=== PATIENT | male | born 1960 | race Caucasian/White ===

== ENCOUNTER → 2020-06-04 16:06 | Outpatient (POV) | payer OTHER, SELFPAY | PROVIDERS: PCP Family Medicine; Visit Provider Dermatology | DX: Z00.00 Encounter for general adult medical examination without abnormal findings (principal) ==

== ENCOUNTER → 2020-12-11 06:18 | Outpatient (CLI) | payer OTHER, SELFPAY ==
--- NOTE | 2020-12-11 | CA_ITS ---
APPROVED REPORT Exam: Exercise Treadmill Technologist: Dionne Nielsen Ht: 5 ft 6 in Wt: 198 lbs BSA: 1.99 m2 HR: 58 bpm BP: 155/95 mmHg Indications: HYPERtension Medical History Medications: Losartan,,,,, FeNOfibrate,,,,, Vitamin D2,,,,, Stress Test Details Test: Idris HR Resting HR: 77 bpm Max Heart Rate (APMHR): 161 bpm Max HR Achieved: 158 bpm Target HR (85% APMHR): 136 bpm % of APMHR: 98 Recovery HR: 105 bpm BP Resting BP: 155.0/95.0 mmHg Max BP: 168.0/92.0 mmHg Recovery BP: 144.0/92.0 mmHg ECG Resting ECG: Sinus bradycardia, otherwise normal Clinical Exercise duration: 10:01 min Highest Stage Achieved: Exercise capacity: 12.8 METs Stress ECG Conclusion Patient exercised 10:00 on Idris Protocol. Test stopped due to shortness of air, fatigue. Symptoms: Pleuretic like chest pain (with inspiration), shortness of air. Arrhythmias/Ectopy: None ST-T Changes: 0.5 mm horizontal and upsloping ST depression inferiorly and laterally. Conclusion: Atypical chest pain and within normal EKGs. Myoview images reported separately. Test Summary Stage 4 01:01 16.0 4.2 157 . . . . REST . . . . . . . Standing REST 07:54 0.0 0.0 77 . 155/ 95 . . Stage 1 01:00 10.0 1.7 103 . . . . Stage 1 02:00 10.0 1.7 105 . . . . Stage 1 03:00 10.0 1.7 109 . 165/ 92 . . Stage 2 01:00 12.0 2.5 117 . . . . Stage 2 02:00 12.0 2.5 125 . . . . Stage 2 03:00 12.0 2.5 123 . 168/ 92 . . Stage 3 01:00 14.0 3.4 136 . . . . Stage 3 02:00 14.0 3.4 143 . . . . Stage 3 03:00 14.0 3.4 146 . . . . Stage 4 01:00 16.0 4.2 158 . . . . Stage 4 01:01 16.0 4.2 157 . . . Stop exercise at 10:01 RECOVERY 01:00 0.0 0.0 138 . . . . RECOVERY 02:00 0.0 0.0 125 . 156/ 80 . . RECOVERY 03:00 0.0 0.0 112 . 168/ 95 . . RECOVERY 04:00 0.0 0.0 105 . 168/ 95 . . RECOVERY 05:00 0.0 0.0 104 . 144/ 92 . . RECOVERY 05:35 0.0 0.0 105 . 144/ 92 . . Electronically signed by : Marcin Aparicio, 12/11/2020 18:45:13
--- NOTE | 2020-12-11 06:26 | NM_ITS ---
APPROVED REPORT Exam: Nuclear Stress Test Indication: Chest pain, SOB, Syncope, HTN, High cholesterol Patient Location: Outpatient Stress Tech: Dionne Nielsen NE Tech:Anna Gordon, ARRT, RT (R)(N) Ht: 5 ft 7 in Wt: 198 lbs HR: 58 bpm BP: 155/95 mmHg BSA: 2.01 m2 BMI: 31.0 History: Chest pain, SOB, Syncope, HTN, High cholesterol Procedure: Patient exercised on Idris protocol 10:00 minutes and sec, resting heart rate 58 bpm, resting blood pressure 155/95 mmHg, with exercise maximum heart rate achived was 158 bpm which is 98 % of the maximum predicted heart rate and blood pressure was 168/92 mmHg. Test was stopped due to SOA and fatigue. Patient has good exercise capacity, achieved 12.8 METs of workload on treadmill, the blood pressure response to exercise was Adequate. Electrocardiogram Resting electrocardiogram shows sinus rhythm, with exercise there is less than 1.[address] segment depression noted from the baseline EKG. The EKG portion of the exercise Myoview is negative for ischemia. Cardiac Stress and Resting SPECT Images: Cardiac Stress and Resting SPECT images were obtained using technetium 99m Myoview 32.1 mCi stress and 10.56 mCi at rest. Gated images for analysis of segmental wall motion and calculation of the ejection fraction also done. Prone images were also obtained. Cardiac stress and resting SPECT images show uniform myocardial activity without segmental perfusion abnormality, computer derived ejection fraction is 55% with no regional wall motion abnormality. Right ventricle is normal size and contractility. Conclusion: 1. The EKG portion of the exercise Myoview is negative for ischemia, patient has good exercise capacity achieved 12.8 mets of workload on treadmill, the blood pressure response to exercise was adequate, patient complained of pleuritic chest pain without EKG changes. 2. No scintigraphic evidence of reversible ischemia seen, computer derived ejection fraction is 55% with no regional wall motion abnormality, right ventricle is normal size and contractility. Electronically signed by : Marcin Aparicio, 12/11/2020 18:54:36
--- NOTE | 2020-12-11 08:11 | HMH.ITSHM ---
Current Home Medications as stated by this patient David Pop or medicare sales representative. []LOSARTAN FENOFIBRATE VITAMIN D2
== END ==
PROVIDERS: PCP Family Medicine; Visit Provider Nurse Practitioner Family
DX: I10 Essential (primary) hypertension (principal)
CPT/HCPCS: 78452; 93017; A9502

== ENCOUNTER → 2021-01-03 08:51 | Outpatient (CLI) | payer OTHER, SELFPAY ==
--- NOTE | 2021-01-03 08:51 | CA_ITS ---
APPROVED REPORT EXAM: Comprehensive 2D, Doppler, and color-flow Echocardiogram Interrelated Special Education Teacher: Karrie Zambrano RVT Ht: 5 ft 7 in Wt: 194lbs BSA: 2.00 BP: 120/80 mmHg Indications: SOA,CP,FATIGUE,NEAR SYNCOPE,HTN,HLD 2D Dimensions LVOT 2.03 cm (M/F) 1.5-2.5 LA Volume 23.90 mL LA Volume Index 12.01 mL/m2 (M/F) 16-34 M-Mode Dimensions RVDd 2.82 cm (0.9-2.6) LA Diam 3.57 cm (1.9-4.0) LVDd 5.33 cm (3.5-5.7) Ao Diam 2.89 cm (2.0-3.7) LVDs 3.73 cm (3.5-5.7) IVSd 0.76 cm (0.6-1.1) PWd 0.61 cm (0.6-1.1) EF (Teich) 56.70% FS 30.00% EDV (Teich) 137.10 mL TAPSE 1.25 (<1.7) ESV (Teich) 59.30 mL LV Diastology E Decel Time 160.00 (160-240 msec) E/A Ratio 1.0 MED E' 8.50 (< 7 cm/sec) E'/MED E' Ratio 8.12 (>14) LAT E' 9.90 (<10 cm/sec) E/LAT E' Ratio 6.97 (>14) Aortic Valve AO Peak GR. 6.50 mmHg Mitral Valve MV E Max Tremayne. 69.00 (40-130 cm/s) MV A Velocity 70.00 (40-130 cm/s) E/A Ratio 0.99 MV Decel. Time 160.00 (160-240 ms) MV PHT 47.00 ms Pulmonary Valve PV Peak Velocity 91.00 (50-150 cm/s) Left Ventricle Left atrium is normal size, left ventricle is normal size, there is no concentric left ventricular hypertrophy, visually estimated ejection fraction 55% with no regional wall motion abnormality, diastolic parameters are within normal range. Right Ventricle Right atrium and right ventricle are normal size and contractility. Aortic Valve Aortic valve is minimally thickened and fibrosed. There is no aortic stenosis or aortic insufficiency. Mitral Valve Mitral valve is grossly normal, there is trace mitral regurgitation. Tricuspid Valve Tricuspid valve grossly normal, there is trace tricuspid regurgitation, tricuspid regurgitation jet velocity is inadequate for calculation of the right ventricular systolic pressure. Pulmonic Valve Pulmonic valve is poorly visualized. Great Vessels Aortic root is normal size. Pericardium No significant pericardial effusion noted. Conclusion 1. Normal left ventricular size, preserved left ventricular systolic function, visually estimated ejection fraction 55% with no regional wall motion abnormality, diastolic parameters are within normal range. 2. Trace mitral and tricuspid regurgitation. 3. No significant pericardial effusion noted. Electronically signed by : Marcin Aparicio, 01/03/2021 10:41:04
[2021-01-03 11:07] LABS: Bilirubin,Unconjugated 0.8 mg/dL (0.0-1.1)
[2021-01-03 11:08] LABS: Alanine Aminotransferase 75 U/L (12-78); Alkaline Phosphatase 88 U/L (38-126); Aspartate Amino Transferase 93 U/L (17-59); Bilirubin,Direct 0.2 mg/dl (0.0-0.4); Bilirubin,Indirect 0.8 mg/dL (0.0-0.9); Chol/HDL Ratio 3.2 (1-3.5); Cholesterol 204 mg/dl (140-200); HDL Cholesterol 64 mg/dl (40-60); Total Protein,Serum 7.4 g/dl (6.3-8.2); Triglycerides 132 mg/dl (30-150); VLDL Cholesterol 26 mg/dL (0-40)
[2021-01-03 11:20] LABS: Direct LDL Cholesterol 112.77 mg/dL (100-129)
== END ==
PROVIDERS: PCP Nurse Practitioner Family; Visit Provider Nurse Practitioner Family
DX: R07.9 Chest pain, unspecified (principal); R06.00 Dyspnea, unspecified; R55 Syncope and collapse; R53.83 Other fatigue; E78.5 Hyperlipidemia, unspecified; I10 Essential (primary) hypertension
CPT/HCPCS: 36415; 80061; 80076; 93306

== ENCOUNTER → 2023-03-01 09:09 | Outpatient (CLI) | payer OTHER, SELFPAY ==
[2023-03-01 10:42] LABS: Chloride 106 mmol/L (98-107)
[2023-03-01 10:43] LABS: Potassium 4.1 mmoL/L (3.5-5.1); Sodium 141 mmol/L (136-145)
[2023-03-01 10:45] LABS: Alanine Aminotransferase 44 U/L (12-78); Aspartate Amino Transferase 84 U/L (17-59); Blood Urea Nitrogen 8 mg/dl (9-20); Estimated Glomerular Filt Rate 137 ml/min (>60); GFR (African American) 165 ML/MIN (>60)
[2023-03-01 10:46] LABS: Albumin Level 3.1 g/dl (3.5-5.0); Albumin/Globulin Ratio 0.7 (1.1-1.8); Alkaline Phosphatase 257 U/L (38-126); Anion Gap 10.1 mEq/L (5-15); Bilirubin,Total 3.6 mg/dl (0.2-1.3); Calcium 8.2 mg/dl (8.4-10.2); Carbon Dioxide 29 mmol/L (22.0-30.0); Globulin 4.2 g/dL (1.3-3.2); Glucose 104 mg/dl (74-100); Total Protein,Serum 7.3 g/dl (6.3-8.2)
== END ==
PROVIDERS: PCP Family Medicine; Visit Provider Nurse Practitioner Family
DX: D69.6 Thrombocytopenia, unspecified (principal)
CPT/HCPCS: 36415; 80053

== ENCOUNTER → 2023-03-03 10:00 | Outpatient (CLI) | payer OTHER, SELFPAY ==
--- NOTE | 2023-03-03 10:09 | CT_ITS ---
FINAL REPORT TECHNIQUE: Axial CT images of the abdomen were obtained with IV contrast only. Coronal reformatted images were also obtained. This study was performed with techniques to keep radiation doses as low as reasonably achievable (ALARA). Individualized dose reduction techniques using automated exposure control or adjustment of mA and/or kV according to the patient''s size were employed. CLINICAL HISTORY: LOW PLATELET COMPARISON: None FINDINGS: Small pleural effusions. There is mild bibasilar atelectasis. There is a lobular liver contour consistent with cirrhosis. The gallbladder is distended with gallstones. There is no evidence of biliary ductal dilatation. The pancreas appears normal. There is splenomegaly with the spleen measuring 14.5 cm in length. There are several nonobstructing left renal stones measuring up to 10 mm. There is no evidence of adenopathy. There are varices in the upper abdomen. There is a moderate amount of ascites. IMPRESSION: Findings of cirrhosis with portal hypertension and upper abdominal varices. Moderate ascites. Cholelithiasis. Left nephrolithiasis. Reviewed, Interpreted and Dictated by David Hebert III, MD Transcribed by Roshni Benjamin Authenticated and [facility]
== END ==
PROVIDERS: PCP Nurse Practitioner Family; Visit Provider Internal Medicine
DX: D69.6 Thrombocytopenia, unspecified (principal)
CPT/HCPCS: 74160; Q9967

== ENCOUNTER → 2023-10-12 08:00 | Outpatient (CLI) | payer OTHER, SELFPAY ==
--- NOTE | 2023-10-12 08:05 | US_ITS ---
FINAL REPORT TECHNIQUE: Ultrasound images of the right upper quadrant were obtained. CLINICAL HISTORY: CIRRHOSIS FINDINGS: Limited images of the pancreas are obscured by bowel gas. The liver has a cirrhotic appearance. Portal vein is patent. There is hepatofugal flow. There is a small amount of ascites. Gallstones are present. IMPRESSION: Cirrhotic appearance of liver with reversed portal venous flow and small amount of ascites indicative of portal hypertension. Cholelithiasis. Reviewed, Interpreted and Dictated by Shelia Euceda MD Transcribed by Lynne Short Authenticated and . [facility]
== END ==
PROVIDERS: PCP Family Medicine; Visit Provider Internal Medicine Gastroenterology
DX: K74.60 Unspecified cirrhosis of liver (principal); R18.8 Other ascites
CPT/HCPCS: 36415; 93975

== ENCOUNTER → 2023-10-19 07:44 | Outpatient (CLI) | payer OTHER, SELFPAY ==
[2023-10-19 09:26] LABS: Hematocrit 34.5 % (42.0-52.0); Hemoglobin 11.6 g/dL (14.1-18.0); Mean Corpuscular HGB Conc 33.6 g/dL (31.8-35.4); Mean Corpuscular Hemoglobin 36.4 pg (27.0-31.2); Mean Corpuscular Volume 108.1 fl (80-94); Platelet Count 65 K/mm3 (142-424); Red Blood Count 3.19 M/mm3 (4.60-6.20); Red Cell Distribution Width 15.7 % (11.5-17.5); White Blood Count 4.7 K/mm3 (4.8-10.8)
[2023-10-19 09:31] LABS: Activated Partial Thrombo Time 31.1 seconds (22.8-30.6); INR 1.32 (0.9-1.1)
[2023-10-19 09:54] LABS: Alanine Aminotransferase 37 U/L (12-78); Albumin Level 2.5 g/dl (3.5-5.0); Albumin/Globulin Ratio 0.7 (1.1-1.8); Alkaline Phosphatase 172 U/L (38-126); Anion Gap 6.7 mEq/L (5-15); Aspartate Amino Transferase 52 U/L (17-59); Bilirubin,Total 2.5 mg/dl (0.2-1.3); Blood Urea Nitrogen 11 mg/dl (9-20); Calcium 7.4 mg/dl (8.4-10.2); Carbon Dioxide 26 mmol/L (22.0-30.0); Chloride 108 mmol/L (98-107); Estimated Glomerular Filt Rate 98 ml/min (>60); GFR (African American) 119 ML/MIN (>60); Globulin 3.4 g/dL (1.3-3.2); Glucose 125 mg/dl (74-100); Potassium 3.7 mmoL/L (3.5-5.1); Sodium 137 mmol/L (136-145); Total Protein,Serum 5.9 g/dl (6.3-8.2)
== END ==
PROVIDERS: Visit Provider Internal Medicine Gastroenterology
DX: K72.90 Hepatic failure, unspecified without coma (principal)
CPT/HCPCS: 36415; 80053; 85014; 85018; 85048; 85049; 85610; 85730

== ENCOUNTER → 2023-11-02 07:01 | Outpatient (CLI) | payer OTHER, SELFPAY ==
--- NOTE | 2023-11-02 07:01 | CT_ITS ---
FINAL REPORT CLINICAL HISTORY: cough and chronic drainage FINDINGS: There is mild mucoperiosteal thickening of the maxillary sinuses. The ostiomeatal units are patent. There is no fracture. There are no air-fluid levels. IMPRESSION: Sinusitis as above. Reviewed, Interpreted and Dictated by Olman Velze MD Transcribed by Chasity Jean Baptiste Authenticated and [facility]
== END ==
PROVIDERS: PCP Family Medicine; Visit Provider Nurse Practitioner
DX: J34.89 Other specified disorders of nose and nasal sinuses (principal); R09.89 Other specified symptoms and signs involving the circulatory and respiratory systems
CPT/HCPCS: 70486

== ENCOUNTER 2023-11-15 11:19 | Emergency (ER) | payer BC, SELFPAY ==
[2023-11-15 13:05] VITALS: BP 129/79; PULSE 71; RESP 19; TEMP 37.2; O2SAT 98; BMI 30.4
--- NOTE | 2023-11-15 13:24 | ED_ITS ---
Discharge Plan Disposition Patient Disposition: Home, Self-Care Condition: Good Prescriptions Prescriptions: New levofloxacin 500 mg tablet 500 mg PO DAILY Qty: 10 0RF No Action spironolactone 50 mg tablet 50 mg PO DAILY furosemide 20 mg tablet 20 mg PO DAILY omeprazole 20 mg capsule,delayed release(DR/EC) 20 mg PO DAILY carvedilol 3.125 mg tablet 3.125 mg PO ONCE Xifaxan 550 mg tablet 550 mg PO ONCE levocetirizine [Xyzal] 5 mg tablet 5 mg PO DAILY Qty: 30 3RF Referrals Follow up/Referrals: Urban Stafford MD [Staff Physician] - See instructions (call office for appointment ) ProviderTami MD [Primary Care Provider] - See instructions Activity Restrictions/Add. Instructions Additional Instructions/Restrictions: Call and make appointment with Urology you may call the hospital and ask for Urology as soon as possible Follow up with your Family Doctor for follow up if you dont have one we can give you a list of accepting clinics you said you had seen Kathryn Mojica in the past she is now at [facility] [phone] Take medication as prescribed for length of time prescribed Straight to ER if you have any fever, abdominal pain, chills or life threatening symptoms Clinical Impressions Clinical Impression: Epididymitis Instructions Patient Instructions: Epididymitis, DI for Epididymitis, Levofloxacin Discharge ED Provider: Tamia Maxwell [facility] General Stated complaint: pain in lower back, pain in testicles Mode of Arrival: Ambulatory Source of Information: Patient Limitations: No Limitations Time Seen by Provider: 11/15/23 13:24 Description of Symptoms (Recalled from Triage Doc. by RN): PATIENT C/O RIGHT LOWER BACK PAIN AND SORE TESTICLES X 1 WEEK HEENT Symptoms (Recalled from RN notes): No Resp Symptoms (Recalled from RN notes): No Skin Symptoms (Recalled from RN notes): No MS Symptoms (Recalled from RN notes): No Functional Status (Recalled from RN notes): WNL History of Present Illness Provider Complaint: Patient states that for the last week he has been having pain in his right lower back that comes around his side into his right testicle States that he has been having pain for about a week and noticed the swelling in his right testicle has got worse and more uncomfortable hurts when he sits and moves certain ways denies fever, chills or any n/v Related Data Home Medications Medication Instructions Recorded Confirmed furosemide 20 mg tablet 20 mg PO DAILY 07/15/23 11/15/23 omeprazole 20 mg capsule,delayed 20 mg PO DAILY 07/15/23 11/15/23 release spironolactone 50 mg tablet 50 mg PO DAILY 07/15/23 11/15/23 carvedilol 3.125 mg tablet 3.125 mg PO ONCE 10/25/23 11/15/23 rifaximin 550 mg tablet (Xifaxan) 550 mg PO ONCE 10/25/23 11/15/23 Previous Rx's Medication Instructions Recorded levocetirizine 5 mg tablet (Xyzal) 5 mg PO DAILY #30 tabs 11/09/23 levofloxacin 500 mg tablet 500 mg PO DAILY #10 tabs 11/15/23 Allergies Allergy/AdvReac Type Severity Reaction Status Date / Time atorvastatin [From Lipitor] AdvReac Intermediate chest pain Verified 11/09/23 15:11 lisinopril AdvReac cough Verified 11/09/23 15:11 Worker's Comp Is this a Worker's Comp case?: No [facility] Disclaimer: The information contained in this section may have been updated after the patient was seen, as this information can be updated by other users. Medical History (Updated 11/15/23 @ 15:02 by Tamia Maxwell APRN) Abnormal EKG Bilateral impacted cerumen Chronic sinusitis HLD (hyperlipidemia) HTN (hypertension) Migraine Surgical History H/O hernia repair Family History Other Asthma Cancer Diabetes Social History Smoking Status: Never smoker alcohol intake: current substance use type: denies use current occupational status: employed Travel in the last 8 weeks: None household members: family housing: house ROS Obtained: Yes All systems reviewed & no additional complaints except as documented and Yes Systems reviewed as appropriate & no additional complaints except as documented Constitutional Constitutional: Reports system reviewed and no additional complaints, except as documented, Reports as per HPI, Denies body ache, Denies chills and Denies fever(s) ENT Ears, Nose, Mouth, and Throat: Reports system reviewed and no additional complaints, except as documented and Reports as per HPI Cardiovascular Cardiovascular: Reports system reviewed and no additional complaints, except as documented and Reports as per HPI Respiratory Respiratory: Reports system reviewed and no additional complaints, except as documented and Reports as per HPI Gastrointestinal Gastrointestingal: Reports system reviewed and no additional complaints, except as documented and as per HPI; Denies abdominal pain Genitourinary Male Genitourinary: Reports system reviewed and no additional complaints, except as documented, Reports as per HPI and Reports testicular pain (right side testicular pain and swelling) Musculoskeletal Musculoskeletal: Reports system reviewed and no additional complaints, except as documented and Reports as per HPI Physical Exam General General appearance: alert and in no apparent distress ENT ENT exam: Present mucous membranes moist Respiratory Respiratory exam: Present normal lung sounds bilaterally; Absent respiratory distress or wheezes Cardiovascular Cardiovascular exam: Present regular rate, normal rhythm and normal heart sounds Abdominal Exam Abdominal exam: Present soft and normal bowel sounds; Absent distention or tenderness exam: Present testicular tenderness (right testicular pain and swelling ) and scrotal swelling Expanded Exam Scrotal exam: right: testicular tenderness and testicular swelling Neurological Exam Neurological exam: Present alert, oriented X3 and normal gait Medical Decision Making Dieter Inquiry Pt receiving controlled substance: No Dieter was queried for this patient: No Vital Signs: 11/15/23 13:05 Temperature 98.9 F Temperature Source Oral Pulse Rate [Left Brachial] 71 Respiratory Rate 19 Blood Pressure [Left Arm] 129/79 Blood Pressure Mean [Left Arm] 95 Blood Pressure Source [Left Arm] Automatic Cuff Blood Pressure Position [Left Arm] Sitting 02 Sat by Pulse Oximetry 98 Oxygen Delivery Method Room Air Lab Data Lab results reviewed: Yes I reviewed the patient's lab results. CT Data ED CT Reviewed: Yes I have viewed the radiologist's interpretation US Data US Images: Other (testicular) ED US Reviewed: Yes I have viewed radiologist's interpretation Findings Narrative: IMPRESSION: 1. Increased blood flow noted to both epididymi consistent with bilateral epididymitis. 2. Right-sided varicocele and spermatocele present. 3. No evidence of testicular torsion. 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
[2023-11-15 13:37] LABS: Apearance,Urine Cloudy (Clear); Bilirubin,Urine Negative (Negative); Blood, Urine Trace (Negative); Color,Urine Dark Yellow (Yellow); Glucose,Urine (UA) Negative (Negative); Ketones,Urine Negative (Negative); Protein,Urine Negative (Negative); UTC Leukocyte Esterase,Urine 2+ (Negative); UTC Nitrate,Urine Negative (Negative); Urobilinogen,Urine 0.2 EU/dl (0.2)
--- NOTE | 2023-11-15 14:13 | US_ITS ---
PROCEDURE INFORMATION: Exam: US Scrotum and US Duplex Artery and Vein, Scrotum, Complete Exam date and time: 11/15/2023 2:16 PM Age: 63 years old Clinical indication: Scrotum pain; Additional info: Swelling/pain right testicle TECHNIQUE: Imaging protocol: Real-time ultrasound of the scrotum. Real-time duplex ultrasound scan of the arterial and venous flow of the scrotum with B-mode, color Doppler flow and spectral waveform analysis. Complete exam. Duplex exam was performed to evaluate for torsion and other vascular conditions. Total images: 1102 COMPARISON: US ABDOMEN LIMITED W/DOPPLER 10/12/2023 8:12 AM FINDINGS: Right testicle: Right testicle measures 2.0 x 3.8 x 2.4 cm. Blood flow is demonstrated to the right testicle. Left testicle: Left testicle measures 3.3 x 2.2 x 2.5 cm. Blood flow is demonstrated to the left testicle. Epididymides: Increased blood flow noted to both epididymi consistent with bilateral epididymitis. Scrotum: Right-sided varicocele and spermatocele present. IMPRESSION: 1. Increased blood flow noted to both epididymi consistent with bilateral epididymitis. 2. Right-sided varicocele and spermatocele present. 3. No evidence of testicular torsion.
[2023-11-15 15:07] VITALS: BP 129/79; PULSE 71; RESP 19; TEMP 37.2; O2SAT 98
== END 2023-11-15 15:18 | disposition home or self-care (01) ==
PROVIDERS: Emergency Provider Nurse Practitioner
DX: N45.1 Epididymitis (principal); B95.61 Methicillin susceptible Staphylococcus aureus infection as the cause of diseases classified elsewhere; M54.59 Other low back pain; I10 Essential (primary) hypertension; E78.5 Hyperlipidemia, unspecified; K74.60 Unspecified cirrhosis of liver
CPT/HCPCS: 76870; 81003; 87086; 99204; 99212; G0463

== ENCOUNTER 2023-11-17 07:02 | Outpatient (CLI) | payer BC, SELFPAY | END 2023-11-17 23:59 | LOC: LAB.DROPOF 11-18 07:02 | PROVIDERS: PCP Internal Medicine; Visit Provider Internal Medicine | DX: K74.60 Unspecified cirrhosis of liver (principal) | CPT/HCPCS: 82043 ==

== ENCOUNTER 2023-12-02 07:56 | Outpatient (CLI) | payer BC, SELFPAY ==
[2023-12-02 08:12] VITALS: BMI 30.4
--- NOTE | 2023-12-02 08:20 | PC.NURSE ---
0820-collected labs via venipuncture stick in left ac with butterfly needle;pt to wait on labs for possible therapeutic phlebotomy if ferritin >100 and hgb >11
[2023-12-02 08:35] LABS: Hematocrit 38.3 % (42.0-52.0); Hemoglobin 12.5 g/dL (14.1-18.0)
[2023-12-02 09:11] LABS: Ferritin 286 ng/ml (17.9-464)
[2023-12-02 09:20] VITALS: BP 109/69; PULSE 59; RESP 17; TEMP 36.3; O2SAT 96
[2023-12-02 10:20] VITALS: BP 150/87; PULSE 61; RESP 18; O2SAT 96
== END 2023-12-02 10:25 | disposition home or self-care (01) ==
LOC: INF 07:57
PROVIDERS: PCP Internal Medicine; Visit Provider Nurse Practitioner
DX: R79.89 Other specified abnormal findings of blood chemistry (principal); E83.19 Other disorders of iron metabolism; K72.90 Hepatic failure, unspecified without coma
CPT/HCPCS: 36415; 82728; 85014; 85018; 99195

== ENCOUNTER 2023-12-22 15:54 | Outpatient (CLI) | payer BC, SELFPAY ==
--- NOTE | 2023-12-22 15:55 | US_ITS ---
FINAL REPORT CLINICAL HISTORY: . FINDINGS: The right kidney measures 11.1 cm in length. It is normal in echogenicity. There is no hydronephrosis. The left kidney measures 11.0 cm in length. It is normal in echogenicity. There is no hydronephrosis. There are left renal stones measuring 8 and 9 mm. There is borderline splenomegaly measuring 13.5 cm. Note is made of coarsened hepatic echotexture, likely represents cirrhosis. IMPRESSION: Left nephrolithiasis. Borderline splenomegaly. Cirrhosis. Reviewed, Interpreted and Dictated by David Hebert III, MD Transcribed by Chasity Jean Baptiste Authenticated and [facility]
== END 2023-12-22 23:59 ==
LOC: RAD 15:55
PROVIDERS: PCP Internal Medicine; Visit Provider Urology
DX: N39.0 Urinary tract infection, site not specified (principal)
CPT/HCPCS: 76770

== ENCOUNTER 2023-12-27 14:19 | Outpatient (CLI) | payer BC, SELFPAY ==
[2023-12-27 14:21] LABS: Microscopic, Urine URINE MICROSCOPIC (MICROSCOPIC)
[2023-12-27 14:39] LABS: Appearance,Urine CLEAR (Clear); Bilirubin,Urine Negative (Negative); Blood, Urine Negative (Negative); Color,Urine YELLOW (Yellow); Glucose,Urine (UA) Negative (Negative); Ketones,Urine Negative (Negative); Leukocyte Esterase,Urine TRACE (Negative); Nitrate,Urine Negative (Negative); PH,Urine 5.5 (5.0-8.5); Protein,Urine Negative (Negative); Urobilinogen,Urine 0.2 EU/dl (0.2)
[2023-12-27 15:12] LABS: RBC,Urine Occasional #/hpf (0-3); WBC,Urine Occasional #/hpf (0-3)
== END 2023-12-27 23:59 ==
LOC: LAB.DROPOF 14:20
PROVIDERS: PCP Urology; Visit Provider Urology
DX: N39.0 Urinary tract infection, site not specified (principal)
CPT/HCPCS: 81001; 87086

== ENCOUNTER 2023-12-29 08:35 | Outpatient (CLI) | payer BC, SELFPAY ==
[2023-12-29 08:58] LABS: Hematocrit 37.7 % (42.0-52.0); Hemoglobin 12.4 g/dL (14.1-18.0)
[2023-12-29 09:49] LABS: Ferritin 145 ng/ml (17.9-464)
[2023-12-29 10:15] VITALS: BP 113/62; PULSE 69; RESP 17; O2SAT 97
[2023-12-29 10:35] VITALS: BP 106/54; PULSE 64; RESP 18; O2SAT 98
[2023-12-29 10:39] LABS: Blood Urea Nitrogen 13 mg/dl (9-20); Creatinine Clearance Estimated 98 mL/min (50-200); Estimated Glomerular Filt Rate 114 ml/min (>60); GFR (African American) 138 ML/MIN (>60)
== END 2023-12-29 10:35 | disposition home or self-care (01) ==
LOC: INF 08:37
PROVIDERS: Urology; PCP Internal Medicine; Visit Provider Nurse Practitioner
DX: E83.19 Other disorders of iron metabolism (principal); K72.90 Hepatic failure, unspecified without coma
CPT/HCPCS: 36415; 82565; 82728; 84520; 85014; 85018; 99195

== ENCOUNTER 2023-12-30 09:21 | Outpatient (CLI) | payer BC, SELFPAY ==
--- NOTE | 2023-12-30 09:22 | CT_ITS ---
FINAL REPORT TECHNIQUE: Axial CT images of the abdomen and pelvis were obtained before and after the administration of IV contrast. This study was performed with techniques to keep radiation doses as low as reasonably achievable (ALARA). Individualized dose reduction techniques using automated exposure control or adjustment of mA and/or kV according to the patient''s size were employed. CLINICAL HISTORY: kidney stones, hx of cirrhosis COMPARISON: CT abdomen 03/03/2023 FINDINGS: Abdomen: There is mild scarring at the lung bases. The heart is normal in size. The liver has a nodular contour consistent with cirrhosis. There are several gallstones noted. No hepatic masses are identified. There is mild splenomegaly measuring 13.5 cm. Multiple varices are noted involving the abdomen and paraesophageal. There is a small amount of ascites, partially improved from prior. No adrenal masses present. The pancreas has an unremarkable appearance. The kidneys enhance normally. The aorta is normal in caliber. There is wall thickening of the ascending colon which may represent portal colopathy or possibly colitis. There is left urothelial thickening, likely inflammatory. There is a small umbilical hernia containing fat and varices. Precontrast images demonstrate several stones in the left renal collecting system. The largest in the left renal pelvis measures 12 mm and is stable. Pelvis: The appendix is not well visualized. There is mild bladder wall thickening, likely inflammatory. No inflammatory process is seen. There is no evidence of mass or adenopathy. There is no evidence of bowel obstruction. IMPRESSION: Partially improved small amount of ascites. Otherwise, stable exam. Reviewed, Interpreted and Dictated by David Hebert III, MD Transcribed by Roshni Benjamin Authenticated and [facility]
[2023-12-30] MEDS: IOPAMIDOL-370 (76%);100ML BOTTLE 75 ML IV (09:53)
[2023-12-30] MEDS: SODIUM CHLORIDE 0.9% 10ML SYR (RAD ONLY) 10 ML IV (09:53)
== END 2023-12-30 23:59 ==
LOC: RAD 09:22
PROVIDERS: PCP Urology; Visit Provider Urology
DX: N20.0 Calculus of kidney (principal)
CPT/HCPCS: 74178; Q9967

== ENCOUNTER 2024-01-05 21:02 | Outpatient (CLI) | payer BC, SELFPAY ==
[2024-01-05 17:56] LABS: Adenovirus,PCR Not Detected (NotDetected); Coronavirus 19, PCR Not Detected (NotDetected); Coronavirus 229E Not Detected (NotDetected); Coronavirus NL63 Not Detected (NotDetected); Coronavirus OC43 Not Detected (NotDetected); Coronovirus HKU1,PCR Not Detected (NotDetected); Human Metapneumovirus Not Detected (NotDetected); Influenza A, PCR Not Detected (NotDetected); Influenza AH1, 2009 Not Detected (NotDetected); Influenza AH1, PCR Not Detected (NotDetected); Influenza AH3,PCR Not Detected (NotDetected); Influenza B, PCR Not Detected (NotDetected); Parainfluenza 1, PCR Not Detected (NotDetected); Parainfluenza 2, PCR Not Detected (NotDetected); Parainfluenza 3, PCR Not Detected (NotDetected); Parainfluenza 4, PCR Not Detected (NotDetected); Respiratory Syncytial Virus Not Detected (NotDetected); Rhinovirus/Enterovirus Not Detected (NotDetected)
== END 2024-01-05 23:59 ==
LOC: LAB.DROPOF 21:02
PROVIDERS: PCP Nurse Practitioner Family; Visit Provider Nurse Practitioner Family
DX: R05.8 Other specified cough (principal)
CPT/HCPCS: 87581; 87632; 87635; 87798

== ENCOUNTER 2024-01-26 08:56 | Outpatient (CLI) | payer BC, SELFPAY ==
[2024-01-26 09:00] VITALS: BMI 30.4
--- NOTE | 2024-01-26 09:05 | PC.NURSE ---
0905-jessica rodriguez collected labs via venipuncture stick in right ac with butterfly needle; pt to wait on labs for possible therapeutic phlebotomy if hgb >11 and ferritin >100
[2024-01-26 09:15] LABS: Hematocrit 37.9 % (42.0-52.0); Hemoglobin 12.3 g/dL (14.1-18.0)
[2024-01-26 10:25] LABS: Ferritin 102 ng/ml (17.9-464)
== END 2024-01-26 10:35 | disposition home or self-care (01) ==
LOC: INF 08:57
PROVIDERS: PCP Internal Medicine; Visit Provider Nurse Practitioner
DX: E83.19 Other disorders of iron metabolism (principal); K72.90 Hepatic failure, unspecified without coma
CPT/HCPCS: 36415; 82728; 85014; 85018

== ENCOUNTER 2024-02-23 08:37 | Outpatient (CLI) | payer BC, SELFPAY ==
[2024-02-23 08:42] VITALS: BMI 30.4
--- NOTE | 2024-02-23 08:45 | PC.NURSE ---
0845-collected labs via venipuncture stick in left arm with butterfly needle; pt to wait on labs.
[2024-02-23 09:03] LABS: Hematocrit 38.2 % (42.0-52.0); Hemoglobin 12.2 g/dL (14.1-18.0)
[2024-02-23 09:44] LABS: Ferritin 109 ng/ml (17.9-464)
== END 2024-02-23 10:00 | disposition home or self-care (01) ==
LOC: INF 08:38
PROVIDERS: PCP Internal Medicine; Visit Provider Nurse Practitioner
DX: R79.89 Other specified abnormal findings of blood chemistry (principal); E83.19 Other disorders of iron metabolism
CPT/HCPCS: 36415; 82728; 85014; 85018

== ENCOUNTER 2024-03-22 08:16 | Outpatient (CLI) | payer BC, SELFPAY ==
[2024-03-22 08:30] VITALS: BMI 30.4
--- NOTE | 2024-03-22 08:35 | PC.NURSE ---
0830-pt presents for venipuncture to have labs checked to see if phlebotomy is needed. Venipuncture performed using a butterfly access needle to pt's lt ac x 1 stick per Rosario Harden RN. Blood drawn for labs as ordered and specimens sent to lab for analysis. Needle withdrawn after venipuncture and site secured using 2x2 gauze and coban. Pt states that it normally takes some time for labs results to come back, so pt states he was going to leave and run errands. Pt requested that nursing staff call once labs are resulted and if he needs to, he will return for phlebotomy.
[2024-03-22 08:44] LABS: Hematocrit 38.7 % (42.0-52.0); Hemoglobin 12.7 g/dL (14.1-18.0)
[2024-03-22 09:47] LABS: Ferritin 181 ng/ml (17.9-464)
== END 2024-03-22 11:15 | disposition home or self-care (01) ==
LOC: INF 08:17
PROVIDERS: PCP Internal Medicine; Visit Provider Nurse Practitioner
DX: E83.19 Other disorders of iron metabolism (principal); R79.89 Other specified abnormal findings of blood chemistry
CPT/HCPCS: 36415; 82728; 85014; 85018; 99195

== ENCOUNTER 2024-05-15 13:07 | Outpatient (CLI) | payer BC, SELFPAY ==
[2024-05-15 13:31] LABS: Basophils % 0.9 % (0.1-2.0); Eosinophils # 0.2 K/mm3 (0.0-0.4); Eosinophils % 4.8 % (0.1-12.0); Hematocrit 33.3 % (42.0-52.0); Hemoglobin 11.8 g/dL (14.1-18.0); Lymphocytes # 1.1 K/mm3 (0.7-4.5); Lymphocytes % 34.2 % (10-50); Mean Corpuscular HGB Conc 35.5 g/dL (31.8-35.4); Mean Corpuscular Hemoglobin 38.8 pg (27.0-31.2); Mean Corpuscular Volume 109.3 fl (80-94); Mean Platelet Volume 10.1 fl (7.4-10.4); Monocytes # 0.4 K/mm3 (0.1-1.0); Monocytes % 10.8 % (1.7-9.3); Neutrophils # 1.6 K/mm3 (1.8-7.8); Neutrophils % 49.2 % (37.0-80.0); Platelet Count 55 K/mm3 (142-424); Red Blood Count 3.04 M/mm3 (4.60-6.20); White Blood Count 3.3 K/mm3 (4.8-10.8)
[2024-05-15 13:41] LABS: Activated Partial Thrombo Time 32.5 seconds (22.8-30.6); INR 1.48 (0.9-1.1); Prothrombin Time 15.9 seconds (10.1-12.5)
[2024-05-15 14:54] LABS: Chloride 109 mmol/L (98-107); Sodium 139 mmol/L (136-145)
[2024-05-15 14:55] LABS: Potassium 3.5 mmoL/L (3.5-5.1)
[2024-05-15 14:57] LABS: Alanine Aminotransferase 28 U/L (12-78); Alkaline Phosphatase 211 U/L (38-126); Aspartate Amino Transferase 44 U/L (17-59); Bilirubin,Total 3.7 mg/dl (0.2-1.3); Blood Urea Nitrogen 9 mg/dl (9-20); Estimated Glomerular Filt Rate 114 ml/min (>60); GFR (African American) 138 ML/MIN (>60)
[2024-05-15 14:58] LABS: Albumin Level 2.4 g/dl (3.5-5.0); Albumin/Globulin Ratio 0.7 (1.1-1.8); Anion Gap 6.5 mEq/L (5-15); Calcium 7.7 mg/dl (8.4-10.2); Carbon Dioxide 27 mmol/L (22.0-30.0); Globulin 3.3 g/dL (1.3-3.2); Glucose 120 mg/dl (74-100); Total Protein,Serum 5.7 g/dl (6.3-8.2)
== END 2024-05-15 23:59 | disposition home or self-care (01) ==
LOC: LAB 13:08
PROVIDERS: PCP Internal Medicine; Visit Provider Internal Medicine Gastroenterology
DX: K72.90 Hepatic failure, unspecified without coma (principal)
CPT/HCPCS: 36415; 80053; 85025; 85610; 85730

== ENCOUNTER 2024-05-17 09:26 | Outpatient (CLI) | payer BC, SELFPAY | END 2024-05-17 23:59 | disposition home or self-care (01) | LOC: LAB.DROPOF 05-18 09:27 | PROVIDERS: PCP Family Medicine; Visit Provider Family Medicine | DX: N45.1 Epididymitis (principal); N39.0 Urinary tract infection, site not specified; K72.90 Hepatic failure, unspecified without coma | CPT/HCPCS: 87086; 87088; 87186 ==

== ENCOUNTER 2024-05-23 08:03 | Outpatient (CLI) | payer BC, SELFPAY ==
[2024-05-23 08:17] VITALS: BMI 30.4
--- NOTE | 2024-05-23 08:23 | PC.NURSE ---
0823-collected labs via venipuncture in left ac with a butterfly needle; will wait on labs for possible therapeutic phlebotomy for ferritin > 100
[2024-05-23 08:44] LABS: Hematocrit 35.9 % (42.0-52.0); Hemoglobin 11.9 g/dL (14.1-18.0)
[2024-05-23 09:18] LABS: Ferritin 96.2 ng/ml (17.9-464)
--- NOTE | 2024-05-23 09:30 | PC.NURSE ---
0930-pt d/c home did not receive therapeutic phlebotomy today; ferritin level 96.2
== END 2024-05-23 09:30 | disposition home or self-care (01) ==
LOC: INF 08:08
PROVIDERS: PCP Internal Medicine; Visit Provider Nurse Practitioner
DX: E83.19 Other disorders of iron metabolism (principal); R79.89 Other specified abnormal findings of blood chemistry; K72.90 Hepatic failure, unspecified without coma
CPT/HCPCS: 36415; 82728; 85014; 85018

== ENCOUNTER 2024-05-29 08:50 | Outpatient (CLI) | payer BC, SELFPAY ==
[2024-05-29 09:49] LABS: Anion Gap 8.4 mEq/L (5-15); Blood Urea Nitrogen 14 mg/dl (9-20); Carbon Dioxide 23 mmol/L (22.0-30.0); Chloride 109 mmol/L (98-107); Estimated Glomerular Filt Rate 98 ml/min (>60); GFR (African American) 118 ML/MIN (>60); Glucose 145 mg/dl (74-100); Potassium 4.4 mmoL/L (3.5-5.1); Sodium 136 mmol/L (136-145)
== END 2024-05-29 23:59 | disposition home or self-care (01) ==
LOC: LAB 08:51
PROVIDERS: PCP Internal Medicine; Visit Provider Internal Medicine Gastroenterology
DX: K72.90 Hepatic failure, unspecified without coma (principal)
CPT/HCPCS: 36415; 80048

== ENCOUNTER 2024-06-19 08:52 | Outpatient (CLI) | payer BC, SELFPAY ==
[2024-06-19 08:58] VITALS: BMI 30.4
[2024-06-19 09:13] LABS: Hematocrit 37.2 % (42.0-52.0); Hemoglobin 12.3 g/dL (14.1-18.0)
[2024-06-19 10:03] LABS: Ferritin 119 ng/ml (17.9-464)
== END 2024-06-19 09:10 | disposition home or self-care (01) ==
LOC: INF 08:53
PROVIDERS: PCP Internal Medicine; Visit Provider Nurse Practitioner
DX: K72.90 Hepatic failure, unspecified without coma (principal)
CPT/HCPCS: 36415; 82728; 85014; 85018

== ENCOUNTER 2024-07-03 08:06 | Outpatient (CLI) | payer BC, SELFPAY ==
[2024-07-03 08:34] LABS: Hematocrit 39.9 % (42.0-52.0); Hemoglobin 12.6 g/dL (14.1-18.0); Mean Corpuscular HGB Conc 31.6 g/dL (31.8-35.4); Mean Corpuscular Hemoglobin 34.9 pg (27.0-31.2); Mean Corpuscular Volume 110.3 fl (80-94); Platelet Count 63 K/mm3 (142-424); Red Blood Count 3.62 M/mm3 (4.60-6.20); White Blood Count 3.9 K/mm3 (4.8-10.8)
[2024-07-03 08:41] LABS: INR 1.35 (0.9-1.1); Prothrombin Time 14.7 seconds (10.1-12.5)
[2024-07-03 11:29] LABS: Chloride 110 mmol/L (98-107)
[2024-07-03 11:30] LABS: Albumin Level 2.6 g/dl (3.5-5.0); Potassium 3.8 mmoL/L (3.5-5.1); Sodium 139 mmol/L (136-145)
[2024-07-03 11:33] LABS: Alanine Aminotransferase 37 U/L (12-78); Albumin/Globulin Ratio 0.7 (1.1-1.8); Alkaline Phosphatase 180 U/L (38-126); Anion Gap 2.8 mEq/L (5-15); Aspartate Amino Transferase 63 U/L (17-59); Bilirubin,Total 3.6 mg/dl (0.2-1.3); Blood Urea Nitrogen 10 mg/dl (9-20); Calcium 7.6 mg/dl (8.4-10.2); Carbon Dioxide 30 mmol/L (22.0-30.0); Estimated Glomerular Filt Rate 114 ml/min (>60); GFR (African American) 138 ML/MIN (>60); Globulin 3.5 g/dL (1.3-3.2); Glucose 87 mg/dl (74-100); Total Protein,Serum 6.1 g/dl (6.3-8.2)
== END 2024-07-03 23:59 | disposition home or self-care (01) ==
LOC: LAB 08:07
PROVIDERS: PCP Internal Medicine; Visit Provider Internal Medicine Gastroenterology
DX: K72.90 Hepatic failure, unspecified without coma (principal)
CPT/HCPCS: 36415; 80053; 85014; 85018; 85048; 85049; 85610

== ENCOUNTER 2024-07-18 08:02 | Outpatient (CLI) | payer BC, SELFPAY ==
[2024-07-18 08:14] VITALS: BMI 30.4
--- NOTE | 2024-07-18 08:17 | PC.NURSE ---
0812 Hgb/Hct, ferritin labs obtained via venipuncture to L AC with butterfly needle. Patient here for possible therapeutic phlebotomy based on pending lab results.
[2024-07-18 08:26] LABS: Hematocrit 40.5 % (42.0-52.0); Hemoglobin 12.6 g/dL (14.1-18.0)
[2024-07-18 09:44] LABS: Ferritin 143 ng/ml (17.9-464)
[2024-07-18 10:15] VITALS: BP 137/87; PULSE 80; RESP 18; O2SAT 98
[2024-07-18 10:48] VITALS: BP 128/64; PULSE 72; RESP 18; O2SAT 98
== END 2024-07-18 10:48 | disposition home or self-care (01) ==
LOC: INF 08:03
PROVIDERS: PCP Internal Medicine; Visit Provider Nurse Practitioner
DX: K72.90 Hepatic failure, unspecified without coma (principal)
CPT/HCPCS: 36415; 82728; 85014; 85018; 99195

== ENCOUNTER 2024-07-31 08:12 | Outpatient (CLI) | payer BC, SELFPAY ==
[2024-07-31 08:56] LABS: Hematocrit 37.5 % (42.0-52.0); Hemoglobin 11.7 g/dL (14.1-18.0); Mean Corpuscular HGB Conc 31.2 g/dL (31.8-35.4); Mean Corpuscular Volume 109.3 fl (80-94); Platelet Count 77 K/mm3 (142-424); Red Blood Count 3.43 M/mm3 (4.60-6.20); Red Cell Distribution Width 16.5 % (11.5-17.5); White Blood Count 4.6 K/mm3 (4.8-10.8)
[2024-07-31 09:00] LABS: Activated Partial Thrombo Time 30.8 seconds (22.8-30.6); INR 1.34 (0.9-1.1); Prothrombin Time 14.6 seconds (10.1-12.5)
[2024-07-31 09:28] LABS: Alanine Aminotransferase 39 U/L (12-78); Albumin Level 2.5 g/dl (3.5-5.0); Albumin/Globulin Ratio 0.7 (1.1-1.8); Alkaline Phosphatase 230 U/L (38-126); Anion Gap 1.4 mEq/L (5-15); Aspartate Amino Transferase 59 U/L (17-59); Bilirubin,Total 3.6 mg/dl (0.2-1.3); Blood Urea Nitrogen 11 mg/dl (9-20); Calcium 7.8 mg/dl (8.4-10.2); Carbon Dioxide 29 mmol/L (22.0-30.0); Chloride 111 mmol/L (98-107); Estimated Glomerular Filt Rate 114 ml/min (>60); GFR (African American) 138 ML/MIN (>60); Globulin 3.7 g/dL (1.3-3.2); Glucose 101 mg/dl (74-100); Potassium 3.4 mmoL/L (3.5-5.1); Sodium 138 mmol/L (136-145); Total Protein,Serum 6.2 g/dl (6.3-8.2)
== END 2024-07-31 23:59 | disposition home or self-care (01) ==
LOC: LAB 08:13
PROVIDERS: PCP Internal Medicine; Visit Provider Internal Medicine Gastroenterology
DX: K72.90 Hepatic failure, unspecified without coma (principal)
CPT/HCPCS: 36415; 80053; 85027; 85610; 85730

== ENCOUNTER 2024-08-15 08:23 | Outpatient (CLI) | payer BC, SELFPAY ==
[2024-08-15 08:41] VITALS: BMI 30.4
--- NOTE | 2024-08-15 08:42 | PC.NURSE ---
stuck pt with butterfly needle in RAC. cleansed site with alcohol first. blood return noted. collected a purple and green tube and sent to lab. coban and 2x2s applied. bleeding controlled. pt tolerated well. orders placed. will call pt with results.
[2024-08-15 08:56] LABS: Hematocrit 38.2 % (42.0-52.0); Hemoglobin 12.3 g/dL (14.1-18.0)
[2024-08-15 09:37] LABS: Ferritin 141 ng/ml (17.9-464)
--- NOTE | 2024-08-15 09:54 | PC.NURSE ---
CALLED PT TO LET HIM KNOW HGB WAS 12.3 AND FERRITIN IS 141. PT STATED HE WOULD BE BACK SHORTLY
[2024-08-15 10:25] VITALS: BP 119/67; PULSE 75; RESP 18; TEMP 36.6; O2SAT 96
[2024-08-15 11:07] VITALS: BP 122/70; PULSE 69; RESP 18; TEMP 36.6; O2SAT 97
== END 2024-08-15 11:12 | disposition home or self-care (01) ==
LOC: INF 08:24
PROVIDERS: PCP Internal Medicine; Visit Provider Nurse Practitioner
DX: K72.90 Hepatic failure, unspecified without coma (principal)
CPT/HCPCS: 36415; 82728; 85014; 85018; 99195

== ENCOUNTER 2024-08-28 07:53 | Outpatient (CLI) | payer BC, SELFPAY ==
[2024-08-28 08:27] LABS: Basophils # 0.1 K/mm3 (0-0.2); Basophils % 1.4 % (0.1-2.0); Eosinophils # 0.2 K/mm3 (0.0-0.4); Hematocrit 37.1 % (42.0-52.0); Hemoglobin 12.7 g/dL (14.1-18.0); Lymphocytes # 1.5 K/mm3 (0.7-4.5); Lymphocytes % 39.5 % (10-50); Mean Corpuscular HGB Conc 34.2 g/dL (31.8-35.4); Mean Corpuscular Hemoglobin 36.8 pg (27.0-31.2); Mean Corpuscular Volume 107.5 fl (80-94); Mean Platelet Volume 8.1 fl (7.4-10.4); Monocytes # 0.3 K/mm3 (0.1-1.0); Monocytes % 7.9 % (1.7-9.3); Neutrophils # 1.7 K/mm3 (1.8-7.8); Neutrophils % 45.2 % (37.0-80.0); Platelet Count 59 K/mm3 (142-424); Red Blood Count 3.45 M/mm3 (4.60-6.20); White Blood Count 3.7 K/mm3 (4.8-10.8)
[2024-08-28 08:42] LABS: Activated Partial Thrombo Time 30.5 seconds (22.8-30.6); Prothrombin Time 14.2 seconds (10.1-12.5)
[2024-08-28 09:04] LABS: Albumin Level 2.7 g/dl (3.5-5.0); Chloride 114 mmol/L (98-107); Potassium 3.6 mmoL/L (3.5-5.1); Sodium 140 mmol/L (136-145)
[2024-08-28 09:07] LABS: Alanine Aminotransferase 42 U/L (12-78); Albumin/Globulin Ratio 0.7 (1.1-1.8); Alkaline Phosphatase 194 U/L (38-126); Anion Gap 6.6 mEq/L (5-15); Aspartate Amino Transferase 70 U/L (17-59); Bilirubin,Total 3.2 mg/dl (0.2-1.3); Blood Urea Nitrogen 9 mg/dl (9-20); Carbon Dioxide 23 mmol/L (22.0-30.0); Estimated Glomerular Filt Rate 136 ml/min (>60); GFR (African American) 165 ML/MIN (>60); Total Protein,Serum 6.7 g/dl (6.3-8.2)
[2024-08-28 09:08] LABS: Calcium 8.5 mg/dl (8.4-10.2); Glucose 107 mg/dl (74-100)
== END 2024-08-28 23:59 | disposition home or self-care (01) ==
LOC: LAB 07:54
PROVIDERS: PCP Internal Medicine; Visit Provider Internal Medicine Gastroenterology
DX: K72.90 Hepatic failure, unspecified without coma (principal)
CPT/HCPCS: 36415; 80053; 85025; 85610; 85730

== ENCOUNTER 2024-09-12 08:03 | Outpatient (CLI) | payer BC, SELFPAY ==
--- NOTE | 2024-09-12 08:10 | PC.NURSE ---
0810-e.chaka rn collected labs via venipuncture stick in right ac with butterfly needle pt to wait on labs if ferritin is >100 pt to have therapeutic phlebotomy.
[2024-09-12 08:11] VITALS: BMI 30.4
[2024-09-12 08:21] LABS: Hematocrit 34.6 % (42.0-52.0); Hemoglobin 11.1 g/dL (14.1-18.0)
[2024-09-12 09:08] LABS: Ferritin 109 ng/ml (17.9-464)
== END 2024-09-12 09:30 | disposition home or self-care (01) ==
LOC: INF 08:04
PROVIDERS: PCP Internal Medicine; Visit Provider Nurse Practitioner
DX: K72.90 Hepatic failure, unspecified without coma (principal)
CPT/HCPCS: 36415; 82728; 85014; 85018

== ENCOUNTER 2024-10-09 07:27 | Outpatient (CLI) | payer BC, SELFPAY ==
[2024-10-09 08:09] LABS: Hematocrit 35.6 % (42.0-52.0); Hemoglobin 11.4 g/dL (14.1-18.0); Mean Corpuscular HGB Conc 31.9 g/dL (31.8-35.4); Mean Corpuscular Hemoglobin 32.6 pg (27.0-31.2); Mean Corpuscular Volume 102.1 fl (80-94); Platelet Count 66 K/mm3 (142-424); Red Blood Count 3.49 M/mm3 (4.60-6.20); White Blood Count 5.4 K/mm3 (4.8-10.8)
[2024-10-09 08:11] LABS: Albumin Level 2.2 g/dl (3.5-5.0); Chloride 115 mmol/L (98-107)
[2024-10-09 08:12] LABS: Activated Partial Thrombo Time 31.9 seconds (22.8-30.6); INR 1.44 (0.9-1.1); Potassium 3.8 mmoL/L (3.5-5.1); Prothrombin Time 15.6 seconds (10.1-12.5); Sodium 142 mmol/L (136-145)
[2024-10-09 08:14] LABS: Alanine Aminotransferase 31 U/L (12-78); Anion Gap 2.8 mEq/L (5-15); Aspartate Amino Transferase 41 U/L (17-59); Blood Urea Nitrogen 10 mg/dl (9-20); Carbon Dioxide 28 mmol/L (22.0-30.0); Estimated Glomerular Filt Rate 98 ml/min (>60); GFR (African American) 118 ML/MIN (>60)
[2024-10-09 08:15] LABS: Albumin/Globulin Ratio 0.6 (1.1-1.8); Alkaline Phosphatase 172 U/L (38-126); Bilirubin,Total 2.2 mg/dl (0.2-1.3); Globulin 3.6 g/dL (1.3-3.2); Glucose 98 mg/dl (74-100); Total Protein,Serum 5.8 g/dl (6.3-8.2)
[2024-10-09 08:50] LABS: Ferritin 153 ng/ml (17.9-464)
[2024-10-09 09:35] VITALS: BP 119/69; PULSE 67; RESP 18; O2SAT 96
[2024-10-09 09:55] VITALS: BP 122/65; PULSE 67; RESP 18; O2SAT 97
== END 2024-10-09 10:00 | disposition home or self-care (01) ==
LOC: INF 07:28
PROVIDERS: PCP Internal Medicine; Referring Provider Internal Medicine Gastroenterology; Visit Provider Nurse Practitioner
DX: K72.90 Hepatic failure, unspecified without coma (principal)
CPT/HCPCS: 36415; 80053; 82728; 85027; 85610; 85730; 99195

== ENCOUNTER 2024-11-06 07:04 | Outpatient (CLI) | payer BC, SELFPAY ==
[2024-11-06 07:39] LABS: Hematocrit 35.7 % (42.0-52.0); Hemoglobin 12.1 g/dL (14.1-18.0); Mean Corpuscular HGB Conc 33.9 g/dL (31.8-35.4); Mean Corpuscular Hemoglobin 32.7 pg (27.0-31.2); Mean Corpuscular Volume 96.5 fl (80-94); Platelet Count 74 K/mm3 (142-424); Red Cell Distribution Width 18.3 % (11.5-17.5); White Blood Count 4.1 K/mm3 (4.8-10.8)
[2024-11-06 07:44] LABS: Activated Partial Thrombo Time 31.3 seconds (22.8-30.6); INR 1.41 (0.9-1.1); Prothrombin Time 15.3 seconds (10.1-12.5)
[2024-11-06 07:57] LABS: Alanine Aminotransferase 37 U/L (12-78); Albumin Level 2.5 g/dl (3.5-5.0); Albumin/Globulin Ratio 0.7 (1.1-1.8); Alkaline Phosphatase 238 U/L (38-126); Anion Gap 4.7 mEq/L (5-15); Aspartate Amino Transferase 62 U/L (17-59); Bilirubin,Total 2.8 mg/dl (0.2-1.3); Blood Urea Nitrogen 9 mg/dl (9-20); Carbon Dioxide 26 mmol/L (22.0-30.0); Chloride 110 mmol/L (98-107); Estimated Glomerular Filt Rate 114 ml/min (>60); GFR (African American) 138 ML/MIN (>60); Globulin 3.7 g/dL (1.3-3.2); Glucose 91 mg/dl (74-100); Potassium 3.7 mmoL/L (3.5-5.1); Sodium 137 mmol/L (136-145); Total Protein,Serum 6.2 g/dl (6.3-8.2)
[2024-11-06 09:06] LABS: Ferritin 93.1 ng/ml (17.9-464)
--- NOTE | 2024-11-06 09:28 | PC.NURSE ---
0906-pt had labs drawn; based on md order pt will not need therapeutic phlebotomy today his ferritin is 93.
== END 2024-11-06 09:27 | disposition home or self-care (01) ==
PROVIDERS: PCP Internal Medicine; Visit Provider Internal Medicine Gastroenterology
DX: K72.90 Hepatic failure, unspecified without coma (principal)
CPT/HCPCS: 36415; 80053; 82728; 85027; 85610; 85730

== ENCOUNTER 2024-12-04 07:53 | Outpatient (CLI) | payer BC, SELFPAY ==
[2024-12-04 08:11] VITALS: BMI 30.4
--- NOTE | 2024-12-04 08:16 | PC.NURSE ---
0816-collected labs via venipuncture stick in right ac with butterfly needle;pt to wait on the results if hgb>11 and ferritin>100
[2024-12-04 08:28] LABS: Hematocrit 33.8 % (42.0-52.0); Hemoglobin 11.1 g/dL (14.1-18.0)
[2024-12-04 09:19] LABS: Ferritin 74.7 ng/ml (17.9-464)
--- NOTE | 2024-12-04 09:31 | PC.NURSE ---
0931-pt to d/c home no therapeutic phlebotomy today;ferritin is 74
== END 2024-12-04 09:31 | disposition home or self-care (01) ==
LOC: INF 07:55
PROVIDERS: PCP Internal Medicine; Visit Provider Nurse Practitioner
DX: K72.90 Hepatic failure, unspecified without coma (principal)
CPT/HCPCS: 36415; 82728; 85014; 85018

== ENCOUNTER 2025-01-01 07:57 | Outpatient (CLI) | payer BC, SELFPAY ==
[2025-01-01 08:07] VITALS: BMI 30.4
[2025-01-01 08:26] LABS: Basophils % 0.9 % (0.1-2.0); Eosinophils # 0.2 K/mm3 (0.0-0.4); Eosinophils % 4.8 % (0.1-12.0); Hematocrit 36.8 % (42.0-52.0); Hemoglobin 12.3 g/dL (14.1-18.0); Lymphocytes # 1.3 K/mm3 (0.7-4.5); Lymphocytes % 38.7 % (10-50); Mean Corpuscular HGB Conc 33.4 g/dL (31.8-35.4); Mean Corpuscular Hemoglobin 33.2 pg (27.0-31.2); Mean Corpuscular Volume 99.2 fl (80-94); Mean Platelet Volume 9.8 fl (7.4-10.4); Monocytes # 0.3 K/mm3 (0.1-1.0); Monocytes % 9.7 % (1.7-9.3); Neutrophils # 1.5 K/mm3 (1.8-7.8); Neutrophils % 44.7 % (37.0-80.0); Platelet Count 56 K/mm3 (142-424); Red Blood Count 3.71 M/mm3 (4.60-6.20); Red Cell Distribution Width 17.7 % (11.5-17.5); White Blood Count 3.3 K/mm3 (4.8-10.8)
[2025-01-01 09:01] LABS: Ferritin 109 ng/ml (17.9-464)
--- NOTE | 2025-01-01 09:37 | PC.NURSE ---
0807 CBC, ferritin labs collected via venipuncture to R AC x1 stick with butterfly needle. Patient here for possible therapeutic phlebotomy based on pending lab results.
--- NOTE | 2025-01-01 09:41 | PC.NURSE ---
0940 Ferritin 109, Patient does not need therapeutic phelbotomy today. Next appointment in 4 weeks per MD order.
== END 2025-01-01 09:40 | disposition home or self-care (01) ==
LOC: INF 07:58
PROVIDERS: PCP Internal Medicine; Visit Provider Nurse Practitioner
DX: K72.90 Hepatic failure, unspecified without coma (principal)
CPT/HCPCS: 36415; 82728; 85025

== ENCOUNTER 2025-01-09 06:53 | Outpatient (CLI) | payer BC, SELFPAY ==
[2025-01-09 07:37] LABS: Hematocrit 35.5 % (42.0-52.0); Mean Corpuscular HGB Conc 33.8 g/dL (31.8-35.4); Mean Corpuscular Volume 97.5 fl (80-94); Platelet Count 65 K/mm3 (142-424); Red Blood Count 3.64 M/mm3 (4.60-6.20); Red Cell Distribution Width 17.9 % (11.5-17.5); White Blood Count 3.4 K/mm3 (4.8-10.8)
[2025-01-09 07:56] LABS: Activated Partial Thrombo Time 31.9 seconds (22.5-28.5); INR 1.59 (0.9-1.1); Prothrombin Time 16.7 seconds (9.2-12.1)
[2025-01-09 08:59] LABS: Chloride 110 mmol/L (98-107)
[2025-01-09 09:00] LABS: Albumin Level 2.4 g/dl (3.5-5.0); Sodium 139 mmol/L (136-145)
[2025-01-09 09:02] LABS: Blood Urea Nitrogen 12 mg/dl (9-20); Estimated Glomerular Filt Rate 98 ml/min (>60); GFR (African American) 118 ML/MIN (>60)
[2025-01-09 09:03] LABS: Alanine Aminotransferase 52 U/L (12-78); Albumin/Globulin Ratio 0.6 (1.1-1.8); Alkaline Phosphatase 257 U/L (38-126); Aspartate Amino Transferase 65 U/L (17-59); Calcium 7.8 mg/dl (8.4-10.2); Carbon Dioxide 26 mmol/L (22.0-30.0); Globulin 3.7 g/dL (1.3-3.2); Glucose 83 mg/dl (74-100); Total Protein,Serum 6.1 g/dl (6.3-8.2)
== END 2025-01-09 23:59 | disposition home or self-care (01) ==
LOC: LAB 06:54
PROVIDERS: PCP Internal Medicine; Visit Provider Internal Medicine Gastroenterology
DX: K72.90 Hepatic failure, unspecified without coma (principal)
CPT/HCPCS: 36415; 80053; 85027; 85610; 85730

== ENCOUNTER 2025-01-29 07:47 | Outpatient (CLI) | payer BC, SELFPAY ==
[2025-01-29 08:09] VITALS: BMI 30.4
[2025-01-29 08:15] LABS: Basophils % 0.9 % (0.1-2.0); Eosinophils # 0.2 K/mm3 (0.0-0.4); Hematocrit 36.1 % (42.0-52.0); Hemoglobin 12.2 g/dL (14.1-18.0); Lymphocytes # 1.5 K/mm3 (0.7-4.5); Lymphocytes % 33.2 % (10-50); Mean Corpuscular HGB Conc 33.8 g/dL (31.8-35.4); Mean Corpuscular Hemoglobin 33.2 pg (27.0-31.2); Mean Corpuscular Volume 98.4 fl (80-94); Mean Platelet Volume 11.1 fl (7.4-10.4); Monocytes # 0.5 K/mm3 (0.1-1.0); Monocytes % 11.6 % (1.7-9.3); Neutrophils # 2.3 K/mm3 (1.8-7.8); Neutrophils % 48.9 % (37.0-80.0); Platelet Count 54 K/mm3 (142-424); Red Blood Count 3.67 M/mm3 (4.60-6.20); White Blood Count 4.6 K/mm3 (4.8-10.8)
--- NOTE | 2025-01-29 08:52 | PC.NURSE ---
0808 CBC/ferritin labs obtained per order via venipuncture to R AC x1 stick with butterfly needle.Patient to receive possible therapeutic phlebotomy based on pending lab results.
[2025-01-29 09:02] LABS: Ferritin 97.5 ng/ml (17.9-464)
--- NOTE | 2025-01-29 09:45 | PC.NURSE ---
0945-pt d/c home ferritin 97 pt does not need phlebotomy and will return in 1 month
== END 2025-01-29 09:45 | disposition home or self-care (01) ==
LOC: INF 07:48
PROVIDERS: PCP Internal Medicine; Visit Provider Nurse Practitioner
DX: R78.9 Finding of unspecified substance, not normally found in blood (principal); E83.19 Other disorders of iron metabolism
CPT/HCPCS: 36415; 82728; 85025

== ENCOUNTER 2025-02-05 07:08 | Outpatient (CLI) | payer BC, SELFPAY ==
[2025-02-05 08:58] LABS: Basophils % 0.9 % (0.1-2.0); Eosinophils # 0.3 K/mm3 (0.0-0.4); Eosinophils % 6.5 % (0.1-12.0); Hemoglobin 12.4 g/dL (14.1-18.0); Lymphocytes # 1.6 K/mm3 (0.7-4.5); Lymphocytes % 33.5 % (10-50); Mean Corpuscular HGB Conc 34.4 g/dL (31.8-35.4); Mean Corpuscular Hemoglobin 34.6 pg (27.0-31.2); Mean Corpuscular Volume 100.6 fl (80-94); Mean Platelet Volume 10.9 fl (7.4-10.4); Monocytes # 0.6 K/mm3 (0.1-1.0); Monocytes % 12.5 % (1.7-9.3); Neutrophils # 2.2 K/mm3 (1.8-7.8); Neutrophils % 46.4 % (37.0-80.0); Platelet Count 53 K/mm3 (142-424); Red Blood Count 3.58 M/mm3 (4.60-6.20); Red Cell Distribution Width 16.7 % (11.5-17.5); White Blood Count 4.7 K/mm3 (4.8-10.8)
[2025-02-05 09:12] LABS: Activated Partial Thrombo Time 36.6 seconds (22.8-30.6); INR 1.54 (0.9-1.1); Prothrombin Time 16.5 seconds (10.1-12.5)
[2025-02-05 09:28] LABS: Alanine Aminotransferase 45 U/L (12-78); Albumin Level 2.3 g/dl (3.5-5.0); Anion Gap 5.9 mEq/L (5-15); Aspartate Amino Transferase 57 U/L (17-59); Bilirubin,Total 5.1 mg/dl (0.2-1.3); Blood Urea Nitrogen 9 mg/dl (9-20); Calcium 8.6 mg/dl (8.4-10.2); Carbon Dioxide 25 mmol/L (22.0-30.0); Chloride 108 mmol/L (98-107); Estimated Glomerular Filt Rate 114 ml/min (>60); GFR (African American) 137 ML/MIN (>60); Glucose 73 mg/dl (74-100); Potassium 3.9 mmoL/L (3.5-5.1); Sodium 135 mmol/L (136-145); Total Protein,Serum 6.2 g/dl (6.3-8.2)
[2025-02-05 09:29] LABS: Albumin/Globulin Ratio 0.6 (1.1-1.8); Alkaline Phosphatase 179 U/L (38-126); Globulin 3.9 g/dL (1.3-3.2)
== END 2025-02-05 23:59 | disposition home or self-care (01) ==
LOC: LAB 07:09
PROVIDERS: PCP Internal Medicine; Visit Provider Internal Medicine Gastroenterology
DX: K72.90 Hepatic failure, unspecified without coma (principal)
CPT/HCPCS: 36415; 80053; 85025; 85610; 85730

== ENCOUNTER 2025-02-21 07:24 | Outpatient (CLI) | payer BC, SELFPAY ==
[2025-02-21 08:50] LABS: 25-OH Vitamin D, Total 69.9 ng/mL (30-100)
[2025-02-21 11:53] LABS: Albumin Level 2.1 g/dl (3.5-5.0); Blood Urea Nitrogen 8 mg/dl (9-20); Carbon Dioxide 26 mmol/L (22.0-30.0); Chloride 107 mmol/L (98-107); Estimated Glomerular Filt Rate 114 ml/min (>60); GFR (African American) 137 ML/MIN (>60); Glucose 98 mg/dl (74-100); Sodium 136 mmol/L (136-145)
[2025-02-22 16:47] LABS: Alkaline Phosphatase 228 IU/L (44-121); Bone Fraction: 25 % (12-68); Intestinal Frac.: 44 % (0-18); Liver Fraction: 31 % (13-88)
[2025-02-24 04:26] LABS: Tandem-R Ostase 39.1 ug/L (7.5-25.4)
[2025-03-04 10:08] LABS: Serial Monitoring PDF SCANNED IMAGE
== END 2025-02-21 23:59 | disposition home or self-care (01) ==
LOC: LAB 07:28
PROVIDERS: PCP Family Medicine; Visit Provider Internal Medicine
DX: M81.8 Other osteoporosis without current pathological fracture (principal)
CPT/HCPCS: 36415; 80069; 82306; 84075; 84080

== ENCOUNTER 2025-02-26 09:10 | Outpatient (CLI) | payer BC, SELFPAY ==
[2025-02-26 09:13] VITALS: BMI 30.4
--- NOTE | 2025-02-26 09:18 | PC.NURSE ---
0918-collected labs via venipuncture stick in left ac with butterfly needle pt to wait on labs for possible therapeutic phlebotomy if ferritin >100
[2025-02-26 09:23] LABS: Hematocrit 37.2 % (42.0-52.0); Hemoglobin 12.7 g/dL (14.1-18.0)
[2025-02-26 10:14] LABS: Ferritin 78.1 ng/ml (17.9-464)
--- NOTE | 2025-02-26 10:23 | PC.NURSE ---
1023-pt d/c home ferritin 78.1 pt does not need therapeutic phlebotomy.
== END 2025-02-26 10:23 | disposition home or self-care (01) ==
LOC: INF 09:12
PROVIDERS: Visit Provider Internal Medicine
DX: R79.89 Other specified abnormal findings of blood chemistry (principal); E83.19 Other disorders of iron metabolism
CPT/HCPCS: 36415; 82728; 85014; 85018

== ENCOUNTER 2025-03-05 06:49 | Outpatient (CLI) | payer BC, SELFPAY ==
[2025-03-05 07:23] LABS: Hematocrit 34.1 % (42.0-52.0); Hemoglobin 11.8 g/dL (14.1-18.0); Mean Corpuscular HGB Conc 34.6 g/dL (31.8-35.4); Mean Corpuscular Hemoglobin 34.8 pg (27.0-31.2); Mean Corpuscular Volume 100.6 fl (80-94); Nucleated Red Blood Cells # 0 10^3/uL; Nucleated Red Blood Cells % 0 %; Platelet Count 58 K/mm3 (142-424); Red Blood Count 3.39 M/mm3 (4.60-6.20); Red Cell Distribution Width 15.9 % (11.5-17.5); Red Cell Distribution Width-SD 58.4 fL; White Blood Count 4.7 K/mm3 (4.8-10.8)
[2025-03-05 07:40] LABS: INR 1.66 (0.9-1.1); Prothrombin Time 17.7 seconds (10.1-12.5)
[2025-03-05 09:11] LABS: Alanine Aminotransferase 40 U/L (12-78); Albumin Level 1.9 g/dl (3.5-5.0); Albumin/Globulin Ratio 0.5 (1.1-1.8); Alkaline Phosphatase 239 U/L (38-126); Anion Gap 7.7 mEq/L (5-15); Aspartate Amino Transferase 56 U/L (17-59); Bilirubin,Total 3.8 mg/dl (0.2-1.3); Blood Urea Nitrogen 10 mg/dl (9-20); Calcium 7.5 mg/dl (8.4-10.2); Carbon Dioxide 23 mmol/L (22.0-30.0); Chloride 111 mmol/L (98-107); Estimated Glomerular Filt Rate 114 ml/min (>60); GFR (African American) 137 ML/MIN (>60); Globulin 4.1 g/dL (1.3-3.2); Glucose 92 mg/dl (74-100); Potassium 3.7 mmoL/L (3.5-5.1); Sodium 138 mmol/L (136-145)
== END 2025-03-05 23:59 | disposition home or self-care (01) ==
LOC: LAB 06:53
PROVIDERS: PCP Family Medicine; Visit Provider Internal Medicine Gastroenterology
DX: K72.90 Hepatic failure, unspecified without coma (principal)
CPT/HCPCS: 36415; 80053; 85027; 85610

== ENCOUNTER 2025-03-26 08:07 | Outpatient (CLI) | payer BC, SELFPAY ==
--- NOTE | 2025-03-26 08:10 | PC.NURSE ---
[id number]-lnathaliern collected labs via venipuncture stick with butterfly needle in right ac to wait on labs; if ferritin <100 pt does not need therapeutic phlebotomy.
[2025-03-26 08:59] VITALS: BMI 26.6
[2025-03-26 09:12] LABS: Hematocrit 34.1 % (42.0-52.0); Hemoglobin 11.7 g/dL (14.1-18.0)
[2025-03-26 11:20] LABS: Ferritin 77.9 ng/ml (17.9-464)
== END 2025-03-26 11:31 | disposition home or self-care (01) ==
LOC: INF 08:08
PROVIDERS: PCP Family Medicine; Visit Provider Internal Medicine
DX: K72.90 Hepatic failure, unspecified without coma (principal)
CPT/HCPCS: 36415; 82728; 85014; 85018

== ENCOUNTER 2025-04-02 07:04 | Outpatient (CLI) | payer BC, SELFPAY ==
[2025-04-02 07:27] LABS: Hematocrit 35.5 % (42.0-52.0); Hemoglobin 12.2 g/dL (14.1-18.0); Mean Corpuscular HGB Conc 34.4 g/dL (31.8-35.4); Mean Corpuscular Volume 101.7 fl (80-94); Nucleated Red Blood Cells # 0 10^3/uL; Nucleated Red Blood Cells % 0 %; Platelet Count 67 K/mm3 (142-424); Red Blood Count 3.49 M/mm3 (4.60-6.20); Red Cell Distribution Width 15.4 % (11.5-17.5); Red Cell Distribution Width-SD 57.6 fL; White Blood Count 5.3 K/mm3 (4.8-10.8)
[2025-04-02 07:35] LABS: INR 1.55 (0.9-1.1); Prothrombin Time 16.7 seconds (10.1-12.5)
[2025-04-02 07:42] LABS: Activated Partial Thrombo Time 38.6 seconds (22.8-30.6)
[2025-04-02 08:15] LABS: Albumin Level 2.1 g/dl (3.5-5.0); Chloride 109 mmol/L (98-107)
[2025-04-02 08:16] LABS: Potassium 3.6 mmoL/L (3.5-5.1); Sodium 136 mmol/L (136-145)
[2025-04-02 08:18] LABS: Alanine Aminotransferase 32 U/L (12-78); Alkaline Phosphatase 197 U/L (38-126); Anion Gap 3.6 mEq/L (5-15); Aspartate Amino Transferase 47 U/L (17-59); Bilirubin,Total 4.2 mg/dl (0.2-1.3); Blood Urea Nitrogen 10 mg/dl (9-20); Carbon Dioxide 27 mmol/L (22.0-30.0); Estimated Glomerular Filt Rate 97 ml/min (>60); GFR (African American) 118 ML/MIN (>60)
[2025-04-02 08:19] LABS: Albumin/Globulin Ratio 0.5 (1.1-1.8); Calcium 7.4 mg/dl (8.4-10.2); Glucose 101 mg/dl (74-100); Total Protein,Serum 6.1 g/dl (6.3-8.2)
== END 2025-04-02 23:59 | disposition home or self-care (01) ==
PROVIDERS: PCP Family Medicine; Visit Provider Internal Medicine Gastroenterology
DX: K72.90 Hepatic failure, unspecified without coma (principal)
CPT/HCPCS: 36415; 80053; 85027; 85610; 85730

== ENCOUNTER 2025-04-23 08:25 | Outpatient (CLI) | payer BC, SELFPAY ==
--- OUTSIDE RECORDS SUMMARY | 2025-03-06 16:00 | XMS_ITS | Encounter Summary ---
Author Organization Healthcare Address [address] [place] [address] Care Team Providers Care Justice Court Deputy Clerk Name Role Phone Urban Brantley Primary Care Provider [phone] HernándezRuma osborn Freddie SOFT SUGAR CUTTER Unavailable [phone] Reason for Visit * Reason Comments Follow-up Encounter Details Date Type Department Care Team ([facility] st Contact Info) Description 03/06/2025 4:00 PM EDT Office Visit [facility] [address], [address] [place] [address] Moustapha Katz MD [address] [place] [address] Other osteoporosis without current pathological [...] often do you attend chur ch or church services? More than 4 times per year 02/19/2025 Do you belong to any clubs o r organizations such as uatsdin groups, unions, fraternal or athletic groups, or [...] Recorded Patient Health Questionnaire-2 Score 0 03/14/2025 [facility] - Occupational Stress [...] any time in the past 12 m [facility], were you homeless or living in a residential (including now)? No 02/19/2025 Utilities Answer Date Recorded In the past 12 months has th e [employer], gas, oil, or water company threatened to [...] Patient confirms they are physically located in [place]? Yes If the patient is not physically located in [place], the provider has confirmed with [facility] thatthe provider is authorized to provide services in patient's stated location? N/A Provider Location: [facility] facility Audio and video or audio only? [...] XRT, renal stones, dental issues/scheduled dental procedures, jail corticosteroid; No thyroid/parathyroid/kidney; No RA/organ transplant/GI disease [...] GERD Gout Labs show normal kidney function, abbs Ca/P, PTH, btm, neg SPEP Marked vit [...] intake of Ca and take vit D 3329-5219 units daily, he has also been prescribed [...] diagnostic impressions, importance of compliance with treatment, supervisor intermediates nature of condition, and need for continued [...] should this exam be performed?: [facility] ([facility]) Are you able to bear weight on your lower extremities?: Yes Vitamin D 25 Hydroxy Please draw labs with transplant appointment Standing Status: Future Expected Date: 06/13/2025 Expiration Date: 09/17/2026 Release to patient in [facility]: Immediate [1] Osteocalcin by ECIA Please draw labs with transplant appointment Standing Status: Future Expected Date: 06/13/2025 Expiration Date: 09/17/2026 [facility] [1] C-Telopeptide Please draw labs with transplant appointment Standing Status: Future Expected Date: 06/13/2025 Expiration Date: 09/17/2026 Release to patient in [facility]: Immediate [1] Renal Function Panel, Plasma Please draw labs with transplant appointment Standing Status: Future Expected Date: 06/13/2025 Expiration Date: 09/17/2026 Release to patient in [facility]: Immediate [1] Bone Specific Alkaline Phosphatase Please draw labs with transplant appointment Standing Status: Future Expected Date: 06/13/2025 Expiration Date: 09/17/2026 Release to patient in [facility]: Immediate Vitamin D 1,25 Dihydroxy Please draw labs with transplant appointment Standing Status: Future Expected Date: 06/13/2025 Expiration Date: 09/17/2026 [facility] Immediate Electronically Signed by: Moustapha Katz MD - 03/17/2025 - 12:55 PM documented in this encounter Plan of Treatment Upcoming Encounters Date Type Department Care Team (Late st Contact Info) Description 06/13/2025 6:45 AM EDT Clinical Support [facility] [address] [facility] [address] [place] [address] 06/13/2025 8:00 AM EDT Office Visit [facility] [address] [place] [address] Portia Maguire MD [address] [facility] [address] [address] [place] [address] 06/13/2025 11:30 AM EDT Appointment Cardiac Imaging [address] [place] [address] 06/13/2025 2:00 PM EDT Appointment [facility] [address] [place] [address] 06/26/2025 3:20 PM EDT Appointment [facility] Bone & Mineral Metabolism [address], [address] [place] [address] 06/26/2025 3:40 PM EDT Office Visit [facility] Mineral Metabolism [address], [address] [place] [address] Moustapha Katz MD [address] [place] [address] 10/03/2025 12:45 PM EST Office Visit Medical Office Building Urology [address], [address] [place] [address] Suhail Brock MD [address] [facility] [address] [place] [phone] Scheduled Orders Name Type Priority Associated Diagnoses [...] documented as of this encounter Care Teams Justice Court Deputy Clerk Relationship Specialty Start Date End Date Urban Brantley DO [address] [place] [id number] PCP - General 07/30/23 03/13/25 Ruma Hernández APRN [address] [place] [id number] Referring Physician Gastroenterology 07/30/23 documented as of this encounter
--- OUTSIDE RECORDS SUMMARY | 2025-03-14 06:59 | XMS_ITS | Encounter Summary ---
Author Organization Healthcare Address [address] [place] [address] Care Team Providers Care Plastic Surgery Assistant Name Role Phone Ruma Hernández ARMORED CAR MESSENGER Unavailable [phone] Chris Medel MD Primary Care Provider [phone] Encounter Details Date Type Department Care Team (Latest Contact Info) Description 03/14/2025 6:59 AM EDT - 03/14/2025 9:15 AM EDT [facility] [address], [address] [place] [phone] Nephrolithiasis Discharge Disposition: Home or Self Care Social History Tobacco Use Types Packs/Day Years Used Date Smoking Tobacco: Never Smokeless Tobacco: Former Chew Quit: 11/15/2019 Comments:not sure of exact d ate quit chewing but several years ago Alcohol [...] week 02/19/2025 How often do you attend [facility] or yazidi services? More than 4 times per year 02/19/2025 Do you belong to any clubs o r organizations such as amish groups, unions, fraternal or athletic groups, or [...] Recorded Patient Health Questionnaire-2 Score 0 03/14/2025 [facility] - Occupational [...] any time in the past 12 m [facility], were you homeless or living in a skilled nursing (including now)? No 02/19/2025 Utilities Answer Date Recorded In the past 12 months has th e electric, gas, oil, or water company threatened to shut off services in your home? No 02/19/2025 PHQ-2A Answer Date Recorded Patient Health Questionnaire-2 Score 0 10/05/2023 Sex and Gender Information Value Date Recorded Sex Assigned at Not on file Legal Sex Male 8:57 PM EDT Gender Identity Not on file Sexual Orientation Not on file documented as of this encounter Functional Status * Over the [...] Audie Atkinson documented as of this encounter Medications at Time of Discharge Calcium-Vitamin D (CALTRATE 600 PLUS-VIT D PO) Take 600 mg by mouth 2 times a day. carvedilol (Coreg) 3.125 MG tabletIndications :Cirrhosis of liver with ascites, unspecified hepatic cirrhosis type (CMS/HCC) Take 1 tablet (3.125 mg) by mouth 2 (two) times a day with meals. 60 tablet 11 09/13/2024 ergocalciferol (Vitamin D-2) 1.25 MG (26585 UT) capsule Take 1 capsule by mouth 1 (one) time per week. 12 capsule 2 03/08/2025 furosemide (Lasix) 20 MG tabletIndications :Bilateral leg edema,Cirrhosis of liver with ascites, unspecified hepatic cirrhosis type (CMS/HCC),Other ascites Take 2 tablets by mouth daily. 180 tablet 3 03/14/2025 6 omeprazole (PriLOSEC) [address] capsuleIndication s:Cirrhosis of liver with ascites, unspecified hepatic cirrhosis type (CMS/HCC) Take 2 capsules by mouth daily. 180 capsule 3 03/14/2025 6 spironolactone (Aldactone) 50 MG tabletIndications :Bilateral leg edema,Cirrhosis of liver with ascites, unspecified hepatic cirrhosis type (CMS/HCC),Other ascites Take 2 tablets by mouth daily. 180 each 3 03/14/2025 6 Xifaxan 550 MG tablet 01/15/2025 documented as of this encounter Plan of Treatment Upcoming Encounters Date Type Department Care Team (Late st Contact Info) Description 06/13/2025 6:45 AM EDT Clinical Support [facility] Transplant Center [address] [place] [address] 06/13/2025 8:00 AM EDT Office Visit [facility] Transplant [place] [address] [place] [address] Portia Maguire MD [address] [place] [address] 06/13/2025 11:30 AM EDT Appointment Cardiac Imaging [address] [place] [address] 06/13/2025 2:00 PM EDT Appointment [facility] [address] [place] [address] 06/26/2025 3:20 PM EDT Appointment [facility] Bone & Mineral Metabolism [address], [address] [place] [address] 06/26/2025 3:40 PM EDT Office Visit [facility] Bone & Mineral Metabolism [address], [address] [place] [address] Moustapha Katz MD [address] [place] [address] 10/03/2025 12:45 PM EST Office Visit Medical Office Building Urology [address], [address] [place] [address] Suhail Brock MD [address] [place] [address] documented as of this encounter Procedures Procedure Name Priority Date/Time Associated Diagnosis Comments XR ABDOMEN 1 VIEW Routine 03/14/2025 7:1 2 AM EDT Nephrolithiasis documented in this encounter Results * XR Abdomen 1 View (03/14/2025 7:12 AM EDT) Anatomical Region Laterality Modality Body Digital Radiogra phy Impressions 03/14/2025 8:40 AM EDT Several moderate-sized left renal stones, grossly unchanged. CRITICAL RESULT: No. COMMUNICATION: Per this written report. Drafted by Celio Wren MD on 03/14/2025 8:33 AM Final report signed by Celio Wren MD on 03/14/2025 8:40 AM Narrative 03/14/2025 8:40 AM EDT CLINICAL INDICATION: nephrolithiasis TECHNIQUE: XR ABDOMEN 1 VIEW COMPARISON: Abdomen image 10/04/2024. CT abdomen 04/21/2024. Outside CT 12/30/2023. FINDINGS: There are several moderate-sized left renal stones. Appearance is similar to CT 04/21/2024. No right renal calculi visualized. No convincing ureteral or bladder calculi. In the pelvis, there are prostate calcifications and vascular calcifications. Calcifications in the right upper quadrant suggest cholelithiasis. Nonobstructive bowel gas pattern. No acute bony findings. Clear lung bases. Procedure Note Celio Wren MD - 03/14/2025 CLINICAL INDICATION: nephrolithiasis TECHNIQUE: XR ABDOMEN 1 VIEW COMPARISON: Abdomen image 10/04/2024. CT abdomen 04/21/2024. Outside CT 12/30/2023. FINDINGS: There are several moderate-sized left renal stones. Appearance is similarto CT 04/21/2024. No right renal calculi visualized. No convincing ureteralor bladder calculi. In the pelvis, there are prostate calcifications andvascular calcifications. Calcifications in the right upper quadrant suggest cholelithiasis. Nonobstructive bowel gas pattern. No acute bony findings. Clear lung bases. IMPRESSION: Several moderate-sized left renal stones, grossly unchanged. CRITICAL RESULT: No. COMMUNICATION: Per this written report. Drafted by Celio Wren MD on 03/14/2025 8:33 AM Final report signed by Celio Wren MD on 03/14/2025 8:40 AM Suhail Brock MD IMG XR PROCEDURES Final Result documented in this encounter Visit Diagnoses Diagnosis Nephrolithiasis Calculus of kidney documented in this encounter Additional Health Concerns Assessment Noted Time PHQ-9 Depression Total Score: 0 10/04/20 24 12:32 PM EST A fall risk assessment has been complete d for the patient 03/14/2025 7:31 AM EDT A Body Mass Index follow-up plan has been documented for the patient 03/14/2025 10:10 AM EDT documented as of this encounter Care Teams Plastic Surgery Assistant Relationship Specialty Start Date End Date Chris Medel MD [address] [place] [address] PCP - General 03/14/25 Ruma Hernández APRN [address] [address] Referring Physician Gastroenterology 07/30/23 documented as of this encounter
--- OUTSIDE RECORDS SUMMARY | 2025-03-14 08:00 | XMS_ITS | Encounter Summary ---
Author Organization Healthcare Address [address] [place] [address] Care Team Providers Care Senior Validation Engineer Name Role Phone Ruma Hernández CLASSROOM TEACHER Unavailable [phone] Chris Medel MD Primary Care Provider [phone] Encounter Details Date Type Department Care Team (Late st Contact Info) Description 03/14/2025 8:00 AM EDT Office Visit [facility] [address] [place] [phone] Zarina Moore, PA [address] [place] [address] Alcoholic cirrhosis of liver with [...] How often do you attend chur or episcopal services? More than 4 times per year 02/19/2025 Do you belong to any clubs o r organizations such as anglican groups, unions, fraternal or athletic groups, or [...] Recorded Patient Health Questionnaire-2 Score 0 03/14/2025 [facility] [place] of Occupat ional Health - Occupational Stress [...] any time in the past 12 m [facility], were you homeless or living in a senior care (including now)? No 02/19/2025 Utilities Answer Date [...] 5 months --> Ordered from here - [facility] Last alcohol 02/2023 Had iron overload, heterozygous [...] Description 06/13/2025 6:45 AM EDT Clinical Support [facility] [address] [place] [address] 06/13/2025 8:00 AM EDT Office Visit [facility] [address] [place] [address] Portia Maguire MD [address] [place] [address] 06/13/2025 11:30 AM EDT Appointment Cardiac Imaging [address] [place] [address] 06/13/2025 2:00 PM EDT Appointment [facility] [address] [place] [address] 06/26/2025 3:20 PM EDT Appointment [facility] [address], [address] [place] [address] 06/26/2025 3:40 PM EDT Office Visit [facility] [address], [address] [place] [address] Moustapha Katz MD [address] [place] [address] 10/03/2025 12:45 PM EST Office Visit Medical Office Building Urology [address], [address] [place] [address] Suhail Brock MD [address] [facility] [address] [place] [address] documented as of this encounter [...] documented as of this encounter Care Teams Senior Validation Engineer Relationship Specialty Start Date End Date Chris Medel MD [address] [place] [address] PCP - General 03/14/25 Ruma Hernández APRN [address] [facility] [address] [place], [place] [id number] Referring Physician Gastroenterology 07/30/23 documented as of this encounter
--- OUTSIDE RECORDS SUMMARY | 2025-03-14 09:16 | XMS_ITS | Encounter Summary ---
Author Organization Healthcare Address [address] [place] [address] Care Team Providers Care Head Sawyer Automatic Name Role Phone Ruma Hernández DIVER PUMPER Unavailable [phone] Chris Medel MD Primary Care Provider [phone] Reason for Referral * Imaging (Routine) - Closed Specialty Diagnoses / Procedures Referred By Gianna reyes Referred To Contact Radiology Diagnoses Pre-liver transplant, listed Procedures CT Liver Portia Maguire MD [address] [address] Phone: tel: fax: Referral ID Status Reason Start Date Expiration Date Visits Re quested Visits Authorized [id number] Closed 12/19/2024 06/20/2026 1 1 Reason for Visit * Imaging (Routine) - Closed Specialty Diagnoses / Procedures Referred By Gianna reyes Referred To Contact Radiology Diagnoses Pre-liver transplant, listed Procedures CT Liver Portia Maguire MD [address] [address] Phone: tel: fax: Referral ID Status Reason Start Date Expiration Date Visits Re quested Visits Authorized [id number] Closed 12/19/2024 06/20/2026 1 1 Encounter Details Date Type Department Care Team (Latest Contact Info) Description 03/14/2025 9:16 AM EDT - 03/14/2025 11:59 PM EDT Hospital Encounter [facility] Radiology [address] [place] [phone] Pre-liver transplant, listed Discharge Disposition: Home or [...] How often do you attend chur or synagogue services? More than 4 times per year 02/19/2025 Do you belong to any clubs o r organizations such as buddhism groups, unions, fraternal or athletic groups, or [...] Recorded Patient Health Questionnaire-2 Score 0 03/14/2025 [facility] of Occupat ional [facility] - Occupational Stress Questionnaire Answer Date Recorded [...] in the past [address] [facility], were you homeless or living in a [...] 09/13/2024 5 ergocalciferol (Vitamin D-2) 1.25 MG (30314 UT) capsule Take 1 capsule by mouth [...] Description 06/13/2025 6:45 AM EDT Clinical Support [facility] [place] [address] [facility] [address] [place] [address] 06/13/2025 8:00 AM EDT Office Visit [facility] [place] [address] [facility] [address] [place] [address] Portia Maguire MD [address] [facility] [address] [place] [address] 06/13/2025 11:30 AM EDT Appointment Cardiac Imaging [address] [place] [address] 06/13/2025 2:00 PM EDT Appointment [facility] [address] [place] [address] 06/26/2025 3:20 PM EDT Appointment [facility] Bone & Mineral Metabolism [address] [facility] [facility] [facility], [address] [place] [address] 06/26/2025 3:40 PM EDT Office Visit [facility] Bone & Mineral Metabolism [address] [facility] [address] [facility], [address] [place] [address] Moustapha Katz MD [address] [facility] [address] [place] [address] 10/03/2025 12:45 PM EST Office Visit Medical Office Building Urology [address] [facility] [facility], [address] [place] [address] Suhail Brock MD [address] [facility] [address] [place] [address] documented as of this encounter Procedures Procedure [...] are consistent with and integrated into the [place] [employer] for the Study of Liver Diseases [...] are consistent with and integrated into the [place] Associationfor the Study of Liver Diseases (AASLD) [...] documented as of this encounter Care Teams Head Sawyer Automatic Relationship Specialty Start Date End Date Chris Medel MD [address] [place] [address] PCP - General 03/14/25 Ruma Hernández APRN [address] [facility] [address] [place] [address] Referring Physician Gastroenterology 07/30/23 documented as of this encounter
--- OUTSIDE RECORDS SUMMARY | 2025-04-23 08:30 | XMS_ITS | Encounter Summary ---
Author Organization Healthcare Address [address] [place] [address] Care Team Providers Care Climate Change Risk Assessor Name Role Phone Ruma Hernández ABRASIVE MIXER Unavailable [phone] Chris Medel MD Primary Care Provider [phone] Encounter Details Date Type Department Care Team (Late st Contact Info) Description 03/30/2025 Results Follow-Up [facility] [address] [place] [address] Meaghan Le, RN HOSPITAL LIVER [id number] [id number] Social History Tobacco Use Types Packs/Day Years [...] week 02/19/2025 How often do you attend [facility] or hinduism services? More than 4 times per year 02/19/2025 Do you belong to any clubs o r organizations such as yarsanism groups, unions, fraternal or athletic groups, or [...] Questionnaire-2 Score 0 03/14/2025 [facility] of Occupat ional Health - Occupational [...] any time in the past 12 m [facility], were you homeless or living in a snf (including now)? No 02/19/2025 Utilities Answer Date [...] on file documented as of this encounter Miscellaneous Notes * Result Encounter Note - Meaghan Le RN - 03/30/2025 3:42 PM EDT Ferritin - I didn't order, but it was sent to us documented in this encounter Plan of Treatment Upcoming Encounters Date Type Department Care Team (Late st Contact Info) Description 06/13/2025 6:45 AM EDT Clinical Support [facility] [address] [place] [address] 06/13/2025 8:00 AM EDT Office Visit [facility] [address] [facility] [address] [place] [address] Portia Maguire MD [address] [facility] [address] [place] [address] 06/13/2025 11:30 AM EDT Appointment Cardiac Imaging [address] [place] [address] 06/13/2025 2:00 PM EDT Appointment [facility] [address] [place] [address] 06/26/2025 3:20 PM EDT Appointment [facility] Bone & Mineral Metabolism [address] [facility] [facility], [address] [place] [address] 06/26/2025 3:40 PM EDT Office Visit [facility] Bone & Mineral Metabolism [address] [facility], [address] [place] [address] Moustapha Katz MD [address] [facility] [address] [place] [address] 10/03/2025 12:45 PM EST Office Visit Medical Office Building Urology [address] [facility], [address] [place] [address] Suhail Brock MD [address] [facility] [address] [place] [address] documented as of this encounter Visit Diagnoses Not on filedocumented in this encounter Additional Health Concerns Assessment Noted Time PHQ-9 Depression Total Score: 0 10/04/20 24 12:32 PM EST A fall risk assessment has been complete d for the patient 03/14/2025 7:31 AM EDT A Body Mass Index follow-up plan has been documented for the patient 03/14/2025 10:10 AM EDT documented as of this encounter Care Teams Climate Change Risk Assessor Relationship Specialty Start Date End Date Chris Medel MD [address] [place], [place] [phone] PCP - General 03/14/25 Ruma Hernández APRN [address] [facility] [address] [place] [address] Referring Physician Gastroenterology 07/30/23 documented as of this encounter
--- OUTSIDE RECORDS SUMMARY | 2025-04-23 08:30 | XMS_ITS | Encounter Summary ---
Author Organization Healthcare Address [address] [place] [address] Care Team Providers Care Meat Processing Center Manager Name Role Phone Ruma Hernández LUMBER SCALER Unavailable [phone] Chris Medel MD Primary Care Provider [phone] Encounter Details Date Type Department Care Team (Latest Contact Info) Description 03/14/2025 Travel Social History Tobacco Use Types Packs/Day Years [...] often do you attend chur ch or rastafari services? More than 4 times per year 02/19/2025 Do you belong to any clubs o r organizations such as synagogue groups, unions, fraternal or athletic groups, or [...] Recorded Patient Health Questionnaire-2 Score 0 03/14/2025 [facility] Occupat ional Health - Occupational Stress [...] any time in the past 12 m [facility], were you homeless or living in a alf (including now)? No 02/19/2025 Utilities Answer Date [...] Audie Atkinson documented as of this encounter Plan of Treatment Upcoming Encounters Date Type Department Care Team (Late st Contact Info) Description 06/13/2025 6:45 AM EDT Clinical Support [facility] [place] [address] [place] [address] 06/13/2025 8:00 AM EDT Office Visit [facility] [place] [address] [place] [address] Portia Maguire MD [address] [facility] [address] [place] [address] 06/13/2025 11:30 AM EDT Appointment Cardiac Imaging [address] [place] [address] 06/13/2025 2:00 PM EDT Appointment [facility] Radiology [address] [place] [address] 06/26/2025 3:20 PM EDT Appointment Professional [facility] Bone [facility] Mineral Metabolism [address] [facility], [address] [place] [address] 06/26/2025 3:40 PM EDT Office Visit [facility] Bone & Mineral Metabolism [address] [facility], [address] [place] [address] Moustapha Katz MD [address] [facility] [address] [place] [address] 10/03/2025 12:45 PM EST Office Visit Medical Office Building Urology [address] [facility], [address] [place] [address] Suhail Brock MD [address] [facility] [address] [place] [address] documented as of this encounter [...] documented as of this encounter Care Teams Meat Processing Center Manager Relationship Specialty Start Date End Date Chris Medel MD [address] [place] [address] PCP - General 03/14/25 Ruma Hernández APRN [address] [place] [address] Referring Physician Gastroenterology 07/30/23 documented as of this encounter
--- OUTSIDE RECORDS SUMMARY | 2025-04-23 08:30 | XMS_ITS | Encounter Summary ---
Author Organization Healthcare Address [address] [place] [address] Care Team Providers Care Armored Car Guard And Driver Name Role Phone KaronUrban Primary Care Provider [phone] Ruma Hernández WALLPAPER PRINTER HELPER Unavailable [phone] Chris Medel MD Primary Care Provider [phone] Encounter Details Date Type Department Care Team (Late st Contact Info) Description 02/06/2025 Results Follow-Up [facility] [address] [facility] [address] [place] [address] Meaghan Le, RN [facility] LIVER [id number] [address] [id number] Social History Tobacco Use Types Packs/Day Years [...] How often do you attend chur or temple services? More than 4 times per year 02/19/2025 Do you belong to any clubs o r organizations such as lutheran groups, unions, fraternal or athletic groups, or [...] Recorded Patient Health Questionnaire-2 Score 0 03/14/2025 [facility] of Occupat ional Health - Occupational Stress [...] in the past 12 m [facility], were you homeless or living in a group home (including now)? No 02/19/2025 Utilities Answer Date Recorded In the past 12 months has th e [employer], gas, oil, or water company threatened to shut off services in your home? No 02/19/2025 PHQ-2A Answer Date Recorded Patient Health Questionnaire-2 Score 0 10/05/2023 Sex and Gender Information Value Date Recorded Sex Assigned at Not on file Legal Sex Male 8:57 PM EDT Gender Identity Not on file Sexual Orientation Not on file documented as of this encounter Functional Status * AUDIT-C Score Answer Date of Assessment Author 0 02/19/2025 10:06 AM Manohar Gomez * Question Answer Date of Assessment Author Q1: How often do you have a drink containing alcohol? Never 02/19/2025 10:06 AM Manohar Gomez Q2: How many drinks containing alcohol do you have on a typical day when you are drinking? Patient does not drink 02/19/2025 10:06 AM Manohar Gomez Q3: How often do you have six or more drinks on one occasion? Never 02/19/2025 10:06 AM EDT Manohar Johns * Over the past 2 weeks, how [...] 0 03/14/2025 7:31 AM EDT Audie Atkinson * Calculated C-SSRS Risk Score (Lifetime/Recent) Answer Date of Assessment Author No Risk Indicated 02/07/2025 3:17 PM EDT Karla Aranda RN * Question Answer Date of Assessment Author 1. Wish to be (Past 1 Month) No 025 3:17 PM EDT Karla Aranda RN 2. Non-Specific Active Suici alisson Thoughts (Past 1 Month) No 02/07/2025 3:17 PM EDT Ngozi Aranda RN 6. Suicidal Behavior (Lifetime) No 3:17 PM EDT Karla Aranda RN documented as of this encounter Miscellaneous Notes * Result Encounter Note - Portia Maguire MD - 02/07/2025 10:10 AM EDT Labs are stable MELD is 20 * Result Encounter Note - Meaghan Le RN - 02/06/2025 1:00 PM EDT Monthly labs documented in this encounter Plan of Treatment Upcoming Encounters Date Type Department Care Team (Late st Contact Info) Description 06/13/2025 6:45 AM EDT Clinical Support [facility] [place] [address] [place] [address] 06/13/2025 8:00 AM EDT Office Visit [facility] [address] [facility] [address] [place] [address] Portia Maguire MD [address] [facility] [address] [place] [address] 06/13/2025 11:30 AM EDT Appointment Cardiac Imaging [address] [place] [address] 06/13/2025 2:00 PM EDT Appointment [facility] Radiology [address] [place] [address] 06/26/2025 3:20 PM EDT Appointment [facility] Bone & Mineral Metabolism [address] [facility], [address] [place] [address] 06/26/2025 3:40 PM EDT Office Visit [facility] Bone & Mineral Metabolism [address] [facility], [address] [place] [address] Moustapha Katz MD [address] [facility] [address] [place] [address] 10/03/2025 12:45 PM EST Office Visit Medical Office Building Urology [address] [facility], [address] [place] [address] Suhail Brock MD [address] [facility] [address] [place] [address] documented as of this encounter Visit Diagnoses Not on filedocumented in this encounter Additional Health Concerns Assessment Noted Time PHQ-9 Depression Total Score: 0 10/04/20 24 12:32 PM EST A fall risk assessment has been complete d for the patient 12/26/2024 8:15 AM EST A Body Mass Index follow-up plan has been documented for the patient 12/26/2024 11:14 PM EST documented as of this encounter Care Teams Armored Car Guard And Driver Relationship Specialty Start Date End Date Urban Brantley DO [address] [place] [address] PCP - General 07/30/23 03/13/25 Chris Medel MD [address] [place] [address] PCP - General 03/14/25 Ruma Hernández APRN [address] [place] [address] Referring Physician Gastroenterology 07/30/23 documented as of this encounter
--- OUTSIDE RECORDS SUMMARY | 2025-04-23 08:30 | XMS_ITS | Encounter Summary ---
Author Organization Healthcare Address [address] [place] [address] Care Team Providers Care Firmware Software Verification Engineer Name Role Phone Urban Brantley Primary Care Provider [phone] HernándezRuma Freddie MACHINE REBUILDER Unavailable [phone] Encounter Details Date Type Department Care Team (Latest Contact Info) Description 03/05/2025 Travel Social History Tobacco Use Types Packs/Day [...] How often do you attend chur or protestant services? More than 4 times per year 02/19/2025 Do you belong to any clubs o r organizations such as anabaptist groups, unions, fraternal or athletic groups, or [...] Date Recorded Patient Health Questionnaire-2 Score 0 12/13/2024 [facility] of Occupat ional Health - [...] any time in the past 12 m [facility], were you homeless or living in a jail (including now)? No 02/19/2025 Utilities Answer Date [...] Description 06/13/2025 6:45 AM EDT Clinical Support [facility] [place] [address] [facility] [address] [place] [address] 06/13/2025 8:00 AM EDT Office Visit [facility] [place] [address] [place] [address] Portia Maguire MD [address] [place] [address] 06/13/2025 11:30 AM EDT Appointment Cardiac Imaging [address] [place] [address] 06/13/2025 2:00 PM EDT Appointment [facility] Radiology [address] [place] [address] 06/26/2025 3:20 PM EDT Appointment [facility] Bone & Mineral Metabolism [address] [facility], [address] [place] [address] 06/26/2025 3:40 PM EDT Office Visit [facility] Bone & Mineral Metabolism [address] [facility], [address] [place] [address] Moustapha Katz MD [address] [facility] [address] [place] [address] 10/03/2025 12:45 PM EST Office Visit Medical Office Building Urology [address] [facility], [address] [place] [address] Suhail Brock MD [address] [facility] [address] [place] [address] documented as of this encounter Visit Diagnoses Not on filedocumented in this encounter Additional Health Concerns Assessment Noted Time PHQ-9 Depression Total Score: 0 10/04/20 24 12:32 PM EST A fall risk assessment has been complete d for the patient 02/19/2025 10:06 AM EDT A Body Mass Index follow-up plan has been documented for the patient 02/20/2025 12:23 PM EDT documented as of this encounter Care Teams Firmware Software Verification Engineer Relationship Specialty Start Date End Date Urban Brantley DO [address] [place] [address] PCP - General 07/30/23 03/13/25 Ruma Hernández APRN [address] [facility] [address] [place], [place] [id number] Referring Physician Gastroenterology 07/30/23 documented as of this encounter
--- OUTSIDE RECORDS SUMMARY | 2025-04-23 08:30 | XMS_ITS | Encounter Summary ---
Author Organization Healthcare Address [address] [place] [address] Care Team Providers Care Leave Specialist Name Role Phone KaronUrban Yael CAMARA Primary Care Provider [phone] Ruma Hernández PLANNING FEEDER Unavailable Chris Medel MD Primary Care Provider [phone] Encounter Details Date Type Department Care Team (Late st Contact Info) Description 03/05/2025 Results Follow-Up [facility] [address] [facility] [address] [place] [address] Meaghan Le, RN [facility] LIVER [id number] [address] [id number] Social History Tobacco Use Types Packs/Day Years [...] How often do you attend chur or church services? More than 4 times per year 02/19/2025 Do you belong to any clubs o r organizations such as christianity groups, unions, fraternal or athletic groups, or [...] Recorded Patient Health Questionnaire-2 Score 0 12/13/2024 [facility] of Occupat ional Health - [...] any time in the past 12 m [facility], were you homeless or living in a alf (including now)? No 02/19/2025 Utilities Answer Date Recorded In the past 12 months has th e [employer], gas, oil, or water [employer] threatened to shut off services in your home? No 02/19/2025 PHQ-2A Answer Date Recorded Patient Health Questionnaire-2 Score 0 10/05/2023 Sex and Gender Information Value Date Recorded Sex Assigned at Not on file Legal Sex Male 8:57 PM EDT Gender Identity Not on file Sexual Orientation Not on file documented as of this encounter Miscellaneous Notes * Result Encounter Note - David Gonzalez MD - 03/06/2025 10:22 PM EDT Labs reviewed. MELD 20. No changes. * Result Encounter Note - Meaghan Le RN - 03/05/2025 4:19 PM EDT Monthly MELD labs documented in this encounter Plan of Treatment Upcoming Encounters Date Type Department Care Team (Late st Contact Info) Description 06/13/2025 6:45 AM EDT Clinical Support [facility] [place] [address] [facility] [address] [place] [address] 06/13/2025 8:00 AM EDT Office Visit [facility] [place] [address] [facility] [address] [place] [address] Portia Maguire MD [address] [facility] [address] [place] [address] 06/13/2025 11:30 AM EDT Appointment Cardiac Imaging [address] [place] [address] 06/13/2025 2:00 PM EDT Appointment [facility] Radiology [address] [place] [address] 06/26/2025 3:20 PM EDT Appointment Professional [facility] Bone & Mineral Metabolism [address] [facility], [address] [place] [address] 06/26/2025 3:40 PM EDT Office Visit [facility] Bone & Mineral Metabolism [address] [facility], [address] [place] [address] Moustapha Katz MD [address] [facility] [address] [place] [address] 10/03/2025 12:45 PM EST Office Visit Medical Office Building Urology [address] [facility], [address] [place] [address] Suhail Brock MD [address] [facility] [address] [place] [address] documented as of this encounter [...] documented as of this encounter Care Teams Leave Specialist Relationship Specialty Start Date End Date Urban Brantley DO [address] [place] [address] PCP - General 07/30/23 03/13/25 Chris Medel MD [address] [place] [address] PCP - General 03/14/25 Ruma Hernández APRN [address] [place] [address] Referring Physician Gastroenterology 07/30/23 documented as of this encounter
--- OUTSIDE RECORDS SUMMARY | 2025-04-23 08:31 | XMS_ITS | Data Portability ---
Author Organization [place] - [facility] - [facility] JULIANA Louie ADMIN Address [address] [place] [address] Assessment Encounter Date Assessment Date Assessment LastModified by Organization Details LastModified Time 2023 2023 Vijaya REINA Dear Vijaya, I wanted to let you know that I saw David natarajan in the off state your request he is a 63-year-old gentleman who has had a 3 to four-week history of a bulge in his left groin and fairly significant intermittent abdominal pain. The pain is generally associated with the onset of the knot in his left groin and this mass actually came about after a fairly strenuous day working in the yard. It does go away intermittently and you have identified an indirect left inguinal hernia and have asked me to evaluate him and make recommendations. NKDA MEDICATIONS: Documented by the patient and on the chart PAST MEDICAL HISTORY: Positive for high blood pressure negative for diabetes heart, disease, stroke or liver or kidney disease PAST SURGICAL HISTORY: Right inguinal hernia open FAMILY HISTORY: Negative for cancer diabetes heart disease high blood pressure SOCIAL HISTORY: Denies tobacco or alcohol use REVIEW OF SYSTEMS: General: no malaise, fever, no constitutional symptoms of malignancy Eyes: no blurred vision, no loss of vision no change in vision, no discharge Nose: No drainage, no bleeding, no obstruction Oropharynx: No sore throat, no change in voice, no difficulty swallowing Pulmonary: No shortness of breath, no dyspnea on exertion, no productive cough, no bleeding Cardiac: No chest pain, no palpitation, no racing heartbeat, no dyspnea when lying flat Abdominal: No abdominal pain, no nausea, no vomiting, no diarrhea : No dysuria, + hematuria, no lack of urine, no pain with urination Musculoskeletal: No joint pain, no back pain, no muscle pain, no claudication Integumentary: No rashes, no open sores, no open wounds Hematologic: No history of blood clots, no PEs, no history of free bleeding Endocrine: No cold intolerance, no heat intolerance, no polydipsia Neurologic: No loss of consciousness, no gait imbalance, no loss of function or sensation Remaining 14 point ROS noncontributory PHYSICAL EXAM: VS: Respirations 16 pulse 77 blood pressure 154/94 BMI is 30.2 General: Well-developed, alert orient x3. In no obvious distress. HEENT: Normal cephalic atraumatic extraocular muscles intact. No scleral icterus nasal passages are patent without discharge oropharynx is clear. Neck is soft and supple without lateral cervical adenopathy there is no visualized intraoral lesion. CHEST: No accessory muscle use lungs are clear to auscultation. Heart is regular rate and rhythm without murmur ABDOMEN: Soft, nontender nondistended, positive bowel sounds, no hepatosplenomegaly no masses. A reducible umbilical hernia is present : Grossly normal anatomy, no inguinal adenopathy . An obvious indirect left inguinal hernias present and a possible defect on the right is noticed EXT: Positive pulses no cyanosis clubbing or edema NEURO: Cranial nerves 2-12 grossly intact no focal or motor sensory deficits ASSESSMENT: I had a long and detailed discussion with the patient about his situation. We discussed the technical aspects of a robotic left inguinal hernia repair possible bilateral. In addition we discussed the possibility of an open umbilical hernia repair. We discussed the technical aspects of both procedures as well as the general risks including bleeding, infection, heart attack, stroke, bowel injury, testicular injury and loss, etc.. After thorough and detailed discussion the patient has agreed to proceed with the open umbilical hernia repair as well as the robotic inguinal hernia repair. I will get him scheduled at his convenience. The patient also brought up the fact that he is had some intermittent hematuria as well as frequency and therefore I am going to go ahead and refer him to Dr. Avery in Urology. Sincerely, Jeffrey Chu This document has been prepared with the use of voice recognition software and may contain sound alike and software old missions or errors in punctuate muhammad and or spelling, etc. [email or web address] Not available 2023 11:56:25 Plan of Treatment Reminders Order Date Submit Date Provider Last Modified By Organization Details Last Modified Time Details Appointments None record ed. Lab None record ed. Referral None record ed. Procedures None record ed. Surgeries None record ed. Imaging None record ed. Medication Orders None record ed. Patient TargetsNo targets recorded. Patient InstructionsNo instructions recorded. Reason for Referral None Reported. Results Created Date Observation Date Name Description Value Unit Range Abnormal Flag Note LastModifiedBy Organization Detail LastModifiedTime 02/11/20 23 02/10/2023 CBC AUTO NO DIFF (HEMO GRAM) WBC 4.1 K/uL 4.0-10 .5 Not Available [facility] ([facility]) [address] [facility], [place], [address], 02/10/2023 10:08:24 02/11/20 23 02/10/2023 CBC AUTO NO DIFF (HEMO GRAM) RBC 4.0 M/mm3 4.7-6. 1 low Not Available [facility] ([facility]) [address] [facility], [place], [address], 02/10/2023 10:08:24 02/11/20 23 02/10/2023 CBC AUTO NO DIFF (HEMO GRAM) HGB 13.8 gm/dL 13.5-1 8.0 Not Available [facility] ([facility]) [address] [facility], [place], [address], 02/10/2023 10:08:24 02/11/20 23 02/10/2023 CBC AUTO NO DIFF (HEMO GRAM) HCT 40.3 % 42.0-5 2.0 low Not Available [facility] ([facility]) [address] [place], [address], 02/10/2023 10:08:24 02/11/20 23 02/10/2023 CBC AUTO NO DIFF (HEMO GRAM) MCV 101.8 fL 78-100 high Not Available [facility] ([facility]) [address] [place], [address], 02/10/2023 10:08:24 02/11/20 23 02/10/2023 CBC AUTO NO DIFF (HEMO GRAM) MCH 34.8 pg 27-31 high Not Available [facility] ([facility]) [address] , [place], [address], 02/10/2023 10:08:24 02/11/20 23 02/10/2023 CBC AUTO NO DIFF (HEMO GRAM) MCHC 34.2 g/dL 32-36 Not Available [facility] ([facility]) [address], [place], [address], 02/10/2023 10:08:24 02/11/20 23 02/10/2023 CBC AUTO NO DIFF (HEMO GRAM) RDW 15.9 % 11.5-1 4.0 high Not Available [facility] ([facility]) [address], [place], [address], 02/10/2023 10:08:24 02/11/20 23 02/10/2023 CBC AUTO NO DIFF (HEMO GRAM) platelet count 71 K/uL 150-45 0 low Not Available [facility] ([facility]) [address], [place], [address], 02/10/2023 10:08:24 02/11/20 23 02/10/2023 CBC AUTO NO DIFF (HEMO GRAM) manual differential NO Not Available [facility] ([facility]) [address], [place], [address], 02/10/2023 10:08:24 02/11/20 23 02/10/2023 COMP METAB OLIC PANEL sodium 139 mmol/ L 136-14 5 Not Available [facility] ([facility]) [address] [place], [address], 02/10/2023 10:40:35 02/11/20 23 02/10/2023 COMP METAB OLIC PANEL potassium 3.7 mmol/ L 3.6-5. 0 Not Available [facility] ([facility]) [address] , [place], [address], 02/10/2023 10:40:35 02/11/20 23 02/10/2023 COMP METAB OLIC PANEL chloride 105 mmol/ L 98-107 Not Available [facility] ([facility]) [address] , [place], [address], 02/10/2023 10:40:35 02/11/20 23 02/10/2023 COMP METAB OLIC PANEL carbon dioxide 26.3 mmol/ L 21.0-3 2.0 Not Available [facility] ([facility]) [address], [place], [address], 02/10/2023 10:40:35 02/11/20 23 02/10/2023 COMP METAB OLIC PANEL anion gap 11.4 Not Available [facility] ([facility]) [address], [place], [address], 02/10/2023 10:40:35 02/11/20 23 02/10/2023 COMP METAB OLIC PANEL glucose 108 mg/dL 70-120 Not Available [facility] ([facility]) [address], [place], [address], 02/10/2023 10:40:35 02/11/20 23 02/10/2023 COMP METAB OLIC PANEL BUN 5 mg/dL 7-18 low Not Available [facility] ([facility]) [address] , [place], [address], 02/10/2023 10:40:35 02/11/20 23 02/10/2023 COMP METAB OLIC PANEL creatinine 0.7 mg/dL 0.6-1. 3 Not Available [facility] ([facility]) [address] , [place], [address], 02/10/2023 10:40:35 02/11/20 23 02/10/2023 COMP METAB OLIC PANEL glomerular filtration rate >60 mlper min 60- Not Available [facility] ([facility]) [address], [place], [address], 02/10/2023 10:40:35 02/11/20 23 02/10/2023 COMP METAB OLIC PANEL total protein 7.4 g/dL 6.4-8. 2 Not Available [facility] ([facility]) [address], [place], [address], 02/10/2023 10:40:35 02/11/20 23 02/10/2023 COMP METAB OLIC PANEL albumin 2.5 g/dL 3.4-5. 0 low Not Available [facility] ([facility]) [address], [place], [address], 02/10/2023 10:40:35 02/11/20 23 02/10/2023 COMP METAB OLIC PANEL globulin 4.9 Not Available [facility] ([facility]) [address], [place], [address], 02/10/2023 10:40:35 02/11/20 23 02/10/2023 COMP METAB OLIC PANEL alb/glob ratio 0.5 0.7-2 low Not Available [facility] ([facility]) [address], [place], [address], 02/10/2023 10:40:35 02/11/20 23 02/10/2023 COMP METAB OLIC PANEL calcium 8.1 mg/dL 8.5-10 .5 low Not Available [facility] ([facility]) [address], [place], [address], 02/10/2023 10:40:35 02/11/20 23 02/10/2023 COMP METAB OLIC PANEL bilirubin total 4.00 mg/dL 0.10-1 .00 high Not Available [facility] ([facility]) [address], [place], [address], 02/10/2023 10:40:35 02/11/20 23 02/10/2023 COMP METAB OLIC PANEL AST (SGOT) 75 U/L 0-37 high Not Available [facility] ([facility]) [address], [place], [address], 02/10/2023 10:40:35 02/11/20 23 02/10/2023 COMP METAB OLIC PANEL ALT (SGPT) 38 U/L 0-65 Not Available [facility] ([facility]) [address], [place], [address], 02/10/2023 10:40:35 02/11/20 23 02/10/2023 COMP METAB OLIC PANEL alk phosphatase 334 U/L 46-116 high Not Available [facility] ([facility]) [address], [place], [address], 02/10/2023 10:40:35 Result Notes None recorded. Procedures Surgical History Date Name Laterality Status Provider Name and Address Organization Details Recorded Time Hernia Repair completed Rafa CARLOS - [facility] [place] 2023 11:10:15 Imaging Results None recorded. Procedure Notes None recorded. Medical Equipment None Reported. Allergies No known drug allergies Medications Name Sig Start Date Stop Date Status Note LastModified by Organization Details LastModified Time amoxicillin 500 mg capsule 02/01 completed Not Available Not Available Not Available cannabidiol (CBD) oral oil Take by oral route. active Not Available Not Available No t Available Vitals Date Recorded Body height Body mass index (BMI) Body weight Heart rate Systolic blood pressure Diastolic blood pressure Provider Name and Address Organization Details Last Updated DateTime 3 170.18 cm 30.2 kg/m2 17050.3 3 g 77 /min 154 mm[Hg] 94 mm[Hg] Rafa harp [place] - [facility] [place] 3 11:23:09 Social History Question Answer Notes LastModified by Organizat ion Details LastModified Time Tobacco Smoking Status Former Smoker [facility] [place] [facility] [place] 2023 11:10:32 When Did You Quit Smoking? 6-10yearssin celastcigare tte [place] Information not available 2023 Sex: Unknown Functional Status None recorded. Mental Status None recorded. Family History Nothing Reported. Medical History No medical history recorded. Past Encounters Encounter ID Performer Location Encounter Start Date Encounter Closed Date Diagnosis/Indication Diagnosis SNOMED-CT Code Diagnosis ICD10 Code Diagnosis Note [id number] Jeffrey Chu MD [facility] [address] [facility] [address] [place] [address] 2023 10:52:58 2023 11:57:37 Left inguinal hernia 993565074 K40.90 Umbilical hernia 9095333 07 K42.9 Health Concerns Section Related Observation LastModified by Organization Detai ls LastModified Time None Recorded Concern Status LastModified by Organization Details LastModified Time None Recorded Advance Directives Directive None Recorded Payers Insurance Date Sequence Insurance Name Policy Number Policy Mcdaniel Covered Member ID Mcdaniel Member ID Guarantor Name 2023 1 [employer] David Pop [id number] David Pop 02/12/2023 1 [employer] (POS) David Pop [id number] David Pop
--- OUTSIDE RECORDS SUMMARY | 2025-04-23 08:31 | XMS_ITS | Encounter Summary ---
Author Organization Healthcare Address [address] [place] [address] Care Team Providers Care Glass Furnace Tender Name Role Phone KaronUrban Primary Care Provider [phone] Ruma Hernández EMISSIONS TESTING TECHNICIAN Unavailable [phone] Chris Medel MD Primary Care Provider [phone] Encounter Details Date Type Department Care Team (Late st Contact Info) Description 03/22/2023 Orders Only External Location [address] [place] [address] Provider, External Social History Tobacco Use Types Packs/Day Years Used Date Smoking Tobacco: Never Assessed Sex and Gender Information Value Date Recorded Sex Assigned at Not on file Legal Sex Male 8:57 PM EDT Gender Identity Not on file Sexual Orientation Not on file documented as of this encounter Plan of Treatment Upcoming Encounters Date Type Department Care Team (Late st Contact Info) Description 06/13/2025 6:45 AM EDT Clinical Support [facility] [address] [place] [address] 06/13/2025 8:00 AM EDT Office Visit [facility] [address] [place] [address] Portia Maguire MD [address] [place] [address] 06/13/2025 11:30 AM EDT Appointment Cardiac Imaging [address] [place] [address] 06/13/2025 2:00 PM EDT Appointment [facility] [address] [place] [address] 06/26/2025 3:20 PM EDT Appointment [facility] Bone & Mineral Metabolism [address] [facility], [address] [place] [address] 06/26/2025 3:40 PM EDT Office Visit [facility] Mineral Metabolism [address] [facility], [address] [place] [address] Moustapha Katz MD [address] [facility] [address] [place] [address] 10/03/2025 12:45 PM EST Office Visit Medical Office Building Urology [address] [facility], [address] [place] [address] Suhail Brock MD [address] [facility] [address] [place] [address] documented as of this encounter Procedures Procedure Name Priority Date/Time Associated Diagnosis Comments US OUTSIDE IMAGES 03/22/2023 2:13 PM EDT documented in this encounter Results * US OUTSIDE IMAGES (03/22/2023 2:13 PM EDT) Anatomical Region Laterality Modality Ultrasound 03/22/2023 2:13 PM EDT us External Provider IMG US PROCEDURES Final Result documented in this encounter Visit Diagnoses Not on filedocumented in this encounter Care Teams Glass Furnace Tender Relationship Specialty Start Date End Date Urban Brantley DO [address] [place] [address] PCP - General 07/30/23 03/13/25 Chris Medel MD [address] [place] [address], [place] [address] PCP - General 03/14/25 Ruma Hernández APRN [address] [facility] [address] [place] [address] Referring Physician Gastroenterology 07/30/23 documented as of this encounter
--- OUTSIDE RECORDS SUMMARY | 2025-04-23 08:31 | XMS_ITS ---
Author Organization [facility] Address [address] 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
--- OUTSIDE RECORDS SUMMARY | 2025-04-23 08:31 | XMS_ITS | Encounter Summary ---
Author Organization Healthcare Address [address] [place] [address] Care Team Providers Care Vegetable Grader Name Role Phone ToniUrban morataya Primary Care Provider [phone] Ruma Hernández DIRECTOR SPEECH Unavailable [phone] Encounter Details Date Type Department Care Team ([facility] st Contact Info) Description 03/06/2025 Telephone [facility] [address] [facility], [address] [place] [address] Dulce Miller Social History Tobacco Use Types Packs/Day Years [...] often do you attend chur ch or hinduism services? More than 4 times per year 02/19/2025 Do you belong to any clubs o r organizations such as rastafarian groups, unions, fraternal or athletic groups, or [...] Recorded Patient Health Questionnaire-2 Score 0 12/13/2024 [facility] - Occupational [...] any time in the past 12 m ont, were you homeless or living in a nursing home (including now)? No 02/19/2025 Utilities Answer [...] as of this encounter Miscellaneous Notes * Telephone Encounter - Dulce Miller - 03/06/2025 4:04 PM EDT Telehealth rooming complete documented in this encounter Plan of Treatment Upcoming Encounters Date Type Department Care Team (Late st Contact Info) Description 06/13/2025 6:45 AM EDT Clinical Support [facility] [place] [address] [place] [address] 06/13/2025 8:00 AM EDT Office Visit [facility] [place] [address] [place] [address] Portia Maguire MD [address] [facility] [address] [place] [address] 06/13/2025 11:30 AM EDT Appointment Cardiac Imaging [address] [place] [address] 06/13/2025 2:00 PM EDT Appointment [facility] [address] [place] [address] 06/26/2025 3:20 PM EDT Appointment [facility] Bone & Mineral Metabolism [address] [facility], [address] [place] [address] 06/26/2025 3:40 PM EDT Office Visit [facility] Bone & Mineral Metabolism [address] [facility], [address] [place] [address] Moustapha Katz MD [address] [facility] [address] [place] [address] 10/03/2025 12:45 PM EST Office Visit Medical Office Building Urology [address] [facility], [address] [place] [address] Suhail Brock MD [address] [facility] [address] [place] [address] documented as of this encounter [...] documented as of this encounter Care Teams Vegetable Grader Relationship Specialty Start Date End Date Urban Brantley DO [address] [place] [address] PCP - General 07/30/23 03/13/25 Ruma Hernández APRN [address] [place] [address] Referring Physician Gastroenterology 07/30/23 documented as of this encounter
--- OUTSIDE RECORDS SUMMARY | 2025-04-23 08:31 | XMS_ITS | Encounter Summary ---
Author Organization Healthcare Address [address] [place] [address] Care Team Providers Care Sprinkling System Installer Name Role Phone KaronUrban Primary Care Provider [phone] Ruma Hernández WIND TURBINE TECHNICIAN Unavailable [phone] Chris Medel MD Primary Care Provider [phone] Encounter Details Date Type Department Care Team (Late st Contact Info) Description 03/22/2023 Orders Only External Location [address] [place] [address] Provider, External Social History Tobacco Use Types [...] Description 06/13/2025 6:45 AM EDT Clinical Support [facility] [address] [place] [address] 06/13/2025 8:00 AM EDT Office Visit [facility] [address] [place] [address] Portia Maguire MD [address] [place] [address] 06/13/2025 11:30 AM EDT Appointment Cardiac Imaging [address] [place] [address] 06/13/2025 2:00 PM EDT Appointment [facility] [address] [place] [address] 06/26/2025 3:20 PM EDT Appointment [facility] Bone & Mineral Metabolism [address] [facility], [address] [place] [address] 06/26/2025 3:40 PM EDT Office Visit [facility] Mineral Metabolism [address] [facility], [address] [place] [address] Moustapha Katz MD [address] [facility] [address] [place] [address] 10/03/2025 12:45 PM EST Office Visit Medical Office Building Urology [address] [facility], [address] [place] [address] Suhail Brock MD [address] [facility] [address] [place] [address] documented as of this encounter Procedures Procedure Name Priority Date/Time Associated Diagnosis Comments US OUTSIDE IMAGES 03/22/2023 1:50 PM EDT documented in this encounter Results * US OUTSIDE IMAGES (03/22/2023 1:50 PM EDT) Anatomical Region Laterality Modality Ultrasound 03/22/2023 1:50 PM EDT us External Provider IMG US PROCEDURES Final Result documented in this encounter Visit Diagnoses Not on filedocumented in this encounter Care Teams Sprinkling System Installer Relationship Specialty Start Date End Date Urban Brantley DO [address] [place] [address] PCP - General 07/30/23 03/13/25 Chris Medel MD [address] [place] [address], [place] [address] PCP - General 03/14/25 Ruma Hernández APRN [address] [facility] [address] [place] [address] Referring Physician Gastroenterology 07/30/23 documented as of this encounter
--- OUTSIDE RECORDS SUMMARY | 2025-04-23 08:31 | XMS_ITS | Encounter Summary ---
Author Organization Healthcare Address [address] [place] [address] Care Team Providers Care Application Infrastructure Engineer Name Role Phone Ruma Hernández FUNERAL HOME ASSOCIATE Unavailable [phone] Chris Medel MD Primary Care Provider [phone] Encounter Details Date Type Department Care Team (Late st Contact Info) Description 04/03/2025 Results Follow-Up [facility] [address] [place] [address] Meaghan Le, RN [id number] [address] [id number] Social History Tobacco Use Types Packs/Day Years [...] week 02/19/2025 How often do you attend [facility] or mormon services? More than 4 times per year 02/19/2025 Do you belong to any clubs o r organizations such as quaker groups, unions, fraternal or athletic groups, or [...] Recorded Patient Health Questionnaire-2 Score 0 03/14/2025 [facility] - Occupational Stress [...] any time in the past 12 m [facility], were you homeless or living in [...] Miscellaneous Notes * Result Encounter Note - Zarina Moore PA - 04/03/2025 3:49 PM EDT MELD 20, no changes * Result Encounter Note - Meaghan Le RN - 04/03/2025 12:57 PM EDT MELD labs documented in this encounter Plan of Treatment Upcoming Encounters Date Type Department Care Team (Late st Contact Info) Description 06/13/2025 6:45 AM EDT Clinical Support [facility] [place] [address] [facility] [address] [place] [address] 06/13/2025 8:00 AM EDT Office Visit [facility] [place] [address] [facility] [address] [place] [address] Portia Maguire MD [address] [facility] [address] [place] [address] 06/13/2025 11:30 AM EDT Appointment Cardiac Imaging [address] [place] [phone] 06/13/2025 2:00 PM EDT Appointment [facility] [address] [place] [address] 06/26/2025 3:20 PM EDT Appointment Professional [facility] [address], [address] [place] [address] 06/26/2025 3:40 PM EDT Office Visit [facility] [address], [address] [place] [address] Moustapha Katz MD [address] [place] [address] 10/03/2025 12:45 PM EST Office Visit Medical Office Building Urology [address], [address] [place] [address] Suhail Brock MD [address] [facility] [address] [place] [address] documented as of this encounter [...] documented as of this encounter Care Teams Application Infrastructure Engineer Relationship Specialty Start Date End Date Chris Medel MD [address] [place] [address] PCP - General 03/14/25 Ruma Hernández APRN [address] [address] Referring Physician Gastroenterology 07/30/23 documented as of this encounter
--- OUTSIDE RECORDS SUMMARY | 2025-04-23 08:31 | XMS_ITS | Encounter Summary ---
Author Organization Healthcare Address [address] [place] [address] Care Team Providers Care Vp Project Name Role Phone [employer] Primary Care Provider [phone] Ruma Hernández CHANNEL SALES MANAGER Unavailable [phone] Chris Medel MD Primary Care Provider [phone] Encounter Details Date Type Department Care Team (Late st Contact Info) Description 05/09/2023 Orders Only External Location [address] [place] [address] Provider, External Social History Tobacco Use Types [...] Support [facility] [address] [place] [address] 06/13/2025 8:00 AM EDT Office Visit [facility] [address] [place] [address] Portia Maguire MD [address] [place] [address] 06/13/2025 11:30 AM EDT Appointment Cardiac Imaging [address] [place] [address] 06/13/2025 2:00 PM EDT Appointment [facility] [address] [place] [address] 06/26/2025 3:20 PM EDT Appointment [facility] [address], [address] [place] [address] 06/26/2025 3:40 PM EDT Office Visit [facility] [address] [facility] [address], [address] [place] [address] Moustapha Katz MD [address] [facility] [address] [place] [address] 10/03/2025 12:45 PM EST Office Visit Medical Office Building Urology [address] [facility] [address], [address] [place] [address] Suhail Brock MD [address] [facility] [address] [place] [address] documented as of this encounter Procedures Procedure Name Priority Date/Time Associated Diagnosis Comments MR OUTSIDE IMAGES 05/09/2023 5:14 PM EDT documented in this encounter Results * MR transfer of outside films (05/09/2023 5:14 PM EDT) Anatomical Region Laterality Modality Magnetic Resonan ce 05/09/2023 5:14 PM EDT us External Provider IMG MRI PROCEDURES Final Resul t documented in this encounter Visit Diagnoses Not on filedocumented in this encounter Care Teams Vp Project Relationship Specialty Start Date End Date Urban Brantley DO [address] [place], [place] [id number] PCP - General 07/30/23 03/13/25 Chris Medel MD [address] [place] [address] PCP - General 03/14/25 Ruma Hernández APRN [address] [place] [address] [address] [place] [address] Referring Physician Gastroenterology 07/30/23 documented as of this encounter
--- OUTSIDE RECORDS SUMMARY | 2025-04-23 08:32 | XMS_ITS | Clinical Summary ---
Author Organization [facility] Address [address] [place] [address] Care Team Providers Care Loader Helper Name Role Phone Ruma Hernández REWRITE EDITOR Unavailable [phone] Chris Medel MD Primary Care Provider [phone] Allergies Active Allergy Reactions Criticality Noted Date Comments Lisinopril Cough Low 09/15/2021 Medications carvedilol (Coreg) 3.125 MG tabletIndication s:Cirrhosis of liver with ascites, unspecified hepatic cirrhosis type (CMS/HCC) Take 1 tablet (3.125 mg) by mouth 2 (two) times a day with meals. 60 tablet 11 4 09/13/20 25 Active Xifaxan 550 MG tablet 5 Active ergocalciferol (Vitamin D-2) 1.25 MG (18042 UT) capsule Take 1 capsule by mouth 1 (one) time per week. 12 capsule 2 5 Active Calcium-Vitamin D (CALTRATE 600 PLUS-VIT D PO) Take 600 mg by mouth 2 times a day. Active furosemide (Lasix) 20 MG tabletIndication s:Bilateral leg edema,Cirrhosis of liver with ascites, unspecified hepatic cirrhosis type (CMS/HCC),Other ascites Take 2 tablets by mouth daily. 180 tablet 3 5 03/14/20 26 Active spironolactone (Aldactone) 50 MG tabletIndication s:Bilateral leg edema,Cirrhosis of liver with ascites, unspecified hepatic cirrhosis type (CMS/HCC),Other ascites Take 2 tablets by mouth daily. 180 each 3 5 03/14/20 Active omeprazole (PriLOSEC) [address] Baez ns:Cirrhosis of liver with ascites, unspecified hepatic cirrhosis type (CMS/HCC) Take 2 capsules by mouth daily. 180 capsule 3 5 03/14/20 26 Active Active Problems Problem Noted Date Diagnosed Date Bilateral leg edema 03/14/2025 Other ascites 03/14/2025 Left inguinal hernia 02/19/2025 Other osteoporosis without current pathological fracture 12/26/2024 Iron overload 12/26/2024 Vitamin D deficiency 12/26/2024 Obesity (BMI 35.0-39.9 without comorbidity) 11/16 Severe obesity (BMI 35.0-39.9) with comorbidity 12/13/2024 Alcoholic cirrhosis of liver 11/14/2024 HTN (hypertension) 11/14/2024 HLD (hyperlipidemia) 10/29/2023 Encounters Date Type Department Care Team Description 04/03/2025 Results Follow-Up [facility] [address] [address] Meaghan Le RN 03/30/2025 Results Follow-Up [facility] [address] [address] Meaghan Le RN 03/14/2025 9:16 AM EDT - 03/14/2025 11:59 PM EDT Hospital Encounter [facility] Radiology [address] [place] [address] Pre-liver transplant, listed Discharge Disposition: Home or Self Care 03/14/2025 8:00 AM EDT Office Visit [facility] [address] [address] Zarina Moore, PA Alcoholic cirrhosis of liver with ascites (CMS/HCC) (Primary Dx); Left inguinal hernia; Bilateral leg edema; Cirrhosis of liver with ascites, unspecified hepatic cirrhosis type (CMS/HCC); Other ascites 03/14/2025 6:59 AM EDT - 03/14/2025 9:15 AM EDT Hospital Encounter [facility] [address] [place] [address] Nephrolithiasis Discharge Disposition: Home or Self Care 03/14/2025 Travel 03/06/2025 4:00 PM EDT Office Visit Professional [facility] [address], [address] [place] [address] Moustapha Katz MD Other osteoporosis without current pathological fracture (Primary Dx); Alcoholic cirrhosis of liver with ascites (CMS/HCC); Iron overload; Obesity (BMI 35.0-39.9 without comorbidity); Vitamin D deficiency; Other ascites 03/06/2025 Telephone Professional [facility] [address] [facility], [address] [place] [address] Dulce Miller 03/05/2025 Results Follow-Up [facility] [address] [place] [address] Meaghan Le RN 03/05/2025 Travel 02/20/2025 Telephone [facility] [address], [address] [place] [address] Zeferino Jiang 02/19/2025 10:30 AM EDT Consult Medical Office Building Surgical Specialties [address] [facility], [address] [place] [address] Jaquan Howell MD Alcoholic cirrhosis of liver with ascites (CMS/HCC) (Primary Dx); Left inguinal hernia; Obesity (BMI 35.0-39.9 without comorbidity); Hypertension, unspecified type 02/19/2025 Travel 02/15/2025 Abstract Medical Office Building Surgical Specialties [address], [address] [place] [address] Gildardo Rivera 02/07/2025 1:38 PM EDT - 02/07/2025 3:27 PM EDT Emergency [facility] Emergency Department [address] [place] [address] Carlos Chun MD Left inguinal hernia (Primary Dx) Discharge Disposition: Home or Self Care 02/07/2025 Travel 02/07/2025 Telephone [facility] [address] [place] [address] Meaghan Le RN 02/06/2025 Results Follow-Up [facility] [address] [place] [phone] Meaghan Le, RN from Last 3 Months Immunizations Immunization Administration Dates Next Due Hep B, adult 12/28/2023,06/29/2023,06/02/2023 Family History Medical History Relation Name Comments Diabetes Daughter Gloria Hearing loss Mother Sera Relation Name Status Comments Daughter Gloria Mother Sera Social History Tobacco Use Types Packs/Day Years [...] week 02/19/2025 How often do you attend [facility] or anabaptist services? More than 4 times per year 02/19/2025 Do you belong to any clubs o r organizations such as pentecostalism groups, unions, fraternal or athletic groups, or [...] Score 0 03/14/2025 [facility] - Occupational Stress Questionnaire Answer Date Recorded [...] any time in the past 12 [facility], were you homeless or living in [...] on file Sexual Orientation Not on file Last Filed Vital Signs Vital Sign Reading [...] Mass Index 31.84 03/14/2025 7:30 AM EDT Plan of Treatment Upcoming Encounters Date Type Department Care Team (Late st Contact Info) Description 06/13/2025 6:45 AM EDT Clinical Support [facility] [address] [place] [address] 06/13/2025 8:00 AM EDT Office Visit [facility] [place] [address] [place] [address] Portia Maguire MD [address] [place] [address] 06/13/2025 11:30 AM EDT Appointment Cardiac Imaging [address] [place] [phone] 06/13/2025 2:00 PM EDT Appointment [facility] Radiology [address] [place] [address] 06/26/2025 3:20 PM EDT Appointment Professional [facility] [address] [facility], [address] [place] [address] 06/26/2025 3:40 PM EDT Office Visit [facility] [address], [address] [place] [address] Moustapha Katz MD [address] [facility] [address] [place] [address] 10/03/2025 12:45 PM EST Office Visit Medical Office Building Urology [address], [address] [place] [address] Suhail Brock MD [address] [facility] [address] [place] [address] Health Maintenance Due Date Last Done Comments [facility]-Infant/Child/Adol SDOH Screenings 1960 [facility]-DTaP,Tdap,and Td Vaccines (1 - Tdap) 02/02/1980 [facility]-Hepatitis A Vaccines (1 of 2 - Risk 2-dose series) 02/02/1980 [facility]-Pneumococcal Vaccine: 50+ Years (1 of 2 - PCV) 02/02/1980 CT Colonography 2006 Colonoscopy 2006 FIT-DNA 2006 FIT 2006 FOBT 2006 Sigmoidoscopy 2006 [facility]-Colorectal Cancer Screening 2006 [facility]-Zoster Vaccines (1 of 2) 2011 [facility]-RSV Vaccine: 60+ Years or (1 - Risk 60-74 years 1-dose series) 2021 [id number]-40 Vaccine ( - season) 2024 [facility]-Bone Density Scan 04/11/2025 04/11/2024 [facility]-Influenza Vaccine (Season Ended) 2025 [facility]- SDOH Screenings 08/21/2025 [facility]-Adult SDOH Screenings 08/21/2025 02/19/2025 [facility]-Depression Screening 03/14/2026 03/14/2025, 09/16 [facility]-Hepatitis C Screening Completed 08/03/2023 [facility]-HIV Screening Completed 04/11/2024 [facility]-Obesity Intervention Completed 025, 03/06/2025, 02/19/2025, Additional history exists HPV Vaccines Aged Out No longer eligi ble based on patient's age to complete this topic [facility]-HIB Vaccines Aged Out No longer e ligible based on patient's age to complete this topic [facility]-IPV Vaccines Aged Out No longer e ligible based on patient's age to complete this topic [facility]-Rotavirus Vaccines Aged Out No lo nger eligible based on patient's age to complete this topic Procedures Procedure Name Priority Date/Time Associated Diagnosis Comments COMPREHENSIVE METABOLIC PANEL, PLASMA Routine 04/02/2025 CBC W/O DIFFERENTIAL Routine 04/02/2025 PROTHROMBIN TIME(PT) / INR Routine 04/02/2025 FERRITIN, SERUM Routine 03/26/2025 HEMOGLOBIN Routine 03/26/2025 HEMATOCRIT, BLOOD Routine 03/26/2025 CT ABDOMEN PELVIS W AND WO IV CONTRAST Routine 03/14/2025 10:35 AM EDT Pre-liver transplant, listed XR ABDOMEN 1 VIEW Routine 03/14/2025 7:1 2 AM EDT Nephrolithiasis PAIN MANAGEMENT, QUANTITATIVE URINE DRUG TESTING Routine 03/14/2025 6:43 AM EDT Pre-liver transplant, listed ALPHA FETOPROTEIN, SERUM Routine 03/14/2025 6:43 AM EDT Pre-liver transplant, listed PROTHROMBIN TIME(PT) / INR Routine 03/14/2025 6:43 AM EDT Pre-liver transplant, listed PAIN MANAGEMENT, QUANTITATIVE URINE DRUG TESTING Routine 03/14/2025 6:43 AM EDT Pre-liver transplant, listed NICOTINE AND COTININE METABOLITE, SERUM, QUANTITATIVE Routine 03/14/2025 6:43 AM EDT Pre-liver transplant, listed COMPREHENSIVE URINE DRUG SCREENING,QUALITATIVE ASSAY, >= 27 DRUG CLASSES Routine 03/14/2025 6:43 AM EDT Pre-liver transplant, listed COMPREHENSIVE METABOLIC PANEL, PLASMA Routine 03/14/2025 6:43 AM EDT Pre-liver transplant, listed CBC W/O DIFFERENTIAL Routine 03/14/2025 6:43 AM EDT Pre-liver transplant, listed ALCOHOL, URINE Routine 03/14/2025 6:43 AM EDT Pre-liver transplant, listed COMPREHENSIVE METABOLIC PANEL, PLASMA Routine 03/05/2025 CBC W/O DIFFERENTIAL Routine 03/05/2025 PROTHROMBIN TIME(PT) / INR Routine 03/05/2025 COMPREHENSIVE METABOLIC PANEL, PLASMA Routine 02/05/2025 CBC W/O DIFFERENTIAL Routine 02/05/2025 PROTHROMBIN TIME(PT) / INR Routine 02/05/2025 DEXA BONE DENSITY Routine 04/11/2024 12: 32 PM EDT Pre-transplant evaluation for liver transplant HIV 1/2 ANTIBODY/ANTIGEN SCREEN WITH REFLEX TO HIV I/II DIFFERENTIATION Routine 04/11/2024 6:27 AM EDT Pre-transplant evaluation for liver transplant HEPATITIS C ANTIBODY W/REFLEX TO HCV QUANT PCR Routine 08/03/2023 7:30 AM EDT End-stage liver disease (CMS/HCC) from Last 3 Months or Most Recently Relevant to Health Maintenance Results * Prothrombin Time/INR (04/02/2025) Only the most recent of4 resultswithin the time period is included. External Prothrombin Time (PT) 16.7 External INR - Internormal Ratio 1.55 Blood Venous blood specimen / Unknown 04/02/2025 Historical Provider MD LAB BLOOD ORDERABLES Nadia l Result * CBC W/O Differential (04/02/2025) Only the most recent of4 resultswithin the time period is included. External WBC 5.3 External Red Blood Cell (RBC) 3.49 External Hemoglobin (Hgb) 12.20 External Hematocrit (Hct) 35.5 External Platelet Count (Plt) 67 Blood Venous blood specimen / Unknown 04/02/2025 Historical Provider MD LAB BLOOD ORDERABLES Nadia l Result * Comprehensive Metabolic Panel, Plasma (04/02/2025) Only the most recent of4 resultswithin the time period is included. External Glucose 101 External BUN 10 External Creatinine Blood 0.80 mg/dL External Sodium (Na) 136 mEq/L External Potassium (K) 3.6 External Chloride (Cl) 109 External Carbon Dioxide (CO2) 27 External Anion Gap (AG) 3.6 External Calcium (Ca) 7.4 External Total Protein 6.1 External Albumin 2.1 g/dL External AST (SGOT) 47 External ALT (SGPT) 32 External Alkaline Phosphatase 197 External Bilirubin Total 4.2 mg/dL External Estimated GFR 97 External EGFR (If AFR/AM) 118 Blood Venous blood specimen / Unknown 04/02/2025 Result [facility] MD LAB BLOOD ORDERABLES Nadia l Result * Hemoglobin, Blood (03/26/2025) External Hemoglobin (Hgb) 11.70 Blood Venous blood specimen / Unknown 03/26/2025 Result [facility] MD LAB BLOOD ORDERABLES Nadia l Result * Hematocrit, Blood (03/26/2025) External Hematocrit (Hct) 34.1 Blood Venous blood specimen / Unknown 03/26/2025 Result [facility] MD LAB BLOOD ORDERABLES Nadia l Result * Ferritin, Serum (03/26/2025) External Ferritin 77.9 Blood Venous blood specimen / Unknown 03/26/2025 Result [facility] MD LAB BLOOD ORDERABLES Edit ed Result - Final * CT Liver (03/14/2025 10:35 AM EDT) [...] are consistent with and integrated into the [place] [employer] of Liver Diseases [...] are consistent with and integrated into the [place] Associationfor the Study of Liver Diseases (AASLD) [...] Arturo Wasserman MD on 03/14/2025 11:54 AM us Portia Maguire MD IMG CT PROCEDURES Final R esult * XR Abdomen 1 View (03/14/2025 7:12 [...] Celio Wren MD on 03/14/2025 8:40 AM us Suhail Brock MD IMG XR PROCEDURES Final Result * Pain Management, Quantitative Urine Drug Testing (03/14/2025 6:43 AM EDT) Alpha [place] Alprazolam <20 <20 ng/mL 03/15 5:41 AM EDT [facility] Alpha [place] Midazolam <20 <20 ng/mL 2024 5:41 AM EDT [facility] Alpha [place] Triazolam <20 <20 ng/mL 2024 5:41 AM EDT [facility] Alprazolam <10 <10 ng/mL 03/15/2025 5:41 AM EDT [facility] Aminoclonazepam <20 <20 ng/mL 5:41 AM EDT [facility] Amphetamine <50 <50 ng/mL 03/15/2025 5:41 AM EDT [facility] Benzoylecgonine <50 <50 ng/mL 5:41 AM EDT [facility] Buprenorphine <10 <10 ng/mL 03/15/2025 5:41 AM EDT [facility] Buprenorphine Glucuronide <50 <50 ng/mL 03/15/2025 5:41 AM EDT [facility] Butalbital <50 <50 ng/mL 03/15/2025 5:41 AM EDT [facility] 9 Carboxy THC <10 <10 ng/mL 03/15/2025 5:41 AM EDT [facility] 9 Carboxy THC Glucuronide <25 <25 ng/mL 03/15/2025 5:41 AM EDT [facility] Clonazepam <10 <10 ng/mL 03/15/2025 5:41 AM EDT [facility] Codeine <50 <50 ng/mL 03/15/2025 5:41 AM EDT [facility] Codeine Glucuronide <50 <50 ng/mL 03/15 5:41 AM EDT [facility] Cyclobenzaprine <50 <50 ng/mL 5:41 AM EDT [facility] Desmethyl Tramadol <50 <50 ng/mL 2024 5:41 AM EDT [facility] Diazepam <10 <10 ng/mL 03/15/2025 5:41 AM EDT [facility] EDDP - Methadone Metabolite <50 <50 ng/mL 03/15/2025 5:41 AM EDT [facility] Fentanyl <1 <1 ng/mL 03/15/2025 5:41 AM EDT [facility] Hydrocodone <50 <50 ng/mL 03/15/2025 5:41 AM EDT [facility] Hydromorphone <50 <50 ng/mL 03/15/2025 5:41 AM EDT [facility] Hydromorphone Glucuronide <50 <50 ng/mL 03/15/2025 5:41 AM EDT [facility] Lorazepam <20 <20 ng/mL 03/15/2025 5:41 AM EDT [facility] Lorazepam Glucuronide <50 <50 ng/mL 03/15/2025 5:41 AM EDT [facility] MDA <50 <50 ng/mL 03/15/2025 5:41 AM EDT [facility] MDMA <50 <50 ng/mL 03/15/2025 5:41 AM EDT [facility] Meperidine <50 <50 ng/mL 03/15/2025 5:41 AM EDT [facility] Methadone <50 <50 ng/mL 03/15/2025 5:41 AM EDT [facility] Methamphetamine <50 <50 ng/mL 5:41 AM EDT [facility] Methylphenidate <50 <50 ng/mL 5:41 AM EDT [facility] 6 Monoacetyl morphine <10 <10 ng/mL 03/15/2025 5:41 AM EDT [facility] Morphine <50 <50 ng/mL 03/15/2025 5:41 AM EDT [facility] Morphine Glucuronide <50 <50 ng/mL 11/2024 5:41 AM EDT [facility] Naloxone <50 <50 ng/mL 03/15/2025 5:41 AM EDT [facility] Naloxone Glucuronide <50 <50 ng/mL 11/2024 5:41 AM EDT [facility] Norbuprenorphine <10 <10 ng/mL 03/15/20 5:41 AM EDT [facility] Norbuprenorphine Glucuronide <50 <50 ng/mL 03/15/2025 5:41 AM EDT [facility] Nordiazepam <20 <20 ng/mL 03/15/2025 5:41 AM EDT [facility] Norfentanyl <2 <2 ng/mL 03/15/2025 5:41 AM EDT [facility] Normeperidine <50 <50 ng/mL 03/15/2025 5:41 AM EDT [facility] PCP Quant, Ur <50 <50 ng/mL 03/15/2025 5:41 AM EDT [facility] Phenobarbital <50 <50 ng/mL 03/15/2025 5:41 AM EDT [facility] Oxazepam <20 <20 ng/mL 03/15/2025 5:41 AM EDT [facility] Oxazepam Glucuronide <50 <50 ng/mL 11/2024 5:41 AM EDT [facility] Oxycodone <50 <50 ng/mL 03/15/2025 5:41 AM EDT [facility] Oxymorphone <50 <50 ng/mL 03/15/2025 5:41 AM EDT [facility] Oxymorphone Glucuronide <50 <50 ng/mL 03/15/2025 5:41 AM EDT [facility] Secobarbital <50 <50 ng/mL 03/15/2025 5:41 AM EDT [facility] Tramadol <50 <50 ng/mL 03/15/2025 5:41 AM EDT [facility] Temazepam <20 <20 ng/mL 03/15/2025 5:41 AM EDT [facility] Temazepam Glucuronide <50 <50 ng/mL 03/15/2025 5:41 AM EDT [facility] Urine Urine specimen obtained by clean catch procedure / Unknown Non-blood Collection / Unknown 03/14/2025 6:43 AM EDT 03/14/2025 7:51 AM EDT Narrative [facility] - 03/15/2025 5:41 AM EDT Methodology:Quantitative Liquid Chromatography-Tandem Mass Spectrometry (LC- MS/MS) This report is intended for use in clinical monitoring or management of patients. It is NOT intended for use in employment-related drug testing. For pain management, the absence of expected drug(s) and/or drug metabolite(s) may indicate non-compliance, inappropriate timing of specimen collection relative to drug administration, poor drug absorption, or limitations of testing. Interpretive questions should be directed to the laboratory. This test was developed and its performance characteristics determined by [facility] in manner consistent with CLIA requirements. This test has not been cleared or approved by the FDA. Portia Maguire MD LAB URINE ORDERABLES Nadia l Result Performing Organization Address [facility] [place] [address] * Alpha Fetoprotein, Serum (03/14/2025 6:43 AM EDT) Alpha Fetoprotein, Serum <2.3 <10.0 ng/mL 03/14/2025 9:[address] [facility] Blood Venous blood specimen / Unknown Venipuncture / Unknown 03/14/2025 6:43 AM EDT 03/14/2025 6:59 AM EDT Narrative [facility] - 03/14/2025 9:07 AM EDT Performed by Stacey electrochemiluminescent immunoassay which is traceable to the 1st AFP IRP WHO Reference standard 72/255. Results obtained with different test methods or kits cannot be used interchangeably. Portia Maguire MD LAB BLOOD ORDERABLES Nadia l Result Performing Organization Address [facility] Co de Phone Number [facility] [address] [place] [address] * Nicotine Cotinine Metabolite (03/14/2025 6:43 AM EDT) NICOTINE <5 <5 ng/mL 03/15/2025 8:4 3 AM EDT [facility] Cotinine <5 <5 ng/mL 03/15/2025 8:4 3 AM EDT [facility] Blood Venous blood specimen / Unknown Venipuncture / Unknown 03/14/2025 6:43 AM EDT 03/14/2025 6:59 AM EDT Narrative [facility] - 03/15/2025 8:43 AM EDT Testing performed by LC-MS/MS at the [facility]. This test was developed and its performance characteristics determined by [facility]. This assay has not been cleared by the FDA. The laboratory is regulated under CLIA as qualified to perform high-complexity testing. This test is used for clinical purposes. Portia Maguire MD LAB BLOOD ORDERABLES Nadia crockett Result [facility] [address] [place] [address] * Alcohol Urine (03/14/2025 6:43 AM EDT) Alcohol Urine Negative Negative 03/14/2025 2:26 PM EDT [facility] Urine Urine specimen obtained by clean catch procedure / Unknown Non-blood Collection / Unknown 03/14/2025 6:43 AM EDT 03/14/2025 7:51 AM EDT Narrative [facility] - 03/14/2025 2:26 PM EDT The correlation between urine and serum ethanol concentration is highly variable. Test performed by Gas Chromatography at the [facility]. This test was developed and its performance characteristics determined by [facility]. It has not been cleared or approved by the FDA.The laboratory is regulated under CLIA as qualified to perform high-complexity testing. This test is used for clinical purposes only. The correlation between urine and serum ethanol concentration is highly variable. Test performed by Gas Chromatography at the [facility]. This test was developed and its performance characteristics determined by [facility]. It has not been cleared or approved by the FDA.The laboratory is regulated under CLIA as qualified to perform high-complexity testing. This test is used for clinical purposes only. us Portia Maguire MD LAB URINE ORDERABLES Nadia crockett Result [facility] [address] [place] [address] * Comprehensive Urine Drug Screening, Qualitative Assay, >= 27 Drug Classes (03/14/2025 6:43 AM EDT) Acetaminophen Negative Negative 03/26/2025 9:38 AM EDT [facility] Alprazolam Negative Negative 03/26/2025 9:38 AM EDT [facility] Amantadine Negative Negative 03/26/2025 9:38 AM EDT [facility] Amitriptyline Negative Negative 03/26/2025 9:38 AM EDT [facility] Amphetamine Negative Negative 03/26/2025 9:38 AM EDT [facility] Atenolol Negative Negative 03/26/2025 9:38 AM EDT [facility] Benzoylecgonine Negative Negative 9:38 AM EDT [facility] Bisoprolol Negative Negative 03/26/2025 9:38 AM EDT [facility] Bupropion Negative Negative 03/26/2025 9:38 AM EDT [facility] Butalbital Negative Negative 03/26/2025 9:38 AM EDT [facility] Carbamazepine Negative Negative 03/26/2025 9:38 AM EDT [facility] Carisoprodol Negative Negative 03/26/2025 9:38 AM EDT [facility] Chlorpheniramine Negative Negative 03/26/20 9:38 AM EDT [facility] Citalopram Negative Negative 03/26/2025 9:38 AM EDT [facility] Clindamycin Negative Negative 03/26/2025 9:38 AM EDT [facility] Clonidine Negative Negative 03/26/2025 9:38 AM EDT [facility] Clopidogrel / Ticlopidine Negative Negative 03/26/2025 9:38 AM EDT [facility] Cocaethylene Negative Negative 03/26/2025 9:38 AM EDT [facility] Cocaine Negative Negative 03/26/2025 9:38 AM EDT [facility] Codeine Negative Negative 03/26/2025 9:38 AM EDT [facility] Cyclobenzaprine Negative Negative 9:38 AM EDT [facility] Desvenlafaxine Negative Negative 03/26/2025 9:38 AM EDT [facility] Dextromethorphan Negative Negative 03/26/20 9:38 AM EDT [facility] Diazepam Negative Negative 03/26/2025 9:38 AM EDT [facility] Diltiazem Negative Negative 03/26/2025 9:38 AM EDT [facility] Diphenhydramine Negative Negative 9:38 AM EDT [facility] Doxepine Negative Negative 03/26/2025 9:38 AM EDT [facility] Doxylamine Negative Negative 03/26/2025 9:38 AM EDT [facility] EDDP-Methadone metabolite Negative Negative 03/26/2025 9:38 AM EDT [facility] Fentanyl Negative Negative 03/26/2025 9:38 AM EDT [facility] Fluconazole Negative Negative 03/26/2025 9:38 AM EDT [facility] Fluoxetine Negative Negative 03/26/2025 9:38 AM EDT [facility] Guaifenesin Negative Negative 03/26/2025 9:38 AM EDT [facility] Haloperidol Negative Negative 03/26/2025 9:38 AM EDT [facility] Heroin/6-MARY Negative Negative 03/26/2025 9:38 AM EDT [facility] Hydrocodone Negative Negative 03/26/2025 9:38 AM EDT [facility] Hydroxyzine / Cetirizine metabolite Negative Negative 03/26/2025 9:38 AM EDT [facility] Ibuprofen Negative Negative 03/26/2025 9:38 AM EDT [facility] Imipramine Negative Negative 03/26/2025 9:38 AM EDT [facility] Ketamine Negative Negative 03/26/2025 9:38 AM EDT [facility] Labetolol Negative Negative 03/26/2025 9:38 AM EDT [facility] Lamotrigine Negative Negative 03/26/2025 9:38 AM EDT [facility] Levetiracetam Negative Negative 03/26/2025 9:38 AM EDT [facility] Lidocaine Negative Negative 03/26/2025 9:38 AM EDT [facility] MDA Negative Negative 03/26/2025 9:38 AM EDT [facility] MDMA Negative Negative 03/26/2025 9:38 AM EDT [facility] Memantine Negative Negative 03/26/2025 9:38 AM EDT [facility] Meperidine Negative Negative 03/26/2025 9:38 AM EDT [facility] Meprobamate Negative Negative 03/26/2025 9:38 AM EDT [facility] Metaxalone Negative Negative 03/26/2025 9:38 AM EDT [facility] Methamphetamine Negative Negative 9:38 AM EDT [facility] Methocarbamol Negative Negative 03/26/2025 9:38 AM EDT [facility] Methylecgonine Negative Negative 03/26/2025 9:38 AM EDT [facility] Metoclopramide Negative Negative 03/26/2025 9:38 AM EDT [facility] Metoprolol Negative Negative 03/26/2025 9:38 AM EDT [facility] Metronidazole Negative Negative 03/26/2025 9:38 AM EDT [facility] Midazolam Negative Negative 03/26/2025 9:38 AM EDT [facility] Midazolam Metabolite Negative Negative 03/15 9:38 AM EDT [facility] Mirtazapine Negative Negative 03/26/2025 9:38 AM EDT [facility] Misc Test Result Negative Negative 03/26/20 9:38 AM EDT [facility] Naproxen Negative Negative 03/26/2025 9:38 AM EDT [facility] Nefazodone Negative Negative 03/26/2025 9:38 AM EDT [facility] Norfentanyl Negative Negative 03/26/2025 9:38 AM EDT [facility] Nortriptyline Negative Negative 03/26/2025 9:38 AM EDT [facility] Ordanstron Negative Negative 03/26/2025 9:38 AM EDT [facility] Oxcarbazepine Negative Negative 03/26/2025 9:38 AM EDT [facility] Oxycodone Negative Negative 03/26/2025 9:38 AM EDT [facility] Paroxethine Negative Negative 03/26/2025 9:38 AM EDT [facility] Phenobarbital Negative Negative 03/26/2025 9:38 AM EDT [facility] Phentermine Negative Negative 03/26/2025 9:38 AM EDT [facility] Phenytoin Negative Negative 03/26/2025 9:38 AM EDT [facility] Primidone Negative Negative 03/26/2025 9:38 AM EDT [facility] Promethazine Negative Negative 03/26/2025 9:38 AM EDT [facility] Propofol Negative Negative 03/26/2025 9:38 AM EDT [facility] Propranolol Negative Negative 03/26/2025 9:38 AM EDT [facility] Quetiapine Negative Negative 03/26/2025 9:38 AM EDT [facility] Quinine Negative Negative 03/26/2025 9:38 AM EDT [facility] Rantidine Negative Negative 03/26/2025 9:38 AM EDT [facility] Sertraline Negative Negative 03/26/2025 9:38 AM EDT [facility] Spironolactone Negative Negative 03/26/2025 9:38 AM EDT [facility] Tizanidine Negative Negative 03/26/2025 9:38 AM EDT [facility] Topiramate Negative Negative 03/26/2025 9:38 AM EDT [facility] Tramadol Negative Negative 03/26/2025 9:38 AM EDT [facility] Trazadone/ Trazadone metabolite Negative Negative 03/26/2025 9:38 AM EDT [facility] Trimethoprim Negative Negative 03/26/2025 9:38 AM EDT [facility] Valproic Acid Negative Negative 03/26/2025 9:38 AM EDT [facility] Venlafaxine Negative Negative 03/26/2025 9:38 AM EDT [facility] Verapamil Negative Negative 03/26/2025 9:38 AM EDT [facility] Zolpidem Negative Negative 03/26/2025 9:38 AM EDT [facility] Xylazine Negative Negative 03/26/2025 9:38 AM EDT [facility] Urine Urine specimen obtained by clean catch procedure / Unknown Non-blood Collection / Unknown 03/14/2025 6:43 AM EDT 03/14/2025 7:51 AM EDT Narrative [facility] - 03/26/2025 9:38 AM EDT Test performed by: [employer] [address] [place] [address] Portia Maguire MD LAB URINE ORDERABLES Nadia bon Result [facility] [address] [place] [address] * Dexa Bone Density (04/11/2024 12:32 PM EDT) Anatomical Region Laterality Modality L-spine Nuclear Medicine Impressions 04/11/2024 1:01 PM EDT Low bone mass/osteopenia. Using the WHO fracture risk assessment model (FRAX), the highest calculated 10- year probabilities for major osteoporosis-related fracture and hip fracture are 5.2% and 0.5%, respectively. According to National Osteoporosis Foundation and WHO guidelines, treatment for osteoporosis is recommended for those with 20% or higher risk of major fracture or a 3% or higher risk of hip fracture. RECOMMENDATIONS: Based on low bone mass and increased risk of fracture, FDA-approved medical therapy beyond supplemental calcium and vitamin D could be considered. Risk factor modification, as appropriate, is recommended. Timing of follow-up DXA should be determined based on clinical assessment, and may be appropriate in two years to evaluate change in BMD. A follow-up DXA should be performed on the same DXA scanner to allow for direct comparison and calculation of change in BMD. CRITICAL RESULT: No. COMMUNICATION: Per this written report. Drafted by Rex Shepherd MD on 04/11/2024 12:58 PM Final report signed by Rex Shepherd MD on 04/11/2024 1:01 PM Narrative 04/11/2024 1:01 PM EDT CLINICAL INDICATION: Male who is 64 years of age. Liver Transplant Evaluation. TECHNIQUE: Bone mineral density (BMD) testing of the lumbar spine, the left hip, the right hip, and/or the non-dominant forearm was performed using a [employer] A Dual- energy X-ray Absorptiometry (DXA) scanner (software version 13.6.1.2). COMPARISON/CORRELATION: No comparison. No recent correlative imaging. FINDINGS: The technical quality is acceptable. For males 50 years of age or older, the T-scores are used in the assessment. Based on The World Health Organization classification system: Normal bone mass is defined as BMD above normal or equal to/less than one standard deviation below normal; Low bone mass/osteopenia is defined as BMD more than one standard deviation below normal, but less than 2.5 standard deviations below normal; Osteoporosis is defined as BMD equal to/more than 2.5 standard deviations below normal. Lumbar Spine: The BMD of L1-L4 is 1.056 g/cm2, corresponding to a T-score of -0.3. There are sclerotic changes related to osteoarthritis and/or scoliosis that could falsely elevate the measured BMD. Given a greater than 1.0 difference in T-scores between adjacent vertebrae, L1-L2, L4 is also analyzed, and the BMD is 1.023 g/cm2, corresponding to a T-score of -0.6. Left Hip: The BMD of the femoral neck is 0.788 g/cm2, corresponding to a T-score of -1.0 and the BMD of the total hip is 1.019 g/cm2, corresponding to a T-score of -0.1. Right Hip: The BMD of the femoral neck is 0.767 g/cm2, corresponding to a T- score of -1.2 and the BMD of the total hip is 0.979 g/cm2, corresponding to a T-score of -0.4. Procedure Note Rex Shepherd MD - 04/11/2024 CLINICAL INDICATION: Male who is 64 years of age. Liver Transplant Evaluation. TECHNIQUE: Bone mineral density (BMD) testing of the lumbar spine, the left hip, theright hip, and/or the non-dominant forearm was performed using a [employer] A Dual- energy X-ray Absorptiometry (DXA) scanner (software [id number]). COMPARISON/CORRELATION: No comparison. No recent correlative imaging. FINDINGS: The technical quality is acceptable. For males 50 years of age or older, the T-scores are used in theassessment. Based on The World Health Organization classificationsystem: Normal bone mass is defined as BMD above normal or equal to/less than onestandard deviation below normal; Low bone mass/osteopenia is defined as BMD more than one standarddeviation below normal, but less than 2.5 standard deviations belownormal; Osteoporosis is defined as BMD equal to/more than 2.5 standard deviationsbelow normal. Lumbar Spine: The BMD of L1-L4 is 1.056 g/cm2, corresponding to a T-scoreof -0.3. There are sclerotic changes related to osteoarthritis and/orscoliosis that could falsely elevate the measured BMD. Given a greaterthan 1.0 difference in T-scores between adjacent vertebrae, L1-L2, L4 isalso analyzed, and the BMD is 1.023 g/cm2, corresponding to a T-score of-0.6. Left Hip: The BMD of the femoral neck is 0.788 g/cm2, corresponding to aT-score of -1.0 and the BMD of the total hip is 1.019 g/cm2, correspondingto a T-score of - 0.1. Right Hip: The BMD of the femoral neck is 0.767 g/cm2, corresponding to aT-score of -1.2 and the BMD of the total hip is 0.979 g/cm2, correspondingto a T-score of - 0.4. IMPRESSION: Low bone mass/osteopenia. Using the WHO fracture risk assessment model (FRAX), the highestcalculated 10- year probabilities for major osteoporosis-related fractureand hip fracture are 5.2% and 0.5%, respectively. According to NationalOsteoporosis Foundation and WHO guidelines, treatment for osteoporosis isrecommended for those with 20% or higher risk of major fracture or a 3% orhigher risk of hip fracture. RECOMMENDATIONS: Based on low bone mass and increased risk of fracture, FDA-approvedmedical therapy beyond supplemental calcium and vitamin D could beconsidered. Risk factor modification, as appropriate, is recommended. Timing of follow-up DXA should be determined based on clinical assessment,and may be appropriate in two years to evaluate change in BMD. A follow-upDXA should be performed on the same DXA scanner to allow for directcomparison and calculation of change in BMD. CRITICAL RESULT: No. COMMUNICATION: Per this written report. Drafted by Rex Shepherd MD on 04/11/2024 12:58 PM Final report signed by Rex Shepherd MD on 04/11/2024 1:01 PM Delilah Joshua MD IMG DXA PROCEDURES Final R esult * HIV 1 & 2 Antibody/Antigen Screen (04/11/2024 6:27 AM EDT) [facility] HIV 1 & 2 Antibody/Antigen Screen Non Reactive Non Reactive 04/11/2024 7:32 AM EDT [facility] Comment:Screening for HIV 1 & 2 antibodies, and P24 antigen is NONREACTIVE. No confirmatory testing is required. Blood Venous blood specimen / Unknown Venipuncture / Unknown 04/11/2024 6:27 AM EDT 04/11/2024 6:51 AM EDT Delilah Joshua MD LAB BLOOD ORDERABLES Final Result Performing Organization Address City/[facility]/ZIP Co de Phone Number [facility] [address] [place] [address] * Hepatitis C Antibody (08/03/2023 7:30 AM EDT) Hepatitis C Antibody Negative Negative 08/03/2023 8:47 AM EDT [facility] Blood Venous blood specimen / Unknown Venipuncture / Unknown 08/03/2023 7:30 AM EDT 08/03/2023 8:05 AM EDT Bird Kennedy MD LAB BLOOD ORDERABLES Final Resul t [facility] [address] [place] [id number] from Last 3 Months or Most Recently Relevant to Health Maintenance Insurance [employer] Member Subscriber Plan / Payer (Ef fective 2023-Present) Name:David Pop Relation to Subscriber:Self Name:Kiesha, David Trina Payer ID:[id number] (NAIC) Type:Not on file Address: [address] [place] [address] [employer] Care Teams Loader Helper Relationship Specialty Start Date End Date Chris Medel MD [address] [place] [address] PCP - General 03/14/25 Ruma Hernández APRN [address] [facility] [address] [place] [address] Referring Physician Gastroenterology 07/30/23
--- OUTSIDE RECORDS SUMMARY | 2025-04-23 08:32 | XMS_ITS | Encounter Summary ---
Author Organization Healthcare Address [address] [place] [address] Care Team Providers Care Pier Master Assistant Name Role Phone Urban Brantley DO Primary Care Provider [phone] Ruma Hernández ARCHITECT INTERNSHIP Unavailable [phone] Chris Medel MD Primary Care Provider [phone] Encounter Details Date Type Department Care Team (Late st Contact Info) Description 12/30/2023 Orders Only External Location [address] [place] [address] Urban Stafford MD [address] [facility] [address] [place] [id number] Social History Tobacco Use Types Packs/Day Years Used Date Smoking Tobacco: Never Smokeless Tobacco: Never PHQ-2 Answer Date Recorded Patient Health Questionnaire-2 Score 0 10/05/2023 PHQ-2A Answer Date Recorded Patient Health Questionnaire-2 [...] Description 06/13/2025 6:45 AM EDT Clinical Support [facility] [address] [place] [address] 06/13/2025 8:00 AM EDT Office Visit [facility] [address] [place] [address] Portia Maguire MD [address] [facility] [address] [place] [address] 06/13/2025 11:30 AM EDT Appointment Cardiac Imaging [address] [place] [address] 06/13/2025 2:00 PM EDT Appointment [facility] [address] [place] [address] 06/26/2025 3:20 PM EDT Appointment [facility] Bone & Mineral Metabolism [address] [facility], [address] [place] [address] 06/26/2025 3:40 PM EDT Office Visit [facility] Bone & Mineral Metabolism [address] [facility], [address] [place] [address] Moustapha Katz MD [address] [facility] [address] [place] [address] 10/03/2025 12:45 PM EST Office Visit Medical Office Building Urology [address] [facility], [address] [place] [address] Suhail Brock MD [address] [facility] [address] [place] [address] documented as of this encounter Procedures Procedure Name Priority Date/Time Associated Diagnosis Comments CT OUTSIDE IMAGES 12/30/2023 9:37 AM EST documented in this encounter Results * CT OUTSIDE IMAGES (12/30/2023 9:37 AM EST) Anatomical Region Laterality Modality Computed Tomogra phy 12/30/2023 9:37 AM EST Urban Stafford MD IMG CT PROCEDURES Final Result documented in this encounter Visit Diagnoses Not on filedocumented in this encounter Additional Health Concerns Assessment Noted Time A fall risk assessment has been complete d for the patient 10/05/2023 7:47 AM EST A Body Mass Index follow-up plan has been documented for the patient 10/05/2023 11:22 AM EST documented as of this encounter Care Teams Pier Master Assistant Relationship Specialty Start Date End Date Urban Brantley DO [address] [place] [address] PCP - General 07/30/23 03/13/25 Chris Medel MD [address] [place] [address] PCP - General 03/14/25 Ruma Hernández APRN [address] [facility] [address] [place] [address] Referring Physician Gastroenterology 07/30/23 documented as of this encounter
[2025-04-23 08:39] VITALS: BMI 30.4
[2025-04-23 08:47] LABS: Hematocrit 32.9 % (42.0-52.0); Hemoglobin 11.4 g/dL (14.1-18.0)
[2025-04-23 09:25] LABS: Ferritin 103 ng/ml (17.9-464)
--- NOTE | 2025-04-23 09:30 | PC.NURSE ---
ferritin was 103 on AM labs. pt did not want to proceed with phlebotomy and scheduled for next recheck on 05/21/25.
== END 2025-04-23 09:30 | disposition home or self-care (01) ==
LOC: INF 08:26
PROVIDERS: PCP Family Medicine; Visit Provider Internal Medicine
DX: R79.89 Other specified abnormal findings of blood chemistry (principal); E83.19 Other disorders of iron metabolism
CPT/HCPCS: 36415; 82728; 85014; 85018

== ENCOUNTER 2025-04-30 07:32 | Outpatient (CLI) | payer BC, SELFPAY ==
--- OUTSIDE RECORDS SUMMARY | 2025-03-06 16:00 | XMS_ITS | Encounter Summary ---
Author Organization Healthcare Address [address] 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 [phone] Reason for Visit * Reason Comments Follow-up Encounter Details Date Type Department Care Team ([facility] st Contact Info) Description 03/06/2025 4:00 PM EDT Office Visit [facility] [address] [facility] [address], [address] [place] [address] Moustapha Katz MD [address] [facility] [address] [facility] [address] [place] [address] Other osteoporosis without current pathological fracture (Primary Dx); Alcoholic cirrhosis of liver with ascites (CMS/HCC); Iron overload; Obesity (BMI 35.0-39.9 without comorbidity); Vitamin D deficiency; Other ascites Social History Tobacco Use Types Packs/Day Years Used Date Smoking Tobacco: Never Smokeless Tobacco: Former Chew Quit: 11/15/2019 Tobacco Cessation:Counseling Given: Not Answered Comments:not sure of exact date quit chewing but several years ago Alcohol Use Standard Drinks/Week Comments Not Currently 0 (1 standard drink = 0.6 oz pur e alcohol) quit February 2023 Humiliation, Afraid, Rape, and Kick questionnair e Answer Date Recorded Within the last year, have y ou been afraid of your partner or ex-partner? No 02/19/2025 Within the last year, have y ou been humiliated or emotionally abused in other ways by your partner or ex-partner? No Within the last year, have y ou been kicked, hit, slapped, or otherwise physically hurt by your partner or ex-partner? No 02/19/2025 Within the last year, have y ou been raped or forced to have any kind of sexual activity by your partner or ex-partner? No 02/19/2025 Social Connection and Isolation Panel Answer Date Recorded In a typical week, how many times do you talk on the phone with family, friends, or neighbors? More than three times a week 02/19/2025 How often do you get togethe r with friends or relatives? More than three times a week 02/19/2025 How often do you attend chur ch or religion services? More than 4 times per year 02/19/2025 Do you belong to any clubs o r organizations such as adventist groups, unions, fraternal or athletic groups, or school groups? Yes 02/19/2025 How often do you attend meet ings of the clubs or organizations you belong to? More than 4 times per year 02/19/2025 Are you , , di vorced, , never , or living with a partner? 02/19/2025 AUDIT-C Answer Date Recorded Q1: How often do you have a drink containing alcohol? Never 02/19/2025 Q2: How many drinks containi ng alcohol do you have on a typical day when you are drinking? Patient does not drink Q3: How often do you have si x or more drinks on one occasion? Never 02/19/2025 Overall Financial Resource Strain (CARDIA) Answe r Date Recorded How hard is it for you to pa y for the very basics like food, housing, medical care, and heating? Not hard at all 02/19/2025 PHQ-2 Answer Date Recorded Patient Health Questionnaire-2 Score 0 03/14/2025 [facility] Occupat ional Health - Occupational Stress Questionnaire Answer Date Recorded Do you feel stress - tense, restless, nervous, or anxious, or unable to sleep at night because your mind is troubled all the time - these days? Not at all 02/19/2025 Exercise Vital Sign Answer Date Recorde d On average, how many days pe r week do you engage in moderate to strenuous exercise (like a brisk walk)? 0 days 02/19/2025 On average, how many minutes do you engage in exercise at this level? 0 min 02/19/2025 Hunger Vital Sign Answer Date Recorded Within the past 12 months, y ou worried that your food would run out before you got the money to buy more. Never true 02/20/20 25 Within the past 12 months, t he food you bought just didn't last and you didn't have money to get more. Never true 02/19/2025 PRAPARE - Transportation Answer Date Re corded In the past 12 months, has l ack of transportation kept you from medical appointments or from getting medications? No 05/2025 In the past 12 months, has l ack of transportation kept you from meetings, work, or from getting things needed for daily living? No 02/19/2025 PHQ-9 Answer Date Recorded Patient Health Questionnaire-9 Score 0 10/04/2024 Housing Stability Vital Sign Answer Fransico e Recorded In the last 12 months, was t here a time when you were not able to pay the mortgage or rent on time? No 02/19/2025 In the past 12 months, how m any times have you moved where you were living? 0 02/19/2025 At any time in the past 12 m [facility], were you homeless or living in a longterm (including now)? No 02/19/2025 Utilities Answer Date Recorded In the past 12 months has th e [employer], gas, oil, or water company threatened to shut off services in your home? No 02/19/2025 PHQ-2A Answer Date Recorded Patient Health Questionnaire-2 Score 0 10/05/2023 Sex and Gender Information Value Date Recorded Sex Assigned at Not on file Legal Sex Male 8:57 PM EDT Gender Identity Not on file Sexual Orientation Not on file documented as of this encounter Last Filed Vital Signs Vital Sign Reading Time Taken Comments Blood Pressure - - Pulse - - Temperature - - Respiratory Rate - - Oxygen Saturation - - Inhaled Oxygen Concentration - - Weight 92.5 kg (204 lb) 03/06/2025 4:07 PM EDT Height 172.7 cm (5' 8 ) 03/06/2025 4:07 PM EDT Body Mass Index 31.02 03/06/2025 4:07 PM EDT documented in this encounter Functional Status * Over the past 2 weeks, how often have you been bothered by any of the following problems? Question Answer Date of Assessment Author Little interest or pleasure in doing things Not at all 03/14/2025 7:31 AM EDT Audie Atkinson Feeling down, depressed, or hopeless Not at all 03/14/2025 7:31 AM EDT Audie Atkinson Patient Health Questionnaire -2 Score 0 03/14/2025 7:31 AM EDT Audie Atkinson documented as of this encounter Miscellaneous Notes * Progress Notes - Moustapha Katz MD - 03/06/2025 4:00 PM EDT Images from the original note were not included. Telehealth Statement Patient Verification Patient identity has been confirmed using name and date of ? Yes Authorizations and Agreements/Telemedicine Consent sent and consent confirmed? Yes Patient Location: Home/Other Patient confirms they are physically located in [place]? Yes If the patient is not physically located in [place], the provider has confirmed with [facility] thatthe provider is authorized to provide services in patient's stated location? N/A Provider Location: [facility] facility Audio and video or audio only? Audio and video Total visit time: 25 minutes David Pop is a 65 y.o. male who is referred by Chris Wellington MD for evaluationand management of osteoporosis. He is accompanied by his . He is seen for follow up today to review results of DXA and labs and discuss treatment Known to have osteopenia since 04/11/2024 on DXA scan (date 04/11/2024) Interval Hx: He has seen gastroenterology in the interim on 12/13/24, he is starting the process of liver transplant now, he has decompensated liver disease with hepatic enceph, esophageal varices history, no major GI bleed yet from the varices however and ascites. He also ahs iron overload and gets monthly phlebotomies. His Hct from 12/13/24 is 37.8. He just ahd VFA performed today. He was seen in the office today with his . He has been well. He has had no decompensated liver complications, falls or major illnesses but just some viral symptoms over the last weekend. He has been pretty active working around in the house and mending things. He drinks milk with cereal and cookies almost daily, he eats chicken and red meat in diet but does not have protein supplements otherwise, his reported that there was a time when he was on the protein supplementation and then he took a hit and he was really down and low so now he eats with common sense only. Labs were discussedwith them today. 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 MRI showed hepatic iron deposition. No CVA, CAD No cancers, XRT, renal stones, dental issues/scheduled dental procedures, usp corticosteroid; No thyroid/parathyroid/kidney; No RA/organ transplant/GI disease (celiac, IBD, bariatric surgery, short gut, ileostomy)/HIV, meds/prolonged immobility No premature hearing loss, premature dental loss No Breast/ovarian ca PSH: No surgical history of bariatric surgery, joint surgeries/joint replacements, spine fusion, kyphoplasty/vertebroplasty Diet unbalanced, working on diet and trying to ensure protein at each meal Exercise hard to exercise due to motivation and gets tired quickly Takes Vit D denies Takes calcium supplements denies Weight unchanged Smoking: non-smoker ETOH denies Recreational drugs denies Family History: denies Past Medical History: Diagnosis Date Cirrhosis (CMS/HCC) Clotting disorder (CMS/HCC) low platelets Epididymitis treated 11/15/23 Erectile dysfunction Hemochromatosis Hypertension was on medication, but ok now so stopped meds Kidney stone recent scan Pre-liver transplant, listed 07/05/2024 Urinary tract infection several lately Family History Problem Relation Name Age of Onset Hearing loss Mother Sera Diabetes Daughter Gloria Past Surgical History: Procedure Laterality Date HERNIA REPAIR 1979 Social History Tobacco Use Smoking status: Never Smokeless tobacco: Former Types: Chew Quit date: 11/15/2019 Tobacco comments: not sure of exact date quit chewing but several years ago Substance Use Topics Alcohol use: Not Currently Comment: quit February 2023 Current Outpatient Medications Medication Instructions Calcium-Vitamin D (CALTRATE 600 PLUS-VIT D PO) 600 mg, 2 times daily carvedilol (COREG) 3.125 mg, Oral, 2 times daily with meals ergocalciferol (VITAMIN D-2) 50,000 Units, Oral, Weekly furosemide (LASIX) 40 mg, Oral, Daily omeprazole (PRILOSEC) 40 mg, Oral, Daily spironolactone (ALDACTONE) 100 mg, Oral, Daily Xifaxan 550 MG tablet Allergies Allergen Reactions Lisinopril Cough The following portions of the chart were reviewed this encounter and updated as appropriate: Tobacco Allergies Meds Problems Med Hx Surg Hx Fam Hx REVIEW OF SYSTEMS A 14 point ROS was obtained and is negative except as otherwise noted in HPI. PHYSICAL EXAMINATION There were no vitals taken for this visit. Constitutional: No acute distress. Weight 92.5 kg (204 lb) Height 1.727 m (5' 8 ) BMI: Body mass index is 31.02 kg/m??. BSA: Body surface area is 2.11 meters squared. HEENT: normal. Cardiovascular: No JVD, no edema Pulmonary: Normal effort of breathing. Abdominal: no distension Musculoskeletal: Normal extremity movements Skin: No rashes or lesions. Neurologic: No focal deficits Psychiatric: Orientated to person, place, and time: Normal Mood and affect LAB RESULTS Renal Panel: Lab Results Component Value Date GLUCOSE 90 03/14/2025 NA 136 03/14/2025 K 4.1 03/14/2025 CL 108 (H) 03/14/2025 CO2 25 03/14/2025 BUN 10 03/14/2025 CREATININE 0.72 03/14/2025 CREATININE 0.70 03/05/2025 CREATININE 0.70 02/05/2025 CREATININE 0.80 01/09/2025 CREATININE 0.77 12/13/2024 CREATININE 0.70 11/14/2024 EGFR 102.0 03/14/2025 CYSTATIN 1.03 11/14/2024 CALCIUM 8.1 (L) 03/14/2025 PHOS 3.4 11/14/2024 ALBUMIN 2.3 (L) 03/14/2025 MBD: Lab Results Component Value Date PTH 20 11/14/2024 PTH 20 10/04/2024 CALCIUM 8.1 (L) 03/14/2025 CALCIUM 7.5 03/05/2025 CALCIUM 8.6 02/05/2025 CALCIUM 7.8 01/09/2025 CALCIUM 7.7 (L) 12/13/2024 CALCIUM 8.6 (L) 11/14/2024 ICAS 4.7 11/14/2024 ICAS 4.7 10/04/2024 PHOS 3.4 11/14/2024 MG 1.9 11/14/2024 ALBUMIN 2.3 (L) 03/14/2025 ALBUMIN 1.9 03/05/2025 ALBUMIN 2.3 02/05/2025 ALBUMIN 2.4 01/09/2025 ALBUMIN 2.5 (L) 12/13/2024 ALBUMIN 2.8 (L) 11/14/2024 ALBUMIN 2.8 (L) 11/14/2024 ALBUMIN 2.9 (L) 11/14/2024 ALKPHOS 206 (H) 03/14/2025 ALKPHOS 239 03/05/2025 ALKPHOS 179 02/05/2025 ALKPHOS 257 01/09/2025 ALKPHOS 209 (H) 12/13/2024 ALKPHOS 233 (H) 11/14/2024 Nutritional: Lab Results Component Value Date PREALBUMIN 4.2 (L) 11/14/2024 Endocrine profile: Lab Results Component Value Date TESTOS 281.0 11/14/2024 FTPGML 42.2 11/14/2024 TSH 3.90 04/11/2024 CBC: Lab Results Component Value Date WBC 4.88 03/14/2025 RBC 3.43 (L) 03/14/2025 HGB 11.9 (L) 03/14/2025 HCT 35.7 (L) 03/14/2025 PLT 67 (L) 03/14/2025 MCV 104 (H) 03/14/2025 MCH 34.7 (H) 03/14/2025 MCHC 33.3 03/14/2025 RDW 15.8 (H) 03/14/2025 NRBC 0.0 03/14/2025 Iron studies: Lab Results Component Value Date FERRITIN 276 04/11/2024 IRON 86 04/11/2024 TIBC 239 (L) 04/11/2024 Bone Turnover Markers: Lab Results Component Value Date BSAP 39.0 (H) 11/14/2024 CTELOX 361 11/14/2024 NTELOPEPTS 19.6 11/14/2024 OSTEOCALCIN 17 11/14/2024 VITAMIN D 25 Lab Results Component Value Date VITD25 10.9 (L) 11/14/2024 VITD25 11.9 (L) 04/11/2024 VITAMIN D 1,25 Lab Results Component Value Date 25HYDRDT 21.1 11/14/2024 Paraproteinemia Labs: Lab Results Component Value Date PATHINTERP 12/18/2024 The urine protein electrophoretic pattern is consistent with a predominant glomerular proteinuria combined with a lesser degree of tubular proteinuria. Urine protein excretion (935 mg/d) indicates moderate proteinuria. A resident was involved in the service. I attest I examined the relevant preparations for the specimens and confirmed the diagnosis or interpretation. Urine studies: Lab Results Component Value Date CALCIUMUR 28.4 11/14/2024 PHOSUR 45.1 11/14/2024 CREATUR 114 11/14/2024 ASSESSMENT/PLAN David Pop is a 65 y.o. male who presents for follow up and management of osteoporosis/osteopenia. Osteopenic T-scores by DXA No past treatment of osteoporosis Risk factors for bone loss include: Age Poor diet Physical Inactivity Pre-Liver transplant Hypocalcemia Low Vit D Renal Stones GERD Gout Labs show normal kidney function, babs Ca/P, PTH, btm, neg SPEP Marked vit D def Elevated BSAP s/o low turnover osteomalacia Started ergocalciferol - due for DXA - see back in 3 months with labs and DXA - if BSAP still elevated would consider a bone biopsy. Problem List Items Addressed This Visit Digestive Alcoholic cirrhosis of liver Obesity (BMI 35.0-39.9 without comorbidity) Iron overload Vitamin D deficiency Musculoskeletal Other osteoporosis without current pathological fracture - Primary Relevant Orders Dexa Bone Density Vitamin D 25 Hydroxy Osteocalcin by ECIA C-Telopeptide Renal Function Panel, Plasma Bone Specific Alkaline Phosphatase Vitamin D 1,25 Dihydroxy Other Other ascites He has not had any fractures, he is on liver transplant list now, he is osteopenic on DXA, VFA is not suggestive of any silent fracture or worrisome findings. He has low Vit D, his bone turnover markers suggest elevated BSAP and possible lack of adequate mineralization due to low Vit D. So at this time, it will be paramount to ensure adequate Vit D replenishment in his case and repeat bone turnover markers and serum Vit D levels in 6-8 weeks to ensure he is moving in the right direction. We will repeat DXA around March, he can get blood work before that and do a telehealth with us in the interim. Recommendations: Please continue with the Vit D supplementation provided Increase calcium intake in the diet Bone turnover markers and serum Vit D recheck in 6-8 weeks Telehealth in 6-8 weeks with labs DXA around March 2025 and office visit with that Counseled on importance of protein at each meal We will see him back in 6-8 weeks via . Monitoring for drug toxicity: NA for this visit Counseling Documentation: He should continue adequate dietary intake of Ca and take vit D 0044-9104 units daily, he has also been prescribed a Vit D supplement. He is also advised exercises for fall prevention, muscle strengthening and balance exercises. Avoidance of tobacco and alcohol should be observed. He was also counseled to increase his dietary protein intake. The patient and was counseled regarding COUNSELING TOPICS: diagnostic results, prognosis, risks and benefit of treatment options, risk factor reductions, diagnostic impressions, importance of compliance with treatment, oil heaterman nature of condition, and need for continued evaluation and followup. Education provided was verbal counseling. Additional time was spent in care coordination including medical record review. Encounter Timing: I personally spent a total of 25 minutes on this encounter. This time includes face to face with patient, counseling and discussion, lab/result interpretation, coordination of follow-up care, document review. MDM: - was based on the following: History obtained from family Nursing notes reviewed and incorporated Labs reviewed renal panel, vit D, bone turnover markers Past imaging reviewed Old chart reviewed Imaging directly visualized and personally interpreted DXA scan Comorbidities complicating the care of the patient Pre-Liver Transplant, cirrhosis iron overload vitamin-D deficiency identified SDOH that significantly limit treatment ETOH abuse and Distance traveled for medical care Thank you very much for allowing me to participate in the care of David Pop. If you have any questions please do not hesitate to contact me. Orders Placed This Encounter Procedures Dexa Bone Density Please draw labs with transplant appointment Standing Status: Future Expected Date: 06/13/2025 Expiration Date: 09/17/2026 Reason for exam:: osteoporosis Where should this exam be performed?: [facility] ([facility]) Are you able to bear weight on your lower extremities?: Yes Vitamin D 25 Hydroxy Please draw labs with transplant appointment Standing Status: Future Expected Date: 06/13/2025 Expiration Date: 09/17/2026 Release to patient in [facility]: Immediate [1] Osteocalcin by ECIA Please draw labs with transplant appointment Standing Status: Future Expected Date: 06/13/2025 Expiration Date: 09/17/2026 [facility]1] C-Telopeptide Please draw labs with transplant appointment Standing Status: Future Expected Date: 06/13/2025 Expiration Date: 09/17/2026 Release to patient in [facility]: Immediate [1] Renal Function Panel, Plasma Please draw labs with transplant appointment Standing Status: Future Expected Date: 06/13/2025 Expiration Date: 09/17/2026 Release to patient in [facility]: Immediate [1] Bone Specific Alkaline Phosphatase Please draw labs with transplant appointment Standing Status: Future Expected Date: 06/13/2025 Expiration Date: 09/17/2026 Release to patient in [facility]: Immediate Vitamin D 1,25 Dihydroxy Please draw labs with transplant appointment Standing Status: Future Expected Date: 06/13/2025 Expiration Date: 09/17/2026 [facility] Electronically Signed by: Moustapha Katz MD - 03/17/2025 - 12:55 PM documented in this encounter Plan of Treatment Upcoming Encounters Date Type Department Care Team (Late st Contact Info) Description 06/13/2025 6:45 AM EDT Clinical Support [facility] [address] [place] [address] 06/13/2025 8:00 AM EDT Office Visit [facility] [address] [place] [address] Portia Maguire MD [address] [address] [place] [phone] 06/13/2025 11:30 AM EDT Appointment Cardiac Imaging [address] [place] [phone] 06/13/2025 2:00 PM EDT Appointment [facility] [address] [place] [phone] 06/26/2025 3:20 PM EDT Appointment [facility] [address] [facility], [address] [place] [address] 06/26/2025 3:40 PM EDT Office Visit [facility] [address] [facility], [address] [place] [phone] Moustapha Katz MD [address] [facility] [address] [place] [address] 10/03/2025 12:45 PM EST Office Visit Medical Office Building Urology [address] [facility], [address] [place] [address] Suhail Brock MD [address] [address] [place] [phone] Scheduled Orders Name Type Priority Associated Diagnoses Orde r Schedule Dexa Bone Density Imaging Routine Other osteoporosis without current pathological fracture Expected: 06/13/2025 (Approximate), Expires: 09/17/2026 Vitamin D 25 Hydroxy Lab Routine Other osteoporosis without current pathological fracture Expected: 06/13/2025 (Approximate), Expires: 09/17/2026 Osteocalcin by ECIA Lab Routine Other osteoporosis without current pathological fracture Expected: 06/13/2025 (Approximate), Expires: 09/17/2026 C-Telopeptide Lab Routine Other osteoporosis without current pathological fracture Expected: 06/13/2025 (Approximate), Expires: 09/17/2026 Renal Function Panel, Plasma Lab Routine Other osteoporosis without current pathological fracture Expected: 06/13/2025 (Approximate), Expires: 09/17/2026 Bone Specific Alkaline Phosphatase Lab Routine Other osteoporosis without current pathological fracture Expected: 06/13/2025 (Approximate), Expires: 09/17/2026 Vitamin D 1,25 Dihydroxy Lab Routine Other osteoporosis without current pathological fracture Expected: 06/13/2025 (Approximate), Expires: 09/17/2026 documented as of this encounter Visit Diagnoses Diagnosis Other osteoporosis without current pathological fracture- Primary Alcoholic cirrhosis of liver with ascites (CMS/HCC) Iron overload Disorders of iron metabolism Obesity (BMI 35.0-39.9 without comorbidity) Vitamin D deficiency Other ascites documented in this encounter Additional Health Concerns Assessment Noted Time PHQ-9 Depression Total Score: 0 10/04/20 12:32 PM EST A fall risk assessment has been complete d for the patient 03/06/2025 4:07 PM EDT A Body Mass Index follow-up plan has been documented for the patient 03/17/2025 12:56 PM EDT documented as of this encounter Care Teams Underwriting Manager Relationship Specialty Start Date End Date Urban Brantley DO [address] [place] [id number] PCP - General 07/30/23 03/13/25 Ruma Hernández APRN [address] [place] [id number] Referring Physician Gastroenterology 07/30/23 documented as of this encounter
--- OUTSIDE RECORDS SUMMARY | 2025-03-14 06:59 | XMS_ITS | Encounter Summary ---
Author Organization Healthcare Address [address] [place] [address] Care Team Providers Care Stoker Installer Name Role Phone Ruma Hernández COLD ROLLER Unavailable [phone] Chris Medel MD Primary Care Provider [phone] Encounter Details Date Type Department Care Team (Latest Contact Info) Description 03/14/2025 6:59 AM EDT - 03/14/2025 9:15 AM EDT [facility] [address], [address] [place] [address] Nephrolithiasis Discharge Disposition: Home or Self Care [...] week 02/19/2025 How often do you attend [facility] or jain services? More than 4 times per year 02/19/2025 Do you belong to any clubs o r organizations such as orthodox groups, unions, fraternal or athletic groups, or [...] Recorded Patient Health Questionnaire-2 Score 0 03/14/2025 [facility] Occupat ional Health - Occupational [...] any time in the past 12 m [facility], were you homeless or living in a [...] 11 09/13/2024 ergocalciferol (Vitamin D-2) 1.25 MG (93094 UT) capsule Take 1 capsule by mouth [...] Description 06/13/2025 6:45 AM EDT Clinical Support [facility] Transplant Center [address] [place] [address] 06/13/2025 8:00 AM EDT Office Visit [facility] Transplant [place] [address] [place] [address] Portia Maguire MD [address] [place] [address] 06/13/2025 11:30 AM EDT Appointment Cardiac Imaging [address] [place] [address] 06/13/2025 2:00 PM EDT Appointment [facility] [address] [place] [address] 06/26/2025 3:20 PM EDT Appointment [facility] Bone & Mineral Metabolism [address] [place] [address] 06/26/2025 3:40 PM EDT Office Visit [facility] Bone & Mineral Metabolism [address], [address] [place] [address] Moustapha Katz MD [address] [place] [address] 10/03/2025 12:45 PM EST Office Visit Medical Office Building Urology [address], [address] [place] [address] Suhail Brock MD [address] [place] [address] documented as of this encounter [...] documented as of this encounter Care Teams Stoker Installer Relationship Specialty Start Date End Date Chris Medel MD [address] [place] [address] PCP - General 03/14/25 Ruma Hernández APRN [address] [address] Referring Physician Gastroenterology 07/30/23 documented as of this encounter
--- OUTSIDE RECORDS SUMMARY | 2025-03-14 08:00 | XMS_ITS | Encounter Summary ---
Author Organization Healthcare Address [address] [place] [address] Care Team Providers Care Inspector Bicycle Name Role Phone Ruma Hernández PRODUCTION SHIFT SUPERVISOR Unavailable [phone] Chris Medel MD Primary Care Provider [phone] Encounter Details Date Type Department Care Team (Late st Contact Info) Description 03/14/2025 8:00 AM EDT Office Visit [facility] [address] [place] [id number] Zarina Moore, PA [address] [place] [address] Alcoholic cirrhosis of liver with ascites (CMS/HCC) (Primary Dx); Left inguinal hernia; Bilateral leg edema; Cirrhosis of liver with ascites, unspecified hepatic cirrhosis type (CMS/HCC); Other ascites Social History Tobacco Use Types [...] 02/19/2025 How often do you attend chur or moravian services? More than 4 times per year 02/19/2025 Do you belong to any clubs o r organizations such as evangelical groups, unions, fraternal or athletic groups, or [...] Recorded Patient Health Questionnaire-2 Score 0 03/14/2025 [facility] [place] of Occupat ional Health - Occupational Stress [...] any time in the past 12 m [facility], were you homeless or living in a custodial (including now)? No 02/19/2025 Utilities Answer Date [...] Sign Reading Time Taken Comments Blood Pressure 114/69 03/14/2025 7:30 AM EDT Pulse 63 03/14/2025 7:30 AM EDT Temperature 36.9 C (98.5 F) 03/14/2025 7:30 AM EDT Respiratory Rate 15 03/14/2025 7:30 AM EDT Oxygen Saturation 97% 03/14/2025 7:30 AM EDT Inhaled Oxygen Concentration - - Weight 95 kg (209 lb 7 oz) 03/14/2025 7:30 AM ED T Height 172.7 cm (5' 8 ) 03/14/2025 7:30 AM EDT Body Mass Index 31.84 03/14/2025 7:30 AM EDT documented in this encounter Functional Status [...] encounter Miscellaneous Notes * Progress Notes - Zarina Moore PA - 03/14/2025 8:00 AM EDT Images from the original note were not included. Transplant Hepatology Note History of Presenting Illness Mr. 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 Howell with General Surgery on 02/19/25 - deferring surgery. Following with Dr. Katz Tried compression stockings and didn't find them helpful. Furosemide 20 mg daily and spironolactone 50 mg daily, will do a double dose unless it's really bad. No melena, hematemesis, coffee ground emesis. Notes some diarrhea that was yellow/light in color. Lasted for a few days but resolving. 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 MRI showed hepatic iron deposition. Review of Systems A 14 point review of systems negative except for HPI Outpatient Medications Current Outpatient Medications Medication Instructions Calcium-Vitamin D (CALTRATE 600 PLUS-VIT D PO) 600 mg, 2 times daily carvedilol (COREG) 3.125 mg, Oral, 2 times daily with meals ergocalciferol (VITAMIN D-2) 50,000 Units, Oral, Weekly furosemide (LASIX) 40 mg, Oral, Daily omeprazole (PRILOSEC) 40 mg, Oral, Daily spironolactone (ALDACTONE) 100 mg, Oral, Daily Xifaxan 550 MG tablet Allergies Allergies[1] Vaccinations Immunization History Administered Date(s) Administered Hep B, adult 06/02/2023, 06/29/2023, 12/28/2023 Vital Signs Visit Vitals BP 114/69 Pulse 63 Temp 36.9 ??C (98.5 ??F) Resp 15 Ht 1.727 m (5' 8 ) Wt 95 kg (209 lb 7 oz) SpO2 97% BMI 31.84 kg/m?? Smoking Status Never BSA 2.13 m?? Physical Exam General - male in no acute distress. Appears stated age. HEENT - mild scleral icterus, EOMI, atraumatic, normocephalic; ears located midway on head with normal appearance, nose midline without discharge. Cardiovascular - RRR without murmurs, rubs, or gallops; radial pulses 2+ bilaterally; mild LE edemapresent Respiratory - respiratory rate even and non-labored; lungs clear to auscultation in all lung avelar Gastrointestinal - bowel sounds present; soft, non-tender, non distended, resonant to percussion; no ascites noted; no hernias present; liver and spleen not felt Dermatologic - mild jaundice, spider angiomata, or palmar erythema. Warm and dry to palpation. No clubbing MSK - no deformities noted; no edema or erythema of joints visible, normal gait and station Neuro - no asterixis present, oriented to time and place. Psychiatric - pleasant, calm, cooperative. Labs MELD 3.0: 21 at 03/14/2025 6:43 AM MELD-Na: 20 at 03/14/2025 6:43 AM Calculated from: Serum Creatinine: 0.72 mg/dL (Using min of 1 mg/dL) at 03/14/2025 6:43 AM Serum Sodium: 136 mmol/L at 03/14/2025 6:43 AM Total Bilirubin: 4.2 mg/dL at 03/14/2025 6:43 AM Serum Albumin: 2.3 g/dL at 03/14/2025 6:43 AM INR(ratio): 1.9 at 03/14/2025 6:43 AM Age at listin years Sex: Male at 03/14/2025 6:43 AM AFP Lab Results Component Value Date/Time AFP <2.3 03/14/2025 0643 AFP <2.3 09/13/2024 0639 HgB Lab Results Component Value Date/Time HGB 11.9 (L) 03/14/2025 0643 HGB 11.80 03/05/2025 0000 HGB 12.40 02/05/2025 0000 HGB 12.2 (L) 12/13/2024 0637 WBC Lab Results Component Value Date/Time WBC 4.88 03/14/2025 0643 WBC 4.7 03/05/2025 0000 WBC 4.7 02/05/2025 0000 WBC 4.97 12/13/2024 0637 A1c Lab Results Component Value Date/Time HGBA1C 4.6 04/11/2024 0627 Lab Results Component Value Date/Time AST 51 (H) 03/14/2025 0643 ALT 41 03/14/2025 0643 ALKPHOS 206 (H) 03/14/2025 0643 BILITOT 4.2 (H) 03/14/2025 0643 INR 1.9 (H) 03/14/2025 0643 ALBUMIN 2.3 (L) 03/14/2025 0643 ALBUMIN 2.8 (L) 11/14/2024 1012 CREATININE 0.72 03/14/2025 0643 AFP <2.3 03/14/2025 0643 Lab Results Component Value Date/Time HGB 11.9 (L) 03/14/2025 0643 WBC 4.88 03/14/2025 0643 PLT 67 (L) 03/14/2025 0643 Hepatitis Serologies Lab Results Component Value Date/Time HEPBSAG Negative 08/03/2023 0730 HECG Negative 08/03/2023 0730 HAG Positive (A) 08/03/2023 0730 HEPBSAB Negative 08/03/2023 0730 Work-up Labs Lab Results Component Value Date/Time FERRITIN 276 04/11/2024 06 TIBC 239 (L) 04/11/2024 06 AAT 77 (L) 04/11/2024 06 CERULOPLSM 25 04/11/2024 06 HGBA1C 4.6 04/11/2024 06 CHOL 197 04/11/2024 06 LDLCALC 109 (H) 04/11/2024 06 HDL 67 04/11/2024 06 TRIG 117 04/11/2024 06 TSH 3.90 04/11/2024 06 Assessment and Plan Problem List Items Addressed This Visit Alcoholic cirrhosis of liver - Primary Left inguinal hernia Bilateral leg edema Relevant Medications furosemide (Lasix) 20 MG tablet spironolactone (Aldactone) 50 MG tablet Other ascites Relevant Medications furosemide (Lasix) 20 MG tablet spironolactone (Aldactone) 50 MG tablet Other Visit Diagnoses Cirrhosis of liver with ascites, unspecified hepatic cirrhosis type (CMS/HCC) Relevant Medications furosemide (Lasix) 20 MG tablet spironolactone (Aldactone) 50 MG tablet omeprazole (PriLOSEC) [address] capsule Mr. 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 Getting monthly phlebotomy, last was 5 months ago based on labs, goes monthly for labs --discussed MELD 21 and liver allocation, MELD score meaning --remain listed for OLT --avoid NSAIDs, SHAUN-I/ARBs, CCBs, alcohol, can take tylenol <2000 mg/day # Ascites - well controlled # LE edema - mild to moderate No H/O SBP or LVP current diuretic regimen Lasix 20mg/d and Aldactone 50mg/d but takes an extra dose of each as needed --continue low Na diet --continue furosemide 20 mg daily and spironolactone 50 mg daily #Hepatic encephalopathy- controlled. Has lactulose PRN On xifaxan 550 mg BID # H/O esophageal varices/ no prior history of bleeding varices Had gr 2 EV. had stopped carvedilol 3.125mg bid due to weakness/tremors/shaking, but also just had first phlebotomy, diet changes/restriction. Carvedilol was restarted in 09/2023, and he currently takes 3.125 mg BID. BP and HR have been stable If SBP <100 and dizziness occurs, advised to decrease carvedilol to once daily # HCC surveillance- US liver screen 09/13/2024: No liver lesions. AFP normal today --repeat HCC surveillance scheduled later today # Renal stones Follows with urology, current plan is monitoring Health maintenance- Immune for Hep A and hepatitis B 03/31/23 colonoscopy - 2 5-8mm transverse colon polyps; 15mm sigmoid colon polyp; 4-6 sigmoid colon polyps; 1 10mm sigmoid colon polyp. 5mm descending colon polyp; diverticulosis in sigmoid,descendingcolon. Internal hemorrhoids. Continue monthly labs RTC in 3 months. A total of 45 minutes was spent on this patient encounter - educating patient, interpreting and discussing labs and imaging, impressions, prognosis, risks/benefits of current treatment options, risk factor reduction, instructions for management, and documentation. Care coordination provided included review and summary of medical records and additional diagnostic research, phone collaboration and consult with peers. [1] Allergies Allergen Reactions Lisinopril Cough documented in this encounter Plan of Treatment Upcoming Encounters Date Type Department Care Team (Late st Contact Info) Description 06/13/2025 6:45 AM EDT Clinical Support [facility] [address] [place] [address] 06/13/2025 8:00 AM EDT Office Visit [facility] [address] [place] [address] Portia Maguire MD [address] [place] [address] 06/13/2025 11:30 AM EDT Appointment Cardiac Imaging [address] [place] [address] 06/13/2025 2:00 PM EDT Appointment [facility] [address] [place] [address] 06/26/2025 3:20 PM EDT Appointment [facility] [place] [facility] [address] [place] [address] 06/26/2025 3:40 PM EDT Office Visit [facility] [place] [facility] [address], [address] [place] [address] Moustapha Katz MD [address] [facility] [address] [place] [address] 10/03/2025 12:45 PM EST Office Visit Medical Office Building Urology [address], [address] [place] [address] Suhail Brock MD [address] [facility] [address] [place] [address] documented as of this encounter Visit Diagnoses Diagnosis Alcoholic cirrhosis of liver with ascites (CMS/HCC)- Primary Left inguinal hernia Inguinal hernia without mention of obstruction or gangrene, unilateral or unspecified, (not specified as recurrent) Bilateral leg edema Edema Cirrhosis of liver with ascites, unspecified hepatic cirrhosis type (CMS/HCC) Other ascites documented in this encounter Additional Health Concerns Assessment Noted Time PHQ-9 Depression Total Score: 0 10/04/20 24 12:32 PM EST A fall risk assessment has been complete d for the patient 03/14/2025 7:31 AM EDT A Body Mass Index follow-up plan has been documented for the patient 03/14/2025 10:10 AM EDT documented as of this encounter Care Teams Inspector Bicycle Relationship Specialty Start Date End Date Chris Medel MD [address] [place] [address] PCP - General 03/14/25 Ruma Hernández APRN [id number] [place], [place] [id number] Referring Physician Gastroenterology 07/30/23 documented as of this encounter
--- OUTSIDE RECORDS SUMMARY | 2025-03-14 09:16 | XMS_ITS | Encounter Summary ---
Author Organization Healthcare Address [address] [place] [address] Care Team Providers Care Assistant At Surgery Name Role Phone Ruma Hernández WOOD FLOOR REFINISHER Unavailable [phone] Chris Medel MD Primary Care Provider [phone] Reason for Referral * Imaging (Routine) - Closed Specialty Diagnoses / Procedures Referred By Gianna reyes Referred To Contact Radiology Diagnoses Pre-liver transplant, listed Procedures CT Liver Portia Maguire MD [address] [address] Phone: tel: fax: Referral ID Status Reason Start Date Expiration Date Visits Re quested Visits Authorized [id number] Closed 12/19/2024 06/20/2026 1 1 Reason for Visit * Imaging (Routine) - Closed Specialty Diagnoses / Procedures Referred By Gianna reyes Referred To Contact Radiology Diagnoses Pre-liver transplant, listed Procedures CT Liver Portia Maguire MD [address] [address] Phone: tel: fax: Referral ID Status Reason Start Date Expiration Date Visits Re quested Visits Authorized [id number] Closed 12/19/2024 06/20/2026 1 1 Encounter Details Date Type Department Care Team (Latest Contact Info) Description 03/14/2025 9:16 AM EDT - 03/14/2025 11:59 PM EDT Hospital Encounter [facility] [address] [place] [phone] Pre-liver transplant, listed Discharge Disposition: Home or Self Care Social [...] How often do you attend chur or faith services? More than 4 times per year 02/19/2025 Do you belong to any clubs o r organizations such as spiritism groups, unions, fraternal or athletic groups, or [...] Recorded Patient Health Questionnaire-2 Score 0 03/14/2025 [facility] of Occupat ional [facility] - Occupational Stress Questionnaire Answer Date Recorded [...] in the past 12 m [facility], were you homeless or living in a m[facility] (including now)? No 02/19/2025 Utilities Answer Date Recorded In the past 12 months has e electric, gas, oil, or water company [...] day with meals. 60 tablet 11 09/13/2024 5 ergocalciferol (Vitamin D-2) 1.25 MG (27574 UT) capsule Take 1 capsule by mouth [...] by mouth daily. 180 each 3 03/14/2025 Xifaxan 550 MG tablet 01/15/2025 documented as of this encounter Plan of Treatment Upcoming Encounters Date Type Department Care Team (Late st Contact Info) Description 06/13/2025 6:45 AM EDT Clinical Support [facility] [place] [address] [facility] [address] [place] [address] 06/13/2025 8:00 AM EDT Office Visit [facility] [place] [address] [facility] [address] [place] [address] Portia Maguire MD [address] [facility] [address] [place] [address] 06/13/2025 11:30 AM EDT Appointment Cardiac Imaging [address] [place] [address] 06/13/2025 2:00 PM EDT Appointment [facility] [address] [place] [address] 06/26/2025 3:20 PM EDT Appointment [facility] Bone & Mineral Metabolism [address] [facility], [address] [place] [address] 06/26/2025 3:40 PM EDT Office Visit [facility] Bone & Mineral Metabolism [address], [address] [place] [address] Moustapah Katz MD [address] [facility] [address] [place] [address] 10/03/2025 12:45 PM EST Office Visit Medical Office Building Urology [address] [facility], [address] [place] [address] Suhail Brock MD [address] [facility] [address] [place] [address] documented as of this encounter Procedures Procedure Name Priority Date/Time Associated Diagnosis Comments CT ABDOMEN PELVIS W AND WO IV CONTRAST Routine 03/14/2025 10:35 AM EDT Pre-liver transplant, listed documented in this encounter Results * CT Liver (03/14/2025 10:35 AM EDT) Anatomical Region Laterality Modality Abdomen, Pelvis Computed Tomogra phy Impressions 03/14/2025 11:54 AM EDT Focal Hepatic Observations: LI-RADS Negative Cirrhotic morphology of the liver with sequela of portal hypertension including borderline splenomegaly, portosystemic collaterals, portal colopathy and small abdominopelvic ascites. Chronic left renal pelvic calculi and inflammatory changes. CRITICAL RESULT: No. COMMUNICATION: Per this written report. LI-RADS M = Probably or definitely malignant but not HCC specific LI-RADS TI-V = Definitely tumor in vein LI-RADS 5 = Definitely hepatocellular carcinoma (concordant with OPTN*) LI-RADS 4 = Probably hepatocellular carcinoma LI-RADS 3 = Intermediate probability for hepatocellular carcinoma LI-RADS 2 = Probably benign LI-RADS 1 = Definitely benign LI-RADS NC = Not categorized secondary to image degradation or omission LI-RADS TR Nonviable - Treated, probably or definitely not viable LI-RADS TR Equivocal - Treated, equivocally viable LI-RADS TR Nonprogressing - Treated with radiation, masslike enhancement, which is stable or decreased in size over time after LRT LI-RADS TR Viable - Treated, probably or definitely viable LI-RADS TR Nonevaluable - Cannot be categorized due to image degradation or omission NOTE: LI-RADS categories should be interpreted in the context of other available data, such as biomarkers and the patient's prior probability of developing or having hepatocellular carcinoma. The LI-RADS classification of liver lesions has been adopted to standardize CT and MRI scan reporting in patients at risk for hepatocellular carcinoma. CT/MRI LI- RADS and US LI-RADS are consistent with and integrated into the [place] [employer] for the Study of Liver Diseases (AASLD) 2018 hepatocellular carcinoma (HCC) clinical practice guidance. LI-RADS criteria and documentation are available online at www.acr.org/Quality-Safety/Resources/LIRADS. This report utilizes LI-RADS version 2018 with updated Treatment Response Assessment (TRA) v2024. *OPTN and LI-RADS criteria for definite HCC are identical except for: 10-19 mm observations with nonrim APHE + nonperipheral washout but without enhancing capsule or threshold growth. Implication: Some LR-5 observations do not count as OPTN 5. By electronically signing this report, I, the attending physician, attest that I have personally reviewed the images/data for the above examination(s) and agree with the final edited report. Drafted by Mary Mason MD on 03/14/2025 11:10 AM Final report signed by Arturo Wasserman MD on 03/14/2025 11:54 AM Narrative 03/14/2025 11:54 AM EDT CLINICAL INDICATION: HCC surveillance TECHNIQUE: Multiple axial CT images were obtained of abdomen and pelvis following administration of IV contrast, Omnipaque 350, 150 mL. Images of the abdomen were obtained during arterial, portal venous, and delayed phases. The pelvis was imaged in portal venous phase. Reformatted images in the coronal and sagittal planes were generated from the axial data set to facilitate diagnostic accuracy. Precontrast axial CT images of the abdomen were also obtained. TOTAL DLP (Dose-Length Product): 1373.67 mGy.cm. Please note: The reported value represents the total of one or more individual components during the CT acquisition on this date and at this time, and as such, the same value may appear in more than one CT report depending on the interpreting/reporting physicians. Examination meets LI-RADS technical recommendations. COMPARISON: Liver ultrasound 09/13/2024 CT abdomen 05/21/2024 FINDINGS: Liver, Gallbladder, Biliary Tract: Cirrhotic morphology of the liver. No suspicious focal liver lesions. Scattered calcified granulomas. Cholelithiasis. No biliary ductal dilatation. Hepatic Vasculature: Hepatic arterial anatomy is standard. The portal veins are patent, and demonstrate a similar diminutive appearance with a diameter of 7 mm. There are perisplenic and periesophageal varices. Extrahepatic Findings: Spleen: The spleen is on the upper limits of normal in size measuring 13 cm in the craniocaudal dimension. Other Solid Abdominal Organs: Homogenous enhancement of the pancreatic parenchyma without ductal dilatation. Normal adrenal glands. Symmetric renal enhancement. Left renal pelvic calculi have in size and number, now measuring up to 19 mm. There is chronic left pelvic dilatation and inflammatory changes. GI Tract/Mesentery/Peritoneum: The large and small bowel appear normal in caliber. There is mild wall thickening of the right colon. Mild diffuse mesenteric edema. No suspicious peritoneal/mesenteric findings. Pelvic Viscera: The urinary bladder is moderately decompressed. Prostatic calcifications. No suspicious pelvic mass lesions. Ascitic fluid travels along the left tunica vaginalis resulting in left hydrocele. Lymph Nodes: Prominent lymph nodes are noted at the lydia hepatis, likely reactive. Free Fluid: Small volume abdominopelvic ascites. Musculoskeletal: No aggressive or suspicious findings. Lower Chest: Mild scarring in the middle lobe and lingula. Procedure Note Arturo Wasserman MD - 03/14/2025 CLINICAL INDICATION: HCC surveillance TECHNIQUE: Multiple axial CT images were obtained of abdomen and pelvis followingadministration of IV contrast, Omnipaque 350, 150 mL. Images of theabdomen were obtained during arterial, portal venous, and delayed phases.The pelvis was imaged in portal venous phase. Reformatted images in thecoronal and sagittal planes were generated from the axial data set tofacilitate diagnostic accuracy. Precontrast axial CT images of the abdomenwere also obtained. TOTAL DLP (Dose-Length Product): 1373.67 mGy.cm. Please note: The reportedvalue represents the total of one or more individual components during theCT acquisition on this date and at this time, and as such, the same valuemay appear in more than one CT report depending on theinterpreting/reporting physicians. Examination meets LI-RADS technical recommendations. COMPARISON: Liver ultrasound 09/13/2024 CT abdomen 05/21/2024 FINDINGS: Liver, Gallbladder, Biliary Tract: Cirrhotic morphology of the liver. Nosuspicious focal liver lesions. Scattered calcified granulomas.Cholelithiasis. No biliary ductal dilatation. Hepatic Vasculature: Hepatic arterial anatomy is standard. The portalveins are patent, and demonstrate a similar diminutive appearance with adiameter of 7 mm. There are perisplenic and periesophageal varices. Extrahepatic Findings: Spleen: The spleen is on the upper limits of normal in size measuring 13cm in the craniocaudal dimension. Other Solid Abdominal Organs: Homogenous enhancement of the pancreaticparenchyma without ductal dilatation. Normal adrenal glands. Symmetricrenal enhancement. Left renal pelvic calculi have in size and number, nowmeasuring up to 19 mm. There is chronic left pelvic dilatation andinflammatory changes. GI Tract/Mesentery/Peritoneum: The large and small bowel appear normal incaliber. There is mild wall thickening of the right colon. Mild diffusemesenteric edema. No suspicious peritoneal/mesenteric findings. Pelvic Viscera: The urinary bladder is moderately decompressed. Prostaticcalcifications. No suspicious pelvic mass lesions. Ascitic fluid travelsalong the left tunica vaginalis resulting in left hydrocele. Lymph Nodes: Prominent lymph nodes are noted at the lydia hepatis, likelyreactive. Free Fluid: Small volume abdominopelvic ascites. Musculoskeletal: No aggressive or suspicious findings. Lower Chest: Mild scarring in the middle lobe and lingula. IMPRESSION: Focal Hepatic Observations: LI-RADS Negative Cirrhotic morphology of the liver with sequela of portal hypertensionincluding borderline splenomegaly, portosystemic collaterals, portalcolopathy and small abdominopelvic ascites. Chronic left renal pelvic calculi and inflammatory changes. CRITICAL RESULT: No. COMMUNICATION: Per this written report. LI-RADS M = Probably or definitely malignant but not HCC specific LI-RADS TI-V = Definitely tumor in vein LI-RADS 5 = Definitely hepatocellular carcinoma (concordant with OPTN*) LI-RADS 4 = Probably hepatocellular carcinoma LI-RADS 3 = Intermediate probability for hepatocellular carcinoma LI-RADS 2 = Probably benign LI-RADS 1 = Definitely benign LI-RADS NC = Not categorized secondary to image degradation or omission LI-RADS TR Nonviable - Treated, probably or definitely not viable LI-RADS TR Equivocal - Treated, equivocally viable LI-RADS TR Nonprogressing - Treated with radiation, masslike enhancement,which is stable or decreased in size over time after LRT LI-RADS TR Viable - Treated, probably or definitely viable LI-RADS TR Nonevaluable - Cannot be categorized due to image degradationor omission NOTE: LI-RADS categories should be interpreted in the context of otheravailable data, such as biomarkers and the patient's prior probability ofdeveloping or having hepatocellular carcinoma. The LI-RADS classificationof liver lesions has been adopted to standardize CT and MRI scan reportingin patients at risk for hepatocellular carcinoma. CT/MRI LI-RADS and USLI-RADS are consistent with and integrated into the [place] Associationfor the Study of Liver Diseases (AASLD) 2018 hepatocellular carcinoma(HCC) clinical practice guidance. LI-RADS criteria and documentation areavailable online at www.acr.org/Quality-Safety/Resources/LIRADS. Thisreport utilizes LI-RADS version 2018 with updated Treatment ResponseAssessment (TRA) v2024. *OPTN and LI-RADS criteria for definite HCC are identical except for:10-19 mm observations with nonrim APHE + nonperipheral washout butwithout enhancing capsule or threshold growth. Implication: Some LR-5observations do not count as OPTN 5. By electronically signing this report, I, the attending physician, attestthat I have personally reviewed the images/data for the aboveexamination(s) and agree with the final edited report. Drafted by Mary Mason MD on 03/14/2025 11:10 AM Final report signed by Arturo Wasserman MD on 03/14/2025 11:54 AM Portia Maguire MD IMG CT PROCEDURES Final R esult documented in this encounter Visit Diagnoses Diagnosis Pre-liver transplant, listed documented in this encounter Administered Medications Inactive Administered Medications - up to 3 most recent administrations Medication Order MAR Action Action Date Dose Rate Site barium sulfate (Readi-Cat 2) 2 % suspension 450 mL 450 mL, Oral, Once in imaging, 1 dose, Starting on Wed03/14/25 at 0923, Until Wed03/14/25 at 1032, Routine, Imaging Protocol Orders Given 03/14/2025 10:32 AM EDT 450 mL iohexol (OMNIPaque) 350 MG/ML injection 125 mL 125 mL, Intravenous, Once in imaging, 1 dose, Starting on Wed03/14/25 at 0923, Until Wed03/14/25 at 1023, Routine, Imaging Protocol Orders Given 03/14/2025 10:23 AM EDT 150 mL documented in this encounter Additional Health Concerns Assessment Noted Time PHQ-9 Depression Total Score: 0 10/04/20 24 12:32 PM EST A fall risk assessment has been complete d for the patient 03/14/2025 7:31 AM EDT A Body Mass Index follow-up plan has been documented for the patient 03/14/2025 10:10 AM EDT documented as of this encounter Care Teams Assistant At Surgery Relationship Specialty Start Date End Date Chris Medel MD [address] [place] [address] PCP - General 03/14/25 Ruma Hernández APRN [address] [facility] [address] [place] [address] Referring Physician Gastroenterology 07/30/23 documented as of this encounter
--- OUTSIDE RECORDS SUMMARY | 2025-04-30 07:35 | XMS_ITS | Encounter Summary ---
Author Organization Healthcare Address [address] [place] [address] Care Team Providers Care Laboratory Sample Carrier Name Role Phone Urban Brantley Primary Care Provider [phone] HernándezRuma Freddie BLINDSTITCH MACHINE OPERATOR Unavailable [phone] Encounter Details Date Type Department Care Team [...] How often do you attend chur or voodoo services? More than 4 times per year 02/19/2025 Do you belong to any clubs o r organizations such as restorationist groups, unions, fraternal or athletic groups, or [...] Recorded Patient Health Questionnaire-2 Score 0 12/13/2024 [facility] Occupat ional Health [...] AM EDT Clinical Support [facility] [address] [place] [address] 06/13/2025 8:00 AM EDT Office Visit [facility] [address] [place] [address] Portia Mgauire MD [address] [place] [address] 06/13/2025 11:30 AM EDT Appointment Cardiac Imaging [address] [place] [address] 06/13/2025 2:00 PM EDT Appointment [facility] [address] [place] [address] 06/26/2025 3:20 PM EDT Appointment [facility] Bone & Mineral Metabolism [address] [facility], [address] [place] [address] 06/26/2025 3:40 PM EDT Office Visit [facility] Bone & Mineral Metabolism [address] [facility], [address] [place] [address] Moustapha Katz MD [address] [facility] [address] [place] [address] 10/03/2025 12:45 PM EST Office Visit Medical Office Building Urology [address] [facility], [address] [place] [address] Suhail Brock MD [address] [facility] [address] [place] [address] documented as of this encounter [...] documented as of this encounter Care Teams Laboratory Sample Carrier Relationship Specialty Start Date End Date Urban Brantley DO [address] [place] [address] PCP - General 07/30/23 03/13/25 Ruma Hernández APRN [address] [place] [address] [address] [place] [address] Referring Physician Gastroenterology 07/30/23 documented as of this encounter
--- OUTSIDE RECORDS SUMMARY | 2025-04-30 07:35 | XMS_ITS | Encounter Summary ---
Author Organization Healthcare Address [address] [place] [address] Care Team Providers Care Insolvency Practitioner Name Role Phone Ruma Hernández FURNITURE ARRANGER Unavailable [phone] Chris Medel MD Primary Care Provider [phone] Encounter Details Date Type Department Care Team (Late st Contact Info) Description 04/03/2025 Results Follow-Up [facility] [address] [place] [address] Meaghan Le, RN [id number] [address] [place] [id number] Social History Tobacco Use Types Packs/Day Years [...] week 02/19/2025 How often do you attend [facility] or yazidism services? More than 4 times per year [...] Recorded Patient Health Questionnaire-2 Score 0 03/14/2025 [facility] Occup[facility] ional Health - Occupational [...] any time in the past 12 m [facility], were you homeless or living in a fpc (including now)? No 02/19/2025 Utilities Answer Date [...] Description 06/13/2025 6:45 AM EDT Clinical Support [facility] [place] [address] [facility] [address] [place] [address] 06/13/2025 8:00 AM EDT Office Visit [facility] [place] [address] [facility] [address] [place] [address] Portia Maguire MD [address] [facility] [address] [place] [address] 06/13/2025 11:30 AM EDT Appointment Cardiac Imaging [address] [place] [address] 06/13/2025 2:00 PM EDT Appointment [facility] [address] [place] [address] 06/26/2025 3:20 PM EDT Appointment Professional [facility] Bone & Mineral Metabolism [address] [facility], [address] [place] [address] 06/26/2025 3:40 PM EDT Office Visit [facility] Bone & Mineral Metabolism [address] [facility], [address] [place] [address] Moustapha Katz MD [address] [facility] [address] [place] [address] 10/03/2025 12:45 PM EST Office Visit Medical Office Building Urology [address] [facility], [address] [place] [address] Suhail Brock MD [address] [facility] [address] [place] [address] documented as of this encounter [...] documented as of this encounter Care Teams Insolvency Practitioner Relationship Specialty Start Date End Date Chris Medel MD [address] [place], [place] [address] PCP - General 03/14/25 Ruma Hernández APRN [address] [address] Referring Physician Gastroenterology 07/30/23 documented as of this encounter
--- OUTSIDE RECORDS SUMMARY | 2025-04-30 07:35 | XMS_ITS | Encounter Summary ---
Author Organization Healthcare Address [address] [place] [address] Care Team Providers Care Attache Name Role Phone Ruma Hernández FURNACE CHECKER Unavailable [phone] Chris Medel MD Primary Care Provider [phone] Encounter Details Date Type Department Care Team [...] often do you attend chur ch or alevism services? More than 4 times per year 02/19/2025 Do you belong to any clubs o r organizations such as latter day groups, unions, fraternal or athletic groups, or [...] [facility] - Occupational [...] any time in the past 12 m [facility], were you homeless or living [...] Description 06/13/2025 6:45 AM EDT Clinical Support [facility] [place] [address] [place] [address] 06/13/2025 8:00 AM EDT Office Visit [facility] [place] [address] [place] [address] Portia Maguire MD [address] [facility] [address] [place] [address] 06/13/2025 11:30 AM EDT Appointment Cardiac Imaging [address] [place] [address] 06/13/2025 2:00 PM EDT Appointment [facility] [address] [place] [address] 06/26/2025 3:20 PM EDT Appointment Professional [facility] Bone & Mineral Metabolism [address] [facility], [address] [place] [address] 06/26/2025 3:40 PM EDT Office Visit [facility] Bone & Mineral Metabolism [address] [facility], [address] [place] [address] Moustapha Katz MD [address] [facility] [address] [place] [address] 10/03/2025 12:45 PM EST Office Visit Medical Office Building Urology [address] [facility], [address] [place] [address] Suhail Brock MD [address] [facility] [address] [place] [address] documented as of this encounter [...] documented as of this encounter Care Teams Attache Relationship Specialty Start Date End Date Chris Medel MD [address] [place] [address] PCP - General 03/14/25 Ruma Hernández APRN [address] [place] [address] Referring Physician Gastroenterology 07/30/23 documented as of this encounter
--- OUTSIDE RECORDS SUMMARY | 2025-04-30 07:35 | XMS_ITS | Encounter Summary ---
Author Organization Healthcare Address [address] [place] [address] Care Team Providers Care Customer Assistance Representative Name Role Phone KaronUrban Yael CAMARA Primary Care Provider [phone] Ruma Hernández GLASS SETTER Unavailable [phone] Chris Medel MD Primary Care Provider [phone] Encounter Details Date Type Department Care Team (Late st Contact Info) Description 02/06/2025 Results Follow-Up [facility] Transplant Center [address] [facility] [address] [place] [address] Meaghan Le, RN [facility] LIVER [id number] [address] [id number] Social History Tobacco Use Types Packs/Day Years [...] How often do you attend chur or judaism services? More than 4 times per year 02/19/2025 Do you belong to any clubs o r organizations such as jainism groups, unions, fraternal or athletic groups, or [...] Recorded Patient Health Questionnaire-2 Score 0 03/14/2025 [facility] - Occupational [...] any time in the past 12 m [facility], were you homeless or living in a usp (including now)? No 02/19/2025 Utilities Answer Date Recorded In the past 12 months has th e [employer], gas, oil, or water company threatened to [...] 06/13/2025 6:45 AM EDT Clinical Support [facility] Transplant [place] [address] [place] [address] 06/13/2025 8:00 AM EDT Office Visit [facility] Trans[facility] [address] [facility] [address] [place] [address] Portia Maguire MD [address] [facility] [address] [place] [address] 06/13/2025 11:30 AM EDT Appointment Cardiac Imaging [address] [place] [address] 06/13/2025 2:00 PM EDT Appointment [facility] Radiology [address] [place] [address] 06/26/2025 3:20 PM EDT Appointment [facility] Bone & Mineral Metabolism [address] [facility] [address] [facility], [address] [place] [address] 06/26/2025 3:40 PM EDT Office Visit [facility] Bone & Mineral Metabolism [address], [address] [place] [address] Moustapha Katz MD [address] [facility] [address] [place] [address] 10/03/2025 12:45 PM EST Office Visit Medical Office Building Urology [address], [address] [place] [address] Suhail Brock MD [address] [facility] [address] [place] [address] documented as of this encounter [...] documented as of this encounter Care Teams Customer Assistance Representative Relationship Specialty Start Date End Date Urban Brantley DO [address] [place] [address] PCP - General 07/30/23 03/13/25 Chris Medel MD [address] [place] [address] PCP - General 03/14/25 Ruma Hernández APRN [address] [place], [place] [id number] Referring Physician Gastroenterology 07/30/23 documented as of this encounter
--- OUTSIDE RECORDS SUMMARY | 2025-04-30 07:35 | XMS_ITS | Encounter Summary ---
Author Organization Healthcare Address [address] [place] [address] Care Team Providers Care Photographs Curator Name Role Phone Urban Brantley DO Primary Care Provider [phone] Ruma Hernández HOTEL REGISTRATION CLERK Unavailable [phone] Chris Medel MD Primary Care Provider [phone] Encounter Details Date Type Department Care Team (Late st Contact Info) Description 12/30/2023 Orders Only External Location [address] [place] [address] Urban Stafford MD [address] [facility] [address] [place] [id number] Social History Tobacco Use Types Packs/Day Years [...] Description 06/13/2025 6:45 AM EDT Clinical Support [facility] Transplant Center [address] [place] [address] 06/13/2025 8:00 AM EDT Office Visit [facility] Transplant Center [address] [place] [address] Portia Maguire MD [address] [facility] [address] [place] [address] 06/13/2025 11:30 AM EDT Appointment Cardiac Imaging [address] [place] [address] 06/13/2025 2:00 PM EDT Appointment [facility] Radiology [address] [place] [address] 06/26/2025 3:20 PM EDT Appointment [facility] Mineral Metabolism [address] [facility], [address] [place] [address] 06/26/2025 3:40 PM EDT Office Visit [facility] [address] [facility], [address] [place] [address] Moustapha Katz MD [address] [facility] [address] [place] [address] 10/03/2025 12:45 PM EST Office Visit Medical Office Building Urology [address] [facility], [address] [place] [address] Suhail Brock MD [address] [facility] [address] [place] [address] documented as of this encounter [...] documented as of this encounter Care Teams Photographs Curator Relationship Specialty Start Date End Date Urban Brantley DO [address] [place] [address] PCP - General 07/30/23 03/13/25 Chris Medel MD [address] [place] [address] PCP - General 03/14/25 Ruma Hernández APRN [address] [facility] [address] [place] [address] Referring Physician Gastroenterology 07/30/23 documented as of this encounter
--- OUTSIDE RECORDS SUMMARY | 2025-04-30 07:35 | XMS_ITS | Encounter Summary ---
Author Organization Healthcare Address [address] [place] [address] Care Team Providers Care Sous Chef Name Role Phone KaronUrban Yael CAMARA Primary Care Provider Ruma Hernández HOT STRIP MILL INSPECTOR Unavailable [phone] Chris Medel MD Primary Care Provider [phone] Encounter Details Date Type Department Care Team (Late st Contact Info) Description 03/05/2025 Results Follow-Up [facility] Transplant Center [address] [facility] [address] [place] [address] Meaghan Le, RN [facility] LIVER [id number] [address] [id number] Social History Tobacco Use Types Packs/Day Years [...] How often do you attend chur or cheondoism services? More than 4 times per year 02/19/2025 Do you belong to any clubs o r organizations such as restoration groups, unions, fraternal or athletic groups, or [...] Recorded Patient Health Questionnaire-2 Score 0 12/13/2024 [facility] [...] any time in the past 12 m [facility], were you homeless or living in a jail (including now)? No 02/19/2025 Utilities Answer Date Recorded In the past 12 months has th e [employer], gas, oil, or water [employer] threatened to shut off services in your [...] 6:45 AM EDT Clinical Support [facility] Transplant [place] [address] [facility] [address] [place] [address] 06/13/2025 8:00 AM EDT Office Visit [facility] Transplant [place] [address] [facility] [address] [place] [address] Portia Maguire MD [address] [facility] [address] [place] [address] 06/13/2025 11:30 AM EDT Appointment Cardiac Imaging [address] [place] [address] 06/13/2025 2:00 PM EDT Appointment [facility] Radiology [address] [place] [address] 06/26/2025 3:20 PM EDT Appointment [facility] Bone & Mineral Metabolism [address] [facility], [address] [place] [address] 06/26/2025 3:40 PM EDT Office Visit [facility] Bone [facility] Mineral Metabolism [address] [facility], [address] [place] [address] Moustapha Katz MD [address] [facility] [address] [place] [address] 10/03/2025 12:45 PM EST Office Visit Medical Office Building Urology [address] [facility], [address] [place] [address] Suhail Brock MD [address] [facility] [address] [place] [address] documented as of this encounter [...] documented as of this encounter Care Teams Sous Chef Relationship Specialty Start Date End Date Urban Brantley DO [address] [place] [address] PCP - General 07/30/23 03/13/25 Chris Medel MD [address] [place] [address] PCP - General 03/14/25 Ruma Hernández APRN [address] [place] [address] Referring Physician Gastroenterology 07/30/23 documented as of this encounter
--- OUTSIDE RECORDS SUMMARY | 2025-04-30 07:35 | XMS_ITS ---
Author Organization [facility] Address [address] 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
--- OUTSIDE RECORDS SUMMARY | 2025-04-30 07:35 | XMS_ITS | Clinical Summary ---
Author Organization [facility] Address [address] [place] [address] Care Team Providers Care Automatic Fabric Cutter Name Role Phone Ruma Hernández PUMPING SUPERVISOR Unavailable [phone] Chris Medel MD Primary Care Provider [phone] Allergies Active Allergy Reactions Criticality Noted Date Comments Lisinopril Cough Low 09/15/2021 Medications carvedilol (Coreg) 3.125 MG tabletIndication s:Cirrhosis of liver with ascites, unspecified hepatic cirrhosis type (CMS/HCC) Take 1 tablet (3.125 mg) by mouth 2 (two) times a day with meals. 60 tablet 11 4 09/13/20 25 Active Xifaxan 550 MG tablet 5 Active ergocalciferol (Vitamin D-2) 1.25 MG (88601 UT) capsule Take 1 capsule by mouth [...] Department Care Team Description 04/03/2025 Results Follow-Up [facility] [address] [address] Meaghan Le RN 03/30/2025 Results Follow-Up [facility] [address] [address] Meaghan Le RN 03/14/2025 9:16 AM EDT - 03/14/2025 11:59 PM EDT Hospital Encounter [facility] Radiology [address] [place] [address] Pre-liver transplant, listed Discharge Disposition: Home or Self Care 03/14/2025 8:00 AM EDT Office Visit [facility] [address] [address] Zarina Moore, PA Alcoholic cirrhosis of liver with ascites (CMS/HCC) (Primary Dx); Left inguinal hernia; Bilateral leg edema; Cirrhosis of liver with ascites, unspecified hepatic cirrhosis type (CMS/HCC); Other ascites 03/14/2025 6:59 AM EDT - 03/14/2025 9:15 AM EDT Hospital Encounter [facility] [address] [place] [address] Nephrolithiasis Discharge Disposition: Home or Self Care 03/14/2025 Travel 03/06/2025 4:00 PM EDT Office Visit Professional [facility] [address], [address] [place] [address] Moustapha Katz MD Other osteoporosis without current pathological fracture (Primary Dx); Alcoholic cirrhosis of liver with ascites (CMS/HCC); Iron overload; Obesity (BMI 35.0-39.9 without comorbidity); Vitamin D deficiency; Other ascites 03/06/[address] [facility] [address] [facility] [address], [address] [place] [address] Dulce Miller 03/05/2025 Results Follow-Up [facility] [address] [place] [address] Meaghan Le RN 03/05/2025 Travel 02/20/2025 Telephone [facility] [address] [facility] [address] [facility] [address], [address] [place] [address] Zeferino Jiang 02/19/2025 10:30 AM EDT Consult Medical Office Building Surgical Specialties [address], [address] [place] [address] Jaquan Howell MD Alcoholic cirrhosis of liver with ascites (CMS/HCC) (Primary Dx); Left inguinal hernia; Obesity (BMI 35.0-39.9 without comorbidity); Hypertension, unspecified type 02/19/2025 Travel 02/15/2025 Abstract Medical Office [facility] Surgical Specialties [address] [facility] [address], [address] [place] [address] Gildardo Rivera 02/07/2025 1:38 PM EDT - 02/07/2025 3:27 PM EDT Emergency [facility] [address] [place] [address] Carlos Chun MD Left inguinal hernia (Primary Dx) Discharge Disposition: Home or Self Care 02/07/2025 Travel 02/07/2025 Telephone [facility] [address] [place] [address] Meaghan Le RN 02/06/2025 Results Follow-Up [facility] [address] [place] [address] Meaghan Le, RN from Last 3 Months [...] week 02/19/2025 How often do you attend [facility]? More than 4 times per year [...] Recorded Patient Health Questionnaire-2 Score 0 03/14/2025 [facility] - Occupational Stress Questionnaire Answer Date Recorded [...] time in the past 12 m [facility], were you homeless or living in a prison (including now)? No 02/19/2025 Utilities Answer Date [...] Description 06/13/2025 6:45 AM EDT Clinical Support [facility] [address] [place] [address] 06/13/2025 8:00 AM EDT Office Visit [facility] [address] [place] [address] Portia Maguire MD [address] [place] [address] 06/13/2025 11:30 AM EDT Appointment Cardiac Imaging [address] [place] [address] 06/13/2025 2:00 PM EDT Appointment [facility] [address] [place] [address] 06/26/2025 3:20 PM EDT Appointment Professional [facility] [address] [facility] [address], [address] [place] [address] 06/26/2025 3:40 PM EDT Office Visit [facility] [address] [facility] [address], [address] [place] [address] Moustapha Katz MD [address] [facility] [address] [place] [address] 10/03/2025 12:45 PM EST Office Visit Medical Office Building Urology [address], [address] [place] [address] Suhail Brock MD [address] [place] [address] Health Maintenance Due Date Last [...] - Risk 60-74 years 1-dose series) 2021 [id number] Vaccine ( - season) 2024 UKY-Bone Density [...] Venous blood specimen / Unknown 04/02/2025 Result [facility] MD LAB BLOOD ORDERABLES Nadia l Result * Hemoglobin, Blood (03/26/2025) External Hemoglobin (Hgb) 11.70 Blood Venous blood specimen / Unknown 03/26/2025 Result [facility] MD LAB BLOOD ORDERABLES Nadia l Result * Hematocrit, Blood (03/26/2025) External Hematocrit (Hct) 34.1 Blood Venous blood specimen / Unknown 03/26/2025 Result [facility] MD LAB BLOOD ORDERABLES Nadia l Result * Ferritin, Serum (03/26/2025) External Ferritin 77.9 Blood Venous blood specimen / Unknown 03/26/2025 Result [facility] MD LAB BLOOD ORDERABLES Edit ed Result [...] are consistent with and integrated into the [employer] Liver Diseases [...] the final edited report. Drafted by Mary Maosn MD on 03/14/2025 11:10 AM Final report [...] are consistent with and integrated into the [place] Associationfor the Study of Liver Diseases (AASLD) [...] <20 <20 ng/mL 03/15 5:41 AM EDT [facility] Alpha OH Midazolam <20 <20 ng/mL 2024 5:41 AM EDT [facility] Alpha OH Triazolam <20 <20 ng/mL 2024 5:41 AM EDT [facility] Alprazolam <10 <10 ng/mL 03/15/2025 5:41 AM EDT [facility] Aminoclonazepam <20 <20 ng/mL 5:41 AM EDT [facility] Amphetamine <50 <50 ng/mL 03/15/2025 5:41 AM EDT [facility] Benzoylecgonine <50 <50 ng/mL 5:41 AM EDT [facility] Buprenorphine <10 <10 ng/mL 03/15/2025 5:41 AM EDT [facility] Buprenorphine Glucuronide <50 <50 ng/mL 03/15/2025 5:41 AM EDT [facility] Butalbital <50 <50 ng/mL 03/15/2025 5:41 AM EDT [facility] 9 Carboxy THC <10 <10 ng/mL 03/15/2025 5:41 AM EDT [facility] 9 Carboxy THC Glucuronide <25 <25 ng/mL 03/15/2025 5:41 AM EDT [facility] Clonazepam <10 <10 ng/mL 03/15/2025 5:41 AM EDT [facility] Codeine <50 <50 ng/mL 03/15/2025 5:41 AM EDT [facility] Codeine Glucuronide <50 <50 ng/mL 03/15 5:41 AM EDT [facility] Cyclobenzaprine <50 <50 ng/mL 5:41 AM EDT [facility] Desmethyl Tramadol <50 <50 ng/mL 2024 5:41 AM EDT [facility] Diazepam <10 <10 ng/mL 03/15/2025 5:41 AM EDT [facility] EDDP - Methadone Metabolite <50 <50 ng/mL 03/15/2025 5:41 AM EDT [facility] Fentanyl <1 <1 ng/mL 03/15/2025 5:41 AM EDT [facility] Hydrocodone <50 <50 ng/mL 03/15/2025 5:41 AM EDT [facility] Hydromorphone <50 <50 ng/mL 03/15/2025 5:41 AM EDT [facility] Hydromorphone Glucuronide <50 <50 ng/mL 03/15/2025 5:41 AM EDT [facility] Lorazepam <20 <20 ng/mL 03/15/2025 5:41 AM EDT [facility] Lorazepam Glucuronide <50 <50 ng/mL 03/15/2025 5:41 AM EDT [facility] MDA <50 <50 ng/mL 03/15/2025 5:41 AM EDT [facility] MDMA <50 <50 ng/mL 03/15/2025 5:41 AM EDT [facility] Meperidine <50 <50 ng/mL 03/15/2025 5:41 AM EDT [facility] Methadone <50 <50 ng/mL 03/15/2025 5:41 AM EDT [facility] Methamphetamine <50 <50 ng/mL 5:41 AM EDT [facility] Methylphenidate <50 <50 ng/mL 5:41 AM EDT [facility] 6 Monoacetyl morphine <10 <10 ng/mL 03/15/2025 5:41 AM EDT [facility] Morphine <50 <50 ng/mL 03/15/2025 5:41 AM EDT [facility] Morphine Glucuronide <50 <50 ng/mL 11/2024 5:41 AM EDT [facility] Naloxone <50 <50 ng/mL 03/15/2025 5:41 AM EDT [facility] Naloxone Glucuronide <50 <50 ng/mL 11/2024 5:41 AM EDT [facility] Norbuprenorphine <10 <10 ng/mL 03/15/20 5:41 AM EDT [facility] Norbuprenorphine Glucuronide <50 <50 ng/mL 03/15/2025 5:41 AM EDT [facility] Nordiazepam <20 <20 ng/mL 03/15/2025 5:41 AM EDT [facility] Norfentanyl <2 <2 ng/mL 03/15/2025 5:41 AM EDT [facility] Normeperidine <50 <50 ng/mL 03/15/2025 5:41 AM EDT [facility] PCP Quant, Ur <50 <50 ng/mL 03/15/2025 5:41 AM EDT [facility] Phenobarbital <50 <50 ng/mL 03/15/2025 5:41 AM EDT [facility] Oxazepam <20 <20 ng/mL 03/15/2025 5:41 AM EDT [facility] Oxazepam Glucuronide <50 <50 ng/mL 11/2024 5:41 AM EDT [facility] Oxycodone <50 <50 ng/mL 03/15/2025 5:41 AM EDT [facility] Oxymorphone <50 <50 ng/mL 03/15/2025 5:41 AM EDT [facility] Oxymorphone Glucuronide <50 <50 ng/mL 03/15/2025 5:41 AM EDT [facility] Secobarbital <50 <50 ng/mL 03/15/2025 5:41 AM EDT [facility] Tramadol <50 <50 ng/mL 03/15/2025 5:41 AM EDT [facility] Temazepam <20 <20 ng/mL 03/15/2025 5:41 AM EDT [facility] Temazepam Glucuronide <50 <50 ng/mL 03/15/2025 5:41 AM EDT [facility] Urine Urine specimen obtained by clean catch procedure / Unknown Non-blood Collection / Unknown 03/14/2025 6:43 AM EDT 03/14/2025 7:51 AM EDT Narrative [facility] - 03/15/2025 5:41 AM EDT Methodology:Quantitative [...] developed and its performance characteristics determined by [facility] in manner consistent with CLIA requirements. This test has not been cleared or approved by the FDA. Portia Maguire MD LAB URINE ORDERABLES Nadia l Result Performing Organization Address [place]/[facility] [place] [address] * Alpha Fetoprotein, Serum (03/14/2025 6:43 AM EDT) Alpha Fetoprotein, Serum <2.3 <10.0 ng/mL 03/14/2025 9:07 AM EDT [facility] Blood Venous blood specimen / Unknown Venipuncture / Unknown 03/14/2025 6:43 AM EDT 03/14/2025 6:59 AM EDT Narrative [facility] - 03/14/2025 9:07 AM EDT Performed by Stacey electrochemiluminescent immunoassay which is traceable to the 1st AFP IRP WHO Reference standard 72/255. Results obtained with different test methods or kits cannot be used interchangeably. Portia Maguire MD LAB BLOOD ORDERABLES Nadia l Result Performing Organization Address City/[facility] Co de Phone Number [facility] [address] [place] [address] * Nicotine Cotinine Metabolite (03/14/2025 6:43 AM EDT) NICOTINE <5 <5 ng/mL 03/15/2025 8:4 3 AM EDT [facility] Cotinine <5 <5 ng/mL 03/15/2025 8:4 3 AM EDT [facility] Blood Venous blood specimen / Unknown Venipuncture / Unknown 03/14/2025 6:43 AM EDT 03/14/2025 6:59 AM EDT Narrative [facility] - 03/15/2025 8:43 AM EDT Testing performed by LC-MS/MS at the [facility]. This test was developed and its performance characteristics determined by [facility]. This assay has not been cleared by the FDA. The laboratory is regulated under CLIA as qualified to perform high-complexity testing. This test is used for clinical purposes. Portia Maguire MD LAB BLOOD ORDERABLES Nadia crockett Result [facility] [address] [place] [address] * Alcohol Urine (03/14/2025 6:43 AM EDT) Alcohol Urine Negative Negative 03/14/2025 2:26 PM EDT [facility] Urine Urine specimen obtained by clean catch procedure / Unknown Non-blood Collection / Unknown 03/14/2025 6:43 AM EDT 03/14/2025 7:51 AM EDT Narrative [facility] - 03/14/2025 2:26 PM EDT The correlation between urine and serum ethanol concentration is highly variable. Test performed by Gas Chromatography at the [facility]. This test was developed and its performance characteristics determined by [facility]. It has not been cleared or approved by the FDA.The laboratory is regulated under CLIA as qualified to perform high-complexity testing. This test is used for clinical purposes only. The correlation between urine and serum ethanol concentration is highly variable. Test performed by Gas Chromatography at the [facility]. This test was developed and its performance characteristics determined by [facility]. It has not been cleared or approved by the FDA.The laboratory is regulated under CLIA as qualified to perform high-complexity testing. This test is used for clinical purposes only. us Portia Maguire MD LAB URINE ORDERABLES Nadia crockett Result [facility] [address] [place] [address] * Comprehensive Urine Drug Screening, Qualitative Assay, >= 27 Drug Classes (03/14/2025 6:43 AM EDT) Acetaminophen Negative Negative 03/26/2025 9:38 AM EDT [facility] Alprazolam Negative Negative 03/26/2025 9:38 AM EDT [facility] Amantadine Negative Negative 03/26/2025 9:38 AM EDT [facility] Amitriptyline Negative Negative 03/26/2025 9:38 AM EDT [facility] Amphetamine Negative Negative 03/26/2025 9:38 AM EDT [facility] Atenolol Negative Negative 03/26/2025 9:38 AM EDT [facility] Benzoylecgonine Negative Negative 9:38 AM EDT [facility] Bisoprolol Negative Negative 03/26/2025 9:38 AM EDT [facility] Bupropion Negative Negative 03/26/2025 9:38 AM EDT [facility] Butalbital Negative Negative 03/26/2025 9:38 AM EDT [facility] Carbamazepine Negative Negative 03/26/2025 9:38 AM EDT [facility] Carisoprodol Negative Negative 03/26/2025 9:38 AM EDT [facility] Chlorpheniramine Negative Negative 03/26/20 9:38 AM EDT [facility] Citalopram Negative Negative 03/26/2025 9:38 AM EDT [facility] Clindamycin Negative Negative 03/26/2025 9:38 AM EDT [facility] Clonidine Negative Negative 03/26/2025 9:38 AM EDT [facility] Clopidogrel / Ticlopidine Negative Negative 03/26/2025 9:38 AM EDT [facility] Cocaethylene Negative Negative 03/26/2025 9:38 AM EDT [facility] Cocaine Negative Negative 03/26/2025 9:38 AM EDT [facility] Codeine Negative Negative 03/26/2025 9:38 AM EDT [facility] Cyclobenzaprine Negative Negative 9:38 AM EDT [facility] Desvenlafaxine Negative Negative 03/26/2025 9:38 AM EDT [facility] Dextromethorphan Negative Negative 03/26/20 9:38 AM EDT [facility] Diazepam Negative Negative 03/26/2025 9:38 AM EDT [facility] Diltiazem Negative Negative 03/26/2025 9:38 AM EDT [facility] Diphenhydramine Negative Negative 9:38 AM EDT [facility] Doxepine Negative Negative 03/26/2025 9:38 AM EDT [facility] Doxylamine Negative Negative 03/26/2025 9:38 AM EDT [facility] EDDP-Methadone metabolite Negative Negative 03/26/2025 9:38 AM EDT [facility] Fentanyl Negative Negative 03/26/2025 9:38 AM EDT [facility] Fluconazole Negative Negative 03/26/2025 9:38 AM EDT [facility] Fluoxetine Negative Negative 03/26/2025 9:38 AM EDT [facility] Guaifenesin Negative Negative 03/26/2025 9:38 AM EDT [facility] Haloperidol Negative Negative 03/26/2025 9:38 AM EDT [facility] Heroin/6-MARY Negative Negative 03/26/2025 9:38 AM EDT [facility] Hydrocodone Negative Negative 03/26/2025 9:38 AM EDT [facility] Hydroxyzine / Cetirizine metabolite Negative Negative 03/26/2025 9:38 AM EDT [facility] Ibuprofen Negative Negative 03/26/2025 9:38 AM EDT [facility] Imipramine Negative Negative 03/26/2025 9:38 AM EDT [facility] Ketamine Negative Negative 03/26/2025 9:38 AM EDT [facility] Labetolol Negative Negative 03/26/2025 9:38 AM EDT [facility] Lamotrigine Negative Negative 03/26/2025 9:38 AM EDT [facility] Levetiracetam Negative Negative 03/26/2025 9:38 AM EDT [facility] Lidocaine Negative Negative 03/26/2025 9:38 AM EDT [facility] MDA Negative Negative 03/26/2025 9:38 AM EDT [facility] MDMA Negative Negative 03/26/2025 9:38 AM EDT [facility] Memantine Negative Negative 03/26/2025 9:38 AM EDT [facility] Meperidine Negative Negative 03/26/2025 9:38 AM EDT [facility] Meprobamate Negative Negative 03/26/2025 9:38 AM EDT [facility] Metaxalone Negative Negative 03/26/2025 9:38 AM EDT [facility] Methamphetamine Negative Negative 9:38 AM EDT [facility] Methocarbamol Negative Negative 03/26/2025 9:38 AM EDT [facility] Methylecgonine Negative Negative 03/26/2025 9:38 AM EDT [facility] Metoclopramide Negative Negative 03/26/2025 9:38 AM EDT [facility] Metoprolol Negative Negative 03/26/2025 9:38 AM EDT [facility] Metronidazole Negative Negative 03/26/2025 9:38 AM EDT [facility] Midazolam Negative Negative 03/26/2025 9:38 AM EDT [facility] Midazolam Metabolite Negative Negative 03/15 9:38 AM EDT [facility] Mirtazapine Negative Negative 03/26/2025 9:38 AM EDT [facility] Misc Test Result Negative Negative 03/26/20 9:38 AM EDT [facility] Naproxen Negative Negative 03/26/2025 9:38 AM EDT [facility] Nefazodone Negative Negative 03/26/2025 9:38 AM EDT [facility] Norfentanyl Negative Negative 03/26/2025 9:38 AM EDT [facility] Nortriptyline Negative Negative 03/26/2025 9:38 AM EDT [facility] Ordanstron Negative Negative 03/26/2025 9:38 AM EDT [facility] Oxcarbazepine Negative Negative 03/26/2025 9:38 AM EDT [facility] Oxycodone Negative Negative 03/26/2025 9:38 AM EDT [facility] Paroxethine Negative Negative 03/26/2025 9:38 AM EDT [facility] Phenobarbital Negative Negative 03/26/2025 9:38 AM EDT [facility] Phentermine Negative Negative 03/26/2025 9:38 AM EDT [facility] Phenytoin Negative Negative 03/26/2025 9:38 AM EDT [facility] Primidone Negative Negative 03/26/2025 9:38 AM EDT [facility] Promethazine Negative Negative 03/26/2025 9:38 AM EDT [facility] Propofol Negative Negative 03/26/2025 9:38 AM EDT [facility] Propranolol Negative Negative 03/26/2025 9:38 AM EDT [facility] Quetiapine Negative Negative 03/26/2025 9:38 AM EDT [facility] Quinine Negative Negative 03/26/2025 9:38 AM EDT [facility] Rantidine Negative Negative 03/26/2025 9:38 AM EDT [facility] Sertraline Negative Negative 03/26/2025 9:38 AM EDT [facility] Spironolactone Negative Negative 03/26/2025 9:38 AM EDT [facility] Tizanidine Negative Negative 03/26/2025 9:38 AM EDT [facility] Topiramate Negative Negative 03/26/2025 9:38 AM EDT [facility] Tramadol Negative Negative 03/26/2025 9:38 AM EDT [facility] Trazadone/ Trazadone metabolite Negative Negative 03/26/2025 9:38 AM EDT [facility] Trimethoprim Negative Negative 03/26/2025 9:38 AM EDT [facility] Valproic Acid Negative Negative 03/26/2025 9:38 AM EDT [facility] Venlafaxine Negative Negative 03/26/2025 9:38 AM EDT [facility] Verapamil Negative Negative 03/26/2025 9:38 AM EDT [facility] Zolpidem Negative Negative 03/26/2025 9:38 AM EDT [facility] Xylazine Negative Negative 03/26/2025 9:38 AM EDT [facility] Urine Urine specimen obtained by clean catch procedure / Unknown Non-blood Collection / Unknown 03/14/2025 6:43 AM EDT 03/14/2025 7:51 AM EDT Narrative [facility] - 03/26/2025 9:38 AM EDT Test performed by: [facility] [address] [place] [address] Portia Maguire MD LAB URINE ORDERABLES Nadia bon Result [facility] [address] [place] [address] * Dexa Bone Density (04/11/2024 12:32 PM [...] the non-dominant forearm was performed using a Tamtron Horizon A Dual- energy X-ray Absorptiometry (DXA) [...] the non-dominant forearm was performed using a HoloWorkProductsrizon A Dual- energy X-ray Absorptiometry (DXA) scanner (software .6.1.2). COMPARISON/CORRELATION: No comparison. No recent correlative imaging. [...] 2 Antibody/Antigen Screen (04/11/2024 6:27 AM EDT) [facility] HIV 1 & 2 Antibody/Antigen Screen Non Reactive Non Reactive 04/11/2024 7:32 AM EDT [facility] Comment:Screening for HIV 1 & 2 antibodies, and P24 antigen is NONREACTIVE. No confirmatory testing is required. Blood Venous blood specimen / Unknown Venipuncture / Unknown 04/11/2024 6:27 AM EDT 04/11/2024 6:51 AM EDT Delilah Joshua MD LAB BLOOD ORDERABLES Final Result Performing Organization Address City/[facility]/ZIP Co de Phone Number [facility] [address] [place] [address] * Hepatitis C Antibody (08/03/2023 7:30 AM EDT) Hepatitis C Antibody Negative Negative 08/03/2023 8:47 AM EDT [facility] Blood Venous blood specimen / Unknown Venipuncture / Unknown 08/03/2023 7:30 AM EDT 08/03/2023 8:05 AM EDT Bird Kennedy MD LAB BLOOD ORDERABLES Final Resul t [facility] [address] [place] [id number] from Last 3 Months or Most Recently Relevant to Health Maintenance Insurance [employer] Member Subscriber Plan / Payer (Ef fective 2023-Present) Name:David Pop Relation to Subscriber:Self Name:Kiesha, David Trina Payer ID:[id number] (NAIC) Type:Not on file Address: [address] [place] [address] [employer] Care Teams Automatic [employer] C[employer] Relationship Specialty Start Date End Date Chris Medel MD [address] [place] [address] PCP - General 03/14/25 Ruma Hernández APRN [address] [facility] [address] [place] [address] Referring Physician Gastroenterology 07/30/23
--- OUTSIDE RECORDS SUMMARY | 2025-04-30 07:35 | XMS_ITS | Data Portability ---
Author Organization [place] - [facility] - [facility] JULIANA Louie ADMIN Address [address] [place] [id number] Assessment Encounter Date Assessment Date Assessment LastModified by Organization Details LastModified Time 2023 2023 Vijaya REINA Dear Vijaya, I wanted to let you know that I saw David natarajna in the off state your request he [...] in punctuate muhammad and or spelling, etc. [email or web address] Not available 2023 11:56:25 Plan of Treatment [...] WBC 4.1 K/uL 4.0-10 .5 Not Available [facility] ([facility]) [address] [facility], [place], [address], 02/10/2023 10:08:24 02/11/20 23 02/10/2023 CBC AUTO NO DIFF (HEMO GRAM) RBC 4.0 M/mm3 4.7-6. 1 low Not Available [facility] ([facility]) [address] [facility], [place], [address], 02/10/2023 10:08:24 02/11/20 23 02/10/2023 CBC AUTO NO DIFF (HEMO GRAM) HGB 13.8 gm/dL 13.5-1 8.0 Not Available [facility] ([facility]) [address] [facility], [place], [address], 02/10/2023 10:08:24 02/11/20 23 02/10/2023 CBC AUTO NO DIFF (HEMO GRAM) HCT 40.3 % 42.0-5 2.0 low Not Available [facility] ([facility]) [address] [place], [address], 02/10/2023 10:08:24 02/11/20 23 02/10/2023 CBC AUTO NO DIFF (HEMO GRAM) MCV 101.8 fL 78-100 high Not Available [facility] ([facility]) [address] [place], [address], 02/10/2023 10:08:24 02/11/20 23 02/10/2023 CBC AUTO NO DIFF (HEMO GRAM) MCH 34.8 pg 27-31 high Not Available [facility] ([facility]) [address] , [place], [address], 02/10/2023 10:08:24 02/11/20 23 02/10/2023 CBC AUTO NO DIFF (HEMO GRAM) MCHC 34.2 g/dL 32-36 Not Available [facility] ([facility]) [address], [place], [address], 02/10/2023 10:08:24 02/11/20 23 02/10/2023 CBC AUTO NO DIFF (HEMO GRAM) RDW 15.9 % 11.5-1 4.0 high Not Available [facility] ([facility]) [address], [place], [address], 02/10/2023 10:08:24 02/11/20 23 02/10/2023 CBC AUTO NO DIFF (HEMO GRAM) platelet count 71 K/uL 150-45 0 low Not Available [facility] ([facility]) [address], [place], [address], 02/10/2023 10:08:24 02/11/20 23 02/10/2023 CBC AUTO NO DIFF (HEMO GRAM) manual differential NO Not Available [facility] ([facility]) [address], [place], [address], 02/10/2023 10:08:24 02/11/20 23 02/10/2023 COMP METAB OLIC PANEL sodium 139 mmol/ L 136-14 5 Not Available [facility] ([facility]) [address] [place], [address], 02/10/2023 10:40:35 02/11/20 23 02/10/2023 COMP METAB OLIC PANEL potassium 3.7 mmol/ L 3.6-5. 0 Not Available [facility] ([facility]) [address] , [place], [address], 02/10/2023 10:40:35 02/11/20 23 02/10/2023 COMP METAB OLIC PANEL chloride 105 mmol/ L 98-107 Not Available [facility] ([facility]) [address] , [place], [address], 02/10/2023 10:40:35 02/11/20 23 02/10/2023 COMP METAB OLIC PANEL carbon dioxide 26.3 mmol/ L 21.0-3 2.0 Not Available [facility] ([facility]) [address], [place], [address], 02/10/2023 10:40:35 02/11/20 23 02/10/2023 COMP METAB OLIC PANEL anion gap 11.4 Not Available [facility] ([facility]) [address], [place], [address], 02/10/2023 10:40:35 02/11/20 23 02/10/2023 COMP METAB OLIC PANEL glucose 108 mg/dL 70-120 Not Available [facility] ([facility]) [address], [place], [address], 02/10/2023 10:40:35 02/11/20 23 02/10/2023 COMP METAB OLIC PANEL BUN 5 mg/dL 7-18 low Not Available [facility] ([facility]) [address] , [place], [address], 02/10/2023 10:40:35 02/11/20 23 02/10/2023 COMP METAB OLIC PANEL creatinine 0.7 mg/dL 0.6-1. 3 Not Available [facility] ([facility]) [address] , [place], [address], 02/10/2023 10:40:35 02/11/20 23 02/10/2023 COMP METAB OLIC PANEL glomerular filtration rate >60 mlper min 60- Not Available [facility] ([facility]) [address], [place], [address], 02/10/2023 10:40:35 02/11/20 23 02/10/2023 COMP METAB OLIC PANEL total protein 7.4 g/dL 6.4-8. 2 Not Available [facility] ([facility]) [address], [place], [address], 02/10/2023 10:40:35 02/11/20 23 02/10/2023 COMP METAB OLIC PANEL albumin 2.5 g/dL 3.4-5. 0 low Not Available [facility] ([facility]) [address], [place], [address], 02/10/2023 10:40:35 02/11/20 23 02/10/2023 COMP METAB OLIC PANEL globulin 4.9 Not Available [facility] ([facility]) [address], [place], [address], 02/10/2023 10:40:35 02/11/20 23 02/10/2023 COMP METAB OLIC PANEL alb/glob ratio 0.5 0.7-2 low Not Available [facility] ([facility]) [address], [place], [address], 02/10/2023 10:40:35 02/11/20 23 02/10/2023 COMP METAB OLIC PANEL calcium 8.1 mg/dL 8.5-10 .5 low Not Available [facility] ([facility]) [address], [place], [address], 02/10/2023 10:40:35 02/11/20 23 02/10/2023 COMP METAB OLIC PANEL bilirubin total 4.00 mg/dL 0.10-1 .00 high Not Available [facility] ([facility]) [address], [place], [address], 02/10/2023 10:40:35 02/11/20 23 02/10/2023 COMP METAB OLIC PANEL AST (SGOT) 75 U/L 0-37 high Not Available [facility] ([facility]) [address], [place], [address], 02/10/2023 10:40:35 02/11/20 23 02/10/2023 COMP METAB OLIC PANEL ALT (SGPT) 38 U/L 0-65 Not Available [facility] ([facility]) [address], [place], [address], 02/10/2023 10:40:35 02/11/20 23 02/10/2023 COMP METAB OLIC PANEL alk phosphatase 334 U/L 46-116 high Not Available [facility] ([facility]) [address], [place], [address], 02/10/2023 10:40:35 Result Notes None recorded. Procedures Surgical History Date Name Laterality Status Provider Name and Address Organization Details Recorded Time Hernia Repair completed Rafa CARLOS - [facility] [place] 2023 11:10:15 Imaging Results None recorded. Procedure [...] Updated DateTime 3 170.18 cm 30.2 kg/m2 43410.3 3 g 77 /min 154 mm[Hg] 94 mm[Hg] Rafa harp [place] - [facility] [place] 3 11:23:09 Social History Question Answer Notes LastModified by Organizat ion Details LastModified Time Tobacco Smoking Status Former Smoker [facility] [place] [facility] [place] 2023 11:10:32 When Did You Quit Smoking? 6-10yearssin celastcigare tte [place] Information not available 2023 Sex: Unknown Functional Status None recorded. Mental Status None recorded. Family History Nothing Reported. Medical History No medical history recorded. Past Encounters Encounter ID Performer Location Encounter Start Date Encounter Closed Date Diagnosis/Indication Diagnosis SNOMED-CT Code Diagnosis ICD10 Code Diagnosis Note [id number] Jeffrey Chu MD [facility] Bariatric s and Adv Surg [address] [facility] [address] [place] [address] 2023 10:52:58 2023 11:57:37 Left inguinal hernia 252236251 K40.90 Umbilical hernia 5001619 07 K42.9 Health Concerns Section Related Observation LastModified by Organization Detai ls LastModified Time None Recorded Concern Status LastModified by Organization Details LastModified Time None Recorded Advance Directives Directive None Recorded Payers Insurance Date Sequence Insurance Name Policy Number Policy Mcdaniel Covered Member ID Mcdaniel Member ID Guarantor Name 2023 1 [employer] David Pop [id number] David Pop 02/12/2023 1 [employer] (POS) David Pop [id number] David Pop
--- OUTSIDE RECORDS SUMMARY | 2025-04-30 07:35 | XMS_ITS | Encounter Summary ---
Author Organization Healthcare Address [address] [place] [address] Care Team Providers Care Folder Gluer Operator Name Role Phone KaronUrban Primary Care Provider [phone] Ruma Hernández CLAIMS SERVICE REPRESENTATIVE Unavailable [phone] Chris Medel MD Primary Care Provider [phone] Encounter Details Date Type Department Care Team (Late st Contact Info) Description 05/09/2023 Orders Only External Location [address] [place] [address] Provider, External Social History Tobacco Use Types [...] 06/13/2025 6:45 AM EDT Clinical Support [facility] [address] [place] [address] 06/13/2025 8:00 AM EDT Office Visit [facility] [address] [place] [address] Portia Maguire MD [address] [place] [address] 06/13/2025 11:30 AM EDT Appointment Cardiac Imaging [address] [place] [address] 06/13/2025 2:00 PM EDT Appointment [facility] [address] [place] [address] 06/26/2025 3:20 PM EDT Appointment [facility] [place] Bone & Mineral Metabolism [address] [facility] [facility], [address] [place] [address] 06/26/2025 3:40 PM EDT Office Visit [facility] [place] Bone & Mineral Metabolism [address] [facility], [address] [place] [address] Moustapha Katz MD [address] [facility] [address] [place] [address] 10/03/2025 12:45 PM EST Office Visit Medical Office Building Urology [address] [facility], [address] [place] [address] Suhail Brock MD [address] [facility] [address] [place] [address] documented as of this encounter [...] on filedocumented in this encounter Care Teams Folder Gluer Operator Relationship Specialty Start Date End Date Urban Brantley DO [address] [place], [place] [id number] PCP - General 07/30/23 03/13/25 Chris Medel MD [address] [place] [address] PCP - General 03/14/25 Ruma Hernández APRN [address] [place] [address] [address] [place] [address] Referring Physician Gastroenterology 07/30/23 documented as of this encounter
--- OUTSIDE RECORDS SUMMARY | 2025-04-30 07:35 | XMS_ITS | Encounter Summary ---
Author Organization Healthcare Address [address] [place] [address] Care Team Providers Care Trim Technician Name Role Phone KaronUrban Primary Care Provider [phone] Ruma Hernández ASSOCIATE DRAFTER Unavailable [phone] Chris Medel MD Primary Care Provider [phone] Encounter Details Date Type Department Care Team (Late st Contact Info) Description 03/22/2023 Orders Only External Location [address] [place] [address] Provider, External Social History Tobacco Use Types [...] Description 06/13/2025 6:45 AM EDT Clinical Support [facility] [address] [place] [address] 06/13/2025 8:00 AM EDT Office Visit [facility] [address] [place] [address] Portia Maguire MD [address] [place] [address] 06/13/2025 11:30 AM EDT Appointment Cardiac Imaging [address] [place] [address] 06/13/2025 2:00 PM EDT Appointment [facility] [address] [place] [address] 06/26/2025 3:20 PM EDT Appointment [facility] Bone & Mineral Metabolism [address] [facility], [address] [place] [address] 06/26/2025 3:40 PM EDT Office Visit [facility] Bone & Mineral Metabolism [address] [facility], [address] [place] [address] Moustapha Katz MD [address] [facility] [address] [place] [address] 10/03/2025 12:45 PM EST Office Visit Medical Office Building Urology [address] [facility], [address] [place] [address] Suhail Brock MD [address] [facility] [address] [place] [address] documented as of this encounter [...] on filedocumented in this encounter Care Teams Trim Technician Relationship Specialty Start Date End Date Urban Brantley DO [address] [place] [address] PCP - General 07/30/23 03/13/25 Chris Medel MD [address] [place] [address], [place] [address] PCP - General 03/14/25 Ruma Hernández APRN [address] [facility] [address] [place] [address] Referring Physician Gastroenterology 07/30/23 documented as of this encounter
--- OUTSIDE RECORDS SUMMARY | 2025-04-30 07:35 | XMS_ITS | Encounter Summary ---
Author Organization Healthcare Address [address] [place] [address] Care Team Providers Care Ticket Dispatcher Name Role Phone Ruma Hernández SUPERVISOR ELECTRIC Unavailable [phone] Chris Medel MD Primary Care Provider [phone] Encounter Details Date Type Department Care Team (Late st Contact Info) Description 03/30/2025 Results Follow-Up [facility] [address] [place] [address] Meaghan Le, RN [id number] [address] [place] [id number] Social History Tobacco Use Types Packs/Day Years [...] week 02/19/2025 How often do you attend [facility] or [facility] services? More than 4 times per year 02/19/2025 Do you belong to any clubs o r organizations such as buddhist groups, unions, fraternal or athletic groups, or [...] Recorded Patient Health Questionnaire-2 Score 0 03/14/2025 [facility] Occupat ional Health - Occupational [...] time in the past 12 m [facility], were you homeless or living in [...] Description 06/13/2025 6:45 AM EDT Clinical Support [facility] [address] [place] [address] 06/13/2025 8:00 AM EDT Office Visit [facility] [address] [facility] [address] [place] [address] Portia Mgauire MD [address] [facility] [address] [place] [address] 06/13/2025 11:30 AM EDT Appointment Cardiac Imaging [address] [place] [address] 06/13/2025 2:00 PM EDT Appointment [facility] [address] [place] [address] 06/26/2025 3:20 PM EDT Appointment [facility] Bone & Mineral Metabolism [address] [facility], [address] [place] [address] 06/26/2025 3:40 PM EDT Office Visit [facility] Bone & Mineral Metabolism [address] [facility], [address] [place] [address] Moustapha Katz MD [address] [facility] [address] [place] [address] 10/03/2025 12:45 PM EST Office Visit Medical Office Building Urology [address] [facility], [address] [place] [address] Suhail Brock MD [address] [facility] [address] [place] [address] documented as of this encounter [...] documented as of this encounter Care Teams Ticket Dispatcher Relationship Specialty Start Date End Date Chris Medel MD [address] [place] [address] PCP - General 03/14/25 Ruma Hernández APRN [address] [facility] [address] [place] [address] Referring Physician Gastroenterology 07/30/23 documented as of this encounter
--- OUTSIDE RECORDS SUMMARY | 2025-04-30 07:35 | XMS_ITS | Encounter Summary ---
Author Organization Healthcare Address [address] [place] [address] Care Team Providers Care Makeup Artistry Instructor Name Role Phone ToniUrban morataya Primary Care Provider [phone] Ruma Hernández LINEN MANAGER Unavailable [phone] Encounter Details Date Type Department Care Team ([facility] st Contact Info) Description 03/06/2025 Telephone [facility] [address] [facility], [address] [place] [address] Dulce Miller Social History Tobacco [...] often do you attend chur ch or latter day services? More than 4 times per year [...] Recorded Patient Health Questionnaire-2 Score 0 12/13/2024 [facility] of Occupat ional Health - Occupational [...] Description 06/13/2025 6:45 AM EDT Clinical Support [facility] Transplant [place] [address] [place] [address] 06/13/2025 8:00 AM EDT Office Visit [facility] Transplant [place] [address] [place] [address] Portia Maguire MD [address] [facility] [address] [place] [address] 06/13/2025 11:30 AM EDT Appointment Cardiac Imaging [address] [place] [address] 06/13/2025 2:00 PM EDT Appointment [facility] [address] [place] [address] 06/26/2025 3:20 PM EDT Appointment [facility] Bone & Mineral Metabolism [address] [facility], [address] [place] [address] 06/26/2025 3:40 PM EDT Office Visit [facility] Bone & Mineral Metabolism [address] [facility], [address] [place] [address] Moustapha Katz MD [address] [facility] [address] [place] [address] 10/03/2025 12:45 PM EST Office Visit Medical Office Building Urology [address] [facility], [address] [place] [address] Suhail Brock MD [address] [facility] [address] [place] [address] documented as of this encounter [...] documented as of this encounter Care Teams Makeup Artistry Instructor Relationship Specialty Start Date End Date Urban Brantley DO [address] [place] [address] PCP - General 07/30/23 03/13/25 Ruma Hernández APRN [address] [place] [address] Referring Physician Gastroenterology 07/30/23 documented as of this encounter
--- OUTSIDE RECORDS SUMMARY | 2025-04-30 07:35 | XMS_ITS | Encounter Summary ---
Author Organization Healthcare Address [address] [place] [address] Care Team Providers Care Fourdrinier Tender Name Role Phone KaronUrban Primary Care Provider [phone] Ruma Hernández MARKETING DEVELOPMENT SPECIALIST Unavailable [phone] Chris Medel MD Primary Care Provider [phone] Encounter Details Date Type Department Care Team (Late st Contact Info) Description 03/22/2023 Orders Only External Location [address] [place] [address] Provider, External Social History Tobacco Use Types [...] EDT Clinical Support [facility] Transplant Center [address] [place] [address] 06/13/2025 8:00 AM EDT Office Visit [facility] [address] [place] [address] Portia Maguire MD [address] [place] [address] 06/13/2025 11:30 AM EDT Appointment Cardiac Imaging [address] [place] [address] 06/13/2025 2:00 PM EDT Appointment [facility] [address] [place] [address] 06/26/2025 3:20 PM EDT Appointment [facility] Bone & Mineral Metabolism [address] [facility], [address] [place] [address] 06/26/2025 3:40 PM EDT Office Visit [facility] Bone & Mineral Metabolism [address] [facility], [address] [place] [address] Moustapha Katz MD [address] [facility] [address] [place] [address] 10/03/2025 12:45 PM EST Office Visit Medical Office Building Urology [address] [facility], [address] [place] [address] Suhail Brock MD [address] [facility] [address] [place] [address] documented as of this encounter [...] on filedocumented in this encounter Care Teams Fourdrinier Tender Relationship Specialty Start Date End Date Urban Brantley DO [address] [place] [address] PCP - General 07/30/23 03/13/25 Chris Medel MD [address] [place] [address], [place] [address] PCP - General 03/14/25 Ruma Hernández APRN [address] [facility] [address] [place] [address] Referring Physician Gastroenterology 07/30/23 documented as of this encounter
[2025-04-30 07:51] LABS: Basophils # 0.1 K/mm3 (0-0.2); Eosinophils # 0.4 Kmm3 (0.0-0.4); Eosinophils % 6.6 % (0.1-12.0); Hematocrit 32.9 % (42.0-52.0); Hemoglobin 11.2 g/dL (14.1-18.0); Immature Granulocytes # 0.02 10^3uL; Immature Granulocytes % 0.3 %; Lymphocytes # 1.9 K/mm3 (0.7-4.5); Lymphocytes % 32.9 % (10-50); Mean Corpuscular Hemoglobin 34.6 pg (27.0-31.2); Mean Corpuscular Volume 101.5 fl (80-94); Mean Platelet Volume 9.2 fl (7.4-10.4); Monocytes # 0.7 K/mm3 (0.1-1.0); Monocytes % 11.8 % (1.7-9.3); Neutrophils # 2.7 K/mm3 (1.8-7.8); Neutrophils % 47.4 % (37.0-80.0); Nucleated Red Blood Cells # 0 10^3/uL; Nucleated Red Blood Cells % 0 %; Platelet Count 60 K/mm3 (142-424); Red Blood Count 3.24 M/mm3 (4.60-6.20); Red Cell Distribution Width 15.5 % (11.5-17.5); Red Cell Distribution Width-SD 57.6 fL; White Blood Count 5.8 K/mm3 (4.8-10.8)
[2025-04-30 08:20] LABS: Activated Partial Thrombo Time 40.6 seconds (22.8-30.6); INR 1.69 (0.9-1.1)
[2025-04-30 08:22] LABS: Albumin Level 1.9 g/dl (3.5-5.0); Chloride 112 mmol/L (98-107); Sodium 137 mmol/L (136-145)
[2025-04-30 08:23] LABS: Potassium 3.8 mmoL/L (3.5-5.1)
[2025-04-30 08:25] LABS: Alanine Aminotransferase 30 U/L (12-78); Anion Gap 0.8 mEq/L (5-15); Aspartate Amino Transferase 44 U/L (17-59); Blood Urea Nitrogen 13 mg/dl (9-20); Carbon Dioxide 28 mmol/L (22.0-30.0); Estimated Glomerular Filt Rate 114 ml/min (>60); GFR (African American) 137 ML/MIN (>60)
[2025-04-30 08:26] LABS: Albumin/Globulin Ratio 0.5 (1.1-1.8); Alkaline Phosphatase 168 U/L (38-126); Bilirubin,Total 5.3 mg/dl (0.2-1.3); Calcium 8.4 mg/dl (8.4-10.2); Globulin 4.1 g/dL (1.3-3.2); Glucose 94 mg/dl (74-100)
== END 2025-04-30 23:59 | disposition home or self-care (01) ==
LOC: LAB 07:33
PROVIDERS: PCP Family Medicine; Visit Provider Internal Medicine Gastroenterology
DX: K72.90 Hepatic failure, unspecified without coma (principal)
CPT/HCPCS: 36415; 80053; 85025; 85610; 85730

== ENCOUNTER 2025-05-21 09:00 | Outpatient (CLI) | payer BC, SELFPAY ==
--- OUTSIDE RECORDS SUMMARY | 2025-05-21 09:03 | XMS_ITS | Encounter Summary ---
Author Organization Healthcare Address [address] [place] [address] Care Team Providers Care Reactor Technician Name Role Phone KaronUrban Primary Care Provider [phone] Ruma Hernández RIDER TICKET WORKER Unavailable Chris Medel MD Primary Care Provider [phone] Encounter Details Date Type Department Care Team (Late st Contact Info) Description 02/06/2025 Results Follow-Up [facility] [address] [facility] [address] [place] [address] Meaghan Le, RN [id number] [address] [place] [id number] Social History Tobacco Use Types Packs/Day Years [...] How often do you attend chur or roman catholic services? More than 4 times per year [...] Recorded Patient Health Questionnaire-2 Score 0 03/14/2025 [facility] of Occupat ional Health - Occupational [...] were you homeless or living in a [facility] (including now)? No 02/19/2025 Utilities Answer Date Recorded In the past 12 months has th e [employer], gas, oil, or water company threatened to [...] Care Team (Late st Contact Info) Description 06/08/2025 9:00 AM EDT Appointment [facility] Bone & Mineral Metabolism [address] [facility], [address] [place] [address] 06/08/2025 12:20 PM EDT Office Visit [facility] Bone & Mineral Metabolism [address] [facility], [address] [place] [address] Moustapha Katz MD [address] [facility] [facility] [address] [place] [address] 06/13/2025 6:45 AM EDT Clinical Support [facility] [place] [address] [facility] [address] [place] [address] 06/13/2025 8:00 AM EDT Office Visit [facility] [place] [address] [facility] [address] [place] [address] Portia Maguier MD [address] [facility] [address] [place] [address] 06/13/2025 11:30 AM EDT Appointment Cardiac Imaging [address] [place] [address] 06/13/2025 2:00 PM EDT Appointment [facility] [address] [place] [address] 10/03/2025 12:45 PM EST Office Visit Medical Office Building Urology [address] [facility], [address] [place] [address] Suhail Brock MD [address] [facility] [address] [place] [address] documented as of this encounter [...] documented as of this encounter Care Teams Reactor Technician Relationship Specialty Start Date End Date Urban Brantley DO [address] [place] [address] PCP - General 07/30/23 03/13/25 Chris Medel MD [address] [place] [address] PCP - General 03/14/25 Ruma Hernández APRN [address] [place], [place] [id number] Referring Physician Gastroenterology 07/30/23 documented as of this encounter
--- OUTSIDE RECORDS SUMMARY | 2025-05-21 09:04 | XMS_ITS | Clinical Summary ---
Author Organization [facility] Address [address] [place] [address] Care Team Providers Care Steamboat Inspector Name Role Phone Ruma Hernández [employer] Unavailable [phone] Chris Medel MD Primary Care Provider [phone] Allergies Active Allergy Reactions Criticality Noted Date Comments Lisinopril Cough Low 09/15/2021 Medications carvedilol (Coreg) 3.125 MG tabletIndication s:Cirrhosis of liver with ascites, unspecified hepatic cirrhosis type (CMS/HCC) Take 1 tablet (3.125 mg) by mouth 2 (two) times a day with meals. 60 tablet 11 4 09/13/20 25 Active Xifaxan 550 MG tablet 5 Active ergocalciferol (Vitamin D-2) 1.25 MG (67370 UT) capsule Take 1 capsule by mouth [...] mouth daily. 180 each 3 5 03/14/20 26 Active omeprazole (PriLOSEC) [address] Baez [...] Encounters Date Type Department Care Team Description 05/01/2025 Results Follow-Up [facility] [address] [place] [phone] Meaghan Le RN 04/03/2025 Results Follow-Up [facility] [address] [place] [phone] Meaghan Le RN 03/30/2025 Results Follow-Up [facility] [address] [place] [phone] Meaghan Le RN 03/14/2025 9:16 AM EDT - 03/14/2025 11:59 PM EDT Hospital Encounter [facility] [address] [place] [address] Pre-liver transplant, listed Discharge Disposition: Home or Self Care 03/14/2025 8:00 AM EDT Office Visit [facility] [address] [place] [address] Zarina Moore, PA Alcoholic cirrhosis of liver with ascites (CMS/HCC) (Primary Dx); Left inguinal hernia; Bilateral leg edema; Cirrhosis of liver with ascites, unspecified hepatic cirrhosis type (CMS/HCC); Other ascites 03/14/2025 6:59 AM EDT - 03/14/2025 9:15 AM EDT Hospital Encounter [facility] [address] [place] [address] Nephrolithiasis Discharge Disposition: Home or Self Care 03/14/2025 Travel 03/06/2025 4:00 PM EDT Office Visit Professional [facility] [address], [address] [place] [address] Moustapha Katz MD Other osteoporosis without current pathological fracture (Primary Dx); Alcoholic cirrhosis of liver with ascites (CMS/HCC); Iron overload; Obesity (BMI 35.0-39.9 without comorbidity); Vitamin D deficiency; Other ascites 03/06/2025 Telephone [facility] [place] [address], [address] [place] [address] Dulce Miller 03/05/2025 Results Follow-Up [facility] [address] [place] [address] Meaghan Le RN 03/05/2025 Travel 02/20/2025 Telephone [facility] [place] [address], [address] [place] [address] Zeferino Jiang 02/19/2025 10:30 AM EDT Consult Medical Office Building Surgical Specialties [address], [address] [place] [address] Jaquan Howell MD Alcoholic cirrhosis of liver with ascites (CMS/HCC) (Primary Dx); Left inguinal hernia; Obesity (BMI 35.0-39.9 without comorbidity); Hypertension, unspecified type 02/19/2025 Travel from Last 3 Months Immunizations Immunization Administration [...] often do you attend chur ch or cheondoism services? More than 4 times per year 02/19/2025 Do you belong to any clubs o r organizations such as pentecostal groups, unions, fraternal or athletic groups, or [...] Recorded Patient Health Questionnaire-2 Score 0 03/14/2025 [facility] Occupat ional Health - Occupational Stress [...] were you homeless or living in a penitentiary (including now)? No 02/19/2025 Utilities Answer Date [...] Info) Description 06/08/2025 9:00 AM EDT Appointment [facility] [place] [address], [address] [place] [address] 06/08/2025 12:20 PM EDT Office Visit [facility] [place] [address], [address] [place] [phone] Moustapha Katz MD [address] [place] [address] 06/13/2025 6:45 AM EDT Clinical Support [facility] [address] [place] [address] 06/13/2025 8:00 AM EDT Office Visit [facility] [address] [place] [address] Portia Maguire MD [address] [place] [address] 06/13/2025 11:30 AM EDT Appointment Cardiac Imaging [address] [place] [address] 06/13/2025 2:00 PM EDT Appointment [facility] [address] [place] [address] 10/03/2025 12:45 PM EST Office Visit Medical Office Building Urology [address], [address] [place] [address] Suhail Brock MD [address] [place] [id number] Health Maintenance Due Date Last Done Comments [...] - Risk 60-74 years 1-dose series) 2021 [id number] Vaccine ( - season) 2024 [facility]-Bone Density Scan 04/11/2025 04/11/2024 [facility]-Influenza Vaccine (#1) 2025 [facility]- SDOH Screenings 08/21/2025 [facility]-Adult SDOH [...] Diagnosis Comments COMPREHENSIVE METABOLIC PANEL, PLASMA Routine 04/30/2025 CBC W/O DIFFERENTIAL Routine 04/30/2025 PROTHROMBIN TIME(PT) / INR Routine 04/30/2025 COMPREHENSIVE METABOLIC PANEL, PLASMA Routine 04/02/2025 CBC [...] 03/05/2025 PROTHROMBIN TIME(PT) / INR Routine 03/05/2025 DEXA BONE DENSITY Routine 04/11/2024 12: 32 [...] to Health Maintenance Results * Prothrombin Time/INR (04/30/2025) Only the most recent of4 resultswithin the time period is included. External Prothrombin Time (PT) 18.0 External INR - Internormal Ratio 1.69 Blood Venous blood specimen / Unknown 04/30/2025 Result [facility] MD LAB BLOOD ORDERABLES Nadia l Result * CBC W/O Differential (04/30/2025) Only the most recent of4 resultswithin the time period is included. External WBC 5.8 External Red Blood Cell (RBC) 3.24 External Hemoglobin (Hgb) 11.20 External Hematocrit (Hct) 32.9 External Platelet Count (Plt) 60 Blood Venous blood specimen / Unknown 04/30/2025 Result [facility] LAB BLOOD ORDERABLES Nadia l Result * Comprehensive Metabolic Panel, Plasma (04/30/2025) Only the most recent of4 resultswithin the time period is included. External Glucose 94 External BUN 13 External Creatinine Blood 0.70 mg/dL External Sodium (Na) 137 mEq/L External Potassium (K) 3.8 External Chloride (Cl) 112 External Carbon Dioxide (CO2) 28 External Anion Gap (AG) 0.8 External Calcium (Ca) 8.4 External Total Protein 6.0 External Albumin 1.9 g/dL External AST (SGOT) 44 External ALT (SGPT) 30 External Alkaline Phosphatase 168 External Bilirubin Total 5.3 mg/dL External Estimated GFR 114 External EGFR (If AFR/AM) 137 Blood Venous blood specimen / Unknown 04/30/2025 Result [facility] MD LAB BLOOD ORDERABLES Nadia l Result * Hemoglobin, Blood (03/26/2025) External Hemoglobin (Hgb) 11.70 Blood Venous blood specimen / Unknown 03/26/2025 Result [facility] MD LAB BLOOD ORDERABLES Nadia l Result * Hematocrit, Blood (03/26/2025) External Hematocrit (Hct) 34.1 Blood Venous blood specimen / Unknown 03/26/2025 Historical Provider LAB BLOOD ORDERABLES Nadia l Result * Ferritin, Serum (03/26/2025) External Ferritin 77.9 Blood Venous blood specimen / Unknown 03/26/2025 Historical Provider LAB BLOOD ORDERABLES Edit ed Result - [...] are consistent with and integrated into the [place] [employer] Liver Diseases [...] Prominent lymph nodes are noted at the lyida hepatis, likely reactive. Free Fluid: Small volume [...] are consistent with and integrated into the [place] Associationfor the Study of Liver Diseases (AASLD) [...] <20 <20 ng/mL 03/15 5:41 AM EDT [facility] Alpha OH Midazolam <20 <20 ng/mL 2024 5:41 AM EDT [facility] Alpha [place] Triazolam <20 <20 ng/mL 2024 5:41 AM EDT [facility] Alprazolam <10 <10 ng/mL 03/15/2025 5:41 AM EDT [facility] Aminoclonazepam <20 <20 ng/mL 5:41 AM EDT [facility] Amphetamine <50 <50 ng/mL 03/15/2025 5:41 AM EDT [facility] Benzoylecgonine <50 <50 ng/mL 5:41 AM EDT [facility] Buprenorphine <10 <10 ng/mL 03/15/2025 5:41 AM EDT [facility] Buprenorphine Glucuronide <50 <50 ng/mL 03/15/2025 5:41 AM EDT [facility] Butalbital <50 <50 ng/mL 03/15/2025 5:41 AM EDT [facility] 9 Carboxy THC <10 <10 ng/mL 03/15/2025 5:41 AM EDT [facility] 9 Carboxy THC Glucuronide <25 <25 ng/mL 03/15/2025 5:41 AM EDT [facility] Clonazepam <10 <10 ng/mL 03/15/2025 5:41 AM EDT [facility] Codeine <50 <50 ng/mL 03/15/2025 5:41 AM EDT [facility] Codeine Glucuronide <50 <50 ng/mL 03/15 5:41 AM EDT [facility] Cyclobenzaprine <50 <50 ng/mL 5:41 AM EDT [facility] Desmethyl Tramadol <50 <50 ng/mL 2024 5:41 AM EDT [facility] Diazepam <10 <10 ng/mL 03/15/2025 5:41 AM EDT [facility] EDDP - Methadone Metabolite <50 <50 ng/mL 03/15/2025 5:41 AM EDT [facility] Fentanyl <1 <1 ng/mL 03/15/2025 5:41 AM EDT [facility] Hydrocodone <50 <50 ng/mL 03/15/2025 5:41 AM EDT [facility] Hydromorphone <50 <50 ng/mL 03/15/2025 5:41 AM EDT [facility] Hydromorphone Glucuronide <50 <50 ng/mL 03/15/2025 5:41 AM EDT [facility] Lorazepam <20 <20 ng/mL 03/15/2025 5:41 AM EDT [facility] Lorazepam Glucuronide <50 <50 ng/mL 03/15/2025 5:41 AM EDT [facility] MDA <50 <50 ng/mL 03/15/2025 5:41 AM EDT [facility] MDMA <50 <50 ng/mL 03/15/2025 5:41 AM EDT [facility] Meperidine <50 <50 ng/mL 03/15/2025 5:41 AM EDT [facility] Methadone <50 <50 ng/mL 03/15/2025 5:41 AM EDT [facility] Methamphetamine <50 <50 ng/mL 5:41 AM EDT [facility] Methylphenidate <50 <50 ng/mL 5:41 AM EDT [facility] 6 Monoacetyl morphine <10 <10 ng/mL 03/15/2025 5:41 AM EDT [facility] Morphine <50 <50 ng/mL 03/15/2025 5:41 AM EDT [facility] Morphine Glucuronide <50 <50 ng/mL 11/2024 5:41 AM EDT [facility] Naloxone <50 <50 ng/mL 03/15/2025 5:41 AM EDT [facility] Naloxone Glucuronide <50 <50 ng/mL 11/2024 5:41 AM EDT [facility] Norbuprenorphine <10 <10 ng/mL 03/15/20 5:41 AM EDT [facility] Norbuprenorphine Glucuronide <50 <50 ng/mL 03/15/2025 5:41 AM EDT [facility] Nordiazepam <20 <20 ng/mL 03/15/2025 5:41 AM EDT [facility] Norfentanyl <2 <2 ng/mL 03/15/2025 5:41 AM EDT [facility] Normeperidine <50 <50 ng/mL 03/15/2025 5:41 AM EDT [facility] PCP Quant, Ur <50 <50 ng/mL 03/15/2025 5:41 AM EDT [facility] Phenobarbital <50 <50 ng/mL 03/15/2025 5:41 AM EDT [facility] Oxazepam <20 <20 ng/mL 03/15/2025 5:41 AM EDT [facility] Oxazepam Glucuronide <50 <50 ng/mL 11/2024 5:41 AM EDT [facility] Oxycodone <50 <50 ng/mL 03/15/2025 5:41 AM EDT [facility] Oxymorphone <50 <50 ng/mL 03/15/2025 5:41 AM EDT [facility] Oxymorphone Glucuronide <50 <50 ng/mL 03/15/2025 5:41 AM EDT [facility] Secobarbital <50 <50 ng/mL 03/15/2025 5:41 AM EDT [facility] Tramadol <50 <50 ng/mL 03/15/2025 5:41 AM EDT [facility] Temazepam <20 <20 ng/mL 03/15/2025 5:41 AM EDT [facility] Temazepam Glucuronide <50 <50 ng/mL 03/15/2025 5:41 AM EDT [facility] Urine Urine specimen obtained by clean catch procedure / Unknown Non-blood Collection / Unknown 03/14/2025 6:43 AM EDT 03/14/2025 7:51 AM EDT Narrative [facility] - 03/15/2025 5:41 AM EDT [...] developed and its performance characteristics determined by [facility] in manner consistent with CLIA requirements. This test has not been cleared or approved by the FDA. Portia Maguire MD LAB URINE ORDERABLES Nadia l Result Performing Organization Address [facility] Co de Phone Number [facility] [address] [place] [address] * Alpha Fetoprotein, Serum (03/14/2025 6:43 AM EDT) Alpha Fetoprotein, Serum <2.3 <10.0 ng/mL 03/14/2025 9:07 AM EDT [facility] Blood Venous blood specimen / Unknown Venipuncture / Unknown 03/14/2025 6:43 AM EDT 03/14/2025 6:59 AM EDT Narrative [facility] - 03/14/2025 9:07 AM EDT Performed by Stacey electrochemiluminescent immunoassay which is traceable to the [address] [place] [address] IRP WHO Reference standard 72/255. Results obtained with different test methods or kits cannot be used interchangeably. Portia Maguire MD LAB BLOOD ORDERABLES Nadia l Result Performing Organization Address [facility] [place] [address] * Nicotine Cotinine Metabolite (03/14/2025 6:43 AM EDT) NICOTINE <5 <5 ng/mL 03/15/2025 8:4 3 AM EDT [facility] Cotinine <5 <5 ng/mL 03/15/2025 8:4 3 AM EDT [facility] Blood Venous blood specimen / Unknown Venipuncture / Unknown 03/14/2025 6:43 AM EDT 03/14/2025 6:59 AM EDT Narrative [facility] - 03/15/2025 8:43 AM EDT Testing performed by LC-MS/MS at the [facility] Special [facility]/Toxicology [facility]. This test was developed and its performance characteristics determined by [facility]. This assay has not been cleared by the FDA. The laboratory is regulated under CLIA as qualified to perform high-complexity testing. This test is used for clinical purposes. Portia Maguire MD LAB BLOOD ORDERABLES Nadia l Result Performing Organization Address [facility] Co de Phone Number [facility] [address] [place] [address] * Alcohol Urine (03/14/2025 6:43 AM EDT) Alcohol Urine Negative Negative 03/14/2025 2:26 PM EDT [facility] Urine Urine specimen obtained by clean catch procedure / Unknown Non-blood Collection / Unknown 03/14/2025 6:43 AM EDT 03/14/2025 7:51 AM EDT Narrative [facility] - 03/14/2025 2:26 PM EDT The correlation between urine and serum ethanol concentration is highly variable. Test performed by Gas Chromatography at the [facility] Chemistry Laboratory. This test was developed and its performance characteristics determined by [facility]. It has not been cleared or approved by the FDA.The laboratory is regulated under CLIA as qualified to perform high-complexity testing. This test is used for clinical purposes only. The correlation between urine and serum ethanol concentration is highly variable. Test performed by Gas Chromatography at the [facility]. This test was developed and its performance characteristics determined by [facility]. It has not been cleared or approved by the FDA.The laboratory is regulated under CLIA as qualified to perform high-complexity testing. This test is used for clinical purposes only. Portia Maguire MD LAB URINE ORDERABLES Nadia l Result Performing Organization Address [facility]/ZIP Co de Phone Number [facility] [address] [place] [address] * Comprehensive Urine Drug Screening, Qualitative Assay, >= 27 Drug Classes (03/14/2025 6:43 AM EDT) Acetaminophen Negative Negative 03/26/2025 9:38 AM EDT [facility] Alprazolam Negative Negative 03/26/2025 9:38 AM EDT [facility] Amantadine Negative Negative 03/26/2025 9:38 AM EDT [facility] Amitriptyline Negative Negative 03/26/2025 9:38 AM EDT [facility] Amphetamine Negative Negative 03/26/2025 9:38 AM EDT [facility] Atenolol Negative Negative 03/26/2025 9:38 AM EDT [facility] Benzoylecgonine Negative Negative 9:38 AM EDT [facility] Bisoprolol Negative Negative 03/26/2025 9:38 AM EDT [facility] Bupropion Negative Negative 03/26/2025 9:38 AM EDT [facility] Butalbital Negative Negative 03/26/2025 9:38 AM EDT [facility] Carbamazepine Negative Negative 03/26/2025 9:38 AM EDT [facility] Carisoprodol Negative Negative 03/26/2025 9:38 AM EDT [facility] Chlorpheniramine Negative Negative 03/26/20 9:38 AM EDT [facility] Citalopram Negative Negative 03/26/2025 9:38 AM EDT [facility] Clindamycin Negative Negative 03/26/2025 9:38 AM EDT [facility] Clonidine Negative Negative 03/26/2025 9:38 AM EDT [facility] Clopidogrel / Ticlopidine Negative Negative 03/26/2025 9:38 AM EDT [facility] Cocaethylene Negative Negative 03/26/2025 9:38 AM EDT [facility] Cocaine Negative Negative 03/26/2025 9:38 AM EDT [facility] Codeine Negative Negative 03/26/2025 9:38 AM EDT [facility] Cyclobenzaprine Negative Negative 9:38 AM EDT [facility] Desvenlafaxine Negative Negative 03/26/2025 9:38 AM EDT [facility] Dextromethorphan Negative Negative 03/26/20 9:38 AM EDT [facility] Diazepam Negative Negative 03/26/2025 9:38 AM EDT [facility] Diltiazem Negative Negative 03/26/2025 9:38 AM EDT [facility] Diphenhydramine Negative Negative 9:38 AM EDT [facility] Doxepine Negative Negative 03/26/2025 9:38 AM EDT [facility] Doxylamine Negative Negative 03/26/2025 9:38 AM EDT [facility] EDDP-Methadone metabolite Negative Negative 03/26/2025 9:38 AM EDT [facility] Fentanyl Negative Negative 03/26/2025 9:38 AM EDT [facility] Fluconazole Negative Negative 03/26/2025 9:38 AM EDT [facility] Fluoxetine Negative Negative 03/26/2025 9:38 AM EDT [facility] Guaifenesin Negative Negative 03/26/2025 9:38 AM EDT [facility] Haloperidol Negative Negative 03/26/2025 9:38 AM EDT [facility] Heroin/6-MARY Negative Negative 03/26/2025 9:38 AM EDT [facility] Hydrocodone Negative Negative 03/26/2025 9:38 AM EDT [facility] Hydroxyzine / Cetirizine metabolite Negative Negative 03/26/2025 9:38 AM EDT [facility] Ibuprofen Negative Negative 03/26/2025 9:38 AM EDT [facility] Imipramine Negative Negative 03/26/2025 9:38 AM EDT [facility] Ketamine Negative Negative 03/26/2025 9:38 AM EDT [facility] Labetolol Negative Negative 03/26/2025 9:38 AM EDT [facility] Lamotrigine Negative Negative 03/26/2025 9:38 AM EDT [facility] Levetiracetam Negative Negative 03/26/2025 9:38 AM EDT [facility] Lidocaine Negative Negative 03/26/2025 9:38 AM EDT [facility] MDA Negative Negative 03/26/2025 9:38 AM EDT [facility] MDMA Negative Negative 03/26/2025 9:38 AM EDT [facility] Memantine Negative Negative 03/26/2025 9:38 AM EDT [facility] Meperidine Negative Negative 03/26/2025 9:38 AM EDT [facility] Meprobamate Negative Negative 03/26/2025 9:38 AM EDT [facility] Metaxalone Negative Negative 03/26/2025 9:38 AM EDT [facility] Methamphetamine Negative Negative 9:38 AM EDT [facility] Methocarbamol Negative Negative 03/26/2025 9:38 AM EDT [facility] Methylecgonine Negative Negative 03/26/2025 9:38 AM EDT [facility] Metoclopramide Negative Negative 03/26/2025 9:38 AM EDT [facility] Metoprolol Negative Negative 03/26/2025 9:38 AM EDT [facility] Metronidazole Negative Negative 03/26/2025 9:38 AM EDT [facility] Midazolam Negative Negative 03/26/2025 9:38 AM EDT [facility] Midazolam Metabolite Negative Negative 03/15 9:38 AM EDT [facility] Mirtazapine Negative Negative 03/26/2025 9:38 AM EDT [facility] Misc Test Result Negative Negative 03/26/20 9:38 AM EDT [facility] Naproxen Negative Negative 03/26/2025 9:38 AM EDT [facility] Nefazodone Negative Negative 03/26/2025 9:38 AM EDT [facility] Norfentanyl Negative Negative 03/26/2025 9:38 AM EDT [facility] Nortriptyline Negative Negative 03/26/2025 9:38 AM EDT [facility] Ordanstron Negative Negative 03/26/2025 9:38 AM EDT [facility] Oxcarbazepine Negative Negative 03/26/2025 9:38 AM EDT [facility] Oxycodone Negative Negative 03/26/2025 9:38 AM EDT [facility] Paroxethine Negative Negative 03/26/2025 9:38 AM EDT [facility] Phenobarbital Negative Negative 03/26/2025 9:38 AM EDT [facility] Phentermine Negative Negative 03/26/2025 9:38 AM EDT [facility] Phenytoin Negative Negative 03/26/2025 9:38 AM EDT [facility] Primidone Negative Negative 03/26/2025 9:38 AM EDT [facility] Promethazine Negative Negative 03/26/2025 9:38 AM EDT [facility] Propofol Negative Negative 03/26/2025 9:38 AM EDT [facility] Propranolol Negative Negative 03/26/2025 9:38 AM EDT [facility] Quetiapine Negative Negative 03/26/2025 9:38 AM EDT [facility] Quinine Negative Negative 03/26/2025 9:38 AM EDT [facility] Rantidine Negative Negative 03/26/2025 9:38 AM EDT [facility] Sertraline Negative Negative 03/26/2025 9:38 AM EDT [facility] Spironolactone Negative Negative 03/26/2025 9:38 AM EDT [facility] Tizanidine Negative Negative 03/26/2025 9:38 AM EDT [facility] Topiramate Negative Negative 03/26/2025 9:38 AM EDT [facility] Tramadol Negative Negative 03/26/2025 9:38 AM EDT [facility] Trazadone/ Trazadone metabolite Negative Negative 03/26/2025 9:38 AM EDT [facility] Trimethoprim Negative Negative 03/26/2025 9:38 AM EDT [facility] Valproic Acid Negative Negative 03/26/2025 9:38 AM EDT [facility] Venlafaxine Negative Negative 03/26/2025 9:38 AM EDT [facility] Verapamil Negative Negative 03/26/2025 9:38 AM EDT [facility] Zolpidem Negative Negative 03/26/2025 9:38 AM EDT [facility] Xylazine Negative Negative 03/26/2025 9:38 AM EDT [facility] Urine Urine specimen obtained by clean catch procedure / Unknown Non-blood Collection / Unknown 03/14/2025 6:43 AM EDT 03/14/2025 7:51 AM EDT Narrative [facility] - 03/26/2025 9:38 AM EDT Test performed by: [employer] [employer] [address] [place] [address] us Portia Maguire MD LAB URINE ORDERABLES Nadia bon Result [facility] [address] [place] [address] * Dexa Bone Density (04/11/2024 12:32 PM [...] the non-dominant forearm was performed using a [employer] Horizon A Dual- energy X-ray Absorptiometry (DXA) [...] the non-dominant forearm was performed using a [employer] A Dual- energy X-ray Absorptiometry (DXA) scanner (software [id number]). COMPARISON/CORRELATION: No comparison. No recent correlative imaging. [...] 2 Antibody/Antigen Screen (04/11/2024 6:27 AM EDT) [facility] HIV 1 & 2 Antibody/Antigen Screen Non Reactive Non Reactive 04/11/2024 7:32 AM EDT [facility] Comment:Screening for HIV 1 & 2 antibodies, and P24 antigen is NONREACTIVE. No confirmatory testing is required. Blood Venous blood specimen / Unknown Venipuncture / Unknown 04/11/2024 6:27 AM EDT 04/11/2024 6:51 AM EDT Delilah Joshua MD LAB BLOOD ORDERABLES Final Result [facility] [address] [place] [address] * Hepatitis C Antibody (08/03/2023 7:30 AM EDT) [facility] Hepatitis C Antibody Negative Negative 08/03/2023 8:47 AM EDT [facility] Blood Venous blood specimen / Unknown Venipuncture / Unknown 08/03/2023 7:30 AM EDT 08/03/2023 8:05 AM EDT Bird Kennedy MD LAB BLOOD ORDERABLES Final Resul t [facility] [address] [place] [address] from Last 3 Months or Most Recently Relevant to Health Maintenance Insurance [facility] [address] [place] [address] ANTHEM Care Teams Steamboat Inspector Relationship Specialty Start Date End Date Chris Medel MD [address] [place] [address] PCP - General 03/14/25 Ruma Hernández APRN [address] [facility] [address] [place] [address] Referring Physician Gastroenterology 07/30/23
--- OUTSIDE RECORDS SUMMARY | 2025-05-21 09:04 | XMS_ITS | Encounter Summary ---
Author Organization Healthcare Address [address] [place] [address] Care Team Providers Care Campground Attendant Name Role Phone KaronUrban Primary Care Provider [phone] Ruma Hernández SENIOR HEALTH PHYSICS TECHNICIAN Unavailable [phone] Chris Medel MD Primary Care Provider [phone] Encounter Details Date Type Department Care Team (Late Contact Info) Description 03/22/2023 Orders Only External Location [address] [place] [address] Provider, External Social History Tobacco Use Types Packs/Day Years Used Date Smoking Tobacco: Never Assessed Sex and Gender Information Value Date Recorded Sex Assigned at Not on file Legal Sex Male 8:57 PM EDT Gender Identity Not on file Sexual Orientation Not on file documented as of this encounter Plan of Treatment Upcoming Encounters Date Type Department Care Team (Late Contact Info) Description 06/08/2025 9:00 AM EDT Appointment [facility] [address], [address] [place] [address] 06/08/2025 12:20 PM EDT Office Visit Professional [employer] [facility] [address], [address] [place] [address] Moustapha Katz MD [address] [place] [address] 06/13/2025 6:45 AM EDT Clinical Support [facility] [address] [place] [address] 06/13/2025 8:00 AM EDT Office Visit [facility] [address] [place] [address] Portia Maguire MD [address] [facility] [address] [place] [address] 06/13/2025 11:30 AM EDT Appointment Cardiac Imaging [address] [place] [address] 06/13/2025 2:00 PM EDT Appointment [facility] [address] [place] [address] 10/03/2025 12:45 PM EST Office Visit Medical Office Building Urology [address] [facility], [address] [place] [address] Suhail Brock MD [address] [facility] [address] [place] [address] documented as of this encounter [...] on filedocumented in this encounter Care Teams Campground Attendant Relationship Specialty Start Date End Date Urban Brantley DO [address] [place] [address] PCP - General 07/30/23 03/13/25 Chris Medel MD [address] [place] [address], [place] [address] PCP - General 03/14/25 Ruma Hernández APRN [address] [facility] [address] [place] [address] Referring Physician Gastroenterology 07/30/23 documented as of this encounter
--- OUTSIDE RECORDS SUMMARY | 2025-05-21 09:04 | XMS_ITS | Encounter Summary ---
Author Organization Healthcare Address [address] [place] [address] Care Team Providers Care Lead Systems Developer Name Role Phone KaronUrban Primary Care Provider [phone] Ruma Hernández ETYMOLOGY TEACHER Unavailable [phone] Chris Medel MD Primary Care Provider [phone] Encounter Details Date Type Department Care Team (Late Contact Info) Description 03/22/2023 Orders Only External Location [address] [place] [address] Provider, External Social History Tobacco [...] 06/08/2025 9:00 AM EDT Appointment [facility] [address], [address] [place] [address] 06/08/2025 12:20 PM EDT Office Visit [facility] [address], [address] [place] [address] Moustapha Katz MD [address] [place] [address] 06/13/2025 6:45 AM EDT Clinical Support [facility] [place] [address] [place] [address] 06/13/2025 8:00 AM EDT Office Visit [facility] [address] [place] [address] Portia Maguire MD [address] [facility] [address] [place] [address] 06/13/2025 11:30 AM EDT Appointment Cardiac Imaging [address] [place] [address] 06/13/2025 2:00 PM EDT Appointment [facility] [address] [place] [address] 10/03/2025 12:45 PM EST Office Visit Medical Office Building Urology [address] [facility], [address] [place] [address] Suhail Brock MD [address] [facility] [address] [place] [address] documented as of this encounter [...] on filedocumented in this encounter Care Teams Lead Systems Developer Relationship Specialty Start Date End Date Urban Brantley DO [address] [place] [address] PCP - General 07/30/23 03/13/25 Chris Medel MD [address] [place] [address], [place] [address] PCP - General 03/14/25 Ruma Hernández APRN [address] [facility] 202 [place] [address] Referring Physician Gastroenterology 07/30/23 documented as of this encounter
--- OUTSIDE RECORDS SUMMARY | 2025-05-21 09:04 | XMS_ITS | Encounter Summary ---
Author Organization Healthcare Address [address] [place] [address] Care Team Providers Care Contract Technician Name Role Phone Ruma Hernández SENIOR NETWORK SECURITY ARCHITECT Unavailable [phone] Chris Medel MD Primary Care Provider [phone] Encounter Details Date Type Department Care Team (Late st Contact Info) Description 03/30/2025 Results Follow-Up [facility] [address] [place] [address] Meaghan Le, RN HOSPITAL LIVER [id number] [address] [place] [id number] Social History Tobacco Use Types Packs/Day Years [...] How often do you attend [facility] or yarsani services? More than 4 times per year 02/19/2025 Do you belong to any clubs o r organizations such as zoroastrianism groups, unions, fraternal or athletic groups, or [...] Recorded Patient Health Questionnaire-2 Score 0 03/14/2025 [facility] - Occupational [...] any time in the past 12 m [facility], were you homeless or living in a fdc (including now)? No 02/19/2025 Utilities Answer Date [...] Upcoming Encounters Date Type Department Care Team ([facility] st Contact Info) Description 06/08/2025 9:00 AM EDT Appointment [facility] [address] [facility], [address] [place] [address] 06/08/2025 12:20 PM EDT Office Visit [facility] [address] [facility], [address] [place] [address] Moustapha Katz MD [address] [facility] [address] [place] [address] 06/13/2025 6:45 AM EDT Clinical Support [facility] [place] [address] [facility] [address] [place] [address] 06/13/2025 8:00 AM EDT Office Visit [facility] [place] [address] [facility] [address] [place] [address] Portia Maguire MD [address] [facility] [address] [place] [address] 06/13/2025 11:30 AM EDT Appointment Cardiac Imaging [address] [place] [address] 06/13/2025 2:00 PM EDT Appointment [facility] [address] [place] [address] 10/03/2025 12:45 PM EST Office Visit Medical Office Building Urology [address] [facility], [address] [place] [address] Suhail Brock MD [address] [facility] [address] [place] [address] documented as of this encounter [...] documented as of this encounter Care Teams Contract Technician Relationship Specialty Start Date End Date Chris Medel MD [address] [place] [address] PCP - General 03/14/25 Ruma Hernández APRN [address] [facility] [address] [place] [address] Referring Physician Gastroenterology 07/30/23 documented as of this encounter
--- OUTSIDE RECORDS SUMMARY | 2025-05-21 09:04 | XMS_ITS ---
Author Organization [facility] Address [address] 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
--- OUTSIDE RECORDS SUMMARY | 2025-05-21 09:04 | XMS_ITS | Encounter Summary ---
Author Organization Healthcare Address [address] [place] [address] Care Team Providers Care Surface Grinder Tender Name Role Phone KaronUrban Yael CAMARA Primary Care Provider [phone] Ruma Hernández AMBULATORY CARE Unavailable [phone] Chris Medel MD Primary Care Provider [phone] Encounter Details Date Type Department Care Team (Late st Contact Info) Description 03/05/2025 Results Follow-Up [facility] [address] [facility] [address] [place] [address] Meaghan Le, RN [facility] LIVER [id number] [address] [place] [id number] Social History Tobacco Use Types Packs/Day Years [...] How often do you attend chur or islam services? More than 4 times per year 02/19/2025 Do you belong to any clubs o r organizations such as gnosticist groups, unions, fraternal or athletic groups, or [...] Recorded Patient Health Questionnaire-2 Score 0 03/14/2025 [facility]at ional Health - [...] any time in the past 12 m [facility], were you homeless or living in a fci (including now)? No 02/19/2025 Utilities Answer Date Recorded In the past 12 months has th e [employer], gas, oil, or water company threatened to [...] Miscellaneous Notes * Result Encounter Note - Thakral, David, MD - 03/06/2025 10:22 PM EDT Labs reviewed. MELD 20. No changes. * Result Encounter Note - Meaghan Le RN - 03/05/2025 4:19 PM EDT Monthly MELD labs documented in this encounter Plan of Treatment Upcoming Encounters Date Type Department Care Team (Late st Contact Info) Description 06/08/2025 9:00 AM EDT Appointment [facility] [address] [facility], [address] [place] [address] 06/08/2025 12:20 PM EDT Office Visit [facility] [address] [facility], [address] [place] [address] Moustapha Katz MD [address] [place] [address] 06/13/2025 6:45 AM EDT Clinical Support [facility] [place] [address] [facility] [address] [place] [address] 06/13/2025 8:00 AM EDT Office Visit [facility] [place] [address] [facility] [address] [place] [address] Portia Maguire MD [address] [facility] [address] [place] [address] 06/13/2025 11:30 AM EDT Appointment Cardiac Imaging [address] [place] [address] 06/13/2025 2:00 PM EDT Appointment [facility] Radiology [address] [place] [address] 10/03/2025 12:45 PM EST Office Visit Medical Office Building Urology [address] [facility], [address] [place] [address] Suhail Brock MD [address] [facility] [address] [place] [address] documented as of this encounter [...] documented as of this encounter Care Teams Surface Grinder Tender Relationship Specialty Start Date End Date Urban Brantley DO [address] [place] [address] PCP - General 07/30/23 03/13/25 Chris Medel MD [address] [place] [address] PCP - General 03/14/25 [address]án[address] APRN [facility] [address] [place], [place] [address] Referring Physician Gastroenterology 07/30/23 documented as of this encounter
--- OUTSIDE RECORDS SUMMARY | 2025-05-21 09:04 | XMS_ITS | Data Portability ---
Author Organization [place] & JULIANA Louie ADMIN Address [address] [place] [phone] Assessment Encounter Date Assessment Date Assessment LastModified [...] in punctuate muhammad and or spelling, etc. [email or web address] Not available 2023 11:56:25 Plan of Treatment [...] WBC 4.1 K/uL 4.0-10 .5 Not Available [facility] ([facility] [address] [place], [address], 02/10/2023 10:08:24 02/11/20 23 02/10/2023 CBC AUTO NO DIFF (HEMO GRAM) RBC 4.0 M/mm3 4.7-6. 1 low Not Available [facility] ([facility]) [address] [place], [address], 02/10/2023 10:08:24 02/11/20 23 02/10/2023 CBC AUTO NO DIFF (HEMO GRAM) HGB 13.8 gm/dL 13.5-1 8.0 Not Available [facility] ([facility]) [address] [facility], [place], [address], 02/10/2023 10:08:24 02/11/20 23 02/10/2023 CBC AUTO NO DIFF (HEMO GRAM) HCT 40.3 % 42.0-5 2.0 low Not Available [facility] ([facility]) [address] [place], [address], 02/10/2023 10:08:24 02/11/20 23 02/10/2023 CBC AUTO NO DIFF (HEMO GRAM) MCV 101.8 fL 78-100 high Not Available [facility] ([facility]) [address] [place], [address], 02/10/2023 10:08:24 02/11/20 23 02/10/2023 CBC AUTO NO DIFF (HEMO GRAM) MCH 34.8 pg 27-31 high Not Available [facility] ([facility]) [address], [place], [address], 02/10/2023 10:08:24 02/11/20 23 02/10/2023 CBC AUTO NO DIFF (HEMO GRAM) MCHC 34.2 g/dL 32-36 Not Available [facility] ([facility]) [address], [place], [address], 02/10/2023 10:08:24 02/11/20 23 02/10/2023 CBC AUTO NO DIFF (HEMO GRAM) RDW 15.9 % 11.5-1 4.0 high Not Available [facility] ([facility]) [address], [place], [address], 02/10/2023 10:08:24 02/11/20 23 02/10/2023 CBC AUTO NO DIFF (HEMO GRAM) platelet count 71 K/uL 150-45 0 low Not Available [facility] ([facility]) [address] [facility], [place], [address], 02/10/2023 10:08:24 02/11/20 23 02/10/2023 CBC AUTO NO DIFF (HEMO GRAM) manual differential NO Not Available [facility] ([facility]) [address] [place], [address], 02/10/2023 10:08:24 02/11/20 23 02/10/2023 COMP METAB OLIC PANEL sodium 139 mmol/ L 136-14 5 Not Available [facility] ([facility]) [address] [place], [address], 02/10/2023 10:40:35 02/11/20 23 02/10/2023 COMP METAB OLIC PANEL potassium 3.7 mmol/ L 3.6-5. 0 Not Available [facility] ([facility]) [address], [place], [address], 02/10/2023 10:40:35 02/11/20 23 02/10/2023 COMP METAB OLIC PANEL chloride 105 mmol/ L 98-107 Not Available [facility] ([facility]) [address], [place], [address], 02/10/2023 10:40:35 02/11/20 23 02/10/2023 COMP METAB OLIC PANEL carbon dioxide 26.3 mmol/ L 21.0-3 2.0 Not Available [facility] ([facility]) [address], [place], [address], 02/10/2023 10:40:35 02/11/20 23 02/10/2023 COMP METAB OLIC PANEL anion gap 11.4 Not Available [facility] ([facility]) [address] , [place], [address], 02/10/2023 10:40:35 02/11/20 23 02/10/2023 COMP METAB OLIC PANEL glucose 108 mg/dL 70-120 Not Available [facility] ([facility]) [address] , [place], [address], 02/10/2023 10:40:35 02/11/20 23 02/10/2023 COMP METAB OLIC PANEL BUN 5 mg/dL 7-18 low Not Available [facility] ([facility]) [address] , [place], [address], 02/10/2023 10:40:35 02/11/20 23 02/10/2023 COMP METAB OLIC PANEL creatinine 0.7 mg/dL 0.6-1. 3 Not Available [facility] ([facility]) [address] , [place], [address], 02/10/2023 10:40:35 02/11/20 23 02/10/2023 COMP METAB OLIC PANEL glomerular filtration rate >60 mlper min 60- Not Available [facility] ([facility]) [address], [place], [address], 02/10/2023 10:40:35 02/11/20 23 02/10/2023 COMP METAB OLIC PANEL total protein 7.4 g/dL 6.4-8. 2 Not Available [facility] ([facility]) [address], [place], [address], 02/10/2023 10:40:35 02/11/20 23 02/10/2023 COMP METAB OLIC PANEL albumin 2.5 g/dL 3.4-5. 0 low Not Available [facility] ([facility]) [address], [place], [address], 02/10/2023 10:40:35 02/11/20 23 02/10/2023 COMP METAB OLIC PANEL globulin 4.9 Not Available [facility] ([facility]) [address], [place], [address], 02/10/2023 10:40:35 02/11/20 23 02/10/2023 COMP METAB OLIC PANEL alb/glob ratio 0.5 0.7-2 low Not Available [facility] ([facility]) [address], [place], [address], 02/10/2023 10:40:35 02/11/20 23 02/10/2023 COMP METAB OLIC PANEL calcium 8.1 mg/dL 8.5-10 .5 low Not Available [facility] ([facility]) [address] , [place], [address], 02/10/2023 10:40:35 02/11/20 23 02/10/2023 COMP METAB OLIC PANEL bilirubin total 4.00 mg/dL 0.10-1 .00 high Not Available [facility] ([facility]) [address] , [place], [address], 02/10/2023 10:40:35 02/11/20 23 02/10/2023 COMP METAB OLIC PANEL AST (SGOT) 75 U/L 0-37 high Not Available [facility] ([facility]) [address], [place], [address], 02/10/2023 10:40:35 02/11/20 23 02/10/2023 COMP METAB OLIC PANEL ALT (SGPT) 38 U/L 0-65 Not Available [facility] ([facility]) [address], [place], [address], 02/10/2023 10:40:35 02/11/20 23 02/10/2023 COMP METAB OLIC PANEL alk phosphatase 334 U/L 46-116 high Not Available [facility] ([facility]) [address], [place], [address], 02/10/2023 10:40:35 Result Notes None recorded. Procedures Surgical History Date Name Laterality Status Provider Name and Address Organization Details Recorded Time Hernia Repair completed Rafa CARLOS [facility] & [place] 2023 11:10:15 Imaging Results None recorded. Procedure [...] index (BMI) Body weight Heart rate Systolic And Diastolic Provider Name and Address Organization Details Last Updated DateTime 2023 170.18 cm 30.2 kg/m2 52642.33 g 77 /min 154/94 mm[Hg] Rafa CARLOS [facility] & [place] 2023 11:23:09 Social History Question Answer Notes LastModified by Organizat ion Details LastModified Time Tobacco Smoking Status Former Smoker TERRANCE Quintana [facility] & [place] 2023 11:10:32 When Did You Quit Smoking? 6-10yearssin celastcigare tte rsharpbeckham Information not available 2023 Sex: Unknown Functional Status None recorded. Mental Status None recorded. Family History Nothing Reported. Medical History No medical history recorded. Past Encounters Encounter ID Performer Location Encounter Start Date Encounter Closed Date Diagnosis/Indication Diagnosis SNOMED-CT Code Diagnosis ICD10 Code Diagnosis Note [id number] Jeffrey Chu MD [facility] Bariatric s and Adv Surg [address] [facility] [address] [place] [address] 2023 10:52:58 2023 11:57:37 Left inguinal hernia 836048770 K40.90 Umbilical hernia 1883751 [id number] K42.9 Health Concerns Section Related Observation LastModified by Organization Detai ls LastModified Time None Recorded Concern Status LastModified by Organization Details LastModified Time None Recorded Advance Directives Directive None Recorded Payers Insurance Date Sequence Insurance Name Policy Number Policy Mcdaniel Covered Member ID Mcdaniel Member ID Guarantor Name 2023 1 [employer] David Pop [id number] David Pop 02/12/2023 1 [employer] (POS) David Pop [id number] David Pop
--- OUTSIDE RECORDS SUMMARY | 2025-05-21 09:04 | XMS_ITS | Encounter Summary ---
Author Organization Healthcare Address [address] [place] [address] Care Team Providers Care Vamp Creaser Name Role Phone Urban Brantley DO Primary Care Provider [phone] Ruma Hernández SILK SCREEN PRINTING RACKER Unavailable [phone] Chris Medel MD Primary Care Provider [phone] Encounter Details Date Type Department Care Team (Late Contact Info) Description 12/30/2023 Orders Only External Location [address] [place] [address] Urban Stafford MD [address] [facility] [address] [place] [address] Social History Tobacco Use Types Packs/Day Years [...] 06/08/2025 9:00 AM EDT Appointment [facility] [address] [facility], [address] [place] [address] 06/08/2025 12:20 PM EDT Office Visit [facility] [address] [facility], [address] [place] [address] Moustapha Katz MD [address] [facility] [address] [place] [address] 06/13/2025 6:45 AM EDT Clinical Support [facility] [address] [facility] [address] [place] [address] 06/13/2025 8:00 AM EDT Office Visit [facility] [address] [facility] [address] [place] [address] Portia Maguire MD [address] [facility] [address] [place] [address] 06/13/2025 11:30 AM EDT Appointment Cardiac Imaging [address] [place] [address] 06/13/2025 2:00 PM EDT Appointment [facility] [address] [place] [address] 10/03/2025 12:45 PM EST Office Visit Medical Office Building Urology [address] [facility] [address], [address] [place] [address] Suhail Brock MD [address] [facility] [address] [place] [address] documented as of this encounter [...] documented as of this encounter Care Teams Vamp Creaser Relationship Specialty Start Date End Date Urban Brantley DO [address] [place] [address] PCP - General 07/30/23 03/13/25 Chris Medel MD [address] [place] [address] PCP - General 03/14/25 Ruma Hernández APRN [address] [facility] [address] [place] [address] Referring Physician Gastroenterology 07/30/23 documented as of this encounter
--- OUTSIDE RECORDS SUMMARY | 2025-05-21 09:04 | XMS_ITS | Encounter Summary ---
Author Organization Healthcare Address [address] [place] [address] Care Team Providers Care Medical Physics Professor Name Role Phone Ruma Hernández NIGHT WAREHOUSE MANAGER Unavailable [phone] Chris Medel MD Primary Care Provider [phone] Encounter Details Date Type Department Care Team (Late st Contact Info) Description 04/03/2025 Results [facility]-Up [facility] [address] [place] [address] Meaghan Le, RN HOSPITAL LIVER [id number] [address] [place] [id number] Social History Tobacco Use Types Packs/Day Years [...] week 02/19/2025 How often do you attend [facility] or mormonism services? More than 4 times per year 02/19/2025 Do you belong to any clubs o r organizations such as bahai groups, unions, fraternal or athletic groups, or [...] any time in the past 12 m [facility], were you homeless or living in a retirement (including now)? No 02/19/2025 Utilities Answer Date [...] Info) Description 06/08/2025 9:00 AM EDT Appointment [facility] [address] [facility], [address] [place] [address] 06/08/2025 12:20 PM EDT Office Visit [facility] [address] [facility], [address] [place] [address] Moustapha Katz MD [address] [facility] [address] [place] [address] 06/13/2025 6:45 AM EDT Clinical Support [facility] [place] [address] [facility] [address] [place] [address] 06/13/2025 8:00 AM EDT Office Visit [facility] [address] [facility] [address] [place] [address] Portia Maguire MD [address] [facility] [address] [place] [address] 06/13/2025 11:30 AM EDT Appointment Cardiac Imaging [address] [place] [address] 06/13/2025 2:00 PM EDT Appointment [facility] [address] [place] [address] 10/03/2025 12:45 PM EST Office Visit Medical Office Building Urology [address] [facility], [address] [place] [address] Suhail Brock MD [address] [place] [address] documented as of this encounter Visit Diagnoses [...] documented as of this encounter Care Teams Medical Physics Professor Relationship Specialty Start Date End Date Chris Medel MD [address], [place] [id number] PCP - General 03/14/25 Ruma Hernández APRN [address] [address] Referring Physician Gastroenterology 07/30/23 documented as of this encounter
--- OUTSIDE RECORDS SUMMARY | 2025-05-21 09:04 | XMS_ITS | Encounter Summary ---
Author Organization Healthcare Address [address] [place] [address] Care Team Providers Care Stone Processing Machine Operator Name Role Phone Ruma Hernández Freddie DIVERSIFIED CROPS FARMWORKER Unavailable [phone] Chris Medel MD Primary Care Provider [phone] Encounter Details Date Type Department Care Team (Late st Contact Info) Description 05/01/2025 Results Follow-Up [facility] [address] [place] [address] Meaghan Le, RN HOSPITAL LIVER [id number] [address] [place] [id number] Social History Tobacco Use Types Packs/Day Years [...] week 02/19/2025 How often do you attend [facility] or holiness services? More than 4 times per year 02/19/2025 Do you belong to any clubs o r organizations such as yazidi groups, unions, fraternal or athletic groups, or [...] Recorded Patient Health Questionnaire-2 Score 0 03/14/2025 [facility] - Occupational [...] any time in the past 12 m [facility], were you homeless or living in [...] Encounter Note - Zarina Moore PA - 05/01/2025 5:21 PM EDT MELD 21, no changes * Result Encounter Note - Meaghan Le RN - 05/01/2025 10:24 AM EDT MELD labs documented in this encounter Plan of Treatment Upcoming Encounters Date Type Department Care Team (Late st Contact Info) Description 06/08/2025 9:00 AM EDT Appointment [facility] [address] [facility], [address] [place] [address] 06/08/2025 12:20 PM EDT Office Visit [facility] [address] [facility], [address] [place] [address] Moustapha Katz MD [address] [facility] [address] [place] [address] 06/13/2025 6:45 AM EDT Clinical Support [facility] [place] [address] [facility] [address] [place] [address] 06/13/2025 8:00 AM EDT Office Visit [facility] [address] [facility] [address] [place] [address] Portia Maguire MD [address] [facility] [address] [place] [address] 06/13/2025 11:30 AM EDT Appointment Cardiac Imaging [address] [place] [address] 06/13/2025 2:00 PM EDT Appointment [facility] [address] [place] [address] 10/03/2025 12:45 PM EST Office Visit Medical Office Building Urology [address] [facility], [address] [place] [address] Suhail Brock MD [address] [place] [address] documented as of this encounter Visit Diagnoses [...] documented as of this encounter Care Teams Stone Processing Machine Operator Relationship Specialty Start Date End Date Chris Medel MD [address] [place], [place] [id number] PCP - General 03/14/25 Ruma Hernández APRN [address] [address] Referring Physician Gastroenterology 07/30/23 documented as of this encounter
--- OUTSIDE RECORDS SUMMARY | 2025-05-21 09:04 | XMS_ITS | Encounter Summary ---
Author Organization Healthcare Address [address] [place] [address] Care Team Providers Care Deburr Technician Name Role Phone KaronUrban Primary Care Provider [phone] Ruma Hernández ENHANCED ENVIRONMENTAL OPERATOR Unavailable [phone] Chris Medel MD Primary Care Provider [phone] Encounter Details Date Type Department Care Team (Late Contact Info) Description 05/09/2023 Orders Only External Location [address] [place] [address] Provider, External Social History Tobacco [...] 06/08/2025 9:00 AM EDT Appointment [facility] [address], [address] [place] [address] 06/08/2025 12:20 PM EDT Office Visit [facility] [address], [address] [place] [address] Moustapha Katz MD [address] [place] [address] 06/13/2025 6:45 AM EDT Clinical Support [facility] [place] [address] [place] [address] 06/13/2025 8:00 AM EDT Office Visit [facility] [place] [address] [place] [address] Portia Maguire MD [address] [facility] [address] [place] [address] 06/13/2025 11:30 AM EDT Appointment Cardiac Imaging [address] [place] [address] 06/13/2025 2:00 PM EDT Appointment [facility] [address] [place] [address] 10/03/2025 12:45 PM EST Office Visit Medical Office Building Urology [address] [facility], [address] [place] [address] Suhail Brock MD [address] [facility] [address] [place] [address] documented as of this encounter [...] on filedocumented in this encounter Care Teams Deburr Technician Relationship Specialty Start Date End Date Urban Brantley DO [address] [place] [address] PCP - General 07/30/23 03/13/25 Chris Medel MD [address] [place] [address] PCP - General 03/14/25 Ruma Hernández APRN [address] [place] [address] [address] [place] [address] Referring Physician Gastroenterology 07/30/23 documented as of this encounter
--- NOTE | 2025-05-21 09:12 | PC.NURSE ---
0912-collected labs via venipuncture stick in right ac with butterfly needle;pt to wait on labs for possible therapeutic phlebotomy if hgb >11 and ferritin >100
--- NOTE | 2025-05-21 09:13 | XR_ITS ---
FINAL REPORT TECHNIQUE: Chest PA & Lateral CLINICAL HISTORY: Cough/congestion COMPARISON: None FINDINGS: 2 views of the chest were performed. The heart size is normal. The mediastinum is within normal limits. There is mild patchy airspace opacity at the lung bases probably due to acute bibasilar pneumonia. There are no pleural effusions. There is no pneumothorax. The bony thorax appears intact. IMPRESSION: Mild patchy airspace opacity at the lung bases probably due to acute bibasilar pneumonia. Reviewed, Interpreted and Dictated by Olman Velez MD Transcribed by Elva Maya Authenticated and [facility]
[2025-05-21 09:17] LABS: Hematocrit 30.8 % (42.0-52.0); Hemoglobin 10.4 g/dL (14.1-18.0)
[2025-05-21 10:07] LABS: Ferritin 147 ng/ml (17.9-464)
--- NOTE | 2025-05-21 10:35 | PC.NURSE ---
1035-pt not to receive therapeutic phlebotomy; hbg 10.4
== END 2025-05-21 10:34 | disposition home or self-care (01) ==
LOC: INF 09:01
PROVIDERS: PCP Family Medicine; Visit Provider Internal Medicine
DX: R79.89 Other specified abnormal findings of blood chemistry (principal); E83.19 Other disorders of iron metabolism
CPT/HCPCS: 36415; 71046; 82728; 85014; 85018

== ENCOUNTER 2025-05-25 07:16 | Outpatient (CLI) | payer BC, SELFPAY ==
--- OUTSIDE RECORDS SUMMARY | 2025-05-25 07:21 | XMS_ITS | Encounter Summary ---
Author Organization Healthcare Address [address] [place] [address] Care Team Providers Care Dry Paste Supervisor Name Role Phone Ruma Hernández TRUCK REPAIR SUPERVISOR Unavailable Chris Medel MD Primary Care Provider [phone] Encounter Details Date Type Department Care Team (Late st Contact Info) Description 04/03/2025 Results Follow-Up [facility] [address] [place] [address] Meaghan Le, RN HOSPITAL LIVER [id number] [address] [place] [phone] Social History Tobacco Use Types Packs/Day Years [...] week 02/19/2025 How often do you attend [facility] or judaism services? More than 4 times per year 02/19/2025 Do you belong to any clubs o r organizations such as yazidism groups, unions, fraternal or athletic groups, or [...] Recorded Patient Health Questionnaire-2 Score 0 03/14/2025 [facility] - [...] time in the past 12 m [facility], were you homeless or living in a [...] Info) Description 06/08/2025 9:00 AM EDT Appointment [facility] [address] [facility], [address] [place] [address] 06/08/2025 12:20 PM EDT Office Visit [facility] [address] [facility], [address] [place] [address] Moustapha Katz MD [address] [facility] [address] [place] [address] 06/13/2025 6:45 AM EDT Clinical Support [facility] [address] [facility] [address] [place] [address] 06/13/2025 7:15 AM EDT Appointment [facility] Radiology [address], 1[address] [place] [address] 06/13/2025 8:00 AM EDT Office Visit [facility] [address] [facility] [address] [place] [address] Portia Maguire MD [address] [facility] [address] [place] [address] 06/13/2025 11:30 AM EDT Appointment Cardiac Imaging [address] [place] [address] 06/13/2025 2:00 PM EDT Appointment [facility] [address] [place] [address] 10/03/2025 12:45 PM EST Office Visit Medical Office Building Urology [address] [facility], [address] [place] [address] Suhail Brock MD [address] [place] [address] documented as of this encounter Visit Diagnoses [...] documented as of this encounter Care Teams Dry Paste Supervisor Relationship Specialty Start Date End Date Chris Medel MD [address] [place] [address] PCP - General 03/14/25 Ruma Hernández APRN [address] [address] Referring Physician Gastroenterology 07/30/23 documented as of this encounter
--- OUTSIDE RECORDS SUMMARY | 2025-05-25 07:21 | XMS_ITS | Encounter Summary ---
Author Organization Healthcare Address [address] [place] [address] Care Team Providers Care Financial Associate Name Role Phone Ruma Hernández RECORDS ANALYSIS MANAGER Unavailable [phone] Chris Medel MD Primary Care Provider [phone] Encounter Details Date Type Department Care Team (Late st Contact Info) Description 03/30/2025 Results Follow-Up [facility] [address] [place] [address] Meaghan Le, RN HOSPITAL LIVER [id number] [address] [place] [id number] Social History Tobacco Use Types Packs/Day Years [...] often do you attend [facility] or protestant services? More than 4 times [...] any time in the past 12 m [facility], were you homeless or living in a assisted (including now)? No 02/19/2025 Utilities Answer Date [...] Upcoming Encounters Date Type Department Care Team ([facility] st Contact Info) Description 06/08/2025 9:00 AM EDT Appointment [facility] [address] [facility], [address] [place] [address] 06/08/2025 12:20 PM EDT Office Visit [facility] [address] [facility], [address] [place] [address] Moustapha Katz MD [address] [facility] [address] [place] [address] 06/13/2025 6:45 AM EDT Clinical Support [facility] [address] [facility] [address] [place] [address] 06/13/2025 7:[address] [facility] Radiology [address], 1[address] [place] [address] 06/13/2025 8:00 AM EDT Office Visit [facility] [place] [address] [place] [address] Portia Maguire MD [address] [place] [address] 06/13/2025 11:30 AM EDT Appointment Cardiac Imaging [address] [place] [address] 06/13/2025 2:00 PM EDT Appointment [facility] [address] [place] [address] 10/03/2025 12:45 PM EST Office Visit Medical Office Building Urology [address] [facility], [address] [place] [address] Suhail Brock MD [address] [facility] [address] [place] [address] documented as of this encounter [...] documented as of this encounter Care Teams Financial Associate Relationship Specialty Start Date End Date Chris Medel MD [address] [place] [address] PCP - General 03/14/25 Ruma Hernández APRN [address] [address] Referring Physician Gastroenterology 07/30/23 documented as of this encounter
--- OUTSIDE RECORDS SUMMARY | 2025-05-25 07:21 | XMS_ITS | Encounter Summary ---
Author Organization Healthcare Address [address] [place] [address] Care Team Providers Care Loan Processing Supervisor Name Role Phone KaronUrban Primary Care Provider [phone] Ruma Hernández INTERNET MARKETING MANAGER Unavailable [phone] Chris Medel MD Primary Care Provider [phone] Encounter Details Date Type Department Care Team (Late Contact Info) Description 03/22/2023 Orders Only External Location [address] [place] [address] Provider, External Social History Tobacco [...] 06/08/2025 9:00 AM EDT Appointment [facility] [address], [address] [place] [address] 06/08/2025 12:20 PM EDT Office Visit [facility] [address], [address] [place] [address] Moustapha Katz MD [address] [place] [address] 06/13/2025 6:45 AM EDT Clinical Support [facility] Trans[facility] [address] [place] [address] 06/13/2025 7:15 AM EDT Appointment [facility] Radiology [address] 1[address] [place] [address] 06/13/2025 8:00 AM EDT Office Visit [facility] Trans[facility] [address] [place] [address] Portia Maguire MD [address] [place] [address] 06/13/2025 11:30 AM EDT Appointment Cardiac Imaging [address] [place] [address] 06/13/2025 2:00 PM EDT Appointment [facility] [address] [place] [address] 10/03/2025 12:45 PM EST Office Visit Medical Office Building Urology [address] [facility], [address] [place] [address] Suhail Brock MD [address] [place] [address] documented as of this encounter Procedures Procedure [...] on filedocumented in this encounter Care Teams Loan Processing Supervisor Relationship Specialty Start Date End Date Urban Brantley DO [address] [place] [address] PCP - General 07/30/23 03/13/25 Chris Medel MD [address] [place] [address] PCP - General 03/14/25 Ruma Hernández APRN [address] [place] [address] Referring Physician Gastroenterology 07/30/23 documented as of this encounter
--- OUTSIDE RECORDS SUMMARY | 2025-05-25 07:21 | XMS_ITS | Data Portability ---
Author Organization [place] - [place] & JULIANA Louie ADMIN Address [address] [place] [address] Assessment Encounter Date Assessment Date Assessment LastModified [...] in punctuate muhammad and or spelling, etc. [email or web address] Not available 2023 11:56:25 Plan of Treatment [...] WBC 4.1 K/uL 4.0-10 .5 Not Available [facility] ([facility]) [address] [place], [address], 02/10/2023 10:08:24 02/11/20 23 02/10/2023 CBC AUTO NO DIFF (HEMO GRAM) RBC 4.0 M/mm3 4.7-6. 1 low Not Available [facility] ([facility]) [address] [place], [address], 02/10/2023 10:08:24 02/11/20 23 02/10/2023 CBC AUTO NO DIFF (HEMO GRAM) HGB 13.8 gm/dL 13.5-1 8.0 Not Available [facility] ([facility]) [address] [facility], [place], [address], 02/10/2023 10:08:24 02/11/20 23 02/10/2023 CBC AUTO NO DIFF (HEMO GRAM) HCT 40.3 % 42.0-5 2.0 low Not Available [facility] ([facility]) [address] [place], [address], 02/10/2023 10:08:24 02/11/20 23 02/10/2023 CBC AUTO NO DIFF (HEMO GRAM) MCV 101.8 fL 78-100 high Not Available [facility] ([facility]) [address] [place], [address], 02/10/2023 10:08:24 02/11/20 23 02/10/2023 CBC AUTO NO DIFF (HEMO GRAM) MCH 34.8 pg 27-31 high Not Available [facility] ([facility]) [address], [place], [address], 02/10/2023 10:08:24 02/11/20 23 02/10/2023 CBC AUTO NO DIFF (HEMO GRAM) MCHC 34.2 g/dL 32-36 Not Available [facility] ([facility]) [address], [place], [address], 02/10/2023 10:08:24 02/11/20 23 02/10/2023 CBC AUTO NO DIFF (HEMO GRAM) RDW 15.9 % 11.5-1 4.0 high Not Available [facility] ([facility]) [address], [place], [address], 02/10/2023 10:08:24 02/11/20 23 02/10/2023 CBC AUTO NO DIFF (HEMO GRAM) platelet count 71 K/uL 150-45 0 low Not Available [facility] ([facility]) [address] [facility], [place], [address], 02/10/2023 10:08:24 02/11/20 23 02/10/2023 CBC AUTO NO DIFF (HEMO GRAM) manual differential NO Not Available [facility] ([facility]) [address] [place], [address], 02/10/2023 10:08:24 02/11/20 23 02/10/2023 COMP METAB OLIC PANEL sodium 139 mmol/ L 136-14 5 Not Available [facility] ([facility]) [address] [place], [address], 02/10/2023 10:40:35 02/11/20 23 02/10/2023 COMP METAB OLIC PANEL potassium 3.7 mmol/ L 3.6-5. 0 Not Available [facility] ([facility]) [address], [place], [address], 02/10/2023 10:40:35 02/11/20 23 02/10/2023 COMP METAB OLIC PANEL chloride 105 mmol/ L 98-107 Not Available [facility] ([facility]) [address], [place], [address], 02/10/2023 10:40:35 02/11/20 23 02/10/2023 COMP METAB OLIC PANEL carbon dioxide 26.3 mmol/ L 21.0-3 2.0 Not Available [facility] ([facility]) [address], [place], [address], 02/10/2023 10:40:35 02/11/20 23 02/10/2023 COMP METAB OLIC PANEL anion gap 11.4 Not Available [facility] ([facility]) [address] , [place], [address], 02/10/2023 10:40:35 02/11/20 23 02/10/2023 COMP METAB OLIC PANEL glucose 108 mg/dL 70-120 Not Available [facility] ([facility]) [address] , [place], [address], 02/10/2023 10:40:35 02/11/20 23 02/10/2023 COMP METAB OLIC PANEL BUN 5 mg/dL 7-18 low Not Available [facility] ([facility]) [address] , [place], [address], 02/10/2023 10:40:35 02/11/20 23 02/10/2023 COMP METAB OLIC PANEL creatinine 0.7 mg/dL 0.6-1. 3 Not Available [facility] ([facility]) [address] , [place], [address], 02/10/2023 10:40:35 02/11/20 23 02/10/2023 COMP METAB OLIC PANEL glomerular filtration rate >60 mlper min 60- Not Available [facility] ([facility]) [address], [place], [address], 02/10/2023 10:40:35 02/11/20 23 02/10/2023 COMP METAB OLIC PANEL total protein 7.4 g/dL 6.4-8. 2 Not Available [facility] ([facility]) [address], [place], [address], 02/10/2023 10:40:35 02/11/20 23 02/10/2023 COMP METAB OLIC PANEL albumin 2.5 g/dL 3.4-5. 0 low Not Available [facility] ([facility]) [address], [place], [address], 02/10/2023 10:40:35 02/11/20 23 02/10/2023 COMP METAB OLIC PANEL globulin 4.9 Not Available [facility] ([facility]) [address], [place], [address], 02/10/2023 10:40:35 02/11/20 23 02/10/2023 COMP METAB OLIC PANEL alb/glob ratio 0.5 0.7-2 low Not Available [facility] ([facility]) [address], [place], [address], 02/10/2023 10:40:35 02/11/20 23 02/10/2023 COMP METAB OLIC PANEL calcium 8.1 mg/dL 8.5-10 .5 low Not Available [facility] ([facility]) [address] , [place], [address], 02/10/2023 10:40:35 02/11/20 23 02/10/2023 COMP METAB OLIC PANEL bilirubin total 4.00 mg/dL 0.10-1 .00 high Not Available [facility] ([facility]) [address] , [place], [address], 02/10/2023 10:40:35 02/11/20 23 02/10/2023 COMP METAB OLIC PANEL AST (SGOT) 75 U/L 0-37 high Not Available [facility] ([facility]) [address], [place], [address], 02/10/2023 10:40:35 02/11/20 23 02/10/2023 COMP METAB OLIC PANEL ALT (SGPT) 38 U/L 0-65 Not Available [facility] ([facility]) [address], [place], [address], 02/10/2023 10:40:35 02/11/20 23 02/10/2023 COMP METAB OLIC PANEL alk phosphatase 334 U/L 46-116 high Not Available [facility] ([facility]) [address], [place], [address], 02/10/2023 10:40:35 Result Notes None recorded. Procedures Surgical History Date Name Laterality Status Provider Name and Address Organization Details Recorded Time Hernia Repair completed Rafa CARLOS [facility] & [place] 2023 11:10:15 Imaging Results None recorded. Procedure [...] Updated DateTime 2023 170.18 cm 30.2 kg/m2 31436.33 g 77 /min 154/94 mm[Hg] Rafa CARLOS [facility] & [place] 2023 11:23:09 Social History Question Answer Notes LastModified by Organizat ion Details LastModified Time Tobacco Smoking Status Former Smoker TERRANCE Quintana [facility] & [place] 2023 11:10:32 When Did You Quit Smoking? 6-10yearssin [facility] Information not available 2023 Sex: Unknown Functional Status None recorded. Mental Status None recorded. Family History Nothing Reported. Medical History No medical history recorded. Past Encounters Encounter ID Performer Location Encounter Start Date Encounter Closed Date Diagnosis/Indication Diagnosis SNOMED-CT Code Diagnosis ICD10 Code Diagnosis Note [id number] Jeffrey Chu MD [facility] Bariatric s and Adv Surg [address] [facility] [address] [place] [address] 2023 10:52:58 2023 11:57:37 Left inguinal hernia 209098427 K40.90 Umbilical hernia 3096540 07 K42.9 Health Concerns Section Related Observation LastModified by Organization Detai ls LastModified Time None Recorded Concern Status LastModified by Organization Details LastModified Time None Recorded Advance Directives Directive None Recorded Payers Insurance Date Sequence Insurance Name Policy Number Policy Mcdaniel Covered Member ID Mcdaniel Member ID Guarantor Name 2023 1 [employer] David Pop [id number] David Pop 02/12/2023 1 [employer] (POS) David Pop [id number] David Pop
--- OUTSIDE RECORDS SUMMARY | 2025-05-25 07:21 | XMS_ITS | Encounter Summary ---
Author Organization Healthcare Address [address] [place] [address] Care Team Providers Care Design Tech Name Role Phone KaronUrban Primary Care Provider [phone] Ruma Hernández RN URGENT CARE Unavailable [phone] Chris Medel MD Primary Care Provider [phone] Encounter Details Date Type Department Care Team (Late Contact Info) Description 03/22/2023 Orders Only External Location [address] [place] [address] Provider, External Social History Tobacco [...] 06/08/2025 9:00 AM EDT Appointment [facility] [address], [address] [place] [address] 06/08/2025 12:20 PM EDT Office Visit [facility] [address], [address] [place] [address] Moustapha Katz MD [address] [place] [address] 06/13/2025 6:45 AM EDT Clinical Support [facility] [address] [place] [address] 06/13/2025 7:15 AM EDT Appointment [facility] [address] [place] [address] 06/13/2025 8:00 AM EDT Office Visit [facility] [address] [place] [address] Portia Maguire MD [address] [place] [address] 06/13/2025 11:30 AM EDT Appointment Cardiac Imaging [address] [place] [address] 06/13/2025 2:00 PM EDT Appointment [facility] [address] [place] [address] 10/03/2025 12:45 PM EST Office Visit Medical Office Building Urology [address] [facility], [address] [place] [address] Suhail Brock MD [address] [place] [address] documented as of this encounter Procedures Procedure [...] on filedocumented in this encounter Care Teams Design Tech Relationship Specialty Start Date End Date Urban Brantley DO [address] [place] [address] PCP - General 07/30/23 03/13/25 Chris Medel MD [address] [place] [address] PCP - General 03/14/25 Ruma Hernández APRN [address] [place] [address] Referring Physician Gastroenterology 07/30/23 documented as of this encounter
--- OUTSIDE RECORDS SUMMARY | 2025-05-25 07:21 | XMS_ITS | Encounter Summary ---
Author Organization Healthcare Address [address] [place] [address] Care Team Providers Care Bread Packer Name Role Phone Ruma Hernández SHOT TUBE MACHINE TENDER Unavailable [phone] Chris Medel MD Primary Care Provider [phone] Encounter Details Date Type Department Care Team (Late st Contact Info) Description 05/22/2025 Telephone [facility] [address] [facility] [address] [place] [address] Meaghan Le, RN HOSPITAL LIVER [id number] [address] [id number] Social History Tobacco Use Types Packs/Day Years [...] do you attend [facility] or [facility] services? More than 4 times per year [...] Recorded Patient Health Questionnaire-2 Score 0 03/14/2025 [facility] - [...] money to buy more. Never true 02/20/20 Within the past 12 months, t he [...] any time in the past 12 m [facility], were you homeless or living in a [...] encounter Miscellaneous Notes * Telephone Encounter - Meaghan Le RN - 05/22/2025 3:56 PM EDT Rec'd return call from pts . He has been diagnosed with pneumonia. Provider notified and pt inactivated for now. He has RTC 06/13/25 and we will reassess documented in this encounter Plan of Treatment Upcoming Encounters Date Type Department Care Team (Late st Contact Info) Description 06/08/2025 9:00 AM EDT Appointment [facility] [address], [address] [place] [address] 06/08/2025 12:20 PM EDT Office Visit [facility] [address] [facility], [address] [place] [address] Moustapha Katz MD [address] [facility] [address] [place] [address] 06/13/2025 6:45 AM EDT Clinical Support [facility] [place] [address] [facility] [address] [place] [address] 06/13/2025 7:15 AM EDT Appointment [facility] [address] [place] [address] 06/13/2025 8:00 AM EDT Office Visit [facility] [place] [address] [facility] [address] [place] [address] Portia Maguire MD [address] [facility] [address] [place] [address] 06/13/2025 11:30 AM EDT Appointment Cardiac Imaging [address] [place] [address] 06/13/2025 2:00 PM EDT Appointment [facility] [address] [place] [address] 10/03/2025 12:45 PM EST Office Visit Medical Office Building Urology [address] [facility], [address] [place] [address] Suhail Brock MD [address] [facility] [address] [place] [address] Scheduled Orders Name Type Priority Associated Diagnoses Orde r Schedule XR Chest 2 Views Imaging Routine Pre-liver transplant, listed Expected: 06/13/2025 (Approximate), Expires: 11/23/2026 documented as of this encounter Visit Diagnoses Diagnosis Pre-liver transplant, listed- Primary documented in this encounter Additional Health Concerns Assessment Noted Time PHQ-9 Depression Total Score: 0 10/04/20 24 12:32 PM EST A fall risk assessment has been complete d for the patient 03/14/2025 7:31 AM EDT A Body Mass Index follow-up plan has been documented for the patient 03/14/2025 10:10 AM EDT documented as of this encounter Care Teams Bread Packer Relationship Specialty Start Date End Date Chris Medel MD [address] [place] [address] PCP - General 03/14/25 Ruma Hernández APRN [address] [place] [address] Referring Physician Gastroenterology 07/30/23 documented as of this encounter
--- OUTSIDE RECORDS SUMMARY | 2025-05-25 07:21 | XMS_ITS | Encounter Summary ---
Author Organization Healthcare Address [address] [place] [address] Care Team Providers Care It Teacher Name Role Phone Ruma Hernández Freddie TOOL RADIAL DRILL PRESS SET UP OPERATOR Unavailable [phone] Chris Medel MD Primary Care Provider [phone] Encounter Details Date Type Department Care Team (Late st Contact Info) Description 05/01/2025 Results Follow-Up [facility] [address] [place] [address] Meaghan Le, RN HOSPITAL LIVER [id number] [address] [id number] Social History Tobacco Use Types Packs/Day Years [...] week 02/19/2025 How often do you attend [facility] or [facility] services? More than 4 times per year [...] Recorded Patient Health Questionnaire-2 Score 0 03/14/2025 [facility] [...] any time in the past 12 [facility], were you homeless or living [...] Info) Description 06/08/2025 9:00 AM EDT Appointment [facility] [address] [facility], [address] [place] [address] 06/08/2025 12:20 PM EDT Office Visit [facility] [address] [facility], [address] [place] [address] Moustapha Katz MD [address] [facility] [address] [place] [address] 06/13/2025 6:45 AM EDT Clinical Support [facility] [address] [facility] [address] [place] [address] 06/13/2025 7:15 AM EDT Appointment [facility] [address] [place] [address] 06/13/2025 8:00 AM EDT Office Visit [facility] [address] [facility] [address] [place] [address] Portia Maguire MD [address] [facility] [address] [place] [address] 06/13/2025 11:30 AM EDT Appointment Cardiac Imaging [address] [place] [address] 06/13/2025 2:00 PM EDT Appointment [facility] [address] [place] [address] 10/03/2025 12:45 PM EST Office Visit Medical Office Building Urology [address] [facility], [address] [place] [address] Suhail Brock MD [address] [place] [address] documented as of this encounter Visit Diagnoses [...] documented as of this encounter Care Teams It Teacher Relationship Specialty Start Date End Date Chris Medel MD [address] [place] [address] PCP - General 03/14/25 Ruma Hernández APRN [address] [address] Referring Physician Gastroenterology 07/30/23 documented as of this encounter
--- OUTSIDE RECORDS SUMMARY | 2025-05-25 07:21 | XMS_ITS | Clinical Summary ---
Author Organization [facility] Address [address] [place] [address] Care Team Providers Care Eyelet Operator Name Role Phone Ruma Hernández BUSINESS RISK CONSULTANT Unavailable [phone] Chris Medel MD Primary Care Provider [phone] Allergies Active Allergy Reactions Criticality Noted Date Comments Lisinopril Cough Low 09/15/2021 Medications carvedilol (Coreg) 3.125 MG tabletIndication s:Cirrhosis of liver with ascites, unspecified hepatic cirrhosis type (CMS/HCC) Take 1 tablet (3.125 mg) by mouth 2 (two) times a day with meals. 60 tablet 11 4 09/13/20 25 Active Xifaxan 550 MG tablet 5 Active ergocalciferol (Vitamin D-2) 1.25 MG (84185 UT) capsule Take 1 capsule by mouth [...] Encounters Date Type Department Care Team Description 05/22/2025 Telephone [facility] [place] [address] [place] [phone] Meaghan Le RN 05/01/2025 Results Follow-Up [facility] [place] [address] [place] [phone] Meaghan Le RN 04/03/2025 Results Follow-Up [facility] [place] [address] [place] [phone] Meaghan Le RN 03/30/2025 Results Follow-Up [facility] [place] [address] [place] [phone] Meaghan Le RN 03/14/2025 9:16 AM EDT - 03/14/2025 11:59 PM EDT Hospital Encounter [facility] [address] [place] [address] Pre-liver transplant, listed Discharge Disposition: Home or Self Care 03/14/2025 8:00 AM EDT Office Visit [facility] [place] [address] [facility] [address] [place] [phone] Zarina Moore, PA Alcoholic cirrhosis of liver with ascites (CMS/HCC) (Primary Dx); Left inguinal hernia; Bilateral leg edema; Cirrhosis of liver with ascites, unspecified hepatic cirrhosis type (CMS/HCC); Other ascites 03/14/2025 6:59 AM EDT - 03/14/2025 9:15 AM EDT Hospital Encounter [facility] [address] [place] [address] Nephrolithiasis Discharge Disposition: Home or Self Care 03/14/2025 Travel 03/06/2025 4:00 PM EDT Office Visit [facility] [address] , [address] [place] [address] Moustapha Katz MD Other osteoporosis without current pathological fracture (Primary Dx); Alcoholic cirrhosis of liver with ascites (CMS/HCC); Iron overload; Obesity (BMI 35.0-39.9 without comorbidity); Vitamin D deficiency; Other ascites 03/06/2025 Telephone [facility] [address] , [address] [place] [address] Dulce Miller B 03/05/2025 Results Follow-Up [facility] [address] [facility] [address] [place] [phone] Meaghan Le RN 03/05/2025 Travel from Last 3 Months Immunizations Immunization [...] 02/19/2025 How often do you attend [facility] or [facility] services? More than 4 times per year 02/19/2025 Do you belong to any clubs o r organizations such as worship groups, unions, fraternal or athletic groups, or [...] Recorded Patient Health Questionnaire-2 Score 0 03/14/2025 [facility] - Occupational Stress Questionnaire Answer Date [...] in the past 12 m [facility], were you homeless or living in a [place] health care facility (including now)? No 02/19/2025 Utilities Answer Date Recorded In the past 12 months has th e [employer], gas, oil, or water [employer] threatened to shut off services in your [...] Info) Description 06/08/2025 9:00 AM EDT Appointment [facility] [address] [facility], [address] [place] [phone] 06/08/2025 12:20 PM EDT Office Visit [facility] [address] [facility], [address] [place] [phone] Moustapha Katz MD [address] [place] [phone] 06/13/2025 6:45 AM EDT Clinical Support [facility] [address] [facility] [address] [place] [address] 06/13/2025 7:15 AM EDT Appointment [facility] [address] [place] [address] 06/13/2025 8:00 AM EDT Office Visit [facility] [address] [facility] [address] [place] [address] Portia Maguire MD [address] [facility] [address] [place] [address] 06/13/2025 11:30 AM EDT Appointment Cardiac Imaging [address] [place] [address] 06/13/2025 2:00 PM EDT Appointment [facility] [address] [place] [address] 10/03/2025 12:45 PM EST Office Visit Medical [facility] Urology [address] [facility], [address] [place] [address] Suhail Brock MD [address] [place] [phone] Health Maintenance Due Date Last Done Comments [...] - Risk 60-74 years 1-dose series) 2021 [id number] Vaccine ( - season) 2024 UKY-Bone Density [...] Blood Venous blood specimen / Unknown 04/30/2025 Historical Provider LAB BLOOD ORDERABLES Nadia l Result * CBC W/O Differential (04/30/2025) Only the most recent of4 resultswithin the time period is included. External WBC 5.8 External Red Blood Cell (RBC) 3.24 External Hemoglobin (Hgb) 11.20 External Hematocrit (Hct) 32.9 External Platelet Count (Plt) 60 Blood Venous blood specimen / Unknown 04/30/2025 Result [facility] MD LAB BLOOD ORDERABLES Nadia l Result [...] Venous blood specimen / Unknown 04/30/2025 Result [facility] MD LAB BLOOD ORDERABLES Nadia l Result * Hemoglobin, Blood (03/26/2025) Pathologist [facility] External Hemoglobin (Hgb) 11.70 Blood Venous blood specimen / Unknown 03/26/2025 Result [facility] MD LAB BLOOD ORDERABLES Nadia l Result * Hematocrit, Blood (03/26/2025) Pathologist [facility] External Hematocrit (Hct) 34.1 Blood Venous blood specimen / Unknown 03/26/2025 us Historical Provider MD LAB BLOOD ORDERABLES Nadia l Result * Ferritin, Serum (03/26/2025) External Ferritin 77.9 Blood Venous blood specimen / Unknown 03/26/2025 Historical Provider MD LAB BLOOD ORDERABLES Edit ed Result [...] are consistent with and integrated into the [employer] [employer] [...] are consistent with and integrated into the [place] [employer] Liver Diseases (AASLD) [...] <20 <20 ng/mL 03/15 5:41 AM EDT [facility] Alpha OH Midazolam <20 <20 ng/mL 2024 5:41 AM EDT [facility] Alpha [place] Triazolam <20 <20 ng/mL 2024 5:41 AM EDT [facility] Alprazolam <10 <10 ng/mL 03/15/2025 5:41 AM EDT [facility] Aminoclonazepam <20 <20 ng/mL 5:41 AM EDT [facility] Amphetamine <50 <50 ng/mL 03/15/2025 5:41 AM EDT [facility] Benzoylecgonine <50 <50 ng/mL 5:41 AM EDT [facility] Buprenorphine <10 <10 ng/mL 03/15/2025 5:41 AM EDT [facility] Buprenorphine Glucuronide <50 <50 ng/mL 03/15/2025 5:41 AM EDT [facility] Butalbital <50 <50 ng/mL 03/15/2025 5:41 AM EDT [facility] 9 Carboxy THC <10 <10 ng/mL 03/15/2025 5:41 AM EDT [facility] 9 Carboxy THC Glucuronide <25 <25 ng/mL 03/15/2025 5:41 AM EDT [facility] Clonazepam <10 <10 ng/mL 03/15/2025 5:41 AM EDT [facility] Codeine <50 <50 ng/mL 03/15/2025 5:41 AM EDT [facility] Codeine Glucuronide <50 <50 ng/mL 03/15 5:41 AM EDT [facility] Cyclobenzaprine <50 <50 ng/mL 5:41 AM EDT [facility] Desmethyl Tramadol <50 <50 ng/mL 2024 5:41 AM EDT [facility] Diazepam <10 <10 ng/mL 03/15/2025 5:41 AM EDT [facility] EDDP - Methadone Metabolite <50 <50 ng/mL 03/15/2025 5:41 AM EDT [facility] Fentanyl <1 <1 ng/mL 03/15/2025 5:41 AM EDT [facility] Hydrocodone <50 <50 ng/mL 03/15/2025 5:41 AM EDT [facility] Hydromorphone <50 <50 ng/mL 03/15/2025 5:41 AM EDT [facility] Hydromorphone Glucuronide <50 <50 ng/mL 03/15/2025 5:41 AM EDT [facility] Lorazepam <20 <20 ng/mL 03/15/2025 5:41 AM EDT [facility] Lorazepam Glucuronide <50 <50 ng/mL 03/15/2025 5:41 AM EDT [facility] MDA <50 <50 ng/mL 03/15/2025 5:41 AM EDT [facility] MDMA <50 <50 ng/mL 03/15/2025 5:41 AM EDT [facility] Meperidine <50 <50 ng/mL 03/15/2025 5:41 AM EDT [facility] Methadone <50 <50 ng/mL 03/15/2025 5:41 AM EDT [facility] Methamphetamine <50 <50 ng/mL 5:41 AM EDT [facility] Methylphenidate <50 <50 ng/mL 5:41 AM EDT [facility] 6 Monoacetyl morphine <10 <10 ng/mL 03/15/2025 5:41 AM EDT [facility] Morphine <50 <50 ng/mL 03/15/2025 5:41 AM EDT [facility] Morphine Glucuronide <50 <50 ng/mL 11/2024 5:41 AM EDT [facility] Naloxone <50 <50 ng/mL 03/15/2025 5:41 AM EDT [facility] Naloxone Glucuronide <50 <50 ng/mL 11/2024 5:41 AM EDT [facility] Norbuprenorphine <10 <10 ng/mL 03/15/20 5:41 AM EDT [facility] Norbuprenorphine Glucuronide <50 <50 ng/mL 03/15/2025 5:41 AM EDT [facility] Nordiazepam <20 <20 ng/mL 03/15/2025 5:41 AM EDT [facility] Norfentanyl <2 <2 ng/mL 03/15/2025 5:41 AM EDT [facility] Normeperidine <50 <50 ng/mL 03/15/2025 5:41 AM EDT [facility] PCP Quant, Ur <50 <50 ng/mL 03/15/2025 5:41 AM EDT [facility] Phenobarbital <50 <50 ng/mL 03/15/2025 5:41 AM EDT [facility] Oxazepam <20 <20 ng/mL 03/15/2025 5:41 AM EDT [facility] Oxazepam Glucuronide <50 <50 ng/mL 11/2024 5:41 AM EDT [facility] Oxycodone <50 <50 ng/mL 03/15/2025 5:41 AM EDT [facility] Oxymorphone <50 <50 ng/mL 03/15/2025 5:41 AM EDT [facility] Oxymorphone Glucuronide <50 <50 ng/mL 03/15/2025 5:41 AM EDT [facility] Secobarbital <50 <50 ng/mL 03/15/2025 5:41 AM EDT [facility] Tramadol <50 <50 ng/mL 03/15/2025 5:41 AM EDT [facility] Temazepam <20 <20 ng/mL 03/15/2025 5:41 AM EDT [facility] Temazepam Glucuronide <50 <50 ng/mL 03/15/2025 5:41 AM EDT [facility] Urine Urine specimen obtained by clean catch procedure / Unknown Non-blood Collection / Unknown 03/14/2025 6:43 AM EDT 03/14/2025 7:51 AM EDT Narrative [facility] - 03/15/2025 5:41 AM EDT [...] developed and its performance characteristics determined by [email or web address] in manner consistent with CLIA requirements. This test has not been cleared or approved by the FDA. us Portia Maguire MD LAB URINE ORDERABLES Nadia l Result Performing Organization Address [facility] Co de Phone Number [facility] [address] [place] [address] * Alpha Fetoprotein, Serum (03/14/2025 6:43 AM EDT) Alpha Fetoprotein, Serum <2.3 <10.0 ng/mL 03/14/2025 9:07 AM EDT [facility] Blood Venous blood specimen / Unknown Venipuncture / Unknown 03/14/2025 6:43 AM EDT 03/14/2025 6:59 AM EDT Narrative [facility] - 03/14/2025 9:07 AM EDT Performed by St[employer] electrochemiluminescent immunoassay which is traceable to the [address] [place] [address] WHO Reference standard 72/255. Results obtained with different test methods or kits cannot be used interchangeably. Portia Maguire MD LAB BLOOD ORDERABLES Nadia l Result Performing Organization Address [facility] de Phone Number [facility] [address] [place] [address] * Nicotine Cotinine Metabolite (03/14/2025 6:43 AM EDT) NICOTINE <5 <5 ng/mL 03/15/2025 8:4 3 AM EDT [facility] Cotinine <5 <5 ng/mL 03/15/2025 8:4 3 AM EDT [facility] Blood Venous blood specimen / Unknown Venipuncture / Unknown 03/14/2025 6:43 AM EDT 03/14/2025 6:59 AM EDT Narrative [facility] - 03/15/2025 8:43 AM EDT Testing performed by LC-MS/MS at the [facility]oxicology [facility]. This test was developed and its performance characteristics determined by [email or web address]. This assay has not been cleared by the FDA. The laboratory is regulated under CLIA as qualified to perform high-complexity testing. This test is used for clinical purposes. Portia Maguire MD LAB BLOOD ORDERABLES Nadia l Result Performing Organization Address [facility] Co de Phone Number [facility] [address] [place] [address] * Alcohol Urine (03/14/2025 6:43 AM EDT) Alcohol Urine Negative Negative 03/14/2025 2:26 PM EDT [facility] Urine Urine specimen obtained by clean catch procedure / Unknown Non-blood Collection / Unknown 03/14/2025 6:43 AM EDT 03/14/2025 7:51 AM EDT Narrative [facility] - 03/14/2025 2:26 PM EDT The correlation between urine and serum ethanol concentration is highly variable. Test performed by Gas Chromatography at the [facility]. This test was developed and its performance characteristics determined by [facility]. It has not been cleared or approved by the FDA.The laboratory is regulated under CLIA as qualified to perform high-complexity testing. This test is used for clinical purposes only. The correlation between urine and serum ethanol concentration is highly variable. Test performed by Gas Chromatography at the [facility]. This test was developed and its performance characteristics determined by [facility]. It has not been cleared or approved by the FDA.The laboratory is regulated under CLIA as qualified to perform high-complexity testing. This test is used for clinical purposes only. Portia Maguire MD LAB URINE ORDERABLES Nadia l Result Performing Organization Address [facility] Co de Phone Number [facility] [address] [place] [address] * Comprehensive Urine Drug Screening, Qualitative Assay, >= 27 Drug Classes (03/14/2025 6:43 AM EDT) Acetaminophen Negative Negative 03/26/2025 9:38 AM EDT [facility] Alprazolam Negative Negative 03/26/2025 9:38 AM EDT [facility] Amantadine Negative Negative 03/26/2025 9:38 AM EDT [facility] Amitriptyline Negative Negative 03/26/2025 9:38 AM EDT [facility] Amphetamine Negative Negative 03/26/2025 9:38 AM EDT [facility] Atenolol Negative Negative 03/26/2025 9:38 AM EDT [facility] Benzoylecgonine Negative Negative 9:38 AM EDT [facility] Bisoprolol Negative Negative 03/26/2025 9:38 AM EDT [facility] Bupropion Negative Negative 03/26/2025 9:38 AM EDT [facility] Butalbital Negative Negative 03/26/2025 9:38 AM EDT [facility] Carbamazepine Negative Negative 03/26/2025 9:38 AM EDT [facility] Carisoprodol Negative Negative 03/26/2025 9:38 AM EDT [facility] Chlorpheniramine Negative Negative 03/26/20 9:38 AM EDT [facility] Citalopram Negative Negative 03/26/2025 9:38 AM EDT [facility] Clindamycin Negative Negative 03/26/2025 9:38 AM EDT [facility] Clonidine Negative Negative 03/26/2025 9:38 AM EDT [facility] Clopidogrel / Ticlopidine Negative Negative 03/26/2025 9:38 AM EDT [facility] Cocaethylene Negative Negative 03/26/2025 9:38 AM EDT [facility] Cocaine Negative Negative 03/26/2025 9:38 AM EDT [facility] Codeine Negative Negative 03/26/2025 9:38 AM EDT [facility] Cyclobenzaprine Negative Negative 9:38 AM EDT [facility] Desvenlafaxine Negative Negative 03/26/2025 9:38 AM EDT [facility] Dextromethorphan Negative Negative 03/26/20 9:38 AM EDT [facility] Diazepam Negative Negative 03/26/2025 9:38 AM EDT [facility] Diltiazem Negative Negative 03/26/2025 9:38 AM EDT [facility] Diphenhydramine Negative Negative 9:38 AM EDT [facility] Doxepine Negative Negative 03/26/2025 9:38 AM EDT [facility] Doxylamine Negative Negative 03/26/2025 9:38 AM EDT [facility] EDDP-Methadone metabolite Negative Negative 03/26/2025 9:38 AM EDT [facility] Fentanyl Negative Negative 03/26/2025 9:38 AM EDT [facility] Fluconazole Negative Negative 03/26/2025 9:38 AM EDT [facility] Fluoxetine Negative Negative 03/26/2025 9:38 AM EDT [facility] Guaifenesin Negative Negative 03/26/2025 9:38 AM EDT [facility] Haloperidol Negative Negative 03/26/2025 9:38 AM EDT [facility] Heroin/6-MARY Negative Negative 03/26/2025 9:38 AM EDT [facility] Hydrocodone Negative Negative 03/26/2025 9:38 AM EDT [facility] Hydroxyzine / Cetirizine metabolite Negative Negative 03/26/2025 9:38 AM EDT [facility] Ibuprofen Negative Negative 03/26/2025 9:38 AM EDT [facility] Imipramine Negative Negative 03/26/2025 9:38 AM EDT [facility] Ketamine Negative Negative 03/26/2025 9:38 AM EDT [facility] Labetolol Negative Negative 03/26/2025 9:38 AM EDT [facility] Lamotrigine Negative Negative 03/26/2025 9:38 AM EDT [facility] Levetiracetam Negative Negative 03/26/2025 9:38 AM EDT [facility] Lidocaine Negative Negative 03/26/2025 9:38 AM EDT [facility] MDA Negative Negative 03/26/2025 9:38 AM EDT [facility] MDMA Negative Negative 03/26/2025 9:38 AM EDT [facility] Memantine Negative Negative 03/26/2025 9:38 AM EDT [facility] Meperidine Negative Negative 03/26/2025 9:38 AM EDT [facility] Meprobamate Negative Negative 03/26/2025 9:38 AM EDT [facility] Metaxalone Negative Negative 03/26/2025 9:38 AM EDT [facility] Methamphetamine Negative Negative 9:38 AM EDT [facility] Methocarbamol Negative Negative 03/26/2025 9:38 AM EDT [facility] Methylecgonine Negative Negative 03/26/2025 9:38 AM EDT [facility] Metoclopramide Negative Negative 03/26/2025 9:38 AM EDT [facility] Metoprolol Negative Negative 03/26/2025 9:38 AM EDT [facility] Metronidazole Negative Negative 03/26/2025 9:38 AM EDT [facility] Midazolam Negative Negative 03/26/2025 9:38 AM EDT [facility] Midazolam Metabolite Negative Negative 03/15 9:38 AM EDT [facility] Mirtazapine Negative Negative 03/26/2025 9:38 AM EDT [facility] Misc Test Result Negative Negative 03/26/20 9:38 AM EDT [facility] Naproxen Negative Negative 03/26/2025 9:38 AM EDT [facility] Nefazodone Negative Negative 03/26/2025 9:38 AM EDT [facility] Norfentanyl Negative Negative 03/26/2025 9:38 AM EDT [facility] Nortriptyline Negative Negative 03/26/2025 9:38 AM EDT [facility] Ordanstron Negative Negative 03/26/2025 9:38 AM EDT [facility] Oxcarbazepine Negative Negative 03/26/2025 9:38 AM EDT [facility] Oxycodone Negative Negative 03/26/2025 9:38 AM EDT [facility] Paroxethine Negative Negative 03/26/2025 9:38 AM EDT [facility] Phenobarbital Negative Negative 03/26/2025 9:38 AM EDT [facility] Phentermine Negative Negative 03/26/2025 9:38 AM EDT [facility] Phenytoin Negative Negative 03/26/2025 9:38 AM EDT [facility] Primidone Negative Negative 03/26/2025 9:38 AM EDT [facility] Promethazine Negative Negative 03/26/2025 9:38 AM EDT [facility] Propofol Negative Negative 03/26/2025 9:38 AM EDT [facility] Propranolol Negative Negative 03/26/2025 9:38 AM EDT [facility] Quetiapine Negative Negative 03/26/2025 9:38 AM EDT [facility] Quinine Negative Negative 03/26/2025 9:38 AM EDT [facility] Rantidine Negative Negative 03/26/2025 9:38 AM EDT [facility] Sertraline Negative Negative 03/26/2025 9:38 AM EDT [facility] Spironolactone Negative Negative 03/26/2025 9:38 AM EDT [facility] Tizanidine Negative Negative 03/26/2025 9:38 AM EDT [facility] Topiramate Negative Negative 03/26/2025 9:38 AM EDT [facility] Tramadol Negative Negative 03/26/2025 9:38 AM EDT [facility] Trazadone/ Trazadone metabolite Negative Negative 03/26/2025 9:38 AM EDT [facility] Trimethoprim Negative Negative 03/26/2025 9:38 AM EDT [facility] Valproic Acid Negative Negative 03/26/2025 9:38 AM EDT [facility] Venlafaxine Negative Negative 03/26/2025 9:38 AM EDT [facility] Verapamil Negative Negative 03/26/2025 9:38 AM EDT [facility] Zolpidem Negative Negative 03/26/2025 9:38 AM EDT [facility] Xylazine Negative Negative 03/26/2025 9:38 AM EDT [facility] Urine Urine specimen obtained by clean catch procedure / Unknown Non-blood Collection / Unknown 03/14/2025 6:43 AM EDT 03/14/2025 7:51 AM EDT Narrative [facility] - 03/26/2025 9:38 AM EDT Test performed by: [employer] [address] [place] [address] us Portia Maguire MD LAB URINE ORDERABLES Nadia l Result [facility] [address] [place] [address] * Dexa Bone Density (04/11/2024 12:32 PM [...] the non-dominant forearm was performed using a Hoverink Horizon A Dual- energy X-ray Absorptiometry (DXA) [...] the non-dominant forearm was performed using a MobiDoughrizon A Dual- energy X-ray Absorptiometry (DXA) scanner (software [id number]). COMPARISON/CORRELATION: No comparison. No recent correlative imaging. [...] Rex Shepherd MD on 04/11/2024 1:01 PM us Delilah Joshua MD IM DXA PROCEDURES Final R esult * HIV 1 & 2 Antibody/Antigen Screen (04/11/2024 6:27 AM EDT) [facility] HIV 1 & 2 Antibody/Antigen Screen Non Reactive Non Reactive 04/11/2024 7:32 AM EDT [facility] Comment:Screening for HIV 1 & 2 antibodies, and P24 antigen is NONREACTIVE. No confirmatory testing is required. Blood Venous blood specimen / Unknown Venipuncture / Unknown 04/11/2024 6:27 AM EDT 04/11/2024 6:51 AM EDT Delilah Joshua MD LAB BLOOD ORDERABLES Final Result [facility] [address] [place] [address] * Hepatitis C Antibody (08/03/2023 7:30 AM EDT) [facility] Hepatitis C Antibody Negative Negative 08/03/2023 8:47 AM EDT [facility] Blood Venous blood specimen / Unknown Venipuncture / Unknown 08/03/2023 7:30 AM EDT 08/03/2023 8:05 AM EDT Bidr Kennedy MD LAB BLOOD ORDERABLES Final Resul t Performing Organization Address City/[facility] Co de Phone Number [facility] [address] [place] [address] from Last 3 Months or Most Recently Relevant to Health Maintenance Insurance [facility] [address] [place] [address] ANTHEM Care Teams Eyelet Operator Relationship Specialty Start Date End Date Chris Medel MD [address] [place] [address] PCP - General 03/14/25 Ruma Hernández APRN [address] [facility] [address] [place] [address] Referring Physician Gastroenterology 07/30/23
--- OUTSIDE RECORDS SUMMARY | 2025-05-25 07:21 | XMS_ITS | Encounter Summary ---
Author Organization Healthcare Address [address] [place] [address] Care Team Providers Care Insulation Inspector Name Role Phone KaronUrban Primary Care Provider [phone] Ruma Hernández BUTTERMILK DRIER OPERATOR Unavailable [phone] Chris Medel MD Primary Care Provider [phone] Encounter Details Date Type Department Care Team (Late Contact Info) Description 05/09/2023 Orders Only External Location [address] [place] [address] Provider, External Social History Tobacco [...] 06/08/2025 9:00 AM EDT Appointment [facility] [place] [facility] [address], [address] [place] [address] 06/08/2025 12:20 PM EDT Office Visit Professional [employer] [place] [facility] [address], [address] [place] [address] Moustapha Katz MD [address] [place] [address] 06/13/2025 6:45 AM EDT Clinical Support [facility] [address] [place] [address] 06/13/2025 7:15 AM EDT Appointment [facility] [address], 1[address] [place] [address] 06/13/2025 8:00 AM EDT Office Visit [facility] [address] [place] [address] Portia Maguire MD [address] [place] [address] 06/13/2025 11:30 AM EDT Appointment Cardiac Imaging [address] [place] [address] 06/13/2025 2:00 PM EDT Appointment [facility] [address] [place] [address] 10/03/2025 12:45 PM EST Office Visit Medical Office Building Urology [address] [facility], [address] [place] [address] Suhail Brock MD [address] [facility] [address] [place] [address] documented as of this encounter Procedures Procedure [...] on filedocumented in this encounter Care Teams Insulation Inspector Relationship Specialty Start Date End Date Urban Brantley DO [address] [place] [address] PCP - General 07/30/23 03/13/25 Chris Medel MD [address] [place] [address] PCP - General 03/14/25 Ruma Hernández APRN [address] [place] [address] Referring Physician Gastroenterology 07/30/23 documented as of this encounter
--- OUTSIDE RECORDS SUMMARY | 2025-05-25 07:21 | XMS_ITS ---
Author Organization [facility] Address [address] 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
--- OUTSIDE RECORDS SUMMARY | 2025-05-25 07:21 | XMS_ITS | Encounter Summary ---
Author Organization Healthcare Address [address] [place] [address] Care Team Providers Care Cab Starter Name Role Phone Urban Brantley DO Primary Care Provider [phone] Ruma Hernández HOT MOLDER Unavailable [phone] Chris Medel MD Primary Care Provider [phone] Encounter Details Date Type Department Care Team (Late Contact Info) Description 12/30/2023 Orders Only External Location [address] [place] [address] Urban Stafford MD [address] [facility] [address] [place] [address] Social History Tobacco Use Types Packs/Day [...] 06/08/2025 9:00 AM EDT Appointment [facility] [place] [facility] [address] [facility], [address] [place] [address] 06/08/2025 12:20 PM EDT [facility] Visit [facility] [address] [facility], [address] [place] [address] Moustapha Katz MD [address] [facility] [address] [place] [address] 06/13/2025 6:45 AM EDT Clinical Support [facility] [address] [facility] [address] [place] [address] 06/13/2025 7:15 AM EDT Appointment [facility] Radiology [address], 1st [place] [address] 06/13/2025 8:00 AM EDT Office Visit [facility] [address] [facility] [address] [place] [address] Portia Maguire MD [address] [facility] [address] [place] [address] 06/13/2025 11:30 AM EDT Appointment Cardiac Imaging [address] [place] [address] 06/13/2025 2:00 PM EDT Appointment [facility] [address] [place] [address] 10/03/2025 12:45 PM EST Office Visit Medical Office Building Urology [address] [facility], [address] [place] [address] Suhail Brock MD [address] [facility] [address] [place] [address] documented as of this encounter [...] documented as of this encounter Care Teams Cab Starter Relationship Specialty Start Date End Date Urban Brantley DO [address] [place], [place] [phone] PCP - General 07/30/23 03/13/25 Chris Medel MD [address] [place] [address] PCP - General 03/14/25 Ruma Hernández APRN [address] [place] [address] Referring Physician Gastroenterology 07/30/23 documented as of this encounter
--- OUTSIDE RECORDS SUMMARY | 2025-05-25 07:21 | XMS_ITS | Encounter Summary ---
Author Organization Healthcare Address [address] [place] [address] Care Team Providers Care Police Commissioner Name Role Phone KaronUrban Primary Care Provider [phone] Ruma Hernández CLAY WASHER Unavailable [phone] Chris Meedl MD Primary Care Provider [phone] Encounter Details Date Type Department Care Team (Late st Contact Info) Description 02/06/2025 Results Follow-Up [facility] [address] [facility] [address] [place] [address] Meaghan Le, RN [facility] LIVER [id number] [address] [place] [id number] Social History Tobacco Use Types Packs/Day Years [...] How often do you attend chur or restorationism services? More than 4 times per year 02/19/2025 Do you belong to any clubs o r organizations such as yarsani groups, unions, fraternal or athletic groups, or [...] Patient Health Questionnaire-2 Score 0 03/14/2025 [facility] - Occupational [...] any time in the past 12 m [facility], were you homeless or living in a longterm (including now)? No 02/19/2025 Utilities Answer Date Recorded In the past 12 months has th e [employer], gas, oil, or water company threatened to [...] Description 06/08/2025 9:00 AM EDT Appointment [facility] [address] [facility] [address] [facility], [address] [place] [address] 06/08/2025 12:20 PM EDT Office Visit [facility] [address] [facility] [address] [facility], [address] [place] [address] Moustapha Katz MD [address] [facility] [address] [place] [address] 06/13/2025 6:45 AM EDT Clinical Support [facility] [address] [facility] [address] [place] [address] 06/13/2025 7:15 AM EDT Appointment [facility] Radiology [address], 1st [place] [address] 06/13/2025 8:00 AM EDT Office Visit [facility] [place] [address] [facility] [address] [place] [address] Portia Maguire MD [address] [facility] [address] [place] [address] 06/13/2025 11:30 AM EDT Appointment Cardiac Imaging [address] [place] [address] 06/13/2025 2:00 PM EDT Appointment [facility] [address] [place] [address] 10/03/2025 12:45 PM EST Office Visit Medical Office Building Urology [address] [facility], [address] [place] [address] Suhail Brock MD [address] [place] [address] documented as of this encounter Visit Diagnoses [...] documented as of this encounter Care Teams Police Commissioner Relationship Specialty Start Date End Date Urban Brantley DO [address] [place] [address] PCP - General 07/30/23 03/13/25 Chris Medel MD [address] [place] [address] PCP - General 03/14/25 Ruma Hernández APRN [address] [place] [address] Referring Physician Gastroenterology 07/30/23 documented as of this encounter
--- OUTSIDE RECORDS SUMMARY | 2025-05-25 07:21 | XMS_ITS | Encounter Summary ---
Author Organization Healthcare Address [address] [place] [address] Care Team Providers Care Train Brake Operator Name Role Phone KaronUrban Yael CAMARA Primary Care Provider [phone] Ruma Hernández VP DIRECTOR OF CREATIVE STRATEGY Unavailable [phone] Chris Medel MD Primary Care Provider [phone] Encounter Details Date Type Department Care Team (Late st Contact Info) Description 03/05/2025 Results Follow-Up [facility] [address] [facility] [address] [place] [address] Meaghan Le, RN [facility] LIVER [id number] [address] [place] [id number] Social History Tobacco Use Types Packs/Day Years [...] How often do you attend chur or congregation services? More than 4 times per year [...] Patient Health Questionnaire-2 Score 0 03/14/2025 [facility] ional [facility] - [...] were you homeless or living in a care home (including now)? No 02/19/2025 Utilities Answer Date Recorded In the past 12 months has th e [employer], gas, oil, or water company threatened to [...] Info) Description 06/08/2025 9:00 AM EDT Appointment [facility] [address] [facility], [address] [place] [address] 06/08/2025 12:20 PM EDT Office Visit [facility] [address], [address] [place] [address] Moustapha Katz MD [address] [place] [address] 06/13/2025 6:45 AM EDT Clinical Support [facility] [address] [facility] [address] [place] [address] 06/13/2025 7:15 AM EDT Appointment [facility] Radiology [address], 1st [place] [address] 06/13/2025 8:00 AM EDT Office Visit [facility] [address] [facility] [address] [place] [address] Portia Maguire MD [address] [facility] [address] [place] [address] 06/13/2025 11:30 AM EDT Appointment Cardiac Imaging [address] [place] [address] 06/13/2025 2:00 PM EDT Appointment [facility] [address] [place] [address] 10/03/2025 12:45 PM EST Office Visit Medical Office Building Urology [address] [facility], [address] [place] [address] Suhail Brock MD [address] [facility] [address] [place] [address] documented as of this encounter Visit Diagnoses [...] documented as of this encounter Care Teams Train Brake Operator Relationship Specialty Start Date End Date Urban Brantley DO [address] [place] [address] PCP - General 07/30/23 03/13/25 Chris Medel MD [address] [place] [address] PCP - General 03/14/25 Ruma Hernández APRN [address] [place] [address] [address] [place] [address] Referring Physician Gastroenterology 07/30/23 documented as of this encounter
[2025-05-25 08:45] LABS: Albumin Level 2.0 g/dl (3.5-5.0); Alkaline Phosphatase 171 U/L (38-126); Anion Gap 7.5 mEq/L (5-15); Blood Urea Nitrogen 12 mg/dl (9-20); Calcium 7.5 mg/dl (8.4-10.2); Carbon Dioxide 29 mmol/L (22.0-30.0); Chloride 107 mmol/L (98-107); Creatinine,Serum 0.80 mg/dl (0.66-1.25); Estimated Glomerular Filt Rate 97 ml/min (>60); GFR (African American) 118 ML/MIN (>60); Glucose 80 mg/dl (74-100); Phosphorous 3.4 mg/dl (2.5-4.5); Potassium 3.5 mmoL/L (3.5-5.1); Sodium 140 mmol/L (136-145)
[2025-05-25 09:02] LABS: 25-OH Vitamin D, Total 59.9 ng/mL (30-100)
[2025-05-30 13:55] LABS: Serial Monitoring PDF SCANNED IMAGE
== END 2025-05-25 23:59 | disposition home or self-care (01) ==
LOC: LAB 07:20
PROVIDERS: PCP Family Medicine; Visit Provider Internal Medicine
DX: K72.90 Hepatic failure, unspecified without coma (principal); M81.8 Other osteoporosis without current pathological fracture
CPT/HCPCS: 36415; 80069; 82306; 84075; 84080

== ENCOUNTER 2025-05-28 10:28 | Outpatient (CLI) | payer BC, SELFPAY ==
--- OUTSIDE RECORDS SUMMARY | 2025-05-28 10:31 | XMS_ITS | Encounter Summary ---
Author Organization Healthcare Address [address] [place] [address] Care Team Providers Care Straight Tooth Gear Generator Operator Name Role Phone KaronUrban Primary Care Provider [phone] Ruma Hernández [employer] Unavailable [phone] Chris Medel MD Primary Care Provider [phone] Encounter Details Date Type Department Care Team (Late Contact Info) Description 05/09/2023 Orders Only External Location [address] [place] [address] Provider, External Social History Tobacco [...] 06/08/2025 9:00 AM EDT Appointment [facility] [place] [facility] [address], [address] [place] [address] 06/08/2025 12:20 PM EDT Office Visit [facility] [place] [facility] [address], [address] [place] [address] Moustapha Katz MD [address] [place] [address] 06/13/2025 6:45 AM EDT Clinical Support [facility] [address] [place] [address] 06/13/2025 7:15 AM EDT Appointment [facility] [address], 1st [place] [address] 06/13/2025 8:00 AM EDT Office Visit [facility] [address] [place] [address] Portia Maguire MD [address] [place] [address] 06/13/2025 11:30 AM EDT Appointment Cardiac Imaging [address] [place] [address] 06/13/2025 2:00 PM EDT Appointment [facility] [address] [place] [address] 10/03/2025 12:45 PM EST Office Visit Medical Office Building Urology [address] [facility], [address] [place] [address] Suhail Brock MD [address] [facility] [address] [place] [address] documented as of this encounter Procedures Procedure [...] on filedocumented in this encounter Care Teams Straight Tooth Gear Generator Operator Relationship Specialty Start Date End Date Urban Brantley DO [address] [place] [address] PCP - General 07/30/23 03/13/25 Chris Medel MD [address] [place] [address] PCP - General 03/14/25 Ruma Hernández APRN [address] [place] [address] Referring Physician Gastroenterology 07/30/23 documented as of this encounter
--- OUTSIDE RECORDS SUMMARY | 2025-05-28 10:31 | XMS_ITS ---
Author Organization [facility] Address [address] 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
--- OUTSIDE RECORDS SUMMARY | 2025-05-28 10:31 | XMS_ITS | Encounter Summary ---
Author Organization Healthcare Address [address] [place] [address] Care Team Providers Care Cooking Instructor Name Role Phone KaronUrban Yael CAMARA Primary Care Provider [phone] Ruma Hernández SEARCH MANAGER Unavailable [phone] Chris Medel MD Primary Care Provider [phone] Encounter Details Date Type Department Care Team (Late st Contact Info) Description 02/06/2025 Results Follow-Up [facility] [address] [facility] [address] [place] [address] Meaghan Le, RN [facility] LIVER [id number] [address] [place] [id number] Social History Tobacco Use Types Packs/Day Years [...] any clubs o r organizations such as voodoo groups, unions, fraternal or athletic groups, or [...] Recorded Patient Health Questionnaire-2 Score 0 03/14/2025 [facility] - Occupational [...] time in the past 12 m [facility], were you homeless or living in a fpc (including now)? No 02/19/2025 Utilities Answer Date Recorded In the past 12 months has th e [employer], gas, oil, or water company threatened to [...] does not drink 02/19/2025 10:06 AM Manohar Gomze Q3: How often do you have six [...] Description 06/08/2025 9:00 AM EDT Appointment [facility] [address] [facility], [address] [place] [address] 06/08/2025 12:20 PM EDT Office Visit Professional [facility] [address] [facility], [address] [place] [address] Moustapha Katz MD [address] [facility] [address] [place] [address] 06/13/2025 6:45 AM EDT Clinical Support [facility] [address] [facility] [address] [place] [address] 06/13/2025 7:15 AM EDT Appointment [facility] Radiology [address], 1st [place] [address] 06/13/2025 8:00 AM EDT Office Visit [facility] [place] [address] [facility] [address] [place] [address] Portia Maguire MD [address] [facility] [address] [place] [address] 06/13/2025 11:30 AM EDT Appointment Cardiac Imaging [address] [place] [address] 06/13/2025 2:00 PM EDT Appointment [facility] [address] [place] [address] 10/03/2025 12:45 PM EST Office Visit Medical Office Building Urology [address] [facility], [address] [place] [address] Suhail Brock MD [address] [place] [address] documented as of this encounter Visit Diagnoses [...] documented as of this encounter Care Teams Cooking Instructor Relationship Specialty Start Date End Date Urban Brantley DO [address] [place] [address] PCP - General 07/30/23 03/13/25 Chris Medel MD [address] [place] [address] PCP - General 03/14/25 Ruma Hernández APRN [address] [place] [address] Referring Physician Gastroenterology 07/30/23 documented as of this encounter
--- OUTSIDE RECORDS SUMMARY | 2025-05-28 10:31 | XMS_ITS | Encounter Summary ---
Author Organization Healthcare Address [address] [place] [address] Care Team Providers Care Band Leader Name Role Phone KaronUrban Yael CAMARA Primary Care Provider [phone] Ruma Hernández NEIGHBORHOOD CONSERVATION OFFICER Unavailable [phone] Chris Medel MD Primary Care Provider [phone] Encounter Details Date Type Department Care Team (Late st Contact Info) Description 03/05/2025 Results Follow-Up [facility] Transplant [facility] [address] [facility] [address] [place] [address] Meaghan Le, RN [facility] LIVER [id number] [address] [id number] Social History Tobacco Use Types Packs/Day Years [...] How often do you attend chur or jain services? More than 4 times per year 02/19/2025 Do you belong to any clubs o r organizations such as tenriism groups, unions, fraternal or athletic groups, or [...] Recorded Patient Health Questionnaire-2 Score 0 03/14/2025 [facility] of Occupat ional Health - [...] time in the past 12 m [facility], were you homeless or living in a chcf (including now)? No 02/19/2025 Utilities Answer Date Recorded In the past 12 months has th e [employer], gas, oil, or water company threatened to [...] Info) Description 06/08/2025 9:00 AM EDT Appointment [facility] [place] [address], [address] [place] [address] 06/08/2025 12:20 PM EDT Office Visit [facility] [place] [address], [address] [place] [address] Moustapha Katz MD [address] [place] [address] 06/13/2025 6:45 AM EDT Clinical Support [facility] [address] [facility] [address] [place] [address] 06/13/2025 7:15 AM EDT Appointment [facility] Radiology [address], 1st [place] [address] 06/13/2025 8:00 AM EDT Office Visit [facility] [address] [facility] [address] [place] [address] Portia Maguire MD [address] [facility] [address] [place] [address] 06/13/2025 11:30 AM EDT Appointment Cardiac Imaging [address] [place] [address] 06/13/2025 2:00 PM EDT Appointment [facility] [address] [place] [address] 10/03/2025 12:45 PM EST Office Visit Medical Office Building Urology [address], [address] [place] [address] Suhail Brock MD [address] [place] [address] documented as of this encounter Visit Diagnoses [...] documented as of this encounter Care Teams Band Leader Relationship Specialty Start Date End Date Urban Brantley DO [address] [place] [address] PCP - General 07/30/23 03/13/25 Chris Medel MD [address] [place] [address] PCP - General 03/14/25 Ruma Hernández APRN [address] [place] [address] [address] [place] [address] Referring Physician Gastroenterology 07/30/23 documented as of this encounter
--- OUTSIDE RECORDS SUMMARY | 2025-05-28 10:31 | XMS_ITS | Encounter Summary ---
Author Organization Healthcare Address [address] [place] [address] Care Team Providers Care Agricultural Science Professor Name Role Phone Ruma Hernández CRACKER DOUGH MIXER Unavailable [phone] Chris Medel MD Primary Care Provider [phone] Encounter Details Date Type Department Care Team (Late st Contact Info) Description 03/30/2025 Results Follow-Up [facility] Transplant Center [address] [place] [address] Meaghan Le, RN HOSPITAL LIVER [id number] [address] [phone] Social History Tobacco Use Types Packs/Day Years [...] week 02/19/2025 How often do you attend [facility] or lutheran services? More than 4 times per year 02/19/2025 Do you belong to any clubs o r organizations such as cheondoism groups, unions, fraternal or athletic groups, or [...] Patient Health Questionnaire-2 Score 0 03/14/2025 [facility] of Occupat ional Health - Occupational [...] any time in the past 12 m [facility], were you homeless [...] Upcoming Encounters Date Type Department Care Team ([facility] st Contact Info) Description 06/08/2025 9:00 AM EDT Appointment [facility] [place] [facility] [address], [address] [place] [address] 06/08/2025 12:20 PM EDT Office Visit [facility] Mineral Met[facility] [address] [facility], [address] [place] [address] Moustapha Katz MD [address] [facility] [address] [place] [address] 06/13/2025 6:45 AM EDT Clinical Support [facility] Transplant Center [address] [facility] [address] [place] [address] 06/13/2025 7:15 AM EDT Appointment [facility] Radiology [address], 1st [place] [address] 06/13/2025 8:00 AM EDT Office Visit [facility] Transplant [place] [address] [place] [address] Portia Maguire MD [address] [place] [address] 06/13/2025 11:30 AM EDT Appointment Cardiac Imaging [address] [place] [address] 06/13/2025 2:00 PM EDT Appointment [facility] [address] [place] [address] 10/03/2025 12:45 PM EST Office Visit Medical Office Building Urology [address] [facility] [address], [address] [place] [address] Suhail Brock MD [address] [facility] [address] [place] [address] documented as of this encounter [...] documented as of this encounter Care Teams Agricultural Science Professor Relationship Specialty Start Date End Date Chris Medel MD [address] [place] [address] PCP - General 03/14/25 Ruma Hernández APRN [address] [address] Referring Physician Gastroenterology 07/30/23 documented as of this encounter
--- OUTSIDE RECORDS SUMMARY | 2025-05-28 10:31 | XMS_ITS | Encounter Summary ---
Author Organization Healthcare Address [address] [place] [address] Care Team Providers Care Occasional Babysitter Name Role Phone Ruma Hernández Freddie CHIEF PSYCHOLOGIST Unavailable [phone] Chris Medel MD Primary Care Provider [phone] Encounter Details Date Type Department Care Team (Late st Contact Info) Description 05/01/2025 Results Follow-Up [facility] Transplant Center [address] [place] [address] Meaghan Le, RN HOSPITAL LIVER [id number] [address] [phone] Social History Tobacco Use Types Packs/Day Years [...] week 02/19/2025 How often do you attend [facility] or orthodox services? More than 4 times per year 02/19/2025 Do you belong to any clubs o r organizations such as samaritan groups, unions, fraternal or athletic groups, or [...] Recorded Patient Health Questionnaire-2 Score 0 03/14/2025 [facility] of Occupat ional Health - Occupational Stress [...] time in the past 12 m [facility], were you homeless or living in [...] Info) Description 06/08/2025 9:00 AM EDT Appointment [facility] Bone [facility] Mineral Metabolism [address] [facility] [address] [facility], [address] [place] [address] 06/08/2025 12:20 PM EDT Office Visit [facility] Mineral Met[facility] [address], [address] [place] [address] Moustapha Katz MD [address] [facility] [address] [place] [address] 06/13/2025 6:45 AM EDT Clinical Support [facility] Transplant Center [address] [facility] [address] [place] [address] 06/13/2025 7:15 AM EDT Appointment [facility] Radiology [address], 1st [place] [address] 06/13/2025 8:00 AM EDT Office Visit [facility] Transplant Center [address] [facility] [address] [place] [address] Portia Maguire MD [address] [facility] [address] [place] [address] 06/13/2025 11:30 AM EDT Appointment Cardiac Imaging [address] [place] [address] 06/13/2025 2:00 PM EDT Appointment [facility] [address] [place] [address] 10/03/2025 12:45 PM EST Office Visit Medical Office Building Urology [address], [address] [place] [address] Suhail Brock MD [address] [place] [address] documented as of this encounter Visit Diagnoses [...] documented as of this encounter Care Teams Occasional Babysitter Relationship Specialty Start Date End Date Chris Medel MD [address] [place] [address] PCP - General 03/14/25 Ruma Hernández APRN [address] [address] Referring Physician Gastroenterology 07/30/23 documented as of this encounter
--- OUTSIDE RECORDS SUMMARY | 2025-05-28 10:31 | XMS_ITS | Encounter Summary ---
Author Organization Healthcare Address [address] [place] [address] Care Team Providers Care Mechanical Artist Name Role Phone KaronUrban Primary Care Provider [phone] Ruma Hernández SPREADER OPERATOR Unavailable [phone] Chris Medel MD Primary Care Provider [phone] Encounter Details Date Type Department Care Team (Late Contact Info) Description 03/22/2023 Orders Only External Location [address] [place] [address] Provider, External Social History Tobacco [...] 06/08/2025 9:00 AM EDT Appointment [facility] [address], [address] [place] [address] 06/08/2025 12:20 PM EDT Office Visit [facility] [address], [address] [place] [address] Moustapha Katz MD [address] [place] [address] 06/13/2025 6:45 AM EDT Clinical Support [facility] Trans[facility] [address] [place] [address] 06/13/2025 7:15 AM EDT Appointment [facility] Radiology [address], 1st [place] [address] 06/13/2025 8:00 AM EDT Office Visit [facility] Trans[facility] [address] [place] [address] Portia Maguire MD [address] [place] [address] 06/13/2025 11:30 AM EDT Appointment Cardiac Imaging [address] [place] [address] 06/13/2025 2:00 PM EDT Appointment [facility] [address] [place] [address] 10/03/2025 12:45 PM EST Office Visit Medical Office Building Urology [address] [facility], [address] [place] [address] Suhail Brock MD [address] [place] [address] documented as of this encounter Procedures Procedure [...] on filedocumented in this encounter Care Teams Mechanical Artist Relationship Specialty Start Date End Date Urban Brantley DO [address] [place] [address] PCP - General 07/30/23 03/13/25 Chris Medel MD [address] [place] [address] PCP - General 03/14/25 Ruma Hernández APRN [address] [place] [address] Referring Physician Gastroenterology 07/30/23 documented as of this encounter
--- OUTSIDE RECORDS SUMMARY | 2025-05-28 10:31 | XMS_ITS | Encounter Summary ---
Author Organization Healthcare Address [address] [place] [address] Care Team Providers Care Farmworker Cranberry Name Role Phone KaronUrban Primary Care Provider [phone] Ruma Hernández SUPERVISING EDITOR TRAILER Unavailable [phone] Chris Medel MD Primary Care Provider [phone] Encounter Details Date Type Department Care Team (Late Contact Info) Description 03/22/2023 Orders Only External Location [address] [place] [address] Provider, External Social History Tobacco [...] 06/08/2025 9:00 AM EDT Appointment [facility] [address], [address] [place] [address] 06/08/2025 12:20 PM EDT Office Visit [facility] [address], [address] [place] [address] Moustapha Katz MD [address] [place] [address] 06/13/2025 6:45 AM EDT Clinical Support [facility] Transplant Center [address] [place] [address] 06/13/2025 7:15 AM EDT Appointment [facility] Radiology [address], 1st [place] [address] 06/13/2025 8:00 AM EDT Office Visit [facility] Transplant Center [address] [place] [address] Portia Maguire MD [address] [place] [address] 06/13/2025 11:30 AM EDT Appointment Cardiac Imaging [address] [place] [address] 06/13/2025 2:00 PM EDT Appointment [facility] [address] [place] [address] 10/03/2025 12:45 PM EST Office Visit Medical Office Building Urology [address] [facility], [address] [place] [address] Suhail Brock MD [address] [place] [address] documented as of this encounter Procedures Procedure [...] on filedocumented in this encounter Care Teams Farmworker Cranberry Relationship Specialty Start Date End Date Urban Brantley DO [address] [place] [address] PCP - General 07/30/23 03/13/25 Chris Medel MD [address] [place] [address] PCP - General 03/14/25 Ruma Hernández APRN [address] [place] [address] Referring Physician Gastroenterology 07/30/23 documented as of this encounter
--- OUTSIDE RECORDS SUMMARY | 2025-05-28 10:31 | XMS_ITS | Encounter Summary ---
Author Organization Healthcare Address [address] [place] [address] Care Team Providers Care Stone Mill Operator Name Role Phone Ruma Hernández STRATEGIC DEVELOPMENT MANAGER Unavailable [phone] Chris Medel MD Primary Care Provider [phone] Encounter Details Date Type Department Care Team (Late st Contact Info) Description 04/03/2025 Results Follow-Up [facility] Transplant Center [address] [place] [address] Meaghan Le, RN HOSPITAL LIVER [id number] [address] [phone] Social History Tobacco Use Types Packs/Day Years [...] you attend [facility] or scientologist services? More than 4 times per year 02/19/2025 Do you belong to any clubs o r organizations such as sabianism groups, unions, fraternal or athletic groups, or [...] any time in the past 12 m [facility], were you homeless or [...] Info) Description 06/08/2025 9:00 AM EDT Appointment [facility] Bone & Mineral Metabolism [address], [address] [place] [address] 06/08/2025 12:20 PM EDT Office Visit [facility] Bone [facility] Mineral Metabolism [address] [facility], [address] [place] [address] Moustapha Katz MD [address] [facility] [address] [place] [address] 06/13/2025 6:45 AM EDT Clinical Support [facility] Transplant Center [address] [facility] [address] [place] [address] 06/13/2025 7:15 AM EDT Appointment [facility] Radiology [address] 1st [place] [address] 06/13/2025 8:00 AM EDT Office Visit [facility] Transplant Center [address] [facility] [address] [place] [address] Portia Maguire MD [address] [facility] [address] [place] [address] 06/13/2025 11:30 AM EDT Appointment Cardiac Imaging [address] [place] [address] 06/13/2025 2:00 PM EDT Appointment [facility] [address] [place] [address] 10/03/2025 12:45 PM EST Office Visit Medical Office Building Urology [address] [facility], [address] [place] [address] Suhail Brock MD [address] [place] [address] documented as of this encounter Visit Diagnoses [...] as of this encounter Care Teams Stone Mill Operator Relationship Specialty Start Date End Date Chris Medel MD [address] [place] [address] PCP - General 03/14/25 Ruma Hernández APRN [address] [address] Referring Physician Gastroenterology 07/30/23 documented as of this encounter
--- NOTE | 2025-05-28 10:32 | XR_ITS ---
FINAL REPORT CLINICAL HISTORY: pneumonia f/u COMPARISON: 05/21/2025 FINDINGS: CHEST 2 VIEWS: The left base infiltrate noted on the prior chest x-ray of 05/21/2025 has resolved. No new infiltrates are noted. There is no evidence of effusion or other pleural disease. The mediastinum has a normal appearance. The cardiac silhouette is unremarkable. IMPRESSION: Resolution of the left base infiltrate seen on the prior chest x-ray of 05/21/2025. Reviewed, Interpreted and Dictated by Shelia Euceda MD Transcribed by Marlene Bartholomew Authenticated and [facility]
--- OUTSIDE RECORDS SUMMARY | 2025-05-28 10:32 | XMS_ITS | Encounter Summary ---
Author Organization Healthcare Address [address] [place] [address] Care Team Providers Care Security Delivery Specialist Name Role Phone Ruma Hernández CARPET SEWER Unavailable [phone] Chris Medel MD Primary Care Provider [phone] Encounter Details Date Type Department Care Team (Late st Contact Info) Description 05/22/2025 Telephone [facility] Transplant Center [address] [facility] [address] [place] [address] Meaghan Le, RN HOSPITAL LIVER [id number] [address] [phone] Social History Tobacco Use Types Packs/Day Years [...] often do you attend [facility] or nondenominational services? More than 4 times per year 02/19/2025 Do you belong to any clubs o r organizations such as religion groups, unions, fraternal or athletic groups, or [...] Recorded Patient Health Questionnaire-2 Score 0 03/14/2025 [facility] of Occupat ional Health - Occupational [...] any time in the past 12 m [facility], were you homeless or living in [...] Metabolism [address], [address] [place] [address] 06/08/2025 12:20 PM EDT Office Visit [facility] Bone & Mineral Metabolism [address] [facility], [address] [place] [address] Moustapha Katz MD [address] [facility] [address] [place] [address] 06/13/2025 6:45 AM EDT Clinical Support [facility] Transplant [place] [address] [facility] [address] [place] [address] 06/13/2025 7:15 AM EDT Appointment [facility] Radiology [address], 1[address] [place] [address] 06/13/2025 8:00 AM EDT Office Visit [facility] Transplant [place] [address] [facility] [address] [place] [address] Portia Maguire MD [address] [facility] [address] [place] [address] 06/13/2025 11:30 AM EDT Appointment Cardiac Imaging [address] [place] [address] 06/13/2025 2:00 PM EDT Appointment [facility] [address] [place] [address] 10/03/2025 12:45 PM EST Office Visit Medical Office Building Urology [address] [facility], [address] [place] [address] Suhail Brock MD [address] [facility] [address] [place] [address] Scheduled Orders Name Type Priority [...] documented as of this encounter Care Teams Security Delivery Specialist Relationship Specialty Start Date End Date Chris Medel MD [address] [place] [address] PCP - General 03/14/25 Ruma Hernández APRN [address] [place] [address] Referring Physician Gastroenterology 07/30/23 documented as of this encounter
--- OUTSIDE RECORDS SUMMARY | 2025-05-28 10:32 | XMS_ITS | Clinical Summary ---
Author Organization [facility] Address [address] [place] [address] Care Team Providers Care Associate Financial Advisor Name Role Phone Ruma Hernández [employer]OWER Unavailable [phone] Chris Medel MD Primary Care Provider [phone] Allergies Active Allergy Reactions Criticality Noted Date Comments Lisinopril Cough Low 09/15/2021 Medications carvedilol (Coreg) 3.125 MG tabletIndication s:Cirrhosis of liver with ascites, unspecified hepatic cirrhosis type (CMS/HCC) Take 1 tablet (3.125 mg) by mouth 2 (two) times a day with meals. 60 tablet 11 4 09/13/20 25 Active Xifaxan 550 MG tablet 5 Active ergocalciferol (Vitamin D-2) 1.25 MG (38438 UT) capsule Take 1 capsule by mouth [...] Type Department Care Team Description 05/22/2025 Telephone [facility] [address] [place] [phone] Meaghan Le RN 05/01/2025 Results Follow-Up [facility] [address] [place] [phone] Meaghan Le RN 04/03/2025 Results Follow-Up [facility] [address] [place] [phone] Meaghan Le RN 03/30/2025 Results Follow-Up [facility] [address] [place] [phone] Meaghan Le RN 03/14/2025 9:16 AM EDT - 03/14/2025 11:59 PM EDT Hospital Encounter [facility] [address] [place] [address] Pre-liver transplant, listed Discharge Disposition: Home or Self Care 03/14/2025 8:00 AM EDT Office Visit [facility] [address] [facility] [address] [place] [phone] Zarina Moore, PA Alcoholic cirrhosis of liver with ascites (CMS/HCC) (Primary Dx); Left inguinal hernia; Bilateral leg edema; Cirrhosis of liver with ascites, unspecified hepatic cirrhosis type (CMS/HCC); Other ascites 03/14/2025 6:59 AM EDT - 03/14/2025 9:15 AM EDT Hospital Encounter [facility] [address], 1[address] [place] [address] Nephrolithiasis Discharge Disposition: Home or Self Care 03/14/2025 Travel 03/06/2025 4:00 PM EDT Office Visit [facility] [address] , [address] [place] [address] Moustapha Katz MD Other osteoporosis without current pathological fracture (Primary Dx); Alcoholic cirrhosis of liver with ascites (CMS/HCC); Iron overload; Obesity (BMI 35.0-39.9 without comorbidity); Vitamin D deficiency; Other ascites 03/06/2025 Telephone [facility] [address] , [address] [place] [address] Dulce Miller B 03/05/2025 Results Follow-Up [facility] [address] [facility] [address] [place] [phone] Meaghan Le RN 03/05/2025 Travel from Last [...] week 02/19/2025 How often do you attend [facility] or church services? More than 4 times [...] Recorded Patient Health Questionnaire-2 Score 0 03/14/2025 [facility] - Occupational Stress Questionnaire Answer [...] the past 12 months has th e [employer], gas, oil, or water [employer] threatened to shut off services in your [...] Info) Description 06/08/2025 9:00 AM EDT Appointment [facility] [address] [facility], [address] [place] [phone] 06/08/2025 12:20 PM EDT Office Visit [facility] [address] [facility] [address], [address] [place] [phone] Moustapha Katz MD [address] [place] [phone] 06/13/2025 6:45 AM EDT Clinical Support [facility] [address] [facility] [address] [place] [address] 06/13/2025 7:15 AM EDT Appointment [facility] [address] 1[address] [place] [address] 06/13/2025 8:00 AM EDT Office Visit [facility] [address] [facility] [address] [place] [address] Portia Maguire MD [address] [facility] [address] [place] [address] 06/13/2025 11:30 AM EDT Appointment Cardiac Imaging [address] [place] [address] 06/13/2025 2:00 PM EDT Appointment [facility] [address] [place] [address] 10/03/2025 12:45 PM EST Office Visit Medical Office Building Urology [address] [facility] [address] [facility], [address] [place] [address] Suhail Brock MD [address] [place] [phone] Health Maintenance Due Date Last Done Comments [...] - Risk 60-74 years 1-dose series) 2021 [id number] Vaccine ( - season) 2024 UKY-Bone Density [...] Venous blood specimen / Unknown 04/30/2025 Result [facility] MD LAB BLOOD ORDERABLES Nadia l Result [...] Venous blood specimen / Unknown 04/30/2025 Result [facility] MD LAB BLOOD ORDERABLES Nadia l Result * Hemoglobin, Blood (03/26/2025) Pathologist [facility] External Hemoglobin (Hgb) 11.70 Blood Venous blood specimen / Unknown 03/26/2025 Result [facility] MD LAB BLOOD ORDERABLES Nadia l Result * Hematocrit, Blood (03/26/2025) Pathologist [facility] External Hematocrit (Hct) 34.1 Blood Venous blood [...] are consistent with and integrated into the [employer] Liver Diseases [...] are consistent with and integrated into the [place] Associationfor the Study of Liver Diseases (AASLD) [...] Per this written report. Drafted by Celio Wern MD on 03/14/2025 8:33 AM Final report [...] Per this written report. Drafted by Celio Wrne MD on 03/14/2025 8:33 AM Final report signed by Celio Wren MD on 03/14/2025 8:40 AM Suhail Brock MD IMG XR PROCEDURES Final Result * Pain Management, Quantitative Urine Drug Testing (03/14/2025 6:43 AM EDT) Alpha [place] Alprazolam <20 <20 ng/mL 03/15 5:41 AM EDT [facility] Alpha OH Midazolam <20 <20 ng/mL 2024 5:41 AM EDT [facility] Alpha [place] Triazolam <20 <20 ng/mL 2024 5:41 AM EDT [facility] Alprazolam <10 <10 ng/mL 03/15/2025 5:41 AM EDT [facility] Aminoclonazepam <20 <20 ng/mL 5:41 AM EDT [facility] Amphetamine <50 <50 ng/mL 03/15/2025 5:41 AM EDT [facility] Benzoylecgonine <50 <50 ng/mL 5:41 AM EDT [facility] Buprenorphine <10 <10 ng/mL 03/15/2025 5:41 AM EDT [facility] Buprenorphine Glucuronide <50 <50 ng/mL 03/15/2025 5:41 AM EDT [facility] Butalbital <50 <50 ng/mL 03/15/2025 5:41 AM EDT [facility] 9 Carboxy THC <10 <10 ng/mL 03/15/2025 5:41 AM EDT [facility] 9 Carboxy THC Glucuronide <25 <25 ng/mL 03/15/2025 5:41 AM EDT [facility] Clonazepam <10 <10 ng/mL 03/15/2025 5:41 AM EDT [facility] Codeine <50 <50 ng/mL 03/15/2025 5:41 AM EDT [facility] Codeine Glucuronide <50 <50 ng/mL 03/15 5:41 AM EDT [facility] Cyclobenzaprine <50 <50 ng/mL 5:41 AM EDT [facility] Desmethyl Tramadol <50 <50 ng/mL 2024 5:41 AM EDT [facility] Diazepam <10 <10 ng/mL 03/15/2025 5:41 AM EDT [facility] EDDP - Methadone Metabolite <50 <50 ng/mL 03/15/2025 5:41 AM EDT [facility] Fentanyl <1 <1 ng/mL 03/15/2025 5:41 AM EDT [facility] Hydrocodone <50 <50 ng/mL 03/15/2025 5:41 AM EDT [facility] Hydromorphone <50 <50 ng/mL 03/15/2025 5:41 AM EDT [facility] Hydromorphone Glucuronide <50 <50 ng/mL 03/15/2025 5:41 AM EDT [facility] Lorazepam <20 <20 ng/mL 03/15/2025 5:41 AM EDT [facility] Lorazepam Glucuronide <50 <50 ng/mL 03/15/2025 5:41 AM EDT [facility] MDA <50 <50 ng/mL 03/15/2025 5:41 AM EDT [facility] MDMA <50 <50 ng/mL 03/15/2025 5:41 AM EDT [facility] Meperidine <50 <50 ng/mL 03/15/2025 5:41 AM EDT [facility] Methadone <50 <50 ng/mL 03/15/2025 5:41 AM EDT [facility] Methamphetamine <50 <50 ng/mL 5:41 AM EDT [facility] Methylphenidate <50 <50 ng/mL 5:41 AM EDT [facility] 6 Monoacetyl morphine <10 <10 ng/mL 03/15/2025 5:41 AM EDT [facility] Morphine <50 <50 ng/mL 03/15/2025 5:41 AM EDT [facility] Morphine Glucuronide <50 <50 ng/mL 11/2024 5:41 AM EDT [facility] Naloxone <50 <50 ng/mL 03/15/2025 5:41 AM EDT [facility] Naloxone Glucuronide <50 <50 ng/mL 11/2024 5:41 AM EDT [facility] Norbuprenorphine <10 <10 ng/mL 03/15/20 5:41 AM EDT [facility] Norbuprenorphine Glucuronide <50 <50 ng/mL 03/15/2025 5:41 AM EDT [facility] Nordiazepam <20 <20 ng/mL 03/15/2025 5:41 AM EDT [facility] Norfentanyl <2 <2 ng/mL 03/15/2025 5:41 AM EDT [facility] Normeperidine <50 <50 ng/mL 03/15/2025 5:41 AM EDT [facility] PCP Quant, Ur <50 <50 ng/mL 03/15/2025 5:41 AM EDT [facility] Phenobarbital <50 <50 ng/mL 03/15/2025 5:41 AM EDT [facility] Oxazepam <20 <20 ng/mL 03/15/2025 5:41 AM EDT [facility] Oxazepam Glucuronide <50 <50 ng/mL 11/2024 5:41 AM EDT [facility] Oxycodone <50 <50 ng/mL 03/15/2025 5:41 AM EDT [facility] Oxymorphone <50 <50 ng/mL 03/15/2025 5:41 AM EDT [facility] Oxymorphone Glucuronide <50 <50 ng/mL 03/15/2025 5:41 AM EDT [facility] Secobarbital <50 <50 ng/mL 03/15/2025 5:41 AM EDT [facility] Tramadol <50 <50 ng/mL 03/15/2025 5:41 AM EDT [facility] Temazepam <20 <20 ng/mL 03/15/2025 5:41 AM EDT [facility] Temazepam Glucuronide <50 <50 ng/mL 03/15/2025 5:41 AM EDT [facility] Urine Urine specimen obtained by clean catch procedure / Unknown Non-blood Collection / Unknown 03/14/2025 6:43 AM EDT 03/14/2025 7:51 AM EDT Narrative [facility] - 03/15/2025 5:41 AM EDT [...] developed and its performance characteristics determined by [facility] in manner consistent with CLIA requirements. This test has not been cleared or approved by the FDA. us Portia Maguire MD LAB URINE ORDERABLES Nadia l Result Performing Organization Address [facility] Co de Phone Number [facility] [address] [place] [address] * Alpha Fetoprotein, Serum (03/14/2025 6:43 AM EDT) Alpha Fetoprotein, Serum <2.3 <10.0 ng/mL 03/14/2025 9:07 AM EDT [facility] Blood Venous blood specimen / Unknown Venipuncture / Unknown 03/14/2025 6:43 AM EDT 03/14/2025 6:59 AM EDT Narrative [facility] - 03/14/2025 9:07 AM EDT Performed by Stacey electrochemiluminescent immunoassay which is traceable to the [address] [place] [address] WHO Reference standard 72/255. Results obtained with different test methods or kits cannot be used interchangeably. Portia Maguire MD LAB BLOOD ORDERABLES Nadia l Result Performing Organization Address [facility] de Phone Number [facility] [address] [place] [address] * Nicotine Cotinine Metabolite (03/14/2025 6:43 AM EDT) NICOTINE <5 <5 ng/mL 03/15/2025 8:4 3 AM EDT [facility] Cotinine <5 <5 ng/mL 03/15/2025 8:4 3 AM EDT [facility] Blood Venous blood specimen / Unknown Venipuncture / Unknown 03/14/2025 6:43 AM EDT 03/14/2025 6:59 AM EDT Narrative [facility] - 03/15/2025 8:43 AM EDT Testing performed by LC-MS/MS at the [facility]. This test was developed and its performance characteristics determined by [facility]. This assay has not been cleared by the FDA. The laboratory is regulated under CLIA as qualified to perform high-complexity testing. This test is used for clinical purposes. Portia Maguire MD LAB BLOOD ORDERABLES Nadia l Result Performing Organization Address [facility] Co de Phone Number [facility] [address] [place] [address] * Alcohol Urine (03/14/2025 6:43 AM EDT) Alcohol Urine Negative Negative 03/14/2025 2:26 PM EDT [facility] Urine Urine specimen obtained by clean catch procedure / Unknown Non-blood Collection / Unknown 03/14/2025 6:43 AM EDT 03/14/2025 7:51 AM EDT Narrative [facility] - 03/14/2025 2:26 PM EDT The correlation between urine and serum ethanol concentration is highly variable. Test performed by Gas Chromatography at the [facility]. This test was developed and its performance characteristics determined by [facility]. It has not been cleared or approved by the FDA.The laboratory is regulated under CLIA as qualified to perform high-complexity testing. This test is used for clinical purposes only. The correlation between urine and serum ethanol concentration is highly variable. Test performed by Gas Chromatography at the [facility]. This test was developed and its performance characteristics determined by [facility]. It has not been cleared or approved by the FDA.The laboratory is regulated under CLIA as qualified to perform high-complexity testing. This test is used for clinical purposes only. Portia Maguire MD LAB URINE ORDERABLES Nadia l Result Performing Organization Address [facility] Co de Phone Number [facility] [address] [place] [address] * Comprehensive Urine Drug Screening, Qualitative Assay, >= 27 Drug Classes (03/14/2025 6:43 AM EDT) Acetaminophen Negative Negative 03/26/2025 9:38 AM EDT [facility] Alprazolam Negative Negative 03/26/2025 9:38 AM EDT [facility] Amantadine Negative Negative 03/26/2025 9:38 AM EDT [facility] Amitriptyline Negative Negative 03/26/2025 9:38 AM EDT [facility] Amphetamine Negative Negative 03/26/2025 9:38 AM EDT [facility] Atenolol Negative Negative 03/26/2025 9:38 AM EDT [facility] Benzoylecgonine Negative Negative 9:38 AM EDT [facility] Bisoprolol Negative Negative 03/26/2025 9:38 AM EDT [facility] Bupropion Negative Negative 03/26/2025 9:38 AM EDT [facility] Butalbital Negative Negative 03/26/2025 9:38 AM EDT [facility] Carbamazepine Negative Negative 03/26/2025 9:38 AM EDT [facility] Carisoprodol Negative Negative 03/26/2025 9:38 AM EDT [facility] Chlorpheniramine Negative Negative 03/26/20 9:38 AM EDT [facility] Citalopram Negative Negative 03/26/2025 9:38 AM EDT [facility] Clindamycin Negative Negative 03/26/2025 9:38 AM EDT [facility] Clonidine Negative Negative 03/26/2025 9:38 AM EDT [facility] Clopidogrel / Ticlopidine Negative Negative 03/26/2025 9:38 AM EDT [facility] Cocaethylene Negative Negative 03/26/2025 9:38 AM EDT [facility] Cocaine Negative Negative 03/26/2025 9:38 AM EDT [facility] Codeine Negative Negative 03/26/2025 9:38 AM EDT [facility] Cyclobenzaprine Negative Negative 9:38 AM EDT [facility] Desvenlafaxine Negative Negative 03/26/2025 9:38 AM EDT [facility] Dextromethorphan Negative Negative 03/26/20 9:38 AM EDT [facility] Diazepam Negative Negative 03/26/2025 9:38 AM EDT [facility] Diltiazem Negative Negative 03/26/2025 9:38 AM EDT [facility] Diphenhydramine Negative Negative 9:38 AM EDT [facility] Doxepine Negative Negative 03/26/2025 9:38 AM EDT [facility] Doxylamine Negative Negative 03/26/2025 9:38 AM EDT [facility] EDDP-Methadone metabolite Negative Negative 03/26/2025 9:38 AM EDT [facility] Fentanyl Negative Negative 03/26/2025 9:38 AM EDT [facility] Fluconazole Negative Negative 03/26/2025 9:38 AM EDT [facility] Fluoxetine Negative Negative 03/26/2025 9:38 AM EDT [facility] Guaifenesin Negative Negative 03/26/2025 9:38 AM EDT [facility] Haloperidol Negative Negative 03/26/2025 9:38 AM EDT [facility] Heroin/6-MARY Negative Negative 03/26/2025 9:38 AM EDT [facility] Hydrocodone Negative Negative 03/26/2025 9:38 AM EDT [facility] Hydroxyzine / Cetirizine metabolite Negative Negative 03/26/2025 9:38 AM EDT [facility] Ibuprofen Negative Negative 03/26/2025 9:38 AM EDT [facility] Imipramine Negative Negative 03/26/2025 9:38 AM EDT [facility] Ketamine Negative Negative 03/26/2025 9:38 AM EDT [facility] Labetolol Negative Negative 03/26/2025 9:38 AM EDT [facility] Lamotrigine Negative Negative 03/26/2025 9:38 AM EDT [facility] Levetiracetam Negative Negative 03/26/2025 9:38 AM EDT [facility] Lidocaine Negative Negative 03/26/2025 9:38 AM EDT [facility] MDA Negative Negative 03/26/2025 9:38 AM EDT [facility] MDMA Negative Negative 03/26/2025 9:38 AM EDT [facility] Memantine Negative Negative 03/26/2025 9:38 AM EDT [facility] Meperidine Negative Negative 03/26/2025 9:38 AM EDT [facility] Meprobamate Negative Negative 03/26/2025 9:38 AM EDT [facility] Metaxalone Negative Negative 03/26/2025 9:38 AM EDT [facility] Methamphetamine Negative Negative 9:38 AM EDT [facility] Methocarbamol Negative Negative 03/26/2025 9:38 AM EDT [facility] Methylecgonine Negative Negative 03/26/2025 9:38 AM EDT [facility] Metoclopramide Negative Negative 03/26/2025 9:38 AM EDT [facility] Metoprolol Negative Negative 03/26/2025 9:38 AM EDT [facility] Metronidazole Negative Negative 03/26/2025 9:38 AM EDT [facility] Midazolam Negative Negative 03/26/2025 9:38 AM EDT [facility] Midazolam Metabolite Negative Negative 03/15 9:38 AM EDT [facility] Mirtazapine Negative Negative 03/26/2025 9:38 AM EDT [facility] Misc Test Result Negative Negative 03/26/20 9:38 AM EDT [facility] Naproxen Negative Negative 03/26/2025 9:38 AM EDT [facility] Nefazodone Negative Negative 03/26/2025 9:38 AM EDT [facility] Norfentanyl Negative Negative 03/26/2025 9:38 AM EDT [facility] Nortriptyline Negative Negative 03/26/2025 9:38 AM EDT [facility] Ordanstron Negative Negative 03/26/2025 9:38 AM EDT [facility] Oxcarbazepine Negative Negative 03/26/2025 9:38 AM EDT [facility] Oxycodone Negative Negative 03/26/2025 9:38 AM EDT [facility] Paroxethine Negative Negative 03/26/2025 9:38 AM EDT [facility] Phenobarbital Negative Negative 03/26/2025 9:38 AM EDT [facility] Phentermine Negative Negative 03/26/2025 9:38 AM EDT [facility] Phenytoin Negative Negative 03/26/2025 9:38 AM EDT [facility] Primidone Negative Negative 03/26/2025 9:38 AM EDT [facility] Promethazine Negative Negative 03/26/2025 9:38 AM EDT [facility] Propofol Negative Negative 03/26/2025 9:38 AM EDT [facility] Propranolol Negative Negative 03/26/2025 9:38 AM EDT [facility] Quetiapine Negative Negative 03/26/2025 9:38 AM EDT [facility] Quinine Negative Negative 03/26/2025 9:38 AM EDT [facility] Rantidine Negative Negative 03/26/2025 9:38 AM EDT [facility] Sertraline Negative Negative 03/26/2025 9:38 AM EDT [facility] Spironolactone Negative Negative 03/26/2025 9:38 AM EDT [facility] Tizanidine Negative Negative 03/26/2025 9:38 AM EDT [facility] Topiramate Negative Negative 03/26/2025 9:38 AM EDT [facility] Tramadol Negative Negative 03/26/2025 9:38 AM EDT [facility] Trazadone/ Trazadone metabolite Negative Negative 03/26/2025 9:38 AM EDT [facility] Trimethoprim Negative Negative 03/26/2025 9:38 AM EDT [facility] Valproic Acid Negative Negative 03/26/2025 9:38 AM EDT [facility] Venlafaxine Negative Negative 03/26/2025 9:38 AM EDT [facility] Verapamil Negative Negative 03/26/2025 9:38 AM EDT [facility] Zolpidem Negative Negative 03/26/2025 9:38 AM EDT [facility] Xylazine Negative Negative 03/26/2025 9:38 AM EDT [facility] Urine Urine specimen obtained by clean catch procedure / Unknown Non-blood Collection / Unknown 03/14/2025 6:43 AM EDT 03/14/2025 7:51 AM EDT Narrative [facility] - 03/26/2025 9:38 AM EDT Test performed by: [employer] [address] [place] [id number] [place] Portia Maguire MD LAB URINE ORDERABLES Nadia l Result [facility] [address] [place] [address] * Dexa Bone Density (04/11/2024 12:32 PM [...] the non-dominant forearm was performed using a [employer] Horizon A Dual- energy X-ray Absorptiometry (DXA) [...] the non-dominant forearm was performed using a [employer] A Dual- energy X-ray Absorptiometry (DXA) scanner (software [id number]). COMPARISON/CORRELATION: No comparison. No recent correlative imaging. [...] 2 Antibody/Antigen Screen (04/11/2024 6:27 AM EDT) [facility] HIV 1 & 2 Antibody/Antigen Screen Non Reactive Non Reactive 04/11/2024 7:32 AM EDT [facility] Comment:Screening for HIV 1 & 2 antibodies, and P24 antigen is NONREACTIVE. No confirmatory testing is required. Blood Venous blood specimen / Unknown Venipuncture / Unknown 04/11/2024 6:27 AM EDT 04/11/2024 6:51 AM EDT Delilah Joshua MD LAB BLOOD ORDERABLES Final Result [facility] [address] [place] [address] * Hepatitis C Antibody (08/03/2023 7:30 AM EDT) [facility] Hepatitis C Antibody Negative Negative 08/03/2023 8:47 AM EDT [facility] Blood Venous blood specimen / Unknown Venipuncture / Unknown 08/03/2023 7:30 AM EDT 08/03/2023 8:05 AM EDT Bird Kennedy MD LAB BLOOD ORDERABLES Final Resul t Performing Organization Address City/[facility] Co de Phone Number [facility] [address] [place] [address] from Last 3 Months or Most Recently Relevant to Health Maintenance Insurance [facility] HUMANA [address] [place] [address] ANTHEM Care Teams Associate Financial Advisor Relationship Specialty Start Date End Date Chris Medel MD [address] [place] [address] PCP - General 03/14/25 Ruma Hernández APRN 1780 [facility] [address] [place] [address] Referring Physician Gastroenterology 07/30/23
--- OUTSIDE RECORDS SUMMARY | 2025-05-28 10:32 | XMS_ITS | Encounter Summary ---
Author Organization Healthcare Address [address] [place] [address] Care Team Providers Care Fire Tower Keeper Name Role Phone Urban Brantley DO Primary Care Provider [phone] Ruma Hernández APARTMENT RENTAL CLERK Unavailable [phone] hCris Medel MD Primary Care Provider [phone] Encounter Details Date Type Department Care Team (Late Contact Info) Description 12/30/2023 Orders Only External Location [address] [place] [address] Urban Stafford MD 1210 [facility] [address] [facility]31 Social History Tobacco Use Types Packs/Day Years [...] 06/08/2025 9:00 AM EDT Appointment [facility] [place] [facility] [address] [facility], [address] [place] [address] 06/08/2025 12:20 PM EDT Office Visit [facility] [address] [facility], [address] [place] [address] Moustapha Katz MD [address] [facility] [address] [place] [address] 06/13/2025 6:45 AM EDT Clinical Support [facility] [address] [facility] [address] [place] [address] 06/13/2025 7:15 AM EDT Appointment [facility] [address], 1[address] [place] [address] 06/13/2025 8:00 AM EDT Office Visit [facility] [address] [facility] [address] [place] [address] Portia Maguire MD [address] [facility] [address] [place] [address] 06/13/2025 11:30 AM EDT Appointment Cardiac Imaging [address] [place] [address] 06/13/2025 2:00 PM EDT Appointment [facility] [address] [place] [address] 10/03/2025 12:45 PM EST Office Visit Medical Office Building Urology [address] [facility], [address] [place] [address] Suhail Brock MD [address] [facility] [address] [place] [address] documented as of this encounter [...] documented as of this encounter Care Teams Fire Tower Keeper Relationship Specialty Start Date End Date Urban Brantley DO [address] [place], [place] [id number] PCP - General 07/30/23 03/13/25 Chris Medel MD [address] [place] [address] PCP - General 03/14/25 Ruma Hernández APRN [address] [place] [address] Referring Physician Gastroenterology 07/30/23 documented as of this encounter
== END 2025-05-28 23:59 | disposition home or self-care (01) ==
LOC: RAD 10:29
PROVIDERS: PCP Family Medicine; Visit Provider Family Medicine
DX: J18.9 Pneumonia, unspecified organism (principal)
CPT/HCPCS: 71046

== ENCOUNTER 2025-06-04 07:03 | Outpatient (CLI) | payer BC, SELFPAY ==
--- OUTSIDE RECORDS SUMMARY | 2023-08-27 08:34 | XMS_ITS | Encounter Summary ---
[facility] [address] [place] [address] Care Team Providers Care Radiopharmacist Name Role Phone Karon Urban Jc DO Primary Care Provider +1 -[phone] Encounter Details Date Type Department Care Team (Late st Contact Info) Description 08/27/2023 8:34 AM EDT Hospital Encounter [facility] PULMONARY & CRITICAL CARE MEDICINE [address] [place] [phone] Social History Tobacco Use Types Packs/Day [...] on filedocumented in this encounter Care Teams Radiopharmacist Relationship Specialty Start Date End Date Urban Brantley DO [address] [place] [address] [place] [address] PCP - General Internal Medicine 03/22/23 documented as of this encounter
--- OUTSIDE RECORDS SUMMARY | 2025-06-04 07:06 | XMS_ITS | Encounter Summary ---
Author Organization Healthcare Address [address] [place] [address] Care Team Providers Care House Detective Name Role Phone KaronUrban Yael CAMARA Primary Care Provider [phone] Ruma Hernández OPERATIONS REPRESENTATIVE Unavailable [phone] Chris Meedl MD Primary Care Provider [phone] Encounter Details Date Type Department Care Team (Late st Contact Info) Description 02/06/2025 Results Follow-Up [facility] [address] [facility] [address] [place] [address] Meaghan Le, RN [facility] LIVER [id number] [address] [place] [id number] Social History Tobacco Use Types Packs/Day Years [...] any clubs o r organizations such as temple groups, unions, fraternal or athletic groups, or [...] Recorded Patient Health Questionnaire-2 Score 0 03/14/2025 [facility] of Occupat ional Health [...] the past 12 months has th e [facility], gas, oil, or water company threatened to [...] Description 06/08/2025 9:00 AM EDT Appointment [facility] [address] [facility], [address] [place] [address] 06/08/2025 12:20 PM EDT Office Visit [facility] [address] [facility], [address] [place] [address] Moustapha Katz MD [address] [facility] [address] [place] [address] 06/13/2025 6:45 AM EDT Clinical Support [facility] [address] [facility] [address] [place] [address] 06/13/2025 7:15 AM EDT Appointment [facility] Radiology [address], 1[address] [place] [address] 06/13/2025 8:00 AM EDT Office Visit [facility] [place] [address] [facility] [address] [place] [address] Portia Maguire MD [address] [facility] [address] [place] [address] 06/13/2025 11:30 AM EDT Appointment Cardiac Imaging [address] [place] [address] 06/13/2025 2:00 PM EDT Appointment [facility] [address] [place] [address] 10/03/2025 12:45 PM EST Office Visit Medical Office Building Urology [address] [facility], [address] [place] [address] Suhail Brock MD [address] [place] [address] documented as of this encounter Visit Diagnoses [...] documented as of this encounter Care Teams House Detective Relationship Specialty Start Date End Date Urban Brantley DO [address] [place] [address] PCP - General 07/30/23 03/13/25 Chris Medel MD [address] [place] [address] PCP - General 03/14/25 Ruma Hernández APRN [address] [place] [address] Referring Physician Gastroenterology 07/30/23 documented as of this encounter
--- OUTSIDE RECORDS SUMMARY | 2025-06-04 07:06 | XMS_ITS | Clinical Summary ---
Author Organization [facility] Address [address] [place] [address] Care Team Providers Care Milling Machine Operator Gear Name Role Phone ToniUrban morataya DO Primary Care Provider [phone] Allergies Active Allergy Reactions Criticality Noted Date Comments Lisinopril Cough Low 09/15/2021 Medications lactulose (CHRONULAC) 10 GM/15ML solutionIndicat ions:Hyperammon emia Take 30 mL by mouth 2 (Two) Times a Day. 5400 mL 3 3 Active Additional Information Patient not taking.Reported on 10/29/2023 carvedilol (COREG) 3.125 MG tablet 1 tablet. 3 Active riFAXIMin (XIFAXAN) 550 MG tablet Take 1 tablet by mouth Every 12 (Twelve) Hours. Active levocetirizine (XYZAL) 5 MG tablet Take 1 tablet by mouth Every Evening. 4 Active CBD oil (cannabidiol) capsule Take by mouth. Activ e furosemide (Lasix) 20 MG tabletIndicatio ns:Other ascites Take 1 tablet by mouth Daily. 90 tablet 3 4 Active spironolactone (Aldactone) 50 MG tabletIndicatio ns:Other ascites Take 1 tablet by mouth Daily. 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 TAKE 1 CAPSULE BY MOUTH DAILY 30 MINUTES PRIOR TO A MEAL 90 capsule 3 4 Active Active Problems Problem Noted Date Diagnosed Date HLD (hyperlipidemia) 10/29/2023 Fatigue 10/29/2023 Immunizations Immunization Administration Dates Next Due Hepatitis B Adult/Adolescent IM 12/28/2023,06/29,06/02/2023 Social History Tobacco Use Types Packs/Day Years Used Date Smoking Tobacco: Former Cigarettes 2 010 - 2012 Smokeless Tobacco: Former Quit: 2013 Tobacco Cessation:Counseling Given: Not Answered Alcohol Use Standard Drinks/Week Comments Not Currently [...] Sign Reading Time Taken Comments Blood Pressure 110/60 02/28/2024 8:19 AM EDT Pulse 70 02/28/2024 8:19 AM EDT Temperature 36.7 C (98 F) 08/27/2023 8:46 AM EDT Respiratory Rate 16 06/21/2023 6:01 PM EDT Oxygen Saturation 96% 02/28/2024 8:19 AM EDT Inhaled Oxygen Concentration - - Weight 101 kg (223 lb) 02/28/2024 8:19 AM EDT Height 172.7 cm (5' 8 ) 02/28/2024 8:19 AM EDT Body Mass Index 33.91 02/28/2024 8:19 AM EDT Plan of Treatment Health Maintenance Due Date Last Done Comments LIPID PANEL 1961 Pneumococcal Vaccine 50+ (1 of 2 - PCV) 02/02/1980 TDAP/TD VACCINES (1 - Tdap) 02/02/1980 COLOGUARD 2006 COLON CANCER SCREENING 5 YEA R SIGMOIDOSCOPY [address] COLONOGRAPHY 2006 FECAL OCCULT BLOOD TEST 2006 FIT Testing (1 year) 2006 ZOSTER VACCINE (1 of 2) 2011 ANNUAL PHYSICAL 03/10/2023 Hepatitis B (3 of 3 - Risk 3 -dose series) 02/22/2024 12/28/2023, 06/29/2023, 06/02/2023 COVID-19 Vaccine ( season) 2024 INFLUENZA VACCINE 08/15/2025 COLONOSCOPY 03/31/2026 03/31/2023 COLORECTAL CANCER SCREENING 03/31/2026 HEPATITIS C SCREENING Completed 08/03/2023, 023 Procedures Procedure Name Priority Date/Time Associated Diagnosis Comments SCANNED - COLONOSCOPY 03/31/2023 from Last 3 Months or Most Recently Relevant to Health Maintenance Results * SCANNED - COLONOSCOPY (03/31/2023) Corby Echeverria MD CHART REVIEW T ABS Final Result from Last 3 Months or Most Recently Relevant to Health Maintenance [facility] PPO Member Subscriber Plan / Payer (Ef fective 2023-Present) Name:David Pop Relation to Subscriber:Self Name:David Pop Payer ID:[id number] (NA) Type:Not on file Address: [facility] [id number] [place] [id number] Care Teams Milling Machine Operator Gear Relationship Specialty Start Date End Date Urban Brantley DO [address] [place] [address] PCP - General Internal Medicine 03/22/23
--- OUTSIDE RECORDS SUMMARY | 2025-06-04 07:06 | XMS_ITS | Encounter Summary ---
Author Organization Healthcare Address [address] [place] [address] Care Team Providers Care Dupligraph Operator Name Role Phone Ruma Hernández Freddie UNINDENTURED APPRENTICE Unavailable [phone] Chris Medel MD Primary Care Provider [phone] Encounter Details Date Type Department Care Team (Late st Contact Info) Description 05/01/2025 Results Follow-Up [facility] Transplant Center [address] [place] [address] Meaghan Le, RN HOSPITAL LIVER [id number] [address] [place] [id number] Social History Tobacco Use Types Packs/Day Years [...] week 02/19/2025 How often do you attend [facility] or jain services? More than 4 times per year 02/19/2025 Do you belong to any clubs o r organizations such as zoroastrian groups, unions, fraternal or athletic groups, or [...] Recorded Patient Health Questionnaire-2 Score 0 03/14/2025 [facility] of Occupat ional Health - Occupational Stress [...] time in the past 12 m [facility], were you homeless or living in [...] Info) Description 06/08/2025 9:00 AM EDT Appointment [facility] Mineral Metabolism [address] [facility], [address] [place] [address] 06/08/2025 12:20 PM EDT Office Visit [facility] Mineral Metabolism [address] [facility], [address] [place] [address] Moustapha Katz MD [address] [facility] [address] [place] [address] 06/13/2025 6:45 AM EDT Clinical Support [facility] Transplant Center [address] [facility] [address] [place] [address] 06/13/2025 7:15 AM EDT Appointment [facility] Radiology [address], 1st [place] [address] 06/13/2025 8:00 AM EDT Office Visit [facility] Trans[facility] [address] [facility] [address] [place] [address] Portia Maguire MD [address] [facility] [address] [place] [address] 06/13/2025 11:30 AM EDT Appointment Cardiac Imaging [address] [place] [address] 06/13/2025 2:00 PM EDT Appointment [facility] [address] [place] [address] 10/03/2025 12:45 PM EST Office Visit Medical Office Building Urology [address] [facility], [address] [place] [address] Suhail Brock MD [address] [place] [address] documented as of this encounter Visit Diagnoses [...] documented as of this encounter Care Teams Dupligraph Operator Relationship Specialty Start Date End Date Chris Medel MD [address] [place] [address] PCP - General 03/14/25 Ruma Hernández APRN [address] [address] Referring Physician Gastroenterology 07/30/23 documented as of this encounter
--- OUTSIDE RECORDS SUMMARY | 2025-06-04 07:06 | XMS_ITS | Encounter Summary ---
Author Organization Healthcare Address [address] [place] [address] Care Team Providers Care Client Specialist Name Role Phone KaronUrban Primary Care Provider [phone] Ruma Hernández ACID SUPERVISOR Unavailable [phone] Chris Medel MD Primary Care Provider [phone] Encounter Details Date Type Department Care Team (Late Contact Info) Description 03/22/2023 Orders Only External Location [address] [place] [address] Provider, External Social History Tobacco [...] 06/08/2025 9:00 AM EDT Appointment [facility] [address], [address] [place] [address] 06/08/2025 12:20 PM EDT Office Visit [facility] [address], [address] [place] [address] Moustapha Katz MD [address] [place] [address] 06/13/2025 6:45 AM EDT Clinical Support [facility] Transplant Center [address] [place] [address] 06/13/2025 7:15 AM EDT Appointment [facility] Radiology [address], 1[address] [place] [address] 06/13/2025 8:00 AM EDT Office Visit [facility] [address] [place] [address] Portia Maguire MD [address] [place] [address] 06/13/2025 11:30 AM EDT Appointment Cardiac Imaging [address] [place] [address] 06/13/2025 2:00 PM EDT Appointment [facility] [address] [place] [address] 10/03/2025 12:45 PM EST Office Visit Medical Office Building Urology [address] [facility], [address] [place] [address] Suhail Brock MD [address] [place] [address] documented as of this encounter Procedures Procedure [...] on filedocumented in this encounter Care Teams Client Specialist Relationship Specialty Start Date End Date Urban Brantley DO [address] [place] [address] PCP - General 07/30/23 03/13/25 Chris Medel MD [address] [place] [address] PCP - General 03/14/25 Ruma Hernández APRN [address] [place] [address] Referring Physician Gastroenterology 07/30/23 documented as of this encounter
--- OUTSIDE RECORDS SUMMARY | 2025-06-04 07:06 | XMS_ITS | Encounter Summary ---
Author Organization Healthcare Address [address] [place] [address] Care Team Providers Care Industrial Organizational Psychologist Name Role Phone Ruma Hernández AUTO RADIATOR MECHANIC Unavailable [phone] Chris Medel MD Primary Care Provider [phone] Encounter Details Date Type Department Care Team (Late st Contact Info) Description 04/03/2025 Results Follow-Up [facility] Transplant [facility] [address] [place] [address] Meaghan Le, RN HOSPITAL LIVER [id number] [address] [place] [id number] Social History Tobacco Use Types Packs/Day Years [...] How often do you attend [facility] or orthodox services? More than 4 times [...] Recorded Patient Health Questionnaire-2 Score 0 03/14/2025 [facility] of Occupat ional Health - Occupational [...] Info) Description 06/08/2025 9:00 AM EDT Appointment [facility] Mineral Metabolism [address] [facility], [address] [place] [address] 06/08/2025 12:20 PM EDT Office Visit [facility] [address] [facility], [address] [place] [address] Moustapha Katz MD [address] [facility] [address] [place] [address] 06/13/2025 6:45 AM EDT Clinical Support [facility] Transplant Center [address] [facility] [address] [place] [address] 06/13/2025 7:15 AM EDT Appointment [facility] Radiology [address], 1[address] [place] [address] 06/13/2025 8:00 AM EDT Office Visit [facility] Transplant Center [address] [facility] [address] [place] [address] Portia Maguire MD [address] [facility] [address] [place] [address] 06/13/2025 11:30 AM EDT Appointment Cardiac Imaging [address] [place] [address] 06/13/2025 2:00 PM EDT Appointment [facility] [address] [place] [address] 10/03/2025 12:45 PM EST Office Visit Medical Office Building Urology [address] [facility], [address] [place] [address] Suhail Brock MD [address] [place] [address] documented as of this encounter Visit Diagnoses [...] documented as of this encounter Care Teams Industrial Organizational Psychologist Relationship Specialty Start Date End Date Chris Medel MD [address] [place] [address] PCP - General 03/14/25 Ruma Hernández APRN [address] [address] Referring Physician Gastroenterology 07/30/23 documented as of this encounter
--- OUTSIDE RECORDS SUMMARY | 2025-06-04 07:06 | XMS_ITS | Encounter Summary ---
Author Organization Healthcare Address [address] [place] [address] Care Team Providers Care Customer Service Professional Name Role Phone KaronUrban Primary Care Provider [phone] Ruma Hernández ELECTRICAL ASSEMBLY TECHNICIAN Unavailable [phone] Chris Medel MD Primary Care Provider [phone] Encounter Details Date Type Department Care Team (Late Contact Info) Description 03/22/2023 Orders Only External Location [address] [place] [address] Provider, External Social History Tobacco [...] 06/08/2025 9:00 AM EDT Appointment [facility] [place] [facility] [address], [address] [place] [address] 06/08/2025 12:20 PM EDT Office Visit [facility] [place] [facility] [address], [address] [place] [address] Moustapha Katz MD [address] [place] [address] 06/13/2025 6:45 AM EDT Clinical Support [facility] Transplant Center [address] [place] [address] 06/13/2025 7:15 AM EDT Appointment [facility] Radiology [address] 1[address] [place] [address] 06/13/2025 8:00 AM EDT Office Visit [facility] Transplant Center [address] [place] [address] Portia Maguire MD [address] [place] [address] 06/13/2025 11:30 AM EDT Appointment Cardiac Imaging [address] [place] [address] 06/13/2025 2:00 PM EDT Appointment [facility] [address] [place] [address] 10/03/2025 12:45 PM EST Office Visit Medical Office Building Urology [address] [facility], [address] [place] [address] Suhail Brock MD [address] [place] [address] documented as of this encounter Procedures Procedure [...] on filedocumented in this encounter Care Teams Customer Service Professional Relationship Specialty Start Date End Date Urban Brantley DO [address] [place] [address] PCP - General 07/30/23 03/13/25 Chris Medel MD [address] [place] [address] PCP - General 03/14/25 Ruma Hernández APRN [address] [place] [address] Referring Physician Gastroenterology 07/30/23 documented as of this encounter
--- OUTSIDE RECORDS SUMMARY | 2025-06-04 07:06 | XMS_ITS | Encounter Summary ---
[facility] Organization [facility] Address [address] [place] [address] Care Team Providers Care Certified Coatings Inspector Name Role Phone KaronUrban Hosea CAMARA Primary Care Provider [phone] Encounter Details Date Type Department Care Team (Late st Contact Info) Description 10/14/2023 Telephone [facility] GASTROENTEROLOGY [address] [facility] [address] [place] [address] Ruma Hernández, AIRCRAFT TIME CLERK 1780 [facility] 202 [place], [place] [id number] Social History Tobacco Use Types Packs/Day Years Used Date Smoking Tobacco: Former Cigarettes 2 - 2012 Smokeless Tobacco: Former Quit: 2013 Alcohol Use Standard Drinks/Week Comments Not Currently 0 (1 standard drink = 0.6 oz pur e alcohol) Abuse Screen Answer Date Recorded Feels Unsafe at Home or Work/School no 06/21/2023 Feels Threatened by Someone no 05/2023 Does Anyone Try to Keep You From Having Contact with Others or Doing Things Outside Your Home? no 06/21/2023 Physical Signs of Abuse Present no 06/21/2023 Housing Stability Answer Date Recorded Current Living [...] on file documented as of this encounter Visit Diagnoses Not on filedocumented in this encounter Care Teams Certified Coatings Inspector Relationship Specialty Start Date End Date Urban Brantley DO [address] [place] [address] PCP - General Internal Medicine 03/22/23 documented as of this encounter
--- OUTSIDE RECORDS SUMMARY | 2025-06-04 07:06 | XMS_ITS | Encounter Summary ---
Author Organization Healthcare Address [address] [place] [address] Care Team Providers Care Automatic Mounter Name Role Phone Ruma Hernández STORAGE BATTERY INSPECTOR Unavailable [phone] Chris Medel MD Primary Care Provider [phone] Encounter Details Date Type Department Care Team (Late st Contact Info) Description 03/30/2025 Results Follow-Up [facility] [address] [place] [address] Meaghan Le, RN [id number] [address] [id number] Social History Tobacco Use Types Packs/Day Years [...] week 02/19/2025 How often do you attend [facility] or yazidism services? More than 4 times per year 02/19/2025 Do you belong to any clubs o r organizations such as jehovah's witness groups, unions, fraternal or athletic groups, or [...] Recorded Patient Health Questionnaire-2 Score 0 03/14/2025 [facility] - [...] time in the past 12 m [facility], were you homeless or living [...] Upcoming Encounters Date Type Department Care Team ([facility] st Contact Info) Description 06/08/2025 9:00 AM EDT Appointment [facility] [address], [address] [place] [address] 06/08/2025 12:20 PM EDT Office Visit [facility] [address], [address] [place] [address] Moustapha Katz MD [address] [place] [address] 06/13/2025 6:45 AM EDT Clinical Support [facility] [address] [facility] [address] [place] [address] 06/13/2025 7:15 AM EDT Appointment [facility] Rad[facility] [address] [place] [address] 06/13/2025 8:00 AM EDT Office Visit [facility] [place] [address] [place] [address] Portia Maguire MD [address] [place] [address] 06/13/2025 11:30 AM EDT Appointment Cardiac Imaging [address] [place] [address] 06/13/2025 2:00 PM EDT Appointment [facility] [address] [place] [address] 10/03/2025 12:45 PM EST Office Visit Medical Office Building Urology [address], [address] [place] [address] Suhail Brock MD [address] [facility] [address] [place] [address] documented as of this encounter [...] documented as of this encounter Care Teams Automatic Mounter Relationship Specialty Start Date End Date Chris Medel MD [address] [place] [address] PCP - General 03/14/25 Ruma Hernández APRN [address] [address] Referring Physician Gastroenterology 07/30/23 documented as of this encounter
--- OUTSIDE RECORDS SUMMARY | 2025-06-04 07:06 | XMS_ITS | Encounter Summary ---
Author Organization Healthcare Address [address] [place] [address] Care Team Providers Care Tugboat Pilot Name Role Phone KaronUrban Primary Care Provider [phone] Ruma Hernández PAINT COATING MACHINE OPERATOR Unavailable [phone] Chris Medel MD Primary Care Provider [phone] Encounter Details Date Type Department Care Team (Late Contact Info) Description 05/09/2023 Orders Only External Location [address] [place] [address] Provider, External Social History Tobacco [...] 06/08/2025 9:00 AM EDT Appointment [facility] [address], [address] [place] [address] 06/08/2025 12:20 PM EDT Office Visit [facility] [address], [address] [place] [address] Moustapha Katz MD [address] [place] [address] 06/13/2025 6:45 AM EDT Clinical Support [facility] [address] [place] [address] 06/13/2025 7:15 AM EDT Appointment [facility] Rad[facility] [address] 1[address] [place] [address] 06/13/2025 8:00 AM EDT Office Visit [facility] [address] [place] [address] Portia Maguire MD [address] [place] [address] 06/13/2025 11:30 AM EDT Appointment Cardiac Imaging [address] [place] [address] 06/13/2025 2:00 PM EDT Appointment [facility] [address] [place] [address] 10/03/2025 12:45 PM EST Office Visit Medical Office Building Urology [address] [facility] [address] [facility] [address] [facility], [address] [place] [address] Suhail Brock MD [address] [facility] [address] [place] [address] documented as of this encounter Procedures Procedure [...] on filedocumented in this encounter Care Teams Tugboat Pilot Relationship Specialty Start Date End Date Urban Brantley DO [address] [place] [address] PCP - General 07/30/23 03/13/25 Chris Medel MD [address] [place] [address] PCP - General 03/14/25 Ruma Hernández APRN [address] [place] [address] Referring Physician Gastroenterology 07/30/23 documented as of this encounter
--- OUTSIDE RECORDS SUMMARY | 2025-06-04 07:06 | XMS_ITS | Encounter Summary ---
[facility] [address] [place] [address] Care Team Providers Care Biologist Aide Name Role Phone KaronUrban Hosea CAMARA Primary Care Provider [phone] Encounter Details Date Type Department Care Team (Late st Contact Info) Description 10/14/2023 Telephone [facility] GASTROENTEROLOGY [address] [facility] [address] [place] [address] Ruma Hernández, HOME HEALTH CNA [address] [facility] [address] [place], [place] [id number] Social History Tobacco Use Types Packs/Day Years [...] on filedocumented in this encounter Care Teams Biologist Aide Relationship Specialty Start Date End Date Urban Brantley DO [address] [place] [address] PCP - General Internal Medicine 03/22/23 documented as of this encounter
--- OUTSIDE RECORDS SUMMARY | 2025-06-04 07:06 | XMS_ITS | Clinical Summary ---
Author Organization Address [address] [place] [address] Care Team Providers Care Beauty Sales Consultant Name Role Phone Ruma Hernández ROGUER Unavailable [phone] Chris Medel MD Primary Care Provider [phone] Allergies Active Allergy Reactions Criticality Noted Date Comments Lisinopril Cough Low 09/15/2021 Medications carvedilol (Coreg) 3.125 MG tabletIndication s:Cirrhosis of liver with ascites, unspecified hepatic cirrhosis type (CMS/HCC) Take 1 tablet (3.125 mg) by mouth 2 (two) times a day with meals. 60 tablet 11 4 09/13/20 25 Active Xifaxan 550 MG tablet 5 Active ergocalciferol (Vitamin D-2) 1.25 MG (13391 UT) capsule Take 1 capsule by mouth [...] Type Department Care Team Description 05/22/2025 Telephone [facility] [place] [address] [place] [phone] Meaghan Le RN 05/01/2025 Results Follow-Up [facility] [place] [address] [place] [phone] Meaghan Le RN 04/03/2025 Results Follow-Up [facility] [place] [address] [place] [phone] Meaghan Le RN 03/30/2025 Results Follow-Up [facility] [place] [address] [place] [phone] Meaghan Le RN 03/14/2025 9:16 AM EDT - 03/14/2025 11:59 PM EDT Hospital Encounter [facility] [address] [place] [address] Pre-liver transplant, listed Discharge Disposition: Home or Self Care 03/14/2025 8:00 AM EDT Office Visit [facility] [place] [address] [facility] [address] [place] [phone] Zarina Moore, PA Alcoholic cirrhosis of liver with ascites (CMS/HCC) (Primary Dx); Left inguinal hernia; Bilateral leg edema; Cirrhosis of liver with ascites, unspecified hepatic cirrhosis type (CMS/HCC); Other ascites 03/14/2025 6:59 AM EDT - 03/14/2025 9:15 AM EDT Hospital Encounter [facility] [address] [place] [address] Nephrolithiasis Discharge Disposition: Home or Self Care 03/14/2025 Travel 03/06/2025 4:00 PM EDT Office Visit [facility] [address] , [address] [place] [address] Moustapha Katz MD Other osteoporosis without current pathological fracture (Primary Dx); Alcoholic cirrhosis of liver with ascites (CMS/HCC); Iron overload; Obesity (BMI 35.0-39.9 without comorbidity); Vitamin D deficiency; Other ascites 03/06/2025 Telephone [facility] [address] , [address] [place] [address] Dulce Millre B 03/05/2025 Results Follow-Up [facility] [address] [place] [phone] Meaghan Le RN 03/05/2025 Travel from Last [...] week 02/19/2025 How often do you attend [facility] or oriental orthodox services? More than 4 times per [...] Recorded Patient Health Questionnaire-2 Score 0 03/14/2025 [facility] Occupational Stress Questionnaire Answer Date [...] any time in the past [facility], were you homeless or living in a long-term (including now)? No 02/19/2025 Utilities Answer Date Recorded In the past 12 months has th e [employer], gas, oil, or water [employer] threatened to shut off services in your [...] Info) Description 06/08/2025 9:00 AM EDT Appointment [facility] [address], [address] [place] [phone] 06/08/2025 12:20 PM EDT Office Visit [facility] [address], [address] [place] [phone] Moustapha Katz MD [address] [place] [phone] 06/13/2025 6:45 AM EDT Clinical Support [facility] [address] [facility] [address] [place] [phone] 06/13/2025 7:15 AM EDT Appointment [facility] [address] [place] [address] 06/13/2025 8:00 AM EDT Office Visit [facility] [address] [facility] [address] [place] [address] Portia Maguire MD [address] [facility] [address] [place] [address] 06/13/2025 11:30 AM EDT Appointment Cardiac Imaging [address] [place] [address] 06/13/2025 2:00 PM EDT Appointment [facility] [address] [place] [address] 10/03/2025 12:45 PM EST Office Visit Medical [facility] Urology [address], [address] [place] [address] Suhail Brock MD [address] [place] [phone] Health Maintenance Due Date Last Done Comments [...] - Risk 60-74 years 1-dose series) 2021 [id number] Vaccine ( - season) 2024 UKY-Bone Density [...] 04/30/2025 Result [facility] MD LAB BLOOD ORDERABLES Nadia [...] 04/30/2025 Result [facility] MD LAB BLOOD ORDERABLES Nadia l Result * Hemoglobin, Blood (03/26/2025) Pathologist [facility] External Hemoglobin (Hgb) 11.70 Blood Venous blood specimen / Unknown 03/26/2025 Result [facility] MD LAB BLOOD ORDERABLES Nadia l Result * Hematocrit, Blood (03/26/2025) Pathologist [facility] External Hematocrit (Hct) 34.1 Blood Venous blood [...] are consistent with and integrated into the [employer] for the Study of Liver Diseases [...] are consistent with and integrated into the [place] Associationfor the Study of Liver Diseases (AASLD) [...] <20 <20 ng/mL 03/15 5:41 AM EDT [facility] Alpha OH Midazolam <20 <20 ng/mL 2024 5:41 AM EDT [facility] Alpha OH Triazolam <20 <20 ng/mL 2024 5:41 AM EDT [facility] Alprazolam <10 <10 ng/mL 03/15/2025 5:41 AM EDT [facility] Aminoclonazepam <20 <20 ng/mL 5:41 AM EDT [facility] Amphetamine <50 <50 ng/mL 03/15/2025 5:41 AM EDT [facility] Benzoylecgonine <50 <50 ng/mL 5:41 AM EDT [facility] Buprenorphine <10 <10 ng/mL 03/15/2025 5:41 AM EDT [facility] Buprenorphine Glucuronide <50 <50 ng/mL 03/15/2025 5:41 AM EDT [facility] Butalbital <50 <50 ng/mL 03/15/2025 5:41 AM EDT [facility] 9 Carboxy THC <10 <10 ng/mL 03/15/2025 5:41 AM EDT [facility] 9 Carboxy THC Glucuronide <25 <25 ng/mL 03/15/2025 5:41 AM EDT [facility] Clonazepam <10 <10 ng/mL 03/15/2025 5:41 AM EDT [facility] Codeine <50 <50 ng/mL 03/15/2025 5:41 AM EDT [facility] Codeine Glucuronide <50 <50 ng/mL 03/15 5:41 AM EDT [facility] Cyclobenzaprine <50 <50 ng/mL 5:41 AM EDT [facility] Desmethyl Tramadol <50 <50 ng/mL 2024 5:41 AM EDT [facility] Diazepam <10 <10 ng/mL 03/15/2025 5:41 AM EDT [facility] EDDP - Methadone Metabolite <50 <50 ng/mL 03/15/2025 5:41 AM EDT [facility] Fentanyl <1 <1 ng/mL 03/15/2025 5:41 AM EDT [facility] Hydrocodone <50 <50 ng/mL 03/15/2025 5:41 AM EDT [facility] Hydromorphone <50 <50 ng/mL 03/15/2025 5:41 AM EDT [facility] Hydromorphone Glucuronide <50 <50 ng/mL 03/15/2025 5:41 AM EDT [facility] Lorazepam <20 <20 ng/mL 03/15/2025 5:41 AM EDT [facility] Lorazepam Glucuronide <50 <50 ng/mL 03/15/2025 5:41 AM EDT [facility] MDA <50 <50 ng/mL 03/15/2025 5:41 AM EDT [facility] MDMA <50 <50 ng/mL 03/15/2025 5:41 AM EDT [facility] Meperidine <50 <50 ng/mL 03/15/2025 5:41 AM EDT [facility] Methadone <50 <50 ng/mL 03/15/2025 5:41 AM EDT [facility] Methamphetamine <50 <50 ng/mL 5:41 AM EDT [facility] Methylphenidate <50 <50 ng/mL 5:41 AM EDT [facility] 6 Monoacetyl morphine <10 <10 ng/mL 03/15/2025 5:41 AM EDT [facility] Morphine <50 <50 ng/mL 03/15/2025 5:41 AM EDT [facility] Morphine Glucuronide <50 <50 ng/mL 11/2024 5:41 AM EDT [facility] Naloxone <50 <50 ng/mL 03/15/2025 5:41 AM EDT [facility] Naloxone Glucuronide <50 <50 ng/mL 11/2024 5:41 AM EDT [facility] Norbuprenorphine <10 <10 ng/mL 03/15/20 5:41 AM EDT [facility] Norbuprenorphine Glucuronide <50 <50 ng/mL 03/15/2025 5:41 AM EDT [facility] Nordiazepam <20 <20 ng/mL 03/15/2025 5:41 AM EDT [facility] Norfentanyl <2 <2 ng/mL 03/15/2025 5:41 AM EDT [facility] Normeperidine <50 <50 ng/mL 03/15/2025 5:41 AM EDT [facility] PCP Quant, Ur <50 <50 ng/mL 03/15/2025 5:41 AM EDT [facility] Phenobarbital <50 <50 ng/mL 03/15/2025 5:41 AM EDT [facility] Oxazepam <20 <20 ng/mL 03/15/2025 5:41 AM EDT [facility] Oxazepam Glucuronide <50 <50 ng/mL 11/2024 5:41 AM EDT [facility] Oxycodone <50 <50 ng/mL 03/15/2025 5:41 AM EDT [facility] Oxymorphone <50 <50 ng/mL 03/15/2025 5:41 AM EDT [facility] Oxymorphone Glucuronide <50 <50 ng/mL 03/15/2025 5:41 AM EDT [facility] Secobarbital <50 <50 ng/mL 03/15/2025 5:41 AM EDT [facility] Tramadol <50 <50 ng/mL 03/15/2025 5:41 AM EDT [facility] Temazepam <20 <20 ng/mL 03/15/2025 5:41 AM EDT [facility] Temazepam Glucuronide <50 <50 ng/mL 03/15/2025 5:41 AM EDT [facility] Urine Urine specimen obtained by clean catch procedure / Unknown Non-blood Collection / Unknown 03/14/2025 6:43 AM EDT 03/14/2025 7:51 AM EDT Narrative [facility] - 03/15/2025 5:41 AM [...] developed and its performance characteristics determined by [email or web address] in manner consistent with CLIA requirements. This test has not been cleared or approved by the FDA. us Portia Maguire MD LAB URINE ORDERABLES Nadia l Result Performing Organization Address [facility] Co de Phone Number [facility] [address] [place] [address] * Alpha Fetoprotein, Serum (03/14/2025 6:43 AM EDT) Alpha Fetoprotein, Serum <2.3 <10.0 ng/mL 03/14/2025 9:07 AM EDT [facility] Blood Venous blood specimen / Unknown Venipuncture / Unknown 03/14/2025 6:43 AM EDT 03/14/2025 6:59 AM EDT Narrative [facility] - 03/14/2025 9:07 AM EDT Performed by Stacey electrochemiluminescent immunoassay which is traceable to the [address] [place] [address] WHO Reference standard 72/255. Results obtained with different test methods or kits cannot be used interchangeably. Portia Maguire MD LAB BLOOD ORDERABLES Nadia l Result Performing Organization Address [facility] de Phone Number [facility] [address] [place] [address] * Nicotine Cotinine Metabolite (03/14/2025 6:43 AM EDT) NICOTINE <5 <5 ng/mL 03/15/2025 8:4 3 AM EDT [facility] Cotinine <5 <5 ng/mL 03/15/2025 8:4 3 AM EDT [facility] Blood Venous blood specimen / Unknown Venipuncture / Unknown 03/14/2025 6:43 AM EDT 03/14/2025 6:59 AM EDT Narrative [facility] - 03/15/2025 8:43 AM EDT Testing performed by LC-MS/MS at the [facility]Toxicology [facility]. This test was developed and its performance characteristics determined by [email or web address]. This assay has not been cleared by the FDA. The laboratory is regulated under CLIA as qualified to perform high-complexity testing. This test is used for clinical purposes. Portia Maguire MD LAB BLOOD ORDERABLES Nadia l Result Performing Organization Address [facility] Co de Phone Number [facility] [address] [place] [address] * Alcohol Urine (03/14/2025 6:43 AM EDT) Alcohol Urine Negative Negative 03/14/2025 2:26 PM EDT [facility] Urine Urine specimen obtained by clean catch procedure / Unknown Non-blood Collection / Unknown 03/14/2025 6:43 AM EDT 03/14/2025 7:51 AM EDT Narrative [facility] - 03/14/2025 2:26 PM EDT The correlation between urine and serum ethanol concentration is highly variable. Test performed by Gas Chromatography at the [facility]. This test was developed and its performance characteristics determined by [facility]. It has not been cleared or approved by the FDA.The laboratory is regulated under CLIA as qualified to perform high-complexity testing. This test is used for clinical purposes only. The correlation between urine and serum ethanol concentration is highly variable. Test performed by Gas Chromatography at the [facility]. This test was developed and its performance characteristics determined by [email or web address]. It has not been cleared or approved by the FDA.The laboratory is regulated under CLIA as qualified to perform high-complexity testing. This test is used for clinical purposes only. Portia Maguire MD LAB URINE ORDERABLES Nadia l Result Performing Organization Address [facility] Co de Phone Number [facility] [address] [place] [address] * Comprehensive Urine Drug Screening, Qualitative Assay, >= 27 Drug Classes (03/14/2025 6:43 AM EDT) Acetaminophen Negative Negative 03/26/2025 9:38 AM EDT [facility] Alprazolam Negative Negative 03/26/2025 9:38 AM EDT [facility] Amantadine Negative Negative 03/26/2025 9:38 AM EDT [facility] Amitriptyline Negative Negative 03/26/2025 9:38 AM EDT [facility] Amphetamine Negative Negative 03/26/2025 9:38 AM EDT [facility] Atenolol Negative Negative 03/26/2025 9:38 AM EDT [facility] Benzoylecgonine Negative Negative 9:38 AM EDT [facility] Bisoprolol Negative Negative 03/26/2025 9:38 AM EDT [facility] Bupropion Negative Negative 03/26/2025 9:38 AM EDT [facility] Butalbital Negative Negative 03/26/2025 9:38 AM EDT [facility] Carbamazepine Negative Negative 03/26/2025 9:38 AM EDT [facility] Carisoprodol Negative Negative 03/26/2025 9:38 AM EDT [facility] Chlorpheniramine Negative Negative 03/26/20 9:38 AM EDT [facility] Citalopram Negative Negative 03/26/2025 9:38 AM EDT [facility] Clindamycin Negative Negative 03/26/2025 9:38 AM EDT [facility] Clonidine Negative Negative 03/26/2025 9:38 AM EDT [facility] Clopidogrel / Ticlopidine Negative Negative 03/26/2025 9:38 AM EDT [facility] Cocaethylene Negative Negative 03/26/2025 9:38 AM EDT [facility] Cocaine Negative Negative 03/26/2025 9:38 AM EDT [facility] Codeine Negative Negative 03/26/2025 9:38 AM EDT [facility] Cyclobenzaprine Negative Negative 9:38 AM EDT [facility] Desvenlafaxine Negative Negative 03/26/2025 9:38 AM EDT [facility] Dextromethorphan Negative Negative 03/26/20 9:38 AM EDT [facility] Diazepam Negative Negative 03/26/2025 9:38 AM EDT [facility] Diltiazem Negative Negative 03/26/2025 9:38 AM EDT [facility] Diphenhydramine Negative Negative 9:38 AM EDT [facility] Doxepine Negative Negative 03/26/2025 9:38 AM EDT [facility] Doxylamine Negative Negative 03/26/2025 9:38 AM EDT [facility] EDDP-Methadone metabolite Negative Negative 03/26/2025 9:38 AM EDT [facility] Fentanyl Negative Negative 03/26/2025 9:38 AM EDT [facility] Fluconazole Negative Negative 03/26/2025 9:38 AM EDT [facility] Fluoxetine Negative Negative 03/26/2025 9:38 AM EDT [facility] Guaifenesin Negative Negative 03/26/2025 9:38 AM EDT [facility] Haloperidol Negative Negative 03/26/2025 9:38 AM EDT [facility] Heroin/6-MARY Negative Negative 03/26/2025 9:38 AM EDT [facility] Hydrocodone Negative Negative 03/26/2025 9:38 AM EDT [facility] Hydroxyzine / Cetirizine metabolite Negative Negative 03/26/2025 9:38 AM EDT [facility] Ibuprofen Negative Negative 03/26/2025 9:38 AM EDT [facility] Imipramine Negative Negative 03/26/2025 9:38 AM EDT [facility] Ketamine Negative Negative 03/26/2025 9:38 AM EDT [facility] Labetolol Negative Negative 03/26/2025 9:38 AM EDT [facility] Lamotrigine Negative Negative 03/26/2025 9:38 AM EDT [facility] Levetiracetam Negative Negative 03/26/2025 9:38 AM EDT [facility] Lidocaine Negative Negative 03/26/2025 9:38 AM EDT [facility] MDA Negative Negative 03/26/2025 9:38 AM EDT [facility] MDMA Negative Negative 03/26/2025 9:38 AM EDT [facility] Memantine Negative Negative 03/26/2025 9:38 AM EDT [facility] Meperidine Negative Negative 03/26/2025 9:38 AM EDT [facility] Meprobamate Negative Negative 03/26/2025 9:38 AM EDT [facility] Metaxalone Negative Negative 03/26/2025 9:38 AM EDT [facility] Methamphetamine Negative Negative 9:38 AM EDT [facility] Methocarbamol Negative Negative 03/26/2025 9:38 AM EDT [facility] Methylecgonine Negative Negative 03/26/2025 9:38 AM EDT [facility] Metoclopramide Negative Negative 03/26/2025 9:38 AM EDT [facility] Metoprolol Negative Negative 03/26/2025 9:38 AM EDT [facility] Metronidazole Negative Negative 03/26/2025 9:38 AM EDT [facility] Midazolam Negative Negative 03/26/2025 9:38 AM EDT [facility] Midazolam Metabolite Negative Negative 03/15 9:38 AM EDT [facility] Mirtazapine Negative Negative 03/26/2025 9:38 AM EDT [facility] Misc Test Result Negative Negative 03/26/20 9:38 AM EDT [facility] Naproxen Negative Negative 03/26/2025 9:38 AM EDT [facility] Nefazodone Negative Negative 03/26/2025 9:38 AM EDT [facility] Norfentanyl Negative Negative 03/26/2025 9:38 AM EDT [facility] Nortriptyline Negative Negative 03/26/2025 9:38 AM EDT [facility] Ordanstron Negative Negative 03/26/2025 9:38 AM EDT [facility] Oxcarbazepine Negative Negative 03/26/2025 9:38 AM EDT [facility] Oxycodone Negative Negative 03/26/2025 9:38 AM EDT [facility] Paroxethine Negative Negative 03/26/2025 9:38 AM EDT [facility] Phenobarbital Negative Negative 03/26/2025 9:38 AM EDT [facility] Phentermine Negative Negative 03/26/2025 9:38 AM EDT [facility] Phenytoin Negative Negative 03/26/2025 9:38 AM EDT [facility] Primidone Negative Negative 03/26/2025 9:38 AM EDT [facility] Promethazine Negative Negative 03/26/2025 9:38 AM EDT [facility] Propofol Negative Negative 03/26/2025 9:38 AM EDT [facility] Propranolol Negative Negative 03/26/2025 9:38 AM EDT [facility] Quetiapine Negative Negative 03/26/2025 9:38 AM EDT [facility] Quinine Negative Negative 03/26/2025 9:38 AM EDT [facility] Rantidine Negative Negative 03/26/2025 9:38 AM EDT [facility] Sertraline Negative Negative 03/26/2025 9:38 AM EDT [facility] Spironolactone Negative Negative 03/26/2025 9:38 AM EDT [facility] Tizanidine Negative Negative 03/26/2025 9:38 AM EDT [facility] Topiramate Negative Negative 03/26/2025 9:38 AM EDT [facility] Tramadol Negative Negative 03/26/2025 9:38 AM EDT [facility] Trazadone/ Trazadone metabolite Negative Negative 03/26/2025 9:38 AM EDT [facility] Trimethoprim Negative Negative 03/26/2025 9:38 AM EDT [facility] Valproic Acid Negative Negative 03/26/2025 9:38 AM EDT [facility] Venlafaxine Negative Negative 03/26/2025 9:38 AM EDT [facility] Verapamil Negative Negative 03/26/2025 9:38 AM EDT [facility] Zolpidem Negative Negative 03/26/2025 9:38 AM EDT [facility] Xylazine Negative Negative 03/26/2025 9:38 AM EDT [facility] Urine Urine specimen obtained by clean catch procedure / Unknown Non-blood Collection / Unknown 03/14/2025 6:43 AM EDT 03/14/2025 7:51 AM EDT Narrative [facility] - 03/26/2025 9:38 AM EDT Test performed by: [employer] [address] [place] [id number] [place] Portia Maguire MD LAB URINE ORDERABLES Nadia l Result [facility] [address] [place] [address] * Dexa Bone Density (04/11/2024 12:32 PM [...] the non-dominant forearm was performed using a [employer] Horizon A Dual- energy X-ray Absorptiometry (DXA) [...] the non-dominant forearm was performed using a [employer] A Dual- energy X-ray Absorptiometry (DXA) scanner (software [id number]). COMPARISON/CORRELATION: No comparison. No recent correlative imaging. [...] 2 Antibody/Antigen Screen (04/11/2024 6:27 AM EDT) [facility] HIV 1 & 2 Antibody/Antigen Screen Non Reactive Non Reactive 04/11/2024 7:32 AM EDT [facility] Comment:Screening for HIV 1 & 2 antibodies, and P24 antigen is NONREACTIVE. No confirmatory testing is required. Blood Venous blood specimen / Unknown Venipuncture / Unknown 04/11/2024 6:27 AM EDT 04/11/2024 6:51 AM EDT Delilah Joshua MD LAB BLOOD ORDERABLES [facility] [address] [place] [address] * Hepatitis C Antibody (08/03/2023 7:30 AM EDT) [facility] [facility] Hep[facility] C Antibody Negative Negative 08/03/2023 8:47 AM EDT [facility] Blood Venous blood specimen / Unknown Venipuncture / Unknown 08/03/2023 7:30 AM EDT 08/03/2023 8:05 AM EDT Bird Kennedy MD LAB BLOOD ORDERABLES Final Resul t Performing Organization Address City/[facility] Co de Phone Number [facility] [address] [place] [address] from Last 3 Months or Most Recently Relevant to Health Maintenance Insurance [facility] [address] [place] [address] ANTHEM Care Teams Beauty Sales Consultant Relationship Specialty Start Date End Date Chris Medel MD [address] [place] [address] PCP - General 03/14/25 Ruma Hernández APRN [address] [facility] [address] [place] [address] Referring Physician Gastroenterology 07/30/23
--- OUTSIDE RECORDS SUMMARY | 2025-06-04 07:06 | XMS_ITS | Data Portability ---
Author Organization [place] & JULIANA Louie ADMIN Address [address] [place] [address] Assessment Encounter Date Assessment Date Assessment LastModified [...] in punctuate muhammad and or spelling, etc. [email or web address] Not available 2023 11:56:25 Plan of Treatment [...] WBC 4.1 K/uL 4.0-10 .5 Not Available [facility] ([facility]) [address] [place], [address], 02/10/2023 10:08:24 02/11/20 23 02/10/2023 CBC AUTO NO DIFF (HEMO GRAM) RBC 4.0 M/mm3 4.7-6. 1 low Not Available [facility] ([facility]) [address] [place], [address], 02/10/2023 10:08:24 02/11/20 23 02/10/2023 CBC AUTO NO DIFF (HEMO GRAM) HGB 13.8 gm/dL 13.5-1 8.0 Not Available [facility] ([facility]) [address] [facility], [place], [address], 02/10/2023 10:08:24 02/11/20 23 02/10/2023 CBC AUTO NO DIFF (HEMO GRAM) HCT 40.3 % 42.0-5 2.0 low Not Available [facility] ([facility]) [address] [place], [address], 02/10/2023 10:08:24 02/11/20 23 02/10/2023 CBC AUTO NO DIFF (HEMO GRAM) MCV 101.8 fL 78-100 high Not Available [facility] ([facility]) [address] [place], [address], 02/10/2023 10:08:24 02/11/20 23 02/10/2023 CBC AUTO NO DIFF (HEMO GRAM) MCH 34.8 pg 27-31 high Not Available [facility] ([facility]) [address], [place], [address], 02/10/2023 10:08:24 02/11/20 23 02/10/2023 CBC AUTO NO DIFF (HEMO GRAM) MCHC 34.2 g/dL 32-36 Not Available [facility] ([facility]) [address], [place], [address], 02/10/2023 10:08:24 02/11/20 23 02/10/2023 CBC AUTO NO DIFF (HEMO GRAM) RDW 15.9 % 11.5-1 4.0 high Not Available [facility] ([facility]) [address], [place], [address], 02/10/2023 10:08:24 02/11/20 23 02/10/2023 CBC AUTO NO DIFF (HEMO GRAM) platelet count 71 K/uL 150-45 0 low Not Available [facility] ([facility]) [address] [facility], [place], [address], 02/10/2023 10:08:24 02/11/20 23 02/10/2023 CBC AUTO NO DIFF (HEMO GRAM) manual differential NO Not Available [facility] ([facility]) [address] [place], [address], 02/10/2023 10:08:24 02/11/20 23 02/10/2023 COMP METAB OLIC PANEL sodium 139 mmol/ L 136-14 5 Not Available [facility] ([facility]) [address] [place], [address], 02/10/2023 10:40:35 02/11/20 23 02/10/2023 COMP METAB OLIC PANEL potassium 3.7 mmol/ L 3.6-5. 0 Not Available [facility] ([facility]) [address], [place], [address], 02/10/2023 10:40:35 02/11/20 23 02/10/2023 COMP METAB OLIC PANEL chloride 105 mmol/ L 98-107 Not Available [facility] ([facility]) [address], [place], [address], 02/10/2023 10:40:35 02/11/20 23 02/10/2023 COMP METAB OLIC PANEL carbon dioxide 26.3 mmol/ L 21.0-3 2.0 Not Available [facility] ([facility]) [address], [place], [address], 02/10/2023 10:40:35 02/11/20 23 02/10/2023 COMP METAB OLIC PANEL anion gap 11.4 Not Available [facility]) [address] , [place], [address], 02/10/2023 10:40:35 02/11/20 23 02/10/2023 COMP METAB OLIC PANEL glucose 108 mg/dL 70-120 Not Available [facility] ([facility]) [address] , [place], [address], 02/10/2023 10:40:35 02/11/20 23 02/10/2023 COMP METAB OLIC PANEL BUN 5 mg/dL 7-18 low Not Available [facility] ([facility]) [address] , [place], [address], 02/10/2023 10:40:35 02/11/20 23 02/10/2023 COMP METAB OLIC PANEL creatinine 0.7 mg/dL 0.6-1. 3 Not Available [facility] ([facility]) [address] , [place], [address], 02/10/2023 10:40:35 02/11/20 23 02/10/2023 COMP METAB OLIC PANEL glomerular filtration rate >60 mlper min 60- Not Available [facility] ([facility]) [address], [place], [address], 02/10/2023 10:40:35 02/11/20 23 02/10/2023 COMP METAB OLIC PANEL total protein 7.4 g/dL 6.4-8. 2 Not Available [facility] ([facility]) [address], [place], [address], 02/10/2023 10:40:35 02/11/20 23 02/10/2023 COMP METAB OLIC PANEL albumin 2.5 g/dL 3.4-5. 0 low Not Available [facility] ([facility]) [address], [place], [address], 02/10/2023 10:40:35 02/11/20 23 02/10/2023 COMP METAB OLIC PANEL globulin 4.9 Not Available [facility] ([facility]) [address], [place], [address], 02/10/2023 10:40:35 02/11/20 23 02/10/2023 COMP METAB OLIC PANEL alb/glob ratio 0.5 0.7-2 low Not Available [facility] ([facility]) [address], [place], [address], 02/10/2023 10:40:35 02/11/20 23 02/10/2023 COMP METAB OLIC PANEL calcium 8.1 mg/dL 8.5-10 .5 low Not Available [facility] ([facility]) [address] , [place], [address], 02/10/2023 10:40:35 02/11/20 23 02/10/2023 COMP METAB OLIC PANEL bilirubin total 4.00 mg/dL 0.10-1 .00 high Not Available [facility] ([facility]) [address] , [place], [address], 02/10/2023 10:40:35 02/11/20 23 02/10/2023 COMP METAB OLIC PANEL AST (SGOT) 75 U/L 0-37 high Not Available [facility] ([facility]) [address], [place], [address], 02/10/2023 10:40:35 02/11/20 23 02/10/2023 COMP METAB OLIC PANEL ALT (SGPT) 38 U/L 0-65 Not Available [facility] ([facility]) [address], [place], [address], 02/10/2023 10:40:35 02/11/20 23 02/10/2023 COMP METAB OLIC PANEL alk phosphatase 334 U/L 46-116 high Not Available [facility] ([facility]) [address], [place], [address], 02/10/2023 10:40:35 Result Notes None recorded. Procedures Surgical History Date Name Laterality Status Provider Name and Address Organization Details Recorded Time Hernia Repair completed Rafa CARLOS [facility] & [place] 2023 11:10:15 Imaging Results None recorded. Procedure [...] Updated DateTime 2023 170.18 cm 30.2 kg/m2 61315.33 g 77 /min 154/94 mm[Hg] Rafa CARLOS [facility] [place] 2023 11:23:09 Social History Question Answer Notes LastModified by Organizat ion Details LastModified Time Tobacco Smoking Status Former Smoker TERRANCE [facility] & [place] 2023 11:10:32 When Did You Quit Smoking? 6-10yearssin celastcigare tte [place] Information not available 2023 Sex: Unknown Functional Status None recorded. Mental Status None recorded. Family History Nothing Reported. Medical History No medical history recorded. Past Encounters Encounter ID Performer Location Encounter Start Date Encounter Closed Date Diagnosis/Indication Diagnosis SNOMED-CT Code Diagnosis ICD10 Code Diagnosis Note [id number] Jeffrey Chu MD [facility] Bariatric s and Adv Surg [address] [facility] [address] [place] [address] 2023 10:52:58 2023 11:57:37 Left inguinal hernia 775768051 K40.90 Umbilical hernia 9838188 07 K42.9 Health Concerns Section Related Observation LastModified by Organization Detai ls LastModified Time None Recorded Concern Status LastModified by Organization Details LastModified Time None Recorded Advance Directives Directive None Recorded Payers Insurance Date Sequence Insurance Name Policy Number Policy Mcdaniel Covered Member ID Mcdaniel Member ID Guarantor Name 2023 1 [employer] David Pop [id number] David Pop 02/12/2023 1 [employer] (POS) David Pop [id number] David Pop
--- OUTSIDE RECORDS SUMMARY | 2025-06-04 07:06 | XMS_ITS | Encounter Summary ---
Author Organization Healthcare Address [address] [place] [address] Care Team Providers Care Director Imaging Name Role Phone KaronUrban Yael CAMARA Primary Care Provider [phone] Ruma Hernández SALON ASSISTANT Unavailable [phone] Chris Medel MD Primary Care Provider [phone] Encounter Details Date Type Department Care Team (Late st Contact Info) Description 03/05/2025 Results Follow-Up [facility] [address] [facility] [address] [place] [address] Meaghan Le, RN [facility] LIVER [id number] [address] [id number] Social History Tobacco Use Types Packs/Day Years [...] How often do you attend chur or yazdanism services? More than 4 times per year [...] Score 0 03/14/2025 [facility] - [...] in the past 12 m [facility], were you homeless or living in a long term (including now)? No 02/19/2025 Utilities Answer Date Recorded In the past 12 months has th e [employer], gas, oil, or water company threatened to [...] Info) Description 06/08/2025 9:00 AM EDT Appointment [facility] Mineral Metabolism [address] [facility], [address] [place] [address] 06/08/2025 12:20 PM EDT Office Visit [facility] [address], [address] [place] [address] Moustapha Katz MD [address] [place] [address] 06/13/2025 6:45 AM EDT Clinical Support [facility] [address] [facility] [address] [place] [address] 06/13/2025 7:15 AM EDT Appointment [facility] Radiology [address], [address] [place] [address] 06/13/2025 8:00 AM EDT Office Visit [facility] [address] [facility] [address] [place] [address] Portia Maguire MD [address] [facility] [address] [place] [address] 06/13/2025 11:30 AM EDT Appointment Cardiac Imaging [address] [place] [address] 06/13/2025 2:00 PM EDT Appointment [facility] [address] [place] [address] 10/03/2025 12:45 PM EST Office Visit Medical Office Building Urology [address] [facility], [address] [place] [address] Suhail Brock MD [address] [facility] [address] [place] [address] documented as of this encounter Visit Diagnoses [...] documented as of this encounter Care Teams Director Imaging Relationship Specialty Start Date End Date Urban Brantley DO [address] [place] [address] PCP - General 07/30/23 03/13/25 Chris Medel MD [address] [place] [address] PCP - General 03/14/25 Ruma Hernández APRN [address] [place] [address] [address] [place] [address] Referring Physician Gastroenterology 07/30/23 documented as of this encounter
--- OUTSIDE RECORDS SUMMARY | 2025-06-04 07:06 | XMS_ITS ---
Author Organization [facility] Address [address] 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
--- OUTSIDE RECORDS SUMMARY | 2025-06-04 07:07 | XMS_ITS | Encounter Summary ---
Author Organization Healthcare Address [address] [place] [address] Care Team Providers Care Cooler Servicer Name Role Phone Ruma Hernández [employer] Unavailable [phone] Chris Medel MD Primary Care Provider [phone] Encounter Details Date Type Department Care Team (Late st Contact Info) Description 05/22/2025 Telephone [facility] [address] [facility] [address] [place] [address] Meaghan Le, RN HOSPITAL LIVER [id number] [address] [id number] Social History Tobacco Use Types Packs/Day Years [...] you attend [facility] or nondenominational services? More than 4 times per year 02/19/2025 Do you belong to any clubs o r organizations such as rastafari groups, unions, fraternal or athletic groups, or [...] any time in the past 12 m [facility], were you homeless or living [...] Metabolism [address], [address] [place] [address] 06/08/2025 12:20 PM EDT Office Visit [facility] Mineral Metabolism [address] [facility], [address] [place] [address] Moustapha Katz MD [address] [facility] [address] [place] [address] 06/13/2025 6:45 AM EDT Clinical Support [facility] [place] [address] [facility] [address] [place] [address] 06/13/2025 7:15 AM EDT Appointment [facility] Radiology [address], [address] [place] [address] 06/13/2025 8:00 AM EDT Office Visit [facility] [place] [address] [facility] [address] [place] [address] Portia Maguire MD [address] [facility] [address] [place] [address] 06/13/2025 11:30 AM EDT Appointment Cardiac Imaging [address] [place] [address] 06/13/2025 2:00 PM EDT Appointment [facility] [address] [place] [address] 10/03/2025 12:45 PM EST Office Visit Medical Office Building Urology [address] [facility], [address] [place] [address] Suhail Brock MD [address] [facility] [address] [place] [address] Scheduled Orders Name Type Priority [...] documented as of this encounter Care Teams Cooler Servicer Relationship Specialty Start Date End Date Chris Medel MD [address] [place] [address] PCP - General 03/14/25 Ruma Hernández APRN [address] [place] [address] Referring Physician Gastroenterology 07/30/23 documented as of this encounter
--- OUTSIDE RECORDS SUMMARY | 2025-06-04 07:07 | XMS_ITS | Encounter Summary ---
Author Organization Healthcare Address [address] [place] [address] Care Team Providers Care Clutch Operator Name Role Phone Urban Brantley DO Primary Care Provider [phone] Ruma Hernández ROOF FIXER Unavailable [phone] Chris Medel MD Primary Care Provider [phone] Encounter Details Date Type Department Care Team (Late Contact Info) Description 12/30/2023 Orders Only External Location [address] [place] [address] Urban Stafford MD [address] [facility] [address] [place] [address] Social History Tobacco Use Types Packs/Day [...] 06/08/2025 9:00 AM EDT Appointment [facility] [address] [facility], [address] [place] [address] 06/08/2025 12:20 PM EDT Office Visit [facility] [address] [facility], [address] [place] [address] Moustapha Katz MD [address] [facility] [address] [place] [address] 06/13/2025 6:45 AM EDT Clinical Support [facility] [address] [facility] [address] [place] [address] 06/13/2025 7:15 AM EDT Appointment [facility] Radiology [address] [place] [address] 06/13/2025 8:00 AM EDT Office Visit [facility] Center [address] [facility] [address] [place] [address] Portia Maguire MD [address] [facility] [address] [place] [address] 06/13/2025 11:30 AM EDT Appointment Cardiac Imaging [address] [place] [address] 06/13/2025 2:00 PM EDT Appointment [facility] [address] [place] [address] 10/03/2025 12:45 PM EST Office Visit Medical Office Building Urology [address] [facility], [address] [place] [address] Suhail Brock MD [address] [facility] [address] [place] [address] documented as of this encounter [...] documented as of this encounter Care Teams Clutch Operator Relationship Specialty Start Date End Date Urban Brantley DO [address] [place], [place] [phone] PCP - General 07/30/23 03/13/25 Chris Medel MD [address] [place] [address] PCP - General 03/14/25 Ruma Hernández APRN [address] [place] [address] Referring Physician Gastroenterology 07/30/23 documented as of this encounter
[2025-06-04 07:57] LABS: Activated Partial Thrombo Time 40.6 seconds (22.8-30.6); INR 1.80 (0.9-1.1); Prothrombin Time 19.1 seconds (10.1-12.5)
[2025-06-04 08:00] LABS: White Blood Count 3.8 K/mm3 (4.8-10.8)
[2025-06-04 08:01] LABS: Hematocrit 33.6 % (42.0-52.0); Hemoglobin 11.0 g/dL (14.1-18.0); Mean Corpuscular HGB Conc 32.7 g/dL (31.8-35.4); Mean Corpuscular Hemoglobin 33.2 pg (27.0-31.2); Mean Corpuscular Volume 101.5 fl (80-94); Nucleated Red Blood Cells % 0 %; Platelet Count 57 K/mm3 (142-424); Red Blood Count 3.31 M/mm3 (4.60-6.20); Red Cell Distribution Width-SD 65.4 fL
[2025-06-04 09:45] LABS: Alanine Aminotransferase 32 U/L (12-78); Albumin Level 2.0 g/dl (3.5-5.0); Albumin/Globulin Ratio 0.5 (1.1-1.8); Alkaline Phosphatase 240 U/L (38-126); Anion Gap 2.6 mEq/L (5-15); Aspartate Amino Transferase 56 U/L (17-59); Bilirubin,Total 5.8 mg/dl (0.2-1.3); Blood Urea Nitrogen 8 mg/dl (9-20); Calcium 8.2 mg/dl (8.4-10.2); Carbon Dioxide 26 mmol/L (22.0-30.0); Chloride 112 mmol/L (98-107); Creatinine,Serum 0.80 mg/dl (0.66-1.25); Estimated Glomerular Filt Rate 97 ml/min (>60); GFR (African American) 118 ML/MIN (>60); Globulin 3.9 g/dL (1.3-3.2); Glucose 86 mg/dl (74-100); Potassium 3.6 mmoL/L (3.5-5.1); Sodium 137 mmol/L (136-145); Total Protein,Serum 5.9 g/dl (6.3-8.2)
[2025-06-04 09:45] LABS: Albumin Level 2.0 g/dl (3.5-5.0); Alkaline Phosphatase 239 U/L (38-126); Anion Gap 2.6 mEq/L (5-15); Blood Urea Nitrogen 9 mg/dl (9-20); Calcium 8.1 mg/dl (8.4-10.2); Carbon Dioxide 27 mmol/L (22.0-30.0); Chloride 111 mmol/L (98-107); Creatinine,Serum 0.80 mg/dl (0.66-1.25); Estimated Glomerular Filt Rate 97 ml/min (>60); GFR (African American) 118 ML/MIN (>60); Glucose 87 mg/dl (74-100); Phosphorous 3.7 mg/dl (2.5-4.5); Potassium 3.6 mmoL/L (3.5-5.1); Sodium 137 mmol/L (136-145)
[2025-06-04 11:25] LABS: 25-OH Vitamin D, Total 42.4 ng/mL (30-100)
[2025-06-08 15:24] LABS: Serial Monitoring PDF SCANNED IMAGE
== END 2025-06-04 23:59 | disposition home or self-care (01) ==
LOC: LAB 07:04
PROVIDERS: Physician Assistant; PCP Family Medicine; Visit Provider Internal Medicine Gastroenterology
DX: K72.90 Hepatic failure, unspecified without coma (principal); M81.8 Other osteoporosis without current pathological fracture
CPT/HCPCS: 36415; 80053; 80069; 82306; 84075; 84080; 85027; 85610; 85730

== ENCOUNTER 2025-06-18 09:23 | Outpatient (CLI) | payer BC, SELFPAY ==
--- OUTSIDE RECORDS SUMMARY | 2023-08-27 08:34 | XMS_ITS | Encounter Summary ---
[facility] [address] [place] [address] Care Team Providers Care Privacy Specialist Name Role Phone Karon Urban Jc DO Primary Care Provider +1 -[phone] Encounter Details Date Type Department Care Team (Late st Contact Info) Description 08/27/2023 8:34 AM EDT Hospital Encounter [facility] PULMONARY & CRITICAL CARE MEDICINE [address] [place] [phone] Social History Tobacco Use Types Packs/Day [...] on filedocumented in this encounter Care Teams Privacy Specialist Relationship Specialty Start Date End Date Urban Brantley DO [address] [place] [address] [place] [address] PCP - General Internal Medicine 03/22/23 documented as of this encounter
--- OUTSIDE RECORDS SUMMARY | 2025-06-08 08:35 | XMS_ITS | Encounter Summary ---
Author Organization Healthcare Address [address] [place] [address] Care Team Providers Care Bill Clerk Name Role Phone Ruma Hernández MARKET RELATIONSHIP MANAGER Unavailable [phone] Chris Medel MD Primary Care Provider [phone] Encounter Details Date Type Department Care Team (Latest Contact Info) Description 06/08/2025 8:35 AM EDT - 06/08/2025 11:59 PM EDT Hospital Encounter [facility] [address] [facility], [address] [place] [address] Other osteoporosis without current pathological [...] How often do you attend chur or mormonism services? More than 4 times [...] Recorded Patient Health Questionnaire-2 Score 0 06/08/2025 [facility] Occupat ional Health - Occupational Stress [...] in the past 12 m [facility], were you homeless or living in a [...] 0 06/08/2025 9:04 AM EDT Mellissa Martines documented as of this encounter Medications at [...] 09/13/2024 5 ergocalciferol (Vitamin D-2) 1.25 MG (49350 UT) capsule Take 1 capsule by mouth [...] Description 07/11/2025 9:00 AM EDT Clinical Support [facility] [address] [place] [address] 07/11/2025 10:30 AM EDT Office Visit [facility] [address] [place] [address] Portia Maguire MD [address] [place] [address] 10/03/2025 12:45 PM EST Office Visit Medical Office Building Urology [address] [facility], [address] [place] [address] Suhail Brock MD [address] [place] [address] 10/18/2025 4:20 PM EST Office Visit [facility] [address] [facility], [address] [place] [address] Moustapha Katz MD [address] [facility] [address] [place] [address] documented as of this encounter Procedures Procedure Name Priority Date/Time Associated Diagnosis Comments DEXA BONE DENSITY Routine 06/08/2025 8:3 5 AM EDT Other osteoporosis without current pathological fracture documented in this encounter Results * Dexa Bone Density (06/08/2025 8:35 AM EDT) Anatomical Region Laterality Modality L-spine Radiographic Liseth ging Narrative 06/17/2025 10:07 PM EDT [facility] - [facility] [address], [place] [address] DXA Bone Densitometry Report: [06/08/2025] BMD test performed using the [employer] DXA System (analysis version: 14.10) manufactured by [employer]. REFERRING PROVIDER: Dr. Moustapha Katz MD CLINICAL [...] of change in BMD). Moustapha Katz MD IM DXA PROCEDURES Final Resul t documented in [...] documented as of this encounter Care Teams Bill Clerk Relationship Specialty Start Date End Date Chris Medel MD [address] [place] [address] PCP - General 03/14/25 Ruma Hernández APRN [address] [facility] [address] [place] [address] Referring Physician Gastroenterology 07/30/23 documented as of this encounter
--- OUTSIDE RECORDS SUMMARY | 2025-06-08 12:20 | XMS_ITS | Encounter Summary ---
Author Organization Healthcare Address [address] [place] [address] Care Team Providers Care Sales Operations Director Name Role Phone Ruma Hernández DEVELOPER PROGRAMMER ANALYST Unavailable [phone] Chris Medel MD Primary Care Provider [phone] Reason for Referral * Consultation (Routine) - Authorized Specialty Diagnoses / Procedures Referred By Gianna reyes Referred To Contact Diagnoses Age-related osteoporosis without current pathological fracture Moustapha Katz MD [address] [place] [address] [place] [phone] Phone: tel: fax: Referral ID Status Reason Start Date Expiration Date V isits Requested Visits Authorized [id number] Authorized 06/08/2025 12/08/2026 1 1 Reason for Visit * Reason Comments Follow-up Encounter Details Date Type Department Care Team ([facility] st Contact Info) Description 06/08/2025 12:20 PM EDT Office Visit [facility] [facility] [address] , [address] [place] [address] Moustapha Katz MD [address] [place] [address] Age-related osteoporosis without current pathological [...] week 02/19/2025 How often do you attend [facility] or pentecostal services? More than 4 times per year [...] Recorded Patient Health Questionnaire-2 Score 0 06/08/2025 [facility] of Occupat ional [facility] - Occupational Stress Questionnaire Answer Date Recorded [...] you homeless or living in a senior living (including now)? 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, and need for continued [...] Expiration Date: 12/12/2026 [facility] [1] Calcium, Random, Urine Standing Status: Future Expected Date: 09/17/2025 Expiration Date: 12/12/2026 [facility] [1] Creatinine, Random, Urine Standing Status: Future Expected Date: 09/17/2025 Expiration Date: 12/12/2026 [facility] [1] Osteocalcin by ECIA Standing Status: Future Expected Date: 09/17/2025 Expiration Date: 12/12/2026 [facility] [1] C-Telopeptide Standing Status: Future Expected Date: 09/17/2025 Expiration Date: 12/12/2026 [facility] [1] Renal Function Panel, Plasma Standing Status: Future Expected Date: 09/17/2025 Expiration Date: 12/12/2026 [facility] [1] Bone Specific Alkaline Phosphatase Standing Status: Future Expected Date: 09/17/2025 Expiration Date: 12/12/2026 [facility]mediate Alkaline Phosphatase Standing Status: Future Expected Date: 09/17/2025 Expiration Date: 12/12/2026 [facility]mediate PTH Panel 1 Standing Status: Future Expected Date: 09/17/2025 Expiration Date: 12/12/2026 [facility] Im[facility] Follow Up Bone Mineral Metabolism Labs [...] Description 07/11/2025 9:00 AM EDT Clinical Support [facility] [place] [address] [place] [address] 07/11/2025 10:30 AM EDT Office Visit [facility] [place] [address] [place] [address] Portia Maguire MD [address] [place] [address] 10/03/2025 12:45 PM EST Office Visit Medical Office Building Urology [address] [facility], [address] [place] [address] Suhail Brock MD [address] [place] [address] 10/18/2025 4:20 PM EST Office Visit [facility] [address] [facility], [address] [place] [address] Moustapha Katz MD [address] [facility] [address] [place] [address] Scheduled Orders Name Type Priority [...] documented as of this encounter Care Teams Sales Operations Director Relationship Specialty Start Date End Date Chris Medel MD [address] [place] [address] PCP - General 03/14/25 Ruma Hernández APRN [address] [address] Referring Physician Gastroenterology 07/30/23 documented as of this encounter
--- OUTSIDE RECORDS SUMMARY | 2025-06-13 07:05 | XMS_ITS | Encounter Summary ---
Author Organization Healthcare Address [address] [place] [address] Care Team Providers Care Expenditure Requisition Clerk Name Role Phone Ruma Hernández AIRPORT ENGINEER Unavailable [phone] Chris Medel MD Primary Care Provider [phone] Encounter Details Date Type Department Care Team (Latest Contact Info) Description 06/13/2025 7:05 AM EDT - 06/13/2025 9:55 AM EDT [facility] En[facility] [address] [place] [address] Pre-liver transplant, listed Discharge Disposition: Home or [...] Recorded Patient Health Questionnaire-2 Score 0 06/08/2025 [facility] [place] of Occupat ional Health - Occupational Stress [...] any time in the past 12 m [facility], were you homeless or living in a mcc (including now)? No 02/19/2025 CAGE ASSESSMENT Answer [...] drink first t luisa in the morning (EYE-MANAGER STORAGE) to steady your nerves or to get [...] 09/13/2024 5 ergocalciferol (Vitamin D-2) 1.25 MG (82872 UT) capsule Take 1 capsule by mouth [...] Description 07/11/2025 9:00 AM EDT Clinical Support [facility] [place] [address] [facility] [address] [place] [address] 07/11/2025 10:30 AM EDT Office Visit [facility] [place] [address] [place] [address] Portia Maguire MD [address] [facility] [address] [place] [address] 10/03/2025 12:45 PM EST Office Visit Medical Office Building Urology [address] [facility], [address] [place] [address] Suhail Brock MD [address] [place] [address] 10/18/2025 4:20 PM EST Office Visit [facility] [address], [address] [place] [address] Moustapha Katz MD [address] [place] [address] documented as of this encounter [...] signing this report, I, the attending physician, alec I have personally reviewed the images/data for [...] documented as of this encounter Care Teams Expenditure Requisition Clerk Relationship Specialty Start Date End Date Chris Medel MD [address] [place] [address] PCP - General 03/14/25 Ruma Hernández APRN [address] [facility] [address] [place] [address] Referring Physician Gastroenterology 07/30/23 documented as of this encounter
--- OUTSIDE RECORDS SUMMARY | 2025-06-13 08:00 | XMS_ITS | Encounter Summary ---
Author Organization Healthcare Address [address] [place] [address] Care Team Providers Care Hoop Coiler Name Role Phone Ruma Hernández WET SUIT GLUER Unavailable [phone] Chris Medel MD Primary Care Provider [phone] Reason for Referral * Imaging (Urgent) - Closed Specialty Diagnoses / Procedures Referred By Gianna reyes Referred To Contact Radiology Diagnoses Alcoholic cirrhosis, unspecified whether ascites present (CMS/HCC) Procedures US Liver Screen Portia Maguire MD [address] [place] [address] Phone: tel: fax: Referral ID Status Reason Start Date Expiration Date Visits Re quested Visits Authorized [id number] Closed 06/13/2025 12/13/2026 1 1 Reason for Visit * Reason Comments Pre-Liver Txp Follow-up Encounter Details Date Type Department Care Team (Late st Contact Info) Description 06/13/2025 8:00 AM EDT Office Visit [facility] [address] [facility] [address] [place] [address] Portia Maguire MD [address] [place] [address] Alcoholic cirrhosis, unspecified whether ascites present (CMS/HCC) (Primary Dx) Social History Tobacco Use Types [...] often do you attend chur ch or scientology services? More than 4 times per year 02/19/2025 Do you belong to any clubs o r organizations such as congregational groups, unions, fraternal or athletic groups, or [...] any time in the past 12 m [facility], were you homeless or living in a detention (including now)? No 02/19/2025 Humiliation, Afraid, Rape, [...] week 06/15/2025 How often do you attend [facility] or scientology services? More than 4 times per year 06/15/2025 Do you belong to any clubs o r organizations such as congregational groups, unions, fraternal or athletic groups, or [...] and heating? Not hard at all 06/15/2025 [facility] [place] of Occupat ional Health - Occupational [...] any time in the past 12 m [facility], were you homeless or living in a detention (including now)? No 06/15/2025 CAGE ASSESSMENT Answer [...] drink first t luisa in the morning (EYE-INTENSIVE CARE AMBULANCE PARAMEDIC) to steady your nerves or to get [...] 07/11/2025 9:00 AM EDT Clinical Support [facility] [place] [address] [place] [address] 07/11/2025 10:30 AM EDT Office Visit [facility] [place] [address] [facility] [address] [place] [address] Portia Maguire MD [address] [facility] [address] [place] [address] 10/03/2025 12:45 PM EST Office Visit Medical Office Building Urology [address] [facility], [address] [place] [address] Suhail Brock MD [address] [facility] [address] [place] [address] 10/18/2025 4:20 PM EST [facility] Visit [facility] [address] [facility], [address] [place] [address] Moustapha Katz MD [address] [facility] [address] [place] [address] documented as of this encounter [...] are based on Ultrasound LI-RADS version 2017. [email or web address] -[email or web address] .[email or web address] CRITICAL RESULT: No. COMMUNICATION: Per [...] recommendations are based on UltrasoundLI-RADS version 2017. [email or web address] -[email or web address] .[email or web address] CRITICAL RESULT: No. COMMUNICATION: Per [...] cirrhosis, unspecified whether ascites present (CMS/HCC)- Primary Alcoholic cirrhosis, unspecified whether ascites present (CMS/HCC) [...] documented as of this encounter Care Teams Hoop Coiler Relationship Specialty Start Date End Date Chris Medel MD [address] [place] [address] PCP - General 03/14/25 Ruma Hernández APRN [address] [facility] [address] [place] [address] Referring Physician Gastroenterology 07/30/23 documented as of this encounter
--- OUTSIDE RECORDS SUMMARY | 2025-06-13 09:56 | XMS_ITS | Encounter Summary ---
Author Organization Healthcare Address [address] [place] [address] Care Team Providers Care Magazine Grinder Loader Name Role Phone Ruma Hernández CIGARETTE AND FILTER CHIEF INSPECTOR Unavailable [phone] Chris Medel MD Primary Care Provider [phone] Reason for Referral * Imaging (Urgent) - Closed Specialty Diagnoses / Procedures Referred By Gianna reyes Referred To Contact Radiology Diagnoses Alcoholic cirrhosis, unspecified whether ascites present (CMS/HCC) Procedures US Liver Screen Portia Maguire MD [address] [address] Phone: tel: fax: Referral ID Status Reason Start Date Expiration Date Visits Re quested Visits Authorized [id number] Closed 06/13/2025 12/13/2026 1 1 Reason for Visit * Imaging (Urgent) - Closed Specialty Diagnoses / Procedures Referred By Contru reyes Referred To Contact Radiology Diagnoses Alcoholic cirrhosis, unspecified whether ascites present (CMS/HCC) Procedures US Liver Screen Portia Maguire MD [address] [address] Phone: tel: fax:[phone] Referral ID Status Reason Start Date Expiration Date Visits Re quested Visits Authorized [id number] Closed 06/13/2025 12/13/2026 1 1 Encounter Details Date Type Department Care Team (Latest Contact Info) Description 06/13/2025 9:56 AM EDT - 06/13/2025 10:35 AM EDT Hospital Encounter [facility] Radiology [address] [place] [address] Alcoholic cirrhosis, unspecified whether ascites present (CMS/HCC) [...] How often do you attend chur or sabianist services? More than 4 times per year [...] 06/08/2025 [facility]at ional [facility] - Occupational Stress Questionnaire Answer Date [...] time in the past 12 m [facility], were you homeless or living in a longterm (including now)? No 02/19/2025 CAGE ASSESSMENT Answer [...] drink first t luisa in the morning (EYE-OUTSIDE SALES CONSULTANT) to steady your nerves or to get rid of a hangover? 0 06/14/2025 CAGE Questionnaire Score 0 025 Utilities Answer Date Recorded In the past 12 months has th e [employer], gas, oil, or water [employer] threatened to shut off services in your [...] 09/13/2024 5 ergocalciferol (Vitamin D-2) 1.25 MG (25779 UT) capsule Take 1 capsule by mouth [...] Upcoming Encounters Date Type Department Care Team ([facility] Contact Info) Description 07/11/2025 9:00 AM EDT Clinical Support [facility] [address] [place] [address] 07/11/2025 10:30 AM EDT Office Visit [facility] [address] [place] [address] Portia Maguire MD [address] [place] [address] 10/03/2025 12:45 PM EST Office Visit Medical Office Building Urology [facility] [address] [facility], [address] [place] [address] Suhail Brock MD [address] [place] [address] 10/18/2025 4:20 PM EST Office Visit [facility] [address] [facility], [address] [place] [address] Moustapha Katz MD [address] [place] [address] documented as of this encounter [...] are based on Ultrasound LI-RADS version 2017. [email or web address]-Algorithm-Portrait -2017 .pdf CRITICAL RESULT: No. COMMUNICATION: Per [...] recommendations are based on UltrasoundLI-RADS version 2017. [email or web address]-Algorithm-Portrait -2017 .pdf CRITICAL RESULT: No. COMMUNICATION: Per this written report. By electronically signing this report, I, the attending physician, attestthat I have personally reviewed the images/data for the aboveexamination(s) and agree with the final edited report. Drafted by Tye Kenney MD on 06/13/2025 2:04 PM Final report signed by Arturo Wasserman MD on 06/13/2025 2:49 PM Portia Maguire MD [facility] PROCEDURES Final R esult documented in this [...] documented as of this encounter Care Teams Magazine Grinder Loader Relationship Specialty Start Date End Date Chris Medel MD [address] [place] [address] PCP - General 03/14/25 Ruma Hernández APRN 17[address] [facility] 202 [place] [address] Referring Physician Gastroenterology 07/30/23 documented as of this encounter
--- OUTSIDE RECORDS SUMMARY | 2025-06-13 10:36 | XMS_ITS | Encounter Summary ---
Author Organization Healthcare Address [address] [place] [address] Care Team Providers Care Delicatessen Slicer Name Role Phone Ruma Hernández MACARONI PRESS OPERATOR Unavailable [phone] Chris Medel MD Primary Care Provider [phone] Reason for Referral * Imaging (Routine) - Closed Specialty Diagnoses / Procedures Referred By Gianna t Referred To Contact Cardiology Diagnoses Pre-liver transplant, listed Procedures Echo, Adult Transthoracic (TTE) Complete Zarina Moore PA [address] [address] Phone: tel: fax: Referral ID Status Reason Start Date Expiration Date V isits Requested Visits Authorized [id number] Closed Perform Procedure 03/22/2025 09/21/2026 1 1 Reason for Visit * Imaging (Routine) - Closed Specialty Diagnoses / Procedures Referred By Contac t Referred To Contact Cardiology Diagnoses Pre-liver transplant, listed Procedures Echo, Adult Transthoracic (TTE) Complete Zarina Moore PA [address] [address] Phone: tel: fax: Referral ID Status Reason Start Date Expiration Date V isits Requested Visits Authorized [id number] Closed Perform Procedure 03/22/2025 09/21/2026 1 1 Encounter Details Date Type Department Care Team (Latest Contact Info) Description 06/13/2025 10:36 AM EDT - 06/13/2025 12:56 PM EDT Hospital Encounter Cardiac Imaging [address] [place] [address] Pre-liver transplant, listed Discharge Disposition: Home or [...] often do you attend chur ch or worship services? More than 4 times per year 02/19/2025 Do you belong to any clubs o r organizations such as sabianist groups, unions, fraternal or athletic groups, or [...] Recorded Patient Health Questionnaire-2 Score 0 06/08/2025 [facility] of Occupat ional [facility] - Occupational Stress Questionnaire Answer Date [...] any time in the past 12 m [facility], were you homeless or living in a [place] [facility] [place] facility (including now)? No 02/19/2025 CAGE ASSESSMENT Answer [...] drink first t luisa in the morning (EYE-CUSTOMS AGENT) to steady your nerves or to get rid of a hangover? 0 06/14/2025 CAGE Questionnaire Score 0 025 Utilities Answer Date Recorded In the past 12 months has th [employer], gas, oil, or water [employer] threatened to shut off services in your [...] 09/13/2024 5 ergocalciferol (Vitamin D-2) 1.25 MG (20085 UT) capsule Take 1 capsule by mouth [...] Upcoming Encounters Date Type Department Care Team ([facility] Contact Info) Description 07/11/2025 9:00 AM EDT Clinical Support [facility] [address] [place] [address] 07/11/2025 10:30 AM EDT Office Visit [facility] [place] [address] [place] [address] Portia Maguire MD [address] [place] [address] 10/03/2025 12:45 PM EST Office Visit Medical Office Building Urology [facility] [address] [facility], [address] [place] [address] Suhail Brock MD [address] [place] [address] 10/18/2025 4:20 PM EST Office Visit Professional [employer] [place] [facility] Mineral Metabolism [address] [facility], [address] [place] [address] Moustapha Katz MD [address] [place] [address] documented as of this encounter [...] documented as of this encounter Care Teams Delicatessen Slicer Relationship Specialty Start Date End Date Chris Medel MD [address] [place] [address] PCP - General 03/14/25 Ruma Hernández APRN [address] [facility] [address] [place] [address] Referring Physician Gastroenterology 07/30/23 documented as of this encounter
--- OUTSIDE RECORDS SUMMARY | 2025-06-13 12:57 | XMS_ITS | Encounter Summary ---
Author Organization Healthcare Address [address] [place] [address] Care Team Providers Care Mexican Food Cook Name Role Phone Ruma Hernández CAMERA TECHNICIAN Unavailable [phone] Chris Medel MD Primary Care Provider [phone] Reason for Referral * Imaging (Routine) - Closed Specialty Diagnoses / Procedures Referred By Gianna reyes Referred To Contact Radiology Diagnoses Pre-liver transplant, listed Procedures CT Angio Cardiac Coronary Arteries Zarina Moore PA [address] [address] Phone: tel: fax: Referral ID Status Reason Start Date Expiration Date Visits Re quested Visits Authorized [id number] Closed 03/22/2025 09/21/2026 1 1 Reason for Visit * Imaging (Routine) - Closed Specialty Diagnoses / Procedures Referred By Gianna reyes Referred To Contact Radiology Diagnoses Pre-liver transplant, listed Procedures CT Angio Cardiac Coronary Arteries Zarina Moore PA [address] [address] Phone: tel: fax: Referral ID Status Reason Start Date Expiration Date Visits Re quested Visits Authorized [id number] Closed 03/22/2025 09/21/2026 1 1 Encounter Details Date Type Department Care Team (Latest Contact Info) Description 06/13/2025 12:57 PM EDT - 06/13/2025 11:59 PM EDT Hospital Encounter [facility] [address] [place] [address] Chris Knott RN CH-TARIK Richard 5 T2 [...] week 02/19/2025 How often do you attend [facility] or judaism services? More than 4 times [...] Recorded Patient Health Questionnaire-2 Score 0 06/08/2025 [facility] - [...] time in the past 12 m [facility], were you homeless or living in a correction (including now)? No 02/19/2025 CAGE ASSESSMENT Answer [...] drink first t luisa in the morning (EYE-SKEIN MERCERIZING MACHINE OPERATOR) to steady your nerves or to get rid of a hangover? 0 06/14/2025 CAGE Questionnaire Score 0 025 Utilities Answer Date Recorded In the past 12 months has th [employer], gas, oil, or water [employer] threatened to shut off services in your [...] 09/13/2024 5 ergocalciferol (Vitamin D-2) 1.25 MG (97870 UT) capsule Take 1 capsule by mouth [...] from the original note were not included. 73288 Understanding coronary computed tomography angiography (CCTA) Coronary [...] site Last Reviewed Date: 2024 00:00:00 ?? 0742-6866 The [employer]. All rights reserved. This information is not intended as a substitute for professional medical care. Always follow your healthcare professional's instructions. documented in this encounter Plan of Treatment Upcoming Encounters Date Type Department Care Team ([facility] Contact Info) Description 07/11/2025 9:00 AM EDT Clinical Support [facility] [address] [place] [address] 07/11/2025 10:30 AM EDT Office Visit [facility] [address] [place] [address] Portia Maguire MD [address] [place] [address] 10/03/2025 12:45 PM EST Office Visit Medical Office Building Urology [address] [facility], [address] [place] [address] Suhail Brock MD [address] [place] [address] 10/18/2025 4:20 PM EST Office Visit [employer] [address], [address] [place] [address] Moustapha Katz MD [address] [place] [address] documented as of this encounter [...] source 192 MDCT scanner (Somatom Force, Siemens [employer] Systems) was used for data acquisition. A [...] documented as of this encounter Care Teams Mexican Food Cook Relationship Specialty Start Date End Date Chris Medel MD [address] [place] [address] PCP - General 03/14/25 Ruma Hernández APRN [address] [place] [address] Referring Physician Gastroenterology 07/30/23 documented as of this encounter
--- OUTSIDE RECORDS SUMMARY | 2025-06-14 15:47 | XMS_ITS | Encounter Summary ---
Author Organization Healthcare Address [address] [place] [address] Care Team Providers Care Soil Science Professor Name Role Phone Ruma Hernández PAVING INSPECTOR Unavailable [phone] Chris Medel MD Primary Care Provider [phone] Reason for Visit * Auth/Cert (Routine) Specialty Diagnoses / Procedures Referred By Contru t Referred To Contact Diagnoses Transplant Luis Angel Bee MD [address] [address] Phone: tel: fax: [facility] Inpatient [address] [place] [address] Phone: tel: Referral ID Status Reason Start Date Expiration Date Visits Re quested Visits Authorized [id number] 1 1 Encounter Details Date Type Department Care Team (Late st Contact Info) Description 06/14/2025 3:47 PM EDT - 06/15/2025 6:14 PM EDT Hospital Encounter [facility] Inpatient [address] [place] [address] Luis Angel Bee MD [address] [address] Alcoholic cirrhosis, unspecified whether ascites present (CMS/HCC) (Primary Dx) Discharge Disposition: Home or Self Care Social [...] often do you attend chur ch or quaker services? More than 4 times per year 02/19/2025 Do you belong to any clubs o r organizations such as islam groups, unions, fraternal or athletic groups, or [...] week 06/15/2025 How often do you attend [facility] or qu[facility] services? 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 nerves or [...] Sign Reading Time Taken Comments Blood Pressure 117/69 06/15/2025 3:33 PM EDT Pulse 73 06/15/2025 3:33 PM EDT Temperature 37.5 C (99.5 F) 06/15/2025 3:33 PM EDT Respiratory Rate 16 06/15/2025 3:33 PM EDT Oxygen Saturation 96% 06/15/2025 3:33 PM EDT Inhaled Oxygen Concentration - - Weight 103 kg (227 lb 4.7 oz) 06/14/2025 5:00 PM EDT Height 167.6 cm (5' 6 ) 06/14/2025 5:00 PM EDT Body Mass Index 36.69 06/14/2025 5:00 PM EDT documented in this encounter Functional [...] Chapito Jarrett documented as of this encounter Discharge Instructions * Discharge Instructions* Rebeca Andres MD - 06/15/2025 4:55 PM EDT Date of Admission 06/14/2025 Date of Discharge: 06/15/2025 Admitting Provider Luis Angel Bee MD Discharge Provider: Luis Angel Bee MD Discharge Disposition: Home or Self Care Discharge Diagnosis: Alcoholic cirrhosis, unspecified whether ascites present (CMS/HCC) Principal Problem: Alcoholic cirrhosis, unspecified whether ascites present (CMS/HCC) Discharge Diet: Regular Diet Continue regular diet at home. Continue all home medications. Continue to follow up with all providers as regularly scheduled. Discharge Medications: Home Medications TAKE these medications calcitriol 0.25 MCG capsule Take 1 capsule by mouth daily. Take 1 capsule daily only on 5 days in the week ( Wednesday to Wednesday only) Commonly known as: Rocaltrol CALTRATE 600 PLUS-VIT D PO Take 600 mg by mouth 2 times a day. carvedilol 3.125 MG tablet Take 1 tablet (3.125 mg) by mouth 2 (two) times a day with meals. Commonly known as: Coreg ergocalciferol 1.25 MG (87888 UT) capsule Take 1 capsule by mouth 1 (one) time per week. Commonly known as: Vitamin D-2 furosemide 20 MG tablet Take 2 tablets by mouth daily. Commonly known as: Lasix omeprazole [address] capsule Take 2 capsules by mouth daily. Commonly known as: PriLOSEC spironolactone 50 MG tablet Take 2 tablets by mouth daily. Commonly known as: Aldactone Xifaxan 550 MG tablet Take 1 tablet by mouth 2 times a day. Generic drug: rifAXIMin Follow-up Future Appointments Date Time Provider Department Center 07/11/2025 9:00 AM TRANSPL[facility] 07/11/2025 10:30 AM Portia Maguire MD [facility] 10/03/2025 12:45 PM Suhail Brock MD [facility] 10/18/2025 4:20 PM Moustapha Katz MD [facility] documented in this encounter Medications at Time [...] 09/13/2024 5 ergocalciferol (Vitamin D-2) 1.25 MG (20215 UT) capsule Take 1 capsule by mouth [...] as of this encounter Miscellaneous Notes * Nursing Note - Sera Kitchen - 06/15/2025 6:05 PM EDT Discharge instructions, meds and follow up appointments reviewed with patient. * Hospital Course - Rebeca Andres MD - 06/15/2025 5:02 PM EDT David Serrano is a 65 yo M who was admitted to [facility] on 06/14 for possible liver transplant. Pre-operative liver transplant work up was initiated however, the donor did not and transplant was subsequently canceled. At the time of discharge, the patient was voiding without difficulty. Thepatient's mobility/activity was appropriate for his current condition. z * Progress Notes - Rekha Us, PharmD - 06/15/2025 12:29 PM EDT Images from the original note were not included. Pharmacy Consult - Medication History Note HPI: Tanner Serrano is a 65 y.o. male admitted for Alcoholic cirrhosis, unspecified whether ascites present (CMS/HCC). Allergies: Lisinopril Home Medications Prior to Admission Medications Prescriptions Last Dose Informant Patient Reported? Taking? Calcium-Vitamin D (CALTRATE 600 PLUS-VIT D PO) 06/14/2025 Yes Yes Sig: Take 600 mg by mouth 2 times a day. Xifaxan 550 MG tablet 06/14/2025 Yes Yes Sig: Take 1 tablet by mouth 2 times a day. calcitriol (Rocaltrol) 0.25 MCG capsule Not Taking No No Sig: Take 1 capsule by mouth daily. Take 1 capsule daily only on 5 days in the week ( Wednesday to Wednesday only) Patient not taking: Reported on 06/15/2025 Note (06/15/2025): Not started carvedilol (Coreg) 3.125 MG tablet 06/13/2025 No No Sig: Take 1 tablet (3.125 mg) by mouth 2 (two) times a day with meals. Patient not taking: Reported on 06/15/2025 Note (06/15/2025): On hold since 06/13 ergocalciferol (Vitamin D-2) 1.25 MG (50780 UT) capsule 06/08/2025 No Yes Sig: Take 1 capsule by mouth 1 (one) time per week. furosemide (Lasix) 20 MG tablet 06/14/2025 No Yes Sig: Take 2 tablets by mouth daily. omeprazole (PriLOSEC) [address] capsule Past Week No Yes Sig: Take 2 capsules by mouth daily. spironolactone (Aldactone) 50 MG tablet 06/14/2025 No Yes Sig: Take 2 tablets by mouth daily. Facility-Administered Medications: None Patients Preferred Pharmacy* [facility] - [place], [place] - [address] [facility] [address] [facility] [address] [facility] [id number] *May default to [facility] if patient is enrolled to [id number] Service. Pharmacy Benefits DAVID SERRANO BB [id number] ([facility]) Covered: <b>Retail</b>, <b>Mail Order</b>, Specialty Unknown: Long- Term Care BIN: [id number] : 1960 Group ID: [id number] PCN: [id number] Legal sex: M Group name: [employer] Address: [address] [place] [address] [address] [id number] Additional Comments: DIRECTOR OF SCOUT WORK list has been updated to align with information found in ss, from home pharmacy, and bedside interview with pt. No medications were added or removed from list. Calcitriol is a new medication which has not been started this week. Fill history supports compliance. Carvediololwas put on hold at appt this week due to low bp, last dose was on 06/13/25. Pt will need thermometerpost txp. Pt is enrolled in M2B, allergies verified, and pt enrolled in M2b. Follow up as needed. Interaction Documentation [x] I have reviewed the medication information documented within the Healthcare system and Sure[facility]. I have reviewed/called the patients home pharmacy to compare discrepancies discovered from review of surescripts, pts chart, documented disease states, and relative information. Notes: [x] Pt allergies and reactions documented within Healthcare system have been reviewed, or updated, appropriately after discussion with patient. Notes: Colette Zamudio CPhT 06/15/2025 12:20 PM I agree with the information documented above. All student/management internship notes from collection of information has been reviewed. Medications match pt indications and PMHx. * Progress Notes - Dear, Lisa Conley RN - 06/15/2025 9:03 AM EDT Case Management Adult Initial Progress Note David Serrano 65 y.o. male CSN: [id number] Admission: 06/14/2025 3:47 PM Primary Problem: Alcoholic cirrhosis, unspecified whether ascites present (CMS/HCC) Deck Steward reviewed chart and spoke with patient to complete this Initial Case Management Assessment. PCP: Chris Medel MD Emergency Contact: Extended Emergency Contact Information Primary Emergency Contact: Stacy Serrano Address: [address] [place] [address] [place] [address] [facility] Mobile Relation: Spouse Preferred language: Lithuanian Scroll Machine Operator needed? No Secondary Emergency Contact: Lan Serrano Mobile Relation: Son Preferred language: Lithuanian Scroll Machine Operator needed? No Insurance: Primary Visit Coverage Payer Plan Sponsor Code Group Number Group Name NANCY SIMON/[facility]ANCE [facility] [id number] Primary Visit Coverage Subscriber Subscriber ID Subscriber Name Subscriber SSN Subscriber Address [id number] DAVID SERRANO [id number] [place] [address] [address] [place] [address] Patient information: Floresita Arredondoford - [phone] = Secondary Emergency Contact. Pt admitted for liver transplant. Daily Living Activities: Pt awakens early around 6AM. Pt does not sleep well at night. Pt falls asleep quickly but awakens during night 2-4 times during night. Pt does not have restless legs but does have edema up to knee. Does not have ascites after taking diuretics. Pt has not had paracentesis. Pt states he can mow yard with riding mower. Fatigues early. Gait is slower. Does not use DME. Pt can walk up flight of steps. [address] [place] [address] Current DME: No DME in use. Income Information: Greater than 115 K per month. 2 in household. Housing Circumstances-Z Codes: Private home with 1 SCOTT. Single story home. [place]. Patient Referred to: Pt would agree to [facility] referral if recommended. Anticipated Discharge Date: TBD Patient's Discharge Goal: HWA Assistance Available at Discharge: = primary care Secondary care givers = friend/ neighbors Discharge Transport: Follow Up Transport: Home Health / Home Infusion / Outpatient Dialysis Services: No history of home health. No history of home infusion. No history of dialysis. Living Will/Advance Directive/Power of Rn Transitional Care /Guardian: Unable to assess: No Have you reviewed your Advance Directive and is it valid for this stay?: Yes Advance Directive: Patient has advance directive, copy not in chart Advance Directive not in Chart: Copy requested from family (pt states they will call giver) Information Provided on Healthcare Directives: Yes Pre-existing DNR/DNI Order: No Patient Requests Assistance: No Additional Comments: Pt wears hearing aids. HS degree. Lisa Salmonr, RN * Care Plan - Sera Kitchen - 06/15/2025 8:28 AM EDT Problem: Liver Transplant Goal: Absence of Bleeding Outcome: Met Intervention: Monitor and Manage Bleeding Flowsheets (Taken 06/15/2025819) Bleeding Precautions: blood pressure closely monitored Problem: Liver Failure Goal: Absence of Bleeding Outcome: Met Problem: Liver Transplant Goal: Effective Organ Function Outcome: Unable to Meet, Plan Revised Intervention: Support Donor Organ Function Flowsheets (Taken 06/15/2025819) Stabilization Measures: legs elevated fluid resuscitation initiated Problem: Adult Inpatient Plan of Care Goal: Plan of Care Review Outcome: Ongoing, Progressing Flowsheets (Taken 06/15/2025819) Outcome Evaluation: Patient agrees with plan of care. Plan of Care Reviewed With: patient spouse Goal: Patient-Specific Goal (Individualized) Outcome: Ongoing, Progressing Flowsheets (Taken 06/15/2025799) Patient/Family-Specific Goals (Include Timeframe): Patient will be satisfied with communication from interdisciplinary team and agree with plan of care. Individualized Care Needs: Communicate any updates from transplant team with patient and . Anxieties, Fears or Concerns: Anticipating liver transplant. Goal: Absence of Hospital-Acquired Illness or Injury Outcome: Ongoing, Progressing Intervention: Identify and Manage Fall Risk Flowsheets (Taken 06/15/2025799) Safety Promotion/Fall Prevention: clutter-free environment maintained lighting adjusted nonskid shoes/slippers when out of bed room organization consistent toileting scheduled Goal: Optimal Comfort and Wellbeing Outcome: Ongoing, Progressing Intervention: Monitor Pain and Promote Comfort Flowsheets (Taken 06/15/2025819) Pain Management Interventions: position adjusted relaxation techniques promoted Goal: Readiness for Transition of Care Outcome: Ongoing, Progressing Problem: Infection Goal: Absence of Infection Signs and Symptoms Outcome: Ongoing, Progressing Intervention: Prevent or Manage Infection Flowsheets Taken 06/15/2025819 Infection Management: aseptic technique maintained Fever Reduction/Comfort Measures: lightweight bedding lightweight clothing Taken 06/15/2025799 Isolation Precautions: precautions maintained protective Problem: Liver Transplant Goal: Optimal Coping with Organ Transplant Outcome: Ongoing, Progressing Intervention: Optimize Psychosocial Response Flowsheets (Taken 06/15/2025819) Supportive Measures: verbalization of feelings encouraged Family/Support System Care: self-care encouraged Goal: Effective Bowel Elimination Outcome: Ongoing, Progressing Intervention: Enhance Bowel Motility and Elimination Flowsheets (Taken 06/15/2025819) Bowel Elimination Management: toileting offered Bowel Motility Enhancement: ambulation promoted Goal: Fluid and Electrolyte Balance Outcome: Ongoing, Progressing Intervention: Monitor and Manage Fluid and Electrolyte Balance Flowsheets (Taken 06/15/2025819) Fluid/Electrolyte Management: intravenous fluid replacement initiated Goal: Optimal Functional Ability Outcome: Ongoing, Progressing Intervention: Optimize Functional Ability Flowsheets Taken 06/15/2025819 Self-Care Promotion: independence encouraged Taken 06/15/2025799 Activity Management: ambulated to bathroom sitting, edge of bed Goal: Improved Oral Intake Outcome: Ongoing, Progressing Intervention: Promote and Optimize Nutrition Intake Flowsheets (Taken 06/15/2025819) Oral Nutrition Promotion: physical activity promoted Nutrition Interventions: diet adjusted Goal: Optimal Pain Control and Function Outcome: Ongoing, Progressing Intervention: Prevent or Manage Pain Flowsheets (Taken 06/15/2025819) Pain Management Interventions: position adjusted relaxation techniques promoted Complementary Therapy: music therapy provided Diversional Activities: smartphone television Goal: Nausea and Vomiting Relief Outcome: Ongoing, Progressing Intervention: Prevent or Manage Nausea and Vomiting Flowsheets (Taken 06/15/2025819) Nausea/Vomiting Interventions: sips of clear liquids given slow deep breathing encouraged Problem: Liver Failure Goal: Optimal Coping with Liver Failure Outcome: Ongoing, Progressing Intervention: Support and Optimize Psychosocial Response Flowsheets (Taken 06/15/2025819) Supportive Measures: verbalization of feelings encouraged Diversional Activities: smartphone television Family/Support System Care: self-care encouraged Goal: Fluid and Electrolyte Balance Outcome: Ongoing, Progressing Intervention: Monitor and Manage Fluid and Electrolyte Balance Flowsheets (Taken 06/15/2025819) Fluid/Electrolyte Management: intravenous fluid replacement initiated Goal: Minimize and Manage Gastrointestinal Symptoms Outcome: Ongoing, Progressing Intervention: Monitor and Support Gastrointestinal Function Flowsheets Taken 06/15/2025819 Perineal Care: education provided Fluid/Electrolyte Management: intravenous fluid replacement initiated Nausea/Vomiting Interventions: sips of clear liquids given slow deep breathing encouraged Oral Care: education provided Taken 06/15/2025799 Isolation Precautions: precautions maintained protective Goal: Blood Glucose Level Within Target Range Outcome: Ongoing, Progressing Intervention: Optimize Glycemic Control Flowsheets (Taken 06/15/2025819) Hyperglycemia Management: blood glucose monitored Hypoglycemia Management: blood glucose monitored Goal: Hemodynamic Stability Outcome: Ongoing, Progressing Intervention: Optimize Blood Flow and Promote Renal Function Flowsheets (Taken 06/15/2025819) Stabilization Measures: legs elevated fluid resuscitation initiated Goal: Absence of Infection Signs and Symptoms Outcome: Ongoing, Progressing Intervention: Prevent or Manage Infection Flowsheets (Taken 06/15/2025819) Infection Management: aseptic technique maintained Fever Reduction/Comfort Measures: lightweight bedding lightweight clothing Goal: Optimize Neurologic Function Outcome: Ongoing, Progressing Intervention: Monitor and Optimize Neurologic Status Flowsheets Taken 06/15/2025819 Hepatic Encephalopathy Management: airway protection maintained Sensory Stimulation Regulation: quiet environment promoted television on Seizure Precautions: clutter-free environment maintained Taken 06/15/2025799 Head of Bed (HOB) Positioning: HOB elevated Goal: Improved Oral Intake Outcome: Ongoing, Progressing Intervention: Promote and Optimize Nutrition Intake Flowsheets (Taken 06/15/2025 0820) Nutrition Support Management: weight trending reviewed Oral Nutrition Promotion: physical activity promoted Nutrition Interventions: diet adjusted Goal: Optimal Pain Control, Comfort and Function Outcome: Ongoing, Progressing Intervention: Prevent or Manage Pain Flowsheets (Taken 06/15/2025 0820) Pain Management Interventions: position adjusted relaxation techniques promoted Complementary Therapy: music therapy provided Spiritual Activities Assistance: personal rituals encouraged music provided Sleep/Rest Enhancement: relaxation techniques promoted Goal: Effective Oxygenation and Ventilation Outcome: Ongoing, Progressing Intervention: Promote Airway Secretion Clearance Flowsheets Taken 06/15/2025 0820 Cough And Deep Breathing: education provided Taken 06/15/2025 0800 Activity Management: ambulated to bathroom sitting, edge of bed * Significant Event - Viv Caban MD - 06/15/2025 5:49 AM EDT Patient to OR today for liver transplant - History and physical note at admission/most recent progress note reviewed and with no changes - The risks, benefits, indications, contraindications, and surgical alternatives were explained to the patient. Specifically, the risks of surgery, including bleeding, infection, injury to nearby organs or structures, need for additional surgery or procedures, wound complications, and complicationsof general anesthesia. Commonly associated risks of the procedure where also discussed with the patient in detial. The patient participated in the discussion and was given an opportunity to ask questions. All questions where answered to the patient's verbal satisification. - Written and informed consent was then signed and is located in the patient's chart. - NPO since midnight Viv Caban MD * Care Plan - Kolby Chapito - 06/14/2025 11:06 PM EDT Problem: Adult Inpatient Plan of Care Goal: Plan of Care Review Outcome: Ongoing, Progressing Flowsheets (Taken 06/14/2025 6317) Progress: no change Outcome Evaluation: Awaiting possible liver txp Plan of Care Reviewed With: patient spouse Goal: Patient-Specific Goal (Individualized) Outcome: Ongoing, Progressing Flowsheets (Taken 06/14/20252122) Patient/Family-Specific Goals (Include Timeframe): Remain injury free during stay Individualized Care Needs: DC needs, liver transplant education and medication, PT/OT Anxieties, Fears or Concerns: Anticipating surgery Goal: Absence of Hospital-Acquired Illness or Injury Outcome: Ongoing, Progressing Intervention: Identify and Manage Fall Risk Flowsheets (Taken 06/14/20252258) Safety Promotion/Fall Prevention: activity supervised assistive device/personal items within reach clutter-free environment maintained lighting adjusted nonskid shoes/slippers when out of bed room organization consistent safety round/check completed Intervention: Prevent Skin Injury Flowsheets Taken 06/14/20252258 Skin Protection: transparent dressing maintained Taken 06/14/20252122 Body Position: weight shifting Intervention: Prevent and Manage VTE (Venous Thromboembolism) Risk Flowsheets (Taken 06/14/20251999) VTE Prevention/Management: (pt ambulates frequently) bilateral SCDs (sequential compression devices) off other (see comments) Intervention: Prevent Infection Flowsheets (Taken 06/14/20252258) Infection Prevention: hand hygiene promoted rest/sleep promoted Goal: Optimal Comfort and Wellbeing Outcome: Ongoing, Progressing Intervention: Monitor Pain and Promote Comfort Flowsheets (Taken 06/14/20252258) Pain Management Interventions: quiet environment facilitated pillow support provided emotional support Intervention: Provide Person-Centered Care Flowsheets (Taken 06/14/20252258) Trust Relationship/Rapport: care explained choices provided emotional support provided empathic listening provided questions encouraged reassurance provided thoughts/feelings acknowledged Goal: Readiness for Transition of Care Outcome: Ongoing, Progressing Intervention: Mutually Develop Transition Plan Flowsheets (Taken 06/14/20252258) Discharge Coordination/Progress: per CM and Txp team Readmission Within the Last 30 Days: no previous admission in last 30 days Problem: Infection Goal: Absence of Infection Signs and Symptoms Outcome: Ongoing, Progressing Intervention: Prevent or Manage Infection Flowsheets Taken 06/14/20252258 Infection Management: aseptic technique maintained Fever Reduction/Comfort Measures: lightweight clothing lightweight bedding Taken 06/14/20252122 Isolation Precautions: precautions maintained Problem: Liver Transplant Goal: Optimal Coping with Organ Transplant Outcome: Ongoing, Progressing Intervention: Optimize Psychosocial Response Flowsheets (Taken 06/14/20252258) Supportive Measures: active listening utilized goal-setting facilitated positive reinforcement provided self-reflection promoted verbalization of feelings encouraged Family/Support System Care: caregiver stress acknowledged involvement promoted self-care encouraged support provided Goal: Absence of Bleeding Outcome: Ongoing, Progressing Intervention: Monitor and Manage Bleeding Flowsheets (Taken 06/14/20252258) Bleeding Precautions: blood pressure closely monitored Goal: Effective Bowel Elimination Outcome: Ongoing, Progressing Intervention: Enhance Bowel Motility and Elimination Flowsheets (Taken 06/14/20252258) Bowel Elimination Management: hygiene measures promoted Bowel Motility Enhancement: ambulation promoted fluid intake encouraged oral intake encouraged Goal: Effective Organ Function Outcome: Ongoing, Progressing Intervention: Support Donor Organ Function Flowsheets (Taken 06/14/20252258) Stabilization Measures: legs elevated Goal: Fluid and Electrolyte Balance Outcome: Ongoing, Progressing Intervention: Monitor and Manage Fluid and Electrolyte Balance Flowsheets (Taken 06/14/20252258) Fluid/Electrolyte Management: fluids provided intravenous fluid replacement initiated Goal: Optimal Functional Ability Outcome: Ongoing, Progressing Intervention: Optimize Functional Ability Flowsheets Taken 06/14/20252258 Self-Care Promotion: independence encouraged Taken 06/14/20252122 Activity Management: activity adjusted per tolerance activity encouraged Goal: Improved Oral Intake Outcome: Ongoing, Progressing Intervention: Promote and Optimize Nutrition Intake Flowsheets (Taken 06/14/20252258) Oral Nutrition Promotion: physical activity promoted rest periods promoted Nutrition Interventions: meals from home/family encouraged Goal: Optimal Pain Control and Function Outcome: Ongoing, Progressing Intervention: Prevent or Manage Pain Flowsheets (Taken 06/14/20252258) Pain Management Interventions: quiet environment facilitated pillow support provided emotional support Diversional Activities: smartphone television Goal: Nausea and Vomiting Relief Outcome: Ongoing, Progressing Intervention: Prevent or Manage Nausea and Vomiting Flowsheets (Taken 06/14/20252258) Nausea/Vomiting Interventions: slow deep breathing encouraged Problem: Liver Failure Goal: Optimal Coping with Liver Failure Outcome: Ongoing, Progressing Intervention: Support and Optimize Psychosocial Response Flowsheets (Taken 06/14/20252258) Supportive Measures: active listening utilized goal-setting facilitated positive reinforcement provided self-reflection promoted verbalization of feelings encouraged Diversional Activities: smartphone television Family/Support System Care: caregiver stress acknowledged involvement promoted self-care encouraged support provided Goal: Absence of Bleeding Outcome: Ongoing, Progressing Intervention: Monitor and Manage Bleeding Flowsheets (Taken 06/14/20252258) Bleeding Precautions: blood pressure closely monitored Goal: Fluid and Electrolyte Balance Outcome: Ongoing, Progressing Intervention: Monitor and Manage Fluid and Electrolyte Balance Flowsheets (Taken 06/14/20252258) Fluid/Electrolyte Management: fluids provided intravenous fluid replacement initiated Goal: Minimize and Manage Gastrointestinal Symptoms Outcome: Ongoing, Progressing Intervention: Monitor and Support Gastrointestinal Function Flowsheets (Taken 06/14/20252258) Perineal Care: education provided Fluid/Electrolyte Management: fluids provided intravenous fluid replacement initiated Nausea/Vomiting Interventions: slow deep breathing encouraged Oral Care: teeth brushed Goal: Blood Glucose Level Within Target Range Outcome: Ongoing, Progressing Intervention: Optimize Glycemic Control Flowsheets (Taken 06/14/20252258) Hypoglycemia Management: blood glucose monitored Goal: Hemodynamic Stability Outcome: Ongoing, Progressing Intervention: Optimize Blood Flow and Promote Renal Function Flowsheets (Taken 06/14/20252258) Stabilization Measures: legs elevated Goal: Absence of Infection Signs and Symptoms Outcome: Ongoing, Progressing Intervention: Prevent or Manage Infection Flowsheets Taken 06/14/20252258 Infection Management: aseptic technique maintained Fever Reduction/Comfort Measures: lightweight clothing lightweight bedding Taken 06/14/20252122 Isolation Precautions: precautions maintained Goal: Optimize Neurologic Function Outcome: Ongoing, Progressing Intervention: Monitor and Optimize Neurologic Status Flowsheets Taken 06/14/20252258 Sensory Stimulation Regulation: lighting decreased quiet environment promoted Taken 06/14/20252122 Head of Bed (HOB) Positioning: HOB at 20-30 degrees Goal: Improved Oral Intake Outcome: Ongoing, Progressing Intervention: Promote and Optimize Nutrition Intake Flowsheets (Taken 06/14/20252258) Nutrition Support Management: weight trending reviewed Oral Nutrition Promotion: physical activity promoted rest periods promoted Nutrition Interventions: meals from home/family encouraged Goal: Optimal Pain Control, Comfort and Function Outcome: Ongoing, Progressing Intervention: Prevent or Manage Pain Flowsheets (Taken 06/14/20252258) Pain Management Interventions: quiet environment facilitated pillow support provided emotional support Spiritual Activities Assistance: personal rituals encouraged Sleep/Rest Enhancement: family presence promoted natural light exposure provided noise level reduced regular sleep/rest pattern promoted room darkened consistent schedule promoted awakenings minimized Goal: Effective Oxygenation and Ventilation Outcome: Ongoing, Progressing Intervention: Promote Airway Secretion Clearance Flowsheets Taken 06/14/20252258 Breathing Techniques/Airway Clearance: deep/controlled cough encouraged Taken 06/14/20252122 Activity Management: activity adjusted per tolerance activity encouraged Cough And Deep Breathing: done independently per patient Intervention: Optimize Oxygenation and Ventilation Flowsheets Taken 06/14/2025 2259 Airway/Ventilation Management: pulmonary hygiene promoted Taken 06/14/20252122 Head of Bed (HOB) Positioning: HOB at 20-30 degrees documented in this encounter Plan of Treatment Upcoming Encounters Date Type Department Care Team (Late st Contact Info) Description 07/11/2025 9:00 AM EDT Clinical Support [facility] [address] [facility] [address] [place] [address] 07/11/2025 10:30 AM EDT Office Visit [facility] [address] [facility] [address] [place] [address] Portia Maguire MD [address] [facility] [address] [place] [address] 10/03/2025 12:45 PM EST Office Visit Medical Office Building Urology [address], [address] [place] [address] Suhail Brock MD [address] [facility] [address] [place] [address] 10/18/2025 4:20 PM EST Office Visit [facility] [address], [address] [place] [address] Moustapha Katz MD [address] [place] [address] Pending Results Name Type Priority Associated Diagnoses Date /Time Hepatitis C Virus (HCV) Quantitative PCR Lab STAT 06/14/2025 6:31 PM EDT Prepare Leukocyte Reduced RBC: 10 Units Blood Bank Routine 06/14/2025 6:24 PM EDT Scheduled Orders Name Type Priority Associated Diagnoses Orde r Schedule Hepatitis C Virus (HCV) Quantitative PCR Lab STAT STAT (Lab) for 1 Occurrences starting 06/14/2025 until 06/14/2025 documented as of this encounter Procedures Procedure Name Priority Date/Time Associated Diagnosis Comments ECG ADULT STAT 06/15/2025 10:35 AM EDT LETICIA AURIS SURVEILLANCE BY PCR Routine 06/14/2025 6:47 PM EDT SARS COV-2/COVID-19 BY PCR - RAPID STAT 06/14/2025 6:47 PM EDT HEPATITIS B SURFACE ANTIBODY, QUANTITATIVE Routine 06/14/2025 6:31 PM EDT HIV 1/2 ANTIBODY/ANTIGEN SCREEN W/REFLEX TO HIV 1/2 ANTIBODY DIFFERENTIATION STAT 06/14/2025 6:31 PM EDT EXTRA TUBE LIGHT GREEN TOP Routine 06/14/2025 6:31 PM EDT EXTRA TUBE RED TOP Routine 06/14/2025 6: 31 PM EDT EXTRA TUBES Routine 06/14/2025 6:31 PM EDT HIV 1/2 ANTIBODY/ANTIGEN SCREEN WITH REFLEX TO HIV I/II DIFFERENTIATION STAT 06/14/2025 6:31 PM EDT HEPATITIS C ANTIBODY W/REFLEX TO HCV QUANT PCR STAT 06/14/2025 6:31 PM EDT HEPATITIS B CORE TOTAL AB (IGG AND IGM) STAT 06/14/2025 6:31 PM EDT VITAMIN D 25 HYDROXY STAT 06/14/2025 6:31 PM EDT HEPATITIS B SURFACE ANTIGEN STAT 06/14/2025 6:31 PM EDT CYTOMEGALOVIRUS ANTIBODY, IGG Add-On 06/14/2025 6:31 PM EDT APTT Routine 06/14/2025 6:31 PM EDT PROTHROMBIN TIME(PT) / INR Routine 06/14/2025 6:31 PM EDT CBC WITH AUTO DIFFERENTIAL STAT 06/14/2025 6:31 PM EDT TYPE AND SCREEN Routine 06/14/2025 6:31 PM EDT COMPREHENSIVE METABOLIC PANEL, PLASMA Routine 06/14/2025 6:31 PM EDT PREPARE RBC Routine 06/14/2025 6:24 PM EDT documented in this encounter Results * ECG Adult (06/15/2025 10:35 AM EDT) EKG DIAGNOSIS CLASS Abnormal MUSE ECG Ventricular Rate 65 BPM MUSE ECG Atrial Rate 65 BPM MUSE ECG NH Interval 162 ms MUSE ECG QRSD Interval 86 ms MUSE ECG QT Interval 446 ms MUSE ECG QTC Interval 463 ms MUSE ECG P [place] 4 degrees MUSE ECG R [place] 58 degrees MUSE ECG T Wave [place] 22 degrees MUSE ECG Diagnosis Normal sinus rhythm MUSE ECG Diagnosis Cannot rule out Anterior infarct , age undetermined MUSE ECG Diagnosis Abnormal ECG MUSE ECG Diagnosis MUSE ECG Diagnosis Confirmed by Max Gregorio ([id number]) on 06/15/2025 3:47:28 PM MUSE ECG 06/15/2025 10:3 5 AM EDT 06/15/2025 3:47 PM EDT Mary INTERIANO ECG ORDERABLES Final Result MUSE ECG * SARS CoV-2/COVID-19 by PCR - Rapid (06/14/2025 6:47 PM EDT) SARS CoV-2/COVID-1 9 RNA PCR Result Not Detected Not Detected 06/14/2025 8:35 PM EDT [facility] Swab Nasopharyngeal structure / Unknown Non-blood Collection / Unknown 06/14/2025 6:47 PM EDT 06/14/2025 7:49 PM EDT Narrative [facility] - 06/14/2025 8:35 PM EDT This test is FDA approved for use with nasopharyngeal specimens in Viral Transport Media (VTM). This test is used for clinical purposes. It should not be regarded as investigational or for research. This laboratory is certified under the Clinical Laboratory improvement Amendments of 1988 (CLIA-88 as qualified to perform high complexity clinical laboratory testing. This test was performed on the Xpert Xpress SARS CoV-2 Plus assay test, a PCR- based method. Negative results should be considered presumptive and do not preclude current or future infection obtained through community transmission or other exposures. Negative results must be considered in the context of an individual's recent exposures, history, presence of clinical signs and symptoms consistent with COVID-19. us Luis Angel Bee MD LAB MICROBIOLOGY - GENERA L ORDERABLES Final Result Performing Organization Address [facility] [place] [address] * Leticia auris Surveillance by PCR (06/14/2025 6:47 PM EDT) Pathologist [facility] Leticia auris PCR Result Not Detected Not Detected 06/18/2025 5:43 AM EDT [facility] Swab (Axilla and Groin) Non-blood Collection / Unknown 06/14/2025 6:47 PM EDT 06/14/2025 7:49 PM EDT Narrative [facility] - 06/18/2025 5:43 AM EDT This PCR assay was developed and its performance characteristics determined by [facility] as appropriate for clinical purposes. This assay has not been cleared or approved by the FDA, but is performed in a CLIA regulated laboratory that is qualified to perform high-complexity testing. us Luis Angel Bee MD LAB MICROBIOLOGY - GENERA L ORDERABLES Final Result Performing Organization Address [facility] [place] [address] * Cytomegalovirus Antibody IgG (06/14/2025 6:31 PM EDT) CMV ANTIBODY IGG <0.20 <=0.59 U/mL 06/16/2025 9:07 PM EDT [facility] ([facility]) Blood Venous blood specimen / Unknown Venipuncture / Unknown 06/14/2025 6:31 PM EDT 06/14/2025 7:05 PM EDT Narrative [facility]) - 06/16/2025 9:07 PM EDT INTERPRETIVE INFORMATION: Cytomegalovirus Antibody, IgG 0.59 U/mL or less......... Not Detected 0.6 - 0.69 U/mL........... Indeterminate-Repeat testing in 10-14 days may be helpful. 0.70 U/mL or greater...... Detected In immunocompromised patients, CMV serology (IgG or IgM antibody titers) may not be reliable and may be misleading in the diagnosis of acute or reactivation CMV disease. The preferred method for diagnosis is culture of virus and/or demonstration of viral antigen in peripheral white cells (buffy coat), bronchoalveolar lavage (BAL) cells, or tissue biopsies. This test should not be used for blood donor screening, associated re-entry protocols, or for screening Human Cell, Tissues and Cellular and Tissue-Based Products (HCT/P). The best evidence for current infection is a significant change on two appropriately timed specimens, where both tests are done in the same laboratory at the same time. Performed By: [facility] [address] [place] [address] [facility]: Balwinder Wadsworth MD, PhD CLIA Number: [id number] us Luis Angel Bee MD LAB BLOOD ORDERABLES Nadia l Result [facility]) [address] [place] [address] * Light Green Top (06/14/2025 6:31 PM EDT) Extra Hold for add-ons 06/14/2025 11:01 PM EDT [facility] Comment:Auto resulted. Blood Venous blood specimen / Unknown 06/14/2025 6:31 PM EDT 06/14/2025 8:12 PM EDT us Luis Angel Quintanaeta MD LAB BLOOD ORDERABLES Nadia l Result [facility] [address] [place] [address] * Red Top (06/14/2025 6:31 PM EDT) Pathologist [facility] Extra Hold for add-ons 06/14/2025 11:01 PM EDT [facility] Comment:Auto resulted. Blood Venous blood specimen / Unknown 06/14/2025 6:31 PM EDT 06/14/2025 8:12 PM EDT us Luis Angel Bee MD LAB BLOOD ORDERABLES Nadia l Result Performing Organization Address [facility] Co de Phone Number [facility] [address] [place] [address] * HIV 1 & 2 Antibody/Antigen Screen (06/14/2025 6:31 PM EDT) [facility] HIV 1 & 2 Antibody/Antigen Screen Non Reactive Non Reactive 06/14/2025 7:45 PM EDT [facility] Comment:Screening for HIV 1 & 2 antibodies, and P24 antigen is NONREACTIVE. No confirmatory testing is required. Blood Venous blood specimen / Unknown Venipuncture / Unknown 06/14/2025 6:31 PM EDT 06/14/2025 7:05 PM EDT Result Neto Bee MD LAB BLOOD ORDERABLES Nadia l Result Performing Organization Address [facility]/ZIP Co de Phone Number [facility] [address] [place] [address] * Hepatitis C Antibody (06/14/2025 6:31 PM EDT) [facility] Hepatitis C Antibody Negative Negative 06/14/2025 7:45 PM EDT [facility] Blood Venous blood specimen / Unknown Venipuncture / Unknown 06/14/2025 6:31 PM EDT 06/14/2025 7:05 PM EDT us Luis Angel Bee MD LAB BLOOD ORDERABLES Nadia l Result Performing Organization Address [facility] Co de Phone Number [facility] [address] [place] [address] * Hepatitis B Surface Antigen (06/14/2025 6:31 PM EDT) Hepatitis B Surf Antigen Negative Negative 06/14/2025 8:18 PM EDT [facility] Blood Venous blood specimen / Unknown Venipuncture / Unknown 06/14/2025 6:31 PM EDT 06/14/2025 7:05 PM EDT Luis Angel Bee MD LAB BLOOD ORDERABLES Nadia l Result Performing Organization Address [facility] Co de Phone Number [facility] [address] [place] [address] * (ABNORMAL) Hepatitis B Surface Antibody, Quantitative (06/14/2025 6:31 PM EDT) Pathologist [facility] Hepatitis B Surface Antibody, Quantitative 34.47(H) NonReacti ve: <8, Grayzone: 8 - <12, Reactive: >= 12 mIU/mL 06/14/2025 8:18 PM EDT [facility] Comment: Reactive. Individual is considered immune to HBV infection. Blood Venous blood specimen / Unknown Venipuncture / Unknown 06/14/2025 6:31 PM EDT 06/14/2025 7:05 PM EDT us Luis Angel Bee MD LAB BLOOD ORDERABLES Nadia l Result Performing Organization Address [facility]/ZIP Co de Phone Number [facility] [address] [place] [address] * Hepatitis B Core Total Antibody IgG,IgM (06/14/2025 6:31 PM EDT) Hepatitis B Core Total Antibody IgG,IgM Negative Negative 06/14/2025 8:18 PM EDT [facility] Blood Venous blood specimen / Unknown Venipuncture / Unknown 06/14/2025 6:31 PM EDT 06/14/2025 7:05 PM EDT Luis Angel Bee MD LAB BLOOD ORDERABLES Nadia l Result Performing Organization Address [facility]/ZIP Co de Phone Number [facility] [address] [place] [address] * (ABNORMAL) Vitamin D 25 Hydroxy (06/14/2025 6:31 PM EDT) Vitamin D 25 Hydroxy 10.8(L) 20.0 - 80.0 ng/mL 06/14/2025 8:19 PM EDT [facility] Blood Venous blood specimen / Unknown Venipuncture / Unknown 06/14/2025 6:31 PM EDT 06/14/2025 7:05 PM EDT Narrative [facility] - 06/14/2025 8:19 PM EDT Testing performed on [employer], standardized against NIST SRM 2972. When testing samples from patients whose predominant form of vitamin D is vitamin D2, such as patients receiving vitamin D2 supplementation, results that are subtherapeutic should be confirmed with another method, such as LC-MS/MS, before being used for patient management. Vitamin D, 25-Hydroxy reference range, age 18 years and up: Deficiency: <12 ng/mL Insufficiency: 12 to 19 ng/mL Sufficiency: 20 to 80 ng/mL Possible toxicity: >100 ng/mL us Luis Angel Bee MD LAB BLOOD ORDERABLES Nadia l Result Performing Organization Address [facility]/ZIP Co de Phone Number [facility] [address] [place] [address] * (ABNORMAL) CBC and Differential (06/14/2025 6:31 PM EDT) WBC Count 7.95 3.70 - 10.30 10*3/uL LAB HEMATOLOGY METHOD 06/14/2025 7:24 PM EDT [facility] RBC Count 2.90(L) 4.60 - 6.10 10*6/uL LAB HEMATOLOGY METHOD 06/14/2025 7:24 PM EDT [facility] HGB 10.1(L) 13.7 - 17.5 g/dL LAB HEMATOLOGY METHOD 06/14/2025 7:24 PM EDT [facility] HCT 29.7(L) 40.0 - 51.0 % LAB HEMATOLOGY METHOD 06/14/2025 7:24 PM EDT [facility] Platelet Count 56(L) 155 - 369 10*3/uL LAB HEMATOLOGY METHOD 06/14/2025 7:24 PM EDT [facility] MCV 102(H) 79 - 98 fL LAB HEMATOLOGY METHOD 06/14/2025 7:24 PM EDT [facility] MCH 34.8(H) 26.0 - 32.0 pg LAB HEMATOLOGY METHOD 06/14/2025 7:24 PM EDT [facility] MCHC 34.0 30.7 - 35.5 g/dL LAB HEMATOLOGY METHOD 06/14/2025 7:24 PM EDT [facility] RDW 16.9(H) 11.5 - 14.5 % LAB HEMATOLOGY METHOD 06/14/2025 7:24 PM EDT [facility] MPV 11.5 8.8 - 12.5 fL LAB HEMATOLOGY METHOD 06/14/2025 7:24 PM EDT [facility] nRBC 0.0 <=0.0 per 100 WBCs LAB HEMATOLOGY METHOD 06/14/2025 7:24 PM EDT [facility] Differential Type Automated LAB HEMATOLOGY METHOD 06/14/2025 7:24 PM EDT [facility] Neutrophils % 56 % LAB HEMATOLOGY METHOD 06/14/2025 7:24 PM EDT [facility] Lymphocytes % 25 % LAB HEMATOLOGY METHOD 06/14/2025 7:24 PM EDT [facility] Monocytes % 13 % LAB HEMATOLOGY METHOD 06/14/2025 7:24 PM EDT [facility] Eosinophils % 4 % LAB HEMATOLOGY METHOD 06/14/2025 7:24 PM EDT [facility] Basophils % 1 % LAB HEMATOLOGY METHOD 06/14/2025 7:24 PM EDT [facility] Immature Granulocytes % 1 % LAB HEMATOLOGY METHOD 06/14/2025 7:24 PM EDT [facility] Neutrophils Absolute 4.56 1.60 - 6.10 10*3/uL LAB HEMATOLOGY METHOD 06/14/2025 7:24 PM EDT [facility] Lymphocytes Absolute 1.97 1.20 - 3.90 10*3/uL LAB HEMATOLOGY METHOD 06/14/2025 7:24 PM EDT [facility] Monocytes Absolute 1.03(H) 0.30 - 0.90 10*3/uL LAB HEMATOLOGY METHOD 06/14/2025 7:24 PM EDT [facility] Eosinophils Absolute 0.31 0.00 - 0.50 10*3/uL LAB HEMATOLOGY METHOD 06/14/2025 7:24 PM EDT [facility] Basophils Absolute 0.04 0.00 - 0.10 10*3/uL LAB HEMATOLOGY METHOD 06/14/2025 7:24 PM EDT [facility] Immature Granulocytes Absolute 0.04 0.00 - 0.06 10*3/uL LAB HEMATOLOGY METHOD 06/14/2025 7:24 PM EDT [facility] Blood Venous blood specimen / Unknown Venipuncture / Unknown 06/14/2025 6:31 PM EDT 06/14/2025 7:06 PM EDT Narrative [facility] - 06/14/2025 7:24 PM EDT Therapeutic decision making should be based on absolute values, rather than percentages. us Luis Angel Bee MD LAB BLOOD ORDERABLES Nadia l Result [facility] [address] [place] [address] * Type and screen (06/14/2025 6:31 PM EDT) ABO/Rh A Positive 06/14/2025 6:13 PM EDT [facility]LOOD [facility] Antibody Screen Negative 06/14/2025 6:13 PM EDT [facility]LO[facility] Specimen Expiration 06/17/2025 23:59 06/14/2025 6:13 PM EDT [facility]LO[facility] Blood Venous blood specimen / Unknown Venipuncture / Unknown 06/14/2025 6:31 PM EDT 06/14/2025 7:08 PM EDT us Luis Angel Bee MD LAB BLOOD BANK TEST ORDER MARYA Final Result Performing Organization Address City/[facility]/ZIP Co de Phone Number BLOOD BANK [address] [place] [address], * (ABNORMAL) Protime-INR (06/14/2025 6:31 PM EDT) Prothrombin Time 25.9(H) 12.0 - 14.3 sec LAB COAGULATION METHOD 06/14/2025 7:23 PM EDT [facility] INR 2.3(H) 0.9 - 1.1 LAB COAGULATION METHOD 06/14/2025 7:23 PM EDT [facility] Blood Venous blood specimen / Unknown Venipuncture / Unknown 06/14/2025 6:31 PM EDT 06/14/2025 7:05 PM EDT Narrative [facility] - 06/14/2025 7:23 PM EDT OPTIMAL INR RANGES FOR PATIENT ON ORAL ANTICOAGULANT THERAPY Prevention of venous thromboembolism INR 2.0 to 3.0 In patients with heart disease: Atrial fibrillation INR 2.0 to 3.0 Valvular heart disease INR 2.0 to 3.0 Tissue heart valves INR 2.0 to 3.0 Mechanical prosthetic valves INR 2.5 to 3.5 Prevention of recurrent FL INR 2.5 to 3.5 Luis Angel Bee MD LAB BLOOD ORDERABLES Nadia l Result [facility] [address] [place] [address] * (ABNORMAL) APTT (06/14/2025 6:31 PM EDT) aPTT 47(H) 25 - 35 sec LAB COAGULATION METHOD 06/14/2025 7:23 PM EDT [facility] Blood Venous blood specimen / Unknown Venipuncture / Unknown 06/14/2025 6:31 PM EDT 06/14/2025 7:05 PM EDT Luis Angel Bee MD LAB BLOOD ORDERABLES Nadia l Result [facility] [address] [place] [address] * (ABNORMAL) Comprehensive metabolic panel (06/14/2025 6:31 PM EDT) [facility] Glucose, Plasma 86 74 - 99 mg/dL 06/14/2025 7:35 PM EDT [facility] BUN, Plasma 21 8 - 23 mg/dL 06/14/2025 7:35 PM EDT [facility] Creatinine, Plasma 1.28(H) 0.70 - 1.20 mg/dL 06/14/2025 7:35 PM EDT [facility] BUN/Creatinine Ratio 16 06/14/2025 7:35 PM EDT [facility] Sodium, Plasma 135(L) 136 - 145 mmol/L 06/14/2025 7:35 PM EDT [facility] Potassium, Plasma 3.9 3.6 - 4.9 mmol/L 06/14/2025 7:35 PM EDT [facility] Chloride, Plasma 104 97 - 107 mmol/L 06/14/2025 7:35 PM EDT [facility] CO2, Plasma 24 22 - 29 mmol/L 06/14/2025 7:35 PM EDT [facility] Anion Gap 7 6 - 16 mmol/L 06/14/2025 7:35 PM EDT [facility] Total Calcium, Plasma 7.6(L) 8.9 - 10.2 mg/dL 06/14/2025 7:35 PM EDT [facility] Total Protein 5.6(L) 6.3 - 7.9 g/dL 06/14/2025 7:35 PM EDT [facility] Albumin, Plasma 1.8(L) 3.5 - 5.2 g/dL 06/14/2025 7:35 PM EDT [facility] AST, Plasma 38 10 - 50 U/L 06/14/2025 7:35 PM EDT [facility] ALT, Plasma 31 10 - 50 U/L 06/14/2025 7:35 PM EDT [facility] Alkaline Phosphatase, Plasma 178(H) 40 - 115 U/L 06/14/2025 7:35 PM EDT [facility] Total Bilirubin, Plasma 6.6(H) 0.2 - 1.1 mg/dL 06/14/2025 7:35 PM EDT [facility] eGFRcr 62.5 mL/min/1.7 3m*2 06/14/2025 7:35 PM EDT [facility] Comment:Reported eGFRcr in m L/min/1.73m2 is based the CKD-EPI 2020 equation that does not use a race coefficient. Blood Venous blood specimen / Unknown Venipuncture / Unknown 06/14/2025 6:31 PM EDT 06/14/2025 7:05 PM EDT us Luis Angel Bee MD LAB BLOOD ORDERABLES Nadia crockett Result [facility] [address] [place] [address] documented in this encounter Visit Diagnoses Diagnosis Alcoholic cirrhosis, unspecified whether ascites present (CMS/HCC)- Primary Alcoholic cirrhosis, unspecified whether ascites present (CMS/HCC) documented in this encounter Admitting Diagnoses Diagnosis Alcoholic cirrhosis, unspecified whether ascites present (CMS/HCC) documented in this encounter Administered Medications Inactive Administered Medications - up to 3 most recent administrations Medication Order MAR Action Action Date Dose Rate Site dextrose 5 % and sodium chloride 0.45 % infusion 75 mL/hr, Intravenous, Continuous, Starting on Wed06/14/25 at 1915, Until Wed06/15/25 at 2014, Routine New Bag 06/15/2025 9:15 AM EDT 75 mL/hr 75 mL/h r Rate/Dose Verify 06/14/2025 11:06 PM EDT 75 mL/hr 75 mL/ hr New Bag 06/14/2025 9:23 PM EDT 75 mL/hr 75 mL/hr mupirocin (Bactroban) 2 % ointment 1 Application Each Nostril, 2 times daily, 10 doses, First dose on Wed06/14/25 at 2100, Last dose on Wed06/19/25 at 0900, Routine Given 06/15/2025 9:08 AM EDT 1 Application pantoprazole (Protonix) EC tablet 40 mg 40 mg, Oral, Daily before breakfast, First dose on Wed06/15/25 at 0730, Until Discontinued Given 06/15/2025 9:07 AM EDT 40 mg rifAXIMin (Xifaxan) tablet 550 mg 550 mg, Oral, 2 times daily, First dose on Wed06/14/25 at 2245, Until Discontinued, Routine Given 06/15/2025 9:07 AM EDT 550 mg Given 06/14/2025 10:10 PM EDT 550 mg documented in this encounter Active and Recently Administered Medications Times are shown in EDT. Scheduled Medication Order 06/13/2025 06/14/2025 06/15/2025 mupirocin (Bactroban) 2 % ointment 1 Application Each Nostril, 2 times daily, 10 doses, First dose on Wed06/14/25 at 2100, Last dose on Wed06/19/25 at 0900, Routine 2106 (Not Given - Provider: Chapito Jarrett - Reason: Patient/family refused) 0908 (Given - Provider: Sera Kitchen) pantoprazole (Protonix) EC tablet 40 mg 40 mg, Oral, Daily before breakfast, First dose on Wed06/15/25 at 0730, Until Discontinued 0907 (Given - Provid er: Sera Kitchen) rifAXIMin (Xifaxan) tablet 550 mg 550 mg, Oral, 2 times daily, First dose on Wed06/14/25 at 2245, Until Discontinued, Routine 2210 (Given - Provider: Chapito Jarrett) 0907 (Given - Provider: Sera Kitchen) Continuous Medication Order 06/13/2025 06/14/2025 06/15/2025 dextrose 5 % and sodium chloride 0.45 % infusion 75 mL/hr, Intravenous, Continuous, Starting on Wed06/14/25 at 1915, Until Wed06/15/25 at 2014, Routine 2122 (New Bag - Provider: Chapito Jarrett)2306 (Rate/Dose Verify - Provider: Chapito Jarrett) 0915 (New Bag - Provider: Sera Kitchen)1741 (Stopped - Provider: Sera Kitchen) documented in this encounter Additional Health Concerns Infection Onset Date Last Indicated Resolved Time COVID-19 Rule-Out 06/14/2025 06/14/2025 06/14/2025 8:35 PM EDT Assessment Noted Time PHQ-9 Depression Total Score: 0 10/04/20 24 12:32 PM EST A fall risk assessment has been complete d for the patient 06/13/2025 7:34 AM EDT A Body Mass Index follow-up plan has been documented for the patient 06/15/2025 5:41 PM EDT documented as of this encounter Care Teams [employer] Professor Relationship Specialty Start Date End Date Chris Medel MD [address] [place] [address] PCP - General 03/14/25 Ruma Hernández APRN [id number] [facility] [address] [place] [address] Referring Physician Gastroenterology 07/30/23 documented as of this encounter
--- OUTSIDE RECORDS SUMMARY | 2025-06-15 23:59 | XMS_ITS | Encounter Summary ---
Author Organization [facility] Address [address] [place] [address] Care Team Providers Care White Lead Filterer Name Role Phone Ruma Hernández PROTOCOL OFFICER Unavailable [phone] Chris Medel MD Primary Care Provider [phone] Encounter Details Date Type Department Care Team (Late st Contact Info) Description 06/15/2025 11:59 PM EDT Anesthesia Event [facility] A OPERATING ROOM [address] [place] [address] Mary Castellon, LAISHA [address] [facility] [address] [place] [address] Fanta Morrissey APRN [address] [place] [address] Anesthesia Record Procedure Summary Procedure Name Responsible [...] How often do you attend [facility] or evangelical services? More than 4 times per year 02/19/2025 Do you belong to any clubs o r organizations such as adventism groups, unions, fraternal or athletic groups, or [...] How often do you attend chur or evangelical services? More than 4 times per year 06/15/2025 Do you belong to any clubs o r organizations such as adventism groups, unions, fraternal or athletic groups, or [...] and heating? Not hard at all 06/15/2025 [facility] of Occupat ional [...] drink first t luisa in the morning (EYE-EDUCATIONAL TECHNOLOGIST) to steady your nerves or to get [...] Upcoming Encounters Date Type Department Care Team ([facility] Contact Info) Description 07/11/2025 9:00 AM EDT Clinical Support [facility] [place] [facility] Center [address] [place] [address] 07/11/2025 10:30 AM EDT Office Visit [facility] [place] [facility] [address] [place] [address] Portia Maguire MD [address] [place] [address] 10/03/2025 12:45 PM EST Office Visit Medical Office Building Urology [facility] [address] [facility], [address] [place] [address] Suhail Brock MD [address] [place] [address] 10/18/2025 4:20 PM EST Office Visit [facility] [place] [facility] [address], [address] [place] [address] Moustapha Katz MD [address] [place] [address] documented as of this encounter [...] documented as of this encounter Care Teams White Lead Filterer Relationship Specialty Start Date End Date Chris Medel MD [address] [place] [address] PCP - General 03/14/25 Ruma Hernández APRN [address] [facility] [address] [place] [address] Referring Physician Gastroenterology 07/30/23 documented as of this encounter
--- OUTSIDE RECORDS SUMMARY | 2025-06-18 09:29 | XMS_ITS | Clinical Summary ---
Author Organization [facility] Address [address] [place] [address] Care Team Providers Care Director Of Vendor Management Name Role Phone ToniUrban morataya DO Primary Care Provider [phone] Allergies Active Allergy Reactions Criticality Noted Date [...] CANCER SCREENING 03/31/2026 HEPATITIS C SCREENING Completed 06/14/2025 , 08/03/2023, 08/03/2023 Procedures Procedure Name Priority Date/Time Associated Diagnosis Comments SCANNED - COLONOSCOPY 03/31/2023 from Last 3 Months or Most Recently Relevant to Health Maintenance Results * SCANNED - COLONOSCOPY (03/31/2023) Corby Echeverria MD CHART REVIEW T ABS Final Result from Last 3 Months or Most Recently Relevant to Health Maintenance Insurance [facility] BLUE SHIELD PPO Member Subscriber Plan / Payer (Ef fective 2023-Present) Name:David Pop Relation to Subscriber:Self Name:David Pop Payer ID:[id number] ([facility]) Type:Not on file Address: [address] [place] [id number] Care Teams Director Of Vendor Management Relationship Specialty Start Date End Date Urban Brantley DO [address] [place] [address] PCP - General Internal Medicine 03/22/23
--- OUTSIDE RECORDS SUMMARY | 2025-06-18 09:29 | XMS_ITS | Encounter Summary ---
Author Organization [facility] Address [address] [place] [address] Care Team Providers Care Roof Mechanic Name Role Phone Ruma Hernández DENTAL TECHNOLOGY ADVISOR Unavailable [phone] Chris Medel MD Primary Care Provider [phone]- [phone] Encounter Details Date Type Department Care Team (Latest Contact Info) Description 06/14/2025 Travel Social History Tobacco Use Types Packs/Day [...] often do you attend chur ch or samaritan services? More than 4 times per year [...] any time in the past 12 m [facility], were you homeless or living in a jail (including now)? No 02/19/2025 Humiliation, Afraid, Rape, [...] 06/15/2025 How often do you attend chur ch or samaritan services? More than 4 times per year [...] and heating? Not hard at all 06/15/2025 [facility] - [...] any time in the past 12 m [facility], were you homeless or living in a jail (including now)? No 06/15/2025 CAGE ASSESSMENT Answer [...] drink first t luisa in the morning (EYE-NEW PATIENT ESCORT) to steady your nerves or to get rid of a hangover? 0 06/14/2025 CAGE Questionnaire Score 0 025 Utilities Answer Date Recorded In the past 12 months has th e [employer], gas, oil, or water company threatened to [...] as of this encounter Functional Status * Calculated C-SSRS Risk Score (Lifetime/Recent) Answer [...] Chapito Jarrett documented as of this encounter Plan of Treatment Upcoming Encounters Date Type Department Care Team (Late st Contact Info) Description 07/11/2025 9:00 AM EDT Clinical Support [facility] [place] [address] [place] [address] 07/11/2025 10:30 AM EDT Office Visit [facility] [address] [facility] [address] [place] [address] Portia Maguire MD [address] [facility] [address] [place] [address] 10/03/2025 12:45 PM EST Office Visit Medical Office Building Urology [address] [facility], [address] [place] [address] Suhail Brock MD [address] [facility] [address] [place] [address] 10/18/2025 4:20 PM EST Office Visit [employer] [place] [facility] [address] [facility], [address] [place] [address] Moustapha Katz MD [address] [facility] [address] [place] [address] documented as of this encounter Visit Diagnoses Not on filedocumented in this encounter Additional Health Concerns Infection [...] documented as of this encounter Care Teams Roof Mechanic Relationship Specialty Start Date End Date Chris Medel MD [address] [place] [address] PCP - General 03/14/25 Ruma Hernández APRN [address] [facility] [address] [place], [place] [address] Referring Physician Gastroenterology 07/30/23 documented as of this encounter
--- OUTSIDE RECORDS SUMMARY | 2025-06-18 09:29 | XMS_ITS | Encounter Summary ---
[facility] Address [address] [place] [address] Care Team Providers Care Extension Division Director Name Role Phone KaronUrban Hosea CAMRAA Primary Care Provider [phone] Encounter Details Date Type Department Care Team (Late st Contact Info) Description 10/14/2023 Telephone [facility] GASTROENTEROLOGY [address] [facility] 202 [place] [address] Ruma Hernández, COMPOUND SPECIALIST [address] [facility] 202 [place], [place] [address] Social History Tobacco Use Types Packs/Day Years [...] on filedocumented in this encounter Care Teams Extension Division Director Relationship Specialty Start Date End Date Urban Brantley DO [address] [place] [address] PCP - General Internal Medicine 03/22/23 documented as of this encounter
--- OUTSIDE RECORDS SUMMARY | 2025-06-18 09:29 | XMS_ITS | Encounter Summary ---
Author Organization [facility] Address [address] [place] [address] Care Team Providers Care Candy Decorator Name Role Phone Ruma Hernández SUPERVISOR FORMING AND TEMPERING Unavailable [phone] Chris Medel MD Primary Care Provider [phone]- [phone] Encounter Details Date Type Department Care Team (Late st Contact Info) Description 06/13/2025 Telephone [facility] [address] [place] [address] Zeferino Trejo, PharmD Social History Tobacco Use Types Packs/Day Years [...] How often do you attend chur or worship services? More than 4 times per year 02/19/2025 Do you belong to any clubs o r organizations such as caodaism groups, unions, fraternal or athletic groups, or [...] any clubs o r organizations such as caodaism groups, unions, fraternal or athletic groups, or [...] drink first t luisa in the morning (EYE-ASPHALT PAVING SUPERINTENDENT) to steady your nerves or to get rid of a hangover? 0 06/14/2025 CAGE Questionnaire Score 0 025 Utilities Answer Date Recorded In the past 12 months has th [employer], gas, oil, or water company threatened to [...] 1 Month) No 06/14/2025 9:23 PM EDT Charles Jarrett 6. Suicidal Behavior (Lifetime) No 9:23 PM EDT Chapito Jarrett documented as of this encounter Plan of Treatment Upcoming Encounters Date Type Department Care Team (Late st Contact Info) Description 07/11/2025 9:00 AM EDT Clinical Support [facility] [place] [address] [facility] [address] [place] [address] 07/11/2025 10:30 AM EDT Office Visit [facility] [place] [address] [facility] [address] [place] [address] Portia Maguire MD [address] [facility] [address] [place] [address] 10/03/2025 12:45 PM EST Office Visit Medical Office Building Urology [address] [facility], [address] [place] [address] Suhail Brock MD [address] [facility] [address] [place] [address] 10/18/2025 4:20 PM EST Office Visit [facility] [address] [facility], [address] [place] [address] Moustapha Katz MD [address] [facility] [address] [place] [address] documented as of this encounter Visit Diagnoses Not on filedocumented in this encounter Additional Health Concerns Infection Onset Date Last Indicated Resolved Time COVID-19 Rule-Out 06/14/2025 06/14/2025 06/14/2025 8:35 PM EDT Assessment Noted Time PHQ-9 Depression Total Score: 0 11/20/20 24 12:32 PM EST A fall risk assessment has been complete d for the patient 06/13/2025 7:34 AM EDT A Body Mass Index follow-up plan has been documented for the patient 03/14/2025 10:10 AM EDT documented as of this encounter Care Teams Candy Decorator Relationship Specialty Start Date End Date Chris Medel MD [address] [place] [address] PCP - General 03/14/25 Ruma Hernández APRN [address] [address] Referring Physician Gastroenterology 07/30/23 documented as of this encounter
--- OUTSIDE RECORDS SUMMARY | 2025-06-18 09:29 | XMS_ITS | Encounter Summary ---
Author Organization [facility] Address [address] [place] [address] Care Team Providers Care Inside Sales Account Executive Name Role Phone Ruma Hernández EGG CASER Unavailable [phone] Chris Medel MD Primary Care Provider [phone] Encounter Details Date Type Department Care Team (Latest Contact Info) Description 06/13/2025 Travel Social History Tobacco Use Types Packs/Day [...] often do you attend chur ch or jain services? More than 4 times per year 02/19/2025 Do you belong to any clubs o r organizations such as mosque groups, unions, fraternal or athletic groups, or [...] Recorded Patient Health Questionnaire-2 Score 0 06/08/2025 [facility] - Occupational Stress Questionnaire Answer Date [...] in a fdc (including now)? No 02/19/2025 CAGE ASSESSMENT Answer [...] drink first t luisa in the morning (EYE-SUPERVISOR SAMPLE) to steady your nerves or to get [...] PM EDT documented as of this encounter Plan of Treatment Upcoming Encounters Date Type Department Care Team (Late st Contact Info) Description 07/11/2025 9:00 AM EDT Clinical Support [facility] [place] [address] [facility] [address] [place] [address] 07/11/2025 10:30 AM EDT Office Visit [facility] [place] [address] [facility] [address] [place] [address] Portia Maguire MD [address] [facility] [address] [place] [address] 10/03/2025 12:45 PM EST Office Visit Medical Office Building Urology [address] [facility], [address] [place] [address] Suhail Brock MD [address] [facility] [address] [place] [address] 10/18/2025 4:20 PM EST Office Visit [facility] [address] [facility], [address] [place] [address] Moustapha Katz MD [address] [place] [address] documented as of this encounter [...] documented as of this encounter Care Teams Inside Sales Account Executive Relationship Specialty Start Date End Date Chris Medel MD [address] [place] [address] PCP - General 03/14/25 Ruma Hernández APRN [address] [place] [address] Referring Physician Gastroenterology 07/30/23 documented as of this encounter
--- OUTSIDE RECORDS SUMMARY | 2025-06-18 09:29 | XMS_ITS | Encounter Summary ---
Author Organization [facility] Address [address] [place] [address] Care Team Providers Care Water Team Leader Name Role Phone Ruma Hernández ELASTIC YARN TWISTER Unavailable [phone] Chris Medel MD Primary Care Provider [phone] Encounter Details Date Type Department Care Team (Late st Contact Info) Description 06/14/2025 Results Follow-Up [facility] [address] [place] [address] Meaghan Le, RN [facility] LIVER [id number] [address] [place] [address] Social History Tobacco Use Types Packs/Day Years [...] often do you attend [facility] or jew services? More than 4 times per year [...] in a assisted (including now)? No 02/19/2025 Humiliation, Afraid, Rape, [...] often do you attend chur ch or jew services? More than 4 times per year [...] and heating? Not hard at all 06/15/2025 [facility] [place] of Occupat ional Health - Occupational Stress [...] living in a assisted (including now)? No 06/15/2025 CAGE ASSESSMENT Answer [...] drink first t luisa in the morning (EYE-LINE FISHER) to steady your nerves or to get rid of a hangover? 0 06/14/2025 CAGE Questionnaire Score 0 025 Utilities Answer Date Recorded In the past 12 months has th [employer], gas, oil, or water [employer] threatened to shut off services in your [...] Encounter Note - Meaghan Le RN - 06/14/2025 10:11 AM EDT Yearly echo documented in this encounter Plan of Treatment Upcoming Encounters Date Type Department Care Team (Late st Contact Info) Description 07/11/2025 9:00 AM EDT Clinical Support [facility] [address] [place] [address] 07/11/2025 10:30 AM EDT Office Visit [facility] [address] [place] [address] Portia Maguire MD [address] [place] [address] 10/03/2025 12:45 PM EST Office Visit Medical Office Building Urology [address] [facility], [address] [place] [address] Suhail Brock MD [address] [place] [address] 10/18/2025 4:20 PM EST Office Visit [facility] [address] [facility], [address] [place] [address] Moustapha Katz MD [address] [facility] [address] [place] [address] documented as of this encounter Visit Diagnoses [...] documented as of this encounter Care Teams Water Team Leader Relationship Specialty Start Date End Date Chris Medel MD [address] [place] [address] PCP - General 03/14/25 Ruma Hernández APRN [address] [facility] 202 [place] [address] Referring Physician Gastroenterology 07/30/23 documented as of this encounter
--- OUTSIDE RECORDS SUMMARY | 2025-06-18 09:29 | XMS_ITS | Encounter Summary ---
[facility] Address [address] [place] [address] Care Team Providers Care Driver Supervisor Name Role Phone KaronUrban Hosea CAMARA Primary Care Provider [phone] Encounter Details Date Type Department Care Team (Late st Contact Info) Description 10/14/2023 Telephone [facility] GASTROENTEROLOGY [address] [facility] 202 [place] [address] Ruma Hernández, MEDICAL RECEPTIONIST 1780 [facility] 202 [place], [place] [address] Social History Tobacco Use Types Packs/Day Years [...] on filedocumented in this encounter Care Teams Driver Supervisor Relationship Specialty Start Date End Date Urban Brantley DO [address] [place] [address] PCP - General Internal Medicine 03/22/23 documented as of this encounter
--- OUTSIDE RECORDS SUMMARY | 2025-06-18 09:29 | XMS_ITS | Encounter Summary ---
Author Organization [facility] Address [address] [place] [address] Care Team Providers Care Import Export Coordinator Name Role Phone Ruma Hernández EMBOSSING MACHINE OPERATOR Unavailable [phone] Chris Medel MD Primary Care Provider [phone] Encounter Details Date Type Department Care Team (Late st Contact Info) Description 06/14/2025 Results Follow-Up [facility] [address] [place] [address] Meaghan Le, RN [facility] LIVER [id number] [address] [place] [address] Social History Tobacco Use Types [...] often do you attend [facility] or sikhism services? More than 4 times per year [...] in a residential (including now)? No 02/19/2025 Humiliation, Afraid, Rape, [...] often do you attend chur ch or sikhism services? More than 4 times per year [...] and heating? Not hard at all 06/15/2025 [facility] of Occupat ional Health - Occupational Stress [...] drink first t luisa in the morning (EYE-SILVER STEWARD) to steady your nerves or to get rid of a hangover? 0 06/14/2025 CAGE Questionnaire Score 0 025 Utilities Answer Date Recorded In the past 12 months has th [employer], gas, oil, or water [employer] threatened to shut off services in your [...] AM EDT Clinical Support [facility] [place] [address] [place] [address] 07/11/2025 10:30 AM EDT Office Visit [facility] [place] [address] [facility] [address] [place] [address] Portia Maguire MD [address] [facility] [address] [place] [address] 10/03/2025 12:45 PM EST Office Visit Medical Office Building Urology [address] [facility], [address] [place] [address] Suhail Brock MD [address] [facility] [address] [place] [address] 10/18/2025 4:20 PM EST [facility] Visit [facility] [address] [facility], [address] [place] [address] Moustapha Katz MD [address] [facility] [address] [place] [address] documented as of this encounter [...] documented as of this encounter Care Teams Import Export Coordinator Relationship Specialty Start Date End Date Chris Medel MD [address] [place] [address] PCP - General 03/14/25 Ruma Hernández APRN [facility] 202 [place] [address] Referring Physician Gastroenterology 07/30/23 documented as of this encounter
--- OUTSIDE RECORDS SUMMARY | 2025-06-18 09:29 | XMS_ITS | Encounter Summary ---
Author Organization Healthcare Address [address] [place] [address] Care Team Providers Care Technician Biological Health Name Role Phone Ruma Hernández ACTUARY CLERK Unavailable [phone] Chris Medel MD Primary Care Provider [phone] Encounter Details Date Type Department Care Team (Late st Contact Info) Description 05/01/2025 Results Follow-Up [facility] [address] [place] [address] Meaghan Le, RN [facility] LIVER [id number] [address] [place] [address] Social History Tobacco Use Types [...] How often do you attend chur or yazidism services? More than 4 times [...] Recorded Patient Health Questionnaire-2 Score 0 03/14/2025 [facility] [place] [facility] - Occupational Stress Questionnaire Answer [...] time in the past 12 m [facility], were you homeless or living in [...] PM EDT documented as of this encounter Miscellaneous Notes * Result Encounter Note - Zarina Moore PA - 05/01/2025 5:21 PM EDT MELD 21, no changes * Result Encounter Note - Meaghan Le RN - 05/01/2025 10:24 AM EDT MELD labs documented in this encounter Plan of Treatment Upcoming Encounters Date Type Department Care Team ([facility] st Contact Info) Description 07/11/2025 9:00 AM EDT Clinical Support [facility] [place] [address] [facility] [address] [place] [address] 07/11/2025 10:30 AM EDT Office Visit [facility] [place] [address] [facility] [address] [place] [address] Portia Maguire MD [address] [facility] [address] [place] [address] 10/03/2025 12:45 PM EST Office Visit Medical Office Building Urology [address] [facility], [address] [place] [address] Suhail Brock MD [address] [facility] [address] [place] [address] 10/18/2025 4:20 PM EST Office Visit Professional [employer] [place] [facility] [address] [facility], [address] [place] [address] Moustapha Katz MD [address] [facility] [address] [place] [address] documented as of this encounter [...] documented as of this encounter Care Teams Technician Biological Health Relationship Specialty Start Date End Date Chris Medel MD [address] [place] [address] PCP - General 03/14/25 Ruma Hernández APRN [address] [place] [address] Referring Physician Gastroenterology 07/30/23 documented as of this encounter
--- OUTSIDE RECORDS SUMMARY | 2025-06-18 09:30 | XMS_ITS | Encounter Summary ---
Author Organization Healthcare Address [address] [place] [address] Care Team Providers Care Ordained Minister Name Role Phone Ruma Hernández BUTTON CUTTER Unavailable [phone] Chris Medel MD Primary Care Provider [phone] Encounter Details Date Type Department Care Team (Late st Contact Info) Description 03/30/2025 Results Follow-Up [facility] [address] [place] [address] Meaghan Le, RN [facility] LIVER [id number] [address] [place] [address] Social History Tobacco Use Types [...] How often do you attend chur or hoahaoism services? More than 4 times per year [...] Recorded Patient Health Questionnaire-2 Score 0 03/14/2025 [facility] [place] [place] [facility] - Occupational Stress Questionnaire [...] Description 07/11/2025 9:00 AM EDT Clinical Support [facility] [place] [address] [facility] [address] [place] [address] 07/11/2025 10:30 AM EDT Office Visit [facility] [place] [address] [facility] [address] [place] [address] Portia Maguire MD [address] [facility] [address] [place] [address] 10/03/2025 12:45 PM EST Office Visit Medical Office Building Urology [address] [facility], [address] [place] [address] Suhail Brock MD [address] [facility] [address] [place] [address] 10/18/2025 4:20 PM EST Office Visit Professional [employer] [place] [facility] [address] [facility], [address] [place] [address] Moustapha Katz MD [address] [facility] [address] [place] [address] documented as of this encounter [...] documented as of this encounter Care Teams Ordained Minister Relationship Specialty Start Date End Date Chris Medel MD [address] [place] [address] PCP - General 03/14/25 Ruma Hernández APRN [address] [place] [address] Referring Physician Gastroenterology 07/30/23 documented as of this encounter
--- OUTSIDE RECORDS SUMMARY | 2025-06-18 09:30 | XMS_ITS | Encounter Summary ---
Author Organization Healthcare Address [address] [place] [address] Care Team Providers Care Restaurant Hospitality Manager Name Role Phone Urban Brantley DO Primary Care Provider [phone] Ruma Hernández SCRAP PREPARER Unavailable [phone] Chris Medel MD Primary Care Provider [phone] Encounter Details Date Type Department Care Team (Late st Contact Info) Description 03/22/2023 Orders Only External Location [address] [place] [address] Provider, External Social History Tobacco Use Types [...] Description 07/11/2025 9:00 AM EDT Clinical Support [facility] [place] [address] [address] 07/11/2025 10:30 AM EDT Office Visit [facility] Transplant [place] [address] [address] Portia Maguire MD [address] [place] [address] 10/03/2025 12:45 PM EST Office Visit Medical Office Building Urology [address] [facility], [address] [place] [address] Suhail Brock MD [address] [place] [address] 10/18/2025 4:20 PM EST Office Visit Professional [employer] [place] [facility] [address] [facility], [address] [place] [address] Moustapha Katz MD [address] [facility] [address] [place] [address] documented as of this encounter [...] Rule-Out 06/14/2025 06/14/2025 06/14/2025 8:35 PM EDT documented as of this encounter Care Teams Restaurant Hospitality Manager Relationship Specialty Start Date End Date Urban Brantley DO [address] [place] [address] PCP - General 07/30/23 03/13/25 Chris Medel MD [address] [place] [address] PCP - General 03/14/25 Ruma Hernández APRN [address] [facility] [address] [place], [place] [id number] Referring Physician Gastroenterology 07/30/23 documented as of this encounter
--- OUTSIDE RECORDS SUMMARY | 2025-06-18 09:30 | XMS_ITS | Encounter Summary ---
Author Organization Healthcare Address [address] [place] [address] Care Team Providers Care Kids Activities Coach Name Role Phone Urban Brantley DO Primary Care Provider [phone] Ruma Hernández DIRECTOR OF INSTITUTIONAL RESEARCH Unavailable [phone] Chris Medel MD Primary Care Provider [phone] Encounter Details Date Type Department Care Team (Late st Contact Info) Description 03/05/2025 Results Follow-Up [facility] [address] [facility] [address] [place] [address] Meaghan Le, RN HOSPITAL LIVER [id number] [address] [place] [id number] Social History Tobacco Use Types Packs/Day Years [...] often do you attend chur ch or presybeterian services? More than 4 times per year 02/19/2025 Do you belong to any clubs o r organizations such as congregation groups, unions, fraternal or athletic groups, or [...] Recorded Patient Health Questionnaire-2 Score 0 03/14/2025 [facility] [place] of Occupat ional Health - Occupational Stress [...] Description 07/11/2025 9:00 AM EDT Clinical Support [facility] [address] [place] [address] 07/11/2025 10:30 AM EDT Office Visit [facility] [address] [place] [address] Portia Maguire MD [address] [place] [address] 10/03/2025 12:45 PM EST Office Visit Medical Office Building Urology [address] [facility], [address] [place] [address] Suhail Brock MD [address] [place] [address] 10/18/2025 4:20 PM EST Office Visit Professional [facility] Bone [facility] Mineral Met[facility] [address] [facility], [address] [place] [address] Moustapha Katz MD [address] [facility] [address] [place] [address] documented as of this encounter Visit Diagnoses [...] documented as of this encounter Care Teams Kids Activities Coach Relationship Specialty Start Date End Date Urban Brantley DO [address] [place] [address] PCP - General 07/30/23 03/13/25 Chris Medel MD [address] [place] [address] PCP - General 03/14/25 Ruma Hernández APRN [address] [place], [place] [address] Referring Physician Gastroenterology 07/30/23 documented as of this encounter
--- OUTSIDE RECORDS SUMMARY | 2025-06-18 09:30 | XMS_ITS ---
Author Organization [facility] Address [address] 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 Care Team Name Role Phone Fax Email Meaghan Le RN Liver Coordinator [phone] N/A N/A Urban Brantley DO Primary Care Provider [phone] N/A Bird Kennedy MD Surgeon [phone] N/A Liliane Jacobs Inspector Elevators [phone] N/A N/A Ruma Hernández APRN Referring Physician [phone] N/A Events Pre-Transplant Referred: 07/30/2023 Committee: 06/19/2024 Center waitlisted: 07/05/2024 Appointments (05/18/2025 - 07/19/2025) When With Visit Type Description 06/13/2025 Transplant - [facility] Pre-liver transplant, listed; Other osteoporosis without current pathological fracture 06/13/2025 Transplant - Baylee Negro Office Visit - Transplant Alcoholic cirrhosis, unspecified whether ascites present (CMS/HCC) (Primary Dx) 07/11/2025 Transplant LAB 07/11/2025 Transplant - Baylee Maguire Office Visit - Transplant
--- OUTSIDE RECORDS SUMMARY | 2025-06-18 09:30 | XMS_ITS | Encounter Summary ---
Author Organization Healthcare Address [address] [place] [address] Care Team Providers Care Director University Name Role Phone Ruma Hernández BAG LOADER Unavailable [phone] Chris Medel MD Primary Care Provider [phone] Encounter Details Date Type Department Care Team (Late st Contact Info) Description 06/06/2025 Telephone [facility] Radiology [address] [place] [address] Mell Masterson, RN [facility]-DIAGNOSTIC RADIOLOGY Social History Tobacco Use Types Packs/Day Years [...] week 02/19/2025 How often do you attend [facility] or anabaptism services? More than 4 times per year [...] Recorded Patient Health Questionnaire-2 Score 0 06/08/2025 [facility] of Occupat ional Health [...] the past 12 m [facility], were you homeless or living in a [...] Mellissa Martines documented as of this encounter Plan of Treatment Upcoming Encounters Date Type Department Care Team (Late st Contact Info) Description 07/11/2025 9:00 AM EDT Clinical Support [facility] [place] [address] [facility] [address] [place] [address] 07/11/2025 10:30 AM EDT Office Visit [facility] [place] [address] [facility] [address] [place] [address] Portia Maguire MD [address] [facility] [address] [place] [address] 10/03/2025 12:45 PM EST Office Visit Medical Office Building Urology [address] [facility], [address] [place] [address] Suhail Brock MD [address] [facility] [address] [place] [address] 10/18/2025 4:20 PM EST Office Visit [facility] [address] [facility], [address] [place] [address] Moustapha Katz MD [address] [facility] [address] [place] [address] documented as of this encounter [...] as of this encounter Care Teams Director University Relationship Specialty Start Date End Date Chris Medel MD [address] [place] [address] PCP - General 03/14/25 Ruma Hernández APRN [address] [place] [address] [address] [place] [address] Referring Physician Gastroenterology 07/30/23 documented as of this encounter
--- OUTSIDE RECORDS SUMMARY | 2025-06-18 09:30 | XMS_ITS | Encounter Summary ---
Author Organization Healthcare Address [address] [place] [address] Care Team Providers Care Drywall Sprayer Name Role Phone Urban Brantley DO Primary Care Provider [phone] Ruma Hernández DIVISION MANAGER Unavailable Chris Medel MD Primary Care Provider [phone] Encounter Details Date Type Department Care Team (Late st Contact Info) Description 12/30/2023 Orders Only External Location [address] [place] [address] Urban Stafford MD [address] [facility] [address] [place] [address] Social History Tobacco Use Types Packs/Day [...] Description 07/11/2025 9:00 AM EDT Clinical Support [facility] Transplant [place] [address] [place] [address] 07/11/2025 10:30 AM EDT Office Visit [facility] [place] [address] [place] [address] Portia Maguire MD [address] [place] [address] 10/03/2025 12:45 PM EST Office Visit Medical Office Building Urology [address] [facility], [address] [place] [address] Suhail Brock MD [address] [place] [address] 10/18/2025 4:20 PM EST Office Visit Professional [employer] [place] [facility] [address] [facility], [address] [place] [address] Moustapha Katz MD [address] [place] [address] documented as of this encounter Procedures Procedure Name Priority Date/Time Associated Diagnosis Comments CT OUTSIDE IMAGES 12/30/2023 9:37 AM EST documented in this encounter Results * CT OUTSIDE IMAGES (12/30/2023 9:37 AM EST) Anatomical Region Laterality Modality Computed Tomogra phy 12/30/2023 9:37 AM EST us Urban Stafford MD IMG CT PROCEDURES Final Result documented in this encounter Visit Diagnoses Not on filedocumented in this encounter Additional Health Concerns Infection Onset Date Last Indicated Resolved Time COVID-19 Rule-Out 06/14/2025 06/14/2025 06/14/2025 8:35 PM EDT Assessment Noted Time A fall risk assessment has been complete d for the patient 10/05/2023 7:47 AM EST A Body Mass Index follow-up plan has been documented for the patient 10/05/2023 11:22 AM EST documented as of this encounter Care Teams Drywall Sprayer Relationship Specialty Start Date End Date Urban Brantley DO [address] [place] [address] PCP - General 07/30/23 03/13/25 Chris Medel MD [address] [place] [address] PCP - General 03/14/25 Ruma Hernández APRN [address] [place] [address] Referring Physician Gastroenterology 07/30/23 documented as of this encounter
--- OUTSIDE RECORDS SUMMARY | 2025-06-18 09:30 | XMS_ITS | Encounter Summary ---
Author Organization Healthcare Address [address] [place] [address] Care Team Providers Care Supervisor Propellant Charge Loading Name Role Phone Ruma Hernández TELEGRAPHIC TYPEWRITER OPERATOR Unavailable [phone] Chris Medel MD Primary Care Provider [phone] Encounter Details Date Type Department Care Team (Late st Contact Info) Description 04/03/2025 Results Follow-Up [facility] [address] [place] [address] Meaghan Le, RN [facility] LIVER [id number] [address] [place] [address] Social History Tobacco Use Types [...] How often do you attend chur or taoist services? More than 4 times per year 02/19/2025 Do you belong to any clubs o r organizations such as scientology groups, unions, fraternal or athletic groups, or [...] Recorded Patient Health Questionnaire-2 Score 0 03/14/2025 [facility] [place] [facility] - Occupational Stress Questionnaire [...] Upcoming Encounters Date Type Department Care Team ([facility] st Contact Info) Description 07/11/2025 9:00 AM EDT Clinical Support [facility] [place] [address] [facility] [address] [place] [address] 07/11/2025 10:30 AM EDT Office Visit [facility] [place] [address] [facility] [address] [place] [address] Portia Maguire MD [address] [facility] [address] [place] [address] 10/03/2025 12:45 PM EST Office Visit Medical Office Building Urology [address] [facility], [address] [place] [address] Suhail Brock MD [address] [facility] [address] [place] [address] 10/18/2025 4:20 PM EST Office Visit [facility] [address] [facility], [address] [place] [address] Moustapha Katz MD [address] [facility] [address] [place] [address] documented as of this encounter [...] documented as of this encounter Care Teams Supervisor Propellant Charge Loading Relationship Specialty Start Date End Date Chris Medel MD [address] [place] [address] PCP - General 03/14/25 Ruma Hernández APRN [address] [place] [address] Referring Physician Gastroenterology 07/30/23 documented as of this encounter
--- OUTSIDE RECORDS SUMMARY | 2025-06-18 09:30 | XMS_ITS | Encounter Summary ---
Author Organization Healthcare Address [address] [place] [address] Care Team Providers Care Delivery Rep Name Role Phone Ruma Hernández PLACEMENT MANAGER Unavailable [phone] Chris Medel MD Primary Care Provider [phone] Encounter Details Date Type Department Care Team (Latest Contact Info) Description 06/05/2025 Travel Social History Tobacco Use Types Packs/Day [...] often do you attend chur ch or evangelical services? More than 4 times [...] Recorded Patient Health Questionnaire-2 Score 0 03/14/2025 [facility] - Occupational Stress Questionnaire Answer Date [...] living in a half-way (including now)? No 02/19/2025 Utilities Answer Date [...] [facility] [address] [place] [address] 07/11/2025 10:30 AM EDT Office Visit [facility] [place] [address] [place] [address] Portia Maguire MD [address] [place] [address] 10/03/2025 12:45 PM EST Office Visit Medical Office Building Urology [address] [facility], [address] [place] [address] Suhail Brock MD [address] [facility] [address] [place] [address] 10/18/2025 4:20 PM EST Office Visit [place] [facility] [address] [facility], [address] [place] [address] Moustapha Katz MD [address] [facility] [address] [place] [address] documented as of this encounter [...] documented as of this encounter Care Teams Delivery Rep Relationship Specialty Start Date End Date Chris Medel MD [address] [place] [address] PCP - General 03/14/25 Ruma Hernández APRN [address] [facility] [address] [place] [address] Referring Physician Gastroenterology 07/30/23 documented as of this encounter
--- OUTSIDE RECORDS SUMMARY | 2025-06-18 09:30 | XMS_ITS | Encounter Summary ---
Author Organization Healthcare Address [address] [place] [address] Care Team Providers Care Correctional Nurse Name Role Phone Ruma Hernández SUPERVISOR TUMBLING AND ROLLING Unavailable [phone] Chris Medel MD Primary Care Provider [phone] Encounter Details Date Type Department Care Team (Late st Contact Info) Description 06/07/2025 Telephone [facility] [address] [facility], [address] [place] [address] Mary [place], [facility] Social History Tobacco Use Types Packs/Day Years [...] How often do you attend chur or orthodox services? More than 4 times [...] Score 0 06/08/2025 [facility] of Occupat ional Health - Occupational [...] encounter Miscellaneous Notes * Telephone Encounter - Mary [place] LPN - 06/07/2025 1:15 PM EDT Faxed record request for lab results to [facility] Medical Records F documented in this encounter Plan of Treatment Upcoming Encounters Date Type Department Care Team (Late st Contact Info) Description 07/11/2025 9:00 AM EDT Clinical Support [facility] [place] [address] [facility] [address] [place] [address] 07/11/2025 10:30 AM EDT Office Visit [facility] [place] [address] [facility] [address] [place] [address] Portia Maguire MD [address] [facility] [address] [place] [address] 10/03/2025 12:45 PM EST Office Visit Medical Office Building Urology [address] [facility], [address] [place] [address] Suhail Brock MD [address] [facility] [address] [place] [address] 10/18/2025 4:20 PM EST Office Visit Professional [employer] [place] Bone & Mineral Metabolism [address] [facility], [address] [place] [address] Moustapha Katz MD [address] [facility] [address] [place] [address] documented as of this encounter [...] as of this encounter Care Teams Correctional Nurse Relationship Specialty Start Date End Date Chris Medel MD [address] [place] [address] PCP - General 03/14/25 Ruma Hernández APRN [address] [place] [address] Referring Physician Gastroenterology 07/30/23 documented as of this encounter
--- OUTSIDE RECORDS SUMMARY | 2025-06-18 09:30 | XMS_ITS | Encounter Summary ---
Author Organization Healthcare Address [address] [place] [address] Care Team Providers Care Wheelman Name Role Phone Ruma Hernández MINE TECHNICIAN Unavailable [phone] Chris Medel MD Primary Care Provider [phone] Encounter Details Date Type Department Care Team (Late st Contact Info) Description 06/05/2025 Results Follow-Up [facility] [address] [place] [address] Meaghan Le, RN [facility] [id number] [address] [place] [address] Social History Tobacco Use Types [...] How often do you attend chur or uatsdin services? More than 4 times [...] Recorded Patient Health Questionnaire-2 Score 0 06/08/2025 [facility] - Occupational Stress Questionnaire [...] in the past 12 m [facility], were you homeless or living in a halfway (including now)? No 02/19/2025 Utilities Answer Date [...] Encounter Note - Zarina Moore PA - 06/05/2025 12:13 PM EDT Labs reviewed - MELD 22, stable. * Result Encounter Note - Meaghan Le RN - 06/05/2025 11:33 AM EDT Monthly labs documented in this encounter Plan of Treatment Upcoming Encounters Date Type Department Care Team (Late st Contact Info) Description 07/11/2025 9:00 AM EDT Clinical Support [facility] [address] [place] [address] 07/11/2025 10:30 AM EDT Office Visit [facility] [address] [place] [address] Portia Maguire MD [address] [place] [address] 10/03/2025 12:45 PM EST Office Visit Medical Office Building Urology [address] [facility], [address] [place] [address] Suhail Brock MD [address] [place] [address] 10/18/2025 4:20 PM EST Office Visit [facility] [employer] [facility] [address] [facility], [address] [place] [address] Moustapha Katz MD [address] [facility] [address] [place] [address] documented as of this encounter [...] documented as of this encounter Care Teams Wheelman Relationship Specialty Start Date End Date Chris Medel MD [address] [place] [address] PCP - General 03/14/25 Ruma Hernández APRN [address] [place] [address] Referring Physician Gastroenterology 07/30/23 documented as of this encounter
--- OUTSIDE RECORDS SUMMARY | 2025-06-18 09:30 | XMS_ITS | Encounter Summary ---
Author Organization Healthcare Address [address] [place] [address] Care Team Providers Care Rotary Dump Operator Name Role Phone Urban Brantley DO Primary Care Provider [phone] Ruma Hernández WAREHOUSE ASSOCIATE Unavailable [phone] Chris Medel MD Primary Care Provider [phone] Encounter Details Date Type Department Care Team (Late st Contact Info) Description 03/22/2023 Orders Only External Location [address] [place] [address] Provider, External Social History Tobacco Use Types [...] Description 07/11/2025 9:00 AM EDT Clinical Support [facility] [place] [address] [address] 07/11/2025 10:30 AM EDT Office Visit [facility] [place] [address] [address] Portia Maguire MD [address] [place] [address] 10/03/2025 12:45 PM EST Office Visit Medical Office Building Urology [address] [facility], [address] [place] [address] Suhail Brock MD [address] [place] [address] 10/18/2025 4:20 PM EST Office Visit [facility] [employer] [facility] [address] [facility], [address] [place] [address] Moustapha Katz MD [address] [facility] [address] [place] [address] documented as of this encounter [...] documented as of this encounter Care Teams Rotary Dump Operator Relationship Specialty Start Date End Date Urban Brantley DO [address] [place] [address] PCP - General 07/30/23 03/13/25 Chris Medel MD [address] [place] [address] PCP - General 03/14/25 Ruma Hernández APRN [address] [facility] [address] [place], [place] [id number] Referring Physician Gastroenterology 07/30/23 documented as of this encounter
--- OUTSIDE RECORDS SUMMARY | 2025-06-18 09:30 | XMS_ITS | Encounter Summary ---
Author Organization Healthcare Address [address] [place] [address] Care Team Providers Care User Interface Designer Name Role Phone Urban Brantley DO Primary Care Provider [phone] Ruma Hernández PROPOSAL CONSULTANT Unavailable [phone] Chris Medel MD Primary Care Provider [phone] Encounter Details Date Type Department Care Team (Late st Contact Info) Description 05/09/2023 Orders Only External Location [address] [place] [address] Provider, External Social History Tobacco Use Types [...] Support [facility] [place] [address] [address] 07/11/2025 10:30 AM EDT Office Visit [facility] [place] [address] [address] Portia Maguire MD [address] [place] [address] 10/03/2025 12:45 PM EST Office Visit Medical Office Building Urology [address] [facility], [address] [place] [address] Suhail Brock MD [address] [place] [address] 10/18/2025 4:20 PM EST Office Visit [facility] [employer] [facility] [address] [facility], [address] [place] [address] Moustapha Katz MD [address] [facility] [address] [place] [address] documented as of this encounter [...] documented as of this encounter Care Teams User Interface Designer Relationship Specialty Start Date End Date Urban Brantley DO [address] [place] [address] PCP - General 07/30/23 03/13/25 Chris Medel MD [address] [place] [address] PCP - General 03/14/25 Ruma Hernández APRN [address] [facility] [address] [place] [address] Referring Physician Gastroenterology 07/30/23 documented as of this encounter
--- OUTSIDE RECORDS SUMMARY | 2025-06-18 09:30 | XMS_ITS | Encounter Summary ---
Author Organization Healthcare Address [address] [place] [address] Care Team Providers Care Dragger Name Role Phone Ruma Hernández LAW OFFICE MANAGER Unavailable [phone] Chris Medel MD Primary Care Provider [phone] Encounter Details Date Type Department Care Team (Late st Contact Info) Description 05/22/2025 Telephone [facility] [address] [place] [address] Meaghan Le, RN [facility] LIVER [id number] [address] [place] [address] Social History Tobacco Use Types [...] How often do you attend chur or adventism services? More than 4 times per year [...] Recorded Patient Health Questionnaire-2 Score 0 03/14/2025 [facility] Occupational Stress Questionnaire Answer Date [...] any time in the past 12 m [facility], were you homeless or living [...] AM EDT Clinical Support [facility] [place] [address] [facility] [address] [place] [address] 07/11/2025 10:30 AM EDT Office Visit [facility] [place] [address] [facility] [address] [place] [address] Portia Maguire MD [address] [facility] [address] [place] [address] 10/03/2025 12:45 PM EST Office Visit Medical Office Building Urology [address] [facility], [address] [place] [address] Suhail Brock MD [address] [facility] [address] [place] [address] 10/18/2025 4:20 PM EST Office Visit [facility] [address] [facility], [address] [place] [address] Moustapha Katz MD [address] [facility] [address] [place] [address] documented as of this encounter Results * XR Chest 2 [...] Visit Diagnoses Diagnosis Pre-liver transplant, listed- Primary Pre-liver transplant, listed documented in this encounter Additional Health Concerns Assessment Noted Time PHQ-9 Depression Total Score: 0 10/04/20 24 12:32 PM EST A fall risk assessment has been complete d for the patient 03/14/2025 7:31 AM EDT A Body Mass Index follow-up plan has been documented for the patient 03/14/2025 10:10 AM EDT documented as of this encounter Care Teams Dragger Relationship Specialty Start Date End Date Chris Medel MD [address] [place] [address] PCP - General 03/14/25 Ruma Hernández APRN [address] [facility] [address] [place] [address] Referring Physician Gastroenterology 07/30/23 documented as of this encounter
--- OUTSIDE RECORDS SUMMARY | 2025-06-18 09:30 | XMS_ITS | Clinical Summary ---
Author Organization [facility] Address [address] [place] [address] Care Team Providers Care Education Officer Name Role Phone Ruma Hernández WELL TESTER Unavailable [phone] Chris Medel MD Primary Care Provider [phone] Allergies Active Allergy Reactions Criticality Noted Date Comments Lisinopril Cough Low 09/15/2021 Medications carvedilol (Coreg) 3.125 MG tabletIndication s:Cirrhosis of liver with ascites, unspecified hepatic cirrhosis type (CMS/HCC) Take 1 tablet (3.125 mg) by mouth 2 (two) times a day with meals. 60 tablet 11 4 09/13/20 25 Active Additional Information Patient not taking.Reported on 06/15/2025 Xifaxan 550 MG tablet Take 1 tablet by mouth 2 times a day. 5 Active ergocalciferol (Vitamin D-2) 1.25 MG (84266 UT) capsule Take 1 capsule by mouth [...] 26 Active omeprazole (PriLOSEC) [address] capsuleIndicatio ns:Cirrhosis of liver with ascites, unspecified hepatic cirrhosis type (CMS/HCC) Take 2 capsules by mouth daily. 180 capsule 3 5 03/14/20 26 Active calcitriol (Rocaltrol) 0.25 MCG capsule Take 1 capsule by mouth daily. Take 1 capsule daily only on 5 days in the week ( Wednesday to Wednesday only) 24 capsule 5 5 12/07/19 26 Active Additional Information Patient not taking.Reported on 06/15/2025 Active Problems Problem Noted Date Diagnosed Date Alcoholic cirrhosis, unspecified whether ascites present 06/14/2025 Bilateral leg edema 03/14/2025 Other ascites 03/14/2025 Left inguinal hernia 02/19/2025 Other osteoporosis without current pathological fracture 12/26/2024 Iron overload 12/26/2024 Vitamin D deficiency 12/26/2024 Obesity (BMI 35.0-39.9 without comorbidity) 11/16 Severe obesity (BMI 35.0-39.9) with comorbidity 12/13/2024 Alcoholic cirrhosis of liver 11/14/2024 HTN (hypertension) 11/14/2024 HLD (hyperlipidemia) 10/29/2023 Encounters Date Type Department Care Team Description 06/15/2025 11:59 PM EDT Anesthesia Event [facility] OPERATING ROOM [address] [place] [address] Mary Castellon PA Benson, Cathryn M, DEEP 06/14/2025 3:47 PM EDT - 06/15/2025 6:14 PM EDT Hospital Encounter [facility] Inpatient [address] [place] [address] Luis Angel Bee MD Alcoholic cirrhosis, unspecified whether ascites present (CMS/HCC) (Primary Dx) Discharge Disposition: Home or Self Care 06/14/2025 Travel 06/14/2025 Results Follow-Up [facility] [address] [place] [address] Meaghan Le, RN 06/14/2025 Results Follow-Up [facility] [address] [place] [address] Meaghan Le, RN 06/13/2025 12:57 PM EDT - 06/13/2025 11:59 PM EDT Hospital Encounter [facility] Radiology [address] [place] [phone] Chris Knott, SILVIO Pre-liver transplant, listed Discharge Disposition: Home or Self Care 06/13/2025 10:36 AM EDT - 06/13/2025 12:56 PM EDT Hospital Encounter Cardiac Imaging [address] [place] [phone] Pre-liver transplant, listed Discharge Disposition: Home or Self Care 06/13/2025 9:56 AM EDT - 06/13/2025 10:35 AM EDT Hospital Encounter [facility] [address] [place] [phone] Alcoholic cirrhosis, unspecified whether ascites present (CMS/HCC) Discharge Disposition: Home or Self Care 06/13/2025 8:00 AM EDT Office Visit [facility] [address] [facility] [address] [place] [phone] Portia Maguire MD Alcoholic cirrhosis, unspecified whether ascites present (CMS/HCC) (Primary Dx) 06/13/2025 7:05 AM EDT - 06/13/2025 9:55 AM EDT Hospital Encounter [facility] [address] [place] [address] Pre-liver transplant, listed Discharge Disposition: Home or Self Care 06/13/2025 Telephone [facility] [address] [place] [address] Zeferino Trejo, PharmD 06/13/2025 Travel 06/08/2025 12:20 PM EDT Office Visit [facility] [address], [address] [place] [address] Moustapha Katz MD Age-related osteoporosis without current pathological fracture (Primary Dx) 06/08/2025 8:35 AM EDT - 06/08/2025 11:59 PM EDT Hospital Encounter [facility] [address], [address] [place] [address] Other osteoporosis without current pathological fracture Discharge Disposition: Home or Self Care 06/08/2025 Travel 06/07/2025 Telephone [facility] [address] [facility], [address] [place] [address] Mary Chatman LPN 06/06/2025 Telephone [facility] [address] [place] [address] Mell Masterson RN 06/05/2025 Travel 06/05/2025 Results Follow-Up [facility] [address] [place] [phone] Meaghan Le, RN 05/22/2025 Telephone [facility] [address] [place] [phone] Meaghan Le, RN 05/01/2025 Results Follow-Up [facility] [address] [place] [phone] Meaghan Le, RN 04/03/2025 Results Follow-Up [facility] [address] [place] [phone] Meaghan Le, RN 03/30/2025 Results Follow-Up [facility] [address] [place] [phone] Meaghan Le, RN from Last 3 Months Immunizations Immunization Administration Dates Next Due Hep B, adult 12/28/2023,06/29/2023,06/02/2023 Family History Medical History Relation Name Comments Diabetes Daughter Gloria Asthma Father Mental illness Father Hearing loss Mother Sera Relation Name Status Comments Daughter Gloria Father Mother Sera Social History Tobacco Use Types [...] any clubs o r organizations such as taoist groups, unions, fraternal or athletic groups, or [...] in a correction (including now)? No 02/19/2025 Humiliation, Afraid, Rape, [...] week 06/15/2025 How often do you attend [facility] or yarsani services? More than 4 times per year 06/15/2025 Do you belong to any clubs o r organizations such as taoist groups, unions, fraternal or athletic groups, or [...] and heating? Not hard at all 06/15/2025 [facility] Occupat ional Health - Occupational Stress [...] drink first t luisa in the morning (EYE-SAP BW ARCHITECT) to steady your nerves or to get rid of a hangover? 0 06/14/2025 CAGE Questionnaire Score 0 025 Utilities Answer Date Recorded In the past 12 months has th e [employer], gas, oil, or water company threatened to shut off services in your home? Yes 06/15/2025 PHQ-2A Answer Date Recorded Patient Health Questionnaire-2 Score 0 10/05/2023 Sex and Gender Information Value Date Recorded Sex Assigned at Male 06/14/2025 4:18 PM EDT Legal Sex Male 8:57 PM EDT Gender Identity Male 06/14/2025 4:18 PM EDT Sexual Orientation Straight 06/14/2025 4: 18 PM EDT Last Filed Vital Signs Vital Sign Reading [...] Mass Index 36.69 06/14/2025 5:00 PM EDT Plan of Treatment Upcoming Encounters Date Type Department Care Team (Late st Contact Info) Description 07/11/2025 9:00 AM EDT Clinical Support [facility] [address] [place] [address] 07/11/2025 10:30 AM EDT Office Visit [facility] [place] [address] [place] [address] Portia Maguire MD [address] [place] [address] 10/03/2025 12:45 PM EST Office Visit Medical Office Building Urology [address] [facility], [address] [place] [address] Suhail Brock MD [address] [place] [address] 10/18/2025 4:20 PM EST Office Visit [facility] [place] [facility] [address] [facility], [address] [place] [address] Moustapha Katz MD [address] [facility] [address] [place] [address] Health Maintenance Due Date Last Done Comments [facility]-/Child/Adol SDOH Screenings 1960 [facility]-DTaP,Tdap,and Td Vaccines (1 [...] - Risk 60-74 years 1-dose series) 2021 [id number] Vaccine ( - season) 2024 [facility]-Influenza Vaccine (#1) 2025 [facility]- SDOH Screenings 12/16/2025 [facility]-Adult SDOH Screenings 12/16/2025 06/15/2025 [facility]-Bone Density Scan 06/08/2026 06/08/2025, 024 [facility]-Depression Screening 06/08/2026 06/08/2025, 09/16 [facility]-HIV Screening Completed 06/14/2025, 04/11/2024 [facility]-Hepatitis C Screening Completed 06/14/2025, [facility]-Obesity Intervention Completed 025, 03/14/2025, 03/06/2025, Additional history exists HPV Vaccines Aged Out [...] ECG ADULT STAT 06/15/2025 10:35 AM EDT SARS COV-2/COVID-19 BY PCR - RAPID STAT 06/14/2025 6:47 PM EDT LETICIA AURIS SURVEILLANCE BY PCR Routine 06/14/2025 6:47 PM EDT CYTOMEGALOVIRUS ANTIBODY, IGG Add-On 06/14/2025 6:31 PM EDT EXTRA TUBE LIGHT GREEN TOP Routine 06/14/2025 6:31 PM EDT EXTRA TUBE RED TOP Routine 06/14/2025 6: 31 PM EDT EXTRA TUBES Routine 06/14/2025 6:31 PM EDT HIV 1/2 ANTIBODY/ANTIGEN SCREEN WITH REFLEX TO HIV I/II DIFFERENTIATION STAT 06/14/2025 6:31 PM EDT HIV 1/2 ANTIBODY/ANTIGEN SCREEN W/REFLEX TO HIV 1/2 ANTIBODY DIFFERENTIATION STAT 06/14/2025 6:31 PM EDT HEPATITIS C ANTIBODY W/REFLEX TO HCV QUANT PCR STAT 06/14/2025 6:31 PM EDT HEPATITIS B SURFACE ANTIGEN STAT 06/14/2025 6:31 PM EDT HEPATITIS B SURFACE ANTIBODY, QUANTITATIVE Routine 06/14/2025 6:31 PM EDT HEPATITIS B CORE TOTAL AB (IGG AND IGM) STAT 06/14/2025 6:31 PM EDT VITAMIN D 25 HYDROXY STAT 06/14/2025 6:31 PM EDT CBC WITH AUTO DIFFERENTIAL STAT 06/14/2025 6:31 PM EDT TYPE AND SCREEN Routine 06/14/2025 6:31 PM EDT PROTHROMBIN TIME(PT) / INR Routine 06/14/2025 6:31 PM EDT APTT Routine 06/14/2025 6:31 PM EDT COMPREHENSIVE METABOLIC PANEL, PLASMA Routine 06/14/2025 6:31 PM EDT PREPARE RBC Routine 06/14/2025 6:[address] ANGIO CARDIAC CORONARY ARTERIES Routine 06/13/2025 3:02 PM EDT Pre-liver transplant, listed ECHO, ADULT TRANSTHORACIC COMPLETE Routine 06/13/2025 11:34 AM EDT Pre-liver transplant, listed US LIVER SCREEN STAT 06/13/2025 10:34 AM EDT Alcoholic cirrhosis, unspecified whether ascites present (CMS/HCC) XR CHEST 2 VIEWS Routine 06/13/2025 7:21 AM EDT Pre-liver transplant, listed PHOSPHORUS, PLASMA Routine 06/13/2025 6: 50 AM EDT Other osteoporosis without current pathological fracture PAIN MANAGEMENT, QUANTITATIVE URINE DRUG TESTING Routine 06/13/2025 6:50 AM EDT Pre-liver transplant, listed VITAMIN D 25 HYDROXY Routine 06/13/2025 6:50 AM EDT Other osteoporosis without current pathological fracture C-TELOPEPTIDE Routine 06/13/2025 6:50 AM EDT Other osteoporosis without current pathological fracture OSTEOCALCIN BY ECIA (SO) Routine 06/13/2025 6:50 AM EDT Other osteoporosis without current pathological fracture BONE SPECIFIC ALKALINE PHOSPHATASE Routine 06/13/2025 6:50 AM EDT Other osteoporosis without current pathological fracture VITAMIN D, 1, 25-DIHYDROXY Routine 06/13/2025 6:50 AM EDT Other osteoporosis without current pathological fracture ALCOHOL, URINE Routine 06/13/2025 6:50 AM EDT Pre-liver transplant, listed CBC W/O DIFFERENTIAL Routine 06/13/2025 6:50 AM EDT Pre-liver transplant, listed COMPREHENSIVE METABOLIC PANEL, PLASMA Routine 06/13/2025 6:50 AM EDT Pre-liver transplant, listed COMPREHENSIVE URINE DRUG SCREENING,QUALITATIVE ASSAY, >= 27 DRUG CLASSES Routine 06/13/2025 6:50 AM EDT Pre-liver transplant, listed NICOTINE AND COTININE METABOLITE, SERUM, QUANTITATIVE Routine 06/13/2025 6:50 AM EDT Pre-liver transplant, listed PAIN MANAGEMENT, QUANTITATIVE URINE DRUG TESTING Routine 06/13/2025 6:50 AM EDT Pre-liver transplant, listed PROTHROMBIN TIME(PT) / INR Routine 06/13/2025 6:50 AM EDT Pre-liver transplant, listed DEXA BONE DENSITY Routine 06/08/2025 8:3 5 AM EDT Other osteoporosis without current pathological fracture COMPREHENSIVE METABOLIC PANEL, PLASMA Routine 06/04/2025 CBC W/O DIFFERENTIAL Routine 06/04/2025 PROTHROMBIN TIME(PT) / INR Routine 06/04/2025 COMPREHENSIVE METABOLIC PANEL, PLASMA Routine 04/30/2025 CBC W/O DIFFERENTIAL Routine 04/30/2025 PROTHROMBIN TIME(PT) / INR Routine 04/30/2025 COMPREHENSIVE METABOLIC PANEL, PLASMA Routine 04/02/2025 CBC W/O DIFFERENTIAL Routine 04/02/2025 PROTHROMBIN TIME(PT) / INR Routine 04/02/2025 FERRITIN, SERUM Routine 03/26/2025 HEMOGLOBIN Routine 03/26/2025 HEMATOCRIT, BLOOD Routine 03/26/2025 from Last 3 Months Results * ECG Adult (06/15/2025 10:35 AM EDT) EKG DIAGNOSIS CLASS Abnormal MUSE ECG Ventricular Rate 65 BPM MUSE ECG Atrial Rate 65 BPM MUSE ECG [place] Interval 162 ms MUSE ECG QRSD Interval 86 ms MUSE ECG QT Interval 446 ms MUSE ECG QTC Interval 463 ms MUSE ECG P Palo 4 degrees MUSE ECG R Palo 58 degrees MUSE ECG T Wave Palo 22 degrees MUSE ECG Diagnosis Normal sinus rhythm MUSE ECG Diagnosis Cannot rule out Anterior infarct , age undetermined MUSE ECG Diagnosis Abnormal ECG MUSE ECG Diagnosis MUSE ECG Diagnosis Confirmed by Max Gregorio ([id number]) on 06/15/2025 3:47:28 PM MUSE ECG 06/15/2025 10:3 5 AM EDT 06/15/2025 3:47 PM EDT Mary INTERIANO ECG ORDERABLES Final Result MUSE ECG * Leticia auris Surveillance by PCR (06/14/2025 6:47 PM EDT) Leticia auris PCR Result Not Detected Not Detected 06/18/2025 5:43 AM EDT [facility] Swab (Axilla and Groin) Non-blood Collection / Unknown 06/14/2025 6:47 PM EDT 06/14/2025 7:49 PM EDT Narrative [facility] - 06/18/2025 5:43 AM EDT This PCR assay was developed and its performance characteristics determined by [facility] as appropriate for clinical purposes. This assay has not been cleared or approved by the FDA, but is performed in a CLIA regulated laboratory that is qualified to perform high-complexity testing. us Luis Angel Bee MD LAB MICROBIOLOGY - GENERA L ORDERABLES Final Result Performing Organization Address [facility] de Phone Number [facility] [address] [place] [address] * SARS CoV-2/COVID-19 by PCR - Rapid (06/14/2025 6:47 PM EDT) [facility] SARS CoV-2/COVID-1 9 RNA PCR Result Not Detected Not Detected 06/14/2025 8:35 PM EDT [facility] Swab Nasopharyngeal structure / Unknown Non-blood Collection / Unknown 06/14/2025 6:47 PM EDT 06/14/2025 7:49 PM EDT Narrative [facility] - 06/14/2025 8:35 PM EDT [...] L ORDERABLES Final Result Performing Organization Address [facility] de Phone Number [facility] [address] [place] [address] * (ABNORMAL) Hepatitis B Surface Antibody, Quantitative (06/14/2025 6:31 PM EDT) [facility] Hepatitis B Surface Antibody, Quantitative 34.47(H) NonReacti ve: <8, Grayzone: 8 - <12, Reactive: >= 12 mIU/mL 06/14/2025 8:18 PM EDT [facility] Comment: Reactive. Individual is considered immune to HBV infection. Blood Venous blood specimen / Unknown Venipuncture / Unknown 06/14/2025 6:31 PM EDT 06/14/2025 7:05 PM EDT Result Neto Bee MD LAB BLOOD ORDERABLES Nadia l Result [facility] [address] [place] [address] * Light Green Top (06/14/2025 6:31 PM EDT) Extra Hold for add-ons 06/14/2025 11:01 PM EDT [facility] Comment:Auto resulted. Blood Venous blood specimen / Unknown 06/14/2025 6:31 PM EDT 06/14/2025 8:12 PM EDT Result Neto Bee MD LAB BLOOD ORDERABLES Nadia l Result Performing Organization Address [facility] Co de Phone Number [facility] [address] [place] [address] * Red Top (06/14/2025 6:31 PM EDT) Extra Hold for add-ons 06/14/2025 11:01 PM EDT [facility] Comment:Auto resulted. Blood Venous blood specimen / Unknown 06/14/2025 6:31 PM EDT 06/14/2025 8:12 PM EDT Result Neto Bee MD LAB BLOOD ORDERABLES Nadia l Result Performing Organization Address City/[facility] Co de Phone Number [facility] [address] [place] [address] * HIV 1 & 2 Antibody/Antigen Screen (06/14/2025 6:31 PM EDT) HIV 1 & 2 Antibody/Antigen Screen Non Reactive Non Reactive 06/14/2025 7:45 PM EDT [facility] Comment:Screening for HIV 1 & 2 antibodies, and P24 antigen is NONREACTIVE. No confirmatory testing is required. Blood Venous blood specimen / Unknown Venipuncture / Unknown 06/14/2025 6:31 PM EDT 06/14/2025 7:05 PM EDT us Luis Angel Bee MD LAB BLOOD ORDERABLES Nadia l Result Performing Organization Address City/[facility]/[place] [address] * Hepatitis C Antibody (06/14/2025 6:31 PM EDT) Hepatitis C Antibody Negative Negative 06/14/2025 7:45 PM EDT [facility] Blood Venous blood specimen / Unknown Venipuncture / Unknown 06/14/2025 6:31 PM EDT 06/14/2025 7:05 PM EDT us Luis Angel Bee MD LAB BLOOD ORDERABLES Nadia l Result Performing Organization Address [facility] [place] [address] * Hepatitis B Core Total Antibody IgG,IgM (06/14/2025 6:31 PM EDT) [facility] Hepatitis B Core Total Antibody IgG,IgM Negative Negative 06/14/2025 8:18 PM EDT [facility] Blood Venous blood specimen / Unknown Venipuncture / Unknown 06/14/2025 6:31 PM EDT 06/14/2025 7:05 PM EDT us Luis Angel Bee MD LAB BLOOD ORDERABLES Nadia l Result Performing Organization Address City/[facility] [place] [address] * (ABNORMAL) Vitamin D 25 Hydroxy (06/14/2025 6:31 PM EDT) Only the most recent of2 resultswithin the time period is included. Pathologist [facility] Vitamin D 25 Hydroxy 10.8(L) 20.0 - 80.0 ng/mL 06/14/2025 8:19 PM EDT [facility] Blood Venous blood specimen / Unknown Venipuncture / Unknown 06/14/2025 6:31 PM EDT 06/14/2025 7:05 PM EDT Narrative [facility] - 06/14/2025 8:19 PM EDT Testing performed on [employer], standardized against NIST SRM [id number]. When testing [...] ORDERABLES Nadia l Result Performing Organization Address [facility] Co de Phone Number [facility] [address] [place] [address] * Hepatitis B Surface Antigen (06/14/2025 6:31 PM EDT) Pathologist [facility] Hepatitis B Surf Antigen Negative Negative 06/14/2025 8:18 PM EDT [facility] Blood Venous blood specimen / Unknown Venipuncture / Unknown 06/14/2025 6:31 PM EDT 06/14/2025 7:05 PM EDT us Luis Angel Bee MD LAB BLOOD ORDERABLES Nadia l Result [facility] [address] [place] [address] * Cytomegalovirus Antibody IgG (06/14/2025 6:31 PM EDT) CMV ANTIBODY IGG <0.20 <=0.59 U/mL 06/16/2025 9:07 PM EDT [facility] Blood Venous blood specimen / Unknown Venipuncture / Unknown 06/14/2025 6:31 PM EDT 06/14/2025 7:05 PM EDT Narrative [facility] BILL) - 06/16/2025 9:07 PM [...] laboratory at the same time. Performed By: [employer] [address] [place] [id number] Control Tower Radio Operator: Balwinder Wadsworth MD, PhD CLIA Number: [id number] Luis Angel Bee MD LAB BLOOD ORDERABLES Nadia l Result Performing Organization Address City/[facility]/ZIP Co de Phone Number [facility] ([place]) [address] [place] [address] * (ABNORMAL) APTT (06/14/2025 6:31 PM EDT) aPTT 47(H) 25 - 35 sec LAB COAGULATION METHOD 06/14/2025 7:23 PM EDT [facility] Blood Venous blood specimen / Unknown Venipuncture / Unknown 06/14/2025 6:31 PM EDT 06/14/2025 7:05 PM EDT us Luis Angel Bee MD LAB BLOOD ORDERABLES Nadia l Result [facility] [address] [place] [address] * (ABNORMAL) Protime-INR (06/14/2025 6:31 PM EDT) Only the most recent of5 resultswithin the time period is included. [facility] Prothrombin Time 25.9(H) 12.0 - 14.3 sec LAB COAGULATION METHOD 06/14/2025 7:23 PM EDT [facility] INR 2.3(H) 0.9 - 1.1 LAB COAGULATION METHOD 06/14/2025 7:23 PM EDT [facility] Blood Venous blood specimen / Unknown Venipuncture / Unknown 06/14/2025 6:31 PM EDT 06/14/2025 7:05 PM EDT Narrative [facility] - 06/14/2025 7:23 PM EDT OPTIMAL INR RANGES FOR PATIENT ON ORAL ANTICOAGULANT THERAPY Prevention of venous thromboembolism INR 2.0 to 3.0 In patients with heart disease: Atrial fibrillation INR 2.0 to 3.0 Valvular heart disease INR 2.0 to 3.0 Tissue heart valves INR 2.0 to 3.0 Mechanical prosthetic valves INR 2.5 to 3.5 Prevention of recurrent SC INR 2.5 to 3.5 us Luis Angel Bee MD LAB BLOOD ORDERABLES Nadia crockett Result [facility] [address] [place] [address] * (ABNORMAL) CBC and Differential (06/14/2025 6:31 PM EDT) [facility] WBC Count 7.95 3.70 - 10.30 10*3/uL LAB HEMATOLOGY METHOD 06/14/2025 7:24 PM EDT [facility] RBC Count 2.90(L) 4.60 - 6.10 10*6/uL LAB HEMATOLOGY METHOD 06/14/2025 7:24 PM EDT [facility] HGB 10.1(L) 13.7 - 17.5 g/dL LAB HEMATOLOGY METHOD 06/14/2025 7:24 PM EDT [facility] HCT 29.7(L) 40.0 - 51.0 % LAB HEMATOLOGY METHOD 06/14/2025 7:24 PM EDT [facility] Platelet Count 56(L) 155 - 369 10*3/uL LAB HEMATOLOGY METHOD 06/14/2025 7:24 PM EDT [facility] MCV 102(H) 79 - 98 fL LAB HEMATOLOGY METHOD 06/14/2025 7:24 PM EDT [facility] MCH 34.8(H) 26.0 - 32.0 pg LAB HEMATOLOGY METHOD 06/14/2025 7:24 PM EDT [facility] MCHC 34.0 30.7 - 35.5 g/dL LAB HEMATOLOGY METHOD 06/14/2025 7:24 PM EDT [facility] RDW 16.9(H) 11.5 - 14.5 % LAB HEMATOLOGY METHOD 06/14/2025 7:24 PM EDT [facility] MPV 11.5 8.8 - 12.5 fL LAB HEMATOLOGY METHOD 06/14/2025 7:24 PM EDT [facility] nRBC 0.0 <=0.0 per 100 WBCs LAB HEMATOLOGY METHOD 06/14/2025 7:24 PM EDT [facility] Differential Type Automated LAB HEMATOLOGY METHOD 06/14/2025 7:24 PM EDT [facility] Neutrophils % 56 % LAB HEMATOLOGY METHOD 06/14/2025 7:24 PM EDT [facility] Lymphocytes % 25 % LAB HEMATOLOGY METHOD 06/14/2025 7:24 PM EDT [facility] Monocytes % 13 % LAB HEMATOLOGY METHOD 06/14/2025 7:24 PM EDT [facility] Eosinophils % 4 % LAB HEMATOLOGY METHOD 06/14/2025 7:24 PM EDT [facility] Basophils % 1 % LAB HEMATOLOGY METHOD 06/14/2025 7:24 PM EDT [facility] Immature Granulocytes % 1 % LAB HEMATOLOGY METHOD 06/14/2025 7:24 PM EDT [facility] Neutrophils Absolute 4.56 1.60 - 6.10 10*3/uL LAB HEMATOLOGY METHOD 06/14/2025 7:24 PM EDT [facility] Lymphocytes Absolute 1.97 1.20 - 3.90 10*3/uL LAB HEMATOLOGY METHOD 06/14/2025 7:24 PM EDT [facility] Monocytes Absolute 1.03(H) 0.30 - 0.90 10*3/uL LAB HEMATOLOGY METHOD 06/14/2025 7:24 PM EDT [facility] Eosinophils Absolute 0.31 0.00 - 0.50 10*3/uL LAB HEMATOLOGY METHOD 06/14/2025 7:24 PM EDT [facility] Basophils Absolute 0.04 0.00 - 0.10 10*3/uL LAB HEMATOLOGY METHOD 06/14/2025 7:24 PM EDT [facility] Immature Granulocytes Absolute 0.04 0.00 - 0.06 10*3/uL LAB HEMATOLOGY METHOD 06/14/2025 7:24 PM EDT [facility] Blood Venous blood specimen / Unknown Venipuncture / Unknown 06/14/2025 6:31 PM EDT 06/14/2025 7:06 PM EDT Narrative [facility] - 06/14/2025 7:24 PM EDT Therapeutic decision making should be based on absolute values, rather than percentages. Luis Angel Bee MD LAB BLOOD ORDERABLES Nadia l Result [facility] [address] [place] [address] * Type and screen (06/14/2025 6:31 PM EDT) ABO/Rh A Positive 06/14/2025 6:13 PM EDT BLOOD BANK Antibody Screen Negative 06/14/2025 6:13 PM EDT BLOOD BANK Specimen Expiration 06/17/2025 23:59 06/14/2025 6:13 PM EDT BLOOD BANK Blood Venous blood specimen / Unknown Venipuncture / Unknown 06/14/2025 6:31 PM EDT 06/14/2025 7:08 PM EDT Luis Angel Bee MD LAB BLOOD BANK TEST ORDER MARYA Final Result Performing Organization Address City/[facility]/ZIP Co de Phone Number BLOOD BANK [address] [place] [address], * (ABNORMAL) Comprehensive metabolic panel (06/14/2025 6:31 PM EDT) Only the most recent of5 resultswithin the time period is included. Glucose, Plasma 86 74 - 99 mg/dL 06/14/2025 7:35 PM EDT [facility] BUN, Plasma 21 8 - 23 mg/dL 06/14/2025 7:35 PM EDT [facility] Creatinine, Plasma 1.28(H) 0.70 - 1.20 mg/dL 06/14/2025 7:35 PM EDT [facility] BUN/Creatinine Ratio 16 06/14/2025 7:35 PM EDT [facility] Sodium, Plasma 135(L) 136 - 145 mmol/L 06/14/2025 7:35 PM EDT [facility] Potassium, Plasma 3.9 3.6 - 4.9 mmol/L 06/14/2025 7:35 PM EDT [facility] Chloride, Plasma 104 97 - 107 mmol/L 06/14/2025 7:35 PM EDT [facility] CO2, Plasma 24 22 - 29 mmol/L 06/14/2025 7:35 PM EDT [facility] Anion Gap 7 6 - 16 mmol/L 06/14/2025 7:35 PM EDT [facility] Total Calcium, Plasma 7.6(L) 8.9 - 10.2 mg/dL 06/14/2025 7:35 PM EDT [facility] Total Protein 5.6(L) 6.3 - 7.9 g/dL 06/14/2025 7:35 PM EDT [facility] Albumin, Plasma 1.8(L) 3.5 - 5.2 g/dL 06/14/2025 7:35 PM EDT [facility] AST, Plasma 38 10 - 50 U/L 06/14/2025 7:35 PM EDT [facility] ALT, Plasma 31 10 - 50 U/L 06/14/2025 7:35 PM EDT [facility] Alkaline Phosphatase, Plasma 178(H) 40 - 115 U/L 06/14/2025 7:35 PM EDT [facility] Total Bilirubin, Plasma 6.6(H) 0.2 - 1.1 mg/dL 06/14/2025 7:35 PM EDT [facility] eGFRcr 62.5 mL/min/1.7 3m*2 06/14/2025 7:35 PM EDT [facility] Comment:Reported eGFRcr in m L/min/1.73m2 is based the CKD-EPI 2020 equation that does not use a race coefficient. Blood Venous blood specimen / Unknown Venipuncture / Unknown 06/14/2025 6:31 PM EDT 06/14/2025 7:05 PM EDT us Luis Angel Bee MD LAB BLOOD ORDERABLES Nadia bon Result [facility] [address] [place] [address] * CT Angio Cardiac Coronary Arteries (06/13/2025 [...] Martins MD on 06/13/2025 10:38 PM Zarina M Godman PA IMG CT PROCEDURES Final Result * ECHO, ADULT TRANSTHORACIC COMPLETE (06/13/2025 11:34 [...] Zarina INTERIANO CV ECHO PROCEDURES Final Result * US Liver Screen (06/13/2025 10:34 AM [...] are based on Ultrasound LI-RADS version 2017. [email or web address] CRITICAL RESULT: No. COMMUNICATION: Per [...] recommendations are based on UltrasoundLI-RADS version 2017. [email or web address] CRITICAL RESULT: No. COMMUNICATION: Per this written report. By electronically signing this report, I, the attending physician, [email or web address] I have personally reviewed the images/data for the aboveexamination(s) and agree with the final edited report. Drafted by Tye Kenney MD on 06/13/2025 2:04 PM Final report signed by Arturo Wasserman MD on 06/13/2025 2:49 PM us Portia Maguire MD IMG US PROCEDURES Final R esult * XR Chest 2 Views (06/13/2025 7:21 [...] Zarina INTERIANO IMG XR PROCEDURES Final Result * (ABNORMAL) Bone Specific Alkaline Phosphatase (06/13/2025 6:50 AM EDT) Bone Specific Alkaline Phosphatase 36.4(H) 6.5 - 20.1 ug/L 06/13/2025 9:09 AM EDT [facility] Comment:Test performed at [facility], Special [facility] Laboratory. Blood Venous blood specimen / Unknown Venipuncture / Unknown 06/13/2025 6:50 AM EDT 06/13/2025 7:24 AM EDT us Moustapha Katz MD LAB REF LAB BLOOD AND FLUID OR D Final Result [facility] [address] [place] [address] * Pain Management, Quantitative Urine Drug Testing (06/13/2025 6:50 AM EDT) [place] Alprazolam <20 <20 ng/mL 06/16 10:13 AM EDT [facility] [place] Midazolam <20 <20 ng/mL 2024 10:13 AM EDT [facility] [place] Triazolam <20 <20 ng/mL 2024 10:13 AM EDT [facility] Alprazolam <10 <10 ng/mL 06/16/2025 10:13 AM EDT [facility] Aminoclonazepam <20 <20 ng/mL 10:13 AM EDT [facility] Amphetamine <50 <50 ng/mL 06/16/2025 10:13 AM EDT [facility] Benzoylecgonine <50 <50 ng/mL 10:13 AM EDT [facility] Buprenorphine <10 <10 ng/mL 06/16/2025 10:13 AM EDT [facility] Buprenorphine Glucuronide <50 <50 ng/mL 06/16/2025 10:13 AM EDT [facility] Butalbital <50 <50 ng/mL 06/16/2025 10:13 AM EDT [facility] 9 Carboxy THC <10 <10 ng/mL 06/16/2025 10:13 AM EDT [facility] 9 Carboxy THC Glucuronide <25 <25 ng/mL 06/16/2025 10:13 AM EDT [facility] Clonazepam <10 <10 ng/mL 06/16/2025 10:13 AM EDT [facility] Codeine <50 <50 ng/mL 06/16/2025 10:13 AM EDT [facility] Codeine Glucuronide <50 <50 ng/mL 06/16 10:13 AM EDT [facility] Cyclobenzaprine <50 <50 ng/mL 10:13 AM EDT [facility] Desmethyl Tramadol <50 <50 ng/mL 2024 10:13 AM EDT [facility] Diazepam <10 <10 ng/mL 06/16/2025 10:13 AM EDT [facility] EDDP - Methadone Metabolite <50 <50 ng/mL 06/16/2025 10:13 AM EDT [facility] Fentanyl <1 <1 ng/mL 06/16/2025 10:13 AM EDT [facility] Hydrocodone <50 <50 ng/mL 06/16/2025 10:13 AM EDT [facility] Hydromorphone <50 <50 ng/mL 06/16/2025 10:13 AM EDT [facility] Hydromorphone Glucuronide <50 <50 ng/mL 06/16/2025 10:13 AM EDT [facility] Lorazepam <20 <20 ng/mL 06/16/2025 10:13 AM EDT [facility] Lorazepam Glucuronide <50 <50 ng/mL 06/16/2025 10:13 AM EDT [facility] MDA <50 <50 ng/mL 06/16/2025 10:13 AM EDT [facility] MDMA <50 <50 ng/mL 06/16/2025 10:13 AM EDT [facility] Meperidine <50 <50 ng/mL 06/16/2025 10:13 AM EDT [facility] Methadone <50 <50 ng/mL 06/16/2025 10:13 AM EDT [facility] Methamphetamine <50 <50 ng/mL 10:13 AM EDT [facility] Methylphenidate <50 <50 ng/mL 10:13 AM EDT [facility] 6 Monoacetyl morphine <10 <10 ng/mL 06/16/2025 10:13 AM EDT [facility] Morphine <50 <50 ng/mL 06/16/2025 10:13 AM EDT [facility] Morphine Glucuronide <50 <50 ng/mL 12/2024 10:13 AM EDT [facility] Naloxone <50 <50 ng/mL 06/16/2025 10:13 AM EDT [facility] Naloxone Glucuronide <50 <50 ng/mL 12/2024 10:13 AM EDT [facility] Norbuprenorphine <10 <10 ng/mL 06/16/20 10:13 AM EDT [facility] Norbuprenorphine Glucuronide <50 <50 ng/mL 06/16/2025 10:13 AM EDT [facility] Nordiazepam <20 <20 ng/mL 06/16/2025 10:13 AM EDT [facility] Norfentanyl <2 <2 ng/mL 06/16/2025 10:13 AM EDT [facility] Normeperidine <50 <50 ng/mL 06/16/2025 10:13 AM EDT [facility] PCP Quant, Ur <50 <50 ng/mL 06/16/2025 10:13 AM EDT [facility] Phenobarbital <50 <50 ng/mL 06/16/2025 10:13 AM EDT [facility] Oxazepam <20 <20 ng/mL 06/16/2025 10:13 AM EDT [facility] Oxazepam Glucuronide <50 <50 ng/mL 12/2024 10:13 AM EDT [facility] Oxycodone <50 <50 ng/mL 06/16/2025 10:13 AM EDT [facility] Oxymorphone <50 <50 ng/mL 06/16/2025 10:13 AM EDT [facility] Oxymorphone Glucuronide <50 <50 ng/mL 06/16/2025 10:13 AM EDT [facility] Secobarbital <50 <50 ng/mL 06/16/2025 10:13 AM EDT [facility] Tramadol <50 <50 ng/mL 06/16/2025 10:13 AM EDT [facility] Temazepam <20 <20 ng/mL 06/16/2025 10:13 AM EDT [facility] Temazepam Glucuronide <50 <50 ng/mL 06/16/2025 10:13 AM EDT [facility] Urine Urine specimen obtained by clean catch procedure / Unknown Non-blood Collection / Unknown 06/13/2025 6:50 AM EDT 06/13/2025 7:26 AM EDT Narrative [facility] - 06/16/2025 10:13 AM EDT This report is intended for use in clinical monitoring or management of patients. It is NOT intended for use in employment-related drug testing. For pain management, the absence of expected drug(s) and/or drug metabolite(s) may indicate non-compliance, inappropriate timing of specimen collection relative to drug administration, poor drug absorption, or limitations of testing. Interpretive questions should be directed to the laboratory. Test performed by LC-MS/MS at the [facility]. This test was developed and its performance characteristics determined by [facility]. It has not been cleared or approved by the FDA. The laboratory is regulated under CLIA as qualified to perform high-complexity testing. This test is used for clinical purposes. Zarina INTERIANO LAB URINE ORDERABLES Final Resu lt [facility] [address] [place] [address] * C-Telopeptide (06/13/2025 6:50 AM EDT) C Telopeptide Beta Cross Linked Serum Result 397 132 - 752 pg/mL 06/14/2025 9:07 PM EDT [facility] ([facility]) Blood Venous blood specimen / Unknown Venipuncture / Unknown 06/13/2025 6:50 AM EDT 06/13/2025 7:25 AM EDT Narrative [facility] BILL) - 06/14/2025 9:07 PM EDT REFERENCE INTERVAL: C-Telopeptide, [id number], Serum Access complete set of age- and/or gender-specific reference intervals for this test in the [facility] Test Directory ([employer]). Performed By: [facility] [address] [place] [id number] [employer] Tower Radio Operator: Balwinder Wadsworth MD, PhD CLIA Number: [id number] Moustapha Katz MD LAB BLOOD ORDERABLES Final Res ult [facility] ([facility]) [address] [place] [address] * Nicotine Cotinine Metabolite (06/13/2025 6:50 AM EDT) NICOTINE <5 <5 ng/mL 06/14/2025 11:39 AM EDT [facility] Cotinine <5 <5 ng/mL 06/14/2025 11:39 AM EDT [facility] Blood Venous blood specimen / Unknown Venipuncture / Unknown 06/13/2025 6:50 AM EDT 06/13/2025 7:25 AM EDT Narrative [facility] - 06/14/2025 11:39 AM EDT Testing performed by LC-MS/MS at the [facility] Special Chemistry/Toxicology Laboratory. This test was developed and its performance characteristics determined by [facility]. This assay has not been cleared by the FDA. The laboratory is regulated under CLIA as qualified to perform high-complexity testing. This test is used for clinical purposes. Zarina INTERIANO LAB BLOOD ORDERABLES Final Resu lt Performing Organization Address City/[facility]/ZIP Co de Phone Number [facility] [address] [place] [address] * Osteocalcin by ECIA (06/13/2025 6:50 AM EDT) OSTEOCALCIN BY ECIA 8 8 - 36 ng/mL 06/15/2025 12:10 AM EDT [facility] ([facility]) Blood Venous blood specimen / Unknown Venipuncture / Unknown 06/13/2025 6:50 AM EDT 06/13/2025 7:58 AM EDT Narrative [facility] ([employer] [employer] [facility]) - 06/15/2025 12:10 AM EDT INTERPRETIVE INFORMATION: Osteocalcin by ECIA In patients with renal failure, the osteocalcin result may be directly elevated, due to impaired clearance, and/or indirectly elevated due to renal osteodystrophy. Access complete set of age- and/or gender-specific reference intervals for this test in the [facility] Test Directory ([employer]). Performed By: [facility] [address] [place] [address] Control Tower Radio Operator: Balwinder Wadsworth MD, PhD CLIA Number: [id number] Moustapha Katz MD LAB BLOOD ORDERABLES Final Res ult Performing Organization Address City/[facility] Co de Phone Number [facility] ([place]) [address] [place] [address] * Alcohol Urine (06/13/2025 6:50 AM EDT) Alcohol Urine Negative Negative 06/13/2025 12:50 PM EDT [facility] Urine Urine specimen obtained by clean catch procedure / Unknown Non-blood Collection / Unknown 06/13/2025 6:50 AM EDT 06/13/2025 7:27 AM EDT Narrative [facility] - 06/13/2025 12:50 PM EDT The correlation between urine and serum ethanol concentration is highly variable. Test performed by Gas Chromatography at the [facility]. This test was developed and its performance characteristics determined by [facility]. It has not been cleared or approved by the FDA.The laboratory is regulated under CLIA as qualified to perform high-complexity testing. This test is used for clinical purposes only. The correlation between urine and serum ethanol concentration is highly variable. Test performed by Gas Chromatography at the [facility]. This test was developed and its performance characteristics determined by [facility]. It has not been cleared or approved by the FDA.The laboratory is regulated under CLIA as qualified to perform high-complexity testing. This test is used for clinical purposes only. us Zarina INTERIANO LAB URINE ORDERABLES Final Resu lt Performing Organization Address [facility]/ZIP Co de Phone Number [facility] [address] [place] [address] * Vitamin D 1,25 Dihydroxy (06/13/2025 6:50 AM EDT) VITAMIN D, 1, 25-DIHYDROXY 43.7 19.9 - 79.3 pg/mL 06/13/2025 12:37 PM EDT [facility] Blood Venous blood specimen / Unknown Venipuncture / Unknown 06/13/2025 6:50 AM EDT 06/13/2025 7:25 AM EDT us Moustapha Katz MD LAB BLOOD ORDERABLES Final Res ult [facility] [address] [place] [address] * (ABNORMAL) Comprehensive Urine Drug Screening, Qualitative Assay, >= 27 Drug Classes (56:50 AM EDT) Acetaminophen Negative Negative 06/14/2025 9:02 AM EDT [facility] Alprazolam Negative Negative 06/14/2025 9:02 AM EDT [facility] Amantadine Negative Negative 06/14/2025 9:02 AM EDT [facility] Amitriptyline Negative Negative 06/14/2025 9:02 AM EDT [facility] Amphetamine Negative Negative 06/14/2025 9:02 AM EDT [facility] Atenolol Negative Negative 06/14/2025 9:02 AM EDT [facility] Benzoylecgonine Negative Negative 9:02 AM EDT [facility] Bisoprolol Negative Negative 06/14/2025 9:02 AM EDT [facility] Bupropion Negative Negative 06/14/2025 9:02 AM EDT [facility] Butalbital Negative Negative 06/14/2025 9:02 AM EDT [facility] Carbamazepine Negative Negative 06/14/2025 9:02 AM EDT [facility] Carisoprodol Negative Negative 06/14/2025 9:02 AM EDT [facility] Chlorpheniramine Negative Negative 06/14/20 9:02 AM EDT [facility] Citalopram Negative Negative 06/14/2025 9:02 AM EDT [facility] Clindamycin Negative Negative 06/14/2025 9:02 AM EDT [facility] Clonidine Negative Negative 06/14/2025 9:02 AM EDT [facility] Clopidogrel / Ticlopidine Negative Negative 06/14/2025 9:02 AM EDT [facility] Cocaethylene Negative Negative 06/14/2025 9:02 AM EDT [facility] Cocaine Negative Negative 06/14/2025 9:02 AM EDT [facility] Codeine Negative Negative 06/14/2025 9:02 AM EDT [facility] Cyclobenzaprine Negative Negative 9:02 AM EDT [facility] Desvenlafaxine Negative Negative 06/14/2025 9:02 AM EDT [facility] Dextromethorphan Negative Negative 06/14/20 9:02 AM EDT [facility] Diazepam Negative Negative 06/14/2025 9:02 AM EDT [facility] Diltiazem Negative Negative 06/14/2025 9:02 AM EDT [facility] Diphenhydramine Negative Negative 9:02 AM EDT [facility] Doxepine Negative Negative 06/14/2025 9:02 AM EDT [facility] Doxylamine Negative Negative 06/14/2025 9:02 AM EDT [facility] EDDP-Methadone metabolite Negative Negative 06/14/2025 9:02 AM EDT [facility] Fentanyl Negative Negative 06/14/2025 9:02 AM EDT [facility] Fluconazole Negative Negative 06/14/2025 9:02 AM EDT [facility] Fluoxetine Negative Negative 06/14/2025 9:02 AM EDT [facility] Guaifenesin Negative Negative 06/14/2025 9:02 AM EDT [facility] Haloperidol Negative Negative 06/14/2025 9:02 AM EDT [facility] Heroin/6-MARY Negative Negative 06/14/2025 9:02 AM EDT [facility] Hydrocodone Negative Negative 06/14/2025 9:02 AM EDT [facility] Hydroxyzine / Cetirizine metabolite Negative Negative 06/14/2025 9:02 AM EDT [facility] Ibuprofen Negative Negative 06/14/2025 9:02 AM EDT [facility] Imipramine Negative Negative 06/14/2025 9:02 AM EDT [facility] Ketamine Negative Negative 06/14/2025 9:02 AM EDT [facility] Labetolol Negative Negative 06/14/2025 9:02 AM EDT [facility] Lamotrigine Negative Negative 06/14/2025 9:02 AM EDT [facility] Levetiracetam Negative Negative 06/14/2025 9:02 AM EDT [facility] Lidocaine Negative Negative 06/14/2025 9:02 AM EDT [facility] MDA Negative Negative 06/14/2025 9:02 AM EDT [facility] MDMA Negative Negative 06/14/2025 9:02 AM EDT [facility] Memantine Negative Negative 06/14/2025 9:02 AM EDT [facility] Meperidine Negative Negative 06/14/2025 9:02 AM EDT [facility] Meprobamate Negative Negative 06/14/2025 9:02 AM EDT [facility] Metaxalone Negative Negative 06/14/2025 9:02 AM EDT [facility] Methamphetamine Negative Negative 9:02 AM EDT [facility] Methocarbamol Negative Negative 06/14/2025 9:02 AM EDT [facility] Methylecgonine Negative Negative 06/14/2025 9:02 AM EDT [facility] Metoclopramide Negative Negative 06/14/2025 9:02 AM EDT [facility] Metoprolol Negative Negative 06/14/2025 9:02 AM EDT [facility] Metronidazole Negative Negative 06/14/2025 9:02 AM EDT [facility] Midazolam Negative Negative 06/14/2025 9:02 AM EDT [facility] Midazolam Metabolite Negative Negative 06/14/2025 9:02 AM EDT [facility] Mirtazapine Negative Negative 06/14/2025 9:02 AM EDT [facility] Misc Test Result Negative Negative 06/14/20 9:02 AM EDT [facility] Naproxen Negative Negative 06/14/2025 9:02 AM EDT [facility] Nefazodone Negative Negative 06/14/2025 9:02 AM EDT [facility] Norfentanyl Negative Negative 06/14/2025 9:02 AM EDT [facility] Nortriptyline Negative Negative 06/14/2025 9:02 AM EDT [facility] Ordanstron Negative Negative 06/14/2025 9:02 AM EDT [facility] Oxcarbazepine Negative Negative 06/14/2025 9:02 AM EDT [facility] Oxycodone Negative Negative 06/14/2025 9:02 AM EDT [facility] Paroxethine Negative Negative 06/14/2025 9:02 AM EDT [facility] Phenobarbital Negative Negative 06/14/2025 9:02 AM EDT [facility] Phentermine Negative Negative 06/14/2025 9:02 AM EDT [facility] Phenytoin Negative Negative 06/14/2025 9:02 AM EDT [facility] Primidone Negative Negative 06/14/2025 9:02 AM EDT [facility] Promethazine Negative Negative 06/14/2025 9:02 AM EDT [facility] Propofol Negative Negative 06/14/2025 9:02 AM EDT [facility] Propranolol Negative Negative 06/14/2025 9:02 AM EDT [facility] Quetiapine Negative Negative 06/14/2025 9:02 AM EDT [facility] Quinine Negative Negative 06/14/2025 9:02 AM EDT [facility] Rantidine Negative Negative 06/14/2025 9:02 AM EDT [facility] Sertraline Negative Negative 06/14/2025 9:02 AM EDT [facility] Spironolactone Positive(A) Negative 9:02 AM EDT [facility] Tizanidine Negative Negative 06/14/2025 9:02 AM EDT [facility] Topiramate Negative Negative 06/14/2025 9:02 AM EDT [facility] Tramadol Negative Negative 06/14/2025 9:02 AM EDT [facility] Trazadone/ Trazadone metabolite Negative Negative 06/14/2025 9:02 AM EDT [facility] Trimethoprim Negative Negative 06/14/2025 9:02 AM EDT [facility] Valproic Acid Negative Negative 06/14/2025 9:02 AM EDT [facility] Venlafaxine Negative Negative 06/14/2025 9:02 AM EDT [facility] Verapamil Negative Negative 06/14/2025 9:02 AM EDT [facility] Zolpidem Negative Negative 06/14/2025 9:02 AM EDT [facility] Xylazine Negative Negative 06/14/2025 9:02 AM EDT [facility] Urine Urine specimen obtained by clean catch procedure / Unknown Non-blood Collection / Unknown 06/13/2025 6:50 AM EDT 06/13/2025 7:26 AM EDT us Zarina INTERIANO LAB URINE ORDERABLES Final Resu lt [facility] [address] [place] [address] * (ABNORMAL) CBC w/o differential (06/13/2025 6:50 AM EDT) Only the most recent of4 resultswithin the time period is included. WBC Count 8.26 3.70 - 10.30 10*3/uL LAB HEMATOLOGY METHOD 06/13/2025 8:36 AM EDT [facility] RBC Count 3.50(L) 4.60 - 6.10 10*6/uL LAB HEMATOLOGY METHOD 06/13/2025 8:36 AM EDT [facility] HGB 12.1(L) 13.7 - 17.5 g/dL LAB HEMATOLOGY METHOD 06/13/2025 8:36 AM EDT [facility] [facility] HCT 36.3(L) 40.0 - 51.0 % LAB HEMATOLOGY METHOD 06/13/2025 8:36 AM EDT [facility] Platelet Count 65(L) 155 - 369 10*3/uL LAB HEMATOLOGY METHOD 06/13/2025 8:36 AM EDT [facility] LAB MCV 104(H) 79 - 98 fL LAB HEMATOLOGY METHOD 06/13/2025 8:36 AM EDT [facility] LAB MCH 34.6(H) 26.0 - 32.0 pg LAB HEMATOLOGY METHOD 06/13/2025 8:36 AM EDT [facility] MCHC 33.3 30.7 - 35.5 g/dL LAB HEMATOLOGY METHOD 06/13/2025 8:36 AM EDT [facility] LAB RDW 17.6(H) 11.5 - 14.5 % LAB HEMATOLOGY METHOD 06/13/2025 8:36 AM EDT [facility] LAB MPV 11.7 8.8 - 12.5 fL LAB HEMATOLOGY METHOD 06/13/2025 8:36 AM EDT [facility] nRBC 0.0 <=0.0 per 100 WBCs LAB HEMATOLOGY METHOD 06/13/2025 8:36 AM EDT [facility] Blood Venous blood specimen / Unknown Venipuncture / Unknown 06/13/2025 6:50 AM EDT 06/13/2025 7:26 AM EDT us Zarina INTERIANO LAB BLOOD ORDERABLES Final Resu lt [facility] [address] [place] [address] * Phosphorus, Plasma (06/13/2025 6:50 AM EDT) Phosphorus, Plasma 3.5 2.5 - 4.5 mg/dL 06/13/2025 7:56 AM EDT [facility] LAB Blood Venous blood specimen / Unknown Venipuncture / Unknown 06/13/2025 6:50 AM EDT 06/13/2025 7:25 AM EDT us Moustapha Katz MD LAB BLOOD ORDERABLES Final Res ult [facility] [address] [place] [address] * Dexa Bone Density (06/08/2025 8:35 AM EDT) Anatomical Region Laterality Modality L-spine Radiographic Liseth ging Narrative 06/17/2025 10:07 PM EDT [facility] [address] [place] [address] DXA Bone Densitometry Report: [06/08/2025] BMD test performed using the Xuba DXA System (analysis version: 14.10) manufactured by [employer]. REFERRING PROVIDER: Dr. Moustapha Katz MD CLINICAL [...] of change in BMD). Moustapha Katz MD [facility] DXA PROCEDURES Final Resul t * Hemoglobin, Blood (03/26/2025) External Hemoglobin (Hgb) 11.70 Blood Venous blood specimen / Unknown 03/26/2025 [facility] Provider MD LAB BLOOD ORDERABLES Naida l Result * Hematocrit, Blood (03/26/2025) External Hematocrit (Hct) 34.1 Blood Venous blood specimen / Unknown 03/26/2025 Result [facility] Provider MD LAB BLOOD ORDERABLES Nadia l Result * Ferritin, Serum (03/26/2025) External Ferritin 77.9 Blood Venous blood specimen / Unknown 03/26/2025 Result [facility] Provider MD LAB BLOOD ORDERABLES Edit ed Result - Final from Last 3 Months Insurance [employer] [id number] [address] [place] [address] NANCY Care Teams Education Officer Relationship Specialty Start Date End Date Chris Medel MD [address] [place] [address] PCP - General 03/14/25 Ruma Hernández APRN 17[address] [facility] [address] [place] [address] Referring Physician Gastroenterology 07/30/23
--- OUTSIDE RECORDS SUMMARY | 2025-06-18 09:30 | XMS_ITS | Encounter Summary ---
Author Organization Healthcare Address [address] [place] [address] Care Team Providers Care Manager Managed Backup Services Name Role Phone Ruma Hernández DRIER OPERATOR HELPER Unavailable [phone] Chris Medel MD Primary Care Provider [phone] Encounter Details Date Type Department Care Team (Latest Contact Info) Description 06/08/2025 Travel Social History Tobacco Use Types Packs/Day [...] often do you attend chur ch or scientologist services? More than 4 times [...] Questionnaire-2 Score 0 06/08/2025 [facility] - Occupational Stress Questionnaire Answer Date [...] the money to buy more. Never true 04/07/20 25 Within the past 12 months, t [...] any time in the past 12 m [facility], were you homeless or living [...] Description 07/11/2025 9:00 AM EDT Clinical Support [facility] [address] [facility] [address] [place] [address] 07/11/2025 10:30 AM EDT Office Visit [facility] [address] [facility] [address] [place] [address] Portia Maguire MD [address] [facility] [address] [place] [address] 10/03/2025 12:45 PM EST Office Visit Medical Office Building Urology [address] [facility], [address] [place] [address] Suhail Brock MD [address] [facility] [address] [place] [address] 10/18/2025 4:20 PM EST Office Visit [facility] [address] [facility], [address] [place] [address] Moustapha Katz MD [address] [facility] [address] [place] [address] documented as of this encounter [...] as of this encounter Care Teams Manager Managed Backup Services Relationship Specialty Start Date End Date Chris Medel MD [address] [place] [address] PCP - General 03/14/25 Ruma Hernández APRN [address] [place] [address] [address] Referring Physician Gastroenterology 07/30/23 documented as of this encounter
--- NOTE | 2025-06-18 09:35 | PC.NURSE ---
0935-collected labs via venipuncture stick in right ac with butterfly needle;pt to wait on results for possible therapeutic phlebotomy if hbg >11 and ferritin >100
[2025-06-18 09:43] LABS: Hematocrit 31.7 % (42.0-52.0); Hemoglobin 11.0 g/dL (14.1-18.0)
[2025-06-18 10:32] LABS: Ferritin 171 ng/ml (17.9-464)
--- NOTE | 2025-06-18 14:40 | PC.NURSE ---
1035-pt states he refuses to do phlebotomy with his hgb only 11
== END 2025-06-18 10:35 | disposition home or self-care (01) ==
LOC: INF 09:26
PROVIDERS: PCP Family Medicine; Visit Provider Internal Medicine
DX: K72.90 Hepatic failure, unspecified without coma (principal)
CPT/HCPCS: 36415; 82728; 85014; 85018

== ENCOUNTER 2025-06-20 07:37 | Outpatient (CLI) | payer BC, SELFPAY ==
--- OUTSIDE RECORDS SUMMARY | 2023-08-27 08:34 | XMS_ITS | Encounter Summary ---
[facility] [address] [place] [address] Care Team Providers Care Stacker Name Role Phone Karon Urban Jc DO Primary Care Provider +1 -[phone] Encounter Details Date Type Department Care Team (Late st Contact Info) Description 08/27/2023 8:34 AM EDT Hospital Encounter [facility] PULMONARY & CRITICAL CARE MEDICINE [address] [place] [phone] Social History Tobacco Use Types Packs/Day [...] on filedocumented in this encounter Care Teams Stacker Relationship Specialty Start Date End Date Urban Brantley DO [address] [place] [address] [place] [address] PCP - General Internal Medicine 03/22/23 documented as of this encounter
--- OUTSIDE RECORDS SUMMARY | 2025-06-08 08:35 | XMS_ITS | Encounter Summary ---
Author Organization Healthcare Address [address] [place] [address] Care Team Providers Care Slp Name Role Phone Ruma Hernández BARGE PILOT Unavailable [phone] Chris Medel MD Primary Care Provider [phone] Encounter Details Date Type Department Care Team (Latest Contact Info) Description 06/08/2025 8:35 AM EDT - 06/08/2025 11:59 PM EDT Hospital Encounter [facility] [address], [address] [place] [address] Other osteoporosis without current pathological [...] week 02/19/2025 How often do you attend [facility] or yazdanism services? More than 4 times [...] any time in the past 12 m [facility], were you homeless or living in a care home (including now)? No 02/19/2025 Humiliation, Afraid, Rape, and Kick questionnair e [...] and heating? Not hard at all 06/15/2025 [facility] of Occupat ional Health - Occupational Stress [...] any time in the past 12 m [facility], were you homeless or living in a care home (including now)? No 06/15/2025 CAGE ASSESSMENT Answer [...] drink first t luisa in the morning (EYE-ONLINE EDITOR) to steady your nerves or to get rid of a hangover? 0 06/14/2025 CAGE Questionnaire Score 0 025 Utilities Answer Date Recorded In the past 12 months has th [employer], gas, oil, or water [employer] threatened to shut off services in your [...] Assessment Author 0 06/15/2025 9:39 AM EDT iFli Gutiérrez RN * Question Answer Date of [...] things Not at all 06/08/2025 9:04 AM EDT Mellissa Martines Feeling down, depressed, or hopeless [...] Chapito Jarrett 6. Suicidal Behavior (Lifetime) No 9:23 PM EDT Chapito Jarrett documented as of this encounter Medications at Time of Discharge calcitriol (Rocaltrol) 0.25 MCG capsule Take 1 capsule by mouth daily. Take 1 capsule daily only on 5 days in the week ( Wednesday to Wednesday only) 24 capsule 5 06/10/2025 Calcium-Vitamin D (CALTRATE 600 PLUS-VIT D PO) Take 600 mg by mouth 2 times a day. carvedilol (Coreg) 3.125 MG tabletIndications :Cirrhosis of liver with ascites, unspecified hepatic cirrhosis type (CMS/HCC) Take 1 tablet (3.125 mg) by mouth 2 (two) times a day with meals. 60 tablet 11 09/13/2024 ergocalciferol (Vitamin D-2) 1.25 MG (76168 UT) capsule Take 1 capsule by mouth [...] by mouth 2 times a day. 01/15/2025 documented as of this encounter Plan of Treatment Upcoming Encounters Date Type Department Care Team (Late st Contact Info) Description 07/11/2025 9:00 AM EDT Clinical Support [facility] [place] [address] [place] [address] 07/11/2025 9:30 AM EDT Social Work [facility] [address] [place] [address] [place] [address] 07/11/2025 10:30 AM EDT Office Visit [facility] [address] [place] [address] Portia Maguire MD [address] [facility] [address] [place] [address] 10/03/2025 12:45 PM EST Office Visit Medical Office Building Urology [address], [address] [place] [address] Suhail Brock MD [address] [place] [address] 10/18/2025 4:20 PM EST [facility] [address], [address] [place] [address] Moustapha Katz MD [address] [place] [address] documented as of this encounter Procedures Procedure Name Priority Date/Time Associated Diagnosis Comments DEXA BONE DENSITY Routine 06/08/2025 8:3 5 AM EDT Other osteoporosis without current pathological fracture documented in this encounter Results * Dexa Bone Density (06/08/2025 8:35 AM EDT) Anatomical Region Laterality Modality L-spine Radiographic Liseth ging Narrative 06/17/2025 10:07 PM EDT [facility] - [facility] [address] [address], [place] [address] DXA Bone Densitometry Report: [06/08/2025] BMD test performed using the [employer] DXA System (analysis version: 14.10) manufactured by [employer]. REFERRING PROVIDER: Dr. Moustapha Katz MD CLINICAL [...] comparison and calculation of change in BMD). Moustapha Katz MD IMG DXA PROCEDURES Final [...] documented as of this encounter Care Teams Slp Relationship Specialty Start Date End Date Chris Medel MD [address] [place] [address] PCP - General 03/14/25 Ruma Hernández APRN [address] [facility] [address] [place] [address] Referring Physician Gastroenterology 07/30/23 documented as of this encounter
--- OUTSIDE RECORDS SUMMARY | 2025-06-08 12:20 | XMS_ITS | Encounter Summary ---
Author Organization [facility] Address [address] [place] [address] Care Team Providers Care Journeyman Welder Name Role Phone Ruma Hernández CONTROL OPERATOR FLOW COAT Unavailable [phone] Chris Medel MD Primary Care Provider [phone] Reason for Referral * Consultation (Routine) - Authorized Specialty Diagnoses / Procedures Referred By Gianna reyes Referred To Contact Diagnoses Age-related osteoporosis without current pathological fracture Moustapha Katz MD [address] [place] [address] [place] [address] Phone: tel: fax: Referral ID Status Reason Start Date Expiration Date V isits Requested Visits Authorized [id number] Authorized 06/08/2025 12/08/2026 1 1 Reason for Visit * Reason Comments Follow-up Encounter Details Date Type Department Care Team ([facility] st Contact Info) Description 06/08/2025 12:20 PM EDT Office Visit [facility] [facility] [address] [place] [address] Moustapha Katz MD [address] [place] [address] Age-related osteoporosis without current pathological [...] do you attend [facility] or caodaism services? More than 4 times per year 02/19/2025 Do you belong to any clubs o r organizations such as mu-ism groups, unions, fraternal or athletic groups, or [...] Recorded Patient Health Questionnaire-2 Score 0 06/08/2025 [facility] of Occupat ional 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, and need for continued [...] Expiration Date: 12/12/2026 [facility] [1] Calcium, Random, Urine Standing Status: Future Expected Date: 09/17/2025 Expiration Date: 12/12/2026 Release to patient in [facility]: Immediate [1] Creatinine, Random, Urine Standing Status: Future Expected Date: 09/17/2025 Expiration Date: 12/12/2026 [facility] [1] Osteocalcin by ECIA Standing Status: Future Expected Date: 09/17/2025 Expiration Date: 12/12/2026 [facility] [1] C-Telopeptide Standing Status: Future Expected Date: 09/17/2025 Expiration Date: 12/12/2026 [facility] [1] Renal Function Panel, Plasma Standing Status: Future Expected Date: 09/17/2025 Expiration Date: 12/12/2026 [facility] [1] Bone Specific Alkaline Phosphatase Standing Status: Future Expected Date: 09/17/2025 Expiration Date: 12/12/2026 [facility] Immediate Alkaline Phosphatase Standing Status: Future Expected Date: 09/17/2025 Expiration Date: 12/12/2026 [facility]mediate PTH Panel 1 Standing Status: Future Expected Date: 09/17/2025 Expiration Date: 12/12/2026 [facility] Im[facility] Follow Up Bone Mineral Metabolism [...] Description 07/11/2025 9:00 AM EDT Clinical Support [facility] [place] [address] [place] [address] 07/11/2025 9:30 AM EDT Social Work [facility] [place] [address] [place] [address] [place] [address] 07/11/2025 10:30 AM EDT [facility] [address] [place] [address] Portia Maguire MD [address] [place] [address] 10/03/2025 12:45 PM EST Office Visit Medical Office Building Urology [address] [facility], [address] [place] [address] Suhail Brock MD [address] [place] [address] 10/18/2025 4:20 PM EST [facility] Visit [facility] [address] [facility], [address] [place] [address] Moustapha Katz MD [address] [place] [address] Scheduled Orders Name Type Priority [...] documented as of this encounter Care Teams Journeyman Welder Relationship Specialty Start Date End Date Chris Medel MD [address] [place] [address] PCP - General 03/14/25 Ruma Hernández APRN [address] [facility] [address] [place] [address] Referring Physician Gastroenterology 07/30/23 documented as of this encounter
--- OUTSIDE RECORDS SUMMARY | 2025-06-13 07:05 | XMS_ITS | Encounter Summary ---
Author Organization Healthcare Address [address] [place] [address] Care Team Providers Care Foundry Worker General Name Role Phone Ruma Hernández EDUCATIONAL ASSISTANT TEACHER Unavailable [phone] Chris Medel MD Primary Care Provider [phone] Encounter Details Date Type Department Care Team (Latest Contact Info) Description 06/13/2025 7:05 AM EDT - 06/13/2025 9:55 AM EDT [facility] [address] [place] [address] Pre-liver transplant, listed Discharge Disposition: Home or [...] How often do you attend chur or muslim services? More than 4 times per year [...] Recorded Patient Health Questionnaire-2 Score 0 06/08/2025 [facility] of Occupat ional Health - Occupational Stress [...] a nursing home (including now)? No 02/19/2025 CAGE ASSESSMENT Answer Date Recorded Cage unable [...] first t luisa in the morning (EYE-SENIOR INFORMATION DEVELOPER) to steady your nerves or to [...] PM EDT documented as of this encounter Medications at [...] 09/13/2024 5 ergocalciferol (Vitamin D-2) 1.25 MG (44103 UT) capsule Take 1 capsule by mouth [...] Description 07/11/2025 9:00 AM EDT Clinical Support [facility] [place] [address] [facility] [address] [place] [address] 07/11/2025 9:30 AM EDT Social Work [facility] [place] [address] [facility] [address] [place] [address] [place] [address] 07/11/2025 10:30 AM EDT Office Visit [facility] [place] [address] [facility] [address] [place] [address] Portia Maguire MD [address] [facility] [address] [place] [address] 10/03/2025 12:45 PM EST Office Visit Medical Office Building Urology [address] [facility], [address] [place] [address] Suhail Brock MD [address] [facility] [address] [place] [address] 10/18/2025 4:20 PM EST Office Visit [facility] [address] [facility], [address] [place] [address] Moustapha Katz MD [address] [facility] [address] [place] [address] documented as of this encounter Procedures Procedure Name Priority Date/Time Associated Diagnosis Comments XR CHEST 2 VIEWS Routine 06/13/2025 7:21 AM EDT Pre-liver transplant, listed documented in this encounter Results * XR Chest 2 Views (06/13/2025 7:21 AM EDT) Anatomical Region Laterality Modality Chest Digital Radiogra phy Impressions 06/13/2025 11:30 AM EDT No acute focal airspace disease. CRITICAL RESULT: No. COMMUNICATION: Per this written report. By electronically signing this report, I, the attending physician, attest that I have personally reviewed the images/data for the above examination(s) and agree with the final edited report. Drafted by Lary Meza MD on 06/13/2025 10:31 AM Final report signed by Gloria Alexnader MD on 06/13/2025 11:30 AM Narrative 06/13/2025 11:30 AM EDT CLINICAL INDICATION: recent pneumonia TECHNIQUE: XR CHEST 2 VIEWS COMPARISON: Chest radiograph April 11, 2024 FINDINGS: Cardiac silhouette and mediastinal contours are stable. No consolidation. No pleural effusion or pneumothorax. Procedure Note Gloria Alexander MD - 06/13/2025 CLINICAL INDICATION: recent pneumonia TECHNIQUE: XR CHEST 2 VIEWS COMPARISON: Chest radiograph April 11, 2024 FINDINGS: Cardiac silhouette and mediastinal contours are stable. No consolidation.No pleural effusion or pneumothorax. IMPRESSION: No acute focal airspace disease. CRITICAL RESULT: No. COMMUNICATION: Per this written report. By electronically signing this report, I, the attending physician, attestthat I have personally reviewed the images/data for the aboveexamination(s) and agree with the final edited report. Drafted by Lary Meza MD on 06/13/2025 10:31 AM Final report signed by Gloria Alexander MD on 06/13/2025 11:30 AM Zarina INTERIANO IMG XR PROCEDURES Final Result documented in this encounter Visit Diagnoses Diagnosis Pre-liver transplant, listed documented in this encounter Additional Health Concerns Assessment Noted Time PHQ-9 Depression Total Score: 0 10/04/20 24 12:32 PM EST A fall risk assessment has been complete d for the patient 06/13/2025 7:34 AM EDT A Body Mass Index follow-up plan has been documented for the patient 06/18/2025 1:07 PM EDT documented as of this encounter Care Teams Foundry Worker General Relationship Specialty Start Date End Date Chris Medel MD [address] [place] [address] PCP - General 03/14/25 Ruma Hernández APRN [address] [place] [address] Referring Physician Gastroenterology 07/30/23 documented as of this encounter
--- OUTSIDE RECORDS SUMMARY | 2025-06-13 08:00 | XMS_ITS | Encounter Summary ---
Author Organization Healthcare Address [address] [place] [address] Care Team Providers Care Rn Camp Name Role Phone Ruma Hernández HARNESS CUTTER Unavailable [phone] Chris Medel MD Primary Care Provider [phone] Reason for Referral * Imaging (Urgent) - Closed Specialty Diagnoses / Procedures Referred By Gianna reyes Referred To Contact Radiology Diagnoses Alcoholic cirrhosis, unspecified whether ascites present (CMS/HCC) Procedures US Liver Screen Portia Maguire MD [address] [place] [address] Phone: tel: fax: Referral ID Status Reason Start Date Expiration Date Visits Re quested Visits Authorized [id number] Closed 06/13/2025 12/13/2026 1 1 Reason for Visit * Reason Comments Pre-Liver Txp Follow-up Encounter Details Date Type Department Care Team (Latest Contact Info) Description 06/13/2025 8:00 AM EDT [facility] Visit [facility] [address] [facility] [address] [place] [address] Porita Maguire MD [address] [place] [address] Alcoholic cirrhosis, unspecified whether ascites present (CMS/HCC) [...] often do you attend chur ch or oriental orthodox services? More than 4 [...] any time in the past 12 m [facility], were you homeless or living in [...] week 06/15/2025 How often do you attend [facility] or oriental orthodox services? More than [...] and heating? Not hard at all 06/15/2025 [facility] of Occupat ional Health - Occupational Stress [...] any time in the past 12 m [facility], were you homeless or living in [...] drink first t luisa in the morning (EYE-SURFACING TECHNICIAN) to steady your nerves or to get [...] Description 07/11/2025 9:00 AM EDT Clinical Support [facility] [place] [address] [facility] [address] [place] [address] 07/11/2025 9:30 AM EDT Social Work [facility] [place] [address] [facility] [address] [place] [address] [place] [address] 07/11/2025 10:30 AM EDT Office Visit [facility] [place] [address] [place] [address] Portia Maguire MD [address] [place] [address] 10/03/2025 12:45 PM EST Office Visit Medical Office Building Urology [address] [facility], [address] [place] [address] Suhail Brock MD [address] [facility] [address] [place] [address] 10/18/2025 4:20 PM EST [facility] Visit [facility] [address] [facility], [address] [place] [address] Moustapha Katz MD [address] [facility] [address] [place] [address] documented as of this encounter [...] are based on Ultrasound LI-RADS version 2017. [email or web address]-Algorithm-Portrait -2017 .pdf CRITICAL RESULT: No. COMMUNICATION: Per [...] recommendations are based on UltrasoundLI-RADS version 2017. [email or web address]-Algorithm-Portrait -2017 .pdf CRITICAL RESULT: No. COMMUNICATION: Per [...] documented as of this encounter Care Teams Rn Camp Relationship Specialty Start Date End Date Chris Medel MD [address] [place] [address] PCP - General 03/14/25 Ruma Hernández APRN [address] [place] [address] Referring Physician Gastroenterology 07/30/23 documented as of this encounter
--- OUTSIDE RECORDS SUMMARY | 2025-06-13 09:56 | XMS_ITS | Encounter Summary ---
Author Organization [facility] Address [address] [place] [address] Care Team Providers Care Sports Physician Name Role Phone Ruma Hernández FINANCIAL FOUNDATIONS REPRESENTATIVE Unavailable [phone] Chris Medel MD Primary Care Provider [phone] Reason for Referral * Imaging (Urgent) - Closed Specialty Diagnoses / Procedures Referred By Gianna reyes Referred To Contact Radiology Diagnoses Alcoholic cirrhosis, unspecified whether ascites present (CMS/HCC) Procedures US Liver Screen Portia Maguire MD [address] [address] Phone: tel: fax: Referral ID Status Reason Start Date Expiration Date Visits Re quested Visits Authorized [id number] Closed 06/13/2025 12/13/2026 1 1 Reason for Visit * Imaging (Urgent) - Closed Specialty Diagnoses / Procedures Referred By Contru reyes Referred To Contact Radiology Diagnoses Alcoholic cirrhosis, unspecified whether ascites present (CMS/HCC) Procedures US Liver Screen Portia Maguire MD [address] [address] Phone: tel: fax:[phone] Referral ID Status Reason Start Date Expiration Date Visits Re quested Visits Authorized [id number] Closed 06/13/2025 12/13/2026 1 1 Encounter Details Date Type Department Care Team (Latest Contact Info) Description 06/13/2025 9:56 AM EDT - 06/13/2025 10:35 AM EDT Hospital Encounter [facility]iology [address] [place] [address] Alcoholic cirrhosis, unspecified whether ascites present (CMS/HCC) [...] How often do you attend chur or druze services? More than 4 times per year 02/19/2025 Do you belong to any clubs o r organizations such as mandaen groups, unions, fraternal or athletic groups, or [...] 0 06/08/2025 [facility] of Occupat ional [facility] - Occupational Stress Questionnaire Answer [...] time in the past 12 m [facility], were you homeless or living in a fpc (including now)? No 02/19/2025 CAGE ASSESSMENT Answer [...] drink first t luisa in the morning (EYE-COOK LARDER) to steady your nerves or to get rid of a hangover? 0 06/14/2025 CAGE Questionnaire Score 0 025 Utilities Answer Date Recorded In the past 12 months has th e [employer], gas, oil, or water [employer] threatened to shut off services in your [...] 09/13/2024 5 ergocalciferol (Vitamin D-2) 1.25 MG (06375 UT) capsule Take 1 capsule by mouth [...] Description 07/11/2025 9:00 AM EDT Clinical Support [facility] [place] [address] [place] [address] 07/11/2025 9:30 AM EDT Social Work [facility] [place] [address] [place] [address] [place] [address] 07/11/2025 10:30 AM EDT Office Visit [facility] [place] [address] [place] [address] Portia Maguire MD [address] [place] [address] 10/03/2025 12:45 PM EST Office Visit Medical Office Building Urology [address] [facility] [place] [facility], [address] [place] [address] Suhail Brock MD [address] [place] [address] 10/18/2025 4:20 PM EST Office Visit [facility] [address] [facility] [place] [facility], [address] [place] [address] Moustapha Katz MD [address] [place] [address] documented as of this encounter [...] are based on Ultrasound LI-RADS version 2017. [email or web address]-Algorithm-Portrait -2017 .pdf CRITICAL RESULT: No. COMMUNICATION: Per [...] recommendations are based on UltrasoundLI-RADS version 2017. [email or web address]://[email or web address]-RADS/HH-JPRD-YE-Algorithm-Portrait -2017 .pdf CRITICAL RESULT: No. COMMUNICATION: Per this written report. By electronically signing this report, I, the attending physician, attlilyat I have personally reviewed the images/data for [...] documented as of this encounter Care Teams Sports Physician Relationship Specialty Start Date End Date Chris Medel MD [address] [place] [address] PCP - General 03/14/25 Ruma Hernández APRN [address] [facility] [address] [place] [address] Referring Physician Gastroenterology 07/30/23 documented as of this encounter
--- OUTSIDE RECORDS SUMMARY | 2025-06-13 10:36 | XMS_ITS | Encounter Summary ---
Author Organization Healthcare Address [address] [place] [address] Care Team Providers Care Helicopter Repairer Name Role Phone Ruma Hernández FAMILY DAY CARE PROVIDER Unavailable [phone] Chris Medel MD Primary Care Provider [phone] Reason for Referral * Imaging (Routine) - Closed Specialty Diagnoses / Procedures Referred By Gianna t Referred To Contact Cardiology Diagnoses Pre-liver transplant, listed Procedures Echo, Adult Transthoracic (TTE) Complete Zarina Moore PA [address] [address] Phone: tel: fax: Referral ID Status Reason Start Date Expiration Date V isits Requested Visits Authorized [id number] Closed Perform Procedure 03/22/2025 09/21/2026 1 1 Reason for Visit * Imaging (Routine) - Closed Specialty Diagnoses / Procedures Referred By Contac t Referred To Contact Cardiology Diagnoses Pre-liver transplant, listed Procedures Echo, Adult Transthoracic (TTE) Complete Zarina Moore PA [address] [address] Phone: tel: fax: Referral ID Status Reason Start Date Expiration Date V isits Requested Visits Authorized [id number] Closed Perform Procedure 03/22/2025 09/21/2026 1 1 Encounter Details Date Type Department Care Team (Latest Contact Info) Description 06/13/2025 10:36 AM EDT - 06/13/2025 12:56 PM EDT Hospital Encounter Cardiac Imaging [address] [place] [address] Pre-liver transplant, listed Discharge Disposition: Home or [...] Recorded Patient Health Questionnaire-2 Score 0 06/08/2025 [facility] of Occupat ional [facility] - Occupational Stress Questionnaire Answer [...] in a prison (including now)? No 02/19/2025 CAGE ASSESSMENT Answer [...] drink first t luisa in the morning (EYE-CONCESSIONIST) to steady your nerves or to get rid of a hangover? 0 06/14/2025 CAGE Questionnaire Score 0 025 Utilities Answer Date Recorded In the past 12 months has th [employer], gas, oil, or water [employer] threatened to shut off services in your [...] Index - - documented in this encounter Medications at Time of Discharge [...] 11 09/13/2024 ergocalciferol (Vitamin D-2) 1.25 MG (07673 UT) capsule Take 1 capsule by mouth [...] Description 07/11/2025 9:00 AM EDT Clinical Support [facility] [place] [address] [place] [address] 07/11/2025 9:30 AM EDT Social Work [facility] [place] [address] [place] [address] [place] [address] 07/11/2025 10:30 AM EDT Office Visit [facility] [place] [address] [place] [address] Portia Maguire MD [address] [place] [address] 10/03/2025 12:45 PM EST Office Visit Medical Office Building Urology [address], [address] [place] [address] Suhail Brock MD [address] [place] [address] 10/18/2025 4:20 PM EST Office Visit Professional [employer] [place] [facility] [address] [facility], [address] [place] [address] Moustapha Katz MD [address] [place] [address] documented as of this encounter [...] 10.3 cm/s NII ISCV Lat E/e' 10.8 INI ISCV LV Sept e' Tremayne 6.1 cm/s [...] the degree of transpulmonary shunt is increased. us Zarina INTERIANO CV ECHO PROCEDURES Final Result [...] documented as of this encounter Care Teams Helicopter Repairer Relationship Specialty Start Date End Date Chris Medel MD [address] [place] [address] PCP - General 03/14/25 Ruma Hernández APRN [address] [place] [address] [address] Referring Physician Gastroenterology 07/30/23 documented as of this encounter
--- OUTSIDE RECORDS SUMMARY | 2025-06-13 12:57 | XMS_ITS | Encounter Summary ---
Author Organization Healthcare Address [address] 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 Name Role Phone Ruma Hernández SENIOR APPLICATIONS DEVELOPER Unavailable [phone] Chris Medel MD Primary Care Provider [phone] Reason for Referral * Imaging (Routine) - Closed Specialty Diagnoses / Procedures Referred By Gianna reyes Referred To Contact Radiology Diagnoses Pre-liver transplant, listed Procedures CT Angio Cardiac Coronary Arteries Zarina Moore PA [address] [address] Phone: tel: fax: Referral ID Status Reason Start Date Expiration Date Visits Re quested Visits Authorized [id number] Closed 03/22/2025 09/21/2026 1 1 Reason for Visit * Imaging (Routine) - Closed Specialty Diagnoses / Procedures Referred By Gianna reyes Referred To Contact Radiology Diagnoses Pre-liver transplant, listed Procedures CT Angio Cardiac Coronary Arteries Zarina Moore PA [address] [address] Phone: tel: fax: Referral ID Status Reason Start Date Expiration Date Visits Re quested Visits Authorized [id number] Closed 03/22/2025 09/21/2026 1 1 Encounter Details Date Type Department Care Team (Latest Contact Info) Description 06/13/2025 12:57 PM EDT - 06/13/2025 11:59 PM EDT Hospital Encounter [facility] [address] [place] [address] Chris Knott RN [facility] 5 T2 NE[facility] EMU Pre-liver transplant, listed Discharge Disposition: Home or [...] How often do you attend [facility] or [facility] services? More than 4 times per year [...] Recorded Patient Health Questionnaire-2 Score 0 06/08/2025 [facility] ional Health - Occupational Stress [...] 0 10/04/2024 Housing Stability Vital Sign Answer Rfansico e Recorded In the last 12 months, [...] in a usp (including now)? No 02/19/2025 CAGE ASSESSMENT Answer [...] drink first t luisa in the morning (EYE-COP WINDER) to steady your nerves or to get rid of a hangover? 0 06/14/2025 CAGE Questionnaire Score 0 025 Utilities Answer Date Recorded In the past 12 months has th [employer], gas, oil, or water [employer] threatened to shut off services in your [...] Sign Reading Time Taken Comments Blood Pressure 101/72 06/13/2025 3:03 PM EDT Pulse 88 06/13/2025 3:03 PM EDT Temperature - - Respiratory Rate - - Oxygen Saturation 98% 06/13/2025 1:34 PM EDT Inhaled Oxygen Concentration - - Weight 103 kg (227 lb 4.7 oz) 06/13/2025 1:36 PM EDT Height - - Body Mass Index 36.69 06/13/2025 7:03 AM EDT documented in this encounter Medications at Time [...] 09/13/2024 5 ergocalciferol (Vitamin D-2) 1.25 MG (58392 UT) capsule Take 1 capsule by mouth [...] day. 01/15/2025 documented as of this encounter Miscellaneous Notes * Ara Castellano, RN - 06/13/2025 1:37 PM EDT Images from the original note were not included. [id number] Understanding coronary computed tomography angiography (CCTA) Coronary computed tomography angiography (CCTA) is a type of imaging test. It's a noninvasive test that can detect blockages in the coronary arteries. These are the blood vessels that supply blood tothe heart. CCTA uses a special dye put into the blood and a CT scanner to make 3-D images of the coronary arteries. Why CCTA is done CCTA checks if the coronary arteries are healthy. It shows narrowing of the arteries and a buildup of plaque. Plaque is a substance made up of fat, cholesterol, and calcium. Too much plaque in the arteries can block blood flow to the heart. This is called coronary artery disease. It can lead to a heart attack. You may have a CCTA if your healthcare provider thinks there is a problem with your coronary arteries. You may also have one if you are having chest pain and other tests are not clear as to why. Chest pain may be a sign of a sudden blockage in a coronary artery. How CCTA is done Before you have the test, your healthcare provider may tell you to not eat or drink for some time beforehand. You will also have to stay away from caffeine. It could raise your heart rate for the test. Your healthcare provider may tell you to stop taking certain medicines. Tell your provider about all the medicines and supplements you take. This includes vitamins, minerals, and herbs. If you use drugs, it's important to tell your provider. Also tell your provider if you have any allergies or health conditions or if you may be or are . Before the procedure, you will be asked to sign a form saying you agree to the procedure. Be certain to ask any questions you have before you sign. CCTA often takes about 15 to 20 minutes. But it maytake longer if you need to take medicine to slow your heart rate. During the test: ? You will change into a gown. You will be asked to remove all metal objects from your body, such as jewelry. ? Once in the test room, you will lie down on your back on a narrow table. The table is part of theCT scanner. ? A healthcare provider will put 3 electrodes on your chest. These sticky pads are connected to an electrocardiograph (ECG) machine. The ECG monitors your heart?s electrical activity during the test. ? The healthcare provider will put an intravenous (IV) line in your arm. They may put medicine intothe IV line to slow your heart rate down. Or you may be given a pill. ? You may also be given nitroglycerin as a pill or mouth spray. This substance helps dilate the coronary arteries so they can be seen more easily ? The healthcare provider will then inject the special dye into the IV line. You may feel warm as the dye goes into your bloodstream. ? You may be asked to raise your arms above your head for the duration of the test. This helps capture better images. ? The table will slide into the CT scanner. The scanner will make several passes over your body. You need to stay still during the test to make sure the images are clear. ? At some points during the test, the healthcare provider may ask you to hold your breath for 5 to 15 seconds. ? Once the test is over, the table will slide out of the CT scanner. The healthcare provider will take out the IV line. What happens after CCTA You may return to your normal activities right away. A healthcare provider, often a radiologist, will look at the images. They will send the results to your healthcare provider. It may take a few days for you to get the results. Schedule a follow-up visit with your healthcare provider, as directed. Risks of CCTA ? Allergic reaction to the special dye ? Damage to kidneys from the dye ? Low levels of radiation exposure ? Discomfort around the IV site Last Reviewed Date: 2024 00:00:00 ?? [id number] [employer]. All rights reserved. This information is not intended as a substitute for professional medical care. Always follow your healthcare professional's instructions. documented in this encounter Plan of Treatment Upcoming Encounters Date Type Department Care Team (Late st Contact Info) Description 07/11/2025 9:00 AM EDT Clinical Support [facility] [address] [place] [address] 07/11/2025 9:30 AM EDT Social Work [facility] [address] [place] [address] [place] [address] 07/11/2025 10:30 AM EDT Office Visit [facility] [address] [place] [address] Portia Maguire MD [address] [place] [address] 10/03/2025 12:45 PM EST Office Visit [facility] [address], [address] [place] [address] Suhail Brock MD [address] [place] [address] 10/18/2025 4:20 PM EST Office Visit [facility] [address], [address] [place] [address] Moustapha Katz MD [address] [place] [address] documented as of this encounter Procedures Procedure Name Priority Date/Time Associated Diagnosis Comments CT ANGIO CARDIAC CORONARY ARTERIES Routine 06/13/2025 3:02 PM EDT Pre-liver transplant, listed documented in this encounter Results * CT Angio Cardiac Coronary Arteries (06/13/2025 3:02 PM EDT) Anatomical Region Laterality Modality Heart Computed Tomogra phy Impressions 06/13/2025 10:38 PM EDT 1. No evidence of coronary plaque or stenosis. 2. Overall, there is no coronary plaque present (which includes both calcified and non-calcified plaques). No coronary calcification with an Agatston score = 0 using the AJ-130 method. Recommendation: CAD-RADS 0: Reassurance. No further cardiac testing recommended prior to liver transplantation. Can consider retesting with CCTA in 3 years or greater. 3. Constellation of findings consistent with sequelae of hepatic cirrhosis with portal hypertension, including large esophageal varices and medium volume ascites. Critical Result: No. COMMUNICATION: Per this written report. By electronically signing this report, I, the attending physician, attest that I have personally reviewed the images/data for the above examination(s) and agree with the final edited report. Drafted by Aiden Christine MD on 06/13/2025 3:48 PM Final report signed by Yamini Martins MD on 06/13/2025 10:38 PM Narrative 06/13/2025 10:38 PM EDT CLINICAL INFORMATION: A 65 year-old Male with a past medical history of HTN, HLD, and EtOH cirrhosis who presents for coronary CTA for cardiac evaluation prior to liver transplantation Height: 167.6 cm Weight: 103 kg Baseline Heart Rate on Arrival: 87 beats/min COMPARISON: Visualized thoracic portion of CT abdomen/pelvis 03/14/2025 Transthoracic echocardiogram report 04/21/2024 TECHNIQUE: Pre-Medication: The patient received the following medications prior to the Cardiac CT: 50 mg of po metoprolol, 5mg of IV metoprolol, and 0.4mg sublingual nitroglycerin. The average heart rate at the time of acquisition was 78 bpm (76 bpm to 82 bpm) and regular. Image Acquisition and Reconstruction: A Dual source 192 MDCT scanner ([employer], [employer]) was used for data acquisition. A non-contrast coronary calcium scan was initially performed. Bolus tracking in the ascending aorta with a threshold of 180 HU was performed. Immediately afterwards, ECG synchronized Cardiac CT was then performed from cardiac base to apex using prospective gating. A total of 80 mL Omnipaque 350mgI/mL contrast media was administered followed by a saline flush using a biphasic injection protocol. Transaxial images were reconstructed at 0.75 mm slice thickness. Data was reviewed interactively on an advanced workstation capable of 2 and 3 dimensional displays in all conventional reconstruction formats including multiplanar reformations, maximum intensity projections, curved multiplanar reformations, and volume rendered reconstructions. Selected routine images displaying relevant coronary anatomy and pathology were saved and sent to PACS. Total DLP (Dose-Length Product): 366.69 mGy.cm. Please note: The reported value represents the total of one or more individual components during the CT acquisition on this date and at this time, and as such, the same value may appear in more than one CT report depending on the interpreting/reporting physicians. Technical Quality: Overall image quality is Good, with minor artifacts that do not significantly impact diagnostic quality. Coronary artery opacification is Adequate. FINDINGS: --- Coronary Calcium Scoring --- Left Main= 0 Left Anterior Descending= 0 Left Circumflex= 0 Right Coronary Artery= 0 Total calcium score = 0 using the AJ-130 method (total volume score is 0). The calculated vascular age for this patient is 40 years. --- Coronary CT Angiography --- The coronaries have normal origin and proximal course. The coronary arterial system is right dominant. Left Main: CAD-RADS 0. The left main originates from the left sinus of Valsalva and bifurcates into the left anterior descending and left circumflex arteries. No visible plaque or stenosis. Left Anterior Descending: CAD-RADS 0. The LAD arises from the left main, courses down the anterior interventricular groove, gives off 1 notable diagonal branches, and terminates as a recurrent apical branch. No visible plaque or stenosis. Left Circumflex: CAD-RADS 0. The LCx arises from the left main, gives off 2 notable obtuse marginal branches, and terminates in the left AV groove. No visible plaque or stenosis. Right Coronary Artery: CAD-RADS 0. The RCA originates from the right sinus of Valsalva and is dominant for posterior circulation, gives off acute marginal branches, and distally bifurcates into the posterior descending artery and a branching posterolateral vessel. No visible plaque or stenosis. --- Non Coronary Cardiac Findings --- Normal cardiac chamber size. No significant pericardial effusion, thickening, or calcification. Normal interatrial and interventricular septum. Mildly calcified aortic valve. Grossly normal mitral valve. --- Extra Cardiac Structures --- Thoracic aorta and imaged thoracic aortic branches in the field of view are unremarkable. Central and branch pulmonary arteries in the field of view are unremarkable. Calcified mediastinal and right hilar lymph nodes. A few small air cysts in the lung parenchyma. No suspicious pulmonary nodules. Distal esophagus appears thickened with extensive varices. Incompletely visualized gastrosplenic varix also. Small volume ascites. Shrunken liver with nodular contour. No suspicious hepatic lesion. Left hepatic lobe calcified granulomas. Incompletely visualized spleen appears enlarged. Degenerative changes of the thoracic spine. No aggressive osseous lesion. Symmetric large gynecomastia bilaterally. No axillary lymphadenopathy. Procedure Note Yamini Martins MD - 06/13/2025 CLINICAL INFORMATION: A 65 year-old Male with a past medical history of HTN, HLD, and EtOHcirrhosis who presents for coronary CTA for cardiac evaluation prior jade transplantation Height: 167.6 cm Weight: 103 kg Baseline Heart Rate on Arrival: 87 beats/min COMPARISON: Visualized thoracic portion of CT abdomen/pelvis 03/14/2025 Transthoracic echocardiogram report 04/21/2024 TECHNIQUE: Pre-Medication: The patient received the following medications prior to the Cardiac CT: 50mg of po metoprolol, 5mg of IV metoprolol, and 0.4mg sublingualnitroglycerin. The average heart rate at the time of acquisition was 78 bpm (76 bpm to 82bpm) and regular. Image Acquisition and Reconstruction: A Dual source 192 MDCT scanner ([employer], [employer])was used for data acquisition. A non-contrast coronary calcium scan wasinitially performed. Bolus tracking in the ascending aorta with athreshold of 180 HU was performed. Immediately afterwards, ECGsynchronized Cardiac CT was then performed from cardiac base to apex usingprospective gating. A total of 80 mL Omnipaque 350mgI/mL contrast mediawas administered followed by a saline flush using a biphasic injectionprotocol. Transaxial images were reconstructed at 0.75 mm slice thickness.Data was reviewed interactively on an advanced workstation capable of 2and 3 dimensional displays in all conventional reconstruction formatsincluding multiplanar reformations, maximum intensity projections, curvedmultiplanar reformations, and volume rendered reconstructions. Selectedroutine images displaying relevant coronary anatomy and pathology weresaved and sent to PACS. Total DLP (Dose-Length Product): 366.69 mGy.cm. Please note: The reportedvalue represents the total of one or more individual components during theCT acquisition on this date and at this time, and as such, the same valuemay appear in more than one CT report depending on theinterpreting/reporting physicians. Technical Quality: Overall image quality is Good, with minor artifacts that do notsignificantly impact diagnostic quality. Coronary artery opacification is Adequate. FINDINGS: --- Coronary Calcium Scoring --- Left Main= 0 Left Anterior Descending= 0 Left Circumflex= 0 Right Coronary Artery= 0 Total calcium score = 0 using the AJ-130 method (total volume score is 0).The calculated vascular age for this patient is 40 years. --- Coronary CT Angiography --- The coronaries have normal origin and proximal course. The coronaryarterial system is right dominant. Left Main: CAD-RADS 0. The left main originates from the left sinus ofValsalva and bifurcates into the left anterior descending and leftcircumflex arteries. No visible plaque or stenosis. Left Anterior Descending: CAD-RADS 0. The LAD arises from the left main,courses down the anterior interventricular groove, gives off 1 notablediagonal branches, and terminates as a recurrent apical branch. No visibleplaque or stenosis. Left Circumflex: CAD-RADS 0. The LCx arises from the left main, gives off2 notable obtuse marginal branches, and terminates in the left AV groove.No visible plaque or stenosis. Right Coronary Artery: CAD-RADS 0. The RCA originates from the right sinusof Valsalva and is dominant for posterior circulation, gives off acutemarginal branches, and distally bifurcates into the posterior descendingartery and a branching posterolateral vessel. No visible plaque orstenosis. --- Non Coronary Cardiac Findings --- Normal cardiac chamber size. No significant pericardial effusion,thickening, or calcification. Normal interatrial and interventricularseptum. Mildly calcified aortic valve. Grossly normal mitral valve. --- Extra Cardiac Structures --- Thoracic aorta and imaged thoracic aortic branches in the field of vieware unremarkable. Central and branch pulmonary arteries in the field ofview are unremarkable. Calcified mediastinal and right hilar lymph nodes. A few small air cystsin the lung parenchyma. No suspicious pulmonary nodules. Distal esophagusappears thickened with extensive varices. Incompletely visualizedgastrosplenic varix also. Small volume ascites. Shrunken liver withnodular contour. No suspicious hepatic lesion. Left hepatic lobe calcifiedgranulomas. Incompletely visualized spleen appears enlarged. Degenerativechanges of the thoracic spine. No aggressive osseous lesion. Symmetriclarge gynecomastia bilaterally. No axillary lymphadenopathy. IMPRESSION: 1. No evidence of coronary plaque or stenosis. 2. Overall, there is no coronary plaque present (which includes bothcalcified and non-calcified plaques). No coronary calcification with anAgatston score = 0 using the AJ-130 method. Recommendation: CAD-RADS 0: Reassurance. No further cardiac testingrecommended prior to liver transplantation. Can consider retesting withCCTA in 3 years or greater. 3. Constellation of findings consistent with sequelae of hepaticcirrhosis with portal hypertension, including large esophageal varices andmedium volume ascites. Critical Result: No. COMMUNICATION: Per this written report. By electronically signing this report, I, the attending physician, attestthat I have personally reviewed the images/data for the aboveexamination(s) and agree with the final edited report. Drafted by Aiden Christine MD on 06/13/2025 3:48 PM Final report signed by Yamini Martins MD on 06/13/2025 10:38 PM [facility] CT PROCEDURES Final Result documented in this encounter Visit Diagnoses Diagnosis Pre-liver transplant, listed documented in this encounter Administered Medications Inactive Administered Medications - up to 3 most recent administrations Medication Order MAR Action Action Date Dose Rate Site iohexol (OMNIPaque) 350 MG/ML injection 80 mL 80 mL, Intravenous, Once in imaging, 1 dose, Starting on Wed06/13/25 at 1405, Until Wed06/13/25 at 1448, Routine, Imaging Protocol Orders Given 06/13/2025 2:48 PM EDT 80 mL metoprolol tartrate (Lopressor) injection 5 mg 5 mg, Intravenous, Every 5 min PRN, 6 doses, Starting on Wed06/13/25 at 1328, Until Maris 06/14/25 at 0248, Routine, if oral dose ineffective or IV preferred, Intraprocedure Given 06/13/2025 2:39 PM EDT 5 mg metoprolol tartrate (Lopressor) tablet 50 mg 50 mg, Oral, Once in imaging, 1 dose, Starting on Wed06/13/25 at 1328, Until Wed06/13/25 at 1349, Routine, Intraprocedure Given 06/13/2025 1:49 PM EDT 50 mg nitroglycerin (Nitrostat) SL tablet 0.8 mg 0.8 mg, Sublingual, Once PRN Procedure, 1 dose, Starting on Wed06/13/25 at 1328, Until Wed06/13/25 at 1452, Routine, Intraprocedure, CTA Given 06/13/2025 2:52 PM EDT 0.4 mg documented in this encounter Additional Health Concerns Assessment Noted Time PHQ-9 Depression Total Score: 0 10/04/20 24 12:32 PM EST A fall risk assessment has been complete d for the patient 06/13/2025 7:34 AM EDT A Body Mass Index follow-up plan has been documented for the patient 06/18/2025 1:07 PM EDT documented as of this encounter Care Teams Mine Car Mechanic Relationship Specialty Start Date End Date Chris Medel MD [address] [place] [address] PCP - General 03/14/25 Ruma Hernández APRN [address] [place] [address] Referring Physician Gastroenterology 07/30/23 documented as of this encounter
--- OUTSIDE RECORDS SUMMARY | 2025-06-14 15:47 | XMS_ITS | Encounter Summary ---
Author Organization Healthcare Address [address] [place] [address] Care Team Providers Care Tow Motor Operator Name Role Phone Ruma Hernández DYE AND CHEMICAL COORDINATOR Unavailable [phone] Chris Medel MD Primary Care Provider [phone] Reason for Visit * Auth/Cert (Routine) Specialty Diagnoses / Procedures Referred By Gianna t Referred To Contact Diagnoses Transplant Luis Angel Bee MD [address] [address] Phone: tel: fax: [facility] Inpatient [address] [place] [address] Phone: tel: Referral ID Status Reason Start Date Expiration Date Visits Re quested Visits Authorized [id number] 1 1 Encounter Details Date Type Department Care Team (Late st Contact Info) Description 06/14/2025 3:47 PM EDT - 06/15/2025 6:14 PM EDT Hospital Encounter [facility] Inpatient [address] [place] [address] Luis Angel Bee MD [address] [address] Alcoholic cirrhosis, unspecified whether ascites [...] often do you attend chur ch or rastafarian services? More than 4 times [...] any time in the past 12 m [facility], were you homeless or living in a senior care (including now)? No 02/19/2025 Humiliation, Afraid, Rape, [...] week 06/15/2025 How often do you attend [facility] or rastafarian services? More than 4 times [...] and heating? Not hard at all 06/15/2025 [facility] - [...] any time in the past 12 m [facility], were you homeless or living in a senior care (including now)? No 06/15/2025 CAGE ASSESSMENT Answer [...] drink first t luisa in the morning (EYE-MOTOR LODGE CLERK) to steady your nerves or to [...] Commonly known as: Coreg ergocalciferol 1.25 MG (22619 UT) capsule Take 1 capsule by mouth [...] Department Center 07/11/2025 9:00 AM TRANSPLANT LAB [facility] 07/11/2025 10:30 AM Portia Maguire MD [facility] 10/03/2025 12:45 PM Suhail Brock MD UROGSHMOB [facility] 10/18/2025 4:20 PM Moustapha Katz MD [...] 09/13/2024 5 ergocalciferol (Vitamin D-2) 1.25 MG (76615 UT) capsule Take 1 capsule by mouth [...] 65 yo M who was admitted to [facility] on 06/14 for possible liver transplant. [...] PCP name and Address: Chris Medel MD [address] [place] [address] / [place] [address] Referring provider name and address: No referring provider defined for this encounter. Chief Concern, Brief History of Present Illness, and Hospital Course David Serrano is a 65 yo M with history of alcohol-associated cirrhosis, renal Stones, GERD, Gout, hypocalcemia, and history of iron overload requiring therapeutic phlebotomy who was admitted to [facility] on 06/14 for possible liver transplant. [...] a day with meals. ergocalciferol 1.25 MG (37316 UT) capsule Commonly known as: Vitamin D-2 [...] Commonly known as: Coreg ergocalciferol 1.25 MG (09409 UT) capsule Take 1 capsule by mouth [...] Department Center 07/11/2025 9:00 AM TRANSPLANT LAB [facility] 07/11/2025 10:30 AM Portia Maguire MD [facility] 10/03/2025 12:45 PM Suhail Brock MD UROGSHMOB [facility] 10/18/2025 4:20 PM Moustapha Katz MD BMMGSPAC PAC Test Results Pending At Discharge Pending [...] prior to discharge. Luis Angel Bee M.D. lithography contact worker Department of Surgery / Transplantation [facility] [email or web address] Transplant Center, [address] [place] [address] Dictation software disclaimer: Parts of this note was generated using voice recognition equipment and technology provided by the [facility]. Despite a reasonable effort at proofreading, it is subject to turf manager related errors, omissions, spelling errors, changes in [...] since 06/13 ergocalciferol (Vitamin D-2) 1.25 MG (77801 UT) capsule 06/08/2025 No Yes Sig: Take [...] daily. Facility-Administered Medications: None Patients Preferred Pharmacy* [facility] [address] [facility] [address] *May default to [facility] if patient is enrolled to Onxm1Mrdh Service. Pharmacy Benefits DAVID SERRANO [id number] ([facility]) Covered: <b>Retail</b>, <b>Mail Order</b>, Specialty Unknown: Long-Term Care BIN: [id number] : 1960 Group ID: [id number] PCN: [id number] Legal sex: M Group name: [id number] [employer]ENTRAL MOTOR WHEEL OF Address: [address] [place] [id number] Additional Comments: FRAME STRAIGHTENER list has been updated to align with information found in ss, from home pharmacy, and bedside interview with pt. No medications were added or removed from list. Calcitriol is a new medication which has not been started this week. Fill history supports compliance. [facility] week due to low bp, last dose was on 06/13/25. Pt will need thermometerpost txp. Pt is enrolled in M2B, allergies verified, and pt enrolled in M2b. Follow up as needed. Interaction Documentation [x] I have reviewed the medication information [facility] I have reviewed/called the patients home pharmacy to compare discrepancies discovered from review of surescripts, pts chart, documented disease states, and relative information. Notes: [x] Pt allergies and reactions documented within [facility] system have been reviewed, or updated, appropriately after discussion with patient. Notes: Colette Zamudio CPhT 06/15/2025 12:20 PM I agree with the information documented above. All student/cisco certified internetwork expert notes from collection of information has been reviewed. Medications match pt indications and PMHx. * Progress Notes - Dear, Lisa Conley RN - 06/15/2025 9:03 AM EDT Case Management Adult Initial Progress Note David Serrano 65 y.o. male CSN: [id number] Admission: 06/14/2025 3:47 PM Primary Problem: Alcoholic cirrhosis, unspecified whether ascites present (CMS/HCC) Roads Supervisor reviewed chart and spoke with patient to complete this Initial Case Management Assessment. PCP: Chris Medel MD Emergency Contact: Extended Emergency Contact Information Primary Emergency Contact: Stacy Serrano Address: [address] [place] [address] [address] [address] [place] Relation: Spouse Preferred language: Swazi Repair Technician needed? No Secondary Emergency Contact: Lan Serrano Mobile Relation: Son Preferred language: Swazi Repair Technician needed? No Insurance: Primary Visit Coverage Payer Plan Sponsor Code Group Number Group Name NANCY CRUZ [place] [id number] Primary Visit Coverage Subscriber Subscriber ID Subscriber Name Subscriber N Subscriber Address [id number] DAVID SERRANO [id number] [place] [address] [address] [place] [address] Patient information: Floresita Banegas - [phone] = Secondary Emergency Contact. Pt admitted for [...] can walk up flight of steps. [address] [place] [address] Current DME: No DME in use. Income Information: Greater than 115 K per month. 2 in household. Housing Circumstances-Z Codes: Private home with 1 SCOTT. Single story home. [place] water. Patient Referred to: Pt would agree to [facility] referral if recommended. Anticipated Discharge Date: TBD Patient's Discharge Goal: HWA Assistance Available at Discharge: = primary care Secondary care givers = friend/ neighbors Discharge Transport: Follow Up Transport: Home Health / Home Infusion / Outpatient Dialysis Services: No history of home health. No history of home infusion. No history of dialysis. Living Will/Advance Directive/Power of Hot Saw Operator /Guardian: Unable to assess: No Have you reviewed your Advance Directive and is it valid for this stay?: Yes Advance Directive: Patient has advance directive, copy not in chart Advance Directive not in Chart: Copy requested from family (pt states they will call marketing clerk) Information Provided on Healthcare Directives: Yes Pre-existing DNR/DNI Order: No Patient Requests Assistance: No Additional Comments: Pt wears hearing aids. HS degree. Lisa Conley Dear, RN * Care Plan - Sera Kitchen [...] Support Donor Organ Function Flowsheets (Taken 06/15/2025 08) Stabilization Measures: legs elevated fluid resuscitation initiated [...] Prevent or Manage Pain Flowsheets (Taken 06/15/2025 08) Pain Management Interventions: position adjusted relaxation techniques promoted Complementary Therapy: music therapy provided Spiritual Activities Assistance: personal rituals encouraged music provided Sleep/Rest Enhancement: relaxation techniques promoted Goal: Effective Oxygenation and Ventilation Outcome: Ongoing, Progressing Intervention: Promote Airway Secretion Clearance Flowsheets Taken 06/15/2025819 Cough And Deep Breathing: education provided Taken 06/15/2025799 Activity Management: ambulated to bathroom [...] Review Outcome: Ongoing, Progressing Flowsheets (Taken 06/14/2025 3416) Progress: no change Outcome Evaluation: Awaiting possible [...] from the original note were not included. [facility] Department of Surgery Division of Abdominal Transplant Surgery History & Physical/Consult Note Subjective History of Present Illness: Chief Complaint: presenting for liver transplant David Serrano is a 65 y.o. male with PMHx significant for alcohol- associated cirrhosis, history of Renal Stones, GERD, Gout, hypocalcemia, and history of iron overload requiring therapeutic phlebotomy. He presents to [facility] on 06/14/2025 for liver transplantation. No [...] Maguire MD ergocalciferol (Vitamin D-2) 1.25 MG (91062 UT) capsule Take 1 capsule by mouth [...] are based on Ultrasound LI-RADS version 2017. [email or web address]/-/[email or web address]-[email or web address] XR CHEST 2 VIEWS (06/13) IMPRESSION: No acute focal airspace disease. Radiographic Interpretation: I have reviewed the imaging above and agree with the radiologist interpretation. Assessment/Plan Assessment & Plan: David Serrano is a 65 y.o. male with PMHx significant for alcohol- associated cirrhosis, history of Renal Stones, GERD, Gout, hypocalcemia, and history of iron overload requiring therapeutic phlebotomy. He presents to [facility] on 06/14/2025 for liver transplantation. He denies any changes to his health since last seen. Consent was obtained on 06/14/25. Plan: - Admit to [facility] - [facility] - SCDs - NPO Assessment & Plan Alcoholic cirrhosis, unspecified whether [...] prior to discharge. Luis Angel Bee M.D. lithography contact worker Department of Surgery / Transplantation [facility] [email or web address], [address] [address], [place] [address] Dictation software disclaimer: Parts of this note was generated using voice recognition equipment and technology provided by the [facility]. Despite a reasonable effort at proofreading, it is subject to turf manager related errors, omissions, spelling errors, changes in [...] AM EDT Clinical Support [facility] [place] [address] [place] [address] 07/11/2025 9:30 AM EDT Social Work [facility] [place] [address] [place] [address] [place] [address] 07/11/2025 10:30 AM EDT Office Visit [facility] [place] [address] [place] [address] Portia Maguire MD [address] [facility] [address] [place] [address] 10/03/2025 12:45 PM EST Office Visit Medical Office Building Urology [address], [address] [place] [address] Suhail Brock MD [address] [place] [address] 10/18/2025 4:20 PM EST Office Visit [facility] [address], [address] [place] [address] Moustapha Katz MD [address] [place] [address] Pending Results Name Type Priority [...] ECG Atrial Rate 65 BPM MUSE ECG MD Interval 162 ms MUSE ECG QRSD Interval 86 ms MUSE ECG QT Interval 446 ms MUSE ECG QTC Interval 463 ms MUSE ECG P [place] 4 degrees MUSE ECG R [place] 58 degrees MUSE ECG T Wave [place] 22 degrees MUSE ECG Diagnosis Normal sinus rhythm MUSE ECG Diagnosis Cannot rule out Anterior infarct , age undetermined MUSE ECG Diagnosis Abnormal ECG MUSE ECG Diagnosis MUSE ECG Diagnosis Confirmed by Max Gregorio ([id number]) on 06/15/2025 3:47:28 PM MUSE ECG 06/15/2025 10:3 5 AM EDT 06/15/2025 3:47 PM EDT Mary INTERIANO ECG ORDERABLES Final Result Performing Organization Address City/[facility]/ZIP Co de Phone Number MUSE ECG * SARS CoV-2/COVID-19 by PCR - Rapid (06/14/2025 6:47 PM EDT) SARS CoV-2/COVID-1 9 RNA PCR Result Not Detected Not Detected 06/14/2025 8:35 PM EDT [facility] Swab Nasopharyngeal structure / Unknown Non-blood Collection / Unknown 06/14/2025 6:47 PM EDT 06/14/2025 7:49 PM EDT Narrative [facility] - 06/14/2025 8:35 PM EDT [...] clinical signs and symptoms consistent with COVID-19. Luis Angel Bee MD LAB MICROBIOLOGY - GENERA L ORDERABLES Final Result [facility] [address] [place] [address] * Leticia auris Surveillance by PCR (06/14/2025 6:47 PM EDT) Leticia auris PCR Result Not Detected Not Detected 06/18/2025 5:[address] [facility] Swab (Axilla and Groin) Non-blood Collection / Unknown 06/14/2025 6:47 PM EDT 06/14/2025 7:49 PM EDT Narrative [facility] - 06/18/2025 5:43 AM EDT This PCR assay was developed and its performance characteristics determined by [facility] as appropriate for clinical purposes. This assay has not been cleared or approved by the FDA, but is performed in a CLIA regulated laboratory that is qualified to perform high-complexity testing. us Luis Angel Bee MD LAB MICROBIOLOGY - [facility] L ORDERABLES Final Result [facility] [address] [place] [address] * Cytomegalovirus Antibody IgG (06/14/2025 6:31 PM EDT) CMV ANTIBODY IGG <0.20 <=0.59 U/mL 06/16/2025 9:07 PM EDT [facility] ([place]) Blood Venous blood specimen / Unknown Venipuncture / Unknown 06/14/2025 6:31 PM EDT 06/14/2025 7:05 PM EDT Narrative [facility] ([place] - 06/16/2025 9:07 PM EDT INTERPRETIVE INFORMATION: [...] laboratory at the same time. Performed By: [facility] [address] [place] [address] Instantizer Operator: Balwinder Wadsworth MD, PhD CLIA Number: [id number] us Luis Angel Bee MD LAB BLOOD ORDERABLES Nadia l Result [facility] ([place]) [address] [place] [address] * Light Green Top (06/14/2025 6:31 PM EDT) Extra Hold for add-ons 06/14/2025 11:01 PM EDT [facility] Comment:Auto resulted. Blood Venous blood specimen / Unknown 06/14/2025 6:31 PM EDT 06/14/2025 8:12 PM EDT us Luis Angel Bee MD LAB BLOOD ORDERABLES Nadia l Result [facility] [address] [place] [address] * Red Top (06/14/2025 6:31 PM EDT) Extra Hold for add-ons 06/14/2025 11:01 PM EDT [facility] Comment:Auto resulted. Blood Venous blood specimen / Unknown 06/14/2025 6:31 PM EDT 06/14/2025 8:12 PM EDT us Luis Angel Bee MD LAB BLOOD ORDERABLES Nadia l Result [facility] [address] [place] [address] * HIV 1 & 2 Antibody/Antigen Screen (06/14/2025 6:31 PM EDT) HIV 1 & 2 Antibody/Antigen Screen Non Reactive Non Reactive 06/14/2025 7:45 PM EDT [facility] Comment:Screening for HIV 1 & 2 antibodies, and P24 antigen is NONREACTIVE. No confirmatory testing is required. Blood Venous blood specimen / Unknown Venipuncture / Unknown 06/14/2025 6:31 PM EDT 06/14/2025 7:05 PM EDT Luis Angel Bee MD LAB BLOOD ORDERABLES Nadia l Result [facility] [address] [place] [address] * Hepatitis C Virus (HCV) Quantitative PCR (06/14/2025 6:31 PM EDT) Pathologist [facility] Hepatitis C Virus (HCV) Quantitative Interpretation Not Detected Not Detected. 06/18/2025 10:[address] [facility] Blood Venous blood specimen / Unknown Venipuncture / Unknown 06/14/2025 6:31 PM EDT 06/15/2025 8:[address] [facility] - 06/18/2025 10:15 PM EDT The Rivera M2000 HCV test is a Real Time [...] assay is FDA approved for clinical use. Luis Angel Bee MD LAB BLOOD [place] [address] * Hepatitis C Antibody (06/14/2025 6:31 PM EDT) Pathologist [facility] Hepatitis C Antibody Negative Negative 06/14/2025 7:[address] [facility] Blood Venous blood specimen / Unknown Venipuncture / Unknown 06/14/2025 6:31 PM EDT 06/14/2025 7:05 PM EDT Result Neto Bee MD LAB BLOOD ORDERABLES Nadia l Result Performing Organization Address [facility] Co de Phone Number [facility] [address] [place] [address] * Hepatitis B Surface Antigen (06/14/2025 6:31 PM EDT) Hepatitis B Surf Antigen Negative Negative 06/14/2025 8:[address] [facility] Blood Venous blood specimen / Unknown Venipuncture / Unknown 06/14/2025 6:31 PM EDT 06/14/2025 7:05 PM EDT Result Neto Bee MD LAB BLOOD ORDERABLES Nadia l Result Performing Organization Address [facility] de Phone Number [facility] [address] [place] [address] * (ABNORMAL) Hepatitis B Surface Antibody, Quantitative (06/14/2025 6:31 PM EDT) Pathologist [facility] Hepatitis B Surface Antibody, Quantitative 34.47(H) NonReacti ve: <8, Grayzone: 8 - <12, Reactive: >= 12 mIU/mL 06/14/2025 8:18 PM EDT [facility] Comment: Reactive. Individual is considered immune to HBV infection. Blood Venous blood specimen / Unknown Venipuncture / Unknown 06/14/2025 6:31 PM EDT 06/14/2025 7:05 PM EDT Result Neto Bee MD LAB BLOOD ORDERABLES Nadia l Result Performing Organization Address [facility] Co de Phone Number [facility] [address] [place] [address] * Hepatitis B Core Total Antibody IgG,IgM (06/14/2025 6:31 PM EDT) Hepatitis B Core Total Antibody IgG,IgM Negative Negative 06/14/2025 8:18 PM EDT [facility] Blood Venous blood specimen / Unknown Venipuncture / Unknown 06/14/2025 6:31 PM EDT 06/14/2025 7:05 PM EDT Result [facility] us Luis Angel Bee MD LAB BLOOD ORDERABLES Nadia l Result Performing Organization Address [facility] Co de Phone Number [facility] [address] [place] [address] * (ABNORMAL) Vitamin D 25 Hydroxy (06/14/2025 6:31 PM EDT) Vitamin D 25 Hydroxy 10.8(L) 20.0 - 80.0 ng/mL 06/14/2025 8:19 PM EDT [facility] Blood Venous blood specimen / Unknown Venipuncture / Unknown 06/14/2025 6:31 PM EDT 06/14/2025 7:05 PM EDT Narrative [facility] - 06/14/2025 8:19 PM EDT Testing performed on Arrively, standardized against NIST SRM 2972. When testing [...] ORDERABLES Nadia l Result Performing Organization Address [facility] Co de Phone Number [facility] [address] [place] [address] * (ABNORMAL) CBC and Differential (06/14/2025 6:31 PM EDT) WBC Count 7.95 3.70 - 10.30 10*3/uL LAB HEMATOLOGY METHOD 06/14/2025 7:[address] [facility] RBC Count 2.90(L) 4.60 - 6.10 10*6/uL LAB HEMATOLOGY METHOD 06/14/2025 7:24 PM EDT [facility] HGB 10.1(L) 13.7 - 17.5 g/dL LAB HEMATOLOGY METHOD 06/14/2025 7:24 PM EDT [facility] HCT 29.7(L) 40.0 - 51.0 % LAB HEMATOLOGY METHOD 06/14/2025 7:24 PM EDT [facility] Platelet Count 56(L) 155 - 369 10*3/uL LAB HEMATOLOGY METHOD 06/14/2025 7:24 PM EDT [facility] MCV 102(H) 79 - 98 fL LAB HEMATOLOGY METHOD 06/14/2025 7:24 PM EDT [facility] MCH 34.8(H) 26.0 - 32.0 pg LAB HEMATOLOGY METHOD 06/14/2025 7:24 PM EDT [facility] MCHC 34.0 30.7 - 35.5 g/dL LAB HEMATOLOGY METHOD 06/14/2025 7:24 PM EDT [facility] RDW 16.9(H) 11.5 - 14.5 % LAB HEMATOLOGY METHOD 06/14/2025 7:24 PM EDT [facility] MPV 11.5 8.8 - 12.5 fL LAB HEMATOLOGY METHOD 06/14/2025 7:24 PM EDT [facility] nRBC 0.0 <=0.0 per 100 WBCs LAB HEMATOLOGY METHOD 06/14/2025 7:24 PM EDT [facility] Differential Type Automated LAB HEMATOLOGY METHOD 06/14/2025 7:24 PM EDT [facility] Neutrophils % 56 % LAB HEMATOLOGY METHOD 06/14/2025 7:24 PM EDT [facility] Lymphocytes % 25 % LAB HEMATOLOGY METHOD 06/14/2025 7:24 PM EDT [facility] Monocytes % 13 % LAB HEMATOLOGY METHOD 06/14/2025 7:24 PM EDT [facility] Eosinophils % 4 % LAB HEMATOLOGY METHOD 06/14/2025 7:24 PM EDT [facility] Basophils % 1 % LAB HEMATOLOGY METHOD 06/14/2025 7:24 PM EDT [facility] Immature Granulocytes % 1 % LAB HEMATOLOGY METHOD 06/14/2025 7:24 PM EDT [facility] Neutrophils Absolute 4.56 1.60 - 6.10 10*3/uL LAB HEMATOLOGY METHOD 06/14/2025 7:24 PM EDT [facility] Lymphocytes Absolute 1.97 1.20 - 3.90 10*3/uL LAB HEMATOLOGY METHOD 06/14/2025 7:24 PM EDT [facility] Monocytes Absolute 1.03(H) 0.30 - 0.90 10*3/uL LAB HEMATOLOGY METHOD 06/14/2025 7:24 PM EDT [facility] Eosinophils Absolute 0.31 0.00 - 0.50 10*3/uL LAB HEMATOLOGY METHOD 06/14/2025 7:24 PM EDT [facility] Basophils Absolute 0.04 0.00 - 0.10 10*3/uL LAB HEMATOLOGY METHOD 06/14/2025 7:24 PM EDT [facility] Immature Granulocytes Absolute 0.04 0.00 - 0.06 10*3/uL LAB HEMATOLOGY METHOD 06/14/2025 7:24 PM EDT [facility] Blood Venous blood specimen / Unknown Venipuncture / Unknown 06/14/2025 6:31 PM EDT 06/14/2025 7:06 PM EDT Narrative [facility] - 06/14/2025 7:24 PM EDT Therapeutic decision making should be based on absolute values, rather than percentages. us Luis Angel Bee MD LAB BLOOD ORDERABLES Nadia l Result [facility] [address] [place] [address] * Type and screen (06/14/2025 6:31 PM EDT) ABO/Rh A Positive 06/14/2025 6:13 PM EDT [facility] Antibody Screen Negative 06/14/2025 6:13 PM EDT [facility] Specimen Expiration 06/17/2025 23:59 06/14/2025 6:13 PM EDT [facility] Blood Venous blood specimen / Unknown Venipuncture / Unknown 06/14/2025 6:31 PM EDT 06/14/2025 7:08 PM EDT us Luis Angel Bee MD LAB BLOOD BANK TEST ORDER MARYA Final Result Performing Organization Address City/[facility]/ZIP Co de Phone Number BLOOD BANK [address] * (ABNORMAL) Protime-INR (06/14/2025 6:31 PM EDT) Prothrombin Time 25.9(H) 12.0 - 14.3 sec LAB COAGULATION METHOD 06/14/2025 7:23 PM EDT [facility] INR 2.3(H) 0.9 - 1.1 LAB COAGULATION METHOD 06/14/2025 7:23 PM EDT [facility] Blood Venous blood specimen / Unknown Venipuncture / Unknown 06/14/2025 6:31 PM EDT 06/14/2025 7:05 PM EDT Narrative [facility] - 06/14/2025 7:23 PM EDT OPTIMAL INR RANGES FOR PATIENT ON ORAL ANTICOAGULANT THERAPY Prevention of venous thromboembolism INR 2.0 to 3.0 In patients with heart disease: Atrial fibrillation INR 2.0 to 3.0 Valvular heart disease INR 2.0 to 3.0 Tissue heart valves INR 2.0 to 3.0 Mechanical prosthetic valves INR 2.5 to 3.5 Prevention of recurrent WI INR 2.5 to 3.5 us Luis Angel Bee MD LAB BLOOD ORDERABLES Nadia l Result Performing Organization Address [facility] Co de Phone Number [facility] [address] [place] [address] * (ABNORMAL) APTT (06/14/2025 6:31 PM EDT) aPTT 47(H) 25 - 35 sec LAB COAGULATION METHOD 06/14/2025 7:23 PM EDT [facility] Blood Venous blood specimen / Unknown Venipuncture / Unknown 06/14/2025 6:31 PM EDT 06/14/2025 7:05 PM EDT us Luis Angel Bee MD LAB BLOOD ORDERABLES Nadia l Result [facility] [address] [place] [address] * (ABNORMAL) Comprehensive metabolic panel (06/14/2025 6:31 PM EDT) Glucose, Plasma 86 74 - 99 mg/dL 06/14/2025 7:35 PM EDT [facility] BUN, Plasma 21 8 - 23 mg/dL 06/14/2025 7:35 PM EDT [facility] Creatinine, Plasma 1.28(H) 0.70 - 1.20 mg/dL 06/14/2025 7:35 PM EDT [facility] BUN/Creatinine Ratio 16 06/14/2025 7:35 PM EDT [facility] Sodium, Plasma 135(L) 136 - 145 mmol/L 06/14/2025 7:35 PM EDT [facility] Potassium, Plasma 3.9 3.6 - 4.9 mmol/L 06/14/2025 7:35 PM EDT [facility] Chloride, Plasma 104 97 - 107 mmol/L 06/14/2025 7:35 PM EDT [facility] CO2, Plasma 24 22 - 29 mmol/L 06/14/2025 7:35 PM EDT [facility] Anion Gap 7 6 - 16 mmol/L 06/14/2025 7:35 PM EDT [facility] Total Calcium, Plasma 7.6(L) 8.9 - 10.2 mg/dL 06/14/2025 7:35 PM EDT [facility] Total Protein 5.6(L) 6.3 - 7.9 g/dL 06/14/2025 7:35 PM EDT [facility] Albumin, Plasma 1.8(L) 3.5 - 5.2 g/dL 06/14/2025 7:35 PM EDT [facility] AST, Plasma 38 10 - 50 U/L 06/14/2025 7:35 PM EDT [facility] ALT, Plasma 31 10 - 50 U/L 06/14/2025 7:35 PM EDT [facility] Alkaline Phosphatase, Plasma 178(H) 40 - 115 U/L 06/14/2025 7:35 PM EDT [facility] Total Bilirubin, Plasma 6.6(H) 0.2 - 1.1 mg/dL 06/14/2025 7:35 PM EDT [facility] eGFRcr 62.5 mL/min/1.7 3m*2 06/14/2025 7:35 PM EDT [facility] Comment:Reported eGFRcr in m L/min/1.73m2 is based the CKD-EPI 2020 equation that does not use a race coefficient. Blood Venous blood specimen / Unknown Venipuncture / Unknown 06/14/2025 6:31 PM EDT 06/14/2025 7:05 PM EDT us Luis Angel Bee MD LAB BLOOD ORDERABLES Nadia crockett Result [facility] [address] [place] [address] documented in this encounter Visit Diagnoses Diagnosis [...] documented as of this encounter Care Teams Tow Motor Operator Relationship Specialty Start Date End Date Chris Medel MD [address] [place] [address] PCP - General 03/14/25 Ruma Hernández APRN [address] [address] Referring Physician Gastroenterology 07/30/23 documented as of this encounter
--- OUTSIDE RECORDS SUMMARY | 2025-06-15 23:59 | XMS_ITS | Encounter Summary ---
Author Organization [facility] Address [address] [place] [address] Care Team Providers Care Mica Plate Layer Hand Name Role Phone Ruma Hernández TECHNICAL AID Unavailable [phone] Chris Medel MD Primary Care Provider [phone] Encounter Details Date Type Department Care Team (Late st Contact Info) Description 06/15/2025 11:59 PM EDT Anesthesia Event [facility] [address] [place] [address] Mary Castellon, LAISHA [address] [facility] [address] [place] [address] Fanta Morrissey APRN [address] [place] [address] Anesthesia Record Procedure Summary Procedure Name Responsible Anesthesiologist Anesthesia Start Time Anesthesia Stop Time TRANSPLANT, LIVER Events No events on file. Meds * Agents No agents on file. * Blood No blood administrations on file. Lines, Drains, and Airways No LDAs on file. documented in this encounter Social History Tobacco Use Types Packs/Day Years [...] week 02/19/2025 How often do you attend [facility] or mandaeism services? More than 4 times per year 02/19/2025 Do you belong to any clubs o r organizations such as episcopalian groups, unions, fraternal or athletic groups, or [...] any time in the past 12 m [facility], were you homeless or [...] How often do you attend chur or mandaeism services? More than 4 times per year 06/15/2025 Do you belong to any clubs o r organizations such as episcopalian groups, unions, fraternal or athletic groups, or [...] and heating? Not hard at all 06/15/2025 [facility] of Occupat ional Health - [...] any time in the past 12 m [facility], were you homeless or [...] drink first t luisa in the morning (EYE-REACTOR KETTLE OPERATOR) to steady your nerves or to [...] Assessment Author 0 06/15/2025 9:39 AM EDT Dear, Fili Conley RN * Question Answer Date of Assessment Author Q1: How often do you have a drink containing alcohol? Never 06/15/2025 9:39 AM EDT DearLisa R N Q2: How many drinks containing alcohol do you have on a typical day when you are drinking? Patient does not drink 06/15/2025 9:39 AM EDT DearLisa RN Q3: How often do you have six or more drinks on one occasion? Never 06/15/2025 9:39 AM EDT VikyrLisa R N documented as of this encounter Miscellaneous Notes * Anesthesia Preprocedure Evaluation - Mary Castellon PA - 06/15/2025 10:05 AM EDT Procedure Information Date/Time: 06/15/251514 Procedure: TRANSPLANT, LIVER Location: [facility] OR [facility] / [facility] OR Surgeons: Luis Angel Bee MD [facility] David Pop is a 65 y.o. male with body mass index is 36.69 kg/m??. who presents with Alcoholic cirrhosis, unspecified whether ascites present (CMS/HCC) now for above procedure PMH: alcohol-associated cirrhosis, history of Renal Stones, GERD, Gout, hypocalcemia, and history of iron overload requiring therapeutic phlebotomy, left inguinal hernia, obesity *Plt 56 ECHO 06/13/25: LVEF 60-65%, grade II (moderate) diastolic dysfunction. Left Atrium: The left atrial size is mildly increased with an indexed volume of 35-41 mL/m2. Intravenous injection of agitated saline demonstrate late appearance of moderate amount of bubbles in the left heart consistent with moderate degree of intrapulmonary shunting. NPO STATUS: Activity Level/METS: Type & Screen Expires: 06/17 Lab Results Component Value Date ABO A Positive 06/14/2025 ALLERGIES Allergies[1] MEDICATIONS Outpatient Current Outpatient Medications Medication Instructions calcitriol (ROCALTROL) [...] mg, Oral, Daily Xifaxan 550 MG tablet Take 1 tablet by mouth 2 times a day. Scheduled Current Scheduled Medications[2] PRNs Current PRN Medications[3] SURGICAL HX: Surgical History[4] SOCIAL HX: Social History[5] OBJECTIVE DATA Blood pressure 119/73, pulse 67, temperature 36.3 ??C (97.4 ??F), temperature source Oral, resp. rate 16, height 1.676 m (5' 6 ), weight 103 kg (227 lb 4.7 oz), SpO2 96%. LABS Lab Results Component Value Date WBC 7.95 06/14/2025 HGB 10.1 (L) 06/14/2025 HCT 29.7 (L) 06/14/2025 MCV 102 (H) 06/14/2025 PLT 56 (L) 06/14/2025 Lab Results Component Value Date CALCIUM 7.6 (L) 06/14/2025 BUN 21 06/14/2025 CREATININE 1.28 (H) 06/14/2025 BCR 16 06/14/2025 NA 135 (L) 06/14/2025 K 3.9 06/14/2025 CL 104 06/14/2025 CO2 24 06/14/2025 ANIONGAP 7 06/14/2025 aPTT Date Value Ref Range Status 06/14/2025 47 (H) 25 - 35 sec Final INR Date Value Ref Range Status 06/14/2025 2.3 (H) 0.9 - 1.1 Final Lab Results Component Value Date HGBA1C 4.6 04/11/2024 GLUCOSE 86 06/14/2025 EKG No results found for this or any previous visit (from the past 4464 hours). ECHO Echo, Adult Transthoracic (TTE) Complete Result Date: 06/13/2025 Left Ventricle: The left ventricle is normal size. There is normal left ventricular myocardial thickness and mass. No left ventricular mass or thrombus is seen. The left ventricular systolic functionis normal. The LVEF is visually estimated at 60 - 65%. The diastolic function is abnormal. There isgrade II (moderate) diastolic dysfunction. The left ventricular filling pressure is elevated. The left ventricular wall motion is normal and no regional wall motion abnormalities are seen. Right Ventricle: The right ventricle is normal in size. The right ventricular systolic function is normal. Theestimated right ventricular systolic pressure is >/= 38 mmHg. Left Atrium: The left atrial size is mildly increased with an indexed volume of 35-41 mL/m2. Intravenous injection of agitated saline demonstrate late appearance of moderate amount of bubbles in the left heart consistent with moderatedegree of intrapulmonary shunting. Compared to the most recently available prior study, and allowing for differences in image quality and technique, the LV diastolic function is worse and the degree of transpulmonary shunt is increased. CXR: Physical Exam Anesthesia Plan Anesthesia Evaluation [1] Allergies Allergen Reactions Lisinopril Cough [2] mupirocin, 1 Application, Each Nostril, BID pantoprazole, 40 mg, Oral, Daily before breakfast rifAXIMin, 550 mg, Oral, BID [3] [4] Past Surgical History: Procedure Laterality Date HERNIA REPAIR 1979 [5] Social History Tobacco Use Smoking status: Never Passive exposure: Past Smokeless tobacco: Former Types: Chew Quit date: 11/15/2019 Tobacco comments: not sure of exact date quit chewing but several years ago Vaping Use Vaping status: Never Used Substance Use Topics Alcohol use: Not Currently Comment: quit February 2023 Drug use: Never documented in this encounter Plan of Treatment Upcoming Encounters Date Type Department Care Team (Late st Contact Info) Description 07/11/2025 9:00 AM EDT Clinical Support [facility] [place] [address] [place] [address] 07/11/2025 9:30 AM EDT Social Work [facility] [place] [address] [place] [address] [place] [address] 07/11/2025 10:30 AM EDT Office Visit [facility] [place] [address] [place] [address] Portia Maguire MD [address] [place] [address] 10/03/2025 12:45 PM EST Office Visit Medical Office Building Urology [address], [address] [place] [address] Suhail Brock MD [address] [place] [address] 10/18/2025 4:20 PM EST Office Visit [facility] [address] [facility], [address] [place] [address] Moustapha Katz MD [address] [facility] [address] [place] [address] documented as of this encounter Visit Diagnoses [...] documented as of this encounter Care Teams Mica Plate Layer Hand Relationship Specialty Start Date End Date Chris Medel MD [address] [place] [address] PCP - General 03/14/25 Ruma Hernández APRN [address] [facility] [address] [place] [address] Referring Physician Gastroenterology 07/30/23 documented as of this encounter
--- OUTSIDE RECORDS SUMMARY | 2025-06-20 07:40 | XMS_ITS | Encounter Summary ---
Author Organization Healthcare Address [address] [place] [address] Care Team Providers Care Network Technology Instructor Name Role Phone Ruma Hernández WORK COUNSELOR Unavailable [phone] Chris Medel MD Primary Care Provider [phone] Encounter Details Date Type Department Care Team (Late st Contact Info) Description 06/14/2025 Results Follow-Up [facility] [address] [place] [address] Meaghan Le, RN [facility] LIVER [id number] [address] [place] [address] Social History Tobacco Use Types [...] 02/19/2025 How often do you attend [facility] or protestant services? More than 4 [...] in a mcfp (including now)? No 02/19/2025 Humiliation, Afraid, Rape, [...] often do you attend chur ch or protestant services? More than 4 times [...] and heating? Not hard at all 06/15/2025 [facility] [place] [place] of Occupat ional Health - Occupational Stress [...] living in a mcfp (including now)? No 06/15/2025 CAGE ASSESSMENT Answer [...] drink first t luisa in the morning (EYE-ADMINISTRATIVE EXECUTIVE) to steady your nerves or to get rid of a hangover? 0 06/14/2025 CAGE Questionnaire Score 0 025 Utilities Answer Date Recorded In the past 12 months has th [employer], gas, oil, or water [employer] threatened to shut off services in your [...] Description 07/11/2025 9:00 AM EDT Clinical Support [facility]plant [place] [address] [place] [address] 07/11/2025 9:30 AM EDT Social Work [facility] [place] [address] [place] [address] [place] [address] 07/11/2025 10:30 AM EDT Office Visit [facility] [place] [address] [place] [address] Portia Maguire MD [address] [facility] [address] [place] [address] 10/03/2025 12:45 PM EST Office Visit Medical Office Building Urology [address] [facility], [address] [place] [address] Suhail Brock MD [address] [place] [address] 10/18/2025 4:20 PM EST Office Visit [facility] [place] [facility] [address] [facility], [address] [place] [address] Moustapha Katz MD [address] [facility] [address] [place] [address] documented as of this encounter Visit Diagnoses [...] documented as of this encounter Care Teams Network Technology Instructor Relationship Specialty Start Date End Date Chris Medel MD [address] [place] [address] PCP - General 03/14/25 Ruma Hernández APRN 17[address] [facility] 202 [place] [address] Referring Physician Gastroenterology 07/30/23 documented as of this encounter
--- OUTSIDE RECORDS SUMMARY | 2025-06-20 07:40 | XMS_ITS | Encounter Summary ---
[facility] [address] [place] [address] Care Team Providers Care Marketing Communications Assistant Name Role Phone KaronUrban Hosea CAMARA Primary Care Provider [phone] Encounter Details Date Type Department Care Team (Late st Contact Info) Description 10/14/2023 Telephone [facility] GASTROENTEROLOGY [address] [facility] [address] [place] [address] Ruma Hernández, WET PROCESS TECHNICIAN 17[address] [facility] [address] [place], [place] [id number] Social History Tobacco Use Types Packs/Day Years [...] on filedocumented in this encounter Care Teams Marketing Communications Assistant Relationship Specialty Start Date End Date Urban Brantley DO [address] [place] [address] PCP - General Internal Medicine 03/22/23 documented as of this encounter
--- OUTSIDE RECORDS SUMMARY | 2025-06-20 07:40 | XMS_ITS | Clinical Summary ---
Author Organization [facility] Address [address] [place] [address] Care Team Providers Care Plug Wirer Name Role Phone ToniUrban morataya DO Primary Care Provider [phone] Allergies Active Allergy Reactions Criticality Noted Date [...] Most Recently Relevant to Health Maintenance Insurance * Guarantor: David Pop Account Type Relation to Patient Date of Phone Billing Address Personal/Family Self 1960 [address] [facility] [address] [place] [id number] [facility] BLUE SHIELD PPO Member Subscriber Plan / Payer (Ef fective 2023-Present) Name:David Pop Relation to Subscriber:Self Name:David Pop Payer ID:[id number] ([facility]) Type:Not on file Address: [address] [place] [id number] Care Teams Plug Wirer Relationship Specialty Start Date End Date Urban Brantley DO [address] [place] [address] PCP - General Internal Medicine 03/22/23
--- OUTSIDE RECORDS SUMMARY | 2025-06-20 07:40 | XMS_ITS | Encounter Summary ---
Author Organization Healthcare Address [address] [place] [address] Care Team Providers Care Quality Auditor Name Role Phone Ruma Hernández MID LEVEL JAVA DEVELOPER Unavailable [phone] Chris Medel MD Primary Care Provider [phone]- [phone] Encounter Details Date Type Department Care Team [...] often do you attend chur ch or caodaism services? More than 4 times [...] often do you attend chur ch or caodaism services? More than 4 times [...] drink first t luisa in the morning (EYE-HARVESTING SUPERVISOR) to steady your nerves or to get rid of a hangover? 0 06/14/2025 CAGE Questionnaire Score 0 025 Utilities Answer Date Recorded In the past 12 months has th e [employer], gas, oil, or water company threatened to [...] Description 07/11/2025 9:00 AM EDT Clinical Support [facility] [address] [place] [address] 07/11/2025 9:30 AM EDT Social Work [facility] [address] [place] [address] ReynaldoLiliane [place] [id number] 07/11/2025 10:30 AM EDT Office Visit [facility] [address] [place] [facility] [address] [place] [address] Portia Maguire MD [address] [facility] [address] [place] [address] 10/03/2025 12:45 PM EST Office Visit Medical Office Building Urology [address] [facility], [address] [place] [address] Suhail Brock MD [address] [place] [facility] [address] [place] [address] 10/18/2025 4:20 PM EST Office Visit [facility] [address] [place] [address] Moustapha Katz MD [address] [facility] [address] [place] [address] documented as of this encounter [...] documented as of this encounter Care Teams Quality Auditor Relationship Specialty Start Date End Date Chris Medel MD [address] [place] [address] PCP - General 03/14/25 Ruma Hernández APRN [address] [place] [address] Referring Physician Gastroenterology 07/30/23 documented as of this encounter
--- OUTSIDE RECORDS SUMMARY | 2025-06-20 07:40 | XMS_ITS | Encounter Summary ---
[facility] [address] [place] [address] Care Team Providers Care Fire Sprinkler Designer Name Role Phone KaronUrban Hosea CAMARA Primary Care Provider [phone] Encounter Details Date Type Department Care Team (Late st Contact Info) Description 10/14/2023 Telephone [facility] GASTROENTEROLOGY [address] [facility] 202 [place] [address] Ruma Hernández, PUBLIC HEALTH TRAINING ASSISTANT 17[address] [facility] 202 [place], [place] [id number] Social History Tobacco Use Types Packs/Day Years [...] on filedocumented in this encounter Care Teams Fire Sprinkler Designer Relationship Specialty Start Date End Date Urban Brantley DO [address] [place] [address] PCP - General Internal Medicine 03/22/23 documented as of this encounter
--- OUTSIDE RECORDS SUMMARY | 2025-06-20 07:40 | XMS_ITS | Encounter Summary ---
Author Organization Healthcare Address [address] [place] [address] Care Team Providers Care Electronics Tech Name Role Phone uRma Hernández AIRCRAFT PILOT Unavailable [phone] Chris Medel MD Primary Care Provider [phone] Encounter Details Date Type Department Care Team [...] any clubs o r organizations such as restorationism groups, unions, fraternal or athletic groups, or [...] Recorded Patient Health Questionnaire-2 Score 0 06/08/2025 [facility] - Occupational Stress Questionnaire Answer Date Recorded [...] time in the past 12 m [facility], were you homeless or living in a senior living (including now)? No 02/19/2025 CAGE ASSESSMENT Answer [...] drink first t luisa in the morning (EYE-HEALTH SERVICES DIRECTOR) to steady your nerves or to [...] 07/11/2025 9:00 AM EDT Clinical Support [facility] [place] [address] [place] [address] 07/11/2025 9:30 AM EDT Social Work [facility] [place] [address] [facility] [address] [place] [address] [place] [address] 07/11/2025 10:30 AM EDT Office Visit [facility] [place] [address] [place] [address] Portia Maguire MD [address] [facility] [address] [place] [address] 10/03/2025 12:45 PM EST Office Visit Medical Office Building Urology [address] [facility], [address] [place] [address] Suhail Brock MD [address] [facility] [address] [place] [address] 10/18/2025 4:20 PM EST Office Visit [facility] [address] [facility], [address] [place] [address] Moustapah Katz MD [address] [facility] [address] [place] [address] documented as of this encounter [...] documented as of this encounter Care Teams Electronics Tech Relationship Specialty Start Date End Date Chris Medel MD [address] [place] [address] PCP - General 03/14/25 Ruma Hernández APRN [address] [place] [address] Referring Physician Gastroenterology 07/30/23 documented as of this encounter
--- OUTSIDE RECORDS SUMMARY | 2025-06-20 07:40 | XMS_ITS | Encounter Summary ---
Author Organization Healthcare Address [address] [place] [address] Care Team Providers Care Stage Set Up Worker Name Role Phone Ruma Hernández RADIO BROADCASTER Unavailable [phone] Chris Medel MD Primary Care Provider [phone] Encounter Details Date Type Department Care Team (Late st Contact Info) Description 06/13/2025 Telephone [facility] [address] [place] [address] Zeferino Trejo, PharmD Social History [...] a long term (including now)? No 02/19/2025 Humiliation, Afraid, Rape, [...] often do you attend chur ch or methodist services? More than 4 times [...] and heating? Not hard at all 06/15/2025 [facility] of Occupat ional Health [...] in a long term (including now)? No 06/15/2025 CAGE ASSESSMENT Answer [...] drink first t luisa in the morning (EYE-BRACE END MAINSPRING FORMER) to steady your nerves or to get rid of a hangover? 0 06/14/2025 CAGE Questionnaire Score 0 025 Utilities Answer Date Recorded In the past 12 months has th [employer], gas, oil, or water company threatened to [...] 07/11/2025 9:00 AM EDT Clinical Support [facility] [address] [facility] [address] [place] [address] 07/11/2025 9:30 [address] EDT Social Work [facility] [address] [place] [address] [place] [address] 07/11/2025 10:30 AM EDT Office Visit [facility] [address] [facility] [address] [place] [address] Portia Maguire MD [address] [facility] [address] [place] [address] 10/03/2025 12:45 PM EST Office Visit Medical Office Building Urology [address] [facility], [address] [place] [address] Suhail Brock MD [address] [facility] [address] [place] [address] 10/18/2025 4:20 PM EST Office Visit [facility] [address] [facility], [address] [place] [address] Moustapha Katz MD [address] [facility] [address] [place] [address] documented as of this encounter [...] documented as of this encounter Care Teams Stage Set Up Worker Relationship Specialty Start Date End Date Chris Medel MD [address] [place] [address] PCP - General 03/14/25 Ruma Hernández APRN 1780 [facility] 202 [place] [address] Referring Physician Gastroenterology 07/30/23 documented as of this encounter
--- OUTSIDE RECORDS SUMMARY | 2025-06-20 07:40 | XMS_ITS | Encounter Summary ---
Author Organization Healthcare Address [address] [place] [address] Care Team Providers Care Director Process Improvement Name Role Phone Ruma Hernández ELECTRICIAN MAINTENANCE Unavailable [phone] Chris Medel MD Primary Care Provider [phone] Encounter Details Date Type Department Care Team (Late st Contact Info) Description 05/01/2025 Results Follow-Up [facility] [address] [place] [address] Meaghan Le, RN [facility] LIVER [id number] [address] [place] [address] Social History Tobacco Use Types [...] How often do you attend chur or anabaptist services? More than 4 times [...] Recorded Patient Health Questionnaire-2 Score 0 03/14/2025 [facility] [place] [facility] - Occupational Stress Questionnaire Answer [...] Support [facility]plant [place] [address] [facility] [address] [place] [address] 07/11/2025 9:30 AM EDT Social Work [facility] [place] [address] [facility] [address] [place] [address] Liliane Jacobs [place], [place] [id number] 07/11/2025 10:30 AM EDT Office Visit [facility] [place] [address] [facility] [address] [place] [address] Portia Maguire MD [address] [facility] [address] [place] [address] 10/03/2025 12:45 PM EST Office Visit Medical Office Building Urology [address] [facility], [address] [place] [address] Suhail Brock MD [address] [facility] [address] [place] [address] 10/18/2025 4:20 PM EST Office Visit [facility] [address] [facility], [address] [place] [address] Moustapha Katz MD [address] [facility] [address] [place] [address] documented as of this encounter [...] as of this encounter Care Teams Director Process Improvement Relationship Specialty Start Date End Date Chris Medel MD [address] [place] [address] PCP - General 03/14/25 Ruma Hernández APRN 1780 [facility] 202 [place] [address] Referring Physician Gastroenterology 07/30/23 documented as of this encounter
--- OUTSIDE RECORDS SUMMARY | 2025-06-20 07:40 | XMS_ITS | Encounter Summary ---
Author Organization Healthcare Address [address] [place] [address] Care Team Providers Care Electric Motor Controls Assembler Name Role Phone Ruma Hernández AIR TECHNICIAN Unavailable [phone] Chris Medel MD Primary Care Provider [phone] Encounter Details Date Type Department Care Team (Late st Contact Info) Description 06/14/2025 Results Follow-Up [facility] Transplant [facility] [address] [place] [address] Meaghan Le, RN [facility] LIVER [id number] [address] [place] [address] Social History Tobacco Use Types [...] 02/19/2025 How often do you attend [facility] or moravian services? More than 4 [...] in a prison (including now)? No 02/19/2025 Humiliation, Afraid, Rape, [...] often do you attend chur ch or moravian services? More than 4 times [...] hard at all 06/15/2025 [facility] of Occupat ional Health [...] drink first t luisa in the morning (EYE-TOXICOLOGIST) to steady your nerves or to get rid of a hangover? 0 06/14/2025 CAGE Questionnaire Score 0 025 Utilities Answer Date Recorded In the past 12 months has th [employer], gas, oil, or water [employer] threatened to shut off services in your [...] Description 07/11/2025 9:00 AM EDT Clinical Support [facility] [place] [address] [place] [address] 07/11/2025 9:30 AM EDT Social Work [facility] [place] [address] [place] [address] [place] [address] 07/11/2025 10:30 AM EDT Office Visit [facility] [place] [address] [place] [address] Portia Maguire MD [address] [place] [address] 10/03/2025 12:45 PM EST Office Visit Medical Office Building Urology [address] [facility], [address] [place] [address] Suhail Brock MD [address] [place] [address] 10/18/2025 4:20 PM EST Office Visit [facility] Metabolism [address], [address] [place] [address] Moustapha Katz MD [address] [place] [address] documented as of this encounter [...] documented as of this encounter Care Teams Electric Motor Controls Assembler Relationship Specialty Start Date End Date Chris Medel MD [address] [place] [address] PCP - General 03/14/25 Ruma Hernández APRN 17[address] [facility] [address] [place], [place] [address] Referring Physician Gastroenterology 07/30/23 documented as of this encounter
--- OUTSIDE RECORDS SUMMARY | 2025-06-20 07:41 | XMS_ITS | Clinical Summary ---
Author Organization [facility] Address [address] [place] [address] Care Team Providers Care Reprographics Technician Name Role Phone Ruma Hernández NETWORKING SPECIALIST Unavailable [phone] Chris Medel MD Primary Care Provider [phone] Allergies Active Allergy Reactions Criticality Noted Date [...] 5 Active ergocalciferol (Vitamin D-2) 1.25 MG (87002 UT) capsule Take 1 capsule by mouth [...] Anesthesia Event [facility] A OPERATING ROOM [address] [place] [address] Mary Castellon PA Benson, Cathryn M, DEEP 06/14/2025 3:47 PM EDT - 06/15/2025 6:14 PM EDT Hospital Encounter [facility] H Inpatient [address] [place] [address] Luis Angel Bee MD Alcoholic cirrhosis, unspecified whether ascites present (CMS/HCC) (Primary Dx) Discharge Disposition: Home or Self Care 06/14/2025 Travel 06/14/2025 Results [facility]-Up [facility] [address] [facility] [address] [place] [address] Meaghan Le, RN 06/14/2025 Results [facility]-Up [facility] [address] [facility] [address] [place] [phone] Meaghan Le RN 06/13/2025 12:57 PM EDT - 06/13/2025 11:59 PM EDT Hospital Encounter [facility] G Radiology [address] [place] [address] Chris Knott RN Pre-liver transplant, listed Discharge Disposition: Home or Self Care 06/13/2025 10:36 AM EDT - 06/13/2025 12:56 PM EDT Hospital Encounter Cardiac Imaging [address] [place] [id number] Pre-liver transplant, listed Discharge Disposition: Home or Self Care 06/13/2025 9:56 AM EDT - 06/13/2025 10:35 AM EDT Hospital Encounter [facility] A Radiology [address] [place] [address] Alcoholic cirrhosis, unspecified whether ascites present (CMS/HCC) Discharge Disposition: Home or Self Care 06/13/2025 8:00 AM EDT Office Visit [facility] [place] [id number] [address] Portia Maguire MD Alcoholic cirrhosis, unspecified whether ascites present (CMS/HCC) (Primary Dx); Pre-liver transplant, listed; Alcoholic cirrhosis of liver with ascites (CMS/HCC); Cirrhosis of liver with ascites, unspecified hepatic cirrhosis type (CMS/HCC); Hemochromatosis associated with compound heterozygous mutation in HFE gene; Hepatic encephalopathy (CMS/HCC); Esophageal varices without bleeding, unspecified esophageal varices type (CMS/HCC) 06/13/2025 7:05 AM EDT - 06/13/2025 9:55 AM EDT Hospital Encounter [facility] [address], [address] [place] [address] Pre-liver transplant, listed Discharge Disposition: Home or Self Care 06/13/2025 Telephone [facility] [address] [place] [address] Zeferino Trejo, PharmD 06/13/2025 Travel 06/08/2025 12:20 PM EDT Office Visit [facility] [address], [address] [place] [address] Moustapha Katz MD Age-related osteoporosis without current pathological fracture (Primary Dx) 06/08/2025 8:35 AM EDT - 06/08/2025 11:59 PM EDT Hospital Encounter [facility] [address], [address] [place] [address] Other osteoporosis without current pathological fracture Discharge Disposition: Home or Self Care 06/08/2025 Travel 06/07/2025 Telephone [facility] [address] [facility], [address] [place] [address] Mary Chatman LPN 06/06/2025 Telephone [facility] Rad[facility] [address] [place] [address] Mell Masterson, RN 06/05/2025 Travel 06/05/2025 Results [facility] [place] [address] [place] [phone] Meaghan Le, RN 05/22/[address] [facility] [address] [address] Meaghan Le, RN 05/01/2025 Results [facility]-Up [facility] [address] [place] [address] Meaghan Le, RN 04/03/2025 Results [facility]-Up [facility] [place] [address] [place] [phone] Meaghan Le, RN 03/30/2025 Results [facility]-Up [facility] [place] [address] [facility] [place] [address] Meaghan Le RN from Last 3 Months Immunizations Immunization [...] often do you attend chur ch or latter-day services? More than 4 times per year 02/19/2025 Do you belong to any clubs o r organizations such as oriental orthodox groups, unions, fraternal or athletic groups, [...] in the past 12 m [facility], were you homeless or living in [...] 06/15/2025 How often do you attend [facility] or latter-day services? More than 4 times per year 06/15/2025 Do you belong to any clubs o r organizations such as oriental orthodox groups, unions, fraternal or athletic groups, [...] heating? Not hard at all 06/15/2025 [facility] of Occupat ional Health - Occupational Stress [...] in the past 12 m [facility], were you homeless or living in [...] drink first t luisa in the morning (EYE-REGIONAL EDUCATION MANAGER) to steady your nerves or to get rid of a hangover? 0 06/14/2025 CAGE Questionnaire Score 0 025 Utilities Answer Date Recorded In the past 12 months has th e [employer], gas, oil, or water company threatened to [...] 9:00 [address] EDT Clinical [address] [facility] [place] [address] [place] [address] 07/11/2025 9:[address] [facility] [place] [address] [place] [address] [place] [address] 07/11/2025 10:30 AM EDT Office Visit [facility] [place] [address] [place] [address] Portia Maguire MD [address] [place] [address] 10/03/2025 12:45 PM EST Office Visit Medical Office Building Urology [address], [address] [place] [address] Suhail Brock MD [address] [place] [address] 10/18/2025 4:20 PM EST Office Visit [facility] [address], [address] [place] [address] Moustapha Katz MD [address] [place] [address] Health Maintenance Due Date Last [...] - Risk 60-74 years 1-dose series) 2021 [id number] Vaccine ( - 2023- season) 2024 [facility]-Influenza Vaccine (#1) 2025 [facility]- SDOH Screenings 12/16/2025 [facility]-Adult SDOH Screenings 12/16/2025 06/15/2025 [facility]-Bone Density Scan 06/08/2026 06/08/2025, 024 [facility]-Depression Screening 06/08/2026 06/08/2025, 09/16 [facility]-HIV Screening Completed 06/14/2025, 04/11/2024 [facility]-Hepatitis C Screening Completed 2024, 06/14/2025, 08/03/2023 [facility]-Obesity Intervention Completed 025, 06/13/2025, 03/14/2025, Additional history exists HPV Vaccines Aged Out [...] STAT 06/14/2025 6:31 PM EDT HEPATITIS C VIRUS (HCV) QUANTITATIVE PCR STAT 06/14/2025 6:31 PM EDT HEPATITIS C [...] ECG Atrial Rate 65 BPM MUSE ECG NJ Interval 162 ms MUSE ECG QRSD Interval 86 ms MUSE ECG QT Interval 446 ms MUSE ECG QTC Interval 463 ms MUSE ECG P Liberty 4 degrees MUSE ECG R Liberty 58 degrees MUSE ECG T Wave Liberty 22 degrees MUSE ECG Diagnosis Normal sinus [...] Detected Not Detected 06/18/2025 5:43 AM EDT [facility] Swab (Axilla and Groin) Non-blood Collection / Unknown 06/14/2025 6:47 PM EDT 06/14/2025 7:49 PM EDT Narrative [facility] - 06/18/2025 5:43 AM EDT This PCR assay was developed and its performance characteristics determined by [facility] as appropriate for clinical purposes. This assay has not been cleared or approved by the FDA, but is performed in a CLIA regulated laboratory that is qualified to perform high-complexity testing. Luis Angel Bee MD LAB MICROBIOLOGY - GENERA L ORDERABLES Final Result Performing Organization Address City/[facility]/ZIP Co de Phone Number [facility] [address] [place] [address] * SARS CoV-2/COVID-19 by PCR - Rapid (06/14/2025 6:47 PM EDT) Pathologist [facility] SARS CoV-2/COVID-1 9 RNA PCR Result Not Detected Not Detected 06/14/2025 8:35 PM EDT [facility] Swab Nasopharyngeal structure / Unknown Non-blood Collection / Unknown 06/14/2025 6:47 PM EDT 06/14/2025 7:49 PM EDT Narrative [facility] - 06/14/2025 8:35 PM [...] symptoms consistent with COVID-19. us Luis Angel eBe MD LAB MICROBIOLOGY - GENERA L ORDERABLES Final Result Performing Organization Address [facility] Co de Phone Number [facility] [address] [place] [address] * (ABNORMAL) Hepatitis B Surface Antibody, Quantitative (06/14/2025 6:31 PM EDT) Hepatitis B Surface Antibody, Quantitative 34.47(H) NonReacti ve: <8, Grayzone: 8 - <12, Reactive: >= 12 mIU/mL 06/14/2025 8:18 PM EDT [facility] Comment: Reactive. Individual is considered immune to HBV infection. Blood Venous blood specimen / Unknown Venipuncture / Unknown 06/14/2025 6:31 PM EDT 06/14/2025 7:05 PM EDT us Luis Angel Bee MD LAB BLOOD ORDERABLES Nadia l Result Performing Organization Address [facility] Co de Phone Number [facility] [address] [place] [address] * Light Green Top (06/14/2025 6:31 PM EDT) Extra Hold for add-ons 06/14/2025 11:01 PM EDT [facility] Comment:Auto resulted. Blood Venous blood specimen / Unknown 06/14/2025 6:31 PM EDT 06/14/2025 8:12 PM EDT us Luis Angel Bee MD LAB BLOOD ORDERABLES Nadia l Result Performing Organization Address City/[facility]/ZIP Co de Phone Number [facility] [address] [place] [address] * Red Top (06/14/2025 6:31 PM EDT) Extra Hold for add-ons 06/14/2025 11:01 PM EDT [facility] Comment:Auto resulted. Blood Venous blood specimen / Unknown 06/14/2025 6:31 PM EDT 06/14/2025 8:12 PM EDT Luis Angel Bee MD LAB BLOOD ORDERABLES Nadia l Result Performing Organization Address [facility]/ZIP Co de Phone Number [facility] [address] [place] [address] * Hepatitis C Virus (HCV) Quantitative PCR (06/14/2025 6:31 PM EDT) Pathologist [facility] Hepatitis C Virus (HCV) Quantitative Interpretation Not Detected Not Detected. 06/18/2025 10:15 PM EDT [facility] Blood Venous blood specimen / Unknown Venipuncture / Unknown 06/14/2025 6:31 PM EDT 06/15/2025 8:51 AM EDT Narrative [facility] - 06/18/2025 10:15 PM EDT The [place] [...] MD LAB BLOOD ORDERABLES Nadia l Result [facility] [address] [place] [address] * HIV 1 & 2 Antibody/Antigen Screen (06/14/2025 6:31 PM EDT) Pathologist [facility] HIV 1 & 2 Antibody/Antigen Screen Non Reactive Non Reactive 06/14/2025 7:45 PM EDT [facility] Comment:Screening for HIV 1 & 2 antibodies, and P24 antigen is NONREACTIVE. No confirmatory testing is required. Blood Venous blood specimen / Unknown Venipuncture / Unknown 06/14/2025 6:31 PM EDT 06/14/2025 7:05 PM EDT us Luis Angel Bee MD LAB BLOOD ORDERABLES Nadia l Result Performing Organization Address City/[facility]/ZIP Co de Phone Number [facility] [address] [place] [address] * Hepatitis C Antibody (06/14/2025 6:31 PM EDT) Hepatitis C Antibody Negative Negative 06/14/2025 7:45 PM EDT [facility] Blood Venous blood specimen / Unknown Venipuncture / Unknown 06/14/2025 6:31 PM EDT 06/14/2025 7:05 PM EDT Result Neto Bee MD LAB BLOOD ORDERABLES Nadia l Result Performing Organization Address [facility] Co de Phone Number [facility] [address] [place] [address] * Hepatitis B Core Total Antibody IgG,IgM (06/14/2025 6:31 PM EDT) [facility] Hepatitis B Core Total Antibody IgG,IgM Negative Negative 06/14/2025 8:18 PM EDT [facility] Blood Venous blood specimen / Unknown Venipuncture / Unknown 06/14/2025 6:31 PM EDT 06/14/2025 7:05 PM EDT Result Neto Bee MD LAB BLOOD ORDERABLES Nadia l Result Performing Organization Address City/[facility] Co de Phone Number [facility] [address] [place] [address] * (ABNORMAL) Vitamin D 25 Hydroxy (06/14/2025 6:31 PM EDT) Only the most recent of2 resultswithin the time period is included. Pathologist [facility] Vitamin D 25 Hydroxy 10.8(L) 20.0 - 80.0 ng/mL 06/14/2025 8:19 PM EDT [facility] Blood Venous blood specimen / Unknown Venipuncture / Unknown 06/14/2025 6:31 PM EDT 06/14/2025 7:05 PM EDT Narrative [facility] - 06/14/2025 8:19 PM EDT Testing performed on [employer], standardized against NIST SRM [id number]. When testing [...] ORDERABLES Nadia l Result Performing Organization Address City/[facility] Co de Phone Number [facility] [address] [place] [address] * Hepatitis B Surface Antigen (06/14/2025 6:31 PM EDT) Hepatitis B Surf Antigen Negative Negative 06/14/2025 8:18 PM EDT [facility] Blood Venous blood specimen / Unknown Venipuncture / Unknown 06/14/2025 6:31 PM EDT 06/14/2025 7:05 PM EDT us Luis Angel Bee MD LAB BLOOD ORDERABLES Nadia l Result [facility] [address] [place] [address] * Cytomegalovirus Antibody IgG (06/14/2025 6:31 PM EDT) CMV ANTIBODY IGG <0.20 <=0.59 U/mL 06/16/2025 9:07 PM EDT [facility] Blood Venous blood specimen / Unknown Venipuncture / Unknown 06/14/2025 6:31 PM EDT 06/14/2025 7:05 PM EDT Narrative [facility] BILL) - 06/16/2025 9:07 PM EDT INTERPRETIVE [...] laboratory at the same time. Performed By: [facility] [address] [place] [address] Quill Picking Machine Operator: Balwinder Wadsworth MD, PhD CLIA Number: [id number] Luis Angel Bee MD LAB BLOOD ORDERABLES Nadia l Result Performing Organization Address City/[facility]/ZIP Co de Phone Number [facility] ([place]) [address] [place] [address] * (ABNORMAL) APTT (06/14/2025 6:31 PM EDT) aPTT 47(H) 25 - 35 sec LAB COAGULATION METHOD 06/14/2025 7:23 PM EDT [facility] Blood Venous blood specimen / Unknown Venipuncture / Unknown 06/14/2025 6:31 PM EDT 06/14/2025 7:05 PM EDT us Luis Angel Bee MD LAB BLOOD ORDERABLES Nadia l Result [facility] [address] [place] [address] * (ABNORMAL) Protime-INR (06/14/2025 6:31 PM EDT) Only the most recent of5 resultswithin the time period is included. Pathologist [facility] Prothrombin Time 25.9(H) 12.0 - 14.3 sec LAB COAGULATION METHOD 06/14/2025 7:23 PM EDT [facility] INR 2.3(H) 0.9 - 1.1 LAB COAGULATION METHOD 06/14/2025 7:23 PM EDT [facility] Blood Venous blood specimen / Unknown Venipuncture / Unknown 06/14/2025 6:31 PM EDT 06/14/2025 7:05 PM EDT Narrative [facility] - 06/14/2025 7:23 PM EDT OPTIMAL INR RANGES FOR PATIENT ON ORAL ANTICOAGULANT THERAPY Prevention of venous thromboembolism INR 2.0 to 3.0 In patients with heart disease: Atrial fibrillation INR 2.0 to 3.0 Valvular heart disease INR 2.0 to 3.0 Tissue heart valves INR 2.0 to 3.0 Mechanical prosthetic valves INR 2.5 to 3.5 Prevention of recurrent WA INR 2.5 to 3.5 us Luis Angel Bee MD LAB BLOOD ORDERABLES Nadia crockett Result [facility] [address] [place] [address] * (ABNORMAL) CBC and Differential (06/14/2025 6:31 PM EDT) Pathologist [facility] WBC Count 7.95 3.70 - 10.30 10*3/uL LAB HEMATOLOGY METHOD 06/14/2025 7:24 PM EDT [facility] RBC Count 2.90(L) 4.60 - 6.10 10*6/uL LAB HEMATOLOGY METHOD 06/14/2025 7:24 PM EDT [facility] HGB 10.1(L) 13.7 - 17.5 g/dL LAB HEMATOLOGY METHOD 06/14/2025 7:24 PM EDT [facility] HCT 29.7(L) 40.0 - 51.0 % LAB HEMATOLOGY METHOD 06/14/2025 7:24 PM EDT [facility] Platelet Count 56(L) 155 - 369 10*3/uL LAB HEMATOLOGY METHOD 06/14/2025 7:24 PM EDT [facility] MCV 102(H) 79 - 98 fL LAB HEMATOLOGY METHOD 06/14/2025 7:24 PM EDT [facility] MCH 34.8(H) 26.0 - 32.0 pg LAB HEMATOLOGY METHOD 06/14/2025 7:24 PM EDT [facility] MCHC 34.0 30.7 - 35.5 g/dL LAB HEMATOLOGY METHOD 06/14/2025 7:24 PM EDT [facility] RDW 16.9(H) 11.5 - 14.5 % LAB HEMATOLOGY METHOD 06/14/2025 7:24 PM EDT [facility] MPV 11.5 8.8 - 12.5 fL LAB HEMATOLOGY METHOD 06/14/2025 7:24 PM EDT [facility] nRBC 0.0 <=0.0 per 100 WBCs LAB HEMATOLOGY METHOD 06/14/2025 7:24 PM EDT [facility] Differential Type Automated LAB HEMATOLOGY METHOD 06/14/2025 7:24 PM EDT [facility] Neutrophils % 56 % LAB HEMATOLOGY METHOD 06/14/2025 7:24 PM EDT [facility] Lymphocytes % 25 % LAB HEMATOLOGY METHOD 06/14/2025 7:24 PM EDT [facility] Monocytes % 13 % LAB HEMATOLOGY METHOD 06/14/2025 7:24 PM EDT [facility] Eosinophils % 4 % LAB HEMATOLOGY METHOD 06/14/2025 7:24 PM EDT [facility] Basophils % 1 % LAB HEMATOLOGY METHOD 06/14/2025 7:24 PM EDT [facility] Immature Granulocytes % 1 % LAB HEMATOLOGY METHOD 06/14/2025 7:24 PM EDT [facility] Neutrophils Absolute 4.56 1.60 - 6.10 10*3/uL LAB HEMATOLOGY METHOD 06/14/2025 7:24 PM EDT [facility] Lymphocytes Absolute 1.97 1.20 - 3.90 10*3/uL LAB HEMATOLOGY METHOD 06/14/2025 7:24 PM EDT [facility] Monocytes Absolute 1.03(H) 0.30 - 0.90 10*3/uL LAB HEMATOLOGY METHOD 06/14/2025 7:24 PM EDT [facility] Eosinophils Absolute 0.31 0.00 - 0.50 10*3/uL LAB HEMATOLOGY METHOD 06/14/2025 7:24 PM EDT [facility] Basophils Absolute 0.04 0.00 - 0.10 10*3/uL LAB HEMATOLOGY METHOD 06/14/2025 7:24 PM EDT [facility] Immature Granulocytes Absolute 0.04 0.00 - 0.06 10*3/uL LAB HEMATOLOGY METHOD 06/14/2025 7:24 PM EDT [facility] Blood Venous blood specimen / Unknown Venipuncture / Unknown 06/14/2025 6:31 PM EDT 06/14/2025 7:06 PM EDT Narrative [facility] - 06/14/2025 7:24 PM EDT Therapeutic decision making should be based on absolute values, rather than percentages. us Luis Angel Bee MD LAB BLOOD ORDERABLES Nadia l Result [facility] [address] [place] [address] * Type and screen (06/14/2025 6:31 PM [...] ORDER MARYA Final Result Performing Organization Address City/[facility]/ZIP Co de Phone Number BLOOD BANK [address] [place] [address], * (ABNORMAL) Comprehensive metabolic panel (06/14/2025 6:31 PM EDT) Only the most recent of5 resultswithin the time period is included. Glucose, Plasma 86 74 - 99 mg/dL 06/14/2025 7:35 PM EDT [facility] BUN, Plasma 21 8 - 23 mg/dL 06/14/2025 7:35 PM EDT [facility] Creatinine, Plasma 1.28(H) 0.70 - 1.20 mg/dL 06/14/2025 7:35 PM EDT [facility] BUN/Creatinine Ratio 16 06/14/2025 7:35 PM EDT [facility] Sodium, Plasma 135(L) 136 - 145 mmol/L 06/14/2025 7:35 PM EDT [facility] Potassium, Plasma 3.9 3.6 - 4.9 mmol/L 06/14/2025 7:35 PM EDT [facility] Chloride, Plasma 104 97 - 107 mmol/L 06/14/2025 7:35 PM EDT [facility] CO2, Plasma 24 22 - 29 mmol/L 06/14/2025 7:35 PM EDT [facility] Anion Gap 7 6 - 16 mmol/L 06/14/2025 7:35 PM EDT [facility] Total Calcium, Plasma 7.6(L) 8.9 - 10.2 mg/dL 06/14/2025 7:35 PM EDT [facility] Total Protein 5.6(L) 6.3 - 7.9 g/dL 06/14/2025 7:35 PM EDT [facility] Albumin, Plasma 1.8(L) 3.5 - 5.2 g/dL 06/14/2025 7:35 PM EDT [facility] AST, Plasma 38 10 - 50 U/L 06/14/2025 7:35 PM EDT [facility] ALT, Plasma 31 10 - 50 U/L 06/14/2025 7:35 PM EDT [facility] Alkaline Phosphatase, Plasma 178(H) 40 - 115 U/L 06/14/2025 7:35 PM EDT [facility] Total Bilirubin, Plasma 6.6(H) 0.2 - 1.1 mg/dL 06/14/2025 7:35 PM EDT [facility] eGFRcr 62.5 mL/min/1.7 3m*2 06/14/2025 7:35 PM EDT [facility] Comment:Reported eGFRcr in m L/min/1.73m2 is based the CKD-EPI 2020 equation that does not use a race coefficient. Blood Venous blood specimen / Unknown Venipuncture / Unknown 06/14/2025 6:31 PM EDT 06/14/2025 7:05 PM EDT us Luis Angel Bee MD LAB BLOOD ORDERABLES Nadia crockett Result [facility] [address] [place] [address] * CT Angio Cardiac Coronary Arteries (06/13/2025 [...] Zarina INTERIANO IMG CT PROCEDURES Final Result * ECHO, [...] are based on Ultrasound LI-RADS version 2017. [email or web address] CRITICAL RESULT: No. COMMUNICATION: Per [...] recommendations are based on UltrasoundLI-RADS version 2017. [email or web address] CRITICAL RESULT: No. COMMUNICATION: Per [...] - 20.1 ug/L 06/13/2025 9:09 AM EDT [facility] Comment:Test performed at [facility] Special [facility] Laboratory. Blood Venous blood specimen / Unknown Venipuncture / Unknown 06/13/2025 6:50 AM EDT 06/13/2025 7:24 AM EDT us Moustapha Katz MD LAB REF LAB BLOOD AND FLUID OR D Final Result [facility] [address] [place] [address] * Pain Management, Quantitative Urine Drug Testing (06/13/2025 6:50 AM EDT) [facility] [place] Alprazolam <20 <20 ng/mL 06/16 10:13 AM EDT [facility] [place] Midazolam <20 <20 ng/mL 2024 10:13 AM EDT [facility] [place] Triazolam <20 <20 ng/mL 2024 10:13 AM EDT [facility] Alprazolam <10 <10 ng/mL 06/16/2025 10:13 AM EDT [facility] Aminoclonazepam <20 <20 ng/mL 10:13 AM EDT [facility] Amphetamine <50 <50 ng/mL 06/16/2025 10:13 AM EDT [facility] Benzoylecgonine <50 <50 ng/mL 10:13 AM EDT [facility] Buprenorphine <10 <10 ng/mL 06/16/2025 10:13 AM EDT [facility] Buprenorphine Glucuronide <50 <50 ng/mL 06/16/2025 10:13 AM EDT [facility] Butalbital <50 <50 ng/mL 06/16/2025 10:13 AM EDT [facility] 9 Carboxy THC <10 <10 ng/mL 06/16/2025 10:13 AM EDT [facility] 9 Carboxy THC Glucuronide <25 <25 ng/mL 06/16/2025 10:13 AM EDT [facility] Clonazepam <10 <10 ng/mL 06/16/2025 10:13 AM EDT [facility] Codeine <50 <50 ng/mL 06/16/2025 10:13 AM EDT [facility] Codeine Glucuronide <50 <50 ng/mL 06/16 10:13 AM EDT [facility] Cyclobenzaprine <50 <50 ng/mL 10:13 AM EDT [facility] Desmethyl Tramadol <50 <50 ng/mL 2024 10:13 AM EDT [facility] Diazepam <10 <10 ng/mL 06/16/2025 10:13 AM EDT [facility] EDDP - Methadone Metabolite <50 <50 ng/mL 06/16/2025 10:13 AM EDT [facility] Fentanyl <1 <1 ng/mL 06/16/2025 10:13 AM EDT [facility] Hydrocodone <50 <50 ng/mL 06/16/2025 10:13 AM EDT [facility] Hydromorphone <50 <50 ng/mL 06/16/2025 10:13 AM EDT [facility] Hydromorphone Glucuronide <50 <50 ng/mL 06/16/2025 10:13 AM EDT [facility] Lorazepam <20 <20 ng/mL 06/16/2025 10:13 AM EDT [facility] Lorazepam Glucuronide <50 <50 ng/mL 06/16/2025 10:13 AM EDT [facility] MDA <50 <50 ng/mL 06/16/2025 10:13 AM EDT [facility] MDMA <50 <50 ng/mL 06/16/2025 10:13 AM EDT [facility] Meperidine <50 <50 ng/mL 06/16/2025 10:13 AM EDT [facility] Methadone <50 <50 ng/mL 06/16/2025 10:13 AM EDT [facility] [facility] Methamphetamine <50 <50 ng/mL 10:13 AM EDT [facility] Methylphenidate <50 <50 ng/mL 10:13 AM EDT [facility] 6 Monoacetyl morphine <10 <10 ng/mL 06/16/2025 10:13 AM EDT [facility] Morphine <50 <50 ng/mL 06/16/2025 10:13 AM EDT [facility] Morphine Glucuronide <50 <50 ng/mL 12/2024 10:13 AM EDT [facility] Naloxone <50 <50 ng/mL 06/16/2025 10:13 AM EDT [facility] Naloxone Glucuronide <50 <50 ng/mL 12/2024 10:13 AM EDT [facility] Norbuprenorphine <10 <10 ng/mL 06/16/20 10:13 AM EDT [facility] Norbuprenorphine Glucuronide <50 <50 ng/mL 06/16/2025 10:13 AM EDT [facility] Nordiazepam <20 <20 ng/mL 06/16/2025 10:13 AM EDT [facility] Norfentanyl <2 <2 ng/mL 06/16/2025 10:13 AM EDT [facility] Normeperidine <50 <50 ng/mL 06/16/2025 10:13 AM EDT [facility] PCP Quant, Ur <50 <50 ng/mL 06/16/2025 10:13 AM EDT [facility] Phenobarbital <50 <50 ng/mL 06/16/2025 10:13 AM EDT [facility] Oxazepam <20 <20 ng/mL 06/16/2025 10:13 AM EDT [facility] Oxazepam Glucuronide <50 <50 ng/mL 12/2024 10:13 AM EDT [facility] Oxycodone <50 <50 ng/mL 06/16/2025 10:13 AM EDT [facility] Oxymorphone <50 <50 ng/mL 06/16/2025 10:13 AM EDT [facility] Oxymorphone Glucuronide <50 <50 ng/mL 06/16/2025 10:13 AM EDT [facility] Secobarbital <50 <50 ng/mL 06/16/2025 10:13 AM EDT [facility] Tramadol <50 <50 ng/mL 06/16/2025 10:13 AM EDT [facility] Temazepam <20 <20 ng/mL 06/16/2025 10:13 AM EDT [facility] Temazepam Glucuronide <50 <50 ng/mL 06/16/2025 10:13 AM EDT [facility] Urine Urine specimen obtained by clean catch procedure / Unknown Non-blood Collection / Unknown 06/13/2025 6:50 AM EDT 06/13/2025 7:26 AM EDT Narrative [facility] - 06/16/2025 10:13 AM [...] laboratory. Test performed by LC-MS/MS at the [facility]. This test was developed and its performance characteristics determined by [facility]. It has not been cleared or approved by the FDA. The laboratory is regulated under CLIA as qualified to perform high-complexity testing. This test is used for clinical purposes. Zarina INTERIANO LAB URINE ORDERABLES Final Resu lt [facility] [address] [place] [address] * C-Telopeptide (06/13/2025 6:50 AM EDT) C Telopeptide Beta Cross Linked Serum Result 397 132 - 752 pg/mL 06/14/2025 9:07 PM EDT [facility] ([facility]) Blood Venous blood specimen / Unknown Venipuncture / Unknown 06/13/2025 6:50 AM EDT 06/13/2025 7:25 AM EDT Narrative [facility] BILL) - 06/14/2025 9:07 PM EDT REFERENCE INTERVAL: C-Telopeptide, [id number], Serum Access complete set of age- and/or gender-specific reference intervals for this test in the [facility] Test Directory (BMEYE). Performed By: [facility] [address] [place] [id number] Quill Picking Machine Operator: Balwinder Wadsworth MD, PhD CLIA Number: [id number] us Moustapha Katz MD LAB BLOOD ORDERABLES Final Res ult [facility] ([facility]) [address] [place] [address] * Nicotine Cotinine Metabolite (06/13/2025 6:50 AM EDT) NICOTINE <5 <5 ng/mL 06/14/2025 11:39 AM EDT [facility] Cotinine <5 <5 ng/mL 06/14/2025 11:39 AM EDT [facility] Blood Venous blood specimen / Unknown Venipuncture / Unknown 06/13/2025 6:50 AM EDT 06/13/2025 7:25 AM EDT Narrative [facility] - 06/14/2025 11:39 AM EDT Testing performed by LC-MS/MS at the [facility]Toxicology [facility]. This test was developed and its performance characteristics determined by [facility]. This assay has not been cleared by the FDA. The laboratory is regulated under CLIA as qualified to perform high-complexity testing. This test is used for clinical purposes. Zarina INTERIANO LAB BLOOD ORDERABLES Final Resu lt [facility] [address] [place] [address] * Osteocalcin by ECIA (06/13/2025 6:50 AM EDT) OSTEOCALCIN BY ECIA 8 8 - 36 ng/mL 06/15/2025 12:10 AM EDT [facility] ([facility]) Blood Venous blood specimen / Unknown Venipuncture / Unknown 06/13/2025 6:50 AM EDT 06/13/2025 7:58 AM EDT Narrative [facility] ([facility]) - 06/15/2025 12:10 AM EDT INTERPRETIVE INFORMATION: Osteocalcin by ECIA In patients with renal failure, the osteocalcin result may be directly elevated, due to impaired clearance, and/or indirectly elevated due to renal osteodystrophy. Access complete set of age- and/or gender-specific reference intervals for this test in the [facility] Test Directory (BMEYE). Performed By: [facility] [address] [place] [address] Quill Picking Machine Operator: Balwinder Wadsworth MD, PhD CLIA Number: [id number] Moustapha Katz MD LAB BLOOD ORDERABLES Final Res ult Performing Organization Address City/[facility]/ZIP Co de Phone Number [facility] ([facility]) [address] [place] [address] * Alcohol Urine (06/13/2025 6:50 AM EDT) Alcohol Urine Negative Negative 06/13/2025 12:50 PM EDT [facility] Urine Urine specimen obtained by clean catch procedure / Unknown Non-blood Collection / Unknown 06/13/2025 6:50 AM EDT 06/13/2025 7:27 AM EDT Narrative [facility] - 06/13/2025 12:50 PM EDT The correlation between urine and serum ethanol concentration is highly variable. Test performed by Gas Chromatography at the [facility]. This test was developed and its performance characteristics determined by [facility]. It has not been cleared or approved by the FDA.The laboratory is regulated under CLIA as qualified to perform high-complexity testing. This test is used for clinical purposes only. The correlation between urine and serum ethanol concentration is highly variable. Test performed by Gas Chromatography at the [facility]. This test was developed and its performance characteristics determined by [facility]. It has not been cleared or approved by the FDA.The laboratory is regulated under CLIA as qualified to perform high-complexity testing. This test is used for clinical purposes only. Zarina INTERIANO LAB URINE ORDERABLES Final Resu lt Performing Organization Address City/[facility]/ZIP Co de Phone Number [facility] [address] [place] [address] * Vitamin D 1,25 Dihydroxy (06/13/2025 6:50 AM EDT) VITAMIN D, 1, 25-DIHYDROXY 43.7 19.9 - 79.3 pg/mL 06/13/2025 12:37 PM EDT [facility] Blood Venous blood specimen / Unknown Venipuncture / Unknown 06/13/2025 6:50 AM EDT 06/13/2025 7:25 AM EDT us Moustapha Katz MD LAB BLOOD ORDERABLES Final Res ult [facility] [address] [place] [address] * (ABNORMAL) Comprehensive Urine Drug Screening, Qualitative Assay, >= 27 Drug Classes (56:50 AM EDT) Acetaminophen Negative Negative 06/14/2025 9:02 AM EDT [facility] Alprazolam Negative Negative 06/14/2025 9:02 AM EDT [facility] Amantadine Negative Negative 06/14/2025 9:02 AM EDT [facility] Amitriptyline Negative Negative 06/14/2025 9:02 AM EDT [facility] Amphetamine Negative Negative 06/14/2025 9:02 AM EDT [facility] Atenolol Negative Negative 06/14/2025 9:02 AM EDT [facility] Benzoylecgonine Negative Negative 9:02 AM EDT [facility] Bisoprolol Negative Negative 06/14/2025 9:02 AM EDT [facility] Bupropion Negative Negative 06/14/2025 9:02 AM EDT [facility] Butalbital Negative Negative 06/14/2025 9:02 AM EDT [facility] Carbamazepine Negative Negative 06/14/2025 9:02 AM EDT [facility] Carisoprodol Negative Negative 06/14/2025 9:02 AM EDT [facility] Chlorpheniramine Negative Negative 06/14/20 9:02 AM EDT [facility] Citalopram Negative Negative 06/14/2025 9:02 AM EDT [facility] Clindamycin Negative Negative 06/14/2025 9:02 AM EDT [facility] Clonidine Negative Negative 06/14/2025 9:02 AM EDT [facility] Clopidogrel / Ticlopidine Negative Negative 06/14/2025 9:02 AM EDT [facility] Cocaethylene Negative Negative 06/14/2025 9:02 AM EDT [facility] Cocaine Negative Negative 06/14/2025 9:02 AM EDT [facility] Codeine Negative Negative 06/14/2025 9:02 AM EDT [facility] Cyclobenzaprine Negative Negative 9:02 AM EDT [facility] Desvenlafaxine Negative Negative 06/14/2025 9:02 AM EDT [facility] Dextromethorphan Negative Negative 06/14/20 9:02 AM EDT [facility] Diazepam Negative Negative 06/14/2025 9:02 AM EDT [facility] Diltiazem Negative Negative 06/14/2025 9:02 AM EDT [facility] Diphenhydramine Negative Negative 9:02 AM EDT [facility] Doxepine Negative Negative 06/14/2025 9:02 AM EDT [facility] Doxylamine Negative Negative 06/14/2025 9:02 AM EDT [facility] EDDP-Methadone metabolite Negative Negative 06/14/2025 9:02 AM EDT [facility] Fentanyl Negative Negative 06/14/2025 9:02 AM EDT [facility] Fluconazole Negative Negative 06/14/2025 9:02 AM EDT [facility] Fluoxetine Negative Negative 06/14/2025 9:02 AM EDT [facility] Guaifenesin Negative Negative 06/14/2025 9:02 AM EDT [facility] Haloperidol Negative Negative 06/14/2025 9:02 AM EDT [facility] Heroin/6-MARY Negative Negative 06/14/2025 9:02 AM EDT [facility] Hydrocodone Negative Negative 06/14/2025 9:02 AM EDT [facility] Hydroxyzine / Cetirizine metabolite Negative Negative 06/14/2025 9:02 AM EDT [facility] Ibuprofen Negative Negative 06/14/2025 9:02 AM EDT [facility] Imipramine Negative Negative 06/14/2025 9:02 AM EDT [facility] Ketamine Negative Negative 06/14/2025 9:02 AM EDT [facility] Labetolol Negative Negative 06/14/2025 9:02 AM EDT [facility] Lamotrigine Negative Negative 06/14/2025 9:02 AM EDT [facility] Levetiracetam Negative Negative 06/14/2025 9:02 AM EDT [facility] Lidocaine Negative Negative 06/14/2025 9:02 AM EDT [facility] MDA Negative Negative 06/14/2025 9:02 AM EDT [facility] MDMA Negative Negative 06/14/2025 9:02 AM EDT [facility] Memantine Negative Negative 06/14/2025 9:02 AM EDT [facility] Meperidine Negative Negative 06/14/2025 9:02 AM EDT [facility] Meprobamate Negative Negative 06/14/2025 9:02 AM EDT [facility] Metaxalone Negative Negative 06/14/2025 9:02 AM EDT [facility] Methamphetamine Negative Negative 9:02 AM EDT [facility] Methocarbamol Negative Negative 06/14/2025 9:02 AM EDT [facility] Methylecgonine Negative Negative 06/14/2025 9:02 AM EDT [facility] Metoclopramide Negative Negative 06/14/2025 9:02 AM EDT [facility] Metoprolol Negative Negative 06/14/2025 9:02 AM EDT [facility] Metronidazole Negative Negative 06/14/2025 9:02 AM EDT [facility] Midazolam Negative Negative 06/14/2025 9:02 AM EDT [facility] Midazolam Metabolite Negative Negative 06/14/2025 9:02 AM EDT [facility] Mirtazapine Negative Negative 06/14/2025 9:02 AM EDT [facility] Misc Test Result Negative Negative 06/14/20 9:02 AM EDT [facility] Naproxen Negative Negative 06/14/2025 9:02 AM EDT [facility] Nefazodone Negative Negative 06/14/2025 9:02 AM EDT [facility] Norfentanyl Negative Negative 06/14/2025 9:02 AM EDT [facility] Nortriptyline Negative Negative 06/14/2025 9:02 AM EDT [facility] Ordanstron Negative Negative 06/14/2025 9:02 AM EDT [facility] Oxcarbazepine Negative Negative 06/14/2025 9:02 AM EDT [facility] Oxycodone Negative Negative 06/14/2025 9:02 AM EDT [facility] Paroxethine Negative Negative 06/14/2025 9:02 AM EDT [facility] Phenobarbital Negative Negative 06/14/2025 9:02 AM EDT [facility] Phentermine Negative Negative 06/14/2025 9:02 AM EDT [facility] Phenytoin Negative Negative 06/14/2025 9:02 AM EDT [facility] Primidone Negative Negative 06/14/2025 9:02 AM EDT [facility] Promethazine Negative Negative 06/14/2025 9:02 AM EDT [facility] Propofol Negative Negative 06/14/2025 9:02 AM EDT [facility] Propranolol Negative Negative 06/14/2025 9:02 AM EDT [facility] Quetiapine Negative Negative 06/14/2025 9:02 AM EDT [facility] Quinine Negative Negative 06/14/2025 9:02 AM EDT [facility] Rantidine Negative Negative 06/14/2025 9:02 AM EDT [facility] Sertraline Negative Negative 06/14/2025 9:02 AM EDT [facility] Spironolactone Positive(A) Negative 9:02 AM EDT [facility] Tizanidine Negative Negative 06/14/2025 9:02 AM EDT [facility] Topiramate Negative Negative 06/14/2025 9:02 AM EDT [facility] Tramadol Negative Negative 06/14/2025 9:02 AM EDT [facility] Trazadone/ Trazadone metabolite Negative Negative 06/14/2025 9:02 AM EDT [facility] Trimethoprim Negative Negative 06/14/2025 9:02 AM EDT [facility] Valproic Acid Negative Negative 06/14/2025 9:02 AM EDT [facility] Venlafaxine Negative Negative 06/14/2025 9:02 AM EDT [facility] Verapamil Negative Negative 06/14/2025 9:02 AM EDT [facility] Zolpidem Negative Negative 06/14/2025 9:02 AM EDT [facility] Xylazine Negative Negative 06/14/2025 9:02 AM EDT [facility] Urine Urine specimen obtained by clean catch procedure / Unknown Non-blood Collection / Unknown 06/13/2025 6:50 AM EDT 06/13/2025 7:26 AM EDT us Zarina INTERIANO LAB URINE ORDERABLES Final Resu lt [facility] [address] [place] [address] * (ABNORMAL) CBC w/o differential (06/13/2025 6:50 AM EDT) Only the most recent of4 resultswithin the time period is included. WBC Count 8.26 3.70 - 10.30 10*3/uL LAB HEMATOLOGY METHOD 06/13/2025 8:36 AM EDT [facility] RBC Count 3.50(L) 4.60 - 6.10 10*6/uL LAB HEMATOLOGY METHOD 06/13/2025 8:36 AM EDT [facility] HGB 12.1(L) 13.7 - 17.5 g/dL LAB HEMATOLOGY METHOD 06/13/2025 8:36 AM EDT [facility] HCT 36.3(L) 40.0 - 51.0 % LAB HEMATOLOGY METHOD 06/13/2025 8:36 AM EDT [facility] Platelet Count 65(L) 155 - 369 10*3/uL LAB HEMATOLOGY METHOD 06/13/2025 8:36 AM EDT [facility] MCV 104(H) 79 - 98 fL LAB HEMATOLOGY METHOD 06/13/2025 8:36 AM EDT [facility] MCH 34.6(H) 26.0 - 32.0 pg LAB HEMATOLOGY METHOD 06/13/2025 8:36 AM EDT [facility] MCHC 33.3 30.7 - 35.5 g/dL LAB HEMATOLOGY METHOD 06/13/2025 8:36 AM EDT [facility] RDW 17.6(H) 11.5 - 14.5 % LAB HEMATOLOGY METHOD 06/13/2025 8:36 AM EDT [facility] MPV 11.7 8.8 - 12.5 fL LAB HEMATOLOGY METHOD 06/13/2025 8:36 AM EDT [facility] nRBC 0.0 <=0.0 per 100 WBCs LAB HEMATOLOGY METHOD 06/13/2025 8:36 AM EDT [facility] Blood Venous blood specimen / Unknown Venipuncture / Unknown 06/13/2025 6:50 AM EDT 06/13/2025 7:26 AM EDT us Zarina INTERIANO LAB BLOOD ORDERABLES Final Resu lt Performing Organization Address City/[facility]/ZIP Co de Phone Number [facility] [address] [place] [address] * Phosphorus, Plasma (06/13/2025 6:50 AM EDT) Phosphorus, Plasma 3.5 2.5 - 4.5 mg/dL 06/13/2025 7:56 AM EDT [facility] Blood Venous blood specimen / Unknown Venipuncture / Unknown 06/13/2025 6:50 AM EDT 06/13/2025 7:25 AM EDT us Moustapha Katz MD LAB BLOOD ORDERABLES Final Res ult [facility] [address] [place] [address] * Dexa Bone Density (06/08/2025 8:35 AM EDT) Anatomical Region Laterality Modality L-spine Radiographic Liseth ging Narrative 06/17/2025 10:07 PM EDT [facility] [address] [place] [address] DXA Bone Densitometry Report: [06/08/2025] BMD test performed using the [employer] DXA System (analysis version: 14.10) manufactured by [employer]. REFERRING PROVIDER: Dr. Moustapha Katz MD CLINICAL [...] of change in BMD). Moustapha Katz MD [facility] DXA PROCEDURES Final Resul t * Hemoglobin, Blood (03/26/2025) External Hemoglobin (Hgb) 11.70 Blood Venous blood specimen / Unknown 03/26/2025 us Historical Provider MD LAB BLOOD ORDERABLES Nadia l Result * Hematocrit, Blood (03/26/2025) External Hematocrit (Hct) 34.1 Blood Venous blood specimen / Unknown 03/26/2025 [facility] Provider MD LAB BLOOD ORDERABLES Nadia l Result * Ferritin, Serum (03/26/2025) External Ferritin 77.9 Blood Venous blood specimen / Unknown 03/26/2025 Result [facility] Provider MD LAB BLOOD ORDERABLES Edit ed Result - Final from Last 3 [place] [id number] [address] [place] [address] NANCY Care Teams Reprographics Technician Relationship Specialty Start Date End Date Chris Medel MD [address] [place] [address] PCP - General 03/14/25 Ruma Hernández APRN [facility] [place] [phone] Referring Physician Gastroenterology 07/30/23
--- OUTSIDE RECORDS SUMMARY | 2025-06-20 07:41 | XMS_ITS | Encounter Summary ---
Author Organization Healthcare Address [address] [place] [address] Care Team Providers Care Brush Stainer Name Role Phone Ruma Hernández ROTARY SOIL STABILIZER Unavailable [phone] Chris Medel MD Primary Care Provider [phone] Encounter Details Date Type Department Care Team (Late st Contact Info) Description 06/07/2025 Telephone [facility] [address] [facility] [address] [facility], [address] [place] [address] Mary Chatman, [facility] [...] How often do you attend chur or orthodoxy services? More than 4 times [...] Recorded Patient Health Questionnaire-2 Score 0 06/08/2025 [facility] - Occupational [...] time in the past 12 m [facility], were you homeless or living in [...] Faxed record request for lab results to [facility] Medical Records F documented in this encounter Plan of Treatment Upcoming Encounters Date Type Department Care Team (Late st Contact Info) Description 07/11/2025 9:00 AM EDT Clinical Support [facility] [address] [facility] [address] [place] [id number] 07/11/2025 9:30 AM EDT Social Work [facility] [address] [facility] [address] [place] [address] Liliane Jacobs [place], [place] [id number] 07/11/2025 10:30 AM EDT Office Visit [facility] [address] [facility] [address] [place] [address] Portia Maguire MD [address] [facility] [address] [place] [address] 10/03/2025 12:45 PM EST Office Visit Medical Office Building Urology [address] [facility] [address] [facility], [address] [place] [address] Suhail Brock MD [address] [place] [address] 10/18/2025 4:20 PM EST Office Visit [facility] [address] [facility], [address] [place] [address] Moustapha aKtz MD [address] [facility] [address] [place] [address] documented as of this encounter [...] documented as of this encounter Care Teams Brush Stainer Relationship Specialty Start Date End Date Chris Medel MD [address] [place] [address] PCP - General 03/14/25 Ruma Hernández APRN [address] [facility] [address] [place] [address] Referring Physician Gastroenterology 07/30/23 documented as of this encounter
--- OUTSIDE RECORDS SUMMARY | 2025-06-20 07:41 | XMS_ITS ---
Author Organization [facility] Address [address] 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 Care Team Name Role Phone Fax Email Meaghan Le RN Liver Coordinator [phone] N/A N/A Urban Brantley DO Primary Care Provider [phone] N/A Bird Kennedy MD Surgeon [phone] N/A Liliane Jacobs Manager [employer] [phone] N/A N/A Ruma Hernández APRN Referring Physician [phone] N/A Events Pre-Transplant Referred: 07/30/2023 Committee: 06/19/2024 Center waitlisted: 07/05/2024 Appointments (05/20/2025 - 07/21/2025) When With Visit Type Description 06/13/2025 Transplant [...] without bleeding, unspecified esophageal varices type (CMS/HCC) 07/11/2025 Transplant - Baylee Jacobs W oredmund - Office Visit 07/11/2025 Transplant LAB 07/11/2025 Transplant - Baylee Maguire Office Visit - Transplant
--- OUTSIDE RECORDS SUMMARY | 2025-06-20 07:41 | XMS_ITS | Encounter Summary ---
Author Organization Healthcare Address [address] [place] [address] Care Team Providers Care Welder Experimental Name Role Phone Ruma Hernández GOLD NIB GRINDER Unavailable [phone] Chris Medel MD Primary Care Provider [phone] Encounter Details Date Type Department Care Team (Late st Contact Info) Description 04/03/2025 Results Follow-Up [facility] [address] [place] [address] Meaghan Le, RN [facility] LIVER [id number] [address] [place] [address] Social History Tobacco Use Types [...] How often do you attend chur or holiness services? More than 4 times [...] Recorded Patient Health Questionnaire-2 Score 0 03/14/2025 [facility] - Occupational Stress Questionnaire [...] Description 07/11/2025 9:00 AM EDT Clinical Support [facility] [place] [address] [facility] [address] [place] [address] 07/11/2025 9:30 AM EDT Social Work [facility] [place] [address] [facility] [address] [place] [address] Liliane Jacobs [place], [place] [id number] 07/11/2025 10:30 AM EDT Office Visit [facility] [place] [address] [facility] [address] [place] [address] Portia Maguire MD [address] [facility] [address] [place] [address] 10/03/2025 12:45 PM EST Office Visit Medical Office Building Urology [address] [facility], [address] [place] [address] Suhail Brock MD [address] [facility] [address] [place] [address] 10/18/2025 4:20 PM EST Office Visit [facility] Bone [facility] Mineral Metabolism [address] [facility], [address] [place] [address] Moustapha Katz MD [address] [facility] [address] [place] [address] documented as of this encounter [...] documented as of this encounter Care Teams Welder Experimental Relationship Specialty Start Date End Date Chris Medel MD [address] [place] [address] PCP - General 03/14/25 Ruma Hernández APRN [address] [facility] 202 [place] [address] Referring Physician Gastroenterology 07/30/23 documented as of this encounter
--- OUTSIDE RECORDS SUMMARY | 2025-06-20 07:41 | XMS_ITS | Encounter Summary ---
Author Organization Healthcare Address [address] [place] [address] Care Team Providers Care Rotary Dryer Operator Name Role Phone Ruma Hernández PUBLIC RECORDS RESEARCHER Unavailable [phone] Chris Medel MD Primary Care Provider [phone]- [phone] Encounter Details Date Type Department Care Team [...] often do you attend chur ch or yazidism services? More than 4 times [...] Score 0 03/14/2025 [facility] - Occupational Stress Questionnaire Answer Date [...] the past 12 months has th e [employer], gas, oil, or water company threatened to [...] Description 07/11/2025 9:00 AM EDT Clinical Support [facility] [place] [address] [place] [address] 07/11/2025 9:30 AM EDT Social Work [facility] [place] [address] [place] [address] [place] [address] 07/11/2025 10:30 AM EDT [facility] [address] [place] [address] Portia Maguire MD [address] [facility] [address] [place] [address] 10/03/2025 12:45 PM EST Office Visit Medical Office Building Urology [address] [facility], [address] [place] [address] Suhail Brock MD [address] [facility] [address] [place] [address] 10/18/2025 4:20 PM EST Office Visit Professional [facility] [place] [facility] Mineral Metabolism [address] [facility], [address] [place] [address] Moustapha Katz MD [address] [facility] [address] [place] [address] documented as of this encounter [...] as of this encounter Care Teams Rotary Dryer Operator Relationship Specialty Start Date End Date Chris Medel MD [address] [place] [address] PCP - General 03/14/25 Ruma Hernández APRN 1780 [facility] [address] [place] [address] Referring Physician Gastroenterology 07/30/23 documented as of this encounter
--- OUTSIDE RECORDS SUMMARY | 2025-06-20 07:41 | XMS_ITS | Encounter Summary ---
Author Organization Healthcare Address [address] [place] [address] Care Team Providers Care Custodian Manager Name Role Phone Urban Brantley DO Primary Care Provider [phone] Ruma Hernández TIRE SPOTTER Unavailable [phone] Chris Medel MD Primary Care Provider [phone] Encounter Details Date Type Department Care Team (Late st Contact Info) Description 03/22/2023 Orders Only External Location [address] [place] [address] Provider, External Social History Tobacco Use Types [...] Clinical Support [facility] [place] [address] [address] 07/11/2025 9:30 AM EDT Social Work [facility]plant [place] [address] [address] [place] [address] 07/11/2025 10:30 AM EDT Office Visit [facility] [address] [place] [address] Portia Maguire MD [address] [place] [address] 10/03/2025 12:45 PM EST Office Visit Medical Office Building Urology [address] [facility], [address] [place] [address] Suhail Brock MD [address] [place] [address] 10/18/2025 4:20 PM EST Office Visit [facility] [place] [facility] Mineral Metabolism [address] [facility], [address] [place] [address] Moustapha Katz MD [address] [facility] [address] [place] [address] documented as of this encounter [...] documented as of this encounter Care Teams Custodian Manager Relationship Specialty Start Date End Date Urban Brantley DO [address] [place] [address] PCP - General 07/30/23 03/13/25 Chris Medel MD [address] [place] [address] PCP - General 03/14/25 Ruma Hernández APRN [address] [place], [place] [address] [address] Referring Physician Gastroenterology 07/30/23 documented as of this encounter
--- OUTSIDE RECORDS SUMMARY | 2025-06-20 07:41 | XMS_ITS | Encounter Summary ---
Author Organization Healthcare Address [address] [place] [address] Care Team Providers Care Endocrinologist Name Role Phone Ruma Hernández HEATING AND VENTILATION ENGINEER Unavailable [phone] Chris Medel MD Primary Care Provider [phone]- [phone] Encounter Details Date Type Department Care Team (Late st Contact Info) Description 06/06/2025 Telephone [facility] Radiology [address] [place] [address] Mell Masterson, RN [facility]-DIAGNOSTIC RADIOLOGY Social History [...] do you attend [facility] or yazdanism services? More than 4 times [...] often do you attend chur ch or yazdanism services? More than 4 times [...] and heating? Not hard at all 06/15/2025 [facility] [place] of Occupat ional Health - Occupational Stress [...] time in the past 12 m [facility], were you homeless or living in [...] drink first t luisa in the morning (EYE-NETWORK ARCHITECT MANAGER) to steady your nerves or to get rid of a hangover? 0 06/14/2025 CAGE Questionnaire Score 0 025 Utilities Answer Date Recorded In the past 12 months has th [employer], gas, oil, or water company threatened to [...] Never 06/15/2025 9:39 AM EDT Lisa Gutiérrez RN Q2: How many drinks containing alcohol do [...] Month) No 06/14/2025 9:23 PM EDT Chapito Jrarett 6. Suicidal Behavior (Lifetime) No 9:23 PM EDT Chapito Jarrett documented as of this encounter Plan of Treatment Upcoming Encounters Date Type Department Care Team (Late st Contact Info) Description 07/11/2025 9:00 AM EDT Clinical Support [facility] [place] [address] [place] [address] 07/11/2025 9:30 AM EDT Social Work [facility] [place] [address] [place] [address] [place] [address] 07/11/2025 10:30 AM EDT Office Visit [facility] [place] [address] [place] [address] Portia Maguire MD [address] [place] [address] 10/03/2025 12:45 PM EST Office Visit Medical Office Building Urology [facility] [address] [facility], [address] [place] [address] Suhail Brock MD [address] [place] [address] 10/18/2025 4:20 PM EST Office Visit [facility] Bone & Mineral Metabolism [address] , [address] [place] [address] Moustapha Katz MD [address] [place] [address] documented as of this encounter [...] documented as of this encounter Care Teams Endocrinologist Relationship Specialty Start Date End Date Chris Medel MD [address] [place] [address] PCP - General 03/14/25 Ruma Hernández APRN 1780 [facility] [address] [place] [address] Referring Physician Gastroenterology 07/30/23 documented as of this encounter
--- OUTSIDE RECORDS SUMMARY | 2025-06-20 07:41 | XMS_ITS | Encounter Summary ---
Author Organization Healthcare Address [address] [place] [address] Care Team Providers Care Medical Laboratory Technicians Name Role Phone Urban Brantley DO Primary Care Provider [phone] Ruma Hernández CAFETERIA CLERK Unavailable [phone] Chris Medel MD Primary Care Provider [phone] Encounter Details Date Type Department Care Team (Late st Contact Info) Description 05/09/2023 Orders Only External Location [address] [place] [address] Provider, External Social History Tobacco Use Types [...] Description 07/11/2025 9:00 AM EDT Clinical Support [facility] [place] [address] [address] 07/11/2025 9:30 AM EDT Social Work [facility] Transplant [place] [address] [address] [place] [address] 07/11/2025 10:30 AM EDT Office Visit [facility] [address] [place] [address] Portia Maguire MD [address] [place] [address] 10/03/2025 12:45 PM EST Office Visit Medical Office Building Urology [address] [facility], [address] [place] [address] Suhail Brock MD [address] [place] [address] 10/18/2025 4:20 PM EST Office Visit [facility] [place] [facility] Mineral Metabolism [address], [address] [place] [address] Moustapha Katz MD [address] [place] [address] documented as of this encounter [...] as of this encounter Care Teams Medical Laboratory Technicians Relationship Specialty Start Date End Date Urban Brnatley DO [address] [place] [address] PCP - General 07/30/23 03/13/25 Chris Medel MD [address] [place] [address] PCP - General 03/14/25 Ruma Hernández APRN [address] [place] [address] [address] [place] [address] Referring Physician Gastroenterology 07/30/23 documented as of this encounter
--- OUTSIDE RECORDS SUMMARY | 2025-06-20 07:41 | XMS_ITS | Encounter Summary ---
Author Organization Healthcare Address [address] [place] [address] Care Team Providers Care Hand Cloth Cutter Name Role Phone Ruma Hernández BALL POINT SPLITTER Unavailable [phone] Chris Medel MD Primary Care Provider [phone] Encounter Details Date Type Department Care Team [...] often do you attend chur ch or orthodoxy services? More than 4 times [...] Recorded Patient Health Questionnaire-2 Score 0 06/08/2025 [facility] - Occupational Stress Questionnaire Answer Date [...] Description 07/11/2025 9:00 AM EDT Clinical Support [facility] [place] [address] [facility] [address] [place] [address] 07/11/2025 9:30 AM EDT Social Work [facility] [place] [address] [place] [address] Liliane Jacobs [place] [id number] 07/11/2025 10:30 AM EDT Office Visit [facility] [place] [address] [facility] [address] [place] [address] Portia Maguire MD [address] [facility] [address] [place] [address] 10/03/2025 12:45 PM EST Office Visit Medical Office Building Urology [address] [facility], [address] [place] [address] Suhail Brock MD [address] [facility] [address] [place] [address] 10/18/2025 4:20 PM EST Office Visit Professional [employer] [place] Bone & Mineral Metabolism [address] [facility], [address] [place] [address] Moustapha Katz MD [address] [facility] 401 [place] [address] documented as of this encounter [...] documented as of this encounter Care Teams Hand Cloth Cutter Relationship Specialty Start Date End Date Chris Medel MD [address] [place] [address] PCP - General 03/14/25 Ruma Hernández APRN [address] [place] [address] Referring Physician Gastroenterology 07/30/23 documented as of this encounter
--- OUTSIDE RECORDS SUMMARY | 2025-06-20 07:41 | XMS_ITS | Encounter Summary ---
Author Organization Healthcare Address [address] [place] [address] Care Team Providers Care Skiver Blockers Name Role Phone Ruma Hernández PRINT COLOR MATCHER Unavailable [phone] Chris Medel MD Primary Care Provider [phone] Encounter Details Date Type Department Care Team (Late st Contact Info) Description 05/22/2025 Telephone [facility] [address] [place] [address] Meaghan Le, RN [facility] LIVER [id number] [address] [place] [address] Social History Tobacco Use Types [...] How often do you attend chur or pentecostalism services? More than 4 times per year [...] Recorded Patient Health Questionnaire-2 Score 0 03/14/2025 [facility] - Occupational Stress Questionnaire Answer Date [...] Description 07/11/2025 9:00 AM EDT Clinical Support [facility]plant [place] [address] [facility] [address] [place] [address] 07/11/2025 9:30 AM EDT Social Work [facility] [place] [address] [facility] [address] [place] [address] [place] [address] 07/11/2025 10:30 AM EDT Office Visit [facility] [place] [address] [facility] [address] [place] [address] Portia Maguire MD [address] [facility] [address] [place] [address] 10/03/2025 12:45 PM EST Office Visit Medical Office Building Urology [address] [facility], [address] [place] [address] Suhail Brock MD [address] [facility] [address] [place] [address] 10/18/2025 4:20 PM EST Office Visit [facility] [employer] [facility] [facility] Bone & Mineral Metabolism [address] [facility], [address] [place] [address] Moustapha Katz MD [address] [facility] [address] [place] [address] documented as of this encounter [...] documented as of this encounter Care Teams Skiver Blockers Relationship Specialty Start Date End Date Chris Medel MD [address] [place], [place] [address] PCP - General 03/14/25 Ruma Hernández APRN [address] [place] [address] Referring Physician Gastroenterology 07/30/23 documented as of this encounter
--- OUTSIDE RECORDS SUMMARY | 2025-06-20 07:41 | XMS_ITS | Encounter Summary ---
Author Organization Healthcare Address [address] [place] [address] Care Team Providers Care Bottom Saw Operator Name Role Phone Urban Brantley DO Primary Care Provider [phone] Ruma Hernández APRICOT WASHER Unavailable [phone] Chris Medel MD Primary Care Provider [phone] Encounter Details Date Type Department Care Team (Late st Contact Info) Description 03/22/2023 Orders Only External Location [address] [place] [address] Provider, External Social History Tobacco Use Types [...] Description 07/11/2025 9:00 AM EDT Clinical Support [facility] [place] [address] [address] 07/11/2025 9:30 AM EDT Social Work [facility]plant [place] [address] [address] [place] [address] 07/11/2025 10:30 AM EDT Office Visit [facility] [address] [place] [address] Portia Maguire MD [address] [facility] [address] [place] [address] 10/03/2025 12:45 PM EST Office Visit Medical Office Building Urology [address] [facility], [address] [place] [address] Suhail Brock MD [address] [place] [address] 10/18/2025 4:20 PM EST Office Visit [facility] [place] Bone & Mineral Metabolism [address] [facility], [address] [place] [address] Moustapha Katz MD [address] [facility] [address] [place] [address] documented as of this encounter [...] documented as of this encounter Care Teams Bottom Saw Operator Relationship Specialty Start Date End Date Urban Brantley DO [address] [place] [address] PCP - General 07/30/23 03/13/25 Chris Medel MD [address] [place] [address] PCP - General 03/14/25 Ruma Hernández APRN [address] [place], [place] [address], [place] [address] Referring Physician Gastroenterology 07/30/23 documented as of this encounter
--- OUTSIDE RECORDS SUMMARY | 2025-06-20 07:41 | XMS_ITS | Encounter Summary ---
Author Organization Healthcare Address [address] [place] [address] Care Team Providers Care Director Museum Or Zoo Name Role Phone Urban Brantley DO Primary Care Provider [phone] Ruma Hernández USER INTERFACE ENGINEER Unavailable [phone] Chris Medel MD Primary Care Provider [phone] Encounter Details Date Type Department Care Team (Late st Contact Info) Description 03/05/2025 Results Follow-Up [facility] [address] [facility] [address] [place] [address] Meaghan Le, RN HOSPITAL LIVER [id number] [address] [place] [id number] Social History Tobacco Use Types Packs/Day Years [...] any clubs o r organizations such as mormon groups, unions, fraternal or athletic groups, or [...] Recorded Patient Health Questionnaire-2 Score 0 03/14/2025 [facility] [place] of Occupat ional Health - Occupational Stress [...] Clinical Support [facility] Transplant [place] [address] [place] [address] 07/11/2025 9:30 AM EDT Social Work [facility] [place] [address] [place] [address] [place] [address] 07/11/2025 10:30 AM EDT Office Visit [facility] [place] [address] [place] [address] Portia Maguire MD [address] [place] [address] 10/03/2025 12:45 PM EST Office Visit Medical Office Building Urology [address] [facility], [address] [place] [address] Suhail Brock MD [address] [place] [address] 10/18/2025 4:20 PM EST Office Visit Professional [employer] [place] Bone & Mineral Metabolism [address] [facility], [address] [place] [address] Moustapha Katz MD [address] [facility] [address] [place] [address] documented as of this encounter [...] as of this encounter Care Teams Director Museum Or Zoo Relationship Specialty Start Date End Date Urban Brantley DO [address] [place] [address] PCP - General 07/30/23 03/13/25 Chris Medel MD [address] [place] [address] PCP - General 03/14/25 Ruma Hernández APRN [address] [place] [address] Referring Physician Gastroenterology 07/30/23 documented as of this encounter
--- OUTSIDE RECORDS SUMMARY | 2025-06-20 07:41 | XMS_ITS | Encounter Summary ---
Author Organization Healthcare Address [address] [place] [address] Care Team Providers Care Winder Tender Name Role Phone Ruma Hernández JOURNEYMAN ELECTRICIAN PV INSTALLER Unavailable [phone] Chris Medel MD Primary Care Provider [phone] Encounter Details Date Type Department Care Team (Late st Contact Info) Description 03/30/2025 Results Follow-Up [facility] [address] [place] [address] Meaghan Le, RN [facility] [id number] [address] [place] [address] Social History Tobacco Use Types [...] How often do you attend chur or scientologist services? More than 4 times [...] Recorded Patient Health Questionnaire-2 Score 0 03/14/2025 [facility] ional Health - Occupational Stress Questionnaire [...] Support [facility] [place] [address] [facility] [address] [place] [address] 07/11/2025 9:30 AM EDT Social Work [facility] [place] [address] [facility] [address] [place] [address] Liliane Jacobs [place], [place] [id number] 07/11/2025 10:30 AM EDT Office Visit [facility] [place] [address] [facility] [address] [place] [address] Portia Maguire MD [address] [facility] [address] [place] [address] 10/03/2025 12:45 PM EST Office Visit Medical Office Building Urology [address] [facility], [address] [place] [address] Suhail Brock MD [address] [facility] [address] [place] [address] 10/18/2025 4:20 PM EST Office Visit Professional [employer] [place] Bone & Mineral Metabolism [address] [facility], [address] [place] [address] Moustapha Katz MD [address] [facility] [address] [place] [address] documented as of this encounter [...] documented as of this encounter Care Teams Winder Tender Relationship Specialty Start Date End Date Chris Medel MD [address] [place] [address] PCP - General 03/14/25 Ruma Hernández APRN 17[address] [facility] 202 [place] [address] Referring Physician Gastroenterology 07/30/23 documented as of this encounter
--- OUTSIDE RECORDS SUMMARY | 2025-06-20 07:41 | XMS_ITS | Encounter Summary ---
Author Organization Healthcare Address [address] [place] [address] Care Team Providers Care Direct Support Professional Home Health Name Role Phone Ruma Hernández BUGGY LADLE TENDER Unavailable [phone] Chris Medel MD Primary Care Provider [phone] Encounter Details Date Type Department Care Team (Late st Contact Info) Description 06/05/2025 Results Follow-Up [facility] [address] [place] [address] Meaghan Le, RN [facility] LIVER [id number] [address] [place] [address] Social History Tobacco Use Types [...] How often do you attend chur or jew services? More than 4 times per year 02/19/2025 Do you belong to any clubs o r organizations such as religious groups, unions, fraternal or athletic groups, or [...] Recorded Patient Health Questionnaire-2 Score 0 06/08/2025 [facility] - Occupational Stress Questionnaire [...] AM EDT Clinical Support [facility] [address] [place] [address] 07/11/2025 9:30 AM EDT Social Work [facility] [address] [place] [address] [place] [address] 07/11/2025 10:30 AM EDT Office Visit [facility] [address] [place] [address] Portia Maguire MD [address] [place] [address] 10/03/2025 12:45 PM EST Office Visit Medical Office Building Urology [address] [facility], [address] [place] [address] Suhail Brock MD [address] [place] [address] 10/18/2025 4:20 PM EST Office Visit [facility] [address] , [address] [place] [address] Moustapha Katz MD [address] [place] [address] documented as of this [...] documented as of this encounter Care Teams Direct Support Professional Home Health Relationship Specialty Start Date End Date Chris Medel MD [address] [place] [address] PCP - General 03/14/25 Ruma Hernández APRN [address] [place] [address] [address] [place], [place] [id number] Referring Physician Gastroenterology 07/30/23 documented as of this encounter
--- OUTSIDE RECORDS SUMMARY | 2025-06-20 07:42 | XMS_ITS | Encounter Summary ---
Author Organization Healthcare Address [address] [place] [address] Care Team Providers Care Ambulatory Service Representative Name Role Phone Urban Brantley DO Primary Care Provider [phone] Ruma Hernández DELICATESSEN DEPARTMENT MANAGER Unavailable Chris Medel MD Primary Care Provider [phone] Encounter Details Date Type Department Care Team (Late st Contact Info) Description 12/30/2023 Orders Only External Location [address] [place] [address] Urban Stafford MD [address] [facility] [address] [place] [address] Social History Tobacco Use Types Packs/Day [...] 07/11/2025 9:00 AM EDT Clinical Support [facility] [address] [facility] [address] [place] [address] 07/11/2025 9:30 [address] EDT [address] [facility] [address] [facility] [address] [place] [address] Liliane Jacobs [place], [place] [id number] 07/11/2025 10:30 AM EDT Office Visit [facility] [address] [facility] [address] [place] [address] Portia Maguire MD [address] [facility] [address] [place] [address] 10/03/2025 12:45 PM EST Office Visit Medical Office Building Urology [address] [facility], [address] [place] [address] Suhail Brock MD [address] [place] [address] 10/18/2025 4:20 PM EST Office Visit [facility] [address] [facility], [address] [place] [address] Moustapha Katz MD [address] [facility] [address] [place] [address] documented as of this [...] documented as of this encounter Care Teams Ambulatory Service Representative Relationship Specialty Start Date End Date Urban Brantley DO [address] [place] [address] PCP - General 07/30/23 03/13/25 Chris Medel MD [address] [place] [address] PCP - General 03/14/25 Ruma Hernández APRN [address] [address] Referring Physician Gastroenterology 07/30/23 documented as of this encounter
[2025-06-20 08:09] LABS: Hematocrit 32.9 % (42.0-52.0); Hemoglobin 11.2 g/dL (14.1-18.0); Mean Corpuscular HGB Conc 34.0 g/dL (31.8-35.4); Mean Corpuscular Hemoglobin 34.6 pg (27.0-31.2); Mean Corpuscular Volume 101.5 fl (80-94); Nucleated Red Blood Cells % 0 %; Platelet Count 75 K/mm3 (142-424); Red Blood Count 3.24 M/mm3 (4.60-6.20); Red Cell Distribution Width-SD 62.0 fL; White Blood Count 7.6 K/mm3 (4.8-10.8)
[2025-06-20 08:16] LABS: Activated Partial Thrombo Time 38.2 seconds (22.8-30.6); INR 1.59 (0.9-1.1); Prothrombin Time 17.1 seconds (10.1-12.5)
[2025-06-20 09:19] LABS: Albumin Level 2.2 g/dl (3.5-5.0); Chloride 102 mmol/L (98-107); Potassium 4.0 mmoL/L (3.5-5.1); Sodium 130 mmol/L (136-145)
[2025-06-20 09:22] LABS: Alanine Aminotransferase 32 U/L (12-78); Albumin/Globulin Ratio 0.5 (1.1-1.8); Alkaline Phosphatase 264 U/L (38-126); Anion Gap 3.0 mEq/L (5-15); Aspartate Amino Transferase 51 U/L (17-59); Bilirubin,Total 6.0 mg/dl (0.2-1.3); Blood Urea Nitrogen 10 mg/dl (9-20); Carbon Dioxide 29 mmol/L (22.0-30.0); Creatinine,Serum 0.70 mg/dl (0.66-1.25); Estimated Glomerular Filt Rate 114 ml/min (>60); GFR (African American) 137 ML/MIN (>60); Globulin 4.4 g/dL (1.3-3.2); Total Protein,Serum 6.6 g/dl (6.3-8.2)
[2025-06-20 09:23] LABS: Calcium 7.7 mg/dl (8.4-10.2); Glucose 90 mg/dl (74-100)
== END 2025-06-20 23:59 | disposition home or self-care (01) ==
LOC: LAB 07:39
PROVIDERS: PCP Family Medicine; Visit Provider Physician Assistant
DX: K72.90 Hepatic failure, unspecified without coma (principal)
CPT/HCPCS: 36415; 80053; 85027; 85610; 85730

== ENCOUNTER 2025-06-22 08:05 | Outpatient (CLI) | payer BC, SELFPAY ==
--- NOTE | 2025-06-22 08:09 | US_ITS ---
FINAL REPORT CLINICAL HISTORY: CIRRHOSIS OF LIVER, CRYPTOGENIC, ASCITES--caryn miguel-- rt side-- 4050 ml FINDINGS: ULTRASOUND-GUIDED PARACENTESIS HISTORY: Ascites ATTENDING PHYSICIAN: Dr. Velez PHYSICIAN INCLINED RAILWAY OPERATOR: 06/21/2025 FINDINGS: After informed consent was obtained and timeout procedure performed, fluid was localized in the right lower quadrant under ultrasound guidance and marked on the skin appropriately. The patient was then prepped and draped in the usual sterile fashion and the skin was anesthetized with 1% Lidocaine. An ultrasound guided paracentesis was then performed using a Turkel needle. Approximately 4 liters of clear yellow fluid was removed. A portion of the fluid was sent to lab. The patient tolerated the procedure well and there were no immediate complications. IMPRESSION: Ultrasound guided right lower quadrant paracentesis as discussed above. 4 liters of clear yellow fluid was removed. Images reviewed, interpreted, and dictated by Dr. Olman Velez. Transcribed by Caryn Kim PA-C. Reviewed, Interpreted and Dictated by Olman Velez MD Transcribed by LAISHA Gaytan Authenticated and [facility]
[2025-06-22 09:45] VITALS: BP 123/66; PULSE 75; RESP 18; O2SAT 98
[2025-06-22] MEDS: ALBUMIN HUMAN 12.5 GM/50 ML BAG IV ×2 (09:45→10:15)
[2025-06-22 10:14] LABS: Appearance,Body Fld. Normal; Source, Body Fld. Thoracentesis Fluid
[2025-06-22 10:15] LABS: Volume,Body Fld. 4050 mL
[2025-06-22 10:16] LABS: RBC,Body Fluid 1000 cells/uL (< 10 X 10^3); TNC,Body Fluid 510 cells/uL (< 1000)
[2025-06-22 10:48] LABS: Polynuclear WBC,Body Fluid 68 %
[2025-06-22 10:49] LABS: Mononuclear WBCs,Body Fluid 32 %
[2025-06-22 11:00] VITALS: BP 123/67; PULSE 78; RESP 18; O2SAT 98
== END 2025-06-22 11:00 | disposition home or self-care (01) ==
LOC: RAD 08:05 → INF 09:32
PROVIDERS: PCP Internal Medicine; Visit Provider Internal Medicine
DX: K70.31 Alcoholic cirrhosis of liver with ascites (principal)
CPT/HCPCS: 49083; 89051; 96365; P9047

== ENCOUNTER 2025-06-27 07:55 | Outpatient (CLI) | payer BC, SELFPAY ==
--- OUTSIDE RECORDS SUMMARY | 2023-08-27 08:34 | XMS_ITS | Encounter Summary ---
[facility] Address [address] [place] [address] Care Team Providers Care Direct Marketing Intern Name Role Phone Karon Urban Jc DO Primary Care Provider +1 -[phone] Encounter Details Date Type Department Care Team (Late st Contact Info) Description 08/27/2023 8:34 AM EDT Hospital Encounter [facility] PULMONARY & CRITICAL CARE MEDICINE [address] [place] [phone] Social History Tobacco Use Types Packs/Day [...] on filedocumented in this encounter Care Teams Direct Marketing Intern Relationship Specialty Start Date End Date Urban Brantley DO [address] [place] [address] [place] [address] PCP - General Internal Medicine 03/22/23 documented as of this encounter
--- OUTSIDE RECORDS SUMMARY | 2025-06-08 08:35 | XMS_ITS | Encounter Summary ---
Author Organization Healthcare Address [address] [place] [address] Care Team Providers Care Deckhand Tuna [employer] Name Role Phone Ruma Hernández AIRCRAFT MAINTENANCE INSTRUCTOR Unavailable [phone] Chris Medel MD Primary Care Provider [phone] Encounter Details Date Type Department Care Team (Latest Contact Info) Description 06/08/2025 8:35 AM EDT - 06/08/2025 11:59 PM EDT Hospital Encounter [facility] [address], [address] [place] [address] Other osteoporosis without current pathological [...] you attend [facility] or catholic services? More than 4 times per year 02/19/2025 Do you belong to any clubs o r organizations such as methodist groups, unions, fraternal or athletic groups, or [...] health care facility (including now)? No 02/19/2025 Humiliation, Afraid, Rape, [...] How often do you attend chur or catholic services? More than 4 times per year 06/15/2025 Do you belong to any clubs o r organizations such as methodist groups, unions, fraternal or athletic groups, or [...] and heating? Not hard at all 06/15/2025 [facility] of Occupat ional Health - Occupational Stress [...] [place] [facility] (including now)? No 06/15/2025 CAGE ASSESSMENT Answer [...] drink first t luisa in the morning (EYE-SENIOR MOBILE DEVELOPER) to steady your nerves or to get rid of a hangover? 0 06/14/2025 CAGE Questionnaire Score 0 025 Utilities Answer Date Recorded In the past 12 months has th [employer], gas, oil, or water [employer] threatened to shut off services in your [...] not drink 06/15/2025 9:39 AM EDT Lisa Guitérrez RN Q3: How often do you have [...] 11 09/13/2024 ergocalciferol (Vitamin D-2) 1.25 MG (00214 UT) capsule Take 1 capsule by mouth [...] by mouth 2 times a day. 01/15/2025 spironolactone (Aldactone) 50 MG tabletIndications :Bilateral leg edema,Cirrhosis of liver with ascites, unspecified hepatic cirrhosis type (CMS/HCC),Other ascites Take 2 tablets by mouth daily. 180 each 3 03/14/2025 5 documented as of this encounter Plan of Treatment Upcoming Encounters Date Type Department Care Team (Late st Contact Info) Description 07/11/2025 9:00 AM EDT Clinical Support [facility] [place] [address] [place] [address] 07/11/2025 9:30 AM EDT Social Work [facility] [address] [place] [address] [place] [address] 07/11/2025 10:30 AM EDT Office Visit [facility] [address] [place] [address] Portia Maguire MD [address] [facility] [address] [place] [address] 10/03/2025 12:45 PM EST Office Visit Medical Office Building Urology [address], [address] [place] [address] Suhail Brock MD [address] [place] [address] 10/18/2025 4:20 PM EST [facility] [address], [address] [place] [address] Moustapha Katz MD [address] [facility] [place] [address] documented as of this encounter Procedures Procedure Name Priority Date/Time Associated Diagnosis Comments DEXA BONE DENSITY Routine 06/08/2025 8:3 5 AM EDT Other osteoporosis without current pathological fracture documented in this encounter Results * Dexa Bone Density (06/08/2025 8:35 AM EDT) Anatomical Region Laterality Modality L-spine Radiographic Liseth ging Narrative 06/17/2025 10:07 PM EDT [facility] - [facility] Clinic [address] [address], [place] [address] DXA Bone Densitometry Report: [06/08/2025] BMD test performed using the [employer] DXA System (analysis version: 14.10) manufactured by [employer]. REFERRING PROVIDER: Dr. Moustapha Katz MD CLINICAL [...] documented as of this encounter Care Teams Deckhand Tuna [employer] Relationship Specialty Start Date End Date Chris Medel MD [address] [place] [address] PCP - General 03/14/25 Ruma Hernández APRN [address] [facility] [address] [place] [address] Referring Physician Gastroenterology 07/30/23 documented as of this encounter
--- OUTSIDE RECORDS SUMMARY | 2025-06-08 12:20 | XMS_ITS | Encounter Summary ---
Author Organization [facility] Address [address] [place] [address] Care Team Providers Care Recreation Teacher Name Role Phone Ruma Hernández SENIOR COLDFUSION DEVELOPER Unavailable [phone] Chris Medel MD Primary Care Provider [phone] Reason for Referral * Consultation (Routine) - Authorized Specialty Diagnoses / Procedures Referred By Gianna reyes Referred To Contact Diagnoses Age-related osteoporosis without current pathological fracture Moustapha Katz MD [address] [place] [address] [place] [phone] Phone: tel: fax: Referral ID Status Reason Start Date Expiration Date V isits Requested Visits Authorized [id number] Authorized 06/08/2025 12/08/2026 1 1 Reason for Visit * Reason Comments Follow-up Encounter Details Date Type Department Care Team ([facility] st Contact Info) Description 06/08/2025 12:20 PM EDT Office Visit [facility] [facility] [address] [place] [address] Moustapha Katz MD [address] [place] [address] Age-related osteoporosis without current pathological [...] week 02/19/2025 How often do you attend [facility] or spiritism services? 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; No thyroid/parathyroid/kidney; No RA/organ transplant/GI disease [...] intake of Ca and take vit D 9423-7629 units daily, he has also been prescribed [...] diagnostic impressions, importance of compliance with treatment, terminal operations manager nature of condition, and need for continued [...] Expiration Date: 12/12/2026 [facility] [1] Calcium, Random, Urine Standing Status: Future Expected Date: 09/17/2025 Expiration Date: 12/12/2026 Release to patient in [facility]: Immediate [1] Creatinine, Random, Urine Standing Status: Future Expected Date: 09/17/2025 Expiration Date: 12/12/2026 [facility]: Im[facility] [1] Osteocalcin by ECIA Standing Status: Future Expected Date: 09/17/2025 Expiration Date: 12/12/2026 [facility]: Im[facility] [1] C-Telopeptide Standing Status: Future Expected Date: 09/17/2025 Expiration Date: 12/12/2026 [facility]: Im[facility] [1] Renal Function Panel, Plasma Standing Status: Future Expected Date: 09/17/2025 Expiration Date: 12/12/2026 [facility]: Im[facility] [1] Bone Specific Alkaline Phosphatase Standing Status: Future Expected Date: 09/17/2025 Expiration Date: 12/12/2026 [facility]: Immediate Alkaline Phosphatase Standing Status: Future Expected Date: 09/17/2025 Expiration Date: 12/12/2026 [facility]: Immediate PTH Panel 1 Standing Status: Future Expected Date: 09/17/2025 Expiration Date: 12/12/2026 [facility]: Immediate Follow Up Bone Mineral Metabolism Labs [...] 07/11/2025 9:00 AM EDT Clinical Support [facility] [place] [address] [place] [address] 07/11/2025 9:[address] [facility] [place] [id number] [place] [address] [place] [address] 07/11/2025 10:30 AM EDT Office Visit [facility] [address] [place] [address] Portia Maguire MD [address] [place] [address] 10/03/2025 12:45 PM EST Office Visit Medical Office Building Urology [address] [facility], [address] [place] [address] Suhail Brock MD [address] [place] [address] 10/18/2025 4:20 PM EST [facility] Visit [facility] [address] [facility], [address] [place] [address] Moustapha Katz MD [address] [place] [address] Scheduled Orders Name Type Priority [...] documented as of this encounter Care Teams Recreation Teacher Relationship Specialty Start Date End Date Chris Medel MD [address] [place] [address] PCP - General 03/14/25 Ruma Hernández APRN [address] [facility] [address] [place] [address] Referring Physician Gastroenterology 07/30/23 documented as of this encounter
--- OUTSIDE RECORDS SUMMARY | 2025-06-13 07:05 | XMS_ITS | Encounter Summary ---
Author Organization Healthcare Address [address] [place] [address] Care Team Providers Care Qa Tester Name Role Phone Ruma Hernández GREEN END WORKER Unavailable [phone] Chris Medel MD Primary Care Provider [phone] Encounter Details Date Type Department Care Team (Latest Contact Info) Description 06/13/2025 7:05 AM EDT - 06/13/2025 9:55 AM EDT [facility] [address], [address] [place] [address] Pre-liver transplant, listed Discharge Disposition: Home or [...] week 02/19/2025 How often do you attend [facility] or voodoo services? More than 4 times per year 02/19/2025 Do you belong to any clubs o r organizations such as nondenominational groups, unions, [employer] or athletic groups, or school groups? Yes [...] a skilled nursing (including now)? No 02/19/2025 Humiliation, Afraid, Rape, [...] any clubs o r organizations such as nondenominational groups, unions, fraternal or athletic groups, or [...] and heating? Not hard at all 06/15/2025 [facility] [place] of Occupat ional Health - Occupational Stress [...] in a skilled nursing (including now)? No 06/15/2025 CAGE ASSESSMENT Answer [...] drink first t luisa in the morning (EYE-BALANCE WHEEL MOTION INSPECTOR) to steady your nerves or to get rid of a hangover? 0 06/14/2025 CAGE Questionnaire Score 0 025 Utilities Answer Date Recorded In the past 12 months has th [place], gas, oil, or water [employer] threatened to shut off services in your [...] one occasion? Never 06/15/2025 9:39 AM EDT Dear, Lisa F, R N * Calculated C-SSRS Risk Score [...] 09/13/2024 5 ergocalciferol (Vitamin D-2) 1.25 MG (00652 UT) capsule Take 1 capsule by mouth [...] Upcoming Encounters Date Type Department Care Team ([facility] st Contact Info) Description 07/11/2025 9:00 AM EDT Clinical Support [facility] [place] [address] [facility] [address] [place] [phone] 07/11/2025 9:30 AM EDT Social Work [facility] [address] [facility] [address] [place] [address] [place] [address] 07/11/2025 10:30 AM EDT Office Visit [facility] [address] [facility] [address] [place] [phone] Portia Maguire MD [address] [facility] [address] [place] [address] 10/03/2025 12:45 PM EST Office Visit Medical Office Building Urology [address] [facility], [address] [place] [address] Suhail Brock MD [address] [facility] [address] [place] [address] 10/18/2025 4:20 PM EST Office Visit [facility] [address] [facility], [address] [place] [address] Moustapha Katz MD [address] [facility] [address] [place] [address] documented as of this encounter [...] documented as of this encounter Care Teams Qa Tester Relationship Specialty Start Date End Date Chris Medel MD [address] [place] [address] PCP - General 03/14/25 Ruma Hernández APRN [address] [place] [address] Referring Physician Gastroenterology 07/30/23 documented as of this encounter
--- OUTSIDE RECORDS SUMMARY | 2025-06-13 08:00 | XMS_ITS | Encounter Summary ---
Author Organization Healthcare Address [address] [place] [address] Care Team Providers Care Machining Engineer Name Role Phone Ruma Hernández MALE IMPERSONATOR Unavailable [phone] Chris Medel MD Primary Care Provider [phone] Reason for Referral * Imaging (Urgent) - Closed Specialty Diagnoses / Procedures Referred By Gianna reyes Referred To Contact Radiology Diagnoses Alcoholic cirrhosis, unspecified whether ascites present (CMS/HCC) Procedures US Liver Screen Portia Maguire MD [address] [place] [address] Phone: tel: fax: Referral ID Status Reason Start Date Expiration Date Visits Re quested Visits Authorized [id number] Closed 06/13/2025 12/13/2026 1 1 Reason for Visit * Reason Comments Pre-Liver Txp Follow-up Encounter Details Date Type Department Care Team (Latest Contact Info) Description 06/13/2025 8:00 AM EDT Office Visit [facility] [address] [facility] [address] [place] [address] Portia Maguire MD [address] [place] [address] Alcoholic cirrhosis, unspecified whether ascites present (CMS/HCC) [...] often do you attend chur ch or buddhism services? More than 4 times per year 02/19/2025 Do you belong to any clubs o r organizations such as alevism groups, unions, fraternal or athletic groups, or [...] in a retirement (including now)? No 02/19/2025 Humiliation, Afraid, Rape, [...] week 06/15/2025 How often do you attend [facility] or buddhism services? More than 4 times per year 06/15/2025 Do you belong to any clubs o r organizations such as alevism groups, unions, fraternal or athletic groups, or [...] and heating? Not hard at all 06/15/2025 [facility] of Occupat ional Health - Occupational Stress [...] living in a retirement (including now)? No 06/15/2025 CAGE ASSESSMENT Answer [...] drink first t luisa in the morning (EYE-CATERING DIRECTOR) to steady your nerves or to get [...] 07/11/2025 9:00 AM EDT Clinical Support [facility] [place] [address] [facility] [address] [place] [address] 07/11/2025 9:30 [address] [facility] [place] [address] [facility] [address] [place] [address] [place] [address] 07/11/2025 10:30 AM EDT Office Visit [facility] [place] [address] [place] [address] Portia Maguire MD [address] [place] [address] 10/03/2025 12:45 PM EST Office Visit Medical Office Building Urology [address] [facility], [address] [place] [address] Suhail Brock MD [address] [facility] [address] [place] [address] 10/18/2025 4:20 PM EST [facility] [address] [facility], [address] [place] [address] Moustapha Katz MD [address] [facility] [address] [place] [address] documented as of this encounter [...] are based on Ultrasound LI-RADS version 2017. [email or web address]-[email or web address] -2017 .pdf CRITICAL RESULT: No. COMMUNICATION: Per [...] recommendations are based on UltrasoundLI-RADS version 2017. [email or web address]-Algorithm-Portrait -2017 .pdf CRITICAL RESULT: No. COMMUNICATION: Per [...] documented as of this encounter Care Teams Machining Engineer Relationship Specialty Start Date End Date Chris Medel MD [address] [place] [address] PCP - General 03/14/25 Ruma Hernández APRN [address] [place] [address] Referring Physician Gastroenterology 07/30/23 documented as of this encounter
--- OUTSIDE RECORDS SUMMARY | 2025-06-13 09:56 | XMS_ITS | Encounter Summary ---
Author Organization [facility] Address [address] [place] [address] Care Team Providers Care Staff Electrical Engineer Name Role Phone Ruma Hernández IT INVESTMENT/PORTFOLIO MANAGER Unavailable [phone] Chris Medel MD Primary Care Provider [phone] Reason for Referral * Imaging (Urgent) - Closed Specialty Diagnoses / Procedures Referred By Gianna reyes Referred To Contact Radiology Diagnoses Alcoholic cirrhosis, unspecified whether ascites present (CMS/HCC) Procedures US Liver Screen Portia Maguire MD [address] [address] Phone: tel: fax: Referral ID Status Reason Start Date Expiration Date Visits Re quested Visits Authorized [id number] Closed 06/13/2025 12/13/2026 1 1 Reason for Visit * Imaging (Urgent) - Closed Specialty Diagnoses / Procedures Referred By Contru reyes Referred To Contact Radiology Diagnoses Alcoholic cirrhosis, unspecified whether ascites present (CMS/HCC) Procedures US Liver Screen Portia Maguire MD [address] [address] Phone: tel: fax:[phone] Referral ID Status Reason Start Date Expiration Date Visits Re quested Visits Authorized [id number] Closed 06/13/2025 12/13/2026 1 1 Encounter Details Date Type Department Care Team (Latest Contact Info) Description 06/13/2025 9:56 AM EDT - 06/13/2025 10:35 AM EDT Hospital Encounter [facility] [address] [place] [address] Alcoholic cirrhosis, unspecified whether ascites present (CMS/HCC) Discharge Disposition: Home or Self Care Social [...] often do you attend chur ch or episcopal services? More than 4 times per year 02/19/2025 Do you belong to any clubs o r organizations such as advent groups, unions, fraternal or athletic groups, or [...] any time in the past 12 m [facility], were you homeless or living in a nursing home (including now)? No 02/19/2025 Humiliation, Afraid, [...] How often do you attend [facility] or episcopal services? More than 4 times per year 06/15/2025 Do you belong to any clubs o r organizations such as advent groups, unions, fraternal or athletic groups, or [...] and heating? Not hard at all 06/15/2025 [facility] of Occupat ional Health - Occupational Stress [...] any time in the past 12 m [facility], were you homeless or living in a nursing home (including now)? No 06/15/2025 CAGE ASSESSMENT [...] drink first t luisa in the morning (EYE-CORPORATE ACCOUNTANT) to steady your nerves or to get [...] 11 09/13/2024 ergocalciferol (Vitamin D-2) 1.25 MG (85617 UT) capsule Take 1 capsule by mouth [...] Description 07/11/2025 9:00 AM EDT Clinical Support [facility] [place] [address] [place] [address] 07/11/2025 9:30 AM EDT Social Work [facility] [place] [address] [place] [address] [place] [address] 07/11/2025 10:30 AM EDT Office Visit [facility] [place] [address] [place] [address] Portia Maguire MD [address] [place] [address] 10/03/2025 12:45 PM EST Office Visit Medical Office Building Urology [address] [facility], [address] [place] [address] Suhail Brock MD [address] [place] [address] 10/18/2025 4:20 PM EST Office Visit [facility] [place] [facility] [address] [facility], [address] [place] [address] Moustapha Katz MD [address] [place] [address] documented as of this encounter Procedures Procedure Name Priority Date/Time Associated Diagnosis Comments US LIVER SCREEN STAT 06/13/2025 10:34 AM EDT Alcoholic cirrhosis, unspecified whether ascites present (CMS/HCC) documented in this encounter Results * US Liver Screen [...] are based on Ultrasound LI-RADS version 2017. [email or web address]-[email or web address]-Algorithm-Portrait -2017 .pdf CRITICAL RESULT: No. COMMUNICATION: Per [...] recommendations are based on UltrasoundLI-RADS version 2017. [email or web address]://[email or web address]-[email or web address]-RN-Algorithm-Portrait -2017 .pdf CRITICAL RESULT: No. COMMUNICATION: Per [...] Diagnosis Alcoholic cirrhosis, unspecified whether ascites present (CMS/HCC) [...] documented as of this encounter Care Teams Staff Electrical Engineer Relationship Specialty Start Date End Date Chris Medel MD [address] [place] [address] PCP - General 03/14/25 Ruma Hernández APRN [address] [place] [address] [address] [place] [address] Referring Physician Gastroenterology 07/30/23 documented as of this encounter
--- OUTSIDE RECORDS SUMMARY | 2025-06-13 10:36 | XMS_ITS | Encounter Summary ---
Author Organization Healthcare Address [address] [place] [address] Care Team Providers Care Chiropractic Care Name Role Phone Ruma Hernández MASTER RIGGER Unavailable [phone] Chris Medel MD Primary Care Provider [phone] Reason for Referral * Imaging (Routine) - Closed Specialty Diagnoses / Procedures Referred By Gianna t Referred To Contact Cardiology Diagnoses Pre-liver transplant, listed Procedures Echo, Adult Transthoracic (TTE) Complete Zarina Moore PA [address] [address] Phone: tel: fax: Referral ID Status Reason Start Date Expiration Date V isits Requested Visits Authorized [id number] Closed Perform Procedure 03/22/2025 09/21/2026 1 1 Reason for Visit * Imaging (Routine) - Closed Specialty Diagnoses / Procedures Referred By Contac t Referred To Contact Cardiology Diagnoses Pre-liver transplant, listed Procedures Echo, Adult Transthoracic (TTE) Complete Zarina Moore PA [address] [address] Phone: tel: fax: Referral ID Status Reason Start Date Expiration Date V isits Requested Visits Authorized [id number] Closed Perform Procedure 03/22/2025 09/21/2026 1 1 Encounter Details Date Type Department Care Team (Latest Contact Info) Description 06/13/2025 10:36 AM EDT - 06/13/2025 12:56 PM EDT Hospital Encounter Cardiac Imaging [address] [place] [address] Pre-liver transplant, listed Discharge Disposition: Home or [...] often do you attend chur ch or mandaen services? More than 4 times per year 02/19/2025 Do you belong to any clubs o r organizations such as baptism groups, unions, fraternal or athletic groups, or [...] living in a intermediate (including now)? No 02/19/2025 Humiliation, Afraid, Rape, [...] week 06/15/2025 How often do you attend [facility] or mandaen services? More than 4 times per year 06/15/2025 Do you belong to any clubs o r organizations such as baptism groups, unions, fraternal or athletic groups, or [...] and heating? Not hard at all 06/15/2025 [facility] of Occupat ional Health - Occupational Stress [...] drink first t luisa in the morning (EYE-SHIPPER/RECEIVER) to steady your nerves or to get rid of a hangover? 0 06/14/2025 CAGE Questionnaire Score 0 025 Utilities Answer Date Recorded In the past 12 months has th e electric, gas, oil, or water [employer] threatened to shut off services in your [...] 09/13/2024 5 ergocalciferol (Vitamin D-2) 1.25 MG (69124 UT) capsule Take 1 capsule by mouth [...] Description 07/11/2025 9:00 AM EDT Clinical Support [facility] [place] [address] [place] [address] 07/11/2025 9:30 AM EDT Social Work [facility] [place] [address] [place] [address] [place] [address] 07/11/2025 10:30 AM EDT Office Visit [facility] [address] [place] [address] Portia Maguire MD [address] [place] [address] 10/03/2025 12:45 PM EST Office Visit Medical Office Building Urology [address], [address] [place] [address] Suhail Brock MD [address] [place] [address] 10/18/2025 4:20 PM EST Office Visit Professional [facility] Bone & Mineral Metabolism [address], [address] [place] [address] Moustapha Katz MD [address] [place] [address] documented as of this encounter [...] documented as of this encounter Care Teams Chiropractic Care Relationship Specialty Start Date End Date Chris Medel MD [address] [place] [address] PCP - General 03/14/25 Ruma Hernández APRN [address] [facility] [address] [place] [address] Referring Physician Gastroenterology 07/30/23 documented as of this encounter
--- OUTSIDE RECORDS SUMMARY | 2025-06-13 12:57 | XMS_ITS | Encounter Summary ---
Author Organization Healthcare Address [address] [place] [address] Care Team Providers Care Rip Saw Operator Name Role Phone Ruma Hernández VMWARE CONSULTANT Unavailable [phone] Chris Medel MD Primary Care Provider [phone] Reason for Referral * Imaging (Routine) - Closed Specialty Diagnoses / Procedures Referred By Gianna reyes Referred To Contact Radiology Diagnoses Pre-liver transplant, listed Procedures CT Angio Cardiac Coronary Arteries Zarina Moore PA [address] [address] Phone: tel: fax: Referral ID Status Reason Start Date Expiration Date Visits Re quested Visits Authorized [id number] Closed 03/22/2025 09/21/2026 1 1 Reason for Visit * Imaging (Routine) - Closed Specialty Diagnoses / Procedures Referred By Gianna reyes Referred To Contact Radiology Diagnoses Pre-liver transplant, listed Procedures CT Angio Cardiac Coronary Arteries Zarina Moore PA [address] [address] Phone: tel: fax: Referral ID Status Reason Start Date Expiration Date Visits Re quested Visits Authorized [id number] Closed 03/22/2025 09/21/2026 1 1 Encounter Details Date Type Department Care Team (Latest Contact Info) Description 06/13/2025 12:57 PM EDT - 06/13/2025 11:59 PM EDT Hospital Encounter [facility] [address] [place] [address] Chris Knott RN CH-TARIK Richard 5 T2 [...] week 02/19/2025 How often do you attend [facility] or moravian services? More than 4 times per year 02/19/2025 Do you belong to any clubs o r organizations such as confucianist groups, unions, fraternal or athletic groups, or [...] Recorded Patient Health Questionnaire-2 Score 0 06/08/2025 [facility] - [...] any time in the past 12 m [facility], were you homeless or living in a group home (including now)? No 02/19/2025 CAGE ASSESSMENT [...] drink first t luisa in the morning (EYE-AIR CARRIER MAINTENANCE INSPECTOR) to steady your nerves or to get rid of a hangover? 0 06/14/2025 CAGE Questionnaire Score 0 025 Utilities Answer Date Recorded In the past 12 months has th [employer], gas, oil, or water [employer] threatened to shut off services in your [...] 09/13/2024 5 ergocalciferol (Vitamin D-2) 1.25 MG (39303 UT) capsule Take 1 capsule by mouth [...] 03/14/2025 5 documented as of this encounter Miscellaneous Notes * Ara Castellano, RN - 06/13/2025 1:37 PM EDT Images from the original note were not included. 38862 Understanding coronary computed tomography angiography (CCTA) Coronary [...] site Last Reviewed Date: 2024 00:00:00 ?? 2708-0582 The [employer]. All rights reserved. This information is not intended as a substitute for professional medical care. Always follow your healthcare professional's instructions. documented in this encounter Plan of Treatment Upcoming Encounters Date Type Department Care Team (Late st Contact Info) Description 07/11/2025 9:00 AM EDT Clinical Support [facility] [address] [place] [address] 07/11/2025 9:30 AM EDT Social Work [facility] [address] [place] [address] [place] [address] 07/11/2025 10:30 AM EDT Office Visit [facility] [address] [place] [address] Portia Maguire MD [address] [place] [address] 10/03/2025 12:45 PM EST Office Visit [facility] [address], [address] [place] [address] Suhail Brock MD [address] [place] [address] 10/18/2025 4:20 PM EST Office Visit [facility] [address] [facility], [address] [place] [address] Moustapha Katz MD [address] [place] [address] documented as of this encounter [...] documented as of this encounter Care Teams Rip Saw Operator Relationship Specialty Start Date End Date Chris Medel MD [address] [place] [address] PCP - General 03/14/25 Ruma Hernández APRN [address] [place] [address] Referring Physician Gastroenterology 07/30/23 documented as of this encounter
--- OUTSIDE RECORDS SUMMARY | 2025-06-14 15:47 | XMS_ITS | Encounter Summary ---
Author Organization Healthcare Address [address] [place] [address] Care Team Providers Care Glass Mold Repairer Name Role Phone Ruam Hernández LACEMAKER Unavailable [phone] Chris Medel MD Primary Care Provider [phone] Reason for Visit * Auth/Cert (Routine) Specialty Diagnoses / Procedures Referred By Contru t Referred To Contact Diagnoses Transplant Luis Angel Bee MD [address] [address] Phone: tel: fax: [facility] Inpatient [address] [place] [address] Phone: tel: Referral ID Status Reason Start Date Expiration Date Visits Re quested Visits Authorized [id number] 1 1 Encounter Details Date Type Department Care Team (Late st Contact Info) Description 06/14/2025 3:47 PM EDT - 06/15/2025 6:14 PM EDT Hospital Encounter [facility] Inpatient [address] [place] [address] Luis Angel Bee MD [address] [address] Alcoholic cirrhosis, unspecified whether ascites [...] often do you attend chur ch or restorationism services? More than 4 times per year 02/19/2025 Do you belong to any clubs o r organizations such as moravian groups, unions, fraternal or athletic groups, or [...] week 06/15/2025 How often do you attend [facility] or restorationism services? 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 07/11/2025 10:30 [address] [facility] 10/03/2025 12:45 PM Suhail Brock MD [facility] 10/18/2025 4:20 PM Moustapha Katz MD [...] 09/13/2024 5 ergocalciferol (Vitamin D-2) 1.25 MG (48446 UT) capsule Take 1 capsule by mouth [...] 65 yo M who was admitted to [facility] on 06/14 for possible liver transplant. Pre-operative [...] PCP name and Address: Chris Medel MD [address] [place] [address] / [place] [address] Referring provider name and address: No referring provider defined for this encounter. Chief Concern, Brief History of Present Illness, and Hospital Course David Serrano is a 65 yo M with history of alcohol-associated cirrhosis, renal Stones, GERD, Gout, hypocalcemia, and history of iron overload requiring therapeutic phlebotomy who was admitted to [facility] on 06/14 for possible liver transplant. Pre-operative [...] a day with meals. ergocalciferol 1.25 MG (43882 UT) capsule Commonly known as: Vitamin D-2 [...] Commonly known as: Coreg ergocalciferol 1.25 MG (23030 UT) capsule Take 1 capsule by mouth [...] Department Center 07/11/2025 9:[address] [facility] 07/11/2025 10:30 [address] [facility] 10/03/2025 12:45 PM Suhail Brock MD [facility] 10/18/2025 4:20 PM Moustapha Katz MD [...] prior to discharge. Luis Angel Bee M.D. body former Department of Surgery / Transplantation [facility] [email or web address] Transplant Center, [address] [place] [address] Dictation software disclaimer: Parts of this note was generated using voice recognition equipment and technology provided by the [facility]. Despite a reasonable effort at proofreading, it is subject to basic sciences dean related errors, omissions, spelling errors, changes in [...] since 06/13 ergocalciferol (Vitamin D-2) 1.25 MG (41186 UT) capsule 06/08/2025 No Yes Sig: Take [...] daily. Facility-Administered Medications: None Patients Preferred Pharmacy* [facility] [address] [facility] [address] [facility] [address] [facility] [address] *May default to [facility] if patient is enrolled to [id number] Service. Pharmacy Benefits DAVID SERRANO CDH-N [id number] ([facility]) Covered: <b>Retail</b>, <b>Mail Order</b>, Specialty Unknown: Long-Term Care BIN: [id number] : 1960 Group ID: [id number] PCN: [id number] Legal sex: M Group name: [id number] [employer] Address: [address] [place] [id number] Additional Comments: STERILE PROCESS TECH list has been updated to align with information found in ss, from home pharmacy, and bedside interview with pt. No medications were added or removed from list. Calcitriol is a new medication which has not been started this week. Fill history supports compliance. [facility], last dose was on 06/13/25. Pt will need thermometerpost txp. Pt is enrolled in M2B, allergies verified, and pt enrolled in M2b. Follow up as needed. Interaction Documentation [x] I have reviewed the medication information documented [facility] Healthcare [facility] and [facility] I have reviewed/called the patients home pharmacy to compare discrepancies discovered from review of surescripts, pts chart, documented disease states, and relative information. Notes: [x] Pt allergies and reactions documented within [facility] system have been reviewed, or updated, appropriately after discussion with patient. Notes: Colette Zamudio CPhT 06/15/2025 12:20 PM I agree with the information documented above. All student/internet project manager notes from collection of information has been reviewed. Medications match pt indications and PMHx. * Progress Notes - Dear, Lisa Conley RN - 06/15/2025 9:03 AM EDT Case Management Adult Initial Progress Note David Serarno 65 y.o. male CSN: [id number] Admission: 06/14/2025 3:47 PM Primary Problem: Alcoholic cirrhosis, unspecified whether ascites present (CMS/HCC) Salvationist reviewed chart and spoke with patient to complete this Initial Case Management Assessment. PCP: Chris Medel MD Emergency Contact: Extended Emergency Contact Information Primary Emergency Contact: Stacy Serrano Address: [address] [place] [address] [address] [address] [place] Relation: Spouse Preferred language: Kazakh Assistant Program Manager needed? No Secondary Emergency Contact: Lan Serrano Mobile Relation: Son Preferred language: Kazakh Assistant Program Manager needed? No Insurance: Primary Visit Coverage Payer Plan Sponsor Code Group Number Group Name NANCY CRUZ [facility] [id number] Primary Visit Coverage Subscriber Subscriber ID Subscriber Name Subscriber N Subscriber Address [id number] DAVID SERRANO [id number] [place] [address] [address] [address] Patient information: Floresita Banegas - [phone] = Secondary Emergency Contact. Pt admitted for [...] flight of steps. [address] [place] [address] Current DME: No DME in use. Income Information: Greater than 115 K per month. 2 in household. Housing Circumstances-Z Codes: Private home with 1 SCOTT. Single story home. City water. Patient Referred to: Pt would agree to [facility] referral if recommended. Anticipated Discharge Date: TBD Patient's Discharge Goal: HWA Assistance Available at Discharge: = primary care Secondary care givers = friend/ neighbors Discharge Transport: Follow Up Transport: Home Health / Home Infusion / Outpatient Dialysis Services: No history of home health. No history of home infusion. No history of dialysis. Living Will/Advance Directive/Power of Dredge Deckhand /Guardian: Unable to assess: No Have you reviewed your Advance Directive and is it valid for this stay?: Yes Advance Directive: Patient has advance directive, copy not in chart Advance Directive not in Chart: Copy requested from family (pt states they will call funds development director) Information Provided on Healthcare Directives: Yes Pre-existing [...] Review Outcome: Ongoing, Progressing Flowsheets (Taken 06/14/2025 2922) Progress: no change Outcome Evaluation: Awaiting possible [...] from the original note were not included. [facility] Department of Surgery Division of Abdominal Transplant Surgery History & Physical/Consult Note Subjective History of Present Illness: Chief Complaint: presenting for liver transplant David Serrano is a 65 y.o. male with PMHx significant for alcohol- associated cirrhosis, history of Renal Stones, GERD, Gout, hypocalcemia, and history of iron overload requiring therapeutic phlebotomy. He presents to [facility] on 06/14/2025 for liver transplantation. No recent [...] Maguire MD ergocalciferol (Vitamin D-2) 1.25 MG (51580 UT) capsule Take 1 capsule by mouth [...] are based on Ultrasound LI-RADS version 2017. [email or web address]/-/[email or web address] XR CHEST 2 VIEWS (06/13) IMPRESSION: No acute focal airspace disease. Radiographic Interpretation: I have reviewed the imaging above and agree with the radiologist interpretation. Assessment/Plan Assessment & Plan: David Serrano is a 65 y.o. male with PMHx significant for alcohol- associated cirrhosis, history of Renal Stones, GERD, Gout, hypocalcemia, and history of iron overload requiring therapeutic phlebotomy. He presents to [facility] on 06/14/2025 for liver transplantation. He denies any changes to his health since last seen. Consent was obtained on 06/14/25. Plan: - Admit to [facility] - MEVF - SCDs - NPO Assessment & Plan [...] prior to discharge. Luis Angel Bee M.D. body former Department of Surgery / Transplantation [facility] [email or web address] [facility], [address] [address], [place] [address] Dictation software disclaimer: Parts of this note was generated using voice recognition equipment and technology provided by the [facility]. Despite a reasonable effort at proofreading, it is subject to basic sciences dean related errors, omissions, spelling errors, changes in [...] AM EDT Clinical Support [facility] [address] [place] [address] 07/11/2025 9:30 AM EDT Social Work [facility] [address] [place] [address] [place] [address] 07/11/2025 10:30 AM EDT Office Visit [facility] [address] [place] [address] Portia Maguire MD [address] [facility] [address] [place] [address] 10/03/2025 12:45 PM EST Office Visit Medical Office Building Urology [address], [address] [place] [address] Suhail Brock MD [address] [place] [address] 10/18/2025 4:20 PM EST Office Visit [facility] [address], [address] [place] [address] Moustapha Katz MD [address] [place] [address] Pending Results Name Type Priority [...] QTC Interval 463 ms MUSE ECG P [place] 4 degrees MUSE ECG R [place] 58 degrees MUSE ECG T Wave [place] 22 degrees MUSE ECG Diagnosis Normal sinus rhythm MUSE ECG Diagnosis Cannot rule out Anterior infarct , age undetermined MUSE ECG Diagnosis Abnormal ECG MUSE ECG Diagnosis MUSE ECG Diagnosis Confirmed by Max Gregorio ([id number]) on 06/15/2025 3:47:28 PM MUSE ECG 06/15/2025 10:3 5 AM EDT 06/15/2025 3:47 PM EDT Mary INTERIANO ECG ORDERABLES Final Result Performing Organization Address City/[facility]/ZIP Co de Phone Number MUSE ECG * SARS CoV-2/COVID-19 by PCR - Rapid (06/14/2025 6:47 PM EDT) SARS CoV-2/COVID-1 9 RNA PCR Result Not Detected Not Detected 06/14/2025 8:35 PM EDT [facility] Swab Nasopharyngeal structure / Unknown Non-blood Collection / Unknown 06/14/2025 6:47 PM EDT 06/14/2025 7:49 PM EDT Narrative [facility] - 06/14/2025 8:35 PM EDT [...] MICROBIOLOGY - GENERA L ORDERABLES Final Result [facility] [address] [place] [address] * Leticia auris Surveillance by PCR (06/14/2025 6:47 PM EDT) Leticia auris PCR Result Not Detected Not Detected 06/18/2025 5:43 AM EDT [facility] Swab (Axilla and Groin) Non-blood Collection / Unknown 06/14/2025 6:47 PM EDT 06/14/2025 7:49 PM EDT Narrative [facility] - 06/18/2025 5:43 AM EDT This PCR assay was developed and its performance characteristics determined by [facility] as appropriate for clinical purposes. This assay has not been cleared or approved by the FDA, but is performed in a CLIA regulated laboratory that is qualified to perform high-complexity testing. us Luis Angel Bee MD LAB MICROBIOLOGY - [facility] L ORDERABLES Final Result [facility] [address] [place] [address] * Cytomegalovirus Antibody IgG (06/14/2025 6:31 PM EDT) CMV ANTIBODY IGG <0.20 <=0.59 U/mL 06/16/2025 9:07 PM EDT [facility] ([place]) Blood Venous blood specimen / Unknown Venipuncture / Unknown 06/14/2025 6:31 PM EDT 06/14/2025 7:05 PM EDT Narrative [facility] ([place]) - 06/16/2025 9:07 PM EDT [...] laboratory at the same time. Performed By: [employer] [address] [place] [address] Corem[employer] Pipe: Balwinder Wadsworth MD, PhD CLIA Number: [id number] us Luis Angel Bee MD LAB BLOOD ORDERABLES Nadia l Result [facility] ([place]) [address] [place] [address] * Light Green Top (06/14/2025 6:31 PM EDT) Extra Hold for add-ons 06/14/2025 11:01 PM EDT [facility] Comment:Auto resulted. Blood Venous blood specimen / Unknown 06/14/2025 6:31 PM EDT 06/14/2025 8:12 PM EDT us Luis Angel Bee MD LAB BLOOD ORDERABLES Nadia l Result [facility] [address] [place] [address] * Red Top (06/14/2025 6:31 PM EDT) Extra Hold for add-ons 06/14/2025 11:01 PM EDT [facility] Comment:Auto resulted. Blood Venous blood specimen / Unknown 06/14/2025 6:31 PM EDT 06/14/2025 8:12 PM EDT us Luis Angel Bee MD LAB BLOOD ORDERABLES Nadia l Result [facility] [address] [place] [address] * HIV 1 & 2 Antibody/Antigen Screen (06/14/2025 6:31 PM EDT) HIV 1 & 2 Antibody/Antigen Screen Non Reactive Non Reactive 06/14/2025 7:45 PM EDT [facility] Comment:Screening for HIV 1 & 2 antibodies, and P24 antigen is NONREACTIVE. No confirmatory testing is required. Blood Venous blood specimen / Unknown Venipuncture / Unknown 06/14/2025 6:31 PM EDT 06/14/2025 7:05 PM EDT Luis Angel Bee MD LAB BLOOD ORDERABLES Nadia l Result [facility] [address] [place] [address] * Hepatitis C Virus (HCV) Quantitative PCR (06/14/2025 6:31 PM EDT) Pathologist [facility] Hepatitis C Virus (HCV) Quantitative Interpretation Not Detected Not Detected. 06/18/2025 10:15 PM EDT [facility] Blood Venous blood specimen / Unknown Venipuncture / Unknown 06/14/2025 6:31 PM EDT 06/15/2025 8:51 AM EDT Narrative [facility] - 06/18/2025 10:15 PM EDT [facility] [...] MD LAB BLOOD ORDERABLES [place] [address] * Hepatitis C Antibody (06/14/2025 6:31 PM EDT) Pathologist [facility] Hepatitis C Antibody Negative Negative 06/14/2025 7:45 PM EDT [facility] Blood Venous blood specimen / Unknown Venipuncture / Unknown 06/14/2025 6:31 PM EDT 06/14/2025 7:05 PM EDT Result Neto Bee MD LAB BLOOD ORDERABLES Nadia l Result Performing Organization Address [facility] Co de Phone Number [facility] [address] [place] [address] * Hepatitis B Surface Antigen (06/14/2025 6:31 PM EDT) Hepatitis B Surf Antigen Negative Negative 06/14/2025 8:18 PM EDT [facility] Blood Venous blood specimen / Unknown Venipuncture / Unknown 06/14/2025 6:31 PM EDT 06/14/2025 7:05 PM EDT Result Neto Bee MD LAB BLOOD ORDERABLES Nadia l Result Performing Organization Address [facility] de Phone Number [facility] [address] [place] [address] * (ABNORMAL) Hepatitis B Surface Antibody, Quantitative (06/14/2025 6:31 PM EDT) Pathologist [facility] Hepatitis B Surface Antibody, Quantitative 34.47(H) NonReacti ve: <8, Grayzone: 8 - <12, Reactive: >= 12 mIU/mL 06/14/2025 8:18 PM EDT [facility] Comment: Reactive. Individual is considered immune to HBV infection. Blood Venous blood specimen / Unknown Venipuncture / Unknown 06/14/2025 6:31 PM EDT 06/14/2025 7:05 PM EDT Result Neto Bee MD LAB BLOOD ORDERABLES Nadia l Result Performing Organization Address [facility] Co de Phone Number [facility] [address] [place] [address] * Hepatitis B Core Total Antibody IgG,IgM (06/14/2025 6:31 PM EDT) Hepatitis B Core Total Antibody IgG,IgM Negative Negative 06/14/2025 8:18 PM EDT [facility] Blood Venous blood specimen / Unknown Venipuncture / Unknown 06/14/2025 6:31 PM EDT 06/14/2025 7:05 PM EDT Result [facility] us Luis Angel Bee MD LAB BLOOD ORDERABLES Nadia l Result Performing Organization Address [facility] Co de Phone Number [facility] [address] [place] [address] * (ABNORMAL) Vitamin D 25 Hydroxy (06/14/2025 6:31 PM EDT) Vitamin D 25 Hydroxy 10.8(L) 20.0 - 80.0 ng/mL 06/14/2025 8:19 PM EDT [facility] Blood Venous blood specimen / Unknown Venipuncture / Unknown 06/14/2025 6:31 PM EDT 06/14/2025 7:05 PM EDT Narrative [facility] - 06/14/2025 8:19 PM EDT Testing performed on [employer] Software, standardized against NIST SRM 2972. When testing [...] ORDERABLES Nadia l Result Performing Organization Address [facility] Co de Phone Number [facility] [address] [place] [address] * (ABNORMAL) CBC and Differential (06/14/2025 6:31 PM EDT) WBC Count 7.95 3.70 - 10.30 10*3/uL LAB HEMATOLOGY METHOD 06/14/2025 7:24 PM EDT [facility] RBC Count 2.90(L) 4.60 - 6.10 10*6/uL LAB HEMATOLOGY METHOD 06/14/2025 7:24 PM EDT [facility] HGB 10.1(L) 13.7 - 17.5 g/dL LAB HEMATOLOGY METHOD 06/14/2025 7:24 PM EDT [facility] HCT 29.7(L) 40.0 - 51.0 % LAB HEMATOLOGY METHOD 06/14/2025 7:24 PM EDT [facility] Platelet Count 56(L) 155 - 369 10*3/uL LAB HEMATOLOGY METHOD 06/14/2025 7:24 PM EDT [facility] MCV 102(H) 79 - 98 fL LAB HEMATOLOGY METHOD 06/14/2025 7:24 PM EDT [facility] MCH 34.8(H) 26.0 - 32.0 pg LAB HEMATOLOGY METHOD 06/14/2025 7:24 PM EDT [facility] MCHC 34.0 30.7 - 35.5 g/dL LAB HEMATOLOGY METHOD 06/14/2025 7:24 PM EDT [facility] RDW 16.9(H) 11.5 - 14.5 % LAB HEMATOLOGY METHOD 06/14/2025 7:24 PM EDT [facility] MPV 11.5 8.8 - 12.5 fL LAB HEMATOLOGY METHOD 06/14/2025 7:24 PM EDT [facility] nRBC 0.0 <=0.0 per 100 WBCs LAB HEMATOLOGY METHOD 06/14/2025 7:24 PM EDT [facility] Differential Type Automated LAB HEMATOLOGY METHOD 06/14/2025 7:24 PM EDT [facility] Neutrophils % 56 % LAB HEMATOLOGY METHOD 06/14/2025 7:24 PM EDT [facility] Lymphocytes % 25 % LAB HEMATOLOGY METHOD 06/14/2025 7:24 PM EDT [facility] Monocytes % 13 % LAB HEMATOLOGY METHOD 06/14/2025 7:24 PM EDT [facility] Eosinophils % 4 % LAB HEMATOLOGY METHOD 06/14/2025 7:24 PM EDT [facility] Basophils % 1 % LAB HEMATOLOGY METHOD 06/14/2025 7:24 PM EDT [facility] Immature Granulocytes % 1 % LAB HEMATOLOGY METHOD 06/14/2025 7:24 PM EDT [facility] Neutrophils Absolute 4.56 1.60 - 6.10 10*3/uL LAB HEMATOLOGY METHOD 06/14/2025 7:24 PM EDT [facility] Lymphocytes Absolute 1.97 1.20 - 3.90 10*3/uL LAB HEMATOLOGY METHOD 06/14/2025 7:24 PM EDT [facility] Monocytes Absolute 1.03(H) 0.30 - 0.90 10*3/uL LAB HEMATOLOGY METHOD 06/14/2025 7:24 PM EDT [facility] Eosinophils Absolute 0.31 0.00 - 0.50 10*3/uL LAB HEMATOLOGY METHOD 06/14/2025 7:24 PM EDT [facility] Basophils Absolute 0.04 0.00 - 0.10 10*3/uL LAB HEMATOLOGY METHOD 06/14/2025 7:24 PM EDT [facility] Immature Granulocytes Absolute 0.04 0.00 - 0.06 10*3/uL LAB HEMATOLOGY METHOD 06/14/2025 7:24 PM EDT [facility] Blood Venous blood specimen / Unknown Venipuncture / Unknown 06/14/2025 6:31 PM EDT 06/14/2025 7:06 PM EDT Narrative [facility] - 06/14/2025 7:24 PM EDT Therapeutic decision making should be based on absolute values, rather than percentages. us Luis Angel Bee MD LAB BLOOD ORDERABLES Nadia l Result [facility] [address] [place] [address] * Type and screen (06/14/2025 6:31 PM [...] ORDER MARYA Final Result Performing Organization Address City/[facility]/ZIP Co de Phone Number BLOOD BANK [address] * (ABNORMAL) Protime-INR (06/14/2025 6:31 PM EDT) Prothrombin Time 25.9(H) 12.0 - 14.3 sec LAB COAGULATION METHOD 06/14/2025 7:23 PM EDT [facility] INR 2.3(H) 0.9 - 1.1 LAB COAGULATION METHOD 06/14/2025 7:23 PM EDT [facility] Blood Venous blood specimen / Unknown Venipuncture / Unknown 06/14/2025 6:31 PM EDT 06/14/2025 7:05 PM EDT Narrative [facility] - 06/14/2025 7:23 PM EDT OPTIMAL INR RANGES FOR PATIENT ON ORAL ANTICOAGULANT THERAPY Prevention of venous thromboembolism INR 2.0 to 3.0 In patients with heart disease: Atrial fibrillation INR 2.0 to 3.0 Valvular heart disease INR 2.0 to 3.0 Tissue heart valves INR 2.0 to 3.0 Mechanical prosthetic valves INR 2.5 to 3.5 Prevention of recurrent ND INR 2.5 to 3.5 us Luis Angel Bee MD LAB BLOOD ORDERABLES Nadia l Result Performing Organization Address [facility] Co de Phone Number [facility] [address] [place] [address] * (ABNORMAL) APTT (06/14/2025 6:31 PM EDT) aPTT 47(H) 25 - 35 sec LAB COAGULATION METHOD 06/14/2025 7:23 PM EDT [facility] Blood Venous blood specimen / Unknown Venipuncture / Unknown 06/14/2025 6:31 PM EDT 06/14/2025 7:05 PM EDT us Luis Angel Bee MD LAB BLOOD ORDERABLES Nadia l Result [facility] [address] [place] [address] * (ABNORMAL) Comprehensive metabolic panel (06/14/2025 6:31 PM EDT) Glucose, Plasma 86 74 - 99 mg/dL 06/14/2025 7:35 PM EDT [facility] BUN, Plasma 21 8 - 23 mg/dL 06/14/2025 7:35 PM EDT [facility] Creatinine, Plasma 1.28(H) 0.70 - 1.20 mg/dL 06/14/2025 7:35 PM EDT [facility] BUN/Creatinine Ratio 16 06/14/2025 7:35 PM EDT [facility] Sodium, Plasma 135(L) 136 - 145 mmol/L 06/14/2025 7:35 PM EDT [facility] Potassium, Plasma 3.9 3.6 - 4.9 mmol/L 06/14/2025 7:35 PM EDT [facility] Chloride, Plasma 104 97 - 107 mmol/L 06/14/2025 7:35 PM EDT [facility] CO2, Plasma 24 22 - 29 mmol/L 06/14/2025 7:35 PM EDT [facility] Anion Gap 7 6 - 16 mmol/L 06/14/2025 7:35 PM EDT [facility] Total Calcium, Plasma 7.6(L) 8.9 - 10.2 mg/dL 06/14/2025 7:35 PM EDT [facility] Total Protein 5.6(L) 6.3 - 7.9 g/dL 06/14/2025 7:35 PM EDT [facility] Albumin, Plasma 1.8(L) 3.5 - 5.2 g/dL 06/14/2025 7:35 PM EDT [facility] AST, Plasma 38 10 - 50 U/L 06/14/2025 7:35 PM EDT [facility] ALT, Plasma 31 10 - 50 U/L 06/14/2025 7:35 PM EDT [facility] Alkaline Phosphatase, Plasma 178(H) 40 - 115 U/L 06/14/2025 7:35 PM EDT [facility] Total Bilirubin, Plasma 6.6(H) 0.2 - 1.1 mg/dL 06/14/2025 7:35 PM EDT [facility] eGFRcr 62.5 mL/min/1.7 3m*2 06/14/2025 7:35 PM EDT [facility] Comment:Reported eGFRcr in m L/min/1.73m2 is based the CKD-EPI 2020 equation that does not use a race coefficient. Blood Venous blood specimen / Unknown Venipuncture / Unknown 06/14/2025 6:31 PM EDT 06/14/2025 7:05 PM EDT us Luis Angel Bee MD LAB BLOOD ORDERABLES Nadia crockett Result [facility] [address] [place] [address] documented in this encounter Visit Diagnoses Diagnosis [...] documented as of this encounter Care Teams Glass Mold Repairer Relationship Specialty Start Date End Date Chris Medel MD [address] [place] [address] PCP - General 03/14/25 Ruma Hernández APRN [address] [address] Referring Physician Gastroenterology 07/30/23 documented as of this encounter
--- OUTSIDE RECORDS SUMMARY | 2025-06-15 23:59 | XMS_ITS | Encounter Summary ---
Author Organization [facility] Address [address] [place] [address] Care Team Providers Care Tractor Crane Operator Name Role Phone Ruma Hernández VICE PRESIDENT COMMERCIAL BANK Unavailable [phone] Chris Medel MD Primary Care Provider [phone] Encounter Details Date Type Department Care Team (Late st Contact Info) Description 06/15/2025 11:59 PM EDT Anesthesia Event [facility] OPERATING ROOM [address] [place] [address] Mary Castellon, LAISHA [address] [facility] [address] [place] [address] Fanta Morrissey APRN [address] [place] [address] Anesthesia Record Procedure Summary Procedure Name Responsible [...] you attend [facility] or voodoo services? More than 4 times per year 02/19/2025 Do you belong to any clubs o r organizations such as holiness groups, unions, fraternal or athletic groups, or [...] any time in the past 12 m [facility], were you homeless or living [...] any clubs o r organizations such as holiness groups, unions, fraternal or athletic groups, or [...] heating? Not hard at all 06/15/2025 [facility] of Occupat ional [...] any time in the past 12 m [facility], were you homeless or living [...] drink first t luisa in the morning (EYE-TURNSTILE COLLECTOR) to steady your nerves or to get [...] does not drink 06/15/2025 9:39 AM EDT DearLsia RN Q3: How often do you have six or more drinks on one occasion? Never 06/15/2025 9:39 AM EDT VikyrLisa R N documented as of this encounter Miscellaneous Notes * Anesthesia Preprocedure Evaluation - Mary Castellon PA - 06/15/2025 10:05 AM EDT Procedure Information Date/Time: 06/15/251514 Procedure: TRANSPLANT, LIVER Location: [facility] OR [facility] / [facility] OR Surgeons: Luis Angel Bee MD [facility] David Pop is a 65 y.o. male [...] AM EDT Clinical Support [facility] [place] [address] [place] [address] 07/11/2025 9:30 AM EDT Social Work [facility] [place] [address] [place] [address] [place] [address] 07/11/2025 10:30 AM EDT Office Visit [facility] [place] [address] [place] [address] Portia Maguire MD [address] [place] [address] 10/03/2025 12:45 PM EST Office Visit Medical Office Building Urology [address], [address] [place] [address] Suhail Brock MD [address] [place] [address] 10/18/2025 4:20 PM EST Office Visit [facility] [address] [facility], [address] [place] [address] Moustapha Katz MD [address] [facility] [address] [place] [address] documented as of this encounter [...] documented as of this encounter Care Teams Tractor Crane Operator Relationship Specialty Start Date End Date Chris Medel MD [address] [place] [address] PCP - General 03/14/25 Ruma Hernández APRN [address] [facility] [address] [place] [address] Referring Physician Gastroenterology 07/30/23 documented as of this encounter
--- OUTSIDE RECORDS SUMMARY | 2025-06-27 07:58 | XMS_ITS | Encounter Summary ---
[facility] [address] [place] [address] Care Team Providers Care Actuarial Internship Name Role Phone KaronUrban Hosea CAMARA Primary Care Provider [phone] Encounter Details Date Type Department Care Team (Late st Contact Info) Description 10/14/2023 Telephone [facility] GA[facility] [address] [facility] [address] [place] [address] Ruma Hernández, HUMAN RESOURCES MANAGER 17[address] [facility] [address] [place], [place] [id number] Social History Tobacco Use Types Packs/Day Years [...] on filedocumented in this encounter Care Teams Actuarial Internship Relationship Specialty Start Date End Date Urban Brantley DO [address] [place] [address] PCP - General Internal Medicine 03/22/23 documented as of this encounter
--- OUTSIDE RECORDS SUMMARY | 2025-06-27 07:58 | XMS_ITS | Encounter Summary ---
Author Organization Healthcare Address [address] [place] [address] Care Team Providers Care Associate Director Of Nursing Name Role Phone Ruma Hernández ON CALL PHARMACY TECHNICIAN Unavailable [phone] Chris Medel MD Primary Care Provider [phone] Encounter Details Date Type Department Care Team (Late st Contact Info) Description 06/25/[address] [facility] [address] [place] [address] Meaghan Le, RN [facility] LIVER [id number] [address] [place] [address] Social History Tobacco Use Types [...] do you attend [facility] or jehovah's witness services? More than 4 times per year 02/19/2025 Do you belong to any clubs o r organizations such as christianity groups, unions, [employer] or athletic groups, or school groups? Yes [...] any time in the past 12 m [facility], were you homeless or living in [...] and heating? Not hard at all 06/15/2025 [facility] of Occupat ional Health - Occupational Stress [...] any time in the past 12 m [facility], were you homeless or living in [...] drink first t luisa in the morning (EYE-COMPUTER SERVICE TECHNICIAN) to steady your nerves or to get rid of a hangover? 0 06/14/2025 CAGE Questionnaire Score 0 025 Utilities Answer Date Recorded In the past 12 months has th [employer], gas, oil, or water [employer] threatened to shut off services in your [...] Telephone Encounter - Meaghan Le RN - 06/25/2025 8:00 AM EDT Spoke with and instructed her to have pt increase dose of bryce to 150 mg daily and to rpt labs. stated understanding. documented in this encounter Plan of Treatment Upcoming Encounters Date Type Department Care Team (Late st Contact Info) Description 07/11/2025 9:00 AM EDT Clinical Support [facility] [address] [facility] [address] [place] [address] 07/11/2025 9:30 [address] ED[address] [facility] [address] [facility] [address] [place] [address] Liliane Jacobs [place], [place] [id number] 07/11/2025 10:30 AM EDT Office Visit [facility] [address] [facility] [address] [place] [address] Portia Maguire MD [address] [facility] [address] [place] [address] 10/03/2025 12:45 PM EST Office Visit Medical Office Building Urology [address] [facility], [address] [place] [address] Suhail Brock MD [address] [facility] [address] [place] [address] 10/18/2025 4:20 PM EST [facility] Visit [facility] [address] [facility], [address] [place] [address] Moustapha Katz MD [address] [facility] [address] [place] [address] documented as of this encounter Visit Diagnoses Diagnosis Bilateral leg edema Edema Cirrhosis of liver [...] documented as of this encounter Care Teams Associate Director Of Nursing Relationship Specialty Start Date End Date Chris Medel MD [address] [place] [address] PCP - General 03/14/25 Ruma Hernández APRN [address] [place] [address] Referring Physician Gastroenterology 07/30/23 documented as of this encounter
--- OUTSIDE RECORDS SUMMARY | 2025-06-27 07:58 | XMS_ITS | Clinical Summary ---
Author Organization [facility] Address [address] [place] [address] Care Team Providers Care It Sales Representative Name Role Phone ToniUrban morataya DO Primary Care Provider [phone] Allergies Active Allergy Reactions Criticality Noted Date [...] Recently Relevant to Health Maintenance Insurance [facility] BLUE SHIELD PPO Member Subscriber Plan / Payer (Ef fective 2023-Present) Name:David Pop Relation to Subscriber:Self Name:David Pop Payer ID:[id number] ([facility]) Type:Not on file Address: [address] [place] [id number] Care Teams It Sales Representative Relationship Specialty Start Date End Date Urban Brantley DO [address] [place] [address] PCP - General Internal Medicine 03/22/23
--- OUTSIDE RECORDS SUMMARY | 2025-06-27 07:58 | XMS_ITS | Clinical Summary ---
Author Organization [facility] Address [address] [place] [address] Care Team Providers Care Foreign Student Adviser Name Role Phone Ruma Hernández CIGARETTE CATCHER Unavailable [phone] Chris Medel MD Primary Care Provider [phone] Allergies Active Allergy Reactions Criticality Noted Date Comments Lisinopril Cough Low 09/15/2021 Medications carvedilol (Coreg) 3.125 MG tabletIndicatio ns:Cirrhosis of liver with ascites, unspecified hepatic cirrhosis type (CMS/HCC) Take 1 tablet (3.125 mg) by mouth 2 (two) times a day with meals. 60 tablet 11 4 025 Active Additional Information Patient not taking.Reported on 06/15/2025 Xifaxan 550 MG tablet Take 1 tablet by mouth 2 times a day. 5 Active ergocalciferol (Vitamin D-2) 1.25 MG (78038 UT) capsule Take 1 capsule by mouth 1 (one) time per week. 12 capsule 2 5 Active Calcium-Vitamin D (CALTRATE 600 PLUS-VIT D PO) Take 600 mg by mouth 2 times a day. Active furosemide (Lasix) 20 MG tabletIndicatio ns:Bilateral leg edema,Cirrhosis of liver with ascites, unspecified hepatic cirrhosis type (CMS/HCC),Other ascites Take 2 tablets by mouth daily. 180 tablet 3 5 026 Active omeprazole (PriLOSEC) [address] capsuleIndicati ons:Cirrhosis of liver with ascites, unspecified hepatic cirrhosis type (CMS/HCC) Take 2 capsules by mouth daily. 180 capsule 3 5 026 Active calcitriol (Rocaltrol) 0.25 MCG capsule Take 1 capsule by mouth daily. Take 1 capsule daily only on 5 days in the week ( Wednesday to Wednesday only) 24 capsule 5 5 026 Active Additional Information Patient not taking.Reported on 06/15/2025 spironolactone (Aldactone) 50 MG tabletIndicatio ns:Bilateral leg edema,Cirrhosis of liver with ascites, unspecified hepatic cirrhosis type (CMS/HCC),Other ascites Take 3 tablets by mouth daily. 270 each 1 5 026 Active spironolactone (Aldactone) 50 MG tabletIndicatio ns:Bilateral leg edema,Cirrhosis of liver with ascites, unspecified hepatic cirrhosis type (CMS/HCC),Other ascites Take 2 tablets by mouth daily. 180 each 3 5 025 Discontin ued(Reord er) Active Problems Problem Noted Date Diagnosed Date [...] Encounters Date Type Department Care Team Description 06/25/2025 Telephone [facility] [address] [place] [phone] Meaghan Le RN 06/21/2025 Results Follow-Up [facility] [address] [place] [address] Meaghan Le, RN 06/20/2025 Telephone [facility] [address] [place] [phone] Meaghan Le, RN 06/15/2025 11:59 PM EDT Anesthesia Event [facility] OPERATING ROOM [address] [place] [address] Mary Castellon, Fanta Vizcarra, CIGARETTE CATCHER 06/14/2025 3:47 PM EDT - 06/15/2025 6:14 PM EDT Hospital Encounter [facility] Inpatient [address] [place] [address] Luis Angel Bee MD Alcoholic cirrhosis, unspecified whether ascites present (CMS/HCC) (Primary Dx) Discharge Disposition: Home or Self Care 06/14/2025 Travel 06/14/2025 Results Follow-Up [facility] [address] [facility] [address] [place] [phone] Meaghan Le, SILVIO 06/14/2025 Results Follow-Up [facility] [address] [facility] [address] [place] [phone] Meaghan Le, RN 06/13/2025 12:57 PM EDT - 06/13/2025 11:59 PM EDT Hospital Encounter [facility] Radiology [address] [place] [address] Chris Knott, SILVIO Pre-liver transplant, listed Discharge Disposition: Home or Self Care 06/13/2025 10:36 AM EDT - 06/13/2025 12:56 PM EDT Hospital Encounter Cardiac Imaging [address] [place] [address] Pre-liver transplant, listed Discharge Disposition: Home or Self Care 06/13/2025 9:56 AM EDT - 06/13/2025 10:35 AM EDT Hospital Encounter [facility]iology [address] [place] [address] Alcoholic cirrhosis, unspecified whether ascites present (CMS/HCC) Discharge Disposition: Home or Self Care 06/13/2025 8:00 AM EDT Office Visit [facility] [address] [place] [address] Portia Maguire MD Alcoholic cirrhosis, unspecified [...] - 06/13/2025 9:55 AM EDT Hospital Encounter [facility] [address] [place] [address] Pre-liver transplant, listed Discharge Disposition: Home or Self Care 06/13/2025 Telephone [facility] [address] [place] [address] Zeferino Trejo, PharmD 06/13/2025 Travel 06/08/2025 12:20 PM EDT Office Visit [facility] [address] , [address] [place] [address] Moustapha Katz MD Age-related osteoporosis without current pathological fracture (Primary Dx) 06/08/2025 8:35 AM EDT - 06/08/2025 11:59 PM EDT Hospital Encounter Professional [facility] [address] , [address] [place] [address] Other osteoporosis without current pathological fracture Discharge Disposition: Home or Self Care 06/08/2025 Travel 06/07/2025 Telephone [facility] [address] , [address] [place] [address] Mary Chatman LPN 06/06/2025 Telephone [facility] Radiology [address] [place] [phone] Mell Masterson, RN 06/05/2025 Travel 06/05/2025 Results Follow-Up [facility] [address] [place] [phone] Meaghan Le RN 05/22/2025 Telephone [facility] [address] [place] [phone] Meaghan Le RN 05/01/2025 Results Follow-Up [facility] [address] [place] [phone] Meaghan Le RN 04/03/2025 Results Follow-Up [facility] [address] [place] [phone] Meaghan Le RN 03/30/2025 Results Follow-Up [facility] [place] [address] [phone] Meaghan Le, RN from Last 3 Months [...] How often do you attend chur or pentecostal services? More than 4 times [...] How often do you attend chur or pentecostal services? More than 4 times [...] drink first t luisa in the morning (EYE-BIOLOGICAL SCIENCE TECHNICIAN) to steady your nerves or to get rid of a hangover? 0 06/14/2025 CAGE Questionnaire Score 0 025 Utilities Answer Date Recorded In the past 12 months has th [employer] electric, gas, oil, or water company threatened [...] EDT Clinical Support [facility] [address] [facility] [address] [place] [address] 07/11/2025 9:30 AM EDT Social Work [facility] [address] [place] [phone] [place] [address] 07/11/2025 10:30 AM EDT Office Visit [facility] [address] [facility] [address] [place] [address] Portia Maguire MD [address] [facility] [address] [place] [address] 10/03/2025 12:45 PM EST Office Visit Medical Office Building Urology [address] [facility], [address] [place] [address] Suhail Brock MD [address] [facility] [address] [place] [address] 10/18/2025 4:20 PM EST Office Visit [facility] [address] [facility], [address] [place] [address] Moustapha Katz MD [address] [facility] [address] [place] [address] Health Maintenance Due Date Last [...] - Risk 60-74 years 1-dose series) 2021 [id number] Vaccine (1 - season) 2024 UKY-Influenza Vaccine (#1) 2025 [...] Diagnosis Comments COMPREHENSIVE METABOLIC PANEL, PLASMA Routine 06/20/2025 CBC W/O DIFFERENTIAL Routine 06/20/2025 PROTHROMBIN TIME(PT) / INR Routine 06/20/2025 ECG ADULT STAT 06/15/2025 10:35 AM EDT [...] 04/02/2025 PROTHROMBIN TIME(PT) / INR Routine 04/02/2025 from Last 3 Months Results * Prothrombin Time/INR (06/20/2025) Only the most recent of6 resultswithin the time period is included. Pathologist [facility] External Prothrombin Time (PT) 17.1 External INR - Internormal Ratio 1.59 Blood Venous blood specimen / Unknown 06/20/2025 Result [facility] Provider MD LAB BLOOD ORDERABLES Nadia l Result * CBC W/O Differential (06/20/2025) Only the most recent of5 resultswithin the time period is included. Pathologist [facility] External WBC 7.6 External Red Blood Cell (RBC) 3.24 External Hemoglobin (Hgb) 11.20 External Hematocrit (Hct) 32.9 External Platelet Count (Plt) 75 Blood Venous blood specimen / Unknown 06/20/2025 Result [facility] Provider MD LAB BLOOD ORDERABLES Nadia l Result * Comprehensive Metabolic Panel, Plasma (06/20/2025) Only the most recent of6 resultswithin the time period is included. Pathologist [facility] External Glucose 90 External BUN 10 External Creatinine Blood 0.70 mg/dL External Sodium (Na) 130 mEq/L External Potassium (K) 4.0 External Chloride (Cl) 102 External Carbon Dioxide (CO2) 29 External Anion Gap (AG) 3.0 External Calcium (Ca) 7.7 External Total Protein 6.6 External Albumin 2.2 g/dL External AST (SGOT) 51 External ALT (SGPT) 32 External Alkaline Phosphatase 264 External Bilirubin Total 6.0 mg/dL External Estimated GFR 114 Blood Venous blood specimen / Unknown 06/20/2025 Result [facility] Provider MD LAB BLOOD ORDERABLES Nadia l Result * ECG Adult (06/15/2025 10:35 AM EDT) Pathologist [facility] EKG DIAGNOSIS CLASS Abnormal MUSE ECG Ventricular Rate 65 BPM MUSE ECG Atrial Rate 65 BPM MUSE ECG LA Interval 162 ms MUSE ECG QRSD Interval 86 ms MUSE ECG QT Interval 446 ms MUSE ECG QTC Interval 463 ms MUSE ECG P [place] 4 degrees MUSE ECG R [place] 58 degrees MUSE ECG T Wave [place] 22 degrees MUSE ECG Diagnosis Normal sinus [...] Detected 06/18/2025 5:[address] [facility] Swab (Axilla and Groin) Non-blood Collection / Unknown 06/14/2025 6:47 PM EDT 06/14/2025 7:49 PM EDT Narrative [facility] - 06/18/2025 5:43 AM EDT This PCR assay was developed and its performance characteristics determined by [facility] as appropriate for clinical purposes. This assay has not been cleared or approved by the FDA, but is performed in a CLIA regulated laboratory that is qualified to perform high-complexity testing. Luis Angel Bee MD LAB MICROBIOLOGY - GENERA L ORDERABLES Final Result [facility] [address] [place] [address] * SARS CoV-2/COVID-19 by PCR - Rapid (06/14/2025 6:47 PM EDT) SARS CoV-2/COVID-1 9 RNA PCR Result Not Detected Not Detected 06/14/2025 8:35 PM EDT [facility] Swab Nasopharyngeal structure / Unknown Non-blood Collection / Unknown 06/14/2025 6:47 PM EDT 06/14/2025 7:49 PM EDT Narrative [facility] - 06/14/2025 8:35 PM [...] L ORDERABLES Final Result Performing Organization Address [facility] [address]/ZIP Co de Phone Number [facility] [address] [place] [address] * (ABNORMAL) Hepatitis B Surface Antibody, Quantitative (06/14/2025 6:31 PM EDT) Pathologist [facility] Hepatitis B Surface Antibody, Quantitative 34.47(H) NonReacti ve: <8, Grayzone: 8 - <12, Reactive: >= 12 mIU/mL 06/14/2025 8:[address] [facility] Comment: Reactive. Individual is considered immune to HBV infection. Blood Venous blood specimen / Unknown Venipuncture / Unknown 06/14/2025 6:31 PM EDT 06/14/2025 7:05 PM EDT us Luis Angel Bee MD LAB BLOOD ORDERABLES Nadia l Result Performing Organization Address [facility] [address]/ZIP Co de Phone Number [facility] [address] [place] [address] * Light Green Top (06/14/2025 6:31 PM EDT) Pathologist [facility] Extra Hold for add-ons 06/14/2025 11:01 PM EDT [facility] Comment:Auto resulted. Blood Venous blood specimen / Unknown 06/14/2025 6:31 PM EDT 06/14/2025 8:12 PM EDT us Luis Angel Bee MD LAB BLOOD ORDERABLES Nadia l Result Performing Organization Address [facility] [address]/ZIP Co de Phone Number [facility] [address] [place] [address] * Red Top (06/14/2025 6:31 PM EDT) Pathologist [facility] Extra Hold for add-ons 06/14/2025 11:01 PM EDT [facility] Comment:Auto resulted. Blood Venous blood specimen / Unknown 06/14/2025 6:31 PM EDT 06/14/2025 8:12 PM EDT Result Neto Bee MD LAB BLOOD ORDERABLES Nadia l Result Performing Organization Address City/[facility] [address]/[facility] Co de Phone Number [facility] [address] [place] [address] * Hepatitis C Virus (HCV) Quantitative PCR (06/14/2025 6:31 PM EDT) [facility] Hepatitis C Virus (HCV) Quantitative Interpretation Not Detected Not Detected. 06/18/2025 10:15 PM EDT [facility] Blood Venous blood specimen / Unknown Venipuncture / Unknown 06/14/2025 6:31 PM EDT 06/15/2025 8:51 AM EDT Narrative [facility] - 06/18/2025 10:15 PM [...] ORDERABLES Nadia l Result Performing Organization Address City/[facility] [address]/[facility] Co de Phone Number [facility] [address] [place] [address] * HIV 1 & 2 Antibody/Antigen Screen (06/14/2025 6:31 PM EDT) Pathologist [facility] HIV 1 & 2 Antibody/Antigen Screen Non Reactive Non Reactive 06/14/2025 7:45 PM EDT [facility] Comment:Screening for HIV 1 & 2 antibodies, and P24 antigen is NONREACTIVE. No confirmatory testing is required. Blood Venous blood specimen / Unknown Venipuncture / Unknown 06/14/2025 6:31 PM EDT 06/14/2025 7:05 PM EDT us Luis Angel Bee MD LAB BLOOD ORDERABLES Naida l Result Performing Organization Address [facility] [address]/[facility] Co de Phone Number [facility] [address] [place] [address] * Hepatitis C Antibody (06/14/2025 6:31 PM EDT) Hepatitis C Antibody Negative Negative 06/14/2025 7:[address] [facility] Blood Venous blood specimen / Unknown Venipuncture / Unknown 06/14/2025 6:31 PM EDT 06/14/2025 7:05 PM EDT Result Neto Bee MD LAB BLOOD ORDERABLES Nadia l Result [facility] [address] [place] [address] * Hepatitis B Core Total Antibody IgG,IgM (06/14/2025 6:31 PM EDT) Pathologist [facility] Hepatitis B Core Total Antibody IgG,IgM Negative Negative 06/14/2025 8:18 PM EDT [facility] Blood Venous blood specimen / Unknown Venipuncture / Unknown 06/14/2025 6:31 PM EDT 06/14/2025 7:05 PM EDT us Luis Angel Bee MD LAB BLOOD ORDERABLES Nadia l Result Performing Organization Address [facility] [address]/[facility] Co de Phone Number [facility] [address] [place] [address] * (ABNORMAL) Vitamin D 25 Hydroxy (06/14/2025 6:31 PM EDT) Only the most recent of2 resultswithin the time period is included. Pathologist [facility] Vitamin D 25 Hydroxy 10.8(L) 20.0 - 80.0 ng/mL 06/14/2025 8:19 PM EDT [facility] Blood Venous blood specimen / Unknown Venipuncture / Unknown 06/14/2025 6:31 PM EDT 06/14/2025 7:05 PM EDT Narrative [facility] - 06/14/2025 8:19 PM EDT Testing performed on [employer], standardized against NIST SRM 2972. When testing [...] ORDERABLES Nadia l Result Performing Organization Address City/[facility] [address]/ZIP Co de Phone Number [facility] [address] [place] [address] * Hepatitis B Surface Antigen (06/14/2025 6:31 PM EDT) Pathologist [facility] Hepatitis B Surf Antigen Negative Negative 06/14/2025 8:18 PM EDT [facility] Blood Venous blood specimen / Unknown Venipuncture / Unknown 06/14/2025 6:31 PM EDT 06/14/2025 7:05 PM EDT Luis Angel Bee MD LAB BLOOD ORDERABLES Nadia l Result [facility] [address] [place] [address] * Cytomegalovirus Antibody IgG (06/14/2025 6:31 PM EDT) CMV ANTIBODY IGG <0.20 <=0.59 U/mL 06/16/2025 9:07 PM EDT [facility] [email or web address]) Blood Venous blood specimen / Unknown Venipuncture / Unknown 06/14/2025 6:31 PM EDT 06/14/2025 7:05 PM EDT Narrative [facility]) - 06/16/2025 9:07 PM EDT INTERPRETIVE INFORMATION: [...] laboratory at the same time. Performed By: [facility] [address] [place] [address] Wedding Designer: Balwinder Wadsworth MD, PhD CLIA Number: [id number] Luis Angel Bee MD LAB BLOOD ORDERABLES Nadia l Result Performing Organization Address City/[facility] [address]/ZIP Co de Phone Number [facility]) [address] [place] [address] * (ABNORMAL) APTT (06/14/2025 6:31 PM EDT) aPTT 47(H) 25 - 35 sec LAB COAGULATION METHOD 06/14/2025 7:23 PM EDT [facility] Blood Venous blood specimen / Unknown Venipuncture / Unknown 06/14/2025 6:31 PM EDT 06/14/2025 7:05 PM EDT us Luis Angel Bee MD LAB BLOOD ORDERABLES Nadia crockett Result [facility] [address] [place] [address] * (ABNORMAL) CBC and Differential (06/14/2025 6:31 PM EDT) WBC Count 7.95 3.70 - 10.30 10*3/uL LAB HEMATOLOGY METHOD 06/14/2025 7:24 PM EDT [facility] RBC Count 2.90(L) 4.60 - 6.10 10*6/uL LAB HEMATOLOGY METHOD 06/14/2025 7:24 PM EDT [facility] HGB 10.1(L) 13.7 - 17.5 g/dL LAB HEMATOLOGY METHOD 06/14/2025 7:24 PM EDT [facility] HCT 29.7(L) 40.0 - 51.0 % LAB HEMATOLOGY METHOD 06/14/2025 7:24 PM EDT [facility] Platelet Count 56(L) 155 - 369 10*3/uL LAB HEMATOLOGY METHOD 06/14/2025 7:24 PM EDT [facility] MCV 102(H) 79 - 98 fL LAB HEMATOLOGY METHOD 06/14/2025 7:24 PM EDT [facility] MCH 34.8(H) 26.0 - 32.0 pg LAB HEMATOLOGY METHOD 06/14/2025 7:24 PM EDT [facility] MCHC 34.0 30.7 - 35.5 g/dL LAB HEMATOLOGY METHOD 06/14/2025 7:24 PM EDT [facility] RDW 16.9(H) 11.5 - 14.5 % LAB HEMATOLOGY METHOD 06/14/2025 7:24 PM EDT [facility] MPV 11.5 8.8 - 12.5 fL LAB HEMATOLOGY METHOD 06/14/2025 7:24 PM EDT [facility] nRBC 0.0 <=0.0 per 100 WBCs LAB HEMATOLOGY METHOD 06/14/2025 7:24 PM EDT [facility] Differential Type Automated LAB HEMATOLOGY METHOD 06/14/2025 7:24 PM EDT [facility] Neutrophils % 56 % LAB HEMATOLOGY METHOD 06/14/2025 7:24 PM EDT [facility] Lymphocytes % 25 % LAB HEMATOLOGY METHOD 06/14/2025 7:24 PM EDT [facility] Monocytes % 13 % LAB HEMATOLOGY METHOD 06/14/2025 7:24 PM EDT [facility] Eosinophils % 4 % LAB HEMATOLOGY METHOD 06/14/2025 7:24 PM EDT [facility] Basophils % 1 % LAB HEMATOLOGY METHOD 06/14/2025 7:24 PM EDT [facility] Immature Granulocytes % 1 % LAB HEMATOLOGY METHOD 06/14/2025 7:24 PM EDT [facility] Neutrophils Absolute 4.56 1.60 - 6.10 10*3/uL LAB HEMATOLOGY METHOD 06/14/2025 7:24 PM EDT [facility] Lymphocytes Absolute 1.97 1.20 - 3.90 10*3/uL LAB HEMATOLOGY METHOD 06/14/2025 7:24 PM EDT [facility] Monocytes Absolute 1.03(H) 0.30 - 0.90 10*3/uL LAB HEMATOLOGY METHOD 06/14/2025 7:24 PM EDT [facility] Eosinophils Absolute 0.31 0.00 - 0.50 10*3/uL LAB HEMATOLOGY METHOD 06/14/2025 7:24 PM EDT [facility] Basophils Absolute 0.04 0.00 - 0.10 10*3/uL LAB HEMATOLOGY METHOD 06/14/2025 7:24 PM EDT [facility] Immature Granulocytes Absolute 0.04 0.00 - 0.06 10*3/uL LAB HEMATOLOGY METHOD 06/14/2025 7:24 PM EDT [facility] Blood Venous blood specimen / Unknown Venipuncture / Unknown 06/14/2025 6:31 PM EDT 06/14/2025 7:06 PM EDT Narrative [facility] - 06/14/2025 7:24 PM EDT Therapeutic decision making should be based on absolute values, rather than percentages. us Luis Angel Bee MD LAB BLOOD ORDERABLES Nadia l Result Performing Organization Address City/[facility]/ZIP Co de Phone Number [facility] [address] [place] [address] * Type and screen (06/14/2025 6:31 PM [...] ORDER MARYA Final Result Performing Organization Address [facility] de Phone Number BLOOD BANK [address] [place] [address], * CT Angio Cardiac Coronary Arteries (06/13/2025 [...] source 192 MDCT scanner (Som[employer] Force, [employer]) was used for data acquisition. A [...] MD on 06/13/2025 10:38 PM Zarina INTERIANO IMKaty CT PROCEDURES Final Result * ECHO, ADULT [...] are based on Ultrasound LI-RADS version 2017. [email or web address] CRITICAL RESULT: No. COMMUNICATION: Per [...] recommendations are based on UltrasoundLI-RADS version 2017. [email or web address] CRITICAL RESULT: No. COMMUNICATION: Per this written report. By electronically signing this report, I, the attending physician, attestthat I have personally reviewed the images/data for the aboveexamination(s) and agree with the final edited report. Drafted by Tye Kenney MD on 06/13/2025 2:04 PM Final report signed by Arturo Wasserman MD on 06/13/2025 2:49 PM Portia Maguire MD IMG US PROCEDURES Final [...] - 20.1 ug/L 06/13/2025 9:09 AM EDT [facility] Comment:Test performed at [facility]. Blood Venous blood specimen / Unknown Venipuncture / Unknown 06/13/2025 6:50 AM EDT 06/13/2025 7:24 AM EDT us Moustapha Katz MD LAB REF LAB BLOOD AND FLUID OR D Final Result [facility] [address] [place] [address] * Pain Management, Quantitative Urine Drug Testing (06/13/2025 6:50 AM EDT) [facility] [place] Alprazolam <20 <20 ng/mL 06/16 10:13 AM EDT [facility] [place] Midazolam <20 <20 ng/mL 2024 10:13 AM EDT [facility] [place] Triazolam <20 <20 ng/mL 2024 10:13 AM EDT [facility] Alprazolam <10 <10 ng/mL 06/16/2025 10:13 AM EDT [facility] Aminoclonazepam <20 <20 ng/mL 10:13 AM EDT [facility] Amphetamine <50 <50 ng/mL 06/16/2025 10:13 AM EDT [facility] Benzoylecgonine <50 <50 ng/mL 10:13 AM EDT [facility] Buprenorphine <10 <10 ng/mL 06/16/2025 10:13 AM EDT [facility] Buprenorphine Glucuronide <50 <50 ng/mL 06/16/2025 10:13 AM EDT [facility] Butalbital <50 <50 ng/mL 06/16/2025 10:13 AM EDT [facility] 9 Carboxy THC <10 <10 ng/mL 06/16/2025 10:13 AM EDT [facility] 9 Carboxy THC Glucuronide <25 <25 ng/mL 06/16/2025 10:13 AM EDT [facility] Clonazepam <10 <10 ng/mL 06/16/2025 10:13 AM EDT [facility] Codeine <50 <50 ng/mL 06/16/2025 10:13 AM EDT [facility] Codeine Glucuronide <50 <50 ng/mL 06/16 10:13 AM EDT [facility] Cyclobenzaprine <50 <50 ng/mL 10:13 AM EDT [facility] Desmethyl Tramadol <50 <50 ng/mL 2024 10:13 AM EDT [facility] Diazepam <10 <10 ng/mL 06/16/2025 10:13 AM EDT [facility] [facility] EDDP - Methadone Metabolite <50 <50 ng/mL 06/16/2025 10:13 AM EDT [facility] Fentanyl <1 <1 ng/mL 06/16/2025 10:13 AM EDT [facility] Hydrocodone <50 <50 ng/mL 06/16/2025 10:13 AM EDT [facility] Hydromorphone <50 <50 ng/mL 06/16/2025 10:13 AM EDT [facility] Hydromorphone Glucuronide <50 <50 ng/mL 06/16/2025 10:13 AM EDT [facility] Lorazepam <20 <20 ng/mL 06/16/2025 10:13 AM EDT [facility] Lorazepam Glucuronide <50 <50 ng/mL 06/16/2025 10:13 AM EDT [facility] MDA <50 <50 ng/mL 06/16/2025 10:13 AM EDT [facility] MDMA <50 <50 ng/mL 06/16/2025 10:13 AM EDT [facility] Meperidine <50 <50 ng/mL 06/16/2025 10:13 AM EDT [facility] Methadone <50 <50 ng/mL 06/16/2025 10:13 AM EDT [facility] Methamphetamine <50 <50 ng/mL 10:13 AM EDT [facility] Methylphenidate <50 <50 ng/mL 10:13 AM EDT [facility] 6 Monoacetyl morphine <10 <10 ng/mL 06/16/2025 10:13 AM EDT [facility] Morphine <50 <50 ng/mL 06/16/2025 10:13 AM EDT [facility] Morphine Glucuronide <50 <50 ng/mL 12/2024 10:13 AM EDT [facility] Naloxone <50 <50 ng/mL 06/16/2025 10:13 AM EDT [facility] Naloxone Glucuronide <50 <50 ng/mL 12/2024 10:13 AM EDT [facility] Norbuprenorphine <10 <10 ng/mL 06/16/20 10:13 AM EDT [facility] Norbuprenorphine Glucuronide <50 <50 ng/mL 06/16/2025 10:13 AM EDT [facility] Nordiazepam <20 <20 ng/mL 06/16/2025 10:13 AM EDT [facility] Norfentanyl <2 <2 ng/mL 06/16/2025 10:13 AM EDT [facility] Normeperidine <50 <50 ng/mL 06/16/2025 10:13 AM EDT [facility] PCP Quant, Ur <50 <50 ng/mL 06/16/2025 10:13 AM EDT [facility] Phenobarbital <50 <50 ng/mL 06/16/2025 10:13 AM EDT [facility] Oxazepam <20 <20 ng/mL 06/16/2025 10:13 AM EDT [facility] Oxazepam Glucuronide <50 <50 ng/mL 12/2024 10:13 AM EDT [facility] Oxycodone <50 <50 ng/mL 06/16/2025 10:13 AM EDT [facility] Oxymorphone <50 <50 ng/mL 06/16/2025 10:13 AM EDT [facility] Oxymorphone Glucuronide <50 <50 ng/mL 06/16/2025 10:13 AM EDT [facility] Secobarbital <50 <50 ng/mL 06/16/2025 10:13 AM EDT [facility] Tramadol <50 <50 ng/mL 06/16/2025 10:13 AM EDT [facility] Temazepam <20 <20 ng/mL 06/16/2025 10:13 AM EDT [facility] Temazepam Glucuronide <50 <50 ng/mL 06/16/2025 10:13 AM EDT [facility] Urine Urine specimen obtained by clean catch procedure / Unknown Non-blood Collection / Unknown 06/13/2025 6:50 AM EDT 06/13/2025 7:26 AM EDT Narrative [facility] - 06/16/2025 10:13 AM [...] laboratory. Test performed by LC-MS/MS at the [facility]. This test was developed and its performance characteristics determined by [facility]. It has not been cleared or approved by the FDA. The laboratory is regulated under CLIA as qualified to perform high-complexity testing. This test is used for clinical purposes. Zarina INTERIANO LAB URINE ORDERABLES Final Resu lt [facility] [address] [place] [address] * C-Telopeptide (06/13/2025 6:50 AM EDT) C Telopeptide Beta Cross Linked Serum Result 397 132 - 752 pg/mL 06/14/2025 9:07 PM EDT [facility] ([place]) Blood Venous blood specimen / Unknown Venipuncture / Unknown 06/13/2025 6:50 AM EDT 06/13/2025 7:25 AM EDT Narrative [facility] BILL) - 06/14/2025 9:07 PM EDT REFERENCE INTERVAL: C-Telopeptide, Glay-Gezfx-Yguwmz, Serum Access complete set of age- and/or gender-specific reference intervals for this test in the [facility] [employer] [facility] Test Directory ([place]). Performed By: [facility] [address] [place] [address] Wedding Designer: Balwinder Wadsworth MD, PhD CLIA Number: [id number] us Moustapha Katz MD LAB BLOOD ORDERABLES Final Res ult Performing Organization Address [facility] [address]/[facility] Co de Phone Number [facility] ([address] [address] * Nicotine Cotinine Metabolite (06/13/2025 6:50 AM EDT) NICOTINE <5 <5 ng/mL 06/14/2025 11:39 AM EDT [facility] Cotinine <5 <5 ng/mL 06/14/2025 11:39 AM EDT [facility] Blood Venous blood specimen / Unknown Venipuncture / Unknown 06/13/2025 6:50 AM EDT 06/13/2025 7:25 AM EDT Narrative [facility] - 06/14/2025 11:39 AM EDT Testing performed by LC-MS/MS at the [facility]/Toxicology Laboratory. This test was developed and its performance characteristics determined by [facility]. This assay has not been cleared by the FDA. The laboratory is regulated under CLIA as qualified to perform high-complexity testing. This test is used for clinical purposes. us Zarina INTERIANO LAB BLOOD ORDERABLES Final Resu lt Performing Organization Address City/[facility] [address]/ZIP Co de Phone Number [facility] [address] [place] [address] * Osteocalcin by ECIA (06/13/2025 6:50 AM EDT) OSTEOCALCIN BY ECIA 8 8 - 36 ng/mL 06/15/2025 12:10 AM EDT [facility] ([place]) Blood Venous blood specimen / Unknown Venipuncture / Unknown 06/13/2025 6:50 AM EDT 06/13/2025 7:58 AM EDT Narrative TEENA CLAY KHAN) - 06/15/2025 12:10 AM EDT INTERPRETIVE INFORMATION: Osteocalcin by ECIA In patients with renal failure, the osteocalcin result may be directly elevated, due to impaired clearance, and/or indirectly elevated due to renal osteodystrophy. Access complete set of age- and/or gender-specific reference intervals for this test in the [facility] ([place]). Performed By: [facility] [address] [place] [address] Wedding Designer: Balwinder Wadsworth MD, PhD CLIA Number: [id number] us Moustapha Katz MD LAB BLOOD ORDERABLES Final Res ult [facility] BILL) [address] [place] [address] * Alcohol Urine (06/13/2025 6:50 AM EDT) Alcohol Urine Negative Negative 06/13/2025 12:[address] [facility] Urine Urine specimen obtained by clean catch procedure / Unknown Non-blood Collection / Unknown 06/13/2025 6:50 AM EDT 06/13/2025 7:27 AM EDT Narrative [facility] - 06/13/2025 12:50 PM EDT The correlation between urine and serum ethanol concentration is highly variable. Test performed by Gas Chromatography at the [facility]. This test was developed and its performance characteristics determined by [facility]. It has not been cleared or approved by the FDA.The laboratory is regulated under CLIA as qualified to perform high-complexity testing. This test is used for clinical purposes only. The correlation between urine and serum ethanol concentration is highly variable. Test performed by Gas Chromatography at the [facility]. This test was developed and its performance characteristics determined by [facility]. It has not been cleared or approved by the FDA.The laboratory is regulated under CLIA as qualified to perform high-complexity testing. This test is used for clinical purposes only. us Zarina INTERIANO LAB URINE ORDERABLES Final Resu lt Performing Organization Address [facility] [address]/[facility] Co de Phone Number [facility] [address] [place] [address] * Vitamin D 1,25 Dihydroxy (06/13/2025 6:50 AM EDT) VITAMIN D, 1, 25-DIHYDROXY 43.7 19.9 - 79.3 pg/mL 06/13/2025 12:37 PM EDT [facility] Blood Venous blood specimen / Unknown Venipuncture / Unknown 06/13/2025 6:50 AM EDT 06/13/2025 7:25 AM EDT Moustapha Katz MD LAB BLOOD ORDERABLES Final Res ult Performing Organization Address [facility] [address]/[facility] Co de Phone Number [facility] [address] [place] [address] * (ABNORMAL) Comprehensive Urine Drug Screening, Qualitative Assay, >= 27 Drug Classes (56:50 AM EDT) Acetaminophen Negative Negative 06/14/2025 9:02 AM EDT [facility] Alprazolam Negative Negative 06/14/2025 9:02 AM EDT [facility] Amantadine Negative Negative 06/14/2025 9:02 AM EDT [facility] Amitriptyline Negative Negative 06/14/2025 9:02 AM EDT [facility] Amphetamine Negative Negative 06/14/2025 9:02 AM EDT [facility] Atenolol Negative Negative 06/14/2025 9:02 AM EDT [facility] Benzoylecgonine Negative Negative 9:02 AM EDT [facility] Bisoprolol Negative Negative 06/14/2025 9:02 AM EDT [facility] Bupropion Negative Negative 06/14/2025 9:02 AM EDT [facility] Butalbital Negative Negative 06/14/2025 9:02 AM EDT [facility] Carbamazepine Negative Negative 06/14/2025 9:02 AM EDT [facility] Carisoprodol Negative Negative 06/14/2025 9:02 AM EDT [facility] Chlorpheniramine Negative Negative 06/14/20 9:02 AM EDT [facility] Citalopram Negative Negative 06/14/2025 9:02 AM EDT [facility] Clindamycin Negative Negative 06/14/2025 9:02 AM EDT [facility] Clonidine Negative Negative 06/14/2025 9:02 AM EDT [facility] Clopidogrel / Ticlopidine Negative Negative 06/14/2025 9:02 AM EDT [facility] Cocaethylene Negative Negative 06/14/2025 9:02 AM EDT [facility] Cocaine Negative Negative 06/14/2025 9:02 AM EDT [facility] Codeine Negative Negative 06/14/2025 9:02 AM EDT [facility] Cyclobenzaprine Negative Negative 9:02 AM EDT [facility] Desvenlafaxine Negative Negative 06/14/2025 9:02 AM EDT [facility] Dextromethorphan Negative Negative 06/14/20 9:02 AM EDT [facility] Diazepam Negative Negative 06/14/2025 9:02 AM EDT [facility] Diltiazem Negative Negative 06/14/2025 9:02 AM EDT [facility] Diphenhydramine Negative Negative 9:02 AM EDT [facility] Doxepine Negative Negative 06/14/2025 9:02 AM EDT [facility] Doxylamine Negative Negative 06/14/2025 9:02 AM EDT [facility] EDDP-Methadone metabolite Negative Negative 06/14/2025 9:02 AM EDT [facility] Fentanyl Negative Negative 06/14/2025 9:02 AM EDT [facility] Fluconazole Negative Negative 06/14/2025 9:02 AM EDT [facility] Fluoxetine Negative Negative 06/14/2025 9:02 AM EDT [facility] Guaifenesin Negative Negative 06/14/2025 9:02 AM EDT [facility] Haloperidol Negative Negative 06/14/2025 9:02 AM EDT [facility] Heroin/6-MARY Negative Negative 06/14/2025 9:02 AM EDT [facility] Hydrocodone Negative Negative 06/14/2025 9:02 AM EDT [facility] Hydroxyzine / Cetirizine metabolite Negative Negative 06/14/2025 9:02 AM EDT [facility] Ibuprofen Negative Negative 06/14/2025 9:02 AM EDT [facility] Imipramine Negative Negative 06/14/2025 9:02 AM EDT [facility] Ketamine Negative Negative 06/14/2025 9:02 AM EDT [facility] Labetolol Negative Negative 06/14/2025 9:02 AM EDT [facility] Lamotrigine Negative Negative 06/14/2025 9:02 AM EDT [facility] Levetiracetam Negative Negative 06/14/2025 9:02 AM EDT [facility] Lidocaine Negative Negative 06/14/2025 9:02 AM EDT [facility] MDA Negative Negative 06/14/2025 9:02 AM EDT [facility] MDMA Negative Negative 06/14/2025 9:02 AM EDT [facility] Memantine Negative Negative 06/14/2025 9:02 AM EDT [facility] Meperidine Negative Negative 06/14/2025 9:02 AM EDT [facility] Meprobamate Negative Negative 06/14/2025 9:02 AM EDT [facility] Metaxalone Negative Negative 06/14/2025 9:02 AM EDT [facility] Methamphetamine Negative Negative 9:02 AM EDT [facility] Methocarbamol Negative Negative 06/14/2025 9:02 AM EDT [facility] Methylecgonine Negative Negative 06/14/2025 9:02 AM EDT [facility] Metoclopramide Negative Negative 06/14/2025 9:02 AM EDT [facility] Metoprolol Negative Negative 06/14/2025 9:02 AM EDT [facility] Metronidazole Negative Negative 06/14/2025 9:02 AM EDT [facility] Midazolam Negative Negative 06/14/2025 9:02 AM EDT [facility] Midazolam Metabolite Negative Negative 06/14/2025 9:02 AM EDT [facility] Mirtazapine Negative Negative 06/14/2025 9:02 AM EDT [facility] Misc Test Result Negative Negative 06/14/20 9:02 AM EDT [facility] Naproxen Negative Negative 06/14/2025 9:02 AM EDT [facility] Nefazodone Negative Negative 06/14/2025 9:02 AM EDT [facility] Norfentanyl Negative Negative 06/14/2025 9:02 AM EDT [facility] Nortriptyline Negative Negative 06/14/2025 9:02 AM EDT [facility] Ordanstron Negative Negative 06/14/2025 9:02 AM EDT [facility] Oxcarbazepine Negative Negative 06/14/2025 9:02 AM EDT [facility] Oxycodone Negative Negative 06/14/2025 9:02 AM EDT [facility] Paroxethine Negative Negative 06/14/2025 9:02 AM EDT [facility] Phenobarbital Negative Negative 06/14/2025 9:02 AM EDT [facility] Phentermine Negative Negative 06/14/2025 9:02 AM EDT [facility] Phenytoin Negative Negative 06/14/2025 9:02 AM EDT [facility] Primidone Negative Negative 06/14/2025 9:02 AM EDT [facility] Promethazine Negative Negative 06/14/2025 9:02 AM EDT [facility] Propofol Negative Negative 06/14/2025 9:02 AM EDT [facility] Propranolol Negative Negative 06/14/2025 9:02 AM EDT [facility] Quetiapine Negative Negative 06/14/2025 9:02 AM EDT [facility] Quinine Negative Negative 06/14/2025 9:02 AM EDT [facility] Rantidine Negative Negative 06/14/2025 9:02 AM EDT [facility] Sertraline Negative Negative 06/14/2025 9:02 AM EDT [facility] Spironolactone Positive(A) Negative 9:02 AM EDT [facility] Tizanidine Negative Negative 06/14/2025 9:02 AM EDT [facility] Topiramate Negative Negative 06/14/2025 9:02 AM EDT [facility] Tramadol Negative Negative 06/14/2025 9:02 AM EDT [facility] Trazadone/ Trazadone metabolite Negative Negative 06/14/2025 9:02 AM EDT [facility] Trimethoprim Negative Negative 06/14/2025 9:02 AM EDT [facility] Valproic Acid Negative Negative 06/14/2025 9:02 AM EDT [facility] Venlafaxine Negative Negative 06/14/2025 9:02 AM EDT [facility] Verapamil Negative Negative 06/14/2025 9:02 AM EDT [facility] Zolpidem Negative Negative 06/14/2025 9:02 AM EDT [facility] Xylazine Negative Negative 06/14/2025 9:02 AM EDT [facility] Urine Urine specimen obtained by clean catch procedure / Unknown Non-blood Collection / Unknown 06/13/2025 6:50 AM EDT 06/13/2025 7:26 AM EDT us Zarina INTERIANO LAB URINE ORDERABLES Final Resu lt [facility] [address] [place] [address] * Phosphorus, Plasma (06/13/2025 6:50 AM EDT) Phosphorus, Plasma 3.5 2.5 - 4.5 mg/dL 06/13/2025 7:56 AM EDT [facility] Blood Venous blood specimen / Unknown Venipuncture / Unknown 06/13/2025 6:50 AM EDT 06/13/2025 7:25 AM EDT us Moustapha Katz MD LAB BLOOD ORDERABLES Final Res ult [facility] [address] [place] [address] * Dexa Bone Density (06/08/2025 8:35 AM EDT) Anatomical Region Laterality Modality L-spine Radiographic Liseth ging Narrative 06/17/2025 10:07 PM EDT [facility] [address], [place] [address] DXA Bone Densitometry Report: [06/08/2025] BMD test performed using the FieldEZ DXA System (analysis version: 14.10) manufactured by [employer]. REFERRING PROVIDER: Dr. Moustapha Katz MD CLINICAL [...] MD IMG DXA PROCEDURES Final Resul t from Last 3 Months Insurance ANTHEM ANTHEM Care Teams Foreign Student Adviser Relationship Specialty Start Date End Date Chris Medel MD [address] [place] [address] PCP - General 03/14/25 Ruma Hernández APRN [address] [facility] [address] [place] [address] Referring Physician Gastroenterology 07/30/23
--- OUTSIDE RECORDS SUMMARY | 2025-06-27 07:58 | XMS_ITS | Encounter Summary ---
Author Organization Healthcare Address [address] [place] [address] Care Team Providers Care Cut Out Machine Operator Name Role Phone Ruma Hernández PAINTER Unavailable [phone] Chris Medel MD Primary Care Provider [phone] Encounter Details Date Type Department Care Team [...] often do you attend chur ch or hindu services? More than 4 times per year 02/19/2025 Do you belong to any clubs o r organizations such as hindu groups, unions, fraternal or athletic groups, or [...] Recorded Patient Health Questionnaire-2 Score 0 06/08/2025 [facility] - Occupational Stress Questionnaire Answer [...] any time in the past 12 m [facility], were you homeless or living in a assisted (including now)? No 02/19/2025 CAGE ASSESSMENT Answer [...] drink first t luisa in the morning (EYE-ACUTE DIALYSIS REGISTERED NURSE) to steady your nerves or to get [...] Description 07/11/2025 9:00 AM EDT Clinical Support [facility] [place] [address] [facility] [address] [place] [phone] 07/11/2025 9:30 AM EDT Social Work [facility] [place] [address] [facility] [address] [place] [phone] [place] [address] 07/11/2025 10:30 AM EDT Office Visit [facility] [place] [address] [facility] [address] [place] [phone] Portia Maguire MD [address] [facility] [address] [place] [phone] 10/03/2025 12:45 PM EST Office Visit Medical Office Building Urology [address] [facility], [address] [place] [address] Suhail Brock MD [address] [facility] [address] [place] [address] 10/18/2025 4:20 PM EST Office Visit [facility] [address] [facility], [address] [place] [address] Moustapha Katz MD [address] [facility] [address] [place] [address] documented as of this encounter [...] documented as of this encounter Care Teams Cut Out Machine Operator Relationship Specialty Start Date End Date Chris Medel MD [address] [place] [address] PCP - General 03/14/25 Ruma Hernández APRN [address] [place] [address] Referring Physician Gastroenterology 07/30/23 documented as of this encounter
--- OUTSIDE RECORDS SUMMARY | 2025-06-27 07:58 | XMS_ITS | Encounter Summary ---
Author Organization Healthcare Address [address] [place] [address] Care Team Providers Care Assistant Merchandiser Name Role Phone Ruma Hernández STAFF RESEARCH ASSOCIATE Unavailable [phone] Chris Medel MD Primary Care Provider [phone] Encounter Details Date Type Department Care Team (Late st Contact Info) Description 05/01/2025 Results Follow-Up [facility] [address] [place] [address] Meaghan Le, RN [id number] [address] [place] [address] Social History Tobacco Use Types [...] How often do you attend chur or mu-ism services? More than 4 times per year 02/19/2025 Do you belong to any clubs o r organizations such as jewish groups, unions, fraternal or athletic groups, or [...] Recorded Patient Health Questionnaire-2 Score 0 03/14/2025 [facility] - Occupational Stress Questionnaire [...] any time in the past 12 m [facility], were you homeless or living in a [...] Description 07/11/2025 9:00 AM EDT Clinical Support [facility] [place] [address] [facility] [address] [place] [phone] 07/11/2025 9:30 AM EDT Social Work [facility] [place] [address] [facility] [address] [place] [phone] Liliane Jacobs [place], [place] [id number] 07/11/2025 10:30 AM EDT Office Visit [facility] [place] [address] [facility] [address] [place] [address] Portia Maguire MD [address] [facility] [address] [place] [address] 10/03/2025 12:45 PM EST Office Visit Medical Office Building Urology [address] [facility] [place] [address] Suhail Brock MD [address] [facility] [address] [place] [address] 10/18/2025 4:20 PM EST Office Visit [facility] [address] [facility], [address] [place] [address] Moustapha Katz MD [address] [facility] [address] [place] [address] documented as of this encounter [...] as of this encounter Care Teams Assistant Merchandiser Relationship Specialty Start Date End Date Chris Medel MD [address] [place] [address] PCP - General 03/14/25 Ruma Hernández APRN [address] [facility] [address] [place] [address] Referring Physician Gastroenterology 07/30/23 documented as of this encounter
--- OUTSIDE RECORDS SUMMARY | 2025-06-27 07:58 | XMS_ITS | Encounter Summary ---
Author Organization Healthcare Address [address] [place] [address] Care Team Providers Care Financial Specialist Name Role Phone Ruma Hernández GRILL ASSOCIATE Unavailable Chris Medel MD Primary Care Provider [phone] Encounter Details Date Type Department Care Team [...] often do you attend chur ch or jewish services? More than 4 times per year [...] in a long-term (including now)? No 02/19/2025 Humiliation, Afraid, Rape, [...] often do you attend chur ch or jewish services? More than 4 times per year [...] and heating? Not hard at all 06/15/2025 [facility] of Occupat ional Health [...] living in a long-term (including now)? No 06/15/2025 CAGE ASSESSMENT Answer [...] drink first t luisa in the morning (EYE-ROUGE SIFTER AND MILLER) to steady your nerves or to get rid of a hangover? 0 06/14/2025 CAGE Questionnaire Score 0 025 Utilities Answer Date Recorded In the past 12 months has th e Fin[employer], gas, oil, or water company threatened to [...] EDT Clinical Support [facility] [place] [address] [place] [address] 07/11/2025 9:30 AM EDT Social Work [facility] [address] [place] [address] ReynaldoLiliane [place] [id number] 07/11/2025 10:30 AM EDT Office Visit [facility] [address] [facility] [address] [place] [address] Portia Maguire MD [address] [facility] [address] [place] [address] 10/03/2025 12:45 PM EST Office Visit Medical Office Building Urology [address] [facility], [address] [place] [address] Suhail Brock MD [address] [facility] [address] [place] [address] 10/18/2025 4:20 PM EST Office Visit [facility] [place] [facility] [address] , [address] [place] [address] Moustapha Katz MD [address] [facility] [address] [place] [address] documented as of this encounter [...] as of this encounter Care Teams Financial Specialist Relationship Specialty Start Date End Date Chris Medel MD [address] [place] [address] PCP - General 03/14/25 Ruma Hernández APRN [address] [place] [address] Referring Physician Gastroenterology 07/30/23 documented as of this encounter
--- OUTSIDE RECORDS SUMMARY | 2025-06-27 07:58 | XMS_ITS | Encounter Summary ---
Author Organization Healthcare Address [address] [place] [address] Care Team Providers Care Spool Tender Name Role Phone Ruma Hernández SPLITTER TENDER Unavailable [phone] Chris Medel MD Primary Care Provider [phone]- [phone] Encounter Details Date Type Department Care Team (Late st Contact Info) Description 06/13/2025 Telephone [facility] [address] [place] [address] Zeferino Trejo, PharmD Social History [...] any time in the past 12 m [facility], were you homeless or living in a fpc (including now)? No 02/19/2025 Humiliation, Afraid, Rape, [...] and heating? Not hard at all 06/15/2025 [facility] of Occupat ional Health [...] any time in the past 12 m [facility], were you homeless or living in a fpc (including now)? No 06/15/2025 CAGE ASSESSMENT Answer [...] drink first t luisa in the morning (EYE-ASSISTANT FINANCE DIRECTOR) to steady your nerves or to get rid of a hangover? 0 06/14/2025 CAGE Questionnaire Score 0 025 Utilities Answer Date Recorded In the past 12 months has th [employer], gas, oil, or water company threatened to [...] AM EDT Clinical Support [facility] [place] [address] [facility] [address] [place] [address] 07/11/2025 9:30 AM EDT Social Work [facility] [place] [address] [place] [address] ReynaldoLiliane reyes [place], [place] [id number] 07/11/2025 10:30 AM EDT Office Visit [facility] [place] [address] [facility] [address] [place] [address] Portia Maguire MD [address] [facility] [address] [place] [address] 10/03/2025 12:45 PM EST Office Visit Medical Office Building Urology [address] [facility], [address] [place] [address] Suhail Brock MD [address] [facility] [address] [place] [address] 10/18/2025 4:20 PM EST [facility] Visit [facility] [address] [facility], [address] [place] [address] Moustapha Katz MD [address] [facility] [address] [place] [address] documented as of this encounter [...] documented as of this encounter Care Teams Spool Tender Relationship Specialty Start Date End Date Chris Medel MD [address] [place] [address] PCP - General 03/14/25 Ruma Hernández APRN [address] [facility] [address] [place] [address] Referring Physician Gastroenterology 07/30/23 documented as of this encounter
--- OUTSIDE RECORDS SUMMARY | 2025-06-27 07:58 | XMS_ITS | Encounter Summary ---
Author Organization Healthcare Address [address] [place] [address] Care Team Providers Care Food Technology Teacher Name Role Phone Ruma Hernández CAR RIDER Unavailable [phone] Chris Medel MD Primary Care Provider [phone] Encounter Details Date Type Department Care Team (Late st Contact Info) Description 06/14/2025 Results Follow-Up [facility] [address] [place] [address] Meaghan Le, RN [facility] LIVER [id number] [address] [place] [address] Social History Tobacco Use Types [...] week 02/19/2025 How often do you attend [facility] or buddhism services? More than 4 times [...] any time in the past 12 m [facility], were you homeless or [...] and heating? Not hard at all 06/15/2025 [facility] [place] of Occupat ional Health - Occupational Stress [...] any time in the past 12 m [facility], were you homeless or [...] drink first t luisa in the morning (EYE-DRY WALL APPLICATOR) to steady your nerves or to get rid of a hangover? 0 06/14/2025 CAGE Questionnaire Score 0 025 Utilities Answer Date Recorded In the past 12 months has th [employer], gas, oil, or water [email or web address] threatened to shut off services in your [...] Description 07/11/2025 9:00 AM EDT Clinical Support [facility] [place] [address] [place] [address] 07/11/2025 9:30 AM EDT Social Work [facility] [place] [address] [place] [address] [place] [address] 07/11/2025 10:30 AM EDT Office Visit [facility] [place] [address] [place] [address] Portia Maguire MD [address] [place] [address] 10/03/2025 12:45 PM EST Office Visit Medical Office Building Urology [address] [facility], [address] [place] [address] Suhail Brock MD [address] [place] [address] 10/18/2025 4:20 PM EST Office Visit [facility] [address], [address] [place] [address] Moustapha Katz MD [address] [place] [address] documented as of this encounter [...] documented as of this encounter Care Teams Food Technology Teacher Relationship Specialty Start Date End Date Chris Medel MD [address] [place] [address] PCP - General 03/14/25 Ruma Hernández APRN [address] [facility] [address] [place], [place] [address] Referring Physician Gastroenterology 07/30/23 documented as of this encounter
--- OUTSIDE RECORDS SUMMARY | 2025-06-27 07:58 | XMS_ITS | Encounter Summary ---
Author Organization Healthcare Address [address] [place] [address] Care Team Providers Care Precinct Police Captain Name Role Phone Ruma Hernández CEMENTER Unavailable Chris Medel MD Primary Care Provider [phone] Encounter Details Date Type Department Care Team (Late st Contact Info) Description 06/14/2025 Results Follow-Up [facility] [address] [place] [address] Meaghan Le, RN [facility] LIVER [id number] [address] [place] [address] Social History Tobacco Use Types [...] How often do you attend [facility] or mosque services? More than 4 times per year [...] time in the past 12 m [facility], were you homeless or living in a [...] often do you attend chur ch or mosque services? More than 4 times per year [...] and heating? Not hard at all 06/15/2025 [facility] [place] of Occupat ional Health - Occupational Stress [...] time in the past 12 m [facility], were you homeless or living in a [...] drink first t luisa in the morning (EYE-SOCIAL INSURANCE SPECIALIST) to steady your nerves or to get rid of a hangover? 0 06/14/2025 CAGE Questionnaire Score 0 025 Utilities Answer Date Recorded In the past 12 months has th [employer], gas, oil, or water [employer] threatened to shut off services in your [...] AM EDT Clinical Support [facility] [place] [address] [place] [address] 07/11/2025 9:30 AM EDT Social Work [facility] [place] [address] [place] [address] [place] [address] 07/11/2025 10:30 AM EDT Office Visit [facility] [place] [address] [place] [address] Portia Maguire MD [address] [facility] [address] [place] [address] 10/03/2025 12:45 PM EST Office Visit Medical Office Building Urology [address] [facility], [address] [place] [address] Suhail Brock MD [address] [place] [address] 10/18/2025 4:20 PM EST Office Visit [facility] [place] [facility] [address] [facility], [address] [place] [address] Moustapha Katz MD [address] [facility] [address] [place] [address] documented as of this encounter Visit Diagnoses [...] documented as of this encounter Care Teams Precinct Police Captain Relationship Specialty Start Date End Date Chris Medel MD [address] [place] [address] PCP - General 03/14/25 Ruma Hernández APRN 17[address] [facility] 202 [place] [address] Referring Physician Gastroenterology 07/30/23 documented as of this encounter
--- OUTSIDE RECORDS SUMMARY | 2025-06-27 07:58 | XMS_ITS | Encounter Summary ---
[facility] [address] [place] [address] Care Team Providers Care Record Changer Name Role Phone KaronUrban Hosea CAMARA Primary Care Provider [phone] Encounter Details Date Type Department Care Team (Late st Contact Info) Description 10/14/2023 Telephone [facility] [address] [facility] 202 [place] [address] Ruma Hernández, UNIVERSITY PRESIDENT 17[address] [facility] 202 [place], [place] [address] Social History Tobacco Use Types Packs/Day Years [...] on filedocumented in this encounter Care Teams Record Changer Relationship Specialty Start Date End Date Urban Brantley DO [address] [place] [address] PCP - General Internal Medicine 03/22/23 documented as of this encounter
--- OUTSIDE RECORDS SUMMARY | 2025-06-27 07:59 | XMS_ITS | Encounter Summary ---
Author Organization Healthcare Address [address] [place] [address] Care Team Providers Care Belt Brander Name Role Phone Ruma Hernández HOURLY CAREGIVER Unavailable [phone] Chris Medel MD Primary Care Provider [phone] Encounter Details Date Type Department Care Team (Late st Contact Info) Description 03/30/2025 Results Follow-Up [facility] [address] [place] [address] Meaghan Le, RN [facility] LIVER [id number] [address] [place] [address] Social History Tobacco Use Types [...] any clubs o r organizations such as mandaeism groups, unions, fraternal or athletic groups, or [...] Recorded Patient Health Questionnaire-2 Score 0 03/14/2025 [facility] - [...] any time in the past 12 m [facility], were you homeless or living [...] AM EDT Clinical Support [facility] [place] [address] [facility] [address] [place] [address] 07/11/2025 9:30 AM EDT Social Work [facility] [place] [address] [facility] [address] [place] [address] Liliane Jacobs [place], [place] [address] 07/11/2025 10:30 AM EDT Office Visit [facility] [place] [address] [facility] [address] [place] [address] Portia Maguire MD [address] [facility] [address] [place] [address] 10/03/2025 12:45 PM EST Office Visit Medical Office Building Urology [address] [facility], [address] [place] [address] Suhail Brock MD [address] [facility] [address] [place] [address] 10/18/2025 4:20 PM EST Office Visit Professional [employer] [place] [facility] [address] [facility], [address] [place] [address] Moustapha Katz MD [address] [facility] [address] [place] [address] documented as of this encounter [...] documented as of this encounter Care Teams Belt Brander Relationship Specialty Start Date End Date Chris Medel MD [address] [place] [address] PCP - General 03/14/25 Ruma Henrández APRN 17[address] [facility] 202 [place] [address] Referring Physician Gastroenterology 07/30/23 documented as of this encounter
--- OUTSIDE RECORDS SUMMARY | 2025-06-27 07:59 | XMS_ITS | Encounter Summary ---
Author Organization Healthcare Address [address] [place] [address] Care Team Providers Care Processing Technologist Name Role Phone Ruma Hernández COMMUNITY LIVING INSTRUCTOR Unavailable [phone] Chris Medel MD Primary Care Provider [phone]- [phone] Encounter Details Date Type Department Care Team (Late st Contact Info) Description 04/03/2025 Results Follow-Up [facility] [address] [place] [address] Meaghan Le, RN [facility] LIVER [id number] [address] [place] [address] Social History Tobacco Use Types [...] How often do you attend chur or rastafari services? More than 4 times [...] Recorded Patient Health Questionnaire-2 Score 0 03/14/2025 [facility] [place] [facility] - Occupational Stress Questionnaire [...] AM EDT Clinical Support [facility] [place] [address] [facility] [address] [place] [address] 07/11/2025 9:30 AM EDT Social Work [facility] [place] [address] [facility] [address] [place] [address] Liliane Jacobs [place], [place] [address] 07/11/2025 10:30 AM EDT Office Visit [facility] [place] [address] [facility] [address] [place] [address] Portia Maguire MD [address] [facility] [address] [place] [address] 10/03/2025 12:45 PM EST Office Visit Medical Office Building Urology [address] [facility], [address] [place] [address] Suhail Brock MD [address] [facility] [address] [place] [address] 10/18/2025 4:20 PM EST Office Visit [facility] [address] [facility], [address] [place] [address] Moustapha Katz MD [address] [facility] [address] [place] [address] documented as of this encounter [...] documented as of this encounter Care Teams Processing Technologist Relationship Specialty Start Date End Date Chris Medel MD [address] [place] [address] PCP - General 03/14/25 Ruma Hernández APRN 1780 [facility] 202 [place] [address] Referring Physician Gastroenterology 07/30/23 documented as of this encounter
--- OUTSIDE RECORDS SUMMARY | 2025-06-27 07:59 | XMS_ITS | Encounter Summary ---
Author Organization Healthcare Address [address] [place] [address] Care Team Providers Care Furniture Assembly Supervisor Name Role Phone Ruma Hernández MALL PLANT CARETAKER Unavailable [phone] Chris Medel MD Primary Care Provider [phone] Encounter Details Date Type Department Care Team (Late st Contact Info) Description 06/05/2025 Results Follow-Up [facility] [address] [place] [address] Meaghan Le, RN [facility] LIVER [id number] [address] [place] [address] Social History Tobacco Use Types [...] Recorded Patient Health Questionnaire-2 Score 0 06/08/2025 [facility] [place] [facility] - Occupational Stress Questionnaire [...] EDT Clinical Support [facility] [address] [place] [address] 07/11/2025 9:30 AM EDT Social Work [facility] [place] [address] [place] [address] [place] [address] 07/11/2025 10:30 AM EDT Office Visit [facility] [place] [address] [place] [address] Portia Maguire MD [address] [place] [address] 10/03/2025 12:45 PM EST Office Visit Medical Office Building Urology [address] [facility], [address] [place] [address] Suhail Brock MD [address] [place] [address] 10/18/2025 4:20 PM EST Office Visit [facility] [address] , [address] [place] [address] Moustapha Katz MD [address] [place] [address] documented as of this encounter [...] documented as of this encounter Care Teams Furniture Assembly Supervisor Relationship Specialty Start Date End Date Chris Medel MD [address] [place] [address] PCP - General 03/14/25 Ruma Hernández APRN [address] [place] [address] [address] [place], [place] [address] Referring Physician Gastroenterology 07/30/23 documented as of this encounter
--- OUTSIDE RECORDS SUMMARY | 2025-06-27 07:59 | XMS_ITS | Encounter Summary ---
Author Organization Healthcare Address [address] [place] [address] Care Team Providers Care Court Abstractor Name Role Phone Ruma Hernández EDUCATIONAL ADMINISTRATOR Unavailable Chris Medel MD Primary Care Provider [phone] Encounter Details Date Type Department Care Team (Late st Contact Info) Description 05/22/2025 Telephone [facility] [address] [place] [address] Meaghan Le, RN [facility] LIVER [id number] [address] [place] [address] Social History Tobacco Use Types [...] How often do you attend chur or restoration services? More than 4 times per year 02/19/2025 Do you belong to any clubs o r organizations such as protestant groups, unions, fraternal or athletic groups, or [...] 03/14/2025 [facility] - Occupational Stress Questionnaire Answer Date [...] the past 12 m [facility], were you homeless or living [...] Description 07/11/2025 9:00 AM EDT Clinical Support [facility] [place] [address] [facility] [address] [place] [address] 07/11/2025 9:30 AM EDT Social Work [facility] [place] [address] [facility] [address] [place] [address] [place] [address] 07/11/2025 10:30 AM EDT Office Visit [facility] [place] [address] [facility] [address] [place] [address] Portia Maguire MD [address] [facility] [address] [place] [address] 10/03/2025 12:45 PM EST Office Visit Medical Office Building Urology [address] [facility], [address] [place] [address] Suhail Brock MD [address] [facility] [address] [place] [address] 10/18/2025 4:20 PM EST Office Visit [facility] [address] [facility], [address] [place] [address] Moustapha Ktaz MD [address] [facility] [address] [place] [address] documented as of this [...] 06/13/2025 10:31 AM Final report signed by lGoria Alexander MD on 06/13/2025 11:30 AM Zarina [...] documented as of this encounter Care Teams Court Abstractor Relationship Specialty Start Date End Date Chris Medel MD [address] [place], [place] [address] PCP - General 03/14/25 Ruma Hernández APRN [address] [place] [address] Referring Physician Gastroenterology 07/30/23 documented as of this encounter
--- OUTSIDE RECORDS SUMMARY | 2025-06-27 07:59 | XMS_ITS | Encounter Summary ---
Author Organization Healthcare Address [address] [place] [address] Care Team Providers Care Slot Manager Name Role Phone Urban Brantley DO Primary Care Provider [phone] Ruma Hernández THREAD CUTTER TENDER Unavailable [phone] Chris Medel MD Primary Care Provider [phone] Encounter Details Date Type Department Care Team (Late st Contact Info) Description 03/05/2025 Results Follow-Up [facility] [address] [facility] [address] [place] [address] Meaghan Le, RN HOSPITAL LIVER [id number] [address] [place] [id number] Social History Tobacco Use Types Packs/Day Years [...] often do you attend chur ch or sabianism services? More than 4 times per year [...] Recorded Patient Health Questionnaire-2 Score 0 03/14/2025 [facility] of Occupat ional Health - Occupational [...] any time in the past 12 m [facility], were you homeless or [...] Description 07/11/2025 9:00 AM EDT Clinical Support [facility] [place] [address] [place] [address] 07/11/2025 9:30 AM EDT Social Work [facility] [place] [address] [place] [address] [place] [address] 07/11/2025 10:30 AM EDT Office Visit [facility] [place] [address] [place] [address] Portia Maguire MD [address] [place] [address] 10/03/2025 12:45 PM EST Office Visit Medical Office Building Urology [address] [facility], [address] [place] [address] Suhail Brock MD [address] [place] [address] 10/18/2025 4:20 PM EST Office Visit Professional [employer] [place] [facility] [address] [facility], [address] [place] [address] Moustapha Katz MD [address] [facility] [address] [place] [address] documented as of this encounter [...] documented as of this encounter Care Teams Slot Manager Relationship Specialty Start Date End Date Urban Brantley DO [address] [place] [address] PCP - General 07/30/23 03/13/25 Chris Medel MD [address] [place] [address] PCP - General 03/14/25 Ruma Hernández APRN [address] [place] [address] Referring Physician Gastroenterology 07/30/23 documented as of this encounter
--- OUTSIDE RECORDS SUMMARY | 2025-06-27 07:59 | XMS_ITS | Encounter Summary ---
Author Organization Healthcare Address [address] [place] [address] Care Team Providers Care Rail Maintenance Worker Name Role Phone Ruma Hernández FOREST FIRE OFFICER Unavailable [phone] Chris Medel MD Primary Care Provider [phone] Encounter Details Date Type Department Care Team (Late st Contact Info) Description 06/21/2025 Results Follow-Up [facility] [address] [place] [address] Meaghan Le, RN [facility] LIVER [id number] [address] [place] [address] Social History Tobacco Use Types [...] week 02/19/2025 How often do you attend [facility] or yazidism services? More than 4 [...] any time in the past 12 m [facility], were you homeless or living in [...] hard at all 06/15/2025 [facility] [place] of Occupat ional Health - Occupational Stress [...] any time in the past 12 m [facility], were you homeless or living in [...] drink first t luisa in the morning (EYE-CHAIN MAKER HAND) to steady your nerves or to get rid of a hangover? 0 06/14/2025 CAGE Questionnaire Score 0 025 Utilities Answer Date Recorded In the past 12 months has [employer], gas, oil, or water [employer] threatened to shut off services in your [...] Encounter Note - Meaghan Le RN - 06/21/2025 1:58 PM EDT Weekly labs - pt is going to have a para tomorrow at [facility]. He is only on 40/100 - if they have to drain him do you want to increase his diuretics? documented in this encounter Plan of Treatment Upcoming Encounters Date Type Department Care Team (Late st Contact Info) Description 07/11/2025 9:00 AM EDT Clinical Support [facility] [address] [facility] [address] [place] [address] 07/11/2025 9:30 [address] ED[address] [facility] [address] [place] [address] [place] [address] Liliane Jacobs [place], [place] [id number] 07/11/2025 10:30 AM EDT Office Visit [facility] [address] [place] [address] [place] [address] Portia Maguire MD [address] [place] [facility] [address] [place] [address] 10/03/2025 12:45 PM EST Office Visit Medical Office Building Urology [address] [facility], [address] [place] [address] Suhail Brock MD [address] [facility] [address] [place] [address] 10/18/2025 4:20 PM EST [facility] Visit [facility] [address] [facility], [address] [place] [address] Moustapha Katz MD [address] [facility] [address] [place] [address] documented as of this encounter [...] documented as of this encounter Care Teams Rail Maintenance Worker Relationship Specialty Start Date End Date Chris Medel MD [address] [place] [address] PCP - General 03/14/25 Ruma Hernández APRN [address] [place] [address] Referring Physician Gastroenterology 07/30/23 documented as of this encounter
--- OUTSIDE RECORDS SUMMARY | 2025-06-27 07:59 | XMS_ITS | Encounter Summary ---
Author Organization Healthcare Address [address] [place] [address] Care Team Providers Care Ice Guard Tester Name Role Phone Urban Brantley DO Primary Care Provider [phone] Ruma Hernández PRESSURE STEAMER TENDER Unavailable [phone] Chris Medel MD Primary Care Provider [phone] Encounter Details Date Type Department Care Team (Late st Contact Info) Description 03/22/2023 Orders Only External Location [address] [place] [address] Provider, External Social History Tobacco Use Types [...] AM EDT Clinical Support [facility] [place] [address] [place] [address] [address] 07/11/2025 9:30 AM EDT Social Work [facility] [place] [address] [address] [place] [address] 07/11/2025 10:30 AM EDT Office Visit [facility] [address] [place] [address] [place] [address] Portia Maguire MD [address] [facility] [address] [place] [address] 10/03/2025 12:45 PM EST Office Visit Medical Office Building Urology [address] [facility], [address] [place] [address] Suhail Brock MD [address] [place] [address] [place] [address] 10/18/2025 4:20 PM EST Office Visit [facility] [place] [facility] [address] [facility], [address] [place] [address] Moustapha Katz MD [address] [facility] [address] [place] [address] documented as of this encounter [...] documented as of this encounter Care Teams Ice Guard Tester Relationship Specialty Start Date End Date Urban Brantley DO [address] [place] [address] PCP - General 07/30/23 03/13/25 Chris Medel MD [address] [place] [address] PCP - General 03/14/25 Ruma Hernández APRN [address] [place], [place] [address] [address] Referring Physician Gastroenterology 07/30/23 documented as of this encounter
--- OUTSIDE RECORDS SUMMARY | 2025-06-27 07:59 | XMS_ITS | Encounter Summary ---
Author Organization Healthcare Address [address] [place] [address] Care Team Providers Care Agent Based Modeler Name Role Phone Ruma Hernández SOFTWARE ARCHITECT Unavailable [phone] Chris Medel MD Primary Care Provider [phone] Encounter Details Date Type Department Care Team [...] often do you attend chur ch or congregational services? More than 4 times per year [...] Recorded Patient Health Questionnaire-2 Score 0 03/14/2025 [facility] - Occupational Stress Questionnaire Answer Date [...] the past 12 months has th e [employer], gas, oil, or water company threatened to [...] Description 07/11/2025 9:00 AM EDT Clinical Support [facility] [place] [address] [place] [address] 07/11/2025 9:30 AM EDT Social Work [facility] [place] [address] [place] [address] [place] [address] 07/11/2025 10:30 AM EDT [facility] [address] [place] [place] [address] Portia Maguire MD [address] [facility] [address] [place] [address] 10/03/2025 12:45 PM EST Office Visit Medical Office Building Urology [address] [facility], [address] [place] [address] Suhail Brock MD [address] [facility] [address] [place] [address] 10/18/2025 4:20 PM EST Office Visit [facility] [place] [facility] [address] [facility], [address] [place] [address] Moustapha Katz MD [address] [facility] [address] [place] [address] documented as [...] documented as of this encounter Care Teams Agent Based Modeler Relationship Specialty Start Date End Date Chris Medel MD [address] [place] [address] PCP - General 03/14/25 Ruma Hernández APRN [address] [facility] [address] [place] [address] Referring Physician Gastroenterology 07/30/23 documented as of this encounter
--- OUTSIDE RECORDS SUMMARY | 2025-06-27 07:59 | XMS_ITS | Encounter Summary ---
Author Organization Healthcare Address [address] [place] [address] Care Team Providers Care Clerk Rating Name Role Phone Urban Brantley DO Primary Care Provider [phone] Ruma Hernández AUGER MILL OPERATOR Unavailable Chris Medel MD Primary Care Provider [phone]- [phone] Encounter Details Date Type Department Care Team (Late st Contact Info) Description 12/30/2023 Orders Only External Location [address] [place] [address] Urban Stafford MD [address] [facility] [address] [place] [address] Social History Tobacco Use Types Packs/Day [...] Description 07/11/2025 9:00 AM EDT Clinical Support [facility] [place] [address] [facility] [address] [place] [address] 07/11/2025 9:30 AM EDT Social Work [facility] [place] [address] [facility] [address] [place] [address] Liliane Jacobs [place], [place] [id number] 07/11/2025 10:30 AM EDT Office Visit [facility] [place] [address] [facility] [address] [place] [address] Portia Maguire MD [address] [facility] [address] [place] [address] 10/03/2025 12:45 PM EST Office Visit Medical Office Building Urology [address] [facility], [address] [place] [address] Suhail Brock MD [address] [place] [address] 10/18/2025 4:20 PM EST Office Visit [facility] [place] [facility] [address] [facility], [address] [place] [address] Moustapha Katz MD [address] [facility] [address] [place] [address] documented as of this encounter [...] documented as of this encounter Care Teams Clerk Rating Relationship Specialty Start Date End Date Urban Brantley DO [address] [place] [address] PCP - General 07/30/23 03/13/25 Chris Medel MD [address] [place] [address] PCP - General 03/14/25 Ruma Hernández APRN [address] [address] Referring Physician Gastroenterology 07/30/23 documented as of this encounter
--- OUTSIDE RECORDS SUMMARY | 2025-06-27 07:59 | XMS_ITS ---
Author Organization [facility] Address [address] 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
--- OUTSIDE RECORDS SUMMARY | 2025-06-27 07:59 | XMS_ITS | Encounter Summary ---
Author Organization Healthcare Address [address] [place] [address] Care Team Providers Care Slubber Runner Name Role Phone Urban Brantley DO Primary Care Provider [phone] Ruma Hernández CORE WINDER MACHINE OPERATOR Unavailable [phone] Chris Medel MD Primary Care Provider [phone] Encounter Details Date Type Department Care Team (Late st Contact Info) Description 05/09/2023 Orders Only External Location [address] [place] [address] Provider, External Social History Tobacco Use Types [...] 9:00 AM EDT Clinical Support [facility] [place] [address] [place] [address] [address] 07/11/2025 9:30 AM EDT Social Work [facility] [place] [address] [address] [place] [address] 07/11/2025 10:30 AM EDT Office Visit [facility] [address] [place] [address] [place] [address] Portia Maguire MD [address] [place] [address] [place] [address] 10/03/2025 12:45 PM EST Office Visit Medical Office Building Urology [address] [facility], [address] [place] [address] Suhail Brock MD [address] [place] [address] [place] [address] 10/18/2025 4:20 PM EST Office Visit [facility] [place] [facility] [address], [address] [place] [address] Moustapha Katz MD [address] [place] [address] documented as of this encounter [...] documented as of this encounter Care Teams Slubber Runner Relationship Specialty Start Date End Date Urban Brantley DO [address] [place] [address] PCP - General 07/30/23 03/13/25 Chris Medel MD [address] [place] [address] PCP - General 03/14/25 Ruma Hernández APRN [address] [place] [address] [address] [place] [address] Referring Physician Gastroenterology 07/30/23 documented as of this encounter
--- OUTSIDE RECORDS SUMMARY | 2025-06-27 07:59 | XMS_ITS | Encounter Summary ---
Author Organization Healthcare Address [address] [place] [address] Care Team Providers Care Tank Wagon Driver Name Role Phone Ruma Hernández CASINO FLOORPERSON Unavailable [phone] Chris Medel MD Primary Care Provider [phone] Encounter Details Date Type Department Care Team (Late st Contact Info) Description 06/06/2025 Telephone [facility] Radiology [address] [place] [address] Mell Masterson, RN CH-DIAGNOSTIC RADIOLOGY Social History [...] How often do you attend [facility] or zoroastrian services? More than 4 times per year [...] often do you attend chur ch or zoroastrian services? More than 4 times per year [...] heating? Not hard at all 06/15/2025 [facility] [place] of Occupat ional Health - Occupational Stress [...] any time in the past 12 m [facility], were you homeless or living in [...] drink first t luisa in the morning (EYE-COLOR EXPERT) to steady your nerves or to get rid of a hangover? 0 06/14/2025 CAGE Questionnaire Score 0 025 Utilities Answer Date Recorded In the past 12 months has th [employer], gas, oil, or water company threatened [...] [facility] Transplant [place] [address] [place] [address] 07/11/2025 9:30 [address] ED[address] Work [facility] [place] [address] [place] [address] [place] [address] 07/11/2025 10:30 AM EDT Office Visit [facility] [place] [address] [place] [address] Portia Maguire MD [address] [place] [address] 10/03/2025 12:45 PM EST Office Visit Medical Office Building Urology [facility] [address] [facility], [address] [place] [address] Suhail Brock MD [address] [place] [address] 10/18/2025 4:20 PM EST Office Visit [facility] [address] [place] [address] Moustapha Katz MD [address] [place] [address] documented as of this encounter [...] documented as of this encounter Care Teams Tank Wagon Driver Relationship Specialty Start Date End Date Chris Medel MD [address] [place] [address] PCP - General 03/14/25 Ruma Hernández APRN [address] [facility] [address] [place] [address] Referring Physician Gastroenterology 07/30/23 documented as of this encounter
--- OUTSIDE RECORDS SUMMARY | 2025-06-27 07:59 | XMS_ITS | Encounter Summary ---
Author Organization Healthcare Address [address] [place] [address] Care Team Providers Care Compliance Review Officer Name Role Phone Ruma Hernández FINANCIAL INSTITUTION MANAGER Unavailable [phone] Chris Medel MD Primary Care Provider [phone] Encounter Details Date Type Department Care Team (Late st Contact Info) Description 06/07/2025 Telephone [facility] [address] [facility], [address] [place] [address] Mary Chatman, MINI AM[facility]-NEPHROLOGY CLINIC [...] How often do you attend chur or mosque services? More than 4 times [...] Recorded Patient Health Questionnaire-2 Score 0 06/08/2025 [facility] of Occupat ional Health - Occupational Stress [...] any time in the past 12 m [facility], were you homeless or living in a correction (including now)? No 02/19/2025 Utilities Answer Date [...] Faxed record request for lab results to [facility] Medical Records F documented in this encounter Plan of Treatment Upcoming Encounters Date Type Department Care Team (Late st Contact Info) Description 07/11/2025 9:00 AM EDT Clinical Support [facility] [place] [address] [facility] [address] [place] [address] 07/11/2025 9:30 AM EDT Social Work [facility] [place] [address] [facility] [address] [place] [address] Liliane Jacobs [place], [place] [id number] 07/11/2025 10:30 AM EDT Office Visit [facility] [place] [address] [facility] [address] [place] [address] Portia Maguire MD [address] [facility] [address] [place] [address] 10/03/2025 12:45 PM EST Office Visit Medical Office Building Urology [address] [facility], [address] [place] [address] Suhail Brock MD [address] [facility] [address] [place] [address] 10/18/2025 4:20 PM EST Office Visit [facility] [place] [facility] [address] [facility], [address] [place] [address] Moustapha Katz MD [address] [facility] [address] [place] [address] documented as of this encounter [...] documented as of this encounter Care Teams Compliance Review Officer Relationship Specialty Start Date End Date Chris Medel MD [address] [place] [address] PCP - General 03/14/25 Ruma Hernández APRN 1780 [facility] 202 [place] [address] Referring Physician Gastroenterology 07/30/23 documented as of this encounter
--- OUTSIDE RECORDS SUMMARY | 2025-06-27 07:59 | XMS_ITS | Encounter Summary ---
Author Organization Healthcare Address [address] [place] [address] Care Team Providers Care Ship Self Defense System Mk1 Operator Name Role Phone Ruma Hernández PREPRESS SPECIALIST Unavailable [phone] Chris Medel MD Primary Care Provider [phone] Reason for Referral * Imaging (Routine) - Pending Review Specialty Diagnoses / Procedures Referred By Gianna reyes Referred To Contact Radiology Diagnoses Pre-liver transplant, listed Procedures US Guided Abdominal Paracentesis Consult to Interventional Radiology Portia Maguire MD [address] [facility] [address] [place] [address] Phone: tel: fax: Referral ID Status Reason Start Date Expiration Date V isits Requested Visits Authorized [id number] Pending Review 06/20/2025 12/20/2026 1 1 Encounter Details Date Type Department Care Team (Late st Contact Info) Description 06/20/2025 Telephone [facility] [address] [facility] [address] [place] [address] Meaghan Le, RN [facility]OSPITAL LIVER [id number] [address] [place] [address] Social History Tobacco Use Types [...] you attend [facility] or mandaen services? More than 4 [...] heating? Not hard at all 06/15/2025 [facility] - Occupational Stress Questionnaire Answer Date [...] drink first t luisa in the morning (EYE-SINKER PULLER) to steady your nerves or to [...] Telephone Encounter - Meaghan Le RN - 06/20/2025 2:48 PM EDT Pts called stating that he is having some pain/pressure in his upper abdomen and some SOA, particularly with sitting upright. Pt states that the pain goes away when he lays down. She said that she thinks his stomach is swollen. Paracentesis order placed and will also fax an order to [facility] in case he can be seen there sooner. Message to provider. documented in this encounter Plan of Treatment Upcoming Encounters Date Type Department Care Team (Late st Contact Info) Description 07/11/2025 9:00 AM EDT Clinical Support [facility] [place] [address] [place] [address] [place] [address] 07/11/2025 9:30 AM EDT Social Work [facility] [place] [address] [place] [address] [place] [address] 07/11/2025 10:30 AM EDT Office Visit [facility] [place] [address] [place] [address] Portia Maguire MD [address] [place] [address] 10/03/2025 12:45 PM EST Office Visit Medical Office Building Urology [address] [facility], [address] [place] [address] Suhail Brock MD [address] [place] [address] 10/18/2025 4:20 PM EST Office Visit Professional [email or web address] [place] [facility] [address] [facility], [address] [place] [address] Moustapha Katz MD [address] [facility] [address] [place] [address] Scheduled Orders Name Type Priority Associated Diagnoses Orde r Schedule US Guided Abdominal Paracentesis Imaging Routine Pre-liver transplant, listed Expected: 06/20/2025 (Approximate), Expires: 12/22/2026 documented as of this encounter Visit Diagnoses [...] documented as of this encounter Care Teams Ship Self Defense System Mk1 Operator Relationship Specialty Start Date End Date Chris Medel MD [address] [place] [address] PCP - General 03/14/25 Ruma Hernández APRN [address] [place] [address] [address] [place] [address] Referring Physician Gastroenterology 07/30/23 documented as of this encounter
--- OUTSIDE RECORDS SUMMARY | 2025-06-27 07:59 | XMS_ITS | Encounter Summary ---
Author Organization Healthcare Address [address] [place] [address] Care Team Providers Care Physician Practice Coordinator Name Role Phone Urban Brantley DO Primary Care Provider [phone] Ruma Hernández CALL OR CONTACT CENTRE TEAM LEADER Unavailable [phone] Chris Medel MD Primary Care Provider [phone] Encounter Details Date Type Department Care Team (Late st Contact Info) Description 03/22/2023 Orders Only External Location [address] [place] [address] Provider, External Social History Tobacco Use Types [...] Clinical Support [facility] Transplant [place] [address] [address] 07/11/2025 9:30 AM EDT Social Work [facility] Transplant [place] [address] [address] [place] [address] 07/11/2025 10:30 AM EDT Office Visit [facility] [address] [place] [address] Portia Maguire MD [address] [place] [address] 10/03/2025 12:45 PM EST Office Visit Medical Office Building Urology [address] [facility], [address] [place] [address] Suhail Brock MD [address] [place] [address] 10/18/2025 4:20 PM EST Office Visit [facility] [place] [facility] [address] [facility], [address] [place] [address] Moustapha Katz MD [address] [place] [facility] [address] [place] [address] documented as of this encounter [...] documented as of this encounter Care Teams Physician Practice Coordinator Relationship Specialty Start Date End Date Urban Brantley DO [address] [place] [address] PCP - General 07/30/23 03/13/25 Chris Medel MD [address] [place] [address] PCP - General 03/14/25 Ruma Hernández APRN [address] [place], [place] [address] [address] Referring Physician Gastroenterology 07/30/23 documented as of this encounter
--- OUTSIDE RECORDS SUMMARY | 2025-06-27 07:59 | XMS_ITS | Encounter Summary ---
Author Organization Healthcare Address [address] [place] [address] Care Team Providers Care Figure Skater Name Role Phone Ruma Hernández BASEBALL HAND SEWER Unavailable [phone] Chris Medel MD Primary Care Provider [phone] Encounter Details Date Type Department Care Team [...] Patient Health Questionnaire-2 Score 0 06/08/2025 [facility] - Occupational Stress Questionnaire Answer Date [...] any time in the past 12 m [facility], were you homeless or [...] Description 07/11/2025 9:00 AM EDT Clinical Support [facility] [place] [address] [facility] [address] [place] [address] 07/11/2025 9:30 AM EDT Social Work [facility] [place] [address] [place] [address] Liliane Jacobs [place] [id number] 07/11/2025 10:30 AM EDT Office Visit [facility] [place] [address] [facility] [address] [place] [address] Portia Maguire MD [address] [facility] [address] [place] [address] 10/03/2025 12:45 PM EST Office Visit Medical Office Building Urology [address] [facility], [address] [place] [address] Suhail Brock MD [address] [facility] [address] [place] [address] 10/18/2025 4:20 PM EST Office Visit [facility] [employer] [place] [facility] [address] [facility], [address] [place] [address] Moustapha Katz MD [address] [facility] [address] [place] [address] documented as of this encounter [...] documented as of this encounter Care Teams Figure Skater Relationship Specialty Start Date End Date Chris Medel MD [address] [place] [address] PCP - General 03/14/25 Ruma Hernández APRN [address] [place] [address] Referring Physician Gastroenterology 07/30/23 documented as of this encounter
[2025-06-27 08:32] LABS: Hematocrit 33.9 % (42.0-52.0); Hemoglobin 11.3 g/dL (14.1-18.0); Immature Granulocytes % 0.6 %; Mean Corpuscular HGB Conc 33.3 g/dL (31.8-35.4); Mean Corpuscular Hemoglobin 34.3 pg (27.0-31.2); Mean Corpuscular Volume 103.0 fl (80-94); Nucleated Red Blood Cells % 0 %; Platelet Count 94 K/mm3 (142-424); Red Blood Count 3.29 M/mm3 (4.60-6.20); Red Cell Distribution Width-SD 63.2 fL; White Blood Count 4.7 K/mm3 (4.8-10.8)
[2025-06-27 08:40] LABS: Activated Partial Thrombo Time 36.8 seconds (22.8-30.6); INR 1.68 (0.9-1.1); Prothrombin Time 17.9 seconds (10.1-12.5)
[2025-06-27 09:24] LABS: Albumin Level 2.3 g/dl (3.5-5.0); Chloride 109 mmol/L (98-107); Potassium 4.1 mmoL/L (3.5-5.1); Sodium 135 mmol/L (136-145)
[2025-06-27 09:27] LABS: Alanine Aminotransferase 28 U/L (12-78); Albumin/Globulin Ratio 0.5 (1.1-1.8); Alkaline Phosphatase 253 U/L (38-126); Anion Gap 3.1 mEq/L (5-15); Aspartate Amino Transferase 46 U/L (17-59); Bilirubin,Total 4.6 mg/dl (0.2-1.3); Blood Urea Nitrogen 9 mg/dl (9-20); Calcium 8.0 mg/dl (8.4-10.2); Carbon Dioxide 27 mmol/L (22.0-30.0); Creatinine,Serum 0.60 mg/dl (0.66-1.25); Estimated Glomerular Filt Rate 136 ml/min (>60); GFR (African American) 164 ML/MIN (>60); Globulin 4.3 g/dL (1.3-3.2); Glucose 106 mg/dl (74-100); Total Protein,Serum 6.6 g/dl (6.3-8.2)
== END 2025-06-27 23:59 | disposition home or self-care (01) ==
LOC: LAB 07:55
PROVIDERS: PCP Internal Medicine; Visit Provider Physician Assistant
DX: K72.90 Hepatic failure, unspecified without coma (principal)
CPT/HCPCS: 36415; 80053; 85025; 85610; 85730

== ENCOUNTER 2025-07-04 07:43 | Outpatient (CLI) | payer BC, SELFPAY ==
--- OUTSIDE RECORDS SUMMARY | 2023-08-27 08:34 | XMS_ITS | Encounter Summary ---
[facility] [address] [place] [address] Care Team Providers Care Efficiency Engineer Name Role Phone aKron Urban Jc DO Primary Care Provider +1 -[phone] Encounter Details Date Type Department Care Team (Late st Contact Info) Description 08/27/2023 8:34 AM EDT Hospital Encounter [facility] PULMONARY & CRITICAL CARE MEDICINE [address] [place] [phone] Social History Tobacco Use Types Packs/Day [...] on filedocumented in this encounter Care Teams Efficiency Engineer Relationship Specialty Start Date End Date Urban Brantley DO [address] [place] [address] [place] [address] PCP - General Internal Medicine 03/22/23 documented as of this encounter
--- OUTSIDE RECORDS SUMMARY | 2025-06-08 08:35 | XMS_ITS | Encounter Summary ---
Author Organization Healthcare Address [address] [place] [address] Care Team Providers Care Speech Clinician Name Role Phone Ruma Hernández MOLD YARD SUPERVISOR Unavailable [phone] Chris Medel MD Primary Care Provider [phone] Encounter Details Date Type Department Care Team (Latest Contact Info) Description 06/08/2025 8:35 AM EDT - 06/08/2025 11:59 PM EDT Hospital Encounter [facility] [address] [facility], [address] [place] [address] Other osteoporosis without current pathological [...] week 02/19/2025 How often do you attend [facility] or voodoo services? More than 4 times per year 02/19/2025 Do you belong to any clubs o r organizations such as anabaptism groups, unions, fraternal or athletic groups, or [...] in a snf (including now)? No 02/19/2025 Humiliation, Afraid, Rape, [...] any clubs o r organizations such as anabaptism groups, unions, fraternal or athletic groups, or [...] and heating? Not hard at all 06/15/2025 [facility] of Occupat ional Health - Occupational Stress [...] drink first t luisa in the morning (EYE-INSIDE POLISHER) to steady your nerves or to get rid of a hangover? 0 06/14/2025 CAGE Questionnaire Score 0 025 Utilities Answer Date Recorded In the past 12 months has th [employer], gas, oil, or water [employer] threatened to shut off services in your [...] Assessment Author 0 06/15/2025 9:39 AM EDT Flii Gutiérrez RN * Question Answer Date of [...] 11 09/13/2024 ergocalciferol (Vitamin D-2) 1.25 MG (64820 UT) capsule Take 1 capsule by mouth [...] Description 07/11/2025 9:00 AM EDT Clinical Support [facility] [place] [address] [place] [address] 07/11/2025 9:30 AM EDT Social Work [facility] [address] [place] [address] [place] [address] 07/11/2025 10:30 AM EDT Office Visit [facility] [address] [place] [address] Portia Maguire MD [address] [facility] [address] [place] [address] 10/03/2025 12:45 PM EST Office Visit Medical Office Building Urology [address] [facility], [address] [place] [address] Suhail Brock MD [address] [place] [address] 10/18/2025 4:20 PM EST Office Visit [facility] [address] [facility], [address] [place] [address] Moustapha Katz MD [address] [facility] [address] [place] [address] documented as of this encounter Procedures Procedure Name Priority Date/Time Associated Diagnosis Comments DEXA BONE DENSITY Routine 06/08/2025 8:3 5 AM EDT Other osteoporosis without current pathological fracture documented in this encounter Results * Dexa Bone Density (06/08/2025 8:35 AM EDT) Anatomical Region Laterality Modality L-spine Radiographic Liseth ging Narrative 06/17/2025 10:07 PM EDT [facility] - [facility] Clinic [address] [address], [place] [address] DXA Bone Densitometry Report: [06/08/2025] BMD test performed using the Updox[employer] DXA System (analysis version: 14.10) manufactured by [employer]. REFERRING PROVIDER: Dr. Moustapha Katz MD CLINICAL [...] documented as of this encounter Care Teams Speech Clinician Relationship Specialty Start Date End Date Chris Medel MD [address] [place] [address] PCP - General 03/14/25 Ruma Hernández APRN [address] [facility] [address] [place] [address] Referring Physician Gastroenterology 07/30/23 documented as of this encounter
--- OUTSIDE RECORDS SUMMARY | 2025-06-08 12:20 | XMS_ITS | Encounter Summary ---
Author Organization Healthcare Address [address] [place] [address] Care Team Providers Care Pca Name Role Phone Ruma Hernández HI LIFT OPERATOR Unavailable [phone] Chris Medel MD Primary Care Provider [phone] Reason for Referral * Consultation (Routine) - Authorized Specialty Diagnoses / Procedures Referred By Gianna reyes Referred To Contact Diagnoses Age-related osteoporosis without current pathological fracture Moustapha Katz MD [address] [place] [address] [place] [phone] Phone: tel: fax: Referral ID Status Reason Start Date Expiration Date V isits Requested Visits Authorized [id number] Authorized 06/08/2025 12/08/2026 1 1 Reason for Visit * Reason Comments Follow-up Encounter Details Date Type Department Care Team ([facility] st Contact Info) Description 06/08/2025 12:20 PM EDT Office Visit [facility] [place] [facility] [address] [place] [address] Moustapha Katz MD [address] [place] [address] Age-related osteoporosis without current pathological [...] often do you attend [facility] or rastafarian services? 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, MZ phenotype [id number]; was undergoing phlebotomy but this has been [...] XRT, renal stones, dental issues/scheduled dental procedures, oil heaterman corticosteroid; No thyroid/parathyroid/kidney; No RA/organ transplant/GI disease [...] intake of Ca and take vit D 7938-9135 units daily, he has also been prescribed [...] Expiration Date: 12/12/2026 [facility] [1] Calcium, Random, Urine Standing Status: Future Expected Date: 09/17/2025 Expiration Date: 12/12/2026 Release to patient in [facility]: Immediate [1] Creatinine, Random, Urine Standing Status: Future Expected Date: 09/17/2025 Expiration Date: 12/12/2026 [facility] Im[facility] [1] Osteocalcin by ECIA Standing Status: Future Expected Date: 09/17/2025 Expiration Date: 12/12/2026 [facility]: Im[facility] [1] C-Telopeptide Standing Status: Future Expected Date: 09/17/2025 Expiration Date: 12/12/2026 [facility]: Immediate [1] Renal Function Panel, Plasma Standing Status: Future Expected Date: 09/17/2025 Expiration Date: 12/12/2026 [facility]: Immediate [1] Bone Specific Alkaline Phosphatase Standing Status: Future Expected Date: 09/17/2025 Expiration Date: 12/12/2026 [facility]: Immediate Alkaline Phosphatase Standing Status: Future Expected Date: 09/17/2025 Expiration Date: 12/12/2026 [facility]: Immediate PTH Panel 1 Standing Status: Future Expected Date: 09/17/2025 Expiration Date: 12/12/2026 [facility]: Immediate Follow Up Bone Mineral Metabolism Labs [...] 07/11/2025 9:00 AM EDT Clinical Support [facility] [place] [address] [place] [address] 07/11/2025 9:[address] [facility] [place] [address] [place] [address] [place] [address] 07/11/2025 10:30 AM EDT Office Visit [facility] [address] [place] [address] Portia Maguire MD [address] [place] [address] 10/03/2025 12:45 PM EST Office Visit Medical Office Building Urology [address] [facility], [address] [place] [address] Suhail Brock MD [address] [place] [address] 10/18/2025 4:20 PM EST [facility] Visit [facility] [address] [facility], [address] [place] [address] Moustapha Katz MD [address] [place] [address] Scheduled Orders Name Type Priority [...] documented as of this encounter Care Teams Pca Relationship Specialty Start Date End Date Chris Medel MD [address] [place] [address] PCP - General 03/14/25 Ruma Hernández APRN [address] [facility] [address] [place] [address] Referring Physician Gastroenterology 07/30/23 documented as of this encounter
--- OUTSIDE RECORDS SUMMARY | 2025-06-13 07:05 | XMS_ITS | Encounter Summary ---
Author Organization Healthcare Address [address] [place] [address] Care Team Providers Care Claim Trainee Name Role Phone Ruma Hernández BARREL FINISHER Unavailable [phone] Chris Medel MD Primary Care Provider [phone] Encounter Details Date Type Department Care Team (Latest Contact Info) Description 06/13/2025 7:05 AM EDT - 06/13/2025 9:55 AM EDT [facility] En[facility] [address] [place] [address] Pre-liver transplant, listed Discharge Disposition: Home or [...] How often do you attend [facility] or faith services? More than 4 times per year 02/19/2025 Do you belong to any clubs o r organizations such as catholic groups, unions, [employer] or athletic groups, or school groups? Yes [...] in a chcf (including now)? No 02/19/2025 Humiliation, Afraid, Rape, [...] any clubs o r organizations such as catholic groups, unions, fraternal or athletic groups, [...] and heating? Not hard at all 06/15/2025 [facility] of Occupat ional Health - Occupational Stress [...] drink first t luisa in the morning (EYE-SECURITY COORDINATOR) to steady your nerves or to get rid of a hangover? 0 06/14/2025 CAGE Questionnaire Score 0 025 Utilities Answer Date Recorded In the past 12 months has th [employer], gas, oil, or water [employer] threatened to shut off services in your [...] 09/13/2024 5 ergocalciferol (Vitamin D-2) 1.25 MG (04578 UT) capsule Take 1 capsule by mouth [...] Upcoming Encounters Date Type Department Care Team ([facility] st Contact Info) Description 07/11/2025 9:00 AM EDT Clinical Support [facility] [place] [address] [facility] [address] [place] [phone] 07/11/2025 9:30 AM EDT Social Work [facility] [address] [facility] [address] [place] [address] [place] [address] 07/11/2025 10:30 AM EDT Office Visit [facility] [address] [facility] [address] [place] [address] Portia Maguire MD [address] [facility] [address] [place] [address] 10/03/2025 12:45 PM EST Office Visit Medical Office Building Urology [address] [facility], [address] [place] [address] Suhail Brock MD [address] [facility] [address] [place] [address] 10/18/2025 4:20 PM EST Office Visit [facility] [address] [facility], [address] [place] [address] Moustapha Katz MD [address] [facility] [address] [place] [address] documented as of this encounter [...] with the final edited report. Drafted by aLry Meza MD on 06/13/2025 10:31 AM Final [...] documented as of this encounter Care Teams Claim Trainee Relationship Specialty Start Date End Date Chris Medel MD [address] [place] [address] PCP - General 03/14/25 Ruma Hernández APRN [address] [place] [address] Referring Physician Gastroenterology 07/30/23 documented as of this encounter
--- OUTSIDE RECORDS SUMMARY | 2025-06-13 08:00 | XMS_ITS | Encounter Summary ---
Author Organization Healthcare Address [address] [place] [address] Care Team Providers Care Scientist Electronics Name Role Phone Ruma Hernández SKY CAP Unavailable [phone] Chris Medel MD Primary Care Provider [phone] Reason for Referral * Imaging (Urgent) - Closed Specialty Diagnoses / Procedures Referred By Gianna reyes Referred To Contact Radiology Diagnoses Alcoholic cirrhosis, unspecified whether ascites present (CMS/HCC) Procedures US Liver Screen Portia Maguire MD [address] [place] [address] Phone: tel: fax: Referral ID Status Reason Start Date Expiration Date Visits Re quested Visits Authorized [id number] Closed 06/13/2025 12/13/2026 1 1 Reason for Visit * Reason Comments Pre-Liver Txp Follow-up Encounter Details Date Type Department Care Team (Latest Contact Info) Description 06/13/2025 8:00 AM EDT Office Visit [facility] [address] [facility] [address] [place] [address] Portia Maguire MD [address] [place] [address] Alcoholic cirrhosis, unspecified whether ascites present (CMS/HCC) [...] often do you attend chur ch or confucianism services? More than 4 times per year 02/19/2025 Do you belong to any clubs o r organizations such as confucianism groups, unions, fraternal or athletic groups, or [...] any time in the past 12 m [facility], were you homeless or living in a group home (including now)? No 02/19/2025 Humiliation, Afraid, [...] week 06/15/2025 How often do you attend [facility] or confucianism services? More than 4 times per year 06/15/2025 Do you belong to any clubs o r organizations such as confucianism groups, unions, fraternal or athletic groups, or [...] and heating? Not hard at all 06/15/2025 [facility] [place] of Occupat ional Health - Occupational Stress [...] any time in the past 12 m [facility], were you homeless or living in a group home (including now)? No 06/15/2025 CAGE ASSESSMENT [...] drink first t luisa in the morning (EYE-HEDGE FUND MANAGER) to steady your nerves or to get [...] Description 07/11/2025 9:00 AM EDT Clinical Support [facility] [place] [address] [facility] [address] [place] [address] 07/11/2025 9:30 AM EDT Social Work [facility] [place] [address] [facility] [address] [place] [address] [place] [address] 07/11/2025 10:30 AM EDT Office Visit [facility] [place] [address] [place] [address] Portia Maguire MD [address] [place] [address] 10/03/2025 12:45 PM EST Office Visit Medical Office Building Urology [address] [facility], [address] [place] [address] Suhail Brock MD [address] [facility] [address] [place] [address] 10/18/2025 4:20 PM EST [facility] Visit [facility] [address] [facility], [address] [place] [address] Moustapha Katz MD [address] [facility] [address] [place] [address] documented as of this encounter [...] are based on Ultrasound LI-RADS version 2017. [email or web address]-Algorithm-Portrait -2017 .pdf CRITICAL RESULT: No. COMMUNICATION: Per [...] recommendations are based on UltrasoundLI-RADS version 2017. [email or web address]-AH-Algorithm-Portrait -2017 .pdf CRITICAL RESULT: No. COMMUNICATION: Per [...] documented as of this encounter Care Teams Scientist Electronics Relationship Specialty Start Date End Date Chris Medel MD [address] [place] [address] PCP - General 03/14/25 Ruma Hernández APRN [address] [place] [address] Referring Physician Gastroenterology 07/30/23 documented as of this encounter
--- OUTSIDE RECORDS SUMMARY | 2025-06-13 09:56 | XMS_ITS | Encounter Summary ---
Author Organization Healthcare Address [address] [place] [address] Care Team Providers Care Gun Fitter Name Role Phone Ruma Hernández BUS AND RAIL OPERATOR Unavailable [phone] Chris Medel MD Primary Care Provider [phone] Reason for Referral * Imaging (Urgent) - Closed Specialty Diagnoses / Procedures Referred By Gianna reyes Referred To Contact Radiology Diagnoses Alcoholic cirrhosis, unspecified whether ascites present (CMS/HCC) Procedures US Liver Screen Portia Maguire MD [address] [address] Phone: tel: fax: Referral ID Status Reason Start Date Expiration Date Visits Re quested Visits Authorized [id number] Closed 06/13/2025 12/13/2026 1 1 Reason for Visit * Imaging (Urgent) - Closed Specialty Diagnoses / Procedures Referred By Contru reyes Referred To Contact Radiology Diagnoses Alcoholic cirrhosis, unspecified whether ascites present (CMS/HCC) Procedures US Liver Screen Portia Maguire MD [address] [address] Phone: tel: fax:[phone] Referral ID Status Reason Start Date Expiration Date Visits Re quested Visits Authorized [id number] Closed 06/13/2025 12/13/2026 1 1 Encounter Details Date Type Department Care Team (Latest Contact Info) Description 06/13/2025 9:56 AM EDT - 06/13/2025 10:35 AM EDT Hospital Encounter [facility] Radiology [address] [place] [address] Alcoholic cirrhosis, unspecified whether ascites present (CMS/HCC) [...] any clubs o r organizations such as judaism groups, unions, fraternal or athletic groups, or [...] any time in the past 12 m [facility], were you homeless or living in a custodial (including now)? No 02/19/2025 Humiliation, Afraid, Rape, [...] week 06/15/2025 How often do you attend [facility] or spiritism services? More than 4 times per year 06/15/2025 Do you belong to any clubs o r organizations such as judaism groups, unions, fraternal or athletic groups, or [...] and heating? Not hard at all 06/15/2025 [facility] [place] of Occupat ional Health - Occupational Stress [...] any time in the past 12 m [facility], were you homeless or living in [...] drink first t luisa in the morning (EYE-WOODWORKING MACHINE OFFBEARER) to steady your nerves or to get [...] 11 09/13/2024 ergocalciferol (Vitamin D-2) 1.25 MG (39275 UT) capsule Take 1 capsule by mouth [...] EDT Clinical Support [facility] [address] [place] [address] 07/11/2025 9:30 AM EDT Social Work [facility] [address] [place] [address] [place] [address] 07/11/2025 10:30 AM EDT Office Visit [facility] [address] [place] [address] Portia Maguire MD [address] [place] [address] 10/03/2025 12:45 PM EST Office Visit Medical Office Building Urology [address] [facility], [address] [place] [address] Suhail Brock MD [address] [place] [address] 10/18/2025 4:20 PM EST Office Visit [employer] [facility] [address] [facility], [address] [place] [address] Moustapha Katz MD [address] [place] [address] documented as of this encounter [...] are based on Ultrasound LI-RADS version 2017. [email or web address] -2017 .pdf CRITICAL RESULT: No. COMMUNICATION: Per [...] recommendations are based on UltrasoundLI-RADS version 2017. [email or web address]-Algorithm-Portrait -2017 .pdf CRITICAL RESULT: No. COMMUNICATION: Per [...] documented as of this encounter Care Teams Gun Fitter Relationship Specialty Start Date End Date Chris Medel MD [address] [place] [address] PCP - General 03/14/25 Ruma Hernández APRN [address] [place] [address] [address] [place] [address] Referring Physician Gastroenterology 07/30/23 documented as of this encounter
--- OUTSIDE RECORDS SUMMARY | 2025-06-13 10:36 | XMS_ITS | Encounter Summary ---
Author Organization Healthcare Address [address] [place] [address] Care Team Providers Care Flight Attendant/Inflight Manager Name Role Phone Ruma Hernández INDUSTRIAL GAS SERVICER HELPER Unavailable [phone] Chris Medel MD Primary Care Provider [phone] Reason for Referral * Imaging (Routine) - Closed Specialty Diagnoses / Procedures Referred By Gianna t Referred To Contact Cardiology Diagnoses Pre-liver transplant, listed Procedures Echo, Adult Transthoracic (TTE) Complete Zarina Moore PA [address] [address] Phone: tel: fax: Referral ID Status Reason Start Date Expiration Date V isits Requested Visits Authorized [id number] Closed Perform Procedure 03/22/2025 09/21/2026 1 1 Reason for Visit * Imaging (Routine) - Closed Specialty Diagnoses / Procedures Referred By Contac t Referred To Contact Cardiology Diagnoses Pre-liver transplant, listed Procedures Echo, Adult Transthoracic (TTE) Complete Zarina Moore PA [address] [address] Phone: tel: fax: Referral ID Status Reason Start Date Expiration Date V isits Requested Visits Authorized [id number] Closed Perform Procedure 03/22/2025 09/21/2026 1 1 Encounter Details Date Type Department Care Team (Latest Contact Info) Description 06/13/2025 10:36 AM EDT - 06/13/2025 12:56 PM EDT Hospital Encounter Cardiac Imaging [address] [place] [address] Pre-liver transplant, listed Discharge Disposition: Home or [...] often do you attend chur ch or taoism services? More than 4 times per year 02/19/2025 Do you belong to any clubs o r organizations such as jain groups, unions, fraternal or athletic groups, or [...] in a penitentiary (including now)? No 02/19/2025 Humiliation, Afraid, Rape, [...] week 06/15/2025 How often do you attend [facility] or taoism services? More than 4 times per year 06/15/2025 Do you belong to any clubs o r organizations such as jain groups, unions, fraternal or athletic groups, or [...] and heating? Not hard at all 06/15/2025 [facility] of Occupat ional Health - Occupational Stress [...] living in a penitentiary (including now)? No 06/15/2025 CAGE ASSESSMENT Answer [...] drink first t luisa in the morning (EYE-COMMUNITY RELATIONS ASSISTANT) to steady your nerves or to get rid of a hangover? 0 06/14/2025 CAGE Questionnaire Score 0 025 Utilities Answer Date Recorded In the past 12 months has th e electric, gas, oil, or water [employer] threatened to shut off services in your [...] Sign Reading Time Taken Comments Blood Pressure 123/72 06/13/2025 10:56 AM EDT Pulse 80 06/13/2025 10:56 AM EDT Temperature - - Respiratory Rate - - Oxygen Saturation - - Inhaled Oxygen Concentration - - Weight - - Height - - Body Mass Index - - documented in this encounter Functional Status * [...] 09/13/2024 5 ergocalciferol (Vitamin D-2) 1.25 MG (43841 UT) capsule Take 1 capsule by mouth [...] Description 07/11/2025 9:00 AM EDT Clinical Support [facility] [place] [address] [place] [address] 07/11/2025 9:30 AM EDT Social Work [facility] [place] [address] [place] [address] [place] [address] 07/11/2025 10:30 AM EDT Office Visit [facility] [address] [place] [address] Portia Maguire MD [address] [place] [address] 10/03/2025 12:45 PM EST Office Visit Medical Office Building Urology [address], [address] [place] [address] Suhail Brock MD [address] [place] [address] 10/18/2025 4:20 PM EST Office Visit Professional [facility] Mineral Metabolism [address], [address] [place] [address] Moustapha Katz MD [address] [place] [address] documented as of this encounter Procedures Procedure Name Priority Date/Time Associated Diagnosis Comments ECHO, ADULT TRANSTHORACIC COMPLETE Routine 06/13/2025 11:34 AM EDT Pre-liver transplant, listed documented in this encounter Results * ECHO, ADULT TRANSTHORACIC COMPLETE (06/13/2025 11:34 AM EDT) BSA 2.11 m2 NII ISCV Height 167.6 NII ISCV Weight 103.0 NII ISCV TR Vmax 295.0 cm/s NII ISCV TR Max PG 35 mmHG NII ISCV MV E Vmax 110.8 cm/s NII ISCV MV A Vmax 104.7 cm/s NII ISCV MV E/A 1.1 cm/s NII ISCV LVIDd 46 mm NII ISCV IVSd 11 mm NII ISCV LVPWd 9 mm NII ISCV LV MASS(C)D 158 g NII ISCV [facility] CV ECHO LV MASS INDEX 75 g/m2 NII ISCV LV RWT 0.43 mm NII ISCV LVIDs 30 mm NII ISCV LA dimension 47 mm NII ISCV Ao Root Diam 38 mm NII ISCV LAV(MOD-4ch) 79 mL NII ISCV LV Lat e' Velocity 10.3 cm/s NII ISCV Lat E/e' 10.8 NII ISCV LV Sept e' [place]rem[place]ne 6.1 cm/s NII ISCV Sep E/e' 18.2 NII ISCV Avg E/e' 14.5 NII ISCV LAV(MOD-bp) Indexed 30 mL/m2 NII ISCV LAV(MOD-2ch) 46 mL NII ISCV RA MOD 4Ch 83 mL NII ISCV MONTY 39 mL/m2 NII ISCV RVSP 38 mmHg NII ISCV RAP systole 3 mmHg NII ISCV Anatomical Region Laterality Modality Echocardiography Narrative 06/13/2025 2:19 PM EDT Left Ventricle: The left ventricle is normal size. There is normal left ventricular myocardial thickness and mass. No left ventricular mass or thrombus is seen. The left ventricular systolic function is normal. The LVEF is visually estimated at 60 - 65%. The diastolic function is abnormal. There is grade II (moderate) diastolic dysfunction. The left ventricular filling pressure is elevated. The left ventricular wall motion is normal and no regional wall motion abnormalities are seen. Right Ventricle: The right ventricle is normal in size. The right ventricular systolic function is normal. The estimated right ventricular systolic pressure is >/= 38 mmHg. Left Atrium: The left atrial size is mildly increased with an indexed volume of 35-41 mL/m2. Intravenous injection of agitated saline demonstrate late appearance of moderate amount of bubbles in the left heart consistent with moderate degree of intrapulmonary shunting. Compared to the most recently available prior study, and allowing for differences in image quality and technique, the LV diastolic function is worse and the degree of transpulmonary shunt is increased. Left Ventricle The left ventricle is normal size. There is normal left ventricular myocardial thickness and mass. No left ventricular mass or thrombus is seen. The left ventricular systolic function is normal. The LVEF is visually estimated at 60 - 65%. The diastolic function is abnormal. There is grade II (moderate) diastolic dysfunction. The left ventricular filling pressure is elevated. The left ventricular wall motion is normal and no regional wall motion abnormalities are seen. Right Ventricle The right ventricle is normal in size. The right ventricular systolic function is normal. The estimated right ventricular systolic pressure is >/= 38 mmHg. Left Atrium The left atrial size is mildly increased with an indexed volume of 35-41 mL/m2. Intravenous injection of agitated saline demonstrate late appearance of moderate amount of bubbles in the left heart consistent with moderate degree of intrapulmonary shunting. Right Atrium The right atrial volume index is moderately increased (40-46mL/m2). IVC/SVC Based on the IVC size and respiratory variation, the estimated right atrial pressure is 3mmHg. Mitral Valve The mitral valve leaflets are normal in appearance with no evidence of mitral valve prolapse. There is trace mitral regurgitation. There is no mitral stenosis. Tricuspid Valve The tricuspid valve is normal in appearance. There is mild tricuspid regurgitation. There is no tricuspid stenosis. Aortic Valve The aortic valve appears to be trileaflet. There is no valvular regurgitation. There is no hemodynamically significant valvular aortic stenosis. Pulmonic Valve The pulmonic valve is normal in appearance. There is no pulmonic regurgitation. There is no pulmonic stenosis. Pericardium No pericardial effusion. Great Vessels The aortic root is normal in size. The main pulmonary artery is normal in size. Study Details A complete transthoracic echocardiogram using two-dimensional (2D), m-mode, color and spectral flow Doppler imaging was performed. Saline (bubble) contrast was used during the study. Height: 167.6 cm. Weight: 103.0 kg. BSA: 2.11 m2. Study Recommendation Compared to the most recently available prior study, and allowing for differences in image quality and technique, the LV diastolic function is worse and the degree of transpulmonary shunt is increased. Zarina INTERIANO CV ECHO PROCEDURES Final Result documented in this encounter [...] documented as of this encounter Care Teams Flight Attendant/Inflight Manager Relationship Specialty Start Date End Date Chris Medel MD [address] [place] [address] PCP - General 03/14/25 Ruma Hernández APRN [address] [facility] [address] [place] [address] Referring Physician Gastroenterology 07/30/23 documented as of this encounter
--- OUTSIDE RECORDS SUMMARY | 2025-06-13 12:57 | XMS_ITS | Encounter Summary ---
Author Organization Healthcare Address [address] [place] [address] Care Team Providers Care Margin Analyst Name Role Phone Ruma Hernández SUPERVISOR INSULATION Unavailable [phone] Chris Medel MD Primary Care Provider [phone] Reason for Referral * Imaging (Routine) - Closed Specialty Diagnoses / Procedures Referred By Gianna reyes Referred To Contact Radiology Diagnoses Pre-liver transplant, listed Procedures CT Angio Cardiac Coronary Arteries Zarina Moore PA [address] [address] Phone: tel: fax: Referral ID Status Reason Start Date Expiration Date Visits Re quested Visits Authorized [id number] Closed 03/22/2025 09/21/2026 1 1 Reason for Visit * Imaging (Routine) - Closed Specialty Diagnoses / Procedures Referred By Gianna reyes Referred To Contact Radiology Diagnoses Pre-liver transplant, listed Procedures CT Angio Cardiac Coronary Arteries Zarina Moore PA [address] [address] Phone: tel: fax: Referral ID Status Reason Start Date Expiration Date Visits Re quested Visits Authorized [id number] Closed 03/22/2025 09/21/2026 1 1 Encounter Details Date Type Department Care Team (Latest Contact Info) Description 06/13/2025 12:57 PM EDT - 06/13/2025 11:59 PM EDT Hospital Encounter [facility] [address] [place] [address] Chris Knott RN CH-TARIK Richard 5 T2 [...] How often do you attend [facility] or scientology services? More than 4 times per year 02/19/2025 Do you belong to any clubs o r organizations such as baptist groups, unions, fraternal or athletic groups, or [...] Recorded Patient Health Questionnaire-2 Score 0 06/08/2025 [facility] Health - Occupational [...] any time in the past 12 m [facility], were you homeless or living in a jail (including now)? No 02/19/2025 CAGE ASSESSMENT Answer [...] drink first t luisa in the morning (EYE-SOFTWARE RELEASE MANAGER) to steady your nerves or to get rid of a hangover? 0 06/14/2025 CAGE Questionnaire Score 0 025 Utilities Answer Date Recorded In the past 12 months has th [employer], gas, oil, or water [employer] threatened to shut off services in your [...] 09/13/2024 5 ergocalciferol (Vitamin D-2) 1.25 MG (32891 UT) capsule Take 1 capsule by mouth [...] from the original note were not included. [id number] Understanding coronary computed tomography angiography (CCTA) Coronary [...] site Last Reviewed Date: 2024 00:00:00 ?? 5229-0013 The [employer]. All rights reserved. This information is not intended as a substitute for professional medical care. Always follow your healthcare professional's instructions. documented in this encounter Plan of Treatment Upcoming Encounters Date Type Department Care Team (Late st Contact Info) Description 07/11/2025 9:00 AM EDT Clinical Support [facility] [address] [place] [address] 07/11/2025 9:30 AM EDT Social Work [facility] [address] [place] [address] [place] [address] 07/11/2025 10:30 AM EDT Office Visit [facility] [address] [place] [address] Portia Maguire MD [address] [place] [address] 10/03/2025 12:45 PM EST Office Visit Medical Office Building Urology [address], [address] [place] [address] Suhail Brock MD [address] [place] [address] 10/18/2025 4:20 PM EST Office Visit [employer] [facility] [address] [facility], [address] [place] [address] Moustapha Katz MD [address] [place] [address] documented as of this encounter [...] documented as of this encounter Care Teams Margin Analyst Relationship Specialty Start Date End Date Chris Medel MD [address] [place] [address] PCP - General 03/14/25 Ruma Hernández APRN [address] [place] [address] Referring Physician Gastroenterology 07/30/23 documented as of this encounter
--- OUTSIDE RECORDS SUMMARY | 2025-06-14 15:47 | XMS_ITS | Encounter Summary ---
Author Organization Healthcare Address [address] [place] [address] Care Team Providers Care Sales Representative Graphic Art Name Role Phone Ruma Hernández APPLIANCE REPAIR TECHNICIAN Unavailable [phone] Chris Medel MD Primary Care Provider [phone] Reason for Visit * Auth/Cert (Routine) Specialty Diagnoses / Procedures Referred By Contru t Referred To Contact Diagnoses Transplant Luis Angel Bee MD [address] [address] Phone: tel: fax: [facility] H Inpatient [address] [place] [address] Phone: tel: Referral ID Status Reason Start Date Expiration Date Visits Re quested Visits Authorized [id number] 1 1 Encounter Details Date Type Department Care Team (Late st Contact Info) Description 06/14/2025 3:47 PM EDT - 06/15/2025 6:14 PM EDT Hospital Encounter [facility] Inpatient [address] [place] [address] Luis Angel Bee MD [address] [address] Alcoholic cirrhosis, unspecified whether ascites [...] often do you attend chur ch or zoroastrianism services? More than 4 times per year 02/19/2025 Do you belong to any clubs o r organizations such as sikhism groups, unions, fraternal or athletic groups, or [...] [facility] or zoroastrianism services? More than 4 times per year 06/15/2025 Do you belong to any clubs o r organizations such as sikhism groups, unions, fraternal or athletic groups, or [...] drink first t luisa in the morning (EYE-FRONT ELEVATOR OPERATOR) to steady your nerves or to [...] Commonly known as: Coreg ergocalciferol 1.25 MG (32460 UT) capsule Take 1 capsule by mouth [...] Department Center 07/11/2025 9:00 AM TRANSPLANT LAB [facility] 07/11/2025 10:30 AM Portia Maguire MD [facility] 10/03/2025 12:45 PM Suhail Brock MD [facility] 10/18/2025 4:20 PM Moustapha Katz MD [...] 09/13/2024 5 ergocalciferol (Vitamin D-2) 1.25 MG (91405 UT) capsule Take 1 capsule by mouth [...] 65 yo M who was admitted to [facility] on 06/14 for possible liver transplant. [...] PCP name and Address: Chris Medel MD [address] [place] [address] / [place] [address] Referring provider name and address: No referring provider defined for this encounter. Chief Concern, Brief History of Present Illness, and Hospital Course David Serrano is a 65 yo M with history of alcohol-associated cirrhosis, renal Stones, GERD, Gout, hypocalcemia, and history of iron overload requiring therapeutic phlebotomy who was admitted to [facility] on 06/14 for possible liver transplant. [...] a day with meals. ergocalciferol 1.25 MG (89128 UT) capsule Commonly known as: Vitamin D-2 [...] Commonly known as: Coreg ergocalciferol 1.25 MG (52641 UT) capsule Take 1 capsule by mouth [...] Department Center 07/11/2025 9:00 AM TRANSPLANT LAB [facility] 07/11/2025 10:30 AM Portia Maguire MD [facility] 10/03/2025 12:45 PM Suhail Brock MD [facility] 10/18/2025 4:20 PM Moustapha Katz MD [...] prior to discharge. Luis Angel Bee M.D. ad taker Department of Surgery / Transplantation [facility] [email or web address] Transplant Center, [address] [place] [address] Dictation software disclaimer: Parts of this note was generated using voice recognition equipment and technology provided by the [facility]. Despite a reasonable effort at proofreading, it is subject to caterers helper related errors, omissions, spelling errors, changes in [...] since 06/13 ergocalciferol (Vitamin D-2) 1.25 MG (95099 UT) capsule 06/08/2025 No Yes Sig: Take [...] daily. Facility-Administered Medications: None Patients Preferred Pharmacy* [facility] [address] [facility] [address] [facility] [address] [place] [address] *May default to [facility] if patient is enrolled to [id number] Service. Pharmacy Benefits DAVID SERRANO CDH-N [id number] ([facility]) Covered: <b>Retail</b>, <b>Mail Order</b>, Specialty Unknown: Long- Term Care BIN: [id number] : 1960 Group ID: [id number] PCN: [id number] Legal sex: M Group name: [id number] [employer]TR[employer] OF Address: [address] [place] [id number] Additional Comments: PERIANESTHESIA RN list has been updated to align with information found in ss, from home pharmacy, and bedside interview with pt. No medications were added or removed from list. Calcitriol is a new medication which has not been started this week. Fill history supports compliance. [facility] due to low bp, last dose was on 06/13/25. Pt will need thermometerpost txp. Pt is enrolled in M2B, allergies verified, and pt enrolled in M2b. Follow up as needed. Interaction Documentation [x] I have reviewed the medication information [facility] I have reviewed/called the patients home pharmacy to compare discrepancies discovered from review of surescripts, pts chart, documented disease states, and relative information. Notes: [x] Pt allergies and reactions documented within [facility] system have been reviewed, or updated, appropriately after discussion with patient. Notes: Colette Zamudio CPhT 06/15/2025 12:20 PM I agree with the information documented above. All student/digital marketing intern notes from collection of information has been reviewed. Medications match pt indications and PMHx. * Progress Notes - Dear, Lisa Conley RN - 06/15/2025 9:03 AM EDT Case Management Adult Initial Progress Note David Serrano 65 y.o. male CSN: [id number] Admission: 06/14/2025 3:47 PM Primary Problem: Alcoholic cirrhosis, unspecified whether ascites present (CMS/HCC) Coding Validator reviewed chart and spoke with patient to complete this Initial Case Management Assessment. PCP: Chris Medel MD Emergency Contact: Extended Emergency Contact Information Primary Emergency Contact: Stacy Serrano Address: [address] [place] [address] [address] [address] [place] Relation: Spouse Preferred language: Greenlandic Fabric Worker needed? No Secondary Emergency Contact: Lan Serrano Mobile Relation: Son Preferred language: Greenlandic Fabric Worker needed? No Insurance: Primary Visit Coverage Payer Plan Sponsor Code Group Number Group Name NANCY CRUZ [facility] [id number] Primary Visit Coverage Subscriber Subscriber ID Subscriber Name Subscriber N Subscriber Address [id number] DAVID SERRANO [id number] [place] [address] [address] [address] Patient information: Floresita Banegas - [phone] = Secondary Emergency Contact. Pt admitted for [...] flight of steps. [address] [place] [address] Current DME: No DME in use. Income Information: Greater than 115 K per month. 2 in household. Housing Circumstances-Z Codes: Private home with 1 SCOTT. Single story home. [place] water. Patient Referred to: Pt would agree to [facility] referral if recommended. Anticipated Discharge Date: TBD Patient's Discharge Goal: HWA Assistance Available at Discharge: = primary care Secondary care givers = friend/ neighbors Discharge Transport: Follow Up Transport: Home Health / Home Infusion / Outpatient Dialysis Services: No history of home health. No history of home infusion. No history of dialysis. Living Will/Advance Directive/Power of Toll Test Worker /Guardian: Unable to assess: No Have you reviewed your Advance Directive and is it valid for this stay?: Yes Advance Directive: Patient has advance directive, copy not in chart Advance Directive not in Chart: Copy requested from family (pt states they will call addiction nurse) Information Provided on Healthcare Directives: Yes Pre-existing [...] Review Outcome: Ongoing, Progressing Flowsheets (Taken 06/14/2025 0162) Progress: no change Outcome Evaluation: Awaiting possible [...] from the original note were not included. [facility] Department of Surgery Division of Abdominal Transplant Surgery History & Physical/Consult Note Subjective History of Present Illness: Chief Complaint: presenting for liver transplant David Serrano is a 65 y.o. male with PMHx significant for alcohol- associated cirrhosis, history of Renal Stones, GERD, Gout, hypocalcemia, and history of iron overload requiring therapeutic phlebotomy. He presents to [facility] on 06/14/2025 for liver transplantation. No recent [...] Maguire MD ergocalciferol (Vitamin D-2) 1.25 MG (63652 UT) capsule Take 1 capsule by mouth [...] are based on Ultrasound LI-RADS version 2017. [email or web address]/-/[email or web address] XR CHEST 2 VIEWS (06/13) IMPRESSION: No acute focal airspace disease. Radiographic Interpretation: I have reviewed the imaging above and agree with the radiologist interpretation. Assessment/Plan Assessment & Plan: David Serrano is a 65 y.o. male with PMHx significant for alcohol- associated cirrhosis, history of Renal Stones, GERD, Gout, hypocalcemia, and history of iron overload requiring therapeutic phlebotomy. He presents to [facility] on 06/14/2025 for liver transplantation. He denies any changes to his health since last seen. Consent was obtained on 06/14/25. Plan: - Admit to [facility] - SCDs - NPO Assessment & Plan [...] prior to discharge. Luis Angel Bee M.D. ad taker Department of Surgery / Transplantation [facility] [email or web address], [address] [address], [place] [address] Dictation software disclaimer: Parts of this note was generated using voice recognition equipment and technology provided by the [facility]. Despite a reasonable effort at proofreading, it is subject to caterers helper related errors, omissions, spelling errors, changes in dictated words, and words inserted which may have been misinterpreted by voice dictation software. Meaning of words may require interpretation in the appropriate context of the sentence and clinical situation. documented in this encounter Plan of Treatment Upcoming Encounters Date Type Department Care Team (Late st Contact Info) Description 07/11/2025 9:00 AM EDT Clinical Support [facility] [place] [address] [place] [address] 07/11/2025 9:30 AM EDT Social Work [facility] [place] [address] [place] [address] [place] [address] 07/11/2025 10:30 AM EDT Office Visit [facility] [place] [address] [place] [address] Portia Maugire MD [address] [facility] [address] [place] [address] 10/03/2025 12:45 PM EST Office Visit Medical Office Building Urology [address], [address] [place] [address] Suhail Brock MD [address] [place] [address] 10/18/2025 4:20 PM EST Office Visit [facility] Metabolism [address], [address] [place] [address] Moustapha Katz MD [address] [place] [address] Pending Results Name Type Priority [...] ECG Atrial Rate 65 BPM MUSE ECG PA Interval 162 ms MUSE ECG QRSD Interval 86 ms MUSE ECG QT Interval 446 ms MUSE ECG QTC Interval 463 ms MUSE ECG P Argos 4 degrees MUSE ECG R Arg[place] 58 degrees MUSE ECG T Wave Argos 22 degrees MUSE ECG Diagnosis Normal sinus rhythm MUSE ECG Diagnosis Cannot rule out Anterior infarct , age undetermined MUSE ECG Diagnosis Abnormal ECG MUSE ECG Diagnosis MUSE ECG Diagnosis Confirmed by Max Gregorio ([id number]) on 06/15/2025 3:47:28 PM MUSE ECG 06/15/2025 10:3 5 AM EDT 06/15/2025 3:47 PM EDT Mary INTERIANO ECG ORDERABLES Final Result Performing Organization Address City/[facility]/ZIP Co de Phone Number MUSE ECG * SARS CoV-2/COVID-19 by PCR - Rapid (06/14/2025 6:47 PM EDT) SARS CoV-2/COVID-1 9 RNA PCR Result Not Detected Not Detected 06/14/2025 8:35 PM EDT [facility] Swab Nasopharyngeal structure / Unknown Non-blood Collection / Unknown 06/14/2025 6:47 PM EDT 06/14/2025 7:49 PM EDT Narrative [facility] - 06/14/2025 8:35 PM [...] MICROBIOLOGY - GENERA L ORDERABLES Final Result [facility] [address] [place] [address] * Leticia auris Surveillance by PCR (06/14/2025 6:47 PM EDT) Leticia auris PCR Result Not Detected Not Detected 06/18/2025 5:43 AM EDT [facility] Swab (Axilla and Groin) Non-blood Collection / Unknown 06/14/2025 6:47 PM EDT 06/14/2025 7:49 PM EDT Narrative [facility] - 06/18/2025 5:43 AM EDT This PCR assay was developed and its performance characteristics determined by [facility] Clinical Laboratories as appropriate for clinical purposes. This assay has not been cleared or approved by the FDA, but is performed in a CLIA regulated laboratory that is qualified to perform high-complexity testing. us Luis Angel Bee MD LAB MICROBIOLOGY - [facility] L ORDERABLES Final Result [facility] [address] [place] [address] * Cytomegalovirus Antibody IgG (06/14/2025 6:31 PM EDT) CMV ANTIBODY IGG <0.20 <=0.59 U/mL 06/16/2025 9:07 PM EDT [facility] Blood Venous blood specimen / Unknown Venipuncture / Unknown 06/14/2025 6:31 PM EDT 06/14/2025 7:05 PM EDT Narrative [facility] - 06/16/2025 9:07 PM EDT [...] laboratory at the same time. Performed By: [facility] [address] [place] [id number] Rail Loader: Balwinder Wadsworth MD, PhD CLIA Number: [id number] us Luis Angel Bee MD LAB BLOOD ORDERABLES Nadia l Result [facility] ([place]) [address] [place] [address] * Light Green Top (06/14/2025 6:31 PM EDT) Extra Hold for add-ons 06/14/2025 11:01 PM EDT [facility] Comment:Auto resulted. Blood Venous blood specimen / Unknown 06/14/2025 6:31 PM EDT 06/14/2025 8:12 PM EDT us Luis Angel Bee MD LAB BLOOD ORDERABLES Nadia l Result [facility] [address] [place] [address] * Red Top (06/14/2025 6:31 PM EDT) Extra Hold for add-ons 06/14/2025 11:01 PM EDT [facility] Comment:Auto resulted. Blood Venous blood specimen / Unknown 06/14/2025 6:31 PM EDT 06/14/2025 8:12 PM EDT us Luis Angel Bee MD LAB BLOOD ORDERABLES Nadia l Result [facility] [address] [place] [address] * HIV 1 & 2 Antibody/Antigen Screen (06/14/2025 6:31 PM EDT) HIV 1 & 2 Antibody/Antigen Screen Non Reactive Non Reactive 06/14/2025 7:45 PM EDT [facility] Comment:Screening for HIV 1 & 2 antibodies, and P24 antigen is NONREACTIVE. No confirmatory testing is required. Blood Venous blood specimen / Unknown Venipuncture / Unknown 06/14/2025 6:31 PM EDT 06/14/2025 7:05 PM EDT Luis Angel Bee MD LAB BLOOD ORDERABLES Nadia l Result [facility] [address] [place] [address] * Hepatitis C Virus (HCV) Quantitative PCR (06/14/2025 6:31 PM EDT) Pathologist [facility] Hepatitis C Virus (HCV) Quantitative Interpretation Not Detected Not Detected. 06/18/2025 10:15 PM EDT [facility] Blood Venous blood specimen / Unknown Venipuncture / Unknown 06/14/2025 6:31 PM EDT 06/15/2025 8:51 AM EDT Narrative [facility] - 06/18/2025 10:15 PM EDT The [...] MD LAB BLOOD [place] [address] * Hepatitis C Antibody (06/14/2025 6:31 PM EDT) Pathologist [facility] Hepatitis C Antibody Negative Negative 06/14/2025 7:45 PM EDT [facility] Blood Venous blood specimen / Unknown Venipuncture / Unknown 06/14/2025 6:31 PM EDT 06/14/2025 7:05 PM EDT Result Neto Bee MD LAB BLOOD ORDERABLES Nadia l Result Performing Organization Address [facility] Co de Phone Number [facility] [address] [place] [address] * Hepatitis B Surface Antigen (06/14/2025 6:31 PM EDT) Hepatitis B Surf Antigen Negative Negative 06/14/2025 8:18 PM EDT [facility] Blood Venous blood specimen / Unknown Venipuncture / Unknown 06/14/2025 6:31 PM EDT 06/14/2025 7:05 PM EDT Result Neto Bee MD LAB BLOOD ORDERABLES Nadia l Result Performing Organization Address [facility] de Phone Number [facility] [address] [place] [address] * (ABNORMAL) Hepatitis B Surface Antibody, Quantitative (06/14/2025 6:31 PM EDT) Pathologist [facility] Hepatitis B Surface Antibody, Quantitative 34.47(H) NonReacti ve: <8, Grayzone: 8 - <12, Reactive: >= 12 mIU/mL 06/14/2025 8:18 PM EDT [facility] Comment: Reactive. Individual is considered immune to HBV infection. Blood Venous blood specimen / Unknown Venipuncture / Unknown 06/14/2025 6:31 PM EDT 06/14/2025 7:05 PM EDT Result Neto Bee MD LAB BLOOD ORDERABLES Nadia l Result Performing Organization Address [facility] Co de Phone Number [facility] [address] [place] [address] * Hepatitis B Core Total Antibody IgG,IgM (06/14/2025 6:31 PM EDT) Hepatitis B Core Total Antibody IgG,IgM Negative Negative 06/14/2025 8:18 PM EDT [facility] Blood Venous blood specimen / Unknown Venipuncture / Unknown 06/14/2025 6:31 PM EDT 06/14/2025 7:05 PM EDT Result [facility] us Luis Angel Bee MD LAB BLOOD ORDERABLES Nadia l Result Performing Organization Address [facility] Co de Phone Number [facility] [address] [place] [address] * (ABNORMAL) Vitamin D 25 Hydroxy (06/14/2025 6:31 PM EDT) Vitamin D 25 Hydroxy 10.8(L) 20.0 - 80.0 ng/mL 06/14/2025 8:19 PM EDT [facility] Blood Venous blood specimen / Unknown Venipuncture / Unknown 06/14/2025 6:31 PM EDT 06/14/2025 7:05 PM EDT Narrative [facility] - 06/14/2025 8:19 PM EDT Testing performed on Eyeota, standardized against NIST SRM 2972. When testing [...] ORDERABLES Nadia l Result Performing Organization Address [facility] Co de Phone Number [facility] [address] [place] [address] * (ABNORMAL) CBC and Differential (06/14/2025 6:31 PM EDT) WBC Count 7.95 3.70 - 10.30 10*3/uL LAB HEMATOLOGY METHOD 06/14/2025 7:24 PM EDT [facility] RBC Count 2.90(L) 4.60 - 6.10 10*6/uL LAB HEMATOLOGY METHOD 06/14/2025 7:24 PM EDT [facility] HGB 10.1(L) 13.7 - 17.5 g/dL LAB HEMATOLOGY METHOD 06/14/2025 7:24 PM EDT [facility] HCT 29.7(L) 40.0 - 51.0 % LAB HEMATOLOGY METHOD 06/14/2025 7:24 PM EDT [facility] Platelet Count 56(L) 155 - 369 10*3/uL LAB HEMATOLOGY METHOD 06/14/2025 7:24 PM EDT [facility] MCV 102(H) 79 - 98 fL LAB HEMATOLOGY METHOD 06/14/2025 7:24 PM EDT [facility] MCH 34.8(H) 26.0 - 32.0 pg LAB HEMATOLOGY METHOD 06/14/2025 7:24 PM EDT [facility] MCHC 34.0 30.7 - 35.5 g/dL LAB HEMATOLOGY METHOD 06/14/2025 7:24 PM EDT [facility] RDW 16.9(H) 11.5 - 14.5 % LAB HEMATOLOGY METHOD 06/14/2025 7:24 PM EDT [facility] MPV 11.5 8.8 - 12.5 fL LAB HEMATOLOGY METHOD 06/14/2025 7:24 PM EDT [facility] nRBC 0.0 <=0.0 per 100 WBCs LAB HEMATOLOGY METHOD 06/14/2025 7:24 PM EDT [facility] Differential Type Automated LAB HEMATOLOGY METHOD 06/14/2025 7:24 PM EDT [facility] Neutrophils % 56 % LAB HEMATOLOGY METHOD 06/14/2025 7:24 PM EDT [facility] Lymphocytes % 25 % LAB HEMATOLOGY METHOD 06/14/2025 7:24 PM EDT [facility] Monocytes % 13 % LAB HEMATOLOGY METHOD 06/14/2025 7:24 PM EDT [facility] Eosinophils % 4 % LAB HEMATOLOGY METHOD 06/14/2025 7:24 PM EDT [facility] Basophils % 1 % LAB HEMATOLOGY METHOD 06/14/2025 7:24 PM EDT [facility] Immature Granulocytes % 1 % LAB HEMATOLOGY METHOD 06/14/2025 7:24 PM EDT [facility] Neutrophils Absolute 4.56 1.60 - 6.10 10*3/uL LAB HEMATOLOGY METHOD 06/14/2025 7:24 PM EDT [facility] Lymphocytes Absolute 1.97 1.20 - 3.90 10*3/uL LAB HEMATOLOGY METHOD 06/14/2025 7:24 PM EDT [facility] Monocytes Absolute 1.03(H) 0.30 - 0.90 10*3/uL LAB HEMATOLOGY METHOD 06/14/2025 7:24 PM EDT [facility] Eosinophils Absolute 0.31 0.00 - 0.50 10*3/uL LAB HEMATOLOGY METHOD 06/14/2025 7:24 PM EDT [facility] Basophils Absolute 0.04 0.00 - 0.10 10*3/uL LAB HEMATOLOGY METHOD 06/14/2025 7:24 PM EDT [facility] Immature Granulocytes Absolute 0.04 0.00 - 0.06 10*3/uL LAB HEMATOLOGY METHOD 06/14/2025 7:24 PM EDT [facility] Blood Venous blood specimen / Unknown Venipuncture / Unknown 06/14/2025 6:31 PM EDT 06/14/2025 7:06 PM EDT Narrative [facility] - 06/14/2025 7:24 PM EDT Therapeutic decision making should be based on absolute values, rather than percentages. us Luis Angel Bee MD LAB BLOOD ORDERABLES Nadia l Result [facility] [address] [place] [address] * Type and screen (06/14/2025 6:31 PM [...] ORDER MARYA Final Result Performing Organization Address City/[facility]/ZIP Co de Phone Number BLOOD BANK [address] * (ABNORMAL) Protime-INR (06/14/2025 6:31 PM EDT) Prothrombin Time 25.9(H) 12.0 - 14.3 sec LAB COAGULATION METHOD 06/14/2025 7:23 PM EDT [facility] INR 2.3(H) 0.9 - 1.1 LAB COAGULATION METHOD 06/14/2025 7:23 PM EDT [facility] Blood Venous blood specimen / Unknown Venipuncture / Unknown 06/14/2025 6:31 PM EDT 06/14/2025 7:05 PM EDT Narrative [facility] - 06/14/2025 7:23 PM EDT OPTIMAL INR RANGES FOR PATIENT ON ORAL ANTICOAGULANT THERAPY Prevention of venous thromboembolism INR 2.0 to 3.0 In patients with heart disease: Atrial fibrillation INR 2.0 to 3.0 Valvular heart disease INR 2.0 to 3.0 Tissue heart valves INR 2.0 to 3.0 Mechanical prosthetic valves INR 2.5 to 3.5 Prevention of recurrent ID INR 2.5 to 3.5 us Luis Angel Bee MD LAB BLOOD ORDERABLES Nadia l Result Performing Organization Address [facility] Co de Phone Number [facility] [address] [place] [address] * (ABNORMAL) APTT (06/14/2025 6:31 PM EDT) aPTT 47(H) 25 - 35 sec LAB COAGULATION METHOD 06/14/2025 7:23 PM EDT [facility] Blood Venous blood specimen / Unknown Venipuncture / Unknown 06/14/2025 6:31 PM EDT 06/14/2025 7:05 PM EDT us Luis Angel Bee MD LAB BLOOD ORDERABLES Nadia l Result [facility] [address] [place] [address] * (ABNORMAL) Comprehensive metabolic panel (06/14/2025 6:31 PM EDT) Glucose, Plasma 86 74 - 99 mg/dL 06/14/2025 7:35 PM EDT [facility] BUN, Plasma 21 8 - 23 mg/dL 06/14/2025 7:35 PM EDT [facility] Creatinine, Plasma 1.28(H) 0.70 - 1.20 mg/dL 06/14/2025 7:35 PM EDT [facility] BUN/Creatinine Ratio 16 06/14/2025 7:35 PM EDT [facility] Sodium, Plasma 135(L) 136 - 145 mmol/L 06/14/2025 7:35 PM EDT [facility] Potassium, Plasma 3.9 3.6 - 4.9 mmol/L 06/14/2025 7:35 PM EDT [facility] Chloride, Plasma 104 97 - 107 mmol/L 06/14/2025 7:35 PM EDT [facility] CO2, Plasma 24 22 - 29 mmol/L 06/14/2025 7:35 PM EDT [facility] Anion Gap 7 6 - 16 mmol/L 06/14/2025 7:35 PM EDT [facility] Total Calcium, Plasma 7.6(L) 8.9 - 10.2 mg/dL 06/14/2025 7:35 PM EDT [facility] Total Protein 5.6(L) 6.3 - 7.9 g/dL 06/14/2025 7:35 PM EDT [facility] Albumin, Plasma 1.8(L) 3.5 - 5.2 g/dL 06/14/2025 7:35 PM EDT [facility] AST, Plasma 38 10 - 50 U/L 06/14/2025 7:35 PM EDT [facility] ALT, Plasma 31 10 - 50 U/L 06/14/2025 7:35 PM EDT [facility] Alkaline Phosphatase, Plasma 178(H) 40 - 115 U/L 06/14/2025 7:35 PM EDT [facility] Total Bilirubin, Plasma 6.6(H) 0.2 - 1.1 mg/dL 06/14/2025 7:35 PM EDT [facility] eGFRcr 62.5 mL/min/1.7 3m*2 06/14/2025 7:35 PM EDT [facility] Comment:Reported eGFRcr in m L/min/1.73m2 is based the CKD-EPI 2020 equation that does not use a race coefficient. Blood Venous blood specimen / Unknown Venipuncture / Unknown 06/14/2025 6:31 PM EDT 06/14/2025 7:05 PM EDT us Luis Angel Bee MD LAB BLOOD ORDERABLES Nadia crockett Result [facility] [address] [place] [address] documented in this encounter Visit Diagnoses Diagnosis [...] as of this encounter Care Teams Sales Representative Graphic Art Relationship Specialty Start Date End Date Chris Medel MD [address] [place] [address] PCP - General 03/14/25 Ruma Hernández APRN [address] [address] Referring Physician Gastroenterology 07/30/23 documented as of this encounter
--- OUTSIDE RECORDS SUMMARY | 2025-06-15 23:59 | XMS_ITS | Encounter Summary ---
Author Organization [facility] Address [address] [place] [address] Care Team Providers Care Senior Analyst Market Intelligence Name Role Phone Ruma Hernández HEALTH AND PHYSICAL EDUCATION TEACHER Unavailable [phone] Chris Medel MD Primary Care Provider [phone] Encounter Details Date Type Department Care Team (Late st Contact Info) Description 06/15/2025 11:59 PM EDT Anesthesia Event PAV A OPERATING ROOM [address] [place] [address] Mary Castellon, LAISHA [address] [facility] [address] [place] [address] Fanta Morrissey APRN [address] [place] [address] Anesthesia Record Procedure Summary Procedure Name Responsible [...] often do you attend [facility] or confucianist services? More than 4 times per year 02/19/2025 Do you belong to any clubs o r organizations such as hinduism groups, unions, fraternal or athletic groups, or [...] in a fdc (including now)? No 02/19/2025 Humiliation, Afraid, Rape, [...] How often do you attend chur or confucianist services? More than 4 times per year 06/15/2025 Do you belong to any clubs o r organizations such as hinduism groups, unions, fraternal or athletic groups, or [...] and heating? Not hard at all 06/15/2025 [facility] of Occupat ional [...] drink first t luisa in the morning (EYE-AUTOMOTIVE TECHNICIAN) to steady your nerves or to [...] Notes * Anesthesia Preprocedure Evaluation - Mary Casetllon PA - 06/15/2025 10:05 AM EDT Procedure Information Date/Time: 06/15/251514 Procedure: TRANSPLANT, LIVER Location: PAV-A OR Rhys / [facility] OR Surgeons: Luis Angel Bee MD [facility] David Pop is a 65 y.o. male [...] Description 07/11/2025 9:00 AM EDT Clinical Support [facility] [address] [place] [address] 07/11/2025 9:30 AM EDT Social Work [facility] [address] [place] [address] [place] [address] 07/11/2025 10:30 AM EDT Office Visit [facility] [address] [place] [address] Portia Maguire MD [address] [place] [address] 10/03/2025 12:45 PM EST Office Visit Medical Office Building Urology [address], [address] [place] [address] Suhail Brock MD [address] [place] [address] 10/18/2025 4:20 PM EST Office Visit [facility] [address] [facility], [address] [place] [address] Moustapha Katz MD [address] [facility] [address] [place] [address] documented as of this encounter [...] as of this encounter Care Teams Senior Analyst Market Intelligence Relationship Specialty Start Date End Date Chris Medel MD [address] [place] [address] PCP - General 03/14/25 Ruma Hernández APRN [address] [facility] [address] [place] [address] Referring Physician Gastroenterology 07/30/23 documented as of this encounter
--- OUTSIDE RECORDS SUMMARY | 2025-07-04 07:45 | XMS_ITS | Encounter Summary ---
Author Organization Healthcare Address [address] [place] [address] Care Team Providers Care Packager Head Name Role Phone Ruma Hernández PARACHUTE PANEL JOINER Unavailable [phone] Chris Medel MD Primary Care Provider [phone] Encounter Details Date Type Department Care Team (Late st Contact Info) Description 05/01/2025 Results Follow-Up [facility] [address] [place] [address] Meaghan Le, RN [facility] LIVER [id number] [address] [place] [address] Social History Tobacco Use Types [...] do you attend [facility] or christianity services? More than 4 times per year 02/19/2025 Do you belong to any clubs o r organizations such as voodoo groups, unions, Sharypicternal or athletic groups, or school groups? Yes [...] a senior living (including now)? No 02/19/2025 Humiliation, Afraid, Rape, [...] and heating? Not hard at all 06/15/2025 [facility] ional Health - Occupational Stress [...] in a senior living (including now)? No 06/15/2025 CAGE ASSESSMENT Answer [...] drink first t luisa in the morning (EYE-MICROFILM MOUNTER) to steady your nerves or to get rid of a hangover? 0 06/14/2025 CAGE Questionnaire Score 0 025 Utilities Answer Date Recorded In the past 12 months has th [employer], gas, oil, or water [employer] threatened to shut off services in [...] EDT Dear, Lisa F, R N * Over the past 2 [...] Description 07/11/2025 9:00 AM EDT Clinical Support [facility] [address] [place] [address] 07/11/2025 9:30 AM EDT Social Work [facility] [address] [place] [address] [place] [address] 07/11/2025 10:30 AM EDT Office Visit [facility] [address] [place] [address] Portia Maguire MD [address] [place] [address] 10/03/2025 12:45 PM EST Office Visit Medical Office Building Urology [address] [facility], [address] [place] [address] Suhail Brock MD [address] [place] [address] 10/18/2025 4:20 PM EST Office Visit [facility] [address] [facility], [address] [place] [address] Moustapha Katz MD [address] [place] [address] documented as of this [...] documented as of this encounter Care Teams Packager Head Relationship Specialty Start Date End Date Chris Medel MD [address] [place] [address] PCP - General 03/14/25 Ruma Hernández APRN [address] [facility] 202 [place] [address] Referring Physician Gastroenterology 07/30/23 documented as of this encounter
--- OUTSIDE RECORDS SUMMARY | 2025-07-04 07:45 | XMS_ITS | Encounter Summary ---
Author Organization Healthcare Address [address] [place] [address] Care Team Providers Care Accounts Payable Supervisor Name Role Phone Ruma Hernández FILM SPOOLER Unavailable [phone] Chris Medel MD Primary Care Provider [phone] Encounter Details Date Type Department Care Team (Late st Contact Info) Description 06/14/2025 Results Follow-Up [facility] [address] [place] [address] Meaghan Le, RN [facility] LIVER [id number] [address] [place] [address] Social History Tobacco Use Types [...] How often do you attend [facility] or muslim services? More than 4 times [...] in a alf (including now)? No 02/19/2025 Humiliation, Afraid, Rape, [...] often do you attend chur ch or muslim services? More than 4 times [...] and heating? Not hard at all 06/15/2025 [facility] [place] of Occupat ional Health - Occupational Stress [...] living in a alf (including now)? No 06/15/2025 CAGE ASSESSMENT Answer [...] drink first t luisa in the morning (EYE-LATIN AMERICAN STUDIES PROFESSOR) to steady your nerves or to get rid of a hangover? 0 06/14/2025 CAGE Questionnaire Score 0 025 Utilities Answer Date Recorded In the past 12 months has th [employer], gas, oil, or water [email or web address] threatened to shut off services in your [...] Encounter Note - Portia Maguire MD - 07/03/2025 1:38 PM EDT ECHO results LV diastolic function is worse and the degree of transpulmonary shunt is increased. EF continues to be stable RVSP is >/= 38 I dont think this will hold him from getting transplanted, but let's discuss in committee Thanks * Result Encounter Note - Meaghan Le RN - 06/14/2025 10:11 AM EDT Yearly echo documented in this encounter Plan of Treatment Upcoming Encounters Date Type Department Care Team (Late st Contact Info) Description 07/11/2025 9:00 AM EDT Clinical Support [facility] [address] [place] [address] 07/11/2025 9:30 AM EDT Social Work [facility] [place] [address] [place] [address] [place] [address] 07/11/2025 10:30 AM EDT Office Visit [facility] [place] [address] [place] [address] Portia Maguire MD [address] [facility] [address] [place] [address] 10/03/2025 12:45 PM EST Office Visit Medical Office Building Urology [address] [facility], [address] [place] [address] Suhail Brock MD [address] [facility] [address] [place] [address] 10/18/2025 4:20 PM EST Office Visit [facility] [address] [facility], [address] [place] [address] Moustapha Katz MD [address] [facility] [address] [place] [address] documented as of this encounter [...] documented as of this encounter Care Teams Accounts Payable Supervisor Relationship Specialty Start Date End Date Chris Medel MD [address] [place] [address] PCP - General 03/14/25 Ruma Hernández APRN [address] [facility] 202 [place] [address] Referring Physician Gastroenterology 07/30/23 documented as of this encounter
--- OUTSIDE RECORDS SUMMARY | 2025-07-04 07:45 | XMS_ITS | Encounter Summary ---
Author Organization Healthcare Address [address] [place] [address] Care Team Providers Care Bench Manager Name Role Phone Ruma Hernández CHILDREN'S NURSERY ASSISTANT Unavailable Chris Medel MD Primary Care Provider [phone] Encounter Details Date Type Department Care Team [...] Recorded Patient Health Questionnaire-2 Score 0 06/08/2025 [facility] - Occupational [...] drink first t luisa in the morning (EYE-CASUALTY CLAIM ADJUSTER) to steady your nerves or to get [...] 9:00 AM EDT Clinical Support [facility] [place] [address] [facility] [address] [place] [address] 07/11/2025 9:30 AM EDT Social Work [facility] [place] [address] [facility] [address] [place] [address] [place] [address] 07/11/2025 10:30 AM EDT Office Visit [facility] [place] [address] [facility] [address] [place] [address] Portia Maguire MD [address] [facility] [address] [place] [address] 10/03/2025 12:45 PM EST Office Visit Medical Office Building Urology [address] [facility], [address] [place] [address] Suhail Brock MD [address] [facility] [address] [place] [address] 10/18/2025 4:20 PM EST Office Visit [facility] [address] [facility], [address] [place] [address] Moustapha Katz MD [address] [facility] [address] [place] [address] documented as of this encounter [...] documented as of this encounter Care Teams Bench Manager Relationship Specialty Start Date End Date Chris Medel MD [address] [place] [address] PCP - General 03/14/25 Ruma Hernández APRN [address] [place] [address] Referring Physician Gastroenterology 07/30/23 documented as of this encounter
--- OUTSIDE RECORDS SUMMARY | 2025-07-04 07:45 | XMS_ITS | Encounter Summary ---
Author Organization Healthcare Address [address] [place] [address] Care Team Providers Care Oyster Culler Name Role Phone Ruma Hernández BREASTFEEDING EDUCATOR Unavailable [phone] Chris Medel MD Primary Care Provider [phone] Encounter Details Date Type Department Care Team [...] and heating? Not hard at all 06/15/2025 [facility] of Occupat [...] drink first t luisa in the morning (EYE-PUBLIC HEALTH NURSE) to steady your nerves or to get rid of a hangover? 0 06/14/2025 CAGE Questionnaire Score 0 025 Utilities Answer Date Recorded In the past 12 months has th e [employer], gas, oil, or water company threatened to [...] Clinical Support [facility] Transplant [place] [address] [place] [address] 07/11/2025 9:30 AM EDT Social Work [facility] [address] [place] [address] [place]doLiliane [place] [address] 07/11/2025 10:30 AM EDT Office Visit [facility] [address] [facility] [address] [place] [address] Portia Maguire MD [address] [facility] [address] [place] [address] 10/03/2025 12:45 PM EST Office Visit Medical Office Building Urology [address] [facility], [address] [place] [address] Suhail Brock MD [address] [facility] [address] [place] [address] 10/18/2025 4:20 PM EST Office Visit [facility] [employer] [place] [facility] [address] [place] [address] Moustapha Katz MD [address] [facility] [address] [place] [address] documented as of this encounter [...] documented as of this encounter Care Teams Oyster Culler Relationship Specialty Start Date End Date Chris Medel MD [address] [place] [address] PCP - General 03/14/25 Ruma Hernández APRN [address] [place] [address] Referring Physician Gastroenterology 07/30/23 documented as of this encounter
--- OUTSIDE RECORDS SUMMARY | 2025-07-04 07:45 | XMS_ITS | Clinical Summary ---
Author Organization [facility] Address [address] [place] [address] Care Team Providers Care Restoration Ecologist Name Role Phone ToniUrban morataya DO Primary Care Provider [phone] Allergies Active Allergy Reactions Criticality Noted Date [...] Recently Relevant to Health Maintenance Insurance [facility] BLUE SHIELD PPO Member Subscriber Plan / Payer (Ef fective 2023-Present) Name:David Pop Relation to Subscriber:Self Name:David Pop Payer ID:[id number] ([facility]) Type:Not on file Address: [address] [place] [id number] Care Teams Restoration Ecologist Relationship Specialty Start Date End Date Urban Brantley DO [address] [place] [address] PCP - General Internal Medicine 03/22/23
--- OUTSIDE RECORDS SUMMARY | 2025-07-04 07:45 | XMS_ITS | Encounter Summary ---
Author Organization Healthcare Address [address] [place] [address] Care Team Providers Care Production Material Handler Name Role Phone Ruma Hernández OUTSIDE PLANT ENGINEER Unavailable [phone] Chris Medel MD Primary Care Provider [phone] Encounter Details Date Type Department Care Team (Late st Contact Info) Description 06/14/2025 Results [facility] [address] [place] [address] Meaghan Le, RN [facility] LIVER [id number] [address] [place] [address] Social History Tobacco Use Types [...] often do you attend [facility] or jainism services? More than 4 times per year [...] in a half-way (including now)? No 02/19/2025 Humiliation, Afraid, Rape, [...] often do you attend chur ch or jainism services? More than 4 times per year [...] and heating? Not hard at all 06/15/2025 [facility] Occupat ional Health - Occupational Stress [...] drink first t luisa in the morning (EYE-JOURNEYMAN MACHINIST) to steady your nerves or to get rid of a hangover? 0 06/14/2025 CAGE Questionnaire Score 0 025 Utilities Answer Date Recorded In the past 12 months has th [employer], gas, oil, or water [employer] threatened to shut off services in your [...] AM EDT Clinical Support [facility] [place] [address] [place] [address] 07/11/2025 9:30 AM EDT Social Work [facility] [place] [address] [place] [address] [place] [address] 07/11/2025 10:30 AM EDT Office Visit [facility] [place] [address] [place] [address] Portia Maguire MD [address] [facility] [address] [place] [address] 10/03/2025 12:45 PM EST Office Visit Medical Office Building Urology [address] [facility], [address] [place] [address] Suhail Brock MD [address] [place] [address] 10/18/2025 4:20 PM EST Office Visit [facility] [employer] [place] [facility] [address] [facility], [address] [place] [address] Moustapha Katz MD [address] [facility] [address] [place] [address] documented as of this encounter Visit Diagnoses [...] documented as of this encounter Care Teams Production Material Handler Relationship Specialty Start Date End Date Chris Medel MD [address] [place] [address] PCP - General 03/14/25 Ruma Hernández APRN 1780 [facility] 202 [place] [address] Referring Physician Gastroenterology 07/30/23 documented as of this encounter
--- OUTSIDE RECORDS SUMMARY | 2025-07-04 07:46 | XMS_ITS | Encounter Summary ---
[facility] [address] [place] [address] Care Team Providers Care Pairer Substandard Name Role Phone KaronUrban Hosea CAMARA Primary Care Provider [phone] Encounter Details Date Type Department Care Team (Late st Contact Info) Description 10/14/2023 Telephone [facility] GASTROENTEROLOGY [address] [facility] 202 [place] [address] Ruma Hernández, SPECIAL PROJECTS COORDINATOR [address] [facility] 202 [place], [place] [address] Social History Tobacco Use Types Packs/Day Years [...] on filedocumented in this encounter Care Teams Pairer Substandard Relationship Specialty Start Date End Date Urban Brantley DO [address] [place] [address] PCP - General Internal Medicine 03/22/23 documented as of this encounter
--- OUTSIDE RECORDS SUMMARY | 2025-07-04 07:46 | XMS_ITS | Encounter Summary ---
Author Organization Healthcare Address [address] [place] [address] Care Team Providers Care Commercial Credit Lead Name Role Phone Ruma Hernández GOLF BALL MOLDER Unavailable [phone] Chris Medel MD Primary Care Provider [phone] Reason for Referral * Imaging (Routine) - Pending Review Specialty Diagnoses / Procedures Referred By Gianna reyes Referred To Contact Radiology Diagnoses Pre-liver transplant, listed Procedures US Guided Abdominal Paracentesis Consult to Interventional Radiology Portia Maguire MD [address] [facility] [address] [place] [address] Phone: tel: fax: Referral ID Status Reason Start Date Expiration Date V isits Requested Visits Authorized [id number] Pending Review 06/20/2025 12/20/2026 1 1 Encounter Details Date Type Department Care Team (Late st Contact Info) Description 06/20/2025 Telephone [facility] Transplant Center [address] [facility] [address] [place] [address] Meaghan Le, RN HOSPITAL LIVER [id number] [address] [place] [address] Social History Tobacco Use Types [...] often do you attend chur ch or yazidi services? More than 4 times [...] you attend [facility] or yazidi services? More than 4 [...] and heating? Not hard at all 06/15/2025 [facility] - Occupational Stress Questionnaire [...] drink first t luisa in the morning (EYE-PHP SOFTWARE ENGINEER) to steady your nerves or to get [...] and will also fax an order to [facility] in case he can be seen there sooner. Message to provider. documented in this encounter Plan of Treatment Upcoming Encounters Date Type Department Care Team (Late st Contact Info) Description 07/11/2025 9:00 AM EDT Clinical Support [facility] Transplant [place] [address] [place] [address] 07/11/2025 9:30 AM EDT Social Work [facility] [place] [address] [place] [address] [place] [address] 07/11/2025 10:30 AM EDT Office Visit [facility] [place] [address] [place] [address] Portia Maguire MD [address] [place] [address] 10/03/2025 12:45 PM EST Office Visit Medical Office Building Urology [address] [facility], [address] [place] [address] Suhail Brock MD [address] [place] [address] 10/18/2025 4:20 PM EST Office Visit [facility] [employer] [place] [facility]abolism [address] [facility], [address] [place] [address] Moustapha Katz MD [address] [facility] [address] [place] [address] Scheduled Orders Name Type Priority [...] documented as of this encounter Care Teams Commercial Credit Lead Relationship Specialty Start Date End Date Chris Medel MD [address] [place] [address] PCP - General 03/14/25 Ruma Hernández APRN [address] [place] [address] [address] [place] [address] Referring Physician Gastroenterology 07/30/23 documented as of this encounter
--- OUTSIDE RECORDS SUMMARY | 2025-07-04 07:46 | XMS_ITS | Encounter Summary ---
Author Organization Healthcare Address [address] [place] [address] Care Team Providers Care Composite Bond Worker Name Role Phone Ruma Hernández BEAD BUILDER Unavailable [phone] Chris Medel MD Primary Care Provider [phone] Encounter Details Date Type Department Care Team (Late st Contact Info) Description 04/03/2025 Results Follow-Up [facility] Transplant [facility] [address] [place] [address] Meaghan Le, RN [facility] LIVER [id number] [address] [place] [address] Social History Tobacco Use Types [...] any clubs o r organizations such as christian groups, unions, fraternal or athletic groups, or [...] Recorded Patient Health Questionnaire-2 Score 0 03/14/2025 [facility] - [...] time in the past 12 m [facility], were you homeless or living [...] Description 07/11/2025 9:00 AM EDT Clinical Support [facility] Transplant [place] [address] [facility] [address] [place] [address] 07/11/2025 9:30 AM EDT Social Work [facility] [place] [address] [facility] [address] [place] [address] Liliane Jacobs [place], [place] [address] 07/11/2025 10:30 AM EDT Office Visit [facility] [place] [address] [facility] [address] [place] [address] Portia Maguire MD [address] [facility] [address] [place] [address] 10/03/2025 12:45 PM EST Office Visit Medical Office Building Urology [address] [facility], [address] [place] [address] Suhail Brock MD [address] [facility] [address] [place] [address] 10/18/2025 4:20 PM EST Office Visit [facility] [employer] [facility] Min[facility] Metabolism [address] [facility], [address] [place] [address] Moustapha Katz MD [address] [facility] [address] [place] [address] documented as of this encounter [...] documented as of this encounter Care Teams Composite Bond Worker Relationship Specialty Start Date End Date Chris Medel MD [address] [place] [address] PCP - General 03/14/25 Ruma Hernández APRN [address] [facility] 202 [place] [address] Referring Physician Gastroenterology 07/30/23 documented as of this encounter
--- OUTSIDE RECORDS SUMMARY | 2025-07-04 07:46 | XMS_ITS ---
Author Organization [facility] Address [address] 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
--- OUTSIDE RECORDS SUMMARY | 2025-07-04 07:46 | XMS_ITS | Encounter Summary ---
Author Organization Healthcare Address [address] [place] [address] Care Team Providers Care Margarine Maker Name Role Phone Ruma Hernández MANAGER STUDIO Unavailable [phone] Chris Medel MD Primary Care Provider [phone] Encounter Details Date Type Department Care Team (Late st Contact Info) Description 03/30/2025 Results Follow-Up [facility] [address] [place] [address] Meaghan Le, RN [facility] [id number] [address] [place] [address] Social History Tobacco Use Types [...] Recorded Patient Health Questionnaire-2 Score 0 03/14/2025 [facility] [place] [facility] - Occupational Stress Questionnaire [...] any time in the past 12 m [facility], were you homeless or living in a [...] EDT Clinical Support [facility] [address] [facility] [address] [place] [address] 07/11/2025 9:30 [address] [facility] [address] [facility] [address] [place] [address] Liliane Jacobs [place], [place] [id number] 07/11/2025 10:30 AM EDT Office Visit [facility] [address] [facility] [address] [place] [address] Portia Maguire MD [address] [facility] [address] [place] [address] 10/03/2025 12:45 PM EST Office Visit Medical Office Building [facility] [address] [facility] [address], [address] [place] [address] Suhail Brock MD [address] [facility] [address] [place] [address] 10/18/2025 4:20 PM EST Office Visit [facility] [employer] [facility] [address], [address] [place] [address] Moustapha Katz MD [address] [facility] [address] [place] [address] documented as of this encounter [...] documented as of this encounter Care Teams Margarine Maker Relationship Specialty Start Date End Date Chris Medel MD [address] [place] [address] PCP - General 03/14/25 Ruma Hernández APRN [address] [facility] [address] [place] [address] Referring Physician Gastroenterology 07/30/23 documented as of this encounter
--- OUTSIDE RECORDS SUMMARY | 2025-07-04 07:46 | XMS_ITS | Encounter Summary ---
Author Organization Healthcare Address [address] [place] [address] Care Team Providers Care Clinical Trial Head Name Role Phone Urban Brantley DO Primary Care Provider [phone] Ruma Hernández DRAFTER CARTOGRAPHIC Unavailable [phone] Chris Medel MD Primary Care Provider [phone] Encounter Details Date Type Department Care Team (Late st Contact Info) Description 03/22/2023 Orders Only External Location [address] [place] [address] Provider, External Social History Tobacco Use Types [...] AM EDT Clinical Support [facility] [place] [address] [address] 07/11/2025 9:30 AM EDT Social Work [facility] [place] [address] [address] [place] [address] 07/11/2025 10:30 AM EDT Office Visit [facility] [address] [place] [address] Portia Maguire MD [address] [place] [address] 10/03/2025 12:45 PM EST Office Visit Medical Office Building Urology [address] [facility], [address] [place] [address] Suhail Brock MD [address] [place] [address] 10/18/2025 4:20 PM EST Office Visit [facility] [address] [facility], [address] [place] [address] Moustapha Katz MD [address] [facility] [address] [place] [address] documented as of this encounter [...] documented as of this encounter Care Teams Clinical Trial Head Relationship Specialty Start Date End Date Urban Brantley DO [address] [place] [address] PCP - General 07/30/23 03/13/25 Chris Medel MD [address] [place] [address] PCP - General 03/14/25 Ruma Hernández APRN [address] [place], [place] [address] [address] Referring Physician Gastroenterology 07/30/23 documented as of this encounter
--- OUTSIDE RECORDS SUMMARY | 2025-07-04 07:46 | XMS_ITS | Encounter Summary ---
Author Organization Healthcare Address [address] [place] [address] Care Team Providers Care Biofuels Production Manager Name Role Phone Ruma Hernández TIP TESTER Unavailable [phone] Chris Medel MD Primary Care Provider [phone] Encounter Details Date Type Department Care Team [...] often do you attend chur ch or advent services? More than 4 times per year [...] Questionnaire-2 Score 0 06/08/2025 [facility] - Occupational Stress Questionnaire Answer [...] AM EDT Clinical Support [facility] [place] [address] [facility] [address] [place] [address] 07/11/2025 9:30 AM EDT Social Work [facility] [place] [address] [place] [address] Liliane Jacobs [place] [id number] 07/11/2025 10:30 AM EDT Office Visit [facility] [place] [address] [facility] [address] [place] [address] Portia Maguire MD [address] [facility] [address] [place] [address] 10/03/2025 12:45 PM EST Office Visit Medical Office Building [facility]rology [address] [facility], [address] [place] [address] Suhail Brock MD [address] [facility] [address] [place] [address] 10/18/2025 4:20 PM EST Office Visit [employer] [facility] [address] [facility], [address] [place] [address] Moustapha Katz MD [address] [facility] [address] [place] [address] documented as of this encounter [...] documented as of this encounter Care Teams Biofuels Production Manager Relationship Specialty Start Date End Date Chris Medel MD [address] [place] [address] PCP - General 03/14/25 Ruma Hernández APRN [address] [place] [address] Referring Physician Gastroenterology 07/30/23 documented as of this encounter
--- OUTSIDE RECORDS SUMMARY | 2025-07-04 07:46 | XMS_ITS | Encounter Summary ---
Author Organization [facility] Address [address] [place] [address] Care Team Providers Care Vice President Pharmacy Name Role Phone KaronUrban Hosea CAMARA Primary Care Provider [phone] Encounter Details Date Type Department Care Team (Late st Contact Info) Description 10/14/2023 Telephone [facility] [address] [facility] [address] [place] [address] Ruma Hernández, SSN/SSBN [employer] EQUIPMENT OPERATOR [address] [facility] [address] [place], [place] [id number] Social History Tobacco Use Types Packs/Day Years [...] on filedocumented in this encounter Care Teams Vice President Pharmacy Relationship Specialty Start Date End Date Urban Brantley DO [address] [place] [address] PCP - General Internal Medicine 03/22/23 documented as of this encounter
--- OUTSIDE RECORDS SUMMARY | 2025-07-04 07:46 | XMS_ITS | Clinical Summary ---
Author Organization [facility] Address [address] [place] [address] Care Team Providers Care Strategy Intern Name Role Phone Ruma Hernández WHEELAGE CLERK Unavailable [phone] Chris Medel MD Primary Care Provider [phone] Allergies Active Allergy Reactions Criticality Noted Date [...] 5 Active ergocalciferol (Vitamin D-2) 1.25 MG (47386 UT) capsule Take 1 capsule by mouth [...] Encounters Date Type Department Care Team Description 06/29/2025 Results Follow-Up [facility] [address] [place] [address] Meaghan Le RN 06/25/2025 Telephone [facility] [address] [place] [address] Meaghan Le, SILVIO 06/21/2025 Results Follow-Up [facility] [place] [address] [place] [address] Meaghan Le, RN 06/20/2025 Telephone [facility] [address] [place] [address] Meaghan Le, RN 06/15/2025 11:59 PM EDT Anesthesia Event [facility] OPERATING ROOM [address] [place] [address] Mary Castellon, Fanta Vizcarra, WHEELAGE CLERK 06/14/2025 3:47 PM EDT - 06/15/2025 6:14 PM EDT Hospital Encounter [facility] Inpatient [address] [place] [address] Luis Angel Bee MD Alcoholic cirrhosis, unspecified whether ascites present (CMS/HCC) (Primary Dx) Discharge Disposition: Home or Self Care 06/14/2025 Travel 06/14/2025 Results Follow-Up [facility] [place] [address] [facility] [address] [place] [address] Meaghan Le, SILVIO 06/14/2025 Results Follow-Up [place] [id number] [address] Meaghan Le, RN 06/13/2025 12:57 PM EDT - 06/13/2025 11:59 PM EDT Hospital Encounter [facility] Radiology [address] [place] [address] Chris Knott, SILVIO Pre-liver transplant, listed Discharge Disposition: Home or Self Care 06/13/2025 10:36 AM EDT - 06/13/2025 12:56 PM EDT Hospital Encounter Cardiac Imaging [address] [place] [address] Pre-liver transplant, listed Discharge Disposition: Home or Self Care 06/13/2025 9:56 AM EDT - 06/13/2025 10:35 AM EDT Hospital Encounter [facility] [address] [place] [address] Alcoholic cirrhosis, unspecified whether ascites present (CMS/HCC) Discharge Disposition: Home or Self Care 06/13/2025 8:00 AM EDT Office Visit [facility] [address] [place] [address] Portia Maguire MD Alcoholic cirrhosis, unspecified whether [...] - 06/13/2025 9:55 AM EDT Hospital Encounter [facility] [address] [place] [address] Pre-liver transplant, listed Discharge Disposition: Home or Self Care 06/13/2025 Telephone [facility] [address] [place] [address] Zeferino Trejo, PharmD 06/13/2025 Travel 06/08/2025 12:20 PM EDT Office Visit [facility] [address], [address] [place] [address] Moustapha Katz MD Age-related osteoporosis without current pathological fracture (Primary Dx) 06/08/2025 8:35 AM EDT - 06/08/2025 11:59 PM EDT Hospital Encounter [facility] [address], [address] [place] [address] Other osteoporosis without current pathological fracture Discharge Disposition: Home or Self Care 06/08/2025 Travel 06/07/2025 Telephone [facility] [address], [address] [place] [address] Mary Chatman LPN 06/06/2025 Telephone [facility] [address] [place] [address] Mell Masterson RN 06/05/2025 Travel 06/05/2025 Results Follow-Up [facility] [address] [place] [address] Meaghan Le RN 05/22/2025 Telephone [facility] [address] [address] Meaghan Le RN 05/01/2025 Results Follow-Up [facility] [address] [address] Meaghan Le RN 04/03/2025 Results Follow-Up [facility] [place] [address] [address] Meaghan Le, RN from Last 3 Months [...] in the past 12 m [facility], were you homeless or [...] heating? 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 0 06/14/2025 CAGE Questionnaire Score 0 025 Utilities Answer Date Recorded In the past 12 months has th [employer] electric, gas, oil, or water company threatened [...] Clinical Support [facility] [place] [address] [facility] [address] [place] [address] 07/11/2025 9:30 AM EDT Social Work [facility] [place] [address] [place] [address] [place] [address] 07/11/2025 10:30 AM EDT Office Visit [facility] [place] [address] [facility] [address] [place] [address] Portia Maguire MD [address] [facility] [address] [place] [address] 10/03/2025 12:45 PM EST Office Visit Medical Office Building Urology [address], [address] [place] [address] Suhail Brock MD [address] [facility] [address] [place] [address] 10/18/2025 4:20 PM EST Office Visit [facility] [address], [address] [place] [address] Moustapha Katz MD [address] [facility] [address] [place] [address] Health Maintenance Due Date Last [...] - Risk 60-74 years 1-dose series) 2021 [id number] Vaccine (1 - season) 2024 UKY-Influenza Vaccine [...] Diagnosis Comments COMPREHENSIVE METABOLIC PANEL, PLASMA Routine 06/27/2025 CBC W/O DIFFERENTIAL Routine 06/27/2025 PROTHROMBIN TIME(PT) / INR Routine 06/27/2025 COMPREHENSIVE METABOLIC PANEL, PLASMA Routine 06/20/2025 CBC [...] 04/30/2025 PROTHROMBIN TIME(PT) / INR Routine 04/30/2025 from Last 3 Months Results * Prothrombin Time/INR (06/27/2025) Only the most recent of6 resultswithin the time period is included. External Prothrombin Time (PT) 17.9 External INR - Internormal Ratio 1.68 Blood Venous blood specimen / Unknown 06/27/2025 [facility] Provider LAB BLOOD ORDERABLES Final R esult * CBC W/O Differential (06/27/2025) Only the most recent of5 resultswithin the time period is included. Pathologist [facility] External WBC 4.7 External Red Blood Cell (RBC) 3.29 External Hemoglobin (Hgb) 11.30 External Hematocrit (Hct) 33.9 External Platelet Count (Plt) 94 Blood Venous blood specimen / Unknown 06/27/2025 [facility] LAB BLOOD ORDERABLES Final R esult * Comprehensive Metabolic Panel, Plasma (06/27/2025) Only the most recent of6 resultswithin the time period is included. Pathologist [facility] External Glucose 106 External BUN 9 External Creatinine Blood 0.60 mg/dL External Sodium (Na) 135 mEq/L External Potassium (K) 4.1 External Chloride (Cl) 109 External Carbon Dioxide (CO2) 27 External Anion Gap (AG) 3.1 External Calcium (Ca) 8.0 External Total Protein 6.6 External Albumin 2.3 g/dL External AST (SGOT) 46 External ALT (SGPT) 28 External Alkaline Phosphatase 253 External Bilirubin Total 4.6 mg/dL External Estimated GFR 136 Blood Venous blood specimen / Unknown 06/27/2025 [facility] Provider LAB BLOOD ORDERABLES Final R esult * ECG Adult (06/15/2025 10:35 AM EDT) Pathologist [facility] EKG DIAGNOSIS CLASS Abnormal MUSE ECG Ventricular Rate 65 BPM MUSE ECG Atrial Rate 65 BPM MUSE ECG MI Interval 162 ms MUSE ECG QRSD Interval 86 ms MUSE ECG QT Interval 446 ms MUSE ECG QTC Interval 463 ms MUSE ECG P [place] 4 degrees MUSE ECG R [place] 58 degrees MUSE ECG T Wave [place] 22 degrees MUSE ECG Diagnosis Normal sinus rhythm MUSE ECG Diagnosis Cannot rule out Anterior infarct , age undetermined MUSE ECG Diagnosis Abnormal ECG MUSE ECG Diagnosis MUSE ECG Diagnosis Confirmed by Max Gregorio ([id number]) on 06/15/2025 3:47:28 PM MUSE ECG 06/15/2025 10:3 5 AM EDT 06/15/2025 3:47 PM EDT Mary Castellon PA ECG ORDERABLES Final Result MUSE ECG * Leticia auris Surveillance by PCR (06/14/2025 6:47 PM EDT) Leticia auris PCR Result Not Detected Not Detected 06/18/2025 5:43 AM EDT [facility] Swab (Axilla and Groin) Non-blood Collection / Unknown 06/14/2025 6:47 PM EDT 06/14/2025 7:49 PM EDT Narrative [facility] - 06/18/2025 5:43 AM EDT This PCR assay was developed and its performance characteristics determined by [facility] as appropriate for clinical purposes. This assay has not been cleared or approved by the FDA, but is performed in a CLIA regulated laboratory that is qualified to perform high-complexity testing. Luis Angel Bee MD LAB MICROBIOLOGY - GENERA L ORDERABLES Final Result [facility] [address] [place] [address] * SARS CoV-2/COVID-19 by PCR - Rapid (06/14/2025 6:47 PM EDT) SARS CoV-2/COVID-1 9 RNA PCR Result Not Detected Not Detected 06/14/2025 8:35 PM EDT [facility] Swab Nasopharyngeal structure / Unknown Non-blood Collection / Unknown 06/14/2025 6:47 PM EDT 06/14/2025 7:49 PM EDT Narrative [facility] - 06/14/2025 8:35 PM EDT [...] L ORDERABLES Final Result Performing Organization Address [facility]/ZIP Co de Phone Number [facility] [address] [place] [address] * (ABNORMAL) Hepatitis B Surface Antibody, Quantitative (06/14/2025 6:31 PM EDT) [facility] Hepatitis B Surface Antibody, Quantitative 34.47(H) NonReacti ve: <8, Grayzone: 8 - <12, Reactive: >= 12 mIU/mL 06/14/2025 8:18 PM EDT [facility] Comment: Reactive. Individual is considered immune to HBV infection. Blood Venous blood specimen / Unknown Venipuncture / Unknown 06/14/2025 6:31 PM EDT 06/14/2025 7:05 PM EDT us Luis Angel Bee MD LAB BLOOD ORDERABLES Nadia l Result Performing Organization Address City/[facility]/ZIP Co de Phone Number [facility] [address] [place] [address] * Light Green Top (06/14/2025 6:31 PM EDT) Pathologist [facility] Extra Hold for add-ons 06/14/2025 11:01 PM EDT [facility] Comment:Auto resulted. Blood Venous blood specimen / Unknown 06/14/2025 6:31 PM EDT 06/14/2025 8:12 PM EDT Result Neto Bee MD LAB BLOOD ORDERABLES Nadia l Result Performing Organization Address City/[facility]/ZIP Co de Phone Number [facility] [address] [place] [address] * Red Top (06/14/2025 6:31 PM EDT) Pathologist [facility] Extra Hold for add-ons 06/14/2025 11:01 PM EDT [facility] Comment:Auto resulted. Blood Venous blood specimen / Unknown 06/14/2025 6:31 PM EDT 06/14/2025 8:12 PM EDT Result Neto Bee MD LAB BLOOD ORDERABLES Nadia l Result Performing Organization Address [facility] Co de Phone Number [facility] [address] [place] [address] * Hepatitis C Virus (HCV) Quantitative PCR (06/14/2025 6:31 PM EDT) Pathologist [facility] Hepatitis C Virus (HCV) Quantitative Interpretation Not Detected Not Detected. 06/18/2025 10:15 PM EDT [facility] Blood Venous blood specimen / Unknown Venipuncture / Unknown 06/14/2025 6:31 PM EDT 06/15/2025 8:51 AM EDT Narrative [facility] - 06/18/2025 10:15 PM EDT [...] ORDERABLES Nadia l Result Performing Organization Address City/[facility] Co de Phone Number [facility] [address] [place] [address] * HIV 1 & 2 Antibody/Antigen Screen (06/14/2025 6:31 PM EDT) HIV 1 & 2 Antibody/Antigen Screen Non Reactive Non Reactive 06/14/2025 7:45 PM EDT [facility] Comment:Screening for HIV 1 & 2 antibodies, and P24 antigen is NONREACTIVE. No confirmatory testing is required. Blood Venous blood specimen / Unknown Venipuncture / Unknown 06/14/2025 6:31 PM EDT 06/14/2025 7:05 PM EDT us Luis Angel Bee MD LAB BLOOD ORDERABLES Nadia l Result Performing Organization Address [facility] Co de Phone Number [facility] [address] [place] [address] * Hepatitis C Antibody (06/14/2025 6:31 PM EDT) Hepatitis C Antibody Negative Negative 06/14/2025 7:45 PM EDT [facility] Blood Venous blood specimen / Unknown Venipuncture / Unknown 06/14/2025 6:31 PM EDT 06/14/2025 7:05 PM EDT us Luis Angel Bee MD LAB BLOOD ORDERABLES Nadia l Result Performing Organization Address City/[facility]/ZIP Co de Phone Number [facility] [address] [place] [address] * Hepatitis B Core Total Antibody IgG,IgM (06/14/2025 6:31 PM EDT) Pathologist [facility] Hepatitis B Core Total Antibody IgG,IgM Negative Negative 06/14/2025 8:18 PM EDT [facility] Blood Venous blood specimen / Unknown Venipuncture / Unknown 06/14/2025 6:31 PM EDT 06/14/2025 7:05 PM EDT us Luis Angel Bee MD LAB BLOOD ORDERABLES Nadia l Result Performing Organization Address [facility] de Phone Number [facility] [address] [place] [address] * (ABNORMAL) Vitamin D 25 Hydroxy (06/14/2025 6:31 PM EDT) Only the most recent of2 resultswithin the time period is included. Vitamin D 25 Hydroxy 10.8(L) 20.0 - 80.0 ng/mL 06/14/2025 8:19 PM EDT [facility] Blood Venous blood specimen / Unknown Venipuncture / Unknown 06/14/2025 6:31 PM EDT 06/14/2025 7:05 PM EDT Narrative [facility] - 06/14/2025 8:19 PM EDT Testing performed on Sold Overhauler, standardized against NIST SRM 2972. When testing [...] ORDERABLES Nadia l Result Performing Organization Address City/[facility]/ZIP Co de Phone Number [facility] [address] [place] [address] * Hepatitis B Surface Antigen (06/14/2025 6:31 PM EDT) Pathologist [facility] Hepatitis B Surf Antigen Negative Negative 06/14/2025 8:18 PM EDT [facility] Blood Venous blood specimen / Unknown Venipuncture / Unknown 06/14/2025 6:31 PM EDT 06/14/2025 7:05 PM EDT Luis Angel Bee MD LAB BLOOD ORDERABLES Nadia l Result [facility] [address] [place] [address] * Cytomegalovirus Antibody IgG (06/14/2025 6:31 PM EDT) CMV ANTIBODY IGG <0.20 <=0.59 U/mL 06/16/2025 9:07 PM EDT [employer] Blood Venous blood specimen / Unknown Venipuncture / Unknown 06/14/2025 6:31 PM EDT 06/14/2025 7:05 PM EDT Narrative [facility]) - 06/16/2025 9:07 PM EDT INTERPRETIVE INFORMATION: [...] laboratory at the same time. Performed By: [facility] [address] [place] [address] Standpipe Tender: Balwinder Wadsworth MD, PhD CLIA Number: [id number] Luis Angel Bee MD LAB BLOOD ORDERABLES Nadia l Result [facility]) [address] [place] [address] * (ABNORMAL) APTT (06/14/2025 6:31 PM EDT) aPTT 47(H) 25 - 35 sec LAB COAGULATION METHOD 06/14/2025 7:23 PM EDT [facility] Blood Venous blood specimen / Unknown Venipuncture / Unknown 06/14/2025 6:31 PM EDT 06/14/2025 7:05 PM EDT us Luis Angel Bee MD LAB BLOOD ORDERABLES Nadia crockett Result [facility] [address] [place] [address] * (ABNORMAL) CBC and Differential (06/14/2025 6:31 PM EDT) WBC Count 7.95 3.70 - 10.30 10*3/uL LAB HEMATOLOGY METHOD 06/14/2025 7:24 PM EDT [facility] RBC Count 2.90(L) 4.60 - 6.10 10*6/uL LAB HEMATOLOGY METHOD 06/14/2025 7:24 PM EDT [facility] HGB 10.1(L) 13.7 - 17.5 g/dL LAB HEMATOLOGY METHOD 06/14/2025 7:24 PM EDT [facility] HCT 29.7(L) 40.0 - 51.0 % LAB HEMATOLOGY METHOD 06/14/2025 7:24 PM EDT [facility] Platelet Count 56(L) 155 - 369 10*3/uL LAB HEMATOLOGY METHOD 06/14/2025 7:24 PM EDT [facility] MCV 102(H) 79 - 98 fL LAB HEMATOLOGY METHOD 06/14/2025 7:24 PM EDT [facility] MCH 34.8(H) 26.0 - 32.0 pg LAB HEMATOLOGY METHOD 06/14/2025 7:24 PM EDT [facility] MCHC 34.0 30.7 - 35.5 g/dL LAB HEMATOLOGY METHOD 06/14/2025 7:24 PM EDT [facility] RDW 16.9(H) 11.5 - 14.5 % LAB HEMATOLOGY METHOD 06/14/2025 7:24 PM EDT [facility] MPV 11.5 8.8 - 12.5 fL LAB HEMATOLOGY METHOD 06/14/2025 7:24 PM EDT [facility] nRBC 0.0 <=0.0 per 100 WBCs LAB HEMATOLOGY METHOD 06/14/2025 7:24 PM EDT [facility] Differential Type Automated LAB HEMATOLOGY METHOD 06/14/2025 7:24 PM EDT [facility] Neutrophils % 56 % LAB HEMATOLOGY METHOD 06/14/2025 7:24 PM EDT [facility] Lymphocytes % 25 % LAB HEMATOLOGY METHOD 06/14/2025 7:24 PM EDT [facility] Monocytes % 13 % LAB HEMATOLOGY METHOD 06/14/2025 7:24 PM EDT [facility] Eosinophils % 4 % LAB HEMATOLOGY METHOD 06/14/2025 7:24 PM EDT [facility] Basophils % 1 % LAB HEMATOLOGY METHOD 06/14/2025 7:24 PM EDT [facility] Immature Granulocytes % 1 % LAB HEMATOLOGY METHOD 06/14/2025 7:24 PM EDT [facility] Neutrophils Absolute 4.56 1.60 - 6.10 10*3/uL LAB HEMATOLOGY METHOD 06/14/2025 7:24 PM EDT [facility] Lymphocytes Absolute 1.97 1.20 - 3.90 10*3/uL LAB HEMATOLOGY METHOD 06/14/2025 7:24 PM EDT [facility] Monocytes Absolute 1.03(H) 0.30 - 0.90 10*3/uL LAB HEMATOLOGY METHOD 06/14/2025 7:24 PM EDT [facility] Eosinophils Absolute 0.31 0.00 - 0.50 10*3/uL LAB HEMATOLOGY METHOD 06/14/2025 7:24 PM EDT [facility] Basophils Absolute 0.04 0.00 - 0.10 10*3/uL LAB HEMATOLOGY METHOD 06/14/2025 7:24 PM EDT [facility] Immature Granulocytes Absolute 0.04 0.00 - 0.06 10*3/uL LAB HEMATOLOGY METHOD 06/14/2025 7:24 PM EDT [facility] Blood Venous blood specimen / Unknown Venipuncture / Unknown 06/14/2025 6:31 PM EDT 06/14/2025 7:06 PM EDT Narrative [facility] - 06/14/2025 7:24 PM EDT Therapeutic decision making should be based on absolute values, rather than percentages. us Luis Angel Bee MD LAB BLOOD ORDERABLES Nadia l Result Performing Organization Address City/[facility] Co de Phone Number [facility] [address] [place] [address] * Type and screen (06/14/2025 6:31 PM [...] ORDER MARYA Final Result Performing Organization Address [facility] de Phone Number BLOOD BANK [address] [place] [address], * CT Angio Cardiac Coronary Arteries (06/13/2025 [...] source 192 MDCT scanner ([employer], [employer]) was used for data acquisition. A [...] for coronary CTA for cardiac evaluation prior jaed transplantation Height: 167.6 cm Weight: 103 kg [...] mmHg NII ISCV RAP systole 3 mmHg INI ISCV Anatomical Region Laterality Modality Echocardiography Narrative [...] are based on Ultrasound LI-RADS version 2017. [email or web address] CRITICAL RESULT: No. COMMUNICATION: Per [...] recommendations are based on UltrasoundLI-RADS version 2017. [email or web address] CRITICAL RESULT: No. COMMUNICATION: Per [...] Gloria Alexander MD on 06/13/2025 11:30 AM us Zarina INTERIANO IMG XR PROCEDURES Final Result * (ABNORMAL) Bone Specific Alkaline Phosphatase (06/13/2025 6:50 AM EDT) Bone Specific Alkaline Phosphatase 36.4(H) 6.5 - 20.1 ug/L 06/13/2025 9:09 AM EDT [facility] Comment:Test performed at [facility]. Blood Venous blood specimen / Unknown Venipuncture / Unknown 06/13/2025 6:50 AM EDT 06/13/2025 7:24 AM EDT us Moustapha Katz MD LAB REF LAB BLOOD AND FLUID OR D Final Result [facility] [address] [place] [address] * Pain Management, Quantitative Urine Drug Testing (06/13/2025 6:50 AM EDT) [facility] [place] Alprazolam <20 <20 ng/mL 06/16 10:13 AM EDT [facility] [place] Midazolam <20 <20 ng/mL 2024 10:13 AM EDT [facility] [place] Triazolam <20 <20 ng/mL 2024 10:13 AM EDT [facility] Alprazolam <10 <10 ng/mL 06/16/2025 10:13 AM EDT [facility] Aminoclonazepam <20 <20 ng/mL 10:13 AM EDT [facility] Amphetamine <50 <50 ng/mL 06/16/2025 10:13 AM EDT [facility] Benzoylecgonine <50 <50 ng/mL 10:13 AM EDT [facility] Buprenorphine <10 <10 ng/mL 06/16/2025 10:13 AM EDT [facility] Buprenorphine Glucuronide <50 <50 ng/mL 06/16/2025 10:13 AM EDT [facility] Butalbital <50 <50 ng/mL 06/16/2025 10:13 AM EDT [facility] 9 Carboxy THC <10 <10 ng/mL 06/16/2025 10:13 AM EDT [facility] 9 Carboxy THC Glucuronide <25 <25 ng/mL 06/16/2025 10:13 AM EDT [facility] Clonazepam <10 <10 ng/mL 06/16/2025 10:13 AM EDT [facility] Codeine <50 <50 ng/mL 06/16/2025 10:13 AM EDT [facility] Codeine Glucuronide <50 <50 ng/mL 06/16 10:13 AM EDT [facility] Cyclobenzaprine <50 <50 ng/mL 10:13 AM EDT [facility] Desmethyl Tramadol <50 <50 ng/mL 2024 10:13 AM EDT [facility] Diazepam <10 <10 ng/mL 06/16/2025 10:13 AM EDT [facility] EDDP - Methadone Metabolite <50 <50 ng/mL 06/16/2025 10:13 AM EDT [facility] Fentanyl <1 <1 ng/mL 06/16/2025 10:13 AM EDT [facility] Hydrocodone <50 <50 ng/mL 06/16/2025 10:13 AM EDT [facility] Hydromorphone <50 <50 ng/mL 06/16/2025 10:13 AM EDT [facility] Hydromorphone Glucuronide <50 <50 ng/mL 06/16/2025 10:13 AM EDT [facility] Lorazepam <20 <20 ng/mL 06/16/2025 10:13 AM EDT [facility] Lorazepam Glucuronide <50 <50 ng/mL 06/16/2025 10:13 AM EDT [facility] MDA <50 <50 ng/mL 06/16/2025 10:13 AM EDT [facility] MDMA <50 <50 ng/mL 06/16/2025 10:13 AM EDT [facility] Meperidine <50 <50 ng/mL 06/16/2025 10:13 AM EDT [facility] Methadone <50 <50 ng/mL 06/16/2025 10:13 AM EDT [facility] Methamphetamine <50 <50 ng/mL 10:13 AM EDT [facility] Methylphenidate <50 <50 ng/mL 10:13 AM EDT [facility] 6 Monoacetyl morphine <10 <10 ng/mL 06/16/2025 10:13 AM EDT [facility] Morphine <50 <50 ng/mL 06/16/2025 10:13 AM EDT [facility] Morphine Glucuronide <50 <50 ng/mL 12/2024 10:13 AM EDT [facility] Naloxone <50 <50 ng/mL 06/16/2025 10:13 AM EDT [facility] Naloxone Glucuronide <50 <50 ng/mL 12/2024 10:13 AM EDT [facility] Norbuprenorphine <10 <10 ng/mL 06/16/20 10:13 AM EDT [facility] Norbuprenorphine Glucuronide <50 <50 ng/mL 06/16/2025 10:13 AM EDT [facility] Nordiazepam <20 <20 ng/mL 06/16/2025 10:13 AM EDT [facility] Norfentanyl <2 <2 ng/mL 06/16/2025 10:13 AM EDT [facility] Normeperidine <50 <50 ng/mL 06/16/2025 10:13 AM EDT [facility] PCP Quant, Ur <50 <50 ng/mL 06/16/2025 10:13 AM EDT [facility] Phenobarbital <50 <50 ng/mL 06/16/2025 10:13 AM EDT [facility] Oxazepam <20 <20 ng/mL 06/16/2025 10:13 AM EDT [facility] Oxazepam Glucuronide <50 <50 ng/mL 12/2024 10:13 AM EDT [facility] Oxycodone <50 <50 ng/mL 06/16/2025 10:13 AM EDT [facility] Oxymorphone <50 <50 ng/mL 06/16/2025 10:13 AM EDT [facility] Oxymorphone Glucuronide <50 <50 ng/mL 06/16/2025 10:13 AM EDT [facility] Secobarbital <50 <50 ng/mL 06/16/2025 10:13 AM EDT [facility] Tramadol <50 <50 ng/mL 06/16/2025 10:13 AM EDT [facility] Temazepam <20 <20 ng/mL 06/16/2025 10:13 AM EDT [facility] Temazepam Glucuronide <50 <50 ng/mL 06/16/2025 10:13 AM EDT [facility] Urine Urine specimen obtained by clean catch procedure / Unknown Non-blood Collection / Unknown 06/13/2025 6:50 AM EDT 06/13/2025 7:26 AM EDT Narrative [facility] - 06/16/2025 10:13 AM EDT This [...] laboratory. Test performed by LC-MS/MS at the [facility] Special Chemistry Laboratory. This test was developed and its performance characteristics determined by [facility]. It has not been cleared or approved by the FDA. The laboratory is regulated under CLIA as qualified to perform high-complexity testing. This test is used for clinical purposes. Zarina INTERIANO LAB URINE ORDERABLES Final Resu lt [facility] [address] [place] [address] * C-Telopeptide (06/13/2025 6:50 AM EDT) C Telopeptide Beta Cross Linked Serum Result 397 132 - 752 pg/mL 06/14/2025 9:07 PM EDT [facility]) Blood Venous blood specimen / Unknown Venipuncture / Unknown 06/13/2025 6:50 AM EDT 06/13/2025 7:25 AM EDT Narrative [facility] BILL) - 06/14/2025 9:07 PM EDT REFERENCE INTERVAL: C-Telopeptide, Psim-Mhbip-[id number], Serum Access complete set of age- and/or gender-specific reference intervals for this test in the [facility] Test Directory ([employer]). Performed By: [facility] [address] [place] [address] Standpipe Tender: Balwinder Wadsworth MD, PhD CLIA Number: [id number] Moustapha Katz MD LAB BLOOD ORDERABLES Final Res ult Performing Organization Address [facility] Co de Phone Number [facility] ([facility]) [address] [place] [address] * Nicotine Cotinine Metabolite (06/13/2025 6:50 AM EDT) NICOTINE <5 <5 ng/mL 06/14/2025 11:39 AM EDT [facility] Cotinine <5 <5 ng/mL 06/14/2025 11:39 AM EDT [facility] Blood Venous blood specimen / Unknown Venipuncture / Unknown 06/13/2025 6:50 AM EDT 06/13/2025 7:25 AM EDT Narrative [facility] - 06/14/2025 11:39 AM EDT Testing performed by LC-MS/MS at the [facility] Special Chemistry/Toxicology Laboratory. This test was developed and its performance characteristics determined by [facility]. This assay has not been cleared by the FDA. The laboratory is regulated under CLIA as qualified to perform high-complexity testing. This test is used for clinical purposes. us Zarina INTERIANO LAB BLOOD ORDERABLES Final Resu lt [facility] [address] [place] [address] * Osteocalcin by ECIA (06/13/2025 6:50 AM EDT) OSTEOCALCIN BY ECIA 8 8 - 36 ng/mL 06/15/2025 12:10 AM EDT [facility] ([place]) Blood Venous blood specimen / Unknown Venipuncture / Unknown 06/13/2025 6:50 AM EDT 06/13/2025 7:58 AM EDT Narrative EUGEN[facility] KHAN) - 06/15/2025 12:10 AM EDT INTERPRETIVE INFORMATION: Osteocalcin by ECIA In patients with renal failure, the osteocalcin result may be directly elevated, due to impaired clearance, and/or indirectly elevated due to renal osteodystrophy. Access complete set of age- and/or gender-specific reference intervals for this test in the [facility] Test Directory ([employer]). Performed By: [facility] [address] [place] [address] Standpipe Tender: Balwinder Wadsworth MD, PhD CLIA Number: [id number] Moustapha Katz MD LAB BLOOD ORDERABLES Final Res ult [facility] BILL) [address] [place] [address] * Alcohol Urine (06/13/2025 6:50 AM EDT) Alcohol Urine Negative Negative 06/13/2025 12:50 PM EDT [facility] Urine Urine specimen obtained by clean catch procedure / Unknown Non-blood Collection / Unknown 06/13/2025 6:50 AM EDT 06/13/2025 7:27 AM EDT Narrative [facility] - 06/13/2025 12:50 PM EDT The correlation between urine and serum ethanol concentration is highly variable. Test performed by Gas Chromatography at the [facility] Special Chemistry Laboratory. This test was developed and its performance characteristics determined by [employer]. It has not been cleared or approved by the FDA.The laboratory is regulated under CLIA as qualified to perform high-complexity testing. This test is used for clinical purposes only. The correlation between urine and serum ethanol concentration is highly variable. Test performed by Gas Chromatography at the [facility] Special Chemistry Laboratory. This test was developed and its performance characteristics determined by [facility]. It has not been cleared or approved by the FDA.The laboratory is regulated under CLIA as qualified to perform high-complexity testing. This test is used for clinical purposes only. us Zarina INTERIANO LAB URINE ORDERABLES Final Resu lt Performing Organization Address City/[facility]/ZIP Co de Phone Number [facility] [address] [place] [address] * Vitamin D 1,25 Dihydroxy (06/13/2025 6:50 AM EDT) VITAMIN D, 1, 25-DIHYDROXY 43.7 19.9 - 79.3 pg/mL 06/13/2025 12:37 PM EDT [facility] Blood Venous blood specimen / Unknown Venipuncture / Unknown 06/13/2025 6:50 AM EDT 06/13/2025 7:25 AM EDT Moustapha Katz MD LAB BLOOD ORDERABLES Final Res ult Performing Organization Address City/[facility]/ZIP Co de Phone Number [facility] [address] [place] [address] * (ABNORMAL) Comprehensive Urine Drug Screening, Qualitative Assay, >= 27 Drug Classes (56:50 AM EDT) Acetaminophen Negative Negative 06/14/2025 9:02 AM EDT [facility] Alprazolam Negative Negative 06/14/2025 9:02 AM EDT [facility] Amantadine Negative Negative 06/14/2025 9:02 AM EDT [facility] Amitriptyline Negative Negative 06/14/2025 9:02 AM EDT [facility] Amphetamine Negative Negative 06/14/2025 9:02 AM EDT [facility] Atenolol Negative Negative 06/14/2025 9:02 AM EDT [facility] Benzoylecgonine Negative Negative 9:02 AM EDT [facility] Bisoprolol Negative Negative 06/14/2025 9:02 AM EDT [facility] Bupropion Negative Negative 06/14/2025 9:02 AM EDT [facility] Butalbital Negative Negative 06/14/2025 9:02 AM EDT [facility] Carbamazepine Negative Negative 06/14/2025 9:02 AM EDT [facility] Carisoprodol Negative Negative 06/14/2025 9:02 AM EDT [facility] Chlorpheniramine Negative Negative 06/14/20 9:02 AM EDT [facility] Citalopram Negative Negative 06/14/2025 9:02 AM EDT [facility] Clindamycin Negative Negative 06/14/2025 9:02 AM EDT [facility] Clonidine Negative Negative 06/14/2025 9:02 AM EDT [facility] Clopidogrel / Ticlopidine Negative Negative 06/14/2025 9:02 AM EDT [facility] Cocaethylene Negative Negative 06/14/2025 9:02 AM EDT [facility] Cocaine Negative Negative 06/14/2025 9:02 AM EDT [facility] Codeine Negative Negative 06/14/2025 9:02 AM EDT [facility] Cyclobenzaprine Negative Negative 9:02 AM EDT [facility] Desvenlafaxine Negative Negative 06/14/2025 9:02 AM EDT [facility] Dextromethorphan Negative Negative 06/14/20 9:02 AM EDT [facility] Diazepam Negative Negative 06/14/2025 9:02 AM EDT [facility] Diltiazem Negative Negative 06/14/2025 9:02 AM EDT [facility] Diphenhydramine Negative Negative 9:02 AM EDT [facility] Doxepine Negative Negative 06/14/2025 9:02 AM EDT [facility] Doxylamine Negative Negative 06/14/2025 9:02 AM EDT [facility] EDDP-Methadone metabolite Negative Negative 06/14/2025 9:02 AM EDT [facility] Fentanyl Negative Negative 06/14/2025 9:02 AM EDT [facility] Fluconazole Negative Negative 06/14/2025 9:02 AM EDT [facility] Fluoxetine Negative Negative 06/14/2025 9:02 AM EDT [facility] Guaifenesin Negative Negative 06/14/2025 9:02 AM EDT [facility] Haloperidol Negative Negative 06/14/2025 9:02 AM EDT [facility] Heroin/6-MARY Negative Negative 06/14/2025 9:02 AM EDT [facility] Hydrocodone Negative Negative 06/14/2025 9:02 AM EDT [facility] Hydroxyzine / Cetirizine metabolite Negative Negative 06/14/2025 9:02 AM EDT [facility] Ibuprofen Negative Negative 06/14/2025 9:02 AM EDT [facility] Imipramine Negative Negative 06/14/2025 9:02 AM EDT [facility] Ketamine Negative Negative 06/14/2025 9:02 AM EDT [facility] Labetolol Negative Negative 06/14/2025 9:02 AM EDT [facility] Lamotrigine Negative Negative 06/14/2025 9:02 AM EDT [facility] Levetiracetam Negative Negative 06/14/2025 9:02 AM EDT [facility] Lidocaine Negative Negative 06/14/2025 9:02 AM EDT [facility] MDA Negative Negative 06/14/2025 9:02 AM EDT [facility] MDMA Negative Negative 06/14/2025 9:02 AM EDT [facility] Memantine Negative Negative 06/14/2025 9:02 AM EDT [facility] Meperidine Negative Negative 06/14/2025 9:02 AM EDT [facility] Meprobamate Negative Negative 06/14/2025 9:02 AM EDT [facility] Metaxalone Negative Negative 06/14/2025 9:02 AM EDT [facility] Methamphetamine Negative Negative 9:02 AM EDT [facility] Methocarbamol Negative Negative 06/14/2025 9:02 AM EDT [facility] Methylecgonine Negative Negative 06/14/2025 9:02 AM EDT [facility] Metoclopramide Negative Negative 06/14/2025 9:02 AM EDT [facility] Metoprolol Negative Negative 06/14/2025 9:02 AM EDT [facility] Metronidazole Negative Negative 06/14/2025 9:02 AM EDT [facility] Midazolam Negative Negative 06/14/2025 9:02 AM EDT [facility] Midazolam Metabolite Negative Negative 06/14/2025 9:02 AM EDT [facility] Mirtazapine Negative Negative 06/14/2025 9:02 AM EDT [facility] Misc Test Result Negative Negative 06/14/20 9:02 AM EDT [facility] Naproxen Negative Negative 06/14/2025 9:02 AM EDT [facility] Nefazodone Negative Negative 06/14/2025 9:02 AM EDT [facility] Norfentanyl Negative Negative 06/14/2025 9:02 AM EDT [facility] Nortriptyline Negative Negative 06/14/2025 9:02 AM EDT [facility] Ordanstron Negative Negative 06/14/2025 9:02 AM EDT [facility] Oxcarbazepine Negative Negative 06/14/2025 9:02 AM EDT [facility] Oxycodone Negative Negative 06/14/2025 9:02 AM EDT [facility] Paroxethine Negative Negative 06/14/2025 9:02 AM EDT [facility] Phenobarbital Negative Negative 06/14/2025 9:02 AM EDT [facility] Phentermine Negative Negative 06/14/2025 9:02 AM EDT [facility] Phenytoin Negative Negative 06/14/2025 9:02 AM EDT [facility] Primidone Negative Negative 06/14/2025 9:02 AM EDT [facility] Promethazine Negative Negative 06/14/2025 9:02 AM EDT [facility] Propofol Negative Negative 06/14/2025 9:02 AM EDT [facility] Propranolol Negative Negative 06/14/2025 9:02 AM EDT [facility] Quetiapine Negative Negative 06/14/2025 9:02 AM EDT [facility] Quinine Negative Negative 06/14/2025 9:02 AM EDT [facility] Rantidine Negative Negative 06/14/2025 9:02 AM EDT [facility] Sertraline Negative Negative 06/14/2025 9:02 AM EDT [facility] Spironolactone Positive(A) Negative 9:02 AM EDT [facility] Tizanidine Negative Negative 06/14/2025 9:02 AM EDT [facility] Topiramate Negative Negative 06/14/2025 9:02 AM EDT [facility] Tramadol Negative Negative 06/14/2025 9:02 AM EDT [facility] Trazadone/ Trazadone metabolite Negative Negative 06/14/2025 9:02 AM EDT [facility] Trimethoprim Negative Negative 06/14/2025 9:02 AM EDT [facility] Valproic Acid Negative Negative 06/14/2025 9:02 AM EDT [facility] Venlafaxine Negative Negative 06/14/2025 9:02 AM EDT [facility] Verapamil Negative Negative 06/14/2025 9:02 AM EDT [facility] Zolpidem Negative Negative 06/14/2025 9:02 AM EDT [facility] Xylazine Negative Negative 06/14/2025 9:02 AM EDT [facility] Urine Urine specimen obtained by clean catch procedure / Unknown Non-blood Collection / Unknown 06/13/2025 6:50 AM EDT 06/13/2025 7:26 AM EDT us Zarina INTERIANO LAB URINE ORDERABLES Final Resu lt [facility] [address] [place] [address] * Phosphorus, Plasma (06/13/2025 6:50 AM EDT) Phosphorus, Plasma 3.5 2.5 - 4.5 mg/dL 06/13/2025 7:56 AM EDT [facility] Blood Venous blood specimen / Unknown Venipuncture / Unknown 06/13/2025 6:50 AM EDT 06/13/2025 7:25 AM EDT us Moustapha Katz MD LAB BLOOD ORDERABLES Final Res ult [facility] [address] [place] [address] * Dexa Bone Density (06/08/2025 8:35 AM EDT) Anatomical Region Laterality Modality L-spine Radiographic Liseth ging Narrative 06/17/2025 10:07 PM EDT [facility] [address] [facility] [address], [place] [address] DXA Bone Densitometry Report: [06/08/2025] BMD test performed using the [employer] DXA System (analysis version: 14.10) manufactured by [employer]. REFERRING PROVIDER: Dr. Moustapha Katz MD CLINICAL [...] 3 Months Insurance ANTHEM ANTHEM Care Teams Strategy Intern Relationship Specialty Start Date End Date Chris Medel MD [address] [place] [address] PCP - General 03/14/25 Ruma Hernández APRN [address] [facility] [address] [place] [address] Referring Physician Gastroenterology 07/30/23
--- OUTSIDE RECORDS SUMMARY | 2025-07-04 07:46 | XMS_ITS | Encounter Summary ---
Author Organization Healthcare Address [address] [place] [address] Care Team Providers Care Oil Processing Technician Name Role Phone Urban Brantley DO Primary Care Provider [phone] Ruma Hernández BUDGET DIRECTOR Unavailable [phone] Chris Medel MD Primary Care Provider [phone] Encounter Details Date Type Department Care Team (Late st Contact Info) Description 03/05/2025 Results Follow-Up [facility] [address] [facility] [address] [place] [address] Meaghan Le, RN HOSPITAL LIVER [id number] [address] [place] [id number] Social History Tobacco Use Types Packs/Day Years [...] Recorded Patient Health Questionnaire-2 Score 0 03/14/2025 [facility] [place] of Occupat ional Health - Occupational Stress [...] Description 07/11/2025 9:00 AM EDT Clinical Support [facility] [place] [address] [place] [address] 07/11/2025 9:30 AM EDT Social Work [facility] [place] [address] [place] [address] [place] [address] 07/11/2025 10:30 AM EDT Office Visit [facility] [place] [address] [place] [address] Portia Maguire MD [address] [place] [address] 10/03/2025 12:45 PM EST Office Visit Medical Office Building Urology [address] [facility], [address] [place] [address] Suhail Brock MD [address] [place] [address] 10/18/2025 4:20 PM EST Office Visit [facility] [place] [facility] [address] [facility], [address] [place] [address] Moustapha Katz MD [address] [facility] [address] [place] [address] documented as of this encounter [...] documented as of this encounter Care Teams Oil Processing Technician Relationship Specialty Start Date End Date Urban Brantley DO [address] [place] [address] PCP - General 07/30/23 03/13/25 Chris Medel MD [address] [place] [address] PCP - General 03/14/25 Ruma Hernández APRN [address] [place] [address] Referring Physician Gastroenterology 07/30/23 documented as of this encounter
--- OUTSIDE RECORDS SUMMARY | 2025-07-04 07:46 | XMS_ITS | Encounter Summary ---
Author Organization Healthcare Address [address] [place] [address] Care Team Providers Care Bobbin Hauler Name Role Phone Urban Brantley DO Primary Care Provider [phone] Ruma Hernández SUPERVISOR MALTED MILK Unavailable [phone] Chris Medel MD Primary Care Provider [phone] Encounter Details Date Type Department Care Team (Late st Contact Info) Description 05/09/2023 Orders Only External Location [address] [place] [address] Provider, External Social History Tobacco Use Types [...] Description 07/11/2025 9:00 AM EDT Clinical Support [facility] [place] [address] [address] 07/11/2025 9:30 AM EDT Social Work [facility] [place] [address] [address] [place] [address] 07/11/2025 10:30 AM EDT Office Visit [facility] [address] [place] [address] Portia Maguire MD [address] [place] [address] 10/03/2025 12:45 PM EST Office Visit Medical Office Building Urology [address] [facility], [address] [place] [address] Suhail Brock MD [address] [place] [address] 10/18/2025 4:20 PM EST Office Visit [facility] [place] [facility] [address], [address] [place] [address] Moustapha Katz MD [address] [place] [address] documented as of this encounter [...] documented as of this encounter Care Teams Bobbin Hauler Relationship Specialty Start Date End Date Urban Brantley DO [address] [place] [address] PCP - General 07/30/23 03/13/25 Chris Medel MD [address] [place] [address] PCP - General 03/14/25 Ruma Hernández APRN [address] [place] [address] [address] [place] [address] Referring Physician Gastroenterology 07/30/23 documented as of this encounter
--- OUTSIDE RECORDS SUMMARY | 2025-07-04 07:46 | XMS_ITS | Encounter Summary ---
Author Organization Healthcare Address [address] [place] [address] Care Team Providers Care Control Valve Mechanic Name Role Phone Ruma Hernández PUPPY WALKER Unavailable [phone] Chris Medel MD Primary Care Provider [phone] Encounter Details Date Type Department Care Team (Late st Contact Info) Description 06/21/2025 Results Follow-Up [facility] [address] [place] [address] Meaghan Le, RN [facility] LIVER [id number] [address] [place] [address] Social History Tobacco Use Types [...] 02/19/2025 How often do you attend [facility] or oriental orthodox services? More than [...] in a fci (including now)? No 02/19/2025 Humiliation, Afraid, Rape, [...] Not hard at all 06/15/2025 [facility] [place] of Occupat ional Health - Occupational Stress [...] living in a fci (including now)? No 06/15/2025 CAGE ASSESSMENT Answer [...] drink first t luisa in the morning (EYE-PROJECT MANAGEMENT INTERN) to steady your nerves or to get rid of a hangover? 0 06/14/2025 CAGE Questionnaire Score 0 025 Utilities Answer Date Recorded In the past 12 months has [employer], gas, oil, or water [employer] threatened to shut off services in your [...] going to have a para tomorrow at [facility]. He is only on 40/100 - if they have to drain him do you want to increase his diuretics? documented in this encounter Plan of Treatment Upcoming Encounters Date Type Department Care Team (Late st Contact Info) Description 07/11/2025 9:00 AM EDT Clinical Support [facility] [address] [facility] [address] [place] [address] 07/11/2025 9:30 AM EDT Social Work [facility] [address] [place] [address] Liliane Jacobs [place], [place] [id number] 07/11/2025 10:30 AM EDT Office Visit [facility] [address] [place] [address] Portia Maguire MD [address] [facility] [address] [place] [address] 10/03/2025 12:45 PM EST Office Visit Medical Office Building Urology [address] [facility], [address] [place] [address] Suhail Brock MD [address] [facility] [address] [place] [address] 10/18/2025 4:20 PM EST Office Visit [facility] [address] [facility], [address] [place] [address] Moustapha Katz MD [address] [facility] [address] [place] [address] documented as of [...] documented as of this encounter Care Teams Control Valve Mechanic Relationship Specialty Start Date End Date Chris Medel MD [address] [place] [address] PCP - General 03/14/25 Ruma Hernández APRN [address] [place] [address] Referring Physician Gastroenterology 07/30/23 documented as of this encounter
--- OUTSIDE RECORDS SUMMARY | 2025-07-04 07:46 | XMS_ITS | Encounter Summary ---
Author Organization Healthcare Address [address] [place] [address] Care Team Providers Care Avionics System Engineer Name Role Phone Ruma Hernández OPEN HEARTH LABORER Unavailable [phone] Chris Medel MD Primary Care Provider [phone] Encounter Details Date Type Department Care Team (Late st Contact Info) Description 06/25/2025 Telephone [facility] [address] [place] [address] Meaghan Le, RN [facility] LIVER [id number] [address] [place] [address] Social History Tobacco Use Types [...] week 02/19/2025 How often do you attend [facility] or moravian services? More than 4 times per year 02/19/2025 Do you belong to any clubs o r organizations such as jainism groups, unions, Tre[employer] or athletic groups, or school groups? Yes [...] any time in the past 12 m [facility], were you homeless or living in a [...] and heating? Not hard at all 06/15/2025 [facility] [place] of Occupat ional Health - Occupational Stress [...] any time in the past 12 m [facility], were you homeless or living in a [...] drink first t luisa in the morning (EYE-ELEMENTARY SCHOOL MUSIC TEACHER) to steady your nerves or to get rid of a hangover? 0 06/14/2025 CAGE Questionnaire Score 0 025 Utilities Answer Date Recorded In the past 12 months has th [employer], gas, oil, or water [employer] threatened to shut off services in your [...] 07/11/2025 9:00 AM EDT Clinical Support [facility] [address] [facility] [address] [place] [address] 07/11/2025 9:30 AM EDT Social Work [facility] [address] [facility] [address] [place] [address] Liliane Jacobs [place], [place] [id number] 07/11/2025 10:30 AM EDT Office Visit [facility] [address] [facility] [address] [place] [address] Portia Maguire MD [address] [facility] [address] [place] [address] 10/03/2025 12:45 PM EST Office Visit Medical Office Building Urology [address] [facility] [place] [address] Suhail Brock MD [address] [facility] [address] [place] [address] 10/18/2025 4:20 PM EST Office Visit [facility] [address] [facility], [address] [place] [address] Moustapha Katz MD [address] [facility] [address] [place] [address] documented as of this encounter [...] documented as of this encounter Care Teams Avionics System Engineer Relationship Specialty Start Date End Date Chris Medel MD [address] [place] [address] PCP - General 03/14/25 Ruma Hernández APRN [address] [place] [address] Referring Physician Gastroenterology 07/30/23 documented as of this encounter
--- OUTSIDE RECORDS SUMMARY | 2025-07-04 07:46 | XMS_ITS | Encounter Summary ---
Author Organization Healthcare Address [address] [place] [address] Care Team Providers Care Screen Machine Operator Name Role Phone Ruma Hernández SALES PROJECT ENGINEER Unavailable [phone] Chris Medel MD Primary Care Provider [phone] Encounter Details Date Type Department Care Team (Late st Contact Info) Description 06/13/2025 Telephone [facility] [address] [place] [address] Zeferino Trejo, PharmD Social History [...] How often do you attend chur or scientology services? More than 4 times [...] drink first t luisa in the morning (EYE-SIZE CUTTER) to steady your nerves or to get rid of a hangover? 0 06/14/2025 CAGE Questionnaire Score 0 025 Utilities Answer Date Recorded In the past 12 months has th [employer], gas, oil, or water company threatened to [...] Description 07/11/2025 9:00 AM EDT Clinical Support [facility] [place] [address] [facility] [address] [place] [address] 07/11/2025 9:30 AM EDT Social Work [facility] [place] [address] [place] [address] ReynaldoLiliane reyes [place], [place] [id number] 07/11/2025 10:30 AM EDT Office Visit [facility] [place] [address] [facility] [address] [place] [address] Portia Maguire MD [address] [facility] [address] [place] [address] 10/03/2025 12:45 PM EST Office Visit Medical Office Building Urology [address] [facility], [address] [place] [address] Suhail Brock MD [address] [facility] [address] [place] [address] 10/18/2025 4:20 PM EST [facility] Visit [facility] [address] [facility], [address] [place] [address] Moustapha Katz MD [address] [facility] [address] [place] [address] documented as of this encounter [...] documented as of this encounter Care Teams Screen Machine Operator Relationship Specialty Start Date End Date Chris Medel MD [address] [place] [address] PCP - General 03/14/25 Ruma Hernández APRN [address] [facility] [address] [place] [address] Referring Physician Gastroenterology 07/30/23 documented as of this encounter
--- OUTSIDE RECORDS SUMMARY | 2025-07-04 07:46 | XMS_ITS | Encounter Summary ---
Author Organization Healthcare Address [address] [place] [address] Care Team Providers Care Fish And Wildlife Scientific Aid Name Role Phone Urban Brantley DO Primary Care Provider [phone] Ruma Hernández FOREST PRODUCTS GATHERER Unavailable [phone] Chris Medel MD Primary Care Provider [phone] Encounter Details Date Type Department Care Team (Late st Contact Info) Description 03/22/2023 Orders Only External Location [address] [place] [address] Provider, External Social History Tobacco Use Types [...] Description 07/11/2025 9:00 AM EDT Clinical Support [facility] [place] [address] [address] 07/11/2025 9:30 AM EDT Social Work [facility] [place] [address] [address] [place] [address] 07/11/2025 10:30 AM EDT Office Visit [facility] [address] [place] [address] Portia Maguire MD [address] [facility] [address] [place] [address] 10/03/2025 12:45 PM EST Office Visit Medical Office Building Urology [address] [facility], [address] [place] [address] Suhail Brock MD [address] [place] [address] 10/18/2025 4:20 PM EST Office Visit [facility] [place] [facility] [address] [facility], [address] [place] [address] Moustapha Katz MD [address] [facility] [address] [place] [address] documented as of this encounter [...] documented as of this encounter Care Teams Fish And Wildlife Scientific Aid Relationship Specialty Start Date End Date Urban Brantley DO [address] [place] [address] PCP - General 07/30/23 03/13/25 Chris Medel MD [address] [place] [address] PCP - General 03/14/25 Ruma Hernández APRN [address] [place], [place] [address] [address] Referring Physician Gastroenterology 07/30/23 documented as of this encounter
--- OUTSIDE RECORDS SUMMARY | 2025-07-04 07:47 | XMS_ITS | Encounter Summary ---
Author Organization Healthcare Address [address] [place] [address] Care Team Providers Care Dough Brake Machine Operator Name Role Phone Urban Brantley DO Primary Care Provider [phone] Ruma Hernández LIVESTOCK TRUCKER Unavailable Chris Medel MD Primary Care Provider [phone] Encounter Details Date Type Department Care Team (Late st Contact Info) Description 12/30/2023 Orders Only External Location [address] [place] [address] Urban Stafford MD 1210 [facility] [address] [place] [address] Social History Tobacco Use Types Packs/Day [...] Support [facility] [place] [address] [facility] [address] [place] [address] 07/11/2025 9:30 AM EDT Social Work [facility] [place] [address] [facility] [address] [place] [address] Liliane Jacobs [place], [place] [id number] 07/11/2025 10:30 AM EDT Office Visit [facility] [place] [address] [facility] [address] [place] [address] Portia Maguire MD [address] [facility] [address] [place] [address] 10/03/2025 12:45 PM EST Office Visit Medical Office Building Urology [address] [facility], [address] [place] [address] Suhail Brock MD [address] [place] [address] 10/18/2025 4:20 PM EST Office Visit [facility] [place] [facility] [address] [facility], [address] [place] [address] Moustapha Katz MD [address] [facility] [address] [place] [address] documented as of this encounter [...] documented as of this encounter Care Teams Dough Brake Machine Operator Relationship Specialty Start Date End Date Urban Brantley DO [address] [place] [address] PCP - General 07/30/23 03/13/25 Chris Mdeel MD [address] [place] [address] PCP - General 03/14/25 Ruma Hernández APRN [address] [address] Referring Physician Gastroenterology 07/30/23 documented as of this encounter
--- OUTSIDE RECORDS SUMMARY | 2025-07-04 07:47 | XMS_ITS | Encounter Summary ---
Author Organization Healthcare Address [address] [place] [address] Care Team Providers Care Direct Marketing Specialist Name Role Phone Ruma Hernández LEAD INSTRUCTOR/FLIGHT ATTENDANT Unavailable [phone] Chris Medel MD Primary Care Provider [phone] Encounter Details Date Type Department Care Team (Late st Contact Info) Description 06/05/2025 Results Follow-Up [facility] [address] [place] [address] Meaghan Le, RN [facility] LIVER [id number] [address] [place] [address] Social History Tobacco Use Types [...] How often do you attend chur or congregational services? More than 4 times [...] Recorded Patient Health Questionnaire-2 Score 0 06/08/2025 [facility] [place] - Occupational Stress Questionnaire [...] EDT Clinical Support [facility] [address] [place] [address] 07/11/2025 9:30 AM EDT Social Work [facility] [place] [address] [place] [address] [place] [address] 07/11/2025 10:30 AM EDT Office Visit [facility] [place] [address] [place] [address] Portia Maguire MD [address] [place] [address] 10/03/2025 12:45 PM EST Office Visit Medical Office Building Urology [address] [facility], [address] [place] [address] Suhail Brock MD [address] [place] [address] 10/18/2025 4:20 PM EST Office Visit [facility] [address] , [address] [place] [address] Moustapha Katz MD [address] [place] [address] documented as of this [...] as of this encounter Care Teams Direct Marketing Specialist Relationship Specialty Start Date End Date Chris Medel MD [address] [place] [address] PCP - General 03/14/25 Ruma Hernández APRN [address] [place] [address] [address] [place], [place] [address] Referring Physician Gastroenterology 07/30/23 documented as of this encounter
--- OUTSIDE RECORDS SUMMARY | 2025-07-04 07:47 | XMS_ITS | Encounter Summary ---
Author Organization Healthcare Address [address] [place] [address] Care Team Providers Care Ethnoarchaeologist Name Role Phone Ruma Hernández NEEDLE FELT MAKING MACHINE OPERATOR Unavailable [phone] Chris Medel MD Primary Care Provider [phone] Encounter Details Date Type Department Care Team (Late st Contact Info) Description 06/06/2025 Telephone [facility] [address] [place] [address] Mell Masterson, RN [facility]-DIAGNOSTIC RADIOLOGY Social History [...] week 02/19/2025 How often do you attend [facility] or taoist services? More than 4 times [...] often do you attend chur ch or taoist services? More than 4 times [...] and heating? Not hard at all 06/15/2025 [facility] [place] of Occupat ional Health - Occupational Stress [...] drink first t luisa in the morning (EYE-SUIT MAKER) to steady your nerves or to get rid of a hangover? 0 06/14/2025 CAGE Questionnaire Score 0 025 Utilities Answer Date Recorded In the past 12 months has th [employer], gas, oil, or water company threatened to [...] Description 07/11/2025 9:00 AM EDT Clinical Support [facility] [place] [address] [place] [address] 07/11/2025 9:30 AM EDT Social Work [facility] [place] [address] [place] [address] [place] [address] 07/11/2025 10:30 AM EDT Office Visit [facility] [place] [address] [place] [address] Portia Maguire MD [address] [place] [address] 10/03/2025 12:45 PM EST Office Visit Medical Office Building Urology [facility] [address] [facility], [address] [place] [address] Suhail Brock MD [address] [place] [address] 10/18/2025 4:20 PM EST Office Visit [facility] [address] , [address] [place] [address] Moustapha Katz MD [address] [place] [address] documented as of this encounter [...] documented as of this encounter Care Teams Ethnoarchaeologist Relationship Specialty Start Date End Date Chris Medel MD [address] [place] [address] PCP - General 03/14/25 Ruma Hernández APRN [address] [facility] [address] [place] [address] Referring Physician Gastroenterology 07/30/23 documented as of this encounter
--- OUTSIDE RECORDS SUMMARY | 2025-07-04 07:47 | XMS_ITS | Encounter Summary ---
Author Organization Healthcare Address [address] [place] [address] Care Team Providers Care Tool Hardener Name Role Phone Ruma Hernández PROPERTY DISPOSAL MANAGER Unavailable [phone] Chris Medel MD Primary Care Provider [phone] Encounter Details Date Type Department Care Team (Late st Contact Info) Description 05/22/2025 Telephone [facility] [address] [place] [address] Meaghan Le, RN [facility] LIVER [id number] [address] [place] [address] Social History Tobacco Use Types [...] Recorded Patient Health Questionnaire-2 Score 0 03/14/2025 [facility] - Occupational Stress Questionnaire [...] Clinical Support [facility] [place] [address] [facility] [address] [place] [address] 07/11/2025 9:30 AM EDT Social Work [facility] [place] [address] [facility] [address] [place] [address] [place] [address] 07/11/2025 10:30 AM EDT Office Visit [facility] [place] [address] [facility] [address] [place] [address] Portia Maguire MD [address] [facility] [address] [place] [address] 10/03/2025 12:45 PM EST Office Visit Medical Office Building Urology [address] [facility], [address] [place] [address] Suhail Brock MD [address] [facility] [address] [place] [address] 10/18/2025 4:20 PM EST Office Visit [facility] [address] [facility], [address] [place] [address] Moustapha Katz MD [address] [facility] [address] [place] [address] documented as of this encounter [...] documented as of this encounter Care Teams Tool Hardener Relationship Specialty Start Date End Date Chris Medel MD [address] [place], [place] [address] PCP - General 03/14/25 Ruma Hernández APRN [address] [place] [address] Referring Physician Gastroenterology 07/30/23 documented as of this encounter
--- OUTSIDE RECORDS SUMMARY | 2025-07-04 07:47 | XMS_ITS | Encounter Summary ---
Author Organization Healthcare Address [address] [place] [address] Care Team Providers Care Home Organizer Name Role Phone Ruma Hernández MEDICAL LAB DIRECTOR Unavailable [phone] Chris Medel MD Primary Care Provider [phone] Encounter Details Date Type Department Care Team [...] often do you attend chur ch or baptist services? More than 4 times per year [...] Recorded Patient Health Questionnaire-2 Score 0 03/14/2025 [facility] - Occupational Stress Questionnaire Answer Date [...] the past 12 months has th e [employer], gas, oil, or water company threatened to [...] EDT Clinical Support [facility] [place] [address] [place] [address] 07/11/2025 9:30 AM EDT Social Work [facility] [place] [address] [place] [address] [place] [address] 07/11/2025 10:30 AM EDT [facility] [address] [place] [address] Portia Maguire MD [address] [facility] [address] [place] [address] 10/03/2025 12:45 PM EST Office Visit Medical Office Building Urology [address] [facility], [address] [place] [address] Suhail Brock MD [address] [facility] [address] [place] [address] 10/18/2025 4:20 PM EST Office Visit [facility] [place] [facility] [address] [facility], [address] [place] [address] Moustapha Katz MD [address] [facility] [address] [place] [address] documented as of this [...] documented as of this encounter Care Teams Home Organizer Relationship Specialty Start Date End Date Chris Medel MD [address] [place] [address] PCP - General 03/14/25 Ruma Hernández APRN 17[address] [facility] [address] [place] [address] Referring Physician Gastroenterology 07/30/23 documented as of this encounter
--- OUTSIDE RECORDS SUMMARY | 2025-07-04 07:47 | XMS_ITS | Encounter Summary ---
Author Organization Healthcare Address [address] [place] [address] Care Team Providers Care Piledriver Carpenter Name Role Phone Ruma Hernández MORTGAGE PROCESSING MANAGER Unavailable [phone] Chris Medel MD Primary Care Provider [phone] Encounter Details Date Type Department Care Team (Late st Contact Info) Description 06/07/2025 Telephone [facility] [address] [facility], [address] [place] [address] Mary Chatman, [facility] [...] How often do you attend chur or gnosticism services? More than 4 times per year 02/19/2025 Do you belong to any clubs o r organizations such as denominational groups, unions, fraternal or athletic groups, or [...] Recorded Patient Health Questionnaire-2 Score 0 06/08/2025 [facility] of Occupat ional Health - [...] Faxed record request for lab results to [facility] Medical Records F documented in this encounter Plan of Treatment Upcoming Encounters Date Type Department Care Team (Late st Contact Info) Description 07/11/2025 9:00 AM EDT Clinical Support [facility] [place] [address] [facility] [address] [place] [address] 07/11/2025 9:30 AM EDT Social Work [facility] [place] [address] [facility] [address] [place] [address] Liliane Jacobs [place], [place] [address] 07/11/2025 10:30 AM EDT Office Visit [facility] [place] [address] [facility] [address] [place] [address] Portia Maguire MD [address] [facility] [address] [place] [address] 10/03/2025 12:45 PM EST Office Visit Medical Office Building Urology [address] [facility], [address] [place] [address] Suhail Brock MD [address] [facility] [address] [place] [address] 10/18/2025 4:20 PM EST Office Visit [facility] [place] [facility] [address] [facility], [address] [place] [address] Moustapha Katz MD [address] [facility] [address] [place] [address] documented as of this encounter [...] documented as of this encounter Care Teams Piledriver Carpenter Relationship Specialty Start Date End Date Chris Medel MD [address] [place] [address] PCP - General 03/14/25 Ruma Hernández APRN 1780 [facility] 202 [place] [address] Referring Physician Gastroenterology 07/30/23 documented as of this encounter
--- OUTSIDE RECORDS SUMMARY | 2025-07-04 07:47 | XMS_ITS | Encounter Summary ---
Author Organization Healthcare Address [address] [place] [address] Care Team Providers Care Information Resources Director Name Role Phone Ruma Hernández SALES ACCOUNT MANAGER Unavailable [phone] Chris Medel MD Primary Care Provider [phone] Encounter Details Date Type Department Care Team (Late st Contact Info) Description 06/29/2025 Results Follow-Up [facility] Transplant Center [address] [place] [address] Meaghan Le, RN [facility] LIVER [id number] [address] [place] [address] Social History Tobacco Use Types [...] [facility] or pentecostalism services? More than 4 times [...] often do you attend chur ch or pentecostalism services? More than 4 times [...] and heating? Not hard at all 06/15/2025 [facility] of Occupat ional Health - Occupational Stress [...] drink first t luisa in the morning (EYE-RESEARCH QUALITY ASSURANCE ANALYST) to steady your nerves or to get rid of a hangover? 0 06/14/2025 CAGE Questionnaire Score 0 025 Utilities Answer Date Recorded In the past 12 months has th [email or web address], gas, oil, or water [employer] threatened to shut off services in your [...] Note - Portia Maguire MD - 07/03/2025 2:58 PM EDT MELD 3.0: 21 at 06/27/2025 12:00 AM MELD-Na: 19 at 06/27/2025 12:00 AM Calculated from: Serum Creatinine: 0.6 mg/dL (Using min of 1 mg/dL) at 06/27/2025 12:00 AM Serum Sodium: 135 mEq/L at 06/27/2025 12:00 AM Total Bilirubin: 4.6 mg/dL at 06/27/2025 12:00 AM Serum Albumin: 2.3 g/dL at 06/27/2025 12:00 AM INR(ratio): 1.68 at 06/27/2025 12:00 AM Age at listin years Sex: Male at 06/27/2025 12:00 AM * Result Encounter Note - Meaghan Le RN - 06/29/2025 12:04 PM EDT MELD labs documented in this encounter Plan of Treatment Upcoming Encounters Date Type Department Care Team (Late st Contact Info) Description 07/11/2025 9:00 AM EDT Clinical Support [facility] [place] [address] [place] [address] 07/11/2025 9:30 AM EDT Social Work [facility] [place] [address] [place] [address] [place] [address] 07/11/2025 10:30 AM EDT Office Visit [facility] [place] [address] [place] [address] Portia Maguire MD [address] [place] [address] 10/03/2025 12:45 PM EST Office Visit Medical Office Building Urology [address] [facility], [address] [place] [address] Suhail Brock MD [address] [place] [address] 10/18/2025 4:20 PM EST Office Visit [facility] [place] [facility] [address] [facility], [address] [place] [address] Moustapha Katz MD [address] [facility] [address] [place] [address] documented as of this encounter [...] documented as of this encounter Care Teams Information Resources Director Relationship Specialty Start Date End Date Chris Medel MD [address] [place] [address] PCP - General 03/14/25 Ruam Hernández APRN [facility]0 [facility] [address] [place], [place] [address] Referring Physician Gastroenterology 07/30/23 documented as of this encounter
[2025-07-04 08:43] LABS: Hematocrit 33.5 % (42.0-52.0); Hemoglobin 11.0 g/dL (14.1-18.0); Mean Corpuscular HGB Conc 32.8 g/dL (31.8-35.4); Mean Corpuscular Hemoglobin 34.4 pg (27.0-31.2); Mean Corpuscular Volume 104.7 fl (80-94); Nucleated Red Blood Cells % 0 %; Platelet Count 82 K/mm3 (142-424); Red Blood Count 3.20 M/mm3 (4.60-6.20); Red Cell Distribution Width-SD 63.8 fL; White Blood Count 3.8 K/mm3 (4.8-10.8)
[2025-07-04 08:49] LABS: Activated Partial Thrombo Time 38.1 seconds (22.8-30.6); INR 1.71 (0.9-1.1); Prothrombin Time 18.2 seconds (10.1-12.5)
[2025-07-04 09:04] LABS: Chloride 110 mmol/L (98-107)
[2025-07-04 09:04] LABS: Albumin Level 2.3 g/dl (3.5-5.0); Chloride 110 mmol/L (98-107); Potassium 4.8 mmoL/L (3.5-5.1); Sodium 137 mmol/L (136-145)
[2025-07-04 09:05] LABS: Albumin Level 2.3 g/dl (3.5-5.0); Potassium 4.9 mmoL/L (3.5-5.1); Sodium 136 mmol/L (136-145)
[2025-07-04 09:06] LABS: Blood Urea Nitrogen 14 mg/dl (9-20); Creatinine,Serum 0.70 mg/dl (0.66-1.25); Estimated Glomerular Filt Rate 114 ml/min (>60); GFR (African American) 137 ML/MIN (>60)
[2025-07-04 09:07] LABS: Alkaline Phosphatase 193 U/L (38-126); Blood Urea Nitrogen 14 mg/dl (9-20); Creatinine,Serum 0.70 mg/dl (0.66-1.25); Estimated Glomerular Filt Rate 114 ml/min (>60); GFR (African American) 137 ML/MIN (>60)
[2025-07-04 09:07] LABS: Alanine Aminotransferase 32 U/L (12-78); Albumin/Globulin Ratio 0.5 (1.1-1.8); Alkaline Phosphatase 193 U/L (38-126); Anion Gap 6.8 mEq/L (5-15); Aspartate Amino Transferase 47 U/L (17-59); Bilirubin,Total 5.1 mg/dl (0.2-1.3); Calcium 8.8 mg/dl (8.4-10.2); Carbon Dioxide 25 mmol/L (22.0-30.0); Globulin 4.3 g/dL (1.3-3.2); Glucose 104 mg/dl (74-100); Total Protein,Serum 6.6 g/dl (6.3-8.2)
[2025-07-04 09:08] LABS: Anion Gap 5.9 mEq/L (5-15); Calcium 8.7 mg/dl (8.4-10.2); Carbon Dioxide 25 mmol/L (22.0-30.0); Glucose 104 mg/dl (74-100); Phosphorous 3.9 mg/dl (2.5-4.5)
[2025-07-04 10:28] LABS: 25-OH Vitamin D, Total 58.8 ng/mL (30-100)
== END 2025-07-04 23:59 | disposition home or self-care (01) ==
PROVIDERS: Physician Assistant; PCP Family Medicine; Visit Provider Internal Medicine
DX: K72.90 Hepatic failure, unspecified without coma (principal); M81.8 Other osteoporosis without current pathological fracture
CPT/HCPCS: 36415; 80053; 80069; 82306; 84075; 84080; 85027; 85610; 85730

== ENCOUNTER 2025-07-18 08:02 | Outpatient (CLI) | payer BC, SELFPAY ==
--- OUTSIDE RECORDS SUMMARY | 2023-08-27 08:34 | XMS_ITS | Encounter Summary ---
[facility] [address] [place] [address] Care Team Providers Care Wheel Loader Operator Name Role Phone Karon Urban Jc DO Primary Care Provider +1 -[phone] Encounter Details Date Type Department Care Team (Late st Contact Info) Description 08/27/2023 8:34 AM EDT Hospital Encounter [facility] PULMONARY & CRITICAL CARE MEDICINE [address] [place] [phone] Social History Tobacco Use Types Packs/Day [...] on filedocumented in this encounter Care Teams Wheel Loader Operator Relationship Specialty Start Date End Date Urban Brantley DO [address] [place] [address] [place] [address] PCP - General Internal Medicine 03/22/23 documented as of this encounter
--- OUTSIDE RECORDS SUMMARY | 2025-06-08 08:35 | XMS_ITS | Encounter Summary ---
Author Organization Healthcare Address [address] [place] [address] Care Team Providers Care Billet Heater Name Role Phone Ruma Hernández TRANSITIONS RN CARE COORDINATOR Unavailable [phone] Chris Medel MD Primary Care Provider [phone] Encounter Details Date Type Department Care Team (Latest Contact Info) Description 06/08/2025 8:35 AM EDT - 06/08/2025 11:59 PM EDT Hospital Encounter [facility] [address] [facility] [facility], [address] [place] [address] Other osteoporosis without current pathological [...] week 02/19/2025 How often do you attend [facility] or jehovah's witness services? More than 4 times per year 02/19/2025 Do you belong to any clubs o r organizations such as lutheran groups, unions, [employer] or athletic groups, or school groups? Yes [...] How often do you attend chur or jehovah's witness services? More than 4 times per year [...] and heating? Not hard at all 06/15/2025 [facility] - Occupational Stress Questionnaire Answer [...] any time in the past [address] [facility], were you homeless or living in a snf (including now)? No 06/15/2025 CAGE ASSESSMENT Answer [...] drink first t luisa in the morning (EYE-RIB PULLER) to steady your nerves or to get rid of a hangover? 0 06/14/2025 CAGE Questionnaire Score 0 025 Utilities Answer Date Recorded In the past 12 months has [employer], gas, oil, or water [employer] threatened to shut off services in your [...] to Wednesday only) 24 capsule 5 06/10/2025 6 Calcium-Vitamin D (CALTRATE 600 PLUS-VIT D PO) Take 600 mg by mouth 2 times a day. carvedilol (Coreg) 3.125 MG tabletIndications :Cirrhosis of liver with ascites, unspecified hepatic cirrhosis type (CMS/HCC) Take 1 tablet (3.125 mg) by mouth 2 (two) times a day with meals. 60 tablet 11 09/13/2024 5 ergocalciferol (Vitamin D-2) 1.25 MG (88568 UT) capsule Take 1 capsule by mouth [...] Description 09/12/2025 8:30 AM EDT Clinical Support [facility] [address] [facility] [address] [place] [address] 09/12/2025 10:00 AM EDT Office Visit [facility] [address] [place] [address] Portia Maguire MD [address] [facility] [address] [place] [address] 10/03/2025 12:45 PM EST Office Visit Medical Office Building Urology [address] [facility], [address] [place] [address] Suhail Brock MD [address] [facility] [address] [place] [address] 10/18/2025 4:20 PM EST Office Visit [facility] [address] [facility], [address] [place] [address] Moustapha Katz MD [address] [facility] [facility] [address] [place] [address] documented as of this encounter Procedures Procedure Name Priority Date/Time Associated Diagnosis Comments DEXA BONE DENSITY Routine 06/08/2025 8:3 5 AM EDT Other osteoporosis without current pathological fracture documented in this encounter Results * Dexa Bone Density (06/08/2025 8:35 AM EDT) Anatomical Region Laterality Modality L-spine Radiographic Liseth ging Narrative 06/17/2025 10:07 PM EDT [facility] - [facility] [address] [address], [place] [address] DXA Bone Densitometry Report: [06/08/2025] BMD test performed using the [employer] DXA System (analysis version: 14.10) manufactured by [employer]. REFERRING PROVIDER: Dr. Moustapha Katz MD CLINICAL [...] documented as of this encounter Care Teams Billet Heater Relationship Specialty Start Date End Date Chris Medel MD [address] [place] [address] PCP - General 03/14/25 Ruma Hernández APRN [address] [facility] [address] [place] [address] Referring Physician Gastroenterology 07/30/23 documented as of this encounter
--- OUTSIDE RECORDS SUMMARY | 2025-06-08 12:20 | XMS_ITS | Encounter Summary ---
Author Organization [facility] Address [address] [place] [address] Care Team Providers Care Tube Rebuilder Name Role Phone Ruma Hernández INVESTIGATOR NARCOTICS Unavailable [phone] Chris Medel MD Primary Care Provider [phone] Reason for Referral * Consultation (Routine) - Authorized Specialty Diagnoses / Procedures Referred By Gianna reyes Referred To Contact Diagnoses Age-related osteoporosis without current pathological fracture Moustapha Katz MD [address] [place] [address] [place] [phone] Phone: tel: fax: Referral ID Status Reason Start Date Expiration Date V isits Requested Visits Authorized [id number] Authorized 06/08/2025 12/08/2026 1 1 Reason for Visit * Reason Comments Follow-up Encounter Details Date Type Department Care Team ([facility] st Contact Info) Description 06/08/2025 12:20 PM EDT Office Visit [facility] [place] [facility] [address] , [address] [place] [address] Moustapha Katz MD [address] [place] [address] Age-related osteoporosis without current pathological [...] often do you attend [facility] or church services? 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, MZ phenotype [id number]; was undergoing phlebotomy but this has been [...] XRT, renal stones, dental issues/scheduled dental procedures, wool hat flanger corticosteroid; No thyroid/parathyroid/kidney; No RA/organ transplant/GI disease [...] intake of Ca and take vit D 9227-8227 units daily, he has also been prescribed [...] diagnostic impressions, importance of compliance with treatment, wool hat flanger nature of condition, and need for continued [...] [facility] [1] Creatinine, Random, Urine Standing Status: [...] Description 09/12/2025 8:30 AM EDT Clinical Support [facility] [place] [address] [place] [address] 09/12/2025 10:00 AM EDT Office Visit [facility] [place] [address] [place] [address] Portia Maguire MD [address] [place] [address] 10/03/2025 12:45 PM EST Office Visit Medical Office Building Urology [address] [facility], [address] [place] [address] Suhail Brock MD [address] [place] [address] 10/18/2025 4:20 PM EST Office Visit [facility] [address] [facility], [address] [place] [address] Moustapha Katz MD [address] [facility] [address] [place] [address] Scheduled Orders Name Type Priority [...] documented as of this encounter Care Teams Tube Rebuilder Relationship Specialty Start Date End Date Chris Medel MD [address] [place] [address] PCP - General 03/14/25 Ruma Hernández APRN [address] [address] Referring Physician Gastroenterology 07/30/23 documented as of this encounter
--- OUTSIDE RECORDS SUMMARY | 2025-06-13 07:05 | XMS_ITS | Encounter Summary ---
Author Organization Healthcare Address [address] [place] [address] Care Team Providers Care Plaster Machine Tender Name Role Phone Ruma Hernández CLERICAL SECRETARY Unavailable [phone] Chris Medel MD Primary Care Provider [phone] Encounter Details Date Type Department Care Team (Latest Contact Info) Description 06/13/2025 7:05 AM EDT - 06/13/2025 9:55 AM EDT Hospital Encounter [facility] [address] [place] [address] Pre-liver transplant, listed Discharge Disposition: Home or [...] 02/19/2025 How often do you attend [facility] or bahai services? More than 4 times per year 02/19/2025 Do you belong to any clubs o r organizations such as hoahaoism groups, unions, [employer] or athletic groups, or school groups? Yes [...] How often do you attend [facility] or bahai services? More than 4 times per year 06/15/2025 Do you belong to any clubs o r organizations such as hoahaoism groups, unions, fraternal or athletic groups, or [...] time in the past 12 m [facility], were you homeless or living in a fdc (including now)? No 06/15/2025 CAGE ASSESSMENT Answer [...] drink first t luisa in the morning (EYE-DIRECT SUPPORT PROFESSIONAL) to steady your nerves or to get rid of a hangover? 0 06/14/2025 CAGE Questionnaire Score 0 025 Utilities Answer Date Recorded In the past 12 months has e [employer], gas, oil, or water [employer] threatened to shut off services in your [...] alcohol? Never 06/15/2025 9:39 AM EDT Lisa Gutéirrez R N Q2: How many drinks containing [...] mg by mouth 2 times a day. ergocalciferol (Vitamin D-2) 1.25 MG (48162 UT) capsule Take 1 capsule by mouth [...] by mouth 2 times a day. 01/15/2025 carvedilol (Coreg) 3.125 MG tabletIndications :Cirrhosis of liver with ascites, unspecified hepatic cirrhosis type (CMS/HCC) Take 1 tablet (3.125 mg) by mouth 2 (two) times a day with meals. 60 tablet 11 09/13/2024 5 spironolactone (Aldactone) 50 MG tabletIndications :Bilateral leg edema,Cirrhosis of liver with ascites, unspecified hepatic cirrhosis type (CMS/HCC),Other ascites Take 2 tablets by mouth daily. 180 each 3 03/14/2025 5 documented as of this encounter Plan of Treatment Upcoming Encounters Date Type Department Care Team (Late st Contact Info) Description 09/12/2025 8:30 AM EDT Clinical Support [facility] [address] [place] [address] 09/12/2025 10:00 AM EDT Office Visit [facility] [address] [place] [address] Portia Maguire MD [address] [place] [address] 10/03/2025 12:45 PM EST Office Visit Medical Office Building Urology [address], [address] [place] [address] Suhail Brock MD [address] [place] [address] 10/18/2025 4:20 PM EST Office Visit [facility] [address], [address] [place] [address] Moustapha Katz MD [address] [place] [address] documented as of this encounter [...] documented as of this encounter Care Teams Plaster Machine Tender Relationship Specialty Start Date End Date Chris Medel MD [address] [place] [address] PCP - General 03/14/25 Ruma Hernández APRN [address] [facility] [address] [place] [address] Referring Physician Gastroenterology 07/30/23 documented as of this encounter
--- OUTSIDE RECORDS SUMMARY | 2025-06-13 08:00 | XMS_ITS | Encounter Summary ---
Author Organization Healthcare Address [address] [place] [address] Care Team Providers Care Pilot Plant Technician Name Role Phone Ruma Hernández STRATEGY INTERN Unavailable [phone] Chris Medel MD Primary Care Provider [phone] Reason for Referral * Imaging (Urgent) - Closed Specialty Diagnoses / Procedures Referred By Gianna reyes Referred To Contact Radiology Diagnoses Alcoholic cirrhosis, unspecified whether ascites present (CMS/HCC) Procedures US Liver Screen Portia Maguire MD [address] [place] [address] Phone: tel: fax: Referral ID Status Reason Start Date Expiration Date Visits Re quested Visits Authorized [id number] Closed 06/13/2025 12/13/2026 1 1 Reason for Visit * Reason Comments Pre-Liver Txp Follow-up Encounter Details Date Type Department Care Team (Latest Contact Info) Description 06/13/2025 8:00 AM EDT Office Visit [facility] [address] [facility] [address] [place] [address] Portia Maguire MD [address] [place] [address] Alcoholic cirrhosis, unspecified whether ascites present (CMS/HCC) [...] often do you attend chur ch or yarsani services? More than 4 times [...] week 06/15/2025 How often do you attend [facility] or yarsani services? More than 4 [...] and heating? Not hard at all 06/15/2025 [facility]at ional Health - Occupational [...] any time in the past 12 m [facility], were you homeless or living in a prison (including now)? 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) to steady your nerves or to get [...] Description 09/12/2025 8:30 AM EDT Clinical Support [facility] [place] [address] [place] [address] 09/12/2025 10:00 AM EDT Office Visit [facility] [place] [address] [place] [address] Portia Maguire MD [address] [place] [address] 10/03/2025 12:45 PM EST Office Visit Medical Office Building Urology [address] [facility], [address] [place] [address] Suhail Brock MD [address] [place] [address] 10/18/2025 4:20 PM EST Office Visit [facility] [place] [facility] [address] [facility], [address] [place] [address] Moustapha Katz MD [address] [place] [address] documented as of this encounter [...] are based on Ultrasound LI-RADS version 2017. [email or web address] -[email or web address] CRITICAL RESULT: No. COMMUNICATION: Per this written report. By electronically signing this report, I, the attending physician, attest that I have personally reviewed the images/data for the above examination(s) and agree with the final edited report. Drafted by Tye Kenney MD on 06/13/2025 2:04 PM Final report signed by Arturo aWsserman MD on 06/13/2025 2:49 PM Narrative 06/13/2025 [...] recommendations are based on UltrasoundLI-RADS version 2017. [email or web address] -[email or web address] .[email or web address] CRITICAL RESULT: No. COMMUNICATION: Per [...] documented as of this encounter Care Teams Pilot Plant Technician Relationship Specialty Start Date End Date Chris Medel MD [address] [place] [address] PCP - General 03/14/25 Ruma Hernández APRN [address] [facility] [place] [address] Referring Physician Gastroenterology 07/30/23 documented as of this encounter
--- OUTSIDE RECORDS SUMMARY | 2025-06-13 09:56 | XMS_ITS | Encounter Summary ---
Author Organization Healthcare Address [address] [place] [address] Care Team Providers Care Commissioning Agent Name Role Phone Ruma Hernández FIELD REPRESENTATIVES DIRECTOR Unavailable [phone] Chris Medel MD Primary Care Provider [phone] Reason for Referral * Imaging (Urgent) - Closed Specialty Diagnoses / Procedures Referred By Gianna reyes Referred To Contact Radiology Diagnoses Alcoholic cirrhosis, unspecified whether ascites present (CMS/HCC) Procedures US Liver Screen Portia Maguire MD [address] [address] Phone: tel: fax: Referral ID Status Reason Start Date Expiration Date Visits Re quested Visits Authorized [id number] Closed 06/13/2025 12/13/2026 1 1 Reason for Visit * Imaging (Urgent) - Closed Specialty Diagnoses / Procedures Referred By Contru reyes Referred To Contact Radiology Diagnoses Alcoholic cirrhosis, unspecified whether ascites present (CMS/HCC) Procedures US Liver Screen Portia Maguire MD [address] [address] Phone: tel: fax:[phone] Referral ID Status Reason Start Date Expiration Date Visits Re quested Visits Authorized [id number] Closed 06/13/2025 12/13/2026 1 1 Encounter Details Date Type Department Care Team (Latest Contact Info) Description 06/13/2025 9:56 AM EDT - 06/13/2025 10:35 AM EDT Hospital Encounter [facility] Radiology [address] [place] [address] Alcoholic cirrhosis, unspecified whether ascites present (CMS/HCC) [...] any clubs o r organizations such as latter-day groups, unions, fraternal or athletic groups, or [...] week 06/15/2025 [facility] or [facility] services? More than 4 times per year 06/15/2025 Do you belong to any clubs o r organizations such as latter-day groups, unions, fraternal or athletic groups, or [...] heating? Not hard at all 06/15/2025 [facility] - Occupational Stress [...] drink first t luisa in the morning (EYE-TUBE HEATER) to steady your nerves or to get rid of a hangover? 0 06/14/2025 CAGE Questionnaire Score 0 025 Utilities Answer Date Recorded In the past 12 months has th e [employer], gas, oil, or water company threatened to [...] not drink 06/15/2025 9:39 AM EDT Lisa Gutiérerz RN Q3: How often do you have [...] a day. ergocalciferol (Vitamin D-2) 1.25 MG (56732 UT) capsule Take 1 capsule by mouth [...] AM EDT Clinical Support [facility] [address] [place] [address] 09/12/2025 10:00 AM EDT Office Visit [facility] [address] [place] [address] Portia Maguire MD [address] [place] [address] 10/03/2025 12:45 PM EST Office Visit Medical Office Building Urology [address] [facility] [address], [address] [place] [address] Suhail Brock MD [address] [place] [address] 10/18/2025 4:20 PM EST Office Visit [facility] [address], [address] [place] [address] Moustapha Katz MD [address] [facility] [address] [place] [address] documented as of this encounter [...] are based on Ultrasound LI-RADS version 2017. [email or web address] -[email or web address] .[email or web address] CRITICAL RESULT: No. COMMUNICATION: Per [...] recommendations are based on UltrasoundLI-RADS version 2017. [email or web address] -2017 .[email or web address] CRITICAL RESULT: No. COMMUNICATION: Per this written report. By electronically signing this report, I, the attending physician, attestthat I have personally reviewed the images/data for the aboveexamination(s) and agree with the final edited report. Drafted by Tye Kenney MD on 06/13/2025 2:04 PM Final report signed by Arturo Wasserman MD on 06/13/2025 2:49 PM us Portia Maguire MD IM US PROCEDURES Final R esult documented in [...] documented as of this encounter Care Teams Commissioning Agent Relationship Specialty Start Date End Date Chris Medel MD [address] [place] [address] PCP - General 03/14/25 Ruma Hernández APRN [address] [facility] [address] [place] [address] Referring Physician Gastroenterology 07/30/23 documented as of this encounter
--- OUTSIDE RECORDS SUMMARY | 2025-06-13 10:36 | XMS_ITS | Encounter Summary ---
Author Organization Healthcare Address [address] [place] [address] Care Team Providers Care Inserter Operator Name Role Phone Ruma Hernández LUMBER SORTER Unavailable [phone] Chris Medel MD Primary Care Provider [phone] Reason for Referral * Imaging (Routine) - Closed Specialty Diagnoses / Procedures Referred By Gianna t Referred To Contact Cardiology Diagnoses Pre-liver transplant, listed Procedures Echo, Adult Transthoracic (TTE) Complete Zarina Moore PA [address] [address] Phone: tel: fax: Referral ID Status Reason Start Date Expiration Date V isits Requested Visits Authorized [id number] Closed Perform Procedure 03/22/2025 09/21/2026 1 1 Reason for Visit * Imaging (Routine) - Closed Specialty Diagnoses / Procedures Referred By Contac t Referred To Contact Cardiology Diagnoses Pre-liver transplant, listed Procedures Echo, Adult Transthoracic (TTE) Complete Zarina Moore PA [address] [address] Phone: tel: fax: Referral ID Status Reason Start Date Expiration Date V isits Requested Visits Authorized [id number] Closed Perform Procedure 03/22/2025 09/21/2026 1 1 Encounter Details Date Type Department Care Team (Latest Contact Info) Description 06/13/2025 10:36 AM EDT - 06/13/2025 12:56 PM EDT Hospital Encounter Cardiac Imaging [address] [place] [address] Pre-liver transplant, listed Discharge Disposition: Home or [...] often do you attend chur ch or temple services? More than 4 times [...] How often do you attend [facility] or temple services? More than 4 times [...] and heating? Not hard at all 06/15/2025 [facility] - [...] any time in the past 12 m [facility], were you homeless or living in a residential (including now)? No 06/15/2025 CAGE ASSESSMENT Answer [...] drink first t luisa in the morning (EYE-SERICULTURIST) to steady your nerves or to get [...] 09/13/2024 5 ergocalciferol (Vitamin D-2) 1.25 MG (79196 UT) capsule Take 1 capsule by mouth [...] Upcoming Encounters Date Type Department Care Team ([facility] Contact Info) Description 09/12/2025 8:30 AM EDT Clinical Support [facility] [address] [place] [address] 09/12/2025 10:00 AM EDT Office Visit [facility] [address] [place] [address] Portia Maguire MD [address] [place] [address] 10/03/2025 12:45 PM EST Office Visit Medical Office Building [facility] [address] [facility], [address] [place] [id number] Suhail Brock MD [address] [place] [id number] 10/18/2025 4:20 PM EST Office Visit [facility] [address], [address] [place] [address] Moustapha Katz MD [address] [place] [address] documented as of this encounter [...] documented as of this encounter Care Teams Inserter Operator Relationship Specialty Start Date End Date Chris Medel MD [address] [place] [address] PCP - General 03/14/25 Ruma Hernández APRN [address] [facility] [address] [place] [address] Referring Physician Gastroenterology 07/30/23 documented as of this encounter
--- OUTSIDE RECORDS SUMMARY | 2025-06-13 12:57 | XMS_ITS | Encounter Summary ---
Author Organization Healthcare Address [address] [place] [address] Care Team Providers Care Manager Operations Research Name Role Phone Ruma Hernández PLYWOOD SCARFER TENDER Unavailable [phone] Chris Medel MD Primary Care Provider [phone] Reason for Referral * Imaging (Routine) - Closed Specialty Diagnoses / Procedures Referred By Gianna reyes Referred To Contact Radiology Diagnoses Pre-liver transplant, listed Procedures CT Angio Cardiac Coronary Arteries Zarina Moore PA [address] [address] Phone: tel: fax: Referral ID Status Reason Start Date Expiration Date Visits Re quested Visits Authorized [id number] Closed 03/22/2025 09/21/2026 1 1 Reason for Visit * Imaging (Routine) - Closed Specialty Diagnoses / Procedures Referred By Gianna reyes Referred To Contact Radiology Diagnoses Pre-liver transplant, listed Procedures CT Angio Cardiac Coronary Arteries Zarina Moore PA [address] [address] Phone: tel: fax: Referral ID Status Reason Start Date Expiration Date Visits Re quested Visits Authorized [id number] Closed 03/22/2025 09/21/2026 1 1 Encounter Details Date Type Department Care Team (Latest Contact Info) Description 06/13/2025 12:57 PM EDT - 06/13/2025 11:59 PM EDT Hospital Encounter [facility] [address] [place] [address] Chris Knott RN CH-TARIK Richard 5 T2 [...] week 02/19/2025 How often do you attend [facility] or holiness services? More than 4 [...] Recorded Patient Health Questionnaire-2 Score 0 06/08/2025 [facility] Occupat ional [...] time in the past [address] [facility], were you homeless or living in a long term (including now)? No 02/19/2025 CAGE ASSESSMENT Answer [...] drink first t luisa in the morning (EYE-SOLAR INSTALLER) to steady your nerves or to get rid of a hangover? 0 06/14/2025 CAGE Questionnaire Score 0 025 Utilities Answer Date Recorded In the past 12 months has th [employer], gas, oil, or water [employer] threatened to shut off services in your [...] 09/13/2024 5 ergocalciferol (Vitamin D-2) 1.25 MG (03634 UT) capsule Take 1 capsule by mouth [...] from the original note were not included. 78836 Understanding coronary computed tomography angiography (CCTA) Coronary [...] site Last Reviewed Date: 2024 00:00:00 ?? 3231-6282 The [employer]. All rights reserved. This information is not intended as a substitute for professional medical care. Always follow your healthcare professional's instructions. documented in this encounter Plan of Treatment Upcoming Encounters Date Type Department Care Team ([facility] Contact Info) Description 09/12/2025 8:30 AM EDT Clinical Support [facility] [address] [place] [address] 09/12/2025 10:00 AM EDT Office Visit [facility] [address] [place] [address] Portia Maguire MD [address] [place] [address] 10/03/2025 12:45 PM EST Office Visit Medical Office Building Urology [address] [facility], [address] [place] [address] Suhail Brock MD [address] [place] [address] 10/18/2025 4:20 PM EST Office Visit [facility] [address], [address] [place] [address] Moustapha Katz MD [address] [place] [address] documented as of this encounter [...] source 192 MDCT scanner (Somatom Force, Siemens [employer] Systems) was used for data acquisition. A [...] documented as of this encounter Care Teams Manager Operations Research Relationship Specialty Start Date End Date Chris Medel MD [address] [place] [address] PCP - General 03/14/25 Ruma Hernández APRN [address] [place] [address] Referring Physician Gastroenterology 07/30/23 documented as of this encounter
--- OUTSIDE RECORDS SUMMARY | 2025-06-14 15:47 | XMS_ITS | Encounter Summary ---
Author Organization Healthcare Address [address] [place] [address] Care Team Providers Care Shipping Associate Name Role Phone Ruma Hernández EDM OPERATOR Unavailable [phone] Chris Medel MD Primary Care Provider [phone] Reason for Visit * Auth/Cert (Routine) Specialty Diagnoses / Procedures Referred By Contru t Referred To Contact Diagnoses Transplant Luis Angel Bee MD [address] [address] Phone: tel: fax: [facility] [address] [place] [address] Phone: tel: Referral ID Status Reason Start Date Expiration Date Visits Re quested Visits Authorized [id number] 1 1 Encounter Details Date Type Department Care Team (Late st Contact Info) Description 06/14/2025 3:47 PM EDT - 06/15/2025 6:14 PM EDT Hospital Encounter [facility]patient [address] [place] [address] Luis Angel Bee MD [address] [address] Alcoholic cirrhosis, unspecified whether ascites [...] often do you attend [facility]? More than 4 times per year 02/19/2025 Do you belong to any clubs o r organizations such as sikh groups, unions, fraternal or athletic groups, or [...] any clubs o r organizations such as sikh groups, unions, fraternal or athletic groups, or [...] and heating? 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 Take 1 capsule daily only on 5 days in the week ( Wednesday to Wednesday only) 24 capsule 5 06/10/2025 6 Calcium-Vitamin D (CALTRATE 600 PLUS-VIT D PO) Take 600 mg by mouth 2 times a day. ergocalciferol (Vitamin D-2) 1.25 MG (72115 UT) capsule Take 1 capsule by mouth [...] 65 yo M who was admitted to [facility] on 06/14 for possible liver transplant. Pre-operative liver transplant work up was initiated however, the donor did not and transplant was subsequently canceled. At the time of discharge, the patient was voiding without difficulty. Thepatient's mobility/activity was appropriate for his current condition. z * Discharge Summary - Rebeca Andres MD - 06/15/2025 4:50 PM EDT Hospitalization Admit Date/Time: 06/14/2025 3:47 PM Admitting Attending: Luis Angel Bee Discharge Date: 06/15/2025 Discharge Attending Physician: Luis Angel Bee MD PCP name and Address: Chris Medel MD [address] [facility] [place] [address] Referring provider name and address: No referring provider defined for this encounter. Chief Concern, Brief History of Present Illness, and Hospital Course David Serrano is a 65 yo M with history of alcohol-associated cirrhosis, renal Stones, GERD, Gout, hypocalcemia, and history of iron overload requiring therapeutic phlebotomy who was admitted to [facility] on 06/14 for possible liver transplant. Pre-operative liver transplant work up was initiated however, the donor did not and transplant was subsequently canceled. At the time of discharge,the patient was voiding without difficulty. The patient's mobility/activity was appropriate for hiscurrent condition. Surgeries and Procedures None Medication List . calcitriol 0.25 MCG capsule Commonly known as: Rocaltrol Take 1 capsule by mouth daily. Take 1 capsule daily only on 5 days in the week ( Wednesday to Wednesday only) CALTRATE 600 PLUS-VIT D PO Take 600 mg by mouth 2 times a day. carvedilol 3.125 MG tablet Commonly known as: Coreg Take 1 tablet (3.125 mg) by mouth 2 (two) times a day with meals. ergocalciferol 1.25 MG (58065 UT) capsule Commonly known as: Vitamin D-2 Take 1 capsule by mouth 1 (one) time per week. furosemide 20 MG tablet Commonly known as: Lasix Take 2 tablets by mouth daily. omeprazole [address] capsule Commonly known as: PriLOSEC Take 2 capsules by mouth daily. spironolactone 50 MG tablet Commonly known as: Aldactone Take 2 tablets by mouth daily. Xifaxan 550 MG tablet Generic drug: rifAXIMin Take 1 tablet by mouth 2 times a day. Discharge Diagnosis Medical Problems Active and Resolved Hospital Problems Hospital * (Principal) Alcoholic cirrhosis, unspecified whether ascites present (CMS/HCC) Post Discharge Instructions Date of Admission 06/14/2025 Date of Discharge: [...] Commonly known as: Coreg ergocalciferol 1.25 MG (44631 UT) capsule Take 1 capsule by mouth [...] Department Center 07/11/2025 9:00 AM TRANSPLANT LAB [facility] 07/11/2025 10:30 AM Portia Maguire MD [facility] 10/03/2025 12:45 PM Suhail Brock MD [facility] 10/18/2025 4:20 PM Moustapha Katz MD [facility] Test Results Pending At Discharge Pending Labs Order Current Status Cytomegalovirus Antibody IgG In process Hepatitis C Virus (HCV) Quantitative PCR In process Leticia auris Surveillance by PCR Preliminary result Prepare Leukocyte Reduced RBC: 10 Units Preliminary result Pertinent Physical Exam At Time of Discharge Physical Exam Constitutional: General: He is not in acute distress. HENT: Head: Normocephalic. Nose: Nose normal. Mouth/Throat: Mouth: Mucous membranes are moist. Pharynx: Oropharynx is clear. Eyes: Extraocular Movements: Extraocular movements intact. Pupils: Pupils are equal, round, and reactive to light. Comments: Scleral icterus Pulmonary: Effort: Pulmonary effort is normal. Abdominal: General: Abdomen is flat. There is no distension. Palpations: Abdomen is soft. Tenderness: There is no abdominal tenderness (no tenderness to palpation, no appreciable fluid wave). Skin: General: Skin is warm and dry. Capillary Refill: Capillary refill takes less than 2 seconds. Coloration: Skin is jaundiced. Neurological: Mental Status: He is alert and oriented to person, place, and time. Discharge Disposition/Condition Disposition: Home Condition: Stable (s/sx potential problems absent or manageable) I spent < 30 minutes of patient care and instruction time in preparation for this discharge. Cosigned by Luis Angel Bee MD at 06/18/2025 2:28 PM EDT Associated attestation - Luis Angel Bee MD - 06/18/2025 2:28 PM EDT Images from the original note were not included. ATTENDING NOTE: I discussed the patient with the resident, medical student, and/or trainee. I have reviewed and agree with the assessment and plan as outlined in their note. I did not see the patient prior to discharge. Luis Angel Bee M.D. modeling agent Department of Surgery / Transplantation [facility] [email or web address] Transplant Center, [address], [place] [address] Dictation software disclaimer: Parts of this note was generated using voice recognition equipment and technology provided by the [facility]. Despite a reasonable effort at proofreading, it is subject to corpsman related errors, omissions, spelling errors, changes in dictated words, and words inserted which may have been misinterpreted by voice dictation software. Meaning of words may require interpretation in the appropriate context of the sentence and clinical situation. * Progress Notes - Rekha Us, PharmD [...] since 06/13 ergocalciferol (Vitamin D-2) 1.25 MG (81744 UT) capsule 06/08/2025 No Yes Sig: Take [...] daily. Facility-Administered Medications: None Patients Preferred Pharmacy* [facility] - [place], [place] - [address] [facility] [address] [facility] [id number] *May default to [facility] if patient is enrolled to [id number] Service. Pharmacy Benefits ZACHDAVID BB CDH-N [id number] ([facility]) Covered: <b>Retail</b>, <b>Mail Order</b>, Specialty Unknown: Long- Term Care BIN: [id number] : 1960 Group ID: [id number] PCN: [id number] Legal sex: M Group name: [employer] Address: [address] [place], [place] [id number] Additional Comments: CHEMICAL MIXER list has been updated to align with [...] agree with the information documented above. All student/auditor internal notes from collection of information has been reviewed. Medications match pt indications and PMHx. * Progress Notes - Dear, Lisa Conley RN - 06/15/2025 9:03 AM EDT Case Management Adult Initial Progress Note David Serrano 65 y.o. male CSN: [id number] Admission: 06/14/2025 3:47 PM Primary Problem: Alcoholic cirrhosis, unspecified whether ascites present (CMS/HCC) Women'S Basketball Coach reviewed chart and spoke with patient to complete this Initial Case Management Assessment. PCP: Chris Medel MD Emergency Contact: Extended Emergency Contact Information Primary Emergency Contact: ZachStacy natarajan Address: [address] [place] [address] [place] [address] [facility] Mobile Relation: Spouse Preferred language: Swiss Momd Teacher needed? No Secondary Emergency Contact: Lan Serrano Mobile Relation: Son Preferred language: Swiss Momd Teacher needed? No Insurance: Primary Visit Coverage Payer Plan Sponsor Code Group Number Group Name NANCY CRUZ [place] [id number] Primary Visit Coverage Subscriber Subscriber ID Subscriber Name Subscriber SSN Subscriber Address [id number] DAVID SERRANO [id number] [place] [address] [address] [place] [address] Patient information: [place] [employer] - [phone] = Secondary Emergency Contact. Pt admitted for [...] Pt can walk up flight of steps. [address] [place] [address] [address] [place] [address] Current DME: No DME in use. Income Information: Greater than 115 K per month. 2 in household. Housing Circumstances-Z Codes: Private home with 1 [address]. Single story home. [place] water. Patient Referred to: Pt would agree to [facility] referral if recommended. Anticipated Discharge Date: TBD Patient's Discharge Goal: HWA Assistance Available at Discharge: = primary care Secondary care givers = friend/ neighbors Discharge Transport: Follow Up Transport: Home Health / Home Infusion / Outpatient Dialysis Services: No history of home health. No history of home infusion. No history of dialysis. Living Will/Advance Directive/Power of Windmill Technician /Guardian: Unable to assess: No Have you reviewed your Advance Directive and is it valid for this stay?: Yes Advance Directive: Patient has advance directive, copy not in chart Advance Directive not in Chart: Copy requested from family (pt states they will call system programmer) Information Provided on Healthcare Directives: Yes Pre-existing DNR/DNI Order: No Patient Requests Assistance: No Additional Comments: Pt wears hearing aids. HS degree. Lisa Gutiérrez, RN * Care Plan - Sera Kitchen - 06/15/2025 8:28 AM EDT Problem: Liver Transplant Goal: Absence of Bleeding Outcome: Met Intervention: Monitor and Manage Bleeding Flowsheets (Taken 06/15/2025 08) Bleeding Precautions: blood pressure closely monitored Problem: Liver Failure Goal: Absence of Bleeding Outcome: Met Problem: Liver Transplant Goal: Effective Organ Function Outcome: Unable to Meet, Plan Revised Intervention: Support Donor Organ Function Flowsheets (Taken 06/15/2025 0820) Stabilization Measures: legs elevated fluid resuscitation initiated Problem: Adult Inpatient Plan of Care Goal: Plan of Care Review Outcome: Ongoing, Progressing Flowsheets (Taken 06/15/2025 08) Outcome Evaluation: Patient agrees with plan of care. Plan of Care Reviewed With: patient spouse Goal: Patient-Specific Goal (Individualized) Outcome: Ongoing, Progressing Flowsheets (Taken 06/15/2025 0800) Patient/Family-Specific Goals (Include Timeframe): Patient will be [...] and Optimize Nutrition Intake Flowsheets (Taken 06/15/2025819) Nutrition Support Management: weight trending reviewed Oral [...] Viv Caban MD * Care Plan - Chapito Jarrett - 06/14/2025 11:06 PM EDT Problem: Adult Inpatient Plan of Care Goal: Plan of Care Review Outcome: Ongoing, Progressing Flowsheets (Taken 06/14/2025 2259) Progress: no change Outcome Evaluation: Awaiting possible liver txp Plan of Care Reviewed With: patient spouse Goal: Patient-Specific Goal (Individualized) Outcome: Ongoing, Progressing Flowsheets (Taken 06/14/2025 2123) Patient/Family-Specific Goals (Include Timeframe): Remain injury free [...] Intervention: Optimize Oxygenation and Ventilation Flowsheets Taken 06/14/20252258 Airway/Ventilation Management: pulmonary hygiene promoted Taken 06/14/20252122 Head of Bed (HOB) Positioning: HOB at 20-30 degrees * H&P - Tamia Layton MD - 06/14/2025 6:08 PM EDT Images from the original note were not included. [facility] Department of Surgery Division of Abdominal Transplant Surgery History & Physical/Consult Note Subjective History of Present Illness: Chief Complaint: presenting for liver transplant David Serrano is a 65 y.o. male with PMHx significant for alcohol- associated cirrhosis, history of Renal Stones, GERD, Gout, hypocalcemia, and history of iron overload requiring therapeutic phlebotomy. He presents to [facility] on 06/14/2025 for liver transplantation. No recent illnesses. No newchanges to his medical history. No new medications. He does not take blood thinners. He endorses mild intermittent abdominal pain over the last 2-3 days. Review of Systems: A 14 point review of systems was reviewed and is negative except as mentioned inthe HPI. History Obtained From: Patient/Family Past Medical History: Past Medical History[1] Allergies And Reactions: Allergies[2] Past Surgical History: Surgical History[3] His only past surgical history is open inguinal hernia repair in the 80s. Family Medical History: Family History[4] Social History: Social History[5] Immunizations: Immunization History Administered Date(s) Administered Hep B, adult 06/02/2023, 06/29/2023, 12/28/2023 I have updated and confirmed the past medical, surgical, family and social history. Home Medications: Prior to Admission medications Medication Sig Start Date End Date Taking? Authorizing Provider calcitriol (Rocaltrol) 0.25 MCG capsule Take 1 capsule by mouth daily. Take 1 capsule daily only on5 days in the week ( Wednesday to Wednesday only) 06/10/25 12/07/25 Moustapha Katz MD Calcium-Vitamin D (CALTRATE 600 PLUS-VIT D PO) Take 600 mg by mouth 2 times a day. Provider, MD Jenelle carvedilol (Coreg) 3.125 MG tablet Take 1 tablet (3.125 mg) by mouth 2 (two) times a day with meals. 09/13/24 09/13/25 Portia Maguire MD ergocalciferol (Vitamin D-2) 1.25 MG (58721 UT) capsule Take 1 capsule by mouth 1 (one) time per week. 03/08/25 Moustapha Katz MD furosemide (Lasix) 20 MG tablet Take 2 tablets by mouth daily. 03/14/25 03/14/26 Zarina Moore PA omeprazole (PriLOSEC) [address] capsule Take 2 capsules by mouth daily. 03/14/25 03/14/26 Radha Moore PA spironolactone (Aldactone) 50 MG tablet Take 2 tablets by mouth daily. 03/14/25 03/14/26 Radha Moore PA Xifaxan 550 MG tablet 01/15/25 Provider, MD Jenelle Current Hospital Medications: Current Medications[6] Objective Objective: Visit Vitals BP 111/70 (BP Location: Right arm, Patient Position: Lying) Pulse 74 Temp 36.5 ??C (97.7 ??F) (Oral) Ht 1.676 m (5' 6 ) Wt 103 kg (227 lb 4.7 oz) SpO2 94% BMI 36.69 kg/m?? @ Physical Exam: Physical Exam Constitutional: General: He is not in acute distress. HENT: Head: Normocephalic. Nose: Nose normal. Mouth/Throat: Mouth: Mucous membranes are moist. Pharynx: Oropharynx is clear. Eyes: Extraocular Movements: Extraocular movements intact. Pupils: Pupils are equal, round, and reactive to light. Comments: Scleral icterus Pulmonary: Effort: Pulmonary effort is normal. Abdominal: General: Abdomen is flat. There is no distension. Palpations: Abdomen is soft. Tenderness: There is no abdominal tenderness (no tenderness to palpation, no appreciable fluid wave). Skin: General: Skin is warm and dry. Capillary Refill: Capillary refill takes less than 2 seconds. Coloration: Skin is jaundiced. Neurological: Mental Status: He is alert and oriented to person, place, and time. Laboratory: Pending at the time of note Imaging: CT ANGIO CARDIAC CORONARY ARTERIES (06/13) IMPRESSION: 1. No evidence of coronary plaque [...] large esophageal varices and medium volume ascites. US LIVER SCREEN (06/13) IMPRESSION: Cirrhosis. No focal liver lesion. Splenomegaly. Moderate volume ascites. Category Score US-1 Negative. No US evidence of HCC. No observation or Only definitely benign observation(s). Continue with regular screening. Visualization Score Vis A. No or minimal limitations. Limitations if any are unlikely to meaningfully affect sensitivity. The above scoring system and recommendations are based on Ultrasound LI-RADS version 2017. [email or web address] XR CHEST 2 VIEWS (06/13) IMPRESSION: No acute focal airspace disease. Radiographic Interpretation: I have reviewed the imaging above and agree with the radiologist interpretation. Assessment/Plan Assessment & Plan: David Serrano is a 65 y.o. male with PMHx significant for alcohol- associated cirrhosis, history of Renal Stones, GERD, Gout, hypocalcemia, and history of iron overload requiring therapeutic phlebotomy. He presents to [facility] on 06/14/2025 for liver transplantation. He denies any changes to his health since last seen. Consent was obtained on 06/14/25. Plan: - Admit to [facility] - O Assessment & Plan Alcoholic cirrhosis, unspecified whether ascites present (CMS/HCC) Present on Admission: Yes Non-Hospital Problems Alcoholic cirrhosis of liver HLD (hyperlipidemia) HTN (hypertension) Obesity (BMI 35.0-39.9 without comorbidity) Severe obesity (BMI 35.0-39.9) with comorbidity (CMS/HCC) Other osteoporosis without current pathological fracture Iron overload Vitamin D deficiency Left inguinal hernia Bilateral leg edema Other ascites Tamia Layton MD General Surgery PGY-1 [1] Past Medical History: Diagnosis Date Arthritis Cirrhosis (CMS/HCC) Clotting disorder (CMS/HCC) low platelets Epididymitis treated 11/15/23 Erectile dysfunction Hemochromatosis Hypertension was on medication, but ok now so stopped meds Kidney stone recent scan Pre-liver transplant, listed 07/05/2024 Urinary tract infection several lately [2] Allergies Allergen Reactions Lisinopril Cough [3] Past Surgical History: Procedure Laterality Date HERNIA REPAIR 1979 [4] Family History Problem Relation Name Age of Onset Hearing loss Mother Sera Asthma Father Mental illness Father Diabetes Daughter Gloria [5] Social History Socioeconomic History Marital status: Spouse name: None Number of children: None Years of education: None Highest education level: None Occupational History None Tobacco Use Smoking status: Never Passive exposure: Past Smokeless tobacco: Former Types: Chew Quit date: 11/15/2019 Tobacco comments: not sure of exact date quit chewing but several years ago Vaping Use Vaping status: Never Used Substance and Sexual Activity Alcohol use: Not Currently Comment: quit February 2023 Drug use: Never Sexual activity: Not Currently Partners: Female Other Topics Concern None Social History Narrative None [6] Current Facility-Administered Medications Medication Dose Route Frequency Provider Last Rate Last Admin dextrose 5 % and sodium chloride 0.45 % infusion 75 mL/hr Intravenous Continuous Viv Caban MD mupirocin (Bactroban) 2 % ointment 1 Application 1 Application Each Nostril BID Luis Angel Bee MD [START ON 06/15/2025] pantoprazole (Protonix) EC tablet 40 mg 40 mg Oral Daily before breakfast Anabel Carter MD Cosigned by Luis Angel Bee MD at 06/18/2025 2:28 PM EDT Associated attestation - Luis Angel Bee MD - 06/18/2025 2:28 PM EDT Images from the original note were not included. ATTENDING NOTE: I discussed the patient with the resident, medical student, and/or trainee. I have reviewed and agree with the assessment and plan as outlined in their note. I did not see the patient prior to discharge. Luis Angel Bee M.D. modeling agent Department of Surgery / Transplantation [facility] [email or web address] Transplant Center, [address], [place] [address] Dictation software disclaimer: Parts of this note was generated using voice recognition equipment and technology provided by the [facility]. Despite a reasonable effort at proofreading, it is subject to corpsman related errors, omissions, spelling errors, changes in dictated words, and words inserted which may have been misinterpreted by voice dictation software. Meaning of words may require interpretation in the appropriate context of the sentence and clinical situation. documented in this encounter Plan of Treatment Upcoming Encounters Date Type Department Care Team (Late st Contact Info) Description 09/12/2025 8:30 AM EDT Clinical Support [facility] Trans[facility] [place] [address] [place] [address] 09/12/2025 10:00 AM EDT Office Visit [facility] [place] [address] [place] [address] Portia Maguire MD [address] [facility] [address] [place] [address] 10/03/2025 12:45 PM EST Office Visit Medical Office Building Urology [address] [facility], [address] [place] [address] Suhail Brock MD [address] [place] [address] 10/18/2025 4:20 PM EST Office Visit [facility] [place] [facility] [address] [facility], [address] [place] [address] Moustapha Katz MD [address] [facility] [address] [place] [address] Pending Results Name Type Priority Associated Diagnoses Date /Time Prepare Leukocyte Reduced RBC: 10 Units Blood Bank Routine 06/14/2025 6:24 PM EDT documented as of this encounter Procedures Procedure [...] EXTRA TUBES Routine 06/14/2025 6:31 PM EDT HEPATITIS C VIRUS (HCV) QUANTITATIVE PCR STAT 06/14/2025 6:31 PM EDT HIV 1/2 ANTIBODY/ANTIGEN [...] ECG Atrial Rate 65 BPM MUSE ECG WA Interval 162 ms MUSE ECG QRSD Interval 86 ms MUSE ECG QT Interval 446 ms MUSE ECG QTC Interval 463 ms MUSE ECG P [place] 4 degrees MUSE ECG R [place] 58 degrees MUSE ECG T Wave [place] 22 degrees MUSE ECG Diagnosis Normal sinus rhythm MUSE ECG Diagnosis Cannot rule out Anterior infarct , age undetermined MUSE ECG Diagnosis Abnormal ECG MUSE ECG Diagnosis MUSE ECG Diagnosis Confirmed by Max Gregorio ([id number]) on 06/15/2025 3:47:28 PM MUSE ECG 06/15/2025 10:3 5 AM EDT 06/15/2025 3:47 PM EDT us Mary INTERIANO ECG ORDERABLES Final Result MUSE ECG * SARS CoV-2/COVID-19 by PCR - Rapid (06/14/2025 6:47 PM EDT) Pathologist [facility] SARS CoV-2/COVID-1 9 RNA PCR Result Not Detected Not Detected 06/14/2025 8:35 PM EDT [facility] Swab Nasopharyngeal structure / Unknown Non-blood Collection / Unknown 06/14/2025 6:47 PM EDT 06/14/2025 7:49 PM EDT Narrative [facility] - 06/14/2025 8:35 PM EDT [...] This test was performed on the [employer]pert [employer] SARS CoV-2 Plus assay test, a PCR- [...] MICROBIOLOGY - GENERA L ORDERABLES Final Result [facility] [address] [place] [address] * Leticia auris Surveillance by PCR (06/14/2025 6:47 PM EDT) Leticia auris PCR Result Not Detected Not Detected 06/18/2025 5:43 AM EDT [facility] Swab (Axilla and Groin) Non-blood Collection / Unknown 06/14/2025 6:47 PM EDT 06/14/2025 7:49 PM EDT Narrative [facility] - 06/18/2025 5:43 AM EDT This PCR assay was developed and its performance characteristics determined by [facility] as appropriate for clinical purposes. This assay has not been cleared or approved by the FDA, but is performed in a CLIA regulated laboratory that is qualified to perform high-complexity testing. us Luis Angel Bee MD LAB MICROBIOLOGY - GENERA L ORDERABLES Final Result [facility] [address] [place] [address] * Cytomegalovirus Antibody IgG (06/14/2025 6:31 PM EDT) Pathologist [facility] CMV ANTIBODY IGG <0.20 <=0.59 U/mL 06/16/2025 9:07 PM EDT [facility] Blood Venous blood specimen / Unknown Venipuncture / Unknown 06/14/2025 6:31 PM EDT 06/14/2025 7:05 PM EDT Narrative [facility] BILL) - 06/16/2025 9:07 PM EDT INTERPRETIVE INFORMATION: [...] laboratory at the same time. Performed By: [email or web address] [address] [place] [address] [employer] Process Control Technician: Balwinder Wadsworth MD, PhD CLIA Number: [id number] us Luis Angel Bee MD LAB BLOOD ORDERABLES Nadia crockett Result [facility] [address] [place] [address] * Light Green Top (06/14/2025 6:31 PM EDT) Pathologist [facility] Extra Hold for add-ons 06/14/2025 11:01 PM EDT [facility] Comment:Auto resulted. Blood Venous blood specimen / Unknown 06/14/2025 6:31 PM EDT 06/14/2025 8:12 PM EDT Result Neto Bee MD LAB BLOOD ORDERABLES Nadia l Result Performing Organization Address City/[facility]/ZIP Co de Phone Number [facility] [address] [place] [address] * Red Top (06/14/2025 6:31 PM EDT) [facility] Extra Hold for add-ons 06/14/2025 11:01 PM EDT [facility] Comment:Auto resulted. Blood Venous blood specimen / Unknown 06/14/2025 6:31 PM EDT 06/14/2025 8:12 PM EDT Result Neto Bee MD LAB BLOOD ORDERABLES Nadia l Result Performing Organization Address [facility] Co de Phone Number [facility] [address] [place] [address] * HIV 1 & 2 Antibody/Antigen Screen (06/14/2025 6:31 PM EDT) [facility] HIV 1 & 2 Antibody/Antigen Screen Non Reactive Non Reactive 06/14/2025 7:45 PM EDT [facility] Comment:Screening for HIV 1 & 2 antibodies, and P24 antigen is NONREACTIVE. No confirmatory testing is required. Blood Venous blood specimen / Unknown Venipuncture / Unknown 06/14/2025 6:31 PM EDT 06/14/2025 7:05 PM EDT Result Neto Bee MD LAB BLOOD ORDERABLES Nadia l Result Performing Organization Address City/[facility]/ZIP Co de Phone Number [facility] [address] [place] [address] * Hepatitis C Virus (HCV) Quantitative PCR (06/14/2025 6:31 PM EDT) [facility] Hepatitis C Virus (HCV) Quantitative Interpretation Not Detected Not Detected. 06/18/2025 10:15 PM EDT [facility] Blood Venous blood specimen / Unknown Venipuncture / Unknown 06/14/2025 6:31 PM EDT 06/15/2025 8:51 AM EDT Narrative [facility] - 06/18/2025 10:15 PM EDT [employer] M2000 HCV test is a Real Time in vitro nucleic acid amplification test for the quantitation of Hepatitis C Viral (HCV) RNA in human serum in HCV-infected individuals. It is intended for use as an aid in the management of HCV-infected individuals undergoing anti-viral therapy. The dynamic range for this test is log10 = 1.08 to 8.00 and/or 12 to 100,000,000 IU/mL. The limit of detection (LOD) for this assay is 12 IU/mL and the limit of quantitation (LOQ) is 12 IU/mL. This assay is FDA approved for clinical use. us Luis Angel Bee MD LAB BLOOD ORDERABLES Nadia l Result Performing Organization Address City/[facility]/ZIP Co de Phone Number [facility] [address] [place] [address] * Hepatitis C Antibody (06/14/2025 6:31 PM EDT) Hepatitis C Antibody Negative Negative 06/14/2025 7:45 PM EDT [facility] Blood Venous blood specimen / Unknown Venipuncture / Unknown 06/14/2025 6:31 PM EDT 06/14/2025 7:05 PM EDT us Luis Angel Bee MD LAB BLOOD ORDERABLES Nadia l Result [facility] [address] [place] [address] * Hepatitis B Surface Antigen (06/14/2025 6:31 PM EDT) Hepatitis B Surf Antigen Negative Negative 06/14/2025 8:18 PM EDT [facility] Blood Venous blood specimen / Unknown Venipuncture / Unknown 06/14/2025 6:31 PM EDT 06/14/2025 7:05 PM EDT us Luis Angel Bee MD LAB BLOOD ORDERABLES Nadia l Result Performing Organization Address [facility] Co de Phone Number [facility] [address] [place] [address] * (ABNORMAL) Hepatitis B Surface Antibody, Quantitative (06/14/2025 6:31 PM EDT) [facility] Hepatitis B Surface Antibody, Quantitative 34.47(H) NonReacti ve: <8, Grayzone: 8 - <12, Reactive: >= 12 mIU/mL 06/14/2025 8:18 PM EDT [facility] Comment: Reactive. Individual is considered immune to HBV infection. Blood Venous blood specimen / Unknown Venipuncture / Unknown 06/14/2025 6:31 PM EDT 06/14/2025 7:05 PM EDT us Luis Angel Bee MD LAB BLOOD ORDERABLES Nadia l Result Performing Organization Address [facility] Co de Phone Number [facility] [address] [place] [address] * Hepatitis B Core Total Antibody IgG,IgM (06/14/2025 6:31 PM EDT) [facility] Hepatitis B Core Total Antibody IgG,IgM Negative Negative 06/14/2025 8:18 PM EDT [facility] Blood Venous blood specimen / Unknown Venipuncture / Unknown 06/14/2025 6:31 PM EDT 06/14/2025 7:05 PM EDT us Luis Angel Bee MD LAB BLOOD ORDERABLES Nadia l Result Performing Organization Address City/[facility]/ZIP Co de Phone Number [facility] [address] [place] [address] * (ABNORMAL) Vitamin D 25 Hydroxy (06/14/2025 6:31 PM EDT) [facility] Vitamin D 25 Hydroxy 10.8(L) 20.0 - 80.0 ng/mL 06/14/2025 8:19 PM EDT [facility] Blood Venous blood specimen / Unknown Venipuncture / Unknown 06/14/2025 6:31 PM EDT 06/14/2025 7:05 PM EDT Narrative [facility] - 06/14/2025 8:19 PM EDT Testing performed on [employer], standardized against NIST SRM 2972. When testing [...] MD LAB BLOOD ORDERABLES Nadia crockett Result [facility] [address] [place] [address] * (ABNORMAL) CBC and Differential (06/14/2025 6:31 PM EDT) WBC Count 7.95 3.70 - 10.30 10*3/uL LAB HEMATOLOGY METHOD 06/14/2025 7:24 PM EDT [facility] RBC Count 2.90(L) 4.60 - 6.10 10*6/uL LAB HEMATOLOGY METHOD 06/14/2025 7:24 PM EDT [facility] HGB 10.1(L) 13.7 - 17.5 g/dL LAB HEMATOLOGY METHOD 06/14/2025 7:24 PM EDT [facility] HCT 29.7(L) 40.0 - 51.0 % LAB HEMATOLOGY METHOD 06/14/2025 7:24 PM EDT [facility] Platelet Count 56(L) 155 - 369 10*3/uL LAB HEMATOLOGY METHOD 06/14/2025 7:24 PM EDT [facility] MCV 102(H) 79 - 98 fL LAB HEMATOLOGY METHOD 06/14/2025 7:24 PM EDT [facility] MCH 34.8(H) 26.0 - 32.0 pg LAB HEMATOLOGY METHOD 06/14/2025 7:24 PM EDT [facility] MCHC 34.0 30.7 - 35.5 g/dL LAB HEMATOLOGY METHOD 06/14/2025 7:24 PM EDT [facility] RDW 16.9(H) 11.5 - 14.5 % LAB HEMATOLOGY METHOD 06/14/2025 7:24 PM EDT [facility] MPV 11.5 8.8 - 12.5 fL LAB HEMATOLOGY METHOD 06/14/2025 7:24 PM EDT [facility] nRBC 0.0 <=0.0 per 100 WBCs LAB HEMATOLOGY METHOD 06/14/2025 7:24 PM EDT [facility] Differential Type Automated LAB HEMATOLOGY METHOD 06/14/2025 7:24 PM EDT [facility] Neutrophils % 56 % LAB HEMATOLOGY METHOD 06/14/2025 7:24 PM EDT [facility] Lymphocytes % 25 % LAB HEMATOLOGY METHOD 06/14/2025 7:24 PM EDT [facility] Monocytes % 13 % LAB HEMATOLOGY METHOD 06/14/2025 7:24 PM EDT [facility] Eosinophils % 4 % LAB HEMATOLOGY METHOD 06/14/2025 7:24 PM EDT [facility] Basophils % 1 % LAB HEMATOLOGY METHOD 06/14/2025 7:24 PM EDT [facility] Immature Granulocytes % 1 % LAB HEMATOLOGY METHOD 06/14/2025 7:24 PM EDT [facility] Neutrophils Absolute 4.56 1.60 - 6.10 10*3/uL LAB HEMATOLOGY METHOD 06/14/2025 7:24 PM EDT [facility] Lymphocytes Absolute 1.97 1.20 - 3.90 10*3/uL LAB HEMATOLOGY METHOD 06/14/2025 7:24 PM EDT [facility] Monocytes Absolute 1.03(H) 0.30 - 0.90 10*3/uL LAB HEMATOLOGY METHOD 06/14/2025 7:24 PM EDT [facility] Eosinophils Absolute 0.31 0.00 - 0.50 10*3/uL LAB HEMATOLOGY METHOD 06/14/2025 7:24 PM EDT [facility] Basophils Absolute 0.04 0.00 - 0.10 10*3/uL LAB HEMATOLOGY METHOD 06/14/2025 7:24 PM EDT [facility] Immature Granulocytes Absolute 0.04 0.00 - 0.06 10*3/uL LAB HEMATOLOGY METHOD 06/14/2025 7:24 PM EDT [facility] Blood Venous blood specimen / Unknown Venipuncture / Unknown 06/14/2025 6:31 PM EDT 06/14/2025 7:06 PM EDT Narrative [facility] - 06/14/2025 7:24 PM EDT Therapeutic decision making should be based on absolute values, rather than percentages. us Luis Angel Bee MD LAB BLOOD ORDERABLES Nadia l Result Performing Organization Address City/[facility]/ZIP Co de Phone Number [facility] [address] [place] [address] * Type and screen (06/14/2025 6:31 PM [...] ORDER MARYA Final Result Performing Organization Address [facility] Co de Phone Number BLOOD BANK [address] [place] [address], * (ABNORMAL) Protime-INR (06/14/2025 6:31 PM EDT) Prothrombin Time 25.9(H) 12.0 - 14.3 sec LAB COAGULATION METHOD 06/14/2025 7:23 PM EDT [facility] INR 2.3(H) 0.9 - 1.1 LAB COAGULATION METHOD 06/14/2025 7:23 PM EDT [facility] Blood Venous blood specimen / Unknown Venipuncture / Unknown 06/14/2025 6:31 PM EDT 06/14/2025 7:05 PM EDT Narrative [facility] - 06/14/2025 7:23 PM EDT OPTIMAL INR RANGES FOR PATIENT ON ORAL ANTICOAGULANT THERAPY Prevention of venous thromboembolism INR 2.0 to 3.0 In patients with heart disease: Atrial fibrillation INR 2.0 to 3.0 Valvular heart disease INR 2.0 to 3.0 Tissue heart valves INR 2.0 to 3.0 Mechanical prosthetic valves INR 2.5 to 3.5 Prevention of recurrent LA INR 2.5 to 3.5 us Luis Angel Bee MD LAB BLOOD ORDERABLES Nadia l Result Performing Organization Address [facility]/ZIP Co de Phone Number [facility] [address] [place] [address] * (ABNORMAL) APTT (06/14/2025 6:31 PM EDT) aPTT 47(H) 25 - 35 sec LAB COAGULATION METHOD 06/14/2025 7:23 PM EDT [facility] Blood Venous blood specimen / Unknown Venipuncture / Unknown 06/14/2025 6:31 PM EDT 06/14/2025 7:05 PM EDT us Luis Angel Bee MD LAB BLOOD ORDERABLES Nadia l Result Performing Organization Address [facility]/ZIP Co de Phone Number [facility] [address] [place] [address] * (ABNORMAL) Comprehensive metabolic panel (06/14/2025 6:31 PM EDT) Glucose, Plasma 86 74 - 99 mg/dL 06/14/2025 7:35 PM EDT [facility] BUN, Plasma 21 8 - 23 mg/dL 06/14/2025 7:35 PM EDT [facility] Creatinine, Plasma 1.28(H) 0.70 - 1.20 mg/dL 06/14/2025 7:35 PM EDT [facility] BUN/Creatinine Ratio 16 06/14/2025 7:35 PM EDT [facility] Sodium, Plasma 135(L) 136 - 145 mmol/L 06/14/2025 7:35 PM EDT [facility] Potassium, Plasma 3.9 3.6 - 4.9 mmol/L 06/14/2025 7:35 PM EDT [facility] Chloride, Plasma 104 97 - 107 mmol/L 06/14/2025 7:35 PM EDT [facility] CO2, Plasma 24 22 - 29 mmol/L 06/14/2025 7:35 PM EDT [facility] Anion Gap 7 6 - 16 mmol/L 06/14/2025 7:35 PM EDT [facility] Total Calcium, Plasma 7.6(L) 8.9 - 10.2 mg/dL 06/14/2025 7:35 PM EDT [facility] Total Protein 5.6(L) 6.3 - 7.9 g/dL 06/14/2025 7:35 PM EDT [facility] Albumin, Plasma 1.8(L) 3.5 - 5.2 g/dL 06/14/2025 7:35 PM EDT [facility] AST, Plasma 38 10 - 50 U/L 06/14/2025 7:35 PM EDT [facility] ALT, Plasma 31 10 - 50 U/L 06/14/2025 7:35 PM EDT [facility] Alkaline Phosphatase, Plasma 178(H) 40 - 115 U/L 06/14/2025 7:35 PM EDT [facility] Total Bilirubin, Plasma 6.6(H) 0.2 - 1.1 mg/dL 06/14/2025 7:35 PM EDT [facility] eGFRcr 62.5 mL/min/1.7 3m*2 06/14/2025 7:35 PM EDT [facility] Comment:Reported eGFRcr in m L/min/1.73m2 is based the CKD-EPI 2020 equation that does not use a race coefficient. Blood Venous blood specimen / Unknown Venipuncture / Unknown 06/14/2025 6:31 PM EDT 06/14/2025 7:05 PM EDT us Luis Angel Bee MD LAB BLOOD ORDERABLES Nadia crockett Result [facility] [address] [place] [address] documented in this encounter Visit Diagnoses Diagnosis [...] dose on Wed06/15/25 at 0730, Until Discontinued 09 (Given - Provid er: Sera Kitchen) rifAXIMin [...] documented as of this encounter Care Teams Shipping Associate Relationship Specialty Start Date End Date Chris Medel MD [address] [place] [address] PCP - General 03/14/25 Ruma Hernández APRN [address] [place] [address] Referring Physician Gastroenterology 07/30/23 documented as of this encounter
--- OUTSIDE RECORDS SUMMARY | 2025-06-15 23:59 | XMS_ITS | Encounter Summary ---
Author Organization [facility] Address [address] [place] [address] Care Team Providers Care Lidar Scientist Name Role Phone Ruma Hernández FLOW COORDINATOR Unavailable [phone] Chris Medel MD Primary Care Provider [phone] Encounter Details Date Type Department Care Team (Late st Contact Info) Description 06/15/2025 11:59 PM EDT Anesthesia Event [facility]ATING ROOM [address] [place] [address] Mary Castellon, LAISHA [address] [facility] [address] [place] [address] Fanta Morrissey APRN [address] [place] [address] Anesthesia Record Procedure Summary Procedure Name Responsible [...] do you attend [facility] or religion services? More than 4 times per year 02/19/2025 Do you belong to any clubs o r organizations such as sikh groups, unions, [employer] or athletic groups, or school groups? Yes [...] do you attend [facility] or religion services? More than 4 times [...] and heating? Not hard at all 06/15/2025 [facility] - Occupational Stress Questionnaire Answer [...] drink first t luisa in the morning (EYE-WIRE TECHNICIAN) to steady your nerves or to get rid of a hangover? 0 06/14/2025 CAGE Questionnaire Score 0 025 Utilities Answer Date Recorded In the past 12 months has th [employer], gas, oil, or water [employer] threatened to shut off services in your [...] occasion? Never 06/15/2025 9:39 AM EDT Dear, Andrae Baron documented as of this encounter Miscellaneous Notes * Anesthesia Preprocedure Evaluation - Mary Castellon PA - 06/15/2025 10:05 AM EDT Procedure Information Date/Time: 06/15/25 1515 Procedure: TRANSPLANT, LIVER Location: [facility] OR / [facility] OR Surgeons: Luis Angel Bee MD HPI David Trina Kiesha is a 65 y.o. male with body [...] Description 09/12/2025 8:30 AM EDT Clinical Support [facility] Center [address] [place] [address] 09/12/2025 10:00 AM EDT Office Visit [facility] [address] [place] [address] Portia Maguire MD [address] [facility] [address] [place] [address] 10/03/2025 12:45 PM EST Office Visit Medical Office Building Urology [address] [facility], [address] [place] [address] Suhail Brock MD [address] [place] [address] 10/18/2025 4:20 PM EST Office Visit [facility] [address] [facility], [address] [place] [address] Moustapha Katz MD [address] [facility] [address] [place] [address] documented as of this encounter Visit Diagnoses [...] documented as of this encounter Care Teams Lidar Scientist Relationship Specialty Start Date End Date Chris Medel MD [address] [place] [address] PCP - General 03/14/25 Ruma Hernández APRN [address] [place], [place] [address] Referring Physician Gastroenterology 07/30/23 documented as of this encounter
--- OUTSIDE RECORDS SUMMARY | 2025-07-11 09:30 | XMS_ITS | Encounter Summary ---
Author Organization [facility] Address [address] [place] [address] Care Team Providers Care Retail Pharmacy Merchandiser Name Role Phone Ruma Hernández FARMWORKER MACHINE Unavailable [phone] Chris Medel MD Primary Care Provider [phone] Encounter Details Date Type Department Care Team (Late st Contact Info) Description 07/11/2025 9:30 AM EDT Social Work [facility] [address] [place] [address] Liliane Jacobs, [place] [phone] Social History Tobacco Use Types Packs/Day Years [...] 02/19/2025 How often do you attend [facility] or cheondoism services? More than 4 times [...] 06/15/2025 How often do you attend [facility] or cheondoism services? More than 4 times [...] and heating? Not hard at all 06/15/2025 [facility] Occupat ional [facility] - Occupational Stress Questionnaire Answer Date Recorded [...] drink first t luisa in the morning (EYE-CHANGE MANAGEMENT LEAD) to steady your nerves or to get rid of a hangover? 0 06/14/2025 CAGE Questionnaire Score 0 025 Utilities Answer Date Recorded In the past 12 months has th [employer], gas, oil, or water [employer] threatened to shut off services in your [...] present at assessment: patient and , Stacy Senior Manager: Meaghan Le RN David Pop is a 65 y.o. male with a diagnosis of decompensated alcohol associated cirrhosis . He is being evaluated for a liver transplant. Primary language: Yi Restorationist/spirituality: Jewish Do you have any cheondoism, ethical or personal objections to accepting blood products, surgery and/or transplant? No Citizenship Where were you born? [place] Family Background and Supportive Relationships Parental information: mother at [facility] [employer] in [facility]; dad Sibling information: 1 brother and 1 sister, both in [place]; good relationship with both Children: son, Lan, ; daughter Gloria; Gloria is in [place], Lan in [place] Marital/relationship status: Stacy, spouse; [phone], 31 years Household composition: patient and spouse Babysit grandkids on occasion, but they are going to daycare soon - young Support / Caregiver Plans Who will be your primary caregiver? Stacy, Health status & availability: works in [place], can work remote if need be - [...] local housing required? No, patient lives in [place], [place], about an hour away Insurance benefit for local housing? N/a Education / Employment / Financial Situation What is your highest level of education? Graduated HS Are you able to read and write? 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 no Have you applied for disability? N/a Do you have short term or extermination supervisor disability available thru work? no Financial Status [...] NANCY - NANCY CANOI* MELE POP* Self [id number] [id number] What is your yearly insurance deductible? $3500 [...] needs for transplant. 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 yes Impression Low Risk -1;Moderate Risk -2;High Risk -3;Absolute contraindication -4 Social Support: 1 Identified Strengths / Risks: patient with good family support and extended support network of friends. present for eval and is able to work remote should she need to. Financial / Insurance: 1 Identified Strengths / Risks: patient with [place] traditional plan until age 66 when he [...] AM EDT Clinical Support [facility] [place] [address] [place] [address] 09/12/2025 10:00 AM EDT Office Visit [facility] [place] [address] [place] [address] Portia Maguire MD [address] [facility] [address] [place] [address] 10/03/2025 12:45 PM EST Office Visit Medical Office Building Urology [address] [facility] [address], [address] [place] [address] Suhail Brock MD [address] [facility] [address] [place] [address] 10/18/2025 4:20 PM EST Office Visit [facility] [place] [facility] [address] [facility] [facility] [facility] [address], [address] [place] [address] Moustapha Katz MD [address] [facility] [address] [place] [address] documented as of this encounter [...] documented as of this encounter Care Teams Retail Pharmacy Merchandiser Relationship Specialty Start Date End Date Chris Medel MD [address] [place] [address] PCP - General 03/14/25 Ruma Hernández APRN [address] [facility] [address] [place] [address] Referring Physician Gastroenterology 07/30/23 documented as of this encounter
--- OUTSIDE RECORDS SUMMARY | 2025-07-11 10:30 | XMS_ITS | Encounter Summary ---
Author Organization Healthcare Address [address] [place] [address] Care Team Providers Care Finish Mender Name Role Phone Ruma Hernández TABLE GAMES MANAGER Unavailable [phone] Chris Medel MD Primary Care Provider [phone] Reason for Visit * Reason Comments Pre-Liver Txp Follow-up Encounter Details Date Type Department Care Team (Late st Contact Info) Description 07/11/2025 10:30 AM EDT Office Visit [facility] [address] [place] [address] Portia Maguire MD [address] [facility] [address] [place] [address] Cirrhosis of liver with ascites, [...] How often do you attend chur or lutheran services? More than 4 times per year 02/19/2025 Do you belong to any clubs o r organizations such as uatsdin groups, [employer], [employer] Lian Shi Dai or athletic groups, or school groups? Yes [...] week 06/15/2025 How often do you attend [facility] or lutheran services? More than 4 times [...] and heating? Not hard at all 06/15/2025 [facility] Occupat ional Health - Occupational [...] drink first t luisa in the morning (EYE-VENEER JOINER) to steady your nerves or to get rid of a hangover? 0 06/14/2025 CAGE Questionnaire Score 0 025 Utilities Answer Date Recorded In the past 12 months has th [employer], gas, oil, or water [employer] threatened to shut off services in your [...] 09/12/2025 8:30 AM EDT Clinical Support [facility] [address] [place] [address] 09/12/2025 10:00 AM EDT Office Visit [facility] [address] [place] [address] Portia Maguire MD [address] [place] [address] 10/03/2025 12:45 PM EST Office Visit Medical Office Building Urology [address], [address] [place] [address] Suhail Brock MD [address] [place] [address] 10/18/2025 4:20 PM EST Office Visit [facility] [address], [address] [place] [address] Moustapha Katz MD [address] [place] [address] documented as of this encounter Visit Diagnoses Diagnosis Cirrhosis of liver with ascites, unspecified hepatic cirrhosis type (CMS/HCC)- Primary Other ascites Pre-liver transplant, listed Alcoholic cirrhosis, unspecified whether ascites present (CMS/HCC) Hemochromatosis associated with compound heterozygous mutation [...] documented as of this encounter Care Teams Finish Mender Relationship Specialty Start Date End Date Chris Medel MD [address] [place], [place] [id number] PCP - General 03/14/25 uRma Hernández APRN [address] [place] [address] Referring Physician Gastroenterology 07/30/23 documented as of this encounter
--- OUTSIDE RECORDS SUMMARY | 2025-07-18 08:19 | XMS_ITS | Encounter Summary ---
Author Organization Healthcare Address [address] [place] [address] Care Team Providers Care Accounting Tutor Name Role Phone Ruma Hernández BONE DRIER Unavailable [phone] Chris Medel MD Primary Care Provider [phone] Encounter Details Date Type Department Care Team (Late st Contact Info) Description 07/05/2025 Results Follow-Up [facility] [address] [place] [address] Meaghan Le, RN [facility] LIVER [id number] [address] [place] [address] Social History Tobacco Use Types [...] often do you attend [facility] or rastafarian services? More than 4 [...] How often do you attend chur or rastafarian services? More than 4 times [...] and heating? Not hard at all 06/15/2025 [facility] of Occupat ional [facility] - Occupational Stress Questionnaire Answer Date [...] drink first t luisa in the morning (EYE-TRAVELING STOREKEEPER) to steady your nerves or to get rid of a hangover? 0 06/14/2025 CAGE Questionnaire Score 0 025 Utilities Answer Date Recorded In the past 12 months has th [employer], gas, oil, or water [employer] threatened to shut off services in your [...] Encounter Note - Portia Maguire MD - 07/09/2025 2:04 PM EDT MELD 3.0: 21 at 07/04/2025 12:00 AM MELD-Na: 20 at 07/04/2025 12:00 AM Calculated from: Serum Creatinine: 0.7 mg/dL (Using min of 1 mg/dL) at 07/04/2025 12:00 AM Serum Sodium: 136 mEq/L at 07/04/2025 12:00 AM Total Bilirubin: 5.1 mg/dL at 07/04/2025 12:00 AM Serum Albumin: 2.3 g/dL at 07/04/2025 12:00 AM INR(ratio): 1.71 at 07/04/2025 12:00 AM Age at listin years Sex: Male at 07/04/2025 12:00 AM * Result Encounter Note - Meaghan Le RN - 07/05/2025 2:10 PM EDT Rpt labs documented in this encounter Plan of Treatment Upcoming Encounters Date Type Department Care Team (Late st Contact Info) Description 09/12/2025 8:30 AM EDT Clinical Support [facility] [place] [address] [facility] [address] [place] [address] 09/12/2025 10:00 AM EDT Office Visit [facility] [place] [address] [place] [address] Portia Maguire MD [address] [facility] [address] [place] [address] 10/03/2025 12:45 PM EST Office Visit Medical Office Building Urology [address] [facility], [address] [place] [address] Suhail Brock MD [address] [facility] [address] [place] [address] 10/18/2025 4:20 PM EST Office Visit Professional [facility] [place] Bone & Mineral Metabolism [address] [facility], [address] [place] [address] Moustapha Katz MD [address] [facility] [address] [place] [address] documented as of this encounter [...] documented as of this encounter Care Teams Accounting Tutor Relationship Specialty Start Date End Date Chris Medel MD [address] [place] [address] PCP - General 03/14/25 Ruma Hernández APRN [address] [place] [address] Referring Physician Gastroenterology 07/30/23 documented as of this encounter
--- OUTSIDE RECORDS SUMMARY | 2025-07-18 08:20 | XMS_ITS | Encounter Summary ---
Author Organization Healthcare Address [address] [place] [address] Care Team Providers Care Geropsychologist Name Role Phone Ruma Hernández LAB SUPPORT TECHNICIAN Unavailable [phone] Chris Medel MD Primary Care Provider [phone] Encounter Details Date Type Department Care Team (Latest Contact Info) Description 07/11/2025 Travel Social History Tobacco Use Types Packs/Day [...] week 06/15/2025 How often do you attend [facility] or adventist services? More than 4 times [...] and heating? Not hard at all 06/15/2025 [facility] of Occupat ional Health - Occupational Stress [...] in the past 12 m [facility], were you homeless or living in [...] drink first t luisa in the morning (EYE-DITCHING MACHINE ENGINEER) to steady your nerves or to [...] Description 09/12/2025 8:30 AM EDT Clinical Support [facility] [address] [place] [address] 09/12/2025 10:00 AM EDT Office Visit [facility] [address] [place] [address] Portia Maguire MD [address] [place] [address] 10/03/2025 12:45 PM EST Office Visit Medical Office Building Urology [facility] [address] [facility], [address] [place] [address] Suhail Brock MD [address] [facility] [address] [place] [address] 10/18/2025 4:20 PM EST Office Visit Professional [facility] Bone & Mineral Metabolism [address], [address] [place] [address] Moustapha Katz MD [address] [facility] [address] [place] [address] documented as of this encounter [...] documented as of this encounter Care Teams Geropsychologist Relationship Specialty Start Date End Date Chris Medel MD [address] [place] [address] PCP - General 03/14/25 Ruma Hernández APRN [address] [place] [address] [address] [place] [address] Referring Physician Gastroenterology 07/30/23 documented as of this encounter
--- OUTSIDE RECORDS SUMMARY | 2025-07-18 08:20 | XMS_ITS | Encounter Summary ---
Author Organization Healthcare Address [address] [place] [address] Care Team Providers Care Piece Presser Name Role Phone Ruma Hernández HEEL SORTER Unavailable [phone] Chris Medel MD Primary Care Provider [phone]- [phone] Encounter Details Date Type Department Care Team [...] often do you attend chur ch or restoration services? More than 4 times per year 02/19/2025 Do you belong to any clubs o r organizations such as shinto groups, unions, fraternal or athletic groups, or [...] week 06/15/2025 How often do you attend [facility] or restoration services? More than 4 times per year 06/15/2025 Do you belong to any clubs o r organizations such as shinto groups, unions, fraternal or athletic groups, or [...] and heating? Not hard at all 06/15/2025 [facility] of Occupat ional Health - Occupational Stress [...] drink first t luisa in the morning (EYE-GAS PUMPING STATION SUPERVISOR) to steady your nerves or to [...] Upcoming Encounters Date Type Department Care Team ([facility] Contact Info) Description 09/12/2025 8:30 AM EDT Clinical Support [facility] [address] [place] [address] 09/12/2025 10:00 AM EDT Office Visit [facility] [place] [address] [place] [address] Portia Maguire MD [address] [place] [address] 10/03/2025 12:45 PM EST Office Visit Medical Office Building Urology [address] [facility], [address] [place] [address] Suhail Brock MD [address] [place] [address] 10/18/2025 4:20 PM EST Office Visit Professional [facility] [place] Bone & Mineral Metabolism [address] [facility], [address] [place] [address] Moustapha Katz MD [address] [facility] [address] [place] [address] documented as of this encounter [...] documented as of this encounter Care Teams Piece Presser Relationship Specialty Start Date End Date Chris Medel MD [address] [place] [address] PCP - General 03/14/25 Ruma Hernández APRN [facility] [place], [place] [address] Referring Physician Gastroenterology 07/30/23 documented as of this encounter
--- OUTSIDE RECORDS SUMMARY | 2025-07-18 08:20 | XMS_ITS | Encounter Summary ---
Author Organization Healthcare Address [address] [place] [address] Care Team Providers Care Psychiatric Np Name Role Phone Ruma Hernández SCUBA DIVING INSTRUCTOR Unavailable [phone] Chris Medel MD Primary Care Provider [phone] Encounter Details Date Type Department Care Team (Late st Contact Info) Description 05/01/2025 Results Follow-Up [facility] [address] [place] [address] Meaghan Le, RN [facility] LIVER [id number] [address] [place] [address] Social History Tobacco Use Types [...] week 02/19/2025 How often do you attend [facility] or oriental orthodox services? More than 4 times per year 02/19/2025 Do you belong to any clubs o r organizations such as shinto groups, unions, [employer] or athletic groups, or school groups? Yes [...] How often do you attend chur or oriental orthodox services? More than 4 [...] and heating? Not hard at all 06/15/2025 [facility] of Occupat ional Health - Occupational Stress [...] drink first t luisa in the morning (EYE-FIXED CAPITAL CLERK) to steady your nerves or to get rid of a hangover? 0 06/14/2025 CAGE Questionnaire Score 0 025 Utilities Answer Date Recorded In the past 12 months has e [employer], gas, oil, or water company threatened to [...] Not at all 06/08/2025 9:04 AM NURYST [facility] Martines Feeling down, depressed, or hopeless Not [...] 09/12/2025 8:30 AM EDT Clinical Support [facility] [address] [place] [address] 09/12/2025 10:00 AM EDT Office Visit [facility] [address] [place] [address] Portia Maguire MD [address] [place] [address] 10/03/2025 12:45 PM EST Office Visit Medical Office Building Urology [address] [facility], [address] [place] [address] Suhail Brock MD [address] [place] [address] 10/18/2025 4:20 PM EST Office Visit Professional [facility] Bone & Mineral Metabolism [address] , [address] [place] [address] Moustapha Katz MD [address] [place] [address] documented as of this encounter [...] documented as of this encounter Care Teams Psychiatric Np Relationship Specialty Start Date End Date Chris Medel MD [address] [place] [address] PCP - General 03/14/25 Ruma Hernández APRN [address] [facility] [address] [place] [address] Referring Physician Gastroenterology 07/30/23 documented as of this encounter
--- OUTSIDE RECORDS SUMMARY | 2025-07-18 08:20 | XMS_ITS | Encounter Summary ---
Author Organization Healthcare Address [address] [place] [address] Care Team Providers Care Multicultural Services Librarian Name Role Phone Ruma Hernández CORE FEEDER Unavailable [phone] Chris Medel MD Primary Care Provider [phone] Encounter Details Date Type Department Care Team (Late st Contact Info) Description 06/14/2025 Results Follow-Up [facility] [address] [place] [address] Meaghan Le, RN [facility] LIVER [id number] [address] [place] [address] Social History Tobacco Use Types [...] week 02/19/2025 How often do you attend [facility] or cheondoism services? More than 4 [...] at all 06/15/2025 [facility] of Occupat ional [facility] - Occupational Stress Questionnaire Answer Date Recorded [...] any time in the past 12 m [facility], were you homeless or [...] drink first t luisa in the morning (EYE-LABORER WRECKING AND SALVAGING) to steady your nerves or to get rid of a hangover? 0 06/14/2025 CAGE Questionnaire Score 0 025 Utilities Answer Date Recorded In the past 12 months has [employer], gas, oil, or water [employer] threatened to shut off services in your [...] [facility] [address] [place] [address] 09/12/2025 10:00 AM EDT Office Visit [facility] [address] [place] [address] Portia Maguire MD [address] [place] [address] 10/03/2025 12:45 PM EST Office Visit Medical Office Building Urology [address] [facility], [address] [place] [address] Suhail Brock MD [address] [place] [address] 10/18/2025 4:20 PM EST Office Visit Professional [facility] Bone & Mineral Metabolism [address] [facility], [address] [place] [address] Moustapha Katz MD [address] [facility] [address] [place] [address] documented as of this encounter [...] documented as of this encounter Care Teams Multicultural Services Librarian Relationship Specialty Start Date End Date Chris Medel MD [address] [place] [address] PCP - General 03/14/25 Ruma Hernández APRN [address] [place] [address] Referring Physician Gastroenterology 07/30/23 documented as of this encounter
--- OUTSIDE RECORDS SUMMARY | 2025-07-18 08:21 | XMS_ITS | Clinical Summary ---
Author Organization [facility] Address [address] [place] [address] Care Team Providers Care Dyed Raw Stock Blower Feeder Name Role Phone ToniUrban morataya DO Primary Care Provider [phone] Allergies Active Allergy Reactions Criticality Noted Date [...] of Phone Billing Address Personal/Family Self 1960 [address] [facility] [address] [place] [address] [facility] BLUE SHIELD PPO Member Subscriber Plan / Payer (Ef fective 2023-Present) Name:David Pop Relation to Subscriber:Self Name:David Pop Payer ID:[id number] ([facility]) Type:Not on file Address: [address] [place] [id number] Care Teams Dyed Raw Stock Blower Feeder Relationship Specialty Start Date End Date Urban Brantley DO [address] [place] [address] PCP - General Internal Medicine 03/22/23
--- OUTSIDE RECORDS SUMMARY | 2025-07-18 08:21 | XMS_ITS | Encounter Summary ---
Author Organization Healthcare Address [address] [place] [address] Care Team Providers Care Real Estate Investor Name Role Phone Ruma Hernández FISCAL ASSISTANT Unavailable [phone] Chris Medel MD Primary Care Provider [phone] Encounter Details Date Type Department Care Team (Late st Contact Info) Description 06/14/2025 Results Follow-Up [facility] [address] [place] [address] Meaghan Le, RN [facility] LIVER [id number] [address] [place] [address] Social History Tobacco Use Types [...] How often do you attend [facility] or rastafari services? More than 4 times [...] hard at all 06/15/2025 [facility] of Occupat ional [facility] - Occupational Stress Questionnaire Answer Date [...] time in the past 12 m [facility], were you homeless or living [...] drink first t luisa in the morning (EYE-COMPOSING MACHINE OPERATOR/TENDER) to steady your nerves or to get rid of a hangover? 0 06/14/2025 CAGE Questionnaire Score 0 025 Utilities Answer Date Recorded In the past 12 months has [employer], gas, oil, or water [employer] threatened to shut off services in your [...] ([facility] st Contact Info) Description 09/12/2025 8:30 AM EDT Clinical Support [facility] Transplant [place] [address] [facility] [address] [place] [address] 09/12/2025 10:00 AM EDT Office Visit [facility] [place] [address] [facility] [address] [place] [address] Portia Maguire MD [address] [facility] [address] [place] [address] 10/03/2025 12:45 PM EST Office Visit Medical Office Building Urology [address] [facility], [address] [place] [address] Suhail Brock MD [address] [facility] [address] [place] [address] 10/18/2025 4:20 PM EST Office Visit Professional [employer] [facility] [place] Bone & Mineral Metabolism [address] [facility], [address] [place] [address] Moustapha Katz MD [address] [facility] [address] [place] [address] documented as of this encounter [...] documented as of this encounter Care Teams Real Estate Investor Relationship Specialty Start Date End Date Chris Medel MD [address] [place] [address] PCP - General 03/14/25 Ruma Hernández APRN [address] [place] [address] Referring Physician Gastroenterology 07/30/23 documented as of this encounter
--- OUTSIDE RECORDS SUMMARY | 2025-07-18 08:22 | XMS_ITS | Encounter Summary ---
Author Organization Healthcare Address [address] [place] [address] Care Team Providers Care Staff Sonographer Name Role Phone Ruma Hernández CHIEF II DISPATCHER Unavailable [phone] Chris Medel MD Primary Care Provider [phone] Encounter Details Date Type Department Care Team [...] 0 06/08/2025 [facility] - Occupational Stress Questionnaire Answer Date [...] drink first t luisa in the morning (EYE-TRACK REPAIR WORKER) to steady your nerves or to [...] Description 09/12/2025 8:30 AM EDT Clinical Support [facility]plant [place] [address] [facility] [address] [place] [address] 09/12/2025 10:00 AM EDT Office Visit [facility] [place] [address] [facility] [address] [place] [address] Portia Maguire MD [address] [facility] [address] [place] [address] 10/03/2025 12:45 PM EST Office Visit Medical Office Building Urology [address] [facility], [address] [place] [address] Suhail Brock MD [address] [facility] [address] [place] [address] 10/18/2025 4:20 PM EST Office Visit Professional [facility] Bone & Mineral Metabolism [address] [facility], [address] [place] [address] Moustapha Katz MD [address] [place] [address] documented as of this encounter [...] as of this encounter Care Teams Staff Sonographer Relationship Specialty Start Date End Date Chris Medel MD [address] [place] [address] PCP - General 03/14/25 Ruma Hernández APRN [address] [place] [address] Referring Physician Gastroenterology 07/30/23 documented as of this encounter
--- OUTSIDE RECORDS SUMMARY | 2025-07-18 08:22 | XMS_ITS | Encounter Summary ---
[facility] Organization [facility] Address [address] [place] [address] Care Team Providers Care Rn Correctional Name Role Phone KaronUrban Hosea CAMARA Primary Care Provider [phone] Encounter Details Date Type Department Care Team (Late st Contact Info) Description 10/14/2023 Telephone [facility] GASTROENTEROLOGY [address] [facility] [address] [place] [address] Ruma Hernández, MOLD CAPPER HELPER [address] [facility] [address] [place], [place] [id number] Social History Tobacco Use Types Packs/Day Years [...] on filedocumented in this encounter Care Teams Rn Correctional Relationship Specialty Start Date End Date Urban Brantley DO [address] [place] [address] PCP - General Internal Medicine 03/22/23 documented as of this encounter
--- OUTSIDE RECORDS SUMMARY | 2025-07-18 08:22 | XMS_ITS | Encounter Summary ---
Author Organization Healthcare Address [address] [place] [address] Care Team Providers Care Patient Care Director Name Role Phone Ruma Hernández FIRE ENGINE OPERATOR Unavailable [phone] Chris Medel MD Primary Care Provider [phone] Encounter Details Date Type Department Care Team (Late st Contact Info) Description 06/25/2025 Telephone [facility] [address] [place] [address] Meaghan Le, RN [facility] [id number] [address] [place] [address] Social History Tobacco Use Types [...] you attend [facility] or rastafarian services? More than 4 times per year 02/19/2025 Do you belong to any clubs o r organizations such as latter-day groups, unions, [employer] or athletic groups, or school groups? Yes [...] and heating? Not hard at all 06/15/2025 [facility] - Occupational [...] time in the past [address] [facility], were you homeless or [...] drink first t luisa in the morning (EYE-DATA INTEGRATION ANALYST) to steady your nerves or to get rid of a hangover? 0 06/14/2025 CAGE Questionnaire Score 0 025 Utilities Answer Date Recorded In the past 12 months has e [employer], gas, oil, or water [employer] threatened to shut off services in your [...] Care [facility] [address] [place] [address] 09/12/2025 10:00 AM EDT Office Visit [facility] [place] [address] [place] [address] Portia Maguire MD [address] [place] [address] 10/03/2025 12:45 PM EST Office Visit Medical Office Building [facility] [address], [address] [place] [address] Suhail Brock MD [address] [facility] [address] [place] [address] 10/18/2025 4:20 PM EST Office Visit [facility] [address] [facility], [address] [place] [address] Moustapha Katz MD [address] [facility] [address] [place] [address] documented as of this encounter [...] documented as of this encounter Care Teams Patient Care Director Relationship Specialty Start Date End Date Chris Medel MD [address] [place] [address] PCP - General 03/14/25 Ruma Hernández APRN [address] [place] [address] [address] [place] [address] Referring Physician Gastroenterology 07/30/23 documented as of this encounter
--- OUTSIDE RECORDS SUMMARY | 2025-07-18 08:22 | XMS_ITS | Encounter Summary ---
Author Organization Healthcare Address [address] [place] [address] Care Team Providers Care Feed Mill Manager Name Role Phone Ruma Hernández RADAR TESTER Unavailable [phone] Chris Medel MD Primary Care Provider [phone] Encounter Details Date Type Department Care Team (Late st Contact Info) Description 06/13/2025 Telephone [facility] [address] [place] [address] Zeferino Trejo, PharmD Social History [...] week 06/15/2025 How often do you attend [facility] or rastafari services? More than 4 times [...] [facility] - Occupational Stress Questionnaire Answer Date [...] drink first t luisa in the morning (EYE-AUTOMOBILE UPHOLSTERER APPRENTICE) to steady your nerves or to get rid of a hangover? 0 06/14/2025 CAGE Questionnaire Score 0 025 Utilities Answer Date Recorded In the past 12 months has th e [employer], gas, oil, or water [employer] threatened to shut off services in your [...] 6. Suicidal Behavior (Lifetime) No 9:23 PM EDChapito Gonzalez documented as of this encounter Plan of Treatment Upcoming Encounters Date Type Department Care Team (Late st Contact Info) Description 09/12/2025 8:30 AM EDT Clinical Support [facility] [place] [address] [facility] [address] [place] [address] 09/12/2025 10:00 AM EDT Office Visit [facility] [place] [address] [facility] [address] [place] [address] Portia Maguire MD [address] [facility] [address] [place] [address] 10/03/2025 12:45 PM EST Office Visit Medical Office Building Urology [address], [address] [place] [address] Suhail Brock MD [address] [facility] [address] [place] [address] 10/18/2025 4:20 PM EST Office Visit [facility] [place] [facility] [address], [address] [place] [address] Moustapha Katz MD [address] [place] [address] documented as of this [...] documented as of this encounter Care Teams Feed Mill Manager Relationship Specialty Start Date End Date Chris Medel MD [address] [place] [address] PCP - General 03/14/25 Ruma Hernández APRN [address] [facility] [address] [place] [address] Referring Physician Gastroenterology 07/30/23 documented as of this encounter
--- OUTSIDE RECORDS SUMMARY | 2025-07-18 08:22 | XMS_ITS | Encounter Summary ---
[facility] [address] [place] [address] Care Team Providers Care [employer] Central Office Installer Name Role Phone KaronUrban Hosea CAMARA Primary Care Provider [phone] Encounter Details Date Type Department Care Team (Late st Contact Info) Description 10/14/[address] [facility] [address] [facility] [address] [place] [address] Ruma Hernández, MASTER MACHINIST [address] [facility] [address] [place], [place] [id number] Social History Tobacco Use Types Packs/Day Years [...] on filedocumented in this encounter Care Teams [employer] Central Office Installer Relationship Specialty Start Date End Date Urban Brantley DO [address] [place] [address] PCP - General Internal Medicine 03/22/23 documented as of this encounter
--- OUTSIDE RECORDS SUMMARY | 2025-07-18 08:23 | XMS_ITS | Clinical Summary ---
Author Organization [facility] Address [address] [place] [address] Care Team Providers Care Hand Violin Maker Name Role Phone Ruma Hernández PLASTICS WORKER Unavailable [phone] Chris Medel MD Primary Care Provider [phone] Allergies Active Allergy Reactions Criticality Noted Date Comments Lisinopril Cough Low 09/15/2021 Medications carvedilol (Coreg) 3.125 MG tabletIndicatio ns:Cirrhosis of liver with ascites, unspecified hepatic cirrhosis type (CMS/HCC) Take 1 tablet (3.125 mg) by mouth 2 (two) times a day with meals. 60 tablet 11 4 025 Active Additional Information Patient not taking.Reported on 07/11/2025 Xifaxan 550 MG tablet Take 1 tablet by mouth 2 times a day. 5 Active ergocalciferol (Vitamin D-2) 1.25 MG (27457 UT) capsule Take 1 capsule by mouth [...] only) 24 capsule 5 5 026 Active spironolactone (Aldactone) 50 MG [...] Encounters Date Type Department Care Team Description 07/11/2025 10:30 AM EDT Office Visit [facility] [address] [place] [phone] Portia Maguire MD Cirrhosis of liver with ascites, unspecified hepatic cirrhosis type (CMS/HCC) (Primary Dx); Other ascites; Pre-liver transplant, listed; Alcoholic cirrhosis, unspecified whether ascites present (CMS/HCC); Hemochromatosis associated with compound heterozygous mutation in HFE gene; Alcohol use disorder, moderate, in sustained remission 07/11/2025 9:30 AM EDT Social Work [facility] [place] [address] [facility] [place] [address] Liliane Jacobs, MOTION PICTURES CARTOONIST 07/11/2025 Travel 07/05/2025 Results Follow-Up [facility] [place] [address] [facility] [place] [address] Meaghan Le, RN 06/29/2025 Results Follow-Up [facility] [place] [id number] [facility] [place] [address] Meaghan Le, RN 06/25/2025 Telephone [facility] [place] [id number] [facility] [place] [address] Meaghan Le, RN 06/21/2025 Results Follow-Up [facility] [place] [address] [facility] [place] [address] Meaghan Le, RN 06/20/2025 Telephone [facility] [place] [address] [facility] [place] [address] Meaghan Le, RN 06/15/2025 11:59 PM EDT Anesthesia Event [facility] OPERATING RO[facility] [address] [place] [address] Mary Castellon PA Benson, Cathryn M, PLASTICS WORKER 06/14/2025 3:47 PM EDT - 06/15/2025 6:14 PM EDT Hospital Encounter [facility] Inpatient [address] [place] [address] Luis Angel Bee MD Alcoholic cirrhosis, unspecified whether ascites present (CMS/HCC) (Primary Dx) Discharge Disposition: Home or Self Care 06/14/2025 Travel 06/14/2025 Results Follow-Up [facility] [address] [facility] [address] [place] [phone] Meaghan Le RN 06/14/2025 Results Follow-Up [facility] [address] [facility] [address] [place] [address] Meaghan Le, RN 06/13/2025 12:57 PM EDT - 06/13/2025 11:59 PM EDT Hospital Encounter [facility] Radiology [address] [place] [address] Chris Knott RN Pre-liver transplant, listed Discharge Disposition: Home or Self Care 06/13/2025 10:36 AM EDT - 06/13/2025 12:56 PM EDT Hospital Encounter Cardiac Imaging [address] [place] [address] Pre-liver transplant, listed Discharge Disposition: Home or Self Care 06/13/2025 9:56 AM EDT - 06/13/2025 10:35 AM EDT Hospital Encounter [facility] [address] [place] [address] Alcoholic cirrhosis, unspecified whether ascites present (CMS/HCC) Discharge Disposition: Home or Self Care 06/13/2025 8:00 AM EDT Office Visit [facility] [place] [address] [facility] [address] [place] [phone] Portia Maguire MD Alcoholic cirrhosis, unspecified [...] - 06/13/2025 9:55 AM EDT Hospital Encounter [facility] [address] [place] [address] Pre-liver transplant, listed Discharge Disposition: Home or Self Care 06/13/2025 Telephone [facility] [address] [place] [address] Zeferino Trejo, PharmD 06/13/2025 Travel 06/08/2025 12:20 PM EDT Office Visit [facility] [address] , [address] [place] [phone] Moustapha Katz MD Age-related osteoporosis without current pathological fracture (Primary Dx) 06/08/2025 8:35 AM EDT - 06/08/2025 11:59 PM EDT Hospital Encounter [facility] [address] , [address] [place] [address] Other osteoporosis without current pathological fracture Discharge Disposition: Home or Self Care 06/08/2025 Travel 06/07/2025 Telephone [facility] [address], [address] [place] [address] Mary Chatman LPN 06/06/2025 Telephone [facility] [address] [place] [address] Mell Masterson RN 06/05/2025 Travel 06/05/2025 Results Follow-Up [facility] [address] [address] Meaghan Le, RN 05/22/2025 Telephone [facility] [address] [address] Meaghan Le, RN 05/01/2025 Results Follow-Up [facility] [address] [address] Meaghan Le, RN from Last 3 Months [...] you attend [facility] or hinduism services? More than 4 times [...] time in the past 12 m [facility], were you homeless or living [...] drink first t luisa in the morning (EYE-DREDGE PUMPER) to steady your nerves or to get [...] Mass Index 34.16 07/11/2025 9:21 AM EDT Plan of Treatment Upcoming Encounters Date Type Department Care Team (Late st Contact Info) Description 09/12/2025 8:30 AM EDT Clinical Support [facility] [address] [place] [address] 09/12/2025 10:00 AM EDT Office Visit [facility] [address] [place] [address] Portia Maguire MD [address] [place] [phone] 10/03/2025 12:45 PM EST Office Visit Medical Office Building Urology [address] [facility], [address] [place] [address] Suhail Brock MD [address] [facility] [address] [place] [address] 10/18/2025 4:20 PM EST Office Visit [facility] [facility] [address] [facility], [address] [place] [address] Moustapha Katz MD [address] [facility] [address] [place] [address] Health Maintenance Due Date Last [...] - Risk 60-74 years 1-dose series) 2021 [id number] Vaccine (1 - season) 2025 [facility]-Influenza Vaccine (#1) 2025 [facility]- SDOH Screenings 12/16/2025 [facility]-Adult SDOH Screenings 12/16/2025 06/15/2025 [facility]-Bone Density Scan 06/08/2026 06/08/2025, 024 [facility]-Depression Screening 07/11/2026 07/11/2025, 09/16 [facility]-HIV Screening Completed 06/14/2025, 04/11/2024 [facility]-Hepatitis C Screening Completed 2024, 06/14/2025, 08/03/2023 [facility]-Obesity Intervention Completed 025, 06/14/2025, 06/13/2025, Additional history exists HPV Vaccines Aged Out [...] Procedure Name Priority Date/Time Associated Diagnosis Comments PAIN MANAGEMENT, QUANTITATIVE URINE DRUG TESTING Routine 07/11/2025 8:27 AM EDT Pre-liver transplant, patient on transplant list ALCOHOL, URINE Routine 07/11/2025 8:27 AM EDT Pre-liver transplant, patient on transplant list CBC W/O DIFFERENTIAL Routine 07/11/2025 8:27 AM EDT Pre-liver transplant, patient on transplant list COMPREHENSIVE METABOLIC PANEL, PLASMA Routine 07/11/2025 8:27 AM EDT Pre-liver transplant, patient on transplant list COMPREHENSIVE URINE DRUG SCREENING,QUALITATIVE ASSAY, >= 27 DRUG CLASSES Routine 07/11/2025 8:27 AM EDT Pre-liver transplant, patient on transplant list NICOTINE AND COTININE METABOLITE, SERUM, QUANTITATIVE Routine 07/11/2025 8:27 AM EDT Pre-liver transplant, patient on transplant list PAIN MANAGEMENT, QUANTITATIVE URINE DRUG TESTING Routine 07/11/2025 8:27 AM EDT Pre-liver transplant, patient on transplant list PROTHROMBIN TIME(PT) / INR Routine 07/11/2025 8:27 AM EDT Pre-liver transplant, patient on transplant list COMPREHENSIVE METABOLIC PANEL, PLASMA Routine 07/04/2025 CBC W/O DIFFERENTIAL Routine 07/04/2025 PROTHROMBIN TIME(PT) / INR Routine 07/04/2025 COMPREHENSIVE METABOLIC PANEL, PLASMA Routine 06/27/2025 CBC [...] 04/30/2025 from Last 3 Months Results * Pain Management, Quantitative Urine Drug Testing (07/11/2025 8:27 AM EDT) Only the most recent of2 resultswithin the time period is included. Alpha [place] Alprazolam <20 <20 ng/mL 07/12 1:45 PM EDT [facility] Alpha [place] Midazolam <20 <20 ng/mL 2024 1:45 PM EDT [facility] Alpha [place] Triazolam <20 <20 ng/mL 2024 1:45 PM EDT [facility] Alprazolam <10 <10 ng/mL 07/12/2025 1:45 PM EDT [facility] Aminoclonazepam <20 <20 ng/mL 1:45 PM EDT [facility] Amphetamine <50 <50 ng/mL 07/12/2025 1:45 PM EDT [facility] Benzoylecgonine <50 <50 ng/mL 1:45 PM EDT [facility] Buprenorphine <10 <10 ng/mL 07/12/2025 1:45 PM EDT [facility] Buprenorphine Glucuronide <50 <50 ng/mL 07/12/2025 1:45 PM EDT [facility] Butalbital <50 <50 ng/mL 07/12/2025 1:45 PM EDT [facility] 9 Carboxy THC <10 <10 ng/mL 07/12/2025 1:45 PM EDT [facility] 9 Carboxy THC Glucuronide <25 <25 ng/mL 07/12/2025 1:45 PM EDT [facility] Clonazepam <10 <10 ng/mL 07/12/2025 1:45 PM EDT [facility] Codeine <50 <50 ng/mL 07/12/2025 1:45 PM EDT [facility] Codeine Glucuronide <50 <50 ng/mL 07/12 1:45 PM EDT [facility] Cyclobenzaprine <50 <50 ng/mL 1:45 PM EDT [facility] Desmethyl Tramadol <50 <50 ng/mL 2024 1:45 PM EDT [facility] Diazepam <10 <10 ng/mL 07/12/2025 1:45 PM EDT [facility] EDDP - Methadone Metabolite <50 <50 ng/mL 07/12/2025 1:45 PM EDT [facility] Fentanyl <1 <1 ng/mL 07/12/2025 1:45 PM EDT [facility] Hydrocodone <50 <50 ng/mL 07/12/2025 1:45 PM EDT [facility] Hydromorphone <50 <50 ng/mL 07/12/2025 1:45 PM EDT [facility] Hydromorphone Glucuronide <50 <50 ng/mL 07/12/2025 1:45 PM EDT [facility] Lorazepam <20 <20 ng/mL 07/12/2025 1:45 PM EDT [facility] Lorazepam Glucuronide <50 <50 ng/mL 07/12/2025 1:45 PM EDT [facility] MDA <50 <50 ng/mL 07/12/2025 1:45 PM EDT [facility] MDMA <50 <50 ng/mL 07/12/2025 1:45 PM EDT [facility] Meperidine <50 <50 ng/mL 07/12/2025 1:45 PM EDT [facility] Methadone <50 <50 ng/mL 07/12/2025 1:45 PM EDT [facility] Methamphetamine <50 <50 ng/mL 1:45 PM EDT [facility] Methylphenidate <50 <50 ng/mL 1:45 PM EDT [facility] 6 Monoacetyl morphine <10 <10 ng/mL 07/12/2025 1:45 PM EDT [facility] Morphine <50 <50 ng/mL 07/12/2025 1:45 PM EDT [facility] Morphine Glucuronide <50 <50 ng/mL 06/16 1:45 PM EDT [facility] Naloxone <50 <50 ng/mL 07/12/2025 1:45 PM EDT [facility] Naloxone Glucuronide <50 <50 ng/mL 06/16 1:45 PM EDT [facility] Norbuprenorphine <10 <10 ng/mL 07/12/20 1:45 PM EDT [facility] Norbuprenorphine Glucuronide <50 <50 ng/mL 07/12/2025 1:45 PM EDT [facility] Nordiazepam <20 <20 ng/mL 07/12/2025 1:45 PM EDT [facility] Norfentanyl <2 <2 ng/mL 07/12/2025 1:45 PM EDT [facility] Normeperidine <50 <50 ng/mL 07/12/2025 1:45 PM EDT [facility] PCP Quant, Ur <50 <50 ng/mL 07/12/2025 1:45 PM EDT [facility] Phenobarbital <50 <50 ng/mL 07/12/2025 1:45 PM EDT [facility] Oxazepam <20 <20 ng/mL 07/12/2025 1:45 PM EDT [facility] Oxazepam Glucuronide <50 <50 ng/mL 06/16 1:45 PM EDT [facility] Oxycodone <50 <50 ng/mL 07/12/2025 1:45 PM EDT [facility] Oxymorphone <50 <50 ng/mL 07/12/2025 1:45 PM EDT [facility] Oxymorphone Glucuronide <50 <50 ng/mL 07/12/2025 1:45 PM EDT [facility] Secobarbital <50 <50 ng/mL 07/12/2025 1:45 PM EDT [facility] Tramadol <50 <50 ng/mL 07/12/2025 1:45 PM EDT [facility] Temazepam <20 <20 ng/mL 07/12/2025 1:45 PM EDT [facility] Temazepam Glucuronide <50 <50 ng/mL 07/12/2025 1:45 PM EDT [facility] Urine Urine specimen obtained by clean catch procedure / Unknown Non-blood Collection / Unknown 07/11/2025 8:27 AM EDT 07/11/2025 9:07 AM EDT Narrative [facility] - 07/12/2025 1:45 PM EDT This report is intended for use [...] laboratory. Test performed by LC-MS/MS at the [facility]. This test was developed and its performance characteristics determined by [facility]. It has not been cleared or approved by the FDA. The laboratory is regulated under CLIA as qualified to perform high-complexity testing. This test is used for clinical purposes. Portia Maguire MD LAB URINE ORDERABLES Nadia l Result Performing Organization Address [facility] Co de Phone Number [facility] [address] [place] [address] * Nicotine Cotinine Metabolite (07/11/2025 8:27 AM EDT) Only the most recent of2 resultswithin the time period is included. NICOTINE <5 <5 ng/mL 07/12/2025 3:1 7 PM EDT [facility] Cotinine <5 <5 ng/mL 07/12/2025 3:1 7 PM EDT [facility] Blood Venous blood specimen / Unknown Venipuncture / Unknown 07/11/2025 8:27 AM EDT 07/11/2025 8:44 AM EDT Narrative [facility] - 07/12/2025 3:17 PM EDT Testing performed by LC-MS/MS at the [facility] Special Chemistry/Toxicology Laboratory. This test was developed and its performance characteristics determined by [facility]. This assay has not been cleared by the FDA. The laboratory is regulated under CLIA as qualified to perform high-complexity testing. This test is used for clinical purposes. Portia Maguire MD LAB BLOOD ORDERABLES Nadia l Result Performing Organization Address [facility] Co de Phone Number [facility] [address] [place] [address] * Alcohol Urine (07/11/2025 8:27 AM EDT) Only the most recent of2 resultswithin the time period is included. Alcohol Urine Negative Negative 07/11/2025 1:32 PM EDT [facility] Urine Urine specimen obtained by clean catch procedure / Unknown Non-blood Collection / Unknown 07/11/2025 8:27 AM EDT 07/11/2025 9:03 AM EDT Narrative [facility] - 07/11/2025 1:32 PM EDT The correlation between urine and serum ethanol concentration is highly variable. Test performed by Gas Chromatography at the [facility] Chemistry Laboratory. This test was developed and its performance characteristics determined by [facility]. It has not been cleared or approved by the FDA.The laboratory is regulated under CLIA as qualified to perform high-complexity testing. This test is used for clinical purposes only. us Portia Maguire MD LAB URINE ORDERABLES Nadia crockett Result [facility] [address] [place] [address] * (ABNORMAL) Comprehensive Urine Drug Screening, Qualitative Assay, >= 27 Drug Classes (58:27 AM EDT) Only the most recent of2 resultswithin the time period is included. Acetaminophen Positive(A) Negative 07/13/2025 1:39 AM EDT [facility] Alprazolam Negative Negative 07/13/2025 1:39 AM EDT [facility] Amantadine Negative Negative 07/13/2025 1:39 AM EDT [facility] Amitriptyline Negative Negative 07/13/2025 1:39 AM EDT [facility] Amphetamine Negative Negative 07/13/2025 1:39 AM EDT [facility] Atenolol Negative Negative 07/13/2025 1:39 AM EDT [facility] Benzoylecgonine Negative Negative 1:39 AM EDT [facility] Bisoprolol Negative Negative 07/13/2025 1:39 AM EDT [facility] Bupropion Negative Negative 07/13/2025 1:39 AM EDT [facility] Butalbital Negative Negative 07/13/2025 1:39 AM EDT [facility] Carbamazepine Negative Negative 07/13/2025 1:39 AM EDT [facility] Carisoprodol Negative Negative 07/13/2025 1:39 AM EDT [facility] Chlorpheniramine Negative Negative 07/13/20 1:39 AM EDT [facility] Citalopram Negative Negative 07/13/2025 1:39 AM EDT [facility] Clindamycin Negative Negative 07/13/2025 1:39 AM EDT [facility] Clonidine Negative Negative 07/13/2025 1:39 AM EDT [facility] Clopidogrel / Ticlopidine Negative Negative 07/13/2025 1:39 AM EDT [facility] Cocaethylene Negative Negative 07/13/2025 1:39 AM EDT [facility] Cocaine Negative Negative 07/13/2025 1:39 AM EDT [facility] Codeine Negative Negative 07/13/2025 1:39 AM EDT [facility] Cyclobenzaprine Negative Negative 1:39 AM EDT [facility] Desvenlafaxine Negative Negative 07/13/2025 1:39 AM EDT [facility] Dextromethorphan Negative Negative 07/13/20 1:39 AM EDT [facility] Diazepam Negative Negative 07/13/2025 1:39 AM EDT [facility] Diltiazem Negative Negative 07/13/2025 1:39 AM EDT [facility] Diphenhydramine Negative Negative 1:39 AM EDT [facility] Doxepine Negative Negative 07/13/2025 1:39 AM EDT [facility] Doxylamine Negative Negative 07/13/2025 1:39 AM EDT [facility] EDDP-Methadone metabolite Negative Negative 07/13/2025 1:39 AM EDT [facility] Fentanyl Negative Negative 07/13/2025 1:39 AM EDT [facility] Fluconazole Negative Negative 07/13/2025 1:39 AM EDT [facility] Fluoxetine Negative Negative 07/13/2025 1:39 AM EDT [facility] Guaifenesin Negative Negative 07/13/2025 1:39 AM EDT [facility] Haloperidol Negative Negative 07/13/2025 1:39 AM EDT [facility] Heroin/6-MARY Negative Negative 07/13/2025 1:39 AM EDT [facility] Hydrocodone Negative Negative 07/13/2025 1:39 AM EDT [facility] Hydroxyzine / Cetirizine metabolite Negative Negative 07/13/2025 1:39 AM EDT [facility] Ibuprofen Negative Negative 07/13/2025 1:39 AM EDT [facility] Imipramine Negative Negative 07/13/2025 1:39 AM EDT [facility] Ketamine Negative Negative 07/13/2025 1:39 AM EDT [facility] Labetolol Negative Negative 07/13/2025 1:39 AM EDT [facility] Lamotrigine Negative Negative 07/13/2025 1:39 AM EDT [facility] Levetiracetam Negative Negative 07/13/2025 1:39 AM EDT [facility] Lidocaine Negative Negative 07/13/2025 1:39 AM EDT [facility] MDA Negative Negative 07/13/2025 1:39 AM EDT [facility] MDMA Negative Negative 07/13/2025 1:39 AM EDT [facility] Memantine Negative Negative 07/13/2025 1:39 AM EDT [facility] Meperidine Negative Negative 07/13/2025 1:39 AM EDT [facility] Meprobamate Negative Negative 07/13/2025 1:39 AM EDT [facility] Metaxalone Negative Negative 07/13/2025 1:39 AM EDT [facility] Methamphetamine Negative Negative 1:39 AM EDT [facility] Methocarbamol Negative Negative 07/13/2025 1:39 AM EDT [facility] Methylecgonine Negative Negative 07/13/2025 1:39 AM EDT [facility] Metoclopramide Negative Negative 07/13/2025 1:39 AM EDT [facility] Metoprolol Negative Negative 07/13/2025 1:39 AM EDT [facility] Metronidazole Negative Negative 07/13/2025 1:39 AM EDT [facility] Midazolam Negative Negative 07/13/2025 1:39 AM EDT [facility] Midazolam Metabolite Negative Negative 07/13/2025 1:39 AM EDT [facility] Mirtazapine Negative Negative 07/13/2025 1:39 AM EDT [facility] Misc Test Result Negative Negative 07/13/20 1:39 AM EDT [facility] Naproxen Negative Negative 07/13/2025 1:39 AM EDT [facility] Nefazodone Negative Negative 07/13/2025 1:39 AM EDT [facility] Norfentanyl Negative Negative 07/13/2025 1:39 AM EDT [facility] Nortriptyline Negative Negative 07/13/2025 1:39 AM EDT [facility] Ordanstron Negative Negative 07/13/2025 1:39 AM EDT [facility] Oxcarbazepine Negative Negative 07/13/2025 1:39 AM EDT [facility] Oxycodone Negative Negative 07/13/2025 1:39 AM EDT [facility] Paroxethine Negative Negative 07/13/2025 1:39 AM EDT [facility] Phenobarbital Negative Negative 07/13/2025 1:39 AM EDT [facility] Phentermine Negative Negative 07/13/2025 1:39 AM EDT [facility] Phenytoin Negative Negative 07/13/2025 1:39 AM EDT [facility] Primidone Negative Negative 07/13/2025 1:39 AM EDT [facility] Promethazine Negative Negative 07/13/2025 1:39 AM EDT [facility] Propofol Negative Negative 07/13/2025 1:39 AM EDT [facility] Propranolol Negative Negative 07/13/2025 1:39 AM EDT [facility] Quetiapine Negative Negative 07/13/2025 1:39 AM EDT [facility] Quinine Negative Negative 07/13/2025 1:39 AM EDT [facility] Rantidine Negative Negative 07/13/2025 1:39 AM EDT [facility] Sertraline Negative Negative 07/13/2025 1:39 AM EDT [facility] Spironolactone Positive(A) Negative 1:39 AM EDT [facility] Tizanidine Negative Negative 07/13/2025 1:39 AM EDT [facility] Topiramate Negative Negative 07/13/2025 1:39 AM EDT [facility] Tramadol Negative Negative 07/13/2025 1:39 AM EDT [facility] Trazadone/ Trazadone metabolite Negative Negative 07/13/2025 1:39 AM EDT [facility] Trimethoprim Negative Negative 07/13/2025 1:39 AM EDT [facility] Valproic Acid Negative Negative 07/13/2025 1:39 AM EDT [facility] Venlafaxine Negative Negative 07/13/2025 1:39 AM EDT [facility] Verapamil Negative Negative 07/13/2025 1:39 AM EDT [facility] Zolpidem Negative Negative 07/13/2025 1:39 AM EDT [facility] Xylazine Negative Negative 07/13/2025 1:39 AM EDT [facility] Urine Urine specimen obtained by clean catch procedure / Unknown Non-blood Collection / Unknown 07/11/2025 8:27 AM EDT 07/11/2025 9:07 AM EDT us Portia Maguire MD LAB URINE ORDERABLES Nadia l Result Performing Organization Address City/State/[facility] Co de Phone Number [facility] [address] [place] [address] * (ABNORMAL) Protime-INR (07/11/2025 8:27 AM EDT) Only the most recent of8 resultswithin the time period is included. Prothrombin Time 21.4(H) 12.0 - 14.3 sec LAB COAGULATION METHOD 07/11/2025 9:04 AM EDT [facility] INR 1.8(H) 0.9 - 1.1 LAB COAGULATION METHOD 07/11/2025 9:04 AM EDT [facility] Blood Venous blood specimen / Unknown Venipuncture / Unknown 07/11/2025 8:27 AM EDT 07/11/2025 8:44 AM EDT Narrative [facility] - 07/11/2025 9:04 AM EDT OPTIMAL INR RANGES FOR PATIENT ON ORAL ANTICOAGULANT THERAPY Prevention of venous thromboembolism INR 2.0 to 3.0 In patients with heart disease: Atrial fibrillation INR 2.0 to 3.0 Valvular heart disease INR 2.0 to 3.0 Tissue heart valves INR 2.0 to 3.0 Mechanical prosthetic valves INR 2.5 to 3.5 Prevention of recurrent ID INR 2.5 to 3.5 us Portia Maguire MD LAB BLOOD ORDERABLES Nadia crockett Result [facility] [address] [place] [address] * (ABNORMAL) CBC w/o differential (07/11/2025 8:27 AM EDT) Only the most recent of7 resultswithin the time period is included. WBC Count 5.59 3.70 - 10.30 10*3/uL LAB HEMATOLOGY METHOD 07/11/2025 8:56 AM EDT [facility] RBC Count 3.21(L) 4.60 - 6.10 10*6/uL LAB HEMATOLOGY METHOD 07/11/2025 8:56 AM EDT [facility] HGB 10.9(L) 13.7 - 17.5 g/dL LAB HEMATOLOGY METHOD 07/11/2025 8:56 AM EDT [facility] HCT 34.3(L) 40.0 - 51.0 % LAB HEMATOLOGY METHOD 07/11/2025 8:56 AM EDT [facility] Platelet Count 77(L) 155 - 369 10*3/uL LAB HEMATOLOGY METHOD 07/11/2025 8:56 AM EDT [facility] MCV 107(H) 79 - 98 fL LAB HEMATOLOGY METHOD 07/11/2025 8:56 AM EDT [facility] MCH 34.0(H) 26.0 - 32.0 pg LAB HEMATOLOGY METHOD 07/11/2025 8:56 AM EDT [facility] MCHC 31.8 30.7 - 35.5 g/dL LAB HEMATOLOGY METHOD 07/11/2025 8:56 AM EDT [facility] RDW 16.0(H) 11.5 - 14.5 % LAB HEMATOLOGY METHOD 07/11/2025 8:56 AM EDT [facility] MPV 10.4 8.8 - 12.5 fL LAB HEMATOLOGY METHOD 07/11/2025 8:56 AM EDT [facility] nRBC 0.0 <=0.0 per 100 WBCs LAB HEMATOLOGY METHOD 07/11/2025 8:56 AM EDT [facility] Blood Venous blood specimen / Unknown Venipuncture / Unknown 07/11/2025 8:27 AM EDT 07/11/2025 8:46 AM EDT us Portia Maguire MD LAB BLOOD ORDERABLES Nadia crockett Result [facility] [address] [place] [address] * (ABNORMAL) Comprehensive metabolic panel (07/11/2025 8:27 AM EDT) Only the most recent of8 resultswithin the time period is included. Glucose, Plasma 86 74 - 99 mg/dL 07/11/2025 9:27 AM EDT [facility] BUN, Plasma 13 8 - 23 mg/dL 07/11/2025 9:27 AM EDT [facility] Creatinine, Plasma 0.80 0.70 - 1.20 mg/dL 07/11/2025 9:27 AM EDT [facility] BUN/Creatinine Ratio 16 07/11/2025 9:27 AM EDT [facility] Sodium, Plasma 135(L) 136 - 145 mmol/L 07/11/2025 9:27 AM EDT [facility] Potassium, Plasma 4.2 3.6 - 4.9 mmol/L 07/11/2025 9:27 AM EDT [facility] Chloride, Plasma 105 97 - 107 mmol/L 07/11/2025 9:27 AM EDT [facility] CO2, Plasma 24 22 - 29 mmol/L 07/11/2025 9:27 AM EDT [facility] Anion Gap 6 6 - 16 mmol/L 07/11/2025 9:27 AM EDT [facility] Total Calcium, Plasma 8.0(L) 8.9 - 10.2 mg/dL 07/11/2025 9:27 AM EDT [facility] Total Protein 6.5 6.3 - 7.9 g/dL 07/11/2025 9:27 AM EDT [facility] Albumin, Plasma 2.2(L) 3.5 - 5.2 g/dL 07/11/2025 9:27 AM EDT [facility] AST, Plasma 50 10 - 50 U/L 07/11/2025 9:27 AM EDT [facility] ALT, Plasma 34 10 - 50 U/L 07/11/2025 9:27 AM EDT [facility] Alkaline Phosphatase, Plasma 173(H) 40 - 115 U/L 07/11/2025 9:27 AM EDT [facility] Total Bilirubin, Plasma 3.8(H) 0.2 - 1.1 mg/dL 07/11/2025 9:27 AM EDT [facility] eGFRcr 98.8 mL/min/1.7 3m*2 07/11/2025 9:27 AM EDT [facility] Comment:Reported eGFRcr in m L/min/1.73m2 is based the CKD-EPI 2020 equation that does not use a race coefficient. Blood Venous blood specimen / Unknown Venipuncture / Unknown 07/11/2025 8:27 AM EDT 07/11/2025 8:44 AM EDT us Portia Maguire MD LAB BLOOD ORDERABLES Nadia l Result [facility] [address] [place] [address] * ECG Adult (06/15/2025 10:35 AM EDT) EKG DIAGNOSIS CLASS Abnormal MUSE ECG Ventricular Rate 65 BPM MUSE ECG Atrial Rate 65 BPM MUSE ECG MS Interval 162 ms MUSE ECG QRSD Interval 86 ms MUSE ECG QT Interval 446 ms MUSE ECG QTC Interval 463 ms MUSE ECG P [place] 4 degrees MUSE ECG R [place] 58 degrees MUSE ECG T Wave [place] 22 degrees MUSE ECG Diagnosis Normal sinus rhythm MUSE ECG Diagnosis Cannot rule out Anterior infarct , age undetermined MUSE ECG Diagnosis Abnormal ECG MUSE ECG Diagnosis MUSE ECG Diagnosis Confirmed by Max Gregorio ([id number]) on 06/15/2025 3:47:28 PM MUSE ECG 06/15/2025 10:3 5 AM EDT 06/15/2025 3:47 PM EDT Mary INTERIANO ECG ORDERABLES Final Result MUSE ECG * Leticia auris Surveillance by PCR (06/14/2025 6:47 PM EDT) Pathologist [facility] [place] Leticia auris PCR Result Not Detected Not Detected 06/18/2025 5:43 AM EDT [facility] Swab (Axilla and Groin) Non-blood Collection / Unknown 06/14/2025 6:47 PM EDT 06/14/2025 7:49 PM EDT Narrative [facility] - 06/18/2025 5:43 AM EDT This PCR assay was developed and its performance characteristics determined by [facility] as appropriate for clinical purposes. This assay has not been cleared or approved by the FDA, but is performed in a CLIA regulated laboratory that is qualified to perform high-complexity testing. Luis Angel Bee MD LAB MICROBIOLOGY - GENERA L ORDERABLES Final Result [facility] [address] [place] [address] * SARS CoV-2/COVID-19 by PCR - Rapid (06/14/2025 6:47 PM EDT) Pathologist [facility] [place] SARS CoV-2/COVID-1 9 RNA PCR Result Not Detected Not Detected 06/14/2025 8:35 PM EDT [facility] Swab Nasopharyngeal structure / Unknown Non-blood Collection / Unknown 06/14/2025 6:47 PM EDT 06/14/2025 7:49 PM EDT Narrative [facility] - 06/14/2025 8:35 PM [...] L ORDERABLES Final Result Performing Organization Address [facility] Co de Phone Number [facility] [address] [place] [address] * (ABNORMAL) Hepatitis B Surface Antibody, Quantitative (06/14/2025 6:31 PM EDT) Pathologist [facility] [place] Hepatitis B Surface Antibody, Quantitative 34.47(H) NonReacti ve: <8, Grayzone: 8 - <12, Reactive: >= 12 mIU/mL 06/14/2025 8:18 PM EDT [facility] Comment: Reactive. Individual is considered immune to HBV infection. Blood Venous blood specimen / Unknown Venipuncture / Unknown 06/14/2025 6:31 PM EDT 06/14/2025 7:05 PM EDT us Luis Angel Bee MD LAB BLOOD ORDERABLES Nadia l Result Performing Organization Address City/[facility]/ZIP Co de Phone Number [facility] [address] [place] [address] * Light Green Top (06/14/2025 6:31 PM EDT) Pathologist [facility] Extra Hold for add-ons 06/14/2025 11:01 PM EDT [facility] Comment:Auto resulted. Blood Venous blood specimen / Unknown 06/14/2025 6:31 PM EDT 06/14/2025 8:12 PM EDT Result Neto Bee MD LAB BLOOD ORDERABLES Nadia l Result Performing Organization Address City/[facility]/ZIP Co de Phone Number [facility] [address] [place] [address] * Red Top (06/14/2025 6:31 PM EDT) Pathologist [facility] [place] Extra Hold for add-ons 06/14/2025 11:01 PM EDT [facility] Comment:Auto resulted. Blood Venous blood specimen / Unknown 06/14/2025 6:31 PM EDT 06/14/2025 8:12 PM EDT Result [facility] us Luis Angel Bee MD LAB BLOOD ORDERABLES Nadia l Result Performing Organization Address [facility] Co de Phone Number [facility] [address] [place] [address] * Hepatitis C Virus (HCV) Quantitative PCR (06/14/2025 6:31 PM EDT) Pathologist [facility] [place] Hepatitis C Virus (HCV) Quantitative Interpretation Not Detected Not Detected. 06/18/2025 10:15 PM EDT [facility] Blood Venous blood specimen / Unknown Venipuncture / Unknown 06/14/2025 6:31 PM EDT 06/15/2025 8:51 AM EDT Narrative [facility] - 06/18/2025 10:15 PM EDT [...] ORDERABLES Nadia l Result Performing Organization Address [facility]/ZIP Co de Phone Number [facility] [address] [place] [address] * HIV 1 & 2 Antibody/Antigen Screen (06/14/2025 6:31 PM EDT) HIV 1 & 2 Antibody/Antigen Screen Non Reactive Non Reactive 06/14/2025 7:45 PM EDT [facility] Comment:Screening for HIV 1 & 2 antibodies, and P24 antigen is NONREACTIVE. No confirmatory testing is required. Blood Venous blood specimen / Unknown Venipuncture / Unknown 06/14/2025 6:31 PM EDT 06/14/2025 7:05 PM EDT us Luis Angel Bee MD LAB BLOOD ORDERABLES Nadia l Result Performing Organization Address [facility]/[place] [address] * Hepatitis C Antibody (06/14/2025 6:31 PM EDT) Pathologist [facility] [place] Hepatitis C Antibody Negative Negative 06/14/2025 7:45 PM EDT [facility] Blood Venous blood specimen / Unknown Venipuncture / Unknown 06/14/2025 6:31 PM EDT 06/14/2025 7:05 PM EDT us Luis Angel Bee MD LAB BLOOD ORDERABLES Nadia l Result Performing Organization Address City/[facility]/ZIP Co de Phone Number [facility] [address] [place] [address] * Hepatitis B Core Total Antibody IgG,IgM (06/14/2025 6:31 PM EDT) Hepatitis B Core Total Antibody IgG,IgM Negative Negative 06/14/2025 8:18 PM EDT [facility] Blood Venous blood specimen / Unknown Venipuncture / Unknown 06/14/2025 6:31 PM EDT 06/14/2025 7:05 PM EDT us Luis Angel Bee MD LAB BLOOD ORDERABLES Nadia l Result [facility] [address] [place] [address] * (ABNORMAL) Vitamin D 25 Hydroxy (06/14/2025 6:31 PM EDT) Only the most recent of2 resultswithin the time period is included. Vitamin D 25 Hydroxy 10.8(L) 20.0 - 80.0 ng/mL 06/14/2025 8:19 PM EDT [facility] Blood Venous blood specimen / Unknown Venipuncture / Unknown 06/14/2025 6:31 PM EDT 06/14/2025 7:05 PM EDT Narrative [facility] - 06/14/2025 8:19 PM EDT Testing performed on [employer], standardized against NIST SRM [id number]. When testing [...] ORDERABLES Nadia l Result Performing Organization Address City/[facility]/ZIP Co de Phone Number [facility] [address] [place] [address] * Hepatitis B Surface Antigen (06/14/2025 6:31 PM EDT) Hepatitis B Surf Antigen Negative Negative 06/14/2025 8:18 PM EDT [facility] Blood Venous blood specimen / Unknown Venipuncture / Unknown 06/14/2025 6:31 PM EDT 06/14/2025 7:05 PM EDT us Luis Angel Bee MD LAB BLOOD ORDERABLES Nadia l Result [facility] [address] [place] [address] * Cytomegalovirus Antibody IgG (06/14/2025 6:31 PM EDT) Pathologist [facility] CMV ANTIBODY IGG <0.20 <=0.59 U/mL 06/16/2025 9:07 PM EDT [facility] ([place]) Blood Venous blood specimen / Unknown Venipuncture / Unknown 06/14/2025 6:31 PM EDT 06/14/2025 7:05 PM EDT Narrative [facility] ([place]) - 06/16/2025 9:07 PM EDT [...] laboratory at the same time. Performed By: [facility] [address] [place] [address] Rock Crusher: Balwinder Wadsworth MD, PhD CLIA Number: [id number] Luis Angel Bee MD LAB BLOOD ORDERABLES Nadia l Result [facility] ([place]) [address] [place] [address] * (ABNORMAL) APTT (06/14/2025 6:31 PM EDT) [facility] aPTT 47(H) 25 - 35 sec LAB COAGULATION METHOD 06/14/2025 7:23 PM EDT [facility] Blood Venous blood specimen / Unknown Venipuncture / Unknown 06/14/2025 6:31 PM EDT 06/14/2025 7:05 PM EDT us Luis Angel Bee MD LAB BLOOD ORDERABLES Nadia l Result [facility] [address] [place] [address] * (ABNORMAL) CBC and Differential (06/14/2025 6:31 PM EDT) WBC Count 7.95 3.70 - 10.30 10*3/uL LAB HEMATOLOGY METHOD 06/14/2025 7:24 PM EDT [facility] RBC Count 2.90(L) 4.60 - 6.10 10*6/uL LAB HEMATOLOGY METHOD 06/14/2025 7:24 PM EDT [facility] HGB 10.1(L) 13.7 - 17.5 g/dL LAB HEMATOLOGY METHOD 06/14/2025 7:24 PM EDT [facility] HCT 29.7(L) 40.0 - 51.0 % LAB HEMATOLOGY METHOD 06/14/2025 7:24 PM EDT [facility] Platelet Count 56(L) 155 - 369 10*3/uL LAB HEMATOLOGY METHOD 06/14/2025 7:24 PM EDT [facility] MCV 102(H) 79 - 98 fL LAB HEMATOLOGY METHOD 06/14/2025 7:24 PM EDT [facility] MCH 34.8(H) 26.0 - 32.0 pg LAB HEMATOLOGY METHOD 06/14/2025 7:24 PM EDT [facility] MCHC 34.0 30.7 - 35.5 g/dL LAB HEMATOLOGY METHOD 06/14/2025 7:24 PM EDT [facility] RDW 16.9(H) 11.5 - 14.5 % LAB HEMATOLOGY METHOD 06/14/2025 7:24 PM EDT [facility] MPV 11.5 8.8 - 12.5 fL LAB HEMATOLOGY METHOD 06/14/2025 7:24 PM EDT [facility] nRBC 0.0 <=0.0 per 100 WBCs LAB HEMATOLOGY METHOD 06/14/2025 7:24 PM EDT [facility] Differential Type Automated LAB HEMATOLOGY METHOD 06/14/2025 7:24 PM EDT [facility] Neutrophils % 56 % LAB HEMATOLOGY METHOD 06/14/2025 7:24 PM EDT [facility] Lymphocytes % 25 % LAB HEMATOLOGY METHOD 06/14/2025 7:24 PM EDT [facility] Monocytes % 13 % LAB HEMATOLOGY METHOD 06/14/2025 7:24 PM EDT [facility] Eosinophils % 4 % LAB HEMATOLOGY METHOD 06/14/2025 7:24 PM EDT [facility] Basophils % 1 % LAB HEMATOLOGY METHOD 06/14/2025 7:24 PM EDT [facility] Immature Granulocytes % 1 % LAB HEMATOLOGY METHOD 06/14/2025 7:24 PM EDT [facility] Neutrophils Absolute 4.56 1.60 - 6.10 10*3/uL LAB HEMATOLOGY METHOD 06/14/2025 7:24 PM EDT [facility] Lymphocytes Absolute 1.97 1.20 - 3.90 10*3/uL LAB HEMATOLOGY METHOD 06/14/2025 7:24 PM EDT [facility] Monocytes Absolute 1.03(H) 0.30 - 0.90 10*3/uL LAB HEMATOLOGY METHOD 06/14/2025 7:24 PM EDT [facility] Eosinophils Absolute 0.31 0.00 - 0.50 10*3/uL LAB HEMATOLOGY METHOD 06/14/2025 7:24 PM EDT [facility] Basophils Absolute 0.04 0.00 - 0.10 10*3/uL LAB HEMATOLOGY METHOD 06/14/2025 7:24 PM EDT [facility] Immature Granulocytes Absolute 0.04 0.00 - 0.06 10*3/uL LAB HEMATOLOGY METHOD 06/14/2025 7:24 PM EDT [facility] Blood Venous blood specimen / Unknown Venipuncture / Unknown 06/14/2025 6:31 PM EDT 06/14/2025 7:06 PM EDT [facility] - 06/14/2025 7:24 PM EDT Therapeutic decision making should be based on absolute values, rather than percentages. us Luis Angel Bee MD LAB BLOOD ORDERABLES Nadia l Result [facility] [address] [place] [address] * Type and screen (06/14/2025 6:31 PM [...] ORDER MARYA Final Result Performing Organization Address [facility] Co de Phone Number BLOOD BANK [address] * CT Angio Cardiac Coronary Arteries (06/13/2025 [...] are based on Ultrasound LI-RADS version 2017. [email or web address] CRITICAL RESULT: No. COMMUNICATION: Per [...] recommendations are based on UltrasoundLI-RADS version 2017. [email or web address] -[email or web address] CRITICAL RESULT: No. COMMUNICATION: Per [...] - 20.1 ug/L 06/13/2025 9:09 AM EDT [facility] Comment:Test performed at [facility], [facility] Laboratory. Blood Venous blood specimen / Unknown Venipuncture / Unknown 06/13/2025 6:50 AM EDT 06/13/2025 7:24 AM EDT Moustapha Katz MD LAB REF LAB BLOOD AND FLUID OR D Final Result [facility] [address] [place] [address] * C-Telopeptide (06/13/2025 6:50 AM EDT) C Telopeptide Beta Cross Linked Serum Result 397 132 - 752 pg/mL 06/14/2025 9:07 PM EDT [facility]) Blood Venous blood specimen / Unknown Venipuncture / Unknown 06/13/2025 6:50 AM EDT 06/13/2025 7:25 AM EDT Narrative [facility] [employer]ILVIADONTA) - 06/14/2025 9:07 PM EDT REFERENCE INTERVAL: C-Telopeptide, Adue-Zozzj-Lbuhkl, Serum Access complete set of age- and/or gender-specific reference intervals for this test in the [facility] Test Directory ([employer]). Performed By: [facility] [address] [place], [place] [id number] Rock Crusher: Balwinder Wadsworth MD, PhD CLIA Number: [id number] Moustapha Katz MD LAB BLOOD ORDERABLES Final Res ult [facility]) [address] [place] [address] * Osteocalcin by ECIA (06/13/2025 6:50 AM EDT) OSTEOCALCIN BY ECIA 8 8 - 36 ng/mL 06/15/2025 12:10 AM EDT [facility]) Blood Venous blood specimen / Unknown Venipuncture / Unknown 06/13/2025 6:50 AM EDT 06/13/2025 7:58 AM EDT Narrative [facility]LAY KHAN) - 06/15/2025 12:10 AM EDT INTERPRETIVE INFORMATION: Osteocalcin by ECIA In patients with renal failure, the osteocalcin result may be directly elevated, due to impaired clearance, and/or indirectly elevated due to renal osteodystrophy. Access complete set of age- and/or gender-specific reference intervals for this test in the [employer] [facility] Test Directory ([employer]). Performed By: [facility] [address] [place] [address] Rock Crusher: Balwinder Wadsworth MD, PhD CLIA Number: [id number] Moustapha Katz MD LAB BLOOD ORDERABLES Final Res ult Performing Organization Address City/[facility]/ZIP Co de Phone Number [facility] [employer]) [address] [place] [id number] * Vitamin D 1,25 Dihydroxy (06/13/2025 6:50 AM EDT) VITAMIN D, 1, 25-DIHYDROXY 43.7 19.9 - 79.3 pg/mL 06/13/2025 12:37 PM EDT [facility] Blood Venous blood specimen / Unknown Venipuncture / Unknown 06/13/2025 6:50 AM EDT 06/13/2025 7:25 AM EDT Moustapha Katz MD LAB BLOOD ORDERABLES Final Res ult [facility] [address] [place] [address] * Phosphorus, Plasma (06/13/2025 6:50 AM EDT) Phosphorus, Plasma 3.5 2.5 - 4.5 mg/dL 06/13/2025 7:56 AM EDT [facility] Blood Venous blood specimen / Unknown Venipuncture / Unknown 06/13/2025 6:50 AM EDT 06/13/2025 7:25 AM EDT us Moustapha Katz MD LAB BLOOD ORDERABLES Final Res ult [facility] [address] [place] [address] * Dexa Bone Density (06/08/2025 8:35 AM EDT) Anatomical Region Laterality Modality L-spine Radiographic Liseth ging Narrative 06/17/2025 10:07 PM EDT [facility] [address], [place] [address] DXA Bone Densitometry Report: [06/08/2025] BMD test performed using the [employer] DXA System (analysis version: 14.10) manufactured by [employer]. REFERRING PROVIDER: Dr. Moustapha Katz MD CLINICAL [...] from Last 3 Months Insurance ANTHEM ANTHEM Advance Directives Documents on File Type Date Recorded Patient Molder Setter Expl anation Power of Healthcare Science Specialist 07/11/2025 POA / Trudy ng Will Care Teams Hand Violin Maker Relationship Specialty Start Date End Date Chris Medel MD [address] [place] [address] PCP - General 03/14/25 Ruma Hernández APRN [address] [address] Referring Physician Gastroenterology 07/30/23
--- OUTSIDE RECORDS SUMMARY | 2025-07-18 08:23 | XMS_ITS | Encounter Summary ---
Author Organization Healthcare Address [address] [place] [address] Care Team Providers Care Manufacturing Cost Estimator Name Role Phone Ruma Hernández CONTRACT GRAPHIC DESIGNER Unavailable [phone] Chris Medel MD Primary Care Provider [phone] Encounter Details Date Type Department Care Team (Late st Contact Info) Description 03/30/2025 Results Follow-Up [facility] [address] [place] [address] Meaghan Le, RN [facility] [id number] [address] [place] [address] Social History Tobacco Use Types [...] Recorded Patient Health Questionnaire-2 Score 0 03/14/2025 [facility] - Occupational Stress Questionnaire Answer [...] in the past 12 m [facility], were you homeless or living [...] Clinical Support [facility] [place] [address] [facility] [address] [place] [address] 09/12/2025 10:00 AM EDT Office Visit [facility] [place] [address] [facility] [facility] [address] [place] [address] Portia Maguire MD [address] [facility] [address] [place] [address] 10/03/2025 12:45 PM EST Office Visit Medical Office Building Urology [address], [address] [place] [address] Suhail Brock MD [address] [facility] [address] [place] [address] 10/18/2025 4:20 PM EST Office Visit [employer] [place] [facility] [address], [address] [place] [address] Moustapha Katz MD [address] [facility] [address] [place] [address] documented as of this encounter [...] documented as of this encounter Care Teams Manufacturing Cost Estimator Relationship Specialty Start Date End Date Chris Medel MD [address] [place] [address] PCP - General 03/14/25 Ruma Hernández APRN [address] [place] [address] Referring Physician Gastroenterology 07/30/23 documented as of this encounter
--- OUTSIDE RECORDS SUMMARY | 2025-07-18 08:23 | XMS_ITS | Encounter Summary ---
Author Organization Healthcare Address [address] [place] [address] Care Team Providers Care Manager Of Selection And Assessment Name Role Phone Ruma Hernández FOOD SAFETY AUDITOR Unavailable [phone] Chris Medel MD Primary Care Provider [phone]- [phone] Encounter Details Date Type Department Care Team (Late st Contact Info) Description 04/03/2025 Results Follow-Up [facility] [address] [place] [address] Meaghan Le, RN [facility] LIVER [id number] [address] [place] [address] Social History Tobacco Use Types [...] Recorded Patient Health Questionnaire-2 Score 0 03/14/2025 [facility] - Occupational Stress Questionnaire Answer [...] Upcoming Encounters Date Type Department Care Team ([facility] st Contact Info) Description 09/12/2025 8:30 AM EDT Clinical Support [facility] [place] [address] [facility] [address] [place] [address] 09/12/2025 10:00 AM EDT Office Visit [facility] [place] [address] [facility] [address] [place] [address] Portia Maguire MD [address] [facility] [address] [place] [address] 10/03/2025 12:45 PM EST Office Visit Medical Office Building Urology [address] [facility], [address] [place] [address] Suhail Brock MD [address] [facility] [address] [place] [address] 10/18/2025 4:20 PM EST Office Visit [facility] [place] [facility] [address] [facility], [address] [place] [address] Moustapha Katz MD [address] [facility] [address] [place] [address] documented as of this encounter [...] as of this encounter Care Teams Manager Of Selection And Assessment Relationship Specialty Start Date End Date Chris Medel MD [address] [place] [address] PCP - General 03/14/25 Ruma Hernández APRN [address] [place] [address] Referring Physician Gastroenterology 07/30/23 documented as of this encounter
--- OUTSIDE RECORDS SUMMARY | 2025-07-18 08:24 | XMS_ITS | Encounter Summary ---
Author Organization Healthcare Address [address] [place] [address] Care Team Providers Care Marble Machine Operator Name Role Phone Urban Brantley DO Primary Care Provider [phone] Ruma Hernández BULB PLANTER Unavailable [phone] Chris Medel MD Primary Care Provider [phone]- [phone] Encounter Details Date Type Department Care Team (Late st Contact Info) Description 05/09/2023 Orders Only External Location [address] [place] [address] Provider, External Social History Tobacco Use Types [...] Clinical Support [facility] [place] [address] [address] 09/12/2025 10:00 AM EDT Office Visit [facility] [place] [address] [address] Portia Maguire MD [address] [place] [address] 10/03/2025 12:45 PM EST Office Visit Medical Office Building Urology [address] [facility], [address] [place] [address] Suhail Brock MD [address] [place] [address] 10/18/2025 4:20 PM EST Office Visit [facility] [place] [facility] [address] [facility], [address] [place] [address] Moustapha Katz MD [address] [facility] [address] [place] [address] documented as of this encounter [...] documented as of this encounter Care Teams Marble Machine Operator Relationship Specialty Start Date End Date Urban Brantley DO [address] [place] [address] PCP - General 07/30/23 03/13/25 Chris Medel MD [address] [place] [address] PCP - General 03/14/25 Ruma Hernández APRN [address] [facility] 202 [place] [address] Referring Physician Gastroenterology 07/30/23 documented as of this encounter
--- OUTSIDE RECORDS SUMMARY | 2025-07-18 08:24 | XMS_ITS | Encounter Summary ---
Author Organization Healthcare Address [address] [place] [address] Care Team Providers Care Geriatric Aide Name Role Phone Ruma Hernández DIRECT SUPPORT STAFF Unavailable [phone] Chris Medel MD Primary Care Provider [phone]- [phone] Encounter Details Date Type Department Care Team (Late st Contact Info) Description 06/21/2025 Results Follow-Up [facility] [address] [place] [address] Meaghan Le, RN [facility] LIVER [id number] [address] [place] [address] Social History Tobacco Use Types [...] you attend [facility] or yazidi services? More than 4 [...] How often do you attend chur or yazidi services? More than 4 times [...] and heating? Not hard at all 06/15/2025 [facility] ional [facility] - Occupational Stress Questionnaire Answer [...] in the past 12 m [facility], were you homeless or living [...] drink first t luisa in the morning (EYE-HVAC INSTALLER) to steady your nerves or to get rid of a hangover? 0 06/14/2025 CAGE Questionnaire Score 0 025 Utilities Answer Date Recorded In the past 12 months has e electric, gas, oil, or water [employer] threatened to shut off services in your [...] going to have a para tomorrow at [facility]. He is only on 40/100 - if they have to drain him do you want to increase his diuretics? documented in this encounter Plan of Treatment Upcoming Encounters Date Type Department Care Team (Late st Contact Info) Description 09/12/2025 8:30 AM EDT Clinical Support [facility] [address] [place] [address] 09/12/2025 10:00 AM EDT Office Visit [facility] [address] [place] [address] Portia Maguire MD [address] [place] [address] 10/03/2025 12:45 PM EST Office Visit Medical Office Building Urology [address], [address] [place] [address] Suhail Brock MD [address] [place] [address] 10/18/2025 4:20 PM EST Office Visit [facility] [address] [facility], [address] [place] [address] Moustapha Katz MD [address] [facility] [address] [place] [address] documented as of this encounter [...] documented as of this encounter Care Teams Geriatric Aide Relationship Specialty Start Date End Date Chris Medel MD [address] [place] [address] PCP - General 03/14/25 Ruma Hernández APRN [address] [place] [address] [address] [place] [address] Referring Physician Gastroenterology 07/30/23 documented as of this encounter
--- OUTSIDE RECORDS SUMMARY | 2025-07-18 08:24 | XMS_ITS | Encounter Summary ---
Author Organization Healthcare Address [address] [place] [address] Care Team Providers Care Material Distributor Name Role Phone Ruma Hernández TRAFFIC CLERK Unavailable [phone] Chris Medel MD Primary Care Provider [phone] Reason for Referral * Imaging (Routine) - Pending Review Specialty Diagnoses / Procedures Referred By Gianna reyes Referred To Contact Radiology Diagnoses Pre-liver transplant, listed Procedures US Guided Abdominal Paracentesis Consult to Interventional Radiology Portia Maguire MD [address] [facility] [address] [place] [address] Phone: tel: fax: Referral ID Status Reason Start Date Expiration Date V isits Requested Visits Authorized [id number] Pending Review 06/20/2025 12/20/2026 1 1 Encounter Details Date Type Department Care Team (Late st Contact Info) Description 06/20/2025 Telephone [facility] [address] [facility] [address] [place] [address] Meaghan Le, RN HOSPITAL LIVER [id number] [address] [place] [address] Social History Tobacco Use Types [...] often do you attend chur ch or orthodox services? More than 4 times [...] and heating? Not hard at all 06/15/2025 [facility] - [...] t luisa in the morning (EYE-PUBLIC HEALTH VETERINARIAN) to steady your nerves or to get [...] and will also fax an order to [facility] in case he can be seen there sooner. Message to provider. documented in this encounter Plan of Treatment Upcoming Encounters Date Type Department Care Team (Late st Contact Info) Description 09/12/2025 8:30 AM EDT Clinical Support [facility] [place] [address] [facility] [address] [place] [address] 09/12/2025 10:00 AM EDT Office Visit [facility] [place] [address] [place] [address] Portia Maguire MD [address] [facility] [address] [place] [address] 10/03/2025 12:45 PM EST Office Visit Medical Office Building Urology [address] [facility], [address] [place] [address] Suhail Brock MD [address] [facility] [address] [place] [address] 10/18/2025 4:20 PM EST Office Visit [facility] [place] [facility] [address] [facility], [address] [place] [address] Moustapha Katz MD [address] [facility] S[address] [place] [address] Scheduled Orders Name Type Priority [...] documented as of this encounter Care Teams Material Distributor Relationship Specialty Start Date End Date Chris Medel MD [address] [place] [address] PCP - General 03/14/25 Ruma Hernández APRN [address] [place] [address] Referring Physician Gastroenterology 07/30/23 documented as of this encounter
--- OUTSIDE RECORDS SUMMARY | 2025-07-18 08:24 | XMS_ITS | Encounter Summary ---
Author Organization Healthcare Address [address] [place] [address] Care Team Providers Care Stove Polisher Name Role Phone Urban Brantley DO Primary Care Provider [phone] Ruma Hernández ACTION INSTALLER Unavailable [phone] Chris Medel MD Primary Care Provider [phone] Encounter Details Date Type Department Care Team (Late st Contact Info) Description 03/22/2023 Orders Only External Location [address] [place] [address] Provider, External Social History Tobacco Use Types [...] Description 09/12/2025 8:30 AM EDT Clinical Support [facility] [place] [address] [address] 09/12/2025 10:00 AM EDT Office Visit [facility] [place] [address] [address] Portia Maguire MD [address] [place] [address] 10/03/2025 12:45 PM EST Office Visit Medical Office Building Urology [address] [facility], [address] [place] [address] Suhail Brock MD [address] [address] [place] [address] 10/18/2025 4:20 PM EST Office Visit [facility] [employer] [place] [facility]eral Metabolism [address] [facility], [address] [place] [address] Moustapha Katz MD [address] [facility] [address] [place] [address] documented as of this encounter [...] documented as of this encounter Care Teams Stove Polisher Relationship Specialty Start Date End Date Urban Brantley DO [address] [place] [address] PCP - General 07/30/23 03/13/25 Chris Medel MD [address] [place] [address] PCP - General 03/14/25 Ruma Hernández APRN [address] [facility] 202 [place], [place] [address] Referring Physician Gastroenterology 07/30/23 documented as of this encounter
--- OUTSIDE RECORDS SUMMARY | 2025-07-18 08:24 | XMS_ITS ---
Author Organization [facility] Address [address] 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 Care Team Name Role Phone Fax Email Meaghan Le RN Liver Coordinator [phone] N/A N/A Urban Brantley DO Primary Care Provider [phone] N/A Bird Kennedy MD Surgeon [phone] N/A CALEB GaticaW Machine Gunner [phone] N/A N/A Ruma Hernández APRN Referring Physician [phone] N/A Events Pre-Transplant Referred: 07/30/2023 Committee: 06/19/2024 Center waitlisted: 07/05/2024 Appointments (06/17/2025 - 08/17/2025) When With Visit Type Description 07/11/2025 Transplant - [facility] - Office Visit 07/11/2025 Transplant - [facility] Pre-liver transplant, patient on transplant list 07/11/2025 Transplant - [facility]lee Negro Office Visit - Transplant Cirrhosis of liver with ascites, unspecified hepatic cirrhosis type (CMS/HCC) (Primary Dx); Other ascites; Pre-liver transplant, listed; Alcoholic cirrhosis, unspecified whether ascites present (CMS/HCC); Hemochromatosis associated with compound heterozygous mutation in HFE gene; Alcohol use disorder, moderate, in sustained remission
--- OUTSIDE RECORDS SUMMARY | 2025-07-18 08:24 | XMS_ITS | Encounter Summary ---
Author Organization Healthcare Address [address] [place] [address] Care Team Providers Care Grinder Outside Diameter Name Role Phone Urban Brantley DO Primary Care Provider [phone] Ruma Hernández MANAGER OFFICE SERVICES Unavailable [phone] Chris Medel MD Primary Care Provider [phone] Encounter Details Date Type Department Care Team (Late st Contact Info) Description 03/22/2023 Orders Only External Location [address] [place] [address] Provider, External Social History Tobacco Use Types [...] EDT Clinical Support [facility] [place] [address] [address] 09/12/2025 10:00 AM EDT Office Visit [facility] [place] [address] [address] Portia Maguire MD [address] [place] [address] 10/03/2025 12:45 PM EST Office Visit Medical Office Building Urology [address] [facility], [address] [place] [address] Suhail Brock MD [address] [place] [address] 10/18/2025 4:20 PM EST Office Visit [facility] [employer] [place] [facility]abolism [address] [facility], [address] [place] [address] Moustapha Katz MD [address] [facility] [address] [place] [address] documented as of this encounter [...] documented as of this encounter Care Teams Grinder Outside Diameter Relationship Specialty Start Date End Date Urban Brantley DO [address] [place] [address] PCP - General 07/30/23 03/13/25 Chris Medel MD [address] [place] [address] PCP - General 03/14/25 Ruma Hernández APRN [address] [facility] 202 [place], [place] [address] Referring Physician Gastroenterology 07/30/23 documented as of this encounter
--- OUTSIDE RECORDS SUMMARY | 2025-07-18 08:25 | XMS_ITS | Encounter Summary ---
Author Organization Healthcare Address [address] [place] [address] Care Team Providers Care Rehabilitation Manager Name Role Phone Ruma Hernández ACOUSTICAL CARPENTER Unavailable [phone] Chris Medel MD Primary Care Provider [phone] Encounter Details Date Type Department Care Team [...] Questionnaire-2 Score 0 03/14/2025 [facility] - Occupational Stress Questionnaire Answer [...] Description 09/12/2025 8:30 AM EDT Clinical Support [facility] [address] [place] [address] 09/12/2025 10:00 AM EDT Office Visit [facility] [place] [address] [place] [address] Portia Maguire MD [address] [place] [address] 10/03/2025 12:45 PM EST Office Visit Medical Office Building Urology [address] [facility], [address] [place] [address] Suhail Brock MD [address] [facility] [address] [place] [address] 10/18/2025 4:20 PM EST Office Visit [facility] [address] [facility], [address] [place] [address] Moustapha Katz MD [address] [facility] [address] [place] [address] documented as of this encounter [...] documented as of this encounter Care Teams Rehabilitation Manager Relationship Specialty Start Date End Date Chris Medel MD [address] [place] [address] PCP - General 03/14/25 Ruma Hernández APRN [address] [facility] [address] [place] [address] Referring Physician Gastroenterology 07/30/23 documented as of this encounter
--- OUTSIDE RECORDS SUMMARY | 2025-07-18 08:25 | XMS_ITS | Encounter Summary ---
Author Organization Healthcare Address [address] [place] [address] Care Team Providers Care Student Success Advisor Name Role Phone Ruma Hernández THERMOSCREW OPERATOR Unavailable [phone] Chris Medel MD Primary Care Provider [phone] Encounter Details Date Type Department Care Team [...] Patient Health Questionnaire-2 Score 0 06/08/2025 [facility] - Occupational Stress Questionnaire Answer Date [...] any time in the past 12 m [facility], were you homeless or living in a intermediate (including now)? No 02/19/2025 Utilities Answer Date [...] Description 09/12/2025 8:30 AM EDT Clinical Support [facility] [address] [facility] [address] [place] [address] 09/12/2025 10:00 AM EDT Office Visit [facility] [address] [facility] [address] [place] [address] Portia Maguire MD [address] [facility] [address] [place] [address] 10/03/2025 12:45 PM EST Office Visit Medical Office Building Urology [address] [facility], [address] [place] [address] Suhail Brock MD [address] [facility] [address] [place] [address] 10/18/2025 4:20 PM EST Office Visit [facility] [address] [facility], [address] [place] [address] Moustapha Katz MD [address] [facility] [address] [place] [address] documented as of this encounter [...] documented as of this encounter Care Teams Student Success Advisor Relationship Specialty Start Date End Date Chris Medel MD [address] [place] [address] PCP - General 03/14/25 Ruma Hernández APRN [address] [address] Referring Physician Gastroenterology 07/30/23 documented as of this encounter
--- OUTSIDE RECORDS SUMMARY | 2025-07-18 08:25 | XMS_ITS | Encounter Summary ---
Author Organization Healthcare Address [address] [place] [address] Care Team Providers Care Cornice Upholsterer Name Role Phone Ruma Hernández MANAGER LOSS PREVENTION Unavailable [phone] Chris Medel MD Primary Care Provider [phone] Encounter Details Date Type Department Care Team (Late st Contact Info) Description 06/05/2025 Results Follow-Up [facility] [address] [place] [address] Meaghan Le, RN [facility] LIVER [id number] [address] [place] [address] Social History Tobacco Use Types [...] Recorded Patient Health Questionnaire-2 Score 0 06/08/2025 [facility] [...] Description 09/12/2025 8:30 AM EDT Clinical Support [facility] [address] [place] [address] 09/12/2025 10:00 AM EDT Office Visit [facility] [address] [place] [address] Portia Maguire MD [address] [place] [address] 10/03/2025 12:45 PM EST Office Visit Medical Office Building Urology [address] [facility], [address] [place] [address] Suhail Brock MD [address] [place] [address] 10/18/2025 4:20 PM EST Office Visit [facility] [place] [facility]abolism [address] [facility], [address] [place] [address] Moustapha Katz MD [address] [facility] [address] [place] [address] documented as of this encounter [...] documented as of this encounter Care Teams Cornice Upholsterer Relationship Specialty Start Date End Date Chris Medel MD [address] [place] [address] PCP - General 03/14/25 Ruma Hernández APRN [address] [place] [address] Referring Physician Gastroenterology 07/30/23 documented as of this encounter
--- OUTSIDE RECORDS SUMMARY | 2025-07-18 08:25 | XMS_ITS | Encounter Summary ---
Author Organization Healthcare Address [address] [place] [address] Care Team Providers Care Travel Information Center Supervisor Name Role Phone Ruma Hernández CAN CUTTER Unavailable [phone] Chris Medel MD Primary Care Provider [phone] Encounter Details Date Type Department Care Team (Late st Contact Info) Description 06/07/2025 Telephone [facility] [address] [facility], [address] [place] [address] Mary Chatman, [facility] [...] Recorded Patient Health Questionnaire-2 Score 0 06/08/2025 [facility] [...] time in the past 12 m [facility], were you homeless or living in [...] Faxed record request for lab results to [facility] Records F documented in this encounter Plan of Treatment Upcoming Encounters Date Type Department Care Team (Late st Contact Info) Description 09/12/2025 8:30 AM EDT Clinical Support [facility] Trans[facility] [place] [address] [facility] [address] [place] [address] 09/12/2025 10:00 AM EDT Office Visit [facility] [place] [address] [facility] [address] [place] [address] Portia Maguire MD [address] [facility] [address] [place] [address] 10/03/2025 12:45 PM EST Office Visit Medical Office Building Urology [address] [facility], [address] [place] [address] Suhail Brock MD [address] [facility] [address] [place] [address] 10/18/2025 4:20 PM EST Office Visit [facility] [employer] [place] [facility] [address] [facility], [address] [place] [address] Moustapha Katz MD [address] [facility] [address] [place] [address] documented as of this encounter [...] documented as of this encounter Care Teams Travel Information Center Supervisor Relationship Specialty Start Date End Date Chris Medel MD [address] [place] [address] PCP - General 03/14/25 Ruma Hernández APRN [address] [place] [address] Referring Physician Gastroenterology 07/30/23 documented as of this encounter
--- OUTSIDE RECORDS SUMMARY | 2025-07-18 08:25 | XMS_ITS | Encounter Summary ---
Author Organization Healthcare Address [address] [place] [address] Care Team Providers Care Fiberglass Luggage Molder Name Role Phone Ruma Hernández STRIKE PLANNING APPLICATIONS Unavailable [phone] Chris Medel MD Primary Care Provider [phone] Encounter Details Date Type Department Care Team (Late st Contact Info) Description 06/06/2025 Telephone [facility] Radiology [address] [place] [id number] Mell Masterson, RN CH-DIAGNOSTIC RADIOLOGY Social History [...] do you attend [facility] or advent services? More than 4 times [...] week 06/15/2025 How often do you attend [facility] or advent services? More than 4 times [...] and heating? Not hard at all 06/15/2025 [facility] [place] of Occupat ional Health - Occupational Stress [...] drink first t luisa in the morning (EYE-ACCOUNT MANAGER TRAINEE) to steady your nerves or to get rid of a hangover? 0 06/14/2025 CAGE Questionnaire Score 0 025 Utilities Answer Date Recorded In the past 12 months has th e [employer], gas, oil, or water company threatened to [...] things Not at all 06/08/2025 9:04 AM Mellissa Ng Feeling down, depressed, or hopeless Not at all 06/08/2025 9:04 AM NURYST Mellissa Martines Patient Health Questionnaire -2 Score 0 06/08/2025 9:04 AM NURYST Mellissa Martines * Calculated C-SSRS Risk Score [...] Behavior (Lifetime) No 9:23 PM EDT Chapito aJrrett documented as of this encounter Plan of Treatment Upcoming Encounters Date Type Department Care Team (Late st Contact Info) Description 09/12/2025 8:30 AM EDT Clinical Support [facility] [place] [address] [facility] [address] [place] [address] 09/12/2025 10:00 AM EDT Office Visit [facility] [place] [address] [facility] [address] [place] [address] Portia Maguire MD [address] [facility] [address] [place] [address] 10/03/2025 12:45 PM EST Office Visit Medical Office Building Urology [address] [facility], [address] [place] [address] Suhail Brock MD [address] [facility] [address] [place] [address] 10/18/2025 4:20 PM EST Office Visit Professional [employer] [place] [facility] [address] [facility], [address] [place] [address] Moustapha Katz MD [address] [facility] [address] [place] [address] documented as of this encounter [...] documented as of this encounter Care Teams Fiberglass Luggage Molder Relationship Specialty Start Date End Date Chris Medel MD [address] [place] [address] PCP - General 03/14/25 Ruma Hernández APRN [address] [address] Referring Physician Gastroenterology 07/30/23 documented as of this encounter
--- OUTSIDE RECORDS SUMMARY | 2025-07-18 08:26 | XMS_ITS | Encounter Summary ---
Author Organization Healthcare Address [address] [place] [address] Care Team Providers Care Director Of Industrial Relations Name Role Phone Ruma Hernández MAINTENANCE DISPATCHER Unavailable [phone] Chris Medel MD Primary Care Provider [phone] Encounter Details Date Type Department Care Team (Late st Contact Info) Description 06/29/2025 Results Follow-Up [facility] [address] [place] [address] Meaghan Le, RN [facility] LIVER [id number] [address] [place] [address] Social History Tobacco Use [...] you attend [facility] or mormon services? More than 4 times [...] How often do you attend chur or mormon services? More than 4 times [...] and heating? Not hard at all 06/15/2025 [facility] of Occupat ional [facility] - Occupational Stress Questionnaire Answer Date [...] any time in the past 12 m [facility], were you homeless or living [...] drink first t luisa in the morning (EYE-BLUEPRINTING MACHINE OPERATOR) to steady your nerves or to get rid of a hangover? 0 06/14/2025 CAGE Questionnaire Score 0 025 Utilities Answer Date Recorded In the past 12 months has th [employer], gas, oil, or water [employer] threatened to shut off services in your [...] Description 09/12/2025 8:30 AM EDT Clinical Support [facility] Transplant [place] [address] [facility] [address] [place] [address] 09/12/2025 10:00 AM EDT Office Visit [facility] [place] [address] [place] [address] Portia Maguire MD [address] [facility] [address] [place] [address] 10/03/2025 12:45 PM EST Office Visit Medical Office Building Urology [address] [facility], [address] [place] [address] Suhail Brock MD [address] [facility] [address] [place] [address] 10/18/2025 4:20 PM EST Office Visit Professional [employer] [place] [facility] [address] [facility], [address] [place] [address] Moustapha Katz MD [address] [facility] [address] [place] [address] documented as of this encounter [...] as of this encounter Care Teams Director Of Industrial Relations Relationship Specialty Start Date End Date Chris Medel MD [address] [place] [address] PCP - General 03/14/25 Ruma Hernández APRN [address] [place] [address] Referring Physician Gastroenterology 07/30/23 documented as of this encounter
--- OUTSIDE RECORDS SUMMARY | 2025-07-18 08:26 | XMS_ITS | Encounter Summary ---
Author Organization Healthcare Address [address] [place] [address] Care Team Providers Care Glove Wrapper Name Role Phone Ruma Hernández METER SHOP SUPERVISOR Unavailable [phone] Chris Medel MD Primary Care Provider [phone] Encounter Details Date Type Department Care Team (Late st Contact Info) Description 05/22/2025 Telephone [facility] [address] [place] [address] Meaghan Le, RN [facility] LIVER [id number] [address] [place] [address] Social History Tobacco Use Types [...] How often do you attend chur or baptist services? More than 4 times per year 02/19/2025 Do you belong to any clubs o r organizations such as yazdanism groups, unions, fraternal or athletic groups, or [...] Patient Health Questionnaire-2 Score 0 03/14/2025 [facility] - Occupational Stress Questionnaire Answer Date [...] time in the past 12 m [facility], were you homeless or [...] EDT Clinical Support [facility] [place] [address] [facility] [address] [place] [address] 09/12/2025 10:00 AM EDT Office Visit [facility] [place] [address] [facility] [address] [place] [address] Portia Maguire MD [address] [facility] [address] [place] [address] 10/03/2025 12:45 PM EST Office Visit Medical Office Building Urology [address] [facility], [address] [place] [address] Suhail Brock MD [address] [facility] [address] [place] [address] 10/18/2025 4:20 PM EST Office Visit [facility] [address] [facility], [address] [place] [address] Moustapha Katz MD [address] [facility] [address] [place] [address] documented as of this encounter [...] documented as of this encounter Care Teams Glove Wrapper Relationship Specialty Start Date End Date Chris Medel MD [address] [place] [address] PCP - General 03/14/25 Ruma Hernández APRN [address] [facility] [address] [place] [address] Referring Physician Gastroenterology 07/30/23 documented as of this encounter
--- OUTSIDE RECORDS SUMMARY | 2025-07-18 08:27 | XMS_ITS | Encounter Summary ---
Author Organization Healthcare Address [address] [place] [address] Care Team Providers Care Telecommunications Field Technician Name Role Phone Urban Brantley DO Primary Care Provider [phone] Ruma Hernández STERILIZATION TECHNICIAN Unavailable [phone] Chris Medel MD Primary Care Provider [phone] Encounter Details Date Type Department Care Team (Late st Contact Info) Description 12/30/2023 Orders Only External Location [address] [place] [address] Urban Stafford MD [address] [facility] [address] [place] [address] Social History Tobacco Use Types Packs/Day [...] Description 09/12/2025 8:30 AM EDT Clinical Support [facility] Transplant [place] [address] [place] [address] 09/12/2025 10:00 AM EDT Office Visit [facility] [place] [address] [place] [address] Portia Maguire MD [address] [place] [address] 10/03/2025 12:45 PM EST Office Visit Medical Office Building Urology [address] [facility], [address] [place] [address] Suhail Brock MD [address] [place] [address] 10/18/2025 4:20 PM EST Office Visit Professional [employer] [place] [facility] [address] [facility], [address] [place] [address] Moustapha Katz MD [address] [place] [address] documented as of this encounter [...] documented as of this encounter Care Teams Telecommunications Field Technician Relationship Specialty Start Date End Date Urban Brantley DO [address] [place] [address] PCP - General 07/30/23 03/13/25 Chris Medel MD [address] [place] [address] PCP - General 03/14/25 Ruma Hernández APRN [address] [place] [address] Referring Physician Gastroenterology 07/30/23 documented as of this encounter
[2025-07-18 09:03] LABS: Hematocrit 32.9 % (42.0-52.0); Hemoglobin 10.9 g/dL (14.1-18.0); Mean Corpuscular HGB Conc 33.1 g/dL (31.8-35.4); Mean Corpuscular Hemoglobin 34.1 pg (27.0-31.2); Mean Corpuscular Volume 102.8 fl (80-94); Nucleated Red Blood Cells % 0 %; Platelet Count 80 K/mm3 (142-424); Red Blood Count 3.20 M/mm3 (4.60-6.20); Red Cell Distribution Width-SD 61.1 fL; White Blood Count 6.4 K/mm3 (4.8-10.8)
[2025-07-18 09:40] LABS: Activated Partial Thrombo Time 37.9 seconds (22.8-30.6); INR 1.58 (0.9-1.1); Prothrombin Time 17.0 seconds (10.1-12.5)
[2025-07-18 09:41] LABS: Alanine Aminotransferase 42 U/L (12-78); Albumin Level 2.2 g/dl (3.5-5.0); Albumin/Globulin Ratio 0.5 (1.1-1.8); Alkaline Phosphatase 174 U/L (38-126); Anion Gap 5.1 mEq/L (5-15); Aspartate Amino Transferase 58 U/L (17-59); Bilirubin,Total 3.5 mg/dl (0.2-1.3); Blood Urea Nitrogen 12 mg/dl (9-20); Calcium 7.7 mg/dl (8.4-10.2); Carbon Dioxide 28 mmol/L (22.0-30.0); Chloride 109 mmol/L (98-107); Creatinine,Serum 0.80 mg/dl (0.66-1.25); Estimated Glomerular Filt Rate 97 ml/min (>60); GFR (African American) 118 ML/MIN (>60); Globulin 4.4 g/dL (1.3-3.2); Glucose 80 mg/dl (74-100); Potassium 4.1 mmoL/L (3.5-5.1); Sodium 138 mmol/L (136-145); Total Protein,Serum 6.6 g/dl (6.3-8.2)
== END 2025-07-18 23:59 | disposition home or self-care (01) ==
PROVIDERS: Physician Assistant; PCP Family Medicine; Visit Provider Internal Medicine
DX: K72.90 Hepatic failure, unspecified without coma (principal)
CPT/HCPCS: 36415; 80053; 85027; 85610; 85730

== ENCOUNTER 2025-08-01 07:10 | Outpatient (CLI) | payer BC, SELFPAY ==
--- OUTSIDE RECORDS SUMMARY | 2023-08-27 08:34 | XMS_ITS | Encounter Summary ---
[facility] Address [address] [place] [address] Care Team Providers Care Experimental Preflight Mechanic Name Role Phone Karon Urban Jc DO Primary Care Provider +1 -[phone] Encounter Details Date Type Department Care Team (Late st Contact Info) Description 08/27/2023 8:34 AM EDT Hospital Encounter [facility] PULMONARY & CRITICAL CARE MEDICINE [address] [place] [phone] Social History Tobacco Use Types Packs/Day [...] on filedocumented in this encounter Care Teams Experimental Preflight Mechanic Relationship Specialty Start Date End Date Urban Brantley DO [address] [place] [address] [place] [address] PCP - General Internal Medicine 03/22/23 documented as of this encounter
--- OUTSIDE RECORDS SUMMARY | 2025-06-08 08:35 | XMS_ITS | Encounter Summary ---
Author Organization Healthcare Address [address] [place] [address] Care Team Providers Care Claims Customer Service Representative Name Role Phone Ruma Hernández DANCE ENTERTAINER Unavailable [phone] Chris Medel MD Primary Care Provider [phone] Encounter Details Date Type Department Care Team (Latest Contact Info) Description 06/08/2025 8:35 AM EDT - 06/08/2025 11:59 PM EDT Hospital En[facility] [address], [address] [place] [address] Other osteoporosis without current pathological fracture Discharge Disposition: Home or Self Care Social History Tobacco Use Types Packs/Day Years Used Date Smoking Tobacco: Never Passive Smoke Exposure: Past Smokeless Tobacco: Former Chew Quit: 11/15/2019 Comments:not sure of exact d ate quit chewing but several years ago Alcohol Use Standard Drinks/Week Comments Not Currently 0 (1 standard drink = 0.6 oz pur e alcohol) quit February 2023 Social Connection and Isolation Panel Answer Date Recorded In a typical week, how many times do you talk on the phone with family, friends, or neighbors? More than three times a week 02/19/2025 How often do you get togethe r with friends or relatives? More than three times a week 02/19/2025 How often do you attend [facility] or christianity services? More than 4 times per year 02/19/2025 Do you belong to any clubs o r organizations such as restoration groups, unions, [employer] or athletic groups, or school groups? Yes 02/19/2025 How often do you attend meet ings of the clubs or organizations you belong to? More than 4 times per year 02/19/2025 Are you , , di vorced, , never , or living with a partner? 02/19/2025 PHQ-2 Answer Date Recorded Patient Health Questionnaire-2 Score 0 06/08/2025 PHQ-9 Answer Date Recorded Patient Health Questionnaire-9 Score 0 10/04/2024 Humiliation, Afraid, Rape, and Kick questionnair e Answer Date Recorded Within the last year, have y ou been afraid of your partner or ex-partner? No 06/15/2025 Within the last year, have y ou been humiliated or emotionally abused in other ways by your partner or ex-partner? No Within the last year, have y ou been kicked, hit, slapped, or otherwise physically hurt by your partner or ex-partner? No 06/15/2025 Within the last year, have y ou been raped or forced to have any kind of sexual activity by your partner or ex-partner? No 06/15/2025 Social Connection and Isolation Panel Answer Date Recorded In a typical week, how many times do you talk on the phone with family, friends, or neighbors? More than three times a week 06/15/2025 How often do you get togethe r with friends or relatives? More than three times a week 06/15/2025 How often do you attend chur or christianity services? More than 4 times per year 06/15/2025 Do you belong to any clubs o r organizations such as restoration groups, unions, fraternal or athletic groups, or school groups? Yes 06/15/2025 Attends Club or Organization Meetings Not on alcides e 06/15/2025 Are you , , di vorced, , never , or living with a partner? 06/15/2025 AUDIT-C Answer Date Recorded Q1: How often do you have a drink containing alcohol? Never 06/15/2025 Q2: How many drinks containi ng alcohol do you have on a typical day when you are drinking? Patient does not drink Q3: How often do you have si x or more drinks on one occasion? Never 06/15/2025 Overall Financial Resource Strain (CARDIA) Answe r Date Recorded How hard is it for you to pa y for the very basics like food, housing, medical care, and heating? Not hard at all 06/15/2025 [facility] of Occupat ional [facility] - Occupational Stress Questionnaire Answer Date Recorded Do you feel stress - tense, restless, nervous, or anxious, or unable to sleep at night because your mind is troubled all the time - these days? Only a little 06/15/2025 Exercise Vital Sign Answer Date Recorde d On average, how many days pe r week do you engage in moderate to strenuous exercise (like a brisk walk)? 0 days 06/15/2025 On average, how many minutes do you engage in exercise at this level? 0 min 06/15/2025 Hunger Vital Sign Answer Date Recorded Within the past 12 months, y ou worried that your food would run out before you got the money to buy more. Never true 06/15/20 25 Within the past 12 months, t he food you bought just didn't last and you didn't have money to get more. Never true 06/15/2025 PRAPARE - Transportation Answer Date Re corded In the past 12 months, has l ack of transportation kept you from medical appointments or from getting medications? No 11/2024 In the past 12 months, has l ack of transportation kept you from meetings, work, or from getting things needed for daily living? No 06/15/2025 Housing Stability Vital Sign Answer Fransico e Recorded In the last 12 months, was t here a time when you were not able to pay the mortgage or rent on time? No 06/15/2025 In the past 12 months, how m any times have you moved where you were living? 0 06/15/2025 At any time in the past 12 m [facility], were you homeless or living in a chcf (including now)? No 06/15/2025 CAGE ASSESSMENT Answer Date Recorded Cage unable to access Not on file 06/14/2025 Cage max number of drinks Not on file 2024 Cage Beverages a week Not on file 06/14/2025 Have you ever felt you should CUT down on your d rinking? 0 06/14/2025 Have you been ANNOYED by people criticizing your drinking? 0 06/14/2025 Have you felt GUILTY about your drinking? 0 06/14/2025 Have you had a drink first t luisa in the morning (EYE-STORE CLERK) to steady your nerves or to get rid of a hangover? 0 06/14/2025 CAGE Questionnaire Score 0 025 Utilities Answer Date Recorded In the past 12 months has [employer], gas, oil, or water [employer] threatened to shut off services in your home? Yes 06/15/2025 PHQ-2A Answer Date Recorded Patient Health Questionnaire-2 Score 0 10/05/2023 Sex and Gender Information Value Date Recorded Sex Assigned at Male 06/14/2025 4:18 PM EDT Legal Sex Male 8:57 PM EDT Gender Identity Male 06/14/2025 4:18 PM EDT Sexual Orientation Straight 06/14/2025 4: 18 PM EDT documented as of this encounter Functional Status * AUDIT-C Score Answer Date of Assessment Author 0 06/15/2025 9:39 AM EDT Fili Gutiérrez RN * Question Answer Date of Assessment Author Q1: How often do you have a drink containing alcohol? Never 06/15/2025 9:39 AM EDT Lisa Gutiérrez R N Q2: How many drinks containing alcohol do you have on a typical day when you are drinking? Patient does not drink 06/15/2025 9:39 AM EDT Lisa Gutiérrez RN Q3: How often do you have six or more drinks on one occasion? Never 06/15/2025 9:39 AM EDT Lisa Gutiérrez R N * Over the past 2 weeks, how often have you been bothered by any of the following problems? Question Answer Date of Assessment Author Little interest or pleasure in doing things Not at all 06/08/2025 9:04 AM NURYST Mellissa Martines Feeling down, depressed, or hopeless Not at all 06/08/2025 9:04 AM EDT Mellissa Martines Patient Health Questionnaire -2 Score 0 06/08/2025 9:04 AM EDT Mellissa Martines * Calculated C-SSRS Risk Score (Lifetime/Recent) Answer Date of Assessment Author No Risk Indicated 06/14/2025 9:23 PM EDT Chapito Jarrett * Question Answer Date of Assessment Author 1. Wish to be (Past 1 Month) No 025 9:23 PM EDT Chapito Jarrett 2. Non-Specific Active Suici alisson Thoughts (Past 1 Month) No 06/14/2025 9:23 PM EDT Chapito Jarrett 6. Suicidal Behavior (Lifetime) No 5 9:23 PM EDT Chapito Jarrett documented as of this encounter Medications at [...] 09/13/2024 5 ergocalciferol (Vitamin D-2) 1.25 MG (19150 UT) capsule Take 1 capsule by mouth [...] mouth daily. 180 capsule 3 03/14/2025 6 Xifaxan 550 MG tablet Take 1 tablet by mouth 2 times a day. 01/15/2025 calcitriol (Rocaltrol) 0.25 MCG capsule Take 1 capsule by mouth daily. Take 1 capsule daily only on 5 days in the week ( Wednesday to Wednesday only) 24 capsule 5 06/10/2025 5 spironolactone (Aldactone) 50 MG tabletIndications :Bilateral leg edema,Cirrhosis of liver with ascites, unspecified hepatic cirrhosis type (CMS/HCC),Other ascites Take 2 tablets by mouth daily. 180 each 3 03/14/2025 documented as of this encounter Plan of Treatment Upcoming Encounters Date Type Department Care Team (Late st Contact Info) Description 09/12/2025 8:30 AM EDT Clinical Support [facility] [place] [address] [facility] [address] [place] [address] 09/12/2025 10:00 AM EDT Office Visit [facility] [place] [address] [facility] [address] [place] [address] Portia Maguire MD [address] [facility] [address] [place] [address] 10/03/2025 12:45 PM EST Office Visit Medical Office Building Urology [address], [address] [place] [address] Suhail Brock MD [address] [facility] [address] [place] [address] 10/18/2025 4:20 PM EST Office Visit [facility] [address], [address] [place] [address] Moustapha Katz MD [address] [place] [address] documented as of this encounter Procedures Procedure Name Priority Date/Time Associated Diagnosis Comments DEXA BONE DENSITY Routine 06/08/2025 8:3 5 AM EDT Other osteoporosis without current pathological fracture documented in this encounter Results * Dexa Bone Density (06/08/2025 8:35 AM EDT) Anatomical Region Laterality Modality L-spine Radiographic Liseth ging Narrative 06/17/2025 10:07 PM EDT [facility] [address] [address], [place] [address] DXA Bone Densitometry Report: [06/08/2025] BMD test performed using the [employer] DXA System (analysis version: 14.10) manufactured by [employer]. REFERRING PROVIDER: Dr. Moustapha Katz MD CLINICAL INFORMATION: osteoporosis PATIENT NAME: David Pop PATIENT AGE: 65 y.o. LEGAL SEX: male RADIOGRAPHIC VIEWS: Sites scanned: AP Spine, HIP Right , HIP Left, and TBS COMPARISON STUDY: DXA Axial Prior studies are not available for comparison and TBS Prior studies are not available for comparison FINDINGS: Based on T-score (males over 50 years of age) the diagnosis is Osteopenia The lowest T- score is -1.5 in the RFN FRAX (10-year probability of fracture) - Major Osteoporotic: 5.9 %; Hip: 0.8 % The presence of arthritic or degenerative joint changes in the spine could artefactually increase measured BMD. TBS: The TBS L1-L4 of 1.262 indicates partially degraded microarchitecture FRAX (10-year probability of fracture) - corrected for TBS: Major Osteoporotic: 6.8 %; Hip: 0.9 % TREATMENT RECOMMENDATIONS: Measured bone density does not cross threshold for treatment Work up for secondary osteoporosis and metabolic bone disease could be considered based on clinical indications. Suggest general measures to optimize calcium and vitamin D status, fall prevention measures and reduce fracture risk. Consider repeating this study in 1 year(s) or as clinically indicated to assess bone density change or response to treatment (should be performed on the same DXA scanner to allow for direct comparison and calculation of change in BMD). us Moustapha Katz MD IMG DXA PROCEDURES Final Resul t documented in this encounter Visit Diagnoses Diagnosis Other osteoporosis without current pathological fracture documented in this encounter Additional Health Concerns Assessment Noted Time PHQ-9 Depression Total Score: 0 10/04/20 24 12:32 PM EST A fall risk assessment has been complete d for the patient 06/08/2025 9:04 AM EDT A Body Mass Index follow-up plan has been documented for the patient 03/14/2025 10:10 AM EDT documented as of this encounter Care Teams Claims Customer Service Representative Relationship Specialty Start Date End Date Chris Medel MD [address] [place] [address] PCP - General 03/14/25 Ruma Hernández APRN [address] [facility] [address] [place] [address] Referring Physician Gastroenterology 07/30/23 documented as of this encounter
--- OUTSIDE RECORDS SUMMARY | 2025-06-08 12:20 | XMS_ITS | Encounter Summary ---
Author Organization Healthcare Address [address] [place] [address] Care Team Providers Care Collar Baster Jumpbasting Name Role Phone Ruma Hernández FIFTH GRADE TEACHER Unavailable [phone] Chris Medel MD Primary Care Provider [phone] Reason for Referral * Consultation (Routine) - Authorized Specialty Diagnoses / Procedures Referred By Gianna reyes Referred To Contact Diagnoses Age-related osteoporosis without current pathological fracture Moustapha Katz MD [address] [place] [address] [place] [address] Phone: tel: fax: Referral ID Status Reason Start Date Expiration Date V isits Requested Visits Authorized [id number] Authorized 06/08/2025 12/08/2026 1 1 Reason for Visit * Reason Comments Follow-up Encounter Details Date Type Department Care Team ([facility] st Contact Info) Description 06/08/2025 12:20 PM EDT Office Visit [facility] [place] [facility] [address] [place] [address] Moustapha Katz MD [address] [place] [address] Age-related osteoporosis without current pathological fracture (Primary Dx) Social History Tobacco Use Types Packs/Day Years Used Date Smoking Tobacco: Never Passive Smoke Exposure: Past Smokeless Tobacco: Former Chew Quit: 11/15/2019 Tobacco [...] week 02/19/2025 How often do you attend [facility] or rastafarian services? More than 4 times per year 02/19/2025 Do you belong to any clubs o r organizations such as scientologist groups, unions, fraternal or athletic groups, or [...] Recorded Patient Health Questionnaire-2 Score 0 06/08/2025 [facility] - Occupational Stress Questionnaire Answer Date [...] any time in the past 12 m onths, were you homeless or living in a [...] PM EDT documented as of this encounter Last Filed Vital Signs Vital Sign Reading Time Taken Comments Blood Pressure 121/77 06/08/2025 8:59 AM EDT Pulse 55 06/08/2025 8:59 AM EDT Temperature 36.4 C (97.6 F) 06/08/2025 8:59 AM EDT Respiratory Rate 16 06/08/2025 8:59 AM EDT Oxygen Saturation 98% 06/08/2025 8:5 9 AM EDT Inhaled Oxygen Concentration - - Weight 105 kg (231 lb 4.2 oz) 06/08/2025 8:59 AM EDT Height 167.8 cm (5' 6.06 ) 06/08/2025 8 :59 AM EDT pt declined removing shoes Body Mass Index 37.26 06/08/2025 8:59 AM EDT documented in this encounter Functional [...] Mellissa Martines documented as of this encounter Miscellaneous Notes * Progress Notes - Moustapha Katz MD - 06/08/2025 12:20 PM EDT Images from the original note were not included. Tanner Pop is a 65 y.o. male who is referred by Chris Wellington MD for evaluationand management of osteoporosis. He is accompanied by his . 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 Known to have osteopenia since 04/11/2024 on [...] were discussedwith them today. 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; No thyroid/parathyroid/kidney; No RA/organ transplant/GI disease [...] Social History Tobacco Use Smoking status: Never Passive exposure: Past Smokeless tobacco: Former Types: Chew Quit date: 11/15/2019 Tobacco comments: not sure of exact date quit chewing but several years ago Substance Use Topics Alcohol use: Not Currently Comment: quit February 2023 Current Outpatient Medications Medication Instructions calcitriol (ROCALTROL) 0.25 mcg, Oral, Daily, Take 1 capsule daily only on 5 days in the week ( Wednesday to Wednesday only) Calcium-Vitamin D (CALTRATE 600 PLUS-VIT D PO) [...] reviewed this encounter and updated as appropriate: REVIEW OF SYSTEMS A 14 point ROS was obtained and is negative except as otherwise noted in HPI. PHYSICAL EXAMINATION Visit Vitals BP 121/77 (BP Location: Right arm, Patient Position: Sitting, BP Cuff Size: Large adult) Pulse 55 Temp 36.4 ??C (97.6 ??F) (Oral) SpO2 98% Constitutional: No acute distress. Weight 105 kg (231 lb 4.2 oz) Height 1.678 m (5' 6.06 ) BMI: Body mass index is 37.26 kg/m??. BSA: Body surface area is 2.21 meters squared. HEENT: normal. Cardiovascular: No JVD, no edema Pulmonary: Normal effort of breathing. Abdominal: no distension Musculoskeletal: Normal extremity movements Skin: No rashes or lesions. Neurologic: No focal deficits Psychiatric: Orientated to person, place, and time: Normal Mood and affect LAB RESULTS Renal Panel: Lab Results Component Value Date GLUCOSE 87 06/04/2025 NA 137 06/04/2025 K 3.6 06/04/2025 CL 111 06/04/2025 CO2 27 06/04/2025 BUN 9 06/04/2025 CREATININE 0.8 06/04/2025 CREATININE 0.70 04/30/2025 CREATININE 0.80 04/02/2025 CREATININE 0.72 03/14/2025 CREATININE 0.70 03/05/2025 CREATININE 0.70 02/05/2025 EGFR 97 06/04/2025 CYSTATIN 1.03 11/14/2024 CALCIUM 8.1 06/04/2025 PHOS 3.4 11/14/2024 ALBUMIN 2.0 06/04/2025 MBD: Lab Results Component Value Date PTH 20 11/14/2024 PTH 20 10/04/2024 CALCIUM 8.1 06/04/2025 CALCIUM 8.4 04/30/2025 CALCIUM 7.4 04/02/2025 CALCIUM 8.1 (L) 03/14/2025 CALCIUM 7.5 03/05/2025 CALCIUM 8.6 02/05/2025 ICAS 4.7 11/14/2024 ICAS 4.7 10/04/2024 PHOS 3.4 11/14/2024 MG 1.9 11/14/2024 ALBUMIN 2.0 06/04/2025 ALBUMIN 1.9 04/30/2025 ALBUMIN 2.1 04/02/2025 ALBUMIN 2.3 (L) 03/14/2025 ALBUMIN 1.9 03/05/2025 ALBUMIN 2.3 02/05/2025 ALKPHOS 240 06/04/2025 ALKPHOS 168 04/30/2025 ALKPHOS 197 04/02/2025 ALKPHOS 206 (H) 03/14/2025 ALKPHOS 239 03/05/2025 ALKPHOS 179 02/05/2025 Endocrine profile: Lab Results Component Value Date TESTOS 281.0 11/14/2024 FTPGML 42.2 11/14/2024 TSH 3.90 04/11/2024 Outside labs 06/04/2025 Creatinine 0.8 calcium 8.1 phos 3.7 albumin 2.0 corrected calcium 10.1 ALP 239 Vitamin-D 42.4 BSAP 33.4 Ferritin 147 CBC: Lab Results Component Value Date WBC 3.8 06/04/2025 RBC 3.31 06/04/2025 HGB 11.00 06/04/2025 HCT 33.6 06/04/2025 PLT 57 06/04/2025 MCV 104 (H) 03/14/2025 MCH 34.7 (H) 03/14/2025 MCHC 33.3 03/14/2025 RDW 15.8 (H) 03/14/2025 NRBC 0.0 03/14/2025 Iron studies: Lab Results Component Value Date FERRITIN 77.9 03/26/2025 IRON 86 04/11/2024 TIBC 239 (L) 04/11/2024 Bone Turnover Markers: Lab Results Component Value Date BSAP 39.0 (H) 11/14/2024 CTELOX 361 11/14/2024 NTELOPEPTS 19.6 11/14/2024 OSTEOCALCIN 17 11/14/2024 VITAMIN D 25 Lab Results Component Value Date VITD25 10.9 (L) 11/14/2024 VITD25 11.9 (L) 04/11/2024 VITAMIN D 1,25 Lab Results Component Value Date 25HYDRDT 21.1 11/14/2024 Nutritional: Lab Results Component Value Date PREALBUMIN 4.2 (L) 11/14/2024 Paraproteinemia Labs: Lab Results Component Value [...] PHOSUR 45.1 11/14/2024 CREATUR 114 11/14/2024 ASSESSMENT/PLAN Tanner Pop is a 65 y.o. male who [...] biopsy. Problem List Items Addressed This Visit None Visit Diagnoses Age-related osteoporosis without current pathological fracture - Primary Relevant Medications calcitriol (Rocaltrol) 0.25 MCG capsule Other Relevant Orders Follow Up Bone Mineral Metabolism Vitamin D 25 Hydroxy Calcium, Random, Urine Creatinine, Random, Urine Osteocalcin by ECIA C-Telopeptide Renal Function Panel, Plasma Bone Specific Alkaline Phosphatase Alkaline Phosphatase PTH Panel 1 He has not had any fractures, he [...] intake of Ca and take vit D 0423-9748 units daily, he has also been prescribed [...] diagnostic impressions, importance of compliance with treatment, mcc nature of condition, and need for continued [...] contact me. Orders Placed This Encounter Procedures Vitamin D 25 Hydroxy Standing Status: Future Expected Date: 09/17/2025 Expiration Date: 12/12/2026 [facility] [1] Calcium, Random, Urine Standing Status: Future Expected Date: 09/17/2025 Expiration Date: 12/12/2026 [facility]: Immediate [1] Creatinine, Random, Urine Standing Status: Future Expected Date: 09/17/2025 Expiration Date: 12/12/2026 [facility]: Immediate [1] Osteocalcin by ECIA Standing Status: Future Expected Date: 09/17/2025 Expiration Date: 12/12/2026 [facility]: Immediate [1] C-Telopeptide Standing Status: Future Expected Date: 09/17/2025 Expiration Date: 12/12/2026 [facility]: Immediate [1] Renal Function Panel, Plasma Standing Status: Future Expected Date: 09/17/2025 Expiration Date: 12/12/2026 [facility]: Immediate [1] Bone Specific Alkaline Phosphatase Standing Status: Future Expected Date: 09/17/2025 Expiration Date: 12/12/2026 [facility]: Immediate Alkaline Phosphatase Standing Status: Future Expected Date: 09/17/2025 Expiration Date: 12/12/2026 [facility]: Immediate PTH Panel 1 Standing Status: Future Expected Date: 09/17/2025 Expiration Date: 12/12/2026 [facility]: Immediate Follow Up Bone Mineral Metabolism Labs with Tx visit Standing Status: Future Expected Date: 10/09/2025 Expiration Date: 07/09/2026 Referral Priority: Routine Referral Type: Consultation Number of Visits Requested: 1 Electronically Signed by: Moustapha Katz MD - 06/10/2025 - 11:03 AM documented in this encounter Plan of Treatment Upcoming Encounters Date Type Department Care Team (Late st Contact Info) Description 09/12/2025 8:30 AM EDT Clinical Support [facility] [place] [address] [place] [address] 09/12/2025 10:00 AM EDT Office Visit [facility] [place] [id number] [place] [address] Portia Maguire MD [address] [place] [address] 10/03/2025 12:45 PM EST Office Visit Medical Office Building Urology [address] [facility], [address] [place] [address] Suhail Brock MD [address] [place] [address] 10/18/2025 4:20 PM EST Office Visit [facility] [address] [facility], [address] [place] [address] Moustapha Katz MD [address] [facility] [address] [place] [address] Scheduled Orders Name Type Priority Associated Diagnoses Orde r Schedule Vitamin D 25 Hydroxy Lab Routine Age-related osteoporosis without current pathological fracture Expected: 09/17/2025 (Approximate), Expires: 12/12/2026 Calcium, Random, Urine Lab Routine Age-related osteoporosis without current pathological fracture Expected: 09/17/2025 (Approximate), Expires: 12/12/2026 Creatinine, Random, Urine Lab Routine Age-related osteoporosis without current pathological fracture Expected: 09/17/2025 (Approximate), Expires: 12/12/2026 Osteocalcin by ECIA Lab Routine Age-related osteoporosis without current pathological fracture Expected: 09/17/2025 (Approximate), Expires: 12/12/2026 C-Telopeptide Lab Routine Age-related osteoporosis without current pathological fracture Expected: 09/17/2025 (Approximate), Expires: 12/12/2026 Renal Function Panel, Plasma Lab Routine Age-related osteoporosis without current pathological fracture Expected: 09/17/2025 (Approximate), Expires: 12/12/2026 Bone Specific Alkaline Phosphatase Lab Routine Age-related osteoporosis without current pathological fracture Expected: 09/17/2025 (Approximate), Expires: 12/12/2026 Alkaline Phosphatase Lab Routine Age-related osteoporosis without current pathological fracture Expected: 09/17/2025 (Approximate), Expires: 12/12/2026 PTH Panel 1 Lab Routine Age-related osteoporosis without current pathological fracture Expected: 09/17/2025 (Approximate), Expires: 12/12/2026 Scheduled Referrals Name Type Priority Associated Diagnoses Orde r Schedule Follow Up Bone Mineral Metabolism Outpatient Referral Routine Age-related osteoporosis without current pathological fracture Expected: 10/09/2025, Expires: 07/09/2026 documented as of this encounter Visit Diagnoses Diagnosis Age-related osteoporosis without current pathological fracture- Primary documented in this encounter Additional Health Concerns Assessment Noted Time PHQ-9 Depression Total Score: 0 10/04/20 12:32 PM EST A fall risk assessment has been complete d for the patient 06/08/2025 9:04 AM EDT A Body Mass Index follow-up plan has been documented for the patient 03/14/2025 10:10 AM EDT documented as of this encounter Care Teams Collar Baster Jumpbasting Relationship Specialty Start Date End Date Chris Medel MD [address] [place] [address] PCP - General 03/14/25 Ruma Hernádnez APRN [address] [address] Referring Physician Gastroenterology 07/30/23 documented as of this encounter
--- OUTSIDE RECORDS SUMMARY | 2025-06-13 07:05 | XMS_ITS | Encounter Summary ---
Author Organization Healthcare Address [address] [place] [address] Care Team Providers Care Tie Loader Name Role Phone Ruma Hernández EXTRUSION PRESS OPERATOR Unavailable [phone] Chris Medel MD Primary Care Provider [phone] Encounter Details Date Type Department Care Team (Latest Contact Info) Description 06/13/2025 7:05 AM EDT - 06/13/2025 9:55 AM EDT Hospital Encounter [facility] [address] [place] [address] Pre-liver transplant, listed Discharge Disposition: Home or [...] How often do you attend [facility] or methodist services? More than 4 times per year 02/19/2025 Do you belong to any clubs o r organizations such as buddhism groups, unions, [employer] or athletic groups, or school groups? Yes [...] How often do you attend chur or methodist services? More than 4 times [...] and heating? Not hard at all 06/15/2025 [facility] of Occupat [...] were you homeless or living in a correction (including now)? No 06/15/2025 CAGE ASSESSMENT Answer [...] drink first t luisa in the morning (EYE-SHOE LACER) to steady your nerves or to get rid of a hangover? 0 06/14/2025 CAGE Questionnaire Score 0 025 Utilities Answer Date Recorded In the past 12 months has e epicurio, gas, oil, or water [employer] threatened to shut off services in your [...] occasion? Never 06/15/2025 9:39 AM EDT Lisa Gutiérrez, R N * Calculated C-SSRS Risk Score (Lifetime/Recent) Answer [...] 09/13/2024 5 ergocalciferol (Vitamin D-2) 1.25 MG (80854 UT) capsule Take 1 capsule by mouth [...] Description 09/12/2025 8:30 AM EDT Clinical Support [facility] [address] [facility] [address] [place] [address] 09/12/2025 10:00 AM EDT Office Visit [facility] [address] [place] [address] Portia Maguire MD [address] [place] [address] 10/03/2025 12:45 PM EST Office Visit Medical Office Building Urology [address], [address] [place] [address] Suhail Brock MD [address] [place] [address] 10/18/2025 4:20 PM EST Office Visit Professional [facility] [address], [address] [place] [address] Moustapha Katz MD [address] [place] [address] documented as of this encounter [...] Gloria Alexander MD on 06/13/2025 11:30 AM Narrative 06/13/2025 [...] signing this report, I, the attending physician, jimiat I have personally reviewed the images/data for [...] documented as of this encounter Care Teams Tie Loader Relationship Specialty Start Date End Date Chris Medel MD [address] [place] [address] PCP - General 03/14/25 Ruma Hrenández APRN [address] [facility] [address] [place] [address] Referring Physician Gastroenterology 07/30/23 documented as of this encounter
--- OUTSIDE RECORDS SUMMARY | 2025-06-13 08:00 | XMS_ITS | Encounter Summary ---
Author Organization Healthcare Address [address] [place] [address] Care Team Providers Care Planer Setup Operator Name Role Phone Ruma Hernández ASSISTANT MAINTENANCE MANAGER Unavailable [phone] Chris Medel MD Primary Care Provider [phone] Reason for Referral * Imaging (Urgent) - Closed Specialty Diagnoses / Procedures Referred By Gianna reyes Referred To Contact Radiology Diagnoses Alcoholic cirrhosis, unspecified whether ascites present (CMS/HCC) Procedures US Liver Screen Portia Maguire MD [address] [place] [address] Phone: tel: fax: Referral ID Status Reason Start Date Expiration Date Visits Re quested Visits Authorized [id number] Closed 06/13/2025 12/13/2026 1 1 Reason for Visit * Reason Comments Pre-Liver Txp Follow-up Encounter Details Date Type Department Care Team (Latest Contact Info) Description 06/13/2025 8:00 AM EDT Office Visit [facility] [address] [facility] [address] [place] [address] Portia Maguire MD [address] [place] [address] Alcoholic cirrhosis, unspecified whether ascites present (CMS/HCC) (Primary Dx); Pre-liver transplant, listed; Alcoholic cirrhosis of liver with ascites (CMS/HCC); Cirrhosis of liver with ascites, unspecified hepatic cirrhosis type (CMS/HCC); Hemochromatosis associated with compound heterozygous mutation in HFE gene; Hepatic encephalopathy (CMS/HCC); Esophageal varices without bleeding, unspecified esophageal varices type (CMS/HCC) Social History Tobacco Use Types Packs/Day Years [...] often do you attend chur ch or spiritism services? More than 4 times [...] week 06/15/2025 How often do you attend [facility] or spiritism services? More than 4 [...] and heating? Not hard at all 06/15/2025 [facility] [...] any time in the past 12 m [facility], were you homeless or living in a intermediate (including now)? No 06/15/2025 CAGE ASSESSMENT Answer [...] drink first t luisa in the morning (EYE-FILTER CLOTH MAKER) to steady your nerves or to get [...] Sign Reading Time Taken Comments Blood Pressure 96/60 06/13/2025 7:03 AM EDT Pulse 87 06/13/2025 7:03 AM EDT Temperature 36.9 C (98.4 F) 06/13/2025 7:03 AM EDT Respiratory Rate 16 06/13/2025 7:03 AM EDT Oxygen Saturation 99% 06/13/2025 7:03 AM EDT Inhaled Oxygen Concentration - - Weight 103 kg (227 lb 1.2 oz) 06/13/2025 7:03 AM EDT Height 167.6 cm (5' 6 ) 06/13/2025 7:03 AM EDT Body Mass Index 36.65 06/13/2025 7:03 AM EDT documented in this encounter Functional Status * AUDIT-C Score [...] AM EDT Lisa Gutiérrez R N * Calculated C-SSRS Risk Score (Lifetime/Recent) Answer Date of Assessment Author No Risk Indicated 06/14/2025 9:23 PM EDT Chapito Jarrett * Question Answer Date of Assessment Author 1. Wish to be (Past 1 Month) No 025 9:23 PM EDT Chapito Jarrett 2. Non-Specific Active Suici alisson Thoughts (Past 1 Month) No 06/14/2025 9:23 PM EDT Chapiot Jarrett 6. Suicidal Behavior (Lifetime) No 9:23 PM EDT Chapito Jarrett documented as of this encounter Miscellaneous Notes * Progress Notes - Bebeto Perales MD - 06/13/2025 8:00 AM EDT Subjective Patient ID: Tanner Pop is a 65 y.o. male. Chief Complaint Patient presents with Pre-Liver Txp Follow-up HPI Mr. 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 Howell with General Surgery on 02/19/25 - deferring surgery. Following with Dr. Katz Furosemide 40 mg daily and spironolactone 100 mg daily but still having difficulties w leg swelling No melena, hematemesis, coffee ground emesis. Now having some abd pain over the past few day and says he feels his abd is becoming more distended. No recent fevers and feels his PNA is resolving. Bedside US w/o appreciable pocket. Still taking coreg BID but BP low. Endorses decreased energy but no falls. 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 MRI showed hepatic iron deposition. The following portions of the chart were reviewed this encounter and updated as appropriate: Tobacco Allergies Meds Problems Med Hx Surg Hx Fam Hx Review of Systems All other systems reviewed and are negative. Objective Physical Exam Vitals reviewed. Constitutional: General: He is not in acute distress. Appearance: He is not toxic-appearing. HENT: Head: Normocephalic and atraumatic. Right Ear: External ear normal. Left Ear: External ear normal. Nose: Nose normal. Mouth/Throat: Mouth: Mucous membranes are moist. Pharynx: Oropharynx is clear. Eyes: General: Scleral icterus present. Right eye: No discharge. Left eye: No discharge. Conjunctiva/sclera: Conjunctivae normal. Cardiovascular: Rate and Rhythm: Normal rate. Heart sounds: Normal heart sounds. No murmur heard. Pulmonary: Effort: Pulmonary effort is normal. No respiratory distress. Breath sounds: Normal breath sounds. Abdominal: General: Bowel sounds are normal. There is no distension. Palpations: Abdomen is soft. Tenderness: There is no abdominal tenderness. There is no guarding. Musculoskeletal: General: No deformity or signs of injury. Right lower leg: Edema present. Left lower leg: Edema present. Skin: General: Skin is warm. Coloration: Skin is not jaundiced. Findings: No bruising. Neurological: General: No focal deficit present. Mental Status: He is alert and oriented to person, place, and time. Psychiatric: Mood and Affect: Mood normal. Behavior: Behavior normal. Assessment/Plan Mr. 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, MZ phenotype for A1AT seen in follow up MELD 3.0: 26 at 06/13/2025 6:50 AM MELD-Na: 25 at 06/13/2025 6:50 AM Calculated from: Serum Creatinine: 0.97 mg/dL (Using min of 1 mg/dL) at 06/13/2025 6:50 AM Serum Sodium: 134 mmol/L at 06/13/2025 6:50 AM Total Bilirubin: 7.4 mg/dL at 06/13/2025 6:50 AM Serum Albumin: 2.1 g/dL at 06/13/2025 6:50 AM INR(ratio): 2.2 at 06/13/2025 6:50 AM Age at listin years Sex: Male at 06/13/2025 6:50 AM Up from lower 20's on recent labs iso increase in bili and INR Accompanied by Stacy # Decompensated alcohol-associated cirrhosis, iron overload; 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 Previously getting monthly phlebotomy based on labs, goes monthly for labs --not currently listed for OLT but now with resolution of PNA can relist --> will discuss w selection committee --avoid NSAIDs, SHAUN-I/ARBs, CCBs, alcohol, can take tylenol <2000 mg/day # Ascites - controlled # LE edema - mild to moderate No H/O SBP or LVP current diuretic regimen Lasix 40mg/d and Aldactone 100mg/d but takes an extra dose of each as needed --continue low Na diet --continue current diuretic dose --no appreciable fluid pocket on bedside US --formal US ordered #Hepatic encephalopathy- controlled. Has lactulose PRN On xifaxan 550 mg BID # H/O esophageal varices/ no prior history of bleeding varices Had gr 2 EV. had stopped carvedilol 3.125mg bid due to weakness/tremors/shaking, but also just had first phlebotomy, diet changes/restriction. Carvedilol was restarted in 09/2023, and has been 3.125 mg BID. Given low BP, will stop coreg for now Discussed keeping home log and getting readings to coordinator If BP okay, can start nadolol at 20mg # HCC surveillance- -US liver screen 09/13/2024: No liver lesions -CT abd 03/14/25: LI-RADS Negative -AFP normal 02/2025 --repeat US screen today # Renal stones Follows with urology, current plan is monitoring Health maintenance- -Immune for Hep A and hepatitis B -03/31/23 colonoscopy - 2 5-8mm transverse colon polyps; 15mm sigmoid colon polyp; 4-6 sigmoid colonpolyps; 1 10mm sigmoid colon polyp. 5mm descending colon polyp; diverticulosis in sigmoid,descending colon. Internal hemorrhoids. Continue monthly labs RTC in 4 wks Transplant status: to be re-listed Extensively counseled the patient and family about patient's lab results and work-up, impressions, prognosis, risks/benefits of current treatment options, risk factor reduction, and instructions for management. Care coordination provided included review and summary of medical records and additional diagnosticresearch, phone collaboration and consult with peers. Bebeto Perales MD Internal Medicine, PGY-2 Cosigned by Portia Maguire MD at 06/17/2025 10:48 PM EDT Associated attestation - Portia Maguire MD - 06/17/2025 10:48 PM EDT I saw and evaluated the patient with the resident/fellow. I discussed the case with the resident/fellow and agree with the findings and plan as documented. Portia Maguire MD documented in this encounter Plan of Treatment Upcoming Encounters Date Type Department Care Team (Late st Contact Info) Description 09/12/2025 8:30 AM EDT Clinical Support [facility] [place] [address] [place] [address] 09/12/2025 10:00 AM EDT Office Visit [facility] [place] [address] [place] [address] Portia Maguire MD [address] [place] [address] 10/03/2025 12:45 PM EST Office Visit Medical Office Building Urology [address] [facility], [address] [place] [address] Suhail Brock MD [address] [place] [address] 10/18/2025 4:20 PM EST Office Visit [facility] [address] [facility], [address] [place] [address] Moustapha Katz MD [address] [place] [address] documented as of this encounter Results * US Liver Screen (06/13/2025 10:34 AM EDT) Anatomical Region Laterality Modality Abdomen, Liver Ultrasound Impressions 06/13/2025 2:49 PM EDT Cirrhosis. No focal liver lesion. Splenomegaly. Moderate volume ascites. Category Score US-1 Negative. No US evidence of HCC. No observation or Only definitely benign observation(s). Continue with regular screening. Visualization Score Vis A. No or minimal limitations. Limitations if any are unlikely to meaningfully affect sensitivity. The above scoring system and recommendations are based on Ultrasound LI-RADS version 2017. [email or web address] CRITICAL RESULT: No. COMMUNICATION: Per this written report. By electronically signing this report, I, the attending physician, attest that I have personally reviewed the images/data for the above examination(s) and agree with the final edited report. Drafted by Tye Kenney MD on 06/13/2025 2:04 PM Final report signed by Arturo Wasserman MD on 06/13/2025 2:49 PM Narrative 06/13/2025 2:49 PM EDT CLINICAL INDICATION: worsening hyperbilirubinemia in decompensated cirrhotic patient TECHNIQUE: Multiplanar limited evaluation of the hepatic vasculature was undertaken, including the acquisition of Color and Spectral Doppler images. Multiplanar static and cine tobias scale ultrasound images of the abdomen were also obtained. COMPARISON: CT abdomen and pelvis 03/14/2025 US liver screen 09/13/2024 FINDINGS: Grayscale: Liver: Cirrhotic hepatic morphology with coarse in echotexture. No suspicious lesions are visualized Portal Vein: Portal vein appears patent. There is antegrade flow. Gallbladder: Unremarkable gallbladder without evidence of wall thickening, pericholecystic fluid or gallstones. Common Duct: 2 mm Spleen: The spleen is enlarged measuring 16 cm. There are splenic varices seen on color Doppler (for example image 40). Free Fluid: There is a moderate amount of ascites Procedure Note Arturo Wasserman MD - 06/13/2025 CLINICAL INDICATION: worsening hyperbilirubinemia in decompensated cirrhotic patient TECHNIQUE: Multiplanar limited evaluation of the hepatic vasculature was undertaken,including the acquisition of Color and Spectral Doppler images.Multiplanar static and cine tobias scale ultrasound images of the abdomenwere also obtained. COMPARISON: CT abdomen and pelvis 03/14/2025 US liver screen 09/13/2024 FINDINGS: Grayscale: Liver: Cirrhotic hepatic morphology with coarse in echotexture. Nosuspicious lesions are visualized Portal Vein: Portal vein appears patent. There is antegrade flow.Gallbladder: Unremarkable gallbladder without evidence of wall thickening,pericholecystic fluid or gallstones. Common Duct: 2 mm Spleen: The spleen is enlarged measuring 16 cm. There are splenic varicesseen on color Doppler (for example image 40). Free Fluid: There is a moderate amount of ascites IMPRESSION: Cirrhosis. No focal liver lesion. Splenomegaly. Moderate volume ascites. Category Score US-1 Negative. No US evidence of HCC. No observation orOnly definitely benign observation(s). Continue with regular screening. Visualization Score Vis A. No or minimal limitations. Limitations if anyare unlikely to meaningfully affect sensitivity. The above scoring system and recommendations are based on UltrasoundLI-RADS version 2017. [email or web address] -[email or web address] .[email or web address] CRITICAL RESULT: No. COMMUNICATION: Per this written report. By electronically signing this report, I, the attending physician, alec I have personally reviewed the images/data for the aboveexamination(s) and agree with the final edited report. Drafted by Tye Kenney MD on 06/13/2025 2:04 PM Final report signed by Arturo Wasserman MD on 06/13/2025 2:49 PM us Portia Maguire MD IMG US PROCEDURES Final R esult documented in this encounter Visit Diagnoses Diagnosis Alcoholic cirrhosis, unspecified whether ascites present (CMS/HCC)- Primary Pre-liver transplant, listed Cirrhosis of liver with ascites, unspecified hepatic cirrhosis type (CMS/HCC) Hemochromatosis associated with compound heterozygous mutation in HFE gene Hepatic encephalopathy (CMS/HCC) Hepatic encephalopathy Esophageal varices without bleeding, unspecified esophageal varices type (CMS/HCC) Alcoholic cirrhosis, unspecified whether ascites present (CMS/HCC) documented in this encounter Additional Health Concerns Assessment Noted Time PHQ-9 Depression Total Score: 0 10/04/20 24 12:32 PM EST A fall risk assessment has been complete d for the patient 06/13/2025 7:34 AM EDT A Body Mass Index follow-up plan has been documented for the patient 06/18/2025 1:07 PM EDT documented as of this encounter Care Teams Planer Setup Operator Relationship Specialty Start Date End Date Chris Medel MD [address] [place] [address] PCP - General 03/14/25 Ruma Hernández APRN [address] [facility] [place] [address] Referring Physician Gastroenterology 07/30/23 documented as of this encounter
--- OUTSIDE RECORDS SUMMARY | 2025-06-13 09:56 | XMS_ITS | Encounter Summary ---
Author Organization Healthcare Address [address] [place] [address] Care Team Providers Care Correctional Officer Name Role Phone Ruma Hernández KNOCKER OFF Unavailable [phone] Chris Medel MD Primary Care Provider [phone] Reason for Referral * Imaging (Urgent) - Closed Specialty Diagnoses / Procedures Referred By Gianna reyes Referred To Contact Radiology Diagnoses Alcoholic cirrhosis, unspecified whether ascites present (CMS/HCC) Procedures US Liver Screen Portia Maguire MD [address] [address] Phone: tel: fax: Referral ID Status Reason Start Date Expiration Date Visits Re quested Visits Authorized [id number] Closed 06/13/2025 12/13/2026 1 1 Reason for Visit * Imaging (Urgent) - Closed Specialty Diagnoses / Procedures Referred By Contru reyes Referred To Contact Radiology Diagnoses Alcoholic cirrhosis, unspecified whether ascites present (CMS/HCC) Procedures US Liver Screen Portia Maguire MD [address] [address] Phone: tel: fax:[phone] Referral ID Status Reason Start Date Expiration Date Visits Re quested Visits Authorized [id number] Closed 06/13/2025 12/13/2026 1 1 Encounter Details Date Type Department Care Team (Latest Contact Info) Description 06/13/2025 9:56 AM EDT - 06/13/2025 10:35 AM EDT Hospital Encounter [facility] Radiology [address] [place] [address] Alcoholic cirrhosis, unspecified whether ascites present (CMS/HCC) [...] often do you attend chur ch or adventist services? More than 4 times per year [...] week 06/15/2025 How often do you attend [facility] or adventist services? More than 4 times per year [...] and heating? Not hard at all 06/15/2025 [facility] of Occupat ional Health - Occupational Stress [...] any time in the past 12 m [facility], were you homeless or living in a custodial (including now)? No 06/15/2025 CAGE ASSESSMENT Answer [...] drink first t luisa in the morning (EYE-OUTBOARD TECHNICIAN) to steady your nerves or to get rid of a hangover? 0 06/14/2025 CAGE Questionnaire Score 0 025 Utilities Answer Date Recorded In the past 12 months has th e [employer], gas, oil, or water company threatened to [...] 11 09/13/2024 ergocalciferol (Vitamin D-2) 1.25 MG (92045 UT) capsule Take 1 capsule by mouth [...] Description 09/12/2025 8:30 AM EDT Clinical Support [facility] [address] [place] [address] 09/12/2025 10:00 AM EDT Office Visit [facility] [address] [place] [address] Portia Maguire MD [address] [place] [address] 10/03/2025 12:45 PM EST Office Visit Medical Office Building Urology [address] [facility], [address] [place] [address] Suhail Brock MD [address] [place] [address] 10/18/2025 4:20 PM EST Office Visit [facility] [address] [facility], [address] [place] [address] Moustapha Katz MD [address] [facility] [address] [place] [address] documented as of this encounter [...] are based on Ultrasound LI-RADS version 2017. [email or web address]-Algorithm-Portrait -2017 .pdf CRITICAL RESULT: No. COMMUNICATION: Per [...] recommendations are based on UltrasoundLI-RADS version 2017. [email or web address]-Algorithm-Portrait -2017 .pdf CRITICAL RESULT: No. COMMUNICATION: Per [...] documented as of this encounter Care Teams Correctional Officer Relationship Specialty Start Date End Date Chris Medel MD [address] [place] [address] PCP - General 03/14/25 Ruma Hernández APRN 17[address] [facility] 202 [place] [address] Referring Physician Gastroenterology 07/30/23 documented as of this encounter
--- OUTSIDE RECORDS SUMMARY | 2025-06-13 10:36 | XMS_ITS | Encounter Summary ---
Author Organization Healthcare Address [address] [place] [address] Care Team Providers Care Regrader Name Role Phone Ruma Hernández BEHAVIORAL HEALTH THERAPIST Unavailable [phone] Chris Medel MD Primary Care Provider [phone] Reason for Referral * Imaging (Routine) - Closed Specialty Diagnoses / Procedures Referred By Gianna t Referred To Contact Cardiology Diagnoses Pre-liver transplant, listed Procedures Echo, Adult Transthoracic (TTE) Complete Zarina Moore PA [address] [address] Phone: tel: fax: Referral ID Status Reason Start Date Expiration Date V isits Requested Visits Authorized [id number] Closed Perform Procedure 03/22/2025 09/21/2026 1 1 Reason for Visit * Imaging (Routine) - Closed Specialty Diagnoses / Procedures Referred By Contac t Referred To Contact Cardiology Diagnoses Pre-liver transplant, listed Procedures Echo, Adult Transthoracic (TTE) Complete Zarina Moore PA [address] [address] Phone: tel: fax: Referral ID Status Reason Start Date Expiration Date V isits Requested Visits Authorized [id number] Closed Perform Procedure 03/22/2025 09/21/2026 1 1 Encounter Details Date Type Department Care Team (Latest Contact Info) Description 06/13/2025 10:36 AM EDT - 06/13/2025 12:56 PM EDT Hospital Encounter Cardiac Imaging [address] [place] [address] Pre-liver transplant, listed Discharge Disposition: Home or [...] often do you attend chur ch or congregation services? More than 4 times [...] [facility] or [facility] services? More than 4 times [...] and heating? Not hard at all 06/15/2025 [employer] of Occupat ional Health - [...] any time in the past 12 m [facility], were you homeless or living in a [...] drink first t luisa in the morning (EYE-ANTITANK ASSAULT GUNNER) to steady your nerves or to get [...] 11 09/13/2024 ergocalciferol (Vitamin D-2) 1.25 MG (02974 UT) capsule Take 1 capsule by mouth [...] Upcoming Encounters Date Type Department Care Team ([facility] Contact Info) Description 09/12/2025 8:30 AM EDT Clinical Support [facility] [place] [address] [place] [address] 09/12/2025 10:00 AM EDT Office Visit [facility] [place] [address] [place] [address] Portia Maguire MD [address] [place] [address] 10/03/2025 12:45 PM EST Office Visit Medical Office Building Urology [facility] [address] [facility], [address] [place] [address] Suhail Brock MD [address] [place] [address] 10/18/2025 4:20 PM EST Office Visit Professional [employer] [place] [facility] Min[facility] Metabolism [address], [address] [place] [address] Moustapha Katz MD [address] [place] [address] documented as of this encounter [...] documented as of this encounter Care Teams Regrader Relationship Specialty Start Date End Date Chris Medel MD [address] [place] [address] PCP - General 03/14/25 Ruma Hernández APRN [address] [facility] [address] [place] [address] Referring Physician Gastroenterology 07/30/23 documented as of this encounter
--- OUTSIDE RECORDS SUMMARY | 2025-06-13 12:57 | XMS_ITS | Encounter Summary ---
Author Organization Healthcare Address [address] [place] [address] Care Team Providers Care Client Director Name Role Phone Ruma Hernández IN FLIGHT REFUELING MANAGER Unavailable [phone] Chris Medel MD Primary Care Provider [phone] Reason for Referral * Imaging (Routine) - Closed Specialty Diagnoses / Procedures Referred By Gianna reyes Referred To Contact Radiology Diagnoses Pre-liver transplant, listed Procedures CT Angio Cardiac Coronary Arteries Zarina Moore PA [address] [address] Phone: tel: fax: Referral ID Status Reason Start Date Expiration Date Visits Re quested Visits Authorized [id number] Closed 03/22/2025 09/21/2026 1 1 Reason for Visit * Imaging (Routine) - Closed Specialty Diagnoses / Procedures Referred By Gianna reyes Referred To Contact Radiology Diagnoses Pre-liver transplant, listed Procedures CT Angio Cardiac Coronary Arteries Zarina Moore PA [address] [address] Phone: tel: fax: Referral ID Status Reason Start Date Expiration Date Visits Re quested Visits Authorized [id number] Closed 03/22/2025 09/21/2026 1 1 Encounter Details Date Type Department Care Team (Latest Contact Info) Description 06/13/2025 12:57 PM EDT - 06/13/2025 11:59 PM EDT Hospital Encounter [facility] [address] [place] [address] Chris Knott RN CH-TARIK Richard 5 T2 [...] do you attend [facility] or anabaptist services? More than 4 [...] Recorded Patient Health Questionnaire-2 Score 0 06/08/2025 [facility] [...] time in the past 12 m [facility], were you homeless or living in a [...] drink first t luisa in the morning (EYE-ENTREPRENEURSHIP PROGRAM DIRECTOR) to steady your nerves or to get rid of a hangover? 0 06/14/2025 CAGE Questionnaire Score 0 025 Utilities Answer Date Recorded In the past 12 months has th [employer], gas, oil, or water [employer] threatened to shut off services in your [...] 09/13/2024 5 ergocalciferol (Vitamin D-2) 1.25 MG (98969 UT) capsule Take 1 capsule by mouth [...] from the original note were not included. 73874 Understanding coronary computed tomography angiography (CCTA) Coronary [...] site Last Reviewed Date: 2024 00:00:00 ?? 3914-1149 The [employer]. All rights reserved. This information is not intended as a substitute for professional medical care. Always follow your healthcare professional's instructions. documented in this encounter Plan of Treatment Upcoming Encounters Date Type Department Care Team ([facility] Contact Info) Description 09/12/2025 8:30 AM EDT Clinical Support [facility] [address] [place] [address] 09/12/2025 10:00 AM EDT Office Visit [facility] [address] [place] [address] Portia Maguire MD [address] [place] [address] 10/03/2025 12:45 PM EST Office Visit Medical Office Building Urology [address] [facility], [address] [place] [address] Suhail Brock MD [address] [place] [address] 10/18/2025 4:20 PM EST Office Visit [facility] [address], [address] [place] [address] Moustapha Katz MD [address] [place] [address] documented as of this encounter [...] source 192 MDCT scanner (Somatom Force, Siemens First Opinion Systems) was used for data acquisition. A [...] documented as of this encounter Care Teams Client Director Relationship Specialty Start Date End Date Chris Medel MD [address] [place] [address] PCP - General 03/14/25 Ruma Hernández APRN [address] [place] [address] Referring Physician Gastroenterology 07/30/23 documented as of this encounter
--- OUTSIDE RECORDS SUMMARY | 2025-06-14 15:47 | XMS_ITS | Encounter Summary ---
Author Organization Healthcare Address [address] [place] [address] Care Team Providers Care Janitorial Assistant Name Role Phone Ruma Hernández REGIONAL MARKETING MANAGER Unavailable [phone] Chris Medel MD Primary Care Provider [phone] Reason for Visit * Auth/Cert (Routine) Specialty Diagnoses / Procedures Referred By Contru t Referred To Contact Diagnoses Transplant Luis Angel Bee MD [address] [address] Phone: tel: fax: [facility] Inpatient [address] [place] [address] Phone: tel: Referral ID Status Reason Start Date Expiration Date Visits Re quested Visits Authorized [id number] 1 1 Encounter Details Date Type Department Care Team (Late st Contact Info) Description 06/14/2025 3:47 PM EDT - 06/15/2025 6:14 PM EDT Hospital Encounter [facility] Inpatient [address] [place] [address] Luis Angel Bee MD [address] [address] Alcoholic cirrhosis, unspecified whether ascites [...] often do you attend [facility] or religion services? More than 4 times [...] How often do you attend chur or religion services? More than 4 times [...] and heating? Not hard at all 06/15/2025 [facility] [place] Occupat ional Health - Occupational Stress [...] drink first t luisa in the morning (EYE-DISK AND TAPE MACHINE TENDER) to steady your nerves or to get [...] Commonly known as: Coreg ergocalciferol 1.25 MG (28353 UT) capsule Take 1 capsule by mouth [...] Department Center 07/11/2025 9:00 AM TRANSPLANT LAB [facility] 07/11/2025 10:30 AM Portia Maguire MD [facility] 10/03/2025 12:45 PM Suhail Brock MD [facility] 10/18/2025 4:20 PM [facility] documented in this encounter Medications at [...] 11 09/13/2024 ergocalciferol (Vitamin D-2) 1.25 MG (55585 UT) capsule Take 1 capsule by mouth [...] 65 yo M who was admitted to [facility] on 06/14 for possible liver transplant. [...] and Address: Chris Medel MD [address] [facility] [address] Referring provider name and address: No referring provider defined for this encounter. Chief Concern, Brief History of Present Illness, and Hospital Course David Serrano is a 65 yo M with history of alcohol-associated cirrhosis, renal Stones, GERD, Gout, hypocalcemia, and history of iron overload requiring therapeutic phlebotomy who was admitted to [facility] on 06/14 for possible liver transplant. [...] a day with meals. ergocalciferol 1.25 MG (86435 UT) capsule Commonly known as: Vitamin D-2 [...] Commonly known as: Coreg ergocalciferol 1.25 MG (70643 UT) capsule Take 1 capsule by mouth [...] Department Center 07/11/2025 9:00 AM TRANSPLANT LAB [facility] 07/11/2025 10:30 AM Portia Maguire MD [facility] 10/03/2025 12:45 PM Suhail Brock MD [facility] 10/18/2025 4:20 PM Moustapha Katz MD [facility] [...] prior to discharge. Luis Angel Bee M.D. plate molder Department of Surgery / Transplantation [facility] [email or web address] Transplant Center, [address], [place] [address] Dictation software disclaimer: Parts of this note was generated using voice recognition equipment and technology provided by the [facility]. Despite a reasonable effort at proofreading, it is subject to retail loan originator assistant related errors, omissions, spelling errors, changes in [...] since 06/13 ergocalciferol (Vitamin D-2) 1.25 MG (36969 UT) capsule 06/08/2025 No Yes Sig: Take [...] daily. Facility-Administered Medications: None Patients Preferred Pharmacy* [facility] - [place], [place] - [address] [facility] [address] [facility] [address] *May default to [facility] if patient is enrolled to [id number] Service. Pharmacy Benefits ZACHDAIVD BB CDH-N [id number] ([facility]) Covered: <b>Retail</b>, <b>Mail Order</b>, Specialty Unknown: Long- Term Care BIN: [id number] : 1960 Group ID: [id number] PCN: [id number] Legal sex: M Group name: [employer] OF Address: [address] [place], [place] [id number] Additional Comments: ARCADE ATTENDANT list has been updated to align with [...] agree with the information documented above. All student/product managent intern notes from collection of information has been reviewed. Medications match pt indications and PMHx. * Progress Notes - Dear, Lisa Conley RN - 06/15/2025 9:03 AM EDT Case Management Adult Initial Progress Note David Serrano 65 y.o. male CSN: [id number] Admission: 06/14/2025 3:47 PM Primary Problem: Alcoholic cirrhosis, unspecified whether ascites present (CMS/HCC) Lbd Teacher reviewed chart and spoke with patient to complete this Initial Case Management Assessment. PCP: Chris Medel MD Emergency Contact: Extended Emergency Contact Information Primary Emergency Contact: ZachStacy natarajan Address: [address] [place] [address] [place] [address] [facility] Relation: Spouse Preferred language: Upper Sorbian Slackline Operator needed? No Secondary Emergency Contact: Lan Serrano Mobile Relation: Son Preferred language: Upper Sorbian Slackline Operator needed? No Insurance: Primary Visit Coverage Payer Plan Sponsor Code Group Number Group Name NANCY CRUZ [place]/TER[facility]ANCE [facility] [id number] Primary Visit Coverage Subscriber Subscriber ID Subscriber Name Subscriber SSN Subscriber Address [id number] DAVID SERRANO [id number] [place] [address] [address] [address] Patient information: [place] - [phone] = Secondary Emergency Contact. Pt admitted for [...] Pt can walk up flight of steps. [address] [place] [address] [address] [address] Current DME: No DME in use. Income Information: Greater than 115 K per month. 2 in household. Housing Circumstances-Z Codes: Private home with 1 [address]. Single story home. City water. Patient Referred to: Pt would agree to [facility] referral if recommended. Anticipated Discharge Date: TBD Patient's Discharge Goal: HWA Assistance Available at Discharge: = primary care Secondary care givers = friend/ neighbors Discharge Transport: Follow Up Transport: Home Health / Home Infusion / Outpatient Dialysis Services: No history of home health. No history of home infusion. No history of dialysis. Living Will/Advance Directive/Power of Mastic Floor Layer /Guardian: Unable to assess: No Have you reviewed your Advance Directive and is it valid for this stay?: Yes Advance Directive: Patient has advance directive, copy not in chart Advance Directive not in Chart: Copy requested from family (pt states they will call nascar driver) Information Provided on Healthcare Directives: Yes Pre-existing [...] from the original note were not included. [facility] Department of Surgery Division of Abdominal Transplant Surgery History & Physical/Consult Note Subjective History of Present Illness: Chief Complaint: presenting for liver transplant David Serrano is a 65 y.o. male with PMHx significant for alcohol- associated cirrhosis, history of Renal Stones, GERD, Gout, hypocalcemia, and history of iron overload requiring therapeutic phlebotomy. He presents to [facility] on 06/14/2025 for liver transplantation. No recent [...] Maguire MD ergocalciferol (Vitamin D-2) 1.25 MG (15397 UT) capsule Take 1 capsule by mouth [...] are based on Ultrasound LI-RADS version 2017. [email or web address]/-/[email or web address] XR CHEST 2 VIEWS (06/13) IMPRESSION: No acute focal airspace disease. Radiographic Interpretation: I have reviewed the imaging above and agree with the radiologist interpretation. Assessment/Plan Assessment & Plan: David Serrano is a 65 y.o. male with PMHx significant for alcohol- associated cirrhosis, history of Renal Stones, GERD, Gout, hypocalcemia, and history of iron overload requiring therapeutic phlebotomy. He presents to [facility] on 06/14/2025 for liver transplantation. He denies any changes to his health since last seen. Consent was obtained on 06/14/25. Plan: - Admit to [facility] Assessment & Plan Alcoholic cirrhosis, [...] prior to discharge. Luis Angel Bee M.D. plate molder Department of Surgery / Transplantation [facility] [email or web address] Transplant Center, [address], [place] [address] Dictation software disclaimer: Parts of this note was generated using voice recognition equipment and technology provided by the [facility]. Despite a reasonable effort at proofreading, it is subject to retail loan originator assistant related errors, omissions, spelling errors, changes in dictated words, and words inserted which may have been misinterpreted by voice dictation software. Meaning of words may require interpretation in the appropriate context of the sentence and clinical situation. documented in this encounter Plan of Treatment Upcoming Encounters Date Type Department Care Team (Late st Contact Info) Description 09/12/2025 8:30 AM EDT Clinical Support [facility] [place] [address] [facility] [address] [place] [address] 09/12/2025 10:00 AM EDT Office Visit [facility] [place] [address] [place] [address] Portia Maguire MD [address] [facility] [address] [place] [address] 10/03/2025 12:45 PM EST Office Visit Medical Office Building Urology [address] [facility], [address] [place] [address] Suhail Brock MD [address] [place] [address] 10/18/2025 4:20 PM EST Office Visit [employer] [place] [facility] [address] [facility], [address] [place] [address] Moustapha Katz MD [address] [facility] [address] [place] [address] Pending Results Name Type Priority [...] ECG Atrial Rate 65 BPM MUSE ECG DE Interval 162 ms MUSE ECG QRSD Interval 86 ms MUSE ECG QT Interval 446 ms MUSE ECG QTC Interval 463 ms MUSE ECG P [place] 4 degrees MUSE ECG R [place] 58 degrees MUSE ECG T Wave [place] 22 degrees MUSE ECG Diagnosis Normal sinus rhythm MUSE ECG Diagnosis Cannot rule out Anterior infarct , age undetermined MUSE ECG Diagnosis Abnormal ECG MUSE ECG Diagnosis MUSE ECG Diagnosis Confirmed by Max Gregorio ([id number]) on 06/15/2025 3:47:28 PM MUSE ECG 06/15/2025 10:3 5 AM EDT 06/15/2025 3:47 PM EDT us Mary INTERIANO ECG ORDERABLES Final Result MUSE ECG * SARS CoV-2/COVID-19 by PCR - Rapid (06/14/2025 6:47 PM EDT) Pathologist [facility] SARS CoV-2/COVID-1 9 RNA PCR Result Not Detected Not Detected 06/14/2025 8:35 PM EDT [facility] Swab Nasopharyngeal structure / Unknown Non-blood Collection / Unknown 06/14/2025 6:47 PM EDT 06/14/2025 7:49 PM EDT Narrative [facility] - 06/14/2025 8:35 PM EDT This [...] This test was performed on the Xpert XpVitaPortal SARS CoV-2 Plus assay test, a PCR- [...] MICROBIOLOGY - GENERA L ORDERABLES Final Result [facility] [address] [place] [address] * Leticia auris Surveillance by PCR (06/14/2025 6:47 PM EDT) Leticia auris PCR Result Not Detected Not Detected 06/18/2025 5:43 AM EDT [facility] Swab (Axilla and Groin) Non-blood Collection / Unknown 06/14/2025 6:47 PM EDT 06/14/2025 7:49 PM EDT Narrative [facility] - 06/18/2025 5:43 AM EDT This PCR assay was developed and its performance characteristics determined by [facility] as appropriate for clinical purposes. This assay has not been cleared or approved by the FDA, but is performed in a CLIA regulated laboratory that is qualified to perform high-complexity testing. us Luis Angel Bee MD LAB MICROBIOLOGY - GENERA L ORDERABLES Final Result [facility] [address] [place] [address] * Cytomegalovirus Antibody IgG (06/14/2025 6:31 PM EDT) Pathologist [facility] CMV ANTIBODY IGG <0.20 <=0.59 U/mL 06/16/2025 9:07 PM EDT [facility] ([place]) Blood Venous blood specimen / Unknown Venipuncture / Unknown 06/14/2025 6:31 PM EDT 06/14/2025 7:05 PM EDT Narrative [facility] BILL) - 06/16/2025 9:07 PM [...] laboratory at the same time. Performed By: [employer] [address] [place] [address] Overlay Plastician: Balwinder Wadsworth MD, PhD CLIA Number: [id number] us Luis Angel Bee MD LAB BLOOD ORDERABLES Nadia crockett Result [facility]) [address] [place] [address] * Light Green Top (06/14/2025 6:31 PM EDT) Pathologist [facility] Extra Hold for add-ons 06/14/2025 11:01 PM EDT [facility] Comment:Auto resulted. Blood Venous blood specimen / Unknown 06/14/2025 6:31 PM EDT 06/14/2025 8:12 PM EDT Result Neto Bee MD LAB BLOOD ORDERABLES Nadia l Result Performing Organization Address City/[facility]/ZIP Co de Phone Number [facility] [address] [place] [address] * Red Top (06/14/2025 6:31 PM EDT) [facility] Extra Hold for add-ons 06/14/2025 11:01 PM EDT [facility] Comment:Auto resulted. Blood Venous blood specimen / Unknown 06/14/2025 6:31 PM EDT 06/14/2025 8:12 PM EDT Result Neto Bee MD LAB BLOOD ORDERABLES Nadia l Result Performing Organization Address [facility] Co de Phone Number [facility] [address] [place] [address] * HIV 1 & 2 Antibody/Antigen Screen (06/14/2025 6:31 PM EDT) [facility] HIV 1 & 2 Antibody/Antigen Screen Non Reactive Non Reactive 06/14/2025 7:45 PM EDT [facility] Comment:Screening for HIV 1 & 2 antibodies, and P24 antigen is NONREACTIVE. No confirmatory testing is required. Blood Venous blood specimen / Unknown Venipuncture / Unknown 06/14/2025 6:31 PM EDT 06/14/2025 7:05 PM EDT Result Neto Bee MD LAB BLOOD ORDERABLES Nadia l Result Performing Organization Address City/[facility]/ZIP Co de Phone Number [facility] [address] [place] [address] * Hepatitis C Virus (HCV) Quantitative PCR (06/14/2025 6:31 PM EDT) [facility] Hepatitis C Virus (HCV) Quantitative Interpretation Not Detected Not Detected. 06/18/2025 10:15 PM EDT [facility] Blood Venous blood specimen / Unknown Venipuncture / Unknown 06/14/2025 6:31 PM EDT 06/15/2025 8:51 AM EDT Narrative [facility] - 06/18/2025 10:15 PM EDT [employer] M2000 HCV test is a Real Time [...] ORDERABLES Nadia l Result Performing Organization Address City/[facility]/ZIP Co de Phone Number [facility] [address] [place] [address] * Hepatitis C Antibody (06/14/2025 6:31 PM EDT) Hepatitis C Antibody Negative Negative 06/14/2025 7:45 PM EDT [facility] Blood Venous blood specimen / Unknown Venipuncture / Unknown 06/14/2025 6:31 PM EDT 06/14/2025 7:05 PM EDT us Luis Angel Bee MD LAB BLOOD ORDERABLES Nadia l Result [facility] [address] [place] [address] * Hepatitis B Surface Antigen (06/14/2025 6:31 PM EDT) Hepatitis B Surf Antigen Negative Negative 06/14/2025 8:18 PM EDT [facility] Blood Venous blood specimen / Unknown Venipuncture / Unknown 06/14/2025 6:31 PM EDT 06/14/2025 7:05 PM EDT us Luis Angel Bee MD LAB BLOOD ORDERABLES Nadia l Result Performing Organization Address [facility] Co de Phone Number [facility] [address] [place] [address] * (ABNORMAL) Hepatitis B Surface Antibody, Quantitative (06/14/2025 6:31 PM EDT) [facility] Hepatitis B Surface Antibody, Quantitative 34.47(H) NonReacti ve: <8, Grayzone: 8 - <12, Reactive: >= 12 mIU/mL 06/14/2025 8:18 PM EDT [facility] Comment: Reactive. Individual is considered immune to HBV infection. Blood Venous blood specimen / Unknown Venipuncture / Unknown 06/14/2025 6:31 PM EDT 06/14/2025 7:05 PM EDT us Luis Angel Bee MD LAB BLOOD ORDERABLES Nadia l Result Performing Organization Address [facility] Co de Phone Number [facility] [address] [place] [address] * Hepatitis B Core Total Antibody IgG,IgM (06/14/2025 6:31 PM EDT) [facility] Hepatitis B Core Total Antibody IgG,IgM Negative Negative 06/14/2025 8:18 PM EDT [facility] Blood Venous blood specimen / Unknown Venipuncture / Unknown 06/14/2025 6:31 PM EDT 06/14/2025 7:05 PM EDT us Luis Angel Bee MD LAB BLOOD ORDERABLES Nadia l Result Performing Organization Address City/[facility]/ZIP Co de Phone Number [facility] [address] [place] [address] * (ABNORMAL) Vitamin D 25 Hydroxy (06/14/2025 6:31 PM EDT) [facility] Vitamin D 25 Hydroxy 10.8(L) 20.0 - 80.0 ng/mL 06/14/2025 8:19 PM EDT [facility] Blood Venous blood specimen / Unknown Venipuncture / Unknown 06/14/2025 6:31 PM EDT 06/14/2025 7:05 PM EDT Narrative [facility] - 06/14/2025 8:19 PM EDT Testing performed on Rivera Calibrator Barometers, standardized against NIST SRM 2972. When testing [...] MD LAB BLOOD ORDERABLES Nadia crockett Result [facility] [address] [place] [address] * (ABNORMAL) CBC and Differential (06/14/2025 6:31 PM EDT) WBC Count 7.95 3.70 - 10.30 10*3/uL LAB HEMATOLOGY METHOD 06/14/2025 7:24 PM EDT [facility] RBC Count 2.90(L) 4.60 - 6.10 10*6/uL LAB HEMATOLOGY METHOD 06/14/2025 7:24 PM EDT [facility] HGB 10.1(L) 13.7 - 17.5 g/dL LAB HEMATOLOGY METHOD 06/14/2025 7:24 PM EDT [facility] HCT 29.7(L) 40.0 - 51.0 % LAB HEMATOLOGY METHOD 06/14/2025 7:24 PM EDT [facility] Platelet Count 56(L) 155 - 369 10*3/uL LAB HEMATOLOGY METHOD 06/14/2025 7:24 PM EDT [facility] MCV 102(H) 79 - 98 fL LAB HEMATOLOGY METHOD 06/14/2025 7:24 PM EDT [facility] MCH 34.8(H) 26.0 - 32.0 pg LAB HEMATOLOGY METHOD 06/14/2025 7:24 PM EDT [facility] MCHC 34.0 30.7 - 35.5 g/dL LAB HEMATOLOGY METHOD 06/14/2025 7:24 PM EDT [facility] RDW 16.9(H) 11.5 - 14.5 % LAB HEMATOLOGY METHOD 06/14/2025 7:24 PM EDT [facility] MPV 11.5 8.8 - 12.5 fL LAB HEMATOLOGY METHOD 06/14/2025 7:24 PM EDT [facility] nRBC 0.0 <=0.0 per 100 WBCs LAB HEMATOLOGY METHOD 06/14/2025 7:24 PM EDT [facility] Differential Type Automated LAB HEMATOLOGY METHOD 06/14/2025 7:24 PM EDT [facility] Neutrophils % 56 % LAB HEMATOLOGY METHOD 06/14/2025 7:24 PM EDT [facility] Lymphocytes % 25 % LAB HEMATOLOGY METHOD 06/14/2025 7:24 PM EDT [facility] Monocytes % 13 % LAB HEMATOLOGY METHOD 06/14/2025 7:24 PM EDT [facility] Eosinophils % 4 % LAB HEMATOLOGY METHOD 06/14/2025 7:24 PM EDT [facility] Basophils % 1 % LAB HEMATOLOGY METHOD 06/14/2025 7:24 PM EDT [facility] Immature Granulocytes % 1 % LAB HEMATOLOGY METHOD 06/14/2025 7:24 PM EDT [facility] Neutrophils Absolute 4.56 1.60 - 6.10 10*3/uL LAB HEMATOLOGY METHOD 06/14/2025 7:24 PM EDT [facility] Lymphocytes Absolute 1.97 1.20 - 3.90 10*3/uL LAB HEMATOLOGY METHOD 06/14/2025 7:24 PM EDT [facility] Monocytes Absolute 1.03(H) 0.30 - 0.90 10*3/uL LAB HEMATOLOGY METHOD 06/14/2025 7:24 PM EDT [facility] Eosinophils Absolute 0.31 0.00 - 0.50 10*3/uL LAB HEMATOLOGY METHOD 06/14/2025 7:24 PM EDT [facility] Basophils Absolute 0.04 0.00 - 0.10 10*3/uL LAB HEMATOLOGY METHOD 06/14/2025 7:24 PM EDT [facility] Immature Granulocytes Absolute 0.04 0.00 - 0.06 10*3/uL LAB HEMATOLOGY METHOD 06/14/2025 7:24 PM EDT [facility] Blood Venous blood specimen / Unknown Venipuncture / Unknown 06/14/2025 6:31 PM EDT 06/14/2025 7:06 PM EDT Narrative [facility] - 06/14/2025 7:24 PM EDT Therapeutic decision making should be based on absolute values, rather than percentages. us Luis Angel Bee MD LAB BLOOD ORDERABLES Nadia l Result Performing Organization Address City/[facility]/ZIP Co de Phone Number [facility] [address] [place] [address] * Type and screen (06/14/2025 6:31 PM [...] ORDER MARYA Final Result Performing Organization Address [facility] Co de Phone Number BLOOD BANK [address] [place] [address], * (ABNORMAL) Protime-INR (06/14/2025 6:31 PM EDT) Prothrombin Time 25.9(H) 12.0 - 14.3 sec LAB COAGULATION METHOD 06/14/2025 7:23 PM EDT [facility] INR 2.3(H) 0.9 - 1.1 LAB COAGULATION METHOD 06/14/2025 7:23 PM EDT [facility] Blood Venous blood specimen / Unknown Venipuncture / Unknown 06/14/2025 6:31 PM EDT 06/14/2025 7:05 PM EDT Narrative [facility] - 06/14/2025 7:23 PM EDT OPTIMAL INR RANGES FOR PATIENT ON ORAL ANTICOAGULANT THERAPY Prevention of venous thromboembolism INR 2.0 to 3.0 In patients with heart disease: Atrial fibrillation INR 2.0 to 3.0 Valvular heart disease INR 2.0 to 3.0 Tissue heart valves INR 2.0 to 3.0 Mechanical prosthetic valves INR 2.5 to 3.5 Prevention of recurrent DE INR 2.5 to 3.5 us Luis Angel Bee MD LAB BLOOD ORDERABLES Nadia l Result Performing Organization Address [facility]/ZIP Co de Phone Number [facility] [address] [place] [address] * (ABNORMAL) APTT (06/14/2025 6:31 PM EDT) aPTT 47(H) 25 - 35 sec LAB COAGULATION METHOD 06/14/2025 7:23 PM EDT [facility] Blood Venous blood specimen / Unknown Venipuncture / Unknown 06/14/2025 6:31 PM EDT 06/14/2025 7:05 PM EDT us Luis Angel Bee MD LAB BLOOD ORDERABLES Nadia l Result Performing Organization Address [facility]/ZIP Co de Phone Number [facility] [address] [place] [address] * (ABNORMAL) Comprehensive metabolic panel (06/14/2025 6:31 PM EDT) Glucose, Plasma 86 74 - 99 mg/dL 06/14/2025 7:35 PM EDT [facility] BUN, Plasma 21 8 - 23 mg/dL 06/14/2025 7:35 PM EDT [facility] Creatinine, Plasma 1.28(H) 0.70 - 1.20 mg/dL 06/14/2025 7:35 PM EDT [facility] BUN/Creatinine Ratio 16 06/14/2025 7:35 PM EDT [facility] Sodium, Plasma 135(L) 136 - 145 mmol/L 06/14/2025 7:35 PM EDT [facility] Potassium, Plasma 3.9 3.6 - 4.9 mmol/L 06/14/2025 7:35 PM EDT [facility] Chloride, Plasma 104 97 - 107 mmol/L 06/14/2025 7:35 PM EDT [facility] CO2, Plasma 24 22 - 29 mmol/L 06/14/2025 7:35 PM EDT [facility] Anion Gap 7 6 - 16 mmol/L 06/14/2025 7:35 PM EDT [facility] Total Calcium, Plasma 7.6(L) 8.9 - 10.2 mg/dL 06/14/2025 7:35 PM EDT [facility] Total Protein 5.6(L) 6.3 - 7.9 g/dL 06/14/2025 7:35 PM EDT [facility] Albumin, Plasma 1.8(L) 3.5 - 5.2 g/dL 06/14/2025 7:35 PM EDT [facility] [facility] AST, Plasma 38 10 - 50 U/L 06/14/2025 7:35 PM EDT [facility] ALT, Plasma 31 10 - 50 U/L 06/14/2025 7:35 PM EDT [facility] Alkaline Phosphatase, Plasma 178(H) 40 - 115 U/L 06/14/2025 7:35 PM EDT [facility] Total Bilirubin, Plasma 6.6(H) 0.2 - 1.1 mg/dL 06/14/2025 7:35 PM EDT [facility] eGFRcr 62.5 mL/min/1.7 3m*2 06/14/2025 7:35 PM EDT [facility] Comment:Reported eGFRcr in m L/min/1.73m2 is based the CKD-EPI 2020 equation that does not use a race coefficient. Blood Venous blood specimen / Unknown Venipuncture / Unknown 06/14/2025 6:31 PM EDT 06/14/2025 7:05 PM EDT us Luis Angel Bee MD LAB BLOOD ORDERABLES Nadia crockett Result [facility] [address] [place] [address] documented in this encounter Visit Diagnoses Diagnosis [...] documented as of this encounter Care Teams Janitorial Assistant Relationship Specialty Start Date End Date Chris Medel MD [address] [place] [address] PCP - General 03/14/25 Ruma Hernández APRN [id number] [place] [address] Referring Physician Gastroenterology 07/30/23 documented as of this encounter
--- OUTSIDE RECORDS SUMMARY | 2025-06-15 23:59 | XMS_ITS | Encounter Summary ---
Author Organization [facility] Address [address] [place] [address] Care Team Providers Care Semi Automatic Sewing Machine Operator Name Role Phone Ruma Hernández SECURITY MANAGER Unavailable [phone] Chris Medel MD Primary Care Provider [phone] Encounter Details Date Type Department Care Team (Late st Contact Info) Description 06/15/2025 11:59 PM EDT Anesthesia Event P[facility] A OPERATING ROOM [address] [place] [address] Mary Castellon, LAISHA [address] [facility] [address] [place] [address] Fanta Morrissey APRN [address] [place] [address] Anesthesia Record Procedure Summary Procedure Name Responsible [...] r organizations such as amish groups, unions, fraVirally or athletic groups, or school groups? Yes [...] week 06/15/2025 How often do you attend [facility] [...] and heating? Not hard at all 06/15/2025 [facility] - Occupational Stress Questionnaire Answer Date Recorded [...] any time in the past 12 m [facility], were you homeless or living in a [...] drink first t luisa in the morning (EYE-ELECTRONIC WARFARE TECHNICAL) to steady your nerves or to get rid of a hangover? 0 06/14/2025 CAGE Questionnaire Score 0 025 Utilities Answer Date Recorded In the past 12 months has th [employer], gas, oil, or water [employer] threatened to shut off services in your [...] Description 09/12/2025 8:30 AM EDT Clinical Support [facility] [address] [place] [address] 09/12/2025 10:00 AM EDT Office Visit [facility] [address] [place] [address] Portia Maguire MD [address] [facility] [address] [place] [address] 10/03/2025 12:45 PM EST Office Visit Medical Office Building Urology [address] [facility], [address] [place] [address] Suhail Brock MD [address] [place] [address] 10/18/2025 4:20 PM EST Office Visit [facility] [place] [facility] [address] [facility], [address] [place] [address] Moustapha Katz MD [address] [facility] 401 [place] [address] documented as of this encounter Visit Diagnoses [...] documented as of this encounter Care Teams Semi Automatic Sewing Machine Operator Relationship Specialty Start Date End Date Chris Medel MD [address] [place] [address] PCP - General 03/14/25 Ruma Hernández APRN [address] [place], [place] [address] Referring Physician Gastroenterology 07/30/23 documented as of this encounter
--- OUTSIDE RECORDS SUMMARY | 2025-07-11 09:30 | XMS_ITS | Encounter Summary ---
Author Organization [facility] Address [address] [place] [address] Care Team Providers Care Senior Dynamics Crm Developer Name Role Phone Ruma Hernández ELECTRICAL TEST TECHNICIAN Unavailable [phone] Chris Medel MD Primary Care Provider [phone] Encounter Details Date Type Department Care Team (Late st Contact Info) Description 07/11/2025 9:30 AM EDT Social Work [facility] [address] [place] [address] Liliane Jacobs, [place] [id number] Social History Tobacco Use Types Packs/Day Years [...] [facility] you attend [facility] or mandaen services? More than 4 times [...] week 06/15/2025 How often do you attend [facility] or mandaen services? More than 4 times [...] and heating? Not hard at all 06/15/2025 [facility] Occupat ional [facility] - Occupational Stress Questionnaire Answer Date [...] any time in the past 12 [facility], were you homeless or living in [...] drink first t luisa in the morning (EYE-DIVISION MERCHANDISE MANAGER) to steady your nerves or to get rid of a hangover? 0 06/14/2025 CAGE Questionnaire Score 0 025 Utilities Answer Date Recorded In the past 12 months has th [employer], gas, oil, or water [employer] threatened to shut off services in your [...] present at assessment: patient and , Stacy Cane Flume Watcher: Meaghan Le RN David Pop is a 65 y.o. male with a diagnosis of decompensated alcohol associated cirrhosis . He is being evaluated for a liver transplant. Primary language: Stateless Bahai/spirituality: Evangelical Do you have any mandaen, ethical or personal objections to accepting blood products, surgery and/or transplant? No Citizenship Where were you born? [place] Family Background and Supportive Relationships Parental information: mother at [facility] in [place]; dad Sibling information: 1 brother and 1 sister, both in [place]; good relationship with both Children: son, Lan, ; daughter Gloria; Gloria is in [place], Lan in [place] Marital/relationship status: Stacy, spouse; [phone], 31 years Household composition: patient and spouse Babysit grandkids on occasion, but they are going to daycare soon - young Support / Caregiver Plans Who will be your primary caregiver? Stacy, Health status & availability: works in [employer], can work remote if need be - [...] local housing required? No, patient lives in [place], [place], about an hour away Insurance benefit for local housing? N/a Education / Employment / Financial Situation What is your highest level of education? Graduated HS Are you able to read and write? 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 no Have you applied for disability? N/a Do you have short term or watermaster disability available thru work? no Financial Status [...] NANCY - NANCY CANOI* MELE POP* Self [id number] [id number] What is your yearly insurance deductible? $3500 [...] needs for transplant. 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 yes Impression Low Risk -1;Moderate Risk -2;High Risk -3;Absolute contraindication -4 Social Support: 1 Identified Strengths / Risks: patient with good family support and extended support network of friends. present for eval and is able to work remote should she need to. Financial / Insurance: 1 Identified Strengths / Risks: patient with [place] traditional plan until age 66 when he [...] Description 09/12/2025 8:30 AM EDT Clinical Support [facility] [place] [address] [place] [address] 09/12/2025 10:00 AM EDT Office Visit [facility] [place] [address] [place] [address] Portia Maguire MD [address] [facility] [address] [place] [address] 10/03/2025 12:45 PM EST Office Visit Medical Office Building Urology [address] [facility], [address] [place] [address] Suhail Brock MD [address] [facility] [address] [place] [address] 10/18/2025 4:20 PM EST Office Visit [facility] [place] [facility] [address] [facility], [address] [place] [address] Moustapha Katz MD [address] [facility] [address] [place] [address] documented as of this encounter [...] as of this encounter Care Teams Senior Dynamics Crm Developer Relationship Specialty Start Date End Date Chris Medel MD [address] [place] [address] PCP - General 03/14/25 Ruma Hernández APRN [address] [facility] [address] [place] [address] Referring Physician Gastroenterology 07/30/23 documented as of this encounter
--- OUTSIDE RECORDS SUMMARY | 2025-07-11 10:30 | XMS_ITS | Encounter Summary ---
Author Organization Healthcare Address [address] [place] [address] Care Team Providers Care Public Relations Consultant Name Role Phone Ruma Hernández EQUIPMENT OPERATOR/LABORER Unavailable [phone] Chris Medel MD Primary Care Provider [phone] Reason for Visit * Reason Comments Pre-Liver Txp Follow-up Encounter Details Date Type Department Care Team (Late st Contact Info) Description 07/11/2025 10:30 AM EDT Office Visit [facility] [address] [place] [address] Portia Maguire MD [address] [facility] [address] [place] [address] Cirrhosis of liver with ascites, [...] How often do you attend chur or sabianism services? More than 4 times per year 02/19/2025 Do you belong to any clubs o r organizations such as adventist groups, [employer], [employer] or athletic groups, or school groups? Yes [...] week 06/15/2025 How often do you attend [facility] or sabianism services? More than 4 times [...] and heating? Not hard at all 06/15/2025 [facility] of Occupat ional Health - Occupational [...] drink first t luisa in the morning (EYE-ENRICHMENT TEACHER) to steady your nerves or to get rid of a hangover? 0 06/14/2025 CAGE Questionnaire Score 0 025 Utilities Answer Date Recorded In the past 12 months has th [employer], gas, oil, or water [employer] threatened to shut off services in [...] visit for left inguinal hernia, saw Dr. Hwoell with General Surgery on 02/19/25 - deferring [...] 09/12/2025 8:30 AM EDT Clinical Support [facility] [address] [place] [address] 09/12/2025 10:00 AM EDT Office Visit [facility] [address] [place] [address] Portia Maguire MD [address] [place] [address] 10/03/2025 12:45 PM EST Office Visit Medical Office Building Urology [address], [address] [place] [address] Suhail Brock MD [address] [place] [address] 10/18/2025 4:20 PM EST Office Visit [facility] [address], [address] [place] [address] Moustapha Katz MD [address] [place] [address] documented as of this encounter [...] documented as of this encounter Care Teams Public Relations Consultant Relationship Specialty Start Date End Date Chris Medel MD [address] [place], [place] [id number] PCP - General 03/14/25 Ruma Hernández APRN [address] [place] [address] Referring Physician Gastroenterology 07/30/23 documented as of this encounter
--- OUTSIDE RECORDS SUMMARY | 2025-08-01 07:13 | XMS_ITS | Encounter Summary ---
Author Organization Healthcare Address [address] [place] [address] Care Team Providers Care Director Cost Name Role Phone Ruma Hernández DRILLING CONTRACTOR Unavailable [phone] Chris Medel MD Primary Care Provider [phone] Encounter Details Date Type Department Care Team (Late st Contact Info) Description 07/05/2025 Results Follow-Up [facility] Transplant Center [address] [place] [address] Meaghan Le, RN [facility] LIVER [id number] [address] [place] [address] Social History Tobacco Use Types [...] week 02/19/2025 How often do you attend [facility] or religion services? More than 4 times [...] and heating? Not hard at all 06/15/2025 [facility] of Occupat ional [facility] - Occupational Stress Questionnaire Answer [...] drink first t luisa in the morning (EYE-CLASS C DRIVER) to steady your nerves or to get rid of a hangover? 0 06/14/2025 CAGE Questionnaire Score 0 025 Utilities Answer Date Recorded In the past 12 months has th [employer], gas, oil, or water [employer] threatened to shut off services in your [...] Clinical Support [facility] Transplant [place] [address] [email or web address] [address] [place] [address] 09/12/2025 10:00 AM EDT Office Visit [facility] [place] [address] [place] [address] Portia Maguire MD [address] [facility] [address] [place] [address] 10/03/2025 12:45 PM EST Office Visit Medical Office Building Urology [address] [facility], [address] [place] [address] Suhail Brock MD [address] [facility] [address] [place] [address] 10/18/2025 4:20 PM EST Office Visit Professional [email or web address] [place] [facility] [address] [facility], [address] [place] [address] Moustapha Katz MD [address] [facility] [address] [place] [address] documented as of this encounter [...] as of this encounter Care Teams Director Cost Relationship Specialty Start Date End Date Chris Medel MD [address] [place] [address] PCP - General 03/14/25 Ruma Hernández APRN [address] [place] [address] Referring Physician Gastroenterology 07/30/23 documented as of this encounter
--- OUTSIDE RECORDS SUMMARY | 2025-08-01 07:14 | XMS_ITS | Encounter Summary ---
Author Organization Healthcare Address [address] [place] [address] Care Team Providers Care Leasing Specialist Name Role Phone Ruma Hernández MEDICAL RECORDS ADMINISTRATOR Unavailable [phone] Chris Medel MD Primary Care Provider [phone] Encounter Details Date Type Department Care Team (Late st Contact Info) Description 04/03/2025 Results Follow-Up [facility] Transplant [facility] [address] [place] [address] Meaghan Le, RN [facility] LIVER [id number] [address] [place] [address] Social History Tobacco Use Types [...] How often do you attend chur or mandaen services? More than 4 times [...] Questionnaire-2 Score 0 03/14/2025 [facility] [place] [facility] - Occupational Stress Questionnaire [...] Upcoming Encounters Date Type Department Care Team ([facility] st Contact Info) Description 09/12/2025 8:30 AM EDT Clinical Support [facility] Transplant [place] [address] [facility] [address] [place] [address] 09/12/2025 10:00 AM EDT Office Visit [facility] [place] [address] [facility] [address] [place] [address] Portia Maguire MD [address] [facility] [address] [place] [address] 10/03/2025 12:45 PM EST Office Visit Medical Office Building Urology [address] [facility], [address] [place] [address] Suhail Brock MD [address] [facility] [address] [place] [address] 10/18/2025 4:20 PM EST Office Visit Professional [employer] [place] [facility] [address] [facility], [address] [place] [address] Moustapha Katz MD [address] [facility] [address] [place] [address] documented as of this encounter [...] documented as of this encounter Care Teams Leasing Specialist Relationship Specialty Start Date End Date Chris Medel MD [address] [place] [address] PCP - General 03/14/25 Ruma Hernández APRN [address] [place] [address] Referring Physician Gastroenterology 07/30/23 documented as of this encounter
--- OUTSIDE RECORDS SUMMARY | 2025-08-01 07:14 | XMS_ITS | Encounter Summary ---
Author Organization Healthcare Address [address] [place] [address] Care Team Providers Care Administration Physician Name Role Phone Ruma Hernández REGIONAL PROJECT MANAGER Unavailable [phone] Chris Medel MD Primary Care Provider [phone] Encounter Details Date Type Department Care Team [...] 06/15/2025 How often do you attend [facility] or temple services? More than 4 times [...] and heating? Not hard at all 06/15/2025 [facility] [place] of Occupat ional Health - Occupational Stress [...] drink first t luisa in the morning (EYE-HEEL BURNISHER) to steady your nerves or to get [...] Description 09/12/2025 8:30 AM EDT Clinical Support [facility] Transplant Center [address] [place] [address] 09/12/2025 10:00 AM EDT Office Visit [facility] Transplant Center [address] [place] [address] Portia Maguire MD [address] [place] [address] 10/03/2025 12:45 PM EST Office Visit Medical Office Building Urology [facility] [address] [facility], [address] [place] [address] Suhail Brock MD [address] [facility] [address] [place] [address] 10/18/2025 4:20 PM EST Office Visit Professional [employer] [place] [facility] [address], [address] [place] [address] Moustapha Katz MD [address] [facility] [address] [place] [address] documented as of this encounter [...] documented as of this encounter Care Teams Administration Physician Relationship Specialty Start Date End Date Chris Medel MD [address] [place] [address] PCP - General 03/14/25 Ruma Hernández APRN [address] [place] [address] [address] [place] [address] Referring Physician Gastroenterology 07/30/23 documented as of this encounter
--- OUTSIDE RECORDS SUMMARY | 2025-08-01 07:14 | XMS_ITS | Clinical Summary ---
Author Organization [facility] Address [address] [place] [address] Care Team Providers Care Resident Assistant Cna Name Role Phone ToniUrban morataya DO Primary Care Provider [phone] Allergies Active Allergy Reactions Criticality Noted Date [...] 12/28/2023, 06/29/2023, 06/02/2023 COVID-19 Vaccine ( season) 2025 INFLUENZA VACCINE 08/15/2025 COLONOSCOPY 03/31/2026 03/31/2023 COLORECTAL [...] Recently Relevant to Health Maintenance Insurance [facility] BLUE SHIELD PPO Member Subscriber Plan / Payer (Ef fective 2023-Present) Name:David Pop Relation to Subscriber:Self Name:David Pop Payer ID:[id number] ([facility]) Type:Not on file Address: [address] [place] [id number] Care Teams Resident Assistant Cna Relationship Specialty Start Date End Date Urban Brantley DO [address] [place] [address] PCP - General Internal Medicine 03/22/23
--- OUTSIDE RECORDS SUMMARY | 2025-08-01 07:14 | XMS_ITS | Encounter Summary ---
Author Organization Healthcare Address [address] [place] [address] Care Team Providers Care Tortilla Maker Name Role Phone Ruma Hernández NUCLEAR PHYSICIST Unavailable [phone] Chris Medel MD Primary Care Provider [phone] Encounter Details Date Type Department Care Team (Late st Contact Info) Description 06/13/2025 Telephone [facility] [address] [place] [address] Zeferino Trejo, PharmD Social History [...] How often do you attend chur or adventist services? More than 4 times per year 02/19/2025 Do you belong to any clubs o r organizations such as taoism groups, unions, fraternal or athletic groups, or [...] do you attend [facility] or adventist services? More than 4 times per year 06/15/2025 Do you belong to any clubs o r organizations such as taoism groups, unions, fraternal or athletic groups, or [...] at all 06/15/2025 [facility] - Occupational Stress Questionnaire Answer Date [...] drink first t luisa in the morning (EYE-CARPET SEWER) to steady your nerves or to get rid of a hangover? 0 06/14/2025 CAGE Questionnaire Score 0 025 Utilities Answer Date Recorded In the past 12 months has th e [employer], gas, oil, or water [employer] threatened to shut off services in your [...] things Not at all 07/11/2025 9:24 AM NURYST Audie Atkinson Feeling down, depressed, or hopeless Not at all 07/11/2025 9:24 AM EDT Audie Atkinson Patient Health Questionnaire -2 Score 0 07/11/2025 9:24 AM EDT Audie Atkinson * Calculated C-SSRS [...] as of this encounter Miscellaneous Notes * Addendum Note - Suraj Bosch, PharmD - 07/27/2025 9:07 AM EDTAddended by: SURAJ BOSCH on: 07/27/2025 09:07 AM Modules accepted: Orders documented in this encounter Plan of Treatment Upcoming Encounters Date Type Department Care Team (Late st Contact Info) Description 09/12/2025 8:30 AM EDT Clinical Support [facility] Transplant Center [address] [place] [address] 09/12/2025 10:00 AM EDT Office Visit [facility] Transplant Center [address] [place] [address] Portia Maguire MD [address] [place] [address] 10/03/2025 12:45 PM EST Office Visit Medical Office Building Urology [address] [facility], [address] [place] [address] Suhail Brock MD [address] [place] [address] 10/18/2025 4:20 PM EST Office Visit [facility]eral Met[facility] [address] [facility], [address] [place] [address] Moustapha Katz MD [address] [facility] [address] [place] [address] documented as of this encounter Visit Diagnoses [...] documented as of this encounter Care Teams Tortilla Maker Relationship Specialty Start Date End Date Chris Medel MD [address] [place] [address] PCP - General 03/14/25 Ruma Hernández APRN [address] [facility] [address] [place] [address] Referring Physician Gastroenterology 07/30/23 documented as of this encounter
--- OUTSIDE RECORDS SUMMARY | 2025-08-01 07:14 | XMS_ITS | Encounter Summary ---
Author Organization [facility] Address [address] [place] [address] Care Team Providers Care Career Discovery Teacher Name Role Phone Unavailable Primary Care Provider Unavailabl e Source Comments This information has been disclosed to you from confidential records protectfrom disclosure by state law. You shall make no further disclosure of thisinformation without the specific, written, and informed release of theindividual to whom it pertains, or as otherwise permitted by law. A generalauthorization for the release of medical or other information is not sufficientfor the purposes of the release of HIV test results or diagnoses. [id number] Encounter Details Date Type Department Care Team (Late st Contact Info) Description 07/31/2025 Telephone [facility] Liver Transplant at [address] [address] Chapito Alcantar RN Social History Tobacco Use Types Packs/Day Years Used Date Smoking Tobacco: Never Assessed Sex and Gender Information Value Date Recorded Sex Assigned at Not on file Legal Sex Male 3:33 PM EDT Gender Identity Not on file Sexual Orientation Not on file documented as of this encounter Progress Notes * Chapito Alcantar RN - 07/31/2025 3:37 PM EDT Spoke with patient's spouse. Patient has been listed at [facility] for over a year and is inquiring about duel listing. Explained process of duel listing and obtained demographics. Spouse to send insurance card via e mail address. Once obtained, will proceed with transplant referral. Direct office number and e mail address provided. documented in this encounter Plan of Treatment Not on file documented as of this encounter Visit Diagnoses Not on filedocumented in this encounter
--- OUTSIDE RECORDS SUMMARY | 2025-08-01 07:14 | XMS_ITS | Encounter Summary ---
Author Organization Healthcare Address [address] [place] [address] Care Team Providers Care Entertainment Dancer Name Role Phone Ruma Hernández SPORTS INFORMATION DIRECTOR Unavailable [phone] Chris Medel MD Primary Care Provider [phone] Encounter Details Date Type Department Care Team (Late st Contact Info) Description 07/19/2025 Results Follow-Up [facility] [address] [place] [address] Meaghan Le, RN [facility] LIVER [id number] [address] [place] [address] Social History Tobacco Use Types [...] and heating? Not hard at all 06/15/2025 [facility] of Occupat ional [facility] - Occupational Stress Questionnaire [...] time in the past 12 m [facility], were you homeless or living [...] drink first t luisa in the morning (EYE-HOUSEKEEPER CHILD CARE) to steady your nerves or to get [...] Encounter Note - Meaghan Le RN - 07/19/2025 11:57 AM EDT MELD labs documented in this encounter Plan of Treatment Upcoming Encounters Date Type Department Care Team ([facility] Contact Info) Description 09/12/2025 8:30 AM EDT Clinical Support [facility] [address] [place] [address] 09/12/2025 10:00 AM EDT Office Visit [facility] [address] [place] [address] Portia Maguire MD [address] [place] [address] 10/03/2025 12:45 PM EST Office Visit Medical Office Building Urology [address] [facility], [address] [place] [address] Suhail Brock MD [address] [facility] [address] [place] [address] 10/18/2025 4:20 PM EST Office Visit Professional [facility] [address] [facility], [address] [place] [address] Moustapha Katz MD [address] [facility] [address] [place] [address] documented as of this encounter [...] documented as of this encounter Care Teams Entertainment Dancer Relationship Specialty Start Date End Date Chris Medel MD [address] [place] [address] PCP - General 03/14/25 Ruma Hernández APRN [address] [facility] [address] [place] [address] Referring Physician Gastroenterology 07/30/23 documented as of this encounter
--- OUTSIDE RECORDS SUMMARY | 2025-08-01 07:14 | XMS_ITS | Encounter Summary ---
Author Organization Healthcare Address [address] [place] [address] Care Team Providers Care Relay Shop Supervisor Name Role Phone Ruma Hernández STEAM TABLE ASSOCIATE Unavailable [phone] Chris Medel MD Primary Care Provider [phone] Encounter Details Date Type Department Care Team (Late st Contact Info) Description 06/14/2025 Results Follow-Up [facility] [address] [place] [address] Meaghan Le, RN [facility] LIVER [id number] [address] [place] [address] Social History Tobacco Use Types [...] week 02/19/2025 How often do you attend [facility] or gnosticism services? More than 4 times [...] and heating? Not hard at all 06/15/2025 [facility] of Occupat ional [facility] [...] drink first t luisa in the morning (EYE-AVIONICS ELECTRICAL ENGINEER) to steady your nerves or to get rid of a hangover? 0 06/14/2025 CAGE Questionnaire Score 0 025 Utilities Answer Date Recorded In the past 12 months has [employer], gas, oil, or water [employer] threatened to shut off services in your [...] [facility] [address] [place] [address] 09/12/2025 10:00 AM EDT Office Visit [facility] [address] [place] [address] Portia Maguire MD [address] [place] [address] 10/03/2025 12:45 PM EST Office Visit Medical Office Building Urology [address] [facility], [address] [place] [address] Suhail Brock MD [address] [place] [address] 10/18/2025 4:20 PM EST Office Visit [facility] [address] [facility], [address] [place] [address] Moustapha Katz MD [address] [facility] [address] [place] [address] documented as of this encounter [...] documented as of this encounter Care Teams Relay Shop Supervisor Relationship Specialty Start Date End Date Chris Medel MD [address] [place] [address] PCP - General 03/14/25 Ruma Hernández APRN [address] [place] [address] Referring Physician Gastroenterology 07/30/23 documented as of this encounter
--- OUTSIDE RECORDS SUMMARY | 2025-08-01 07:14 | XMS_ITS | Encounter Summary ---
Author Organization Healthcare Address [address] [place] [address] Care Team Providers Care Project Development Coordinator Name Role Phone Ruma Hernández RAPID EXTRACTOR OPERATOR Unavailable [phone] Chris Medel MD Primary Care Provider [phone] Encounter Details Date Type Department Care Team (Late st Contact Info) Description 05/01/2025 Results Follow-Up [facility] [address] [place] [address] Meaghan Le, RN [facility] LIVER [id number] [address] [place] [address] Social History Tobacco Use Types [...] 02/19/2025 How often do you attend [facility] or episcopalian services? More than 4 times per year 02/19/2025 Do you belong to any clubs o r organizations such as yazidism groups, unions, [employer] or athletic groups, or school groups? Yes [...] How often do you attend chur or episcopalian services? More than 4 times per year [...] and heating? Not hard at all 06/15/2025 [facility] of Occupat ional Health - Occupational [...] any time in the past 12 m [facility], were you homeless or living in [...] drink first t luisa in the morning (EYE-COMMERCIAL TRAILER TRUCK DRIVER) to steady your nerves or to get rid of a hangover? 0 06/14/2025 CAGE Questionnaire Score 0 025 Utilities Answer Date Recorded In the past 12 months has th e [employer], gas, oil, or water company threatened to [...] 09/12/2025 8:30 AM EDT Clinical Support [facility] [address] [place] [address] 09/12/2025 10:00 AM EDT Office Visit [facility] [address] [place] [address] Portia Maguire MD [address] [place] [address] 10/03/2025 12:45 PM EST Office Visit Medical Office Building Urology [address] [facility], [address] [place] [address] Suhail Brock MD [address] [place] [address] 10/18/2025 4:20 PM EST Office Visit Professional [email or web address] [address] , [address] [place] [address] Moustapha Katz MD [address] [place] [address] documented as of this encounter [...] documented as of this encounter Care Teams Project Development Coordinator Relationship Specialty Start Date End Date Chris Medel MD [address] [place] [address] PCP - General 03/14/25 Ruma Hernández APRN [address] [place] [address] Referring Physician Gastroenterology 07/30/23 documented as of this encounter
--- OUTSIDE RECORDS SUMMARY | 2025-08-01 07:14 | XMS_ITS | Encounter Summary ---
Author Organization Healthcare Address [address] [place] [address] Care Team Providers Care Tar Chaser Name Role Phone Ruma Hernández BLENDER/BRAZE APPLICATOR Unavailable [phone] Chris Medel MD Primary Care Provider [phone] Encounter Details Date Type Department Care Team (Late st Contact Info) Description 06/14/2025 Results Follow-Up [facility] [address] [place] [address] Meaghan Le, RN [facility] LIVER [id number] [address] [place] [address] Social History Tobacco Use Types [...] you attend [facility] or alevism services? More than 4 times [...] How often do you attend chur or alevism services? More than 4 times [...] and heating? Not hard at all 06/15/2025 [facility] of Occupat ional [facility] - Occupational Stress Questionnaire Answer [...] first t luisa in the morning (EYE-COMMUNITY COORDINATOR) to steady your nerves or to get rid of a hangover? 0 06/14/2025 CAGE Questionnaire Score 0 025 Utilities Answer Date Recorded In the past 12 months has [employer], gas, oil, or water [employer] threatened to shut off services in your [...] Upcoming Encounters Date Type Department Care Team ([facility] st Contact Info) Description 09/12/2025 8:30 AM EDT Clinical Support [facility] [place] [address] [facility] [address] [place] [address] 09/12/2025 10:00 AM EDT Office Visit [facility] [place] [address] [facility] [address] [place] [address] Portia Maguire MD [address] [facility] [address] [place] [address] 10/03/2025 12:45 PM EST Office Visit Medical Office Building Urology [address] [facility], [address] [place] [address] Suhail Brock MD [address] [facility] [address] [place] [address] 10/18/2025 4:20 PM EST Office Visit Professional [employer] [place] [facility] [address] [facility], [address] [place] [address] Moustapha Katz MD [address] [facility] [address] [place] [address] documented as of this encounter [...] documented as of this encounter Care Teams Tar Chaser Relationship Specialty Start Date End Date Chris Medel MD [address] [place] [address] PCP - General 03/14/25 Ruma Hernández APRN [address] [place] [address] Referring Physician Gastroenterology 07/30/23 documented as of this encounter
--- OUTSIDE RECORDS SUMMARY | 2025-08-01 07:14 | XMS_ITS | Encounter Summary ---
[facility] Address [address] [place] [address] Care Team Providers Care Wine Steward Name Role Phone KaronUrban Hosea CAMARA Primary Care Provider [phone] Encounter Details Date Type Department Care Team (Late st Contact Info) Description 10/14/2023 Telephone [facility] GASTRO[facility]Y [address] [facility] [address] [place] [address] Ruma Hernández, WOOD DIE MAKER [address] [facility] [address] [place], [place] [id number] Social History Tobacco Use Types Packs/Day Years [...] on filedocumented in this encounter Care Teams Wine Steward Relationship Specialty Start Date End Date Urban Brantley DO [address] [place] [address] PCP - General Internal Medicine 03/22/23 documented as of this encounter
--- OUTSIDE RECORDS SUMMARY | 2025-08-01 07:14 | XMS_ITS | Encounter Summary ---
Author Organization Healthcare Address [address] [place] [address] Care Team Providers Care Civil Estimator Name Role Phone Ruma Hernández SENIOR MARKETING MANAGER Unavailable [phone] Chris Medel MD Primary Care Provider [phone] Encounter Details Date Type Department Care Team [...] often do you attend chur ch or faith services? More than 4 times [...] How often do you attend [facility] or faith services? More than 4 [...] heating? Not hard at all 06/15/2025 [facility] [place] of Occupat ional Health - Occupational Stress [...] time in the past 12 m [facility], were you homeless or living in a [...] drink first t luisa in the morning (EYE-EXTRUDER TENDER) to steady your nerves or to [...] Upcoming Encounters Date Type Department Care Team ([facility] Contact Info) Description 09/12/2025 8:30 AM EDT Clinical Support [facility] [address] [place] [address] 09/12/2025 10:00 AM EDT Office Visit [facility] Transplant [place] [address] [place] [address] Portia Maguire MD [address] [place] [address] 10/03/2025 12:45 PM EST Office Visit Medical Office Building Urology [address] [facility], [address] [place] [address] Suhail Brock MD [address] [place] [address] 10/18/2025 4:20 PM EST Office Visit Professional [facility] [place] [facility] [address] [facility], [address] [place] [address] Moustapha Katz MD [address] [facility] [address] [place] [address] documented as of this encounter [...] documented as of this encounter Care Teams Civil Estimator Relationship Specialty Start Date End Date Chris Medel MD [address] [place] [address] PCP - General 03/14/25 Ruma Hernández APRN [facility] [place], [place] [address] Referring Physician Gastroenterology 07/30/23 documented as of this encounter
--- OUTSIDE RECORDS SUMMARY | 2025-08-01 07:14 | XMS_ITS | Clinical Summary ---
Author Organization [address] [address] Care Team Providers Care Blacksmith Apprentice Name Role Phone Unavailable Primary Care Provider Unavailabl e Source Comments This information has been disclosed to you from confidential records protectedfrom disclosure by state law. You shall make no further disclosure of thisinformation without the specific, written, and informed release of theindividual to whom it pertains, or as otherwise permitted by law. A generalauthorization for the release of medical or other information is not sufficientfor the purposes of therelease of HIV test results or diagnoses. [id number] Health Encounters Date Type Department Care Team Description 07/31/2025 Telephone [facility] Liver Transplant at [address] [address] Chapito Alcantar RN from Last 3 Months Social History Tobacco Use Types Packs/Day Years Used Date Smoking Tobacco: Never Assessed Sex and Gender Information Value Date Recorded Sex Assigned at Not on file Legal Sex Male 3:33 PM EDT Gender Identity Not on file Sexual Orientation Not on file Plan of Treatment Not on file
--- OUTSIDE RECORDS SUMMARY | 2025-08-01 07:14 | XMS_ITS | Encounter Summary ---
Author Organization Healthcare Address [address] [place] [address] Care Team Providers Care Signal Timer Name Role Phone Ruma Hernández METEOROLOGICAL ENGINEER Unavailable [phone] Chris Medel MD Primary Care Provider [phone] Encounter Details Date Type Department Care Team [...] often do you attend chur ch or denominational services? More than 4 times per year [...] Recorded Patient Health Questionnaire-2 Score 0 06/08/2025 [facility] - Occupational Stress Questionnaire Answer [...] in the past [address] [facility], were you homeless or living [...] drink first t luisa in the morning (EYE-BUSINESS ADMINISTRATION PROFESSOR) to steady your nerves or to [...] Description 09/12/2025 8:30 AM EDT Clinical Support [facility] [place] [address] [facility] [address] [place] [address] 09/12/2025 10:00 AM EDT Office Visit [facility] [place] [address] [facility] [address] [place] [address] Portia Maguire MD [address] [facility] [address] [place] [address] 10/03/2025 12:45 PM EST Office Visit Medical Office Building Urology [address] [facility], [address] [place] [address] Suhail Brock MD [address] [facility] [address] [place] [address] 10/18/2025 4:20 PM EST Office Visit Professional [facility] [address] [facility], [address] [place] [address] Moustapha Katz MD [address] [place] [address] documented as of this encounter [...] documented as of this encounter Care Teams Signal Timer Relationship Specialty Start Date End Date Chris Medel MD [address] [place] [address] PCP - General 03/14/25 Ruma Hernández APRN [address] [place] [address] Referring Physician Gastroenterology 07/30/23 documented as of this encounter
--- OUTSIDE RECORDS SUMMARY | 2025-08-01 07:14 | XMS_ITS | Encounter Summary ---
Author Organization [facility] Address [address] [place] [address] Care Team Providers Care Student Affairs Dean Name Role Phone KaronUrban Hosea CAMARA Primary Care Provider [phone] Encounter Details Date Type Department Care Team (Late st Contact Info) Description 10/14/2023 Telephone [facility] GASTROENTEROLOGY [address] [facility] 202 [place] [address] Ruma Hernández, TRACING LATHE SET UP OPERATOR [address] [facility] 202 [place], [place] [address] Social History Tobacco Use Types Packs/Day Years [...] on filedocumented in this encounter Care Teams Student Affairs Dean Relationship Specialty Start Date End Date Urban Brantley DO [address] [place] [address] PCP - General Internal Medicine 03/22/23 documented as of this encounter
--- OUTSIDE RECORDS SUMMARY | 2025-08-01 07:14 | XMS_ITS | Clinical Summary ---
Author Organization [facility] Address [address] [place] [address] Care Team Providers Care Recreation Programmer Name Role Phone Ruma Hernández JAVA PROGRAMMER Unavailable [phone] Chris Medel MD Primary Care Provider [phone] Allergies Active Allergy Reactions Criticality Noted Date Comments Lisinopril Cough Low 09/15/2021 Medications carvedilol (Coreg) 3.125 MG tabletIndicatio ns:Cirrhosis of liver with ascites, unspecified hepatic cirrhosis type (CMS/HCC) Take 1 tablet (3.125 mg) by mouth 2 (two) times a day with meals. 60 tablet 11 09/13/20 24 025 Active Additional Information Patient not taking.Reported on 07/11/2025 Xifaxan 550 MG tablet Take 1 tablet by mouth 2 times a day. 01/16/20 25 Active ergocalciferol (Vitamin D-2) 1.25 MG (32182 UT) capsule Take 1 capsule by mouth 1 (one) time per week. 12 capsule 2 03/08/20 25 Active Calcium-Vitamin D (CALTRATE 600 PLUS-VIT D PO) Take 600 mg by mouth 2 times a day. Active furosemide (Lasix) 20 MG tabletIndicatio ns:Bilateral leg edema,Cirrhosis of liver with ascites, unspecified hepatic cirrhosis type (CMS/HCC),Other ascites Take 2 tablets by mouth daily. 180 tablet 3 03/14/20 25 026 Active omeprazole (PriLOSEC) [address] capsuleIndicati ons:Cirrhosis of liver with ascites, unspecified hepatic cirrhosis type (CMS/HCC) Take 2 capsules by mouth daily. 180 capsule 3 03/14/20 25 026 Active spironolactone (Aldactone) 50 MG tabletIndicatio ns:Bilateral leg edema,Cirrhosis of liver with ascites, unspecified hepatic cirrhosis type (CMS/HCC),Other ascites Take 3 tablets by mouth daily. 270 each 1 06/25/20 25 026 Active calcitriol (Rocaltrol) 0.25 MCG capsule Take 1 capsule by mouth daily. Take 1 capsule daily only on 5 days in the week ( Wednesday to Wednesday only) 24 capsule 5 06/10/20 25 025 Discontinued Active Problems Problem Noted Date Diagnosed Date [...] Encounters Date Type Department Care Team Description 07/19/2025 Results Follow-Up [facility] [place] [address] [address] Meaghan Le RN 07/11/2025 10:30 AM EDT Office Visit [facility] [place] [address] [address] Portia Maguire MD Cirrhosis of liver with ascites, unspecified hepatic cirrhosis type (CMS/HCC) (Primary Dx); Other ascites; Pre-liver transplant, listed; Alcoholic cirrhosis, unspecified whether ascites present (CMS/HCC); Hemochromatosis associated with compound heterozygous mutation in HFE gene; Alcohol use disorder, moderate, in sustained remission 07/11/2025 9:30 AM EDT Social Work [facility] [address] [place] [address] Liliane Jacobs LCSW 07/11/2025 Travel 07/05/2025 Results Follow-Up [facility] [address] [facility] [place] [address] Meaghan Le, RN 06/29/2025 Results Follow-Up [facility] [place] [id number] [facility] [place] [phone] Meaghan Le, RN 06/25/2025 Telephone [facility] [place] [address] [facility] [place] [address] Meaghan Le, RN 06/21/2025 Results Follow-Up [facility] [place] [address] [facility] [place] [address] Meaghan Le, RN 06/20/2025 Telephone [facility] [place] [id number] [place] [address] Meaghan Le, RN 06/15/2025 11:59 PM EDT Anesthesia Event [facility] [address] [place] [address] Mary Castellon, Fanta Vizcarra, JAVA PROGRAMMER 06/14/2025 3:47 PM EDT - 06/15/2025 6:14 PM EDT Hospital Encounter [facility] Inpatient [address] [place] [address] Luis Angel Bee MD Alcoholic cirrhosis, unspecified whether ascites present (CMS/HCC) (Primary Dx) Discharge Disposition: Home or Self Care 06/14/2025 Travel 06/14/2025 Results Follow-Up [facility] [place] [address] [facility] [place] [address] Meaghan Le, RN 06/14/2025 Results Follow-Up [facility] [address] [place] [address] Meaghan Le RN 06/13/2025 12:57 PM EDT - 06/13/2025 11:59 PM EDT Hospital Encounter [facility] Radiology [address] [place] [address] Chris Knott RN Pre-liver transplant, listed Discharge Disposition: Home or Self Care 06/13/2025 10:36 AM EDT - 06/13/2025 12:56 PM EDT Hospital Encounter Cardiac Imaging [address] [place] [address] Pre-liver transplant, listed Discharge Disposition: Home or Self Care 06/13/2025 9:56 AM EDT - 06/13/2025 10:35 AM EDT Hospital Encounter [facility] [address] [place] [address] Alcoholic cirrhosis, unspecified whether ascites present (CMS/HCC) Discharge Disposition: Home or Self Care 06/13/2025 8:00 AM EDT Office Visit [facility] [address] [facility] [address] [place] [phone] Portia Maguire MD Alcoholic cirrhosis, unspecified whether [...] - 06/13/2025 9:55 AM EDT Hospital Encounter [facility] [address] [place] [address] Pre-liver transplant, listed Discharge Disposition: Home or Self Care 06/13/2025 Telephone [facility] [address] [place] [address] Zeferino Trejo, PharmD 06/13/2025 Travel 06/08/2025 12:20 PM EDT Office Visit [facility] [place] [facility] [address], [address] [place] [address] Moustapha Katz MD Age-related osteoporosis without current pathological fracture (Primary Dx) 06/08/2025 8:35 AM EDT - 06/08/2025 11:59 PM EDT Hospital Encounter [facility] [place] [facility] [address], [address] [place] [address] Other osteoporosis without current pathological fracture Discharge Disposition: Home or Self Care 06/08/2025 Travel 06/07/2025 Telephone [facility] [place] [facility] [address], [address] [place] [address] Mary Chatman LPN 06/06/2025 Telephone [facility] [address] [place] [address] Mell Masterson RN 06/05/2025 Travel 06/05/2025 Results Follow-Up [facility] [address] [address] Meaghan Le, RN 05/22/2025 Telephone [facility] [address] [address] Meaghan Le, RN 05/01/2025 Results Follow-Up [facility] [address] [address] Meaghan Le, RN from Last 3 Months [...] you attend [facility] or yarsanism services? More than 4 times per year 02/19/2025 Do you belong to any clubs o r organizations such as faith groups, unions, [employer] or athletic groups, or school groups? Yes [...] week 06/15/2025 How often do you attend [facility] or yarsanism services? More than 4 times per year 06/15/2025 Do you belong to any clubs o r organizations such as faith groups, unions, fraternal or athletic groups, or [...] and heating? Not hard at all 06/15/2025 [facility] - Occupational Stress Questionnaire Answer Date [...] drink first t luisa in the morning (EYE-FRUIT [employer]VESTER) to steady your nerves or to get rid of a hangover? 0 06/14/2025 CAGE Questionnaire Score 0 025 Utilities Answer Date Recorded In the past 12 months has th [employer], gas, oil, or water [employer] threatened to shut off services in your [...] Clinical Support [facility] [address] [place] [phone] 09/12/2025 10:00 AM EDT Office Visit [facility] [address] [facility] [address] [place] [address] Portia Maguire MD [address] [facility] [address] [place] [phone] 10/03/2025 12:45 PM EST Office Visit Medical Office Building Urology [address], [address] [place] [address] Suhail Brock MD [address] [facility] [address] [place] [address] 10/18/2025 4:20 PM EST Office Visit [facility] [address], [address] [place] [address] Moustapha Katz MD [address] [place] [address] Health Maintenance Due Date Last [...] - Risk 60-74 years 1-dose series) 2021 [id number] Vaccine (1 - season) 2025 UKY-Influenza Vaccine [...] Diagnosis Comments COMPREHENSIVE METABOLIC PANEL, PLASMA Routine 07/18/2025 CBC W/O DIFFERENTIAL Routine 07/18/2025 PROTHROMBIN TIME(PT) / INR Routine 07/18/2025 PAIN MANAGEMENT, QUANTITATIVE URINE DRUG TESTING Routine [...] 06/04/2025 PROTHROMBIN TIME(PT) / INR Routine 06/04/2025 from Last 3 Months Results * Prothrombin Time/INR (07/18/2025) Only the most recent of8 resultswithin the time period is included. External Prothrombin Time (PT) 17.0 External INR - Internormal Ratio 1.58 Blood Venous blood specimen / Unknown 07/18/2025 us Historical Provider LAB BLOOD ORDERABLES Final R esult * CBC W/O Differential (07/18/2025) Only the most recent of7 resultswithin the time period is included. External WBC 6.4 External Red Blood Cell (RBC) 3.20 External Hemoglobin (Hgb) 10.90 External Hematocrit (Hct) 32.9 External Platelet Count (Plt) 80 Blood Venous blood specimen / Unknown 07/18/2025 [facility] Provider LAB BLOOD ORDERABLES Final R esult * Comprehensive Metabolic Panel, Plasma (07/18/2025) Only the most recent of8 resultswithin the time period is included. External Glucose 80 External BUN 12 External Creatinine Blood 0.80 mg/dL External Sodium (Na) 138 mEq/L External Potassium (K) 4.1 External Chloride (Cl) 109 External Carbon Dioxide (CO2) 28 External Anion Gap (AG) 5.1 External Calcium (Ca) 7.7 External Total Protein 6.6 External Albumin 2.2 g/dL External AST (SGOT) 58 External ALT (SGPT) 42 External Alkaline Phosphatase 174 External Bilirubin Total 3.5 mg/dL External Estimated GFR 97 External EGFR (If AFR/AM) 118 Blood Venous blood specimen / Unknown 07/18/2025 [facility] Provider LAB BLOOD ORDERABLES Final R esult * Pain Management, Quantitative Urine Drug Testing (07/11/2025 8:27 AM EDT) Only the most recent of2 resultswithin the time period is included. Alpha [place] Alprazolam <20 <20 ng/mL 07/12 1:45 PM EDT [facility] Alpha [place] Midazolam <20 <20 ng/mL 2024 1:45 PM EDT [facility] Alpha [place] Triazolam <20 <20 ng/mL 2024 1:45 PM EDT [facility] Alprazolam <10 <10 ng/mL 07/12/2025 1:45 PM EDT [facility] Aminoclonazepam <20 <20 ng/mL 1:45 PM EDT [facility] Amphetamine <50 <50 ng/mL 07/12/2025 1:45 PM EDT [facility] Benzoylecgonine <50 <50 ng/mL 1:45 PM EDT [facility] Buprenorphine <10 <10 ng/mL 07/12/2025 1:45 PM EDT [facility] Buprenorphine Glucuronide <50 <50 ng/mL 07/12/2025 1:45 PM EDT [facility] Butalbital <50 <50 ng/mL 07/12/2025 1:45 PM EDT [facility] 9 Carboxy THC <10 <10 ng/mL 07/12/2025 1:45 PM EDT [facility] 9 Carboxy THC Glucuronide <25 <25 ng/mL 07/12/2025 1:45 PM EDT [facility] Clonazepam <10 <10 ng/mL 07/12/2025 1:45 PM EDT [facility] Codeine <50 <50 ng/mL 07/12/2025 1:45 PM EDT [facility] Codeine Glucuronide <50 <50 ng/mL 07/12 1:45 PM EDT [facility] Cyclobenzaprine <50 <50 ng/mL 1:45 PM EDT [facility] Desmethyl Tramadol <50 <50 ng/mL 2024 1:45 PM EDT [facility] Diazepam <10 <10 ng/mL 07/12/2025 1:45 PM EDT [facility] EDDP - Methadone Metabolite <50 <50 ng/mL 07/12/2025 1:45 PM EDT [facility] Fentanyl <1 <1 ng/mL 07/12/2025 1:45 PM EDT [facility] Hydrocodone <50 <50 ng/mL 07/12/2025 1:45 PM EDT [facility] Hydromorphone <50 <50 ng/mL 07/12/2025 1:45 PM EDT [facility] Hydromorphone Glucuronide <50 <50 ng/mL 07/12/2025 1:45 PM EDT [facility] Lorazepam <20 <20 ng/mL 07/12/2025 1:45 PM EDT [facility] Lorazepam Glucuronide <50 <50 ng/mL 07/12/2025 1:45 PM EDT [facility] MDA <50 <50 ng/mL 07/12/2025 1:45 PM EDT [facility] MDMA <50 <50 ng/mL 07/12/2025 1:45 PM EDT [facility] Meperidine <50 <50 ng/mL 07/12/2025 1:45 PM EDT [facility] Methadone <50 <50 ng/mL 07/12/2025 1:45 PM EDT [facility] Methamphetamine <50 <50 ng/mL 1:45 PM EDT [facility] Methylphenidate <50 <50 ng/mL 1:45 PM EDT [facility] 6 Monoacetyl morphine <10 <10 ng/mL 07/12/2025 1:45 PM EDT [facility] Morphine <50 <50 ng/mL 07/12/2025 1:45 PM EDT [facility] Morphine Glucuronide <50 <50 ng/mL 06/16 1:45 PM EDT [facility] Naloxone <50 <50 ng/mL 07/12/2025 1:45 PM EDT [facility] Naloxone Glucuronide <50 <50 ng/mL 06/16 1:45 PM EDT [facility] Norbuprenorphine <10 <10 ng/mL 07/12/20 1:45 PM EDT [facility] Norbuprenorphine Glucuronide <50 <50 ng/mL 07/12/2025 1:45 PM EDT [facility] Nordiazepam <20 <20 ng/mL 07/12/2025 1:45 PM EDT [facility] Norfentanyl <2 <2 ng/mL 07/12/2025 1:45 PM EDT [facility] Normeperidine <50 <50 ng/mL 07/12/2025 1:45 PM EDT [facility] PCP Quant, Ur <50 <50 ng/mL 07/12/2025 1:45 PM EDT [facility] Phenobarbital <50 <50 ng/mL 07/12/2025 1:45 PM EDT [facility] Oxazepam <20 <20 ng/mL 07/12/2025 1:45 PM EDT [facility] Oxazepam Glucuronide <50 <50 ng/mL 06/16 1:45 PM EDT [facility] Oxycodone <50 <50 ng/mL 07/12/2025 1:45 PM EDT [facility] Oxymorphone <50 <50 ng/mL 07/12/2025 1:45 PM EDT [facility] Oxymorphone Glucuronide <50 <50 ng/mL 07/12/2025 1:45 PM EDT [facility] Secobarbital <50 <50 ng/mL 07/12/2025 1:45 PM EDT [facility] Tramadol <50 <50 ng/mL 07/12/2025 1:45 PM EDT [facility] Temazepam <20 <20 ng/mL 07/12/2025 1:45 PM EDT [facility] Temazepam Glucuronide <50 <50 ng/mL 07/12/2025 1:45 PM EDT [facility] Urine Urine specimen obtained by clean catch procedure / Unknown Non-blood Collection / Unknown 07/11/2025 8:27 AM EDT 07/11/2025 9:07 AM EDT Narrative [facility] - 07/12/2025 1:45 PM EDT [...] laboratory. Test performed by LC-MS/MS at the [facility]. This test was developed and its performance characteristics determined by [facility]. It has not been cleared or approved by the FDA. The laboratory is regulated under CLIA as qualified to perform high-complexity testing. This test is used for clinical purposes. Portia Maguire MD LAB URINE ORDERABLES Nadia l Result Performing Organization Address [facility] Co de Phone Number [facility] [address] [place] [address] * Nicotine Cotinine Metabolite (07/11/2025 8:27 AM EDT) Only the most recent of2 resultswithin the time period is included. NICOTINE <5 <5 ng/mL 07/12/2025 3:1 7 PM EDT [facility] Cotinine <5 <5 ng/mL 07/12/2025 3:1 7 PM EDT [facility] Blood Venous blood specimen / Unknown Venipuncture / Unknown 07/11/2025 8:27 AM EDT 07/11/2025 8:44 AM EDT Narrative [facility] - 07/12/2025 3:17 PM EDT Testing performed by LC-MS/MS at the [facility] Special Chemistry/Toxicology Laboratory. This test was developed and its performance characteristics determined by [facility]. This assay has not been cleared by the FDA. The laboratory is regulated under CLIA as qualified to perform high-complexity testing. This test is used for clinical purposes. Portia Maguire MD LAB BLOOD ORDERABLES Nadia l Result Performing Organization Address [facility] de Phone Number [facility] [address] [place] [address] * Alcohol Urine (07/11/2025 8:27 AM EDT) Only the most recent of2 resultswithin the time period is included. Alcohol Urine Negative Negative 07/11/2025 1:32 PM EDT [facility] Urine Urine specimen obtained by clean catch procedure / Unknown Non-blood Collection / Unknown 07/11/2025 8:27 AM EDT 07/11/2025 9:03 AM EDT Narrative [facility] - 07/11/2025 1:32 PM EDT The correlation between urine and serum ethanol concentration is highly variable. Test performed by Gas Chromatography at the [facility]. This test was developed and its performance characteristics determined by [facility]. It has not been cleared or approved by the FDA.The laboratory is regulated under CLIA as qualified to perform high-complexity testing. This test is used for clinical purposes only. us Portia Maguire MD LAB URINE ORDERABLES Nadia crockett Result [facility] [address] [place] [address] * (ABNORMAL) Comprehensive Urine Drug Screening, Qualitative Assay, >= 27 Drug Classes (58:27 AM EDT) Only the most recent of2 resultswithin the time period is included. Acetaminophen Positive(A) Negative 07/13/2025 1:39 AM EDT [facility] Alprazolam Negative Negative 07/13/2025 1:39 AM EDT [facility] Amantadine Negative Negative 07/13/2025 1:39 AM EDT [facility] Amitriptyline Negative Negative 07/13/2025 1:39 AM EDT [facility] Amphetamine Negative Negative 07/13/2025 1:39 AM EDT [facility] Atenolol Negative Negative 07/13/2025 1:39 AM EDT [facility] Benzoylecgonine Negative Negative 1:39 AM EDT [facility] Bisoprolol Negative Negative 07/13/2025 1:39 AM EDT [facility] Bupropion Negative Negative 07/13/2025 1:39 AM EDT [facility] Butalbital Negative Negative 07/13/2025 1:39 AM EDT [facility] Carbamazepine Negative Negative 07/13/2025 1:39 AM EDT [facility] Carisoprodol Negative Negative 07/13/2025 1:39 AM EDT [facility] Chlorpheniramine Negative Negative 07/13/20 1:39 AM EDT [facility] Citalopram Negative Negative 07/13/2025 1:39 AM EDT [facility] Clindamycin Negative Negative 07/13/2025 1:39 AM EDT [facility] Clonidine Negative Negative 07/13/2025 1:39 AM EDT [facility] Clopidogrel / Ticlopidine Negative Negative 07/13/2025 1:39 AM EDT [facility] Cocaethylene Negative Negative 07/13/2025 1:39 AM EDT [facility] Cocaine Negative Negative 07/13/2025 1:39 AM EDT [facility] Codeine Negative Negative 07/13/2025 1:39 AM EDT [facility] Cyclobenzaprine Negative Negative 1:39 AM EDT [facility] Desvenlafaxine Negative Negative 07/13/2025 1:39 AM EDT [facility] Dextromethorphan Negative Negative 07/13/20 1:39 AM EDT [facility] Diazepam Negative Negative 07/13/2025 1:39 AM EDT [facility] Diltiazem Negative Negative 07/13/2025 1:39 AM EDT [facility] Diphenhydramine Negative Negative 1:39 AM EDT [facility] Doxepine Negative Negative 07/13/2025 1:39 AM EDT [facility] Doxylamine Negative Negative 07/13/2025 1:39 AM EDT [facility] EDDP-Methadone metabolite Negative Negative 07/13/2025 1:39 AM EDT [facility] Fentanyl Negative Negative 07/13/2025 1:39 AM EDT [facility] Fluconazole Negative Negative 07/13/2025 1:39 AM EDT [facility] Fluoxetine Negative Negative 07/13/2025 1:39 AM EDT [facility] Guaifenesin Negative Negative 07/13/2025 1:39 AM EDT [facility] Haloperidol Negative Negative 07/13/2025 1:39 AM EDT [facility] Heroin/6-MARY Negative Negative 07/13/2025 1:39 AM EDT [facility] Hydrocodone Negative Negative 07/13/2025 1:39 AM EDT [facility] Hydroxyzine / Cetirizine metabolite Negative Negative 07/13/2025 1:39 AM EDT [facility] Ibuprofen Negative Negative 07/13/2025 1:39 AM EDT [facility] Imipramine Negative Negative 07/13/2025 1:39 AM EDT [facility] Ketamine Negative Negative 07/13/2025 1:39 AM EDT [facility] Labetolol Negative Negative 07/13/2025 1:39 AM EDT [facility] Lamotrigine Negative Negative 07/13/2025 1:39 AM EDT [facility] Levetiracetam Negative Negative 07/13/2025 1:39 AM EDT [facility] Lidocaine Negative Negative 07/13/2025 1:39 AM EDT [facility] MDA Negative Negative 07/13/2025 1:39 AM EDT [facility] MDMA Negative Negative 07/13/2025 1:39 AM EDT [facility] Memantine Negative Negative 07/13/2025 1:39 AM EDT [facility] Meperidine Negative Negative 07/13/2025 1:39 AM EDT [facility] Meprobamate Negative Negative 07/13/2025 1:39 AM EDT [facility] Metaxalone Negative Negative 07/13/2025 1:39 AM EDT [facility] Methamphetamine Negative Negative 1:39 AM EDT [facility] Methocarbamol Negative Negative 07/13/2025 1:39 AM EDT [facility] Methylecgonine Negative Negative 07/13/2025 1:39 AM EDT [facility] Metoclopramide Negative Negative 07/13/2025 1:39 AM EDT [facility] Metoprolol Negative Negative 07/13/2025 1:39 AM EDT [facility] Metronidazole Negative Negative 07/13/2025 1:39 AM EDT [facility] Midazolam Negative Negative 07/13/2025 1:39 AM EDT [facility] Midazolam Metabolite Negative Negative 07/13/2025 1:39 AM EDT [facility] Mirtazapine Negative Negative 07/13/2025 1:39 AM EDT [facility] Misc Test Result Negative Negative 07/13/20 1:39 AM EDT [facility] Naproxen Negative Negative 07/13/2025 1:39 AM EDT [facility] Nefazodone Negative Negative 07/13/2025 1:39 AM EDT [facility] Norfentanyl Negative Negative 07/13/2025 1:39 AM EDT [facility] Nortriptyline Negative Negative 07/13/2025 1:39 AM EDT [facility] Ordanstron Negative Negative 07/13/2025 1:39 AM EDT [facility] Oxcarbazepine Negative Negative 07/13/2025 1:39 AM EDT [facility] Oxycodone Negative Negative 07/13/2025 1:39 AM EDT [facility] Paroxethine Negative Negative 07/13/2025 1:39 AM EDT [facility] Phenobarbital Negative Negative 07/13/2025 1:39 AM EDT [facility] Phentermine Negative Negative 07/13/2025 1:39 AM EDT [facility] Phenytoin Negative Negative 07/13/2025 1:39 AM EDT [facility] Primidone Negative Negative 07/13/2025 1:39 AM EDT [facility] Promethazine Negative Negative 07/13/2025 1:39 AM EDT [facility] Propofol Negative Negative 07/13/2025 1:39 AM EDT [facility] Propranolol Negative Negative 07/13/2025 1:39 AM EDT [facility] Quetiapine Negative Negative 07/13/2025 1:39 AM EDT [facility] Quinine Negative Negative 07/13/2025 1:39 AM EDT [facility] Rantidine Negative Negative 07/13/2025 1:39 AM EDT [facility] Sertraline Negative Negative 07/13/2025 1:39 AM EDT [facility] Spironolactone Positive(A) Negative 1:39 AM EDT [facility] Tizanidine Negative Negative 07/13/2025 1:39 AM EDT [facility] Topiramate Negative Negative 07/13/2025 1:39 AM EDT [facility] Tramadol Negative Negative 07/13/2025 1:39 AM EDT [facility] Trazadone/ Trazadone metabolite Negative Negative 07/13/2025 1:39 AM EDT [facility] Trimethoprim Negative Negative 07/13/2025 1:39 AM EDT [facility] Valproic Acid Negative Negative 07/13/2025 1:39 AM EDT [facility] Venlafaxine Negative Negative 07/13/2025 1:39 AM EDT [facility] Verapamil Negative Negative 07/13/2025 1:39 AM EDT [facility] Zolpidem Negative Negative 07/13/2025 1:39 AM EDT [facility] Xylazine Negative Negative 07/13/2025 1:39 AM EDT [facility] Urine Urine specimen obtained by clean catch procedure / Unknown Non-blood Collection / Unknown 07/11/2025 8:27 AM EDT 07/11/2025 9:07 AM EDT Portia Maguire MD LAB URINE ORDERABLES Nadia l Result [facility] [address] [place] [address] * ECG Adult (06/15/2025 10:35 AM EDT) EKG DIAGNOSIS CLASS Abnormal MUSE ECG Ventricular Rate 65 BPM MUSE ECG Atrial Rate 65 BPM MUSE ECG NM Interval 162 ms MUSE ECG QRSD Interval 86 ms MUSE ECG QT Interval 446 ms MUSE ECG QTC Interval 463 ms MUSE ECG P [place] 4 degrees MUSE ECG R [place] 58 degrees MUSE ECG T Wave [place] 22 degrees MUSE ECG Diagnosis Normal sinus rhythm MUSE ECG Diagnosis Cannot rule out Anterior infarct , age undetermined MUSE ECG Diagnosis Abnormal ECG MUSE ECG Diagnosis MUSE ECG Diagnosis Confirmed by Max Gregorio ([id number]) on 06/15/2025 3:47:28 PM MUSE ECG 06/15/2025 10:3 5 AM EDT 06/15/2025 3:47 PM EDT us Mary INTERIANO ECG ORDERABLES Final Result MUSE ECG * Leticia auris Surveillance by PCR (06/14/2025 6:47 PM EDT) Leticia auris PCR Result Not Detected Not Detected 06/18/2025 5:43 AM EDT [facility] Swab (Axilla and Groin) Non-blood Collection / Unknown 06/14/2025 6:47 PM EDT 06/14/2025 7:49 PM EDT Narrative [facility] - 06/18/2025 5:43 AM EDT This PCR assay was developed and its performance characteristics determined by [facility] as appropriate for clinical purposes. This assay has not been cleared or approved by the FDA, but is performed in a CLIA regulated laboratory that is qualified to perform high-complexity testing. Luis Angel Bee MD LAB MICROBIOLOGY - GENERA L ORDERABLES Final Result Performing Organization Address [facility]/ZIP Co de Phone Number [facility] [address] [place] [address] * SARS CoV-2/COVID-19 by PCR - Rapid (06/14/2025 6:47 PM EDT) Pathologist [facility] SARS CoV-2/COVID-1 9 RNA PCR Result Not Detected Not Detected 06/14/2025 8:35 PM EDT [facility] Swab Nasopharyngeal structure / Unknown Non-blood Collection / Unknown 06/14/2025 6:47 PM EDT 06/14/2025 7:49 PM EDT Narrative [facility] - 06/14/2025 8:35 PM EDT [...] L ORDERABLES Final Result Performing Organization Address City/[facility]/ZIP Co de Phone Number [facility] [address] [place] [address] * (ABNORMAL) Hepatitis B Surface Antibody, Quantitative (06/14/2025 6:31 PM EDT) Hepatitis B Surface Antibody, Quantitative 34.47(H) NonReacti ve: <8, Grayzone: 8 - <12, Reactive: >= 12 mIU/mL 06/14/2025 8:18 PM EDT [facility] Comment: Reactive. Individual is considered immune to HBV infection. Blood Venous blood specimen / Unknown Venipuncture / Unknown 06/14/2025 6:31 PM EDT 06/14/2025 7:05 PM EDT us Luis Angel Bee MD LAB BLOOD ORDERABLES Nadia l Result Performing Organization Address [facility]/ZIP Co de Phone Number [facility] [address] [place] [address] * Light Green Top (06/14/2025 6:31 PM EDT) Extra Hold for add-ons 06/14/2025 11:01 PM EDT [facility] Comment:Auto resulted. Blood Venous blood specimen / Unknown 06/14/2025 6:31 PM EDT 06/14/2025 8:12 PM EDT us Luis Angel Bee MD LAB BLOOD ORDERABLES Nadia l Result Performing Organization Address City/[facility]/ZIP Co de Phone Number [facility] [address] [place] [address] * Red Top (06/14/2025 6:31 PM EDT) Extra Hold for add-ons 06/14/2025 11:01 PM EDT [facility] Comment:Auto resulted. Blood Venous blood specimen / Unknown 06/14/2025 6:31 PM EDT 06/14/2025 8:12 PM EDT Result [facility] Luis [place] Bee MD LAB BLOOD ORDERABLES Nadia l Result Performing Organization Address [facility] Co de Phone Number [facility] [address] [place] [address] * Hepatitis C Virus (HCV) Quantitative PCR (06/14/2025 6:31 PM EDT) Pathologist [facility] Hepatitis C Virus (HCV) Quantitative Interpretation Not Detected Not Detected. 06/18/2025 10:15 PM EDT [facility] Blood Venous blood specimen / Unknown Venipuncture / Unknown 06/14/2025 6:31 PM EDT 06/15/2025 8:51 AM EDT Narrative [facility] - 06/18/2025 10:15 PM EDT [...] ORDERABLES Nadia l Result Performing Organization Address City/[facility]/ZIP Co de Phone Number [facility] [address] [place] [address] * HIV 1 & 2 Antibody/Antigen Screen (06/14/2025 6:31 PM EDT) Pathologist [facility] HIV 1 & 2 Antibody/Antigen Screen Non Reactive Non Reactive 06/14/2025 7:45 PM EDT [facility] Comment:Screening for HIV 1 & 2 antibodies, and P24 antigen is NONREACTIVE. No confirmatory testing is required. Blood Venous blood specimen / Unknown Venipuncture / Unknown 06/14/2025 6:31 PM EDT 06/14/2025 7:05 PM EDT Result Neto Bee MD LAB BLOOD ORDERABLES Nadia l Result Performing Organization Address City/[facility]/ZIP Co de Phone Number [facility] [address] [place] [address] * Hepatitis C Antibody (06/14/2025 6:31 PM EDT) Hepatitis C Antibody Negative Negative 06/14/2025 7:45 PM EDT [facility] Blood Venous blood specimen / Unknown Venipuncture / Unknown 06/14/2025 6:31 PM EDT 06/14/2025 7:05 PM EDT Result Neto Bee MD LAB BLOOD ORDERABLES Nadia l Result Performing Organization Address [facility] Co de Phone Number [facility] [address] [place] [address] * Hepatitis B Core Total Antibody IgG,IgM (06/14/2025 6:31 PM EDT) Pathologist [facility] Hepatitis B Core Total Antibody IgG,IgM Negative Negative 06/14/2025 8:18 PM EDT [facility] Blood Venous blood specimen / Unknown Venipuncture / Unknown 06/14/2025 6:31 PM EDT 06/14/2025 7:05 PM EDT Result Neto Bee MD LAB BLOOD ORDERABLES Nadia l Result Performing Organization Address City/[facility] Co de Phone Number [facility] [address] [place] [address] * (ABNORMAL) Vitamin D 25 Hydroxy (06/14/2025 6:31 PM EDT) Only the most recent of2 resultswithin the time period is included. Pathologist [facility] Vitamin D 25 Hydroxy 10.8(L) 20.0 - 80.0 ng/mL 06/14/2025 8:19 PM EDT [facility] Blood Venous blood specimen / Unknown Venipuncture / Unknown 06/14/2025 6:31 PM EDT 06/14/2025 7:05 PM EDT Narrative [facility] - 06/14/2025 8:19 PM EDT Testing performed on [employer] Color [employer], standardized against NIST SRM 2972. When testing [...] Nadia l Result Performing Organization Address [facility] Co de Phone Number [facility] [address] [place] [address] * Hepatitis B Surface Antigen (06/14/2025 6:31 PM EDT) Hepatitis B Surf Antigen Negative Negative 06/14/2025 8:18 PM EDT [facility] Blood Venous blood specimen / Unknown Venipuncture / Unknown 06/14/2025 6:31 PM EDT 06/14/2025 7:05 PM EDT us Luis [place] Bee MD LAB BLOOD ORDERABLES Nadia l Result [facility] [address] [place] [address] * Cytomegalovirus Antibody IgG (06/14/2025 6:31 PM EDT) CMV ANTIBODY IGG <0.20 <=0.59 U/mL 06/16/2025 9:07 PM EDT [facility]) Blood Venous blood specimen / Unknown Venipuncture / Unknown 06/14/2025 6:31 PM EDT 06/14/2025 7:[address] [facility] BILL) - 06/16/2025 9:07 PM EDT INTERPRETIVE [...] laboratory at the same time. Performed By: [facility] [address] [place] [address] Barrel Tester And Drainer: Balwinder Wadsworth MD, PhD CLIA Number: [id number] Luis [place] Bee MD LAB BLOOD ORDERABLES Nadia l Result Performing Organization Address City/[facility]/ZIP Co de Phone Number [facility] BILL) [address] [place] [address] * (ABNORMAL) APTT (06/14/2025 6:31 PM EDT) aPTT 47(H) 25 - 35 sec LAB COAGULATION METHOD 06/14/2025 7:23 PM EDT [facility] Blood Venous blood specimen / Unknown Venipuncture / Unknown 06/14/2025 6:31 PM EDT 06/14/2025 7:05 PM EDT Luis [place] Bee MD LAB BLOOD ORDERABLES Nadia l Result [facility] [address] [place] [address] * (ABNORMAL) CBC and Differential (06/14/2025 6:31 PM EDT) WBC Count 7.95 3.70 - 10.30 10*3/uL LAB HEMATOLOGY METHOD 06/14/2025 7:24 PM EDT [facility] RBC Count 2.90(L) 4.60 - 6.10 10*6/uL LAB HEMATOLOGY METHOD 06/14/2025 7:24 PM EDT [facility] HGB 10.1(L) 13.7 - 17.5 g/dL LAB HEMATOLOGY METHOD 06/14/2025 7:24 PM EDT [facility] HCT 29.7(L) 40.0 - 51.0 % LAB HEMATOLOGY METHOD 06/14/2025 7:24 PM EDT [facility] Platelet Count 56(L) 155 - 369 10*3/uL LAB HEMATOLOGY METHOD 06/14/2025 7:24 PM EDT [facility] MCV 102(H) 79 - 98 fL LAB HEMATOLOGY METHOD 06/14/2025 7:24 PM EDT [facility] MCH 34.8(H) 26.0 - 32.0 pg LAB HEMATOLOGY METHOD 06/14/2025 7:24 PM EDT [facility] MCHC 34.0 30.7 - 35.5 g/dL LAB HEMATOLOGY METHOD 06/14/2025 7:24 PM EDT [facility] RDW 16.9(H) 11.5 - 14.5 % LAB HEMATOLOGY METHOD 06/14/2025 7:24 PM EDT [facility] MPV 11.5 8.8 - 12.5 fL LAB HEMATOLOGY METHOD 06/14/2025 7:24 PM EDT [facility] nRBC 0.0 <=0.0 per 100 WBCs LAB HEMATOLOGY METHOD 06/14/2025 7:24 PM EDT [facility] Differential Type Automated LAB HEMATOLOGY METHOD 06/14/2025 7:24 PM EDT [facility] Neutrophils % 56 % LAB HEMATOLOGY METHOD 06/14/2025 7:24 PM EDT [facility] Lymphocytes % 25 % LAB HEMATOLOGY METHOD 06/14/2025 7:24 PM EDT [facility] Monocytes % 13 % LAB HEMATOLOGY METHOD 06/14/2025 7:24 PM EDT [facility] Eosinophils % 4 % LAB HEMATOLOGY METHOD 06/14/2025 7:24 PM EDT [facility] Basophils % 1 % LAB HEMATOLOGY METHOD 06/14/2025 7:24 PM EDT [facility] Immature Granulocytes % 1 % LAB HEMATOLOGY METHOD 06/14/2025 7:24 PM EDT [facility] Neutrophils Absolute 4.56 1.60 - 6.10 10*3/uL LAB HEMATOLOGY METHOD 06/14/2025 7:24 PM EDT [facility] Lymphocytes Absolute 1.97 1.20 - 3.90 10*3/uL LAB HEMATOLOGY METHOD 06/14/2025 7:24 PM EDT [facility] Monocytes Absolute 1.03(H) 0.30 - 0.90 10*3/uL LAB HEMATOLOGY METHOD 06/14/2025 7:24 PM EDT [facility] Eosinophils Absolute 0.31 0.00 - 0.50 10*3/uL LAB HEMATOLOGY METHOD 06/14/2025 7:24 PM EDT [facility] Basophils Absolute 0.04 0.00 - 0.10 10*3/uL LAB HEMATOLOGY METHOD 06/14/2025 7:24 PM EDT [facility] Immature Granulocytes Absolute 0.04 0.00 - 0.06 10*3/uL LAB HEMATOLOGY METHOD 06/14/2025 7:24 PM EDT [facility] Blood Venous blood specimen / Unknown Venipuncture / Unknown 06/14/2025 6:31 PM EDT 06/14/2025 7:06 PM EDT Narrative [facility] - 06/14/2025 7:24 PM EDT Therapeutic decision making should be based on absolute values, rather than percentages. us Luis Angel Bee MD LAB BLOOD ORDERABLES Nadia crockett Result [facility] [address] [place] [address] * Type and screen (06/14/2025 6:31 PM [...] BLOOD BANK TEST ORDER MARYA Final Result BLOOD BANK [address] [place] [address], * CT Angio Cardiac Coronary Arteries (06/13/2025 [...] source 192 MDCT scanner (Somatom Force, Siemens [employer])was used for data acquisition. A non-contrast [...] Yamini Martins MD on 06/13/2025 10:38 PM us Zarina INTERIANO IMG CT PROCEDURES Final Result [...] are based on Ultrasound LI-RADS version 2017. [email or web address] CRITICAL RESULT: No. COMMUNICATION: Per [...] recommendations are based on UltrasoundLI-RADS version 2017. [email or web address] -[email or web address] .[email or web address] CRITICAL RESULT: No. COMMUNICATION: Per [...] - 20.1 ug/L 06/13/2025 9:09 AM EDT [facility] Comment:Test performed at [facility]. Blood Venous blood specimen / Unknown Venipuncture / Unknown 06/13/2025 6:50 AM EDT 06/13/2025 7:24 AM EDT Moustapha Katz MD LAB REF LAB BLOOD AND FLUID OR D Final Result [facility] [address] [place] [address] * C-Telopeptide (06/13/2025 6:50 AM EDT) C Telopeptide Beta Cross Linked Serum Result 397 132 - 752 pg/mL 06/14/2025 9:07 PM EDT [facility]) Blood Venous blood specimen / Unknown Venipuncture / Unknown 06/13/2025 6:50 AM EDT 06/13/2025 7:25 AM EDT Narrative [facility]) - 06/14/2025 9:07 PM EDT REFERENCE INTERVAL: C-Telopeptide, Qfoy-Zqyfs-Upcnrh, Serum Access complete set of age- and/or gender-specific reference intervals for this test in the [employer] Test Directory ([employer]). Performed By: [facility] [address] [place] [address] Barrel Tester And Drainer: Balwinder Wadsworth MD, PhD CLIA Number: [id number] us Moustapha Katz MD LAB BLOOD ORDERABLES Final Res ult [facility]) [address] [place] [address] * Osteocalcin by ECIA (06/13/2025 6:50 AM EDT) OSTEOCALCIN BY ECIA 8 8 - 36 ng/mL 06/15/2025 12:10 AM EDT [facility] [facility]) Blood Venous blood specimen / Unknown Venipuncture / Unknown 06/13/2025 6:50 AM EDT 06/13/2025 7:58 AM EDT Narrative [facility]) - 06/15/2025 12:10 AM EDT INTERPRETIVE INFORMATION: Osteocalcin by ECIA In patients with renal failure, the osteocalcin result may be directly elevated, due to impaired clearance, and/or indirectly elevated due to renal osteodystrophy. Access complete set of age- and/or gender-specific reference intervals for this test in the [facility] Test Directory ([employer]). Performed By: [facility] [address] [place] [address] Barrel Tester And Drainer: Balwinder Wadsworth MD, PhD CLIA Number: [id number] Moustapha Katz MD LAB BLOOD ORDERABLES Final Res ult Performing Organization Address City/[facility]/ZIP Co de Phone Number [facility] ([place]) [address] [place] [address] * Vitamin D 1,25 Dihydroxy (06/13/2025 6:50 AM EDT) VITAMIN D, 1, 25-DIHYDROXY 43.7 19.9 - 79.3 pg/mL 06/13/2025 12:37 PM EDT [facility] Blood Venous blood specimen / Unknown Venipuncture / Unknown 06/13/2025 6:50 AM EDT 06/13/2025 7:25 AM EDT Moustapha Katz MD LAB BLOOD ORDERABLES Final Res ult Performing Organization Address [facility] Co de Phone Number [facility] [address] [place] [address] * Phosphorus, Plasma (06/13/2025 6:50 AM EDT) Phosphorus, Plasma 3.5 2.5 - 4.5 mg/dL 06/13/2025 7:56 AM EDT [facility] Blood Venous blood specimen / Unknown Venipuncture / Unknown 06/13/2025 6:50 AM EDT 06/13/2025 7:25 AM EDT Moustapha Katz MD LAB BLOOD ORDERABLES Final Res ult Performing Organization Address City/[facility]/ZIP Co de Phone Number [facility] [address] [place] [address] * Dexa Bone Density (06/08/2025 8:35 AM EDT) Anatomical Region Laterality Modality L-spine Radiographic Liseth ging Narrative 06/17/2025 10:07 PM EDT [facility] [address] [address], [place] [address] DXA Bone Densitometry Report: [06/08/2025] BMD test performed using the [employer] DXA System (analysis version: 14.10) manufactured by [employer]. REFERRING PROVIDER: Dr. Moustapha Katz MD CLINICAL [...] Resul t from Last 3 Months Insurance NANCY ANTHEM Advance Directives Documents on File Type Date Recorded Patient Preparation Center Coordinator Expl anation Power of Stage Hand 07/11/2025 POA / Trudy ng Will Care Teams Recreation Programmer Relationship Specialty Start Date End Date Chris Medel MD [address] [place] [address] PCP - General 03/14/25 Ruma Hernández APRN [address] [facility] [address] [place] [address] Referring Physician Gastroenterology 07/30/23
--- OUTSIDE RECORDS SUMMARY | 2025-08-01 07:14 | XMS_ITS | Encounter Summary ---
Author Organization Healthcare Address [address] [place] [address] Care Team Providers Care Accessibility Lift Technician Name Role Phone Ruma Hernández COMMUNITY ENGAGEMENT LEADER Unavailable Chris Medel MD Primary Care Provider [phone] Encounter Details Date Type Department Care Team (Late st Contact Info) Description 06/25/2025 Telephone [facility] [address] [place] [address] Meaghan Le, RN [facility] LIVER IDJ-ER-VOMYN [address] [place] [address] Social History Tobacco [...] How often do you attend [facility] or islam services? More than 4 times per year 02/19/2025 Do you belong to any clubs o r organizations such as evangelical groups, unions, [employer] or athletic groups, or school groups? Yes [...] all 06/15/2025 [facility] - [...] drink first t luisa in the morning (EYE-INSPECTOR BALL POINTS) to steady your nerves or to get rid of a hangover? 0 06/14/2025 CAGE Questionnaire Score 0 025 Utilities Answer Date Recorded In the past 12 months has e [employer], gas, oil, or water [employer] threatened to shut off services in your [...] Description 09/12/2025 8:30 AM EDT Clinical Support [facility] [address] [place] [address] 09/12/2025 10:00 AM EDT Office Visit [facility] [place] [address] [place] [address] Portia Maguire MD [address] [place] [address] 10/03/2025 12:45 PM EST Office Visit Medical Office Building Urology [address], [address] [place] [address] Suhail Brock MD [address] [facility] [address] [place] [address] 10/18/2025 4:20 PM EST Office Visit [facility] [address] [facility], [address] [place] [address] Moustapha Katz MD [address] [facility] [address] [place] [address] documented as of this encounter [...] documented as of this encounter Care Teams Accessibility Lift Technician Relationship Specialty Start Date End Date Chris Medel MD [address] [place] [address] PCP - General 03/14/25 Ruma Heránndez APRN [address] [place] [address] [address] [place] [address] Referring Physician Gastroenterology 07/30/23 documented as of this encounter
--- OUTSIDE RECORDS SUMMARY | 2025-08-01 07:15 | XMS_ITS ---
Author Organization [facility] Address [address] 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
--- OUTSIDE RECORDS SUMMARY | 2025-08-01 07:15 | XMS_ITS | Encounter Summary ---
Author Organization Healthcare Address [address] [place] [address] Care Team Providers Care Coal Gasification Technician Name Role Phone Ruma Hernández METAL CNC OPERATOR Unavailable [phone] Chris Medel MD Primary Care Provider [phone]- [phone] Encounter Details Date Type Department Care Team [...] often do you attend chur ch or buddhist services? More than 4 times [...] Recorded Patient Health Questionnaire-2 Score 0 03/14/2025 [facility] - [facility] Stress Questionnaire [...] Support [facility] [address] [place] [address] 09/12/2025 10:00 AM EDT Office Visit [facility] [place] [address] [place] [address] Portia Maguire MD [address] [place] [address] 10/03/2025 12:45 PM EST Office Visit Medical Office Building Urology [address] [facility], [address] [place] [address] Suhail Brock MD [address] [facility] [address] [place] [address] 10/18/2025 4:20 PM EST Office Visit [facility] [address] [facility], [address] [place] [address] Moustapha Katz MD [address] [facility] [address] [place] [address] documented as of this encounter [...] documented as of this encounter Care Teams Coal Gasification Technician Relationship Specialty Start Date End Date Chris Medel MD [address] [place] [address] PCP - General 03/14/25 Ruma Hernández APRN [address] [facility] [address] [place] [address] Referring Physician Gastroenterology 07/30/23 documented as of this encounter
--- OUTSIDE RECORDS SUMMARY | 2025-08-01 07:15 | XMS_ITS | Encounter Summary ---
Author Organization Healthcare Address [address] [place] [address] Care Team Providers Care Polish Compounder Name Role Phone Urban Brantley DO Primary Care Provider [phone] Ruma Hernández DEVELOPMENT WRITER Unavailable Chris Medel MD Primary Care Provider [phone] Encounter Details Date Type Department Care Team (Late st Contact Info) Description 12/30/2023 Orders Only External Location [address] [place] [address] Urban Stafford MD 1210 [facility] [address] [place] [address] Social History Tobacco Use Types [...] [facility] [place] [address] [place] [address] 09/12/2025 10:00 AM EDT Office Visit [facility] [place] [address] [place] [address] Portia Maguire MD [address] [place] [address] 10/03/2025 12:45 PM EST Office Visit Medical Office Building Urology [address] [facility], [address] [place] [address] Suhail Brock MD [address] [place] [address] 10/18/2025 4:20 PM EST Office Visit Professional [employer] [place] [facility] [address] [facility], [address] [place] [address] Moustapha Katz MD [address] [place] [address] documented as of this encounter [...] documented as of this encounter Care Teams Polish Compounder Relationship Specialty Start Date End Date Urban Brantley DO [address] [place] [address] PCP - General 07/30/23 03/13/25 Chris Medel MD [address] [place] [address] PCP - General 03/14/25 Ruma Hernández APRN [address] [place] [address] Referring Physician Gastroenterology 07/30/23 documented as of this encounter
--- OUTSIDE RECORDS SUMMARY | 2025-08-01 07:15 | XMS_ITS | Encounter Summary ---
Author Organization Healthcare Address [address] [place] [address] Care Team Providers Care Laserist Name Role Phone Ruma Hernández OFFICE EMPLOYEE Unavailable [phone] Chris Medel MD Primary Care Provider [phone]- [phone] Reason for Referral * Imaging (Routine) - Pending Review Specialty Diagnoses / Procedures Referred By Gianna reyes Referred To Contact Radiology Diagnoses Pre-liver transplant, listed Procedures US Guided Abdominal Paracentesis Consult to Interventional Radiology Portia Maguire MD [address] [facility] [address] [place] [address] Phone: tel: fax: Referral ID Status Reason Start Date Expiration Date V isits Requested Visits Authorized [id number] Pending Review 06/20/2025 12/20/2026 1 1 Encounter Details Date Type Department Care Team (Late st Contact Info) Description 06/20/2025 Telephone [facility] [address] [facility] [address] [place] [address] Meaghan Le, RN HOSPITAL LIVER [id number] [address] [place] [address] Social History Tobacco Use Types [...] How often do you attend chur or yarsani services? More than 4 times [...] and heating? Not hard at all 06/15/2025 [facility] of Occupat ional [...] any time in the past 12 m [facility], were you homeless or living [...] and will also fax an order to [facility] in case he can be seen there sooner. Message to provider. documented in this encounter Plan of Treatment Upcoming Encounters Date Type Department Care Team (Late st Contact Info) Description 09/12/2025 8:30 AM EDT Clinical Support [facility]plant [place] [address] [facility] [address] [place] [address] 09/12/2025 10:00 AM EDT Office Visit [facility] [place] [address] [place] [address] Portia Maguire MD [address] [facility] [address] [place] [address] 10/03/2025 12:45 PM EST Office Visit Medical Office Building Urology [address] [facility], [address] [place] [address] Suhail Brock MD [address] [facility] [address] [place] [address] 10/18/2025 4:20 PM EST Office Visit Professional [employer] [place] [facility] [address] [facility], [address] [place] [address] Moustapha Katz MD [address] [facility] [address] [place] [address] Scheduled Orders Name Type Priority [...] documented as of this encounter Care Teams Laserist Relationship Specialty Start Date End Date Chris Medel MD [address] [place] [address] PCP - General 03/14/25 Ruma Hernández APRN [address] [place] [address] Referring Physician Gastroenterology 07/30/23 documented as of this encounter
--- OUTSIDE RECORDS SUMMARY | 2025-08-01 07:15 | XMS_ITS | Encounter Summary ---
Author Organization Healthcare Address [address] [place] [address] Care Team Providers Care Mobile Home Servicer Name Role Phone Ruma Hernández LEAD RUBY ON RAILS DEVELOPER Unavailable [phone] Chris Medel MD Primary Care Provider [phone] Encounter Details Date Type Department Care Team (Late st Contact Info) Description 06/21/2025 Results Follow-Up [facility] [address] [place] [address] Meaghan Le, RN [facility] LIVER [id number] [address] [place] [address] Social History Tobacco Use Types [...] you attend [facility] or oriental orthodox services? More than [...] all 06/15/2025 [employer] of Occupat ional [facility] - Occupational Stress Questionnaire Answer Date [...] in the past 12 m [facility], were you homeless or living in a usp (including now)? No 06/15/2025 CAGE ASSESSMENT Answer [...] drink first t luisa in the morning (EYE-FARM EQUIPMENT ENGINE MECHANIC) to steady your nerves or to get rid of a hangover? 0 06/14/2025 CAGE Questionnaire Score 0 025 Utilities Answer Date Recorded In the past 12 months has e electric, gas, oil, or water [employer] threatened to shut off services in your [...] going to have a para tomorrow at [facility]. He is only on 40/100 - if they have to drain him do you want to increase his diuretics? documented in this encounter Plan of Treatment Upcoming Encounters Date Type Department Care Team (Late st Contact Info) Description 09/12/2025 8:30 AM EDT Clinical Support [facility] [address] [place] [address] 09/12/2025 10:00 AM EDT Office Visit [facility] [address] [place] [address] Portia Maguire MD [address] [place] [address] 10/03/2025 12:45 PM EST Office Visit Medical Office Building Urology [address], [address] [place] [address] Suhail Brock MD [address] [place] [address] 10/18/2025 4:20 PM EST Office Visit [employer] [address] [facility], [address] [place] [address] Moustapha Katz MD [address] [facility] [address] [place] [address] documented as of this encounter [...] documented as of this encounter Care Teams Mobile Home Servicer Relationship Specialty Start Date End Date Chris Medel MD [address] [place] [address] PCP - General 03/14/25 Ruma Hernández APRN [address] [place] [address] [address] [place] [address] Referring Physician Gastroenterology 07/30/23 documented as of this encounter
--- OUTSIDE RECORDS SUMMARY | 2025-08-01 07:15 | XMS_ITS | Encounter Summary ---
Author Organization Healthcare Address [address] [place] [address] Care Team Providers Care Security Team Lead Name Role Phone Ruma Hernández MOVEMENT ASSEMBLER Unavailable Chris Medel MD Primary Care Provider [phone] Encounter Details Date Type Department Care Team (Late st Contact Info) Description 06/05/2025 Results Follow-Up [facility] Center [address] [place] [address] Meaghan Le, RN [place] [facility] LIVER [id number] [address] [place] [address] Social History Tobacco Use Types [...] Recorded Patient Health Questionnaire-2 Score 0 06/08/2025 [facility] - Occupational Stress Questionnaire [...] at all 06/08/2025 9:04 AM EDT Mellissa Martinse Patient Health Questionnaire -2 Score 0 06/08/2025 [...] Description 09/12/2025 8:30 AM EDT Clinical Support [facility] [address] [place] [address] 09/12/2025 10:00 AM EDT Office Visit [facility] [address] [place] [address] Portia Maguire MD [address] [place] [address] 10/03/2025 12:45 PM EST Office Visit Medical Office Building Urology [address] [facility], [address] [place] [address] Suhail Brock MD [address] [place] [address] 10/18/2025 4:20 PM EST Office Visit Professional [employer] [place] [facility] [address] [facility], [address] [place] [address] Moustapha Katz MD [address] [facility] [address] [place] [address] documented as of this encounter [...] as of this encounter Care Teams Security Team Lead Relationship Specialty Start Date End Date Chris Medel MD [address] [place] [address] PCP - General 03/14/25 Ruma Hernández APRN [address] [place] [address] Referring Physician Gastroenterology 07/30/23 documented as of this encounter
--- OUTSIDE RECORDS SUMMARY | 2025-08-01 07:15 | XMS_ITS | Encounter Summary ---
Author Organization Healthcare Address [address] [place] [address] Care Team Providers Care Statistical Methods Teacher Name Role Phone Ruma Hernández TANK OFFICER Unavailable [phone] Chris Medel MD Primary Care Provider [phone] Encounter Details Date Type Department Care Team (Late st Contact Info) Description 06/29/2025 Results Follow-Up [facility] Trans[facility] [address] [place] [address] Meaghan Le, RN [facility] LIVER [id number] [address] [place] [address] Social History Tobacco Use Types [...] attend [facility] or samaritan services? More than 4 times [...] How often do you attend chur or samaritan services? More than 4 times [...] all 06/15/2025 [facility] of Occupat ional [facility] - Occupational Stress Questionnaire Answer [...] drink first t luisa in the morning (EYE-WARP TIER) to steady your nerves or to get rid of a hangover? 0 06/14/2025 CAGE Questionnaire Score 0 025 Utilities Answer Date Recorded In the past 12 months has th [employer], gas, oil, or water [employer] threatened to shut off services in your [...] AM EDT Clinical Support [facility] Transplant [place] [address] [facility] [address] [place] [address] 09/12/2025 10:00 AM EDT Office Visit [employer] [facility] [place] [address] [place] [address] Portia Maguire MD [address] [facility] [address] [place] [address] 10/03/2025 12:45 PM EST Office Visit Medical Office Building Urology [address] [facility], [address] [place] [address] Suhail Brock MD [address] [facility] [address] [place] [address] 10/18/2025 4:20 PM EST Office Visit Professional [employer] [place] [facility] [address] [facility], [address] [place] [address] Moustapha Katz MD [address] [facility] [address] [place] [address] documented as of this [...] documented as of this encounter Care Teams Statistical Methods Teacher Relationship Specialty Start Date End Date Chris Medel MD [address] [place] [address] PCP - General 03/14/25 Ruma Hernández APRN [address] [place] [address] Referring Physician Gastroenterology 07/30/23 documented as of this encounter
--- OUTSIDE RECORDS SUMMARY | 2025-08-01 07:15 | XMS_ITS | Encounter Summary ---
Author Organization Healthcare Address [address] [place] [address] Care Team Providers Care Supervisor Reinforced Steel Placing Name Role Phone Ruma Hernández FREIGHT CAR CLEANER Unavailable [phone] Chris Medel MD Primary Care Provider [phone]- [phone] Encounter Details Date Type Department Care Team [...] often do you attend chur ch or anabaptism services? More than 4 times per year 02/19/2025 Do you belong to any clubs o r organizations such as muslim groups, unions, fraternal or athletic groups, or [...] Questionnaire-2 Score 0 06/08/2025 [facility] - Occupational Stress Questionnaire Answer Date Recorded [...] EDT Clinical Support [facility] Trans[facility] Center [address] [facility] [address] [place] [address] 09/12/2025 10:00 AM EDT Office Visit [facility] [address] [facility] [address] [place] [address] Portia Maguire MD [address] [facility] [address] [place] [address] 10/03/2025 12:45 PM EST Office Visit Medical Office Building Urology [address] [facility], [address] [place] [address] Suhail Brock MD [address] [facility] [address] [place] [address] 10/18/2025 4:20 PM EST Office Visit [facility] [address] [facility], [address] [place] [address] Moustapha Katz MD [address] [facility] [address] [place] [address] documented as of this encounter [...] as of this encounter Care Teams Supervisor Reinforced Steel Placing Relationship Specialty Start Date End Date Chris Medel MD [address] [place] [address] PCP - General 03/14/25 Ruma Hernández APRN [address] [place] [address] [address] Referring Physician Gastroenterology 07/30/23 documented as of this encounter
--- OUTSIDE RECORDS SUMMARY | 2025-08-01 07:15 | XMS_ITS | Encounter Summary ---
Author Organization Healthcare Address [address] [place] [address] Care Team Providers Care Tool Setter Name Role Phone Ruma Hernández EDUCATION REVIEWER Unavailable [phone] Chris Medel MD Primary Care Provider [phone] Encounter Details Date Type Department Care Team (Late st Contact Info) Description 06/06/2025 Telephone [facility] [address] [place] [address] Mell Masterson, RN CH-DIAGNOSTIC RADIOLOGY Social History [...] often do you attend [facility] or [facility] services? More than 4 [...] often do you attend [facility] or advent services? More than 4 [...] and heating? Not hard at all 06/15/2025 [facility] of Occupat ional Health - Occupational Stress [...] drink first t luisa in the morning (EYE-DIESEL MECHANIC FARM) to steady your nerves or to get rid of a hangover? 0 06/14/2025 CAGE Questionnaire Score 0 025 Utilities Answer Date Recorded In the past 12 months has th e [employer], gas, oil, or water company threatened to [...] things Not at all 06/08/2025 9:04 AM Melilssa Ng Feeling down, depressed, or hopeless Not [...] Description 09/12/2025 8:30 AM EDT Clinical Support [facility] [place] [address] [facility] [address] [place] [address] 09/12/2025 10:00 AM EDT Office Visit [facility] [place] [address] [facility] [address] [place] [address] Portia Maguire MD [address] [facility] [address] [place] [address] 10/03/2025 12:45 PM EST Office Visit Medical Office Building Urology [address] [facility], [address] [place] [address] Suhail Brock MD [address] [facility] [address] [place] [address] 10/18/2025 4:20 PM EST Office Visit Professional [email or web address] [place] [facility] [address] [facility], [address] [place] [address] Moustapha Katz MD [address] [facility] [address] [place] [address] documented as of this [...] as of this encounter Care Teams Tool Setter Relationship Specialty Start Date End Date Chris Medel MD [address] [place] [address] PCP - General 03/14/25 Ruma Hernández APRN [address] [address] Referring Physician Gastroenterology 07/30/23 documented as of this encounter
--- OUTSIDE RECORDS SUMMARY | 2025-08-01 07:15 | XMS_ITS | Encounter Summary ---
Author Organization Healthcare Address [address] [place] [address] Care Team Providers Care Ammunition Storage Superintendent Name Role Phone Urban Brantley DO Primary Care Provider [phone] Ruma Hernández BUSINESS INFORMATION MANAGER Unavailable [phone] Chris Medel MD Primary Care Provider [phone] Encounter Details Date Type Department Care Team (Late st Contact Info) Description 03/22/2023 Orders Only External Location [address] [place] [address] Provider, External Social History Tobacco Use Types [...] AM EDT Clinical Support [facility] [place] [address] [address] 09/12/2025 10:00 AM EDT Office Visit [facility] [place] [address] [address] Portia Maguire MD [address] [place] [address] [place] [address] 10/03/2025 12:45 PM EST Office Visit Medical Office Building Urology [address] [facility], [address] [place] [address] Suhail Brock MD [address] [place] [place] [address] 10/18/2025 4:20 PM EST Office Visit Professional [employer] [place] [facility] Mineral Metabolism [address] [facility], [address] [place] [address] Moustapha Katz MD [address] [facility] [address] [place] [address] documented as of this encounter [...] documented as of this encounter Care Teams Ammunition Storage Superintendent Relationship Specialty Start Date End Date Urban Brantley DO [address] [place] [address] PCP - General 07/30/23 03/13/25 Chris Medel MD [address] [place] [address] PCP - General 03/14/25 Ruma Hernández APRN [address] [facility] [address] [place], [place] [address] Referring Physician Gastroenterology 07/30/23 documented as of this encounter
--- OUTSIDE RECORDS SUMMARY | 2025-08-01 07:15 | XMS_ITS | Encounter Summary ---
Author Organization Healthcare Address [address] [place] [address] Care Team Providers Care Crab Meat Processor Name Role Phone Ruma Hernández MULESER Unavailable [phone] Chris Medel MD Primary Care Provider [phone] Encounter Details Date Type Department Care Team (Late st Contact Info) Description 06/07/2025 Telephone [facility] [address] [facility], [address] [place] [address] Mary Chatman, [facility] [...] Patient Health Questionnaire-2 Score 0 06/08/2025 [facility] of Occupat ional Health - [...] in the past [address] [facility], were you homeless or living in [...] Faxed record request [facility] lab results to [facility] Medical Records F documented in this encounter Plan of Treatment Upcoming Encounters Date Type Department Care Team (Late st Contact Info) Description 09/12/2025 8:30 AM EDT Clinical Support [facility] Transplant [place] [address] [facility] [address] [place] [address] 09/12/2025 10:00 AM EDT Office Visit [facility] [place] [address] [facility] [address] [place] [address] Portia Maguire MD [address] [facility] [address] [place] [address] 10/03/2025 12:45 PM EST Office Visit Medical Office Building Urology [address] [facility], [address] [place] [address] Suhail Brock MD [address] [facility] [address] [place] [address] 10/18/2025 4:20 PM EST Office Visit Professional [employer] [place] [facility] Metabolism [address] [facility], [address] [place] [address] Moustapha Katz MD [address] [facility] [address] [place] [address] documented as of this encounter [...] documented as of this encounter Care Teams Crab Meat Processor Relationship Specialty Start Date End Date Chris Medel MD [address] [place] [address] PCP - General 03/14/25 Ruma Hernández APRN [address] [place] [address] Referring Physician Gastroenterology 07/30/23 documented as of this encounter
--- OUTSIDE RECORDS SUMMARY | 2025-08-01 07:15 | XMS_ITS | Encounter Summary ---
Author Organization Healthcare Address [address] [place] [address] Care Team Providers Care Manager Surgery Name Role Phone Urban Brantley DO Primary Care Provider [phone] Ruma Hernández DRAFTER PLUMBING Unavailable [phone] Chris Medel MD Primary Care Provider [phone] Encounter Details Date Type Department Care Team (Late st Contact Info) Description 03/22/2023 Orders Only External Location [address] [place] [address] Provider, External Social History Tobacco Use Types [...] Clinical Support [facility] Transplant [place] [address] [address] 09/12/2025 10:00 AM EDT Office Visit [facility] [place] [address] [address] Portia Maguire MD [address] [place] [address] 10/03/2025 12:45 PM EST Office Visit Medical Office Building Urology [address] [facility], [address] [place] [address] Suhail Brock MD [address] [place] [address] 10/18/2025 4:20 PM EST Office Visit Professional [employer] [place] Bone & Mineral Metabolism [address] [facility], [address] [place] [address] Moustapha Katz MD [address] [facility] [address] [place] [address] documented as of this encounter [...] as of this encounter Care Teams Manager Surgery Relationship Specialty Start Date End Date Urban Brantley DO [address] [place] [address] PCP - General 07/30/23 03/13/25 Chris Medel MD [address] [place] [address] PCP - General 03/14/25 Ruma Hernández APRN [address] [facility] 202 [place], [place] [address] Referring Physician Gastroenterology 07/30/23 documented as of this encounter
--- OUTSIDE RECORDS SUMMARY | 2025-08-01 07:15 | XMS_ITS | Encounter Summary ---
Author Organization Healthcare Address [address] [place] [address] Care Team Providers Care Outcomes Specialist Name Role Phone Urban Brantley DO Primary Care Provider [phone] Ruma Hernández NEEDLE LOOM WEAVER Unavailable [phone] Chris Medel MD Primary Care Provider [phone] Encounter Details Date Type Department Care Team (Late st Contact Info) Description 05/09/2023 Orders Only External Location [address] [place] [address] Provider, External Social History Tobacco Use Types [...] Description 09/12/2025 8:30 AM EDT Clinical Support [facility] [place] [address] [address] 09/12/2025 10:00 AM EDT Office Visit [facility] [place] [address] [address] Portia Maguire MD [address] [place] [address] 10/03/2025 12:45 PM EST Office Visit Medical Office Building Urology [address] [facility], [address] [place] [address] Suhail Brock MD [address] [place] [address] 10/18/2025 4:20 PM EST Office Visit [facility] [employer] [place] [facility] [address] [facility], [address] [place] [address] Moustapha Katz MD [address] [facility] [address] [place] [address] documented as of this encounter [...] documented as of this encounter Care Teams Outcomes Specialist Relationship Specialty Start Date End Date Urban Brantley DO [address] [place] [address] PCP - General 07/30/23 03/13/25 Chris Medel MD [address] [place] [address] PCP - General 03/14/25 Ruma Hernández APRN [address] [facility] 202 [place] [address] Referring Physician Gastroenterology 07/30/23 documented as of this encounter
[2025-08-01 07:36] LABS: Hematocrit 30.7 % (42.0-52.0); Hemoglobin 10.1 g/dL (14.1-18.0); Immature Granulocytes % 0.3 %; Mean Corpuscular HGB Conc 32.9 g/dL (31.8-35.4); Mean Corpuscular Hemoglobin 33.3 pg (27.0-31.2); Mean Corpuscular Volume 101.3 fl (80-94); Nucleated Red Blood Cells % 0 %; Platelet Count 63 K/mm3 (142-424); Red Blood Count 3.03 M/mm3 (4.60-6.20); Red Cell Distribution Width-SD 61.8 fL; White Blood Count 4.0 K/mm3 (4.8-10.8)
[2025-08-01 07:46] LABS: Activated Partial Thrombo Time 39.6 seconds (22.8-30.6); INR 1.73 (0.9-1.1); Prothrombin Time 18.4 seconds (10.1-12.5)
[2025-08-01 08:18] LABS: Alanine Aminotransferase 33 U/L (12-78); Albumin Level 2.1 g/dl (3.5-5.0); Albumin/Globulin Ratio 0.5 (1.1-1.8); Alkaline Phosphatase 173 U/L (38-126); Anion Gap 3.9 mEq/L (5-15); Aspartate Amino Transferase 47 U/L (17-59); Bilirubin,Total 4.1 mg/dl (0.2-1.3); Blood Urea Nitrogen 14 mg/dl (9-20); Calcium 7.8 mg/dl (8.4-10.2); Carbon Dioxide 28 mmol/L (22.0-30.0); Chloride 109 mmol/L (98-107); Creatinine,Serum 0.80 mg/dl (0.66-1.25); Estimated Glomerular Filt Rate 97 ml/min (>60); GFR (African American) 118 ML/MIN (>60); Globulin 4.0 g/dL (1.3-3.2); Glucose 97 mg/dl (74-100); Potassium 3.9 mmoL/L (3.5-5.1); Sodium 137 mmol/L (136-145); Total Protein,Serum 6.1 g/dl (6.3-8.2)
== END 2025-08-01 23:59 | disposition home or self-care (01) ==
LOC: LAB 07:12
PROVIDERS: Physician Assistant; PCP Family Medicine; Visit Provider Internal Medicine
DX: K72.90 Hepatic failure, unspecified without coma (principal)
CPT/HCPCS: 36415; 80053; 85025; 85610; 85730

== ENCOUNTER 2025-08-15 07:37 | Outpatient (CLI) | payer BC, SELFPAY ==
--- OUTSIDE RECORDS SUMMARY | 2023-08-27 08:34 | XMS_ITS | Encounter Summary ---
[facility] Address [address] [place] [address] Care Team Providers Care Massage Therapy Instructor Name Role Phone Karon Urban Jc DO Primary Care Provider [phone] Encounter Details Date Type Department Care Team (Late st Contact Info) Description 08/27/2023 8:34 AM EDT Hospital Encounter [facility] [address] [place] [id number] Social History Tobacco Use Types Packs/Day [...] on filedocumented in this encounter Care Teams Massage Therapy Instructor Relationship Specialty Start Date End Date Urban Brantley DO [address] [place] [address] [place] [address] PCP - General Internal Medicine 03/22/23 documented as of this encounter
--- OUTSIDE RECORDS SUMMARY | 2025-06-15 23:59 | XMS_ITS | Encounter Summary ---
Author Organization [facility] Address [address] [place] [address] Care Team Providers Care Business Analyst Consultant Name Role Phone Ruma Hernández LUMBER MOVER Unavailable [phone] Chris Medel MD Primary Care Provider [phone] Encounter Details Date Type Department Care Team (Late st Contact Info) Description 06/15/2025 11:59 PM EDT Anesthesia Event [facility] A OPERATING ROOM [address] [place] [address] Mary Castellon, LAISHA [address] [facility] [address] [place] [address] Fanta Morrissey APRN [address] [place] [address] Anesthesia Record Procedure Summary Procedure Name Responsible [...] week 02/19/2025 How often do you attend [facility] or buddhist services? More than 4 times per year 02/19/2025 Do you belong to any clubs o r organizations such as confucianist groups, unions, fraRavgen or athletic groups, or school groups? Yes [...] 06/15/2025 How often do you attend [facility] or buddhist services? More than 4 times per year [...] and heating? Not hard at all 06/15/2025 [facility] - Occupational Stress Questionnaire Answer [...] the past 12 m [facility], were you homeless or living in a half-way (including now)? No 06/15/2025 CAGE ASSESSMENT Answer [...] drink first t luisa in the morning (EYE-CUSTOMER CARE REPRESENTATIVE) to steady your nerves or to get rid of a hangover? 0 06/14/2025 CAGE Questionnaire Score 0 025 Utilities Answer Date Recorded In the past 12 months has th [employer], gas, oil, or water [employer] threatened to shut off services in your [...] Description 09/12/2025 8:30 AM EDT Clinical Support [facility] Transplant Center [address] [place] [address] 09/12/2025 10:00 AM EDT Office Visit [facility] [address] [place] [address] Portia Maguire MD [address] [facility] [address] [place] [address] 10/03/2025 12:45 PM EST Office Visit Medical Office Building Urology [address] [facility], [address] [place] [address] Suhail Brock MD [address] [place] [address] 10/18/2025 4:20 PM EST Office Visit [facility] [place] [facility] [address] [facility], [address] [place] [address] Moustapha Katz MD [address] [facility] [address] [place] [address] documented as of this encounter Visit Diagnoses [...] documented as of this encounter Care Teams Business Analyst Consultant Relationship Specialty Start Date End Date Chris Medel MD [address] [place] [address] PCP - General 03/14/25 Ruma Hernández APRN [address] [place], [place] [address] Referring Physician Gastroenterology 07/30/23 documented as of this encounter
--- OUTSIDE RECORDS SUMMARY | 2025-07-11 09:30 | XMS_ITS | Encounter Summary ---
Author Organization [facility] Address [address] [place] [address] Care Team Providers Care Machining And Assembly Supervisor Name Role Phone Ruma Hernández MOTION PICTURE NARRATOR Unavailable [phone] Chris Medel MD Primary Care Provider [phone] Encounter Details Date Type Department Care Team (Late st Contact Info) Description 07/11/2025 9:30 AM EDT Social Work [facility] [address] [place] [address] Liliane Jacobs, [place] [id number] Social History Tobacco Use Types Packs/Day Years [...] week 02/19/2025 How often do you attend [facility] or hinduism services? More than 4 times [...] week 06/15/2025 How often do you attend [facility] or hinduism services? More than 4 times [...] 06/15/2025 [facility] - Occupational Stress Questionnaire Answer [...] living in a longterm (including now)? No 06/15/2025 CAGE ASSESSMENT Answer [...] drink first t luisa in the morning (EYE-SALES ENGINEER) to steady your nerves or to get rid of a hangover? 0 06/14/2025 CAGE Questionnaire Score 0 025 Utilities Answer Date Recorded In the past 12 months has th [employer], gas, oil, or water [employer] threatened to shut off services in your [...] present at assessment: patient and , Stacy Live Ammunition Inspector: Meaghan Le RN David Pop is a 65 y.o. male with a diagnosis of decompensated alcohol associated cirrhosis . He is being evaluated for a liver transplant. Primary language: Spanish Confucianism/spirituality: Confucianism Do you have any hinduism, ethical or personal objections to accepting blood products, surgery and/or transplant? No Citizenship Where were you born? [place] Family Background and Supportive Relationships Parental information: mother at [facility] in [facility] [place]; dad Sibling information: 1 brother and 1 sister, both in [place]; good relationship with both Children: son, Lan, ; daughter Gloria; Gloria is in [place], Lan in [place] Marital/relationship status: Stacy, spouse; [phone], 31 years Household composition: patient and spouse Babysit grandkids on occasion, but they are going to daycare soon - young Support / Caregiver Plans Who will be your primary caregiver? Stacy, Health status & availability: works in [employer], can work remote if need be - [...] local housing required? No, patient lives in [place], [place], about an hour away Insurance benefit for local housing? N/a Education / Employment / Financial Situation What is your highest level of education? Graduated HS Are you able to read and write? 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 no Have you applied for disability? N/a Do you have short term or aitchbone breaker disability available thru work? no Financial Status [...] NANCY - NANCY CANOI* MELE POP* Self [id number] [id number] What is your yearly insurance deductible? $3500 [...] needs for transplant. 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 yes Impression Low Risk -1;Moderate Risk -2;High Risk -3;Absolute contraindication -4 Social Support: 1 Identified Strengths / Risks: patient with good family support and extended support network of friends. present for eval and is able to work remote should she need to. Financial / Insurance: 1 Identified Strengths / Risks: patient with [employer] traditional plan until age 66 when he [...] 09/12/2025 8:30 AM EDT Clinical Support [facility] [address] [place] [address] 09/12/2025 10:00 AM EDT Office Visit [facility] [address] [place] [address] Portia Maguire MD [address] [facility] [address] [place] [address] 10/03/2025 12:45 PM EST Office Visit Medical Office Building Urology [address] [facility], [address] [place] [address] Suhail Brock MD [address] [facility] [address] [place] [address] 10/18/2025 4:20 PM EST Office Visit [facility] [place] [facility] [address] [facility], [address] [place] [address] Moustapha Katz MD [address] [facility] [address] [place] [address] documented as of [...] as of this encounter Care Teams Machining And Assembly Supervisor Relationship Specialty Start Date End Date Chris Medel MD [address] [place] [address] PCP - General 03/14/25 Ruma Hernández APRN [address] [facility] [address] [place] [address] Referring Physician Gastroenterology 07/30/23 documented as of this encounter
--- OUTSIDE RECORDS SUMMARY | 2025-07-11 10:30 | XMS_ITS | Encounter Summary ---
Author Organization Healthcare Address [address] [place] [address] Care Team Providers Care Garage Manager Name Role Phone Ruma Hernández STREET CLEANING EQUIPMENT OPERATOR Unavailable [phone] Chris Medel MD Primary Care Provider [phone] Reason for Visit * Reason Comments Pre-Liver Txp Follow-up Encounter Details Date Type Department Care Team (Late st Contact Info) Description 07/11/2025 10:30 AM EDT Office Visit [facility] [address] [place] [address] Portia Maguire MD [address] [facility] [address] [place] [address] Cirrhosis of liver with ascites, [...] How often do you attend chur or buddhist services? More than 4 times per year 02/19/2025 Do you belong to any clubs o r organizations such as uatsdin groups, Like[employer], [employer] or athletic groups, or school groups? Yes [...] do you attend [facility] or buddhist services? More than 4 times [...] and heating? Not hard at all 06/15/2025 [facility] of Occupat ional Health - [...] drink first t luisa in the morning (EYE-CHIEF INFORMATION OFFICER) to steady your nerves or to get rid of a hangover? 0 06/14/2025 CAGE Questionnaire Score 0 025 Utilities Answer Date Recorded In the past 12 months has th [employer], gas, oil, or water [employer] threatened to shut off services in your [...] 8:30 AM EDT Clinical Support [facility] [address] [place] [address] 09/12/2025 10:00 AM EDT Office Visit [facility] [address] [place] [address] Portia Maguire MD [address] [place] [address] 10/03/2025 12:45 PM EST Office Visit Medical Office Building Urology [address] , [address] [place] [address] Suhail Brock MD [address] [place] [address] 10/18/2025 4:20 PM EST Office Visit Professional [facility] Bone & Mineral Metabolism [address] , [address] [place] [address] Moustapha Katz MD [address] [place] [address] documented as of this encounter [...] documented as of this encounter Care Teams Garage Manager Relationship Specialty Start Date End Date Chris Medel MD [address] [place] [address] PCP - General 03/14/25 Ruma Hernández APRN [address] [place] [address] Referring Physician Gastroenterology 07/30/23 documented as of this encounter
--- OUTSIDE RECORDS SUMMARY | 2025-08-15 07:41 | XMS_ITS | Encounter Summary ---
Author Organization Healthcare Address [address] [place] [address] Care Team Providers Care Vocal Teacher Name Role Phone Ruma Hernández NUCLEAR FUELS RESEARCH ENGINEER Unavailable [phone] Chris Medel MD Primary Care Provider [phone] Encounter Details Date Type Department Care Team (Late st Contact Info) Description 08/01/2025 Results Follow-Up [facility] [address] [place] [address] Meaghan Le, RN [facility] LIVER [id number] [address] [place] [address] Social History Tobacco Use Types [...] you attend [facility] or amish services? More than 4 times per year [...] How often do you attend chur or amish services? More than 4 times per year [...] and heating? Not hard at all 06/15/2025 [facility] of Occupat ional [facility] - Occupational Stress Questionnaire Answer Date [...] drink first t luisa in the morning (EYE-RESIDENT CARE AIDE) to steady your nerves or to get [...] Encounter Note - Meaghan Le RN - 08/01/2025 1:50 PM EDT Rpt labs documented in this encounter Plan of Treatment Upcoming Encounters Date Type Department Care Team ([facility] Contact Info) Description 09/12/2025 8:30 AM EDT Clinical Support [facility] [address] [place] [address] 09/12/2025 10:00 AM EDT Office Visit [facility] [place] [address] [place] [address] Portia Maguire MD [address] [place] [address] 10/03/2025 12:45 PM EST Office Visit Medical Office Building Urology [address] [facility], [address] [place] [address] Suhail Brock MD [address] [facility] [address] [place] [address] 10/18/2025 4:20 PM EST Office Visit [facility] [employer] [place] [facility] [address] [facility], [address] [place] [address] Moustapha Katz MD [address] [facility] [address] [place] [address] documented as of this encounter [...] documented as of this encounter Care Teams Vocal Teacher Relationship Specialty Start Date End Date Chris Medel MD [address] [place] [address] PCP - General 03/14/25 Ruma Hernández APRN 17[address] [facility] [address] [place] [address] Referring Physician Gastroenterology 07/30/23 documented as of this encounter
--- OUTSIDE RECORDS SUMMARY | 2025-08-15 07:41 | XMS_ITS | Clinical Summary ---
Author Organization [facility] Address [address] [place] [address] Care Team Providers Care Annealing Operator Name Role Phone Unavailable Primary Care Provider [...] therelease of HIV test results or diagnoses. [id number] Health Encounters Date Type Department Care Team Description 08/13/2025 Telephone [facility] Liver Transplant at [address] [address] Cori Dover MA 08/13/2025 Telephone [facility] Liver Transplant at [address] [address] Cori Dover MA 08/13/2025 Orders Only [facility] Liver Transplant at [place] [address] [place] [address] Chapito Alcantar RN Pre-transplant evaluation for chronic liver disease (Primary Dx) 08/13/2025 Chart Note [facility] Kidney Transplant at [address] [place] [address] Ailin Wells Patient is financially cleared for liver transplant evaluation 08/02/2025 Chart Note [facility] Liver Transplant at [address] [place] [address] Cori Dover MA Liver transplant referral entered. 08/01/2025 Chart Note [facility] Liver Transplant at [address] [place] [address] Chapito Alcantar, aircraft instrument tester for liver transplant was received and reviewed. The review notes 07/31/2025 Telephone [facility] Liver Transplant at [address] [place] [address] Chapito Alcantar, RN from Last 3 Months Social History Tobacco Use Types Packs/Day Years Used Date Smoking Tobacco: Never Assessed Sex and Gender Information Value Date Recorded Sex Assigned at Not on file Legal Sex Male 3:33 PM EDT Gender Identity Not on file Sexual Orientation Not on file Plan of Treatment Health Maintenance Due Date Last Done Comments Abnormal Colonoscopy Follow Up 1961 Hepatitis C Screening (MyChart) 1961 Alcohol Misuse Screening 1979 Depression Screening 1979 HIV Screening 1979 Immunization: DTaP/Tdap/Td (1 - Tdap) 02/02/1980 Cologuard (FIT-DNA) 2006 Colonoscopy 2006 Colorectal Cancer Screening (MyChart) 2006 Stool Testing (gFOBT) 2006 Immunization: Pneumococcal (1 of 1 - PCV) 2011 Immunization: Zoster (1 of 2) 2011 Immunization: COVID-19 ( - season) 2025 Immunization: Influenza (MyChart) (#1) 2025 Immunization: RSV (Adult) (1 - 1-dose 75+ series) 01/14 Insurance BLUE ACCESS BLUE ACCESS
--- OUTSIDE RECORDS SUMMARY | 2025-08-15 07:41 | XMS_ITS | Encounter Summary ---
Author Organization Healthcare Address [address] [place] [address] Care Team Providers Care Consultant In Ergonomics And Safety Name Role Phone Ruma Hernández PORCELAIN SLUSHER Unavailable [phone] Chris Medel MD Primary Care Provider [phone] Encounter Details Date Type Department Care Team (Late st Contact Info) Description 06/14/2025 Results Follow-Up [facility] [address] [place] [address] Meaghan Le, RN [facility] LIVER [id number] [address] [place] [address] Social History Tobacco Use Types [...] you attend [facility] or christian services? More than 4 times [...] How often do you attend chur or christian services? More than 4 times [...] and heating? Not hard at all 06/15/2025 [facility] of Occupat ional [facility] - Occupational Stress Questionnaire Answer Date [...] drink first t luisa in the morning (EYE-LAWN SPRINKLER INSTALLER) to steady your nerves or to get rid of a hangover? 0 06/14/2025 CAGE Questionnaire Score 0 025 Utilities Answer Date Recorded In the past 12 months has [employer], gas, oil, or water [employer] threatened to shut off services in your [...] Support [facility] [address] [place] [address] 09/12/2025 10:00 AM EDT Office Visit [facility] [address] [place] [address] Portia Maguire MD [address] [place] [address] 10/03/2025 12:45 PM EST Office Visit Medical Office Building Urology [address], [address] [place] [address] Suhail Brock MD [address] [facility] [address] [place] [address] 10/18/2025 4:20 PM EST Office Visit [facility] [employer] [place] [facility] [address] [facility], [address] [place] [address] Moustapha Katz MD [address] [facility] [address] [place] [address] documented as of this encounter [...] documented as of this encounter Care Teams Consultant In Ergonomics And Safety Relationship Specialty Start Date End Date Chris Medel MD [address] [place] [address] PCP - General 03/14/25 Ruma Hernández APRN [address] [facility] [address] [place] [address] Referring Physician Gastroenterology 07/30/23 documented as of this encounter
--- OUTSIDE RECORDS SUMMARY | 2025-08-15 07:41 | XMS_ITS | Encounter Summary ---
[facility] Address [address] [place] [address] Care Team Providers Care Direct Marketing Specialist Name Role Phone KaronUrban Hosea CAMARA Primary Care Provider [phone] Encounter Details Date Type Department Care Team (Late st Contact Info) Description 10/14/2023 Telephone [facility] GASTROENTEROLOGY 17[address] [facility] 202 [place] [address] Ruma Hernández, FINANCIAL ADVOCATE 1780 [facility] 202 [place], [place] [id number] Social History Tobacco Use Types Packs/Day Years [...] in this encounter Care Teams Direct Marketing Specialist Relationship Specialty Start Date End Date Urban Brantley DO [address] [place] [address] PCP - General Internal Medicine 03/22/23 documented as of this encounter
--- OUTSIDE RECORDS SUMMARY | 2025-08-15 07:41 | XMS_ITS | Clinical Summary ---
Author Organization [facility] Address [address] [place] [address] Care Team Providers Care Lacrosse Player Name Role Phone ToniUrban morataya DO Primary Care Provider [phone] Allergies Active Allergy Reactions Criticality Noted Date [...] 3 -dose series) 02/22/2024 12/28/2023, 06/29/2023, 06/02/2023 INFLUENZA VACCINE 06/15/2025 COLONOSCOPY 03/31/2026 03/31/2023 COLORECTAL CANCER SCREENING 03/31/2026 [...] Relevant to Health Maintenance Insurance [facility] PPO Care Teams Lacrosse Player Relationship Specialty Start Date End Date Urban Brantley DO [address] [place], [place] [id number] PCP - General Internal Medicine 03/22/23
--- OUTSIDE RECORDS SUMMARY | 2025-08-15 07:41 | XMS_ITS | Encounter Summary ---
[facility] Address [address] [place] [address] Care Team Providers Care Youth Accommodation Support Worker Name Role Phone KaronUrban Hosea CAMARA Primary Care Provider [phone] Encounter Details Date Type Department Care Team (Late st Contact Info) Description 10/14/[address] [facility] GASTROENTEROLOGY 17[address] [facility] 202 [place] [address] Ruma Hernández, RAIL SPLITTER 1780 [facility] 202 [place], [place] [address] Social History Tobacco Use Types Packs/Day Years [...] on filedocumented in this encounter Care Teams Youth Accommodation Support Worker Relationship Specialty Start Date End Date Urban Brantley DO [address] [place] [address] PCP - General Internal Medicine 03/22/23 documented as of this encounter
--- OUTSIDE RECORDS SUMMARY | 2025-08-15 07:41 | XMS_ITS | Encounter Summary ---
Author Organization Healthcare Address [address] [place] [address] Care Team Providers Care Plating Equipment Tender Name Role Phone Ruma Hernández CREDIT FRONT OFFICE DEVELOPER Unavailable Chris Medel MD Primary Care Provider [phone] Encounter Details Date Type Department Care Team [...] week 06/15/2025 How often do you attend [facility] or mosque services? More than 4 times [...] hard at all 06/15/2025 [facility] [place] of Occupat ional Health - Occupational Stress [...] drink first t luisa in the morning (EYE-ENDOSCOPIC TECHNICIAN) to steady your nerves or to [...] Description 09/12/2025 8:30 AM EDT Clinical Support [facility] Transplant Center [address] [place] [address] 09/12/2025 10:00 AM EDT Office Visit [facility] [address] [place] [address] Portia Maguire MD [address] [place] [address] 10/03/2025 12:45 PM EST Office Visit Medical Office Building Urology [facility] [address] [facility], [address] [place] [address] Suhail Brock MD [address] [facility] [address] [place] [address] 10/18/2025 4:20 PM EST Office Visit [facility] [employer] [place] [facility] [address], [address] [place] [address] Moustapha Katz MD [address] [facility] [address] [place] [address] documented as of this encounter [...] documented as of this encounter Care Teams Plating Equipment Tender Relationship Specialty Start Date End Date Chris Medel MD [address] [place] [address] PCP - General 03/14/25 Ruma Hernández APRN [address] [place] [address] [address] [place] [address] Referring Physician Gastroenterology 07/30/23 documented as of this encounter
--- OUTSIDE RECORDS SUMMARY | 2025-08-15 07:41 | XMS_ITS | Encounter Summary ---
Author Organization Healthcare Address [address] [place] [address] Care Team Providers Care Delivery And Installation Subcontractor Name Role Phone Ruma Hernández MACHINE FILLER SHREDDER Unavailable [phone] Chris Medel MD Primary Care Provider [phone] Encounter Details Date Type Department Care Team (Late st Contact Info) Description 06/14/2025 Results Follow-Up [facility] Center [address] [place] [address] Meaghan Le, RN [facility] LIVER [id number] [address] [place] [address] Social History Tobacco Use Types [...] do you attend [facility] or adventism services? More than 4 times [...] all 06/15/2025 [facility] of Occupat ional [facility] - Occupational Stress Questionnaire Answer Date Recorded [...] any time in the past 12 m 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 0 06/14/2025 CAGE Questionnaire Score 0 025 Utilities Answer Date Recorded In the past 12 months has [employer], gas, oil, or water [employer] threatened to shut off services in your [...] 09/12/2025 8:30 AM EDT Clinical Support [facility] Trans[facility] [place] [address] [facility] [address] [place] [address] 09/12/2025 10:00 AM EDT Office Visit [facility] [address] [facility] [address] [place] [address] Portia Maguire MD [address] [facility] [address] [place] [address] 10/03/2025 12:45 PM EST Office Visit Medical Office Building Urology [address] [facility], [address] [place] [address] Suhail Brock MD [address] [facility] [address] [place] [address] 10/18/2025 4:20 PM EST Office Visit [facility] [address] [facility], [address] [place] [address] Moustapha Katz MD [address] [facility] [address] [place] [address] documented as of this encounter [...] as of this encounter Care Teams Delivery And Installation Subcontractor Relationship Specialty Start Date End Date Chris Medel MD [address] [place] [address] PCP - General 03/14/25 Ruma Hernández APRN 1780 [facility] 202 [place] [address] Referring Physician Gastroenterology 07/30/23 documented as of this encounter
--- OUTSIDE RECORDS SUMMARY | 2025-08-15 07:41 | XMS_ITS | Encounter Summary ---
Author Organization Healthcare Address [address] [place] [address] Care Team Providers Care Engine Lathe Set Up Operator Tool Name Role Phone Ruma Hernández CRYOLITE RECOVERY OPERATOR Unavailable [phone] Chris Medel MD Primary Care Provider [phone] Encounter Details Date Type Department Care Team (Late st Contact Info) Description 07/19/2025 Results Follow-Up [facility] Transplant Center [address] [place] [address] Meaghan Le, RN [facility] LIVER [id number] [address] [place] [address] Social History Tobacco Use Types [...] you attend [facility] or catholic services? 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) to steady your nerves or to [...] Encounters Date Type Department Care Team ([facility] Contact Info) Description 09/12/2025 8:30 AM EDT Clinical Support [facility] Transplant Center [address] [place] [address] 09/12/2025 10:00 AM EDT Office Visit [facility] Transplant Center [address] [place] [address] Portia Maguire MD [address] [place] [address] 10/03/2025 12:45 PM EST Office Visit Medical Office Building Urology [address] [facility], [address] [place] [address] Suhail Brock MD [address] [facility] [address] [place] [address] 10/18/2025 4:20 PM EST Office Visit Professional [employer] [place] [facility] [address] [facility], [address] [place] [address] Moustapha Katz MD [address] [facility] [address] [place] [address] documented as of this [...] documented as of this encounter Care Teams Engine Lathe Set Up Operator Tool Relationship Specialty Start Date End Date Chris Medel MD [address] [place] [address] PCP - General 03/14/25 Ruma Hernández APRN 1780 [facility] [address] [place] [address] Referring Physician Gastroenterology 07/30/23 documented as of this encounter
--- OUTSIDE RECORDS SUMMARY | 2025-08-15 07:41 | XMS_ITS | Clinical Summary ---
Author Organization [facility] Address [address] [place] [address] Care Team Providers Care Fire Operations Forester Name Role Phone Ruma Hernández TEST ENGINEER Unavailable [phone] Chris Medel MD Primary Care Provider [phone] Allergies Active Allergy Reactions Criticality Noted Date Comments Lisinopril Cough Low 09/15/2021 Medications carvedilol (Coreg) 3.125 MG tabletIndicatio ns:Cirrhosis of liver with ascites, unspecified hepatic cirrhosis type Take 1 tablet (3.125 mg) by mouth 2 (two) times a day with meals. 60 tablet 11 09/13/20 24 025 Active Additional Information Patient not taking.Reported on 07/11/2025 Xifaxan 550 MG tablet Take 1 tablet by mouth 2 times a day. 01/16/20 25 Active ergocalciferol (Vitamin D-2) 1.25 MG (98258 UT) capsule Take 1 capsule by mouth 1 (one) time per week. 12 capsule 2 03/08/20 25 Active Calcium-Vitamin D (CALTRATE 600 PLUS-VIT D PO) Take 600 mg by mouth 2 times a day. Active furosemide (Lasix) 20 MG tabletIndicatio ns:Bilateral leg edema,Cirrhosis of liver with ascites, unspecified hepatic cirrhosis type,Other ascites Take 2 tablets by mouth daily. 180 tablet 3 04/30/20 25 026 Active omeprazole (PriLOSEC) [address] capsuleIndicati ons:Cirrhosis of liver with ascites, unspecified hepatic cirrhosis type Take 2 capsules by mouth daily. 180 capsule 3 03/14/20 25 026 Active spironolactone (Aldactone) 50 MG tabletIndicatio ns:Bilateral leg edema,Cirrhosis of liver with ascites, unspecified hepatic cirrhosis type,Other ascites Take 3 tablets by mouth daily. 270 each 1 06/25/20 25 026 Active calcitriol (Rocaltrol) 0.25 MCG capsule Take 1 capsule by mouth 5 times a week. Once daily Wednesday through Wednesday 20 capsule 5 08/08/20 25 Active calcitriol (Rocaltrol) 0.25 MCG capsule Take [...] Encounters Date Type Department Care Team Description 08/01/2025 Results Follow-Up [facility] [address] [place] [address] Meaghan Le RN 07/19/2025 Results Follow-Up [facility] [place] [address] [place] [address] Meaghan Le RN 07/11/2025 10:30 AM EDT Office Visit [facility] [place] [address] [place] [address] Portia Maguire MD Cirrhosis of liver with ascites, unspecified hepatic cirrhosis type (CMS/HCC) (Primary Dx); Other ascites; Pre-liver transplant, listed; Alcoholic cirrhosis, unspecified whether ascites present (CMS/HCC); Hemochromatosis associated with compound heterozygous mutation in HFE gene; Alcohol use disorder, moderate, in sustained remission 07/11/2025 9:30 AM EDT Social Work [facility] [address] [place] [phone] Liliane Jacobs, SMALL PARTS ASSEMBLER 07/11/2025 Travel 07/05/2025 Results Follow-Up [facility] [address] [address] Meaghan Le, SILVIO 06/29/2025 Results Follow-Up [facility] [address] [address] Meaghan Le, RN 06/25/2025 Telephone [facility] [address] [address] Meaghan Le, RN 06/21/2025 Results Follow-Up [facility] [address] [address] Meaghan Le, RN 06/20/2025 Telephone [facility] [address] [address] Meaghan Le, RN 06/15/2025 11:59 PM EDT Anesthesia Event [facility] OPERATING ROOM [address] [place] [address] Mary Castellon, Fanta Vizcarra, TEST ENGINEER 06/14/2025 3:47 PM EDT - 06/15/2025 6:14 PM EDT Hospital Encounter [facility] Inpatient [address] [place] [address] Luis Angel Bee MD Alcoholic cirrhosis, unspecified whether ascites present (CMS/HCC) (Primary Dx) Discharge Disposition: Home or Self Care 06/14/2025 Travel 06/14/2025 Results Follow-Up [facility] [address] [place] [address] Meaghan Le, RN 06/14/2025 Results Follow-Up [facility] [address] [facility] [address] [place] [address] Meaghan Le, RN 06/13/2025 12:57 PM EDT - 06/13/2025 11:59 PM EDT Hospital Encounter [facility] Radiology [address] [place] [address] Chris Knott RN Pre-liver transplant, listed Discharge Disposition: Home or Self Care 06/13/2025 10:36 AM EDT - 06/13/2025 12:56 PM EDT Hospital Encounter Cardiac Imaging [address] [place] [address] Pre-liver transplant, listed Discharge Disposition: Home or Self Care 06/13/2025 9:56 AM EDT - 06/13/2025 10:35 AM EDT Hospital Encounter [facility] [address] [place] [address] Alcoholic cirrhosis, unspecified whether ascites present (CMS/HCC) Discharge Disposition: Home or Self Care 06/13/2025 8:00 AM EDT Office Visit [facility] [place] [address] [address] Portia Maguire MD Alcoholic cirrhosis, [...] - 06/13/2025 9:55 AM EDT Hospital Encounter [facility] Radiology [address], [address] [place] [address] Pre-liver transplant, listed Discharge Disposition: Home or Self Care 06/13/2025 Telephone [facility] [address] [place] [address] Zeferino Trejo, PharmD 06/13/2025 Travel 06/08/2025 12:20 PM EDT Office Visit [facility] [address] , [address] [place] [address] Moustapha Katz MD Age-related osteoporosis without current pathological fracture (Primary Dx) 06/08/2025 8:35 AM EDT - 06/08/2025 11:59 PM EDT Hospital Encounter [facility] [address] , [address] [place] [address] Other osteoporosis without current pathological fracture Discharge Disposition: Home or Self Care 06/08/2025 Travel 06/07/2025 Telephone [facility] [address] , [address] [place] [address] Mary Chatman LPN 06/06/2025 Telephone [facility] [address] [place] [address] Mell Masterson RN 06/05/2025 Travel 06/05/2025 Results Follow-Up [facility] [address] [address] Meaghan eL, RN 05/22/2025 Telephone [facility] [address] [address] Meaghan Le, RN from Last 3 Months [...] week 02/19/2025 How often do you attend [facility] ch or gnosticist services? More than 4 times per year 02/19/2025 Do you belong to any clubs o r organizations such as confucianism groups, unions, [employer] or athletic groups, or school groups? [...] often do you attend chur ch or gnosticist services? More than 4 times per year [...] heating? Not hard at all 06/15/2025 [facility] [...] drink first t luisa in the morning (EYE-DYE BOX OPERATOR) to steady your nerves or to [...] Upcoming Encounters Date Type Department Care Team ([facility] st Contact Info) Description 09/12/2025 8:30 AM EDT Clinical Support [facility] [address] [facility] [address] [place] [address] 09/12/2025 10:00 AM EDT Office Visit [facility] [address] [place] [address] Portia Maguire MD [address] [facility] [address] [place] [address] 10/03/2025 12:45 PM EST Office Visit Medical Office Building Urology [address] [facility], [address] [place] [address] Suhail Brock MD [address] [facility] [address] [place] [address] 10/18/2025 4:20 PM EST Office Visit [facility] [address] [facility], [address] [place] [address] Moustapha Katz MD [address] [facility] [address] [place] [address] Health Maintenance Due Date Last [...] - Risk 60-74 years 1-dose series) 2021 [id number] Vaccine (1 - season) 2025 UKY-Influenza Vaccine [...] Diagnosis Comments COMPREHENSIVE METABOLIC PANEL, PLASMA Routine 08/01/2025 CBC W/O DIFFERENTIAL Routine 08/01/2025 PROTHROMBIN TIME(PT) / INR Routine 08/01/2025 COMPREHENSIVE METABOLIC PANEL, PLASMA Routine 07/18/2025 CBC [...] Last 3 Months Results * Prothrombin Time/INR (08/01/2025) Only the most recent of9 resultswithin the time period is included. External Prothrombin Time (PT) 18.4 External INR - Internormal Ratio 1.73 Blood Venous blood specimen / Unknown 08/01/2025 [facility] Provider LAB BLOOD ORDERABLES Final R esult * CBC W/O Differential (08/01/2025) Only the most recent of8 resultswithin the time period is included. External WBC 4.0 External Red Blood Cell (RBC) 3.03 External Hemoglobin (Hgb) 10.10 External Hematocrit (Hct) 30.7 External Platelet Count (Plt) 63 Blood Venous blood specimen / Unknown 08/01/2025 [facility] Provider LAB BLOOD ORDERABLES Final R esult * Comprehensive Metabolic Panel, Plasma (08/01/2025) Only the most recent of9 resultswithin the time period is included. External Glucose 97 External BUN 14 External Creatinine Blood 0.80 mg/dL External Sodium (Na) 137 mEq/L External Potassium (K) 3.9 External Chloride (Cl) 109 External Carbon Dioxide (CO2) 28 External Anion Gap (AG) 3.9 External Calcium (Ca) 7.8 External Total Protein 6.1 External Albumin 2.1 g/dL External AST (SGOT) 47 External ALT (SGPT) 33 External Alkaline Phosphatase 173 External Bilirubin Total 4.1 mg/dL External Estimated GFR 97 Blood Venous blood specimen / Unknown 08/01/2025 [facility] Provider LAB BLOOD ORDERABLES Final R esult * Pain Management, Quantitative Urine Drug Testing (07/11/2025 8:27 AM EDT) Only the most recent of2 resultswithin the time period is included. Alpha OH Alprazolam <20 <20 ng/mL 07/12 1:45 PM EDT [facility] Alpha OH Midazolam <20 <20 ng/mL 2024 1:45 PM EDT [facility] Alpha [place] Triazolam <20 <20 ng/mL 2024 1:45 PM EDT [facility] Alprazolam <10 <10 ng/mL 07/12/2025 1:45 PM EDT [facility] Aminoclonazepam <20 <20 ng/mL 1:45 PM EDT [facility] Amphetamine <50 <50 ng/mL 07/12/2025 1:45 PM EDT [facility] Benzoylecgonine <50 <50 ng/mL 1:45 PM EDT [facility] Buprenorphine <10 <10 ng/mL 07/12/2025 1:45 PM EDT [facility] Buprenorphine Glucuronide <50 <50 ng/mL 07/12/2025 1:45 PM EDT [facility] Butalbital <50 <50 ng/mL 07/12/2025 1:45 PM EDT [facility] 9 Carboxy THC <10 <10 ng/mL 07/12/2025 1:45 PM EDT [facility] 9 Carboxy THC Glucuronide <25 <25 ng/mL 07/12/2025 1:45 PM EDT [facility] Clonazepam <10 <10 ng/mL 07/12/2025 1:45 PM EDT [facility] Codeine <50 <50 ng/mL 07/12/2025 1:45 PM EDT [facility] Codeine Glucuronide <50 <50 ng/mL 07/12 1:45 PM EDT [facility] Cyclobenzaprine <50 <50 ng/mL 1:45 PM EDT [facility] Desmethyl Tramadol <50 <50 ng/mL 2024 1:45 PM EDT [facility] Diazepam <10 <10 ng/mL 07/12/2025 1:45 PM EDT [facility] EDDP - Methadone Metabolite <50 <50 ng/mL 07/12/2025 1:45 PM EDT [facility] Fentanyl <1 <1 ng/mL 07/12/2025 1:45 PM EDT [facility] Hydrocodone <50 <50 ng/mL 07/12/2025 1:45 PM EDT [facility] Hydromorphone <50 <50 ng/mL 07/12/2025 1:45 PM EDT [facility] Hydromorphone Glucuronide <50 <50 ng/mL 07/12/2025 1:45 PM EDT [facility] Lorazepam <20 <20 ng/mL 07/12/2025 1:45 PM EDT [facility] Lorazepam Glucuronide <50 <50 ng/mL 07/12/2025 1:45 PM EDT [facility] MDA <50 <50 ng/mL 07/12/2025 1:45 PM EDT [facility] MDMA <50 <50 ng/mL 07/12/2025 1:45 PM EDT [facility] Meperidine <50 <50 ng/mL 07/12/2025 1:45 PM EDT [facility] Methadone <50 <50 ng/mL 07/12/2025 1:45 PM EDT [facility] Methamphetamine <50 <50 ng/mL 1:45 PM EDT [facility] Methylphenidate <50 <50 ng/mL 1:45 PM EDT [facility] 6 Monoacetyl morphine <10 <10 ng/mL 07/12/2025 1:45 PM EDT [facility] Morphine <50 <50 ng/mL 07/12/2025 1:45 PM EDT [facility] Morphine Glucuronide <50 <50 ng/mL 06/16 1:45 PM EDT [facility] Naloxone <50 <50 ng/mL 07/12/2025 1:45 PM EDT [facility] Naloxone Glucuronide <50 <50 ng/mL 06/16 1:45 PM EDT [facility] Norbuprenorphine <10 <10 ng/mL 07/12/20 1:45 PM EDT [facility] Norbuprenorphine Glucuronide <50 <50 ng/mL 07/12/2025 1:45 PM EDT [facility] Nordiazepam <20 <20 ng/mL 07/12/2025 1:45 PM EDT [facility] Norfentanyl <2 <2 ng/mL 07/12/2025 1:45 PM EDT [facility] Normeperidine <50 <50 ng/mL 07/12/2025 1:45 PM EDT [facility] PCP Quant, Ur <50 <50 ng/mL 07/12/2025 1:45 PM EDT [facility] Phenobarbital <50 <50 ng/mL 07/12/2025 1:45 PM EDT [facility] Oxazepam <20 <20 ng/mL 07/12/2025 1:45 PM EDT [facility] Oxazepam Glucuronide <50 <50 ng/mL 06/16 1:45 PM EDT [facility] Oxycodone <50 <50 ng/mL 07/12/2025 1:45 PM EDT [facility] Oxymorphone <50 <50 ng/mL 07/12/2025 1:45 PM EDT [facility] Oxymorphone Glucuronide <50 <50 ng/mL 07/12/2025 1:45 PM EDT [facility] Secobarbital <50 <50 ng/mL 07/12/2025 1:45 PM EDT [facility] Tramadol <50 <50 ng/mL 07/12/2025 1:45 PM EDT [facility] Temazepam <20 <20 ng/mL 07/12/2025 1:45 PM EDT [facility] Temazepam Glucuronide <50 <50 ng/mL 07/12/2025 1:45 PM EDT [facility] Urine Urine specimen obtained by clean catch procedure / Unknown Non-blood Collection / Unknown 07/11/2025 8:27 AM EDT 07/11/2025 9:07 AM EDT Narrative [facility] - 07/12/2025 1:45 PM [...] laboratory. Test performed by LC-MS/MS at the [facility]. This test was developed and its performance characteristics determined by [facility]. It has not been cleared or approved by the FDA. The laboratory is regulated under CLIA as qualified to perform high-complexity testing. This test is used for clinical purposes. Portia Maguire MD LAB URINE ORDERABLES Nadia l Result Performing Organization Address [facility] Co de Phone Number [facility] [address] [place] [address] * Nicotine Cotinine Metabolite (07/11/2025 8:27 AM EDT) Only the most recent of2 resultswithin the time period is included. NICOTINE <5 <5 ng/mL 07/12/2025 3:1 7 PM EDT [facility] Cotinine <5 <5 ng/mL 07/12/2025 3:1 7 PM EDT [facility] Blood Venous blood specimen / Unknown Venipuncture / Unknown 07/11/2025 8:27 AM EDT 07/11/2025 8:44 AM EDT Narrative [facility] - 07/12/2025 3:17 PM EDT Testing performed by LC-MS/MS at the [facility] Special Chemistry/Toxicology Laboratory. This test was developed and its performance characteristics determined by [facility]. This assay has not been cleared by the FDA. The laboratory is regulated under CLIA as qualified to perform high-complexity testing. This test is used for clinical purposes. Portia Maguire MD LAB BLOOD ORDERABLES Nadia l Result Performing Organization Address [facility] Co de Phone Number [facility] [address] [place] [address] * Alcohol Urine (07/11/2025 8:27 AM EDT) Only the most recent of2 resultswithin the time period is included. Alcohol Urine Negative Negative 07/11/2025 1:32 PM EDT [facility] Urine Urine specimen obtained by clean catch procedure / Unknown Non-blood Collection / Unknown 07/11/2025 8:27 AM EDT 07/11/2025 9:03 AM EDT Narrative [facility] - 07/11/2025 1:32 PM EDT The correlation between urine and serum ethanol concentration is highly variable. Test performed by Gas Chromatography at the [facility]. This test was developed and its performance characteristics determined by [facility]. It has not been cleared or approved by the FDA.The laboratory is regulated under CLIA as qualified to perform high-complexity testing. This test is used for clinical purposes only. Portia Maguire MD LAB URINE ORDERABLES Nadia crockett Result [facility] [address] [place] [address] * (ABNORMAL) Comprehensive Urine Drug Screening, Qualitative Assay, >= 27 Drug Classes (58:27 AM EDT) Only the most recent of2 resultswithin the time period is included. Acetaminophen Positive(A) Negative 07/13/2025 1:39 AM EDT [facility] Alprazolam Negative Negative 07/13/2025 1:39 AM EDT [facility] Amantadine Negative Negative 07/13/2025 1:39 AM EDT [facility] Amitriptyline Negative Negative 07/13/2025 1:39 AM EDT [facility] Amphetamine Negative Negative 07/13/2025 1:39 AM EDT [facility] Atenolol Negative Negative 07/13/2025 1:39 AM EDT [facility] Benzoylecgonine Negative Negative 1:39 AM EDT [facility] Bisoprolol Negative Negative 07/13/2025 1:39 AM EDT [facility] Bupropion Negative Negative 07/13/2025 1:39 AM EDT [facility] Butalbital Negative Negative 07/13/2025 1:39 AM EDT [facility] Carbamazepine Negative Negative 07/13/2025 1:39 AM EDT [facility] Carisoprodol Negative Negative 07/13/2025 1:39 AM EDT [facility] Chlorpheniramine Negative Negative 07/13/20 1:39 AM EDT [facility] Citalopram Negative Negative 07/13/2025 1:39 AM EDT [facility] Clindamycin Negative Negative 07/13/2025 1:39 AM EDT [facility] Clonidine Negative Negative 07/13/2025 1:39 AM EDT [facility] Clopidogrel / Ticlopidine Negative Negative 07/13/2025 1:39 AM EDT [facility] Cocaethylene Negative Negative 07/13/2025 1:39 AM EDT [facility] Cocaine Negative Negative 07/13/2025 1:39 AM EDT [facility] Codeine Negative Negative 07/13/2025 1:39 AM EDT [facility] Cyclobenzaprine Negative Negative 1:39 AM EDT [facility] Desvenlafaxine Negative Negative 07/13/2025 1:39 AM EDT [facility] Dextromethorphan Negative Negative 07/13/20 1:39 AM EDT [facility] Diazepam Negative Negative 07/13/2025 1:39 AM EDT [facility] Diltiazem Negative Negative 07/13/2025 1:39 AM EDT [facility] Diphenhydramine Negative Negative 1:39 AM EDT [facility] Doxepine Negative Negative 07/13/2025 1:39 AM EDT [facility] Doxylamine Negative Negative 07/13/2025 1:39 AM EDT [facility] EDDP-Methadone metabolite Negative Negative 07/13/2025 1:39 AM EDT [facility] Fentanyl Negative Negative 07/13/2025 1:39 AM EDT [facility] Fluconazole Negative Negative 07/13/2025 1:39 AM EDT [facility] Fluoxetine Negative Negative 07/13/2025 1:39 AM EDT [facility] Guaifenesin Negative Negative 07/13/2025 1:39 AM EDT [facility] Haloperidol Negative Negative 07/13/2025 1:39 AM EDT [facility] Heroin/6-MARY Negative Negative 07/13/2025 1:39 AM EDT [facility] Hydrocodone Negative Negative 07/13/2025 1:39 AM EDT [facility] Hydroxyzine / Cetirizine metabolite Negative Negative 07/13/2025 1:39 AM EDT [facility] Ibuprofen Negative Negative 07/13/2025 1:39 AM EDT [facility] Imipramine Negative Negative 07/13/2025 1:39 AM EDT [facility] Ketamine Negative Negative 07/13/2025 1:39 AM EDT [facility] Labetolol Negative Negative 07/13/2025 1:39 AM EDT [facility] Lamotrigine Negative Negative 07/13/2025 1:39 AM EDT [facility] Levetiracetam Negative Negative 07/13/2025 1:39 AM EDT [facility] Lidocaine Negative Negative 07/13/2025 1:39 AM EDT [facility] MDA Negative Negative 07/13/2025 1:39 AM EDT [facility] MDMA Negative Negative 07/13/2025 1:39 AM EDT [facility] Memantine Negative Negative 07/13/2025 1:39 AM EDT [facility] Meperidine Negative Negative 07/13/2025 1:39 AM EDT [facility] Meprobamate Negative Negative 07/13/2025 1:39 AM EDT [facility] Metaxalone Negative Negative 07/13/2025 1:39 AM EDT [facility] Methamphetamine Negative Negative 1:39 AM EDT [facility] Methocarbamol Negative Negative 07/13/2025 1:39 AM EDT [facility] Methylecgonine Negative Negative 07/13/2025 1:39 AM EDT [facility] Metoclopramide Negative Negative 07/13/2025 1:39 AM EDT [facility] Metoprolol Negative Negative 07/13/2025 1:39 AM EDT [facility] Metronidazole Negative Negative 07/13/2025 1:39 AM EDT [facility] Midazolam Negative Negative 07/13/2025 1:39 AM EDT [facility] Midazolam Metabolite Negative Negative 07/13/2025 1:39 AM EDT [facility] Mirtazapine Negative Negative 07/13/2025 1:39 AM EDT [facility] Misc Test Result Negative Negative 07/13/20 1:39 AM EDT [facility] Naproxen Negative Negative 07/13/2025 1:39 AM EDT [facility] Nefazodone Negative Negative 07/13/2025 1:39 AM EDT [facility] Norfentanyl Negative Negative 07/13/2025 1:39 AM EDT [facility] Nortriptyline Negative Negative 07/13/2025 1:39 AM EDT [facility] Ordanstron Negative Negative 07/13/2025 1:39 AM EDT [facility] [facility] Oxcarbazepine Negative Negative 07/13/2025 1:39 AM EDT [facility] Oxycodone Negative Negative 07/13/2025 1:39 AM EDT [facility] Paroxethine Negative Negative 07/13/2025 1:39 AM EDT [facility] Phenobarbital Negative Negative 07/13/2025 1:39 AM EDT [facility] Phentermine Negative Negative 07/13/2025 1:39 AM EDT [facility] Phenytoin Negative Negative 07/13/2025 1:39 AM EDT [facility] Primidone Negative Negative 07/13/2025 1:39 AM EDT [facility] Promethazine Negative Negative 07/13/2025 1:39 AM EDT [facility] Propofol Negative Negative 07/13/2025 1:39 AM EDT [facility] Propranolol Negative Negative 07/13/2025 1:39 AM EDT [facility] Quetiapine Negative Negative 07/13/2025 1:39 AM EDT [facility] Quinine Negative Negative 07/13/2025 1:39 AM EDT [facility] Rantidine Negative Negative 07/13/2025 1:39 AM EDT [facility] Sertraline Negative Negative 07/13/2025 1:39 AM EDT [facility] Spironolactone Positive(A) Negative 1:39 AM EDT [facility] Tizanidine Negative Negative 07/13/2025 1:39 AM EDT [facility] Topiramate Negative Negative 07/13/2025 1:39 AM EDT [facility] Tramadol Negative Negative 07/13/2025 1:39 AM EDT [facility] Trazadone/ Trazadone metabolite Negative Negative 07/13/2025 1:39 AM EDT [facility] Trimethoprim Negative Negative 07/13/2025 1:39 AM EDT [facility] Valproic Acid Negative Negative 07/13/2025 1:39 AM EDT [facility] Venlafaxine Negative Negative 07/13/2025 1:39 AM EDT [facility] Verapamil Negative Negative 07/13/2025 1:39 AM EDT [facility] Zolpidem Negative Negative 07/13/2025 1:39 AM EDT [facility] Xylazine Negative Negative 07/13/2025 1:39 AM EDT [facility] Urine Urine specimen obtained by clean catch procedure / Unknown Non-blood Collection / Unknown 07/11/2025 8:27 AM EDT 07/11/2025 9:07 AM EDT us Portia Maguire MD LAB URINE ORDERABLES Nadia l Result Performing Organization Address City/State/[facility] Co de Phone Number [facility] [address] [place] [address] * ECG Adult (06/15/2025 10:35 AM EDT) EKG DIAGNOSIS CLASS Abnormal MUSE ECG Ventricular Rate 65 BPM MUSE ECG Atrial Rate 65 BPM MUSE ECG MN Interval 162 ms MUSE ECG QRSD Interval 86 ms MUSE ECG QT Interval 446 ms MUSE ECG QTC Interval 463 ms MUSE ECG P Farrell 4 degrees MUSE ECG R Farrell 58 degrees MUSE ECG T Wave Farrell 22 degrees MUSE ECG Diagnosis Normal sinus [...] by PCR (06/14/2025 6:47 PM EDT) Pathologist [facility] Leticia auris PCR Result Not Detected Not Detected 06/18/2025 5:43 AM EDT [facility] Swab (Axilla and Groin) Non-blood Collection / Unknown 06/14/2025 6:47 PM EDT 06/14/2025 7:49 PM EDT Narrative [facility] - 06/18/2025 5:43 AM EDT This PCR assay was developed and its performance characteristics determined by [facility] as appropriate for clinical purposes. This assay has not been cleared or approved by the FDA, but is performed in a CLIA regulated laboratory that is qualified to perform high-complexity testing. Luis Angel Bee MD LAB MICROBIOLOGY - GENERA L ORDERABLES Final Result Performing Organization Address City/[facility]/ZIP Co de Phone Number [facility] [address] [place] [address] * SARS CoV-2/COVID-19 by PCR - Rapid (06/14/2025 6:47 PM EDT) Pathologist [facility] SARS CoV-2/COVID-1 9 RNA PCR Result Not Detected Not Detected 06/14/2025 8:35 PM EDT [facility] Swab Nasopharyngeal structure / Unknown Non-blood Collection / Unknown 06/14/2025 6:47 PM EDT 06/14/2025 7:49 PM EDT Narrative [facility] - 06/14/2025 8:35 PM [...] L ORDERABLES Final Result Performing Organization Address [facility]/[place] [address] * (ABNORMAL) Hepatitis B Surface Antibody, Quantitative (06/14/2025 6:31 PM EDT) Hepatitis B Surface Antibody, Quantitative 34.47(H) NonReacti ve: <8, Grayzone: 8 - <12, Reactive: >= 12 mIU/mL 06/14/2025 8:18 PM EDT [facility] Comment: Reactive. Individual is considered immune to HBV infection. Blood Venous blood specimen / Unknown Venipuncture / Unknown 06/14/2025 6:31 PM EDT 06/14/2025 7:05 PM EDT us Luis Angel Bee MD LAB BLOOD ORDERABLES Nadia l Result Performing Organization Address [facility]/ZIP Co de Phone Number [facility] [address] [place] [address] * Light Green Top (06/14/2025 6:31 PM EDT) Extra Hold for add-ons 06/14/2025 11:01 PM EDT [facility] Comment:Auto resulted. Blood Venous blood specimen / Unknown 06/14/2025 6:31 PM EDT 06/14/2025 8:12 PM EDT us Luis Angel Bee MD LAB BLOOD ORDERABLES Nadia l Result Performing Organization Address City/[facility]/ZIP Co de Phone Number [facility] [address] [place] [address] * Red Top (06/14/2025 6:31 PM EDT) Pathologist [facility] Extra Hold for add-ons 06/14/2025 11:01 PM EDT [facility] Comment:Auto resulted. Blood Venous blood specimen / Unknown 06/14/2025 6:31 PM EDT 06/14/2025 8:12 PM EDT Luis Angel Bee MD LAB BLOOD ORDERABLES Nadia l Result Performing Organization Address [facility] Co de Phone Number [facility] [address] [place] [address] * Hepatitis C Virus (HCV) Quantitative PCR (06/14/2025 6:31 PM EDT) [facility] Hepatitis C Virus (HCV) Quantitative Interpretation Not Detected Not Detected. 06/18/2025 10:15 PM EDT [facility] Blood Venous blood specimen / Unknown Venipuncture / Unknown 06/14/2025 6:31 PM EDT 06/15/2025 8:51 AM EDT Narrative [facility] - 06/18/2025 10:15 PM [...] ORDERABLES Nadia l Result Performing Organization Address [facility] [place] [address] * HIV 1 & 2 Antibody/Antigen Screen (06/14/2025 6:31 PM EDT) HIV 1 & 2 Antibody/Antigen Screen Non Reactive Non Reactive 06/14/2025 7:45 PM EDT [facility] Comment:Screening for HIV 1 & 2 antibodies, and P24 antigen is NONREACTIVE. No confirmatory testing is required. Blood Venous blood specimen / Unknown Venipuncture / Unknown 06/14/2025 6:31 PM EDT 06/14/2025 7:05 PM EDT us Luis Angel Bee MD LAB BLOOD ORDERABLES Nadia l Result Performing Organization Address City/[facility]/ZIP Co de Phone Number [facility] [address] [place] [address] * Hepatitis C Antibody (06/14/2025 6:31 PM EDT) Hepatitis C Antibody Negative Negative 06/14/2025 7:45 PM EDT [facility] Blood Venous blood specimen / Unknown Venipuncture / Unknown 06/14/2025 6:31 PM EDT 06/14/2025 7:05 PM EDT Result Neto Bee MD LAB BLOOD ORDERABLES Nadia l Result Performing Organization Address City/[facility]/ZIP Co de Phone Number [facility] [address] [place] [address] * Hepatitis B Core Total Antibody IgG,IgM (06/14/2025 6:31 PM EDT) Pathologist [facility] Hepatitis B Core Total Antibody IgG,IgM Negative Negative 06/14/2025 8:18 PM EDT [facility] Blood Venous blood specimen / Unknown Venipuncture / Unknown 06/14/2025 6:31 PM EDT 06/14/2025 7:05 PM EDT Result Neto Bee MD LAB BLOOD ORDERABLES Nadia l Result Performing Organization Address City/[facility]/ZIP Co de Phone Number [facility] [address] [place] [address] * (ABNORMAL) Vitamin D 25 Hydroxy (06/14/2025 6:31 PM EDT) Only the most recent of2 resultswithin the time period is included. [facility] Vitamin D 25 Hydroxy 10.8(L) 20.0 - 80.0 ng/mL 06/14/2025 8:19 PM EDT [facility] Blood Venous blood specimen / Unknown Venipuncture / Unknown 06/14/2025 6:31 PM EDT 06/14/2025 7:05 PM EDT Narrative [facility] - 06/14/2025 8:19 PM EDT Testing performed on [employer], standardized against NIST SRM 2972. When testing [...] MD LAB BLOOD ORDERABLES Nadia l Result [facility] [address] [place] [address] * Hepatitis B Surface Antigen (06/14/2025 6:31 PM EDT) [facility] Hepatitis B Surf Antigen Negative Negative 06/14/2025 8:18 PM EDT [facility] Blood Venous blood specimen / Unknown Venipuncture / Unknown 06/14/2025 6:31 PM EDT 06/14/2025 7:05 PM EDT us Luis Angel Bee MD LAB BLOOD ORDERABLES Nadia l Result [facility] [address] [place] [address] * Cytomegalovirus Antibody IgG (06/14/2025 6:31 PM EDT) [facility] CMV ANTIBODY IGG <0.20 <=0.59 U/mL 06/16/2025 9:07 PM EDT [facility] ([place]) Blood Venous blood specimen / Unknown Venipuncture / Unknown 06/14/2025 6:31 PM EDT 06/14/2025 7:05 PM EDT Narrative [facility] BILL) - 06/16/2025 9:07 PM EDT [...] laboratory at the same time. Performed By: [facility] [address] [place] [id number] Compensation Intern: Balwinder Wadsworth MD, PhD CLIA Number: [id number] Luis Angel Bee MD LAB BLOOD ORDERABLES Nadia l Result [facility] [employer] [facility]) [address] [place] [address] * (ABNORMAL) APTT (06/14/2025 6:31 PM EDT) [facility] aPTT 47(H) 25 - 35 sec LAB COAGULATION METHOD 06/14/2025 7:23 PM EDT [facility] Blood Venous blood specimen / Unknown Venipuncture / Unknown 06/14/2025 6:31 PM EDT 06/14/2025 7:05 PM EDT us Luis Angel Bee MD LAB BLOOD ORDERABLES Nadia bon Result [facility] [address] [place] [address] * (ABNORMAL) CBC and Differential (06/14/2025 6:31 PM EDT) WBC Count 7.95 3.70 - 10.30 10*3/uL LAB HEMATOLOGY METHOD 06/14/2025 7:24 PM EDT [facility] RBC Count 2.90(L) 4.60 - 6.10 10*6/uL LAB HEMATOLOGY METHOD 06/14/2025 7:24 PM EDT [facility] HGB 10.1(L) 13.7 - 17.5 g/dL LAB HEMATOLOGY METHOD 06/14/2025 7:24 PM EDT [facility] HCT 29.7(L) 40.0 - 51.0 % LAB HEMATOLOGY METHOD 06/14/2025 7:24 PM EDT [facility] Platelet Count 56(L) 155 - 369 10*3/uL LAB HEMATOLOGY METHOD 06/14/2025 7:24 PM EDT [facility] MCV 102(H) 79 - 98 fL LAB HEMATOLOGY METHOD 06/14/2025 7:24 PM EDT [facility] MCH 34.8(H) 26.0 - 32.0 pg LAB HEMATOLOGY METHOD 06/14/2025 7:24 PM EDT [facility] MCHC 34.0 30.7 - 35.5 g/dL LAB HEMATOLOGY METHOD 06/14/2025 7:24 PM EDT [facility] RDW 16.9(H) 11.5 - 14.5 % LAB HEMATOLOGY METHOD 06/14/2025 7:24 PM EDT [facility] MPV 11.5 8.8 - 12.5 fL LAB HEMATOLOGY METHOD 06/14/2025 7:24 PM EDT [facility] nRBC 0.0 <=0.0 per 100 WBCs LAB HEMATOLOGY METHOD 06/14/2025 7:24 PM EDT [facility] Differential Type Automated LAB HEMATOLOGY METHOD 06/14/2025 7:24 PM EDT [facility] Neutrophils % 56 % LAB HEMATOLOGY METHOD 06/14/2025 7:24 PM EDT [facility] Lymphocytes % 25 % LAB HEMATOLOGY METHOD 06/14/2025 7:24 PM EDT [facility] Monocytes % 13 % LAB HEMATOLOGY METHOD 06/14/2025 7:24 PM EDT [facility] Eosinophils % 4 % LAB HEMATOLOGY METHOD 06/14/2025 7:24 PM EDT [facility] Basophils % 1 % LAB HEMATOLOGY METHOD 06/14/2025 7:24 PM EDT [facility] Immature Granulocytes % 1 % LAB HEMATOLOGY METHOD 06/14/2025 7:24 PM EDT [facility] Neutrophils Absolute 4.56 1.60 - 6.10 10*3/uL LAB HEMATOLOGY METHOD 06/14/2025 7:24 PM EDT [facility] Lymphocytes Absolute 1.97 1.20 - 3.90 10*3/uL LAB HEMATOLOGY METHOD 06/14/2025 7:24 PM EDT [facility] Monocytes Absolute 1.03(H) 0.30 - 0.90 10*3/uL LAB HEMATOLOGY METHOD 06/14/2025 7:24 PM EDT [facility] Eosinophils Absolute 0.31 0.00 - 0.50 10*3/uL LAB HEMATOLOGY METHOD 06/14/2025 7:24 PM EDT [facility] Basophils Absolute 0.04 0.00 - 0.10 10*3/uL LAB HEMATOLOGY METHOD 06/14/2025 7:24 PM EDT [facility] Immature Granulocytes Absolute 0.04 0.00 - 0.06 10*3/uL LAB HEMATOLOGY METHOD 06/14/2025 7:24 PM EDT [facility] Blood Venous blood specimen / Unknown Venipuncture / Unknown 06/14/2025 6:31 PM EDT 06/14/2025 7:06 PM EDT [facility] - 06/14/2025 7:24 PM EDT Therapeutic decision making should be based on absolute values, rather than percentages. us Luis Angel Bee MD LAB BLOOD ORDERABLES Nadia l Result [facility] [address] [place] [address] * Type and screen (06/14/2025 6:31 PM [...] ORDER MARYA Final Result Performing Organization Address [facility] Co de Phone Number BLOOD BANK [address] [place] [address], [place] * CT Angio Cardiac Coronary Arteries (06/13/2025 [...] source 192 MDCT scanner ([employer] Force, [employer]) was used for data acquisition. A [...] source 192 MDCT scanner ([employer] Force, [employer])was used for data acquisition. A non-contrast [...] with the final edited report. Drafted by Adien Christine MD on 06/13/2025 3:48 PM Final report signed by Yamini Martins MD on 06/13/2025 10:38 PM [facility] IM CT PROCEDURES Final Result * ECHO, ADULT [...] are based on Ultrasound LI-RADS version 2017. [email or web address] CRITICAL RESULT: No. COMMUNICATION: Per [...] recommendations are based on UltrasoundLI-RADS version 2017. [email or web address] -[email or web address] CRITICAL RESULT: No. COMMUNICATION: Per [...] - 20.1 ug/L 06/13/2025 9:09 AM EDT [facility] Comment:Test performed at [facility] Laboratory. Blood Venous blood specimen / Unknown Venipuncture / Unknown 06/13/2025 6:50 AM EDT 06/13/2025 7:24 AM EDT Moustapha Katz MD LAB REF LAB BLOOD AND FLUID OR D Final Result [facility] [address] [place] [address] * C-Telopeptide (06/13/2025 6:50 AM EDT) C Telopeptide Beta Cross Linked Serum Result 397 132 - 752 pg/mL 06/14/2025 9:07 PM EDT [facility] ([employer]) Blood Venous blood specimen / Unknown Venipuncture / Unknown 06/13/2025 6:50 AM EDT 06/13/2025 7:25 AM EDT Narrative [facility] ([place]) - 06/14/2025 9:07 PM EDT REFERENCE INTERVAL: C-Telopeptide, Mscp-Ejckj-Ostpbb, Serum Access complete set of age- and/or gender-specific reference intervals for this test in the [facility] Test Directory ([employer]). Performed By: [facility] [address] [place] [address] Compensation Intern: Balwinder Wadsworth MD, PhD CLIA Number: [id number] Moustapha Katz MD LAB BLOOD ORDERABLES Final Res ult [facility] [employer]) [address] [id number] * Osteocalcin by ECIA (06/13/2025 6:50 AM EDT) OSTEOCALCIN BY [facility]IA 8 8 - 36 ng/mL 06/15/2025 12:10 AM EDT [facility] [facility] ([place]) Blood Venous blood specimen / Unknown Venipuncture / Unknown 06/13/2025 6:50 AM EDT 06/13/2025 7:58 AM EDT Narrative [facility]) - 06/15/2025 12:10 AM EDT INTERPRETIVE INFORMATION: Osteocalcin by ECIA In patients with renal failure, the osteocalcin result may be directly elevated, due to impaired clearance, and/or indirectly elevated due to renal osteodystrophy. Access complete set of age- and/or gender-specific reference intervals for this test in the [employer] [facility] Test Directory (SoftRun). Performed By: [facility] [address] [place] [address] Compensation Intern: Balwinder Wadsworth MD, PhD CLIA Number: [id number] Moustapha Katz MD LAB BLOOD ORDERABLES Final Res ult Performing Organization Address [facility] de Phone Number [facility] [employer]) [address] [place] [address] * Vitamin D 1,25 Dihydroxy (06/13/2025 6:50 AM EDT) VITAMIN D, 1, 25-DIHYDROXY 43.7 19.9 - 79.3 pg/mL 06/13/2025 12:37 PM EDT [facility] Blood Venous blood specimen / Unknown Venipuncture / Unknown 06/13/2025 6:50 AM EDT 06/13/2025 7:25 AM EDT Moustapha Katz MD LAB BLOOD ORDERABLES Final Res ult Performing Organization Address City/[facility] Co de Phone Number [facility] [address] [place] [address] * Phosphorus, Plasma (06/13/2025 6:50 AM EDT) Phosphorus, Plasma 3.5 2.5 - 4.5 mg/dL 06/13/2025 7:56 AM EDT [facility] Blood Venous blood specimen / Unknown Venipuncture / Unknown 06/13/2025 6:50 AM EDT 06/13/2025 7:25 AM EDT Moustapha Katz MD LAB BLOOD ORDERABLES Final Res ult Performing Organization Address City/[facility] Co de Phone Number [facility] [address] [place] [address] * Dexa Bone Density (06/08/2025 8:35 AM EDT) Anatomical Region Laterality Modality L-spine Radiographic Liseth ging Narrative 06/17/2025 10:07 PM EDT [facility] [address] [address] [facility], [place] [address] DXA Bone Densitometry Report: [06/08/2025] BMD test performed using the [employer] DXA System (analysis version: 14.10) manufactured by [employer]. REFERRING PROVIDER: Dr. Moustapha Katz MD CLINICAL [...] Documents on File Type Date Recorded Patient Warehouse Lead Expl anation Power of Political Reporter 07/11/2025 POA / Trudy ng Will Care Teams Fire Operations Forester Relationship Specialty Start Date End Date Chris Medel MD [address] [place] [address] PCP - General 03/14/25 Ruma Hernández APRN [address] [facility] [address] [place] [address] Referring Physician Gastroenterology 07/30/23
--- OUTSIDE RECORDS SUMMARY | 2025-08-15 07:41 | XMS_ITS | Encounter Summary ---
Author Organization Healthcare Address [address] [place] [address] Care Team Providers Care Environmental Specialist Name Role Phone Ruma Hernández SPONGE PRESS OPERATOR Unavailable [phone] Chris Medel MD Primary Care Provider [phone] Encounter Details Date Type Department Care Team (Late st Contact Info) Description 06/25/2025 Telephone [facility] [address] [place] [address] Meaghan Le, RN [facility] [id number] [address] [place] [address] Social History Tobacco Use Types [...] week 02/19/2025 How often do you attend [facility] or islam services? More than 4 times per year 02/19/2025 Do you belong to any clubs o r organizations such as scientologist groups, unions, [employer] or athletic groups, or school groups? Yes [...] and heating? Not hard at all 06/15/2025 [facility] - [...] drink first t luisa in the morning (EYE-VEHICLE AND EQUIPMENT CLEANER) to steady your nerves or to get rid of a hangover? 0 06/14/2025 CAGE Questionnaire Score 0 025 Utilities Answer Date Recorded In the past 12 months has e [employer], gas, oil, or water [employer] threatened to shut off services in your [...] Description 09/12/2025 8:30 AM EDT Clinical Support [facility] [address] [place] [address] 09/12/2025 10:00 AM EDT Office Visit [facility] [place] [address] [place] [address] Portia Maguire MD [address] [place] [address] 10/03/2025 12:45 PM EST Office Visit Medical Office Building Urology [address] [place] [address] Suhail Brock MD [address] [facility] [address] [place] [address] 10/18/2025 4:20 PM EST Office Visit [facility] [address] [facility], [address] [place] [address] Moustapha Katz MD [address] [facility] [address] [place] [address] documented as of this encounter Visit Diagnoses Diagnosis Bilateral leg edema Edema Cirrhosis of liver with ascites, unspecified hepatic cirrhosis type Other ascites documented in this encounter Additional Health Concerns Assessment Noted Time PHQ-9 Depression Total Score: 0 10/04/20 12:32 PM EST A fall risk assessment has been complete d for the patient 06/13/2025 7:34 AM EDT A Body Mass Index follow-up plan has been documented for the patient 06/15/2025 5:41 PM EDT documented as of this encounter Care Teams Environmental Specialist Relationship Specialty Start Date End Date Chris Medel MD [address] [place] [address] PCP - General 03/14/25 Ruma Hernández APRN [address] [facility] [address] [place] [address] Referring Physician Gastroenterology 07/30/23 documented as of this encounter
--- OUTSIDE RECORDS SUMMARY | 2025-08-15 07:41 | XMS_ITS | Encounter Summary ---
Author Organization Healthcare Address [address] [place] [address] Care Team Providers Care Optometry Assistant Name Role Phone Ruma Hernández FLAT POLISHER Unavailable Chris Medel MD Primary Care Provider [phone] Encounter Details Date Type Department Care Team (Late st Contact Info) Description 06/13/2025 Telephone [facility] [address] [place] [address] Zeferino Trejo, PharmD Social History [...] any clubs o r organizations such as jew groups, unions, fraternal or athletic groups, or [...] How often do you attend [facility] or congregational services? More than 4 times per year 06/15/2025 Do you belong to any clubs o r organizations such as jew groups, unions, fraternal or athletic groups, or [...] and heating? Not hard at all 06/15/2025 [facility]at [facility] - Occupational Stress Questionnaire Answer [...] in the past 12 m [facility], were you homeless or living [...] drink first t luisa in the morning (EYE-SOLE DYER) to steady your nerves or to get rid of a hangover? 0 06/14/2025 CAGE Questionnaire Score 0 025 Utilities Answer Date Recorded In the past 12 months has th e [email or web address], gas, oil, or water [employer] threatened to shut off services in your [...] Miscellaneous Notes * Addendum Note - Suraj Bosch PharmD - 08/08/2025 1:50 PM EDTAddended by: SURAJ BOSCH on: 08/08/2025 01:50 PM Modules accepted: Orders * Addendum Note - Suraj Bosch PharmD - 07/27/2025 9:07 AM EDTAddended by: SURAJ BOSCH on: 07/27/2025 09:07 AM Modules accepted: Orders documented in this encounter Plan of Treatment Upcoming Encounters Date Type Department Care Team (Late st Contact Info) Description 09/12/2025 8:30 AM EDT Clinical Support [facility] Trans[facility] Center [address] [place] [address] 09/12/2025 10:00 AM EDT Office Visit [facility] [address] [place] [address] Portia Maguire MD [address] [place] [address] 10/03/2025 12:45 PM EST Office Visit Medical Office Building Urology [address] [facility], [address] [place] [address] Suhail Brock MD [address] [place] [address] 10/18/2025 4:20 PM EST Office Visit [facility] [employer] [facility] Bone & Mineral Metabolism [address], [address] [place] [address] Moustapha Katz MD [address] [place] [address] documented as of this encounter [...] documented as of this encounter Care Teams Optometry Assistant Relationship Specialty Start Date End Date Chris Medel MD [address] [place] [address] PCP - General 03/14/25 Ruma Hernández APRN [address] [facility] [address] [place] [address] Referring Physician Gastroenterology 07/30/23 documented as of this encounter
--- OUTSIDE RECORDS SUMMARY | 2025-08-15 07:41 | XMS_ITS | Encounter Summary ---
Author Organization [facility] Address [address] [place] [address] Care Team Providers Care Generation Technologist Name Role Phone Unavailable Primary Care Provider [...] release of HIV test results or diagnoses. [id number] Health Encounter Details Date Type Department Care Team (Late st Contact Info) Description 07/31/2025 Telephone [facility] Liver Transplant at [address] [address] Chapito Alcantar RN Social History Tobacco Use [...] patient's spouse. Patient has been listed at [facility] [employer] for over a year and is inquiring [...]
--- OUTSIDE RECORDS SUMMARY | 2025-08-15 07:41 | XMS_ITS | Encounter Summary ---
Author Organization Healthcare Address [address] [place] [address] Care Team Providers Care Contact Lens Edge Buffer Name Role Phone Ruma Hernández LIQUEFACTION SUPERVISOR Unavailable [phone] Chris Medel MD Primary Care Provider [phone] Encounter Details Date Type Department Care Team (Late st Contact Info) Description 05/01/2025 Results Follow-Up [facility] Transplant Center [address] [place] [address] Meaghan Le, RN [facility] LIVER [id number] [address] [place] [address] Social History Tobacco Use Types [...] often do you attend [facility] or hinduism services? More than 4 times per year 02/19/2025 Do you belong to any clubs o r organizations such as pentecostalism groups, unions, [employer] or athletic groups, or school groups? Yes [...] How often do you attend chur or hinduism services? More than 4 times [...] heating? Not hard at all 06/15/2025 [facility] of Occupat ional Health - [...] first t luisa in the morning (EYE-MANAGER RECOVERY) to steady your nerves or to get rid of a hangover? 0 06/14/2025 CAGE Questionnaire Score 0 025 Utilities Answer Date Recorded In the past 12 months has th e [employer], gas, oil, or water company threatened to [...] 09/12/2025 8:30 AM EDT Clinical Support [facility] Trans[facility] [address] [place] [address] 09/12/2025 10:00 AM EDT Office Visit [facility] [address] [place] [address] Portia Maguire MD [address] [place] [address] 10/03/2025 12:45 PM EST Office Visit Medical Office Building Urology [address] [facility], [address] [place] [address] Suhail Brock MD [address] [place] [address] 10/18/2025 4:20 PM EST Office Visit [facility] [address] [place] [address] Moustapha Katz MD [address] [place] [address] documented as of this [...] documented as of this encounter Care Teams Contact Lens Edge Buffer Relationship Specialty Start Date End Date Chris Medel MD [address] [place] [address] PCP - General 03/14/25 Ruma Hernández APRN [address] [place] [address] Referring Physician Gastroenterology 07/30/23 documented as of this encounter
--- OUTSIDE RECORDS SUMMARY | 2025-08-15 07:41 | XMS_ITS | Encounter Summary ---
Author Organization Healthcare Address [address] [place] [address] Care Team Providers Care Residential Team Leader Name Role Phone Ruma Hernández BOOK CANVASSER Unavailable [phone] Chris Medel MD Primary Care Provider [phone] Encounter Details Date Type Department Care Team (Late st Contact Info) Description 07/05/2025 Results Follow-Up [facility] Transplant Center [address] [place] [address] Meaghan Le, RN [facility] LIVER [id number] [address] [place] [address] Social History Tobacco Use Types [...] How often do you attend [facility] or gnosticism services? More than 4 [...] and heating? Not hard at all 06/15/2025 [facility] of Occupat ional [facility] - Occupational Stress Questionnaire Answer [...] drink first t luisa in the morning (EYE-SERVICE AIDE) to steady your nerves or to get rid of a hangover? 0 06/14/2025 CAGE Questionnaire Score 0 025 Utilities Answer Date Recorded In the past 12 months has th [employer], gas, oil, or water [email or web address] threatened to shut off services in your [...] Description 09/12/2025 8:30 AM EDT Clinical Support [facility] Transplant [place] [address] [facility] [address] [place] [address] 09/12/2025 10:00 AM EDT Office Visit [facility] Transplant [place] [address] [place] [address] Portia Maguire MD [address] [facility] [address] [place] [address] 10/03/2025 12:45 PM EST Office Visit Medical Office Building Urology [address] [facility], [address] [place] [address] Suhail Brock MD [address] [facility] [address] [place] [address] 10/18/2025 4:20 PM EST Office Visit [facility] [address] [facility], [address] [place] [address] Moustapha Katz MD [address] [facility] [address] [place] [address] documented as of this encounter [...] documented as of this encounter Care Teams Residential Team Leader Relationship Specialty Start Date End Date Chris Medel MD [address] [place] [address] PCP - General 03/14/25 Ruma Hernández APRN [address] [place] [address] Referring Physician Gastroenterology 07/30/23 documented as of this encounter
--- OUTSIDE RECORDS SUMMARY | 2025-08-15 07:42 | XMS_ITS | Encounter Summary ---
Author Organization Healthcare Address [address] [place] [address] Care Team Providers Care Special Education Teachers Name Role Phone Ruma Hernández TOUCH UP CARVER Unavailable [phone] Chris Medel MD Primary Care Provider [phone] Encounter Details Date Type Department Care Team (Late st Contact Info) Description 06/06/2025 Telephone [facility] [address] [place] [address] Mell Masterson, RN [facility]-DIAGNOSTIC RADIOLOGY Social History [...] week 02/19/2025 How often do you attend [facility] or yarsanism services? More than 4 times [...] week 06/15/2025 How often do you attend [facility] or yarsanism services? More than 4 times [...] and heating? Not hard at all 06/15/2025 [facility] of Occupat ional Health - Occupational Stress [...] drink first t luisa in the morning (EYE-FRICTION SAW OPERATOR) to steady your nerves or to get rid of a hangover? 0 06/14/2025 CAGE Questionnaire Score 0 025 Utilities Answer Date Recorded In the past 12 months has th e [employer], gas, oil, or water company threatened to [...] Description 09/12/2025 8:30 AM EDT Clinical Support [facility] [place] [address] [facility] [address] [place] [address] 09/12/2025 10:00 AM EDT Office Visit [facility] [place] [address] [facility] [address] [place] [address] Portia Maguire MD [address] [facility] [address] [place] [address] 10/03/2025 12:45 PM EST Office Visit Medical Office Building Urology [address] [facility], [address] [place] [address] Suhail Brock MD [address] [facility] [address] [place] [address] 10/18/2025 4:20 PM EST Office Visit [facility] [place] Bone & Mineral Metabolism [address] [facility], [address] [place] [address] Moustapha Katz MD [address] [facility] [address] [place] [address] documented as of this [...] documented as of this encounter Care Teams Special Education Teachers Relationship Specialty Start Date End Date Chris Medel MD [address] [place] [address] PCP - General 03/14/25 Ruma Hernández APRN [address] [address] Referring Physician Gastroenterology 07/30/23 documented as of this encounter
--- OUTSIDE RECORDS SUMMARY | 2025-08-15 07:42 | XMS_ITS | Encounter Summary ---
Author Organization Healthcare Address [address] [place] [address] Care Team Providers Care Field Nurse Name Role Phone Ruma Hernández LAB ASSOCIATE Unavailable [phone] Chris Medel MD Primary Care Provider [phone] Reason for Referral * Imaging (Routine) - Pending Review Specialty Diagnoses / Procedures Referred By Gianna reyes Referred To Contact Radiology Diagnoses Pre-liver transplant, listed Procedures US Guided Abdominal Paracentesis Consult to Interventional Radiology Portia Maguire MD [address] [facility] [address] [place] [address] Phone: tel: fax: Referral ID Status Reason Start Date Expiration Date V isits Requested Visits Authorized [id number] Pending Review 06/20/2025 12/20/2026 1 1 Encounter Details Date Type Department Care Team (Late st Contact Info) Description 06/20/2025 Telephone [facility] Transplant Center [address] [facility] [address] [place] [address] Meaghan Le, RN HOSPITAL LIVER [id number] [address] [place] [address] Social History Tobacco Use Types [...] first t luisa in the morning (EYE-CATERING ADMINISTRATIVE ASSISTANT) to steady your nerves or to [...] and will also fax an order to [facility] in case he can be seen there sooner. Message to provider. documented in this encounter Plan of Treatment Upcoming Encounters Date Type Department Care Team (Late st Contact Info) Description 09/12/2025 8:30 AM EDT Clinical Support [facility] Transplant [place] [address] [facility] [address] [place] [address] 09/12/2025 10:00 AM EDT Office Visit [facility] Transplant [place] [address] [place] [address] Portia Maguire MD [address] [facility] [address] [place] [address] 10/03/2025 12:45 PM EST Office Visit Medical Office Building Urology [address] [facility], [address] [place] [address] Suhail Brock MD [address] [facility] [address] [place] [address] 10/18/2025 4:20 PM EST Office Visit [facility] [email or web address] [place] Bone & Mineral Metabolism [address] [facility], [address] [place] [address] Moustapha Katz MD [address] [facility] [address] [place] [address] Scheduled Orders Name Type Priority [...] documented as of this encounter Care Teams Field Nurse Relationship Specialty Start Date End Date Chris Medel MD [address] [place] [address] PCP - General 03/14/25 Ruma Hernández APRN [address] [place] [address] Referring Physician Gastroenterology 07/30/23 documented as of this encounter
--- OUTSIDE RECORDS SUMMARY | 2025-08-15 07:42 | XMS_ITS | Encounter Summary ---
Author Organization [facility] Address [address] [place] [address] Care Team Providers Care Powder Hand Name Role Phone Unavailable Primary Care Provider [...] release of HIV test results or diagnoses. [id number] Health Encounter Details Date Type Department Care Team (Late st Contact Info) Description 08/02/2025 Chart Note [facility] Liver Transplant at [address] [address] Cori Dover MA Liver transplant referral entered. Social History Tobacco Use Types Packs/Day Years Used Date Smoking Tobacco: Never Assessed Sex and Gender Information Value Date Recorded Sex Assigned at Not on file Legal Sex Male 3:33 PM EDT Gender Identity Not on file Sexual Orientation Not on file documented as of this encounter Progress Notes * Cori Dover MA - 08/02/2025 10:00 AM EDT Liver transplant referral entered. documented in this encounter Plan of Treatment Not on file documented as of this encounter Visit Diagnoses Not on filedocumented in this encounter
--- OUTSIDE RECORDS SUMMARY | 2025-08-15 07:42 | XMS_ITS ---
Author Organization [facility] Address [address] 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
--- OUTSIDE RECORDS SUMMARY | 2025-08-15 07:42 | XMS_ITS | Encounter Summary ---
Author Organization Healthcare Address [address] [place] [address] Care Team Providers Care Research Manager Name Role Phone Ruma Hernández HIV CTS SPECIALIST Unavailable [phone] Chris Medel MD Primary Care Provider [phone] Encounter Details Date Type Department Care Team (Late st Contact Info) Description 06/21/2025 Results Follow-Up [facility] Transplant Center [address] [place] [address] Meaghan Le, RN [facility] LIVER [id number] [address] [place] [address] Social History Tobacco Use Types [...] you attend [facility] or latter-day services? More than 4 [...] How often do you attend chur or latter-day services? More than 4 times [...] and heating? Not hard at all 06/15/2025 [facility] of Occupat ional [facility] - Occupational Stress Questionnaire Answer Date [...] drink first t luisa in the morning (EYE-ANIMAL DAMAGE CONTROL AGENT) to steady your nerves or to get rid of a hangover? 0 06/14/2025 CAGE Questionnaire Score 0 025 Utilities Answer Date Recorded In the past 12 months has e electric, gas, oil, or water [employer] threatened to shut off services in your [...] going to have a para tomorrow at [facility]. He is only on 40/100 - if they have to drain him do you want to increase his diuretics? documented in this encounter Plan of Treatment Upcoming Encounters Date Type Department Care Team (Late st Contact Info) Description 09/12/2025 8:30 AM EDT Clinical Support [facility] Transplant Center [address] [place] [address] 09/12/2025 10:00 AM EDT Office Visit [facility] Transplant Center [address] [place] [address] Portia Maguire MD [address] [place] [address] 10/03/2025 12:45 PM EST Office Visit Medical Office Building Urology [address], [address] [place] [address] Suhail Brock MD [address] [place] [address] 10/18/2025 4:20 PM EST Office Visit [facility] [address] [facility], [address] [place] [address] Moustapha Katz MD [address] [facility] [address] [place] [address] documented as of this encounter [...] documented as of this encounter Care Teams Research Manager Relationship Specialty Start Date End Date Chris Medel MD [address] [place] [address] PCP - General 03/14/25 Ruma Hernández APRN [address] [place] [address] [address] [place] [address] Referring Physician Gastroenterology 07/30/23 documented as of this encounter
--- OUTSIDE RECORDS SUMMARY | 2025-08-15 07:42 | XMS_ITS | Encounter Summary ---
Author Organization [facility] Address [address] [place] [address] Care Team Providers Care Station Air Traffic Control Specialist Name Role Phone Unavailable Primary Care Provider [...] release of HIV test results or diagnoses. [id number] Health Encounter Details Date Type Department Care Team (Late st Contact Info) Description 08/13/2025 Chart Note [facility] Kidney Transplant at [address] [address] Ailin Wells Patient is financially cleared for liver transplant evaluation Social History Tobacco Use Types Packs/Day Years Used Date Smoking Tobacco: Never Assessed Sex and Gender Information Value Date Recorded Sex Assigned at Not on file Legal Sex Male 3:33 PM EDT Gender Identity Not on file Sexual Orientation Not on file documented as of this encounter Progress Notes * Ailin Wells - 08/13/2025 9:24 AM EDT Patient is financially cleared for liver transplant evaluation Evaluation for patient/donor [facility] at [facility] documented in this encounter Plan of Treatment Not on file documented as of this encounter Visit Diagnoses Not on filedocumented in this encounter
--- OUTSIDE RECORDS SUMMARY | 2025-08-15 07:42 | XMS_ITS | Encounter Summary ---
Author Organization [facility] Address [address] [place] [address] Care Team Providers Care Pin Ball Machine Mechanic Name Role Phone Unavailable Primary Care Provider [...] release of HIV test results or diagnoses. [id number] Health Encounter Details Date Type Department Care Team (Late st Contact Info) Description 08/13/2025 Telephone [facility] Liver Transplant at [address] [address] Cori Dover MA Social History Tobacco Use Types Packs/Day Years Used Date Smoking Tobacco: Never Assessed Sex and Gender Information Value Date Recorded Sex Assigned at Not on file Legal Sex Male 3:33 PM EDT Gender Identity Not on file Sexual Orientation Not on file documented as of this encounter Progress Notes * Cori Dover MA - 08/13/2025 4:27 PM EDT Called to get patient scheduled for CT Chest scan. Appointment scheduled for 09/10/25 @1120 am. documented in this encounter Plan of Treatment Not on file documented as of this encounter Visit Diagnoses Not on filedocumented in this encounter
--- OUTSIDE RECORDS SUMMARY | 2025-08-15 07:42 | XMS_ITS | Encounter Summary ---
Author Organization Healthcare Address [address] [place] [address] Care Team Providers Care Plan Coordinator Name Role Phone Ruma Hernández MILK DELIVERY DRIVER Unavailable [phone] Chris Medel MD Primary Care Provider [phone] Encounter Details Date Type Department Care Team (Late st Contact Info) Description 06/29/2025 Results Follow-Up [facility] [address] [place] [address] Meaghan Le, RN [facility] LIVER [id number] [address] [place] [address] Social History Tobacco Use Types [...] do you attend [facility] or pentecostalism services? More than 4 times [...] and heating? Not hard at all 06/15/2025 [facility] of Occupat ional [facility] - Occupational Stress Questionnaire Answer Date [...] drink first t luisa in the morning (EYE-BIBLICAL STUDIES PROFESSOR) to steady your nerves or to get rid of a hangover? 0 06/14/2025 CAGE Questionnaire Score 0 025 Utilities Answer Date Recorded In the past 12 months has th [employer], gas, oil, or water ehealthtracker threatened to shut off services in your [...] Description 09/12/2025 8:30 AM EDT Clinical Support [facility] [place] [address] [facility] [address] [place] [address] 09/12/2025 10:00 AM EDT Office Visit [facility] [place] [address] [place] [address] Portia Maguire MD [address] [facility] [address] [place] [address] 10/03/2025 12:45 PM EST Office Visit Medical Office Building Urology [address] [facility], [address] [place] [address] Suhail Brock MD [address] [facility] [address] [place] [address] 10/18/2025 4:20 PM EST Office Visit [facility] [employer] [place] [facility] [address] [facility], [address] [place] [address] Moustapha Katz MD [address] [facility] [address] [place] [address] documented as of this encounter [...] documented as of this encounter Care Teams Plan Coordinator Relationship Specialty Start Date End Date Chris Medel MD [address] [place] [address] PCP - General 03/14/25 Ruma Hernández APRN [address] [place] [address] Referring Physician Gastroenterology 07/30/23 documented as of this encounter
--- OUTSIDE RECORDS SUMMARY | 2025-08-15 07:42 | XMS_ITS | Encounter Summary ---
Author Organization Healthcare Address [address] [place] [address] Care Team Providers Care Freight Shipping Agent Name Role Phone Urban Brantley DO Primary Care Provider [phone] Ruma Hernández LICENSED THERAPIST Unavailable [phone] Chris Medel MD Primary Care Provider [phone] Encounter Details Date Type Department Care Team (Late st Contact Info) Description 03/22/2023 Orders Only External Location [address] [place] [address] Provider, External Social History Tobacco Use Types [...] Description 09/12/2025 8:30 AM EDT Clinical Support [facility] Transplant [place] [address] [address] 09/12/2025 10:00 AM EDT Office Visit [facility] Transplant [place] [address] [address] Portia Maguire MD [address] [place] [address] 10/03/2025 12:45 PM EST Office Visit Medical Office Building Urology [address] [facility], [address] [place] [address] Suhail Brock MD [address] [place] [address] 10/18/2025 4:20 PM EST Office Visit [facility] [employer] [place] [facility] [address] [facility], [address] [place] [address] Moustapha Katz MD [address] [facility] [address] [place] [address] documented as of this encounter [...] documented as of this encounter Care Teams Freight Shipping Agent Relationship Specialty Start Date End Date Urban Brantley DO [address] [place] [address] PCP - General 07/30/23 03/13/25 Chris Medel MD [address] [place] [address] PCP - General 03/14/25 Ruma Hernández APRN [address] [facility] 202 [place], [place] [address] Referring Physician Gastroenterology 07/30/23 documented as of this encounter
--- OUTSIDE RECORDS SUMMARY | 2025-08-15 07:42 | XMS_ITS | Encounter Summary ---
Author Organization Healthcare Address [address] [place] [address] Care Team Providers Care Credit Risk Manager Name Role Phone Urban Brantley DO Primary Care Provider [phone] Ruma Hernández SALES REPRESENTATIVE PUBLIC UTILITIES Unavailable [phone] Chris Medel MD Primary Care Provider [phone] Encounter Details Date Type Department Care Team (Late st Contact Info) Description 03/22/2023 Orders Only External Location [address] [place] [address] Provider, External Social History Tobacco Use Types [...] AM EDT Clinical Support [facility] [place] [address] [address] 09/12/2025 10:00 AM EDT Office Visit [facility] Transplant [place] [address] [address] Portia Maguire MD [address] [place] [address] 10/03/2025 12:45 PM EST Office Visit Medical Office Building Urology [address] [facility], [address] [place] [address] Suhail Brock MD [address] [place] [address] 10/18/2025 4:20 PM EST Office Visit [facility] [employer] [place] [facility] [address] [facility], [address] [place] [address] Moustapha Katz MD [address] [facility] [address] [place] [address] documented as of this encounter [...] documented as of this encounter Care Teams Credit Risk Manager Relationship Specialty Start Date End Date Urban Brantley DO [address] [place] [address] PCP - General 07/30/23 03/13/25 Chris Medel MD [address] [place] [address] PCP - General 03/14/25 Ruma Hernández APRN [address] [facility] 202 [place], [place] [address] Referring Physician Gastroenterology 07/30/23 documented as of this encounter
--- OUTSIDE RECORDS SUMMARY | 2025-08-15 07:42 | XMS_ITS | Encounter Summary ---
Author Organization Healthcare Address [address] [place] [address] Care Team Providers Care Airport Operations Supervisor Name Role Phone Urban Brantley DO Primary Care Provider [phone] Ruma Hernández SOLAR ENERGY ENGINEER Unavailable Chris Medel MD Primary Care Provider [phone] Encounter Details Date Type Department Care Team (Late st Contact Info) Description 12/30/2023 Orders Only External Location [address] [place] [address] Urban Stafford MD 12[address] [facility] [address] [place] [address] Social History Tobacco Use Types Packs/Day [...] Support [facility] [place] [address] [place] [address] 09/12/2025 10:00 AM EDT Office Visit [facility] [place] [address] [place] [address] Portia Maguire MD [address] [place] [address] 10/03/2025 12:45 PM EST Office Visit Medical Office Building Urology [address] [facility], [address] [place] [address] Suhail Brock MD [address] [place] [address] 10/18/2025 4:20 PM EST Office Visit [facility] [email or web address] [place] [facility] [address] [facility], [address] [place] [address] Moustapha Katz MD [address] [place] [address] documented as of this encounter [...] documented as of this encounter Care Teams Airport Operations Supervisor Relationship Specialty Start Date End Date Urban Brantley DO [address] [place] [address] PCP - General 07/30/23 03/13/25 Chris Medel MD [address] [place] [address] PCP - General 03/14/25 Ruma Hernández APRN [address] [place] [address] Referring Physician Gastroenterology 07/30/23 documented as of this encounter
--- OUTSIDE RECORDS SUMMARY | 2025-08-15 07:42 | XMS_ITS | Encounter Summary ---
Author Organization [facility] Address [address] [place] [address] Care Team Providers Care Social And Political Studies Professor Name Role Phone Unavailable Primary Care Provider [...] release of HIV test results or diagnoses. [id number] Health Encounter Details Date Type Department Care Team (Late st Contact Info) Description 08/13/2025 Telephone [facility] Liver Transplant at [address] [address] Cori Dover MA Social History Tobacco Use Types Packs/Day Years Used Date Smoking Tobacco: Never Assessed Sex and Gender Information Value Date Recorded Sex Assigned at Not on file Legal Sex Male 3:33 PM EDT Gender Identity Not on file Sexual Orientation Not on file documented as of this encounter Progress Notes * Cori Dover MA - 08/13/2025 4:51 PM EDT Call to patient/spouse to schedule new patient appointments in liver transplant clinic. Scheduled on 09/10/2025. Verified e-mail address and sent the new patient welcome e-mail with attached education. Encouraged patient and their support persons to view prior to their appointment. documented in this encounter Plan of Treatment Not on file documented as of this encounter Visit Diagnoses Not on filedocumented in this encounter
--- OUTSIDE RECORDS SUMMARY | 2025-08-15 07:42 | XMS_ITS | Encounter Summary ---
Author Organization Healthcare Address [address] [place] [address] Care Team Providers Care Allergy Nurse Name Role Phone Ruma Hernández LEAD ENTERPRISE ARCHITECT Unavailable [phone] Chris Medel MD Primary Care Provider [phone] Encounter Details Date Type Department Care Team (Late st Contact Info) Description 06/05/2025 Results Follow-Up [facility] Transplant Center [address] [place] [address] Meaghan Le, RN [facility] LIVER [id number] [address] [place] [address] Social History Tobacco Use Types [...] week 02/19/2025 How often do you attend [facility] or zoroastrianism services? More than 4 times per year 02/19/2025 Do you belong to any clubs o r organizations such as yazdanism groups, unions, [employer] or athletic groups, or school groups? Yes [...] How often do you attend chur or zoroastrianism services? More than 4 times [...] and heating? Not hard at all 06/15/2025 [facility] of Occupat ional Health - Occupational [...] any time in the past 12 m [facility], were you homeless or living [...] drink first t luisa in the morning (EYE-CONTRACT GRAPHIC DESIGNER) to steady your nerves or to get rid of a hangover? 0 06/14/2025 CAGE Questionnaire Score 0 025 Utilities Answer Date Recorded In the past 12 months has th e [employer], gas, oil, or water [employer] threatened to shut off services in your [...] EDT Chapito Jarrett 2. Non-Specific Active Suici alisosn Thoughts (Past 1 Month) No 06/14/2025 9:23 PM EDT Chapito Jarrett 6. Suicidal Behavior (Lifetime) No 9:23 PM EDT Chapito Jarrett documented as of this encounter Miscellaneous Notes * Result Encounter Note - Zairna Moore PA - 06/05/2025 12:13 PM EDT Labs reviewed - MELD , stable. * Result Encounter Note - Meaghan Le RN - 06/05/2025 11:33 AM EDT Monthly labs documented in this encounter Plan of Treatment Upcoming Encounters Date Type Department Care Team ([facility] st Contact Info) Description 09/12/2025 8:30 AM EDT Clinical Support [facility] [address] [place] [address] 09/12/2025 10:00 AM EDT Office Visit [facility] [address] [place] [address] Portia Maguire MD [address] [place] [address] 10/03/2025 12:45 PM EST Office Visit Medical Office Building Urology [facility], [address] [place] [address] Suhail Brock MD [address] [place] [address] 10/18/2025 4:20 PM EST Office Visit [facility] [employer] [facility] Metabolism [address] [place] [address] Moustapha Katz MD [address] [place] [address] documented as of this encounter [...] documented as of this encounter Care Teams Allergy Nurse Relationship Specialty Start Date End Date Chris Medel MD [address] [place] [address] PCP - General 03/14/25 Ruma Hernández APRN [address] [facility] [address] [place] [address] Referring Physician Gastroenterology 07/30/23 documented as of this encounter
--- OUTSIDE RECORDS SUMMARY | 2025-08-15 07:42 | XMS_ITS | Encounter Summary ---
Author Organization [facility] Address [address] [place] [address] Care Team Providers Care Predatory Animal Trapper Name Role Phone Unavailable Primary Care Provider [...] release of HIV test results or diagnoses. [id number] Health Encounter Details Date Type Department Care Team (Late st Contact Info) Description 08/01/2025 Chart Note [facility] Liver Transplant at [address] [address] Chapito Alcantar RN Referral for liver transplant was received and reviewed. The review notes Social History Tobacco Use Types Packs/Day Years Used Date Smoking Tobacco: Never Assessed Sex and Gender Information Value Date Recorded Sex Assigned at Not on file Legal Sex Male 3:33 PM EDT Gender Identity Not on file Sexual Orientation Not on file documented as of this encounter Progress Notes * Chapito Alcantar RN - 08/01/2025 10:00 AM EDT Referral for liver transplant was received and reviewed. 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 The calculated MELD score is 21. The referral will be entered and sent to Finance for INS approval. Patient currently listed at . Work up complete. Will have patient scheduled with ID and anesthesia during first visit. Needs a chest CT. No barriers upon review. documented in this encounter Plan of Treatment Not on file documented as of this encounter Visit Diagnoses Not on filedocumented in this encounter
--- OUTSIDE RECORDS SUMMARY | 2025-08-15 07:42 | XMS_ITS ---
Author Organization [facility] Address [facility] [place] [address] Care Team Providers Care Police Captain Senior Name Role Phone Unavailable Primary Care Provider Unavailabl e Transplant Episode Liver Candidate [facility] ([place] [place]) - [facility] Referred on 08/02/2025 Marked as Active on 08/13/2025 Reason: Financially Cleared Liver CoordinatorChapito Alcantar RN Phone: N/A Fax: N/A Email: N/A [place] Organ Diagnosis 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 Care Team Name Role Phone Fax Email Chapito Alcantar RN Liver Coordinator N/A N/A N/A Chapito Alcantar RN Txp Pre Coordinator N/A N/A N/A Portia Maguire Referring Physician [phone] N/A Michelle Ho MSW, RELATIONS COORDINATOR Txp Rubber Production Machine Operator N/A N/A N/A Events Pre-Transplant Referred: 08/02/2025
--- OUTSIDE RECORDS SUMMARY | 2025-08-15 07:42 | XMS_ITS | Encounter Summary ---
Author Organization [facility] Address [address] [place] [address] Care Team Providers Care Canal Equipment Maintenance Supervisor Name Role Phone Unavailable Primary Care Provider [...] release of HIV test results or diagnoses. [id number] Reason for Referral * Imaging/Cardiovascular Scan (Routine) - New Request Specialty Diagnoses / Procedures Referred By Contac t Referred To Contact Radiology Diagnoses Pre-transplant evaluation for chronic liver disease Procedures CT Chest WO contrast [facility] Liver Transplant at [address] [place] [address] Phone: tel: fax: Referral ID Status Reason Start Date Expiration Date V isits Requested Visits Authorized [id number] New Request 08/13/2025 02/09/2026 1 1 Encounter Details Date Type Department Care Team (Late st Contact Info) Description 08/13/2025 Orders Only [facility] Liver Transplant at [address] [place] [address] Chapito Alcantar RN Pre-transplant evaluation for chronic liver disease (Primary Dx) Social History Tobacco Use Types Packs/Day Years Used Date Smoking Tobacco: Never Assessed Sex and Gender Information Value Date Recorded Sex Assigned at Not on file Legal Sex Male 3:33 PM EDT Gender Identity Not on file Sexual Orientation Not on file documented as of this encounter Plan of Treatment Scheduled Orders Name Type Priority Associated Diagnoses Orde r Schedule CT Chest WO contrast Imaging Routine Pre-transplant evaluation for chronic liver disease 1 Occurrences starting 08/13/2025 until 02/25/2026 documented as of this encounter Visit Diagnoses Diagnosis Pre-transplant evaluation for chronic liver disease- Primary documented in this encounter
--- OUTSIDE RECORDS SUMMARY | 2025-08-15 07:42 | XMS_ITS | Encounter Summary ---
Author Organization Healthcare Address [address] [place] [address] Care Team Providers Care Doors Prefitter Name Role Phone Urban Brantley DO Primary Care Provider [phone] Ruma Hernández DOOR SERVICEMAN Unavailable [phone] Chris Medel MD Primary Care Provider [phone] Encounter Details Date Type Department Care Team (Late st Contact Info) Description 05/09/2023 Orders Only External Location [address] [place] [address] Provider, External Social History Tobacco Use Types [...] Description 09/12/2025 8:30 AM EDT Clinical Support [facility] Transplant [place] [address] [address] 09/12/2025 10:00 AM EDT Office Visit [facility] Transplant [place] [address] [address] Portia Maguire MD [address] [place] [address] 10/03/2025 12:45 PM EST Office Visit Medical Office Building Urology [address] [facility], [address] [place] [address] Suhail Brock MD [address] [place] [address] 10/18/2025 4:20 PM EST Office Visit [facility] [employer] [place] [facility] [address] [facility], [address] [place] [address] Moustapha Katz MD [address] [facility] [address] [place] [address] documented as of this encounter [...] documented as of this encounter Care Teams Doors Prefitter Relationship Specialty Start Date End Date Urban Brantley DO [address] [place] [address] PCP - General 07/30/23 03/13/25 Chris Medel MD [address] [place] [address] PCP - General 03/14/25 Ruma Hernández APRN [address] [facility] 202 [place] [address] Referring Physician Gastroenterology 07/30/23 documented as of this encounter
[2025-08-15 08:24] LABS: Hematocrit 32.9 % (42.0-52.0); Hemoglobin 10.9 g/dL (14.1-18.0); Mean Corpuscular HGB Conc 33.1 g/dL (31.8-35.4); Mean Corpuscular Hemoglobin 33.6 pg (27.0-31.2); Mean Corpuscular Volume 101.5 fl (80-94); Nucleated Red Blood Cells % 0 %; Platelet Count 58 K/mm3 (142-424); Red Blood Count 3.24 M/mm3 (4.60-6.20); Red Cell Distribution Width-SD 65.1 fL; White Blood Count 3.3 K/mm3 (4.8-10.8)
[2025-08-15 08:33] LABS: Activated Partial Thrombo Time 36.9 seconds (22.8-30.6); INR 1.55 (0.9-1.1); Prothrombin Time 16.7 seconds (10.1-12.5)
[2025-08-15 09:00] LABS: Alanine Aminotransferase 46 U/L (12-78); Albumin Level 2.2 g/dl (3.5-5.0); Albumin/Globulin Ratio 0.6 (1.1-1.8); Alkaline Phosphatase 193 U/L (38-126); Anion Gap 4.1 mEq/L (5-15); Aspartate Amino Transferase 59 U/L (17-59); Bilirubin,Total 5.4 mg/dl (0.2-1.3); Blood Urea Nitrogen 14 mg/dl (9-20); Calcium 8.4 mg/dl (8.4-10.2); Carbon Dioxide 28 mmol/L (22.0-30.0); Chloride 110 mmol/L (98-107); Creatinine,Serum 0.70 mg/dl (0.66-1.25); Estimated Glomerular Filt Rate 114 ml/min (>60); GFR (African American) 137 ML/MIN (>60); Globulin 3.9 g/dL (1.3-3.2); Glucose 93 mg/dl (74-100); Phosphorous 3.7 mg/dl (2.5-4.5); Potassium 4.1 mmoL/L (3.5-5.1); Sodium 138 mmol/L (136-145); Total Protein,Serum 6.1 g/dl (6.3-8.2)
[2025-08-15 10:01] LABS: 25-OH Vitamin D, Total 68.0 ng/mL (30-100)
[2025-08-17 16:29] LABS: Alkaline Phosphatase 149 IU/L (47-123)
== END 2025-08-15 23:59 | disposition home or self-care (01) ==
LOC: LAB 07:39
PROVIDERS: PCP Family Medicine; Visit Provider Internal Medicine
DX: M81.8 Other osteoporosis without current pathological fracture (principal); K72.90 Hepatic failure, unspecified without coma
CPT/HCPCS: 36415; 80053; 82306; 84075; 84080; 84100; 85027; 85610; 85730

== ENCOUNTER 2025-08-29 09:19 | Outpatient (CLI) | payer BC, SELFPAY ==
--- OUTSIDE RECORDS SUMMARY | 2023-08-27 08:34 | XMS_ITS | Encounter Summary ---
[facility] Address [address] [place] [address] Care Team Providers Care Senior Data Modeler Name Role Phone Karon Urban Jc DO Primary Care Provider +1 -[phone] Encounter Details Date Type Department Care Team (Late st Contact Info) Description 08/27/2023 8:34 AM EDT Hospital Encounter [facility] PULMONARY & CRITICAL CARE MEDICINE [address] [place] [phone] Social History Tobacco Use Types Packs/Day [...] on filedocumented in this encounter Care Teams Senior Data Modeler Relationship Specialty Start Date End Date Urban Brantley DO [address] [place] [address] [place] [address] PCP - General Internal Medicine 03/22/23 documented as of this encounter
--- OUTSIDE RECORDS SUMMARY | 2025-07-11 09:30 | XMS_ITS | Encounter Summary ---
Author Organization [facility] Address [address] [place] [address] Care Team Providers Care Cleat Feeder Name Role Phone Ruma Hernández RAG ROOM SUPERVISOR Unavailable [phone] Chris Medel MD Primary Care Provider [phone] Encounter Details Date Type Department Care Team (Late st Contact Info) Description 07/11/2025 9:30 AM EDT Social Work [facility] [address] [place] [address] Liliane Jacobs, [place] [phone] Social History Tobacco Use Types Packs/Day Years [...] do you attend [facility] or hinduism services? More than 4 [...] Date Recorded Patient Health Questionnaire-2 Score 0 07/11/2025 PHQ-9 Answer Date Recorded Patient Health Questionnaire-9 [...] week 06/15/2025 How often do you attend [facility] or hinduism services? More than 4 [...] and heating? Not hard at all 06/15/2025 [facility] - Occupational Stress Questionnaire Answer Date Recorded [...] in the past 12 m [facility], were you homeless or living in a [...] drink first t luisa in the morning (EYE-STAKING ENGINEER) to steady your nerves or to get rid of a hangover? 0 06/14/2025 CAGE Questionnaire Score 0 025 Utilities Answer Date Recorded In the past 12 months has th [facility], gas, oil, or water [employer] threatened to shut off services in your [...] pleasure in doing things Not at all 07/11/2025 9:24 AM EDT Audie Atkinson Feeling down, depressed, or hopeless Not at all 07/11/2025 9:24 AM EDT Audie Atkinson Patient Health Questionnaire -2 Score 0 07/11/2025 9:24 AM EDT Audie Atkinson documented as of this encounter Miscellaneous Notes * Clinician Note - Liliane Jacobs LCSW - 07/11/2025 9:30 AM EDT Identifying Information Name: David Pop : 1960 Assessment date: initial eval 06/13/2024; annual update 07/11/25 Transplant type: Liver Transplant Referral - 07/30/2023 People present at assessment: patient and , Stacy Specification Consultant: Meaghan Le RN David Pop is a 65 y.o. male with a diagnosis of decompensated alcohol associated cirrhosis . He is being evaluated for a liver transplant. Primary language: Emirati Restoration/spirituality: Religious Do you have any hinduism, ethical or personal objections to accepting blood products, surgery and/or transplant? No Citizenship Where were you born? [place] Family Background and Supportive Relationships Parental information: mother at [facility] in [facility]; dad Sibling information: 1 brother and 1 sister, both in [place]; good relationship with both Children: son, Lan, ; daughter Gloria; Gloria is in [place], Lan in [place] Marital/relationship status: Stacy, spouse; [phone], 31 years Household composition: patient and spouse Babysit grandkids on occasion, but they are going to daycare soon - young Support / Caregiver Plans Who will be your primary caregiver? Stacy, Health status & availability: works in [employer], can work remote if need be - has been there over 20 years. Employer is supportive. Who will be your secondary caregiver(s)? Family - likely siblings/friends - would be a group effort. Patient and both reports strong support system should they need additional help. Stacy's mother will be able to assist some also. Other important supportive relationships: If several caregivers are involved, will they be able to cooperate with each other? yes How comfortable are you asking for and/or receiving help? Willing to ask for help Have you been or are you currently a caregiver for someone else (i.e. children, spouse, parents)? If you???re not there, who will help them? Grandkids to go to daycare Are there any ongoing family disagreements or life issues that may be impacted by the transplant? no Does anyone in your household or caregiving team use tobacco, or abuse alcohol or illicit substances? no Advance Directives Do you have an advance directive? Not Received Do you have a DPOA for healthcare or finances? yes A living will? yes, SW requested patient provide a copy Who is the proxy? Stacy Home Environment Living situation: Private Home Rent or Own? Own, Utilities: water source: city, Electricity: yes, Type of Heat: forced air/gas Number of steps to enter home: one Are bed and bath are on the same level? yes Local Housing Is local housing required? No, patient lives in [place], [place], about an hour away Insurance benefit for local housing? N/a Education / Employment / Financial Situation What is your highest level of education? Graduated HS Are you able to read and write? 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 no Have you applied for disability? N/a Do you have short term or intermission coordinator disability available thru work? no Financial Status What is your source of income? 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 HH2, patient does not meet 300% FPG Is current income adequate to meet monthly needs and current medications? yes How do you manage when you do not have enough money during the month? No financial concerns Will your caregiver being off work have an effect on your income? no What is your plan to pay for housing and transportation after transplant? income Insurance / Resources Payer/Plan Subscriber Name Rel Member # Group # NANCY - NANCY CANOI* MELE POP* Self [id number] [id number] What is your yearly insurance deductible? $3500 Who will pay for your insurance premium after transplant? Employer pays 80%; patient pays $123 / month. This will continue until patient is eligible for Medicare at 66. Medication Coverage Indicate medication costs after transplant: unknown How will you pay for these medications after transplant? Income/insurance 07/11/25: patient approaching 66 and discussed transition to Medicare, supplements and insurance needs for transplant. reports they have a freight broker agent contact from a friend and will begin investigation. Patient and insightful and prepared for upcoming changes. They agreed to notify Transplant when insurance changes. VA Benefits Have you served in the ? no Understanding of Medical Situation What is your primary diagnosis? Decompensated alcohol related cirrhosis When did you become aware of your diagnosis? February 2023 What do you understand about the cause of your disease? alcohol Do you have any other health issues? yes, kidney stones, excess iron Treatment Compliance / Adherence How do you manage your medications now? Memory, but may get pillbox Do you have any difficulties in getting or taking your medications? no Have you ever changed the way you take a medication without talking to the doctor? no Do you have a PCP or other medical provider you see regularly in the community? Yes, want to move care to Knowledge & Understanding of Transplant Process Do you know anyone else that has had a transplant? yes Tell me a little about what you understand about transplant. Just learning, patient able to demonstrate understanding of transplant process. What do you know about the risks of transplant? Rejection/life long medications What is your biggest concern? Nothing in particular Were the psychosocial risks of transplant reviewed: yes Willingness / Desire for Treatment (Transplant) Do you want to proceed with a transplant? yes What are your expectations for transplant? Want to continue with quality of life How did you start thinking of transplant as a treatment choice? MD Functional Ability / Personal Care Functional Ability What physical changes/declines/improvements have you seen in the last six months? Independent with ADL's; able to work in the yard Please describe your greatest physical limitation(s): Swelling on occasion/tired at times - may also be age related and related to activities. Hobbies / Interests What are your hobbies/interests (pasttimes and stress relievers)? 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 no Cognitive Function / Health Literacy How do you best learn new information? Hands on Do you have any history of developmental delays/learning differences/special education/OT/PT/speechtherapy? yes, reading Do you have any current or past problems with a medical issue (e.g. CVA, TBI, encephalopathy) that has impacted your cognitive function? no What is the family???s perception of patient???s cognitive function/dysfunction? No concerns, takesxifaxan Mental Health IIndicate cognitive function: Attentive: yes Memory problems: no *If yes, is it related to current medical condition: yes, on xifaxan - no need for lactulose at this time; Thought Processes Organized? yes Do you have a history of: no MH history Has anyone ever physically, emotionally, or sexually abused you? no Have you ever attempted suicide or thought about harming yourself or others? no Have you ever been hospitalized in a psychiatric hospital? no Do you currently or have you ever seen a therapist/counselor/psychiatrist? no Have you used medications for mental health issues, sleep and/or pain now or in the past? no Generalized Anxiety Disorder Questionnaire CLAUDIA-2 Over the last two weeks how often have you been bothered by the following problems? 1. Feeling nervous, anxious or on edge. 0 - Not at all 2. Not being able to stop or control worrying. 0 - Not at all Patient Health Questionnaire (PHQ 2) -Depression Scale During the past month, have you often been bothered by the following problems? Feeling down, depressed or hopeless? 0 - Not at all Little interest or pleasure in doing things? 0 - Not at all Total score: Add responses to both questions : 0 Coping What are the other stressors in your life? No real stressors other than health What helps you cope when you are feeling stressed? Being with family, positive attitude, humor, good support system Substance Abuse Tobacco: negative nicotine 03/2024 Tobacco Use History Social History Tobacco Use Smoking Status Never Smokeless Tobacco Former Types: Chew Quit date: 11/15/2019 Tobacco Comments not sure of exact date quit chewing but several years ago Alcohol: negative Peth 09/2023; last drink 02/2023; would drink beer daily 10-12; since about age 17 Social History Substance and Sexual Activity Alcohol Use Not Currently Comment: quit February 2023 Illicit Substances: denies - negative UDS 03/2024 Social History Substance and Sexual Activity Drug Use Never Substance Abuse & Treatment History What is your family history with alcohol and drug use? no What (if any) consequences has your use (tobacco/drugs/alcohol) had on your life (e.g., interpersonal, family, work, health, financial, legal, etc.)? Health Legal Issues Are you currently or have you ever been on probation or parole? no Do you have or have you ever had any warrants out for your arrest? no Have you had any substance-related legal problems? 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 yes Impression Low Risk -1;Moderate Risk -2;High Risk -3;Absolute contraindication -4 Social Support: 1 Identified Strengths / Risks: patient with good family support and extended support network of friends. present for eval and is able to work remote should she need to. Financial / Insurance: 1 Identified Strengths / Risks: patient with [place] traditional plan until age 66 when he will transition to Medicare. Patient reports no financial concerns. HH2, annual income $137K, plus rental income; patient does not meet 300% FPG. Compliance: 1 Identified Strengths / Risks: no compliance concerns noted Functional Status: 1 Identified Strengths / Risks: patient independent with ADL's, able to do yard work and anything he wants. Cognitive Function1 Identified Strengths / Risks: no noted deficits, but patient reports he was in special education for reading as a child. Mental Health1 Identified Strengths / Risks: no MH concerns Coping Skills1 Identified Strengths / Risks: patient with appropriate coping skills, positive attitude, use of humor, good support system Substance Use2 Identified Strengths / Risks: patient with over 15 months sobriety, reports no cravings or concernsfor return to drinking. Patient has not done rehab, but stopped on his own. 07/11/25: patient maintains sobriety and denies difficulties. Legal Issues1 Identified Strengths / Risks: history of 2 DUI's over 30 years ago. Nothing current. Understanding of Transplant Process2 Identified Strengths / Risks: just learning about transplant, but able to verbalize understanding. Motivation for Transplant1 Identified Strengths / Risks: patient with desire to continue to maintain quality of life and spendtime with family, grandkids and return to some fishing. PLAN: SW provided contact information to patient. SW to follow patient throughout transplant process. RECOMMENDATION: Patient to maintain negative nicotine and sobriety. SW to discuss in transplant liver selection committee. SALT: 2 SIPAT: 9 - Good Candidate. Recommend to list for transplantation - although monitoring of identified risk factors may be required. ADDENDUM: Discussed in liver selection committee 06/19/24 and patient is socially cleared for listingat this time. 07/11/25 update: Patient remains socially cleared for listing at this time. documented in this encounter Plan of Treatment Upcoming Encounters Date Type Department Care Team (Late st Contact Info) Description 09/12/2025 8:30 AM EDT Clinical Support [facility] [place] [address] [place] [address] 09/12/2025 10:00 AM EDT Office Visit [facility] [place] [address] [place] [address] Portia Maguire MD [address] [facility] [address] [place] [address] 10/03/2025 12:45 PM EST Office Visit Medical Office Building Urology [address], [address] [place] [address] Suhail Brock MD [address] [facility] [address] [place] [address] 10/18/2025 4:20 PM EST Office Visit [facility] [facility] [place] [facility] [address], [address] [place] [address] Moustapha Katz MD [address] [facility] [address] [place] [address] documented as of this encounter Visit Diagnoses Not on filedocumented in this encounter Additional Health Concerns Assessment Noted Time PHQ-9 Depression Total Score: 0 10/04/20 24 12:32 PM EST A fall risk assessment has been complete d for the patient 07/11/2025 9:24 AM EDT A Body Mass Index follow-up plan has been documented for the patient 07/17/2025 5:07 PM EDT documented as of this encounter Care Teams Cleat Feeder Relationship Specialty Start Date End Date Chris Medel MD [address] [place] [address] PCP - General 03/14/25 Ruma Hernández APRN [address] [facility] [address] [place] [address] Referring Physician Gastroenterology 07/30/23 documented as of this encounter
--- OUTSIDE RECORDS SUMMARY | 2025-07-11 10:30 | XMS_ITS | Encounter Summary ---
Author Organization Healthcare Address [address] [place] [address] Care Team Providers Care Leather Coverer Name Role Phone Ruma Hernández BOTTLE FEEDER Unavailable [phone] Chris Medel MD Primary Care Provider [phone] Reason for Visit * Reason Comments Pre-Liver Txp Follow-up Encounter Details Date Type Department Care Team (Late st Contact Info) Description 07/11/2025 10:30 AM EDT Office Visit [facility] [address] [place] [address] Portia Maguire MD [address] [facility] [address] [place] [address] Cirrhosis of liver with ascites, unspecified hepatic cirrhosis type (CMS/HCC) (Primary Dx); Other ascites; Pre-liver transplant, listed; Alcoholic cirrhosis, unspecified whether ascites present (CMS/HCC); Hemochromatosis associated with compound heterozygous mutation in HFE gene; Alcohol use disorder, moderate, in sustained remission Social History Tobacco Use Types Packs/Day Years [...] How often do you attend chur or confucianism services? More than 4 times per year 02/19/2025 Do you belong to any clubs o r organizations such as sikh groups, [employer], [employer] or athletic groups, or school groups? Yes [...] you attend [facility] or confucianism services? More than 4 times [...] and heating? Not hard at all 06/15/2025 [facility] Occupat ional Health - [...] drink first t luisa in the morning (EYE-CHAIR INSPECTOR) to steady your nerves or to get rid of a hangover? 0 06/14/2025 CAGE Questionnaire Score 0 025 Utilities Answer Date Recorded In the past 12 months has th [employer], gas, oil, or water [employer] threatened to shut off services in your [...] Sign Reading Time Taken Comments Blood Pressure 123/78 07/11/2025 9:21 AM EDT Pulse 91 07/11/2025 9:21 AM EDT Temperature 36.5 C (97.7 F) 07/11/2025 9:21 AM EDT Respiratory Rate 16 07/11/2025 9:21 AM EDT Oxygen Saturation 99% 07/11/2025 9:21 AM EDT Inhaled Oxygen Concentration - - Weight 96 kg (211 lb 10.3 oz) 07/11/2025 9:21 AM EDT Height 167.6 cm (5' 6 ) 07/11/2025 9:21 AM EDT Body Mass Index 34.16 07/11/2025 9:21 AM EDT documented in this encounter Functional [...] encounter Miscellaneous Notes * Progress Notes - Portia Maguire MD - 07/11/2025 10:30 AM EDT Subjective Patient ID: Tanner Pop [...] reviewed this encounter and updated as appropriate: Review of Systems All other systems reviewed [...] A1AT seen in follow up MELD 3.0: 21 at 07/11/2025 8:27 AM MELD-Na: 19 at 07/11/2025 8:27 AM Calculated from: Serum Creatinine: 0.8 mg/dL (Using min of 1 mg/dL) at 07/11/2025 8:27 AM Serum Sodium: 135 mmol/L at 07/11/2025 8:27 AM Total Bilirubin: 3.8 mg/dL at 07/11/2025 8:27 AM Serum Albumin: 2.2 g/dL at 07/11/2025 8:27 AM INR(ratio): 1.8 at 07/11/2025 8:27 AM Age at listin years Sex: Male at 07/11/2025 8:27 AM Accompanied by Stacy # Decompensated alcohol-associated cirrhosis, iron overload; 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 Previously getting monthly phlebotomy based on labs, goes monthly for labs --not currently listed for OLT but now with resolution of PNA can relist --> will discuss w selection committee --avoid NSAIDs, HSAUN-I/ARBs, CCBs, alcohol, can take tylenol <2000 mg/day # Ascites - controlled # LE edema - mild to moderate No H/O SBP or LVP current diuretic regimen Lasix 40mg/d and Aldactone 100mg/d but takes an extra dose of each as needed --continue low Na diet --continue current diuretic dose --no appreciable fluid pocket on bedside US #Hepatic encephalopathy- controlled. Has lactulose PRN On [...] 20mg # HCC surveillance- -US liver screen 06/13/2025: No liver lesions -CT abd 03/14/25: LI-RADS Negative -AFP normal 02/2025 # Renal stones Follows with urology, current plan is monitoring Health maintenance- -Immune for Hep A and hepatitis B -03/31/23 colonoscopy - 2 5-8mm transverse colon polyps; 15mm sigmoid colon polyp; 4-6 sigmoid colonpolyps; 1 10mm sigmoid colon polyp. 5mm descending colon polyp; diverticulosis in sigmoid,descending colon. Internal hemorrhoids. Continue monthly labs RTC in 6 wks Extensively counseled the patient and family about patient's lab results and work-up, impressions, prognosis, risks/benefits of current treatment options, risk factor reduction, and instructions for management. Care coordination provided included review and summary of medical records and additional diagnosticresearch, phone collaboration and consult with peers. Portia Maguire MD documented in this encounter Plan of Treatment Upcoming Encounters Date Type Department Care Team (Late st Contact Info) Description 09/12/2025 8:30 AM EDT Clinical Support [facility] [address] [place] [address] 09/12/2025 10:00 AM EDT Office Visit [facility] [address] [place] [address] Portia Maguire MD [address] [place] [address] 10/03/2025 12:45 PM EST Office Visit Medical Office Building Urology [address] , [address] [place] [address] Suhail Brock MD [address] [place] [address] 10/18/2025 4:20 PM EST Office Visit [facility] [address] , [address] [place] [address] Moustapha Katz MD [address] [place] [address] documented as of this encounter Visit Diagnoses Diagnosis Cirrhosis of liver with ascites, unspecified hepatic cirrhosis type- Primary Other ascites Pre-liver transplant, listed Alcoholic cirrhosis, unspecified whether ascites present 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, moderate, in sustained remission documented in this encounter Additional Health Concerns Assessment Noted Time PHQ-9 Depression Total Score: 0 10/04/20 24 12:32 PM EST A fall risk assessment has been complete d for the patient 07/11/2025 9:24 AM EDT A Body Mass Index follow-up plan has been documented for the patient 07/17/2025 5:07 PM EDT documented as of this encounter Care Teams Leather Coverer Relationship Specialty Start Date End Date Chris Medel MD [address] [place] [address] PCP - General 03/14/25 Ruma Hernández APRN [address] [place] [address] Referring Physician Gastroenterology 07/30/23 documented as of this encounter
--- OUTSIDE RECORDS SUMMARY | 2025-08-29 09:34 | XMS_ITS | Clinical Summary ---
Author Organization [facility] Address [address] [place] [address] Care Team Providers Care Rn Gyn Name Role Phone ToniUrban morataya DO Primary Care Provider [phone] Allergies Active Allergy Reactions Criticality Noted Date [...] Recently Relevant to Health Maintenance Insurance [facility] PPO Care Teams Rn Gyn Relationship Specialty Start Date End Date Urban Brantley DO [address] [place], [place] [id number] PCP - General Internal Medicine 03/22/23
--- OUTSIDE RECORDS SUMMARY | 2025-08-29 09:34 | XMS_ITS | Encounter Summary ---
Author Organization [facility] Address [address] [place] [address] Care Team Providers Care Block Press Operator Name Role Phone Unavailable Primary Care [...] release of HIV test results or diagnoses. [id number] Health Encounter Details Date Type Department Care Team (Late st Contact Info) Description 07/31/2025 Telephone [facility] Liver Transplant at [address] [address] Chapito Alcantar RN Social History Tobacco Use [...] patient's spouse. Patient has been listed at [employer] for over a year and is inquiring [...]
--- OUTSIDE RECORDS SUMMARY | 2025-08-29 09:34 | XMS_ITS | Encounter Summary ---
Author Organization Healthcare Address [address] [place] [address] Care Team Providers Care Label Designer Name Role Phone Ruma Hernández ASSISTANT PRINTER FLOOR COVERING Unavailable [phone] Chris Medel MD Primary Care Provider [phone] Encounter Details Date Type Department Care Team (Late st Contact Info) Description 06/14/2025 Results Follow-Up [facility] Transplant Center [address] [place] [address] Meaghan Le, RN [facility] LIVER [id number] [address] [place] [address] Social History Tobacco Use Types [...] you attend [facility] or latter-day services? More than 4 [...] and heating? Not hard at all 06/15/2025 [facility] of Occupat ional [facility] - Occupational Stress Questionnaire Answer Date [...] any time in the past 12 m [facility], were you homeless or living in [...] first t luisa in the morning (EYE-MANAGER LEADERSHIP DEVELOPMENT) to steady your nerves or to get rid of a hangover? 0 06/14/2025 CAGE Questionnaire Score 0 025 Utilities Answer Date Recorded In the past 12 months has [employer], gas, oil, or water [employer] threatened to shut off services in your [...] Description 09/12/2025 8:30 AM EDT Clinical Support [facility] Transplant [place] [address] [facility] [address] [place] [address] 09/12/2025 10:00 AM EDT Office Visit [facility] [address] [facility] [address] [place] [address] Portia Maguire MD [address] [facility] [address] [place] [address] 10/03/2025 12:45 PM EST Office Visit Medical Office Building Urology [address] [facility], [address] [place] [address] Suhail Brock MD [address] [facility] [address] [place] [address] 10/18/2025 4:20 PM EST Office Visit [facility] [address] [facility], [address] [place] [address] Moustapha Katz MD [address] [facility] [address] [place] [address] documented as of this encounter [...] documented as of this encounter Care Teams Label Designer Relationship Specialty Start Date End Date Chris Medel MD [address] [place] [address] PCP - General 03/14/25 Ruma Hernández APRN 17[address] [facility] 202 [place] [address] Referring Physician Gastroenterology 07/30/23 documented as of this encounter
--- OUTSIDE RECORDS SUMMARY | 2025-08-29 09:34 | XMS_ITS | Encounter Summary ---
Author Organization Healthcare Address [address] [place] [address] Care Team Providers Care Ornamental Ironworker Helper Name Role Phone Ruma Hernández OUTSIDE CUTTER HAND Unavailable [phone] Chris Medel MD Primary Care Provider [phone] Encounter Details Date Type Department Care Team [...] you attend [facility] or methodist services? More than 4 [...] hard at all 06/15/2025 [facility] of Occupat ional Health - Occupational Stress [...] drink first t luisa in the morning (EYE-CUSTODIAL MAINTENANCE WORKER) to steady your nerves or to [...] 09/12/2025 8:30 AM EDT Clinical Support [facility] [address] [place] [address] 09/12/2025 10:00 AM EDT Office Visit [facility] [address] [place] [address] Portia Maguire MD [address] [place] [address] 10/03/2025 12:45 PM EST Office Visit Medical Office Building Urology [facility] [address] [facility], [address] [place] [address] Suhail Brock MD [address] [facility] [address] [place] [address] 10/18/2025 4:20 PM EST Office Visit Professional [address] [facility] Mineral Metabolism [address], [address] [place] [address] Moustapha Katz MD [address] [facility] [address] [place] [address] documented as of this encounter [...] documented as of this encounter Care Teams Ornamental Ironworker Helper Relationship Specialty Start Date End Date Chris Medel MD [address] [place] [address] PCP - General 03/14/25 Ruma Hernández APRN [address] [place] [address] [address] [place] [address] Referring Physician Gastroenterology 07/30/23 documented as of this encounter
--- OUTSIDE RECORDS SUMMARY | 2025-08-29 09:34 | XMS_ITS | Encounter Summary ---
Author Organization Healthcare Address [address] [place] [address] Care Team Providers Care Slab Miller Operator Name Role Phone Ruma Hernández MANAGER DISCOVERY Unavailable [phone] Chris Medel MD Primary Care Provider [phone] Encounter Details Date Type Department Care Team (Late st Contact Info) Description 08/01/2025 Results Follow-Up [facility] [address] [place] [address] Meaghan Le, RN [facility] LIVER [id number] [address] [place] [address] Social History Tobacco Use Types [...] do you attend [facility] or faith services? More than 4 times [...] and heating? Not hard at all 06/15/2025 [facility] of Occupat ional [facility] - Occupational Stress Questionnaire Answer [...] No 06/15/2025 Housing Stability Vital Sign Answer Franisco e Recorded In the last 12 months, [...] drink first t luisa in the morning (EYE-BUTTON PUSHER) to steady your nerves or to get [...] Upcoming Encounters Date Type Department Care Team ([facility] Contact Info) Description 09/12/2025 8:30 AM EDT Clinical Support [facility] [address] [place] [address] 09/12/2025 10:00 AM EDT Office Visit [facility] [place] [address] [place] [address] Portia Maguire MD [address] [place] [address] 10/03/2025 12:45 PM EST Office Visit Medical Office Building Urology [address] [facility], [address] [place] [address] Suhail Brock MD [address] [facility] [address] [place] [address] 10/18/2025 4:20 PM EST Office Visit Professional [facility] [place] [facility] [address] [facility], [address] [place] [address] Moustapha Katz MD [address] [facility] [address] [place] [address] documented as of this encounter [...] documented as of this encounter Care Teams Slab Miller Operator Relationship Specialty Start Date End Date Chris Medel MD [address] [place] [address] PCP - General 03/14/25 Ruma Hernández APRN [address] [facility] [address] [place] [address] Referring Physician Gastroenterology 07/30/23 documented as of this encounter
--- OUTSIDE RECORDS SUMMARY | 2025-08-29 09:34 | XMS_ITS | Encounter Summary ---
Author Organization Healthcare Address [address] [place] [address] Care Team Providers Care Prop Cutter Name Role Phone Ruma Hernández FILM TOUCH UP INSPECTOR Unavailable [phone] Chris Medel MD Primary Care Provider [phone]- [phone] Encounter Details Date Type Department Care Team (Late st Contact Info) Description 06/13/2025 Telephone [facility] [address] [place] [address] Zeferino Trejo, PharmD Social History [...] week 06/15/2025 How often do you attend [facility] or catholic services? More than 4 times [...] and heating? Not hard at all 06/15/2025 [facility] of Occupat [facility] - Occupational Stress Questionnaire Answer Date [...] drink first t luisa in the morning (EYE-ESTIMATOR AND DRAFTER) to steady your nerves or to get rid of a hangover? 0 06/14/2025 CAGE Questionnaire Score 0 025 Utilities Answer Date Recorded In the past 12 months has th e [employer], gas, oil, or water [employer] threatened to shut off services in your [...] [facility] [address] [place] [address] 09/12/2025 10:00 AM EDT Office Visit [facility] [address] [place] [address] Portia Maguire MD [address] [place] [address] 10/03/2025 12:45 PM EST Office Visit Medical Office Building Urology [address] [facility], [address] [place] [address] Suhail Brock MD [address] [place] [address] 10/18/2025 4:20 PM EST Office Visit Professional [facility] [address], [address] [place] [address] Moustapha Katz MD [address] [place] [address] documented as of this encounter [...] documented as of this encounter Care Teams Prop Cutter Relationship Specialty Start Date End Date Chris Medel MD [address] [place] [address] PCP - General 03/14/25 Ruma Hernández APRN 17[address] [facility] [address] [place] [address] Referring Physician Gastroenterology 07/30/23 documented as of this encounter
--- OUTSIDE RECORDS SUMMARY | 2025-08-29 09:34 | XMS_ITS | Clinical Summary ---
Author Organization [facility] Address [address] [place] [address] Care Team Providers Care Infrastructure Manager Name Role Phone Unavailable Primary Care Provider [...] therelease of HIV test results or diagnoses. [id number] Health Encounters Date Type Department Care Team Description 08/13/2025 Telephone [facility] Liver Transplant at [address] [address] Cori Dover MA 08/13/2025 Telephone [facility] Liver Transplant at [address] [address] Cori Dover MA 08/13/2025 Orders Only [facility] Liver Transplant at [address] [place] [address] Chapito Alcantar RN Pre-transplant evaluation for chronic liver disease (Primary Dx) 08/13/2025 Chart Note [facility] Kidney Transplant at [address] [place] [address] Ailin Wells Patient is financially cleared for liver transplant evaluation 08/02/2025 Chart Note [facility] Liver Transplant at [address] [place] [address] Cori Dover MA Liver transplant referral entered. 08/01/2025 Chart Note [facility] Liver Transplant at [address] [place] [address] Chapito Aclantar, ultrasonic cleaner for liver transplant was received and reviewed. The review notes 07/31/2025 Telephone [facility] Liver Transplant at [address] [place] [address] Chapito Alcantar, RN from Last [...]
--- OUTSIDE RECORDS SUMMARY | 2025-08-29 09:34 | XMS_ITS | Encounter Summary ---
Author Organization Healthcare Address [address] [place] [address] Care Team Providers Care Pediatric Associate Name Role Phone Ruma Hernández FINANCE EXECUTIVE Unavailable [phone] Chris Medel MD Primary Care Provider [phone] Encounter Details Date Type Department Care Team (Late st Contact Info) Description 05/01/2025 Results Follow-Up [facility] [address] [place] [address] Meaghan Le, RN [facility] LIVER [id number] [address] [place] [address] Social History Tobacco Use Types [...] 02/19/2025 How often do you attend [facility] or mormon services? More than 4 times per year 02/19/2025 Do you belong to any clubs o r organizations such as anabaptism groups, unions, [employer] or athletic groups, or school groups? Yes [...] [facility] of Occupat ional Health [...] drink first t luisa in the morning (EYE-WELDING MACHINE OPERATOR HELPER GAS) to steady your nerves or to get rid of a hangover? 0 06/14/2025 CAGE Questionnaire Score 0 025 Utilities Answer Date Recorded In the past 12 months has th e [employer], gas, oil, or water company threatened to [...] [facility] [address] [place] [address] 09/12/2025 10:00 AM EDT Office Visit [facility] [address] [place] [address] Portia Maguire MD [address] [place] [address] 10/03/2025 12:45 PM EST Office Visit Medical Office Building Urology [address] [facility], [address] [place] [address] Suhail Brock MD [address] [place] [address] 10/18/2025 4:20 PM EST Office Visit Professional [email or web address] Bone [facility] Mineral Metabolism [address] [place] [address] Moustapha Katz MD [address] [place] [address] documented as of this encounter [...] documented as of this encounter Care Teams Pediatric Associate Relationship Specialty Start Date End Date Chris Medel MD [address] [place] [address] PCP - General 03/14/25 Ruma Hernández APRN [address] [place] [address] Referring Physician Gastroenterology 07/30/23 documented as of this encounter
--- OUTSIDE RECORDS SUMMARY | 2025-08-29 09:34 | XMS_ITS | Encounter Summary ---
Author Organization Healthcare Address [address] [place] [address] Care Team Providers Care Public Relations Intern Name Role Phone Ruma Hernández CHAIR CANER Unavailable [phone] Chris Medel MD Primary Care Provider [phone] Encounter Details Date Type Department Care Team (Late st Contact Info) Description 07/05/2025 Results Follow-Up [facility]plant Center [address] [place] [address] Meaghan Le, RN [facility] LIVER [id number] [address] [place] [address] Social History Tobacco Use Types [...] you attend [facility] or mosque services? More than 4 [...] and heating? Not hard at all 06/15/2025 [facility] of Occupat ional [facility] - Occupational Stress Questionnaire Answer Date [...] No 06/15/2025 Housing Stability Vital Sign Answer Franscio e Recorded In the last 12 months, was t here a time when you were not able to pay the mortgage or rent on time? No 06/15/2025 In the past 12 months, how m any times have you moved where you were living? 0 06/15/2025 At any time in the past 12 m [facility], were you homeless or living in [...] drink first t luisa in the morning (EYE-EDUCATION REPORTER) to steady your nerves or to get rid of a hangover? 0 06/14/2025 CAGE Questionnaire Score 0 025 Utilities Answer Date Recorded In the past 12 months has th [employer], gas, oil, or water [employer] threatened to shut off services in [...] Description 09/12/2025 8:30 AM EDT Clinical Support [facility] Transplant [place] [address] [facility] [address] [place] [address] 09/12/2025 10:00 AM EDT Office Visit [facility] [place] [address] [place] [address] Portia Maguire MD [address] [facility] [address] [place] [address] 10/03/2025 12:45 PM EST Office Visit Medical Office Building Urology [address] [facility], [address] [place] [address] Suhail Brock MD [address] [facility] [address] [place] [address] 10/18/2025 4:20 PM EST Office Visit Professional [employer] [place] [facility] Mineral Metabolism [address] [facility], [address] [place] [address] Moustapha Katz MD [address] [facility] [address] [place] [address] documented as of this encounter [...] of this encounter Care Teams Public Relations Intern Relationship Specialty Start Date End Date Chris Medel MD [address] [place] [address] PCP - General 03/14/25 Ruma Hernández APRN [address] [place] [address] Referring Physician Gastroenterology 07/30/23 documented as of this encounter
--- OUTSIDE RECORDS SUMMARY | 2025-08-29 09:34 | XMS_ITS | Encounter Summary ---
Author Organization Healthcare Address [address] [place] [address] Care Team Providers Care Knife Sharpener Name Role Phone Ruma Hernández CASE MAKING MACHINE OPERATOR Unavailable [phone] Chris Medel MD Primary Care Provider [phone] Encounter Details Date Type Department Care Team (Late st Contact Info) Description 06/14/2025 Results Follow-Up [facility] [address] [place] [address] Meaghan Le, RN [facility] LIVER [id number] [address] [place] [address] Social History Tobacco Use Types [...] do you attend [facility] or rastafari services? More than 4 [...] [facility] of Occupat ional [facility] - Occupational Stress Questionnaire Answer [...] in the past 12 m [facility], were you homeless or living [...] first t luisa in the morning (EYE-LINE HELPER) to steady your nerves or to get rid of a hangover? 0 06/14/2025 CAGE Questionnaire Score 0 025 Utilities Answer Date Recorded In the past 12 months has [employer], gas, oil, or water [employer] threatened to shut off services in [...] Description 09/12/2025 8:30 AM EDT Clinical Support [facility] [address] [place] [address] 09/12/2025 10:00 AM EDT Office Visit [facility] [address] [place] [address] Portia Maguire MD [address] [place] [address] 10/03/2025 12:45 PM EST Office Visit Medical Office Building Urology [address], [address] [place] [address] Suhail Brock MD [address] [facility] [address] [place] [address] 10/18/2025 4:20 PM EST Office Visit Professional [employer] [place] [facility] Mineral Metabolism [address] [facility], [address] [place] [address] Moustapha Katz MD [address] [facility] [address] [place] [address] documented as of this encounter [...] documented as of this encounter Care Teams Knife Sharpener Relationship Specialty Start Date End Date Chris Medel MD [address] [place] [address] PCP - General 03/14/25 Ruma Hernández APRN 1780 [facility] [address] [place] [address] Referring Physician Gastroenterology 07/30/23 documented as of this encounter
--- OUTSIDE RECORDS SUMMARY | 2025-08-29 09:34 | XMS_ITS | Encounter Summary ---
Author Organization [facility] Address [address] [place] [address] Care Team Providers Care Dance Therapist Name Role Phone KaronUrban Hosea CAMARA Primary Care Provider [phone] Encounter Details Date Type Department Care Team (Late st Contact Info) Description 10/14/2023 Telephone [facility] GA[facility] [address] [facility] [address] [place] [address] Ruma Hernández, TONGUE PRESSER [address] [facility] [address] [place], [place] [address] Social History Tobacco Use Types Packs/Day Years [...] on filedocumented in this encounter Care Teams Dance Therapist Relationship Specialty Start Date End Date Urban Brantley DO [address] [place] [address] PCP - General Internal Medicine 03/22/23 documented as of this encounter
--- OUTSIDE RECORDS SUMMARY | 2025-08-29 09:34 | XMS_ITS | Encounter Summary ---
[facility] Organization [facility] Address [address] [place] [address] Care Team Providers Care Food Assembler Kitchen Name Role Phone KaronUrban Hosea CAMARA Primary Care Provider [phone] Encounter Details Date Type Department Care Team (Late st Contact Info) Description 10/14/2023 Telephone [facility] GASTRO[facility]OLOGY [address] [facility] 202 [place] [address] Ruma Hernández, BARBER 1780 [facility] [address] [place], [place] [address] Social History Tobacco Use Types Packs/Day Years [...] on filedocumented in this encounter Care Teams Food Assembler Kitchen Relationship Specialty Start Date End Date Urban Brantley DO [address] [place] [address] PCP - General Internal Medicine 03/22/23 documented as of this encounter
--- OUTSIDE RECORDS SUMMARY | 2025-08-29 09:35 | XMS_ITS ---
Author Organization [facility] Address [address] 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
--- OUTSIDE RECORDS SUMMARY | 2025-08-29 09:35 | XMS_ITS | Encounter Summary ---
Author Organization [facility] Address [address] [place] [address] Care Team Providers Care Metal Furniture Repairer Name Role Phone Unavailable Primary Care Provider [...] release of HIV test results or diagnoses. [id number] Health Encounter Details Date Type Department Care Team (Late st Contact Info) Description 08/13/2025 Telephone [facility] Liver Transplant at [address] [address] Cori Dover MA Social History Tobacco Use [...]
--- OUTSIDE RECORDS SUMMARY | 2025-08-29 09:35 | XMS_ITS | Encounter Summary ---
Author Organization Healthcare Address [address] [place] [address] Care Team Providers Care Animal Husbandry Professor Name Role Phone Ruma Hernández HEAD OF HISTORY Unavailable Chris Medel MD Primary Care Provider [phone]- [phone] Encounter Details Date Type Department Care Team (Late st Contact Info) Description 06/29/2025 Results Follow-Up [facility] Transplant Center [address] [place] [address] Meaghan Le, RN [facility] LIVER [id number] [address] [place] [address] Social History Tobacco [...] often do you attend [facility] or anabaptism services? More than 4 [...] How often do you attend chur or anabaptism services? More than 4 times [...] 06/15/2025 [facility] of Occupat ional [facility] - Occupational Stress Questionnaire Answer Date Recorded [...] in the past 12 m [facility], were you homeless or living in [...] first t luisa in the morning (EYE-SOFTWARE ENGINEERING SPECIALIST) to steady your nerves or to get rid of a hangover? 0 06/14/2025 CAGE Questionnaire Score 0 025 Utilities Answer Date Recorded In the past 12 months has th [employer], gas, oil, or water [employer] threatened to shut off services in [...] Description 09/12/2025 8:30 AM EDT Clinical Support [facility] Transplant [place] [address] [facility] [address] [place] [address] 09/12/2025 10:00 AM EDT Office Visit [facility] [place] [address] [place] [address] Portia Maguire MD [address] [facility] [address] [place] [address] 10/03/2025 12:45 PM EST Office Visit Medical Office Building Urology [address] [facility], [address] [place] [address] Suhail Brock MD [address] [facility] [address] [place] [address] 10/18/2025 4:20 PM EST Office Visit Professional [employer] [place] Bone [facility] Mineral Metabolism [address] [facility], [address] [place] [address] Moustapha Katz MD [address] [facility] [address] [place] [address] documented as of this encounter [...] documented as of this encounter Care Teams Animal Husbandry Professor Relationship Specialty Start Date End Date Chris Medel MD [address] [place] [address] PCP - General 03/14/25 Ruma Hernández APRN [address] [place] [address] Referring Physician Gastroenterology 07/30/23 documented as of this encounter
--- OUTSIDE RECORDS SUMMARY | 2025-08-29 09:35 | XMS_ITS | Encounter Summary ---
Author Organization [facility] Address [address] [place] [address] Care Team Providers Care Pipe Welder Name Role Phone Unavailable Primary Care Provider [...] release of HIV test results or diagnoses. [id number] Health Encounter Details Date Type Department Care Team (Late st Contact Info) Description 08/01/2025 Chart Note [facility] Liver Transplant at [address] [address] Chapito Alcantar RN Referral for liver transplant [...]
--- OUTSIDE RECORDS SUMMARY | 2025-08-29 09:35 | XMS_ITS | Encounter Summary ---
Author Organization [facility] Address [address] [place] [address] Care Team Providers Care Morals Squad Police Officer Name Role Phone Unavailable Primary Care Provider [...] release of HIV test results or diagnoses. [id number] Health Encounter Details Date Type Department Care Team (Late st Contact Info) Description 08/13/2025 Telephone [facility] Liver Transplant at [address] [address] Cori Dover MA Social History Tobacco Use [...]
--- OUTSIDE RECORDS SUMMARY | 2025-08-29 09:35 | XMS_ITS | Encounter Summary ---
Author Organization Healthcare Address [address] [place] [address] Care Team Providers Care Brick Extruder Operator Name Role Phone Ruma Hernández FLOWER CHENILLER Unavailable [phone] Chris Medel MD Primary Care Provider [phone] Encounter Details Date Type Department Care Team (Late st Contact Info) Description 06/21/2025 Results Follow-Up [facility] [address] [place] [address] Meaghan Le, RN [facility] LIVER IKO-KZ-NLPKA [address] [place] [address] Social History Tobacco Use Types [...] week 02/19/2025 How often do you attend [facility] or adventist services? More than 4 times [...] and heating? Not hard at all 06/15/2025 [facility]at ional [facility] - Occupational Stress Questionnaire Answer [...] drink first t luisa in the morning (EYE-DEMAND PLANNING MANAGER) to steady your nerves or to get rid of a hangover? 0 06/14/2025 CAGE Questionnaire Score 0 025 Utilities Answer Date Recorded In the past 12 months has [employer] electric, gas, oil, or water [employer] threatened to shut off services in [...] going to have a para tomorrow at [facility]. He is only on 40/100 - if they have to drain him do you want to increase his diuretics? documented in this encounter Plan of Treatment Upcoming Encounters Date Type Department Care Team (Late st Contact Info) Description 09/12/2025 8:30 AM EDT Clinical Support [facility] [address] [facility] [address] [place] [address] 09/12/2025 10:00 AM EDT Office Visit [facility] [place] [address] [facility] [address] [place] [address] Portia Maguire MD [address] [facility] [address] [place] [address] 10/03/2025 12:45 PM EST Office Visit Medical Office Building Urology [address] [facility], [address] [place] [address] Suhail Brock MD [address] [facility] [address] [place] [address] 10/18/2025 4:20 PM EST Office Visit [facility] [address] [facility], [address] [place] [address] Moustapha Katz MD [address] [facility] [address] [place] [address] documented as of this encounter [...] documented as of this encounter Care Teams Brick Extruder Operator Relationship Specialty Start Date End Date Chris Medel MD [address] [place] [address] PCP - General 03/14/25 Ruma Hernández APRN [address] [place] [address] [address] [place], [place] [id number] Referring Physician Gastroenterology 07/30/23 documented as of this encounter
--- OUTSIDE RECORDS SUMMARY | 2025-08-29 09:35 | XMS_ITS | Encounter Summary ---
Author Organization Healthcare Address [address] [place] [address] Care Team Providers Care Cloth Mercerizing Supervisor Name Role Phone Urban Brantley DO Primary Care Provider [phone] Ruma Hernández HOSE HANDLER Unavailable [phone] Chris Medel MD Primary Care Provider [phone] Encounter Details Date Type Department Care Team (Late st Contact Info) Description 03/22/2023 Orders Only External Location [address] [place] [address] Provider, External Social History Tobacco Use Types [...] 09/12/2025 8:30 AM EDT Clinical Support [facility] [place] [address] [address] 09/12/2025 10:00 AM EDT Office Visit [facility] [place] [address] [address] Portia Maguire MD [address] [place] [address] 10/03/2025 12:45 PM EST Office Visit Medical Office Building Urology [address] [facility], [address] [place] [address] Suhail Brock MD [address] [place] [address] 10/18/2025 4:20 PM EST Office Visit Professional [facility] [place] [facility] [address] [facility], [address] [place] [address] Moustapha Katz MD [address] [facility] [address] [place] [address] documented as of this encounter [...] documented as of this encounter Care Teams Cloth Mercerizing Supervisor Relationship Specialty Start Date End Date Urban Brantley DO [address] [place] [address] PCP - General 07/30/23 03/13/25 Chris Medel MD [address] [place] [address] PCP - General 03/14/25 Ruma Hernández APRN [address] [facility] [address] [place], [place] [address] Referring Physician Gastroenterology 07/30/23 documented as of this encounter
--- OUTSIDE RECORDS SUMMARY | 2025-08-29 09:35 | XMS_ITS | Encounter Summary ---
Author Organization Healthcare Address [address] [place] [address] Care Team Providers Care Expert Medical Writer Name Role Phone Urban Brantley DO Primary Care Provider [phone] Ruma Hernández EQUAL OPPORTUNITY SPECIALIST Unavailable [phone] Chris Medel MD Primary Care Provider [phone] Encounter Details Date Type Department Care Team (Late st Contact Info) Description 03/22/2023 Orders Only External Location [address] [place] [address] Provider, External Social History Tobacco Use Types [...] Description 09/12/2025 8:30 AM EDT Clinical Support [facility] [place] [address] [address] 09/12/2025 10:00 AM EDT Office Visit [facility] [place] [address] [address] Portia Maguire MD [address] [place] [address] 10/03/2025 12:45 PM EST Office Visit Medical Office Building Urology [address] [facility], [address] [place] [address] Suhail Brock MD [address] [place] [address] 10/18/2025 4:20 PM EST Office Visit Professional [facility] [place] [facility] [address] [facility], [address] [place] [address] Moustapha Katz MD [address] [facility] [address] [place] [address] documented as of this encounter [...] documented as of this encounter Care Teams Expert Medical Writer Relationship Specialty Start Date End Date Urban Brantley DO [address] [place] [address] PCP - General 07/30/23 03/13/25 Chris Medel MD [address] [place] [address] PCP - General 03/14/25 Ruma Hernández APRN [address] [facility] [address] [place], [place] [address] Referring Physician Gastroenterology 07/30/23 documented as of this encounter
--- OUTSIDE RECORDS SUMMARY | 2025-08-29 09:35 | XMS_ITS | Encounter Summary ---
Author Organization Healthcare Address [address] [place] [address] Care Team Providers Care Loan Officer Name Role Phone Urban Brantley DO Primary Care Provider [phone] Ruma Hernández AUTOMOTIVE ENGINEER Unavailable Chris Medel MD Primary Care Provider [phone] Encounter Details Date Type Department Care Team (Late st Contact Info) Description 12/30/2023 Orders Only External Location [address] [place] [address] Urban Stafford MD [address] [facility] [address] [place] [address] Social History Tobacco Use Types Packs/Day [...] Clinical Support [facility] [place] [address] [place] [address] 09/12/2025 10:00 AM EDT Office Visit [facility] [place] [address] [place] [address] Portia Maguire MD [address] [place] [address] 10/03/2025 12:45 PM EST Office Visit Medical Office Building Urology [address] [facility], [address] [place] [address] Suhail Brock MD [address] [place] [address] 10/18/2025 4:20 PM EST Office Visit Professional [facility] [place] [facility] [address] [facility], [address] [place] [address] Moustapha Katz MD [address] [place] [address] documented as of this encounter [...] documented as of this encounter Care Teams Loan Officer Relationship Specialty Start Date End Date Urban Brantley DO [address] [place] [address] PCP - General 07/30/23 03/13/25 Chris Medel MD [address] [place] [address] PCP - General 03/14/25 Ruma Hernández APRN [address] [place] [address] Referring Physician Gastroenterology 07/30/23 documented as of this encounter
--- OUTSIDE RECORDS SUMMARY | 2025-08-29 09:35 | XMS_ITS | Encounter Summary ---
Author Organization Healthcare Address [address] [place] [address] Care Team Providers Care Produce Laborer Name Role Phone Ruma Hernández MUD MIXER OPERATOR Unavailable [phone] Chris Medel MD Primary Care Provider [phone] Encounter Details Date Type Department Care Team (Late st Contact Info) Description 06/05/2025 Results Follow-Up [facility] [address] [place] [address] Meaghan Le, RN [facility] LIVER [id number] [address] [place] [address] Social History Tobacco Use Types [...] attend [facility] or latter day services? More than 4 times per year 02/19/2025 Do you belong to any clubs o r organizations such as anabaptism groups, unions, [employer] or athletic groups, or school groups? Yes [...] How often do you attend chur or latter day services? More than 4 [...] heating? Not hard at all 06/15/2025 [facility]at ional Health - [...] any time in the past 12 m [facility], were you homeless or [...] drink first t luisa in the morning (EYE-PUG MILL OPERATOR) to steady your nerves or to get rid of a hangover? 0 06/14/2025 CAGE Questionnaire Score 0 025 Utilities Answer Date Recorded In the past 12 months has th e [employer], gas, oil, or water [employer] threatened to shut off services in your [...] Upcoming Encounters Date Type Department Care Team ([facility] st Contact Info) Description 09/12/2025 8:30 AM EDT Clinical Support [facility] [address] [place] [address] 09/12/2025 10:00 AM EDT Office Visit [facility] [address] [place] [address] Portia Maguire MD [address] [place] [address] 10/03/2025 12:45 PM EST Office Visit Medical Office Building Urology [facility] [address] [facility], [address] [place] [address] Suhail Brock MD [address] [place] [address] 10/18/2025 4:20 PM EST Office Visit [facility] [address] [place] [address] Moustapha Katz MD [address] [place] [address] documented as of this [...] documented as of this encounter Care Teams Produce Laborer Relationship Specialty Start Date End Date Chris Medel MD [address] [place] [address] PCP - General 03/14/25 Ruma Hernández APRN [address] [facility] [address] [place] [address] Referring Physician Gastroenterology 07/30/23 documented as of this encounter
--- OUTSIDE RECORDS SUMMARY | 2025-08-29 09:35 | XMS_ITS | Encounter Summary ---
Author Organization [facility] Address [address] [place] [address] Care Team Providers Care Nurse Reviewer Name Role Phone Unavailable Primary Care Provider [...] release of HIV test results or diagnoses. [id number] Health Encounter Details Date Type Department Care Team (Late st Contact Info) Description 08/13/2025 Chart Note [facility] at [address] [address] Ailin Wells Patient is financially cleared for [...] for patient/donor needs to be done at [facility] documented in this encounter Plan of Treatment Not on file documented as of this encounter Visit Diagnoses Not on filedocumented in this encounter
--- OUTSIDE RECORDS SUMMARY | 2025-08-29 09:35 | XMS_ITS | Encounter Summary ---
Author Organization [facility] Address [address] [place] [address] Care Team Providers Care Operations And Maintenance Technican Name Role Phone Unavailable Primary Care Provider [...] release of HIV test results or diagnoses. [id number] Health Encounter Details Date Type Department Care Team (Late st Contact Info) Description 08/02/[address] [facility] Liver Transplant at [address] [address] Cori Dover MA Liver transplant referral entered. [...]
--- OUTSIDE RECORDS SUMMARY | 2025-08-29 09:35 | XMS_ITS | Data Portability ---
Author Organization [place] [facility] [place] [facility] [place] [facility] Address [address] [place] [address] Assessment Encounter Date Assessment Date Assessment LastModified [...] in punctuate muhammad and or spelling, etc. [email or web address] Not available 2023 11:56:25 Plan of Treatment [...] WBC 4.1 K/uL 4.0-10 .5 Not Available [facility] [address] [place], [address], 02/10/2023 10:08:24 02/11/20 23 02/10/2023 CBC AUTO NO DIFF (HEMO GRAM) RBC 4.0 M/mm3 4.7-6. 1 low Not Available [facility] ([facility] [address] [place], [address], 02/10/2023 10:08:24 02/11/20 23 02/10/2023 CBC AUTO NO DIFF (HEMO GRAM) HGB 13.8 gm/dL 13.5-1 8.0 Not Available [facility] ([facility]) [address] [facility], [place], [address], 02/10/2023 10:08:24 02/11/20 23 02/10/2023 CBC AUTO NO DIFF (HEMO GRAM) HCT 40.3 % 42.0-5 2.0 low Not Available [facility] ([facility] [address] [place], [address], 02/10/2023 10:08:24 02/11/20 23 02/10/2023 CBC AUTO NO DIFF (HEMO GRAM) MCV 101.8 fL 78-100 high Not Available [facility] ([facility] [address] [place], [address], 02/10/2023 10:08:24 02/11/20 23 02/10/2023 CBC AUTO NO DIFF (HEMO GRAM) MCH 34.8 pg 27-31 high Not Available [facility] ([facility]) [address], [place], [address], 02/10/2023 10:08:24 02/11/20 23 02/10/2023 CBC AUTO NO DIFF (HEMO GRAM) MCHC 34.2 g/dL 32-36 Not Available [facility] ([facility] [address], [place], [address], 02/10/2023 10:08:24 02/11/20 23 02/10/2023 CBC AUTO NO DIFF (HEMO GRAM) RDW 15.9 % 11.5-1 4.0 high Not Available [facility] ([facility] [address], [place], [address], 02/10/2023 10:08:24 02/11/20 23 02/10/2023 CBC AUTO NO DIFF (HEMO GRAM) platelet count 71 K/uL 150-45 0 low Not Available [facility] ([facility] [address] [facility], [place], [address], 02/10/2023 10:08:24 02/11/20 23 02/10/2023 CBC AUTO NO DIFF (HEMO GRAM) manual differential NO Not Available [facility] ([facility] [address] [place], [address], 02/10/2023 10:08:24 02/11/20 23 02/10/2023 COMP METAB OLIC PANEL sodium 139 mmol/ L 136-14 5 Not Available [facility] [address] [place], [address], 02/10/2023 10:40:35 02/11/20 23 02/10/2023 COMP METAB OLIC PANEL potassium 3.7 mmol/ L 3.6-5. 0 Not Available [facility] ([facility] [address], [place], [address], 02/10/2023 10:40:35 02/11/20 23 02/10/2023 COMP METAB OLIC PANEL chloride 105 mmol/ L 98-107 Not Available [facility] [address], [place], [address], 02/10/2023 10:40:35 02/11/20 23 02/10/2023 COMP METAB OLIC PANEL carbon dioxide 26.3 mmol/ L 21.0-3 2.0 Not Available [facility] ([facility] [address], [place], [address], 02/10/2023 10:40:35 02/11/20 23 02/10/2023 COMP METAB OLIC PANEL anion gap 11.4 Not Available [facility] ([facility] [address] , [place], [address], 02/10/2023 10:40:35 02/11/20 23 02/10/2023 COMP METAB OLIC PANEL glucose 108 mg/dL 70-120 Not Available [facility] ([facility] [address] , [place], [address], 02/10/2023 10:40:35 02/11/20 23 02/10/2023 COMP METAB OLIC PANEL BUN 5 mg/dL 7-18 low Not Available [facility] ([facility] [address] , [place], [address], 02/10/2023 10:40:35 02/11/20 23 02/10/2023 COMP METAB OLIC PANEL creatinine 0.7 mg/dL 0.6-1. 3 Not Available [facility] ([facility] [address] , [place], [address], 02/10/2023 10:40:35 02/11/20 23 02/10/2023 COMP METAB OLIC PANEL glomerular filtration rate >60 mlper min 60- Not Available [facility] [address], [place], [address], 02/10/2023 10:40:35 02/11/20 23 02/10/2023 COMP METAB OLIC PANEL total protein 7.4 g/dL 6.4-8. 2 Not Available [facility] ([facility] [address], [place], [address], 02/10/2023 10:40:35 02/11/20 23 02/10/2023 COMP METAB OLIC PANEL albumin 2.5 g/dL 3.4-5. 0 low Not Available [facility] ([facility] [address], [place], [address], 02/10/2023 10:40:35 02/11/20 23 02/10/2023 COMP METAB OLIC PANEL globulin 4.9 Not Available [facility] [address], [place], [address], 02/10/2023 10:40:35 02/11/20 23 02/10/2023 COMP METAB OLIC PANEL alb/glob ratio 0.5 0.7-2 low Not Available [facility] [address], [place], [address], 02/10/2023 10:40:35 02/11/20 23 02/10/2023 COMP METAB OLIC PANEL calcium 8.1 mg/dL 8.5-10 .5 low Not Available [facility] [address] , [place], [address], 02/10/2023 10:40:35 02/11/20 23 02/10/2023 COMP METAB OLIC PANEL bilirubin total 4.00 mg/dL 0.10-1 .00 high Not Available [facility] [address] , [place], [address], 02/10/2023 10:40:35 02/11/20 23 02/10/2023 COMP METAB OLIC PANEL AST (SGOT) 75 U/L 0-37 high Not Available [facility] ([facility] [address], [place], [address], 02/10/2023 10:40:35 02/11/20 23 02/10/2023 COMP METAB OLIC PANEL ALT (SGPT) 38 U/L 0-65 Not Available [facility] ([facility] [address], [place], [address], 02/10/2023 10:40:35 02/11/20 23 02/10/2023 COMP METAB OLIC PANEL alk phosphatase 334 U/L 46-116 high Not Available [facility] ([facility] [address], [place], [address], 02/10/2023 10:40:35 Result Notes None recorded. Procedures Surgical History Date Name Laterality Status Provider Name and Address Organization Details Recorded Time Hernia Repair completed Rafa CARLOS [facility] [place] 2023 11:10:15 Imaging Results None recorded. Procedure [...] Updated DateTime 2023 170.18 cm 30.2 kg/m2 42236.33 g 77 /min 154/94 mm[Hg] Rafa CARLOS [facility] [place] 2023 11:23:09 Social History Question Answer Notes LastModified by Organizat ion Details LastModified Time Tobacco Smoking Status Former Smoker TERRANCE Quintana [facility] [place] 2023 11:10:32 When Did You Quit Smoking? 6-10yearssin [facility] Information not available 2023 Sex: Unknown Functional Status None recorded. Mental Status None recorded. Family History Nothing Reported. Medical History No medical history recorded. Past Encounters Encounter ID Performer Location Encounter Start Date Encounter Closed Date Diagnosis/Indication Diagnosis SNOMED-CT Code Diagnosis ICD10 Code Diagnosis IMO Codes Diagnosis Note [id number] Jeffrey Chu MD [facility] [address] [facility] [address] [place] [address] 2023 10:52:58 2023 11:57:37 Left inguinal hernia 037053248 K40.90 Umbilical hernia [id number] [id number] K42.9 Health Concerns Section Related Observation LastModified by Organization Detai ls LastModified Time None Recorded Concern Status LastModified by Organization Details LastModified Time None Recorded Advance Directives Directive None Recorded Payers Insurance Date Sequence Insurance Name Policy Number Policy Mcdaniel Covered Member ID Mcdaniel Member ID Guarantor Name 2023 1 [employer] David Pop [id number] David Pop 02/12/2023 1 [employer] (POS) David Pop [id number] David Pop
--- OUTSIDE RECORDS SUMMARY | 2025-08-29 09:35 | XMS_ITS | Clinical Summary ---
Author Organization [facility] Address [address] 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 180 capsule 3 5 03/14/20 26 Active spironolactone (Aldactone) 50 MG tabletIndication s:Bilateral leg edema,Cirrhosis of liver with ascites, unspecified hepatic cirrhosis type,Other ascites Take 3 tablets by mouth daily. 270 each 1 5 12/22/19 26 Active calcitriol (Rocaltrol) 0.25 MCG capsule Take 1 capsule by mouth 5 times a week. Once daily Wednesday through Wednesday 20 capsule 5 5 Active Active Problems Problem Noted Date Diagnosed [...] Encounters Date Type Department Care Team Description 08/20/2025 Results Follow-Up [facility] [place] [address] [place] [address] Meaghan Le RN 08/01/2025 Results Follow-Up [facility] [place] [address] [place] [address] Meaghan Le RN 07/19/2025 Results Follow-Up [facility] [place] [address] [place] [address] Meaghan Le RN 07/11/2025 10:30 AM EDT Office Visit [facility] [place] [address] [place] [address] Portia Maguire MD Cirrhosis of liver with ascites, unspecified hepatic cirrhosis type (CMS/HCC) (Primary Dx); Other ascites; Pre-liver transplant, listed; Alcoholic cirrhosis, unspecified whether ascites present (CMS/HCC); Hemochromatosis associated with compound heterozygous mutation in HFE gene; Alcohol use disorder, moderate, in sustained remission 07/11/2025 9:30 AM EDT Social Work [facility] [address] [address] Liliane Jacobs LCSW 07/11/2025 Travel 07/05/2025 Results Follow[facility] [address] [address] Meaghan Le, RN 06/29/2025 Results Follow-Up [facility] [address] [address] Meaghan Le, RN 06/25/2025 Telephone [facility] [address] [address] Meaghan Le, RN 06/21/2025 Results Follow-Up [facility] [address] [place] [phone] Meaghan Le, RN 06/20/2025 Telephone [facility] [address] [address] Meaghna Le, RN 06/15/2025 11:59 PM EDT Anesthesia Event [facility] [address] [place] [address] Mary Castellon PA Benson, Cathryn M, SYSTEMS INTEGRATION ANALYST 06/14/2025 3:47 PM EDT - 06/15/2025 6:14 PM EDT Hospital Encounter [facility] Inpatient [address] [place] [address] Luis Angel Bee MD Alcoholic cirrhosis, unspecified whether ascites present (CMS/HCC) (Primary Dx) Discharge Disposition: Home or Self Care 06/14/2025 Travel 06/14/2025 Results Follow-[facility] [address] [place] [phone] Meaghan Le, RN 06/14/2025 Results Follow-Up [facility] [address] [place] [phone] Meaghan Le, RN 06/13/2025 12:57 PM EDT - 06/13/2025 11:59 PM EDT Hospital Encounter [facility] Radiology [address] [place] [phone] Chris Knott RN Pre-liver transplant, listed Discharge Disposition: Home or Self Care 06/13/2025 10:36 AM EDT - 06/13/2025 12:56 PM EDT Hospital Encounter Cardiac Imaging [address] [place] [phone] Pre-liver transplant, listed Discharge Disposition: Home or Self Care 06/13/2025 9:56 AM EDT - 06/13/2025 10:35 AM EDT Hospital Encounter [facility] [address] [place] [address] Alcoholic cirrhosis, unspecified whether ascites present (CMS/HCC) Discharge Disposition: Home or Self Care 06/13/2025 8:00 AM EDT Office Visit [facility] [place] [id number] [phone] Portia Maguire MD Alcoholic cirrhosis, unspecified whether [...] - 06/13/2025 9:55 AM EDT Hospital Encounter [facility] [address] [place] [address] Pre-liver transplant, listed Discharge Disposition: Home or Self Care 06/13/2025 Telephone [facility] [address] [place] [phone] Zeferino Trejo, PharmD 06/13/2025 Travel 06/08/2025 12:20 PM EDT Office Visit [facility] [address] , [address] [place] [address] Moustapha Katz MD Age-related osteoporosis without current pathological fracture (Primary Dx) 06/08/2025 8:35 AM EDT - 06/08/2025 11:59 PM EDT Hospital Encounter [facility] [address], [address] [place] [address] Other osteoporosis without current pathological fracture Discharge Disposition: Home or Self Care 06/08/2025 Travel 06/07/2025 Telephone [facility] [address], [address] [place] [address] Mary Chatman LPN 06/06/2025 Telephone [facility] [address] [place] [address] Mell Masterson RN 06/05/2025 Travel 06/05/2025 Results Follow-[facility] [address] [facility] [address] [place] [address] Meaghan Le, RN from Last 3 Months [...] o r organizations such as scientologist groups, [employer], Snippets or athletic groups, or school groups? Yes [...] 06/15/2025 How often do you attend [facility] or oriental orthodox services? More than 4 times per year 06/15/2025 Do you belong to any clubs o r organizations such as scientologist groups, [employer], Sn[employer] or athletic groups, or school groups? 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 0 06/14/2025 CAGE Questionnaire Score 0 025 Utilities Answer Date Recorded In the past 12 months has th [employer], gas, oil, or water company threatened to [...] Support [facility] [address] [place] [address] 09/12/2025 10:00 AM EDT Office Visit [facility] [address] [place] [address] Portia Maguire MD [address] [place] [address] 10/03/2025 12:45 PM EST Office Visit Medical Office Building Urology [address] [facility], [address] [place] [address] Suhail Brock MD [address] [place] [address] 10/18/2025 4:20 PM EST Office Visit [facility] [place] [facility] [address] [facility], [address] [place] [address] Moustapha Katz MD [address] [facility] [address] [place] [address] Health Maintenance Due Date Last [...] - Risk 60-74 years 1-dose series) 2021 [id number] Vaccine (1 - season) 2025 UKY-Influenza Vaccine [...] Diagnosis Comments COMPREHENSIVE METABOLIC PANEL, PLASMA Routine 08/15/2025 CBC W/O DIFFERENTIAL Routine 08/15/2025 PROTHROMBIN TIME(PT) / INR Routine 08/15/2025 COMPREHENSIVE METABOLIC PANEL, PLASMA Routine 08/01/2025 CBC [...] Last 3 Months Results * Prothrombin Time/INR (08/15/2025) Only the most recent of10 resultswithin the time period is included. External Prothrombin Time (PT) 16.7 External INR - Internormal Ratio 1.55 Blood Venous blood specimen / Unknown 08/15/2025 Result [facility] Provider LAB BLOOD ORDERABLES Final R esult * CBC W/O Differential (08/15/2025) Only the most recent of9 resultswithin the time period is included. Pathologist [facility] External WBC 3.3 External Red Blood Cell (RBC) 3.24 External Hemoglobin (Hgb) 10.90 External Hematocrit (Hct) 32.9 External Platelet Count (Plt) 58 Blood Venous blood specimen / Unknown 08/15/2025 Result [facility] LAB BLOOD ORDERABLES Final R esult * Comprehensive Metabolic Panel, Plasma (08/15/2025) Only the most recent of10 resultswithin the time period is included. Pathologist [facility] [place] External Glucose 93 External BUN 14 External Creatinine Blood 0.70 mg/dL External Sodium (Na) 138 mEq/L External Potassium (K) 4.1 External Chloride (Cl) 110 External Carbon Dioxide (CO2) 28 External Anion Gap (AG) 4.1 External Calcium (Ca) 8.4 External Total Protein 6.1 External Albumin 2.2 g/dL External AST (SGOT) 59 External ALT (SGPT) 46 External Alkaline Phosphatase 193 External Bilirubin Total 5.4 mg/dL External Estimated GFR 114 External EGFR (If AFR/AM) 137 Blood Venous blood specimen / Unknown 08/15/2025 Result [facility] Provider LAB BLOOD ORDERABLES Final R esult * Pain Management, Quantitative Urine Drug Testing (07/11/2025 8:27 AM EDT) Only the most recent of2 resultswithin the time period is included. Pathologist [facility] Alpha OH Alprazolam <20 <20 ng/mL 07/12 1:45 PM EDT [facility] Alpha OH Midazolam <20 <20 ng/mL 2024 1:45 PM EDT [facility] Alpha [place] Triazolam <20 <20 ng/mL 2024 1:45 PM EDT [facility] Alprazolam <10 <10 ng/mL 07/12/2025 1:45 PM EDT [facility] Aminoclonazepam <20 <20 ng/mL 1:45 PM EDT [facility] Amphetamine <50 <50 ng/mL 07/12/2025 1:45 PM EDT [facility] Benzoylecgonine <50 <50 ng/mL 1:45 PM EDT [facility] Buprenorphine <10 <10 ng/mL 07/12/2025 1:45 PM EDT [facility] Buprenorphine Glucuronide <50 <50 ng/mL 07/12/2025 1:45 PM EDT [facility] Butalbital <50 <50 ng/mL 07/12/2025 1:45 PM EDT [facility] 9 Carboxy THC <10 <10 ng/mL 07/12/2025 1:45 PM EDT [facility] 9 Carboxy THC Glucuronide <25 <25 ng/mL 07/12/2025 1:45 PM EDT [facility] Clonazepam <10 <10 ng/mL 07/12/2025 1:45 PM EDT [facility] Codeine <50 <50 ng/mL 07/12/2025 1:45 PM EDT [facility] Codeine Glucuronide <50 <50 ng/mL 07/12 1:45 PM EDT [facility] Cyclobenzaprine <50 <50 ng/mL 1:45 PM EDT [facility] Desmethyl Tramadol <50 <50 ng/mL 2024 1:45 PM EDT [facility] Diazepam <10 <10 ng/mL 07/12/2025 1:45 PM EDT [facility] EDDP - Methadone Metabolite <50 <50 ng/mL 07/12/2025 1:45 PM EDT [facility] Fentanyl <1 <1 ng/mL 07/12/2025 1:45 PM EDT [facility] Hydrocodone <50 <50 ng/mL 07/12/2025 1:45 PM EDT [facility] Hydromorphone <50 <50 ng/mL 07/12/2025 1:45 PM EDT [facility] Hydromorphone Glucuronide <50 <50 ng/mL 07/12/2025 1:45 PM EDT [facility] Lorazepam <20 <20 ng/mL 07/12/2025 1:45 PM EDT [facility] Lorazepam Glucuronide <50 <50 ng/mL 07/12/2025 1:45 PM EDT [facility] MDA <50 <50 ng/mL 07/12/2025 1:45 PM EDT [facility] MDMA <50 <50 ng/mL 07/12/2025 1:45 PM EDT [facility] Meperidine <50 <50 ng/mL 07/12/2025 1:45 PM EDT [facility] Methadone <50 <50 ng/mL 07/12/2025 1:45 PM EDT [facility] Methamphetamine <50 <50 ng/mL 1:45 PM EDT [facility] Methylphenidate <50 <50 ng/mL 1:45 PM EDT [facility] 6 Monoacetyl morphine <10 <10 ng/mL 07/12/2025 1:45 PM EDT [facility] Morphine <50 <50 ng/mL 07/12/2025 1:45 PM EDT [facility] Morphine Glucuronide <50 <50 ng/mL 06/16 1:45 PM EDT [facility] Naloxone <50 <50 ng/mL 07/12/2025 1:45 PM EDT [facility] Naloxone Glucuronide <50 <50 ng/mL 06/16 1:45 PM EDT [facility] Norbuprenorphine <10 <10 ng/mL 07/12/20 1:45 PM EDT [facility] Norbuprenorphine Glucuronide <50 <50 ng/mL 07/12/2025 1:45 PM EDT [facility] Nordiazepam <20 <20 ng/mL 07/12/2025 1:45 PM EDT [facility] Norfentanyl <2 <2 ng/mL 07/12/2025 1:45 PM EDT [facility] Normeperidine <50 <50 ng/mL 07/12/2025 1:45 PM EDT [facility] PCP Quant, Ur <50 <50 ng/mL 07/12/2025 1:45 PM EDT [facility] Phenobarbital <50 <50 ng/mL 07/12/2025 1:45 PM EDT [facility] Oxazepam <20 <20 ng/mL 07/12/2025 1:45 PM EDT [facility] Oxazepam Glucuronide <50 <50 ng/mL 06/16 1:45 PM EDT [facility] Oxycodone <50 <50 ng/mL 07/12/2025 1:45 PM EDT [facility] Oxymorphone <50 <50 ng/mL 07/12/2025 1:45 PM EDT [facility] Oxymorphone Glucuronide <50 <50 ng/mL 07/12/2025 1:45 PM EDT [facility] Secobarbital <50 <50 ng/mL 07/12/2025 1:45 PM EDT [facility] Tramadol <50 <50 ng/mL 07/12/2025 1:45 PM EDT [facility] Temazepam <20 <20 ng/mL 07/12/2025 1:45 PM EDT [facility] Temazepam Glucuronide <50 <50 ng/mL 07/12/2025 1:45 PM EDT [facility] Urine Urine specimen obtained by clean catch procedure / Unknown Non-blood Collection / Unknown 07/11/2025 8:27 AM EDT 07/11/2025 9:07 AM EDT Narrative [facility] - 07/12/2025 1:45 PM [...] laboratory. Test performed by LC-MS/MS at the [facility] Special [facility] Laboratory. This test was developed and its performance characteristics determined by [facility]. It has not been cleared or approved by the FDA. The laboratory is regulated under CLIA as qualified to perform high-complexity testing. This test is used for clinical purposes. Portia Maguire MD LAB URINE ORDERABLES Nadia l Result Performing Organization Address [facility] Co de Phone Number [facility] [address] [place] [address] * Nicotine Cotinine Metabolite (07/11/2025 8:27 AM EDT) Only the most recent of2 resultswithin the time period is included. NICOTINE <5 <5 ng/mL 07/12/2025 3:1 7 PM EDT [facility] Cotinine <5 <5 ng/mL 07/12/2025 3:1 7 PM EDT [facility] Blood Venous blood specimen / Unknown Venipuncture / Unknown 07/11/2025 8:27 AM EDT 07/11/2025 8:44 AM EDT Narrative [facility] - 07/12/2025 3:17 PM EDT Testing performed by LC-MS/MS at the [facility] Special Chemistry/Toxicology Laboratory. This test was developed and its performance characteristics determined by [facility]. This assay has not been cleared by the FDA. The laboratory is regulated under CLIA as qualified to perform high-complexity testing. This test is used for clinical purposes. Portia Maguire MD LAB BLOOD ORDERABLES Nadia l Result Performing Organization Address City/[facility]/ZIP Co de Phone Number [facility] [address] [place] [address] * Alcohol Urine (07/11/2025 8:27 AM EDT) Only the most recent of2 resultswithin the time period is included. Alcohol Urine Negative Negative 07/11/2025 1:32 PM EDT [facility] Urine Urine specimen obtained by clean catch procedure / Unknown Non-blood Collection / Unknown 07/11/2025 8:27 AM EDT 07/11/2025 9:03 AM EDT Narrative [facility] - 07/11/2025 1:32 PM EDT The correlation between urine and serum ethanol concentration is highly variable. Test performed by Gas Chromatography at the [facility] Special Chemistry Laboratory. This test was developed and its performance characteristics determined by [facility]. It has not been cleared or approved by the FDA.The laboratory is regulated under CLIA as qualified to perform high-complexity testing. This test is used for clinical purposes only. Portia Maguire MD LAB URINE ORDERABLES Nadia crockett Result [facility] [address] [place] [address] * (ABNORMAL) Comprehensive Urine Drug Screening, Qualitative Assay, >= 27 Drug Classes (58:27 AM EDT) Only the most recent of2 resultswithin the time period is included. Acetaminophen Positive(A) Negative 07/13/2025 1:39 AM EDT [facility] Alprazolam Negative Negative 07/13/2025 1:39 AM EDT [facility] Amantadine Negative Negative 07/13/2025 1:39 AM EDT [facility] Amitriptyline Negative Negative 07/13/2025 1:39 AM EDT [facility] Amphetamine Negative Negative 07/13/2025 1:39 AM EDT [facility] Atenolol Negative Negative 07/13/2025 1:39 AM EDT [facility] Benzoylecgonine Negative Negative 1:39 AM EDT [facility] Bisoprolol Negative Negative 07/13/2025 1:39 AM EDT [facility] Bupropion Negative Negative 07/13/2025 1:39 AM EDT [facility] Butalbital Negative Negative 07/13/2025 1:39 AM EDT [facility] Carbamazepine Negative Negative 07/13/2025 1:39 AM EDT [facility] Carisoprodol Negative Negative 07/13/2025 1:39 AM EDT [facility] Chlorpheniramine Negative Negative 07/13/20 1:39 AM EDT [facility] Citalopram Negative Negative 07/13/2025 1:39 AM EDT [facility] Clindamycin Negative Negative 07/13/2025 1:39 AM EDT [facility] Clonidine Negative Negative 07/13/2025 1:39 AM EDT [facility] Clopidogrel / Ticlopidine Negative Negative 07/13/2025 1:39 AM EDT [facility] Cocaethylene Negative Negative 07/13/2025 1:39 AM EDT [facility] Cocaine Negative Negative 07/13/2025 1:39 AM EDT [facility] Codeine Negative Negative 07/13/2025 1:39 AM EDT [facility] Cyclobenzaprine Negative Negative 1:39 AM EDT [facility] Desvenlafaxine Negative Negative 07/13/2025 1:39 AM EDT [facility] Dextromethorphan Negative Negative 07/13/20 1:39 AM EDT [facility] Diazepam Negative Negative 07/13/2025 1:39 AM EDT [facility] Diltiazem Negative Negative 07/13/2025 1:39 AM EDT [facility] Diphenhydramine Negative Negative 1:39 AM EDT [facility] Doxepine Negative Negative 07/13/2025 1:39 AM EDT [facility] Doxylamine Negative Negative 07/13/2025 1:39 AM EDT [facility] EDDP-Methadone metabolite Negative Negative 07/13/2025 1:39 AM EDT [facility] Fentanyl Negative Negative 07/13/2025 1:39 AM EDT [facility] Fluconazole Negative Negative 07/13/2025 1:39 AM EDT [facility] Fluoxetine Negative Negative 07/13/2025 1:39 AM EDT [facility] Guaifenesin Negative Negative 07/13/2025 1:39 AM EDT [facility] Haloperidol Negative Negative 07/13/2025 1:39 AM EDT [facility] Heroin/6-MARY Negative Negative 07/13/2025 1:39 AM EDT [facility] Hydrocodone Negative Negative 07/13/2025 1:39 AM EDT [facility] Hydroxyzine / Cetirizine metabolite Negative Negative 07/13/2025 1:39 AM EDT [facility] Ibuprofen Negative Negative 07/13/2025 1:39 AM EDT [facility] Imipramine Negative Negative 07/13/2025 1:39 AM EDT [facility] Ketamine Negative Negative 07/13/2025 1:39 AM EDT [facility] Labetolol Negative Negative 07/13/2025 1:39 AM EDT [facility] Lamotrigine Negative Negative 07/13/2025 1:39 AM EDT [facility] Levetiracetam Negative Negative 07/13/2025 1:39 AM EDT [facility] Lidocaine Negative Negative 07/13/2025 1:39 AM EDT [facility] MDA Negative Negative 07/13/2025 1:39 AM EDT [facility] MDMA Negative Negative 07/13/2025 1:39 AM EDT [facility] Memantine Negative Negative 07/13/2025 1:39 AM EDT [facility] Meperidine Negative Negative 07/13/2025 1:39 AM EDT [facility] Meprobamate Negative Negative 07/13/2025 1:39 AM EDT [facility] Metaxalone Negative Negative 07/13/2025 1:39 AM EDT [facility] Methamphetamine Negative Negative 1:39 AM EDT [facility] Methocarbamol Negative Negative 07/13/2025 1:39 AM EDT [facility] Methylecgonine Negative Negative 07/13/2025 1:39 AM EDT [facility] Metoclopramide Negative Negative 07/13/2025 1:39 AM EDT [facility] Metoprolol Negative Negative 07/13/2025 1:39 AM EDT [facility] Metronidazole Negative Negative 07/13/2025 1:39 AM EDT [facility] Midazolam Negative Negative 07/13/2025 1:39 AM EDT [facility] Midazolam Metabolite Negative Negative 07/13/2025 1:39 AM EDT [facility] Mirtazapine Negative Negative 07/13/2025 1:39 AM EDT [facility] Misc Test Result Negative Negative 07/13/20 1:39 AM EDT [facility] Naproxen Negative Negative 07/13/2025 1:39 AM EDT [facility] Nefazodone Negative Negative 07/13/2025 1:39 AM EDT [facility] Norfentanyl Negative Negative 07/13/2025 1:39 AM EDT [facility] Nortriptyline Negative Negative 07/13/2025 1:39 AM EDT [facility] Ordanstron Negative Negative 07/13/2025 1:39 AM EDT [facility] Oxcarbazepine Negative Negative 07/13/2025 1:39 AM EDT [facility] Oxycodone Negative Negative 07/13/2025 1:39 AM EDT [facility] Paroxethine Negative Negative 07/13/2025 1:39 AM EDT [facility] Phenobarbital Negative Negative 07/13/2025 1:39 AM EDT [facility] Phentermine Negative Negative 07/13/2025 1:39 AM EDT [facility] Phenytoin Negative Negative 07/13/2025 1:39 AM EDT [facility] Primidone Negative Negative 07/13/2025 1:39 AM EDT [facility] Promethazine Negative Negative 07/13/2025 1:39 AM EDT [facility] Propofol Negative Negative 07/13/2025 1:39 AM EDT [facility] Propranolol Negative Negative 07/13/2025 1:39 AM EDT [facility] Quetiapine Negative Negative 07/13/2025 1:39 AM EDT [facility] Quinine Negative Negative 07/13/2025 1:39 AM EDT [facility] Rantidine Negative Negative 07/13/2025 1:39 AM EDT [facility] Sertraline Negative Negative 07/13/2025 1:39 AM EDT [facility] Spironolactone Positive(A) Negative 1:39 AM EDT [facility] Tizanidine Negative Negative 07/13/2025 1:39 AM EDT [facility] Topiramate Negative Negative 07/13/2025 1:39 AM EDT [facility] Tramadol Negative Negative 07/13/2025 1:39 AM EDT [facility] Trazadone/ Trazadone metabolite Negative Negative 07/13/2025 1:39 AM EDT [facility] Trimethoprim Negative Negative 07/13/2025 1:39 AM EDT [facility] Valproic Acid Negative Negative 07/13/2025 1:39 AM EDT [facility] Venlafaxine Negative Negative 07/13/2025 1:39 AM EDT [facility] Verapamil Negative Negative 07/13/2025 1:39 AM EDT [facility] Zolpidem Negative Negative 07/13/2025 1:39 AM EDT [facility] Xylazine Negative Negative 07/13/2025 1:39 AM EDT [facility] Urine Urine specimen obtained by clean catch procedure / Unknown Non-blood Collection / Unknown 07/11/2025 8:27 AM EDT 07/11/2025 9:07 AM EDT us Portia Maguire MD LAB URINE ORDERABLES Nadia crockett Result [facility] [address] [place] [address] * ECG Adult (06/15/2025 10:35 AM EDT) EKG DIAGNOSIS CLASS Abnormal MUSE ECG Ventricular Rate 65 BPM MUSE ECG Atrial Rate 65 BPM MUSE ECG MA Interval 162 ms MUSE ECG QRSD Interval 86 ms MUSE ECG QT Interval 446 ms MUSE ECG QTC Interval 463 ms MUSE ECG P Atkins 4 degrees MUSE ECG R Atkins 58 degrees MUSE ECG T Wave Atkins 22 degrees MUSE ECG Diagnosis Normal sinus rhythm MUSE ECG Diagnosis Cannot rule out Anterior infarct , age undetermined MUSE ECG Diagnosis Abnormal ECG MUSE ECG Diagnosis MUSE ECG Diagnosis Confirmed by Max Gregorio ([id number]) on 06/15/2025 3:47:28 PM MUSE ECG 06/15/2025 10:3 5 AM EDT 06/15/2025 3:47 PM EDT Mary INTERIANO ECG ORDERABLES Final Result MUSE ECG * Leticia auris Surveillance by PCR (06/14/2025 6:47 PM EDT) Leticia auris PCR Result Not Detected Not Detected 06/18/2025 5:43 AM EDT [facility] Swab (Axilla and Groin) Non-blood Collection / Unknown 06/14/2025 6:47 PM EDT 06/14/2025 7:49 PM EDT Narrative [facility] - 06/18/2025 5:43 AM EDT This PCR assay was developed and its performance characteristics determined by [facility] as appropriate for clinical purposes. This assay has not been cleared or approved by the FDA, but is performed in a CLIA regulated laboratory that is qualified to perform high-complexity testing. Luis Angel Bee MD LAB MICROBIOLOGY - GENERA L ORDERABLES Final Result Performing Organization Address City/[facility]/ZIP Co de Phone Number [facility] [address] [place] [address] * SARS CoV-2/COVID-19 by PCR - Rapid (06/14/2025 6:47 PM EDT) SARS CoV-2/COVID-1 9 RNA PCR Result Not Detected Not Detected 06/14/2025 8:35 PM EDT [facility] Swab Nasopharyngeal structure / Unknown Non-blood Collection / Unknown 06/14/2025 6:47 PM EDT 06/14/2025 7:49 PM EDT Narrative [facility] - 06/14/2025 8:35 PM [...] L ORDERABLES Final Result Performing Organization Address [facility] Co de Phone Number [facility] [address] [place] [address] * (ABNORMAL) Hepatitis B Surface Antibody, Quantitative (06/14/2025 6:31 PM EDT) [facility] Hepatitis B Surface Antibody, Quantitative 34.47(H) NonReacti ve: <8, Grayzone: 8 - <12, Reactive: >= 12 mIU/mL 06/14/2025 8:18 PM EDT [facility] Comment: Reactive. Individual is considered immune to HBV infection. Blood Venous blood specimen / Unknown Venipuncture / Unknown 06/14/2025 6:31 PM EDT 06/14/2025 7:05 PM EDT us Luis Angel Bee MD LAB BLOOD ORDERABLES Nadia l Result Performing Organization Address [facility] Co de Phone Number [facility] [address] [place] [address] * Light Green Top (06/14/2025 6:31 PM EDT) [facility] Extra Hold for add-ons 06/14/2025 11:01 PM EDT [facility] Comment:Auto resulted. Blood Venous blood specimen / Unknown 06/14/2025 6:31 PM EDT 06/14/2025 8:12 PM EDT Result [facility] us Luis Angel Bee MD LAB BLOOD ORDERABLES Nadia l Result Performing Organization Address City/[facility]/ZIP Co de Phone Number [facility] [address] [place] [address] * Red Top (06/14/2025 6:31 PM EDT) Pathologist [facility] Extra Hold for add-ons 06/14/2025 11:01 PM EDT [facility] Comment:Auto resulted. Blood Venous blood specimen / Unknown 06/14/2025 6:31 PM EDT 06/14/2025 8:12 PM EDT Result [facility] us Luis Angel Bee MD LAB BLOOD ORDERABLES Nadia l Result Performing Organization Address [facility] Co de Phone Number [facility] [address] [place] [address] * Hepatitis C Virus (HCV) Quantitative PCR (06/14/2025 6:31 PM EDT) [facility] Hepatitis C Virus (HCV) Quantitative Interpretation Not Detected Not Detected. 06/18/2025 10:15 PM EDT [facility] Blood Venous blood specimen / Unknown Venipuncture / Unknown 06/14/2025 6:31 PM EDT 06/15/2025 8:51 AM EDT Narrative [facility] - 06/18/2025 10:15 PM [...] assay is FDA approved for clinical use. Result Neto Bee MD LAB BLOOD ORDERABLES Nadia l Result [facility] [address] [place] [address] * HIV 1 & 2 Antibody/Antigen Screen (06/14/2025 6:31 PM EDT) HIV 1 & 2 Antibody/Antigen Screen Non Reactive Non Reactive 06/14/2025 7:45 PM EDT [facility] Comment:Screening for HIV 1 & 2 antibodies, and P24 antigen is NONREACTIVE. No confirmatory testing is required. Blood Venous blood specimen / Unknown Venipuncture / Unknown 06/14/2025 6:31 PM EDT 06/14/2025 7:05 PM EDT Result Neto Bee MD LAB BLOOD ORDERABLES Nadia l Result Performing Organization Address [facility]/ZIP Co de Phone Number [facility] [address] [place] [address] * Hepatitis C Antibody (06/14/2025 6:31 PM EDT) Hepatitis C Antibody Negative Negative 06/14/2025 7:45 PM EDT [facility] Blood Venous blood specimen / Unknown Venipuncture / Unknown 06/14/2025 6:31 PM EDT 06/14/2025 7:05 PM EDT Result Neto eBe MD LAB BLOOD ORDERABLES Nadia l Result Performing Organization Address City/[facility]/ZIP Co de Phone Number [facility] [address] [place] [address] * Hepatitis B Core Total Antibody IgG,IgM (06/14/2025 6:31 PM EDT) Hepatitis B Core Total Antibody IgG,IgM Negative Negative 06/14/2025 8:18 PM EDT [facility] Blood Venous blood specimen / Unknown Venipuncture / Unknown 06/14/2025 6:31 PM EDT 06/14/2025 7:05 PM EDT Result Neto Bee MD LAB BLOOD ORDERABLES Nadia l Result Performing Organization Address City/[facility]/ZIP Co de Phone Number [facility] [address] [place] [address] * (ABNORMAL) Vitamin D 25 Hydroxy (06/14/2025 6:31 PM EDT) Only the most recent of2 resultswithin the time period is included. Vitamin D 25 Hydroxy 10.8(L) 20.0 - 80.0 ng/mL 06/14/2025 8:19 PM EDT [facility] Blood Venous blood specimen / Unknown Venipuncture / Unknown 06/14/2025 6:31 PM EDT 06/14/2025 7:05 PM EDT Narrative [facility] - 06/14/2025 8:19 PM EDT Testing performed on [employer] Chief Console Operator, standardized against NIST SRM 2972. When testing [...] Nadia l Result Performing Organization Address [facility] Co de Phone Number [facility] [address] [place] [address] * Hepatitis B Surface Antigen (06/14/2025 6:31 PM EDT) Pathologist [facility] Hepatitis B Surf Antigen Negative Negative 06/14/2025 8:18 PM EDT [facility] Blood Venous blood specimen / Unknown Venipuncture / Unknown 06/14/2025 6:31 PM EDT 06/14/2025 7:05 PM EDT us Luis Angel Bee MD LAB BLOOD ORDERABLES Nadia l Result Performing Organization Address City/[facility]/ZIP Co de Phone Number [facility] [address] [place] [address] * Cytomegalovirus Antibody IgG (06/14/2025 6:31 PM EDT) CMV ANTIBODY IGG <0.20 <=0.59 U/mL 06/16/2025 9:[address] [facility] BILL) Blood Venous blood specimen / Unknown Venipuncture / Unknown 06/14/2025 6:31 PM EDT 06/14/2025 7:[address] [facility] BILL) - 06/16/2025 9:07 PM EDT [...] laboratory at the same time. Performed By: [facility] [address] [place], [place] [id number] Unbundler: Balwinder Wadsworth MD, PhD CLIA Number: [id number] us Luis Angel Bee MD LAB BLOOD ORDERABLES Nadia crockett Result [facility] [address] [place] [address] * (ABNORMAL) APTT (06/14/2025 6:31 PM EDT) aPTT 47(H) 25 - 35 sec LAB COAGULATION METHOD 06/14/2025 7:23 PM EDT [facility] Blood Venous blood specimen / Unknown Venipuncture / Unknown 06/14/2025 6:31 PM EDT 06/14/2025 7:05 PM EDT us Luis Angel Bee MD LAB BLOOD ORDERABLES Nadia bon Result [facility] [address] [place] [address] * (ABNORMAL) CBC and Differential (06/14/2025 6:31 PM EDT) WBC Count 7.95 3.70 - 10.30 10*3/uL LAB HEMATOLOGY METHOD 06/14/2025 7:24 PM EDT [facility] RBC Count 2.90(L) 4.60 - 6.10 10*6/uL LAB HEMATOLOGY METHOD 06/14/2025 7:24 PM EDT [facility] HGB 10.1(L) 13.7 - 17.5 g/dL LAB HEMATOLOGY METHOD 06/14/2025 7:24 PM EDT [facility] HCT 29.7(L) 40.0 - 51.0 % LAB HEMATOLOGY METHOD 06/14/2025 7:24 PM EDT [facility] Platelet Count 56(L) 155 - 369 10*3/uL LAB HEMATOLOGY METHOD 06/14/2025 7:24 PM EDT [facility] MCV 102(H) 79 - 98 fL LAB HEMATOLOGY METHOD 06/14/2025 7:24 PM EDT [facility] MCH 34.8(H) 26.0 - 32.0 pg LAB HEMATOLOGY METHOD 06/14/2025 7:24 PM EDT [facility] MCHC 34.0 30.7 - 35.5 g/dL LAB HEMATOLOGY METHOD 06/14/2025 7:24 PM EDT [facility] RDW 16.9(H) 11.5 - 14.5 % LAB HEMATOLOGY METHOD 06/14/2025 7:24 PM EDT [facility] MPV 11.5 8.8 - 12.5 fL LAB HEMATOLOGY METHOD 06/14/2025 7:24 PM EDT [facility] nRBC 0.0 <=0.0 per 100 WBCs LAB HEMATOLOGY METHOD 06/14/2025 7:24 PM EDT [facility] Differential Type Automated LAB HEMATOLOGY METHOD 06/14/2025 7:24 PM EDT [facility] Neutrophils % 56 % LAB HEMATOLOGY METHOD 06/14/2025 7:24 PM EDT [facility] Lymphocytes % 25 % LAB HEMATOLOGY METHOD 06/14/2025 7:24 PM EDT [facility] Monocytes % 13 % LAB HEMATOLOGY METHOD 06/14/2025 7:24 PM EDT [facility] Eosinophils % 4 % LAB HEMATOLOGY METHOD 06/14/2025 7:24 PM EDT [facility] Basophils % 1 % LAB HEMATOLOGY METHOD 06/14/2025 7:24 PM EDT [facility] Immature Granulocytes % 1 % LAB HEMATOLOGY METHOD 06/14/2025 7:24 PM EDT [facility] Neutrophils Absolute 4.56 1.60 - 6.10 10*3/uL LAB HEMATOLOGY METHOD 06/14/2025 7:24 PM EDT [facility] Lymphocytes Absolute 1.97 1.20 - 3.90 10*3/uL LAB HEMATOLOGY METHOD 06/14/2025 7:24 PM EDT [facility] Monocytes Absolute 1.03(H) 0.30 - 0.90 10*3/uL LAB HEMATOLOGY METHOD 06/14/2025 7:24 PM EDT [facility] Eosinophils Absolute 0.31 0.00 - 0.50 10*3/uL LAB HEMATOLOGY METHOD 06/14/2025 7:24 PM EDT [facility] Basophils Absolute 0.04 0.00 - 0.10 10*3/uL LAB HEMATOLOGY METHOD 06/14/2025 7:24 PM EDT [facility] Immature Granulocytes Absolute 0.04 0.00 - 0.06 10*3/uL LAB HEMATOLOGY METHOD 06/14/2025 7:24 PM EDT [facility] Blood Venous blood specimen / Unknown Venipuncture / Unknown 06/14/2025 6:31 PM EDT 06/14/2025 7:06 PM EDT [facility] - 06/14/2025 7:24 PM EDT Therapeutic decision making should be based on absolute values, rather than percentages. us Luis Angel Bee MD LAB BLOOD ORDERABLES Nadia l Result [facility] [address] [place] [address] * Type and screen (06/14/2025 6:31 PM [...] MARYA Final Result Performing Organization Address [facility] Co de Phone Number BLOOD BANK [address] * CT Angio Cardiac Coronary Arteries [...] source 192 MDCT scanner (Somatom Force, Siem[employer]) was used for data acquisition. A [...] MD on 06/13/2025 10:38 PM us Zarina Baylee Teresa INTERIANO IMG CT PROCEDURES Final Result * [...] are based on Ultrasound LI-RADS version 2017. [email or web address] -[email or web address] CRITICAL RESULT: No. COMMUNICATION: Per [...] recommendations are based on UltrasoundLI-RADS version 2017. [email or web address] -[email or web address] .[email or web address] CRITICAL RESULT: No. COMMUNICATION: Per [...] - 20.1 ug/L 06/13/2025 9:09 AM EDT [facility] Comment:Test performed at [facility] Special [facility] Laboratory. Blood Venous blood specimen / Unknown Venipuncture / Unknown 06/13/2025 6:50 AM EDT 06/13/2025 7:24 AM EDT Moustapha Katz MD LAB REF LAB BLOOD AND FLUID OR D Final Result [facility] [address] [place] [address] * C-Telopeptide (06/13/2025 6:50 AM EDT) C Telopeptide Beta Cross Linked Serum Result 397 132 - 752 pg/mL 06/14/2025 9:07 PM EDT [facility] ([employer]) Blood Venous blood specimen / Unknown Venipuncture / Unknown 06/13/2025 6:50 AM EDT 06/13/2025 7:25 AM EDT Narrative [facility]) - 06/14/2025 9:07 PM EDT REFERENCE INTERVAL: C-Telopeptide, Dfxa-Yeejz-Otmrfs, Serum Access complete set of age- and/or gender-specific reference intervals for this test in the [facility] Test Directory ([facility]). Performed By: [facility] [address] [place] [id number] Unbundler: Balwinder Wadsworth MD, PhD CLIA Number: [id number] us Moustapha Katz MD LAB BLOOD ORDERABLES Final Res ult [facility]) [address] [place] [address] * Osteocalcin by ECIA (06/13/2025 6:50 AM EDT) OSTEOCALCIN BY ECIA 8 8 - 36 ng/mL 06/15/2025 12:10 AM EDT [facility] ([employer]) Blood Venous blood specimen / Unknown Venipuncture / Unknown 06/13/2025 6:50 AM EDT 06/13/2025 7:58 AM EDT Narrative [facility] B[facility]) - 06/15/2025 12:10 AM EDT INTERPRETIVE INFORMATION: Osteocalcin by ECIA In patients with renal failure, the osteocalcin result may be directly elevated, due to impaired clearance, and/or indirectly elevated due to renal osteodystrophy. Access complete set of age- and/or gender-specific reference intervals for this test in the [facility] Test Directory ([facility]HEEX). Performed By: [facility] [address] [place] [address] Unbundler: Balwinder Wadsworth MD, PhD CLIA Number: [id number] Moustapha Katz MD LAB BLOOD ORDERABLES Final Res ult Performing Organization Address City/[facility]/ZIP Co de Phone Number [facility] [address] [place] [address] * Vitamin D 1,25 Dihydroxy (06/13/2025 6:50 AM EDT) VITAMIN D, 1, 25-DIHYDROXY 43.7 19.9 - 79.3 pg/mL 06/13/2025 12:37 PM EDT [facility] Blood Venous blood specimen / Unknown Venipuncture / Unknown 06/13/2025 6:50 AM EDT 06/13/2025 7:25 AM EDT Moustapha Katz MD LAB BLOOD ORDERABLES Final Res ult [facility] [address] [place] [address] * Phosphorus, Plasma (06/13/2025 6:50 AM EDT) Phosphorus, Plasma 3.5 2.5 - 4.5 mg/dL 06/13/2025 7:56 AM EDT [facility] Blood Venous blood specimen / Unknown Venipuncture / Unknown 06/13/2025 6:50 AM EDT 06/13/2025 7:25 AM EDT us Moustapha Katz MD LAB BLOOD ORDERABLES Final Res ult [facility] [address] [place] [address] * Dexa Bone Density (06/08/2025 8:35 AM EDT) Anatomical Region Laterality Modality L-spine Radiographic Liseht ging Narrative 06/17/2025 10:07 PM EDT [facility] [address] [address] DXA Bone Densitometry Report: [06/08/2025] BMD test performed using the Nonlinear Dynamics DXA System (analysis version: 14.10) manufactured by [employer]. REFERRING PROVIDER: Dr. Moustapha Katz MD CLINICAL [...] t from Last 3 Months Insurance ANTHEM Member Subscriber Plan / Payer (Ef fective 2023-Present) Name:David Pop Relation to Subscriber:Self Name:David Pop Payer ID:[id number] (NAIC) Type:Not on file Address: [address] ANTHEM Advance Directives Documents on File Type Date Recorded Patient Transcribing Machine Mechanic Expl anation Power of Cost Control Analyst 07/11/2025 POA / Trudy ng Will Care Teams Elevator Mechanic Relationship Specialty Start Date End Date Chris Medel MD [address] [place] [address] PCP - General 03/14/25 Ruma Hernández APRN [address] [facility] [address] [place] [address] Referring Physician Gastroenterology 07/30/23
--- OUTSIDE RECORDS SUMMARY | 2025-08-29 09:35 | XMS_ITS | Encounter Summary ---
Author Organization [facility] Address [address] [place] [address] Care Team Providers Care Music Writer Name Role Phone Unavailable Primary Care Provider [...] release of HIV test results or diagnoses. [id number] Reason for Referral * Imaging/Cardiovascular Scan (Routine) - New Request Specialty Diagnoses / Procedures Referred By Contac t Referred To Contact Radiology Diagnoses Pre-transplant evaluation for chronic liver disease Procedures CT Chest WO contrast [facility] Transplant at [address] [place] [address] Phone: tel: fax: Referral ID Status Reason Start Date Expiration Date V isits Requested Visits Authorized [id number] New Request 08/13/2025 02/09/2026 1 1 Encounter Details Date Type Department Care Team (Late st Contact Info) Description 08/13/2025 Orders Only [facility] Liver Transplant at [address] [place] [address] Chapito Alcantar RN Pre-transplant evaluation [...]
--- OUTSIDE RECORDS SUMMARY | 2025-08-29 09:35 | XMS_ITS ---
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
--- OUTSIDE RECORDS SUMMARY | 2025-08-29 09:35 | XMS_ITS | Encounter Summary ---
Author Organization Healthcare Address [address] [place] [address] Care Team Providers Care Beauty Culture Teacher Name Role Phone Ruma Hernández ART EDUCATOR Unavailable [phone] Chris Medel MD Primary Care Provider [phone] Encounter Details Date Type Department Care Team (Late st Contact Info) Description 08/20/2025 Results Follow-Up [facility] [address] [place] [address] Meaghan Le, RN [facility] LIVER [id number] [address] [place] [address] Social History Tobacco Use Types [...] week 02/19/2025 How often do you attend [facility] or ep[facility] services? More than 4 times [...] 06/15/2025 [facility] Occupat ional [facility] - Occupational [...] No 06/15/2025 Housing Stability Vital Sign Answer Fransioc e Recorded In the last 12 months, [...] drink first t luisa in the morning (EYE-TRANSCRIPTIONIST) to steady your nerves or to get [...] Description 09/12/2025 8:30 AM EDT Clinical Support [facility] [address] [place] [address] 09/12/2025 10:00 AM EDT Office Visit [facility] [address] [place] [address] Portia Maguire MD [address] [place] [address] 10/03/2025 12:45 PM EST Office Visit Medical Office Building Urology [address] [facility], [address] [place] [id number] Suhail Brock MD [address] [place] [address] 10/18/2025 4:20 PM EST Office Visit [facility] [address] [facility], [address] [place] [address] Moustapha Katz MD [address] [place] [address] documented as of this [...] documented as of this encounter Care Teams Beauty Culture Teacher Relationship Specialty Start Date End Date Chris Medel MD [address] [place] [address] PCP - General 03/14/25 Ruma Hernández APRN [address] [facility] [address] [place] [address] Referring Physician Gastroenterology 07/30/23 documented as of this encounter
--- OUTSIDE RECORDS SUMMARY | 2025-08-29 09:35 | XMS_ITS | Encounter Summary ---
Author Organization Healthcare Address [address] [place] [address] Care Team Providers Care Extractor Operator Solvent Process Name Role Phone Ruma Hernández COMMERCIAL ROOFING ESTIMATOR Unavailable [phone] Chris Medel MD Primary Care Provider [phone] Encounter Details Date Type Department Care Team (Late st Contact Info) Description 07/19/2025 Results Follow-Up [facility] [address] [place] [address] Meaghan Le, RN [facility] LIVER [id number] [address] [place] [address] Social History Tobacco Use Types [...] 02/19/2025 How often do you attend [facility] or [facility]uther[facility] services? More than 4 times [...] 06/15/2025 [facility] of Occupat ional [facility] - Occupational Stress Questionnaire Answer [...] first t luisa in the morning (EYE-CHANGE DIRECTOR) to steady your nerves or to [...] Encounters Date Type Department Care Team ([facility] Contact Info) Description 09/12/2025 8:30 AM EDT Clinical Support [facility] [address] [place] [address] 09/12/2025 10:00 AM EDT Office Visit [facility] [address] [place] [address] Portia Maguire MD [address] [place] [address] 10/03/2025 12:45 PM EST Office Visit Medical Office Building Urology [address] [facility] [place] [address] Suhail Brock MD [address] [facility] [address] [place] [address] 10/18/2025 4:20 PM EST Office Visit Professional [employer] [facility] [address] [facility] [place] [address] Moustapha Katz MD [address] [facility] [address] [place] [address] documented as of this encounter [...] documented as of this encounter Care Teams Extractor Operator Solvent Process Relationship Specialty Start Date End Date Chris Medel MD [address] [place] [address] PCP - General 03/14/25 Ruma Hernández APRN [address] [facility] [address] [place] [address] Referring Physician Gastroenterology 07/30/23 documented as of this encounter
--- OUTSIDE RECORDS SUMMARY | 2025-08-29 09:35 | XMS_ITS | Encounter Summary ---
Author Organization Healthcare Address [address] [place] [address] Care Team Providers Care Associate Research Scientist Name Role Phone Urban Brantley DO Primary Care Provider [phone] Ruma Hernández LUNCHROOM OPERATOR Unavailable [phone] Chris Medel MD Primary Care Provider [phone] Encounter Details Date Type Department Care Team (Late st Contact Info) Description 05/09/2023 Orders Only External Location [address] [place] [address] Provider, External Social History Tobacco Use Types [...] AM EDT Clinical Support [facility] [place] [address] [address] 09/12/2025 10:00 AM EDT Office Visit [facility] [place] [address] [address] Portia Maguire MD [address] [place] [address] 10/03/2025 12:45 PM EST Office Visit Medical Office Building [facility] [address] [facility] [facility], [address] [place] [address] Suhail Brock MD [address] [place] [address] 10/18/2025 4:20 PM EST Office Visit [facility] [address], [address] [place] [address] Moustapha Katz MD [address] [facility] [facility] [address] [place] [address] documented as of this encounter [...] as of this encounter Care Teams Associate Research Scientist Relationship Specialty Start Date End Date Urban Brantley DO [address] [place] [address] PCP - General 07/30/23 03/13/25 Chris Medel MD [address] [place] [address] PCP - General 03/14/25 Ruma Hernández APRN [address] [facility] [address] [place] [address] Referring Physician Gastroenterology 07/30/23 documented as of this encounter
[2025-08-29 10:08] LABS: Hematocrit 32.1 % (42.0-52.0); Hemoglobin 10.7 g/dL (14.1-18.0); Immature Granulocytes % 0.5 %; Mean Corpuscular HGB Conc 33.3 g/dL (31.8-35.4); Mean Corpuscular Hemoglobin 33.6 pg (27.0-31.2); Mean Corpuscular Volume 100.9 fl (80-94); Nucleated Red Blood Cells % 0 %; Platelet Count 62 K/mm3 (142-424); Red Blood Count 3.18 M/mm3 (4.60-6.20); Red Cell Distribution Width-SD 64.4 fL; White Blood Count 4.2 K/mm3 (4.8-10.8)
[2025-08-29 10:14] LABS: Activated Partial Thrombo Time 39.6 seconds (22.8-30.6); INR 1.71 (0.9-1.1); Prothrombin Time 18.2 seconds (10.1-12.5)
[2025-08-29 10:50] LABS: Alanine Aminotransferase 45 U/L (12-78); Albumin Level 2.2 g/dl (3.5-5.0); Albumin/Globulin Ratio 0.6 (1.1-1.8); Alkaline Phosphatase 326 U/L (38-126); Anion Gap 7.4 mEq/L (5-15); Aspartate Amino Transferase 52 U/L (17-59); Bilirubin,Total 4.2 mg/dl (0.2-1.3); Blood Urea Nitrogen 11 mg/dl (9-20); Calcium 8.2 mg/dl (8.4-10.2); Carbon Dioxide 27 mmol/L (22.0-30.0); Chloride 109 mmol/L (98-107); Creatinine,Serum 0.90 mg/dl (0.66-1.25); Estimated Glomerular Filt Rate 85 ml/min (>60); GFR (African American) 103 ML/MIN (>60); Globulin 3.9 g/dL (1.3-3.2); Glucose 113 mg/dl (74-100); Potassium 4.4 mmoL/L (3.5-5.1); Sodium 139 mmol/L (136-145); Total Protein,Serum 6.1 g/dl (6.3-8.2)
== END 2025-08-29 23:59 | disposition home or self-care (01) ==
PROVIDERS: PCP Family Medicine; Visit Provider Physician Assistant
DX: K72.90 Hepatic failure, unspecified without coma (principal)
CPT/HCPCS: 36415; 80053; 85025; 85610; 85730

== ENCOUNTER 2025-09-18 18:05 | Inpatient (IN) | payer BC, SELFPAY ==
--- OUTSIDE RECORDS SUMMARY | 2023-08-27 07:34 | XMS_ITS | Encounter Summary ---
[facility] Address [address] [place] [address] Care Team Providers Care Hunting Sales Leader Name Role Phone Karon Urban Jc DO Primary Care Provider +1 -[phone] Encounter Details Date Type Department Care Team (Late st Contact Info) Description 08/27/2023 8:34 AM EDT Hospital Encounter [facility] PULMONARY & CRITICAL CARE MEDICINE [address] [place] [phone] Social History Tobacco Use Types Packs/Day [...] on filedocumented in this encounter Care Teams Hunting Sales Leader Relationship Specialty Start Date End Date Urban Brantley DO [address] [place] [address] [place] [address] PCP - General Internal Medicine 03/22/23 documented as of this encounter
--- OUTSIDE RECORDS SUMMARY | 2023-08-27 07:34 | XMS_ITS | Encounter Summary ---
[facility] [address] [place] [address] Care Team Providers Care Delicate Fabrics Presser Name Role Phone Karon Urban Jc DO Primary Care Provider +1 -[phone] Encounter Details Date Type Department Care Team (Late st Contact Info) Description 08/27/2023 8:34 AM EDT Hospital Encounter [facility] PULMONARY & CRITICAL CARE MEDICINE [address] [place] [phone] Social History Tobacco Use Types Packs/Day [...] on filedocumented in this encounter Care Teams Delicate Fabrics Presser Relationship Specialty Start Date End Date Urban Brantley DO [address] [place] [address] [place] [address] PCP - General Internal Medicine 03/22/23 documented as of this encounter
--- OUTSIDE RECORDS SUMMARY | 2025-09-08 19:31 | XMS_ITS | Encounter Summary ---
Author Organization [facility] Address [address] [place] [address] Care Team Providers Care Poultry Process Worker Name Role Phone Unknown, Attending Provider [...] release of HIV test results or diagnoses. [id number] Health Encounter Details Date Type Department Care Team (Latest Contact Info) Description 09/08/2025 8:31 PM EDT - 09/08/2025 8:33 PM EDT Hospital Encounter [facility] Radiology [address] [place] [address] System, Provider Not In Discharge Disposition: Home [...] on filedocumented in this encounter Care Teams Poultry Process Worker Relationship Specialty Start Date End Date Unknown, Attending Provider PCP - General 08/29/2508/16 documented as of this encounter
--- OUTSIDE RECORDS SUMMARY | 2025-09-08 19:31 | XMS_ITS | Encounter Summary ---
Author Organization [facility] Address [address] [place] [address] Care Team Providers Care Edger Hand Name Role Phone Unknown, Attending Provider Primary [...] release of HIV test results or diagnoses. [id number] Reason for Referral * Imaging/Cardiovascular Scan (Routine) - New Request Specialty Diagnoses / Procedures Referred By Contac t Referred To Contact Radiology Procedures CT Abdomen and or Pelvis Outside Exam System, Provider Not In [address] [address] Referral ID Status Reason Start Date Expiration Date V isits Requested Visits Authorized [id number] New Request 09/08/2025 03/07/2026 1 1 Reason for Visit * Imaging/Cardiovascular Scan (Routine) - New Request Specialty Diagnoses / Procedures Referred By Contac t Referred To Contact Radiology Procedures CT Abdomen and or Pelvis Outside Exam System, Provider Not In [address] [address] Referral ID Status Reason Start Date Expiration Date V isits Requested Visits Authorized [id number] New Request 09/08/2025 03/07/2026 1 1 Encounter Details Date Type Department Care Team (Latest Contact Info) Description 09/08/2025 8:31 PM EDT - 09/08/2025 8:33 PM EDT Hospital Encounter [facility] Radiology [address] [place] [address] System, Provider Not In Discharge Disposition: Home [...] on filedocumented in this encounter Care Teams Edger Hand Relationship Specialty Start Date End Date Unknown, Attending Provider PCP - General 08/29/2508/16 documented as of this encounter
--- OUTSIDE RECORDS SUMMARY | 2025-09-08 19:31 | XMS_ITS | Encounter Summary ---
Author Organization [facility] Address [address] [place] [address] Care Team Providers Care Instrumentation And Control Technician Name Role Phone Unknown, Attending Provider Primary [...] release of HIV test results or diagnoses. [id number] Health Encounter Details Date Type Department Care Team (Latest Contact Info) Description 09/08/2025 8:31 PM EDT - 09/08/2025 8:33 PM EDT Hospital Encounter [facility] Radiology [address] [place] [address] System, Provider Not In Discharge Disposition: Home [...] on filedocumented in this encounter Care Teams Instrumentation And Control Technician Relationship Specialty Start Date End Date Unknown, Attending Provider PCP - General 08/29/2508/16 documented as of this encounter
--- OUTSIDE RECORDS SUMMARY | 2025-09-08 19:31 | XMS_ITS | Encounter Summary ---
Author Organization [facility] Address [address] [place] [address] Care Team Providers Care Clinical Statistics Manager Name Role Phone Unknown, Attending Provider Primary [...] release of HIV test results or diagnoses. [id number] Reason for Referral * Imaging/Cardiovascular Scan (Routine) - New Request Specialty Diagnoses / Procedures Referred By Contac t Referred To Contact Radiology Procedures CT Abdomen and or Pelvis Outside Exam System, Provider Not In [address] [address] Referral ID Status Reason Start Date Expiration Date V isits Requested Visits Authorized [id number] New Request 09/08/2025 03/07/2026 1 1 Reason for Visit * Imaging/Cardiovascular Scan (Routine) - New Request Specialty Diagnoses / Procedures Referred By Contac t Referred To Contact Radiology Procedures CT Abdomen and or Pelvis Outside Exam System, Provider Not In [address] [address] Referral ID Status Reason Start Date Expiration Date V isits Requested Visits Authorized [id number] New Request 09/08/2025 03/07/2026 1 1 Encounter Details Date Type Department Care Team (Latest Contact Info) Description 09/08/2025 8:31 PM EDT - 09/08/2025 8:33 PM EDT Hospital Encounter [facility] Radiology [address] [place] [address] System, Provider Not In Discharge Disposition: Home [...] on filedocumented in this encounter Care Teams Clinical Statistics Manager Relationship Specialty Start Date End Date Unknown, Attending Provider PCP - General 08/29/2508/16 documented as of this encounter
--- OUTSIDE RECORDS SUMMARY | 2025-09-08 19:34 | XMS_ITS | Encounter Summary ---
Author Organization [facility] Address [address] [place] [address] Care Team Providers Care Bottom Ironer Name Role Phone Unknown, Attending Provider Primary [...] release of HIV test results or diagnoses. [id number] Reason for Referral * Imaging/Cardiovascular Scan (Routine) - New Request Specialty Diagnoses / Procedures Referred By Contac t Referred To Contact Radiology Procedures CT Abdomen and or Pelvis Outside Exam System, Provider Not In [address] [address] Referral ID Status Reason Start Date Expiration Date V isits Requested Visits Authorized [id number] New Request 09/08/2025 03/07/2026 1 1 Reason for Visit * Imaging/Cardiovascular Scan (Routine) - New Request Specialty Diagnoses / Procedures Referred By Contac t Referred To Contact Radiology Procedures CT Abdomen and or Pelvis Outside Exam System, Provider Not In [address] [address] Referral ID Status Reason Start Date Expiration Date V isits Requested Visits Authorized [id number] New Request 09/08/2025 03/07/2026 1 1 Encounter Details Date Type Department Care Team (Latest Contact Info) Description 09/08/2025 8:34 PM EDT - 09/08/2025 11:59 PM EDT Hospital Encounter [facility] Radiology [address] [place] [address] System, Provider Not In Discharge Disposition: Home [...] AND OR PELVIS OUTSIDE EXAM Routine 09/08/2025 8:34 PM EDT documented in this encounter Results * CT Abdomen and or Pelvis Outside Exam (09/08/2025 8:34 PM EDT) Narrative 09/08/2025 8:34 PM EDT Images associated with this accession number were presented to us for comparison to an examination performed here. us Provider Not In System IMG CT ORDERABLES Final R esult documented in this encounter Visit Diagnoses Not on filedocumented in this encounter Care Teams Bottom Ironer Relationship Specialty Start Date End Date Unknown, Attending Provider PCP - General 08/29/2508/16 documented as of this encounter
--- OUTSIDE RECORDS SUMMARY | 2025-09-08 19:34 | XMS_ITS | Encounter Summary ---
Author Organization [facility] Address [address] [place] [address] Care Team Providers Care Engineer Rf Deployment Name Role Phone Unknown, Attending Provider Primary [...] release of HIV test results or diagnoses. [id number] Health Encounter Details Date Type Department Care Team (Latest Contact Info) Description 09/08/2025 8:34 PM EDT - 09/08/2025 11:59 PM EDT Hospital Encounter [facility] Radiology [address] [place] [address] System, Provider Not In Discharge Disposition: Home [...] on filedocumented in this encounter Care Teams Engineer Rf Deployment Relationship Specialty Start Date End Date Unknown, Attending Provider PCP - General 08/29/2508/16 documented as of this encounter
--- OUTSIDE RECORDS SUMMARY | 2025-09-08 19:34 | XMS_ITS | Encounter Summary ---
Author Organization [facility] Address [address] [place] [address] Care Team Providers Care Packing Room Inspector Name Role Phone Unknown, Attending Provider Primary [...] release of HIV test results or diagnoses. [id number] Health Encounter Details Date Type Department Care Team (Latest Contact Info) Description 09/08/2025 8:34 PM EDT - 09/08/2025 11:59 PM EDT Hospital Encounter [facility] Radiology [address] [place] [address] System, Provider Not In Discharge Disposition: Home [...] on filedocumented in this encounter Care Teams Packing Room Inspector Relationship Specialty Start Date End Date Unknown, Attending Provider PCP - General 08/29/2508/16 documented as of this encounter
--- OUTSIDE RECORDS SUMMARY | 2025-09-08 19:34 | XMS_ITS | Encounter Summary ---
Author Organization [facility] Address [address] [place] [address] Care Team Providers Care Frozen Pie Maker Name Role Phone Unknown, Attending Provider Primary [...] release of HIV test results or diagnoses. [id number] Reason for Referral * Imaging/Cardiovascular Scan (Routine) - New Request Specialty Diagnoses / Procedures Referred By Contac t Referred To Contact Radiology Procedures CT Abdomen and or Pelvis Outside Exam System, Provider Not In [address] [address] Referral ID Status Reason Start Date Expiration Date V isits Requested Visits Authorized [id number] New Request 09/08/2025 03/07/2026 1 1 Reason for Visit * Imaging/Cardiovascular Scan (Routine) - New Request Specialty Diagnoses / Procedures Referred By Contac t Referred To Contact Radiology Procedures CT Abdomen and or Pelvis Outside Exam System, Provider Not In [address] [address] Referral ID Status Reason Start Date Expiration Date V isits Requested Visits Authorized [id number] New Request 09/08/2025 03/07/2026 1 1 Encounter Details Date Type Department Care Team (Latest Contact Info) Description 09/08/2025 8:34 PM EDT - 09/08/2025 11:59 PM EDT Hospital Encounter Radiology [address] [place] [address] System, Provider Not In Discharge Disposition: Home [...] on filedocumented in this encounter Care Teams Frozen Pie Maker Relationship Specialty Start Date End Date Unknown, Attending Provider PCP - General 08/29/2508/16 documented as of this encounter
--- OUTSIDE RECORDS SUMMARY | 2025-09-10 09:03 | XMS_ITS | Encounter Summary ---
Author Organization [facility] Address [address] [place] [address] Care Team Providers Care Wood Flour Miller Name Role Phone System, Provider Not In [...] release of HIV test results or diagnoses. [id number] Reason for Referral * Imaging/Cardiovascular Scan (Routine) - Closed Specialty Diagnoses / Procedures Referred By Gianna reyes Referred To Contact Radiology Diagnoses Pre-transplant evaluation for chronic liver disease Procedures CT Chest WO contrast [facility] Transplant at [address] [address] Phone: tel: fax: Referral ID Status Reason Start Date Expiration Date Visits Re quested Visits Authorized [id number] Closed 08/13/2025 02/09/2026 1 1 Reason for Visit * Auth/Cert (Routine) Specialty Diagnoses / Procedures Referred By Gianna reyes Referred To Contact Radiology [facility] [address] [place] [address] Phone: tel: Referral ID Status Reason Start Date Expiration Date Visits Re quested Visits Authorized [id number] 1 1 Encounter Details Date Type Department Care Team (Latest Contact Info) Description 09/10/2025 10:03 AM EDT - 09/10/2025 11:59 PM EDT Hospital Encounter [facility] [address] [place] [phone] Nigel Reaves MD [address] [place] [address] Pre-transplant evaluation for chronic liver [...] within the right upper lobe with downstream pxmz-ne-exnqcbixgemcn within the paramedian right upper lobe apex. [...] Meadows MD at 09/12/2025 9:07 AM EDT us Nigel Reaves MD IMG CT ORDERABLES Final Result documented in this encounter Visit Diagnoses Diagnosis Pre-transplant evaluation for chronic liver disease documented in this encounter Care Teams Wood Flour Miller Relationship Specialty Start Date End Date System, Provider Not In PCP - General 09/10/25 documented as of this encounter
--- OUTSIDE RECORDS SUMMARY | 2025-09-10 09:03 | XMS_ITS | Encounter Summary ---
Author Organization [facility] Address [address] [place] [address] Care Team Providers Care Machinist Wood Name Role Phone System, Provider Not In [...] release of HIV test results or diagnoses. [id number] Reason for Referral * Imaging/Cardiovascular Scan (Routine) - Closed Specialty Diagnoses / Procedures Referred By Gianna reyes Referred To Contact Radiology Diagnoses Pre-transplant evaluation for chronic liver disease Procedures CT Chest WO contrast [facility] Liver Transplant at [address] [address] Phone: tel: fax: Referral ID Status Reason Start Date Expiration Date Visits Re quested Visits Authorized [id number] Closed 08/13/2025 02/09/2026 1 1 Reason for Visit * Auth/Cert (Routine) Specialty Diagnoses / Procedures Referred By Gianna reyes Referred To Contact Radiology [facility] [address] [place] [address] Phone: tel: Referral ID Status Reason Start Date Expiration Date Visits Re quested Visits Authorized [id number] 1 1 Encounter Details Date Type Department Care Team (Latest Contact Info) Description 09/10/2025 10:03 AM EDT - 09/10/2025 11:59 PM EDT Hospital Encounter [facility] [address] [place] [phone] Nigel Reaves MD [address] [place] [address] Pre-transplant evaluation for chronic liver [...] within the right upper lobe with downstream gvle-iu-mwwmuncbrezmy within the paramedian right upper lobe apex. [...] documented as of this encounter Care Teams Machinist Wood Relationship Specialty Start Date End Date System, Provider Not In PCP - General 09/10/25 documented as of this encounter
--- OUTSIDE RECORDS SUMMARY | 2025-09-10 11:00 | XMS_ITS | Encounter Summary ---
Author Organization [facility] Address [address] [place] [address] Care Team Providers Care Spearer Name Role Phone System, Provider Not In [...] release of HIV test results or diagnoses. [id number] Health Encounter Details Date Type Department Care Team (Late st Contact Info) Description 09/10/2025 12:00 PM EDT Office Visit [facility] Anesthesia Transplant at [place] [id number] [facility] [address] [place] [address] Unknown, Attending Provider Stefan Gonzalez MD [address] [facility] [place] [address] Pre-transplant evaluation for chronic liver disease (Primary [...] Sign Reading Time Taken Comments Blood Pressure 127/68 09/10/2025 1:00 PM EDT Pulse 62 09/10/2025 1:00 PM EDT Temperature 36.6 C (97.9 F) 09/10/2025 1:00 PM EDT Respiratory Rate 16 09/10/2025 1:00 PM EDT Oxygen Saturation 100% 09/10/2025 1:00 PM EDT Inhaled Oxygen Concentration 100% 09/10/2025 1 :00 PM EDT Weight - - Height - - Body Mass Index - - documented in this encounter H&P Notes * Stefan Gonzalez MD - 09/10/2025 12:00 PM EDT Images from the original note were not included. 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 year old male seen at the request of the transplant surgical team torender an opinion on perioperative risk optimization and to coordinate medical care as necessary related to liver transplant. 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 His liver disease is d/b ascites on furosemide & spironolactone requiring intermittent paracentesis. He is in his usual state of health today. He endorses generalized fatigue, intermittent muscle cramps, and b/l LE edema. He endorses HE that is well controlled with lactulose rifaximin. He is otherwise without complaint today. Past Medical History: Past Medical History: Diagnosis Date Epididymitis Hemochromatosis Hypertension Kidney stone UTI (urinary tract infection) Past Surgical History: Past Surgical History: Procedure Laterality Date HERNIA REPAIR Social History: Social History Socioeconomic History Marital status: Spouse name: Not on file Number of children: Not on file Years of education: Not on file Highest education level: Not on file Occupational History Not on file Tobacco Use Smoking status: Never Smokeless tobacco: Former Substance and Sexual Activity Alcohol use: Not Currently Comment: Sober since February 2023 Drug use: Not on file Sexual activity: Not on file Other Topics Concern Not on file Social History Narrative Not on file Social Drivers of Health Financial Resource Strain: Low Risk (06/15/2025) Received from [facility] Overall Financial Resource Strain (CARDIA) How hard is it for you to pay for the very basics like food, housing, medical care, and heating?: Not hard at all Food Insecurity: No Food Insecurity (06/15/2025) Received from [facility] Hunger Vital Sign Worried About Running Out of Food in the Last Year: Never true Ran Out of Food in the Last Year: Never true Transportation Needs: No Transportation Needs (06/15/2025) Received from [facility] PRAPARE - Transportation In the past 12 months, has lack of transportation kept you from medical appointments or from getting medications?: No In the past 12 months, has lack of transportation kept you from meetings, work, or from getting things needed for daily living?: No Physical Activity: Inactive (06/15/2025) Received from [facility] Exercise Vital Sign Days of Exercise per Week: 0 days Minutes of Exercise per Session: 0 min Stress: No Stress Concern Present (06/15/2025) Received from [facility] [employer] [place] [employer] - Occupational Stress Questionnaire Do you feel stress - tense, restless, nervous, or anxious, or unable to sleep at night because yourmind is troubled all the time - these days?: Only a little Social Connections: Socially Integrated (06/15/2025) Received from [facility] Social Connection and Isolation Panel [NHANES] Frequency of Communication with Friends and Family: More than three times a week Frequency of Social Gatherings with Friends and Family: More than three times a week Attends Buddhist Services: More than 4 times per year Active Member of Clubs or Organizations: Yes Attends Club or Organization Meetings: Not on file Marital Status: Intimate Partner Violence: Not At Risk (06/15/2025) Received from [facility] Humiliation, Afraid, Rape, and Kick questionnaire Fear of Current or Ex-Partner: No Emotionally Abused: No Physically Abused: No Sexually Abused: No Housing Stability: Low Risk (06/15/2025) Received from [facility] Housing Stability Vital Sign Unable to Pay for Housing in the Last Year: No Number of Times Moved in the Last Year: 0 Homeless in the Last Year: No Family History: History reviewed. No pertinent family history. Allergies: Allergies[1] Medications: Home Meds: Current Outpatient Medications Medication Instructions calcitRIOL (ROCALTROL) 0.25 mcg carvediloL (COREG) 3.125 mg, 2 times daily ergocalciferol (ERGOCALCIFEROL) 50,000 Units, Weekly furosemide (LASIX) 40 mg, Daily omeprazole (PRILOSEC) 40 mg, Daily spironolactone (ALDACTONE) 150 mg, Daily Xifaxan 550 mg, 2 times daily Review of Systems - History obtained from the patient General ROS: + fatigue; - fever; - chills Ophthalmic ROS: - blurry vision; - double vision ENT ROS: - sore throat; - rhinorrhea Hematological and Lymphatic ROS: - easy bruising; - easy bleeding Respiratory ROS: - SOB; - cough; - wheezing Cardiovascular ROS: - CP; - palpitations; - YI; + b/l LE edema Gastrointestinal ROS: - abdominal pain; - nausea; - vomiting; - ascites Genito-Urinary ROS: - dysuria; - hematuria Musculoskeletal ROS: - arthralgia; - myalgia, + muscle cramps Neurological ROS: + confusion 2/2 HE well controlled; - focal weakness Dermatological ROS: - jaundice; - rashes Do Activity Scale: 4 - Raking leaves; weeding or pushing a power mower. Physical Exam: Vitals: 09/10/25 1300 BP: 127/68 Pulse: 62 Resp: 16 Temp: 97.9 ??F (36.6 ??C) SpO2: 100% Constitutional: Vital signs above NAD, well nourished Eyes: PERRLA Non-injected, anicteric ENMT: Normal external ears and nose Normal hearing bilaterally Moist mucous membranes without erythema or exudate in the oropharynx Neck: No masses, trachea midline No thyromegaly Respiratory: Normal work of breathing Clear to auscultation, no wheezed, crackles, or rhonchi Cardiovascular: Regular rate and rhythm No gallops, rubs, or murmurs +4 pitting edema b/l LE to knee Gastrointestinal: Non-tender Mildly distended No hepatomegaly, no splenomegaly No ascites Musculoskeletal: Normal gait and station Digits and nails without clubbing, cyanosis, or edema Neurologic: Cranial nerves II-XII grossly intact Normal sensation Psychiatric: Oriented to person, place, and time Normal judgement and insight Normal mood and affect Skin: Normal turgor No ecchymosis, rashes, or lesions Other Airway: Mallampati II (hard and soft palate, upper portion of tonsils anduvula visible), Thyromental distance >3 finger breadths, mouth opening >2 finger breadths, neck ROM normal, teeth are grossly intact Labs: No results found for: WBC , HGB , HCT , PLT Lab Results Component Value Date NA 139 08/29/2025 K 4.4 08/29/2025 CL 109 08/29/2025 CO2 27 (A) 08/29/2025 BUN 11 08/29/2025 CREATININE 0.9 08/29/2025 GLUCOSE 113 08/29/2025 @LABRCNTIP(CALCIUM:4,M,PHOS:4)@ Lab Results Component Value Date ALT 45 08/29/2025 AST 52 08/29/2025 ALKPHOS 326 08/29/2025 BILITOT 4.2 08/29/2025 ALBUMIN 2.2 (A) 08/29/2025 Lab Results Component Value Date PROTIME 18.2 08/29/2025 INR 1.71 (A) 08/29/2025 Studies: Echo 06/13/25 (OSH): Narrative Left Ventricle: The left ventricle is normal [...] the degree of transpulmonary shunt is increased. CT Coronary Angio 06/13/25 (OSH): Impression 1. No evidence of coronary plaque or [...] large esophageal varices and medium volume ascites. Stress Test: N/A EKG 06/15/25 (OSH): LHC: N/A RHC: N/A PFTs 04/11/24 (OSH): Spirometry: Normal spirometry Lung Volumes: Normal lung volumes. Diffusion Capacity: Diffusion capacity corrected for Hb is mildly reduced. A reduced DLCO with a normal VA may be seen in conditions such as pulmonary vascular diseases, anemia, early ILD, and emphysema with preserved lung volumes. Chest CT: N/A Assessment and Plan: ASA Physical Status: 4 David Pop is an 65 y.o. male seen for evaluation and risk assessment prior to liver transplantation. Cardiac Risk: Pt has normal biventricular function, Grade II diastolic dysfunction. Coronary calcium score 0. Moderate intrapulmonary shunt but sats 100% on RA. There are no hemodynamically significant valvular abnormalities. Fair functional capacity, limited by generalized fatigue. Able to achieve4 METs. No further testing or optimization needed prior to transplant. On BB for varices ppx, continue carvedilol periop. Anesthesia Complications History: no history of anesthesia complications, MH, PONV, or difficult intubation ESLD: secondary to EtOH cirrhosis Issues related to ESLD: 1. Edema/ascites: The patient's ascites is controlled with spironolactone and furosemide and the patient has required large volume paracentesis on a intermittent basis. Last volume removed is 4L 06/22/25. 2. GI bleed/varices: The patient has a history of esophageal varices without bleeding, and has not previously undergone band ligation. His most recent EGD performed on 03/31/23 (OSH) (due for repeat EGD) showed small esophageal varicies that were not banded, and portal gastropathy. The patient is maintained on a non-selective beta-leatha for primary prophylaxis. 3. Pleural Effusions: Pleural effusions are not present. Patient has not required thoracentesis. 4. Hepatic encephalopathy: The patient's hepatic encephalopathy is well controlled with lactulose and rifaximin 5. Thrombocytopenia: is present. Platelet count is 62 on most recent labs (OSH). 6. Coagulopathy: INR is 1.71 7. Jaundice: is not present. Bili is 4.2 on most recent labs. 8. Hyponatremia: is not present. Na is 139 on most recent labs. 9. Hx of TIPS: Patient does nothave a history of TIPS. Computed MELD 3.0 unavailable. One or more values for this score either were not found within the given timeframe or did not fit some other criterion. 4. Hemachromatosis - was requiring q3 week therapuetic phelbotomy, but has not needed it since the Spring 2024. Labs stable. Last ferritin 171 on 06/18/25 per (OSH). 5. GERD - well controlled on omeprazole. Continue perioperatively. 6. STEPHENIE - pt reports sleep study positive for STEPHENIE, has CPAP but does not use it. Recommendations for upcoming procedure include: Type of Anesthetic: GETA Airway: does predict difficulty; Mask ventilation is expected to be difficult (large solitario). Recommend having videolaryngoscopy available. IV Access: multiple large bore PIVs and MAC x 1 vs MAC x 2 Monitors: routine monitors plus arterial line, CVP, PAP, Vigileo, and possible AQUILES (no absolute contraindications identified) Analgesia: opioid and non-opioid adjuncts PONV: multimodal prophylaxis Postoperative Disposition: SICU CRRT: is not anticipated for the OR, but final determination will be made based on the day of surgery labs. Sodium Management: hyponatremic fluid management is not anticipated for the OR, but final determination will be made based on the day of surgery labs. There are no anesthesia contraindications to listing this patient for liver transplant. The patient and/or family member present verbalized understanding of surgery, and anesthetic plan and agree to proceed. I have communicated my recommendations for the perioperative care of this patient with the surgeon through a shared EMR. Stefan Gonzalez MD Department of Anesthesiology Number and Complexity of Problems Addressed 2 or more stable chronic illnesses Amount and/or Complexity of Data to be Reviewed and Analyzed 3+ review of the results of each unique test Independent interpretation of a test performed by another physician/other qualified health personal care home administrator (not separately reported) Risk of Complications and/or Morbidity or Mortality of Patient Management High [1] Allergies Allergen Reactions Lisinopril Other (See Comments) documented in this encounter Plan of Treatment Not on file documented as of this encounter Visit Diagnoses Diagnosis Pre-transplant evaluation for chronic liver disease- Primary documented in this encounter Additional Health Concerns Assessment Noted Time PHQ-9 Depression Total Score: 8 09/10/20 11:09 AM EDT documented as of this encounter Care Teams Spearer Relationship Specialty Start Date End Date System, Provider Not In PCP - General 09/10/25 documented as of this encounter
--- OUTSIDE RECORDS SUMMARY | 2025-09-10 11:00 | XMS_ITS | Encounter Summary ---
Author Organization [facility] Address [address] [place] [address] Care Team Providers Care Career Technology Teacher Name Role Phone System, Provider Not In [...] release of HIV test results or diagnoses. 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 Attending Physician: Stefan Gonzalez MD Date of [...] Resource Strain: Low Risk (06/15/2025) Received from [facility] Overall Financial Resource Strain (CARDIA) How hard is it for you to pay for the very basics like food, housing, medical care, and heating?: Not hard at all Food Insecurity: No Food Insecurity (06/15/2025) Received from [facility] Hunger Vital Sign Worried About Running Out of Food in the Last Year: Never true Ran Out of Food in the Last Year: Never true Transportation Needs: No Transportation Needs (06/15/2025) Received from [facility] PRAPARE - Transportation In the past 12 months, has lack of transportation kept you from medical appointments or from getting medications?: No In the past 12 months, has lack of transportation kept you from meetings, work, or from getting things needed for daily living?: No Physical Activity: Inactive (06/15/2025) Received from [facility] Exercise Vital Sign Days of Exercise per Week: 0 days Minutes of Exercise per Session: 0 min Stress: No Stress Concern Present (06/15/2025) Received from [facility] [place] of Occupational Health - Occupational Stress Questionnaire Do you feel stress - tense, restless, nervous, or anxious, or unable to sleep at night because yourmind is troubled all the time - these days?: Only a little Social Connections: Socially Integrated (06/15/2025) Received from [facility] Social Connection and Isolation Panel [NHANES] Frequency of Communication with Friends and Family: More than three times a week Frequency of Social Gatherings with Friends and Family: More than three times a week Attends Worship Services: More than 4 times per year Active Member of Clubs or Organizations: Yes Attends Club or Organization Meetings: Not on file Marital Status: Intimate Partner Violence: Not At Risk (06/15/2025) Received from [facility] Humiliation, Afraid, Rape, and Kick questionnaire Fear of Current or Ex-Partner: No Emotionally Abused: No Physically Abused: No Sexually Abused: No Housing Stability: Low Risk (06/15/2025) Received from [facility] Housing Stability Vital Sign Unable to Pay [...] test performed by another physician/other qualified health childcare provider (not separately reported) Risk of Complications and/or Morbidity or Mortality of Patient Management High [1] Allergies Allergen Reactions Lisinopril Other (See Comments) documented in this encounter Plan of Treatment Not on file documented as of this encounter Visit Diagnoses Diagnosis Pre-transplant evaluation for chronic liver disease- Primary documented in this encounter Care Teams Career Technology Teacher Relationship Specialty Start Date End Date System, Provider Not In PCP - General 09/10/25 documented as of this encounter
--- OUTSIDE RECORDS SUMMARY | 2025-09-10 12:00 | XMS_ITS | Encounter Summary ---
Author Organization [facility] Address [address] [place] [address] Care Team Providers Care Tool Hardener Name Role Phone System, Provider Not In [...] release of HIV test results or diagnoses. [id number] Reason for Visit * Reason Comments Liver Transplant Evaluation Encounter Details Date Type Department Care Team (Late st Contact Info) Description 09/10/2025 1:00 PM EDT Office Visit [facility] Liver Transplant at [address] [address] Buddy Zimmerman MD [address] [place] [id number] Pre-transplant evaluation for chronic liver disease [...] Hepatology Clinic Note Name: David Pop CSN: [id number] Chief Complaint: Liver Transplant Evaluation History of [...] get MELD labs today Buddy Zimmerman MD Aquatics In[employer] Medicine Division of Gastroenterology and Hepatology [1] [...] - 129 mg/dL 09/10/2025 8:21 PM EDT [employer] [facility] Comment: Desirable: < 130 mg/dL Above Desirable: 130-159 mg/dL Borderline High: 160-189 mg/dL High: 190-219 mg/dL Very High: > 219 mg/dL Cholesterol, Total 135 0 - 200 mg/dL 09/10/2025 8:21 PM EDT [facility] Triglycerides 60 10 - 149 mg/dL 09/10/2025 8:21 PM EDT [facility] HDL 26(L) 60 - 92 [...] LDL Cholesterol 97 mg/dL 8:21 PM EDT [facility]ALTH [facility] Plasma 09/10/2025 5:03 PM EDT 09/10/2025 5:52 PM EDT Narrative HEALTH LAB - 09/10/2025 8:21 PM EDT Must the patient be fasting for this test?->No LDL cholesterol calculated using the Friedewald equation. us Buddy Zimmerman MD LAB BLOOD ORDERABLES Final Resul t Performing Organization Address City/[facility]/ZIP Co de Phone Number [facility] [address] [facility]. [address] * ABO/Rh (09/10/2025 5:03 PM EDT) ABO Grouping A 09/10/2025 7:26 PM EDT [facility] Rh Type Positive 09/10/2025 7:26 PM EDT [facility] Blood 09/10/2025 5:03 PM EDT 09/10/2025 6:49 PM EDT us Buddy Zimmerman MD BLOOD BANK TEST ORDERABLES Final Result Performing Organization Address [facility] de Phone Number [facility] [address] * AFP tumor marker (09/10/2025 5:03 PM EDT) AFP-Tumor Marker 2.0 0.0 - 9.0 ng/mL 09/10/2025 8:52 PM EDT [facility] Serum 09/10/2025 5:03 PM EDT 09/10/2025 6:42 PM EDT Narrative [facility] - 09/10/2025 8:52 PM EDT The testing method for AFP is a chemiluminescent immunoassay manufactured by [employer] Concentrations of AFP obtained by different assay methods or kits may vary and cannot be used interchangeably. AFP results cannot be interpreted as absolute evidence of the presence or absence of malignant disease. us Buddy Zimmerman MD LAB BLOOD ORDERABLES Final Resul t Performing Organization Address [facility]/ZIP Co de Phone Number [facility] [address] [facility]. [address] * Hemoglobin A1c (09/10/2025 5:03 PM EDT) Hemoglobin A1C 4.0 4.0 - 5.6 % 09/10/2025 11:22 PM EDT [facility] Comment: Hemoglobin A1c Interpretation Guidelines: [...] MD LAB BLOOD ORDERABLES Final Resul t [facility] [address] [facility]. [address] * TSH (Thyroid Stimulating Hormone) (09/10/2025 5:03 PM EDT) Pathologist [facility] TSH 2.85 0.45 - 4.12 uIU/mL 09/11/2025 12:13 AM EDT [facility] Serum 09/10/2025 5:03 PM EDT 09/10/2025 6:42 PM EDT us Buddy Zimmerman MD LAB BLOOD ORDERABLES Final Resul t [facility] [address] [facility]. [address] * (ABNORMAL) Protime-INR (09/10/2025 5:03 PM EDT) Protime 24.2(H) 12.1 - 15.1 seconds 09/10/2025 7:00 PM EDT [facility] INR 2.0(H) 0.9 - 1.1 09/10/2025 7:00 PM EDT [facility] Comment: RECOMMENDED THERAPEUTIC RANGES USING INR : Stable oral anticoagulant therapy: 2.0 - 3.0 Mechanical prosthetic heart valve: 2.5 - 3.5 Recurrent acute myocardial infarction: 2.5 - 3.5 Plasma 09/10/2025 5:03 PM EDT 09/10/2025 6:42 PM EDT Buddy Zimmerman MD LAB BLOOD ORDERABLES Final Resul t [facility] [address] [id number], [facility] * (ABNORMAL) Hepatic Function Panel (09/10/2025 5:03 PM EDT) Total Bilirubin 5.9(H) 0.0 - 1.5 mg/dL 09/10/2025 8:21 PM EDT [facility] Bilirubin, Direct 1.62(H) 0.00 - 0.40 mg/dL 09/10/2025 8:21 PM EDT [facility] AST 40(H) 13 - 39 U/L 09/10/2025 8:21 PM EDT [facility] ALT 29 7 - 52 U/L 09/10/2025 8:21 PM EDT [facility] Alkaline Phosphatase 136(H) 36 - 125 U/L 09/10/2025 8:21 PM EDT [facility] Total Protein 6.2(L) 6.4 - 8.9 g/dL 09/10/2025 8:21 PM EDT [facility] Albumin 2.1(L) 3.5 - 5.7 g/dL 09/10/2025 8:21 PM EDT [facility] Bilirubin, Indirect 4.28(H) 0.00 - 1.10 mg/dL 09/10/2025 8:21 PM EDT [facility] Plasma 09/10/2025 5:03 PM EDT 09/10/2025 5:52 PM EDT Buddy Zimmerman MD LAB BLOOD ORDERABLES Final Resul t [facility] [address] [place] [id number], [facility] * (ABNORMAL) Basic metabolic panel (09/10/2025 5:03 PM EDT) Sodium 142 133 - 146 mmol/L 09/10/2025 8:21 PM EDT [facility] Potassium 3.8 3.5 - 5.3 mmol/L 09/10/2025 8:21 PM EDT [facility] Chloride 110 98 - 110 mmol/L 09/10/2025 8:21 PM EDT [facility] CO2 27 21 - 33 mmol/L 09/10/2025 8:21 PM EDT [facility] Comment:High lactate dehydro genase concentrations in patient samples may cause falsely increased bicarbonate results. If markedly elevated LDH is observed or suspected, please assess results in conjunction with patient`s clinical presentation. In cases of discrepant results, consider evaluating CO2 in with a blood gas order. Anion Gap 5 3 - 16 mmol/L 09/10/2025 8:21 PM EDT [facility] BUN 10 7 - 25 mg/dL 09/10/2025 8:21 PM EDT [facility] Creatinine 0.90 0.60 - 1.30 mg/dL 09/10/2025 8:21 PM EDT [facility] Glucose 79 70 - 100 mg/dL 09/10/2025 8:21 PM EDT [facility] Calcium 7.9(L) 8.6 - 10.3 mg/dL 09/10/2025 8:21 PM EDT [facility] Osmolality, Calculated 292 278 - 305 mOsm/kg 09/10/2025 8:21 PM EDT [facility] EGFR >90 09/10/2025 8:21 PM EDT [facility] Comment: As of 2022, the [...] MD LAB BLOOD ORDERABLES Final Resul t [facility] [address] [place] [address], [facility] * (ABNORMAL) CBC (09/10/2025 5:03 PM EDT) WBC 4.2 3.8 - 10.8 10E3/uL 09/10/2025 6:57 PM EDT [facility] RBC 3.39(L) 4.20 - 5.80 10E6/uL 09/10/2025 6:57 PM EDT [facility] Hemoglobin 11.4(L) 13.2 - 17.1 g/dL 09/10/2025 6:57 PM EDT [facility] Hematocrit 33.9(L) 38.5 - 50.0 % 09/10/2025 6:57 PM EDT [facility] MCV 100.1(H) 80.0 - 100.0 fL 09/10/2025 6:57 PM EDT [facility] MCH 33.7(H) 27.0 - 33.0 pg 09/10/2025 6:57 PM EDT [facility] MCHC 33.7 32.0 - 36.0 g/dL 09/10/2025 6:57 PM EDT [facility] RDW 18.5(H) 11.0 - 15.0 % 09/10/2025 6:57 PM EDT [facility] Platelets 66(L) 140 - 400 10E3/uL 09/10/2025 6:57 PM EDT [facility] MPV 7.8 7.5 - 11.5 fL 09/10/2025 6:57 PM EDT [facility] Whole Blood 09/10/2025 5:03 PM EDT 09/10/2025 6:33 PM EDT Buddy Zimmerman MD LAB BLOOD ORDERABLES Final Resul t [facility] [address] [place] [address], [facility] * ECG 12-Lead (MUSE) (09/10/2025 12:14 PM EDT) 09/10/2025 12:1 4 PM EDT Narrative MUSE - 09/10/2025 3:28 PM EDT Ventricular Rate: 64 BPM Atrial Rate: 64 BPM P-R Interval: 190 ms QRS Duration: 84 ms QT: 464 ms QTc: 478 ms P Effie: 27 degrees R Effie: 58 degrees T Effie: 22 degrees Diagnosis Line: NORMAL SINUS RHYTHM ^ NORMAL ECG ^ No previous ECGs available ^ Confirmed by MD TIP, [facility] ([id number]) on 09/10/2025 3:28:36 PM us Buddy Zimmerman MD ECG ORDERABLES Final Result MUSE documented in this encounter Visit Diagnoses Diagnosis Pre-transplant evaluation for chronic liver disease- Primary Alcoholic cirrhosis of liver with ascites (CMS-HCC) Alcoholic cirrhosis of liver with ascites (CMS-HCC) Pre-transplant evaluation for chronic liver disease documented in this encounter Care Teams Tool Hardener Relationship Specialty Start Date End Date System, Provider Not In PCP - General 09/10/25 documented as of this encounter
--- OUTSIDE RECORDS SUMMARY | 2025-09-10 12:30 | XMS_ITS | Encounter Summary ---
Author Organization [facility] Address [address] [place] [id number] Care Team Providers Care Manager Of Finance Name Role Phone System, Provider Not In [...] release of HIV test results or diagnoses. [id number] Health Encounter Details Date Type Department Care Team (Late st Contact Info) Description 09/10/2025 1:30 PM EDT Office Visit [facility] Liver Transplant at [address] [address] Lane Troy MD [facility] [place] [address] Alcoholic cirrhosis of liver with ascites (CMS-HCC) (Primary Dx); Pre-transplant evaluation for chronic liver disease Social History Tobacco Use Types Packs/Day Years [...] as of this encounter Progress Notes * Lane Troy MD - 09/10/2025 1:30 PM EDT Liver Transplant Surgery Evaluation and Note Patient: David Pop Age: 65 y.o. Reason for Visit: Liver Transplant Evaluation HPI: A 65 y.o. 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 Patient is listed [facility] and presents for liver transplant evaluation for dual listing. Current MELD score is 23 and blood type is A. Last drink was in 2022, he had paracenteses intermittently, last one was in June 2025, currently on lasix and aldactone. His HE is well-controlled MELD 3.0: 23 at 09/10/2025 5:03 PM Calculated from: Serum Creatinine: 0.9 mg/dL (Using min of 1 mg/dL) at 09/10/2025 5:03 PM Serum Sodium: 142 mmol/L (Using max of 137 mmol/L) at 09/10/2025 5:03 PM Total Bilirubin: 5.9 mg/dL at 09/10/2025 5:03 PM Serum Albumin: 2.1 g/dL at 09/10/2025 5:03 PM INR(ratio): 2 at 09/10/2025 5:03 PM Age at listing (hypothetical): 65 years Sex: Male at 09/10/2025 5:03 PM Prior abdominal surgeries include: previous inguinal hernia repair > 20yrs ago History of portal vein thrombosis: No Review of Systems: Constitutional: no fever, no chills Cardiovascular: no chest pain, no palpitations Respiratory: no cough, no shortness of breath Review of systems performed. See SURESH FALCON review. Vital Signs: BP Readings from Last 3 Encounters: 09/10/25 127/68 09/10/25 127/68 Wt Readings from Last 3 Encounters: 09/10/25 217 lb 6.4 oz (98.6 kg) BMI: Estimated body mass index is 35.09 kg/m?? as calculated from the following: Height as of an earlier encounter on 09/10/25: 5' 6 (1.676 m). Weight as of an earlier encounter on 09/10/25: 217 lb 6.4 oz (98.6 kg). BSA: Estimated body surface area is 2.14 meters squared as calculated from the following: Height as of an earlier encounter on 09/10/25: 5' 6 (1.676 m). Weight as of an earlier encounter on 09/10/25: 217 lb 6.4 oz (98.6 kg). There were no vitals filed for this visit. The following portions of the patient history were reviewed and updated as appropriate: allergies, current medications, family, medical, surgical and social history and problem list. Past Medical History: Past Medical History: Diagnosis Date Epididymitis Hemochromatosis Hypertension Kidney stone UTI (urinary tract infection) Past Surgical History: Past Surgical History: Procedure Laterality Date HERNIA REPAIR Family History: No family history on file. Social History: Social History Socioeconomic History Marital [...] Resource Strain: Low Risk (06/15/2025) Received from [facility] Overall Financial Resource Strain (CARDIA) How hard is it for you to pay for the very basics like food, housing, medical care, and heating?: Not hard at all Food Insecurity: No Food Insecurity (06/15/2025) Received from [facility] Hunger Vital Sign Worried About Running Out of Food in the Last Year: Never true Ran Out of Food in the Last Year: Never true Transportation Needs: No Transportation Needs (06/15/2025) Received from [facility] PRAPARE - Transportation In the past 12 months, has lack of transportation kept you from medical appointments or from getting medications?: No In the past 12 months, has lack of transportation kept you from meetings, work, or from getting things needed for daily living?: No Physical Activity: Inactive (06/15/2025) Received from [facility] Exercise Vital Sign Days of Exercise per Week: 0 days Minutes of Exercise per Session: 0 min Stress: No Stress Concern Present (06/15/2025) Received from [facility] [place] [facility] Occupational [facility] - Occupational Stress Questionnaire Do you feel stress - tense, restless, nervous, or anxious, or unable to sleep at night because yourmind is troubled all the time - these days?: Only a little Social Connections: Socially Integrated (06/15/2025) Received from [facility] Social Connection and Isolation Panel [NHANES] Frequency of Communication with Friends and Family: More than three times a week Frequency of Social Gatherings with Friends and Family: More than three times a week Attends Hoahaoism Services: More than 4 times per year Active Member of Clubs or Organizations: Yes Attends Club or Organization Meetings: Not on file Marital Status: Intimate Partner Violence: Not At Risk (06/15/2025) Received from [facility] Humiliation, Afraid, Rape, and Kick questionnaire Fear of Current or Ex-Partner: No Emotionally Abused: No Physically Abused: No Sexually Abused: No Housing Stability: Low Risk (06/15/2025) Received from [facility] Housing Stability Vital Sign Unable to Pay for Housing in the Last Year: No Number of Times Moved in the Last Year: 0 Homeless in the Last Year: No Medications: Current Outpatient Medications Medication Sig calcitRIOL Take 1 capsule (0.25 mcg total) by mouth. Take 1 capsule by mouth 5 times a week. Once daily Wednesday through Wednesday carvediloL Take 1 tablet (3.125 mg total) by mouth 2 times a day. ergocalciferol Take 1 capsule (50,000 Units total) by mouth once a week. furosemide Take 2 tablets (40 mg total) by mouth daily. omeprazole Take 2 capsules (40 mg total) by mouth daily. spironolactone Take 3 tablets (150 mg total) by mouth daily. Xifaxan Take 1 tablet (550 mg total) by mouth 2 times a day. No current facility-administered medications for this visit. Allergies: Allergies[1] Physical Exam: General: no apparent distress, conversant Gastrointestinal: abdomen is soft nontender, nondistended, no palpable masses Extremity: warm, no clubbing, cyanosis, or edema Lymph: no palpable lymphadenopathy Skin: no rashes or ulcers, normal temperature and turgor Psych: appropriate affect, alert and oriented to person, place, and time Labs: Lab name 08/29/25 0000 SODIUM 139 POTASSIUM 4.4 CHLORIDE 109 CO2 27* BUN 11 CREATININE 0.9 GLUCOSE 113 ALBUMIN 2.2* CALCIUM 8.2 AST 52 ALT 45 BILIRUBIN TOTAL 4.2 ALK PHOS 326 INR 1.71* Imaging: No imaging available Assessment/Plan: A 65 y.o. male with due to EtOH and A1AT who presents to the clinic for liver transplant evaluation. He is a potential candidate. - Patient needs imaging from [facility] pushed over to system for further review Use and allocation of SCD, SPONGE CLIPPER, DCD and LDLT allografts discussed in detail. . Proceed with age appropriate evaluation. - The patient is not a candidate for subtotal liver resection - The patient's tumor(s) is less than 5 cm in diameter - There is no macrovascular involvement - There is no identifiable extrahepatic spread of tumor to surrounding lymph nodes, lungs, abdominal organ or bone - The transplant is furnished in a facility that is approved by [facility] as meeting institutional coverage criteria for liver transplants The risks and benefits, rationale, treatment plan and multidisciplinary evaluation of liver transplantation were discussed with the patient. Specifically, I explained living vs. donor transplantation, standard criteria vs. extended criteria livers. We discussed organ allocation and waiting time in this region. I reviewed our SRTR data as well as national SRTR data for liver transplantation. I reviewed the differences in graft and patient survival and discussed our 30 day, 1 year and 3 year survival results. We discussed the benefits of transplantation including a significant survival benefit as well as a quality of life benefit. I outlined the meaning of MELD score and its use in organ allocation. Use of extended criteria livers carries a higher rate of long-term graft loss and delayed graft function.I also explained the use and rationale of CDC or PHS increased high-risk livers which carry a risk of HIV, HBV or HCV infection of 1% with the use of nucleic acid testing. We also discussed the operative risks including hepatic artery stenosis (1%), portal vein stenosis (1%), primary non function (1-5%), seroma (10%), wound infection, reoperation (30%), bile duct stenosis and stricture (10%) or leak and finally from surgery (5%). I also explained the rodent exterminator risks of transplantation and immunosuppression including viral infection and cancer both solid organand lymphoma. --- Lane Troy MD Transplant [employer] associate Section of Transplantation [facility] [1] Allergies Allergen Reactions Lisinopril Other (See Comments) documented in this encounter Plan of Treatment Not on file documented as of this encounter Visit Diagnoses Diagnosis Alcoholic cirrhosis of liver with ascites (CMS-HCC)- Primary Pre-transplant evaluation for chronic liver disease documented in this encounter Additional Health Concerns Assessment Noted Time PHQ-9 Depression Total Score: 8 09/10/20 11:09 AM EDT documented as of this encounter Care Teams Manager Of Finance Relationship Specialty Start Date End Date System, Provider Not In PCP - General 09/10/25 documented as of this encounter
--- OUTSIDE RECORDS SUMMARY | 2025-09-10 12:30 | XMS_ITS | Encounter Summary ---
Author Organization [facility] Address [address] [place] [address] Care Team Providers Care Bench Scientist Name Role Phone System, Provider Not In [...] release of HIV test results or diagnoses. [id number] Health Encounter Details Date Type Department Care Team (Late st Contact Info) Description 09/10/2025 1:30 PM EDT Office Visit [facility] Liver Transplant at [address] [address] [address] Troy MD [facility] [place] [address] Alcoholic cirrhosis of liver with [...] Resource Strain: Low Risk (06/15/2025) Received from [facility] Overall Financial Resource Strain (CARDIA) How hard is it for you to pay for the very basics like food, housing, medical care, and heating?: Not hard at all Food Insecurity: No Food Insecurity (06/15/2025) Received from [facility] Hunger Vital Sign Worried About Running Out of Food in the Last Year: Never true Ran Out of Food in the Last Year: Never true Transportation Needs: No Transportation Needs (06/15/2025) Received from [facility] PRAPARE - Transportation In the past 12 months, has lack of transportation kept you from medical appointments or from getting medications?: No In the past 12 months, has lack of transportation kept you from meetings, work, or from getting things needed for daily living?: No Physical Activity: Inactive (06/15/2025) Received from [facility] Exercise Vital Sign Days of Exercise per Week: 0 days Minutes of Exercise per Session: 0 min Stress: No Stress Concern Present (06/15/2025) Received from [facility] [place] of Occupational Health - Occupational Stress Questionnaire Do you feel stress - tense, restless, nervous, or anxious, or unable to sleep at night because yourmind is troubled all the time - these days?: Only a little Social Connections: Socially Integrated (06/15/2025) Received from [facility] Social Connection and Isolation Panel [NHANES] Frequency of Communication with Friends and Family: More than three times a week Frequency of Social Gatherings with Friends and Family: More than three times a week Attends Judaism Services: More than 4 times per year Active Member of Clubs or Organizations: Yes Attends Club or Organization Meetings: Not on file Marital Status: Intimate Partner Violence: Not At Risk (06/15/2025) Received from [facility] Humiliation, Afraid, Rape, and Kick questionnaire Fear of Current or Ex-Partner: No Emotionally Abused: No Physically Abused: No Sexually Abused: No Housing Stability: Low Risk (06/15/2025) Received from [facility] Housing Stability Vital Sign Unable to [...] further review Use and allocation of SCD, ROAD SUPERVISOR, DCD and LDLT allografts discussed in [...] in a facility that is approved by [facility] as meeting institutional coverage criteria for [...] from surgery (5%). I also explained the exterminator risks of transplantation and immunosuppression including viral infection and cancer both solid organand lymphoma. --- Lane Troy MD Transplant Beater Operatoroffice clerk routine Section of Transplantation [facility] [1] Allergies Allergen Reactions Lisinopril Other (See Comments) documented in this encounter Plan of Treatment Not on file documented as of this encounter Visit Diagnoses Diagnosis Alcoholic cirrhosis of liver with ascites (CMS-HCC)- Primary Pre-transplant evaluation for chronic liver disease documented in this encounter Care Teams Bench Scientist Relationship Specialty Start Date End Date System, Provider Not In PCP - General 09/10/25 documented as of this encounter
--- OUTSIDE RECORDS SUMMARY | 2025-09-10 13:00 | XMS_ITS | Encounter Summary ---
Author Organization [facility] Address [address] [place] [id number] Care Team Providers Care Sales And Marketing Representative Name Role Phone System, Provider Not In [...] release of HIV test results or diagnoses. [id number] Reason for Visit * Reason Comments ID Consult Visit (Follow Up) Liver Transplant Pre-evaluation Encounter Details Date Type Department Care Team (Late st Contact Info) Description 09/10/2025 2:00 PM EDT Office Visit [facility] Liver Transplant at [address] [phone] Unknown, Attending Provider Navi Sims MD [address] [place] [phone] Pre-transplant evaluation for chronic liver disease (Primary Dx); Encounter for pre-transplant evaluation for liver transplant Social History Tobacco Use Types Packs/Day Years [...] on file documented as of this encounter Patient Instructions * Patient Instructions* Navi Sims MD - 09/10/2025 2:00 PM EDT Get labs today Get Tetanus booster Still need flu, COVID, Prevnar pneumonia, Shingles and Hepatitis A vaccines as well Ok for transplant from infection standpoint Return as needed documented in this encounter Progress Notes * Navi Sims MD - 09/10/2025 2:00 PM EDT Infectious Disease Pre-Transplant Consultation Patient: David Pop CSN: [id number] Chief Complaint Pre-transplant evaluation, infectious History of Present Illness David Pop is a 65 y.o. 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 Childhood immunizations and illnesses: got all childhood vaccines, still has tonsils, no PE tubes. Unsure if had measles, mumps. Unsure if had VZV. Places of habitation and travel: Born in [place], no SW travel. 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 Lives with , 3 cats, does the cat litter box. No other pets. Hobbies: fish. Discussed hot tub avoidance. No known TB exposure, no homeless, no assisted, no ivdu, no healthcare work. Current vaccinations: needs all of them Significant infections: PNA in May, outpatient abx, no BSI, no SBP; no UTIs, SSTIs; had epidydimitis 11/2023. Has a kidney stone. Review of Systems Review of Systems Constitutional: Positive for malaise/fatigue. Negative for fever. HENT: Negative for congestion and sinus pain. Eyes: Negative for photophobia, pain and discharge. Respiratory: Positive for shortness of breath. Negative for cough. Cardiovascular: Positive for leg swelling. Negative for chest pain. Gastrointestinal: Positive for diarrhea. Negative for abdominal pain. Genitourinary: Negative for dysuria and hematuria. Musculoskeletal: Positive for joint pain. Negative for myalgias. Skin: Negative for itching and rash. Neurological: Negative for tremors and focal weakness. Psychiatric/Behavioral: Negative for depression and hallucinations. Past Medical History Past Medical History: Diagnosis Date Epididymitis Hemochromatosis Hypertension Kidney stone UTI (urinary tract infection) Past Surgical History Past Surgical History: Procedure Laterality Date HERNIA REPAIR Family History History reviewed. No pertinent family history. Social History Social History Socioeconomic History Marital status: Spouse [...] Resource Strain: Low Risk (06/15/2025) Received from [facility] Overall Financial Resource Strain (CARDIA) How hard is it for you to pay for the very basics like food, housing, medical care, and heating?: Not hard at all Food Insecurity: No Food Insecurity (06/15/2025) Received from [facility] Hunger Vital Sign Worried About Running Out of Food in the Last Year: Never true Ran Out of Food in the Last Year: Never true Transportation Needs: No Transportation Needs (06/15/2025) Received from [facility] PRAPARE - Transportation In the past 12 months, has lack of transportation kept you from medical appointments or from getting medications?: No In the past 12 months, has lack of transportation kept you from meetings, work, or from getting things needed for daily living?: No Physical Activity: Inactive (06/15/2025) Received from [facility] Exercise Vital Sign Days of Exercise per Week: 0 days Minutes of Exercise per Session: 0 min Stress: No Stress Concern Present (06/15/2025) Received from [facility] [employer] [place] [employer] - Occupational Stress Questionnaire Do you feel stress - tense, restless, nervous, or anxious, or unable to sleep at night because yourmind is troubled all the time - these days?: Only a little Social Connections: Socially Integrated (06/15/2025) Received from [facility] Social Connection and Isolation Panel [NHANES] Frequency of Communication with Friends and Family: More than three times a week Frequency of Social Gatherings with Friends and Family: More than three times a week Attends Latter-Day Services: More than 4 times per year Active Member of Clubs or Organizations: Yes Attends Club or Organization Meetings: Not on file Marital Status: Intimate Partner Violence: Not At Risk (06/15/2025) Received from [facility] Humiliation, Afraid, Rape, and Kick questionnaire Fear of Current or Ex-Partner: No Emotionally Abused: No Physically Abused: No Sexually Abused: No Housing Stability: Low Risk (06/15/2025) Received from [facility] Housing Stability Vital Sign Unable to Pay for Housing in the Last Year: No Number of Times Moved in the Last Year: 0 Homeless in the Last Year: No Medications Outpatient Meds: Current Outpatient Medications Medication Sig calcitRIOL Take [...] No current facility-administered medications for this visit. Vital Signs There were no vitals filed for this visit. Physical Exam Physical Exam Constitutional: General: He is not in acute distress. HENT: Head: Normocephalic and atraumatic. Eyes: General: Scleral icterus present. Conjunctiva/sclera: Conjunctivae normal. Pulmonary: Effort: No respiratory distress. Breath sounds: No wheezing. Abdominal: General: Abdomen is flat. There is no distension. Tenderness: There is abdominal tenderness. Musculoskeletal: General: Swelling present. No deformity. Skin: General: Skin is warm. Coloration: Skin is jaundiced. Neurological: General: No focal deficit present. Mental Status: He is alert and oriented to person, place, and time. Psychiatric: Mood and Affect: Mood normal. Behavior: Behavior normal. Laboratory Data No results found for: WBC No results found for: HGB No results found for: PLT Lab Results Component Value Date ALT 45 08/29/2025 Lab Results Component Value Date AST 52 08/29/2025 Lab Results Component Value Date ALKPHOS 326 08/29/2025 Lab Results Component Value Date BILITOT 4.2 08/29/2025 Lab Results Component Value Date INR 1.71 (A) 08/29/2025 Lab Results Component Value Date CREATININE 0.9 08/29/2025 Lab Results Component Value Date EGFR 85 08/29/2025 HAV immune HBV immune HCV negative HIV negative CMV IGG negative EBV IgG positive No results found for: VARICELLAIGG No results found for: TREPIA No results found for: QUANTIFERTB No results found for: QFTTBGOLD No results found for: MITOGENINT No results found for: TOXOIGG No results found for: STRONGYLAB No results found for: MUMPSIGG No results found for: RUBELLAIGG No results found for: RUBEOLAIGG Diagnostic Studies Abdo US 05/2025 Cirrhosis. No focal liver lesion. Splenomegaly. Moderate volume ascites. CT A/P 02/2025 Cirrhotic morphology of the liver with sequela of portal hypertension including borderline splenomegaly, portosystemic collaterals, portal colopathy and small abdominopelvic ascites. Chronic left renal pelvic calculi and inflammatory changes. CT chest pending Assessment & Plan 65 y.o. male with ESLD here for pre-transplant infectious evaluation Encounter for pre-transplant evaluation for liver transplant - HIV, HCV negative - CMV IgG negative, antivirals to be based on donor serologies - will need 3-6 months PJP proph post txp - vaccinations given today: TdAP - vaccinations still needed: COVID, flu, Shingrix, PCV; counseled on all but patient reticent for further vaccines - immune to HAV, HBV - based on exposures/risks, send VZV IgG, Trepia, Quant gold, Toxo IgG, Strongyloides, MMR panel - ok for transplant from ID perspective - RTC prn Signed: Navi Sims MD 09/10/2025, 5:14 PM Number and Complexity of Problems (Level 3) During this encounter, I addressed 1 stable chronic illness Amount and/or Complexity of Data Ordered, Reviewed, or Analyzed (Level 5) I reviewed 3+ test(s) including:. I ordered 3+ test(s) including:. I discussed the patient's management or test interpretation with the following provider(s): Txp. Risk of Complication and/or Morbidity or Mortality of Patient Management (Level 5) The patient's management entails High risk of complications and/or morbidity or mortality. Overall LOS: 5 documented in this encounter Plan of Treatment Not on file documented as of this encounter Results * (ABNORMAL) Varicella zoster antibody, IgG (09/10/2025 5:03 PM EDT) Pathologist [facility] Varicella IgG Positive( A) Negative S/CO 09/10/2025 11:49 PM EDT [facility] Comment:Result indicates the presence of detectable VZV IgG antibodies. A positive result is generally indicative of exposure to the pathogen or administration of specific immunoglobulins, but it is no indication of active infection or stage of disease. This test is not approved for determining vaccine-induced immunity to varicella zoster virus. VZV NUM 15.50(H) 0.00 - 0.99 S/CO 09/10/2025 11:49 PM EDT [facility] Serum 09/10/2025 5:03 PM EDT 09/10/2025 10:26 PM EDT Navi Sims MD LAB BLOOD ORDERABLES Final Resu lt Performing Organization Address [facility] Co de Phone Number [facility] [address] * QuantiFERON TB2 Ag (09/10/2025 5:03 PM EDT) Pathologist [facility] QuantiFERON TB2 Ag Value 0.09 09/12/2025 1:19 PM EDT [facility] Plasma 09/10/2025 5:03 PM EDT 09/10/2025 6:29 PM EDT Navi Sims MD LAB BLOOD ORDERABLES Final Resu lt Performing Organization Address City/[facility]/ZIP Co de Phone Number [facility] [address] * QuantiFERON TB1 Ag (09/10/2025 5:03 PM EDT) QuantiFERON TB1 Ag Value 0.08 09/12/2025 1:19 PM EDT [facility] Plasma 09/10/2025 5:03 PM EDT 09/10/2025 6:29 PM EDT Navi Sims MD LAB BLOOD ORDERABLES Final Resu lt [facility] [address] [facility]. [address] * QuantiFERON Nil (09/10/2025 5:03 PM EDT) Pathologist [facility] QuantiFERON Nil 0.02 1:19 PM EDT [facility] Plasma 09/10/2025 5:03 PM EDT 09/10/2025 6:29 PM EDT Navi Sims MD LAB BLOOD ORDERABLES Final Resu lt Performing Organization Address City/[facility]/ZIP Co de Phone Number [facility] [address] [facility]. [address] * QuantiFERON Mitogen (09/10/2025 5:03 PM EDT) Pathologist [facility] QuantiFERON Interpretation Negative Negative 09/12/2025 1:19 PM EDT [facility] Comment:Negative result pilar cates M. tuberculosis infection is NOT likely. Negative results do not preclude tuberculosis infection (especially in immunosuppressed patients). Negative results have a TB antigen minus Nil value less than 0.35 IU/mL. In cases with high suspicion of disease, retesting or additional testing with medical evaluation may be useful. QuantiFERON Mitogen 8.77 09/12 1:19 PM EDT [facility] Plasma 09/10/2025 5:03 PM EDT 09/10/2025 6:29 PM EDT Narrative [facility] - 09/12/2025 1:19 PM EDT The Nil value reflects the background interferon gamma immune response of patient's blood sample. The mitogen tube serves as a control for the test. The QuantiFERON-TB Gold Plus result is determined by subtracting the Nil value from either TB antigen (Ag) tube. This test is designed to aid in the diagnosis of Mycobacterium tuberculosis infection, including Latent TB Infection (LTBI) and Tuberculosis (TB). A positive result suggests TB infection and should be followed by medical evaluation. A negative result does not preclude TB infection, especially in immunosuppressed states. Please see www.cdc.gov/tb. Navi Sims MD LAB BLOOD ORDERABLES Final Resu lt Performing Organization Address City/[facility]/ZIP Co de Phone Number [facility] [address] [facility]. [address] * (ABNORMAL) Strongyloides Ab (09/10/2025 5:03 PM EDT) Pathologist [facility] Strongyloides Ab Positive( A) Negative 09/17/2025 2:56 PM EST [facility] Serum 09/10/2025 5:03 PM EDT 09/17/2025 3:07 PM EST Narrative [facility] - 09/17/2025 3:07 PM EST PERFORMED AT: [address] [id number] CDL DRIVER: Kevin Holguin MD PHONE: [phone] Navi Sims MD LAB BLOOD ORDERABLES Final Resu lt Performing Organization Address City/[facility] Co de Phone Number [facility] [address] [facility]. [address] * Toxoplasma gondii antibody, IgG (09/10/2025 5:03 PM EDT) Pathologist [facility] Toxoplasma Gondii IgG <3.0 0.0 - 7.1 IU/mL 09/12/2025 6:21 AM EDT [facility] Comment: Negative <7.2 Equivocal 7.2 - 8.7 Positive >8.7 Serum 09/10/2025 5:03 PM EDT 09/12/2025 7:06 AM EDT Narrative [facility] - 09/12/2025 7:06 AM EDT PERFORMED AT: [facility] [address] [id number] CDL DRIVER: Mateo Miller, PhD PHONE: [phone] Navi Sims MD LAB BLOOD ORDERABLES Final Resu lt [facility] [address]. [address] * Syphilis Screening (Trepia) (09/10/2025 5:03 PM EDT) Treponema Pallidum Negative Negative 09/10/2025 11:55 PM EDT [facility] Comment: No serological evidence of infection with Treponema pallidum (incubating or early primary syphilis cannot be excluded). Serum 09/10/2025 5:03 PM EDT 09/10/2025 10:26 PM EDT Navi Sims MD LAB BLOOD ORDERABLES Final Resu lt [facility] [address] [facility]. [address] * (ABNORMAL) MMR(IgG) Panel (Measles, Mumps, Rubella) (09/10/2025 5:03 PM EDT) Mumps IgG Positive 09/10/2025 11:51 PM EDT [facility] MUMPS IGG NUM >300.00(H) 0.0 - 8.9 U/mL 09/10/2025 11:51 PM EDT [facility] Rubella IgG Scr Positive 09/10/2025 11:51 PM EDT [facility] RUB NUM 30.20(H) 0.0 - 0.8 INDEX 09/10/2025 11:51 PM EDT [facility] Rubeola Ab, IgG Positive 09/10/2025 11:50 PM EDT [facility] RUB IGG NUM >300.00(H) 0.00 - 13.40 U/mL 09/10/2025 11:50 PM EDT [facility] Serum 09/10/2025 5:03 PM EDT 09/10/2025 10:26 PM EDT Narrative [facility] - 09/10/2025 11:51 PM EDT Presence of detectable measles virus IgG antibodies. A positive result generally indicates exposure to measles virus or previous vaccination. Presence of detectable mumps virus IgG antibodies. A positive result generally indicates past exposure to mumps virus or previous vaccination. Sample is considered positive for IgG antibodies to rubella virus. us Navi Sims MD LAB BLOOD ORDERABLES Final Resu lt [facility] [address] [place] [address], [facility] documented in this encounter Visit Diagnoses Diagnosis Pre-transplant evaluation for chronic liver disease- Primary Encounter for pre-transplant evaluation for liver transplant Alcoholic cirrhosis of liver with ascites (CMS-HCC) Pre-transplant evaluation for chronic liver disease * Assessment & Plan Note - Navi Sims MD - 09/10/2025 5:13 PM EDTAssociated Problem(s): Encounter for pre-transplant evaluation for liver transplant - HIV, HCV negative - CMV IgG negative, antivirals to be based on donor serologies - will need 3-6 months PJP proph post txp - vaccinations given today: TdAP - vaccinations still needed: COVID, flu, Shingrix, PCV; counseled on all but patient reticent for further vaccines - immune to HAV, HBV - based on exposures/risks, send VZV IgG, Trepia, Quant gold, Toxo IgG, Strongyloides, MMR panel - ok for transplant from ID perspective - RTC prn documented in this encounter Additional Health Concerns Assessment Noted Time PHQ-9 Depression Total Score: 8 09/10/20 25 11:09 AM EDT documented as of this encounter Care Teams Sales And Marketing Representative Relationship Specialty Start Date End Date System, Provider Not In PCP - General 09/10/25 documented as of this encounter
--- OUTSIDE RECORDS SUMMARY | 2025-09-10 13:00 | XMS_ITS | Encounter Summary ---
Author Organization [facility] Address [address] [place] [address] Care Team Providers Care Air Cargo Ground Crew Supervisor Name Role Phone System, Provider Not [...] release of HIV test results or diagnoses. [id number] Reason for Visit * Reason Comments ID Consult Visit (Follow Up) Liver Transplant Pre-evaluation Encounter Details Date Type Department Care Team (Late st Contact Info) Description 09/10/2025 2:00 PM EDT Office Visit [facility] Liver Transplant at [address] [phone] Unknown, Attending Provider Navi Sims MD [address] [place] [phone] Pre-transplant evaluation for chronic liver disease [...] Disease Pre-Transplant Consultation Patient: David Pop CSN: [id number] Chief Complaint Pre-transplant evaluation, infectious History of Present Illness David Pop is a 65 y.o. 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 Childhood immunizations and illnesses: got all childhood vaccines, still has tonsils, no PE tubes. Unsure if had measles, mumps. Unsure if had VZV. Places of habitation and travel: Born in [place], no SW travel. 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 Lives with , 3 cats, does the cat litter box. No other pets. Hobbies: fish. Discussed hot tub avoidance. No known TB exposure, no homeless, no mcfp, no ivdu, no healthcare work. Current vaccinations: [...] Resource Strain: Low Risk (06/15/2025) Received from [facility] Overall Financial Resource Strain (CARDIA) How hard is it for you to pay for the very basics like food, housing, medical care, and heating?: Not hard at all Food Insecurity: No Food Insecurity (06/15/2025) Received from [facility] Hunger Vital Sign Worried About Running Out of Food in the Last Year: Never true Ran Out of Food in the Last Year: Never true Transportation Needs: No Transportation Needs (06/15/2025) Received from [facility] PRAPARE - Transportation In the past 12 months, has lack of transportation kept you from medical appointments or from getting medications?: No In the past 12 months, has lack of transportation kept you from meetings, work, or from getting things needed for daily living?: No Physical Activity: Inactive (06/15/2025) Received from [facility] Exercise Vital Sign Days of Exercise per Week: 0 days Minutes of Exercise per Session: 0 min Stress: No Stress Concern Present (06/15/2025) Received from [facility] [place] [facility] - Occupational Stress Questionnaire Do you feel stress - tense, restless, nervous, or anxious, or unable to sleep at night because yourmind is troubled all the time - these days?: Only a little Social Connections: Socially Integrated (06/15/2025) Received from [facility] Social Connection and Isolation Panel [NHANES] Frequency of Communication with Friends and Family: More than three times a week Frequency of Social Gatherings with Friends and Family: More than three times a week Attends Jainism Services: More than 4 times per year Active Member of Clubs or Organizations: Yes Attends Club or Organization Meetings: Not on file Marital Status: Intimate Partner Violence: Not At Risk (06/15/2025) Received from [facility] Humiliation, Afraid, Rape, and Kick questionnaire Fear of Current or Ex-Partner: No Emotionally Abused: No Physically Abused: No Sexually Abused: No Housing Stability: Low Risk (06/15/2025) Received from [facility] Housing Stability Vital Sign Unable [...] antibody, IgG (09/10/2025 5:03 PM EDT) Pathologist [facility] Varicella IgG Positive( A) Negative S/CO 09/10/2025 11:49 PM EDT [facility] Comment:Result indicates the presence of detectable VZV IgG antibodies. A positive result is generally indicative of exposure to the pathogen or administration of specific immunoglobulins, but it is no indication of active infection or stage of disease. This test is not approved for determining vaccine-induced immunity to varicella zoster virus. VZV NUM 15.50(H) 0.00 - 0.99 S/CO 09/10/2025 11:49 PM EDT [facility] Serum 09/10/2025 5:03 PM EDT 09/10/2025 10:26 PM EDT Navi Sims MD LAB BLOOD ORDERABLES Final Resu lt Performing Organization Address City/[facility]/ZIP Co de Phone Number [facility] [address] * QuantiFERON TB2 Ag (09/10/2025 5:03 PM EDT) [facility] QuantiFERON TB2 Ag Value 0.09 09/12/2025 1:19 PM EDT [facility] Plasma 09/10/2025 5:03 PM EDT 09/10/2025 6:29 PM EDT Navi Sims MD LAB BLOOD ORDERABLES Final Resu lt [facility] [address] [facility]. [address] * QuantiFERON TB1 Ag (09/10/2025 5:03 PM EDT) [facility] QuantiFERON TB1 Ag Value 0.08 09/12/2025 1:19 PM EDT [facility] Plasma 09/10/2025 5:03 PM EDT 09/10/2025 6:29 PM EDT Navi Sims MD LAB BLOOD ORDERABLES Final Resu lt Performing Organization Address City/[facility]/ZIP Co de Phone Number [facility] [address] [facility]. [address] * QuantiFERON Nil (09/10/2025 5:03 PM EDT) [facility] QuantiFERON Nil 0.02 1:19 PM EDT [facility] Plasma 09/10/2025 5:03 PM EDT 09/10/2025 6:29 PM EDT Navi Sims MD LAB BLOOD ORDERABLES Final Resu lt Performing Organization Address City/[facility] Co de Phone Number [facility] [address] [facility]. [address] * QuantiFERON Mitogen (09/10/2025 5:03 PM EDT) [facility] QuantiFERON Interpretation Negative Negative 09/12/2025 1:19 PM EDT [facility] Comment:Negative result pilar cates M. tuberculosis infection is NOT likely. Negative results do not preclude tuberculosis infection (especially in immunosuppressed patients). Negative results have a TB antigen minus Nil value less than 0.35 IU/mL. In cases with high suspicion of disease, retesting or additional testing with medical evaluation may be useful. QuantiFERON Mitogen 8.77 09/12 1:19 PM EDT [facility] Plasma 09/10/2025 5:03 PM EDT 09/10/2025 6:29 PM EDT Narrative [facility] - 09/12/2025 1:19 PM EDT [...] ORDERABLES Final Resu lt Performing Organization Address City/[facility]/ZIP Co de Phone Number [facility] [address] [facility]. [address] * (ABNORMAL) Strongyloides Ab (09/10/2025 5:03 PM EDT) [facility] Strongyloides Ab Positive( A) Negative 09/17/2025 2:56 PM EST [facility] Serum 09/10/2025 5:03 PM EDT 09/17/2025 3:07 PM EST Narrative [facility] - 09/17/2025 3:07 PM EST PERFORMED AT: [address] [id number] ERGONOMIC SPECIALIST: Kevin Holguin MD PHONE: [phone] Navi Sims MD LAB BLOOD ORDERABLES Final Resu lt Performing Organization Address [facility] Co de Phone Number [facility] [address] [facility]. [address] * Toxoplasma gondii antibody, IgG (09/10/2025 5:03 PM EDT) Pathologist [facility] Toxoplasma Gondii IgG <3.0 0.0 - 7.1 IU/mL 09/12/2025 6:21 AM EDT [facility] Comment: Negative <7.2 Equivocal 7.2 - 8.7 Positive >8.7 Serum 09/10/2025 5:03 PM EDT 09/12/2025 7:06 AM EDT Narrative [facility] - 09/12/2025 7:06 AM EDT PERFORMED AT: [facility] [address] [id number] ERGONOMIC SPECIALIST: Mateo Miller, PhD PHONE: [phone] Navi Sims MD LAB BLOOD ORDERABLES Final Resu lt [facility] [address] [facility]. [address] * Syphilis Screening (Trepia) (09/10/2025 5:03 PM EDT) Treponema Pallidum Negative Negative 09/10/2025 11:55 PM EDT [facility] Comment: No serological evidence of infection with Treponema pallidum (incubating or early primary syphilis cannot be excluded). Serum 09/10/2025 5:03 PM EDT 09/10/2025 10:26 PM EDT Navi Sims MD LAB BLOOD ORDERABLES Final Resu lt [facility] [address] [facility]. [address] * (ABNORMAL) MMR(IgG) Panel (Measles, Mumps, Rubella) (09/10/2025 5:03 PM EDT) Mumps IgG Positive 09/10/2025 11:51 PM EDT [facility] MUMPS IGG NUM >300.00(H) 0.0 - 8.9 U/mL 09/10/2025 11:51 PM EDT [facility] Rubella IgG Scr Positive 09/10/2025 11:51 PM EDT [facility] RUB NUM 30.20(H) 0.0 - 0.8 INDEX 09/10/2025 11:51 PM EDT [facility] Rubeola Ab, IgG Positive 09/10/2025 11:50 PM EDT [facility] RUB IGG NUM >300.00(H) 0.00 - 13.40 U/mL 09/10/2025 11:50 PM EDT [facility] Serum 09/10/2025 5:03 PM EDT 09/10/2025 10:26 PM EDT Narrative [facility] - 09/10/2025 11:51 PM EDT Presence [...] MD LAB BLOOD ORDERABLES Final Resu lt [facility] [address] [facility]. [place] [id number], [facility] documented in this encounter Visit Diagnoses Diagnosis [...] - RTC prn documented in this encounter Care Teams Air Cargo Ground Crew Supervisor Relationship Specialty Start Date End Date System, Provider Not In PCP - General 09/10/25 documented as of this encounter
--- OUTSIDE RECORDS SUMMARY | 2025-09-10 15:35 | XMS_ITS | Encounter Summary ---
Author Organization [facility] Address [address] [place] [id number] Care Team Providers Care Political Science Research Assistant Name Role Phone System, Provider Not In [...] release of HIV test results or diagnoses. [id number] Reason for Visit * Auth/Cert (Routine) Specialty Diagnoses / Procedures Referred By Gianna reyes Referred To Contact Radiology [facility] [address] [place] [address] Phone: tel: Referral ID Status Reason Start Date Expiration Date Visits Re quested Visits Authorized [id number] 1 1 Encounter Details Date Type Department Care Team (Late st Contact Info) Description 09/10/2025 4:35 PM EDT Specimen [facility] [address] [place] [id number] Buddy Zimmerman MD [address] [place] [address] Alcoholic cirrhosis of liver with ascites (CMS-HCC); Pre-transplant evaluation for chronic liver disease Social [...] Procedure Name Priority Date/Time Associated Diagnosis Comments MMR(IGG) PANEL (MEASLES, MUMPS, RUBELLA) Routine 09/10/2025 5:03 PM EDT Pre-transplant evaluation for chronic liver disease TREPONEMA PALLIDUM AB WITH REFLEX Routine 09/10/2025 5:03 PM EDT Pre-transplant evaluation for chronic liver disease QUANTIFERON TB2 AG Routine 09/10/2025 5: 03 PM EDT Pre-transplant evaluation for chronic liver disease QUANTIFERON TB1 AG Routine 09/10/2025 5: 03 PM EDT Pre-transplant evaluation for chronic liver disease QUANTIFERON NIL Routine 09/10/2025 5:03 PM EDT Pre-transplant evaluation for chronic liver disease QUANTIFERON MITOGEN Routine 09/10/2025 5 :03 PM EDT Pre-transplant evaluation for chronic liver disease STRONGYLOIDES AB Routine 09/10/2025 5:03 PM EDT Pre-transplant evaluation for chronic liver disease HEPATIC FUNCTION PANEL Routine 5:03 PM EDT Alcoholic cirrhosis of liver with ascites (CMS-HCC) Pre-transplant evaluation for chronic liver disease AFP TUMOR MARKER Routine 09/10/2025 5:03 PM EDT Alcoholic cirrhosis of liver with ascites (CMS-HCC) Pre-transplant evaluation for chronic liver disease ABO/RH Routine 09/10/2025 5:03 PM EDT Alcoholic cirrhosis of liver with ascites (CMS-HCC) Pre-transplant evaluation for chronic liver disease TOXOPLASMA GONDII ANTIBODY, IGG Routine 09/10/2025 5:03 PM EDT Pre-transplant evaluation for chronic liver disease PROTIME-INR Routine 09/10/2025 5:03 PM EDT Alcoholic cirrhosis of liver with ascites (CMS-HCC) Pre-transplant evaluation for chronic liver disease CBC Routine 09/10/2025 5:03 PM EDT Alcoholic cirrhosis of liver with ascites (CMS-HCC) Pre-transplant evaluation for chronic liver disease VARICELLA ZOSTER ANTIBODY, IGG Routine 09/10/2025 5:03 PM EDT Pre-transplant evaluation for chronic liver disease TSH Routine 09/10/2025 5:03 PM EDT Alcoholic cirrhosis of liver with ascites (CMS-HCC) Pre-transplant evaluation for chronic liver disease HEMOGLOBIN A1C Routine 09/10/2025 5:03 PM EDT Alcoholic cirrhosis of liver with ascites (CMS-HCC) Pre-transplant evaluation for chronic liver disease LIPID PANEL Routine 09/10/2025 5:03 PM EDT Alcoholic cirrhosis of liver with ascites (CMS-HCC) Pre-transplant evaluation for chronic liver disease BASIC METABOLIC PANEL Routine 09/10/2025 5:03 PM EDT Alcoholic cirrhosis of liver with ascites (CMS-HCC) Pre-transplant evaluation for chronic liver disease documented in this encounter Results * (ABNORMAL) Varicella zoster antibody, IgG (09/10/2025 5:03 PM EDT) Varicella IgG Positive( A) Negative S/CO 09/10/2025 11:49 PM EDT [facility] Comment:Result indicates the presence of detectable VZV IgG antibodies. A positive result is generally indicative of exposure to the pathogen or administration of specific immunoglobulins, but it is no indication of active infection or stage of disease. This test is not approved for determining vaccine-induced immunity to varicella zoster virus. VZV NUM 15.50(H) 0.00 - 0.99 S/CO 09/10/2025 11:49 PM EDT [facility] Serum 09/10/2025 5:03 PM EDT 09/10/2025 10:26 PM EDT Navi Sims MD LAB BLOOD ORDERABLES Final Resu lt [facility] [address] [place] [address]. [address] * QuantiFERON TB2 Ag (09/10/2025 5:03 PM EDT) QuantiFERON TB2 Ag Value 0.09 09/12/2025 1:19 PM EDT [facility] Plasma 09/10/2025 5:03 PM EDT 09/10/2025 6:29 PM EDT Navi Sims MD LAB BLOOD ORDERABLES Final Resu lt [facility] [address] [facility]. [address] * QuantiFERON TB1 Ag (09/10/2025 5:03 PM EDT) QuantiFERON TB1 Ag Value 0.08 09/12/2025 1:19 PM EDT [facility] Plasma 09/10/2025 5:03 PM EDT 09/10/2025 6:29 PM EDT Navi Sims MD LAB BLOOD ORDERABLES Final Resu lt [facility] [address] [place] [address]. [address] * QuantiFERON Nil (09/10/2025 5:03 PM EDT) QuantiFERON Nil 0.02 1:19 PM EDT [facility] Plasma 09/10/2025 5:03 PM EDT 09/10/2025 6:29 PM EDT Navi Sims MD LAB BLOOD ORDERABLES Final Resu lt Performing Organization Address [facility]/ZIP Co de Phone Number [facility] [address] [facility]. [address] * QuantiFERON Mitogen (09/10/2025 5:03 PM EDT) Pathologist [facility] QuantiFERON Interpretation Negative Negative 09/12/2025 1:19 PM EDT [facility] Comment:Negative result pilar cates M. tuberculosis infection is NOT likely. Negative results do not preclude tuberculosis infection (especially in immunosuppressed patients). Negative results have a TB antigen minus Nil value less than 0.35 IU/mL. In cases with high suspicion of disease, retesting or additional testing with medical evaluation may be useful. QuantiFERON Mitogen 8.77 09/12 1:19 PM EDT [facility] Plasma 09/10/2025 5:03 PM EDT 09/10/2025 6:29 PM EDT Narrative [facility] - 09/12/2025 1:19 PM EDT [...] MD LAB BLOOD ORDERABLES Final Resu lt [facility] [address] [facility] [place] [address], [facility] * (ABNORMAL) Strongyloides Ab (09/10/2025 5:03 PM EDT) Pathologist [facility] Strongyloides Ab Positive( A) Negative 09/17/2025 2:56 PM EST [facility] Serum 09/10/2025 5:03 PM EDT 09/17/2025 3:07 PM EST Narrative [facility] - 09/17/2025 3:07 PM EST PERFORMED AT: [facility] [address] [id number] NURSING HOME ASSISTANT ADMINISTRATOR: Kevin Holguin MD PHONE: [phone] Navi Sims MD LAB BLOOD ORDERABLES Final Resu lt Performing Organization Address [facility] Co de Phone Number [facility] [address] [facility] * Toxoplasma gondii antibody, IgG (09/10/2025 5:03 PM EDT) Toxoplasma Gondii IgG <3.0 0.0 - 7.1 IU/mL 09/12/2025 6:21 AM EDT [facility] Comment: Negative <7.2 Equivocal 7.2 - 8.7 Positive >8.7 Serum 09/10/2025 5:03 PM EDT 09/12/2025 7:06 AM EDT Narrative [facility] - 09/12/2025 7:06 AM EDT PERFORMED AT: [facility] [address] [id number] NURSING HOME ASSISTANT ADMINISTRATOR: Mateo Miller, PhD PHONE: [phone] Navi Sims MD LAB BLOOD ORDERABLES Final Resu lt Performing Organization Address City/[facility]/ZIP Co de Phone Number [facility] [address] [facility] * Syphilis Screening (Trepia) (09/10/2025 5:03 PM EDT) Treponema Pallidum Negative Negative 09/10/2025 11:55 PM EDT [facility] Comment: No serological evidence of infection with Treponema pallidum (incubating or early primary syphilis cannot be excluded). Serum 09/10/2025 5:03 PM EDT 09/10/2025 10:26 PM EDT Navi Sims MD LAB BLOOD ORDERABLES Final Resu lt [facility] [address] [facility]. [address] * (ABNORMAL) MMR(IgG) Panel (Measles, Mumps, Rubella) (09/10/2025 5:03 PM EDT) Mumps IgG Positive 09/10/2025 11:51 PM EDT [facility] MUMPS IGG NUM >300.00(H) 0.0 - 8.9 U/mL 09/10/2025 11:51 PM EDT [facility] Rubella IgG Scr Positive 09/10/2025 11:51 PM EDT [facility] RUB NUM 30.20(H) 0.0 - 0.8 INDEX 09/10/2025 11:51 PM EDT [facility] Rubeola Ab, IgG Positive 09/10/2025 11:50 PM EDT [facility] RUB IGG NUM >300.00(H) 0.00 - 13.40 U/mL 09/10/2025 11:50 PM EDT [facility] Serum 09/10/2025 5:03 PM EDT 09/10/2025 10:26 PM EDT Narrative [facility] - 09/10/2025 11:51 PM EDT Presence of detectable measles virus IgG antibodies. A positive result generally indicates exposure to measles virus or previous vaccination. Presence of detectable mumps virus IgG antibodies. A positive result generally indicates past exposure to mumps virus or previous vaccination. Sample is considered positive for IgG antibodies to rubella virus. Navi Sims MD LAB BLOOD ORDERABLES Final Resu lt [facility] [address] [facility]. [address] * (ABNORMAL) Lipid Profile (09/10/2025 5:03 PM [...] - 149 mg/dL 09/10/2025 8:21 PM EDT [facility] HDL 26(L) 60 - 92 mg/dL 09/10/2025 8:21 PM EDT [facility] Comment: LIPID PROFILE INTERPRETATION CHOLESTEROL,TOTAL(mg/dL) DESIRABLE: [...] LDL Cholesterol 97 mg/dL 8:21 PM EDT [facility] Plasma 09/10/2025 5:03 PM EDT 09/10/2025 5:52 PM EDT Narrative [facility] - 09/10/2025 8:21 PM EDT Must the patient be fasting for this test?->No LDL cholesterol calculated using the Friedewald equation. us Buddy Zimmerman MD LAB BLOOD ORDERABLES Final Resul t [facility] [address] * ABO/Rh (09/10/2025 5:03 PM EDT) ABO Grouping A 09/10/2025 7:26 PM EDT [facility] Rh Type Positive 09/10/2025 7:26 PM EDT [facility] Blood 09/10/2025 5:03 PM EDT 09/10/2025 6:49 PM EDT Buddy Zimmerman MD BLOOD BANK TEST ORDERABLES Final Result [facility] [address] * AFP tumor marker (09/10/2025 5:03 PM EDT) Pathologist [facility] AFP-Tumor Marker 2.0 0.0 - 9.0 ng/mL 09/10/2025 8:52 PM EDT [facility] Serum 09/10/2025 5:03 PM EDT 09/10/2025 6:42 PM EDT Narrative [facility] - 09/10/2025 8:52 PM EDT The testing method for AFP is a chemiluminescent immunoassay manufactured by [employer] Concentrations of AFP obtained by different assay methods or kits may vary and cannot be used interchangeably. AFP results cannot be interpreted as absolute evidence of the presence or absence of malignant disease. Buddy Zimmerman MD LAB BLOOD ORDERABLES Final Resul t Performing Organization Address City/[facility] Co de Phone Number [facility] [address] * Hemoglobin A1c (09/10/2025 5:03 PM EDT) Pathologist [facility] Hemoglobin A1C 4.0 4.0 - 5.6 % 09/10/2025 11:22 PM EDT [facility] Comment: Hemoglobin A1c Interpretation Guidelines: [...] 5:03 PM EDT 09/10/2025 6:33 PM EDT Result Neto Zimmerman MD LAB BLOOD ORDERABLES Final Resul t Performing Organization Address City/[facility] Co de Phone Number [facility] [address] [facility] * TSH (Thyroid Stimulating Hormone) (09/10/2025 5:03 PM EDT) TSH 2.85 0.45 - 4.12 uIU/mL 09/11/2025 12:13 AM EDT [facility] Serum 09/10/2025 5:03 PM EDT 09/10/2025 6:42 PM EDT us Buddy Zimmerman MD LAB BLOOD ORDERABLES Final Resul t Performing Organization Address [facility] Co de Phone Number [facility] [address] [facility] * (ABNORMAL) Protime-INR (09/10/2025 5:03 PM EDT) Protime 24.2(H) 12.1 - 15.1 seconds 09/10/2025 7:00 PM EDT [facility] INR 2.0(H) 0.9 - 1.1 09/10/2025 7:00 PM EDT [facility] Comment: RECOMMENDED THERAPEUTIC RANGES USING INR : Stable oral anticoagulant therapy: 2.0 - 3.0 Mechanical prosthetic heart valve: 2.5 - 3.5 Recurrent acute myocardial infarction: 2.5 - 3.5 Plasma 09/10/2025 5:03 PM EDT 09/10/2025 6:42 PM EDT Result Neto Zimmerman MD LAB BLOOD ORDERABLES Final Resul t Performing Organization Address [facility] Co de Phone Number [facility] [address] [facility] * (ABNORMAL) Hepatic Function Panel (09/10/2025 5:03 PM EDT) Total Bilirubin 5.9(H) 0.0 - 1.5 mg/dL 09/10/2025 8:21 PM EDT [facility] Bilirubin, Direct 1.62(H) 0.00 - 0.40 mg/dL 09/10/2025 8:21 PM EDT [facility] AST 40(H) 13 - 39 U/L 09/10/2025 8:21 PM EDT [facility] ALT 29 7 - 52 U/L 09/10/2025 8:21 PM EDT [facility] Alkaline Phosphatase 136(H) 36 - 125 U/L 09/10/2025 8:21 PM EDT [facility] Total Protein 6.2(L) 6.4 - 8.9 g/dL 09/10/2025 8:21 PM EDT [facility] Albumin 2.1(L) 3.5 - 5.7 g/dL 09/10/2025 8:21 PM EDT [facility] Bilirubin, Indirect 4.28(H) 0.00 - 1.10 mg/dL 09/10/2025 8:21 PM EDT [facility] Plasma 09/10/2025 5:03 PM EDT 09/10/2025 5:52 PM EDT us Buddy Zimmerman MD LAB BLOOD ORDERABLES Final Resul t [facility] [address] * (ABNORMAL) Basic metabolic panel (09/10/2025 5:03 PM EDT) Sodium 142 133 - 146 mmol/L 09/10/2025 8:21 PM EDT [facility] Potassium 3.8 3.5 - 5.3 mmol/L 09/10/2025 8:21 PM EDT [facility] Chloride 110 98 - 110 mmol/L 09/10/2025 8:21 PM EDT [facility] CO2 27 21 - 33 mmol/L 09/10/2025 8:21 PM EDT [facility] Comment:High lactate dehydro genase concentrations in patient samples may cause falsely increased bicarbonate results. If markedly elevated LDH is observed or suspected, please assess results in conjunction with patient`s clinical presentation. In cases of discrepant results, consider evaluating CO2 in with a blood gas order. Anion Gap 5 3 - 16 mmol/L 09/10/2025 8:21 PM EDT [facility] BUN 10 7 - 25 mg/dL 09/10/2025 8:21 PM EDT [facility] Creatinine 0.90 0.60 - 1.30 mg/dL 09/10/2025 8:21 PM EDT [facility] Glucose 79 70 - 100 mg/dL 09/10/2025 8:21 PM EDT [facility] Calcium 7.9(L) 8.6 - 10.3 mg/dL 09/10/2025 8:21 PM EDT [facility] Osmolality, Calculated 292 278 - 305 mOsm/kg 09/10/2025 8:21 PM EDT [facility] EGFR >90 09/10/2025 8:21 PM EDT [facility] Comment: As of 2022, the [...] MD LAB BLOOD ORDERABLES Final Resul t [facility] [address] * (ABNORMAL) CBC (09/10/2025 5:03 PM EDT) WBC 4.2 3.8 - 10.8 10E3/uL 09/10/2025 6:57 PM EDT [facility] RBC 3.39(L) 4.20 - 5.80 10E6/uL 09/10/2025 6:57 PM EDT [facility] Hemoglobin 11.4(L) 13.2 - 17.1 g/dL 09/10/2025 6:57 PM EDT [facility] Hematocrit 33.9(L) 38.5 - 50.0 % 09/10/2025 6:57 PM EDT [facility] MCV 100.1(H) 80.0 - 100.0 fL 09/10/2025 6:57 PM EDT [facility] MCH 33.7(H) 27.0 - 33.0 pg 09/10/2025 6:57 PM EDT [facility] MCHC 33.7 32.0 - 36.0 g/dL 09/10/2025 6:57 PM EDT [facility] RDW 18.5(H) 11.0 - 15.0 % 09/10/2025 6:57 PM EDT [facility] Platelets 66(L) 140 - 400 10E3/uL 09/10/2025 6:57 PM EDT [facility] MPV 7.8 7.5 - 11.5 fL 09/10/2025 6:57 PM EDT [facility] Whole Blood 09/10/2025 5:03 PM EDT 09/10/2025 6:33 PM EDT us Buddy Zimmerman MD LAB BLOOD ORDERABLES Final Resul t [facility] [address] [facility]. [address] documented in this encounter Visit Diagnoses Diagnosis Alcoholic cirrhosis of liver with ascites (CMS-HCC) Pre-transplant evaluation for chronic liver disease documented in this encounter Additional Health Concerns Assessment Noted Time PHQ-9 Depression Total Score: 8 09/10/20 25 11:09 AM EDT documented as of this encounter Care Teams Political Science Research Assistant Relationship Specialty Start Date End Date System, Provider Not In PCP - General 09/10/25 documented as of this encounter
--- OUTSIDE RECORDS SUMMARY | 2025-09-10 15:35 | XMS_ITS | Encounter Summary ---
Author Organization [facility] Address [address] [place] [address] Care Team Providers Care Ground Source Heat Pump Technician Name Role Phone System, Provider Not [...] release of HIV test results or diagnoses. [id number] Reason for Visit * Auth/Cert (Routine) Specialty Diagnoses / Procedures Referred By Gianna reyes Referred To Contact Radiology [facility] [address] [place] [address] Phone: tel: Referral ID Status Reason Start Date Expiration Date Visits Re quested Visits Authorized [id number] 1 1 Encounter Details Date Type Department Care Team (Late st Contact Info) Description 09/10/2025 4:35 PM EDT Specimen [facility] Out[facility] Lab [address] [place] [id number] Buddy Zimmerman MD [address] [place] [address] Alcoholic cirrhosis of liver with [...] A) Negative S/CO 09/10/2025 11:49 PM EDT [facility] Comment:Result indicates the presence of detectable VZV IgG antibodies. A positive result is generally indicative of exposure to the pathogen or administration of specific immunoglobulins, but it is no indication of active infection or stage of disease. This test is not approved for determining vaccine-induced immunity to varicella zoster virus. VZV NUM 15.50(H) 0.00 - 0.99 S/CO 09/10/2025 11:49 PM EDT LAB Serum 09/10/2025 5:03 PM EDT 09/10/2025 10:26 PM EDT Navi Sims MD LAB BLOOD ORDERABLES Final Resu lt LAB [address] [facility]. [address] * QuantiFERON TB2 Ag (09/10/2025 5:03 PM EDT) QuantiFERON TB2 Ag Value 0.09 09/12/2025 1:19 PM EDT LAB Plasma 09/10/2025 5:03 PM EDT 09/10/2025 6:29 PM EDT Navi Sims MD LAB BLOOD ORDERABLES Final Resu lt LAB [address] [facility]. [address] * QuantiFERON TB1 Ag (09/10/2025 5:03 PM EDT) QuantiFERON TB1 Ag Value 0.08 09/12/2025 1:19 PM EDT LAB Plasma 09/10/2025 5:03 PM EDT 09/10/2025 6:29 PM EDT Navi Sims MD LAB BLOOD ORDERABLES Final Resu lt LAB [address] [facility]. [address] * QuantiFERON Nil (09/10/2025 5:03 PM EDT) QuantiFERON Nil 0.02 1:19 PM EDT LAB Plasma 09/10/2025 5:03 PM EDT 09/10/2025 6:29 PM EDT Navi Sims MD LAB BLOOD ORDERABLES Final Resu lt LAB [address] * QuantiFERON Mitogen (09/10/2025 5:03 PM EDT) QuantiFERON Interpretation Negative Negative 09/12/2025 1:19 PM EDT LAB Comment:Negative result pilar cates M. tuberculosis infection is NOT likely. Negative results do not preclude tuberculosis infection (especially in immunosuppressed patients). Negative results have a TB antigen minus Nil value less than 0.35 IU/mL. In cases with high suspicion of disease, retesting or additional testing with medical evaluation may be useful. QuantiFERON Mitogen 8.77 09/12 1:19 PM EDT LAB Plasma 09/10/2025 5:03 PM EDT 09/10/2025 6:29 PM EDT Narrative LAB - 09/12/2025 1:19 PM EDT The [...] MD LAB BLOOD ORDERABLES Final Resu lt LAB [address] * (ABNORMAL) Strongyloides Ab (09/10/2025 5:03 PM EDT) Strongyloides Ab Positive( A) Negative 09/17/2025 2:56 PM EST LAB Serum 09/10/2025 5:03 PM EDT 09/17/2025 3:07 PM EST Narrative LAB - 09/17/2025 3:07 PM EST PERFORMED AT: [facility] [id number] SOFTWARE APPLICATIONS ARCHITECT: Kevin Holguin MD PHONE: [phone] Navi Sims MD LAB BLOOD ORDERABLES Final Resu lt Performing Organization Address [facility] Co de Phone Number LAB [address] * Toxoplasma gondii antibody, IgG (09/10/2025 5:03 PM EDT) Toxoplasma Gondii IgG <3.0 0.0 - 7.1 IU/mL 09/12/2025 6:21 AM EDT LAB Comment: Negative <7.2 Equivocal 7.2 - 8.7 Positive >8.7 Serum 09/10/2025 5:03 PM EDT 09/12/2025 7:06 AM EDT Narrative LAB - 09/12/2025 7:06 AM EDT PERFORMED AT: [facility] [id number] SOFTWARE APPLICATIONS ARCHITECT: Mateo Miller PhD PHONE: [phone] Navi Sims MD LAB BLOOD ORDERABLES Final Resu lt Performing Organization Address City/[facility] Co de Phone Number LAB [address] * Syphilis Screening (Trepia) (09/10/2025 5:03 PM EDT) Treponema Pallidum Negative Negative 09/10/2025 11:55 PM EDT LAB Comment: No serological evidence of infection with Treponema pallidum (incubating or early primary syphilis cannot be excluded). Serum 09/10/2025 5:03 PM EDT 09/10/2025 10:26 PM EDT Navi Sims MD LAB BLOOD ORDERABLES Final Resu lt LAB [address] * (ABNORMAL) MMR(IgG) Panel (Measles, Mumps, Rubella) (09/10/2025 5:03 PM EDT) Mumps IgG Positive 09/10/2025 11:51 PM EDT LAB MUMPS IGG NUM >300.00(H) 0.0 - 8.9 U/mL 09/10/2025 11:51 PM EDT LAB Rubella IgG Scr Positive 09/10/2025 11:51 PM EDT LAB RUB NUM 30.20(H) 0.0 - 0.8 INDEX 09/10/2025 11:51 PM EDT LAB Rubeola Ab, IgG Positive 09/10/2025 11:50 PM EDT LAB RUB IGG NUM >300.00(H) 0.00 - 13.40 U/mL 09/10/2025 11:50 PM EDT LAB Serum 09/10/2025 5:03 PM EDT 09/10/2025 10:26 PM EDT Narrative LAB - 09/10/2025 11:51 PM EDT Presence [...] MD LAB BLOOD ORDERABLES Final Resu lt LAB [address] * (ABNORMAL) Lipid Profile (09/10/2025 5:03 PM EDT) Non-HDL Cholesterol, Calculated 109 0 - 129 mg/dL 09/10/2025 8:21 PM EDT [facility]ALTH LAB Comment: Desirable: < 130 mg/dL Above Desirable: 130-159 mg/dL Borderline High: 160-189 mg/dL High: 190-219 mg/dL Very High: > 219 mg/dL Cholesterol, Total 135 0 - 200 mg/dL 09/10/2025 8:21 PM EDT LAB Triglycerides 60 10 - 149 mg/dL 09/10/2025 8:21 PM EDT LAB HDL 26(L) 60 - 92 mg/dL 09/10/2025 8:21 PM EDT LAB Comment: LIPID PROFILE INTERPRETATION CHOLESTEROL,TOTAL(mg/dL) DESIRABLE: [...] LDL Cholesterol 97 mg/dL 8:21 PM EDT LAB Plasma 09/10/2025 5:03 PM EDT 09/10/2025 5:52 PM EDT Narrative LAB - 09/10/2025 8:21 PM EDT Must the patient be fasting for this test?->No LDL cholesterol calculated using the Friedewald equation. us Buddy Zimmerman MD LAB BLOOD ORDERABLES Final Resul t LAB [address] [place], [place] [address] * ABO/Rh (09/10/2025 5:03 PM EDT) ABO Grouping A 09/10/2025 7:26 PM EDT LAB Rh Type Positive 09/10/2025 7:26 PM EDT LAB Blood 09/10/2025 5:03 PM EDT 09/10/2025 6:49 PM EDT us Buddy Zimmerman MD BLOOD BANK TEST ORDERABLES Final Result Performing Organization Address City/[facility] Co de Phone Number [facility] [address] [facility]. [address] * AFP tumor marker (09/10/2025 5:03 PM EDT) Pathologist [facility] AFP-Tumor Marker 2.0 0.0 - 9.0 ng/mL 09/10/2025 8:52 PM EDT [facility] Serum 09/10/2025 5:03 PM EDT 09/10/2025 6:42 PM EDT Narrative LAB - 09/10/2025 8:52 PM EDT The testing method for AFP is a chemiluminescent immunoassay manufactured by [employer] Concentrations of AFP obtained by different assay methods or kits may vary and cannot be used interchangeably. AFP results cannot be interpreted as absolute evidence of the presence or absence of malignant disease. us Buddy Zimmerman MD LAB BLOOD ORDERABLES Final Resul t Performing Organization Address City/[facility] Co de Phone Number LAB [address] [facility]. [address] * Hemoglobin A1c (09/10/2025 5:03 PM EDT) Pathologist [facility] Hemoglobin A1C 4.0 4.0 - 5.6 % 09/10/2025 11:22 PM EDT LAB Comment: Hemoglobin A1c Interpretation Guidelines: Normal: [...] ORDERABLES Final Resul t Performing Organization Address City/[facility]/ZIP Co de Phone Number LAB [address] [facility]. [address] * TSH (Thyroid Stimulating Hormone) (09/10/2025 5:03 PM EDT) TSH 2.85 0.45 - 4.12 uIU/mL 09/11/2025 12:13 AM EDT LAB Serum 09/10/2025 5:03 PM EDT 09/10/2025 6:42 PM EDT Result Neto Zimmerman MD LAB BLOOD ORDERABLES Final Resul t Performing Organization Address [facility] de Phone Number LAB [address] [facility]. [address] * (ABNORMAL) Protime-INR (09/10/2025 5:03 PM EDT) Protime 24.2(H) 12.1 - 15.1 seconds 09/10/2025 7:00 PM EDT LAB INR 2.0(H) 0.9 - 1.1 09/10/2025 7:00 PM EDT LAB Comment: RECOMMENDED THERAPEUTIC RANGES USING INR : Stable oral anticoagulant therapy: 2.0 - 3.0 Mechanical prosthetic heart valve: 2.5 - 3.5 Recurrent acute myocardial infarction: 2.5 - 3.5 Plasma 09/10/2025 5:03 PM EDT 09/10/2025 6:42 PM EDT Result Neto Zimmerman MD LAB BLOOD ORDERABLES Final Resul t Performing Organization Address [facility] Co de Phone Number LAB [address] [facility]. [address] * (ABNORMAL) Hepatic Function Panel (09/10/2025 5:03 PM EDT) Total Bilirubin 5.9(H) 0.0 - 1.5 mg/dL 09/10/2025 8:21 PM EDT LAB Bilirubin, Direct 1.62(H) 0.00 - 0.40 mg/dL 09/10/2025 8:21 PM EDT LAB AST 40(H) 13 - 39 U/L 09/10/2025 8:21 PM EDT LAB ALT 29 7 - 52 U/L 09/10/2025 8:21 PM EDT LAB Alkaline Phosphatase 136(H) 36 - 125 U/L 09/10/2025 8:21 PM EDT LAB Total Protein 6.2(L) 6.4 - 8.9 g/dL 09/10/2025 8:21 PM EDT LAB Albumin 2.1(L) 3.5 - 5.7 g/dL 09/10/2025 8:21 PM EDT LAB Bilirubin, Indirect 4.28(H) 0.00 - 1.10 mg/dL 09/10/2025 8:21 PM EDT LAB Plasma 09/10/2025 5:03 PM EDT 09/10/2025 5:52 PM EDT us Buddy Zimmerman MD LAB BLOOD ORDERABLES Final Resul t LAB [address] [place] [id number], [facility] * (ABNORMAL) Basic metabolic panel (09/10/2025 5:03 PM EDT) Sodium 142 133 - 146 mmol/L 09/10/2025 8:21 PM EDT LAB Potassium 3.8 3.5 - 5.3 mmol/L 09/10/2025 8:21 PM EDT LAB Chloride 110 98 - 110 mmol/L 09/10/2025 8:21 PM EDT LAB CO2 27 21 - 33 mmol/L 09/10/2025 8:21 PM EDT LAB Comment:High lactate dehydro genase concentrations in patient samples may cause falsely increased bicarbonate results. If markedly elevated LDH is observed or suspected, please assess results in conjunction with patient`s clinical presentation. In cases of discrepant results, consider evaluating CO2 in with a blood gas order. Anion Gap 5 3 - 16 mmol/L 09/10/2025 8:21 PM EDT LAB BUN 10 7 - 25 mg/dL 09/10/2025 8:21 PM EDT LAB Creatinine 0.90 0.60 - 1.30 mg/dL 09/10/2025 8:21 PM EDT LAB Glucose 79 70 - 100 mg/dL 09/10/2025 8:21 PM EDT LAB Calcium 7.9(L) 8.6 - 10.3 mg/dL 09/10/2025 8:21 PM EDT LAB Osmolality, Calculated 292 278 - 305 mOsm/kg 09/10/2025 8:21 PM EDT LAB EGFR >90 09/10/2025 8:21 PM EDT LAB Comment: As of 2022, the estimated [...] MD LAB BLOOD ORDERABLES Final Resul t LAB [address] * (ABNORMAL) CBC (09/10/2025 5:03 PM EDT) WBC 4.2 3.8 - 10.8 10E3/uL 09/10/2025 6:57 PM EDT LAB RBC 3.39(L) 4.20 - 5.80 10E6/uL 09/10/2025 6:57 PM EDT LAB Hemoglobin 11.4(L) 13.2 - 17.1 g/dL 09/10/2025 6:57 PM EDT LAB Hematocrit 33.9(L) 38.5 - 50.0 % 09/10/2025 6:57 PM EDT LAB MCV 100.1(H) 80.0 - 100.0 fL 09/10/2025 6:57 PM EDT LAB MCH 33.7(H) 27.0 - 33.0 pg 09/10/2025 6:57 PM EDT LAB MCHC 33.7 32.0 - 36.0 g/dL 09/10/2025 6:57 PM EDT LAB RDW 18.5(H) 11.0 - 15.0 % 09/10/2025 6:57 PM EDT LAB Platelets 66(L) 140 - 400 10E3/uL 09/10/2025 6:57 PM EDT LAB MPV 7.8 7.5 - 11.5 fL 09/10/2025 6:57 PM EDT LAB Whole Blood 09/10/2025 5:03 PM EDT 09/10/2025 6:33 PM EDT Buddy Zimmerman MD LAB BLOOD ORDERABLES Final Resul t LAB [address] documented in this encounter Visit Diagnoses Diagnosis Alcoholic cirrhosis of liver with ascites (CMS-HCC) Pre-transplant evaluation for chronic liver disease documented in this encounter Care Teams Ground Source Heat Pump Technician Relationship Specialty Start Date End Date System, Provider Not In PCP - General 09/10/25 documented as of this encounter
--- OUTSIDE RECORDS SUMMARY | 2025-09-12 07:47 | XMS_ITS | Encounter Summary ---
Author Organization Healthcare Address [address] [place] [address] Care Team Providers Care Rustic Terrazzo Setter Name Role Phone Ruma Hernández FLIGHT SOFTWARE TEST ENGINEER Unavailable [phone] Chris Medel MD Primary Care Provider [phone] Reason for Referral * Imaging (Routine) - Closed Specialty Diagnoses / Procedures Referred By Gianna reyes Referred To Contact Radiology Diagnoses Pre-liver transplant, listed Procedures MR Abdomen w and wo IV Contrast Portia Maguire MD [address] [address] Phone: tel: fax: Referral ID Status Reason Start Date Expiration Date Visits Re quested Visits Authorized [id number] Closed 09/05/2025 03/07/2027 1 1 Reason for Visit * Imaging (Routine) - Closed Specialty Diagnoses / Procedures Referred By Gianna reyes Referred To Contact Radiology Diagnoses Pre-liver transplant, listed Procedures MR Abdomen w and wo IV Contrast Portia Maguire MD [address] [address] Phone: tel: fax: Referral ID Status Reason Start Date Expiration Date Visits Re quested Visits Authorized [id number] Closed 09/05/2025 03/07/2027 1 1 Encounter Details Date Type Department Care Team (Latest Contact Info) Description 09/12/2025 8:47 AM EDT - 09/12/2025 11:59 PM EDT Hospital Encounter [facility] [address] [place] [address] Pre-liver transplant, listed Discharge Disposition: [...] you attend [facility] or muslim services? More than 4 times [...] and heating? Not hard at all 06/15/2025 [facility] of Occupat ional Health - Occupational Stress [...] any time in the past 12 m [facility], were you homeless or [...] drink first t luisa in the morning (EYE-MACHINE HEEL SPRAYER) to steady your nerves or to get rid of a hangover? 0 06/14/2025 CAGE Questionnaire Score 0 025 Utilities Answer Date Recorded In the past 12 months has th e [employer], gas, oil, or water company threatened to [...] 11 09/13/2024 ergocalciferol (Vitamin D-2) 1.25 MG (67039 UT) capsule Take 1 capsule by mouth [...] must be assessed by a doctor. Call [phone] if you are alone and your reaction is more than mild sneezing or itching. If you have a mild reaction, call to speak with a Radiologist, explain that you havehad a contrast reaction, as this needs to be added to your medical record. documented in this encounter Plan of Treatment Upcoming Encounters Date Type Department Care Team (Late st Contact Info) Description 10/03/2025 12:45 PM EST Office Visit Medical Office Building Urology [address] [facility], [address] [place] [address] Suhail Brock MD [address] [place] [address] 10/18/2025 4:20 PM EST Office Visit [facility] [address] [facility], [address] [place] [address] Moustapha Katz MD [address] [facility] [address] [place] [address] 12/12/2025 8:30 AM EST Clinical Support [facility] [place] [address] [facility] [address] [place] [address] 12/12/2025 10:00 AM EST Office Visit [facility] [place] [address] [place] [address] Portia Maguire MD [address] [place] [address] documented as of this encounter Procedures Procedure [...] are consistent with and integrated into the [place] Association for the Study of Liver Diseases [...] using the following sequences: coronal single shot [id number] fast spin echo, axial T2 weighted sequences [...] are consistent with and integrated into the [place] Associationfor the Study of Liver Diseases (AASLD) [...] documented as of this encounter Care Teams Rustic Terrazzo Setter Relationship Specialty Start Date End Date Chris Medel MD [address] [place] [address] PCP - General 03/14/25 Ruma Hernández APRN [address] [facility] [address] [place] [address] Referring Physician Gastroenterology 07/30/23 documented as of this encounter
--- OUTSIDE RECORDS SUMMARY | 2025-09-12 07:47 | XMS_ITS | Encounter Summary ---
Author Organization Healthcare Address [address] [place] [address] Care Team Providers Care Product Development Technician Name Role Phone Ruma Hernández DIGITAL X RAY SERVICE ENGINEER Unavailable [phone] Chris Medel MD Primary Care Provider [phone] Reason for Referral * Imaging (Routine) - Closed Specialty Diagnoses / Procedures Referred By Gianna reyes Referred To Contact Radiology Diagnoses Pre-liver transplant, listed Procedures MR Abdomen w and wo IV Contrast Portia Maguire MD [address] [address] Phone: tel: fax: Referral ID Status Reason Start Date Expiration Date Visits Re quested Visits Authorized [id number] Closed 09/05/2025 03/07/2027 1 1 Reason for Visit * Imaging (Routine) - Closed Specialty Diagnoses / Procedures Referred By Gianna reyes Referred To Contact Radiology Diagnoses Pre-liver transplant, listed Procedures MR Abdomen w and wo IV Contrast Portia Maguire MD [address] [address] Phone: tel: fax: Referral ID Status Reason Start Date Expiration Date Visits Re quested Visits Authorized [id number] Closed 09/05/2025 03/07/2027 1 1 Encounter Details Date Type Department Care Team (Latest Contact Info) Description 09/12/2025 8:47 AM EDT - 09/12/2025 11:59 PM EDT Hospital Encounter [facility] Radiology [address] [place] [address] Pre-liver transplant, listed Discharge Disposition: [...] often do you attend [facility] or restorationist services? More than 4 times per year [...] week 06/15/2025 How often do you attend [facility] or restorationist services? More than 4 times per year [...] and heating? Not hard at all 06/15/[address] [facility] [place] of Occupat ional Health - Occupational Stress [...] drink first t luisa in the morning (EYE-EMT/DISPATCHER) to steady your nerves or to get rid of a hangover? 0 06/14/2025 CAGE Questionnaire Score 0 025 Utilities Answer Date Recorded In the past 12 months has th e [employer], gas, oil, or water company threatened [...] 11 09/13/2024 ergocalciferol (Vitamin D-2) 1.25 MG (22466 UT) capsule Take 1 capsule by mouth [...] must be assessed by a doctor. Call [phone] if you are alone and your reaction [...] [address] [facility], [address] [place] [address] Suhail Brock MD [address] [place] [address] 10/18/2025 4:20 PM EST Office Visit [facility] [address] [facility], [address] [place] [address] Moustapha Katz MD [address] [facility] [address] [place] [address] 12/12/2025 8:30 AM EST Clinical Support [facility] [place] [address] [facility] [address] [place] [address] 12/12/2025 10:00 AM EST Office Visit [facility] [place] [address] [place] [address] Portia Maguire MD [address] [place] [address] documented as of this encounter Procedures Procedure [...] are consistent with and integrated into the [place] Association for the Study of Liver Diseases [...] using the following sequences: coronal single shot [id number] fast spin echo, axial T2 weighted sequences [...] are consistent with and integrated into the [place] Associationfor the Study of Liver Diseases (AASLD) [...] documented as of this encounter Care Teams Product Development Technician Relationship Specialty Start Date End Date Chris Medel MD [address] [place] [address] PCP - General 03/14/25 Ruma Hernández APRN [address] [facility] [address] [place] [address] Referring Physician Gastroenterology 07/30/23 documented as of this encounter
--- OUTSIDE RECORDS SUMMARY | 2025-09-12 09:00 | XMS_ITS | Encounter Summary ---
Author Organization Healthcare Address [address] [place] [address] Care Team Providers Care Superintendent Meters Name Role Phone Ruma Hernández ALTERATIONS SUPERVISOR Unavailable [phone] Chris Medel MD Primary Care Provider [phone] Encounter Details Date Type Department Care Team (Latest Contact Info) Description 09/12/2025 10:00 AM EDT Office Visit [facility] [address] [place] [address] Portia Maguire MD [address] [place] [address] Pre-liver transplant, listed (Primary Dx); [...] 02/19/2025 How often do you attend [facility] or congregation services? More than 4 times per year 02/19/2025 Do you belong to any clubs o r organizations such as catholic groups, [employer], [employer] or athle[employer]emo[employer] groups, or school groups? Yes 02/19/2025 How [...] 06/15/2025 How often do you attend [facility] or congregation services? More than 4 times per year 06/15/2025 Do you belong to any clubs o r organizations such as catholic groups, [employer], [employer] or athleHemoBioTech,Inc groups, or school groups? Yes 06/15/2025 Attends [...] and heating? Not hard at all 06/15/2025 [facility] of Occupat ional Health - Occupational Stress [...] drink first t luisa in the morning (EYE-CONTENT PUBLISHER) to steady your nerves or to get rid of a hangover? 0 06/14/2025 CAGE Questionnaire Score 0 025 Utilities Answer Date Recorded In the past 12 months has th [employer], gas, oil, or water company threatened to [...] Upcoming Encounters Date Type Department Care Team ([facility] st Contact Info) Description 10/03/2025 12:45 PM EST Office Visit Medical Office Building Urology [address], [address] [place] [address] Suhail Brock MD [address] [place] [address] 10/18/2025 4:20 PM EST Office Visit [facility] [address], [address] [place] [address] Moustapha Katz MD [address] [place] [address] 12/12/2025 8:30 AM EST Clinical Support [facility] [place] [address] [place] [address] 12/12/2025 10:00 AM EST Office Visit [facility] [address] [place] [address] Portia Maguire MD [address] [place] [address] documented as of this encounter [...] documented as of this encounter Care Teams Superintendent Meters Relationship Specialty Start Date End Date Chris Medel MD [address] [place] [address] PCP - General 03/14/25 Ruma Hernández APRN [address] [place] [address] Referring Physician Gastroenterology 07/30/23 documented as of this encounter
--- OUTSIDE RECORDS SUMMARY | 2025-09-12 09:00 | XMS_ITS | Encounter Summary ---
Author Organization Healthcare Address [address] [place] [address] Care Team Providers Care Press Tender Smoke Signal Name Role Phone Ruma Hernández FUR TAILOR Unavailable [phone] Chris Medel MD Primary Care Provider [phone] Encounter Details Date Type Department Care Team (Latest Contact Info) Description 09/12/2025 10:00 AM EDT Office Visit [facility] [address] [place] [address] Portia Maguire MD [address] [place] [address] Pre-liver transplant, listed (Primary Dx); [...] often do you attend [facility] or denominational services? More than 4 times per year 02/19/2025 Do you belong to any clubs o r organizations such as zoroastrianism groups, Chugu[employer], [employer] or athleTrustlook groups, or school groups? Yes 02/19/2025 How [...] often do you attend [facility] or denominational services? More than 4 times per year 06/15/2025 Do you belong to any clubs o r organizations such as zoroastrianism groups, Chugu[employer]angs, [employer] or athleTrustlook groups, or school groups? Yes 06/15/2025 Attends [...] at all 06/15/2025 [facility] [place] of Occupat ional Health - Occupational Stress [...] drink first t luisa in the morning (EYE-DOCUMENT EXAMINER) to steady your nerves or to get rid of a hangover? 0 06/14/2025 CAGE Questionnaire Score 0 025 Utilities Answer Date Recorded In the past 12 months has th [employer], gas, oil, or water company threatened to [...] Upcoming Encounters Date Type Department Care Team ([facility] st Contact Info) Description 10/03/2025 12:45 PM EST Office Visit Medical Office Building Urology [address], [address] [place] [address] Suhail Brock MD [address] [facility] [address] [place] [address] 10/18/2025 4:20 PM EST Office Visit [facility] [address] [facility], [address] [place] [address] Moustapha Katz MD [address] [place] [address] 12/12/2025 8:30 AM EST Clinical Support [facility] Transplant [place] [address] [facility] [address] [place] [address] 12/12/2025 10:00 AM EST Office Visit [facility] [address] [facility] [address] [place] [address] Portia Maguire MD [address] [facility] [address] [place] [address] documented as of this encounter [...] documented as of this encounter Care Teams Press Tender Smoke Signal Relationship Specialty Start Date End Date Chris Medel MD [address] [place] [address] PCP - General 03/14/25 Ruma Hernández APRN [address] [place] [address] Referring Physician Gastroenterology 07/30/23 documented as of this encounter
[2025-09-18] VITALS (10 sets, daily range): BP systolic 102–142; BP diastolic 55–82; PULSE 82–92; RESP 16–18; TEMP 36.8–36.9; O2SAT 96–100; BMI 32.2; BMI 33.0
--- NOTE | 2025-09-18 18:34 | CT_ITS ---
PROCEDURE INFORMATION: Exam: CT Abdomen And Pelvis With Contrast Exam date and time: 09/18/2025 7:13 PM Age: 65 years old Clinical indication: Other: Abd pain, nausea, HX of liver cirrhosis TECHNIQUE: Imaging protocol: Computed tomography of the abdomen and pelvis with contrast. Radiation optimization: All CT scans at this facility use at least one of these dose optimization techniques: automated exposure control; mA and/or kV adjustment per patient size (includes targeted exams where dose is matched to clinical indication); or iterative reconstruction. Contrast material: ISOVUE; Contrast volume: 75 ml; Contrast route: IV; COMPARISON: CT ABDOMEN PELVIS WO/W CON 12/30/2023 9:37 AM FINDINGS: Lungs: Small left basilar pleural effusion are present. Compressive atelectasis of the left lung base. Liver: Nodular contours of the liver compatible with cirrhosis. Gallbladder and biliary ducts: There are surgical clips within the gallbladder fossa. Multiple dependently layering hyperattenuating structures are noted within the gallbladder fossa without wall thickening, or pericholecystic fluid. Pancreas: Normal. No ductal dilation. Spleen: Normal. No splenomegaly. Adrenal glands: Normal. No mass. Kidneys and ureters: Nonobstructive left nephrolithiasis define by multiple left renal calcific densities the largest measuring up to 20 mm within the renal pelvis. Stomach and bowel: Moderate thickening and edema of the gastric antrum and duodenal bulb compatible with gastritis. Moderate to severe edema of the left upper quadrant small bowel and distal duodenum may represent infectious or inflammatory enteritis, less likely ischemia given opacification of the mesenteric vessels. Appendix: No evidence of appendicitis. Intraperitoneal space: Moderate volume ascites surrounding the liver and spleen and extends to the pelvis. Vasculature: Paraesophageal and splenic varices compatible with portal hypertension. Mild calcific atherosclerotic disease is scattered throughout the abdominal aorta without aneurysmal dilatation. Lymph nodes: Unremarkable. No enlarged lymph nodes. Urinary bladder: Bladder is decompressed limiting its evaluation. Reproductive: Left hydrocele incompletely visualized. Bones/joints: Unremarkable. No acute fracture. Soft tissues: Normal. IMPRESSION: 1. Small left basilar pleural effusion with compressive atelectasis. 2. Nodular contours of the liver compatible with cirrhosis. 3. Paraesophageal and splenic varices compatible with portal hypertension. 4. Moderate thickening and edema of the gastric antrum and duodenal bulb compatible with gastritis. 5. Moderate to severe edema of the left upper quadrant small bowel and distal duodenum may represent infectious or inflammatory enteritis, less likely ischemia given opacification of the mesenteric vessels. 6. Cholelithiasis without CT evidence of cholecystitis.
--- OUTSIDE RECORDS SUMMARY | 2025-09-18 18:37 | XMS_ITS | Encounter Summary ---
Author Organization Healthcare Address [address] [place] [address] Care Team Providers Care Security Compliance Engineer Name Role Phone Ruma Hernández WIND PROJECT MANAGER Unavailable [phone] Chris Medel MD Primary Care Provider [phone] Encounter Details Date Type Department Care Team (Late st Contact Info) Description 06/13/2025 Telephone [facility] [address] [place] [address] Zeferino Trejo, PharmD Social History [...] do you attend [facility] or sabianism services? More than 4 times [...] all 06/15/2025 [facility]at [facility] - Occupational Stress Questionnaire Answer Date [...] drink first t luisa in the morning (EYE-MIG WELDER) to steady your nerves or to get rid of a hangover? 0 06/14/2025 CAGE Questionnaire Score 0 025 Utilities Answer Date Recorded In the past 12 months has th e [employer], gas, oil, or water [employer] threatened to shut off services in your [...] Risk Indicated 06/14/2025 9:23 PM EDT Chapito Jarrett, RN * Question Answer Date of Assessment Author 1. Wish to be (Past 1 Month) No 025 9:23 PM EDT Chapito Jarrett, RN 2. Non-Specific Active Suici alisson Thoughts (Past 1 Month) No 06/14/2025 9:23 PM EDT Charles Jarrett, RN 6. Suicidal Behavior (Lifetime) No 9:23 PM EDT Chapito Jarrett RN documented as of this encounter Miscellaneous [...] Medical Office Building Urology [address], [address] [place] [address] Suhail Brock MD [address] [place] [address] 10/18/2025 4:20 PM EST [facility] [address], [address] [place] [address] Moustapha Katz MD [address] [place] [address] 12/12/2025 8:30 AM EST Clinical Support [facility] [address] [facility] [address] [place] [address] 12/12/2025 10:00 AM EST Office Visit [facility] [place] [address] [facility] [address] [place] [address] Portia Maguire MD [address] [facility] [address] [place] [address] documented as of this encounter [...] as of this encounter Care Teams Security Compliance Engineer Relationship Specialty Start Date End Date Chris Medel MD [address] [place] [address] PCP - General 03/14/25 Ruma Hernández APRN [address] [facility] [address] [place] [address] Referring Physician Gastroenterology 07/30/23 documented as of this encounter
--- OUTSIDE RECORDS SUMMARY | 2025-09-18 18:37 | XMS_ITS | Encounter Summary ---
[facility] [address] [place] [address] Care Team Providers Care Youth Director Name Role Phone KaronUrban Hosea CAMARA Primary Care Provider [phone] Encounter Details Date Type Department Care Team (Late st Contact Info) Description 10/14/2023 Telephone [facility] GASTRO[facility] [address] [facility] [address] [place] [address] Ruma Hernández, BULK STATION OPERATOR [address] [facility] [address] [place], [place] [id number] Social History Tobacco Use Types Packs/Day Years [...] filedocumented in this encounter Care Teams Youth Director Relationship Specialty Start Date End Date Urban Brantley DO [address] [place] [address] PCP - General Internal Medicine 03/22/23 documented as of this encounter
--- OUTSIDE RECORDS SUMMARY | 2025-09-18 18:37 | XMS_ITS | Encounter Summary ---
Author Organization Healthcare Address [address] [place] [address] Care Team Providers Care Geodetic Computator Name Role Phone Ruma Hernández PLANT CONTROL AIDE Unavailable [phone] Chris Medel MD Primary Care Provider [phone] Encounter Details Date Type Department Care Team (Late st Contact Info) Description 08/01/2025 Results Follow-Up [facility] [address] [place] [address] Meaghan Le, RN [facility] LIVER [id number] [address] [place] [address] Social History Tobacco Use Types [...] do you attend [facility] or shinto services? More than 4 times per year [...] How often do you attend chur or shinto services? More than 4 times per year [...] Health [facility] of Occupat ional [facility] - [...] any time in the past 12 m [facility], were you homeless or [...] drink first t luisa in the morning (EYE-SUPPORT SERVICES MANAGER) to steady your nerves or to get rid of a hangover? 0 06/14/2025 CAGE Questionnaire Score 0 025 Utilities Answer Date Recorded In the past 12 months has e electric, gas, oil, or water [employer] threatened to shut off services in your [...] [address] [facility], [address] [place] [address] Suhail Brock MD [address] [place] [address] 10/18/2025 4:20 PM EST Office Visit [facility] [place] [facility] [address] [facility], [address] [place] [address] Moustapha Katz MD [address] [facility] [address] [place] [address] 12/12/2025 8:30 AM EST Clinical Support [facility] Transplant [place] [address] [facility] [address] [place] [address] 12/12/2025 10:00 AM EST Office [facility] [address] [facility] [address] [place] [address] Portia Maguire MD [address] [facility] [address] [place] [address] documented as of this encounter [...] documented as of this encounter Care Teams Geodetic Computator Relationship Specialty Start Date End Date Chris Medel MD [address] [place] [address] PCP - General 03/14/25 Ruma Hernández APRN [address] [facility] [address] [place] [address] Referring Physician Gastroenterology 07/30/23 documented as of this encounter
--- OUTSIDE RECORDS SUMMARY | 2025-09-18 18:37 | XMS_ITS | Encounter Summary ---
Author Organization Healthcare Address [address] [place] [address] Care Team Providers Care Public Safety Telecommunicator Name Role Phone Ruma Hernández INSTRUCTOR WATCH ASSEMBLY Unavailable [phone] Chris Medel MD Primary Care Provider [phone] Encounter Details Date Type Department Care Team (Late st Contact Info) Description 07/05/2025 Results Follow-Up [facility] [address] [place] [address] Meaghan Le, RN [id number] [address] [place] [address] Social History Tobacco Use Types [...] week 02/19/2025 How often do you attend [facility] or shinto services? More than 4 [...] heating? Not hard at all 06/15/2025 [facility] [...] drink first t luisa in the morning (EYE-BUILDING STONECUTTER) to steady your nerves or to get rid of a hangover? 0 06/14/2025 CAGE Questionnaire Score 0 025 Utilities Answer Date Recorded In the past 12 months has [employer], gas, oil, or water [employer] threatened to shut off services in your [...] Upcoming Encounters Date Type Department Care Team ([facility] st Contact Info) Description 10/03/2025 12:45 PM EST Office Visit Medical Office Building Urology [address], [address] [place] [address] Suhail Brock MD [address] [facility] [address] [place] [address] 10/18/2025 4:20 PM EST Office Visit [facility] [address], [address] [place] [address] Moustapha Katz MD [address] [facility] [address] [place] [address] 12/12/2025 8:30 AM EST Clinical Support [facility] [address] [place] [address] 12/12/2025 10:00 AM EST Office Visit [facility] [address] [place] [address] Portia Maguire MD [address] [place] [address] documented as of this encounter Visit Diagnoses [...] as of this encounter Care Teams Public Safety Telecommunicator Relationship Specialty Start Date End Date Chris Medel MD [address] [place] [address] PCP - General 03/14/25 Ruma Hernández APRN [address] [address] Referring Physician Gastroenterology 07/30/23 documented as of this encounter
--- OUTSIDE RECORDS SUMMARY | 2025-09-18 18:37 | XMS_ITS | Encounter Summary ---
[facility] Address [address] [place] [address] Care Team Providers Care Lecturer In Computer Science Name Role Phone KaronUrban Hosea CAMARA Primary Care Provider [phone] Encounter Details Date Type Department Care Team (Late st Contact Info) Description 10/14/2023 Telephone [facility] GA[facility] [address] [facility] [address] [place] [address] Ruma Hernández, CARE MANAGEMENT ASSOCIATE [address] [facility] [address] [place], [place] [id number] Social History Tobacco Use Types Packs/Day Years [...] on filedocumented in this encounter Care Teams Lecturer In Computer Science Relationship Specialty Start Date End Date Urban Brantley DO [address] [place] [address] PCP - General Internal Medicine 03/22/23 documented as of this encounter
--- OUTSIDE RECORDS SUMMARY | 2025-09-18 18:37 | XMS_ITS | Clinical Summary ---
Author Organization [facility] Address [address] [place] [address] Care Team Providers Care Authors Motivational Name Role Phone System, Provider Not In [...] therelease of HIV test results or diagnoses. [id number] Allergies Active Allergy Reactions Criticality Noted Date Comments Lisinopril Other (See Comments) Low 09/15/2021 Medications XIFAXAN 550 mg Tab tablet Take 1 tablet (550 mg total) by mouth 2 times a day. 5 Active ergocalciferol (ERGOCALCIFEROL ) 1,250 mcg (50,000 unit) capsule Take 1 capsule (50,000 Units total) by mouth once a week. 5 Active furosemide (LASIX) 20 MG tablet Take 2 tablets (40 mg total) by mouth daily. 4 03/14/20 26 Active omeprazole (PRILOSEC) 20 MG capsule Take 2 capsules (40 mg total) by mouth daily. 5 Active spironolactone (ALDACTONE) 50 MG tablet Take 3 tablets (150 mg total) by mouth daily. 4 12/22/19 26 Active calcitRIOL (ROCALTROL) 0.25 MCG capsule Take 1 capsule (0.25 mcg total) by mouth. Take 1 capsule by mouth 5 times a week. Once daily Wednesday through Wednesday 5 Active ivermectin (STROMECTOL) 3 mg Tab Take 7 tablets (21 mg total) by mouth daily for 2 doses. 14 tablet 5 09/20/20 25 Active carvediloL (COREG) 3.125 MG tablet Take 1 tablet (3.125 mg total) by mouth 2 times a day. 3 09/13/20 25 ivermectin (STROMECTOL) 3 mg Tab Take 7 tablets (21 mg total) by mouth daily for 2 doses. 14 tablet 5 09/17/20 25 Discontinue d(Refill / Reorder) Active Problems Problem Noted Date Diagnosed Date Encounter for pre-transplant evaluation for liver transplant 09/10/2025 Assessment & Plan (09/10/2025 5:13 PM EDT): - HIV, HCV negative - CMV IgG [...] transplant from ID perspective - RTC prn Alcoholic cirrhosis 09/05/2025 Ascites 09/05/2025 Hepatic encephalopathy 09/05/2025 Esophageal varices 09/05/2025 Pre-transplant evaluation for chronic liver dise ase 09/05/2025 Encounters Date Type Department Care Team Description 09/18/2025 Pharmacy Services [facility] [address] [place], [place] [phone] Delaney Bahena, PATYT 09/17/2025 Refill [facility] [address] [facility] [address] [place] [phone] Johnny Dubois, SILVIO 09/17/2025 Telephone [facility] at [facility] [address] [facility] [address] [place] [phone] Navi Sims MD 09/13/2025 Chart Note [facility] Liver Transplant at [address] [phone] Chapito Alcantar, RN Multi-disciplinary Hepatobiliary Case Conference Review: 09/11/2025 Telephone [facility] Liver Transplant at [address] [phone] Chapito Alcantar, SILVIO 09/11/2025 Chart Note [facility] Kidney Transplant at [address] [phone] Ailin Wells Faxed Clinical for Listing/Txp Auth 09/11/2025 Telephone [facility] Liver Transplant at [address] [phone] Chapito Alcantar, SILVIO 09/10/2025 4:35 PM EDT [facility] [address] [place] [phone] Buddy Zimmerman MD Alcoholic cirrhosis of liver with ascites (CMS-HCC); Pre-transplant evaluation for chronic liver disease 09/10/2025 2:00 PM EDT Office Visit [facility] Liver Transplant at [address] [phone] Unknown, Attending Provider Navi Sims MD Pre-transplant evaluation for chronic liver disease (Primary Dx); Encounter for pre-transplant evaluation for liver transplant 09/10/2025 1:30 PM EDT Office Visit [facility] Liver Transplant at [address] [phone] Lane Troy MD Alcoholic cirrhosis of liver with ascites (CMS-HCC) (Primary Dx); Pre-transplant evaluation for chronic liver disease 09/10/2025 1:00 PM EDT Office Visit [facility] Liver Transplant at [address] [place] [address] Buddy Zimmerman MD Pre-transplant evaluation for chronic liver disease (Primary Dx); Alcoholic cirrhosis of liver with ascites (CMS-HCC) 09/10/2025 12:00 PM EDT Office Visit [facility] Anesthesia Transplant at [address] [phone] Unknown, Attending Provider Stefan Gonzalez MD Pre-transplant evaluation for chronic liver disease (Primary Dx) 09/10/2025 10:03 AM EDT - 09/10/2025 11:59 PM EDT Hospital Encounter [facility] [address] [place] [address] Nigel Reaves MD Pre-transplant evaluation for chronic liver disease Discharge Disposition: Home or Self Care WITHOUT Home Care Services 09/10/2025 Social Work [facility] Liver Transplant at [address] [phone] Michelle Ho, WOOL HAT FINISHER, SOCIAL SCIENCE ANALYST 09/10/2025 Nutrition [facility] Kidney Transplant at [address] [phone] Oskar Arango, RD 09/10/2025 Chart Note [facility] Liver Transplant at [address] [phone] Chapito Alcantar, SILVIO Alcoholic cirrhosis of liver with ascites (CMS-HCC) (Primary Dx); Pre-transplant evaluation for chronic liver disease 09/08/2025 8:34 PM EDT - 09/08/2025 11:59 PM EDT Hospital Encounter [facility] Radiology [address] [place] [address] System, Provider Not In Discharge Disposition: Home or Self Care WITHOUT Home Care Services 09/08/2025 8:34 PM EDT - 09/08/2025 11:59 PM EDT Hospital Encounter [facility] Radiology [address] [place] [address] System, Provider Not In Discharge Disposition: Home or Self Care WITHOUT Home Care Services 09/08/2025 8:31 PM EDT - 09/08/2025 8:33 PM EDT Hospital Encounter [facility]iology [address] [place] [address] System, Provider Not In Discharge Disposition: Home or Self Care WITHOUT Home Care Services 09/08/2025 8:31 PM EDT - 09/08/2025 8:33 PM EDT Hospital Encounter [facility] [address] [place] [address] System, Provider Not In Discharge Disposition: Home or Self Care WITHOUT Home Care Services 09/05/2025 Telephone [facility] Liver Transplant at [address] [phone] Chapito Alcantar, SILVIO 09/05/2025 Telephone [facility] Liver Transplant at [address] [phone] Cori Dover MA 09/05/2025 Abstract [facility] Liver Transplant at [address] [phone] Chapito Alcantar, RN Alcoholic cirrhosis of liver with ascites (CMS-HCC) (Primary Dx); Ascites due to alcoholic cirrhosis (CMS-HCC); Hepatic encephalopathy (CMS-HCC); Esophageal varices without bleeding, unspecified esophageal varices type (CMS-HCC); Pre-transplant evaluation for chronic liver disease 08/13/2025 Telephone [facility] Liver Transplant at [address] [phone] Cori Dover MA 08/13/2025 Telephone [facility] Liver Transplant at [address] [place] [address] Cori Dover MA 08/13/2025 Orders Only [facility] Liver Transplant at [address] [phone] Chapito Alcantar RN Pre-transplant evaluation for chronic liver disease (Primary Dx) 08/13/2025 Chart Note [facility] Kidney Transplant at [address] [phone] Ailin Wells Patient is financially cleared for liver transplant evaluation 08/02/2025 Chart Note [facility] Liver Transplant at [address] [phone] Cori Dover MA Liver transplant referral entered. 08/01/2025 Chart Note [facility] Liver Transplant at [address] [place] [address] Chapito Alcantar, stitch wheeler for liver transplant was received and reviewed. The review notes 07/31/2025 Telephone [facility] Liver Transplant at [address] [phone] Chapito Alcantar, RN from Last 3 Months Immunizations Immunization Administration Dates Next Due Hepatitis B, adult 12/28/2023,06/29/2023, 023 tdap 09/10/2025 Social History Tobacco Use Types Packs/Day Years [...] 100% 09/10/2025 1 :00 PM EDT Weight 98.6 kg (217 lb 6.4 oz) 09/10/2025 11:53 AM EDT Height 167.6 cm (5' 6 ) 09/10/2025 11:53 AM EDT Body Mass Index 35.09 09/10/2025 11:53 AM EDT Plan of Treatment Health Maintenance Due Date Last Done Comments Abnormal Colonoscopy Follow Up 1961 Hepatitis C Screening (Acheive CCAhart) 1961 Immunization: COVID-19 (#1) 1966 Depression Screening 1979 HIV Screening 1979 Immunization: Hepatitis A (1 of 2 - Risk 2-dose series) 02/02/1980 Immunization: Pneumococcal ( 1 of 2 - PCV) 02/02/1980 Immunization: Zoster (1 of 2) 02/02/1980 Cologuard (FIT-DNA) 2006 Colonoscopy 2006 Colorectal Cancer Screening (MyChart) 2006 Stool Testing (gFOBT) 2006 Immunization: RSV (Adult) (1 - Risk 60-74 years 1-dose series) 2021 Immunization: Influenza (MyChart) (#1) 2025 Diabetes Screening 09/10/2026 09/10/2025 Immunization: DTaP/Tdap/Td ( 2 - Td or Tdap) 09/10/2035 09/10/2025 Immunization: Hepatitis B Completed 2023, 06/29/2023, 06/02/2023 Immunization: HPV Aged Out No longer eligible based on patient's age to complete this topic Procedures Procedure Name Priority Date/Time Associated Diagnosis Comments ABO/RH Routine 09/10/2025 5:03 PM EDT Alcoholic [...] EDT Pre-transplant evaluation for chronic liver disease TOXOPLASMA GONDII ANTIBODY, IGG Routine 09/10/2025 5:03 PM EDT Pre-transplant evaluation for chronic liver disease TREPONEMA PALLIDUM AB WITH REFLEX Routine 09/10/2025 5:03 PM EDT Pre-transplant evaluation for chronic liver disease MMR(IGG) PANEL (MEASLES, MUMPS, RUBELLA) Routine 09/10/2025 5:03 PM EDT Pre-transplant evaluation for chronic liver disease LIPID [...] (CMS-HCC) Pre-transplant evaluation for chronic liver disease TSH Routine 09/10/2025 5:03 PM EDT Alcoholic cirrhosis of liver with ascites (CMS-HCC) Pre-transplant evaluation for chronic liver disease PROTIME-INR Routine 09/10/2025 5:03 PM EDT Alcoholic cirrhosis of liver with ascites (CMS-HCC) Pre-transplant evaluation for chronic liver disease HEPATIC [...] (CMS-HCC) Pre-transplant evaluation for chronic liver disease ECG 12-LEAD (MUSE) Routine 09/10/2025 12 :14 PM EDT Alcoholic cirrhosis of liver with ascites (CMS-HCC) Pre-transplant evaluation for chronic liver disease CT CHEST WO CONTRAST Routine 09/10/2025 10:11 AM EDT Pre-transplant evaluation for chronic liver disease CT ABDOMEN AND OR PELVIS OUTSIDE EXAM Routine 09/08/2025 8:34 PM EDT US OUTSIDE EXAM Routine 09/08/2025 8:[address] ABDOMEN AND OR PELVIS OUTSIDE EXAM Routine 09/08/2025 8:31 PM EDT US OUTSIDE EXAM Routine 09/08/2025 8:31 PM EDT RENAL FUNCTION PANEL W/O EGFR Routine 08/29/2025 PROTIME-INR Routine 08/29/2025 HEPATIC FUNCTION PANEL Routine 08/29/2025 from Last 3 Months Results * (ABNORMAL) MMR(IgG) Panel (Measles, Mumps, Rubella) (09/10/2025 5:03 PM EDT) Mumps IgG Positive 09/10/2025 11:51 PM EDT [facility] MUMPS IGG NUM >300.00(H) 0.0 - 8.9 U/mL 09/10/2025 11:51 PM EDT [facility] Rubella IgG Scr Positive 09/10/2025 11:51 PM EDT [facility] RUB NUM 30.20(H) 0.0 - 0.8 INDEX 09/10/2025 11:51 PM EDT [facility] Rubeola Ab, IgG Positive 09/10/2025 11:50 PM EDT [facility] RUB IGG NUM >300.00(H) 0.00 - 13.40 U/mL 09/10/2025 11:50 PM EDT [facility] Serum 09/10/2025 5:03 PM EDT 09/10/2025 10:26 PM EDT Narrative [facility] - 09/10/2025 11:51 PM EDT [...] MD LAB BLOOD ORDERABLES Final Resu lt [facility] [address] [facility]. [address] * Syphilis Screening (Trepia) (09/10/2025 5:03 PM EDT) Treponema Pallidum Negative Negative 09/10/2025 11:55 PM EDT [facility] Comment: No serological evidence of infection with Treponema pallidum (incubating or early primary syphilis cannot be excluded). Serum 09/10/2025 5:03 PM EDT 09/10/2025 10:26 PM EDT us Navi Sims MD LAB BLOOD ORDERABLES Final Resu lt [facility] [address] * QuantiFERON TB2 Ag (09/10/2025 5:03 PM EDT) QuantiFERON TB2 Ag Value 0.09 09/12/2025 1:19 PM EDT [facility] Plasma 09/10/2025 5:03 PM EDT 09/10/2025 6:29 PM EDT us Navi Sims MD LAB BLOOD ORDERABLES Final Resu lt Performing Organization Address City/[facility]/ZIP Co de Phone Number [facility] [address] [facility]. [address] * QuantiFERON TB1 Ag (09/10/2025 5:03 PM EDT) QuantiFERON TB1 Ag Value 0.08 09/12/2025 1:19 PM EDT [facility] Plasma 09/10/2025 5:03 PM EDT 09/10/2025 6:29 PM EDT us Navi Sims MD LAB BLOOD ORDERABLES Final Resu lt [facility] [address] * QuantiFERON Nil (09/10/2025 5:03 PM EDT) QuantiFERON Nil 0.02 1:19 PM EDT [facility] Plasma 09/10/2025 5:03 PM EDT 09/10/2025 6:29 PM EDT us Navi Sims MD LAB BLOOD ORDERABLES Final Resu lt [facility] [address] [facility] [place] [address], [facility] * QuantiFERON Mitogen (09/10/2025 5:03 PM EDT) QuantiFERON Interpretation Negative Negative 09/12/2025 1:19 PM EDT [facility] Comment:Negative result pilar cates M. tuberculosis infection is NOT likely. Negative results do not preclude tuberculosis infection (especially in immunosuppressed patients). Negative results have a TB antigen minus Nil value less than 0.35 IU/mL. In cases with high suspicion of disease, retesting or additional testing with medical evaluation may be useful. QuantiFERON Mitogen 8.77 09/12 1:19 PM EDT [facility] Plasma 09/10/2025 5:03 PM EDT 09/10/2025 6:29 PM EDT Narrative [facility] - 09/12/2025 1:19 PM EDT [...] MD LAB BLOOD ORDERABLES Final Resu lt [facility] [address] [facility] [place] [address], [facility] * (ABNORMAL) Strongyloides Ab (09/10/2025 5:03 PM EDT) Strongyloides Ab Positive( A) Negative 09/17/2025 2:56 PM EST [facility] Serum 09/10/2025 5:03 PM EDT 09/17/2025 3:07 PM EST Narrative [facility] - 09/17/2025 3:07 PM EST PERFORMED AT: [facility] [id number] HEAD OF STOCK: Kevin Holguin MD PHONE: [phone] us Navi Sims MD LAB BLOOD ORDERABLES Final Resu lt [facility] [address] [facility]. [address] * (ABNORMAL) Hepatic Function Panel (09/10/2025 5:03 PM EDT) Only the most recent of2 resultswithin the time period is included. Total Bilirubin 5.9(H) 0.0 - 1.5 mg/dL 09/10/2025 8:21 PM EDT [facility] Bilirubin, Direct 1.62(H) 0.00 - 0.40 mg/dL 09/10/2025 8:21 PM EDT [facility] AST 40(H) 13 - 39 U/L 09/10/2025 8:21 PM EDT [facility] ALT 29 7 - 52 U/L 09/10/2025 8:21 PM EDT [facility] Alkaline Phosphatase 136(H) 36 - 125 U/L 09/10/2025 8:21 PM EDT [facility] Total Protein 6.2(L) 6.4 - 8.9 g/dL 09/10/2025 8:21 PM EDT [facility] Albumin 2.1(L) 3.5 - 5.7 g/dL 09/10/2025 8:21 PM EDT [facility] Bilirubin, Indirect 4.28(H) 0.00 - 1.10 mg/dL 09/10/2025 8:21 PM EDT [facility] Plasma 09/10/2025 5:03 PM EDT 09/10/2025 5:52 PM EDT us Buddy Zimmerman MD LAB BLOOD ORDERABLES Final Resul t [facility] [address] * AFP tumor marker (09/10/2025 5:03 PM EDT) [facility] AFP-Tumor Marker 2.0 0.0 - 9.0 ng/mL 09/10/2025 8:52 PM EDT [facility] Serum 09/10/2025 5:03 PM EDT 09/10/2025 6:42 PM EDT Narrative [facility] - 09/10/2025 8:52 PM EDT The testing method for AFP is a chemiluminescent immunoassay manufactured by [employer] Concentrations of AFP obtained by different assay methods or kits may vary and cannot be used interchangeably. AFP results cannot be interpreted as absolute evidence of the presence or absence of malignant disease. us Buddy Zimmeramn MD LAB BLOOD ORDERABLES Final Resul t [facility] [address] [facility]. [address] * ABO/Rh (09/10/2025 5:03 PM EDT) [facility] ABO Grouping A 09/10/2025 7:26 PM EDT [facility] Rh Type Positive 09/10/2025 7:26 PM EDT [facility] Blood 09/10/2025 5:03 PM EDT 09/10/2025 6:49 PM EDT us Buddy Zimmerman MD BLOOD BANK TEST ORDERABLES Final Result [facility] [address] * Toxoplasma gondii antibody, IgG (09/10/2025 5:03 PM EDT) [facility] Toxoplasma Gondii IgG <3.0 0.0 - 7.1 IU/mL 09/12/2025 6:21 AM EDT [facility] Comment: Negative <7.2 Equivocal 7.2 - 8.7 Positive >8.7 Serum 09/10/2025 5:0 3 PM EDT 09/12/2025 7:06 AM EDT Narrative [facility] - 09/12/2025 7:06 AM EDT PERFORMED AT: [facility] [id number] HEAD OF STOCK: Mateo Miller, PhD PHONE: [phone] Navi Sims MD LAB BLOOD ORDERABLES Final Resu lt Performing Organization Address City/[facility] Co de Phone Number [facility] [address] * (ABNORMAL) Protime-INR (09/10/2025 5:03 PM EDT) Only the most recent of2 resultswithin the time period is included. Protime 24.2(H) 12.1 - 15.1 seconds 09/10/2025 7:00 PM EDT [facility] INR 2.0(H) 0.9 - 1.1 09/10/2025 7:00 PM EDT [facility] Comment: RECOMMENDED THERAPEUTIC RANGES USING INR : Stable oral anticoagulant therapy: 2.0 - 3.0 Mechanical prosthetic heart valve: 2.5 - 3.5 Recurrent acute myocardial infarction: 2.5 - 3.5 Plasma 09/10/2025 5:03 PM EDT 09/10/2025 6:42 PM EDT Buddy Zimmerman MD LAB BLOOD ORDERABLES Final Resul t Performing Organization Address City/[facility] Co de Phone Number [facility] [address] [facility]. [address] * (ABNORMAL) CBC (09/10/2025 5:03 PM EDT) WBC 4.2 3.8 - 10.8 10E3/uL 09/10/2025 6:57 PM EDT [facility] RBC 3.39(L) 4.20 - 5.80 10E6/uL 09/10/2025 6:57 PM EDT [facility] Hemoglobin 11.4(L) 13.2 - 17.1 g/dL 09/10/2025 6:57 PM EDT [facility] Hematocrit 33.9(L) 38.5 - 50.0 % 09/10/2025 6:57 PM EDT [facility] MCV 100.1(H) 80.0 - 100.0 fL 09/10/2025 6:57 PM EDT [facility] MCH 33.7(H) 27.0 - 33.0 pg 09/10/2025 6:57 PM EDT [facility] MCHC 33.7 32.0 - 36.0 g/dL 09/10/2025 6:57 PM EDT [facility] RDW 18.5(H) 11.0 - 15.0 % 09/10/2025 6:57 PM EDT [facility] Platelets 66(L) 140 - 400 10E3/uL 09/10/2025 6:57 PM EDT [facility] MPV 7.8 7.5 - 11.5 fL 09/10/2025 6:57 PM EDT [facility] Whole Blood 09/10/2025 5:03 PM EDT 09/10/2025 6:33 PM EDT us Buddy Zimmerman MD LAB BLOOD ORDERABLES Final Resul t [facility] [address] * (ABNORMAL) Varicella zoster antibody, IgG (09/10/2025 5:03 PM EDT) Varicella IgG Positive( A) Negative S/CO 09/10/2025 11:49 PM EDT [facility] Comment:Result indicates the presence of detectable VZV IgG antibodies. A positive result is generally indicative of exposure to the pathogen or administration of specific immunoglobulins, but it is no indication of active infection or stage of disease. This test is not approved for determining vaccine-induced immunity to varicella zoster virus. VZV NUM 15.50(H) 0.00 - 0.99 S/CO 09/10/2025 11:49 PM EDT [facility] Serum 09/10/2025 5:03 PM EDT 09/10/2025 10:26 PM EDT Navi Sims MD LAB BLOOD ORDERABLES Final Resu lt [facility] [address] [facility]. [address] * TSH (Thyroid Stimulating Hormone) (09/10/2025 5:03 PM EDT) TSH 2.85 0.45 - 4.12 uIU/mL 09/11/2025 12:13 AM EDT [facility] Serum 09/10/2025 5:03 PM EDT 09/10/2025 6:42 PM EDT Buddy Zimmerman MD LAB BLOOD ORDERABLES Final Resul t Performing Organization Address [facility] Co de Phone Number [facility] [address] [facility]. [address] * Hemoglobin A1c (09/10/2025 5:03 PM EDT) Hemoglobin A1C 4.0 4.0 - 5.6 % 09/10/2025 11:22 PM EDT [facility] Comment: Hemoglobin A1c Interpretation Guidelines: [...] ORDERABLES Final Resul t Performing Organization Address [facility]/ZIP Co de Phone Number [facility] [address] [facility]. [address] * (ABNORMAL) Lipid Profile (09/10/2025 5:03 PM EDT) Non-HDL Cholesterol, Calculated 109 0 - 129 mg/dL 09/10/2025 8:21 PM EDT [facility] Comment: Desirable: < 130 mg/dL Above Desirable: 130-159 mg/dL Borderline High: 160-189 mg/dL High: 190-219 mg/dL Very High: > 219 mg/dL Cholesterol, Total 135 0 - 200 mg/dL 09/10/2025 8:21 PM EDT [facility] Triglycerides 60 10 - 149 mg/dL 09/10/2025 8:21 PM EDT [facility] HDL 26(L) 60 - 92 mg/dL 09/10/2025 8:21 PM EDT [facility] Comment: LIPID PROFILE INTERPRETATION CHOLESTEROL,TOTAL(mg/dL) [...] LDL Cholesterol 97 mg/dL 8:21 PM EDT [facility] Plasma 09/10/2025 5:03 PM EDT 09/10/2025 5:52 PM EDT Narrative [facility] - 09/10/2025 8:21 PM EDT Must the patient be fasting for this test?->No LDL cholesterol calculated using the Friedewald equation. us Buddy Zimmerman MD LAB BLOOD ORDERABLES Final Resul t [facility] [address] [place] [address], [facility] * (ABNORMAL) Basic metabolic panel (09/10/2025 5:03 PM EDT) Sodium 142 133 - 146 mmol/L 09/10/2025 8:21 PM EDT [facility] Potassium 3.8 3.5 - 5.3 mmol/L 09/10/2025 8:21 PM EDT [facility] Chloride 110 98 - 110 mmol/L 09/10/2025 8:21 PM EDT [facility] CO2 27 21 - 33 mmol/L 09/10/2025 8:21 PM EDT [facility] Comment:High lactate dehydro genase concentrations in patient samples may cause falsely increased bicarbonate results. If markedly elevated LDH is observed or suspected, please assess results in conjunction with patient`s clinical presentation. In cases of discrepant results, consider evaluating CO2 in with a blood gas order. Anion Gap 5 3 - 16 mmol/L 09/10/2025 8:21 PM EDT [facility] BUN 10 7 - 25 mg/dL 09/10/2025 8:21 PM EDT [facility] Creatinine 0.90 0.60 - 1.30 mg/dL 09/10/2025 8:21 PM EDT [facility] Glucose 79 70 - 100 mg/dL 09/10/2025 8:21 PM EDT [facility] Calcium 7.9(L) 8.6 - 10.3 mg/dL 09/10/2025 8:21 PM EDT [facility] Osmolality, Calculated 292 278 - 305 mOsm/kg 09/10/2025 8:21 PM EDT [facility] EGFR >90 09/10/2025 8:21 PM EDT [facility] Comment: As of 2022, the [...] will be reported as >90mL/min/1.73m2. Reference: Sachin Flannery, Kathy M, Rebecca DC, Josue ND, Dee [place], Nazia MARIE, et al. A Unifying Approach for GFR [...] MD LAB BLOOD ORDERABLES Final Resul t [facility] [address] [place] [address], [facility] * ECG 12-Lead (MUSE) (09/10/2025 12:14 PM EDT) 09/10/2025 12:1 4 PM EDT Narrative [facility]USE - 09/10/2025 3:28 PM EDT Ventricular Rate: 64 BPM Atrial Rate: 64 BPM P-R Interval: 190 ms QRS Duration: 84 ms QT: 464 ms QTc: 478 ms P Callands: 27 degrees R Callands: 58 degrees T Callands: 22 degrees Diagnosis Line: NORMAL SINUS RHYTHM ^ NORMAL ECG ^ No previous ECGs available ^ Confirmed by MD TIP, [facility] ([id number]) on 09/10/2025 3:28:36 PM Buddy Zimmerman MD ECG ORDERABLES Final Result Performing Organization Address [facility] [employer] Phone Number MUSE * CT Chest WO contrast (09/10/2025 10:11 [...] within the right upper lobe with downstream blxy-hs-laxrkrkgwqczo within the paramedian right upper lobe apex. [...] 09/12/2025 9:07 AM EDT Nigel Reaves MD IM CT ORDERABLES Final Result * CT Abdomen and or Pelvis Outside Exam (09/08/2025 8:34 PM EDT) Only the most recent of2 resultswithin the time period is included. Narrative 09/08/2025 8:34 PM EDT Images associated with this accession number were presented to us for comparison to an examination performed here. us Provider Not In System IM CT ORDERABLES Final R esult * US Outside Exam (09/08/2025 8:34 PM EDT) Only the most recent of2 resultswithin the time period is included. Narrative 09/08/2025 8:34 PM EDT Images associated with this accession number were presented to us for comparison to an examination performed here. us Provider Not In System IM US ORDERABLES Final R esult * (ABNORMAL) Renal Function Panel w/o EGFR (08/29/2025) Glucose 113 BUN 11 CO2 27(A) 13 - 22 mmol/L Creatinine 0.9 Potassium 4.4 Sodium 139 Chloride 109 Calcium 8.2 EGFR 85 mg/dL Albumin 2.2(A) 3.5 - 5.0 g/dL Blood Historical Provider LAB BLOOD ORDERABLES Nadia l Result from Last 3 Months Insurance [employer] ACCESS [id number] TERRANCE [facility] Care Teams Authors Motivational Relationship Specialty Start Date End Date System, Provider Not In PCP - General 09/10/25
--- OUTSIDE RECORDS SUMMARY | 2025-09-18 18:37 | XMS_ITS | Clinical Summary ---
Author Organization [facility] Address [address] [place] [address] Care Team Providers Care Director Of Recruitment Name Role Phone ToniUrban morataya DO Primary Care Provider [phone] Allergies Active Allergy Reactions Criticality Noted Date [...] Recently Relevant to Health Maintenance Insurance [facility] PPO Care Teams Director Of Recruitment Relationship Specialty Start Date End Date Urban Brantley DO [address] [place], [place] [id number] PCP - General Internal Medicine 03/22/23
--- OUTSIDE RECORDS SUMMARY | 2025-09-18 18:37 | XMS_ITS | Encounter Summary ---
Author Organization [facility] Address [address] [place] [address] Care Team Providers Care Production Counter Name Role Phone Unavailable Primary Care Provider [...] release of HIV test results or diagnoses. [id number] Health Encounter Details Date Type Department Care Team (Late st Contact Info) Description 07/31/2025 Telephone [facility] Liver Transplant at [address] [address] Chapito Alcantar RN Social History Tobacco Use [...] patient's spouse. Patient has been listed at for over a year and is inquiring [...]
--- OUTSIDE RECORDS SUMMARY | 2025-09-18 18:37 | XMS_ITS | Encounter Summary ---
Author Organization Healthcare Address [address] [place] [address] Care Team Providers Care Chief Crew Scheduler Name Role Phone Ruma Hernández THERMOFORMING MACHINE OPERATOR Unavailable [phone] Chris Medel MD Primary Care Provider [phone] Encounter Details Date Type Department Care Team (Late st Contact Info) Description 06/14/2025 Results Follow-Up [facility] [address] [place] [address] Meaghan Le, RN [facility] LIVER [id number] [address] [place] [address] Social History Tobacco Use Types [...] you attend [facility] or taoist services? More than 4 [...] and heating? Not hard at all 06/15/2025 [facility] of Occupat ional [facility] - Occupational Stress Questionnaire Answer [...] drink first t luisa in the morning (EYE-ROBOTICS SYSTEMS ENGINEER) to steady your nerves or to get rid of a hangover? 0 06/14/2025 CAGE Questionnaire Score 0 025 Utilities Answer Date Recorded In the past 12 months has [employer], gas, oil, or water [employer] threatened to shut off services in your [...] Not at all 07/11/2025 9:24 AM EDT Auide Atkinson Patient Health Questionnaire -2 Score 0 07/11/2025 9:24 AM EDT Audie Atkinson * Calculated C-SSRS Risk Score (Lifetime/Recent) Answer Date of Assessment Author No Risk Indicated 06/14/2025 9:23 PM EDT Chapito Jarrett, SILVIO * Question Answer Date of Assessment Author 1. Wish to be (Past 1 Month) No 025 9:23 PM EDT Chapito Jarrett, RN 2. Non-Specific Active Suici alisson Thoughts (Past 1 Month) No 06/14/2025 9:23 PM EDT Charles Jarrett, RN 6. Suicidal Behavior (Lifetime) No 9:23 PM EDT Chapito Jarrett, RN documented as of this encounter Miscellaneous [...] Urology [address], [address] [place] [address] Suhail Brock MD [address] [place] [address] 10/18/2025 4:20 PM EST Office Visit [facility] Bone & Mineral Metabolism [address], [address] [place] [address] Moustapha Katz MD [address] [facility] [address] [place] [address] 12/12/2025 8:30 AM EST Clinical Support [facility] [place] [address] [facility] [address] [place] [address] 12/12/2025 10:00 AM EST Office Visit [facility] [place] [address] [facility] [address] [place] [address] Portia Maguire MD [address] [facility] [address] [place] [address] documented as of this encounter [...] documented as of this encounter Care Teams Chief Crew Scheduler Relationship Specialty Start Date End Date Chris Medel MD [address] [place] [address] PCP - General 03/14/25 Ruma Hernández APRN [address] [place] [address] Referring Physician Gastroenterology 07/30/23 documented as of this encounter
--- OUTSIDE RECORDS SUMMARY | 2025-09-18 18:37 | XMS_ITS | Encounter Summary ---
Author Organization Healthcare Address [address] [place] [address] Care Team Providers Care Transportation Sales Consultant Name Role Phone Ruma Hernández EXPERIMENTAL ROCKET SLED MECHANIC Unavailable [phone] Chris Medel MD Primary Care Provider [phone] Encounter Details Date Type Department Care Team (Late st Contact Info) Description 06/14/2025 Results Follow-Up [facility] [address] [place] [address] Meaghan Le, RN [facility] LIVER [id number] [address] [place] [address] Social History Tobacco Use Types [...] you attend [facility] or presybeterian services? More than 4 times [...] How often do you attend chur or presybeterian services? More than 4 times [...] 06/15/2025 [facility] of Occupat ional [facility] - Occupational Stress Questionnaire Answer [...] time in the past 12 m [facility], were you homeless or living [...] drink first t luisa in the morning (EYE-BARGE LOADER) to steady your nerves or to get rid of a hangover? 0 06/14/2025 CAGE Questionnaire Score 0 025 Utilities Answer Date Recorded In the past 12 months has [employer], gas, oil, or water [employer] threatened to shut off services in your [...] Jarrett, RN documented as of this encounter Plan of Treatment Upcoming Encounters Date Type Department Care Team ([facility] st Contact Info) Description 10/03/2025 12:45 PM EST Office Visit Medical Office Building Urology [address], [address] [place] [address] Suhail Brock MD [address] [facility] [address] [place] [phone] 10/18/2025 4:20 PM EST [facility] [address], [address] [place] [address] Moustapha Katz MD [address] [facility] [address] [place] [address] 12/12/2025 8:30 AM EST Clinical Support [facility] [address] [facility] [address] [place] [address] 12/12/2025 10:00 AM EST Office Visit [facility] [place] [address] [facility] [address] [place] [address] Portia Maguire MD [address] [facility] [address] [place] [address] documented as of this encounter Visit Diagnoses [...] documented as of this encounter Care Teams Transportation Sales Consultant Relationship Specialty Start Date End Date Chris Medel MD [address] [place] [address] PCP - General 03/14/25 Ruma Hernández APRN [address] [facility] [address] [place] [address] Referring Physician Gastroenterology 07/30/23 documented as of this encounter
--- OUTSIDE RECORDS SUMMARY | 2025-09-18 18:38 | XMS_ITS | Encounter Summary ---
Author Organization [facility] Address [address] [place] [address] Care Team Providers Care Metal Sash Setter Name Role Phone System, Provider Not In [...] release of HIV test results or diagnoses. [id number] Health Encounter Details Date Type Department Care Team (Late st Contact Info) Description 09/11/2025 Chart Note [facility] Kid[facility] Transplant at [address] [phone] Ailin Wells Faxed Clinical for Listing/Txp Auth Social History Tobacco Use Types Packs/Day Years [...] encounter Progress Notes * Ailin Wells - 09/11/2025 4:15 PM EDT Faxed Clinical for Listing/Txp Auth Organ: liver Listed Date: TBD Ins: Jayy BAEZ Educational Resource Coordinator: pending documented in this encounter Plan of Treatment Not on file documented as of this encounter Visit Diagnoses Not on filedocumented in this encounter Care Teams Metal Sash Setter Relationship Specialty Start Date End Date System, Provider Not In PCP - General 09/10/25 documented as of this encounter
--- OUTSIDE RECORDS SUMMARY | 2025-09-18 18:38 | XMS_ITS | Encounter Summary ---
Author Organization [facility] Address [address] [place] [address] Care Team Providers Care Religious Leader Name Role Phone Unknown, Attending Provider Primary Care Provide r Unavailable System, Provider Not In Primary Care Provider [...] release of HIV test results or diagnoses. [id number] Reason for Referral * Imaging/Cardiovascular Scan (Routine) - New Request Specialty Diagnoses / Procedures Referred By Gianna reyes Referred To Contact Radiology Procedures CT Abdomen and or Pelvis Outside Exam System, Provider Not In [address] [address] Referral ID Status Reason Start Date Expiration Date V isits Requested Visits Authorized [id number] New Request 09/08/2025 03/07/2026 1 1 Encounter Details Date Type Department Care Team (Late st Contact Info) Description 04/21/2024 Orders Only EXTERNAL PROV RESULTS [address] [place] [address] System, Provider Not In Social History Tobacco Use Types Packs/Day Years Used Date Smoking Tobacco: Never Assessed Sex and Gender Information Value Date Recorded Sex Assigned at Not on file Legal Sex Male 3:33 PM EDT Gender Identity Not on file Sexual Orientation Not on file documented as of this encounter Plan of Treatment Not on file documented as of this encounter Results * CT Abdomen and or Pelvis Outside Exam (09/08/2025 8:34 PM EDT) Narrative 09/08/2025 8:34 PM EDT Images associated with this accession number were presented to us for comparison to an examination performed here. us Provider Not In System IMG CT ORDERABLES Final R esult documented in this encounter Visit Diagnoses Not on filedocumented in this encounter Care Teams Religious Leader Relationship Specialty Start Date End Date Unknown, Attending Provider PCP - General 08/29/2508/16 System, Provider Not In PCP - General 09/10/25 documented as of this encounter
--- OUTSIDE RECORDS SUMMARY | 2025-09-18 18:38 | XMS_ITS | Encounter Summary ---
Author Organization [facility] Address [address] [place] [address] Care Team Providers Care Forensic Psychologist Name Role Phone System, Provider Not In [...] release of HIV test results or diagnoses. [id number] Health Encounter Details Date Type Department Care Team (Late st Contact Info) Description 09/10/2025 Nutrition [facility] Kidney Transplant at [address] [address] Social History Tobacco Use Types Packs/Day Years [...] as of this encounter Progress Notes * Oskar Arango RD - 09/10/2025 12:42 PM EDT Initial Liver Transplant Nutrition Assessment HPI: Per MD note Pertinent Information: Chart reviewed per protocol to identify nutrition related risks prior to listing for liver transplant. Based on chart screening, interview with patient and collaboration with liver txp team, pt deemed appropriate for transplant from nutrition standpoint. Post transplant nutrition guidelines discussed and reviewed. No further nutrition related questions or concerns this encounter. Dietitian available for consultation on as needed basis as identified by the multidisciplinary team. Malnutrition Screening Tool Have you recently lost weight without trying? No 0 Unsure 2 If yes, how much weight have you lost? 2-13 lb 1 14-23 lb 2 24-33 lb 3 34 lb or more 4 Unsure 2 Weight loss score 0 2. Have you been eating poorly because of a decreased appetite? No 0 Yes 1 Appetite score 1 MST Score 1 MST Score 0 to 1 - Not at risk MST Score 2 or more - At risk HgbA1C: Lab Results Component Value Date HGBA1C 4.0 09/10/2025 Anthropometrics: Height Weight BMI 5' 6 (1.676 m) 217 lb 6.4 oz (98.6 kg) 35.09 kg/m?? Weight History: Wt Readings from Last 6 Encounters: 09/10/25 217 lb 6.4 oz (98.6 kg) Pertinent Labs: Lab Results Component Value Date CREATININE 0.90 09/10/2025 BUN 10 09/10/2025 NA 142 09/10/2025 K 3.8 09/10/2025 No results found for: MG , PHOS Lab Results Component Value Date ALT 29 09/10/2025 AST 40 (H) 09/10/2025 ALKPHOS 136 (H) 09/10/2025 BILITOT 5.9 (H) 09/10/2025 Lab Results Component Value Date ALBUMIN 2.1 (L) 09/10/2025 No results found for: [id number] PMH: Past Medical History: Diagnosis Date Epididymitis Hemochromatosis Hypertension Kidney stone UTI (urinary tract infection) Pertinent Medications: Home Medications Medication Sig Taking? Last Dose calcitRIOL (ROCALTROL) 0.25 MCG capsule Take 1 capsule (0.25 mcg total) by mouth. Take 1 capsule bymouth 5 times a week. Once daily Wednesday through Wednesday carvediloL (COREG) 3.125 MG tablet Take 1 tablet (3.125 mg total) by mouth 2 times a day. ergocalciferol (ERGOCALCIFEROL) 1,250 mcg (50,000 unit) capsule Take 1 capsule (50,000 Units total)by mouth once a week. furosemide (LASIX) 20 MG tablet Take 2 tablets (40 mg total) by mouth daily. omeprazole (PRILOSEC) 20 MG capsule Take 2 capsules (40 mg total) by mouth daily. spironolactone (ALDACTONE) 50 MG tablet Take 3 tablets (150 mg total) by mouth daily. XIFAXAN 550 mg Tab tablet Take 1 tablet (550 mg total) by mouth 2 times a day. Allergies[1] Food allergies/Intolerances: NKFA. Nutritional Intervention: Nutrition counseling with anticipative guidance/strategies to set appropriate goals and Post transplant diet guidelines Goals: Choose foods consistent with low sodium, high protein diet. Eat 4 to 5 small meals a day. Do not skip meals. Eat high-protein foods. (milk, eggs, cheese, meats, beans, nuts, peanut butter) Drink Medical Food supplements as needed. Include nutrient dense foods as discussed. Keep active as able/tolerated. Nutrition Related Risk Factors: Decreased appetite Joey Arango RD, LD Clinical Dietitian - Solid Organ Transplant Contact via [employer] Chat [1] Allergies Allergen Reactions Lisinopril Other (See Comments) documented in this encounter Plan of Treatment Not on file documented as of this encounter Visit Diagnoses Not on filedocumented in this encounter Care Teams Forensic Psychologist Relationship Specialty Start Date End Date System, Provider Not In PCP - General 09/10/25 documented as of this encounter
--- OUTSIDE RECORDS SUMMARY | 2025-09-18 18:38 | XMS_ITS | Encounter Summary ---
Author Organization Healthcare Address [address] [place] [address] Care Team Providers Care Museum Attendant Name Role Phone Ruma Hernández DECATIZER Unavailable [phone] Chris Medel MD Primary Care Provider [phone] Encounter Details Date Type Department Care Team (Late st Contact Info) Description 09/12/2025 Results Follow-Up [facility] [address] [place] [address] Meaghan Le, RN [facility] LIVER [id number] [address] [place] [address] Social History Tobacco Use Types [...] do you attend [facility] or restorationist services? More than 4 [...] How often do you attend chur or restorationist services? More than 4 times [...] [facility] of Occupat ional [facility] - Occupational Stress Questionnaire Answer Date [...] drink first t luisa in the morning (EYE-ASSESSMENT TECHNICIAN) to steady your nerves or to get rid of a hangover? 0 06/14/2025 CAGE Questionnaire Score 0 025 Utilities Answer Date Recorded In the past 12 months has [employer], gas, oil, or water [employer] threatened to shut off services in your [...] Encounter Note - Portia Maguire MD - 09/13/2025 8:49 AM EDT No concerning findings on MRI * Result Encounter Note - Meaghan Le RN - 09/12/2025 12:47 PM EDT MRI documented in this encounter Plan of Treatment Upcoming Encounters Date Type Department Care Team (Late st Contact Info) Description 10/03/2025 12:45 PM EST Office Visit Medical Office Building Urology [address] [place] [address] Suhail Brock MD [address] [facility] [address] [place] [address] 10/18/2025 4:20 PM EST Office Visit [facility] [address], [address] [place] [address] Moustapha Katz MD [address] [place] [address] 12/12/2025 8:30 AM EST Clinical Support [facility] [address] [facility] [address] [place] [address] 12/12/2025 10:00 AM EST Office Visit [facility] [address] [facility] [address] [place] [address] Portia Maguire MD [address] [place] [address] documented as of this encounter Visit Diagnoses [...] documented as of this encounter Care Teams Museum Attendant Relationship Specialty Start Date End Date Chris Medel MD [address] [place] [address] PCP - General 03/14/25 Ruma Hernández APRN [address] [place] [address] Referring Physician Gastroenterology 07/30/23 documented as of this encounter
--- OUTSIDE RECORDS SUMMARY | 2025-09-18 18:38 | XMS_ITS | Encounter Summary ---
Author Organization [facility] Address [address] [place] [address] Care Team Providers Care Intelligence Senior Sergeant Name Role Phone Unknown, Attending Provider Primary [...] release of HIV test results or diagnoses. [id number] Health Encounter Details Date Type Department Care Team (Late st Contact Info) Description 09/05/2025 Telephone [facility] Liver Transplant at [address] [address] Chapito Alcantar RN Social History Tobacco Use [...] Progress Notes * Chapito Alcantar RN - 09/05/2025 4:08 PM EDT Called and spoke to patient's spouse about upcoming testing and clinic appointment. Patient to bring updated list of medications. documented in this encounter Plan of Treatment Not on file documented as of this encounter Visit Diagnoses Not on filedocumented in this encounter Care Teams Intelligence Senior Sergeant Relationship Specialty Start Date End Date Unknown, Attending Provider PCP - General 08/29/2508/16 documented as of this encounter
--- OUTSIDE RECORDS SUMMARY | 2025-09-18 18:38 | XMS_ITS | Encounter Summary ---
Author Organization Healthcare Address [address] [place] [address] Care Team Providers Care Dye Colorist Formulator Name Role Phone Ruma Hernández BICYCLE REPAIRMAN Unavailable [phone] Chris Medel MD Primary Care Provider [phone] Encounter Details Date Type Department Care Team (Latest Contact Info) Description 09/11/2025 Travel Social History Tobacco Use Types Packs/Day [...] you attend [facility] or evangelical services? More than 4 [...] and heating? Not hard at all 06/15/2025 [facility] of Occupat ional Health - Occupational Stress [...] in the past 12 m [facility], were you homeless or living [...] drink first t luisa in the morning (EYE-FORENSIC IDENTIFICATION SPECIALIST) to steady your nerves or to [...] Upcoming Encounters Date Type Department Care Team ([facility] Contact Info) Description 10/03/2025 12:45 PM EST Office Visit Medical Office Building Urology [address], [address] [place] [address] Suhail Brock MD [address] [place] [address] 10/18/2025 4:20 PM EST [facility] Visit [facility] [address], [address] [place] [address] Moustapha Katz MD [address] [facility] [address] [place] [address] 12/12/2025 8:30 AM EST Clinical Support [facility] [address] [place] [address] 12/12/2025 10:00 AM EST Office Visit [facility] [address] [place] [address] Portia Maguire MD [address] [place] [address] documented as of this encounter Visit Diagnoses [...] documented as of this encounter Care Teams Dye Colorist Formulator Relationship Specialty Start Date End Date Chris Medel MD [address] [place] [address] PCP - General 03/14/25 Ruma Hernández APRN [address] [facility] [address] [place] [address] Referring Physician Gastroenterology 07/30/23 documented as of this encounter
--- OUTSIDE RECORDS SUMMARY | 2025-09-18 18:38 | XMS_ITS | Encounter Summary ---
Author Organization Healthcare Address [address] [place] [address] Care Team Providers Care Barge Captain Name Role Phone Ruma Hernández ART FRAMING MANAGER Unavailable [phone] Chris Medel MD Primary Care Provider [phone] Encounter Details Date Type Department Care Team (Late st Contact Info) Description 08/20/2025 Results Follow-Up [facility] [address] [place] [address] Meaghan Le, RN [facility] LIVER [id number] [address] [place] [address] Social History Tobacco Use Types [...] do you attend [facility] or [facility] services? More than 4 [...] How often do you attend chur or advent services? More than 4 times [...] 06/15/2025 [facility] of Occupat ional [facility] - Occupational Stress Questionnaire Answer Date [...] drink first t luisa in the morning (EYE-SPORTS PHYSICAL THERAPIST) to steady your nerves or to get rid of a hangover? 0 06/14/2025 CAGE Questionnaire Score 0 025 Utilities Answer Date Recorded In the past 12 months has th e electric, gas, oil, or water Reasoning [employer] threatened to shut off services in [...] Building Urology [address], [address] [place] [address] Suhail Brock MD [address] [facility] [address] [place] [address] 10/18/2025 4:20 PM EST Office Visit [facility] [address], [address] [place] [address] Moustapha Katz MD [address] [place] [address] 12/12/2025 8:30 AM EST Clinical Support [facility] [place] [address] [facility] [address] [place] [address] 12/12/2025 10:00 AM EST Office Visit [facility] [address] [place] [address] Portia Maguire MD [address] [facility] [address] [place] [address] documented as of this encounter [...] documented as of this encounter Care Teams Barge Captain Relationship Specialty Start Date End Date Chris Medel MD [address] [place] [address] PCP - General 03/14/25 Ruma Hernández, DEEP [address] [place] [address] Referring Physician Gastroenterology 07/30/23 documented as of this encounter
--- OUTSIDE RECORDS SUMMARY | 2025-09-18 18:38 | XMS_ITS | Encounter Summary ---
Author Organization Healthcare Address [address] [place] [address] Care Team Providers Care Body Die Maker Name Role Phone Ruma Hernández NURSERY HAND Unavailable Chris Medel MD Primary Care Provider [phone] Encounter Details Date Type Department Care Team (Latest Contact Info) Description 09/12/2025 Travel Social History Tobacco Use Types Packs/Day [...] How often do you attend [facility] or faith services? More than 4 [...] and heating? Not hard at all 06/15/2025 [facility] of Occupat ional Health - Occupational Stress [...] drink first t luisa in the morning (EYE-IMPREGNATOR CARBON PRODUCTS) to steady your nerves or to get [...] Office Building Urology [address] [facility], [address] [place] [address] Suhail Brock MD [address] [facility] [address] [place] [address] 10/18/2025 4:20 PM EST Office Visit [facility] [address] [facility], [address] [place] [address] Mosutapha Katz MD [address] [facility] [address] [place] [address] 12/12/2025 8:30 AM EST Clinical Support [facility] [place] [address] [facility] [address] [place] [address] 12/12/2025 10:00 AM EST Office Visit [facility] [place] [address] [facility] [address] [place] [address] Portia Maguire MD [address] [facility] [address] [place] [address] documented as of this encounter [...] documented as of this encounter Care Teams Body Die Maker Relationship Specialty Start Date End Date Chris Medel MD [address] [place] [address] PCP - General 03/14/25 Ruma Hernández APRN [address] [facility] [address] [place] [address] Referring Physician Gastroenterology 07/30/23 documented as of this encounter
--- OUTSIDE RECORDS SUMMARY | 2025-09-18 18:38 | XMS_ITS | Encounter Summary ---
Author Organization Healthcare Address [address] [place] [address] Care Team Providers Care Buyer Renter Name Role Phone Ruma Hernández TOWER OBSERVER Unavailable [phone] Chris Medel MD Primary Care Provider [phone] Encounter Details Date Type Department Care Team (Late st Contact Info) Description 08/31/2025 Results Follow-Up [facility] [address] [place] [address] Meaghan Le, RN [facility] LIVER [id number] [address] [place] [address] Social History Tobacco Use Types [...] you attend [facility] or mormonism services? More than 4 times per year 02/19/2025 Do you belong to any clubs o r organizations such as episcopal groups, unions, fraternal or athletic groups, or [...] o r organizations such as episcopal groups, unions, fraternal or athletic groups, or [...] all 06/15/2025 [facility] of Occupat ional [facility] - Occupational Stress Questionnaire Answer Date [...] drink first t luisa in the morning (EYE-AMMUNITION AND EXPLOSIVES HANDLER) to steady your nerves or to get [...] Encounter Note - Portia Maguire MD - 09/05/2025 9:03 AM EDT ALP is 326 MELD is 20 Can we obtain MRI/MRCP with RTC? If no concerns on imaging can consider ursodiol * Result Encounter Note - Meaghan Le RN - 08/31/2025 6:25 AM EDT 08/29 labs - pt went because he felt bad, stable compared to prior labs documented in this encounter Plan of Treatment Upcoming Encounters Date Type Department Care Team (Late st Contact Info) Description 10/03/2025 12:45 PM EST Office Visit Medical Office Building Urology [address] [facility], [address] [place] [address] Suhail Brock MD [address] [facility] [address] [place] [address] 10/18/2025 4:20 PM EST Office Visit [facility] [address], [address] [place] [address] Moustapha Katz MD [address] [place] [address] 12/12/2025 8:30 AM EST Clinical Support [facility] [place] [address] [facility] [address] [place] [address] 12/12/2025 10:00 AM EST Office Visit [facility] [place] [address] [facility] [address] [place] [address] Portia Maguire MD [address] [facility] [address] [place] [address] documented as of this encounter [...] documented as of this encounter Care Teams Buyer Renter Relationship Specialty Start Date End Date Chris Medel MD [address] [place] [address] PCP - General 03/14/25 Ruma Hernández APRN [address] [facility] [address] [place] [address] Referring Physician Gastroenterology 07/30/23 documented as of this encounter
--- OUTSIDE RECORDS SUMMARY | 2025-09-18 18:38 | XMS_ITS | Encounter Summary ---
Author Organization [facility] Address [address] [place] [address] Care Team Providers Care Slab Tripper Name Role Phone Unknown, Attending Provider Primary [...] release of HIV test results or diagnoses. [id number] Health Encounter Details Date Type Department Care Team (Late st Contact Info) Description 09/13/2024 Orders Only EXTERNAL PROV RESULTS [address] [place] [address] System, Provider Not In Social History Tobacco [...] as of this encounter Results * US Outside Exam (09/08/2025 8:34 PM EDT) Narrative 09/08/2025 8:34 PM EDT Images associated with this accession number were presented to us for comparison to an examination performed here. us Provider Not In System IMG US ORDERABLES Final R esult documented in this encounter Visit Diagnoses Not on filedocumented in this encounter Care Teams Slab Tripper Relationship Specialty Start Date End Date Unknown, Attending Provider PCP - General 08/29/2508/16 System, Provider Not In PCP - General 09/10/25 documented as of this encounter
--- OUTSIDE RECORDS SUMMARY | 2025-09-18 18:38 | XMS_ITS | Encounter Summary ---
Author Organization Healthcare Address [address] [place] [address] Care Team Providers Care Automotive Parts Manager Name Role Phone Ruma Hernández METER READER INSPECTOR Unavailable [phone] Chris Medel MD Primary Care Provider [phone] Reason for Referral * Imaging (Routine) - Closed Specialty Diagnoses / Procedures Referred By Gianna reyes Referred To Contact Radiology Diagnoses Pre-liver transplant, listed Procedures MR Abdomen w and wo IV Contrast Portia Maguire MD [address] [facility] [address] [place] [address] Phone: tel: fax: Referral ID Status Reason Start Date Expiration Date Visits Re quested Visits Authorized [id number] Closed 09/05/2025 03/07/2027 1 1 Encounter Details Date Type Department Care Team (Late st Contact Info) Description 09/05/2025 Orders Only [facility] [address] [facility] [address] [place] [address] Meaghan Le, RN HOSPITAL LIVER [id number] [address] [place] [address] Pre-liver transplant, listed (Primary Dx) Social History Tobacco Use Types [...] week 02/19/2025 How often do you attend [facility] or worship services? More than 4 times [...] heating? Not hard at all 06/15/2025 [facility] of Occupat ional Health - [...] medical appointments or from getting medications? 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) to steady your nerves or to get [...] Upcoming Encounters Date Type Department Care Team ([facility] Contact Info) Description 10/03/2025 12:45 PM EST Office Visit Medical Office Building Urology [address] [facility], [address] [place] [address] Suhail Brock MD [address] [facility] [address] [place] [address] 10/18/2025 4:20 PM EST Office Visit [facility] [address], [address] [place] [address] Moustapha Katz MD [address] [place] [address] 12/12/2025 8:30 AM EST Clinical Support [facility] [place] [address] [place] [address] 12/12/2025 10:00 AM EST Office Visit [facility] [place] [address] [place] [address] Portia Maguire MD [address] [place] [address] documented as of this encounter Results * MR Abdomen w [...] are consistent with and integrated into the [place] [employer] of Liver Diseases [...] using the following sequences: coronal single shot [id number] fast spin echo, axial T2 weighted sequences [...] are consistent with and integrated into the [place] Associationfor the Study of Liver Diseases (AASLD) [...] Luh Fuller MD on 09/12/2025 11:41 AM us Portia Maguire MD IMG MRI PROCEDURES Final [...] documented as of this encounter Care Teams Automotive Parts Manager Relationship Specialty Start Date End Date Chris Medel MD [address] [place] [address] PCP - General 03/14/25 Ruma Hernández APRN [address] [place] [address] [address] [place] [id number] Referring Physician Gastroenterology 07/30/23 documented as of this encounter
--- OUTSIDE RECORDS SUMMARY | 2025-09-18 18:38 | XMS_ITS | Encounter Summary ---
Author Organization [facility] Address [address] [place] [address] Care Team Providers Care Orchid Hand Name Role Phone System, Provider Not [...] release of HIV test results or diagnoses. [id number] Health Encounter Details Date Type Department Care Team (Late st Contact Info) Description 09/11/2025 Telephone [facility] Liver Transplant at [address] [address] Chapito Alcantar RN Social History Tobacco Use [...] encounter Miscellaneous Notes * Telephone Encounter - Chapito Alcantar RN - 09/11/2025 4:31 PM EDT Spoke with patient's spouse and advised they proceed with patient's ABD MRI, as requested by another transplant center. 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 Will get MRI images pushed over once completed. documented in this encounter Plan of Treatment Not on file documented as of this encounter Visit Diagnoses Not on filedocumented in this encounter Care Teams Orchid Hand Relationship Specialty Start Date End Date System, Provider Not In PCP - General 09/10/25 documented as of this encounter
--- OUTSIDE RECORDS SUMMARY | 2025-09-18 18:38 | XMS_ITS | Encounter Summary ---
Author Organization [facility] Address [address] [place] [address] Care Team Providers Care Student Officer Name Role Phone Unknown, Attending Provider [...] release of HIV test results or diagnoses. [id number] Health Encounter Details Date Type Department Care Team (Late st Contact Info) Description 09/05/2025 Abstract [facility] Liver Transplant at [address] [address] Chapito Alcantar, SILVIO Alcoholic cirrhosis of liver with ascites (CMS-HCC) (Primary Dx); Ascites due to alcoholic cirrhosis (CMS-HCC); Hepatic encephalopathy (CMS-HCC); Esophageal varices without bleeding, unspecified esophageal varices type (CMS-HCC); Pre-transplant evaluation for chronic liver disease Social History Tobacco Use Types Packs/Day Years Used Date Smoking Tobacco: Never Smokeless Tobacco: Former Tobacco Cessation:Counseling Given: Not Answered Alcohol Use [...] cirrhosis of liver with ascites (CMS-HCC)- Primary Ascites due to alcoholic cirrhosis (CMS-HCC) Hepatic encephalopathy (CMS-HCC) Hepatic encephalopathy Esophageal varices without bleeding, unspecified esophageal varices type (CMS-HCC) Pre-transplant evaluation for chronic liver disease documented in this encounter Care Teams Student Officer Relationship Specialty Start Date End Date Unknown, Attending Provider PCP - General 08/29/2508/16 documented as of this encounter
--- OUTSIDE RECORDS SUMMARY | 2025-09-18 18:38 | XMS_ITS | Encounter Summary ---
Author Organization [facility] Address [address] [place] [address] Care Team Providers Care Bounty Trapper Name Role Phone System, Provider Not In [...] release of HIV test results or diagnoses. [id number] Health Encounter Details Date Type Department Care Team (Late st Contact Info) Description 09/10/2025 Chart Note [facility] Liver Transplant at [address] [address] Chapito Alcantar RN Alcoholic cirrhosis of liver with ascites [...] Progress Notes * Chapito Alcantar RN - 09/10/2025 9:11 AM EDT [place] tab updated documented in this encounter Plan of Treatment Not on file documented as of this encounter Procedures Procedure Name Priority Date/Time Associated Diagnosis Comments HEPATIC FUNCTION PANEL Routine 08/29/2025 PROTIME-INR Routine 08/29/2025 RENAL FUNCTION PANEL W/O EGFR Routine 08/29/2025 documented in this encounter Results * ECG 12-Lead (MUSE) (09/10/2025 12:14 PM EDT) 09/10/2025 12:1 4 PM EDT Narrative MUSE - 09/10/2025 3:28 PM EDT Ventricular Rate: 64 BPM Atrial Rate: 64 BPM P-R Interval: 190 ms QRS Duration: 84 ms QT: 464 ms QTc: 478 ms P Gamaliel: 27 degrees R Gamaliel: 58 degrees T Gamaliel: 22 degrees Diagnosis Line: NORMAL SINUS RHYTHM ^ NORMAL ECG ^ No previous ECGs available ^ Confirmed by MD TIP, [facility] ([id number]) on 09/10/2025 3:28:36 PM Buddy Zimmerman MD ECG ORDERABLES Final Result MUSE * (ABNORMAL) Renal Function Panel w/o EGFR (08/29/2025) Glucose 113 BUN 11 CO2 27(A) 13 - 22 mmol/L Creatinine 0.9 Potassium 4.4 Sodium 139 Chloride 109 Calcium 8.2 EGFR 85 mg/dL Albumin 2.2(A) 3.5 - 5.0 g/dL Blood Historical Provider LAB BLOOD ORDERABLES Nadia l Result * (ABNORMAL) Protime-INR (08/29/2025) INR 1.71(A) 0.9 - 1.1 Protime 18.2 Plasma Historical Provider LAB BLOOD ORDERABLES Nadia l Result * Hepatic Function Panel (08/29/2025) Alkaline Phosphatase 326 ALT 45 AST 52 Total Bilirubin 4.2 Total Protein 6.1 Plasma Historical Provider LAB BLOOD ORDERABLES Nadia l Result documented in this encounter Visit Diagnoses Diagnosis Pre-transplant evaluation for chronic liver disease- Primary Alcoholic cirrhosis of liver with ascites (CMS-HCC) Alcoholic cirrhosis of liver with ascites (CMS-HCC)- Primary Pre-transplant evaluation for chronic liver disease documented in this encounter Care Teams Bounty Trapper Relationship Specialty Start Date End Date System, Provider Not In PCP - General 09/10/25 documented as of this encounter
--- OUTSIDE RECORDS SUMMARY | 2025-09-18 18:38 | XMS_ITS | Encounter Summary ---
Author Organization [facility] Address [address] [place] [address] Care Team Providers Care Electrical Unit Rebuilder Name Role Phone Unknown, Attending Provider Primary [...] release of HIV test results or diagnoses. [id number] Health Encounter Details Date Type Department Care Team (Late st Contact Info) Description 09/05/2025 Telephone [facility] Liver Transplant at [address] [address] Cori Dover MA Social History Tobacco Use [...] Progress Notes * Cori Dover MA - 09/05/2025 3:44 PM EDT Called to request the following images be sent to [facility] Pacs: Must send fax request. Request faxed successfully. - CT Liver 06/13/25 - CT ABD 04/21/24 * Cori [place] MA - 09/05/2025 3:41 PM EDT Called patient spouse to go over appointments and advise that the appointment time has been moved up to noon so patient can see other providers as scheduled. Appointment confirmed and acknowledged. documented in this encounter Plan of Treatment Not on file documented as of this encounter Visit Diagnoses Not on filedocumented in this encounter Care Teams Electrical Unit Rebuilder Relationship Specialty Start Date End Date Unknown, Attending Provider PCP - General 08/29/2508/16 documented as of this encounter
--- OUTSIDE RECORDS SUMMARY | 2025-09-18 18:38 | XMS_ITS | Encounter Summary ---
Author Organization [facility] Address [address] [place] [address] Care Team Providers Care Roguer Name Role Phone Unknown, Attending Provider Primary [...] release of HIV test results or diagnoses. [id number] Health Encounter Details Date Type Department Care Team (Late st Contact Info) Description 06/13/2025 Orders Only EXTERNAL PROV RESULTS [address] [place] [id number] System, Provider Not In Social History Tobacco [...] on filedocumented in this encounter Care Teams Roguer Relationship Specialty Start Date End Date Unknown, Attending Provider PCP - General 08/29/2508/16 System, Provider Not In PCP - General 09/10/25 documented as of this encounter
--- OUTSIDE RECORDS SUMMARY | 2025-09-18 18:38 | XMS_ITS | Clinical Summary ---
Author Organization [facility] Address [address] [place] [address] Care Team Providers Care Returning Officer Name Role Phone Ruma Hernández ASSURANCE ENGINEER Unavailable [phone] Chris Medel MD Primary Care Provider [phone] Allergies Active Allergy Reactions Criticality Noted Date Comments Lisinopril Cough Low 09/15/2021 Medications carvedilol (Coreg) 3.125 MG tabletIndication s:Cirrhosis of liver with ascites, unspecified hepatic cirrhosis type Take 1 tablet (3.125 mg) by mouth 2 (two) times a day with meals. 60 tablet 11 4 Active Xifaxan 550 MG tablet Take 1 tablet by mouth 2 times a day. 5 Active ergocalciferol (Vitamin D-2) 1.25 MG (09723 UT) capsule Take 1 capsule by mouth [...] 180 tablet 3 5 03/14/20 26 Active Additional Information Patient taking differently: 20 mgOral Daily, Reported on 09/12/2025 omeprazole (PriLOSEC) [address] capsuleIndicatio ns:Cirrhosis of liver with ascites, unspecified hepatic cirrhosis type Take 2 capsules by mouth daily. 180 capsule 3 5 03/14/20 Active spironolactone (Aldactone) 50 MG tabletIndication s:Bilateral leg edema,Cirrhosis of liver with ascites, unspecified hepatic cirrhosis type,Other ascites Take 3 tablets by mouth daily. 270 each 1 5 12/22/19 26 Active Additional Information Patient taking differently: 50 mgOral Daily, Reported on 09/12/2025 calcitriol (Rocaltrol) 0.25 MCG capsule Take 1 capsule by mouth 5 times a week. Once daily Wednesday through Wednesday 20 capsule 5 Active Active Problems Problem Noted Date [...] Encounters Date Type Department Care Team Description 09/12/2025 10:00 AM EDT Office Visit [facility] [address] [facility] [address] [place] [address] Portia Maguire MD Pre-liver transplant, listed (Primary Dx); Cirrhosis of liver with ascites, unspecified hepatic cirrhosis type; Other ascites; Alcoholic cirrhosis, unspecified whether ascites present; Hemochromatosis associated with compound heterozygous mutation in HFE gene; Alcohol use disorder, moderate, in sustained remission; Hepatic encephalopathy (CMS/HCC) 09/12/2025 8:47 AM EDT - 09/12/2025 11:59 PM EDT Hospital Encounter [facility] [address] [place] [address] Pre-liver transplant, listed Discharge Disposition: Home or Self Care 09/12/2025 Results Follow-Up [facility] [place] [address] [phone] Meaghan Le, RN 09/12/2025 Travel 09/11/2025 Travel 09/05/2025 Orders Only [facility] [place] [id number] [place] [address] Meaghan Le, RN Pre-liver transplant, listed (Primary Dx) 08/31/2025 Results Follow-Up [facility] [place] [address] [phone] Meaghan Le, SILVIO 08/29/2025 Orders Only [facility] [address] [place] [address] Provider, Historical 08/20/2025 Results Follow-Up [facility] [place] [address] [phone] Meaghan Le, SILVIO 08/01/2025 Results Follow-Up [facility] [place] [address] [place] [address] Meaghan Le, SILVIO 07/19/2025 Results Follow-Up [facility] [place] [address] [place] [address] Meaghan Le, SILVIO 07/11/2025 10:30 AM EDT Office Visit [facility] [place] [address] [phone] Portia Maguire MD Cirrhosis of liver with ascites, unspecified hepatic cirrhosis type (CMS/HCC) (Primary Dx); Other ascites; Pre-liver transplant, listed; Alcoholic cirrhosis, unspecified whether ascites present (CMS/HCC); Hemochromatosis associated with compound heterozygous mutation in HFE gene; Alcohol use disorder, moderate, in sustained remission 07/11/2025 9:30 AM EDT Social Work [facility] [address] [address] Liliane Jacobs, OMAR 07/11/2025 Travel 07/05/2025 Results Follow-Up [facility] [address] [phone] Meaghan Le RN 06/29/2025 Results Follow-Up [facility] [address] [address] Meaghan Le, RN 06/25/2025 Telephone [facility] [address] [address] Meaghan Le, RN 06/21/2025 Results Follow-Up [facility] [place] [address] [phone] Meaghan Le, RN 06/20/2025 Telephone [facility] [address] [address] Meaghan Le, RN from Last [...] How often do you attend [facility] or zoroastrian services? More than 4 [...] How often do you attend [facility] or zoroastrian services? 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 0 06/14/2025 CAGE Questionnaire Score 0 025 Utilities Answer Date Recorded In the past 12 months has th e electric, gas, oil, or water [employer] threatened to shut off services in your [...] Mass Index 35.58 09/12/2025 8:12 AM EDT Plan of Treatment Upcoming Encounters Date Type Department Care Team (Late st Contact Info) Description 10/03/2025 12:45 PM EST Office Visit Medical Office Building Urology [address] [facility], [address] [place] [address] Suhail Brock MD [address] [place] [address] 10/18/2025 4:20 PM EST Office Visit [facility] [address] [facility], [address] [place] [address] Moustapha Katz MD [address] [place] [address] 12/12/2025 8:30 AM EST Clinical Support [facility] [address] [place] [address] 12/12/2025 10:00 AM EST Office Visit [facility] [address] [place] [address] Portia Maguire MD [address] [facility] [address] [place] [address] Health Maintenance Due Date Last Done Comments [facility]-Infant/Child/Adol SDOH Screenings 1961 [facility]-Hepatitis A Vaccines (1 of 2 - Risk 2-dose series) 02/02/1980 [facility]-Pneumococcal Vaccine: 50+ Years (1 of 2 - PCV) 02/02/1980 CT Colonography 2006 Colonoscopy 2006 FIT-DNA 2006 FIT 2006 FOBT 2006 Sigmoidoscopy 2006 [facility]-Colorectal Cancer Screening 2006 [facility]-Zoster Vaccines (1 of 2) 2011 [facility]-RSV Vaccine: 60+ Years or (1 - Risk 60-74 years 1-dose series) 2021 [id number] Vaccine ( - season) 2025 [facility]-Influenza Vaccine (#1) 2025 [facility]- SDOH Screenings 12/16/2025 [facility]-Adult SDOH Screenings 12/16/2025 06/15/2025 [facility]-Bone Density Scan 06/08/2026 06/08/2025, 024 [facility]-Depression Screening 09/12/2026 09/12/2025, 09/16 [facility]-DTaP,Tdap,and Td Vaccines (2 - Td or Tdap) 09/10/2035 09/10/2025 [facility]-HIV Screening Completed 06/14/2025, 04/11/2024 [facility]-Hepatitis C Screening Completed 2024, 06/14/2025, 08/03/2023 [facility]-Obesity Intervention Completed 025, 07/11/2025, 06/14/2025, Additional history exists HPV Vaccines Aged Out [...] 09/12/2025 9:42 AM EDT Pre-liver transplant, listed PAIN MANAGEMENT, QUANTITATIVE URINE DRUG TESTING Routine 09/12/2025 7:55 AM EDT Pre-liver transplant, listed ALCOHOL, URINE Routine 09/12/2025 7:55 AM EDT Pre-liver transplant, listed CBC W/O DIFFERENTIAL Routine 09/12/2025 7:55 AM EDT Pre-liver transplant, listed COMPREHENSIVE METABOLIC PANEL, PLASMA Routine 09/12/2025 7:55 AM EDT Pre-liver transplant, listed COMPREHENSIVE URINE DRUG SCREENING,QUALITATIVE ASSAY, >= 27 DRUG CLASSES Routine 09/12/2025 7:55 AM EDT Pre-liver transplant, listed NICOTINE AND COTININE METABOLITE, SERUM, QUANTITATIVE Routine 09/12/2025 7:55 AM EDT Pre-liver transplant, listed PAIN MANAGEMENT, QUANTITATIVE URINE DRUG TESTING Routine 09/12/2025 7:55 AM EDT Pre-liver transplant, listed PROTHROMBIN TIME(PT) / INR Routine 09/12/2025 7:55 AM EDT Pre-liver transplant, listed ALPHA FETOPROTEIN, SERUM Routine 09/12/2025 7:55 AM EDT Pre-liver transplant, listed COMPLETE METABOLIC PROFILE (CMP) Routine 08/29/2025 12:13 PM EDT PROTHROMBIN TIME(PT) / INR Routine 08/29/2025 11:11 AM EDT CBC WITH AUTO DIFFERENTIAL Routine 08/29/2025 11:11 AM EDT COMPREHENSIVE METABOLIC PANEL, PLASMA Routine 08/29/2025 CBC W/O DIFFERENTIAL Routine 08/29/2025 PROTHROMBIN TIME(PT) / INR Routine 08/29/2025 COMPREHENSIVE METABOLIC PANEL, PLASMA Routine 08/15/2025 CBC [...] 06/20/2025 PROTHROMBIN TIME(PT) / INR Routine 06/20/2025 HEPATITIS C ANTIBODY W/REFLEX TO HCV QUANT PCR STAT 06/14/2025 6:31 PM EDT HIV 1/2 ANTIBODY/ANTIGEN SCREEN WITH REFLEX TO HIV I/II DIFFERENTIATION STAT 06/14/2025 6:31 PM EDT DEXA BONE DENSITY Routine 06/08/2025 8:3 5 AM EDT Other osteoporosis without current pathological fracture from Last 3 Months or Most Recently Relevant to Health Maintenance Results * MR Abdomen w and wo [...] are consistent with and integrated into the [employer] Diseases [...] using the following sequences: coronal single shot [id number] fast spin echo, axial T2 weighted sequences [...] are consistent with and integrated into the [employer]for [employer] of Liver Diseases (AASLD) [...] Maguire MD IMG MRI PROCEDURES Final Result * Pain Management, Quantitative Urine Drug Testing (09/12/2025 7:55 AM EDT) Only the most recent of2 resultswithin the time period is included. Alpha OH Alprazolam <20 <20 ng/mL 09/14 7:16 AM EDT [facility] Alpha OH Midazolam <20 <20 ng/mL 2024 7:16 AM EDT [facility] Alpha OH Triazolam <20 <20 ng/mL 2024 7:16 AM EDT [facility] Alprazolam <10 <10 ng/mL 09/14/2025 7:16 AM EDT [facility] Aminoclonazepam <20 <20 ng/mL 7:16 AM EDT [facility] Amphetamine <50 <50 ng/mL 09/14/2025 7:16 AM EDT [facility] Benzoylecgonine <50 <50 ng/mL 7:16 AM EDT [facility] Buprenorphine <10 <10 ng/mL 09/14/2025 7:16 AM EDT [facility] Buprenorphine Glucuronide <50 <50 ng/mL 09/14/2025 7:16 AM EDT [facility] Butalbital <50 <50 ng/mL 09/14/2025 7:16 AM EDT [facility] 9 Carboxy THC <10 <10 ng/mL 09/14/2025 7:16 AM EDT [facility] 9 Carboxy THC Glucuronide <25 <25 ng/mL 09/14/2025 7:16 AM EDT [facility] Clonazepam <10 <10 ng/mL 09/14/2025 7:16 AM EDT [facility] Codeine <50 <50 ng/mL 09/14/2025 7:16 AM EDT [facility] Codeine Glucuronide <50 <50 ng/mL 09/14 7:16 AM EDT [facility] Cyclobenzaprine <50 <50 ng/mL 7:16 AM EDT [facility] Desmethyl Tramadol <50 <50 ng/mL 2024 7:16 AM EDT [facility] Diazepam <10 <10 ng/mL 09/14/2025 7:16 AM EDT [facility] EDDP - Methadone Metabolite <50 <50 ng/mL 09/14/2025 7:16 AM EDT [facility] Fentanyl <1 <1 ng/mL 09/14/2025 7:16 AM EDT [facility] Hydrocodone <50 <50 ng/mL 09/14/2025 7:16 AM EDT [facility] Hydromorphone <50 <50 ng/mL 09/14/2025 7:16 AM EDT [facility] Hydromorphone Glucuronide <50 <50 ng/mL 09/14/2025 7:16 AM EDT [facility] Lorazepam <20 <20 ng/mL 09/14/2025 7:16 AM EDT [facility] Lorazepam Glucuronide <50 <50 ng/mL 09/14/2025 7:16 AM EDT [facility] MDA <50 <50 ng/mL 09/14/2025 7:16 AM EDT [facility] MDMA <50 <50 ng/mL 09/14/2025 7:16 AM EDT [facility] Meperidine <50 <50 ng/mL 09/14/2025 7:16 AM EDT [facility] Methadone <50 <50 ng/mL 09/14/2025 7:16 AM EDT [facility] Methamphetamine <50 <50 ng/mL 7:16 AM EDT [facility] Methylphenidate <50 <50 ng/mL 7:16 AM EDT [facility] 6 Monoacetyl morphine <10 <10 ng/mL 09/14/2025 7:16 AM EDT [facility] Morphine <50 <50 ng/mL 09/14/2025 7:16 AM EDT [facility] Morphine Glucuronide <50 <50 ng/mL 08/17 7:16 AM EDT [facility] Naloxone <50 <50 ng/mL 09/14/2025 7:16 AM EDT [facility] Naloxone Glucuronide <50 <50 ng/mL 08/17 7:16 AM EDT [facility] Norbuprenorphine <10 <10 ng/mL 09/14/20 7:16 AM EDT [facility] Norbuprenorphine Glucuronide <50 <50 ng/mL 09/14/2025 7:16 AM EDT [facility] Nordiazepam <20 <20 ng/mL 09/14/2025 7:16 AM EDT [facility] Norfentanyl <2 <2 ng/mL 09/14/2025 7:16 AM EDT [facility] Normeperidine <50 <50 ng/mL 09/14/2025 7:16 AM EDT [facility] PCP Quant, Ur <50 <50 ng/mL 09/14/2025 7:16 AM EDT [facility] Phenobarbital <50 <50 ng/mL 09/14/2025 7:16 AM EDT [facility] Oxazepam <20 <20 ng/mL 09/14/2025 7:16 AM EDT [facility] Oxazepam Glucuronide <50 <50 ng/mL 08/17 7:16 AM EDT [facility] Oxycodone <50 <50 ng/mL 09/14/2025 7:16 AM EDT [facility] Oxymorphone <50 <50 ng/mL 09/14/2025 7:16 AM EDT [facility] Oxymorphone Glucuronide <50 <50 ng/mL 09/14/2025 7:16 AM EDT [facility] Secobarbital <50 <50 ng/mL 09/14/2025 7:16 AM EDT [facility] Tramadol <50 <50 ng/mL 09/14/2025 7:16 AM EDT [facility] Temazepam <20 <20 ng/mL 09/14/2025 7:16 AM EDT [facility] Temazepam Glucuronide <50 <50 ng/mL 09/14/2025 7:16 AM EDT [facility] Urine Urine specimen obtained by clean catch procedure / Unknown Non-blood Collection / Unknown 09/12/2025 7:55 AM EDT 09/12/2025 8:51 AM EDT Narrative [facility] - 09/14/2025 7:16 AM EDT This report is intended for [...] laboratory. Test performed by LC-MS/MS at the [facility]. This test was developed and its performance characteristics determined by [facility]. It has not been cleared or approved by the FDA. The laboratory is regulated under CLIA as qualified to perform high-complexity testing. This test is used for clinical purposes. Portia Maguire MD LAB URINE ORDERABLES Nadia l Result Performing Organization Address City/[facility] Co de Phone Number [facility] [address] [place] [address] * Alpha Fetoprotein, Serum (09/12/2025 7:55 AM EDT) Alpha Fetoprotein, Serum <2.3 <10.0 ng/mL 09/12/2025 10:18 AM EDT [facility] Blood Venous blood specimen / Unknown Venipuncture / Unknown 09/12/2025 7:55 AM EDT 09/12/2025 8:46 AM EDT Narrative [facility] - 09/12/2025 10:18 AM EDT Performed by Stacey electrochemiluminescent immunoassay which is traceable to the 1st AFP IRP WHO Reference standard 72/255. Results obtained with different test methods or kits cannot be used interchangeably. Portia Maguire MD LAB BLOOD ORDERABLES Nadia l Result Performing Organization Address [facility] Co de Phone Number [facility] [address] [place] [address] * Nicotine Cotinine Metabolite (09/12/2025 7:55 AM EDT) Only the most recent of2 resultswithin the time period is included. NICOTINE <5 <5 ng/mL 09/14/2025 10:24 AM EDT [facility] Cotinine <5 <5 ng/mL 09/14/2025 10:24 AM EDT [facility] Blood Venous blood specimen / Unknown Venipuncture / Unknown 09/12/2025 7:55 AM EDT 09/12/2025 8:46 AM EDT Narrative [facility] - 09/14/2025 10:24 AM EDT Testing performed by LC-MS/MS at the [facility] Special [facility]/Toxicology Laboratory. This test was developed and its performance characteristics determined by [facility]. This assay has not been cleared by the FDA. The laboratory is regulated under CLIA as qualified to perform high-complexity testing. This test is used for clinical purposes. Portia Maguire MD LAB BLOOD ORDERABLES Nadia crockett Result [facility] [address] [place] [address] * Alcohol Urine (09/12/2025 7:55 AM EDT) Only the most recent of2 resultswithin the time period is included. Alcohol Urine Negative Negative 09/12/2025 1:41 PM EDT [facility] Urine Urine specimen obtained by clean catch procedure / Unknown Non-blood Collection / Unknown 09/12/2025 7:55 AM EDT 09/12/2025 8:51 AM EDT Narrative [facility] - 09/12/2025 1:41 PM EDT The correlation between urine and serum ethanol concentration is highly variable. Test performed by Gas Chromatography at the [facility]. This test was developed and its performance characteristics determined by [facility]. It has not been cleared or approved by the FDA.The laboratory is regulated under CLIA as qualified to perform high-complexity testing. This test is used for clinical purposes only. The correlation between urine and serum ethanol concentration is highly variable. Test performed by Gas Chromatography at the [facility]. This test was developed and its performance characteristics determined by [facility]. It has not been cleared or approved by the FDA.The laboratory is regulated under CLIA as qualified to perform high-complexity testing. This test is used for clinical purposes only. Portia Maguire MD LAB URINE ORDERABLES Nadia crockett Result [facility] [address] [place] [address] * Comprehensive Urine Drug Screening, Qualitative Assay, >= 27 Drug Classes (09/12/2025 7:55 AM EDT) Only the most recent of2 resultswithin the time period is included. Acetaminophen Negative Negative 09/16/2025 3:50 AM EST [facility] Alprazolam Negative Negative 09/16/2025 3:50 AM EST [facility] Amantadine Negative Negative 09/16/2025 3:50 AM EST [facility] Amitriptyline Negative Negative 09/16/2025 3:50 AM EST [facility] Amphetamine Negative Negative 09/16/2025 3:50 AM EST [facility] Atenolol Negative Negative 09/16/2025 3:50 AM EST [facility] Benzoylecgonine Negative Negative 3:50 AM EST [facility] Bisoprolol Negative Negative 09/16/2025 3:50 AM EST [facility] Bupropion Negative Negative 09/16/2025 3:50 AM EST [facility] Butalbital Negative Negative 09/16/2025 3:50 AM EST [facility] Carbamazepine Negative Negative 09/16/2025 3:50 AM EST [facility] Carisoprodol Negative Negative 09/16/2025 3:50 AM EST [facility] Chlorpheniramine Negative Negative 09/16/20 3:50 AM EST [facility] Citalopram Negative Negative 09/16/2025 3:50 AM EST [facility] Clindamycin Negative Negative 09/16/2025 3:50 AM EST [facility] Clonidine Negative Negative 09/16/2025 3:50 AM EST [facility] Clopidogrel / Ticlopidine Negative Negative 09/16/2025 3:50 AM EST [facility] Cocaethylene Negative Negative 09/16/2025 3:50 AM EST [facility] Cocaine Negative Negative 09/16/2025 3:50 AM EST [facility] Codeine Negative Negative 09/16/2025 3:50 AM EST [facility] Cyclobenzaprine Negative Negative 3:50 AM EST [facility] Desvenlafaxine Negative Negative 09/16/2025 3:50 AM EST [facility] Dextromethorphan Negative Negative 09/16/20 3:50 AM EST [facility] Diazepam Negative Negative 09/16/2025 3:50 AM EST [facility] Diltiazem Negative Negative 09/16/2025 3:50 AM EST [facility] Diphenhydramine Negative Negative 3:50 AM EST [facility] Doxepine Negative Negative 09/16/2025 3:50 AM EST [facility] Doxylamine Negative Negative 09/16/2025 3:50 AM EST [facility] EDDP-Methadone metabolite Negative Negative 09/16/2025 3:50 AM EST [facility] Fentanyl Negative Negative 09/16/2025 3:50 AM EST [facility] Fluconazole Negative Negative 09/16/2025 3:50 AM EST [facility] Fluoxetine Negative Negative 09/16/2025 3:50 AM EST [facility] Guaifenesin Negative Negative 09/16/2025 3:50 AM EST [facility] Haloperidol Negative Negative 09/16/2025 3:50 AM EST [facility] Heroin/6-MARY Negative Negative 09/16/2025 3:50 AM EST [facility] Hydrocodone Negative Negative 09/16/2025 3:50 AM EST [facility] Hydroxyzine / Cetirizine metabolite Negative Negative 09/16/2025 3:50 AM EST [facility] Ibuprofen Negative Negative 09/16/2025 3:50 AM EST [facility] Imipramine Negative Negative 09/16/2025 3:50 AM EST [facility] Ketamine Negative Negative 09/16/2025 3:50 AM EST [facility] Labetolol Negative Negative 09/16/2025 3:50 AM EST [facility] Lamotrigine Negative Negative 09/16/2025 3:50 AM EST [facility] Levetiracetam Negative Negative 09/16/2025 3:50 AM EST [facility] Lidocaine Negative Negative 09/16/2025 3:50 AM EST [facility] MDA Negative Negative 09/16/2025 3:50 AM EST [facility] MDMA Negative Negative 09/16/2025 3:50 AM EST [facility] Memantine Negative Negative 09/16/2025 3:50 AM EST [facility] Meperidine Negative Negative 09/16/2025 3:50 AM EST [facility] Meprobamate Negative Negative 09/16/2025 3:50 AM EST [facility] Metaxalone Negative Negative 09/16/2025 3:50 AM EST [facility] Methamphetamine Negative Negative 3:50 AM EST [facility] Methocarbamol Negative Negative 09/16/2025 3:50 AM EST [facility] Methylecgonine Negative Negative 09/16/2025 3:50 AM EST [facility] Metoclopramide Negative Negative 09/16/2025 3:50 AM EST [facility] Metoprolol Negative Negative 09/16/2025 3:50 AM EST [facility] Metronidazole Negative Negative 09/16/2025 3:50 AM EST [facility] Midazolam Negative Negative 09/16/2025 3:50 AM EST [facility] Midazolam Metabolite Negative Negative 12/2024 3:50 AM EST [facility] Mirtazapine Negative Negative 09/16/2025 3:50 AM EST [facility] Misc Test Result Negative Negative 09/16/20 3:50 AM EST [facility] Naproxen Negative Negative 09/16/2025 3:50 AM EST [facility] Nefazodone Negative Negative 09/16/2025 3:50 AM EST [facility] Norfentanyl Negative Negative 09/16/2025 3:50 AM EST [facility] Nortriptyline Negative Negative 09/16/2025 3:50 AM EST [facility] Ordanstron Negative Negative 09/16/2025 3:50 AM EST [facility] Oxcarbazepine Negative Negative 09/16/2025 3:50 AM EST [facility] Oxycodone Negative Negative 09/16/2025 3:50 AM EST [facility] Paroxethine Negative Negative 09/16/2025 3:50 AM EST [facility] Phenobarbital Negative Negative 09/16/2025 3:50 AM EST [facility] Phentermine Negative Negative 09/16/2025 3:50 AM EST [facility] Phenytoin Negative Negative 09/16/2025 3:50 AM EST [facility] Primidone Negative Negative 09/16/2025 3:50 AM EST [facility] Promethazine Negative Negative 09/16/2025 3:50 AM EST [facility] Propofol Negative Negative 09/16/2025 3:50 AM EST [facility] Propranolol Negative Negative 09/16/2025 3:50 AM EST [facility] Quetiapine Negative Negative 09/16/2025 3:50 AM EST [facility] Quinine Negative Negative 09/16/2025 3:50 AM EST [facility] Rantidine Negative Negative 09/16/2025 3:50 AM EST [facility] Sertraline Negative Negative 09/16/2025 3:50 AM EST [facility] Spironolactone Negative Negative 09/16/2025 3:50 AM EST [facility] Tizanidine Negative Negative 09/16/2025 3:50 AM EST [facility] Topiramate Negative Negative 09/16/2025 3:50 AM EST [facility] Tramadol Negative Negative 09/16/2025 3:50 AM EST [facility] Trazadone/ Trazadone metabolite Negative Negative 09/16/2025 3:50 AM EST [facility] Trimethoprim Negative Negative 09/16/2025 3:50 AM EST [facility] Valproic Acid Negative Negative 09/16/2025 3:50 AM EST [facility] Venlafaxine Negative Negative 09/16/2025 3:50 AM EST [facility] Verapamil Negative Negative 09/16/2025 3:50 AM EST [facility] Zolpidem Negative Negative 09/16/2025 3:50 AM EST [facility] Xylazine Negative Negative 09/16/2025 3:50 AM EST [facility] Urine Urine specimen obtained by clean catch procedure / Unknown Non-blood Collection / Unknown 09/12/2025 7:55 AM EDT 09/12/2025 8:51 AM EDT Portia Maguire MD LAB URINE ORDERABLES Nadia l Result Performing Organization Address City/State/[facility] Co de Phone Number [facility] [address] [place] [address] * (ABNORMAL) Protime-INR (09/12/2025 7:55 AM EDT) Only the most recent of10 resultswithin the time period is included. Prothrombin Time 24.0(H) 12.0 - 14.3 sec LAB COAGULATION METHOD 09/12/2025 9:03 AM EDT [facility] INR 2.1(H) 0.9 - 1.1 LAB COAGULATION METHOD 09/12/2025 9:03 AM EDT [facility] Blood Venous blood specimen / Unknown Venipuncture / Unknown 09/12/2025 7:55 AM EDT 09/12/2025 8:46 AM EDT Narrative [facility] - 09/12/2025 9:03 AM EDT OPTIMAL INR RANGES FOR PATIENT ON ORAL ANTICOAGULANT THERAPY Prevention of venous thromboembolism INR 2.0 to 3.0 In patients with heart disease: Atrial fibrillation INR 2.0 to 3.0 Valvular heart disease INR 2.0 to 3.0 Tissue heart valves INR 2.0 to 3.0 Mechanical prosthetic valves INR 2.5 to 3.5 Prevention of recurrent OR INR 2.5 to 3.5 Portia Maguire MD LAB BLOOD ORDERABLES Nadia l Result [facility] [address] [place] [address] * (ABNORMAL) CBC w/o differential (09/12/2025 7:55 AM EDT) Only the most recent of9 resultswithin the time period is included. WBC Count 3.90 3.70 - 10.30 10*3/uL LAB HEMATOLOGY METHOD 09/12/2025 10:12 AM EDT [facility] RBC Count 3.06(L) 4.60 - 6.10 10*6/uL LAB HEMATOLOGY METHOD 09/12/2025 10:12 AM EDT [facility] HGB 10.3(L) 13.7 - 17.5 g/dL LAB HEMATOLOGY METHOD 09/12/2025 10:12 AM EDT [facility] HCT 31.9(L) 40.0 - 51.0 % LAB HEMATOLOGY METHOD 09/12/2025 10:12 AM EDT [facility] Platelet Count 57(L) 155 - 369 10*3/uL LAB HEMATOLOGY METHOD 09/12/2025 10:12 AM EDT [facility] MCV 104(H) 79 - 98 fL LAB HEMATOLOGY METHOD 09/12/2025 10:12 AM EDT [facility] MCH 33.7(H) 26.0 - 32.0 pg LAB HEMATOLOGY METHOD 09/12/2025 10:12 AM EDT [facility] MCHC 32.3 30.7 - 35.5 g/dL LAB HEMATOLOGY METHOD 09/12/2025 10:12 AM EDT [facility] RDW 17.3(H) 11.5 - 14.5 % LAB HEMATOLOGY METHOD 09/12/2025 10:12 AM EDT [facility] MPV 10.5 8.8 - 12.5 fL LAB HEMATOLOGY METHOD 09/12/2025 10:12 AM EDT [facility] nRBC 0.0 <=0.0 per 100 WBCs LAB HEMATOLOGY METHOD 09/12/2025 10:12 AM EDT [facility] Blood Venous blood specimen / Unknown Venipuncture / Unknown 09/12/2025 7:55 AM EDT 09/12/2025 8:51 AM EDT us Portia Maguire MD LAB BLOOD ORDERABLES Nadia bon Result [facility] [address] [place] [address] * (ABNORMAL) Comprehensive metabolic panel (09/12/2025 7:55 AM EDT) Only the most recent of9 resultswithin the time period is included. Glucose, Plasma 96 74 - 99 mg/dL 09/12/2025 9:16 AM EDT [facility] BUN, Plasma 11 8 - 23 mg/dL 09/12/2025 9:16 AM EDT [facility] Creatinine, Plasma 0.88 0.70 - 1.20 mg/dL 09/12/2025 9:16 AM EDT [facility] BUN/Creatinine Ratio 13 09/12/2025 9:16 AM EDT [facility] Sodium, Plasma 139 136 - 145 mmol/L 09/12/2025 9:16 AM EDT [facility] Potassium, Plasma 3.8 3.6 - 4.9 mmol/L 09/12/2025 9:16 AM EDT [facility] Chloride, Plasma 109(H) 97 - 107 mmol/L 09/12/2025 9:16 AM EDT [facility] CO2, Plasma 25 22 - 29 mmol/L 09/12/2025 9:16 AM EDT [facility] Anion Gap 5(L) 6 - 16 mmol/L 09/12/2025 9:16 AM EDT [facility] Total Calcium, Plasma 8.1(L) 8.9 - 10.2 mg/dL 09/12/2025 9:16 AM EDT [facility] Total Protein 5.9(L) 6.3 - 7.9 g/dL 09/12/2025 9:16 AM EDT [facility] Albumin, Plasma 2.1(L) 3.5 - 5.2 g/dL 09/12/2025 9:16 AM EDT [facility] AST, Plasma 40 10 - 50 U/L 09/12/2025 9:16 AM EDT [facility] ALT, Plasma 32 10 - 50 U/L 09/12/2025 9:16 AM EDT [facility] Alkaline Phosphatase, Plasma 230(H) 40 - 115 U/L 09/12/2025 9:16 AM EDT [facility] Total Bilirubin, Plasma 3.7(H) 0.2 - 1.1 mg/dL 09/12/2025 9:16 AM EDT [facility] eGFRcr 96.0 mL/min/1.7 3m*2 09/12/2025 9:16 AM EDT [facility] Comment:Reported eGFRcr in m L/min/1.73m2 is based the CKD-EPI 2020 equation that does not use a race coefficient. Blood Venous blood specimen / Unknown Venipuncture / Unknown 09/12/2025 7:55 AM EDT 09/12/2025 8:46 AM EDT Result [facility] Portia Maguire MD LAB BLOOD ORDERABLES Nadia l Result [facility] [address] [place] [address] * COMPLETE METABOLIC PROFILE (CMP) (08/29/2025 12:13 PM EDT) [facility] Provider LAB BLOOD ORDERABLES Final R esult * CBC and Differential (08/29/2025 11:11 AM EDT) Blood Venous blood specimen / Unknown [facility] Provider LAB BLOOD ORDERABLES Final R esult * HIV 1 & 2 Antibody/Antigen Screen (06/14/2025 6:31 PM EDT) HIV 1 & 2 Antibody/Antigen Screen Non Reactive Non Reactive 06/14/2025 7:45 PM EDT [facility] Comment:Screening for HIV 1 & 2 antibodies, and P24 antigen is NONREACTIVE. No confirmatory testing is required. Blood Venous blood specimen / Unknown Venipuncture / Unknown 06/14/2025 6:31 PM EDT 06/14/2025 7:05 PM EDT us Luis Angel Bee MD LAB BLOOD ORDERABLES Nadia l Result [facility] [address] [place] [address] * Hepatitis C Antibody (06/14/2025 6:31 PM EDT) Hepatitis C Antibody Negative Negative 06/14/2025 7:45 PM EDT [facility] Blood Venous blood specimen / Unknown Venipuncture / Unknown 06/14/2025 6:31 PM EDT 06/14/2025 7:05 PM EDT us Luis Angel Bee MD LAB BLOOD ORDERABLES Nadia l Result Performing Organization Address City/[facility] Co de Phone Number [facility] [address] [place] [address] * Dexa Bone Density (06/08/2025 8:35 AM EDT) Anatomical Region Laterality Modality L-spine Radiographic Liseth ging Narrative 06/17/2025 10:07 PM EDT [facility] [address] [place] [address] DXA Bone Densitometry Report: [06/08/2025] BMD test performed using the Primary Data DXA System (analysis version: 14.10) manufactured by [employer]. REFERRING PROVIDER: Dr. Moustapha Katz MD CLINICAL [...] Final Resul t from Last 3 Months or Most Recently Relevant to Health Maintenance Insurance [employer] [id number] ANTHEM ANTHEM Advance Directives Documents on File Type Date Recorded Patient Svp Monetization Expl anation Power of Oncology Radiation Physician 07/11/2025 POA / Trudy garcia Will Care Teams Returning Officer Relationship Specialty Start Date End Date Chris Medel MD [address] [place] [address] PCP - General 03/14/25 Ruma Hernández APRN [address] [place] [address] Referring Physician Gastroenterology 07/30/23
--- OUTSIDE RECORDS SUMMARY | 2025-09-18 18:38 | XMS_ITS | Encounter Summary ---
Author Organization [facility] Address [address] [place] [address] Care Team Providers Care Map Compiler Name Role Phone System, Provider Not In [...] release of HIV test results or diagnoses. [id number] Health Encounter Details Date Type Department Care Team (Late st Contact Info) Description 09/11/2025 Telephone [facility] Liver Transplant at [address] [phone] Chapito Alcantar, SILVIO Social History Tobacco Use Types Packs/Day Years [...] as of this encounter Progress Notes * Nina Hawkins MA - 09/11/2025 4:15 PM EDT Spouse called expressing second thoughts about the MRI scheduled for tomorrow, which was added to patient???s routine appointment. She stated the patient previously had a bad experience with contrast during his last scan and does not want him to go through it again if it is not necessary or beneficial. She is requesting guidance from CC SILVIO Montenegro on whether the MRI should proceed. * Chapito Alcantar RN - 09/11/2025 3:27 PM EDT Called and spoke with patient's spouse about today's committee review. Asked them to get a new dental clearance form signed by the dentist and to review the organ acceptance sheet. Will follow up with patient and spouse once insurance authorization is received. documented in this encounter Plan of Treatment Not on file documented as of this encounter Visit Diagnoses Not on filedocumented in this encounter Care Teams Map Compiler Relationship Specialty Start Date End Date System, Provider Not In PCP - General 09/10/25 documented as of this encounter
--- OUTSIDE RECORDS SUMMARY | 2025-09-18 18:38 | XMS_ITS | Encounter Summary ---
Author Organization [facility] Address [address] [place] [address] Care Team Providers Care Clinical Laboratory Technologist Name Role Phone System, Provider Not [...] release of HIV test results or diagnoses. [id number] Health Encounter Details Date Type Department Care Team (Late st Contact Info) Description 09/17/2025 Telephone [facility] at [facility] 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 Ivermectin 7 pills daily for 2 doses sent to his pharmacy. documented in this encounter Plan of Treatment Not on file documented as of this encounter Visit Diagnoses Not on filedocumented in this encounter Care Teams Clinical Laboratory Technologist Relationship Specialty Start Date End Date System, Provider Not In PCP - General 09/10/25 documented as of this encounter
--- OUTSIDE RECORDS SUMMARY | 2025-09-18 18:38 | XMS_ITS | Encounter Summary ---
Author Organization [facility] Address [address] [place] [address] Care Team Providers Care Research Assoc Name Role Phone Unknown, Attending Provider Primary [...] release of HIV test results or diagnoses. [id number] Reason for Referral * Imaging/Cardiovascular Scan (Routine) - New Request Specialty Diagnoses / Procedures Referred By Gianna reyes Referred To Contact Radiology Procedures CT Abdomen and or Pelvis Outside Exam System, Provider Not In [address] [address] Referral ID Status Reason Start Date Expiration Date V isits Requested Visits Authorized [id number] New Request 09/08/2025 03/07/2026 1 1 Encounter Details Date Type Department Care Team (Late st Contact Info) Description 03/14/2025 Orders Only EXTERNAL PROV RESULTS [address] [place] [address] System, Provider Not In Social History Tobacco [...] on filedocumented in this encounter Care Teams Research Assoc Relationship Specialty Start Date End Date Unknown, Attending Provider PCP - General 08/29/2508/16 System, Provider Not In PCP - General 09/10/25 documented as of this encounter
--- OUTSIDE RECORDS SUMMARY | 2025-09-18 18:38 | XMS_ITS | Data Portability ---
Author Organization ID - [place] - [place] [facility]ULIANA [facility]ie [facility] Address [address] [place] [id number] Assessment Encounter Date Assessment Date Assessment LastModified [...] in punctuate muhammad and or spelling, etc. [email or web address] Not available 2023 11:56:25 Plan of Treatment [...] WBC 4.1 K/uL 4.0-10 .5 Not Available [facility] ([facility]) [address] [place], [address], 02/10/2023 10:08:24 02/11/20 23 02/10/2023 CBC AUTO NO DIFF (HEMO GRAM) RBC 4.0 M/mm3 4.7-6. 1 low Not Available [facility] ([facility]) [address] [place], [address], 02/10/2023 10:08:24 02/11/20 23 02/10/2023 CBC AUTO NO DIFF (HEMO GRAM) HGB 13.8 gm/dL 13.5-1 8.0 Not Available [facility] ([facility]) [address] [facility], [place], [address], 02/10/2023 10:08:24 02/11/20 23 02/10/2023 CBC AUTO NO DIFF (HEMO GRAM) HCT 40.3 % 42.0-5 2.0 low Not Available [facility] ([facility]) [address] [place], [address], 02/10/2023 10:08:24 02/11/20 23 02/10/2023 CBC AUTO NO DIFF (HEMO GRAM) MCV 101.8 fL 78-100 high Not Available [facility] ([facility]) [address] [place], [address], 02/10/2023 10:08:24 02/11/20 23 02/10/2023 CBC AUTO NO DIFF (HEMO GRAM) MCH 34.8 pg 27-31 high Not Available [facility] ([facility]) [address], [place], [address], 02/10/2023 10:08:24 02/11/20 23 02/10/2023 CBC AUTO NO DIFF (HEMO GRAM) MCHC 34.2 g/dL 32-36 Not Available [facility] ([facility]) [address], [place], [address], 02/10/2023 10:08:24 02/11/20 23 02/10/2023 CBC AUTO NO DIFF (HEMO GRAM) RDW 15.9 % 11.5-1 4.0 high Not Available [facility] ([facility]) [address], [place], [address], 02/10/2023 10:08:24 02/11/20 23 02/10/2023 CBC AUTO NO DIFF (HEMO GRAM) platelet count 71 K/uL 150-45 0 low Not Available [facility] ([facility]) [address] [facility], [place], [address], 02/10/2023 10:08:24 02/11/20 23 02/10/2023 CBC AUTO NO DIFF (HEMO GRAM) manual differential NO Not Available [facility] ([facility]) [address] [place], [address], 02/10/2023 10:08:24 02/11/20 23 02/10/2023 COMP METAB OLIC PANEL sodium 139 mmol/ L 136-14 5 Not Available [facility] ([facility]) [address] [place], [address], 02/10/2023 10:40:35 02/11/20 23 02/10/2023 COMP METAB OLIC PANEL potassium 3.7 mmol/ L 3.6-5. 0 Not Available [facility] ([facility]) [address], [place], [address], 02/10/2023 10:40:35 02/11/20 23 02/10/2023 COMP METAB OLIC PANEL chloride 105 mmol/ L 98-107 Not Available [facility] ([facility]) [address], [place], [address], 02/10/2023 10:40:35 02/11/20 23 02/10/2023 COMP METAB OLIC PANEL carbon dioxide 26.3 mmol/ L 21.0-3 2.0 Not Available [facility] ([facility]) [address], [place], [address], 02/10/2023 10:40:35 02/11/20 23 02/10/2023 COMP METAB OLIC PANEL anion gap 11.4 Not Available [facility] ([facility]) [address] , [place], [address], 02/10/2023 10:40:35 02/11/20 23 02/10/2023 COMP METAB OLIC PANEL glucose 108 mg/dL 70-120 Not Available [facility] ([facility]) [address] , [place], [address], 02/10/2023 10:40:35 02/11/20 23 02/10/2023 COMP METAB OLIC PANEL BUN 5 mg/dL 7-18 low Not Available [facility] ([facility]) [address] , [place], [address], 02/10/2023 10:40:35 02/11/20 23 02/10/2023 COMP METAB OLIC PANEL creatinine 0.7 mg/dL 0.6-1. 3 Not Available [facility] ([facility]) [address] , [place], [address], 02/10/2023 10:40:35 02/11/20 23 02/10/2023 COMP METAB OLIC PANEL glomerular filtration rate >60 mlper min 60- Not Available [facility] ([facility]) [address], [place], [address], 02/10/2023 10:40:35 02/11/20 23 02/10/2023 COMP METAB OLIC PANEL total protein 7.4 g/dL 6.4-8. 2 Not Available [facility] ([facility]) [address], [place], [address], 02/10/2023 10:40:35 02/11/20 23 02/10/2023 COMP METAB OLIC PANEL albumin 2.5 g/dL 3.4-5. 0 low Not Available [facility] ([facility]) [address], [place], [address], 02/10/2023 10:40:35 02/11/20 23 02/10/2023 COMP METAB OLIC PANEL globulin 4.9 Not Available [facility] ([facility]) [address], [place], [address], 02/10/2023 10:40:35 02/11/20 23 02/10/2023 COMP METAB OLIC PANEL alb/glob ratio 0.5 0.7-2 low Not Available [facility] ([facility]) [address], [place], [address], 02/10/2023 10:40:35 02/11/20 23 02/10/2023 COMP METAB OLIC PANEL calcium 8.1 mg/dL 8.5-10 .5 low Not Available [facility] ([facility]) [address] , [place], [address], 02/10/2023 10:40:35 02/11/20 23 02/10/2023 COMP METAB OLIC PANEL bilirubin total 4.00 mg/dL 0.10-1 .00 high Not Available [facility] ([facility]) [address] , [place], [address], 02/10/2023 10:40:35 02/11/20 23 02/10/2023 COMP METAB OLIC PANEL AST (SGOT) 75 U/L 0-37 high Not Available [facility] ([facility]) [address], [place], [address], 02/10/2023 10:40:35 02/11/20 23 02/10/2023 COMP METAB OLIC PANEL ALT (SGPT) 38 U/L 0-65 Not Available [facility] ([facility]) [address], [place], [address], 02/10/2023 10:40:35 02/11/20 23 02/10/2023 COMP METAB OLIC PANEL alk phosphatase 334 U/L 46-116 high Not Available [facility] ([facility]) [address], [place], [address], 02/10/2023 10:40:35 Result Notes None recorded. Procedures Surgical History Date Name Laterality Status Provider Name and Address Organization Details Recorded Time Hernia Repair completed Rafa CARLOS [facility] [place] 2023 11:10:15 Imaging Results None recorded. Procedure [...] Updated DateTime 2023 170.18 cm 30.2 kg/m2 53427.33 g 77 /min 154/94 mm[Hg] Rafa CARLOS [facility] [place] 2023 11:23:09 Social History Question Answer Notes LastModified by Organizat ion Details LastModified Time Tobacco Smoking Status Former Smoker TERRANCE Quintana [facility] [place] 2023 11:10:32 When Did You Quit Smoking? 6-10yearssin [facility] [place] Information not available 2023 Sex: Unknown Functional Status None recorded. Mental Status None recorded. Family History Nothing Reported. Medical History No medical history recorded. Past Encounters Encounter ID Performer Location Encounter Start Date Encounter Closed Date Diagnosis/Indication Diagnosis SNOMED-CT Code Diagnosis ICD10 Code Diagnosis IMO Codes Diagnosis Note [id number] Jeffrey Chu MD [facility] Bariatric s and Adv Surg [address] [facility] [address] [place] [address] 2023 10:52:58 2023 11:57:37 Left inguinal hernia 773056004 K40.90 Umbilical hernia [id number] K42.9 Health Concerns Section Related Observation LastModified by Organization Detai ls LastModified Time None Recorded Concern Status LastModified by Organization Details LastModified Time None Recorded Advance Directives Directive None Recorded Payers Insurance Date Sequence Insurance Name Policy Number Policy Mcdaniel Covered Member ID Mcdaniel Member ID Guarantor Name 2023 1 [employer] David Pop [id number] David Pop 02/12/2023 1 [employer] (POS) David Pop [id number] David Pop
--- OUTSIDE RECORDS SUMMARY | 2025-09-18 18:38 | XMS_ITS | Encounter Summary ---
Author Organization [facility] Address [address] [place] [address] Care Team Providers Care Marine Service Manager Name Role Phone System, Provider Not [...] release of HIV test results or diagnoses. [id number] Health Encounter Details Date Type Department Care Team (Late st Contact Info) Description 09/13/2025 Chart Note [facility] Liver Transplant at [address] [address] Chapito Alcantar RN Multi-disciplinary Hepatobiliary Case Conference Review: Social History Tobacco Use Types Packs/Day Years [...] Progress Notes * Chapito Alcantar RN - 09/13/2025 7:25 AM EDT Multi-disciplinary Hepatobiliary Case Conference Review: David Pop is a 65 y.o.male reviewed today at the Hepatobiliary Multidisciplinary Tumor Board. The patient's history, imaging and pathology were reviewed today in the presence of representatives from Transplant Surgery, Surgical Oncology, Medical Oncology, Radiation Oncology, Diagnostic Radiology, Interventional Radiology and Pathology. 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 Nugent. Reviewed the following imaging: CT ABD 03/14/2025. 65 y.o male, currently approved for OLT listing. Please review portal vein from recent abdominal imaging. The recommendations from this multidisciplinary discussion was for: PVT with cavernous changes noted. Surgical options discussed. Proceed with listing. *This document represents the recommendations of the practitioners in attendance as of the date of this conference. These recommendations do not imply a patient consultation, nor do they dictate an agreed treatment plan, but rather are to be used as a resource for practitioners when determining thefinal treatment plan. The responsibility for the final treatment plan and the ultimate standard care remains with the treating physicians. documented in this encounter Plan of Treatment Not on file documented as of this encounter Visit Diagnoses Not on filedocumented in this encounter Care Teams Marine Service Manager Relationship Specialty Start Date End Date System, Provider Not In PCP - General 09/10/25 documented as of this encounter
--- OUTSIDE RECORDS SUMMARY | 2025-09-18 18:38 | XMS_ITS | Encounter Summary ---
Author Organization Healthcare Address [address] [place] [address] Care Team Providers Care Hotel Room Attendant Name Role Phone Ruma Hernández INSPECTOR GRAIN MILL PRODUCTS Unavailable [phone] Chris Medel MD Primary Care Provider [phone] Encounter Details Date Type Department Care Team (Late st Contact Info) Description 07/19/2025 Results Follow-Up [facility] Transplant Center [address] [place] [address] Meaghan Le, RN [facility] LIVER [id number] [address] [place] [address] Social History Tobacco Use Types [...] do you attend [facility] or advent services? More than 4 times [...] Not hard at all 06/15/2025 [facility] of Occupat ional [facility] - Occupational Stress Questionnaire Answer Date [...] drink first t luisa in the morning (EYE-COILER) to steady your nerves or to get rid of a hangover? 0 06/14/2025 CAGE Questionnaire Score 0 025 Utilities Answer Date Recorded In the past 12 months has e electric, gas, oil, or water [employer] threatened to shut off services in your [...] [facility], [address] [place] [address] Suhail Brock MD [address] [place] [address] 10/18/2025 4:20 PM EST Office Visit [facility] [address] [facility], [address] [place] [address] Moustapha Katz MD [address] [facility] [address] [place] [address] 12/12/2025 8:30 AM EST Clinical Support [facility] Transplant [place] [address] [facility] [address] [place] [address] 12/12/2025 10:00 AM EST Office Visit [facility] [address] [facility] [address] [place] [address] Portia Maguire MD [address] [facility] [address] [place] [address] documented as of this encounter [...] documented as of this encounter Care Teams Hotel Room Attendant Relationship Specialty Start Date End Date Chris Medel MD [address] [place] [address] PCP - General 03/14/25 Ruma Hernández APRN [address] [facility] 202 [place] [address] Referring Physician Gastroenterology 07/30/23 documented as of this encounter
--- OUTSIDE RECORDS SUMMARY | 2025-09-18 18:39 | XMS_ITS | Encounter Summary ---
Author Organization Healthcare Address [address] [place] [address] Care Team Providers Care Automotive Fuel Systems Converter Name Role Phone Urban Brantley DO Primary Care Provider [phone] Ruma Hernández RECORDS CLERK Unavailable [phone] Chris Medel MD Primary Care Provider [phone] Encounter Details Date Type Department Care Team (Late Contact Info) Description 03/22/2023 Orders Only External Location [address] [place] [address] Provider, External Social History Tobacco Use Types [...] Department Care Team (Late Contact Info) Description 10/03/2025 12:45 PM EST Office Visit Medical Office Building Urology [address] [facility], [address] [place] [address] Suhail Brock MD [address] [place] [address] 10/18/2025 4:20 PM EST Office Visit [facility] Mineral Metabolism [address] , [address] [place] [address] Moustapha Katz MD [address] [place] [address] 12/12/2025 8:30 AM EST Clinical Support [facility] Transplant [place] [address] [facility] [address] [place] [address] 12/12/2025 10:00 AM EST Office Visit [facility] Transplant [place] [address] [facility] [address] [place] [address] Portia Maguire MD [address] [facility] [address] [place] [address] documented as of this encounter [...] as of this encounter Care Teams Automotive Fuel Systems Converter Relationship Specialty Start Date End Date Urban Brantley DO [address] [place] [address] PCP - General 07/30/23 03/13/25 Chris Medel MD [address] [place] [address] PCP - General 03/14/25 Ruma Hernández APRN [address] [facility] 202 [place], [place] [address] Referring Physician Gastroenterology 07/30/23 documented as of this encounter
--- OUTSIDE RECORDS SUMMARY | 2025-09-18 18:39 | XMS_ITS | Encounter Summary ---
Author Organization Healthcare Address [address] [place] [address] Care Team Providers Care Quarter Section Ironer Name Role Phone Ruma Hernández SEASONAL TAX PREPARER Unavailable [phone] Chris Medel MD Primary Care Provider [phone] Encounter Details Date Type Department Care Team (Late st Contact Info) Description 06/29/2025 Results Follow-Up [facility] Transplant Center [address] [place] [address] Meaghan Le, RN [facility] LIVER [id number] [address] [place] [address] Social History Tobacco Use Types [...] 02/19/2025 How often do you attend [facility] or uatsdin services? More than 4 times [...] and heating? Not hard at all 06/15/2025 [facility] of Occupat ional [facility] - Occupational Stress Questionnaire Answer Date [...] first t luisa in the morning (EYE-DRY PAN CHARGER) to steady your nerves or to get rid of a hangover? 0 06/14/2025 CAGE Questionnaire Score 0 025 Utilities Answer Date Recorded In the past 12 months has [employer], gas, oil, or water [employer] threatened to shut off services in your [...] Upcoming Encounters Date Type Department Care Team ([facility] st Contact Info) Description 10/03/2025 12:45 PM EST Office Visit Medical Office Building Urology [address] [facility], [address] [place] [address] Suhail Brock MD [address] [place] [facility] [address] [place] [address] 10/18/2025 4:20 PM EST Office Visit [facility] [employer] [facility] Bone [facility] Mineral Metabolism [address] [facility], [address] [place] [address] Moustapha Katz MD [address] [facility] 401 [place] [address] 12/12/2025 8:30 AM EST Clinical Support [facility] Transplant Center [address] [place] [address] 12/12/2025 10:00 AM EST Office Visit [facility] Transplant Center [address] [place] [address] Portia Maguire MD [address] [place] [address] documented as of this encounter Visit Diagnoses [...] documented as of this encounter Care Teams Quarter Section Ironer Relationship Specialty Start Date End Date Chris Medel MD [address] [place] [address] PCP - General 03/14/25 Ruma Hernández APRN [address] [address] Referring Physician Gastroenterology 07/30/23 documented as of this encounter
--- OUTSIDE RECORDS SUMMARY | 2025-09-18 18:39 | XMS_ITS | Encounter Summary ---
Author Organization [facility] Address [address] [place] [address] Care Team Providers Care Continuous Mining Machine Coal Miner Name Role Phone Unavailable Primary Care Provider [...] release of HIV test results or diagnoses. [id number] Health Encounter Details Date Type Department Care Team (Late st Contact Info) Description 08/01/2025 Chart Note [facility] Liver Transplant at [address] [address] Chapito Alcantar RN Referral for liver transplant [...] referral will be entered and sent to [employer] for INS approval. Patient currently listed at . Work up complete. Will have patient scheduled with ID and anesthesia during first visit. Needs a chest CT. No barriers upon review. documented in this encounter Plan of Treatment Not on file documented as of this encounter Visit Diagnoses Not on filedocumented in this encounter
--- OUTSIDE RECORDS SUMMARY | 2025-09-18 18:39 | XMS_ITS | Encounter Summary ---
Author Organization Healthcare Address [address] [place] [address] Care Team Providers Care Physician Industrial Name Role Phone Ruma Hernández PUMP HOUSE OPERATOR Unavailable [phone] Chris Medel MD Primary Care Provider [phone] Encounter Details Date Type Department Care Team (Late st Contact Info) Description 08/29/2025 Orders Only [facility] [address], [address] [place] [address] Provider, [place] [address] [place] [address] Social History Tobacco Use Types Packs/Day Years [...] do you attend [facility] or buddhism services? More than 4 times per year 02/19/2025 Do you belong to any clubs o r organizations such as quaker groups, unions, [employer] or athletic groups, or school groups? Yes [...] How often do you attend chur or buddhism services? More than 4 times [...] at all 06/15/2025 [facility] - Occupational Stress Questionnaire Answer [...] drink first t luisa in the morning (EYE-WAVE GUIDE ASSEMBLER) to steady your nerves or to get rid of a hangover? 0 06/14/2025 CAGE Questionnaire Score 0 025 Utilities Answer Date Recorded In the past 12 months has e Known, gas, oil, or water [employer] threatened to shut off services in your [...] E [facility], [address] [place] [address] Suhail Brock MD [address] [facility] [address] [place] [address] 10/18/2025 4:20 PM EST Office Visit [facility] [address] [facility], [address] [place] [address] Moustapha Katz MD [address] [facility] [address] [place] [address] 12/12/2025 8:30 AM EST Clinical Support [facility] Transplant [place] [address] [place] [address] 12/12/2025 10:00 AM EST Office Visit [facility] Transplant [place] [address] [facility] [address] [place] [address] Portia Maguire MD [address] [place] [address] documented as of this encounter Procedures Procedure Name Priority Date/Time Associated Diagnosis Comments COMPLETE METABOLIC PROFILE (CMP) Routine 08/29/2025 12:13 PM EDT PROTHROMBIN TIME(PT) / INR Routine 08/29/2025 11:11 AM EDT CBC WITH AUTO DIFFERENTIAL Routine 08/29/2025 11:11 AM EDT documented in this encounter Results * COMPLETE METABOLIC PROFILE (CMP) (08/29/2025 12:13 PM EDT) [facility] Provider LAB BLOOD ORDERABLES Final R esult * Prothrombin Time/INR (08/29/2025 11:11 AM EDT) Blood Venous blood specimen / Unknown [facility] Provider LAB BLOOD ORDERABLES Final R esult * CBC and Differential (08/29/2025 11:11 AM EDT) Blood Venous blood specimen / Unknown [facility] Provider LAB BLOOD ORDERABLES Final R esult documented in this [...] as of this encounter Care Teams Physician Industrial Relationship Specialty Start Date End Date Chris Medel MD [address] [place] [address] PCP - General 03/14/25 Ruma Hernández APRN [address] [place] [address] Referring Physician Gastroenterology 07/30/23 documented as of this encounter
--- OUTSIDE RECORDS SUMMARY | 2025-09-18 18:39 | XMS_ITS | Encounter Summary ---
Author Organization Healthcare Address [address] [place] [address] Care Team Providers Care Geoscience Specialist Name Role Phone Ruma Hernández ROW BOSS Unavailable [phone] Chris Medel MD Primary Care Provider [phone] Encounter Details Date Type Department Care Team (Late st Contact Info) Description 06/21/2025 Results Follow-Up [facility] Transplant Center [address] [place] [address] Meaghan Le, RN [facility] LIVER [id number] [address] [place] [address] Social History Tobacco Use Types [...] week 02/19/2025 How often do you attend [facility] or church services? More than 4 times [...] and heating? Not hard at all 06/15/2025 [facility] of Occupat ional [facility] [...] any time in the past 12 m [facility], were you homeless or [...] drink first t luisa in the morning (EYE-HEAVY COIL WINDER) to steady your nerves or to get rid of a hangover? 0 06/14/2025 CAGE Questionnaire Score 0 025 Utilities Answer Date Recorded In the past 12 months has [employer] electric, gas, oil, or water [employer] threatened to shut off services in your [...] going to have [facility] at [facility]. He is only on 40/100 - if they have to drain him do you want to increase his diuretics? documented in this encounter Plan of Treatment Upcoming Encounters Date Type Department Care Team (Late st Contact Info) Description 10/03/2025 12:45 PM EST Office Visit Medical Office Building Urology [address] , [address] [place] [address] Suhail Brock MD [address] [facility] [address] [place] [address] 10/18/2025 4:20 PM EST Office Visit Professional [facility] Bone & Mineral Metabolism [address] , [address] [place] [address] Moustapha Katz MD [address] [facility] [address] [place] [address] 12/12/2025 8:30 AM EST Clinical Support [facility] Transplant [place] [address] [facility] [address] [place] [address] 12/12/2025 10:00 AM EST Office Visit [facility] [address] [facility] [address] [place] [address] Portia Maguire MD [address] [facility] [address] [place] [address] documented as of this encounter [...] documented as of this encounter Care Teams Geoscience Specialist Relationship Specialty Start Date End Date Chris Medel MD [address] [place] [address] PCP - General 03/14/25 Ruma Hernández APRN [address] [place] [address] [address] [place], [place] [address] Referring Physician Gastroenterology 07/30/23 documented as of this encounter
--- OUTSIDE RECORDS SUMMARY | 2025-09-18 18:39 | XMS_ITS | Encounter Summary ---
Author Organization [facility] Address [address] [place] [address] Care Team Providers Care Molding Machine Operator Helper Name Role Phone Unavailable Primary Care Provider [...] release of HIV test results or diagnoses. [id number] Health Encounter Details Date Type Department Care Team (Late st Contact Info) Description 08/02/2025 Chart Note [facility] Liver Transplant at [address] [address] Cori Dover MA Liver transplant referral entered. [...]
--- OUTSIDE RECORDS SUMMARY | 2025-09-18 18:39 | XMS_ITS | Encounter Summary ---
Author Organization [facility] Address [address] [place] [address] Care Team Providers Care Powdered Sugar Supervisor Name Role Phone Unavailable Primary Care [...] release of HIV test results or diagnoses. [id number] Health Encounter Details Date Type Department Care Team (Late st Contact Info) Description 08/13/2025 Telephone [facility] Liver Transplant at [address] [address] Cori Dover MA Social History Tobacco Use [...]
--- OUTSIDE RECORDS SUMMARY | 2025-09-18 18:39 | XMS_ITS | Encounter Summary ---
Author Organization Healthcare Address [address] [place] [address] Care Team Providers Care Lead Programmer Analyst Name Role Phone Ruma Hernández ICT SALES REPRESENTATIVE Unavailable [phone] Chris Medel MD Primary Care Provider [phone] Encounter Details Date Type Department Care Team (Late st Contact Info) Description 06/05/2025 Results Follow-Up [facility] Transplant Center [address] [place] [address] Meaghan Le, RN [facility] LIVER [id number] [address] [place] [address] Social History Tobacco Use Types [...] you attend [facility] or yazidism services? More than 4 times per year 02/19/2025 Do you belong to any clubs o r organizations such as mormonism groups, unions, [employer] or athletic groups, or school groups? Yes [...] o r organizations such as mormonism groups, unions, fraternal or athletic groups, or [...] and heating? Not hard at all 06/15/2025 [facility] of Occupat ional Health - Occupational Stress [...] living in a halfway (including now)? No 06/15/2025 CAGE ASSESSMENT Answer [...] drink first t luisa in the morning (EYE-APIGEE DEVELOPER) to steady your nerves or to get rid of a hangover? 0 06/14/2025 CAGE Questionnaire Score 0 025 Utilities Answer Date Recorded In the past 12 months has th e [employer], gas, oil, or water [employer] threatened to shut off services in your [...] [address] [facility], [address] [place] [address] Suhail Brock MD [address] [place] [address] 10/18/2025 4:20 PM EST Office Visit [facility] [address] [facility], [address] [place] [address] Moustapha Katz MD [address] [facility] [address] [place] [address] 12/12/2025 8:30 AM EST Clinical Support [facility] Transplant Center [address] [facility] [address] [place] [address] 12/12/2025 10:00 AM EST Office Visit [facility] Transplant [place] [address] [facility] [address] [place] [address] Portia Maguire MD [address] [facility] [address] [place] [address] documented as of this encounter Visit Diagnoses [...] documented as of this encounter Care Teams Lead Programmer Analyst Relationship Specialty Start Date End Date Chris Medel MD [address] [place] [address] PCP - General 03/14/25 Ruma Hernández APRN [address] [place] [address] Referring Physician Gastroenterology 07/30/23 documented as of this encounter
--- OUTSIDE RECORDS SUMMARY | 2025-09-18 18:39 | XMS_ITS | Encounter Summary ---
Author Organization Healthcare Address [address] [place] [address] Care Team Providers Care Oil Well Service Unit Operator Name Role Phone Urban Brantley DO Primary Care Provider [phone] Ruma Hernández GUTTER INSTALLER Unavailable [phone] Chris Medel MD Primary Care Provider [phone] Encounter Details Date Type Department Care Team (Late Contact Info) Description 03/22/2023 Orders Only External Location [address] [place] [address] Provider, External Social History Tobacco Use Types [...] Medical Office Building Urology [address] [facility], [address] [place] [address] Suhail Brock MD [address] [place] [address] 10/18/2025 4:20 PM EST Office Visit [facility] Bone & Mineral Metabolism [address] , [address] [place] [address] Moustapha Katz MD [address] [place] [address] 12/12/2025 8:30 AM EST Clinical Support [facility] Transplant [place] [address] [facility] [address] [place] [address] 12/12/2025 10:00 AM EST Office Visit [facility] Transplant [place] [address] [facility] [address] [place] [address] Portia Maguire MD [address] [facility] [address] [place] [address] documented as of this encounter [...] as of this encounter Care Teams Oil Well Service Unit Operator Relationship Specialty Start Date End Date Urban Brantley DO [address] [place] [address] PCP - General 07/30/23 03/13/25 Chris Medel MD [address] [place] [address] PCP - General 03/14/25 Ruma Hernández APRN [address] [facility] [address] [place], [place] [address] Referring Physician Gastroenterology 07/30/23 documented as of this encounter
--- OUTSIDE RECORDS SUMMARY | 2025-09-18 18:39 | XMS_ITS | Encounter Summary ---
Author Organization Healthcare Address [address] [place] [address] Care Team Providers Care Gore Seamer Name Role Phone Urban Brantley DO Primary Care Provider [phone] Ruma Hernández PRESS MACHINE OPERATOR Unavailable [phone] Chris Medel MD Primary Care Provider [phone] Encounter Details Date Type Department Care Team (Late Contact Info) Description 05/09/2023 Orders Only External Location [address] [place] [address] Provider, External Social History Tobacco Use Types [...] [facility], [address] [place] [address] Suhail Brock MD [address] [place] [address] 10/18/2025 4:20 PM EST Office Visit [facility] Min[facility] Metabolism [address] , [address] [place] [address] Moustapha Katz MD [address] [place] [address] 12/12/2025 8:30 AM EST Clinical Support [facility] Transplant [place] [address] [facility] [address] [place] [address] 12/12/2025 10:00 AM EST Office Visit [facility] [place] [address] [facility] [address] [place] [address] Portia Maguire MD [address] [facility] [address] [place] [address] documented as of this encounter [...] documented as of this encounter Care Teams Gore Seamer Relationship Specialty Start Date End Date Urban Brantley DO [address] [place] [address] PCP - General 07/30/23 03/13/25 Chris Medel MD [address] [place] [address] PCP - General 03/14/25 Ruma Hernández APRN [address] [facility] 202 [place] [address] Referring Physician Gastroenterology 07/30/23 documented as of this encounter
--- OUTSIDE RECORDS SUMMARY | 2025-09-18 18:39 | XMS_ITS ---
Author Organization [facility] Address [address] [place] [address] Care Team Providers Care Director Of Social Services Name Role Phone Ruma Hernández APRN Unavailable [phone] Chris Medel MD Primary Care Provider [phone] Transplant Episode Liver Candidate [facility] ([place], [place]) - [facility] waitlisted on 07/05/2024 Marked as Active on 06/13/2025 Liver CoordinatorMeaghan Le RN Fax: N/A Email: N/A Scores Score Value Updated Expires Exceptions/Questa sons CPRA Not available UNOS MELD 6 MELD (Calc) 21 09/12/2025 [place] Organ Diagnosis Organ Primary Contributory Liver Alcohol-Associated C irrhosis Without Acute Alcohol-Associated Hepatitis Care Team Name Role Phone Fax Email Meaghan Le RN Liver Coordinator [phone] N/A N/A Urban Brantley DO Primary Care Provider [phone] N/A Bird Kennedy MD Surgeon [phone] N/A CALEB GaticaW Housing Quality Standard Inspector [phone] N/A N/A Ruma Hernández APRN Referring Physician [phone] N/A Events Pre-Transplant Referred: 07/30/2023 Committee: 06/19/2024 Center waitlisted: 07/05/2024 Appointments (08/18/2025 - 10/18/2025) When With Visit Type Description 09/12/2025 Transplant - [facility] Pre-li jin transplant, listed 09/12/2025 Transplant - [facility] Office Visit - Transplant Pre-liver transplant, listed (Primary Dx); Cirrhosis of liver with ascites, unspecified hepatic cirrhosis type; Other ascites; Alcoholic cirrhosis, unspecified whether ascites present; Hemochromatosis associated with compound heterozygous mutation in HFE gene; Alcohol use disorder, moderate, in sustained remission; Hepatic encephalopathy (CMS/HCC)
--- OUTSIDE RECORDS SUMMARY | 2025-09-18 18:39 | XMS_ITS ---
Author Organization [facility] Address [address] [place] [address] Care Team Providers Care Oiling Machine Operator Name Role Phone System, Provider Not In Primary Care Provider Un available Transplant Episode Liver Candidate [facility] ([place], [place]) - [facility] Evaluation began on 09/10/2025 Marked as Active on 09/10/2025 Liver CoordinatorChapito Alcantar RN Phone: N/A Fax: N/A Email: N/A Scores Score Value Updated Expires Exceptions/Latricia sons CPRA Not available UNOS MELD Not available MELD (Calc) 23 09/10/2025 [place] Organ Diagnosis 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 Care Team Name Role Phone Fax Email Chapito Alcantar RN Liver Coordinator N/A N/A N/A Chpaito Alcantar RN Txp Pre Coordinator N/A N/A N/A Portia Maguire Referring Physician [phone] N/A MADHAV Arias, MARKET RESEARCH ASSOCIATE Txp Voyage Management System Operator N/A N/A N/A Events Pre-Transplant Referred: 08/02/2025 Evaluation began: 09/10/2025 Committee: 09/11/2025 Recently Completed Checklist Tasks (Completed 08/18/2025 - 09/18/2025) Name Completion Date Additional Info Social Work Consult 09/11/2025 Appointments (08/18/2025 - 10/18/2025) When With Visit Type Description 09/10/2025 Txp James Braun New Patient Pre-tra nsplant evaluation for chronic liver disease (Primary Dx); Encounter for pre-transplant evaluation for liver transplant 09/10/2025 Txp Hep - Sydni P New Patient Alcoholic cirrhosis of liver with ascites (CMS-HCC) (Primary Dx); Pre-transplant evaluation for chronic liver disease 09/10/2025 Txp Hep - Erasmo, A New Patient Pre-transp lant evaluation for chronic liver disease (Primary Dx); Alcoholic cirrhosis of liver with ascites (CMS-HCC)
--- OUTSIDE RECORDS SUMMARY | 2025-09-18 18:39 | XMS_ITS | Encounter Summary ---
Author Organization [facility] Address [address] [place] [address] Care Team Providers Care Part Time Name Role Phone System, Provider Not In [...] release of HIV test results or diagnoses. [id number] Health Encounter Details Date Type Department Care Team (Late st Contact Info) Description 09/10/2025 Social Work [facility] Liver Transplant at [address] [address] Michelle Ho, RACK LOADER, HYDRAULIC MINER Social History Tobacco Use Types Packs/Day Years [...] on filedocumented in this encounter Care Teams Part Time Relationship Specialty Start Date End Date System, Provider Not In PCP - General 09/10/25 documented as of this encounter
--- OUTSIDE RECORDS SUMMARY | 2025-09-18 18:39 | XMS_ITS | Encounter Summary ---
Author Organization [facility] Address [address] [place] [address] Care Team Providers Care Sap Security Architect Name Role Phone Unavailable Primary Care Provider [...] release of HIV test results or diagnoses. [id number] Health Encounter Details Date Type Department Care Team (Late st Contact Info) Description 08/13/2025 Telephone [facility] Liver Transplant at [address] [address] Cori Dover MA Social History Tobacco Use [...]
--- OUTSIDE RECORDS SUMMARY | 2025-09-18 18:39 | XMS_ITS | Encounter Summary ---
Author Organization [facility] Address [address] [place] [address] Care Team Providers Care Residential Construction Instructor Name Role Phone Unavailable Primary Care Provider [...] release of HIV test results or diagnoses. [id number] Health Encounter Details Date Type Department Care Team (Late st Contact Info) Description 08/13/2025 Chart Note [facility] Kidney Transplant at [address] [address] Ailin Wells Patient is financially cleared for [...] for patient/donor needs to be done at [facility] documented in this encounter Plan of Treatment Not on file documented as of this encounter Visit Diagnoses Not on filedocumented in this encounter
--- OUTSIDE RECORDS SUMMARY | 2025-09-18 18:39 | XMS_ITS | Encounter Summary ---
Author Organization [facility] Address [address] [place] [address] Care Team Providers Care Senior Ios Software Engineer Name Role Phone System, Provider Not In [...] release of HIV test results or diagnoses. [id number] Health Encounter Details Date Type Department Care Team (Late st Contact Info) Description 09/17/2025 Refill [facility] at [facility] [address] [place] [phone] Johnny Dubois RN Social History Tobacco Use Types Packs/Day [...] encounter Miscellaneous Notes * Telephone Encounter - Johnny Dubois RN - 09/17/2025 4:16 PM EST Received fax states ivermectin requires PA. Called pt and spoke with and informed her that medication will need to be sent to [facility] pharmacy to be filled. Gave [facility] pharmacy phonenumber to call about getting medication mailed to their house possibly. documented in this encounter Plan of Treatment Not on file documented as of this encounter Visit Diagnoses Not on filedocumented in this encounter Care Teams Senior Ios Software Engineer Relationship Specialty Start Date End Date System, Provider Not In PCP - General 09/10/25 documented as of this encounter
--- OUTSIDE RECORDS SUMMARY | 2025-09-18 18:39 | XMS_ITS | Encounter Summary ---
Author Organization [facility] Address [address] [place] [address] Care Team Providers Care Editor Map Name Role Phone Unavailable Primary Care Provider [...] release of HIV test results or diagnoses. [id number] Reason for Referral * Imaging/Cardiovascular Scan (Routine) - Closed Specialty Diagnoses / Procedures Referred By Contru t Referred To Contact Radiology Diagnoses Pre-transplant evaluation for chronic liver disease Procedures CT Chest WO contrast [facility] Liver Transplant at [address] [address] Phone: tel: fax: Referral ID Status Reason Start Date Expiration Date Visits Re quested Visits Authorized [id number] Closed 08/13/2025 02/09/2026 1 1 Encounter Details Date Type Department Care Team (Late st Contact Info) Description 08/13/2025 Orders Only [facility] Liver Transplant at [address] [address] Chapito Alcantar RN Pre-transplant evaluation for [...] as of this encounter Results * CT Chest WO [...] within the right upper lobe with downstream wchx-[id number]-[id number] within the paramedian right upper lobe apex. [...] Pre-transplant evaluation for chronic liver disease- Primary Pre-transplant evaluation for chronic liver disease documented in this encounter
--- OUTSIDE RECORDS SUMMARY | 2025-09-18 18:39 | XMS_ITS | Encounter Summary ---
Author Organization [facility] Address [address] [place] [address] Care Team Providers Care Fast Food Delivery Driver Name Role Phone Urban Brantley DO Primary Care Provider Ruma Hernández BARKEEP Unavailable Chris Medel MD Primary Care Provider [phone] Encounter Details Date Type Department Care Team (Late st Contact Info) Description 12/30/2023 Orders Only External Location [address] [place] [address] Urban Stafford MD [address] [facility] [address] [place] [address] Social History Tobacco Use Types Packs/Day [...] [address], [address] [place] [address] Suhail Brock MD [address] [place] [address] 10/18/2025 4:20 PM EST Office Visit [facility] [address], [address] [place] [address] Moustapha Katz MD [address] [place] [address] 12/12/2025 8:30 AM EST Clinical Support [facility] [address] [place] [address] 12/12/2025 10:00 AM EST Office Visit [facility] [address] [place] [address] Portia Maguire MD [address] [place] [address] documented as of this encounter [...] documented as of this encounter Care Teams Fast Food Delivery Driver Relationship Specialty Start Date End Date Urban Brantley DO [address] [place] [address] PCP - General 07/30/23 03/13/25 Chris Medel MD [address] [place] [address] PCP - General 03/14/25 Ruma Hernández APRN [address] [place] [address] Referring Physician Gastroenterology 07/30/23 documented as of this encounter
--- OUTSIDE RECORDS SUMMARY | 2025-09-18 18:39 | XMS_ITS | Encounter Summary ---
Author Organization [facility] Address [address] [place] [address] Care Team Providers Care Wine Consultant Name Role Phone System, Provider Not In [...] release of HIV test results or diagnoses. [id number] Reason for Visit * Reason Comments Prior Authorization Encounter Details Date Type Department Care Team (Late st Contact Info) Description 09/18/2025 Pharmacy Services [facility] [address] [place] [address] Delaney Bahena RXT Social History Tobacco Use Types Packs/Day Years [...] filedocumented in this encounter Care Teams Wine Consultant Relationship Specialty Start Date End Date System, Provider Not In PCP - General 09/10/25 documented as of this encounter
--- NOTE | 2025-09-18 18:40 | ED_ITS ---
<Statement entered by Viv Woo DO - 09/20/25 11:48> I was consulted by the ELÍAS, and we discussed the complexity of problems being addressed. I approve the treatment and management plan for this patient's care in the emergency department, thus performing a substantial portion of the medical decision making. Viv Woo DO Discharge Plan Disposition Patient Disposition: Admitted Condition: Fair Clinical Impressions Clinical Impression: Hyperbilirubinemia, Thrombocytopenia Cirrhosis of liver Qualifiers: Hepatic cirrhosis type: other cirrhosis Qualified Code(s): K74.69 - Other cirrhosis of liver UTI (urinary tract infection) Qualifiers: Urinary tract infection type: site unspecified Hematuria presence: with hematuria Qualified Code(s): N39.0 - Urinary tract infection, site not specified Discharge ED Provider: Viv Woo General Adult HPI <LAISHA Fink - Last Filed: 09/18/25 21:39> General Chief complaint: Abdominal Pain Stated complaint: nausea,hurting in abdominal Time Seen by Provider: 09/18/25 18:24 Mode of Arrival: Ambulatory Source of Information: Patient and Spouse Description of Symptoms (Recalled from ER Triage Doc. by RN): patient prsents for overall not feeling well. patient is a liver transplant patient at an has been for one year. paitent states he feels like he is fluid overloaded and may need a paracentesis. History of Present Illness HPI narrative: 65-year-old male presents emerged brought accompanied by his for abdominal discomfort/pain that started earlier today, with some nausea, patient denies any vomiting, also of note patient tells me that he fell , today, he states he got tripped up , denies striking head, was able to get up on his own, denies any presyncopal or syncopal event. Denies any fever chills chest pain shortness of breath, does have some diarrhea that started last night, denies any constipation, denies any hematuria melena hematochezia or hematemesis, denies any urinary type symptomatology, patient is a former smoker, former alcohol use, denies any illicit drug use, patient is on the liver transplant list at [facility], has had previous paracentesis in June 2025. Other past medical history consistent with thrombocytopenia, liver cirrhosis, BPH, hypertension, hyperlipidemia, hemochromatosis, portal hypertension. Initial triage vitals are unremarkable. Also of note patient states that the patient was recently diagnosed with strongloides Please note that above description of symptoms, in this electronic medical record under categorization of recalled from ER triage doctor by RN are reflective of an initial nursing assessment, however, is not reflective of my full history and physical exam that was personally taken and clarified. Consequentially, this preceding description of symptoms, which may include the patient's categorized chief complaint in the EMR, do not reflect my personal clinical impression, and the ultimate description of history of present illness and patient stated complaints should be deferred to this section of the note. Unless stated otherwise or congruent with this section of the note, additional signs, symptoms, or incongruence should be interpreted as inaccurate with my clinical impression. Onset (ago): hour(s) Related Data Home Medications ?Medication ?Instructions ?Recorded ?Confirmed furosemide 20 mg tablet 20 mg PO DAILY 07/15/2304/08 omeprazole 20 mg capsule,delayed 20 mg PO DAILY 09/18/25 release spironolactone 50 mg tablet 50 mg PO DAILY 07/15/23 calcium 600 mg (as 1 tab PO BID 05/28/25 carbonate)-vitamin D3 10 mcg (400 unit) tablet ergocalciferol (vitamin D2) 1,250 1,250 mcg PO WEEKLY 05/28/25 09/18/25 mcg (50,000 unit) capsule (Vitamin D2) rifaximin 550 mg tablet (Xifaxan) 550 mg PO BID 09/18/25 calcitriol 0.25 mcg capsule 0.25 mcg PO DIRECTED 09/19/25 carvedilol 3.125 mg tablet 3.125 mg PO BID 07/20/25 Previous Rx's ?Medication ?Instructions ?Recorded levofloxacin 750 mg tablet 750 mg PO DAILY 5 days #5 t abs 09/20/25 Allergies Allergy/AdvReac Type Severity Reaction Status Date / Time lisinopril AdvReac cough Verified 07/20/25 09:38 [facility] <LAISHA Fink - Last Filed: 09/18/25 21:39> [facility] Disclaimer: The information contained in this section may have been updated after the patient was seen, as this information can be updated by other users. Medical History Bronchitis History of impacted cerumen Renal stone Impotence Will give [place] to try off at patient's request. Edema Related to his liver failure. Heart murmur I think this is related to the fluid shifts secondary to his liver failure. This was a flow murmur to my hearing today. Again we will send him to cardiology just for establishment and continued follow-up of care. Anemia His anemia is also related to his underlying hepatitis. Again being followed by Spermatocele of epididymis See above. Varicocele See above. Liver cirrhosis Epididymitis Bilateral impacted cerumen Chronic sinusitis Migraine Thrombocytopenia Abnormal EKG Near syncope HLD (hyperlipidemia) HTN (hypertension) Surgical History History of colonoscopy H/O hernia repair Family History Other Asthma Cancer Diabetes Social History Smoking Status: Never smoker alcohol intake: current alcohol intake frequency: a few times a week substance use type: denies use current occupational status: employed Travel in the last 8 weeks?: None household members: family housing: house Other Medical History Have you received the Pneumonia Vaccine: No <LAISHA Fink - Last Filed: 09/18/25 21:39> ROS Obtained: Yes All systems reviewed & no additional complaints except as documented Physical Exam <LAISHA Fink - Last Filed: 09/18/25 21:39> General General appearance: alert and in no apparent distress Head Head exam: atraumatic and normocephalic Eye Eye exam: Present PERRL, EOMI and scleral icterus ENT ENT exam: Present mucous membranes moist Neck Neck exam: Present normal inspection Chest Chest inspection: Present normal inspection and symmetric chest wall rise Respiratory Respiratory exam: Present normal lung sounds bilaterally; Absent respiratory distress Cardiovascular Cardiovascular exam: Present regular rate and normal rhythm Abdominal Exam Abdominal exam: Present soft, distention and hernia; Absent tenderness, guarding, rebound or rigidity Comment: Some abdominal distention, no fluid wave shift, umbilical hernia reducible nonincarcerated nonstrangulated, no caput medusa, no telangiectasis Extremities Exam Extremities exam: Present normal inspection Neurological Exam Neurological exam: Present alert and oriented X3 Psychiatric Psychiatric exam: Present normal affect Skin Skin exam: Present warm and dry Medical Decision Making <LAISHA Fink - Last Filed: 09/18/25 21:39> Medical Records Medical records reviewed: Yes I reviewed the patient's medical records. Screening: Per USPSTF and CDC recommendations, given the prevalence of disease in our region, it is our hospital?s policy to screen for HIV and viral Hepatitis for all patients aged 18 and over and those with ongoing risk factors. Dieter Inquiry Pt receiving controlled substance: No Dieter was queried for this patient: No Vital Signs: 09/18/25 18:15 09/18/25 18:30 09/18/25 19:00 Temperature 98.4 F Temperature Source Oral Pulse Rate 85 88 Pulse Rate [Right Radial] 92 H Respiratory Rate 18 Blood Pressure 118/67 114/55 L Blood Pressure [Right Arm] 135/68 Blood Pressure Mean 84 76 Blood Pressure Mean [Right Arm] 90 Blood Pressure Source Blood Pressure Source [Right Arm] Automatic Cuff Blood Pressure Position Blood Pressure Position [Right Arm] Sitting 02 Sat by Pulse Oximetry 100 99 98 Oxygen Delivery Method Room Air 09/18/25 19:30 09/18/25 20:00 09/18/25 20:30 Temperature Temperature Source Pulse Rate 87 84 89 Pulse Rate [Right Radial] Respiratory Rate Blood Pressure 112/55 L 102/62 L 121/72 Blood Pressure [Right Arm] Blood Pressure Mean 80 76 83 Blood Pressure Mean [Right Arm] Blood Pressure Source Blood Pressure Source [Right Arm] Blood Pressure Position Blood Pressure Position [Right Arm] 02 Sat by Pulse Oximetry 98 96 99 Oxygen Delivery Method 09/18/25 21:00 09/18/25 21:00 09/18/25 21:50 Temperature Temperature Source Pulse Rate 82 Pulse Rate [Right Radial] Respiratory Rate Blood Pressure 114/66 Blood Pressure [Right Arm] Blood Pressure Mean 76 Blood Pressure Mean [Right Arm] Blood Pressure Source Blood Pressure Source [Right Arm] Blood Pressure Position Blood Pressure Position [Right Arm] 02 Sat by Pulse Oximetry 98 Oxygen Delivery Method Room Air 09/18/25 22:06 09/18/25 22:26 09/18/25 22:32 Temperature 98.3 F 98.2 F 98.3 F Temperature Source Oral Oral Oral Pulse Rate 82 82 Pulse Rate [Right Radial] 86 Respiratory Rate 16 17 16 Blood Pressure 110/57 L 110/57 L Blood Pressure [Right Arm] 142/82 H Blood Pressure Mean Blood Pressure Mean [Right Arm] 102 Blood Pressure Source Automatic Cuff Automatic Cuff Blood Pressure Source [Right Arm] Automatic Cuff Blood Pressure Position Supine Supine Blood Pressure Position [Right Arm] Sitting 02 Sat by Pulse Oximetry 98 97 Oxygen Delivery Method Room Air Room Air Room Air Lab Data Lab results reviewed: Yes I reviewed the patient's lab results. Lab Results 09/18/25 18:32: WBC 10.0, RBC 3.18 L, Hgb 11.1 L, Hct 33.1 L, MCV 104.1 H, MCH 34.9 H, MCHC 33.5, RDW 17.1, Plt Count 49 L*, MPV 11.4 H, Neut % (Auto) 84.2 H, Lymph % (Auto) 9.4 L, [place] % (Auto) 5.4, Eos % (Auto) 0.2, Baso % (Auto) 0.4, N eut # (Auto) 8.4 H, Lymph # (Auto) 0.9, [place] # (Auto) 0.5, Eos # (Auto) 0.0, Baso # (Auto) 0.0, PT 17.6 H, INR 1.65 H, APTT 38.0 H, Sodium 135 L, Potassium 4.9, Chloride 108 H, Carbon Dioxide 25, Anion Gap 6.9, BUN 20, Creatinine 1.10, Estimated Creat Clear 92, Estimated GFR 67, Est GFR ( Amer) 82, Glucose 90, Lactate 3.7 H, Calcium 7.8 L, Total Bilirubin 9.5 H, AST 82 H, ALT 47, A lkaline Phosphatase 135 H, Total Protein 6.9, Albumin 2.9 L, Globulin 4.0 H, A lbumin/Globulin Ratio 0.7 L, Lipase 26, Plasma/Serum Alcohol < 10, Blood Type Confirm A Positive 09/18/25 19:00: NT-Pro-B Natriuret Pep 280 H 09/18/25 19:10: Urine Color Red, Urine Appearance Turbid, Urine pH 6.5, Ur Specific Randall 1.020, Urine Protein 3+ A, Urine Glucose (UA) Trace, Urine Ketones 1+, Urine Blood 3+ A, Urine Nitrate Positive A, Urine Bilirubin Negative, Urine Urobilinogen 4.0, Ur Leukocyte Esterase 3+ A, Urine RBC Tntc, Urine WBC Tntc, Ur Squamous Epith Cells 3-5, Urine Bacteria 1+, Urine Mucus 1+ 09/20/25 05:56 09/20/25 05:56 Orders (Tests/Meds): ED MEDICATIONS Generic Name Dose Route Start Last Admin Trade Name Parish PRN Reason Stop Dose Admin Carvedilol 3.125 mg 09/19/25 21:00 09/20/25 09:30 Carvedilol 3.125mg Tablet PO 10/19/25 20:59 Not Given BID LOREN Furosemide 20 mg 09/19/25 12:10 09/20/25 08:59 Furosemide 20mg Tablet PO 10/19/25 12:09 20 mg DAILY LOREN Administration Ceftriaxone Sodium 2 gm/ 100 mls @ 200 mls/hr 09/18/25 20:15 09/19/25 21:11 Sodium Chloride IV 09/28/25 20:14 Infused Q24H LOREN Infusion Morphine Sulfate 2 mg 09/18/25 22:06 09/18/25 23:29 Morphine 4mg/Ml Syringe IV 10/18/25 22:05 2 mg Q4HP PRN Administration Severe Pain (7-10) Ondansetron HCl 4 mg 09/18/25 22:06 09/18/25 23:30 Ondansetron 4mg/2ml Vial IV 10/18/25 22:05 4 mg Q8HP PRN Administration Nausea Pantoprazole Sodium 40 mg 09/19/25 21:00 09/19/25 20:40 Pantoprazole 40mg Tablet PO 10/19/25 20:59 40 mg HS LOREN Administration Rifaximin 550 mg 09/19/25 12:10 09/20/25 08:59 Rifaximin 550mg Tablet PO 09/29/25 12:09 550 mg BID LOREN Administration Sodium Chloride 10 ml 09/19/25 11:02 Sodium Chloride 0.9% 10ml Flush Syringe IV 10/19/25 11:01 NEEDED PRN Maintain IV Site Spironolactone 50 mg 09/19/25 12:10 09/20/25 08:59 Spironolactone 25mg Tablet PO 10/19/25 12:09 50 mg DAILY LOREN Administration Discontinued Medications Generic Name Dose Route Start Last Admin Trade Name Parish PRN Reason Stop Dose Admin Furosemide 40 mg 09/20/25 09:51 09/20/25 10:10 Furosemide 40mg/4ml Vial IV 09/20/25 09:52 40 mg ONCE ONE Administration Hydromorphone HCl 0.25 mg 09/19/25 19:52 09/19/25 20:40 Hydromorphone 2mg/Ml Syringe IV 09/19/25 19:53 0.25 mg ONCE ONE Administration Sodium Chloride 250 mls @ 25 mls/hr 09/18/25 22:15 09/19/25 18:24 Sod Chlor 0.9% 250ml Bag IV 09/19/25 22:14 Not Given .Q10H LOREN Iopamidol 75 ml 09/18/25 19:20 09/18/25 19:20 Iopamidol-370 (76%);100ml Bottle IV 09/18/25 19:21 75 ml ONCE ONE Administration Pantoprazole Sodium 40 mg 09/19/25 21:00 Pantoprazole 40mg Tablet PO 10/19/25 20:59 HS LOREN Potassium Chloride 40 meq 09/20/25 10:45 09/20/25 11:33 Potassium Chloride 20meq Tab PO 09/20/25 10:46 40 meq ONCE ONE Administration Sodium Chloride 10 ml 09/18/25 19:20 09/18/25 19:21 Sodium Chloride 0.9% 10ml Syr (Rad Only) IV 09/18/25 19:21 10 ml ONCE ONE Administration ORDERS Category Date Time Status CT abdomen pelvis w con Stat Cat Scan 09/18/25 18:34 Completed POCUS Point of Care (ER Only) Stat Exams 09/18/25 20:10 Completed Complete Blood Count Auto Diff Stat Lab 09/18/25 18:32 Completed Comprehensive Metabolic Panel Stat Lab 09/18/25 18:32 Completed Ethanol [Ethyl Alcohol] Stat Lab 09/18/25 18:32 Completed Lactic Acid Stat Lab 09/18/25 18:32 Completed Lipase Stat Lab 09/18/25 18:32 Completed NT Pro Brain Natriuretic Pep. Stat Lab 09/18/25 19:00 Completed PT INR [Prothrombin Time INR] Stat Lab 09/18/25 18:32 Completed PTT [Activated Partial Thrombo Time] Stat Lab 09/18/25 18:32 Completed Urinalysis and Microscopic Stat Lab 09/18/25 19:10 Completed Blood Culture Stat Micro 09/18/25 20:15 Results Urine Culture Stat Micro 09/18/25 19:10 Results Medical Decision Narrative: 65-year-old male presents to the emergency department abdominal discomfort, abdominal distention, and nausea that started today, differential diagnose include but not limited to Ascites, liver cirrhosis, Bowel obstruction, portal hypertension, constipation, pancreatitis, malignancy, colitis, ileitis I discussed this patient case with attending physician Dr. Woo she saw and examined the patient as well. Will obtain basic laboratory studies, add alcohol, lactic acid, lipase, proBNP, coags, UA, CT abd pelvis with contrast, and bedside POCUS abdominal ultrasound. CBC is notable for erythrocyte pi?a, hemoglobin hematocrit are stable at 11.1/33.1, MCV is elevated at 104.1 appears chronic, thrombocytopenia at 49 which is decreased since last CBC. Lactic acidosis 3.7, hypocalcemia 7.8, AST elevation 82, ALP elevation 135 hypoalbuminemia 2.9 lipase within normal limits at the alcohol level within normal proBNP is minimally elevated 280, Bilirubin is significantly elevated at 9.5 PT is 17.6 which is elevated INR is 1.65, PTT is 38. MELD score at [facility] on 1028 was 22, currently today is 22, but bilirubin is significantly elevated from the 29th, on the 29th patient's bilirubin was 3.7. Positive nitrites noted on the patient's urine 3+ hematuria, 3+ proteinuria, 3+ leukocyte esterase. Will treat the patient with 2 g IV Rocephin. I reviewed the patient's CT abdomen pelvis with contrast on the corresponding radiologic report, small left basilar pleural effusion with compressive atelectasis, nodular contour of the liver compatible cirrhosis, paraesophageal and splenic varices compatible with portal hypertension, moderate thickening and edema of the gastric antrum and duodenal bulb compatible gastritis, moderate to severe edema of the left upper quadrant small bowel and distal duodenum near vision infectious or inflammatory enteritis less likely ischemia given opacification of the mesenteric vessels, cholelithiasis without CT evidence of cholecystitis. Urinalysis notable too numerous to count RBCs too numerous to count WBCs, 3-5 squamous epithelial cells 1+ bacteria 1+ urine mucus. Attending physician and I had a long discussion with the patient today with the bedside patient family would like to pursue higher level of care/transfer to [facility] I think this is appropriate for decompensated liver failure rule out SBP as well as acute UTI. Will attempt to call [facility] for transfer. Attending physician was able to discuss this patient's case with [facility], see attending physician documentation for conversation. <Viv Woo, DO - Last Filed: 09/20/25 11:48> Vital Signs: 09/18/25 18:15 09/18/25 18:30 09/18/25 19:00 Temperature 98.4 F Temperature Source Oral Pulse Rate 85 88 Pulse Rate [Right Radial] 92 H Respiratory Rate 18 Blood Pressure 118/67 114/55 L Blood Pressure [Right Arm] 135/68 Blood Pressure Mean 84 76 Blood Pressure Mean [Right Arm] 90 Blood Pressure Source Blood Pressure Source [Right Arm] Automatic Cuff Blood Pressure Position Blood Pressure Position [Right Arm] Sitting 02 Sat by Pulse Oximetry 100 99 98 Oxygen Delivery Method Room Air 09/18/25 19:30 09/18/25 20:00 09/18/25 20:30 Temperature Temperature Source Pulse Rate 87 84 89 Pulse Rate [Right Radial] Respiratory Rate Blood Pressure 112/55 L 102/62 L 121/72 Blood Pressure [Right Arm] Blood Pressure Mean 80 76 83 Blood Pressure Mean [Right Arm] Blood Pressure Source Blood Pressure Source [Right Arm] Blood Pressure Position Blood Pressure Position [Right Arm] 02 Sat by Pulse Oximetry 98 96 99 Oxygen Delivery Method 09/18/25 21:00 09/18/25 21:00 09/18/25 21:50 Temperature Temperature Source Pulse Rate 82 Pulse Rate [Right Radial] Respiratory Rate Blood Pressure 114/66 Blood Pressure [Right Arm] Blood Pressure Mean 76 Blood Pressure Mean [Right Arm] Blood Pressure Source Blood Pressure Source [Right Arm] Blood Pressure Position Blood Pressure Position [Right Arm] 02 Sat by Pulse Oximetry 98 Oxygen Delivery Method Room Air 09/18/25 22:06 09/18/25 22:26 09/18/25 22:32 Temperature 98.3 F 98.2 F 98.3 F Temperature Source Oral Oral Oral Pulse Rate 82 82 Pulse Rate [Right Radial] 86 Respiratory Rate 16 17 16 Blood Pressure 110/57 L 110/57 L Blood Pressure [Right Arm] 142/82 H Blood Pressure Mean Blood Pressure Mean [Right Arm] 102 Blood Pressure Source Automatic Cuff Automatic Cuff Blood Pressure Source [Right Arm] Automatic Cuff Blood Pressure Position Supine Supine Blood Pressure Position [Right Arm] Sitting 02 Sat by Pulse Oximetry 98 97 Oxygen Delivery Method Room Air Room Air Room Air Lab Data Lab Results 09/18/25 18:32: WBC 10.0, RBC 3.18 L, Hgb 11.1 L, Hct 33.1 L, MCV 104.1 H, MCH 34.9 H, MCHC 33.5, RDW 17.1, Plt Count 49 L*, MPV 11.4 H, Neut % (Auto) 84.2 H, Lymph % (Auto) 9.4 L, [place] % (Auto) 5.4, Eos % (Auto) 0.2, Baso % (Auto) 0.4, N eut # (Auto) 8.4 H, Lymph # (Auto) 0.9, [place] # (Auto) 0.5, Eos # (Auto) 0.0, Baso # (Auto) 0.0, PT 17.6 H, INR 1.65 H, APTT 38.0 H, Sodium 135 L, Potassium 4.9, Chloride 108 H, Carbon Dioxide 25, Anion Gap 6.9, BUN 20, Creatinine 1.10, Estimated Creat Clear 92, Estimated GFR 67, Est GFR ( Amer) 82, Glucose 90, Lactate 3.7 H, Calcium 7.8 L, Total Bilirubin 9.5 H, AST 82 H, ALT 47, A lkaline Phosphatase 135 H, Total Protein 6.9, Albumin 2.9 L, Globulin 4.0 H, A lbumin/Globulin Ratio 0.7 L, Lipase 26, Plasma/Serum Alcohol < 10, Blood Type Confirm A Positive 09/18/25 19:00: NT-Pro-B Natriuret Pep 280 H 09/18/25 19:10: Urine Color Red, Urine Appearance Turbid, Urine pH 6.5, Ur Specific Randall 1.020, Urine Protein 3+ A, Urine Glucose (UA) Trace, Urine Ketones 1+, Urine Blood 3+ A, Urine Nitrate Positive A, Urine Bilirubin Negative, Urine Urobilinogen 4.0, Ur Leukocyte Esterase 3+ A, Urine RBC Tntc, Urine WBC Tntc, Ur Squamous Epith Cells 3-5, Urine Bacteria 1+, Urine Mucus 1+ Orders (Tests/Meds): ED MEDICATIONS Generic Name Dose Route Start Last Admin Trade Name Freq PRN Reason Stop Dose Admin Carvedilol 3.125 mg 09/19/25 21:00 09/20/25 09:30 Carvedilol 3.125mg Tablet PO 10/19/25 20:59 Not Given BID LOREN Furosemide 20 mg 09/19/25 12:10 09/20/25 08:59 Furosemide 20mg Tablet PO 10/19/25 12:09 20 mg DAILY LOERN Administration Ceftriaxone Sodium 2 gm/ 100 mls @ 200 mls/hr 09/18/25 20:15 09/19/25 21:11 Sodium Chloride IV 09/28/25 20:14 Infused Q24H LOREN Infusion Morphine Sulfate 2 mg 09/18/25 22:06 09/18/25 23:29 Morphine 4mg/Ml Syringe IV 10/18/25 22:05 2 mg Q4HP PRN Administration Severe Pain (7-10) Ondansetron HCl 4 mg 09/18/25 22:06 09/18/25 23:30 Ondansetron 4mg/2ml Vial IV 10/18/25 22:05 4 mg Q8HP PRN Administration Nausea Pantoprazole Sodium 40 mg 09/19/25 21:00 09/19/25 20:40 Pantoprazole 40mg Tablet PO 10/19/25 20:59 40 mg HS LOREN Administration Rifaximin 550 mg 09/19/25 12:10 09/20/25 08:59 Rifaximin 550mg Tablet PO 09/29/25 12:09 550 mg BID LOREN Administration Sodium Chloride 10 ml 09/19/25 11:02 Sodium Chloride 0.9% 10ml Flush Syringe IV 10/19/25 11:01 NEEDED PRN Maintain IV Site Spironolactone 50 mg 09/19/25 12:10 09/20/25 08:59 Spironolactone 25mg Tablet PO 10/19/25 12:09 50 mg DAILY LOREN Administration Discontinued Medications Generic Name Dose Route Start Last Admin Trade Name Freq PRN Reason Stop Dose Admin Furosemide 40 mg 09/20/25 09:51 09/20/25 10:10 Furosemide 40mg/4ml Vial IV 09/20/25 09:52 40 mg ONCE ONE Administration Hydromorphone HCl 0.25 mg 09/19/25 19:52 09/19/25 20:40 Hydromorphone 2mg/Ml Syringe IV 09/19/25 19:53 0.25 mg ONCE ONE Administration Sodium Chloride 250 mls @ 25 mls/hr 09/18/25 22:15 09/19/25 18:24 Sod Chlor 0.9% 250ml Bag IV 09/19/25 22:14 Not Given .Q10H LOREN Iopamidol 75 ml 09/18/25 19:20 09/18/25 19:20 Iopamidol-370 (76%);100ml Bottle IV 09/18/25 19:21 75 ml ONCE ONE Administration Pantoprazole Sodium 40 mg 09/19/25 21:00 Pantoprazole 40mg Tablet PO 10/19/25 20:59 HS LOREN Potassium Chloride 40 meq 09/20/25 10:45 09/20/25 11:33 Potassium Chloride 20meq Tab PO 09/20/25 10:46 40 meq ONCE ONE Administration Sodium Chloride 10 ml 09/18/25 19:20 09/18/25 19:21 Sodium Chloride 0.9% 10ml Syr (Rad Only) IV 09/18/25 19:21 10 ml ONCE ONE Administration ORDERS Category Date Time Status CT abdomen pelvis w con Stat Cat Scan 09/18/25 18:34 Completed POCUS Point of Care (ER Only) Stat Exams 09/18/25 20:10 Completed Complete Blood Count Auto Diff Stat Lab 09/18/25 18:32 Completed Comprehensive Metabolic Panel Stat Lab 09/18/25 18:32 Completed Ethanol [Ethyl Alcohol] Stat Lab 09/18/25 18:32 Completed Lactic Acid Stat Lab 09/18/25 18:32 Completed Lipase Stat Lab 09/18/25 18:32 Completed NT Pro Brain Natriuretic Pep. Stat Lab 09/18/25 19:00 Completed PT INR [Prothrombin Time INR] Stat Lab 09/18/25 18:32 Completed PTT [Activated Partial Thrombo Time] Stat Lab 09/18/25 18:32 Completed Urinalysis and Microscopic Stat Lab 09/18/25 19:10 Completed Blood Culture Stat Micro 09/18/25 20:15 Results Urine Culture Stat Micro 09/18/25 19:10 Results Medical Decision Narrative: 65-year-old male presents to the emergency department abdominal discomfort, abdominal distention, and nausea that started today, differential diagnose include but not limited to Ascites, liver cirrhosis, Bowel obstruction, portal hypertension, constipation, pancreatitis, malignancy, colitis, ileitis I discussed this patient case with attending physician Dr. Woo she saw and examined the patient as well. Will obtain basic laboratory studies, add alcohol, lactic acid, lipase, proBNP, coags, UA, CT abd pelvis with contrast, and bedside POCUS abdominal ultrasound. CBC is notable for erythrocyte pi?a, hemoglobin hematocrit are stable at 11.1/33.1, MCV is elevated at 104.1 appears chronic, thrombocytopenia at 49 which is decreased since last CBC. Lactic acidosis 3.7, hypocalcemia 7.8, AST elevation 82, ALP elevation 135 hypoalbuminemia 2.9 lipase within normal limits at the alcohol level within normal proBNP is minimally elevated 280, Bilirubin is significantly elevated at 9.5 PT is 17.6 which is elevated INR is 1.65, PTT is 38. MELD score at [facility] on 1028 was 22, currently today is 22, but bilirubin is significantly elevated from the , on the patient's bilirubin was 3.7. Positive nitrites noted on the patient's urine 3+ hematuria, 3+ proteinuria, 3+ leukocyte esterase. Will treat the patient with 2 g IV Rocephin. I reviewed the patient's CT abdomen pelvis with contrast on the corresponding radiologic report, small left basilar pleural effusion with compressive atelectasis, nodular contour of the liver compatible cirrhosis, paraesophageal and splenic varices compatible with portal hypertension, moderate thickening and edema of the gastric antrum and duodenal bulb compatible gastritis, moderate to severe edema of the left upper quadrant small bowel and distal duodenum near vision infectious or inflammatory enteritis less likely ischemia given opacification of the mesenteric vessels, cholelithiasis without CT evidence of cholecystitis. Urinalysis notable too numerous to count RBCs too numerous to count WBCs, 3-5 squamous epithelial cells 1+ bacteria 1+ urine mucus. Attending physician and I had a long discussion with the patient today with the bedside patient family would like to pursue higher level of care/transfer to [facility] I think this is appropriate for decompensated liver failure rule out SBP as well as acute UTI. Will attempt to call [facility] for transfer. Attending physician was able to discuss this patient's case with [facility], see attending physician documentation for conversation. Viv Woo, I assumed care of the patient at 2200. I discussed the case with [facility] who accepted the patient as a direct admit. However at this time, they do not have a bed available. Patient will be mated to our hospitalist team pending transfer to the [facility]. I did consult [facility] as well and they were on surgical divert. Critical Care <LAISHA Fink - Last Filed: 09/18/25 21:39> Critical Care Time Critical Care Time: No
[2025-09-18 18:47] LABS: Hematocrit 33.1 % (42.0-52.0); Hemoglobin 11.1 g/dL (14.1-18.0); Immature Granulocytes % 0.4 %; Mean Corpuscular HGB Conc 33.5 g/dL (31.8-35.4); Mean Corpuscular Hemoglobin 34.9 pg (27.0-31.2); Mean Corpuscular Volume 104.1 fl (80-94); Nucleated Red Blood Cells % 0 %; Red Blood Count 3.18 M/mm3 (4.60-6.20); Red Cell Distribution Width-SD 64.6 fL; White Blood Count 10.0 K/mm3 (4.8-10.8)
[2025-09-18 18:54] LABS: Albumin Level 2.9 g/dl (3.5-5.0); Chloride 108 mmol/L (98-107); Platelet Count 49 K/mm3 (142-424)
[2025-09-18 18:55] LABS: Potassium 4.9 mmoL/L (3.5-5.1); Sodium 135 mmol/L (136-145)
[2025-09-18 18:57] LABS: Alanine Aminotransferase 47 U/L (12-78); Albumin/Globulin Ratio 0.7 (1.1-1.8); Alkaline Phosphatase 135 U/L (38-126); Anion Gap 6.9 mEq/L (5-15); Aspartate Amino Transferase 82 U/L (17-59); Bilirubin,Total 9.5 mg/dl (0.2-1.3); Blood Urea Nitrogen 20 mg/dl (9-20); Carbon Dioxide 25 mmol/L (22.0-30.0); Creatinine Clearance Estimated 92 mL/min (50-200); Creatinine,Serum 1.10 mg/dl (0.66-1.25); Estimated Glomerular Filt Rate 67 ml/min (>60); GFR (African American) 82 ML/MIN (>60); Globulin 4.0 g/dL (1.3-3.2); INR 1.65 (0.9-1.1); Lipase 26 U/L (23-300); Prothrombin Time 17.6 seconds (10.1-12.5); Total Protein,Serum 6.9 g/dl (6.3-8.2)
[2025-09-18 18:58] LABS: Calcium 7.8 mg/dl (8.4-10.2); Glucose 90 mg/dl (74-100)
[2025-09-18 19:07] LABS: NT Pro Brain Natriuretic Pep. 280 pg/mL (0-125)
[2025-09-18 19:10] LABS: Activated Partial Thrombo Time 38.0 seconds (22.8-30.6)
[2025-09-18 19:14] LABS: Microscopic, Urine URINE MICROSCOPIC (MICROSCOPIC)
[2025-09-18] MEDS: IOPAMIDOL-370 (76%);100ML BOTTLE 75 ML IV (19:20)
[2025-09-18] MEDS: SODIUM CHLORIDE 0.9% 10ML SYR (RAD ONLY) 10 ML IV (19:21)
[2025-09-18 19:34] LABS: Color,Urine RED (Yellow); Glucose,Urine (UA) TRACE (Negative); Ketones,Urine 1+ (Negative); Leukocyte Esterase,Urine 3+ (Negative); PH,Urine 6.5 (5.0-8.5); Protein,Urine 3+ (Negative); Specific Gravity, Urine 1.020 (1.005-1.030); Urobilinogen,Urine 4.0 EU/dl (0.2)
[2025-09-18 20:02] LABS: Bilirubin,Urine Negative (Negative)
[2025-09-18 20:20] LABS: Bacteria,Urine 1+ /lpf; Mucus,Urine 1+ /lpf; RBC,Urine TNTC #/hpf (0-3); WBC,Urine TNTC #/hpf (0-3)
--- NOTE | 2025-09-18 20:39 | PC.NURSE ---
Spoke with transfer center, awaiting a call back at this time
--- NOTE | 2025-09-18 21:47 | PC.NURSE ---
called UC to inform them that the pt will be admitted here until they have a bed ready for them.
--- NOTE | 2025-09-18 22:01 | PC.NURSE ---
Report given to Viv reardon [facility]
--- NOTE | 2025-09-18 22:11 | P.HP_ITS ---
<Statement entered by Urban Talley MD - 09/22/25 14:19> Agree with the plan of care as outlined by the MOLD FILLING OPERATOR. History of Present Illness *Admission Date: 09/18/25 *Reason for visit:: Abdominal pain *History of present illness: This is a 65-year-old male who has a past medical history significant for cirrhosis, bronchitis, nephrolithiasis, heart murmur, anemia, migraine, hypertension, and hyperlipidemia who presents with a chief complaint of abdom inal pain, nausea, diarrhea, and fall. Due to patient's symptoms, he presented to the emergency room for evaluation. While in the emergency room, CT scan of the abdomen pelvis revealed a small left basilar pleural effusion with compressive atelectasis, nodule contours of the liver compatible with cirrhosis, paraesophageal and splenic varices compatible with portal hypertension, moderate thickening/edema of the gastric atrium and duodenal bulb compatible with gastritis, moderate to severe edema of the left upper quadrant of the small bowel and distal duodenum may represent infectious/inflammatory enteritis is less likely to be associated with ischemia, cholelithiasis and no evidence of cholecystitis. Patient's case was discussed with [facility] for transfer. They excepted patient but did not have bed availability, so patient was admitted for further management until bed has been made available. During my evaluation of the patient, patient states his symptoms started earlier this morning with abdominal pain, nausea, and shakiness. He voices that he was having some nausea and did not want to vomit in the house, so he went outside and put his foot on a wooden step and unfortunately failed. Patient states he laid there for a second and then got up and called his . He has been having some cramping in his abdomen since this a.m. states that patient's urine has been orange in color; however, while in the emergency room, patient was having some hematuria. Patient is currently on the liver transplant team and almost had a liver transplant in May; however, the donor did survive his/her hospitalization so the liver was transplant was called off. Patient is currently denying any chest pain, lightheadedness, dizziness, fever, chills, rigors, shortness of breath, dyspnea, or headache. Additional pertinent vitals obtained include a red blood cell count of 3.18, hemoglobin 11.1, hematocrit 33.1, platelet count 49, neutrophils of 84.2%, INR 1.65, sodium 135, chloride 108, lactate 3.7, calcium 7.8, total bilirubin 9.5, AST of 82, alkaline phosphate 132, BNP of 208, albumin of 2.9, and urinalysis revealed 3+ protein/3+ blood in urine/nitrate positive/3+ leukocyte esterase/1+ bacteria. [facility] Disclaimer: The information contained in this section may have been updated after the patient was seen, as this information can be updated by other users. Medical History Bronchitis History of impacted cerumen Renal stone Impotence Will give Cialis to try off at patient's request. Edema Related to his liver failure. Heart murmur I think this is related to the fluid shifts secondary to his liver failure. This was a flow murmur to my hearing today. Again we will send him to cardiology just for establishment and continued follow-up of care. Anemia His anemia is also related to his underlying hepatitis. Again being followed by Spermatocele of epididymis See above. Varicocele See above. Liver cirrhosis Epididymitis Bilateral impacted cerumen Chronic sinusitis Migraine Thrombocytopenia Abnormal EKG Near syncope HLD (hyperlipidemia) HTN (hypertension) Surgical History History of colonoscopy H/O hernia repair Family History Other Asthma Cancer Diabetes Social History Smoking Status: Never smoker alcohol intake: current alcohol intake frequency: a few times a week substance use type: denies use current occupational status: employed Travel in the last 8 weeks?: None household members: family housing: house Have you lived/traveled outside US in past 30 days?: No Contact w/someone who lives/traveled outside US past 30 days?: No Exposure to someone with infectious disease in past 14 days?: No Do you have a fever (greater than 100.4 F or 38 C)?: No Have you tested positive for COVID-19?: No Exposed to someone with COVID-19 in past 14 days?: No Do you have a sore throat?: No Do you have a cough?: No Do you have any weakness?: No Do you have any diarrhea?: No Are you experiencing any unusual bleeding?: No Do you have any muscle aches/pain?: No Do you have any abdominal pain?: No Are you experiencing loss of taste or smell?: No Other Medical History Have you received the Pneumonia Vaccine: No Review of Systems Review of Systems Review of systems:: pertinent systems reviewed and negative unless documented below Constitutional Constitutional: Reports body ache(s) and Reports lethargy Eyes Eyes: Reports system reviewed and no additional complaints, except as documented ENT Ears, Nose, Mouth, and Throat: Reports system reviewed and no additional complaints, except as documented *Cardiovascular Cardiovascular: Reports system reviewed and no additional complaints, except as documented *Respiratory Respiratory: Reports system reviewed and no additional complaints, except as documented *Gastrointestinal Gastrointestinal: Reports abdominal pain and Reports diarrhea *Genitourinary Genitourinary: Reports hematuria *Musculoskeletal Musculoskeletal: Reports system reviewed and no additional complaints, except as documented Integumentary/Breasts Skin/Breast: Reports system reviewed and no additional complaints, except as documented *Neurologic Neurologic: Reports system reviewed and no additional complaints, except as documented Psychiatric Psychiatric: Reports system reviewed and no additional complaints, except as documented Endocrine Endocrine: Reports system reviewed and no additional complaints, except as documented Hematologic/Lymphatic Hematologic/Lymphatic: Reports system reviewed and no additional complaints, except as documented Allergic/Immunologic Allergic/Immunologic: Reports system reviewed and no additional complaints, except as documented Meds Home Medications and Allergies Home Medications ?Medication ?Instructions ?Recorded ?Confirmed ?Type furosemide 20 mg tablet 20 mg PO DAILY 07/15/2304/08 History omeprazole 20 mg capsule,delayed 20 mg PO DAILY 07/20/25 History release spironolactone 50 mg tablet 50 mg PO DAILY 07/15/23 History calcium 600 mg (as 1 tab PO BID 05/28/25 History carbonate)-vitamin D3 10 mcg (400 unit) tablet ergocalciferol (vitamin D2) 1,250 1,250 mcg PO 07/20/25 History mcg (50,000 unit) capsule (Vitamin D2) rifaximin 550 mg tablet (Xifaxan) 550 mg PO BID 07/20/25 History calcitriol 0.25 mcg capsule 0.25 mcg PO .5xw 07/20/25 07/20/25 History calcium 600 mg (as carbonate)-vit 1 tab PO DAILY 07/2007/20/25 History D3 20 mcg (800 unit) chewable tablet (Caltrate plus D) carvedilol 3.125 mg tablet 3.125 mg PO DAILY 07/20/25 07/20/25 History levofloxacin 500 mg tablet 500 mg PO DAILY 7 days #7 t abs 07/20/25 07/20/25 Rx New Prescriptions to Start Prescriptions: Allergies Allergy/AdvReac Type Severity Reaction Status Date / Time lisinopril AdvReac cough Verified 07/20/25 09:38 Exam Data for Last 24 hours Vital signs and Labs for Last 24 Hours: Temp Pulse Resp BP Pulse Ox O2 Del Method 98.3 F 82 16 110/57 L 98 Room Air 09/18/25 22:06 09/18/25 22:06 09/18/25 22:06 09/18/25 22:06 09/18/25 22:06 09/18/25 22:06 Laboratory Results - last 24 hr 09/18/25 18:32: WBC 10.0, RBC 3.18 L, Hgb 11.1 L, Hct 33.1 L, MCV 104.1 H, MCH 34.9 H, MCHC 33.5, RDW 17.1, Plt Count 49 L*, MPV 11.4 H, Neut % (Auto) 84.2 H, Lymph % (Auto) 9.4 L, [place] % (Auto) 5.4, Eos % (Auto) 0.2, Baso % (Auto) 0.4, Neut # (Auto) 8.4 H, Lymph # (Auto) 0.9, [place] # (Auto) 0.5, Eos # (Auto) 0.0, Baso # (Auto) 0.0, PT 17.6 H, INR 1.65 H, APTT 38.0 H, Sodium 135 L, Potassium 4.9, Chloride 108 H, Carbon Dioxide 25, Anion Gap 6.9, BUN 20, Creatinine 1.10, Estimated Creat Clear 92, Estimated GFR 67, Est GFR ( Amer) 82, Glucose 90, Lactate 3.7 H, Calcium 7.8 L, Total Bilirubin 9.5 H, AST 82 H, ALT 47, Alkaline Phosphatase 135 H, Total Protein 6.9, Albumin 2.9 L, Globulin 4.0 H, Albumin/Globulin Ratio 0.7 L, Lipase 26, Plasma/Serum Alcohol < 10 09/18/25 19:00: NT-Pro-B Natriuret Pep 280 H 09/18/25 19:10: Urine Color Red, Urine Appearance Turbid, Urine pH 6.5, Ur Specific [place] 1.020, Urine Protein 3+ A, Urine Glucose (UA) Trace, Urine Ketones 1+, Urine Blood 3+ A, Urine Nitrate Positive A, Urine Bilirubin Nega tive, Urine Urobilinogen 4.0, Ur Leukocyte Esterase 3+ A, Urine RBC Tntc, Urine WBC Tntc, Ur Squamous Epith Cells 3-5, Urine Bacteria 1+, Urine Mucus 1+ I & O for Last 24 hours: Intake & Output 09/15/25 09/16/25 09/17/25 09/18/25 23:59 22:59 23:59 23:59 Intake Total 100 / 100 Balance 100 / 100 Weight 96.162 kg Constitutional Constitutional: no acute distress, obese and cooperative *Routine HEENT Exam Head: Present normocephalic and atraumatic Eye: Present EOMI, normal accommodation and conjunctival icterus ENT: Present mucous membranes moist and mucous membranes dry *Routine Neck Exam Neck: Present supple, full ROM and trachea midline *Routine Respiratory Exam Respiratory: Present CTA bilaterally, normal respiratory effort, able to speak in complete sentences and symmetric chest movement *Routine Cardiovascular Exam Cardiovascular: Present RRR, Normal S1 and Normal S2 *Routine Abdominal Exam Abdominal: Present normoactive bowel sounds, distended, firm and obese *Routine Rectal Exam Rectal:: deferred *Routine Genitalia Exam Genitalia:: deferred *Routine Extremities Exam Extremities: Present edema, full ROM, pulses intact and normal capillary refill Routine Back/Spine/Pelvis Exam Back/Spine: Present full ROM *Routine Skin Exam Skin: Present intact, dry, warm and jaundice *Routine Neurological Exam Neurological: Present alert, oriented X3, CN II-XII intact, moving all extremities and normal speech Routine Psychiatric Exam Psychiatric: Present normal affect, normal thought process, cooperative, good insight and good judgment H&P: Result Impressions 65-year-old male presents with known cirrhosis presents decompensated with urinary tract infection and new hematuria Assessment and Plan *Assessment and plan (1) Cirrhosis of liver: Status: Acute Qualifiers: Hepatic cirrhosis type: other cirrhosis Qualified Code(s): K74.69 - Other cirrhosis of liver Category: Medical Code(s): K74.60 - Unspecified cirrhosis of liver (2) Ascites: Status: Acute Qualifiers: Ascites type: other type Qualified Code(s): R18.8 - Other ascites Category: Medical Code(s): R18.8 - Other ascites (3) Thrombocytopenia: Status: Acute Category: Medical Code(s): D69.6 - Thrombocytopenia, unspecified (4) Coagulopathy: Status: Acute Category: Medical Code(s): D68.9 - Coagulation defect, unspecified (5) Lactic acidosis: Status: Acute Category: Medical Code(s): E87.20 - Acidosis, unspecified (6) Hematuria: Status: Acute Qualifiers: Hematuria type: gross Qualified Code(s): R31.0 - Gross hematuria Category: Medical Code(s): R31.9 - Hematuria, unspecified (7) Esophageal varices: Status: Acute Qualifiers: Esophageal varices bleeding: without bleeding Esophageal varices type: unspecified type Qualified Code(s): I85.00 - Esophageal varices without bleeding Category: Medical Code(s): I85.00 - Esophageal varices without bleeding (8) Hypocalcemia: Status: Acute Category: Medical Code(s): E83.51 - Hypocalcemia (9) UTI (urinary tract infection): Status: Acute Qualifiers: Hematuria presence: with hematuria Urinary tract infection type: site unspecified Qualified Code(s): N39.0 - Urinary tract infection, site not specified; R31.9 - Hematuria, unspecified Category: Medical Code(s): N39.0 - Urinary tract infection, site not specified Plan Assessment: Decompensated liver cirrhosis Thrombocytopenia Ascites Coagulopathy Esophageal varices Concerns for spontaneous bacterial peritonitis - Current sodium MELD score is 24 it was 18 in August; Child-Alexis class B - Once patient has a bed at the [facility] we will transition patient to tertiary facility - Will continue to treat for potential spontaneous bacterial peritonitis-per my evaluation there is not a drainable pocket of ascites fluid that is safe to remove the majority of fluid visualized is around the spleen and liver - Will consider GI consultation while patient here Urinary tract infection Hematuria - Patient's urine was orange and now he had his first episode of blood in urine - Since patient is having active bleeding we will give 1 unit of platelets - Type and screen - Patient is currently not having any obstructive urinary flow - Will monitor hematuria and if patient has obstructive urinary flow we will place CBI - Will monitor patient's urine culture and tailor antibiotics to culture and sensitivity once profile - Will continue to treat with 2 g of Rocephin to cover urinary tract infection and possible spontaneous bacterial peritonitis Lactic acidosis - Most likely in setting of liver cirrhosis Cholelithiasis without cholecystitis - This was seen on imaging Hypocalcemia - Corrected is 8.7 Gastritis - This was seen on imaging - 40 mg of Protonix p.o. daily Plan: Admit patient to the MedSurg unit Activity as tolerated Fall risk SCDs to bilateral lower EXTR Saline lock Cardiac diet Will obtain ammonia level in a.m. CBC/CMP daily 2 g Rocephin IV daily 2 mg morphine IV push every 4 hours as needed severe pain 4 mg of Zofran IV push every 8 hours pain nausea vomiting/blood cultures x 2 Full code I will discussed this case with attending physician Dr. Talley and I look forward to more input
--- NOTE | 2025-09-18 22:24 | PC.NURSE ---
patient arrived to the floor via wheelchair @22:21
[2025-09-18 22:37] LABS: Reflex Lactic Add Lactic Reflex
[2025-09-18] MEDS: MORPHINE 4MG/ML SYRINGE 2 MG IV (23:29)
[2025-09-18] MEDS: ONDANSETRON 4MG/2ML VIAL 4 MG IV (23:30)
[2025-09-19] VITALS (12 sets, daily range): BP systolic 97–126; BP diastolic 54–72; PULSE 75–83; RESP 16–18; TEMP 36.5–37.1; O2SAT 94–98; BMI 33.0
[2025-09-19 00:22] LABS: Lactic Acid Follow Up (RFLX 1) 3.9 mmol/L (0.7-2.1)
[2025-09-19 02:02] LABS: Reflex Lactic (2 hrs) Add Lactic Reflex
[2025-09-19 02:44] LABS: Lactic Acid Follow up (RFLX 2) 3.4 mmol/L (0.7-2.1)
--- NOTE | 2025-09-19 03:17 | PC.NURSE ---
Pt new admit this shift. AOx4, pleasant. Pt c/o some abd pain and nausea when he arrived to the floor, which was treated with prn medications per MAR. Pt reports relief. Standby assist to bathroom. Currently resting in bed with eyes closed. Respirations even and unlabored. Bed is low, locked, and call light is in reach. at bedside.
[2025-09-19 06:17] LABS: Albumin Level 2.2 g/dl (3.5-5.0); Chloride 102 mmol/L (98-107)
[2025-09-19 06:18] LABS: Hematocrit 27.4 % (42.0-52.0); Immature Granulocytes % 0.4 %; Mean Corpuscular HGB Conc 33.9 g/dL (31.8-35.4); Mean Corpuscular Hemoglobin 34.7 pg (27.0-31.2); Mean Corpuscular Volume 102.2 fl (80-94); Nucleated Red Blood Cells % 0 %; Potassium 3.9 mmoL/L (3.5-5.1); Red Blood Count 2.68 M/mm3 (4.60-6.20); Red Cell Distribution Width-SD 63.4 fL; Sodium 128 mmol/L (136-145); White Blood Count 9.7 K/mm3 (4.8-10.8)
[2025-09-19 06:20] LABS: Alanine Aminotransferase 34 U/L (12-78); Anion Gap 6.9 mEq/L (5-15); Aspartate Amino Transferase 43 U/L (17-59); Blood Urea Nitrogen 23 mg/dl (9-20); Carbon Dioxide 23 mmol/L (22.0-30.0); Creatinine Clearance Estimated 104 mL/min (50-200); Creatinine,Serum 1.00 mg/dl (0.66-1.25); Estimated Glomerular Filt Rate 75 ml/min (>60); GFR (African American) 91 ML/MIN (>60); Platelet Count 43 K/mm3 (142-424)
[2025-09-19 06:21] LABS: Albumin/Globulin Ratio 0.6 (1.1-1.8); Alkaline Phosphatase 108 U/L (38-126); Bilirubin,Total 9.0 mg/dl (0.2-1.3); Calcium 7.2 mg/dl (8.4-10.2); Globulin 3.4 g/dL (1.3-3.2); Glucose 105 mg/dl (74-100); Total Protein,Serum 5.6 g/dl (6.3-8.2)
[2025-09-19 06:25] LABS: Ammonia 51 umol/L (9-30); Hemoglobin 9.3 g/dL (14.1-18.0)
--- NOTE | 2025-09-19 07:34 | HMH.PHAINT1 ---
Pharmacy Intervention Comments: HOME MEDICATION LIST VERIFIED USING LIST FROM OUTPATIENT PHARMACY AND PT INTERVIEW WITH
[2025-09-19] MEDS: FUROSEMIDE 20MG TABLET 20 MG PO (12:27)
[2025-09-19] MEDS: SPIRONOLACTONE 25MG TABLET 50 MG PO (12:27)
--- OUTSIDE RECORDS SUMMARY | 2025-09-19 14:24 | XMS_ITS | Encounter Summary ---
Author Organization Healthcare Address [address] [place] [address] Care Team Providers Care Library Circulation Clerk Name Role Phone Ruma Hernández PARKS AND RECREATION WORKER Unavailable [phone] Chris Medel MD Primary Care Provider [phone] Encounter Details Date Type Department Care Team (Late st Contact Info) Description 07/05/2025 Results Follow-Up [facility] [address] [place] [address] Meaghan Le, RN [facility] [id number] [address] [place] [address] Social History Tobacco Use Types [...] week 02/19/2025 How often do you attend [facility] or [facility] services? More than 4 times [...] 06/15/2025 [facility] of Occupat ional [facility] - Occupational Stress Questionnaire Answer Date [...] drink first t luisa in the morning (EYE-SUBACUTE NURSE) to steady your nerves or to get rid of a hangover? 0 06/14/2025 CAGE Questionnaire Score 0 025 Utilities Answer Date Recorded In the past 12 months has [employer], gas, oil, or water [employer] threatened to shut off services in your [...] Upcoming Encounters Date Type Department Care Team ([facility] st Contact Info) Description 10/03/2025 12:45 PM EST Office Visit Medical Office Building Urology [address] [facility] [facility], [address] [place] [address] Suhail Brock MD [address] [facility] [address] [place] [address] 10/18/2025 4:20 PM EST Office Visit Professional [facility] [address] [facility] [facility], [address] [place] [address] Moustapha Katz MD [address] [facility] [address] [place] [address] 12/12/2025 8:30 AM EST Clinical Support [facility] [address] [place] [address] 12/12/2025 10:00 AM EST Office Visit [facility] [address] [place] [address] Portia Maguire MD [address] [place] [address] documented as of this encounter Visit Diagnoses [...] documented as of this encounter Care Teams Library Circulation Clerk Relationship Specialty Start Date End Date Chris Medel MD [address] [place] [address] PCP - General 03/14/25 Ruma Hernández APRN [address] [address] Referring Physician Gastroenterology 07/30/23 documented as of this encounter
--- OUTSIDE RECORDS SUMMARY | 2025-09-19 14:24 | XMS_ITS | Encounter Summary ---
Author Organization [facility] Address [address] [place] [address] Care Team Providers Care Civil Engineer Land Development Name Role Phone Unavailable Primary Care Provider [...] release of HIV test results or diagnoses. [id number] Health Encounter Details Date Type Department Care Team (Late st Contact Info) Description 07/31/[address] [facility] Liver Transplant at [address] [address] Chapito Alcantar RN Social History Tobacco Use [...]
--- OUTSIDE RECORDS SUMMARY | 2025-09-19 14:25 | XMS_ITS | Encounter Summary ---
Author Organization [facility] Address [address] [place] [address] Care Team Providers Care Gse Mechanic Name Role Phone Unknown, Attending Provider [...] release of HIV test results or diagnoses. [id number] Reason for Referral * Imaging/Cardiovascular Scan (Routine) - New Request Specialty Diagnoses / Procedures Referred By Gianna reyes Referred To Contact Radiology Procedures CT Abdomen and or Pelvis Outside Exam System, Provider Not In [address] [address] Referral ID Status Reason Start Date Expiration Date V isits Requested Visits Authorized [id number] New Request 09/08/2025 03/07/2026 1 1 Encounter Details Date Type Department Care Team (Late st Contact Info) Description 04/21/2024 Orders Only EXTERNAL PROV RESULTS [address] [place] [address] System, Provider Not In Social History Tobacco [...] on filedocumented in this encounter Care Teams Gse Mechanic Relationship Specialty Start Date End Date Unknown, Attending Provider PCP - General 08/29/2508/16 System, Provider Not In PCP - General 09/10/25 documented as of this encounter
--- OUTSIDE RECORDS SUMMARY | 2025-09-19 14:25 | XMS_ITS | Encounter Summary ---
Author Organization [facility] Address [address] [place] [address] Care Team Providers Care Soaping Department Supervisor Name Role Phone Unknown, Attending Provider [...] release of HIV test results or diagnoses. [id number] Health Encounter Details Date Type Department Care Team (Late st Contact Info) Description 09/13/2024 Orders Only EXTERNAL PROV RESULTS [address] [place] [address] System, Provider Not In Social History [...] on filedocumented in this encounter Care Teams Soaping Department Supervisor Relationship Specialty Start Date End Date Unknown, Attending Provider PCP - General 08/29/2508/16 System, Provider Not In PCP - General 09/10/25 documented as of this encounter
--- OUTSIDE RECORDS SUMMARY | 2025-09-19 14:25 | XMS_ITS | Encounter Summary ---
Author Organization Healthcare Address [address] [place] [address] Care Team Providers Care Cafeteria Server Name Role Phone Ruma Hernández STEAM METER READER Unavailable [phone] Chris Medel MD Primary Care Provider [phone] Encounter Details Date Type Department Care Team (Late st Contact Info) Description 06/14/2025 Results Follow-Up [facility] [address] [place] [address] Meaghan Le, RN [facility] [id number] [address] [place] [address] Social History Tobacco Use Types [...] do you attend [facility] or [employer] services? More than 4 times [...] 06/15/2025 [facility] of Occupat ional [facility] - Occupational Stress Questionnaire Answer [...] drink first t luisa in the morning (EYE-SADDLE MECHANIC) to steady your nerves or to get rid of a hangover? 0 06/14/2025 CAGE Questionnaire Score 0 025 Utilities Answer Date Recorded In the past 12 months has [employer], gas, oil, or water [employer] threatened to shut off services in your [...] Urology [address], [address] [place] [address] Suhail Brock MD [address] [place] [address] 10/18/2025 4:20 PM EST Office Visit Professional [facility] [address], [address] [place] [address] Moustapha Katz MD [address] [facility] [address] [place] [address] 12/12/2025 8:30 AM EST Clinical Support [facility] [address] [facility] [address] [place] [address] 12/12/2025 10:00 AM EST Office Visit [facility] [address] [facility] [address] [place] [address] Portia Maguire MD [address] [facility] [address] [place] [address] documented as of this encounter [...] documented as of this encounter Care Teams Cafeteria Server Relationship Specialty Start Date End Date Chris Medel MD [address] [place] [address] PCP - General 03/14/25 Ruma Hernández APRN [address] [place] [address] Referring Physician Gastroenterology 07/30/23 documented as of this encounter
--- OUTSIDE RECORDS SUMMARY | 2025-09-19 14:25 | XMS_ITS | Encounter Summary ---
Author Organization Healthcare Address [address] [place] [address] Care Team Providers Care Marriage Performer Name Role Phone Ruma Hernández MARINE CARGO INSPECTOR Unavailable [phone] Chris Medel MD Primary Care Provider [phone] Encounter Details Date Type Department Care Team (Late st Contact Info) Description 07/19/2025 Results Follow-Up [facility] [address] [place] [address] Meaghan Le, RN [id number] [address] [place] [address] Social History Tobacco Use Types [...] you attend [facility] or latter day services? More than 4 [...] 06/15/2025 [facility] - Occupational Stress Questionnaire Answer Date [...] drink first t luisa in the morning (EYE-COMMUNICATION ENGINEER) to steady your nerves or to get rid of a hangover? 0 06/14/2025 CAGE Questionnaire Score 0 025 Utilities Answer Date Recorded In the past 12 months has th e electric, gas, oil, or water [employer] threatened to shut off services in your [...] ([facility] st Contact Info) Description 10/03/2025 12:45 PM EST Office Visit Medical Office Building Urology [address] [facility], [address] [place] [address] Suhail Brock MD [address] [place] [address] 10/18/2025 4:20 PM EST Office Visit [facility] [address] , [address] [place] [address] Moustapha Katz MD [address] [place] [address] 12/12/2025 8:30 AM EST Clinical Support [facility] [place] [address] [facility] [address] [place] [address] 12/12/2025 10:00 AM EST Office Visit [facility] [place] [address] [facility] [address] [place] [address] Portia Maguire MD [address] [facility] [address] [place] [address] documented as of this encounter [...] documented as of this encounter Care Teams Marriage Performer Relationship Specialty Start Date End Date Chris Medel MD [address] [place] [address] PCP - General 03/14/25 Ruma Hernández APRN [address] [facility] [address] [place] [address] Referring Physician Gastroenterology 07/30/23 documented as of this encounter
--- OUTSIDE RECORDS SUMMARY | 2025-09-19 14:25 | XMS_ITS | Clinical Summary ---
Author Organization [facility] Address [address] [place] [address] Care Team Providers Care Keno Terminal Operator Name Role Phone ToniUrban morataya DO Primary Care Provider [phone] Allergies Active Allergy Reactions Criticality Noted Date [...] Recently Relevant to Health Maintenance Insurance [facility] P[facility] Care Teams Keno Terminal Operator Relationship Specialty Start Date End Date Urban Brantley DO [address] [place], [place] [id number] PCP - General Internal Medicine 03/22/23
--- OUTSIDE RECORDS SUMMARY | 2025-09-19 14:25 | XMS_ITS | Encounter Summary ---
[facility] Organization [facility] Address [address] [place] [address] Care Team Providers Care Review Consultant Name Role Phone KaronUrban Hosea CAMARA Primary Care Provider [phone] Encounter Details Date Type Department Care Team (Late st Contact Info) Description 10/14/2023 Telephone [facility] GASTROENTEROLOGY [address] [facility] [address] [place] [address] Ruma Hernández, DRESS DRAPER 17[address] [facility] [address] [place], [place] [id number] Social History Tobacco Use Types Packs/Day Years [...] on filedocumented in this encounter Care Teams Review Consultant Relationship Specialty Start Date End Date Urban Brantley DO [address] [place] [address] PCP - General Internal Medicine 03/22/23 documented as of this encounter
--- OUTSIDE RECORDS SUMMARY | 2025-09-19 14:25 | XMS_ITS | Encounter Summary ---
Author Organization Healthcare Address [address] [place] [address] Care Team Providers Care Sponge Maker Name Role Phone Ruma Hernández DIESEL LOCOMOTIVE ENGINEER Unavailable [phone] Chris Medel MD Primary Care Provider [phone] Encounter Details Date Type Department Care Team (Late st Contact Info) Description 06/13/2025 Telephone [facility] [address] [place] [address] Zeferino Trejo, PharmD Social History [...] you attend [facility] or mandaeism services? More than 4 [...] all 06/15/2025 [facility] - Occupational Stress Questionnaire Answer Date [...] any time in the past 12 m [facility], were you homeless or [...] drink first t luisa in the morning (EYE-WATER PROOFER) to steady your nerves or to get rid of a hangover? 0 06/14/2025 CAGE Questionnaire Score 0 025 Utilities Answer Date Recorded In the past 12 months has th e [employer], gas, oil, or water [employer] threatened to shut off services in your [...] Behavior (Lifetime) No 9:23 PM EDT Chapito Jarertt RN documented as of this encounter Miscellaneous [...] [address] [facility], [address] [place] [address] Suhail Brock MD [address] [place] [address] 10/18/2025 4:20 PM EST Office Visit [facility] [address] [facility], [address] [place] [address] Moustapha Katz MD [address] [facility] [address] [place] [address] 12/12/2025 8:30 AM EST Clinical Support [facility] [address] [facility] [address] [place] [address] 12/12/2025 10:00 AM EST Office Visit [facility] [place] [address] [facility] [address] [place] [address] Portia Maguire MD [address] [facility] [address] [place] [address] documented as of this encounter [...] documented as of this encounter Care Teams Sponge Maker Relationship Specialty Start Date End Date Chris Medel MD [address] [place] [address] PCP - General 03/14/25 Ruma Hernández APRN [address] [facility] [address] [place] [address] Referring Physician Gastroenterology 07/30/23 documented as of this encounter
--- OUTSIDE RECORDS SUMMARY | 2025-09-19 14:25 | XMS_ITS | Encounter Summary ---
Author Organization [facility] Address [address] [place] [address] Care Team Providers Care Fruit Checker Name Role Phone Unknown, Attending Provider Primary [...] release of HIV test results or diagnoses. [id number] Reason for Referral * Imaging/Cardiovascular Scan (Routine) - New Request Specialty Diagnoses / Procedures Referred By Gianna reyes Referred To Contact Radiology Procedures CT Abdomen and or Pelvis Outside Exam System, Provider Not In [address] [address] Referral ID Status Reason Start Date Expiration Date V isits Requested Visits Authorized [id number] New Request 09/08/2025 03/07/2026 1 1 Encounter Details Date Type Department Care Team (Late st Contact Info) Description 03/14/2025 Orders Only EXTERNAL PROV RESULTS [address] [place] [address] System, Provider Not In Social History Tobacco [...] on filedocumented in this encounter Care Teams Fruit Checker Relationship Specialty Start Date End Date Unknown, Attending Provider PCP - General 08/29/2508/16 System, Provider Not In PCP - General 09/10/25 documented as of this encounter
--- OUTSIDE RECORDS SUMMARY | 2025-09-19 14:25 | XMS_ITS | Encounter Summary ---
Author Organization [facility] Address [address] [place] [address] Care Team Providers Care Voucher Examiner Name Role Phone Unknown, Attending Provider Primary [...] release of HIV test results or diagnoses. [id number] Encounter Details Date Type Department Care Team (Late st Contact Info) Description 06/13/2025 Orders Only EXTERNAL PROV RESULTS [address] [place] [id number] System, Provider Not In Social History Tobacco [...] on filedocumented in this encounter Care Teams Voucher Examiner Relationship Specialty Start Date End Date Unknown, Attending Provider PCP - General 08/29/2508/16 System, Provider Not In PCP - General 09/10/25 documented as of this encounter
--- OUTSIDE RECORDS SUMMARY | 2025-09-19 14:25 | XMS_ITS | Encounter Summary ---
[facility] Address [address] [place] [address] Care Team Providers Care Carton Folder Name Role Phone KaronUrban Hosea CAMARA Primary Care Provider [phone] Encounter Details Date Type Department Care Team (Late st Contact Info) Description 10/14/[address] [facility] GA[facility] [address] [facility] [address] [place] [address] Ruma Hernández, MEDICAL LIAISON 17[address] [facility] [address] [place], [place] [id number] Social History Tobacco Use Types Packs/Day Years [...] on filedocumented in this encounter Care Teams Carton Folder Relationship Specialty Start Date End Date Urban Brantley DO [address] [place] [address] PCP - General Internal Medicine 03/22/23 documented as of this encounter
--- OUTSIDE RECORDS SUMMARY | 2025-09-19 14:25 | XMS_ITS | Clinical Summary ---
Author Organization [facility] Address [address] [place] [id number] Care Team Providers Care Clinical Trial Coordinator Name Role Phone System, Provider Not In [...] therelease of HIV test results or diagnoses. [id number] Allergies Active Allergy Reactions Criticality Noted [...] mouth daily for 2 doses. 14 tablet 09/19/2025 10:08 AM EST 5 09/21/20 25 Active carvediloL (COREG) 3.125 MG tablet [...] Encounters Date Type Department Care Team Description 09/19/2025 Telephone [facility] Liver Transplant at [facility] [address] [facility] [address] [place] [address] Chapito Alcantar, SILVIO 09/18/2025 Hospital Encounter [facility] [address] [place] [phone] 09/18/2025 Pharmacy Services [facility] [address] [place] [address] Delaney Bahena, RXT 09/17/2025 Refill [facility] I.D.C. at [facility] [address] [facility] [address] [place] [phone] Johnny Dubois RN 09/17/2025 Telephone [facility] at [facility] [address] [facility] [address] [place] [phone] Navi Sims MD 09/13/2025 Chart Note [facility] Liver Transplant at [address] [phone] Chapito Alcantar, RN Multi-disciplinary Hepatobiliary Case Conference Review: 09/11/2025 Telephone [facility] Liver Transplant at [place] [address] [place] [phone] Chapito Alcantar, SILVIO 09/11/2025 Chart Note [facility] Kidney Transplant at [place] [address] [place] [address] Ailin Wells Faxed Clinical for Listing/Txp Auth 09/11/2025 Telephone [facility] Liver Transplant at [address] [phone] Chapito Alcantar, SILVIO 09/10/2025 4:35 PM EDT [facility] [address] [place] [phone] Buddy Zimmerman MD Alcoholic cirrhosis of liver with ascites (CMS-HCC); Pre-transplant evaluation for chronic liver disease 09/10/2025 2:00 PM EDT Office Visit [facility] Liver Transplant at [place] [address] [place] [phone] Unknown, Attending Provider Navi Sims MD Pre-transplant evaluation for chronic liver disease (Primary Dx); Encounter for pre-transplant evaluation for liver transplant 09/10/2025 1:30 PM EDT Office Visit [facility] Liver Transplant at [address] [phone] Lane Troy MD Alcoholic cirrhosis of liver with ascites (CMS-HCC) (Primary Dx); Pre-transplant evaluation for chronic liver disease 09/10/2025 1:00 PM EDT Office Visit [facility] Liver Transplant at [address] [phone] Buddy Zimmerman MD Pre-transplant evaluation for chronic liver disease (Primary Dx); Alcoholic cirrhosis of liver with ascites (CMS-HCC) 09/10/2025 12:00 PM EDT Office Visit [facility] Anesthesia Transplant at [address] [phone] Unknown, Attending Provider Stefan Gonzalez MD Pre-transplant evaluation for chronic liver disease (Primary Dx) 09/10/2025 10:03 AM EDT - 09/10/2025 11:59 PM EDT Hospital Encounter [facility] [address] [place] [address] Nigel Reaves MD Pre-transplant evaluation for chronic liver disease Discharge Disposition: Home or Self Care WITHOUT Home Care Services 09/10/2025 Social Work [facility] Liver Transplant at [address] [phone] Michelle Ho, MADHAV, METAL FABRICATOR 09/10/2025 Nutrition [facility] Kidney Transplant at [place] [address] [place] [address] Oskar Arango, RD 09/10/2025 Chart Note [facility] Liver Transplant at [address] [phone] Chapito Alcantar, RN Alcoholic cirrhosis of liver with ascites (CMS-HCC) (Primary Dx); Pre-transplant evaluation for chronic liver disease 09/08/2025 8:34 PM EDT - 09/08/2025 11:59 PM EDT Hospital Encounter [facility] Radiology [address] [place] [address] System, Provider Not In Discharge Disposition: Home or Self Care WITHOUT Home Care Services 09/08/2025 8:34 PM EDT - 09/08/2025 11:59 PM EDT Hospital Encounter [facility] Radiology [address] [place] [address] System, Provider Not In Discharge Disposition: Home or Self Care WITHOUT Home Care Services 09/08/2025 8:31 PM EDT - 09/08/2025 8:33 PM EDT Hospital Encounter [facility] Radiology [address] [place] [address] System, Provider Not In Discharge Disposition: Home or Self Care WITHOUT Home Care Services 09/08/2025 8:31 PM EDT - 09/08/2025 8:33 PM EDT Hospital Encounter [facility] Radiology [address] [place] [address] System, Provider Not In Discharge Disposition: Home or Self Care WITHOUT Home Care Services 09/05/2025 Telephone [facility] Liver Transplant at [address] [place] [address] Chapito Alcantar, SILVIO 09/05/2025 Telephone [facility] Liver Transplant at [address] [address] [place] [phone] Cori Dover MA 09/05/2025 Abstract [facility] Liver Transplant at [address] [address] [place] [address] Chapito Alcantar, RN Alcoholic cirrhosis of liver with ascites (CMS-HCC) (Primary Dx); Ascites due to alcoholic cirrhosis (CMS-HCC); Hepatic encephalopathy (CMS-HCC); Esophageal varices without bleeding, unspecified esophageal varices type (CMS-HCC); Pre-transplant evaluation for chronic liver disease 08/13/2025 Telephone [facility] Liver Transplant at [address] [phone] Cori Dover MA 08/13/2025 Telephone [facility] Liver Transplant at [address] [phone] Cori Dover MA 08/13/2025 Orders Only [facility] Liver Transplant at [address] [phone] Chapito Alcantar RN Pre-transplant evaluation for chronic liver disease (Primary Dx) 08/13/2025 Chart Note [facility] Kidney Transplant at [address] [phone] Ailin Wells Patient is financially cleared for liver transplant evaluation 08/02/2025 Chart Note [facility] Liver Transplant at [address] [phone] Cori Dover MA Liver transplant referral entered. 08/01/2025 Chart Note [facility] Liver Transplant at [address] [phone] Chapito Alcantar, comber tender for liver transplant was received and reviewed. The review notes 07/31/2025 Telephone [facility] Liver Transplant at [address] [phone] Chapito Alcantar, RN from Last 3 Months [...] Colonoscopy Follow Up 1961 Hepatitis C Screening ([place] [facility]) 1961 Immunization: COVID-19 (#1) 1966 HIV Screening 1979 Immunization: Hepatitis A (1 of 2 - Risk 2-dose series) 02/02/1980 Immunization: Pneumococcal ( 1 of 2 - PCV) 02/02/1980 Immunization: Zoster (1 of 2) 02/02/1980 Cologuard (FIT-DNA) 2006 Colonoscopy 2006 Colorectal Cancer Screening (MyChart) 2006 Stool Testing (gFOBT) 2006 Immunization: RSV (Adult) (1 - Risk 60-74 years 1-dose series) 2021 Immunization: Influenza (MyChart) (#1) 2025 Depression Screening 09/10/2026 09/10/2025, 09/10/2025 Diabetes Screening 09/10/2026 09/10/2025 Immunization: DTaP/Tdap/Td ( [...] (Measles, Mumps, Rubella) (09/10/2025 5:03 PM EDT) Pathologist [facility] Mumps IgG Positive 09/10/2025 11:51 PM EDT [facility] MUMPS IGG NUM >300.00(H) 0.0 - 8.9 U/mL 09/10/2025 11:51 PM EDT [facility] Rubella IgG Scr Positive 09/10/2025 11:51 PM EDT [facility] RUB NUM 30.20(H) 0.0 - 0.8 INDEX 09/10/2025 11:51 PM EDT [facility] Rubeola Ab, IgG Positive 09/10/2025 11:50 PM EDT [facility] RUB IGG NUM >300.00(H) 0.00 - 13.40 U/mL 09/10/2025 11:50 PM EDT [facility] Serum 09/10/2025 5:03 PM EDT [...] MD LAB BLOOD ORDERABLES Final Resu lt [facility] [address] [facility]. [address] * Syphilis Screening (Trepia) (09/10/2025 5:03 PM EDT) Treponema Pallidum Negative Negative 09/10/2025 11:55 PM EDT [facility] Comment: No serological evidence of infection with Treponema pallidum (incubating or early primary syphilis cannot be excluded). Serum 09/10/2025 5:03 PM EDT 09/10/2025 10:26 PM EDT us Navi Sims MD LAB BLOOD ORDERABLES Final Resu lt Performing Organization Address [facility] Co de Phone Number [facility] [address] [facility]. [address] * QuantiFERON TB2 Ag (09/10/2025 5:03 PM EDT) QuantiFERON TB2 Ag Value 0.09 09/12/2025 1:19 PM EDT [facility] Plasma 09/10/2025 5:03 PM EDT 09/10/2025 6:29 PM EDT us Navi Sims MD LAB BLOOD ORDERABLES Final Resu lt Performing Organization Address City/[facility]/ZIP Co de Phone Number [facility] [address] [facility]. [address] * QuantiFERON TB1 Ag (09/10/2025 5:03 PM EDT) QuantiFERON TB1 Ag Value 0.08 09/12/2025 1:19 PM EDT [facility] Plasma 09/10/2025 5:03 PM EDT 09/10/2025 6:29 PM EDT us Navi Sims MD LAB BLOOD ORDERABLES Final Resu lt [facility] [address] [place] * QuantiFERON Nil (09/10/2025 5:03 PM EDT) QuantiFERON Nil 0.02 1:19 PM EDT [facility] Plasma 09/10/2025 5:03 PM EDT 09/10/2025 6:29 PM EDT Navi Sims MD LAB BLOOD ORDERABLES Final Resu lt [facility] [address] [place] * QuantiFERON Mitogen (09/10/2025 5:03 PM EDT) QuantiFERON Interpretation Negative Negative 09/12/2025 1:19 PM EDT [facility] Comment:Negative result pilar cates M. tuberculosis infection is NOT likely. Negative results do not preclude tuberculosis infection (especially in immunosuppressed patients). Negative results have a TB antigen minus Nil value less than 0.35 IU/mL. In cases with high suspicion of disease, retesting or additional testing with medical evaluation may be useful. QuantiFERON Mitogen 8.77 09/12 1:19 PM EDT [facility] Plasma 09/10/2025 5:03 PM EDT 09/10/2025 6:29 PM EDT Narrative [facility] - 09/12/2025 1:19 PM EDT [...] MD LAB BLOOD ORDERABLES Final Resu lt [facility] [address] [facility]. [address] * (ABNORMAL) Strongyloides Ab (09/10/2025 5:03 PM EDT) [facility] Strongyloides Ab Positive( A) Negative 09/17/2025 2:56 PM EST [facility] Serum 09/10/2025 5:03 PM EDT 09/17/2025 3:07 PM EST Narrative [facility] - 09/17/2025 3:07 PM EST PERFORMED AT: [address] [id number] COMPLETION ENGINEER: Kevin Holguin MD PHONE: [phone] Navi Sims MD LAB BLOOD ORDERABLES Final Resu lt Performing Organization Address City/[facility]/ZIP Co de Phone Number [facility] [address] [place] [address] * (ABNORMAL) Hepatic Function Panel (09/10/2025 5:03 PM EDT) Only the most recent of2 resultswithin the time period is included. [facility] Total Bilirubin 5.9(H) 0.0 - 1.5 mg/dL 09/10/2025 8:21 PM EDT [facility] Bilirubin, Direct 1.62(H) 0.00 - 0.40 mg/dL 09/10/2025 8:21 PM EDT [facility] AST 40(H) 13 - 39 U/L 09/10/2025 8:21 PM EDT [facility] ALT 29 7 - 52 U/L 09/10/2025 8:21 PM EDT [facility] Alkaline Phosphatase 136(H) 36 - 125 U/L 09/10/2025 8:21 PM EDT [facility] Total Protein 6.2(L) 6.4 - 8.9 g/dL 09/10/2025 8:21 PM EDT [facility] Albumin 2.1(L) 3.5 - 5.7 g/dL 09/10/2025 8:21 PM EDT [facility] Bilirubin, Indirect 4.28(H) 0.00 - 1.10 mg/dL 09/10/2025 8:21 PM EDT [facility] Plasma 09/10/2025 5:03 PM EDT 09/10/2025 5:52 PM EDT us Buddy Zimmerman MD LAB BLOOD ORDERABLES Final Resul t Performing Organization Address [facility] Co de Phone Number [facility] [address] [facility]. [address] * AFP tumor marker (09/10/2025 5:03 PM EDT) Pathologist [facility] AFP-Tumor Marker 2.0 0.0 - 9.0 ng/mL 09/10/2025 8:52 PM EDT [facility] Serum 09/10/2025 5:03 PM EDT 09/10/2025 6:42 PM EDT Narrative [facility] - 09/10/2025 8:52 PM EDT The testing method for AFP is a chemiluminescent immunoassay manufactured by [employer] Concentrations of AFP obtained by different assay methods or kits may vary and cannot be used interchangeably. AFP results cannot be interpreted as absolute evidence of the presence or absence of malignant disease. us Buddy Zimmerman MD LAB BLOOD ORDERABLES Final Resul t Performing Organization Address [facility] Co de Phone Number [facility] [address] [facility]. [address] * ABO/Rh (09/10/2025 5:03 PM EDT) ABO Grouping A 09/10/2025 7:26 PM EDT [facility] Rh Type Positive 09/10/2025 7:26 PM EDT [facility] Blood 09/10/2025 5:03 PM EDT 09/10/2025 6:49 PM EDT us Buddy Zimmerman MD BLOOD BANK TEST ORDERABLES Final Result Performing Organization Address City/[facility] [[email or web address]] de Phone Number [facility] [address] * Toxoplasma gondii antibody, IgG (09/10/2025 5:03 PM EDT) Pathologist [facility] Toxoplasma Gondii IgG <3.0 0.0 - 7.1 IU/mL 09/12/2025 6:21 AM EDT [facility] Comment: Negative <7.2 Equivocal 7.2 - 8.7 Positive >8.7 Serum 09/10/2025 5:03 PM EDT 09/12/2025 7:06 AM EDT Narrative [facility] - 09/12/2025 7:06 AM EDT PERFORMED AT: [facility] [id number] COMPLETION ENGINEER: Mateo Miller, PhD PHONE: [phone] us Navi Sims MD LAB BLOOD ORDERABLES Final Resu lt Performing Organization Address [facility] de Phone Number [facility] [address] * (ABNORMAL) Protime-INR (09/10/2025 5:03 PM EDT) Only the most recent of2 resultswithin the time period is included. Pathologist [facility] Protime 24.2(H) 12.1 - 15.1 seconds 09/10/2025 7:00 PM EDT [facility] INR 2.0(H) 0.9 - 1.1 09/10/2025 7:00 PM EDT [facility] Comment: RECOMMENDED THERAPEUTIC RANGES USING INR : Stable oral anticoagulant therapy: 2.0 - 3.0 Mechanical prosthetic heart valve: 2.5 - 3.5 Recurrent acute myocardial infarction: 2.5 - 3.5 Plasma 09/10/2025 5:03 PM EDT 09/10/2025 6:42 PM EDT us Buddy Zimmerman MD LAB BLOOD ORDERABLES Final Resul t Performing Organization Address [facility] Co de Phone Number [facility] [address] [place] * (ABNORMAL) CBC (09/10/2025 5:03 PM EDT) Pathologist [facility] WBC 4.2 3.8 - 10.8 10E3/uL 09/10/2025 6:57 PM EDT [facility] RBC 3.39(L) 4.20 - 5.80 10E6/uL 09/10/2025 6:57 PM EDT [facility] Hemoglobin 11.4(L) 13.2 - 17.1 g/dL 09/10/2025 6:57 PM EDT [facility] Hematocrit 33.9(L) 38.5 - 50.0 % 09/10/2025 6:57 PM EDT [facility] MCV 100.1(H) 80.0 - 100.0 fL 09/10/2025 6:57 PM EDT [facility] MCH 33.7(H) 27.0 - 33.0 pg 09/10/2025 6:57 PM EDT [facility] MCHC 33.7 32.0 - 36.0 g/dL 09/10/2025 6:57 PM EDT [facility] RDW 18.5(H) 11.0 - 15.0 % 09/10/2025 6:57 PM EDT [facility] Platelets 66(L) 140 - 400 10E3/uL 09/10/2025 6:57 PM EDT [facility] MPV 7.8 7.5 - 11.5 fL 09/10/2025 6:57 PM EDT [facility] Whole Blood 09/10/2025 5:03 PM EDT 09/10/2025 6:33 PM EDT us Buddy Zimmerman MD LAB BLOOD ORDERABLES Final Resul t [facility] [address] * (ABNORMAL) Varicella zoster antibody, IgG (09/10/2025 5:03 PM EDT) Pathologist [facility] Varicella IgG Positive( A) Negative S/CO 09/10/2025 11:49 PM EDT [facility] Comment:Result indicates the presence of detectable VZV IgG antibodies. A positive result is generally indicative of exposure to the pathogen or administration of specific immunoglobulins, but it is no indication of active infection or stage of disease. This test is not approved for determining vaccine-induced immunity to varicella zoster virus. VZV NUM 15.50(H) 0.00 - 0.99 S/CO 09/10/2025 11:49 PM EDT [facility] Serum 09/10/2025 5:03 PM EDT 09/10/2025 10:26 PM EDT Navi Sims MD LAB BLOOD ORDERABLES Final Resu lt Performing Organization Address City/[facility]/ZIP Co de Phone Number [facility] [address] [facility]. [address] * TSH (Thyroid Stimulating Hormone) (09/10/2025 5:03 PM EDT) TSH 2.85 0.45 - 4.12 uIU/mL 09/11/2025 12:13 AM EDT [facility] Serum 09/10/2025 5:03 PM EDT 09/10/2025 6:42 PM EDT Buddy Zimmerman MD LAB BLOOD ORDERABLES Final Resul t Performing Organization Address [facility] Co de Phone Number [facility] [address] [facility]. [address] * Hemoglobin A1c (09/10/2025 5:03 PM EDT) Hemoglobin A1C 4.0 4.0 - 5.6 % 09/10/2025 11:22 PM EDT [facility] Comment: Hemoglobin A1c Interpretation Guidelines: [...] MD LAB BLOOD ORDERABLES Final Resul t [facility] [address] [place] [address], [facility] * (ABNORMAL) Lipid Profile (09/10/2025 5:03 PM EDT) Non-HDL Cholesterol, Calculated 109 0 - 129 mg/dL 09/10/2025 8:21 PM EDT [facility] Comment: Desirable: < 130 mg/dL Above Desirable: 130-159 mg/dL Borderline High: 160-189 mg/dL High: 190-219 mg/dL Very High: > 219 mg/dL Cholesterol, Total 135 0 - 200 mg/dL 09/10/2025 8:21 PM EDT [facility] Triglycerides 60 10 - 149 mg/dL 09/10/2025 8:21 PM EDT [facility] HDL 26(L) 60 - 92 mg/dL 09/10/2025 8:21 PM EDT [facility] Comment: LIPID PROFILE INTERPRETATION CHOLESTEROL,TOTAL(mg/dL) [...] LDL Cholesterol 97 mg/dL 8:21 PM EDT [facility] Plasma 09/10/2025 5:03 PM EDT 09/10/2025 5:52 PM EDT Narrative [facility] - 09/10/2025 8:21 PM EDT Must the patient be fasting for this test?->No LDL cholesterol calculated using the Friedewald equation. us Buddy Zimmerman MD LAB BLOOD ORDERABLES Final Resul t [facility] [address] [place] [address], [facility] * (ABNORMAL) Basic metabolic panel (09/10/2025 5:03 PM EDT) Sodium 142 133 - 146 mmol/L 09/10/2025 8:21 PM EDT [facility] Potassium 3.8 3.5 - 5.3 mmol/L 09/10/2025 8:21 PM EDT [facility] Chloride 110 98 - 110 mmol/L 09/10/2025 8:21 PM EDT [facility] CO2 27 21 - 33 mmol/L 09/10/2025 8:21 PM EDT [facility] Comment:High lactate dehydro genase concentrations in patient samples may cause falsely increased bicarbonate results. If markedly elevated LDH is observed or suspected, please assess results in conjunction with patient`s clinical presentation. In cases of discrepant results, consider evaluating CO2 in with a blood gas order. Anion Gap 5 3 - 16 mmol/L 09/10/2025 8:21 PM EDT [facility] BUN 10 7 - 25 mg/dL 09/10/2025 8:21 PM EDT [facility] Creatinine 0.90 0.60 - 1.30 mg/dL 09/10/2025 8:21 PM EDT [facility] Glucose 79 70 - 100 mg/dL 09/10/2025 8:21 PM EDT [facility] Calcium 7.9(L) 8.6 - 10.3 mg/dL 09/10/2025 8:21 PM EDT [facility] Osmolality, Calculated 292 278 - 305 mOsm/kg 09/10/2025 8:21 PM EDT [facility] EGFR >90 09/10/2025 8:21 PM EDT [facility] Comment: As of 2022, the [...] MD LAB BLOOD ORDERABLES Final Resul t [facility] [address] * ECG 12-Lead (MUSE) (09/10/2025 12:14 PM EDT) 09/10/2025 12:1 4 PM EDT Narrative MUSE - 09/10/2025 3:28 PM EDT Ventricular Rate: 64 BPM Atrial Rate: 64 BPM P-R Interval: 190 ms QRS Duration: 84 ms QT: 464 ms QTc: 478 ms P [place]: 27 degrees R [place]: 58 degrees T [place]: 22 degrees Diagnosis Line: NORMAL SINUS RHYTHM ^ NORMAL ECG ^ No previous ECGs available ^ Confirmed by MD T[facility], [facility] ([id number]) on 09/10/2025 3:28:36 PM us Buddy Zimmerman MD ECG ORDERABLES Final Result MUSE * CT Chest WO contrast (09/10/2025 [...] within the right upper lobe with downstream [id number] within the paramedian right upper lobe apex. [...] Reaves MD IMG CT ORDERABLES Final Result * CT Abdomen and or Pelvis Outside Exam (09/08/2025 8:34 PM EDT) Only the most recent of2 resultswithin the time period is included. Narrative 09/08/2025 8:34 PM EDT Images associated with this accession number were presented to us for comparison to an examination performed here. us Provider Not In System IMG CT ORDERABLES Final R esult * US Outside Exam (09/08/2025 8:34 PM EDT) Only the most recent of2 resultswithin the time period is included. Narrative 09/08/2025 8:34 PM EDT Images associated with this accession number were presented to us for comparison to an examination performed here. us Provider Not In System IMG US ORDERABLES Final R esult * (ABNORMAL) Renal Function Panel w/o EGFR (08/29/2025) Glucose 113 BUN 11 CO2 27(A) 13 - 22 mmol/L Creatinine 0.9 Potassium 4.4 Sodium 139 Chloride 109 Calcium 8.2 EGFR 85 mg/dL Albumin 2.2(A) 3.5 - 5.0 g/dL Blood Historical Provider LAB BLOOD ORDERABLES Nadia l Result from Last 3 Months Insurance [employer] ACCESS [employer] ACCESS Care Teams Clinical Trial Coordinator Relationship Specialty Start Date End Date System, Provider Not In PCP - General 09/10/25
--- OUTSIDE RECORDS SUMMARY | 2025-09-19 14:25 | XMS_ITS | Clinical Summary ---
Author Organization [facility] Address [address] [place] [address] Care Team Providers Care Family Dentist Name Role Phone Ruma Hernández TRIAGE ASSISTANT Unavailable Chris Medel MD Primary Care Provider [phone]- [phone] Allergies Active Allergy Reactions Criticality Noted Date [...] 5 Active ergocalciferol (Vitamin D-2) 1.25 MG (45493 UT) capsule Take 1 capsule by mouth [...] Description 09/12/2025 10:00 AM EDT Office Visit [facility] [address] [facility] [address] [place] [address] Portia Maguire MD Pre-liver transplant, listed (Primary Dx); Cirrhosis of liver with ascites, unspecified hepatic cirrhosis type; Other ascites; Alcoholic cirrhosis, unspecified whether ascites present; Hemochromatosis associated with compound heterozygous mutation in HFE gene; Alcohol use disorder, moderate, in sustained remission; Hepatic encephalopathy (CMS/HCC) 09/12/2025 8:47 AM EDT - 09/12/2025 11:59 PM EDT Hospital Encounter [facility] [address] [place] [address] Pre-liver transplant, listed Discharge Disposition: Home or Self Care 09/12/2025 Results Follow-Up [facility] [place] [address] [phone] Meaghan Le, RN 09/12/2025 Travel 09/11/2025 Travel 09/05/2025 Orders Only [facility] [place] [id number] [place] [phone] Meaghan Le, RN Pre-liver transplant, listed (Primary Dx) 08/31/2025 Results Follow-Up [facility] [place] [id number] [phone] Meaghan Le, SILVIO 08/29/2025 Orders Only [facility] [address] [place] [address] Provider, Historical 08/20/2025 Results Follow-Up [facility] [place] [id number] [phone] Meaghan Le, SILVIO 08/01/2025 Results Follow-Up [facility] [place] [id number] [place] [address] Meaghan Le, SILVIO 07/19/2025 Results Follow-Up [facility] [place] [id number] [place] [address] Meaghan Le, SILVIO 07/11/2025 10:30 AM EDT Office Visit [facility] [place] [id number] [phone] Portia Maguire MD Cirrhosis of liver with ascites, unspecified hepatic cirrhosis type (CMS/HCC) (Primary Dx); Other ascites; Pre-liver transplant, listed; Alcoholic cirrhosis, unspecified whether ascites present (CMS/HCC); Hemochromatosis associated with compound heterozygous mutation in HFE gene; Alcohol use disorder, moderate, in sustained remission 07/11/2025 9:30 AM EDT Social Work [facility] [address] [address] Liliane Jacobs, OMAR 07/11/2025 Travel 07/05/2025 Results Follow-Up [facility] [address] [phone] Meaghan Le RN 06/29/2025 Results Follow-Up [facility] [address] [phone] Meaghan Le, RN 06/25/2025 Telephone [facility] [address] [address] Meaghan Le, RN 06/21/2025 Results Follow-Up [facility] [place] [id number] [phone] Meaghan Le, RN 06/20/2025 Telephone [facility] [address] [address] Meaghan Le, RN from Last 3 Months Immunizations Immunization Administration Dates Next Due Hep B, adult 12/28/2023,06/29/2023,06/02/2023 Family History Medical History Relation Name Comments Diabetes Daughter Gloria Asthma Father Mental illness Father Hearing loss Mother Sera Relation Name Status Comments Daughter Gloria Father Mother Srea Social History Tobacco Use Types Packs/Day Years [...] do you attend [facility] services? More than 4 times [...] do you attend [facility]? More than 4 times [...] [facility] Occup[facility] ional [facility] - Occupational Stress Questionnaire Answer [...] drink first t luisa in the morning (EYE-ANGIO TECHNOLOGIST) to steady your nerves or to get rid of a hangover? 0 06/14/2025 CAGE Questionnaire Score 0 025 Utilities Answer Date Recorded In the past 12 months has th e electric, gas, oil, or water [email or web address] threatened to shut off services in your [...] [facility], [address] [place] [address] Suhail Brock MD [address] [place] [address] 10/18/2025 4:20 PM EST Office Visit Professional [facility] [address] [facility], [address] [place] [address] Moustapha Katz MD [address] [place] [address] 12/12/2025 8:30 AM EST Clinical Support [facility] [address] [place] [address] 12/12/2025 10:00 AM EST Office Visit [facility] [address] [place] [address] Portia Maguire MD [address] [facility] [address] [place] [address] Health Maintenance Due Date Last [...] - Risk 60-74 years 1-dose series) 2021 [id number] Vaccine ( - season) 2025 UKY-Influenza Vaccine [...] are consistent with and integrated into the [employer] Liver Diseases [...] using the following sequences: coronal single shot [id number] fast spin echo, axial T2 weighted sequences [...] are consistent with and integrated into the [place] Associationfor the Study of Liver Diseases (AASLD) [...] <20 <20 ng/mL 09/14 7:16 AM EDT [facility] Alpha OH Midazolam <20 <20 ng/mL 2024 7:16 AM EDT [facility] Alpha OH Triazolam <20 <20 ng/mL 2024 7:16 AM EDT [facility] Alprazolam <10 <10 ng/mL 09/14/2025 7:16 AM EDT [facility] Aminoclonazepam <20 <20 ng/mL 7:16 AM EDT [facility] Amphetamine <50 <50 ng/mL 09/14/2025 7:16 AM EDT [facility] Benzoylecgonine <50 <50 ng/mL 7:16 AM EDT [facility] Buprenorphine <10 <10 ng/mL 09/14/2025 7:16 AM EDT [facility] Buprenorphine Glucuronide <50 <50 ng/mL 09/14/2025 7:16 AM EDT [facility] Butalbital <50 <50 ng/mL 09/14/2025 7:16 AM EDT [facility] 9 Carboxy THC <10 <10 ng/mL 09/14/2025 7:16 AM EDT [facility] 9 Carboxy THC Glucuronide <25 <25 ng/mL 09/14/2025 7:16 AM EDT [facility] Clonazepam <10 <10 ng/mL 09/14/2025 7:16 AM EDT [facility] Codeine <50 <50 ng/mL 09/14/2025 7:16 AM EDT [facility] Codeine Glucuronide <50 <50 ng/mL 09/14 7:16 AM EDT [facility] Cyclobenzaprine <50 <50 ng/mL 7:16 AM EDT [facility] Desmethyl Tramadol <50 <50 ng/mL 2024 7:16 AM EDT [facility] Diazepam <10 <10 ng/mL 09/14/2025 7:16 AM EDT [facility] EDDP - Methadone Metabolite <50 <50 ng/mL 09/14/2025 7:16 AM EDT [facility] Fentanyl <1 <1 ng/mL 09/14/2025 7:16 AM EDT [facility] Hydrocodone <50 <50 ng/mL 09/14/2025 7:16 AM EDT [facility] Hydromorphone <50 <50 ng/mL 09/14/2025 7:16 AM EDT [facility] Hydromorphone Glucuronide <50 <50 ng/mL 09/14/2025 7:16 AM EDT [facility] Lorazepam <20 <20 ng/mL 09/14/2025 7:16 AM EDT [facility] Lorazepam Glucuronide <50 <50 ng/mL 09/14/2025 7:16 AM EDT [facility] MDA <50 <50 ng/mL 09/14/2025 7:16 AM EDT [facility] MDMA <50 <50 ng/mL 09/14/2025 7:16 AM EDT [facility] Meperidine <50 <50 ng/mL 09/14/2025 7:16 AM EDT [facility] Methadone <50 <50 ng/mL 09/14/2025 7:16 AM EDT [facility] Methamphetamine <50 <50 ng/mL 7:16 AM EDT [facility] Methylphenidate <50 <50 ng/mL 7:16 AM EDT [facility] 6 Monoacetyl morphine <10 <10 ng/mL 09/14/2025 7:16 AM EDT [facility] Morphine <50 <50 ng/mL 09/14/2025 7:16 AM EDT [facility] Morphine Glucuronide <50 <50 ng/mL 08/17 7:16 AM EDT [facility] Naloxone <50 <50 ng/mL 09/14/2025 7:16 AM EDT [facility] Naloxone Glucuronide <50 <50 ng/mL 08/17 7:16 AM EDT [facility] Norbuprenorphine <10 <10 ng/mL 09/14/20 7:16 AM EDT [facility] Norbuprenorphine Glucuronide <50 <50 ng/mL 09/14/2025 7:16 AM EDT [facility] Nordiazepam <20 <20 ng/mL 09/14/2025 7:16 AM EDT [facility] Norfentanyl <2 <2 ng/mL 09/14/2025 7:16 AM EDT [facility] Normeperidine <50 <50 ng/mL 09/14/2025 7:16 AM EDT [facility] PCP Quant, Ur <50 <50 ng/mL 09/14/2025 7:16 AM EDT [facility] Phenobarbital <50 <50 ng/mL 09/14/2025 7:16 AM EDT [facility] Oxazepam <20 <20 ng/mL 09/14/2025 7:16 AM EDT [facility] Oxazepam Glucuronide <50 <50 ng/mL 08/17 7:16 AM EDT [facility] Oxycodone <50 <50 ng/mL 09/14/2025 7:16 AM EDT [facility] Oxymorphone <50 <50 ng/mL 09/14/2025 7:16 AM EDT [facility] Oxymorphone Glucuronide <50 <50 ng/mL 09/14/2025 7:16 AM EDT [facility] Secobarbital <50 <50 ng/mL 09/14/2025 7:16 AM EDT [facility] Tramadol <50 <50 ng/mL 09/14/2025 7:16 AM EDT [facility] Temazepam <20 <20 ng/mL 09/14/2025 7:16 AM EDT [facility] Temazepam Glucuronide <50 <50 ng/mL 09/14/2025 7:16 AM EDT [facility] Urine Urine specimen obtained by clean catch procedure / Unknown Non-blood Collection / Unknown 09/12/2025 7:55 AM EDT 09/12/2025 8:51 AM EDT Narrative [facility] - 09/14/2025 7:16 AM EDT [...] laboratory. Test performed by LC-MS/MS at the [facility] Special Chemistry Laboratory. This test was developed and its performance characteristics determined by [facility]. It has not been cleared or approved by the FDA. The laboratory is regulated under CLIA as qualified to perform high-complexity testing. This test is used for clinical purposes. Portia Maguire MD LAB URINE ORDERABLES Nadia l Result Performing Organization Address City/[facility] Co de Phone Number [facility] [address] [place] [address] * Alpha Fetoprotein, Serum (09/12/2025 7:55 AM EDT) Alpha Fetoprotein, Serum <2.3 <10.0 ng/mL 09/12/2025 10:18 AM EDT [facility] Blood Venous blood specimen / Unknown Venipuncture / Unknown 09/12/2025 7:55 AM EDT 09/12/2025 8:46 AM EDT Narrative [facility] - 09/12/2025 10:18 AM EDT Performed by Stacey electrochemiluminescent immunoassay which is traceable to the 1st AFP IRP WHO Reference standard 72/255. Results obtained with different test methods or kits cannot be used interchangeably. Portia Maguire MD LAB BLOOD ORDERABLES Nadia l Result Performing Organization Address [facility] Co de Phone Number [facility] [address] [place] [address] * Nicotine Cotinine Metabolite (09/12/2025 7:55 AM EDT) Only the most recent of2 resultswithin the time period is included. NICOTINE <5 <5 ng/mL 09/14/2025 10:24 AM EDT [facility] Cotinine <5 <5 ng/mL 09/14/2025 10:24 AM EDT [facility] Blood Venous blood specimen / Unknown Venipuncture / Unknown 09/12/2025 7:55 AM EDT 09/12/2025 8:46 AM EDT Narrative [facility] - 09/14/2025 10:24 AM EDT Testing performed by LC-MS/MS at the [facility] Special Chemistry/Toxicology Laboratory. This test was developed and its performance characteristics determined by [facility]. This assay has not been cleared by the FDA. The laboratory is regulated under CLIA as qualified to perform high-complexity testing. This test is used for clinical purposes. Portia Maguire MD LAB BLOOD ORDERABLES Nadia crockett Result [facility] [address] [place] [address] * Alcohol Urine (09/12/2025 7:55 AM EDT) Only the most recent of2 resultswithin the time period is included. Alcohol Urine Negative Negative 09/12/2025 1:41 PM EDT [facility] Urine Urine specimen obtained by clean catch procedure / Unknown Non-blood Collection / Unknown 09/12/2025 7:55 AM EDT 09/12/2025 8:51 AM EDT Narrative [facility] - 09/12/2025 1:41 PM EDT The correlation between urine and serum ethanol concentration is highly variable. Test performed by Gas Chromatography at the [facility] Chemistry Laboratory. This test was developed and its performance characteristics determined by [facility]. It has not been cleared or approved by the FDA.The laboratory is regulated under CLIA as qualified to perform high-complexity testing. This test is used for clinical purposes only. The correlation between urine and serum ethanol concentration is highly variable. Test performed by Gas Chromatography at the [facility] Laboratory. This test was developed and its performance characteristics determined by [facility]. It has not been cleared or approved by the FDA.The laboratory is regulated under CLIA as qualified to perform high-complexity testing. This test is used for clinical purposes only. Portia Maguire MD LAB URINE ORDERABLES Nadia crockett Result [facility] [address] [place] [address] * Comprehensive Urine Drug Screening, Qualitative Assay, >= 27 Drug Classes (09/12/2025 7:55 AM EDT) Only the most recent of2 resultswithin the time period is included. Acetaminophen Negative Negative 09/16/2025 3:50 AM EST [facility] Alprazolam Negative Negative 09/16/2025 3:50 AM EST [facility] Amantadine Negative Negative 09/16/2025 3:50 AM EST [facility] Amitriptyline Negative Negative 09/16/2025 3:50 AM EST [facility] Amphetamine Negative Negative 09/16/2025 3:50 AM EST [facility] Atenolol Negative Negative 09/16/2025 3:50 AM EST [facility] Benzoylecgonine Negative Negative 3:50 AM EST [facility] Bisoprolol Negative Negative 09/16/2025 3:50 AM EST [facility] Bupropion Negative Negative 09/16/2025 3:50 AM EST [facility] Butalbital Negative Negative 09/16/2025 3:50 AM EST [facility] Carbamazepine Negative Negative 09/16/2025 3:50 AM EST [facility] Carisoprodol Negative Negative 09/16/2025 3:50 AM EST [facility] Chlorpheniramine Negative Negative 09/16/20 3:50 AM EST [facility] Citalopram Negative Negative 09/16/2025 3:50 AM EST [facility] Clindamycin Negative Negative 09/16/2025 3:50 AM EST [facility] Clonidine Negative Negative 09/16/2025 3:50 AM EST [facility] Clopidogrel / Ticlopidine Negative Negative 09/16/2025 3:50 AM EST [facility] Cocaethylene Negative Negative 09/16/2025 3:50 AM EST [facility] Cocaine Negative Negative 09/16/2025 3:50 AM EST [facility] Codeine Negative Negative 09/16/2025 3:50 AM EST [facility] Cyclobenzaprine Negative Negative 3:50 AM EST [facility] Desvenlafaxine Negative Negative 09/16/2025 3:50 AM EST [facility] Dextromethorphan Negative Negative 09/16/20 3:50 AM EST [facility] Diazepam Negative Negative 09/16/2025 3:50 AM EST [facility] Diltiazem Negative Negative 09/16/2025 3:50 AM EST [facility] Diphenhydramine Negative Negative 3:50 AM EST [facility] Doxepine Negative Negative 09/16/2025 3:50 AM EST [facility] Doxylamine Negative Negative 09/16/2025 3:50 AM EST [facility] EDDP-Methadone metabolite Negative Negative 09/16/2025 3:50 AM EST [facility] Fentanyl Negative Negative 09/16/2025 3:50 AM EST [facility] Fluconazole Negative Negative 09/16/2025 3:50 AM EST [facility] Fluoxetine Negative Negative 09/16/2025 3:50 AM EST [facility] Guaifenesin Negative Negative 09/16/2025 3:50 AM EST [facility] Haloperidol Negative Negative 09/16/2025 3:50 AM EST [facility] Heroin/6-MARY Negative Negative 09/16/2025 3:50 AM EST [facility] Hydrocodone Negative Negative 09/16/2025 3:50 AM EST [facility] Hydroxyzine / Cetirizine metabolite Negative Negative 09/16/2025 3:50 AM EST [facility] Ibuprofen Negative Negative 09/16/2025 3:50 AM EST [facility] Imipramine Negative Negative 09/16/2025 3:50 AM EST [facility] Ketamine Negative Negative 09/16/2025 3:50 AM EST [facility] Labetolol Negative Negative 09/16/2025 3:50 AM EST [facility] Lamotrigine Negative Negative 09/16/2025 3:50 AM EST [facility] Levetiracetam Negative Negative 09/16/2025 3:50 AM EST [facility] Lidocaine Negative Negative 09/16/2025 3:50 AM EST [facility] MDA Negative Negative 09/16/2025 3:50 AM EST [facility] MDMA Negative Negative 09/16/2025 3:50 AM EST [facility] Memantine Negative Negative 09/16/2025 3:50 AM EST [facility] Meperidine Negative Negative 09/16/2025 3:50 AM EST [facility] Meprobamate Negative Negative 09/16/2025 3:50 AM EST [facility] Metaxalone Negative Negative 09/16/2025 3:50 AM EST [facility] Methamphetamine Negative Negative 3:50 AM EST [facility] Methocarbamol Negative Negative 09/16/2025 3:50 AM EST [facility] Methylecgonine Negative Negative 09/16/2025 3:50 AM EST [facility] Metoclopramide Negative Negative 09/16/2025 3:50 AM EST [facility] Metoprolol Negative Negative 09/16/2025 3:50 AM EST [facility] Metronidazole Negative Negative 09/16/2025 3:50 AM EST [facility] Midazolam Negative Negative 09/16/2025 3:50 AM EST [facility] Midazolam Metabolite Negative Negative 12/2024 3:50 AM EST [facility] Mirtazapine Negative Negative 09/16/2025 3:50 AM EST [facility] Misc Test Result Negative Negative 09/16/20 3:50 AM EST [facility] Naproxen Negative Negative 09/16/2025 3:50 AM EST [facility] Nefazodone Negative Negative 09/16/2025 3:50 AM EST [facility] Norfentanyl Negative Negative 09/16/2025 3:50 AM EST [facility] Nortriptyline Negative Negative 09/16/2025 3:50 AM EST [facility] Ordanstron Negative Negative 09/16/2025 3:50 AM EST [facility] Oxcarbazepine Negative Negative 09/16/2025 3:50 AM EST [facility] Oxycodone Negative Negative 09/16/2025 3:50 AM EST [facility] Paroxethine Negative Negative 09/16/2025 3:50 AM EST [facility] Phenobarbital Negative Negative 09/16/2025 3:50 AM EST [facility] Phentermine Negative Negative 09/16/2025 3:50 AM EST [facility] Phenytoin Negative Negative 09/16/2025 3:50 AM EST [facility] Primidone Negative Negative 09/16/2025 3:50 AM EST [facility] Promethazine Negative Negative 09/16/2025 3:50 AM EST [facility] Propofol Negative Negative 09/16/2025 3:50 AM EST [facility] Propranolol Negative Negative 09/16/2025 3:50 AM EST [facility] Quetiapine Negative Negative 09/16/2025 3:50 AM EST [facility] Quinine Negative Negative 09/16/2025 3:50 AM EST [facility] Rantidine Negative Negative 09/16/2025 3:50 AM EST [facility] Sertraline Negative Negative 09/16/2025 3:50 AM EST [facility] Spironolactone Negative Negative 09/16/2025 3:50 AM EST [facility] Tizanidine Negative Negative 09/16/2025 3:50 AM EST [facility] Topiramate Negative Negative 09/16/2025 3:50 AM EST [facility] Tramadol Negative Negative 09/16/2025 3:50 AM EST [facility] Trazadone/ Trazadone metabolite Negative Negative 09/16/2025 3:50 AM EST [facility] Trimethoprim Negative Negative 09/16/2025 3:50 AM EST [facility] Valproic Acid Negative Negative 09/16/2025 3:50 AM EST [facility] Venlafaxine Negative Negative 09/16/2025 3:50 AM EST [facility] Verapamil Negative Negative 09/16/2025 3:50 AM EST [facility] Zolpidem Negative Negative 09/16/2025 3:50 AM EST [facility] Xylazine Negative Negative 09/16/2025 3:50 AM EST [facility] Urine Urine specimen obtained by clean catch procedure / Unknown Non-blood Collection / Unknown 09/12/2025 7:55 AM EDT 09/12/2025 8:51 AM EDT Portia Maguire MD LAB URINE ORDERABLES Nadia l Result Performing Organization Address City/State/[facility] Co de Phone Number [facility] [address] [place] [address] * (ABNORMAL) Protime-INR (09/12/2025 7:55 AM EDT) Only the most recent of10 resultswithin the time period is included. Prothrombin Time 24.0(H) 12.0 - 14.3 sec LAB COAGULATION METHOD 09/12/2025 9:03 AM EDT [facility] INR 2.1(H) 0.9 - 1.1 LAB COAGULATION METHOD 09/12/2025 9:03 AM EDT [facility] Blood Venous blood specimen / Unknown Venipuncture / Unknown 09/12/2025 7:55 AM EDT 09/12/2025 8:46 AM EDT Narrative [facility] - 09/12/2025 9:03 AM EDT OPTIMAL INR RANGES FOR PATIENT ON ORAL ANTICOAGULANT THERAPY Prevention of venous thromboembolism INR 2.0 to 3.0 In patients with heart disease: Atrial fibrillation INR 2.0 to 3.0 Valvular heart disease INR 2.0 to 3.0 Tissue heart valves INR 2.0 to 3.0 Mechanical prosthetic valves INR 2.5 to 3.5 Prevention of recurrent [place] INR 2.5 to 3.5 Portia Maguire MD LAB BLOOD ORDERABLES Nadia l Result [facility] [address] [place] [address] * (ABNORMAL) CBC w/o differential (09/12/2025 7:55 AM EDT) Only the most recent of9 resultswithin the time period is included. WBC Count 3.90 3.70 - 10.30 10*3/uL LAB HEMATOLOGY METHOD 09/12/2025 10:12 AM EDT [facility] RBC Count 3.06(L) 4.60 - 6.10 10*6/uL LAB HEMATOLOGY METHOD 09/12/2025 10:12 AM EDT [facility] HGB 10.3(L) 13.7 - 17.5 g/dL LAB HEMATOLOGY METHOD 09/12/2025 10:12 AM EDT [facility] HCT 31.9(L) 40.0 - 51.0 % LAB HEMATOLOGY METHOD 09/12/2025 10:12 AM EDT [facility] Platelet Count 57(L) 155 - 369 10*3/uL LAB HEMATOLOGY METHOD 09/12/2025 10:12 AM EDT [facility] MCV 104(H) 79 - 98 fL LAB HEMATOLOGY METHOD 09/12/2025 10:12 AM EDT [facility] [facility] MCH 33.7(H) 26.0 - 32.0 pg LAB HEMATOLOGY METHOD 09/12/2025 10:12 AM EDT [facility] MCHC 32.3 30.7 - 35.5 g/dL LAB HEMATOLOGY METHOD 09/12/2025 10:12 AM EDT [facility] RDW 17.3(H) 11.5 - 14.5 % LAB HEMATOLOGY METHOD 09/12/2025 10:12 AM EDT [facility] MPV 10.5 8.8 - 12.5 fL LAB HEMATOLOGY METHOD 09/12/2025 10:12 AM EDT [facility] nRBC 0.0 <=0.0 per 100 WBCs LAB HEMATOLOGY METHOD 09/12/2025 10:12 AM EDT [facility] Blood Venous blood specimen / Unknown Venipuncture / Unknown 09/12/2025 7:55 AM EDT 09/12/2025 8:51 AM EDT us Portia Maguire MD LAB BLOOD ORDERABLES Nadia bon Result [facility] [address] [place] [address] * (ABNORMAL) Comprehensive metabolic panel (09/12/2025 7:55 AM EDT) Only the most recent of9 resultswithin the time period is included. Glucose, Plasma 96 74 - 99 mg/dL 09/12/2025 9:16 AM EDT [facility] BUN, Plasma 11 8 - 23 mg/dL 09/12/2025 9:16 AM EDT [facility] Creatinine, Plasma 0.88 0.70 - 1.20 mg/dL 09/12/2025 9:16 AM EDT [facility] BUN/Creatinine Ratio 13 09/12/2025 9:16 AM EDT [facility] Sodium, Plasma 139 136 - 145 mmol/L 09/12/2025 9:16 AM EDT [facility] Potassium, Plasma 3.8 3.6 - 4.9 mmol/L 09/12/2025 9:16 AM EDT [facility] Chloride, Plasma 109(H) 97 - 107 mmol/L 09/12/2025 9:16 AM EDT [facility] CO2, Plasma 25 22 - 29 mmol/L 09/12/2025 9:16 AM EDT [facility] Anion Gap 5(L) 6 - 16 mmol/L 09/12/2025 9:16 AM EDT [facility] Total Calcium, Plasma 8.1(L) 8.9 - 10.2 mg/dL 09/12/2025 9:16 AM EDT [facility] Total Protein 5.9(L) 6.3 - 7.9 g/dL 09/12/2025 9:16 AM EDT [facility] Albumin, Plasma 2.1(L) 3.5 - 5.2 g/dL 09/12/2025 9:16 AM EDT [facility] AST, Plasma 40 10 - 50 U/L 09/12/2025 9:16 AM EDT [facility] ALT, Plasma 32 10 - 50 U/L 09/12/2025 9:16 AM EDT [facility] Alkaline Phosphatase, Plasma 230(H) 40 - 115 U/L 09/12/2025 9:16 AM EDT [facility] Total Bilirubin, Plasma 3.7(H) 0.2 - 1.1 mg/dL 09/12/2025 9:16 AM EDT [facility] eGFRcr 96.0 mL/min/1.7 3m*2 09/12/2025 9:16 AM EDT [facility] Comment:Reported eGFRcr in m L/min/1.73m2 is based the CKD-EPI 2020 equation that does not use a race coefficient. Blood Venous blood specimen / Unknown Venipuncture / Unknown 09/12/2025 7:55 AM EDT 09/12/2025 8:46 AM EDT Result [facility] Portia Maguire MD LAB BLOOD ORDERABLES Nadia l Result [facility] [address] [place] [address] * COMPLETE METABOLIC PROFILE (CMP) (08/29/2025 12:13 PM EDT) [facility] Provider LAB BLOOD ORDERABLES Final R esult * CBC and Differential (08/29/2025 11:11 AM EDT) Blood Venous blood specimen / Unknown [facility] Provider LAB BLOOD ORDERABLES Final R esult * HIV 1 & 2 Antibody/Antigen Screen (06/14/2025 6:31 PM EDT) HIV 1 & 2 Antibody/Antigen Screen Non Reactive Non Reactive 06/14/2025 7:45 PM EDT [facility] Comment:Screening for HIV 1 & 2 antibodies, and P24 antigen is NONREACTIVE. No confirmatory testing is required. Blood Venous blood specimen / Unknown Venipuncture / Unknown 06/14/2025 6:31 PM EDT 06/14/2025 7:05 PM EDT us Luis Angel Bee MD LAB BLOOD ORDERABLES Nadia l Result [facility] [address] [place] [address] * Hepatitis C Antibody (06/14/2025 6:31 PM EDT) Hepatitis C Antibody Negative Negative 06/14/2025 7:45 PM EDT [facility] Blood Venous blood specimen / Unknown Venipuncture / Unknown 06/14/2025 6:31 PM EDT 06/14/2025 7:05 PM EDT us Luis Angel Bee MD LAB BLOOD ORDERABLES Nadia l Result Performing Organization Address City/[facility] Co de Phone Number [facility] [address] [place] [address] * Dexa Bone Density (06/08/2025 8:35 AM EDT) Anatomical Region Laterality Modality L-spine Radiographic Liseth ging Narrative 06/17/2025 10:07 PM EDT [facility] [address] [place] [address] DXA Bone Densitometry Report: [06/08/2025] BMD test performed using the IQ Elite DXA System (analysis version: 14.10) manufactured by [employer]. REFERRING PROVIDER: Dr. 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
--- OUTSIDE RECORDS SUMMARY | 2025-09-19 14:25 | XMS_ITS | Encounter Summary ---
Author Organization Healthcare Address [address] [place] [address] Care Team Providers Care Master Hearth Technician Name Role Phone Ruma Hernández MEDICAL FRONT DESK SPECIALIST Unavailable [phone] Chris Medel MD Primary Care Provider [phone] Encounter Details Date Type Department Care Team (Late st Contact Info) Description 08/01/2025 Results Follow-Up [facility] [address] [place] [address] Meaghan Le, RN [facility] L[facility] [id number] [address] [place] [address] Social History Tobacco Use Types [...] 02/19/2025 How often do you attend [facility] or hoahaoism services? More than 4 times [...] 06/15/2025 [facility] of Occupat ional [facility] - Occupational [...] drink first t luisa in the morning (EYE-FITNESS FLOOR ATTENDANT) to steady your nerves or to get rid of a hangover? 0 06/14/2025 CAGE Questionnaire Score 0 025 Utilities Answer Date Recorded In the past 12 months has e electric, gas, oil, or water [employer] threatened to shut off services in your [...] E [facility], [address] [place] [address] Suhail Brock MD [address] [place] [address] 10/18/2025 4:20 PM EST Office Visit [facility] [place] [facility] [address] [facility], [address] [place] [address] Moustapha Katz MD [address] [facility] [address] [place] [address] 12/12/2025 8:30 AM EST Clinical Support [facility] [place] [address] [facility] [address] [place] [address] 12/12/2025 10:00 AM EST Office Visit [facility] [address] [facility] [address] [place] [address] Portia Maguire MD [address] [facility] [address] [place] [address] documented as of this encounter [...] documented as of this encounter Care Teams Master Hearth Technician Relationship Specialty Start Date End Date Chris Medel MD [address] [place] [address] PCP - General 03/14/25 Ruma Hernández APRN [address] [facility] [address] [place] [address] Referring Physician Gastroenterology 07/30/23 documented as of this encounter
--- OUTSIDE RECORDS SUMMARY | 2025-09-19 14:25 | XMS_ITS | Encounter Summary ---
Author Organization Healthcare Address [address] [place] [address] Care Team Providers Care Water Resources Business Segment Leader Name Role Phone Ruma Hernández PLANT TAXONOMIST Unavailable [phone] Chris Medel MD Primary Care Provider [phone] Encounter Details Date Type Department Care Team (Late st Contact Info) Description 08/20/2025 Results Follow-Up [facility] [address] [place] [address] Meaghan Le, RN [facility] LIVER [id number] [address] [place] [address] Social History Tobacco [...] week 02/19/2025 [facility] or [facility]an catholic services? More than 4 [...] 06/15/2025 [facility] of Occupat ional [facility] - Occupational Stress Questionnaire Answer [...] drink first t luisa in the morning (EYE-PANTOMIMIST) to steady your nerves or to get rid of a hangover? 0 06/14/2025 CAGE Questionnaire Score 0 025 Utilities Answer Date Recorded In the past 12 months has th e electric, gas, oil, or water [employer] threatened to shut off services in your [...] E [facility], [address] [place] [address] Suhail Brock MD [address] [facility] [address] [place] [address] 10/18/2025 4:20 PM EST Office Visit [facility] [address] [facility], [address] [place] [address] Moustapha Katz MD [address] [facility] [address] [place] [address] 12/12/2025 8:30 AM EST Clinical Support [facility] Transplant [place] [address] [facility] [address] [place] [address] 12/12/2025 10:00 AM EST Office Visit [facility] [address] [place] [address] Portia Maguire MD [address] [facility] [address] [place] [address] documented as of this encounter [...] as of this encounter Care Teams Water Resources Business Segment Leader Relationship Specialty Start Date End Date Chris Medel MD [address] [place] [address] PCP - General 03/14/25 Ruma Hernández, DEEP [address] [place] [address] Referring Physician Gastroenterology 07/30/23 documented as of this encounter
--- OUTSIDE RECORDS SUMMARY | 2025-09-19 14:25 | XMS_ITS | Encounter Summary ---
Author Organization Healthcare Address [address] [place] [address] Care Team Providers Care Comp Field Case Manager Name Role Phone Ruma Hernández MAKEUP ARTISTRY INSTRUCTOR Unavailable [phone] Chris Medel MD Primary Care Provider [phone] Encounter Details Date Type Department Care Team (Late st Contact Info) Description 06/14/2025 Results Follow-Up [facility] [address] [place] [address] Meaghan Le, RN [facility] LIVER [id number] [address] [place] [address] Social History Tobacco Use Types [...] you attend [facility] or congregation services? More than 4 [...] heating? Not hard at all 06/15/2025 [facility] of Occupat ional [facility] - Occupational Stress Questionnaire Answer [...] drink first t luisa in the morning (EYE-JAVA CORE DEVELOPER) to steady your nerves or to get rid of a hangover? 0 06/14/2025 CAGE Questionnaire Score 0 025 Utilities Answer Date Recorded In the past 12 months has [employer], gas, oil, or water [employer] threatened to shut off services in your [...] Upcoming Encounters Date Type Department Care Team ([facility] st Contact Info) Description 10/03/2025 12:45 PM EST Office Visit Medical Office Building Urology [address] [facility], [address] [place] [address] Suhail Brock MD [address] [facility] [address] [place] [address] 10/18/2025 4:20 PM EST [facility] Visit [facility] [address] [facility], [address] [place] [address] Moustapha Katz MD [address] [facility] [address] [place] [address] 12/12/2025 8:30 AM EST Clinical Support [facility] [address] [facility] [address] [place] [address] 12/12/2025 10:00 AM EST Office Visit [facility] [place] [address] [facility] [address] [place] [address] Portia Maguire MD [address] [facility] [address] [place] [address] documented as of this encounter Visit Diagnoses [...] documented as of this encounter Care Teams Comp Field Case Manager Relationship Specialty Start Date End Date Chris Medel MD [address] [place] [address] PCP - General 03/14/25 Ruma Hernández APRN [address] [facility] [address] [place] [address] Referring Physician Gastroenterology 07/30/23 documented as of this encounter
--- OUTSIDE RECORDS SUMMARY | 2025-09-19 14:26 | XMS_ITS | Encounter Summary ---
Author Organization [facility] Address [address] [place] [address] Care Team Providers Care Awning Maker Name Role Phone System, Provider Not In [...] release of HIV test results or diagnoses. [id number] Health Encounter Details Date Type Department Care Team (Late st Contact Info) Description 09/11/2025 Telephone [facility] Liver Transplant at [address] [address] Chapito Alcantar RN Social History Tobacco Use [...] documented as of this encounter Care Teams Awning Maker Relationship Specialty Start Date End Date System, Provider Not In PCP - General 09/10/25 documented as of this encounter
--- OUTSIDE RECORDS SUMMARY | 2025-09-19 14:26 | XMS_ITS | Encounter Summary ---
Author Organization [facility] Address [address] [place] [address] Care Team Providers Care Fox Farmer Name Role Phone System, Provider Not In [...] release of HIV test results or diagnoses. [id number] Health Encounter Details Date Type Department Care Team (Late st Contact Info) Description 09/11/2025 Chart Note [facility]plant at [address] [address] Ailin Wells Faxed Clinical for Listing/Txp Auth [...] Auth Organ: liver Listed Date: TBD Ins: [employer] Security Officer: pending documented in this encounter Plan of Treatment Not on file documented as of this encounter Visit Diagnoses Not on filedocumented in this encounter Additional Health Concerns Assessment Noted Time PHQ-9 Depression Total Score: 8 09/10/20 25 11:09 AM EDT documented as of this encounter Care Teams Fox Farmer Relationship Specialty Start Date End Date System, Provider Not In PCP - General 09/10/25 documented as of this encounter
--- OUTSIDE RECORDS SUMMARY | 2025-09-19 14:26 | XMS_ITS | Encounter Summary ---
Author Organization Healthcare Address [address] [place] [address] Care Team Providers Care Plan Rep Name Role Phone Ruma Hernández MUNITIONS HANDLER SUPERVISOR Unavailable [phone] Chris Medel MD Primary Care Provider [phone] Reason for Referral * Imaging (Routine) - Closed Specialty Diagnoses / Procedures Referred By Gianna reyes Referred To Contact Radiology Diagnoses Pre-liver transplant, listed Procedures MR Abdomen w and wo IV Contrast Portia Maguire MD [address] [facility] [address] [place] [address] Phone: tel: fax: Referral ID Status Reason Start Date Expiration Date Visits Re quested Visits Authorized [id number] Closed 09/05/2025 03/07/2027 1 1 Encounter Details Date Type Department Care Team (Late st Contact Info) Description 09/05/2025 Orders Only [facility] [address] [facility] [address] [place] [address] Meaghan Le, RN HOSPITAL LIVER [id number] [address] [place] [address] Pre-liver transplant, listed (Primary Dx) [...] How often do you attend [facility] or faith services? More than 4 times [...] and heating? Not hard at all 06/15/2025 [facility] of Occupat ional Health - [...] drink first t luisa in the morning (EYE-FUR WEIGHER) to steady your nerves or to get [...] Upcoming Encounters Date Type Department Care Team ([facility] Contact Info) Description 10/03/2025 12:45 PM EST Office Visit Medical Office Building Urology [address] [facility], [address] [place] [address] Suhail Brock MD [address] [facility] [address] [place] [address] 10/18/2025 4:20 PM EST [facility] Visit [facility] [address], [address] [place] [address] Moustapha Katz MD [address] [place] [address] 12/12/2025 8:30 AM EST Clinical Support [facility] [place] [address] [place] [address] 12/12/2025 10:00 AM EST Office Visit [facility] [place] [address] [place] [address] Portia Maguire MD [address] [place] [address] documented as of this encounter [...] are consistent with and integrated into the [employer] of Liver Diseases [...] using the following sequences: coronal single shot [id number] fast spin echo, axial T2 weighted sequences [...] are consistent with and integrated into the [place] Associationfor the Study of Liver Diseases (AASLD) [...] as of this encounter Care Teams Plan Rep Relationship Specialty Start Date End Date Chris Medel MD [address] [place] [address] PCP - General 03/14/25 Ruma Hernández APRN [address] [place] [address] [address] [place] [id number] Referring Physician Gastroenterology 07/30/23 documented as of this encounter
--- OUTSIDE RECORDS SUMMARY | 2025-09-19 14:26 | XMS_ITS | Encounter Summary ---
Author Organization [facility] Address [address] [place] [address] Care Team Providers Care Light Bulb Tester Name Role Phone Unknown, Attending Provider Primary [...] release of HIV test results or diagnoses. [id number] Health Encounter Details Date Type Department Care Team (Late st Contact Info) Description 09/05/2025 Telephone [facility] Liver Transplant at [address] [address] Cori Dover MA Social History Tobacco Use [...] request the following images be sent to [facility] Pacs: Must send fax request. Request [...] on filedocumented in this encounter Care Teams Light Bulb Tester Relationship Specialty Start Date End Date Unknown, Attending Provider PCP - General 08/29/2508/16 documented as of this encounter
--- OUTSIDE RECORDS SUMMARY | 2025-09-19 14:26 | XMS_ITS | Encounter Summary ---
Author Organization [facility] Address [address] [place] [address] Care Team Providers Care Retail Chain Store Area Supervisor Name Role Phone System, Provider Not [...] release of HIV test results or diagnoses. [id number] Health Encounter Details Date Type Department Care Team (Late st Contact Info) Description 09/19/2025 Telephone [facility] Transplant at [address] [address] Chapito Alcantar RN Social History Tobacco Use [...] Telephone Encounter - Chapito Alcantar RN - 09/19/2025 10:02 AM EST Spoke with patient and spouse. Patient currently admitted to an OSH with a transfer pending to [facility]. Updated family that no bed is currently available, but transfer is still accepted. For transplant listing, just waiting on insurance authorization. Notes show patient with current infection. If authorization received, will wait for patient to be assessed by team prior to listing. documented in this encounter Plan of Treatment Not on file documented as of this encounter Visit Diagnoses Not on filedocumented in this encounter Additional Health Concerns Assessment Noted Time PHQ-9 Depression Total Score: 8 09/10/20 11:09 AM EDT documented as of this encounter Care Teams Retail Chain Store Area Supervisor Relationship Specialty Start Date End Date System, Provider Not In PCP - General 09/10/25 documented as of this encounter
--- OUTSIDE RECORDS SUMMARY | 2025-09-19 14:26 | XMS_ITS | Encounter Summary ---
Author Organization [facility] Address [address] [place] [address] Care Team Providers Care Wrecking Car Driver Name Role Phone System, Provider Not In [...] release of HIV test results or diagnoses. [id number] Encounter Details Date Type Department Care Team (Late st Contact Info) Description 09/18/2025 Hospital Encounter [facility] [address] [place] [address] Social History Tobacco Use Types Packs/Day Years [...] as of this encounter Progress Notes * Magdalena Garibay MD - 09/18/2025 9:36 PM EST [facility] Department of Medicine TRANSFER CALL NOTE Location [facility] History of Present Illness David Pop is a 65 y.o. 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 Currently approved for O[facility] listing per 09/13/25 chart (also sought dual-listing at ). Has a recent diagnosis of strongyloides but had not started ivermectin. Presented tonight with abdominal pain. Has a tender, distended abdomen on exam but not peritonitic. Found to have UTI. He is HDS and no acute abnormality on CT abd/pel. Has ascites butnot a large enough pocket for a bedside para. Started on CTX for sbp prophy and UTI. Mental status = a&ox4, no concern HE but is jaundiced. Objective Last Known Vitals: 114/66 82 RR 18 98.4 98% Pertinent Lab Studies: Na 135 K 4.9 CO2 25 Cr 1.1 Gluc normal Lactate 3.7 Bili 9.5 AST 82 ALT 47 Alk phos 135 Lipase wnl WBC 10 Hb 11 Plt 49 INR 1.65 UA - + nitrite, +leuks, +RBC and WBC CT abd/pel: small left pleural effusion, small ascites Assessment / Plan David Pop is a 65 y.o. male who presented to OSH with abdominal pain, found to have UTI andworsening hyperbilirubinemia. Transfer accepted to Internal Medicine med/surg floor status. Will likely need: --Work up for jaundice/hyperbilirubinemia --Continue abx for UTI --consider broadening infectious w/u and w/u for abdominal pain --IR consult for paracentesis --Hepatology consult Level of Care: floor Magdalena Garibay MD 09/18/2025 9:36 PM documented in this encounter Plan of Treatment Not on file documented as of this encounter Visit Diagnoses Not on filedocumented in this encounter Additional Health Concerns Assessment Noted Time PHQ-9 Depression Total Score: 8 09/10/20 11:09 AM EDT documented as of this encounter Care Teams Wrecking Car Driver Relationship Specialty Start Date End Date System, Provider Not In PCP - General 09/10/25 documented as of this encounter
--- OUTSIDE RECORDS SUMMARY | 2025-09-19 14:26 | XMS_ITS | Encounter Summary ---
Author Organization [facility] Address [address] [place] [address] Care Team Providers Care Battery Plate Remover Name Role Phone Unknown, Attending Provider Primary [...] release of HIV test results or diagnoses. [id number] Health Encounter Details Date Type Department Care Team (Late st Contact Info) Description 09/05/2025 Abstract [facility] Liver Transplant at [address] [address] Chapito Alcantar, SILVIO Alcoholic cirrhosis of liver [...] disease documented in this encounter Care Teams Battery Plate Remover Relationship Specialty Start Date End Date Unknown, Attending Provider PCP - General 08/29/2508/16 documented as of this encounter
--- OUTSIDE RECORDS SUMMARY | 2025-09-19 14:26 | XMS_ITS | Encounter Summary ---
Author Organization [facility] Address [address] [place] [address] Care Team Providers Care Aquaculture Farmer Name Role Phone System, Provider Not [...] release of HIV test results or diagnoses. [id number] Health Encounter Details Date Type Department Care Team (Late st Contact Info) Description 09/17/2025 Telephone [facility] at [facility] [address] [place] [address] Navi Sims MD [address] [facility] [address] [place] [address] Social History Tobacco Use Types Packs/Day [...] documented as of this encounter Care Teams Aquaculture Farmer Relationship Specialty Start Date End Date System, Provider Not In PCP - General 09/10/25 documented as of this encounter
--- OUTSIDE RECORDS SUMMARY | 2025-09-19 14:26 | XMS_ITS | Encounter Summary ---
Author Organization Healthcare Address [address] [place] [address] Care Team Providers Care Occ Therapy Asst Name Role Phone Ruma Hernández LUNCHROOM AIDE Unavailable [phone] Chris Medel MD Primary Care Provider [phone] Encounter Details Date Type Department Care Team [...] 06/15/2025 How often do you attend [facility] or jainism services? More than 4 times [...] hard at all 06/15/2025 [facility] of Occupat ional Health - Occupational Stress [...] drink first t luisa in the morning (EYE-PRESIDENT CEO & FOUNDER) to steady your nerves or to get [...] [facility], [address] [place] [address] Suhail Brock MD [address] [facility] [address] [place] [address] 10/18/2025 4:20 PM EST Office Visit [facility] [address] [facility], [address] [place] [address] Moustapha Katz MD [address] [facility] [address] [place] [address] 12/12/2025 8:30 AM EST Clinical Support [facility] [place] [address] [facility] [address] [place] [address] 12/12/2025 10:00 AM EST Office Visit [facility] [place] [address] [place] [facility] [address] [place] [address] Portia Maguire MD [address] [facility] [address] [place] [address] documented as of this encounter [...] documented as of this encounter Care Teams Occ Therapy Asst Relationship Specialty Start Date End Date Chris Medel MD [address] [place] [address] PCP - General 03/14/25 Ruma Hernández APRN [address] [facility] [address] [place] [address] Referring Physician Gastroenterology 07/30/23 documented as of this encounter
--- OUTSIDE RECORDS SUMMARY | 2025-09-19 14:26 | XMS_ITS | Encounter Summary ---
Author Organization [facility] Address [address] [place] [address] Care Team Providers Care Drop Wire Operator Name Role Phone System, Provider Not [...] release of HIV test results or diagnoses. [id number] Health Encounter Details Date Type Department Care Team (Late st Contact Info) Description 09/11/2025 Telephone [facility] Liver Transplant at [address] [address] Chapito Alcantar, SILVIO Social History Tobacco Use [...] documented as of this encounter Care Teams Drop Wire Operator Relationship Specialty Start Date End Date System, Provider Not In PCP - General 09/10/25 documented as of this encounter
--- OUTSIDE RECORDS SUMMARY | 2025-09-19 14:26 | XMS_ITS | Encounter Summary ---
Author Organization [facility] Address [address] [place] [address] Care Team Providers Care Investigative Agent Name Role Phone System, Provider Not [...] release of HIV test results or diagnoses. [id number] Health Encounter Details Date Type Department Care Team (Late st Contact Info) Description 09/10/2025 Chart Note [facility] Liver Transplant at [address] [address] Chapito Alcantar RN Alcoholic cirrhosis of liver [...] Alcantar RN - 09/10/2025 9:11 AM EDT Himrod tab updated documented in this encounter Plan [...] QT: 464 ms QTc: 478 ms P Snook: 27 degrees R Snook: 58 degrees T Snook: 22 degrees Diagnosis Line: NORMAL SINUS RHYTHM ^ NORMAL ECG ^ No previous ECGs available ^ Confirmed by MD TIP, [facility] ([id number]) on 09/10/2025 3:28:36 PM Buddy Zimmerman MD ECG ORDERABLES Final Result MUSE * (ABNORMAL) Renal Function Panel w/o EGFR (08/29/2025) Glucose 113 BUN 11 CO2 27(A) 13 - 22 mmol/L Creatinine 0.9 Potassium 4.4 Sodium 139 Chloride 109 Calcium 8.2 EGFR 85 mg/dL Albumin 2.2(A) 3.5 - 5.0 g/dL Blood Jenelle Provider LAB BLOOD ORDERABLES Nadia l Result [...] documented as of this encounter Care Teams Investigative Agent Relationship Specialty Start Date End Date System, Provider Not In PCP - General 09/10/25 documented as of this encounter
--- OUTSIDE RECORDS SUMMARY | 2025-09-19 14:26 | XMS_ITS | Encounter Summary ---
Author Organization Healthcare Address [address] [place] [address] Care Team Providers Care Fuselage Framer Name Role Phone Ruma Hernández JACQUARD LOOM WEAVER Unavailable [phone] Chris Medel MD Primary Care Provider [phone] Encounter Details Date Type Department Care Team (Late st Contact Info) Description 08/31/2025 Results Follow-Up [facility] [address] [place] [address] Meaghan Le, RN [facility] LIVER [id number] [address] [place] [address] Social History Tobacco Use Types [...] [facility] or worship services? More than 4 [...] and heating? Not hard at all 06/15/2025 [facility] of Occupat ional [facility] - Occupational Stress Questionnaire Answer Date [...] in the [facility] 12 m [facility], were you homeless or living in [...] first t luisa in the morning (EYE-SALES RECRUITING COORDINATOR) to steady your nerves or to [...] [address] [facility], [address] [place] [address] Suhail Brock MD [address] [facility] [address] [place] [address] 10/18/2025 4:20 PM EST Office Visit [facility] [address], [address] [place] [address] Moustapha Katz MD [address] [place] [address] 12/12/2025 8:30 AM EST Clinical Support [facility] [place] [address] [facility] [address] [place] [address] 12/12/2025 10:00 AM EST Office Visit [facility] [place] [address] [facility] [address] [place] [address] Portia Maguire MD [address] [facility] [address] [place] [address] documented as of this encounter [...] documented as of this encounter Care Teams Fuselage Framer Relationship Specialty Start Date End Date Chris Medel MD [address] [place] [address] PCP - General 03/14/25 Ruma Hernández APRN 1780 [facility] 202 [place] [address] Referring Physician Gastroenterology 07/30/23 documented as of this encounter
--- OUTSIDE RECORDS SUMMARY | 2025-09-19 14:26 | XMS_ITS | Encounter Summary ---
Author Organization [facility] Address [address] [place] [address] Care Team Providers Care Furnace Repairer Helper Name Role Phone System, Provider Not In [...] release of HIV test results or diagnoses. [id number] Health Encounter Details Date Type Department Care Team (Late st Contact Info) Description 09/13/2025 Chart Note [facility] Liver Transplant at [address] [address] Chapito Alcantar RN Multi-disciplinary Hepatobiliary Case Conference [...] documented as of this encounter Care Teams Furnace Repairer Helper Relationship Specialty Start Date End Date System, Provider Not In PCP - General 09/10/25 documented as of this encounter
--- OUTSIDE RECORDS SUMMARY | 2025-09-19 14:26 | XMS_ITS | Encounter Summary ---
Author Organization Healthcare Address [address] [place] [address] Care Team Providers Care Quality Control Microbiologist Name Role Phone Ruma eHrnández BURR MACHINE OPERATOR Unavailable [phone] Chris Medel MD Primary Care Provider [phone] Encounter Details Date Type Department Care Team [...] 06/15/2025 How often do you attend [facility] or yazdanism services? More than 4 times [...] and heating? Not hard at all 06/15/2025 [facility] [place] of Occupat ional Health - Occupational Stress [...] first t luisa in the morning (EYE-SOFTWARE SOLUTIONS ARCHITECT) to steady your nerves or to [...] Encounters Date Type Department Care Team ([facility] Contact Info) Description 10/03/2025 12:45 PM EST Office Visit Medical Office Building Urology [address] [facility], [address] [place] [address] Suhail Brock MD [address] [place] [address] 10/18/2025 4:20 PM EST Office Visit [facility] [address] [facility], [address] [place] [address] Moustapha Katz MD [address] [facility] [address] [place] [address] 12/12/2025 8:30 AM EST Clinical Support [facility] [address] [place] [address] 12/12/2025 10:00 AM EST Office Visit [facility] [address] [place] [address] Portia Maguire MD [address] [place] [address] documented as of this encounter Visit Diagnoses [...] as of this encounter Care Teams Quality Control Microbiologist Relationship Specialty Start Date End Date Chris Medel MD [address] [place] [address] PCP - General 03/14/25 Ruma Hernández APRN 1780 [facility] 202 [place] [address] Referring Physician Gastroenterology 07/30/23 documented as of this encounter
--- OUTSIDE RECORDS SUMMARY | 2025-09-19 14:26 | XMS_ITS | Encounter Summary ---
Author Organization [facility] Address [address] [place] [address] Care Team Providers Care Dry Room Attendant Name Role Phone System, Provider Not In [...] release of HIV test results or diagnoses. [id number] Health Encounter Details Date Type Department Care Team (Late st Contact Info) Description 09/10/2025 Nutrition [facility] Kidney Transplant at [address] [address] Social History Tobacco Use [...] 2.1 (L) 09/10/2025 No results found for: [id number] PMH: Past Medical History: Diagnosis Date Epididymitis [...] Dietitian - Solid Organ Transplant Contact via NICE Chat [1] Allergies Allergen Reactions Lisinopril Other (See Comments) documented in this encounter Plan of Treatment Not on file documented as of this encounter Visit Diagnoses Not on filedocumented in this encounter Additional Health Concerns Assessment Noted Time PHQ-9 Depression Total Score: 8 09/10/20 11:09 AM EDT documented as of this encounter Care Teams Dry Room Attendant Relationship Specialty Start Date End Date System, Provider Not In PCP - General 09/10/25 documented as of this encounter
--- OUTSIDE RECORDS SUMMARY | 2025-09-19 14:26 | XMS_ITS | Encounter Summary ---
Author Organization [facility] Address [address] [place] [address] Care Team Providers Care Jar Capper Name Role Phone Unknown, Attending Provider Primary [...] release of HIV test results or diagnoses. [id number] Health Encounter Details Date Type Department Care Team (Late st Contact Info) Description 09/05/2025 Telephone [facility] Liver Transplant at [address] [address] Chapito Alcantar RN Social History Tobacco Use [...] as of this encounter Progress Notes * hCapito Alcantar RN - 09/05/2025 4:08 PM EDT Called and spoke to patient's spouse about upcoming testing and clinic appointment. Patient to bring updated list of medications. documented in this encounter Plan of Treatment Not on file documented as of this encounter Visit Diagnoses Not on filedocumented in this encounter Care Teams Jar Capper Relationship Specialty Start Date End Date Unknown, Attending Provider PCP - General 08/29/2508/16 documented as of this encounter
--- OUTSIDE RECORDS SUMMARY | 2025-09-19 14:26 | XMS_ITS | Encounter Summary ---
Author Organization Healthcare Address [address] [place] [address] Care Team Providers Care Balance Engineer Name Role Phone Ruma Hernández CHANGE ROOM ATTENDANT Unavailable [phone] Chris Medel MD Primary Care Provider [phone] Encounter Details Date Type Department Care Team (Late st Contact Info) Description 09/12/2025 Results Follow-Up [facility] [address] [place] [address] Meaghan Le, RN [facility] LIVER [id number] [address] [place] [address] Social History Tobacco Use Types [...] [facility] or christianity services? More than 4 times [...] and heating? Not hard at all 06/15/2025 [facility] of Occupat ional [facility] - Occupational Stress Questionnaire Answer Date [...] No 06/15/2025 Housing Stability Vital Sign Answer Frasnico e Recorded In the last 12 months, [...] first t luisa in the morning (EYE-NETWORK CABLER) to steady your nerves or to get rid of a hangover? 0 06/14/2025 CAGE Questionnaire Score 0 025 Utilities Answer Date Recorded In the past 12 months has [employer], gas, oil, or water [employer] threatened to shut off services in your [...] Urology [address] , [address] [place] [address] Suhail Brock MD [address] [facility] [address] [place] [address] 10/18/2025 4:20 PM EST Office Visit [facility] [place] [facility] [address], [address] [place] [address] Moustapha Katz MD [address] [place] [address] 12/12/2025 8:30 AM EST Clinical Support [facility] [address] [facility] [address] [place] [address] 12/12/2025 10:00 AM EST Office Visit [facility] [address] [facility] [address] [place] [address] Portia Maguire MD [address] [place] [address] documented as of this encounter Visit Diagnoses [...] documented as of this encounter Care Teams Balance Engineer Relationship Specialty Start Date End Date Chris Medel MD [address] [place] [address] PCP - General 03/14/25 Ruma Hernández APRN [address] [place] [address] Referring Physician Gastroenterology 07/30/23 documented as of this encounter
--- OUTSIDE RECORDS SUMMARY | 2025-09-19 14:27 | XMS_ITS | Encounter Summary ---
Author Organization Healthcare Address [address] [place] [address] Care Team Providers Care Warehouse Administrator Name Role Phone Urban Brantley DO Primary Care Provider [phone] Ruma Hernández MEDICAL EQUIPMENT SALES Unavailable [phone] Chris Medel MD Primary Care Provider [phone] Encounter Details Date Type Department Care Team (Late Contact Info) Description 05/09/2023 Orders Only External Location [address] [place] [address] Provider, External Social History Tobacco Use Types [...] [facility], [address] [place] [address] Suhail Brock MD [address] [place] [address] 10/18/2025 4:20 PM EST Office Visit [facility] [place] [facility] [address] , [address] [place] [address] Moustapha Katz MD [address] [place] [address] 12/12/2025 8:30 AM EST Clinical Support [facility] [place] [address] [facility] [address] [place] [address] 12/12/2025 10:00 AM EST Office Visit [facility] [place] [address] [facility] [address] [place] [address] Portia Maguire MD [address] [facility] [address] [place] [address] documented as of this encounter [...] documented as of this encounter Care Teams Warehouse Administrator Relationship Specialty Start Date End Date Urban Brantley DO [address] [place] [address] PCP - General 07/30/23 03/13/25 Chris Medel MD [address] [place] [address] PCP - General 03/14/25 Ruma Hernández APRN [address] [facility] 202 [place] [address] Referring Physician Gastroenterology 07/30/23 documented as of this encounter
--- OUTSIDE RECORDS SUMMARY | 2025-09-19 14:27 | XMS_ITS | Encounter Summary ---
Author Organization Healthcare Address [address] [place] [address] Care Team Providers Care Drier Attendant Name Role Phone Ruma Hernández INSURANCE HEALTHCARE CONSULTANT Unavailable [phone] Chris Medel MD Primary Care Provider [phone] Encounter Details Date Type Department Care Team (Late st Contact Info) Description 08/29/2025 Orders Only [facility] [address], [address] [place] [address] Provider, [place] [address] [place] [address] Social History Tobacco Use Types [...] you attend [facility] or sikh services? More than 4 times per year 02/19/2025 Do you belong to any clubs o r organizations such as jehovah's witness groups, unions, [employer] or athletic groups, or school groups? Yes [...] How often do you attend chur or sikh services? More than 4 times per year [...] at all 06/15/2025 [facility] - Occupational Stress Questionnaire Answer [...] first t luisa in the morning (EYE-DOCUMENT ADVISOR) to steady your nerves or to get rid of a hangover? 0 06/14/2025 CAGE Questionnaire Score 0 025 Utilities Answer Date Recorded In the past 12 months has e [employer], gas, oil, or water [employer] threatened to shut off services in your [...] Urology [address] [facility], [address] [place] [address] Suhail Brock MD [address] [facility] [address] [place] [address] 10/18/2025 4:20 PM EST Office Visit [facility] [address] [facility], [address] [place] [address] Moustapha Katz MD [address] [facility] [address] [place] [address] 12/12/2025 8:30 AM EST Clinical Support [facility] Trans[facility] [place] [address] [place] [address] 12/12/2025 10:00 AM EST Office Visit [facility] [place] [address] [facility] [address] [place] [address] Portia Maguire MD [address] [place] [address] documented as of this encounter Procedures Procedure Name Priority Date/Time Associated Diagnosis Comments COMPLETE METABOLIC PROFILE (CMP) Routine 08/29/2025 12:13 PM EDT PROTHROMBIN TIME(PT) / INR Routine 08/29/2025 11:11 AM EDT CBC WITH AUTO DIFFERENTIAL Routine 08/29/2025 11:11 AM EDT documented in this encounter Results * COMPLETE METABOLIC PROFILE (CMP) (08/29/2025 12:13 PM EDT) [facility] Provider LAB BLOOD ORDERABLES Final R esult * Prothrombin Time/INR (08/29/2025 11:11 AM EDT) Blood Venous blood specimen / Unknown [facility] Provider LAB BLOOD ORDERABLES Final R esult * CBC and Differential (08/29/2025 11:11 AM EDT) Blood Venous blood specimen / Unknown [facility] Provider LAB BLOOD ORDERABLES Final R [...] documented as of this encounter Care Teams Drier Attendant Relationship Specialty Start Date End Date Chris Medel MD [address] [place] [address] PCP - General 03/14/25 Ruma Hernández APRN [address] [place] [address] Referring Physician Gastroenterology 07/30/23 documented as of this encounter
--- OUTSIDE RECORDS SUMMARY | 2025-09-19 14:27 | XMS_ITS | Encounter Summary ---
Author Organization Healthcare Address [address] [place] [address] Care Team Providers Care Manager Emergency Name Role Phone Urban Brantley DO Primary Care Provider [phone] Ruma Hernández CHROME TANNER Unavailable [phone] Chris Medel MD Primary Care Provider [phone] Encounter Details Date Type Department Care Team (Late Contact Info) Description 03/22/2023 Orders Only External Location [address] [place] [address] Provider, External Social History Tobacco Use Types [...] [facility], [address] [place] [address] Suhail Brock MD [address] [place] [address] 10/18/2025 4:20 PM EST Office Visit [facility] Mineral Met[facility] [address] , [address] [place] [address] Moustapha Katz MD [address] [place] [address] 12/12/2025 8:30 AM EST Clinical Support [facility] [place] [address] [facility] [address] [place] [address] 12/12/2025 10:00 AM EST Office Visit [facility] [place] [address] [facility] [address] [place] [address] Portia Maguire MD [address] [facility] [address] [place] [address] documented as of this encounter [...] as of this encounter Care Teams Manager Emergency Relationship Specialty Start Date End Date Urban Brantley DO [address] [place] [address] PCP - General 07/30/23 03/13/25 Chris Medel MD [address] [place] [address] PCP - General 03/14/25 Ruma Hernández APRN [address] [facility] 202 [place], [place] [address] Referring Physician Gastroenterology 07/30/23 documented as of this encounter
--- OUTSIDE RECORDS SUMMARY | 2025-09-19 14:27 | XMS_ITS | Encounter Summary ---
Author Organization Healthcare Address [address] [place] [address] Care Team Providers Care Mold Yard Crane Operator Name Role Phone Ruma Hernández POULTRY RAISER Unavailable [phone] Chris Medel MD Primary Care Provider [phone] Encounter Details Date Type Department Care Team (Late st Contact Info) Description 06/29/2025 Results Follow-Up [facility] [address] [place] [address] Meaghan Le, RN [facility] LIVER [id number] [address] [place] [address] Social History Tobacco Use Types [...] you attend [facility] or restoration services? More than 4 [...] 06/15/2025 [facility] of Occupat ional [facility] - [...] drink first t luisa in the morning (EYE-THREAD SEPARATOR) to steady your nerves or to get rid of a hangover? 0 06/14/2025 CAGE Questionnaire Score 0 025 Utilities Answer Date Recorded In the past 12 months has [employer], gas, oil, or water [employer] threatened to shut off services in your [...] Upcoming Encounters Date Type Department Care Team ([facility] st Contact Info) Description 10/03/2025 12:45 PM EST Office Visit Medical Office Building Urology [address] [facility], [address] [place] [address] Suhail Brock MD [address] [facility] [address] [place] [address] 10/18/2025 4:20 PM EST Office Visit [facility] [address] [facility], [address] [place] [address] Moustapha Katz MD [address] [facility] [address] [place] [address] 12/12/2025 8:30 AM EST Clinical Support [facility] [address] [place] [address] 12/12/2025 10:00 AM EST Office Visit [facility] [address] [place] [address] Portia Maguire MD [address] [place] [address] documented as of this encounter Visit Diagnoses [...] documented as of this encounter Care Teams Mold Yard Crane Operator Relationship Specialty Start Date End Date Chris Medel MD [address] [place] [address] PCP - General 03/14/25 Ruma Hernández APRN [address] [address] Referring Physician Gastroenterology 07/30/23 documented as of this encounter
--- OUTSIDE RECORDS SUMMARY | 2025-09-19 14:27 | XMS_ITS | Encounter Summary ---
Author Organization [facility] Address [address] [place] [address] Care Team Providers Care Aviation Maintenance Instructor Name Role Phone Unavailable Primary Care [...] release of HIV test results or diagnoses. [id number] Health Encounter Details Date Type Department Care Team (Late st Contact Info) Description 08/13/2025 Telephone [facility] Liver Transplant at [address] [address] Cori [place] Social History Tobacco Use [...]
--- OUTSIDE RECORDS SUMMARY | 2025-09-19 14:27 | XMS_ITS | Encounter Summary ---
Author Organization [facility] Address [address] [place] [address] Care Team Providers Care Assistant Professor Of Communication Name Role Phone Unavailable Primary Care Provider [...] release of HIV test results or diagnoses. [id number] Health Encounter Details Date Type Department Care Team (Late st Contact Info) Description 08/13/2025 Telephone [facility] Liver Transplant at [address] [address] Cori Dover MA Social History Tobacco Use [...]
--- OUTSIDE RECORDS SUMMARY | 2025-09-19 14:27 | XMS_ITS | Encounter Summary ---
Author Organization [facility] Address [address] [place] [address] Care Team Providers Care Rn Float Name Role Phone System, Provider Not In [...] release of HIV test results or diagnoses. [id number] Health Encounter Details Date Type Department Care Team (Late st Contact Info) Description 09/17/2025 Refill [facility] at [facility] [address] [place] [phone] Johnny Dubois RN Social History Tobacco Use [...] medication will need to be sent to [facility] pharmacy to be filled. Gave [facility] pharmacy phonenumber to call about getting medication mailed to their house possibly. documented in this encounter Plan of Treatment Not on file documented as of this encounter Visit Diagnoses Not on filedocumented in this encounter Additional Health Concerns Assessment Noted Time PHQ-9 Depression Total Score: 8 09/10/20 25 11:09 AM EDT documented as of this encounter Care Teams Rn Float Relationship Specialty Start Date End Date System, Provider Not In PCP - General 09/10/25 documented as of this encounter
--- OUTSIDE RECORDS SUMMARY | 2025-09-19 14:27 | XMS_ITS | Encounter Summary ---
Author Organization [facility] Address [address] [place] [address] Care Team Providers Care Loader Magazine Grinder Name Role Phone Unavailable Primary Care Provider [...] release of HIV test results or diagnoses. [id number] Health Encounter Details Date Type Department Care Team (Late st Contact Info) Description 08/01/2025 Chart Note [facility] Liver Transplant at [address] [address] Chapito Alcantar RN Referral for liver transplant [...] referral will be entered and sent to [email or web address] for INS approval. Patient currently listed at . Work up complete. Will have patient scheduled with ID and anesthesia during first visit. Needs a chest CT. No barriers upon review. documented in this encounter Plan of Treatment Not on file documented as of this encounter Visit Diagnoses Not on filedocumented in this encounter
--- OUTSIDE RECORDS SUMMARY | 2025-09-19 14:27 | XMS_ITS | Encounter Summary ---
Author Organization Healthcare Address [address] [place] [address] Care Team Providers Care Cathode Maker Name Role Phone Urban Brantley DO Primary Care Provider [phone] Ruma Hernández INDUSTRIAL ENERGY ENGINEER Unavailable [phone] Chris Medel MD Primary Care Provider [phone] Encounter Details Date Type Department Care Team (Late Contact Info) Description 03/22/2023 Orders Only External Location [address] [place] [address] Provider, External Social History Tobacco Use Types [...] [address] [facility], [address] [place] [address] Suhail Brock MD [address] [place] [address] 10/18/2025 4:20 PM EST Office Visit [facility] Mineral Metabolism [address] , [address] [place] [address] Moustapha Katz MD [address] [place] [address] 12/12/2025 8:30 AM EST Clinical Support [facility] [place] [address] [facility] [address] [place] [address] 12/12/2025 10:00 AM EST Office Visit [facility] [place] [address] [facility] [address] [place] [address] Portia Maguire MD [address] [facility] [address] [place] [address] documented as of this encounter [...] documented as of this encounter Care Teams Cathode Maker Relationship Specialty Start Date End Date Urban Brantley DO [address] [place] [address] PCP - General 07/30/23 03/13/25 Chris Medel MD [address] [place] [address] PCP - General 03/14/25 Ruma Hernández APRN [address] [facility] [address] [place], [place] [address] Referring Physician Gastroenterology 07/30/23 documented as of this encounter
--- OUTSIDE RECORDS SUMMARY | 2025-09-19 14:27 | XMS_ITS | Encounter Summary ---
Author Organization Healthcare Address [address] [place] [address] Care Team Providers Care Linux Support Engineer Name Role Phone Urban Brantley DO Primary Care Provider [phone] Ruma Hernández GEOTHERMAL POWERPLANT SUPERVISOR Unavailable Chris Medel MD Primary Care Provider [phone] Encounter Details Date Type Department Care Team (Late st Contact Info) Description 12/30/2023 Orders Only External Location [address] [place] [address] Urban Stafford MD [address] [facility] [address] [place] [address] Social History Tobacco Use Types Packs/Day [...] [facility], [address] [place] [address] Suhail Brock MD [address] [place] [address] 10/18/2025 4:20 PM EST Office Visit [employer] [place] [facility] [address] [facility], [address] [place] [address] Moustapha Katz MD [address] [facility] [address] [place] [address] 12/12/2025 8:30 AM EST Clinical Support [facility] [place] [address] [place] [address] 12/12/2025 10:00 AM EST Office Visit [facility] [place] [address] [place] [address] Portia Maguire MD [address] [place] [address] documented as of this encounter [...] documented as of this encounter Care Teams Linux Support Engineer Relationship Specialty Start Date End Date Urban Brantley DO [address] [place] [address] PCP - General 07/30/23 03/13/25 Chris Medel MD [address] [place] [address] PCP - General 03/14/25 Ruma Hernández APRN [address] [place] [address] Referring Physician Gastroenterology 07/30/23 documented as of this encounter
--- OUTSIDE RECORDS SUMMARY | 2025-09-19 14:27 | XMS_ITS | Encounter Summary ---
Author Organization Healthcare Address [address] [place] [address] Care Team Providers Care Nurse Transition Name Role Phone Ruma Hernández ARTILLERY MAINTENANCE SUPERVISOR Unavailable [phone] Chris Medel MD Primary Care Provider [phone] Encounter Details Date Type Department Care Team (Late st Contact Info) Description 06/21/2025 Results Follow-Up [facility] [address] [place] [address] Meaghan Le, RN [facility] LIVER [id number] [address] [place] [address] Social History Tobacco Use Types [...] often do you attend [facility] or jain services? More than 4 [...] and heating? Not hard at all 06/15/2025 [facility] Occupat ional [facility] - Occupational [...] first t luisa in the morning (EYE-HEALTH PROMOTER) to steady your nerves or to get rid of a hangover? 0 06/14/2025 CAGE Questionnaire Score 0 025 Utilities Answer Date Recorded In the past 12 months has [employer], gas, oil, or water [employer] threatened to shut off services in your [...] [facility]. He is only on 40/100 - if they have to drain him do you want to increase his diuretics? documented in this encounter Plan of Treatment Upcoming Encounters Date Type Department Care Team (Late st Contact Info) Description 10/03/2025 12:45 PM EST Office Visit Medical Office Building Urology [address] , [address] [place] [address] Suhail Brock MD [address] [facility] [address] [place] [address] 10/18/2025 4:20 PM EST Office Visit Professional [email or web address] Center Bone & Mineral Metabolism [address] , [address] [place] [address] Moustapha Katz MD [address] [facility] [address] [place] [address] 12/12/2025 8:30 AM EST Clinical Support [facility] [place] [address] [facility] [address] [place] [address] 12/12/2025 10:00 AM EST Office Visit [facility] [address] [facility] [address] [place] [address] Portia Maguire MD [address] [facility] [address] [place] [address] documented as of this encounter [...] documented as of this encounter Care Teams Nurse Transition Relationship Specialty Start Date End Date Chris Medel MD [address] [place] [address] PCP - General 03/14/25 Ruma Hernández APRN [address] [place] [address] [address] [place], [place] [address] Referring Physician Gastroenterology 07/30/23 documented as of this encounter
--- OUTSIDE RECORDS SUMMARY | 2025-09-19 14:27 | XMS_ITS ---
Author Organization [facility] Address [address] 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
--- OUTSIDE RECORDS SUMMARY | 2025-09-19 14:27 | XMS_ITS | Encounter Summary ---
Author Organization [facility] Address [address] [place] [address] Care Team Providers Care Mine Foreman Name Role Phone Unavailable Primary Care Provider [...] release of HIV test results or diagnoses. [id number] Reason for Referral * Imaging/Cardiovascular Scan (Routine) - Closed Specialty Diagnoses / Procedures Referred By Contru t Referred To Contact Radiology Diagnoses Pre-transplant evaluation for chronic liver disease Procedures CT Chest WO contrast [facility] Liver Transplant at [address] [address] Phone: tel: fax: Referral ID Status Reason Start Date Expiration Date Visits Re quested Visits Authorized [id number] Closed 08/13/2025 02/09/2026 1 1 Encounter Details Date Type Department Care Team (Late st Contact Info) Description 08/13/2025 Orders Only [facility] Liver Transplant at [address] [address] Chapito Alcantar RN Pre-transplant evaluation [...] within the right upper lobe with downstream [id number] within the paramedian right upper lobe apex. [...]
--- OUTSIDE RECORDS SUMMARY | 2025-09-19 14:27 | XMS_ITS | Encounter Summary ---
Author Organization [facility] Address [address] [place] [address] Care Team Providers Care Digital Account Executive Name Role Phone Unavailable Primary Care Provider [...] release of HIV test results or diagnoses. [id number] Health Encounter Details Date Type Department Care Team (Late st Contact Info) Description 08/13/2025 Chart Note [facility] Transplant at [address] [address] Ailin Wells Patient is financially cleared for [...] for patient/donor needs to be done at [facility] documented in this encounter Plan of Treatment Not on file documented as of this encounter Visit Diagnoses Not on filedocumented in this encounter
--- OUTSIDE RECORDS SUMMARY | 2025-09-19 14:27 | XMS_ITS | Encounter Summary ---
Author Organization Healthcare Address [address] [place] [address] Care Team Providers Care Engineering Technologist Name Role Phone Ruma Hernández SPIRAL SPRING WINDER Unavailable [phone] Chris Medel MD Primary Care Provider [phone] Encounter Details Date Type Department Care Team (Late st Contact Info) Description 06/05/2025 Results Follow-Up [facility] [address] [place] [address] Meaghan Le, RN [facility] LIVER [id number] [address] [place] [address] Social History Tobacco Use Types [...] you attend [facility] or yazdanism services? More than 4 times per year 02/19/2025 Do you belong to any clubs o r organizations such as sikh groups, unions, Traansmissionternal or athletic groups, or school groups? Yes [...] and heating? Not hard at all 06/15/2025 [facility] of Occupat ional Health - Occupational [...] drink first t luisa in the morning (EYE-COLLECTIONS ASSISTANT) to steady your nerves or to get rid of a hangover? 0 06/14/2025 CAGE Questionnaire Score 0 025 Utilities Answer Date Recorded In the past 12 months has th e [employer], gas, oil, or water [employer] threatened to shut off services in your [...] Visit Medical Office Building Urology [address] [facility], [address] [place] [address] Suhail Brock MD [address] [place] [address] 10/18/2025 4:20 PM EST Office Visit [facility] [address] [facility], [address] [place] [address] Moustapha Katz MD [address] [facility] [address] [place] [address] 12/12/2025 8:30 AM EST Clinical Support [facility] [address] [facility] [address] [place] [address] 12/12/2025 10:00 AM EST Office Visit [facility] [place] [address] [facility] [address] [place] [address] Portia Maguire MD [address] [facility] [address] [place] [address] documented as of this encounter Visit Diagnoses [...] documented as of this encounter Care Teams Engineering Technologist Relationship Specialty Start Date End Date Chris Medel MD [address] [place] [address] PCP - General 03/14/25 Ruma Hernández APRN [address] [place] [address] Referring Physician Gastroenterology 07/30/23 documented as of this encounter
--- OUTSIDE RECORDS SUMMARY | 2025-09-19 14:27 | XMS_ITS | Encounter Summary ---
Author Organization [facility] Address [address] [place] [address] Care Team Providers Care Manager Heart Failure Name Role Phone Unavailable Primary Care Provider [...] release of HIV test results or diagnoses. [id number] Health Encounter Details Date Type Department Care Team (Late st Contact Info) Description 08/02/2025 Chart Note [facility] Liver Transplant at [address] [address] Cori Dover MA Liver transplant referral entered. [...]
--- OUTSIDE RECORDS SUMMARY | 2025-09-19 14:27 | XMS_ITS | Encounter Summary ---
Author Organization [facility] Address [address] [place] [address] Care Team Providers Care Single Corner Cutter Name Role Phone System, Provider Not In [...] release of HIV test results or diagnoses. [id number] Health Encounter Details Date Type Department Care Team (Late st Contact Info) Description 09/10/2025 Social Work [facility] Liver Transplant at [address] [address] Michelle Ho MSW, LSW Social History Tobacco Use Types Packs/Day Years [...] as of this encounter Progress Notes * MADHAV Arias LSW - 09/10/2025 11:59 PM EDT TRANSPLANT PSYCHOSOCIAL ASSESSMENT Support Persons: Stacy Pop (): [phone] Daniel (brother) Gloria (daughter) Urban Patterson (neighbor) Lan (son): [phone] Past and Current Life / Social Situation: Patient is a 65 year old male who resides with his . He has a high school education. 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 He was never in the . His hobbies include fishing and hunting. Family History: Patient and his have been 31 years. He has a son from a previous relationship (Lan, 41) and a daughter (Gloria, 28) with his current . His father is . His mother is alive and in a nursing facility. He has one sisters (Alexus, 70) and one brother (Daniel, 67). Client's Perception of Medical Condition: Patient is referred for liver transplant evaluation in the liver transplant clinic by hepatology. SW met with patient and his in our Multi D clinic to complete a liver transplant psychosocialassessment. Patient reports that he carries a diagnosis of cirrhosis secondary to alcohol. His decompensations include HE, ascites, and jaundice. Most recent MELD 20. SW provided education for pre and post-transplant. He is currently listed at [facility]. He does not have any church, ethnic, or personal objections to accepting blood products, having surgery, or receiving a transplant. Patient states that he understands the process of liver transplant, and he is choosing liver transplant as his treatment option. Adherence: SW explained the importance of compliance to medical advice, adherence to medical appointments and medications and prompt communication with the transplant team. SW explained that this will be closely monitored and a pattern of non-adherence moving forward would be a barrier to transplant. Patient to be monitored closely to ensure he and support are able to demonstrate improved adherence/compliance. Patient verbalized understanding. Support Plan: Patient's , brother, daughter, neighbor and other family will provide 24 hour post-transplant support and will be able to provide transportation. Patient's works full-time but has access to PTO and vacation time. Patient's brother, neighbor, and adult children will also assist with post-OLT care. He was provided a document describing what type of post-transplant support is needed. Psychiatric History: Patient denies a history of diagnosis or treatment of psychiatric disorders. He denies history of inpatient psychiatric admission, suicidal ideation and suicide attempts. PHQ-9 Scores: 09/10/2025 11:09 AM PHQ Total Score PHQ-9 Total Score 8 GAD7 Scores: 09/10/2025 11:09 AM [id number] Score CLAUDIA-7 Total Score 1 Reviewed results of questionnaires with patient. (PHQ-9 score: 8, CLAUDIA-7 score: 1). Patient's scores are not concerning for symptoms of depression and anxiety at this time. Discussion had regarding coping skills during difficult times and patient reported that he likes tostay active, think positively, and talk to his for support. SW discussed the availability of transplant mental health resources. Patient denies resources at this time, but will notify SW if the need arises. Alcohol/Other Drug History: He denies a history of illicit substance abuse. He denies a history of abuse of prescription medications. He is a former smoker. He has a significant history of alcohol abuse. He has maintained sobriety since 02/2023. He reports consuming approximately 10-12 beers per day for many years. He started drinking at the age 17. He has been charged with two, remote DUIs (both over 30 years ago). He has not participated in CD treatment. 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 He notes that he has copious amounts of sober supports and hobbies to keep him occupied in the setting of relapse prevention. Patient is over 6 months sober and is not required to complete CD treatment. Discussion held regarding sobriety maintenance. Patient verbalizes understanding and will notify SW if any CD resources would be beneficial. Narcotic Pain Medication: Patient is not currently taking any narcotic medication. Rehabilitation Plans: Patient would like to regain his health and energy. Evaluation/Impression: Patient is an 65-year-old male with a diagnosis of cirrhosis secondary to Met- ALD/alcohol who presents for his initial evaluation for transplant consideration. Patient presented as knowledgeable regarding his diagnosis and available treatment options. Patient identified his and other family mem bers as post-transplant caregivers. He denies a history of diagnosis or treatment of psychiatric disorders. He denies a history of illicit substance abuse. He has a history of alcohol abuse, sober since 02/2023. Patient reports living with his in a multi.-story home. Patient has several stairs entering the home. Patient denies the use of assistive devices to ambulate. Patient is independent with his ADLs and iADLs. SW discussed psychosocial risks from the transplant, such as PTSD, generalized anxiety disorder, and anxiety about being dependent on others. SW also explained that he may have feelings of guilt. SW discussed the potential psychiatric side effects of post-transplant medications. SW explained that these medications, particularly prednisone, can cause mood swings and amplify any underlying emotional states. SW verbally discussed the patient's psychosocial evaluation with the ppap coordinator (Ezekiel Alcantar). The patient participated in the interview and he has a good understanding of what he will need to do to be listed for liver transplant. His care plan and my recommendations are listed below. He has no psychosocial barriers at this time Recommendations: He has clear instructions of what he will need for post-transplant support and transportation. He is aware and is agreeable to the plan. SW will follow as needed in the transplant clinic. Patient was provided SW contact name and phone number for additional needs. MADHAV Arias, TONYA [phone] TRANSPLANT PSYCH NOTEWRITER: Txp Clinic Entry Point: 03 Multi-D Clinic Social Work Assessment: 01 New Patient SW Evaluation Location: 02 [facility] Patient Barriers & Recommendations: 01 No Barriers documented in this encounter Plan of Treatment Not on file documented as of this encounter Visit Diagnoses Not on filedocumented in this encounter Additional Health Concerns Assessment Noted Time PHQ-9 Depression Total Score: 8 09/10/20 11:09 AM EDT documented as of this encounter Care Teams Single Corner Cutter Relationship Specialty Start Date End Date System, Provider Not In PCP - General 09/10/25 documented as of this encounter
--- OUTSIDE RECORDS SUMMARY | 2025-09-19 14:27 | XMS_ITS | Encounter Summary ---
Author Organization [facility] Address [address] [place] [address] Care Team Providers Care Fabric And Accessories Estimator Name Role Phone System, Provider Not In [...] release of HIV test results or diagnoses. [id number] Reason for Visit * Reason Comments Prior Authorization Encounter Details Date Type Department Care Team (Late st Contact Info) Description 09/18/2025 Pharmacy Services [facility] [address] [place] [address] Delaney Bahena RXT Social History Tobacco Use [...] documented as of this encounter Care Teams Fabric And Accessories Estimator Relationship Specialty Start Date End Date System, Provider Not In PCP - General 09/10/25 documented as of this encounter
--- OUTSIDE RECORDS SUMMARY | 2025-09-19 14:27 | XMS_ITS ---
Author Organization [facility] Address [address] [place] [id number] Care Team Providers Care Demographer Name Role Phone System, Provider Not In Primary Care Provider Un available Transplant Episode Liver Candidate [facility] ([place], [place]) - [facility] Evaluation began on 09/10/2025 Marked as Active on 09/10/2025 Liver CoordinatorChapito Alcantar RN Phone: N/A Fax: N/A Email: N/A Scores Score Value Updated Expires Exceptions/Latricia sons CPRA Not available UNOS MELD Not available MELD (Calc) 23 09/10/2025 Habematolel Organ Diagnosis 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 Care Team Name Role Phone Fax Email Chapito Alcantar RN Liver Coordinator N/A N/A N/A Chapito Alcantar RN Txp Pre Coordinator N/A N/A N/A Portia Maguire Referring Physician [phone] N/A MADHAV Arias, FINANCIAL AGENT Txp Paper Reel Operator N/A N/A N/A Events Pre-Transplant Referred: 08/02/2025 Evaluation began: 09/10/2025 Committee: 09/11/2025 Recently Completed Checklist Tasks (Completed 08/19/2025 - 09/19/2025) Name Completion Date Additional Info Social Work Consult 09/11/2025 Appointments (08/19/2025 - 10/19/2025) When With Visit Type Description 09/10/2025 Txp [...]
[2025-09-19 15:10] LABS: Bilirubin,Direct 1.1 mg/dl (0.0-0.4); Bilirubin,Indirect 6.6 mg/dL (0.0-0.9); Bilirubin,Total 7.7 mg/dl (0.2-1.3); Bilirubin,Unconjugated 6.6 mg/dL (0.0-1.1)
--- NOTE | 2025-09-19 18:11 | PC.NURSE ---
Pt is A&Ox4. Vital signs stable tolerating room air. Pt has no complaints of abdominal pain. Pt has had no nausea or vomiting this shift. Urine color has remained dark tyree color. Pt awaiting open bed at for transfer. called this RN this morning to inform that there was still no bed available at this time. Pt resting comfortably in bed with no further needs voiced at this time. at bedside. Call light within reach.
[2025-09-19] MEDS: HYDROMORPHONE 2MG/ML SYRINGE 0.25 MG IV (20:40)
[2025-09-19] MEDS: PANTOPRAZOLE 40MG TABLET 40 MG PO (20:40)
--- NOTE | 2025-09-19 21:50 | EXP.PN ---
Subjective *Date: 09/30/25 *Time: 11:18 Interval history: Patient feeling better this morning, LFTs also improving slowly. Bilirubin still quite elevated. Tolerating diet, no abdominal pain. Continue coverage of SBP with ceftriaxone. If LFTs continue to improve tomorrow, can discharge with close follow-up with . Otherwise continue transfer to . Exam Data for Last 24 hours Vital signs and Labs for Last 24 Hours: Temp Pulse Resp BP Pulse Ox O2 Del Method 98.4 F 76 16 103/56 L 94 L Room Air 09/19/25 20:00 09/19/25 20:00 09/19/25 20:00 09/19/25 20:00 09/19/25 20:00 09/19/25 21:00 Laboratory Results - last 24 hr 09/18/25 18:32: Blood Type Confirm A Positive 09/18/25 22:38: Blood Type A Positive, Antibody Screen Negative 09/18/25 23:56: Lactate 3.9 H 09/19/25 02:25: Lactate 3.4 H 09/19/25 05:38: WBC 9.7, RBC 2.68 L, Hgb 9.3 L D, Hct 27.4 L, MCV 102.2 H, MCH 34.7 H, MCHC 33.9, RDW 17.0, Plt Count 43 L*, MPV 11.1 H, Neut % (Auto) 75.1, Lymph % (Auto) 14.1, [place] % (Auto) 9.2, Eos % (Auto) 0.9, Baso % (Auto) 0.3, Neut # (Auto) 7.3, Lymph # (Auto) 1.4, [place] # (Auto) 0.9, Eos # (Auto) 0.1, Baso # (Auto) 0.0, Sodium 128 L, Potassium 3.9 D, Chloride 102, Carbon Dioxide 23, Anion Gap 6.9, BUN 23 H, Creatinine 1.00, Estimated Creat Clear 104, Estimated GFR 75, Est GFR ( Amer) 91, Glucose 105 H, Calcium 7.2 L, Total Bilirubin 9.0 H, AST 43 D, ALT 34 D, Alkaline Phosphatase 108, Ammonia 51 H, Total Protein 5.6 L, Albumin 2.2 L D, Globulin 3.4 H, Albumin/Globulin Ratio 0.6 L 09/19/25 14:50: Lactate 1.9, Total Bilirubin 7.7 H, Direct Bilirubin 1.1 H, Conjugated Bilirubin 0.3, Indirect Bilirubin 6.6 H, Unconjugated Bilirubin 6.6 H I & O for Last 24 hours: Intake & Output 09/16/25 09/17/25 09/18/25 09/19/25 22:59 23:59 23:59 23:59 Intake Total 100 / 640 2190.13 / 2190.13 Output Total 825 / 825 Balance 100 / 640 1365.13 / 1365.13 Weight 98.883 kg 98.883 kg Microbiology Reports for the Last 24 Hours: Microbiology 09/18/25 20:15 Blood Blood Culture - Preliminary NO GROWTH AFTER 24 HOURS 09/18/25 20:10 Blood Blood Culture - Preliminary NO GROWTH AFTER 24 HOURS 09/18/25 19:10 Urine,Clean Catch Urine Culture - Preliminary Constitutional Constitutional: no acute distress and obese *Routine HEENT Exam Head: Present normocephalic Eye: Present EOMI and PERRL ENT: Present mucous membranes moist *Routine Neck Exam Neck: Present supple; Absent lymphadenopathy *Routine Respiratory Exam Respiratory: Present CTA bilaterally *Routine Cardiovascular Exam Cardiovascular: Present RRR *Routine Abdominal Exam Abdominal: Present soft and normoactive bowel sounds; Absent tenderness *Routine Extremities Exam Extremities: Absent cyanosis, clubbing or edema *Routine Skin Exam Skin: Present warm; Absent rash *Routine Neurological Exam Neurological: Present alert and oriented X3 Assessment and Plan *Assessment and plan (1) Cirrhosis of liver: Status: Acute Qualifiers: Hepatic cirrhosis type: other cirrhosis Qualified Code(s): K74.69 - Other cirrhosis of liver Category: Medical Code(s): K74.60 - Unspecified cirrhosis of liver (2) Ascites: Status: Acute Qualifiers: Ascites type: other type Qualified Code(s): R18.8 - Other ascites Category: Medical Code(s): R18.8 - Other ascites (3) Thrombocytopenia: Status: Acute Category: Medical Code(s): D69.6 - Thrombocytopenia, unspecified (4) Coagulopathy: Status: Acute Category: Medical Code(s): D68.9 - Coagulation defect, unspecified (5) Lactic acidosis: Status: Acute Category: Medical Code(s): E87.20 - Acidosis, unspecified (6) Hematuria: Status: Acute Qualifiers: Hematuria type: gross Qualified Code(s): R31.0 - Gross hematuria Category: Medical Code(s): R31.9 - Hematuria, unspecified (7) Esophageal varices: Status: Acute Qualifiers: Esophageal varices bleeding: without bleeding Esophageal varices type: unspecified type Qualified Code(s): I85.00 - Esophageal varices without bleeding Category: Medical Code(s): I85.00 - Esophageal varices without bleeding (8) Hypocalcemia: Status: Acute Category: Medical Code(s): E83.51 - Hypocalcemia (9) UTI (urinary tract infection): Status: Acute Qualifiers: Hematuria presence: with hematuria Urinary tract infection type: site unspecified Qualified Code(s): N39.0 - Urinary tract infection, site not specified; R31.9 - Hematuria, unspecified Category: Medical Code(s): N39.0 - Urinary tract infection, site not specified Plan David Pop is a 65-year-old male with a medical history significant for cirrhosis on transplant list at [facility] presented with nausea, hematuria, weakness and states that he feels fluid overloaded. #Nausea #Hematuria #Weakness #UTI ? UA and symptoms consistent with UTI, urine culture pending at this time. ? Patient ambulating independently at this time, feels better this morning. No longer having nausea, hematuria also improving. ? Continue IV ceftriaxone 2 g daily pending urine culture. #Cirrhosis #Thrombocytopenia #Esophageal varices - Current sodium MELD score is 24 it was 18 in August; Child-Alexis class B. ? Patient does not seem frankly decompensated at this time. No signs of volume overload, ascites, alert and oriented x 4. Low concern for SBP. ? Total bilirubin still elevated to 9.0 today, peaked at 9.5. Other LFTs stable. Will continue to monitor, will keep on UC wait list at this time. Baseline around bilirubin around 4.5. ? Hold home beta-leatha at this time due to soft pressures. ? Continue Lasix 20mg daily, spironolactone 50 mg, rifaximin. #Gastritis #GERD ? Seen on CT abdomen/pelvis. Continue home PPI. #Enteritis #Left upper quadrant small bowel and distal duodenum edema ? Seen on CT abdomen/pelvis. Patient did have diarrhea prior to coming to the hospital. Seems to have resolved today. No abdominal pain. Continue monitor. Full code DVT prophylaxis: Patient is ambulatory
--- NOTE | 2025-09-20 03:30 | PC.NURSE ---
Pt AOx4, pleasant. Independent. Pain treated per MAR. Currently resting in bed with eyes closed. Respiration even and unlabored. Bed is low, locked, and call light is in reach. at bedside.
[2025-09-20 04:00] VITALS: BP 104/61; PULSE 69; RESP 16; TEMP 36.6; O2SAT 93; BMI 33.7
[2025-09-20 06:19] LABS: Hematocrit 25.5 % (42.0-52.0); Hemoglobin 8.7 g/dL (14.1-18.0); Immature Granulocytes % 1.6 %; Mean Corpuscular HGB Conc 34.1 g/dL (31.8-35.4); Mean Corpuscular Hemoglobin 34.5 pg (27.0-31.2); Mean Corpuscular Volume 101.2 fl (80-94); Nucleated Red Blood Cells % 0 %; Platelet Count 61 K/mm3 (142-424); Red Blood Count 2.52 M/mm3 (4.60-6.20); Red Cell Distribution Width-SD 60.4 fL; White Blood Count 6.9 K/mm3 (4.8-10.8)
[2025-09-20 06:30] LABS: Alanine Aminotransferase 31 U/L (12-78); Albumin Level 1.9 g/dl (3.5-5.0); Albumin/Globulin Ratio 0.5 (1.1-1.8); Alkaline Phosphatase 126 U/L (38-126); Anion Gap 1.4 mEq/L (5-15); Aspartate Amino Transferase 38 U/L (17-59); Bilirubin,Total 4.8 mg/dl (0.2-1.3); Blood Urea Nitrogen 18 mg/dl (9-20); Calcium 7.4 mg/dl (8.4-10.2); Carbon Dioxide 27 mmol/L (22.0-30.0); Chloride 101 mmol/L (98-107); Creatinine Clearance Estimated 107 mL/min (50-200); Creatinine,Serum 0.90 mg/dl (0.66-1.25); Estimated Glomerular Filt Rate 85 ml/min (>60); GFR (African American) 103 ML/MIN (>60); Globulin 3.9 g/dL (1.3-3.2); Glucose 120 mg/dl (74-100); Potassium 3.4 mmoL/L (3.5-5.1); Sodium 126 mmol/L (136-145); Total Protein,Serum 5.8 g/dl (6.3-8.2)
[2025-09-20 07:45] VITALS: BP 106/52; PULSE 69; RESP 20; TEMP 36.5; O2SAT 97
[2025-09-20] MEDS: SPIRONOLACTONE 25MG TABLET 50 MG PO (08:59)
[2025-09-20] MEDS: FUROSEMIDE 20MG TABLET 20 MG PO (08:59)
[2025-09-20] MEDS: FUROSEMIDE 40MG/4ML VIAL 40 MG IV (10:10)
--- NOTE | 2025-09-20 11:18 | EXP.DC.SUM ---
General Admission date:: 09/18/25 HPI HPI HPI: This is a 65-year-old male who has a past medical history significant for cirrhosis, bronchitis, nephrolithiasis, heart murmur, anemia, migraine, hypertension, and hyperlipidemia who presents with a chief complaint of abdominal pain, nausea, diarrhea, and fall. Due to patient's symptoms, he presented to the emergency room for evaluation. While in the emergency room, CT scan of the abdomen pelvis revealed a small left basilar pleural effusion with compressive atelectasis, nodule contours of the liver compatible with cirrhosis, paraesophageal and splenic varices compatible with portal hypertension, moderate thickening/edema of the gastric atrium and duodenal bulb compatible with gastritis, moderate to severe edema of the left upper quadrant of the small bowel and distal duodenum may represent infectious/inflammatory enteritis is less likely to be associated with ischemia, cholelithiasis and no evidence of cholecystitis. Patient's case was discussed with [facility] for transfer. They excepted patient but did not have bed availability, so patient was admitted for further management until bed has been made available. During my evaluation of the patient, patient states his symptoms started earlier this morning with abdominal pain, nausea, and shakiness. He voices that he was having some nausea and did not want to vomit in the house, so he went outside and put his foot on a wooden step and unfortunately failed. Patient states he laid there for a second and then got up and called his . He has been having some cramping in his abdomen since this a.m. states that patient's urine has been orange in color; however, while in the emergency room, patient was having some hematuria. Patient is currently on the liver transplant team and almost had a liver transplant in May; however, the donor did survive his/her hospitalization so the liver was transplant was called off. Patient is currently denying any chest pain, lightheadedness, dizziness, fever, chills, rigors, shortness of breath, dyspnea, or headache. Additional pertinent vitals obtained include a red blood cell count of 3.18, hemoglobin 11.1, hematocrit 33.1, platelet count 49, neutrophils of 84.2%, INR 1.65, sodium 135, chloride 108, lactate 3.7, calcium 7.8, total bilirubin 9.5, AST of 82, alkaline phosphate 132, BNP of 208, albumin of 2.9, and urinalysis revealed 3+ protein/3+ blood in urine/nitrate positive/3+ leukocyte esterase/1+ bacteria. Hospital Course Hospital Course Hospital Course: David Pop is a 65-year-old male with a medical history significant for cirrhosis on transplant list at [facility] presented with nausea, hematuria, weakness and states that he feels fluid overloaded. #Nausea #Hematuria #Weakness #UTI ? UA and symptoms consistent with UTI, urine culture pending at this time. ? Patient ambulating independently at this time, feels better this morning. No longer having nausea, hematuria also improving. ? Back to baseline this morning. UTI treated empirically with IV ceftriaxone, will transition to levofloxacin. ? Discharged with levofloxacin 750 mg daily for 5 more days. Follow-up with PCP within 1 week. #Cirrhosis #Thrombocytopenia #Esophageal varices - Current sodium MELD score is 24 it was 18 in August; Child-Alexis class B. Patient is currently on liver transplant list at [facility]. ? Patient does not seem frankly decompensated at this time. No signs of volume overload, ascites, alert and oriented x 4. Low concern for SBP. ? Total bilirubin improved to 4.8 today, peaked at 9.5. Other LFTs stable. Initially placed on waitlist for UC, but patient is back to baseline today. Will follow-up outpatient within 2 weeks. ? Hold home beta-leatha at this time due to soft pressures. ? Continue Lasix 20mg daily, spironolactone 50 mg, rifaximin. Given one-time dose of IV Lasix 40 mg during admission. #Gastritis #GERD ? Seen on CT abdomen/pelvis. Continue home PPI. #Enteritis #Left upper quadrant small bowel and distal duodenum edema ? Seen on CT abdomen/pelvis. Patient did have diarrhea prior to coming to the hospital. Seems to have resolved. No abdominal pain. Total time spent on discharge: 31 minutes on chart review, counseling, documentation, and direct care with patient. Exam Data for Last 24 hours Vital signs and Labs for Last 24 Hours: Temp Pulse Resp BP Pulse Ox O2 Del Method 97.7 F 69 20 106/52 L 97 Room Air 09/20/25 07:45 09/20/25 07:45 09/20/25 07:45 09/20/25 07:45 09/20/25 07:45 09/20/25 11:00 Laboratory Results - last 24 hr 09/18/25 19:10: Urine Color Red, Urine Appearance Turbid, Urine pH 6.5, Ur Specific [place] 1.020, Urine Protein 3+ A, Urine Glucose (UA) Trace, Urine Ketones 1+, Urine Blood 3+ A, Urine Nitrate Positive A, Urine Bilirubin Negative, Urine Urobilinogen 4.0, Ur Leukocyte Esterase 3+ A, Urine RBC Tntc, Urine WBC Tntc, Ur Squamous Epith Cells 3-5, Urine Bacteria 1+, Urine Mucus 1+ 09/19/25 14:50: Lactate 1.9, Total Bilirubin 7.7 H, Direct Bilirubin 1.1 H, Conjugated Bilirubin 0.3, Indirect Bilirubin 6.6 H, Unconjugated Bilirubin 6.6 H 09/20/25 05:56: WBC 6.9 D, RBC 2.52 L, Hgb 8.7 L, Hct 25.5 L, MCV 101.2 H, MCH 34.5 H, MCHC 34.1, RDW 16.5, Plt Count 61 L D, MPV 10.3, Neut % (Auto) 59.0, Lymph % (Auto) 21.0, [place] % (Auto) 14.6 H, Eos % (Auto) 3.4, Baso % (Auto) 0.4, Neut # (Auto) 4.0, Lymph # (Auto) 1.4, [place] # (Auto) 1.0, Eos # (Auto) 0.2, Baso # (Auto) 0.0, Sodium 126 L, Potassium 3.4 L, Chloride 101, Carbon Dioxide 27, Anion Gap 1.4 L, BUN 18, Creatinine 0.90, Estimated Creat Clear 107, Estimated GFR 85, Est GFR ( Amer) 103, Glucose 120 H, Calcium 7.4 L, Total Bilirubin 4.8 H, AST 38, ALT 31, Alkaline Phosphatase 126, Total Protein 5.8 L, Albumin 1.9 L D, Globulin 3.9 H, Albumin/Globulin Ratio 0.5 L I & O for Last 24 hours: Intake & Output 09/17/25 09/18/25 09/19/25 09/20/25 23:59 23:59 23:59 23:59 Intake Total 100 / 640 2190.13 / 2190.13 270 / 270 Output Total 1277 / 1277 930 / 930 Balance 100 / 640 913.13 / 913.13 -660 / -660 Weight 98.883 kg 98.883 kg 100.97 kg Microbiology Reports for the Last 24 Hours: Microbiology 09/18/25 19:10 Urine,Clean Catch Urine Culture - Preliminary Gram Positive Cocci 09/18/25 20:15 Blood Blood Culture - Preliminary NO GROWTH AFTER 24 HOURS 09/18/25 20:10 Blood Blood Culture - Preliminary NO GROWTH AFTER 24 HOURS Constitutional Constitutional: obese Results Data Completed and Pending Labs on day of discharge: Labs from last 24 hours 09/20/25 09/19/25 09/18/25 05:56 14:50 19:10 WBC 6.9 D RBC 2.52 L Hgb 8.7 L Hct 25.5 L MCV 101.2 H MCH 34.5 H MCHC 34.1 RDW 16.5 Plt Count 61 L D MPV 10.3 Neut % (Auto) 59.0 Lymph % (Auto) 21.0 [place] % (Auto) 14.6 H Eos % (Auto) 3.4 Baso % (Auto) 0.4 Neut # (Auto) 4.0 Lymph # (Auto) 1.4 [place] # (Auto) 1.0 Eos # (Auto) 0.2 Baso # (Auto) 0.0 Sodium 126 L Potassium 3.4 L Chloride 101 Carbon Dioxide 27 Anion Gap 1.4 L BUN 18 Creatinine 0.90 Estimated Creat Clear 107 Estimated GFR 85 Est GFR ( Amer) 103 Glucose 120 H Lactate 1.9 Calcium 7.4 L Total Bilirubin 4.8 H 7.7 H Direct Bilirubin 1.1 H Conjugated Bilirubin 0.3 Indirect Bilirubin 6.6 H Unconjugated Bilirubin 6.6 H AST 38 ALT 31 Alkaline Phosphatase 126 Total Protein 5.8 L Albumin 1.9 L D Globulin 3.9 H Albumin/Globulin Ratio 0.5 L Urine Color Red Urine Appearance Turbid Urine pH 6.5 Ur Specific [place] 1.020 Urine Protein 3+ A Urine Glucose (UA) Trace Urine Ketones 1+ Urine Blood 3+ A Urine Nitrate Positive A Urine Bilirubin Negative Urine Urobilinogen 4.0 Ur Leukocyte Esterase 3+ A Urine RBC Tntc Urine WBC Tntc Ur Squamous Epith Cells 3-5 Urine Bacteria 1+ Urine Mucus 1+ Preliminary micro results at discharge 09/18/25 19:10 Urine Culture - Preliminary Urine,Clean Catch Gram Positive Cocci 09/18/25 20:15 Blood Culture - Preliminary Blood NO GROWTH AFTER 24 HOURS 09/18/25 20:10 Blood Culture - Preliminary Blood NO GROWTH AFTER 24 HOURS DS: Diagnosis Discharge Diagnosis (1) Cirrhosis of liver: Status: Acute Code(s): K74.60 - Unspecified cirrhosis of liver Qualifiers: Hepatic cirrhosis type: other cirrhosis Qualified Code(s): K74.69 - Other cirrhosis of liver (2) Ascites: Status: Acute Code(s): R18.8 - Other ascites Qualifiers: Ascites type: other type Qualified Code(s): R18.8 - Other ascites (3) Thrombocytopenia: Status: Acute Code(s): D69.6 - Thrombocytopenia, unspecified (4) Coagulopathy: Status: Acute Code(s): D68.9 - Coagulation defect, unspecified (5) Lactic acidosis: Status: Acute Code(s): E87.20 - Acidosis, unspecified (6) Hematuria: Status: Acute Code(s): R31.9 - Hematuria, unspecified Qualifiers: Hematuria type: gross Qualified Code(s): R31.0 - Gross hematuria (7) Esophageal varices: Status: Acute Code(s): I85.00 - Esophageal varices without bleeding Qualifiers: Esophageal varices bleeding: without bleeding Esophageal varices type: unspecified type Qualified Code(s): I85.00 - Esophageal varices without bleeding (8) Hypocalcemia: Status: Acute Code(s): E83.51 - Hypocalcemia (9) UTI (urinary tract infection): Status: Acute Code(s): N39.0 - Urinary tract infection, site not specified Qualifiers: Hematuria presence: with hematuria Urinary tract infection type: site unspecified Qualified Code(s): N39.0 - Urinary tract infection, site not specified; R31.9 - Hematuria, unspecified Meds Home Medications and Allergies Home Medications ?Medication ?Instructions ?Recorded ?Confirmed ?Type furosemide 20 mg tablet 20 mg PO DAILY 07/15/23 09/19/25 History omeprazole 20 mg capsule,delayed 20 mg PO DAILY 07/15/23 09/18/25 History release spironolactone 50 mg tablet 50 mg PO DAILY 07/15/23 09/19/25 History calcium 600 mg (as 1 tab PO BID 05/28/25 09/18/25 History carbonate)-vitamin D3 10 mcg (400 unit) tablet ergocalciferol (vitamin D2) 1,250 1,250 mcg PO WEEKLY 05/28/25 09/18/25 History mcg (50,000 unit) capsule (Vitamin D2) rifaximin 550 mg tablet (Xifaxan) 550 mg PO BID 05/28/25 09/18/25 History calcitriol 0.25 mcg capsule 0.25 mcg PO DIRECTED 07/20/25 09/19/25 History carvedilol 3.125 mg tablet 3.125 mg PO BID 07/20/25 09/18/25 History levofloxacin 750 mg tablet 750 mg PO DAILY 5 days #5 tabs 09/20/25 Rx New Prescriptions to Start Prescriptions: levofloxacin Urban Talley Allergies Allergy/AdvReac Type Severity Reaction Status Date / Time lisinopril AdvReac cough Verified 07/20/25 09:38 Discharge Plan Disposition Patient Disposition: Home, Self-Care Condition: Fair Discharge Order Discharge Orders: Discharge Order (Routine); Ordered 09/20/25 Ordered By: Urban Talley Follow up Plan Follow up with: Chris Medel MD [Primary Care Provider, [facility]] - 09/27/25 1:00 pm Prescriptions/Medication Reconciliation: New levofloxacin 750 mg tablet 750 mg PO DAILY 5 Days Qty: 5 0RF Continued calcitriol 0.25 mcg capsule 0.25 mcg PO DIRECTED Rx Instructions: administer after dialysis on dialysis days spironolactone 50 mg tablet 50 mg PO DAILY Rx Instructions: PT TAKES DAILY furosemide 20 mg tablet 20 mg PO DAILY Rx Instructions: PT TAKES DAILY omeprazole 20 mg capsule,delayed release(DR/EC) 20 mg PO DAILY carvedilol 3.125 mg tablet 3.125 mg PO BID ergocalciferol (vitamin D2) [Vitamin D2] 1,250 mcg (50,000 unit) capsule 1,250 mcg PO WEEKLY calcium carbonate-vitamin D3 600 mg-10 mcg (400 unit) tablet 1 tab PO BID Xifaxan 550 mg tablet 550 mg PO BID Problem Reconciliation Problems Reviewed?: Yes Patient Discharge Instructions Patient Instructions: DI for Cirrhosis, DI for Hypokalemia Print Language: [place] Providers Primary Care Provider: Chris Medel Admit Provider: Urban Talley Attending Provider: Urban Talley
[2025-09-20] MEDS: POTASSIUM CHLORIDE 20MEQ TAB 40 MEQ PO (11:33)
--- NOTE | 2025-09-21 10:27 | SW/DCPLANNER ---
Spoke with patient on the phone. Patient stated that he is aware of his upcoming appointments. Patient stated that he is doing well. Patient stated that he was able to get his medicine picked up. Patient stated that he has no concerns or questions at this time. Margarito Hylton
--- NOTE | 2025-09-23 02:16 | PC.NURSE ---
Results fwd to hospitalist
== END 2025-09-20 12:35 | disposition home or self-care (01) ==
LOC: ER 21:39 → 2ND 09-19 05:15
PROVIDERS: Nurse Practitioner Family; Physician Assistant; Admitting Provider Student in an Organized Health Care Education/Training Program; Emergency Provider Student in an Organized Health Care Education/Training Program; PCP Family Medicine; Visit Provider Student in an Organized Health Care Education/Training Program
DX: N39.0 Urinary tract infection, site not specified (principal); D68.9 Coagulation defect, unspecified; K76.6 Portal hypertension; R18.8 Other ascites; E87.20 Acidosis, unspecified; I85.00 Esophageal varices without bleeding; J98.11 Atelectasis; K74.69 Other cirrhosis of liver; D69.6 Thrombocytopenia, unspecified; Z76.82 Awaiting organ transplant status; E83.51 Hypocalcemia; I10 Essential (primary) hypertension; K29.70 Gastritis, unspecified, without bleeding; K52.9 Noninfective gastroenteritis and colitis, unspecified; K21.9 Gastro-esophageal reflux disease without esophagitis; K80.20 Calculus of gallbladder without cholecystitis without obstruction; E83.119 Hemochromatosis, unspecified; N40.0 Benign prostatic hyperplasia without lower urinary tract symptoms; R31.0 Gross hematuria; Z87.891 Personal history of nicotine dependence; Z79.899 Other long term (current) drug therapy; Z88.8 Allergy status to other drugs, medicaments and biological substances
CPT/HCPCS: 36415; 36430; 74177; 80053; 80320; 81001; 82140; 82247; 82248; 83605; 83690; 83880; 85025; 85610; 85730; 86850; 87040; 87086; 87088; 87186; 99285; J0696; J1171; J1938; J2270; J2405; P9034; Q9967

== ENCOUNTER 2025-10-08 07:08 | Outpatient (CLI) | payer BC, SELFPAY ==
--- OUTSIDE RECORDS SUMMARY | 2023-08-27 07:34 | XMS_ITS | Encounter Summary ---
[facility] [address] [place] [address] Care Team Providers Care Manager Of Case Name Role Phone Karon Urban Jc DO Primary Care Provider +1 -[phone] Encounter Details Date Type Department Care Team (Late st Contact Info) Description 08/27/2023 8:34 AM EDT Hospital Encounter [facility] PULMONARY & CRITICAL CARE MEDICINE [address] [place] [phone] Social History Tobacco Use Types Packs/Day [...] on filedocumented in this encounter Care Teams Manager Of Case Relationship Specialty Start Date End Date Urban Brantley DO [address] [place] [address] [place] [address] PCP - General Internal Medicine 03/22/23 documented as of this encounter
--- OUTSIDE RECORDS SUMMARY | 2025-09-08 19:31 | XMS_ITS | Encounter Summary ---
Author Organization [facility] Address [address] [place] [address] Care Team Providers Care Forest Fire Equipment Operator Name Role Phone Unknown, Attending Provider Primary [...] release of HIV test results or diagnoses. [id number] Reason for Referral * Imaging/Cardiovascular Scan (Routine) - New Request Specialty Diagnoses / Procedures Referred By Contac t Referred To Contact Radiology Procedures CT Abdomen and or Pelvis Outside Exam System, Provider Not In [address] [address] Referral ID Status Reason Start Date Expiration Date V isits Requested Visits Authorized [id number] New Request 09/08/2025 03/07/2026 1 1 Reason for Visit * Imaging/Cardiovascular Scan (Routine) - New Request Specialty Diagnoses / Procedures Referred By Contac t Referred To Contact Radiology Procedures CT Abdomen and or Pelvis Outside Exam System, Provider Not In [address] [address] Referral ID Status Reason Start Date Expiration Date V isits Requested Visits Authorized [id number] New Request 09/08/2025 03/07/2026 1 1 Encounter Details Date Type Department Care Team (Latest Contact Info) Description 09/08/2025 8:31 PM EDT - 09/08/2025 8:33 PM EDT Hospital Encounter [facility] Radiology [address] [place] [address] System, Provider Not In Discharge Disposition: Home [...] a week. Once daily Wednesday through Wednesday08/08/2025 ergocalciferol (ERGOCALCIFEROL) 1,250 mcg (50,000 unit) capsule Take 1 capsule (50,000 Units total) by mouth once a week. 03/08/2025 furosemide (LASIX) 20 MG tablet Take 2 tablets (40 mg total) by mouth daily. 03/13/2024 03/14/2026 omeprazole (PRILOSEC) 20 MG capsule Take 2 capsules (40 mg total) by mouth daily. 03/14/2025 spironolactone (ALDACTONE) 50 MG tablet Take 3 tablets (150 mg total) by mouth daily. 03/13/2024 12/22/2025 XIFAXAN 550 mg Tab tablet Take 1 tablet (550 mg total) by mouth 2 times a day. 01/15/2025 carvediloL (COREG) 3.125 MG tablet Take 1 [...] on filedocumented in this encounter Care Teams Forest Fire Equipment Operator Relationship Specialty Start Date End Date Unknown, Attending Provider PCP - General 08/29/2508/16 documented as of this encounter
--- OUTSIDE RECORDS SUMMARY | 2025-09-08 19:31 | XMS_ITS | Encounter Summary ---
Author Organization [facility] Address [address] [place] [address] Care Team Providers Care Motorcycle Mechanic Name Role Phone Unknown, Attending Provider Primary [...] release of HIV test results or diagnoses. [id number] Health Encounter Details Date Type Department Care Team (Latest Contact Info) Description 09/08/2025 8:31 PM EDT - 09/08/2025 8:33 PM EDT Hospital Encounter [facility] Radiology [address] [place] [address] System, Provider Not In Discharge Disposition: Home [...] on filedocumented in this encounter Care Teams Motorcycle Mechanic Relationship Specialty Start Date End Date Unknown, Attending Provider PCP - General 08/29/2508/16 documented as of this encounter
--- OUTSIDE RECORDS SUMMARY | 2025-09-08 19:34 | XMS_ITS | Encounter Summary ---
Author Organization [facility] Address [address] [place] [address] Care Team Providers Care Addiction Treatment Counselor Name Role Phone Unknown, Attending Provider Primary [...] release of HIV test results or diagnoses. [id number] Health Encounter Details Date Type Department Care Team (Latest Contact Info) Description 09/08/2025 8:34 PM EDT - 09/08/2025 11:59 PM EDT Hospital Encounter [facility] Radiology [address] [place] [address] System, Provider Not In Discharge Disposition: Home [...] on filedocumented in this encounter Care Teams Addiction Treatment Counselor Relationship Specialty Start Date End Date Unknown, Attending Provider PCP - General 08/29/2508/16 documented as of this encounter
--- OUTSIDE RECORDS SUMMARY | 2025-09-08 19:34 | XMS_ITS | Encounter Summary ---
Author Organization [facility] Address [address] [place] [address] Care Team Providers Care Dumb Waiter Operator Name Role Phone Unknown, Attending Provider [...] release of HIV test results or diagnoses. [id number] Reason for Referral * Imaging/Cardiovascular Scan (Routine) - New Request Specialty Diagnoses / Procedures Referred By Contac t Referred To Contact Radiology Procedures CT Abdomen and or Pelvis Outside Exam System, Provider Not In [address] [address] Referral ID Status Reason Start Date Expiration Date V isits Requested Visits Authorized [id number] New Request 09/08/2025 03/07/2026 1 1 Reason for Visit * Imaging/Cardiovascular Scan (Routine) - New Request Specialty Diagnoses / Procedures Referred By Contac t Referred To Contact Radiology Procedures CT Abdomen and or Pelvis Outside Exam System, Provider Not In [address] [address] Referral ID Status Reason Start Date Expiration Date V isits Requested Visits Authorized [id number] New Request 09/08/2025 03/07/2026 1 1 Encounter Details Date Type Department Care Team (Latest Contact Info) Description 09/08/2025 8:34 PM EDT - 09/08/2025 11:59 PM EDT Hospital Encounter Radiology [address] [place] [address] System, Provider Not In Discharge Disposition: Home [...] on filedocumented in this encounter Care Teams Dumb Waiter Operator Relationship Specialty Start Date End Date Unknown, Attending Provider PCP - General 08/29/2508/16 documented as of this encounter
--- OUTSIDE RECORDS SUMMARY | 2025-09-10 09:03 | XMS_ITS | Encounter Summary ---
Author Organization [facility] Address [address] [place] [address] Care Team Providers Care Relay Telegrapher Name Role Phone System, Provider Not In [...] release of HIV test results or diagnoses. [id number] Reason for Referral * Imaging/Cardiovascular Scan (Routine) - Closed Specialty Diagnoses / Procedures Referred By Gianna reyes Referred To Contact Radiology Diagnoses Pre-transplant evaluation for chronic liver disease Procedures CT Chest WO contrast [facility] Liver Transplant at [address] [address] Phone: tel: fax: Referral ID Status Reason Start Date Expiration Date Visits Re quested Visits Authorized [id number] Closed 08/13/2025 02/09/2026 1 1 Reason for Visit * Auth/Cert (Routine) Specialty Diagnoses / Procedures Referred By Gianna reyes Referred To Contact Radiology [facility] [address] [place] [address] Phone: tel: Referral ID Status Reason Start Date Expiration Date Visits Re quested Visits Authorized [id number] 1 1 Encounter Details Date Type Department Care Team (Latest Contact Info) Description 09/10/2025 10:03 AM EDT - 09/10/2025 11:59 PM EDT Hospital Encounter [facility] [address] [place] [phone] Nigel Reaves MD [address] [place] [address] Pre-transplant evaluation for chronic liver [...] within the right upper lobe with downstream aima-vm-mfwlabfexalby within the paramedian right upper lobe apex. [...] as of this encounter Care Teams Relay Telegrapher Relationship Specialty Start Date End Date System, Provider Not In PCP - General 09/10/25 documented as of this encounter
--- OUTSIDE RECORDS SUMMARY | 2025-09-10 11:00 | XMS_ITS | Encounter Summary ---
Author Organization [facility] Address [address] [place] [address] Care Team Providers Care Transport Analyst Name Role Phone System, Provider Not In [...] release of HIV test results or diagnoses. 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 Attending Physician: Stefan Gonzalez MD Date [...] Low Risk (06/15/2025) Received from [facility] Overall Financial Resource Strain (CARDIA) How hard is it for you to pay for the very basics like food, housing, medical care, and heating?: Not hard at all Food Insecurity: No Food Insecurity (06/15/2025) Received from [facility] Hunger Vital Sign Worried About Running Out of Food in the Last Year: Never true Ran Out of Food in the Last Year: Never true Transportation Needs: No Transportation Needs (06/15/2025) Received from [facility] PRAPARE - Transportation In the past 12 months, has lack of transportation kept you from medical appointments or from getting medications?: No In the past 12 months, has lack of transportation kept you from meetings, work, or from getting things needed for daily living?: No Physical Activity: Inactive (06/15/2025) Received from [facility] Exercise Vital Sign Days of Exercise per Week: 0 days Minutes of Exercise per Session: 0 min Stress: No Stress Concern Present (06/15/2025) Received from [facility] [place] of Occupational Health - Occupational Stress Questionnaire Do you feel stress - tense, restless, nervous, or anxious, or unable to sleep at night because yourmind is troubled all the time - these days?: Only a little Social Connections: Socially Integrated (06/15/2025) Received from [facility] Social Connection and Isolation Panel [NHANES] Frequency of Communication with Friends and Family: More than three times a week Frequency of Social Gatherings with Friends and Family: More than three times a week Attends Oriental Orthodox Services: More than 4 times per year Active Member of Clubs or Organizations: Yes Attends Club or Organization Meetings: Not on file Marital Status: Intimate Partner Violence: Not At Risk (06/15/2025) Received from [facility] Humiliation, Afraid, Rape, and Kick questionnaire Fear of Current or Ex-Partner: No Emotionally Abused: No Physically Abused: No Sexually Abused: No Housing Stability: Low Risk (06/15/2025) Received from [facility] Housing Stability Vital Sign Unable to Pay [...] test performed by another physician/other qualified health healthcare science specialist (not separately reported) Risk of Complications [...] documented as of this encounter Care Teams Transport Analyst Relationship Specialty Start Date End Date System, Provider Not In PCP - General 09/10/25 documented as of this encounter
--- OUTSIDE RECORDS SUMMARY | 2025-09-10 12:00 | XMS_ITS | Encounter Summary ---
Author Organization [facility] Address [address] [place] [id number] Care Team Providers Care Cotton Wringer Name Role Phone System, Provider Not In [...] release of HIV test results or diagnoses. [id number] Reason for Visit * Reason Comments Liver Transplant Evaluation Encounter Details Date Type Department Care Team (Late st Contact Info) Description 09/10/2025 1:00 PM EDT Office Visit [facility] Liver Transplant at [address] [phone] Buddy Zimmerman MD [address] [place] [id number] Pre-transplant evaluation for chronic liver disease [...] Hepatology Clinic Note Name: David Pop CSN: [id number] Chief Complaint: Liver Transplant Evaluation History of [...] get MELD labs today Buddy Zimmerman MD [employer] Medicine Division of Gastroenterology and Hepatology [1] [...] LDL Cholesterol 97 mg/dL 8:21 PM EDT [facility] Plasma 09/10/2025 5:03 PM EDT 09/10/2025 5:52 PM EDT Narrative [facility] - 09/10/2025 8:21 PM EDT Must the patient be fasting for this test?->No LDL cholesterol calculated using the Friedewald equation. us Buddy Zimmerman MD LAB BLOOD ORDERABLES Final Resul t Performing Organization Address City/[facility] Co de Phone Number [facility] [address] [facility]. [address] * ABO/Rh (09/10/2025 5:03 PM EDT) ABO Grouping A 09/10/2025 7:26 PM EDT [facility] Rh Type Positive 09/10/2025 7:26 PM EDT [facility] Blood 09/10/2025 5:03 PM EDT 09/10/2025 6:49 PM EDT us Buddy Zimmerman MD BLOOD BANK TEST ORDERABLES Final Result Performing Organization Address [facility]/[place] de Phone Number [facility] [address] [facility]. [address] * AFP tumor marker (09/10/2025 5:03 PM EDT) AFP-Tumor Marker 2.0 0.0 - 9.0 ng/mL 09/10/2025 8:52 PM EDT [facility] Serum 09/10/2025 5:03 PM EDT 09/10/2025 6:42 PM EDT Narrative [facility] - 09/10/2025 8:52 PM EDT The testing method for AFP is a chemiluminescent immunoassay manufactured by [employer] Concentrations of AFP obtained by different assay methods or kits may vary and cannot be used interchangeably. AFP results cannot be interpreted as absolute evidence of the presence or absence of malignant disease. us Buddy Zimmerman MD LAB BLOOD ORDERABLES Final Resul t [facility] [address] [place] [facility] * Hemoglobin A1c (09/10/2025 5:03 PM EDT) Pathologist [facility] Hemoglobin A1C 4.0 4.0 - 5.6 % 09/10/2025 11:22 PM EDT [facility] Comment: Hemoglobin A1c Interpretation Guidelines: Normal: [...] ORDERABLES Final Resul t Performing Organization Address [facility] Co de Phone Number [facility] [address] [facility] * TSH (Thyroid Stimulating Hormone) (09/10/2025 5:03 PM EDT) Pathologist [facility] TSH 2.85 0.45 - 4.12 uIU/mL 09/11/2025 12:13 AM EDT [facility] Serum 09/10/2025 5:03 PM EDT 09/10/2025 6:42 PM EDT us Buddy Zimmerman MD LAB BLOOD ORDERABLES Final Resul t Performing Organization Address [facility]/ZIP Co de Phone Number [facility] [address] [place] [facility] * (ABNORMAL) Protime-INR (09/10/2025 5:03 PM EDT) Pathologist [facility] Protime 24.2(H) 12.1 - 15.1 seconds 09/10/2025 7:00 PM EDT [facility] INR 2.0(H) 0.9 - 1.1 09/10/2025 7:00 PM EDT [facility] Comment: RECOMMENDED THERAPEUTIC RANGES USING INR : Stable oral anticoagulant therapy: 2.0 - 3.0 Mechanical prosthetic heart valve: 2.5 - 3.5 Recurrent acute myocardial infarction: 2.5 - 3.5 Plasma 09/10/2025 5:03 PM EDT 09/10/2025 6:42 PM EDT us Buddy Zimmerman MD LAB BLOOD ORDERABLES Final Resul t [facility] [address] * (ABNORMAL) Hepatic Function Panel (09/10/2025 5:03 PM EDT) Total Bilirubin 5.9(H) 0.0 - 1.5 mg/dL 09/10/2025 8:21 PM EDT [facility] Bilirubin, Direct 1.62(H) 0.00 - 0.40 mg/dL 09/10/2025 8:21 PM EDT [facility] AST 40(H) 13 - 39 U/L 09/10/2025 8:21 PM EDT [facility] ALT 29 7 - 52 U/L 09/10/2025 8:21 PM EDT [facility] Alkaline Phosphatase 136(H) 36 - 125 U/L 09/10/2025 8:21 PM EDT [facility] Total Protein 6.2(L) 6.4 - 8.9 g/dL 09/10/2025 8:21 PM EDT [facility] Albumin 2.1(L) 3.5 - 5.7 g/dL 09/10/2025 8:21 PM EDT [facility] Bilirubin, Indirect 4.28(H) 0.00 - 1.10 mg/dL 09/10/2025 8:21 PM EDT [facility] Plasma 09/10/2025 5:03 PM EDT 09/10/2025 5:52 PM EDT us Buddy Zimmerman MD LAB BLOOD ORDERABLES Final Resul t [facility] [address] [place] [address], [facility] * (ABNORMAL) Basic metabolic panel (09/10/2025 5:03 PM EDT) Sodium 142 133 - 146 mmol/L 09/10/2025 8:21 PM EDT [facility] Potassium 3.8 3.5 - 5.3 mmol/L 09/10/2025 8:21 PM EDT [facility] Chloride 110 98 - 110 mmol/L 09/10/2025 8:21 PM EDT [facility] CO2 27 21 - 33 mmol/L 09/10/2025 8:21 PM EDT [facility] Comment:High lactate dehydro genase concentrations in patient samples may cause falsely increased bicarbonate results. If markedly elevated LDH is observed or suspected, please assess results in conjunction with patient`s clinical presentation. In cases of discrepant results, consider evaluating CO2 in with a blood gas order. Anion Gap 5 3 - 16 mmol/L 09/10/2025 8:21 PM EDT [facility] BUN 10 7 - 25 mg/dL 09/10/2025 8:21 PM EDT [facility] Creatinine 0.90 0.60 - 1.30 mg/dL 09/10/2025 8:21 PM EDT [facility] Glucose 79 70 - 100 mg/dL 09/10/2025 8:21 PM EDT [facility] Calcium 7.9(L) 8.6 - 10.3 mg/dL 09/10/2025 8:21 PM EDT [facility] Osmolality, Calculated 292 278 - 305 mOsm/kg 09/10/2025 8:21 PM EDT [facility] EGFR >90 09/10/2025 8:21 PM EDT [facility] Comment: As of 2022, the estimated [...] MD LAB BLOOD ORDERABLES Final Resul t [facility] [address] * (ABNORMAL) CBC (09/10/2025 5:03 PM EDT) WBC 4.2 3.8 - 10.8 10E3/uL 09/10/2025 6:57 PM EDT [facility] RBC 3.39(L) 4.20 - 5.80 10E6/uL 09/10/2025 6:57 PM EDT [facility] Hemoglobin 11.4(L) 13.2 - 17.1 g/dL 09/10/2025 6:57 PM EDT [facility] Hematocrit 33.9(L) 38.5 - 50.0 % 09/10/2025 6:57 PM EDT [facility] MCV 100.1(H) 80.0 - 100.0 fL 09/10/2025 6:57 PM EDT [facility] MCH 33.7(H) 27.0 - 33.0 pg 09/10/2025 6:57 PM EDT [facility] MCHC 33.7 32.0 - 36.0 g/dL 09/10/2025 6:57 PM EDT [facility] RDW 18.5(H) 11.0 - 15.0 % 09/10/2025 6:57 PM EDT [facility] Platelets 66(L) 140 - 400 10E3/uL 09/10/2025 6:57 PM EDT [facility] MPV 7.8 7.5 - 11.5 fL 09/10/2025 6:57 PM EDT [facility] Whole Blood 09/10/2025 5:03 PM EDT 09/10/2025 6:33 PM EDT us Buddy Zimmerman MD LAB BLOOD ORDERABLES Final Resul t [facility] [address] * ECG 12-Lead (MUSE) (09/10/2025 12:14 PM EDT) 09/10/2025 12:1 4 PM EDT Narrative MUSE - 09/10/2025 3:28 PM EDT Ventricular Rate: 64 BPM Atrial Rate: 64 BPM P-R Interval: 190 ms QRS Duration: 84 ms QT: 464 ms QTc: 478 ms P [place]: 27 degrees R [place]wick: 58 degrees T [place]: 22 degrees Diagnosis Line: NORMAL SINUS RHYTHM ^ NORMAL ECG ^ No previous ECGs available ^ Confirmed by MD TIP, [facility] ([id number]) on 09/10/2025 3:28:36 PM us [...] documented as of this encounter Care Teams Cotton Wringer Relationship Specialty Start Date End Date System, Provider Not In PCP - General 09/10/25 documented as of this encounter
--- OUTSIDE RECORDS SUMMARY | 2025-09-10 12:30 | XMS_ITS | Encounter Summary ---
Author Organization [facility] Address [address] [place] [id number] Care Team Providers Care Advertising Layout Worker Name Role Phone System, Provider Not [...] release of HIV test results or diagnoses. [id number] Health Encounter Details Date Type Department Care Team (Late st Contact Info) Description 09/10/2025 1:30 PM EDT Office Visit [facility] Liver Transplant at [address] [address] [address] Troy MD [facility] [place] [address] Alcoholic cirrhosis of liver with [...] Strain: Low Risk (06/15/2025) Received from [facility] Overall Financial Resource Strain (CARDIA) How hard is it for you to pay for the very basics like food, housing, medical care, and heating?: Not hard at all Food Insecurity: No Food Insecurity (06/15/2025) Received from [facility] Hunger Vital Sign Worried About Running Out of Food in the Last Year: Never true Ran Out of Food in the Last Year: Never true Transportation Needs: No Transportation Needs (06/15/2025) Received from [facility] PRAPARE - Transportation In the past 12 months, has lack of transportation kept you from medical appointments or from getting medications?: No In the past 12 months, has lack of transportation kept you from meetings, work, or from getting things needed for daily living?: No Physical Activity: Inactive (06/15/2025) Received from [facility] Exercise Vital Sign Days of Exercise per Week: 0 days Minutes of Exercise per Session: 0 min Stress: No Stress Concern Present (06/15/2025) Received from [facility] [place] of Occupational Health - Occupational Stress Questionnaire Do you feel stress - tense, restless, nervous, or anxious, or unable to sleep at night because yourmind is troubled all the time - these days?: Only a little Social Connections: Socially Integrated (06/15/2025) Received from [facility] Social Connection and Isolation Panel [NHANES] Frequency of Communication with Friends and Family: More than three times a week Frequency of Social Gatherings with Friends and Family: More than three times a week Attends Uatsdin Services: More than 4 times per year Active Member of Clubs or Organizations: Yes Attends Club or Organization Meetings: Not on file Marital Status: Intimate Partner Violence: Not At Risk (06/15/2025) Received from [facility] Humiliation, Afraid, Rape, and Kick questionnaire Fear of Current or Ex-Partner: No Emotionally Abused: No Physically Abused: No Sexually Abused: No Housing Stability: Low Risk (06/15/2025) Received from [facility] Housing Stability Vital Sign Unable [...] further review Use and allocation of SCD, ANESTHESIA DIRECTOR, DCD and LDLT allografts discussed in detail. [...] in a facility that is approved by [facility] as meeting institutional coverage criteria for liver [...] from surgery (5%). I also explained the [facility] risks of transplantation and immunosuppression including viral infection and cancer both solid organand lymphoma. --- Lane Troy MD Transplant Hematology Supervisorsweet dough mixer Section of Transplantation [facility] [1] Allergies Allergen Reactions Lisinopril Other [...] documented as of this encounter Care Teams Advertising Layout Worker Relationship Specialty Start Date End Date System, Provider Not In PCP - General 09/10/25 documented as of this encounter
--- OUTSIDE RECORDS SUMMARY | 2025-09-10 13:00 | XMS_ITS | Encounter Summary ---
Author Organization [facility] Address [address] [place] [id number] Care Team Providers Care Brush Filler Hand Name Role Phone System, Provider Not [...] release of HIV test results or diagnoses. [id number] Reason for Visit * Reason Comments ID Consult Visit (Follow Up) Liver Transplant Pre-evaluation Encounter Details Date Type Department Care Team (Late st Contact Info) Description 09/10/2025 2:00 PM EDT Office Visit [facility] Liver Transplant at [address] [phone] Unknown, Attending Provider Navi Sims MD [address] [place] [phone] Pre-transplant evaluation for chronic liver disease [...] Disease Pre-Transplant Consultation Patient: David Pop CSN: [id number] Chief Complaint Pre-transplant evaluation, infectious History of Present Illness Dvaid Pop is a 65 y.o. 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 Childhood immunizations and illnesses: got all childhood vaccines, still has tonsils, no PE tubes. Unsure if had measles, mumps. Unsure if had VZV. Places of habitation and travel: Born in [place], no SW travel. International to [employer] for work, worked for [employer], making [employer]. Lives with , 3 cats, does the cat litter box. No other pets. Hobbies: fish. Discussed hot tub avoidance. No known TB exposure, no homeless, no fpc, no ivdu, no healthcare work. Current vaccinations: [...] Resource Strain: Low Risk (06/15/2025) Received from [facility] Overall Financial Resource Strain (CARDIA) How hard is it for you to pay for the very basics like food, housing, medical care, and heating?: Not hard at all Food Insecurity: No Food Insecurity (06/15/2025) Received from [facility] Hunger Vital Sign Worried About Running Out of Food in the Last Year: Never true Ran Out of Food in the Last Year: Never true Transportation Needs: No Transportation Needs (06/15/2025) Received from [facility] PRAPARE - Transportation In the past 12 months, has lack of transportation kept you from medical appointments or from getting medications?: No In the past 12 months, has lack of transportation kept you from meetings, work, or from getting things needed for daily living?: No Physical Activity: Inactive (06/15/2025) Received from [facility] Exercise Vital Sign Days of Exercise per Week: 0 days Minutes of Exercise per Session: 0 min Stress: No Stress Concern Present (06/15/2025) Received from [facility] - Occupational Stress Questionnaire Do you feel stress - tense, restless, nervous, or anxious, or unable to sleep at night because yourmind is troubled all the time - these days?: Only a little Social Connections: Socially Integrated (06/15/2025) Received from [facility] Social Connection and Isolation Panel [NHANES] Frequency of Communication with Friends and Family: More than three times a week Frequency of Social Gatherings with Friends and Family: More than three times a week Attends Faith Services: More than 4 times per year Active Member of Clubs or Organizations: Yes Attends Club or Organization Meetings: Not on file Marital Status: Intimate Partner Violence: Not At Risk (06/15/2025) Received from [facility] Humiliation, Afraid, Rape, and Kick questionnaire Fear of Current or Ex-Partner: No Emotionally Abused: No Physically Abused: No Sexually Abused: No Housing Stability: Low Risk (06/15/2025) Received from [facility] Housing Stability Vital Sign Unable to [...] antibody, IgG (09/10/2025 5:03 PM EDT) Pathologist [facility] Varicella IgG Positive( A) Negative S/CO 09/10/2025 11:49 PM EDT [facility] Comment:Result indicates the presence of detectable VZV IgG antibodies. A positive result is generally indicative of exposure to the pathogen or administration of specific immunoglobulins, but it is no indication of active infection or stage of disease. This test is not approved for determining vaccine-induced immunity to varicella zoster virus. VZV NUM 15.50(H) 0.00 - 0.99 S/CO 09/10/2025 11:49 PM EDT [facility] Serum 09/10/2025 5:03 PM EDT 09/10/2025 10:26 PM EDT Navi Sims MD LAB BLOOD ORDERABLES Final Resu lt Performing Organization Address [facility] Co de Phone Number [facility] [address] * QuantiFERON TB2 Ag (09/10/2025 5:03 PM EDT) Pathologist [facility] QuantiFERON TB2 Ag Value 0.09 09/12/2025 1:19 PM EDT [facility] Plasma 09/10/2025 5:03 PM EDT 09/10/2025 6:29 PM EDT Navi Sims MD LAB BLOOD ORDERABLES Final Resu lt Performing Organization Address City/[facility]/ZIP Co de Phone Number [facility] [address] * QuantiFERON TB1 Ag (09/10/2025 5:03 PM EDT) QuantiFERON TB1 Ag Value 0.08 09/12/2025 1:19 PM EDT [facility] Plasma 09/10/2025 5:03 PM EDT 09/10/2025 6:29 PM EDT Navi Sims MD LAB BLOOD ORDERABLES Final Resu lt [facility] [address] [facility]. [address] * QuantiFERON Nil (09/10/2025 5:03 PM EDT) Pathologist [facility] QuantiFERON Nil 0.02 1:19 PM EDT [facility] Plasma 09/10/2025 5:03 PM EDT 09/10/2025 6:29 PM EDT Navi Sims MD LAB BLOOD ORDERABLES Final Resu lt Performing Organization Address City/[facility]/ZIP Co de Phone Number [facility] [address] [facility]. [address] * QuantiFERON Mitogen (09/10/2025 5:03 PM EDT) Pathologist [facility] QuantiFERON Interpretation Negative Negative 09/12/2025 1:19 PM EDT [facility] Comment:Negative result pilar cates M. tuberculosis infection is NOT likely. Negative results do not preclude tuberculosis infection (especially in immunosuppressed patients). Negative results have a TB antigen minus Nil value less than 0.35 IU/mL. In cases with high suspicion of disease, retesting or additional testing with medical evaluation may be useful. QuantiFERON Mitogen 8.77 09/12 1:19 PM EDT [facility] Plasma 09/10/2025 5:03 PM EDT 09/10/2025 6:29 PM EDT Narrative [facility] - 09/12/2025 1:19 PM EDT The [...] ORDERABLES Final Resu lt Performing Organization Address City/[facility]/ZIP Co de Phone Number [facility] [address] [facility]. [address] * (ABNORMAL) Strongyloides Ab (09/10/2025 5:03 PM EDT) Pathologist [facility] Strongyloides Ab Positive( A) Negative 09/17/2025 2:56 PM EST [facility] Serum 09/10/2025 5:03 PM EDT 09/17/2025 3:07 PM EST Narrative [facility] - 09/17/2025 3:07 PM EST PERFORMED AT: [address] [id number] FORMING ACID DUMPER: Kevin Holguin MD PHONE: [phone] Navi Sims MD LAB BLOOD ORDERABLES Final Resu lt Performing Organization Address City/[facility] Co de Phone Number [facility] [address] [facility]. [address] * Toxoplasma gondii antibody, IgG (09/10/2025 5:03 PM EDT) Pathologist [facility] Toxoplasma Gondii IgG <3.0 0.0 - 7.1 IU/mL 09/12/2025 6:21 AM EDT [facility] Comment: Negative <7.2 Equivocal 7.2 - 8.7 Positive >8.7 Serum 09/10/2025 5:03 PM EDT 09/12/2025 7:06 AM EDT Narrative [facility] - 09/12/2025 7:06 AM EDT PERFORMED AT: [facility] [address] [id number] FORMING ACID DUMPER: Mateo Miller, PhD PHONE: [phone] Navi Sims MD LAB BLOOD ORDERABLES Final Resu lt [facility]. [address] * Syphilis Screening (Trepia) (09/10/2025 5:03 PM EDT) Treponema Pallidum Negative Negative 09/10/2025 11:55 PM EDT [facility] Comment: No serological evidence of infection with Treponema pallidum (incubating or early primary syphilis cannot be excluded). Serum 09/10/2025 5:03 PM EDT 09/10/2025 10:26 PM EDT Navi Sims MD LAB BLOOD ORDERABLES Final Resu lt [facility] [address] [facility]. [address] * (ABNORMAL) MMR(IgG) Panel (Measles, Mumps, Rubella) (09/10/2025 5:03 PM EDT) Mumps IgG Positive 09/10/2025 11:51 PM EDT [facility] MUMPS IGG NUM >300.00(H) 0.0 - 8.9 U/mL 09/10/2025 11:51 PM EDT [facility] Rubella IgG Scr Positive 09/10/2025 11:51 PM EDT [facility] RUB NUM 30.20(H) 0.0 - 0.8 INDEX 09/10/2025 11:51 PM EDT [facility] Rubeola Ab, IgG Positive 09/10/2025 11:50 PM EDT [facility] RUB IGG NUM >300.00(H) 0.00 - 13.40 U/mL 09/10/2025 11:50 PM EDT [facility] Serum 09/10/2025 5:03 PM EDT 09/10/2025 10:26 PM EDT Narrative [facility] - 09/10/2025 11:51 PM EDT Presence [...] MD LAB BLOOD ORDERABLES Final Resu lt [facility] [address] [place] [address], [place] documented in this encounter Visit Diagnoses Diagnosis [...] as of this encounter Care Teams Brush Filler Hand Relationship Specialty Start Date End Date System, Provider Not In PCP - General 09/10/25 documented as of this encounter
--- OUTSIDE RECORDS SUMMARY | 2025-09-10 15:35 | XMS_ITS | Encounter Summary ---
Author Organization [facility] Address [address] [place] [id number] Care Team Providers Care Accountant Auditor Name Role Phone System, Provider Not [...] release of HIV test results or diagnoses. [id number] Reason for Visit * Auth/Cert (Routine) Specialty Diagnoses / Procedures Referred By Gianna reyes Referred To Contact Radiology [facility] [address] [place] [address] Phone: tel: Referral ID Status Reason Start Date Expiration Date Visits Re quested Visits Authorized [id number] 1 1 Encounter Details Date Type Department Care Team (Late st Contact Info) Description 09/10/2025 4:[address] [facility] [address] [place] [phone] Buddy Zimmerman MD [address] [place] [address] Alcoholic cirrhosis of liver with [...] - 0.99 S/CO 09/10/2025 11:49 PM EDT [facility] Serum 09/10/2025 5:03 PM EDT 09/10/2025 10:26 PM EDT Navi Sims MD LAB BLOOD ORDERABLES Final Resu lt [facility] [address] [place] [address]. [address] * QuantiFERON TB2 Ag (09/10/2025 5:03 PM EDT) QuantiFERON TB2 Ag Value 0.09 09/12/2025 1:19 PM EDT [facility] Plasma 09/10/2025 5:03 PM EDT 09/10/2025 6:29 PM EDT Navi Sims MD LAB BLOOD ORDERABLES Final Resu lt [facility] [address] [facility]. [address] * QuantiFERON TB1 Ag (09/10/2025 5:03 PM EDT) QuantiFERON TB1 Ag Value 0.08 09/12/2025 1:19 PM EDT [facility] Plasma 09/10/2025 5:03 PM EDT 09/10/2025 6:29 PM EDT Navi Sims MD LAB BLOOD ORDERABLES Final Resu lt [facility] [address] [place] [address]. [address] * QuantiFERON Nil (09/10/2025 5:03 PM EDT) QuantiFERON Nil 0.02 1:19 PM EDT [facility] Plasma 09/10/2025 5:03 PM EDT 09/10/2025 6:29 PM EDT Navi Sims MD LAB BLOOD ORDERABLES Final Resu lt Performing Organization Address [facility]/ZIP Co de Phone Number [facility] [address] [facility]. [address] * QuantiFERON Mitogen (09/10/2025 5:03 PM EDT) Pathologist [facility] QuantiFERON Interpretation Negative Negative 09/12/2025 1:19 PM EDT [facility] Comment:Negative result pilar cates M. tuberculosis infection is NOT likely. Negative results do not preclude tuberculosis infection (especially in immunosuppressed patients). Negative results have a TB antigen minus Nil value less than 0.35 IU/mL. In cases with high suspicion of disease, retesting or additional testing with medical evaluation may be useful. QuantiFERON Mitogen 8.77 09/12 1:19 PM EDT [facility] Plasma 09/10/2025 5:03 PM EDT 09/10/2025 6:29 PM EDT Narrative [facility] - 09/12/2025 1:19 PM EDT [...] MD LAB BLOOD ORDERABLES Final Resu lt [facility] [address] [facility] [place] [address], [facility] * (ABNORMAL) Strongyloides Ab (09/10/2025 5:03 PM EDT) Pathologist [facility] Strongyloides Ab Positive( A) Negative 09/17/2025 2:56 PM EST [facility] Serum 09/10/2025 5:03 PM EDT 09/17/2025 3:07 PM EST Narrative [facility] - 09/17/2025 3:07 PM EST PERFORMED AT: [facility] [address] [id number] SODA TESTER: Kevin Holguin MD PHONE: [phone] Navi Sims MD LAB BLOOD ORDERABLES Final Resu lt Performing Organization Address [facility] Co de Phone Number [facility] [address] [facility]. [address] * Toxoplasma gondii antibody, IgG (09/10/2025 5:03 PM EDT) Toxoplasma Gondii IgG <3.0 0.0 - 7.1 IU/mL 09/12/2025 6:21 AM EDT [facility] Comment: Negative <7.2 Equivocal 7.2 - 8.7 Positive >8.7 Serum 09/10/2025 5:03 PM EDT 09/12/2025 7:06 AM EDT Narrative [facility] - 09/12/2025 7:06 AM EDT PERFORMED AT: [facility] [address] [id number] SODA TESTER: Mateo Miller, PhD PHONE: [phone] Navi Sims MD LAB BLOOD ORDERABLES Final Resu lt Performing Organization Address City/[facility]/ZIP Co de Phone Number [facility] [address] [facility]. [address] * Syphilis Screening (Trepia) (09/10/2025 5:03 PM EDT) Treponema Pallidum Negative Negative 09/10/2025 11:55 PM EDT [facility] Comment: No serological evidence of infection with Treponema pallidum (incubating or early primary syphilis cannot be excluded). Serum 09/10/2025 5:03 PM EDT 09/10/2025 10:26 PM EDT Navi Sims MD LAB BLOOD ORDERABLES Final Resu lt [facility] [address] [facility]. [address] * (ABNORMAL) MMR(IgG) Panel (Measles, Mumps, Rubella) (09/10/2025 5:03 PM EDT) Mumps IgG Positive 09/10/2025 11:51 PM EDT [facility] MUMPS IGG NUM >300.00(H) 0.0 - 8.9 U/mL 09/10/2025 11:51 PM EDT [facility] Rubella IgG Scr Positive 09/10/2025 11:51 PM EDT [facility] RUB NUM 30.20(H) 0.0 - 0.8 INDEX 09/10/2025 11:51 PM EDT [facility] Rubeola Ab, IgG Positive 09/10/2025 11:50 PM EDT [facility] RUB IGG NUM >300.00(H) 0.00 - 13.40 U/mL 09/10/2025 11:50 PM EDT [facility] Serum 09/10/2025 5:03 PM EDT 09/10/2025 10:26 PM EDT Narrative [facility] - 09/10/2025 11:51 PM EDT [...] MD LAB BLOOD ORDERABLES Final Resu lt [facility] [address] [facility]. [address] * (ABNORMAL) Lipid Profile (09/10/2025 5:03 [...] - 149 mg/dL 09/10/2025 8:21 PM EDT [facility] HDL 26(L) 60 - 92 mg/dL 09/10/2025 8:21 PM EDT [facility] Comment: LIPID PROFILE INTERPRETATION CHOLESTEROL,TOTAL(mg/dL) [...] LDL Cholesterol 97 mg/dL 8:21 PM EDT [facility] Plasma 09/10/2025 5:03 PM EDT 09/10/2025 5:52 PM EDT Narrative [facility] - 09/10/2025 8:21 PM EDT Must the patient be fasting for this test?->No LDL cholesterol calculated using the Friedewald equation. us Buddy Zimmerman MD LAB BLOOD ORDERABLES Final Resul t [facility] [address] * ABO/Rh (09/10/2025 5:03 PM EDT) ABO Grouping A 09/10/2025 7:26 PM EDT [facility] Rh Type Positive 09/10/2025 7:26 PM EDT [facility] Blood 09/10/2025 5:03 PM EDT 09/10/2025 6:49 PM EDT Buddy Zimmerman MD BLOOD BANK TEST ORDERABLES Final Result [facility] [address] * AFP tumor marker (09/10/2025 5:03 PM EDT) Pathologist [facility] AFP-Tumor Marker 2.0 0.0 - 9.0 ng/mL 09/10/2025 8:52 PM EDT [facility] Serum 09/10/2025 5:03 PM EDT 09/10/2025 6:42 PM EDT Narrative [facility] - 09/10/2025 8:52 PM EDT The testing method for AFP is a chemiluminescent immunoassay manufactured by [employer] Concentrations of AFP obtained by different assay methods or kits may vary and cannot be used interchangeably. AFP results cannot be interpreted as absolute evidence of the presence or absence of malignant disease. Buddy Zimmerman MD LAB BLOOD ORDERABLES Final Resul t Performing Organization Address City/[facility] Co de Phone Number [facility] [address] * Hemoglobin A1c (09/10/2025 5:03 PM EDT) Pathologist [facility] Hemoglobin A1C 4.0 4.0 - 5.6 % 09/10/2025 11:22 PM EDT [facility] Comment: Hemoglobin A1c Interpretation Guidelines: [...] ORDERABLES Final Resul t Performing Organization Address City/[facility] Co de Phone Number [facility] [address] [facility]. [address] * TSH (Thyroid Stimulating Hormone) (09/10/2025 5:03 PM EDT) TSH 2.85 0.45 - 4.12 uIU/mL 09/11/2025 12:13 AM EDT [facility] Serum 09/10/2025 5:03 PM EDT 09/10/2025 6:42 PM EDT us Buddy Zimmerman MD LAB BLOOD ORDERABLES Final Resul t Performing Organization Address [facility] Co de Phone Number [facility] [address] [facility]. [address] * (ABNORMAL) Protime-INR (09/10/2025 5:03 PM EDT) Protime 24.2(H) 12.1 - 15.1 seconds 09/10/2025 7:00 PM EDT [facility] INR 2.0(H) 0.9 - 1.1 09/10/2025 7:00 PM EDT [facility] Comment: RECOMMENDED THERAPEUTIC RANGES USING INR : Stable oral anticoagulant therapy: 2.0 - 3.0 Mechanical prosthetic heart valve: 2.5 - 3.5 Recurrent acute myocardial infarction: 2.5 - 3.5 Plasma 09/10/2025 5:03 PM EDT 09/10/2025 6:42 PM EDT Result Neto Zimmerman MD LAB BLOOD ORDERABLES Final Resul t Performing Organization Address [facility] Co de Phone Number [facility] [address] [facility] * (ABNORMAL) Hepatic Function Panel (09/10/2025 5:03 PM EDT) Total Bilirubin 5.9(H) 0.0 - 1.5 mg/dL 09/10/2025 8:21 PM EDT [facility] Bilirubin, Direct 1.62(H) 0.00 - 0.40 mg/dL 09/10/2025 8:21 PM EDT [facility] AST 40(H) 13 - 39 U/L 09/10/2025 8:21 PM EDT [facility] ALT 29 7 - 52 U/L 09/10/2025 8:21 PM EDT [facility] Alkaline Phosphatase 136(H) 36 - 125 U/L 09/10/2025 8:21 PM EDT [facility] Total Protein 6.2(L) 6.4 - 8.9 g/dL 09/10/2025 8:21 PM EDT [facility] Albumin 2.1(L) 3.5 - 5.7 g/dL 09/10/2025 8:21 PM EDT [facility] Bilirubin, Indirect 4.28(H) 0.00 - 1.10 mg/dL 09/10/2025 8:21 PM EDT [facility] Plasma 09/10/2025 5:03 PM EDT 09/10/2025 5:52 PM EDT us Buddy Zimmerman MD LAB BLOOD ORDERABLES Final Resul t [facility] [address] * (ABNORMAL) Basic metabolic panel (09/10/2025 5:03 PM EDT) Sodium 142 133 - 146 mmol/L 09/10/2025 8:21 PM EDT [facility] Potassium 3.8 3.5 - 5.3 mmol/L 09/10/2025 8:21 PM EDT [facility] Chloride 110 98 - 110 mmol/L 09/10/2025 8:21 PM EDT [facility] CO2 27 21 - 33 mmol/L 09/10/2025 8:21 PM EDT [facility] Comment:High lactate dehydro genase concentrations in patient samples may cause falsely increased bicarbonate results. If markedly elevated LDH is observed or suspected, please assess results in conjunction with patient`s clinical presentation. In cases of discrepant results, consider evaluating CO2 in with a blood gas order. Anion Gap 5 3 - 16 mmol/L 09/10/2025 8:21 PM EDT [facility] BUN 10 7 - 25 mg/dL 09/10/2025 8:21 PM EDT [facility] Creatinine 0.90 0.60 - 1.30 mg/dL 09/10/2025 8:21 PM EDT [facility] Glucose 79 70 - 100 mg/dL 09/10/2025 8:21 PM EDT [facility] Calcium 7.9(L) 8.6 - 10.3 mg/dL 09/10/2025 8:21 PM EDT [facility] Osmolality, Calculated 292 278 - 305 mOsm/kg 09/10/2025 8:21 PM EDT [facility] EGFR >90 09/10/2025 8:21 PM EDT [facility] Comment: As of 2022, the [...] MD LAB BLOOD ORDERABLES Final Resul t [facility] [address] * (ABNORMAL) CBC (09/10/2025 5:03 PM EDT) WBC 4.2 3.8 - 10.8 10E3/uL 09/10/2025 6:57 PM EDT [facility] RBC 3.39(L) 4.20 - 5.80 10E6/uL 09/10/2025 6:57 PM EDT [facility] Hemoglobin 11.4(L) 13.2 - 17.1 g/dL 09/10/2025 6:57 PM EDT [facility] Hematocrit 33.9(L) 38.5 - 50.0 % 09/10/2025 6:57 PM EDT [facility] MCV 100.1(H) 80.0 - 100.0 fL 09/10/2025 6:57 PM EDT [facility] MCH 33.7(H) 27.0 - 33.0 pg 09/10/2025 6:57 PM EDT [facility] MCHC 33.7 32.0 - 36.0 g/dL 09/10/2025 6:57 PM EDT [facility] RDW 18.5(H) 11.0 - 15.0 % 09/10/2025 6:57 PM EDT [facility] Platelets 66(L) 140 - 400 10E3/uL 09/10/2025 6:57 PM EDT [facility] MPV 7.8 7.5 - 11.5 fL 09/10/2025 6:57 PM EDT [facility] Whole Blood 09/10/2025 5:03 PM EDT 09/10/2025 6:33 PM EDT us Buddy Zimmerman MD LAB BLOOD ORDERABLES Final Resul t [facility] [address] [facility]. [address] documented in this encounter Visit Diagnoses Diagnosis Alcoholic cirrhosis of liver with ascites (CMS-HCC) Pre-transplant evaluation for chronic liver disease documented in this encounter Additional Health Concerns Assessment Noted Time PHQ-9 Depression Total Score: 8 09/10/20 25 11:09 AM EDT documented as of this encounter Care Teams Accountant Auditor Relationship Specialty Start Date End Date System, Provider Not In PCP - General 09/10/25 documented as of this encounter
--- OUTSIDE RECORDS SUMMARY | 2025-09-12 07:47 | XMS_ITS | Encounter Summary ---
Author Organization Healthcare Address [address] [place] [address] Care Team Providers Care Industrial Paramedic Name Role Phone Ruma Hernández REAL ESTATE AGENT/BROKER Unavailable [phone] Chris Medel MD Primary Care Provider [phone] Reason for Referral * Imaging (Routine) - Closed Specialty Diagnoses / Procedures Referred By Gianna reyes Referred To Contact Radiology Diagnoses Pre-liver transplant, listed Procedures MR Abdomen w and wo IV Contrast Portia Maguire MD [address] [address] Phone: tel: fax: Referral ID Status Reason Start Date Expiration Date Visits Re quested Visits Authorized [id number] Closed 09/05/2025 03/07/2027 1 1 Reason for Visit * Imaging (Routine) - Closed Specialty Diagnoses / Procedures Referred By Gianna reyes Referred To Contact Radiology Diagnoses Pre-liver transplant, listed Procedures MR Abdomen w and wo IV Contrast Portia Maguire MD [address] [address] Phone: tel: fax: Referral ID Status Reason Start Date Expiration Date Visits Re quested Visits Authorized [id number] Closed 09/05/2025 03/07/2027 1 1 Encounter Details Date Type Department Care Team (Latest Contact Info) Description 09/12/2025 8:47 AM EDT - 09/12/2025 11:59 PM EDT Hospital Encounter [facility] Radiology [address], [address] [place] [address] Pre-liver transplant, listed Discharge Disposition: [...] any clubs o r organizations such as druze groups, unions, fraternal or athletic groups, or [...] often do you attend [facility] or alevism services? More than 4 times per year 06/15/2025 Do you belong to any clubs o r organizations such as druze groups, unions, fraternal or athletic groups, or [...] 06/15/2025 [facility] of Occupat ional Health - Occupational [...] drink first t luisa in the morning (EYE-DIRECTOR BIOINFORMATICS) to steady your nerves or to get [...] at all 09/12/2025 8:14 AM EDT Audie Atknison Patient Health Questionnaire -2 Score 0 09/12/2025 [...] 11 09/13/2024 ergocalciferol (Vitamin D-2) 1.25 MG (08313 UT) capsule Take 1 capsule by mouth [...] must be assessed by a doctor. Call [phone] if you are alone and your reaction is more than mild sneezing or itching. If you have a mild reaction, call to speak with a Radiologist, explain that you havehad a contrast reaction, as this needs to be added to your medical record. documented in this encounter Plan of Treatment Upcoming Encounters Date Type Department Care Team (Late st Contact Info) Description 10/18/2025 4:20 PM EST Office Visit [facility] [employer] [place] [facility] [address] [facility], [address] [place] [address] Moustapha Katz MD [address] [facility] [address] [place] [address] 11/27/2025 3:45 PM EST Office Visit Medical Office Building Urology [address] [facility], [address] [place] [address] Suhail Brock MD [address] [facility] [address] [place] [address] 12/12/2025 8:30 AM EST Clinical Support [facility] [place] [address] [facility] [address] [place] [address] 12/12/2025 10:00 AM EST Office Visit [facility] [place] [address] [facility] [address] [place] [address] Portia Maguire MD [address] [facility] [address] [place] [address] documented as of this encounter [...] are consistent with and integrated into the [place] Association for the Study of Liver Diseases [...] using the following sequences: coronal single shot [id number] fast spin echo, axial T2 weighted sequences [...] are consistent with and integrated into the [place] Associationfor the Study of Liver Diseases (AASLD) [...] dose, Starting on Wed09/12/25 at 0902, Until 09/12/25 at 0930, Routine, Imaging Protocol Orders Given [...] as of this encounter Care Teams Industrial Paramedic Relationship Specialty [place] [address] PCP - General 03/14/25 Ruma Hernández APRN [address] [address] Referring Physician Gastroenterology 07/30/23 documented as of this encounter
--- OUTSIDE RECORDS SUMMARY | 2025-09-12 09:00 | XMS_ITS | Encounter Summary ---
Author Organization Healthcare Address [address] [place] [address] Care Team Providers Care Police Detective Name Role Phone Ruma Hernández DETAIL MAKER AND FITTER Unavailable [phone] Chris Medel MD Primary Care Provider [phone] Encounter Details Date Type Department Care Team (Latest Contact Info) Description 09/12/2025 10:00 AM EDT Office Visit [facility] [address] [facility] [address] [place] [address] Portia Maguire MD [address] [place] [address] Pre-liver transplant, listed (Primary Dx); [...] you attend [facility] or mandaen services? More than 4 times per year 02/19/2025 Do you belong to any clubs o r organizations such as buddhism groups, [employer], [employer] or athlePalmetto Veterinary Associates groups, or school groups? Yes 02/19/2025 How [...] you attend [facility] or mandaen services? More than 4 times per year 06/15/2025 Do you belong to any clubs o r organizations such as buddhism groups, [employer], [employer] or athlePalmetto Veterinary Associates groups, or school groups? Yes 06/15/2025 Attends [...] and heating? Not hard at all 06/15/2025 [facility] [place] of Occupat ional Health - Occupational Stress [...] any time in the past 12 m [facility], were you homeless or living [...] drink first t luisa in the morning (EYE-COMMISSIONS SPECIALIST) to steady your nerves or to get rid of a hangover? 0 06/14/2025 CAGE Questionnaire Score 0 025 Utilities Answer Date Recorded In the past 12 months has th [employer], gas, oil, or water company threatened to [...] 10/18/2025 4:20 PM EST Office Visit [facility] [place] [facility] [address], [address] [place] [address] Moustapha Katz MD [address] [place] [address] 11/27/2025 3:45 PM EST Office Visit Medical Office Building Urology [address], [address] [place] [address] Suhail Brock MD [address] [place] [address] 12/12/2025 8:30 AM EST Clinical Support [facility] Transplant [place] [address] [place] [address] 12/12/2025 10:00 AM EST Office [facility] [place] [address] [facility] [address] [place] [address] Portia Maguire MD [address] [facility] [address] [place] [address] documented as of this encounter [...] as of this encounter Care Teams Police Detective Relationship Specialty [place] [address] PCP - General 03/14/25 Ruma Hernández APRN [address] [facility] [address] [place] [address] Referring Physician Gastroenterology 07/30/23 documented as of this encounter
--- OUTSIDE RECORDS SUMMARY | 2025-09-24 13:00 | XMS_ITS | Encounter Summary ---
Author Organization [facility] Address [address] [place] [address] Care Team Providers Care Lead Technologist In Cytogenetics Name Role Phone System, Provider Not In [...] release of HIV test results or diagnoses. [id number] Reason for Visit * Reason Comments Liver Transplant Evaluation Encounter Details Date Type Department Care Team (Late st Contact Info) Description 09/24/2025 1:00 PM EST Office Visit [facility] Liver Transplant at [address] [phone] Nigel Reaves MD [address] [place] [phone] Esophageal varices without bleeding, unspecified esophageal [...] 12:32 PM EST documented in this encounter Patient Instructions * [...] center. He also has dual listing at [facility]. Liver disease diagnosed in 2022 based [...] 2:11 PM EST) Culture Result No Growth [facility] Midstream Urine URINE SPECIMEN / Unknown 09/24/2025 2:11 PM EST 09/24/2025 3:25 PM EST us Nigel Reaves MD MICROBIOLOGY - GENERAL ORDERABLE S Final Result [facility] [address] [place] [address], [facility] * (ABNORMAL) Urinalysis w/Rfl to Microscopic (09/24/2025 2:11 PM EST) Color, UA Yellow Yellow,Straw 09/24/2025 3:25 PM EST [facility] Clarity, UA Cloudy(A) Clear 09/24/2025 3:25 PM EST [facility] Specific [place], UA 1.019 1.005 - 1.035 09/24/2025 3:25 PM EST [facility] pH, UA 6.0 5.0 - 8.0 09/24/2025 3:25 PM EST [facility] Protein, UA 30(A) Negative mg/dL 09/24/2025 3:25 PM EST [facility] Glucose, UA Negative Negative mg/dL 09/24/2025 3:25 PM EST [facility] Ketones, UA Negative Negative mg/dL 09/24/2025 3:25 PM EST [facility] Bilirubin, UA Negative Negative 09/24/2025 3:25 PM EST [facility] Blood, UA Large(A) Negative 09/24/2025 3:25 PM EST [facility] Nitrite, UA Negative Negative 09/24/2025 3:25 PM [facility] Urobilinogen, UA <2.0 0.2 - 1.9 mg/dL 09/24/2025 3:25 PM EST [facility] Leukocyte Esterase, UA Large(A) Negative 09/24/2025 3:25 PM [facility] RBC, UA 61(H) 0 - 3 /HPF 09/24/2025 3:25 PM EST [facility] WBC, UA >100(H) 0 - 5 /HPF 09/24/2025 3:25 PM EST [facility] Squam Epithel, UA 1 0 - 5 /HPF 09/24/2025 3:25 PM EST [facility] Bacteria, UA Rare(A) None Seen /HPF 09/24/2025 3:25 PM EST [facility] Mucus, UA Present(A) None Seen /HPF 09/24/2025 3:25 PM EST [facility] Urine 09/24/2025 2:11 PM EST 09/24/2025 2:51 PM EST Nigel Reaves MD URINE ORDERABLES Final Result [facility] [address] [place] [address], [facility] documented in this encounter Visit Diagnoses [...] as of this encounter Care Teams Lead Technologist In Cytogenetics Relationship Specialty Start Date End Date System, Provider Not In PCP - General 09/10/25 documented as of this encounter
--- OUTSIDE RECORDS SUMMARY | 2025-10-08 07:15 | XMS_ITS | Clinical Summary ---
Author Organization [facility] Address [address] [place] [id number] Care Team Providers Care Key Punch Operator Name Role Phone System, Provider Not [...] therelease of HIV test results or diagnoses. [id number] Allergies Active Allergy Reactions Criticality Noted [...] Once daily Wednesday through Wednesday 5 Active carvediloL (COREG) 3.125 MG tablet Take 1 tablet (3.125 mg total) by mouth 2 times a day. 3 09/13/20 25 ivermectin (STROMECTOL) 3 mg Tab Take 7 tablets (21 mg total) by mouth daily for 2 doses. 14 tablet 5 09/17/20 25 Discontinue d(Refill / Reorder) ivermectin (STROMECTOL) 3 mg Tab Take 7 tablets (21 mg total) by mouth daily for 2 doses. 14 tablet 09/19/2025 10:08 AM EST 5 09/21/20 25 Active Problems Problem Noted Date Diagnosed Date [...] Encounters Date Type Department Care Team Description 10/03/2025 Telephone [facility] Liver Transplant at [facility] [address] [place] [address] Pb Sy, RN 10/03/2025 Chart Note [facility] Kidney Transplant at [facility] [address] [place] [address] Ailin Wells Organ: Liver 10/03/2025 Hospital Encounter [facility] [address] [place] [address] Vani Drew MD 10/03/2025 Telephone [facility] Liver Transplant at [address] [address] Pb Sy, RN Appointment 09/25/2025 Telephone [facility] Liver Transplant at [address] [address] Chapito Alcantar, SILVIO 09/25/2025 Chart Note [facility] Liver Transplant at [address] [address] Chapito Alcantar, SILVIO UNOS VERIFICATION CHECK FORM 09/25/2025 Chart Note [facility] Kidney Transplant at [address] [address] Ailin Wells Authorization for listing 09/24/2025 1:00 PM EST Office Visit [facility] Liver Transplant at [address] [address] Nigel Reaves MD Esophageal varices without bleeding, unspecified esophageal varices type (CMS-HCC) (Primary Dx); Alcoholic cirrhosis of liver with ascites (CMS-HCC); Hepatic encephalopathy (CMS-HCC); Pre-transplant evaluation for chronic liver disease; Ascites due to alcoholic cirrhosis (CMS-HCC) 09/24/2025 Orders Only [facility] Liver Transplant at [address] [address] Chapito Alcantar, RN Alcoholic cirrhosis of liver with ascites (CMS-HCC) (Primary Dx); Pre-transplant evaluation for chronic liver disease 09/24/2025 Chart Note [facility] Kidney Transplant at [address] [address] Ailin Wells Called local office again to get status of listing auth request. Spoke to 09/21/2025 Refill [facility] at [facility] [address] [facility] [address] [address] Arturo Gibson, RN 09/20/2025 Telephone [facility] Liver Transplant at [address] [phone] Cori Dover MA 09/20/2025 Chart Note [facility] Liver Transplant at [address] [address] Chapito Alcantar, RN Spoke with patient's spouse and updated her on current bed situation. 09/19/2025 Telephone [facility] Liver Transplant at [address] [phone] Chapito Alcantar, SILVIO 09/18/2025 Pharmacy Services [facility] [address] [place] [address] [phone] Delaney Bahena RXT 09/17/2025 Refill [facility] I[facility] at [facility] [address] [address] Johnny Dubois, SILVIO 09/17/2025 Telephone [facility] I[facility] at [facility] [address] [phone] Navi Sims MD 09/13/2025 Chart Note [facility] Liver Transplant at [address] [phone] Chapito Alcantar, RN Multi-disciplinary Hepatobiliary Case Conference Review: 09/11/2025 Telephone [facility] Liver Transplant at [address] [phone] Chapito Alcantar, RN 09/11/2025 Chart Note [facility] Kidney Transplant at [address] [address] Ailin Wells Faxed Clinical for Listing/Txp Auth 09/11/2025 Telephone [facility] Liver Transplant at [address] [address] Chapito Alcantar, SILVIO 09/10/2025 4:35 PM EDT [facility] [address] [place] [address] Buddy Zimmerman MD Alcoholic cirrhosis of liver with ascites (CMS-HCC); Pre-transplant evaluation for chronic liver disease 09/10/2025 2:00 PM EDT Office Visit [facility] Liver Transplant at [address] [phone] Unknown, Attending Provider Navi Sims MD Pre-transplant evaluation for chronic liver disease (Primary Dx); Encounter for pre-transplant evaluation for liver transplant 09/10/2025 1:30 PM EDT Office Visit [facility] Liver Transplant at [address] [phone] Lane Troy MD Alcoholic cirrhosis of liver with ascites (CMS-HCC) (Primary Dx); Pre-transplant evaluation for chronic liver disease 09/10/2025 1:00 PM EDT Office Visit [facility] Liver Transplant at [address] [phone] Buddy Zimmerman MD Pre-transplant evaluation for chronic liver disease (Primary Dx); Alcoholic cirrhosis of liver with ascites (CMS-HCC) 09/10/2025 12:00 PM EDT Office Visit [facility] Anesthesia Transplant at [address] [phone] Unknown, Attending Provider Stefan Gonzalez MD Pre-transplant evaluation for chronic liver disease (Primary Dx) 09/10/2025 10:03 AM EDT - 09/10/2025 11:59 PM EDT Hospital Encounter [facility] [address] [place] [address] Nigel Reaves MD Pre-transplant evaluation for chronic liver disease Discharge Disposition: Home or Self Care WITHOUT Home Care Services 09/10/2025 Social Work [facility] Liver Transplant at [address] [place] [address] Michelle Ho, ELECTRIC TRUCKER, SANFORIZER 09/10/2025 Nutrition [facility] Kidney Transplant at [address] [place] [address] Oskar Arango, RD 09/10/2025 Chart Note [facility] Liver Transplant at [address] [place] [address] Chapito Alcantar, SILVIO Alcoholic cirrhosis of liver with ascites (CMS-HCC) (Primary Dx); Pre-transplant evaluation for chronic liver disease 09/08/2025 8:34 PM EDT - 09/08/2025 11:59 PM EDT Hospital Encounter [facility] Radiology [address] [place] [address] System, Provider Not In Discharge Disposition: Home or Self Care WITHOUT Home Care Services 09/08/2025 8:34 PM EDT - 09/08/2025 11:59 PM EDT Hospital Encounter [facility] Radiology [address] [place] [address] System, Provider Not In Discharge Disposition: Home or Self Care WITHOUT Home Care Services 09/08/2025 8:31 PM EDT - 09/08/2025 8:33 PM EDT Hospital Encounter [facility] Radiology [address] [place] [address] System, Provider Not In Discharge Disposition: Home or Self Care WITHOUT Home Care Services 09/08/2025 8:31 PM EDT - 09/08/2025 8:33 PM EDT Hospital Encounter [facility] Radiology [address] [place] [address] System, Provider Not In Discharge Disposition: Home or Self Care WITHOUT Home Care Services 09/05/2025 Telephone [facility] Liver Transplant at [address] [address] Chapito Alcantar, SILVIO 09/05/2025 Telephone [facility] Liver Transplant at [address] [phone] Cori Dover MA 09/05/2025 Abstract [facility] Liver Transplant at [address] [phone] Chapito Alcantar, SILVIO Alcoholic cirrhosis of liver with ascites (CMS-HCC) (Primary Dx); Ascites due to alcoholic cirrhosis (CMS-HCC); Hepatic encephalopathy (CMS-HCC); Esophageal varices without bleeding, unspecified esophageal varices type (CMS-HCC); Pre-transplant evaluation for chronic liver disease 08/13/2025 Telephone [facility] Liver Transplant at [address] [phone] Cori Dover MA 08/13/2025 Telephone [facility] Liver Transplant at [address] [phone] Cori Dover MA 08/13/2025 Orders Only [facility] Liver Transplant at [address] [phone] Chapito Alcantar, SILVIO Pre-transplant evaluation for chronic liver disease (Primary Dx) 08/13/2025 Chart Note [facility] Kidney Transplant at [address] [place] [address] Ailin Wells Patient is financially cleared for liver transplant evaluation 08/02/2025 Chart Note [facility] Liver Transplant at [address] [place] [address] Cori Dover MA Liver transplant referral entered. 08/01/2025 Chart Note [facility] Liver Transplant at [address] [phone] Chapito Alcantar, taxicab driver for liver transplant was received and reviewed. The review notes 07/31/2025 Telephone [facility] Liver Transplant at [place] [phone] [place] [address] Chapito Alcantar, SILVIO from Last 3 Months Immunizations Immunization Administration [...] Mass Index 35.83 09/24/2025 12:32 PM EST Plan of Treatment Health Maintenance Due Date Last Done Comments Abnormal Colonoscopy Follow Up 1961 Hepatitis C Screening (MyChart) 1961 Immunization: COVID-19 (#1) 1966 HIV Screening 1979 Immunization: Hepatitis A (1 of 2 - Risk 2-dose series) 02/02/1980 Immunization: Pneumococcal ( 1 of 2 - PCV) 02/02/1980 Immunization: Zoster (1 of 2) 02/02/1980 Cologuard (FIT-DNA) 2006 Colonoscopy 2006 Colorectal Cancer Screening (MyChart) 2006 Stool Testing (gFOBT) 2006 Immunization: RSV (Adult) (1 - Risk 50-74 years 1-dose series) 2011 Immunization: Influenza (Shut Downhart) (#1) 2025 Depression Screening 09/10/2026 09/10/2025, 09/10/2025 Diabetes Screening 09/10/2026 09/10/2025 Immunization: DTaP/Tdap/Td ( 2 - Td or Tdap) 09/10/2035 09/10/2025 Immunization: Hepatitis B Completed 2023, 06/29/2023, 06/02/2023 Immunization: HPV Aged Out No longer eligible based on patient's age to complete this topic Procedures Procedure Name Priority Date/Time Associated Diagnosis Comments PROTIME-INR Routine 09/24/2025 2:11 PM EST Alcoholic cirrhosis of liver with ascites (CMS-HCC) Pre-transplant evaluation for chronic liver disease RENAL FUNCTION PANEL W/EGFR Routine 09/24/2025 2:11 PM EST Alcoholic cirrhosis of liver with ascites (CMS-HCC) Pre-transplant evaluation for chronic liver disease HEPATIC FUNCTION PANEL Routine 09/24/2025 2:11 PM EST Alcoholic cirrhosis of liver with ascites (CMS-HCC) Pre-transplant evaluation for chronic liver disease URINALYSIS W/RFL TO MICROSCOPIC Routine 09/24/2025 2:11 PM EST Esophageal varices without bleeding, unspecified esophageal varices type (CMS-HCC) Alcoholic cirrhosis of liver with ascites (CMS-HCC) Hepatic encephalopathy (CMS-HCC) Pre-transplant evaluation for chronic liver disease Ascites due to alcoholic cirrhosis (CMS-HCC) URINE CULTURE Routine 09/24/2025 2:11 PM EST Esophageal varices without bleeding, unspecified esophageal varices type (CMS-HCC) Alcoholic cirrhosis of liver with ascites (CMS-HCC) Hepatic encephalopathy (CMS-HCC) Pre-transplant evaluation for chronic liver disease Ascites due to alcoholic cirrhosis (CMS-HCC) ABO/RH Routine 09/10/2025 5:03 PM EDT Alcoholic [...] chronic liver disease HEPATIC FUNCTION PANEL Routine 09/10/2025 5:03 PM EDT Alcoholic [...] from Last 3 Months Results * (ABNORMAL) Hepatic Function Panel (09/24/2025 2:11 PM EST) Only the most recent of3 resultswithin the time period is included. Total Bilirubin 3.4(H) 0.0 - 1.5 mg/dL 09/24/2025 6:36 PM EST [facility] Bilirubin, Direct 1.07(H) 0.00 - 0.40 mg/dL 09/24/2025 6:36 PM EST [facility] AST 37 13 - 39 U/L 09/24/2025 6:36 PM EST [facility] ALT 22 7 - 52 U/L 09/24/2025 6:36 PM EST [facility] Alkaline Phosphatase 142(H) 36 - 125 U/L 09/24/2025 6:36 PM EST [facility] Total Protein 5.8(L) 6.4 - 8.9 g/dL 09/24/2025 6:36 PM EST [facility] Albumin 2.0(L) 3.5 - 5.7 g/dL 09/24/2025 6:36 PM EST [facility] Bilirubin, Indirect 2.33(H) 0.00 - 1.10 mg/dL 09/24/2025 6:36 PM EST [facility] Plasma 09/24/2025 2:11 PM EST 09/24/2025 5:52 PM EST us Nigel Reaves MD LAB BLOOD ORDERABLES Final Resul t [facility] [address] [facility]. [place] [id number], [facility] * (ABNORMAL) Renal Function Panel w/EGFR (09/24/2025 2:11 PM EST) Sodium 137 133 - 146 mmol/L 09/24/2025 6:36 PM EST [facility] Potassium 3.9 3.5 - 5.3 mmol/L 09/24/2025 6:36 PM EST [facility] Chloride 104 98 - 110 mmol/L 09/24/2025 6:36 PM EST [facility] CO2 29 21 - 33 mmol/L 09/24/2025 6:36 PM EST [facility] Comment:High lactate dehydro genase concentrations in patient samples may cause falsely increased bicarbonate results. If markedly elevated LDH is observed or suspected, please assess results in conjunction with patient`s clinical presentation. In cases of discrepant results, consider evaluating CO2 in with a blood gas order. Anion Gap 4 3 - 16 mmol/L 09/24/2025 6:36 PM EST [facility] BUN 13 7 - 25 mg/dL 09/24/2025 6:36 PM EST [facility] Creatinine 0.84 0.60 - 1.30 mg/dL 09/24/2025 6:36 PM EST [facility] Glucose 98 70 - 100 mg/dL 09/24/2025 6:36 PM EST [facility] Calcium 8.1(L) 8.6 - 10.3 mg/dL 09/24/2025 6:36 PM EST [facility] Phosphorus 3.5 2.1 - 4.7 mg/dL 09/24/2025 6:36 PM [facility] Albumin 2.0(L) 3.5 - 5.7 g/dL 09/24/2025 6:36 PM [facility] Osmolality, Calculated 284 278 - 305 mOsm/kg 09/24/2025 6:36 PM EST [facility] EGFR >90 09/24/2025 6:36 PM EST [facility] Comment: As of 2022, [...] renal disease. For additional information: www.kidney.org Plasma 09/24/2025 2:11 PM EST 09/24/2025 5:52 PM EST us Nigel Reaves MD LAB BLOOD ORDERABLES Final Resul t [facility] [address] [place] [address], [facility] * (ABNORMAL) Urinalysis w/Rfl to Microscopic (09/24/2025 2:11 PM EST) Color, UA Yellow Yellow,Straw 09/24/2025 3:25 PM EST [facility] Clarity, UA Cloudy(A) Clear 09/24/2025 3:25 PM EST [facility] Specific Savery, UA 1.019 1.005 - 1.035 09/24/2025 3:25 PM EST [facility] pH, UA 6.0 5.0 - 8.0 09/24/2025 3:25 PM EST [facility] Protein, UA 30(A) Negative mg/dL 09/24/2025 3:25 PM EST [facility] Glucose, UA Negative Negative mg/dL 09/24/2025 3:25 PM EST [facility] Ketones, UA Negative Negative mg/dL 09/24/2025 3:25 PM EST [facility] Bilirubin, UA Negative Negative 09/24/2025 3:25 PM EST [facility] Blood, UA Large(A) Negative 09/24/2025 3:25 PM EST [facility] Nitrite, UA Negative Negative 09/24/2025 3:25 PM EST [facility] Urobilinogen, UA <2.0 0.2 - 1.9 mg/dL 09/24/2025 3:25 PM EST [facility] Leukocyte Esterase, UA Large(A) Negative 09/24/2025 3:25 PM EST [facility] RBC, UA 61(H) 0 - 3 /HPF 09/24/2025 3:25 PM EST [facility] WBC, UA >100(H) 0 - 5 /HPF 09/24/2025 3:25 PM EST [facility] Squam Epithel, UA 1 0 - 5 /HPF 09/24/2025 3:25 PM EST [facility] Bacteria, UA Rare(A) None Seen /HPF 09/24/2025 3:25 PM EST [facility] Mucus, UA Present(A) None Seen /HPF 09/24/2025 3:25 PM EST [facility] Urine 09/24/2025 2:11 PM EST 09/24/2025 2:51 PM EST Nigel Reaves MD URINE ORDERABLES Final Result Performing Organization Address City/State/[facility] Co de Phone Number [facility] [address] * (ABNORMAL) Protime-INR (09/24/2025 2:11 PM EST) Only the most recent of3 resultswithin the time period is included. Protime 22.7(H) 12.1 - 15.1 seconds 09/24/2025 3:06 PM EST [facility] INR 1.9(H) 0.9 - 1.1 09/24/2025 3:06 PM EST [facility] Comment: RECOMMENDED THERAPEUTIC RANGES USING INR : Stable oral anticoagulant therapy: 2.0 - 3.0 Mechanical prosthetic heart valve: 2.5 - 3.5 Recurrent acute myocardial infarction: 2.5 - 3.5 Plasma 09/24/2025 2:11 PM EST 09/24/2025 2:43 PM EST us Nigel Reaves MD LAB BLOOD ORDERABLES Final Resul t Performing Organization Address City/[facility]/ZIP Co de Phone Number [facility] [address] * Urine culture (09/24/2025 2:11 PM EST) Culture Result No Growth [facility] Midstream Urine URINE SPECIMEN / Unknown 09/24/2025 2:11 PM EST 09/24/2025 3:25 PM EST us Nigel Reaves MD MICROBIOLOGY - GENERAL ORDERABLE S Final Result Performing Organization Address [facility] Co de Phone Number [facility] [address] * (ABNORMAL) MMR(IgG) Panel (Measles, Mumps, Rubella) (09/10/2025 5:03 PM EDT) Mumps IgG Positive 09/10/2025 11:51 PM EDT [facility] MUMPS IGG NUM >300.00(H) 0.0 - 8.9 U/mL 09/10/2025 11:51 PM EDT [facility] Rubella IgG Scr Positive 09/10/2025 11:51 PM EDT [facility] RUB NUM 30.20(H) 0.0 - 0.8 INDEX 09/10/2025 11:51 PM EDT [facility] Rubeola Ab, IgG Positive 09/10/2025 11:50 PM EDT [facility] RUB IGG NUM >300.00(H) 0.00 - 13.40 U/mL 09/10/2025 11:50 PM EDT [facility] Serum 09/10/2025 5:03 PM EDT 09/10/2025 10:26 PM EDT Narrative [facility] - 09/10/2025 11:51 PM [...] MD LAB BLOOD ORDERABLES Final Resu lt [facility] [address] * Syphilis Screening (Trepia) (09/10/2025 5:03 PM EDT) Treponema Pallidum Negative Negative 09/10/2025 11:55 PM EDT [facility] Comment: No serological evidence of infection with Treponema pallidum (incubating or early primary syphilis cannot be excluded). Serum 09/10/2025 5:03 PM EDT 09/10/2025 10:26 PM EDT Navi Sims MD LAB BLOOD ORDERABLES Final Resu lt [facility] [address] [facility] * QuantiFERON TB2 Ag (09/10/2025 5:03 PM EDT) QuantiFERON TB2 Ag Value 0.09 09/12/2025 1:19 PM EDT [facility] Plasma 09/10/2025 5:03 PM EDT 09/10/2025 6:29 PM EDT Navi Sims MD LAB BLOOD ORDERABLES Final Resu lt [facility] [address] [facility]. [address] * QuantiFERON TB1 Ag (09/10/2025 5:03 PM EDT) QuantiFERON TB1 Ag Value 0.08 09/12/2025 1:19 PM EDT [facility] Plasma 09/10/2025 5:03 PM EDT 09/10/2025 6:29 PM EDT us Navi Sims MD LAB BLOOD ORDERABLES Final Resu lt Performing Organization Address City/[facility]/ZIP Co de Phone Number [facility] [address] [facility] * QuantiFERON Nil (09/10/2025 5:03 PM EDT) Pathologist [facility] [place] QuantiFERON Nil 0.02 1:19 PM EDT [facility] Plasma 09/10/2025 5:03 PM EDT 09/10/2025 6:29 PM EDT us Navi Sims MD LAB BLOOD ORDERABLES Final Resu lt Performing Organization Address City/[facility] Co de Phone Number [facility] [address] [facility] * QuantiFERON Mitogen (09/10/2025 5:03 PM EDT) Pathologist [facility] [place] QuantiFERON Interpretation Negative Negative 09/12/2025 1:19 PM EDT [facility] Comment:Negative result pilar cates M. tuberculosis infection is NOT likely. Negative results do not preclude tuberculosis infection (especially in immunosuppressed patients). Negative results have a TB antigen minus Nil value less than 0.35 IU/mL. In cases with high suspicion of disease, retesting or additional testing with medical evaluation may be useful. QuantiFERON Mitogen 8.77 09/12 1:19 PM EDT [facility] Plasma 09/10/2025 5:03 PM EDT 09/10/2025 6:29 PM EDT Narrative [facility] - 09/12/2025 1:19 PM [...] Address City/[facility]/ZIP Co de Phone Number [facility] [address] [facility]. [address] * (ABNORMAL) Strongyloides Ab (09/10/2025 5:03 PM EDT) [facility] Strongyloides Ab Positive( A) Negative 09/17/2025 2:56 PM EST [facility] Serum 09/10/2025 5:03 PM EDT 09/17/2025 3:07 PM EST Narrative [facility] - 09/17/2025 3:07 PM EST PERFORMED AT: [address] [id number] OCC MED PHYSICIAN: Kevin Holguin MD PHONE: [phone] Navi Sims MD LAB BLOOD ORDERABLES Final Resu lt Performing Organization Address [facility] Co de Phone Number [facility] [address] [facility]. [address] * AFP tumor marker (09/10/2025 5:03 PM EDT) [facility] AFP-Tumor Marker 2.0 0.0 - 9.0 ng/mL 09/10/2025 8:52 PM EDT [facility] Serum 09/10/2025 5:03 PM EDT 09/10/2025 6:42 PM EDT Narrative [facility] - 09/10/2025 8:52 PM EDT The testing method for AFP is a chemiluminescent immunoassay manufactured by [employer] Concentrations of AFP obtained by different assay methods or kits may vary and cannot be used interchangeably. AFP results cannot be interpreted as absolute evidence of the presence or absence of malignant disease. us Buddy Zimmerman MD LAB BLOOD ORDERABLES Final Resul t [facility] [address] [facility]. [address] * ABO/Rh (09/10/2025 5:03 PM EDT) ABO Grouping A 09/10/2025 7:26 PM EDT [facility] [facility] Rh Type Positive 09/10/2025 7:26 PM EDT [facility] Blood 09/10/2025 5:03 PM EDT 09/10/2025 6:49 PM EDT Buddy Zimmerman MD BLOOD BANK TEST ORDERABLES Final Result Performing Organization Address [facility]/ZIP Co de Phone Number [facility] [address] [facility] * Toxoplasma gondii antibody, IgG (09/10/2025 5:03 PM EDT) Toxoplasma Gondii IgG <3.0 0.0 - 7.1 IU/mL 09/12/2025 6:21 AM EDT [facility] Comment: Negative <7.2 Equivocal 7.2 - 8.7 Positive >8.7 Serum 09/10/2025 5:03 PM EDT 09/12/2025 7:06 AM EDT Narrative [facility] - 09/12/2025 7:06 AM EDT PERFORMED AT: [facility] [address] [id number] OCC MED PHYSICIAN: Mateo Miller, PhD PHONE: [phone] us Navi Sims MD LAB BLOOD ORDERABLES Final Resu lt Performing Organization Address City/[facility]/ZIP Co de Phone Number [facility] [address] [facility] * (ABNORMAL) CBC (09/10/2025 5:03 PM EDT) Pathologist [facility] [place] WBC 4.2 3.8 - 10.8 10E3/uL 09/10/2025 6:57 PM EDT [facility] RBC 3.39(L) 4.20 - 5.80 10E6/uL 09/10/2025 6:57 PM EDT [facility] Hemoglobin 11.4(L) 13.2 - 17.1 g/dL 09/10/2025 6:57 PM EDT [facility] Hematocrit 33.9(L) 38.5 - 50.0 % 09/10/2025 6:57 PM EDT [facility] MCV 100.1(H) 80.0 - 100.0 fL 09/10/2025 6:57 PM EDT [facility] MCH 33.7(H) 27.0 - 33.0 pg 09/10/2025 6:57 PM EDT [facility] MCHC 33.7 32.0 - 36.0 g/dL 09/10/2025 6:57 PM EDT [facility] RDW 18.5(H) 11.0 - 15.0 % 09/10/2025 6:57 PM EDT [facility] Platelets 66(L) 140 - 400 10E3/uL 09/10/2025 6:57 PM EDT [facility] MPV 7.8 7.5 - 11.5 fL 09/10/2025 6:57 PM EDT [facility] Whole Blood 09/10/2025 5:03 PM EDT 09/10/2025 6:33 PM EDT Buddy Zimmerman MD LAB BLOOD ORDERABLES Final Resul t [facility] [address] [place] [address], [facility] * (ABNORMAL) Varicella zoster antibody, IgG (09/10/2025 5:03 PM EDT) Pathologist [facility] [place] Varicella IgG Positive( A) Negative S/CO 09/10/2025 11:49 PM EDT [facility] Comment:Result indicates the presence [...] - 0.99 S/CO 09/10/2025 11:49 PM EDT [facility] Serum 09/10/2025 5:03 PM EDT 09/10/2025 10:26 PM EDT Navi Sims MD LAB BLOOD ORDERABLES Final Resu lt Performing Organization Address [facility] de Phone Number [facility] [address] * TSH (Thyroid Stimulating Hormone) (09/10/2025 5:03 PM EDT) TSH 2.85 0.45 - 4.12 uIU/mL 09/11/2025 12:13 AM EDT [facility] Serum 09/10/2025 5:03 PM EDT 09/10/2025 6:42 PM EDT Buddy Zimmerman MD LAB BLOOD ORDERABLES Final Resul t Performing Organization Address [facility] de Phone Number [facility] [address] * Hemoglobin A1c (09/10/2025 5:03 PM EDT) Hemoglobin A1C 4.0 4.0 - 5.6 % 09/10/2025 11:22 PM EDT [facility] Comment: Hemoglobin A1c Interpretation [...] BLOOD ORDERABLES Final Resul t [facility] [address] [place] [address], [facility] * (ABNORMAL) Lipid Profile (09/10/2025 5:03 PM EDT) Non-HDL Cholesterol, Calculated 109 0 - 129 mg/dL 09/10/2025 8:21 PM EDT [facility] Comment: Desirable: < 130 mg/dL Above Desirable: 130-159 mg/dL Borderline High: 160-189 mg/dL High: 190-219 mg/dL Very High: > 219 mg/dL Cholesterol, Total 135 0 - 200 mg/dL 09/10/2025 8:21 PM EDT [facility] Triglycerides 60 10 - 149 mg/dL 09/10/2025 8:21 PM EDT [facility] HDL 26(L) 60 - [...] 97 mg/dL 8:21 PM EDT [facility] Plasma 09/10/2025 5:03 PM EDT 09/10/2025 5:52 PM EDT Narrative [facility] - 09/10/2025 8:21 PM EDT Must the patient be fasting for this test?->No LDL cholesterol calculated using the Friedewald equation. us Buddy Zimmerman MD LAB BLOOD ORDERABLES Final Resul t [facility] [address] [place] [address], [facility] * (ABNORMAL) Basic metabolic panel (09/10/2025 5:03 PM EDT) Sodium 142 133 - 146 mmol/L 09/10/2025 8:21 PM EDT [facility] Potassium 3.8 3.5 - 5.3 mmol/L 09/10/2025 8:21 PM EDT [facility] Chloride 110 98 - 110 mmol/L 09/10/2025 8:21 PM EDT [facility] CO2 27 21 - 33 mmol/L 09/10/2025 8:21 PM EDT [facility] Comment:High lactate dehydro genase concentrations in patient samples may cause falsely increased bicarbonate results. If markedly elevated LDH is observed or suspected, please assess results in conjunction with patient`s clinical presentation. In cases of discrepant results, consider evaluating CO2 in with a blood gas order. Anion Gap 5 3 - 16 mmol/L 09/10/2025 8:21 PM EDT [facility] BUN 10 7 - 25 mg/dL 09/10/2025 8:21 PM EDT [facility] Creatinine 0.90 0.60 - 1.30 mg/dL 09/10/2025 8:21 PM EDT [facility] Glucose 79 70 - 100 mg/dL 09/10/2025 8:21 PM EDT [facility] Calcium 7.9(L) 8.6 - 10.3 mg/dL 09/10/2025 8:21 PM EDT [facility] Osmolality, Calculated 292 278 - 305 mOsm/kg 09/10/2025 8:21 PM EDT [facility] EGFR >90 09/10/2025 8:21 PM EDT [facility] Comment: As of 2022, [...] BLOOD ORDERABLES Final Resul t [facility] [address] * ECG 12-Lead (MUSE) (09/10/2025 12:14 PM EDT) 09/10/2025 12:1 4 PM EDT Narrative MUSE - 09/10/2025 3:28 PM EDT Ventricular Rate: 64 BPM Atrial Rate: 64 BPM P-R Interval: 190 ms QRS Duration: 84 ms QT: 464 ms QTc: 478 ms P [place]: 27 degrees R [place]: 58 degrees T [place]: 22 degrees Diagnosis Line: NORMAL SINUS RHYTHM ^ NORMAL ECG ^ No previous ECGs available ^ Confirmed by MD TIP, [facility] ([id number]) on 09/10/2025 3:28:36 PM [...] within the right upper lobe with downstream [id number] within the paramedian right upper lobe apex. [...] l Result from Last 3 Months Insurance [employer] ACCESS [employer] ACC[employer] Care Teams Key Punch Operator Relationship Specialty Start Date End Date System, Provider Not In PCP - General 09/10/25
--- OUTSIDE RECORDS SUMMARY | 2025-10-08 07:15 | XMS_ITS | Encounter Summary ---
Author Organization Healthcare Address [address] [place] [address] Care Team Providers Care Spot Remover Name Role Phone Ruma Hernández COLUMNIST Unavailable [phone] Chris Medel MD Primary Care Provider [phone] Reason for Visit * Reason Comments Med Refill Encounter Details Date Type Department Care Team (Late st Contact Info) Description 10/02/2025 [facility] [address] [place] [address] Portia Maguire MD [address] [place] [address] Pre-liver transplant, listed (Primary Dx); End-stage liver disease (CMS/HCC) Social History Tobacco Use Types Packs/Day [...] r organizations such as christianity groups, unions, [employer] or athletic groups, or school groups? Yes [...] r organizations such as christianity groups, unions, [employer] or athletic groups, or school groups? Yes [...] Not hard at all 06/15/2025 [facility] - Occupational Stress [...] drink first t luisa in the morning (EYE-ASSOCIATE FINANCIAL ADVISOR) to steady your nerves or to [...] Center Bone [facility] Mineral Metabolism [address] [facility], [address] [place] [address] Moustapha Katz MD [address] [facility] [address] [place] [address] 11/27/2025 3:45 PM EST Office Visit Medical Office Building Urology [address] [facility], [address] [place] [address] Suhail Brock MD [address] [place] [address] 12/12/2025 8:30 AM EST Clinical Support [facility] [address] [facility] [address] [place] [address] 12/12/2025 10:00 AM EST Office Visit [facility] [address] [facility] [address] [place] [address] Portia Maguire MD [address] [facility] [address] [place] [address] documented as of this encounter Visit Diagnoses Diagnosis Pre-liver transplant, listed- Primary End-stage liver disease (CMS/HCC) Other sequelae of chronic liver disease documented in this encounter Additional Health Concerns Assessment Noted Time PHQ-9 Depression Total Score: 0 10/04/20 12:32 PM EST A fall risk assessment has been complete d for the patient 09/12/2025 8:14 AM EDT A Body Mass Index follow-up plan has been documented for the patient 09/17/2025 1:33 PM EST documented as of this encounter Care Teams Spot Remover Relationship Specialty [place] [id number] PCP - General 03/14/25 Ruma Hernández APRN [address] [facility] [address] [place] [address] Referring Physician Gastroenterology 07/30/23 documented as of this encounter
--- OUTSIDE RECORDS SUMMARY | 2025-10-08 07:15 | XMS_ITS | Encounter Summary ---
Author Organization Healthcare Address [address] [place] [address] Care Team Providers Care Elementary Tutor Name Role Phone Ruma Hernández MANAGER FIELD INVESTIGATIONS Unavailable [phone] Chris Medel MD Primary Care Provider [phone] Encounter Details Date Type Department Care Team (Late st Contact Info) Description 07/05/2025 Results Follow-Up [facility] [address] [place] [phone] Meaghan Le, RN [facility] LIVER [id number] [address] [place] [address] Social History Tobacco Use Types Packs/Day Years [...] How often do you attend [facility] or yazidism services? More than 4 times per year 02/19/2025 Do you belong to any clubs o r organizations such as christian groups, unions, [employer] or athletic groups, or school groups? Yes [...] 06/15/2025 [facility] - Occupational Stress [...] the past [address] [facility], were you homeless or living in a [...] drink first t luisa in the morning (EYE-GEOMORPHOLOGY TEACHER) to steady your nerves or to get rid of a hangover? 0 06/14/2025 CAGE Questionnaire Score 0 025 Utilities Answer Date Recorded In the past 12 months has th [employer], gas, oil, or water [employer] threatened to shut off services in your [...] 10/18/2025 4:20 PM EST Office Visit [facility] [address] [facility], [address] [place] [address] Moustapha Katz MD [address] [facility] [address] [place] [address] 11/27/2025 3:45 PM EST Office Visit Medical Office Building Urology [address] [facility], [address] [place] [address] Suhail Brock MD [address] [facility] [address] [place] [address] 12/12/2025 8:30 AM EST Clinical Support [facility] [address] [place] [address] 12/12/2025 10:00 AM EST Office Visit [facility] [address] [place] [address] Portia Maguire MD [address] [place] [address] documented as of this encounter Visit Diagnoses [...] documented as of this encounter Care Teams Elementary Tutor Relationship Specialty [place] [id number] PCP - General 03/14/25 Ruma Hernández APRN [address] [place] [address] Referring Physician Gastroenterology 07/30/23 documented as of this encounter
--- OUTSIDE RECORDS SUMMARY | 2025-10-08 07:16 | XMS_ITS | Encounter Summary ---
Author Organization Healthcare Address [address] [place] [address] Care Team Providers Care Tire Regrooving Machine Operator Name Role Phone Ruma Hernández FISCAL ASSISTANT Unavailable [phone] Chris Medel MD Primary Care Provider [phone] Encounter Details Date Type Department Care Team (Late st Contact Info) Description 06/14/2025 Results Follow-Up [facility] [address] [place] [address] Meaghan Le, RN [facility] LIVER [id number] [address] [place] [address] Social History Tobacco Use Types Packs/Day Years [...] do you attend [facility] or adventist services? More than 4 times per year 02/19/2025 Do you belong to any clubs o r organizations such as protestant groups, unions, [employer] or athletic groups, or school groups? Yes [...] and heating? Not hard at all 06/15/2025 [facility] - Occupational Stress Questionnaire Answer [...] drink first t luisa in the morning (EYE-RAT TRAPPER) to steady your nerves or to get rid of a hangover? 0 06/14/2025 CAGE Questionnaire Score 0 025 Utilities Answer Date Recorded In the past 12 months has th e [employer], gas, oil, or water [employer] threatened to shut off services in your [...] Questionnaire -2 Score 0 07/11/2025 9:24 AM EDAudie Wilson * Calculated C-SSRS Risk Score (Lifetime/Recent) Answer [...] Upcoming Encounters Date Type Department Care Team ([facility] st Contact Info) Description 10/18/2025 4:20 PM EST [facility] Visit [facility] [address] [facility], [address] [place] [address] Moustapha Katz MD [address] [facility] [address] [place] [address] 11/27/2025 3:45 PM EST Office Visit Medical Office Building Urology [address] [facility], [address] [place] [address] Suhail Brock MD [address] [facility] [address] [place] [address] 12/12/2025 8:30 AM EST Clinical Support [facility] Transplant [place] [address] [facility] [address] [place] [address] 12/12/2025 10:00 AM EST Office Visit [facility] [place] [address] [facility] [address] [place] [address] Portia Maguire MD [address] [facility] [address] [place] [address] documented as of this encounter Visit Diagnoses [...] documented as of this encounter Care Teams Tire Regrooving Machine Operator Relationship Specialty [place] [address] PCP - General 03/14/25 Ruma Hernández APRN [address] [address] Referring Physician Gastroenterology 07/30/23 documented as of this encounter
--- OUTSIDE RECORDS SUMMARY | 2025-10-08 07:16 | XMS_ITS | Encounter Summary ---
Author Organization [facility] Address [address] [place] [address] Care Team Providers Care Monitoring Manager Name Role Phone System, Provider Not [...] release of HIV test results or diagnoses. [id number] Health Encounter Details Date Type Department Care Team (Late st Contact Info) Description 09/25/2025 Telephone [facility] Transplant at [address] [address] Chapito Alcantar, SILVIO Social History Tobacco Use [...] Progress Notes * Chapito Alcantar RN - 09/25/2025 4:28 PM EST Called patient's spouse to review the recent committee decision. She is agreeable to be listed on the [facility] transplant wait list. Reviewed HBV/HCV/acute risk organs with patient. They are agreeable toall offers. Patient [place] 1.5-2 hours from [facility]. documented in this encounter Plan of Treatment Not on file documented as of this encounter Visit Diagnoses Not on filedocumented in this encounter Additional Health Concerns Assessment Noted Time PHQ-9 Depression Total Score: 8 09/10/20 11:09 AM EDT documented as of this encounter Care Teams Monitoring Manager Relationship Specialty Start Date End Date System, Provider Not In PCP - General 09/10/25 documented as of this encounter
--- OUTSIDE RECORDS SUMMARY | 2025-10-08 07:16 | XMS_ITS | Encounter Summary ---
Author Organization [facility] Address [address] [place] [address] Care Team Providers Care Double Head Machine Operator Name Role Phone Unknown, Attending Provider [...] release of HIV test results or diagnoses. [id number] Health Encounter Details Date Type Department Care Team (Late st Contact Info) Description 06/13/2025 Orders Only EXTERNAL PROV RESULTS [address] [place] [id number] System, Provider Not In Social History Tobacco [...] on filedocumented in this encounter Care Teams Double Head Machine Operator Relationship Specialty Start Date End Date Unknown, Attending Provider PCP - General 08/29/2508/16 System, Provider Not In PCP - General 09/10/25 documented as of this encounter
--- OUTSIDE RECORDS SUMMARY | 2025-10-08 07:16 | XMS_ITS | Encounter Summary ---
Author Organization Healthcare Address [address] [place] [address] Care Team Providers Care Scrap Picker Name Role Phone Ruma Hernández THERAPEUTIC STRATEGY LEAD Unavailable [phone] Chris Medel MD Primary Care Provider [phone] Encounter Details Date Type Department Care Team (Late st Contact Info) Description 08/01/2025 Results Follow-Up [facility] [address] [place] [address] Meaghan Le, RN [facility] LIVER [id number] [address] [place] [address] Social History Tobacco Use Types Packs/Day Years [...] 02/19/2025 How often do you attend [facility] or advent services? More than 4 times per year 02/19/2025 Do you belong to any clubs o r organizations such as nondenominational groups, unions, [employer]alt[employer]al or athletic groups, or school groups? Yes [...] at all 06/15/2025 [facility] - Occupational Stress Questionnaire Answer Date [...] first t luisa in the morning (EYE-DIESEL LOCOMOTIVE FIRER/FIREMAN) to steady your nerves or to get rid of a hangover? 0 06/14/2025 CAGE Questionnaire Score 0 025 Utilities Answer Date Recorded In the past 12 months has th e [employer], gas, oil, or water [employer] threatened to shut off services in your [...] 10/18/2025 4:20 PM EST Office Visit [facility] [address] , [address] [place] [address] Moustapha Katz MD [address] [facility] [address] [place] [address] 11/27/2025 3:45 PM EST Office Visit Medical Office Building Urology [address] [facility], [address] [place] [address] Suhail Brock MD [address] [facility] [address] [place] [address] 12/12/2025 8:30 AM EST Clinical Support [facility] Transplant [place] [address] [facility] [address] [place] [address] 12/12/2025 10:00 AM EST Office Visit [facility] Trans[facility] [place] [address] [place] [facility] [address] [place] [address] Portia Maguire MD [address] [facility] [address] [place] [address] documented as of this encounter [...] documented as of this encounter Care Teams Scrap Picker Relationship Specialty [place] [address] PCP - General 03/14/25 Ruma Hernández APRN [address] [place], [place] [address] Referring Physician Gastroenterology 07/30/23 documented as of this encounter
--- OUTSIDE RECORDS SUMMARY | 2025-10-08 07:16 | XMS_ITS | Encounter Summary ---
Author Organization Healthcare Address [address] [place] [address] Care Team Providers Care Menswear Salesperson Name Role Phone Ruma Hernández ATHLETE MARKETING AGENT Unavailable [phone] Chris Medel MD Primary Care Provider [phone] Encounter Details Date Type Department Care Team (Late st Contact Info) Description 07/19/2025 Results Follow-Up [facility] [address] [place] [address] Meaghan Le, RN [facility] LIVER [id number] [address] [place] [address] Social History Tobacco Use Types Packs/Day Years [...] How often do you attend [facility] or taoism services? More than 4 times per year 02/19/2025 Do you belong to any clubs o r organizations such as restorationism groups, unions, [employer] or athletic groups, or school groups? Yes [...] How often do you attend chur or taoism services? More than 4 times [...] hard at all 06/15/2025 [facility] - Occupational Stress Questionnaire Answer [...] drink first t luisa in the morning (EYE-PERFORATOR LOADER) to steady your nerves or to get rid of a hangover? 0 06/14/2025 CAGE Questionnaire Score 0 025 Utilities Answer Date Recorded In the past 12 months has th e [employer], gas, oil, or water [employer] threatened to shut off services in your [...] 10/18/2025 4:20 PM EST Office Visit Professional [facility] Bone & Mineral Metabolism [address] , [address] [place] [address] Moustapha Katz MD [address] [facility] [address] [place] [address] 11/27/2025 3:45 PM EST Office Visit Medical Office Building Urology [address] [facility], [address] [place] [address] Suhail Brock MD [address] [facility] [address] [place] [address] 12/12/2025 8:30 AM EST Clinical Support [facility] [place] [address] [facility] [address] [place] [address] 12/12/2025 10:00 AM EST Office Visit [facility] [place] [address] [place] [facility] [address] [place] [address] Portia Maguire MD [address] [facility] [address] [place] [address] documented as of this encounter [...] documented as of this encounter Care Teams Menswear Salesperson Relationship Specialty [place] [address] PCP - General 03/14/25 Ruma Hernández APRN [address] [place], [place] [address] Referring Physician Gastroenterology 07/30/23 documented as of this encounter
--- OUTSIDE RECORDS SUMMARY | 2025-10-08 07:16 | XMS_ITS | Encounter Summary ---
Author Organization Healthcare Address [address] [place] [address] Care Team Providers Care Offbearer Sewer Pipe Name Role Phone Ruma Hernández PITCH WORKER Unavailable [phone] Chris Medel MD Primary Care Provider [phone] Encounter Details Date Type Department Care Team (Late st Contact Info) Description 08/20/2025 Results Follow-Up [facility] [address] [place] [phone] Meaghan Le, RN [facility] LIVER P[facility]-CH-NRAYM [address] [place] [address] Social History Tobacco Use Types Packs/Day Years [...] you attend [facility] or bahai services? More than 4 times per year 02/19/2025 Do you belong to any clubs o r organizations such as mandaen groups, unions, Ethonovaternal or athletic groups, or school groups? Yes [...] and heating? Not hard at all 06/15/2025 [facility] - Occupational Stress Questionnaire Answer [...] drink first t luisa in the morning (EYE-DRAWING KILN SUPERVISOR) to steady your nerves or to get rid of a hangover? 0 06/14/2025 CAGE Questionnaire Score 0 025 Utilities Answer Date Recorded In the past 12 months has th e Miso, gas, oil, or water BTC Trip threatened to shut off services in your [...] [facility], [address] [place] [address] Moustapha Katz MD [address] [facility] [address] [place] [address] 11/27/2025 3:45 PM EST Office Visit Medical Office Building Urology [address] [facility], [address] [place] [address] Suhail Brock MD [address] [facility] [address] [place] [address] 12/12/2025 8:30 AM EST Clinical Support [facility] [address] [place] [address] 12/12/2025 10:00 AM EST Office Visit [facility] [address] [place] [address] Portia Maguire MD [address] [place] [address] documented as of this encounter Visit Diagnoses [...] documented as of this encounter Care Teams Offbearer Sewer Pipe Relationship Specialty [place] [address] PCP - General 03/14/25 Ruma Hernández APRN [address] [facility] [address] [place] [address] Referring Physician Gastroenterology 07/30/23 documented as of this encounter
--- OUTSIDE RECORDS SUMMARY | 2025-10-08 07:16 | XMS_ITS | Encounter Summary ---
Author Organization [facility] Address [address] [place] [address] Care Team Providers Care Sales Promotion Representative Name Role Phone System, Provider Not [...] release of HIV test results or diagnoses. [id number] Reason for Visit * Reason Comments Appointment Encounter Details Date Type Department Care Team (Late st Contact Info) Description 10/03/[address] [facility] Liver Transplant at [address] [address] Pb Sy, RN Appointment Social History Tobacco Use Types Packs/Day Years [...] encounter Miscellaneous Notes * Telephone Encounter - Pb Sy RN - 10/03/2025 10:40 AM EST Received notification for potential Liver transplant for David Pop, 1960. Donor ID and Match run verified via email with Dr. WINKLER. Offer History Type: Primary Local back up: NO Open Offer: NO Waivers: NO Type Given: N/A (Anatomical, Biopsy, Crossmatch, Cold time, Pump, Full) Time granted: 1041 Who granted: OPO OPO: [facility] OPO Contact: Recent illnesses [] Yes [x] No Recent blood transfusions [] Yes [x] No Anticoagulation [] Yes [x] No Recent hospitalizations [] Yes [x] No Last meal Date/Time: NPO [x] Yes [] No Pt instructed for admission Location: Estimated arrival time: [x] Yes [] No Significant other/caregiver will accompany the patient and will be available to the medical/surgical team as needed for updates/progress during surgery. [x] Yes [] No If patient is in-house, patient and or family member advised [] Yes [x] No KIDNEY Dialysis [] Home Hemo [] Hemo []PD [x] Not Applicable Last session: Date: Ran hours: PD Patients: Do not need to bring equipment or solution to [facility]. They will get supplies from dialysis unit if needed. LIVER HCC: Confirmed with the OR that the patient has HCC and that the patient did NOT have a SIRT in thelast 30 days. The patient's significant other/caregiver will accompany the patient and will be available to the medical/surgical team as needed for updates/progress during surgery. [x] Not Applicable Transplant outcomes can be viewed on the SRTR website: www.srtr.org Discuss update to the Informed consent for evaluation: Organ donor risk factors that could affect the success of the Liver transplant or your health, including, but not limited to, the donor's history, condition or age of the organs used, or the patient's potential risk of meghana the human immunodeficiency virus (HIV), hepatitis B virus (HBV), hepatitis C virus (HCV) and other infectious diseases if the disease cannot be detected at the time of donation. If the donor is infected with Malaria, an infection the donor could have been exposed to, or has cancer, it may not be detected at the time of organ donation. A complete history of the organ donor isobtained from family or friends to identify any cancers, infections, or behavior(s) that may put the organ donor at risk for these infections. Notifications: Department Phone Comments Time/Name Capacity Management [phone] Notified of patient's pending TXP ORGANS:LIVER Time:1130 Spoke to:ANASTASIIA HERNANDEZ [phone] OR scheduled for: per Dr. WINKLER Recipient in the OR time 10/03 Acute donor Risk (according to OPTN policy)NO (HCV, HBV, HIV, COVID) Notified Donor is DCD Heart using Paragonix N/A Time:113 OR property inspector:AVANI LUGO ORGAN Time:104 BLOOD BANK [phone] For Liver and Heart only 113 [facility] Nursing Enterprise Systems Engineer [phone] For delayed call in [email or web address] PACU or Sameday [phone] Delayed call in: If recipient OR is 2 hrs or less from admission, call PACU/Sameday (basedon where nursing broadcast field supervisor assigns patient) DELAYED CALL IN Abdominal Transplant 8CCP [phone] Transfer of care reported for abdominal txp Notified of dialysis type and last session if applicable Time:DELAYED CALL IN 8CCP property inspector: SICU [phone] Notify about abdominal txp admissions Time:1150 SICU property inspector:SHILOH Transplant Surgery Resident/LAISHA Wyatt PAGED@[email or web address] Time:1156 Spoke to:DR CHRISTIANSON Transplant Surgery Fellow QKhoa Time:1156 Spoke to:DR RUSSELL Transplant Research Team [phone] LEFT MESSAGE @0276 Time:1157 Spoke to: If applicable, Dialysis Unit EMR Time:N/A Spoke to: Pharmacy IV Room [phone] Liver Only Contact pharmacy to alert that HBIG will be needed when all the following are present: Donor: *HBsAg negative *HBV DNA/NII negative Recipient: *HBsAg positive *HBV DNA is detectable on most recent check Time:N/A Spoke to: Heart Transplant CVICU [phone] Transfer of care reported for heart txp Time:N/A CVICU property inspector: Email notification to Transplant Team(s) and OR property inspector. Received notification for potential Liver transplant for David Pop, 1960. Recipient Info: David Pop 1960 ABO: A CMV: NEGATIVE EBV: POSITIVE HepBsAb: POSITIVE Referring MD: Dr. Portia Maguire. Surgeon: Dr. PETERSON Dai ETA: DELAYED CALL IN OR time and date: 10/03 CRRT needed in OR: NO Venoveno bypass: NO Donor info: Donor ID: [id number] Match ID: [id number] Anti-HBc: Negative HBV NII: Negative HBsAg: Negative HBsAb: Not Done Anti-HCV: Negative HCV NII: Negative Anti-HIV I/II: Not Done HIV Ag/Ab Combo: Negative HIV NII: Negative Anti-HTLV I/II: Negative HTLV NII: Not Done Anti-CMV: Positive Syphilis: Negative EBV (VCA) (IgG): Positive EBV (VCA) (IgM): Negative EBNA: Not Done Toxoplasma (IgG): Negative T. cruzi Ab Screen: Negative West Nile: Not Done West Nile NII: Not Done Strongyloides Ab: Not Done COVID: NEGATIVE ABO: A1 OPO: Remote Open offer: NO Open offer with waivers (anatomy, pump, biopsy, cold time, crossmatch, full): N/A Backup offer :NO Acute HIV/HBV/HCV risk: YES Kidneys coming on pump: N/A Liver being pumped: NO LIVERGuard being used: yes Heart using Transmedics/Paragonix: N/A Patient educated on the risk of transmission of acute HIV, HBV or HCV based on recent social, incarceration or unknown history within the past 30 days. All donors are NII tested for HIV, HBV, HCV, and post-transplant patient will undergo NII testing for HIV, HBV, and HCV. If transmission occurs effective therapies will be prescribed as indicated. documented in this encounter Plan of Treatment Not on file documented as of this encounter Visit Diagnoses Not on filedocumented in this encounter Additional Health Concerns Assessment Noted Time PHQ-9 Depression Total Score: 8 09/10/20 11:09 AM EDT documented as of this encounter Care Teams Sales Promotion Representative Relationship Specialty Start Date End Date System, Provider Not In PCP - General 09/10/25 documented as of this encounter
--- OUTSIDE RECORDS SUMMARY | 2025-10-08 07:16 | XMS_ITS | Encounter Summary ---
Author Organization [facility] Address [address] [place] [address] Care Team Providers Care Active Directory Architect Name Role Phone System, Provider Not [...] release of HIV test results or diagnoses. [id number] Health Encounter Details Date Type Department Care Team (Late st Contact Info) Description 10/03/2025 Chart Note [facility] Kidney Transplant at [address] [address] Ailin Wells Organ: Liver Social History Tobacco Use Types Packs/Day Years [...] encounter Progress Notes * Ailin Wells - 10/03/2025 4:36 PM EST Organ: Liver Patient [place] Citizen: Yes Patient [place]: No Patient is Minor Children in the home: no Patient is retired, spouse works FT Income:$11k/mnth combined Primary Ins: [place] BCBS Insured:self Secondary Ins: N/A COBRA: No- insurance plan is paid by previous employer as part of alf package Eligible for short/[facility] disability: N/A Disability due to: n/A Travel/Lodging: no No Medicare: Will be eligible in January of 2026. Provided RetireMed info Discussed Medication List and Coverage: Yes Patient will need medications from [facility] post txp:unknown Recipient needs cleared prior to donor being evaluated:no Evaluation for patients/donors need to be done at [facility] Obtained signature on benefits sheets and financial consent: mailed to patient documented in this encounter Plan of Treatment Not on file documented as of this encounter Visit Diagnoses Not on filedocumented in this encounter Additional Health Concerns Assessment Noted Time PHQ-9 Depression Total Score: 8 09/10/20 25 11:09 AM EDT documented as of this encounter Care Teams Active Directory Architect Relationship Specialty Start Date End Date System, Provider Not In PCP - General 09/10/25 documented as of this encounter
--- OUTSIDE RECORDS SUMMARY | 2025-10-08 07:16 | XMS_ITS | Encounter Summary ---
Author Organization [facility] Address [address] [place] [address] Care Team Providers Care Educational Consultant Name Role Phone System, Provider Not [...] release of HIV test results or diagnoses. [id number] Health Encounter Details Date Type Department Care Team (Late st Contact Info) Description 10/03/2025 Hospital Encounter [address] [place] [address] Vani Drew MD [facility] Liver/[place] [address] Social History Tobacco Use Types Packs/Day Years [...] documented as of this encounter Care Teams Educational Consultant Relationship Specialty Start Date End Date System, Provider Not In PCP - General 09/10/25 documented as of this encounter
--- OUTSIDE RECORDS SUMMARY | 2025-10-08 07:16 | XMS_ITS | Encounter Summary ---
[facility] Address [address] [place] [address] Care Team Providers Care Security Guard Supervisor Name Role Phone KaronUrban Hosea CAMARA Primary Care Provider [phone] Encounter Details Date Type Department Care Team (Late st Contact Info) Description 10/14/2023 Telephone [facility] GASTROENTEROLOGY [address] [facility] [address] [place] [address] Ruma Hernández, INSTRUCTOR WARPER 17[address] [facility] [address] [place], [place] [id number] Social History Tobacco Use Types Packs/Day Years [...] on filedocumented in this encounter Care Teams Security Guard Supervisor Relationship Specialty Start Date End Date Urban Brantley DO [address] [place] [address] PCP - General Internal Medicine 03/22/23 documented as of this encounter
--- OUTSIDE RECORDS SUMMARY | 2025-10-08 07:16 | XMS_ITS | Encounter Summary ---
Author Organization [facility] Address [address] [place] [address] Care Team Providers Care Fur Cutting Machine Operator Name Role Phone System, Provider [...] release of HIV test results or diagnoses. [id number] Health Encounter Details Date Type Department Care Team (Late st Contact Info) Description 09/25/2025 Chart Note [facility] Liver Transplant at [address] [address] Chapito Alcantar RN UNOS VERIFICATION CHECK FORM Social History Tobacco Use Types Packs/Day Years [...] Notes * Chapito Alcantar RN - 09/25/2025 3:31 PM EST UNOS VERIFICATION CHECK FORM First Name aw Last Name aw Middle Initial na Date of aw SS# aw Center ID# (MRN) aw ABO x 2 aw/aw I have verified the two (2) blood type results for this candidate are the same blood type and matchthe results reported in UNet. Listing date in Epic aw And UNOS match Listing date notification aw letter match Epic and UNOS Transplant Consents on file aw Physical Capacity aw Working for Income aw Multidisciplinary Team documentation Initial Hepatology assessment aw knockout worker within the last year aw Dietitian within the last year aw Finance within the last year aw Pharmacy within the last year aw Initial surgery assessment aw RN coordinator EDU documentation aw Book marked labs/pertinent data (Regulatory) aw * Cori [place] MA - 09/25/2025 3:31 PM EST UNOS VERIFICATION CHECK FORM First Name nlc Last Name nlc Middle Initial N/a Date of nlc SS# nlc Center ID# (MRN) nlc ABO x 2 nlc/nlc I have verified the two (2) blood type results for this candidate are the same blood type and matchthe results reported in UNet. Listing date in Epic nlc And UNOS match Listing date notification nlc letter match Epic and UNOS Transplant Consents on file nlc Physical Capacity nlc Working for Income [facility] Multidisciplinary Team documentation Initial Hepatology assessment nlc knockout worker within the last year nlc Dietitian within the last year nlc Finance within the last year nlc Pharmacy within the last year nl Initial surgery assessment nlc RN coordinator EDU documentation nlc Book marked labs/pertinent data (Regulatory) [facility] documented in this encounter Plan of Treatment Not on file documented as of this encounter Procedures Procedure Name Priority Date/Time Associated Diagnosis Comments ABO/RH Routine 04/11/2024 documented in this encounter Results * ABO/Rh (04/11/2024) Rh Type Positive ABO Grouping A Blood Historical Provider BLOOD BANK TEST ORDERABLE S Final Result documented in this encounter Visit Diagnoses Not on filedocumented in this encounter Additional Health Concerns Assessment Noted Time PHQ-9 Depression Total Score: 8 09/10/20 25 11:09 AM EDT documented as of this encounter Care Teams Fur Cutting Machine Operator Relationship Specialty Start Date End Date System, Provider Not In PCP - General 09/10/25 documented as of this encounter
--- OUTSIDE RECORDS SUMMARY | 2025-10-08 07:16 | XMS_ITS | Encounter Summary ---
[facility] Address [address] [place] [address] Care Team Providers Care Sign Out Clerk Name Role Phone KaronUrban Hosea CAMARA Primary Care Provider [phone] Encounter Details Date Type Department Care Team (Late st Contact Info) Description 10/14/2023 Telephone [facility] GASTROENTEROLOGY 17[address] [facility] 202 [place] [address] Ruma Hernández, EQUINE INTERN 1780 [facility] 202 [place], [place] [phone] Social History Tobacco Use Types Packs/Day Years [...] on filedocumented in this encounter Care Teams Sign Out Clerk Relationship Specialty Start Date End Date Urban Brantley DO [address] [place] [address] PCP - General Internal Medicine 03/22/23 documented as of this encounter
--- OUTSIDE RECORDS SUMMARY | 2025-10-08 07:16 | XMS_ITS ---
Author Organization Unknown ENCOUNTERS Encounter Performer Location Date Diagnosis Diagnosis Status Inpatient [place] [address] [place] [address] [id number] [facility] Outpatient [address] [place] [address] [id number] Emergency [place] [address] [place] [address] [id number] A Pre Admit [address] [place] [address] [id number] Pre Admit [address] [place] [address] [id number] Emergency [place] [address] [place] [address] [id number] [facility] *Note: Encounters from your own facility or health system may be excluded. Allergies, Adverse Reactions, Alerts Allergen Type Severity Identification Date lisinopril drug allergy 1 [id number] atorvastatin drug allergy 3 [id number] Medications Name Date Quantity Days Supplied GPI Number
--- OUTSIDE RECORDS SUMMARY | 2025-10-08 07:16 | XMS_ITS | Encounter Summary ---
Author Organization [facility] Address [address] [place] [address] Care Team Providers Care Senior Sql Server Developer Name Role Phone System, Provider Not In [...] release of HIV test results or diagnoses. [id number] Health Encounter Details Date Type Department Care Team (Late st Contact Info) Description 09/20/2025 Telephone [facility] Liver Transplant at [address] [address] Cori Dover MA Social History Tobacco Use [...] Progress Notes * Cori Dover MA - 09/20/2025 10:45 AM EST Spoke with patient to get patient scheduled with Dr. Reaves for follow up, she stated that the patient should be discharged today and was needing a follow up appointment. Was not able to get in contact with Debora whom originally called to get scheduled. However I called the patients hospital room and the stated she would relay the information to the nurse. * Cori Dover MA - 09/20/2025 10:29 AM EST [facility] called to get patient scheduled for a follow up visit with Dr. Reaves. documented in this encounter Plan of Treatment Not on file documented as of this encounter Visit Diagnoses Not on filedocumented in this encounter Additional Health Concerns Assessment Noted Time PHQ-9 Depression Total Score: 8 09/10/20 25 11:09 AM EDT documented as of this encounter Care Teams Senior Sql Server Developer Relationship Specialty Start Date End Date System, Provider Not In PCP - General 09/10/25 documented as of this encounter
--- OUTSIDE RECORDS SUMMARY | 2025-10-08 07:16 | XMS_ITS | Encounter Summary ---
Author Organization [facility] Address [address] [place] [address] Care Team Providers Care Wood Fence Erector Name Role Phone Unknown, Attending Provider Primary [...] release of HIV test results or diagnoses. [id number] Reason for Referral * Imaging/Cardiovascular Scan (Routine) - New Request Specialty Diagnoses / Procedures Referred By Gianna reyes Referred To Contact Radiology Procedures CT Abdomen and or Pelvis Outside Exam System, Provider Not In [address] [address] Referral ID Status Reason Start Date Expiration Date V isits Requested Visits Authorized [id number] New Request 09/08/2025 03/07/2026 1 1 Encounter Details Date Type Department Care Team (Late st Contact Info) Description 03/14/2025 Orders Only EXTERNAL PROV RESULTS [address] [place] [address] System, Provider Not In Social History Tobacco [...] on filedocumented in this encounter Care Teams Wood Fence Erector Relationship Specialty Start Date End Date Unknown, Attending Provider PCP - General 08/29/2508/16 System, Provider Not In PCP - General 09/10/25 documented as of this encounter
--- OUTSIDE RECORDS SUMMARY | 2025-10-08 07:16 | XMS_ITS | Encounter Summary ---
Author Organization [facility] Address [address] [place] [address] Care Team Providers Care Home Hospice Rn Name Role Phone System, Provider Not In [...] release of HIV test results or diagnoses. [id number] Health Encounter Details Date Type Department Care Team (Late st Contact Info) Description 09/25/2025 Chart Note [facility] Kidney Transplant at [address] [address] Ailin Wells Authorization for listing Social History Tobacco Use Types Packs/Day Years [...] encounter Progress Notes * Ailin Wells - 09/25/2025 8:42 AM EST Authorization for listing Organ: Liver Insurance Co: [facility] Central Office Operator Supervisor: Serena Carter ext [phone] Authorization # [id number] Dates of Service: 09/24/2025-09/23/2026 Additional Information: Scanned to PFS documented in this encounter Plan of Treatment Not on file documented as of this encounter Visit Diagnoses Not on filedocumented in this encounter Additional Health Concerns Assessment Noted Time PHQ-9 Depression Total Score: 8 09/10/20 11:09 AM EDT documented as of this encounter Care Teams Home Hospice Rn Relationship Specialty Start Date End Date System, Provider Not In PCP - General 09/10/25 documented as of this encounter
--- OUTSIDE RECORDS SUMMARY | 2025-10-08 07:16 | XMS_ITS | Encounter Summary ---
Author Organization [facility] Address [address] [place] [address] Care Team Providers Care Vamp Maker Name Role Phone System, Provider Not [...] release of HIV test results or diagnoses. [id number] Health Encounter Details Date Type Department Care Team (Late st Contact Info) Description 09/24/2025 Chart Note [facility] Kidney Transplant at [address] [phone] Ailin Wells Called local office again to get status of listing auth request. Spoke to Social History Tobacco Use Types Packs/Day Years [...] encounter Progress Notes * Ailin Wells - 09/24/2025 9:10 AM EST Called local office again to get status of listing auth request. Spoke to Mili. She stated it was received and assigned to Serena Carter. It is due by this Wednesday, 09/26. Pending response documented in this encounter Plan of Treatment Not on file documented as of this encounter Visit Diagnoses Not on filedocumented in this encounter Additional Health Concerns Assessment Noted Time PHQ-9 Depression Total Score: 8 09/10/20 11:09 AM EDT documented as of this encounter Care Teams Vamp Maker Relationship Specialty Start Date End Date System, Provider Not In PCP - General 09/10/25 documented as of this encounter
--- OUTSIDE RECORDS SUMMARY | 2025-10-08 07:16 | XMS_ITS | Encounter Summary ---
Author Organization [facility] Address [address] [place] [id number] Care Team Providers Care Hydroelectric Plant Electrical Engineer Name Role Phone System, Provider Not [...] release of HIV test results or diagnoses. [id number] Health Encounter Details Date Type Department Care Team (Late st Contact Info) Description 10/03/2025 Telephone [facility] Liver Transplant at [address] [address] Pb Sy, RN Social History Tobacco Use Types Packs/Day [...] Encounter - Pb Sy RN - 10/03/2025 7:32 PM EST Patients potential Txp cancelled due to Donor not expiring. Updated patients family as well as Bed Board, OR Charge, Nursing Mill Washer, blood bank and Sicu charge. documented in this encounter Plan of Treatment Not on file documented as of this encounter Visit Diagnoses Not on filedocumented in this encounter Additional Health Concerns Assessment Noted Time PHQ-9 Depression Total Score: 8 09/10/20 11:09 AM EDT documented as of this encounter Care Teams Hydroelectric Plant Electrical Engineer Relationship Specialty Start Date End Date System, Provider Not In PCP - General 09/10/25 documented as of this encounter
--- OUTSIDE RECORDS SUMMARY | 2025-10-08 07:16 | XMS_ITS | Encounter Summary ---
Author Organization Healthcare Address [address] [place] [address] Care Team Providers Care Gas Distribution Supervisor Name Role Phone Ruma Hernández PARTS ADVISOR Unavailable [phone] Chris Medel MD Primary Care Provider [phone] Encounter Details Date Type Department Care Team (Late st Contact Info) Description 06/14/2025 Results Follow-Up [facility] [address] [place] [id number] Meaghan Le, RN [facility] LIVER [id number] [address] [place] [address] Social History Tobacco Use Types Packs/Day Years [...] do you attend [facility] or denominational services? More than 4 times per year 02/19/2025 Do you belong to any clubs o r organizations such as baptist groups, unions, [employer] or athletic groups, or school groups? Yes [...] How often do you attend chur or denominational services? More than 4 times [...] at all 06/15/2025 [facility] - Occupational Stress Questionnaire Answer Date [...] any time in the past 12 m [facility], were you homeless or living in [...] drink first t luisa in the morning (EYE-DULL COAT MILL OPERATOR) to steady your nerves or to get rid of a hangover? 0 06/14/2025 CAGE Questionnaire Score 0 025 Utilities Answer Date Recorded In the past 12 months has th e [employer], gas, oil, or water [employer] threatened to shut off services in your [...] Description 10/18/2025 4:20 PM EST Office Visit [facility] [address] , [address] [place] [address] Moustapha Katz MD [address] [facility] [address] [place] [address] 11/27/2025 3:45 PM EST Office Visit Medical Office Building [facility] [address], [address] [place] [address] Suhail Brock MD [address] [place] [address] 12/12/2025 8:30 AM EST Clinical Support [facility] [place] [address] [facility] [address] [place] [address] 12/12/2025 10:00 AM EST Office Visit [facility] [address] [facility] [address] [place] [address] Portia Maguire MD [address] [facility] [address] [place] [address] documented as of this encounter Visit Diagnoses [...] documented as of this encounter Care Teams Gas Distribution Supervisor Relationship Specialty [place] [id number] PCP - General 03/14/25 Ruma Hernández APRN [address] [place] [address] Referring Physician Gastroenterology 07/30/23 documented as of this encounter
--- OUTSIDE RECORDS SUMMARY | 2025-10-08 07:16 | XMS_ITS | Encounter Summary ---
Author Organization [facility] Address [address] [place] [address] Care Team Providers Care Programmer Analyst Consultant Name Role Phone System, Provider Not [...] release of HIV test results or diagnoses. [id number] Health Encounter Details Date Type Department Care Team (Late st Contact Info) Description 09/20/2025 Chart Note [facility] Liver Transplant at [address] [address] Chapito Alcantar RN Spoke with patient's spouse and updated her on current bed situation. Social History Tobacco Use Types Packs/Day Years [...] Progress Notes * Chapito Alcantar RN - 09/20/2025 8:11 AM EST Spoke with patient's spouse and updated her on current bed situation. Patient is feeling better andis wondering if a transfer is necessary. States patient's asitic fluid still has not been checked for SBP. Advised spouse to continue current care under [facility] and if they feel a tranfers isn't necessary, they will call and confirm with our team. Patient's spouse voiced an understanding and will follow up as needed. documented in this encounter Plan of Treatment Not on file documented as of this encounter Visit Diagnoses Not on filedocumented in this encounter Additional Health Concerns Assessment Noted Time PHQ-9 Depression Total Score: 8 09/10/20 11:09 AM EDT documented as of this encounter Care Teams Programmer Analyst Consultant Relationship Specialty Start Date End Date System, Provider Not In PCP - General 09/10/25 documented as of this encounter
--- OUTSIDE RECORDS SUMMARY | 2025-10-08 07:16 | XMS_ITS | Clinical Summary ---
Author Organization [facility] Address [address] [place] [address] Care Team Providers Care Sound Editor Name Role Phone ToniUrban morataya DO Primary Care Provider [phone] Allergies Active Allergy Reactions Criticality Noted Date [...] Date Last Done Comments LIPID PANEL 1961 TDAP/TD VACCINES (1 - Tdap) 02/02/1980 COLOGUARD 2006 COLON CANCER SCREENING 5 YEA R SIGMOIDOSCOPY 2006 CT COLONOGRAPHY 2006 FECAL OCCULT BLOOD TEST 2006 FIT Testing (1 year) 2006 Pneumococcal Vaccine 50+ (1 of 1 - PCV) 2011 ZOSTER VACCINE (1 of 2) 2011 ANNUAL [...] Results * SCANNED - COLONOSCOPY (03/31/2023) Corby Ecehverria MD CHART REVIEW T ABS Final Result from Last 3 Months or Most Recently Relevant to Health Maintenance Insurance [facility] PPO Care Teams Sound Editor Relationship Specialty Start Date End Date Urban Brantley DO [address] [place], [place] [id number] PCP - General Internal Medicine 03/22/23
--- OUTSIDE RECORDS SUMMARY | 2025-10-08 07:16 | XMS_ITS | Clinical Summary ---
Author Organization [facility] Address [address] [place] [address] Care Team Providers Care Digital Forensic Analyst Name Role Phone Ruma Hernández SENIOR CYTOGENETICS LABORATORY DIRECTOR Unavailable [phone] Chris Medel MD Primary Care Provider [phone] Allergies Active Allergy Reactions Criticality Noted Date Comments Lisinopril Cough Low 09/15/2021 Medications carvedilol (Coreg) 3.125 MG tabletIndicatio ns:Cirrhosis of liver with ascites, unspecified hepatic cirrhosis type Take 1 tablet (3.125 mg) by mouth 2 (two) times a day with meals. 60 tablet 11 09/13/20 24 Active ergocalciferol (Vitamin D-2) 1.25 MG (53395 UT) capsule Take 1 capsule by mouth [...] 180 tablet 3 03/14/20 25 026 Active Additional Information Patient taking differently: 20 mgOral Daily, Reported on 09/12/2025 omeprazole (PriLOSEC) [address] capsuleIndicati ons:Cirrhosis of liver with ascites, unspecified hepatic cirrhosis type Take 2 capsules by mouth daily. 180 capsule 3 03/14/20 25 026 Active spironolactone (Aldactone) 50 MG tabletIndicatio ns:Bilateral leg edema,Cirrhosis of liver with ascites, unspecified hepatic cirrhosis type,Other ascites Take 3 tablets by mouth daily. 270 each 1 06/25/20 25 026 Active Additional Information Patient taking differently: 50 mgOral Daily, Reported on 09/12/2025 calcitriol (Rocaltrol) 0.25 MCG capsule Take 1 capsule by mouth 5 times a week. Once daily Wednesday through Wednesday 20 capsule 5 08/08/20 25 Active Xifaxan 550 MG tabletIndicatio ns:Pre-liver transplant, listed,End-stag e liver disease (CMS/HCC) TAKE ONE (1) TABLET BY MOUTH TWICE DAILY 180 tablet 3 10/03/20 25 Active Xifaxan 550 MG tablet Take 1 tablet by mouth 2 times a day. 01/16/20 25 025 Discontinued Active Problems Problem Noted [...] Encounters Date Type Department Care Team Description 10/02/2025 Refill [facility] [address] [place] [phone] Portia Maguire MD Pre-liver transplant, listed (Primary Dx); End-stage liver disease (CMS/HCC) 09/12/2025 10:00 AM EDT Office Visit [facility] [place] [address] [place] [phone] Portia Maguire MD Pre-liver transplant, listed (Primary Dx); Cirrhosis of liver with ascites, unspecified hepatic cirrhosis type; Other ascites; Alcoholic cirrhosis, unspecified whether ascites present; Hemochromatosis associated with compound heterozygous mutation in HFE gene; Alcohol use disorder, moderate, in sustained remission; Hepatic encephalopathy (CMS/HCC) 09/12/2025 8:47 AM EDT - 09/12/2025 11:59 PM EDT Hospital Encounter [facility] [address] [place] [address] Pre-liver transplant, listed Discharge Disposition: Home or Self Care 09/12/2025 Results Follow-Up [facility] [address] [place] [phone] Meaghan Le, SILVIO 09/12/2025 Travel 09/11/2025 Travel 09/05/2025 Orders Only [facility] [address] [place] [phone] Meaghan Le, SILVIO Pre-liver transplant, listed (Primary Dx) 08/31/2025 Results Follow-Up [facility] [place] [address] [place] [phone] Meaghan Le, SILVIO 08/29/2025 Orders Only [facility] [address] [place] [phone] Provider, Historical 08/20/2025 Results Follow-Up [facility] [address] [place] [phone] Meaghan Le RN 08/01/2025 Results Follow-Up [facility] [address] [place] [phone] Meaghan Le, RN 07/19/2025 Results Follow-Up [facility] [place] [address] [place] [phone] Meaghan Le RN 07/11/2025 10:30 AM EDT Office Visit [facility] [address] [facility] [address] [place] [address] Portia Maguire MD Cirrhosis of liver with ascites, unspecified hepatic cirrhosis type (CMS/HCC) (Primary Dx); Other ascites; Pre-liver transplant, listed; Alcoholic cirrhosis, unspecified whether ascites present (CMS/HCC); Hemochromatosis associated with compound heterozygous mutation in HFE gene; Alcohol use disorder, moderate, in sustained remission 07/11/2025 9:30 AM EDT Social Work [facility] [address] [facility] [address] [place] [address] Liliane Jacobs LCSW 07/11/2025 Travel from Last 3 Months Immunizations Immunization [...] week 06/15/2025 How often do you attend [place] [...] and heating? 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) to steady your nerves or to [...] 10/18/2025 4:20 PM EST Office Visit [facility] [address], [address] [place] [address] Moustapha Katz MD [address] [place] [address] 11/27/2025 3:45 PM EST Office Visit Medical Office Building Urology [address], [address] [place] [address] Suhail Brock MD [address] [place] [address] 12/12/2025 8:30 AM EST Clinical Support [facility] [place] [facility] [address] [place] [address] 12/12/2025 10:00 AM EST Office Visit [facility] [place] [facility] [address] [place] [address] Portia Maguire MD [address] [place] [address] Health Maintenance Due Date Last Done Comments [facility]-/Child/Adol SDOH Screenings 1960 [facility]-Hepatitis A Vaccines (1 of 2 - Risk 2-dose series) 02/02/1980 [facility]-Pneumococcal Vaccine: 50+ Years (1 of 2 - PCV) 02/02/1980 CT Colonography 2006 Colonoscopy 2006 FIT-DNA 2006 FIT 2006 FOBT 2006 Sigmoidoscopy 2006 [facility]-Colorectal Cancer Screening 2006 [facility]-Zoster Vaccines (1 of 2) 2011 [facility]-RSV Vaccine: 60+ Years or (1 - Risk 60-74 years 1-dose series) 2021 XFI-ARPUU-30 Vaccine ( - season) 2025 [facility]-Influenza Vaccine [...] EDT Pre-liver transplant, patient on transplant list HEPATITIS C ANTIBODY W/REFLEX TO HCV QUANT [...] are consistent with and integrated into the [place] [employer] Liver Diseases [...] using the following sequences: coronal single shot [id number] fast spin echo, axial T2 weighted sequences [...] are consistent with and integrated into the [place] Associationfor the Study of Liver Diseases (AASLD) [...] <20 <20 ng/mL 09/14 7:16 AM EDT [facility] Alpha OH Midazolam <20 <20 ng/mL 2024 7:16 AM EDT [facility] Alpha OH Triazolam <20 <20 ng/mL 2024 7:16 AM EDT [facility] Alprazolam <10 <10 ng/mL 09/14/2025 7:16 AM EDT [facility] Aminoclonazepam <20 <20 ng/mL 7:16 AM EDT [facility] Amphetamine <50 <50 ng/mL 09/14/2025 7:16 AM EDT [facility] Benzoylecgonine <50 <50 ng/mL 7:16 AM EDT [facility] Buprenorphine <10 <10 ng/mL 09/14/2025 7:16 AM EDT [facility] Buprenorphine Glucuronide <50 <50 ng/mL 09/14/2025 7:16 AM EDT [facility] Butalbital <50 <50 ng/mL 09/14/2025 7:16 AM EDT [facility] 9 Carboxy THC <10 <10 ng/mL 09/14/2025 7:16 AM EDT [facility] 9 Carboxy THC Glucuronide <25 <25 ng/mL 09/14/2025 7:16 AM EDT [facility] Clonazepam <10 <10 ng/mL 09/14/2025 7:16 AM EDT [facility] Codeine <50 <50 ng/mL 09/14/2025 7:16 AM EDT [facility] Codeine Glucuronide <50 <50 ng/mL 09/14 7:16 AM EDT [facility] Cyclobenzaprine <50 <50 ng/mL 7:16 AM EDT [facility] Desmethyl Tramadol <50 <50 ng/mL 2024 7:16 AM EDT [facility] Diazepam <10 <10 ng/mL 09/14/2025 7:16 AM EDT [facility] EDDP - Methadone Metabolite <50 <50 ng/mL 09/14/2025 7:16 AM EDT [facility] Fentanyl <1 <1 ng/mL 09/14/2025 7:16 AM EDT [facility] Hydrocodone <50 <50 ng/mL 09/14/2025 7:16 AM EDT [facility] Hydromorphone <50 <50 ng/mL 09/14/2025 7:16 AM EDT [facility] Hydromorphone Glucuronide <50 <50 ng/mL 09/14/2025 7:16 AM EDT [facility] Lorazepam <20 <20 ng/mL 09/14/2025 7:16 AM EDT [facility] Lorazepam Glucuronide <50 <50 ng/mL 09/14/2025 7:16 AM EDT [facility] MDA <50 <50 ng/mL 09/14/2025 7:16 AM EDT [facility] MDMA <50 <50 ng/mL 09/14/2025 7:16 AM EDT [facility] Meperidine <50 <50 ng/mL 09/14/2025 7:16 AM EDT [facility] Methadone <50 <50 ng/mL 09/14/2025 7:16 AM EDT [facility] Methamphetamine <50 <50 ng/mL 7:16 AM EDT [facility] Methylphenidate <50 <50 ng/mL 7:16 AM EDT [facility] 6 Monoacetyl morphine <10 <10 ng/mL 09/14/2025 7:16 AM EDT [facility] Morphine <50 <50 ng/mL 09/14/2025 7:16 AM EDT [facility] Morphine Glucuronide <50 <50 ng/mL 08/17 7:16 AM EDT [facility] Naloxone <50 <50 ng/mL 09/14/2025 7:16 AM EDT [facility] Naloxone Glucuronide <50 <50 ng/mL 08/17 7:16 AM EDT [facility] Norbuprenorphine <10 <10 ng/mL 09/14/20 7:16 AM EDT [facility] Norbuprenorphine Glucuronide <50 <50 ng/mL 09/14/2025 7:16 AM EDT [facility] Nordiazepam <20 <20 ng/mL 09/14/2025 7:16 AM EDT [facility] Norfentanyl <2 <2 ng/mL 09/14/2025 7:16 AM EDT [facility] Normeperidine <50 <50 ng/mL 09/14/2025 7:16 AM EDT [facility] PCP Quant, Ur <50 <50 ng/mL 09/14/2025 7:16 AM EDT [facility] Phenobarbital <50 <50 ng/mL 09/14/2025 7:16 AM EDT [facility] Oxazepam <20 <20 ng/mL 09/14/2025 7:16 AM EDT [facility] Oxazepam Glucuronide <50 <50 ng/mL 08/17 7:16 AM EDT [facility] Oxycodone <50 <50 ng/mL 09/14/2025 7:16 AM EDT [facility] Oxymorphone <50 <50 ng/mL 09/14/2025 7:16 AM EDT [facility] Oxymorphone Glucuronide <50 <50 ng/mL 09/14/2025 7:16 AM EDT [facility] Secobarbital <50 <50 ng/mL 09/14/2025 7:16 AM EDT [facility] Tramadol <50 <50 ng/mL 09/14/2025 7:16 AM EDT [facility] Temazepam <20 <20 ng/mL 09/14/2025 7:16 AM EDT [facility] Temazepam Glucuronide <50 <50 ng/mL 09/14/2025 7:16 AM EDT [facility] Urine Urine specimen obtained by clean catch procedure / Unknown Non-blood Collection / Unknown 09/12/2025 7:55 AM EDT 09/12/2025 8:51 AM EDT Narrative [facility] - 09/14/2025 7:16 AM EDT [...] laboratory. Test performed by LC-MS/MS at the [facility]. This test was developed and its performance characteristics determined by [facility]. It has not been cleared or approved by the FDA. The laboratory is regulated under CLIA as qualified to perform high-complexity testing. This test is used for clinical purposes. us Portia Maguire MD LAB URINE ORDERABLES Nadia crockett Result [facility] [address] [place] [address] * Alpha Fetoprotein, Serum (09/12/2025 7:55 AM EDT) Alpha Fetoprotein, Serum <2.3 <10.0 ng/mL 09/12/2025 10:18 AM EDT [facility] Blood Venous blood specimen / Unknown Venipuncture / Unknown 09/12/2025 7:55 AM EDT 09/12/2025 8:46 AM EDT Narrative [facility] - 09/12/2025 10:18 AM EDT Performed by Stacey electrochemiluminescent immunoassay which is traceable to the [address] [place] [address] IRP WHO Reference standard 72/255. Results obtained with different test methods or kits cannot be used interchangeably. Portia Maguire MD LAB BLOOD ORDERABLES Nadia l Result Performing Organization Address [facility] de Phone Number [facility] [address] [place] [address] * Nicotine Cotinine Metabolite (09/12/2025 7:55 AM EDT) Only the most recent of2 resultswithin the time period is included. NICOTINE <5 <5 ng/mL 09/14/2025 10:24 AM EDT [facility] Cotinine <5 <5 ng/mL 09/14/2025 10:24 AM EDT [facility] Blood Venous blood specimen / Unknown Venipuncture / Unknown 09/12/2025 7:55 AM EDT 09/12/2025 8:46 AM EDT Narrative [facility] - 09/14/2025 10:24 AM EDT Testing performed by LC-MS/MS at the [facility] Special Chemistry/Toxicology Laboratory. This test was developed and its performance characteristics determined by [facility]. This assay has not been cleared by the FDA. The laboratory is regulated under CLIA as qualified to perform high-complexity testing. This test is used for clinical purposes. Portia Maguire MD LAB BLOOD ORDERABLES Nadia l Result Performing Organization Address City/[facility] Co de Phone Number [facility] [address] [place] [address] * Alcohol Urine (09/12/2025 7:55 AM EDT) Only the most recent of2 resultswithin the time period is included. Alcohol Urine Negative Negative 09/12/2025 1:41 PM EDT [facility] Urine Urine specimen obtained by clean catch procedure / Unknown Non-blood Collection / Unknown 09/12/2025 7:55 AM EDT 09/12/2025 8:51 AM EDT Narrative [facility] - 09/12/2025 1:41 PM EDT The correlation between urine and serum ethanol concentration is highly variable. Test performed by Gas Chromatography at the [facility]. This test was developed and its performance characteristics determined by [facility]. It has not been cleared or approved by the FDA.The laboratory is regulated under CLIA as qualified to perform high-complexity testing. This test is used for clinical purposes only. The correlation between urine and serum ethanol concentration is highly variable. Test performed by Gas Chromatography at the [facility]. This test was developed and its performance characteristics determined by [facility]. It has not been cleared or approved by the FDA.The laboratory is regulated under CLIA as qualified to perform high-complexity testing. This test is used for clinical purposes only. Portia Maguire MD LAB URINE ORDERABLES Nadia crockett Result Performing Organization Address City/State/[facility] Co de Phone Number [facility] [address] [place] [address] * Comprehensive Urine Drug Screening, Qualitative Assay, >= 27 Drug Classes (09/12/2025 7:55 AM EDT) Only the most recent of2 resultswithin the time period is included. Acetaminophen Negative Negative 09/16/2025 3:50 AM EST [facility] Alprazolam Negative Negative 09/16/2025 3:50 AM EST [facility] Amantadine Negative Negative 09/16/2025 3:50 AM EST [facility] Amitriptyline Negative Negative 09/16/2025 3:50 AM EST [facility] Amphetamine Negative Negative 09/16/2025 3:50 AM EST [facility] Atenolol Negative Negative 09/16/2025 3:50 AM EST [facility] Benzoylecgonine Negative Negative 3:[address] [facility] Bisoprolol Negative Negative 09/16/2025 3:[address] [facility] Bupropion Negative Negative 09/16/2025 3:[address] [facility] Butalbital Negative Negative 09/16/2025 3:[address] [facility] Carbamazepine Negative Negative 09/16/2025 3:[address] [facility] Carisoprodol Negative Negative 09/16/2025 3:50 AM EST [facility] Chlorpheniramine Negative Negative 09/16/20 3:50 AM EST [facility] Citalopram Negative Negative 09/16/2025 3:50 AM EST [facility] Clindamycin Negative Negative 09/16/2025 3:50 AM EST [facility] Clonidine Negative Negative 09/16/2025 3:50 AM EST [facility] Clopidogrel / Ticlopidine Negative Negative 09/16/2025 3:50 AM EST [facility] Cocaethylene Negative Negative 09/16/2025 3:50 AM EST [facility] Cocaine Negative Negative 09/16/2025 3:50 AM EST [facility] Codeine Negative Negative 09/16/2025 3:50 AM EST [facility] Cyclobenzaprine Negative Negative 3:50 AM EST [facility] Desvenlafaxine Negative Negative 09/16/2025 3:50 AM EST [facility] Dextromethorphan Negative Negative 09/16/20 3:50 AM EST [facility] Diazepam Negative Negative 09/16/2025 3:50 AM EST [facility] Diltiazem Negative Negative 09/16/2025 3:[address] [facility] Diphenhydramine Negative Negative 3:50 AM EST [facility] Doxepine Negative Negative 09/16/2025 3:50 AM EST [facility] Doxylamine Negative Negative 09/16/2025 3:50 AM EST [facility] EDDP-Methadone metabolite Negative Negative 09/16/2025 3:50 AM EST [facility] Fentanyl Negative Negative 09/16/2025 3:50 AM EST [facility] Fluconazole Negative Negative 09/16/2025 3:50 AM EST [facility] Fluoxetine Negative Negative 09/16/2025 3:50 AM EST [facility] Guaifenesin Negative Negative 09/16/2025 3:50 AM EST [facility] Haloperidol Negative Negative 09/16/2025 3:50 AM EST [facility] Heroin/6-MARY Negative Negative 09/16/2025 3:50 AM EST [facility] Hydrocodone Negative Negative 09/16/2025 3:50 AM EST [facility] Hydroxyzine / Cetirizine metabolite Negative Negative 09/16/2025 3:50 AM EST [facility] Ibuprofen Negative Negative 09/16/2025 3:50 AM EST [facility] Imipramine Negative Negative 09/16/2025 3:50 AM EST [facility] Ketamine Negative Negative 09/16/2025 3:50 AM EST [facility] Labetolol Negative Negative 09/16/2025 3:50 AM EST [facility] Lamotrigine Negative Negative 09/16/2025 3:50 AM EST [facility] Levetiracetam Negative Negative 09/16/2025 3:50 AM EST [facility] Lidocaine Negative Negative 09/16/2025 3:50 AM EST [facility] MDA Negative Negative 09/16/2025 3:50 AM EST [facility] MDMA Negative Negative 09/16/2025 3:50 AM EST [facility] Memantine Negative Negative 09/16/2025 3:50 AM EST [facility] Meperidine Negative Negative 09/16/2025 3:50 AM EST [facility] Meprobamate Negative Negative 09/16/2025 3:50 AM EST [facility] Metaxalone Negative Negative 09/16/2025 3:50 AM EST [facility] Methamphetamine Negative Negative 3:50 AM EST [facility] Methocarbamol Negative Negative 09/16/2025 3:50 AM EST [facility] Methylecgonine Negative Negative 09/16/2025 3:50 AM EST [facility] Metoclopramide Negative Negative 09/16/2025 3:[address] [facility] Metoprolol Negative Negative 09/16/2025 3:[address] [facility] Metronidazole Negative Negative 09/16/2025 3:[address] [facility] Midazolam Negative Negative 09/16/2025 3:[address] [facility] Midazolam Metabolite Negative Negative 12/2024 3:[address] [facility] Mirtazapine Negative Negative 09/16/2025 3:[address] [facility] Misc Test Result Negative Negative 09/16/20 3:[address] [facility] Naproxen Negative Negative 09/16/2025 3:[address] [facility] Nefazodone Negative Negative 09/16/2025 3:50 AM EST [facility] Norfentanyl Negative Negative 09/16/2025 3:50 AM EST [facility] Nortriptyline Negative Negative 09/16/2025 3:[address] [facility] Ordanstron Negative Negative 09/16/2025 3:[address] [facility] Oxcarbazepine Negative Negative 09/16/2025 3:[address] [facility] Oxycodone Negative Negative 09/16/2025 3:50 AM EST [facility] Paroxethine Negative Negative 09/16/2025 3:50 AM EST [facility] Phenobarbital Negative Negative 09/16/2025 3:[address] [facility] Phentermine Negative Negative 09/16/2025 3:[address] [facility] Phenytoin Negative Negative 09/16/2025 3:[address] [facility] Primidone Negative Negative 09/16/2025 3:[address] [facility] Promethazine Negative Negative 09/16/2025 3:[address] [facility] Propofol Negative Negative 09/16/2025 3:[address] [facility] Propranolol Negative Negative 09/16/2025 3:[address] [facility] Quetiapine Negative Negative 09/16/2025 3:[address] [facility] Quinine Negative Negative 09/16/2025 3:50 AM EST [facility] Rantidine Negative Negative 09/16/2025 3:50 AM EST [facility] Sertraline Negative Negative 09/16/2025 3:50 AM EST [facility] Spironolactone Negative Negative 09/16/2025 3:50 AM EST [facility] Tizanidine Negative Negative 09/16/2025 3:50 AM EST [facility] Topiramate Negative Negative 09/16/2025 3:50 AM EST [facility] Tramadol Negative Negative 09/16/2025 3:50 AM EST [facility] Trazadone/ Trazadone metabolite Negative Negative 09/16/2025 3:50 AM EST [facility] Trimethoprim Negative Negative 09/16/2025 3:50 AM EST [facility] Valproic Acid Negative Negative 09/16/2025 3:50 AM EST [facility] Venlafaxine Negative Negative 09/16/2025 3:50 AM EST [facility] Verapamil Negative Negative 09/16/2025 3:50 AM EST [facility] Zolpidem Negative Negative 09/16/2025 3:50 AM EST [facility] Xylazine Negative Negative 09/16/2025 3:50 AM EST [facility] Urine Urine specimen obtained by clean catch procedure / Unknown Non-blood Collection / Unknown 09/12/2025 7:55 AM EDT 09/12/2025 8:51 AM EDT us Portia Maguire MD LAB URINE ORDERABLES Nadia bon Result [facility] [address] [place] [address] * (ABNORMAL) Protime-INR (09/12/2025 7:55 AM EDT) Only the most recent of7 resultswithin the time period is included. Prothrombin Time 24.0(H) 12.0 - 14.3 sec LAB COAGULATION METHOD 09/12/2025 9:03 AM EDT [facility] INR 2.1(H) 0.9 - 1.1 LAB COAGULATION METHOD 09/12/2025 9:03 AM EDT [facility] Blood Venous blood specimen / Unknown Venipuncture / Unknown 09/12/2025 7:55 AM EDT 09/12/2025 8:46 AM EDT Narrative [facility] - 09/12/2025 9:03 AM EDT OPTIMAL INR RANGES FOR PATIENT ON ORAL ANTICOAGULANT THERAPY Prevention of venous thromboembolism INR 2.0 to 3.0 In patients with heart disease: Atrial fibrillation INR 2.0 to 3.0 Valvular heart disease INR 2.0 to 3.0 Tissue heart valves INR 2.0 to 3.0 Mechanical prosthetic valves INR 2.5 to 3.5 Prevention of recurrent PR INR 2.5 to 3.5 us Portia Maguire MD LAB BLOOD ORDERABLES Nadia crockett Result [facility] [address] [place] [address] * (ABNORMAL) CBC w/o differential (09/12/2025 7:55 AM EDT) Only the most recent of6 resultswithin the time period is included. WBC Count 3.90 3.70 - 10.30 10*3/uL LAB HEMATOLOGY METHOD 09/12/2025 10:12 AM EDT [facility] RBC Count 3.06(L) 4.60 - 6.10 10*6/uL LAB HEMATOLOGY METHOD 09/12/2025 10:12 AM EDT [facility] HGB 10.3(L) 13.7 - 17.5 g/dL LAB HEMATOLOGY METHOD 09/12/2025 10:12 AM EDT [facility] HCT 31.9(L) 40.0 - 51.0 % LAB HEMATOLOGY METHOD 09/12/2025 10:12 AM EDT [facility] Platelet Count 57(L) 155 - 369 10*3/uL LAB HEMATOLOGY METHOD 09/12/2025 10:12 AM EDT [facility] MCV 104(H) 79 - 98 fL LAB HEMATOLOGY METHOD 09/12/2025 10:12 AM EDT [facility] MCH 33.7(H) 26.0 - 32.0 pg LAB HEMATOLOGY METHOD 09/12/2025 10:12 AM EDT [facility] MCHC 32.3 30.7 - 35.5 g/dL LAB HEMATOLOGY METHOD 09/12/2025 10:12 AM EDT [facility] RDW 17.3(H) 11.5 - 14.5 % LAB HEMATOLOGY METHOD 09/12/2025 10:12 AM EDT [facility] MPV 10.5 8.8 - 12.5 fL LAB HEMATOLOGY METHOD 09/12/2025 10:12 AM EDT [facility] nRBC 0.0 <=0.0 per 100 WBCs LAB HEMATOLOGY METHOD 09/12/2025 10:12 AM EDT [facility] Blood Venous blood specimen / Unknown Venipuncture / Unknown 09/12/2025 7:55 AM EDT 09/12/2025 8:51 AM EDT us Portia Maguire MD LAB BLOOD ORDERABLES Nadia crockett Result [facility] [address] [place] [address] * (ABNORMAL) Comprehensive metabolic panel (09/12/2025 7:55 AM EDT) Only the most recent of6 resultswithin the time period is included. Glucose, Plasma 96 74 - 99 mg/dL 09/12/2025 9:16 AM EDT [facility] BUN, Plasma 11 8 - 23 mg/dL 09/12/2025 9:16 AM EDT [facility] Creatinine, Plasma 0.88 0.70 - 1.20 mg/dL 09/12/2025 9:16 AM EDT [facility] BUN/Creatinine Ratio 13 09/12/2025 9:16 AM EDT [facility] Sodium, Plasma 139 136 - 145 mmol/L 09/12/2025 9:16 AM EDT [facility] Potassium, Plasma 3.8 3.6 - 4.9 mmol/L 09/12/2025 9:16 AM EDT [facility] Chloride, Plasma 109(H) 97 - 107 mmol/L 09/12/2025 9:16 AM EDT [facility] CO2, Plasma 25 22 - 29 mmol/L 09/12/2025 9:16 AM EDT [facility] Anion Gap 5(L) 6 - 16 mmol/L 09/12/2025 9:16 AM EDT [facility] Total Calcium, Plasma 8.1(L) 8.9 - 10.2 mg/dL 09/12/2025 9:16 AM EDT [facility] Total Protein 5.9(L) 6.3 - 7.9 g/dL 09/12/2025 9:16 AM EDT [facility] Albumin, Plasma 2.1(L) 3.5 - 5.2 g/dL 09/12/2025 9:16 AM EDT [facility] AST, Plasma 40 10 - 50 U/L 09/12/2025 9:16 AM EDT [facility] ALT, Plasma 32 10 - 50 U/L 09/12/2025 9:16 AM EDT [facility] Alkaline Phosphatase, Plasma 230(H) 40 - 115 U/L 09/12/2025 9:16 AM EDT [facility] Total Bilirubin, Plasma 3.7(H) 0.2 - 1.1 mg/dL 09/12/2025 9:16 AM EDT [facility] eGFRcr 96.0 mL/min/1.7 3m*2 09/12/2025 9:16 AM EDT [facility] Comment:Reported eGFRcr in m L/min/1.73m2 is based the CKD-EPI 2020 equation that does not use a race coefficient. Blood Venous blood specimen / Unknown Venipuncture / Unknown 09/12/2025 7:55 AM EDT 09/12/2025 8:46 AM EDT us Portia Maguire MD LAB BLOOD ORDERABLES Nadia crockett Result [facility] [address] [place] [address] * COMPLETE METABOLIC PROFILE (CMP) (08/29/2025 12:13 PM EDT) Historical Provider LAB BLOOD ORDERABLES Final R esult * CBC and Differential (08/29/2025 11:11 AM EDT) Blood Venous blood specimen / Unknown [facility] Provider LAB BLOOD ORDERABLES Final R esult * HIV 1 & 2 Antibody/Antigen Screen (06/14/2025 6:31 PM EDT) HIV 1 & 2 Antibody/Antigen Screen Non Reactive Non Reactive 06/14/2025 7:45 PM EDT [facility] Comment:Screening for HIV 1 & 2 antibodies, and P24 antigen is NONREACTIVE. No confirmatory testing is required. Blood Venous blood specimen / Unknown Venipuncture / Unknown 06/14/2025 6:31 PM EDT 06/14/2025 7:05 PM EDT Luis Angel Bee MD LAB BLOOD ORDERABLES Nadia l Result Performing Organization Address City/[facility]/ZIP Co de Phone Number [facility] [address] [place] [address] * Hepatitis C Antibody (06/14/2025 6:31 PM EDT) Pathologist [facility] Hepatitis C Antibody Negative Negative 06/14/2025 7:45 PM EDT [facility] Blood Venous blood specimen / Unknown Venipuncture / Unknown 06/14/2025 6:31 PM EDT 06/14/2025 7:05 PM EDT Result [facility] Luis Angel Bee MD LAB BLOOD ORDERABLES Nadia l Result [facility] [address] [place] [address] * Dexa Bone Density (06/08/2025 8:35 AM EDT) Anatomical Region Laterality Modality L-spine Radiographic Liseth ging Narrative 06/17/2025 10:07 PM EDT [facility] [address] [place] [address] DXA Bone Densitometry Report: [06/08/2025] BMD test performed using the YaData DXA System (analysis version: 14.10) manufactured by [employer]. REFERRING PROVIDER: Dr. Moustapha Katz MD CLINICAL [...] MD IM DXA PROCEDURES Final Resul t from Last 3 Months or Most Recently Relevant to Health [place] [address] ANTHEM Advance Directives Documents on File Type Date Recorded Patient Quality Systems Engineer Expl anation Power of [place]ailings Dam Laborer 07/11/2025 POA / Trudy ng Will Care Teams Digital Forensic Analyst Relationship Specialty [place] [id number] PCP - General 03/14/25 Ruma Hernández APRN [address] [facility] [address] [place] [address] Referring Physician Gastroenterology 07/30/23
--- OUTSIDE RECORDS SUMMARY | 2025-10-08 07:16 | XMS_ITS | Encounter Summary ---
Author Organization [facility] Address [address] [place] [address] Care Team Providers Care Professor Of Religious Studies Name Role Phone System, Provider Not In [...] release of HIV test results or diagnoses. [id number] Health Encounter Details Date Type Department Care Team (Late st Contact Info) Description 09/24/2025 Orders Only [facility] Liver Transplant at [address] [address] Chapito Alcantar, SILVIO Alcoholic cirrhosis of liver [...] as of this encounter Results * (ABNORMAL) Protime-INR (09/24/2025 2:11 PM EST) Protime 22.7(H) 12.1 - 15.1 seconds 09/24/2025 3:06 PM EST [facility] INR 1.9(H) 0.9 - 1.1 09/24/2025 3:06 PM EST [facility] Comment: RECOMMENDED THERAPEUTIC RANGES USING INR : Stable oral anticoagulant therapy: 2.0 - 3.0 Mechanical prosthetic heart valve: 2.5 - 3.5 Recurrent acute myocardial infarction: 2.5 - 3.5 Plasma 09/24/2025 2:11 PM EST 09/24/2025 2:43 PM EST Nigel Reaves MD LAB BLOOD ORDERABLES Final Resul t [facility] [address] * (ABNORMAL) Renal Function Panel w/EGFR (09/24/2025 2:11 PM EST) Pathologist [facility] Sodium 137 133 - 146 mmol/L 09/24/2025 6:36 PM EST [facility] Potassium 3.9 3.5 - 5.3 mmol/L 09/24/2025 6:36 PM EST [facility] Chloride 104 98 - 110 mmol/L 09/24/2025 6:36 PM EST [facility] CO2 29 21 - 33 mmol/L 09/24/2025 6:36 PM EST [facility] Comment:High lactate dehydro genase concentrations in patient samples may cause falsely increased bicarbonate results. If markedly elevated LDH is observed or suspected, please assess results in conjunction with patient`s clinical presentation. In cases of discrepant results, consider evaluating CO2 in with a blood gas order. Anion Gap 4 3 - 16 mmol/L 09/24/2025 6:36 PM EST [facility] BUN 13 7 - 25 mg/dL 09/24/2025 6:36 PM EST [facility] Creatinine 0.84 0.60 - 1.30 mg/dL 09/24/2025 6:36 PM EST [facility] Glucose 98 70 - 100 mg/dL 09/24/2025 6:36 PM EST [facility] Calcium 8.1(L) 8.6 - 10.3 mg/dL 09/24/2025 6:36 PM EST [facility] Phosphorus 3.5 2.1 - 4.7 mg/dL 09/24/2025 6:36 PM EST [facility] Albumin 2.0(L) 3.5 - 5.7 g/dL 09/24/2025 6:36 PM EST [facility] Osmolality, Calculated 284 278 - 305 mOsm/kg 09/24/2025 6:36 PM EST [facility] EGFR >90 09/24/2025 6:36 PM EST [facility] Comment: As of 2022, the [...] MD LAB BLOOD ORDERABLES Final Resul t [facility] [address] [place] [address], [facility] * (ABNORMAL) Hepatic Function Panel (09/24/2025 2:11 PM EST) Total Bilirubin 3.4(H) 0.0 - 1.5 mg/dL 09/24/2025 6:36 PM EST [facility] Bilirubin, Direct 1.07(H) 0.00 - 0.40 mg/dL 09/24/2025 6:36 PM EST [facility] AST 37 13 - 39 U/L 09/24/2025 6:36 PM EST [facility] ALT 22 7 - 52 U/L 09/24/2025 6:36 PM EST [facility] Alkaline Phosphatase 142(H) 36 - 125 U/L 09/24/2025 6:36 PM EST [facility] Total Protein 5.8(L) 6.4 - 8.9 g/dL 09/24/2025 6:36 PM EST [facility] Albumin 2.0(L) 3.5 - 5.7 g/dL 09/24/2025 6:36 PM EST [facility] Bilirubin, Indirect 2.33(H) 0.00 - 1.10 mg/dL 09/24/2025 6:36 PM EST [facility] Plasma 09/24/2025 2:11 PM EST 09/24/2025 5:52 PM EST us Nigel Reaves MD LAB BLOOD ORDERABLES Final Resul t [facility] [address] [place] [address], [facility] documented in this encounter Visit Diagnoses Diagnosis Alcoholic cirrhosis of liver with ascites (CMS-HCC)- Primary Pre-transplant evaluation for chronic liver disease documented in this encounter Additional Health Concerns Assessment Noted Time PHQ-9 Depression Total Score: 8 09/10/20 25 11:09 AM EDT documented as of this encounter Care Teams Professor Of Religious Studies Relationship Specialty Start Date End Date System, Provider Not In PCP - General 09/10/25 documented as of this encounter
--- OUTSIDE RECORDS SUMMARY | 2025-10-08 07:16 | XMS_ITS | Encounter Summary ---
Author Organization [facility] Address [address] [place] [address] Care Team Providers Care Air Compressor Operator Name Role Phone System, Provider Not [...] release of HIV test results or diagnoses. [id number] Health Encounter Details Date Type Department Care Team (Late st Contact Info) Description 09/21/2025 Refill [facility] at [facility] [address] [place] [id number] Arturo Gibson, RN Social History Tobacco Use Types Packs/Day [...] documented as of this encounter Care Teams Air Compressor Operator Relationship Specialty Start Date End Date System, Provider Not In PCP - General 09/10/25 documented as of this encounter
--- OUTSIDE RECORDS SUMMARY | 2025-10-08 07:17 | XMS_ITS | Encounter Summary ---
Author Organization [facility] Address [address] [place] [address] Care Team Providers Care Military Exchange Wireless Manager Name Role Phone Unknown, Attending Provider [...] release of HIV test results or diagnoses. [id number] Health Encounter Details Date Type Department Care Team (Late st Contact Info) Description 09/13/2024 Orders Only EXTERNAL PROV RESULTS [address] [place] [address] System, Provider Not In Social History [...] on filedocumented in this encounter Care Teams Military Exchange Wireless Manager Relationship Specialty Start Date End Date Unknown, Attending Provider PCP - General 08/29/2508/16 System, Provider Not In PCP - General 09/10/25 documented as of this encounter
--- OUTSIDE RECORDS SUMMARY | 2025-10-08 07:17 | XMS_ITS | Encounter Summary ---
Author Organization [facility] Address [address] [place] [address] Care Team Providers Care Philosophy And Religion Instructor Name Role Phone System, Provider Not [...] release of HIV test results or diagnoses. [id number] Health Encounter Details Date Type Department Care Team (Late st Contact Info) Description 09/10/2025 Social Work [facility] Liver Transplant at [address] [address] Michelle Ho MSW, LSW Social History Tobacco [...] PSYCHOSOCIAL ASSESSMENT Support Persons: Stacy Pop (): [phone] Daniel (brother) Gloria (daughter) Urban Patterson (neighbor) Lan (son): [phone] Past and Current Life / Social Situation: [...] at [employer]. He does not have any gnosticist, ethnic, or personal objections to accepting blood [...] Score 8 GAD7 Scores: 09/10/2025 11:09 AM [id number] Score CLAUDIA-7 Total Score 1 Reviewed results [...] discussed the patient's psychosocial evaluation with the crystal machining coordinator (Ezekiel Alcantar). The patient participated in [...] number for additional needs. MADHAV Arias, TONYA [phone] TRANSPLANT PSYCH NOTEWRITER: Txp Clinic Entry Point: 03 [facility] Social Work Assessment: 01 New Patient SW Evaluation Location: 02 [facility] Patient Barriers & Recommendations: 01 No Barriers documented in this encounter Plan of Treatment Not on file documented as of this encounter Visit Diagnoses Not on filedocumented in this encounter Additional Health Concerns Assessment Noted Time PHQ-9 Depression Total Score: 8 09/10/20 11:09 AM EDT documented as of this encounter Care Teams Philosophy And Religion Instructor Relationship Specialty Start Date End Date System, Provider Not In PCP - General 09/10/25 documented as of this encounter
--- OUTSIDE RECORDS SUMMARY | 2025-10-08 07:17 | XMS_ITS | Encounter Summary ---
Author Organization [facility] Address [address] [place] [address] Care Team Providers Care Production Team Member Name Role Phone System, Provider Not In [...] release of HIV test results or diagnoses. [id number] Health Encounter Details Date Type Department Care Team (Late st Contact Info) Description 09/11/[address] [facility] Liver Transplant at [address] [address] Chapito Alcantar RN Social History Tobacco Use [...] as of this encounter Care Teams Production Team Member Relationship Specialty Start Date End Date System, Provider Not In PCP - General 09/10/25 documented as of this encounter
--- OUTSIDE RECORDS SUMMARY | 2025-10-08 07:17 | XMS_ITS | Encounter Summary ---
Author Organization [facility] Address [address] [place] [address] Care Team Providers Care Field Service Rep Name Role Phone System, Provider Not In [...] release of HIV test results or diagnoses. [id number] Health Encounter Details Date Type Department Care Team (Late st Contact Info) Description 09/13/2025 Chart Note [facility] Liver Transplant at [address] [address] Chapito Alcantar RN Multi-disciplinary Hepatobiliary Case Conference [...] as of this encounter Care Teams Field Service Rep Relationship Specialty Start Date End Date System, Provider Not In PCP - General 09/10/25 documented as of this encounter
--- OUTSIDE RECORDS SUMMARY | 2025-10-08 07:17 | XMS_ITS | Encounter Summary ---
Author Organization [facility] Address [address] [place] [address] Care Team Providers Care Roll Cutting Operator Name Role Phone System, Provider Not [...] release of HIV test results or diagnoses. [id number] Health Encounter Details Date Type Department Care Team (Late st Contact Info) Description 09/11/2025 Chart Note [facility] Kidney Transplant at [address] [address] Ailin Wells Faxed Clinical for Listing/Txp Auth [...] Auth Organ: liver Listed Date: TBD Ins: [place] BCBS Cane Flume Watcher: pending documented in this encounter Plan of Treatment Not on file documented as of this encounter Visit Diagnoses Not on filedocumented in this encounter Additional Health Concerns Assessment Noted Time PHQ-9 Depression Total Score: 8 09/10/20 25 11:09 AM EDT documented as of this encounter Care Teams Roll Cutting Operator Relationship Specialty Start Date End Date System, Provider Not In PCP - General 09/10/25 documented as of this encounter
--- OUTSIDE RECORDS SUMMARY | 2025-10-08 07:17 | XMS_ITS | Encounter Summary ---
Author Organization [facility] Address [address] [place] [address] Care Team Providers Care Electrical Engineering Drafting Officer Name Role Phone System, Provider Not In [...] release of HIV test results or diagnoses. [id number] Health Encounter Details Date Type Department Care Team (Late st Contact Info) Description 09/10/2025 Nutrition [facility] Kidney Transplant at [address] [address] Social History Tobacco Use [...] 2.1 (L) 09/10/2025 No results found for: [id number] PMH: Past Medical History: Diagnosis Date Epididymitis [...] Dietitian - Solid Organ Transplant Contact via [employer] [1] Allergies Allergen Reactions Lisinopril Other (See Comments) documented in this encounter Plan of Treatment Not on file documented as of this encounter Visit Diagnoses Not on filedocumented in this encounter Additional Health Concerns Assessment Noted Time PHQ-9 Depression Total Score: 8 09/10/20 11:09 AM EDT documented as of this encounter Care Teams Electrical Engineering Drafting Officer Relationship Specialty Start Date End Date System, Provider Not In PCP - General 09/10/25 documented as of this encounter
--- OUTSIDE RECORDS SUMMARY | 2025-10-08 07:17 | XMS_ITS | Encounter Summary ---
Author Organization Healthcare Address [address] [place] [address] Care Team Providers Care Commissary Production Supervisor Name Role Phone Ruma Hernández CORPORATE TRAVEL CONSULTANT Unavailable [phone] Chris Medel MD Primary Care Provider [phone] Encounter Details Date Type Department Care Team (Late st Contact Info) Description 08/31/2025 Results Follow-Up [facility] [address] [place] [address] Meaghan Le, RN [facility] [id number] [address] [place] [address] Social History Tobacco Use Types Packs/Day Years [...] you attend [facility] or evangelical services? More than 4 times per year 02/19/2025 Do you belong to any clubs o r organizations such as adventism groups, unions, [employer] or athletic groups, or school groups? Yes [...] and heating? Not hard at all 06/15/2025 [facility] Occupational Stress Questionnaire Answer Date [...] drink first t luisa in the morning (EYE-LEAD JAVA SOFTWARE ENGINEER) to steady your nerves or to get rid of a hangover? 0 06/14/2025 CAGE Questionnaire Score 0 025 Utilities Answer Date Recorded In the past 12 months has th e [employer], gas, oil, or water [employer] threatened to shut off services in your [...] Metabolism [address] [place] [address] Moustapha Katz MD [address] [place] [address] 11/27/2025 3:45 PM EST Office Visit Medical Office Building Urology [address] [facility], [address] [place] [address] Suhail Brock MD [address] [place] [address] 12/12/2025 8:30 AM EST Clinical Support [facility] Transplant [place] [address] [place] [address] 12/12/2025 10:00 AM EST Office Visit [facility] Trans[facility] [place] [address] [place] [address] Portia Maguire MD [address] [facility] [address] [place] [address] documented as of this encounter [...] documented as of this encounter Care Teams Commissary Production Supervisor Relationship Specialty [place] [address] PCP - General 03/14/25 Ruma Hernández APRN [address] [facility] [address] [place] [address] Referring Physician Gastroenterology 07/30/23 documented as of this encounter
--- OUTSIDE RECORDS SUMMARY | 2025-10-08 07:17 | XMS_ITS | Encounter Summary ---
Author Organization [facility] Address [address] [place] [address] Care Team Providers Care Veneer Grader Name Role Phone System, Provider Not In [...] release of HIV test results or diagnoses. [id number] Health Encounter Details Date Type Department Care Team (Late st Contact Info) Description 09/10/2025 Chart Note [facility] Liver Transplant at [address] [address] Chapito Alcantar RN Alcoholic cirrhosis of liver [...] Alcantar RN - 09/10/2025 9:11 AM EDT [place] tab updated documented in this encounter Plan [...] QT: 464 ms QTc: 478 ms P [place]: 27 degrees R [place]: 58 degrees T [place]: 22 degrees Diagnosis Line: NORMAL SINUS RHYTHM ^ NORMAL ECG ^ No previous ECGs available ^ Confirmed by MD TIP, MAN [facility] ([id number]) on 09/10/2025 3:28:36 PM Buddy [...] documented as of this encounter Care Teams Veneer Grader Relationship Specialty Start Date End Date System, Provider Not In PCP - General 09/10/25 documented as of this encounter
--- OUTSIDE RECORDS SUMMARY | 2025-10-08 07:17 | XMS_ITS | Encounter Summary ---
Author Organization [facility] Address [address] [place] [address] Care Team Providers Care Blue Line Hanger Name Role Phone Unknown, Attending Provider Primary [...] release of HIV test results or diagnoses. [id number] Reason for Referral * Imaging/Cardiovascular Scan (Routine) - New Request Specialty Diagnoses / Procedures Referred By Gianna reyes Referred To Contact Radiology Procedures CT Abdomen and or Pelvis Outside Exam System, Provider Not In [address] [address] Referral ID Status Reason Start Date Expiration Date V isits Requested Visits Authorized [id number] New Request 09/08/2025 03/07/2026 1 1 Encounter Details Date Type Department Care Team (Late st Contact Info) Description 04/21/2024 Orders Only EXTERNAL PROV RESULTS [address] [place] [address] System, Provider Not In Social History Tobacco [...] on filedocumented in this encounter Care Teams Blue Line Hanger Relationship Specialty Start Date End Date Unknown, Attending Provider PCP - General 08/29/2508/16 System, Provider Not In PCP - General 09/10/25 documented as of this encounter
--- OUTSIDE RECORDS SUMMARY | 2025-10-08 07:17 | XMS_ITS | Encounter Summary ---
Author Organization Healthcare Address [address] [place] [address] Care Team Providers Care Investment Director Name Role Phone Ruma Hernández SENIOR WEB SERVICES DEVELOPER Unavailable [phone] Chris Medel MD Primary Care Provider + [phone] Reason for Referral * Imaging (Routine) - Closed Specialty Diagnoses / Procedures Referred By Gianna reyes Referred To Contact Radiology Diagnoses Pre-liver transplant, listed Procedures MR Abdomen w and wo IV Contrast Portia Maguire MD [address] [facility] [address] [place] [address] Phone: tel: fax: Referral ID Status Reason Start Date Expiration Date Visits Re quested Visits Authorized [id number] Closed 09/05/2025 03/07/2027 1 1 Encounter Details Date Type Department Care Team (Late st Contact Info) Description 09/05/2025 Orders Only [facility] Transplant Center [address] [facility] [address] [place] [address] Meaghan Le, RN HOSPITAL LIVER [id number] [address] [place] [address] Pre-liver transplant, listed (Primary Dx) Social History [...] you attend [facility] or muslim services? More than 4 times [...] drink first t luisa in the morning (EYE-INTERACTIVE ART DIRECTOR) to steady your nerves or to [...] Center Bone & Mineral Metabolism [address] [facility], [address] [place] [address] Moustapha Katz MD [address] [facility] [address] [place] [address] 11/27/2025 3:45 PM EST Office Visit Medical Office Building Urology [address] [facility], [address] [place] [address] Suhail Brock MD [address] [place] [address] 12/12/2025 8:30 AM EST Clinical Support [facility] Transplant [facility] [address] [place] [address] 12/12/2025 10:00 AM EST Office Visit [facility] [address] [place] [address] Portia Maguire MD [address] [place] [address] documented as of this encounter [...] are consistent with and integrated into the [employer] Association for the Study of Liver Diseases [...] using the following sequences: coronal single shot [id number] fast spin echo, axial T2 weighted sequences [...] are consistent with and integrated into the Australian Associationfor the Study of Liver Diseases (AASLD) [...] documented as of this encounter Care Teams Investment Director Relationship Specialty [place] [id number] PCP - General 03/14/25 Ruma Hernández APRN [address] [facility] [address] [place] [address] Referring Physician Gastroenterology 07/30/23 documented as of this encounter
--- OUTSIDE RECORDS SUMMARY | 2025-10-08 07:17 | XMS_ITS | Encounter Summary ---
Author Organization [facility] Address [address] [place] [address] Care Team Providers Care Stock Order Lister Name Role Phone Unknown, Attending Provider Primary [...] release of HIV test results or diagnoses. [id number] Health Encounter Details Date Type Department Care Team (Late st Contact Info) Description 09/05/2025 Telephone [facility] Liver Transplant at [address] [address] Cori Dover MA Social History Tobacco Use [...] request the following images be sent to [facility] Pacs: Must send fax request. Request faxed [...] on filedocumented in this encounter Care Teams Stock Order Lister Relationship Specialty Start Date End Date Unknown, Attending Provider PCP - General 08/29/2508/16 documented as of this encounter
--- OUTSIDE RECORDS SUMMARY | 2025-10-08 07:17 | XMS_ITS | Encounter Summary ---
Author Organization Healthcare Address [address] [place] [address] Care Team Providers Care Lining Presser Name Role Phone Ruma Hernández SURFACE SHIP USW SUPERVISOR Unavailable [phone] Chris Medel MD Primary Care Provider [phone] Encounter Details Date Type Department Care Team [...] 06/15/2025 How often do you attend [facility] or oriental orthodox services? More than 4 [...] heating? Not hard at all 06/15/2025 [facility] [place] of Occupat ional Health - Occupational Stress [...] first t luisa in the morning (EYE-DIRECTOR VETERINARY) to steady your nerves or to get [...] & Mineral Metabolism [address] [facility], [address] [place] [address] Moustapha Katz MD [address] [facility] [address] [place] [address] 11/27/2025 3:45 PM EST Office Visit Medical Office Building Urology [address] [facility] [address], [address] [place] [address] Suhail Brock MD [address] [facility] [address] [place] [address] 12/12/2025 8:30 AM EST Clinical Support [facility] Transplant [place] [address] [facility] [address] [place] [address] 12/12/2025 10:00 AM EST Office Visit [facility] [place] [address] [facility] [address] [place] [address] Portia Maguire MD [address] [facility] [address] [place] [address] documented as of this encounter [...] documented as of this encounter Care Teams Lining Presser Relationship Specialty [place] [id number] PCP - General 03/14/25 Ruma Hernández APRN [address] [place] [address] Referring Physician Gastroenterology 07/30/23 documented as of this encounter
--- OUTSIDE RECORDS SUMMARY | 2025-10-08 07:17 | XMS_ITS | Encounter Summary ---
Author Organization [facility] Address [address] [place] [address] Care Team Providers Care Laundry Manager Name Role Phone Unknown, Attending Provider [...] release of HIV test results or diagnoses. [id number] Health Encounter Details Date Type Department Care Team (Late st Contact Info) Description 09/05/2025 Telephone [facility] Liver Transplant at [address] [address] Chapito Alcantar RN Social History Tobacco Use [...] on filedocumented in this encounter Care Teams Laundry Manager Relationship Specialty Start Date End Date Unknown, Attending Provider PCP - General 08/29/2508/16 documented as of this encounter
--- OUTSIDE RECORDS SUMMARY | 2025-10-08 07:17 | XMS_ITS | Encounter Summary ---
Author Organization [facility] Address [address] [place] [address] Care Team Providers Care Manager Motor Name Role Phone Unknown, Attending Provider Primary [...] release of HIV test results or diagnoses. [id number] Health Encounter Details Date Type Department Care Team (Late st Contact Info) Description 09/05/2025 Abstract [facility] Liver Transplant at [address] [address] Chapito Alcantar, SILVIO Alcoholic cirrhosis of liver [...] disease documented in this encounter Care Teams Manager Motor Relationship Specialty Start Date End Date Unknown, Attending Provider PCP - General 08/29/2508/16 documented as of this encounter
--- OUTSIDE RECORDS SUMMARY | 2025-10-08 07:17 | XMS_ITS | Encounter Summary ---
Author Organization [facility] Address [address] [place] [address] Care Team Providers Care Analytical Manager Name Role Phone System, Provider Not [...] release of HIV test results or diagnoses. [id number] Health Encounter Details Date Type Department Care Team (Late st Contact Info) Description 09/11/2025 Telephone [facility] Liver Transplant at [address] [address] Chapito Alcantar, SILVIO Social History Tobacco Use [...] documented as of this encounter Care Teams Analytical Manager Relationship Specialty Start Date End Date System, Provider Not In PCP - General 09/10/25 documented as of this encounter
--- OUTSIDE RECORDS SUMMARY | 2025-10-08 07:17 | XMS_ITS | Encounter Summary ---
Author Organization [facility] Address [address] [place] [address] Care Team Providers Care Specifications Writer Name Role Phone System, Provider Not In [...] release of HIV test results or diagnoses. [id number] Health Encounter Details Date Type Department Care Team (Late st Contact Info) Description 09/17/2025 Telephone [facility] at [facility] [address] [place] [address] Navi Sims MD [address] [facility] [address] [place] [address] Social History Tobacco Use Types Packs/Day [...] documented as of this encounter Care Teams Specifications Writer Relationship Specialty Start Date End Date System, Provider Not In PCP - General 09/10/25 documented as of this encounter
--- OUTSIDE RECORDS SUMMARY | 2025-10-08 07:17 | XMS_ITS | Encounter Summary ---
Author Organization Healthcare Address [address] [place] [address] Care Team Providers Care Beef Splitter Name Role Phone Ruma Hernández EMERGENCY SERVICES DISPATCHER Unavailable [phone] Chris Medel MD Primary Care Provider [phone] Encounter Details Date Type Department Care Team [...] do you attend [facility] or baptist services? More than 4 times [...] and heating? Not hard at all 06/15/2025 [facility] [place] of Occupat ional Health - Occupational Stress [...] any time in the past 12 [facility], were you homeless or living [...] drink first t luisa in the morning (EYE-AGRONOMY INSTRUCTOR) to steady your nerves or to get [...] Upcoming Encounters Date Type Department Care Team ([facility] Contact Info) Description 10/18/2025 4:20 PM EST Office Visit [facility] Metabolism [address] [facility], [address] [place] [address] Moustapha Katz MD [address] [facility] [address] [place] [address] 11/27/2025 3:45 PM EST Office Visit Medical Office Building Urology [address] [facility], [address] [place] [address] Suhail Brock MD [address] [facility] [facility] [address] [place] [address] 12/12/2025 8:30 AM EST Clinical Support [facility] Transplant [place] [address] [place] [address] 12/12/2025 10:00 AM EST Office Visit [facility] Transplant [place] [address] [place] [address] Portia Maguire MD [address] [facility] [facility] [address] [place] [address] documented as of this encounter Visit Diagnoses [...] documented as of this encounter Care Teams Beef Splitter Relationship Specialty [place] [id number] PCP - General 03/14/25 Ruma Hernández APRN [address] [address] Referring Physician Gastroenterology 07/30/23 documented as of this encounter
--- OUTSIDE RECORDS SUMMARY | 2025-10-08 07:17 | XMS_ITS | Encounter Summary ---
Author Organization Healthcare Address [address] [place] [address] Care Team Providers Care Top Executive Name Role Phone Ruma Hernández CALENDER OPERATOR HELPER Unavailable [phone] Chris Medel MD Primary Care Provider [phone] Encounter Details Date Type Department Care Team (Late st Contact Info) Description 09/12/2025 Results Follow-Up [facility] Transplant Center [address] [place] [address] Meaghan Le, RN [facility] LIVER [id number] [address] [place] [address] Social History Tobacco Use Types Packs/Day Years [...] you attend [facility] or confucianist services? More than 4 times per year 02/19/2025 Do you belong to any clubs o r organizations such as adventist groups, unions, Spine Pain Managementternal or athletic groups, or school groups? Yes [...] heating? Not hard at all 06/15/2025 [facility] - Occupational Stress Questionnaire Answer [...] drink first t luisa in the morning (EYE-PACKAGING MACHINE SUPPLIES DISTRIBUTOR) to steady your nerves or to get rid of a hangover? 0 06/14/2025 CAGE Questionnaire Score 0 025 Utilities Answer Date Recorded In the past 12 months has th e [employer], gas, oil, or water [employer] threatened to shut off services in your [...] [facility], [address] [place] [address] Moustapha Katz MD [address] [facility] [address] [place] [address] 11/27/2025 3:45 PM EST Office Visit Medical Office Building Urology [address] [facility] [facility], [address] [place] [address] Suhail Brock MD [address] [facility] [address] [place] [address] 12/12/2025 8:30 AM EST Clinical Support [facility] Transplant [place] [address] [facility] [address] [place] [address] 12/12/2025 10:00 AM EST Office Visit [facility] Transplant [place] [address] [place] [address] Portia Maguire MD [address] [facility] [address] [place] [address] documented as of this [...] documented as of this encounter Care Teams Top Executive Relationship Specialty [place] [id number] PCP - General 03/14/25 Ruma Hernández APRN [address] [place] [address] [address] [place] [address] Referring Physician Gastroenterology 07/30/23 documented as of this encounter
--- OUTSIDE RECORDS SUMMARY | 2025-10-08 07:17 | XMS_ITS | Encounter Summary ---
Author Organization [facility] Address [address] [place] [address] Care Team Providers Care Casing Runner Name Role Phone System, Provider Not In [...] release of HIV test results or diagnoses. [id number] Health Encounter Details Date Type Department Care Team (Late st Contact Info) Description 09/19/2025 Telephone [facility] Liver Transplant at [address] [address] Chapito Alcantar RN Social History Tobacco Use [...] an OSH with a transfer pending [facility]. Updated family that no bed is currently [...] documented as of this encounter Care Teams Casing Runner Relationship Specialty Start Date End Date System, Provider Not In PCP - General 09/10/25 documented as of this encounter
--- OUTSIDE RECORDS SUMMARY | 2025-10-08 07:18 | XMS_ITS | Encounter Summary ---
Author Organization Healthcare Address [address] [place] [address] Care Team Providers Care Liner Roll Changer Name Role Phone Urban Brantley DO Primary Care Provider [phone] Ruma Hernnádez INSERTING PRESS OPERATOR Unavailable [phone] Chris Medel MD Primary Care Provider [phone] Encounter Details Date Type Department Care Team (Late Contact Info) Description 05/09/2023 Orders Only External Location [address] [place] [address] Provider, External Social History Tobacco Use Types [...] Department Care Team (Late Contact Info) Description 10/18/2025 4:20 PM EST Office Visit [facility] [employer] [place] Bone & Mineral Metabolism [address] [facility], [address] [place] [address] Moustapha Katz MD [address] [facility] [address] [place] [address] 11/27/2025 3:45 PM EST Office Visit Medical Office Building Urology [address] [facility], [address] [place] [address] Suhail Brock MD [address] [place] [address] 12/12/2025 8:30 AM EST Clinical Support [facility] Transplant [place] [address] [place] [address] 12/12/2025 10:00 AM EST Office Visit [facility] Transplant [place] [address] [facility] [address] [place] [address] Portia Maguire MD [address] [facility] [address] [place] [address] documented as of this encounter [...] documented as of this encounter Care Teams Liner Roll Changer Relationship Specialty Start Date End Date Urban Brantley DO [address] [place] [address] PCP - General 07/30/23 03/13/25 [place] [address] PCP - General 03/14/25 Ruma Hernández APRN [address] [place] [address] Referring Physician Gastroenterology 07/30/23 documented as of this encounter
--- OUTSIDE RECORDS SUMMARY | 2025-10-08 07:18 | XMS_ITS | Encounter Summary ---
Author Organization Healthcare Address [address] [place] [address] Care Team Providers Care Compugraph Operator Name Role Phone Urban Brantley DO Primary Care Provider [phone] Ruma Hernández WELDING MACHINE SETTER Unavailable [phone] Chris Medel MD Primary Care Provider [phone] Encounter Details Date Type Department Care Team (Late Contact Info) Description 03/22/2023 Orders Only External Location [address] [place] [address] Provider, External Social History Tobacco Use Types [...] 10/18/2025 4:20 PM EST Office Visit [facility] [employer] [place] Bone & Mineral Metabolism [address] [facility], [address] [place] [address] Moustapha Katz MD [address] [facility] [address] [place] [address] 11/27/2025 3:45 PM EST Office Visit Medical Office Building Urology [address] [facility], [address] [place] [address] Suhail Brock MD [address] [place] [address] 12/12/2025 8:30 AM EST Clinical Support [facility] Transplant [place] [address] [place] [address] 12/12/2025 10:00 AM EST Office Visit [facility] Transplant [place] [address] [facility] [address] [place] [address] Portia Maguire MD [address] [facility] [address] [place] [address] documented as of this encounter [...] documented as of this encounter Care Teams Compugraph Operator Relationship Specialty Start Date End Date Urban Brantley DO [address] [place] [address] PCP - General 07/30/23 03/13/25 [place] [address] PCP - General 03/14/25 Ruma Hernández APRN [address] [place] [address] Referring Physician Gastroenterology 07/30/23 documented as of this encounter
--- OUTSIDE RECORDS SUMMARY | 2025-10-08 07:18 | XMS_ITS | Encounter Summary ---
Author Organization Healthcare Address [address] [place] [address] Care Team Providers Care Software Installation Engineer Name Role Phone Urban Brantley DO Primary Care Provider [phone] Ruma Hernández PAPER STRIPPER Unavailable [phone] Chris Medel MD Primary Care Provider [phone] Encounter Details Date Type Department Care Team (Late st Contact Info) Description 12/30/2023 Orders Only External Location [address] [place] [address] Urban Stafford MD [address] [facility] [address] [place] [address] Social History [...] 10/18/2025 4:20 PM EST Office Visit [facility] Bone & Mineral Metabolism [address] [facility], [address] [place] [address] Moustapha Katz MD [address] [facility] [address] [place] [address] 11/27/2025 3:45 PM EST Office Visit Medical Office Building Urology [address] [facility], [address] [place] [address] Suhail Brock MD [address] [place] [address] 12/12/2025 8:30 AM EST Clinical Support [facility] Transplant [place] [address] [place] [address] 12/12/2025 10:00 AM EST Office Visit [facility] Transplant [place] [address] [place] [address] Portia Maguire MD [address] [place] [address] documented as of this encounter [...] documented as of this encounter Care Teams Software Installation Engineer Relationship Specialty Start Date End Date Urban Brantley DO [address] [place] [address] PCP - General 07/30/23 03/13/25 Chris Medel MD [id number] PCP - General 03/14/25 Ruma Hernández APRN [facility] [address] [address] Referring Physician Gastroenterology 07/30/23 documented as of this encounter
--- OUTSIDE RECORDS SUMMARY | 2025-10-08 07:18 | XMS_ITS | Encounter Summary ---
Author Organization Healthcare Address [address] [place] [address] Care Team Providers Care Hydropress Operator Name Role Phone Ruma Hernández MEMBER OF TECHNICAL STAFF Unavailable [phone] Chris Medel MD Primary Care Provider [phone] Encounter Details Date Type Department Care Team (Late st Contact Info) Description 06/29/2025 Results Follow-Up [facility] Transplant Center [address] [place] [address] Meaghan Le, RN [facility] LIVER [id number] [address] [place] [address] Social History Tobacco Use Types Packs/Day Years [...] you attend [facility] or rastafari services? More than 4 times per year 02/19/2025 Do you belong to any clubs o r organizations such as protestant groups, unions, Shippterternal or athletic groups, or school groups? Yes [...] and heating? Not hard at all 06/15/2025 [facility] - Occupational Stress Questionnaire Answer [...] drink first t luisa in the morning (EYE-GATE GUARD) to steady your nerves or to get rid of a hangover? 0 06/14/2025 CAGE Questionnaire Score 0 025 Utilities Answer Date Recorded In the past 12 months has th [employer], gas, oil, or water [employer] threatened to shut off services in your [...] 10/18/2025 4:20 PM EST Office Visit [facility] [employer] [place] Bone & Mineral Metabolism [address] [facility], [address] [place] [address] Moustapha Katz MD [address] [facility] [address] [place] [address] 11/27/2025 3:45 PM EST Office Visit Medical Office Building Urology [address] [facility] [facility], [address] [place] [address] Suhail Brock MD [address] [facility] [address] [place] [address] 12/12/2025 8:30 AM EST Clinical Support [facility] Transplant [facility] [address] [place] [address] 12/12/2025 10:00 AM EST Office Visit [facility] [place] [address] [place] [address] Portia Maguire MD [address] [place] [address] documented as of this encounter Visit Diagnoses [...] documented as of this encounter Care Teams Hydropress Operator Relationship Specialty [place] [id number] PCP - General 03/14/25 Ruma Hernández APRN [address] [place] [address] Referring Physician Gastroenterology 07/30/23 documented as of this encounter
--- OUTSIDE RECORDS SUMMARY | 2025-10-08 07:18 | XMS_ITS | Encounter Summary ---
Author Organization [facility] Address [address] [place] [address] Care Team Providers Care Circular Saw Filer Name Role Phone Unavailable Primary Care Provider [...] release of HIV test results or diagnoses. [id number] Health Encounter Details Date Type Department Care Team (Late st Contact Info) Description 08/13/2025 Telephone [facility] Liver Transplant at [address] [address] Cori Dover MA Social History Tobacco Use [...]
--- OUTSIDE RECORDS SUMMARY | 2025-10-08 07:18 | XMS_ITS | Encounter Summary ---
Author Organization [facility] Address [address] [place] [address] Care Team Providers Care Heavy Equipment Service Technician Name Role Phone System, Provider Not [...] release of HIV test results or diagnoses. [id number] Health Encounter Details Date Type Department Care Team (Late st Contact Info) Description 09/17/2025 Refill [facility] at [facility] [address] [place] [phone] Johnny Dubois RN Social History Tobacco Use [...] medication will need to be sent to [facility] pharmacy to be filled. Gave [facility] pharmacy phonenumber to call about getting medication mailed to their house possibly. documented in this encounter Plan of Treatment Not on file documented as of this encounter Visit Diagnoses Not on filedocumented in this encounter Additional Health Concerns Assessment Noted Time PHQ-9 Depression Total Score: 8 09/10/20 25 11:09 AM EDT documented as of this encounter Care Teams Heavy Equipment Service Technician Relationship Specialty Start Date End Date System, Provider Not In PCP - General 09/10/25 documented as of this encounter
--- OUTSIDE RECORDS SUMMARY | 2025-10-08 07:18 | XMS_ITS | Encounter Summary ---
Author Organization [facility] Address [address] [place] [address] Care Team Providers Care Life Insurance Salesperson Name Role Phone Unavailable Primary Care Provider [...] release of HIV test results or diagnoses. [id number] Reason for Referral * Imaging/Cardiovascular Scan (Routine) - Closed Specialty Diagnoses / Procedures Referred By Contru t Referred To Contact Radiology Diagnoses Pre-transplant evaluation for chronic liver disease Procedures CT Chest WO contrast [facility] Liver Transplant at [address] [address] Phone: tel: fax: Referral ID Status Reason Start Date Expiration Date Visits Re quested Visits Authorized [id number] Closed 08/13/2025 02/09/2026 1 1 Encounter Details Date Type Department Care Team (Late st Contact Info) Description 08/13/2025 Orders Only [facility] Liver Transplant at [address] [address] Chapito Alcantar RN Pre-transplant evaluation [...] within the right upper lobe with downstream [id number] within the paramedian right upper lobe apex. [...]
--- OUTSIDE RECORDS SUMMARY | 2025-10-08 07:18 | XMS_ITS | Encounter Summary ---
Author Organization [facility] Address [address] [place] [address] Care Team Providers Care User Interface Engineer Name Role Phone Unavailable Primary Care Provider [...] release of HIV test results or diagnoses. [id number] Health Encounter Details Date Type Department Care Team (Late st Contact Info) Description 08/13/2025 Chart Note [facility] Kidney Transplant at [address] [address] Ailin Wells Patient is financially cleared for [...] needs to be done at [facility] documented in this encounter Plan of Treatment Not on file documented as of this encounter Visit Diagnoses Not on filedocumented in this encounter
--- OUTSIDE RECORDS SUMMARY | 2025-10-08 07:18 | XMS_ITS ---
Author Organization [facility] Address [address] 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
--- OUTSIDE RECORDS SUMMARY | 2025-10-08 07:18 | XMS_ITS | Encounter Summary ---
Author Organization [facility] Address [address] [place] [address] Care Team Providers Care Senior Software Quality Engineer Name Role Phone Unavailable Primary Care [...] release of HIV test results or diagnoses. [id number] Health Encounter Details Date Type Department Care Team (Late st Contact Info) Description 08/13/2025 Telephone [facility] Liver Transplant at [address] [address] Cori Dover MA Social History Tobacco Use [...]
--- OUTSIDE RECORDS SUMMARY | 2025-10-08 07:18 | XMS_ITS | Encounter Summary ---
Author Organization [facility] Address [address] [place] [address] Care Team Providers Care Catalyst Plant Supervisor Name Role Phone Ruma Hernández PARI MUTUAL TICKET CHECKER Unavailable [phone] Chris Medel MD Primary Care Provider [phone] Encounter Details Date Type Department Care Team (Late st Contact Info) Description 08/29/2025 Orders Only [facility] [address] [place] [phone] Provider, [place] [address] [place] [phone] Social History Tobacco Use Types Packs/Day Years [...] How often do you attend [facility] or mosque services? More than 4 times per year 02/19/2025 Do you belong to any clubs o r organizations such as anabaptism groups, unions, RECCYternal or athletic groups, or school groups? Yes [...] Not hard at all 06/15/2025 [facility] - Occupational Stress Questionnaire Answer [...] drink first t luisa in the morning (EYE-RAILROAD POLICE OFFICER) to steady your nerves or to get rid of a hangover? 0 06/14/2025 CAGE Questionnaire Score 0 025 Utilities Answer Date Recorded In the past 12 months has th e teextee, gas, oil, or water sofatutor threatened to shut off services in your [...] [facility] [address], [address] [place] [address] Moustapha Katz MD [address] [place] [address] 11/27/2025 3:45 PM EST Office Visit Medical Office Building Urology [address], [address] [place] [address] Suhail Brock MD [address] [facility] [address] [place] [address] 12/12/2025 8:30 AM EST Clinical Support [facility] [place] [address] [place] [address] 12/12/2025 10:00 AM EST Office Visit [facility] [place] [address] [place] [phone] Portia Maguire MD [address] [facility] [address] [place] [address] documented as of this encounter Procedures Procedure Name Priority Date/Time Associated Diagnosis Comments COMPLETE METABOLIC PROFILE (CMP) Routine 08/29/2025 12:13 PM EDT PROTHROMBIN TIME(PT) / INR Routine 08/29/2025 11:11 AM EDT CBC WITH AUTO DIFFERENTIAL Routine 08/29/2025 11:11 AM EDT documented in this encounter Results * COMPLETE METABOLIC PROFILE (CMP) (08/29/2025 12:13 PM EDT) [facility] Provider LAB BLOOD ORDERABLES Final R esult * Prothrombin Time/INR (08/29/2025 11:11 AM EDT) Blood Venous blood specimen / Unknown [facility] Provider LAB BLOOD ORDERABLES Final R esult * CBC and Differential (08/29/2025 11:11 AM EDT) Blood Venous blood specimen / Unknown [facility] Provider LAB BLOOD ORDERABLES [...] documented as of this encounter Care Teams Catalyst Plant Supervisor Relationship Specialty [place] [address] PCP - General 03/14/25 Ruma Hernández APRN [address] [place] [address] Referring Physician Gastroenterology 07/30/23 documented as of this encounter
--- OUTSIDE RECORDS SUMMARY | 2025-10-08 07:18 | XMS_ITS ---
Author Organization [facility] Address [address] [place] [address] Care Team Providers Care Horseback Excavator Name Role Phone System, Provider Not In Primary Care Provider Un available Transplant Episode Liver Candidate [facility] ([place], [place]) - [facility] waitlisted on 09/25/2025 Marked as Active on 09/25/2025 Liver CoordinatorChapito Alcantar RN Phone: N/A Fax: N/A Email: N/A Scores Score Value Updated Expires Exceptions/Latricia sons CPRA Not available UNOS MELD 20 09/25/2025 10/25/2025 MELD (Calc) 20 09/24/2025 [place] Organ Diagnosis 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 Care Team Name Role Phone Fax Email Chapito Alcantar RN Liver Coordinator N/A N/A N/A Chapito Alcantar RN Txp Pre Coordinator N/A N/A N/A Portia Maguire Referring Physician [phone] N/A MADHAV Arias, DETECTIVE SERGEANT Txp Employment Office Clerk N/A N/A N/A Events Pre-Transplant Referred: 08/02/2025 Evaluation began: 09/10/2025 Committee: 09/11/2025 Center waitlisted: 09/25/2025 Recently Completed Checklist Tasks (Completed 09/07/2025 - 10/08/2025) Name Completion Date Additional Info Social Work Consult 09/11/2025 Appointments (09/07/2025 - 11/07/2025) When With Visit Type Description 09/10/2025 Txp Hep - Levi, K New Patient Pre-tra nsplant evaluation for chronic [...] Alcoholic cirrhosis of liver with ascites (CMS-HCC) 09/24/2025 Txp Hep - Jean Paul K Established Patient 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
--- OUTSIDE RECORDS SUMMARY | 2025-10-08 07:18 | XMS_ITS | Encounter Summary ---
Author Organization [facility] Address [address] [place] [address] Care Team Providers Care Agriculture Inspector Name Role Phone Urban Brantley DO Primary Care Provider [phone] Ruma Hernández GREENSKEEPER Unavailable [phone] Chris Medel MD Primary Care Provider [phone] Encounter Details Date Type Department Care Team (Late Contact Info) Description 03/22/2023 Orders Only External Location [address] [place] [phone] Provider, External Social History Tobacco Use Types [...] 10/18/2025 4:20 PM EST Office Visit Professional [employer] [place] [facility] [address] [facility] [address], [address] [place] [address] Moustapha Katz MD [address] [facility] [address] [place] [address] 11/27/2025 3:45 PM EST Office Visit Medical Office Building Urology [address] [facility], [address] [place] [address] Suhail Brock MD [address] [place] [address] 12/12/2025 8:30 AM EST Clinical Support [facility] [place] [address] [facility] [address] [place] [address] 12/12/2025 10:00 AM EST Office Visit [facility] [place] [address] [facility] [address] [place] [address] Portia Maguire MD [address] [facility] [address] [place] [address] documented as of this encounter [...] documented as of this encounter Care Teams Agriculture Inspector Relationship Specialty Start Date End Date Urban Brantley DO [address] [place] [address] PCP - General 07/30/23 03/13/25 [place] [address] PCP - General 03/14/25 Ruma Hernández APRN [address] [place] [address] Referring Physician Gastroenterology 07/30/23 documented as of this encounter
--- OUTSIDE RECORDS SUMMARY | 2025-10-08 07:18 | XMS_ITS | Encounter Summary ---
Author Organization [facility] Address [address] [place] [address] Care Team Providers Care Teacher Aide Name Role Phone Ruma Hernández PELLET MACHINE OPERATOR Unavailable [phone] Chris Medel MD Primary Care Provider [phone] Encounter Details Date Type Department Care Team (Late st Contact Info) Description 06/21/2025 Results Follow-Up [facility] [address] [place] [phone] Meaghan Le, RN [id number] [address] [place] [address] Social History Tobacco Use Types Packs/Day Years [...] do you attend [facility] or sikhism services? More than 4 times per year 02/19/2025 Do you belong to any clubs o r organizations such as voodoo groups, unions, Ringternal or athletic groups, or school groups? Yes [...] How often do you attend chur or sikhism services? 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 0 06/14/2025 CAGE Questionnaire Score 0 025 Utilities Answer Date Recorded In the past 12 months has th e [employer], gas, oil, or water [employer] threatened to shut off services in your [...] going to have a para tomorrow at [facility]. He is only on 40/100 - if they have to drain him do you want to increase his diuretics? documented in this encounter Plan of Treatment Upcoming Encounters Date Type Department Care Team (Late st Contact Info) Description 10/18/2025 4:20 PM EST Office Visit Professional [employer] [facility] [address], [address] [place] [address] Moustapha Katz MD [address] [facility] [address] [place] [address] 11/27/2025 3:45 PM EST Office Visit Medical Office Building Urology [address] [facility], [address] [place] [address] Suhail Brock MD [address] [facility] [address] [place] [address] 12/12/2025 8:30 AM EST Clinical Support [facility] [place] [address] [facility] [address] [place] [address] 12/12/2025 10:00 AM EST Office Visit [facility] [place] [address] [facility] [address] [place] [address] Portia Maguire MD [address] [facility] [address] [place] [address] documented as of this encounter [...] documented as of this encounter Care Teams Teacher Aide Relationship Specialty [place] [address] PCP - General 03/14/25 Ruma Hernández APRN [address] [facility] [address] [place] [address] Referring Physician Gastroenterology 07/30/23 documented as of this encounter
--- OUTSIDE RECORDS SUMMARY | 2025-10-08 07:18 | XMS_ITS | Encounter Summary ---
Author Organization [facility] Address [address] [place] [address] Care Team Providers Care Casting Inspector Name Role Phone System, Provider Not In [...] release of HIV test results or diagnoses. [id number] Reason for Visit * Reason Comments Prior Authorization Encounter Details Date Type Department Care Team (Late st Contact Info) Description 09/18/2025 Pharmacy Services [facility] [address] [place] [address] Delaney Bahena RXT Social History Tobacco Use [...] documented as of this encounter Care Teams Casting Inspector Relationship Specialty Start Date End Date System, Provider Not In PCP - General 09/10/25 documented as of this encounter
[2025-10-08 08:12] LABS: Hematocrit 32.6 % (42.0-52.0); Hemoglobin 10.8 g/dL (14.1-18.0); Immature Granulocytes % 0.3 %; Mean Corpuscular HGB Conc 33.1 g/dL (31.8-35.4); Mean Corpuscular Hemoglobin 33.4 pg (27.0-31.2); Mean Corpuscular Volume 100.9 fl (80-94); Nucleated Red Blood Cells % 0 %; Platelet Count 71 K/mm3 (142-424); Red Blood Count 3.23 M/mm3 (4.60-6.20); Red Cell Distribution Width-SD 59.1 fL; White Blood Count 3.3 K/mm3 (4.8-10.8)
[2025-10-08 08:30] LABS: Activated Partial Thrombo Time 40.6 seconds (22.8-30.6); INR 1.59 (0.9-1.1); Prothrombin Time 17.1 seconds (10.1-12.5)
[2025-10-08 08:39] LABS: Alanine Aminotransferase 30 U/L (12-78); Albumin Level 2.3 g/dl (3.5-5.0); Albumin/Globulin Ratio 0.5 (1.1-1.8); Alkaline Phosphatase 168 U/L (38-126); Anion Gap 4.9 mEq/L (5-15); Aspartate Amino Transferase 45 U/L (17-59); Bilirubin,Total 4.2 mg/dl (0.2-1.3); Blood Urea Nitrogen 14 mg/dl (9-20); Calcium 8.3 mg/dl (8.4-10.2); Carbon Dioxide 25 mmol/L (22.0-30.0); Chloride 109 mmol/L (98-107); Creatinine,Serum 0.70 mg/dl (0.66-1.25); Estimated Glomerular Filt Rate 114 ml/min (>60); GFR (African American) 137 ML/MIN (>60); Globulin 4.3 g/dL (1.3-3.2); Glucose 84 mg/dl (74-100); Potassium 3.9 mmoL/L (3.5-5.1); Sodium 135 mmol/L (136-145); Total Protein,Serum 6.6 g/dl (6.3-8.2)
== END 2025-10-08 23:59 | disposition home or self-care (01) ==
LOC: LAB 07:14
PROVIDERS: PCP Family Medicine; Visit Provider Physician Assistant
DX: K72.90 Hepatic failure, unspecified without coma (principal)
CPT/HCPCS: 36415; 80053; 85025; 85610; 85730

== ENCOUNTER 2025-10-24 07:17 | Outpatient (CLI) | payer BC, SELFPAY ==
--- OUTSIDE RECORDS SUMMARY | 2023-08-27 07:34 | XMS_ITS | Encounter Summary ---
[facility] Address [address] [place] [address] Care Team Providers Care Financial Coach Name Role Phone Karon Urban Jc DO Primary Care Provider +1 -[phone] Encounter Details Date Type Department Care Team (Late st Contact Info) Description 08/27/2023 8:34 AM EDT Hospital Encounter [facility] PULMONARY & CRITICAL CARE MEDICINE [address] [place] [phone] Social History Tobacco Use Types Packs/Day [...] on filedocumented in this encounter Care Teams Financial Coach Relationship Specialty Start Date End Date Urban Brantley DO [address] [place] [address] [place] [address] PCP - General Internal Medicine 03/22/23 documented as of this encounter
--- OUTSIDE RECORDS SUMMARY | 2025-09-08 19:31 | XMS_ITS | Encounter Summary ---
Author Organization [facility] Address [address] [place] [address] Care Team Providers Care Middle School Spanish Teacher Name Role Phone Unknown, Attending Provider Primary [...] release of HIV test results or diagnoses. [id number] Health Encounter Details Date Type Department Care Team (Latest Contact Info) Description 09/08/2025 8:31 PM EDT - 09/08/2025 8:33 PM EDT Hospital Encounter [facility] Radiology [address] [place] [address] System, Provider Not In Discharge Disposition: Home [...] this encounter Medications at Time of Discharge calcitRIOL (ROCALTROL) 0.25 MCG capsule Take 1 [...] mouth 2 times a day. 01/15/2025 10/18/2025 carvediloL (COREG) 3.125 MG tablet Take 1 tablet (3.125 mg total) by mouth 2 times a day. 06/02/2023 09/13/2025 documented as of this encounter Plan of Treatment Not on file documented as of this encounter Procedures Procedure Name Priority Date/Time Associated Diagnosis Comments US OUTSIDE EXAM Routine 09/08/2025 8:31 PM EDT documented in this encounter Results * US Outside Exam (09/08/2025 8:31 PM EDT) Narrative 09/08/2025 8:31 PM EDT Images associated with this accession number were presented to us for comparison to an examination performed here. us Provider Not In System IMG US ORDERABLES Final R esult documented in this encounter Visit Diagnoses Not on filedocumented in this encounter Care Teams Middle School Spanish Teacher Relationship Specialty Start Date End Date Unknown, Attending Provider PCP - General 08/29/2508/16 documented as of this encounter
--- OUTSIDE RECORDS SUMMARY | 2025-09-08 19:31 | XMS_ITS | Encounter Summary ---
Author Organization Address [address] [place] [address] Care Team Providers Care Chisel Worker Name Role Phone Unknown, Attending Provider Primary [...] release of HIV test results or diagnoses. [id number] Reason for Referral * Imaging/Cardiovascular Scan (Routine) - New Request Specialty Diagnoses / Procedures Referred By Contac t Referred To Contact Radiology Procedures CT Abdomen and or Pelvis Outside Exam System, Provider Not In [address] [address] Referral ID Status Reason Start Date Expiration Date V isits Requested Visits Authorized [id number] New Request 09/08/2025 03/07/2026 1 1 Reason for Visit * Imaging/Cardiovascular Scan (Routine) - New Request Specialty Diagnoses / Procedures Referred By Contac t Referred To Contact Radiology Procedures CT Abdomen and or Pelvis Outside Exam System, Provider Not In [address] [address] Referral ID Status Reason Start Date Expiration Date V isits Requested Visits Authorized [id number] New Request 09/08/2025 03/07/2026 1 1 Encounter Details Date Type Department Care Team (Latest Contact Info) Description 09/08/2025 8:31 PM EDT - 09/08/2025 8:33 PM EDT Hospital Encounter [facility] Radiology [address] [place] [address] System, Provider Not In Discharge Disposition: Home [...] on filedocumented in this encounter Care Teams Chisel Worker Relationship Specialty Start Date End Date Unknown, Attending Provider PCP - General 08/29/2508/16 documented as of this encounter
--- OUTSIDE RECORDS SUMMARY | 2025-09-08 19:34 | XMS_ITS | Encounter Summary ---
Author Organization [facility] Address [address] [place] [address] Care Team Providers Care Skill Labor Name Role Phone Unknown, Attending Provider Primary [...] release of HIV test results or diagnoses. [id number] Health Encounter Details Date Type Department Care Team (Latest Contact Info) Description 09/08/2025 8:34 PM EDT - 09/08/2025 11:59 PM EDT Hospital Encounter [facility] Radiology [address] [place] [address] System, Provider Not In Discharge Disposition: Home [...] Diagnosis Comments US OUTSIDE EXAM Routine 09/08/2025 8:34 PM EDT documented in this encounter Results * US Outside Exam (09/08/2025 8:34 PM EDT) Narrative 09/08/2025 8:34 PM EDT Images associated with this accession number were presented to us for comparison to an examination performed here. us Provider Not In System IMG US ORDERABLES Final R esult documented in this encounter Visit Diagnoses Not on filedocumented in this encounter Care Teams Skill Labor Relationship Specialty Start Date End Date Unknown, Attending Provider PCP - General 08/29/2508/16 documented as of this encounter
--- OUTSIDE RECORDS SUMMARY | 2025-09-10 09:03 | XMS_ITS | Encounter Summary ---
Author Organization [facility] Address [address] [place] [address] Care Team Providers Care Director Content Marketing Name Role Phone System, Provider Not In [...] release of HIV test results or diagnoses. [id number] Reason for Referral * Imaging/Cardiovascular Scan (Routine) - Closed Specialty Diagnoses / Procedures Referred By Gianna reyes Referred To Contact Radiology Diagnoses Pre-transplant evaluation for chronic liver disease Procedures CT Chest WO contrast [facility] Liver Transplant at [address] [address] Phone: tel: fax: Referral ID Status Reason Start Date Expiration Date Visits Re quested Visits Authorized [id number] Closed 08/13/2025 02/09/2026 1 1 Reason for Visit * Auth/Cert (Routine) Specialty Diagnoses / Procedures Referred By Gianna reyes Referred To Contact Radiology [facility] [address] [place] [address] Phone: tel: Referral ID Status Reason Start Date Expiration Date Visits Re quested Visits Authorized [id number] 1 1 Encounter Details Date Type Department Care Team (Latest Contact Info) Description 09/10/2025 10:03 AM EDT - 09/10/2025 11:59 PM EDT Hospital Encounter [facility] [address] [place] [phone] Nigel Reaves MD [address] [place] [address] Pre-transplant evaluation for chronic liver [...] within the right upper lobe with downstream pbdt-xd-hlvtmkkvcrgue within the paramedian right upper lobe apex. [...] Time PHQ-9 Depression Total Score: 8 09/10/20 25 11:09 AM EDT documented as of this encounter Care Teams Director Content Marketing Relationship Specialty Start Date End Date System, Provider Not In PCP - General 09/10/25 documented as of this encounter
--- OUTSIDE RECORDS SUMMARY | 2025-09-10 12:00 | XMS_ITS | Encounter Summary ---
Author Organization [facility] Address [address] [place] [id number] Care Team Providers Care Mechanic Marine Engine Name Role Phone System, Provider Not In [...] release of HIV test results or diagnoses. [id number] Reason for Visit * Reason Comments Liver Transplant Evaluation Encounter Details Date Type Department Care Team (Late st Contact Info) Description 09/10/2025 1:00 PM EDT Office Visit [facility] Liver Transplant at [address] [address] Buddy Zimmerman MD [address] [place] [address] Pre-transplant evaluation for chronic liver disease [...] Hepatology Clinic Note Name: David Pop CSN: [id number] Chief Complaint: Liver Transplant Evaluation History of [...] get MELD labs today Buddy Zimmerman MD Credit Administration Manager Medicine Division of Gastroenterology and Hepatology [1] [...] LDL Cholesterol 97 mg/dL 8:21 PM EDT [facility] Plasma 09/10/2025 5:03 PM EDT 09/10/2025 5:52 PM EDT Narrative HEALTH LAB - 09/10/2025 8:21 PM EDT Must the patient be fasting for this test?->No LDL cholesterol calculated using the Friedewald equation. us Buddy Zimmerman MD LAB BLOOD ORDERABLES Final Resul t Performing Organization Address City/[facility] Co de Phone Number [facility] [address] [facility]. [address] * ABO/Rh (09/10/2025 5:03 PM EDT) ABO Grouping A 09/10/2025 7:26 PM EDT [facility] Rh Type Positive 09/10/2025 7:26 PM EDT [facility] Blood 09/10/2025 5:03 PM EDT 09/10/2025 6:49 PM EDT us Buddy Zimmerman MD BLOOD BANK TEST ORDERABLES Final Result Performing Organization Address [facility] de Phone Number [facility] [address] [facility]. [address] * AFP tumor marker (09/10/2025 5:03 PM EDT) AFP-Tumor Marker 2.0 0.0 - 9.0 ng/mL 09/10/2025 8:52 PM EDT [facility] Serum 09/10/2025 5:03 PM EDT 09/10/2025 6:42 PM EDT Narrative [facility] - 09/10/2025 8:52 PM EDT The testing method for AFP is a chemiluminescent immunoassay manufactured by [employer] Concentrations of AFP obtained by different assay methods or kits may vary and cannot be used interchangeably. AFP results cannot be interpreted as absolute evidence of the presence or absence of malignant disease. us Buddy Zimmerman MD LAB BLOOD ORDERABLES Final Resul t [facility] [address] [facility]. [address] * Hemoglobin A1c (09/10/2025 5:03 PM EDT) Pathologist [facility] Hemoglobin A1C 4.0 4.0 - 5.6 % 09/10/2025 11:22 PM EDT [facility] Comment: Hemoglobin A1c Interpretation Guidelines: Normal: [...] ORDERABLES Final Resul t Performing Organization Address [facility] Co de Phone Number [facility] [address] [facility]. [address] * TSH (Thyroid Stimulating Hormone) (09/10/2025 5:03 PM EDT) Pathologist [facility] TSH 2.85 0.45 - 4.12 uIU/mL 09/11/2025 12:13 AM EDT [facility] Serum 09/10/2025 5:03 PM EDT 09/10/2025 6:42 PM EDT us Buddy Zimmerman MD LAB BLOOD ORDERABLES Final Resul t Performing Organization Address [facility]/ZIP Co de Phone Number [facility] [address] [facility]. [address] * (ABNORMAL) Protime-INR (09/10/2025 5:03 PM EDT) Pathologist [facility] Protime 24.2(H) 12.1 - 15.1 seconds 09/10/2025 7:00 PM EDT [facility] INR 2.0(H) 0.9 - 1.1 09/10/2025 7:00 PM EDT [facility] Comment: RECOMMENDED THERAPEUTIC RANGES USING INR : Stable oral anticoagulant therapy: 2.0 - 3.0 Mechanical prosthetic heart valve: 2.5 - 3.5 Recurrent acute myocardial infarction: 2.5 - 3.5 Plasma 09/10/2025 5:03 PM EDT 09/10/2025 6:42 PM EDT us Buddy Zimmerman MD LAB BLOOD ORDERABLES Final Resul t [facility] [address] * (ABNORMAL) Hepatic Function Panel (09/10/2025 5:03 PM EDT) Total Bilirubin 5.9(H) 0.0 - 1.5 mg/dL 09/10/2025 8:21 PM EDT [facility] Bilirubin, Direct 1.62(H) 0.00 - 0.40 mg/dL 09/10/2025 8:21 PM EDT [facility] AST 40(H) 13 - 39 U/L 09/10/2025 8:21 PM EDT [facility] ALT 29 7 - 52 U/L 09/10/2025 8:21 PM EDT [facility] Alkaline Phosphatase 136(H) 36 - 125 U/L 09/10/2025 8:21 PM EDT [facility] Total Protein 6.2(L) 6.4 - 8.9 g/dL 09/10/2025 8:21 PM EDT [facility] Albumin 2.1(L) 3.5 - 5.7 g/dL 09/10/2025 8:21 PM EDT [facility] Bilirubin, Indirect 4.28(H) 0.00 - 1.10 mg/dL 09/10/2025 8:21 PM EDT [facility] Plasma 09/10/2025 5:03 PM EDT 09/10/2025 5:52 PM EDT us Buddy Zimmerman MD LAB BLOOD ORDERABLES Final Resul t [facility] [address] [place] [address], [facility] * (ABNORMAL) Basic metabolic panel (09/10/2025 5:03 PM EDT) Sodium 142 133 - 146 mmol/L 09/10/2025 8:21 PM EDT [facility] Potassium 3.8 3.5 - 5.3 mmol/L 09/10/2025 8:21 PM EDT [facility] Chloride 110 98 - 110 mmol/L 09/10/2025 8:21 PM EDT [facility] CO2 27 21 - 33 mmol/L 09/10/2025 8:21 PM EDT [facility] Comment:High lactate dehydro genase concentrations in patient samples may cause falsely increased bicarbonate results. If markedly elevated LDH is observed or suspected, please assess results in conjunction with patient`s clinical presentation. In cases of discrepant results, consider evaluating CO2 in with a blood gas order. Anion Gap 5 3 - 16 mmol/L 09/10/2025 8:21 PM EDT [facility] BUN 10 7 - 25 mg/dL 09/10/2025 8:21 PM EDT [facility] Creatinine 0.90 0.60 - 1.30 mg/dL 09/10/2025 8:21 PM EDT [facility] Glucose 79 70 - 100 mg/dL 09/10/2025 8:21 PM EDT [facility] Calcium 7.9(L) 8.6 - 10.3 mg/dL 09/10/2025 8:21 PM EDT [facility] Osmolality, Calculated 292 278 - 305 mOsm/kg 09/10/2025 8:21 PM EDT [facility] EGFR >90 09/10/2025 8:21 PM EDT [facility] Comment: As of 2022, the estimated [...] MD LAB BLOOD ORDERABLES Final Resul t [facility] [address] * (ABNORMAL) CBC (09/10/2025 5:03 PM EDT) WBC 4.2 3.8 - 10.8 10E3/uL 09/10/2025 6:57 PM EDT [facility] RBC 3.39(L) 4.20 - 5.80 10E6/uL 09/10/2025 6:57 PM EDT [facility] Hemoglobin 11.4(L) 13.2 - 17.1 g/dL 09/10/2025 6:57 PM EDT [facility] Hematocrit 33.9(L) 38.5 - 50.0 % 09/10/2025 6:57 PM EDT [facility] MCV 100.1(H) 80.0 - 100.0 fL 09/10/2025 6:57 PM EDT [facility] MCH 33.7(H) 27.0 - 33.0 pg 09/10/2025 6:57 PM EDT [facility] MCHC 33.7 32.0 - 36.0 g/dL 09/10/2025 6:57 PM EDT [facility] RDW 18.5(H) 11.0 - 15.0 % 09/10/2025 6:57 PM EDT [facility] Platelets 66(L) 140 - 400 10E3/uL 09/10/2025 6:57 PM EDT [facility] MPV 7.8 7.5 - 11.5 fL 09/10/2025 6:57 PM EDT [facility] Whole Blood 09/10/2025 5:03 PM EDT 09/10/2025 6:33 PM EDT us Buddy Zimmerman MD LAB BLOOD ORDERABLES Final Resul t [facility] [address] * ECG 12-Lead (MUSE) (09/10/2025 12:14 PM EDT) 09/10/2025 12:1 4 PM EDT Narrative MUSE - 09/10/2025 3:28 PM EDT Ventricular Rate: 64 BPM Atrial Rate: 64 BPM P-R Interval: 190 ms QRS Duration: 84 ms QT: 464 ms QTc: 478 ms P [place]: 27 degrees R [place]: 58 degrees T [place]: 22 degrees Diagnosis Line: NORMAL SINUS RHYTHM ^ NORMAL ECG ^ No previous ECGs available ^ Confirmed by MD TIP, [facility] ([id number]) on 09/10/2025 3:28:36 PM us Buddy [...] documented as of this encounter Care Teams Mechanic Marine Engine Relationship Specialty Start Date End Date System, Provider Not In PCP - General 09/10/25 documented as of this encounter
--- OUTSIDE RECORDS SUMMARY | 2025-09-10 12:30 | XMS_ITS | Encounter Summary ---
Author Organization [facility] Address [address] [place] [address] Care Team Providers Care Vacuum Tank Tender Name Role Phone System, Provider Not In [...] release of HIV test results or diagnoses. [id number] Health Encounter Details Date Type Department Care Team (Late st Contact Info) Description 09/10/2025 1:30 PM EDT Office Visit [facility] Liver Transplant at [address] [address] [address] Troy MD [facility] [place] [address] Alcoholic cirrhosis of liver with [...] Resource Strain: Low Risk (06/15/2025) Received from [facility] Overall Financial Resource Strain (CARDIA) How hard is it for you to pay for the very basics like food, housing, medical care, and heating?: Not hard at all Food Insecurity: No Food Insecurity (06/15/2025) Received from [facility] Hunger Vital Sign Worried About Running Out of Food in the Last Year: Never true Ran Out of Food in the Last Year: Never true Transportation Needs: No Transportation Needs (06/15/2025) Received from [facility] PRAPARE - Transportation In the past 12 months, has lack of transportation kept you from medical appointments or from getting medications?: No In the past 12 months, has lack of transportation kept you from meetings, work, or from getting things needed for daily living?: No Physical Activity: Inactive (06/15/2025) Received from [facility] Exercise Vital Sign Days of Exercise per Week: 0 days Minutes of Exercise per Session: 0 min Stress: No Stress Concern Present (06/15/2025) Received from [facility] [place] of Occupational Health - Occupational Stress Questionnaire Do you feel stress - tense, restless, nervous, or anxious, or unable to sleep at night because yourmind is troubled all the time - these days?: Only a little Social Connections: Socially Integrated (06/15/2025) Received from [facility] Social Connection and Isolation Panel [NHANES] Frequency of Communication with Friends and Family: More than three times a week Frequency of Social Gatherings with Friends and Family: More than three times a week Attends Caodaism Services: More than 4 times per year Active Member of Clubs or Organizations: Yes Attends Club or Organization Meetings: Not on file Marital Status: Intimate Partner Violence: Not At Risk (06/15/2025) Received from [facility] Humiliation, Afraid, Rape, and Kick questionnaire Fear of Current or Ex-Partner: No Emotionally Abused: No Physically Abused: No Sexually Abused: No Housing Stability: Low Risk (06/15/2025) Received from [facility] Housing Stability Vital Sign Unable to Pay [...] further review Use and allocation of SCD, IT ARCHITECT, DCD and LDLT allografts discussed in detail. [...] in a facility that is approved by [facility] as meeting institutional coverage criteria for liver [...] from surgery (5%). I also explained the shelter risks of transplantation and immunosuppression including viral infection and cancer both solid organand lymphoma. --- Lane Troy MD Transplant Associate Quality Engineerfender repairer Section of Transplantation [facility] [1] Allergies Allergen Reactions Lisinopril Other [...] documented as of this encounter Care Teams Vacuum Tank Tender Relationship Specialty Start Date End Date System, Provider Not In PCP - General 09/10/25 documented as of this encounter
--- OUTSIDE RECORDS SUMMARY | 2025-09-10 13:00 | XMS_ITS | Encounter Summary ---
Author Organization [facility] Address [address] [place] [id number] Care Team Providers Care Global Climate Change Researcher Name Role Phone System, Provider Not In [...] release of HIV test results or diagnoses. [id number] Reason for Visit * Reason Comments ID Consult Visit (Follow Up) Liver Transplant Pre-evaluation Encounter Details Date Type Department Care Team (Late st Contact Info) Description 09/10/2025 2:00 PM EDT Office Visit [facility] Liver Transplant at [address] [id number] Unknown, Attending Provider Navi Sims MD [address] [place] [phone] Pre-transplant evaluation for chronic liver disease [...] Disease Pre-Transplant Consultation Patient: David Pop CSN: [id number] Chief Complaint Pre-transplant evaluation, infectious History of Present Illness David Pop is a 65 y.o. 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 Childhood immunizations and illnesses: got all childhood vaccines, still has tonsils, no PE tubes. Unsure if had measles, mumps. Unsure if had VZV. Places of habitation and travel: [place], no [place] travel. International to [employer] for work, worked for [employer], making [email or web address]. Lives with , 3 cats, does the cat litter box. No other pets. Hobbies: fish. Discussed hot tub avoidance. No known TB exposure, no homeless, no prison, no ivdu, no healthcare work. Current vaccinations: [...] Resource Strain: Low Risk (06/15/2025) Received from [facility] Overall Financial Resource Strain (CARDIA) How hard is it for you to pay for the very basics like food, housing, medical care, and heating?: Not hard at all Food Insecurity: No Food Insecurity (06/15/2025) Received from [facility] Hunger Vital Sign Worried About Running Out of Food in the Last Year: Never true Ran Out of Food in the Last Year: Never true Transportation Needs: No Transportation Needs (06/15/2025) Received from [facility] PRAPARE - Transportation In the past 12 months, has lack of transportation kept you from medical appointments or from getting medications?: No In the past 12 months, has lack of transportation kept you from meetings, work, or from getting things needed for daily living?: No Physical Activity: Inactive (06/15/2025) Received from [facility] Exercise Vital Sign Days of Exercise per Week: 0 days Minutes of Exercise per Session: 0 min Stress: No Stress Concern Present (06/15/2025) Received from [facility] [employer] [facility] - Occupational Stress Questionnaire Do you feel stress - tense, restless, nervous, or anxious, or unable to sleep at night because yourmind is troubled all the time - these days?: Only a little Social Connections: Socially Integrated (06/15/2025) Received from [facility] Social Connection and Isolation Panel [NHANES] Frequency of Communication with Friends and Family: More than three times a week Frequency of Social Gatherings with Friends and Family: More than three times a week Attends Amish Services: More than 4 times per year Active Member of Clubs or Organizations: Yes Attends Club or Organization Meetings: Not on file Marital Status: Intimate Partner Violence: Not At Risk (06/15/2025) Received from [facility] Humiliation, Afraid, Rape, and Kick questionnaire Fear of Current or Ex-Partner: No Emotionally Abused: No Physically Abused: No Sexually Abused: No Housing Stability: Low Risk (06/15/2025) Received from [facility] Housing Stability Vital Sign Unable [...] A) Negative S/CO 09/10/2025 11:[address] [facility] Comment:Result indicates the presence of detectable VZV IgG antibodies. A positive result is generally indicative of exposure to the pathogen or administration of specific immunoglobulins, but it is no indication of active infection or stage of disease. This test is not approved for determining vaccine-induced immunity to varicella zoster virus. VZV NUM 15.50(H) 0.00 - 0.99 S/CO 09/10/2025 11:[address] [facility] Serum 09/10/2025 5:03 PM EDT 09/10/2025 10:26 PM EDT Navi Sims MD LAB BLOOD ORDERABLES Final Resu lt Performing Organization Address [facility] Co de Phone Number [facility] [address] * QuantiFERON TB2 Ag (09/10/2025 5:03 PM EDT) Pathologist [facility] QuantiFERON TB2 Ag Value 0.09 09/12/2025 1:[address] [facility] Plasma 09/10/2025 5:03 PM EDT 09/10/2025 6:29 PM EDT Navi Sims MD LAB BLOOD ORDERABLES Final Resu lt Performing Organization Address City/[facility]/ZIP Co de Phone Number [facility] [address] * QuantiFERON TB1 Ag (09/10/2025 5:03 PM EDT) QuantiFERON TB1 Ag Value 0.08 09/12/2025 1:[address] [facility] Plasma 09/10/2025 5:03 PM EDT 09/10/2025 6:29 PM EDT Navi Sims MD LAB BLOOD ORDERABLES Final Resu lt [facility] [address] [facility] * QuantiFERON Nil (09/10/2025 5:03 PM EDT) Pathologist [facility] QuantiFERON Nil 0.02 1:[address] [facility] Plasma 09/10/2025 5:03 PM EDT 09/10/2025 6:29 PM EDT Navi Sims MD LAB BLOOD ORDERABLES Final Resu lt Performing Organization Address City/[facility]/ZIP Co de Phone Number [facility] [address] [facility] * QuantiFERON Mitogen (09/10/2025 5:03 PM EDT) Pathologist [facility] QuantiFERON Interpretation Negative Negative 09/12/2025 1:[address] [facility] Comment:Negative result pilar cates M. tuberculosis infection is NOT likely. Negative results do not preclude tuberculosis infection (especially in immunosuppressed patients). Negative results have a TB antigen minus Nil value less than 0.35 IU/mL. In cases with high suspicion of disease, retesting or additional testing with medical evaluation may be useful. QuantiFERON Mitogen 8.77 09/12 1:[address] [facility] Plasma 09/10/2025 5:03 PM EDT 09/10/2025 6:29 PM EDT Narrative [facility] - 09/12/2025 1:19 PM EDT [...] ORDERABLES Final Resu lt Performing Organization Address City/[facility]/ZIP Co de Phone Number [facility] [address] [facility] * (ABNORMAL) Strongyloides Ab (09/10/2025 5:03 PM EDT) Pathologist [facility] Strongyloides Ab Positive( A) Negative 09/17/2025 2:[address] [facility] Serum 09/10/2025 5:03 PM EDT 09/17/2025 3:07 PM EST Narrative [facility] - 09/17/2025 3:07 PM EST PERFORMED AT: [address] [id number] COLLECTIONS REP: Kevin Holguin MD PHONE: [phone] Navi Sims MD LAB BLOOD ORDERABLES Final Resu lt Performing Organization Address City/[facility] Co de Phone Number [facility] [address] [facility] * Toxoplasma gondii antibody, IgG (09/10/2025 5:03 PM EDT) Pathologist [facility] Toxoplasma Gondii IgG <3.0 0.0 - 7.1 IU/mL 09/12/2025 6:[address] [facility] Comment: Negative <7.2 Equivocal 7.2 - 8.7 Positive >8.7 Serum 09/10/2025 5:03 PM EDT 09/12/2025 7:06 AM EDT Narrative [facility] - 09/12/2025 7:06 AM EDT PERFORMED AT: [facility] [address] [id number] COLLECTIONS REP: Mateo Miller, PhD PHONE: [phone] Navi Sims MD LAB BLOOD ORDERABLES Final Resu lt [facility] [address] [address] * Syphilis Screening (Trepia) (09/10/2025 5:03 PM EDT) Treponema Pallidum Negative Negative 09/10/2025 11:[address] [facility] Comment: No serological evidence of infection with Treponema pallidum (incubating or early primary syphilis cannot be excluded). Serum 09/10/2025 5:03 PM EDT 09/10/2025 10:26 PM EDT Navi Sims MD LAB BLOOD ORDERABLES Final Resu lt [facility] [address] [facility]. [address] * (ABNORMAL) MMR(IgG) Panel (Measles, Mumps, Rubella) (09/10/2025 5:03 PM EDT) Mumps IgG Positive 09/10/2025 11:[address] [facility] MUMPS IGG NUM >300.00(H) 0.0 - 8.9 U/mL 09/10/2025 11:[address] [facility] Rubella IgG Scr Positive 09/10/2025 11:[address] [facility] RUB NUM 30.20(H) 0.0 - 0.8 INDEX 09/10/2025 11:[address] [facility] Rubeola Ab, IgG Positive 09/10/2025 11:[address] [facility] RUB IGG NUM >300.00(H) 0.00 - 13.40 U/mL 09/10/2025 11:50 PM EDT [facility] Serum 09/10/2025 5:03 PM EDT 09/10/2025 10:26 PM EDT Narrative [facility] - 09/10/2025 11:51 PM EDT Presence [...] MD LAB BLOOD ORDERABLES Final Resu lt [facility] [address] [place] [address], [facility] documented in this encounter Visit Diagnoses [...] documented as of this encounter Care Teams Global Climate Change Researcher Relationship Specialty Start Date End Date System, Provider Not In PCP - General 09/10/25 documented as of this encounter
--- OUTSIDE RECORDS SUMMARY | 2025-09-10 15:35 | XMS_ITS | Encounter Summary ---
Author Organization [facility] Address [address] [place] [id number] Care Team Providers Care Clinical Appeals Auditor Name Role Phone System, Provider Not In [...] release of HIV test results or diagnoses. [id number] Reason for Visit * Auth/Cert (Routine) Specialty Diagnoses / Procedures Referred By Gianna reyes Referred To Contact Radiology [facility] [address] [place] [address] Phone: tel: Referral ID Status Reason Start Date Expiration Date Visits Re quested Visits Authorized [id number] 1 1 Encounter Details Date Type Department Care Team (Late st Contact Info) Description 09/10/2025 4:35 PM EDT Specimen [facility] [address] [place] [id number] Buddy Zimmerman MD [address] [place] [address] Alcoholic cirrhosis of liver with [...] - 0.99 S/CO 09/10/2025 11:49 PM EDT [facility] Serum 09/10/2025 5:03 PM EDT 09/10/2025 10:26 PM EDT Navi Sims MD LAB BLOOD ORDERABLES Final Resu lt [facility] [address] [place] [address]. [address] * QuantiFERON TB2 Ag (09/10/2025 5:03 PM EDT) QuantiFERON TB2 Ag Value 0.09 09/12/2025 1:19 PM EDT [facility] Plasma 09/10/2025 5:03 PM EDT 09/10/2025 6:29 PM EDT Navi Sims MD LAB BLOOD ORDERABLES Final Resu lt [facility] [address] [facility]. [address] * QuantiFERON TB1 Ag (09/10/2025 5:03 PM EDT) QuantiFERON TB1 Ag Value 0.08 09/12/2025 1:19 PM EDT [facility] Plasma 09/10/2025 5:03 PM EDT 09/10/2025 6:29 PM EDT Navi Sims MD LAB BLOOD ORDERABLES Final Resu lt [facility] [address] [place] [address]. [address] * QuantiFERON Nil (09/10/2025 5:03 PM EDT) QuantiFERON Nil 0.02 1:19 PM EDT [facility] Plasma 09/10/2025 5:03 PM EDT 09/10/2025 6:29 PM EDT Navi Sims MD LAB BLOOD ORDERABLES Final Resu lt Performing Organization Address [facility]/ZIP Co de Phone Number [facility] [address] [facility]. [address] * QuantiFERON Mitogen (09/10/2025 5:03 PM EDT) Pathologist [facility] QuantiFERON Interpretation Negative Negative 09/12/2025 1:19 PM EDT [facility] Comment:Negative result pilar cates M. tuberculosis infection is NOT likely. Negative results do not preclude tuberculosis infection (especially in immunosuppressed patients). Negative results have a TB antigen minus Nil value less than 0.35 IU/mL. In cases with high suspicion of disease, retesting or additional testing with medical evaluation may be useful. QuantiFERON Mitogen 8.77 09/12 1:19 PM EDT [facility] Plasma 09/10/2025 5:03 PM EDT 09/10/2025 6:29 PM EDT Narrative [facility] - 09/12/2025 1:19 PM EDT [...] MD LAB BLOOD ORDERABLES Final Resu lt [facility] [address] [facility] [place] [address], [facility] * (ABNORMAL) Strongyloides Ab (09/10/2025 5:03 PM EDT) Pathologist [facility] Strongyloides Ab Positive( A) Negative 09/17/2025 2:56 PM EST [facility] Serum 09/10/2025 5:03 PM EDT 09/17/2025 3:07 PM EST Narrative [facility] - 09/17/2025 3:07 PM EST PERFORMED AT: [facility] [address] [id number] HVAC PROJECT MANAGER: Kevin Holguin MD PHONE: [phone] Navi Sims MD LAB BLOOD ORDERABLES Final Resu lt Performing Organization Address [facility] [[email or web address]] Co de Phone Number [facility] [address] [facility]. [address] * Toxoplasma gondii antibody, IgG (09/10/2025 5:03 PM EDT) Toxoplasma Gondii IgG <3.0 0.0 - 7.1 IU/mL 09/12/2025 6:21 AM EDT [facility] Comment: Negative <7.2 Equivocal 7.2 - 8.7 Positive >8.7 Serum 09/10/2025 5:03 PM EDT 09/12/2025 7:06 AM EDT Narrative [facility] - 09/12/2025 7:06 AM EDT PERFORMED AT: [facility] [address] [id number] HVAC PROJECT MANAGER: Mateo Miller, PhD PHONE: [phone] Navi Sims MD LAB BLOOD ORDERABLES Final Resu lt Performing Organization Address City/[facility]/ZIP Co de Phone Number [facility] [address] [facility]. [address] * Syphilis Screening (Trepia) (09/10/2025 5:03 PM EDT) Treponema Pallidum Negative Negative 09/10/2025 11:55 PM EDT [facility] Comment: No serological evidence of infection with Treponema pallidum (incubating or early primary syphilis cannot be excluded). Serum 09/10/2025 5:03 PM EDT 09/10/2025 10:26 PM EDT Navi Sims MD LAB BLOOD ORDERABLES Final Resu lt [facility] [address] [facility]. [address] * (ABNORMAL) MMR(IgG) Panel (Measles, Mumps, Rubella) (09/10/2025 5:03 PM EDT) Mumps IgG Positive 09/10/2025 11:51 PM EDT [facility] MUMPS IGG NUM >300.00(H) 0.0 - 8.9 U/mL 09/10/2025 11:51 PM EDT [facility] Rubella IgG Scr Positive 09/10/2025 11:51 PM EDT [facility] RUB NUM 30.20(H) 0.0 - 0.8 INDEX 09/10/2025 11:51 PM EDT [facility] Rubeola Ab, IgG Positive 09/10/2025 11:50 PM EDT [facility] RUB IGG NUM >300.00(H) 0.00 - 13.40 U/mL 09/10/2025 11:50 PM EDT [facility] Serum 09/10/2025 5:03 PM EDT 09/10/2025 10:26 PM EDT Narrative [facility] - 09/10/2025 11:51 PM EDT [...] MD LAB BLOOD ORDERABLES Final Resu lt [facility] [address] [facility]. [address] * (ABNORMAL) Lipid Profile (09/10/2025 5:03 [...] - 149 mg/dL 09/10/2025 8:21 PM EDT [facility] HDL 26(L) 60 - 92 mg/dL 09/10/2025 8:21 PM EDT [facility] Comment: LIPID PROFILE INTERPRETATION CHOLESTEROL,TOTAL(mg/dL) [...] LDL Cholesterol 97 mg/dL 8:21 PM EDT [facility] Plasma 09/10/2025 5:03 PM EDT 09/10/2025 5:52 PM EDT Narrative [facility] - 09/10/2025 8:21 PM EDT Must the patient be fasting for this test?->No LDL cholesterol calculated using the Friedewald equation. us Buddy Zimmerman MD LAB BLOOD ORDERABLES Final Resul t [facility] [address] * ABO/Rh (09/10/2025 5:03 PM EDT) ABO Grouping A 09/10/2025 7:26 PM EDT [facility] Rh Type Positive 09/10/2025 7:26 PM EDT [facility] Blood 09/10/2025 5:03 PM EDT 09/10/2025 6:49 PM EDT Buddy Zimmerman MD BLOOD BANK TEST ORDERABLES Final Result [facility] [address] * AFP tumor marker (09/10/2025 5:03 PM EDT) Pathologist [facility] AFP-Tumor Marker 2.0 0.0 - 9.0 ng/mL 09/10/2025 8:52 PM EDT [facility] Serum 09/10/2025 5:03 PM EDT 09/10/2025 6:42 PM EDT Narrative [facility] - 09/10/2025 8:52 PM EDT The testing method for AFP is a chemiluminescent immunoassay manufactured by [employer] Concentrations of AFP obtained by different assay methods or kits may vary and cannot be used interchangeably. AFP results cannot be interpreted as absolute evidence of the presence or absence of malignant disease. Buddy Zimmerman MD LAB BLOOD ORDERABLES Final Resul t Performing Organization Address City/[facility] [[email or web address]] Co de Phone Number [facility] [address] * Hemoglobin A1c (09/10/2025 5:03 PM EDT) Pathologist [facility] Hemoglobin A1C 4.0 4.0 - 5.6 % 09/10/2025 11:22 PM EDT [facility] Comment: Hemoglobin A1c Interpretation Guidelines: [...] ORDERABLES Final Resul t Performing Organization Address City/[facility] [[email or web address]] Co de Phone Number [facility] [address] [facility]. [address] * TSH (Thyroid Stimulating Hormone) (09/10/2025 5:03 PM EDT) TSH 2.85 0.45 - 4.12 uIU/mL 09/11/2025 12:13 AM EDT [facility] Serum 09/10/2025 5:03 PM EDT 09/10/2025 6:42 PM EDT us Buddy Zimmerman MD LAB BLOOD ORDERABLES Final Resul t Performing Organization Address [facility] [[email or web address]] Co de Phone Number [facility] [address] [facility]. [address] * (ABNORMAL) Protime-INR (09/10/2025 5:03 PM EDT) Protime 24.2(H) 12.1 - 15.1 seconds 09/10/2025 7:00 PM EDT [facility] INR 2.0(H) 0.9 - 1.1 09/10/2025 7:00 PM EDT [facility] Comment: RECOMMENDED THERAPEUTIC RANGES USING INR : Stable oral anticoagulant therapy: 2.0 - 3.0 Mechanical prosthetic heart valve: 2.5 - 3.5 Recurrent acute myocardial infarction: 2.5 - 3.5 Plasma 09/10/2025 5:03 PM EDT 09/10/2025 6:42 PM EDT Result Neto Zimmerman MD LAB BLOOD ORDERABLES Final Resul t Performing Organization Address [facility] [[email or web address]] Co de Phone Number [facility] [address] [facility]. [address] * (ABNORMAL) Hepatic Function Panel (09/10/2025 5:03 PM EDT) Total Bilirubin 5.9(H) 0.0 - 1.5 mg/dL 09/10/2025 8:21 PM EDT [facility] Bilirubin, Direct 1.62(H) 0.00 - 0.40 mg/dL 09/10/2025 8:21 PM EDT [facility] AST 40(H) 13 - 39 U/L 09/10/2025 8:21 PM EDT [facility] ALT 29 7 - 52 U/L 09/10/2025 8:21 PM EDT [facility] Alkaline Phosphatase 136(H) 36 - 125 U/L 09/10/2025 8:21 PM EDT [facility] Total Protein 6.2(L) 6.4 - 8.9 g/dL 09/10/2025 8:21 PM EDT [facility] Albumin 2.1(L) 3.5 - 5.7 g/dL 09/10/2025 8:21 PM EDT [facility] Bilirubin, Indirect 4.28(H) 0.00 - 1.10 mg/dL 09/10/2025 8:21 PM EDT [facility] Plasma 09/10/2025 5:03 PM EDT 09/10/2025 5:52 PM EDT us Buddy Zimmerman MD LAB BLOOD ORDERABLES Final Resul t [facility] [address] * (ABNORMAL) Basic metabolic panel (09/10/2025 5:03 PM EDT) Sodium 142 133 - 146 mmol/L 09/10/2025 8:21 PM EDT [facility] Potassium 3.8 3.5 - 5.3 mmol/L 09/10/2025 8:21 PM EDT [facility] Chloride 110 98 - 110 mmol/L 09/10/2025 8:21 PM EDT [facility] CO2 27 21 - 33 mmol/L 09/10/2025 8:21 PM EDT [facility] Comment:High lactate dehydro genase concentrations in patient samples may cause falsely increased bicarbonate results. If markedly elevated LDH is observed or suspected, please assess results in conjunction with patient`s clinical presentation. In cases of discrepant results, consider evaluating CO2 in with a blood gas order. Anion Gap 5 3 - 16 mmol/L 09/10/2025 8:21 PM EDT [facility] BUN 10 7 - 25 mg/dL 09/10/2025 8:21 PM EDT [facility] Creatinine 0.90 0.60 - 1.30 mg/dL 09/10/2025 8:21 PM EDT [facility] Glucose 79 70 - 100 mg/dL 09/10/2025 8:21 PM EDT [facility] Calcium 7.9(L) 8.6 - 10.3 mg/dL 09/10/2025 8:21 PM EDT [facility] Osmolality, Calculated 292 278 - 305 mOsm/kg 09/10/2025 8:21 PM EDT [facility] EGFR >90 09/10/2025 8:21 PM EDT [facility] Comment: As of 2022, the [...] MD LAB BLOOD ORDERABLES Final Resul t [facility] [address] * (ABNORMAL) CBC (09/10/2025 5:03 PM EDT) WBC 4.2 3.8 - 10.8 10E3/uL 09/10/2025 6:57 PM EDT [facility] RBC 3.39(L) 4.20 - 5.80 10E6/uL 09/10/2025 6:57 PM EDT [facility] Hemoglobin 11.4(L) 13.2 - 17.1 g/dL 09/10/2025 6:57 PM EDT [facility] Hematocrit 33.9(L) 38.5 - 50.0 % 09/10/2025 6:57 PM EDT [facility] MCV 100.1(H) 80.0 - 100.0 fL 09/10/2025 6:57 PM EDT [facility] MCH 33.7(H) 27.0 - 33.0 pg 09/10/2025 6:57 PM EDT [facility] MCHC 33.7 32.0 - 36.0 g/dL 09/10/2025 6:57 PM EDT [facility] RDW 18.5(H) 11.0 - 15.0 % 09/10/2025 6:57 PM EDT [facility] Platelets 66(L) 140 - 400 10E3/uL 09/10/2025 6:57 PM EDT [facility] MPV 7.8 7.5 - 11.5 fL 09/10/2025 6:57 PM EDT [facility] Whole Blood 09/10/2025 5:03 PM EDT 09/10/2025 6:33 PM EDT us Buddy Zimmerman MD LAB BLOOD ORDERABLES Final Resul t [facility] [address] [facility]. [address] documented in this encounter Visit Diagnoses Diagnosis Alcoholic cirrhosis of liver with ascites (CMS-HCC) Pre-transplant evaluation for chronic liver disease documented in this encounter Additional Health Concerns Assessment Noted Time PHQ-9 Depression Total Score: 8 09/10/20 25 11:09 AM EDT documented as of this encounter Care Teams Clinical Appeals Auditor Relationship Specialty Start Date End Date System, Provider Not In PCP - General 09/10/25 documented as of this encounter
--- OUTSIDE RECORDS SUMMARY | 2025-09-12 07:47 | XMS_ITS | Encounter Summary ---
Author Organization Healthcare Address [address] [place] [address] Care Team Providers Care Mathematical Scientist Name Role Phone Ruma Hernández ASSISTANT PROFESSOR OF RELIGION Unavailable [phone] Chris Medel MD Primary Care Provider [phone] Reason for Referral * Imaging (Routine) - Closed Specialty Diagnoses / Procedures Referred By Gianna reyes Referred To Contact Radiology Diagnoses Pre-liver transplant, listed Procedures MR Abdomen w and wo IV Contrast Portia Maguire MD [address] [address] Phone: tel: fax: Referral ID Status Reason Start Date Expiration Date Visits Re quested Visits Authorized [id number] Closed 09/05/2025 03/07/2027 1 1 Reason for Visit * Imaging (Routine) - Closed Specialty Diagnoses / Procedures Referred By Gianna reyes Referred To Contact Radiology Diagnoses Pre-liver transplant, listed Procedures MR Abdomen w and wo IV Contrast Portia Maguire MD [address] [address] Phone: tel: fax: Referral ID Status Reason Start Date Expiration Date Visits Re quested Visits Authorized [id number] Closed 09/05/2025 03/07/2027 1 1 Encounter Details Date Type Department Care Team (Latest Contact Info) Description 09/12/2025 8:47 AM EDT - 09/12/2025 11:59 PM EDT Hospital Encounter [facility] Radiology [address] [place] [address] Pre-liver transplant, listed Discharge Disposition: [...] often do you attend chur ch or mandaeism services? More than 4 times per year 02/19/2025 Do you belong to any clubs o r organizations such as orthodoxy groups, unions, fraternal or athletic groups, or [...] week 06/15/2025 How often do you attend [facility] or mandaeism services? More than 4 times per year 06/15/2025 Do you belong to any clubs o r organizations such as orthodoxy groups, unions, fraternal or athletic groups, or [...] at all 06/15/2025 [facility] ional [facility] - Occupational [...] drink first t luisa in the morning (EYE-VISUAL TRAINING AIDE) to steady your nerves or to [...] 11 09/13/2024 ergocalciferol (Vitamin D-2) 1.25 MG (25660 UT) capsule Take 1 capsule by mouth [...] must be assessed by a doctor. Call [phone] if you are alone and your reaction [...] Visit Medical Office Building Urology [address] [facility], [address] [place] [address] Suhail Brock MD [address] [place] [address] 12/12/2025 8:30 AM EST Clinical Support [facility] [address] [place] [address] 12/12/2025 10:00 AM EST Office Visit [facility] [address] [place] [address] Portia Maguire MD [address] [place] [address] documented as of this encounter Procedures Procedure [...] are consistent with and integrated into the [place] Association for the Study of Liver Diseases [...] wall edema and bilateral gynecomastia. Procedure Note uLh Fuller MD - 09/12/2025 CLINICAL INDICATION: hcc surveillance, elevated ALP TECHNIQUE: MR imaging of the abdomen was performed without and with intravenouscontrast material using the following sequences: coronal single shot [id number] fast spin echo, axial T2 weighted sequences [...] are consistent with and integrated into the [place] Associationfor the Study of Liver Diseases (AASLD) [...] on 09/12/2025 11:41 AM Portia Maguire MD IMG MRI PROCEDURES Final Result documented in this [...] documented as of this encounter Care Teams Mathematical Scientist Relationship Specialty [place] [id number] PCP - General 03/14/25 Ruma Hernández APRN [address] [place] [address] Referring Physician Gastroenterology 07/30/23 documented as of this encounter
--- OUTSIDE RECORDS SUMMARY | 2025-09-12 09:00 | XMS_ITS | Encounter Summary ---
Author Organization Healthcare Address [address] [place] [address] Care Team Providers Care Tanning Wheel Filler Name Role Phone Ruma Hernández MASTER MERCHANDISER Unavailable [phone] Chris Medel MD Primary Care Provider [phone] Encounter Details Date Type Department Care Team (Latest Contact Info) Description 09/12/2025 10:00 AM EDT Office Visit [facility] [address] [facility] [address] [place] [address] Portia Maguire MD [address] [place] [address] Pre-liver transplant, listed (Primary Dx); Cirrhosis of liver with ascites, unspecified hepatic cirrhosis type; Other ascites; Alcoholic cirrhosis, unspecified whether ascites present; Hemochromatosis associated with compound heterozygous mutation in HFE gene; Alcohol use disorder, moderate, in sustained remission; Hepatic encephalopathy (CMS/HCC) Social History Tobacco Use Types Packs/Day [...] week 02/19/2025 How often do you attend [facility] or mu-ism services? More than 4 times per year 02/19/2025 Do you belong to any clubs o r organizations such as anglican groups, [employer], [employer] or athlemyBarrister groups, or school groups? Yes 02/19/2025 How [...] week 06/15/2025 How often do you attend [facility] or mu-ism services? More than 4 times per year 06/15/2025 Do you belong to any clubs o r organizations such as anglican groups, [employer], [employer] or athlemyBarrister groups, or school groups? Yes 06/15/2025 Attends [...] Not hard at all 06/15/2025 [facility] [place] of Occupat ional Health - Occupational Stress [...] drink first t luisa in the morning (EYE-FURNACE OPERATOR) to steady your nerves or to get rid of a hangover? 0 06/14/2025 CAGE Questionnaire Score 0 025 Utilities Answer Date Recorded In the past 12 months has th [employer], gas, oil, or water company threatened to [...] Sign Reading Time Taken Comments Blood Pressure 125/75 09/12/2025 8:12 AM EDT Pulse 63 09/12/2025 8:12 AM EDT Temperature 36.8 C (98.3 F) 09/12/2025 8:12 AM EDT Respiratory Rate 16 09/12/2025 8:12 AM EDT Oxygen Saturation 97% 09/12/2025 8:12 AM EDT Inhaled Oxygen Concentration - - Weight 100 kg (220 lb 7.4 oz) 09/12/2025 8:12 AM EDT Height 167.6 cm (5' 6 ) 09/12/2025 8:12 AM EDT Body Mass Index 35.58 09/12/2025 8:12 AM EDT documented in this encounter Functional [...] Progress Notes - Portia Maguire MD - 09/12/2025 10:00 AM EDT Subjective Patient ID: Tanner Pop is a 65 y.o. male. No chief complaint on file. HPI Mr. 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, MZ phenotype for A1AT seen in follow up Recently not listed iso PNA Accompanied by Stacy Patient was last seen 07/11/25 02/07/25 ED visit for left inguinal hernia, [...] in follow up MELD 3.0: 21 at 09/12/2025 7:55 AM MELD-Na: 20 at 09/12/2025 7:55 AM Calculated from: Serum Creatinine: 0.88 mg/dL (Using min of 1 mg/dL) at 09/12/2025 7:55 AM Serum Sodium: 139 mmol/L (Using max of 137 mmol/L) at 09/12/2025 7:55 AM Total Bilirubin: 3.7 mg/dL at 09/12/2025 7:55 AM Serum Albumin: 2.1 g/dL at 09/12/2025 7:55 AM INR(ratio): 2.1 at 09/12/2025 7:55 AM Age at listin years Sex: Male at 09/12/2025 7:55 AM Accompanied by Stacy # Decompensated alcohol-associated [...] also just had first phlebotomy, diet changes/restriction. If BP okay, can start nadolol at 20mg # HCC surveillance- -US liver screen 06/13/2025: No liver lesions -CT abd 03/14/25: LI-RADS Negative -AFP normal 02/2025 - MR liver 09/12/2025: no liver lesions # Renal stones Follows with urology, current [...] [facility], [address] [place] [address] Suhail Brock MD [address] [facility] [address] [place] [address] 12/12/2025 8:30 AM EST Clinical Support [facility] [place] [address] [facility] [address] [place] [address] 12/12/2025 10:00 AM EST Office Visit [facility] [address] [facility] [address] [place] [address] Portia Maguire MD [address] [facility] [address] [place] [address] documented as of this encounter Visit Diagnoses Diagnosis Pre-liver transplant, listed- Primary Cirrhosis of liver with ascites, unspecified hepatic cirrhosis type Other ascites Alcoholic cirrhosis, unspecified whether ascites present 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, moderate, in sustained remission Hepatic encephalopathy (CMS/HCC) Hepatic encephalopathy documented in this encounter Additional Health Concerns Assessment Noted Time PHQ-9 Depression Total Score: 0 10/04/20 24 12:32 PM EST A fall risk assessment has been complete d for the patient 09/12/2025 8:14 AM EDT A Body Mass Index follow-up plan has been documented for the patient 09/17/2025 1:33 PM EST documented as of this encounter Care Teams Tanning Wheel Filler Relationship Specialty [place] [address] PCP - General 03/14/25 Ruma Hernández APRN [address] [place] [address] Referring Physician Gastroenterology 07/30/23 documented as of this encounter
--- OUTSIDE RECORDS SUMMARY | 2025-09-24 13:00 | XMS_ITS | Encounter Summary ---
Author Organization [facility] Address [address] [place] [phone] Care Team Providers Care Meat Department Manager Name Role Phone System, Provider Not [...] release of HIV test results or diagnoses. [id number] Reason for Visit * Reason Comments Liver Transplant Evaluation Encounter Details Date Type Department Care Team (Late st Contact Info) Description 09/24/2025 1:00 PM EST Office Visit [facility] Liver Transplant at [address] [phone] Nigel Reaves MD [address] [place] [phone] Esophageal varices without bleeding, unspecified esophageal [...] center. He also has dual [facility]. Liver disease diagnosed in 2022 based on [...] 2:11 PM EST) Culture Result No Growth [facility] Midstream Urine URINE SPECIMEN / Unknown 09/24/2025 2:11 PM EST 09/24/2025 3:25 PM EST us Nigel Reaves MD MICROBIOLOGY - GENERAL ORDERABLE S Final Result [facility] [address] [place] [address], [facility] * (ABNORMAL) Urinalysis w/Rfl to Microscopic (09/24/2025 2:11 PM EST) Color, UA Yellow Yellow,Straw 09/24/2025 3:25 PM EST [facility] Clarity, UA Cloudy(A) Clear 09/24/2025 3:25 PM EST [facility] Specific [place], UA 1.019 1.005 - 1.035 09/24/2025 3:25 PM EST [facility] pH, UA 6.0 5.0 - 8.0 09/24/2025 3:25 PM EST [facility] Protein, UA 30(A) Negative mg/dL 09/24/2025 3:25 PM EST [facility] Glucose, UA Negative Negative mg/dL 09/24/2025 3:25 PM EST [facility] Ketones, UA Negative Negative mg/dL 09/24/2025 3:25 PM EST [facility] Bilirubin, UA Negative Negative 09/24/2025 3:25 PM EST [facility] Blood, UA Large(A) Negative 09/24/2025 3:25 PM EST [facility] Nitrite, UA Negative Negative 09/24/2025 3:25 PM [facility] Urobilinogen, UA <2.0 0.2 - 1.9 mg/dL 09/24/2025 3:25 PM EST [facility] Leukocyte Esterase, UA Large(A) Negative 09/24/2025 3:25 PM [facility] RBC, UA 61(H) 0 - 3 /HPF 09/24/2025 3:25 PM EST [facility] WBC, UA >100(H) 0 - 5 /HPF 09/24/2025 3:25 PM EST [facility] Squam Epithel, UA 1 0 - 5 /HPF 09/24/2025 3:25 PM EST [facility] Bacteria, UA Rare(A) None Seen /HPF 09/24/2025 3:25 PM EST [facility] Mucus, UA Present(A) None Seen /HPF 09/24/2025 3:25 PM EST [facility] Urine 09/24/2025 2:11 PM EST 09/24/2025 2:51 PM EST Nigel Reaves MD URINE ORDERABLES Final Result [facility] [address] [place] [address], [facility] documented in this encounter Visit Diagnoses Diagnosis [...] as of this encounter Care Teams Meat Department Manager Relationship Specialty Start Date End Date System, Provider Not In PCP - General 09/10/25 documented as of this encounter
--- OUTSIDE RECORDS SUMMARY | 2025-10-17 08:52 | XMS_ITS | Encounter Summary ---
Author Organization [facility] Address [address] [place] [id number] Care Team Providers Care Channel Machine Operator Name Role Phone System, Provider [...] release of HIV test results or diagnoses. [id number] Health Reason for Visit * Auth/Cert (Routine) Specialty Diagnoses / Procedures Referred By Gianna t Referred To Contact Diagnoses TRANSPLANT LIVER Procedures TRANSPLANT LIVER [facility] [address] [place] [address] Phone: tel: Referral ID Status Reason Start Date Expiration Date Visits Re quested Visits Authorized [id number] 1 1 Encounter Details Date Type Department Care Team (Latest Contact Info) Description 10/17/2025 8:52 AM EST - 10/22/2025 4:06 PM EST Hospital Encounter [facility] [address] [place] [address] Vani Winkler MD [facility] [id number] S/P liver transplant (CMS-HCC) (Primary Dx); End stage liver disease (CMS-HCC) Discharge Disposition: Home WITH Home Health Care Services Social History Tobacco Use Types Packs/Day Years Used Date Smoking Tobacco: Never Smokeless Tobacco: Former Alcohol Use Standard Drinks/Week Comments Not Currently 0 (1 standard drink = 0.6 oz pur e alcohol) Sober since February 2023 AUDIT-C Answer Date Recorded Q1: How often do you have a drink containing alcohol? Never 10/17/2025 Q2: How many drinks containi ng alcohol do you have on a typical day when you are drinking? Patient does not drink Q3: How often do you have si x or more drinks on one occasion? Never 10/17/2025 PHQ-2 Answer Date Recorded PHQ-2 Total Score 0 09/10/2025 Hunger Vital Sign Answer Date Recorded Within the past 12 months, y ou worried that your food would run out before you got the money to buy more. Never true 10/17/20 25 Within the past 12 months, t he food you bought just didn't last and you didn't have money to get more. Never true 10/17/2025 PRAPARE - Transportation Answer Date Re corded In the past 12 months, has l ack of transportation kept you from medical appointments or from getting medications? No 01/2025 In the past 12 months, has l ack of transportation kept you from meetings, work, or from getting things needed for daily living? No 10/17/2025 Housing Stability Vital Sign Answer Fransico e Recorded In the last 12 months, was t here a time when you were not able to pay the mortgage or rent on time? No 10/17/2025 In the past 12 months, how m any times have you moved where you were living? 0 10/17/2025 At any time in the past 12 m [facility], were you homeless or living in a longterm (including now)? No 10/17/2025 Utilities Answer Date Recorded In the past 12 months has th e electric, gas, oil, or water company threatened to shut off services in your home? No 10/17/2025 Sex and Gender Information Value Date Recorded Sex Assigned at Not on file Legal Sex Male 3:33 PM EDT Gender Identity Not on file Sexual Orientation Not on file documented as of this encounter Last Filed Vital Signs Vital Sign Reading Time Taken Comments Blood Pressure 123/86 10/22/2025 2:00 PM EST Pulse 74 10/22/2025 2:00 PM EST Temperature 36.8 C (98.3 F) 10/22/2025 12:00 PM EST Respiratory Rate 15 10/22/2025 2:00 PM EST Oxygen Saturation 96% 10/22/2025 2:00 PM EST Inhaled Oxygen Concentration 96% 10/22/2025 2 :00 PM EST Weight 99.8 kg (220 lb) 10/17/2025 9:39 AM EST Height 167.6 cm (5' 6 ) 10/17/2025 9:39 AM EST Body Mass Index 35.51 10/17/2025 9:39 AM EST documented in this encounter Functional Status * Peripheral Vascular Question Answer Date of Assessment Author Peripheral Vascular (WDL) X 10/22/2025 8:00 AM EST Charbel Ji RN * Question Answer Date of Assessment Author Anti-Embolism Devices Bilateral;Sequenti al compression devices, below knee 10/22/2025 12:00 PM Charbel Cheatham RN Anti-Embolism Intervention Off 10/22/2025 12:00 PM Charbel Cheatham RN * AUDIT-C Score Answer Date of Assessment Author 0 10/17/2025 11:44 PM Kira Chandler RN * Question Answer Date of Assessment Author Q1: How often do you have a drink containing alcohol? Never 10/17/2025 11:44 PM Kira Chandler R N Q2: How many drinks containing alcohol do you have on a typical day when you are drinking? Patient does not drink 10/17/2025 11:44 PM Kira Chandler RN Q3: How often do you have six or more drinks on one occasion? Never 10/17/2025 11:44 PM Kira Chandler R N documented as of this encounter Discharge Summaries * Citlaly Zimmerman RN - 10/22/2025 12:26 PM EST [facility] Care Management Discharge Summary Patient name: David Serrano Patient : 1960 Age: 65 y.o. Gender: male Patient emergency contact: Extended Emergency Contact Information Primary Emergency Contact: Stacy Serrano [address]: [address] [place] [address] Mobile Relation: Spouse Attending provider: Vani Winkler MD Primary care physician: PROVIDER NOT IN SYSTEM The MD has indicated that the patient is ready for discharge. David Serrano was referred and accepted at [facility] ([phone]) for PT/OT and SN (lab draws) . Patient dischargedsafely to home with family at time of discharge. The patient will be transported by family via private vehicle at time of discharge. Transfer Mode/Level of Care: Family DC Summary and HOC have been faxed to facility. The plan has been reviewed: Patient/Family Informed of Discharge Plan: Yes Plan Reviewed With Patient, Family, or Significant Other: Yes Patient and or family are aware and in agreement with the discharge plan: Yes Plan reviewed with MD and other members of the health care team: Yes Care Plan Completed: Yes No further CM/SW needs. This plan has been reviewed with the multi-disciplinary team. Treatment Preferences Treatment Preferences: Distance Post-Discharge Goals Patient's Post-Discharge goals: Discharge safely to home Post Acute Care Provider Information: Community Services at Discharge Community Services at Home post discharge: [facility] Name/Phone # post discharge: [facility] ([phone]) Home Health Services Types at Discharge: PT/OT/ASSISTANT PROFESSOR OF PHILOSOPHY, Snf (nursing home for lab draws.) Citlaly Zimmerman RN/CM [phone] documented in this encounter Discharge Instructions * Discharge Instructions* LAISHA Hernandez - 10/18/2025 1:53 PM EST Activity: As tolerated. Get out of bed and walk frequently. You should not drive for 2 weeks from your surgery date, and should be off all narcotic pain medications prior to driving. You should not lift over 10# for 6 weeks from your surgery date. Return to work: TBD in clinic follow up appointments. Diet: Regular diet Drain/Dressing/Wound Care: [place] will be removed in clinic approximately 3-4 weeks from your surgery date. You may shower on day of discharge. Wash incision gently with soap and water and pat dry. Do not soak incisions in bath water or swim for at least two weeks. Drainage from incision is common in first few weeks, but call if you have any questions or concerns. Medications: Please call if you have ANY questions about your medications. Please take sure that your immunosuppression medications are taken as directed by the medical staff(ie, timing is very important). Please discuss any new medications with the transplant team prior to starting. Tylenol is OK to take for pain control, but dose should be kept under 2 gm/day. Please discuss withyour local coordinator if you have any question about appropriate dose to take. Other Instructions: Call post-liver transplant clinic with questions [phone] [facility] at [phone] and ask for the liver home school coordinator ammunition components inspector if you experience any of the following: - Worsening pain, nausea, or vomiting not reieved by medications - Temperature greater than 100.4 F or fever/chills - Redness around incision, drainage from incision, or wound edge separation - Chest pain, shortness of breath, persistent dizziness, swelling in one or both legs - Blood sugars consistently above 150 or one reading above 300 - Weight gain of greater than 5# in 24 hours Follow up appointment: Date and time as instructed by your home school coordinator in liver transplant clinic in [facility], 3rd floor or Video Visit. PLEASE GET LABS DRAWN THIS WEDNESDAY! Home Health Care will begin coming to your house every Wednesday/ starting next week, 10/29. documented in this encounter Medications at Time of Discharge furosemide (LASIX) 40 MG tablet Take 1 tablet (40 mg total) by mouth daily. 7 tablet 10/22/2025 3:31 PM EST 10/22/2025 insulin lispro 100 unit/mL InPn Administer insulin with meals per sliding scale: Blood glucose 150-199 mg/dL =1units, Blood glucose 200-249 mg/dL =2 units, Blood glucose 250-299 mg/dL =3 units, Blood glucose 300-349 mg/dL =4 units, Blood glucose greater than 349 mg/dL = 5 units 15 mL 2 10/22/2025 3:31 PM EST 10/22/2025 NIFEdipine (PROCARDIA-XL) 30 MG (OSM) 24 hr tablet Take 1 tablet (30 mg total) by mouth daily. 30 tablet 10/22/2025 3:31 PM EST 10/22/2025 oxyCODONE (ROXICODONE) 5 MG immediate release tabletIndication s:S/P liver transplant (CMS-HCC) Take 1 tablet (5 mg total) by mouth every 8 hours as needed for up to 3 days. 9 tablet 10/22/2025 3:31 PM EST 10/22/2025 predniSONE (DELTASONE) 5 MG tablet Take 6 tablets by mouth in the morning on 10/23, then take 5 tablets by mouth on 10/24, and then starting on 10/25, take 4 tablets daily 123 tablet 2 10/22/2025 3:31 PM EST 10/22/2025 tacrolimus (PROGRAF) 1 MG capsule Take 5 capsules (5 mg total) by mouth 2 times a day. 600 capsule 5 10/22/2025 3:31 PM EST 10/22/2025 acetaminophen (TYLENOL) 325 MG tablet Take 3 tablets (975 mg total) by mouth every 8 hours. 200 tablet 10/22/2025 3:31 PM EST 10/18/2025 acyclovir (ZOVIRAX) 400 MG tablet Take 2 tablets (800 mg total) by mouth 2 times a day. 120 tablet 10/22/2025 3:31 PM EST 10/18/2025 alcohol swabs PadM Use as instructed. 200 each 2 10/22/2025 3:31 PM EST 10/18/2025 blood sugar diagnostic (GLUCOSE BLOOD) Strp Use to test blood sugar four times a day. 100 strip 11 10/22/2025 3:31 PM EST 10/18/2025 blood-glucose meter Misc Use to test blood sugar four times a day. 1 each 10/22/2025 3:31 PM EST 10/18/2025 calcium-vitamin D 500 mg-5 mcg (200 unit) per tablet Take 1 tablet by mouth 2 times a day with meals. 60 tablet 2 10/22/2025 3:31 PM EST 10/18/2025 lancets Misc Use to test blood sugar four times a day. 100 each 11 10/22/2025 3:31 PM EST 10/18/2025 methocarbamoL (ROBAXIN) 500 MG tablet Take 1 tablet (500 mg total) by mouth 3 times a day. 90 tablet 10/22/2025 3:31 PM EST 10/18/2025 mycophenolate (CELLCEPT) 250 mg capsule Take 2 capsules (500 mg total) by mouth 2 times a day. 120 capsule 5 10/22/2025 3:31 PM EST 10/18/2025 pantoprazole (PROTONIX) 40 MG tablet Take 1 tablet (40 mg total) by mouth every morning before breakfast. 30 tablet 2 10/22/2025 3:31 PM EST 10/18/2025 pen needle, diabetic 32 gauge x 5/32 Ndle For use with insulin pen. Use as instructed. 100 each 2 10/22/2025 3:31 PM EST 10/18/2025 polyethylene glycol (GLYCOLAX) 17 gram/dose powder Mix 1 capful (17 g) in 8 ounces of fluid and drink by mouth daily as needed for constipation. 238 g 10/22/2025 3:31 PM EST 10/18/2025 potassium chloride (KLOR-CON) 10 MEQ CR tablet Take 1 tablet (10 mEq total) by mouth daily. 7 tablet 10/22/2025 3:31 PM EST 10/22/2025 senna-docusate (SENNOSIDES-DOCU SATE SODIUM) 8.6-50 mg per tablet Take 1 tablet by mouth at bedtime as needed for constipation. 30 tablet 10/22/2025 3:31 PM EST 10/18/2025 sod phos di, mono-K phos mono (PHOSPHORUS) 250 mg Tab tablet Take 250 mg by mouth 2 times a day. 14 tablet 10/22/2025 3:31 PM EST 10/22/2025 sulfamethoxazole -trimethoprim (BACTRIM) 400-80 mg per tablet Take 1 tablet by mouth daily. 30 tablet 2 10/22/2025 3:31 PM EST 10/18/2025 documented as of this encounter Progress Notes * Cori Womack, PharmD - 10/22/2025 4:37 PM EST Transplant Pharmacy Note Discharge Medication Education, Evaluation and Transition Name: David Serrano Discharge prescriptions were ordered from Discharge Pharmacy as per med list below. Confirmed that there are no barriers with these prescriptions Discharge education provided to patient and caregiver(s) present: spouse, Stacy The patient was given a completed medication instruction card, according to discharge instructions (see medication list below) Administration times for medications were noted on card. Immunosuppression schedule as per Education Note by home school coordinator earlier this admission. Reviewed discharge medications and importance of adherence with patient A weekly pillbox was provided and patient was instructed on how to use med card to fill pillbox Pillbox at discharge (select one): Patient will fill pillbox at home Information about medications reviewed, including: Brand and generic names Strength(s) supplied; instructed patient to confirm strength and dose while filling pillbox Dose/frequency Indication Expected duration Other drug-specific clinical pearls Importance of adherence in preventing rejection Personal assessment of patient's medication knowledge: good Expected caregiver involvement?: very good Need for additional education in clinic? (If significant deficits, communicate with home school coordinator): Standard continual education Future medications to be obtained from, if known: local pharmacy, pt will discuss in clinic Financial concerns (if any): NA Current Discharge Medication List START taking these medications Details insulin lispro 100 unit/mL InPn Administer insulin with meals per sliding scale: Blood glucose 150-199 mg/dL =1units, Blood glucose 200-249 mg/dL =2 units, Blood glucose 250-299 mg/dL =3 units, Bloodglucose 300-349 mg/dL =4 units, Blood glucose greater than 349 mg/dL = 5 units Qty: 15 mL, Refills: 2 NIFEdipine (PROCARDIA-XL) 30 MG (OSM) 24 hr tablet Take 1 tablet (30 mg total) by mouth daily. Qty: 30 tablet, Refills: 0 oxyCODONE (ROXICODONE) 5 MG immediate release tablet Take 1 tablet (5 mg total) by mouth every 8 hours as needed for up to 3 days. Qty: 9 tablet, Refills: 0 Associated Diagnoses: S/P liver transplant ([facility]) predniSONE (DELTASONE) 5 MG tablet Take 6 tablets by mouth in the morning on 10/23, then take 5 tablets by mouth on 10/24, and then starting on 10/25, take 4 tablets daily Qty: 123 tablet, Refills: 2 tacrolimus (PROGRAF) 1 MG capsule Take 5 capsules (5 mg total) by mouth 2 times a day. Qty: 600 capsule, Refills: 5 acetaminophen (TYLENOL) 325 MG tablet Take 3 tablets (975 mg total) by mouth every 8 hours. Qty: 200 tablet, Refills: 0 acyclovir (ZOVIRAX) 400 MG tablet Take 2 tablets (800 mg total) by mouth 2 times a day. Qty: 120 tablet, Refills: 0 alcohol swabs PadM Use as instructed. Qty: 200 each, Refills: 2 blood sugar diagnostic (GLUCOSE BLOOD) Strp Use to test blood sugar four times a day. Qty: 100 strip, Refills: 11 Comments: Dx: 9.65. Brand per pharmacy / insurance preference. blood-glucose meter Misc Use to test blood sugar four times a day. Qty: 1 each, Refills: 0 calcium-vitamin D 500 mg-5 mcg (200 unit) per tablet Take 1 tablet by mouth 2 times a day with meals. Qty: 60 tablet, Refills: 2 lancets Misc Use to test blood sugar four times a day. Qty: 100 each, Refills: 11 Comments: Dx: 9.65. Brand per pharmacy / insurance preference. methocarbamoL (ROBAXIN) 500 MG tablet Take 1 tablet (500 mg total) by mouth 3 times a day. Qty: 90 tablet, Refills: 0 mycophenolate (CELLCEPT) 250 mg capsule Take 2 capsules (500 mg total) by mouth 2 times a day. Qty: 120 capsule, Refills: 5 pantoprazole (PROTONIX) 40 MG tablet Take 1 tablet (40 mg total) by mouth every morning before breakfast. Qty: 30 tablet, Refills: 2 pen needle, diabetic 32 gauge x 5/32 Ndle For use with insulin pen. Use as instructed. Qty: 100 each, Refills: 2 polyethylene glycol (GLYCOLAX) 17 gram/dose powder Mix 1 capful (17 g) in 8 ounces of fluid and drink by mouth daily as needed for constipation. Qty: 238 g, Refills: 0 potassium chloride (KLOR-CON) 10 MEQ CR tablet Take 1 tablet (10 mEq total) by mouth daily. Qty: 7 tablet, Refills: 0 senna-docusate (SENNOSIDES-DOCUSATE SODIUM) 8.6-50 mg per tablet Take 1 tablet by mouth at bedtime as needed for constipation. Qty: 30 tablet, Refills: 0 sod phos di, mono-K phos mono (PHOSPHORUS) 250 mg Tab tablet Take 250 mg by mouth 2 times a day. Qty: 14 tablet, Refills: 0 sulfamethoxazole-trimethoprim (BACTRIM) 400-80 mg per tablet Take 1 tablet by mouth daily. Qty: 30 tablet, Refills: 2 CONTINUE these medications which have CHANGED Details furosemide (LASIX) 40 MG tablet Take 1 tablet (40 mg total) by mouth daily. Qty: 7 tablet, Refills: 0 STOP taking these medications calcitRIOL (ROCALTROL) 0.25 MCG capsule Comments: Reason for Stopping: ergocalciferol (ERGOCALCIFEROL) 1,250 mcg (50,000 unit) capsule Comments: Reason for Stopping: omeprazole (PRILOSEC) 20 MG capsule Comments: Reason for Stopping: spironolactone (ALDACTONE) 50 MG tablet Comments: Reason for Stopping: XIFAXAN 550 mg Tab tablet Comments: Reason for Stopping: Cori Womack PharmD Solid Organ Transplant Clinical Skid Strapper Contact via CR2 * Cori Womack PharmD - 10/22/2025 4:06 PM EST Transplant Pharmacy Note Transplant pharmacy is following David Serrano during hospital admission and will perform the following activities related to transplant pharmacotherapy: 1. Ensure appropriate management and titration of immunosuppressive, prophylactic, and other supportive care medications; 2. Monitor for any adverse drug effects; 3. Review the patient's medication profile for any potential drug interaction. Cori Womack PharmD Solid Organ Transplant Clinical Skid Strapper Contact via CR2 * Jen Mckeon PT - 10/22/2025 12:10 PM EST Physical Therapy Treatment Name: David Serrano : 1960 Attending Physician: Vani Winkler MD Admission Diagnosis: TRANSPLANT LIVER Date: 10/22/2025 Room: [place] [address] [address] Reviewed Pertinent hospital course: Yes Hospital Course PT/OT: Pt is 65 y.o M direct admit for liver transplant. 10/17: OR s/p OLT and L renal vein ligation. Intubated post-op, txf to SICU. 10/18: extubated. US: patent vasculature, possible steatosis. 10/19: NGT removed. reviewed 10/22. 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 Pt with good toleranceto session and demos steady progress towards PT POC as he met x2 STGs. Pt required Radha for bed mobility, CGA-SBA for STS, and CGA-SBA to ambulate 250' w/RW. Pt continues to be limited by pain, weakness, global deconditioning. Pt will continue to benefit from acute skilled PT services to address listed deficits, promote functional mobility, and maximize independence. Assessment: Impaired Strength;Impaired Activity Tolerance;Impaired ROM;Deconditioning;Impaired Bed Mobility;Impaired Transfers;Impaired Gait;Impaired Balance;Impaired Stair Negotiation Prognosis: Good Recommendation Recommendation: Home PT Equipment Recommended: Rolling walker Justification for DME ordered: Walker Walker: Patient has decreased weight bearing or impaired balance putting them at risk for falling without use of a walker. They are unable to utilize crutches or a cane to provide adequate support AM-PAC 6 Clicks Basic Mobility Inpatient Short Form: PT 6 Clicks Score: 18 Mobility Recommendations for Staff During Hospitalization Patient ability: Patient ambulates in hallway Assist needed: with 1 person assist Equipment/ Precautions needed: Requires assistive device, use gait belt Requires Assistive Device: Rolling walker Cognition: Arousal/Alertness: Alert Orientation Level: Oriented X4 Behavior: Appropriate;Cooperative;Motivated Following Commands: Follows all commands and directions without difficulty Safety Judgment: Good awareness of safety precautions Insight: Demonstrated intact insight into limitation and abilities to complete ADL's safely Cody Agitation Sedation Scale: Alert and calm Pain Pain Score: 0 - No Pain Mobility Bed Mobility Supine to Sit: Minimal assistance;increased time to complete task;head of bed elevated;towards the right Transfers Sit to Stand: Contact Guard assistance;up to assistive device;cues for hand placement Sit to Stand Assistive Device: Rolling walker Stand to Sit: with assistive device;cues for hand placement;Stand-by assistance Stand to Sit Assistive Device: Rolling walker Gait Distance: 250' Level of Assistance: Contact Guard assistance;Stand By assistance (CGA progressing to SBA) Assistive Device: Rolling walker Gait Characteristics: Steady;decreased lili;Increased trunk flexion;No LOB;R decreased step length;L decreased step length Balance Sitting - Static: Supervision Sitting - Dynamic: Supervision Standing - Static: Stand-by assistance;With Assistive Device Standing-Static Assistive Device: Rolling walker Standing - Dynamic: Stand-by assistance;Contact Guard Assistance;With Assistive Device Standing-Dynamic Assistive Device: Rolling walker Gait belt used: Yes Vitals: Vitals Therapy Vitals : VSS throughout Position after Treatment and Safety Handoff Position after treatment and safety handoff Position after therapy session: Chair Details: RN notified;Call light/ needs within reach Alarms: Chair Alarms Status: Activated and Interfaced with call system Goals Goals Met: Sit to stand, Gait Collaborated with: Patient Patient Stated Goal: to go home Goals to be met by: 10/26/25 Patient will transition from supine to sit: Stand-By assistance Patient will transition from sit to supine: Stand-By assistance Patient will transfer from sit to stand: Supervision Patient will transfer bed/chair: Stand-By assistance Patient will ambulate: Supervision, distance (in feet) Distance (in feet): 300' Patient will go up / down stairs: Will tolerate assessment Long-term goal to be met by: 11/02/25 Key Ringer Goal : =STG Patient/Family Education Educated patient on the role of physical therapy, goals, plan of care, importance of increased activity, and discharge recommendations and fall prevention strategies, including need for supervision/ assistance with OOB activity and use of call light; patient verbalized understanding. Handout(s) issued: none. Plan Plan Treatment/Interventions: LE strengthening/ROM, Therapeutic Activity, Continued evaluation, Therapeutic Exercise, Endurance training, Stair Training, Neuromuscular Reeducation, Equipment eval/education, Gait training PT Frequency during hospitalization: minimum 3x/week The plan of care and recommendations assesses the patient's and/or caregiver's readiness, willingness, and ability to provide or support functional mobility and ADL tasks as needed upon discharge. Time Start Time: 1124 Stop Time: 1202 Time Calculation (min): 38 min Charges $Therapeutic Activity: 3 units Problem List Problem List[1] Past Medical History Past Medical History: Diagnosis Date Epididymitis Hemochromatosis Hypertension Kidney stone Metabolic dysfunction-associated steatotic liver disease and increased alcohol intake ([facility]) Portal vein thrombosis UTI (urinary tract infection) Past Surgical History Past Surgical History: Procedure Laterality Date HERNIA REPAIR LIVER TRANSPLANTATION N/A 10/17/2025 Procedure: TRANSPLANT LIVER; Surgeon: Vani Winkler MD; Location: [facility]; Service: Transplant; Laterality: N/A; [1] Patient Active Problem List Diagnosis Alcoholic cirrhosis (CMS-HCC) Ascites Hepatic encephalopathy (CMS-HCC) Esophageal varices (CMS-HCC) Pre-transplant evaluation for chronic liver disease Encounter for pre-transplant evaluation for liver transplant * Judy SebastianD - 10/19/2025 3:13 PM EST Caprini Risk Score for Liver Transplant Recipients Caprini risk assessment model for venous thromboembolism adapted for liver transplant recipients Total Points Select age (select one): [] 0 - 40 years old (0 points) [] 41 - 60 years old (1 point) [x] 61 - 74 years old (2 points) 2 [] 75 years old or older (3 points) Select if patient is admitted for a liver transplant surgery (3 points) [x] 2. Admitted for a liver transplant (includes 2 points for planned procedure greater than 45 minutes, and 1 point for major surgery greater than 2 hours) 3 Each of the following criteria that apply now or within the past month, receives 1 point (select all that apply): [] 3. Within the past month, the patient had major surgery under anesthesia that lasted for MORE than 45 minutes (prior to transplant surgery) [] 4. Within the past month, has the patient had varicose veins (NOT spider veins) [x] 5. Within the past month, has the patient had swollen legs including pitting edema of any level, loss of definition of the bony prominences, obscured foot veins, or indentation of the leg when a stocking is removed 1 [] 6. Within the past month, has the patient had an episode of myocardial infarction [] 7. Within the past month, has the patient had serious infection requiring hospitalization []8. History of inflammatory bowel disease (including Crohn's or ulcerative colitis) [x] 9. Patient with BMI above 25 kg/m2 1 [] 10. Patient has history of congestive heart failure This risk factor include patients who have had an episode within the last month. Additionally, patients who are currently being treated with medication for CHF are included, even if they had not had an acute episode within the past month. An ejection fraction alone should not be used when determining whether a patient meets this criteria 0 11. Enter number of lung diseases including but not limited to: emphysema, COPD, any interstitiallung disease, patients with abnormal pulmonary function tests, sarcoidosis, pulmonary fibrosis, pulmonary hypertension, and bronchiectasis. Patients who present with more than 1 diagnosis meeting the criteria for lung disease receive 1 point for each diagnosis. Each of these other risk factors that apply now or within the past month receives 1 point (select all that apply): [] 12. BMI above 40 kg/m2 [] 13. Smoking within the last month (smoking is defined as the inhalation of anything that fields [eg, tobacco, marijuana], or vaping) [] 14. Diabetes requiring insulin (does not include oral or parenteral medications used for the treatment of diabetes) [] 15. Chemotherapy (includes chemotherapy treatments used for any medical condition (eg, methotrexate for rheumatoid arthritis, hydroxyurea for essential thrombocytosis) [] 16. History of HIV [x] 17. Blood transfusion(s) (1 point for 1 or more transfusion) 1 [] 18. Restricted mobility defined as unable to ambulate continuously for 30 feet for less than 72 hours For WOMEN only, add 1 point for each statement that applies (select all that apply): [] 19. Patient currently uses control or hormone replacement therapy including estrogen contraceptives of any type, or estrogen-like drugs (tamoxifen, anastrozole, letrozole). Does not include testosterone replacement therapy or progesterone. [] 20. or had a baby within the last month [] 21. History of unexplained stillborn , recurrent spontaneous (3 or more), premature with toxemia or growth restricted infant Each of the following criteria receives 2 points (select all that apply): 0 22. Enter number of current or past malignancies (excluding skin cancer). Every incidence of cancer is considered separately and points are additive. Patients who present with more than 1 diagnosismeeting the criteria for current or past malignancies receive 2 points for each diagnosis. [] 23. Within the past month, has the patient had a nonremovable cast or mold that prevents leg movement. Also includes patients using crutches who are non- weightbearing on one leg. Does not include the use of an assistive device for stability. [x] 24. Within the past month, has the patient had a central line, PICC, or Port? 2 [] 25. Impaired mobility defined as unable to ambulate continuously for 30 feet for more than 72 hours Each of the following criteria receives 3 points (select all that apply): 0 26. Enter number of episodes of blood clots (includes: deep vein thrombosis (DVT), pulmonary embolism (PE); or superficial vein thrombosis (SVT). Each episode is a separate event for scoring. [] 27. Family history of blood clots (includes first-, second-, and third-degree relatives) 0 28. Enter number of personal or family history of positive blood test indicating an increased risk of blood clotting (eg, genetic or acquired thrombophilia) Each of the following criteria that apply now or within the past month receives 5 points (select all that apply): [] 29. Within the past month, the patient had a broken hip, pelvis, or leg (fractures requiring surgical repair receive 5 points for the fracture and additional points for the surgery depending on time [eg, >45 minutes] and type [eg, hip replacement], as well as points for any resulting restricted mobility (eg, cast placed) 0 30. Enter the number of elective hip or knee joint replacements (total or partial; points assessed for each surgical procedure. [] 31. Within the past month, the patient had a serious trauma (eg, multiple broken bones due to a fall or car accident) [] 32. Within the past month, the patient had a spinal cord injury resulting in paralysis [] 33. Within the past month, the patient had a stroke Final Score 10 * We use the Caprini Risk Assessment model for general, abdominal-pelvic, bariatric, vascular, and plastic and reconstructive surgery Alon M, Wilfrido N, Margie ES, et al. Completion of the Updated Caprini Risk Assessment Model (2013 Version). Clin Appl Thromb Hemost 2019; 25:1. Estimated baseline risk (EBR) of VTE and Chemoprophylaxis Duration by risk category Points Risk Category EBR Chemoprophylaxis Duration 0 - 4 Low/Medium < 0.7% During hospitalization 5 - 8 High 1.5 - 4% 10 days total* >= 9 Very High 10.7% 30 days total* *Including duration during hospitalization Date of liver transplant: 10/17/25 Most recent operative procedure: 10/17/25 Crcl: Estimated Creatinine Clearance: 71.2 mL/min (based on SCr of 1.16 mg/dL). Based on the Caprini Risk Score of 10 and [facility] transplant protocol, I recommend discharging on heparin 5,000 units subcutaneously q8h (facility) or Eliquis 2.5 mg PO BID (home) for 30 days total. Endof chemoprophylaxis: 11/17/25. Cori Womack PharmD Solid Organ Transplant Clinical Skid Strapper Contact via [employer] Secure Chat * Lary Ding OT - 10/19/2025 11:03 AM EST Occupational Therapy Initial Assessment Name: David Serrano : 1960 Attending Physician: Vani Winkler MD Admission Diagnosis: TRANSPLANT LIVER Date: 10/19/2025 Room: [place] [address]/[place] [address] Reviewed Pertinent hospital course: Yes Hospital Course PT/OT: Pt is 65 y.o M direct admit for liver transplant. 10/17: OR s/p OLT and L renal vein ligation. Intubated post-op, txf to SICU. 10/18: extubated. 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, MA A1AT, HTN, portal vein thrombosis, UTI, ascites, esophageal varices, moderate diastolic dysfunction, GERD Precautions: none Activity Level: Activity as tolerated Assist: Co-evaluation performed Recommendation Recommendation: Home OT Equipment Recommendations: Tub Transfer Bench Tub Transfer Bench Justification: Patient is at risk to fall in shower environment, Patient has decreased activity tolerance requiring use of seat during bathing tasks Assessment Assessment: Decreased IADLs, Decreased Functional Mobility, Decreased activity tolerance, DecreasedBalance, Decreased ADL status, Decreased self-care transfers Prognosis for OT goals: Good Pt seated in chair upon therapist's arrival. David was agreeable to occupational therapy assessment and tolerated well with high motivation. Pt participated in chair to bed transfer, but unable to progress further d/t hypertension with SBP to 190s with mobility. Pt with SBP recovering to 140s with return to bed and rest. Pt primarily limited by decreased activity tolerance, impaired balance, and impaired ADL participation. Patient will benefit from continued acute inpatient occupational therapy in order to promote return to prior level of function and maximize functional independence and safety. Continued occupational therapy in the home health setting at discharge is recommended. Outcome Measures AM-PAC 6 Clicks Daily Activity Inpatient Short Form: OT 6 Clicks Score: 17 Functional Status Score ICU (FSS-ICU): Functional Status Score - ICU: 16 Home Living/Prior Function Patient able to provide accurate information at this time: Yes Lives With: Spouse Assistance available: 24 hour assistance Type of Home: House Home Entry: More than 1 step to enter Stairs to enter: 2 Home Layout: One level Bathroom Shower/Tub: Tub/shower unit Bathroom Toilet: Standard Bathroom Equipment: Grab bars in shower Home Equipment: Single-point cane Prior Function Functional Mobility: Independent ( no assistive device) Receives Help From: None needed prior to admission ADL Assistance: Independent IADL Assistance: Independent Leisure: Hobbies-yes (Comment) Leisure Activities: fishing, play with grandkids Pain Pain Score: 0 - No Pain Supplemental Oxygen Supplemental Oxygen Supplemental Oxygen: None (Room air) Vitals Vitals Therapy Vitals : vitals listed below Vitals During Therapy BP (mmHg): 1902/80s Comments on Vitals: pt with increasing hypertension during mobility, returned to 140s with rest at end of session. All other VSS Cognition Overall Cognitive Status: Within Functional Limits Cognitive Assessment: Orientation Level;Arousal/ Alertness;Behavior;Following Commands;Safety Judgment;Insight Arousal/Alertness: Alert Orientation Level: Oriented X4 Behavior: Appropriate;Cooperative;Motivated Following Commands: Follows all commands and directions without difficulty Safety Judgment: Good awareness of safety precautions Insight: Demonstrated intact insight into limitation and abilities to complete ADL's safely [place] Agitation Sedation Scale: Alert and calm Vision/Hearing/Perception Hearing: Wears bilateral hearing aids Baseline Vision: Wears glasses all the time Right Upper Extremity Right UE ROM: Grossly WFL as observed during functional activities Right UE Strength: Grossly WFL (at least 3+/5) as observed during functional activities Right UE Muscle Tone: Normal Right Hand Function: Grossly WFL as observed during functional activity Left Upper Extremity Left UE ROM: Grossly WFL as observed during functional activities Left UE Strength: Grossly WFL (at least 3+/5) as observed during functional activities Left UE Muscle Tone: Normal Left UE Hand Function: Grossly WFL as observed during functional activites Neuromuscular Overall Sensation: Patient denies any numbness/ tingling in BUE's/ BLEs Functional Mobility Bed Mobility Sit to Supine: Minimal assistance;towards the left;head of bed flat;increased time to complete task Transfers Sit to Stand: Minimal assistance;increased time to complete task;up to assistive device;cues for hand placement Sit to Stand Assistive Device: Rolling walker Stand to Sit: Minimal assistance;increased time to complete task;with assistive device;cues for hand placement Stand to Sit Assistive Device: Rolling walker Bed to Chair: Contact guard assistance;stand step;increased time to complete task;towards the left;with assistive device Bed to Chair Assistive Device: Rolling walker Unable to progress further due to: hypertension with SBP to 190s Balance Sitting - Static: Stand by Assistance Sitting-Dynamic: Contact Guard Assistance Standing-Static: Contact Guard Assistance;With Assistive Device Standing-Static Assistive Device: Rolling walker Standing-Dynamic: Contact Guard Assistance;With Assistive Device Standing-Dynamic Assistive Device: Rolling walker Gait belt used: Yes Position after Treatment/Safety Handoff Position after therapy session: Bed Details: RN notified;visitor present;Call light/ needs within reach Alarms: Bed Alarms Status: Activated and Interfaced with call system Plan Plan Treatment Interventions: ADL retraining, Activity Tolerance training, Patient/Family training, Therapeutic Activity, Excercise, Compensatory technique education, Functional transfer training, Continued evaluation, Equipment eval/education OT Frequency during hospitalization: minimum 3x/week The plan of care and recommendations assesses the patient's and/or caregiver's readiness, willingness, and ability to provide or support functional mobility and ADL tasks as needed upon discharge. Goals Goals to be met in: 1 week Patient stated goal: to go home Patient will complete supine to sit in prep for ADLs: Will tolerate assessment Patient will complete functional chair transfer: Stand-by assistance Patient will complete toilet transfer: Will tolerate assessment Patient will complete toileting: Will tolerate assessment Patient will complete grooming task: Stand-by assistance (standing sinkside) Patient will complete lower body dressing: Moderate assistance Key Ringer Goal : Pt will tolerate a bathing assessment wool shearer goal to be met in: 2 weeks Collaborated with: Patient Patient/Family Education Educated patient on the role of occupational therapy, OT goals, OT plan of care, ADL training, functional mobility training, and the importance of safety and fall prevention strategies including needfor supervision/ assistance with OOB activity and use of call light. patient verbalized understanding. OT Time Start Time: 904 Stop Time: 933 Time Calculation (min): 29 min OT Charges $OT Evaluation Mod Complex 45 Min: 1 Procedure Problem List Problem List[1] Past Medical History Past Medical History: Diagnosis Date Epididymitis Hemochromatosis Hypertension Kidney stone Metabolic dysfunction-associated steatotic liver disease and increased alcohol intake (MetALD) Portal vein thrombosis UTI (urinary tract infection) Past Surgical History Past Surgical History: Procedure Laterality Date HERNIA REPAIR LIVER TRANSPLANTATION N/A 10/17/2025 Procedure: TRANSPLANT LIVER; Surgeon: Vani Winkler MD; Location: [facility]; Service: Transplant; Laterality: N/A; [1] Patient Active Problem List Diagnosis Alcoholic cirrhosis (CMS-HCC) Ascites Hepatic encephalopathy (CMS-HCC) Esophageal varices (CMS-HCC) Pre-transplant evaluation for chronic liver disease Encounter for pre-transplant evaluation for liver transplant * Jen Mckeon, PT - 10/19/2025 10:24 AM EST Physical Therapy Initial Assessment Name: David Serrano : 1960 Attending Physician: Vani Winkler MD Admission Diagnosis: TRANSPLANT LIVER Date: 10/19/2025 Room: [place] [address]/[place] [address] Reviewed Pertinent hospital course: Yes Hospital Course PT/OT: Pt is 65 y.o M direct admit for liver transplant. 10/17: OR s/p OLT and L renal vein ligation. Intubated post-op, txf to SICU. 10/18: extubated. 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, MA A1AT, HTN, portal vein thrombosis, UTI, ascites, esophageal varices, moderate diastolic dysfunction, GERD Precautions: none Activity Level: Activity as tolerated Assist: Co-evaluation performed Assessment Assessment: Impaired Strength, Impaired Activity Tolerance, Impaired ROM, Deconditioning, Impaired Bed Mobility, Impaired Transfers, Impaired Gait, Impaired Balance, Impaired Stair Negotiation Co-treatment performed: to integrate multiple skills simultaneously in order to challenge patient and advance progress, secondary to anticipated level of skilled assistance required to safely treat and mobilize patient Prognosis: Good Pt presenting below baseline level of function, requiring additional assistance to complete functional mobility. Pt required Radha for bed mobility, Radha for STS w/RW, and CGA to ambulate 5' w/RW. Unable to progress mobility this date 2/2 hypertension. Pt limited by weakness, impaired balance, global deconditioning. Pt will benefit from continued acute skilled PT services to address above listed deficits, promote functional mobility, and maximize independence. Recommendation Recommendation: Home PT (pending further gait assessment) Equipment Recommended: Rolling walker Justification for DME ordered: Walker Walker: Patient has decreased weight bearing or impaired balance putting them at risk for falling without use of a walker. They are unable to utilize crutches or a cane to provide adequate support AM-PAC 6 Clicks Basic Mobility Inpatient Short Form: PT 6 Clicks Score: 17 Mobility Recommendations for Staff Patient ability: Patient transfers to chair/ bedside commode Assist needed: with 1 person assist Equipment/ Precautions needed: Requires assistive device, use gait belt Requires Assistive Device: Rolling walker Home Living/Prior Function Patient able to provide accurate information at this time: Yes Lives With: Spouse Assistance available: 24 hour assistance Type of Home: House Home Entry: More than 1 step to enter Stairs to enter: 2 Home Layout: One level Bathroom Shower/Tub: Tub/shower unit Bathroom Toilet: Standard Bathroom Equipment: Grab bars in shower Home Equipment: Single-point cane Prior Function Functional Mobility: Independent ( no assistive device) Receives Help From: None needed prior to admission ADL Assistance: Independent IADL Assistance: Independent Leisure Activities: fishing, play with grandkids Pain Vision Hearing/Vision/Perception Hearing: Wears bilateral hearing aids Baseline Vision: Wears glasses all the time Cognition Overall Cognitive Status: [facility] Cognitive Assessment: Orientation Level;Arousal/ Alertness;Behavior;Following Commands;Safety Judgment;Insight Arousal/Alertness: Alert Orientation Level: Oriented X4 Behavior: Appropriate;Cooperative;Motivated Following Commands: Follows all commands and directions without difficulty Safety Judgment: Good awareness of safety precautions Insight: Demonstrated intact insight into limitation and abilities to complete ADL's safely Neuromuscular Overall Sensation: Patient denies any numbness/ tingling in BUE's/ BLEs Upper Extremity UE Assessment: Defer to OT evaluation for formal assessment Lower Extremity Lower Extremity LE Assessment: Strength WFL (at least 3+/5) as observed during functional activity Functional Mobility Bed Mobility Sit to Supine: Minimal assistance;increased time to complete task;head of bed flat;towards the left Transfers Sit to Stand: Minimal assistance;increased time to complete task;up to assistive device;cues for hand placement (x1 from chair w/o RW, x1 from chair w/RW) Sit to Stand Assistive Device: Rolling walker Stand to Sit: Minimal assistance;increased time to complete task;with assistive device;cues for hand placement Stand to Sit Assistive Device: Rolling walker Gait Distance (in feet): 5' Level of assistance: Contact Guard assistance;increased time to complete task Assistive Device: Rolling walker Gait Characteristics: Steady;decreased lili;Increased trunk flexion;No LOB;R decreased step length;L decreased step length Balance Sitting - Static: Stand by Assistance Sitting-Dynamic: Stand by assistance Standing-Static: Contact Guard Assistance;With Assistive Device Standing-Static Assistive Device: Rolling walker Standing-Dynamic: Contact Guard Assistance;Minimal Assistance;With Assistive Device Standing-Dynamic Assistive Device: Rolling walker Gait belt used: Yes Vitals Vitals Therapy Vitals : vitals listed below Vitals During Therapy BP (mmHg): 1902/80s Comments on Vitals: pt with increasing hypertension during mobility, returned to 140s with rest at end of session. All other VSS Position after Therapy/Safety Handoff Position after treatment and safety handoff Position after therapy session: Bed Details: RN notified;Call light/ needs within reach Alarms: Bed Alarms Status: Activated and Interfaced with call system Goals Collaborated with: Patient Patient Stated Goal: to go home Goals to be met by: 10/26/25 Patient will transition from supine to sit: Stand-By assistance Patient will transition from sit to supine: Stand-By assistance Patient will transfer from sit to stand: Stand-By assistance Patient will transfer bed/chair: Stand-By assistance Patient will ambulate: Will tolerate assessment Patient will go up / down stairs: Will tolerate assessment Long-term goal to be met by: 11/02/25 Senior Living Goal : =STG Patient/Family Education Educated patient and patient's family on the role of physical therapy, goals, plan of care, importance of increased activity, and discharge recommendations and fall prevention strategies, including need for supervision/ assistance with OOB activity and use of call light; patient and patient's family verbalized understanding. Handout(s) issued: none. Plan Plan Treatment/Interventions: LE strengthening/ROM, Therapeutic Activity, Continued evaluation, Therapeutic Exercise, Endurance training, Stair Training, Neuromuscular Reeducation, Equipment eval/education, Gait training PT Frequency during hospitalization: minimum 3x/week The plan of care and recommendations assesses the patient's and/or caregiver's readiness, willingness, and ability to provide or support functional mobility and ADL tasks as needed upon discharge. Time Start Time: 904 Stop Time: 933 Time Calculation (min): 29 min Charges $PT Evaluation Mod Complex 30 Min: 1 Procedure Problem List Problem List[1] Past Medical History Past Medical History: Diagnosis Date Epididymitis Hemochromatosis Hypertension Kidney stone Metabolic dysfunction-associated steatotic liver disease and increased alcohol intake (MetALD) Portal vein thrombosis UTI (urinary tract infection) Past Surgical History Past Surgical History: Procedure Laterality Date HERNIA REPAIR LIVER TRANSPLANTATION N/A 10/17/2025 Procedure: TRANSPLANT LIVER; Surgeon: Vani Winkler MD; Location: [facility]; Service: Transplant; Laterality: N/A; [1] Patient Active Problem List Diagnosis Alcoholic cirrhosis (CMS-HCC) Ascites Hepatic encephalopathy (CMS-HCC) Esophageal varices (CMS-HCC) Pre-transplant evaluation for chronic liver disease Encounter for pre-transplant evaluation for liver transplant * Leticia Lomeli MD - 10/18/2025 12:58 PM EST Transplant Surgery Progress Note Name: David Serrano CSN: [id number] Date: 10/18/2025 12:58 PM OR Date: 10/17/2025 Subjective 1 Day Post-Op S/p OLT EBL 11L Extubated this morning, sating >92 on 2-5L HFNC Currently off pressors since 0900 this morning UOP robust ?3L Drains ~600mL out Objective Vitals: Temp: [97.7 ??F (36.5 ??C)-98.6 ??F (37 ??C)] 98.6 ??F (37 ??C) Heart Rate: [65-83] 71 Resp: [0-19] 15 BP: (97-132)/(58-102) 110/76 Arterial Line BP: (91-126)/(46-61) 111/52 FiO2: [39 %-100 %] 40 % I/O: Date 10/17/25699 - 10/18/25 0659 10/18/25 07 - 10/19/25 0659 Shift [id number] 24 Hour Total [id number] 8112-6264 [id number] 24 Hour Total INTAKE I.V.(mL/kg) 8000(80.2) 394.1(3.9) 8394.1(84.1) 50.8(0.5) 50.8(0.5) Volume (mL) Insulin 89.9 89.9 12 12 Volume (mL) Epinephrine 7.3 7.3 Volume (mL) Propofol 118.3 118.3 10.8 10.8 Volume (mL) Fentanyl 52.8 52.8 14.6 14.6 Volume (mL) Vasopressin 71.3 71.3 13.3 13.3 Volume (mL) Norepinephrine 54.6 54.6 Volume (mL) (electrolyte-R (pH 7.4) (NORMOSOL-R pH 7.4) IV solution) 8000 8000 Blood 4950 4950 Cell Saver - Volume 500 500 Volume (Transfuse RBC) 350 350 Volume (Transfuse RBC) 350 350 Volume (Transfuse Platelets) 250 250 Volume (Transfuse Cryoprecipitate Transfusion Rate: Per dept routine) 75 75 Volume (Transfuse Cryoprecipitate) 75 75 Volume (Transfuse RBC) 350 350 Volume (Transfuse RBC) 350 350 Volume (Transfuse RBC) 350 350 Volume (Transfuse Cryoprecipitate) 75 75 Volume (Transfuse Cryoprecipitate) 75 75 Volume (Transfuse Platelets) 250 250 Volume (Transfuse Fresh Frozen Plasma) 300 300 Volume (Transfuse Fresh Frozen Plasma) 300 300 Volume (Transfuse Fresh Frozen Plasma) 300 300 Volume (Transfuse Fresh Frozen Plasma) 300 300 Volume (Transfuse Cryoprecipitate) 75 75 Volume (Transfuse Cryoprecipitate) 75 75 Volume (Transfuse Platelets) 250 250 Volume (Transfuse Fresh Frozen Plasma) 300 300 NG/GT 30 30 60 30 30 Flushes (mL) (NG/OG Tube Nasogastric Right nostril) 30 30 60 30 30 IV Piggyback 120 475 808 0810 62.6 62.6 Volume (mL) (methylPREDNISolone sodium succinate (SOLU-medrol) 500 mg in sodium chloride 0.9 % 100 mL IVPB) 100 100 Volume (mL) (AMPicillin 2 g in sodium chloride 0.9% 100 mL IVPB ([id number])) 100 200 300 Volume (mL) (albumin human bottle 5%) 500 500 Volume (mL) (albumin human bottle 25%) 50 50 Volume (mL) (AMPicillin 1 g in sodium chloride 0.9% 100 mL IVPB ([id number])) 97.4 97.4 Volume (mL) (mycophenolate (CELLCEPT) 500 mg in dextrose 5% in water (D5W) 50 mL IVPB) 50 50 Volume (mL) (acetylcysteine (ACETADOTE) 200 mg/mL (20 %) 20 g in sodium chloride 0.45% (1/2 NS) 500mL infusion) 488.2 488.2 Volume (mL) (acetylcysteine (ACETADOTE) 200 mg/mL (20 %) 10 g in sodium chloride 0.45% (1/2 NS) 1,000 mL infusion) 45.3 45.3 62.6 62.6 Volume (mL) (cefTRIAXone (ROCEPHIN) 2 g in sodium chloride 0.9% 20 mL IV Push) 20 20 Shift Total(mL/kg) 120(1.2) 93134(138.6) 1105.1(11.1) 54211.1(150.9) 143.4(1.4) 143.4(1.4) OUTPUT Urine(mL/kg/hr) 1850(2.3) 1000(1.3) 2850(1.2) 355 355 Urine 1850 1850 Urine Occurrence 1 x 1 x Output (mL) (IUC (Iniguez) 16 Fr.) 1000 1000 355 355 Emesis/NG output 100 100 Drainage Output (mL) (NG/OG Tube Nasogastric Right nostril) 100 100 Drains 175 450 625 Output (mL) (Drain 1 Abdomen Inferior;Lateral;Right) 75 150 225 Output (mL) (Drain 2 Abdomen Inferior;Lateral;Left) 100 300 400 Blood 82254 30206 Est Blood Loss 71917 23167 Shift Total(mL/kg) 65306(130.5) 1550(15.5) 43535(146.1) 355(3.6) 355(3.6) Weight (kg) 99.8 99.8 99.8 99.8 99.8 99.8 99.8 99.8 Drain Output and Description: - Perihepatic Drain 225 mL (SS) - Hilar Drain 400 mL (SS) - N mL Physical Exam: Gen: NAD CV: RRR Resp: nonlabored breathing Abd: Soft, NT/ND, Wound: c/d/I with some strike through on dressing Ext: warm and well perfused, MARGI : iniguez in place Labs: Recent Labs 10/17/25 2250 10/18/25 0502 10/18/25 1121 WBC 5.8 7.0 10.9* HGB 9.5* 9.6* 10.2* HCT 27.5* 27.6* 29.0* PLT 52* 36* 29* Recent Labs 10/17/25 2250 10/18/25 0502 10/18/25 1121 NA 145 146 146 K 3.7 3.4* 3.9 CL 110 111* 114* CO2 27 26 25 BUN 17 22 26* CREATININE 0.79 0.93 1.01 GLUCOSE 225* 193* 113* CALCIUM 8.2* 7.8* 7.8* MG 1.8 2.0 2.0 PHOS 3.9 3.0 3.1 Recent Labs 10/17/25 1700 10/17/25 1742 10/17/25 1823 10/17/25 1926 10/17/25 2022 10/17/25 2125 10/17/25 2247 10/18/25 0659 10/18/25 0756 10/18/25 0911 10/18/25 1029 10/18/25 1104 10/18/25 1212 POCGLU 96 77 170* 207* 218* 227* -- -- -- -- -- -- -- POCGMD -- -- -- -- -- -- < > 187* 179* 165* 120* 121* 124* < > = values in this interval not displayed. Recent Labs 10/17/25 2250 10/18/25 0502 10/18/25 1121 AST 3,332* 2,612* 1,689* ALT 1141* 1072* 1034* BILITOT 4.5* 1.5 1.3 BILIDIRECT 3.22* 0.77* 0.74* ALKPHOS 63 50 60 ALBUMIN 2.2* 2.2* 2.2* 2.2* 2.3* 2.3* Recent Labs 10/17/25224910/18/25 0502 10/18/25 1121 INR 2.1* 2.2* 2.0* PROTIME 25.2* 26.0* 23.6* Imaging: US Abdomen Limited Result Date: 10/18/2025 EXAM: US ABDOMEN LIMITED EXAM: US DUPLEX [id number] COMPLETE INDICATION: Post-op liver transplant Day 1 DATE: 10/18/2025 8:03 AM EST COMPARISON: None TECHNIQUE: Grayscale imaging was performedwith attention to the right upper quadrant; color and spectral (duplex) Doppler analysis of the hepatic vasculature was also performed. FINDINGS: Liver: Normal morphology and surface contour of the liver allograft. Equivocal increased parenchymal echogenicity. No focal observations. Biliary/CBD: 4 mm. No intra or extrahepatic ductal dilatation. Gallbladder: Surgically absent.. Pancreas: Not visualized. Right kidney: 11.5 cm in length. Normal parenchymal echogenicity. No hydronephrosis. Other: No free fluid. DOPPLER: Hepatic Veins: Duplex evaluation of the hepatic vasculature demonstrates normal flow in the right, middle and left hepatic veins. Portal Veins: The right, left and main portal vein demonstrate hepatopetal flow. Hepatic Arteries: Right, main and left hepatic arteries demonstrate normal waveforms. Resistive Indices Main hepatic artery: 0.79-0.81 Right hepatic artery: 0.72-0.77Left hepatic artery: 0.74 IMPRESSION: RIGHT UPPER QUADRANT Equivocal increased echogenicity of the liver allograft. This could reflect some steatosis. LIVER DOPPLER Patent hepatic vasculature with normal waveforms.. Report Verified by: Balwinder Suárez MD at 10/18/2025 9:53 AM EST US Duplex [id number] Comp Result Date: 10/18/2025 EXAM: US ABDOMEN LIMITED EXAM: US DUPLEX [id number] COMPLETE INDICATION: Post-op liver transplant Day 1 DATE: 10/18/2025 8:03 AM EST COMPARISON: None TECHNIQUE: Grayscale imaging was performedwith attention to the right upper quadrant; color and spectral (duplex) Doppler analysis of the hepatic vasculature was also performed. FINDINGS: Liver: Normal morphology and surface contour of the liver allograft. Equivocal increased parenchymal echogenicity. No focal observations. Biliary/CBD: 4 mm. No intra or extrahepatic ductal dilatation. Gallbladder: Surgically absent.. Pancreas: Not visualized. Right kidney: 11.5 cm in length. Normal parenchymal echogenicity. No hydronephrosis. Other: No free fluid. DOPPLER: Hepatic Veins: Duplex evaluation of the hepatic vasculature demonstrates normal flow in the right, middle and left hepatic veins. Portal Veins: The right, left and main portal vein demonstrate hepatopetal flow. Hepatic Arteries: Right, main and left hepatic arteries demonstrate normal waveforms. Resistive Indices Main hepatic artery: 0.79-0.81 Right hepatic artery: 0.72-0.77Left hepatic artery: 0.74 IMPRESSION: RIGHT UPPER QUADRANT Equivocal increased echogenicity of the liver allograft. This could reflect some steatosis. LIVER DOPPLER Patent hepatic vasculature with normal waveforms.. Report Verified by: Balwinder Suárez MD at 10/18/2025 9:53 AM EST X-ray Portable Chest Result Date: 10/18/2025 EXAM: XR PORTABLE CHEST INDICATION: Shortness of breath TECHNIQUE: 1 view of the chest. COMPARISON:7 hours prior FINDINGS: Medical Devices: Endotracheal tube terminates over the midthoracic trachea.Enteric suction tube courses below level of diaphragms and outside the [id number]. Right internal jugular approach pulmonary artery catheter projects over the right main pulmonary. Right upper quadrant surgical drain in stable position. Heart and Mediastinum: Unchanged. Lungs and Pleura: Persistent left basilar pleural-parenchymal opacities. Right lung is grossly clear. No evidence for pneumothorax. Bones and Soft tissues: Unchanged. IMPRESSION: No significant interval change. Approved by Urban Schneider DO on 10/18/2025 6:40 AM ANDREW have personally reviewed the images and I agree with this report. Report Verified by: Oskar Kebede DO at 10/18/2025 7:02 AM EST X-ray Portable Chest Result Date: 10/17/2025 EXAM: XR PORTABLE CHEST EXAM: XR PORTABLE FEEDING TUBE CHECK INDICATION: Line Placement TECHNIQUE: 1 view of the chest. AP view the upper abdomen. COMPARISON: 12 hours prior FINDINGS: Medical Devices: Right IJ pulmonary artery catheter tip overlies the main right pulmonary artery. Endotracheal tubetip overlies the midthoracic trachea approximately 4 cm above level the david. Enteric suction tube tip and sidehole overlie the gastric body. Right upper quadrant surgical drains Heart and Mediastinum: Unchanged. Lungs and Pleura: Left basilar volume loss. Bibasilar parenchymal opacities, left greater than right. No radiographic pneumothorax. Indeterminate for pleural fluid. Bones and Soft tissues: Unchanged. IMPRESSION: 1. Endotracheal tube tip overlies the midthoracic trachea 2. Pulmonary artery catheter tip overlies the main right pulmonary artery. No radiographic pneumothorax. 3. Bibasilar atelectasis, left greater than right. 4. Enteric suction tube tip and sidehole overlie the gastric body Report Verified by: Oskar Kebede DO at 10/17/2025 11:50 PM EST XR Portable Feeding Tube Check Result Date: 10/17/2025 EXAM: XR PORTABLE CHEST EXAM: XR PORTABLE FEEDING TUBE CHECK INDICATION: Line Placement TECHNIQUE: 1 view of the chest. AP view the upper abdomen. COMPARISON: 12 hours prior FINDINGS: Medical Devices: Right IJ pulmonary artery catheter tip overlies the main right pulmonary artery. Endotracheal tubetip overlies the midthoracic trachea approximately 4 cm above level the david. Enteric suction tube tip and sidehole overlie the gastric body. Right upper quadrant surgical drains Heart and Mediastinum: Unchanged. Lungs and Pleura: Left basilar volume loss. Bibasilar parenchymal opacities, left greater than right. No radiographic pneumothorax. Indeterminate for pleural fluid. Bones and Soft tissues: Unchanged. IMPRESSION: 1. Endotracheal tube tip overlies the midthoracic trachea 2. Pulmonary artery catheter tip overlies the main right pulmonary artery. No radiographic pneumothorax. 3. Bibasilar atelectasis, left greater than right. 4. Enteric suction tube tip and sidehole overlie the gastric body Report Verified by: Oskar Kebede DO at 10/17/2025 11:50 PM EST Current Medications: Scheduled Meds: AMPicillin IVPB 1 g Intravenous Q6H heparin 5,000 Units Subcutaneous 3 times per day methocarbamoL 500 mg Intravenous Q8H [START ON 10/19/2025] methylPREDNISolone sod suc(PF) 125 mg Intravenous Once Followed by [START ON 10/20/2025] methylPREDNISolone sod suc(PF) 60 mg Intravenous Once Followed by [START ON 10/21/2025] methylPREDNISolone sod suc(PF) 50 mg Intravenous Once Followed by [START ON 10/22/2025] predniSONE 40 mg Oral Once Followed by [START ON 10/23/2025] predniSONE 30 mg Oral Once Followed by [START ON 10/24/2025] predniSONE 25 mg Oral Once Followed by [START ON 10/25/2025] predniSONE 20 mg Oral Daily 0900 mycophenolate (CELLCEPT) IVPB 500 mg Intravenous BID pantoprazole (PROTONIX) IV 40 mg Intravenous DAILY 0600 Continuous Infusions: acetylcysteine (ACETADOTE) 200 mg/mL (20 %) 10 g in sodium chloride 0.45% (1/2 NS) 1,000 mL infusion 10 g (10/18/25 0516) electrolyte 75 mL/hr (10/18/25 0855) insulin regular in 0.9 % sodium chloride 3 Units/hr (10/18/25 1032) norepinephrine Stopped (10/18/25 0530) vasopressin Stopped (10/18/25 0909) PRN Meds: HYDROmorphone OR HYDROmorphone Assessment/Plan David Serrano is a 65 y.o. 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 S/p OLT Decreased portal vein flow, ligated renal vein requiring duodenal manipulation Transaminitis- improving - POD1 US showed patent vasculature, and possible steatosis - MMPC - NAC started, follow up LFTs - pred taper, cellcept - start tac tonight - NPO - NG stays - continue ampicillin Acute hypoxic respiratory failure-improving - extubated 10/18 - wean O2 per SI PPX: SQH, SCD, PPI Dispo: SICU LETICIA LOMELI MD Transplant Surgery [facility] Surgery Resident Cosigned by Vani Winkler MD at 10/18/2025 2:21 PM EST Associated attestation - Vani Winkler MD - 10/18/2025 2:21 PM EST This patient was seen and examined by the ELÍAS/Resident team on 10/18/2025. I have discussed the patient's care with the team. Immunosuppression reviewed and discussed with multidisciplinary team. I have personally seen and examined this patient on 10/18/2025. Vani Winkler MD PhD Transplant Surgery * Teresa العلي RRT - 10/18/2025 9:34 AM EST Pt extubated to HFNC 5L * Cori Womack PharmD - 10/18/2025 7:32 AM EST Transplant Pharmacy Note Transplant pharmacy is following David Serrano during hospital admission. Patient medical record and transplant evaluation has been reviewed and home medications will be reinitiated as appropriate. Transplant pharmacy will perform the following activities related to transplant pharmacotherapy: 1. Ensure appropriate management and titration of immunosuppressive, prophylactic, and other supportive care medications; 2. Monitor for any adverse drug effects; 3. Review the patient's medication profile for any potential drug interaction. Per programmatic guidelines, this patient will receive the following immunosuppressive regimen: Liver Transplant - Immunosuppression guidelines: to be determined Protocol Antibody Steroids Antimetabolite Calcineurin Inhibitor STANDARD Includes all recipients (including SLKT) and all types of donors (including SPLIT) None Taper Initiate PRE-op Mycophenolate mofetil (MMF) 500mg po q 12 Initiate on POD#0 Tacrolimus 2-4mg/dose q 12h Initiate by POD#2 Target Levels: POD #0-30: 10-12 ng/mL POD #31-180: 8-10 ng/mL POD #> 180: 3-8 ng/mL Or Protocol Antibody Steroids Antimetabolite Calcineurin Inhibitor CNI Delay Includes recipients 1) Altered mental status (physician discretion) Basiliximab (Simulect) 20 mg IV 2 doses: POD #1 and POD #4 Taper Initiate PRE-op Mycophenolate mofetil (MMF) 500mg po q 12 Initiate on POD#0 Tacrolimus 2-4mg/dose q 12h Initiate by POD#5-7 Target Levels: Per STANDARD category but may consider reduced target levels in ther early post period in setting of ongoing renal dysfunction Cori Womack PharmD Solid Organ Transplant Clinical Skid Strapper Contact via [employer] Secure Chat * Karen Washington, CAREER INFORMATION SPECIALIST - 10/18/2025 5:32 AM EST SBT started at 0435 completed at 0520 Patient on +5 and 40% RR: 7-12 Vt: 679-940 RSBI: 10-12 AB.34/48/84/25 Patient placed on Delta 5 post SBT documented in this encounter H&P Notes * Aspen Parr MD - 10/17/2025 10:27 AM EST Transplant Surgery History and Physical Patient: David Serrano CSN: [id number] History CC: ESLD HPI: David Serrano is a 65 y.o. 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 Decompensations: ascites on furosemide and spironolactone w/ intermittent paracentesis, small esophageal varicies w/o banding, portal gastropathy, hepatic encephalopathy on lactulose and rifaximin Hx of Cardiopulmonary Disease: grade II diastolic dysfunction, moderate intrapulmonary shunt David Serrano otherwise feels well and has not had any recent illness, hospitalization, or changes in health/medications. MELD 3.0: 20 at 09/24/2025 2:11 PM Calculated from: Serum Creatinine: 0.84 mg/dL (Using min of 1 mg/dL) at 09/24/2025 2:11 PM Serum Sodium: 137 mmol/L at 09/24/2025 2:11 PM Total Bilirubin: 3.4 mg/dL at 09/24/2025 2:11 PM Serum Albumin: 2 g/dL at 09/24/2025 2:11 PM INR(ratio): 1.9 at 09/24/2025 2:11 PM Age at listing (hypothetical): 65 years Sex: Male at 09/24/2025 2:11 PM PMH: Past Medical History: Diagnosis Date Epididymitis Hemochromatosis Hypertension Kidney stone Metabolic dysfunction-associated steatotic liver disease and increased alcohol intake (MetALD) Portal vein thrombosis UTI (urinary tract infection) PSH: Past Surgical History: Procedure Laterality Date HERNIA REPAIR Medications: Home Medications Medication Sig Taking? Last Dose calcitRIOL (ROCALTROL) 0.25 MCG capsule Take 1 capsule (0.25 mcg total) by mouth. Take 1 capsule bymouth 5 times a week. Once daily Wednesday through Wednesday Yes 10/16/2025 ergocalciferol (ERGOCALCIFEROL) 1,250 mcg (50,000 unit) capsule Take 1 capsule (50,000 Units total)by mouth once a week. Yes 10/16/2025 furosemide (LASIX) 20 MG tablet Take 2 tablets (40 mg total) by mouth daily. Yes 10/16/2025 omeprazole (PRILOSEC) 20 MG capsule Take 2 capsules (40 mg total) by mouth daily. Yes 10/17/2025 Morning spironolactone (ALDACTONE) 50 MG tablet Take 3 tablets (150 mg total) by mouth daily. Yes 10/16/2025 XIFAXAN 550 mg Tab tablet Take 1 tablet (550 mg total) by mouth 2 times a day. Yes 10/16/2025 Allergies: Lisinopril SH: Social History Socioeconomic History Marital status: Spouse [...] Resource Strain: Low Risk (06/15/2025) Received from Overall Financial Resource Strain (CARDIA) How hard is it for you to pay for the very basics like food, housing, medical care, and heating?: Not hard at all Food Insecurity: No Food Insecurity (06/15/2025) Received from Hunger Vital Sign Within the past 12 months, you worried that your food would run out before you got the money to buymore.: Never true Within the past 12 months, the food you bought just didn't last and you didn't have money to get more.: Never true Transportation Needs: No Transportation Needs (06/15/2025) Received from PRAPARE - Transportation In the past 12 months, has lack of transportation kept you from medical appointments or from getting medications?: No In the past 12 months, has lack of transportation kept you from meetings, work, or from getting things needed for daily living?: No Physical Activity: Inactive (06/15/2025) Received from Exercise Vital Sign On average, how many days per week do you engage in moderate to strenuous exercise (like a brisk walk)?: 0 days On average, how many minutes do you engage in exercise at this level?: 0 min Stress: No Stress Concern Present (06/15/2025) Received from [employer] - Occupational Stress Questionnaire Do you feel stress - tense, restless, nervous, or anxious, or unable to sleep at night because yourmind is troubled all the time - these days?: Only a little Social Connections: Socially Integrated (06/15/2025) Received from Social Connection and Isolation Panel In a typical week, how many times do you talk on the phone with family, friends, or neighbors?: More than three times a week How often do you get together with friends or relatives?: More than three times a week How often do you attend latter-day or islam services?: More than 4 times per year Do you belong to any clubs or organizations such as latter-day groups, unions, fraternal or athletic groups, or school groups?: Yes Attends Club or Organization Meetings: Not on file Are you , , , , never , or living with a partner?: Intimate Partner Violence: Not At Risk (10/17/2025) Humiliation, Afraid, Rape, and Kick questionnaire Fear of Current or Ex-Partner: No Emotionally Abused: No Physically Abused: No Sexually Abused: No Housing Stability: Low Risk (06/15/2025) Received from Housing Stability Vital Sign In the last 12 months, was there a time when you were not able to pay the mortgage or rent on time?: No In the past 12 months, how many times have you moved where you were living?: 0 At any time in the past 12 months, were you homeless or living in a longterm (including now)?: No FH: No family history on file. Family history was reviewed and is non-contributory. ROS: Review of Systems Constitutional: Negative for activity change, appetite change, chills and fever. Eyes: Negative for pain and itching. Respiratory: Negative for chest tightness and shortness of breath. Cardiovascular: Negative for chest pain and palpitations. Gastrointestinal: Negative for abdominal distention and abdominal pain. Genitourinary: Negative for dysuria and flank pain. Musculoskeletal: Negative for arthralgias, myalgias, neck pain and neck stiffness. Skin: Negative for rash and wound. Neurological: Negative for tremors and weakness. Psychiatric/Behavioral: Negative for agitation and behavioral problems. Vital Signs Temp: [97.1 ??F (36.2 ??C)] 97.1 ??F (36.2 ??C) Heart Rate: [61] 61 Resp: [16] 16 BP: (120)/(71) 120/71 Vitals: 10/17/25 0939 BP: 120/71 Pulse: 61 Resp: 16 Temp: 97.1 ??F (36.2 ??C) SpO2: 100% Physical Exam Physical Exam Constitutional: General: He is not in acute distress. Appearance: Normal appearance. He is not toxic-appearing. HENT: Head: Normocephalic and atraumatic. Right Ear: External ear normal. Left Ear: External ear normal. Nose: Nose normal. Mouth/Throat: Mouth: Mucous membranes are moist. Pharynx: Oropharynx is clear. Eyes: Conjunctiva/sclera: Conjunctivae normal. Pupils: Pupils are equal, round, and reactive to light. Cardiovascular: Rate and Rhythm: Normal rate and regular rhythm. Pulmonary: Effort: Pulmonary effort is normal. Abdominal: General: Abdomen is flat. There is no distension. Palpations: Abdomen is soft. Tenderness: There is no abdominal tenderness. Musculoskeletal: General: Normal range of motion. Cervical back: Normal range of motion. Skin: General: Skin is warm. Capillary Refill: Capillary refill takes less than 2 seconds. Neurological: General: No focal deficit present. Mental Status: He is alert and oriented to person, place, and time. Psychiatric: Mood and Affect: Mood normal. Behavior: Behavior normal. Laboratory Data Admission labs pending Imaging Studies X-ray Portable Chest Result Date: 10/17/2025 EXAM: XR PORTABLE CHEST INDICATION: Encounter for other preprocedural examination TECHNIQUE: 1 viewof the chest. COMPARISON: CT chest, September 10, 2025. FINDINGS: Medical Devices: None. Heart and Mediastinum: Cardiomediastinal silhouette is stable. Lungs and Pleura: Slightly under inspiratory chest film. A few small scattered scarlike opacities noted. Bones and soft tissues: No acute abnormalities. Mild arthritic changes noted in the bilateral AC joints. IMPRESSION: No acute cardiopulmonary abnormality, within the slightly under inspiratory chest film.Report Verified by: Hayes Meadows MD at 10/17/2025 10:21 AM EST Assessment and Plan HPI: David Serrano is a 65 y.o. 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 Consent obtained and patient site marked. Labs, EKG, and CXR reviewed. Cyndi-op antibiotics and immunosuppression ordered. Plan to proceed to OR for liver transplant and will be admitted to SICU post-op. ASPEN PARR MD [facility] General Surgery Liver Transplant Pager: [phone] 10:28 AM 10/17/2025 Cosigned by Vani Winkler MD at 10/18/2025 2:18 PM EST Associated attestation - Vani Winkler MD - 10/18/2025 2:18 PM EST I saw and evaluated the patient, and discussed with the ELÍAS/resident team. I agree with the ELÍAS/resident???s findings and plan as documented in the ELÍAS/resident???s note. Standard induction immunosuppression with methylpred in ahepatic phase. Risks and benefits of OLT reviewed. Vani Winkler MD PhD Transplant Surgery documented in this encounter Procedure Notes * Vani Winkler MD - 10/17/2025 10:00 PM EST Patient Name: David Serrano Date: 1960 Billing #: [id number] Date of Procedure: 10/17/2025 Diagnosis: Chronic Hepatic Failure without coma Procedure: 1. Orthotopic Liver Transplant 2. Back Bench Preparation Donor Liver 3. Left renal vein ligation 4. Intraoperative dopper ultrasound on liver 5. Liver allograft biopsy Attending surgeons: Surgeons and Role: * Vani Winkler MD - Primary * Popeye Russlel MD - Assisting * Elida Wyatt MD - Assisting Findings: Whole organ placed in piggyback fashion with suprahepatic cava of donor to common orifice of all three hepatic veins for IVC anastomosis. Donor main portal vein to recipient main portal vein. Donor celiac axis to recipient GDA/common hepatic artery branch patch. Ligation of left renal vein. Bwcf-fy-bemy anastomosis performed without stent. Portal Flow Modulation Yes- ligation of left renal vein Portal vein flow - pre-ligation 840, PI 0.3; post-ligation 1.7, PI 0.2 Hepatic artery flow - 260, PI 1.4 Anesthesia: GETA Blood/Fluid Products: Allogenic PRBC units: 5 Autologous Cell Saver: 2.4 L FFP: 4 Cryo: 3 Platelets: 4 Cold Ischemic Time: 4 hours, 42 minutes Warm Ischemic Time: 35 minutes Operative Times: Cross clamp on donor: 10/17/2025 @12:50 Incision on recipient: 10/17/2025 @14:48 Liver taken out of ice: 10/17/2025 @17:32 Liver reperfused: 10/17/2025 @18:07 Donor/Recipient Risk Characteristics DCD Donor: No NRP Donor: No Machine Perfusion: No LiverGuard Utilized: No Portal vein thrombosis (including partial or past PVT): No Previous liver transplant: No Previous other solid organ transplant: No Recipient on ventilator on transport to OR: No Recipient on CRRT or iHD prior to transport to OR: No Recipient on vasopressors prior to transport to OR: No Recipient in ICU prior to transport to OR: No Any previous abdominal surgery: Yes Prior TIPS: No Donor macrovesicular fat >30%: Yes Indications for Procedure: This is a 65 y.o.-year-old male who has alcohol and A1AT liver disease and chronic liver failure complicated by ascites and HE with a MELD score of 20. A donor organ became available. This donor was ABO O and UNOS ID [id number], Match Run [id number]. This was a 56 yearold brain donor maintained on [facility]. Liver function tests were normal. Our team recovered the liver. It looked beautiful in-situ and on the back table. The donor did not have risk factors for blood-borne disease transmission. All donors and living donors are tested for HIV, HBV, andHCV so the risk for undetected infections is very low, but not zero. Some donors may have risk factors for acute HIV, HBC and HCV infection related to recent social history of injection drug abuse, risky sexual behavior, incarceration or unknown history within the past 30 days. After transplantation, all transplant recipients will be tested for HIV, HBV, and HCV infection. If transmission occurs,there are effective therapies available. This donor has the following positive serologies: None. I p ersonally confirmed that the donor ABO was O and the patient was ABO A, which are compatibles bloodtypes, prior to implantation in the recipient. Patient was induced with Solu-Medrol. Due to the nature of the liver transplant, this case required two attending surgeons and lack of available help, Dr. Nugent served as assistant printer floor covering surgeon. Procedure: Back bench preparation of donor liver allograft Dr. Nugent will dictate this portion of the case. Hepatectomy The patient brought to the operating room table. After induction of general endotracheal anesthesia, appropriate lines were placed sterilely. Right arm was tucked and left arm was left out. The abdomen and chest was prepped and draped in sterile fashion. Timeout was performed and perioperative antibiotics were confirmed as being given. The abdomen was entered through a eliseo incision using cautery to cut through the subcutaneous tissue and muscle and enter the abdomen under direct visualization. Clear ascites was encountered, cultured and removed totaling 3 L. The Reece retractor was placed and the liver was exposed. It was clearly cirrhotic. There was no evidence of metastatic cancer. No other abnormalities were found in the abdomen. The liver was then mobilized by taking down the right and left triangle ligaments. The bare of the liver was taken all the way down to the level of the hepatic veins. The right lobe of the liver was then mobilized from the retroperitoneum exposing the lateral border of the IVC. We then turned our attention to the dissection of the lydia hepatis. W e incised the overlying peritoneum and then identified and ligated the cystic duct. The bile duct was then exposed and divided. The left and right hepatic arteries were dissected free and ligated with clips. Finally the portal vein was exposed and freed from the investing tissue down to the level of the pancreas. There was no evidence of portal vein thrombus. We then turned our attention to the piggyback freeing the liver from the IVC by ligating short hepatic veins using either suture ligatureor the ligasure. The liver was mobilized from the right to the left off the cava. We ensure that the caudate lobe was mobilized off the cava as well. The groove between the right and middle/left hepatic vein confluence was dissected out. The left phrenic vein was circled and divided where it inserts into the left hepatic vein. A test clamp was then performed by placing a vascular clamp across theportal vein. After confirming stability with anesthesia, the portal vein was divided between clamps. A zimmerman clamp was placed across the right hepatic vein and a Satinksy was placed across the left/m iddle hepatic vein trunk. The liver was then cut out. Allis clamps were aligned along the hepatic vein orifices. A test clamp was then preformed by placing a Klintmalm clamp across the outflow of theliver for a partial caval clamp. The orifice of the right hepatic vein was joined to the common orifice of the middle/left hepatic vein confluence. Liver Transplant Implantation, intraoperative liver ultrasound The liver was then brought to the field. A 2 cm slit was cut in the posterior wall of the suprahepatic donor cava for size match. The suprahepatic cava of the donor was anastomosed to the common orifice of the right/middle/left hepatic veins using 4-0 prolene in a running fashion. After completion of the outflow anastomosis, a Tuvaluan clamp was placed across the donor suprahepatic cava and the Klintmalm clamp was removed from the recipient IVC to increase venous return. We flushed the portal vein and the flow was moderate flow and adequate. No sentinel clot was evacuated. The portal vein was then flushed with heparinized saline. The portal vein was then anastomosed to the recipient portal vein. We made sure to keep the alignment perfect. This was done with a 6-0 Prolene in a running fashion. A growth factor was left. Patient received normal anhepatic agents such as bicarbonate, calcium and mannitol. A blood flush was performed through the infrahepatic cava and the infrahepatic cava wascontrolled with two 0 silk ties. The patient tolerated reperfusion well. The liver reperfused quitenicely. Areas of bleeding were then controlled along the diaphragm and the right retroperitoneum. Reperfusion was complete without incident. The hepatic artery was then reconstructed. We dissected the hepatic artery back to the right left bifurcation. An anastomosis was then constructed with a 7-0 prolene between the donor celiac axis and GDA/common hepatic artery of the recipient. The GDA was preserved. There was good pulsatile flow through GDA and splenic artery following release of the clamp, which were subsequently clipped. There was a good thrill and bruit in the artery. The portal vein and hepatic artery flows were then measured with the Medistem device. The portal flow was 840 and the hepatic artery flow was 260. An intraoperative doppler ultrasound of the liver was then performed and confirmed normal and appropriate portal venous and hepatic artery waveforms on the right and left of the liver. The outflow was assessed as well and there were normal waveforms in the right, middle and left hepatic veins. Left renal vein ligation Given the low portal flow and large splenorenal shunt on pre-operative imaging. We elected to ligate the left renal vein. We dropped the hepatic flexure of the oclon and performed a ruslan maneuver to medialize the duodenum. The left renal vein was identified and encircled with a vessel loop. We placed a clamp on the left renal vein. The portal flow doubled. At this time, we ligated the left renal vein with two 0 silk ties and placed a large clip. The left renal vein was not divided. The portalvein flow was then re-measured with the Medistem device. The portal flow was 1.7. After making sure there was no further bleeding, we then performed a mfew-ha-drgm anastomosis. There was no stent placed. This was done by keeping the edges aligned and performing a running 6-0 PDS biliary anastomosis. After doing this, we then further examined for further bleeding. Liver allograft biopsy We performed core needle biopsies of the left and right hepatic lobes with an 18G needle and sent them to pathology for permanent section. A 19F Silvana drain was left behind the liver. Another 19F silvana drain was left over the portal triad. Hemostasis of the abdominal cavity was ensured. At the end of the case, the liver appeared to be reperfused quite nicely. The fascia was then closed with #1 PDS and the skin was closed with radha.The patient remained intubated and sent to the SICU for recovery. Sponge and needle counts were correct x 2. Wand was negative for sponges or ray-tecs. I was present for the entire procedure. * Felice Nugent III, MD - 10/17/2025 8:00 PM EST Patient Name: David Serrano Date: 1960 Billing #: [id number] Date of Procedure: 10/17/2025 Diagnosis: Chronic Hepatic Failure without coma Procedure: 1. Back Bench Preparation Donor Liver Attending surgeons: Felice Nugent III, MD Visual Merchandising Coordinator Surgeon(s): Morena Haley MD Indications for Procedure: This is a 65 y.o.-year-old male who has alcohol and A1AT liver disease and chronic liver failure complicated by ascites and HE with a MELD score of 20. A donor organ became available. This donor was ABO O and UNOS ID [id number], Match Run [id number]. This was a 56 yearold brain donor maintained on [facility]. Liver function tests were normal. The liver was allocate d to our center as an open offer from the [facility]. Our team recovered the liver. It looked beautiful in-situ and on the back table. Mr. Serrano was selected as he was a good size match for the liver allograft. The donor did not have risk factors for blood-borne disease transmission. All donors and living donors are tested for HIV, HBV, and HCV so the risk for undetected infections is very low, but not zero. Some donors may have risk factors for acute HIV, HBC and HCV infection related torecent social history of injection drug abuse, risky sexual behavior, incarceration or unknown history within the past 30 days. After transplantation, all transplant recipients will be tested for HIV, HBV, and HCV infection. If transmission occurs, there are effective therapies available. This donor has the following positive serologies: None. I personally confirmed that the donor ABO was O and the patient was ABO A, which are compatibles blood types, prior to implantation in the recipient. Patient was induced with Solu-Medrol. Due to the nature of the liver transplant, this case required twoattending surgeons. Dr. Winkler performed the liver transplant and I assisted her. I performed the backbench and will dictate it here. Procedure: Back bench preparation of donor liver allograft The organ was examined and verified that it was indeed a blood group O organ and was intended for this recipient. This was verified with the operating room team. The liver was then placed in chilled [employer] solution. The liver was well flushed, was soft and had sharp edges with somemicrosteatosis - it was a suitable graft. The top cava was freed of diaphragm and pericardium, ligating small phrenic vein branches as we removed this tissue. The adrenal glad was removed from the lower cava and the adrenal vein ligated. The portal vein was identified and dissected free of the investing tissue until the bifurcation of the portal vein was evident. Branches of the portal vein were identified and ligated with ties and clips. Attention was then turned to the arterial dissection. The common hepatic artery was cleaned to the level of the gastroduodenal artery. The splenic artery and left gastric artery were identified and preserved on the celiac axis. The branches from the arterywere controlled with clips and ties. The gallbladder was taken off in the standard top down fashionand the cystic duct and artery ligated with clips and ties. The liver was resubmerged in preservation solution until ready for implantation. * Popeye Russell MD - 10/17/2025 2:48 PM EST TRANSPLANT LIVER Brief Op Note David Serrano 10/17/2025 Pre-op Diagnosis: end-stage liver disease Post-op Diagnosis: Same Procedure(s): TRANSPLANT LIVER Left renal vein ligation Surgeon(s): MD Vani Mcleod MD Giulia Bencini, MD Anesthesia: General Staff: Tool Programmer: Mita Hernandez RN; Aspen Coleman RN Relief Tool Programmer: Clartiza Mckinnon, SILVIO; Jonatan De La O, RN; Clair Sanders RN Scrub Person: Samson Mcbride RN Fellow: Chelsie Haley MD Float: Nadia Woodruff RN; Jyotsna Singleton RN; Farzana Hamilton; Lizz Cota RN Resident: Aspen Parr MD Estimated Blood Loss: 11 L Specimens: [place] liver and gallbladder Left liver core needle biopsy Right liver core needle biopsy Peritoneal fluid for culture Drains: Drain 1 Abdomen Inferior;Lateral;Right (Active) Number of days: 0 Drain 2 Abdomen Inferior;Lateral;Left (Active) Number of days: 0 IUC (Iniguez) 16 Fr. (Active) Number of days: 0 Transplant-Specific Information UNOS ID: [id number] Cross-clamp: 10/17/25 1250 Out of ice: 10/17/25 1732 Reperfusion: 10/17/25 1807 Anatomy Caval: Piggy back GALE: Celiac artery to hepatic/GDA patch Biliary: Duct to duct Flows: GALE: 260, PI: 1.4 PV: 840 (1.7 L after left renal vein ligation), PI: 0.3 (0.2 after left renal vein ligation) Drains: Right subhepatic Left hilar There were no complications unless listed below. POPEYE RUSSELL MD Date: 10/17/2025 Time: 10:18 PM documented in this encounter Consult Notes * Naomy Gomes RN - 10/22/2025 1:42 PM ESTAssociated Order(s): IP CONSULT TO INSURANCE SALESPERSON [facility] Transplant Discharge Education Note Assessment: Received referral for education from primary team. Pt is s/p liver transplant. RN met with pt and his at bedside to educate on Blood Glucose monitoring and insulin therapy prior to discharge.Pt states their daughter (now 28yo) was diagnosed with type 1 DM when she was younger, so they are familiar with everything. Educational Intervention: Reviewed and provided Pt with written educational materials covering the following topics: relationship between illness/pain/steroids and glucose levels, signs/symptoms and treatment of hyper/hypoglycemia, how and when to test with glucometer, insulin types and rationale for use, how to dial and inject insulin using insulin pens, how to draw up and inject using insulin syringe/vial, current insulin regimen. Educated on when to test, how to record BG values, pen use. Couple was also instructed on insulin regimen. Pt declined need for pen demonstration. Couple verbalized understanding of information discussed.Educator answered all questions. Discharge Regimen: Lispro LD SSI TID AC Provided pt with written insulin regimen for reference. Education Outcome: 4 - Demonstrates understanding/competency Naomy Gomes RN, MSN,[facility] Diabetes Education Office [phone] Schedule: M-F 8:00am-4:30pm * Oskar Arango RD - 10/22/2025 9:08 AM EST TXP - Follow-up [facility] Medical Nutrition Therapy Reason(s) for Completion: Physician/Nursing Referral - Liver TXP post-op admission Recommendations/Nutrition Interventions: Monitor PO Intake/Tolerance and Education/Counseling: Food Safety Diet + ONS as medically able Malnutrition Status: at risk for malnutrition Context: chronic illness Pertinent Information: David Serrano is a 65 y.o. 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 Pt seen for follow-up. present during visit. Reports good appetite. Denies n/v. Using ONS as prescribed. Reviewed post-txp nutrition guidelines with pt. Discussed nutrition related labs values s/p liver transplant and increased intake of appropriate foods. Emphasized the importance of food safety including cooking meats and reheating foods to proper temperatures, avoiding cross-contaminationwhen preparing foods, washing fruits and vegetables, and avoiding unpasteurized food products. Encouraged pt to avoid buffets, potlucks, etc. where the preparation and exposure of food is unknown. Also discussed food/drug interaction associated with grapefruit, as well as maintaining adequate hydration. Pt verbalizes basic understanding of diet guidelines. Contact info and Food Safety Nutrition Therapy/High Magnesium Foods handouts provided. Glucose: 96-230 x 24 hours. I/O: -3.8L net volume. Dietary Intake/History: Current Diet: Diet/Nutrition Orders Diet Regular(7) Frequency: Effective Now Number of Occurrences: Until Specified Order Questions: Suicide/Behavior Risk Modification? No Dietary nutrition supplements Frequency: TID Number of Occurrences: Until Specified Order Questions: Select Supplement: Magic Cup-thickened frozen supplement Dietary nutrition supplements Frequency: TID Number of Occurrences: Until Specified Order Questions: Select Supplement: Gelatein Plus- clear thickened, gelatin high protein ([facility] only) PO Meal Intake: Pt currently not taking any PO Appetite: [place] Estimated Nutrition Needs This Admission: No Feeding: Able to feed self Estimated Nutrition Needs (needs based on DBW of 70.4 kg) Kcals/day: 5286-3667 (25-30 kcal/kg) Protein g/day: 105-140 (1.5-2.0 g/kg) Carbohydrate g/day: 45-60 gm/meal Fluid ml/day: ~1mL/kcal or per MD *Needs based on clinical status at this time and subject to change. Anthropometrics: Height: Ht Readings from Last 1 Encounters: 10/17/25 5' 6 (1.676 m) Current Weight: Wt Readings from Last 1 Encounters: 10/17/25 220 lb (99.8 kg) BMI: Body mass index is 35.51 kg/m??. BMI Classification: Class 2 (35.00 - 39.99) BMI Desirable Weight: 155 lbs - based on BMI 25 kg/m^2 Usual Body Weight: 220 Weight History: Wt Readings from Last 10 Encounters: 10/17/25 220 lb (99.8 kg) 09/24/25 222 lb (100.7 kg) 09/10/25 217 lb 6.4 oz (98.6 kg) Pertinent Labs: Recent Labs 10/20/25 0531 10/21/25 0635 10/22/25 0528 WBC 6.1 8.4 6.6 HGB 8.5* 8.9* 9.3* HCT 24.6* 24.8* 26.4* PLT 17* 20* 22* Recent Labs 10/20/25 0531 10/21/25 0635 10/22/25 0528 NA 142 139 138 K 3.8 3.5 3.2* CL 111* 108 107 CO2 25 26 25 BUN 47* 39* 25 CREATININE 1.15 0.96 0.81 GLUCOSE 198* 126* 100 CALCIUM 6.8* 6.8* 6.8* MG 2.1 2.0 1.7 PHOS 4.8* 2.8 2.3 Recent Labs 10/20/25 0531 10/21/25 0635 10/22/25 0528 AST 161* 64* 42* ALT 532* 389* 270* BILITOT 0.9 0.9 1.0 BILIDIRECT 0.43* 0.41* 0.28 ALKPHOS 67 83 84 ALBUMIN 2.2* 2.2* 2.2* 2.2* 2.1* Recent Labs 10/19/25 2303 INR 1.4* PROTIME 18.2* No results for input(s): HGBA1C in the last 72 hours. Temp (24hrs), Av.5 ??F (36.9 ??C), Min:98.4 ??F (36.9 ??C), Max:98.7 ??F (37.1 ??C) Past Medical History: Diagnosis Date Epididymitis Hemochromatosis Hypertension Kidney stone Metabolic dysfunction-associated steatotic liver disease and increased alcohol intake (MetALD) Portal vein thrombosis UTI (urinary tract infection) Past Surgical History: Procedure Laterality Date HERNIA REPAIR LIVER TRANSPLANTATION N/A 10/17/2025 Procedure: TRANSPLANT LIVER; Surgeon: Vani Winkler MD; Location: [facility]; Service: Transplant; Laterality: N/A; Scheduled Meds: acetaminophen 975 mg Oral Q8H acyclovir 800 mg Oral BID albumin human 25% (12.5 g/ 50 mL) 50 mL Intravenous Q30 Min calcium gluconate 2 g Intravenous Q1HRS furosemide 40 mg Oral Daily 0900 [Held by provider] heparin 5,000 Units Subcutaneous 3 times per day insulin lispro 0-12 Units Subcutaneous TID AC magnesium sulfate 4 g Intravenous Once methocarbamoL 500 mg Oral QID mycophenolate 500 mg Oral BID pantoprazole 40 mg Oral DAILY 0600 pantoprazole (PROTONIX) IV 40 mg Intravenous DAILY 0600 potassium chloride 40 mEq Oral Once [START ON 10/23/2025] predniSONE 30 mg Oral Once Followed by [START ON 10/24/2025] predniSONE 25 mg Oral Once Followed by [START ON 10/25/2025] predniSONE 20 mg Oral Daily 0900 sod phos di, mono-K phos mono 500 mg Oral Q4H sulfamethoxazole-trimethoprim 1 tablet Oral Daily 0900 tacrolimus 3 mg Oral BID Continuous Infusions: PRN Meds:dextrose 10% in water OR dextrose 10% in water, oxyCODONE OR oxyCODONE Potential Nutrition Related Factors: Skin Integrity: Surgical wound;Sky Scale Score: 18 Last BM Date: 10/21/25 GI: No GI symptoms currently, tolerating current nutrition regimen Abdomen Inspection: Nondistended Bowel Sounds (All Quadrants): Active Palpation/Percussion: Soft Passing Flatus: Yes Allergies: Allergies[1] Cultural Requests: No Edema: RLE Edema: Moderate pitting, indentation subsides rapidly LLE Edema: Moderate pitting, indentation subsides rapidly Chewing/Swallowing Issues: No Nutrition Diagnosis Problem: Increased kcal/protein needs Related To: Increased demand for nutrients As Evidenced By: Recent liver transplant, medically complex Nutrition Diagnosis Problem: Food- and nutrition-related knowledge deficit Related to: Exposure to new information As evidenced by: Recent liver transplant and subsequent need for medical nutrition therapy education Nutrition Monitoring and Evaluation: Goals: Total energy intake improved as evidenced by PO intake at least 75% of meals/supplements/snacks within 1-3 days and Voices/demonstrates knowledge of Food Safety education/counseling Patient will consume greater than or equal to 75% of meals for 3 consecutive days and Patient will consume 2 oral nutrition supplements/day during admission Goal Progress: Ongoing Indicators to Monitor: % of meals consumed (documented by nursing or patient report), Number of oral nutrition supplements consumed per day, Patient-reported appetite (poor, fair, good), GI tolerance: residuals, nausea, vomiting, diarrhea, constipation, abdominal distention, Medication side effectsimpacting appetite/intake, and Frequency and consistency of stools (diarrhea/constipation) Coordination of Nutrition Care: This information has been communicated to the transplant multidisciplinary team Follow up: per policy while inpatient. If patient is discharged, dietitian will be available for consultation on an as needed basis as identified by the multidisciplinary team. Joey Arango RD, LD Clinical Dietitian - Solid Organ Transplant Contact via [employer] Chat [1] Allergies Allergen Reactions Lisinopril Other (See Comments) * Citlaly Zimmerman RN - 10/19/2025 1:50 PM EST HEALTH Care Management/Social Work Assessment Patient Information Patient Name: David Serrano Hospital Day: 2 Inpatient/Observation: Inpatient Admit Date: 10/17/2025 Admission Diagnosis: TRANSPLANT LIVER Attending provider: Vani Winkler MD PCP: PROVIDER NOT IN SYSTEM Home Pharmacy: [facility] - [place], [place] - [address] [address] [facility] [address] [place] [address] [facility] [address] [facility] [address] [facility] [address] [facility] [address] [facility] [address] [facility] [address] Pertinent Medications Anticoagulation therapy: Yes Anticoagulant (Name of Drug): hosptial herparin protocol New Diabetic: No Issues related to obtaining medications: N/A Payor Information Medical Insurance Coverage: Payor: NANCY / Plan: BLUE ACCESS / Product Type: PPO / Secondary Payor: Transplant Global Functional Assessment Functional Assessment Assessment Information Obtained From:: Patient, Spouse May We Obtain Collateral Information From Family, Friends and Neighbors?: Yes How do you wish to be addressed?: Tanner Current Mental Status: Awake, Oriented to Person, Oriented to Place, Oriented to Time, Oriented to Situation Mental Status Prior to Admission: Unable to Assess Mental Health History: No Suicide Attempts: No Activities of Daily Living: Independent ADL Comments: As reported by pt and spouse Stacy Work History: Retired Marital Status: Number of children and their names: Stanley- Lan Serrano ([phone]) and Gloria Banegas ([phone]) Relative Search Completed: Yes Demographics Correct:: Yes Current Living Arrangements Current Living Arrangements Current Living Arrangements: Home Type of Housing: House Who do you live with?: With Family What family member?: Spouse Stacy One Story or Two (check all that apply): One Story Enter the number of steps and rails to enter the residence: `2 Enter the number of steps and rails inside the residence: 0 History of Falls?: Yes Frequency of Falls: Prior to diagonsis (Fell in grass outside when nauseated.) Community Services Community Services Community Services at Home: Not Applicable Was any abuse reported by patient?: No Status [facility] Connection to [facility] [place] Status & Connection to [facility] Services Are you a ?: No Support Systems Emergency contact: Extended Emergency Contact Information Primary Emergency Contact: KieshaStacy natarajan Address: [address] [place] [address] Mobile Relation: Spouse Support Systems Legal Status: HCPOA Name of Guardian/POA/ Payee and Phone Number: Stacy Serrano ([phone]) Primary Caregiver: Self, Spouse Caregiver name/phone number: Stacy Serrano ([phone]) Times of available support: Total 24/7 hands on (add comment) (Daughter and Friend willing to assist in pt post op care.) Marital Status: Number of children and their names: Stanley- Lan Serrano ([phone]) and Gloria Banegas ([phone]) Relative Search Completed: Yes Demographics Correct:: Yes Expected Discharge Disposition: Home with Home Care Next of Kin: Stacy Serrano Next of Kin Relationship: Spouse Next of Kin ) Assessment Information Obtained From:: Patient, Spouse Other Pertinent Information Per H&P documentation: Pt is a 65 y.o. male with history of end stage liver disease secondary to EtOH, heterozygote C282Y, MZ A1AT (level low at 77) who was directly admitted for liver transplantation. RN/CM met with pt and spouse Stacy (who) at bedside to complete psychosocial assessment for discharge planning as part of routine care. Pt agreeable to speaking with CM while family present. RN/CM introduced self, explained role of care management in the hospital, and explained reason for visit. Pt actively participated in assessment and verified demographic information. Pt is a 65 year old male, and living with spouse in a home in [place], [place]. Pt reports ~2 steps into residence and 0 inside residence. Pt reports having 2 children- Lan Serrano ([phone]) and Gloria Banegas ([phone]). Pt denies any concerns for safety or abuse at residence. Pt and spouse reported independent with ADLs. Pt over the last few week has experienced decline in strength. Trajectory anticipate home needs: Patient has significant new mobility limitations post-liver transplant, including dependence for transfers/ambulation and high fall risk, but prior function was independent. OT/PT recommendations are for Home OT/PT with home health, not inpatient rehab or SNF, and patient has 24-hour spouse support at home. Home environment has some accessibility barriers (steps,tub/shower), but these are being addressed with equipment recommendations and home health therapy. Pt reports being retired from work. Pt denies any financial concerns at this time. Pt denies history of or current mental health concerns or diagnoses. Pt endorses history of or current alcohol misuse, tobacco use, and/or drug/illicit substance use. Pt has hx with alcohol misuse and has been in sobriety since . Pt has hx with tobacco misuse, was a smoker then switch to chew products and stopped using around 2018. Pt denies any history of home oxygen, dialysis, DME use. Pt has the following DME at home: has a cane someone gave him but never used. Pt denies history of SNF, IPR, or HHC services. Patient is not connected to community resources to meet their needs. Recommend for HHC. [facility] aware. Patient and family report full support in pt recovery and appointment needs by family and friends. Patient does have a HCPOA. Copy place in pt chart with ID stickers. Patient is aware legal next of kin is spouse (also the HCPOA), Stacy Kiesha. LNOK and HCPOA: Stacy Roach ([phone]) PCP: Myles Toaddine Transportation: family Advance Directives (For Healthcare) Advance Directive: Patient has advance directive, copy in chart Type of Healthcare Directive: Durable power of industrial technician for health care Healthcare Agent Appointed: Yes Healthcare Agent's Name: Stacy Serrano Healthcare Agent's Pre-existing DNR/DNI Order: No Patient Requests Assistance: No Discharge Plan Met with patient to initiate discussion regarding discharge planning. Introduced self and role of case management/social work and provided contact information. Anticipated Discharge Plan: Home with [facility] Anticipated Discharge Date: 10/22/2025 Anticipated Transportation: Family Patient/Family aware and taking part in the discharge plan. Patient/family educated that once post-acute care needs have been identified, a provider list applicable to the identified post-acute care needs as well as the insurance provider will be provided, and patient/family have the freedom to choose their provider(s); financial interest(s) are disclosed as appropriate. CITLALY ZIMMERMAN RN/CM * Evelyn Galindo MD - 10/19/2025 6:41 AM EST Surgical ICU Consult Note / Progress Note Patient: David Serrano 10/19/2025 6:51 AM HPI: David Serrano is a 65 y.o. 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 OR Course (10/17/25): - Procedure: - liver transplant and left renal vein ligation - IVF: 8.5 L crystalloid - Blood Products: 5 reds; 5 FFPl 3 platelets; 3 cryo; Cell Saver 2400 mL, 550 mL Albumin - Vasopressors: Levo 4; vaso 0.03 - EBL: 11L - UOP: 1900 mL (40 IV lasix given intra-op for elevated filling pressures) - Other: 2L ascites Home medications: Calcitriol 0.25 mcg Carvedilol 3.125 mg BID Ergocalciferol 50,000 units/week Furosemide 40 mg daily Omeprazole 40 mg daily? Spironolactone 150 mg daily Xifaxan 550 mg BID 24 hour events: - [place] removed, introducer remains - Extubated to AL, now room air - NG pulled on rounds by transplant, ok for sips and chips Past Medical History: Diagnosis Date Epididymitis Hemochromatosis Hypertension Kidney stone Metabolic dysfunction-associated steatotic liver disease and increased alcohol intake (MetALD) Portal vein thrombosis UTI (urinary tract infection) Past Surgical History: Procedure Laterality Date HERNIA REPAIR LIVER TRANSPLANTATION N/A 10/17/2025 Procedure: TRANSPLANT LIVER; Surgeon: Vani Winkler MD; Location: [facility]; Service: Transplant; Laterality: N/A; Home Medications Medication Sig Taking? Last Dose calcitRIOL (ROCALTROL) 0.25 MCG capsule Take 1 capsule (0.25 mcg total) by mouth. Take 1 capsule bymouth 5 times a week. Once daily Wednesday through Wednesday Yes 10/16/2025 ergocalciferol (ERGOCALCIFEROL) 1,250 mcg (50,000 unit) capsule Take 1 capsule (50,000 Units total)by mouth once a week. Yes 10/16/2025 furosemide (LASIX) 20 MG tablet Take 2 tablets (40 mg total) by mouth daily. Yes 10/16/2025 acetaminophen (TYLENOL) 325 MG tablet Take 3 tablets (975 mg total) by mouth every 8 hours. acyclovir (ZOVIRAX) 400 MG tablet Take 2 tablets (800 mg total) by mouth 2 times a day. alcohol swabs PadM Use as instructed. apixaban (ELIQUIS) 2.5 mg Tab Take 1 tablet (2.5 mg total) by mouth 2 times a day. blood sugar diagnostic (GLUCOSE BLOOD) Strp Use to test blood sugar four times a day. blood-glucose meter Mis Use to test blood sugar four times a day. calcium-vitamin D 500 mg-5 mcg (200 unit) per tablet Take 1 tablet by mouth 2 times a day with meals. insulin lispro 100 unit/mL InPn Administer insulin with meals per sliding scale: Blood glucose 150-199 mg/dL= 2 units, Blood glucose 200-249 mg/dL= 4 units, Blood glucose 250-299 mg/dL= 7 units, Blood glucose 300-349 mg/dL = 10 units, Blood glucose >349 mg/dL = 12 units lancets [facility] [place] Use to test blood sugar four times a day. methocarbamoL (ROBAXIN) 500 MG tablet Take 1 tablet (500 mg total) by mouth 3 times a day. mycophenolate (CELLCEPT) 250 mg capsule Take 2 capsules (500 mg total) by mouth 2 times a day. pantoprazole (PROTONIX) 40 MG tablet Take 1 tablet (40 mg total) by mouth every morning before breakfast. pen needle, diabetic 32 gauge x Ndle For use with insulin pen. Use as instructed. polyethylene glycol (GLYCOLAX) 17 gram/dose powder Mix 1 capful (17 g) in 8 ounces of fluid and drink by mouth daily as needed for constipation. predniSONE (DELTASONE) 5 MG tablet Take 4 tablets (20 mg total) by mouth daily. senna-docusate (SENNOSIDES-DOCUSATE SODIUM) 8.6-50 mg per tablet Take 1 tablet by mouth at bedtime as needed for constipation. sulfamethoxazole-trimethoprim (BACTRIM) 400-80 mg per tablet Take 1 tablet by mouth daily. tacrolimus (PROGRAF) 1 MG capsule Take 10 capsules (10 mg total) by mouth 2 times a day. Allergies[1] Social History Tobacco Use Smoking status: Never Smokeless tobacco: Former Substance Use Topics Alcohol use: Not Currently Comment: Sober since February 2023 No family history on file. REVIEW OF SYSTEMS: Review of Systems conducted with patient and pertinent positives are noted in HPI. CONSTITUTIONAL Exam: intubated, sedated, in no acute distress Temp (24hrs), Av.7 ??F (37.1 ??C), Min:98.2 ??F (36.8 ??C), Max:99.3 ??F (37.4 ??C) A/P: - No active issues HEENT Exam: normocephalic, atraumatic, pupils equal, round, and reactive A/P: - No active issues RESPIRATORY Exam: breathing comfortably on room air Vent Settings No data found. Vent Mode: Spont PS/PEEP FiO2: [40 %-41 %] 40 % Spont TV: [902 mL] 902 mL PIP: [11 cm H2O] 11 cm H2O Delta Pressure Support (cm H2O): [5 cm H2O] 5 cm H2O PEEP/CPAP: [5 cm H20] 5 cm H20 O2 Device: Patient Vitals for the past 5 hrs: O2 Device 10/19/25 0435 None (Room air) 10/19/25 0400 None (Room air) ABG: Lab 10/18/25 0519 10/17/25 2250 PH ARTERIAL 7.34* 7.38 PCO2 ARTERIAL 48* 41 PO2 ARTERIAL 84 216* HCO3 ARTERIAL 25 24 BASE EXCESS ARTERIAL -0.2 -0.8 O2 SATURATION ARTERIAL 97 100 PF ratio: No PaO2 result within 12 hours. Pearson body weight: Pearson body weight: 63.8 kg (140 lb 10.5 oz) Adjusted ideal body weight: 78.2 kg (172 lb 6.3 oz) A/P: #Pulmonary hygiene - Now on room air, no longer intubated - Goal SpO2: >92% - If requiring O2, wean as tolerated #Moderate Intrapulmonary Shunt (identified on prior echo) - Room air at baseline - No acute intervention CARDIOVASCULAR Exam: Regular rate and rhythm Echo: Echo 06/13/25 (OSH): Left Ventricle: The left ventricle is normal [...] the degree of transpulmonary shunt is increased. Hemodynamics: No data found. Vitals: Temp: [98.2 ??F (36.8 ??C)-99.3 ??F (37.4 ??C)] 98.2 ??F (36.8 ??C) Heart Rate: [62-75] 62 Resp: [0-21] 12 BP: (101-161)/(65-102) 150/78 Arterial Line BP: (93-164)/(46-87) 162/77 FiO2: [40 %-41 %] 40 % A/P: Shock, perioperative vasoplegia - Goal MAP >65 - Pressors now off Moderate diastolic dysfunction HTN Home medications: Carvedilol 3.125 mg BID, Spironolactone 150 mg, furosemide 20 mg BID (also for ascites) - Hold in perioperative period GASTROINTESTINAL Exam: soft, nondistended, appropriately tender to palpation, surgical dressings in place with minimal strike-through. GABBIE drains SS. 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) d/b HE, ascites, esophageal varices S/P OLT 10/17/25 with left renal vein ligation Reperfusion injury - NGT stays for kocherized duodenum - 200mL output / 24 hrs - NAC for AST > 3000, now improving - Trend labs per protocol - POD1 ultrasound complete - equivocal echogenicity of allograft - Immunosuppression per ID section - JP1 360mL/24h (ss) - JP2 290mL/24h (ss) - Drains empty q4 hours Bowel regimen - LBM: Prior to arrival - Start bowel regimen when taking PO NUTRITION Current diet: Diet/Nutrition Orders Diet NPO Except for: except sips with meds Only oral med is tacro Frequency: Effective Now Number of Occurrences: Until Specified Order Comments: Only oral med is tacro Order Questions: Except for except sips with meds A/P: #At risk for malnutrition - Sips and chips - Advance diet per primary team. FLUIDS/ELECTROLYTES Admit Weight: Weight: 220 lb (99.8 kg) Last Weight: Weight: 220 lb (99.8 kg) Labs: Recent Labs 10/18/25 11210/18/25 17410/18/25 2220 NA 146 144 146 K 3.9 3.4* 3.1* CL 114* 112* 113* CO2 24 CALCIUM 7.8* 7.5* 7.4* MG 2.0 1.9 1.8 PHOS 3.1 3.8 4.0 ALBUMIN 2.3* 2.3* 2.2* 2.2* 2.1* 2.1* I&Os Intake/Output Summary (Last 24 hours) at 10/19/2025 0651 Last data filed at 10/19/2025 0631 Gross per 24 hour Intake 2490.47 ml Output 2335 ml Net 155.47 ml IVF: electrolyte, Last Rate: 75 mL/hr (10/19/25 0557) insulin regular in 0.9 % sodium chloride, Last Rate: 3 Units/hr (10/19/2557) A/P: Fluids: Normosol at 75/hr #Electrolyte derangements - Manual replacements - Q12 labs per protocol - K replaced RENAL Labs: Recent Labs 10/17/25 2250 10/18/25 05010/18/25 11210/18/25 17410/18/25 2220 NA 145 146 146 144 146 BUN 17 22 26* 29* 32* CREATININE 0.79 0.93 1.01 1.09 1.09 Urine lytes: No results for input(s): NAUR in the last 72 hours. Invalid input(s): CRUR Baseline Cr: 0.9. Urine output: 1,385 mL/24 hours A/P: - Trend labs per protocol - Cr 1.09, BUN 32 - No acute intervention SKIN/MUSCULOSKELETAL Exam: normal ROM, no rashes A/P: No active issues. HEMATOLOGIC Labs: Lab 10/18/25 2220 10/18/25 1747 10/18/25 1121 10/18/25 0502 10/17/25 2250 HEMATOCRIT 26.9* 28.3* 29.0* 27.6* 27.5* HEMOGLOBIN 9.5* 10.0* 10.2* 9.6* 9.5* PLATELETS 22* 22* 29* 36* 52* Lab 10/18/25 2220 10/18/25 1747 10/18/25 1121 10/18/25 0502 10/17/25 2250 INR 1.8* 1.8* 2.0* 2.2* 2.1* Lab 10/17/25 2250 10/17/25 2031 10/17/25 1839 10/17/25 1656 10/17/25 1455 FIBRINOGEN LEVEL 253 157* 159* 137* 85* A/P: #Acute blood loss anemia #Chronic anemia - CBC per protocol - Hb 9.5 this AM - Transfuse for Hgb < 7 Coagulopathy - Will transfuse if concerns for ongoing bleeding - Spot check TEG as needed ENDOCRINE FSBS range: Lab 10/19/25 0628 10/19/25 0610 10/19/25 0406 10/19/25 0204 10/18/25 2357 10/18/25 2220 10/18/25 2207 10/18/25 2014 10/18/25 1747 10/18/25 1745 10/18/25 1212 10/18/25 1121 10/18/25 0606 10/18/25 0502 10/17/25 2355 10/17/25 2250 10/17/25 2247 10/17/25 2125 10/17/25 2022 10/17/25 1926 10/17/25 1823 10/17/25 1742 10/17/25 1700 10/17/25 1559 10/17/25 1454 10/17/25 1018 POC GLU MONITORING DEVICE 109* 108* 115* 129* 131* -- 134* 138* -- 135* < > -- < > -- < > -- < > -- -- -- -- -- -- -- -- -- POCGLUART -- -- -- -- -- -- -- -- -- -- -- -- -- -- -- -- -- 227* 218* 207* 170* 77 96 81 74 -- GLUCOSE -- -- -- -- -- 129* -- -- 136* -- -- 113* -- 193* -- 225* -- -- -- -- -- -- -- -- -- 81 < > = values in this interval not displayed. Lab Results Component Value Date HGBA1C 4.0 10/17/2025 A/P: #Stress induced hyperglycemia Home regimen: None - Insulin gtt in perioperative period (currently off) - Discontinue insulin drip - Start HDSSI - Reassess for long acting tonight INFECTIOUS DISEASE Urine cultures Lab Results Component Value Date COLORU Yellow 09/24/2025 CLARITYU Cloudy (A) 09/24/2025 PROTEINUA 30 (A) 09/24/2025 PHUR 6.0 09/24/2025 LABSPEC 1.019 09/24/2025 GLUCOSEU Negative 09/24/2025 BLOODU Large (A) 09/24/2025 LEUKOCYTESUR Large (A) 09/24/2025 NITRITE Negative 09/24/2025 BILIRUBINUR Negative 09/24/2025 UROBILINOGEN <2.0 09/24/2025 RBCUA 61 (H) 09/24/2025 WBCUA >100 (H) 09/24/2025 BACTERIA Rare (A) 09/24/2025 Blood cultures Lab Results Component Value Date LABGRAM Rare Polymorphonuclear Leukocytes Seen 10/17/2025 LABGRAM No Organisms Seen; 10/17/2025 Labs Lab 10/18/25 2220 10/18/25 1747 10/18/25 1121 10/18/25 0502 10/17/25 2250 WBC 11.4* 11.8* 10.9* 7.0 5.8 Current abx Current Anti-Infectives Dose Frequency Start End AMPicillin 1 g in sodium chloride 0.9% 100 mL IVPB ([id number]) 1 g Every 6 hours 10/17/2025 10/19/2025 Admin Instructions: Dosage may need to be adjusted for renal dysfunction. Full dose is 1g IV q6h Use [id number] Adapter - Mix Thoroughly Before Administration Notes to Pharmacy: On patient transport orderly estimated creatinine clearance is 101.9 mL/min (based on SCr of 0.81 mg/dL). Route: Intravenous Linked Group 1: Placed in And Linked Group cefTRIAXone (ROCEPHIN) 2 g in sodium chloride 0.9% 20 mL IV Push (Completed) 2 g Once 10/18/2025 10/18/2025 Admin Instructions: Give 24 hours after pre-op dose. ADMINISTER IV PUSH. Infuse over 5 minutes. Draw up 20 mL Sodium Chloride 0.9% into empty syringe. Inject 20 mL into vial of Ceftriaxone. Shake well. Withdraw volume into syringe and administer immediately. Route: Intravenous Linked Group 1: Placed in And Linked Group A/P: Perioperative antibiotics: - Ampicillin, ceftriaxone for 48 hours Immunosuppression: - Steroid taper - Cellcept 500 mg BID - Tacro initiated NEUROLOGIC Exam: alert, oriented, no focal signs, moving all four extremities, Eye Openin, Best Verbal Response: 5,Best Motor Response: 6 [place] Coma Scale Score: 15 No data found. A/P: Analgesia/Sedation - IV robaxin scheduled - PRN dilaudid (not needed overnight) PSYCHIATRIC Exam: appropriate affect, responds, not agitated Cody Agitation Sedation Scale: 0 Overall CAM-ICU : No Delirium A/P: - No acute intervention ICU CHECKLIST DVT PPx: Primary wants to hold ppx until platelets > 30 Current Anticoagulation (Only) heparin (porcine) injection 5,000 Units ([Held by provider] since 10/18/2025 11:47 PM) GI PPx: Protonix Lines: Patient Lines/Drains/Airways Status Active Epidural Line / PICC Line / PIV Line / ART Line / Line / CVC Line Name Placement date Placement time Site Days Peripheral IV 10/17/25 Left Antecubital 10/17/25 1015 Antecubital 1 Peripheral IV Left Forearm -- -- Forearm -- Peripheral IV Right Hand -- -- Hand -- Peripheral IV Left Antecubital -- -- Antecubital -- Arterial Line 10/17/25 Right Radial 10/17/25 1415 Radial 1 Introducer 10/17/25 10/17/25 1436 -- 1 Remove MAC today Can consider removing a-line when stable on insulin regimen Luiz iniguez PT/OT: pending. PT Recs: OT Recs: ASSISTANT PROFESSOR OF PHILOSOPHY Recs: Dispo: Remain in SICU EVELYN GALINDO MD 10/19/2025 6:51 AM [1] Allergies Allergen Reactions Lisinopril Other (See Comments) Cosigned by Christine Dexter MD at 10/19/2025 1:56 PM EST Associated attestation - Christine Dexter MD - 10/19/2025 1:56 PM EST ICU ATTENDING PROGRESS NOTE: I have examined David Serrano, reviewed the events of the previous 24 hours, reviewed, confirmed and amended the resident's data, history and physical exam as needed. The case has been discussed with the Transplant team. I note the following in my assessment and will implement this plan of coordinated critical care management as follows: This patient was seen by the SICU resident team, nurses, pharmacist, and respiratory therapist. I have personally seen, examined, and discussed this patient with the critical care team on 10/19/2025. My assessment is noted below, and the multidisciplinary recommendations have been discussed with theTransplant team. David Serrano is a 65 year old man admitted to SICU on 10/17 after OLTx. He has a history of ESLD secondary to alcohol and metabolic dysfunction. Has a history of nonbleeding varices (never banded) ascites and hepatic encephalopathy. Pre-op MELD 20. Intra-operative course notable for [id number] ascites. EBL 11L, received 03/19//, 2.4L cell-saver, 8.5L crystalloid. Needed 40 lasix intra-op for elevated filling pressures. Arrives to SICU intubated on 2 pressors. Other PMHx notable for hypertension, pulmonary shunt, HfpEF, and PV thrombus, morbid obesity (BMI 35) Hospital Course: 10/17: OLTx 24H Events: - pressors stopped - insulin drip requirements down, intermittently off - NG removed by primary on rounds HEENT: No Acute Issues RESPIRATORY: Acute respiratory failure requiring intubation P:F: - passed SBT: 7.34/48/84/25 CXR reviewed - ETT well-positioned, no significant effusion or PTX - extubated on rounds to nasal cannula - cough/ deep breathe/ IS/ volume expansion CARDIOVASCULAR: HFpEF TTE May 2025: Normal LV size and function, EF 60-65%, grade II diastolic dysfunction, no RWMA, normal RV size andfunction Shock, unspecified - distributive and hemorrhagic - pressors now OFF - MAP goal > 65 Hypertension, essential benign - not currently a problem - holding home carvedilol, will need beta leatha once BP improved to avoid rebound tachycardia and/or arrhythmia NUTRITION: No acute issues - sips and chips GASTROINTESTINAL: ESLD - s/p OLTX - surgical drains - serosanguinous - per primary - NG removed today by transplant Transaminitis - completed NAC - LFTs downtrending nicely - duplex pending GERD - continue PPI FLUIDS / ELECTROLYTES: Hypokalemia Hypocalcemia - replace Normosol @ 75 cc/h RENAL: No acute issues Cr stable at 1.16 - monitor UOP Intake/Output Summary (Last 24 hours) at 10/19/2025 1355 Last data filed at 10/19/2025 1100 Gross per 24 hour Intake 2384.49 ml Output 1875 ml Net 509.49 ml SKIN/MUSCULOSKELETAL: No acute issues HEMATOLOGIC: Acute Blood Loss Anemia - has not needed transfusion post-op - trend CBC - transfusion threshold Hb < 7 or suspected significant bleeding with hypotension Thrombocytopenia, unspecified - consumptive and due to liver disease - will not treat in the absence of bleeding Coagulopathy due to hemorrhage and liver dysfunction - trend INR - will not treat in the absence of bleeding ENDOCRINE: Hyperglycemia HbA1c 4.0 - stop insulin drip, start HD SSI INFECTIOUS DISEASE: Will complete perioperative antibiotics Transplant Immunosuppression - steroid taper, MMF - starting tacro today per primary Transplant Prophylaxis - not yet started NEUROLOGIC: No acute issues PSYCHIATRIC, PAIN, SEDATION: Pain Management Sedation - propofol and fentanyl - plan multimodal pain control once extubated - avoid tylenol for now given need for NAC INJURY / DISEASE SPECIFIC NEEDS: No acute issues ACTIVE LINES; Patient Lines/Drains/Airways Status Active Epidural Line / PICC Line / PIV Line / ART Line / Line / CVC Line Name Placement date Placement time Site Days Peripheral IV 10/17/25 Left Antecubital 10/17/25 1015 Antecubital 2 Peripheral IV Left Forearm -- -- Forearm -- Peripheral IV Right Hand -- -- Hand -- Peripheral IV Left Antecubital -- -- Antecubital -- Arterial Line 10/17/25 Right Radial 10/17/25 1415 Radial 1 Introducer 10/17/25 10/17/25 1436 -- 1 Central Line? Yes - Reason: Hemodynamic monitoring and Medications requiring central administration- keep - dc MC line Arterial Line? Yes - keep until we are convinced we will stay off insulin drip ACTIVE /DRAINS: Urinary Catheter? Iniguez - Reason: Adequate I/O - dc iniguez DVT Prophylaxis: Subcutaneous Heparin and SCDs - hold while platelets < 30 GI Prophylaxis: PPI DISPOSITION: Remain in ICU Total critical care time spent caring for this patient over the past 24 hours, including direct patient contact, management of life support systems, review of data (i.e.: imaging and lab), discussionwith team members, and excluding time spent on procedures: 34 minutes CHRISTINE DEXTER MD Attending Surgeon Division of Trauma, Surgical Critical Care, and Acute Care Surgery * Duarte El MD - 10/18/2025 7:22 AM EST Surgical ICU Consult Note / Progress Note Patient: David Serrano 10/18/2025 7:22 AM HPI: David Serrano is a 65 y.o. 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 OR Course (10/17/25): - Procedure: - liver transplant and left renal vein ligation - IVF: 8.5 L crystalloid - Blood Products: 5 reds; 5 FFPl 3 platelets; 3 cryo; Cell Saver 2400 mL, 550 mL Albumin - Vasopressors: Levo 4; vaso 0.03 - EBL: 11L - UOP: 1900 mL (40 IV lasix given intra-op for elevated filling pressures) - Other: 2L ascites Home medications: Calcitriol 0.25 mcg Carvedilol 3.125 mg BID Ergocalciferol 50,000 units/week Furosemide 40 mg daily Omeprazole 40 mg daily? Spironolactone 150 mg daily Xifaxan 550 mg BID 24 hour events: - Post-op admission to the SICU Past Medical History: Diagnosis Date Epididymitis Hemochromatosis Hypertension Kidney stone Metabolic dysfunction-associated steatotic liver disease and increased alcohol intake (MetALD) Portal vein thrombosis UTI (urinary tract infection) Past Surgical History: Procedure Laterality Date HERNIA REPAIR Home Medications Medication Sig Taking? Last Dose calcitRIOL (ROCALTROL) 0.25 MCG capsule Take 1 capsule (0.25 mcg total) by mouth. Take 1 capsule bymouth 5 times a week. Once daily Wednesday through Wednesday Yes 10/16/2025 ergocalciferol (ERGOCALCIFEROL) 1,250 mcg (50,000 unit) capsule Take 1 capsule (50,000 Units total)by mouth once a week. Yes 10/16/2025 furosemide (LASIX) 20 MG tablet Take 2 tablets (40 mg total) by mouth daily. Yes 10/16/2025 omeprazole (PRILOSEC) 20 MG capsule Take 2 capsules (40 mg total) by mouth daily. Yes 10/17/2025 Morning spironolactone (ALDACTONE) 50 MG tablet Take 3 tablets (150 mg total) by mouth daily. Yes 10/16/2025 XIFAXAN 550 mg Tab tablet Take 1 tablet (550 mg total) by mouth 2 times a day. Yes 10/16/2025 Allergies[1] Social History Tobacco Use Smoking status: Never Smokeless tobacco: Former Substance Use Topics Alcohol use: Not Currently Comment: Sober since February 2023 No family history on file. REVIEW OF SYSTEMS: Review of Systems conducted with patient and pertinent positives are noted in HPI. CONSTITUTIONAL Exam: intubated, sedated, in no acute distress Temp (24hrs), Av.9 ??F (36.6 ??C), Min:97.1 ??F (36.2 ??C), Max:98.6 ??F (37 ??C) A/P: - No active issues HEENT Exam: normocephalic, atraumatic, pupils equal, round, and reactive A/P: - No active issues RESPIRATORY Exam: intubated and mechanically ventilated; settings noted below Vent Settings Patient Vitals for the past 5 hrs: Vent Mode PIP Observed PEEP/CPAP Delta Pressure Support (cm H2O) 10/18/25 0531 Spont PS/PEEP 9.4 cm H2O 5 cm H20 5 cm H2O 10/18/25 0437 Spont PEEP 15 cm H2O 5 cm H20 0 cm H2O Vent Mode: Spont PS/PEEP FiO2: [39 %-100 %] 40 % S RR: [16] 16 S VT: [400 mL] 400 mL Spont TV: [0 mL-876 mL] 876 mL Inspiratory Time Set: [0.9 sec] 0.9 sec PIP: [2 cm H2O-32 cm H2O] 9.4 cm H2O Delta Pressure Support (cm H2O): [0 cm H2O-10 cm H2O] 5 cm H2O PEEP/CPAP: [0 cm H20-7 cm H20] 5 cm H20 O2 Device: Patient Vitals for the past 5 hrs: FiO2 10/18/25 0700 40 % 10/18/25 0657 41 % 10/18/25 0630 39 % 10/18/25 0600 40 % 10/18/25 0531 40 % 10/18/25 0530 40 % 10/18/25 0500 39 % 10/18/25 0437 40 % 10/18/25 0430 40 % 10/18/25 0400 40 % 10/18/25 0330 40 % 10/18/25 0300 40 % 10/18/25 0230 40 % ABG: Lab 10/18/25 0519 10/17/25 2250 PH ARTERIAL 7.34* 7.38 PCO2 ARTERIAL 48* 41 PO2 ARTERIAL 84 216* HCO3 ARTERIAL 25 24 BASE EXCESS ARTERIAL -0.2 -0.8 O2 SATURATION ARTERIAL 97 100 PF ratio: 210 Pearson body weight: Pearson body weight: 63.8 kg (140 lb 10.5 oz) Adjusted ideal body weight: 78.2 kg (172 lb 6.3 oz) A/P: #Acute Hypoxic Respiratory Failure - Intubated, sedated - Goal SpO2: >92% - Goal TV: 6-8 cc/kg - Daily CXR - Wean FiO2 and PEEP as tolerated - Passed SBT - Extubate after pausing sedation #Moderate Intrapulmonary Shunt (identified on prior echo) - Room air at baseline - No acute intervention CARDIOVASCULAR Exam: Regular rate and rhythm Echo: Echo 06/13/25 ([facility]): Left Ventricle: The left ventricle is normal [...] the degree of transpulmonary shunt is increased. Hemodynamics: Patient Vitals for the past 4 hrs: CVP (mmHg) PCWP (mmHg) CO (L/min) CI (L/min/m2) PAP SV (mL) 10/18/25 0700 9 mmHg -- -- -- -- 10/18/25 0657 9 mmHg 11 mmHg 6.61 L/min 3.18 L/min/m2 06/11 101.7 mL 10/18/25 0630 10 mmHg -- -- -- -- 10/18/25 0600 8 mmHg -- -- -- 06/11 -- 10/18/25 0530 8 mmHg -- -- -- -- 10/18/25 0500 8 mmHg -- -- -- -- 10/18/25 0430 8 mmHg -- -- -- -- 10/18/25 0400 8 mmHg -- -- -- -- 10/18/25 0330 10 mmHg -- -- -- -- Vitals: Temp: [97.1 ??F (36.2 ??C)-98.6 ??F (37 ??C)] 97.7 ??F (36.5 ??C) Heart Rate: [61-83] 65 Resp: [0-19] 8 BP: (97-123)/(58-78) 101/65 Arterial Line BP: (91-115)/(46-58) 93/46 FiO2: [39 %-100 %] 40 % A/P: Shock, perioperative vasoplegia - Goal MAP >65 - Vasopressors: levo off; vaso 0.03--stop now - Wean pressors as tolerated Moderate diastolic dysfunction HTN Home medications: Carvedilol 3.125 mg BID, Spironolactone 150 mg, furosemide 20 mg BID (also for ascites) - Hold in perioperative period GASTROINTESTINAL Exam: soft, nondistended, appropriately tender to palpation, surgical dressings in place with minimal strike-through. GABBIE drains SS. 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 FLUIDS/ELECTROLYTES Admit Weight: Weight: 220 lb (99.8 kg) Last Weight: Weight: 220 lb (99.8 kg) Labs: Recent Labs 10/17/25 1018 10/17/25 2250 10/18/25 0502 NA 141 145 146 K 3.3* 3.7 3.4* CL 110 110 111* CO2 29 27 26 CALCIUM 8.1* 8.2* 7.8* MG 1.7 1.8 2.0 PHOS 2.8 3.9 3.0 ALBUMIN 2.3* 2.3* 2.2* 2.2* 2.2* 2.2* I&Os Intake/Output Summary (Last 24 hours) at 10/18/2025 0722 Last data filed at 10/18/2025 0700 Gross per 24 hour Intake 31340.44 ml Output 89772 ml Net 472.44 ml IVF: acetylcysteine (ACETADOTE) 200 mg/mL (20 %) 10 g in sodium chloride 0.45% (1/2 NS) 1,000 mL infusion, Last Rate: 10 g (10/18/25515) fentanyl (SUBLIMAZE) IV infusion, Last Rate: 75 mcg/hr (10/17/252257) insulin regular in 0.9 % sodium chloride, Last Rate: 9 Units/hr (10/18/25700) norepinephrine, Last Rate: Stopped (10/18/25529) propofol, Last Rate: 7.5 mcg/kg/min (10/18/25718) vasopressin, Last Rate: 0.03 Units/min (10/18/25701) A/P: Fluids: Start normosol at 75/hr #Electrolyte derangements - Manual replacements - Q6 labs post op - K replaced RENAL Labs: Recent Labs 10/17/25 1018 10/17/25224910/18/25 0502 NA 141 145 146 BUN 13 17 22 CREATININE 0.81 0.79 0.93 Urine lytes: No results for input(s): NAUR in the last 72 hours. Invalid input(s): CRUR Baseline Cr: 0.9. Urine output: N/A mL/24 hours A/P: - Trend labs per protocol - No acute intervention SKIN/MUSCULOSKELETAL Exam: normal ROM, no rashes A/P: No active issues. HEMATOLOGIC Labs: Lab 10/18/25 0502 10/17/25 2250 10/17/25 2125 10/17/25 2022 10/17/25 1926 10/17/25 1839 10/17/25 1700 10/17/25 1656 10/17/25 1559 10/17/25 1455 HEMATOCRIT 27.6* 27.5* -- -- -- 30.2* -- 26.1* -- 28.6* HCTPOC -- -- 26.0* 28.0* 25.0* -- < > -- < > -- HEMOGLOBIN 9.6* 9.5* -- -- -- 10.3* -- 9.2* -- 10.0* HGBPOC -- -- 9.0* 9.5* 8.6* -- < > -- < > -- PLATELETS 36* 52* -- -- -- 47* -- 64* -- 53* < > = values in this interval not displayed. Lab 10/18/25 0502 10/17/25 2250 10/17/25212310/17/25202010/17/25 1925 INR POC -- -- 2.3* 2.9* 5.9* INR 2.2* 2.1* -- -- -- Lab 10/17/25 2250 10/17/25 20310/17/25 1839 10/17/25 1656 10/17/25 1455 FIBRINOGEN LEVEL 253 157* 159* 137* 85* A/P: #Acute blood loss anemia #Chronic anemia - q6 CBC - Transfuse for Hgb < 7 Coagulopathy - Teg based resuscitation - Will transfuse if concerns for ongoing bleeding - Spot check TEG as needed ENDOCRINE FSBS range: Lab 10/18/25 0659 10/18/25 0606 10/18/25 0502 10/18/25 0500 10/18/25 0405 10/18/25 0302 10/18/25 0205 10/18/25 0106 10/17/25 2355 10/17/25 2250 10/17/25 2247 10/17/25212410/17/25202110/17/25 1926 10/17/25 1823 10/17/25 1742 10/17/25 1700 10/17/25 1559 10/17/25 1454 10/17/25 1018 POC GLU MONITORING DEVICE 187* 214* -- 231* 244* 246* 249* 237* 227* -- < > -- -- -- -- -- -- -- -- -- POCGLUART -- -- -- -- -- -- -- -- -- -- -- 227* 218* 207* 170* 77 96 81 74 -- GLUCOSE -- -- 193* -- -- -- -- -- -- 225* -- -- -- -- -- -- -- -- -- 81 < > = values in this interval not displayed. Lab Results Component Value Date HGBA1C 4.0 10/17/2025 A/P: #Stress induced hyperglycemia Home regimen: None - Insulin gtt in perioperative period (currently at 9 from 16) - Will assess requirements before transitioning to long-acting INFECTIOUS DISEASE Urine cultures Lab Results Component Value Date COLORU Yellow 09/24/2025 CLARITYU Cloudy (A) 09/24/2025 PROTEINUA 30 (A) 09/24/2025 PHUR 6.0 09/24/2025 LABSPEC 1.019 09/24/2025 GLUCOSEU Negative 09/24/2025 BLOODU Large (A) 09/24/2025 LEUKOCYTESUR Large (A) 09/24/2025 NITRITE Negative 09/24/2025 BILIRUBINUR Negative 09/24/2025 UROBILINOGEN <2.0 09/24/2025 RBCUA 61 (H) 09/24/2025 WBCUA >100 (H) 09/24/2025 BACTERIA Rare (A) 09/24/2025 Blood cultures Lab Results Component Value Date LABGRAM Rare Polymorphonuclear Leukocytes Seen 10/17/2025 LABGRAM No Organisms Seen; 10/17/2025 Labs Lab 10/18/25 0502 10/17/25 2250 10/17/25 1839 10/17/25 1656 10/17/25 1455 WBC 7.0 5.8 4.8 3.9 4.4 Current abx Current Anti-Infectives Dose Frequency Start End AMPicillin 1 g in sodium chloride 0.9% 100 mL IVPB ([id number]) 1 g Every 6 hours 10/17/2025 10/19/2025 Admin Instructions: Dosage may need to be adjusted for renal dysfunction. Full dose is 1g IV q6h Use [id number] Adapter - Mix Thoroughly Before Administration Notes to Pharmacy: On patient transport orderly estimated creatinine clearance is 101.9 mL/min (based on SCr of 0.81 mg/dL). Route: Intravenous Linked Group 1: Placed in And Linked Group AMPicillin 2 g in sodium chloride 0.9% 100 mL IVPB ([id number]) (Completed) 2 g Once 10/17/2025 10/17/2025 Admin Instructions: Begin infusion 20-60 minutes prior to incision Use [id number] Adapter - Mix Thoroughly Before Administration Notes to Pharmacy: On patient transport orderly estimated creatinine clearance is 98.3 mL/min (based on SCr of 0.84 mg/dL). Route: Intravenous Linked Group 2: Placed in And Linked Group cefTRIAXone (ROCEPHIN) 2 g in sodium chloride 0.9% 20 mL IV Push (Completed) 2 g Once 10/17/2025 10/17/2025 Admin Instructions: Begin infusion 20-60 minutes prior to incision ADMINISTER IV PUSH. Infuse over 5 minutes. Draw up 20 mL Sodium Chloride 0.9% into empty syringe. Inject 20 mL into vial of Ceftriaxone. Shake well. Withdraw volume into syringe and administer immediately. Route: Intravenous Linked Group 2: Placed in And Linked Group cefTRIAXone (ROCEPHIN) 2 g in sodium chloride 0.9% 20 mL IV Push 2 g Once 10/18/2025 10/19/2025 Admin Instructions: Give 24 hours after pre-op dose. ADMINISTER IV PUSH. Infuse over 5 minutes. Draw up 20 mL Sodium Chloride 0.9% into empty syringe. Inject 20 mL into vial of Ceftriaxone. Shake well. Withdraw volume into syringe and administer immediately. Route: Intravenous Linked Group 1: Placed in And Linked Group A/P: Perioperative antibiotics: - Ampicillin, ceftriaxone for 48 hours Immunosuppression: - Steroid taper - Cellcept 500 mg BID - Further agents per primary team NEUROLOGIC Exam: alert, oriented, no focal signs, moving all four extremities, Eye Openin, Best Verbal Response: 1,Best Motor Response: 6 [place] Coma Scale Score: 10 No data found. A/P: Analgesia/Sedation - Propofol - Fentanyl - Transition to IV robaxin, PRN dilaudid PSYCHIATRIC Exam: appropriate affect, responds, not agitated Cody Agitation Sedation Scale: -2 A/P: - No acute intervention ICU CHECKLIST Activity/AMPAK Score: DVT PPx: Current Anticoagulation (Only) heparin (porcine) injection 5,000 Units ([Held by provider] since 10/18/2025 6:07 AM) GI PPx: H2 leatha (home medication). Lines: Patient Lines/Drains/Airways Status Active Epidural Line / PICC Line / PIV Line / ART Line / Line / CVC Line Name Placement date Placement time Site Days Peripheral IV 10/17/25 Left Antecubital 10/17/25 1015 Antecubital less than 1 Peripheral IV Left Forearm -- -- Forearm -- Peripheral IV Right Hand -- -- Hand -- Peripheral IV Left Antecubital -- -- Antecubital -- Arterial Line 10/17/25 Right Radial 10/17/25 1415 Radial less than 1 Introducer 10/17/25 10/17/25 1436 -- less than 1 PT/OT: pending. PT Recs: OT Recs: ASSISTANT PROFESSOR OF PHILOSOPHY Recs: Dispo: Remain in SICU. DUARTE EL MD 10/18/2025 7:22 AM [1] Allergies Allergen Reactions Lisinopril Other (See Comments) Cosigned by Christine Dexter MD at 10/18/2025 3:50 PM EST Associated attestation - Christine Dexter MD - 10/18/2025 3:50 PM EST ICU ATTENDING PROGRESS NOTE: I have examined David Serrano, reviewed the events of the previous 24 hours, reviewed, confirmed and amended the resident's data, history and physical exam as needed. The case has been discussed with the Transplant team. I note the following in my assessment and will implement this plan of coordinated critical care management as follows: This patient was seen by the SICU resident team, nurses, pharmacist, and respiratory therapist. I have personally seen, examined, and discussed this patient with the critical care team on 10/18/2025. My assessment is noted below, and the multidisciplinary recommendations have been discussed with theTransplant team. David Serrano is a 65 year old man admitted to SICU on 10/17 after OLTx. He has a history of ESLD secondary to alcohol and metabolic dysfunction. Has a history of nonbleeding varices (never banded) ascites and hepatic encephalopathy. Pre-op MELD 20. Intra-operative course notable for [id number] ascites. EBL 11L, received ///, 2.4L cell-saver, 8.5L crystalloid. Needed 40 lasix intra-op for elevated filling pressures. Arrives to SICU intubated on 2 pressors. Other PMHx notable for hypertension, pulmonary shunt, HfpEF, and PV thrombus, morbid obesity (BMI 35) Hospital Course: 10/17: OLTx 24H Events: - as above - levo weaned to OFF around 5 am - passed SBT this morning HEENT: No Acute Issues RESPIRATORY: Acute respiratory failure requiring intubation P:F: Vent Mode: Spont PS/PEEP FiO2: [39 %-100 %] 40 % S RR: [16] 16 S VT: [400 mL] 400 mL PEEP/CPAP: [0 cm H20-7 cm H20] 5 cm H20 - passed SBT: 7.34/48/84/25 CXR reviewed - ETT well-positioned, no significant effusion or PTX - extubated on rounds to nasal cannula - cough/ deep breathe/ IS/ volume expansion CARDIOVASCULAR: HFpEF TTE May 2025: Normal LV size and function, EF 60-65%, grade II diastolic dysfunction, no RWMA, normal RV size andfunction Shock, unspecified - distributive and hemorrhagic - levo off, on vaso - will stop as able - MAP goal > 65 Hypertension, essential benign - not currently a problem - holding home carvedilol, will need beta leatha once BP improved to avoid rebound tachycardia and/or arrhythmia NUTRITION: No acute issues - NPO GASTROINTESTINAL: ESLD - s/p OLTX - surgical drains - serosanguinous - per primary Transaminitis - NAC infusion - trend LFTs - duplex pending GERD - continue PPI FLUIDS / ELECTROLYTES: Hypokalemia Hypocalcemia - replace Normosol @ 75 cc/h RENAL: No acute issues Cr wnl - monitor UOP Intake/Output Summary (Last 24 hours) at 10/18/2025 0808 Last data filed at 10/18/2025 0758 Gross per 24 hour Intake 52650.34 ml Output 39351 ml Net 484.34 ml SKIN/MUSCULOSKELETAL: No acute issues HEMATOLOGIC: Acute Blood Loss Anemia - has not needed transfusion post-op - trend CBC q6h - transfusion threshold Hb < 7 or suspected significant bleeding with hypotension Thrombocytopenia, unspecified - consumptive and due to liver disease - will not treat in the absence of bleeding Coagulopathy due to hemorrhage and liver dysfunction - trend INR - will not treat in the absence of bleeding ENDOCRINE: Hyperglycemia HbA1c 4.0 - on insulin drip currently 9u/h - keep drip today INFECTIOUS DISEASE: Will complete perioperative antibiotics Transplant Immunosuppression - steroid taper, MMF - tacrolimus not yet started Transplant Prophylaxis - not yet started NEUROLOGIC: No acute issues PSYCHIATRIC, PAIN, SEDATION: Pain Management Sedation - propofol and fentanyl - plan multimodal pain control once extubated - avoid tylenol for now given need for NAC INJURY / DISEASE SPECIFIC NEEDS: No acute issues ACTIVE LINES; Patient Lines/Drains/Airways Status Active Epidural Line / PICC Line / PIV Line / ART Line / Line / CVC Line Name Placement date Placement time Site Days Peripheral IV 10/17/25 Left Antecubital 10/17/25 1015 Antecubital less than 1 Peripheral IV Left Forearm -- -- Forearm -- Peripheral IV Right Hand -- -- Hand -- Peripheral IV Left Antecubital -- -- Antecubital -- Arterial Line 10/17/25 Right Radial 10/17/25 1415 Radial less than 1 Introducer 10/17/25 10/17/25 1436 -- less than 1 Central Line? Yes - Reason: Hemodynamic monitoring and Medications requiring central administration- keep ACTIVE /DRAINS: Urinary Catheter? Iniguez - Reason: Adequate I/O DVT Prophylaxis: Subcutaneous Heparin and SCDs GI Prophylaxis: PPI DISPOSITION: Remain in ICU Total critical care time spent caring for this patient over the past 24 hours, including direct patient contact, management of life support systems, review of data (i.e.: imaging and lab), discussionwith team members, and excluding time spent on procedures: 35 minutes CHRISTINE DEXTER MD Attending Surgeon Division of Trauma, Surgical Critical Care, and Acute Care Surgery * Oskar Alyssa Arango, RD - 10/18/2025 7:15 AM ESTAssociated Order(s): IP CONSULT TO NUTRITION SERVICES TXP - Initial [facility] Medical Nutrition Therapy Reason(s) for Completion: Physician/Nursing Referral - Liver TXP post-op admission Recommendations/Nutrition Interventions: Monitor PO Intake/Tolerance and Education/Counseling: Food Safety Diet + ONS as medically able Malnutrition Status: at risk for malnutrition Context: chronic illness Dietary Intake/History: Current Diet: Diet/Nutrition Orders Diet NPO Frequency: Effective Now Number of Occurrences: Until Specified PO Meal Intake: Pt currently not taking any PO Meeting Estimated Nutrition Needs This Admission: No Estimated Nutrition Needs (needs based on DBW of 70.4 kg) Kcals/day: 8452-6928 (25-30 kcal/kg) Protein g/day: 105-140 (1.5-2.0 g/kg) Carbohydrate g/day: 45-60 gm/meal Fluid ml/day: ~1mL/kcal or per MD *Needs based on clinical status at this time and subject to change. Anthropometrics: Height: Ht Readings from Last 1 Encounters: 10/17/25 5' 6 (1.676 m) Current Weight: Wt Readings from Last 1 Encounters: 10/17/25 220 lb (99.8 kg) BMI: Body mass index is 35.51 kg/m??. BMI Classification: Class 2 (35.00 - 39.99) BMI Desirable Weight: 155 lbs - based on BMI 25 kg/m^2 Usual Body Weight: 220 Weight History: Wt Readings from Last 10 Encounters: 10/17/25 220 lb (99.8 kg) 09/24/25 222 lb (100.7 kg) 09/10/25 217 lb 6.4 oz (98.6 kg) Pertinent Information: David Serrano is a 65 y.o. 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 Pt seen for initial nutrition evaluation. Known to me from pre txp eval. Reported poor appetite at that time. Will follow-up with diet education prior to d/c. Following daily with txp team. Glucose: 187-249 x 24 hours. I/O: +472 mL net volume. Pertinent Labs: Recent Labs 10/17/25 1839 10/17/25 1926 10/17/25 2125 10/17/25 2250 10/18/25 0502 WBC 4.8 -- -- 5.8 7.0 HGB 10.3* < > 9.0* 9.5* 9.6* HCT 30.2* < > 26.0* 27.5* 27.6* PLT 47* -- -- 52* 36* < > = values in this interval not displayed. Recent Labs 10/17/25 1018 10/17/25 2250 10/18/25 0502 NA 141 145 146 K 3.3* 3.7 3.4* CL 110 110 111* CO2 29 27 26 BUN 13 17 22 CREATININE 0.81 0.79 0.93 GLUCOSE 81 225* 193* CALCIUM 8.1* 8.2* 7.8* MG 1.7 1.8 2.0 PHOS 2.8 3.9 3.0 Recent Labs 10/17/25 1018 10/17/25 2250 10/18/25 0502 AST 39 3,332* 2,612* ALT 27 1141* 1072* BILITOT 4.9* 4.5* 1.5 BILIDIRECT 1.35* 3.22* 0.77* ALKPHOS 143* 63 50 ALBUMIN 2.3* 2.3* 2.2* 2.2* 2.2* 2.2* Recent Labs 10/17/25 1839 10/17/25 1925 10/17/25 2124 10/17/25 2250 10/18/25 0502 INR 7.5* < > 2.3* 2.1* 2.2* PROTIME 69.5* -- -- 25.2* 26.0* < > = values in this interval not displayed. Recent Labs 10/17/25 1018 HGBA1C 4.0 Temp (24hrs), Av.9 ??F (36.6 ??C), Min:97.1 ??F (36.2 ??C), Max:98.6 ??F (37 ??C) Vent Mode: Spont PS/PEEP FiO2: [39 %-100 %] 40 % S RR: [16] 16 S VT: [400 mL] 400 mL PEEP/CPAP: [0 cm H20-7 cm H20] 5 cm H20 Past Medical History: Diagnosis Date Epididymitis Hemochromatosis Hypertension Kidney stone Metabolic dysfunction-associated steatotic liver disease and increased alcohol intake (MetALD) Portal vein thrombosis UTI (urinary tract infection) Past Surgical History: Procedure Laterality Date HERNIA REPAIR Scheduled Meds: cefTRIAXone (ROCEPHIN) IVPB 2 g Intravenous Once And AMPicillin IVPB 1 g Intravenous Q6H famotidine (PF) 20 mg Intravenous 2 times per day [Held by provider] heparin 5,000 Units Subcutaneous 3 times per day methylprednisolone 250 mg Intravenous Once Followed by [START ON 10/19/2025] methylPREDNISolone sod suc(PF) 125 mg Intravenous Once Followed by [START ON 10/20/2025] methylPREDNISolone sod suc(PF) 60 mg Intravenous Once Followed by [START ON 10/21/2025] methylPREDNISolone sod suc(PF) 50 mg Intravenous Once Followed by [START ON 10/22/2025] predniSONE 40 mg Oral Once Followed by [START ON 10/23/2025] predniSONE 30 mg Oral Once Followed by [START ON 10/24/2025] predniSONE 25 mg Oral Once Followed by [START ON 10/25/2025] predniSONE 20 mg Oral Daily 0900 mycophenolate (CELLCEPT) IVPB 500 mg Intravenous BID Pharmacy to Discontinue all previous insulin and antidiabetic medications MISCELLANEOUS Once potassium chloride (KCl) 20 mEq Intravenous Q1HRS Continuous Infusions: acetylcysteine (ACETADOTE) 200 mg/mL (20 %) 10 g in sodium chloride 0.45% (1/2 NS) 1,000 mL infusion 10 g (10/18/25 0516) fentanyl (SUBLIMAZE) IV infusion 75 mcg/hr (10/17/25 2258) insulin regular in 0.9 % sodium chloride 9 Units/hr (10/18/25 0701) norepinephrine Stopped (10/18/25 0530) propofol 10 mcg/kg/min (10/18/25 0309) vasopressin 0.03 Units/min (10/18/25 0702) PRN Meds:fentanyl (SUBLIMAZE) IV infusion AND fentaNYL Potential Nutrition Related Factors: Skin Integrity: Surgical wound;Sky Scale Score: 15 GI: No GI symptoms currently, tolerating current nutrition regimen Abdomen Inspection: Soft, Rounded, Surgical Scar Bowel Sounds (All Quadrants): Hypoactive Palpation/Percussion: Soft Allergies: Allergies[1] Cultural Requests: No Edema: RLE Edema: Moderate pitting, indentation subsides rapidly LLE Edema: Moderate pitting, indentation subsides rapidly Chewing/Swallowing Issues: No Nutrition Diagnosis Problem: Increased kcal/protein needs Related To: Increased demand for nutrients As Evidenced By: Recent liver transplant, medically complex Nutrition Diagnosis Problem: Food- and nutrition-related knowledge deficit Related to: Exposure to new information As evidenced by: Recent liver transplant and subsequent need for medical nutrition therapy education Coordination of Nutrition Care: This information has been communicated to the transplant multidisciplinary team Follow up: per policy while inpatient. If patient is discharged, dietitian will be available for consultation on an as needed basis as identified by the multidisciplinary team. Nutrition Monitoring and Evaluation: Goals: Total energy intake improved as evidenced by PO intake at least 75% of meals/supplements/snacks within 1-3 days and Voices/demonstrates knowledge of Food Safety education/counseling Patient will consume greater than or equal to 75% of meals for 3 consecutive days and Patient will consume 2 oral nutrition supplements/day during admission Goal Progress: Ongoing Indicators to Monitor: % of meals consumed (documented by nursing or patient report), Number of oral nutrition supplements consumed per day, Patient-reported appetite (poor, fair, good), GI tolerance: residuals, nausea, vomiting, diarrhea, constipation, abdominal distention, Medication side effectsimpacting appetite/intake, and Frequency and consistency of stools (diarrhea/constipation) Discharge Planning/Nutrition Transition of Care Plan: Discharge plan of care for nutrition ongoing pending clinical course Joey Arango RD, LD Clinical Dietitian - Solid Organ Transplant Contact via [employer] Chat [1] Allergies Allergen Reactions Lisinopril Other (See Comments) * Jose Matthews MD - 10/17/2025 11:39 PM EST Surgical ICU Consult Note / Progress Note Patient: David Serrano 10/17/2025 11:46 PM HPI: David Serrano is a 65 y.o. 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 OR Course (10/17/25): - Procedure: - liver transplant and left renal vein ligation - IVF: 8.5 L crystalloid - Blood Products: 5 reds; 5 FFPl 3 platelets; 3 cryo; Cell Saver 2400 mL, 550 mL Albumin - Vasopressors: Levo 4; vaso 0.03 - EBL: 11L - UOP: 1900 mL (40 IV lasix given intra-op for elevated filling pressures) - Other: 2L ascites Home medications: Calcitriol 0.25 mcg Carvedilol 3.125 mg BID Ergocalciferol 50,000 units/week Furosemide 40 mg daily Omeprazole 40 mg daily? Spironolactone 150 mg daily Xifaxan 550 mg BID 24 hour events: - Post-op admission to the SICU Past Medical History: Diagnosis Date Epididymitis Hemochromatosis Hypertension Kidney stone Metabolic dysfunction-associated steatotic liver disease and increased alcohol intake (MetALD) Portal vein thrombosis UTI (urinary tract infection) Past Surgical History: Procedure Laterality Date HERNIA REPAIR Home Medications Medication Sig Taking? Last Dose calcitRIOL (ROCALTROL) 0.25 MCG capsule Take 1 capsule (0.25 mcg total) by mouth. Take 1 capsule bymouth 5 times a week. Once daily Wednesday through Wednesday Yes 10/16/2025 ergocalciferol (ERGOCALCIFEROL) 1,250 mcg (50,000 unit) capsule Take 1 capsule (50,000 Units total)by mouth once a week. Yes 10/16/2025 furosemide (LASIX) 20 MG tablet Take 2 tablets (40 mg total) by mouth daily. Yes 10/16/2025 omeprazole (PRILOSEC) 20 MG capsule Take 2 capsules (40 mg total) by mouth daily. Yes 10/17/2025 Morning spironolactone (ALDACTONE) 50 MG tablet Take 3 tablets (150 mg total) by mouth daily. Yes 10/16/2025 XIFAXAN 550 mg Tab tablet Take 1 tablet (550 mg total) by mouth 2 times a day. Yes 10/16/2025 Allergies[1] Social History Tobacco Use Smoking status: Never Smokeless tobacco: Former Substance Use Topics Alcohol use: Not Currently Comment: Sober since February 2023 No family history on file. REVIEW OF SYSTEMS: Review of Systems conducted with patient and pertinent positives are noted in HPI. CONSTITUTIONAL Exam: intubated, sedated, in no acute distress Temp (24hrs), Av.9 ??F (36.6 ??C), Min:97.1 ??F (36.2 ??C), Max:98.6 ??F (37 ??C) A/P: - No active issues HEENT Exam: normocephalic, atraumatic, pupils equal, round, and reactive A/P: - No active issues RESPIRATORY Exam: intubated and mechanically ventilated; settings noted below Vent Settings Patient Vitals for the past 5 hrs: Vent Mode Resp Rate (Set) Vt (Set, mL) PIP Observed PEEP/CPAP Delta Pressure Support (cm H2O) 10/17/258 VC-SIMV/PRVC 16 400 mL 16 cm H2O 5 cm H20 10 cm H2O Vent Mode: VC-SIMV/PRVC FiO2: [49 %-100 %] 80 % S RR: [16] 16 S VT: [400 mL] 400 mL Spont TV: [180 mL] 180 mL Inspiratory Time Set: [0.9 sec] 0.9 sec PIP: [2 cm H2O-32 cm H2O] 16 cm H2O Delta Pressure Support (cm H2O): [10 cm H2O] 10 cm H2O PEEP/CPAP: [0 cm H20-7 cm H20] 5 cm H20 O2 Device: Patient Vitals for the past 5 hrs: FiO2 10/17/25 2315 80 % 10/17/25 2300 80 % 10/17/25 2240 100 % 10/17/25 2238 100 % ABG: Lab 10/17/25 2250 PH ARTERIAL 7.38 PCO2 ARTERIAL 41 PO2 ARTERIAL 216* HCO3 ARTERIAL 24 BASE EXCESS ARTERIAL -0.8 O2 SATURATION ARTERIAL 100 PF ratio: 270 Pearson body weight: Pearson body weight: 63.8 kg (140 lb 10.5 oz) Adjusted ideal body weight: 78.2 kg (172 lb 6.3 oz) A/P: #Acute Hypoxic Respiratory Failure - Intubated, sedated - Goal SpO2: >92% - Goal TV: 6-8 cc/kg - Daily CXR - Wean FiO2 and PEEP as tolerated - Daily SBT #Moderate Intrapulmonary Shunt (identified on prior echo) - Room air at baseline - No acute intervention CARDIOVASCULAR Exam: Regular rate and rhythm Echo: Echo 06/13/25 ([facility]): Left Ventricle: The left ventricle is normal [...] the degree of transpulmonary shunt is increased. Hemodynamics: Patient Vitals for the past 4 hrs: CVP (mmHg) PAP 10/17/25 2315 4 mmHg 14/1010/17/25 2300 7 mmHg 10/17/25 2240 5 mmHg 11/11 Vitals: Temp: [97.1 ??F (36.2 ??C)-98.6 ??F (37 ??C)] 98.6 ??F (37 ??C) Heart Rate: [61-83] 77 Resp: [16-19] 18 BP: (117-123)/(71-78) 117/72 Arterial Line BP: (110-115)/(53-58) 115/56 FiO2: [49 %-100 %] 80 % A/P: Shock, perioperative vasoplegia - Goal MAP >65 - Vasopressors: levo 4; vaso 0.03 - Wean pressors as tolerated Moderate diastolic dysfunction HTN Home medications: Carvedilol 3.125 mg BID, Spironolactone 150 mg, furosemide 20 mg BID (also for ascites) - Hold in perioperative period GASTROINTESTINAL Exam: soft, nondistended, appropriately tender to palpation, surgical dressings in place with minimal strike-through. GABBIE drains SS. 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 FLUIDS/ELECTROLYTES Admit Weight: Weight: 220 lb (99.8 kg) Last Weight: Weight: 220 lb (99.8 kg) Labs: Recent Labs 10/17/25 1018 NA 141 K 3.3* CL 110 CO2 29 CALCIUM 8.1* MG 1.7 PHOS 2.8 ALBUMIN 2.3* 2.3* I&Os Intake/Output Summary (Last 24 hours) at 10/17/2025 2346 Last data filed at 10/17/2025 2300 Gross per 24 hour Intake 30386.34 ml Output 29441 ml Net 840.34 ml IVF: fentanyl (SUBLIMAZE) IV infusion, Last Rate: 75 mcg/hr (10/17/252257) insulin regular in 0.9 % sodium chloride, Last Rate: 4 Units/hr (10/17/252256) norepinephrine, Last Rate: 4 mcg/min (10/17/252255) propofol, Last Rate: 20 mcg/kg/min (10/17/252254) sodium chloride 0.9 % vasopressin, Last Rate: 0.03 Units/min (10/17/252253) A/P: #Electrolyte derangements - Manual replacements - Q6 labs post op - Mag and K replaced RENAL Labs: Recent Labs 10/17/25 1018 NA 141 BUN 13 CREATININE 0.81 Urine lytes: No results for input(s): NAUR in the last 72 hours. Invalid input(s): CRUR Baseline Cr: 0.9. Urine output: N/A mL/24 hours A/P: - Trend labs per protocol - No acute intervention SKIN/MUSCULOSKELETAL Exam: normal ROM, no rashes A/P: No active issues. HEMATOLOGIC Labs: Lab 10/17/25224910/17/25212410/17/25202110/17/251926 10/03/25 18310/17/25 17010/17/25 16510/17/25 1559 10/17/25 1455 10/17/25 1454 10/17/25 1018 HEMATOCRIT 27.5* -- -- -- 30.2* -- 26.1* -- 28.6* -- 32.9* HCTPOC -- 26.0* 28.0* 25.0* -- < > -- < > -- < > -- HEMOGLOBIN 9.5* -- -- -- 10.3* -- 9.2* -- 10.0* -- 11.2* HGBPOC -- 9.0* 9.5* 8.6* -- < > -- < > -- < > -- PLATELETS 52* -- -- -- 47* -- 64* -- 53* -- 61* < > = values in this interval not displayed. Lab 10/17/25224910/17/25183810/17/25 16510/17/25 1455 10/17/25 1018 INR 2.1* 7.5* 2.3* 2.3* 1.8* Lab 10/17/25224910/17/25203010/17/25 18310/17/25 16510/17/25 1455 FIBRINOGEN LEVEL 253 157* 159* 137* 85* A/P: #Acute blood loss anemia #Chronic anemia - q6 CBC - Transfuse for Hgb < 7 Coagulopathy - Teg based resuscitation - Will transfuse if concerns for ongoing bleeding - Spot check TEG as needed ENDOCRINE FSBS range: Lab 10/17/257 10/17/25212410/17/25202110/17/25192510/17/25 1823 10/17/25 1742 10/17/25 1700 10/17/25 1559 10/17/25 1454 10/17/25 1018 POC GLU MONITORING DEVICE 234* -- -- -- -- -- -- -- -- -- POCGLUART -- 227* 218* 207* 170* 77 96 81 74 -- GLUCOSE -- -- -- -- -- -- -- -- -- 81 Lab Results Component Value Date HGBA1C 4.0 10/17/2025 A/P: #Stress induced hyperglycemia Home regimen: None - Insulin gtt in perioperative period - Will assess requirements before transitioning to long-acting INFECTIOUS DISEASE Urine cultures Lab Results Component Value Date COLORU Yellow 09/24/2025 CLARITYU Cloudy (A) 09/24/2025 PROTEINUA 30 (A) 09/24/2025 PHUR 6.0 09/24/2025 LABSPEC 1.019 09/24/2025 GLUCOSEU Negative 09/24/2025 BLOODU Large (A) 09/24/2025 LEUKOCYTESUR Large (A) 09/24/2025 NITRITE Negative 09/24/2025 BILIRUBINUR Negative 09/24/2025 UROBILINOGEN <2.0 09/24/2025 RBCUA 61 (H) 09/24/2025 WBCUA >100 (H) 09/24/2025 BACTERIA Rare (A) 09/24/2025 Blood cultures Lab Results Component Value Date LABGRAM Rare Polymorphonuclear Leukocytes Seen 10/17/2025 LABGRAM No Organisms Seen; 10/17/2025 Labs Lab 10/17/25 2250 10/17/25 1839 10/17/25 1656 10/17/25 1455 10/17/25 1018 WBC 5.8 4.8 3.9 4.4 4.1 Current abx Current Anti-Infectives Dose Frequency Start End AMPicillin 1 g in sodium chloride 0.9% 100 mL IVPB ([id number]) 1 g Every 6 hours 10/17/2025 10/19/2025 Admin Instructions: Dosage may need to be adjusted for renal dysfunction. Full dose is 1g IV q6h Use [id number] Adapter - Mix Thoroughly Before Administration Notes to Pharmacy: On patient transport orderly estimated creatinine clearance is 101.9 mL/min (based on SCr of 0.81 mg/dL). Route: Intravenous Linked Group 1: Placed in And Linked Group AMPicillin 2 g in sodium chloride 0.9% 100 mL IVPB ([id number]) (Completed) 2 g Once 10/17/2025 10/17/2025 Admin Instructions: Begin infusion 20-60 minutes prior to incision Use [id number] Adapter - Mix Thoroughly Before Administration Notes to Pharmacy: On patient transport orderly estimated creatinine clearance is 98.3 mL/min (based on SCr of 0.84 mg/dL). Route: Intravenous Linked Group 2: Placed in And Linked Group cefTRIAXone (ROCEPHIN) 2 g in sodium chloride 0.9% 20 mL IV Push (Completed) 2 g Once 10/17/2025 10/17/2025 Admin Instructions: Begin infusion 20-60 minutes prior to incision ADMINISTER IV PUSH. Infuse over 5 minutes. Draw up 20 mL Sodium Chloride 0.9% into empty syringe. Inject 20 mL into vial of Ceftriaxone. Shake well. Withdraw volume into syringe and administer immediately. Route: Intravenous Linked Group 2: Placed in And Linked Group cefTRIAXone (ROCEPHIN) 2 g in sodium chloride 0.9% 20 mL IV Push 2 g Once 10/18/2025 10/19/2025 Admin Instructions: Give 24 hours after pre-op dose. ADMINISTER IV PUSH. Infuse over 5 minutes. Draw up 20 mL Sodium Chloride 0.9% into empty syringe. Inject 20 mL into vial of Ceftriaxone. Shake well. Withdraw volume into syringe and administer immediately. Route: Intravenous Linked Group 1: Placed in And Linked Group A/P: Perioperative antibiotics: - Ampicillin, ceftriaxone for 48 hours Immunosuppression: - Steroid taper - Cellcept 500 mg BID - Further agents per primary team NEUROLOGIC Exam: alert, oriented, no focal signs, moving all four extremities, Eye Openin, Best Verbal Response: 5,Best Motor Response: 6 [place] Coma Scale Score: 15 No data found. A/P: Analgesia/Sedation - Propofol - Fentanyl PSYCHIATRIC Exam: appropriate affect, responds, not agitated Cody Agitation Sedation Scale: -2 A/P: - No acute intervention ICU CHECKLIST Activity/AMPAK Score: DVT PPx: Current Anticoagulation (Only) heparin (porcine) injection 5,000 Units GI PPx: H2 leatha (home medication). Lines: Patient Lines/Drains/Airways Status Active Epidural Line / PICC Line / PIV Line / ART Line / Line / CVC Line Name Placement date Placement time Site Days Peripheral IV 10/17/25 Left Antecubital 10/17/25 1015 Antecubital less than 1 Peripheral IV Left Forearm -- -- Forearm -- Peripheral IV Right Hand -- -- Hand -- Peripheral IV Left Antecubital -- -- Antecubital -- Arterial Line 10/17/25 Right Radial 10/17/25 1415 Radial less than 1 Introducer 10/17/25 10/17/25 1436 -- less than 1 PT/OT: pending. PT Recs: OT Recs: ASSISTANT PROFESSOR OF PHILOSOPHY Recs: Dispo: Remain in SICU. DUARTE EL MD 10/17/2025 11:46 PM ICU ATTENDING PROGRESS NOTE: I have examined David Serrano, reviewed the events of the previous 24 hours, reviewed, confirmed and amended the resident's data, history and physical exam as needed. The case has been discussed with the Transplant team. I note the following in my assessment and will implement this plan of coordinated critical care management as follows: This patient was seen by the SICU resident team, nurses, pharmacist, and respiratory therapist. I have personally seen, examined, and discussed this patient with the critical care team on 10/17/2025. My assessment is noted below, and the multidisciplinary recommendations have been discussed with theTransplant team. David Serrano remains in the ICU to address deficits in multiple systems. Each system was discussed on rounds and the details are listed in the resident note above. Adjustments to the note were made while rounds were performed to include changes agreed upon by the multidisciplinary team. My changes were added to the resident note. My assessment reveals: 65 year old male with ESLD secondary to ETOH. Has a history of ascites and hepatic encephalopathy. Cardic issues with pulmnary shunt and grade 2 diastolic disfunction. Meld prior to case was 20 OR course EBL Arrived to ICU Intubated On low dose pressors PMH sig for HTN Portal vein thrombus HEENT: No Acute Issues RESPIRATORY: Acute on chronic respiratory failure, hypoxic Atelectasis/pulmonary collapse Hypoxia P:F: FiO2: [49 %-100 %] 64 % PEEP/CPAP: [0 cm H20-7 cm H20] 5 cm H20 Wean fio2 Settings too high for sbt at this point Can attempt again in AM CARDIOVASCULAR: Shock, Hypovolemic Shock, Septic due to surgical procedure Wean levophed NUTRITION: No acute issues Maintain NPO for now Await bowel fuction GASTROINTESTINAL: S/p Liver txp Follow LFT's Follow INR Post op Liver Ultrasound pending FLUIDS / ELECTROLYTES: No acute issues RENAL: Acute kidney injury Follow cr Follow urine output SKIN/MUSCULOSKELETAL: RAFAEL HEMATOLOGIC: Acute post hemorrhagic anemia Coagulopathy, unspecified Thrombocytopenia, unspecified ENDOCRINE: Hyperglycemia Insulin coverage INFECTIOUS DISEASE: Immunosuppression and periop abx per primary NEUROLOGIC: History of encephalopathy Follow neuro exam PSYCHIATRIC, PAIN, SEDATION: Pain Management INJURY / DISEASE SPECIFIC NEEDS: No acute issues ACTIVE LINES; Patient Lines/Drains/Airways Status Active Epidural Line / PICC Line / PIV Line / ART Line / Line / CVC Line Name Placement date Placement time Site Days Peripheral IV 10/17/25 Left Antecubital 10/17/25 1015 Antecubital less than 1 Peripheral IV Left Forearm -- -- Forearm -- Peripheral IV Right Hand -- -- Hand -- Peripheral IV Left Antecubital -- -- Antecubital -- Arterial Line 10/17/25 Right Radial 10/17/25 1415 Radial less than 1 Introducer 10/17/25 10/17/25 1436 -- less than 1 Central Line? Yes - Reason: Hemodynamic monitoring and Medications requiring central administration ACTIVE /DRAINS: Urinary Catheter? Iniguez - Reason: Adequate I/O DVT Prophylaxis: Subcutaneous Heparin GI Prophylaxis: PPI DISPOSITION: Remain in ICU Total critical care time spent caring for this patient over the past 24 hours, including direct patient contact, management of life support systems, review of data (i.e.: imaging and lab), discussionwith team members, and excluding time spent on procedures: 34 minutes Jose Matthews MD 10/17/2025 2300 [1] Allergies Allergen Reactions Lisinopril Other (See Comments) documented in this encounter Nursing Notes * Charbel Ji RN - 10/22/2025 4:30 PM EST David Serrano has order to be discharged to home. All IV lines removed. Belongings returned andbelongings checklist signed. Discharge navigator complete including vaccination status and RequiredCore Measures. Discharge instructions reviewed. After Visit Summary printed, signed and copy given to pt/family. All questions answered. Discharge complete. CHARBEL JI RN documented in this encounter Miscellaneous Notes * Plan of Care - Charbel Ji RN - 10/22/2025 1:54 PM EST Problem: Safety Goal: Patient will be injury free during hospitalization Description: Assess and monitor vitals signs, neurological status including level of consciousness and orientation. Assess patient's risk for falls and implement fall prevention plan of care and interventions per hospital policy. Ensure arm band on, uncluttered walking paths in room, adequate room lighting, call light and overbed table within reach, bed in low position, wheels locked, side rails up per policy, and non-skid footwear provided. Outcome: Adequate for Discharge Goal: Patient with weight > 350lbs will have appropriate equipment Description: Consider ordering Bariatric Bed, Chair and Bedside Commode for patient weight > 350lbs. Outcome: Adequate for Discharge Problem: Safety Goal: Patient will be injury free during hospitalization Description: Assess and monitor vitals signs, neurological status including level of consciousness and orientation. Assess patient's risk for falls and implement fall prevention plan of care and interventions per hospital policy. Ensure arm band on, uncluttered walking paths in room, adequate room lighting, call light and overbed table within reach, bed in low position, wheels locked, side rails up per policy, and non-skid footwear provided. Outcome: Adequate for Discharge Goal: Patient with weight > 350lbs will have appropriate equipment Description: Consider ordering Bariatric Bed, Chair and Bedside Commode for patient weight > 350lbs. Outcome: Adequate for Discharge Problem: Patient will remain free of falls Goal: [place] Fall Precautions Outcome: Adequate for Discharge Problem: Daily Care Goal: Daily care needs are met Description: Assess and monitor ability to perform self care and identify potential discharge needs. Outcome: Adequate for Discharge Problem: Psychosocial Needs Goal: Demonstrates ability to cope with hospitalization/illness Description: Assess and monitor patients ability to cope with his/her illness. Outcome: Adequate for Discharge Goal: Collaborate with patient/family to identify patient's goals Outcome: Adequate for Discharge Problem: Acute Pain Description: Patient's pain progressing toward patient's stated pain goal Goal: Patient displays improved well-being such as baseline levels for pulse, BP, respirations and relaxed muscle tone or body posture Outcome: Adequate for Discharge Goal: Patient will manage pain with the appropriate technique/intervention Description: Assess and monitor patient's pain using appropriate pain scale. Collaborate with interdisciplinary team and initiate plan and interventions as ordered. Re-assess patient's pain level 30-60 minutes after pain management intervention. Outcome: Adequate for Discharge Problem: Non-violent, [id number] restraints Description: Less restrictive alternative interventions will be considered prior to application of restraint devices. Goal: Patient will be restrained only to maintain safety Description: Alternatives to restraints can include; moving the patient closer to the nurses station, video monitoring where available, medicating for pain, agitation or psychosis, psychosocial interventions, manipulation of environment, frequent toileting, diversional activities, bed alarms, having family members sit with patient, frequent reorientation, or repositioning. Outcome: Adequate for Discharge Problem: Non-violent restraint safety Goal: Patient will be free from injury during restraint period Description: Assess and monitor for unsafe behaviors that can include unintentional harm of self orothers, risk for joint dislocation related to post- operative status, risks for potential nutrition/hydration issues related to removing/tampering with medical equipment, protection of medical procedures, or protection of medical recruiter access. Outcome: Adequate for Discharge Problem: Knowledge Deficit Goal: Patient/family/caregiver demonstrates understanding of disease process, treatment plan, medications, and discharge instructions Description: Complete learning assessment and assess knowledge base. Outcome: Adequate for Discharge Problem: Potential for Compromised Skin Integrity Goal: Skin integrity is maintained or improved Description: Assess and monitor skin integrity. Identify patients at risk for skin breakdown on admission and per policy. Collaborate with interdisciplinary team and initiate plans and interventions as needed. Outcome: Adequate for Discharge Goal: Nutritional status is improving Description: Monitor and assess patient for malnutrition (ex- brittle hair, bruises, dry skin, [place] and conjunctiva, muscle wasting, smooth red tongue, and disorientation). Collaborate with interdisciplinary team and initiate plan and interventions as ordered. Monitor patient's weight and dietary intake as ordered or per policy. Utilize nutrition screening tool and intervene per policy. Determine patient's food preferences and provide high-protein, high- caloric foods as appropriate. Outcome: Adequate for Discharge Problem: Incontinence Goal: Perineal skin integrity is maintained or improved Description: Assess genitourinary system, perineal skin, labs (urinalysis), and history of incontinence to include past management, aggravating, and alleviating factors. Collaborate with interdisciplinary team and initiate plans and interventions as needed. Outcome: Adequate for Discharge Problem: High Fall Risk Precautions Goal: High Fall Risk Precautions Outcome: Adequate for Discharge * Home Health Care Note - LAISHA Hernandez - 10/22/2025 1:32 PM EST REFERRAL FOR HOME HEALTH SERVICES FORM Patient name: David Serrano Patient : 1960 Age: 65 y.o. Gender: male SSN: [id number] Address: [address] [place] [address] [place] [address] Phone number: [phone] Patient emergency contact: Extended Emergency Contact Information Primary Emergency Contact: Stacy Serrano Address: [address] [place], [place] [id number] [facility] Relation: Spouse Date of admission: 10/17/2025 Date of discharge: 10/22/2025 Attending provider: Lane Troy MD Primary care physician: PROVIDER NOT IN SYSTEM Code status: Full Code Allergies: Allergies[1] Insurance Information Insurance Information joiz/Pic[employer] Phone: -- Subscriber: David Serrano Subscriber#: [id number] Group#: [id number] Precert#: -- Authorization#: [id number] Effective Date: -- TRANSPLANT GLOBAL/TRANS[employer] Phone: -- Subscriber: David Serrano Subscriber#: [id number] Group#: -- Precert#: -- Authorization#: [id number] Effective Date: -- Diagnoses Present on Admission Primary Diagnosis: <principal problem not specified> Discharge Diagnosis : There are no hospital problems to display for this patient. Prognosis: good Rehabilitation potential: good Diet Diet/Nutrition Orders Diet Regular(7) Frequency: Effective Now Number of Occurrences: Until Specified Order Questions: Suicide/Behavior Risk Modification? No Dietary nutrition supplements Frequency: TID Number of Occurrences: Until Specified Order Questions: Select Supplement: Magic Cup-thickened frozen supplement Dietary nutrition supplements Frequency: TID Number of Occurrences: Until Specified Order Questions: Select Supplement: Gelatein Plus- clear thickened, gelatin high protein ([facility] only) Regular Diet Services Required Snf: vital signs, med management, lab draws Physical Therapy: Plan Treatment/Interventions: LE strengthening/ROM, Therapeutic Activity, Continued evaluation, Therapeutic Exercise, Endurance training, Stair Training, Neuromuscular Reeducation, Equipment eval/education, Gait training PT Frequency during hospitalization: minimum 3x/week Recommendation Recommendation: Home PT Equipment Recommended: Rolling walker Occupational Therapy: Plan Treatment Interventions: ADL retraining, Activity Tolerance training, Patient/Family training, Therapeutic Activity, Excercise, Compensatory technique education, Functional transfer training, Continued evaluation, Equipment eval/education OT Frequency during hospitalization: minimum 3x/week Recommendation Recommendation: Home OT Equipment Recommendations: Tub Transfer Bench Tub Transfer Bench Justification: Patient is at risk to fall in shower environment, Patient has decreased activity tolerance requiring use of seat during bathing tasks Weight bearing status: full Needs 24 hour supervision due to cognitive impairment: No Discharge Medications Medications: Medication List TAKE these medications, which are NEW Quantity/Refills acetaminophen 325 MG tablet Commonly known as: TYLENOL Take 3 tablets (975 mg total) by mouth every 8 hours. Quantity: 200 tablet Refills: 0 acyclovir 400 MG tablet Commonly known as: ZOVIRAX Take 2 tablets (800 mg total) by mouth 2 times a day. Quantity: 120 tablet Refills: 0 alcohol swabs Padm Use as instructed. Quantity: 200 each Refills: 2 blood-glucose meter Misc Use to test blood sugar four times a day. Quantity: 1 each Refills: 0 calcium-vitamin D 500 mg-5 mcg (200 unit) per tablet Commonly known as: calcium-vitamin D Take 1 tablet by mouth 2 times a day with meals. Quantity: 60 tablet Refills: 2 glucose blood test strip Generic drug: blood sugar diagnostic Use to test blood sugar four times a day. Quantity: 100 strip Refills: 11 insulin lispro 100 unit/mL Inpn Administer insulin with meals per sliding scale: Blood glucose 150-199 mg/dL =1units, Blood pednulq999-517 mg/dL =2 units, Blood glucose 250-299 mg/dL =3 units, Blood glucose 300-349 mg/dL =4 units,Blood glucose greater than 349 mg/dL = 5 units Quantity: 15 mL Refills: 2 lancets Misc Use to test blood sugar four times a day. Quantity: 100 each Refills: 11 methocarbamoL 500 MG tablet Commonly known as: ROBAXIN Take 1 tablet (500 mg total) by mouth 3 times a day. Quantity: 90 tablet Refills: 0 mycophenolate 250 mg capsule Commonly known as: CELLCEPT Take 2 capsules (500 mg total) by mouth 2 times a day. Quantity: 120 capsule Refills: 5 NIFEdipine 30 MG (OSM) 24 hr tablet Commonly known as: PROCARDIA-XL Take 1 tablet (30 mg total) by mouth daily. Quantity: 30 tablet Refills: 0 oxyCODONE 5 MG immediate release tablet Commonly known as: ROXICODONE Take 1 tablet (5 mg total) by mouth every 8 hours as needed for up to 3 days. Quantity: 9 tablet Refills: 0 pantoprazole 40 MG tablet Commonly known as: PROTONIX Take 1 tablet (40 mg total) by mouth every morning before breakfast. Quantity: 30 tablet Refills: 2 pen needle, diabetic 32 gauge x Ndle For use with insulin pen. Use as instructed. Quantity: 100 each Refills: 2 phosphorus 250 mg tablet Generic drug: sod phos di, mono-K phos mono Take 250 mg by mouth 2 times a day. Quantity: 14 tablet Refills: 0 polyethylene glycol 17 gram/dose powder Commonly known as: GLYCOLAX Mix 1 capful (17 g) in 8 ounces of fluid and drink by mouth daily as needed for constipation. Quantity: 238 g Refills: 0 potassium chloride 10 MEQ CR tablet Commonly known as: KLOR-CON Take 1 tablet (10 mEq total) by mouth daily. Quantity: 7 tablet Refills: 0 predniSONE 5 MG tablet Commonly known as: DELTASONE Take 6 tablets by mouth in the morning on 10/23, then take 5 tablets by mouth on 10/24, and then starting on 10/25, take 4 tablets daily Quantity: 123 tablet Refills: 2 senna-docusate 8.6-50 mg per tablet Commonly known as: sennosides-docusate sodium Take 1 tablet by mouth at bedtime as needed for constipation. Quantity: 30 tablet Refills: 0 sulfamethoxazole-trimethoprim 400-80 mg per tablet Commonly known as: BACTRIM Take 1 tablet by mouth daily. Quantity: 30 tablet Refills: 2 tacrolimus 1 MG capsule Commonly known as: PROGRAF Take 5 capsules (5 mg total) by mouth 2 times a day. Quantity: 600 capsule Refills: 5 TAKE these medication, which have CHANGED Quantity/Refills furosemide 40 MG tablet Commonly known as: LASIX Take 1 tablet (40 mg total) by mouth daily. What changed: medication strength Quantity: 7 tablet Refills: 0 STOP taking these medications calcitRIOL 0.25 MCG capsule Commonly known as: ROCALTROL ergocalciferol 1,250 mcg (50,000 unit) capsule Commonly known as: ERGOCALCIFEROL omeprazole 20 MG capsule Commonly known as: PRILOSEC spironolactone 50 MG tablet Commonly known as: ALDACTONE Xifaxan 550 mg Tab tablet Generic drug: rifAXIMin Where to Get Your Medications These medications were sent to [facility] [address] [place], [place] [id number] Hours: Wednesday - Wednesday: 8:00AM - 6:00PM acetaminophen 325 MG tablet acyclovir 400 MG tablet alcohol swabs Padm blood-glucose meter Mis calcium-vitamin D 500 mg-5 mcg (200 unit) per tablet furosemide 40 MG tablet glucose blood test strip insulin lispro 100 unit/mL Inpn lancets Misc methocarbamoL 500 MG tablet mycophenolate 250 mg capsule NIFEdipine 30 MG (OSM) 24 hr tablet oxyCODONE 5 MG immediate release tablet pantoprazole 40 MG tablet pen needle, diabetic 32 gauge x /32 Ndle phosphorus 250 mg tablet polyethylene glycol 17 gram/dose powder potassium chloride 10 MEQ CR tablet predniSONE 5 MG tablet senna-docusate 8.6-50 mg per tablet sulfamethoxazole-trimethoprim 400-80 mg per tablet tacrolimus 1 MG capsule Discharge Specific Orders Discharge specific orders: LAB DRAWS: Please collect CBC w/diff, renal function panel, hepatic function panel, and tacrolimus level (prior to am tacro dose) every / starting 10/29. Fax results to liver transplant clinic at [phone]. NURSE VISIT: Please check vitals and assess/monitor surgical incision every Mon/. Isolation Patient Isolation Status None to display Vitals Patient Vitals for the past 4 hrs: BP Temp Temp src Pulse Resp SpO2 10/22/25 1200 -- 98.3 ??F (36.8 ??C) Oral -- -- -- 10/22/25 1125 -- -- -- 85 18 95 % 10/22/25 1000 107/64 -- -- 87 16 96 % Equipment/Supplies Rolling Walker Tub transfer bench Ordering Physician: CHANDRIKA [VANI WINKLER MD] Physician Certification Further, I certify that my clinical findings support that this patient is homebound (i.e. absences from home require considerable and taxing effort and are for medical reasons or islam services or infrequently or short duration when for other reasons) due to deconditioning it would be a taxing effort to receive outpatient services. My signature below is to certify that this patient is under my care and that I, or nurse practitioner, or a physician assistant printer floor covering working with me, had a [id number] encounter with this is patient on: 10/22/2025 Follow-up Appointments and Post Hospital Discharge Physician Name Future Appointments Date Time Provider Department Center 10/30/2025 9:00 AM [facility] [address] [facility] [address] [facility] [address] Discharging Physician Signature and Credentials Discharging Physician: Electronically signed by LAISHA HERNANDEZ 10/22/2025, 1:32 PM Physician to follow up Information PCP: PROVIDER NOT IN SYSTEM PCP address: None PCP phone number: None PCP fax number: None Follow-up: [facility] and their phone / fax is: [phone] / [phone] 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 Chief and Credentials Provider/Company Name and Contact Number: Community Services at Discharge Community Services at Home post discharge: [facility] Name/Phone # post discharge: [facility] ([phone]) Home Health Services Types at Discharge: PT/OT/ASSISTANT PROFESSOR OF PHILOSOPHY, Snf (nursing home for lab draws.) 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 Chief Name and Telephone Number: Citlaly Zimmerman RN/CM [phone] [1] Allergies Allergen Reactions Lisinopril Other (See Comments) * Care Coordination - Jagdish Sanchez - 10/19/2025 1:55 PM EST [facility] was advised patient require hhc, tub transfer bench, and rolling walker for discharge. Per repisodic there are no hhc in patient's area. [facility] sent referrals using Medicare.gov, awaiting response. [facility] will follow. There are no accepting hhc due to patients area and insurance. Kamlesh Sanchez Customer Operations Intern Visual Merchandising Coordinator Care Management Services [phone] * Plan of Care - Evelyn Galindo MD - 10/19/2025 1:01 PM EST At the request of the SICU attending Dr. Christine Dexter MD the plan is to remove the HD catheter/MACfrom the patient. Prior to removal of the line, the patient was positioned flat into the bed, the bed in the trendelenburg position, the dressing removed, area cleaned with chlorhexidene, all sutures removed and accounted for, and while the patient was holding his breath, the line was removed and pressure was held for 15 minutes to ensure hemostasis prior to addition of new dressing. Vitals and neuro status was monitored during removal of the line and patient tolerated the removal any immediate complication. Evelyn Galindo, PGY-1 Surgical ICU * Care Coordination - Tamia Bush RN - 10/18/2025 3:55 PM EST [facility] Case Management/Social Work Department Progress Note Patient Information Patient Name: David Serrano Hospital day: 1 Inpatient/Observation: Inpatient Level of Care: Floor Admit date: 10/17/2025 Admission diagnosis: TRANSPLANT LIVER PMH: has a past medical history of Epididymitis, Hemochromatosis, Hypertension, Kidney stone, 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 PCP: PROVIDER NOT IN SYSTEM Home Pharmacy: [facility] - [place] Eng - [address] [place] [address] [facility] [address] [facility] [address] [facility] [address] [facility] [address] [facility] [address] [facility] [address] [facility] [address] Medical Insurance Coverage: Payor: NANCY / Plan: BLUE ACCESS / Product Type: PPO / Other Pertinent Information RNCM completed chart review. Patient is not medically ready for discharge at this time. Patient extubated this AM. Unable to complete CM assessment due to providers at bedside. No discharge needs have been identified. RNCM will continue to follow as needs may arise. Discharge Plan Anticipated discharge plan: TBD Anticipated discharge date: 10/22 CM/SW will continue to follow and remain available for discharge planning needs. TAMIA BUSH RN Cell [phone] * Plan of Care - Angela Tamez RN - 10/18/2025 7:50 AM EST Problem: Safety Goal: Patient will be injury free during hospitalization Description: Assess and monitor vitals signs, neurological status including level of consciousness and orientation. Assess patient's risk for falls and implement fall prevention plan of care and interventions per hospital policy. Ensure arm band on, uncluttered walking paths in room, adequate room lighting, call light and overbed table within reach, bed in low position, wheels locked, side rails up per policy, and non-skid footwear provided. Outcome: Progressing Goal: Patient with weight > 350lbs will have appropriate equipment Description: Consider ordering Bariatric Bed, Chair and Bedside Commode for patient weight > 350lbs. Outcome: Progressing Problem: Patient will remain free of falls Goal: [place] Fall Precautions Outcome: Progressing Problem: Daily Care Goal: Daily care needs are met Description: Assess and monitor ability to perform self care and identify potential discharge needs. Outcome: Progressing Problem: Psychosocial Needs Goal: Demonstrates ability to cope with hospitalization/illness Description: Assess and monitor patients ability to cope with his/her illness. Outcome: Progressing Goal: Collaborate with patient/family to identify patient's goals Outcome: Progressing Problem: Discharge Barriers Goal: Patient's discharge needs are met Description: Collaborate with interdisciplinary team and initiate plans and interventions as needed. Outcome: Progressing Problem: Acute Pain Description: Patient's pain progressing toward patient's stated pain goal Goal: Patient displays improved well-being such as baseline levels for pulse, BP, respirations and relaxed muscle tone or body posture Outcome: Progressing Goal: Patient will manage pain with the appropriate technique/intervention Description: Assess and monitor patient's pain using appropriate pain scale. Collaborate with interdisciplinary team and initiate plan and interventions as ordered. Re-assess patient's pain level 30-60 minutes after pain management intervention. Outcome: Progressing Problem: Non-violent, qdi-qqmw-[id number] restraints Description: Less restrictive alternative interventions will be considered prior to application of restraint devices. Goal: Patient will be restrained only to maintain safety Description: Alternatives to restraints can include; moving the patient closer to the nurses station, video monitoring where available, medicating for pain, agitation or psychosis, psychosocial interventions, manipulation of environment, frequent toileting, diversional activities, bed alarms, having family members sit with patient, frequent reorientation, or repositioning. Outcome: Progressing Problem: Non-violent restraint safety Goal: Patient will be free from injury during restraint period Description: Assess and monitor for unsafe behaviors that can include unintentional harm of self orothers, risk for joint dislocation related to post- operative status, risks for potential nutrition/hydration issues related to removing/tampering with medical equipment, protection of medical procedures, or protection of medical recruiter access. Outcome: Progressing Problem: Knowledge Deficit Goal: Patient/family/caregiver demonstrates understanding of disease process, treatment plan, medications, and discharge instructions Description: Complete learning assessment and assess knowledge base. Outcome: Progressing Problem: Potential for Compromised Skin Integrity Goal: Skin integrity is maintained or improved Description: Assess and monitor skin integrity. Identify patients at risk for skin breakdown on admission and per policy. Collaborate with interdisciplinary team and initiate plans and interventions as needed. Outcome: Progressing Goal: Nutritional status is improving Description: Monitor and assess patient for malnutrition (ex- brittle hair, bruises, dry skin, p[place] and conjunctiva, muscle wasting, smooth red tongue, and disorientation). Collaborate with interdisciplinary team and initiate plan and interventions as ordered. Monitor patient's weight and dietary intake as ordered or per policy. Utilize nutrition screening tool and intervene per policy. Determine patient's food preferences and provide high-protein, high- caloric foods as appropriate. Outcome: Progressing Problem: Incontinence Goal: Perineal skin integrity is maintained or improved Description: Assess genitourinary system, perineal skin, labs (urinalysis), and history of incontinence to include past management, aggravating, and alleviating factors. Collaborate with interdisciplinary team and initiate plans and interventions as needed. Outcome: Progressing Problem: High Fall Risk Precautions Goal: High Fall Risk Precautions Outcome: Progressing Patient in bilateral soft wrist restraints to maintain patient safety and protect medical devices. Will continue to monitor and reassess need for restraints. See restraint flowsheet for further documentation. * Plan of Care - Kira Masterson RN - 10/17/2025 11:09 PM EST Problem: Safety Goal: Patient will be injury free during hospitalization Description: Assess and monitor vitals signs, neurological status including level of consciousness and orientation. Assess patient's risk for falls and implement fall prevention plan of care and interventions per hospital policy. Ensure arm band on, uncluttered walking paths in room, adequate room lighting, call light and overbed table within reach, bed in low position, wheels locked, side rails up per policy, and non-skid footwear provided. Outcome: Progressing Goal: Patient with weight > 350lbs will have appropriate equipment Description: Consider ordering Bariatric Bed, Chair and Bedside Commode for patient weight > 350lbs. Outcome: Progressing Problem: Patient will remain free of falls Goal: [place] Fall Precautions Outcome: Progressing Problem: Daily Care Goal: Daily care needs are met Description: Assess and monitor ability to perform self care and identify potential discharge needs. Outcome: Progressing Problem: Psychosocial Needs Goal: Demonstrates ability to cope with hospitalization/illness Description: Assess and monitor patients ability to cope with his/her illness. Outcome: Progressing Goal: Collaborate with patient/family to identify patient's goals Outcome: Progressing Problem: Discharge Barriers Goal: Patient's discharge needs are met Description: Collaborate with interdisciplinary team and initiate plans and interventions as needed. Outcome: Progressing Problem: Acute Pain Description: Patient's pain progressing toward patient's stated pain goal Goal: Patient displays improved well-being such as baseline levels for pulse, BP, respirations and relaxed muscle tone or body posture Outcome: Progressing Goal: Patient will manage pain with the appropriate technique/intervention Description: Assess and monitor patient's pain using appropriate pain scale. Collaborate with interdisciplinary team and initiate plan and interventions as ordered. Re-assess patient's pain level 30-60 minutes after pain management intervention. Outcome: Progressing Problem: Non-violent, [id number] restraints Description: Less restrictive alternative interventions will be considered prior to application of restraint devices. Goal: Patient will be restrained only to maintain safety Description: Alternatives to restraints can include; moving the patient closer to the nurses station, video monitoring where available, medicating for pain, agitation or psychosis, psychosocial interventions, manipulation of environment, frequent toileting, diversional activities, bed alarms, having family members sit with patient, frequent reorientation, or repositioning. Outcome: Progressing Problem: Non-violent restraint safety Goal: Patient will be free from injury during restraint period Description: Assess and monitor for unsafe behaviors that can include unintentional harm of self orothers, risk for joint dislocation related to post- operative status, risks for potential nutrition/hydration issues related to removing/tampering with medical equipment, protection of medical procedures, or protection of medical recruiter access. Outcome: Progressing Patient in bilateral soft wrist restraints to maintain patient safety and protect medical devices. Will continue to monitor and reassess need for restraints. See restraint flowsheet for further documentation. documented in this encounter Plan of Treatment Pending Results Name Type Priority Associated Diagnoses Date /Time Monthly Serum - [facility] Routine 10/17/2025 10:18 AM EST Chimerism Engraftment Recip Pre TXP-[facility] Lab Routine 10:18 AM EST Fungus culture (Surgical Swab) Microbiology Routine 10/17/2025 2:50 PM EST Scheduled Orders Name Type Priority Associated Diagnoses Order Schedule Monthly Serum - [facility] STAT Once for 1 Occurrences starting 10/17/2025 until 10/17/2025 Chimerism Engraftment Recip Pre TXP[facility] STAT Once for 1 Occurrences starting 10/17/2025 until 10/17/2025 Surgical Pathology Exam Pathology and Cytology Routine Release Upon Ordering for 1 Occurrences starting 10/17/2025 documented as of this encounter Procedures Procedure Name Priority Date/Time Associated Diagnosis Comments US DUPLEX HAP-WOVPPV-UYPEYGR COMPLETE STAT 10/22/2025 10:24 AM EST US ABDOMEN LIMITED STAT 10/22/2025 10 :24 AM EST POC GLU MONITORING DEVICE Routine 10/22/2025 10:23 AM EST TACROLIMUS LEVEL Timed 10/22/2025 9:48 AM EST HEPATIC FUNCTION PANEL STAT 5:28 AM EST CBC STAT 10/22/2025 5:28 AM EST PHOSPHORUS STAT 10/22/2025 5:28 AM EST MAGNESIUM STAT 10/22/2025 5:28 AM EST BASIC METABOLIC PANEL STAT 10/22/2025 5:28 AM EST POC GLU MONITORING DEVICE Routine 10/21/2025 4:31 PM EST POC GLU MONITORING DEVICE Routine 10/21/2025 12:27 PM EST TACROLIMUS LEVEL Timed 10/21/2025 8:30 AM EST POC GLU MONITORING DEVICE Routine 10/21/2025 8:18 AM EST HEPATIC FUNCTION PANEL STAT 6:35 AM EST RENAL FUNCTION PANEL W/EGFR STAT 10/21/2025 6:35 AM EST CBC STAT 10/21/2025 6:35 AM EST MAGNESIUM STAT 10/21/2025 6:35 AM EST POC GLU MONITORING DEVICE Routine 10/20/2025 5:17 PM EST POC GLU MONITORING DEVICE Routine 10/20/2025 2:24 PM EST TACROLIMUS LEVEL Timed 10/20/2025 10:3 1 AM EST POC GLU MONITORING DEVICE Routine 10/20/2025 9:24 AM EST HEPATIC FUNCTION PANEL Routine 5:31 AM EST RENAL FUNCTION PANEL W/EGFR Routine 10/20/2025 5:31 AM EST CBC Routine 10/20/2025 5:31 AM EST MAGNESIUM Routine 10/20/2025 5:31 AM EST POC GLU MONITORING DEVICE Routine 10/20/2025 5:30 AM EST HEPATIC FUNCTION PANEL Routine 11:03 PM EST RENAL FUNCTION PANEL W/EGFR Routine 10/19/2025 11:03 PM EST PROTIME-INR Routine 10/19/2025 11:03 PM EST CBC Routine 10/19/2025 11:03 PM EST MAGNESIUM Routine 10/19/2025 11:03 PM EST POC GLU MONITORING DEVICE Routine 10/19/2025 11:02 PM EST POC GLU MONITORING DEVICE Routine 10/19/2025 5:24 PM EST POC GLU MONITORING DEVICE Routine 10/19/2025 12:26 PM EST POC GLU MONITORING DEVICE Routine 10/19/2025 9:51 AM EST HEPATIC FUNCTION PANEL Routine 8:29 AM EST RENAL FUNCTION PANEL W/EGFR Routine 10/19/2025 8:29 AM EST TACROLIMUS LEVEL Timed 10/19/2025 8:29 AM EST PROTIME-INR Routine 10/19/2025 8:29 AM EST CBC Routine 10/19/2025 8:29 AM EST MAGNESIUM Routine 10/19/2025 8:29 AM EST POC GLU MONITORING DEVICE Routine 10/19/2025 8:28 AM EST POC GLU MONITORING DEVICE Routine 10/19/2025 7:07 AM EST POC GLU MONITORING DEVICE Routine 10/19/2025 6:28 AM EST POC GLU MONITORING DEVICE Routine 10/19/2025 6:10 AM EST POC GLU MONITORING DEVICE Routine 10/19/2025 4:06 AM EST POC GLU MONITORING DEVICE Routine 10/19/2025 2:04 AM EST POC GLU MONITORING DEVICE Routine 10/18/2025 11:57 PM EST HEPATIC FUNCTION PANEL Routine 10:20 PM EST LACTIC ACID Routine 10/18/2025 10:20 PM EST RENAL FUNCTION PANEL W/EGFR Routine 10/18/2025 10:20 PM EST PROTIME-INR Routine 10/18/2025 10:20 PM EST CBC Routine 10/18/2025 10:20 PM EST MAGNESIUM Routine 10/18/2025 10:20 PM EST POC GLU MONITORING DEVICE Routine 10/18/2025 10:07 PM EST POC GLU MONITORING DEVICE Routine 10/18/2025 8:14 PM EST HEPATIC FUNCTION PANEL Routine 5:47 PM EST LACTIC ACID Routine 10/18/2025 5:47 PM EST RENAL FUNCTION PANEL W/EGFR Routine 10/18/2025 5:47 PM EST PROTIME-INR Routine 10/18/2025 5:47 PM EST CBC Routine 10/18/2025 5:47 PM EST MAGNESIUM Routine 10/18/2025 5:47 PM EST POC GLU MONITORING DEVICE Routine 10/18/2025 5:45 PM EST POC GLU MONITORING DEVICE Routine 10/18/2025 3:06 PM EST POC GLU MONITORING DEVICE Routine 10/18/2025 1:15 PM EST POC GLU MONITORING DEVICE Routine 10/18/2025 12:12 PM EST PREPARE FRESH FROZEN PLASMA Routine 10/18/2025 11:58 AM EST HEPATIC FUNCTION PANEL Routine 11:21 AM EST LACTIC ACID Routine 10/18/2025 11:21 AM EST RENAL FUNCTION PANEL W/EGFR Routine 10/18/2025 11:21 AM EST PROTIME-INR Routine 10/18/2025 11:21 AM EST CBC Routine 10/18/2025 11:21 AM EST MAGNESIUM Routine 10/18/2025 11:21 AM EST POC GLU MONITORING DEVICE Routine 10/18/2025 11:04 AM EST POC GLU MONITORING DEVICE Routine 10/18/2025 10:29 AM EST US DUPLEX XIA-VYHTAE-LUEURSC COMPLETE STAT 10/18/2025 9:35 AM EST US ABDOMEN LIMITED STAT 10/18/2025 9: 35 AM EST POC GLU MONITORING DEVICE Routine 10/18/2025 9:11 AM EST POC GLU MONITORING DEVICE Routine 10/18/2025 7:56 AM EST POC GLU MONITORING DEVICE Routine 10/18/2025 6:59 AM EST XR PORTABLE CHEST Routine 10/18/2025 6:3 7 AM EST PREPARE PLATELETS, LEUKOREDUCED Routine 10/18/2025 6:17 AM EST PREPARE PLATELETS, LEUKOREDUCED STAT 10/18/2025 6:17 AM EST PREPARE RBC, LEUKOREDUCED Routine 10/18/2025 6:16 AM EST PREPARE FRESH FROZEN PLASMA Routine 10/18/2025 6:15 AM EST PREPARE CRYOPRECIPITATE Routine 10/18/20 6:15 AM EST PREPARE CRYOPRECIPITATE Routine 10/18/20 6:15 AM EST PREPARE CRYOPRECIPITATE STAT 10/18/20 6:15 AM EST PREPARE CRYOPRECIPITATE STAT 10/18/20 6:15 AM EST PREPARE CRYOPRECIPITATE Routine 10/18/20 6:15 AM EST PREPARE RBC, LEUKOREDUCED Routine 10/18/2025 6:15 AM EST POC GLU MONITORING DEVICE Routine 10/18/2025 6:06 AM EST BLOOD GAS, ARTERIAL Routine 10/18/2025 5 :19 AM EST HEPATIC FUNCTION PANEL Routine 5:02 AM EST LACTIC ACID Routine 10/18/2025 5:02 AM EST RENAL FUNCTION PANEL W/EGFR Routine 10/18/2025 5:02 AM EST PROTIME-INR Routine 10/18/2025 5:02 AM EST CBC Routine 10/18/2025 5:02 AM EST MAGNESIUM Routine 10/18/2025 5:02 AM EST POC GLU MONITORING DEVICE Routine 10/18/2025 5:00 AM EST POC GLU MONITORING DEVICE Routine 10/18/2025 4:05 AM EST POC GLU MONITORING DEVICE Routine 10/18/2025 3:02 AM EST POC GLU MONITORING DEVICE Routine 10/18/2025 2:05 AM EST POC GLU MONITORING DEVICE Routine 10/18/2025 1:06 AM EST POC GLU MONITORING DEVICE Routine 10/17/2025 11:55 PM EST XR PORTABLE FEEDING TUBE X-RAY Routine 10/17/2025 11:32 PM EST XR PORTABLE CHEST STAT 10/17/2025 11: 28 PM EST TEG-STANDARD GLOBAL HEMOSTASIS (RAPID TEG WITH HEPARIN EFFECT, CONTAINS A BASELINE) STAT 10/17/2025 10:50 PM EST HEPATIC FUNCTION PANEL STAT 10:50 PM EST LACTIC ACID STAT 10/17/2025 10:50 PM EST RENAL FUNCTION PANEL W/EGFR STAT 10/17/2025 10:50 PM EST CALCIUM FREE, SERUM Routine 10/17/2025 1 0:50 PM EST PROTIME-INR STAT 10/17/2025 10:50 PM EST FIBRINOGEN STAT 10/17/2025 10:50 PM EST CBC STAT 10/17/2025 10:50 PM EST MAGNESIUM STAT 10/17/2025 10:50 PM EST BLOOD GAS, ARTERIAL STAT 10/17/2025 1 0:50 PM EST POC GLU MONITORING DEVICE Routine 10/17/2025 10:47 PM EST POC LACTATE Routine 10/17/2025 9:25 PM EST POC TCO2 Routine 10/17/2025 9:25 PM EST POC SODIUM Routine 10/17/2025 9:25 PM EST POC POTASSIUM Routine 10/17/2025 9:25 PM EST POC PO2 Routine 10/17/2025 9:25 PM EST POC PCO2 Routine 10/17/2025 9:25 PM EST POC O2 SAT Routine 10/17/2025 9:25 PM EST POC HCO3 Routine 10/17/2025 9:25 PM EST POC CHLORIDE Routine 10/17/2025 9:25 PM EST POC BASE EXCESS Routine 10/17/2025 9:25 PM EST POC ANION GAP Routine 10/17/2025 9:25 PM EST POC SAMPLE TYPE Routine 10/17/2025 9:25 PM EST POCT PH Routine 10/17/2025 9:25 PM EST POCT HEMATOCRIT Routine 10/17/2025 9:25 PM EST POCT CALCIUM, TOTAL Routine 10/17/2025 9 :25 PM EST POCT GLUCOSE Routine 10/17/2025 9:25 PM EST POCT HEMOGLOBIN Routine 10/17/2025 9:25 PM EST POCT INR Routine 10/17/2025 9:24 PM EST TRANSFUSE FRESH FROZEN PLASMA Routine 10/17/2025 9:15 PM EST TRANSFUSE PLATELETS Routine 10/17/2025 9 :01 PM EST TRANSFUSE CRYOPRECIPITATE Routine 10/17/2025 8:49 PM EST TRANSFUSE CRYOPRECIPITATE Routine 10/17/2025 8:45 PM EST TEG-BYPASS/ECMO/LIVER HN (FACTOR FUNCTION, PLATELET/FIBRIN CLOT STRENGTH W/CLOT BREAKDOWN, HEPARINASE IN ALL CHANNELS) STAT 10/17/2025 8:31 PM EST FIBRINOGEN STAT 10/17/2025 8:31 PM EST POC LACTATE Routine 10/17/2025 8:22 PM EST POC TCO2 Routine 10/17/2025 8:22 PM EST POC SODIUM Routine 10/17/2025 8:22 PM EST POC POTASSIUM Routine 10/17/2025 8:22 PM EST POC PO2 Routine 10/17/2025 8:22 PM EST POC PCO2 Routine 10/17/2025 8:22 PM EST POC O2 SAT Routine 10/17/2025 8:22 PM EST POC HCO3 Routine 10/17/2025 8:22 PM EST POC CHLORIDE Routine 10/17/2025 8:22 PM EST POC BASE EXCESS Routine 10/17/2025 8:22 PM EST POC ANION GAP Routine 10/17/2025 8:22 PM EST POC SAMPLE TYPE Routine 10/17/2025 8:22 PM EST POCT PH Routine 10/17/2025 8:22 PM EST POCT HEMATOCRIT Routine 10/17/2025 8:22 PM EST POCT CALCIUM, TOTAL Routine 10/17/2025 8 :22 PM EST POCT GLUCOSE Routine 10/17/2025 8:22 PM EST POCT HEMOGLOBIN Routine 10/17/2025 8:22 PM EST POCT INR Routine 10/17/2025 8:21 PM EST TRANSFUSE FRESH FROZEN PLASMA Routine 10/17/2025 8:05 PM EST TRANSFUSE FRESH FROZEN PLASMA Routine 10/17/2025 8:05 PM EST TRANSFUSE FRESH FROZEN PLASMA Routine 10/17/2025 7:39 PM EST TRANSFUSE FRESH FROZEN PLASMA Routine 10/17/2025 7:38 PM EST POC LACTATE Routine 10/17/2025 7:26 PM EST POC TCO2 Routine 10/17/2025 7:26 PM EST POC SODIUM Routine 10/17/2025 7:26 PM EST POC POTASSIUM Routine 10/17/2025 7:26 PM EST POC PO2 Routine 10/17/2025 7:26 PM EST POC PCO2 Routine 10/17/2025 7:26 PM EST POC O2 SAT Routine 10/17/2025 7:26 PM EST POC HCO3 Routine 10/17/2025 7:26 PM EST POC CHLORIDE Routine 10/17/2025 7:26 PM EST POC BASE EXCESS Routine 10/17/2025 7:26 PM EST POC ANION GAP Routine 10/17/2025 7:26 PM EST POC SAMPLE TYPE Routine 10/17/2025 7:26 PM EST POCT PH Routine 10/17/2025 7:26 PM EST POCT HEMATOCRIT Routine 10/17/2025 7:26 PM EST POCT CALCIUM, TOTAL Routine 10/17/2025 7 :26 PM EST POCT GLUCOSE Routine 10/17/2025 7:26 PM EST POCT HEMOGLOBIN Routine 10/17/2025 7:26 PM EST POCT INR Routine 10/17/2025 7:25 PM EST TRANSFUSE PLATELETS Routine 10/17/2025 7 :03 PM EST TEG-BYPASS/ECMO/LIVER HN (FACTOR FUNCTION, PLATELET/FIBRIN CLOT STRENGTH W/CLOT BREAKDOWN, HEPARINASE IN ALL CHANNELS) STAT 10/17/2025 6:39 PM EST PROTIME-INR STAT 10/17/2025 6:39 PM EST FIBRINOGEN STAT 10/17/2025 6:39 PM EST CBC STAT 10/17/2025 6:39 PM EST TRANSFUSE CRYOPRECIPITATE Routine 10/17/2025 6:31 PM EST POC LACTATE Routine 10/17/2025 6:23 PM EST POC TCO2 Routine 10/17/2025 6:23 PM EST POC SODIUM Routine 10/17/2025 6:23 PM EST POC POTASSIUM Routine 10/17/2025 6:23 PM EST POC PO2 Routine 10/17/2025 6:23 PM EST POC PCO2 Routine 10/17/2025 6:23 PM EST POC O2 SAT Routine 10/17/2025 6:23 PM EST POC HCO3 Routine 10/17/2025 6:23 PM EST POC CHLORIDE Routine 10/17/2025 6:23 PM EST POC BASE EXCESS Routine 10/17/2025 6:23 PM EST POC ANION GAP Routine 10/17/2025 6:23 PM EST POC SAMPLE TYPE Routine 10/17/2025 6:23 PM EST POCT PH Routine 10/17/2025 6:23 PM EST POCT HEMATOCRIT Routine 10/17/2025 6:23 PM EST POCT CALCIUM, TOTAL Routine 10/17/2025 6 :23 PM EST POCT GLUCOSE Routine 10/17/2025 6:23 PM EST POCT HEMOGLOBIN Routine 10/17/2025 6:23 PM EST POCT INR Routine 10/17/2025 6:21 PM EST TRANSFUSE CRYOPRECIPITATE Routine 10/17/2025 6:18 PM EST POC LACTATE Routine 10/17/2025 5:42 PM EST POC TCO2 Routine 10/17/2025 5:42 PM EST POC SODIUM Routine 10/17/2025 5:42 PM EST POC POTASSIUM Routine 10/17/2025 5:42 PM EST POC PO2 Routine 10/17/2025 5:42 PM EST POC PCO2 Routine 10/17/2025 5:42 PM EST POC O2 SAT Routine 10/17/2025 5:42 PM EST POC HCO3 Routine 10/17/2025 5:42 PM EST POC CHLORIDE Routine 10/17/2025 5:42 PM EST POC BASE EXCESS Routine 10/17/2025 5:42 PM EST POC ANION GAP Routine 10/17/2025 5:42 PM EST POC SAMPLE TYPE Routine 10/17/2025 5:42 PM EST POCT PH Routine 10/17/2025 5:42 PM EST POCT HEMATOCRIT Routine 10/17/2025 5:42 PM EST POCT CALCIUM, TOTAL Routine 10/17/2025 5 :42 PM EST POCT GLUCOSE Routine 10/17/2025 5:42 PM EST POCT HEMOGLOBIN Routine 10/17/2025 5:42 PM EST POCT INR Routine 10/17/2025 5:37 PM EST TRANSFUSE RED BLOOD CELLS Routine 10/17/2025 5:34 PM EST TRANSFUSE RED BLOOD CELLS Routine 10/17/2025 5:34 PM EST SURGICAL PATHOLOGY EXAM Routine 10/17/20 25 5:20 PM EST TRANSFUSE RED BLOOD CELLS Routine 10/17/2025 5:19 PM EST POC LACTATE Routine 10/17/2025 5:00 PM EST POC TCO2 Routine 10/17/2025 5:00 PM EST POC SODIUM Routine 10/17/2025 5:00 PM EST POC POTASSIUM Routine 10/17/2025 5:00 PM EST POC PO2 Routine 10/17/2025 5:00 PM EST POC PCO2 Routine 10/17/2025 5:00 PM EST POC O2 SAT Routine 10/17/2025 5:00 PM EST POC HCO3 Routine 10/17/2025 5:00 PM EST POC CHLORIDE Routine 10/17/2025 5:00 PM EST POC BASE EXCESS Routine 10/17/2025 5:00 PM EST POC ANION GAP Routine 10/17/2025 5:00 PM EST POC SAMPLE TYPE Routine 10/17/2025 5:00 PM EST POCT PH Routine 10/17/2025 5:00 PM EST POCT HEMATOCRIT Routine 10/17/2025 5:00 PM EST POCT CALCIUM, TOTAL Routine 10/17/2025 5 :00 PM EST POCT GLUCOSE Routine 10/17/2025 5:00 PM EST POCT HEMOGLOBIN Routine 10/17/2025 5:00 PM EST POCT INR Routine 10/17/2025 4:59 PM EST TEG-BYPASS/ECMO/LIVER HN (FACTOR FUNCTION, PLATELET/FIBRIN CLOT STRENGTH W/CLOT BREAKDOWN, HEPARINASE IN ALL CHANNELS) STAT 10/17/2025 4:56 PM EST APTT STAT 10/17/2025 4:56 PM EST PROTIME-INR STAT 10/17/2025 4:56 PM EST FIBRINOGEN STAT 10/17/2025 4:56 PM EST CBC STAT 10/17/2025 4:56 PM EST TRANSFUSE CRYOPRECIPITATE Routine 10/17/2025 4:17 PM EST TRANSFUSE CRYOPRECIPITATE STAT 10/17/2025 4:13 PM EST TRANSFUSE PLATELETS Routine 10/17/2025 4 :06 PM EST POC LACTATE Routine 10/17/2025 3:59 PM EST POC TCO2 Routine 10/17/2025 3:59 PM EST POC SODIUM Routine 10/17/2025 3:59 PM EST POC POTASSIUM Routine 10/17/2025 3:59 PM EST POC PO2 Routine 10/17/2025 3:59 PM EST POC PCO2 Routine 10/17/2025 3:59 PM EST POC O2 SAT Routine 10/17/2025 3:59 PM EST POC HCO3 Routine 10/17/2025 3:59 PM EST POC CHLORIDE Routine 10/17/2025 3:59 PM EST POC BASE EXCESS Routine 10/17/2025 3:59 PM EST POC ANION GAP Routine 10/17/2025 3:59 PM EST POC SAMPLE TYPE Routine 10/17/2025 3:59 PM EST POCT PH Routine 10/17/2025 3:59 PM EST POCT HEMATOCRIT Routine 10/17/2025 3:59 PM EST POCT CALCIUM, TOTAL Routine 10/17/2025 3 :59 PM EST POCT GLUCOSE Routine 10/17/2025 3:59 PM EST POCT HEMOGLOBIN Routine 10/17/2025 3:59 PM EST POCT INR Routine 10/17/2025 3:58 PM EST TRANSFUSE RED BLOOD CELLS Routine 10/17/2025 3:22 PM EST TRANSFUSE RED BLOOD CELLS Routine 10/17/2025 3:15 PM EST TEG-BYPASS/ECMO/LIVER HN (FACTOR FUNCTION, PLATELET/FIBRIN CLOT STRENGTH W/CLOT BREAKDOWN, HEPARINASE IN ALL CHANNELS) STAT 10/17/2025 2:55 PM EST PROTIME-INR STAT 10/17/2025 2:55 PM EST FIBRINOGEN STAT 10/17/2025 2:55 PM EST CBC STAT 10/17/2025 2:55 PM EST POC LACTATE Routine 10/17/2025 2:54 PM EST POC TCO2 Routine 10/17/2025 2:54 PM EST POC SODIUM Routine 10/17/2025 2:54 PM EST POC POTASSIUM Routine 10/17/2025 2:54 PM EST POC PO2 Routine 10/17/2025 2:54 PM EST POC PCO2 Routine 10/17/2025 2:54 PM EST POC O2 SAT Routine 10/17/2025 2:54 PM EST POC HCO3 Routine 10/17/2025 2:54 PM EST POC CHLORIDE Routine 10/17/2025 2:54 PM EST POC BASE EXCESS Routine 10/17/2025 2:54 PM EST POC ANION GAP Routine 10/17/2025 2:54 PM EST POC SAMPLE TYPE Routine 10/17/2025 2:54 PM EST POCT PH Routine 10/17/2025 2:54 PM EST POCT HEMATOCRIT Routine 10/17/2025 2:54 PM EST POCT CALCIUM, TOTAL Routine 10/17/2025 2 :54 PM EST POCT GLUCOSE Routine 10/17/2025 2:54 PM EST POCT HEMOGLOBIN Routine 10/17/2025 2:54 PM EST POCT INR Routine 10/17/2025 2:53 PM EST ROUTINE CULTURE PLUS STAIN Routine 10/17/2025 2:50 PM EST FUNGUS CULTURE Routine 10/17/2025 2:50 PM EST ANAEROBIC CULTURE Routine 10/17/2025 2:5 0 PM EST TRANSPLANT LIVER 10/17/2025 1:38 PM EST same TEG-STANDARD GLOBAL HEMOSTASIS (RAPID TEG WITH HEPARIN EFFECT, CONTAINS A BASELINE) Routine 10/17/2025 10:19 AM EST HEPATITIS C RNA, QUANTITATIVE REFLEX TO GENOTYPING Routine 10/17/2025 10:19 AM EST APTT Routine 10/17/2025 10:19 AM EST FIBRINOGEN Routine 10/17/2025 10:19 AM EST HEPATITIS A ANTIBODY TOTAL Routine 10/17/2025 10:18 AM EST VENOUS BLOOD GAS, LINE/SYRINGE STAT 10/17/2025 10:18 AM EST CMV IGG ANTIBODY Routine 10/17/2025 10:1 8 AM EST HEPATIC FUNCTION PANEL Routine 10:18 AM EST RENAL FUNCTION PANEL W/EGFR STAT 10/17/2025 10:18 AM EST HEPATITIS B CORE ANTIBODY Routine 10/17/2025 10:18 AM EST HEPATITIS C ANTIBODY Routine 10/17/2025 10:18 AM EST JOSE-MIMS VIRUS VCA IGG AB Routine 10/17/2025 10:18 AM EST ABO/RH Routine 10/17/2025 10:18 AM EST VITAMIN D 25 HYDROXY Routine 10/17/2025 10:18 AM EST DIFFERENTIAL Routine 10/17/2025 10:18 AM EST TOXOPLASMA GONDII ANTIBODY, IGG Routine 10/17/2025 10:18 AM EST HIV 1+2 ANTIBODY/ANTIGEN WITH REFLEX Routine 10/17/2025 10:18 AM EST HEPATITIS B SURFACE ANTIBODY, QUANTITATIVE Routine 10/17/2025 10:18 AM EST HEPATITIS B SURFACE ANTIGEN Routine 10/17/2025 10:18 AM EST PROTIME-INR Routine 10/17/2025 10:18 AM EST CBC Routine 10/17/2025 10:18 AM EST ANTIBODY SCREEN Routine 10/17/2025 10:18 AM EST MAGNESIUM STAT 10/17/2025 10:18 AM EST HEMOGLOBIN A1C Routine 10/17/2025 10:18 AM EST XR PORTABLE CHEST STAT 10/17/2025 10: 11 AM EST documented in this encounter Results * US Duplex [id number] Comp (10/22/2025 10:24 AM EST) Anatomical Region Laterality Modality Abdomen, Pelvis, Testes, Vascular Ultrasound 10/22/2025 9:06 AM EST Impressions 10/22/2025 12:02 PM EST IMPRESSION: ABDOMEN 1. Equivocal increased echogenicity of the liver allograft with trace perihepatic fluid. 2. Partially visualized right pleural effusion LIVER DOPPLER 1. Patent hepatic vasculature with antegrade flow. 2. Elevated velocity in the MPV, which can be seen in the early post-transplant setting. Approved by Abhishek Cosme MD on 10/22/2025 11:58 AM EST I have personally reviewed the images and I agree with this report. Report Verified by: Jamel Jaimes MD at 10/22/2025 12:02 PM EST Narrative 10/22/2025 12:02 PM EST EXAM: US ABDOMEN COMPLETE EXAM: US DUPLEX [id number] COMPLETE INDICATION: Post-op liver transplant DATE: 10/22/2025 9:06 AM EST COMPARISON: Ultrasound 10/18/2025 TECHNIQUE: Grayscale imaging was performed for evaluation of the liver, gallbladder, common bile duct, pancreas, spleen, and kidneys; color and spectral (duplex) Doppler analysis of the hepatic vasculature was also performed. FINDINGS: Liver: Normal morphology and surface contour of the liver allograft. Equivocal increased parenchymal echogenicity. No focal hepatic lesions. Trace perihepatic fluid. Biliary/CBD: 4 mm. No intra or extrahepatic ductal dilatation. Gallbladder: Surgically absent. Pancreas: Obscured by overlying bowel gas. Right kidney: 12.0 cm in length. Normal parenchymal echogenicity. No hydronephrosis. Other: Visualized portions of abdominal aorta are not aneurysmal. The retrohepatic IVC is color Doppler patent. Partially visualized right pleural effusion. DOPPLER: Hepatic Veins: Duplex evaluation of the hepatic vasculature demonstrates normal flow in the right, middle and left hepatic veins. Portal Veins: The right, left and main portal vein demonstrate hepatopetal flow. Elevated velocity in the MPV, measuring approximately 130 cm/s. Hepatic Arteries: Right, main and left hepatic arteries demonstrate normal waveforms. Resistive Indices Main hepatic artery: 0.65-0.79 Right hepatic artery: 0.67-0.75 Left hepatic artery: 0.69-0.70 Procedure Note Jamel Jaimes MD - 10/22/2025 EXAM: US ABDOMEN COMPLETE EXAM: US DUPLEX [id number] COMPLETE INDICATION: Post-op liver transplant DATE: 10/22/2025 9:06 AM EST COMPARISON: Ultrasound 10/18/2025 TECHNIQUE: Grayscale imaging was performed for evaluation of the liver,gallbladder, common bile duct, pancreas, spleen, and kidneys; color andspectral (duplex) Doppler analysis of the hepatic vasculature was alsoperformed. FINDINGS: Liver: Normal morphology and surface contour of the liver allograft.Equivocal increased parenchymal echogenicity. No focal hepatic lesions.Trace perihepatic fluid. Biliary/CBD: 4 mm. No intra or extrahepatic ductal dilatation. Gallbladder: Surgically absent. Pancreas: Obscured by overlying bowel gas. Right kidney: 12.0 cm in length. Normal parenchymal echogenicity. Nohydronephrosis. Other: Visualized portions of abdominal aorta are not aneurysmal. Theretrohepatic IVC is color Doppler patent. Partially visualized rightpleural effusion. DOPPLER: Hepatic Veins: Duplex evaluation of the hepatic vasculature demonstratesnormal flow in the right, middle and left hepatic veins. Portal Veins: The right, left and main portal vein demonstrate hepatopetalflow. Elevated velocity in the MPV, measuring approximately 130 cm/s. Hepatic Arteries: Right, main and left hepatic arteries demonstrate normalwaveforms. Resistive Indices Main hepatic artery: 0.65-0.79 Right hepatic artery: 0.67-0.75 Left hepatic artery: 0.69-0.70 IMPRESSION: ABDOMEN 1. Equivocal increased echogenicity of the liver allograft with traceperihepatic fluid. 2. Partially visualized right pleural effusion LIVER DOPPLER 1. Patent hepatic vasculature with antegrade flow. 2. Elevated velocity in the MPV, which can be seen in the earlypost-transplant setting. Approved by Abhishek Cosme MD on 10/22/2025 11:58 AM EST I have personally reviewed the images and I agree with this report. Report Verified by: Jamel Jaimes MD at 10/22/2025 12:02 PM EST us Leticia Lomeli MD IMG US ORDERABLES Final Resul t * US Abdomen Limited (10/22/2025 10:24 AM EST) Anatomical Region Laterality Modality Abdomen, Pelvis Ultrasound 10/22/2025 9:06 AM EST Impressions 10/22/2025 12:02 PM EST IMPRESSION: ABDOMEN 1. Equivocal increased echogenicity of the liver allograft with trace perihepatic fluid. 2. Partially visualized right pleural effusion LIVER DOPPLER 1. Patent hepatic vasculature with antegrade flow. 2. Elevated velocity in the MPV, which can be seen in the early post-transplant setting. Approved by Abhishek Cosme MD on 10/22/2025 11:58 AM EST I have personally reviewed the images and I agree with this report. Report Verified by: Jamel Jaimes MD at 10/22/2025 12:02 PM EST Narrative 10/22/2025 12:02 PM EST EXAM: US ABDOMEN COMPLETE EXAM: US DUPLEX [id number] COMPLETE INDICATION: Post-op liver transplant DATE: 10/22/2025 9:06 AM EST COMPARISON: Ultrasound 10/18/2025 TECHNIQUE: Grayscale imaging was performed for evaluation of the liver, gallbladder, common bile duct, pancreas, spleen, and kidneys; color and spectral (duplex) Doppler analysis of the hepatic vasculature was also performed. FINDINGS: Liver: Normal morphology and surface contour of the liver allograft. Equivocal increased parenchymal echogenicity. No focal hepatic lesions. Trace perihepatic fluid. Biliary/CBD: 4 mm. No intra or extrahepatic ductal dilatation. Gallbladder: Surgically absent. Pancreas: Obscured by overlying bowel gas. Right kidney: 12.0 cm in length. Normal parenchymal echogenicity. No hydronephrosis. Other: Visualized portions of abdominal aorta are not aneurysmal. The retrohepatic IVC is color Doppler patent. Partially visualized right pleural effusion. DOPPLER: Hepatic Veins: Duplex evaluation of the hepatic vasculature demonstrates normal flow in the right, middle and left hepatic veins. Portal Veins: The right, left and main portal vein demonstrate hepatopetal flow. Elevated velocity in the MPV, measuring approximately 130 cm/s. Hepatic Arteries: Right, main and left hepatic arteries demonstrate normal waveforms. Resistive Indices Main hepatic artery: 0.65-0.79 Right hepatic artery: 0.67-0.75 Left hepatic artery: 0.69-0.70 Procedure Note Jamel Jaimes MD - 10/22/2025 EXAM: US ABDOMEN COMPLETE EXAM: US DUPLEX [id number] COMPLETE INDICATION: Post-op liver transplant DATE: 10/22/2025 9:06 AM EST COMPARISON: Ultrasound 10/18/2025 TECHNIQUE: Grayscale imaging was performed for evaluation of the liver,gallbladder, common bile duct, pancreas, spleen, and kidneys; color andspectral (duplex) Doppler analysis of the hepatic vasculature was alsoperformed. FINDINGS: Liver: Normal morphology and surface contour of the liver allograft.Equivocal increased parenchymal echogenicity. No focal hepatic lesions.Trace perihepatic fluid. Biliary/CBD: 4 mm. No intra or extrahepatic ductal dilatation. Gallbladder: Surgically absent. Pancreas: Obscured by overlying bowel gas. Right kidney: 12.0 cm in length. Normal parenchymal echogenicity. Nohydronephrosis. Other: Visualized portions of abdominal aorta are not aneurysmal. Theretrohepatic IVC is color Doppler patent. Partially visualized rightpleural effusion. DOPPLER: Hepatic Veins: Duplex evaluation of the hepatic vasculature demonstratesnormal flow in the right, middle and left hepatic veins. Portal Veins: The right, left and main portal vein demonstrate hepatopetalflow. Elevated velocity in the MPV, measuring approximately 130 cm/s. Hepatic Arteries: Right, main and left hepatic arteries demonstrate normalwaveforms. Resistive Indices Main hepatic artery: 0.65-0.79 Right hepatic artery: 0.67-0.75 Left hepatic artery: 0.69-0.70 IMPRESSION: ABDOMEN 1. Equivocal increased echogenicity of the liver allograft with traceperihepatic fluid. 2. Partially visualized right pleural effusion LIVER DOPPLER 1. Patent hepatic vasculature with antegrade flow. 2. Elevated velocity in the MPV, which can be seen in the earlypost-transplant setting. Approved by Abhishek Cosme MD on 10/22/2025 11:58 AM EST I have personally reviewed the images and I agree with this report. Report Verified by: Jamel Jaimes MD at 10/22/2025 12:02 PM EST us Leticia Lomeli MD IM US ORDERABLES Final Resul t * POC Glucose Monitoring Device (10/22/2025 10:23 AM EST) POC Glucose Monitoring Device 96 70 - 100 mg/dL 10/22/2025 10:24 AM EST [facility] Blood 10/22/2025 10:2 3 AM EST 10/22/2025 10:23 AM EST us Vani Winkler MD POINT OF CARE TEST ORDERABLE S Final Result [facility] [address] [place], [place] [address] * Tacrolimus level (10/22/2025 9:48 AM EST) Tacrolimus (LC-MS) 4.0 3.0 - 15.0 ng/mL 10/22/2025 12:57 PM EST [facility] Comment:Performed via liquid chromatography tandem mass spectrometry. Detection limit: 1 ng/mL. Individual target concentrations may vary due to target organ and time after transplant. This test has been developed and its performance characteristics determined by [facility] which is certified under the Clinical Laboratory Improvement Amendment of 1988 (CLIA-88) to perform high complexity testing. The test has not been cleared or approved by the [place] Food and Drug Administration (FDA). The FDA has determined that such clearance is not necessary. The test should be used for clinical purposes and is not regarded as investigational. Whole Blood 10/22/2025 9:48 AM EST 10/22/2025 10:01 AM EST Leticia Lomeli MD LAB BLOOD ORDERABLES Final Re sult Performing Organization Address City/[facility]/ZIP Co de Phone Number [facility] [address] [place] [address]. [address] * Phosphorus (10/22/2025 5:28 AM EST) Phosphorus 2.3 2.1 - 4.7 mg/dL 10/22/2025 6:20 AM EST [facility] Plasma 10/22/2025 5:28 AM EST 10/22/2025 5:42 AM EST Aspen Parr MD LAB BLOOD ORDERABLES Final Resul t Performing Organization Address [facility] de Phone Number [facility] [address] [place] [address]. [address] * Magnesium (10/22/2025 5:28 AM EST) Magnesium 1.7 1.5 - 2.5 mg/dL 10/22/2025 6:20 AM EST [facility] Plasma 10/22/2025 5:28 AM EST 10/22/2025 5:42 AM EST Aspen Parr MD LAB BLOOD ORDERABLES Final Resul t Performing Organization Address [facility] de Phone Number [address] * (ABNORMAL) CBC (10/22/2025 5:28 AM EST) WBC 6.6 3.8 - 10.8 10E3/uL 10/22/2025 5:48 AM EST [facility] RBC 2.84(L) 4.20 - 5.80 10E6/uL 10/22/2025 5:48 AM EST [facility] Hemoglobin 9.3(L) 13.2 - 17.1 g/dL 10/22/2025 5:48 AM EST [facility] Hematocrit 26.4(L) 38.5 - 50.0 % 10/22/2025 5:48 AM EST [facility] MCV 92.8 80.0 - 100.0 fL 10/22/2025 5:48 AM EST [facility] MCH 32.8 27.0 - 33.0 pg 10/22/2025 5:48 AM EST [facility] MCHC 35.4 32.0 - 36.0 g/dL 10/22/2025 5:48 AM EST [facility] RDW 16.0(H) 11.0 - 15.0 % 10/22/2025 5:48 AM EST [facility] Platelets 22(L) 140 - 400 10E3/uL 10/22/2025 5:48 AM [facility] Comment: CNV Specimen checked for clots. None detected. MPV 9.1 7.5 - 11.5 fL 10/22/2025 5:48 AM [facility] Whole Blood 10/22/2025 5:28 AM EST 10/22/2025 5:42 AM EST us Aspen Parr MD LAB BLOOD ORDERABLES Final Resul t [facility] [address] * (ABNORMAL) Hepatic Function Panel (10/22/2025 5:28 AM EST) Total Bilirubin 1.0 0.0 - 1.5 mg/dL 10/22/2025 6:20 AM EST [facility] Bilirubin, Direct 0.28 0.00 - 0.40 mg/dL 10/22/2025 6:20 AM EST [facility] AST 42(H) 13 - 39 U/L 10/22/2025 6:20 AM EST [facility] ALT 270(H) 7 - 52 U/L 10/22/2025 6:20 AM EST [facility] Alkaline Phosphatase 84 36 - 125 U/L 10/22/2025 6:20 AM EST [facility] Total Protein 4.3(L) 6.4 - 8.9 g/dL 10/22/2025 6:20 AM EST [facility] Albumin 2.1(L) 3.5 - 5.7 g/dL 10/22/2025 6:20 AM EST [facility] Bilirubin, Indirect 0.72 0.00 - 1.10 mg/dL 10/22/2025 6:20 AM EST [facility] Plasma 10/22/2025 5:28 AM EST 10/22/2025 5:42 AM EST us Aspen Parr MD LAB BLOOD ORDERABLES Final Resul t [facility] [address] [place] [address], [facility] * (ABNORMAL) Basic metabolic panel (10/22/2025 5:28 AM EST) Sodium 138 133 - 146 mmol/L 10/22/2025 6:20 AM EST [facility] Potassium 3.2(L) 3.5 - 5.3 mmol/L 10/22/2025 6:20 AM [facility] Chloride 107 98 - 110 mmol/L 10/22/2025 6:20 AM [facility] CO2 25 21 - 33 mmol/L 10/22/2025 6:20 AM [facility] Comment:High lactate dehydro genase concentrations in patient samples may cause falsely increased bicarbonate results. If markedly elevated LDH is observed or suspected, please assess results in conjunction with patient`s clinical presentation. In cases of discrepant results, consider evaluating CO2 in with a blood gas order. Anion Gap 6 3 - 16 mmol/L 10/22/2025 6:20 AM EST [facility] BUN 25 7 - 25 mg/dL 10/22/2025 6:20 AM [facility] Creatinine 0.81 0.60 - 1.30 mg/dL 10/22/2025 6:20 AM [facility] Glucose 100 70 - 100 mg/dL 10/22/2025 6:20 AM [facility] Calcium 6.8(L) 8.6 - 10.3 mg/dL 10/22/2025 6:20 AM EST [facility] Osmolality, Calculated 290 278 - 305 mOsm/kg 10/22/2025 6:20 AM EST [facility] EGFR >90 10/22/2025 6:20 AM EST [facility] Comment: As of 2022, the [...] renal disease. For additional information: [email or web address].org Plasma 10/22/2025 5:28 AM EST 10/22/2025 5:42 AM EST us Aspen Parr MD LAB BLOOD ORDERABLES Final Resul t Performing Organization Address City/State/[facility] Co de Phone Number [facility] [address] [id number] * (ABNORMAL) POC Glucose Monitoring Device (10/21/2025 4:31 PM EST) POC Glucose Monitoring Device 230(H) 70 - 100 mg/dL 10/21/2025 4:32 PM EST [facility] Blood 10/21/2025 4:31 PM EST 10/21/2025 4:32 PM EST us Vani Winkler MD POINT OF CARE TEST ORDERABLE S Final Result Performing Organization Address City/[facility]/ZIP Co de Phone Number [facility] [address] * (ABNORMAL) POC Glucose Monitoring Device (10/21/2025 12:27 PM EST) POC Glucose Monitoring Device 181(H) 70 - 100 mg/dL 10/21/2025 12:27 PM EST [facility] Blood 10/21/2025 12:2 7 PM EST 10/21/2025 12:27 PM EST Vani Winkler MD POINT OF CARE TEST ORDERABLE S Final Result Performing Organization Address [facility] Co de Phone Number [facility] [address] [facility] * Tacrolimus level (10/21/2025 8:30 AM EST) Pathologist [facility] Tacrolimus (LC-MS) 6.9 3.0 - 15.0 ng/mL 10/21/2025 3:07 PM EST [facility] Comment:Performed via liquid chromatography tandem mass spectrometry. Detection limit: 1 ng/mL. Individual target concentrations may vary due to target organ and time after transplant. This test has been developed and its performance characteristics determined by [facility] which is certified under the Clinical Laboratory Improvement Amendment of 1988 (CLIA-88) to perform high complexity testing. The test has not been cleared or approved by the US Food and Drug Administration (FDA). The FDA has determined that such clearance is not necessary. The test should be used for clinical purposes and is not regarded as investigational. Whole Blood 10/21/2025 8:30 AM EST 10/21/2025 8:35 AM EST Leticia Lomeli MD LAB BLOOD ORDERABLES Final Re sult Performing Organization Address [facility] Co de Phone Number [facility] [address] [facility]. [address] * (ABNORMAL) POC Glucose Monitoring Device (10/21/2025 8:18 AM EST) Pathologist [facility] POC Glucose Monitoring Device 112(H) 70 - 100 mg/dL 10/21/2025 8:28 AM EST [facility] Blood 10/21/2025 8:18 AM EST 10/21/2025 8:28 AM EST Vani Winkler MD POINT OF CARE TEST ORDERABLE S Final Result Performing Organization Address City/[facility]/ZIP Co de Phone Number [facility] [address] [facility] * (ABNORMAL) Hepatic Function Panel (10/21/2025 6:35 AM EST) [facility] Total Bilirubin 0.9 0.0 - 1.5 mg/dL 10/21/2025 7:45 AM EST [facility] Bilirubin, Direct 0.41(H) 0.00 - 0.40 mg/dL 10/21/2025 7:45 AM EST [facility] AST 64(H) 13 - 39 U/L 10/21/2025 7:45 AM EST [facility] ALT 389(H) 7 - 52 U/L 10/21/2025 7:45 AM EST [facility] Alkaline Phosphatase 83 36 - 125 U/L 10/21/2025 7:45 AM EST [facility] Total Protein 4.3(L) 6.4 - 8.9 g/dL 10/21/2025 7:45 AM EST [facility] Albumin 2.2(L) 3.5 - 5.7 g/dL 10/21/2025 7:45 AM EST [facility] Bilirubin, Indirect 0.49 0.00 - 1.10 mg/dL 10/21/2025 7:45 AM EST [facility] Plasma 10/21/2025 6:35 AM EST 10/21/2025 6:58 AM EST Aspen Parr MD LAB BLOOD ORDERABLES Final Resul t Performing Organization Address City/[facility]/ZIP Co de Phone Number [facility] [address] [facility] * Magnesium (10/21/2025 6:35 AM EST) Magnesium 2.0 1.5 - 2.5 mg/dL 10/21/2025 7:45 AM EST [facility] Plasma 10/21/2025 6:3 5 AM EST 10/21/2025 6:58 AM EST us Aspen Parr MD LAB BLOOD ORDERABLES Final Resul t [facility] [address] [id number] * (ABNORMAL) Renal Function Panel w/EGFR (10/21/2025 6:35 AM EST) Sodium 139 133 - 146 mmol/L 10/21/2025 7:45 AM EST [facility] Potassium 3.5 3.5 - 5.3 mmol/L 10/21/2025 7:45 AM EST [facility] Chloride 108 98 - 110 mmol/L 10/21/2025 7:45 AM [facility] CO2 26 21 - 33 mmol/L 10/21/2025 7:45 AM EST [facility] Comment:High lactate dehydro genase concentrations in patient samples may cause falsely increased bicarbonate results. If markedly elevated LDH is observed or suspected, please assess results in conjunction with patient`s clinical presentation. In cases of discrepant results, consider evaluating CO2 in with a blood gas order. Anion Gap 5 3 - 16 mmol/L 10/21/2025 7:45 AM EST [facility] BUN 39(H) 7 - 25 mg/dL 10/21/2025 7:45 AM [facility] Creatinine 0.96 0.60 - 1.30 mg/dL 10/21/2025 7:45 AM [facility] Glucose 126(H) 70 - 100 mg/dL 10/21/2025 7:45 AM EST [facility] Calcium 6.8(L) 8.6 - 10.3 mg/dL 10/21/2025 7:45 AM [facility] Phosphorus 2.8 2.1 - 4.7 mg/dL 10/21/2025 7:45 AM [facility] Albumin 2.2(L) 3.5 - 5.7 g/dL 10/21/2025 7:45 AM EST [facility] Osmolality, Calculated 299 278 - 305 mOsm/kg 10/21/2025 7:45 AM EST [facility] EGFR 88 10/21/2025 7:45 AM EST [facility] Comment:As of 2022, the estimated GFR is calculated [...] Kidney Disease. Am J Kidney Dis. 2020. Plasma 10/21/2025 6:35 AM EST 10/21/2025 6:58 AM EST us Aspen Parr MD LAB BLOOD ORDERABLES Final Resul t [facility] [address] [facility]. [place] [id number], [facility] * (ABNORMAL) CBC (10/21/2025 6:35 AM EST) WBC 8.4 3.8 - 10.8 10E3/uL 10/21/2025 7:55 AM EST [facility] RBC 2.68(L) 4.20 - 5.80 10E6/uL 10/21/2025 7:55 AM EST [facility] Hemoglobin 8.9(L) 13.2 - 17.1 g/dL 10/21/2025 7:55 AM EST [facility] Hematocrit 24.8(L) 38.5 - 50.0 % 10/21/2025 7:55 AM EST [facility] MCV 92.6 80.0 - 100.0 fL 10/21/2025 7:55 AM EST [facility] MCH 33.3(H) 27.0 - 33.0 pg 10/21/2025 7:55 AM EST [facility] MCHC 36.0 32.0 - 36.0 g/dL 10/21/2025 7:55 AM EST [facility] RDW 16.9(H) 11.0 - 15.0 % 10/21/2025 7:55 AM EST [facility] Platelets 20(L) 140 - 400 10E3/uL 10/21/2025 7:55 AM EST [facility] Comment: CNV Specimen checked for clots. None detected. MPV 8.5 7.5 - 11.5 fL 10/21/2025 7:55 AM EST [facility] Whole Blood 10/21/2025 6:35 AM EST 10/21/2025 6:58 AM EST Aspen Parr MD LAB BLOOD ORDERABLES Final Resul t [facility] [address] * (ABNORMAL) POC Glucose Monitoring Device (10/20/2025 5:17 PM EST) POC Glucose Monitoring Device 195(H) 70 - 100 mg/dL 10/20/2025 5:18 PM EST [facility] Blood 10/20/2025 5:17 PM EST 10/20/2025 5:18 PM EST Vani Winkler MD POINT OF CARE TEST ORDERABLE S Final Result [facility] [address] * (ABNORMAL) POC Glucose Monitoring Device (10/20/2025 2:24 PM EST) POC Glucose Monitoring Device 205(H) 70 - 100 mg/dL 10/20/2025 2:24 PM EST [facility] Blood 10/20/2025 2:24 PM EST 10/20/2025 2:24 PM EST Vani Winkler MD POINT OF CARE TEST ORDERABLE S Final Result Performing Organization Address City/[facility]/ZIP Co de Phone Number [facility] [address] * Tacrolimus level (10/20/2025 10:31 AM EST) Tacrolimus (LC-MS) 7.9 3.0 - 15.0 ng/mL 10/20/2025 2:25 PM EST [facility] Comment:Performed via liquid chromatography tandem mass spectrometry. Detection limit: 1 ng/mL. Individual target concentrations may vary due to target organ and time after transplant. This test has been developed and its performance characteristics determined by [facility] which is certified under the Clinical Laboratory Improvement Amendment of 1988 (CLIA-88) to perform high complexity testing. The test has not been cleared or approved by the US Food and Drug Administration (FDA). The FDA has determined that such clearance is not necessary. The test should be used for clinical purposes and is not regarded as investigational. Whole Blood 10/20/2025 10:3 1 AM EST 10/20/2025 10:43 AM EST Leticia Lomeli MD LAB BLOOD ORDERABLES Final Re sult Performing Organization Address [facility] Co de Phone Number [facility] [address] [facility] * (ABNORMAL) POC Glucose Monitoring Device (10/20/2025 9:24 AM EST) POC Glucose Monitoring Device 227(H) 70 - 100 mg/dL 10/20/2025 9:25 AM EST [facility] Blood 10/20/2025 9:24 AM EST 10/20/2025 9:25 AM EST Vani Winkler MD POINT OF CARE TEST ORDERABLE S Final Result [facility] [address] [facility] * Magnesium (10/20/2025 5:31 AM EST) Magnesium 2.1 1.5 - 2.5 mg/dL 10/20/2025 7:35 AM EST [facility] Plasma 10/20/2025 5:31 AM EST 10/20/2025 5:42 AM EST Aspen Parr MD LAB BLOOD ORDERABLES Final Resul t Performing Organization Address [facility] Co de Phone Number [facility] [address] [facility] * (ABNORMAL) Hepatic Function Panel (10/20/2025 5:31 AM EST) Total Bilirubin 0.9 0.0 - 1.5 mg/dL 10/20/2025 7:35 AM EST [facility] Bilirubin, Direct 0.43(H) 0.00 - 0.40 mg/dL 10/20/2025 7:35 AM EST [facility] AST 161(H) 13 - 39 U/L 10/20/2025 7:35 AM EST [facility] ALT 532(H) 7 - 52 U/L 10/20/2025 7:35 AM EST [facility] Alkaline Phosphatase 67 36 - 125 U/L 10/20/2025 7:35 AM EST [facility] Total Protein 4.2(L) 6.4 - 8.9 g/dL 10/20/2025 7:35 AM EST [facility] Albumin 2.2(L) 3.5 - 5.7 g/dL 10/20/2025 7:35 AM EST [facility] Bilirubin, Indirect 0.47 0.00 - 1.10 mg/dL 10/20/2025 7:35 AM EST [facility] Plasma 10/20/2025 5:31 AM EST 10/20/2025 5:42 AM EST us Aspen Parr MD LAB BLOOD ORDERABLES Final Resul t Performing Organization Address City/[facility]/ZIP Co de Phone Number [facility] [address] [facility] * (ABNORMAL) Renal Function Panel w/EGFR (10/20/2025 5:31 AM EST) Sodium 142 133 - 146 mmol/L 10/20/2025 7:23 AM [facility] Potassium 3.8 3.5 - 5.3 mmol/L 10/20/2025 7:23 AM [facility] Chloride 111(H) 98 - 110 mmol/L 10/20/2025 7:23 AM [facility] CO2 25 21 - 33 mmol/L 10/20/2025 7:23 AM [facility] Comment:High lactate dehydro genase concentrations in patient samples may cause falsely increased bicarbonate results. If markedly elevated LDH is observed or suspected, please assess results in conjunction with patient`s clinical presentation. In cases of discrepant results, consider evaluating CO2 in with a blood gas order. Anion Gap 6 3 - 16 mmol/L 10/20/2025 7:23 AM [facility] BUN 47(H) 7 - 25 mg/dL 10/20/2025 7:23 AM [facility] Creatinine 1.15 0.60 - 1.30 mg/dL 10/20/2025 7:23 AM [facility] Glucose 198(H) 70 - 100 mg/dL 10/20/2025 7:23 AM [facility] Calcium 6.8(L) 8.6 - 10.3 mg/dL 10/20/2025 7:23 AM [facility] Phosphorus 4.8(H) 2.1 - 4.7 mg/dL 10/20/2025 7:35 AM [facility] Albumin 2.2(L) 3.5 - 5.7 g/dL 10/20/2025 7:35 AM [facility] Osmolality, Calculated 312(H) 278 - 305 mOsm/kg 10/20/2025 7:23 AM [facility] EGFR 71 10/20/2025 7:23 AM [facility] Comment:As of 2022, the estimated GFR is calculated [...] Kidney Disease. Am J Kidney Dis. 2020. Plasma 10/20/2025 5:31 AM EST 10/20/2025 5:42 AM EST us Aspen Parr MD LAB BLOOD ORDERABLES Final Resul t [facility] [address] * (ABNORMAL) CBC (10/20/2025 5:31 AM EST) WBC 6.1 3.8 - 10.8 10E3/uL 10/20/2025 6:18 AM EST [facility] RBC 2.64(L) 4.20 - 5.80 10E6/uL 10/20/2025 6:18 AM EST [facility] Hemoglobin 8.5(L) 13.2 - 17.1 g/dL 10/20/2025 6:18 AM EST [facility] Hematocrit 24.6(L) 38.5 - 50.0 % 10/20/2025 6:18 AM EST [facility] MCV 93.2 80.0 - 100.0 fL 10/20/2025 6:18 AM EST [facility] MCH 32.2 27.0 - 33.0 pg 10/20/2025 6:18 AM EST [facility] MCHC 34.6 32.0 - 36.0 g/dL 10/20/2025 6:18 AM EST [facility] RDW 17.4(H) 11.0 - 15.0 % 10/20/2025 6:18 AM EST [facility] Platelets 17(LL) 140 - 400 10E3/uL 10/20/2025 6:18 AM EST [facility] Comment: Results verified by repeat analysis. Critical Result PLT:17 Called to and read back by ALEKSANDR SMITH RN at: 10/20/2025 06:18:19 by:DEJON FISHMAN 8.4 7.5 - 11.5 fL 10/20/2025 6:18 AM EST [facility] Whole Blood 10/20/2025 5:31 AM EST 10/20/2025 5:42 AM EST Aspen Parr MD LAB BLOOD ORDERABLES Final Resul t [facility] [address] * (ABNORMAL) POC Glucose Monitoring Device (10/20/2025 5:30 AM EST) POC Glucose Monitoring Device 208(H) 70 - 100 mg/dL 10/20/2025 5:31 AM EST [facility] Blood 10/20/2025 5:30 AM EST 10/20/2025 5:31 AM EST Vani Winkler MD POINT OF CARE TEST ORDERABLE S Final Result Performing Organization Address City/[facility] Co de Phone Number [facility] [address] * (ABNORMAL) Protime-INR (10/19/2025 11:03 PM EST) Protime 18.2(H) 12.1 - 15.1 seconds 10/19/2025 11:27 PM EST [facility] INR 1.4(H) 0.9 - 1.1 10/19/2025 11:27 PM EST [facility] Comment: RECOMMENDED THERAPEUTIC RANGES USING INR : Stable oral anticoagulant therapy: 2.0 - 3.0 Mechanical prosthetic heart valve: 2.5 - 3.5 Recurrent acute myocardial infarction: 2.5 - 3.5 Plasma 10/19/2025 11:0 3 PM EST 10/19/2025 11:07 PM EST us Aspen Parr MD LAB BLOOD ORDERABLES Final Resul t [facility] [address] [facility] * Magnesium (10/19/2025 11:03 PM EST) Magnesium 2.1 1.5 - 2.5 mg/dL 10/19/2025 11:45 PM EST [facility] Plasma 10/19/2025 11:0 3 PM EST 10/19/2025 11:07 PM EST Aspen Parr MD LAB BLOOD ORDERABLES Final Resul t Performing Organization Address City/[facility]/ZIP Co de Phone Number [facility] [address] [facility] * (ABNORMAL) Hepatic Function Panel (10/19/2025 11:03 PM EST) Total Bilirubin 1.0 0.0 - 1.5 mg/dL 10/19/2025 11:45 PM EST [facility] Bilirubin, Direct 0.48(H) 0.00 - 0.40 mg/dL 10/19/2025 11:45 PM EST [facility] AST 223(H) 13 - 39 U/L 10/19/2025 11:45 PM EST [facility] ALT 569(H) 7 - 52 U/L 10/19/2025 11:45 PM EST [facility] Alkaline Phosphatase 68 36 - 125 U/L 10/19/2025 11:45 PM EST [facility] Total Protein 4.4(L) 6.4 - 8.9 g/dL 10/19/2025 11:45 PM EST [facility] Albumin 2.2(L) 3.5 - 5.7 g/dL 10/19/2025 11:45 PM EST [facility] Bilirubin, Indirect 0.52 0.00 - 1.10 mg/dL 10/19/2025 11:45 PM EST [facility] Plasma 10/19/2025 11:0 3 PM EST 10/19/2025 11:07 PM EST Aspen Parr MD LAB BLOOD ORDERABLES Final Resul t [facility] [address] [place] [id number], [facility] * (ABNORMAL) Renal Function Panel w/EGFR (10/19/2025 11:03 PM EST) Sodium 144 133 - 146 mmol/L 10/19/2025 11:33 PM EST [facility] Potassium 3.6 3.5 - 5.3 mmol/L 10/19/2025 11:33 PM [facility] Chloride 110 98 - 110 mmol/L 10/19/2025 11:33 PM [facility] CO2 25 21 - 33 mmol/L 10/19/2025 11:33 PM [facility] Comment:High lactate dehydro genase concentrations in patient samples may cause falsely increased bicarbonate results. If markedly elevated LDH is observed or suspected, please assess results in conjunction with patient`s clinical presentation. In cases of discrepant results, consider evaluating CO2 in with a blood gas order. Anion Gap 9 3 - 16 mmol/L 10/19/2025 11:33 PM [facility] BUN 46(H) 7 - 25 mg/dL 10/19/2025 11:33 PM [facility] Creatinine 1.24 0.60 - 1.30 mg/dL 10/19/2025 11:33 PM [facility] Glucose 184(H) 70 - 100 mg/dL 10/19/2025 11:33 PM [facility] Calcium 7.1(L) 8.6 - 10.3 mg/dL 10/19/2025 11:33 PM [facility] Phosphorus 4.9(H) 2.1 - 4.7 mg/dL 10/19/2025 11:45 PM [facility] Albumin 2.2(L) 3.5 - 5.7 g/dL 10/19/2025 11:45 PM [facility] Osmolality, Calculated 315(H) 278 - 305 mOsm/kg 10/19/2025 11:33 PM [facility] EGFR 65 10/19/2025 11:33 PM [facility] Comment:As of 2022, the estimated GFR is calculated [...] Kidney Disease. Am J Kidney Dis. 2020. Plasma 10/19/2025 11:0 3 PM EST 10/19/2025 11:07 PM EST us Aspen Parr MD LAB BLOOD ORDERABLES Final Resul t [facility] [address] [id number] * (ABNORMAL) CBC (10/19/2025 11:03 PM EST) WBC 7.0 3.8 - 10.8 10E3/uL 10/19/2025 11:20 PM EST [facility] RBC 2.77(L) 4.20 - 5.80 10E6/uL 10/19/2025 11:20 PM EST [facility] Hemoglobin 8.9(L) 13.2 - 17.1 g/dL 10/19/2025 11:20 PM EST [facility] Hematocrit 25.8(L) 38.5 - 50.0 % 10/19/2025 11:20 PM EST [facility] MCV 93.2 80.0 - 100.0 fL 10/19/2025 11:20 PM EST [facility] MCH 32.2 27.0 - 33.0 pg 10/19/2025 11:20 PM EST [facility] MCHC 34.5 32.0 - 36.0 g/dL 10/19/2025 11:20 PM EST [facility] RDW 18.1(H) 11.0 - 15.0 % 10/19/2025 11:20 PM EST [facility] Platelets 20(L) 140 - 400 10E3/uL 10/19/2025 11:20 PM EST [facility] Comment:CNV MPV 8.0 7.5 - 11.5 fL 10/19/2025 11:20 PM EST [facility] Whole Blood 10/19/2025 11:0 3 PM EST 10/19/2025 11:07 PM EST us Aspen Parr MD LAB BLOOD ORDERABLES Final Resul t [facility] [address] [facility] * (ABNORMAL) POC Glucose Monitoring Device (10/19/2025 11:02 PM EST) POC Glucose Monitoring Device 185(H) 70 - 100 mg/dL 10/19/2025 11:03 PM EST [facility] Blood 10/19/2025 11:0 2 PM EST 10/19/2025 11:03 PM EST Vani Winkler MD POINT OF CARE TEST ORDERABLE S Final Result Performing Organization Address City/[facility]/ZIP Co de Phone Number [facility] [address] [facility] * (ABNORMAL) POC Glucose Monitoring Device (10/19/2025 5:24 PM EST) POC Glucose Monitoring Device 166(H) 70 - 100 mg/dL 10/19/2025 5:35 PM EST [facility] Blood 10/19/2025 5:24 PM EST 10/19/2025 5:35 PM EST Vani Winkler MD POINT OF CARE TEST ORDERABLE S Final Result [facility] [address] * (ABNORMAL) POC Glucose Monitoring Device (10/19/2025 12:26 PM EST) POC Glucose Monitoring Device 156(H) 70 - 100 mg/dL 10/19/2025 12:27 PM EST [facility] Blood 10/19/2025 12:2 6 PM EST 10/19/2025 12:27 PM EST Vani Winkler MD POINT OF CARE TEST ORDERABLE S Final Result Performing Organization Address City/[facility]/ZIP Co de Phone Number [facility] [address] [facility] * (ABNORMAL) POC Glucose Monitoring Device (10/19/2025 9:51 AM EST) POC Glucose Monitoring Device 110(H) 70 - 100 mg/dL 10/19/2025 9:52 AM EST [facility] Blood 10/19/2025 9:51 AM EST 10/19/2025 9:52 AM EST Vani Winkler MD POINT OF CARE TEST ORDERABLE S Final Result Performing Organization Address City/[facility] de Phone Number [facility] [address] * (ABNORMAL) Tacrolimus level (10/19/2025 8:29 AM EST) Tacrolimus (LC-MS) 2.1(L) 3.0 - 15.0 ng/mL 10/19/2025 3:06 PM EST [facility] Comment:Performed via liquid chromatography tandem mass spectrometry. Detection limit: 1 ng/mL. Individual target concentrations may vary due to target organ and time after transplant. This test has been developed and its performance characteristics determined by [facility] which is certified under the Clinical Laboratory Improvement Amendment of 1988 (CLIA-88) to perform high complexity testing. The test has not been cleared or approved by the US Food and Drug Administration (FDA). The FDA has determined that such clearance is not necessary. The test should be used for clinical purposes and is not regarded as investigational. Whole Blood 10/19/2025 8:29 AM EST 10/19/2025 8:33 AM EST Leticia Lomeli MD LAB BLOOD ORDERABLES Final Re sult Performing Organization Address City/[facility] Co de Phone Number [facility] [address] * (ABNORMAL) Protime-INR (10/19/2025 8:29 AM EST) Protime 19.1(H) 12.1 - 15.1 seconds 10/19/2025 9:09 AM EST [facility] INR 1.5(H) 0.9 - 1.1 10/19/2025 9:09 AM EST [facility] Comment: RECOMMENDED THERAPEUTIC RANGES USING INR : Stable oral anticoagulant therapy: 2.0 - 3.0 Mechanical prosthetic heart valve: 2.5 - 3.5 Recurrent acute myocardial infarction: 2.5 - 3.5 Plasma 10/19/2025 8:29 AM EST 10/19/2025 8:33 AM EST us Aspen Parr MD LAB BLOOD ORDERABLES Final Resul t Performing Organization Address [facility] Co de Phone Number [facility] [address] * Magnesium (10/19/2025 8:29 AM EST) Magnesium 2.0 1.5 - 2.5 mg/dL 10/19/2025 9:28 AM EST [facility] Plasma 10/19/2025 8:29 AM EST 10/19/2025 8:33 AM EST Aspen Parr MD LAB BLOOD ORDERABLES Final Resul t Performing Organization Address [place] Center/[facility] Co de Phone Number [facility] [address] [facility]. [address] * (ABNORMAL) Hepatic Function Panel (10/19/2025 8:29 AM EST) Total Bilirubin 1.0 0.0 - 1.5 mg/dL 10/19/2025 9:28 AM EST [facility] Bilirubin, Direct 0.44(H) 0.00 - 0.40 mg/dL 10/19/2025 9:28 AM EST [facility] AST 450(H) 13 - 39 U/L 10/19/2025 9:28 AM EST [facility] ALT 725(H) 7 - 52 U/L 10/19/2025 9:28 AM EST [facility] Alkaline Phosphatase 65 36 - 125 U/L 10/19/2025 9:28 AM EST [facility] Total Protein 4.4(L) 6.4 - 8.9 g/dL 10/19/2025 9:28 AM EST [facility] Albumin 2.2(L) 3.5 - 5.7 g/dL 10/19/2025 9:28 AM EST [facility] Bilirubin, Indirect 0.56 0.00 - 1.10 mg/dL 10/19/2025 9:28 AM EST [facility] Plasma 10/19/2025 8:29 AM EST 10/19/2025 8:33 AM EST us Aspen Parr MD LAB BLOOD ORDERABLES Final Resul t [facility] [address] [id number] * (ABNORMAL) Renal Function Panel w/EGFR (10/19/2025 8:29 AM EST) Sodium 145 133 - 146 mmol/L 10/19/2025 9:09 AM EST [facility] Potassium 3.6 3.5 - 5.3 mmol/L 10/19/2025 9:09 AM [facility] Chloride 113(H) 98 - 110 mmol/L 10/19/2025 9:09 AM EST [facility] CO2 25 21 - 33 mmol/L 10/19/2025 9:09 AM EST [facility] Comment:High lactate dehydro genase concentrations in patient samples may cause falsely increased bicarbonate results. If markedly elevated LDH is observed or suspected, please assess results in conjunction with patient`s clinical presentation. In cases of discrepant results, consider evaluating CO2 in with a blood gas order. Anion Gap 7 3 - 16 mmol/L 10/19/2025 9:09 AM EST [facility] BUN 38(H) 7 - 25 mg/dL 10/19/2025 9:09 AM EST [facility] Creatinine 1.16 0.60 - 1.30 mg/dL 10/19/2025 9:09 AM EST [facility] Glucose 129(H) 70 - 100 mg/dL 10/19/2025 9:09 AM EST [facility] Calcium 7.2(L) 8.6 - 10.3 mg/dL 10/19/2025 9:09 AM EST [facility] Phosphorus 4.0 2.1 - 4.7 mg/dL 10/19/2025 9:28 AM EST [facility] Albumin 2.2(L) 3.5 - 5.7 g/dL 10/19/2025 9:28 AM EST [facility] Osmolality, Calculated 311(H) 278 - 305 mOsm/kg 10/19/2025 9:09 AM EST [facility] EGFR 70 10/19/2025 9:09 AM EST [facility] Comment:As of 2022, the estimated GFR is calculated [...] Kidney Disease. Am J Kidney Dis. 2020. Plasma 10/19/2025 8:29 AM EST 10/19/2025 8:33 AM EST us Aspen Parr MD LAB BLOOD ORDERABLES Final Resul t [facility] [address] * (ABNORMAL) CBC (10/19/2025 8:29 AM EST) WBC 9.8 3.8 - 10.8 10E3/uL 10/19/2025 9:06 AM EST [facility] RBC 2.90(L) 4.20 - 5.80 10E6/uL 10/19/2025 9:06 AM [facility] Hemoglobin 9.6(L) 13.2 - 17.1 g/dL 10/19/2025 9:06 AM [facility] Hematocrit 26.8(L) 38.5 - 50.0 % 10/19/2025 9:06 AM [facility] MCV 92.4 80.0 - 100.0 fL 10/19/2025 9:06 AM [facility] MCH 33.2(H) 27.0 - 33.0 pg 10/19/2025 9:06 AM [facility] MCHC 36.0 32.0 - 36.0 g/dL 10/19/2025 9:06 AM [facility] RDW 18.5(H) 11.0 - 15.0 % 10/19/2025 9:06 AM [facility] Platelets 22(L) 140 - 400 10E3/uL 10/19/2025 9:06 AM [facility] Comment: CNV Specimen checked for clots. None detected. MPV 8.5 7.5 - 11.5 fL 10/19/2025 9:06 AM [facility] Whole Blood 10/19/2025 8:29 AM EST 10/19/2025 8:33 AM EST us Aspen Parr MD LAB BLOOD ORDERABLES Final Resul t [facility] [address] [place] [address], [facility] * (ABNORMAL) POC Glucose Monitoring Device (10/19/2025 8:28 AM EST) POC Glucose Monitoring Device 122(H) 70 - 100 mg/dL 10/19/2025 8:39 AM EST [facility] Blood 10/19/2025 8:28 AM EST 10/19/2025 8:38 AM EST us Vani Winkler MD POINT OF CARE TEST ORDERABLE S Final Result Performing Organization Address [facility] de Phone Number [facility] [address] [place] [address]. [address] * (ABNORMAL) POC Glucose Monitoring Device (10/19/2025 7:07 AM EST) POC Glucose Monitoring Device 136(H) 70 - 100 mg/dL 10/19/2025 7:08 AM EST [facility] Blood 10/19/2025 7:07 AM EST 10/19/2025 7:08 AM EST us Vani Winkler MD POINT OF CARE TEST ORDERABLE S Final Result Performing Organization Address [facility] de Phone Number [facility] [address] [place] [address]. [address] * (ABNORMAL) POC Glucose Monitoring Device (10/19/2025 6:28 AM EST) POC Glucose Monitoring Device 109(H) 70 - 100 mg/dL 10/19/2025 6:29 AM EST [facility] Blood 10/19/2025 6:28 AM EST 10/19/2025 6:29 AM EST us Vani Winkler MD POINT OF CARE TEST ORDERABLE S Final Result Performing Organization Address [facility] de Phone Number [facility] [address] [place] [address]. [address] * (ABNORMAL) POC Glucose Monitoring Device (10/19/2025 6:10 AM EST) POC Glucose Monitoring Device 108(H) 70 - 100 mg/dL 10/19/2025 6:12 AM EST [facility] Blood 10/19/2025 6:10 AM EST 10/19/2025 6:11 AM EST us Vani Winkler MD POINT OF CARE TEST ORDERABLE S Final Result [facility] [address] [facility]. [address] * (ABNORMAL) POC Glucose Monitoring Device (10/19/2025 4:06 AM EST) POC Glucose Monitoring Device 115(H) 70 - 100 mg/dL 10/19/2025 4:07 AM EST [facility] Blood 10/19/2025 4:06 AM EST 10/19/2025 4:07 AM EST us Vani Winkler MD POINT OF CARE TEST ORDERABLE S Final Result Performing Organization Address [facility] Co de Phone Number [facility] [address] [place] [facility]. [address] * (ABNORMAL) POC Glucose Monitoring Device (10/19/2025 2:04 AM EST) POC Glucose Monitoring Device 129(H) 70 - 100 mg/dL 10/19/2025 2:06 AM EST [facility] Blood 10/19/2025 2:04 AM EST 10/19/2025 2:05 AM EST Vani Winkler MD POINT OF CARE TEST ORDERABLE S Final Result Performing Organization Address City/[facility]/ZIP Co de Phone Number [facility] [address] [facility]. [address] * (ABNORMAL) POC Glucose Monitoring Device (10/18/2025 11:57 PM EST) POC Glucose Monitoring Device 131(H) 70 - 100 mg/dL 10/18/2025 11:58 PM EST [facility] Blood 10/18/2025 11:5 7 PM EST 10/18/2025 11:58 PM EST Vani Winkler MD POINT OF CARE TEST ORDERABLE S Final Result [facility] [address] * Lactic Acid (10/18/2025 10:20 PM EST) Lactate 0.8 0.5 - 2.2 mmol/L 10/18/2025 11:03 PM EST [facility] Plasma 10/18/2025 10:2 0 PM EST 10/18/2025 10:26 PM EST Aspen Parr MD LAB BLOOD ORDERABLES Final Resul t [facility] [address] [place] [facility]. [address] * Magnesium (10/18/2025 10:20 PM EST) Magnesium 1.8 1.5 - 2.5 mg/dL 10/18/2025 11:18 PM EST [facility] Plasma 10/18/2025 10:2 0 PM EST 10/18/2025 10:26 PM EST Aspen Parr MD LAB BLOOD ORDERABLES Final Resul t [facility] [address] [place] [facility]. [address] * (ABNORMAL) Hepatic Function Panel (10/18/2025 10:20 PM EST) Total Bilirubin 1.0 0.0 - 1.5 mg/dL 10/18/2025 11:18 PM EST [facility] Bilirubin, Direct 0.51(H) 0.00 - 0.40 mg/dL 10/18/2025 11:18 PM EST [facility] AST 717(H) 13 - 39 U/L 10/18/2025 11:18 PM EST [facility] ALT 792(H) 7 - 52 U/L 10/18/2025 11:18 PM EST [facility] Alkaline Phosphatase 62 36 - 125 U/L 10/18/2025 11:18 PM EST [facility] Total Protein 4.3(L) 6.4 - 8.9 g/dL 10/18/2025 11:18 PM EST [facility] Albumin 2.1(L) 3.5 - 5.7 g/dL 10/18/2025 11:18 PM EST [facility] Bilirubin, Indirect 0.49 0.00 - 1.10 mg/dL 10/18/2025 11:18 PM EST [facility] Plasma 10/18/2025 10:2 0 PM EST 10/18/2025 10:26 PM EST us Aspen Parr MD LAB BLOOD ORDERABLES Final Resul t [facility] [address] [place] [address], [facility] * (ABNORMAL) Renal Function Panel w/EGFR (10/18/2025 10:20 PM EST) Sodium 146 133 - 146 mmol/L 10/18/2025 11:05 PM EST [facility] Potassium 3.1(L) 3.5 - 5.3 mmol/L 10/18/2025 11:05 PM [facility] Chloride 113(H) 98 - 110 mmol/L 10/18/2025 11:05 PM [facility] CO2 24 21 - 33 mmol/L 10/18/2025 11:05 PM [facility] Comment:High lactate dehydro genase concentrations in patient samples may cause falsely increased bicarbonate results. If markedly elevated LDH is observed or suspected, please assess results in conjunction with patient`s clinical presentation. In cases of discrepant results, consider evaluating CO2 in with a blood gas order. Anion Gap 9 3 - 16 mmol/L 10/18/2025 11:05 PM EST [facility] BUN 32(H) 7 - 25 mg/dL 10/18/2025 11:05 PM [facility] Creatinine 1.09 0.60 - 1.30 mg/dL 10/18/2025 11:05 PM [facility] Glucose 129(H) 70 - 100 mg/dL 10/18/2025 11:05 PM [facility] Calcium 7.4(L) 8.6 - 10.3 mg/dL 10/18/2025 11:05 PM [facility] Phosphorus 4.0 2.1 - 4.7 mg/dL 10/18/2025 11:18 PM EST [facility] Albumin 2.1(L) 3.5 - 5.7 g/dL 10/18/2025 11:18 PM EST [facility] Osmolality, Calculated 311(H) 278 - 305 mOsm/kg 10/18/2025 11:05 PM EST [facility] EGFR 76 10/18/2025 11:05 PM EST [facility] Comment:As of 2022, the estimated GFR is calculated [...] M, Rebecca DC, Josue ND, Dee Dee LOMELI, Nazia MARIE, et al. A Unifying Approach for GFR Estimation: Recommendations of the NKF-ASN Task Force on Reassessing the inclusion of Race in Diagnosing Kidney Disease. Am J Kidney Dis. 2020. Plasma 10/18/2025 10:2 0 PM EST 10/18/2025 10:26 PM EST us Aspen Parr MD LAB BLOOD ORDERABLES Final Resul t Performing Organization Address City/State/[facility] Co de Phone Number [facility] [address] * (ABNORMAL) Protime-INR (10/18/2025 10:20 PM EST) Protime 21.9(H) 12.1 - 15.1 seconds 10/18/2025 10:52 PM EST [facility] INR 1.8(H) 0.9 - 1.1 10/18/2025 10:52 PM EST [facility] Comment: RECOMMENDED THERAPEUTIC RANGES USING INR : Stable oral anticoagulant therapy: 2.0 - 3.0 Mechanical prosthetic heart valve: 2.5 - 3.5 Recurrent acute myocardial infarction: 2.5 - 3.5 Plasma 10/18/2025 10:2 0 PM EST 10/18/2025 10:26 PM EST Aspen Parr MD LAB BLOOD ORDERABLES Final Resul t Performing Organization Address City/[facility] Co de Phone Number [facility] [address] [id number], [facility] * (ABNORMAL) CBC (10/18/2025 10:20 PM EST) WBC 11.4(H) 3.8 - 10.8 10E3/uL 10/18/2025 10:59 PM EST [facility] RBC 2.92(L) 4.20 - 5.80 10E6/uL 10/18/2025 10:59 PM EST [facility] Hemoglobin 9.5(L) 13.2 - 17.1 g/dL 10/18/2025 10:59 PM EST [facility] Hematocrit 26.9(L) 38.5 - 50.0 % 10/18/2025 10:59 PM EST [facility] MCV 92.2 80.0 - 100.0 fL 10/18/2025 10:59 PM EST [facility] MCH 32.7 27.0 - 33.0 pg 10/18/2025 10:59 PM EST [facility] MCHC 35.4 32.0 - 36.0 g/dL 10/18/2025 10:59 PM EST [facility] RDW 18.3(H) 11.0 - 15.0 % 10/18/2025 10:59 PM EST [facility] Platelets 22(L) 140 - 400 10E3/uL 10/18/2025 10:59 PM EST [facility] Comment: CNV Specimen checked for clots. None detected. MPV 7.8 7.5 - 11.5 fL 10/18/2025 10:59 PM EST [facility] Whole Blood 10/18/2025 10:2 0 PM EST 10/18/2025 10:26 PM EST Aspen Parr MD LAB BLOOD ORDERABLES Final Resul t [facility] [address] * (ABNORMAL) POC Glucose Monitoring Device (10/18/2025 10:07 PM EST) POC Glucose Monitoring Device 134(H) 70 - 100 mg/dL 10/18/2025 10:08 PM EST [facility] Blood 10/18/2025 10:0 7 PM EST 10/18/2025 10:08 PM EST Vani Winkler MD POINT OF CARE TEST ORDERABLE S Final Result Performing Organization Address [facility] Co de Phone Number [facility] [address] [facility] * (ABNORMAL) POC Glucose Monitoring Device (10/18/2025 8:14 PM EST) POC Glucose Monitoring Device 138(H) 70 - 100 mg/dL 10/18/2025 8:15 PM EST [facility] Blood 10/18/2025 8:14 PM EST 10/18/2025 8:15 PM EST Vani Winkler MD POINT OF CARE TEST ORDERABLE S Final Result Performing Organization Address [facility] Co de Phone Number [facility] [address] [facility] * Lactic Acid (10/18/2025 5:47 PM EST) Lactate 0.7 0.5 - 2.2 mmol/L 10/18/2025 8:43 PM EST [facility] Plasma 10/18/2025 5:47 PM EST 10/18/2025 7:56 PM EST us Aspen Parr MD LAB BLOOD ORDERABLES Final Resul t Performing Organization Address City/[facility]/ZIP Co de Phone Number [facility] [address] [facility]. [address] * Magnesium (10/18/2025 5:47 PM EST) Magnesium 1.9 1.5 - 2.5 mg/dL 10/18/2025 6:40 PM EST [facility] Plasma 10/18/2025 5:47 PM EST 10/18/2025 5:54 PM EST Aspen Parr MD LAB BLOOD ORDERABLES Final Resul t Performing Organization Address [facility] Co de Phone Number [facility] [address] [facility] * (ABNORMAL) Hepatic Function Panel (10/18/2025 5:47 PM EST) Total Bilirubin 1.1 0.0 - 1.5 mg/dL 10/18/2025 6:40 PM EST [facility] Bilirubin, Direct 0.56(H) 0.00 - 0.40 mg/dL 10/18/2025 6:40 PM EST [facility] AST 965(H) 13 - 39 U/L 10/18/2025 6:40 PM EST [facility] ALT 871(H) 7 - 52 U/L 10/18/2025 6:40 PM EST [facility] Alkaline Phosphatase 61 36 - 125 U/L 10/18/2025 6:40 PM EST [facility] Total Protein 4.3(L) 6.4 - 8.9 g/dL 10/18/2025 6:40 PM EST [facility] Albumin 2.2(L) 3.5 - 5.7 g/dL 10/18/2025 6:40 PM EST [facility] Bilirubin, Indirect 0.54 0.00 - 1.10 mg/dL 10/18/2025 6:40 PM EST [facility] Plasma 10/18/2025 5:47 PM EST 10/18/2025 5:54 PM EST us Aspen Parr MD LAB BLOOD ORDERABLES Final Resul t Performing Organization Address City/[facility]/ZIP Co de Phone Number [facility] [address] [facility] * (ABNORMAL) Renal Function Panel w/EGFR (10/18/2025 5:47 PM EST) Sodium 144 133 - 146 mmol/L 10/18/2025 6:27 PM EST [facility] Potassium 3.4(L) 3.5 - 5.3 mmol/L 10/18/2025 6:27 PM [facility] Chloride 112(H) 98 - 110 mmol/L 10/18/2025 6:27 PM [facility] CO2 24 21 - 33 mmol/L 10/18/2025 6:27 PM [facility] Comment:High lactate dehydro genase concentrations in patient samples may cause falsely increased bicarbonate results. If markedly elevated LDH is observed or suspected, please assess results in conjunction with patient`s clinical presentation. In cases of discrepant results, consider evaluating CO2 in with a blood gas order. Anion Gap 8 3 - 16 mmol/L 10/18/2025 6:27 PM EST [facility] BUN 29(H) 7 - 25 mg/dL 10/18/2025 6:27 PM [facility] Creatinine 1.09 0.60 - 1.30 mg/dL 10/18/2025 6:27 PM [facility] Glucose 136(H) 70 - 100 mg/dL 10/18/2025 6:27 PM [facility] Calcium 7.5(L) 8.6 - 10.3 mg/dL 10/18/2025 6:27 PM [facility] Phosphorus 3.8 2.1 - 4.7 mg/dL 10/18/2025 6:40 PM [facility] Albumin 2.2(L) 3.5 - 5.7 g/dL 10/18/2025 6:40 PM [facility] Osmolality, Calculated 306(H) 278 - 305 mOsm/kg 10/18/2025 6:27 PM EST [facility] EGFR 76 10/18/2025 6:27 PM [facility] Comment:As of 2022, the estimated GFR is calculated [...] Kidney Disease. Am J Kidney Dis. 2020. Plasma 10/18/2025 5:47 PM EST 10/18/2025 5:54 PM EST Aspen Parr MD LAB BLOOD ORDERABLES Final Resul t Performing Organization Address [facility] Co de Phone Number [facility] [address] [facility]. [address] * (ABNORMAL) Protime-INR (10/18/2025 5:47 PM EST) Protime 21.8(H) 12.1 - 15.1 seconds 10/18/2025 6:13 PM EST [facility] INR 1.8(H) 0.9 - 1.1 10/18/2025 6:13 PM EST [facility] Comment: RECOMMENDED THERAPEUTIC RANGES USING INR : Stable oral anticoagulant therapy: 2.0 - 3.0 Mechanical prosthetic heart valve: 2.5 - 3.5 Recurrent acute myocardial infarction: 2.5 - 3.5 Plasma 10/18/2025 5:47 PM EST 10/18/2025 5:54 PM EST us Aspen Parr MD LAB BLOOD ORDERABLES Final Resul t Performing Organization Address [facility]/ZIP Co de Phone Number [facility] [address] [facility]. [address] * (ABNORMAL) CBC (10/18/2025 5:47 PM EST) WBC 11.8(H) 3.8 - 10.8 10E3/uL 10/18/2025 6:06 PM EST [facility] RBC 3.06(L) 4.20 - 5.80 10E6/uL 10/18/2025 6:06 PM EST [facility] Hemoglobin 10.0(L) 13.2 - 17.1 g/dL 10/18/2025 6:06 PM EST [facility] Hematocrit 28.3(L) 38.5 - 50.0 % 10/18/2025 6:06 PM EST [facility] MCV 92.5 80.0 - 100.0 fL 10/18/2025 6:06 PM EST [facility] MCH 32.5 27.0 - 33.0 pg 10/18/2025 6:06 PM EST [facility] MCHC 35.2 32.0 - 36.0 g/dL 10/18/2025 6:06 PM EST [facility] RDW 18.6(H) 11.0 - 15.0 % 10/18/2025 6:06 PM EST [facility] Platelets 22(L) 140 - 400 10E3/uL 10/18/2025 6:06 PM EST [facility] Comment: CNV Specimen checked for clots. None detected. MPV 7.7 7.5 - 11.5 fL 10/18/2025 6:06 PM EST [facility] Whole Blood 10/18/2025 5:47 PM EST 10/18/2025 5:54 PM EST Aspen Parr MD LAB BLOOD ORDERABLES Final Resul t Performing Organization Address City/[facility]/ZIP Co de Phone Number [facility] [address] * (ABNORMAL) POC Glucose Monitoring Device (10/18/2025 5:45 PM EST) POC Glucose Monitoring Device 135(H) 70 - 100 mg/dL 10/18/2025 5:46 PM EST [facility] Blood 10/18/2025 5:45 PM EST 10/18/2025 5:46 PM EST Vani Winkler MD POINT OF CARE TEST ORDERABLE S Final Result [facility] [address] [facility] * (ABNORMAL) POC Glucose Monitoring Device (10/18/2025 3:06 PM EST) POC Glucose Monitoring Device 128(H) 70 - 100 mg/dL 10/18/2025 3:07 PM EST [facility] Blood 10/18/2025 3:06 PM EST 10/18/2025 3:07 PM EST Vani Winkler MD POINT OF CARE TEST ORDERABLE S Final Result [facility] [address] * (ABNORMAL) POC Glucose Monitoring Device (10/18/2025 1:15 PM EST) POC Glucose Monitoring Device 128(H) 70 - 100 mg/dL 10/18/2025 1:15 PM EST [facility] Blood 10/18/2025 1:15 PM EST 10/18/2025 1:15 PM EST Vani Winkler MD POINT OF CARE TEST ORDERABLE S Final Result Performing Organization Address City/[facility]/ZIP Co de Phone Number [facility] [address] [facility]. [address] * (ABNORMAL) POC Glucose Monitoring Device (10/18/2025 12:12 PM EST) POC Glucose Monitoring Device 124(H) 70 - 100 mg/dL 10/18/2025 12:13 PM EST [facility] Blood 10/18/2025 12:1 2 PM EST 10/18/2025 12:13 PM EST Vani Winkler MD POINT OF CARE TEST ORDERABLE S Final Result [facility] [address] [facility]. [address] * Prepare Fresh Frozen Plasma (10/18/2025 11:58 AM EST) Product Code C0049Q70 [facility] Unit Number [id number] [facility]LL Dispense Status Released from [employer] [facility]LL Blood Expiration Date [facility]LL Coding System [id number] [facility]LL Product Code W7463Y19 [facility] Unit Number [id number] HCLL Dispense Status Released from [employer] [facility]LL Blood Expiration Date HCLL Coding System [id number] HCLL Product Code Q7762C77 [facility]LL Unit Number [id number] [facility]LL Dispense Status Released from [employer] [facility]LL Blood Expiration Date HCLL Coding System [id number] HCLL Product Code D1303Y82 [facility]LL Unit Number [id number] HCLL Dispense Status Released from [employer] [facility]LL Blood Expiration Date HCLL Coding System [id number] HCLL Product Code B7988X88 [facility]LL Unit Number [id number] HCLL Dispense Status Released from [employer] [facility]LL Blood Expiration Date HCLL Coding System [id number] HCLL us Attending Provider Unknown BLOOD BANK PRODUCT OR DERABLES Final Result HCLL * Lactic Acid (10/18/2025 11:21 AM EST) Lactate 0.7 0.5 - 2.2 mmol/L 10/18/2025 12:05 PM EST [facility] Plasma 10/18/2025 11:2 1 AM EST 10/18/2025 11:25 AM EST Aspen Parr MD LAB BLOOD ORDERABLES Final Resul t [facility] [address] [id number], [facility] * Magnesium (10/18/2025 11:21 AM EST) Magnesium 2.0 1.5 - 2.5 mg/dL 10/18/2025 12:23 PM EST [facility] Plasma 10/18/2025 11:2 1 AM EST 10/18/2025 11:25 AM EST Aspen Parr MD LAB BLOOD ORDERABLES Final Resul t Performing Organization Address City/[facility]/ZIP Co de Phone Number [facility] [address] * (ABNORMAL) Hepatic Function Panel (10/18/2025 11:21 AM EST) Total Bilirubin 1.3 0.0 - 1.5 mg/dL 10/18/2025 12:23 PM EST [facility] Bilirubin, Direct 0.74(H) 0.00 - 0.40 mg/dL 10/18/2025 12:23 PM EST [facility] AST 1,689(H) 13 - 39 U/L 10/18/2025 12:23 PM EST [facility] ALT 1034(H) 7 - 52 U/L 10/18/2025 12:23 PM EST [facility] Alkaline Phosphatase 60 36 - 125 U/L 10/18/2025 12:23 PM EST [facility] Total Protein 4.3(L) 6.4 - 8.9 g/dL 10/18/2025 12:23 PM EST [facility] Albumin 2.3(L) 3.5 - 5.7 g/dL 10/18/2025 12:23 PM EST [facility] Bilirubin, Indirect 0.56 0.00 - 1.10 mg/dL 10/18/2025 12:23 PM EST [facility] Plasma 10/18/2025 11:2 1 AM EST 10/18/2025 11:25 AM EST us Aspen Parr MD LAB BLOOD ORDERABLES Final Resul t Performing Organization Address City/[facility]/ZIP Co de Phone Number [facility] [address] * (ABNORMAL) Renal Function Panel w/EGFR (10/18/2025 11:21 AM EST) Sodium 146 133 - 146 mmol/L 10/18/2025 12:06 PM [facility] Potassium 3.9 3.5 - 5.3 mmol/L 10/18/2025 12:06 PM [facility] Chloride 114(H) 98 - 110 mmol/L 10/18/2025 12:06 PM [facility] CO2 25 21 - 33 mmol/L 10/18/2025 12:06 PM [facility] Comment:High lactate dehydro genase concentrations in patient samples may cause falsely increased bicarbonate results. If markedly elevated LDH is observed or suspected, please assess results in conjunction with patient`s clinical presentation. In cases of discrepant results, consider evaluating CO2 in with a blood gas order. Anion Gap 7 3 - 16 mmol/L 10/18/2025 12:06 PM [facility] BUN 26(H) 7 - 25 mg/dL 10/18/2025 12:06 PM [facility] Creatinine 1.01 0.60 - 1.30 mg/dL 10/18/2025 12:06 PM [facility] Glucose 113(H) 70 - 100 mg/dL 10/18/2025 12:06 PM [facility] Calcium 7.8(L) 8.6 - 10.3 mg/dL 10/18/2025 12:06 PM [facility] Phosphorus 3.1 2.1 - 4.7 mg/dL 10/18/2025 12:23 PM [facility] Albumin 2.3(L) 3.5 - 5.7 g/dL 10/18/2025 12:23 PM [facility] Osmolality, Calculated 308(H) 278 - 305 mOsm/kg 10/18/2025 12:06 PM [facility] EGFR 83 10/18/2025 12:06 PM [facility] Comment:As of 2022, the estimated GFR is calculated [...] Kidney Disease. Am J Kidney Dis. 2020. Plasma 10/18/2025 11:2 1 AM EST 10/18/2025 11:25 AM EST Aspen Parr MD LAB BLOOD ORDERABLES Final Resul t Performing Organization Address [facility] Co de Phone Number [facility] [address] [facility]. [address] * (ABNORMAL) Protime-INR (10/18/2025 11:21 AM EST) Protime 23.6(H) 12.1 - 15.1 seconds 10/18/2025 11:44 AM EST [facility] INR 2.0(H) 0.9 - 1.1 10/18/2025 11:44 AM EST [facility] Comment: RECOMMENDED THERAPEUTIC RANGES USING INR : Stable oral anticoagulant therapy: 2.0 - 3.0 Mechanical prosthetic heart valve: 2.5 - 3.5 Recurrent acute myocardial infarction: 2.5 - 3.5 Plasma 10/18/2025 11:2 1 AM EST 10/18/2025 11:25 AM EST Aspen Parr MD LAB BLOOD ORDERABLES Final Resul t Performing Organization Address City/[facility]/ZIP Co de Phone Number [facility] [address] [facility]. [address] * (ABNORMAL) CBC (10/18/2025 11:21 AM EST) WBC 10.9(H) 3.8 - 10.8 10E3/uL 10/18/2025 11:44 AM EST [facility] RBC 3.10(L) 4.20 - 5.80 10E6/uL 10/18/2025 11:44 AM EST [facility] Hemoglobin 10.2(L) 13.2 - 17.1 g/dL 10/18/2025 11:44 AM EST [facility] Hematocrit 29.0(L) 38.5 - 50.0 % 10/18/2025 11:44 AM EST [facility] MCV 93.7 80.0 - 100.0 fL 10/18/2025 11:44 AM EST [facility] MCH 32.9 27.0 - 33.0 pg 10/18/2025 11:44 AM EST [facility] MCHC 35.1 32.0 - 36.0 g/dL 10/18/2025 11:44 AM EST [facility] RDW 18.4(H) 11.0 - 15.0 % 10/18/2025 11:44 AM EST [facility] Platelets 29(L) 140 - 400 10E3/uL 10/18/2025 11:44 AM EST [facility] Comment:CNV MPV 7.6 7.5 - 11.5 fL 10/18/2025 11:44 AM EST [facility] Whole Blood 10/18/2025 11:2 1 AM EST 10/18/2025 11:25 AM EST us Aspen Parr MD LAB BLOOD ORDERABLES Final Resul t [facility] [address] * (ABNORMAL) POC Glucose Monitoring Device (10/18/2025 11:04 AM EST) POC Glucose Monitoring Device 121(H) 70 - 100 mg/dL 10/18/2025 11:05 AM EST [facility] Blood 10/18/2025 11:0 4 AM EST 10/18/2025 11:05 AM EST us Vani Winkler MD POINT OF CARE TEST ORDERABLE S Final Result [facility] [address] * (ABNORMAL) POC Glucose Monitoring Device (10/18/2025 10:29 AM EST) POC Glucose Monitoring Device 120(H) 70 - 100 mg/dL 10/18/2025 10:34 AM EST [facility] Blood 10/18/2025 10:2 9 AM EST 10/18/2025 10:34 AM EST us Vani Winkler MD POINT OF CARE TEST ORDERABLE S Final Result [facility] [address] [place] [address], [facility] * US Duplex Lxt-Tjb-Nxkmeyz Comp (10/18/2025 9:35 AM EST) Anatomical Region Laterality Modality Abdomen, Pelvis, Testes, Vascular Ultrasound 10/18/2025 8:03 AM EST Impressions 10/18/2025 9:53 AM EST IMPRESSION: RIGHT UPPER QUADRANT Equivocal increased echogenicity of the liver allograft. This could reflect some steatosis. LIVER DOPPLER Patent hepatic vasculature with normal waveforms.. Report Verified by: Balwinder Suárez MD at 10/18/2025 9:53 AM EST Narrative 10/18/2025 9:53 AM EST EXAM: US ABDOMEN LIMITED EXAM: US DUPLEX [id number] COMPLETE INDICATION: Post-op liver transplant Day 1 DATE: 10/18/2025 8:03 AM EST COMPARISON: None TECHNIQUE: Grayscale imaging was performed with attention to the right upper quadrant; color and spectral (duplex) Doppler analysis of the hepatic vasculature was also performed. FINDINGS: Liver: Normal morphology and surface contour of the liver allograft. Equivocal increased parenchymal echogenicity. No focal observations. Biliary/CBD: 4 mm. No intra or extrahepatic ductal dilatation. Gallbladder: Surgically absent.. Pancreas: Not visualized. Right kidney: 11.5 cm in length. Normal parenchymal echogenicity. No hydronephrosis. Other: No free fluid. DOPPLER: Hepatic Veins: Duplex evaluation of the hepatic vasculature demonstrates normal flow in the right, middle and left hepatic veins. Portal Veins: The right, left and main portal vein demonstrate hepatopetal flow. Hepatic Arteries: Right, main and left hepatic arteries demonstrate normal waveforms. Resistive Indices Main hepatic artery: 0.79-0.81 Right hepatic artery: 0.72-0.77 Left hepatic artery: 0.74 Procedure Note Balwinder Suárez MD - 10/18/2025 EXAM: US ABDOMEN LIMITED EXAM: US DUPLEX [id number] COMPLETE INDICATION: Post-op liver transplant Day 1 DATE: 10/18/2025 8:03 AM EST COMPARISON: None TECHNIQUE: Grayscale imaging was performed with attention to the rightupper quadrant; color and spectral (duplex) Doppler analysis of thehepatic vasculature was also performed. FINDINGS: Liver: Normal morphology and surface contour of the liver allograft.Equivocal increased parenchymal echogenicity. No focal observations. Biliary/CBD: 4 mm. No intra or extrahepatic ductal dilatation. Gallbladder: Surgically absent.. Pancreas: Not visualized. Right kidney: 11.5 cm in length. Normal parenchymal echogenicity. Nohydronephrosis. Other: No free fluid. DOPPLER: Hepatic Veins: Duplex evaluation of the hepatic vasculature demonstratesnormal flow in the right, middle and left hepatic veins. Portal Veins: The right, left and main portal vein demonstrate hepatopetalflow. Hepatic Arteries: Right, main and left hepatic arteries demonstrate normalwaveforms. Resistive Indices Main hepatic artery: 0.79-0.81 Right hepatic artery: 0.72-0.77 Left hepatic artery: 0.74 IMPRESSION: RIGHT UPPER QUADRANT Equivocal increased echogenicity of the liver allograft. This couldreflect some steatosis. LIVER DOPPLER Patent hepatic vasculature with normal waveforms.. Report Verified by: Balwinder Suárez MD at 10/18/2025 9:53 AM EST Aspen Parr MD [employer] [facility] [employer] US ORDERABLES Final Result * US Abdomen Limited (10/18/2025 9:35 AM EST) Anatomical Region Laterality Modality Abdomen, Pelvis Ultrasound 10/18/2025 8:03 AM EST Impressions 10/18/2025 9:53 AM EST IMPRESSION: RIGHT UPPER QUADRANT Equivocal increased echogenicity of the liver allograft. This could reflect some steatosis. LIVER DOPPLER Patent hepatic vasculature with normal waveforms.. Report Verified by: Balwinder Suárez MD at 10/18/2025 9:53 AM EST Narrative 10/18/2025 9:53 AM EST EXAM: US ABDOMEN LIMITED EXAM: US DUPLEX [id number] COMPLETE INDICATION: Post-op liver transplant Day 1 DATE: 10/18/2025 8:03 AM EST COMPARISON: None TECHNIQUE: Grayscale imaging was performed with attention to the right upper quadrant; color and spectral (duplex) Doppler analysis of the hepatic vasculature was also performed. FINDINGS: Liver: Normal morphology and surface contour of the liver allograft. Equivocal increased parenchymal echogenicity. No focal observations. Biliary/CBD: 4 mm. No intra or extrahepatic ductal dilatation. Gallbladder: Surgically absent.. Pancreas: Not visualized. Right kidney: 11.5 cm in length. Normal parenchymal echogenicity. No hydronephrosis. Other: No free fluid. DOPPLER: Hepatic Veins: Duplex evaluation of the hepatic vasculature demonstrates normal flow in the right, middle and left hepatic veins. Portal Veins: The right, left and main portal vein demonstrate hepatopetal flow. Hepatic Arteries: Right, main and left hepatic arteries demonstrate normal waveforms. Resistive Indices Main hepatic artery: 0.79-0.81 Right hepatic artery: 0.72-0.77 Left hepatic artery: 0.74 Procedure Note Balwinder Suárez MD - 10/18/2025 EXAM: US ABDOMEN LIMITED EXAM: US DUPLEX [id number] COMPLETE INDICATION: Post-op liver transplant Day 1 DATE: 10/18/2025 8:03 AM EST COMPARISON: None TECHNIQUE: Grayscale imaging was performed with attention to the rightupper quadrant; color and spectral (duplex) Doppler analysis of thehepatic vasculature was also performed. FINDINGS: Liver: Normal morphology and surface contour of the liver allograft.Equivocal increased parenchymal echogenicity. No focal observations. Biliary/CBD: 4 mm. No intra or extrahepatic ductal dilatation. Gallbladder: Surgically absent.. Pancreas: Not visualized. Right kidney: 11.5 cm in length. Normal parenchymal echogenicity. Nohydronephrosis. Other: No free fluid. DOPPLER: Hepatic Veins: Duplex evaluation of the hepatic vasculature demonstratesnormal flow in the right, middle and left hepatic veins. Portal Veins: The right, left and main portal vein demonstrate hepatopetalflow. Hepatic Arteries: Right, main and left hepatic arteries demonstrate normalwaveforms. Resistive Indices Main hepatic artery: 0.79-0.81 Right hepatic artery: 0.72-0.77 Left hepatic artery: 0.74 IMPRESSION: RIGHT UPPER QUADRANT Equivocal increased echogenicity of the liver allograft. This couldreflect some steatosis. LIVER DOPPLER Patent hepatic vasculature with normal waveforms.. Report Verified by: Balwinder Suárez MD at 10/18/2025 9:53 AM EST Aspen Parr MD [facility] ORDERABLES Final Result * (ABNORMAL) POC Glucose Monitoring Device (10/18/2025 9:11 AM EST) POC Glucose Monitoring Device 165(H) 70 - 100 mg/dL 10/18/2025 9:13 AM EST [facility] Blood 10/18/2025 9:11 AM EST 10/18/2025 9:12 AM EST Vani Winkler MD POINT OF CARE TEST ORDERABLE S Final Result Performing Organization Address City/[facility]/ZIP Co de Phone Number [facility] [address] * (ABNORMAL) POC Glucose Monitoring Device (10/18/2025 7:56 AM EST) POC Glucose Monitoring Device 179(H) 70 - 100 mg/dL 10/18/2025 7:57 AM EST [facility] Blood 10/18/2025 7:56 AM EST 10/18/2025 7:57 AM EST Vani Winkler MD POINT OF CARE TEST ORDERABLE S Final Result [facility] [address] * (ABNORMAL) POC Glucose Monitoring Device (10/18/2025 6:59 AM EST) POC Glucose Monitoring Device 187(H) 70 - 100 mg/dL 10/18/2025 7:00 AM EST [facility] Blood 10/18/2025 6:59 AM EST 10/18/2025 7:00 AM EST us Vani Winkler MD POINT OF CARE TEST ORDERABLE S Final Result [facility] [address] [place] [address], [facility] * X-ray Portable Chest (10/18/2025 6:37 AM EST) Anatomical Region Laterality Modality Chest Radiographic Liseth ging 10/18/2025 6:14 AM EST Impressions 10/18/2025 7:02 AM EST IMPRESSION: No significant interval change. Approved by Urban Schneider DO on 10/18/2025 6:40 AM EST I have personally reviewed the images and I agree with this report. Report Verified by: Oskar Kebede DO at 10/18/2025 7:02 AM EST Narrative 10/18/2025 7:02 AM EST EXAM: XR PORTABLE CHEST INDICATION: Shortness of breath TECHNIQUE: 1 view of the chest. COMPARISON: 7 hours prior FINDINGS: Medical Devices: Endotracheal tube terminates over the midthoracic trachea. Enteric suction tube courses below level of diaphragms and outside the pqjvb-pd-cgvn. Right internal jugular approach pulmonary artery catheter projects over the right main pulmonary. Right upper quadrant surgical drain in stable position. Heart and Mediastinum: Unchanged. Lungs and Pleura: Persistent left basilar pleural-parenchymal opacities. Right lung is grossly clear. No evidence for pneumothorax. Bones and Soft tissues: Unchanged. Procedure Note Joey Kebede DO - 10/18/2025 EXAM: XR PORTABLE CHEST INDICATION: Shortness of breath TECHNIQUE: 1 view of the chest. COMPARISON: 7 hours prior FINDINGS: Medical Devices: Endotracheal tube terminates over the midthoracictrachea. Enteric suction tube courses below level of diaphragms andoutside the umill-tm-ktem. Right internal jugular approach pulmonaryartery catheter projects over the right main pulmonary. Right upperquadrant surgical drain in stable position. Heart and Mediastinum: Unchanged. Lungs and Pleura: Persistent left basilar pleural-parenchymal opacities.Right lung is grossly clear. No evidence for pneumothorax. Bones and Soft tissues: Unchanged. IMPRESSION: No significant interval change. Approved by Urban Schneider DO on 10/18/2025 6:40 AM EST I have personally reviewed the images and I agree with this report. Report Verified by: Oskar Kebede DO at 10/18/2025 7:02 AM EST Aspen Parr MD IMG DIAGNOSTIC IMAGING ORDERABLE S Final Result * Prepare Platelets, leukoreduced, 1 Units (10/18/2025 6:17 AM EST) Product Code E1081B77 HCLL Unit Number [id number] HCLL Dispense Status Presumed Transfused_PT HCLL Blood Expiration Date HCLL Coding System [id number] HCLL Blood Bank Product Oskar Torres MD BLOOD BANK PRODUCT ORDERABLES Final Result Performing Organization Address City/[facility] Co de Phone Number HCLL * Prepare Platelets, leukoreduced, 2 Units (10/18/2025 6:17 AM EST) Product Code EL374C22 HCLL Unit Number [id number] HCLL Dispense Status Presumed Transfused_PT HCLL Blood Expiration Date HCLL Coding System ZMAP798 HCLL Product Code Z0490Z21 HCLL Unit Number [id number] HCLL Dispense Status Presumed Transfused_PT HCLL Blood Expiration Date [id number] HCLL Coding System ISOZ657 HCLL Blood Bank Product us Slade Munoz MD BLOOD BANK PRODUCT ORDERABLES Fi nal Result HCLL * Prepare RBC, leukoreduced, 5 Units (10/18/2025 6:16 AM EST) Product Code S4097Z78 HCLL Unit Number [id number] HCLL Dispense Status Presumed Transfused_PT HCLL Blood Expiration Date HCLL Coding System PEWI283 HCLL Product Code P3317C62 HCLL Unit Number [id number] HCLL Dispense Status Presumed Transfused_PT HCLL Blood Expiration Date HCLL Coding System KWUY221 HCLL Product Code I3829L15 HCLL Unit Number [id number] HCLL Dispense Status Presumed Transfused_PT HCLL Blood Expiration Date HCLL Coding System CCXG598 HCLL Product Code N8046K63 HCLL Unit Number [id number] HCLL Dispense Status Released from Crossmatch_RE HCLL Blood Expiration Date HCLL Coding System WKTD650 HCLL Product Code L3846F09 HCLL Unit Number [id number] HCLL Dispense Status Presumed Transfused_PT HCLL Blood Expiration Date HCLL Coding System SAME045 HCLL Blood Bank Product Kassi INTERIANO BLOOD BANK PRODUCT ORDERABLES Final Result Performing Organization Address [facility] Co de Phone Number HCLL * Prepare Cryoprecipitate (10/18/2025 6:15 AM EST) Product Code M1565D96 HCLL Unit Number [id number] HCLL Dispense Status Presumed Transfused_PT HCLL Blood Expiration Date HCLL Coding System ZJJY838 HCLL Attending Provider Unknown BLOOD BANK PRODUCT OR DERABLES Final Result Performing Organization Address City/[facility] Co de Phone Number HCLL * Prepare Cryoprecipitate, 1 Units (10/18/2025 6:15 AM EST) Product Code G4263W64 HCLL Unit Number [id number] HCLL Dispense Status Presumed Transfused_PT HCLL Blood Expiration Date HCLL Coding System RBWM084 HCLL Blood Bank Product Oskar Torres MD BLOOD BANK PRODUCT ORDERABLES Final Result Performing Organization Address [facility]/ZIP Co de Phone Number HCLL * Prepare Cryoprecipitate, 1 Units (10/18/2025 6:15 AM EST) Product Code H9871S38 HCLL Unit Number [id number] HCLL Dispense Status Presumed Transfused_PT HCLL Blood Expiration Date HCLL Coding System OXIV757 HCLL Product Code M2461B61 HCLL Unit Number [id number] HCLL Dispense Status Presumed Transfused_PT HCLL Blood Expiration Date HCLL Coding System TRPP329 HCLL Blood Bank Product Shannna Salas MD BLOOD BANK PRODUCT ORDERABLE S Final Result Performing Organization Address [facility] Co de Phone Number HCLL * Prepare Cryoprecipitate, 1 Units (10/18/2025 6:15 AM EST) Product Code X0024Y62 HCLL Unit Number [id number] HCLL Dispense Status Presumed Transfused_PT HCLL Blood Expiration Date HCLL Coding System XCUE131 HCLL Blood Bank Product Slade Munoz MD BLOOD BANK PRODUCT ORDERABLES Fi nal Result Performing Organization Address [facility] de Phone Number HCLL * Prepare Cryoprecipitate, 1 Units (10/18/2025 6:15 AM EST) Product Code R6277U33 HCLL Unit Number [id number] HCLL Dispense Status Presumed Transfused_PT HCLL Blood Expiration Date HCLL Coding System YSWV445 HCLL Blood Bank Product Slade Munoz MD BLOOD BANK PRODUCT ORDERABLES Fi nal Result Performing Organization Address City/[facility]/ZIP Co de Phone Number HC[facility] * Prepare RBC, leukoreduced (10/18/2025 6:15 AM EST) Product Code F0447G89 HCLL Unit Number [id number] HCLL Dispense Status Released from Crossmatch_RE HCLL Blood Expiration Date HCLL Coding System CXZL950 HCLL Product Code B8620O10 HCLL Unit Number [id number] HCLL Dispense Status Released from Crossmatch_RE HCLL Blood Expiration Date HCLL Coding System PBNO677 HCLL Product Code P9613P40 HCLL Unit Number [id number] HCLL Dispense Status Released from Crossmatch_RE HCLL Blood Expiration Date HCLL Coding System HHZY322 HCLL Product Code C1069U30 HCLL Unit Number [id number] HCLL Dispense Status Released from Crossmatch_RE HCLL Blood Expiration Date HCLL Coding System DIWV452 HCLL Product Code L9537K31 HCLL Unit Number [id number] HCLL Dispense Status Presumed Transfused_PT HCLL Blood Expiration Date HCLL Coding System HFVS993 HCLL us Attending Provider Unknown BLOOD BANK PRODUCT OR DERABLES Final Result HCLL * Prepare Fresh Frozen Plasma, 5 Units (10/18/2025 6:15 AM EST) Product Code C8799Q47 HCLL Unit Number [id number] HCLL Dispense Status Presumed Transfused_PT HCLL Blood Expiration Date HCLL Coding System ICUX058 HCLL Product Code X4939G29 HCLL Unit Number [id number] HCLL Dispense Status Presumed Transfused_PT HCLL Blood Expiration Date HCLL Coding System ECQX772 HCLL Product Code Q1835D34 HCLL Unit Number [id number] HCLL Dispense Status Presumed Transfused_PT HCLL Blood Expiration Date HCLL Coding System GGTP869 HCLL Product Code P4933N57 HCLL Unit Number [id number] HCLL Dispense Status Presumed Transfused_PT HCLL Blood Expiration Date HCLL Coding System CFQQ917 HCLL Product Code E9640N20 HCLL Unit Number [id number] HCLL Dispense Status Presumed Transfused_PT HCLL Blood Expiration Date HCLL Coding System HQZH975 HCLL Blood Bank Product Kassi INTERIANO BLOOD BANK PRODUCT ORDERABLES Final Result HCLL * (ABNORMAL) POC Glucose Monitoring Device (10/18/2025 6:06 AM EST) POC Glucose Monitoring Device 214(H) 70 - 100 mg/dL 10/18/2025 6:06 AM EST [facility] Blood 10/18/2025 6:06 AM EST 10/18/2025 6:06 AM EST Vani Winkler MD POINT OF CARE TEST ORDERABLE S Final Result [facility] [address] * (ABNORMAL) Blood gas, arterial (10/18/2025 5:19 AM EST) O2 Sat, Arterial 97 10/18/2025 5:28 AM EST [facility] FIO2 40 10/18/2025 5:28 AM EST [facility] pH, Arterial 7.34(L) 7.35 - 7.45 10/18/2025 5:28 AM EST [facility] pCO2, Arterial 48(H) 35 - 45 mm Hg 10/18/2025 5:28 AM EST [facility] pO2, Arterial 84 80 - 100 mm Hg 10/18/2025 5:28 AM EST [facility] HCO3, Arterial 25 22 - 26 mmol/L 10/18/2025 5:28 AM EST [facility] CO2 Content,Arteri al 27 23 - 27 mmol/L 10/18/2025 5:28 AM EST [facility] Base Excess, Arterial -0.2 -2.0 - 3.0 mmol/L 10/18/2025 5:28 AM EST [facility] %HBO2, Arterial 94.1(L) 95.0 - 98.0 % 10/18/2025 5:28 AM EST [facility] Carboxyhemoglo bin, Arterial 2.5 % 10/18/2025 5:28 AM EST [facility] Comment: CARBOXYHEMOGLOBIN (CO) REFERENCE RANGES: Non-Smokers: <2 % Smokers: <8 % TOXIC: >20 % Methemoglobin, Arterial 0.5 0.0 - 1.5 % 10/18/2025 5:28 AM EST [facility] Blood, Arterial 10/18/2025 5 :19 AM EST 10/18/2025 5:25 AM EST Vani Winkler MD LAB BLOOD ORDERABLES Final R esult Performing Organization Address City/[facility]/ZIP Co de Phone Number [facility] [address] [facility]. [address] * Lactic Acid (10/18/2025 5:02 AM EST) Lactate 1.0 0.5 - 2.2 mmol/L 10/18/2025 5:47 AM EST [facility] Plasma 10/18/2025 5:02 AM EST 10/18/2025 5:09 AM EST Aspen Parr MD LAB BLOOD ORDERABLES Final Resul t [facility] [address] * Magnesium (10/18/2025 5:02 AM EST) Magnesium 2.0 1.5 - 2.5 mg/dL 10/18/2025 6:05 AM EST [facility] Plasma 10/18/2025 5:02 AM EST 10/18/2025 5:13 AM EST Aspen Parr MD LAB BLOOD ORDERABLES Final Resul t Performing Organization Address [facility] de Phone Number [facility] [address] [facility] * (ABNORMAL) Hepatic Function Panel (10/18/2025 5:02 AM EST) Total Bilirubin 1.5 0.0 - 1.5 mg/dL 10/18/2025 6:05 AM EST [facility] Bilirubin, Direct 0.77(H) 0.00 - 0.40 mg/dL 10/18/2025 6:05 AM EST [facility] AST 2,612(H) 13 - 39 U/L 10/18/2025 6:05 AM EST [facility] ALT 1072(H) 7 - 52 U/L 10/18/2025 6:05 AM EST [facility] Alkaline Phosphatase 50 36 - 125 U/L 10/18/2025 6:05 AM EST [facility] Total Protein 4.0(L) 6.4 - 8.9 g/dL 10/18/2025 6:05 AM EST [facility] Albumin 2.2(L) 3.5 - 5.7 g/dL 10/18/2025 6:05 AM EST [facility] Bilirubin, Indirect 0.73 0.00 - 1.10 mg/dL 10/18/2025 6:05 AM EST [facility] Plasma 10/18/2025 5:02 AM EST 10/18/2025 5:13 AM EST Aspen Parr MD LAB BLOOD ORDERABLES Final Resul t Performing Organization Address [facility] Co de Phone Number [facility] [address] [facility]. [address] * (ABNORMAL) Renal Function Panel w/EGFR (10/18/2025 5:02 AM EST) Sodium 146 133 - 146 mmol/L 10/18/2025 6:05 AM EST [facility] Potassium 3.4(L) 3.5 - 5.3 mmol/L 10/18/2025 6:05 AM EST [facility] Chloride 111(H) 98 - 110 mmol/L 10/18/2025 6:05 AM EST [facility] CO2 26 21 - 33 mmol/L 10/18/2025 6:05 AM [facility] Comment:High lactate dehydro genase concentrations in patient samples may cause falsely increased bicarbonate results. If markedly elevated LDH is observed or suspected, please assess results in conjunction with patient`s clinical presentation. In cases of discrepant results, consider evaluating CO2 in with a blood gas order. Anion Gap 9 3 - 16 mmol/L 10/18/2025 6:05 AM [facility] BUN 22 7 - 25 mg/dL 10/18/2025 6:05 AM [facility] Creatinine 0.93 0.60 - 1.30 mg/dL 10/18/2025 6:05 AM [facility] Glucose 193(H) 70 - 100 mg/dL 10/18/2025 6:05 AM [facility] Calcium 7.8(L) 8.6 - 10.3 mg/dL 10/18/2025 6:05 AM [facility] Phosphorus 3.0 2.1 - 4.7 mg/dL 10/18/2025 6:05 AM [facility] Albumin 2.2(L) 3.5 - 5.7 g/dL 10/18/2025 6:05 AM [facility] Osmolality, Calculated 311(H) 278 - 305 mOsm/kg 10/18/2025 6:05 AM [facility] EGFR >90 10/18/2025 6:05 AM [facility] Comment: As of 2022, the [...] M, Rebecca DC, Josue ND, Dee Dee LOMELI, Nazia LA, et al. A Unifying Approach for GFR Estimation: Recommendations of the NKF-ASN Task Force on Reassessing the inclusion of Race in Diagnosing Kidney Disease. Am J Kidney Dis. 2020. GFR is estimated using creatinine, age, and sex. Patient's values should be interpreted as a trend. Below 90 mL/min/1.73m2, the patient may have renal disease. For additional information: [email or web address] Plasma 10/18/2025 5:02 AM EST 10/18/2025 5:13 AM EST Aspen Parr MD LAB BLOOD ORDERABLES Final Resul t Performing Organization Address [facility] de Phone Number [facility] [address] [facility]. [address] * (ABNORMAL) Protime-INR (10/18/2025 5:02 AM EST) Protime 26.0(H) 12.1 - 15.1 seconds 10/18/2025 5:32 AM EST [facility] INR 2.2(H) 0.9 - 1.1 10/18/2025 5:32 AM EST [facility] Comment: RECOMMENDED THERAPEUTIC RANGES USING INR : Stable oral anticoagulant therapy: 2.0 - 3.0 Mechanical prosthetic heart valve: 2.5 - 3.5 Recurrent acute myocardial infarction: 2.5 - 3.5 Plasma 10/18/2025 5:02 AM EST 10/18/2025 5:13 AM EST Aspen Parr MD LAB BLOOD ORDERABLES Final Resul t Performing Organization Address [facility] de Phone Number [facility] [address] [facility]. [address] * (ABNORMAL) CBC (10/18/2025 5:02 AM EST) WBC 7.0 3.8 - 10.8 10E3/uL 10/18/2025 5:27 AM EST [facility] RBC 2.94(L) 4.20 - 5.80 10E6/uL 10/18/2025 5:27 AM EST [facility] Hemoglobin 9.6(L) 13.2 - 17.1 g/dL 10/18/2025 5:27 AM EST [facility] Hematocrit 27.6(L) 38.5 - 50.0 % 10/18/2025 5:27 AM EST [facility] MCV 94.0 80.0 - 100.0 fL 10/18/2025 5:27 AM EST [facility] MCH 32.6 27.0 - 33.0 pg 10/18/2025 5:27 AM EST [facility] MCHC 34.7 32.0 - 36.0 g/dL 10/18/2025 5:27 AM EST [facility] RDW 19.0(H) 11.0 - 15.0 % 10/18/2025 5:27 AM EST [facility] Platelets 36(L) 140 - 400 10E3/uL 10/18/2025 5:27 AM EST [facility] Comment:CNV MPV 8.1 7.5 - 11.5 fL 10/18/2025 5:27 AM EST [facility] Whole Blood 10/18/2025 5:02 AM EST 10/18/2025 5:13 AM EST Aspen Parr MD LAB BLOOD ORDERABLES Final Resul t [facility] [address] * (ABNORMAL) POC Glucose Monitoring Device (10/18/2025 5:00 AM EST) POC Glucose Monitoring Device 231(H) 70 - 100 mg/dL 10/18/2025 5:06 AM EST [facility] Blood 10/18/2025 5:00 AM EST 10/18/2025 5:06 AM EST Vani Winkler MD POINT OF CARE TEST ORDERABLE S Final Result [facility] [address] * (ABNORMAL) POC Glucose Monitoring Device (10/18/2025 4:05 AM EST) POC Glucose Monitoring Device 244(H) 70 - 100 mg/dL 10/18/2025 4:06 AM EST [facility] Blood 10/18/2025 4:05 AM EST 10/18/2025 4:06 AM EST Vani Winkler MD POINT OF CARE TEST ORDERABLE S Final Result Performing Organization Address City/[facility]/ZIP Co de Phone Number [facility] [address] [facility]. [address] * (ABNORMAL) POC Glucose Monitoring Device (10/18/2025 3:02 AM EST) POC Glucose Monitoring Device 246(H) 70 - 100 mg/dL 10/18/2025 3:07 AM EST [facility] Blood 10/18/2025 3:02 AM EST 10/18/2025 3:07 AM EST Vani Winkler MD POINT OF CARE TEST ORDERABLE S Final Result Performing Organization Address [facility] Co de Phone Number [facility] [address] [facility] * (ABNORMAL) POC Glucose Monitoring Device (10/18/2025 2:05 AM EST) POC Glucose Monitoring Device 249(H) 70 - 100 mg/dL 10/18/2025 2:14 AM EST [facility] Blood 10/18/2025 2:05 AM EST 10/18/2025 2:14 AM EST Vani Winkler MD POINT OF CARE TEST ORDERABLE S Final Result Performing Organization Address City/[facility]/ZIP Co de Phone Number [facility] [address] [facility] * (ABNORMAL) POC Glucose Monitoring Device (10/18/2025 1:06 AM EST) POC Glucose Monitoring Device 237(H) 70 - 100 mg/dL 10/18/2025 1:07 AM EST [facility] Blood 10/18/2025 1:06 AM EST 10/18/2025 1:07 AM EST Vani Winkler MD POINT OF CARE TEST ORDERABLE S Final Result Performing Organization Address City/[facility]/ZIP Co de Phone Number [facility] [address] * (ABNORMAL) POC Glucose Monitoring Device (10/17/2025 11:55 PM EST) POC Glucose Monitoring Device 227(H) 70 - 100 mg/dL 10/18/2025 12:06 AM EST [facility] Blood 10/17/2025 11:5 5 PM EST 10/18/2025 12:06 AM EST Vani Winkler MD POINT OF CARE TEST ORDERABLE S Final Result Performing Organization Address [facility] de Phone Number [facility] [address] [facility]. [address] * XR Portable Feeding Tube Check (10/17/2025 11:32 PM EST) Anatomical Region Laterality Modality Abdomen, Chest Radiographic Liseth ging 10/17/2025 11:2 9 PM EST Impressions 10/17/2025 11:50 PM EST IMPRESSION: 1. Endotracheal tube tip overlies the midthoracic trachea 2. Pulmonary artery catheter tip overlies the main right pulmonary artery. No radiographic pneumothorax. 3. Bibasilar atelectasis, left greater than right. 4. Enteric suction tube tip and sidehole overlie the gastric body Report Verified by: Oskar Kebede DO at 10/17/2025 11:50 PM EST Narrative 10/17/2025 11:50 PM EST EXAM: XR PORTABLE CHEST EXAM: XR PORTABLE FEEDING TUBE CHECK INDICATION: Line Placement TECHNIQUE: 1 view of the chest. AP view the upper abdomen. COMPARISON: 12 hours prior FINDINGS: Medical Devices: Right IJ pulmonary artery catheter tip overlies the main right pulmonary artery. Endotracheal tube tip overlies the midthoracic trachea approximately 4 cm above level the david. Enteric suction tube tip and sidehole overlie the gastric body. Right upper quadrant surgical drains Heart and Mediastinum: Unchanged. Lungs and Pleura: Left basilar volume loss. Bibasilar parenchymal opacities, left greater than right. No radiographic pneumothorax. Indeterminate for pleural fluid. Bones and Soft tissues: Unchanged. Procedure Note Joey Kebede, - 10/17/2025 EXAM: XR PORTABLE CHEST EXAM: XR PORTABLE FEEDING TUBE CHECK INDICATION: Line Placement TECHNIQUE: 1 view of the chest. AP view the upper abdomen. COMPARISON: 12 hours prior FINDINGS: Medical Devices: Right IJ pulmonary artery catheter tip overlies the mainright pulmonary artery. Endotracheal tube tip overlies the midthoracictrachea approximately 4 cm above level the david. Enteric suction tubetip and sidehole overlie the gastric body. Right upper quadrant surgicaldrains Heart and Mediastinum: Unchanged. Lungs and Pleura: Left basilar volume loss. Bibasilar parenchymalopacities, left greater than right. No radiographic pneumothorax.Indeterminate for pleural fluid. Bones and Soft tissues: Unchanged. IMPRESSION: 1. Endotracheal tube tip overlies the midthoracic trachea 2. Pulmonary artery catheter tip overlies the main right pulmonaryartery. No radiographic pneumothorax. 3. Bibasilar atelectasis, left greater than right. 4. Enteric suction tube tip and sidehole overlie the gastric body Report Verified by: Oskar Kebede DO at 10/17/2025 11:50 PM EST Duarte El MD IMG DIAGNOSTIC IMAGI NG ORDERABLES Final Result * X-ray Portable Chest (10/17/2025 11:28 PM EST) Anatomical Region Laterality Modality Chest Radiographic Liseth ging 10/17/2025 10:5 6 PM EST Impressions 10/17/2025 11:50 PM EST IMPRESSION: 1. Endotracheal tube tip overlies the midthoracic trachea 2. Pulmonary artery catheter tip overlies the main right pulmonary artery. No radiographic pneumothorax. 3. Bibasilar atelectasis, left greater than right. 4. Enteric suction tube tip and sidehole overlie the gastric body Report Verified by: Oskar Kebede DO at 10/17/2025 11:50 PM EST Narrative 10/17/2025 11:50 PM EST EXAM: XR PORTABLE CHEST EXAM: XR PORTABLE FEEDING TUBE CHECK INDICATION: Line Placement TECHNIQUE: 1 view of the chest. AP view the upper abdomen. COMPARISON: 12 hours prior FINDINGS: Medical Devices: Right IJ pulmonary artery catheter tip overlies the main right pulmonary artery. Endotracheal tube tip overlies the midthoracic trachea approximately 4 cm above level the david. Enteric suction tube tip and sidehole overlie the gastric body. Right upper quadrant surgical drains Heart and Mediastinum: Unchanged. Lungs and Pleura: Left basilar volume loss. Bibasilar parenchymal opacities, left greater than right. No radiographic pneumothorax. Indeterminate for pleural fluid. Bones and Soft tissues: Unchanged. Procedure Note Joey Kebede DO - 10/17/2025 EXAM: XR PORTABLE CHEST EXAM: XR PORTABLE FEEDING TUBE CHECK INDICATION: Line Placement TECHNIQUE: 1 view of the chest. AP view the upper abdomen. COMPARISON: 12 hours prior FINDINGS: Medical Devices: Right IJ pulmonary artery catheter tip overlies the mainright pulmonary artery. Endotracheal tube tip overlies the midthoracictrachea approximately 4 cm above level the david. Enteric suction tubetip and sidehole overlie the gastric body. Right upper quadrant surgicaldrains Heart and Mediastinum: Unchanged. Lungs and Pleura: Left basilar volume loss. Bibasilar parenchymalopacities, left greater than right. No radiographic pneumothorax.Indeterminate for pleural fluid. Bones and Soft tissues: Unchanged. IMPRESSION: 1. Endotracheal tube tip overlies the midthoracic trachea 2. Pulmonary artery catheter tip overlies the main right pulmonaryartery. No radiographic pneumothorax. 3. Bibasilar atelectasis, left greater than right. 4. Enteric suction tube tip and sidehole overlie the gastric body Report Verified by: Oskar Kebede DO at 10/17/2025 11:50 PM EST us Aspen Parr MD [facility] DIAGNOSTIC IMAGING ORDERABLE S Final Result * Calcium Free, Serum (10/17/2025 10:50 PM EST) Free Calcium, Ser 4.76 4.40 - 5.40 mg/dL 10/17/2025 11:15 PM EST [facility] Comment:Free calcium levels vary inversely with pH by approximately 5% for each 0.1 unit of pH change. Assay results have been normalized to pH = 7.40. Serum 10/17/2025 10:5 0 PM EST 10/17/2025 10:55 PM EST Narrative [facility] - 10/17/2025 11:15 PM EST This test has been developed and its performance characteristics determined by [facility] which is certified under the Clinical Laboratory Improvement Amendment of 1988 (CLIA-88) to perform high complexity testing. The test has not been cleared or approved by the US Food and Drug Administration (FDA). The FDA has determined that such clearance is not necessary. The test should be used for clinical purposes and is not regarded as investigational. us Duarte El MD LAB BLOOD ORDERABLES Final Result [facility] [address] [place], [place] [address] * (ABNORMAL) TEG-Standard Global Hemostasis (Rapid TEG with Heparin Effect, Contains a Baseline TEG) (10/17/2025 10:50 PM EST) [facility] Citrated Kaolin Reaction Time (TEGHEPARINASE) 12.7(H) 4.6 - 9.1 minutes 10/18/2025 12:03 AM EST [facility] Citrated Rapid Teg Maximum Amplitude (TEGHEPARINASE) 47.8(L) 52.0 - 70.0 mm 10/18/2025 12:03 AM EST [facility] Citrated Functional Fibrinogen Maximum Amplitude (TEGHEPARINASE) 16.8 15.0 - 32.0 mm 10/18/2025 12:03 AM EST [facility] Citrated Kaolin W/Heparinase Reaction Time (TEGHEPARINASE) 11.0(H) 4.3 - 8.3 minutes 10/18/2025 12:03 AM EST [facility] Citrated Kaolin K-Time (TEGHEPARINASE) 4.9(H) 0.8 - 2.1 minutes 10/18/2025 12:03 AM EST [facility] Citrated Kaolin Angle (TEGHEPARINASE) 40.0(L) 63.0 - 78.0 degrees 10/18/2025 12:03 AM EST [facility] Citrated Kaolin Maximum Amplitude (TEGHEPARINASE) 45.2(L) 52.0 - 69.0 mm 10/18/2025 12:03 AM EST [facility] Citrated Functional Fibrinogen- Fibrinogen Level (TEGHEPARINASE) 306.6 278.0 - 581.0 mg/dL 10/18/2025 12:03 AM EST [facility] Whole Blood (Citrate) 10/17/2025 10:50 PM EST 10/17/2025 10:55 PM EST us Aspen Parr MD LAB BLOOD ORDERABLES Final Resul t [facility] [address] [facility] * Lactic Acid (10/17/2025 10:50 PM EST) Lactate 1.1 0.5 - 2.2 mmol/L 10/17/2025 11:51 PM EST [facility] Plasma 10/17/2025 10:5 0 PM EST 10/17/2025 10:55 PM EST us Aspen Parr MD LAB BLOOD ORDERABLES Final Resul t Performing Organization Address City/[facility] Co de Phone Number [facility] [address] [place] [address]. [address] * Fibrinogen (10/17/2025 10:50 PM EST) Fibrinogen 253 218 - 406 mg/dL 10/17/2025 11:06 PM EST [facility] Plasma 10/17/2025 10:5 0 PM EST 10/17/2025 10:55 PM EST Aspen Parr MD LAB BLOOD ORDERABLES Final Resul t Performing Organization Address City/[facility] Co de Phone Number [facility] [address] [place] [address] * (ABNORMAL) Protime-INR (10/17/2025 10:50 PM EST) Protime 25.2(H) 12.1 - 15.1 seconds 10/17/2025 11:06 PM EST [facility] INR 2.1(H) 0.9 - 1.1 10/17/2025 11:06 PM EST [facility] Comment: RECOMMENDED THERAPEUTIC RANGES USING INR : Stable oral anticoagulant therapy: 2.0 - 3.0 Mechanical prosthetic heart valve: 2.5 - 3.5 Recurrent acute myocardial infarction: 2.5 - 3.5 Plasma 10/17/2025 10:5 0 PM EST 10/17/2025 10:55 PM EST us Aspen Parr MD LAB BLOOD ORDERABLES Final Resul t [facility] [address] [place] [address], [facility] * (ABNORMAL) Blood gas, arterial (10/17/2025 10:50 PM EST) O2 Sat, Arterial 100 10/17/2025 11:00 PM [facility] FIO2 80 fio2 10/17/2025 11:00 PM [facility] pH, Arterial 7.38 7.35 - 7.45 10/17/2025 11:00 PM [facility] pCO2, Arterial 41 35 - 45 mm Hg 10/17/2025 11:00 PM [facility] pO2, Arterial 216(H) 80 - 100 mm Hg 10/17/2025 11:00 PM [facility] HCO3, Arterial 24 22 - 26 mmol/L 10/17/2025 11:00 PM [facility] CO2 Content,Arteri al 26 23 - 27 mmol/L 10/17/2025 11:00 PM [facility] Base Excess, Arterial -0.8 -2.0 - 3.0 mmol/L 10/17/2025 11:00 PM [facility] %HBO2, Arterial 95.2 95.0 - 98.0 % 10/17/2025 11:00 PM [facility] Carboxyhemoglo bin, Arterial 3.3 % 10/17/2025 11:00 PM EST [facility] Comment: CARBOXYHEMOGLOBIN (CO) REFERENCE RANGES: Non-Smokers: <2 % Smokers: <8 % TOXIC: >20 % Methemoglobin, Arterial 1.6(H) 0.0 - 1.5 % 10/17/2025 11:00 PM EST [facility] Blood, Arterial 10/17/2025 1 0:50 PM EST 10/17/2025 10:55 PM EST Aspen Parr MD LAB BLOOD ORDERABLES Final Resul t Performing Organization Address City/[facility]/ZIP Co de Phone Number [facility] [address] * Magnesium (10/17/2025 10:50 PM EST) Magnesium 1.8 1.5 - 2.5 mg/dL 10/18/2025 12:13 AM EST [facility] Plasma 10/17/2025 10:5 0 PM EST 10/17/2025 10:55 PM EST Aspen Parr MD LAB BLOOD ORDERABLES Final Resul t Performing Organization Address City/[facility] Co de Phone Number [facility] [address] * (ABNORMAL) Hepatic Function Panel (10/17/2025 10:50 PM EST) Total Bilirubin 4.5(H) 0.0 - 1.5 mg/dL 10/18/2025 12:13 AM EST [facility] Bilirubin, Direct 3.22(H) 0.00 - 0.40 mg/dL 10/18/2025 12:13 AM EST [facility] AST 3,332(H) 13 - 39 U/L 10/18/2025 12:13 AM EST [facility] ALT 1141(H) 7 - 52 U/L 10/18/2025 12:13 AM EST [facility] Alkaline Phosphatase 63 36 - 125 U/L 10/18/2025 12:13 AM EST [facility] Total Protein 4.0(L) 6.4 - 8.9 g/dL 10/18/2025 12:13 AM EST [facility] Albumin 2.2(L) 3.5 - 5.7 g/dL 10/18/2025 12:13 AM EST [facility] Bilirubin, Indirect 1.28(H) 0.00 - 1.10 mg/dL 10/18/2025 12:13 AM EST [facility] Plasma 10/17/2025 10:5 0 PM EST 10/17/2025 10:55 PM EST us Aspen Parr MD LAB BLOOD ORDERABLES Final Resul t [facility] [address] [place], [place] [address] * (ABNORMAL) Renal Function Panel w/EGFR (10/17/2025 10:50 PM EST) Sodium 145 133 - 146 mmol/L 10/18/2025 12:13 AM EST [facility] Potassium 3.7 3.5 - 5.3 mmol/L 10/18/2025 12:13 AM EST [facility] Chloride 110 98 - 110 mmol/L 10/18/2025 12:13 AM [facility] CO2 27 21 - 33 mmol/L 10/18/2025 12:13 AM EST [facility] Comment:High lactate dehydro genase concentrations in patient samples may cause falsely increased bicarbonate results. If markedly elevated LDH is observed or suspected, please assess results in conjunction with patient`s clinical presentation. In cases of discrepant results, consider evaluating CO2 in with a blood gas order. Anion Gap 8 3 - 16 mmol/L 10/18/2025 12:13 AM EST [facility] BUN 17 7 - 25 mg/dL 10/18/2025 12:13 AM EST [facility] Creatinine 0.79 0.60 - 1.30 mg/dL 10/18/2025 12:13 AM [facility] Glucose 225(H) 70 - 100 mg/dL 10/18/2025 12:13 AM EST [facility] Calcium 8.2(L) 8.6 - 10.3 mg/dL 10/18/2025 12:13 AM [facility] Phosphorus 3.9 2.1 - 4.7 mg/dL 10/18/2025 12:13 AM EST [facility] Albumin 2.2(L) 3.5 - 5.7 g/dL 10/18/2025 12:13 AM EST [facility] Osmolality, Calculated 309(H) 278 - 305 mOsm/kg 10/18/2025 12:13 AM EST [facility] EGFR >90 10/18/2025 12:13 AM EST [facility] Comment: As of 2022, the [...] renal disease. For additional information: www.[email or web address] Plasma 10/17/2025 10:5 0 PM EST 10/17/2025 10:55 PM EST us Aspen Parr MD LAB BLOOD ORDERABLES Final Resul t Performing Organization Address City/State/[facility] Co de Phone Number [facility] [address] * (ABNORMAL) CBC (10/17/2025 10:50 PM EST) WBC 5.8 3.8 - 10.8 10E3/uL 10/17/2025 11:03 PM EST [facility] RBC 2.93(L) 4.20 - 5.80 10E6/uL 10/17/2025 11:03 PM EST [facility] Hemoglobin 9.5(L) 13.2 - 17.1 g/dL 10/17/2025 11:03 PM EST [facility] Hematocrit 27.5(L) 38.5 - 50.0 % 10/17/2025 11:03 PM EST [facility] MCV 93.9 80.0 - 100.0 fL 10/17/2025 11:03 PM EST [facility] MCH 32.6 27.0 - 33.0 pg 10/17/2025 11:03 PM EST [facility] MCHC 34.7 32.0 - 36.0 g/dL 10/17/2025 11:03 PM EST [facility] RDW 18.1(H) 11.0 - 15.0 % 10/17/2025 11:03 PM EST [facility] Platelets 52(L) 140 - 400 10E3/uL 10/17/2025 11:03 PM EST [facility] MPV 7.1(L) 7.5 - 11.5 fL 10/17/2025 11:03 PM EST [facility] Whole Blood 10/17/2025 10:5 0 PM EST 10/17/2025 10:55 PM EST Aspen Parr MD LAB BLOOD ORDERABLES Final Resul t [facility] [address] * (ABNORMAL) POC Glucose Monitoring Device (10/17/2025 10:47 PM EST) POC Glucose Monitoring Device 234(H) 70 - 100 mg/dL 10/17/2025 10:48 PM EST [facility] Blood 10/17/2025 10:4 7 PM EST 10/17/2025 10:47 PM EST Vani Winkler MD POINT OF CARE TEST ORDERABLE S Final Result [facility] [address] * POC Sample Type (10/17/2025 9:25 PM EST) POC Sample Type Arterial 10/17/2025 9:51 PM EST [facility] Blood, Arterial 10/17/2025 9 :25 PM EST 10/17/2025 9:51 PM EST Vani Winkler MD POINT OF CARE TEST ORDERABLE S Final Result [facility] [address] [facility] * POC Anion Gap (10/17/2025 9:25 PM EST) POC Anion Gap, Arterial 9 3 - 16 mmol/L 10/17/2025 9:51 PM EST [facility] Blood, Arterial 10/17/2025 9 :25 PM EST 10/17/2025 9:51 PM EST Vani Winkler MD POINT OF CARE TEST ORDERABLE S Final Result Performing Organization Address City/[facility]/ZIP Co de Phone Number [facility] [address] [facility] * (ABNORMAL) POC Chloride (10/17/2025 9:25 PM EST) POC Chloride 111(H) 98 - 110 mmol/L 10/17/2025 9:51 PM EST [facility] Blood, Arterial 10/17/2025 9 :25 PM EST 10/17/2025 9:51 PM EST Vani Winkler MD POINT OF CARE TEST ORDERABLE S Final Result [facility] [address] [facility] * (ABNORMAL) POC Hemoglobin (10/17/2025 9:25 PM EST) POC Hemoglobin 9.0(L) 14.0 - 18.0 g/dL 10/17/2025 9:51 PM EST [facility] Blood, Arterial 10/17/2025 9 :25 PM EST 10/17/2025 9:51 PM EST Vani Winkler MD POINT OF CARE TEST ORDERABLE S Final Result Performing Organization Address City/[facility]/ZIP Co de Phone Number [facility] [address] * (ABNORMAL) POC hematocrit (10/17/2025 9:25 PM EST) POC Hematocrit 26.0(L) 40 - 52 % 10/17/2025 9:51 PM EST [facility] Blood, Arterial 10/17/2025 9 :25 PM EST 10/17/2025 9:51 PM EST us Vani Winkler MD POINT OF CARE TEST ORDERABLE S Final Result Performing Organization Address [facility] Co de Phone Number [facility] [address] [facility] * POC Lactate (10/17/2025 9:25 PM EST) POC Lactate 1.50 0.50 - 2.20 mmol/L 10/17/2025 9:51 PM EST [facility] Blood, Arterial 10/17/2025 9 :25 PM EST 10/17/2025 9:51 PM EST Vani Winkler MD POINT OF CARE TEST ORDERABLE S Final Result Performing Organization Address City/[facility]/ZIP Co de Phone Number [facility] [address] [facility] * (ABNORMAL) POC Glucose (10/17/2025 9:25 PM EST) POC Glucose, Arterial 227(H) 70 - 100 mg/dL 10/17/2025 9:51 PM EST [facility] Blood, Arterial 10/17/2025 9 :25 PM EST 10/17/2025 9:51 PM EST Vani Winkler MD POINT OF CARE TEST ORDERABLE S Final Result [facility] [address] * POC Ionized Calcium (10/17/2025 9:25 PM EST) POC Ionized Calcium 4.90 4.50 - 5.30 mg/dL 10/17/2025 9:51 PM EST [facility] Blood, Arterial 10/17/2025 9 :25 PM EST 10/17/2025 9:51 PM EST Vani Winkler MD POINT OF CARE TEST ORDERABLE S Final Result Performing Organization Address City/[facility]/ZIP Co de Phone Number [facility] [address] * POC Potassium (10/17/2025 9:25 PM EST) POC Potassium 3.7 3.5 - 5.3 mmol/L 10/17/2025 9:51 PM EST [facility] Blood, Arterial 10/17/2025 9 :25 PM EST 10/17/2025 9:51 PM EST Vani Winkler MD POINT OF CARE TEST ORDERABLE S Final Result Performing Organization Address City/[facility]/ZIP Co de Phone Number [facility] [address] [place] [facility]. [address] * POC Sodium (10/17/2025 9:25 PM EST) POC Sodium 142 136 - 146 mmol/L 10/17/2025 9:51 PM EST [facility] Blood, Arterial 10/17/2025 9 :25 PM EST 10/17/2025 9:51 PM EST Vani Winkler MD POINT OF CARE TEST ORDERABLE S Final Result [facility] [address] * POC TCO2 (10/17/2025 9:25 PM EST) POC TCO2, Arterial 23 23 - 27 mmol/L 10/17/2025 9:51 PM EST [facility] Blood, Arterial 10/17/2025 9 :25 PM EST 10/17/2025 9:51 PM EST Vani Winkler MD POINT OF CARE TEST ORDERABLE S Final Result [facility] [address] [facility] [address] * (ABNORMAL) POC O2 SAT (10/17/2025 9:25 PM EST) POC O2 Saturation, Arterial 99(H) 95 - 98 % 10/17/2025 9:51 PM EST [facility] Blood, Arterial 10/17/2025 9 :25 PM EST 10/17/2025 9:51 PM EST Vani Winkler MD POINT OF CARE TEST ORDERABLE S Final Result Performing Organization Address City/[facility]/ZIP Co de Phone Number [facility] [address] [facility]. [address] * (ABNORMAL) POC Base Excess (10/17/2025 9:25 PM EST) POC Base Excess, Arterial -3(L) -2 - 3 mmol/L 10/17/2025 9:51 PM EST [facility] Blood, Arterial 10/17/2025 9 :25 PM EST 10/17/2025 9:51 PM EST Vani Winkler MD POINT OF CARE TEST ORDERABLE S Final Result [facility] [address] [facility] * POC HCO3 (10/17/2025 9:25 PM EST) POC HCO3, Arterial 22 22 - 26 mmol/L 10/17/2025 9:51 PM EST [facility] Blood, Arterial 10/17/2025 9 :25 PM EST 10/17/2025 9:51 PM EST Vani Winkler MD POINT OF CARE TEST ORDERABLE S Final Result [facility] [address] [facility]. [address] * (ABNORMAL) POC PO2 (10/17/2025 9:25 PM EST) POC pO2, Arterial 161(H) 80 - 100 mm Hg 10/17/2025 9:51 PM EST [facility] Blood, Arterial 10/17/2025 9 :25 PM EST 10/17/2025 9:51 PM EST Vani Winkler MD POINT OF CARE TEST ORDERABLE S Final Result [facility] [address] [facility] * POC PCO2 (10/17/2025 9:25 PM EST) POC pCO2, Arterial 38 35 - 45 mm Hg 10/17/2025 9:51 PM EST [facility] Blood, Arterial 10/17/2025 9 :25 PM EST 10/17/2025 9:51 PM EST Vani Winkler MD POINT OF CARE TEST ORDERABLE S Final Result [facility] [address] [facility] * POC pH (10/17/2025 9:25 PM EST) POC pH, Arterial 7.37 7.35 - 7.45 10/17/2025 9:51 PM EST [facility] Blood, Arterial 10/17/2025 9 :25 PM EST 10/17/2025 9:51 PM EST Result [facility] Vani Winkler MD POINT OF CARE TEST ORDERABLE S Final Result Performing Organization Address [facility] Co de Phone Number [facility] [address] [facility] * (ABNORMAL) POC INR (10/17/2025 9:24 PM EST) [facility] Prothrombin Time INR, POC 2.3(H) 0.8 - 1.4 10/18/2025 12:08 AM EST [facility] Comment: Test results may vary using different testing platforms. Serial result monitoring should be performed using the same methodology. RECOMMENDED THERAPEUTIC RANGES USING INR : Stable oral anticoagulant therapy: 2.0 - 3.0 Mechanical prosthetic heart valve: 2.5 - 3.5 Recurrent acute myocardial infarction: 2.5 - 3.5 Blood 10/17/2025 9:24 PM EST 10/18/2025 12:07 AM EST Vani Winkler MD POINT OF CARE TEST ORDERABLE S Final Result Performing Organization Address City/[facility] Co de Phone Number [facility] [address] * Transfuse Fresh Frozen Plasma (10/17/2025 9:17 PM EST) Result [facility] Shannan Salas MD NURSING TREATMENT ORDERABLES - BLOOD ADMIN Final Result * Transfuse Platelets (10/17/2025 9:01 PM EST) Slade Munoz MD NURSING TREATMENT ORDERABLES - B LOOD ADMIN Final Result * Transfuse Cryoprecipitate (10/17/2025 8:49 PM EST) Result [facility] Slade Munoz MD NURSING TREATMENT ORDERABLES - B LOOD ADMIN Final Result * Transfuse Cryoprecipitate (10/17/2025 8:46 PM EST) Result [facility] Slade Munoz MD NURSING TREATMENT ORDERABLES - B LOOD ADMIN Final Result * (ABNORMAL) TEG-Bypass/ECMO/Liver HN (Factor function, Platelet/Fibrin Clot Strength w/Clot Breakdown, Heparinase In All Channels) (10/17/2025 8:31 PM EST) Citrated Kaolin Reaction Time (TEGECMOLIVER) 9.7(H) 4.6 - 9.1 minutes 10/17/2025 10:13 PM EST [facility] Citrated Kaolin W/Heparinase Reaction Time (TEGECMOLIVER) 3.4(L) 4.3 - 8.3 minutes 10/17/2025 10:13 PM EST [facility] Citrated Kaolin Maximum Amplitude (TEGECMOLIVER) 45.4(L) 52.0 - 69.0 mm 10/17/2025 10:13 PM EST [facility] Citrated Functional Fibrinogen W/Heparinase Maximum Amplitude(TEGEC MOLIVER) 18.0 15.0 - 34.0 mm 10/17/2025 10:13 PM EST [facility] Citrated Rapid Teg W/Heparinase Maximum Amplitude (TEGECMOLIVER) 40.5(L) 53.0 - 69.0 mm 10/17/2025 10:13 PM EST [facility] Citrated Kaolin w/Heparinase Percent Lysis (TEGECMOLIVER) 0.0 0.0 - 3.2 % 10/17/2025 10:13 PM EST [facility] Whole Blood (Citrate) 10/17/2025 8:31 PM EST 10/17/2025 8:40 PM EST Oskar Torres MD LAB BLOOD ORDERABLES Final Re sult [facility] [address] * (ABNORMAL) Fibrinogen (10/17/2025 8:31 PM EST) Fibrinogen 157(L) 218 - 406 mg/dL 10/17/2025 9:00 PM EST [facility] Plasma 10/17/2025 8:31 PM EST 10/17/2025 8:40 PM EST Oskar Torres MD LAB BLOOD ORDERABLES Final Re sult [facility] [address] * POC Sample Type (10/17/2025 8:22 PM EST) POC Sample Type Arterial 10/17/2025 8:24 PM EST [facility] Blood, Arterial 10/17/2025 8 :22 PM EST 10/17/2025 8:24 PM EST Vani Winkler MD POINT OF CARE TEST ORDERABLE S Final Result Performing Organization Address City/[facility]/ZIP Co de Phone Number [facility] [address] * POC Anion Gap (10/17/2025 8:22 PM EST) POC Anion Gap, Arterial 11 3 - 16 mmol/L 10/17/2025 8:24 PM EST [facility] Blood, Arterial 10/17/2025 8 :22 PM EST 10/17/2025 8:24 PM EST Vani Winkler MD POINT OF CARE TEST ORDERABLE S Final Result Performing Organization Address City/[facility]/ZIP Co de Phone Number [facility] [address] * POC Chloride (10/17/2025 8:22 PM EST) POC Chloride 108 98 - 110 mmol/L 10/17/2025 8:24 PM EST [facility] Blood, Arterial 10/17/2025 8 :22 PM EST 10/17/2025 8:24 PM EST Vani Winkler MD POINT OF CARE TEST ORDERABLE S Final Result [facility] [address] * (ABNORMAL) POC Hemoglobin (10/17/2025 8:22 PM EST) POC Hemoglobin 9.5(L) 14.0 - 18.0 g/dL 10/17/2025 8:24 PM EST [facility] Blood, Arterial 10/17/2025 8 :22 PM EST 10/17/2025 8:24 PM EST Vani Winkler MD POINT OF CARE TEST ORDERABLE S Final Result [facility] [address] [facility] * (ABNORMAL) POC hematocrit (10/17/2025 8:22 PM EST) [facility] POC Hematocrit 28.0(L) 40 - 52 % 10/17/2025 8:24 PM EST [facility] Blood, Arterial 10/17/2025 8 :22 PM EST 10/17/2025 8:24 PM EST Vani Winkler MD POINT OF CARE TEST ORDERABLE S Final Result Performing Organization Address City/[facility]/ZIP Co de Phone Number [facility] [address] [facility] * POC Lactate (10/17/2025 8:22 PM EST) Pathologist [facility] POC Lactate 1.62 0.50 - 2.20 mmol/L 10/17/2025 8:24 PM EST [facility] Blood, Arterial 10/17/2025 8 :22 PM EST 10/17/2025 8:24 PM EST Vani Winkler MD POINT OF CARE TEST ORDERABLE S Final Result [facility] [address] [facility] * (ABNORMAL) POC Glucose (10/17/2025 8:22 PM EST) POC Glucose, Arterial 218(H) 70 - 100 mg/dL 10/17/2025 8:24 PM EST [facility] Blood, Arterial 10/17/2025 8 :22 PM EST 10/17/2025 8:24 PM EST Vani Winkler MD POINT OF CARE TEST ORDERABLE S Final Result [facility] [address] [facility]. [address] * POC Ionized Calcium (10/17/2025 8:22 PM EST) Pathologist [facility] POC Ionized Calcium 4.80 4.50 - 5.30 mg/dL 10/17/2025 8:24 PM EST [facility] Blood, Arterial 10/17/2025 8 :22 PM EST 10/17/2025 8:24 PM EST Vani Winkler MD POINT OF CARE TEST ORDERABLE S Final Result Performing Organization Address City/[facility]/ZIP Co de Phone Number [facility] [address] [place] [facility]. [address] * POC Potassium (10/17/2025 8:22 PM EST) [facility] POC Potassium 3.8 3.5 - 5.3 mmol/L 10/17/2025 8:24 PM EST [facility] Blood, Arterial 10/17/2025 8 :22 PM EST 10/17/2025 8:24 PM EST Vani Winkler MD POINT OF CARE TEST ORDERABLE S Final Result [facility] [address] [facility]. [address] * POC Sodium (10/17/2025 8:22 PM EST) Pathologist [facility] POC Sodium 143 136 - 146 mmol/L 10/17/2025 8:24 PM EST [facility] Blood, Arterial 10/17/2025 8 :22 PM EST 10/17/2025 8:24 PM EST Vani Winkler MD POINT OF CARE TEST ORDERABLE S Final Result [facility] [address] [facility]. [address] * POC TCO2 (10/17/2025 8:22 PM EST) POC TCO2, Arterial 25 23 - 27 mmol/L 10/17/2025 8:24 PM EST [facility] Blood, Arterial 10/17/2025 8 :22 PM EST 10/17/2025 8:24 PM EST Vani Winkler MD POINT OF CARE TEST ORDERABLE S Final Result Performing Organization Address City/[facility]/ZIP Co de Phone Number [facility] [address] [place] [facility]. [address] * (ABNORMAL) POC O2 SAT (10/17/2025 8:22 PM EST) POC O2 Saturation, Arterial 99(H) 95 - 98 % 10/17/2025 8:24 PM EST [facility] Blood, Arterial 10/17/2025 8 :22 PM EST 10/17/2025 8:24 PM EST Vani Winkler MD POINT OF CARE TEST ORDERABLE S Final Result [facility] [address] [facility]. [address] * POC Base Excess (10/17/2025 8:22 PM EST) POC Base Excess, Arterial -1 -2 - 3 mmol/L 10/17/2025 8:24 PM EST [facility] Blood, Arterial 10/17/2025 8 :22 PM EST 10/17/2025 8:24 PM EST us Vani Winkler MD POINT OF CARE TEST ORDERABLE S Final Result Performing Organization Address City/[facility]/ZIP Co de Phone Number [facility] [address] [facility]. [address] * POC HCO3 (10/17/2025 8:22 PM EST) POC HCO3, Arterial 24 22 - 26 mmol/L 10/17/2025 8:24 PM EST [facility] Blood, Arterial 10/17/2025 8 :22 PM EST 10/17/2025 8:24 PM EST us Vani Winkler MD POINT OF CARE TEST ORDERABLE S Final Result Performing Organization Address [facility] Co de Phone Number [facility] [address] [facility]. [address] * (ABNORMAL) POC PO2 (10/17/2025 8:22 PM EST) POC pO2, Arterial 131(H) 80 - 100 mm Hg 10/17/2025 8:24 PM EST [facility] Blood, Arterial 10/17/2025 8 :22 PM EST 10/17/2025 8:24 PM EST us Vani Winkler MD POINT OF CARE TEST ORDERABLE S Final Result Performing Organization Address City/[facility] Co de Phone Number [facility] [address] [place] [facility]. [address] * POC PCO2 (10/17/2025 8:22 PM EST) POC pCO2, Arterial 41 35 - 45 mm Hg 10/17/2025 8:24 PM EST [facility] Blood, Arterial 10/17/2025 8 :22 PM EST 10/17/2025 8:24 PM EST us Vani Winkler MD POINT OF CARE TEST ORDERABLE S Final Result [facility] [address] * POC pH (10/17/2025 8:22 PM EST) POC pH, Arterial 7.37 7.35 - 7.45 10/17/2025 8:24 PM EST [facility] Blood, Arterial 10/17/2025 8 :22 PM EST 10/17/2025 8:24 PM EST Result [facility] Vani Winkler MD POINT OF CARE TEST ORDERABLE S Final Result [facility] [address] [facility]. [address] * (ABNORMAL) POC INR (10/17/2025 8:21 PM EST) Prothrombin Time INR, POC 2.9(H) 0.8 - 1.4 10/18/2025 12:08 AM EST [facility] Comment: Test results may vary using different testing platforms. Serial result monitoring should be performed using the same methodology. RECOMMENDED THERAPEUTIC RANGES USING INR : Stable oral anticoagulant therapy: 2.0 - 3.0 Mechanical prosthetic heart valve: 2.5 - 3.5 Recurrent acute myocardial infarction: 2.5 - 3.5 Blood 10/17/2025 8:21 PM EST 10/18/2025 12:07 AM EST us Vani Winkler MD POINT OF CARE TEST ORDERABLE S Final Result [facility] [address] * Transfuse Fresh Frozen Plasma (10/17/2025 8:05 PM EST) Result Neto Salas MD NURSING TREATMENT ORDERABLES - BLOOD ADMIN Final Result * Transfuse Fresh Frozen Plasma (10/17/2025 8:05 PM EST) Result Neto Salas MD NURSING TREATMENT ORDERABLES - BLOOD ADMIN Final Result * Transfuse Fresh Frozen Plasma (10/17/2025 7:39 PM EST) us Shannna Salas MD NURSING TREATMENT ORDERABLES - BLOOD ADMIN Final Result * Transfuse Fresh Frozen Plasma (10/17/2025 7:39 PM EST) us Shannan Salas MD NURSING TREATMENT ORDERABLES - BLOOD ADMIN Final Result * POC Sample Type (10/17/2025 7:26 PM EST) POC Sample Type Arterial 10/17/2025 7:30 PM EST [facility] Blood, Arterial 10/17/2025 7 :26 PM EST 10/17/2025 7:30 PM EST us Vani Winkler MD POINT OF CARE TEST ORDERABLE S Final Result Performing Organization Address [facility] Co de Phone Number [facility] [address] [place] [address]. [address] * POC Anion Gap (10/17/2025 7:26 PM EST) POC Anion Gap, Arterial 11 3 - 16 mmol/L 10/17/2025 7:30 PM EST [facility] Blood, Arterial 10/17/2025 7 :26 PM EST 10/17/2025 7:30 PM EST Result [facility] us Vani Winkler MD POINT OF CARE TEST ORDERABLE S Final Result Performing Organization Address [facility] Co de Phone Number [facility] [address] [place] [address]. [address] * POC Chloride (10/17/2025 7:26 PM EST) POC Chloride 109 98 - 110 mmol/L 10/17/2025 7:30 PM EST [facility] Blood, Arterial 10/17/2025 7 :26 PM EST 10/17/2025 7:30 PM EST us Vani Winkler MD POINT OF CARE TEST ORDERABLE S Final Result [facility] [address] * (ABNORMAL) POC Hemoglobin (10/17/2025 7:26 PM EST) POC Hemoglobin 8.6(L) 14.0 - 18.0 g/dL 10/17/2025 7:30 PM EST [facility] Blood, Arterial 10/17/2025 7 :26 PM EST 10/17/2025 7:30 PM EST Vani Winkler MD POINT OF CARE TEST ORDERABLE S Final Result Performing Organization Address [facility] Co de Phone Number [facility] [address] * (ABNORMAL) POC hematocrit (10/17/2025 7:26 PM EST) POC Hematocrit 25.0(L) 40 - 52 % 10/17/2025 7:30 PM EST [facility] Blood, Arterial 10/17/2025 7 :26 PM EST 10/17/2025 7:30 PM EST Vani Winkler MD POINT OF CARE TEST ORDERABLE S Final Result Performing Organization Address [facility]/ZIP Co de Phone Number [facility] [address] * POC Lactate (10/17/2025 7:26 PM EST) POC Lactate 2.16 0.50 - 2.20 mmol/L 10/17/2025 7:30 PM EST [facility] Blood, Arterial 10/17/2025 7 :26 PM EST 10/17/2025 7:30 PM EST Vani Winkler MD POINT OF CARE TEST ORDERABLE S Final Result Performing Organization Address City/[facility]/ZIP Co de Phone Number [facility] [address] * (ABNORMAL) POC Glucose (10/17/2025 7:26 PM EST) POC Glucose, Arterial 207(H) 70 - 100 mg/dL 10/17/2025 7:30 PM EST [facility] Blood, Arterial 10/17/2025 7 :26 PM EST 10/17/2025 7:30 PM EST Vani Winkler MD POINT OF CARE TEST ORDERABLE S Final Result [facility] [address] * (ABNORMAL) POC Ionized Calcium (10/17/2025 7:26 PM EST) POC Ionized Calcium 5.40(H) 4.50 - 5.30 mg/dL 10/17/2025 7:30 PM EST [facility] Blood, Arterial 10/17/2025 7 :26 PM EST 10/17/2025 7:30 PM EST Vani Winkler MD POINT OF CARE TEST ORDERABLE S Final Result Performing Organization Address City/[facility]/ZIP Co de Phone Number [facility] [address] * POC Potassium (10/17/2025 7:26 PM EST) POC Potassium 3.9 3.5 - 5.3 mmol/L 10/17/2025 7:30 PM EST [facility] Blood, Arterial 10/17/2025 7 :26 PM EST 10/17/2025 7:30 PM EST Vani Winkler MD POINT OF CARE TEST ORDERABLE S Final Result [facility] [address] * POC Sodium (10/17/2025 7:26 PM EST) POC Sodium 143 136 - 146 mmol/L 10/17/2025 7:30 PM EST [facility] Blood, Arterial 10/17/2025 7 :26 PM EST 10/17/2025 7:30 PM EST Vani Winkler MD POINT OF CARE TEST ORDERABLE S Final Result [facility] [address] [facility] * POC TCO2 (10/17/2025 7:26 PM EST) POC TCO2, Arterial 24 23 - 27 mmol/L 10/17/2025 7:30 PM EST [facility] Blood, Arterial 10/17/2025 7 :26 PM EST 10/17/2025 7:30 PM EST Vani Winkler MD POINT OF CARE TEST ORDERABLE S Final Result Performing Organization Address City/[facility]/ZIP Co de Phone Number [facility] [address] [facility] * (ABNORMAL) POC O2 SAT (10/17/2025 7:26 PM EST) POC O2 Saturation, Arterial 99(H) 95 - 98 % 10/17/2025 7:30 PM EST [facility] Blood, Arterial 10/17/2025 7 :26 PM EST 10/17/2025 7:30 PM EST Vani Winkler MD POINT OF CARE TEST ORDERABLE S Final Result [facility] [address] [facility] * POC Base Excess (10/17/2025 7:26 PM EST) POC Base Excess, Arterial -2 -2 - 3 mmol/L 10/17/2025 7:30 PM EST [facility] Blood, Arterial 10/17/2025 7 :26 PM EST 10/17/2025 7:30 PM EST Vani Winkler MD POINT OF CARE TEST ORDERABLE S Final Result Performing Organization Address City/[facility]/ZIP Co de Phone Number [facility] [address] [place] [address]. [address] * POC HCO3 (10/17/2025 7:26 PM EST) POC HCO3, Arterial 23 22 - 26 mmol/L 10/17/2025 7:30 PM EST [facility] Blood, Arterial 10/17/2025 7 :26 PM EST 10/17/2025 7:30 PM EST Vani Winkler MD POINT OF CARE TEST ORDERABLE S Final Result Performing Organization Address City/[facility] Co de Phone Number [facility] [address] [facility] * (ABNORMAL) POC PO2 (10/17/2025 7:26 PM EST) POC pO2, Arterial 156(H) 80 - 100 mm Hg 10/17/2025 7:30 PM EST [facility] Blood, Arterial 10/17/2025 7 :26 PM EST 10/17/2025 7:30 PM EST Vani Winkler MD POINT OF CARE TEST ORDERABLE S Final Result Performing Organization Address City/[facility]/ZIP Co de Phone Number [facility] [address] [place] [address]. [address] * POC PCO2 (10/17/2025 7:26 PM EST) POC pCO2, Arterial 40 35 - 45 mm Hg 10/17/2025 7:30 PM EST [facility] Blood, Arterial 10/17/2025 7 :26 PM EST 10/17/2025 7:30 PM EST Result [facility] Vani Winkler MD POINT OF CARE TEST ORDERABLE S Final Result [facility] [address] * POC pH (10/17/2025 7:26 PM EST) POC pH, Arterial 7.37 7.35 - 7.45 10/17/2025 7:30 PM EST [facility] Blood, Arterial 10/17/2025 7 :26 PM EST 10/17/2025 7:30 PM EST Result [facility] Vani Winkler MD POINT OF CARE TEST ORDERABLE S Final Result Performing Organization Address [facility] Co de Phone Number [facility] [address] * (ABNORMAL) POC INR (10/17/2025 7:25 PM EST) Prothrombin Time INR, POC 5.9(HH) 0.8 - 1.4 10/18/2025 12:07 AM EST [facility] Comment: Test results may vary using different testing platforms. Serial result monitoring should be performed using the same methodology. RECOMMENDED THERAPEUTIC RANGES USING INR : Stable oral anticoagulant therapy: 2.0 - 3.0 Mechanical prosthetic heart valve: 2.5 - 3.5 Recurrent acute myocardial infarction: 2.5 - 3.5 Blood 10/17/2025 7:25 PM EST 10/18/2025 12:07 AM EST Result [facility] Vani Winkler MD POINT OF CARE TEST ORDERABLE S Final Result [facility] [address] * Transfuse Platelets (10/17/2025 7:03 PM EST) Result [facility] Slade Munoz MD NURSING TREATMENT ORDERABLES - B LOOD ADMIN Final Result * (ABNORMAL) TEG-Bypass/ECMO/Liver HN (Factor function, Platelet/Fibrin Clot Strength w/Clot Breakdown, Heparinase In All Channels) (10/17/2025 6:39 PM EST) Citrated Kaolin Reaction Time (TEGECMOLIVER) 7.1 4.6 - 9.1 minutes 10/17/2025 8:07 PM EST [facility] Citrated Kaolin W/Heparinase Reaction Time (TEGECMOLIVER) 2.5(L) 4.3 - 8.3 minutes 10/17/2025 8:07 PM EST [facility] Citrated Kaolin Maximum Amplitude (TEGECMOLIVER) 41.6(L) 52.0 - 69.0 mm 10/17/2025 8:07 PM EST [facility] Citrated Functional Fibrinogen W/Heparinase Maximum Amplitude(TEGEC MOLIVER) 20.9 15.0 - 34.0 mm 10/17/2025 8:07 PM EST [facility] Citrated Rapid Teg W/Heparinase Maximum Amplitude (TEGECMOLIVER) 30.9(L) 53.0 - 69.0 mm 10/17/2025 8:07 PM [facility] Citrated Kaolin w/Heparinase Percent Lysis (TEGECMOLIVER) 0.0 0.0 - 3.2 % 10/17/2025 8:07 PM [facility] Whole Blood (Citrate) 10/17/2025 6:39 PM EST 10/17/2025 6:45 PM EST Shannan Salas MD LAB BLOOD ORDERABLES Final R esult [facility] [address] * (ABNORMAL) CBC (10/17/2025 6:39 PM EST) WBC 4.8 3.8 - 10.8 10E3/uL 10/17/2025 6:54 PM EST [facility] RBC 3.19(L) 4.20 - 5.80 10E6/uL 10/17/2025 6:54 PM EST [facility] Hemoglobin 10.3(L) 13.2 - 17.1 g/dL 10/17/2025 6:54 PM EST [facility] Hematocrit 30.2(L) 38.5 - 50.0 % 10/17/2025 6:54 PM EST [facility] MCV 94.8 80.0 - 100.0 fL 10/17/2025 6:54 PM EST [facility] MCH 32.3 27.0 - 33.0 pg 10/17/2025 6:54 PM EST [facility] MCHC 34.1 32.0 - 36.0 g/dL 10/17/2025 6:54 PM EST [facility] RDW 17.8(H) 11.0 - 15.0 % 10/17/2025 6:54 PM EST [facility] Platelets 47(L) 140 - 400 10E3/uL 10/17/2025 6:54 PM EST [facility] Comment:CNV MPV 7.7 7.5 - 11.5 fL 10/17/2025 6:54 PM EST [facility] Whole Blood 10/17/2025 6:39 PM EST 10/17/2025 6:45 PM EST Shannan Salas MD LAB BLOOD ORDERABLES Final R esult [facility] [address] * (ABNORMAL) Protime-INR (10/17/2025 6:39 PM EST) Protime 69.5(HH) 12.1 - 15.1 seconds 10/17/2025 7:30 PM EST [facility] Comment:The critical result was called to, and read back by, licensed caregiver ROSALIND HAWK RN, AT 1930 INR 7.5(HH) 0.9 - 1.1 10/17/2025 7:30 PM EST [facility] Comment: RECOMMENDED THERAPEUTIC RANGES USING INR : Stable oral anticoagulant therapy: 2.0 - 3.0 Mechanical prosthetic heart valve: 2.5 - 3.5 Recurrent acute myocardial infarction: 2.5 - 3.5 The critical result was called to, and read back by, licensed caregiver ROSALIND HAWK RN, AT 1930 Plasma 10/17/2025 6:39 PM EST 10/17/2025 6:45 PM EST us Shannan Salas MD LAB BLOOD ORDERABLES Final R esult [facility] [address] [facility]. [address] * (ABNORMAL) Fibrinogen (10/17/2025 6:39 PM EST) Pathologist [facility] Fibrinogen 159(L) 218 - 406 mg/dL 10/17/2025 7:04 PM EST [facility] Plasma 10/17/2025 6:39 PM EST 10/17/2025 6:45 PM EST us Shannan Salas MD LAB BLOOD ORDERABLES Final R esult [facility] [address] [facility]. [address] * Transfuse Cryoprecipitate (10/17/2025 6:31 PM EST) Slade Munoz MD NURSING TREATMENT ORDERABLES - B LOOD ADMIN Final Result * POC Sample Type (10/17/2025 6:23 PM EST) [facility] POC Sample Type Arterial 10/17/2025 6:25 PM EST [facility] Blood, Arterial 10/17/2025 6 :23 PM EST 10/17/2025 6:25 PM EST Vani Winkler MD POINT OF CARE TEST ORDERABLE S Final Result [facility] [address] [place] [address]. [address] * POC Anion Gap (10/17/2025 6:23 PM EST) Pathologist [facility] POC Anion Gap, Arterial 13 3 - 16 mmol/L 10/17/2025 6:25 PM EST [facility] Blood, Arterial 10/17/2025 6 :23 PM EST 10/17/2025 6:25 PM EST Vani Winkler MD POINT OF CARE TEST ORDERABLE S Final Result [facility] [address] [facility]. [address] * POC Chloride (10/17/2025 6:23 PM EST) POC Chloride 110 98 - 110 mmol/L 10/17/2025 6:25 PM EST [facility] Blood, Arterial 10/17/2025 6 :23 PM EST 10/17/2025 6:25 PM EST Vani Winkler MD POINT OF CARE TEST ORDERABLE S Final Result Performing Organization Address City/[facility]/ZIP Co de Phone Number [facility] [address] [facility]. [address] * (ABNORMAL) POC Hemoglobin (10/17/2025 6:23 PM EST) Pathologist [facility] POC Hemoglobin 9.8(L) 14.0 - 18.0 g/dL 10/17/2025 6:25 PM EST [facility] Blood, Arterial 10/17/2025 6 :23 PM EST 10/17/2025 6:25 PM EST Vani Winkler MD POINT OF CARE TEST ORDERABLE S Final Result [facility] [address] [facility]. [address] * (ABNORMAL) POC hematocrit (10/17/2025 6:23 PM EST) Pathologist [facility] POC Hematocrit 29.0(L) 40 - 52 % 10/17/2025 6:25 PM EST [facility] Blood, Arterial 10/17/2025 6 :23 PM EST 10/17/2025 6:25 PM EST Vani Winkler MD POINT OF CARE TEST ORDERABLE S Final Result Performing Organization Address City/[facility]/ZIP Co de Phone Number [facility] [address] [place] [address]. [address] * (ABNORMAL) POC Lactate (10/17/2025 6:23 PM EST) POC Lactate 3.26(H) 0.50 - 2.20 mmol/L 10/17/2025 6:25 PM EST [facility] Blood, Arterial 10/17/2025 6 :23 PM EST 10/17/2025 6:25 PM EST Vani Winkler MD POINT OF CARE TEST ORDERABLE S Final Result Performing Organization Address [facility] Co de Phone Number [facility] [address] [place] [address]. [address] * (ABNORMAL) POC Glucose (10/17/2025 6:23 PM EST) POC Glucose, Arterial 170(H) 70 - 100 mg/dL 10/17/2025 6:25 PM EST [facility] Blood, Arterial 10/17/2025 6 :23 PM EST 10/17/2025 6:25 PM EST Vani Winkler MD POINT OF CARE TEST ORDERABLE S Final Result Performing Organization Address City/[facility]/ZIP Co de Phone Number [facility] [address] [place] [address]. [address] * (ABNORMAL) POC Ionized Calcium (10/17/2025 6:23 PM EST) POC Ionized Calcium 6.00(H) 4.50 - 5.30 mg/dL 10/17/2025 6:25 PM EST [facility] Blood, Arterial 10/17/2025 6 :23 PM EST 10/17/2025 6:25 PM EST Vani Winkler MD POINT OF CARE TEST ORDERABLE S Final Result [facility] [address] * POC Potassium (10/17/2025 6:23 PM EST) POC Potassium 3.8 3.5 - 5.3 mmol/L 10/17/2025 6:25 PM EST [facility] Blood, Arterial 10/17/2025 6 :23 PM EST 10/17/2025 6:25 PM EST Vani Winkler MD POINT OF CARE TEST ORDERABLE S Final Result Performing Organization Address City/[facility]/ZIP Co de Phone Number [facility] [address] * POC Sodium (10/17/2025 6:23 PM EST) POC Sodium 142 136 - 146 mmol/L 10/17/2025 6:25 PM EST [facility] Blood, Arterial 10/17/2025 6 :23 PM EST 10/17/2025 6:25 PM EST Vani Winkler MD POINT OF CARE TEST ORDERABLE S Final Result Performing Organization Address City/[facility]/ZIP Co de Phone Number [facility] [address] * (ABNORMAL) POC TCO2 (10/17/2025 6:23 PM EST) POC TCO2, Arterial 20(L) 23 - 27 mmol/L 10/17/2025 6:25 PM EST [facility] Blood, Arterial 10/17/2025 6 :23 PM EST 10/17/2025 6:25 PM EST Vani Winkler MD POINT OF CARE TEST ORDERABLE S Final Result [facility] [address] * POC O2 SAT (10/17/2025 6:23 PM EST) POC O2 Saturation, Arterial 95 95 - 98 % 10/17/2025 6:25 PM EST [facility] Blood, Arterial 10/17/2025 6 :23 PM EST 10/17/2025 6:25 PM EST Vani Winkler MD POINT OF CARE TEST ORDERABLE S Final Result [facility] [address] * (ABNORMAL) POC Base Excess (10/17/2025 6:23 PM EST) POC Base Excess, Arterial -6(L) -2 - 3 mmol/L 10/17/2025 6:25 PM EST [facility] Blood, Arterial 10/17/2025 6 :23 PM EST 10/17/2025 6:25 PM EST Vani Winkler MD POINT OF CARE TEST ORDERABLE S Final Result [facility] [address] * (ABNORMAL) POC HCO3 (10/17/2025 6:23 PM EST) POC HCO3, Arterial 19(L) 22 - 26 mmol/L 10/17/2025 6:25 PM EST [facility] Blood, Arterial 10/17/2025 6 :23 PM EST 10/17/2025 6:25 PM EST Vani Winkler MD POINT OF CARE TEST ORDERABLE S Final Result [facility] [address] * POC PO2 (10/17/2025 6:23 PM EST) POC pO2, Arterial 80 80 - 100 mm Hg 10/17/2025 6:25 PM EST [facility] Blood, Arterial 10/17/2025 6 :23 PM EST 10/17/2025 6:25 PM EST Vani Winkler MD POINT OF CARE TEST ORDERABLE S Final Result [facility] [address] * POC PCO2 (10/17/2025 6:23 PM EST) POC pCO2, Arterial 36 35 - 45 mm Hg 10/17/2025 6:25 PM EST [facility] Blood, Arterial 10/17/2025 6 :23 PM EST 10/17/2025 6:25 PM EST Vani Winkler MD POINT OF CARE TEST ORDERABLE S Final Result Performing Organization Address City/[facility]/ZIP Co de Phone Number [facility] [address] [facility]. [address] * (ABNORMAL) POC pH (10/17/2025 6:23 PM EST) POC pH, Arterial 7.33(L) 7.35 - 7.45 10/17/2025 6:25 PM EST [facility] Blood, Arterial 10/17/2025 6 :23 PM EST 10/17/2025 6:25 PM EST Vani Winkler MD POINT OF CARE TEST ORDERABLE S Final Result [facility] [address] [facility] * (ABNORMAL) POC INR (10/17/2025 6:21 PM EST) Prothrombin Time INR, POC 6.4(HH) 0.8 - 1.4 10/18/2025 12:07 AM EST [facility] Comment: Test results may vary using different testing platforms. Serial result monitoring should be performed using the same methodology. RECOMMENDED THERAPEUTIC RANGES USING INR : Stable oral anticoagulant therapy: 2.0 - 3.0 Mechanical prosthetic heart valve: 2.5 - 3.5 Recurrent acute myocardial infarction: 2.5 - 3.5 Blood 10/17/2025 6:21 PM EST 10/18/2025 12:07 AM EST Vani Winkler MD POINT OF CARE TEST ORDERABLE S Final Result [facility] [address] * Transfuse Cryoprecipitate (10/17/2025 6:18 PM EST) Slade Munoz MD NURSING TREATMENT ORDERABLES - B LOOD ADMIN Final Result * POC Sample Type (10/17/2025 5:42 PM EST) POC Sample Type Arterial 10/17/2025 6:21 PM EST [facility] Blood, Arterial 10/17/2025 5 :42 PM EST 10/17/2025 6:21 PM EST Vani Winkler MD POINT OF CARE TEST ORDERABLE S Final Result Performing Organization Address City/[facility]/ZIP Co de Phone Number [facility] [address] * POC Anion Gap (10/17/2025 5:42 PM EST) POC Anion Gap, Arterial 10 3 - 16 mmol/L 10/17/2025 6:21 PM EST [facility] Blood, Arterial 10/17/2025 5 :42 PM EST 10/17/2025 6:21 PM EST Vani Winkler MD POINT OF CARE TEST ORDERABLE S Final Result [facility] [address] * (ABNORMAL) POC Chloride (10/17/2025 5:42 PM EST) POC Chloride 111(H) 98 - 110 mmol/L 10/17/2025 6:21 PM EST [facility] Blood, Arterial 10/17/2025 5 :42 PM EST 10/17/2025 6:21 PM EST Vani Winkler MD POINT OF CARE TEST ORDERABLE S Final Result [facility] [address] * (ABNORMAL) POC Hemoglobin (10/17/2025 5:42 PM EST) Pathologist [facility] POC Hemoglobin 7.9(L) 14.0 - 18.0 g/dL 10/17/2025 6:21 PM EST [facility] Blood, Arterial 10/17/2025 5 :42 PM EST 10/17/2025 6:21 PM EST Vani Winkler MD POINT OF CARE TEST ORDERABLE S Final Result [facility] [address] * (ABNORMAL) POC hematocrit (10/17/2025 5:42 PM EST) Pathologist [facility] POC Hematocrit 23.0(L) 40 - 52 % 10/17/2025 6:21 PM EST [facility] Blood, Arterial 10/17/2025 5 :42 PM EST 10/17/2025 6:21 PM EST Vani Winkler MD POINT OF CARE TEST ORDERABLE S Final Result [facility] [address] * (ABNORMAL) POC Lactate (10/17/2025 5:42 PM EST) Pathologist [facility] POC Lactate 2.53(H) 0.50 - 2.20 mmol/L 10/17/2025 6:21 PM EST [facility] Blood, Arterial 10/17/2025 5 :42 PM EST 10/17/2025 6:21 PM EST Vani Winkler MD POINT OF CARE TEST ORDERABLE S Final Result [facility] [address] [facility] * POC Glucose (10/17/2025 5:42 PM EST) Pathologist [facility] POC Glucose, Arterial 77 70 - 100 mg/dL 10/17/2025 6:21 PM EST [facility] Blood, Arterial 10/17/2025 5 :42 PM EST 10/17/2025 6:21 PM EST Vani Winkler MD POINT OF CARE TEST ORDERABLE S Final Result Performing Organization Address City/[facility]/ZIP Co de Phone Number [facility] [address] [facility]. [address] * (ABNORMAL) POC Ionized Calcium (10/17/2025 5:42 PM EST) Pathologist [facility] POC Ionized Calcium 5.90(H) 4.50 - 5.30 mg/dL 10/17/2025 6:21 PM EST [facility] Blood, Arterial 10/17/2025 5 :42 PM EST 10/17/2025 6:21 PM EST Vani Winkler MD POINT OF CARE TEST ORDERABLE S Final Result [facility] [address] [facility] * POC Potassium (10/17/2025 5:42 PM EST) Pathologist [facility] POC Potassium 3.7 3.5 - 5.3 mmol/L 10/17/2025 6:21 PM EST [facility] Blood, Arterial 10/17/2025 5 :42 PM EST 10/17/2025 6:21 PM EST Vani Winkler MD POINT OF CARE TEST ORDERABLE S Final Result [facility] [address] [facility] * POC Sodium (10/17/2025 5:42 PM EST) Pathologist [facility] POC Sodium 141 136 - 146 mmol/L 10/17/2025 6:21 PM EST [facility] Blood, Arterial 10/17/2025 5 :42 PM EST 10/17/2025 6:21 PM EST Vani Winkler MD POINT OF CARE TEST ORDERABLE S Final Result [facility] [address] [facility] * (ABNORMAL) POC TCO2 (10/17/2025 5:42 PM EST) Pathologist [facility] POC TCO2, Arterial 21(L) 23 - 27 mmol/L 10/17/2025 6:21 PM EST [facility] Blood, Arterial 10/17/2025 5 :42 PM EST 10/17/2025 6:21 PM EST Vani Winkler MD POINT OF CARE TEST ORDERABLE S Final Result [facility] [address] [facility] * (ABNORMAL) POC O2 SAT (10/17/2025 5:42 PM EST) POC O2 Saturation, Arterial 99(H) 95 - 98 % 10/17/2025 6:21 PM EST [facility] Blood, Arterial 10/17/2025 5 :42 PM EST 10/17/2025 6:21 PM EST Vani Winkler MD POINT OF CARE TEST ORDERABLE S Final Result [facility] [address] [facility] * (ABNORMAL) POC Base Excess (10/17/2025 5:42 PM EST) POC Base Excess, Arterial -4(L) -2 - 3 mmol/L 10/17/2025 6:21 PM EST [facility] Blood, Arterial 10/17/2025 5 :42 PM EST 10/17/2025 6:21 PM EST Vani Winkelr MD POINT OF CARE TEST ORDERABLE S Final Result Performing Organization Address City/[facility]/ZIP Co de Phone Number [facility] [address] [facility] * (ABNORMAL) POC HCO3 (10/17/2025 5:42 PM EST) POC HCO3, Arterial 20(L) 22 - 26 mmol/L 10/17/2025 6:21 PM EST [facility] Blood, Arterial 10/17/2025 5 :42 PM EST 10/17/2025 6:21 PM EST Vani Winkler MD POINT OF CARE TEST ORDERABLE S Final Result Performing Organization Address City/[facility]/ZIP Co de Phone Number [facility] [address] [place] [address]. [address] * (ABNORMAL) POC PO2 (10/17/2025 5:42 PM EST) POC pO2, Arterial 159(H) 80 - 100 mm Hg 10/17/2025 6:21 PM EST [facility] Blood, Arterial 10/17/2025 5 :42 PM EST 10/17/2025 6:21 PM EST Vani Winkler MD POINT OF CARE TEST ORDERABLE S Final Result [facility] [address] * (ABNORMAL) POC PCO2 (10/17/2025 5:42 PM EST) POC pCO2, Arterial 33(L) 35 - 45 mm Hg 10/17/2025 6:21 PM EST [facility] Blood, Arterial 10/17/2025 5 :42 PM EST 10/17/2025 6:21 PM EST Vani Winkler MD POINT OF CARE TEST ORDERABLE S Final Result Performing Organization Address City/[facility] Co de Phone Number [facility] [address] * POC pH (10/17/2025 5:42 PM EST) POC pH, Arterial 7.40 7.35 - 7.45 10/17/2025 6:21 PM EST [facility] Blood, Arterial 10/17/2025 5 :42 PM EST 10/17/2025 6:21 PM EST Vani Winkler MD POINT OF CARE TEST ORDERABLE S Final Result [facility] [address] * (ABNORMAL) POC INR (10/17/2025 5:37 PM EST) Prothrombin Time INR, POC 3.6(H) 0.8 - 1.4 10/18/2025 12:07 AM EST [facility] Comment: Test results may vary using different testing platforms. Serial result monitoring should be performed using the same methodology. RECOMMENDED THERAPEUTIC RANGES USING INR : Stable oral anticoagulant therapy: 2.0 - 3.0 Mechanical prosthetic heart valve: 2.5 - 3.5 Recurrent acute myocardial infarction: 2.5 - 3.5 Blood 10/17/2025 5:37 PM EST 10/18/2025 12:07 AM EST Vani Winkler MD POINT OF CARE TEST ORDERABLE S Final Result [facility] [address] * Transfuse RBC (10/17/2025 5:34 PM EST) Slade Munoz MD NURSING TREATMENT ORDERABLES - B LOOD ADMIN Final Result * Transfuse RBC (10/17/2025 5:34 PM EST) Slade Munoz MD NURSING TREATMENT ORDERABLES - B LOOD ADMIN Final Result * Surgical Pathology Exam (10/17/2025 5:20 PM EST) Tissue LIVER STRUCTURE / Unknown 10/17/2025 5:20 PM EST Narrative [facility] - 10/17/2025 12:00 AM EST CASE: [id number] PATIENT: DAVID SERRANO Clinical History: transplant liver Pre-Operative Diagnosis: end stage liver disease Post-Operative Diagnosis: same Specimen(s) Submitted: A. [place] liver and gallbladder; B. Right lobe post perfusion liver bx; C. 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 - Negative for neoplasm. - PASd stain highlights diagnostic intracytoplasmic globules. Gall bladder: -Intramucosal and submucosal vascular congestion and hemorrhage. - Negative for dysplasia or malignancy. Liver, right lobe allograft biopsy: - Mild steatosis (20%). - Moderate ischemia and reperfusion injury. - Pericellular and periportal fibrosis (Stage 2; BECK-CRN). - No acute cellular rejection. Liver, left lobe allograft biopsy: - Mild steatosis (20%). - Moderate ischemia and reperfusion injury. - Pericellular and periportal fibrosis (Stage 2; BECK-CRN). - No acute cellular rejection. ___ Gross Description: A. Received in formalin, labeled with the patient's name David Serrano and [place] liver and gallbladder is a 782 gram, 19.5 x 12.0 x 11.5 cm total hepatectomy specimen with an attached 10.0 x 4.0 x 3.5 cm intact gallbladder. The serosal surface of the gallbladder is green-suarez smooth and glistening. The gallbladder is opened to reveal a maximum wall thickness of 0.3 cm. The lumen contains green-black viscous bile with no discrete stones identified. The gallbladder mucosa is red-brown and velvety with no lesions identified. The capsular surface of the liver is red-brown and diffusely multinodular with nodules ranging from 0.1 to 0.5 cm in greatest dimension. The liver is serially sectioned from right to left to reveal red-brown multinodular cut surfaces with no discrete masses or lesions are identified. [place] sections are submitted in cassettes [id number] as follows: A1: [place] gallbladder. A2: Hilar margins, en face. A3-A5: [place] right lobe. A6-A8: [place] left lobe with liver written on the side of the cassette in A8. (LAISHA Miranda/) B. Received in formalin, labeled with the patient's name David Serrano and right lobe post perfusion liver biopsy is a 1.6 cm in length x 0.1 cm in diameter red-brown tissue core, which is entirely submitted between blue biopsy sponges in cassette [id number] B1. (LAISHA Miranda/vc) C. Received in formalin, labeled with the patient's name David Serrano and left lobe post perfusion liver biopsy is a 1.3 cm in length x 0.1 cm in diameter red-brown fragmented tissue core, which is entirely submitted between blue biopsy sponges in cassette [id number]. (LAISHA Miranda/vc) Microscopic Description: Sixteen HE stained slides are examined. Liver: Trichrome stain highlights fibrous bands around regenerative nodules. Reticulin stain does not show additional pathologic change. Iron stain does not show increased hepatocellular iron deposition. PASd does shows diagnostic intracytoplasmic globules. Copper stain shows chronic cholestasis. I, the attending pathologist, have personally reviewed all prosector/resident work and pathology slides to determine final diagnosis. Control Materials Reacted Appropriately. Final Diagnosis performed by ALBERTO PEREZ MD Pathologist Electronically signed 10/22/2025 07:05:07 PM The Pathologist signing this report is located at [facility], [address] [place] [address], Critical access hospital, , CLIA ID: [id number] us Leticia Lomeli MD PATHOLOGY/CYTOLOGY ORDERABLES Final Result Performing Organization Address [facility] Co de Phone Number [facility] * Transfuse RBC (10/17/2025 5:19 PM EST) Slade Munoz MD NURSING TREATMENT ORDERABLES - B LOOD ADMIN Final Result * POC Sample Type (10/17/2025 5:00 PM EST) POC Sample Type Arterial 10/17/2025 5:03 PM EST [facility] Blood, Arterial 10/17/2025 5 :00 PM EST 10/17/2025 5:03 PM EST Vani Winkler MD POINT OF CARE TEST ORDERABLE S Final Result [facility] [address] [place] [address] * POC Anion Gap (10/17/2025 5:00 PM EST) POC Anion Gap, Arterial 11 3 - 16 mmol/L 10/17/2025 5:03 PM EST [facility] Blood, Arterial 10/17/2025 5 :00 PM EST 10/17/2025 5:03 PM EST Vani Winkler MD POINT OF CARE TEST ORDERABLE S Final Result [facility] [address] * POC Chloride (10/17/2025 5:00 PM EST) POC Chloride 109 98 - 110 mmol/L 10/17/2025 5:03 PM EST [facility] Blood, Arterial 10/17/2025 5 :00 PM EST 10/17/2025 5:03 PM EST Vani Winkler MD POINT OF CARE TEST ORDERABLE S Final Result Performing Organization Address City/[facility]/ZIP Co de Phone Number [facility] [address] * (ABNORMAL) POC Hemoglobin (10/17/2025 5:00 PM EST) POC Hemoglobin 7.9(L) 14.0 - 18.0 g/dL 10/17/2025 5:03 PM EST [facility] Blood, Arterial 10/17/2025 5 :00 PM EST 10/17/2025 5:03 PM EST Vani Winkler MD POINT OF CARE TEST ORDERABLE S Final Result Performing Organization Address City/[facility]/ZIP Co de Phone Number [facility] [address] * (ABNORMAL) POC hematocrit (10/17/2025 5:00 PM EST) POC Hematocrit 23.0(L) 40 - 52 % 10/17/2025 5:03 PM EST [facility] Blood, Arterial 10/17/2025 5 :00 PM EST 10/17/2025 5:03 PM EST Vani Winkler MD POINT OF CARE TEST ORDERABLE S Final Result [facility] [address] * (ABNORMAL) POC Lactate (10/17/2025 5:00 PM EST) POC Lactate 2.68(H) 0.50 - 2.20 mmol/L 10/17/2025 5:03 PM EST [facility] Blood, Arterial 10/17/2025 5 :00 PM EST 10/17/2025 5:03 PM EST Vani Winkler MD POINT OF CARE TEST ORDERABLE S Final Result [facility] [address] * POC Glucose (10/17/2025 5:00 PM EST) POC Glucose, Arterial 96 70 - 100 mg/dL 10/17/2025 5:03 PM EST [facility] Blood, Arterial 10/17/2025 5 :00 PM EST 10/17/2025 5:03 PM EST Vani Winkler MD POINT OF CARE TEST ORDERABLE S Final Result [facility] [address] * POC Ionized Calcium (10/17/2025 5:00 PM EST) POC Ionized Calcium 4.60 4.50 - 5.30 mg/dL 10/17/2025 5:03 PM EST [facility] Blood, Arterial 10/17/2025 5 :00 PM EST 10/17/2025 5:03 PM EST Vani Winkler MD POINT OF CARE TEST ORDERABLE S Final Result [facility] [address] * POC Potassium (10/17/2025 5:00 PM EST) POC Potassium 3.7 3.5 - 5.3 mmol/L 10/17/2025 5:03 PM EST [facility] Blood, Arterial 10/17/2025 5 :00 PM EST 10/17/2025 5:03 PM EST Vani Winkler MD POINT OF CARE TEST ORDERABLE S Final Result [facility] [address] [place] [facility]. [address] * POC Sodium (10/17/2025 5:00 PM EST) POC Sodium 143 136 - 146 mmol/L 10/17/2025 5:03 PM EST [facility] Blood, Arterial 10/17/2025 5 :00 PM EST 10/17/2025 5:03 PM EST Vani Winkler MD POINT OF CARE TEST ORDERABLE S Final Result [facility] [address] * POC TCO2 (10/17/2025 5:00 PM EST) POC TCO2, Arterial 24 23 - 27 mmol/L 10/17/2025 5:03 PM EST [facility] Blood, Arterial 10/17/2025 5 :00 PM EST 10/17/2025 5:03 PM EST Vani Winkler MD POINT OF CARE TEST ORDERABLE S Final Result [facility] [address] [facility] * (ABNORMAL) POC O2 SAT (10/17/2025 5:00 PM EST) POC O2 Saturation, Arterial 100(H) 95 - 98 % 10/17/2025 5:03 PM EST [facility] Blood, Arterial 10/17/2025 5 :00 PM EST 10/17/2025 5:03 PM EST Vani Winkler MD POINT OF CARE TEST ORDERABLE S Final Result [facility] [address] [facility] * POC Base Excess (10/17/2025 5:00 PM EST) POC Base Excess, Arterial -2 -2 - 3 mmol/L 10/17/2025 5:03 PM EST [facility] Blood, Arterial 10/17/2025 5 :00 PM EST 10/17/2025 5:03 PM EST Vani Winkler MD POINT OF CARE TEST ORDERABLE S Final Result [facility] [address] [facility] * POC HCO3 (10/17/2025 5:00 PM EST) POC HCO3, Arterial 23 22 - 26 mmol/L 10/17/2025 5:03 PM EST [facility] Blood, Arterial 10/17/2025 5 :00 PM EST 10/17/2025 5:03 PM EST Vani Winkler MD POINT OF CARE TEST ORDERABLE S Final Result [facility] [address] [facility] * (ABNORMAL) POC PO2 (10/17/2025 5:00 PM EST) POC pO2, Arterial 200(H) 80 - 100 mm Hg 10/17/2025 5:03 PM EST [facility] Blood, Arterial 10/17/2025 5 :00 PM EST 10/17/2025 5:03 PM EST Vani Winkler MD POINT OF CARE TEST ORDERABLE S Final Result [facility] [address] [facility]. [address] * POC PCO2 (10/17/2025 5:00 PM EST) POC pCO2, Arterial 38 35 - 45 mm Hg 10/17/2025 5:03 PM EST [facility] Blood, Arterial 10/17/2025 5 :00 PM EST 10/17/2025 5:03 PM EST Vani Winkler MD POINT OF CARE TEST ORDERABLE S Final Result Performing Organization Address [facility] [facility] Co de Phone Number [facility] [address] * POC pH (10/17/2025 5:00 PM EST) POC pH, Arterial 7.39 7.35 - 7.45 10/17/2025 5:03 PM EST [facility] Blood, Arterial 10/17/2025 5 :00 PM EST 10/17/2025 5:03 PM EST Vani Winkler MD POINT OF CARE TEST ORDERABLE S Final Result Performing Organization Address City/[facility]/ZIP Co de Phone Number [facility] [address] [facility] * (ABNORMAL) POC INR (10/17/2025 4:59 PM EST) Prothrombin Time INR, POC 1.7(H) 0.8 - 1.4 10/18/2025 12:07 AM EST [facility] Comment: Test results may vary using different testing platforms. Serial result monitoring should be performed using the same methodology. RECOMMENDED THERAPEUTIC RANGES USING INR : Stable oral anticoagulant therapy: 2.0 - 3.0 Mechanical prosthetic heart valve: 2.5 - 3.5 Recurrent acute myocardial infarction: 2.5 - 3.5 Blood 10/17/2025 4:59 PM EST 10/18/2025 12:07 AM EST us Vani Winkler MD POINT OF CARE TEST ORDERABLE S Final Result [facility] [address] * (ABNORMAL) TEG-Bypass/ECMO/Liver HN (Factor function, Platelet/Fibrin Clot Strength w/Clot Breakdown, Heparinase In All Channels) (10/17/2025 4:56 PM EST) Citrated Kaolin Reaction Time (TEGECMOLIVER) 4.7 4.6 - 9.1 minutes 10/17/2025 6:20 PM EST [facility] Citrated Kaolin W/Heparinase Reaction Time (TEGECMOLIVER) 4.7 4.3 - 8.3 minutes 10/17/2025 6:20 PM EST [facility] Citrated Kaolin Maximum Amplitude (TEGECMOLIVER) 42.4(L) 52.0 - 69.0 mm 10/17/2025 6:20 PM EST [facility] Citrated Functional Fibrinogen W/Heparinase Maximum Amplitude(TEGEC MOLIVER) 6.6(L) 15.0 - 34.0 mm 10/17/2025 6:20 PM EST [facility] Citrated Rapid Teg W/Heparinase Maximum Amplitude (TEGECMOLIVER) 39.8(L) 53.0 - 69.0 mm 10/17/2025 6:20 PM EST [facility] Citrated Kaolin w/Heparinase Percent Lysis (TEGECMOLIVER) 0.0 0.0 - 3.2 % 10/17/2025 6:20 PM EST [facility] Whole Blood (Citrate) 10/17/2025 4:56 PM EST 10/17/2025 5:06 PM EST us Slade Munoz MD LAB BLOOD ORDERABLES Final Resul t [facility] [address] * (ABNORMAL) Protime-INR (10/17/2025 4:56 PM EST) Protime 26.4(H) 12.1 - 15.1 seconds 10/17/2025 5:31 PM EST [facility] INR 2.3(H) 0.9 - 1.1 10/17/2025 5:31 PM EST [facility] Comment: RECOMMENDED THERAPEUTIC RANGES USING INR : Stable oral anticoagulant therapy: 2.0 - 3.0 Mechanical prosthetic heart valve: 2.5 - 3.5 Recurrent acute myocardial infarction: 2.5 - 3.5 Plasma 10/17/2025 4:56 PM EST 10/17/2025 5:06 PM EST Slade Munoz MD LAB BLOOD ORDERABLES Final Resul t Performing Organization Address City/[facility]/ZIP Co de Phone Number [facility] [address] * (ABNORMAL) Fibrinogen (10/17/2025 4:56 PM EST) Fibrinogen 137(L) 218 - 406 mg/dL 10/17/2025 5:36 PM EST [facility] Plasma 10/17/2025 4:56 PM EST 10/17/2025 5:06 PM EST Slade Munoz MD LAB BLOOD ORDERABLES Final Resul t [facility] [address] [facility] * (ABNORMAL) CBC (10/17/2025 4:56 PM EST) WBC 3.9 3.8 - 10.8 10E3/uL 10/17/2025 8:25 PM EST [facility] RBC 2.67(L) 4.20 - 5.80 10E6/uL 10/17/2025 8:25 PM EST [facility] Hemoglobin 9.2(L) 13.2 - 17.1 g/dL 10/17/2025 8:25 PM EST [facility] Hematocrit 26.1(L) 38.5 - 50.0 % 10/17/2025 8:25 PM EST [facility] MCV 98.0 80.0 - 100.0 fL 10/17/2025 8:25 PM EST [facility] MCH 34.5(H) 27.0 - 33.0 pg 10/17/2025 8:25 PM EST [facility] MCHC 35.3 32.0 - 36.0 g/dL 10/17/2025 8:25 PM EST [facility] RDW 17.9(H) 11.0 - 15.0 % 10/17/2025 8:25 PM EST [facility] Platelets 64(L) 140 - 400 10E3/uL 10/17/2025 8:25 PM EST [facility] MPV 8.2 7.5 - 11.5 fL 10/17/2025 8:25 PM EST [facility] Whole Blood 10/17/2025 4:56 PM EST 10/17/2025 5:19 PM EST us Slade Munoz MD LAB BLOOD ORDERABLES Final Resul t [facility] [address] [facility] * (ABNORMAL) APTT, No Anticoagulant (10/17/2025 4:56 PM EST) aPTT 55.7(H) 25.5 - 35.0 seconds 10/17/2025 5:32 PM EST [facility] Plasma 10/17/2025 4:56 PM EST 10/17/2025 5:06 PM EST us Slade Munoz MD LAB BLOOD ORDERABLES Final Resul t [facility] [address] [facility] * Transfuse Cryoprecipitate (10/17/2025 4:18 PM EST) us Slade Munoz MD NURSING TREATMENT ORDERABLES - B LOOD ADMIN Final Result * Transfuse Cryoprecipitate Transfusion Rate: Per dept routine (10/17/2025 4:18 PM EST) us Slade Munoz MD NURSING TREATMENT ORDERABLES - B LOOD ADMIN Final Result Performing Organization Address [facility] de Phone Number EXTERNAL * Transfuse Cryoprecipitate Transfusion Rate: Per dept routine, 1 Units (10/17/2025 4:18 PM EST) us Slade Munoz MD NURSING TREATMENT ORDERABLES - B LOOD ADMIN Final Result Performing Organization Address City/[facility] Co de Phone Number EXTERNAL * Transfuse Platelets (10/17/2025 4:06 PM EST) us Slade Munoz MD NURSING TREATMENT ORDERABLES - B LOOD ADMIN Final Result * POC Sample Type (10/17/2025 3:59 PM EST) POC Sample Type Arterial 10/17/2025 4:01 PM EST [facility] Blood, Arterial 10/17/2025 3 :59 PM EST 10/17/2025 4:01 PM EST us Vani Winkler MD POINT OF CARE TEST ORDERABLE S Final Result Performing Organization Address [facility] Co de Phone Number [facility] [address] [facility] * POC Anion Gap (10/17/2025 3:59 PM EST) Pathologist [facility] POC Anion Gap, Arterial 10 3 - 16 mmol/L 10/17/2025 4:01 PM EST [facility] Blood, Arterial 10/17/2025 3 :59 PM EST 10/17/2025 4:01 PM EST us Vani Winkler MD POINT OF CARE TEST ORDERABLE S Final Result Performing Organization Address [facility] Co de Phone Number [facility] [address] [facility] * (ABNORMAL) POC Chloride (10/17/2025 3:59 PM EST) POC Chloride 111(H) 98 - 110 mmol/L 10/17/2025 4:01 PM EST [facility] Blood, Arterial 10/17/2025 3 :59 PM EST 10/17/2025 4:01 PM EST Vani Winkler MD POINT OF CARE TEST ORDERABLE S Final Result [facility] [address] * (ABNORMAL) POC Hemoglobin (10/17/2025 3:59 PM EST) Pathologist [facility] POC Hemoglobin 9.7(L) 14.0 - 18.0 g/dL 10/17/2025 4:01 PM EST [facility] Blood, Arterial 10/17/2025 3 :59 PM EST 10/17/2025 4:01 PM EST Vani Winkler MD POINT OF CARE TEST ORDERABLE S Final Result Performing Organization Address City/[facility]/ZIP Co de Phone Number [facility] [address] * (ABNORMAL) POC hematocrit (10/17/2025 3:59 PM EST) Pathologist [facility] POC Hematocrit 29.0(L) 40 - 52 % 10/17/2025 4:01 PM EST [facility] Blood, Arterial 10/17/2025 3 :59 PM EST 10/17/2025 4:01 PM EST Vani Winkler MD POINT OF CARE TEST ORDERABLE S Final Result [facility] [address] [facility] * POC Lactate (10/17/2025 3:59 PM EST) POC Lactate 1.77 0.50 - 2.20 mmol/L 10/17/2025 4:01 PM EST [facility] Blood, Arterial 10/17/2025 3 :59 PM EST 10/17/2025 4:01 PM EST Vani Winkler MD POINT OF CARE TEST ORDERABLE S Final Result Performing Organization Address City/[facility]/ZIP Co de Phone Number [facility] [address] [facility] * POC Glucose (10/17/2025 3:59 PM EST) POC Glucose, Arterial 81 70 - 100 mg/dL 10/17/2025 4:01 PM EST [facility] Blood, Arterial 10/17/2025 3 :59 PM EST 10/17/2025 4:01 PM EST Vani Winkler MD POINT OF CARE TEST ORDERABLE S Final Result Performing Organization Address City/[facility]/ZIP Co de Phone Number [facility] [address] [facility] * POC Ionized Calcium (10/17/2025 3:59 PM EST) POC Ionized Calcium 4.90 4.50 - 5.30 mg/dL 10/17/2025 4:01 PM EST [facility] Blood, Arterial 10/17/2025 3 :59 PM EST 10/17/2025 4:01 PM EST Vani Winkler MD POINT OF CARE TEST ORDERABLE S Final Result Performing Organization Address City/[facility]/ZIP Co de Phone Number [facility] [address] [place] [address]. [address] * POC Potassium (10/17/2025 3:59 PM EST) POC Potassium 3.7 3.5 - 5.3 mmol/L 10/17/2025 4:01 PM EST [facility] Blood, Arterial 10/17/2025 3 :59 PM EST 10/17/2025 4:01 PM EST Vani Winkler MD POINT OF CARE TEST ORDERABLE S Final Result Performing Organization Address City/[facility]/ZIP Co de Phone Number [facility] [address] * POC Sodium (10/17/2025 3:59 PM EST) POC Sodium 145 136 - 146 mmol/L 10/17/2025 4:01 PM EST [facility] Blood, Arterial 10/17/2025 3 :59 PM EST 10/17/2025 4:01 PM EST us Vani Winkler MD POINT OF CARE TEST ORDERABLE S Final Result Performing Organization Address [facility] Co de Phone Number [facility] [address] [facility] * POC TCO2 (10/17/2025 3:59 PM EST) POC TCO2, Arterial 26 23 - 27 mmol/L 10/17/2025 4:01 PM EST [facility] Blood, Arterial 10/17/2025 3 :59 PM EST 10/17/2025 4:01 PM EST Vani Winkler MD POINT OF CARE TEST ORDERABLE S Final Result Performing Organization Address City/[facility]/ZIP Co de Phone Number [facility] [address] [place] [address]. [address] * (ABNORMAL) POC O2 SAT (10/17/2025 3:59 PM EST) POC O2 Saturation, Arterial 100(H) 95 - 98 % 10/17/2025 4:01 PM EST [facility] Blood, Arterial 10/17/2025 3 :59 PM EST 10/17/2025 4:01 PM EST Vani Winkler MD POINT OF CARE TEST ORDERABLE S Final Result [facility] [address] * POC Base Excess (10/17/2025 3:59 PM EST) POC Base Excess, Arterial -1 -2 - 3 mmol/L 10/17/2025 4:01 PM EST [facility] Blood, Arterial 10/17/2025 3 :59 PM EST 10/17/2025 4:01 PM EST Vani Winkler MD POINT OF CARE TEST ORDERABLE S Final Result Performing Organization Address City/[facility]/ZIP Co de Phone Number [facility] [address] * POC HCO3 (10/17/2025 3:59 PM EST) POC HCO3, Arterial 24 22 - 26 mmol/L 10/17/2025 4:01 PM EST [facility] Blood, Arterial 10/17/2025 3 :59 PM EST 10/17/2025 4:01 PM EST Vani Winkler MD POINT OF CARE TEST ORDERABLE S Final Result Performing Organization Address City/[facility]/ZIP Co de Phone Number [facility] [address] * (ABNORMAL) POC PO2 (10/17/2025 3:59 PM EST) POC pO2, Arterial 213(H) 80 - 100 mm Hg 10/17/2025 4:01 PM EST [facility] Blood, Arterial 10/17/2025 3 :59 PM EST 10/17/2025 4:01 PM EST Vani Winkler MD POINT OF CARE TEST ORDERABLE S Final Result [facility] [address] * POC PCO2 (10/17/2025 3:59 PM EST) POC pCO2, Arterial 45 35 - 45 mm Hg 10/17/2025 4:01 PM EST [facility] Blood, Arterial 10/17/2025 3 :59 PM EST 10/17/2025 4:01 PM EST Vani Winkler MD POINT OF CARE TEST ORDERABLE S Final Result Performing Organization Address City/[facility]/ZIP Co de Phone Number [facility] [address] [facility]. [address] * (ABNORMAL) POC pH (10/17/2025 3:59 PM EST) POC pH, Arterial 7.34(L) 7.35 - 7.45 10/17/2025 4:01 PM EST [facility] Blood, Arterial 10/17/2025 3 :59 PM EST 10/17/2025 4:01 PM EST Vani Winkler MD POINT OF CARE TEST ORDERABLE S Final Result Performing Organization Address [facility] de Phone Number [facility] [address] [facility] * (ABNORMAL) POC INR (10/17/2025 3:58 PM EST) Prothrombin Time INR, POC 2.8(H) 0.8 - 1.4 10/18/2025 12:07 AM EST [facility] Comment: Test results may vary using different testing platforms. Serial result monitoring should be performed using the same methodology. RECOMMENDED THERAPEUTIC RANGES USING INR : Stable oral anticoagulant therapy: 2.0 - 3.0 Mechanical prosthetic heart valve: 2.5 - 3.5 Recurrent acute myocardial infarction: 2.5 - 3.5 Blood 10/17/2025 3:58 PM EST 10/18/2025 12:07 AM EST Vani Winkler MD POINT OF CARE TEST ORDERABLE S Final Result [facility] [address] [place] [id number], [facility] * Transfuse RBC (10/17/2025 3:23 PM EST) Result [facility] us Slade Munoz MD NURSING TREATMENT ORDERABLES - B LOOD ADMIN Final Result * Transfuse RBC (10/17/2025 3:15 PM EST) Slade Munoz MD NURSING TREATMENT ORDERABLES - B LOOD ADMIN Final Result * (ABNORMAL) TEG-Bypass/ECMO/Liver HN (Factor function, Platelet/Fibrin Clot Strength w/Clot Breakdown, Heparinase In All Channels) (10/17/2025 2:55 PM EST) [facility] Citrated Kaolin Reaction Time (TEGECMOLIVER) 5.1 4.6 - 9.1 minutes 10/17/2025 4:23 PM EST [facility] Citrated Kaolin W/Heparinase Reaction Time (TEGECMOLIVER) 5.2 4.3 - 8.3 minutes 10/17/2025 4:23 PM EST [facility] Citrated Kaolin Maximum Amplitude (TEGECMOLIVER) <40.0(L) 52.0 - 69.0 mm 10/17/2025 4:23 PM EST [facility] Citrated Functional Fibrinogen W/Heparinase Maximum Amplitude(TEGEC MOLIVER) <6.0(L) 15.0 - 34.0 mm 10/17/2025 4:23 PM EST [facility] Citrated Rapid Teg W/Heparinase Maximum Amplitude (TEGECMOLIVER) 32.8(L) 53.0 - 69.0 mm 10/17/2025 4:23 PM EST [facility] Citrated Kaolin w/Heparinase Percent Lysis (TEGECMOLIVER) 0.0 0.0 - 3.2 % 10/17/2025 4:23 PM EST [facility] Whole Blood (Citrate) 10/17/2025 2:55 PM EST 10/17/2025 3:05 PM EST us Slade Munoz MD LAB BLOOD ORDERABLES Final Resul t [facility] [address] * (ABNORMAL) CBC (10/17/2025 2:55 PM EST) WBC 4.4 3.8 - 10.8 10E3/uL 10/17/2025 3:20 PM EST [facility] RBC 2.90(L) 4.20 - 5.80 10E6/uL 10/17/2025 3:20 PM EST [facility] Hemoglobin 10.0(L) 13.2 - 17.1 g/dL 10/17/2025 3:20 PM EST [facility] Hematocrit 28.6(L) 38.5 - 50.0 % 10/17/2025 3:20 PM EST [facility] MCV 98.7 80.0 - 100.0 fL 10/17/2025 3:20 PM EST [facility] MCH 34.4(H) 27.0 - 33.0 pg 10/17/2025 3:20 PM EST [facility] MCHC 34.8 32.0 - 36.0 g/dL 10/17/2025 3:20 PM EST [facility] RDW 17.0(H) 11.0 - 15.0 % 10/17/2025 3:20 PM EST [facility] Platelets 53(L) 140 - 400 10E3/uL 10/17/2025 3:20 PM EST [facility] MPV 7.6 7.5 - 11.5 fL 10/17/2025 3:20 PM EST [facility] Whole Blood 10/17/2025 2:55 PM EST 10/17/2025 3:06 PM EST us Slade Munoz MD LAB BLOOD ORDERABLES Final Resul t [facility] [address] * (ABNORMAL) Fibrinogen (10/17/2025 2:55 PM EST) Fibrinogen 85(LL) 218 - 406 mg/dL 10/17/2025 3:46 PM EST [facility] Comment:The critical result was called to, and read back by, licensed caregiver CAMI GALEANO MD, AT 1545 Plasma 10/17/2025 2:55 PM EST 10/17/2025 3:06 PM EST Result [facility] Slade Munoz MD LAB BLOOD ORDERABLES Final Resul t Performing Organization Address [facility] Co de Phone Number [facility] [address] * (ABNORMAL) Protime-INR (10/17/2025 2:55 PM EST) Protime 26.5(H) 12.1 - 15.1 seconds 10/17/2025 3:30 PM EST [facility] INR 2.3(H) 0.9 - 1.1 10/17/2025 3:30 PM EST [facility] Comment: RECOMMENDED THERAPEUTIC RANGES USING INR : Stable oral anticoagulant therapy: 2.0 - 3.0 Mechanical prosthetic heart valve: 2.5 - 3.5 Recurrent acute myocardial infarction: 2.5 - 3.5 Plasma 10/17/2025 2:55 PM EST 10/17/2025 3:06 PM EST Result [facility] Slade Munoz MD LAB BLOOD ORDERABLES Final Resul t Performing Organization Address [facility] Co de Phone Number [facility] [address] [facility] * POC Sample Type (10/17/2025 2:54 PM EST) POC Sample Type Arterial 10/17/2025 3:55 PM EST [facility] Blood, Arterial 10/17/2025 2 :54 PM EST 10/17/2025 3:55 PM EST Result [facility] Vani Winkler MD POINT OF CARE TEST ORDERABLE S Final Result Performing Organization Address [facility] Co de Phone Number [facility] [address] * POC Anion Gap (10/17/2025 2:54 PM EST) POC Anion Gap, Arterial 10 3 - 16 mmol/L 10/17/2025 3:55 PM EST [facility] Blood, Arterial 10/17/2025 2 :54 PM EST 10/17/2025 3:55 PM EST Vani Winkler MD POINT OF CARE TEST ORDERABLE S Final Result [facility] [address] [place] [address]. [address] * (ABNORMAL) POC Chloride (10/17/2025 2:54 PM EST) Pathologist [facility] POC Chloride 112(H) 98 - 110 mmol/L 10/17/2025 3:55 PM EST [facility] Blood, Arterial 10/17/2025 2 :54 PM EST 10/17/2025 3:55 PM EST Vani Winkler MD POINT OF CARE TEST ORDERABLE S Final Result Performing Organization Address [facility] Co de Phone Number [facility] [address] [place] [address]. [address] * (ABNORMAL) POC Hemoglobin (10/17/2025 2:54 PM EST) Pathologist [facility] POC Hemoglobin 8.7(L) 14.0 - 18.0 g/dL 10/17/2025 3:55 PM EST [facility] Blood, Arterial 10/17/2025 2 :54 PM EST 10/17/2025 3:55 PM EST Vani Winkler MD POINT OF CARE TEST ORDERABLE S Final Result Performing Organization Address City/[facility] Co de Phone Number [facility] [address] [place] [address]. [address] * (ABNORMAL) POC hematocrit (10/17/2025 2:54 PM EST) POC Hematocrit 26.0(L) 40 - 52 % 10/17/2025 3:55 PM EST [facility] Blood, Arterial 10/17/2025 2 :54 PM EST 10/17/2025 3:55 PM EST Vani Winkler MD POINT OF CARE TEST ORDERABLE S Final Result [facility] [address] [place] [address]. [address] * POC Lactate (10/17/2025 2:54 PM EST) Pathologist [facility] POC Lactate 1.23 0.50 - 2.20 mmol/L 10/17/2025 3:55 PM EST [facility] Blood, Arterial 10/17/2025 2 :54 PM EST 10/17/2025 3:55 PM EST Vani Winkler MD POINT OF CARE TEST ORDERABLE S Final Result [facility] [address] [facility] * POC Glucose (10/17/2025 2:54 PM EST) Pathologist [facility] POC Glucose, Arterial 74 70 - 100 mg/dL 10/17/2025 3:55 PM EST [facility] Blood, Arterial 10/17/2025 2 :54 PM EST 10/17/2025 3:55 PM EST Vani Winkler MD POINT OF CARE TEST ORDERABLE S Final Result [facility] [address] [place] [address]. [address] * POC Ionized Calcium (10/17/2025 2:54 PM EST) Pathologist [facility] POC Ionized Calcium 4.70 4.50 - 5.30 mg/dL 10/17/2025 3:55 PM EST [facility] Blood, Arterial 10/17/2025 2 :54 PM EST 10/17/2025 3:55 PM EST us Vani Winkler MD POINT OF CARE TEST ORDERABLE S Final Result [facility] [address] [facility] * (ABNORMAL) POC Potassium (10/17/2025 2:54 PM EST) POC Potassium 3.2(L) 3.5 - 5.3 mmol/L 10/17/2025 3:55 PM EST [facility] Blood, Arterial 10/17/2025 2 :54 PM EST 10/17/2025 3:55 PM EST us Vani Winkler MD POINT OF CARE TEST ORDERABLE S Final Result Performing Organization Address City/[facility]/ZIP Co de Phone Number [facility] [address] [facility] * POC Sodium (10/17/2025 2:54 PM EST) POC Sodium 145 136 - 146 mmol/L 10/17/2025 3:55 PM EST [facility] Blood, Arterial 10/17/2025 2 :54 PM EST 10/17/2025 3:55 PM EST us Vani Winkler MD POINT OF CARE TEST ORDERABLE S Final Result Performing Organization Address City/State/[facility] Co de Phone Number [facility] [address] [facility] * POC TCO2 (10/17/2025 2:54 PM EST) POC TCO2, Arterial 24 23 - 27 mmol/L 10/17/2025 3:55 PM EST [facility] Blood, Arterial 10/17/2025 2 :54 PM EST 10/17/2025 3:55 PM EST us Vani Winkler MD POINT OF CARE TEST ORDERABLE S Final Result [facility] [address] * (ABNORMAL) POC O2 SAT (10/17/2025 2:54 PM EST) POC O2 Saturation, Arterial 100(H) 95 - 98 % 10/17/2025 3:55 PM EST [facility] Blood, Arterial 10/17/2025 2 :54 PM EST 10/17/2025 3:55 PM EST Vani Winkler MD POINT OF CARE TEST ORDERABLE S Final Result Performing Organization Address [facility]/ZIP Co de Phone Number [facility] [address] * POC Base Excess (10/17/2025 2:54 PM EST) POC Base Excess, Arterial -2 -2 - 3 mmol/L 10/17/2025 3:55 PM EST [facility] Blood, Arterial 10/17/2025 2 :54 PM EST 10/17/2025 3:55 PM EST Vani Winkler MD POINT OF CARE TEST ORDERABLE S Final Result Performing Organization Address City/[facility]/ZIP Co de Phone Number [facility] [address] * POC HCO3 (10/17/2025 2:54 PM EST) POC HCO3, Arterial 23 22 - 26 mmol/L 10/17/2025 3:55 PM EST [facility] Blood, Arterial 10/17/2025 2 :54 PM EST 10/17/2025 3:55 PM EST Vani Winkler MD POINT OF CARE TEST ORDERABLE S Final Result [facility] [address] * (ABNORMAL) POC PO2 (10/17/2025 2:54 PM EST) POC pO2, Arterial 179(H) 80 - 100 mm Hg 10/17/2025 3:55 PM EST [facility] Blood, Arterial 10/17/2025 2 :54 PM EST 10/17/2025 3:55 PM EST Vani Winkler MD POINT OF CARE TEST ORDERABLE S Final Result [facility] [address] * POC PCO2 (10/17/2025 2:54 PM EST) POC pCO2, Arterial 40 35 - 45 mm Hg 10/17/2025 3:55 PM EST [facility] Blood, Arterial 10/17/2025 2 :54 PM EST 10/17/2025 3:55 PM EST Vani Winkler MD POINT OF CARE TEST ORDERABLE S Final Result [facility] [address] * POC pH (10/17/2025 2:54 PM EST) POC pH, Arterial 7.37 7.35 - 7.45 10/17/2025 3:55 PM EST [facility] Blood, Arterial 10/17/2025 2 :54 PM EST 10/17/2025 3:55 PM EST Vani Winkler MD POINT OF CARE TEST ORDERABLE S Final Result [facility] [address] * (ABNORMAL) POC INR (10/17/2025 2:53 PM EST) Prothrombin Time INR, POC 2.4(H) 0.8 - 1.4 10/18/2025 12:07 AM EST [facility] Comment: Test results may vary using different testing platforms. Serial result monitoring should be performed using the same methodology. RECOMMENDED THERAPEUTIC RANGES USING INR : Stable oral anticoagulant therapy: 2.0 - 3.0 Mechanical prosthetic heart valve: 2.5 - 3.5 Recurrent acute myocardial infarction: 2.5 - 3.5 Blood 10/17/2025 2:53 PM EST 10/18/2025 12:07 AM EST Vani Winkler MD POINT OF CARE TEST ORDERABLE S Final Result Performing Organization Address [facility] Co de Phone Number [facility] [address] * Routine Culture plus Stain (Surgical Swab) (10/17/2025 2:50 PM EST) Gram Stain Result Rare Polymorphonuclear Leukocytes Seen [facility] Gram Stain Result No Organisms Seen; [facility] Culture Result No Growth After 3 Days [facility] Surgical Swab PERITONEAL FLUID / Unknown 10/17/2025 2:50 PM EST Comment:1. Ascites-anaerobic , aerobic, and fungal Narrative [facility] - 10/20/2025 11:09 AM EST 1. Ascites-anaerobic, aerobic, and fungal 1. Ascites-anaerobic, aerobic, and fungal Vani Winkler MD MICROBIOLOGY - GENERAL ORDER MARYA Final Result [facility] [address] * Anaerobic culture (Surgical Swab) (10/17/2025 2:50 PM EST) Culture Result No Anaerobes Isolated in 5 Days [facility] Surgical Swab PERITONEAL FLUID / Unknown 10/17/2025 2:50 PM EST Comment:1. Ascites-anaerobic , aerobic, and fungal Narrative [facility] - 10/22/2025 11:32 AM EST 1. Ascites-anaerobic, aerobic, and fungal 1. Ascites-anaerobic, aerobic, and fungal Vani Winkler MD MICROBIOLOGY - GENERAL ORDER MARYA Final Result [facility] [address] [place] [address], [facility] * (ABNORMAL) TEG-Standard Global Hemostasis (Rapid TEG with Heparin Effect, Contains a Baseline TEG) (10/17/2025 10:19 AM EST) [facility] Citrated Kaolin Reaction Time (TEGHEPARINASE) 7.2 4.6 - 9.1 minutes 10/17/2025 11:27 AM EST [facility] Citrated Rapid Teg Maximum Amplitude (TEGHEPARINASE) <40.0(L) 52.0 - 70.0 mm 10/17/2025 11:27 AM EST [facility] Citrated Functional Fibrinogen Maximum Amplitude (TEGHEPARINASE) 5.8(L) 15.0 - 32.0 mm 10/17/2025 11:27 AM EST [facility] Citrated Kaolin W/Heparinase Reaction Time (TEGHEPARINASE) 6.7 4.3 - 8.3 minutes 10/17/2025 11:27 AM EST [facility] Citrated Kaolin K-Time (TEGHEPARINASE) 2.9(H) 0.8 - 2.1 minutes 10/17/2025 11:27 AM EST [facility] Citrated Kaolin Angle (TEGHEPARINASE) 64.4 63.0 - 78.0 degrees 10/17/2025 11:27 AM EST [facility] Citrated Kaolin Maximum Amplitude (TEGHEPARINASE) <40.0(L) 52.0 - 69.0 mm 10/17/2025 11:27 AM EST [facility] Citrated Functional Fibrinogen- Fibrinogen Level (TEGHEPARINASE) 156.5(L) 278.0 - 581.0 mg/dL 10/17/2025 11:27 AM EST [facility] Whole Blood (Citrate) 10/17/2025 10:19 AM EST 10/17/2025 10:46 AM EST [facility] BLOOD ORDERABLES Final Re sult Performing Organization Address City/[facility]/ZIP Co de Phone Number [facility] [address] [facility] [address] * Hepatitis C RNA, Quant Reflex to Genotyp (10/17/2025 10:19 AM EST) International Units Not Detected IU/mL 10/19/2025 2:12 PM EST [facility] Comment:Test methodology for HCV RNA quantification is an FDA-approved nucleic acid amplification assay. The Lower Limit of Quantitation (LLOQ) is 15 IU/mL. The linear range of the assay is 15-100,000,000 IU/mL. The Limit of Detection (LoD) is 12.0 IU/mL for EDTA plasma. The reference range is Not Detected. IU log10 See Note log 10 IU/mL 10/19/2025 2:12 PM EST [facility] Comment:HCV RNA not detected . Plasma 10/17/2025 10:1 9 AM EST 10/17/2025 11:09 AM EST [facility] LAB BLOOD ORDERABLES Final Re sult Performing Organization Address [facility] Co de Phone Number [facility] [address] * (ABNORMAL) APTT, No Anticoagulant (10/17/2025 10:19 AM EST) aPTT 41.2(H) 25.5 - 35.0 seconds 10/17/2025 11:02 AM EST [facility] Plasma 10/17/2025 10:1 9 AM EST 10/17/2025 10:46 AM EST [facility] LAB BLOOD ORDERABLES Final Re sult Performing Organization Address City/[facility]/ZIP Co de Phone Number [facility] [address] [facility]. [address] * (ABNORMAL) Fibrinogen (10/17/2025 10:19 AM EST) Fibrinogen 116(L) 218 - 406 mg/dL 10/17/2025 11:08 AM EST [facility] Plasma 10/17/2025 10:1 9 AM EST 10/17/2025 10:46 AM EST [facility] LAB BLOOD ORDERABLES Final Re sult Performing Organization Address [facility]/ZIP Co de Phone Number [facility] [address] [facility] * Magnesium, STAT (10/17/2025 10:18 AM EST) Magnesium 1.7 1.5 - 2.5 mg/dL 10/17/2025 11:46 AM EST [facility] Plasma 10/17/2025 10:1 8 AM EST 10/17/2025 10:46 AM EST [facility] LAB BLOOD ORDERABLES Final Re sult Performing Organization Address [facility] Co de Phone Number [facility] [address] [facility] * (ABNORMAL) Jose-Mims Virus VCA IgG Ab (10/17/2025 10:18 AM EST) Pathologist [facility] EBV VCA IgG Positive( A) Negative 10/17/2025 12:18 PM EST [facility] Comment:Presence of detectab le VCA IgG antibodies. A positive result indicates current or past exposure to Jose-Mims virus. EBV IGG NUM >750.00(H ) 0.00 - 17.99 U/mL 10/17/2025 12:18 PM EST [facility] Serum 10/17/2025 10:1 8 AM EST 10/17/2025 10:46 AM EST [facility] LAB BLOOD ORDERABLES Final Re sult Performing Organization Address City/[facility]/ZIP Co de Phone Number [facility] [address] [facility] * CMV IgG Antibody (10/17/2025 10:18 AM EST) CMV IgG Negative Negative 10/17/2025 12:16 PM EST [facility] CMV IGG NUM <0.20 0.00 - 0.59 U/mL 10/17/2025 12:16 PM EST [facility] Serum 10/17/2025 10:1 8 AM EST 10/17/2025 10:46 AM EST [facility] LAB BLOOD ORDERABLES Final Re sult [facility] [address] [facility] * HIV 1+2 Antibody/Antigen with Reflex (10/17/2025 10:18 AM EST) HIV 1+2 AB/AGN Nonreactive Nonreactive 10/17/2025 12:16 PM EST [facility] Serum 10/17/2025 10:1 8 AM EST 10/17/2025 10:46 AM EST Narrative [facility] - 10/17/2025 12:16 PM EST \HIVRNR [facility] LAB BLOOD ORDERABLES Final Re sult Performing Organization Address City/[facility]/ZIP Co de Phone Number [facility] [address] [facility] * Hepatitis B Core Antibody (10/17/2025 10:18 AM EST) Hep B Core Total Ab Nonreactive Nonreactive 10/17/2025 12:17 PM EST [facility] Comment:Health Department no tified in accordance with reportable infectious disease guidelines. Serum 10/17/2025 10:1 8 AM EST 10/17/2025 10:46 AM EST Narrative [facility] - 10/17/2025 12:17 PM EST A nonreactive final interpretation indicates that anti-HBc antibodies were not detected in the sample; it is possible that the individual is not infected with HBV. [employer] [facility] LAB BLOOD ORDERABLES Final Re sult [facility] [address] [facility]. [address] * Hepatitis C Antibody (10/17/2025 10:18 AM EST) HCV Ab Nonreactive Nonreactive 10/17/2025 12:25 PM EST [facility] Comment:Health Department no tified in accordance with reportable infectious disease guidelines. Serum 10/17/2025 10:1 8 AM EST 10/17/2025 10:46 AM EST [facility] - 10/17/2025 12:25 PM EST Antibodies to HCV not detected; does not exclude the possibility of exposure to HCV. [facility] LAB BLOOD ORDERABLES Final Re sult Performing Organization Address [facility] Co de Phone Number [facility] [address] [facility] * (ABNORMAL) Hepatitis B Surface Antibody, Quantitati (10/17/2025 10:18 AM EST) Hep B S Ab Reactive( A) Nonreactive 10/17/2025 12:29 PM EST [facility] HBSAB NUMBER 260.00(H) 0.00 - 7.99 mIU/mL 10/17/2025 12:29 PM EST [facility] Serum 10/17/2025 10:1 8 AM EST 10/17/2025 10:46 AM EST Narrative [facility] - 10/17/2025 12:29 PM EST Individual is considered immune to HBV infection. [facility] BLOOD ORDERABLES Final Re sult Performing Organization Address City/[facility]/ZIP Co de Phone Number [facility] [address] [facility]. [address] * Hepatitis B surface antigen (10/17/2025 10:18 AM EST) Hep B Surface Ag Nonreactive Nonreactive 10/17/2025 12:21 PM EST [facility] Comment:Health Department no tified in accordance with reportable infectious disease guidelines. Serum 10/17/2025 10:1 8 AM EST 10/17/2025 10:46 AM EST Narrative [facility] - 10/17/2025 12:21 PM EST Specimen is considered negative for HBsAg. [facility] LAB BLOOD ORDERABLES Final Re sult Performing Organization Address [facility] Co de Phone Number [facility] [address] [place] [address]. [address] * Hepatitis A Antibody Total (10/17/2025 10:18 AM EST) Anti-HAV Total (IgG + IgM) Reactive 10/17/2025 12:22 PM EST [facility] Serum 10/17/2025 10:1 8 AM EST 10/17/2025 10:46 AM EST Narrative [facility] - 10/17/2025 12:22 PM EST HAV antibodies detected [facility] LAB BLOOD ORDERABLES Final Re sult Performing Organization Address [facility] de Phone Number [facility] [address] [place] [address]. [address] * Vitamin D 25 Hydroxy (10/17/2025 10:18 AM EST) Vit D, 25-Hydroxy 39.3 30.0 - 100.0 ng/mL 10/17/2025 12:15 PM EST [facility] Comment: Vitamin D deficiency has been defined by the [place] of Medicine (IOM) and an Endocrine Society practice guideline as a level of serum 25-OH Vitamin D less than 20 ng/mL. The Endocrine Society went on to further define Vitamin D insufficiency as a level between 21-29 ng/mL. 1) IOM. 2011 Dietary reference intakes for calcium and D. Espinoza D.C: The National Academies Press 2) Ariadna HUITRON, Priya JONES, Taniya GALE, et al. Evaluation, treatment, and prevention of Vitamin D deficiency: an Endocrine Society clinical practice guideline. JCEM. 2010; 96(3):1911-30. Serum 10/17/2025 10:1 8 AM EST 10/17/2025 10:46 AM EST [facility] LAB BLOOD ORDERABLES Final Re sult [facility] [address] * Antibody Screen (10/17/2025 10:18 AM EST) Antibody Screen Negative 10/17/2025 11:09 AM EST [facility] Blood 10/17/2025 10:1 8 AM EST 10/17/2025 10:26 AM EST Narrative [facility] - 10/17/2025 11:17 AM EST Testing performed by [facility] BLOOD BANK TEST ORDERABLES Fi nal Result Performing Organization Address City/[facility]/ZIP Co de Phone Number [facility] [address] [facility]. [address] * ABO/Rh (10/17/2025 10:18 AM EST) ABO Grouping A 10/17/2025 10:53 AM EST [facility] Rh Type Positive 10/17/2025 10:53 AM EST [facility] Blood 10/17/2025 10:1 8 AM EST 10/17/2025 10:26 AM EST [facility] BLOOD BANK TEST ORDERABLES Fi nal Result Performing Organization Address City/[facility]/ZIP Co de Phone Number [facility] [address] [facility]. [address] * (ABNORMAL) Hepatic Function Panel (10/17/2025 10:18 AM EST) Total Bilirubin 4.9(H) 0.0 - 1.5 mg/dL 10/17/2025 11:47 AM EST [facility] Bilirubin, Direct 1.35(H) 0.00 - 0.40 mg/dL 10/17/2025 11:47 AM EST [facility] AST 39 13 - 39 U/L 10/17/2025 11:47 AM EST [facility] ALT 27 7 - 52 U/L 10/17/2025 11:47 AM EST [facility] Alkaline Phosphatase 143(H) 36 - 125 U/L 10/17/2025 11:47 AM EST [facility] Total Protein 6.5 6.4 - 8.9 g/dL 10/17/2025 11:47 AM EST [facility] Albumin 2.3(L) 3.5 - 5.7 g/dL 10/17/2025 11:47 AM EST [facility] Bilirubin, Indirect 3.55(H) 0.00 - 1.10 mg/dL 10/17/2025 11:47 AM EST [facility] Plasma 10/17/2025 10:1 8 AM EST 10/17/2025 10:46 AM EST us [facility] LAB BLOOD ORDERABLES Final Re sult [facility] [address] [id number] * (ABNORMAL) Renal Function Panel w/EGFR (10/17/2025 10:18 AM EST) Sodium 141 133 - 146 mmol/L 10/17/2025 11:47 AM EST [facility] Potassium 3.3(L) 3.5 - 5.3 mmol/L 10/17/2025 11:47 AM EST [facility] Chloride 110 98 - 110 mmol/L 10/17/2025 11:47 AM EST [facility] CO2 29 21 - 33 mmol/L 10/17/2025 11:47 AM EST [facility] Comment:High lactate dehydro genase concentrations in patient samples may cause falsely increased bicarbonate results. If markedly elevated LDH is observed or suspected, please assess results in conjunction with patient`s clinical presentation. In cases of discrepant results, consider evaluating CO2 in with a blood gas order. Anion Gap 2(L) 3 - 16 mmol/L 10/17/2025 11:47 AM EST [facility] BUN 13 7 - 25 mg/dL 10/17/2025 11:47 AM EST [facility] Creatinine 0.81 0.60 - 1.30 mg/dL 10/17/2025 11:47 AM EST [facility] Glucose 81 70 - 100 mg/dL 10/17/2025 11:47 AM EST [facility] Calcium 8.1(L) 8.6 - 10.3 mg/dL 10/17/2025 11:47 AM EST [facility] Phosphorus 2.8 2.1 - 4.7 mg/dL 10/17/2025 11:47 AM EST [facility] Albumin 2.3(L) 3.5 - 5.7 g/dL 10/17/2025 11:47 AM EST [facility] Osmolality, Calculated 291 278 - 305 mOsm/kg 10/17/2025 11:47 AM EST [facility] EGFR >90 10/17/2025 11:47 AM EST [facility] Comment: As of 2022, the [...] renal disease. For additional information: www.kidney.org Plasma 10/17/2025 10:1 8 AM EST 10/17/2025 10:46 AM EST [facility] LAB BLOOD ORDERABLES Final Re sult [facility] [address] * Hemoglobin A1C (10/17/2025 10:18 AM EST) Hemoglobin A1C 4.0 4.0 - 5.6 % 10/17/2025 1:42 PM EST [facility] Comment: Hemoglobin A1c Interpretation Guidelines: [...] and other individual patient considerations. Whole Blood 10/17/2025 10:1 8 AM EST 10/17/2025 10:46 AM EST [facility] LAB BLOOD ORDERABLES Final Re sult Performing Organization Address City/[facility]/ZIP Co de Phone Number [facility] [address] * (ABNORMAL) Venous Blood Gas, Line/Syringe, STAT (10/17/2025 10:18 AM EST) PH-Line Draw 7.37 7.32 - 7.42 10/17/2025 10:27 AM EST [facility] PCO2-Line Draw 46 41 - 51 mm Hg 10/17/2025 10:27 AM EST [facility] PO2-Line Draw 29 25 - 40 mm Hg 10/17/2025 10:27 AM EST [facility] HCO3-Line Draw 24 24 - 28 mmol/L 10/17/2025 10:27 AM EST [facility] CO2 Content-Line Draw 28 25 - 29 mmol/L 10/17/2025 10:27 AM EST [facility] Base Excess-Line Draw 0.9 -2.0 - 3.0 mmol/L 10/17/2025 10:27 AM EST [facility] %HBO2-Line Draw 38.5(L) 40.0 - 70.0 % 10/17/2025 10:27 AM EST [facility] Carboxyhgb-Rebecca e Draw 1.4 0.0 - 2.0 % 10/17/2025 10:27 AM EST [facility] Comment: CARBOXYHEMOGLOBIN (CO) REFERENCE RANGES: Non-Smokers: <2 % Smokers: <8 % TOXIC: >20 % Methemoglobin- Line Draw 0.6 0.0 - 1.5 % 10/17/2025 10:27 AM EST [facility] Blood, Venous 10/17/2025 10: 18 AM EST 10/17/2025 10:24 AM EST [facility] BLOOD ORDERABLES Final Re sult Performing Organization Address [facility] de Phone Number [facility] [address] [facility] * (ABNORMAL) Protime-INR (10/17/2025 10:18 AM EST) Protime 21.7(H) 12.1 - 15.1 seconds 10/17/2025 11:01 AM EST [facility] INR 1.8(H) 0.9 - 1.1 10/17/2025 11:01 AM EST [facility] Comment: RECOMMENDED THERAPEUTIC RANGES USING INR : Stable oral anticoagulant therapy: 2.0 - 3.0 Mechanical prosthetic heart valve: 2.5 - 3.5 Recurrent acute myocardial infarction: 2.5 - 3.5 Plasma 10/17/2025 10:1 8 AM EST 10/17/2025 10:46 AM EST [facility] BLOOD ORDERABLES Final Re sult Performing Organization Address [facility] Co de Phone Number [facility] [address] [facility] * (ABNORMAL) Differential (10/17/2025 10:18 AM EST) Neutrophils Relative 45.0 40.0 - 80.0 % 10/17/2025 10:59 AM EST [facility] Lymphocytes Relative 34.7 15.0 - 45.0 % 10/17/2025 10:59 AM EST [facility] Monocytes Relative 12.9(H) 0.0 - 12.0 % 10/17/2025 10:59 AM EST [facility] Eosinophils Relative 6.4 0.0 - 8.0 % 10/17/2025 10:59 AM EST [facility] Basophils Relative 1.0 0.0 - 1.0 % 10/17/2025 10:59 AM EST [facility] nRBC 0 0 - 0 /100 WBC 10/17/2025 10:59 AM EST [facility] Neutrophils Absolute 1,845 1,520 - 8,640 /uL 10/17/2025 10:59 AM EST [facility] Lymphocytes Absolute 1,423 570 - 4,860 /uL 10/17/2025 10:59 AM EST [facility] Monocytes Absolute 529 0 - 1,296 /uL 10/17/2025 10:59 AM EST [facility] Eosinophils Absolute 262 0 - 864 /uL 10/17/2025 10:59 AM EST [facility] Basophils Absolute 41 0 - 108 /uL 10/17/2025 10:59 AM [facility] Whole Blood 10/17/2025 10:1 8 AM EST 10/17/2025 10:46 AM EST [facility] LAB BLOOD ORDERABLES Final Re sult Performing Organization Address City/State/[facility] Co de Phone Number [facility] [address] * (ABNORMAL) CBC (10/17/2025 10:18 AM EST) WBC 4.1 3.8 - 10.8 10E3/uL 10/17/2025 10:59 AM EST [facility] RBC 3.32(L) 4.20 - 5.80 10E6/uL 10/17/2025 10:59 AM EST [facility] Hemoglobin 11.2(L) 13.2 - 17.1 g/dL 10/17/2025 10:59 AM EST [facility] Hematocrit 32.9(L) 38.5 - 50.0 % 10/17/2025 10:59 AM EST [facility] MCV 99.1 80.0 - 100.0 fL 10/17/2025 10:59 AM EST [facility] MCH 33.8(H) 27.0 - 33.0 pg 10/17/2025 10:59 AM EST [facility] MCHC 34.1 32.0 - 36.0 g/dL 10/17/2025 10:59 AM EST [facility] RDW 17.3(H) 11.0 - 15.0 % 10/17/2025 10:59 AM EST [facility] Platelets 61(L) 140 - 400 10E3/uL 10/17/2025 10:59 AM EST [facility] MPV 8.2 7.5 - 11.5 fL 10/17/2025 10:59 AM EST [facility] Whole Blood 10/17/2025 10:1 8 AM EST 10/17/2025 10:46 AM EST [facility] BLOOD ORDERABLES Final Re sult Performing Organization Address City/[facility] Co de Phone Number [facility] [address] [place] [address] * Toxoplasma gondii Antibody, IgG (10/17/2025 10:18 AM EST) Toxoplasma Gondii IgG <3.0 0.0 - 7.1 IU/mL 10/18/2025 4:54 AM EST [facility] Comment: Negative <7.2 Equivocal 7.2 - 8.7 Positive >8.7 Serum 10/17/2025 10:1 8 AM EST 10/18/2025 5:06 AM EST Narrative [facility] - 10/18/2025 5:06 AM EST PERFORMED AT: [address] [id number] [employer] MANAGER: Mateo Miller, PhD PHONE: [phone] [facility] LAB BLOOD ORDERABLES Final Re sult [facility] [address] [place] [address], [facility] * X-ray Portable Chest (10/17/2025 10:11 AM EST) Anatomical Region Laterality Modality Chest Radiographic Liseth ging 10/17/2025 9:47 AM EST Impressions 10/17/2025 10:21 AM EST IMPRESSION: No acute cardiopulmonary abnormality, within the slightly under inspiratory chest film. Report Verified by: Hayes Meadows MD at 10/17/2025 10:21 AM EST Narrative 10/17/2025 10:21 AM EST EXAM: XR PORTABLE CHEST INDICATION: Encounter for other preprocedural examination TECHNIQUE: 1 view of the chest. COMPARISON: CT chest, September 10, 2025. FINDINGS: Medical Devices: None. Heart and Mediastinum: Cardiomediastinal silhouette is stable. Lungs and Pleura: Slightly under inspiratory chest film. A few small scattered scarlike opacities noted. Bones and soft tissues: No acute abnormalities. Mild arthritic changes noted in the bilateral AC joints. Procedure Note Hayes Meadows MD - 10/17/2025 EXAM: XR PORTABLE CHEST INDICATION: Encounter for other preprocedural examination TECHNIQUE: 1 view of the chest. COMPARISON: CT chest, September 10, 2025. FINDINGS: Medical Devices: None. Heart and Mediastinum: Cardiomediastinal silhouette is stable. Lungs and Pleura: Slightly under inspiratory chest film. A few smallscattered scarlike opacities noted. Bones and soft tissues: No acute abnormalities. Mild arthritic changesnoted in the bilateral AC joints. IMPRESSION: No acute cardiopulmonary abnormality, within the slightly underinspiratory chest film. Report Verified by: Hayes Meadows MD at 10/17/2025 10:21 AM EST [facility] IMG DIAGNOSTIC IMAGING ORDERA BLES Final Result documented in this encounter Visit Diagnoses Diagnosis S/P liver transplant (CMS-HCC)- Primary End stage liver disease (CMS-HCC) documented in this encounter Administered Medications Inactive Administered Medications - up to 3 most recent administrations Medication Order MAR Action Action Date Dose Rate Site acetaminophen (TYLENOL) tablet 975 mg 975 mg, Oral, Every 8 hours, First dose on 10/20/25 at 0730 Given 10/22/2025 8:42 AM EST 975 mg Given 10/21/2025 4:20 PM EST 975 mg Given 10/21/2025 6:28 AM EST 975 mg acetylcysteine (ACETADOTE) 200 mg/mL (20 %) 10 g in sodium chloride 0.45% (1/2 NS) 1,000 mL infusion 10 g (rounded from 9.98 g = 100 mg/kg 99.8 kg), Intravenous, Administer over 16 Hours, Continuous, Watch for signs/symptoms of anaphylactic reaction. Stop infusion and notify physician. *SECOND DOSE*Patients treated with N-Acetyl Cysteine (NAC) for an acetaminophen overdose may generate a false low result for the following labs: cholesterol, uric acid, lactate, and lipase, Being used to treat acetaminophen toxicity? Yes New Bag 10/18/2025 5:16 AM EST 10 g 62. 5 mL/hr acetylcysteine (ACETADOTE) 200 mg/mL (20 %) 20 g in sodium chloride 0.45% (1/2 NS) 500 mL infusion 20 g (rounded from 19.96 g = 200 mg/kg 99.8 kg), Intravenous, Administer over 4 Hours, Continuous, Watch for signs/symptoms of anaphylactic reaction. Stop Infusion and notify physician. *LOADING DOSE*Patients treated with N-Acetyl Cysteine (NAC) for an acetaminophen overdose may generate a false low result for the following labs: cholesterol, uric acid, lactate, and lipase, Being used to treat acetaminophen toxicity? Yes New Bag 10/18/2025 1:18 AM EST 20 g 125 mL/hr acyclovir (ZOVIRAX) tablet 800 mg 800 mg, Oral, 2 times daily, First dose on Wed10/19/25 at 1500 Given 10/22/2025 9:49 AM EST 800 mg Given 10/21/2025 8:02 PM EST 800 mg Given 10/21/2025 11:16 AM EST 800 mg albumin human 25% 50 mL, Intravenous, Every 30 min, First dose on 10/22/25 at 0830, For 2 doses, In Emergencies, may administer as rapidly as needed to improve clinical status., Select indication for use: Hepatic Resection/Liver Transplantation, at 100 mL/hr New Bag 10/22/2025 11:19 AM EST 50 mLs 100 mL/hr New Bag 10/22/2025 10:38 AM EST 50 mLs 100 mL/hr AMPicillin 1 g in sodium chloride 0.9% 100 mL IVPB ([id number]) 1 g, Intravenous, at 200 mL/hr, Every 6 hours, First dose on Wed10/17/25 at 2300, For 7 doses, Dosage may need to be adjusted for renal dysfunction. Full dose is 1g IV q6h Use [id number] Adapter - Mix Thoroughly Before Administration, Post-op New Bag 10/19/2025 8:56 AM EST 1 g 200 mL/ hr New Bag 10/19/2025 3:29 AM EST 1 g 200 mL/hr New 10/18/2025 8:39 PM EST 1 g 200 mL/hr calcium gluconate in sodium chloride, iso-osm 2 gram/100 mL IV solution 2 g 2 g, Intravenous, at 100 mL/hr, Every hour, First dose on Wed10/22/25 at 0800, For 3 doses, Infuse a total of 6 grams over 3 hours via Peripheral Line Access OR Central Line Access. New 10/22/2025 12:20 PM EST 2 g 100 mL/hr New 10/22/2025 11:13 AM EST 2 g 100 mL/hr Rate/Dose Verify 10/22/2025 10:00 AM EST 100 mL /hr cefTRIAXone (ROCEPHIN) 2 g in sodium chloride 0.9% 20 mL IV Push 2 g, Intravenous, at 240 mL/hr, Once, On Maris 10/18/25 at 1100, For 1 dose, Give 24 hours after pre-op dose. ADMINISTER IV PUSH. Infuse over 5 minutes. Draw up 20 mL Sodium Chloride 0.9% into empty syringe. Inject 20 mL into vial of Ceftriaxone. Shake well. Withdraw volume into syringe and administer immediately., Post-op Given 10/18/2025 11:38 AM EST 2 g 240 mL/hr dextrose 10%-water (D10W) IV soln 12.5 g, Intravenous, Every 15 min PRN, Low blood sugar, for glucose < 70 and alert but can not be corrected, orally or via feeding tube, Starting on Wed10/19/25 at 1127, Recheck blood sugar in 15 minutes and repeat treatment if glucose still < 70. For Smart Pump: Set volume to be infused; 125 ml for 12.5 grams or 250 mL for 25 grams. dextrose 10%-water (D10W) IV soln 25 g, Intravenous, Every 15 min PRN, Low blood sugar, for glucose < 70 and not alert, Starting on Wed10/19/25 at 1127, Recheck glucose in 15 minutes and repeat treatment if glucose still < 70. For Smart Pump: Set volume to be infused; 125 ml for 12.5 grams or 250 mL for 25 grams. electrolyte-R (pH 7.4) (NORMOSOL-R pH 7.4) IV solution 75 mL/hr, Intravenous, Continuous, Starting on Maris 10/18/25 at 0830 New Bag 10/19/2025 6:54 PM EST 75 mL/hr 75 mL/hr Rate/Dose Verify 10/19/2025 5:57 AM EST 75 mL/h r Restarted 10/19/2025 4:13 AM EST 75 mL/hr famotidine (PF) (PEPCID) injection 20 mg 20 mg, Intravenous, Every 12 hours scheduled (2 times per day), First dose on Wed10/17/25 at 2300, Post-op Given 10/17/2025 11:22 PM EST 20 mg FentaNYL (SUBLIMAZE) 2500 mcg (10 mcg/mL) in NSS 250 mL IV infusion Intravenous, at 0-12.5 mL/hr, Continuous, Starting on Wed10/17/25 at 2330, If the patient is pharmacologically paralyzed DO NOT titrate this medication; maintain the last effective dose before the paralytic was administered. Start continuous infusion at initial ordered rate. Titrate infusion no more frequent than every 5 minutes to goal as defined in order. Provide bolus from bag with every rate increase of fentaNYL infusion. When fentaNYL infusion LESS THAN 25 mcg/hr, consider discontinuation of infusion and use of bolus-only PRN therapy. If CPOT GREATER THAN or EQUAL to 3 AND off infusion; provide fentaNYL bolus from bag per PRN order. If unable to maintain CPOT LESS THAN 3 within 5 minutes of bolus-only approach (off infusion); administer second fentaNYL bolus and restart fentaNYL continuous infusion at most recent recorded infusion rate. Post-SAT, refer to ABCDEF bundle guidelines regarding titration of analgesic and sedative infusions, Initial starting rate: 50 mcg/hr, Titrate by: 10-50 mcg/hr, Titration interval: no more frequent than: 5 minutes, Clinical Goal: CPOT =, Goal CPOT: <3, Contact Provider: If goal cannot be maintained at highest permissible dose New Bag 10/17/2025 10:58 PM EST 75 mcg/hr 7.5 mL/hr furosemide (LASIX) tablet 40 mg 40 mg, Oral, Daily, First dose on Wed10/22/25 at 0930 Given 10/22/2025 11:08 AM EST 40 mg heparin (porcine) injection 5,000 Units 5,000 Units, Subcutaneous, Every 8 hours scheduled (3 times per day), First dose on Wed10/17/25 at 1000, On hold since Wed10/18/2025 at 2347 until manually unheld Given 10/18/2025 8:32 PM EST 5,000 Units Left Arm Given 10/18/2025 3:14 PM EST 5,000 Units A bdominal Tissue Given 10/18/2025 5:07 AM EST 5,000 Units R ight Anterior Thigh HYDROmorphone (DILAUDID) injection 0.5 mg 0.5 mg, Intravenous, Every 4 hours PRN, moderate pain (NRS 4-6) or if patient is non-communicative (CPOT 3-5), Starting on Wed10/18/25 at 0841, For 48 hours, If on IV and PO pain medications, use IV if patient cannot tolerate oral. Given 10/19/2025 7:50 AM EST 0.5 mg insulin (HumuLIN R) infusion - TITRATABLE NURSING PROTOCOL (HYPERGLYCEMIA) 0-28 Units/hr (0-28 mL/hr), Intravenous, Continuous, Starting on Wed10/17/25 at 2300, Discontinue all oral anti-diabetic medications. HIGH ALERT MEDICATION Rate/Dose Change 10/19/2025 7:10 AM EST 2.5 Units/hr 2.5 mL/hr Rate/Dose Verify 10/19/2025 5:57 AM EST 3 Units/hr 3 mL/hr New Bag 10/19/2025 2:07 AM EST 3 Units/hr 3 mL/hr insulin lispro (humaLOG/ADMELOG) injection 0-12 Units 0-12 Units, Subcutaneous, 3 times daily before meals, First dose on Wed10/19/25 at 1830, HIGH ALERT MEDICATION Given 10/21/2025 5:07 PM EST 4 Units Left Arm Given 10/21/2025 1:23 PM EST 2 Units Le ft Arm Given 10/20/2025 5:58 PM EST 2 Units Le ft Arm insulin lispro (humaLOG/ADMELOG) injection 4 Units 4 Units, Subcutaneous, Once, On Wed10/20/25 at 0600, For 1 dose, HIGH ALERT MEDICATION Given 10/20/2025 6:04 AM EST 4 Units Abdominal Tissue insulin regular human (HumuLIN R/NovoLIN R) injection 0-10 Units 0-10 Units, Subcutaneous, Every 6 hours, First dose on Wed10/19/25 at 1130, Do Not Administer more frequently than every 6 hours. Given 10/19/2025 12:38 PM EST 2 Units Abdominal Tissue magnesium sulfate in sterile water 100 mL IVPB 4 g 4 g, Intravenous, at 25 mL/hr, Once, On Wed10/22/25 at 0800, For 1 dose Rate/Dose Verify 10/22/2025 11:00 AM EST 25 mL/hr Rate/Dose Verify 10/22/2025 10:00 AM EST 25 mL/ hr New Bag 10/22/2025 9:19 AM EST 4 g 25 mL/hr magnesium sulfate in sterile water 50 mL IVPB 2 g 2 g, Intravenous, Administer over 120 Minutes, Once, On Wed10/18/25 at 0130, For 1 dose New Bag 10/18/2025 1:27 AM EST 2 g 25 mL/hr methocarbamoL (ROBAXIN) injection 500 mg 500 mg, Intravenous, Every 8 hours, First dose on Wed10/18/25 at 0900, For 3 days, May be administered slow IV Push; no faster than 3 mL/min. Do not exceed 3 grams per 24 hours. Contraindicated in patients with renal dysfunction. Given 10/20/2025 2:01 AM EST 500 mg Given 10/19/2025 5:19 PM EST 500 mg Given 10/19/2025 8:54 AM EST 500 mg methocarbamoL (ROBAXIN) tablet 500 mg 500 mg, Oral, 4 times a day, First dose on Wed10/20/25 at 1300 Given 10/22/2025 8:43 AM EST 500 mg Given 10/21/2025 8:02 PM EST 500 mg Given 10/21/2025 4:20 PM EST 500 mg methylPREDNISolone sod suc(PF) (SOLU-medrol) SolR 125 mg 125 mg, Intravenous, Once, On 10/19/25 at 0900, For 1 dose, POD #2 - Dose. Mix until dissolved and use immediately. MIX THOROUGHLY PRIOR TO ADMINISTRATION., Post-op Given 10/19/2025 8:54 AM EST 125 mg methylPREDNISolone sod suc(PF) (SOLU-medrol) SolR 50 mg 50 mg, Intravenous, Once, On 10/21/25 at 0900, For 1 dose, POD #4 - Dose. Mix until dissolved and use immediately. MIX THOROUGHLY PRIOR TO ADMINISTRATION. Given 10/21/2025 8:23 AM EST 50 mg methylPREDNISolone sod suc(PF) (SOLU-medrol) SolR 60 mg 60 mg, Intravenous, Once, On 10/20/25 at 0900, For 1 dose, POD # 3 - Dose. Mix until dissolved and use immediately. MIX THOROUGHLY PRIOR TO ADMINISTRATION., Post-op Given 10/20/2025 9:38 AM EST 60 mg methylPREDNISolone sodium succinate (SOLU-medrol) 250 mg in sodium chloride 0.9 % 100 mL IVPB 250 mg, Intravenous, at 200 mL/hr, Once, On Maris 10/18/25 at 0900, For 1 dose, POD #1 - Dose, Administer over 30 Minutes, Post-op New Bag 10/18/2025 10:18 AM EST 250 mg 200 m L/hr mycophenolate (CELLCEPT) 500 mg in dextrose 5% in water (D5W) 50 mL IVPB 500 mg, Intravenous, Administer over 2 Hours, 2 times daily, LEVEL 2 HAZARDOUS MEDICATION New Bag 10/19/2025 9:12 PM EST 500 mg 25 mL/hr New Bag 10/19/2025 11:22 AM EST 500 mg 25 mL/hr Rate/Dose Verify 10/18/2025 10:00 PM EST 25 mL/ hr mycophenolate (CELLCEPT) capsule 500 mg 500 mg, Oral, 2 times daily, First dose on 10/20/25 at 0930, LEVEL 2 HAZARDOUS MEDICATION Given 10/22/2025 8:43 AM EST 500 mg Given 10/21/2025 8:02 PM EST 500 mg Given 10/21/2025 8:20 AM EST 500 mg NIFEdipine (PROCARDIA-XL) 24 hr tablet 30 mg 30 mg, Oral, Daily, First dose on 10/22/25 at 1300, DO NOT CRUSH Given 10/22/2025 1:48 PM EST 30 mg norepinephrine (LEVOPHED) 16 mg/250 mL (64 mcg/mL) infusion Intravenous, at 0-28.1 mL/hr, Continuous, Starting on Wed10/17/25 at 1030, For 24 hours, FOR O.R. USE ONLY. Titrate in O.R. based on MAP., Intra-op, To be given: intra-op Rate/Dose Change 10/18/2025 4:30 AM EST 1 mcg/min 0.9 mL/hr Rate/Dose Change 10/18/2025 3:30 AM EST 2 mcg/min 1.9 mL/ hr Rate/Dose Change 10/18/2025 12:03 AM EST 3 mcg/min 2.8 mL /hr oxyCODONE (ROXICODONE) immediate release tablet 2.5 mg 2.5 mg, Oral, Every 4 hours PRN, moderate pain (NRS 4-6) or if patient is non-communicative (CPOT 3-5), Starting on 10/20/25 at 0715, If on IV and PO pain medications, use IV if patient cannot tolerate oral. oxyCODONE (ROXICODONE) immediate release tablet 5 mg 5 mg, Oral, Every 4 hours PRN, severe pain (NRS 7-10) or if patient is non-communicative (CPOT 6-8), Starting on 10/20/25 at 0715, If on IV and PO pain medications, use IV if patient cannot tolerate oral. pantoprazole (PROTONIX) EC tablet 40 mg 40 mg, Oral, Daily6, First dose on Wed10/21/25 at 0600, Do Not Crush Given 10/22/2025 5:44 AM EST 40 mg Given 10/21/2025 6:28 AM EST 40 mg pantoprazole (PROTONIX) injection 40 mg 40 mg, Intravenous, Daily6, First dose (after last modification) on Maris 10/18/25 at 1130, Dilute each 40 mg vial with 10 mL of Normal Saline Given 10/20/2025 5:34 AM EST 40 mg Given 10/19/2025 4:11 AM EST 40 mg Given 10/18/2025 11:38 AM EST 40 mg potassium chloride (KCl)/Sterile water 50 mL 20 mEq/50 mL IVPB 20 mEq 20 mEq, Intravenous, Administer over 60 Minutes, Every hour, First dose on Maris 10/18/25 at 0200, For 2 doses, FOR INFUSION VIA CENTRAL LINE ONLY MAX INFUSION RATE VIA CENTRAL LINE IS 20 mEq/hr (50 mL/hr). Cardiac monitoring required when infused at 20 mEq/hr. New Bag 10/18/2025 2:31 AM EST 20 mEq 50 mL/hr New Bag 10/18/2025 1:28 AM EST 20 mEq 50 mL/hr potassium chloride (KCl)/Sterile water 50 mL 20 mEq/50 mL IVPB 20 mEq 20 mEq, Intravenous, Administer over 60 Minutes, Every hour, First dose on Maris 10/18/25 at 0800, For 3 doses, CENTRAL LINE: potassium chloride 60 mEq IVPB replacement (20 mEq/50 mL Q1h x 3) MAX INFUSION RATE VIA CENTRAL LINE IS 20 mEq/hr (50 mL/hr). Cardiac monitoring required when infused at 20 mEq/hr. New Bag 10/18/2025 10:15 AM EST 20 m Eq 50 mL/hr New Bag 10/18/2025 8:20 AM EST 20 mEq 50 mL/hr New Bag 10/18/2025 7:14 AM EST 20 mEq 50 mL/hr potassium chloride (KCl)/Sterile water 50 mL 20 mEq/50 mL IVPB 20 mEq 20 mEq, Intravenous, Administer over 60 Minutes, Every hour, First dose on Wed10/19/25 at 0400, For 2 doses, CENTRAL LINE: potassium chloride 40 mEq IVPB replacement (20 mEq/50 mL Q1h x 2) MAX INFUSION RATE VIA CENTRAL LINE IS 20 mEq/hr (50 mL/hr). Cardiac monitoring required when infused at 20 mEq/hr. Rate/Dose Verify 10/19/2025 5:57 AM EST 50 mL /hr New Bag 10/19/2025 5:35 AM EST 20 mEq 50 mL/hr Rate/Dose Verify 10/19/2025 4:13 AM EST 50 mL/h r potassium chloride (KLOR-CON M20) CR tablet 40 mEq 40 mEq, Oral, Once, On 10/21/25 at 0800, For 1 dose, FOR PATIENTS UNABLE TO SWALLOW LARGE TABLETS, but can take liquids orally: Place tablet(s) in room temperature or warm water (@ 2-4 ounces) and allow to disintegrate for ~ 30 seconds. Then stir well and administer immediately before particles settle. NOTE: not all particles will go into solution. DO NOT CRUSH or CHEW; TABLET(S) MAY BE SPLIT Given 10/21/2025 8:20 AM EST 40 mEq potassium chloride (KLOR-CON M20) CR tablet 40 mEq 40 mEq, Oral, Once, On Wed10/22/25 at 0630, For 1 dose, FOR PATIENTS UNABLE TO SWALLOW LARGE TABLETS, but can take liquids orally: Place tablet(s) in room temperature or warm water (@ 2-4 ounces) and allow to disintegrate for ~ 30 seconds. Then stir well and administer immediately before particles settle. NOTE: not all particles will go into solution. DO NOT CRUSH or CHEW; TABLET(S) MAY BE SPLIT Given 10/22/2025 8:42 AM EST 40 mEq potassium chloride (KLOR-CON M20) CR tablet 40 mEq 40 mEq, Oral, Once, On 10/22/25 at 1030, For 1 dose, FOR PATIENTS UNABLE TO SWALLOW LARGE TABLETS, but can take liquids orally: Place tablet(s) in room temperature or warm water (@ 2-4 ounces) and allow to disintegrate for ~ 30 seconds. Then stir well and administer immediately before particles settle. NOTE: not all particles will go into solution. DO NOT CRUSH or CHEW; TABLET(S) MAY BE SPLIT Given 10/22/2025 11:08 AM EST 40 mEq predniSONE (DELTASONE) tablet 20 mg 20 mg, Oral, Daily, First dose on Maris 10/25/25 at 0900, Start daily PO dose on POD #8 predniSONE (DELTASONE) tablet 25 mg 25 mg, Oral, Once, On Wed10/24/25 at 0900, For 1 dose, POD #7 predniSONE (DELTASONE) tablet 30 mg 30 mg, Oral, Once, On Tu10/23/25 at 0900, For 1 dose, POD #6 predniSONE (DELTASONE) tablet 40 mg 40 mg, Oral, Once, On Wed10/22/25 at 0900, For 1 dose, POD #5 Given 10/22/2025 8:43 AM EST 40 mg propofol (DIPRIVAN) infusion 10 mg/mL Intravenous, at 0-12 mL/hr, Continuous, Starting on Wed10/17/25 at 2330, Do not administer through the same I.V. catheter with blood or plasma. Tubing and any unused portions of propofol vials should be discarded after 12 hours. If patient is paralyzed: Do not titrate - follow policy [id number]. Start infusion if unable to maintain goal RASS with fentanyl or other analgesic medications alone When propofol infusion is < 10 mcg/kg/min consider discontinuation of infusion. Post-SAT, refer to ABCDEF bundle guidelines regarding titration of analgesic and sedative infusions. Patient must have secured airway including mechanical ventilation, Is this patient's airway secure and mechanically ventilated? Yes, Initial starting rate: 10 mcg/kg/min, Titrate by: 2 - 20 mcg/kg/min, Titration interval: no more frequent than: 2 minutes, Clinical Indication: RASS (see goal target arousal level on storyboard), Contact Provider: if goal cannot be maintained at highest possible dose Rate/Dose Change 10/18/2025 7:19 AM EST 7.5 mcg/kg/min 4.5 mL/hr New Bag 10/18/2025 3:09 AM EST 10 mcg/kg/min 6 mL/hr Rate/Dose Change 10/18/2025 2:09 AM EST 15 mcg/kg/min 9 mL /hr sod phos di, mono-K phos mono (K-PHOS NEUTRAL) 250 mg tablet Tab 250 mg 250 mg, Oral, Every 2 hours, First dose on 10/21/25 at 0830, For 3 doses, Phosphorus level 1.8 - 2.9: Weight Less than 70 k tablet every 2 hours x 3 doses ( 3 tablets = 24 mmol Phosphorus, 3.3 mEq Potassium). May give orally or per feeding tube. Each 250 mg tablet of KPhos Neutral contains: Phosphorus = 8 mmol; Sodium = 13 mEq; Potassium = 1.1 mEq Given 10/21/2025 12:31 PM EST 250 mg Given 10/21/2025 11:16 AM EST 250 mg Given 10/21/2025 8:20 AM EST 250 mg sod phos di, mono-K phos mono (K-PHOS NEUTRAL) 250 mg tablet Tab 500 mg 500 mg, Oral, Every 4 hours, First dose on 10/22/25 at 0700, For 2 doses, Phosphorus Level 1.8 - 2.9: Weight 70 - 100 k tablets every 4 hours x 2 doses. Total 4 tablets (Phosphorus 32 mmol, Potassium 4.4 mEq). May give orally or per feeding tube. Each 250 mg tablet of KPhos Neutral contains: Phosphorus = 8 mmol; Sodium = 13 mEq; Potassium = 1.1 mEq Given 10/22/2025 12:10 PM EST 500 mg Given 10/22/2025 8:42 AM EST 500 mg sulfamethoxazole-trimethoprim (BACTRIM) 400-80 mg per tablet 1 tablet 1 tablet, Oral, Daily, First dose on 10/20/25 at 2100 Given 10/22/2025 8:42 AM EST 1 tablet Given 10/21/2025 8:20 AM EST 1 tablet Given 10/20/2025 8:23 PM EST 1 tablet tacrolimus (PROGRAF) capsule 2 mg 2 mg, Oral, 2 times daily, First dose on Maris 10/18/25 at 2100, LEVEL 2 HAZARDOUS MEDICATION Given 10/19/2025 8:54 AM EST 2 mg Given 10/18/2025 8:32 PM EST 2 mg tacrolimus (PROGRAF) capsule 2 mg 2 mg, Oral, Once, On 10/20/25 at 2100, For 1 dose, LEVEL 2 HAZARDOUS MEDICATION Given 10/20/2025 8:14 PM EST 2 mg tacrolimus (PROGRAF) capsule 3 mg 3 mg, Oral, 2 times daily, First dose (after last modification) on Wed10/19/25 at 2100, LEVEL 2 HAZARDOUS MEDICATION Given 10/20/2025 9:33 AM EST 3 mg Given 10/19/2025 9:09 PM EST 3 mg tacrolimus (PROGRAF) capsule 3 mg 3 mg, Oral, 2 times daily, First dose (after last modification) on 10/21/25 at 0900, LEVEL 2 HAZARDOUS MEDICATION Given 10/22/2025 9:48 AM EST 3 mg Given 10/21/2025 8:02 PM EST 3 mg Given 10/21/2025 8:20 AM EST 3 mg vasopressin (VASOSTRICT) 40 units in sodium chloride 0.9% 100 mL infusion Intravenous, at 4.5 mL/hr, Continuous, Starting on Wed10/17/25 at 2330, CENTRAL LINE PREFERRED Associate Infusion Pump 10/18/2025 7:02 AM EST 0.03 Units/min 4.5 mL/bathroom tiling professional Infusion Pump 10/17/2025 10:54 PM EST 0.03 Units /min 4.5 mL/hr documented in this encounter Active and Recently Administered Medications Times are shown in EST. Scheduled Medication Order 10/20/2025 10/21/2025 10/22/2025 acetaminophen (TYLENOL) tablet 975 mg 975 mg, Oral, Every 8 hours, First dose on 10/20/25 at 0730 0933 (Given - Provider: Stacy Zamorano RN)1630 (Given - Provider: Stacy Zamorano RN)2341 (Hold - Provider: Anne Vail RN - Reason: Other - Comment: patient requested to get sleep) 0628 (Given - Provider: Anne Vail RN)1620 (Given - Provider: Stacy Zamorano RN)2258 (Not Given - Provider: Anne Vail RN - Reason: Other - Comment: Patient requested not to be woke up!) 0842 (Given - Provider: Charbel Ji RN)1601 (Not Given - Provider: Charbel Ji RN - Reason: Patient/family refused) acyclovir (ZOVIRAX) tablet 800 mg 800 mg, Oral, 2 times daily, First dose on Wed10/19/25 at 1500 0933 (Given - Provider: Stacy Zamorano RN)2013 (Given - Provider: Anne Vail RN) 1116 (Given - Provider: Stacy Zamorano RN)2001 (Given - Provider: Anne Vail RN) 0949 (Given - Provider: Charbel Ji, SILVIO) albumin human 25% (COMPLETED) 50 mL, Intravenous, Every 30 min, First dose on Wed10/22/25 at 0830, For 2 doses, In Emergencies, may administer as rapidly as needed to improve clinical status., Select indication for use: Hepatic Resection/Liver Transplantation, at 100 mL/hr 1038 (New Bag - Provider: Charbel Ji RN)1119 (New Bag - Provider: Charbel Ji RN) calcium gluconate in sodium chloride, iso-osm 2 gram/100 mL IV solution 2 g (COMPLETED) 2 g, Intravenous, at 100 mL/hr, Every hour, First dose on Wed10/22/25 at 0800, For 3 doses, Infuse a total of 6 grams over 3 hours via Peripheral Line Access OR Central Line Access. 0921 (New Bag - Provider: Charbel Ji RN)1000 (Rate/Dose Verify - Provider: Charbel Ji RN)1023 (Paused - Provider: Charbel Ji RN)1113 (New Bag - Provider: Charbel Ji RN)1220 (New Bag - Provider: Charbel Ji RN) furosemide (LASIX) tablet 40 mg 40 mg, Oral, Daily, First dose on Wed10/22/25 at 0930 1108 (Given - Provider: Charbel Ji RN) heparin (porcine) injection 5,000 Units 5,000 Units, Subcutaneous, Every 8 hours scheduled (3 times per day), First dose on Wed10/17/25 at 1000, On hold since Wed10/18/2025 at 2347 until manually unheld 0500 (Hold - Provider: Anne Vail RN - Reason: Other)1300 (Automatically Held - Provider: Chelsie Haley MD)2100 (Hold - Provider: Anne Vail RN - Reason: Other) 0500 (Hold - Provider: Anne Vail RN - Reason: Other)1300 (Automatically Held - Provider: Chelsie Haley MD)2100 (Hold - Provider: Anne Vail RN - Reason: Other) 0500 (Hold - Provider: Anne Vail RN - Reason: Other)1300 (Canceled Entry - Provider: Charbel Ji RN - Comment: Held by provider)2125 (Unheld by provider - Provider: Automatic Discharge Provider) insulin lispro (humaLOG/ADMELOG) injection 0-12 Units 0-12 Units, Subcutaneous, 3 times daily before meals, First dose on Wed10/19/25 at 1830, HIGH ALERT MEDICATION 0927 (Given - Provider: Stacy Zamorano RN)1431 (Given - Provider: Carlos Saldana RN)1758 (Given - Provider: Stacy Zamorano RN) 0819 (Not Given - Provider: Stacy Zamorano RN - Reason: Order parameters not met)1323 (Given - Provider: Stacy Zamorano RN)1707 (Given - Provider: Stacy Zamorano RN) 1039 (Not Given - Provider: Charbel Ji RN - Reason: Order parameters not met - Comment: blood glucose 96)1504 (Not Given - Provider: Charbel Ji RN - Reason: Patient/family refused - Comment: Did not eat and is declining.) insulin lispro (humaLOG/ADMELOG) injection 4 Units (COMPLETED) 4 Units, Subcutaneous, Once, On 10/20/25 at 0600, For 1 dose, HIGH ALERT MEDICATION 0604 (Given - Provider: Anne Vail RN) magnesium sulfate in sterile water 100 mL IVPB 4 g (COMPLETED) 4 g, Intravenous, at 25 mL/hr, Once, On 10/22/25 at 0800, For 1 dose 0919 (New Bag - Provider: Charbel Ji RN)1000 (Rate/Dose Verify - Provider: Charbel Ji RN)1100 (Rate/Dose Verify - Provider: Charbel Ji RN) methocarbamoL (ROBAXIN) injection 500 mg (CANCELED) 500 mg, Intravenous, Every 8 hours, First dose on Maris 10/18/25 at 0900, For 3 days, May be administered slow IV Push; no faster than 3 mL/min. Do not exceed 3 grams per 24 hours. Contraindicated in patients with renal dysfunction. 0201 (Given - Provider: Anne Vail RN) methocarbamoL (ROBAXIN) tablet 500 mg 500 mg, Oral, 4 times a day, First dose on 10/20/25 at 1300 1346 (Given - Provider: Stacy Zamorano RN)1714 (Given - Provider: Stacy Zamorano RN)2014 (Given - Provider: Anne Vail RN) 0820 (Given - Provider: Stacy Zamorano RN)1231 (Given - Provider: Stacy Zamorano RN)1620 (Given - Provider: Stacy Zamorano RN)2001 (Given - Provider: Anne Vail RN) 0843 (Given - Provider: Charbel Ji RN)1320 (Not Given - Provider: Charbel Ji RN - Reason: Patient/family refused - Comment: Pt. stated I feel pretty good, I don't really want to take that. ) methylPREDNISolone sod suc(PF) (SOLU-medrol) SolR 50 mg (COMPLETED)(Linked Group 1) 50 mg, Intravenous, Once, On 10/21/25 at 0900, For 1 dose, POD #4 - Dose. Mix until dissolved and use immediately. MIX THOROUGHLY PRIOR TO ADMINISTRATION. 08 (Given - Provider: Stacy Zamorano RN) methylPREDNISolone sod suc(PF) (SOLU-medrol) SolR 60 mg (COMPLETED)(Linked Group 1) 60 mg, Intravenous, Once, On 10/20/25 at 0900, For 1 dose, POD # 3 - Dose. Mix until dissolved and use immediately. MIX THOROUGHLY PRIOR TO ADMINISTRATION., Post-op 937 (Given - Provider: Stacy Zamorano RN) mycophenolate (CELLCEPT) capsule 500 mg 500 mg, Oral, 2 times daily, First dose on 10/20/25 at 0930, LEVEL 2 HAZARDOUS MEDICATION 932 (Given - Provider: Stacy Zamorano RN)2013 (Given - Provider: Anne Vail RN) 819 (Given - Provider: Stacy Zamorano, SILVIO)2001 (Given - Provider: Anne Vail RN) 0843 (Given - Provider: Charbel Ji RN) NIFEdipine (PROCARDIA-XL) 24 hr tablet 30 mg 30 mg, Oral, Daily, First dose on 10/22/25 at 1300, DO NOT CRUSH 1348 (Given - Provider: Charbel Ji RN) pantoprazole (PROTONIX) EC tablet 40 mg 40 mg, Oral, Daily6, First dose on 10/21/25 at 0600, Do Not Crush 0628 (Given - Provider: Anne Vail RN) 0544 (Given - Provider: Anne Vail RN) pantoprazole (PROTONIX) injection 40 mg (CANCELED) 40 mg, Intravenous, Daily6, First dose (after last modification) on Maris 10/18/25 at 1130, Dilute each 40 mg vial with 10 mL of Normal Saline 0534 (Given - Provider: Anne Vail RN) 0630 (Not Given - Provider: Anne Vail RN - Reason: Other - Comment: given in tablet form) 0544 (Not Given - Provider: Anne Vail RN - Reason: Other - Comment: given orally) potassium chloride (KLOR-CON M20) CR tablet 40 mEq (COMPLETED) 40 mEq, Oral, Once, On Wed10/21/25 at 0800, For 1 dose, FOR PATIENTS UNABLE TO SWALLOW LARGE TABLETS, but can take liquids orally: Place tablet(s) in room temperature or warm water (@ 2-4 ounces) and allow to disintegrate for ~ 30 seconds. Then stir well and administer immediately before particles settle. NOTE: not all particles will go into solution. DO NOT CRUSH or CHEW; TABLET(S) MAY BE SPLIT 0820 (Given - Provider: Stacy Zamorano RN) potassium chloride (KLOR-CON M20) CR tablet 40 mEq (COMPLETED)(Linked Group 2) 40 mEq, Oral, Once, On Wed10/22/25 at 0630, For 1 dose, FOR PATIENTS UNABLE TO SWALLOW LARGE TABLETS, but can take liquids orally: Place tablet(s) in room temperature or warm water (@ 2-4 ounces) and allow to disintegrate for ~ 30 seconds. Then stir well and administer immediately before particles settle. NOTE: not all particles will go into solution. DO NOT CRUSH or CHEW; TABLET(S) MAY BE SPLIT 0842 (Given - Provider: Charbel Ji RN) potassium chloride (KLOR-CON M20) CR tablet 40 mEq (COMPLETED)(Linked Group 2) 40 mEq, Oral, Once, On Wed10/22/25 at 1030, For 1 dose, FOR PATIENTS UNABLE TO SWALLOW LARGE TABLETS, but can take liquids orally: Place tablet(s) in room temperature or warm water (@ 2-4 ounces) and allow to disintegrate for ~ 30 seconds. Then stir well and administer immediately before particles settle. NOTE: not all particles will go into solution. DO NOT CRUSH or CHEW; TABLET(S) MAY BE SPLIT 1108 (Given - Provider: Charbel Ji RN) predniSONE (DELTASONE) tablet 20 mg(Linked Group 1) 20 mg, Oral, Daily, First dose on Maris 10/25/25 at 0900, Start daily PO dose on POD #8 predniSONE (DELTASONE) tablet 25 mg(Linked Group 1) 25 mg, Oral, Once, On Wed10/24/25 at 0900, For 1 dose, POD #7 predniSONE (DELTASONE) tablet 30 mg(Linked Group 1) 30 mg, Oral, Once, On Wed10/23/25 at 0900, For 1 dose, POD #6 predniSONE (DELTASONE) tablet 40 mg (COMPLETED)(Linked Group 1) 40 mg, Oral, Once, On Wed10/22/25 at 0900, For 1 dose, POD #5 0843 (Given - Provider: Charbel Ji RN) sod phos di, mono-K phos mono (K-PHOS NEUTRAL) 250 mg tablet Tab 250 mg (COMPLETED) 250 mg, Oral, Every 2 hours, First dose on Wed10/21/25 at 0830, For 3 doses, Phosphorus level 1.8 - 2.9: Weight Less than 70 k tablet every 2 hours x 3 doses ( 3 tablets = 24 mmol Phosphorus, 3.3 mEq Potassium). May give orally or per feeding tube. Each 250 mg tablet of KPhos Neutral contains: Phosphorus = 8 mmol; Sodium = 13 mEq; Potassium = 1.1 mEq 0820 (Given - Provider: Stacy Zamorano RN)1116 (Given - Provider: Stacy Zamornao RN)1231 (Given - Provider: Stacy Zamorano RN) sod phos di, mono-K phos mono (K-PHOS NEUTRAL) 250 mg tablet Tab 500 mg (COMPLETED) 500 mg, Oral, Every 4 hours, First dose on Wed10/22/25 at 0700, For 2 doses, Phosphorus Level 1.8 - 2.9: Weight 70 - 100 k tablets every 4 hours x 2 doses. Total 4 tablets (Phosphorus 32 mmol, Potassium 4.4 mEq). May give orally or per feeding tube. Each 250 mg tablet of KPhos Neutral contains: Phosphorus = 8 mmol; Sodium = 13 mEq; Potassium = 1.1 mEq 0842 (Given - Provider: Charbel Ji RN)1210 (Given - Provider: Charbel Ji RN) sulfamethoxazole-trimetho prim (BACTRIM) 400-80 mg per tablet 1 tablet 1 tablet, Oral, Daily, First dose on Wed10/20/25 at 2100 2022 (Given - Provider: Anne Vail RN) 0820 (Given - Provider: Stacy Zamorano, RN) 0842 (Given - Provider: Charbel Ji, SILVIO) tacrolimus (PROGRAF) capsule 2 mg (COMPLETED) 2 mg, Oral, Once, On Wed10/20/25 at 2100, For 1 dose, LEVEL 2 HAZARDOUS MEDICATION 2014 (Given - Provider: Anne Vail RN) tacrolimus (PROGRAF) capsule 3 mg (CANCELED) 3 mg, Oral, 2 times daily, First dose (after last modification) on Wed10/19/25 at 2100, LEVEL 2 HAZARDOUS MEDICATION 0933 (Given - Provider: Stacy Zamorano RN) tacrolimus (PROGRAF) capsule 3 mg 3 mg, Oral, 2 times daily, First dose (after last modification) on Wed10/21/25 at 0900, LEVEL 2 HAZARDOUS MEDICATION 0820 (Given - Provider: Stacy Zamorano, SILVIO)2001 (Given - Provider: Anne Vail RN) 0948 (Given - Provider: Charbel Ji, RN) PRN Medication Order 10/20/2025 10/21/2025 10/22/2025 dextrose 10%-water (D10W) IV soln(Linked Group 3) 12.5 g, Intravenous, Every 15 min PRN, Low blood sugar, for glucose < 70 and alert but can not be corrected, orally or via feeding tube, Starting on Wed10/19/25 at 1127, Recheck blood sugar in 15 minutes and repeat treatment if glucose still < 70. For Smart Pump: Set volume to be infused; 125 ml for 12.5 grams or 250 mL for 25 grams. dextrose 10%-water (D10W) IV soln(Linked Group 3) 25 g, Intravenous, Every 15 min PRN, Low blood sugar, for glucose < 70 and not alert, Starting on Wed10/19/25 at 1127, Recheck glucose in 15 minutes and repeat treatment if glucose still < 70. For Smart Pump: Set volume to be infused; 125 ml for 12.5 grams or 250 mL for 25 grams. oxyCODONE (ROXICODONE) immediate release tablet 2.5 mg(Linked Group 4) 2.5 mg, Oral, Every 4 hours PRN, moderate pain (NRS 4-6) or if patient is non-communicative (CPOT 3-5), Starting on 10/20/25 at 0715, If on IV and PO pain medications, use IV if patient cannot tolerate oral. oxyCODONE (ROXICODONE) immediate release tablet 5 mg(Linked Group 4) 5 mg, Oral, Every 4 hours PRN, severe pain (NRS 7-10) or if patient is non-communicative (CPOT 6-8), Starting on 10/20/25 at 0715, If on IV and PO pain medications, use IV if patient cannot tolerate oral. Linked Groups Order Group 1: methylPREDNISolone sodium succinate (SOLU-medrol) 250 mg in sodium chloride 0.9 % 100 mL IVPB (COMPLETED) 250 mg, Intravenous, at 200 mL/hr, Once, On Maris 10/18/25 at 0900, For 1 dose, POD #1 - Dose, Administer over 30 Minutes, Post-op Followed by methylPREDNISolone sod suc(PF) (SOLU-medrol) SolR 125 mg (COMPLETED) 125 mg, Intravenous, Once, On Wed10/19/25 at 0900, For 1 dose, POD #2 - Dose. Mix until dissolved and use immediately. MIX THOROUGHLY PRIOR TO ADMINISTRATION., Post-op Followed by methylPREDNISolone sod suc(PF) (SOLU-medrol) SolR 60 mg (COMPLETED)Jump to med 60 mg, Intravenous, Once, On 10/20/25 at 0900, For 1 dose, POD # 3 - Dose. Mix until dissolved and use immediately. MIX THOROUGHLY PRIOR TO ADMINISTRATION., Post-op Followed by methylPREDNISolone sod suc(PF) (SOLU-medrol) SolR 50 mg (COMPLETED)Jump to med 50 mg, Intravenous, Once, On Wed10/21/25 at 0900, For 1 dose, POD #4 - Dose. Mix until dissolved and use immediately. MIX THOROUGHLY PRIOR TO ADMINISTRATION. Followed by predniSONE (DELTASONE) tablet 40 mg (COMPLETED)Jump to med 40 mg, Oral, Once, On Wed10/22/25 at 0900, For 1 dose, POD #5 Followed by predniSONE (DELTASONE) tablet 30 mgJump to med 30 mg, Oral, Once, On Tu10/23/25 at 0900, For 1 dose, POD #6 Followed by predniSONE (DELTASONE) tablet 25 mgJump to med 25 mg, Oral, Once, On Wed10/24/25 at 0900, For 1 dose, POD #7 Followed by predniSONE (DELTASONE) tablet 20 mgJump to med 20 mg, Oral, Daily, First dose on Maris 10/25/25 at 0900, Start daily PO dose on POD #8 Group 2: potassium chloride (KLOR-CON M20) CR tablet 40 mEq (COMPLETED)Jump to med 40 mEq, Oral, Once, On Wed10/22/25 at 0630, For 1 dose, FOR PATIENTS UNABLE TO SWALLOW LARGE TABLETS, but can take liquids orally: Place tablet(s) in room temperature or warm water (@ 2-4 ounces) and allow to disintegrate for ~ 30 seconds. Then stir well and administer immediately before particles settle. NOTE: not all particles will go into solution. DO NOT CRUSH or CHEW; TABLET(S) MAY BE SPLIT Followed by potassium chloride (KLOR-CON M20) CR tablet 40 mEq (COMPLETED)Jump to med 40 mEq, Oral, Once, On Wed10/22/25 at 1030, For 1 dose, FOR PATIENTS UNABLE TO SWALLOW LARGE TABLETS, but can take liquids orally: Place tablet(s) in room temperature or warm water (@ 2-4 ounces) and allow to disintegrate for ~ 30 seconds. Then stir well and administer immediately before particles settle. NOTE: not all particles will go into solution. DO NOT CRUSH or CHEW; TABLET(S) MAY BE SPLIT Group 3: dextrose 10%-water (D10W) IV solnJump to med 12.5 g, Intravenous, Every 15 min PRN, Low blood sugar, for glucose < 70 and alert but can not be corrected, orally or via feeding tube, Starting on Wed10/19/25 at 1127, Recheck blood sugar in 15 minutes and repeat treatment if glucose still < 70. For Smart Pump: Set volume to be infused; 125 ml for 12.5 grams or 250 mL for 25 grams. Or dextrose 10%-water (D10W) IV solnJump to med 25 g, Intravenous, Every 15 min PRN, Low blood sugar, for glucose < 70 and not alert, Starting on Wed10/19/25 at 1127, Recheck glucose in 15 minutes and repeat treatment if glucose still < 70. For Smart Pump: Set volume to be infused; 125 ml for 12.5 grams or 250 mL for 25 grams. Group 4: oxyCODONE (ROXICODONE) immediate release tablet 2.5 mgJump to med 2.5 mg, Oral, Every 4 hours PRN, moderate pain (NRS 4-6) or if patient is non-communicative (CPOT 3-5), Starting on 10/20/25 at 0715, If on IV and PO pain medications, use IV if patient cannot tolerate oral. Or oxyCODONE (ROXICODONE) immediate release tablet 5 mgJump to med 5 mg, Oral, Every 4 hours PRN, severe pain (NRS 7-10) or if patient is non-communicative (CPOT 6-8), Starting on 10/20/25 at 0715, If on IV and PO pain medications, use IV if patient cannot tolerate oral. 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
--- OUTSIDE RECORDS SUMMARY | 2025-10-17 12:00 | XMS_ITS | Encounter Summary ---
Author Organization [facility] Address [address] [place] [address] Care Team Providers Care Syrup Mixer Name Role Phone System, Provider Not In [...] release of HIV test results or diagnoses. [id number] Health Reason for Visit * Auth/Cert (Routine) Specialty Diagnoses / Procedures Referred By Contru t Referred To Contact Diagnoses TRANSPLANT LIVER Procedures TRANSPLANT LIVER [facility] [address] [place] [address] Phone: tel: Referral ID Status Reason Start Date Expiration Date Visits Re quested Visits Authorized [id number] 1 1 Encounter Details Date Type Department Care Team (Late st Contact Info) Description 10/17/2025 12:00 PM EST - 10/17/2025 8:12 PM EST Surgery [facility] [address] [place] [address] Vani Winkler MD [facility] [place] [id number] TRANSPLANT LIVER Surgery Details Date/Time Status Location OR Service Patient Class Case Class Case Type Trauma Case? 10/17/2025 12:00 PM Posted OR 17 Transplant Surgery Admit Non Trauma Panel 1 Procedure LRB Anes Op Region Wound Class Comments TRANSPLANT LIVER N/A General Abdomen Clean Surgeon Surgeon Role Service Panel Popeye Russell MD Assisting Transplant 1 Vani Winkler MD Primary Transplant 1 Elida Wyatt MD Assisting Transplant 1 documented in this encounter Social History Tobacco [...] living in a assisted (including now)? No 10/17/2025 Utilities Answer Date [...] Sign Reading Time Taken Comments Blood Pressure 120/71 10/17/2025 9:39 AM EST Pulse 61 10/17/2025 9:39 AM EST Temperature 36.2 C (97.1 F) 10/17/2025 9:39 AM EST Respiratory Rate 16 10/17/2025 9:39 AM EST Oxygen Saturation 100% 10/17/2025 9:39 AM EST Inhaled Oxygen Concentration 100% 10/17/2025 9 :39 AM EST Weight 99.8 kg (220 lb) 10/17/2025 9:39 AM EST Height 167.6 cm (5' 6 ) 10/17/2025 9:39 AM EST Body Mass Index 35.51 10/17/2025 9:39 AM EST documented in this encounter Functional Status * Peripheral Vascular Question Answer Date of Assessment Author Peripheral Vascular (JANAL) X 10/17/2025 9:39 AM EST Yvette Durham RN documented as of this encounter Discharge Summaries * February SIVLIO Zimmerman - 10/22/2025 12:26 PM EST [facility] Management Discharge Summary Patient name: David Serrano Patient : 1960 Age: 65 y.o. Gender: male Patient emergency contact: Extended Emergency Contact Information Primary Emergency Contact: Stacy Serrano Address: [address] [place] [address] Mobile Relation: Spouse Attending provider: Vani Winkler MD Primary care physician: PROVIDER NOT IN SYSTEM The MD has indicated that the patient is ready for discharge. David Serrano was referred and accepted at [facility] ([phone]) for PT/OT and SN (lab draws) . [...] Services at Home post discharge: Home Health Assisted Health Care Name/Phone # post discharge: [facility] [employer] ([phone]) Home Health Services Types at Discharge: PT/OT/WOOD BOATBUILDER APPRENTICE, Fpc (longterm for lab draws.) Citlaly Zimmerman RN/SAJAN [phone] documented in this encounter Discharge Instructions * [...] kept under 2 gm/day. Please discuss withyour budget coordinator if you have any question about appropriate dose to take. Other Instructions: Call post-liver transplant clinic with questions [phone] or call [facility] at [phone] and ask for the liver recruiter coordinator director of consulting services if you experience any of the following: [...] Date and time as instructed by your recruiter coordinator in liver transplant clinic in [facility], 3rd floor or Video Visit. PLEASE GET [...] EST 10/18/2025 blood sugar diagnostic (GLUCOSE BLOOD) Str Use to test blood sugar four times a day. 100 strip 11 10/22/2025 3:31 PM EST 10/18/2025 blood-glucose meter Mis Use to test blood sugar four times a day. 1 each 10/22/2025 3:31 PM EST 10/18/2025 calcium-vitamin D 500 mg-5 mcg (200 unit) per tablet Take 1 tablet by mouth 2 times a day with meals. 60 tablet 2 10/22/2025 3:31 PM EST 10/18/2025 lancets Mis Use to test blood sugar [...] Immunosuppression schedule as per Education Note by recruiter coordinator earlier this admission. Reviewed discharge medications [...] in clinic? (If significant deficits, communicate with recruiter coordinator): Standard continual education Future medications to [...] Cori Womack PharmD Solid Organ Transplant Clinical Automat Watcher Contact via iVengo * Cori Womack PharmD - 10/22/2025 4:06 [...] Cori Womack PharmD Solid Organ Transplant Clinical Automat Watcher Contact via iVengo * Jen Mckeon, PT - 10/22/2025 12:10 PM EST Physical Therapy Treatment Name: David Serrano : 1960 Attending Physician: Vani Winkler MD Admission Diagnosis: TRANSPLANT LIVER Date: 10/22/2025 [facility] [address] Reviewed Pertinent hospital course: Yes Hospital Course [...] Long-term goal to be met by: 11/02/25 Human Resources Executive Assistant Goal : =STG Patient/Family Education Educated patient [...] Surgeon: Vani Winkler MD; Location: [facility]; Service: Transplant; Laterality: N/A; [1] Patient Active Problem List Diagnosis Alcoholic cirrhosis (CMS-HCC) Ascites Hepatic encephalopathy (CMS-HCC) Esophageal varices (CMS-HCC) Pre-transplant evaluation for chronic liver disease Encounter for pre-transplant evaluation for liver transplant * Cori Womack, PharmD - 10/19/2025 3:13 [...] the Caprini Risk Score of 10 and [facility] transplant protocol, I recommend discharging on heparin 5,000 units subcutaneously q8h (facility) or Eliquis 2.5 mg PO BID (home) for 30 days total. Endof chemoprophylaxis: 11/17/25. Cori Womack PharmD Solid Organ Transplant Clinical Automat Watcher Contact via [employer] Secure Chat * Lary Ding, OT - 10/19/2025 11:03 AM EST Occupational Therapy Initial Assessment Name: David Serrano : 1960 Attending Physician: Vani Winkler MD Admission Diagnosis: TRANSPLANT LIVER Date: 10/19/2025 Room: [place] [address]/[place] [address] Reviewed Pertinent hospital course: Yes Hospital Course [...] will complete lower body dressing: Moderate assistance Human Resources Executive Assistant Goal : Pt will tolerate a bathing assessment prison goal to be met in: 2 weeks [...] Surgeon: Vani Winkler MD; Location: [facility]; Service: Transplant; Laterality: N/A; [1] Patient [...] Admission Diagnosis: TRANSPLANT LIVER Date: 10/19/2025 Room: [place] [address] [address] Reviewed Pertinent hospital course: Yes Hospital Course [...] Long-term goal to be met by: 11/02/25 Nursing Home Goal : =STG Patient/Family Education Educated patient [...] Surgeon: Vani Winkler MD; Location: [facility]; Service: Transplant; Laterality: N/A; [1] Patient Active Problem List Diagnosis Alcoholic cirrhosis (CMS-HCC) Ascites Hepatic encephalopathy (CMS-HCC) Esophageal varices (CMS-HCC) Pre-transplant evaluation for chronic liver disease Encounter for pre-transplant evaluation for liver transplant * Leticia Lomeli MD - 10/18/2025 12:58 PM EST Transplant Surgery Progress Note Name: David Serrano CSN: [id number] Date: 10/18/2025 12:58 PM OR Date: 10/17/2025 [...] 0659 10/18/25 07 - 10/19/25 0659 Shift 2446-2676 6276-3638 4799-1234 24 Hour Total 0564-8969 4989-1621 7058-2092 24 Hour Total INTAKE I.V.(mL/kg) 8000(80.2) 394.1(3.9) [...] 30 60 30 30 IV Piggyback 120 515 300 8038 62.6 62.6 Volume (mL) (methylPREDNISolone sodium succinate (SOLU-medrol) 500 mg in sodium chloride 0.9 % 100 mL IVPB) 100 100 Volume (mL) (AMPicillin 2 g in sodium chloride 0.9% 100 mL IVPB (Wvus1Ces)) 100 200 300 Volume (mL) (albumin human bottle 5%) 500 500 Volume (mL) (albumin human bottle 25%) 50 50 Volume (mL) (AMPicillin 1 g in sodium chloride 0.9% 100 mL IVPB (Gzqr1Fcv)) 97.4 97.4 Volume (mL) (mycophenolate (CELLCEPT) 500 [...] IV Push) 20 20 Shift Total(mL/kg) 120(1.2) 19489(138.6) 1105.1(11.1) 00846.1(150.9) 143.4(1.4) 143.4(1.4) OUTPUT Urine(mL/kg/hr) 1850(2.3) 1000(1.3) 2850(1.2) [...] 2 Abdomen Inferior;Lateral;Left) 100 300 400 Blood 03535 02522 Est Blood Loss 69358 07027 Shift Total(mL/kg) 59568(130.5) 1550(15.5) 70218(146.1) 355(3.6) 355(3.6) Weight (kg) 99.8 99.8 99.8 [...] EXAM: US ABDOMEN LIMITED EXAM: US DUPLEX [id number] COMPLETE INDICATION: Post-op liver transplant Day 1 [...] at 10/18/2025 9:53 AM EST US Duplex Iyt-Bpl-Vjbmdke Comp Result Date: 10/18/2025 EXAM: US ABDOMEN LIMITED EXAM: US DUPLEX [id number] COMPLETE INDICATION: Post-op liver transplant Day 1 [...] below level of diaphragms and outside the zafrp-aj-kwlc. Right internal jugular approach pulmonary artery catheter [...] Dispo: JAJAU LETICIA LOMELI MD Transplant Surgery [facility] Surgery Resident Cosigned by Vani Winkler MD [...] Winkler MD PhD Transplant Surgery * Teresa العلي, BK - 10/18/2025 9:34 AM EST Pt extubated [...] Cori Womack PharmD Solid Organ Transplant Clinical Automat Watcher Contact via [employer] Secure Chat * Karen Washington, BK - 10/18/2025 5:32 AM EST SBT started at 0435 completed at 0520 Patient on +5 and 40% RR: 7-12 Vt: 679-940 RSBI: 10-12 AB.34/48/84/25 Patient placed on Delta 5 post SBT documented in this encounter H&P Notes * Aspen Parr MD - 10/17/2025 10:27 AM EST Transplant Surgery History and Physical Patient: David Serrano CSN: [id number] History CC: ESLD HPI: David Serrano is [...] Low Risk (06/15/2025) Received from [facility] Overall Financial Resource Strain (CARDIA) How hard is it for you to pay for the very basics like food, housing, medical care, and heating?: Not hard at all Food Insecurity: No Food Insecurity (06/15/2025) Received from [facility] Hunger Vital Sign Within the past 12 months, you worried that your food would run out before you got the money to buymore.: Never true Within the past 12 months, the food you bought just didn't last and you didn't have money to get more.: Never true Transportation Needs: No Transportation Needs (06/15/2025) Received from [facility] PRAPARE - Transportation In the past 12 months, has lack of transportation kept you from medical appointments or from getting medications?: No In the past 12 months, has lack of transportation kept you from meetings, work, or from getting things needed for daily living?: No Physical Activity: Inactive (06/15/2025) Received from [facility] Exercise Vital Sign On average, how many days per week do you engage in moderate to strenuous exercise (like a brisk walk)?: 0 days On average, how many minutes do you engage in exercise at this level?: 0 min Stress: No Stress Concern Present (06/15/2025) Received from [facility] Citizen Of [place] of Occupational Health - Occupational Stress Questionnaire Do you feel stress - tense, restless, nervous, or anxious, or unable to sleep at night because yourmind is troubled all the time - these days?: Only a little Social Connections: Socially Integrated (06/15/2025) Received from [facility] Social Connection and Isolation Panel In a typical week, how many times do you talk on the phone with family, friends, or neighbors?: More than three times a week How often do you get together with friends or relatives?: More than three times a week How often do you attend holiness or baptist services?: More than 4 times per year Do you belong to any clubs or organizations such as holiness groups, unions, fraternal [...] Low Risk (06/15/2025) Received from [facility] Housing Stability Vital Sign In the last 12 months, was there a time when you were not able to pay the mortgage or rent on time?: No In the past 12 months, how many times have you moved where you were living?: 0 At any time in the past 12 months, were you homeless or living in a assisted (including now)?: No FH: No family history [...] admitted to SICU post-op. ASPEN PARR MD Critical access hospital Surgery Liver Transplant Pager: [phone] 10:28 AM 10/17/2025 Cosigned by Vani [...] Name: David Serrano Date: 1960 Billing #: [id number] Date of Procedure: 10/17/2025 Diagnosis: Chronic Hepatic [...] branch patch. Ligation of left renal vein. Fsxw-hj-ijmb anastomosis performed without stent. Portal Flow Modulation [...] donor was ABO O and UNOS ID [id number], [place] [id number]. This was a 56 yearold brain donor [...] of available help, Dr. Nugent served as phys assistant surgeon. Procedure: Back bench preparation of [...] After completion of the outflow anastomosis, a Turkmen clamp was placed across the donor suprahepatic [...] no further bleeding, we then performed a wsrs-th-wipa anastomosis. There was no stent placed. This [...] Name: David Serrano Date: 1960 Billing #: [id number] Date of Procedure: 10/17/2025 Diagnosis: Chronic Hepatic Failure without coma Procedure: 1. Back Bench Preparation Donor Liver Attending surgeons: Felice Nugent III, MD Social Work Faculty Member Surgeon(s): Morena Haley MD Indications for Procedure: This is a 65 y.o.-year-old male who has alcohol and A1AT liver disease and chronic liver failure complicated by ascites and HE with a MELD score of 20. A donor organ became available. This donor was ABO O and UNOS ID [id number], [place] [id number]. This was a 56 yearold brain donor [...] MD Giulia Bencini, MD Anesthesia: General Staff: Pharmaceutical Sales Representative: Mita Hernandez RN; Aspen Coleman RN Relief Pharmaceutical Sales Representative: Claritza Mckinnon RN; Jonatan De La O RN; Clair Sanders RN Scrub Person: Samson Mcbride RN Fellow: Chelsie Haley MD Float: Nadia Woodruff RN; Jyotsna Singleton RN; Farzana Hamilton; Lizz Cota RN Resident: Aspen Parr MD Estimated Blood Loss: 11 L Specimens: Shawnee liver and gallbladder Left liver core needle biopsy Right liver core needle biopsy Peritoneal fluid for culture Drains: Drain 1 Abdomen Inferior;Lateral;Right (Active) Number of days: 0 Drain 2 Abdomen Inferior;Lateral;Left (Active) Number of days: 0 IUC (Iniguez) 16 Fr. (Active) Number of days: 0 Transplant-Specific Information UNOS ID: [id number] Cross-clamp: 10/17/25 1250 Out of ice: 10/17/25 [...] 1:42 PM ESTAssociated Order(s): IP CONSULT TO CONTACT CENTER REPRESENTATIVE [facility] Transplant Discharge Education Note Assessment: Received [...] 4 - Demonstrates understanding/competency Naomy Gomes RN, MSN,[facility] Diabetes Education Office [phone] Schedule: M-F 8:00am-4:30pm * Oskar Arango, FLEX - 10/22/2025 9:08 AM EST TXP - Follow-up [facility] Medical Nutrition Therapy Reason(s) for Completion: [...] Gelatein Plus- clear thickened, gelatin high protein ([facility] and [facility] only) PO Meal Intake: Pt currently not taking any PO Appetite: [place] Estimated Nutrition Needs This Admission: No Feeding: Able to feed self Estimated Nutrition Needs (needs based on DBW of 70.4 kg) Kcals/day: 5291-4259 (25-30 kcal/kg) Protein g/day: 105-140 (1.5-2.0 g/kg) [...] Surgeon: Vani Winkler MD; Location: [facility]; Service: Transplant; Laterality: N/A; Scheduled Meds: [...] Dietitian - Solid Organ Transplant Contact via Epic Chat [1] Allergies Allergen Reactions Lisinopril Other (See Comments) * Citlaly SILVIO Zimmerman - 10/19/2025 1:50 PM EST [facility] Care Management/Social Work Assessment Patient Information Patient Name: David Serrano Hospital Day: 2 Inpatient/Observation: Inpatient Admit Date: 10/17/2025 Admission Diagnosis: TRANSPLANT LIVER Attending provider: Vani Winkler MD PCP: PROVIDER NOT IN SYSTEM Home Pharmacy: [facility] - [place], [place] - [address] [place] [address] [facility] [address] [facility] [address] [facility] [address] [facility] [address] [facility] [address] [facility] [address] Pertinent Medications Anticoagulation therapy: Yes Anticoagulant (Name [...] children and their names: 1- Lan Serrano ([phone]) and Gloria Banegas ([phone]) Relative Search Completed: Yes Demographics Correct:: Yes [...] Information Primary Emergency Contact: Stacy Serrano Address: [address] [place] [address] Mobile Relation: Spouse Support Systems Legal Status: HCPOA Name of Guardian/POA/ Payee and Phone Number: Stacy Serrano ([phone]) Primary Caregiver: Self, Spouse Caregiver name/phone number: Stacy Serrano ([phone]) Times of available support: Total 24/7 hands on (add comment) (Daughter and Friend willing to assist in pt post op care.) Marital Status: Number of children and their names: 1- Lan Serrano ([phone]) and Gloria Banegas ([phone]) Relative Search Completed: Yes Demographics Correct:: Yes [...] living with spouse in a home in [place], [place]. Pt reports ~2 steps into residence and 0 inside residence. Pt reports having 2 children- Lan Serrano ([phone]) and Gloria Banegas ([phone]). Pt denies any concerns for safety or [...] Stacy Kiesha. LNOK and HCPOA: Stacy Roach ([phone]) PCP: Myles Mosley Transportation: family Advance Directives (For Healthcare) Advance Directive: Patient has advance directive, copy in chart Type of Healthcare Directive: Durable power of employee benefits attorney for health care Healthcare Agent Appointed: Yes Healthcare Agent's Name: Stacy Kiesha Healthcare Agent's Pre-existing DNR/DNI Order: No Patient [...] 550 mg BID 24 hour events: - Grayling removed, introducer remains - Extubated to [place], now room air - NG pulled on [...] Surgeon: Vani Winkler MD; Location: [facility]; Service: Transplant; Laterality: N/A; Home Medications [...] breakfast. pen needle, diabetic 32 gauge x /32 [...] ratio: No PaO2 result within 12 hours. Aydlett body weight: Aydlett body weight: 63.8 kg (140 lb 10.5 [...] (mL) 10/17/25 0701 - 10/17/25 1900 10/17/25 190 - 10/18/25 0700 10/18/25 0701 - 10/18/25 [...] K replaced RENAL Labs: Recent Labs 10/17/25 22510/18/25 05010/18/25 11210/18/25 17410/18/25 2220 NA 145 146 [...] issues. HEMATOLOGIC Labs: Lab 10/18/25 2220 10/18/25 17410/18/25 11210/18/25 0502 10/17/25 2250 HEMATOCRIT 26.9* 28.3* 29.0* [...] in sodium chloride 0.9% 100 mL IVPB (Cffe4Gni) 1 g Every 6 hours 10/17/2025 10/19/2025 Admin Instructions: Dosage may need to be adjusted for renal dysfunction. Full dose is 1g IV q6h Use Pyyk0Axc Adapter - Mix Thoroughly Before Administration Notes to Pharmacy: On service order taker estimated creatinine clearance is 101.9 mL/min (based [...] iniguez PT/OT: pending. PT Recs: OT Recs: WOOD BOATBUILDER APPRENTICE Recs: Dispo: Remain in SICU EVELYN GALINDO [...] Pre-op MELD 20. Intra-operative course notable for mqaxtntyet0H ascites. EBL 11L, received 03/19//, 2.4L cell-saver, [...] SATURATION ARTERIAL 97 100 PF ratio: 210 Aydlett body weight: Aydlett body weight: 63.8 kg (140 lb 10.5 [...] 10/18/2025 0700 Gross per 24 hour Intake 23983.44 ml Output 37655 ml Net 472.44 ml IVF: acetylcysteine (ACETADOTE) 200 mg/mL (20 %) 10 g in sodium chloride 0.45% (1/2 NS) 1,000 mL infusion, Last Rate: 10 g (10/18/25 0516) fentanyl (SUBLIMAZE) IV infusion, Last Rate: 75 mcg/hr (10/17/252257) insulin regular in 0.9 % sodium chloride, Last Rate: 9 Units/hr (10/18/25 0701) norepinephrine, Last Rate: Stopped (10/18/25 0530) propofol, Last Rate: 7.5 mcg/kg/min (10/18/25 07) vasopressin, Last Rate: 0.03 Units/min (10/18/25 07) A/P: Fluids: Start normosol at 75/hr #Electrolyte [...] active issues. HEMATOLOGIC Labs: Lab 10/18/25 0502 10/17/25224910/17/25212410/17/25202110/17/25 19210/17/25 1839 10/17/25 1700 10/17/25 1656 10/17/25 1559 [...] -- -- -- Lab 10/17/25 2250 10/17/25 2031 10/17/25 1839 [...] in sodium chloride 0.9% 100 mL IVPB (Uhku3Szz) 1 g Every 6 hours 10/17/2025 10/19/2025 Admin Instructions: Dosage may need to be adjusted for renal dysfunction. Full dose is 1g IV q6h Use Qgts7Fms Adapter - Mix Thoroughly Before Administration Notes to Pharmacy: On service order taker estimated creatinine clearance is 101.9 mL/min (based on SCr of 0.81 mg/dL). Route: Intravenous Linked Group 1: Placed in And Linked Group AMPicillin 2 g in sodium chloride 0.9% 100 mL IVPB (Wahq4Qfj) (Completed) 2 g Once 10/17/2025 10/17/2025 Admin Instructions: Begin infusion 20-60 minutes prior to incision Use Nivr0Prk Adapter - Mix Thoroughly Before Administration Notes to Pharmacy: On service order taker estimated creatinine clearance is 98.3 mL/min (based [...] Best Verbal Response: 1,Best Motor Response: 6 Negley Coma Scale Score: 10 No data found. [...] 1 PT/OT: pending. PT Recs: OT Recs: WOOD BOATBUILDER APPRENTICE Recs: Dispo: Remain in SICU. DUARTE EL [...] Pre-op MELD 20. Intra-operative course notable for qtvnzwcpyt7G ascites. EBL 11L, received ///, 2.4L cell-saver, [...] 10/18/2025 0758 Gross per 24 hour Intake 22004.34 ml Output 27024 ml Net 484.34 ml SKIN/MUSCULOSKELETAL: No acute [...] CONSULT TO NUTRITION SERVICES TXP - Initial [facility] Medical Nutrition Therapy Reason(s) for Completion: [...] based on DBW of 70.4 kg) Kcals/day: 8396-5038 (25-30 kcal/kg) Protein g/day: 105-140 (1.5-2.0 g/kg) [...] Dietitian - Solid Organ Transplant Contact via [employer] Chat [1] Allergies Allergen Reactions Lisinopril Other [...] O2 SATURATION ARTERIAL 100 PF ratio: 270 Aydlett body weight: Aydlett body weight: 63.8 kg (140 lb 10.5 [...] CVP (mmHg) PAP 10/17/25 2315 4 mmHg /10/17/25 2300 7 mmHg 10/17/25 2240 5 mmHg [...] 10/17/2025 2300 Gross per 24 hour Intake 54503.34 ml Output 34166 ml Net 840.34 ml IVF: fentanyl (SUBLIMAZE) [...] 2.3* 2.3* 1.8* Lab 10/17/25 2250 10/17/25 2031 10/17/25 1839 [...] in sodium chloride 0.9% 100 mL IVPB (Udqv6Vlc) 1 g Every 6 hours 10/17/2025 10/19/2025 Admin Instructions: Dosage may need to be adjusted for renal dysfunction. Full dose is 1g IV q6h Use Ovmj8Rup Adapter - Mix Thoroughly Before Administration Notes to Pharmacy: On service order taker estimated creatinine clearance is 101.9 mL/min (based on SCr of 0.81 mg/dL). Route: Intravenous Linked Group 1: Placed in And Linked Group AMPicillin 2 g in sodium chloride 0.9% 100 mL IVPB (Strj5Zxl) (Completed) 2 g Once 10/17/2025 10/17/2025 Admin Instructions: Begin infusion 20-60 minutes prior to incision Use Gkua6Bic Adapter - Mix Thoroughly Before Administration Notes to Pharmacy: On service order taker estimated creatinine clearance is 98.3 mL/min (based [...] Best Verbal Response: 5,Best Motor Response: 6 Negley Coma Scale Score: 15 No data found. [...] 1 PT/OT: pending. PT Recs: OT Recs: WOOD BOATBUILDER APPRENTICE Recs: Dispo: Remain in SICU. DUARTE EL [...] Antecubital -- -- Antecubital -- Arterial Line 12/03/25 Right Radial 10/17/25 1415 Radial less than [...] Patient will remain free of falls Goal: [place] Fall Precautions Outcome: Adequate for Discharge Problem: [...] intervention. Outcome: Adequate for Discharge Problem: Non-violent, ami-hzqk-oerfqisaild restraints Description: Less restrictive alternative interventions will [...] of medical procedures, or protection of medical education manager access. Outcome: Adequate for Discharge Problem: [...] 1960 Age: 65 y.o. Gender: male SSN: [id number] Address: [address] [place], [place] [address] Phone number: [phone] Patient emergency contact: Extended Emergency Contact Information Primary Emergency Contact: Stacy Serrano Address: [address] [place] [address] [place] Relation: Spouse Date of admission: 10/17/2025 Date of discharge: 10/22/2025 Attending provider: Lane Troy MD Primary care physician: PROVIDER NOT IN SYSTEM Code status: Full Code Allergies: Allergies[1] Insurance Information Insurance Information [employer] Phone: -- Subscriber: Kiesha David Subscriber#: [id number] Group#: [id number] Precert#: -- Authorization#: [id number] Effective Date: -- TRANSPLANT GLOBAL/TRANSPLANT GLOBAL Phone: -- Subscriber: Kiesha David Subscriber#: [id number] Group#: -- Precert#: -- Authorization#: [id number] Effective Date: -- Diagnoses Present on Admission [...] Gelatein Plus- clear thickened, gelatin high protein ([facility] and [facility] only) Regular Diet Services Required Fpc: vital [...] scale: Blood glucose 150-199 mg/dL =1units, Blood [id number] mg/dL =2 units, Blood glucose 250-299 mg/dL [...] Your Medications These medications were sent to [facility] [place] [phone] Hours: Wednesday - Wednesday: 8:00AM - 6:00PM [...] Fax results to liver transplant clinic at [phone]. NURSE VISIT: Please check vitals and assess/monitor [...] effort and are for medical reasons or baptist services or infrequently or short duration when for other reasons) due to deconditioning it would be a taxing effort to receive outpatient services. My signature below is to certify that this patient is under my care and that I, or nurse practitioner, or a physician phys assistant working with me, had a viij-co-gdrp encounter with this is patient on: 10/22/2025 Follow-up Appointments and Post Hospital Discharge Physician Name Future Appointments Date Time Provider Department Center 10/30/2025 9:00 AM LTRA SURGERY, [facility] [address] [facility] [address] [facility] [address] Discharging Physician Signature and Credentials Discharging Physician: Electronically signed by LAISHA HERNANDEZ 10/22/2025, 1:32 PM Physician to follow up Information PCP: PROVIDER NOT IN SYSTEM PCP address: None PCP phone number: None PCP fax number: None Follow-up: [facility] and their phone / fax is: [phone] / [phone] Clinical Services Manager and Credentials Provider/Company Name and Contact Number: [facility] at Discharge [facility] at Home post discharge: [facility] Name/Phone # post discharge: [facility] [employer] ([phone]) Home Health Services Types at Discharge: 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 Kamlesh Sanchez Graphics Intern Social Work Faculty Member Care Management Services [phone] * Plan of Care - Evelyn Galindo [...] Bush RN - 10/18/2025 3:55 PM EST [facility] Case Management/Social Work Department Progress Note Patient [...] PROVIDER NOT IN SYSTEM Home Pharmacy[facility] [place] [place] [facility] [address] [facility] [address] [facility] [address] [place] [address] [facility] [address] [facility] [address] [facility] [address] [facility] [address] [facility] [address] [facility] [id number] Medical Insurance Coverage: Payor: ANTHEM / Plan: [...] discharge planning needs. TAMIA BUSH RN Cell [phone] * Plan of Care - Angela Tamez [...] Patient will remain free of falls Goal: [place]mechen Fall Precautions Outcome: Progressing Problem: Daily Care [...] pain management intervention. Outcome: Progressing Problem: Non-violent, mnl-iufk-xtutxnfcrei restraints Description: Less restrictive alternative interventions will [...] of medical procedures, or protection of medical education manager access. Outcome: Progressing Problem: Knowledge Deficit [...] Patient will remain free of falls Goal: [place]hen Fall Precautions Outcome: Progressing Problem: Daily Care [...] pain management intervention. Outcome: Progressing Problem: Non-violent, zmk-ibun-dluidccgtot restraints Description: Less restrictive alternative interventions will [...] of medical procedures, or protection of medical education manager access. Outcome: Progressing Patient in bilateral [...] Priority Date/Time Associated Diagnosis Comments US DUPLEX IUY-[id number] COMPLETE STAT 10/22/2025 10:24 AM EST US [...] Routine 10/18/2025 10:29 AM EST US DUPLEX [id number] COMPLETE STAT 10/18/2025 9:35 AM EST US [...] in this encounter Results * US Duplex Cee-Sty-Wmvkqjn Comp (10/22/2025 10:24 AM EST) Anatomical Region [...] EXAM: US ABDOMEN COMPLETE EXAM: US DUPLEX [id number] COMPLETE INDICATION: Post-op liver transplant DATE: 10/22/2025 [...] EXAM: US ABDOMEN COMPLETE EXAM: US DUPLEX RAM-[id number] COMPLETE INDICATION: Post-op liver transplant DATE: 10/22/2025 [...] EXAM: US ABDOMEN COMPLETE EXAM: US DUPLEX [id number] COMPLETE INDICATION: Post-op liver transplant DATE: 10/22/2025 [...] EXAM: US ABDOMEN COMPLETE EXAM: US DUPLEX [id number] COMPLETE INDICATION: Post-op liver transplant DATE: 10/22/2025 [...] 10/22/2025 12:02 PM EST Leticia Lomeli MD IMG US ORDERABLES Final Resul t * POC Glucose Monitoring Device (10/22/2025 10:23 AM EST) POC Glucose Monitoring Device 96 70 - 100 mg/dL 10/22/2025 10:24 AM EST [facility] Blood 10/22/2025 10:2 3 AM EST 10/22/2025 10:23 AM EST Vani Winkler MD POINT OF CARE TEST ORDERABLE S Final Result Performing Organization Address [facility] de Phone Number [facility] [address] [facility]. [address] * Tacrolimus level (10/22/2025 9:48 AM EST) Tacrolimus (LC-MS) 4.0 3.0 - 15.0 ng/mL 10/22/2025 12:57 PM EST [facility] Comment:Performed via liquid chromatography tandem mass spectrometry. Detection limit: 1 ng/mL. Individual target concentrations may vary due to target organ and time after transplant. This test has been developed and its performance characteristics determined by [facility] which is certified under the Clinical [...] ORDERABLES Final Re sult Performing Organization Address [facility] de Phone Number [facility] [address] [facility]. [address] * Phosphorus (10/22/2025 5:28 AM EST) Phosphorus 2.3 2.1 - 4.7 mg/dL 10/22/2025 6:20 AM EST [facility] Plasma 10/22/2025 5:28 AM EST 10/22/2025 5:42 AM EST Aspen Parr MD LAB BLOOD ORDERABLES Final Resul t [facility] [address] * Magnesium (10/22/2025 5:28 AM EST) Magnesium 1.7 1.5 - 2.5 mg/dL 10/22/2025 6:20 AM EST [facility] Plasma 10/22/2025 5:28 AM EST 10/22/2025 5:42 AM EST Aspen Parr MD LAB BLOOD ORDERABLES Final Resul t [facility] [address] * (ABNORMAL) CBC (10/22/2025 5:28 AM EST) WBC 6.6 3.8 - 10.8 10E3/uL 10/22/2025 5:48 AM EST [facility] RBC 2.84(L) 4.20 - 5.80 10E6/uL 10/22/2025 5:48 AM EST [facility] Hemoglobin 9.3(L) 13.2 - 17.1 g/dL 10/22/2025 5:48 AM EST [facility] Hematocrit 26.4(L) 38.5 - 50.0 % 10/22/2025 5:48 AM EST [facility] MCV 92.8 80.0 - 100.0 fL 10/22/2025 5:48 AM EST [facility] MCH 32.8 27.0 - 33.0 pg 10/22/2025 5:48 AM EST [facility] MCHC 35.4 32.0 - 36.0 g/dL 10/22/2025 5:48 AM EST [facility] RDW 16.0(H) 11.0 - 15.0 % 10/22/2025 5:48 AM EST [facility] Platelets 22(L) 140 - 400 10E3/uL 10/22/2025 5:48 AM EST [facility] Comment: CNV Specimen checked for clots. None detected. MPV 9.1 7.5 - 11.5 fL 10/22/2025 5:48 AM EST [facility] Whole Blood 10/22/2025 5:28 AM EST 10/22/2025 5:42 AM EST us Aspen Parr MD LAB BLOOD ORDERABLES Final Resul t Performing Organization Address City/State/[facility] Co de Phone Number [facility] [address] * (ABNORMAL) Hepatic Function Panel (10/22/2025 5:28 AM EST) Total Bilirubin 1.0 0.0 - 1.5 mg/dL 10/22/2025 6:20 AM EST [facility] Bilirubin, Direct 0.28 0.00 - 0.40 mg/dL 10/22/2025 6:20 AM [facility] AST 42(H) 13 - 39 U/L 10/22/2025 6:20 AM [facility] ALT 270(H) 7 - 52 U/L 10/22/2025 6:20 AM [facility] Alkaline Phosphatase 84 36 - 125 U/L 10/22/2025 6:20 AM EST [facility] Total Protein 4.3(L) 6.4 - 8.9 g/dL 10/22/2025 6:20 AM EST [facility] Albumin 2.1(L) 3.5 - 5.7 g/dL 10/22/2025 6:20 AM EST [facility] Bilirubin, Indirect 0.72 0.00 - 1.10 mg/dL 10/22/2025 6:20 AM EST [facility] Plasma 10/22/2025 5:28 AM EST 10/22/2025 5:42 AM EST us Aspen Parr MD LAB BLOOD ORDERABLES Final Resul t [facility] [address] [place] [address], [facility] * (ABNORMAL) Basic metabolic panel (10/22/2025 5:28 AM EST) Sodium 138 133 - 146 mmol/L 10/22/2025 6:20 AM EST [facility] Potassium 3.2(L) 3.5 - 5.3 mmol/L 10/22/2025 6:20 AM EST [facility] Chloride 107 98 - 110 mmol/L 10/22/2025 6:20 AM EST [facility] CO2 25 21 - 33 mmol/L 10/22/2025 6:20 AM EST [facility] Comment:High lactate dehydro genase concentrations in patient samples may cause falsely increased bicarbonate results. If markedly elevated LDH is observed or suspected, please assess results in conjunction with patient`s clinical presentation. In cases of discrepant results, consider evaluating CO2 in with a blood gas order. Anion Gap 6 3 - 16 mmol/L 10/22/2025 6:20 AM EST [facility] BUN 25 7 - 25 mg/dL 10/22/2025 6:20 AM EST [facility] Creatinine 0.81 0.60 - 1.30 mg/dL 10/22/2025 6:20 AM EST [facility] Glucose 100 70 - 100 mg/dL 10/22/2025 6:20 AM EST [facility] Calcium 6.8(L) 8.6 - 10.3 mg/dL 10/22/2025 6:20 AM EST [facility] Osmolality, Calculated 290 278 - 305 mOsm/kg 10/22/2025 6:20 AM EST [facility] EGFR >90 10/22/2025 6:20 AM EST [facility] Comment: As of 2022, the [...] ORDERABLES Final Resul t Performing Organization Address [facility]/ZIP Co de Phone Number [facility] [address] * (ABNORMAL) POC Glucose Monitoring Device (10/21/2025 4:31 PM EST) POC Glucose Monitoring Device 230(H) 70 - 100 mg/dL 10/21/2025 4:32 PM EST [facility] Blood 10/21/2025 4:31 PM EST 10/21/2025 4:32 PM EST Vani Winkler MD POINT OF CARE TEST ORDERABLE S Final Result Performing Organization Address [facility]/ZIP Co de Phone Number [facility] [address] * (ABNORMAL) POC Glucose Monitoring Device (10/21/2025 12:27 PM EST) POC Glucose Monitoring Device 181(H) 70 - 100 mg/dL 10/21/2025 12:27 PM EST [facility] Blood 10/21/2025 12:2 7 PM EST 10/21/2025 12:27 PM EST Vani Winkler MD POINT OF CARE TEST ORDERABLE S Final Result [facility] [address] [facility]. [address] * Tacrolimus level (10/21/2025 8:30 AM EST) Pathologist [facility] Tacrolimus (LC-MS) 6.9 3.0 - 15.0 ng/mL 10/21/2025 3:07 PM EST [facility] Comment:Performed via liquid chromatography tandem mass spectrometry. Detection limit: 1 ng/mL. Individual target concentrations may vary due to target organ and time after transplant. This test has been developed and its performance characteristics determined by [facility] which is certified under the Clinical [...] ORDERABLES Final Re sult Performing Organization Address [facility] Co de Phone Number [facility] [address] [facility]. [address] * (ABNORMAL) POC Glucose Monitoring Device (10/21/2025 8:18 AM EST) POC Glucose Monitoring Device 112(H) 70 - 100 mg/dL 10/21/2025 8:28 AM EST [facility] Blood 10/21/2025 8:18 AM EST 10/21/2025 8:28 AM EST Vani Winkler MD POINT OF CARE TEST ORDERABLE S Final Result [facility] [address] * (ABNORMAL) Hepatic Function Panel (10/21/2025 6:35 AM EST) Total Bilirubin 0.9 0.0 - 1.5 mg/dL 10/21/2025 7:45 AM EST [facility] Bilirubin, Direct 0.41(H) 0.00 - 0.40 mg/dL 10/21/2025 7:45 AM EST [facility] AST 64(H) 13 - 39 U/L 10/21/2025 7:45 AM EST [facility] ALT 389(H) 7 - 52 U/L 10/21/2025 7:45 AM EST [facility] Alkaline Phosphatase 83 36 - 125 U/L 10/21/2025 7:45 AM EST [facility] Total Protein 4.3(L) 6.4 - 8.9 g/dL 10/21/2025 7:45 AM EST [facility] Albumin 2.2(L) 3.5 - 5.7 g/dL 10/21/2025 7:45 AM EST [facility] Bilirubin, Indirect 0.49 0.00 - 1.10 mg/dL 10/21/2025 7:45 AM EST [facility] Plasma 10/21/2025 6:35 AM EST 10/21/2025 6:58 AM EST Aspen Parr MD LAB BLOOD ORDERABLES Final Resul t Performing Organization Address [facility] Co de Phone Number [facility] [address] [facility]. [address] * Magnesium (10/21/2025 6:35 AM EST) Magnesium 2.0 1.5 - 2.5 mg/dL 10/21/2025 7:45 AM EST [facility] Plasma 10/21/2025 6:35 AM EST 10/21/2025 6:58 AM EST Aspen Parr MD LAB BLOOD ORDERABLES Final Resul t Performing Organization Address City/[facility]/ZIP Co de Phone Number [facility] [address] [facility]. [address] * (ABNORMAL) Renal Function Panel w/EGFR (10/21/2025 6:35 AM EST) Sodium 139 133 - 146 mmol/L 10/21/2025 7:45 AM EST [facility] Potassium 3.5 3.5 - 5.3 mmol/L 10/21/2025 7:45 AM EST [facility] Chloride 108 98 - 110 mmol/L [...] mmol/L 10/21/2025 7:45 AM EST [facility] BUN 39(H) 7 - 25 mg/dL 10/21/2025 7:45 AM [facility] Creatinine 0.96 0.60 - 1.30 mg/dL 10/21/2025 7:45 AM [facility] Glucose 126(H) 70 - 100 mg/dL 10/21/2025 7:45 AM EST [facility] Calcium 6.8(L) 8.6 - 10.3 mg/dL 10/21/2025 7:45 AM [facility] Phosphorus 2.8 2.1 - 4.7 mg/dL 10/21/2025 7:45 AM [facility] Albumin 2.2(L) 3.5 - 5.7 g/dL 10/21/2025 7:45 AM [facility] Osmolality, Calculated 299 278 - 305 mOsm/kg 10/21/2025 7:45 AM EST [facility] EGFR 88 10/21/2025 7:45 AM [facility] [...] BLOOD ORDERABLES Final Resul t [facility] [address] * (ABNORMAL) CBC (10/21/2025 6:35 AM EST) WBC 8.4 3.8 - 10.8 10E3/uL 10/21/2025 7:55 AM EST [facility] RBC 2.68(L) 4.20 - 5.80 10E6/uL 10/21/2025 7:55 AM EST [facility] Hemoglobin 8.9(L) 13.2 - 17.1 g/dL 10/21/2025 7:55 AM EST [facility] Hematocrit 24.8(L) 38.5 - 50.0 % 10/21/2025 7:55 AM EST [facility] MCV 92.6 80.0 - 100.0 fL 10/21/2025 7:55 AM EST [facility] MCH 33.3(H) 27.0 - 33.0 pg 10/21/2025 7:55 AM EST [facility] MCHC 36.0 32.0 - 36.0 g/dL 10/21/2025 7:55 AM EST [facility] RDW 16.9(H) 11.0 - 15.0 % 10/21/2025 7:55 AM EST [facility] Platelets 20(L) 140 - 400 10E3/uL 10/21/2025 7:55 AM EST [facility] Comment: CNV Specimen checked for clots. None detected. MPV 8.5 7.5 - 11.5 fL 10/21/2025 7:55 AM EST [facility] Whole Blood 10/21/2025 6:35 AM EST 10/21/2025 6:58 AM EST Aspen Parr MD LAB BLOOD ORDERABLES Final Resul t [facility] [address] [facility]. [address] * (ABNORMAL) POC Glucose Monitoring Device (10/20/2025 5:17 PM EST) POC Glucose Monitoring Device 195(H) 70 - 100 mg/dL 10/20/2025 5:18 PM EST [facility] Blood 10/20/2025 5:17 PM EST 10/20/2025 5:18 PM EST Vani Winkler MD POINT OF CARE TEST ORDERABLE S Final Result Performing Organization Address [facility] Co de Phone Number [facility] [address] [facility]. [address] * (ABNORMAL) POC Glucose Monitoring Device (10/20/2025 2:24 PM EST) POC Glucose Monitoring Device 205(H) 70 - 100 mg/dL 10/20/2025 2:24 PM EST [facility] Blood 10/20/2025 2:24 PM EST 10/20/2025 2:24 PM EST Vani Winkler MD POINT OF CARE TEST ORDERABLE S Final Result Performing Organization Address City/[facility]/ZIP Co de Phone Number [facility] [address] [facility]. [address] * Tacrolimus level (10/20/2025 10:31 AM EST) Tacrolimus (LC-MS) 7.9 3.0 - 15.0 ng/mL 10/20/2025 2:25 PM EST [facility] Comment:Performed via liquid chromatography tandem mass spectrometry. Detection limit: 1 ng/mL. Individual target concentrations may vary due to target organ and time after transplant. This test has been developed and its performance characteristics determined by [facility] which is certified under the Clinical Laboratory [...] ORDERABLES Final Re sult Performing Organization Address [facility] Co de Phone Number [facility] [address] [place] [address]. [address] * (ABNORMAL) POC Glucose Monitoring Device (10/20/2025 9:24 AM EST) POC Glucose Monitoring Device 227(H) 70 - 100 mg/dL 10/20/2025 9:25 AM EST [facility] Blood 10/20/2025 9:24 AM EST 10/20/2025 9:25 AM EST Vani Winkler MD POINT OF CARE TEST ORDERABLE S Final Result Performing Organization Address [facility] Co de Phone Number [facility] [address] [place] [address]. [address] * Magnesium (10/20/2025 5:31 AM EST) Magnesium 2.1 1.5 - 2.5 mg/dL 10/20/2025 7:35 AM EST [facility] Plasma 10/20/2025 5:31 AM EST 10/20/2025 5:42 AM EST Aspen Parr MD LAB BLOOD ORDERABLES Final Resul t Performing Organization Address [facility] Co de Phone Number [facility] [address] [place] [address]. [address] * (ABNORMAL) Hepatic Function Panel (10/20/2025 5:31 AM EST) Total Bilirubin 0.9 0.0 - 1.5 mg/dL 10/20/2025 7:35 AM EST [facility] Bilirubin, Direct 0.43(H) 0.00 - 0.40 mg/dL 10/20/2025 7:35 AM EST [facility] AST 161(H) 13 - 39 U/L 10/20/2025 7:35 AM EST [facility] ALT 532(H) 7 - 52 U/L 10/20/2025 7:35 AM EST [facility] Alkaline Phosphatase 67 36 - 125 U/L 10/20/2025 7:35 AM EST [facility] Total Protein 4.2(L) 6.4 - 8.9 g/dL 10/20/2025 7:35 AM EST [facility] Albumin 2.2(L) 3.5 - 5.7 g/dL 10/20/2025 7:35 AM EST [facility] Bilirubin, Indirect 0.47 0.00 - 1.10 mg/dL 10/20/2025 7:35 AM EST [facility] Plasma 10/20/2025 5:31 AM EST 10/20/2025 5:42 AM EST us Aspen Parr MD LAB BLOOD ORDERABLES Final Resul t [facility] [address] * (ABNORMAL) Renal Function Panel w/EGFR (10/20/2025 5:31 AM EST) Sodium 142 133 - 146 mmol/L 10/20/2025 7:23 AM EST [facility] Potassium 3.8 3.5 - 5.3 mmol/L 10/20/2025 7:23 AM EST [facility] Chloride 111(H) 98 - 110 mmol/L 10/20/2025 7:23 AM EST [facility] CO2 25 21 - 33 mmol/L 10/20/2025 7:23 AM EST [facility] Comment:High lactate dehydro genase concentrations in patient samples may cause falsely increased bicarbonate results. If markedly elevated LDH is observed or suspected, please assess results in conjunction with patient`s clinical presentation. In cases of discrepant results, consider evaluating CO2 in with a blood gas order. Anion Gap 6 3 - 16 mmol/L 10/20/2025 7:23 AM EST [facility] BUN 47(H) 7 - 25 mg/dL 10/20/2025 7:23 AM [facility] Creatinine 1.15 0.60 - 1.30 mg/dL 10/20/2025 7:23 AM [facility] Glucose 198(H) 70 - 100 mg/dL 10/20/2025 7:23 AM [facility] Calcium 6.8(L) 8.6 - 10.3 mg/dL 10/20/2025 7:23 AM [facility] Phosphorus 4.8(H) 2.1 - 4.7 mg/dL 10/20/2025 7:35 AM [facility] Albumin 2.2(L) 3.5 - 5.7 g/dL 10/20/2025 7:35 AM [facility] Osmolality, Calculated 312(H) 278 - 305 mOsm/kg 10/20/2025 7:23 AM [facility] EGFR 71 10/20/2025 7:23 AM [facility] Comment:As of [...] BLOOD ORDERABLES Final Resul t [facility] [address] * (ABNORMAL) CBC (10/20/2025 5:31 AM EST) WBC 6.1 3.8 - 10.8 10E3/uL 10/20/2025 6:18 AM EST [facility] RBC 2.64(L) 4.20 - 5.80 10E6/uL 10/20/2025 6:18 AM EST [facility] Hemoglobin 8.5(L) 13.2 - 17.1 g/dL 10/20/2025 6:18 AM EST [facility] Hematocrit 24.6(L) 38.5 - 50.0 % 10/20/2025 6:18 AM EST [facility] MCV 93.2 80.0 - 100.0 fL 10/20/2025 6:18 AM EST [facility] MCH 32.2 27.0 - 33.0 pg 10/20/2025 6:18 AM EST [facility] MCHC 34.6 32.0 - 36.0 g/dL 10/20/2025 6:18 AM EST [facility] RDW 17.4(H) 11.0 - 15.0 % 10/20/2025 6:18 AM EST [facility] Platelets 17(LL) 140 - 400 10E3/uL 10/20/2025 6:18 AM EST [facility] Comment: Results verified by repeat analysis. Critical Result PLT:17 Called to and read back by ALEKSANDR SMITH RN at: 10/20/2025 06:18:19 by:DEJON ARREGUINV 8.4 7.5 - 11.5 fL 10/20/2025 6:18 AM EST [facility] Whole Blood 10/20/2025 5:31 AM EST 10/20/2025 5:42 AM EST us Aspen Parr MD LAB BLOOD ORDERABLES Final Resul t [facility] [address] [facility]. [address] * (ABNORMAL) POC Glucose Monitoring Device (10/20/2025 5:30 AM EST) POC Glucose Monitoring Device 208(H) 70 - 100 mg/dL 10/20/2025 5:31 AM EST [facility] Blood 10/20/2025 5:30 AM EST 10/20/2025 5:31 AM EST Vani Winkler MD POINT OF CARE TEST ORDERABLE S Final Result Performing Organization Address City/[facility]/ZIP Co de Phone Number [facility] [address] [facility]. [address] * (ABNORMAL) Protime-INR (10/19/2025 11:03 PM EST) Protime 18.2(H) 12.1 - 15.1 seconds 10/19/2025 11:27 PM EST [facility] INR 1.4(H) 0.9 - 1.1 10/19/2025 11:27 PM EST [facility] Comment: RECOMMENDED THERAPEUTIC RANGES USING INR : Stable oral anticoagulant therapy: 2.0 - 3.0 Mechanical prosthetic heart valve: 2.5 - 3.5 Recurrent acute myocardial infarction: 2.5 - 3.5 Plasma 10/19/2025 11:0 3 PM EST 10/19/2025 11:07 PM EST us Aspen Parr MD LAB BLOOD ORDERABLES Final Resul t [facility] [address] [facility]. [address] * Magnesium (10/19/2025 11:03 PM EST) Magnesium 2.1 1.5 - 2.5 mg/dL 10/19/2025 11:45 PM EST [facility] Plasma 10/19/2025 11:0 3 PM EST 10/19/2025 11:07 PM EST Aspen Parr MD LAB BLOOD ORDERABLES Final Resul t Performing Organization Address [facility] Co de Phone Number [facility] [address] * (ABNORMAL) Hepatic Function Panel (10/19/2025 11:03 PM EST) Total Bilirubin 1.0 0.0 - 1.5 mg/dL 10/19/2025 11:45 PM EST [facility] Bilirubin, Direct 0.48(H) 0.00 - 0.40 mg/dL 10/19/2025 11:45 PM EST [facility] AST 223(H) 13 - 39 U/L 10/19/2025 11:45 PM EST [facility] ALT 569(H) 7 - 52 U/L 10/19/2025 11:45 PM EST [facility] Alkaline Phosphatase 68 36 - 125 U/L 10/19/2025 11:45 PM EST [facility] Total Protein 4.4(L) 6.4 - 8.9 g/dL 10/19/2025 11:45 PM EST [facility] Albumin 2.2(L) 3.5 - 5.7 g/dL 10/19/2025 11:45 PM EST [facility] Bilirubin, Indirect 0.52 0.00 - 1.10 mg/dL 10/19/2025 11:45 PM EST [facility] Plasma 10/19/2025 11:0 3 PM EST 10/19/2025 11:07 PM EST Aspen Parr MD LAB BLOOD ORDERABLES Final Resul t [facility] [address] [facility]. [address] * (ABNORMAL) Renal Function Panel w/EGFR (10/19/2025 11:03 PM EST) Sodium 144 133 - 146 mmol/L 10/19/2025 11:33 PM EST [facility] Potassium 3.6 3.5 - 5.3 mmol/L 10/19/2025 11:33 PM EST [facility] Chloride 110 98 - 110 mmol/L 10/19/2025 11:33 PM EST [facility] CO2 25 21 - 33 mmol/L [...] 3 - 16 mmol/L 10/19/2025 11:33 PM [facility] BUN 46(H) 7 - 25 [...] BLOOD ORDERABLES Final Resul t [facility] [address] [place] [address], [facility] * (ABNORMAL) CBC (10/19/2025 11:03 PM EST) WBC 7.0 3.8 - 10.8 10E3/uL 10/19/2025 11:20 PM EST [facility] RBC 2.77(L) 4.20 - 5.80 10E6/uL 10/19/2025 11:20 PM EST [facility] Hemoglobin 8.9(L) 13.2 - 17.1 g/dL 10/19/2025 11:20 PM EST [facility] Hematocrit 25.8(L) 38.5 - 50.0 % 10/19/2025 11:20 PM EST [facility] MCV 93.2 80.0 - 100.0 fL 10/19/2025 11:20 PM EST [facility] MCH 32.2 27.0 - 33.0 pg 10/19/2025 11:20 PM EST [facility] MCHC 34.5 32.0 - 36.0 g/dL 10/19/2025 11:20 PM EST [facility] RDW 18.1(H) 11.0 - 15.0 % 10/19/2025 11:20 PM EST [facility] Platelets 20(L) 140 - 400 10E3/uL 10/19/2025 11:20 PM EST [facility] Comment:CNV MPV 8.0 7.5 - 11.5 fL 10/19/2025 11:20 PM EST [facility] Whole Blood 10/19/2025 11:0 3 PM EST 10/19/2025 11:07 PM EST us Aspen Parr MD LAB BLOOD ORDERABLES Final Resul t [facility] [address] [facility] * (ABNORMAL) POC Glucose Monitoring Device (10/19/2025 11:02 PM EST) POC Glucose Monitoring Device 185(H) 70 - 100 mg/dL 10/19/2025 11:03 PM EST [facility] Blood 10/19/2025 11:0 2 PM EST 10/19/2025 11:03 PM EST Vani Winkler MD POINT OF CARE TEST ORDERABLE S Final Result [facility] [address] [facility]. [address] * (ABNORMAL) POC Glucose Monitoring Device (10/19/2025 5:24 PM EST) POC Glucose Monitoring Device 166(H) 70 - 100 mg/dL 10/19/2025 5:35 PM EST [facility] Blood 10/19/2025 5:24 PM EST 10/19/2025 5:35 PM EST Vani Winkler MD POINT OF CARE TEST ORDERABLE S Final Result [facility] [address] [facility]. [address] * (ABNORMAL) POC Glucose Monitoring Device (10/19/2025 12:26 PM EST) POC Glucose Monitoring Device 156(H) 70 - 100 mg/dL 10/19/2025 12:27 PM EST [facility] Blood 10/19/2025 12:2 6 PM EST 10/19/2025 12:27 PM EST Vani Winkler MD POINT OF CARE TEST ORDERABLE S Final Result [facility] [address] [facility]. [address] * (ABNORMAL) POC Glucose Monitoring Device (10/19/2025 9:51 AM EST) Pathologist [facility] POC Glucose Monitoring Device 110(H) 70 - 100 mg/dL 10/19/2025 9:52 AM EST [facility] Blood 10/19/2025 9:51 AM EST 10/19/2025 9:52 AM EST Vani Winkler MD POINT OF CARE TEST ORDERABLE S Final Result Performing Organization Address [facility] Co de Phone Number [facility] [address] [facility]. [address] * (ABNORMAL) Tacrolimus level (10/19/2025 8:29 AM EST) [facility] Tacrolimus (LC-MS) 2.1(L) 3.0 - 15.0 ng/mL 10/19/2025 3:06 PM EST [facility] Comment:Performed via liquid chromatography tandem mass spectrometry. Detection limit: 1 ng/mL. Individual target concentrations may vary due to target organ and time after transplant. This test has been developed and its performance characteristics determined by [facility] which is certified under the Clinical [...] ORDERABLES Final Re sult Performing Organization Address City/[facility]/ZIP Co de Phone Number [facility] [address] [facility]. [address] * (ABNORMAL) Protime-INR (10/19/2025 8:29 AM EST) Protime 19.1(H) 12.1 - 15.1 seconds 10/19/2025 9:09 AM EST [facility] INR 1.5(H) 0.9 - 1.1 10/19/2025 9:09 AM EST [facility] Comment: RECOMMENDED THERAPEUTIC RANGES USING INR : Stable oral anticoagulant therapy: 2.0 - 3.0 Mechanical prosthetic heart valve: 2.5 - 3.5 Recurrent acute myocardial infarction: 2.5 - 3.5 Plasma 10/19/2025 8:29 AM EST 10/19/2025 8:33 AM EST Aspen Parr MD LAB BLOOD ORDERABLES Final Resul t Performing Organization Address City/[facility] Co de Phone Number [facility] [address] [facility]. [address] * Magnesium (10/19/2025 8:29 AM EST) Magnesium 2.0 1.5 - 2.5 mg/dL 10/19/2025 9:28 AM EST [facility] Plasma 10/19/2025 8:29 AM EST 10/19/2025 8:33 AM EST Aspen Parr MD LAB BLOOD ORDERABLES Final Resul t Performing Organization Address [facility] de Phone Number [facility] [address] * (ABNORMAL) Hepatic Function Panel (10/19/2025 8:29 AM EST) Total Bilirubin 1.0 0.0 - 1.5 mg/dL 10/19/2025 9:28 AM EST [facility] Bilirubin, Direct 0.44(H) 0.00 - 0.40 mg/dL 10/19/2025 9:28 AM EST [facility] AST 450(H) 13 - 39 U/L 10/19/2025 9:28 AM EST [facility] ALT 725(H) 7 - 52 U/L 10/19/2025 9:28 AM EST [facility] Alkaline Phosphatase 65 36 - 125 U/L 10/19/2025 9:28 AM EST [facility] Total Protein 4.4(L) 6.4 - 8.9 g/dL 10/19/2025 9:28 AM EST [facility] Albumin 2.2(L) 3.5 - 5.7 g/dL 10/19/2025 9:28 AM [facility] Bilirubin, Indirect 0.56 0.00 - 1.10 mg/dL 10/19/2025 9:28 AM [facility] Plasma 10/19/2025 8:29 AM EST 10/19/2025 8:33 AM EST us Aspen Parr MD LAB BLOOD ORDERABLES Final Resul t [facility] [address] [place] [address], [facility] * (ABNORMAL) Renal Function Panel w/EGFR (10/19/2025 8:29 AM EST) Sodium 145 133 - 146 mmol/L 10/19/2025 9:09 AM [facility] Potassium 3.6 3.5 - [...] 3 - 16 mmol/L 10/19/2025 9:09 AM [facility] BUN 38(H) 7 - [...] mg/dL 10/19/2025 9:28 AM EST [facility] Albumin 2.2(L) 3.5 - 5.7 g/dL 10/19/2025 9:28 AM EST [facility] Osmolality, Calculated 311(H) 278 - 305 mOsm/kg 10/19/2025 9:09 AM EST [facility] EGFR 70 10/19/2025 9:09 AM EST [facility] Comment:As of 2022, the estimated [...] BLOOD ORDERABLES Final Resul t [facility] [address] * (ABNORMAL) CBC (10/19/2025 8:29 AM EST) WBC 9.8 3.8 - 10.8 10E3/uL 10/19/2025 9:06 AM EST [facility] RBC 2.90(L) 4.20 - 5.80 10E6/uL 10/19/2025 9:06 AM EST [facility] Hemoglobin 9.6(L) 13.2 - 17.1 g/dL 10/19/2025 9:06 AM EST [facility] Hematocrit 26.8(L) 38.5 - 50.0 % 10/19/2025 9:06 AM EST [facility] MCV 92.4 80.0 - 100.0 fL 10/19/2025 9:06 AM EST [facility] MCH 33.2(H) 27.0 - 33.0 pg 10/19/2025 9:06 AM EST [facility] MCHC 36.0 32.0 - 36.0 g/dL 10/19/2025 9:06 AM EST [facility] RDW 18.5(H) 11.0 - 15.0 % 10/19/2025 9:06 AM [facility] Platelets 22(L) 140 - 400 10E3/uL 10/19/2025 9:06 AM EST [facility] Comment: CNV Specimen checked for clots. None detected. MPV 8.5 7.5 - 11.5 fL 10/19/2025 9:06 AM EST [facility] Whole Blood 10/19/2025 8:29 AM EST 10/19/2025 8:33 AM EST us Aspen Parr MD LAB BLOOD ORDERABLES Final Resul t [facility] [address] * (ABNORMAL) POC Glucose Monitoring Device (10/19/2025 8:28 AM EST) POC Glucose Monitoring Device 122(H) 70 - 100 mg/dL 10/19/2025 8:39 AM EST [facility] Blood 10/19/2025 8:28 AM EST 10/19/2025 8:38 AM EST Vani Winkler MD POINT OF CARE TEST ORDERABLE S Final Result [facility] [address] * (ABNORMAL) POC Glucose Monitoring Device (10/19/2025 7:07 AM EST) POC Glucose Monitoring Device 136(H) 70 - 100 mg/dL 10/19/2025 7:08 AM EST [facility] Blood 10/19/2025 7:07 AM EST 10/19/2025 7:08 AM EST Vani Winkler MD POINT OF CARE TEST ORDERABLE S Final Result Performing Organization Address City/[facility]/ZIP Co de Phone Number [facility] [address] [facility]. [address] * (ABNORMAL) POC Glucose Monitoring Device (10/19/2025 6:28 AM EST) POC Glucose Monitoring Device 109(H) 70 - 100 mg/dL 10/19/2025 6:29 AM EST [facility] Blood 10/19/2025 6:28 AM EST 10/19/2025 6:29 AM EST Vani Winkler MD POINT OF CARE TEST ORDERABLE S Final Result Performing Organization Address [facility] Co de Phone Number [facility] [address] [facility]. [address] * (ABNORMAL) POC Glucose Monitoring Device (10/19/2025 6:10 AM EST) POC Glucose Monitoring Device 108(H) 70 - 100 mg/dL 10/19/2025 6:12 AM EST [facility] Blood 10/19/2025 6:10 AM EST 10/19/2025 6:11 AM EST Vani Winkler MD POINT OF CARE TEST ORDERABLE S Final Result Performing Organization Address City/[facility] Co de Phone Number [facility] [address] [facility]. [address] * (ABNORMAL) POC Glucose Monitoring Device (10/19/2025 4:06 AM EST) POC Glucose Monitoring Device 115(H) 70 - 100 mg/dL 10/19/2025 4:07 AM EST [facility] Blood 10/19/2025 4:06 AM EST 10/19/2025 4:07 AM EST Vani Winkler MD POINT OF CARE TEST ORDERABLE S Final Result Performing Organization Address [facility] de Phone Number [facility] [address] [place] [address]. [address] * (ABNORMAL) POC Glucose Monitoring Device (10/19/2025 2:04 AM EST) POC Glucose Monitoring Device 129(H) 70 - 100 mg/dL 10/19/2025 2:06 AM EST [facility] Blood 10/19/2025 2:04 AM EST 10/19/2025 2:05 AM EST us Vani Winkler MD POINT OF CARE TEST ORDERABLE S Final Result Performing Organization Address [facility] de Phone Number [facility] [address] [place] [address]. [address] * (ABNORMAL) POC Glucose Monitoring Device (10/18/2025 11:57 PM EST) POC Glucose Monitoring Device 131(H) 70 - 100 mg/dL 10/18/2025 11:58 PM EST [facility] Blood 10/18/2025 11:5 7 PM EST 10/18/2025 11:58 PM EST us Vani Winkler MD POINT OF CARE TEST ORDERABLE S Final Result Performing Organization Address [facility] de Phone Number [address] * Lactic Acid (10/18/2025 10:20 PM EST) Lactate 0.8 0.5 - 2.2 mmol/L 10/18/2025 11:03 PM EST [facility] Plasma 10/18/2025 10:2 0 PM EST 10/18/2025 10:26 PM EST us Aspen Parr MD LAB BLOOD ORDERABLES Final Resul t [facility] [address] [facility]. [address] * Magnesium (10/18/2025 10:20 PM EST) Magnesium 1.8 1.5 - 2.5 mg/dL 10/18/2025 11:18 PM EST [facility] Plasma 10/18/2025 10:2 0 PM EST 10/18/2025 10:26 PM EST Aspen Parr MD LAB BLOOD ORDERABLES Final Resul t Performing Organization Address City/[facility] Co de Phone Number [facility] [address] [facility]. [address] * (ABNORMAL) Hepatic Function Panel (10/18/2025 10:20 PM EST) Total Bilirubin 1.0 0.0 - 1.5 mg/dL 10/18/2025 11:18 PM EST [facility] Bilirubin, Direct 0.51(H) 0.00 - 0.40 mg/dL 10/18/2025 11:18 PM EST [facility] AST 717(H) 13 - 39 U/L 10/18/2025 11:18 PM EST [facility] ALT 792(H) 7 - 52 U/L 10/18/2025 11:18 PM EST [facility] Alkaline Phosphatase 62 36 - 125 U/L 10/18/2025 11:18 PM EST [facility] Total Protein 4.3(L) 6.4 - 8.9 g/dL 10/18/2025 11:18 PM EST [facility] Albumin 2.1(L) 3.5 - 5.7 g/dL 10/18/2025 11:18 PM EST [facility] Bilirubin, Indirect 0.49 0.00 - 1.10 mg/dL 10/18/2025 11:18 PM EST [facility] Plasma 10/18/2025 10:2 0 PM EST 10/18/2025 10:26 PM EST Aspen Parr MD LAB BLOOD ORDERABLES Final Resul t [facility] [address] [place] [address], [facility] * (ABNORMAL) Renal Function Panel w/EGFR (10/18/2025 10:20 PM EST) Sodium 146 133 - 146 mmol/L 10/18/2025 11:05 PM EST [facility] Potassium 3.1(L) 3.5 - 5.3 mmol/L [...] ORDERABLES Final Resul t Performing Organization Address [facility] Co de Phone Number [facility] [address] [facility]. [address] * (ABNORMAL) Protime-INR (10/18/2025 10:20 PM EST) Protime 21.9(H) 12.1 - 15.1 seconds 10/18/2025 10:52 PM EST [facility] INR 1.8(H) 0.9 - 1.1 10/18/2025 10:52 PM EST [facility] Comment: RECOMMENDED THERAPEUTIC RANGES USING INR : Stable oral anticoagulant therapy: 2.0 - 3.0 Mechanical prosthetic heart valve: 2.5 - 3.5 Recurrent acute myocardial infarction: 2.5 - 3.5 Plasma 10/18/2025 10:2 0 PM EST 10/18/2025 10:26 PM EST Aspen Parr MD LAB BLOOD ORDERABLES Final Resul t Performing Organization Address City/[facility]/ZIP Co de Phone Number [facility] [address] * (ABNORMAL) CBC (10/18/2025 10:20 PM EST) WBC 11.4(H) 3.8 - 10.8 10E3/uL 10/18/2025 10:59 PM EST [facility] RBC 2.92(L) 4.20 - 5.80 10E6/uL 10/18/2025 10:59 PM EST [facility] Hemoglobin 9.5(L) 13.2 - 17.1 g/dL 10/18/2025 10:59 PM EST [facility] Hematocrit 26.9(L) 38.5 - 50.0 % 10/18/2025 10:59 PM EST [facility] MCV 92.2 80.0 - 100.0 fL 10/18/2025 10:59 PM EST [facility] MCH 32.7 27.0 - 33.0 pg 10/18/2025 10:59 PM EST [facility] MCHC 35.4 32.0 - 36.0 g/dL 10/18/2025 10:59 PM EST [facility] RDW 18.3(H) 11.0 - 15.0 % 10/18/2025 10:59 PM EST [facility] Platelets 22(L) 140 - 400 10E3/uL 10/18/2025 10:59 PM EST [facility] Comment: CNV Specimen checked for clots. None detected. MPV 7.8 7.5 - 11.5 fL 10/18/2025 10:59 PM EST [facility] Whole Blood 10/18/2025 10:2 0 PM EST 10/18/2025 10:26 PM EST Aspen Parr MD LAB BLOOD ORDERABLES Final Resul t [facility] [address] * (ABNORMAL) POC Glucose Monitoring Device (10/18/2025 10:07 PM EST) Pathologist [facility] POC Glucose Monitoring Device 134(H) 70 - 100 mg/dL 10/18/2025 10:08 PM EST [facility] Blood 10/18/2025 10:0 7 PM EST 10/18/2025 10:08 PM EST us Vani Winkler MD POINT OF CARE TEST ORDERABLE S Final Result [facility] [address] [facility]. [address] * (ABNORMAL) POC Glucose Monitoring Device (10/18/2025 8:14 PM EST) POC Glucose Monitoring Device 138(H) 70 - 100 mg/dL 10/18/2025 8:15 PM EST [facility] Blood 10/18/2025 8:14 PM EST 10/18/2025 8:15 PM EST us Vani Winkler MD POINT OF CARE TEST ORDERABLE S Final Result Performing Organization Address [facility] Co de Phone Number [facility] [address] [facility]. [address] * Lactic Acid (10/18/2025 5:47 PM EST) Lactate 0.7 0.5 - 2.2 mmol/L 10/18/2025 8:43 PM EST [facility] Plasma 10/18/2025 5:47 PM EST 10/18/2025 7:56 PM EST us Aspen Parr MD LAB BLOOD ORDERABLES Final Resul t Performing Organization Address City/[facility]/ZIP Co de Phone Number [facility] [address] [facility]. [address] * Magnesium (10/18/2025 5:47 PM EST) Magnesium 1.9 1.5 - 2.5 mg/dL 10/18/2025 6:40 PM EST [facility] Plasma 10/18/2025 5:47 PM EST 10/18/2025 5:54 PM EST Aspen Parr MD LAB BLOOD ORDERABLES Final Resul t [facility] [address] * (ABNORMAL) Hepatic Function Panel (10/18/2025 5:47 PM EST) Total Bilirubin 1.1 0.0 - 1.5 mg/dL 10/18/2025 6:40 PM EST [facility] Bilirubin, Direct 0.56(H) 0.00 - 0.40 mg/dL 10/18/2025 6:40 PM EST [facility] AST 965(H) 13 - 39 U/L 10/18/2025 6:40 PM EST [facility] ALT 871(H) 7 - 52 U/L 10/18/2025 6:40 PM EST [facility] Alkaline Phosphatase 61 36 - 125 U/L 10/18/2025 6:40 PM EST [facility] Total Protein 4.3(L) 6.4 - 8.9 g/dL 10/18/2025 6:40 PM EST [facility] Albumin 2.2(L) 3.5 - 5.7 g/dL 10/18/2025 6:40 PM EST [facility] Bilirubin, Indirect 0.54 0.00 - 1.10 mg/dL 10/18/2025 6:40 PM EST [facility] Plasma 10/18/2025 5:47 PM EST 10/18/2025 5:54 PM EST us Aspen Parr MD LAB BLOOD ORDERABLES Final Resul t [facility] [address] [facility]. [address] * (ABNORMAL) Renal Function Panel w/EGFR (10/18/2025 5:47 PM EST) Sodium 144 133 - 146 mmol/L 10/18/2025 6:27 PM EST [facility] Potassium 3.4(L) 3.5 - 5.3 mmol/L 10/18/2025 6:27 PM EST [facility] Chloride 112(H) 98 - 110 mmol/L 10/18/2025 6:27 PM EST [facility] CO2 24 21 - 33 mmol/L 10/18/2025 6:27 PM EST [facility] Comment:High lactate dehydro genase concentrations in patient samples may cause falsely increased bicarbonate results. If markedly elevated LDH is observed or suspected, please assess results in conjunction with patient`s clinical presentation. In cases of discrepant results, consider evaluating CO2 in with a blood gas order. Anion Gap 8 3 - 16 mmol/L 10/18/2025 6:27 PM EST [facility] BUN 29(H) 7 - 25 mg/dL 10/18/2025 6:27 PM [facility] Creatinine 1.09 0.60 - 1.30 mg/dL 10/18/2025 6:27 PM [facility] Glucose 136(H) 70 - 100 mg/dL 10/18/2025 6:27 PM EST [facility] Calcium 7.5(L) 8.6 - 10.3 mg/dL 10/18/2025 6:27 PM [facility] Phosphorus 3.8 2.1 - 4.7 mg/dL 10/18/2025 6:40 PM [facility] Albumin 2.2(L) 3.5 - 5.7 g/dL 10/18/2025 6:40 PM [facility] Osmolality, Calculated 306(H) 278 - 305 mOsm/kg 10/18/2025 6:27 PM [facility] EGFR 76 10/18/2025 6:27 PM [facility] Comment:As of [...] ORDERABLES Final Resul t Performing Organization Address City/[facility]/ZIP Co de Phone Number [facility] [address] [facility]. [address] * (ABNORMAL) Protime-INR (10/18/2025 5:47 PM EST) Protime 21.8(H) 12.1 - 15.1 seconds 10/18/2025 6:13 PM EST [facility] INR 1.8(H) 0.9 - 1.1 10/18/2025 6:13 PM EST [facility] Comment: RECOMMENDED THERAPEUTIC RANGES USING INR : Stable oral anticoagulant therapy: 2.0 - 3.0 Mechanical prosthetic heart valve: 2.5 - 3.5 Recurrent acute myocardial infarction: 2.5 - 3.5 Plasma 10/18/2025 5:47 PM EST 10/18/2025 5:54 PM EST Aspen Parr MD LAB BLOOD ORDERABLES Final Resul t Performing Organization Address [facility] Co de Phone Number [facility] [address] [facility]. [address] * (ABNORMAL) CBC (10/18/2025 5:47 PM EST) WBC 11.8(H) 3.8 - 10.8 10E3/uL 10/18/2025 6:06 PM EST [facility] RBC 3.06(L) 4.20 - 5.80 10E6/uL 10/18/2025 6:06 PM EST [facility] Hemoglobin 10.0(L) 13.2 - 17.1 g/dL 10/18/2025 6:06 PM EST [facility] Hematocrit 28.3(L) 38.5 - 50.0 % 10/18/2025 6:06 PM EST [facility] MCV 92.5 80.0 - 100.0 fL 10/18/2025 6:06 PM EST [facility] MCH 32.5 27.0 - 33.0 pg 10/18/2025 6:06 PM EST [facility] MCHC 35.2 32.0 - 36.0 g/dL 10/18/2025 6:06 PM EST [facility] RDW 18.6(H) 11.0 - 15.0 % 10/18/2025 6:06 PM EST [facility] Platelets 22(L) 140 - 400 10E3/uL 10/18/2025 6:06 PM EST [facility] Comment: CNV Specimen checked for clots. None detected. MPV 7.7 7.5 - 11.5 fL 10/18/2025 6:06 PM EST [facility] Whole Blood 10/18/2025 5:47 PM EST 10/18/2025 5:54 PM EST Aspen Parr MD LAB BLOOD ORDERABLES Final Resul t Performing Organization Address City/[facility]/ZIP Co de Phone Number [facility] [address] [facility]. [address] * (ABNORMAL) POC Glucose Monitoring Device (10/18/2025 5:45 PM EST) POC Glucose Monitoring Device 135(H) 70 - 100 mg/dL 10/18/2025 5:46 PM EST [facility] Blood 10/18/2025 5:45 PM EST 10/18/2025 5:46 PM EST Vani Winkler MD POINT OF CARE TEST ORDERABLE S Final Result Performing Organization Address City/[facility]/ZIP Co de Phone Number [facility] [address] [facility]. [address] * (ABNORMAL) POC Glucose Monitoring Device (10/18/2025 3:06 PM EST) POC Glucose Monitoring Device 128(H) 70 - 100 mg/dL 10/18/2025 3:07 PM EST [facility] Blood 10/18/2025 3:06 PM EST 10/18/2025 3:07 PM EST Vani Winkler MD POINT OF CARE TEST ORDERABLE S Final Result [facility] [address] [facility]. [address] * (ABNORMAL) POC Glucose Monitoring Device (10/18/2025 1:15 PM EST) POC Glucose Monitoring Device 128(H) 70 - 100 mg/dL 10/18/2025 1:15 PM EST [facility] Blood 10/18/2025 1:15 PM EST 10/18/2025 1:15 PM EST Vani Winkler MD POINT OF CARE TEST ORDERABLE S Final Result Performing Organization Address City/[facility]/ZIP Co de Phone Number [facility] [address] [facility]. [address] * (ABNORMAL) POC Glucose Monitoring Device (10/18/2025 12:12 PM EST) POC Glucose Monitoring Device 124(H) 70 - 100 mg/dL 10/18/2025 12:13 PM EST [facility] Blood 10/18/2025 12:1 2 PM EST 10/18/2025 12:13 PM EST Vani Winkler MD POINT OF CARE TEST ORDERABLE S Final Result Performing Organization Address City/[facility]/ZIP Co de Phone Number [facility] [address] [facility]. [address] * Prepare Fresh Frozen Plasma (10/18/2025 11:58 AM EST) Product Code [id number] [facility] Unit Number [id number] [facility] Dispense Status Released from [employer] [facility]LL Blood Expiration Date [facility] Coding System [id number] [facility] Product Code V2092N79 [facility] Unit Number [id number] [facility]LL Dispense Status Released from [employer] [facility] Blood Expiration Date HCLL Coding System [id number] HCLL Product Code Z5148E24 [facility] Unit Number [id number] [facility] Dispense Status Released from [employer] [facility] Blood Expiration Date HCLL Coding System [id number] HCLL Product Code X7996Z77 [facility] Unit Number [id number] [facility] Dispense Status Released from [employer] [facility] Blood Expiration Date HCLL Coding System [id number] HCLL Product Code Q0086B75 [facility] Unit Number [id number] [facility] Dispense Status Released from [employer] [facility] Blood Expiration Date HCLL Coding System [id number] HCLL us Attending Provider Unknown BLOOD BANK PRODUCT OR DERABLES Final Result Performing Organization Address City/[facility]/ZIP Co de Phone Number [facility] * Lactic Acid (10/18/2025 11:21 AM EST) Lactate 0.7 0.5 - 2.2 mmol/L 10/18/2025 12:05 PM EST [facility] Plasma 10/18/2025 11:2 1 AM EST 10/18/2025 11:25 AM EST Aspen Parr MD LAB BLOOD ORDERABLES Final Resul t Performing Organization Address [facility] de Phone Number [facility] [address] [facility]. [address] * Magnesium (10/18/2025 11:21 AM EST) Magnesium 2.0 1.5 - 2.5 mg/dL 10/18/2025 12:23 PM EST [facility] Plasma 10/18/2025 11:2 1 AM EST 10/18/2025 11:25 AM EST Aspen Parr MD LAB BLOOD ORDERABLES Final Resul t Performing Organization Address [facility] Co de Phone Number [facility] [address] [facility]. [address] * (ABNORMAL) Hepatic Function Panel (10/18/2025 11:21 AM EST) Total Bilirubin 1.3 0.0 - 1.5 mg/dL 10/18/2025 12:23 PM EST [facility] Bilirubin, Direct 0.74(H) 0.00 - 0.40 mg/dL 10/18/2025 12:23 PM EST [facility] AST 1,689(H) 13 - 39 U/L 10/18/2025 12:23 PM EST [facility] ALT 1034(H) 7 - 52 U/L 10/18/2025 12:23 PM EST [facility] Alkaline Phosphatase 60 36 - 125 U/L 10/18/2025 12:23 PM EST [facility] Total Protein 4.3(L) 6.4 - 8.9 g/dL 10/18/2025 12:23 PM EST [facility] Albumin 2.3(L) 3.5 - 5.7 g/dL 10/18/2025 12:23 PM EST [facility] Bilirubin, Indirect 0.56 0.00 - 1.10 mg/dL 10/18/2025 12:23 PM EST [facility] Plasma 10/18/2025 11:2 1 AM EST 10/18/2025 11:25 AM EST us Aspen Parr MD LAB BLOOD ORDERABLES Final Resul t [facility] [address] * (ABNORMAL) Renal Function Panel w/EGFR (10/18/2025 11:21 AM EST) Sodium 146 133 - 146 mmol/L 10/18/2025 12:06 PM EST [facility] Potassium 3.9 3.5 - 5.3 mmol/L 10/18/2025 12:06 PM EST [facility] Chloride 114(H) 98 - 110 mmol/L 10/18/2025 12:06 PM EST [facility] CO2 25 21 - 33 mmol/L 10/18/2025 12:06 PM EST [facility] Comment:High lactate dehydro genase concentrations in patient samples may cause falsely increased bicarbonate results. If markedly elevated LDH is observed or suspected, please assess results in conjunction with patient`s clinical presentation. In cases of discrepant results, consider evaluating CO2 in with a blood gas order. Anion Gap 7 3 - 16 mmol/L 10/18/2025 12:06 PM EST [facility] BUN 26(H) 7 - 25 mg/dL 10/18/2025 12:06 PM [facility] Creatinine 1.01 0.60 - 1.30 mg/dL 10/18/2025 12:06 PM [facility] Glucose 113(H) 70 - 100 mg/dL 10/18/2025 12:06 PM [facility] Calcium 7.8(L) 8.6 - 10.3 mg/dL 10/18/2025 12:06 PM [facility] Phosphorus 3.1 2.1 - 4.7 mg/dL 10/18/2025 12:23 PM [facility] Albumin 2.3(L) 3.5 - 5.7 g/dL 10/18/2025 12:23 PM [facility] Osmolality, Calculated 308(H) 278 - 305 mOsm/kg 10/18/2025 12:06 PM [facility] EGFR 83 10/18/2025 12:06 PM [facility] Comment:As of [...] ORDERABLES Final Resul t Performing Organization Address [facility] de Phone Number [facility] [address] * (ABNORMAL) Protime-INR (10/18/2025 11:21 AM EST) Protime 23.6(H) 12.1 - 15.1 seconds 10/18/2025 11:44 AM EST [facility] INR 2.0(H) 0.9 - 1.1 10/18/2025 11:44 AM EST [facility] Comment: RECOMMENDED THERAPEUTIC RANGES USING INR : Stable oral anticoagulant therapy: 2.0 - 3.0 Mechanical prosthetic heart valve: 2.5 - 3.5 Recurrent acute myocardial infarction: 2.5 - 3.5 Plasma 10/18/2025 11:2 1 AM EST 10/18/2025 11:25 AM EST Aspen Parr MD LAB BLOOD ORDERABLES Final Resul t Performing Organization Address [facility] Co de Phone Number [facility] [address] * (ABNORMAL) CBC (10/18/2025 11:21 AM EST) WBC 10.9(H) 3.8 - 10.8 10E3/uL 10/18/2025 11:44 AM EST [facility] RBC 3.10(L) 4.20 - 5.80 10E6/uL 10/18/2025 11:44 AM EST [facility] Hemoglobin 10.2(L) 13.2 - 17.1 g/dL 10/18/2025 11:44 AM EST [facility] Hematocrit 29.0(L) 38.5 - 50.0 % 10/18/2025 11:44 AM EST [facility] MCV 93.7 80.0 - 100.0 fL 10/18/2025 11:44 AM EST [facility] MCH 32.9 27.0 - 33.0 pg 10/18/2025 11:44 AM EST [facility] MCHC 35.1 32.0 - 36.0 g/dL 10/18/2025 11:44 AM EST [facility] RDW 18.4(H) 11.0 - 15.0 % 10/18/2025 11:44 AM EST [facility] Platelets 29(L) 140 - 400 10E3/uL 10/18/2025 11:44 AM EST [facility] Comment:CNV MPV 7.6 7.5 - 11.5 fL 10/18/2025 11:44 AM EST [facility] Whole Blood 10/18/2025 11:2 1 AM EST 10/18/2025 11:25 AM EST Aspen Parr MD LAB BLOOD ORDERABLES Final Resul t [facility] [address] [facility]. [address] * (ABNORMAL) POC Glucose Monitoring Device (10/18/2025 11:04 AM EST) POC Glucose Monitoring Device 121(H) 70 - 100 mg/dL 10/18/2025 11:05 AM EST [facility] Blood 10/18/2025 11:0 4 AM EST 10/18/2025 11:05 AM EST Vani Winkler MD POINT OF CARE TEST ORDERABLE S Final Result Performing Organization Address City/[facility]/ZIP Co de Phone Number [facility] [address] [facility]. [address] * (ABNORMAL) POC Glucose Monitoring Device (10/18/2025 10:29 AM EST) POC Glucose Monitoring Device 120(H) 70 - 100 mg/dL 10/18/2025 10:34 AM EST [facility] Blood 10/18/2025 10:2 9 AM EST 10/18/2025 10:34 AM EST Vani Winkler MD POINT OF CARE TEST ORDERABLE S Final Result Performing Organization Address City/[facility]/ZIP Co de Phone Number [facility] [address] [facility]. [place], [place] [address] * US Duplex Iqk-Iyu-Eqdvpon Comp (10/18/2025 9:35 AM EST) Anatomical Region [...] EXAM: US ABDOMEN LIMITED EXAM: US DUPLEX [id number] COMPLETE INDICATION: Post-op liver transplant Day 1 [...] EXAM: US ABDOMEN LIMITED EXAM: US DUPLEX [id number] COMPLETE INDICATION: Post-op liver transplant Day 1 [...] EXAM: US ABDOMEN LIMITED EXAM: US DUPLEX [id number] COMPLETE INDICATION: Post-op liver transplant Day 1 [...] EXAM: US ABDOMEN LIMITED EXAM: US DUPLEX [id number] COMPLETE INDICATION: Post-op liver transplant Day 1 [...] 10/18/2025 9:53 AM EST Aspen Parr MD [facility] US ORDERABLES Final Result * (ABNORMAL) POC Glucose Monitoring Device (10/18/2025 9:11 AM EST) POC Glucose Monitoring Device 165(H) 70 - 100 mg/dL 10/18/2025 9:13 AM EST [facility] Blood 10/18/2025 9:11 AM EST 10/18/2025 9:12 AM EST Vani Winkler MD POINT OF CARE TEST ORDERABLE S Final Result [facility] [address] [facility]. [address] * (ABNORMAL) POC Glucose Monitoring Device (10/18/2025 7:56 AM EST) POC Glucose Monitoring Device 179(H) 70 - 100 mg/dL 10/18/2025 7:57 AM EST [facility] Blood 10/18/2025 7:56 AM EST 10/18/2025 7:57 AM EST Vani Winkler MD POINT OF CARE TEST ORDERABLE S Final Result Performing Organization Address City/[facility]/ZIP Co de Phone Number [facility] [address] [facility]. [address] * (ABNORMAL) POC Glucose Monitoring Device (10/18/2025 6:59 AM EST) POC Glucose Monitoring Device 187(H) 70 - 100 mg/dL 10/18/2025 7:00 AM EST [facility] Blood 10/18/2025 6:59 AM EST 10/18/2025 7:00 AM EST Vani Winkler MD POINT OF CARE TEST ORDERABLE S Final Result [facility] [address] [facility]. [address] * X-ray Portable Chest (10/18/2025 6:37 [...] below level of diaphragms and outside the uiuyt-is-pvcc. Right internal jugular approach pulmonary artery catheter [...] courses below level of diaphragms andoutside the kfsjh-qi-urbb. Right internal jugular approach pulmonaryartery catheter projects [...] 7:02 AM EST us Aspen Parr MD [facility] DIAGNOSTIC IMAGING ORDERABLE S Final Result * Prepare Platelets, leukoreduced, 1 Units (10/18/2025 6:17 AM EST) Product Code Q5862J99 [facility] Unit Number [id number] [facility] Dispense Status Presumed Transfused_PT HCLL Blood Expiration Date HCLL Coding System EEFE848 [facility] Blood Bank Product Oskar Torres MD BLOOD BANK PRODUCT ORDERABLES Final Result Performing Organization Address [facility]/ZIP Co de Phone Number [facility] * Prepare Platelets, leukoreduced, 2 Units (10/18/2025 6:17 AM EST) Product Code [id number] [facility] Unit Number [id number] HCLL Dispense Status Presumed Transfused_PT HCLL Blood Expiration Date HCLL Coding System PBSE490 HC[facility] Product Code P1261R87 [facility] Unit Number [id number] HCLL Dispense Status Presumed Transfused_PT HCLL Blood Expiration Date HCLL Coding System UISQ296 [facility] Blood Bank Product Slade Munoz MD BLOOD BANK PRODUCT ORDERABLES Fi nal Result Performing Organization Address City/[facility]/ZIP Co de Phone Number [facility] * Prepare RBC, leukoreduced, 5 Units (10/18/2025 6:16 AM EST) Product Code M9681Y06 [facility] Unit Number [id number] HCLL Dispense Status Presumed Transfused_PT HCLL Blood Expiration Date HCLL Coding System [id number] [facility] Product Code G8818S82 [facility] Unit Number [id number] HCLL Dispense Status Presumed Transfused_PT HCLL Blood Expiration Date HCLL Coding System NUEP488 HCLL Product Code L0571A82 [facility] Unit Number [id number] HCLL Dispense Status Presumed Transfused_PT HCLL Blood Expiration Date HCLL Coding System LRWQ366 [facility] Product Code G5659L48 [facility] Unit Number [id number] HCLL Dispense Status Released from Crossmatch_RE HCLL Blood Expiration Date HCLL Coding System PRCI764 HC[facility] Product Code B2040D52 [facility] Unit Number [id number] HCLL Dispense Status Presumed Transfused_PT HCLL Blood Expiration Date HCLL Coding System FUPT089 [facility] Blood Bank Product Kassi INTERIANO BLOOD BANK PRODUCT ORDERABLES Final Result Performing Organization Address [facility] de Phone Number [facility] * Prepare Cryoprecipitate (10/18/2025 6:15 AM EST) Product Code T5780F55 [facility] Unit Number [id number] HCLL Dispense Status Presumed Transfused_PT HCLL Blood Expiration Date HCLL Coding System TRKL748 HCLL Attending Provider Unknown BLOOD BANK PRODUCT OR DERABLES Final Result Performing Organization Address [facility] de Phone Number [facility] * Prepare Cryoprecipitate, 1 Units (10/18/2025 6:15 AM EST) Product Code B2701Z53 [facility] Unit Number [id number] HCLL Dispense Status Presumed Transfused_PT HCLL Blood Expiration Date HCLL Coding System QYDA936 [facility] Blood Bank Product Oskar Torres MD BLOOD BANK PRODUCT ORDERABLES Final Result Performing Organization Address [facility] de Phone Number [facility] * Prepare Cryoprecipitate, 1 Units (10/18/2025 6:15 AM EST) Product Code M8901N03 [facility] Unit Number [id number] HCLL Dispense Status Presumed Transfused_PT HCLL Blood Expiration Date HCLL Coding System SXZF045 HCLL Product Code F7866V98 [facility] Unit Number [id number] HCLL Dispense Status Presumed Transfused_PT HCLL Blood Expiration Date HCLL Coding System EGTE965 HCLL Blood Bank Product Shannan Salas MD BLOOD BANK PRODUCT ORDERABLE S Final Result [facility] * Prepare Cryoprecipitate, 1 Units (10/18/2025 6:15 AM EST) Product Code J4991U90 [facility] Unit Number [id number] HCLL Dispense Status Presumed Transfused_PT HCLL Blood Expiration Date HCLL Coding System YBIB955 [facility] Blood Bank Product Slade Munoz MD BLOOD BANK PRODUCT ORDERABLES Fi nal Result Performing Organization Address [facility] de Phone Number [facility] * Prepare Cryoprecipitate, 1 Units (10/18/2025 6:15 AM EST) Product Code Q2168M02 [facility] Unit Number [id number] HCLL Dispense Status Presumed Transfused_PT HCLL Blood Expiration Date HCLL Coding System BBRP091 HC[facility] Blood Bank Product Slade Munoz MD BLOOD BANK PRODUCT ORDERABLES Fi nal Result Performing Organization Address [facility] Co de Phone Number [facility] * Prepare RBC, leukoreduced (10/18/2025 6:15 AM EST) Product Code F8662O76 [facility] Unit Number [id number] HCLL Dispense Status Released from Crossmatch_RE HCLL Blood Expiration Date HCLL Coding System XNPZ938 HCLL Product Code G1159P96 [facility] Unit Number [id number] HCLL Dispense Status Released from Crossmatch_RE HCLL Blood Expiration Date HCLL Coding System ACCS693 HCLL Product Code A6736P16 [facility] Unit Number [id number] HCLL Dispense Status Released from Crossmatch_RE HCLL Blood Expiration Date HCLL Coding System YVZA906 HCLL Product Code O7566X98 [facility] Unit Number [id number] HCLL Dispense Status Released from Crossmatch_RE HCLL Blood Expiration Date HCLL Coding System FWFC137 HCLL Product Code Q6919T15 [facility] Unit Number [id number] HCLL Dispense Status Presumed Transfused_PT HCLL Blood Expiration Date HCLL Coding System NZAV053 HCLL us Attending Provider Unknown BLOOD BANK PRODUCT OR DERABLES Final Result Performing Organization Address City/[facility]/ZIP Co de Phone Number [facility] * Prepare Fresh Frozen Plasma, 5 Units (10/18/2025 6:15 AM EST) Product Code F8298N06 [facility] Unit Number [id number] HCLL Dispense Status Presumed Transfused_PT HCLL Blood Expiration Date HCLL Coding System MAJS926 HCLL Product Code P6054Z15 [facility] Unit Number [id number] HCLL Dispense Status Presumed Transfused_PT HCLL Blood Expiration Date HCLL Coding System GHZV009 HCLL Product Code B9519L39 [facility] Unit Number [id number] HCLL Dispense Status Presumed Transfused_PT HCLL Blood Expiration Date HCLL Coding System BZGY008 HCLL Product Code F6453W05 [facility] Unit Number [id number] HCLL Dispense Status Presumed Transfused_PT HCLL Blood Expiration Date HCLL Coding System ENPC887 HCLL Product Code C3730W86 [facility] Unit Number [id number] HCLL Dispense Status Presumed Transfused_PT HCLL Blood Expiration Date HCLL Coding System QNHO861 [facility] Blood Bank Product Kassi INTERIANO BLOOD BANK PRODUCT ORDERABLES Final Result [facility] * (ABNORMAL) POC Glucose Monitoring Device (10/18/2025 6:06 AM EST) POC Glucose Monitoring Device 214(H) 70 - 100 mg/dL 10/18/2025 6:06 AM EST [facility] Blood 10/18/2025 6:06 AM EST 10/18/2025 6:06 AM EST us Vani Winkler MD POINT OF CARE TEST ORDERABLE S Final Result [facility] [address] * (ABNORMAL) Blood gas, arterial (10/18/2025 5:19 AM EST) O2 Sat, Arterial 97 10/18/2025 5:28 AM EST [facility] FIO2 40 10/18/2025 5:28 AM [facility] [...] % 10/18/2025 5:28 AM EST [facility] Carboxyhemoglo bin, Arterial 2.5 % 10/18/2025 5:28 AM [facility] Comment: CARBOXYHEMOGLOBIN (CO) REFERENCE RANGES: Non-Smokers: <2 % Smokers: <8 % TOXIC: >20 % Methemoglobin, Arterial 0.5 0.0 - 1.5 % 10/18/2025 5:28 AM EST [facility] Blood, Arterial 10/18/2025 5 :19 AM EST 10/18/2025 5:25 AM EST us Vani Winkler MD LAB BLOOD ORDERABLES Final R esult Performing Organization Address City/[facility]/ZIP Co de Phone Number [facility] [address] * Lactic Acid (10/18/2025 5:02 AM EST) Lactate 1.0 0.5 - 2.2 mmol/L 10/18/2025 5:47 AM EST [facility] Plasma 10/18/2025 5:02 AM EST 10/18/2025 5:09 AM EST us Aspen Parr MD LAB BLOOD ORDERABLES Final Resul t Performing Organization Address City/[facility]/ZIP Co de Phone Number [facility] [address] * Magnesium (10/18/2025 5:02 AM EST) Magnesium 2.0 1.5 - 2.5 mg/dL 10/18/2025 6:05 AM EST [facility] Plasma 10/18/2025 5:02 AM EST 10/18/2025 5:13 AM EST us Aspen Parr MD LAB BLOOD ORDERABLES Final Resul t Performing Organization Address City/[facility] Co de Phone Number [facility] [address] [facility]. [address] * (ABNORMAL) Hepatic Function Panel (10/18/2025 5:02 AM EST) Total Bilirubin 1.5 0.0 - 1.5 mg/dL 10/18/2025 6:05 AM EST [facility] Bilirubin, Direct 0.77(H) 0.00 - 0.40 mg/dL 10/18/2025 6:05 AM [facility] AST 2,612(H) 13 - 39 U/L 10/18/2025 6:05 AM [facility] ALT 1072(H) 7 - [...] ORDERABLES Final Resul t Performing Organization Address City/State/[facility] Co de Phone Number [facility] [address] * (ABNORMAL) Renal Function Panel w/EGFR [...] 7 - 25 mg/dL 10/18/2025 6:05 AM EST [facility] Creatinine 0.93 0.60 - 1.30 mg/dL 10/18/2025 6:05 AM EST [facility] Glucose 193(H) 70 - 100 mg/dL 10/18/2025 6:05 AM EST [facility] Calcium 7.8(L) 8.6 - 10.3 mg/dL 10/18/2025 6:05 AM EST [facility] Phosphorus 3.0 2.1 - 4.7 mg/dL 10/18/2025 6:05 AM EST [facility] Albumin 2.2(L) 3.5 - 5.7 g/dL 10/18/2025 6:05 AM EST [facility] Osmolality, Calculated 311(H) 278 - 305 mOsm/kg 10/18/2025 6:05 AM EST [facility] EGFR >90 10/18/2025 6:05 AM EST [facility] Comment: As of 2022, the [...] BLOOD ORDERABLES Final Resul t [facility] [address] * (ABNORMAL) Protime-INR (10/18/2025 5:02 AM EST) Protime 26.0(H) 12.1 - 15.1 seconds 10/18/2025 5:32 AM EST [facility] INR 2.2(H) 0.9 - 1.1 10/18/2025 5:32 AM EST [facility] Comment: RECOMMENDED THERAPEUTIC RANGES USING INR : Stable oral anticoagulant therapy: 2.0 - 3.0 Mechanical prosthetic heart valve: 2.5 - 3.5 Recurrent acute myocardial infarction: 2.5 - 3.5 Plasma 10/18/2025 5:02 AM EST 10/18/2025 5:13 AM EST us Aspen Parr MD LAB BLOOD ORDERABLES Final Resul t [facility] [address] * (ABNORMAL) CBC (10/18/2025 5:02 AM EST) WBC 7.0 3.8 - 10.8 10E3/uL 10/18/2025 5:27 AM EST [facility] RBC 2.94(L) 4.20 - 5.80 10E6/uL 10/18/2025 5:27 AM EST [facility] Hemoglobin 9.6(L) 13.2 - 17.1 g/dL 10/18/2025 5:27 AM EST [facility] Hematocrit 27.6(L) 38.5 - 50.0 % 10/18/2025 5:27 AM EST [facility] MCV 94.0 80.0 - 100.0 fL 10/18/2025 5:27 AM EST [facility] MCH 32.6 27.0 - 33.0 pg 10/18/2025 5:27 AM EST [facility] MCHC 34.7 32.0 - 36.0 g/dL 10/18/2025 5:27 AM EST [facility] RDW 19.0(H) 11.0 - 15.0 % 10/18/2025 5:27 AM EST [facility] Platelets 36(L) 140 - 400 10E3/uL 10/18/2025 5:27 AM EST [facility] Comment:CNV MPV 8.1 7.5 - 11.5 fL 10/18/2025 5:27 AM EST [facility] Whole Blood 10/18/2025 5:02 AM EST 10/18/2025 5:13 AM EST us Aspen Parr MD LAB BLOOD ORDERABLES Final Resul t [facility] [address] [facility]. [address] * (ABNORMAL) POC Glucose Monitoring Device (10/18/2025 5:00 AM EST) POC Glucose Monitoring Device 231(H) 70 - 100 mg/dL 10/18/2025 5:06 AM EST [facility] Blood 10/18/2025 5:00 AM EST 10/18/2025 5:06 AM EST Vani Winkler MD POINT OF CARE TEST ORDERABLE S Final Result Performing Organization Address City/[facility]/ZIP Co de Phone Number [facility] [address] [facility]. [address] * (ABNORMAL) POC Glucose Monitoring Device (10/18/2025 4:05 AM EST) POC Glucose Monitoring Device 244(H) 70 - 100 mg/dL 10/18/2025 4:06 AM EST [facility] Blood 10/18/2025 4:05 AM EST 10/18/2025 4:06 AM EST Vani Winkler MD POINT OF CARE TEST ORDERABLE S Final Result Performing Organization Address City/[facility]/ZIP Co de Phone Number [facility] [address] * (ABNORMAL) POC Glucose Monitoring Device (10/18/2025 3:02 AM EST) POC Glucose Monitoring Device 246(H) 70 - 100 mg/dL 10/18/2025 3:07 AM EST [facility] Blood 10/18/2025 3:02 AM EST 10/18/2025 3:07 AM EST Vani Winkler MD POINT OF CARE TEST ORDERABLE S Final Result [facility] [address] [facility] * (ABNORMAL) POC Glucose Monitoring Device (10/18/2025 2:05 AM EST) POC Glucose Monitoring Device 249(H) 70 - 100 mg/dL 10/18/2025 2:14 AM EST [facility] Blood 10/18/2025 2:05 AM EST 10/18/2025 2:14 AM EST Vani Winkler MD POINT OF CARE TEST ORDERABLE S Final Result Performing Organization Address City/[facility]/ZIP Co de Phone Number [facility] [address] [facility] * (ABNORMAL) POC Glucose Monitoring Device (10/18/2025 1:06 AM EST) POC Glucose Monitoring Device 237(H) 70 - 100 mg/dL 10/18/2025 1:07 AM EST [facility] Blood 10/18/2025 1:06 AM EST 10/18/2025 1:07 AM EST Vani Winkler MD POINT OF CARE TEST ORDERABLE S Final Result [facility] [address] [facility] * (ABNORMAL) POC Glucose Monitoring Device (10/17/2025 11:55 PM EST) POC Glucose Monitoring Device 227(H) 70 - 100 mg/dL 10/18/2025 12:06 AM EST [facility] Blood 10/17/2025 11:5 5 PM EST 10/18/2025 12:06 AM EST us Vani Winkler MD POINT OF CARE TEST ORDERABLE S Final Result [facility] [address] [place] [address], [facility] * XR Portable Feeding Tube [...] - 5.40 mg/dL 10/17/2025 11:15 PM EST [facility] Comment:Free calcium levels vary inversely with pH by approximately 5% for each 0.1 unit of pH change. Assay results have been normalized to pH = 7.40. Serum 10/17/2025 10:5 0 PM EST 10/17/2025 10:55 PM EST [facility] - 10/17/2025 11:15 PM EST This test has been developed and its performance characteristics determined by [facility] which is certified under the Clinical [...] LAB BLOOD ORDERABLES Final Result [facility] [address] [id number] * (ABNORMAL) TEG-Standard Global Hemostasis (Rapid TEG with Heparin Effect, Contains a Baseline TEG) (10/17/2025 10:50 PM EST) [facility] Citrated Kaolin Reaction Time (TEGHEPARINASE) 12.7(H) 4.6 - 9.1 minutes 10/18/2025 12:03 AM EST [facility] Citrated Rapid Teg Maximum Amplitude (TEGHEPARINASE) 47.8(L) 52.0 - 70.0 mm 10/18/2025 12:03 AM EST [facility] Citrated Functional Fibrinogen Maximum Amplitude (TEGHEPARINASE) 16.8 15.0 - 32.0 mm 10/18/2025 12:03 AM EST [facility] Citrated Kaolin W/Heparinase Reaction Time (TEGHEPARINASE) 11.0(H) 4.3 - 8.3 minutes 10/18/2025 12:03 AM EST [facility] Citrated Kaolin K-Time (TEGHEPARINASE) 4.9(H) 0.8 - 2.1 minutes 10/18/2025 12:03 AM EST [facility] Citrated Kaolin Angle (TEGHEPARINASE) 40.0(L) 63.0 - 78.0 degrees 10/18/2025 12:03 AM EST [facility] Citrated Kaolin Maximum Amplitude (TEGHEPARINASE) 45.2(L) 52.0 - 69.0 mm 10/18/2025 12:03 AM EST [facility] Citrated Functional Fibrinogen- Fibrinogen Level (TEGHEPARINASE) 306.6 278.0 - 581.0 mg/dL 10/18/2025 12:03 AM EST [facility] Whole Blood (Citrate) 10/17/2025 10:50 PM EST 10/17/2025 10:55 PM EST us Aspen Parr MD LAB BLOOD ORDERABLES Final Resul t [facility] [address] [facility] * Lactic Acid (10/17/2025 10:50 PM EST) Lactate 1.1 0.5 - 2.2 mmol/L 10/17/2025 11:51 PM EST [facility] Plasma 10/17/2025 10:5 0 PM EST 10/17/2025 10:55 PM EST Aspen Parr MD LAB BLOOD ORDERABLES Final Resul t [facility] [address] * Fibrinogen (10/17/2025 10:50 PM EST) Fibrinogen 253 218 - 406 mg/dL 10/17/2025 11:06 PM EST [facility] Plasma 10/17/2025 10:5 0 PM EST 10/17/2025 10:55 PM EST sApen Parr MD LAB BLOOD ORDERABLES Final Resul t Performing Organization Address City/[facility]/ZIP Co de Phone Number [facility] [address] [facility]. [address] * (ABNORMAL) Protime-INR (10/17/2025 10:50 PM EST) Protime 25.2(H) 12.1 - 15.1 seconds 10/17/2025 11:06 PM EST [facility] INR 2.1(H) 0.9 - 1.1 10/17/2025 11:06 PM EST [facility] Comment: RECOMMENDED THERAPEUTIC RANGES USING INR : Stable oral anticoagulant therapy: 2.0 - 3.0 Mechanical prosthetic heart valve: 2.5 - 3.5 Recurrent acute myocardial infarction: 2.5 - 3.5 Plasma 10/17/2025 10:5 0 PM EST 10/17/2025 10:55 PM EST Aspen Parr MD LAB BLOOD ORDERABLES Final Resul t Performing Organization Address City/[facility]/ZIP Co de Phone Number [facility] [address] [place] [address], [facility] * (ABNORMAL) Blood gas, arterial (10/17/2025 10:50 PM EST) O2 Sat, Arterial 100 10/17/2025 11:00 PM EST [facility] FIO2 80 fio2 10/17/2025 11:00 PM EST [facility] pH, Arterial 7.38 7.35 - 7.45 10/17/2025 11:00 PM EST [facility] pCO2, Arterial 41 35 - 45 mm Hg 10/17/2025 11:00 PM EST [facility] pO2, Arterial 216(H) 80 - 100 mm Hg 10/17/2025 11:00 PM EST [facility] HCO3, Arterial 24 22 - 26 mmol/L 10/17/2025 11:00 PM EST [facility] CO2 Content,Arteri al 26 23 - 27 mmol/L 10/17/2025 11:00 PM EST [facility] Base Excess, Arterial -0.8 -2.0 - 3.0 mmol/L 10/17/2025 11:00 PM EST [facility] %HBO2, Arterial 95.2 95.0 - 98.0 % 10/17/2025 11:00 PM EST [facility] Carboxyhemoglo bin, Arterial 3.3 % 10/17/2025 11:00 PM EST [facility] Comment: CARBOXYHEMOGLOBIN (CO) REFERENCE RANGES: Non-Smokers: <2 % Smokers: <8 % TOXIC: >20 % Methemoglobin, Arterial 1.6(H) 0.0 - 1.5 % 10/17/2025 11:00 PM EST [facility] Blood, Arterial 10/17/2025 1 0:50 PM EST 10/17/2025 10:55 PM EST Aspen Parr MD LAB BLOOD ORDERABLES Final Resul t Performing Organization Address City/[facility]/ZIP Co de Phone Number [facility] [address] [place] [address], [facility] * Magnesium (10/17/2025 10:50 PM EST) Magnesium 1.8 1.5 - 2.5 mg/dL 10/18/2025 12:13 AM EST [facility] Plasma 10/17/2025 10:5 0 PM EST 10/17/2025 10:55 PM EST us Aspen Parr MD LAB BLOOD ORDERABLES Final Resul t Performing Organization Address [facility]/ZIP Co de Phone Number [facility] [address] [facility] * (ABNORMAL) Hepatic Function Panel (10/17/2025 10:50 PM EST) Total Bilirubin 4.5(H) 0.0 - 1.5 mg/dL 10/18/2025 12:13 AM EST [facility] Bilirubin, Direct 3.22(H) 0.00 - 0.40 mg/dL 10/18/2025 12:13 AM EST [facility] AST 3,332(H) 13 - 39 U/L 10/18/2025 12:13 AM EST [facility] ALT 1141(H) 7 - 52 U/L 10/18/2025 12:13 AM EST [facility] Alkaline Phosphatase 63 36 - 125 U/L 10/18/2025 12:13 AM EST [facility] Total Protein 4.0(L) 6.4 - 8.9 g/dL 10/18/2025 12:13 AM EST [facility] Albumin 2.2(L) 3.5 - 5.7 g/dL 10/18/2025 12:13 AM EST [facility] Bilirubin, Indirect 1.28(H) 0.00 - 1.10 mg/dL 10/18/2025 12:13 AM EST [facility] Plasma 10/17/2025 10:5 0 PM EST 10/17/2025 10:55 PM EST us Aspen Parr MD LAB BLOOD ORDERABLES Final Resul t [facility] [address] [facility]. [address] * (ABNORMAL) Renal Function Panel w/EGFR [...] BLOOD ORDERABLES Final Resul t [facility] [address] * (ABNORMAL) CBC (10/17/2025 10:50 PM EST) WBC 5.8 3.8 - 10.8 10E3/uL 10/17/2025 11:03 PM EST [facility] RBC 2.93(L) 4.20 - 5.80 10E6/uL 10/17/2025 11:03 PM EST [facility] Hemoglobin 9.5(L) 13.2 - 17.1 g/dL 10/17/2025 11:03 PM EST [facility] Hematocrit 27.5(L) 38.5 - 50.0 % 10/17/2025 11:03 PM EST [facility] MCV 93.9 80.0 - 100.0 fL 10/17/2025 11:03 PM EST [facility] MCH 32.6 27.0 - 33.0 pg 10/17/2025 11:03 PM EST [facility] MCHC 34.7 32.0 - 36.0 g/dL 10/17/2025 11:03 PM EST [facility] RDW 18.1(H) 11.0 - 15.0 % 10/17/2025 11:03 PM EST [facility] Platelets 52(L) 140 - 400 10E3/uL 10/17/2025 11:03 PM EST [facility] MPV 7.1(L) 7.5 - 11.5 fL 10/17/2025 11:03 PM EST [facility] Whole Blood 10/17/2025 10:5 0 PM EST 10/17/2025 10:55 PM EST us Aspen Parr MD LAB BLOOD ORDERABLES Final Resul t [facility] [address] [facility]. [address] * (ABNORMAL) POC Glucose Monitoring Device (10/17/2025 10:47 PM EST) POC Glucose Monitoring Device 234(H) 70 - 100 mg/dL 10/17/2025 10:48 PM EST [facility] Blood 10/17/2025 10:4 7 PM EST 10/17/2025 10:47 PM EST Vani Winkler MD POINT OF CARE TEST ORDERABLE S Final Result Performing Organization Address City/[facility]/ZIP Co de Phone Number [facility] [address] [facility]. [address] * POC Sample Type (10/17/2025 9:25 PM EST) POC Sample Type Arterial 10/17/2025 9:51 PM EST [facility] Blood, Arterial 10/17/2025 9 :25 PM EST 10/17/2025 9:51 PM EST Vani Winkler MD POINT OF CARE TEST ORDERABLE S Final Result Performing Organization Address City/[facility]/ZIP Co de Phone Number [facility] [address] [facility]. [address] * POC Anion Gap (10/17/2025 9:25 PM EST) POC Anion Gap, Arterial 9 3 - 16 mmol/L 10/17/2025 9:51 PM EST [facility] Blood, Arterial 10/17/2025 9 :25 PM EST 10/17/2025 9:51 PM EST Vani Winkler MD POINT OF CARE TEST ORDERABLE S Final Result [facility] [address] [facility]. [address] * (ABNORMAL) POC Chloride (10/17/2025 9:25 PM EST) POC Chloride 111(H) 98 - 110 mmol/L 10/17/2025 9:51 PM EST [facility] Blood, Arterial 10/17/2025 9 :25 PM EST 10/17/2025 9:51 PM EST Vani Winkler MD POINT OF CARE TEST ORDERABLE S Final Result Performing Organization Address City/[facility]/ZIP Co de Phone Number [facility] [address] * (ABNORMAL) POC Hemoglobin (10/17/2025 9:25 PM EST) POC Hemoglobin 9.0(L) 14.0 - 18.0 g/dL 10/17/2025 9:51 PM EST [facility] Blood, Arterial 10/17/2025 9 :25 PM EST 10/17/2025 9:51 PM EST Vani Winkler MD POINT OF CARE TEST ORDERABLE S Final Result [facility] [address] [facility]. [address] * (ABNORMAL) POC hematocrit (10/17/2025 9:25 PM EST) POC Hematocrit 26.0(L) 40 - 52 % 10/17/2025 9:51 PM EST [facility] Blood, Arterial 10/17/2025 9 :25 PM EST 10/17/2025 9:51 PM EST Vani Winkler MD POINT OF CARE TEST ORDERABLE S Final Result [facility] [address] [facility]. [address] * POC Lactate (10/17/2025 9:25 PM EST) POC Lactate 1.50 0.50 - 2.20 mmol/L 10/17/2025 9:51 PM EST [facility] Blood, Arterial 10/17/2025 9 :25 PM EST 10/17/2025 9:51 PM EST Vani Winkler MD POINT OF CARE TEST ORDERABLE S Final Result Performing Organization Address City/[facility]/ZIP Co de Phone Number [facility] [address] [facility]. [address] * (ABNORMAL) POC Glucose (10/17/2025 9:25 PM EST) Pathologist [facility] POC Glucose, Arterial 227(H) 70 - 100 mg/dL 10/17/2025 9:51 PM EST [facility] Blood, Arterial 10/17/2025 9 :25 PM EST 10/17/2025 9:51 PM EST Vani Winkler MD POINT OF CARE TEST ORDERABLE S Final Result [facility] [address] [facility]. [address] * POC Ionized Calcium (10/17/2025 9:25 PM EST) POC Ionized Calcium 4.90 4.50 - 5.30 mg/dL 10/17/2025 9:51 PM EST [facility] Blood, Arterial 10/17/2025 9 :25 PM EST 10/17/2025 9:51 PM EST us Vani Winkler MD POINT OF CARE TEST ORDERABLE S Final Result [facility] [address] [facility]. [address] * POC Potassium (10/17/2025 9:25 PM EST) POC Potassium 3.7 3.5 - 5.3 mmol/L 10/17/2025 9:51 PM EST [facility] Blood, Arterial 10/17/2025 9 :25 PM EST 10/17/2025 9:51 PM EST us Vani Winkler MD POINT OF CARE TEST ORDERABLE S Final Result [facility] [address] [facility]. [address] * POC Sodium (10/17/2025 9:25 PM EST) POC Sodium 142 136 - 146 mmol/L 10/17/2025 9:51 PM EST [facility] Blood, Arterial 10/17/2025 9 :25 PM EST 10/17/2025 9:51 PM EST us Vani Winkler MD POINT OF CARE TEST ORDERABLE S Final Result [facility] [address] [facility]. [address] * POC TCO2 (10/17/2025 9:25 PM EST) POC TCO2, Arterial 23 23 - 27 mmol/L 10/17/2025 9:51 PM EST [facility] Blood, Arterial 10/17/2025 9 :25 PM EST 10/17/2025 9:51 PM EST us Vani Winkler MD POINT OF CARE TEST ORDERABLE S Final Result [facility] [address] * (ABNORMAL) POC O2 SAT (10/17/2025 9:25 PM EST) POC O2 Saturation, Arterial 99(H) 95 - 98 % 10/17/2025 9:51 PM EST [facility] Blood, Arterial 10/17/2025 9 :25 PM EST 10/17/2025 9:51 PM EST Vani Winkler MD POINT OF CARE TEST ORDERABLE S Final Result [facility] [address] * (ABNORMAL) POC Base Excess (10/17/2025 9:25 PM EST) POC Base Excess, Arterial -3(L) -2 - 3 mmol/L 10/17/2025 9:51 PM EST [facility] Blood, Arterial 10/17/2025 9 :25 PM EST 10/17/2025 9:51 PM EST Vani Winkler MD POINT OF CARE TEST ORDERABLE S Final Result [facility] [address] * POC HCO3 (10/17/2025 9:25 PM EST) POC HCO3, Arterial 22 22 - 26 mmol/L 10/17/2025 9:51 PM EST [facility] Blood, Arterial 10/17/2025 9 :25 PM EST 10/17/2025 9:51 PM EST Vani Winkler MD POINT OF CARE TEST ORDERABLE S Final Result [facility] [address] * (ABNORMAL) POC PO2 (10/17/2025 9:25 PM EST) POC pO2, Arterial 161(H) 80 - 100 mm Hg 10/17/2025 9:51 PM EST [facility] Blood, Arterial 10/17/2025 9 :25 PM EST 10/17/2025 9:51 PM EST Vani Winkler MD POINT OF CARE TEST ORDERABLE S Final Result [facility] [address] [facility]. [address] * POC PCO2 (10/17/2025 9:25 PM EST) POC pCO2, Arterial 38 35 - 45 mm Hg 10/17/2025 9:51 PM EST [facility] Blood, Arterial 10/17/2025 9 :25 PM EST 10/17/2025 9:51 PM EST Vani Winkler MD POINT OF CARE TEST ORDERABLE S Final Result [facility] [address] [facility]. [address] * POC pH (10/17/2025 9:25 PM EST) POC pH, Arterial 7.37 7.35 - 7.45 10/17/2025 9:51 PM EST [facility] Blood, Arterial 10/17/2025 9 :25 PM EST 10/17/2025 9:51 PM EST Vani Winkler MD POINT OF CARE TEST ORDERABLE S Final Result [facility] [address] [facility]. [address] * (ABNORMAL) POC INR (10/17/2025 9:24 PM EST) Prothrombin Time INR, POC 2.3(H) 0.8 - 1.4 10/18/2025 12:08 AM EST [facility] Comment: Test results may vary using different testing platforms. Serial result monitoring should be performed using the same methodology. RECOMMENDED THERAPEUTIC RANGES USING INR : Stable oral anticoagulant therapy: 2.0 - 3.0 Mechanical prosthetic heart valve: 2.5 - 3.5 Recurrent acute myocardial infarction: 2.5 - 3.5 Blood 10/17/2025 9:24 PM EST 10/18/2025 12:07 AM EST Result [facility] Vani Winkler MD POINT OF CARE TEST ORDERABLE S Final Result [facility] [address] [id number], [facility] * Transfuse Fresh Frozen Plasma (10/17/2025 9:17 PM EST) Result [facility] Shannan Salas MD NURSING TREATMENT ORDERABLES - BLOOD ADMIN Final Result * Transfuse Platelets (10/17/2025 9:01 PM EST) Result [facility] Slade Munoz MD NURSING TREATMENT ORDERABLES - B LOOD ADMIN Final Result * Transfuse Cryoprecipitate (10/17/2025 8:49 PM EST) Result [facility] Slade Munoz MD NURSING TREATMENT ORDERABLES - B LOOD ADMIN Final Result * Transfuse Cryoprecipitate (10/17/2025 8:46 PM EST) Result [facility] Slade Munoz MD NURSING TREATMENT ORDERABLES - B LOOD ADMIN Final Result * (ABNORMAL) TEG-Bypass/ECMO/Liver HN (Factor function, Platelet/Fibrin Clot Strength w/Clot Breakdown, Heparinase In All Channels) (10/17/2025 8:31 PM EST) [facility] Citrated Kaolin Reaction Time (TEGECMOLIVER) 9.7(H) 4.6 - 9.1 minutes 10/17/2025 10:13 PM EST [facility] Citrated Kaolin W/Heparinase Reaction Time (TEGECMOLIVER) 3.4(L) 4.3 - 8.3 minutes 10/17/2025 10:13 PM EST [facility] Citrated Kaolin Maximum Amplitude (TEGECMOLIVER) 45.4(L) 52.0 - 69.0 mm 10/17/2025 10:13 PM EST [facility] Citrated Functional Fibrinogen W/Heparinase Maximum Amplitude(TEGEC MOLIVER) 18.0 15.0 - 34.0 mm 10/17/2025 10:13 PM EST [facility] Citrated Rapid Teg W/Heparinase Maximum Amplitude (TEGECMOLIVER) 40.5(L) 53.0 - 69.0 mm 10/17/2025 10:13 PM EST [facility] Citrated Kaolin w/Heparinase Percent Lysis (TEGECMOLIVER) 0.0 0.0 - 3.2 % 10/17/2025 10:13 PM EST [facility] Whole Blood (Citrate) 10/17/2025 8:31 PM EST 10/17/2025 8:40 PM EST Oskar Torres MD LAB BLOOD ORDERABLES Final Re sult Performing Organization Address City/[facility]/ZIP Co de Phone Number [facility] [address] * (ABNORMAL) Fibrinogen (10/17/2025 8:31 PM EST) [facility] Fibrinogen 157(L) 218 - 406 mg/dL 10/17/2025 9:00 PM EST [facility] Plasma 10/17/2025 8:31 PM EST 10/17/2025 8:40 PM EST Oskar Torres MD LAB BLOOD ORDERABLES Final Re sult Performing Organization Address City/[facility]/ZIP Co de Phone Number [facility] [address] * POC Sample Type (10/17/2025 8:22 PM EST) Pathologist [facility] POC Sample Type Arterial 10/17/2025 8:24 PM EST [facility] Blood, Arterial 10/17/2025 8 :22 PM EST 10/17/2025 8:24 PM EST Vani Winlker MD POINT OF CARE TEST ORDERABLE S Final Result [facility] [address]. [address] * POC Anion Gap (10/17/2025 8:22 PM EST) POC Anion Gap, Arterial 11 3 - 16 mmol/L 10/17/2025 8:24 PM EST [facility] Blood, Arterial 10/17/2025 8 :22 PM EST 10/17/2025 8:24 PM EST Vani Winkler MD POINT OF CARE TEST ORDERABLE S Final Result Performing Organization Address [facility] Co de Phone Number [facility] [address] [facility]. [address] * POC Chloride (10/17/2025 8:22 PM EST) POC Chloride 108 98 - 110 mmol/L 10/17/2025 8:24 PM EST [facility] Blood, Arterial 10/17/2025 8 :22 PM EST 10/17/2025 8:24 PM EST Vani Winkler MD POINT OF CARE TEST ORDERABLE S Final Result Performing Organization Address City/[facility] Co de Phone Number [facility] [address] [place] [address]. [address] * (ABNORMAL) POC Hemoglobin (10/17/2025 8:22 PM EST) POC Hemoglobin 9.5(L) 14.0 - 18.0 g/dL 10/17/2025 8:24 PM EST [facility] Blood, Arterial 10/17/2025 8 :22 PM EST 10/17/2025 8:24 PM EST Vani Winkler MD POINT OF CARE TEST ORDERABLE S Final Result [facility] [address] * (ABNORMAL) POC hematocrit (10/17/2025 8:22 PM EST) POC Hematocrit 28.0(L) 40 - 52 % 10/17/2025 8:24 PM EST [facility] Blood, Arterial 10/17/2025 8 :22 PM EST 10/17/2025 8:24 PM EST Vani Winkler MD POINT OF CARE TEST ORDERABLE S Final Result Performing Organization Address City/[facility]/ZIP Co de Phone Number [facility] [address] [facility]. [address] * POC Lactate (10/17/2025 8:22 PM EST) POC Lactate 1.62 0.50 - 2.20 mmol/L 10/17/2025 8:24 PM EST [facility] Blood, Arterial 10/17/2025 8 :22 PM EST 10/17/2025 8:24 PM EST Vani Winkler MD POINT OF CARE TEST ORDERABLE S Final Result Performing Organization Address [facility]/ZIP Co de Phone Number [facility] [address] [facility]. [address] * (ABNORMAL) POC Glucose (10/17/2025 8:22 PM EST) POC Glucose, Arterial 218(H) 70 - 100 mg/dL 10/17/2025 8:24 PM EST [facility] Blood, Arterial 10/17/2025 8 :22 PM EST 10/17/2025 8:24 PM EST Vani Winkler MD POINT OF CARE TEST ORDERABLE S Final Result Performing Organization Address City/[facility]/ZIP Co de Phone Number [facility] [address] [facility]. [address] * POC Ionized Calcium (10/17/2025 8:22 PM EST) POC Ionized Calcium 4.80 4.50 - 5.30 mg/dL 10/17/2025 8:24 PM EST [facility] Blood, Arterial 10/17/2025 8 :22 PM EST 10/17/2025 8:24 PM EST Vani Winkler MD POINT OF CARE TEST ORDERABLE S Final Result [facility] [address] [place] [address]. [address] * POC Potassium (10/17/2025 8:22 PM EST) Pathologist [facility] POC Potassium 3.8 3.5 - 5.3 mmol/L 10/17/2025 8:24 PM EST [facility] Blood, Arterial 10/17/2025 8 :22 PM EST 10/17/2025 8:24 PM EST Vani Winkler MD POINT OF CARE TEST ORDERABLE S Final Result Performing Organization Address City/[facility]/ZIP Co de Phone Number [facility] [address] [place] [address]. [address] * POC Sodium (10/17/2025 8:22 PM EST) Pathologist [facility] POC Sodium 143 136 - 146 mmol/L 10/17/2025 8:24 PM EST [facility] Blood, Arterial 10/17/2025 8 :22 PM EST 10/17/2025 8:24 PM EST Vani Winkler MD POINT OF CARE TEST ORDERABLE S Final Result Performing Organization Address City/[facility]/ZIP Co de Phone Number [facility] [address] [place] [address]. [address] * POC TCO2 (10/17/2025 8:22 PM EST) POC TCO2, Arterial 25 23 - 27 mmol/L 10/17/2025 8:24 PM EST [facility] Blood, Arterial 10/17/2025 8 :22 PM EST 10/17/2025 8:24 PM EST Vani Winkler MD POINT OF CARE TEST ORDERABLE S Final Result [facility] [address] * (ABNORMAL) POC O2 SAT (10/17/2025 8:22 PM EST) POC O2 Saturation, Arterial 99(H) 95 - 98 % 10/17/2025 8:24 PM EST [facility] Blood, Arterial 10/17/2025 8 :22 PM EST 10/17/2025 8:24 PM EST Vani Winkler MD POINT OF CARE TEST ORDERABLE S Final Result [facility] [address] [facility]. [address] * POC Base Excess (10/17/2025 8:22 PM EST) POC Base Excess, Arterial -1 -2 - 3 mmol/L 10/17/2025 8:24 PM EST [facility] Blood, Arterial 10/17/2025 8 :22 PM EST 10/17/2025 8:24 PM EST Vani Winkler MD POINT OF CARE TEST ORDERABLE S Final Result [facility] [address] [facility]. [address] * POC HCO3 (10/17/2025 8:22 PM EST) POC HCO3, Arterial 24 22 - 26 mmol/L 10/17/2025 8:24 PM EST [facility] Blood, Arterial 10/17/2025 8 :22 PM EST 10/17/2025 8:24 PM EST Vani Winkler MD POINT OF CARE TEST ORDERABLE S Final Result Performing Organization Address City/[facility]/ZIP Co de Phone Number [facility] [address] [facility]. [address] * (ABNORMAL) POC PO2 (10/17/2025 8:22 PM EST) POC pO2, Arterial 131(H) 80 - 100 mm Hg 10/17/2025 8:24 PM EST [facility] Blood, Arterial 10/17/2025 8 :22 PM EST 10/17/2025 8:24 PM EST us Vani Winkler MD POINT OF CARE TEST ORDERABLE S Final Result Performing Organization Address City/[facility] Co de Phone Number [facility] [address] [facility]. [address] * POC PCO2 (10/17/2025 8:22 PM EST) POC pCO2, Arterial 41 35 - 45 mm Hg 10/17/2025 8:24 PM EST [facility] Blood, Arterial 10/17/2025 8 :22 PM EST 10/17/2025 8:24 PM EST Vani Winkler MD POINT OF CARE TEST ORDERABLE S Final Result [facility] [address] [facility]. [address] * POC pH (10/17/2025 8:22 PM EST) POC pH, Arterial 7.37 7.35 - 7.45 10/17/2025 8:24 PM EST [facility] Blood, Arterial 10/17/2025 8 :22 PM EST 10/17/2025 8:24 PM EST us Vani Winkler MD POINT OF CARE TEST ORDERABLE S Final Result Performing Organization Address [facility] Co de Phone Number [facility] [address] * (ABNORMAL) POC INR (10/17/2025 8:21 PM EST) Prothrombin Time INR, POC 2.9(H) 0.8 - 1.4 10/18/2025 12:08 AM EST [facility] Comment: Test results may vary [...] ORDERABLE S Final Result Performing Organization Address [facility] Co de Phone Number [facility] [address] * Transfuse Fresh Frozen Plasma (10/17/2025 [...] Arterial 10/17/2025 7:30 PM EST [facility] Blood, Arterial 10/17/2025 7 :26 PM EST 10/17/2025 7:30 PM EST Vani Winkler MD POINT OF CARE TEST ORDERABLE S Final Result Performing Organization Address City/[facility]/ZIP Co de Phone Number [facility] [address] [facility] * POC Anion Gap (10/17/2025 7:26 PM EST) POC Anion Gap, Arterial 11 3 - 16 mmol/L 10/17/2025 7:30 PM EST [facility] Blood, Arterial 10/17/2025 7 :26 PM EST 10/17/2025 7:30 PM EST Vani Winkler MD POINT OF CARE TEST ORDERABLE S Final Result Performing Organization Address City/[facility]/ZIP Co de Phone Number [facility] [address] [facility] * POC Chloride (10/17/2025 7:26 PM EST) Pathologist [facility] POC Chloride 109 98 - 110 mmol/L 10/17/2025 7:30 PM EST [facility] Blood, Arterial 10/17/2025 7 :26 PM EST 10/17/2025 7:30 PM EST Vani Winkler MD POINT OF CARE TEST ORDERABLE S Final Result [facility] [address] [facility] * (ABNORMAL) POC Hemoglobin (10/17/2025 7:26 PM EST) POC Hemoglobin 8.6(L) 14.0 - 18.0 g/dL 10/17/2025 7:30 PM EST [facility] Blood, Arterial 10/17/2025 7 :26 PM EST 10/17/2025 7:30 PM EST Vani Winkler MD POINT OF CARE TEST ORDERABLE S Final Result [facility] [address] [facility]. [address] * (ABNORMAL) POC hematocrit (10/17/2025 7:26 PM EST) POC Hematocrit 25.0(L) 40 - 52 % 10/17/2025 7:30 PM EST [facility] Blood, Arterial 10/17/2025 7 :26 PM EST 10/17/2025 7:30 PM EST Vani Winkler MD POINT OF CARE TEST ORDERABLE S Final Result Performing Organization Address [facility] Co de Phone Number [facility] [address] [facility]. [address] * POC Lactate (10/17/2025 7:26 PM EST) POC Lactate 2.16 0.50 - 2.20 mmol/L 10/17/2025 7:30 PM EST [facility] Blood, Arterial 10/17/2025 7 :26 PM EST 10/17/2025 7:30 PM EST Vani Winkler MD POINT OF CARE TEST ORDERABLE S Final Result Performing Organization Address City/[facility]/ZIP Co de Phone Number [facility] [address] [facility]. [address] * (ABNORMAL) POC Glucose (10/17/2025 7:26 PM EST) POC Glucose, Arterial 207(H) 70 - 100 mg/dL 10/17/2025 7:30 PM EST [facility] Blood, Arterial 10/17/2025 7 :26 PM EST 10/17/2025 7:30 PM EST Vani Winkler MD POINT OF CARE TEST ORDERABLE S Final Result [facility] [address] * (ABNORMAL) POC Ionized Calcium (10/17/2025 7:26 PM EST) POC Ionized Calcium 5.40(H) 4.50 - 5.30 mg/dL 10/17/2025 7:30 PM EST [facility] Blood, Arterial 10/17/2025 7 :26 PM EST 10/17/2025 7:30 PM EST Vani Winkler MD POINT OF CARE TEST ORDERABLE S Final Result Performing Organization Address City/[facility]/ZIP Co de Phone Number [facility] [address] * POC Potassium (10/17/2025 7:26 PM EST) POC Potassium 3.9 3.5 - 5.3 mmol/L 10/17/2025 7:30 PM EST [facility] Blood, Arterial 10/17/2025 7 :26 PM EST 10/17/2025 7:30 PM EST Vani Winkler MD POINT OF CARE TEST ORDERABLE S Final Result Performing Organization Address City/[facility]/ZIP Co de Phone Number [facility] [address] * POC Sodium (10/17/2025 7:26 PM EST) POC Sodium 143 136 - 146 mmol/L 10/17/2025 7:30 PM EST [facility] Blood, Arterial 10/17/2025 7 :26 PM EST 10/17/2025 7:30 PM EST Vani Winkler MD POINT OF CARE TEST ORDERABLE S Final Result [facility] [address] * POC TCO2 (10/17/2025 7:26 PM EST) POC TCO2, Arterial 24 23 - 27 mmol/L 10/17/2025 7:30 PM EST [facility] Blood, Arterial 10/17/2025 7 :26 PM EST 10/17/2025 7:30 PM EST Vani Winkler MD POINT OF CARE TEST ORDERABLE S Final Result [facility] [address] [facility] * (ABNORMAL) POC O2 SAT (10/17/2025 7:26 PM EST) POC O2 Saturation, Arterial 99(H) 95 - 98 % 10/17/2025 7:30 PM EST [facility] Blood, Arterial 10/17/2025 7 :26 PM EST 10/17/2025 7:30 PM EST Vani Winkler MD POINT OF CARE TEST ORDERABLE S Final Result [facility] [address] [facility]. [address] * POC Base Excess (10/17/2025 7:26 PM EST) POC Base Excess, Arterial -2 -2 - 3 mmol/L 10/17/2025 7:30 PM EST [facility] Blood, Arterial 10/17/2025 7 :26 PM EST 10/17/2025 7:30 PM EST Vani Winkler MD POINT OF CARE TEST ORDERABLE S Final Result [facility] [address] [facility] * POC HCO3 (10/17/2025 7:26 PM EST) POC HCO3, Arterial 23 22 - 26 mmol/L 10/17/2025 7:30 PM EST [facility] Blood, Arterial 10/17/2025 7 :26 PM EST 10/17/2025 7:30 PM EST Vani Winkler MD POINT OF CARE TEST ORDERABLE S Final Result [facility] [address] [facility] * (ABNORMAL) POC PO2 (10/17/2025 7:26 PM EST) POC pO2, Arterial 156(H) 80 - 100 mm Hg 10/17/2025 7:30 PM EST [facility] Blood, Arterial 10/17/2025 7 :26 PM EST 10/17/2025 7:30 PM EST Vani Winkler MD POINT OF CARE TEST ORDERABLE S Final Result [facility] [address] [facility] * POC PCO2 (10/17/2025 7:26 PM EST) POC pCO2, Arterial 40 35 - 45 mm Hg 10/17/2025 7:30 PM EST [facility] Blood, Arterial 10/17/2025 7 :26 PM EST 10/17/2025 7:30 PM EST Vani Winkler MD POINT OF CARE TEST ORDERABLE S Final Result [facility] [address] [facility]. [address] * POC pH (10/17/2025 7:26 PM EST) POC pH, Arterial 7.37 7.35 - 7.45 10/17/2025 7:30 PM EST [facility] Blood, Arterial 10/17/2025 7 :26 PM EST 10/17/2025 7:30 PM EST Vani Winkler MD POINT OF CARE TEST ORDERABLE S Final Result Performing Organization Address [facility] Co de Phone Number [facility] [address] [facility] * (ABNORMAL) POC INR (10/17/2025 7:25 PM EST) Prothrombin Time INR, POC 5.9(HH) 0.8 - 1.4 10/18/2025 12:07 AM EST [facility] Comment: Test results may vary [...] ORDERABLE S Final Result Performing Organization Address City/[facility] Co de Phone Number [facility] [address] * Transfuse Platelets (10/17/2025 7:03 PM EST) Slade Munoz MD NURSING TREATMENT ORDERABLES - B LOOD ADMIN Final Result * (ABNORMAL) TEG-Bypass/ECMO/Liver HN (Factor function, Platelet/Fibrin Clot Strength w/Clot Breakdown, Heparinase In All Channels) (10/17/2025 6:39 PM EST) Citrated Kaolin Reaction Time (TEGECMOLIVER) 7.1 4.6 - 9.1 minutes 10/17/2025 8:07 PM EST [facility] Citrated Kaolin W/Heparinase Reaction Time (TEGECMOLIVER) 2.5(L) 4.3 - 8.3 minutes 10/17/2025 8:07 PM EST [facility] Citrated Kaolin Maximum Amplitude (TEGECMOLIVER) 41.6(L) 52.0 - 69.0 mm 10/17/2025 8:07 PM EST [facility] Citrated Functional Fibrinogen W/Heparinase Maximum Amplitude(TEGEC MOLIVER) 20.9 15.0 - 34.0 mm 10/17/2025 8:07 PM EST [facility] Citrated Rapid Teg W/Heparinase Maximum Amplitude (TEGECMOLIVER) 30.9(L) 53.0 - 69.0 mm 10/17/2025 8:07 PM EST [facility] Citrated Kaolin w/Heparinase Percent Lysis (TEGECMOLIVER) 0.0 0.0 - 3.2 % 10/17/2025 8:07 PM [facility] Whole Blood (Citrate) 10/17/2025 6:39 PM EST 10/17/2025 6:45 PM EST us Shannan Salas MD LAB BLOOD ORDERABLES Final R esult [facility] [address] * (ABNORMAL) CBC (10/17/2025 6:39 PM EST) WBC 4.8 3.8 - 10.8 10E3/uL 10/17/2025 6:54 PM EST [facility] RBC 3.19(L) 4.20 - 5.80 10E6/uL [...] % 10/17/2025 6:54 PM EST [facility] Platelets 47(L) 140 - 400 10E3/uL 10/17/2025 6:54 PM EST [facility] Comment:CNV MPV 7.7 7.5 - 11.5 fL 10/17/2025 6:54 PM EST [facility] Whole Blood 10/17/2025 6:39 PM EST 10/17/2025 6:45 PM EST Shannan Salas MD LAB BLOOD ORDERABLES Final R esult [facility] [address] * (ABNORMAL) Protime-INR (10/17/2025 6:39 PM EST) Protime 69.5(HH) 12.1 - 15.1 seconds 10/17/2025 7:30 PM EST [facility] Comment:The critical result was called to, and read back by, licensed caregiver ROSALIND HAWK RN, AT 1930 INR 7.5(HH) 0.9 - 1.1 10/17/2025 7:30 PM EST [facility] Comment: RECOMMENDED THERAPEUTIC RANGES USING [...] BLOOD ORDERABLES Final R esult [facility] [address] * (ABNORMAL) Fibrinogen (10/17/2025 6:39 PM EST) Fibrinogen 159(L) 218 - 406 mg/dL 10/17/2025 7:04 PM EST [facility] Plasma 10/17/2025 6:39 PM EST 10/17/2025 6:45 PM EST Shannan Salas MD LAB BLOOD ORDERABLES Final R esult [facility] [address] [facility]. [address] * Transfuse Cryoprecipitate (10/17/2025 6:31 PM EST) Slade Munoz MD NURSING TREATMENT ORDERABLES - B LOOD ADMIN Final Result * POC Sample Type (10/17/2025 6:23 PM EST) POC Sample Type Arterial 10/17/2025 6:25 PM EST [facility] Blood, Arterial 10/17/2025 6 :23 PM EST 10/17/2025 6:25 PM EST Vani Winkler MD POINT OF CARE TEST ORDERABLE S Final Result Performing Organization Address City/[facility]/ZIP Co de Phone Number [facility] [address] [facility]. [address] * POC Anion Gap (10/17/2025 6:23 PM EST) POC Anion Gap, Arterial 13 3 - 16 mmol/L 10/17/2025 6:25 PM EST [facility] Blood, Arterial 10/17/2025 6 :23 PM EST 10/17/2025 6:25 PM EST us Vani Winkler MD POINT OF CARE TEST ORDERABLE S Final Result [facility] [address] * POC Chloride (10/17/2025 6:23 PM EST) POC Chloride 110 98 - 110 mmol/L 10/17/2025 6:25 PM EST [facility] Blood, Arterial 10/17/2025 6 :23 PM EST 10/17/2025 6:25 PM EST Vani Winkler MD POINT OF CARE TEST ORDERABLE S Final Result [facility] [address] * (ABNORMAL) POC Hemoglobin (10/17/2025 6:23 PM EST) POC Hemoglobin 9.8(L) 14.0 - 18.0 g/dL 10/17/2025 6:25 PM EST [facility] Blood, Arterial 10/17/2025 6 :23 PM EST 10/17/2025 6:25 PM EST Vani Winkler MD POINT OF CARE TEST ORDERABLE S Final Result Performing Organization Address City/[facility]/ZIP Co de Phone Number [facility] [address] [facility]. [address] * (ABNORMAL) POC hematocrit (10/17/2025 6:23 PM EST) Pathologist [facility] POC Hematocrit 29.0(L) 40 - 52 % 10/17/2025 6:25 PM EST [facility] Blood, Arterial 10/17/2025 6 :23 PM EST 10/17/2025 6:25 PM EST Vani Winkler MD POINT OF CARE TEST ORDERABLE S Final Result [facility] [address] [facility]. [address] * (ABNORMAL) POC Lactate (10/17/2025 6:23 PM EST) POC Lactate 3.26(H) 0.50 - 2.20 mmol/L 10/17/2025 6:25 PM EST [facility] Blood, Arterial 10/17/2025 6 :23 PM EST 10/17/2025 6:25 PM EST Vani Winkler MD POINT OF CARE TEST ORDERABLE S Final Result Performing Organization Address City/[facility]/ZIP Co de Phone Number [facility] [address] [facility]. [address] * (ABNORMAL) POC Glucose (10/17/2025 6:23 PM EST) POC Glucose, Arterial 170(H) 70 - 100 mg/dL 10/17/2025 6:25 PM EST [facility] Blood, Arterial 10/17/2025 6 :23 PM EST 10/17/2025 6:25 PM EST Vani Winkler MD POINT OF CARE TEST ORDERABLE S Final Result Performing Organization Address [facility] Co de Phone Number [facility] [address] [facility]. [address] * (ABNORMAL) POC Ionized Calcium (10/17/2025 6:23 PM EST) POC Ionized Calcium 6.00(H) 4.50 - 5.30 mg/dL 10/17/2025 6:25 PM EST [facility] Blood, Arterial 10/17/2025 6 :23 PM EST 10/17/2025 6:25 PM EST Vani Winkler MD POINT OF CARE TEST ORDERABLE S Final Result Performing Organization Address City/[facility] Co de Phone Number [facility] [address] [facility]. [address] * POC Potassium (10/17/2025 6:23 PM EST) POC Potassium 3.8 3.5 - 5.3 mmol/L 10/17/2025 6:25 PM EST [facility] Blood, Arterial 10/17/2025 6 :23 PM EST 10/17/2025 6:25 PM EST Vani Winkler MD POINT OF CARE TEST ORDERABLE S Final Result Performing Organization Address City/State/[facility] Co de Phone Number [facility] [address] * POC Sodium (10/17/2025 6:23 PM EST) POC Sodium 142 136 - 146 mmol/L 10/17/2025 6:25 PM EST [facility] Blood, Arterial 10/17/2025 6 :23 PM EST 10/17/2025 6:25 PM EST Vani Winkler MD POINT OF CARE TEST ORDERABLE S Final Result Performing Organization Address [facility] Co de Phone Number [facility] [address] [facility]. [address] * (ABNORMAL) POC TCO2 (10/17/2025 6:23 PM EST) POC TCO2, Arterial 20(L) 23 - 27 mmol/L 10/17/2025 6:25 PM EST [facility] Blood, Arterial 10/17/2025 6 :23 PM EST 10/17/2025 6:25 PM EST Vani Winkler MD POINT OF CARE TEST ORDERABLE S Final Result Performing Organization Address City/[facility] Co de Phone Number [facility] [address] * POC O2 SAT (10/17/2025 6:23 PM EST) POC O2 Saturation, Arterial 95 95 - 98 % 10/17/2025 6:25 PM EST [facility] Blood, Arterial 10/17/2025 6 :23 PM EST 10/17/2025 6:25 PM EST Vani Winkler MD POINT OF CARE TEST ORDERABLE S Final Result [facility] [address] * (ABNORMAL) POC Base Excess (10/17/2025 6:23 PM EST) POC Base Excess, Arterial -6(L) -2 - 3 mmol/L 10/17/2025 6:25 PM EST [facility] Blood, Arterial 10/17/2025 6 :23 PM EST 10/17/2025 6:25 PM EST Vani Winkler MD POINT OF CARE TEST ORDERABLE S Final Result Performing Organization Address [facility] Co de Phone Number [facility] [address] * (ABNORMAL) POC HCO3 (10/17/2025 6:23 PM EST) POC HCO3, Arterial 19(L) 22 - 26 mmol/L 10/17/2025 6:25 PM EST [facility] Blood, Arterial 10/17/2025 6 :23 PM EST 10/17/2025 6:25 PM EST Vani Winkler MD POINT OF CARE TEST ORDERABLE S Final Result Performing Organization Address [facility] Co de Phone Number [facility] [address] * POC PO2 (10/17/2025 6:23 PM EST) POC pO2, Arterial 80 80 - 100 mm Hg 10/17/2025 6:25 PM EST [facility] Blood, Arterial 10/17/2025 6 :23 PM EST 10/17/2025 6:25 PM EST Vani Winkler MD POINT OF CARE TEST ORDERABLE S Final Result Performing Organization Address City/[facility]/ZIP Co de Phone Number [facility] [address] * POC PCO2 (10/17/2025 6:23 PM EST) POC pCO2, Arterial 36 35 - 45 mm Hg 10/17/2025 6:25 PM EST [facility] Blood, Arterial 10/17/2025 6 :23 PM EST 10/17/2025 6:25 PM EST Vani Winkler MD POINT OF CARE TEST ORDERABLE S Final Result [facility] [address] [facility]. [address] * (ABNORMAL) POC pH (10/17/2025 6:23 PM EST) POC pH, Arterial 7.33(L) 7.35 - 7.45 10/17/2025 6:25 PM EST [facility] Blood, Arterial 10/17/2025 6 :23 PM EST 10/17/2025 6:25 PM EST Result [facility] Vani Winkler MD POINT OF CARE TEST ORDERABLE S Final Result Performing Organization Address City/[facility] Co de Phone Number [facility] [address] [facility]. [address] * (ABNORMAL) POC INR (10/17/2025 6:21 PM EST) Prothrombin Time INR, POC 6.4(HH) 0.8 - 1.4 10/18/2025 12:07 AM EST [facility] Comment: Test results may vary [...] ORDERABLE S Final Result Performing Organization Address [facility] Co de Phone Number [facility] [address] [facility]. [address] * Transfuse Cryoprecipitate (10/17/2025 6:18 PM EST) Slade Munoz MD NURSING TREATMENT ORDERABLES - B LOOD ADMIN Final Result * POC Sample Type (10/17/2025 5:42 PM EST) POC Sample Type Arterial 10/17/2025 6:21 PM EST [facility] Blood, Arterial 10/17/2025 5 :42 PM EST 10/17/2025 6:21 PM EST Vani Winkler MD POINT OF CARE TEST ORDERABLE S Final Result Performing Organization Address [facility] Co de Phone Number [facility] [address] [facility]. [address] * POC Anion Gap (10/17/2025 5:42 PM EST) POC Anion Gap, Arterial 10 3 - 16 mmol/L 10/17/2025 6:21 PM EST [facility] Blood, Arterial 10/17/2025 5 :42 PM EST 10/17/2025 6:21 PM EST Vani Winkler MD POINT OF CARE TEST ORDERABLE S Final Result Performing Organization Address City/[facility] Co de Phone Number [facility] [address] [place] [address]. [address] * (ABNORMAL) POC Chloride (10/17/2025 5:42 PM EST) POC Chloride 111(H) 98 - 110 mmol/L 10/17/2025 6:21 PM EST [facility] Blood, Arterial 10/17/2025 5 :42 PM EST 10/17/2025 6:21 PM EST Vani Winkler MD POINT OF CARE TEST ORDERABLE S Final Result [facility] [address] * (ABNORMAL) POC Hemoglobin (10/17/2025 5:42 PM EST) POC Hemoglobin 7.9(L) 14.0 - 18.0 g/dL 10/17/2025 6:21 PM EST [facility] Blood, Arterial 10/17/2025 5 :42 PM EST 10/17/2025 6:21 PM EST Vani Winkler MD POINT OF CARE TEST ORDERABLE S Final Result Performing Organization Address [facility]/ZIP Co de Phone Number [facility] [address] [facility]. [address] * (ABNORMAL) POC hematocrit (10/17/2025 5:42 PM EST) POC Hematocrit 23.0(L) 40 - 52 % 10/17/2025 6:21 PM EST [facility] Blood, Arterial 10/17/2025 5 :42 PM EST 10/17/2025 6:21 PM EST Vani Winkler MD POINT OF CARE TEST ORDERABLE S Final Result Performing Organization Address [facility]/ZIP Co de Phone Number [facility] [address] [facility]. [address] * (ABNORMAL) POC Lactate (10/17/2025 5:42 PM EST) POC Lactate 2.53(H) 0.50 - 2.20 mmol/L 10/17/2025 6:21 PM EST [facility] Blood, Arterial 10/17/2025 5 :42 PM EST 10/17/2025 6:21 PM EST Vani Winkler MD POINT OF CARE TEST ORDERABLE S Final Result [facility] [address] * POC Glucose (10/17/2025 5:42 PM EST) POC Glucose, Arterial 77 70 - 100 mg/dL 10/17/2025 6:21 PM EST [facility] Blood, Arterial 10/17/2025 5 :42 PM EST 10/17/2025 6:21 PM EST Vani Winkler MD POINT OF CARE TEST ORDERABLE S Final Result [facility] [address] * (ABNORMAL) POC Ionized Calcium (10/17/2025 5:42 PM EST) POC Ionized Calcium 5.90(H) 4.50 - 5.30 mg/dL 10/17/2025 6:21 PM EST [facility] Blood, Arterial 10/17/2025 5 :42 PM EST 10/17/2025 6:21 PM EST Vani Winkler MD POINT OF CARE TEST ORDERABLE S Final Result [facility] [address] * POC Potassium (10/17/2025 5:42 PM EST) POC Potassium 3.7 3.5 - 5.3 mmol/L 10/17/2025 6:21 PM EST [facility] Blood, Arterial 10/17/2025 5 :42 PM EST 10/17/2025 6:21 PM EST Vani Winkler MD POINT OF CARE TEST ORDERABLE S Final Result [facility] [address] * POC Sodium (10/17/2025 5:42 PM EST) POC Sodium 141 136 - 146 mmol/L 10/17/2025 6:21 PM EST [facility] Blood, Arterial 10/17/2025 5 :42 PM EST 10/17/2025 6:21 PM EST Vani Winkler MD POINT OF CARE TEST ORDERABLE S Final Result [facility] [address] [facility]. [address] * (ABNORMAL) POC TCO2 (10/17/2025 5:42 PM EST) POC TCO2, Arterial 21(L) 23 - 27 mmol/L 10/17/2025 6:21 PM EST [facility] Blood, Arterial 10/17/2025 5 :42 PM EST 10/17/2025 6:21 PM EST us Vani Winkler MD POINT OF CARE TEST ORDERABLE S Final Result [facility] [address] [facility]. [address] * (ABNORMAL) POC O2 SAT (10/17/2025 5:42 PM EST) POC O2 Saturation, Arterial 99(H) 95 - 98 % 10/17/2025 6:21 PM EST [facility] Blood, Arterial 10/17/2025 5 :42 PM EST 10/17/2025 6:21 PM EST Vani Winkler MD POINT OF CARE TEST ORDERABLE S Final Result [facility] [address] [facility] * (ABNORMAL) POC Base Excess (10/17/2025 5:42 PM EST) POC Base Excess, Arterial -4(L) -2 - 3 mmol/L 10/17/2025 6:21 PM EST [facility] Blood, Arterial 10/17/2025 5 :42 PM EST 10/17/2025 6:21 PM EST Vani Winkler MD POINT OF CARE TEST ORDERABLE S Final Result [facility] [address] [facility]. [address] * (ABNORMAL) POC HCO3 (10/17/2025 5:42 PM EST) POC HCO3, Arterial 20(L) 22 - 26 mmol/L 10/17/2025 6:21 PM EST [facility] Blood, Arterial 10/17/2025 5 :42 PM EST 10/17/2025 6:21 PM EST Vani Winkler MD POINT OF CARE TEST ORDERABLE S Final Result Performing Organization Address City/[facility]/ZIP Co de Phone Number [facility] [address] [facility]. [address] * (ABNORMAL) POC PO2 (10/17/2025 5:42 PM EST) POC pO2, Arterial 159(H) 80 - 100 mm Hg 10/17/2025 6:21 PM EST [facility] Blood, Arterial 10/17/2025 5 :42 PM EST 10/17/2025 6:21 PM EST Vani Winkler MD POINT OF CARE TEST ORDERABLE S Final Result [facility] [address] [facility]. [address] * (ABNORMAL) POC PCO2 (10/17/2025 5:42 PM EST) POC pCO2, Arterial 33(L) 35 - 45 mm Hg 10/17/2025 6:21 PM EST [facility] Blood, Arterial 10/17/2025 5 :42 PM EST 10/17/2025 6:21 PM EST Vani Winkler MD POINT OF CARE TEST ORDERABLE S Final Result [facility] [address] * POC pH (10/17/2025 5:42 PM EST) POC pH, Arterial 7.40 7.35 - 7.45 10/17/2025 6:21 PM EST [facility] Blood, Arterial 10/17/2025 5 :42 PM EST 10/17/2025 6:21 PM EST Vani Winkler MD POINT OF CARE TEST ORDERABLE S Final Result Performing Organization Address [facility] de Phone Number [facility] [address] [facility]. [address] * (ABNORMAL) POC INR (10/17/2025 5:37 PM EST) Prothrombin Time INR, POC 3.6(H) 0.8 - 1.4 10/18/2025 12:07 AM EST [facility] Comment: Test results may vary [...] ORDERABLE S Final Result Performing Organization Address City/[facility]/ZIP Co de Phone Number [facility] [address] * Transfuse RBC (10/17/2025 5:34 PM [...] [facility] - 10/17/2025 12:00 AM EST CASE: [id number] PATIENT: DAVID SERRANO Clinical History: transplant liver Pre-Operative Diagnosis: end stage liver disease Post-Operative Diagnosis: same Specimen(s) Submitted: A. [place] liver and gallbladder; B. Right lobe post perfusion liver bx; C. Left lobe post perfusion liver bx CPT Code(s): 60035 X 2; 21069 X 1; 15759 X 7 Additional Information: FINAL DIAGNOSIS: Liver and gall bladder, [place], total hepatectomy with cholecystectomy: Liver: -Cirrhosis, mild [...] with the patient's name David Serrano and [place] liver and gallbladder is a 782 gram, [...] no discrete masses or lesions are identified. Manifold Operator sections are submitted in cassettes [id number] as follows: A1: Manifold Operator gallbladder. A2: Hilar margins, en face. A3-A5: Manifold Operator right lobe. A6-A8: Manifold Operator left lobe with liver written on the side of the cassette in A8. (LAISHA Miranda/) B. Received in formalin, labeled with the patient's name David Serrano and right lobe post perfusion liver biopsy is a 1.6 cm in length x 0.1 cm in diameter red-brown tissue core, which is entirely submitted between blue biopsy sponges in cassette [id number]. (LAISHA Miranda/) C. Received in formalin, labeled with the patient's name David Serrano and left lobe post perfusion liver biopsy is a 1.3 cm in length x 0.1 cm in diameter red-brown fragmented tissue core, which is entirely submitted between blue biopsy sponges in cassette [id number]. (LAISHA Miranda/vc) Microscopic Description: Sixteen HE [...] Pathologist signing this report is located at [facility], [address] [place] [address], [facility], , CLIA ID: [id number] us Leticia Lomeli MD PATHOLOGY/CYTOLOGY ORDERABLES Final Result Performing Organization Address [facility] Co de Phone Number [facility] * Transfuse RBC (10/17/2025 5:19 PM EST) us Slade Munoz MD NURSING TREATMENT ORDERABLES - B LOOD ADMIN Final Result * POC Sample Type (10/17/2025 5:00 PM EST) POC Sample Type Arterial 10/17/2025 5:03 PM EST [facility] Blood, Arterial 10/17/2025 5 :00 PM EST 10/17/2025 5:03 PM EST Vani Winkler MD POINT OF CARE TEST ORDERABLE S Final Result Performing Organization Address [facility] Co de Phone Number [facility] [address] * POC Anion Gap (10/17/2025 5:00 PM EST) Pathologist [facility] POC Anion Gap, Arterial 11 3 - 16 mmol/L 10/17/2025 5:03 PM EST [facility] Blood, Arterial 10/17/2025 5 :00 PM EST 10/17/2025 5:03 PM EST Vani Winkler MD POINT OF CARE TEST ORDERABLE S Final Result Performing Organization Address [facility] Co de Phone Number [facility] [address] * POC Chloride (10/17/2025 5:00 PM EST) POC Chloride 109 98 - 110 mmol/L 10/17/2025 5:03 PM EST [facility] Blood, Arterial 10/17/2025 5 :00 PM EST 10/17/2025 5:03 PM EST Vani Winkler MD POINT OF CARE TEST ORDERABLE S Final Result [facility] [address] [facility]. [address] * (ABNORMAL) POC Hemoglobin (10/17/2025 5:00 PM EST) POC Hemoglobin 7.9(L) 14.0 - 18.0 g/dL 10/17/2025 5:03 PM EST [facility] Blood, Arterial 10/17/2025 5 :00 PM EST 10/17/2025 5:03 PM EST us Vani Winkler MD POINT OF CARE TEST ORDERABLE S Final Result Performing Organization Address City/[facility]/ZIP Co de Phone Number [facility] [address] [facility]. [address] * (ABNORMAL) POC hematocrit (10/17/2025 5:00 PM EST) POC Hematocrit 23.0(L) 40 - 52 % 10/17/2025 5:03 PM EST [facility] Blood, Arterial 10/17/2025 5 :00 PM EST 10/17/2025 5:03 PM EST us Vani Winkler MD POINT OF CARE TEST ORDERABLE S Final Result [facility] [address] [facility]. [address] * (ABNORMAL) POC Lactate (10/17/2025 5:00 PM EST) POC Lactate 2.68(H) 0.50 - 2.20 mmol/L 10/17/2025 5:03 PM EST [facility] Blood, Arterial 10/17/2025 5 :00 PM EST 10/17/2025 5:03 PM EST Vani Winkler MD POINT OF CARE TEST ORDERABLE S Final Result [facility] [address] * POC Glucose (10/17/2025 5:00 PM EST) POC Glucose, Arterial 96 70 - 100 mg/dL 10/17/2025 5:03 PM EST [facility] Blood, Arterial 10/17/2025 5 :00 PM EST 10/17/2025 5:03 PM EST Vani Winkler MD POINT OF CARE TEST ORDERABLE S Final Result Performing Organization Address City/[facility]/ZIP Co de Phone Number [facility] [address] * POC Ionized Calcium (10/17/2025 5:00 PM EST) POC Ionized Calcium 4.60 4.50 - 5.30 mg/dL 10/17/2025 5:03 PM EST [facility] Blood, Arterial 10/17/2025 5 :00 PM EST 10/17/2025 5:03 PM EST Vani Winkler MD POINT OF CARE TEST ORDERABLE S Final Result Performing Organization Address City/[facility]/ZIP Co de Phone Number [facility] [address] [facility]. [address] * POC Potassium (10/17/2025 5:00 PM EST) POC Potassium 3.7 3.5 - 5.3 mmol/L 10/17/2025 5:03 PM EST [facility] Blood, Arterial 10/17/2025 5 :00 PM EST 10/17/2025 5:03 PM EST Vani Winkler MD POINT OF CARE TEST ORDERABLE S Final Result [facility] [address] [facility] * POC Sodium (10/17/2025 5:00 PM EST) POC Sodium 143 136 - 146 mmol/L 10/17/2025 5:03 PM EST [facility] Blood, Arterial 10/17/2025 5 :00 PM EST 10/17/2025 5:03 PM EST Vani Winkler MD POINT OF CARE TEST ORDERABLE S Final Result [facility] [address] [facility]. [address] * POC TCO2 (10/17/2025 5:00 PM EST) Pathologist [facility] POC TCO2, Arterial 24 23 - 27 mmol/L 10/17/2025 5:03 PM EST [facility] Blood, Arterial 10/17/2025 5 :00 PM EST 10/17/2025 5:03 PM EST Vani Winkler MD POINT OF CARE TEST ORDERABLE S Final Result Performing Organization Address City/[facility]/ZIP Co de Phone Number [facility] [address] [facility]. [address] * (ABNORMAL) POC O2 SAT (10/17/2025 5:00 PM EST) Pathologist [facility] POC O2 Saturation, Arterial 100(H) 95 - 98 % 10/17/2025 5:03 PM EST [facility] Blood, Arterial 10/17/2025 5 :00 PM EST 10/17/2025 5:03 PM EST Vani Winkler MD POINT OF CARE TEST ORDERABLE S Final Result Performing Organization Address City/[facility]/ZIP Co de Phone Number [facility] [address] [facility]. [address] * POC Base Excess (10/17/2025 5:00 PM EST) POC Base Excess, Arterial -2 -2 - 3 mmol/L 10/17/2025 5:03 PM EST [facility] Blood, Arterial 10/17/2025 5 :00 PM EST 10/17/2025 5:03 PM EST Vani Winkler MD POINT OF CARE TEST ORDERABLE S Final Result [facility] [address] [place] [address]. [address] * POC HCO3 (10/17/2025 5:00 PM EST) POC HCO3, Arterial 23 22 - 26 mmol/L 10/17/2025 5:03 PM EST [facility] Blood, Arterial 10/17/2025 5 :00 PM EST 10/17/2025 5:03 PM EST Vani Winkler MD POINT OF CARE TEST ORDERABLE S Final Result [facility] [address] [facility] * (ABNORMAL) POC PO2 (10/17/2025 5:00 PM EST) POC pO2, Arterial 200(H) 80 - 100 mm Hg 10/17/2025 5:03 PM EST [facility] Blood, Arterial 10/17/2025 5 :00 PM EST 10/17/2025 5:03 PM EST Vani Winkler MD POINT OF CARE TEST ORDERABLE S Final Result [facility] [address] [facility]. [address] * POC PCO2 (10/17/2025 5:00 PM EST) POC pCO2, Arterial 38 35 - 45 mm Hg 10/17/2025 5:03 PM EST [facility] Blood, Arterial 10/17/2025 5 :00 PM EST 10/17/2025 5:03 PM EST Vani Winkler MD POINT OF CARE TEST ORDERABLE S Final Result [facility] [address] [facility] * POC pH (10/17/2025 5:00 PM EST) POC pH, Arterial 7.39 7.35 - 7.45 10/17/2025 5:03 PM EST [facility] Blood, Arterial 10/17/2025 5 :00 PM EST 10/17/2025 5:03 PM EST Vani Winkler MD POINT OF CARE TEST ORDERABLE S Final Result Performing Organization Address [facility] de Phone Number [facility] [address] [facility]. [address] * (ABNORMAL) POC INR (10/17/2025 4:59 PM EST) Prothrombin Time INR, POC 1.7(H) 0.8 - 1.4 10/18/2025 12:07 AM EST [facility] Comment: Test results may vary [...] ORDERABLE S Final Result Performing Organization Address City/[facility] Co de Phone Number [facility] [address] [facility]. [address] * (ABNORMAL) TEG-Bypass/ECMO/Liver HN (Factor function, Platelet/Fibrin Clot Strength w/Clot Breakdown, Heparinase In All Channels) (10/17/2025 4:56 PM EST) Citrated Kaolin Reaction Time (TEGECMOLIVER) 4.7 4.6 - 9.1 minutes 10/17/2025 6:20 PM EST [facility] [facility] Citrated Kaolin W/Heparinase Reaction Time (TEGECMOLIVER) 4.7 4.3 - 8.3 minutes 10/17/2025 6:20 PM EST [facility] Citrated Kaolin Maximum Amplitude (TEGECMOLIVER) 42.4(L) 52.0 - 69.0 mm 10/17/2025 6:20 PM EST [facility] Citrated Functional Fibrinogen W/Heparinase Maximum Amplitude(TEGEC MOLIVER) 6.6(L) 15.0 - 34.0 mm 10/17/2025 6:20 PM EST [facility] Citrated Rapid Teg W/Heparinase Maximum Amplitude (TEGECMOLIVER) 39.8(L) 53.0 - 69.0 mm 10/17/2025 6:20 PM EST [facility] Citrated Kaolin w/Heparinase Percent Lysis (TEGECMOLIVER) 0.0 0.0 - 3.2 % 10/17/2025 6:20 PM EST [facility] Whole Blood (Citrate) 10/17/2025 4:56 PM EST 10/17/2025 5:06 PM EST us Slade Munoz MD LAB BLOOD ORDERABLES Final Resul t Performing Organization Address City/State/[facility] Co de Phone Number [facility] [address] * (ABNORMAL) Protime-INR (10/17/2025 4:56 PM EST) Protime 26.4(H) 12.1 - 15.1 seconds 10/17/2025 5:31 PM EST [facility] INR 2.3(H) 0.9 - 1.1 10/17/2025 5:31 PM EST [facility] Comment: RECOMMENDED THERAPEUTIC RANGES USING INR : Stable oral anticoagulant therapy: 2.0 - 3.0 Mechanical prosthetic heart valve: 2.5 - 3.5 Recurrent acute myocardial infarction: 2.5 - 3.5 Plasma 10/17/2025 4:56 PM EST 10/17/2025 5:06 PM EST us Slade Munoz MD LAB BLOOD ORDERABLES Final Resul t [facility] [address] [facility]. [address] * (ABNORMAL) Fibrinogen (10/17/2025 4:56 PM EST) Fibrinogen 137(L) 218 - 406 mg/dL 10/17/2025 5:36 PM EST [facility] Plasma 10/17/2025 4:56 PM EST 10/17/2025 5:06 PM EST Slade Munoz MD LAB BLOOD ORDERABLES Final Resul t Performing Organization Address City/[facility]/ZIP Co de Phone Number [facility] [address] [facility]. [address] * (ABNORMAL) CBC (10/17/2025 4:56 PM EST) WBC 3.9 3.8 - 10.8 10E3/uL 10/17/2025 8:25 PM EST [facility] RBC 2.67(L) 4.20 - 5.80 10E6/uL 10/17/2025 8:25 PM EST [facility] Hemoglobin 9.2(L) 13.2 - 17.1 g/dL 10/17/2025 8:25 PM EST [facility] Hematocrit 26.1(L) 38.5 - 50.0 % 10/17/2025 8:25 PM EST [facility] MCV 98.0 80.0 - 100.0 fL 10/17/2025 8:25 PM EST [facility] MCH 34.5(H) 27.0 - 33.0 pg 10/17/2025 8:25 PM EST [facility] MCHC 35.3 32.0 - 36.0 g/dL 10/17/2025 8:25 PM EST [facility] RDW 17.9(H) 11.0 - 15.0 % 10/17/2025 8:25 PM EST [facility] Platelets 64(L) 140 - 400 10E3/uL 10/17/2025 8:25 PM EST [facility] MPV 8.2 7.5 - 11.5 fL 10/17/2025 8:25 PM EST [facility] Whole Blood 10/17/2025 4:56 PM EST 10/17/2025 5:19 PM EST Slade Munoz MD LAB BLOOD ORDERABLES Final Resul t [facility] [address] [facility]. [address] * (ABNORMAL) APTT, No Anticoagulant (10/17/2025 4:56 PM EST) aPTT 55.7(H) 25.5 - 35.0 seconds 10/17/2025 5:32 PM EST [facility] Plasma 10/17/2025 4:56 PM EST 10/17/2025 5:06 PM EST Slade Munoz MD LAB BLOOD ORDERABLES Final Resul t Performing Organization Address [facility] Co de Phone Number [facility] [address] [facility]. [address] * Transfuse Cryoprecipitate (10/17/2025 4:18 PM EST) Slade Munoz MD [...] Arterial 10/17/2025 4:01 PM EST [facility] Blood, Arterial 10/17/2025 3 :59 PM EST 10/17/2025 4:01 PM EST Vani Winkler MD POINT OF CARE TEST ORDERABLE S Final Result [facility] [address] [facility]. [address] * POC Anion Gap (10/17/2025 3:59 PM EST) POC Anion Gap, Arterial 10 3 - 16 mmol/L 10/17/2025 4:01 PM EST [facility] Blood, Arterial 10/17/2025 3 :59 PM EST 10/17/2025 4:01 PM EST Vani Winkler MD POINT OF CARE TEST ORDERABLE S Final Result [facility] [address] * (ABNORMAL) POC Chloride (10/17/2025 3:59 PM EST) POC Chloride 111(H) 98 - 110 mmol/L 10/17/2025 4:01 PM EST [facility] Blood, Arterial 10/17/2025 3 :59 PM EST 10/17/2025 4:01 PM EST Vani Winkler MD POINT OF CARE TEST ORDERABLE S Final Result [facility] [address] * (ABNORMAL) POC Hemoglobin (10/17/2025 3:59 PM EST) Pathologist [facility] POC Hemoglobin 9.7(L) 14.0 - 18.0 g/dL 10/17/2025 4:01 PM EST [facility] Blood, Arterial 10/17/2025 3 :59 PM EST 10/17/2025 4:01 PM EST Vani Winkler MD POINT OF CARE TEST ORDERABLE S Final Result [facility] [address] [facility]. [address] * (ABNORMAL) POC hematocrit (10/17/2025 3:59 PM EST) [facility] POC Hematocrit 29.0(L) 40 - 52 % 10/17/2025 4:01 PM EST [facility] Blood, Arterial 10/17/2025 3 :59 PM EST 10/17/2025 4:01 PM EST Vani Winkler MD POINT OF CARE TEST ORDERABLE S Final Result Performing Organization Address City/[facility]/ZIP Co de Phone Number [facility] [address] [facility]. [address] * POC Lactate (10/17/2025 3:59 PM EST) [facility] POC Lactate 1.77 0.50 - 2.20 mmol/L 10/17/2025 4:01 PM EST [facility] Blood, Arterial 10/17/2025 3 :59 PM EST 10/17/2025 4:01 PM EST Vani Winkler MD POINT OF CARE TEST ORDERABLE S Final Result [facility] [address] [facility]. [address] * POC Glucose (10/17/2025 3:59 PM EST) POC Glucose, Arterial 81 70 - 100 mg/dL 10/17/2025 4:01 PM EST [facility] Blood, Arterial 10/17/2025 3 :59 PM EST 10/17/2025 4:01 PM EST Vani Winkler MD POINT OF CARE TEST ORDERABLE S Final Result [facility] [address] [facility]. [address] * POC Ionized Calcium (10/17/2025 3:59 PM EST) POC Ionized Calcium 4.90 4.50 - 5.30 mg/dL 10/17/2025 4:01 PM EST [facility] Blood, Arterial 10/17/2025 3 :59 PM EST 10/17/2025 4:01 PM EST Vani Winkler MD POINT OF CARE TEST ORDERABLE S Final Result [facility] [address] [facility]. [address] * POC Potassium (10/17/2025 3:59 PM EST) POC Potassium 3.7 3.5 - 5.3 mmol/L 10/17/2025 4:01 PM EST [facility] Blood, Arterial 10/17/2025 3 :59 PM EST 10/17/2025 4:01 PM EST Vani Winkler MD POINT OF CARE TEST ORDERABLE S Final Result [facility] [address] [place] [address]. [address] * POC Sodium (10/17/2025 3:59 PM EST) POC Sodium 145 136 - 146 mmol/L 10/17/2025 4:01 PM EST [facility] Blood, Arterial 10/17/2025 3 :59 PM EST 10/17/2025 4:01 PM EST Vani Winkler MD POINT OF CARE TEST ORDERABLE S Final Result [facility] [address] * POC TCO2 (10/17/2025 3:59 PM EST) POC TCO2, Arterial 26 23 - 27 mmol/L 10/17/2025 4:01 PM EST [facility] Blood, Arterial 10/17/2025 3 :59 PM EST 10/17/2025 4:01 PM EST Vani Winkler MD POINT OF CARE TEST ORDERABLE S Final Result Performing Organization Address City/[facility]/ZIP Co de Phone Number [facility] [address] [facility]. [address] * (ABNORMAL) POC O2 SAT (10/17/2025 3:59 PM EST) POC O2 Saturation, Arterial 100(H) 95 - 98 % 10/17/2025 4:01 PM EST [facility] Blood, Arterial 10/17/2025 3 :59 PM EST 10/17/2025 4:01 PM EST Vani Winkler MD POINT OF CARE TEST ORDERABLE S Final Result [facility] [address] * POC Base Excess (10/17/2025 3:59 PM EST) POC Base Excess, Arterial -1 -2 - 3 mmol/L 10/17/2025 4:01 PM EST [facility] Blood, Arterial 10/17/2025 3 :59 PM EST 10/17/2025 4:01 PM EST us Vani Winkler MD POINT OF CARE TEST ORDERABLE S Final Result [facility] [address] * POC HCO3 (10/17/2025 3:59 PM EST) POC HCO3, Arterial 24 22 - 26 mmol/L 10/17/2025 4:01 PM EST [facility] Blood, Arterial 10/17/2025 3 :59 PM EST 10/17/2025 4:01 PM EST us Vani Winkler MD POINT OF CARE TEST ORDERABLE S Final Result Performing Organization Address [facility]/ZIP Co de Phone Number [facility] [address] * (ABNORMAL) POC PO2 (10/17/2025 3:59 PM EST) POC pO2, Arterial 213(H) 80 - 100 mm Hg 10/17/2025 4:01 PM EST [facility] Blood, Arterial 10/17/2025 3 :59 PM EST 10/17/2025 4:01 PM EST us Vani Winkler MD POINT OF CARE TEST ORDERABLE S Final Result Performing Organization Address City/[facility]/ZIP Co de Phone Number [facility] [address] * POC PCO2 (10/17/2025 3:59 PM EST) POC pCO2, Arterial 45 35 - 45 mm Hg 10/17/2025 4:01 PM EST [facility] Blood, Arterial 10/17/2025 3 :59 PM EST 10/17/2025 4:01 PM EST us Vani Winkler MD POINT OF CARE TEST ORDERABLE S Final Result [facility] [address] * (ABNORMAL) POC pH (10/17/2025 3:59 PM EST) POC pH, Arterial 7.34(L) 7.35 - 7.45 10/17/2025 4:01 PM EST [facility] Blood, Arterial 10/17/2025 3 :59 PM EST 10/17/2025 4:01 PM EST Result [facility] Vani Winkler MD POINT OF CARE TEST ORDERABLE S Final Result Performing Organization Address City/[facility]/ZIP Co de Phone Number [facility] [address] [facility]. [address] * (ABNORMAL) POC INR (10/17/2025 3:58 PM EST) Prothrombin Time INR, POC 2.8(H) 0.8 - 1.4 10/18/2025 12:07 AM EST [facility] Comment: Test results may vary using different testing platforms. Serial result monitoring should be performed using the same methodology. RECOMMENDED THERAPEUTIC RANGES USING INR : Stable oral anticoagulant therapy: 2.0 - 3.0 Mechanical prosthetic heart valve: 2.5 - 3.5 Recurrent acute myocardial infarction: 2.5 - 3.5 Blood 10/17/2025 3:58 PM EST 10/18/2025 12:07 AM EST Result [facility] Vani Winkler MD POINT OF CARE TEST ORDERABLE S Final Result [facility] [address] [facility]. [address] * Transfuse RBC (10/17/2025 3:23 PM EST) Result [facility] us Slade Munoz MD NURSING TREATMENT ORDERABLES - B LOOD ADMIN Final Result * Transfuse RBC (10/17/2025 3:15 PM EST) Result [facility] us Slade Munoz MD NURSING TREATMENT ORDERABLES - B LOOD ADMIN Final Result * (ABNORMAL) TEG-Bypass/ECMO/Liver HN (Factor function, Platelet/Fibrin Clot Strength w/Clot Breakdown, Heparinase In All Channels) (10/17/2025 2:55 PM EST) Citrated Kaolin Reaction Time (TEGECMOLIVER) 5.1 4.6 - 9.1 minutes 10/17/2025 4:23 PM EST [facility] Citrated Kaolin W/Heparinase Reaction Time (TEGECMOLIVER) 5.2 4.3 - 8.3 minutes 10/17/2025 4:23 PM EST [facility] Citrated Kaolin Maximum Amplitude (TEGECMOLIVER) <40.0(L) 52.0 - 69.0 mm 10/17/2025 4:23 PM EST [facility] Citrated Functional Fibrinogen W/Heparinase Maximum Amplitude(TEGEC MOLIVER) <6.0(L) 15.0 - 34.0 mm 10/17/2025 4:23 PM EST [facility] Citrated Rapid Teg W/Heparinase Maximum Amplitude (TEGECMOLIVER) 32.8(L) 53.0 - 69.0 mm 10/17/2025 4:23 PM EST [facility] Citrated Kaolin w/Heparinase Percent Lysis (TEGECMOLIVER) 0.0 0.0 - 3.2 % 10/17/2025 4:23 PM EST [facility] Whole Blood (Citrate) 10/17/2025 2:55 PM EST 10/17/2025 3:05 PM EST us Slade Munoz MD LAB BLOOD ORDERABLES Final Resul t [facility] [address] * (ABNORMAL) CBC (10/17/2025 2:55 PM EST) WBC 4.4 3.8 - 10.8 10E3/uL 10/17/2025 3:20 PM EST [facility] RBC 2.90(L) 4.20 - 5.80 10E6/uL 10/17/2025 3:20 PM EST [facility] Hemoglobin 10.0(L) 13.2 - 17.1 g/dL 10/17/2025 3:20 PM EST [facility] Hematocrit 28.6(L) 38.5 - 50.0 % 10/17/2025 3:20 PM EST [facility] MCV 98.7 80.0 - 100.0 fL 10/17/2025 3:20 PM EST [facility] MCH 34.4(H) 27.0 - 33.0 pg 10/17/2025 3:20 PM EST [facility] MCHC 34.8 32.0 - 36.0 g/dL 10/17/2025 3:20 PM EST [facility] RDW 17.0(H) 11.0 - 15.0 % 10/17/2025 3:20 PM EST [facility] Platelets 53(L) 140 - 400 10E3/uL 10/17/2025 3:20 PM EST [facility] MPV 7.6 7.5 - 11.5 fL 10/17/2025 3:20 PM EST [facility] Whole Blood 10/17/2025 2:55 PM EST 10/17/2025 3:06 PM EST Slade Munoz MD LAB BLOOD ORDERABLES Final Resul t Performing Organization Address City/[facility]/ZIP Co de Phone Number [facility] [address] * (ABNORMAL) Fibrinogen (10/17/2025 2:55 PM EST) Fibrinogen 85(LL) 218 - 406 mg/dL 10/17/2025 3:46 PM EST [facility] Comment:The critical result was called to, and read back by, licensed caregiver CAMI GALEANO MD, AT 1545 Plasma 10/17/2025 2:55 PM EST 10/17/2025 3:06 PM EST Slade Munoz MD LAB BLOOD ORDERABLES Final Resul t Performing Organization Address City/[facility]/ZIP Co de Phone Number [facility] [address] * (ABNORMAL) Protime-INR (10/17/2025 2:55 PM EST) Protime 26.5(H) 12.1 - 15.1 seconds 10/17/2025 3:30 PM EST [facility] INR 2.3(H) 0.9 - 1.1 10/17/2025 3:30 PM EST [facility] Comment: RECOMMENDED THERAPEUTIC RANGES USING INR : Stable oral anticoagulant therapy: 2.0 - 3.0 Mechanical prosthetic heart valve: 2.5 - 3.5 Recurrent acute myocardial infarction: 2.5 - 3.5 Plasma 10/17/2025 2:55 PM EST 10/17/2025 3:06 PM EST Slade Munoz MD LAB BLOOD ORDERABLES Final Resul t Performing Organization Address City/[facility] Co de Phone Number [facility] [address] * POC Sample Type (10/17/2025 2:54 PM EST) Pathologist [facility] POC Sample Type Arterial 10/17/2025 3:55 PM EST [facility] Blood, Arterial 10/17/2025 2 :54 PM EST 10/17/2025 3:55 PM EST Vani Winkler MD POINT OF CARE TEST ORDERABLE S Final Result Performing Organization Address [facility] Co de Phone Number [facility] [address] * POC Anion Gap (10/17/2025 2:54 PM EST) Pathologist [facility] POC Anion Gap, Arterial 10 3 - 16 mmol/L 10/17/2025 3:55 PM EST [facility] Blood, Arterial 10/17/2025 2 :54 PM EST 10/17/2025 3:55 PM EST Vani Winkler MD POINT OF CARE TEST ORDERABLE S Final Result Performing Organization Address City/[facility]/ZIP Co de Phone Number [facility] [address] * (ABNORMAL) POC Chloride (10/17/2025 2:54 PM EST) POC Chloride 112(H) 98 - 110 mmol/L 10/17/2025 3:55 PM EST [facility] Blood, Arterial 10/17/2025 2 :54 PM EST 10/17/2025 3:55 PM EST Vani Winkler MD POINT OF CARE TEST ORDERABLE S Final Result [facility] [address] * (ABNORMAL) POC Hemoglobin (10/17/2025 2:54 PM EST) Pathologist [facility] POC Hemoglobin 8.7(L) 14.0 - 18.0 g/dL 10/17/2025 3:55 PM EST [facility] Blood, Arterial 10/17/2025 2 :54 PM EST 10/17/2025 3:55 PM EST Vani Winkler MD POINT OF CARE TEST ORDERABLE S Final Result Performing Organization Address City/[facility]/ZIP Co de Phone Number [facility] [address] * (ABNORMAL) POC hematocrit (10/17/2025 2:54 PM EST) Pathologist [facility] POC Hematocrit 26.0(L) 40 - 52 % 10/17/2025 3:55 PM EST [facility] Blood, Arterial 10/17/2025 2 :54 PM EST 10/17/2025 3:55 PM EST Vani Winkler MD POINT OF CARE TEST ORDERABLE S Final Result Performing Organization Address City/[facility]/ZIP Co de Phone Number [facility] [address] * POC Lactate (10/17/2025 2:54 PM EST) POC Lactate 1.23 0.50 - 2.20 mmol/L 10/17/2025 3:55 PM EST [facility] Blood, Arterial 10/17/2025 2 :54 PM EST 10/17/2025 3:55 PM EST Vani Winkler MD POINT OF CARE TEST ORDERABLE S Final Result [facility] [address] [place] [address]. [address] * POC Glucose (10/17/2025 2:54 PM EST) POC Glucose, Arterial 74 70 - 100 mg/dL 10/17/2025 3:55 PM EST [facility] Blood, Arterial 10/17/2025 2 :54 PM EST 10/17/2025 3:55 PM EST Vani Winkler MD POINT OF CARE TEST ORDERABLE S Final Result Performing Organization Address [facility] Co de Phone Number [facility] [address] [place] [address]. [address] * POC Ionized Calcium (10/17/2025 2:54 PM EST) POC Ionized Calcium 4.70 4.50 - 5.30 mg/dL 10/17/2025 3:55 PM EST [facility] Blood, Arterial 10/17/2025 2 :54 PM EST 10/17/2025 3:55 PM EST Vani Winkler MD POINT OF CARE TEST ORDERABLE S Final Result Performing Organization Address City/[facility] Co de Phone Number [facility] [address] [place] [address]. [address] * (ABNORMAL) POC Potassium (10/17/2025 2:54 PM EST) POC Potassium 3.2(L) 3.5 - 5.3 mmol/L 10/17/2025 3:55 PM EST [facility] Blood, Arterial 10/17/2025 2 :54 PM EST 10/17/2025 3:55 PM EST Vani Winkler MD POINT OF CARE TEST ORDERABLE S Final Result Performing Organization Address City/[facility]/ZIP Co de Phone Number [facility] [address] [facility]. [address] * POC Sodium (10/17/2025 2:54 PM EST) POC Sodium 145 136 - 146 mmol/L 10/17/2025 3:55 PM EST [facility] Blood, Arterial 10/17/2025 2 :54 PM EST 10/17/2025 3:55 PM EST Vani Winkler MD POINT OF CARE TEST ORDERABLE S Final Result Performing Organization Address City/[facility] Co de Phone Number [facility] [address] * POC TCO2 (10/17/2025 2:54 PM EST) POC TCO2, Arterial 24 23 - 27 mmol/L 10/17/2025 3:55 PM EST [facility] Blood, Arterial 10/17/2025 2:54 PM EST 10/17/2025 3:55 PM EST Vani Winkler MD POINT OF CARE TEST ORDERABLE S Final Result Performing Organization Address City/[facility] Co de Phone Number [facility] [address] [facility]. [address] * (ABNORMAL) POC O2 SAT (10/17/2025 2:54 PM EST) POC O2 Saturation, Arterial 100(H) 95 - 98 % 10/17/2025 3:55 PM EST [facility] Blood, Arterial 10/17/2025 2 :54 PM EST 10/17/2025 3:55 PM EST Vani Winkler MD POINT OF CARE TEST ORDERABLE S Final Result [facility] [address] [place] [address]. [address] * POC Base Excess (10/17/2025 2:54 PM EST) POC Base Excess, Arterial -2 -2 - 3 mmol/L 10/17/2025 3:55 PM EST [facility] Blood, Arterial 10/17/2025 2 :54 PM EST 10/17/2025 3:55 PM EST Vani Winkler MD POINT OF CARE TEST ORDERABLE S Final Result Performing Organization Address [facility] Co de Phone Number [facility] [address] [facility]. [address] * POC HCO3 (10/17/2025 2:54 PM EST) POC HCO3, Arterial 23 22 - 26 mmol/L 10/17/2025 3:55 PM EST [facility] Blood, Arterial 10/17/2025 2 :54 PM EST 10/17/2025 3:55 PM EST Vani Winkler MD POINT OF CARE TEST ORDERABLE S Final Result [facility] [address] [place] [address]. [address] * (ABNORMAL) POC PO2 (10/17/2025 2:54 PM EST) POC pO2, Arterial 179(H) 80 - 100 mm Hg 10/17/2025 3:55 PM EST [facility] Blood, Arterial 10/17/2025 2 :54 PM EST 10/17/2025 3:55 PM EST Vani Winkler MD POINT OF CARE TEST ORDERABLE S Final Result [facility] [address] * POC PCO2 (10/17/2025 2:54 PM EST) POC pCO2, Arterial 40 35 - 45 mm Hg 10/17/2025 3:55 PM EST [facility] Blood, Arterial 10/17/2025 2 :54 PM EST 10/17/2025 3:55 PM EST Vani Winkler MD POINT OF CARE TEST ORDERABLE S Final Result Performing Organization Address City/[facility]/ZIP Co de Phone Number [facility] [address] * POC pH (10/17/2025 2:54 PM EST) POC pH, Arterial 7.37 7.35 - 7.45 10/17/2025 3:55 PM EST [facility] Blood, Arterial 10/17/2025 2 :54 PM EST 10/17/2025 3:55 PM EST Vani Winkler MD POINT OF CARE TEST ORDERABLE S Final Result Performing Organization Address City/[facility]/ZIP Co de Phone Number [facility] [address] * (ABNORMAL) POC INR (10/17/2025 2:53 PM EST) Prothrombin Time INR, POC 2.4(H) 0.8 - 1.4 10/18/2025 12:07 AM EST [facility] Comment: Test results may vary [...] ORDERABLE S Final Result Performing Organization Address City/[facility] Co de Phone Number [facility] [address]. [address] * Routine Culture plus Stain (Surgical Swab) (10/17/2025 2:50 PM EST) Gram Stain Result Rare Polymorphonuclear Leukocytes Seen [facility] Gram Stain Result No Organisms Seen; [facility] Culture Result No Growth After 3 Days [facility] Surgical Swab PERITONEAL FLUID / Unknown 10/17/2025 2:50 PM EST Comment:1. Ascites-anaerobic , aerobic, and fungal Narrative [facility] - 10/20/2025 11:09 AM EST 1. Ascites-anaerobic, aerobic, and fungal 1. Ascites-anaerobic, aerobic, and fungal Vani Winkler MD MICROBIOLOGY - GENERAL ORDER MARYA Final Result Performing Organization Address [facility] Co de Phone Number [facility] [address] [facility] * Anaerobic culture (Surgical Swab) (10/17/2025 2:50 PM EST) Culture Result No Anaerobes Isolated in 5 Days [facility] Surgical Swab PERITONEAL FLUID / Unknown 10/17/2025 2:50 PM EST Comment:1. Ascites-anaerobic , aerobic, and fungal Narrative [facility] - 10/22/2025 11:32 AM EST 1. Ascites-anaerobic, aerobic, and fungal 1. Ascites-anaerobic, aerobic, and fungal Vani Winkler MD MICROBIOLOGY - GENERAL ORDER MARYA Final Result Performing Organization Address City/[facility] Co de Phone Number [facility] [address] [facility]. [address] * (ABNORMAL) TEG-Standard Global Hemostasis (Rapid TEG with Heparin Effect, Contains a Baseline TEG) (10/17/2025 10:19 AM EST) Citrated Kaolin Reaction Time (TEGHEPARINASE) 7.2 4.6 - 9.1 minutes 10/17/2025 11:27 AM EST [facility] Citrated Rapid Teg Maximum Amplitude (TEGHEPARINASE) <40.0(L) 52.0 - 70.0 mm 10/17/2025 11:27 AM EST [facility] Citrated Functional Fibrinogen Maximum Amplitude (TEGHEPARINASE) 5.8(L) 15.0 - 32.0 mm 10/17/2025 11:27 AM EST [facility] Citrated Kaolin W/Heparinase Reaction Time (TEGHEPARINASE) 6.7 4.3 - 8.3 minutes 10/17/2025 11:27 AM [facility] Citrated Kaolin K-Time (TEGHEPARINASE) 2.9(H) 0.8 - 2.1 minutes 10/17/2025 11:27 AM [facility] Citrated Kaolin Angle (TEGHEPARINASE) 64.4 63.0 - 78.0 degrees 10/17/2025 11:27 AM [facility] Citrated Kaolin Maximum Amplitude (TEGHEPARINASE) <40.0(L) 52.0 - 69.0 mm 10/17/2025 11:27 AM [facility] Citrated Functional Fibrinogen- Fibrinogen Level (TEGHEPARINASE) 156.5(L) 278.0 - 581.0 mg/dL 10/17/2025 11:27 AM [facility] Whole Blood (Citrate) 10/17/2025 10:19 AM EST 10/17/2025 10:46 AM EST [facility] BLOOD ORDERABLES Final Re sult [facility] [address] * Hepatitis C RNA, Quant Reflex to Genotyp (10/17/2025 10:19 AM EST) International Units Not Detected IU/mL 10/19/2025 2:12 PM EST [facility] Comment:Test methodology for HCV RNA quantification is an FDA-approved nucleic acid amplification assay. The Lower Limit of Quantitation (LLOQ) is 15 IU/mL. The linear range of the assay is 15-100,000,000 IU/mL. The Limit of Detection (LoD) is 12.0 IU/mL for EDTA plasma. The reference range is Not Detected. IU log10 See Note log 10 IU/mL 10/19/2025 2:12 PM EST [facility] Comment:HCV RNA not detected . Plasma 10/17/2025 10:1 9 AM EST 10/17/2025 11:09 AM EST [facility] BLOOD ORDERABLES Final Re sult Performing Organization Address City/[facility]/ZIP Co de Phone Number [facility] [address] [facility]. [address] * (ABNORMAL) APTT, No Anticoagulant (10/17/2025 10:19 AM EST) aPTT 41.2(H) 25.5 - 35.0 seconds 10/17/2025 11:02 AM EST [facility] Plasma 10/17/2025 10:1 9 AM EST 10/17/2025 10:46 AM EST [facility] BLOOD ORDERABLES Final Re sult Performing Organization Address [facility] Co de Phone Number [facility] [address] [facility]. [address] * (ABNORMAL) Fibrinogen (10/17/2025 10:19 AM EST) Fibrinogen 116(L) 218 - 406 mg/dL 10/17/2025 11:08 AM EST [facility] Plasma 10/17/2025 10:1 9 AM EST 10/17/2025 10:46 AM EST [facility] BLOOD ORDERABLES Final Re sult Performing Organization Address City/[facility] Co de Phone Number [facility] [address] [facility]. [address] * Magnesium, STAT (10/17/2025 10:18 AM EST) Magnesium 1.7 1.5 - 2.5 mg/dL 10/17/2025 11:46 AM EST [facility] Plasma 10/17/2025 10:1 8 AM EST 10/17/2025 10:46 AM EST Kassi INTERIANO LAB BLOOD ORDERABLES Final Re sult Performing Organization Address City/[facility] Co de Phone Number [facility] [address] * (ABNORMAL) Jose-Mims Virus VCA IgG Ab (10/17/2025 10:18 AM EST) Pathologist [facility] EBV VCA IgG Positive( A) Negative 10/17/2025 12:18 PM EST [facility] Comment:Presence of detectab le VCA IgG antibodies. A positive result indicates current or past exposure to Jose-Mims virus. EBV IGG NUM >750.00(H ) 0.00 - 17.99 U/mL 10/17/2025 12:18 PM EST [facility] Serum 10/17/2025 10:1 8 AM EST 10/17/2025 10:46 AM EST Kassi INTERIANO LAB BLOOD ORDERABLES Final Re sult Performing Organization Address City/[facility] Co de Phone Number [facility] [address] [facility]. [address] * CMV IgG Antibody (10/17/2025 10:18 AM EST) Pathologist [facility] CMV IgG Negative Negative 10/17/2025 12:16 PM EST [facility] CMV IGG NUM <0.20 0.00 - 0.59 U/mL 10/17/2025 12:16 PM EST [facility] Serum 10/17/2025 10:1 8 AM EST 10/17/2025 10:46 AM EST Kassi INTERIANO LAB BLOOD ORDERABLES Final Re sult [facility] [address] * HIV 1+2 Antibody/Antigen with Reflex (10/17/2025 10:18 AM EST) HIV 1+2 AB/AGN Nonreactive Nonreactive 10/17/2025 12:16 PM EST [facility] Serum 10/17/2025 10:1 8 AM EST 10/17/2025 10:46 AM EST Narrative [facility] - 10/17/2025 12:16 PM EST \HIVRNR Kassi INTERIANO LAB BLOOD ORDERABLES Final Re sult Performing Organization Address [facility] Co de Phone Number [facility] [address] * Hepatitis B Core Antibody (10/17/2025 10:18 AM EST) Hep B Core Total Ab Nonreactive Nonreactive 10/17/2025 12:17 PM EST [facility] Comment:Health Department no tified in accordance with reportable infectious disease guidelines. Serum 10/17/2025 10:1 8 AM EST 10/17/2025 10:46 AM EST Narrative [facility] - 10/17/2025 12:17 PM EST A nonreactive final interpretation indicates that anti-HBc antibodies were not detected in the sample; it is possible that the individual is not infected with HBV. Kassi INTERIANO LAB BLOOD ORDERABLES Final Re sult Performing Organization Address City/[facility]/ZIP Co de Phone Number [facility] [address] [facility]. [address] * Hepatitis C Antibody (10/17/2025 10:18 AM EST) HCV Ab Nonreactive Nonreactive 10/17/2025 12:25 PM EST [facility] Comment:Health Department no tified in accordance with reportable infectious disease guidelines. Serum 10/17/2025 10:1 8 AM EST 10/17/2025 10:46 AM EST [facility] - 10/17/2025 12:25 PM EST Antibodies to HCV not detected; does not exclude the possibility of exposure to HCV. Kassi Inman PA LAB BLOOD ORDERABLES Final Re sult [facility] [address] [facility]. [address] * (ABNORMAL) Hepatitis B Surface Antibody, Quantitati (10/17/2025 10:18 AM EST) Hep B S Ab Reactive( A) Nonreactive 10/17/2025 12:29 PM EST [facility] HBSAB NUMBER 260.00(H) 0.00 - 7.99 mIU/mL 10/17/2025 12:29 PM EST [facility] Serum 10/17/2025 10:1 8 AM EST 10/17/2025 10:46 AM EST [facility] - 10/17/2025 12:29 PM EST Individual is considered immune to HBV infection. [facility] LAB BLOOD ORDERABLES Final Re sult Performing Organization Address [facility] Co de Phone Number [facility] [address] * Hepatitis B surface antigen (10/17/2025 10:18 AM EST) Hep B Surface Ag Nonreactive Nonreactive 10/17/2025 12:21 PM EST [facility] Comment:Health Department no tified in accordance with reportable infectious disease guidelines. Serum 10/17/2025 10:1 8 AM EST 10/17/2025 10:46 AM EST [facility] - 10/17/2025 12:21 PM EST Specimen is considered negative for HBsAg. [facility] BLOOD ORDERABLES Final Re sult [facility] [address] * Hepatitis A Antibody Total (10/17/2025 10:18 AM EST) Anti-HAV Total (IgG + IgM) Reactive 10/17/2025 12:22 PM EST [facility] Serum 10/17/2025 10:1 8 AM EST 10/17/2025 10:46 AM EST Narrative [facility] - 10/17/2025 12:22 PM EST HAV antibodies detected [facility] LAB BLOOD ORDERABLES Final Re sult [facility] [address] * Vitamin D 25 Hydroxy (10/17/2025 10:18 AM EST) Vit D, 25-Hydroxy 39.3 30.0 - 100.0 ng/mL 10/17/2025 12:15 PM EST [facility] Comment: Vitamin D deficiency has been defined by the [place] [employer] (IOM) and an Endocrine Society [...] 8 AM EST 10/17/2025 10:46 AM EST Kassisatya Inman [facility] LAB BLOOD ORDERABLES Final Re sult [facility] [address] * Antibody Screen (10/17/2025 10:18 AM EST) Antibody Screen Negative 10/17/2025 11:09 AM EST [facility] Blood 10/17/2025 10:1 8 AM EST 10/17/2025 10:26 AM EST Narrative [facility] - 10/17/2025 11:17 AM EST Testing performed by [facility] Transfusion Service Kassi INTERIANO BLOOD BANK TEST ORDERABLES Fi nal Result [facility] [address] [facility] * ABO/Rh (10/17/2025 10:18 AM EST) ABO Grouping A 10/17/2025 10:53 AM EST [facility] Rh Type Positive 10/17/2025 10:53 AM EST [facility] Blood 10/17/2025 10:1 8 AM EST 10/17/2025 10:26 AM EST Kassi INTERIANO BLOOD BANK TEST ORDERABLES Fi nal Result [facility] [address] * (ABNORMAL) Hepatic Function Panel (10/17/2025 10:18 AM EST) Total Bilirubin 4.9(H) 0.0 - 1.5 mg/dL 10/17/2025 11:47 AM EST [facility] Bilirubin, Direct 1.35(H) 0.00 - 0.40 mg/dL 10/17/2025 11:47 AM EST [facility] AST 39 13 - 39 U/L 10/17/2025 11:47 AM EST [facility] ALT 27 7 - 52 U/L 10/17/2025 11:47 AM EST [facility] Alkaline Phosphatase 143(H) 36 - 125 U/L 10/17/2025 11:47 AM EST [facility] Total Protein 6.5 6.4 - 8.9 g/dL 10/17/2025 11:47 AM EST [facility] Albumin 2.3(L) 3.5 - 5.7 g/dL 10/17/2025 11:47 AM EST [facility] Bilirubin, Indirect 3.55(H) 0.00 - 1.10 mg/dL 10/17/2025 11:47 AM EST [facility] Plasma 10/17/2025 10:1 8 AM EST 10/17/2025 10:46 AM EST Kassi INTERIANO LAB BLOOD ORDERABLES Final Re sult [facility] [address] [place] [address], [facility] * (ABNORMAL) Renal Function Panel w/EGFR (10/17/2025 10:18 AM EST) Sodium 141 133 - 146 mmol/L 10/17/2025 11:47 AM [facility] Potassium 3.3(L) 3.5 - [...] mmol/L 10/17/2025 11:47 AM EST [facility] BUN 13 7 - 25 mg/dL [...] mg/dL 10/17/2025 11:47 AM EST [facility] Albumin 2.3(L) 3.5 - 5.7 g/dL 10/17/2025 11:47 AM EST [facility] Osmolality, Calculated 291 278 - 305 mOsm/kg 10/17/2025 11:47 AM EST [facility] EGFR >90 10/17/2025 11:47 AM EST [facility] Comment: As of 2022, the [...] BLOOD ORDERABLES Final Re sult [facility] [address] [id number], [facility] * Hemoglobin A1C (10/17/2025 10:18 AM EST) Hemoglobin A1C 4.0 4.0 - 5.6 % 10/17/2025 1:42 PM EST [facility] Comment: Hemoglobin A1c Interpretation Guidelines: [...] BLOOD ORDERABLES Final Re sult [facility] [address] [facility] [place] [address], [facility] * (ABNORMAL) Venous Blood Gas, Line/Syringe, STAT (10/17/2025 10:18 AM EST) PH-Line Draw 7.37 7.32 - 7.42 10/17/2025 10:27 AM EST [facility] PCO2-Line Draw 46 41 - 51 [...] ORDERABLES Final Re sult Performing Organization Address [facility] Co de Phone Number [facility] [address] [facility]. [address] * (ABNORMAL) Protime-INR (10/17/2025 10:18 AM EST) Protime 21.7(H) 12.1 - 15.1 seconds 10/17/2025 11:01 AM EST [facility] INR 1.8(H) 0.9 - 1.1 10/17/2025 11:01 AM EST [facility] Comment: RECOMMENDED THERAPEUTIC RANGES USING INR : Stable oral anticoagulant therapy: 2.0 - 3.0 Mechanical prosthetic heart valve: 2.5 - 3.5 Recurrent acute myocardial infarction: 2.5 - 3.5 Plasma 10/17/2025 10:1 8 AM EST 10/17/2025 10:46 AM EST Kassi INTERIANO LAB BLOOD ORDERABLES Final Re sult Performing Organization Address City/[facility]/ZIP Co de Phone Number [facility] [address] [facility]. [address] * (ABNORMAL) Differential (10/17/2025 10:18 AM EST) Neutrophils Relative 45.0 40.0 - 80.0 % 10/17/2025 10:59 AM EST [facility] Lymphocytes Relative 34.7 15.0 - 45.0 % 10/17/2025 10:59 AM EST [facility] Monocytes Relative 12.9(H) 0.0 - 12.0 % 10/17/2025 10:59 AM EST [facility] Eosinophils Relative 6.4 0.0 - 8.0 % 10/17/2025 10:59 AM EST [facility] Basophils Relative 1.0 0.0 - 1.0 % 10/17/2025 10:59 AM EST [facility] nRBC 0 0 - 0 /100 WBC 10/17/2025 10:59 AM EST [facility] Neutrophils Absolute 1,845 1,520 - 8,640 /uL 10/17/2025 10:59 AM EST [facility] Lymphocytes Absolute 1,423 570 - 4,860 /uL 10/17/2025 10:59 AM EST [facility] Monocytes Absolute 529 0 - 1,296 /uL 10/17/2025 10:59 AM EST [facility] Eosinophils Absolute 262 0 - 864 /uL 10/17/2025 10:59 AM EST [facility] Basophils Absolute 41 0 - 108 /uL 10/17/2025 10:59 AM EST [facility] Whole Blood 10/17/2025 10:1 8 AM EST 10/17/2025 10:46 AM EST us Kassi INTERIANO LAB BLOOD ORDERABLES Final Re sult [facility] [address] * (ABNORMAL) CBC (10/17/2025 10:18 AM EST) WBC 4.1 3.8 - 10.8 10E3/uL 10/17/2025 10:59 AM EST [facility] RBC 3.32(L) 4.20 - 5.80 10E6/uL 10/17/2025 10:59 AM EST [facility] Hemoglobin 11.2(L) 13.2 - 17.1 g/dL 10/17/2025 10:59 AM [facility] Hematocrit 32.9(L) 38.5 - 50.0 % 10/17/2025 10:59 AM [facility] MCV 99.1 80.0 - 100.0 fL 10/17/2025 10:59 AM EST [facility] MCH 33.8(H) 27.0 - 33.0 pg 10/17/2025 10:59 AM [facility] MCHC 34.1 32.0 - 36.0 g/dL 10/17/2025 10:59 AM [facility] RDW 17.3(H) 11.0 - 15.0 % 10/17/2025 10:59 AM EST [facility] Platelets 61(L) 140 - 400 10E3/uL 10/17/2025 10:59 AM EST [facility] MPV 8.2 7.5 - 11.5 fL 10/17/2025 10:59 AM EST [facility] Whole Blood 10/17/2025 10:1 8 AM EST 10/17/2025 10:46 AM EST Kassi INTERIANO LAB BLOOD ORDERABLES Final Re sult Performing Organization Address [facility] Co de Phone Number [facility] [address] [facility]. [address] * Toxoplasma gondii Antibody, IgG (10/17/2025 10:18 AM EST) Toxoplasma Gondii IgG <3.0 0.0 - 7.1 IU/mL 10/18/2025 4:54 AM EST [facility] Comment: Negative <7.2 Equivocal 7.2 - 8.7 Positive >8.7 Serum 10/17/2025 10:1 8 AM EST 10/18/2025 5:06 AM EST Narrative [facility] - 10/18/2025 5:06 AM EST PERFORMED AT: [facility] [id number] STRAIGHT EDGER: Mateo Miller, PhD PHONE: [phone] Kassi INTERIANO LAB BLOOD ORDERABLES Final Re sult Performing Organization Address City/[facility] Co de Phone Number [facility] [address] [facility]. [address] * X-ray Portable Chest (10/17/2025 10:11 [...] Diagnoses Not on filedocumented in this encounter Administered Medications Inactive Administered Medications - up to 3 most recent administrations Medication Order MAR Action Action Date Dose Rate Site acetaminophen (TYLENOL) tablet 975 mg 975 mg, Oral, Every 8 hours, First dose on Wed10/20/25 at 0730 Given 10/22/2025 8:42 AM EST 975 mg Given 10/21/2025 4:20 PM EST 975 mg Given 10/21/2025 6:28 AM EST 975 mg acyclovir (ZOVIRAX) tablet 800 mg 800 mg, Oral, 2 times daily, First dose on Wed10/19/25 at 1500 Given 10/22/2025 9:49 AM EST 800 mg Given 10/21/2025 8:02 PM EST 800 mg Given 10/21/2025 11:16 AM EST 800 mg dextrose 10%-water (D10W) IV soln 12.5 g, [...] grams or 250 mL for 25 grams. furosemide (LASIX) tablet 40 mg 40 mg, Oral, Daily, First dose on Wed10/22/25 at 0930 Given 10/22/2025 11:08 AM EST 40 mg heparin (porcine) 1,000 unit/mL 10,000 Units in sodium chloride 0.9 % 1,000 mL IRRIGATION As needed, Starting on Wed10/17/25 at 1454, Intra-op Given 10/17/2025 2:54 PM EST 10,000 Units heparin (porcine) injection 5,000 Units 5,000 Units, Subcutaneous, Every 8 hours scheduled (3 times per day), First dose on Wed10/17/25 at 1000, On hold since Wed10/18/2025 at 2347 until manually unheld Given 10/18/2025 8:32 PM EST 5,000 Units Left Arm Given 10/18/2025 3:14 PM EST 5,000 Units A bdominal Tissue Given 10/18/2025 5:07 AM EST 5,000 Units R ight Anterior Thigh insulin lispro (humaLOG/ADMELOG) injection 0-12 Units 0-12 Units, Subcutaneous, 3 times daily before meals, First dose on Wed10/19/25 at 1830, HIGH ALERT MEDICATION Given 10/21/2025 5:07 PM EST 4 Units Left Arm Given 10/21/2025 1:23 PM EST 2 Units Le ft Arm Given 10/20/2025 5:58 PM EST 2 Units Le ft Arm lactated ringers irrigation solution As needed, Starting on Wed10/17/25 at 1502, Intra-op Given 10/17/2025 3:02 PM EST 4,000 mLs methocarbamoL (ROBAXIN) tablet 500 mg 500 mg, Oral, 4 times a day, First dose on 10/20/25 at 1300 Given 10/22/2025 8:43 AM EST 500 mg Given 10/21/2025 8:02 PM EST 500 mg Given 10/21/2025 4:20 PM EST 500 mg mycophenolate (CELLCEPT) capsule 500 mg 500 mg, [...] Given 10/22/2025 1:48 PM EST 30 mg oxyCODONE (ROXICODONE) immediate release tablet 2.5 mg [...] on 10/21/25 at 0600, Do Not Crush Given 10/22/2025 5:44 AM EST 40 mg Given 10/21/2025 6:28 AM EST 40 mg predniSONE (DELTASONE) tablet 20 mg 20 mg, Oral, Daily, First dose on Maris 10/25/25 at 0900, Start daily PO dose on POD #8 predniSONE (DELTASONE) tablet 25 mg 25 mg, Oral, Once, On Wed10/24/25 at 0900, For 1 dose, POD #7 predniSONE (DELTASONE) tablet 30 mg 30 mg, Oral, Once, On Tu10/23/25 at 0900, For 1 dose, POD #6 sodium chloride 0.9 % irrigation As needed, Starting on Wed10/17/25 at 1453, Intra-op Given 10/17/2025 7:00 PM EST 1,000 mLs Given 10/17/2025 2:53 PM EST 3,000 mLs sterile water irrigation As needed, Starting on Wed10/17/25 at 1501, Intra-op Given 10/17/2025 3:01 PM EST 2,000 mLs sulfamethoxazole-trimethoprim (BACTRIM) 400-80 mg per tablet 1 tablet 1 tablet, Oral, Daily, First dose on 10/20/25 at 2100 Given 10/22/2025 8:42 AM EST 1 tablet Given 10/21/2025 8:20 AM EST 1 tablet Given 10/20/2025 8:23 PM EST 1 tablet tacrolimus (PROGRAF) capsule 3 mg 3 mg, Oral, 2 times daily, First dose (after last modification) on 10/21/25 at 0900, LEVEL 2 HAZARDOUS MEDICATION Given 10/22/2025 9:48 AM EST 3 mg Given 10/21/2025 8:02 PM EST 3 mg Given 10/21/2025 8:20 AM EST 3 mg documented in this encounter Active and [...] at 1500 0933 (Given - Provider: Stacy Zamorano, SILVIO)2013 (Given - Provider: Anne Vail RN) 1116 (Given - Provider: Stacy Zamorano, SILVIO)2001 (Given - Provider: Anne Vail RN) 0949 [...] Ji RN)1220 (New Bag - Provider: Charbel Ji, SILVIO) furosemide (LASIX) tablet 40 mg 40 mg, Oral, Daily, First dose on Wed10/22/25 at 0930 1108 (Given - Provider: Charbel Ji, SILVIO) heparin (porcine) injection 5,000 Units 5,000 Units, [...] ALERT MEDICATION 0927 (Given - Provider: Stacy Zmaorano RN)1431 (Given - Provider: Carlos Saldana RN)1758 [...] at 1300 1346 (Given - Provider: Stacy Zamorano, SILVIO)1714 (Given - Provider: Stacy Zamorano RN)2013 (Given [...] on Wed10/22/25 at 1300, DO NOT CRUSH 1348 (Given [...] Vail RN) 0948 (Given - Provider: Charbel Ji RN) PRN Medication Order 10/20/2025 10/21/2025 10/22/2025 [...] documented as of this encounter Care Teams Syrup Mixer Relationship Specialty Start Date End Date System, Provider Not In PCP - General 09/10/25 documented as of this encounter
--- OUTSIDE RECORDS SUMMARY | 2025-10-17 13:37 | XMS_ITS | Encounter Summary ---
Author Organization [facility] Address [address] [place] [address] Care Team Providers Care Ham Smoker Name Role Phone System, Provider Not In [...] release of HIV test results or diagnoses. [id number] Reason for Visit * Auth/Cert (Routine) Specialty Diagnoses / Procedures Referred By Gianna t Referred To Contact Diagnoses TRANSPLANT LIVER Procedures TRANSPLANT LIVER [facility] [address] [place] [address] Phone: tel: Referral ID Status Reason Start Date Expiration Date Visits Re quested Visits Authorized [id number] 1 1 Encounter Details Date Type Department Care Team (Late st Contact Info) Description 10/17/2025 1:37 PM EST Anesthesia Event [facility] [address] [place] [address] Oskar Torres MD [address] [place] [address] Ann Blackwell MD [address] [place] [address] Anesthesia Record Procedure Summary Procedure Name Responsible Anesthesiologist Anesthesia Start Time Anesthesia Stop Time TRANSPLANT LIVER (Abdomen) Oskar Torres MD 10/17/25 1337 10/17/25 2245 Events Date Time Event Comment 10/17/2025 1230 1337 An Start 1337 An Start Data 1349 An Induction 1350 An Intubation 1446 Time Out 1716 Provider Handoff Type of Ane sthetic: {Type of Anesthesia:2408215655} Airway: Type: {Airway:9198098869} Difficult BMV / Intubation: {YES/NO WITH YES WILDCARD:34887217} Vascular Access: {Vascular Access:7110290976} Monitors: {Monitor:0547335011} Patient Specific Management Goals: {yes/no :39129740} Outstanding Issues to Address: {Outstanding Issues:1921881689} Disposition: {Disposition:8921634231} 1723 Anhepatic Phase 1745 Quick Note IVC [...] sodium chloride 0.9% 1 00 mL IVPB (Ygtc5Yib) 6 g cefTRIAXone (ROCEPHIN) 2 g in [...] Per order 10/17/25 0000 by Karen Washington, FITNESS WORKER 10/18/25 0800 by Angela Tamez RN Peripheral [...] 1436 by Slade Owusu, 10/19/25 1230 by Angeal Tamez RN Peripheral IV 14 G ; [...] any time in the past 12 m [facility], were you homeless or living in a fci (including now)? No 10/17/2025 Utilities Answer Date [...] 12 Temp: 98.2 ??F (36.8 ??C) TempSrc: [place] SpO2: 98% 99% 98% 95% Weight: Height: Last Temperature: 98.2 ??F (36.8 ??C) (10/19/2025 4:00 AM) Complications: There were no known notable events for this encounter. documented in this encounter H&P Notes * Slade Munoz MD - 10/17/2025 11:22 AM EST [facility] DEPARTMENT OF ANESTHESIOLOGY PRE-PROCEDURAL EVALUATION David Pop [...] a power mower. Hypertension is. (-) past UT, CAD, cardiomyopathy, CABG/stent, dysrhythmias, angina, CHF. Neuro/Muscoloskeletal/Psych: [...] Resource Strain: Low Risk (06/15/2025) Received from [facility] Overall Financial Resource Strain (CARDIA) How hard is it for you to pay for the very basics like food, housing, medical care, and heating?: Not hard at all Food Insecurity: No Food Insecurity (06/15/2025) Received from [facility] Hunger Vital Sign Within the past 12 months, you worried that your food would run out before you got the money to buymore.: Never true Within the past 12 months, the food you bought just didn't last and you didn't have money to get more.: Never true Transportation Needs: No Transportation Needs (06/15/2025) Received from [facility] PRAPARE - Transportation In the past 12 months, has lack of transportation kept you from medical appointments or from getting medications?: No In the past 12 months, has lack of transportation kept you from meetings, work, or from getting things needed for daily living?: No Physical Activity: Inactive (06/15/2025) Received from [facility] Exercise Vital Sign On average, how many days per week do you engage in moderate to strenuous exercise (like a brisk walk)?: 0 days On average, how many minutes do you engage in exercise at this level?: 0 min Stress: No Stress Concern Present (06/15/2025) Received from [facility] [employer] [employer] - Occupational Stress Questionnaire Do you feel stress - tense, restless, nervous, or anxious, or unable to sleep at night because yourmind is troubled all the time - these days?: Only a little Social Connections: Socially Integrated (06/15/2025) Received from [facility] Social Connection and Isolation Panel In a typical week, how many times do you talk on the phone with family, friends, or neighbors?: More than three times a week How often do you get together with friends or relatives?: More than three times a week How often do you attend jew or protestant services?: More than 4 times per year Do you belong to any clubs or organizations such as jew groups, unions, [employer] or athletic groups, or school groups?: Yes [...] agreed to the planabove. Slade Munoz MD, [facility] Department of Anesthesiology [1] Allergies Allergen Reactions [...] Procedure: Insert arterial line Slade Munoz MD, [facility] Department of Anesthesiology * Slade Owusu DO [...] Orourke MD - 10/17/2025 2:15 PM EST Slade Munoz MD 10/19/2025 9:29 AM Insert Arterial [...] tape, sterile dressing applied and sutured Result [facility] Slade Munoz MD IV THERAPY ORDERABLES Final [...] Admitted) 10/17/25 0700 - 10/18/25 0659 Shift 9909-8702 0354-3169 24 Hour Total 6453-8443 2854-0283 4750-3909 24 Hour Total INTAKE I.V. 8000(80.2) 8000(80.2) [...] in sodium chloride 0.9% 100 mL IVPB (Coph4Sah)) 100 200 300 Volume (mL) (albumin human bottle 5%) 500 500 Volume (mL) (albumin human bottle 25%) 50 50 Volume (mL) (cefTRIAXone (ROCEPHIN) 2 g in sodium chloride 0.9% 20 mL IV Push) 20 20 Shift Total(mL/kg) 120(1.2) 41656(138.3) 83120(139.5) OUTPUT Urine 1850 1850 Urine 1850 1850 Urine Occurrence 1 x 1 x Blood 69882 67025 Est Blood Loss 84046 94129 Shift Total(mL/kg) 86653(128.8) 62537(128.8) Weight (kg) 99.8 99.8 99.8 99.8 documented [...] in sodium chloride 0.9% 100 mL IVPB (Owjh7Gxi) 2 g, Intravenous, at 200 mL/hr, Once, On Wed10/17/25 at 1000, For 1 dose, Begin infusion 20-60 minutes prior to incision Use Rasp1Vig Adapter - Mix Thoroughly Before Administration, Pre-op [...] documented as of this encounter Care Teams Ham Smoker Relationship Specialty Start Date End Date System, Provider Not In PCP - General 09/10/25 documented as of this encounter
--- OUTSIDE RECORDS SUMMARY | 2025-10-24 07:21 | XMS_ITS | Encounter Summary ---
Author Organization Healthcare Address [address] [place] [address] Care Team Providers Care Property Loss Insurance Claim Adjuster Name Role Phone Ruma Hernández GUN FITTER Unavailable [phone] Chris Medel MD Primary Care Provider [phone] Encounter Details Date Type Department Care Team (Late st Contact Info) Description 07/05/2025 Results Follow-Up [facility] [address] [place] [id number] Meaghan Le, RN [facility] L[facility] [id number] [address] [place] [address] Social History Tobacco Use Types Packs/Day Years [...] you attend [facility] or hindu services? More than 4 times per year 02/19/2025 Do you belong to any clubs o r organizations such as advent groups, unions, [employer] or athletic groups, or school groups? Yes [...] How often do you attend chur or hindu services? More than 4 times [...] and heating? Not hard at all 06/15/2025 [facility] - Occupational Stress Questionnaire Answer [...] drink first t luisa in the morning (EYE-PAVER OPERATOR) to steady your nerves or to get rid of a hangover? 0 06/14/2025 CAGE Questionnaire Score 0 025 Utilities Answer Date Recorded In the past 12 months has th [employer], gas, oil, or water test company threatened to shut off services in [...] [facility], [address] [place] [address] Suhail Brock MD [address] [place] [address] 12/12/2025 8:30 AM EST Clinical Support [facility] [address] [place] [address] 12/12/2025 10:00 AM EST Office Visit [facility] [address] [place] [address] Portia Maguire MD [address] [place] [address] documented as of this encounter Visit Diagnoses [...] documented as of this encounter Care Teams Property Loss Insurance Claim Adjuster Relationship Specialty Start [place] [id number] PCP - General 03/14/25 Ruma Hernández APRN [address] [facility] [address] [place] [address] Referring Physician Gastroenterology 07/30/23 documented as of this encounter
--- OUTSIDE RECORDS SUMMARY | 2025-10-24 07:22 | XMS_ITS | Encounter Summary ---
Author Organization [facility] Address [address] [place] [address] Care Team Providers Care Mounter Flutes And Piccolos Name Role Phone System, Provider Not In [...] release of HIV test results or diagnoses. [id number] Reason for Visit * Reason Comments Transitions Of Care Encounter Details Date Type Department Care Team (Late st Contact Info) Description 10/18/2025 Pharmacy Services [facility] at [address] [phone] Dory Hannah RPh Social History Tobacco Use Types Packs/Day Years [...] money to buy more. Never true 10/17/20 Within the past 12 months, t he [...] in a care home (including now)? No 10/17/2025 Utilities Answer [...] Peripheral Vascular (WDL) X 10/22/2025 8:00 AM Karolyn Cheatham RN * Question Answer Date of Assessment Author Anti-Embolism Devices Bilateral;Sequenti al compression devices, below knee 10/22/2025 12:00 PM Karolyn Cheatham RN Anti-Embolism Intervention Off 10/22/2025 12:00 PM Karolyn Cheatham RN documented as of this encounter Progress Notes * Dory Hannah, [facility] - 10/18/2025 8:35 AM EST Transitions of Care Patient's prescriptions were sent to [facility]charge [facility] for a Transplant benefits review. David Pop received a Liver Transplant on 10/17/25 at [facility]. The patient's discharge medications were sent to [facility] for anticipated dischargeof 10/22/25. The patient has a [employer] commercial insurance plan to cover prescriptions. Currently, the patient'sco-pay for all medications is listed below: Acetaminophen 325 mg - $4.00 Acyclovir 800 mg - $0.00 Alcohol swabs - $4.00 Eliquis $0.00 Furosemide - $0.00 Insulin lispro - $0.00 Methocarbamol 500 mg - $0.00 Mycophenolate 250 mg - $0.00 Nifedipine - $0.00 Oxycodone - $0.00 Oystershell Calcium + Vit D - $4.06 Miralax Powder - $0.00 Pantoprazole - $0.00 Potassium chloride - $0.00 Phospha - $0.00 Prednisone - $0.00 Senna-docusate - $3.79 Sulfamethoxazole - Trimethoprim 400-80 mg - $0.00 Tacrolimus 1 mg - $0.00 AccuChek Meter - $0.00 AccuChek Test Strips - $0.00 AccuChek Lancets - $0.00 Pen needles - $0.00 David Pop's total cost of discharge prescriptions is currently $15.85. This total is subject to change with the addition or change in any of the prescriptions sent to [facility] Discharge [facility]. Medication Discharge Service will deliver all medications that they are able to fill to patient's bedside prior to discharge from hospital. Transplant team will provide education to the patient priorto discharge from the hospital. The patient has been referred to the [facility] Transplant Team. The patient should visit Medication Access for assistance if problems arise with the prescriptions. If questions arise regarding discharge medications, please call [phone]. Rosario Hannah PharmD Transitions of Care Pharmacist [phone] documented in this encounter Plan of Treatment Not on file documented as of this encounter Visit Diagnoses Not on filedocumented in this encounter Additional Health Concerns Assessment Noted Time PHQ-9 Depression Total Score: 8 09/10/20 11:09 AM EDT documented as of this encounter Care Teams Mounter Flutes And Piccolos Relationship Specialty Start Date End Date System, Provider Not In PCP - General 09/10/25 documented as of this encounter
--- OUTSIDE RECORDS SUMMARY | 2025-10-24 07:22 | XMS_ITS | Encounter Summary ---
Author Organization [facility] Address [address] [place] [address] Care Team Providers Care Custom Ski Maker Name Role Phone System, Provider Not [...] release of HIV test results or diagnoses. [id number] Reason for Visit * Reason Comments Appointment Advice Only Encounter Details Date Type Department Care Team (Late st Contact Info) Description 10/17/2025 Telephone [facility] Kidney Transplant at [address] [phone] Lore Burgos MA Appointment; Advice Only Social History Tobacco Use Types Packs/Day Years [...] [place] [facility] (including [facility])? No 10/17/2025 Utilities Answer Date [...] of Assessment Author Peripheral Vascular (WDL) X 10/17/2025 10:40 PM Kira Chandler RN Anti-Embolism Devices Bilateral;Sequenti al compression devices, below knee 10/18/2025 8:00 AM Angela Del Cid RN Anti-Embolism Intervention On 10/18/2025 8:00 AM Angela Del Cid RN [...] does not drink 10/17/2025 11:44 PM Kira Chandler, RN Q3: How often do you have six or more drinks on one occasion? Never 10/17/2025 11:44 PM Kira Chandler R N documented as of this encounter Progress Notes * Lore Burgos MA - 10/17/2025 3:48 PM EST calling to cancel appointment with Dr. Castellon and will need to reschedule do to being in the hospital Please call Stacy at [phone] documented in this encounter Plan of Treatment Not on file documented as of this encounter Visit Diagnoses Not on filedocumented in this encounter Additional Health Concerns Assessment Noted Time PHQ-9 Depression Total Score: 8 09/10/20 11:09 AM EDT documented as of this encounter Care Teams Custom Ski Maker Relationship Specialty Start Date End Date System, Provider Not In PCP - General 09/10/25 documented as of this encounter
--- OUTSIDE RECORDS SUMMARY | 2025-10-24 07:22 | XMS_ITS | Encounter Summary ---
Author Organization [facility] Address [address] [place] [address] Care Team Providers Care Windows Phone Developer Name Role Phone Ruma Hernández BLUEPRINTING AND PHOTOCOPY SUPERVISOR Unavailable [phone] Chris Medel MD Primary Care Provider [phone] Encounter Details Date Type Department Care Team (Late st Contact Info) Description 10/09/2025 Results Follow-Up [facility] Transplant Center [address] [place] [phone] Meaghan Le, RN [id number] [address] [place] [address] Social History Tobacco Use Types Packs/Day Years [...] 02/19/2025 How often [facility] you [facility]? More than 4 times per year 02/19/2025 Do you belong to any clubs o r organizations such as islam groups, unions, naayaternal or athletic groups, or school groups? Yes [...] hard at all 06/15/2025 [facility] - Occupational Stress Questionnaire Answer Date Recorded [...] drink first t luisa in the morning ([employer] GUIDE) to steady your nerves or to get rid of a hangover? 0 06/14/2025 CAGE Questionnaire Score 0 025 Utilities Answer Date Recorded In the past 12 months has th e [employer], gas, oil, or water [employer] threatened to shut off services in [...] Encounter Note - Portia Maguire MD - 10/10/2025 3:25 PM EST MELD 3.0: 20 at 10/08/2025 12:00 AM MELD-Na: 19 at 10/08/2025 12:00 AM Calculated from: Serum Creatinine: 0.7 mg/dL (Using min of 1 mg/dL) at 10/08/2025 12:00 AM Serum Sodium: 135 mEq/L at 10/08/2025 12:00 AM Total Bilirubin: 4.2 mg/dL at 10/08/2025 12:00 AM Serum Albumin: 2.3 g/dL at 10/08/2025 12:00 AM INR(ratio): 1.59 at 10/08/2025 12:00 AM Age at listin years Sex: Male at 10/08/2025 12:00 AM * Result Encounter Note - Meaghan Le RN - 10/09/2025 7:23 AM EST Monthly labs/MELD update documented in this encounter Plan of Treatment Upcoming Encounters Date Type Department Care Team (Late st Contact Info) Description 11/27/2025 3:45 PM EST Office Visit Medical Office Building Urology [address], [address] [place] [phone] Suhail Brock MD [address] [facility] [address] [place] [address] 12/12/2025 8:30 AM EST Clinical Support [facility] Transplant Center [address] [facility] [address] [place] [phone] 12/12/2025 10:00 AM EST Office Visit [facility] Transplant [place] [address] [facility] [address] [place] [address] Portia Maguire MD [address] [place] [phone] documented as of this encounter Visit Diagnoses [...] documented as of this encounter Care Teams Windows Phone Developer Relationship Specialty [place] [address] PCP - General 03/14/25 Ruma Hernández APRN [address] [facility] [address] [place] [address] Referring Physician Gastroenterology 07/30/23 documented as of this encounter
--- OUTSIDE RECORDS SUMMARY | 2025-10-24 07:22 | XMS_ITS | Encounter Summary ---
Author Organization [facility] Address [address] [place] [address] Care Team Providers Care Forest Worker Name Role Phone System, Provider Not [...] release of HIV test results or diagnoses. [id number] Health Encounter Details Date Type Department Care Team (Late st Contact Info) Description 10/18/2025 Chart Note [facility] Liver Transplant at [address] [phone] Rosangela Lewis, RN I have verified that the donor serologies entered in [employer] match the donor Social History Tobacco Use Types Packs/Day Years [...] any time in the past 12 m [facility], were you homeless or [...] Vascular Question Answer Date of Assessment Author Anti-Embolism Devices Bilateral;Sequenti al compression devices, below knee 10/18/2025 12:00 AM Kira Chandler RN Anti-Embolism Intervention On 10/18/2025 12:00 AM Kira Chandler, RN documented as of this encounter Progress Notes * Rosangela Lewis RN - 10/18/2025 2:24 AM EST I have verified that the donor serologies entered in [facility] match the donor serologies that are listed in [facility]. documented in this encounter Plan of Treatment Not on file documented as of this encounter Visit Diagnoses Not on filedocumented in this encounter Additional Health Concerns Assessment Noted Time PHQ-9 Depression Total Score: 8 09/10/20 25 11:09 AM EDT documented as of this encounter Care Teams Forest Worker Relationship Specialty Start Date End Date System, Provider Not In PCP - General 09/10/25 documented as of this encounter
--- OUTSIDE RECORDS SUMMARY | 2025-10-24 07:22 | XMS_ITS | Encounter Summary ---
Author Organization [facility] Address [address] [place] [address] Care Team Providers Care Sonography Technician Name Role Phone System, Provider Not [...] release of HIV test results or diagnoses. [id number] Health Encounter Details Date Type Department Care Team (Latest Contact Info) Description 10/17/2025 Travel Social History Tobacco Use Types Packs/Day [...] living in a residential (including now)? No 10/17/2025 Utilities Answer Date [...] Assessment Author Peripheral Vascular (WDL) X 10/17/2025 10:4 0 PM Kira Chandler RN * Question Answer Date of Assessment Author Anti-Embolism Devices Bilateral;Sequenti al compression devices, below knee 10/17/2025 10:40 PM Kira Chandler RN Anti-Embolism Intervention On 10/17/2025 10:40 PM Kira Chandler RN * AUDIT-C Score Answer Date of [...] R N documented as of this encounter Plan of Treatment Not on file documented as of this encounter Visit Diagnoses Not on filedocumented in this encounter Additional Health Concerns Assessment Noted Time PHQ-9 Depression Total Score: 8 09/10/20 11:09 AM EDT documented as of this encounter Care Teams Sonography Technician Relationship Specialty Start Date End Date System, Provider Not In PCP - General 09/10/25 documented as of this encounter
--- OUTSIDE RECORDS SUMMARY | 2025-10-24 07:22 | XMS_ITS | Clinical Summary ---
Author Organization [facility] Address [address] [place] [id number] Care Team Providers Care Captain Fishing Vessel Name Role Phone System, Provider Not In [...] therelease of HIV test results or diagnoses. [id number] Allergies Active Allergy Reactions Criticality Noted Date Comments Lisinopril Other (See Comments) Low 09/15/2021 Medications acyclovir (ZOVIRAX) 400 MG tablet Take 2 tablets (800 mg total) by mouth 2 times a day. 120 tablet 5 3:31 PM EST 10/18/20 25 Active polyethylene glycol (GLYCOLAX) 17 gram/dose powder Mix 1 capful (17 g) in 8 ounces of fluid and drink by mouth daily as needed for constipation. 238 g 5 3:31 PM EST 10/18/20 25 Active senna-docusate (SENNOSIDES-DO CUSATE SODIUM) 8.6-50 mg per tablet Take 1 tablet by mouth at bedtime as needed for constipation. 30 tablet 5 3:31 PM EST 10/18/20 25 Active sulfamethoxazo le-trimethopri m (BACTRIM) 400-80 mg per tablet Take 1 tablet by mouth daily. 30 tablet 2 5 3:31 PM EST 10/18/20 25 Active mycophenolate (CELLCEPT) 250 mg capsule Take 2 capsules (500 mg total) by mouth 2 times a day. 120 capsule 5 5 3:31 PM EST 10/18/20 25 Active calcium-vitami n D 500 mg-5 mcg (200 unit) per tablet Take 1 tablet by mouth 2 times a day with meals. 60 tablet 2 5 3:31 PM EST 10/18/20 25 Active acetaminophen (TYLENOL) 325 MG tablet Take 3 tablets (975 mg total) by mouth every 8 hours. 200 tablet 5 3:31 PM EST 10/18/20 25 Active methocarbamoL (ROBAXIN) 500 MG tablet Take 1 tablet (500 mg total) by mouth 3 times a day. 90 tablet 5 3:31 PM EST 10/18/20 25 Active pen needle, diabetic 32 gauge x 5/32 Ndle For use with insulin pen. Use as instructed. 100 each 2 5 3:31 PM EST 10/18/20 25 Active alcohol swabs PadM Use as instructed. 200 each 2 5 3:31 PM EST 10/18/20 25 Active blood-glucose meter Misc Use to test blood sugar four times a day. 1 each 5 3:31 PM EST 10/18/20 25 Active blood sugar diagnostic (GLUCOSE BLOOD) Strp Use to test blood sugar four times a day. 100 strip 11 5 3:31 PM EST 10/18/20 25 Active lancets Misc Use to test blood sugar four times a day. 100 each 11 5 3:31 PM EST 10/18/20 25 Active pantoprazole (PROTONIX) 40 MG tablet Take 1 tablet (40 mg total) by mouth every morning before breakfast. 30 tablet 2 5 3:31 PM EST 10/18/20 25 Active predniSONE (DELTASONE) 5 MG tablet Take 6 tablets by mouth in the morning on 10/23, then take 5 tablets by mouth on 10/24, and then starting on 10/25, take 4 tablets daily 123 tablet 2 5 3:31 PM EST 10/22/20 25 Active insulin lispro 100 unit/mL InPn Administer insulin with meals per sliding scale: Blood glucose 150-199 mg/dL =1units, Blood glucose 200-249 mg/dL =2 units, Blood glucose 250-299 mg/dL =3 units, Blood glucose 300-349 mg/dL =4 units, Blood glucose greater than 349 mg/dL = 5 units 15 mL 2 5 3:31 PM EST 10/22/20 25 Active oxyCODONE (ROXICODONE) 5 MG immediate release tabletIndicati ons:S/P liver transplant ([facility]) Take 1 tablet (5 mg total) by mouth every 8 hours as needed for up to 3 days. 9 tablet 5 3:31 PM EST 10/22/20 25 025 Active NIFEdipine (PROCARDIA-XL) 30 MG (OSM) 24 hr tablet Take 1 tablet (30 mg total) by mouth daily. 30 tablet 5 3:31 PM EST 10/22/20 25 Active potassium chloride (KLOR-CON) 10 MEQ CR tablet Take 1 tablet (10 mEq total) by mouth daily. 7 tablet 5 3:31 PM EST 10/22/20 25 Active sod phos di, mono-K phos mono (PHOSPHORUS) 250 mg Tab tablet Take 250 mg by mouth 2 times a day. 14 tablet 5 3:31 PM EST 10/22/20 25 Active furosemide (LASIX) 40 MG tablet Take 1 tablet (40 mg total) by mouth daily. 7 tablet 5 3:31 PM EST 10/22/20 25 Active tacrolimus (PROGRAF) 1 MG capsule Take 5 capsules (5 mg total) by mouth 2 times a day. 600 capsule 5 5 3:31 PM EST 10/22/20 25 Active XIFAXAN 550 mg Tab tablet Take 1 tablet (550 mg total) by mouth 2 times a day. 01/16/20 25 025 Discontinued(St op Taking at Discharge) ergocalciferol (ERGOCALCIFERO L) 1,250 mcg (50,000 unit) capsule Take 1 capsule (50,000 Units total) by mouth once a week. 03/08/20 25 025 Discontinued(St op Taking at Discharge) furosemide (LASIX) 20 MG tablet Take 2 tablets (40 mg total) by mouth daily. 03/13/20 025 Discontinued omeprazole (PRILOSEC) 20 MG capsule Take 2 capsules (40 mg total) by mouth daily. 03/14/20 025 Discontinued(St op Taking at Discharge) spironolactone (ALDACTONE) 50 MG tablet Take 3 tablets (150 mg total) by mouth daily. 03/13/20 025 Discontinued(St op Taking at Discharge) calcitRIOL (ROCALTROL) 0.25 MCG capsule Take 1 capsule (0.25 mcg total) by mouth. Take 1 capsule by mouth 5 times a week. Once daily Wednesday through Wednesday08/08/20 Discontinued(St op Taking at Discharge) tacrolimus (PROGRAF) 1 MG capsule Take 10 capsules (10 mg total) by mouth 2 times a day. 600 capsule 5 10/18/20 Discontinued predniSONE (DELTASONE) 5 MG tablet Take 4 tablets (20 mg total) by mouth daily. 120 tablet 2 10/18/20 Discontinued insulin lispro 100 unit/mL InPn Administer insulin with meals per sliding scale: Blood glucose 150-199 mg/dL= 2 units, Blood glucose 200-249 mg/dL= 4 units, Blood glucose 250-299 mg/dL= 7 units, Blood glucose 300-349 mg/dL = 10 units, Blood glucose >349 mg/dL = 12 units 15 mL 2 10/18/20 Discontinued apixaban (ELIQUIS) 2.5 mg Tab Take 1 tablet (2.5 mg total) by mouth 2 times a day. 60 tablet 10/18/20 Discontinued(St op Taking at Discharge) potassium phosphate, monobasic, (K-PHOS) 500 mg tablet dissolve 1 tablet (500 mg total) in 6 to 8 ounces of water and drink by mouth 2 times a day. 60 tablet 10/22/20 25 Discontinued(St op Taking at Discharge) Active Problems Problem Noted Date Diagnosed Date [...] Encounters Date Type Department Care Team Description 10/23/2025 Orders Only [facility] Liver Transplant at [address] [address] Giovanna June RN Liver replaced by transplant ([facility]) (Primary Dx) 10/22/2025 Chart Note [facility] Liver Transplant at [address] [address] Cori Womack, JudyD Liver Transplant Pharmacy Discharge Note 10/22/2025 Orders Only [facility] Liver Transplant at [address] [place] [address] Ruma Benjamin RN S/P liver transplant ([facility]) (Primary Dx); Immunosuppression ([facility]) 10/22/2025 Orders Only [facility] Liver Transplant at [address] [place] [address] Felice Nugent III, MD Liver replaced by transplant ([facility]) (Primary Dx); Immunosuppressive management encounter following liver transplant ([facility]) 10/19/2025 Education Chart Note [facility] Liver Transplant at [address] [place] [address] Giovanna June, RN 10/18/2025 Chart Note [facility] Kidney Transplant at [address] [place] [address] Ailin Wells Txp Patient Called In 10/18/2025 Pharmacy Services [facility] at [address] [place] [address] Dory Hannah [facility] 10/18/2025 Chart Note [facility] Liver Transplant at [address] [place] [address] Giovanna June, RN I introduced myself as inpatient liver operations coordinator, explained 10/18/2025 Chart Note [facility] Liver Transplant at [address] [place] [address] Rosangela Lewis, RN I have verified that the donor serologies entered in Epic match the donor 10/17/2025 1:37 PM EST Anesthesia Event [facility] [address] [place] [address] Oskar Torres MD Edwards, Anna, MD 10/17/2025 12:00 PM EST - 10/17/2025 8:12 PM EST Surgery [facility] [address] [place] [address] Vani Drew MD TRANSPLANT LIVER 10/17/2025 8:52 AM EST - 10/22/2025 4:06 PM EST Hospital Encounter [facility] [address] [place] [address] Vani Drew MD S/P liver transplant (CMS-HCC) (Primary Dx); End stage liver disease (CMS-HCC) Discharge Disposition: Home WITH Home Health Care Services 10/17/2025 Chart Note [facility] Liver Transplant at [address] [place] [phone] Maeve Hubbard, RN Per Dr Drew, patient received whole liver with no extra vessels on 10/17/2025 Telephone [facility] Kidney Transplant at [address] [place] [phone] Lore Burgos MA Appointment; Advice Only 10/17/2025 Travel 10/17/2025 Telephone [facility] Liver Transplant at [address] [place] [address] Joslyn Faulkner, SILVIO 10/03/2025 Telephone [facility] Transplant at [address] [place] [phone] Pb Sy, SILVIO 10/03/2025 Chart Note [facility] Transplant at [address] [place] [phone] Ailin Wells Organ: Liver 10/03/2025 Telephone [facility] Liver Transplant at [address] [place] [phone] Pb Sy, RN Appointment 09/25/2025 Telephone [facility] Liver Transplant at [address] [place] [phone] Chapito Alcantar, SILVIO 09/25/2025 Chart Note [facility] Liver Transplant at [address] [place] [phone] Chapito Alcantar, RN UNOS VERIFICATION CHECK FORM 09/25/2025 Chart Note [facility] Kidney Transplant at [address] [place] [phone] Ailin Wells Authorization for listing 09/24/2025 1:00 PM EST Office Visit [facility] Transplant at [address] [place] [phone] Nigel Reaves MD Esophageal varices without bleeding, unspecified esophageal varices type (CMS-HCC) (Primary Dx); Alcoholic cirrhosis of liver with ascites (CMS-HCC); Hepatic encephalopathy (CMS-HCC); Pre-transplant evaluation for chronic liver disease; Ascites due to alcoholic cirrhosis (CMS-HCC) 09/24/2025 Orders Only [facility] Liver Transplant at [address] [place] [address] Chapito Alcantar, RN Alcoholic cirrhosis of liver with ascites (CMS-HCC) (Primary Dx); Pre-transplant evaluation for chronic liver disease 09/24/2025 Chart Note [facility]ney Transplant at [address] [place] [address] Ailin Wells Called local office again to get status of listing auth request. Spoke to 09/21/2025 Refill [facility] at [facility] [address] [facility] [address] [place] [address] Arturo Gibson RN 09/20/2025 Telephone [facility] Liver Transplant at [address] [place] [address] Cori Dover MA 09/20/2025 Chart Note [facility] Liver Transplant at [address] [place] [phone] Chapito Alcantar, RN Spoke with patient's spouse and updated her on current bed situation. 09/19/2025 Telephone [facility] Liver Transplant at [address] [place] [address] Chapito Alcantar, RN 09/18/2025 Pharmacy Services [facility] [address] [place] [address] Delaney Bahena, RXT 09/17/2025 Refill [facility] at [facility] [address] [facility] [address] [place] [address] Johnny Dubois RN 09/17/2025 Telephone [facility] at [facility] [address] [facility] [address] [place] [address] Navi Sims MD 09/13/2025 Chart Note [facility] Liver Transplant at [address] [phone] Chapito Alcantar, RN Multi-disciplinary Hepatobiliary Case Conference Review: 09/11/2025 Telephone [facility] Liver Transplant at [address] [place] [phone] Chapito Alcantar, SILVIO 09/11/2025 Chart Note [facility]ney Transplant at [address] [place] [phone] Ailin Wells Faxed Clinical for Listing/Txp Auth 09/11/2025 Telephone [facility] Liver Transplant at [address] [address] Chapito Alcantar, SILVIO 09/10/2025 4:35 PM EDT [facility] [address] [place] [phone] Buddy Zimmerman MD Alcoholic cirrhosis of liver with ascites (CMS-HCC); Pre-transplant evaluation for chronic liver disease 09/10/2025 2:00 PM EDT Office Visit [facility] Liver Transplant at [address] [place] [phone] Unknown, Attending Provider Navi Sims MD Pre-transplant evaluation for chronic liver disease (Primary Dx); Encounter for pre-transplant evaluation for liver transplant 09/10/2025 1:30 PM EDT Office Visit [facility] Liver Transplant at [address] [address] Lane Troy MD Alcoholic cirrhosis of liver with ascites (CMS-HCC) (Primary Dx); Pre-transplant evaluation for chronic liver disease 09/10/2025 1:00 PM EDT Office Visit [facility] Liver Transplant at [address] [address] Buddy Zimmerman MD Pre-transplant evaluation for chronic liver disease (Primary Dx); Alcoholic cirrhosis of liver with ascites (CMS-HCC) 09/10/2025 12:00 PM EDT Office Visit [facility] Anesthesia Transplant at [address] [address] Unknown, Attending Provider Stefan Gonzalez MD Pre-transplant evaluation for chronic liver disease (Primary Dx) 09/10/2025 10:03 AM EDT - 09/10/2025 11:59 PM EDT Hospital Encounter [facility] [address] [place] [address] Nigel Reaves MD Pre-transplant evaluation for chronic liver disease Discharge Disposition: Home or Self Care WITHOUT Home Care Services 09/10/2025 Social Work [facility] Liver Transplant at [address] [address] Michelle Ho, MADHAV, MAINTENANCE MECHANIC ENGINE 09/10/2025 Nutrition [facility] Transplant at [address] [place] [address] Oskar Arango, RD 09/10/2025 Chart Note [facility] Liver Transplant at [address] [address] Chapito Alcantar, RN Alcoholic cirrhosis of liver with ascites (CMS-HCC) (Primary Dx); Pre-transplant evaluation for chronic liver disease 09/08/2025 8:34 PM EDT - 09/08/2025 11:59 PM EDT Hospital Encounter [facility] [address] [place] [address] System, Provider Not In Discharge Disposition: Home or Self Care WITHOUT Home Care Services 09/08/2025 8:34 PM EDT - 09/08/2025 11:59 PM EDT Hospital Encounter [facility] [address] [place] [address] System, Provider Not In Discharge Disposition: Home or Self Care WITHOUT Home Care Services 09/08/2025 8:31 PM EDT - 09/08/2025 8:33 PM EDT Hospital Encounter [facility] [address] [place] [address] System, Provider Not In Discharge Disposition: Home or Self Care WITHOUT Home Care Services 09/08/2025 8:31 PM EDT - 09/08/2025 8:33 PM EDT Hospital Encounter [facility] [address] [place] [address] System, Provider Not In Discharge Disposition: Home or Self Care WITHOUT Home Care Services 09/05/2025 Telephone [facility] Liver Transplant at [address] [place] [address] Chapito Alcantar, SILVIO 09/05/2025 Telephone [facility] Liver Transplant at [address] [place] [phone] Cori Dover MA 09/05/2025 Abstract [facility] Liver Transplant at [address] [place] [address] Chapito Alcantar, RN Alcoholic cirrhosis of liver with ascites (CMS-HCC) (Primary Dx); Ascites due to alcoholic cirrhosis (CMS-HCC); Hepatic encephalopathy (CMS-HCC); Esophageal varices without bleeding, unspecified esophageal varices type (CMS-HCC); Pre-transplant evaluation for chronic liver disease 08/13/2025 Telephone [facility] Liver Transplant at [address] [phone] Cori Dover MA 08/13/2025 Telephone [facility] Liver Transplant at [address] [phone] Cori Dover MA 08/13/2025 Orders Only [facility] Liver Transplant at [address] [address] Chapito Alcantar, SILVIO Pre-transplant evaluation for chronic liver disease (Primary Dx) 08/13/2025 Chart Note [facility] Kidney Transplant at [address] [address] Ailin Wells Patient is financially cleared for liver transplant evaluation 08/02/2025 Chart Note [facility] Liver Transplant at [address] [address] Cori Dover MA Liver transplant referral entered. 08/01/2025 Chart Note [facility] Liver Transplant at [address] [address] Chapito Alcantar, paralegal internship for liver transplant was received and reviewed. The review notes 07/31/2025 Telephone [facility] Liver Transplant at [address] [address] Chapito Alcantar, RN from Last 3 Months [...] any time in the past 12 m [facility], were you homeless or living in a custodial (including now)? No 10/17/2025 Utilities Answer Date [...] Mass Index 35.51 10/17/2025 9:39 AM EST Plan of Treatment Health Maintenance Due Date Last Done Comments Abnormal Colonoscopy Follow Up 1961 Immunization: COVID-19 (#1) 1966 Immunization: Hepatitis A (1 of 2 - Risk 2-dose series) 02/02/1980 Immunization: Pneumococcal ( 1 of 2 - PCV) 02/02/1980 Immunization: Zoster (1 of 2) 02/02/1980 Cologuard (FIT-DNA) 2006 Colonoscopy 2006 Colorectal Cancer Screening (MyChart) 2006 Stool Testing (gFOBT) 2006 Immunization: RSV (Adult) (1 - Risk 50-74 years 1-dose series) 2011 Immunization: Influenza (MyChart) (#1) 2025 Depression Screening 09/10/2026 09/10/2025, 09/10/2025 Diabetes Screening 10/17/2026 10/17/2025, 09/10/2025 Immunization: DTaP/Tdap/Td ( 2 - Td or Tdap) 09/10/2035 09/10/2025 HIV Screening Completed 10/17/2025 Hepatitis C Screening (MyChart) Completed 10/17/2025 Immunization: HPV Aged Out No longer eligible based on patient's age to complete this topic Medical Devices Implanted Type Area Centrifugal Supervisor Device Identifier Shelf Expiration Date Model / Serial / Lot Liver Implanted:Qty: 1 on 10/17/2025 by Vani Drew MD at [facility] [id number] / [id number] / [id number] Procedures Procedure Name Priority Date/Time Associated Diagnosis Comments US DUPLEX [id number] COMPLETE STAT 10/22/2025 10:24 AM EST US ABDOMEN LIMITED STAT 10/22/2025 10 :24 AM EST POC GLU MONITORING DEVICE Routine 10/22/2025 10:23 AM EST TACROLIMUS LEVEL Timed 10/22/2025 9:48 AM EST PHOSPHORUS STAT 10/22/2025 5:28 AM EST MAGNESIUM STAT 10/22/2025 5:28 AM EST CBC STAT 10/22/2025 5:28 AM EST HEPATIC FUNCTION PANEL STAT 5:28 AM EST BASIC METABOLIC PANEL STAT 10/22/2025 5:28 AM EST POC GLU MONITORING DEVICE Routine 10/21/2025 4:31 PM EST POC GLU MONITORING DEVICE Routine 10/21/2025 12:27 PM EST TACROLIMUS LEVEL Timed 10/21/2025 8:30 AM EST POC GLU MONITORING DEVICE Routine 10/21/2025 8:18 AM EST HEPATIC FUNCTION PANEL STAT 6:35 AM EST MAGNESIUM STAT 10/21/2025 6:35 AM EST RENAL FUNCTION PANEL W/EGFR STAT 10/21/2025 6:35 AM EST CBC STAT 10/21/2025 6:35 AM EST POC GLU MONITORING DEVICE Routine 10/20/2025 5:17 PM EST POC GLU MONITORING DEVICE Routine 10/20/2025 2:24 PM EST TACROLIMUS LEVEL Timed 10/20/2025 10:3 1 AM EST POC GLU MONITORING DEVICE Routine 10/20/2025 9:24 AM EST MAGNESIUM Routine 10/20/2025 5:31 AM EST HEPATIC FUNCTION PANEL Routine 5:31 AM EST RENAL FUNCTION PANEL W/EGFR Routine 10/20/2025 5:31 AM EST CBC Routine 10/20/2025 5:31 AM EST POC GLU MONITORING DEVICE Routine 10/20/2025 5:30 AM EST PROTIME-INR Routine 10/19/2025 11:03 PM EST MAGNESIUM Routine 10/19/2025 11:03 PM EST HEPATIC FUNCTION PANEL Routine 11:03 PM EST RENAL FUNCTION PANEL W/EGFR Routine 10/19/2025 11:03 PM EST CBC Routine 10/19/2025 11:03 PM EST POC GLU MONITORING DEVICE Routine 10/19/2025 11:02 PM EST POC GLU MONITORING DEVICE Routine 10/19/2025 5:24 PM EST POC GLU MONITORING DEVICE Routine 10/19/2025 12:26 PM EST POC GLU MONITORING DEVICE Routine 10/19/2025 9:51 AM EST PROTIME-INR Routine 10/19/2025 8:29 AM EST MAGNESIUM Routine 10/19/2025 8:29 AM EST HEPATIC FUNCTION PANEL Routine 8:29 AM EST RENAL FUNCTION PANEL W/EGFR Routine 10/19/2025 8:29 AM EST CBC Routine 10/19/2025 8:29 AM EST TACROLIMUS LEVEL Timed 10/19/2025 8:29 AM EST POC GLU MONITORING [...] MONITORING DEVICE Routine 10/18/2025 11:57 PM EST LACTIC ACID Routine 10/18/2025 10:20 PM EST MAGNESIUM Routine 10/18/2025 10:20 PM EST HEPATIC FUNCTION PANEL Routine 10:20 PM EST RENAL FUNCTION PANEL W/EGFR Routine 10/18/2025 10:20 PM EST PROTIME-INR Routine 10/18/2025 10:20 PM EST CBC Routine 10/18/2025 10:20 PM EST POC GLU MONITORING DEVICE Routine 10/18/2025 10:07 PM EST POC GLU MONITORING DEVICE Routine 10/18/2025 8:14 PM EST LACTIC ACID Routine 10/18/2025 5:47 PM EST MAGNESIUM Routine 10/18/2025 5:47 PM EST HEPATIC FUNCTION PANEL Routine 5:47 PM EST RENAL FUNCTION PANEL W/EGFR Routine 10/18/2025 5:47 PM EST PROTIME-INR Routine 10/18/2025 5:47 PM EST CBC Routine 10/18/2025 5:47 PM EST POC GLU MONITORING DEVICE Routine 10/18/2025 5:45 PM EST POC GLU MONITORING DEVICE Routine 10/18/2025 3:06 PM EST POC GLU MONITORING DEVICE Routine 10/18/2025 1:15 PM EST POC GLU MONITORING DEVICE Routine 10/18/2025 12:12 PM EST PREPARE FRESH FROZEN PLASMA Routine 10/18/2025 11:58 AM EST LACTIC ACID Routine 10/18/2025 11:21 AM EST MAGNESIUM Routine 10/18/2025 11:21 AM EST HEPATIC FUNCTION PANEL Routine 11:21 AM EST RENAL FUNCTION PANEL W/EGFR Routine 10/18/2025 11:21 AM EST PROTIME-INR Routine 10/18/2025 11:21 AM EST CBC Routine 10/18/2025 11:21 AM EST POC GLU MONITORING DEVICE Routine 10/18/2025 11:04 AM EST POC GLU MONITORING DEVICE Routine 10/18/2025 10:29 AM EST US DUPLEX [id number] COMPLETE STAT 10/18/2025 9:35 AM EST US ABDOMEN LIMITED STAT 10/18/2025 9: 35 AM EST POC GLU MONITORING DEVICE Routine 10/18/2025 9:11 AM EST POC GLU MONITORING DEVICE Routine 10/18/2025 7:56 AM EST POC GLU MONITORING DEVICE Routine 10/18/2025 6:59 AM EST XR PORTABLE CHEST Routine 10/18/2025 6: 37 AM EST PREPARE PLATELETS, LEUKOREDUCED Routine 10/18/2025 6:17 AM EST PREPARE PLATELETS, LEUKOREDUCED STAT 10/18/2025 6:17 AM EST PREPARE RBC, LEUKOREDUCED Routine 10/18/2025 6:16 AM EST PREPARE CRYOPRECIPITATE Routine 10/18/2025 6:15 AM EST PREPARE CRYOPRECIPITATE Routine 10/18/2025 6:15 AM EST PREPARE CRYOPRECIPITATE STAT 10/18/2025 6:15 AM EST PREPARE CRYOPRECIPITATE STAT 10/18/2025 6:15 AM EST PREPARE CRYOPRECIPITATE Routine 10/18/2025 6:15 AM EST PREPARE RBC, LEUKOREDUCED Routine 10/18/2025 6:15 AM EST PREPARE FRESH FROZEN PLASMA Routine 10/18/2025 6:15 AM EST POC GLU MONITORING DEVICE Routine 10/18/2025 6:06 AM EST BLOOD GAS, ARTERIAL Routine 10/18/2025 5 :19 AM EST LACTIC ACID Routine 10/18/2025 5:02 AM EST MAGNESIUM Routine 10/18/2025 5:02 AM EST HEPATIC FUNCTION PANEL Routine 5:02 AM EST RENAL FUNCTION PANEL W/EGFR Routine 10/18/2025 5:02 AM EST PROTIME-INR Routine 10/18/2025 5:02 AM EST CBC Routine 10/18/2025 5:02 AM EST POC GLU [...] CHEST STAT 10/17/2025 11: 28 PM EST CALCIUM FREE, SERUM Routine 10/17/2025 1 0:50 PM EST TEG-STANDARD GLOBAL HEMOSTASIS (RAPID TEG WITH HEPARIN EFFECT, CONTAINS A BASELINE) STAT 10/17/2025 10:50 PM EST LACTIC ACID STAT 10/17/2025 10:50 PM EST FIBRINOGEN STAT 10/17/2025 10:50 PM EST PROTIME-INR STAT 10/17/2025 10:50 PM EST BLOOD GAS, ARTERIAL STAT 10/17/2025 1 0:50 PM EST MAGNESIUM STAT 10/17/2025 10:50 PM EST HEPATIC FUNCTION PANEL STAT 10:50 PM EST RENAL FUNCTION PANEL W/EGFR STAT 10/17/2025 10:50 PM EST CBC STAT 10/17/2025 10:50 PM EST POC GLU MONITORING DEVICE Routine 10/17/2025 10:47 PM EST POC SAMPLE TYPE Routine 10/17/2025 9:25 PM EST POC ANION GAP Routine 10/17/2025 9:25 PM EST POC CHLORIDE Routine 10/17/2025 9:25 PM EST POCT HEMOGLOBIN Routine 10/17/2025 9:25 PM EST POCT HEMATOCRIT Routine 10/17/2025 9:25 PM EST POC LACTATE Routine 10/17/2025 9:25 PM EST POCT GLUCOSE Routine 10/17/2025 9:25 PM EST POCT CALCIUM, TOTAL Routine 10/17/2025 9 :25 PM EST POC POTASSIUM Routine 10/17/2025 9:25 PM EST POC SODIUM Routine 10/17/2025 9:25 PM EST POC TCO2 Routine 10/17/2025 9:25 PM EST POC O2 SAT Routine 10/17/2025 9:25 PM EST POC BASE EXCESS Routine 10/17/2025 9:25 PM EST POC HCO3 Routine 10/17/2025 9:25 PM EST POC PO2 Routine 10/17/2025 9:25 PM EST POC PCO2 Routine 10/17/2025 9:25 PM EST POCT PH Routine 10/17/2025 9:25 PM EST POCT INR [...] FIBRINOGEN STAT 10/17/2025 8:31 PM EST POC SAMPLE TYPE Routine 10/17/2025 8:22 PM EST POC ANION GAP Routine 10/17/2025 8:22 PM EST POC CHLORIDE Routine 10/17/2025 8:22 PM EST POCT HEMOGLOBIN Routine 10/17/2025 8:22 PM EST POCT HEMATOCRIT Routine 10/17/2025 8:22 PM EST POC LACTATE Routine 10/17/2025 8:22 PM EST POCT GLUCOSE Routine 10/17/2025 8:22 PM EST POCT CALCIUM, TOTAL Routine 10/17/2025 8 :22 PM EST POC POTASSIUM Routine 10/17/2025 8:22 PM EST POC SODIUM Routine 10/17/2025 8:22 PM EST POC TCO2 Routine 10/17/2025 8:22 PM EST POC O2 SAT Routine 10/17/2025 8:22 PM EST POC BASE EXCESS Routine 10/17/2025 8:22 PM EST POC HCO3 Routine 10/17/2025 8:22 PM EST POC PO2 Routine 10/17/2025 8:22 PM EST POC PCO2 Routine 10/17/2025 8:22 PM EST POCT PH Routine 10/17/2025 8:22 PM EST POCT INR Routine 10/17/2025 8:21 PM EST TRANSFUSE FRESH FROZEN PLASMA Routine 10/17/2025 8:05 PM EST TRANSFUSE FRESH FROZEN PLASMA Routine 10/17/2025 8:05 PM EST TRANSFUSE FRESH FROZEN PLASMA Routine 10/17/2025 7:39 PM EST TRANSFUSE FRESH FROZEN PLASMA Routine 10/17/2025 7:38 PM EST POC SAMPLE TYPE Routine 10/17/2025 7:26 PM EST POC ANION GAP Routine 10/17/2025 7:26 PM EST POC CHLORIDE Routine 10/17/2025 7:26 PM EST POCT HEMOGLOBIN Routine 10/17/2025 7:26 PM EST POCT HEMATOCRIT Routine 10/17/2025 7:26 PM EST POC LACTATE Routine 10/17/2025 7:26 PM EST POCT GLUCOSE Routine 10/17/2025 7:26 PM EST POCT CALCIUM, TOTAL Routine 10/17/2025 7 :26 PM EST POC POTASSIUM Routine 10/17/2025 7:26 PM EST POC SODIUM Routine 10/17/2025 7:26 PM EST POC TCO2 Routine 10/17/2025 7:26 PM EST POC O2 SAT Routine 10/17/2025 7:26 PM EST POC BASE EXCESS Routine 10/17/2025 7:26 PM EST POC HCO3 Routine 10/17/2025 7:26 PM EST POC PO2 Routine 10/17/2025 7:26 PM EST POC PCO2 Routine 10/17/2025 7:26 PM EST POCT PH Routine 10/17/2025 7:26 PM EST POCT INR Routine 10/17/2025 7:25 PM EST TRANSFUSE PLATELETS Routine 10/17/2025 7 :03 PM EST TEG-BYPASS/ECMO/LIVER HN (FACTOR FUNCTION, PLATELET/FIBRIN CLOT STRENGTH W/CLOT BREAKDOWN, HEPARINASE IN ALL CHANNELS) STAT 10/17/2025 6:39 PM EST CBC STAT 10/17/2025 6:39 PM EST PROTIME-INR STAT 10/17/2025 6:39 PM EST FIBRINOGEN STAT 10/17/2025 6:39 PM EST TRANSFUSE CRYOPRECIPITATE Routine 10/17/2025 6:31 PM EST POC SAMPLE TYPE Routine 10/17/2025 6:23 PM EST POC ANION GAP Routine 10/17/2025 6:23 PM EST POC CHLORIDE Routine 10/17/2025 6:23 PM EST POCT HEMOGLOBIN Routine 10/17/2025 6:23 PM EST POCT HEMATOCRIT Routine 10/17/2025 6:23 PM EST POC LACTATE Routine 10/17/2025 6:23 PM EST POCT GLUCOSE Routine 10/17/2025 6:23 PM EST POCT CALCIUM, TOTAL Routine 10/17/2025 6 :23 PM EST POC POTASSIUM Routine 10/17/2025 6:23 PM EST POC SODIUM Routine 10/17/2025 6:23 PM EST POC TCO2 Routine 10/17/2025 6:23 PM EST POC O2 SAT Routine 10/17/2025 6:23 PM EST POC BASE EXCESS Routine 10/17/2025 6:23 PM EST POC HCO3 Routine 10/17/2025 6:23 PM EST POC PO2 Routine 10/17/2025 6:23 PM EST POC PCO2 Routine 10/17/2025 6:23 PM EST POCT PH Routine 10/17/2025 6:23 PM EST POCT INR Routine 10/17/2025 6:21 PM EST TRANSFUSE CRYOPRECIPITATE Routine 10/17/2025 6:18 PM EST POC SAMPLE TYPE Routine 10/17/2025 5:42 PM EST POC ANION GAP Routine 10/17/2025 5:42 PM EST POC CHLORIDE Routine 10/17/2025 5:42 PM EST POCT HEMOGLOBIN Routine 10/17/2025 5:42 PM EST POCT HEMATOCRIT Routine 10/17/2025 5:42 PM EST POC LACTATE Routine 10/17/2025 5:42 PM EST POCT GLUCOSE Routine 10/17/2025 5:42 PM EST POCT CALCIUM, TOTAL Routine 10/17/2025 5 :42 PM EST POC POTASSIUM Routine 10/17/2025 5:42 PM EST POC SODIUM Routine 10/17/2025 5:42 PM EST POC TCO2 Routine 10/17/2025 5:42 PM EST POC O2 SAT Routine 10/17/2025 5:42 PM EST POC BASE EXCESS Routine 10/17/2025 5:42 PM EST POC HCO3 Routine 10/17/2025 5:42 PM EST POC PO2 Routine 10/17/2025 5:42 PM EST POC PCO2 Routine 10/17/2025 5:42 PM EST POCT PH Routine 10/17/2025 5:42 PM EST POCT INR Routine 10/17/2025 5:37 PM EST TRANSFUSE RED BLOOD CELLS Routine 10/17/2025 5:34 PM EST TRANSFUSE RED BLOOD CELLS Routine 10/17/2025 5:34 PM EST SURGICAL PATHOLOGY EXAM Routine 10/17/2025 5:20 PM EST TRANSFUSE RED BLOOD CELLS Routine 10/17/2025 5:19 PM EST POC SAMPLE TYPE Routine 10/17/2025 5:00 PM EST POC ANION GAP Routine 10/17/2025 5:00 PM EST POC CHLORIDE Routine 10/17/2025 5:00 PM EST POCT HEMOGLOBIN Routine 10/17/2025 5:00 PM EST POCT HEMATOCRIT Routine 10/17/2025 5:00 PM EST POC LACTATE Routine 10/17/2025 5:00 PM EST POCT GLUCOSE Routine 10/17/2025 5:00 PM EST POCT CALCIUM, TOTAL Routine 10/17/2025 5 :00 PM EST POC POTASSIUM Routine 10/17/2025 5:00 PM EST POC SODIUM Routine 10/17/2025 5:00 PM EST POC TCO2 Routine 10/17/2025 5:00 PM EST POC O2 SAT Routine 10/17/2025 5:00 PM EST POC BASE EXCESS Routine 10/17/2025 5:00 PM EST POC HCO3 Routine 10/17/2025 5:00 PM EST POC PO2 Routine 10/17/2025 5:00 PM EST POC PCO2 Routine 10/17/2025 5:00 PM EST POCT PH Routine 10/17/2025 5:00 PM EST POCT INR Routine 10/17/2025 4:59 PM EST TEG-BYPASS/ECMO/LIVER HN (FACTOR FUNCTION, PLATELET/FIBRIN CLOT STRENGTH W/CLOT BREAKDOWN, HEPARINASE IN ALL CHANNELS) STAT 10/17/2025 4:56 PM EST PROTIME-INR STAT 10/17/2025 4:56 PM EST FIBRINOGEN STAT 10/17/2025 4:56 PM EST CBC STAT 10/17/2025 4:56 PM EST APTT STAT 10/17/2025 4:56 PM EST TRANSFUSE CRYOPRECIPITATE Routine 10/17/2025 4:17 PM EST TRANSFUSE CRYOPRECIPITATE STAT 10/17/2025 4:13 PM EST TRANSFUSE PLATELETS Routine 10/17/2025 4 :06 PM EST POC SAMPLE TYPE Routine 10/17/2025 3:59 PM EST POC ANION GAP Routine 10/17/2025 3:59 PM EST POC CHLORIDE Routine 10/17/2025 3:59 PM EST POCT HEMOGLOBIN Routine 10/17/2025 3:59 PM EST POCT HEMATOCRIT Routine 10/17/2025 3:59 PM EST POC LACTATE Routine 10/17/2025 3:59 PM EST POCT GLUCOSE Routine 10/17/2025 3:59 PM EST POCT CALCIUM, TOTAL Routine 10/17/2025 3 :59 PM EST POC POTASSIUM Routine 10/17/2025 3:59 PM EST POC SODIUM Routine 10/17/2025 3:59 PM EST POC TCO2 Routine 10/17/2025 3:59 PM EST POC O2 SAT Routine 10/17/2025 3:59 PM EST POC BASE EXCESS Routine 10/17/2025 3:59 PM EST POC HCO3 Routine 10/17/2025 3:59 PM EST POC PO2 Routine 10/17/2025 3:59 PM EST POC PCO2 Routine 10/17/2025 3:59 PM EST POCT PH Routine 10/17/2025 3:59 PM EST POCT INR Routine 10/17/2025 3:58 PM EST TRANSFUSE RED BLOOD CELLS Routine 10/17/2025 3:22 PM EST TRANSFUSE RED BLOOD CELLS Routine 10/17/2025 3:15 PM EST TEG-BYPASS/ECMO/LIVER HN (FACTOR FUNCTION, PLATELET/FIBRIN CLOT STRENGTH W/CLOT BREAKDOWN, HEPARINASE IN ALL CHANNELS) STAT 10/17/2025 2:55 PM EST CBC STAT 10/17/2025 2:55 PM EST FIBRINOGEN STAT 10/17/2025 2:55 PM EST PROTIME-INR STAT 10/17/2025 2:55 PM EST POC SAMPLE TYPE Routine 10/17/2025 2:54 PM EST POC ANION GAP Routine 10/17/2025 2:54 PM EST POC CHLORIDE Routine 10/17/2025 2:54 PM EST POCT HEMOGLOBIN Routine 10/17/2025 2:54 PM EST POCT HEMATOCRIT Routine 10/17/2025 2:54 PM EST POC LACTATE Routine 10/17/2025 2:54 PM EST POCT GLUCOSE Routine 10/17/2025 2:54 PM EST POCT CALCIUM, TOTAL Routine 10/17/2025 2 :54 PM EST POC POTASSIUM Routine 10/17/2025 2:54 PM EST POC SODIUM Routine 10/17/2025 2:54 PM EST POC TCO2 Routine 10/17/2025 2:54 PM EST POC O2 SAT Routine 10/17/2025 2:54 PM EST POC BASE EXCESS Routine 10/17/2025 2:54 PM EST POC HCO3 Routine 10/17/2025 2:54 PM EST POC PO2 Routine 10/17/2025 2:54 PM EST POC PCO2 Routine 10/17/2025 2:54 PM EST POCT PH Routine 10/17/2025 2:54 PM EST POCT INR Routine 10/17/2025 2:53 PM EST ROUTINE CULTURE PLUS STAIN Routine 10/17/2025 2:50 PM EST FUNGUS CULTURE Routine 10/17/2025 2:50 PM EST ANAEROBIC CULTURE Routine 10/17/2025 2:5 0 PM EST HC ANESTHESIA PULMONARY ARTERY CATHETER Routine 10/17/2025 2:36 PM EST SWAN JS Routine 10/17/2025 2:36 PM EST HC ANESTHESIA DUAL LUMEN INTRODUCER (MAC) CENTRAL LINE KIT Routine 10/17/2025 2:36 PM EST CENTRAL LINE SINGLE LUMEN PERFORMABLE Routine 10/17/2025 2:36 PM EST INSERT ARTERIAL LINE Routine 10/17/2025 2:15 PM EST TRANSPLANT LIVER 10/17/2025 1:38 PM EST same TEG-STANDARD GLOBAL HEMOSTASIS (RAPID TEG WITH HEPARIN EFFECT, CONTAINS A BASELINE) Routine 10/17/2025 10:19 AM EST HEPATITIS C RNA, QUANTITATIVE REFLEX TO GENOTYPING Routine 10/17/2025 10:19 AM EST APTT Routine 10/17/2025 10:19 AM EST FIBRINOGEN Routine 10/17/2025 10:19 AM EST ANTIBODY SCREEN Routine 10/17/2025 10:18 AM EST ABO/RH Routine 10/17/2025 10:18 AM EST MAGNESIUM STAT 10/17/2025 10:18 AM EST JOSE-BEARD VIRUS VCA IGG AB Routine 10/17/2025 10:18 AM EST CMV IGG ANTIBODY Routine 10/17/2025 10:1 8 AM EST HIV 1+2 ANTIBODY/ANTIGEN WITH REFLEX Routine 10/17/2025 10:18 AM EST HEPATITIS B CORE ANTIBODY Routine 10/17/2025 10:18 AM EST HEPATITIS C ANTIBODY Routine 10/17/2025 10:18 AM EST HEPATITIS B SURFACE ANTIBODY, QUANTITATIVE Routine 10/17/2025 10:18 AM EST HEPATITIS B SURFACE ANTIGEN Routine 10/17/2025 10:18 AM EST HEPATITIS A ANTIBODY TOTAL Routine 10/17/2025 10:18 AM EST VITAMIN D 25 HYDROXY Routine 10/17/2025 10:18 AM EST HEPATIC FUNCTION PANEL Routine 10:18 AM EST RENAL FUNCTION PANEL W/EGFR STAT 10/17/2025 10:18 AM EST HEMOGLOBIN A1C Routine 10/17/2025 10:18 AM EST VENOUS BLOOD GAS, LINE/SYRINGE STAT 10/17/2025 10:18 AM EST PROTIME-INR Routine 10/17/2025 10:18 AM EST DIFFERENTIAL Routine 10/17/2025 10:18 AM EST CBC Routine 10/17/2025 10:18 AM EST TOXOPLASMA GONDII ANTIBODY, IGG Routine 10/17/2025 10:18 AM EST XR PORTABLE CHEST STAT 10/17/2025 10: 11 AM EST PROTIME-INR Routine 09/24/2025 2:11 PM EST Alcoholic cirrhosis of liver with ascites (CMS-HCC) Pre-transplant evaluation for chronic liver disease RENAL FUNCTION PANEL W/EGFR Routine 09/24/2025 2:11 PM EST Alcoholic cirrhosis of liver with ascites (CMS-HCC) Pre-transplant evaluation for chronic liver disease HEPATIC FUNCTION PANEL Routine 2:11 PM EST Alcoholic cirrhosis of liver [...] 08/29/2025 from Last 3 Months Results * US Duplex [id number] Comp (10/22/2025 10:24 AM EST) Only the most recent of2 resultswithin the time period is included. Anatomical Region Laterality Modality Abdomen, Pelvis, Testes, [...] EXAM: US ABDOMEN COMPLETE EXAM: US DUPLEX [id number] COMPLETE INDICATION: Post-op liver transplant DATE: 10/22/2025 [...] EXAM: US ABDOMEN COMPLETE EXAM: US DUPLEX [id number] COMPLETE INDICATION: Post-op liver transplant DATE: 10/22/2025 [...] MD at 10/22/2025 12:02 PM EST us Jesus Lomeli MD IMG US ORDERABLES Final Resul t * US Abdomen Limited (10/22/2025 10:24 AM EST) Only the most recent of2 resultswithin the time period is included. Anatomical Region Laterality Modality Abdomen, Pelvis Ultrasound [...] EXAM: US ABDOMEN COMPLETE EXAM: US DUPLEX [id number] COMPLETE INDICATION: Post-op liver transplant DATE: 10/22/2025 [...] EXAM: US ABDOMEN COMPLETE EXAM: US DUPLEX [id number] COMPLETE INDICATION: Post-op liver transplant DATE: 10/22/2025 [...] Jaimes MD at 10/22/2025 12:02 PM EST Jesus Lomeli MD [facility] ORDERABLES Final Resul t * POC Glucose Monitoring Device (10/22/2025 10:23 AM EST) Only the most recent of38 resultswithin the time period is included. [facility] POC Glucose Monitoring Device 96 70 - 100 mg/dL 10/22/2025 10:24 AM EST [facility] Blood 10/22/2025 10:2 3 AM EST 10/22/2025 10:23 AM EST us Vani Drew MD POINT OF CARE TEST ORDERABLE S Final Result [facility] [address] [place] [address], [facility] * Tacrolimus level (10/22/2025 9:48 AM EST) Only the most recent of4 resultswithin the time period is included. [facility] Tacrolimus (LC-MS) 4.0 3.0 - 15.0 ng/mL 10/22/2025 12:57 PM EST [facility] Comment:Performed via liquid chromatography tandem mass spectrometry. Detection limit: 1 ng/mL. Individual target concentrations may vary due to target organ and time after transplant. This test has been developed and its performance characteristics determined by [facility] which is certified under the Clinical [...] 9:48 AM EST 10/22/2025 10:01 AM EST Jesus Lomeli MD LAB BLOOD ORDERABLES Final Re sult [facility] [address] * (ABNORMAL) Hepatic Function Panel (10/22/2025 5:28 AM EST) Only the most recent of14 resultswithin the time period is included. [facility] Total Bilirubin 1.0 0.0 - 1.5 mg/dL 10/22/2025 6:20 AM EST [facility] Bilirubin, Direct 0.28 0.00 - 0.40 mg/dL 10/22/2025 6:20 AM [facility] AST 42(H) 13 - 39 U/L 10/22/2025 6:20 AM [facility] ALT 270(H) 7 - 52 U/L 10/22/2025 6:20 AM [facility] Alkaline Phosphatase 84 36 - 125 U/L 10/22/2025 6:20 AM EST [facility] Total Protein 4.3(L) 6.4 - 8.9 g/dL 10/22/2025 6:20 AM [facility] Albumin 2.1(L) 3.5 - 5.7 g/dL 10/22/2025 6:20 AM EST [facility] Bilirubin, Indirect 0.72 0.00 - 1.10 mg/dL 10/22/2025 6:20 AM EST [facility] Plasma 10/22/2025 5:28 AM EST 10/22/2025 5:42 AM EST us Aspen Parr MD LAB BLOOD ORDERABLES Final Resul t [facility] [address] [place] [address], [facility] * (ABNORMAL) CBC (10/22/2025 5:28 AM EST) Only the most recent of15 resultswithin the time period is included. WBC 6.6 3.8 - 10.8 10E3/uL 10/22/2025 5:48 AM EST [facility] RBC 2.84(L) 4.20 - 5.80 10E6/uL 10/22/2025 5:48 AM EST [facility] Hemoglobin 9.3(L) 13.2 - 17.1 g/dL 10/22/2025 5:48 AM EST [facility] Hematocrit 26.4(L) 38.5 - 50.0 % 10/22/2025 5:48 AM EST [facility] MCV 92.8 80.0 - 100.0 fL 10/22/2025 5:48 AM EST [facility] MCH 32.8 27.0 - 33.0 pg 10/22/2025 5:48 AM EST [facility] MCHC 35.4 32.0 - 36.0 g/dL 10/22/2025 5:48 AM [facility] RDW 16.0(H) 11.0 - 15.0 % 10/22/2025 5:48 AM [facility] Platelets 22(L) 140 - 400 10E3/uL 10/22/2025 5:48 AM EST [facility] Comment: CNV Specimen checked for clots. None detected. MPV 9.1 7.5 - 11.5 fL 10/22/2025 5:48 AM EST [facility] Whole Blood 10/22/2025 5:28 AM EST 10/22/2025 5:42 AM EST Aspen Parr MD LAB BLOOD ORDERABLES Final Resul t Performing Organization Address City/[facility]/ZIP Co de Phone Number [facility] [address] [facility]. [address] * Phosphorus (10/22/2025 5:28 AM EST) Phosphorus 2.3 2.1 - 4.7 mg/dL 10/22/2025 6:20 AM EST [facility] Plasma 10/22/2025 5:28 AM EST 10/22/2025 5:42 AM EST Aspen Parr MD LAB BLOOD ORDERABLES Final Resul t Performing Organization Address [facility] [[email or web address]] Co de Phone Number [facility] [address] [facility]. [address] * Magnesium (10/22/2025 5:28 AM EST) Only the most recent of11 resultswithin the time period is included. Magnesium 1.7 1.5 - 2.5 mg/dL 10/22/2025 6:20 AM EST [facility] Plasma 10/22/2025 5:28 AM EST 10/22/2025 5:42 AM EST Aspen Parr MD LAB BLOOD ORDERABLES Final Resul t Performing Organization Address City/[facility] [[email or web address]] Co de Phone Number [facility] [address] [facility]. [address] * (ABNORMAL) Basic metabolic panel (10/22/2025 5:28 AM EST) Only the most recent of2 resultswithin the time period is included. Sodium 138 133 - 146 mmol/L 10/22/2025 6:20 AM EST [facility] Potassium 3.2(L) 3.5 - 5.3 mmol/L 10/22/2025 6:20 AM EST [facility] Chloride 107 98 - 110 mmol/L 10/22/2025 6:20 AM EST [facility] CO2 25 21 - 33 mmol/L 10/22/2025 6:20 AM EST [facility] Comment:High lactate dehydro genase concentrations in patient samples may cause falsely increased bicarbonate results. If markedly elevated LDH is observed or suspected, please assess results in conjunction with patient`s clinical presentation. In cases of discrepant results, consider evaluating CO2 in with a blood gas order. Anion Gap 6 3 - 16 mmol/L 10/22/2025 6:20 AM EST [facility] BUN 25 7 - 25 mg/dL 10/22/2025 6:20 AM EST [facility] Creatinine 0.81 0.60 - 1.30 mg/dL 10/22/2025 6:20 AM EST [facility] Glucose 100 70 - 100 mg/dL 10/22/2025 6:20 AM EST [facility] Calcium 6.8(L) 8.6 - 10.3 mg/dL 10/22/2025 6:20 AM EST [facility] Osmolality, Calculated 290 278 - 305 mOsm/kg 10/22/2025 6:20 AM EST [facility] EGFR >90 10/22/2025 6:20 AM EST [facility] Comment: As of 2022, the [...] LAB BLOOD ORDERABLES Final Resul t [facility] [address] [place] [id number], [facility] * (ABNORMAL) Renal Function Panel w/EGFR (10/21/2025 6:35 AM EST) Only the most recent of11 resultswithin the time period is included. Sodium 139 133 - 146 mmol/L 10/21/2025 7:45 AM EST [facility] Potassium 3.5 3.5 - 5.3 mmol/L 10/21/2025 7:45 AM EST [facility] Chloride 108 98 - 110 mmol/L 10/21/2025 7:45 AM EST [facility] CO2 26 21 - 33 mmol/L 10/21/2025 7:45 AM EST [facility] Comment:High lactate dehydro genase concentrations in patient samples may cause falsely increased bicarbonate results. If markedly elevated LDH is observed or suspected, please assess results in conjunction with patient`s clinical presentation. In cases of discrepant results, consider evaluating CO2 in with a blood gas order. Anion Gap 5 3 - 16 mmol/L 10/21/2025 7:45 AM EST [facility] BUN 39(H) 7 - 25 mg/dL 10/21/2025 7:45 AM EST [facility] Creatinine 0.96 0.60 - 1.30 mg/dL 10/21/2025 7:45 AM EST [facility] Glucose 126(H) 70 - 100 mg/dL 10/21/2025 7:45 AM EST [facility] Calcium 6.8(L) 8.6 - 10.3 mg/dL 10/21/2025 7:45 AM EST [facility] Phosphorus 2.8 2.1 - 4.7 mg/dL 10/21/2025 7:45 AM EST [facility] Albumin 2.2(L) 3.5 - 5.7 g/dL 10/21/2025 7:45 AM EST [facility] Osmolality, Calculated 299 278 - 305 mOsm/kg 10/21/2025 7:45 AM EST [facility] EGFR 88 10/21/2025 7:45 AM EST [facility] Comment:As of 2022, the estimated [...] ORDERABLES Final Resul t Performing Organization Address [facility] [[email or web address]] Co de Phone Number [employer] [address] * (ABNORMAL) Protime-INR (10/19/2025 11:03 PM EST) Only the most recent of14 resultswithin the time period is included. Protime 18.2(H) 12.1 - 15.1 seconds 10/19/2025 11:27 PM EST [facility] INR 1.4(H) 0.9 - 1.1 10/19/2025 11:27 PM EST [facility] Comment: RECOMMENDED THERAPEUTIC RANGES USING INR : Stable oral anticoagulant therapy: 2.0 - 3.0 Mechanical prosthetic heart valve: 2.5 - 3.5 Recurrent acute myocardial infarction: 2.5 - 3.5 Plasma 10/19/2025 11:0 3 PM EST 10/19/2025 11:07 PM EST Aspen Parr MD LAB BLOOD ORDERABLES Final Resul t Performing Organization Address [facility] [[email or web address]] Co de Phone Number [facility] [address] * Lactic Acid (10/18/2025 10:20 PM EST) Only the most recent of5 resultswithin the time period is included. Lactate 0.8 0.5 - 2.2 mmol/L 10/18/2025 11:03 PM EST [facility] Plasma 10/18/2025 10:2 0 PM EST 10/18/2025 10:26 PM EST us Aspen Parr MD LAB BLOOD ORDERABLES Final Resul t [facility] [address] * Prepare Fresh Frozen Plasma (10/18/2025 11:58 AM EST) Only the most recent of2 resultswithin the time period is included. Product Code M0528R83 [facility] Unit Number [id number] [facility] Dispense Status Released from [employer] [facility]LL Blood Expiration Date [facility] Coding System [id number] [facility] Product Code H5079G95 [facility] Unit Number [id number] [facility]LL Dispense Status Released from Crossmatch_RE [facility] Blood Expiration Date [facility] Coding System VTPI361 [facility] Product Code H6424O53 [facility] Unit Number [id number] [facility] Dispense Status Released from Crossmatch_RE [facility] Blood Expiration Date HCLL Coding System QOEM973 [facility] Product Code S4035W30 [facility] Unit Number [id number] [facility] Dispense Status Released from Crossmatch_RE [facility] Blood Expiration Date [facility] Coding System QOVB171 [facility] Product Code M3797J88 [facility] Unit Number [id number] [facility] Dispense Status Released from Crossmatch_RE [facility] Blood Expiration Date [facility] Coding System [id number] [facility] us Attending Provider Unknown BLOOD BANK PRODUCT OR DERABLES Final Result [facility] * X-ray Portable Chest (10/18/2025 6:37 AM EST) Only the most recent of3 resultswithin the time period is included. Anatomical Region Laterality Modality Chest Radiographic Liseth [...] below level of diaphragms and outside the grlpr-wy-hgyj. Right internal jugular approach pulmonary artery catheter [...] courses below level of diaphragms andoutside the vqnea-ba-kupt. Right internal jugular approach pulmonaryartery catheter projects [...] leukoreduced, 1 Units (10/18/2025 6:17 AM EST) Only the most recent of2 resultswithin the time period is included. Product Code M5542G15 [facility] Unit Number [id number] [facility] Dispense Status Presumed Transfused_PT [facility] Blood Expiration Date [facility] Coding System BTLE030 [facility] Blood Bank Product Oskar Torres MD BLOOD BANK PRODUCT ORDERABLES Final Result [facility] * Prepare RBC, leukoreduced, 5 Units (10/18/2025 6:16 AM EST) Only the most recent of2 resultswithin the time period is included. Product Code I6269N72 [facility] Unit Number [id number] [facility] Dispense Status Presumed Transfused_PT [facility] Blood Expiration Date [facility] Coding System PTID007 [facility] Product Code I6939L19 [facility] Unit Number [id number] [facility] Dispense Status Presumed Transfused_PT [facility] Blood Expiration Date HCLL Coding System ZEBS964 [facility] Product Code D7943D93 [facility] Unit Number [id number] [facility] Dispense Status Presumed Transfused_PT [facility] Blood Expiration Date HCLL Coding System MMIV503 [facility] Product Code O1561D99 [facility] Unit Number [id number] [facility] Dispense Status Released from Crossmatch_RE [facility] Blood Expiration Date HCLL Coding System DGHL443 [facility] Product Code B0731L35 [facility] Unit Number [id number] [facility] Dispense Status Presumed Transfused_PT [facility] Blood Expiration Date HCLL Coding System XOSD392 [facility] Blood Bank Product Kassi INTERIANO BLOOD BANK PRODUCT ORDERABLES Final Result [facility] * Prepare Cryoprecipitate (10/18/2025 6:15 AM EST) Only the most recent of5 resultswithin the time period is included. Product Code K4779K42 [facility] Unit Number [id number] [facility] Dispense Status Presumed Transfused_PT [facility] Blood Expiration Date [facility] Coding System QOOR219 [facility] Attending Provider Unknown BLOOD BANK PRODUCT OR DERABLES Final Result [facility] * (ABNORMAL) Blood gas, arterial (10/18/2025 5:19 AM EST) Only the most recent of2 resultswithin the time period is included. O2 Sat, Arterial 97 10/18/2025 5:28 AM [facility] FIO2 40 10/18/2025 5:28 AM [facility] pH, Arterial 7.34(L) 7.35 - 7.45 10/18/2025 5:28 AM [facility] pCO2, Arterial 48(H) 35 - 45 mm Hg 10/18/2025 5:28 AM [facility] pO2, Arterial 84 80 - 100 mm Hg 10/18/2025 5:28 AM [facility] HCO3, Arterial 25 22 - 26 mmol/L 10/18/2025 5:28 AM [facility] CO2 Content,Arteri al 27 23 - 27 mmol/L 10/18/2025 5:28 AM [facility] Base Excess, Arterial -0.2 -2.0 - 3.0 mmol/L 10/18/2025 5:28 AM [facility] %HBO2, Arterial 94.1(L) 95.0 - 98.0 % 10/18/2025 5:28 AM EST [facility] Carboxyhemoglo bin, Arterial 2.5 % 10/18/2025 5:28 AM EST [facility] Comment: CARBOXYHEMOGLOBIN (CO) REFERENCE RANGES: Non-Smokers: <2 % Smokers: <8 % TOXIC: >20 % Methemoglobin, Arterial 0.5 0.0 - 1.5 % 10/18/2025 5:28 AM EST [facility] Blood, Arterial 10/18/2025 5:19 AM EST 10/18/2025 5:25 AM EST us Vani Drew MD LAB BLOOD ORDERABLES Final R esult Performing Organization Address City/State/[facility] [[email or web address]] Co de Phone Number [facility] [address] [place] [address], [facility] * XR Portable Feeding Tube Check [...] DO at 10/17/2025 11:50 PM EST Duarte Jackson MD IM DIAGNOSTIC IMAGI NG ORDERABLES Final Result * (ABNORMAL) TEG-Standard Global Hemostasis (Rapid TEG with Heparin Effect, Contains a Baseline TEG) (10/17/2025 10:50 PM EST) Only the most recent of2 resultswithin the time period is included. Pathologist [facility] Citrated Kaolin Reaction Time (TEGHEPARINASE) 12.7(H) 4.6 - 9.1 minutes 10/18/2025 12:03 AM EST [facility] Citrated Rapid Teg Maximum Amplitude (TEGHEPARINASE) 47.8(L) 52.0 - 70.0 mm 10/18/2025 12:03 AM EST [facility] Citrated Functional Fibrinogen Maximum Amplitude (TEGHEPARINASE) 16.8 15.0 - 32.0 mm 10/18/2025 12:03 AM EST [facility] Citrated Kaolin W/Heparinase Reaction Time (TEGHEPARINASE) 11.0(H) 4.3 - 8.3 minutes 10/18/2025 12:03 AM EST [facility] Citrated Kaolin K-Time (TEGHEPARINASE) 4.9(H) 0.8 - 2.1 minutes 10/18/2025 12:03 AM EST [facility] Citrated Kaolin Angle (TEGHEPARINASE) 40.0(L) 63.0 - 78.0 degrees 10/18/2025 12:03 AM EST [facility] Citrated Kaolin Maximum Amplitude (TEGHEPARINASE) 45.2(L) 52.0 - 69.0 mm 10/18/2025 12:03 AM EST [facility] Citrated Functional Fibrinogen- Fibrinogen Level (TEGHEPARINASE) 306.6 278.0 - 581.0 mg/dL 10/18/2025 12:03 AM EST [facility] Whole Blood (Citrate) 10/17/2025 10:50 PM EST 10/17/2025 10:55 PM EST Aspen Parr MD LAB BLOOD ORDERABLES Final Resul t Performing Organization Address [facility] [[email or web address]] Co de Phone Number [facility] [address] * Calcium Free, Serum (10/17/2025 10:50 PM EST) Free Calcium, Ser 4.76 4.40 - 5.40 mg/dL 10/17/2025 11:15 PM EST [facility] Comment:Free calcium levels vary inversely with pH by approximately 5% for each 0.1 unit of pH change. Assay results have been normalized to pH = 7.40. Serum 10/17/2025 10:5 0 PM EST 10/17/2025 10:55 PM EST Narrative [facility] - 10/17/2025 11:15 PM EST This test has been developed and its performance characteristics determined by [facility] which is certified under the Clinical Laboratory Improvement Amendment of 1988 (CLIA-88) to perform high complexity testing. The test has not been cleared or approved by the US Food and Drug Administration (FDA). The FDA has determined that such clearance is not necessary. The test should be used for clinical purposes and is not regarded as investigational. us Duarte Jackson MD LAB BLOOD ORDERABLES Final Result Performing Organization Address City/[facility]/ZIP Co de Phone Number [facility] [address] * Fibrinogen (10/17/2025 10:50 PM EST) Only the most recent of6 resultswithin the time period is included. Fibrinogen 253 218 - 406 mg/dL 10/17/2025 11:06 PM EST [facility] Plasma 10/17/2025 10:5 0 PM EST 10/17/2025 10:55 PM EST us Aspen Parr MD LAB BLOOD ORDERABLES Final Resul t [facility] [address] [facility]. [address] * POC Lactate (10/17/2025 9:25 PM EST) Only the most recent of8 resultswithin the time period is included. POC Lactate 1.50 0.50 - 2.20 mmol/L 10/17/2025 9:51 PM EST [facility] Blood, Arterial 10/17/2025 9 :25 PM EST 10/17/2025 9:51 PM EST us Vani Drew MD POINT OF CARE TEST ORDERABLE S Final Result Performing Organization Address [facility] [[email or web address]] Co de Phone Number [facility] [address] [facility]. [address] * POC TCO2 (10/17/2025 9:25 PM EST) Only the most recent of8 resultswithin the time period is included. POC TCO2, Arterial 23 23 - 27 mmol/L 10/17/2025 9:51 PM EST [facility] Blood, Arterial 10/17/2025 9 :25 PM EST 10/17/2025 9:51 PM EST us Vani Drew MD POINT OF CARE TEST ORDERABLE S Final Result Performing Organization Address City/[facility]/ZIP Co de Phone Number [facility] [address] [facility]. [address] * POC Sodium (10/17/2025 9:25 PM EST) Only the most recent of8 resultswithin the time period is included. POC Sodium 142 136 - 146 mmol/L 10/17/2025 9:51 PM EST [facility] Blood, Arterial 10/17/2025 9 :25 PM EST 10/17/2025 9:51 PM EST us Vani Drew MD POINT OF CARE TEST ORDERABLE S Final Result Performing Organization Address City/[facility]/ZIP Co de Phone Number [facility] [address] [facility]. [address] * POC Potassium (10/17/2025 9:25 PM EST) Only the most recent of8 resultswithin the time period is included. POC Potassium 3.7 3.5 - 5.3 mmol/L 10/17/2025 9:51 PM EST [facility] Blood, Arterial 10/17/2025 9:25 PM EST 10/17/2025 9:51 PM EST us Vani Drew MD POINT OF CARE TEST ORDERABLE S Final Result Performing Organization Address [facility] [[email or web address]] Co de Phone Number [facility] [address] [facility]. [address] * (ABNORMAL) POC PO2 (10/17/2025 9:25 PM EST) Only the most recent of8 resultswithin the time period is included. POC pO2, Arterial 161(H) 80 - 100 mm Hg 10/17/2025 9:51 PM EST [facility] Blood, Arterial 10/17/2025 9 :25 PM EST 10/17/2025 9:51 PM EST us Vani Drew MD POINT OF CARE TEST ORDERABLE S Final Result Performing Organization Address City/[facility]/ZIP Co de Phone Number [facility] [address] [facility]. [address] * POC PCO2 (10/17/2025 9:25 PM EST) Only the most recent of8 resultswithin the time period is included. POC pCO2, Arterial 38 35 - 45 mm Hg 10/17/2025 9:51 PM EST [facility] Blood, Arterial 10/17/2025 9 :25 PM EST 10/17/2025 9:51 PM EST Vani Drew MD POINT OF CARE TEST ORDERABLE S Final Result [facility] [address] * (ABNORMAL) POC O2 SAT (10/17/2025 9:25 PM EST) Only the most recent of8 resultswithin the time period is included. POC O2 Saturation, Arterial 99(H) 95 - 98 % 10/17/2025 9:51 PM EST [facility] Blood, Arterial 10/17/2025 9 :25 PM EST 10/17/2025 9:51 PM EST Vani Drew MD POINT OF CARE TEST ORDERABLE S Final Result Performing Organization Address City/[facility]/ZIP Co de Phone Number [facility] [address] * POC HCO3 (10/17/2025 9:25 PM EST) Only the most recent of8 resultswithin the time period is included. POC HCO3, Arterial 22 22 - 26 mmol/L 10/17/2025 9:51 PM EST [facility] Blood, Arterial 10/17/2025 9 :25 PM EST 10/17/2025 9:51 PM EST Vani Drew MD POINT OF CARE TEST ORDERABLE S Final Result [facility] [address] * (ABNORMAL) POC Chloride (10/17/2025 9:25 PM EST) Only the most recent of8 resultswithin the time period is included. POC Chloride 111(H) 98 - 110 mmol/L 10/17/2025 9:51 PM EST [facility] Blood, Arterial 10/17/2025 9 :25 PM EST 10/17/2025 9:51 PM EST Vani Drew MD POINT OF CARE TEST ORDERABLE S Final Result Performing Organization Address City/[facility]/ZIP Co de Phone Number [facility] [address] [place] [address]. [address] * (ABNORMAL) POC Base Excess (10/17/2025 9:25 PM EST) Only the most recent of8 resultswithin the time period is included. POC Base Excess, Arterial -3(L) -2 - 3 mmol/L 10/17/2025 9:51 PM EST [facility] Blood, Arterial 10/17/2025 9 :25 PM EST 10/17/2025 9:51 PM EST Vani Drew MD POINT OF CARE TEST ORDERABLE S Final Result Performing Organization Address City/[facility]/ZIP Co de Phone Number [facility] [address] [facility]. [address] * POC Anion Gap (10/17/2025 9:25 PM EST) Only the most recent of8 resultswithin the time period is included. POC Anion Gap, Arterial 9 3 - 16 mmol/L 10/17/2025 9:51 PM EST [facility] Blood, Arterial 10/17/2025 9 :25 PM EST 10/17/2025 9:51 PM EST us Vani Drew MD POINT OF CARE TEST ORDERABLE S Final Result [facility] [address] * POC Sample Type (10/17/2025 9:25 PM EST) Only the most recent of8 resultswithin the time period is included. POC Sample Type Arterial 10/17/2025 9:51 PM EST [facility] Blood, Arterial 10/17/2025 9 :25 PM EST 10/17/2025 9:51 PM EST Vani Drew MD POINT OF CARE TEST ORDERABLE S Final Result Performing Organization Address [facility] [[email or web address]] Co de Phone Number [facility] [address] [facility]. [address] * POC pH (10/17/2025 9:25 PM EST) Only the most recent of8 resultswithin the time period is included. POC pH, Arterial 7.37 7.35 - 7.45 10/17/2025 9:51 PM EST [facility] Blood, Arterial 10/17/2025 9 :25 PM EST 10/17/2025 9:51 PM EST us Vani Drew MD POINT OF CARE TEST ORDERABLE S Final Result Performing Organization Address [facility] [[email or web address]] Co de Phone Number [facility] [address] [facility]. [address] * (ABNORMAL) POC hematocrit (10/17/2025 9:25 PM EST) Only the most recent of8 resultswithin the time period is included. POC Hematocrit 26.0(L) 40 - 52 % 10/17/2025 9:51 PM EST [facility] Blood, Arterial 10/17/2025 9 :25 PM EST 10/17/2025 9:51 PM EST us Vani Drew MD POINT OF CARE TEST ORDERABLE S Final Result Performing Organization Address [facility] [[email or web address]] Co de Phone Number [facility] [address] * POC Ionized Calcium (10/17/2025 9:25 PM EST) Only the most recent of8 resultswithin the time period is included. POC Ionized Calcium 4.90 4.50 - 5.30 mg/dL 10/17/2025 9:51 PM EST [facility] Blood, Arterial 10/17/2025 9 :25 PM EST 10/17/2025 9:51 PM EST Vani Drew MD POINT OF CARE TEST ORDERABLE S Final Result Performing Organization Address [facility] [[email or web address]] Co de Phone Number [facility] [address] * (ABNORMAL) POC Glucose (10/17/2025 9:25 PM EST) Only the most recent of8 resultswithin the time period is included. POC Glucose, Arterial 227(H) 70 - 100 mg/dL 10/17/2025 9:51 PM EST [facility] Blood, Arterial 10/17/2025 9 :25 PM EST 10/17/2025 9:51 PM EST Vani Drew MD POINT OF CARE TEST ORDERABLE S Final Result Performing Organization Address City/[facility] [[email or web address]] Co de Phone Number [facility] [address] Hospital[facility]. [address] * (ABNORMAL) POC Hemoglobin (10/17/2025 9:25 PM EST) Only the most recent of8 resultswithin the time period is included. POC Hemoglobin 9.0(L) 14.0 - 18.0 g/dL 10/17/2025 9:51 PM EST [facility] Blood, Arterial 10/17/2025 9 :25 PM EST 10/17/2025 9:51 PM EST Vani Drew MD POINT OF CARE TEST ORDERABLE S Final Result Performing Organization Address City/[facility] [[email or web address]] Co de Phone Number [facility] [address] [facility]. [address] * (ABNORMAL) POC INR (10/17/2025 9:24 PM EST) Only the most recent of8 resultswithin the time period is included. Prothrombin Time INR, POC 2.3(H) 0.8 - 1.4 10/18/2025 12:08 AM EST [facility] Comment: Test results may vary using different testing platforms. Serial result monitoring should be performed using the same methodology. RECOMMENDED THERAPEUTIC RANGES USING INR : Stable oral anticoagulant therapy: 2.0 - 3.0 Mechanical prosthetic heart valve: 2.5 - 3.5 Recurrent acute myocardial infarction: 2.5 - 3.5 Blood 10/17/2025 9:24 PM EST 10/18/2025 12:07 AM EST Vani Drew MD POINT OF CARE TEST ORDERABLE S Final Result Performing Organization Address [facility] [[email or web address]] Co de Phone Number [facility] [address] [facility]. [address] * Transfuse Fresh Frozen Plasma (10/17/2025 9:17 PM EST) Only the most recent of5 resultswithin the time period is included. Shannan Salas MD NURSING TREATMENT ORDERABLES - BLOOD ADMIN Final Result * Transfuse Platelets (10/17/2025 9:01 PM EST) Only the most recent of3 resultswithin the time period is included. Slade Munoz MD NURSING TREATMENT ORDERABLES - B LOOD ADMIN Final Result * Transfuse Cryoprecipitate (10/17/2025 8:49 PM EST) Only the most recent of6 resultswithin the time period is included. Slade Munoz MD NURSING TREATMENT ORDERABLES - B LOOD ADMIN Final Result * (ABNORMAL) TEG-Bypass/ECMO/Liver HN (Factor function, Platelet/Fibrin Clot Strength w/Clot Breakdown, Heparinase In All Channels) (10/17/2025 8:31 PM EST) Only the most recent of4 resultswithin the time period is included. Citrated Kaolin Reaction Time (TEGECMOLIVER) 9.7(H) 4.6 - 9.1 minutes 10/17/2025 10:13 PM EST [facility] Citrated Kaolin W/Heparinase Reaction Time (TEGECMOLIVER) 3.4(L) 4.3 - 8.3 minutes 10/17/2025 10:13 PM EST [facility] Citrated Kaolin Maximum Amplitude (TEGECMOLIVER) 45.4(L) 52.0 - 69.0 mm 10/17/2025 10:13 PM EST [facility] Citrated Functional Fibrinogen W/Heparinase Maximum Amplitude(TEGEC MOLIVER) 18.0 15.0 - 34.0 mm 10/17/2025 10:13 PM EST [facility] Citrated Rapid Teg W/Heparinase Maximum Amplitude (TEGECMOLIVER) 40.5(L) 53.0 - 69.0 mm 10/17/2025 10:13 PM EST [facility] Citrated Kaolin w/Heparinase Percent Lysis (TEGECMOLIVER) 0.0 0.0 - 3.2 % 10/17/2025 10:13 PM EST [facility] Whole Blood (Citrate) 10/17/2025 8:31 PM EST 10/17/2025 8:40 PM EST Oskar Torres MD LAB BLOOD ORDERABLES Final Re sult [facility] [address] * Transfuse RBC (10/17/2025 5:34 PM EST) Only the most recent of5 resultswithin the time period is included. Slade Munoz MD NURSING TREATMENT ORDERABLES - B LOOD ADMIN Final Result * Surgical Pathology Exam (10/17/2025 5:20 PM EST) Tissue LIVER STRUCTURE / Unknown 10/17/2025 5:20 PM EST Narrative [facility] - 10/17/2025 12:00 AM EST CASE: [id number] PATIENT: DAVID SERRANO Clinical History: transplant liver Pre-Operative Diagnosis: end stage liver disease Post-Operative Diagnosis: same Specimen(s) Submitted: A. [place] liver and gallbladder; B. Right lobe post perfusion liver bx; C. Left lobe post perfusion liver bx CPT Code(s): 73254 X 2; 55846 X 1; 16600 X 7 Additional Information: FINAL DIAGNOSIS: Liver and gall bladder, pala, total hepatectomy with cholecystectomy: Liver: -Cirrhosis, mild [...] with the patient's name David Serrano and pala liver and gallbladder is a 782 gram, [...] no discrete masses or lesions are identified. General Maintenance Engineer sections are submitted in cassettes [id number] as follows: A1: General Maintenance Engineer gallbladder. A2: Hilar margins, en face. A3-A5: General Maintenance Engineer right lobe. A6-A8: General Maintenance Engineer left lobe with liver written on the side of the cassette in A8. (LAISHA Miranda/) B. Received in formalin, labeled with the patient's name David Serrano and right lobe post perfusion liver biopsy is a 1.6 cm in length x 0.1 cm in diameter red-brown tissue core, which is entirely submitted between blue biopsy sponges in cassette [id number]. (LAISHA Miranda/) C. Received in formalin, labeled with the patient's name David Serrano and left lobe post perfusion liver biopsy is a 1.3 cm in length x 0.1 cm in diameter red-brown fragmented tissue core, which is entirely submitted between blue biopsy sponges in cassette [id number]. (LAISHA Miranda/) Microscopic Description: Sixteen HE [...] Pathologist signing this report is located at [facility], [address] [place] [address], [place], [place], [facility], , CLIA ID: [id number] us Jesus Lomeli MD PATHOLOGY/CYTOLOGY ORDERABLES Final Result [facility] * (ABNORMAL) APTT, No Anticoagulant (10/17/2025 4:56 PM EST) Only the most recent of2 resultswithin the time period is included. aPTT 55.7(H) 25.5 - 35.0 seconds 10/17/2025 5:32 PM EST [facility] Plasma 10/17/2025 4:56 PM EST 10/17/2025 5:06 PM EST Slade Munoz MD LAB BLOOD ORDERABLES Final Resul t [facility] [address] * Routine Culture plus Stain (Surgical Swab) (10/17/2025 2:50 PM EST) Gram Stain Result Rare Polymorphonuclear Leukocytes Seen [facility] Gram Stain Result No Organisms Seen; [facility] Culture Result No Growth After 3 Days [facility] Surgical Swab PERITONEAL FLUID / Unknown 10/17/2025 2:50 PM EST Comment:1. Ascites-anaerobic , aerobic, and fungal Narrative [facility] - 10/20/2025 11:09 AM EST 1. Ascites-anaerobic, aerobic, and fungal 1. Ascites-anaerobic, aerobic, and fungal Vani Drew MD MICROBIOLOGY - GENERAL ORDER MARYA Final Result Performing Organization Address [facility] [[email or web address]] Co de Phone Number [facility] [address] * Anaerobic culture (Surgical Swab) (10/17/2025 2:50 PM EST) Culture Result No Anaerobes Isolated in 5 Days [facility] Surgical Swab PERITONEAL FLUID / Unknown 10/17/2025 2:50 PM EST Comment:1. Ascites-anaerobic , aerobic, and fungal Narrative [facility] - 10/22/2025 11:32 AM EST 1. Ascites-anaerobic, aerobic, and fungal 1. Ascites-anaerobic, aerobic, and fungal Vani Drew MD MICROBIOLOGY - GENERAL ORDER MARYA Final Result [facility] [address] [place] [address], [facility] * CENTRAL LINE SINGLE LUMEN PERFORMABLE, HC [...] PROCEDURE/MINOR SURGICAL ORDERAB LES Final Result * CENTRAL LINE SINGLE LUMEN PERFORMABLE, HC [...] post op PA catheter complications: None Result [facility] Slade Munoz MD IV THERAPY ORDERABLES Final Resu lt * Insert Arterial Line (10/17/2025 2:15 PM EST) Narrative Slade Munzo MD - 10/17/2025 2:15 PM EST Slaed Munoz MD 10/19/2025 9:29 AM Insert Arterial [...] tape, sterile dressing applied and sutured Result [facility] Slade Munoz MD IV THERAPY ORDERABLES Final Resu lt * Hepatitis C RNA, Quant Reflex to Genotyp (10/17/2025 10:19 AM EST) International Units Not Detected IU/mL 10/19/2025 2:12 PM EST [facility] Comment:Test methodology for HCV RNA quantification is an FDA-approved nucleic acid amplification assay. The Lower Limit of Quantitation (LLOQ) is 15 IU/mL. The linear range of the assay is 15-100,000,000 IU/mL. The Limit of Detection (LoD) is 12.0 IU/mL for EDTA plasma. The reference range is Not Detected. IU log10 See Note log 10 IU/mL 10/19/2025 2:12 PM EST [facility] Comment:HCV RNA not detected . Plasma 10/17/2025 10:1 9 AM EST 10/17/2025 11:09 AM EST Result [facility] Kassi Inman PA LAB BLOOD ORDERABLES Final Re sult [facility] [address] * Hepatitis A Antibody Total (10/17/2025 10:18 AM EST) Pathologist [facility] Anti-HAV Total (IgG + IgM) Reactive 10/17/2025 12:22 PM EST [facility] Serum 10/17/2025 10:1 8 AM EST 10/17/2025 10:46 AM EST Narrative [facility] - 10/17/2025 12:22 PM EST HAV antibodies detected Kassi INTERIANO LAB BLOOD ORDERABLES Final Re sult [facility] [address] * (ABNORMAL) Venous Blood Gas, Line/Syringe, STAT (10/17/2025 10:18 AM EST) Pathologist [facility] PH-Line Draw 7.37 7.32 - 7.42 10/17/2025 10:27 AM [facility] PCO2-Line Draw 46 41 - 51 mm Hg 10/17/2025 10:27 AM [facility] PO2-Line Draw 29 25 - 40 mm Hg 10/17/2025 10:27 AM [facility] HCO3-Line Draw 24 24 - 28 mmol/L 10/17/2025 10:27 AM [facility] CO2 Content-Line Draw 28 25 - 29 mmol/L 10/17/2025 10:27 AM [facility] Base Excess-Line Draw 0.9 -2.0 - 3.0 mmol/L 10/17/2025 10:27 AM [facility] %HBO2-Line Draw 38.5(L) 40.0 - 70.0 % 10/17/2025 10:27 AM [facility] Carboxyhgb-Rebecca e Draw 1.4 0.0 - 2.0 % 10/17/2025 10:27 AM [facility] Comment: CARBOXYHEMOGLOBIN (CO) REFERENCE RANGES: Non-Smokers: <2 % Smokers: <8 % TOXIC: >20 % Methemoglobin- Line Draw 0.6 0.0 - 1.5 % 10/17/2025 10:27 AM EST [facility] Blood, Venous 10/17/2025 10: 18 AM EST 10/17/2025 10:24 AM EST [facility] LAB BLOOD ORDERABLES Final Re sult [facility] [address] * CMV IgG Antibody (10/17/2025 10:18 AM EST) CMV IgG Negative Negative 10/17/2025 12:16 PM EST [facility] CMV IGG NUM <0.20 0.00 - 0.59 U/mL 10/17/2025 12:16 PM EST [facility] Serum 10/17/2025 10:1 8 AM EST 10/17/2025 10:46 AM EST [facility] BLOOD ORDERABLES Final Re sult Performing Organization Address [facility] [[email or web address]] Co de Phone Number [facility] [address] [facility]. [address] * Hepatitis B Core Antibody (10/17/2025 10:18 AM EST) Hep B Core Total Ab Nonreactive Nonreactive 10/17/2025 12:17 PM EST [facility] Comment:Health Department no tified in accordance with reportable infectious disease guidelines. Serum 10/17/2025 10:1 8 AM EST 10/17/2025 10:46 AM EST Narrative [facility] - 10/17/2025 12:17 PM EST A nonreactive final interpretation indicates that anti-HBc antibodies were not detected in the sample; it is possible that the individual is not infected with HBV. [facility] LAB BLOOD ORDERABLES Final Re sult Performing Organization Address City/[facility]/ZIP Co de Phone Number [facility] [address] [facility]. [address] * Hepatitis C Antibody (10/17/2025 10:18 AM EST) HCV Ab Nonreactive Nonreactive 10/17/2025 12:25 PM EST [facility] Comment:Health Department no tified in accordance with reportable infectious disease guidelines. Serum 10/17/2025 10:1 8 AM EST 10/17/2025 10:46 AM EST Narrative [facility] - 10/17/2025 12:25 PM EST Antibodies to HCV not detected; does not exclude the possibility of exposure to HCV. Kassi INTERIANO LAB BLOOD ORDERABLES Final Re sult [facility] [address] [facility]. [address] * (ABNORMAL) Jose-Beard Virus VCA IgG Ab (10/17/2025 10:18 AM EST) EBV VCA IgG Positive( A) Negative 10/17/2025 12:18 PM EST [facility] Comment:Presence of detectab le VCA IgG antibodies. A positive result indicates current or past exposure to Jose-Beard virus. EBV IGG NUM >750.00(H ) 0.00 - 17.99 U/mL 10/17/2025 12:18 PM EST [facility] Serum 10/17/2025 10:1 8 AM EST 10/17/2025 10:46 AM EST [facility] LAB BLOOD ORDERABLES Final Re sult [facility] [address] [facility]. [address] * ABO/Rh (10/17/2025 10:18 AM EST) Only the most recent of2 resultswithin the time period is included. ABO Grouping A 10/17/2025 10:53 AM EST [facility] Rh Type Positive 10/17/2025 10:53 AM EST [facility] Blood 10/17/2025 10:1 8 AM EST 10/17/2025 10:26 AM EST Kassi INTERIANO BLOOD BANK TEST ORDERABLES Fi nal Result Performing Organization Address [facility] [[email or web address]] Co de Phone Number [facility] [address] [place] [address] * Vitamin D 25 Hydroxy (10/17/2025 10:18 AM EST) Vit D, 25-Hydroxy 39.3 30.0 - 100.0 ng/mL 10/17/2025 12:15 PM EST [facility] Comment: Vitamin D deficiency has been defined by the [employer] of Medicine (IOM) and an Endocrine Society [...] ORDERABLES Final Re sult Performing Organization Address City/[facility]/ZIP Co de Phone Number [facility] [address] [place] [address]. [address] * (ABNORMAL) Differential (10/17/2025 10:18 AM EST) Neutrophils Relative 45.0 40.0 - 80.0 % 10/17/2025 10:59 AM EST [facility] Lymphocytes Relative 34.7 15.0 - 45.0 % 10/17/2025 10:59 AM EST [facility] Monocytes Relative 12.9(H) 0.0 - 12.0 % 10/17/2025 10:59 AM EST [facility] Eosinophils Relative 6.4 0.0 - 8.0 % 10/17/2025 10:59 AM EST [facility] Basophils Relative 1.0 0.0 - 1.0 % 10/17/2025 10:59 AM EST [facility] nRBC 0 0 - 0 /100 WBC 10/17/2025 10:59 AM EST [facility] Neutrophils Absolute 1,845 1,520 - 8,640 /uL 10/17/2025 10:59 AM EST [facility] Lymphocytes Absolute 1,423 570 - 4,860 /uL 10/17/2025 10:59 AM EST [facility] Monocytes Absolute 529 0 - 1,296 /uL 10/17/2025 10:59 AM EST [facility] Eosinophils Absolute 262 0 - 864 /uL 10/17/2025 10:59 AM EST [facility] Basophils Absolute 41 0 - 108 /uL 10/17/2025 10:59 AM EST [facility] Whole Blood 10/17/2025 10:1 8 AM EST 10/17/2025 10:46 AM EST Kassi INTERIANO LAB BLOOD ORDERABLES Final Re sult [facility] [address] [address], [facility] * Toxoplasma gondii Antibody, IgG (10/17/2025 10:18 AM EST) Only the most recent of2 resultswithin the time period is included. Toxoplasma Gondii IgG <3.0 0.0 - 7.1 IU/mL 10/18/2025 4:54 AM EST [facility] Comment: Negative <7.2 Equivocal 7.2 - 8.7 Positive >8.7 Serum 10/17/2025 10:1 8 AM EST 10/18/2025 5:06 AM EST Narrative [facility] - 10/18/2025 5:06 AM EST PERFORMED AT: [facility] [id number] GLOVE OPERATOR: Mateo Miller, PhD PHONE: [phone] us Kassi INTERIANO LAB BLOOD ORDERABLES Final Re sult [facility] [address] * HIV 1+2 Antibody/Antigen with Reflex (10/17/2025 10:18 AM EST) HIV 1+2 AB/AGN Nonreactive Nonreactive 10/17/2025 12:16 PM EST [facility] Serum 10/17/2025 10:1 8 AM EST 10/17/2025 10:46 AM EST Narrative [facility] - 10/17/2025 12:16 PM EST \HIVRNR Kassi INTERIANO LAB BLOOD ORDERABLES Final Re sult Performing Organization Address [facility] [[email or web address]] Co de Phone Number [facility] [address] * (ABNORMAL) Hepatitis B Surface Antibody, Quantitati (10/17/2025 10:18 AM EST) Hep B S Ab Reactive( A) Nonreactive 10/17/2025 12:29 PM EST [facility] HBSAB NUMBER 260.00(H) 0.00 - 7.99 mIU/mL 10/17/2025 12:29 PM EST [facility] Serum 10/17/2025 10:1 8 AM EST 10/17/2025 10:46 AM EST Narrative [facility] - 10/17/2025 12:29 PM EST Individual is considered immune to HBV infection. [facility] LAB BLOOD ORDERABLES Final Re sult [facility] [address] [facility]. [address] * Hepatitis B surface antigen (10/17/2025 10:18 AM EST) Hep B Surface Ag Nonreactive Nonreactive 10/17/2025 12:21 PM EST [facility] Comment:Health Department no tified in accordance with reportable infectious disease guidelines. Serum 10/17/2025 10:1 8 AM EST 10/17/2025 10:46 AM EST Narrative [facility] - 10/17/2025 12:21 PM EST Specimen is considered negative for HBsAg. Kassi INTERIANO LAB BLOOD ORDERABLES Final Re sult Performing Organization Address City/[facility]/ZIP Co de Phone Number [facility] [address] [facility]. [address] * Antibody Screen (10/17/2025 10:18 AM EST) Antibody Screen Negative 10/17/2025 11:09 AM EST [facility] Blood 10/17/2025 10:1 8 AM EST 10/17/2025 10:26 AM EST [facility] - 10/17/2025 11:17 AM EST Testing performed by [facility] Kassi INTERIANO BLOOD BANK TEST ORDERABLES Fi nal Result Performing Organization Address [facility] [[email or web address]] Co de Phone Number [facility] [address] [facility]. [address] * Hemoglobin A1C (10/17/2025 10:18 AM EST) Only the most recent of2 resultswithin the time period is included. Hemoglobin A1C 4.0 4.0 - 5.6 % 10/17/2025 1:42 PM EST [facility] Comment: Hemoglobin A1c Interpretation Guidelines: [...] INTERIANO LAB BLOOD ORDERABLES Final Re sult [facility] [address] [place] [address], [facility] * (ABNORMAL) Urinalysis w/Rfl to Microscopic (09/24/2025 2:11 PM EST) Color, UA Yellow Yellow,Straw 09/24/2025 3:25 PM EST [facility] Clarity, UA Cloudy(A) Clear 09/24/2025 3:25 PM EST [facility] Specific [place], UA 1.019 1.005 - 1.035 09/24/2025 3:25 PM EST [facility] pH, UA 6.0 5.0 - 8.0 09/24/2025 3:25 PM EST [facility] Protein, UA 30(A) Negative mg/dL 09/24/2025 3:25 PM EST [facility] Glucose, UA Negative Negative mg/dL 09/24/2025 3:25 PM EST [facility] Ketones, UA Negative Negative mg/dL 09/24/2025 3:25 PM EST [facility] Bilirubin, UA Negative Negative 09/24/2025 3:25 PM EST [facility] Blood, UA Large(A) Negative 09/24/2025 3:25 PM EST [facility] Nitrite, UA Negative Negative 09/24/2025 3:25 PM EST [facility] Urobilinogen, UA <2.0 0.2 - 1.9 mg/dL 09/24/2025 3:25 PM EST [facility] Leukocyte Esterase, UA Large(A) Negative 09/24/2025 3:25 PM EST [facility] RBC, UA 61(H) 0 - 3 /HPF 09/24/2025 3:25 PM EST [facility] WBC, UA >100(H) 0 - 5 /HPF 09/24/2025 3:25 PM EST [facility] Squam Epithel, UA 1 0 - 5 /HPF 09/24/2025 3:25 PM EST [facility] Bacteria, UA Rare(A) None Seen /HPF 09/24/2025 3:25 PM EST [facility] Mucus, UA Present(A) None Seen /HPF 09/24/2025 3:25 PM EST [facility] Urine 09/24/2025 2:11 PM EST 09/24/2025 2:51 PM EST us Nigel Reaves MD URINE ORDERABLES Final Result Performing Organization Address [facility]/ZIP Co de Phone Number [facility] [address] [place] [address]. [address] * Urine culture (09/24/2025 2:11 PM EST) Culture Result No Growth [facility] Midstream Urine URINE SPECIMEN / Unknown 09/24/2025 2:11 PM EST 09/24/2025 3:25 PM EST us Nigel Reaves MD MICROBIOLOGY - GENERAL ORDERABLE S Final Result Performing Organization Address [facility] [[email or web address]] Co de Phone Number [facility] [address] [place] [address]. [address] * (ABNORMAL) MMR(IgG) Panel (Measles, Mumps, Rubella) (09/10/2025 5:03 PM EDT) Mumps IgG Positive 09/10/2025 11:51 PM EDT [facility] MUMPS IGG NUM >300.00(H) 0.0 - 8.9 U/mL 09/10/2025 11:51 PM EDT [facility] Rubella IgG Scr Positive 09/10/2025 11:51 PM EDT [facility] RUB NUM 30.20(H) 0.0 - 0.8 INDEX 09/10/2025 11:51 PM EDT [facility] Rubeola Ab, IgG Positive 09/10/2025 11:50 PM EDT [facility] RUB IGG NUM >300.00(H) 0.00 - 13.40 U/mL 09/10/2025 11:50 PM EDT [facility] Serum 09/10/2025 5:03 PM EDT 09/10/2025 10:26 PM EDT Narrative [facility] - 09/10/2025 11:51 PM EDT [...] MD LAB BLOOD ORDERABLES Final Resu lt [facility] [address] [facility]. [address] * Syphilis Screening (Trepia) (09/10/2025 5:03 PM EDT) Treponema Pallidum Negative Negative 09/10/2025 11:55 PM EDT [facility] Comment: No serological evidence of infection with Treponema pallidum (incubating or early primary syphilis cannot be excluded). Serum 09/10/2025 5:03 PM EDT 09/10/2025 10:26 PM EDT Navi Sims MD LAB BLOOD ORDERABLES Final Resu lt Performing Organization Address City/[facility]/ZIP Co de Phone Number [facility] [address] [facility] * QuantiFERON TB2 Ag (09/10/2025 5:03 PM EDT) QuantiFERON TB2 Ag Value 0.09 09/12/2025 1:19 PM EDT [facility] Plasma 09/10/2025 5:03 PM EDT 09/10/2025 6:29 PM EDT Navi Sims MD LAB BLOOD ORDERABLES Final Resu lt [facility] [address] * QuantiFERON TB1 Ag (09/10/2025 5:03 PM EDT) QuantiFERON TB1 Ag Value 0.08 09/12/2025 1:19 PM EDT [facility] Plasma 09/10/2025 5:03 PM EDT 09/10/2025 6:29 PM EDT Navi Sims MD LAB BLOOD ORDERABLES Final Resu lt Performing Organization Address City/[facility]/ZIP Co de Phone Number [facility] [address] [facility]. [address] * QuantiFERON Nil (09/10/2025 5:03 PM EDT) [facility] QuantiFERON Nil 0.02 1:19 PM EDT [facility] Plasma 09/10/2025 5:03 PM EDT 09/10/2025 6:29 PM EDT Navi Sims MD LAB BLOOD ORDERABLES Final Resu lt Performing Organization Address City/[facility] [[email or web address]] Co de Phone Number [facility] [address] [facility] * QuantiFERON Mitogen (09/10/2025 5:03 PM EDT) [facility] QuantiFERON Interpretation Negative Negative 09/12/2025 1:19 PM EDT [facility] Comment:Negative result pilar cates M. tuberculosis infection is NOT likely. Negative results do not preclude tuberculosis infection (especially in immunosuppressed patients). Negative results have a TB antigen minus Nil value less than 0.35 IU/mL. In cases with high suspicion of disease, retesting or additional testing with medical evaluation may be useful. QuantiFERON Mitogen 8.77 09/12 1:19 PM EDT [facility] Plasma 09/10/2025 5:03 PM EDT 09/10/2025 6:29 PM EDT Narrative [facility] - 09/12/2025 1:19 PM EDT [...] ORDERABLES Final Resu lt Performing Organization Address City/[facility]/ZIP Co de Phone Number [facility] [address] [facility]. [address] * (ABNORMAL) Strongyloides Ab (09/10/2025 5:03 PM EDT) [facility] Strongyloides Ab Positive( A) Negative 09/17/2025 2:56 PM EST [facility] Serum 09/10/2025 5:03 PM EDT 09/17/2025 3:07 PM EST [facility] - 09/17/2025 3:07 PM EST PERFORMED AT: [address] [id number] GLOVE OPERATOR: Kevin Holguin MD PHONE: [phone] Navi Sims MD LAB BLOOD ORDERABLES Final Resu Performing Organization Address City/[facility]/ZIP Co de Phone Number [facility] [address] [facility]. [address] * AFP tumor marker (09/10/2025 5:03 PM EDT) [facility] AFP-Tumor Marker 2.0 0.0 - 9.0 ng/mL 09/10/2025 8:52 PM EDT [facility] Serum 09/10/2025 5:03 PM EDT 09/10/2025 6:42 PM EDT Narrative [facility] - 09/10/2025 8:52 PM EDT The testing method for AFP is a chemiluminescent immunoassay manufactured by [employer] Concentrations of AFP obtained by different assay methods or kits may vary and cannot be used interchangeably. AFP results cannot be interpreted as absolute evidence of the presence or absence of malignant disease. Buddy Zimmerman MD LAB BLOOD ORDERABLES Final Resul t Performing Organization Address City/[facility] [[email or web address]] Co de Phone Number [facility] [address] * (ABNORMAL) Varicella zoster antibody, IgG (09/10/2025 5:03 PM EDT) Pathologist [facility] Varicella IgG Positive( A) Negative S/CO 09/10/2025 11:49 PM EDT [facility] Comment:Result indicates the presence of detectable VZV IgG antibodies. A positive result is generally indicative of exposure to the pathogen or administration of specific immunoglobulins, but it is no indication of active infection or stage of disease. This test is not approved for determining vaccine-induced immunity to varicella zoster virus. VZV NUM 15.50(H) 0.00 - 0.99 S/CO 09/10/2025 11:49 PM EDT [facility] Serum 09/10/2025 5:03 PM EDT 09/10/2025 10:26 PM EDT Navi Sims MD LAB BLOOD ORDERABLES Final Resu lt Performing Organization Address [facility] [[email or web address]] Co de Phone Number [facility] [address] [facility]. [address] * TSH (Thyroid Stimulating Hormone) (09/10/2025 5:03 PM EDT) Pathologist [facility] TSH 2.85 0.45 - 4.12 uIU/mL 09/11/2025 12:13 AM EDT [facility] Serum 09/10/2025 5:03 PM EDT 09/10/2025 6:42 PM EDT Buddy Zimmerman MD LAB BLOOD ORDERABLES Final Resul t Performing Organization Address City/[facility]/ZIP Co de Phone Number [facility] [address] [facility] [place] [address], [place] * (ABNORMAL) Lipid Profile (09/10/2025 5:03 PM EDT) Non-HDL Cholesterol, Calculated 109 0 - 129 mg/dL 09/10/2025 8:21 PM EDT [facility] Comment: Desirable: < 130 mg/dL Above Desirable: 130-159 mg/dL Borderline High: 160-189 mg/dL High: 190-219 mg/dL Very High: > 219 mg/dL Cholesterol, Total 135 0 - 200 mg/dL 09/10/2025 8:21 PM EDT [facility] Triglycerides 60 10 - 149 mg/dL 09/10/2025 8:21 PM EDT [facility] HDL 26(L) 60 - 92 mg/dL 09/10/2025 8:21 PM EDT [facility] Comment: LIPID PROFILE INTERPRETATION CHOLESTEROL,TOTAL(mg/dL) [...] LDL Cholesterol 97 mg/dL 8:21 PM EDT [facility] Plasma 09/10/2025 5:03 PM EDT 09/10/2025 5:52 PM EDT Narrative [facility] - 09/10/2025 8:21 PM EDT Must the patient be fasting for this test?->No LDL cholesterol calculated using the Friedewald equation. us Buddy Zimmerman MD LAB BLOOD ORDERABLES Final Resul t [facility] [address] [place] [address], [facility] * ECG 12-Lead (MUSE) (09/10/2025 12:14 PM EDT) 09/10/2025 12:1 4 PM EDT Narrative MUSE - 09/10/2025 3:28 PM EDT Ventricular Rate: 64 BPM Atrial Rate: 64 BPM P-R Interval: 190 ms QRS Duration: 84 ms QT: 464 ms QTc: 478 ms P Holabird: 27 degrees R Holabird: 58 degrees T Holabird: 22 degrees Diagnosis Line: NORMAL SINUS RHYTHM [...] within the right upper lobe with downstream [id number] within the paramedian right upper lobe apex. [...] for comparison to an examination performed here. Provider Not In System [facility] [place] ORDERABLES Final R esult * US Outside Exam (09/08/2025 8:34 PM EDT) Only the most recent of2 resultswithin the time period is included. Narrative 09/08/2025 8:34 PM EDT Images associated with this accession number were presented to us for comparison to an examination performed here. Provider Not In System [facility] US ORDERABLES Final R esult * (ABNORMAL) Renal Function Panel w/o EGFR (08/29/2025) Glucose 113 BUN 11 CO2 27(A) 13 - 22 mmol/L Creatinine 0.9 Potassium 4.4 Sodium 139 Chloride 109 Calcium 8.2 EGFR 85 mg/dL Albumin 2.2(A) 3.5 - 5.0 g/dL Blood Historical Provider LAB BLOOD ORDERABLES Nadia crockett Result from Last 3 Months Insurance BLUE ACCESS BLUE ACCESS TRANSPLANT GLOBAL Member Subscriber Plan / Payer ( fective 2025-2025) Name:David Serrano Relation to Subscriber:Self Name:David Serrano Payer ID:[id number] Group ID:Not on file Type:Transplant Address: [address] [place] [id number] Advance Directives For more information, please contact: [phone] Documents on File Type Date Recorded 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
--- OUTSIDE RECORDS SUMMARY | 2025-10-24 07:22 | XMS_ITS | Encounter Summary ---
Author Organization Healthcare Address [address] [place] [address] Care Team Providers Care Systems Developer Name Role Phone Ruma Hernández COLD ROLLING COORDINATOR Unavailable [phone] Chris Medel MD Primary Care Provider [phone] Encounter Details Date Type Department Care Team (Late st Contact Info) Description 10/16/2025 Results Follow-Up [facility] [address] [place] [phone] Meaghan Le, RN [id number] [address] [place] [address] Social History Tobacco Use Types Packs/Day Years [...] How often do you attend [facility] or temple services? More than 4 times per year 02/19/2025 Do you belong to any clubs o r organizations such as sikh groups, unions, Lopolyternal or athletic groups, or school groups? Yes [...] and heating? Not hard at all 06/15/2025 [facility] [...] drink first t luisa in the morning (EYE-TA[employer]ICAL AIR [employer]) to steady your nerves or to get rid of a hangover? 0 06/14/2025 CAGE Questionnaire Score 0 025 Utilities Answer Date Recorded In the past 12 months has th e [employer], gas, oil, or water Triage threatened to shut off services in your [...] E [facility], [address] [place] [address] Suhail Brock MD [address] [place] [phone] 12/12/2025 8:30 AM EST Clinical Support [facility] [address] [place] [address] 12/12/2025 10:00 AM EST Office Visit [facility] [address] [place] [phone] Portia Maguire MD [address] [place] [address] documented as of this encounter Visit Diagnoses [...] documented as of this encounter Care Teams Systems Developer Relationship Specialty [place] [id number] PCP - General 03/14/25 Ruma Hernández APRN [address] [facility] [address] [place] [address] Referring Physician Gastroenterology 07/30/23 documented as of this encounter
--- OUTSIDE RECORDS SUMMARY | 2025-10-24 07:22 | XMS_ITS | Encounter Summary ---
Author Organization [facility] Address [address] [place] [id number] Care Team Providers Care Spline Rolling Machine Job Setter Name Role Phone System, Provider Not [...] release of HIV test results or diagnoses. [id number] Health Encounter Details Date Type Department Care Team (Late st Contact Info) Description 10/17/2025 Chart Note [facility] Transplant at [address] [phone] Maeve Hubbard, RN Per Dr Drew, patient received whole liver with no extra vessels on Social History Tobacco Use Types Packs/Day Years [...] Assessment Author Peripheral Vascular (WDL) X 10/17/2025 9:39 AM EST Yvette Durham RN documented as of this encounter Progress Notes * Maeve Hubbard RN - 10/17/2025 9:[address] Drew, patient received whole liver with no extra vessels on 10/17/2025. EPIC and UNOS updated. documented in this encounter Plan of Treatment Not on file documented as of this encounter Visit Diagnoses Not on filedocumented in this encounter Additional Health Concerns Assessment Noted Time PHQ-9 Depression Total Score: 8 09/10/20 25 11:09 AM EDT documented as of this encounter Care Teams Spline Rolling Machine Job Setter Relationship Specialty Start Date End Date System, Provider Not In PCP - General 09/10/25 documented as of this encounter
--- OUTSIDE RECORDS SUMMARY | 2025-10-24 07:22 | XMS_ITS | Encounter Summary ---
Author Organization [facility] Address [address] [place] [address] Care Team Providers Care Oil Refinery Process Technician Name Role Phone Ruma Hernández PRINCIPAL TECHNICAL SPECIALIST Unavailable [phone] Chris Medel MD Primary Care Provider [phone] Reason for Visit * Reason Onset Date Comments HCN - Patient Message 10/15/2025 Encounter Details Date Type Department Care Team ([facility] Contact Info) Description 10/15/2025 Telephone [facility] Nephrology, Bone [facility] Mineral Metabolism [address], [address] [place] [address] Mousatpha Katz MD [address] [place] [address] HCN - Patient Message Social History Tobacco Use Types Packs/Day Years [...] you attend [facility] or [employer] services? More than 4 times per year 02/19/2025 Do you belong to any clubs o r organizations such as evangelical groups, unions, [employer] or athletic groups, or school groups? Yes [...] you attend [facility] or [employer] services? More than 4 times per year 06/15/2025 Do you belong to any clubs o r organizations such as evangelical groups, unions, [employer] or athletic groups, or school groups? Yes [...] and heating? Not hard at all 06/15/2025 [facility] [place] of Occupat ional Health - Occupational Stress [...] first t luisa in the morning (EYE-ANIMAL PHYSIOLOGIST) to steady your nerves or to get rid of a hangover? 0 06/14/2025 CAGE Questionnaire Score 0 025 Utilities Answer Date Recorded In the past 12 months has th e [employer], gas, oil, or water company threatened to [...] encounter Miscellaneous Notes * Telephone Encounter - Marj Rutledge - 10/15/2025 2:47 PM EST Clinical Concern/Question Reason for Call: calling to r/s his 10/18 visit. Best contact number: [phone] (mobile) Optimal time of day to reach caller: ANYTIME Additional comments/information from caller: Note: Please do not reply to this message. Follow-up communication and further actions as a result of this message need to be communicated with the patient directly, if the patient is not active onMyChart. If the patient is active on MyChart, they will receive notification of the communication/outcome via [employer]. documented in this encounter Plan of Treatment Upcoming Encounters Date Type Department Care Team (Late st Contact Info) Description 11/27/2025 3:45 PM EST Office Visit Medical Office Building Urology [address], [address] [place] [address] Suhail Brock MD [address] [facility] [address] [place] [address] 12/12/2025 8:30 AM EST Clinical Support [facility] [address] [place] [address] 12/12/2025 10:00 AM EST Office Visit [facility] Transplant [place] [address] [facility] [address] [place] [address] Portia Maguire MD [address] [place] [address] documented as of this [...] as of this encounter Care Teams Oil Refinery Process Technician Relationship Specialty [place] [address] PCP - General 03/14/25 Ruma Hernández APRN [address] [place] [address] [address] [place] [address] Referring Physician Gastroenterology 07/30/23 documented as of this encounter
--- OUTSIDE RECORDS SUMMARY | 2025-10-24 07:22 | XMS_ITS | Encounter Summary ---
Author Organization [facility] Address [address] [place] [address] Care Team Providers Care Mixing Supervisor Name Role Phone System, Provider Not [...] release of HIV test results or diagnoses. [id number] Health Encounter Details Date Type Department Care Team (Late st Contact Info) Description 10/18/2025 Chart Note [facility] Liver Transplant at [address] [address] Giovanna June, RN I introduced myself as inpatient liver client project coordinator, explained Social History Tobacco Use Types Packs/Day Years [...] in a group home (including now)? No 10/17/2025 Utilities Answer [...] as of this encounter Progress Notes * Giovanna June RN - 10/18/2025 6:47 AM EST I introduced myself as inpatient liver client project coordinator, explained role and provided my contact information. Initial Post-Transplant Education and discharge planning discussed with patient and their caregiver/support persons, , Stacy. [employer] discharge on 10/22/25. Communication provided to the multidisciplinary care team. Patient lives with Stacy who will be the primary caregiver and it was confirmed that additional support will be provided by family and friends. Patient and caregiver/support person(s)were provided with an overview of post-transplant care and the discharge process. A Post liver Transplant folder, and the link to Living with your Transplant were provided. I encouraged them all to review the information before our education session. I plan to meet with patient and caregiver team for additional transplant education and reinforcement on 10/19/25 @ 1100. David Pop has Crystal on his phone already, instructions provided for video visits. Educational materials were emailed to Stacy. Additionally, a video regarding the process for packing their pillbox at discharge emailed to the caregiver. They were highly encouraged to watch the video prior to discharge. documented in this encounter Plan of Treatment Not on file documented as of this encounter Visit Diagnoses Not on filedocumented in this encounter Additional Health Concerns Assessment Noted Time PHQ-9 Depression Total Score: 8 09/10/20 11:09 AM EDT documented as of this encounter Care Teams Mixing Supervisor Relationship Specialty Start Date End Date System, Provider Not In PCP - General 09/10/25 documented as of this encounter
--- OUTSIDE RECORDS SUMMARY | 2025-10-24 07:24 | XMS_ITS | Clinical Summary ---
Author Organization [facility] Address [address] [place] [address] Care Team Providers Care Home Stereo Equipment Installer Name Role Phone ToniUrban morataya DO Primary Care Provider [phone] Allergies Active Allergy Reactions Criticality Noted Date [...] Recently Relevant to Health Maintenance Insurance [facility] PPO Care Teams Home Stereo Equipment Installer Relationship Specialty Start Date End Date Urban Brantley DO [address] [place], [place] [id number] PCP - General Internal Medicine 03/22/23
--- OUTSIDE RECORDS SUMMARY | 2025-10-24 07:24 | XMS_ITS | Encounter Summary ---
Author Organization [facility] Address [address] [place] [address] Care Team Providers Care Race Board Attendant Name Role Phone System, Provider Not [...] release of HIV test results or diagnoses. [id number] Health Encounter Details Date Type Department Care Team (Late st Contact Info) Description 10/03/2025 Telephone [facility] Liver Transplant at [address] [address] Pb Sy, RN Social History Tobacco Use [...] well as Bed Board, OR Charge, Nursing Bulk Station Agent, blood bank and Sicu charge. documented in this encounter Plan of Treatment Not on file documented as of this encounter Visit Diagnoses Not on filedocumented in this encounter Additional Health Concerns Assessment Noted Time PHQ-9 Depression Total Score: 8 09/10/20 11:09 AM EDT documented as of this encounter Care Teams Race Board Attendant Relationship Specialty Start Date End Date System, Provider Not In PCP - General 09/10/25 documented as of this encounter
--- OUTSIDE RECORDS SUMMARY | 2025-10-24 07:24 | XMS_ITS ---
Author Organization Unknown ENCOUNTERS Encounter Performer Location Date Diagnosis Diagnosis Status Inpatient [place] [address] [place] [address] [id number] [facility] [address] [place] [address] [id number] Emergency [place] [address] [place] [address] [id number] A Pre Admit [address] [place] [address] [id number] Pre Admit [address] [place] [address] [id number] Emergency [place] [address] [place] [address] [id number] [facility] *Note: Encounters from your own facility or health system may be excluded. Allergies, Adverse Reactions, Alerts Allergen Type Severity Identification Date lisinopril drug allergy 1 [id number] atorvastatin drug allergy 3 [id number] Medications Name Date Quantity Days Supplied GPI Number
--- OUTSIDE RECORDS SUMMARY | 2025-10-24 07:24 | XMS_ITS | Encounter Summary ---
Author Organization [facility] Address [address] [place] [address] Care Team Providers Care Band Tumbler Name Role Phone System, Provider Not In [...] release of HIV test results or diagnoses. [id number] Health Encounter Details Date Type Department Care Team (Late st Contact Info) Description 09/25/2025 Chart Note [facility] Liver Transplant at [address] [address] Chapito Alcantar RN UNOS VERIFICATION CHECK FORM [...] Multidisciplinary Team documentation Initial Hepatology assessment aw transfer and line up worker within the last year aw Dietitian [...] nlc Physical Capacity nlc Working for Income [facility] Multidisciplinary Team documentation Initial Hepatology assessment nlc transfer and line up worker within the last year nlc Dietitian within the last year nlc Finance within the last year nlc Pharmacy within the last year nl Initial surgery assessment nlc RN coordinator EDU documentation nlc Book marked labs/pertinent data (Regulatory) [facility] documented in this encounter Plan of [...] as of this encounter Care Teams Band Tumbler Relationship Specialty Start Date End Date System, Provider Not In PCP - General 09/10/25 documented as of this encounter
--- OUTSIDE RECORDS SUMMARY | 2025-10-24 07:24 | XMS_ITS | Encounter Summary ---
Author Organization [facility] Address [address] [place] [address] Care Team Providers Care Yard Warehouse Worker Name Role Phone Ruma Hernández REGULATORY AFFAIRS CONSULTANT Unavailable [phone] Chris Medel MD Primary Care Provider [phone] Reason for Visit * Reason Comments Med Refill Encounter Details Date Type Department Care Team (Late st Contact Info) Description 10/02/2025 Refill [facility] [address] [place] [address] Portia Maguire MD [address] [place] [address] Pre-liver transplant, listed (Primary Dx); [...] r organizations such as tenriism groups, unions, [employer] or athletic groups, or school groups? Yes [...] r organizations such as tenriism groups, unions, [employer] or athletic groups, or school groups? Yes [...] hard at all 06/15/2025 [facility] of Occupat ional Health - Occupational Stress [...] drink first t luisa in the morning (EYE-JOB PLACEMENT SPECIALIST) to steady your nerves or to [...] Upcoming Encounters Date Type Department Care Team ([facility] st Contact Info) Description 11/27/2025 3:45 PM EST Office Visit Medical Office Building Urology [address] [facility], [address] [place] [address] Suhail Brock MD [address] [place] [address] 12/12/2025 8:30 AM EST Clinical Support [facility] Transplant [place] [address] [place] [address] 12/12/2025 10:00 AM EST Office Visit [facility] Transplant [place] [address] [place] [address] Portia Maguire MD [address] [place] [address] documented as of this encounter Visit Diagnoses [...] documented as of this encounter Care Teams Yard Warehouse Worker Relationship Specialty [place] [address] PCP - General 03/14/25 Ruma Hernández APRN [address] [place] [address] Referring Physician Gastroenterology 07/30/23 documented as of this encounter
--- OUTSIDE RECORDS SUMMARY | 2025-10-24 07:24 | XMS_ITS | Encounter Summary ---
Author Organization [facility] Address [address] [place] [address] Care Team Providers Care Money Laundering Investigator Name Role Phone System, Provider Not In [...] release of HIV test results or diagnoses. [id number] Health Encounter Details Date Type Department Care Team (Late st Contact Info) Description 10/03/2025 Chart Note [facility] Kidney Transplant at [address] [address] Ailin Wells Organ: Liver Social History Tobacco [...] Organ: Liver Patient [place] Citizen: Yes Patient [place]: No Patient is Minor Children in the home: no Patient is retired, spouse works FT Income:$11k/mnth combined Primary Ins: [place] Insured:self Secondary Ins: N/A COBRA: No- insurance plan is paid by previous employer as part of nursing home package Eligible for short/fpc disability: N/A Disability due to: n/A Travel/Lodging: no No Medicare: Will be eligible in January of 2026. Provided Ret[employer] info Discussed Medication List and Coverage: Yes Patient will need medications from [facility] post txp:unknown Recipient needs cleared prior to donor being evaluated:no Evaluation for patients/donors need to be done at [facility] Obtained signature on benefits sheets and financial consent: mailed to patient documented in this encounter Plan of Treatment Not on file documented as of this encounter Visit Diagnoses Not on filedocumented in this encounter Additional Health Concerns Assessment Noted Time PHQ-9 Depression Total Score: 8 09/10/20 25 11:09 AM EDT documented as of this encounter Care Teams Money Laundering Investigator Relationship Specialty Start Date End Date System, Provider Not In PCP - General 09/10/25 documented as of this encounter
--- OUTSIDE RECORDS SUMMARY | 2025-10-24 07:24 | XMS_ITS | Encounter Summary ---
Author Organization [facility] Address [address] [place] [address] Care Team Providers Care Rope Making Machine Operator Name Role Phone Ruma Hernández MANAGER CREDIT RISK Unavailable [phone] Chris Medel MD Primary Care Provider [phone] Encounter Details Date Type Department Care Team (Late st Contact Info) Description 10/08/2025 Orders Only [facility] Medicine Specialties [address] [place] [address] Provider, [place] [address] [address] [place] [phone] Social History Tobacco Use Types Packs/Day Years [...] often do you attend [facility] or evangelical services? More than 4 times per year 02/19/2025 Do you belong to any clubs o r organizations such as sabianist groups, unions, [employer] or athletic groups, or school groups? Yes [...] all 06/15/2025 [facility] - Occupational Stress Questionnaire Answer [...] drink first t luisa in the morning (EYE-TAXI SERVICER) to steady your nerves or to get rid of a hangover? 0 06/14/2025 CAGE Questionnaire Score 0 025 Utilities Answer Date Recorded In the past 12 months has th e [employer], gas, oil, or water [employer] threatened to shut off services in your [...] Medical Office Building Urology [address] [facility], [address] [place] [address] Suhail Brock MD [address] [place] [address] 12/12/2025 8:30 AM EST Clinical Support [facility] Transplant Center [address] [place] [address] 12/12/2025 10:00 AM EST Office Visit [facility] Transplant [place] [address] [place] [address] Portia Maguire MD [address] [place] [address] documented as of this encounter Procedures Procedure Name Priority Date/Time Associated Diagnosis Comments COMPLETE METABOLIC PROFILE (CMP) Routine 10/08/2025 10:14 AM EST APTT Routine 10/08/2025 10:14 AM EST PROTHROMBIN TIME(PT) / INR Routine 10/08/2025 10:14 AM EST CBC WITH AUTO DIFFERENTIAL Routine 10/08/2025 10:14 AM EST documented in this encounter Results * COMPLETE METABOLIC PROFILE (CMP) (10/08/2025 10:14 AM EST) [facility] Provider LAB BLOOD ORDERABLES Final R esult * Prothrombin Time/INR (10/08/2025 10:14 AM EST) Blood Venous blood specimen / Unknown Result [facility] Provider LAB BLOOD ORDERABLES Final R esult * APTT (10/08/2025 10:14 AM EST) Blood Venous blood specimen / Unknown Result [facility] Provider LAB BLOOD ORDERABLES Final R esult * CBC and Differential (10/08/2025 10:14 AM EST) Blood Venous blood specimen / Unknown Result [facility] Provider LAB BLOOD ORDERABLES Final R [...] documented as of this encounter Care Teams Rope Making Machine Operator Relationship Specialty [place] [address] PCP - General 03/14/25 Ruma Hernández APRN [address] [place] [address] Referring Physician Gastroenterology 07/30/23 documented as of this encounter
--- OUTSIDE RECORDS SUMMARY | 2025-10-24 07:24 | XMS_ITS | Encounter Summary ---
Author Organization [facility] Address [address] [place] [address] Care Team Providers Care Home Maker Name Role Phone System, Provider Not [...] release of HIV test results or diagnoses. [id number] Health Encounter Details Date Type Department Care Team (Late st Contact Info) Description 10/17/2025 Telephone [facility] Liver Transplant at [address] [address] Joslyn Faulkner, RN Social History Tobacco Use Types Packs/Day [...] living in a detention (including now)? No 10/17/2025 Utilities Answer Date Recorded In the past 12 months has th e [employer], gas, oil, or water company threatened to shut off services in your home? No 10/17/2025 Sex and Gender Information Value Date Recorded Sex Assigned at Not on file Legal Sex Male 3:33 PM EDT Gender Identity Not on file Sexual Orientation Not on file documented as of this encounter Miscellaneous Notes * Telephone Encounter - Joslyn Faulkner RN - 10/17/2025 12:06 AM EST Received notification for potential Liver transplant for David Pop, 1960. Donor ID and Match run verified via email with Dr. Drew. Offer History Type: Primary Local back up: No Open Offer: Yes Waivers: No Type Given: N/A (Anatomical, Biopsy, Crossmatch, Cold time, Pump, Full) Time granted: N/A Who granted: N/A OPO: Scott OPO Contact: Recent illnesses [] Yes [x] No Recent blood transfusions [] Yes [x] No Anticoagulation [] Yes [x] No Recent hospitalizations [] Yes [x] No Last meal Date/Time: NPO-10/17/2025 @ 0200 [x] Yes [] No Pt instructed for admission Location: [facility] Estimated arrival time: 10/17 @ 0900 [x] Yes [] No Significant other/caregiver will accompany the patient and will be available to the medical/surgical team as needed for updates/progress during surgery. [x] Yes [] No If patient is in-house, patient and or family member advised [] Yes [x] No LIVER HCC: Confirmed with the OR that [...] Notifications: Department Phone Comments Time/Name Capacity Management [phone] Notified of patient's pending TXP ORGANS:Liver Time: Spoke to: n/a OR [phone] OR scheduled for: per Dr. Drew Recipient in the OR time 10/17 @ 1200 Acute donor Risk (according to OPTN policy)No (HCV, HBV, HIV, COVID) Notified Donor is DBD Time:29 spoke to Carlos OR photography colorist: Blanca Cooper CREATED ORGAN Time: 26 BLOOD BANK [phone] For Liver and Heart only 33 spoke juve Fernández Nursing Rotor Pilot [phone] For delayed call in 26 spoke with Abby PACU or [facility] [phone] Delayed call in: If recipient OR is 2 hrs or less from admission, call PACU/[facility] (basedon where nursing district supervisor assigns patient) 0730-spoke with Tejas Abdominal Transplant 8CCP [phone] Transfer of care reported for abdominal txp Notified of dialysis type and last session if applicable Time: 36 8CCP photography colorist: Vasquez SICU [phone] Notify about abdominal txp admissions Time:37 SICU photography colorist:Marisela Transplant Surgery Resident/PA QGenda Time: 809 Spoke to: Erikan Transplant Surgery Fellow QGenda Time: 29 Spoke to: Dr Haley Transplant Research Team [phone] Time: 809 Spoke to: [facility] IV Room [phone] Liver Only Contact pharmacy to alert that HBIG will be needed when all the following are present: Donor: *HBsAg negative *HBV DNA/NII negative Recipient: *HBsAg positive *HBV DNA is detectable on most recent check Time: Spoke to: N/A Email notification to Transplant Team(s) and OR photography colorist. [Send the following information below to the transplant team via email:] Received notification for potential Liver transplant for David Pop, 1960. Recipient Info: David Pop 1960 ABO: A CMV: Negative EBV: Positive HepBsAb: Reactive Referring MD: Dr. Portia Maguire. Surgeon: Dr. Drew Candidate ETA: 10/17 @ 0900 OR time and date: 10/17 @ 1200 CRRT needed in OR: no Venoveno bypass: no Donor info: Donor ID: [id number] Match ID: [id number] Anti-HBc: Negative HBV NII: Negative HBsAg: Negative HBsAb: Not Done Anti-HCV: Negative HCV NII: Negative Anti-HIV I/II: Not Done HIV Ag/Ab Combo: Negative HIV NII: Negative Anti-HTLV I/II: Negative HTLV NII: Not Done Anti-CMV: Negative Syphilis: Negative EBV (VCA) (IgG): Positive EBV (VCA) (IgM): Negative EBNA: Positive Toxoplasma (IgG): Negative T. cruzi Ab Screen: Not Done West Nile: Not Done [place] NII: Not Done Strongyloides Ab: Pending COVID: Negative ABO: O positive OPO: Remote Open offer: yes Open offer with waivers (anatomy, pump, biopsy, cold time, crossmatch, full): N/A Backup offer :no Acute HIV/HBV/HCV risk: No Liver being pumped: no LIVERGuard being used: no Patient educated on the risk of transmission [...] as of this encounter Care Teams Home Maker Relationship Specialty Start Date End Date System, Provider Not In PCP - General 09/10/25 documented as of this encounter
--- OUTSIDE RECORDS SUMMARY | 2025-10-24 07:24 | XMS_ITS | Encounter Summary ---
Author Organization Healthcare Address [address] [place] [address] Care Team Providers Care Program Schedule Clerk Name Role Phone Ruma Hernández PHOTOGRAPHIC PRINTER Unavailable [phone] Chris Medel MD Primary Care Provider [phone] Encounter Details Date Type Department Care Team (Late st Contact Info) Description 08/01/2025 Results Follow-Up [facility] [address] [place] [phone] Meaghan Le, RN [facility] L[facility] [id number] [address] [place] [address] Social History Tobacco Use Types Packs/Day Years [...] week 02/19/2025 How often do you attend [facility] or adventist services? More than 4 times per year 02/19/2025 Do you belong to any clubs o r organizations such as yazidi groups, unions, [employer] or athletic groups, or school groups? Yes [...] at all 06/15/2025 [facility] - Occupational Stress Questionnaire Answer Date [...] drink first t luisa in the morning (EYE-BRANCH OFFICER) to steady your nerves or to get rid of a hangover? 0 06/14/2025 CAGE Questionnaire Score 0 025 Utilities Answer Date Recorded In the past 12 months has th e [employer], gas, oil, or water [employer] threatened to shut off services in your [...] E [facility], [address] [place] [address] Suhail Brock MD [address] [facility] [address] [place] [address] 12/12/2025 8:30 AM EST Clinical Support [facility] Transplant [place] [address] [facility] [address] [place] [phone] 12/12/2025 10:00 AM EST Office Visit [facility] [address] [facility] [address] [place] [address] Portia Maguire MD [address] [facility] [address] [place] [phone] documented as of this encounter Visit Diagnoses [...] documented as of this encounter Care Teams Program Schedule Clerk Relationship Specialty [place] [address] PCP - General 03/14/25 Ruma Hernández APRN [address] [place] [address] Referring Physician Gastroenterology 07/30/23 documented as of this encounter
--- OUTSIDE RECORDS SUMMARY | 2025-10-24 07:25 | XMS_ITS | Encounter Summary ---
Author Organization [facility] Address [address] [place] [address] Care Team Providers Care Automotive Teacher Name Role Phone KaronUrban Hosea CAMARA Primary Care Provider [phone] Encounter Details Date Type Department Care Team (Late st Contact Info) Description 10/14/2023 Telephone [facility] GASTRO[facility]OLOGY [address] [facility] [address] [place] [address] Ruma Hernández, GLASSWARE FINISHER [address] [facility] [address] [place], [place] [phone] Social History Tobacco Use Types Packs/Day Years [...] on filedocumented in this encounter Care Teams Automotive Teacher Relationship Specialty Start Date End Date Urban Brantley DO [address] [place] [address] PCP - General Internal Medicine 03/22/23 documented as of this encounter
--- OUTSIDE RECORDS SUMMARY | 2025-10-24 07:25 | XMS_ITS | Encounter Summary ---
Author Organization [facility] Address [address] [place] [address] Care Team Providers Care Road Builder Name Role Phone System, Provider Not In [...] release of HIV test results or diagnoses. [id number] Health Encounter Details Date Type Department Care Team (Late st Contact Info) Description 09/24/2025 Orders Only [facility] Liver Transplant at [address] [address] Chapito Alcantar, SILVIO Alcoholic cirrhosis of liver [...] - 15.1 seconds 09/24/2025 3:06 PM EST [facility] INR 1.9(H) 0.9 - 1.1 09/24/2025 3:06 PM EST [facility] Comment: RECOMMENDED THERAPEUTIC RANGES USING INR : Stable oral anticoagulant therapy: 2.0 - 3.0 Mechanical prosthetic heart valve: 2.5 - 3.5 Recurrent acute myocardial infarction: 2.5 - 3.5 Plasma 09/24/2025 2:11 PM EST 09/24/2025 2:43 PM EST Nigel Reaves MD LAB BLOOD ORDERABLES Final Resul t [facility] [address] * (ABNORMAL) Renal Function Panel w/EGFR (09/24/2025 2:11 PM EST) Pathologist [facility] Sodium 137 133 - 146 mmol/L 09/24/2025 6:36 PM EST [facility] Potassium 3.9 3.5 - 5.3 mmol/L 09/24/2025 6:36 PM EST [facility] Chloride 104 98 - 110 mmol/L 09/24/2025 6:36 PM EST [facility] CO2 29 21 - 33 mmol/L 09/24/2025 6:36 PM EST [facility] Comment:High lactate dehydro genase concentrations in patient samples may cause falsely increased bicarbonate results. If markedly elevated LDH is observed or suspected, please assess results in conjunction with patient`s clinical presentation. In cases of discrepant results, consider evaluating CO2 in with a blood gas order. Anion Gap 4 3 - 16 mmol/L 09/24/2025 6:36 PM EST [facility] BUN 13 7 - 25 mg/dL 09/24/2025 6:36 PM EST [facility] Creatinine 0.84 0.60 - 1.30 mg/dL 09/24/2025 6:36 PM EST [facility] Glucose 98 70 - 100 mg/dL 09/24/2025 6:36 PM EST [facility] Calcium 8.1(L) 8.6 - 10.3 mg/dL 09/24/2025 6:36 PM EST [facility] Phosphorus 3.5 2.1 - 4.7 mg/dL 09/24/2025 6:36 PM EST [facility] Albumin 2.0(L) 3.5 - 5.7 g/dL 09/24/2025 6:36 PM EST [facility] Osmolality, Calculated 284 278 - 305 mOsm/kg 09/24/2025 6:36 PM EST [facility] EGFR >90 09/24/2025 6:36 PM EST [facility] Comment: As of 2022, the estimated [...] Resul t [facility] [address] [place] [address], [facility] * (ABNORMAL) Hepatic Function Panel (09/24/2025 2:11 PM EST) Total Bilirubin 3.4(H) 0.0 - 1.5 mg/dL 09/24/2025 6:36 PM EST [facility] Bilirubin, Direct 1.07(H) 0.00 - 0.40 mg/dL 09/24/2025 6:36 PM EST [facility] AST 37 13 - 39 U/L 09/24/2025 6:36 PM EST [facility] ALT 22 7 - 52 U/L 09/24/2025 6:36 PM EST [facility] Alkaline Phosphatase 142(H) 36 - 125 U/L 09/24/2025 6:36 PM EST [facility] Total Protein 5.8(L) 6.4 - 8.9 g/dL 09/24/2025 6:36 PM EST [facility] Albumin 2.0(L) 3.5 - 5.7 g/dL 09/24/2025 6:36 PM EST [facility] Bilirubin, Indirect 2.33(H) 0.00 - 1.10 mg/dL 09/24/2025 6:36 PM EST [facility] Plasma 09/24/2025 2:11 PM EST 09/24/2025 5:52 PM EST us Nigel Reaves MD LAB BLOOD ORDERABLES Final Resul t [facility] [address] [place] [address], [facility] documented in this encounter Visit Diagnoses Diagnosis Alcoholic cirrhosis of liver with ascites (CMS-HCC)- Primary Pre-transplant evaluation for chronic liver disease documented in this encounter Additional Health Concerns Assessment Noted Time PHQ-9 Depression Total Score: 8 09/10/20 25 11:09 AM EDT documented as of this encounter Care Teams Road Builder Relationship Specialty Start Date End Date System, Provider Not In PCP - General 09/10/25 documented as of this encounter
--- OUTSIDE RECORDS SUMMARY | 2025-10-24 07:25 | XMS_ITS | Encounter Summary ---
Author Organization [facility] Address [address] [place] [address] Care Team Providers Care Hydramatic Mechanic Name Role Phone System, Provider Not [...] release of HIV test results or diagnoses. [id number] Health Encounter Details Date Type Department Care Team (Late st Contact Info) Description 09/24/2025 Chart Note [facility] Kidney Transplant at [address] [phone] Ailin Wells Called local office again to [...] documented as of this encounter Care Teams Hydramatic Mechanic Relationship Specialty Start Date End Date System, Provider Not In PCP - General 09/10/25 documented as of this encounter
--- OUTSIDE RECORDS SUMMARY | 2025-10-24 07:25 | XMS_ITS | Encounter Summary ---
Author Organization [facility] Address [address] [place] [address] Care Team Providers Care Enrollment Eligibility Representative Name Role Phone System, Provider Not [...] release of HIV test results or diagnoses. [id number] Health Encounter Details Date Type Department Care Team (Late st Contact Info) Description 09/20/2025 Telephone [facility] Liver Transplant at [address] [address] Cori Dover MA Social History Tobacco Use [...] Dover MA - 09/20/2025 10:29 AM EST [facility] called to get patient scheduled for a follow up visit with Dr. Reaves. documented in this encounter Plan of Treatment Not on file documented as of this encounter Visit Diagnoses Not on filedocumented in this encounter Additional Health Concerns Assessment Noted Time PHQ-9 Depression Total Score: 8 09/10/20 25 11:09 AM EDT documented as of this encounter Care Teams Enrollment Eligibility Representative Relationship Specialty Start Date End Date System, Provider Not In PCP - General 09/10/25 documented as of this encounter
--- OUTSIDE RECORDS SUMMARY | 2025-10-24 07:25 | XMS_ITS | Encounter Summary ---
Author Organization Healthcare Address [address] [place] [address] Care Team Providers Care Oxygen System Tester Name Role Phone Ruma Hernández SERVICE PLUMBER Unavailable [phone] Chris Medel MD Primary Care Provider [phone] Encounter Details Date Type Department Care Team (Late st Contact Info) Description 08/20/2025 Results Follow-Up [facility] Transplant Center [address] [place] [phone] Meaghan Le, RN [facility] [id number] [address] [place] [address] Social History Tobacco Use Types Packs/Day Years [...] do you attend [facility] or quaker services? More than 4 times per year 02/19/2025 Do you belong to any clubs o r organizations such as zoroastrian groups, unions, [employer] or athletic groups, or school groups? Yes [...] How often do you attend chur or quaker services? More than 4 times [...] 06/15/2025 [facility] Occupational Stress Questionnaire Answer [...] drink first t luisa in the morning (EYE-CARPENTER STREETCAR) to steady your nerves or to get rid of a hangover? 0 06/14/2025 CAGE Questionnaire Score 0 025 Utilities Answer Date Recorded In the past 12 months has th e [employer], gas, oil, or water [employer] threatened to shut off services in your [...] -2 Score 0 09/12/2025 8:14 AM EDT Auide Atkinson documented as of this encounter Plan of Treatment Upcoming Encounters Date Type Department Care Team (Late st Contact Info) Description 11/27/2025 3:45 PM EST Office Visit Medical Office Building Urology [address] [facility], [address] [place] [address] Suhail Brock MD [address] [place] [address] 12/12/2025 8:30 AM EST Clinical Support [facility] Transplant Center [address] [place] [address] 12/12/2025 10:00 AM EST Office Visit [facility] Transplant Center [address] [place] [address] Portia Maguire MD [address] [place] [phone] documented as of this encounter Visit Diagnoses [...] documented as of this encounter Care Teams Oxygen System Tester Relationship Specialty [place] [address] PCP - General 03/14/25 Ruma Hernández APRN [address] [facility] [address] [place] [address] Referring Physician Gastroenterology 07/30/23 documented as of this encounter
--- OUTSIDE RECORDS SUMMARY | 2025-10-24 07:25 | XMS_ITS | Encounter Summary ---
[facility] Address [address] [place] [address] Care Team Providers Care Roller Man Name Role Phone KaronUrban Hosea CAMARA Primary Care Provider [phone] Encounter Details Date Type Department Care Team (Late st Contact Info) Description 10/14/2023 Telephone [facility] GASTRO[facility]OLOGY [address] [facility] [address] [place] [address] Ruma Hernández, THEATER MANAGER [address] [facility] [address] [place], [place] [phone] Social History Tobacco Use Types Packs/Day Years [...] on filedocumented in this encounter Care Teams Roller Man Relationship Specialty Start Date End Date Urban Brantley DO [address] [place] [address] PCP - General Internal Medicine 03/22/23 documented as of this encounter
--- OUTSIDE RECORDS SUMMARY | 2025-10-24 07:25 | XMS_ITS | Encounter Summary ---
Author Organization [facility] Address [address] [place] [address] Care Team Providers Care Circular Sawyer Stone Name Role Phone System, Provider Not In [...] release of HIV test results or diagnoses. [id number] Health Encounter Details Date Type Department Care Team (Late st Contact Info) Description 09/25/2025 Chart Note [facility] Kidney Transplant at [address] [address] Ailin Wells Authorization for listing Social History [...] for listing Organ: [employer]: [employer] [facility] Wool Hat Finisher: Serena Carter ext [phone] Authorization # [id number] Dates of Service: 09/24/2025-09/23/2026 Additional Information: Scanned to PFS documented in this encounter Plan of Treatment Not on file documented as of this encounter Visit Diagnoses Not on filedocumented in this encounter Additional Health Concerns Assessment Noted Time PHQ-9 Depression Total Score: 8 09/10/20 11:09 AM EDT documented as of this encounter Care Teams Circular Sawyer Stone Relationship Specialty Start Date End Date System, Provider Not In PCP - General 09/10/25 documented as of this encounter
--- OUTSIDE RECORDS SUMMARY | 2025-10-24 07:25 | XMS_ITS | Encounter Summary ---
Author Organization [facility] Address [address] [place] [address] Care Team Providers Care Delivery Coordinator Name Role Phone System, Provider Not [...] release of HIV test results or diagnoses. [id number] Health Encounter Details Date Type Department Care Team (Late st Contact Info) Description 09/21/2025 Refill [facility] at [facility] [address] [place] [phone] Arturo Gibson, RN Social History Tobacco Use [...] as of this encounter Care Teams Delivery Coordinator Relationship Specialty Start Date End Date System, Provider Not In PCP - General 09/10/25 documented as of this encounter
--- OUTSIDE RECORDS SUMMARY | 2025-10-24 07:25 | XMS_ITS | Encounter Summary ---
Author Organization [facility] Address [address] [place] [address] Care Team Providers Care Canvas Shop Laborer Name Role Phone System, Provider Not In [...] release of HIV test results or diagnoses. [id number] Health Encounter Details Date Type Department Care Team (Late st Contact Info) Description 09/20/2025 Chart Note [facility] Transplant at [address] [address] Chapito Alcantar RN Spoke with patient's spouse [...] documented as of this encounter Care Teams Canvas Shop Laborer Relationship Specialty Start Date End Date System, Provider Not In PCP - General 09/10/25 documented as of this encounter
--- OUTSIDE RECORDS SUMMARY | 2025-10-24 07:25 | XMS_ITS | Clinical Summary ---
Author Organization [facility] Address [address] [place] [address] Care Team Providers Care Director Of Mobile Marketing Name Role Phone Ruma Hernández CYLINDER MACHINE OPERATOR Unavailable [phone] Chris Medel MD Primary Care Provider [phone] Allergies Active Allergy Reactions Criticality Noted Date Comments Lisinopril Cough Low 09/15/2021 Medications carvedilol (Coreg) 3.125 MG tabletIndicatio ns:Cirrhosis of liver with ascites, unspecified hepatic cirrhosis type Take 1 tablet (3.125 mg) by mouth 2 (two) times a day with meals. 60 tablet 11 09/13/20 24 Active ergocalciferol (Vitamin D-2) 1.25 MG (77247 UT) capsule Take 1 capsule by mouth [...] Encounters Date Type Department Care Team Description 10/16/2025 Results Follow-Up [facility] [address] [place] [address] Meaghan Le RN 10/15/2025 Telephone [facility] [address], [address] [place] [address] Moustapha Katz MD HCN - Patient Message 10/09/2025 Results Follow-Up [facility] [address] [place] [address] Meaghan Le RN 10/08/2025 Orders Only [facility] Specialties [address] [place] [address] Provider, Historical 10/02/2025 Refill [facility] [address] [place] [address] Portia Maguire MD Pre-liver transplant, listed (Primary Dx); End-stage liver disease (CMS/HCC) 09/12/2025 10:00 AM EDT Office Visit [facility] [place] [address] Portia Maguire MD Pre-liver transplant, listed (Primary Dx); Cirrhosis of liver with ascites, unspecified hepatic cirrhosis type; Other ascites; Alcoholic cirrhosis, unspecified whether ascites present; Hemochromatosis associated with compound heterozygous mutation in HFE gene; Alcohol use disorder, moderate, in sustained remission; Hepatic encephalopathy (CMS/HCC) 09/12/2025 8:47 AM EDT - 09/12/2025 11:59 PM EDT Hospital Encounter [facility] [address] [place] [address] Pre-liver transplant, listed Discharge Disposition: Home or Self Care 09/12/2025 Results Follow-Up [place] [id number] [place] [address] Meaghan Le RN 09/12/2025 Travel 09/11/2025 Travel 09/05/2025 Orders Only [facility] [place] [address] [place] [address] Meaghan Le RN Pre-liver transplant, listed (Primary Dx) 08/31/2025 Results Follow-Up [place] [id number] [place] [address] Meaghan Le RN 08/29/2025 Orders Only [facility] [address] [place] [address] Provider, Historical 08/20/2025 Results Follow-Up [facility] [address] [place] [id number] Meaghan Le RN 08/01/2025 Results Follow-Up [facility] [address] [place] [id number] Meaghan Le, SILVIO from Last 3 Months Immunizations Immunization [...] 06/15/2025 How often do you attend [facility] or latter day services? More than 4 [...] and heating? 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 0 06/14/2025 CAGE Questionnaire Score 0 025 Utilities Answer Date Recorded In the past 12 months has th e electric, gas, oil, or water [email or web address] threatened to shut off services in your [...] [address], [address] [place] [address] Suhail Brock MD [address] [place] [address] 12/12/2025 8:30 AM EST Clinical Support [facility] [address] [place] [address] 12/12/2025 10:00 AM EST Office Visit [facility] [address] [place] [address] Portia Maguire MD [address] [place] [address] Health Maintenance Due Date Last Done Comments [facility]-/Child/Adol SDOH Screenings 1960 QGI-[id number]-26 Vaccine (#1) 1960 [facility]-Hepatitis A Vaccines (1 of 2 - Risk 2-dose series) 02/02/1980 [facility]-Pneumococcal Vaccine: 50+ Years (1 of 2 - PCV) 02/02/1980 [facility]-Zoster Vaccines (1 of 2) 02/02/1980 CT Colonography 2006 Colonoscopy 2006 FIT-DNA 2006 FIT 2006 FOBT 2006 Sigmoidoscopy 2006 [facility]-Colorectal Cancer Screening 2006 [facility]-RSV Vaccine: 60+ Years or (1 - Risk 50-74 years 1-dose series) 2011 [facility]-Influenza Vaccine (#1) 2025 [facility]- SDOH Screenings 12/16/2025 [facility]-Adult SDOH Screenings 12/16/2025 06/15/2025 [facility]-Bone Density Scan 06/08/2026 06/08/2025, 024 [facility]-Depression Screening 09/12/2026 09/12/2025, 09/16 [facility]-DTaP,Tdap,and Td Vaccines (2 - Td or Tdap) 09/10/2035 09/10/2025 [facility]-HIV Screening Completed 06/14/2025, 04/11/2024 [facility]-Hepatitis C Screening Completed 2024, 06/14/2025, 08/03/2023 [facility]-Obesity Intervention Completed 025, 07/11/2025, 06/14/2025, Additional history exists HPV Vaccines (No Doses Required) Completed [facility]-HIB Vaccines Aged Out No longer e [...] PROFILE (CMP) Routine 10/08/2025 10:14 AM EST PROTHROMBIN TIME(PT) / INR Routine 10/08/2025 10:14 AM EST APTT Routine 10/08/2025 10:14 AM EST CBC WITH AUTO DIFFERENTIAL Routine 10/08/2025 10:14 AM EST COMPREHENSIVE METABOLIC PANEL, PLASMA Routine 10/08/2025 CBC W/O DIFFERENTIAL Routine 10/08/2025 PROTHROMBIN TIME(PT) / INR Routine 10/08/2025 COMPREHENSIVE METABOLIC PANEL, PLASMA Routine 10/08/2025 CBC W/O DIFFERENTIAL Routine 10/08/2025 PROTHROMBIN TIME(PT) / INR Routine 10/08/2025 MR ABDOMEN W AND WO IV CONTRAST [...] 08/01/2025 PROTHROMBIN TIME(PT) / INR Routine 08/01/2025 HEPATITIS C ANTIBODY W/REFLEX TO HCV QUANT PCR STAT 06/14/2025 6:31 PM EDT HIV 1/2 ANTIBODY/ANTIGEN SCREEN WITH REFLEX TO HIV I/II DIFFERENTIATION STAT 06/14/2025 6:31 PM EDT DEXA BONE DENSITY Routine 06/08/2025 8:3 5 AM EDT Other osteoporosis without current pathological fracture from Last 3 Months or Most Recently Relevant to Health Maintenance Results * COMPLETE METABOLIC PROFILE (CMP) (10/08/2025 10:14 AM EST) Only the most recent of2 resultswithin the time period is included. Result [facility] Provider LAB BLOOD ORDERABLES Final R esult * APTT (10/08/2025 10:14 AM EST) Blood Venous blood specimen / Unknown Result [facility] Provider LAB BLOOD ORDERABLES Final R esult * Prothrombin Time/INR (10/08/2025 10:14 AM EST) Only the most recent of8 resultswithin the time period is included. Blood Venous blood specimen / Unknown Result [facility] Provider LAB BLOOD ORDERABLES Final R esult * CBC and Differential (10/08/2025 10:14 AM EST) Only the most recent of2 resultswithin the time period is included. Blood Venous blood specimen / Unknown Result [facility] Provider LAB BLOOD ORDERABLES Final R esult * CBC W/O Differential (10/08/2025) Only the most recent of6 resultswithin the time period is included. External WBC 3.3 External Red Blood Cell (RBC) 3.23 External Hemoglobin (Hgb) 10.80 External Hematocrit (Hct) 32.6 External Platelet Count (Plt) 71 Blood Venous blood specimen / Unknown 10/08/2025 Result [facility] Provider LAB BLOOD ORDERABLES Final R esult * Comprehensive Metabolic Panel, Plasma (10/08/2025) Only the most recent of6 resultswithin the time period is included. External Glucose 84 External BUN 14 External Creatinine Blood 0.7 mg/dL External Sodium (Na) 135 mEq/L External Potassium (K) 3.9 External Chloride (Cl) 109 External Carbon Dioxide (CO2) 25 External Anion Gap (AG) 4.9 External Calcium (Ca) 8.3 External Total Protein 6.6 External Albumin 2.3 g/dL External AST (SGOT) 45 External ALT (SGPT) 30 External Alkaline Phosphatase 168 External Bilirubin Total 4.2 mg/dL External Estimated GFR 114 External EGFR (If AFR/AM) 137 Blood Venous blood specimen / Unknown 10/08/2025 us Historical Provider LAB BLOOD ORDERABLES Final R esult * MR Abdomen w and wo IV [...] using the following sequences: coronal single shot [id number] fast spin echo, axial T2 weighted sequences [...] Urine Drug Testing (09/12/2025 7:55 AM EDT) [facility] [place] Alprazolam <20 <20 ng/mL 09/14 7:16 AM EDT [facility] [place] Midazolam <20 <20 ng/mL 2024 7:16 AM EDT [facility] [place] Triazolam <20 <20 ng/mL 2024 7:16 AM EDT [facility] Alprazolam <10 <10 ng/mL 09/14/2025 7:16 AM EDT [facility] Aminoclonazepam <20 <20 ng/mL 7:16 AM EDT [facility] Amphetamine <50 <50 ng/mL 09/14/2025 7:16 AM EDT [facility] Benzoylecgonine <50 <50 ng/mL 7:16 AM EDT [facility] Buprenorphine <10 <10 ng/mL 09/14/2025 7:16 AM EDT [facility] Buprenorphine Glucuronide <50 <50 ng/mL 09/14/2025 7:16 AM EDT [facility] Butalbital <50 <50 ng/mL 09/14/2025 7:16 AM EDT [facility] 9 Carboxy THC <10 <10 ng/mL 09/14/2025 7:16 AM EDT [facility] 9 Carboxy THC Glucuronide <25 <25 ng/mL 09/14/2025 7:16 AM EDT [facility] Clonazepam <10 <10 ng/mL 09/14/2025 7:16 AM EDT [facility] Codeine <50 <50 ng/mL 09/14/2025 7:16 AM EDT [facility] Codeine Glucuronide <50 <50 ng/mL 09/14 7:16 AM EDT [facility] Cyclobenzaprine <50 <50 ng/mL 7:16 AM EDT [facility] Desmethyl Tramadol <50 <50 ng/mL 2024 7:16 AM EDT [facility] Diazepam <10 <10 ng/mL 09/14/2025 7:16 AM EDT [facility] EDDP - Methadone Metabolite <50 <50 ng/mL 09/14/2025 7:16 AM EDT [facility] Fentanyl <1 <1 ng/mL 09/14/2025 7:16 AM EDT [facility] Hydrocodone <50 <50 ng/mL 09/14/2025 7:16 AM EDT [facility] Hydromorphone <50 <50 ng/mL 09/14/2025 7:16 AM EDT [facility] Hydromorphone Glucuronide <50 <50 ng/mL 09/14/2025 7:16 AM EDT [facility] Lorazepam <20 <20 ng/mL 09/14/2025 7:16 AM EDT [facility] Lorazepam Glucuronide <50 <50 ng/mL 09/14/2025 7:16 AM EDT [facility] MDA <50 <50 ng/mL 09/14/2025 7:16 AM EDT [facility] MDMA <50 <50 ng/mL 09/14/2025 7:16 AM EDT [facility] Meperidine <50 <50 ng/mL 09/14/2025 7:16 AM EDT [facility] Methadone <50 <50 ng/mL 09/14/2025 7:16 AM EDT [facility] Methamphetamine <50 <50 ng/mL 7:16 AM EDT [facility] Methylphenidate <50 <50 ng/mL 7:16 AM EDT [facility] 6 Monoacetyl morphine <10 <10 ng/mL 09/14/2025 7:16 AM EDT [facility] Morphine <50 <50 ng/mL 09/14/2025 7:16 AM EDT [facility] Morphine Glucuronide <50 <50 ng/mL 08/17 7:16 AM EDT [facility] Naloxone <50 <50 ng/mL 09/14/2025 7:16 AM EDT [facility] Naloxone Glucuronide <50 <50 ng/mL 08/17 7:16 AM EDT [facility] Norbuprenorphine <10 <10 ng/mL 09/14/20 7:16 AM EDT [facility] Norbuprenorphine Glucuronide <50 <50 ng/mL 09/14/2025 7:16 AM EDT [facility] Nordiazepam <20 <20 ng/mL 09/14/2025 7:16 AM EDT [facility] Norfentanyl <2 <2 ng/mL 09/14/2025 7:16 AM EDT [facility] Normeperidine <50 <50 ng/mL 09/14/2025 7:16 AM EDT [facility] PCP Quant, Ur <50 <50 ng/mL 09/14/2025 7:16 AM EDT [facility] Phenobarbital <50 <50 ng/mL 09/14/2025 7:16 AM EDT [facility] Oxazepam <20 <20 ng/mL 09/14/2025 7:16 AM EDT [facility] Oxazepam Glucuronide <50 <50 ng/mL 08/17 7:16 AM EDT [facility] Oxycodone <50 <50 ng/mL 09/14/2025 7:16 AM EDT [facility] Oxymorphone <50 <50 ng/mL 09/14/2025 7:16 AM EDT [facility] Oxymorphone Glucuronide <50 <50 ng/mL 09/14/2025 7:16 AM EDT [facility] Secobarbital <50 <50 ng/mL 09/14/2025 7:16 AM EDT [facility] Tramadol <50 <50 ng/mL 09/14/2025 7:16 AM EDT [facility] Temazepam <20 <20 ng/mL 09/14/2025 7:16 AM EDT [facility] Temazepam Glucuronide <50 <50 ng/mL 09/14/2025 7:16 AM EDT [facility] Urine Urine specimen obtained by clean catch procedure / Unknown Non-blood Collection / Unknown 09/12/2025 7:55 AM EDT 09/12/2025 8:51 AM EDT Narrative [facility] - 09/14/2025 7:16 AM EDT This [...] laboratory. Test performed by LC-MS/MS at the [facility]. This test was developed and its performance characteristics determined by [facility]. It has not been cleared or approved by the FDA. The laboratory is regulated under CLIA as qualified to perform high-complexity testing. This test is used for clinical purposes. Portia Maguire MD LAB URINE ORDERABLES Nadia l Result Performing Organization Address [facility] Co de Phone Number [facility] [address] [place] [address] * Alpha Fetoprotein, Serum (09/12/2025 7:55 AM EDT) Alpha Fetoprotein, Serum <2.3 <10.0 ng/mL 09/12/2025 10:[address] [facility] Blood Venous blood specimen / Unknown Venipuncture / Unknown 09/12/2025 7:55 AM EDT 09/12/2025 8:46 AM EDT Narrative [facility] - 09/12/2025 10:18 AM EDT Performed by Stacey electrochemiluminescent immunoassay which is traceable to the 1st AFP IRP WHO Reference standard 72/255. Results obtained with different test methods or kits cannot be used interchangeably. Portia Maguire MD LAB BLOOD ORDERABLES Nadia l Result Performing Organization Address [place]/[facility] Co de Phone Number [facility] [address] [place] [address] * Nicotine Cotinine Metabolite (09/12/2025 7:55 AM EDT) NICOTINE <5 <5 ng/mL 09/14/2025 10:24 AM EDT [facility] Cotinine <5 <5 ng/mL 09/14/2025 10:24 AM EDT [facility] Blood Venous blood specimen / Unknown Venipuncture / Unknown 09/12/2025 7:55 AM EDT 09/12/2025 8:46 AM EDT Narrative [facility] - 09/14/2025 10:24 AM EDT Testing performed by LC-MS/MS at the [facility] Special Chemistry/Toxicology Laboratory. This test was developed and its performance characteristics determined by [facility]. This assay has not been cleared by the FDA. The laboratory is regulated under CLIA as qualified to perform high-complexity testing. This test is used for clinical purposes. Portia Maguire MD LAB BLOOD ORDERABLES Nadia crockett Result [facility] [address] [place] [address] * Alcohol Urine (09/12/2025 7:55 AM EDT) Alcohol Urine Negative Negative 09/12/2025 1:41 PM EDT [facility] Urine Urine specimen obtained by clean catch procedure / Unknown Non-blood Collection / Unknown 09/12/2025 7:55 AM EDT 09/12/2025 8:51 AM EDT Narrative [facility] - 09/12/2025 1:41 PM EDT The correlation between urine and serum ethanol concentration is highly variable. Test performed by Gas Chromatography at the [facility]. This test was developed and its performance characteristics determined by [facility]. It has not been cleared or approved by the FDA.The laboratory is regulated under CLIA as qualified to perform high-complexity testing. This test is used for clinical purposes only. The correlation between urine and serum ethanol concentration is highly variable. Test performed by Gas Chromatography at the [facility]. This test was developed and its performance characteristics determined by [facility]. It has not been cleared or approved by the FDA.The laboratory is regulated under CLIA as qualified to perform high-complexity testing. This test is used for clinical purposes only. Portia Maguire MD LAB URINE ORDERABLES Nadia crockett Result [facility] [address] [place] [address] * Comprehensive Urine Drug Screening, Qualitative Assay, >= 27 Drug Classes (09/12/2025 7:55 AM EDT) Acetaminophen Negative Negative 09/16/2025 3:50 AM EST [facility] Alprazolam Negative Negative 09/16/2025 3:50 AM EST [facility] Amantadine Negative Negative 09/16/2025 3:50 AM EST [facility] Amitriptyline Negative Negative 09/16/2025 3:50 AM EST [facility] Amphetamine Negative Negative 09/16/2025 3:50 AM EST [facility] Atenolol Negative Negative 09/16/2025 3:50 AM EST [facility] Benzoylecgonine Negative Negative 3:50 AM EST [facility] Bisoprolol Negative Negative 09/16/2025 3:50 AM EST [facility] Bupropion Negative Negative 09/16/2025 3:50 AM EST [facility] Butalbital Negative Negative 09/16/2025 3:50 AM EST [facility] Carbamazepine Negative Negative 09/16/2025 3:50 AM EST [facility] Carisoprodol Negative Negative 09/16/2025 3:50 AM EST [facility] Chlorpheniramine Negative Negative 09/16/20 3:50 AM EST [facility] Citalopram Negative Negative 09/16/2025 3:50 AM EST [facility] Clindamycin Negative Negative 09/16/2025 3:50 AM EST [facility] Clonidine Negative Negative 09/16/2025 3:50 AM EST [facility] Clopidogrel / Ticlopidine Negative Negative 09/16/2025 3:50 AM EST [facility] Cocaethylene Negative Negative 09/16/2025 3:50 AM EST [facility] Cocaine Negative Negative 09/16/2025 3:50 AM EST [facility] Codeine Negative Negative 09/16/2025 3:50 AM EST [facility] Cyclobenzaprine Negative Negative 3:50 AM EST [facility] Desvenlafaxine Negative Negative 09/16/2025 3:50 AM EST [facility] Dextromethorphan Negative Negative 09/16/20 3:50 AM EST [facility] Diazepam Negative Negative 09/16/2025 3:50 AM EST [facility] Diltiazem Negative Negative 09/16/2025 3:50 AM EST [facility] Diphenhydramine Negative Negative 3:50 AM EST [facility] Doxepine Negative Negative 09/16/2025 3:50 AM EST [facility] Doxylamine Negative Negative 09/16/2025 3:50 AM EST [facility] EDDP-Methadone metabolite Negative Negative 09/16/2025 3:50 AM EST [facility] Fentanyl Negative Negative 09/16/2025 3:50 AM EST [facility] Fluconazole Negative Negative 09/16/2025 3:50 AM EST [facility] Fluoxetine Negative Negative 09/16/2025 3:50 AM EST [facility] Guaifenesin Negative Negative 09/16/2025 3:50 AM EST [facility] Haloperidol Negative Negative 09/16/2025 3:50 AM EST [facility] Heroin/6-MARY Negative Negative 09/16/2025 3:50 AM EST [facility] Hydrocodone Negative Negative 09/16/2025 3:50 AM EST [facility] Hydroxyzine / Cetirizine metabolite Negative Negative 09/16/2025 3:50 AM EST [facility] Ibuprofen Negative Negative 09/16/2025 3:50 AM EST [facility] Imipramine Negative Negative 09/16/2025 3:50 AM EST [facility] Ketamine Negative Negative 09/16/2025 3:50 AM EST [facility] Labetolol Negative Negative 09/16/2025 3:50 AM EST [facility] Lamotrigine Negative Negative 09/16/2025 3:50 AM EST [facility] Levetiracetam Negative Negative 09/16/2025 3:50 AM EST [facility] Lidocaine Negative Negative 09/16/2025 3:50 AM EST [facility] MDA Negative Negative 09/16/2025 3:50 AM EST [facility] MDMA Negative Negative 09/16/2025 3:50 AM EST [facility] Memantine Negative Negative 09/16/2025 3:50 AM EST [facility] Meperidine Negative Negative 09/16/2025 3:50 AM EST [facility] Meprobamate Negative Negative 09/16/2025 3:50 AM EST [facility] Metaxalone Negative Negative 09/16/2025 3:50 AM EST [facility] Methamphetamine Negative Negative 3:50 AM EST [facility] Methocarbamol Negative Negative 09/16/2025 3:50 AM EST [facility] Methylecgonine Negative Negative 09/16/2025 3:50 AM EST [facility] Metoclopramide Negative Negative 09/16/2025 3:50 AM EST [facility] Metoprolol Negative Negative 09/16/2025 3:50 AM EST [facility] Metronidazole Negative Negative 09/16/2025 3:50 AM EST [facility] Midazolam Negative Negative 09/16/2025 3:50 AM EST [facility] Midazolam Metabolite Negative Negative 12/2024 3:50 AM EST [facility] Mirtazapine Negative Negative 09/16/2025 3:50 AM EST [facility] Misc Test Result Negative Negative 09/16/20 3:50 AM EST [facility] Naproxen Negative Negative 09/16/2025 3:50 AM EST [facility] Nefazodone Negative Negative 09/16/2025 3:50 AM EST [facility] Norfentanyl Negative Negative 09/16/2025 3:50 AM EST [facility] Nortriptyline Negative Negative 09/16/2025 3:50 AM EST [facility] Ordanstron Negative Negative 09/16/2025 3:50 AM EST [facility] Oxcarbazepine Negative Negative 09/16/2025 3:50 AM EST [facility] Oxycodone Negative Negative 09/16/2025 3:50 AM EST [facility] Paroxethine Negative Negative 09/16/2025 3:50 AM EST [facility] Phenobarbital Negative Negative 09/16/2025 3:50 AM EST [facility] Phentermine Negative Negative 09/16/2025 3:50 AM EST [facility] Phenytoin Negative Negative 09/16/2025 3:50 AM EST [facility] Primidone Negative Negative 09/16/2025 3:50 AM EST [facility] Promethazine Negative Negative 09/16/2025 3:50 AM EST [facility] Propofol Negative Negative 09/16/2025 3:50 AM EST [facility] Propranolol Negative Negative 09/16/2025 3:50 AM EST [facility] Quetiapine Negative Negative 09/16/2025 3:50 AM EST [facility] Quinine Negative Negative 09/16/2025 3:50 AM EST [facility] Rantidine Negative Negative 09/16/2025 3:50 AM EST [facility] Sertraline Negative Negative 09/16/2025 3:50 AM EST [facility] Spironolactone Negative Negative 09/16/2025 3:50 AM EST [facility] Tizanidine Negative Negative 09/16/2025 3:50 AM EST [facility] Topiramate Negative Negative 09/16/2025 3:50 AM EST [facility] Tramadol Negative Negative 09/16/2025 3:50 AM EST [facility] Trazadone/ Trazadone metabolite Negative Negative 09/16/2025 3:50 AM EST [facility] Trimethoprim Negative Negative 09/16/2025 3:50 AM EST [facility] Valproic Acid Negative Negative 09/16/2025 3:50 AM EST [facility] Venlafaxine Negative Negative 09/16/2025 3:50 AM EST [facility] Verapamil Negative Negative 09/16/2025 3:50 AM EST [facility] Zolpidem Negative Negative 09/16/2025 3:50 AM EST [facility] Xylazine Negative Negative 09/16/2025 3:50 AM EST [facility] Urine Urine specimen obtained by clean catch procedure / Unknown Non-blood Collection / Unknown 09/12/2025 7:55 AM EDT 09/12/2025 8:51 AM EDT Portia Maguire MD LAB URINE ORDERABLES Nadia l Result Performing Organization Address City/[facility]/ZIP Co de Phone Number [facility] [address] [place] [address] * HIV 1 & 2 Antibody/Antigen Screen (06/14/2025 6:31 PM EDT) HIV 1 & 2 Antibody/Antigen Screen Non Reactive Non Reactive 06/14/2025 7:45 PM EDT [facility] Comment:Screening for HIV 1 & 2 antibodies, and P24 antigen is NONREACTIVE. No confirmatory testing is required. Blood Venous blood specimen / Unknown Venipuncture / Unknown 06/14/2025 6:31 PM EDT 06/14/2025 7:05 PM EDT us Luis Angel Bee MD LAB BLOOD ORDERABLES Nadia l Result Performing Organization Address [facility] [place] [address] * Hepatitis C Antibody (06/14/2025 6:31 PM EDT) Hepatitis C Antibody Negative Negative 06/14/2025 7:45 PM EDT [facility] Blood Venous blood specimen / Unknown Venipuncture / Unknown 06/14/2025 6:31 PM EDT 06/14/2025 7:05 PM EDT us Luis Angel Bee MD LAB BLOOD ORDERABLES Nadia l Result [facility] [address] [place] [address] * Dexa Bone Density (06/08/2025 8:35 AM EDT) Anatomical Region Laterality Modality L-spine Radiographic Liseth ging Narrative 06/17/2025 10:07 PM EDT [facility] [address] [address] DXA Bone Densitometry Report: [06/08/2025] BMD test performed using the [employer] DXA System (analysis version: 14.10) manufactured by [employer]. REFERRING PROVIDER: Dr. Moustapha Katz MD CLINICAL INFORMATION: osteoporosis PATIENT NAME: David Trina Pop PATIENT AGE: 65 y.o. 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
--- OUTSIDE RECORDS SUMMARY | 2025-10-24 07:25 | XMS_ITS | Encounter Summary ---
Author Organization [facility] Address [address] [place] [address] Care Team Providers Care Sheet Metal Engineer Name Role Phone System, Provider Not [...] release of HIV test results or diagnoses. [id number] Reason for Visit * Reason Comments Appointment Encounter Details Date Type Department Care Team (Late st Contact Info) Description 10/03/2025 Telephone [facility] Liver Transplant at [address] [address] Pb Sy, RN Appointment Social History Tobacco [...] Time granted: 1041 Who granted: OPO OPO: [facility] OPO Contact: Recent illnesses [] Yes [...] need to bring equipment or solution to [facility]. They will get supplies from [...] Notifications: Department Phone Comments Time/Name Capacity Management [phone] Notified of patient's pending TXP ORGANS:LIVER Time:1130 Spoke to:NAASTASIIA HERNANDEZ [phone] OR scheduled for: per Dr. WINKLER Recipient in the OR time 10/03 Acute donor Risk (according to OPTN policy)NO (HCV, HBV, HIV, COVID) Notified Donor is DCD Heart using [employer] N/A Time:113 OR predictive maintenance specialist:AVANI LUGO ORGAN Time:104 BLOOD BANK [phone] For Liver and Heart only [address] [facility] Nursing Delivery Stock Clerk [phone] For delayed call in [email or web address] PACU or Sameday [phone] Delayed call in: If recipient OR is 2 hrs or less from admission, call PACU/Sameday (basedon where nursing timekeeping supervisor assigns patient) DELAYED CALL IN Abdominal Transplant 8CCP [phone] Transfer of care reported for abdominal txp Notified of dialysis type and last session if applicable Time:DELAYED CALL IN 8CCP predictive maintenance specialist: SICU [phone] Notify about abdominal txp admissions Time:1150 SICU predictive maintenance specialist:SHILOH Transplant Surgery Resident/LAISHA Wyatt PAGED@[phone] Time:1156 Spoke to:DR CHRISTIANSON Transplant Surgery Fellow QKhoa Time:1156 Spoke to:DR RUSSELL Transplant Research Team [phone] LEFT MESSAGE @4710 Time:1157 Spoke to: If applicable, Dialysis Unit EMR Time:N/A Spoke to: Pharmacy IV Room [phone] Liver Only Contact pharmacy to alert that HBIG will be needed when all the following are present: Donor: *HBsAg negative *HBV DNA/NII negative Recipient: *HBsAg positive *HBV DNA is detectable on most recent check Time:N/A Spoke to: Heart Transplant CVICU [phone] Transfer of care reported for heart txp Time:N/A CVICU predictive maintenance specialist: Email notification to Transplant Team(s) and OR predictive maintenance specialist. Received notification for potential Liver transplant for David Pop, 1960. Recipient Info: David Pop 1960 ABO: A CMV: NEGATIVE EBV: POSITIVE HepBsAb: POSITIVE Referring MD: Dr. Portia Maguire. Surgeon: Dr. PETERSON Dai ETA: DELAYED CALL IN OR time and date: 10/03 CRRT needed in OR: NO Venoveno bypass: NO Donor info: Donor ID: [id number] Match ID: [id number] Anti-HBc: Negative HBV NII: Negative HBsAg: Negative [...] documented as of this encounter Care Teams Sheet Metal Engineer Relationship Specialty Start Date End Date System, Provider Not In PCP - General 09/10/25 documented as of this encounter
--- OUTSIDE RECORDS SUMMARY | 2025-10-24 07:25 | XMS_ITS | Encounter Summary ---
Author Organization [facility] Address [address] [place] [address] Care Team Providers Care Billboard Installer Name Role Phone System, Provider Not In [...] release of HIV test results or diagnoses. [id number] Health Encounter Details Date Type Department Care Team (Late st Contact Info) Description 09/25/2025 Telephone [facility] Liver Transplant at [address] [address] Chapito Alcantar, SILVIO Social History Tobacco Use [...] is agreeable to be listed on the [facility] transplant wait list. Reviewed HBV/HCV/acute risk organs with patient. They are agreeable toall offers. Patient lives 1.5-2 hours from [facility]. documented in this encounter Plan of Treatment Not on file documented as of this encounter Visit Diagnoses Not on filedocumented in this encounter Additional Health Concerns Assessment Noted Time PHQ-9 Depression Total Score: 8 09/10/20 11:09 AM EDT documented as of this encounter Care Teams Billboard Installer Relationship Specialty Start Date End Date System, Provider Not In PCP - General 09/10/25 documented as of this encounter
--- OUTSIDE RECORDS SUMMARY | 2025-10-24 07:25 | XMS_ITS | Encounter Summary ---
Author Organization [facility] Address [address] [place] [address] Care Team Providers Care Asset Management Coordinator Name Role Phone System, Provider Not [...] release of HIV test results or diagnoses. [id number] Health Encounter Details Date Type Department Care Team (Late st Contact Info) Description 10/22/2025 Orders Only [facility] Liver Transplant at [address] [address] Ruma Benjamin, SILVIO S/P liver transplant ([facility]) (Primary Dx); Immunosuppression ([facility]) Social History Tobacco Use Types Packs/Day Years [...] Assessment Author Peripheral Vascular (WDL) X 10/22/2025 8:0 0 AM Karolyn Cheatham RN * Question Answer Date of Assessment Author Anti-Embolism Devices Bilateral;Sequenti al compression devices, below knee 10/22/2025 12:00 PM Karolyn Cheatham, SILVIO Anti-Embolism Intervention Off 10/22/2025 12:00 PM Karolyn Cheatham RN documented as of this encounter Plan of Treatment Scheduled Orders Name Type Priority Associated Diagnoses Orde r Schedule Hepatic Function Panel Lab Routine S/P liver transplant ([facility]-H[facility]) Immunosuppression ([facility]) twice weekly for 120 Occurrences starting 10/22/2025 until 04/22/2027 Renal Function Panel w/EGFR Lab Routine S/P liver transplant (CMS-HCC) Immunosuppression (CMS-HCC) twice weekly for 120 Occurrences starting 10/22/2025 until 04/22/2027 CBC Lab Routine S/P liver transplant (CMS-HCC) Immunosuppression (CMS-HCC) twice weekly for 120 Occurrences starting 10/22/2025 until 04/22/2027 Differential Lab Routine S/P liver transplant (CMS-HCC) Immunosuppression (CMS-HCC) twice weekly for 120 Occurrences starting 10/22/2025 until 04/22/2027 Tacrolimus level Lab Routine S/P liver transplant (CMS-HCC) Immunosuppression (CMS-HCC) twice weekly for 120 Occurrences starting 10/22/2025 until 04/22/2027 documented as of this encounter Visit Diagnoses Diagnosis S/P liver transplant (CMS-HCC)- Primary Immunosuppression (CMS-HCC) documented in this encounter Additional Health Concerns Assessment Noted Time PHQ-9 Depression Total Score: 8 09/10/20 25 11:09 AM EDT documented as of this encounter Care Teams Asset Management Coordinator Relationship Specialty Start Date End Date System, Provider Not In PCP - General 09/10/25 documented as of this encounter
--- OUTSIDE RECORDS SUMMARY | 2025-10-24 07:26 | XMS_ITS | Encounter Summary ---
Author Organization [facility] Address [address] [place] [address] Care Team Providers Care Assembly Machine Operator Name Role Phone System, Provider [...] release of HIV test results or diagnoses. [id number] Health Encounter Details Date Type Department Care Team (Late st Contact Info) Description 10/19/2025 Education Chart Note [facility] Liver Transplant at [address] [address] Giovanna June, RN Social History Tobacco Use Types Packs/Day [...] living in a correction (including now)? No 10/17/2025 Utilities Answer Date Recorded In the past 12 months has th e [employer], gas, oil, or water [employer] threatened to shut off services in your [...] Intervention On 10/19/2025 8:00 AM Angela Del Cid, SILVIO documented as of this encounter Progress Notes * Giovanna June RN - 10/19/2025 2:15 PM EST Education - Discharge: Post-Transplant Education and discharge planning discussed with patient and caregiver team including , Stacy. Primary support will be provided by Stacy. The time spent educating was 60 minutes discussing the following topics, including but not limited to: 1. Immunosuppression Precautions [x] 2. Immunosuppression Medications - action, dose, route, side effects [x] 3. Anti-Infective medications - action, dose, route, side effects, length of therapy [x] 4. Signs and symptoms of Infection/Rejection [x] 5. When to call clinical nursing coordinator [x] 6. Outpatient follow up including frequency of clinic visits and lab draws [x] 7. How to care for the transplant incision [x] 8. Completing the daily log including temperature, heart rate, blood pressure and blood glucose parameters [x] 9. Activity restrictions including sun exposure precautions, travel restrictions, pet safety, plants and gardening restrictions [x] 10. Importance of routine medical screenings and exams with other providers [x] 11. Understanding emotions follow transplant [x] 12. Importance of using the medication card and pill organizer to develop a system for medication administration. [x] 13. Enforced education on bring their medication card and daily log to each outpatient clinic visit. [x] [] Patient and caregiver(s) were attentive and receptive to learning, and asked appropriate questions.I encouraged all to review written materials and watch transplant education videos to reinforce theeducation provided today. Also provided written educational materials for reference, contact phone numbers and encouraged all to call with questions/concerns. The multidisciplinary transplant team and I will continue to assist this patient and caregiver team with discharge planning/education based on patient's medical condition. I will ensure the following and other items as necessary: 1. Appropriate and timely coordination of transplant care and education. 2. Collaborate with inpatient transplant team to ensure smooth transition to home or rehab facility. 3. If patient is discharged to rehab facility will arrange pharmacy education and pillbox packing in the outpatient setting prior to discharge home. 4. Arrange all outpatient transplant clinic follow up as appropriate. 5. Communicate progress of care coordination with the transplant team and notify of any challenges/obstacles that might delay discharge. David Pop has very good social support with a very good understanding of information provided. No barriers to discharge identified. Medication times 00/2099. Plans to use local pharmacy. Darvin Rivas. documented in this encounter Plan of Treatment Not on file documented as of this encounter Visit Diagnoses Not on filedocumented in this encounter Additional Health Concerns Assessment Noted Time PHQ-9 Depression Total Score: 8 09/10/20 25 11:09 AM EDT documented as of this encounter Care Teams Assembly Machine Operator Relationship Specialty Start Date End Date System, Provider Not In PCP - General 09/10/25 documented as of this encounter
--- OUTSIDE RECORDS SUMMARY | 2025-10-24 07:26 | XMS_ITS | Encounter Summary ---
Author Organization [facility] Address [address] [place] [address] Care Team Providers Care Shop Superintendent Name Role Phone System, Provider Not In [...] release of HIV test results or diagnoses. [id number] Health Encounter Details Date Type Department Care Team (Late st Contact Info) Description 10/22/2025 Chart Note [facility] Liver Transplant at [address] [address] Cori Womack, PharmD Liver Transplant Pharmacy Discharge Note Social History Tobacco Use Types Packs/Day Years [...] below knee 10/22/2025 12:00 PM Karolyn Cheatham, RN Anti-Embolism Intervention Off 10/22/2025 12:00 PM Karolyn Cheatham, RN documented as of this encounter Plan of Treatment Not on file documented as of this encounter Visit Diagnoses Not on filedocumented in this encounter Additional Health Concerns Assessment Noted Time PHQ-9 Depression Total Score: 8 09/10/20 11:09 AM EDT documented as of this encounter Care Teams Shop Superintendent Relationship Specialty Start Date End Date System, Provider Not In PCP - General 09/10/25 documented as of this encounter
--- OUTSIDE RECORDS SUMMARY | 2025-10-24 07:26 | XMS_ITS | Encounter Summary ---
Author Organization [facility] Address [address] [place] [address] Care Team Providers Care Apartment Maintenance Name Role Phone System, Provider Not In [...] release of HIV test results or diagnoses. [id number] Health Encounter Details Date Type Department Care Team (Late st Contact Info) Description 10/22/2025 Orders Only [facility] Liver Transplant at [address] [address] Felice Nugent III, MD [address] [place] [phone] Liver replaced by transplant ([facility]) (Primary Dx); Immunosuppressive management encounter following liver transplant ([facility]) Social History Tobacco Use Types Packs/Day Years [...] as of this encounter Visit Diagnoses Diagnosis Liver replaced by transplant (CMS-HCC)- Primary Liver replaced by transplant Immunosuppressive management encounter following liver transplant (CMS-HCC) documented in this encounter Additional Health Concerns Assessment Noted Time PHQ-9 Depression Total Score: 8 09/10/20 25 11:09 AM EDT documented as of this encounter Care Teams Apartment Maintenance Relationship Specialty Start Date End Date System, Provider Not In PCP - General 09/10/25 documented as of this encounter
--- OUTSIDE RECORDS SUMMARY | 2025-10-24 07:26 | XMS_ITS | Encounter Summary ---
Author Organization [facility] Address [address] [place] [address] Care Team Providers Care Coat Room Attendant Name Role Phone System, Provider [...] release of HIV test results or diagnoses. [id number] Health Encounter Details Date Type Department Care Team (Late st Contact Info) Description 10/18/2025 Chart Note [facility] Kidney Transplant at [address] [address] Ailin Wells Txp Patient Called In Social History Tobacco Use Types Packs/Day [...] 10/18/2025 8:00 AM Angela Del Cid RN documented as of this encounter Progress Notes * Ailin Wells - 10/18/2025 9:13 AM EST Txp Patient Called In Txp Date:10/17/2025 Organ: Liver Primary Ins: [employer] Sales Operations Associate: Serena Carter ext [phone] Txp Auth:[id number] Dates:09/24/2025-09/23/2026 Admit Auth: IV to obtain RX:[place] documented in this encounter Plan of Treatment Not on file documented as of this encounter Visit Diagnoses Not on filedocumented in this encounter Additional Health Concerns Assessment Noted Time PHQ-9 Depression Total Score: 8 09/10/20 11:09 AM EDT documented as of this encounter Care Teams Coat Room Attendant Relationship Specialty Start Date End Date System, Provider Not In PCP - General 09/10/25 documented as of this encounter
--- OUTSIDE RECORDS SUMMARY | 2025-10-24 07:26 | XMS_ITS | Encounter Summary ---
Author Organization [facility] Address [address] [place] [address] Care Team Providers Care Roofing Layer Name Role Phone System, Provider Not In [...] release of HIV test results or diagnoses. [id number] Health Encounter Details Date Type Department Care Team (Late st Contact Info) Description 10/23/2025 Orders Only [facility] Liver Transplant at [address] [address] Giovanna June, RN Liver replaced by transplant ([facility]) (Primary Dx) Social History Tobacco Use Types [...] Progress Notes * Giovanna June RN - 10/23/2025 11:55 AM EST David Pop needs a repeat Liver US in 2-3 weeks Adina in central scheduling 11/13 arrive 1115 NPO 8 hours documented in this encounter Plan of Treatment Scheduled Orders Name Type Priority Associated Diagnoses Orde r Schedule US Duplex Blx-Tqm-Rtpywck Comp Imaging Routine Liver replaced by transplant (CMS-HCC) Expected: 11/06/2025 (Approximate), Expires: 05/07/2026 US Abdomen Complete Imaging Routine Liver replaced by transplant (CMS-HCC) Expected: 11/06/2025 (Approximate), Expires: 05/07/2026 documented as of this encounter Visit Diagnoses Diagnosis Liver replaced by transplant (CMS-HCC)- Primary Liver replaced by transplant documented in this encounter Additional Health Concerns Assessment Noted Time PHQ-9 Depression Total Score: 8 09/10/20 11:09 AM EDT documented as of this encounter Care Teams Roofing Layer Relationship Specialty Start Date End Date System, Provider Not In PCP - General 09/10/25 documented as of this encounter
--- OUTSIDE RECORDS SUMMARY | 2025-10-24 07:27 | XMS_ITS | Encounter Summary ---
Author Organization [facility] Address [address] [place] [address] Care Team Providers Care Manager Process Excellence Name Role Phone System, Provider Not In [...] release of HIV test results or diagnoses. [id number] Health Encounter Details Date Type Department Care Team (Late st Contact Info) Description 09/19/2025 Telephone [facility] Liver Transplant at [address] [address] Chapito Alcantar RN Social History Tobacco Use [...] an OSH with a transfer pending to [facility]. Updated family that no bed [...] as of this encounter Care Teams Manager Process Excellence Relationship Specialty Start Date End Date System, Provider Not In PCP - General 09/10/25 documented as of this encounter
--- OUTSIDE RECORDS SUMMARY | 2025-10-24 07:27 | XMS_ITS | Encounter Summary ---
Author Organization [facility] Address [address] [place] [address] Care Team Providers Care Helicopter Crew Chief Name Role Phone Unknown, Attending Provider Primary [...] release of HIV test results or diagnoses. [id number] Health Encounter Details Date Type Department Care Team (Late st Contact Info) Description 09/13/2024 Orders Only [facility] RESULTS [address] [place] [address] System, Provider Not In Social History [...] on filedocumented in this encounter Care Teams Helicopter Crew Chief Relationship Specialty Start Date End Date Unknown, Attending Provider PCP - General 08/29/2508/16 System, Provider Not In PCP - General 09/10/25 documented as of this encounter
--- OUTSIDE RECORDS SUMMARY | 2025-10-24 07:27 | XMS_ITS | Encounter Summary ---
Author Organization Healthcare Address [address] [place] [address] Care Team Providers Care Bleach Boiler Puller Name Role Phone Ruma Hernández [employer] RADIO OPERATOR Unavailable [phone] Chris Medel MD Primary Care Provider [phone] Encounter Details Date Type Department Care Team (Late st Contact Info) Description 07/19/2025 Results Follow-Up [facility] [address] [place] [phone] Meaghan Le, RN [facility] LIVER RID-[id number] [address] [place] [address] Social History Tobacco Use Types Packs/Day Years [...] 02/19/2025 How often do you attend [facility] or [facility] services? More than 4 times per year 02/19/2025 Do you belong to any clubs o r organizations such as jewish groups, unions, [employer] or athletic groups, or school groups? Yes [...] and heating? Not hard at all 06/15/2025 [facility] Stress Questionnaire Answer [...] drink first t luisa in the morning (EYE-DAMAGED FREIGHT INSPECTOR) to steady your nerves or to get rid of a hangover? 0 06/14/2025 CAGE Questionnaire Score 0 025 Utilities Answer Date Recorded In the past 12 months has th e [employer], gas, oil, or water [employer] threatened to shut off services in your [...] E [facility], [address] [place] [address] Suhail Brock MD [address] [facility] [address] [place] [address] 12/12/2025 8:30 AM EST Clinical Support [facility] [place] [address] [facility] [address] [place] [phone] 12/12/2025 10:00 AM EST Office Visit [facility] [address] [facility] [address] [place] [address] Portia Maguire MD [address] [facility] [address] [place] [phone] documented as of this encounter Visit Diagnoses [...] documented as of this encounter Care Teams Bleach Boiler Puller Relationship Specialty [place] [address] PCP - General 03/14/25 Ruma Hernández APRN [address] [place] [address] Referring Physician Gastroenterology 07/30/23 documented as of this encounter
--- OUTSIDE RECORDS SUMMARY | 2025-10-24 07:27 | XMS_ITS | Encounter Summary ---
Author Organization [facility] Address [address] [place] [address] Care Team Providers Care B2B Appointment Setter Name Role Phone Unknown, Attending Provider Primary [...] release of HIV test results or diagnoses. [id number] Reason for Referral * Imaging/Cardiovascular Scan (Routine) - New Request Specialty Diagnoses / Procedures Referred By Gianna reyes Referred To Contact Radiology Procedures CT Abdomen and or Pelvis Outside Exam System, Provider Not In [address] [address] Referral ID Status Reason Start Date Expiration Date V isits Requested Visits Authorized [id number] New Request 09/08/2025 03/07/2026 1 1 Encounter Details Date Type Department Care Team (Late st Contact Info) Description 04/21/2024 Orders Only EXTERNAL PROV RESULTS [address] [place] [address] System, Provider Not In Social History Tobacco [...] on filedocumented in this encounter Care Teams B2B Appointment Setter Relationship Specialty Start Date End Date Unknown, Attending Provider PCP - General 08/29/2508/16 System, Provider Not In PCP - General 09/10/25 documented as of this encounter
--- OUTSIDE RECORDS SUMMARY | 2025-10-24 07:27 | XMS_ITS | Encounter Summary ---
Author Organization [facility] Address [address] [place] [address] Care Team Providers Care Organ Grinder Name Role Phone Unknown, Attending Provider Primary [...] release of HIV test results or diagnoses. [id number] Reason for Referral * Imaging/Cardiovascular Scan (Routine) - New Request Specialty Diagnoses / Procedures Referred By Gianna reyes Referred To Contact Radiology Procedures CT Abdomen and or Pelvis Outside Exam System, Provider Not In [address] [address] Referral ID Status Reason Start Date Expiration Date V isits Requested Visits Authorized [id number] New Request 09/08/2025 03/07/2026 1 1 Encounter Details Date Type Department Care Team (Late st Contact Info) Description 03/14/2025 Orders Only EXTERNAL PROV RESULTS [address] [place] [address] System, Provider Not In Social History Tobacco [...] on filedocumented in this encounter Care Teams Organ Grinder Relationship Specialty Start Date End Date Unknown, Attending Provider PCP - General 08/29/2508/16 System, Provider Not In PCP - General 09/10/25 documented as of this encounter
--- OUTSIDE RECORDS SUMMARY | 2025-10-24 07:27 | XMS_ITS | Encounter Summary ---
Author Organization [facility] Address [address] [place] [address] Care Team Providers Care Income Tax Manager Name Role Phone Unknown, Attending Provider [...] release of HIV test results or diagnoses. [id number] Health Encounter Details Date Type Department Care Team (Late st Contact Info) Description 09/05/2025 Telephone [facility] Liver Transplant at [address] [address] Chapito Alcantar RN Social History Tobacco Use [...] on filedocumented in this encounter Care Teams Income Tax Manager Relationship Specialty Start Date End Date Unknown, Attending Provider PCP - General 08/29/2508/16 documented as of this encounter
--- OUTSIDE RECORDS SUMMARY | 2025-10-24 07:27 | XMS_ITS | Encounter Summary ---
Author Organization [facility] Address [address] [place] [address] Care Team Providers Care Color Television Console Monitor Name Role Phone Unknown, Attending Provider Primary [...] release of HIV test results or diagnoses. [id number] Health Encounter Details Date Type Department Care Team (Late st Contact Info) Description 09/05/2025 Abstract [facility] Liver Transplant at [address] [address] Chapito Alcantar, SILVIO Alcoholic cirrhosis of liver [...] disease documented in this encounter Care Teams Color Television Console Monitor Relationship Specialty Start Date End Date Unknown, Attending Provider PCP - General 08/29/2508/16 documented as of this encounter
--- OUTSIDE RECORDS SUMMARY | 2025-10-24 07:27 | XMS_ITS | Encounter Summary ---
Author Organization [facility] Address [address] [place] [address] Care Team Providers Care Clasp Machine Operator Name Role Phone Unknown, Attending [...] release of HIV test results or diagnoses. [id number] Health Encounter Details Date Type Department Care Team (Late st Contact Info) Description 09/05/2025 Telephone [facility] Liver Transplant at [address] [address] Cori Dover MA Social History Tobacco Use [...] request the following images be sent to [facility] Pacs: Must send fax request. Request [...] on filedocumented in this encounter Care Teams Clasp Machine Operator Relationship Specialty Start Date End Date Unknown, Attending Provider PCP - General 08/29/2508/16 documented as of this encounter
--- OUTSIDE RECORDS SUMMARY | 2025-10-24 07:27 | XMS_ITS | Encounter Summary ---
Author Organization [facility] Address [address] [place] [address] Care Team Providers Care Riding Instructor Name Role Phone Unknown, Attending Provider Primary [...] release of HIV test results or diagnoses. [id number] Encounter Details Date Type Department Care Team (Late st Contact Info) Description 06/13/2025 Orders Only EXTERNAL PROV RESULTS [address] [place] [id number] System, Provider Not In Social History Tobacco [...] on filedocumented in this encounter Care Teams Riding Instructor Relationship Specialty Start Date End Date Unknown, Attending Provider PCP - General 08/29/2508/16 System, Provider Not In PCP - General 09/10/25 documented as of this encounter
--- OUTSIDE RECORDS SUMMARY | 2025-10-24 07:29 | XMS_ITS | Encounter Summary ---
Author Organization [facility] Address [address] [place] [address] Care Team Providers Care Supervisor Wood Room Name Role Phone System, Provider Not In [...] release of HIV test results or diagnoses. [id number] Health Encounter Details Date Type Department Care Team (Late st Contact Info) Description 09/17/2025 Telephone [facility] at [facility] [address] [place] [address] Navi Sims MD [address] [facility] [address] [place] [address] Social History Tobacco Use Types Packs/Day [...] as of this encounter Care Teams Supervisor Wood Room Relationship Specialty Start Date End Date System, Provider Not In PCP - General 09/10/25 documented as of this encounter
--- OUTSIDE RECORDS SUMMARY | 2025-10-24 07:30 | XMS_ITS | Encounter Summary ---
Author Organization [facility] Address [address] [place] [address] Care Team Providers Care Business Performance Manager Name Role Phone System, Provider Not [...] release of HIV test results or diagnoses. [id number] Health Encounter Details Date Type Department Care Team (Late st Contact Info) Description 09/13/2025 Chart Note [facility] Liver Transplant at [address] [address] Chapito Alcantar RN Multi-disciplinary Hepatobiliary Case Conference [...] as of this encounter Care Teams Business Performance Manager Relationship Specialty Start Date End Date System, Provider Not In PCP - General 09/10/25 documented as of this encounter
--- OUTSIDE RECORDS SUMMARY | 2025-10-24 07:30 | XMS_ITS | Encounter Summary ---
Author Organization [facility] Address [address] [place] [address] Care Team Providers Care Elementary Educator Name Role Phone Ruma Hernández ACCOUNTING ADMINISTRATOR Unavailable [phone] Chris Medel MD Primary Care Provider [phone] Reason for Referral * Imaging (Routine) - Closed Specialty Diagnoses / Procedures Referred By Gianna reyes Referred To Contact Radiology Diagnoses Pre-liver transplant, listed Procedures MR Abdomen w and wo IV Contrast Portia Maguire MD [address] [facility] [address] [place] [address] Phone: tel: fax: Referral ID Status Reason Start Date Expiration Date Visits Re quested Visits Authorized [id number] Closed 09/05/2025 03/07/2027 1 1 Encounter Details Date Type Department Care Team (Late st Contact Info) Description 09/05/2025 Orders Only [facility] [address] [facility] [address] [place] [address] Meaghan Le, RN HOSPITAL LIVER [id number] [address] [place] [address] Pre-liver transplant, listed (Primary Dx) Social History [...] 02/19/2025 How often do you attend [facility] or [facility] services? More than 4 times [...] drink first t luisa in the morning (EYE-BEAN VINER) to steady your nerves or to get [...] [address] [facility], [address] [place] [address] Suhail Brock MD [address] [place] [address] 12/12/2025 8:30 AM EST Clinical Support [facility] [place] [address] [place] [address] 12/12/2025 10:00 AM EST Office Visit [facility] [place] [address] [place] [address] Portia Maguire MD [address] [place] [address] documented as of this [...] are consistent with and integrated into the [employer] of Liver Diseases [...] using the following sequences: coronal single shot S1teatmmtz fast spin echo, axial T2 weighted sequences [...] are consistent with and integrated into the [place] Associationfor the Study of Liver Diseases (AASLD) [...] as of this encounter Care Teams Elementary Educator Relationship Specialty [place] [address] PCP - General 03/14/25 Ruma Hernández APRN [address] [place] [address] Referring Physician Gastroenterology 07/30/23 documented as of this encounter
--- OUTSIDE RECORDS SUMMARY | 2025-10-24 07:30 | XMS_ITS | Encounter Summary ---
Author Organization [facility] Address [address] [place] [address] Care Team Providers Care Pouncing Lathe Operator Name Role Phone System, Provider Not [...] release of HIV test results or diagnoses. [id number] Health Encounter Details Date Type Department Care Team (Late st Contact Info) Description 09/11/2025 Telephone [facility] Liver Transplant at [address] [address] Chapito Alcantar RN Social History Tobacco Use [...] documented as of this encounter Care Teams Pouncing Lathe Operator Relationship Specialty Start Date End Date System, Provider Not In PCP - General 09/10/25 documented as of this encounter
--- OUTSIDE RECORDS SUMMARY | 2025-10-24 07:30 | XMS_ITS | Encounter Summary ---
Author Organization Healthcare Address [address] [place] [address] Care Team Providers Care Able Bodied Seaman Name Role Phone Ruma Hernández ADMINISTRATIVE PROJECT COORDINATOR Unavailable [phone] Chris Medel MD Primary Care Provider [phone] Encounter Details Date Type Department Care Team (Late st Contact Info) Description 08/31/2025 Results Follow-Up [facility] [address] [place] [address] Meaghan Le, RN [facility] LIVER [id number] [address] [place] [address] Social History Tobacco Use Types Packs/Day Years [...] often do you attend [facility] or quaker services? More than 4 times per year 02/19/2025 Do you belong to any clubs o r organizations such as nondenominational groups, unions, [employer] or athletic groups, or school groups? Yes [...] all 06/15/2025 [facility] - Occupational Stress Questionnaire Answer [...] drink first t luisa in the morning (EYE-HEAT SEAL OPERATOR) to steady your nerves or to get rid of a hangover? 0 06/14/2025 CAGE Questionnaire Score 0 025 Utilities Answer Date Recorded In the past 12 months has th e [employer], gas, oil, or water [employer] threatened to shut off services in your [...] [facility], [address] [place] [address] Suhail Brock MD [address] [place] [address] 12/12/2025 8:30 AM EST Clinical Support [facility] [place] [address] [facility] [address] [place] [address] 12/12/2025 10:00 AM EST Office Visit [facility] [address] [facility] [address] [place] [address] Portia Maguire MD [address] [facility] [address] [place] [address] documented as of this encounter Visit Diagnoses [...] documented as of this encounter Care Teams Able Bodied Seaman Relationship Specialty [place] [id number] PCP - General 03/14/25 Ruma Hernández APRN [address] [place] [address] Referring Physician Gastroenterology 07/30/23 documented as of this encounter
--- OUTSIDE RECORDS SUMMARY | 2025-10-24 07:30 | XMS_ITS | Encounter Summary ---
Author Organization Healthcare Address [address] [place] [address] Care Team Providers Care Book Retailer Name Role Phone Ruma Hernández CARPENTRY FOREMAN Unavailable [phone] Chris Medel MD Primary Care Provider [phone] Encounter Details Date Type Department Care Team [...] 06/15/2025 How often do you attend [facility] or church services? More than 4 [...] and heating? Not hard at all 06/15/2025 [facility] [place] of Occupat ional Health - Occupational Stress [...] drink first t luisa in the morning (EYE-ROUTE RIDER) to steady your nerves or to get [...] Upcoming Encounters Date Type Department Care Team ([facility] st Contact Info) Description 11/27/2025 3:45 PM EST Office Visit Medical Office Building Urology [address] [facility], [address] [place] [address] Suhail Brock MD [address] [place] [address] 12/12/2025 8:30 AM EST Clinical Support [facility] [address] [place] [address] 12/12/2025 10:00 AM EST Office Visit [facility] [address] [place] [address] Portia Maguire MD [address] [place] [address] documented as of this encounter Visit Diagnoses [...] documented as of this encounter Care Teams Book Retailer Relationship Specialty [place] [address] PCP - General 03/14/25 Ruma Hernández APRN [address] [place] [address] Referring Physician Gastroenterology 07/30/23 documented as of this encounter
--- OUTSIDE RECORDS SUMMARY | 2025-10-24 07:30 | XMS_ITS | Encounter Summary ---
Author Organization [facility] Address [address] [place] [address] Care Team Providers Care Interactive Multimedia Designer Name Role Phone System, Provider Not In [...] release of HIV test results or diagnoses. [id number] Health Encounter Details Date Type Department Care Team (Late st Contact Info) Description 09/10/2025 Chart Note [facility] Liver Transplant at [address] [address] Chapito Alcantar RN Alcoholic cirrhosis of liver [...] Alcantar RN - 09/10/2025 9:11 AM EDT Leupp tab updated documented in this encounter Plan [...] QT: 464 ms QTc: 478 ms P Milnor: 27 degrees R Milnor: 58 degrees T Milnor: 22 degrees Diagnosis Line: NORMAL SINUS RHYTHM ^ NORMAL ECG ^ No previous ECGs available ^ Confirmed by MD TIP, [facility] ([id number]) on 09/10/2025 3:28:36 PM Buddy Zimmerman [...] documented as of this encounter Care Teams Interactive Multimedia Designer Relationship Specialty Start Date End Date System, Provider Not In PCP - General 09/10/25 documented as of this encounter
--- OUTSIDE RECORDS SUMMARY | 2025-10-24 07:31 | XMS_ITS | Encounter Summary ---
Author Organization [facility] Address [address] [place] [address] Care Team Providers Care Cardiologist Name Role Phone System, Provider Not In [...] release of HIV test results or diagnoses. [id number] Health Encounter Details Date Type Department Care Team (Late st Contact Info) Description 09/10/2025 Nutrition [facility] Kidney Transplant at [address] [address] Social History Tobacco Use [...] 2.1 (L) 09/10/2025 No results found for: QPHY36F PMH: Past Medical History: Diagnosis Date Epididymitis [...] Dietitian - Solid Organ Transplant Contact via [employer] Chat [1] Allergies Allergen Reactions Lisinopril Other (See Comments) documented in this encounter Plan of Treatment Not on file documented as of this encounter Visit Diagnoses Not on filedocumented in this encounter Additional Health Concerns Assessment Noted Time PHQ-9 Depression Total Score: 8 09/10/20 11:09 AM EDT documented as of this encounter Care Teams Cardiologist Relationship Specialty Start Date End Date System, Provider Not In PCP - General 09/10/25 documented as of this encounter
--- OUTSIDE RECORDS SUMMARY | 2025-10-24 07:32 | XMS_ITS | Encounter Summary ---
Author Organization Healthcare Address [address] [place] [address] Care Team Providers Care Community Service Organization Director Name Role Phone Ruma Hernández MENSWEAR SALESPERSON Unavailable Chris Medel MD Primary Care Provider [phone] Encounter Details Date Type Department Care Team [...] do you attend [facility] or latter day services? More than 4 [...] and heating? Not hard at all 06/15/2025 [facility] [place] of Occupat ional Health - Occupational Stress [...] time in the past 12 m [facility], were you homeless or living [...] drink first t luisa in the morning (EYE-MEDICAL CODING TECHNICIAN) to steady your nerves or to [...] Upcoming Encounters Date Type Department Care Team ([facility] st Contact Info) Description 11/27/2025 3:45 PM EST Office Visit Medical Office Building Urology [address] [facility], [address] [place] [address] Suhail Brock MD [address] [place] [address] 12/12/2025 8:30 AM EST Clinical Support [facility] [place] [address] [place] [address] 12/12/2025 10:00 AM EST Office Visit [facility] [place] [address] [place] [address] Portia Maguire MD [address] [place] [address] documented as of this encounter Visit Diagnoses [...] documented as of this encounter Care Teams Community Service Organization Director Relationship Specialty [place] [address] PCP - General 03/14/25 Ruma Hernández APRN [address] [place] [address] Referring Physician Gastroenterology 07/30/23 documented as of this encounter
--- OUTSIDE RECORDS SUMMARY | 2025-10-24 07:32 | XMS_ITS | Encounter Summary ---
Author Organization Healthcare Address [address] [place] [address] Care Team Providers Care Motion Pictures Cartoonist Name Role Phone Ruma Hernández SASH ASSEMBLER Unavailable [phone] Chris Medel MD Primary Care Provider [phone] Encounter Details Date Type Department Care Team (Late st Contact Info) Description 09/12/2025 Results Follow-Up [facility] [address] [place] [address] Meaghan Le, RN [facility] LIVER [id number] [address] [place] [address] Social History Tobacco Use Types Packs/Day Years [...] do you attend [facility] or confucianism services? More than 4 times per year 02/19/2025 Do you belong to any clubs o r organizations such as buddhism groups, unions, [employer] or athletic groups, or school groups? Yes [...] at all 06/15/2025 [facility] - Occupational Stress Questionnaire Answer [...] time in the past 12 m [facility], were you homeless or living in [...] drink first t luisa in the morning (EYE-PRINTED FORMS PROOFREADER) to steady your nerves or to get rid of a hangover? 0 06/14/2025 CAGE Questionnaire Score 0 025 Utilities Answer Date Recorded In the past 12 months has th e [employer], gas, oil, or water [employer] threatened to shut off services in your [...] Medical Office Building Urology [address] [facility], [address] [place] [address] Suhail Brock MD [address] [facility] [address] [place] [address] 12/12/2025 8:30 AM EST Clinical Support [facility] [place] [address] [facility] [address] [place] [address] 12/12/2025 10:00 AM EST Office Visit [facility] [place] [address] [facility] [address] [place] [address] Portia Maguire MD [address] [place] [address] documented as of this encounter [...] documented as of this encounter Care Teams Motion Pictures Cartoonist Relationship Specialty [place] [address] PCP - General 03/14/25 Ruma Hernández APRN [address] [facility] [address] [place] [address] Referring Physician Gastroenterology 07/30/23 documented as of this encounter
--- OUTSIDE RECORDS SUMMARY | 2025-10-24 07:32 | XMS_ITS | Encounter Summary ---
Author Organization [facility] Address [address] [place] [address] Care Team Providers Care Insulation Worker Furnace Installer Name Role Phone System, Provider Not [...] release of HIV test results or diagnoses. [id number] Health Encounter Details Date Type Department Care Team (Late st Contact Info) Description 09/11/2025 Chart Note [facility] Kidney Transplant at [address] [address] Ailin Wells Faxed Clinical for Listing/Txp Auth [...] Auth Organ: liver Listed Date: TBD Ins: [place] [employer] Merchandising Execution Manager: pending documented in this encounter Plan of Treatment Not on file documented as of this encounter Visit Diagnoses Not on filedocumented in this encounter Additional Health Concerns Assessment Noted Time PHQ-9 Depression Total Score: 8 09/10/20 25 11:09 AM EDT documented as of this encounter Care Teams Insulation Worker Furnace Installer Relationship Specialty Start Date End Date System, Provider Not In PCP - General 09/10/25 documented as of this encounter
--- OUTSIDE RECORDS SUMMARY | 2025-10-24 07:32 | XMS_ITS | Encounter Summary ---
Author Organization [facility] Address [address] [place] [address] Care Team Providers Care Advertising Account Representative Name Role Phone System, Provider Not [...] release of HIV test results or diagnoses. [id number] Health Encounter Details Date Type Department Care Team (Late st Contact Info) Description 09/11/2025 Telephone [facility] Liver Transplant at [address] [address] Chapito Alcantar, SILVIO Social History Tobacco Use [...] as of this encounter Care Teams Advertising Account Representative Relationship Specialty Start Date End Date System, Provider Not In PCP - General 09/10/25 documented as of this encounter
--- OUTSIDE RECORDS SUMMARY | 2025-10-24 07:34 | XMS_ITS ---
Author Organization [facility] Address [address] 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
--- OUTSIDE RECORDS SUMMARY | 2025-10-24 07:34 | XMS_ITS | Encounter Summary ---
Author Organization [facility] Address [address] [place] [address] Care Team Providers Care Physical Science Professor Name Role Phone System, Provider Not [...] release of HIV test results or diagnoses. [id number] Health Encounter Details Date Type Department Care Team (Late st Contact Info) Description 09/17/2025 [facility]ill [facility] at [facility] [address] [place] [phone] Johnny Dbuois RN Social History Tobacco Use Types Packs/Day [...] encounter Miscellaneous Notes * Telephone Encounter - Jonhny Dubois RN - 09/17/2025 4:16 PM EST Received fax states ivermectin requires [place]. Called pt and spoke with and informed her that medication will need to be sent to [facility] pharmacy to be filled. Gave [facility] pharmacy phonenumber to call about getting medication mailed to their house possibly. documented in this encounter Plan of Treatment Not on file documented as of this encounter Visit Diagnoses Not on filedocumented in this encounter Additional Health Concerns Assessment Noted Time PHQ-9 Depression Total Score: 8 09/10/20 25 11:09 AM EDT documented as of this encounter Care Teams Physical Science Professor Relationship Specialty Start Date End Date System, Provider Not In PCP - General 09/10/25 documented as of this encounter
--- OUTSIDE RECORDS SUMMARY | 2025-10-24 07:34 | XMS_ITS | Encounter Summary ---
Author Organization [facility] Address [address] [place] [address] Care Team Providers Care Grease Cup Filler Name Role Phone System, Provider Not In [...] release of HIV test results or diagnoses. [id number] Health Encounter Details Date Type Department Care Team (Late st Contact Info) Description 09/10/2025 Social Work [facility] Liver Transplant at [address] [address] Michelle Ho MSW, LSW Social History Tobacco [...] PSYCHOSOCIAL ASSESSMENT Support Persons: Stacy Pop (): [phone] Daniel (brother) Gloria (daughter) Urban Patterson (neighbor) Lan (son): [phone] Past and Current Life / Social Situation: [...] at [facility]. He does not have any hinduism, ethnic, or personal objections to accepting blood [...] Score 8 GAD7 Scores: 09/10/2025 11:09 AM HWS2Eilbf Score CLAUDIA-7 Total Score 1 Reviewed results [...] discussed the patient's psychosocial evaluation with the engineering coordinator (Ezekiel Alcantar). The patient participated in [...] number for additional needs. MADHAV Arias, TONYA [phone] TRANSPLANT PSYCH NOTEWRITER: Txp Clinic Entry Point: 03 [facility] Social Work Assessment: 01 New Patient SW [facility] Patient Barriers & Recommendations: 01 No Barriers documented in this encounter Plan of Treatment Not on file documented as of this encounter Visit Diagnoses Not on filedocumented in this encounter Additional Health Concerns Assessment Noted Time PHQ-9 Depression Total Score: 8 09/10/20 11:09 AM EDT documented as of this encounter Care Teams Grease Cup Filler Relationship Specialty Start Date End Date System, Provider Not In PCP - General 09/10/25 documented as of this encounter
--- OUTSIDE RECORDS SUMMARY | 2025-10-24 07:34 | XMS_ITS | Encounter Summary ---
Author Organization Healthcare Address [address] [place] [address] Care Team Providers Care Trailer Rental Clerk Name Role Phone Urban Brantley DO Primary Care Provider [phone] Ruma Hernández SUPERINTENDENT BUILDING Unavailable [phone] Chris Medel MD Primary Care Provider [phone] Encounter Details Date Type Department Care Team (Late Contact Info) Description 05/09/2023 Orders Only External Location [address] [place] [address] Provider, External Social History Tobacco Use Types [...] Department Care Team (Late Contact Info) Description 11/27/2025 3:45 PM EST Office Visit Medical Office Building Urology [address] [facility], [address] [place] [address] Suhail Brock MD [address] [place] [address] 12/12/2025 8:30 AM EST Clinical Support [facility] Transplant [place] [address] [facility] [address] [place] [address] 12/12/2025 10:00 AM EST Office Visit [facility] Transplant [place] [address] [facility] [address] [place] [address] Portia Maguire MD [address] [facility] [address] [place] [address] documented as of this encounter [...] documented as of this encounter Care Teams Trailer Rental Clerk Relationship Specialty Start Date End Date Urban Brantley DO [address] [place] [address] PCP - General 07/30/23 03/13/25 [place] [address] PCP - General 03/14/25 Ruma Hernández APRN [address] [facility] [address] [place] [address] Referring Physician Gastroenterology 07/30/23 documented as of this encounter
--- OUTSIDE RECORDS SUMMARY | 2025-10-24 07:34 | XMS_ITS | Encounter Summary ---
Author Organization Healthcare Address [address] [place] [address] Care Team Providers Care Purchasing Administrative Assistant Name Role Phone Ruma Hernández LEGISLATIVE ASSISTANT Unavailable [phone] Chris Medel MD Primary Care Provider [phone] Encounter Details Date Type Department Care Team (Late st Contact Info) Description 08/29/2025 Orders Only [facility] Medicine Specialties [address] [place] [address] Provider, [place] [address] [place] [id number] Social History Tobacco Use Types Packs/Day Years [...] attend [facility] or temple services? More than 4 times per year 02/19/2025 Do you belong to any clubs o r organizations such as jewish groups, unions, THERAVECTYSternal or athletic groups, or school groups? Yes [...] [facility] - Occupational Stress Questionnaire Answer [...] drink first t luisa in the morning (EYE-PRESBYTERIAN CLERGY) to steady your nerves or to get rid of a hangover? 0 06/14/2025 CAGE Questionnaire Score 0 025 Utilities Answer Date Recorded In the past 12 months has th e [employer], gas, oil, or water [employer] threatened to shut off services in your [...] [address] [facility], [address] [place] [address] Suhail Brock MD [address] [place] [address] 12/12/2025 8:30 AM EST Clinical Support [facility] Trans[facility] [address] [place] [address] 12/12/2025 10:00 AM EST Office Visit [facility] Transplant [place] [address] [place] [address] Portia Maguire MD [address] [place] [address] documented as of this encounter Procedures Procedure [...] EDT) Blood Venous blood specimen / Unknown Historical Provider LAB BLOOD ORDERABLES Final R esult * CBC and Differential (08/29/2025 11:11 AM EDT) Blood Venous blood specimen / Unknown [facility] Provider LAB BLOOD ORDERABLES Final [...] documented as of this encounter Care Teams Purchasing Administrative Assistant Relationship Specialty [place] [address] PCP - General 03/14/25 Ruma Hernández APRN [address] [place] [address] Referring Physician Gastroenterology 07/30/23 documented as of this encounter
--- OUTSIDE RECORDS SUMMARY | 2025-10-24 07:35 | XMS_ITS | Encounter Summary ---
Author Organization Healthcare Address [address] [place] [address] Care Team Providers Care Technical Product Manager Name Role Phone Ruma Hernández LINE MECHANIC Unavailable [phone] Chris Medel MD Primary Care Provider [phone] Encounter Details Date Type Department Care Team (Late st Contact Info) Description 06/29/2025 Results Follow-Up [facility] [address] [place] [address] Meaghan Le, RN [facility] LIVER [id number] [address] [place] [address] Social History Tobacco Use Types Packs/Day Years [...] you attend [facility] or pentecostal services? More than 4 times per year 02/19/2025 Do you belong to any clubs o r organizations such as islam groups, unions, [employer] or athletic groups, or school groups? Yes [...] hard at all 06/15/2025 [facility] - Occupational Stress Questionnaire Answer [...] drink first t luisa in the morning (EYE-DELINQUENT ACCOUNT CLERK) to steady your nerves or to get rid of a hangover? 0 06/14/2025 CAGE Questionnaire Score 0 025 Utilities Answer Date Recorded In the past 12 months has th [employer], gas, oil, or water [employer] threatened to shut off services in [...] Visit Medical Office Building Urology [address] [facility], [address] [place] [address] Suhail Brock MD [address] [place] [address] 12/12/2025 8:30 AM EST Clinical Support [facility] [address] [place] [address] 12/12/2025 10:00 AM EST Office Visit [facility] [address] [place] [address] Portia Maguire MD [address] [place] [address] documented as of this encounter Visit Diagnoses [...] documented as of this encounter Care Teams Technical Product Manager Relationship Specialty [place] [address] PCP - General 03/14/25 Ruma Hernández APRN [address] [facility] [address] [place] [address] Referring Physician Gastroenterology 07/30/23 documented as of this encounter
--- OUTSIDE RECORDS SUMMARY | 2025-10-24 07:35 | XMS_ITS | Encounter Summary ---
Author Organization Healthcare Address [address] [place] [address] Care Team Providers Care Windshield Wiper Repairer Name Role Phone Urban Brantley DO Primary Care Provider [phone] Ruma Hernández CLINICAL MANAGER Unavailable [phone] Chris Medel MD Primary Care Provider [phone] Encounter Details Date Type Department Care Team (Late Contact Info) Description 03/22/2023 Orders Only External Location [address] [place] [address] Provider, External Social History Tobacco Use Types [...] [facility], [address] [place] [address] Suhail Brock MD [address] [place] [address] 12/12/2025 8:30 AM EST Clinical Support [facility] Transplant [place] [address] [facility] [address] [place] [address] 12/12/2025 10:00 AM EST Office Visit [facility] Transplant [place] [address] [facility] [address] [place] [address] Portia Maguire MD [address] [facility] [address] [place] [address] documented as of this encounter [...] documented as of this encounter Care Teams Windshield Wiper Repairer Relationship Specialty Start Date End Date Urban Brantley DO [address] [place] [address] PCP - General 07/30/23 03/13/25 [place] [address] PCP - General 03/14/25 Ruma Hernández APRN [address] [place] [address] Referring Physician Gastroenterology 07/30/23 documented as of this encounter
--- OUTSIDE RECORDS SUMMARY | 2025-10-24 07:35 | XMS_ITS | Encounter Summary ---
Author Organization [facility] Address [address] [place] [address] Care Team Providers Care Tip Scourer Name Role Phone System, Provider Not In [...] release of HIV test results or diagnoses. [id number] Reason for Visit * Reason Comments Prior Authorization Encounter Details Date Type Department Care Team (Late st Contact Info) Description 09/18/2025 Pharmacy Services [facility] [address] [place] [address] Delaney Bahena RXT Social History Tobacco Use [...] documented as of this encounter Care Teams Tip Scourer Relationship Specialty Start Date End Date System, Provider Not In PCP - General 09/10/25 documented as of this encounter
--- OUTSIDE RECORDS SUMMARY | 2025-10-24 07:35 | XMS_ITS | Encounter Summary ---
Author Organization Healthcare Address [address] [place] [address] Care Team Providers Care Underground Utility Locator Name Role Phone Urban Brantley DO Primary Care Provider [phone] Ruma Hernández STEWARDING SUPERVISOR Unavailable [phone] Chris Medel MD Primary Care Provider [phone] Encounter Details Date Type Department Care Team (Late Contact Info) Description 03/22/2023 Orders Only External Location [address] [place] [address] Provider, External Social History Tobacco Use Types [...] [address] [facility], [address] [place] [address] Suhail Brock MD [address] [place] [address] 12/12/2025 8:30 AM EST Clinical Support [facility] Transplant [place] [address] [facility] [address] [place] [address] 12/12/2025 10:00 AM EST Office Visit [facility] Transplant [place] [address] [facility] [address] [place] [address] Portia Maguire MD [address] [facility] [address] [place] [address] documented as of this encounter [...] documented as of this encounter Care Teams Underground Utility Locator Relationship Specialty Start Date End Date Urban Brantley DO [address] [place] [address] PCP - General 07/30/23 03/13/25 [place] [address] PCP - General 03/14/25 Ruma Hernández APRN [address] [place] [address] Referring Physician Gastroenterology 07/30/23 documented as of this encounter
--- OUTSIDE RECORDS SUMMARY | 2025-10-24 07:35 | XMS_ITS ---
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 Donor Information Organ ABO Source Meets Risk Criteria HLA Match Mismatches Cross Match Liver Transplanted O DBD No A: B: DR: Liver Donor Serology Results Anti-CMV CMV IgG: Negative CMV IgM: Negative EBV IgG EBV VCA IgG: Positive Anti-HCV HCV Ab: Negative HCV RNA: Negative Anti-HBcAb HBC Total: Negative HBsAg HBsAg: Negative HBV DNA No results on file Anti-HIV I/II HIV RNA: Negative Anti-HTLV I/II HTLV: Negative RPR/VDRL RPR: Negative EBV IgM EBV VCA IgM: Negative HBsAb No results on file EBNA EBNA IgG: Positive EBNA IgM: Negative Care Team Name Role Phone Fax Email Ruma Benjamin RN Liver Coordinator N/A N/ A N/A Chapito Alcantar RN Txp Pre Coordinator N/A N/A N/A Vani Drew MD Txp Surgeon [phone] N/A Portia Maguire Referring Physician [phone] N/A Michelle Ho RUBBLE PLACER, MOLD PARTER Txp Shipping Clerk/Admin N/A N/A N/A Ruma Benjamin RN Txp Post Coordinator N/A N/A N/A Events Post-Transplant Pre-Transplant Admitted: 10/17/2025 Referred: 08/02/2025 Transplanted: 10/17/2025 Evaluation began: 5 Discharged: 10/22/2025 Committee: 09/11/2025 Center waitlisted: 5 Appointments (09/24/2025 - 11/24/2025) When With Visit Type Description 09/24/2025 Txp James Sinha Established Patient 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
--- OUTSIDE RECORDS SUMMARY | 2025-10-24 07:36 | XMS_ITS | Encounter Summary ---
Author Organization Healthcare Address [address] [place] [address] Care Team Providers Care Compliance Review Specialist Name Role Phone Urban Brantley DO Primary Care Provider [phone] Ruma Hernández ACTIVITIES CONCIERGE Unavailable [phone] Chris Medel MD Primary Care Provider [phone] Encounter Details Date Type Department Care Team (Late st Contact Info) Description 12/30/2023 Orders Only External Location [address] [place] [address] Urban Stafford MD [address] [facility] [place] [facility] [address] [place] [address] Social History [...] [facility], [address] [place] [address] Suhail Brock MD [address] [place] [address] 12/12/2025 8:30 AM EST Clinical Support [facility] Transplant [place] [address] [place] [address] 12/12/2025 10:00 AM EST Office Visit [facility] Transplant [place] [address] [facility] [address] [place] [address] Portia Maguire MD [address] [place] [address] documented as of this encounter [...] of this encounter Care Teams Compliance Review Specialist Relationship Specialty Start Date End Date Urban Brantley DO [address] [place] [address] PCP - General 07/30/23 03/13/25 [place] [address] PCP - General 03/14/25 Ruma Heránndez APRN [address] [place] [address] Referring Physician Gastroenterology 07/30/23 documented as of this encounter
[2025-10-24 08:01] LABS: Hematocrit 27.6 % (42.0-52.0); Hemoglobin 9.6 g/dL (14.1-18.0); Immature Granulocytes % 1.3 %; Mean Corpuscular HGB Conc 34.8 g/dL (31.8-35.4); Mean Corpuscular Hemoglobin 32.7 pg (27.0-31.2); Mean Corpuscular Volume 93.9 fl (80-94); Nucleated Red Blood Cells % 0 %; Red Blood Count 2.94 M/mm3 (4.60-6.20); Red Cell Distribution Width-SD 51.9 fL; White Blood Count 11.7 K/mm3 (4.8-10.8)
[2025-10-24 08:23] LABS: Platelet Count 47 K/mm3 (142-424)
[2025-10-24 10:28] LABS: Alanine Aminotransferase 210 U/L (12-78); Albumin Level 2.3 g/dl (3.5-5.0); Alkaline Phosphatase 149 U/L (38-126); Anion Gap 6.4 mEq/L (5-15); Aspartate Amino Transferase 41 U/L (17-59); Bilirubin,Direct 0.4 mg/dl (0.0-0.4); Bilirubin,Indirect 0.6 mg/dL (0.0-0.9); Bilirubin,Total 1.0 mg/dl (0.2-1.3); Bilirubin,Unconjugated 0.6 mg/dL (0.0-1.1); Blood Urea Nitrogen 16 mg/dl (9-20); Calcium 7.7 mg/dl (8.4-10.2); Carbon Dioxide 28 mmol/L (22.0-30.0); Chloride 105 mmol/L (98-107); Creatinine,Serum 0.90 mg/dl (0.66-1.25); Estimated Glomerular Filt Rate 85 ml/min (>60); GFR (African American) 103 ML/MIN (>60); Glucose 100 mg/dl (74-100); Phosphorous 3.0 mg/dl (2.5-4.5); Potassium 3.4 mmoL/L (3.5-5.1); Sodium 136 mmol/L (136-145); Total Protein,Serum 4.8 g/dl (6.3-8.2)
[2025-10-27 17:16] LABS: Tacrolimus (FK506), Blood 6.4 ng/mL (5.0-20.0)
== END 2025-10-24 23:59 | disposition home or self-care (01) ==
LOC: LAB 07:19
PROVIDERS: PCP Family Medicine; Visit Provider Surgery
DX: D84.9 Immunodeficiency, unspecified (principal); Z94.4 Liver transplant status
CPT/HCPCS: 36415; 80069; 80076; 80197; 85025

== ENCOUNTER 2025-10-29 07:37 | Outpatient (CLI) | payer BC, SELFPAY ==
--- OUTSIDE RECORDS SUMMARY | 2023-08-27 07:34 | XMS_ITS | Encounter Summary ---
[facility] [address] [place] [address] Care Team Providers Care Trust Advisor Name Role Phone Karon Urban Jc DO Primary Care Provider +1 -[phone] Encounter Details Date Type Department Care Team (Late st Contact Info) Description 08/27/2023 8:34 AM EDT Hospital Encounter [facility] PULMONARY & CRITICAL CARE MEDICINE [address] [place] [phone] Social History Tobacco Use Types Packs/Day [...] on filedocumented in this encounter Care Teams Trust Advisor Relationship Specialty Start Date End Date Urban Brantley DO [address] [place] [address] [place] [address] PCP - General Internal Medicine 03/22/23 documented as of this encounter
--- OUTSIDE RECORDS SUMMARY | 2025-09-08 19:31 | XMS_ITS | Encounter Summary ---
Author Organization [facility] Address [address] [place] [address] Care Team Providers Care Aerosol Supervisor Name Role Phone Unknown, Attending Provider Primary [...] release of HIV test results or diagnoses. [id number] Reason for Referral * Imaging/Cardiovascular Scan (Routine) - New Request Specialty Diagnoses / Procedures Referred By Contac t Referred To Contact Radiology Procedures CT Abdomen and or Pelvis Outside Exam System, Provider Not In [address] [address] Referral ID Status Reason Start Date Expiration Date V isits Requested Visits Authorized [id number] New Request 09/08/2025 03/07/2026 1 1 Reason for Visit * Imaging/Cardiovascular Scan (Routine) - New Request Specialty Diagnoses / Procedures Referred By Contac t Referred To Contact Radiology Procedures CT Abdomen and or Pelvis Outside Exam System, Provider Not In [address] [address] Referral ID Status Reason Start Date Expiration Date V isits Requested Visits Authorized [id number] New Request 09/08/2025 03/07/2026 1 1 Encounter Details Date Type Department Care Team (Latest Contact Info) Description 09/08/2025 8:31 PM EDT - 09/08/2025 8:33 PM EDT Hospital Encounter [facility] Radiology [address] [place] [address] System, Provider Not In Discharge Disposition: Home [...] on filedocumented in this encounter Care Teams Aerosol Supervisor Relationship Specialty Start Date End Date Unknown, Attending Provider PCP - General 08/29/2508/16 documented as of this encounter
--- OUTSIDE RECORDS SUMMARY | 2025-09-08 19:31 | XMS_ITS | Encounter Summary ---
Author Organization [facility] Address [address] [place] [address] Care Team Providers Care Eyeglass Assembler Name Role Phone Unknown, Attending Provider Primary [...] release of HIV test results or diagnoses. [id number] Health Encounter Details Date Type Department Care Team (Latest Contact Info) Description 09/08/2025 8:31 PM EDT - 09/08/2025 8:33 PM EDT Hospital Encounter [facility] Radiology [address] [place] [address] System, Provider Not In Discharge Disposition: Home [...] on filedocumented in this encounter Care Teams Eyeglass Assembler Relationship Specialty Start Date End Date Unknown, Attending Provider PCP - General 08/29/2508/16 documented as of this encounter
--- OUTSIDE RECORDS SUMMARY | 2025-09-08 19:34 | XMS_ITS | Encounter Summary ---
Author Organization [facility] Address [address] [place] [address] Care Team Providers Care Retail Loss Prevention Officer Name Role Phone Unknown, Attending Provider Primary [...] release of HIV test results or diagnoses. [id number] Health Encounter Details Date Type Department Care Team (Latest Contact Info) Description 09/08/2025 8:34 PM EDT - 09/08/2025 11:59 PM EDT Hospital Encounter [facility] Radiology [address] [place] [address] System, Provider Not In Discharge Disposition: Home [...] on filedocumented in this encounter Care Teams Retail Loss Prevention Officer Relationship Specialty Start Date End Date Unknown, Attending Provider PCP - General 08/29/2508/16 documented as of this encounter
--- OUTSIDE RECORDS SUMMARY | 2025-09-08 19:34 | XMS_ITS | Encounter Summary ---
Author Organization [facility] Address [address] [place] [address] Care Team Providers Care Tank Farm Gauger Name Role Phone Unknown, Attending Provider Primary [...] release of HIV test results or diagnoses. [id number] Reason for Referral * Imaging/Cardiovascular Scan (Routine) - New Request Specialty Diagnoses / Procedures Referred By Contac t Referred To Contact Radiology Procedures CT Abdomen and or Pelvis Outside Exam System, Provider Not In [address] [address] Referral ID Status Reason Start Date Expiration Date V isits Requested Visits Authorized [id number] New Request 09/08/2025 03/07/2026 1 1 Reason for Visit * Imaging/Cardiovascular Scan (Routine) - New Request Specialty Diagnoses / Procedures Referred By Contac t Referred To Contact Radiology Procedures CT Abdomen and or Pelvis Outside Exam System, Provider Not In [address] [address] Referral ID Status Reason Start Date Expiration Date V isits Requested Visits Authorized [id number] New Request 09/08/2025 03/07/2026 1 1 Encounter Details Date Type Department Care Team (Latest Contact Info) Description 09/08/2025 8:34 PM EDT - 09/08/2025 11:59 PM EDT Hospital Encounter [facility] Radiology [address] [place] [address] System, Provider Not In Discharge Disposition: Home [...] on filedocumented in this encounter Care Teams Tank Farm Gauger Relationship Specialty Start Date End Date Unknown, Attending Provider PCP - General 08/29/2508/16 documented as of this encounter
--- OUTSIDE RECORDS SUMMARY | 2025-09-10 09:03 | XMS_ITS | Encounter Summary ---
Author Organization [facility] Address [address] [place] [address] Care Team Providers Care Infectious Disease Technician Name Role Phone System, Provider Not In [...] release of HIV test results or diagnoses. [id number] Reason for Referral * Imaging/Cardiovascular Scan (Routine) - Closed Specialty Diagnoses / Procedures Referred By Gianna reyes Referred To Contact Radiology Diagnoses Pre-transplant evaluation for chronic liver disease Procedures CT Chest WO contrast [facility] Liver Transplant at [address] [address] Phone: tel: fax: Referral ID Status Reason Start Date Expiration Date Visits Re quested Visits Authorized [id number] Closed 08/13/2025 02/09/2026 1 1 Reason for Visit * Auth/Cert (Routine) Specialty Diagnoses / Procedures Referred By Gianna reyes Referred To Contact Radiology [facility] [address] [place] [address] Phone: tel: Referral ID Status Reason Start Date Expiration Date Visits Re quested Visits Authorized [id number] 1 1 Encounter Details Date Type Department Care Team (Latest Contact Info) Description 09/10/2025 10:03 AM EDT - 09/10/2025 11:59 PM EDT Hospital Encounter [facility] [address] [place] [phone] Nigel Reaves MD [address] [place] [address] Pre-transplant evaluation for chronic liver [...] probably benign/without clinical significance. Approved by Bj lGeason MD on 09/10/2025 11:58 AM EDT I [...] within the right upper lobe with downstream kdrn-eh-ooscmusavhzze within the paramedian right upper lobe apex. [...] documented as of this encounter Care Teams Infectious Disease Technician Relationship Specialty Start Date End Date System, Provider Not In PCP - General 09/10/25 10/24/25 documented as of this encounter
--- OUTSIDE RECORDS SUMMARY | 2025-09-10 11:00 | XMS_ITS | Encounter Summary ---
Author Organization [facility] Address [address] [place] [address] Care Team Providers Care Golf Instructor Name Role Phone System, Provider Not In [...] release of HIV test results or diagnoses. 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 Attending Physician: Stefan Gonzalez MD Date of [...] Resource Strain: Low Risk (06/15/2025) Received from [facility] Overall Financial Resource Strain (CARDIA) How hard is it for you to pay for the very basics like food, housing, medical care, and heating?: Not hard at all Food Insecurity: No Food Insecurity (06/15/2025) Received from [facility] Hunger Vital Sign Worried About Running Out of Food in the Last Year: Never true Ran Out of Food in the Last Year: Never true Transportation Needs: No Transportation Needs (06/15/2025) Received from [facility] PRAPARE - Transportation In the past 12 months, has lack of transportation kept you from medical appointments or from getting medications?: No In the past 12 months, has lack of transportation kept you from meetings, work, or from getting things needed for daily living?: No Physical Activity: Inactive (06/15/2025) Received from [facility] Exercise Vital Sign Days of Exercise per Week: 0 days Minutes of Exercise per Session: 0 min Stress: No Stress Concern Present (06/15/2025) Received from [facility] [place] of Occupational Health - Occupational Stress Questionnaire Do you feel stress - tense, restless, nervous, or anxious, or unable to sleep at night because yourmind is troubled all the time - these days?: Only a little Social Connections: Socially Integrated (06/15/2025) Received from [facility] Social Connection and Isolation Panel [NHANES] Frequency of Communication with Friends and Family: More than three times a week Frequency of Social Gatherings with Friends and Family: More than three times a week Attends Jewish Services: More than 4 times per year Active Member of Clubs or Organizations: Yes Attends Club or Organization Meetings: Not on file Marital Status: Intimate Partner Violence: Not At Risk (06/15/2025) Received from [facility] Humiliation, Afraid, Rape, and Kick questionnaire Fear of Current or Ex-Partner: No Emotionally Abused: No Physically Abused: No Sexually Abused: No Housing Stability: Low Risk (06/15/2025) Received from [facility] Housing Stability Vital Sign Unable to Pay [...] test performed by another physician/other qualified health lawn care specialist (not separately reported) Risk of Complications and/or [...] documented as of this encounter Care Teams Golf Instructor Relationship Specialty Start Date End Date System, Provider Not In PCP - General 09/10/25 10/24/25 documented as of this encounter
--- OUTSIDE RECORDS SUMMARY | 2025-09-10 12:00 | XMS_ITS | Encounter Summary ---
Author Organization [facility] Address [address] [place] [id number] Care Team Providers Care Research Animal Facility Supervisor Name Role Phone System, Provider Not In [...] release of HIV test results or diagnoses. [id number] Reason for Visit * Reason Comments Liver Transplant Evaluation Encounter Details Date Type Department Care Team (Late st Contact Info) Description 09/10/2025 1:00 PM EDT Office Visit [facility] Liver Transplant at [address] [phone] Buddy Zimmerman MD [address] [place] [address] Pre-transplant evaluation for chronic liver disease [...] Hepatology Clinic Note Name: David Pop CSN: [id number] Chief Complaint: Liver Transplant Evaluation History of [...] get MELD labs today Buddy Zimmerman MD [employer] Medicine Division of Gastroenterology and Hepatology [1] [...] LDL Cholesterol 97 mg/dL 8:21 PM EDT [facility] Plasma 09/10/2025 5:03 PM EDT 09/10/2025 5:52 PM EDT Narrative [facility]ALTH [facility] - 09/10/2025 8:21 PM EDT Must the patient be fasting for this test?->No LDL cholesterol calculated using the Friedewald equation. us Buddy Zimmerman MD LAB BLOOD ORDERABLES Final Resul t Performing Organization Address City/[facility] Co de Phone Number [facility] [address] [facility]. [address] * ABO/Rh (09/10/2025 5:03 PM EDT) ABO Grouping A 09/10/2025 7:26 PM EDT [facility] Rh Type Positive 09/10/2025 7:26 PM EDT [facility] Blood 09/10/2025 5:03 PM EDT 09/10/2025 6:49 PM EDT us Buddy Zimmerman MD BLOOD BANK TEST ORDERABLES Final Result Performing Organization Address [facility] de Phone Number [facility] [address] [facility]. [address] * AFP tumor marker (09/10/2025 5:03 PM EDT) AFP-Tumor Marker 2.0 0.0 - 9.0 ng/mL 09/10/2025 8:52 PM EDT [facility] Serum 09/10/2025 5:03 PM EDT 09/10/2025 6:42 PM EDT Narrative [facility] - 09/10/2025 8:52 PM EDT The testing method for AFP is a chemiluminescent immunoassay manufactured by [employer] Concentrations of AFP obtained by different assay methods or kits may vary and cannot be used interchangeably. AFP results cannot be interpreted as absolute evidence of the presence or absence of malignant disease. us Buddy Zimmerman MD LAB BLOOD ORDERABLES Final Resul t [facility] [address] [facility]. [address] * Hemoglobin A1c (09/10/2025 5:03 PM EDT) Pathologist [facility] Hemoglobin A1C 4.0 4.0 - 5.6 % 09/10/2025 11:22 PM EDT [facility] Comment: Hemoglobin A1c Interpretation [...] ORDERABLES Final Resul t Performing Organization Address [facility] Co de Phone Number [facility] [address] [facility]. [address] * TSH (Thyroid Stimulating Hormone) (09/10/2025 5:03 PM EDT) Pathologist [facility] TSH 2.85 0.45 - 4.12 uIU/mL 09/11/2025 12:13 AM EDT [facility] Serum 09/10/2025 5:03 PM EDT 09/10/2025 6:42 PM EDT us Buddy Zimmerman MD LAB BLOOD ORDERABLES Final Resul t Performing Organization Address [facility]/ZIP Co de Phone Number [facility] [address] [facility]. [address] * (ABNORMAL) Protime-INR (09/10/2025 5:03 PM EDT) Pathologist [facility] Protime 24.2(H) 12.1 - 15.1 seconds 09/10/2025 7:00 PM EDT [facility] INR 2.0(H) 0.9 - 1.1 09/10/2025 7:00 PM EDT [facility] Comment: RECOMMENDED THERAPEUTIC RANGES USING INR : Stable oral anticoagulant therapy: 2.0 - 3.0 Mechanical prosthetic heart valve: 2.5 - 3.5 Recurrent acute myocardial infarction: 2.5 - 3.5 Plasma 09/10/2025 5:03 PM EDT 09/10/2025 6:42 PM EDT us Buddy Zimmerman MD LAB BLOOD ORDERABLES Final Resul t [facility] [address] * (ABNORMAL) Hepatic Function Panel (09/10/2025 5:03 PM EDT) Total Bilirubin 5.9(H) 0.0 - 1.5 mg/dL 09/10/2025 8:21 PM EDT [facility] Bilirubin, Direct 1.62(H) 0.00 - 0.40 mg/dL 09/10/2025 8:21 PM EDT [facility] AST 40(H) 13 - 39 U/L 09/10/2025 8:21 PM EDT [facility] ALT 29 7 - 52 U/L 09/10/2025 8:21 PM EDT [facility] Alkaline Phosphatase 136(H) 36 - 125 U/L 09/10/2025 8:21 PM EDT [facility] Total Protein 6.2(L) 6.4 - 8.9 g/dL 09/10/2025 8:21 PM EDT [facility] Albumin 2.1(L) 3.5 - 5.7 g/dL 09/10/2025 8:21 PM EDT [facility] Bilirubin, Indirect 4.28(H) 0.00 - 1.10 mg/dL 09/10/2025 8:21 PM EDT [facility] Plasma 09/10/2025 5:03 PM EDT 09/10/2025 5:52 PM EDT us Buddy Zimmerman MD LAB BLOOD ORDERABLES Final Resul t [facility] [address] [place] [address], [facility] * (ABNORMAL) Basic metabolic panel (09/10/2025 5:03 PM EDT) Sodium 142 133 - 146 mmol/L 09/10/2025 8:21 PM EDT [facility] Potassium 3.8 3.5 - 5.3 mmol/L 09/10/2025 8:21 PM EDT [facility] Chloride 110 98 - 110 mmol/L 09/10/2025 8:21 PM EDT [facility] CO2 27 21 - 33 mmol/L 09/10/2025 8:21 PM EDT [facility] Comment:High lactate dehydro genase concentrations in patient samples may cause falsely increased bicarbonate results. If markedly elevated LDH is observed or suspected, please assess results in conjunction with patient`s clinical presentation. In cases of discrepant results, consider evaluating CO2 in with a blood gas order. Anion Gap 5 3 - 16 mmol/L 09/10/2025 8:21 PM EDT [facility] BUN 10 7 - 25 mg/dL 09/10/2025 8:21 PM EDT [facility] Creatinine 0.90 0.60 - 1.30 mg/dL 09/10/2025 8:21 PM EDT [facility] Glucose 79 70 - 100 mg/dL 09/10/2025 8:21 PM EDT [facility] Calcium 7.9(L) 8.6 - 10.3 mg/dL 09/10/2025 8:21 PM EDT [facility] Osmolality, Calculated 292 278 - 305 mOsm/kg 09/10/2025 8:21 PM EDT [facility] EGFR >90 09/10/2025 8:21 PM EDT [facility] Comment: As of 2022, [...] MD LAB BLOOD ORDERABLES Final Resul t [facility] [address] * (ABNORMAL) CBC (09/10/2025 5:03 PM EDT) WBC 4.2 3.8 - 10.8 10E3/uL 09/10/2025 6:57 PM EDT [facility] RBC 3.39(L) 4.20 - 5.80 10E6/uL 09/10/2025 6:57 PM EDT [facility] Hemoglobin 11.4(L) 13.2 - 17.1 g/dL 09/10/2025 6:57 PM EDT [facility] Hematocrit 33.9(L) 38.5 - 50.0 % 09/10/2025 6:57 PM EDT [facility] MCV 100.1(H) 80.0 - 100.0 fL 09/10/2025 6:57 PM EDT [facility] MCH 33.7(H) 27.0 - 33.0 pg 09/10/2025 6:57 PM EDT [facility] MCHC 33.7 32.0 - 36.0 g/dL 09/10/2025 6:57 PM EDT [facility] RDW 18.5(H) 11.0 - 15.0 % 09/10/2025 6:57 PM EDT [facility] Platelets 66(L) 140 - 400 10E3/uL 09/10/2025 6:57 PM EDT [facility] MPV 7.8 7.5 - 11.5 fL 09/10/2025 6:57 PM EDT [facility] Whole Blood 09/10/2025 5:03 PM EDT 09/10/2025 6:33 PM EDT us Buddy Zimmerman MD LAB BLOOD ORDERABLES Final Resul t [facility] [address] * ECG 12-Lead (MUSE) (09/10/2025 12:14 PM EDT) 09/10/2025 12:1 4 PM EDT Narrative MUSE - 09/10/2025 3:28 PM EDT Ventricular Rate: 64 BPM Atrial Rate: 64 BPM P-R Interval: 190 ms QRS Duration: 84 ms QT: 464 ms QTc: 478 ms P [place]: 27 degrees R [place]es: 58 degrees T [place]lysses: 22 degrees Diagnosis Line: NORMAL SINUS RHYTHM ^ NORMAL ECG ^ No previous ECGs available ^ Confirmed by MD TIP, [facility] ([id number]) on 09/10/2025 3:28:36 PM us [...] as of this encounter Care Teams Research Animal Facility Supervisor Relationship Specialty Start Date End Date System, Provider Not In PCP - General 09/10/25 10/24/25 documented as of this encounter
--- OUTSIDE RECORDS SUMMARY | 2025-09-10 12:30 | XMS_ITS | Encounter Summary ---
Author Organization [facility] Address [address] [place] [address] Care Team Providers Care Breaker Off Name Role Phone System, Provider Not In [...] release of HIV test results or diagnoses. [id number] Health Encounter Details Date Type Department Care Team (Late st Contact Info) Description 09/10/2025 1:30 PM EDT Office Visit [facility] Liver Transplant at [address] [address] [address] Troy MD [facility] [place] [address] Alcoholic cirrhosis of liver with [...] Resource Strain: Low Risk (06/15/2025) Received from [facility] Overall Financial Resource Strain (CARDIA) How hard is it for you to pay for the very basics like food, housing, medical care, and heating?: Not hard at all Food Insecurity: No Food Insecurity (06/15/2025) Received from [facility] Hunger Vital Sign Worried About Running Out of Food in the Last Year: Never true Ran Out of Food in the Last Year: Never true Transportation Needs: No Transportation Needs (06/15/2025) Received from [facility] PRAPARE - Transportation In the past 12 months, has lack of transportation kept you from medical appointments or from getting medications?: No In the past 12 months, has lack of transportation kept you from meetings, work, or from getting things needed for daily living?: No Physical Activity: Inactive (06/15/2025) Received from [facility] Exercise Vital Sign Days of Exercise per Week: 0 days Minutes of Exercise per Session: 0 min Stress: No Stress Concern Present (06/15/2025) Received from [facility] [place] of Occupational Health - Occupational Stress Questionnaire Do you feel stress - tense, restless, nervous, or anxious, or unable to sleep at night because yourmind is troubled all the time - these days?: Only a little Social Connections: Socially Integrated (06/15/2025) Received from [facility] Social Connection and Isolation Panel [NHANES] Frequency of Communication with Friends and Family: More than three times a week Frequency of Social Gatherings with Friends and Family: More than three times a week Attends Catholic Services: More than 4 times per year Active Member of Clubs or Organizations: Yes Attends Club or Organization Meetings: Not on file Marital Status: Intimate Partner Violence: Not At Risk (06/15/2025) Received from [facility] Humiliation, Afraid, Rape, and Kick questionnaire Fear of Current or Ex-Partner: No Emotionally Abused: No Physically Abused: No Sexually Abused: No Housing Stability: Low Risk (06/15/2025) Received from [facility] Housing Stability Vital Sign Unable to [...] further review Use and allocation of SCD, JAILOR, DCD and LDLT allografts discussed in detail. [...] is approved by [facility] as meeting institutional coverage criteria for liver [...] from surgery (5%). I also explained the fpc risks of transplantation and immunosuppression including viral infection and cancer both solid organand lymphoma. --- Lane Troy MD Transplant [employer] Handwell service floor worker Section of Transplantation [facility] [1] Allergies Allergen Reactions Lisinopril Other (See [...] documented as of this encounter Care Teams Breaker Off Relationship Specialty Start Date End Date System, Provider Not In PCP - General 09/10/25 10/24/25 documented as of this encounter
--- OUTSIDE RECORDS SUMMARY | 2025-09-10 13:00 | XMS_ITS | Encounter Summary ---
Author Organization [facility] Address [address] [place] [id number] Care Team Providers Care Human Relations Manager Name Role Phone System, Provider Not [...] release of HIV test results or diagnoses. [id number] Reason for Visit * Reason Comments ID Consult Visit (Follow Up) Liver Transplant Pre-evaluation Encounter Details Date Type Department Care Team (Late st Contact Info) Description 09/10/2025 2:00 PM EDT Office Visit [facility] Liver Transplant at [address] [phone] Unknown, Attending Provider Navi Sims MD [address] [place] [phone] Pre-transplant evaluation for chronic liver disease [...] Disease Pre-Transplant Consultation Patient: David Pop CSN: [id number] Chief Complaint Pre-transplant evaluation, infectious History of Present Illness David Pop is a 65 y.o. 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 Childhood immunizations and illnesses: got all childhood vaccines, still has tonsils, no PE tubes. Unsure if had measles, mumps. Unsure if had VZV. Places of habitation and travel: Born in [place], no SW travel. International to [place] for work, worked for [employer], making [employer]. Lives with , 3 cats, does the cat litter box. No other pets. Hobbies: fish. Discussed hot tub avoidance. No known TB exposure, no homeless, no correction, no ivdu, no healthcare work. Current vaccinations: [...] Resource Strain: Low Risk (06/15/2025) Received from [facility] Overall Financial Resource Strain (CARDIA) How hard is it for you to pay for the very basics like food, housing, medical care, and heating?: Not hard at all Food Insecurity: No Food Insecurity (06/15/2025) Received from [facility] Hunger Vital Sign Worried About Running Out of Food in the Last Year: Never true Ran Out of Food in the Last Year: Never true Transportation Needs: No Transportation Needs (06/15/2025) Received from [facility] PRAPARE - Transportation In the past 12 months, has lack of transportation kept you from medical appointments or from getting medications?: No In the past 12 months, has lack of transportation kept you from meetings, work, or from getting things needed for daily living?: No Physical Activity: Inactive (06/15/2025) Received from [facility] Exercise Vital Sign Days of Exercise per Week: 0 days Minutes of Exercise per Session: 0 min Stress: No Stress Concern Present (06/15/2025) Received from [facility] [place] [facility] [employer]ational [facility] - Occupational Stress Questionnaire Do you feel stress - tense, restless, nervous, or anxious, or unable to sleep at night because yourmind is troubled all the time - these days?: Only a little Social Connections: Socially Integrated (06/15/2025) Received from [facility] Social Connection and Isolation Panel [NHANES] Frequency [...] Violence: Not At Risk (06/15/2025) Received from [facility] Humiliation, Afraid, Rape, and Kick questionnaire Fear of Current or Ex-Partner: No Emotionally Abused: No Physically Abused: No Sexually Abused: No Housing Stability: Low Risk (06/15/2025) Received from [facility] Housing Stability Vital Sign Unable to Pay [...] antibody, IgG (09/10/2025 5:03 PM EDT) Pathologist [facility] Varicella IgG Positive( A) Negative S/CO 09/10/2025 11:49 PM EDT [facility] Comment:Result indicates the presence of detectable VZV IgG antibodies. A positive result is generally indicative of exposure to the pathogen or administration of specific immunoglobulins, but it is no indication of active infection or stage of disease. This test is not approved for determining vaccine-induced immunity to varicella zoster virus. VZV NUM 15.50(H) 0.00 - 0.99 S/CO 09/10/2025 11:49 PM EDT [facility] Serum 09/10/2025 5:03 PM EDT 09/10/2025 10:26 PM EDT Navi Sims MD LAB BLOOD ORDERABLES Final Resu lt Performing Organization Address [facility] [[email or web address]] Co de Phone Number [facility] [address] * QuantiFERON TB2 Ag (09/10/2025 5:03 PM EDT) Pathologist [facility] QuantiFERON TB2 Ag Value 0.09 09/12/2025 1:19 PM EDT [facility] Plasma 09/10/2025 5:03 PM EDT 09/10/2025 6:29 PM EDT Navi Sims MD LAB BLOOD ORDERABLES Final Resu lt Performing Organization Address City/[facility]/ZIP Co de Phone Number [facility] [address] * QuantiFERON TB1 Ag (09/10/2025 5:03 PM EDT) QuantiFERON TB1 Ag Value 0.08 09/12/2025 1:19 PM EDT [facility] Plasma 09/10/2025 5:03 PM EDT 09/10/2025 6:29 PM EDT Navi Sims MD LAB BLOOD ORDERABLES Final Resu lt [facility] [address] [facility]. [address] * QuantiFERON Nil (09/10/2025 5:03 PM EDT) Pathologist [facility] QuantiFERON Nil 0.02 1:19 PM EDT [facility] Plasma 09/10/2025 5:03 PM EDT 09/10/2025 6:29 PM EDT Navi Sims MD LAB BLOOD ORDERABLES Final Resu lt Performing Organization Address City/[facility]/ZIP Co de Phone Number [facility] [address] [facility]. [address] * QuantiFERON Mitogen (09/10/2025 5:03 PM EDT) Pathologist [facility] QuantiFERON Interpretation Negative Negative 09/12/2025 1:19 PM EDT [facility] Comment:Negative result pilar cates M. tuberculosis infection is NOT likely. Negative results do not preclude tuberculosis infection (especially in immunosuppressed patients). Negative results have a TB antigen minus Nil value less than 0.35 IU/mL. In cases with high suspicion of disease, retesting or additional testing with medical evaluation may be useful. QuantiFERON Mitogen 8.77 09/12 1:19 PM EDT [facility] Plasma 09/10/2025 5:03 PM EDT 09/10/2025 6:29 PM EDT Narrative [facility] - 09/12/2025 1:19 PM EDT The [...] ORDERABLES Final Resu lt Performing Organization Address City/[facility]/ZIP Co de Phone Number [facility] [address] [facility]. [address] * (ABNORMAL) Strongyloides Ab (09/10/2025 5:03 PM EDT) Pathologist [facility] Strongyloides Ab Positive( A) Negative 09/17/2025 2:56 PM EST [facility] Serum 09/10/2025 5:03 PM EDT 09/17/2025 3:07 PM EST Narrative [facility] - 09/17/2025 3:07 PM EST PERFORMED AT: [address] [id number] DRESSMAKER GARMENT FITTER: Kevin Holguin MD PHONE: [phone] Navi Sims MD LAB BLOOD ORDERABLES Final Resu lt Performing Organization Address City/[facility] [[email or web address]] Co de Phone Number [facility] [address] [facility]. [address] * Toxoplasma gondii antibody, IgG (09/10/2025 5:03 PM EDT) Pathologist [facility] Toxoplasma Gondii IgG <3.0 0.0 - 7.1 IU/mL 09/12/2025 6:21 AM EDT [facility] Comment: Negative <7.2 Equivocal 7.2 - 8.7 Positive >8.7 Serum 09/10/2025 5:03 PM EDT 09/12/2025 7:06 AM EDT Narrative [facility] - 09/12/2025 7:06 AM EDT PERFORMED AT: [facility] [address] [id number] DRESSMAKER GARMENT FITTER: Mateo Miller, PhD PHONE: [phone] Navi Sims MD LAB BLOOD ORDERABLES Final Resu lt [facility]. [address] * Syphilis Screening (Trepia) (09/10/2025 5:03 PM EDT) Treponema Pallidum Negative Negative 09/10/2025 11:55 PM EDT [facility] Comment: No serological evidence of infection with Treponema pallidum (incubating or early primary syphilis cannot be excluded). Serum 09/10/2025 5:03 PM EDT 09/10/2025 10:26 PM EDT Navi Sims MD LAB BLOOD ORDERABLES Final Resu lt [facility] [address] [facility] [facility]. [address] * (ABNORMAL) MMR(IgG) Panel (Measles, Mumps, Rubella) (09/10/2025 5:03 PM EDT) Mumps IgG Positive 09/10/2025 11:51 PM EDT [facility] MUMPS IGG NUM >300.00(H) 0.0 - 8.9 U/mL 09/10/2025 11:51 PM EDT [facility] Rubella IgG Scr Positive 09/10/2025 11:51 PM EDT [facility] RUB NUM 30.20(H) 0.0 - 0.8 INDEX 09/10/2025 11:51 PM EDT [facility] Rubeola Ab, IgG Positive 09/10/2025 11:50 PM EDT [facility] RUB IGG NUM >300.00(H) 0.00 - 13.40 U/mL 09/10/2025 11:50 PM EDT [facility] Serum 09/10/2025 5:03 PM EDT 09/10/2025 10:26 PM EDT Narrative [facility] - 09/10/2025 11:51 PM EDT Presence [...] MD LAB BLOOD ORDERABLES Final Resu lt [facility] [address] [place] [address], [facility] documented in this encounter Visit Diagnoses Diagnosis [...] documented as of this encounter Care Teams Human Relations Manager Relationship Specialty Start Date End Date System, Provider Not In PCP - General 09/10/25 10/24/25 documented as of this encounter
--- OUTSIDE RECORDS SUMMARY | 2025-09-10 15:35 | XMS_ITS | Encounter Summary ---
Author Organization [facility] Address [address] [place] [id number] Care Team Providers Care Millinery Salesperson Name Role Phone System, Provider Not In [...] release of HIV test results or diagnoses. [id number] Reason for Visit * Auth/Cert (Routine) Specialty Diagnoses / Procedures Referred By Gianna reyes Referred To Contact [facility] [place] [address] [place] [address] Phone: tel: Referral ID Status Reason Start Date Expiration Date Visits Re quested Visits Authorized [id number] 1 1 Encounter Details Date Type Department Care Team (Late st Contact Info) Description 09/10/2025 4:35 PM EDT Specimen [facility] Out[facility] [address] [place] [id number] Buddy Zimmerman MD [address] [place] [address] Alcoholic cirrhosis of liver with [...] - 0.99 S/CO 09/10/2025 11:49 PM EDT [facility] Serum 09/10/2025 5:03 PM EDT 09/10/2025 10:26 PM EDT Navi Sims MD LAB BLOOD ORDERABLES Final Resu lt [facility] [address] [place] [address]. [address] * QuantiFERON TB2 Ag (09/10/2025 5:03 PM EDT) QuantiFERON TB2 Ag Value 0.09 09/12/2025 1:19 PM EDT [facility] Plasma 09/10/2025 5:03 PM EDT 09/10/2025 6:29 PM EDT Navi Sims MD LAB BLOOD ORDERABLES Final Resu lt [facility] [address] [facility]. [address] * QuantiFERON TB1 Ag (09/10/2025 5:03 PM EDT) QuantiFERON TB1 Ag Value 0.08 09/12/2025 1:19 PM EDT [facility] Plasma 09/10/2025 5:03 PM EDT 09/10/2025 6:29 PM EDT Navi Sims MD LAB BLOOD ORDERABLES Final Resu lt [facility] [address] [place] [address]. [address] * QuantiFERON Nil (09/10/2025 5:03 PM EDT) QuantiFERON Nil 0.02 1:19 PM EDT [facility] Plasma 09/10/2025 5:03 PM EDT 09/10/2025 6:29 PM EDT Navi Sims MD LAB BLOOD ORDERABLES Final Resu lt Performing Organization Address [facility]/ZIP Co de Phone Number [facility] [address] [facility]. [address] * QuantiFERON Mitogen (09/10/2025 5:03 PM EDT) Pathologist [facility] [place] QuantiFERON Interpretation Negative Negative 09/12/2025 1:19 PM EDT [facility] Comment:Negative result pilar cates M. tuberculosis infection is NOT likely. Negative results do not preclude tuberculosis infection (especially in immunosuppressed patients). Negative results have a TB antigen minus Nil value less than 0.35 IU/mL. In cases with high suspicion of disease, retesting or additional testing with medical evaluation may be useful. QuantiFERON Mitogen 8.77 09/12 1:19 PM EDT [facility] Plasma 09/10/2025 5:03 PM EDT 09/10/2025 6:29 PM EDT Narrative [facility] - 09/12/2025 1:19 PM EDT The [...] MD LAB BLOOD ORDERABLES Final Resu lt [facility] [address] [place] [address], [facility] * (ABNORMAL) Strongyloides Ab (09/10/2025 5:03 PM EDT) Pathologist [facility] [place] Strongyloides Ab Positive( A) Negative 09/17/2025 2:56 PM EST [facility] Serum 09/10/2025 5:03 PM EDT 09/17/2025 3:07 PM EST Narrative [facility] - 09/17/2025 3:07 PM EST PERFORMED AT: [facility] [address] [id number] INDUSTRIAL ENGINEER: Kevin Holguin MD PHONE: [phone] Navi Sims MD LAB BLOOD ORDERABLES Final Resu lt Performing Organization Address [facility] Co de Phone Number [facility] [address] [facility]. [address] * Toxoplasma gondii antibody, IgG (09/10/2025 5:03 PM EDT) Toxoplasma Gondii IgG <3.0 0.0 - 7.1 IU/mL 09/12/2025 6:21 AM EDT [facility] Comment: Negative <7.2 Equivocal 7.2 - 8.7 Positive >8.7 Serum 09/10/2025 5:03 PM EDT 09/12/2025 7:06 AM EDT Narrative [facility] - 09/12/2025 7:06 AM EDT PERFORMED AT: [facility] [address] [id number] INDUSTRIAL ENGINEER: Mateo Miller, PhD PHONE: [phone] Navi Sims MD LAB BLOOD ORDERABLES Final Resu lt Performing Organization Address City/[facility]/ZIP Co de Phone Number [facility] [address] [facility]. [address] * Syphilis Screening (Trepia) (09/10/2025 5:03 PM EDT) Treponema Pallidum Negative Negative 09/10/2025 11:55 PM EDT [facility] Comment: No serological evidence of infection with Treponema pallidum (incubating or early primary syphilis cannot be excluded). Serum 09/10/2025 5:03 PM EDT 09/10/2025 10:26 PM EDT Navi Sims MD LAB BLOOD ORDERABLES Final Resu lt [facility] [address] [facility] * (ABNORMAL) MMR(IgG) Panel (Measles, Mumps, Rubella) (09/10/2025 5:03 PM EDT) Mumps IgG Positive 09/10/2025 11:51 PM EDT [facility] MUMPS IGG NUM >300.00(H) 0.0 - 8.9 U/mL 09/10/2025 11:51 PM EDT [facility] Rubella IgG Scr Positive 09/10/2025 11:51 PM EDT [facility] RUB NUM 30.20(H) 0.0 - 0.8 INDEX 09/10/2025 11:51 PM EDT [facility] Rubeola Ab, IgG Positive 09/10/2025 11:50 PM EDT [facility] RUB IGG NUM >300.00(H) 0.00 - 13.40 U/mL 09/10/2025 11:50 PM EDT [facility] Serum 09/10/2025 5:03 PM EDT 09/10/2025 10:26 PM EDT Narrative [facility] - 09/10/2025 11:51 PM EDT Presence [...] MD LAB BLOOD ORDERABLES Final Resu lt [facility] [address] [facility] * (ABNORMAL) Lipid Profile (09/10/2025 5:03 [...] - 149 mg/dL 09/10/2025 8:21 PM EDT [facility] HDL 26(L) 60 - 92 mg/dL 09/10/2025 8:21 PM EDT [facility] Comment: LIPID PROFILE INTERPRETATION CHOLESTEROL,TOTAL(mg/dL) DESIRABLE: [...] LDL Cholesterol 97 mg/dL 8:21 PM EDT [facility] Plasma 09/10/2025 5:03 PM EDT 09/10/2025 5:52 PM EDT Narrative [facility] - 09/10/2025 8:21 PM EDT Must the patient be fasting for this test?->No LDL cholesterol calculated using the Friedewald equation. us Buddy Zimmerman MD LAB BLOOD ORDERABLES Final Resul t [facility] [address] * ABO/Rh (09/10/2025 5:03 PM EDT) ABO Grouping A 09/10/2025 7:26 PM EDT [facility] Rh Type Positive 09/10/2025 7:26 PM EDT [facility] Blood 09/10/2025 5:03 PM EDT 09/10/2025 6:49 PM EDT Buddy Zimmerman MD BLOOD BANK TEST ORDERABLES Final Result [facility] [address] * AFP tumor marker (09/10/2025 5:03 PM EDT) Pathologist [facility] [place] AFP-Tumor Marker 2.0 0.0 - 9.0 ng/mL 09/10/2025 8:52 PM EDT [facility] Serum 09/10/2025 5:03 PM EDT 09/10/2025 6:42 PM EDT Narrative [facility] - 09/10/2025 8:52 PM EDT The testing method for AFP is a chemiluminescent immunoassay manufactured by [employer] Concentrations of AFP obtained by different assay methods or kits may vary and cannot be used interchangeably. AFP results cannot be interpreted as absolute evidence of the presence or absence of malignant disease. Buddy Zimmerman MD LAB BLOOD ORDERABLES Final Resul t Performing Organization Address City/[facility] Co de Phone Number [facility] [address] * Hemoglobin A1c (09/10/2025 5:03 PM EDT) Pathologist [facility] [place] Hemoglobin A1C 4.0 4.0 - 5.6 % 09/10/2025 11:22 PM EDT [facility] Comment: Hemoglobin A1c Interpretation Guidelines: Normal: [...] Resul t Performing Organization Address City/[facility] Co de Phone Number [facility] [address] [facility] * TSH (Thyroid Stimulating Hormone) (09/10/2025 5:03 PM EDT) TSH 2.85 0.45 - 4.12 uIU/mL 09/11/2025 12:13 AM EDT [facility] Serum 09/10/2025 5:03 PM EDT 09/10/2025 6:42 PM EDT us Buddy Zimmerman MD LAB BLOOD ORDERABLES Final Resul t Performing Organization Address [facility] Co de Phone Number [facility] [address] [facility] * (ABNORMAL) Protime-INR (09/10/2025 5:03 PM EDT) Protime 24.2(H) 12.1 - 15.1 seconds 09/10/2025 7:00 PM EDT [facility] INR 2.0(H) 0.9 - 1.1 09/10/2025 7:00 PM EDT [facility] Comment: RECOMMENDED THERAPEUTIC RANGES USING INR : Stable oral anticoagulant therapy: 2.0 - 3.0 Mechanical prosthetic heart valve: 2.5 - 3.5 Recurrent acute myocardial infarction: 2.5 - 3.5 Plasma 09/10/2025 5:03 PM EDT 09/10/2025 6:42 PM EDT Result Neto Zimmerman MD LAB BLOOD ORDERABLES Final Resul t Performing Organization Address [facility] Co de Phone Number [facility] [address] [facility] * (ABNORMAL) Hepatic Function Panel (09/10/2025 5:03 PM EDT) Total Bilirubin 5.9(H) 0.0 - 1.5 mg/dL 09/10/2025 8:21 PM EDT [facility] Bilirubin, Direct 1.62(H) 0.00 - 0.40 mg/dL 09/10/2025 8:21 PM EDT [facility] AST 40(H) 13 - 39 U/L 09/10/2025 8:21 PM EDT [facility] ALT 29 7 - 52 U/L 09/10/2025 8:21 PM EDT [facility] Alkaline Phosphatase 136(H) 36 - 125 U/L 09/10/2025 8:21 PM EDT [facility] Total Protein 6.2(L) 6.4 - 8.9 g/dL 09/10/2025 8:21 PM EDT [facility] Albumin 2.1(L) 3.5 - 5.7 g/dL 09/10/2025 8:21 PM EDT [facility] Bilirubin, Indirect 4.28(H) 0.00 - 1.10 mg/dL 09/10/2025 8:21 PM EDT [facility] Plasma 09/10/2025 5:03 PM EDT 09/10/2025 5:52 PM EDT us Buddy Zimmerman MD LAB BLOOD ORDERABLES Final Resul t [facility] [address] * (ABNORMAL) Basic metabolic panel (09/10/2025 5:03 PM EDT) Sodium 142 133 - 146 mmol/L 09/10/2025 8:21 PM EDT [facility] Potassium 3.8 3.5 - 5.3 mmol/L 09/10/2025 8:21 PM EDT [facility] Chloride 110 98 - 110 mmol/L 09/10/2025 8:21 PM EDT [facility] CO2 27 21 - 33 mmol/L 09/10/2025 8:21 PM EDT [facility] Comment:High lactate dehydro genase concentrations in patient samples may cause falsely increased bicarbonate results. If markedly elevated LDH is observed or suspected, please assess results in conjunction with patient`s clinical presentation. In cases of discrepant results, consider evaluating CO2 in with a blood gas order. Anion Gap 5 3 - 16 mmol/L 09/10/2025 8:21 PM EDT [facility] BUN 10 7 - 25 mg/dL 09/10/2025 8:21 PM EDT [facility] Creatinine 0.90 0.60 - 1.30 mg/dL 09/10/2025 8:21 PM EDT [facility] Glucose 79 70 - 100 mg/dL 09/10/2025 8:21 PM EDT [facility] Calcium 7.9(L) 8.6 - 10.3 mg/dL 09/10/2025 8:21 PM EDT [facility] Osmolality, Calculated 292 278 - 305 mOsm/kg 09/10/2025 8:21 PM EDT [facility] EGFR >90 09/10/2025 8:21 PM EDT [facility] Comment: As of 2022, the estimated [...] MD LAB BLOOD ORDERABLES Final Resul t [facility] [address] * (ABNORMAL) CBC (09/10/2025 5:03 PM EDT) WBC 4.2 3.8 - 10.8 10E3/uL 09/10/2025 6:57 PM EDT [facility] RBC 3.39(L) 4.20 - 5.80 10E6/uL 09/10/2025 6:57 PM EDT [facility] Hemoglobin 11.4(L) 13.2 - 17.1 g/dL 09/10/2025 6:57 PM EDT [facility] Hematocrit 33.9(L) 38.5 - 50.0 % 09/10/2025 6:57 PM EDT [facility] MCV 100.1(H) 80.0 - 100.0 fL 09/10/2025 6:57 PM EDT [facility] MCH 33.7(H) 27.0 - 33.0 pg 09/10/2025 6:57 PM EDT [facility] MCHC 33.7 32.0 - 36.0 g/dL 09/10/2025 6:57 PM EDT [facility] RDW 18.5(H) 11.0 - 15.0 % 09/10/2025 6:57 PM EDT [facility] Platelets 66(L) 140 - 400 10E3/uL 09/10/2025 6:57 PM EDT [facility] MPV 7.8 7.5 - 11.5 fL 09/10/2025 6:57 PM EDT [facility] Whole Blood 09/10/2025 5:03 PM EDT 09/10/2025 6:33 PM EDT us Buddy Zimmerman MD LAB BLOOD ORDERABLES Final Resul t [facility] [address] [facility] documented in this encounter Visit Diagnoses Diagnosis Alcoholic cirrhosis of liver with ascites (CMS-HCC) Pre-transplant evaluation for chronic liver disease documented in this encounter Additional Health Concerns Assessment Noted Time PHQ-9 Depression Total Score: 8 09/10/20 11:09 AM EDT documented as of this encounter Care Teams Millinery Salesperson Relationship Specialty Start Date End Date System, Provider Not In PCP - General 09/10/25 10/24/25 documented as of this encounter
--- OUTSIDE RECORDS SUMMARY | 2025-09-12 07:47 | XMS_ITS | Encounter Summary ---
Author Organization Healthcare Address [address] [place] [address] Care Team Providers Care Patient Advocate Name Role Phone Ruma Hernández MONITORING MANAGER Unavailable [phone] Chris Medel MD Primary Care Provider [phone] Reason for Referral * Imaging (Routine) - Closed Specialty Diagnoses / Procedures Referred By Gianna reyes Referred To Contact Radiology Diagnoses Pre-liver transplant, listed Procedures MR Abdomen w and wo IV Contrast Portia Maguire MD [address] [address] Phone: tel: fax: Referral ID Status Reason Start Date Expiration Date Visits Re quested Visits Authorized [id number] Closed 09/05/2025 03/07/2027 1 1 Reason for Visit * Imaging (Routine) - Closed Specialty Diagnoses / Procedures Referred By Gianna reyes Referred To Contact Radiology Diagnoses Pre-liver transplant, listed Procedures MR Abdomen w and wo IV Contrast Portia Maguire MD [address] [address] Phone: tel: fax: Referral ID Status Reason Start Date Expiration Date Visits Re quested Visits Authorized [id number] Closed 09/05/2025 03/07/2027 1 1 Encounter Details Date Type Department Care Team (Latest Contact Info) Description 09/12/2025 8:47 AM EDT - 09/12/2025 11:59 PM EDT Hospital Encounter [facility] Radiology [address] [place] [address] Pre-liver transplant, listed Discharge Disposition: [...] do you attend [facility] or yazidi services? More than 4 times [...] drink first t luisa in the morning (EYE-MARKETING RESEARCH INTERN) to steady your nerves or to [...] 11 09/13/2024 ergocalciferol (Vitamin D-2) 1.25 MG (41005 UT) capsule Take 1 capsule by mouth [...] [facility], [address] [place] [address] Suhail Brock MD [address] [place] [address] documented as of this encounter [...] are consistent with and integrated into the [place] Association for the Study of Liver Diseases [...] using the following sequences: coronal single shot [id number] fast spin echo, axial T2 weighted sequences [...] are consistent with and integrated into the [place] Associationfor the Study of Liver Diseases (AASLD) [...] as of this encounter Care Teams Patient Advocate Relationship Specialty [place] [id number] PCP - General 03/14/25 Ruma Hernández APRN [address] [facility] [address] [place] [address] Referring Physician Gastroenterology 07/30/23 documented as of this encounter
--- OUTSIDE RECORDS SUMMARY | 2025-09-12 09:00 | XMS_ITS | Encounter Summary ---
Author Organization Healthcare Address [address] [place] [address] Care Team Providers Care Supervisor Industrial Garment Name Role Phone Ruma Hernández GEAR SHAPER Unavailable [phone] Chris Medel MD Primary Care Provider [phone] Encounter Details Date Type Department Care Team (Latest Contact Info) Description 09/12/2025 10:00 AM EDT Office Visit [facility] [address] [facility] [address] [place] [address] Portia Maguire MD [address] [place] [address] Pre-liver transplant, listed (Primary Dx); [...] you attend [facility] or anglican services? More than 4 times per year 02/19/2025 Do you belong to any clubs o r organizations such as episcopal groups, [employer], [employer] or athleHomeWellness groups, or school groups? Yes 02/19/2025 How [...] you attend [facility] or anglican services? More than 4 times per year 06/15/2025 Do you belong to any clubs o r organizations such as episcopal groups, [employer], [employer] or athleHomeWellness groups, or school groups? Yes 06/15/2025 Attends [...] hard at all 06/15/2025 [facility] [place] of Occupat ional Health - Occupational Stress [...] drink first t luisa in the morning (EYE-ELECTRICIANS TOP HELPER) to steady your nerves or to get rid of a hangover? 0 06/14/2025 CAGE Questionnaire Score 0 025 Utilities Answer Date Recorded In the past 12 months has th [employer], gas, oil, or water company threatened to [...] Office Building Urology [address] [facility], [address] [place] [address] Suhail Brock MD [address] [facility] [address] [place] [address] documented as of this encounter [...] as of this encounter Care Teams Supervisor Industrial Garment Relationship Specialty [place] [address] PCP - General 03/14/25 Ruma Hernández APRN [address] [place] [address] Referring Physician Gastroenterology 07/30/23 documented as of this encounter
--- OUTSIDE RECORDS SUMMARY | 2025-09-24 13:00 | XMS_ITS | Encounter Summary ---
Author Organization [facility] Address [address] [place] [id number] Care Team Providers Care Potato Peeling Machine Operator Name Role Phone System, Provider [...] release of HIV test results or diagnoses. [id number] Reason for Visit * Reason Comments Liver Transplant Evaluation Encounter Details Date Type Department Care Team (Late st Contact Info) Description 09/24/2025 1:00 PM EST Office Visit [facility] Liver Transplant at [address] [phone] Nigel Reaves MD [address] [place] [phone] Esophageal varices without bleeding, unspecified esophageal [...] center. He also has dual listing at [facility]. Liver disease diagnosed in 2022 based [...] today - Follow up 3 months Nigel Reavse MD [1] Allergies Allergen Reactions Lisinopril Other (See Comments) documented in this encounter Plan of Treatment Not on file documented as of this encounter Results * Urine culture (09/24/2025 2:11 PM EST) Culture Result No Growth [facility] Midstream Urine URINE SPECIMEN / Unknown 09/24/2025 2:11 PM EST 09/24/2025 3:25 PM EST us Nigel Reaves MD MICROBIOLOGY - GENERAL ORDERABLE S Final Result [facility] [address] [place] [address], [facility] * (ABNORMAL) Urinalysis w/Rfl to Microscopic (09/24/2025 2:11 PM EST) Color, UA Yellow Yellow,Straw 09/24/2025 3:25 PM EST [facility] Clarity, UA Cloudy(A) Clear 09/24/2025 3:25 PM EST [facility] Specific [place], UA 1.019 1.005 - 1.035 09/24/2025 3:25 PM EST [facility] pH, UA 6.0 5.0 - 8.0 09/24/2025 3:25 PM EST [facility] Protein, UA 30(A) Negative mg/dL 09/24/2025 3:25 PM EST [facility] Glucose, UA Negative Negative mg/dL 09/24/2025 3:25 PM EST [facility] Ketones, UA Negative Negative mg/dL 09/24/2025 3:25 PM EST [facility] Bilirubin, UA Negative Negative 09/24/2025 3:25 PM EST [facility] Blood, UA Large(A) Negative 09/24/2025 3:25 PM EST [facility] Nitrite, UA Negative Negative 09/24/2025 3:25 PM [facility] Urobilinogen, UA <2.0 0.2 - 1.9 mg/dL 09/24/2025 3:25 PM EST [facility] Leukocyte Esterase, UA Large(A) Negative 09/24/2025 3:25 PM [facility] RBC, UA 61(H) 0 - 3 /HPF 09/24/2025 3:25 PM EST [facility] WBC, UA >100(H) 0 - 5 /HPF 09/24/2025 3:25 PM EST [facility] Squam Epithel, UA 1 0 - 5 /HPF 09/24/2025 3:25 PM EST [facility] Bacteria, UA Rare(A) None Seen /HPF 09/24/2025 3:25 PM EST [facility] Mucus, UA Present(A) None Seen /HPF 09/24/2025 3:25 PM EST [facility] Urine 09/24/2025 2:11 PM EST 09/24/2025 2:51 PM EST Nigel Reaves MD URINE ORDERABLES Final Result [facility] [address] [place] [address], [facility] documented in this encounter Visit [...] documented as of this encounter Care Teams Potato Peeling Machine Operator Relationship Specialty Start Date End Date System, Provider Not In PCP - General 09/10/25 10/24/25 documented as of this encounter
--- OUTSIDE RECORDS SUMMARY | 2025-10-17 08:52 | XMS_ITS | Encounter Summary ---
Author Organization [facility] Address [address] [place] [id number] Care Team Providers Care Satellite Technician Name Role Phone System, Provider Not [...] release of HIV test results or diagnoses. [id number] Health Reason for Visit * Auth/Cert (Routine) Specialty Diagnoses / Procedures Referred By Gianna t Referred To Contact Diagnoses TRANSPLANT LIVER Procedures TRANSPLANT LIVER [facility] PERIOP [address] [place] [address] Phone: tel: Referral ID Status Reason Start Date Expiration Date Visits Re quested Visits Authorized [id number] 1 1 Encounter Details Date Type Department Care Team (Latest Contact Info) Description 10/17/2025 8:52 AM EST - 10/22/2025 4:06 PM EST Hospital Encounter [facility] SICU [address] [place] [address] Vani Winkler MD [facility] Liver/[place] [id number] S/P liver transplant (CMS-HCC) (Primary Dx); End [...] living in a mcfp (including now)? No 10/17/2025 Utilities Answer Date [...] Zimmerman RN - 10/22/2025 12:26 PM EST [facility] Care Management Discharge Summary Patient name: David Serrano Patient : 1960 Age: 65 y.o. Gender: male Patient emergency contact: Extended Emergency Contact Information Primary Emergency Contact: Stacy Serrano Address: [address] [place] [address] Mobile Relation: Spouse Attending provider: Vani Winkler MD Primary care physician: PROVIDER NOT IN SYSTEM The MD has indicated that the patient is ready for discharge. David Serrano was referred and accepted at [facility] ([phone]) for PT/OT and SN (lab draws) . [...] Services at Home post discharge: [facility] Name/Phone # post discharge: [facility] ([phone]) Home Health Services Types at Discharge: PT/OT/RADIOLOGY RESIDENT, Shelter (mcfp for lab draws.) Citlaly Zimmerman RN/CM [phone] documented in this encounter Discharge Instructions * [...] up appointments. Diet: Regular diet Drain/Dressing/Wound Care: [place] will be removed in clinic approximately 3-4 [...] kept under 2 gm/day. Please discuss withyour health care coordinator if you have any question about appropriate dose to take. Other Instructions: Call post-liver transplant clinic with questions [phone] or call [facility] at [phone] and ask for the liver sustainability project coordinator cycle consultant if you experience any of the following: [...] Date and time as instructed by your sustainability project coordinator in liver transplant clinic in [facility], 3rd floor or Video Visit. PLEASE GET [...] tablet 2 10/22/2025 3:31 PM EST 10/18/2025 furosemide (LASIX) 40 MG tablet Take 1 [...] 7 tablet 10/22/2025 3:31 PM EST 10/22/2025 predniSONE [...] 9 tablet 10/22/2025 3:31 PM EST 10/22/2025 documented as of this encounter Progress Notes [...] Immunosuppression schedule as per Education Note by sustainability project coordinator earlier this admission. Reviewed discharge [...] in clinic? (If significant deficits, communicate with sustainability project coordinator): Standard continual education Future medications [...] Refills: 0 Associated Diagnoses: S/P liver transplant ([facility]) predniSONE (DELTASONE) 5 MG tablet Take 6 [...] Cori Womack PharmD Solid Organ Transplant Clinical Commodity Manager Contact via Buzzoo * Cori Womack PharmD - 10/22/2025 4:06 [...] Cori Womack PharmD Solid Organ Transplant Clinical Commodity Manager Contact via Buzzoo * Jen Mckeon PT - 10/22/2025 12:10 PM EST Physical Therapy Treatment Name: David Serrano : 1960 Attending Physician: Vani Winkler MD Admission Diagnosis: TRANSPLANT LIVER Date: 10/22/2025 Room: [place] [address] [address] Reviewed Pertinent hospital course: Yes Hospital Course [...] Long-term goal to be met by: 11/02/25 Warp Yarn Sorter Goal : =STG Patient/Family Education Educated patient [...] TRANSPLANT LIVER; Surgeon: Vani Winkler MD; Location: [facility]; Service: Transplant; Laterality: N/A; [1] Patient [...] the Caprini Risk Score of 10 and [facility] transplant protocol, I recommend discharging on heparin 5,000 units subcutaneously q8h (facility) or Eliquis 2.5 mg PO BID (home) for 30 days total. Endof chemoprophylaxis: 11/17/25. 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 to be met in: 2 weeks [...] TRANSPLANT LIVER; Surgeon: Vani Winkler MD; Location: [facility]; Service: Transplant; Laterality: N/A; [1] Patient [...] Admission Diagnosis: TRANSPLANT LIVER Date: 10/19/2025 Room: [place] [address] [address] Reviewed Pertinent hospital course: Yes Hospital Course [...] all the time Cognition Overall Cognitive Status: [facility] Cognitive Assessment: Orientation Level;Arousal/ Alertness;Behavior;Following Commands;Safety Judgment;Insight [...] Long-term goal to be met by: 11/02/25 Alf Goal : =STG Patient/Family Education Educated patient [...] TRANSPLANT LIVER; Surgeon: Vani Winkler MD; Location: [facility]; Service: Transplant; Laterality: N/A; [1] Patient Active Problem List Diagnosis Alcoholic cirrhosis (CMS-HCC) Ascites Hepatic encephalopathy (CMS-HCC) Esophageal varices (CMS-HCC) Pre-transplant evaluation for chronic liver disease Encounter for pre-transplant evaluation for liver transplant * Leticia Lomeli MD - 10/18/2025 12:58 PM EST Transplant Surgery Progress Note Name: David Serrano CSN: [id number] Date: 10/18/2025 12:58 PM OR Date: 10/17/2025 [...] 0659 10/18/25 07 - 10/19/25 0659 Shift 2452-1453 3702-8552 8505-4253 24 Hour Total 8603-4171 1704-1127 9597-2790 24 Hour Total INTAKE I.V.(mL/kg) 8000(80.2) 394.1(3.9) [...] 30 60 30 30 IV Piggyback 120 979 277 7403 62.6 62.6 Volume (mL) (methylPREDNISolone sodium succinate (SOLU-medrol) 500 mg in sodium chloride 0.9 % 100 mL IVPB) 100 100 Volume (mL) (AMPicillin 2 g in sodium chloride 0.9% 100 mL IVPB (Wvrv1Btr)) 100 200 300 Volume (mL) (albumin human bottle 5%) 500 500 Volume (mL) (albumin human bottle 25%) 50 50 Volume (mL) (AMPicillin 1 g in sodium chloride 0.9% 100 mL IVPB (Tvhl0Ino)) 97.4 97.4 Volume (mL) (mycophenolate (CELLCEPT) 500 [...] IV Push) 20 20 Shift Total(mL/kg) 120(1.2) 42192(138.6) 1105.1(11.1) 24295.1(150.9) 143.4(1.4) 143.4(1.4) OUTPUT Urine(mL/kg/hr) 1850(2.3) 1000(1.3) 2850(1.2) [...] 2 Abdomen Inferior;Lateral;Left) 100 300 400 Blood 32564 39107 Est Blood Loss 74958 30193 Shift Total(mL/kg) 79501(130.5) 1550(15.5) 32203(146.1) 355(3.6) 355(3.6) Weight (kg) 99.8 99.8 99.8 [...] EXAM: US ABDOMEN LIMITED EXAM: US DUPLEX GZF-BQEFXA-MOMJEFE COMPLETE INDICATION: Post-op liver transplant Day 1 [...] at 10/18/2025 9:53 AM EST US Duplex Wnf-Erg-Rrmzjbs Comp Result Date: 10/18/2025 EXAM: US ABDOMEN LIMITED EXAM: US DUPLEX HEA-VVEEDH-OPPARRJ COMPLETE INDICATION: Post-op liver transplant Day 1 [...] below level of diaphragms and outside the oeqza-yq-njyd. Right internal jugular approach pulmonary artery catheter [...] Dispo: SICU LETICIA LOMELI MD Transplant Surgery [facility] Surgery Resident Cosigned by Vani Winkler MD [...] Cori Womack PharmD Solid Organ Transplant Clinical Commodity Manager Contact via [email or web address].eu Secure Chat * Karen Washington, DIESEL PLANT OPERATOR - 10/18/2025 5:32 AM EST SBT started at 0435 completed at 0520 Patient on +5 and 40% RR: 7-12 Vt: 679-940 RSBI: 10-12 AB.34/48/84/25 Patient placed on Delta 5 post SBT documented in this encounter H&P Notes * Aspen Parr MD - 10/17/2025 10:27 AM EST Transplant Surgery History and Physical Patient: David Serrano CSN: [id number] History CC: ESLD HPI: David Serrano is [...] Resource Strain: Low Risk (06/15/2025) Received from [facility] Overall Financial Resource Strain (CARDIA) How hard is it for you to pay for the very basics like food, housing, medical care, and heating?: Not hard at all Food Insecurity: No Food Insecurity (06/15/2025) Received from [facility] Hunger Vital Sign Within the past 12 months, you worried that your food would run out before you got the money to buymore.: Never true Within the past 12 months, the food you bought just didn't last and you didn't have money to get more.: Never true Transportation Needs: No Transportation Needs (06/15/2025) Received from [facility] PRAPARE - Transportation In the past 12 months, has lack of transportation kept you from medical appointments or from getting medications?: No In the past 12 months, has lack of transportation kept you from meetings, work, or from getting things needed for daily living?: No Physical Activity: Inactive (06/15/2025) Received from [facility] Exercise Vital Sign On average, how many days per week do you engage in moderate to strenuous exercise (like a brisk walk)?: 0 days On average, how many minutes do you engage in exercise at this level?: 0 min Stress: No Stress Concern Present (06/15/2025) Received from [facility] Citizen Of [place] of Occupational Health - Occupational Stress Questionnaire Do you feel stress - tense, restless, nervous, or anxious, or unable to sleep at night because yourmind is troubled all the time - these days?: Only a little Social Connections: Socially Integrated (06/15/2025) Received from [facility] Social Connection and Isolation Panel In a typical week, how many times do you talk on the phone with family, friends, or neighbors?: More than three times a week How often do you get together with friends or relatives?: More than three times a week How often do you attend orthodox or evangelical services?: More than 4 times per year Do you belong to any clubs or organizations such as orthodox groups, unions, fraternal [...] Housing Stability: Low Risk (06/15/2025) Received from [facility] Housing Stability Vital Sign In the last 12 months, was there a time when you were not able to pay the mortgage or rent on time?: No In the past 12 months, how many times have you moved where you were living?: 0 At any time in the past 12 months, were you homeless or living in a mcfp (including now)?: No FH: No family history [...] admitted to SICU post-op. ASPEN PARR MD [facility] General Surgery Liver Transplant Pager: [phone] 10:28 AM 10/17/2025 Cosigned by Vani [...] Name: David Serrano Date: 1960 Billing #: [id number] Date of Procedure: 10/17/2025 Diagnosis: Chronic Hepatic [...] branch patch. Ligation of left renal vein. Zsbq-lu-hlas anastomosis performed without stent. Portal Flow Modulation [...] donor was ABO O and UNOS ID [id number], [place] [id number]. This was a 56 yearold brain donor [...] of available help, Dr. Nugent served as doctor assistant surgeon. Procedure: Back bench preparation of [...] After completion of the outflow anastomosis, a Panamanian clamp was placed across the donor suprahepatic [...] no further bleeding, we then performed a yvgk-nv-fyyo anastomosis. There was no stent placed. This [...] Name: David Serrano Date: 1960 Billing #: [id number] Date of Procedure: 10/17/2025 Diagnosis: Chronic Hepatic Failure without coma Procedure: 1. Back Bench Preparation Donor Liver Attending surgeons: Felice Nugent III, MD [place] Upholsterer Surgeon(s): Morena Haley MD Indications for Procedure: This is a 65 y.o.-year-old male who has alcohol and A1AT liver disease and chronic liver failure complicated by ascites and HE with a MELD score of 20. A donor organ became available. This donor was ABO O and UNOS ID [id number], [place] [id number]. This was a 56 yearold brain donor [...] MD Giulia Bencini, MD Anesthesia: General Staff: Surveyor'S Assistant: Mita Hernandez RN; Aspen Coleman RN Relief Surveyor'S Assistant: Claritza Mckinnon, SILVIO; Jonatan De La O, RN; Clair Sanders RN Scrub Person: Samson Mcbride RN Fellow: Chelsie Haley MD Float: Nadia Woodruff RN; Jyotsna Singleton RN; Farzana Hamilton; Lizz Cota RN Resident: Aspen Parr MD Estimated Blood Loss: 11 L Specimens: Kenaitze liver and gallbladder Left liver core needle biopsy Right liver core needle biopsy Peritoneal fluid for culture Drains: Drain 1 Abdomen Inferior;Lateral;Right (Active) Number of days: 0 Drain 2 Abdomen Inferior;Lateral;Left (Active) Number of days: 0 IUC (Iniguez) 16 Fr. (Active) Number of days: 0 Transplant-Specific Information UNOS ID: [id number] Cross-clamp: 10/17/25 1250 Out of ice: 10/17/25 [...] 1:42 PM ESTAssociated Order(s): IP CONSULT TO RAW STOCK DYEING MACHINE TENDER [facility] Transplant Discharge Education Note [...] 4 - Demonstrates understanding/competency Naomy Gomes RN, MSN,[facility] Diabetes Education Office [phone] Schedule: M-F 8:00am-4:30pm * Oskar Arango RD [...] Gelatein Plus- clear thickened, gelatin high protein ([facility] and [facility] only) PO Meal Intake: Pt currently not taking any PO Appetite: [place] Estimated Nutrition Needs This Admission: No Feeding: Able to feed self Estimated Nutrition Needs (needs based on DBW of 70.4 kg) Kcals/day: 2289-5893 (25-30 kcal/kg) Protein g/day: 105-140 (1.5-2.0 g/kg) [...] TRANSPLANT LIVER; Surgeon: Vani Winkler MD; Location: [facility]; Service: Transplant; Laterality: N/A; Scheduled Meds: [...] Dietitian - Solid Organ Transplant Contact via Tech.eu Chat [1] Allergies Allergen Reactions Lisinopril Other (See Comments) * Citlaly Zimmerman RN - 10/19/2025 1:50 PM EST HEALTH Care Management/Social Work Assessment Patient Information Patient Name: David Serrano Hospital Day: 2 Inpatient/Observation: Inpatient Admit Date: 10/17/2025 Admission Diagnosis: TRANSPLANT LIVER Attending provider: Vani Winkler MD PCP: PROVIDER NOT IN SYSTEM Home Pharmacy: [facility] - [place], [place] - [address] [address] [facility] [address] [place] [address] [facility] [address] [facility] [address] [facility] [address] [facility] [address] [facility] [address] [facility] [address] Pertinent Medications Anticoagulation therapy: Yes Anticoagulant (Name [...] children and their names: Stanley- Lan Serrano ([phone]) and Gloria Banegas ([phone]) Relative Search Completed: Yes Demographics Correct:: Yes [...] No Status & Connection to VA Services [place] Status & Connection to VA Services Are you a ?: No Support Systems Emergency contact: Extended Emergency Contact Information Primary Emergency Contact: KieshaStacy natarajan Address: [address] [place] [address] Mobile Relation: Spouse Support Systems Legal Status: HCPOA Name of Guardian/POA/ Payee and Phone Number: Stacy Serrano ([phone]) Primary Caregiver: Self, Spouse Caregiver name/phone number: Stacy Serrano ([phone]) Times of available support: Total 24/7 hands on (add comment) (Daughter and Friend willing to assist in pt post op care.) Marital Status: Number of children and their names: Stanley- Lan Serrano ([phone]) and Gloria Banegas ([phone]) Relative Search Completed: Yes Demographics Correct:: Yes [...] living with spouse in a home in [place], [place]. Pt reports ~2 steps into residence and 0 inside residence. Pt reports having 2 children- Lan Serrano ([phone]) and Gloria Banegas ([phone]). Pt denies any concerns for safety or [...] Stacy Kiesha. LNOK and HCPOA: Stacy Roach ([phone]) PCP: Myles Toaddine Transportation: family Advance Directives (For Healthcare) Advance Directive: Patient has advance directive, copy in chart Type of Healthcare Directive: Durable power of litigation attorney for health care Healthcare Agent Appointed: Yes Healthcare Agent's Name: Stacy Serrano Healthcare Agent's Pre-existing DNR/DNI Order: No Patient Requests Assistance: No Discharge Plan Met with patient to initiate discussion regarding discharge planning. Introduced self and role of case management/social work and provided contact information. Anticipated Discharge Plan: Home with [facility] Anticipated Discharge Date: 10/22/2025 Anticipated Transportation: [...] 550 mg BID 24 hour events: - [place] removed, introducer remains - Extubated to PR, [...] TRANSPLANT LIVER; Surgeon: Vani Winkler MD; Location: [facility]; Service: Transplant; Laterality: N/A; Home Medications [...] glucose >349 mg/dL = 12 units lancets [facility] Use to test blood sugar four [...] ratio: No PaO2 result within 12 hours. [place] body weight: [place] body weight: 63.8 kg (140 lb 10.5 [...] in sodium chloride 0.9% 100 mL IVPB (Vigp0Dht) 1 g Every 6 hours 10/17/2025 10/19/2025 Admin Instructions: Dosage may need to be adjusted for renal dysfunction. Full dose is 1g IV q6h Use Vgtl3Gfz Adapter - Mix Thoroughly Before Administration Notes to Pharmacy: On ordering machine operator estimated creatinine clearance is 101.9 mL/min (based [...] Best Verbal Response: 5,Best Motor Response: 6 [place] Coma Scale Score: 15 No data found. [...] iniguez PT/OT: pending. PT Recs: OT Recs: RADIOLOGY RESIDENT Recs: Dispo: Remain in SICU EVELYN GALINDO [...] Pre-op MELD 20. Intra-operative course notable for olfjyfpoiz3H ascites. EBL 11L, received 03/19//, 2.4L cell-saver, [...] SATURATION ARTERIAL 97 100 PF ratio: 210 [place] body weight: [place] body weight: 63.8 kg (140 lb 10.5 [...] 10/18/2025 0700 Gross per 24 hour Intake 68786.44 ml Output 71645 ml Net 472.44 ml IVF: acetylcysteine (ACETADOTE) [...] in sodium chloride 0.9% 100 mL IVPB (Pqps7Pss) 1 g Every 6 hours 10/17/2025 10/19/2025 Admin Instructions: Dosage may need to be adjusted for renal dysfunction. Full dose is 1g IV q6h Use Qybj3Ygs Adapter - Mix Thoroughly Before Administration Notes to Pharmacy: On ordering machine operator estimated creatinine clearance is 101.9 mL/min (based on SCr of 0.81 mg/dL). Route: Intravenous Linked Group 1: Placed in And Linked Group AMPicillin 2 g in sodium chloride 0.9% 100 mL IVPB (Rmej6Sdv) (Completed) 2 g Once 10/17/2025 10/17/2025 Admin Instructions: Begin infusion 20-60 minutes prior to incision Use Bhhe9Jjj Adapter - Mix Thoroughly Before Administration Notes to Pharmacy: On ordering machine operator estimated creatinine clearance is 98.3 mL/min (based [...] Best Verbal Response: 1,Best Motor Response: 6 [place] Coma Scale Score: 10 No data found. [...] 1 PT/OT: pending. PT Recs: OT Recs: RADIOLOGY RESIDENT Recs: Dispo: Remain in SICU. DUARTE EL [...] Pre-op MELD 20. Intra-operative course notable for ksykbbxweg5O ascites. EBL 11L, received ///, 2.4L cell-saver, [...] 10/18/2025 0758 Gross per 24 hour Intake 13260.34 ml Output 33056 ml Net 484.34 ml SKIN/MUSCULOSKELETAL: No acute [...] based on DBW of 70.4 kg) Kcals/day: 2438-1408 (25-30 kcal/kg) Protein g/day: 105-140 (1.5-2.0 g/kg) [...] Dietitian - Solid Organ Transplant Contact via Tech.eu Chat [1] Allergies Allergen Reactions Lisinopril Other [...] O2 SATURATION ARTERIAL 100 PF ratio: 270 Wish[place] body weight: [place] body weight: 63.8 kg (140 lb 10.5 [...] 10/17/2025 2300 Gross per 24 hour Intake 76062.34 ml Output 71423 ml Net 840.34 ml IVF: fentanyl (SUBLIMAZE) [...] in sodium chloride 0.9% 100 mL IVPB (Qlbi2Ukt) 1 g Every 6 hours 10/17/2025 10/19/2025 Admin Instructions: Dosage may need to be adjusted for renal dysfunction. Full dose is 1g IV q6h Use Rrqc4Rok Adapter - Mix Thoroughly Before Administration Notes to Pharmacy: On ordering machine operator estimated creatinine clearance is 101.9 mL/min (based on SCr of 0.81 mg/dL). Route: Intravenous Linked Group 1: Placed in And Linked Group AMPicillin 2 g in sodium chloride 0.9% 100 mL IVPB (Boti2Ztu) (Completed) 2 g Once 10/17/2025 10/17/2025 Admin Instructions: Begin infusion 20-60 minutes prior to incision Use Zhez9Ktu Adapter - Mix Thoroughly Before Administration Notes to Pharmacy: On ordering machine operator estimated creatinine clearance is 98.3 mL/min (based [...] 1 PT/OT: pending. PT Recs: OT Recs: RADIOLOGY RESIDENT Recs: Dispo: Remain in SICU. DUARTE EL [...] Patient will remain free of falls Goal: [place] Fall Precautions Outcome: Adequate for Discharge Problem: [...] intervention. Outcome: Adequate for Discharge Problem: Non-violent, srv-ggjk-jyovyassfxg restraints Description: Less restrictive alternative interventions will [...] of medical procedures, or protection of medical social consultant access. Outcome: Adequate for Discharge Problem: Knowledge [...] 1960 Age: 65 y.o. Gender: male SSN: [id number] Address: [address] [place] [address] [place] [address] Phone number: [phone] Patient emergency contact: Extended Emergency Contact Information Primary Emergency Contact: Stacy Serrano Address: [address] [place], [place] [id number] [facility] Mobile Relation: Spouse Date of admission: 10/17/2025 Date of discharge: 10/22/2025 Attending provider: Lane Troy MD Primary care physician: PROVIDER NOT IN SYSTEM Code status: Full Code Allergies: Allergies[1] Insurance Information Insurance Information [employer] Phone: -- Subscriber: David Serrano Subscriber#: [id number] Group#: [id number] Precert#: -- Authorization#: [id number] Effective Date: -- TRANSPLANT GLOBAL/TRANSPLANT GLOBAL Phone: -- Subscriber: David Serrano Subscriber#: [id number] Group#: -- Precert#: -- Authorization#: [id number] Effective Date: -- Diagnoses Present on Admission [...] Gelatein Plus- clear thickened, gelatin high protein ([facility] and [facility] only) Regular Diet Services Required Shelter: vital signs, med management, lab draws Physical [...] scale: Blood glucose 150-199 mg/dL =1units, Blood -216 mg/dL =2 units, Blood glucose 250-299 mg/dL [...] Your Medications These medications were sent to [facility] [address] [place], [place] [id number] Hours: Wednesday - Wednesday: 8:00AM - 6:00PM [...] Fax results to liver transplant clinic at [phone]. NURSE VISIT: Please check vitals and assess/monitor [...] effort and are for medical reasons or evangelical services or infrequently or short duration when for other reasons) due to deconditioning it would be a taxing effort to receive outpatient services. My signature below is to certify that this patient is under my care and that I, or nurse practitioner, or a physician doctor assistant working with me, had a saij-mj-arjp encounter with this is patient on: 10/22/2025 Follow-up Appointments and Post Hospital Discharge Physician Name Future Appointments Date Time Provider Department Center 10/30/2025 9:00 AM [facility] SURGERY, [facility] [address] [facility] [address] [facility] [address] Discharging Physician Signature and Credentials Discharging Physician: Electronically signed by LAISHA HERNANDEZ 10/22/2025, 1:32 PM Physician to follow up Information PCP: PROVIDER NOT IN SYSTEM PCP address: None PCP phone number: None PCP fax number: None Follow-up: Liver Transplant Clinic and their phone / fax is: [phone] / [phone] Rn Examiner and Credentials Provider/Company Name and Contact Number: Community Services at Discharge Community Services at Home post discharge: [facility] Name/Phone # post discharge: [facility] ([phone]) Home Health Services Types at Discharge: PT/OT/RADIOLOGY RESIDENT, Shelter ([facility] for lab draws.) Rn Examiner Name and Telephone Number: Citlaly Zimmerman RN/CM [phone] [1] Allergies Allergen Reactions Lisinopril Other (See [...] to patients area and insurance. Kamlesh Sanchez Horizontal Drill Operator [employer] Care Management Services [phone] * Plan of Care - Evelyn Galindo [...] Bush RN - 10/18/2025 3:55 PM EST [facility] Case Management/Social Work Department Progress Note [...] PCP: PROVIDER NOT IN SYSTEM Home Pharmacy: [facility] - TERRANCE Eng - [address] [place] [address] [place] [address] [place] [address] [facility] [address] [facility] [address] [facility] [address] [facility] [address] [facility] [address] [facility] [address] [facility] [address] Medical Insurance Coverage: Payor: NANCY / Plan: [...] discharge planning needs. TAMIA BUSH RN Cell [phone] * Plan of Care - Angela Tamez [...] Patient will remain free of falls Goal: [place] Fall Precautions Outcome: Progressing Problem: Daily Care [...] pain management intervention. Outcome: Progressing Problem: Non-violent, cpy-uyjm-figcgslcjzf restraints Description: Less restrictive alternative interventions will [...] of medical procedures, or protection of medical social consultant access. Outcome: Progressing Problem: Knowledge Deficit Goal: [...] Patient will remain free of falls Goal: [place] Fall Precautions Outcome: Progressing Problem: Daily Care [...] pain management intervention. Outcome: Progressing Problem: Non-violent, fhf-zbwr-lkibrulketg restraints Description: Less restrictive alternative interventions will [...] of medical procedures, or protection of medical social consultant access. Outcome: Progressing Patient in bilateral soft [...] Priority Date/Time Associated Diagnosis Comments US DUPLEX [id number] COMPLETE STAT 10/22/2025 10:24 AM EST US [...] Routine 10/18/2025 10:29 AM EST US DUPLEX QIS-[id number]-[id number] COMPLETE STAT 10/18/2025 9:35 AM EST US [...] in this encounter Results * US Duplex Wyh-Zjy-Cwvqqig Comp (10/22/2025 10:24 AM EST) Anatomical Region [...] EXAM: US ABDOMEN COMPLETE EXAM: US DUPLEX [id number] COMPLETE INDICATION: Post-op liver transplant DATE: 10/22/2025 [...] EXAM: US ABDOMEN COMPLETE EXAM: US DUPLEX [id number]-[id number]-[id number] COMPLETE INDICATION: Post-op liver transplant DATE: 10/22/2025 [...] EXAM: US ABDOMEN COMPLETE EXAM: US DUPLEX [id number] COMPLETE INDICATION: Post-op liver transplant DATE: 10/22/2025 [...] EXAM: US ABDOMEN COMPLETE EXAM: US DUPLEX [id number] COMPLETE INDICATION: Post-op liver transplant DATE: 10/22/2025 [...] - 100 mg/dL 10/22/2025 10:24 AM EST [facility] Blood 10/22/2025 10:2 3 AM EST 10/22/2025 10:23 AM EST us Vani Winkler MD POINT OF CARE TEST ORDERABLE S Final Result [facility] [address] [place], [place] [address] * Tacrolimus level (10/22/2025 9:48 AM EST) Tacrolimus (LC-MS) 4.0 3.0 - 15.0 ng/mL 10/22/2025 12:57 PM EST [facility] Comment:Performed via liquid chromatography tandem mass spectrometry. Detection limit: 1 ng/mL. Individual target concentrations may vary due to target organ and time after transplant. This test has been developed and its performance characteristics determined by [facility] which is certified under the [...] ORDERABLES Final Re sult Performing Organization Address City/[facility]/ZIP Co de Phone Number [facility] [address] [place] [address]. [address] * Phosphorus (10/22/2025 5:28 AM EST) Phosphorus 2.3 2.1 - 4.7 mg/dL 10/22/2025 6:20 AM EST [facility] Plasma 10/22/2025 5:28 AM EST 10/22/2025 5:42 AM EST Aspen Parr MD LAB BLOOD ORDERABLES Final Resul t Performing Organization Address [facility] de Phone Number [facility] [address] [place] [address]. [address] * Magnesium (10/22/2025 5:28 AM EST) Magnesium 1.7 1.5 - 2.5 mg/dL 10/22/2025 6:20 AM EST [facility] Plasma 10/22/2025 5:28 AM EST 10/22/2025 5:42 AM EST Aspen Parr MD LAB BLOOD ORDERABLES Final Resul t Performing Organization Address [facility] de Phone Number [address] * (ABNORMAL) CBC (10/22/2025 5:28 AM EST) WBC 6.6 3.8 - 10.8 10E3/uL 10/22/2025 5:48 AM EST [facility] RBC 2.84(L) 4.20 - 5.80 10E6/uL 10/22/2025 5:48 AM EST [facility] Hemoglobin 9.3(L) 13.2 - 17.1 g/dL 10/22/2025 5:48 AM EST [facility] Hematocrit 26.4(L) 38.5 - 50.0 % 10/22/2025 5:48 AM EST [facility] MCV 92.8 80.0 - 100.0 fL 10/22/2025 5:48 AM EST [facility] MCH 32.8 27.0 - 33.0 pg 10/22/2025 5:48 AM EST [facility] MCHC 35.4 32.0 - 36.0 g/dL 10/22/2025 5:48 AM EST [facility] RDW 16.0(H) 11.0 - 15.0 % 10/22/2025 5:48 AM EST [facility] Platelets 22(L) 140 - 400 10E3/uL 10/22/2025 5:48 AM [facility] Comment: CNV Specimen checked for clots. None detected. MPV 9.1 7.5 - 11.5 fL 10/22/2025 5:48 AM [facility] Whole Blood 10/22/2025 5:28 AM EST 10/22/2025 5:42 AM EST us Aspen Parr MD LAB BLOOD ORDERABLES Final Resul t [facility] [address] * (ABNORMAL) Hepatic Function Panel (10/22/2025 5:28 AM EST) Total Bilirubin 1.0 0.0 - 1.5 mg/dL 10/22/2025 6:20 AM EST [facility] Bilirubin, Direct 0.28 0.00 - 0.40 mg/dL 10/22/2025 6:20 AM EST [facility] AST 42(H) 13 - 39 U/L 10/22/2025 6:20 AM EST [facility] ALT 270(H) 7 - 52 U/L 10/22/2025 6:20 AM EST [facility] Alkaline Phosphatase 84 36 - 125 U/L 10/22/2025 6:20 AM EST [facility] Total Protein 4.3(L) 6.4 - 8.9 g/dL 10/22/2025 6:20 AM EST [facility] Albumin 2.1(L) 3.5 - 5.7 g/dL 10/22/2025 6:20 AM EST [facility] Bilirubin, Indirect 0.72 0.00 - 1.10 mg/dL 10/22/2025 6:20 AM EST [facility] Plasma 10/22/2025 5:28 AM EST 10/22/2025 5:42 AM EST us Aspen Parr MD LAB BLOOD ORDERABLES Final Resul t [facility] [address] [place] [address], [facility] * (ABNORMAL) Basic metabolic panel (10/22/2025 5:28 AM EST) Sodium 138 133 - 146 mmol/L 10/22/2025 6:20 AM EST [facility] Potassium 3.2(L) 3.5 - 5.3 mmol/L 10/22/2025 6:20 AM [facility] Chloride 107 98 - 110 mmol/L 10/22/2025 6:20 AM [facility] CO2 25 21 - 33 mmol/L 10/22/2025 6:20 AM [facility] Comment:High lactate dehydro genase concentrations in patient samples may cause falsely increased bicarbonate results. If markedly elevated LDH is observed or suspected, please assess results in conjunction with patient`s clinical presentation. In cases of discrepant results, consider evaluating CO2 in with a blood gas order. Anion Gap 6 3 - 16 mmol/L 10/22/2025 6:20 AM EST [facility] BUN 25 7 - 25 mg/dL 10/22/2025 6:20 AM [facility] Creatinine 0.81 0.60 - 1.30 mg/dL 10/22/2025 6:20 AM [facility] Glucose 100 70 - 100 mg/dL 10/22/2025 6:20 AM [facility] Calcium 6.8(L) 8.6 - 10.3 mg/dL 10/22/2025 6:20 AM EST [facility] Osmolality, Calculated 290 278 - 305 mOsm/kg 10/22/2025 6:20 AM EST [facility] EGFR >90 10/22/2025 6:20 AM EST [facility] Comment: As of 2022, [...] ORDERABLES Final Resul t Performing Organization Address City/State/[facility] Co de Phone Number [facility] [address] [place] [id number] * (ABNORMAL) POC Glucose Monitoring Device (10/21/2025 4:31 PM EST) POC Glucose Monitoring Device 230(H) 70 - 100 mg/dL 10/21/2025 4:32 PM EST [facility] Blood 10/21/2025 4:31 PM EST 10/21/2025 4:32 PM EST us Vani Winkler MD POINT OF CARE TEST ORDERABLE S Final Result Performing Organization Address City/[facility]/ZIP Co de Phone Number [facility] [address] * (ABNORMAL) POC Glucose Monitoring Device (10/21/2025 12:27 PM EST) POC Glucose Monitoring Device 181(H) 70 - 100 mg/dL 10/21/2025 12:27 PM EST [facility] Blood 10/21/2025 12:2 7 PM EST 10/21/2025 12:27 PM EST Vani Winkler MD POINT OF CARE TEST ORDERABLE S Final Result Performing Organization Address [facility] Co de Phone Number [facility] [address] [facility]. [address] * Tacrolimus level (10/21/2025 8:30 AM EST) Pathologist [facility] Tacrolimus (LC-MS) 6.9 3.0 - 15.0 ng/mL 10/21/2025 3:07 PM EST [facility] Comment:Performed via liquid chromatography tandem mass spectrometry. Detection limit: 1 ng/mL. Individual target concentrations may vary due to target organ and time after transplant. This test has been developed and its performance characteristics determined by [facility] which is certified under the [...] ORDERABLES Final Re sult Performing Organization Address [facility] Co de Phone Number [facility] [address] [facility]. [address] * (ABNORMAL) POC Glucose Monitoring Device (10/21/2025 8:18 AM EST) Pathologist [facility] POC Glucose Monitoring Device 112(H) 70 - 100 mg/dL 10/21/2025 8:28 AM EST [facility] Blood 10/21/2025 8:18 AM EST 10/21/2025 8:28 AM EST Vani Winkler MD POINT OF CARE TEST ORDERABLE S Final Result Performing Organization Address City/[facility]/ZIP Co de Phone Number [facility] [address] [facility]. [address] * (ABNORMAL) Hepatic Function Panel (10/21/2025 6:35 AM EST) [facility] Total Bilirubin 0.9 0.0 - 1.5 mg/dL 10/21/2025 7:45 AM EST [facility] Bilirubin, Direct 0.41(H) 0.00 - 0.40 mg/dL 10/21/2025 7:45 AM EST [facility] AST 64(H) 13 - 39 U/L 10/21/2025 7:45 AM EST [facility] ALT 389(H) 7 - 52 U/L 10/21/2025 7:45 AM EST [facility] Alkaline Phosphatase 83 36 - 125 U/L 10/21/2025 7:45 AM EST [facility] Total Protein 4.3(L) 6.4 - 8.9 g/dL 10/21/2025 7:45 AM EST [facility] Albumin 2.2(L) 3.5 - 5.7 g/dL 10/21/2025 7:45 AM EST [facility] Bilirubin, Indirect 0.49 0.00 - 1.10 mg/dL 10/21/2025 7:45 AM EST [facility] Plasma 10/21/2025 6:35 AM EST 10/21/2025 6:58 AM EST Aspen Parr MD LAB BLOOD ORDERABLES Final Resul t Performing Organization Address City/[facility]/ZIP Co de Phone Number [facility] [address] [facility]. [address] * Magnesium (10/21/2025 6:35 AM EST) Magnesium 2.0 1.5 - 2.5 mg/dL 10/21/2025 7:45 AM EST [facility] Plasma 10/21/2025 6:35 AM EST 10/21/2025 6:58 AM EST us Aspen Parr MD LAB BLOOD ORDERABLES Final Resul t [facility] [address] [place] [id number] * (ABNORMAL) Renal Function Panel w/EGFR (10/21/2025 6:35 AM EST) Sodium 139 133 - 146 mmol/L 10/21/2025 7:45 AM EST [facility] Potassium 3.5 3.5 - 5.3 mmol/L 10/21/2025 7:45 AM EST [facility] Chloride 108 98 - 110 mmol/L 10/21/2025 7:45 AM [facility] CO2 26 21 - 33 mmol/L 10/21/2025 7:45 AM [facility] Comment:High lactate dehydro genase concentrations in patient samples may cause falsely increased bicarbonate results. If markedly elevated LDH is observed or suspected, please assess results in conjunction with patient`s clinical presentation. In cases of discrepant results, consider evaluating CO2 in with a blood gas order. Anion Gap 5 3 - 16 mmol/L 10/21/2025 7:45 AM EST [facility] BUN 39(H) 7 - 25 mg/dL 10/21/2025 7:45 AM [facility] Creatinine 0.96 0.60 - 1.30 mg/dL 10/21/2025 7:45 AM [facility] Glucose 126(H) 70 - 100 mg/dL 10/21/2025 7:45 AM EST [facility] Calcium 6.8(L) 8.6 - 10.3 mg/dL 10/21/2025 7:45 AM [facility] Phosphorus 2.8 2.1 - 4.7 mg/dL 10/21/2025 7:45 AM [facility] Albumin 2.2(L) 3.5 - 5.7 g/dL 10/21/2025 7:45 AM EST [facility] Osmolality, Calculated 299 278 - 305 mOsm/kg 10/21/2025 7:45 AM EST [facility] EGFR 88 10/21/2025 7:45 AM EST [facility] Comment:As of 2022, the [...] MD LAB BLOOD ORDERABLES Final Resul t [facility] [address] [place] [address], [facility] * (ABNORMAL) CBC (10/21/2025 6:35 AM EST) WBC 8.4 3.8 - 10.8 10E3/uL 10/21/2025 7:55 AM EST [facility] RBC 2.68(L) 4.20 - 5.80 10E6/uL 10/21/2025 7:55 AM EST [facility] Hemoglobin 8.9(L) 13.2 - 17.1 g/dL 10/21/2025 7:55 AM EST [facility] Hematocrit 24.8(L) 38.5 - 50.0 % 10/21/2025 7:55 AM EST [facility] MCV 92.6 80.0 - 100.0 fL 10/21/2025 7:55 AM EST [facility] MCH 33.3(H) 27.0 - 33.0 pg 10/21/2025 7:55 AM EST [facility] MCHC 36.0 32.0 - 36.0 g/dL 10/21/2025 7:55 AM EST [facility] RDW 16.9(H) 11.0 - 15.0 % 10/21/2025 7:55 AM EST [facility] Platelets 20(L) 140 - 400 10E3/uL 10/21/2025 7:55 AM EST [facility] Comment: CNV Specimen checked for clots. None detected. MPV 8.5 7.5 - 11.5 fL 10/21/2025 7:55 AM EST [facility] Whole Blood 10/21/2025 6:35 AM EST 10/21/2025 6:58 AM EST Aspen Parr MD LAB BLOOD ORDERABLES Final Resul t [facility] [address] * (ABNORMAL) POC Glucose Monitoring Device (10/20/2025 5:17 PM EST) POC Glucose Monitoring Device 195(H) 70 - 100 mg/dL 10/20/2025 5:18 PM EST [facility] Blood 10/20/2025 5:17 PM EST 10/20/2025 5:18 PM EST Vani Winkler MD POINT OF CARE TEST ORDERABLE S Final Result [facility] [address] * (ABNORMAL) POC Glucose Monitoring Device (10/20/2025 2:24 PM EST) POC Glucose Monitoring Device 205(H) 70 - 100 mg/dL 10/20/2025 2:24 PM EST [facility] Blood 10/20/2025 2:24 PM EST 10/20/2025 2:24 PM EST Vani Winkler MD POINT OF CARE TEST ORDERABLE S Final Result Performing Organization Address City/[facility]/ZIP Co de Phone Number [facility] [address] * Tacrolimus level (10/20/2025 10:31 AM EST) Tacrolimus (LC-MS) 7.9 3.0 - 15.0 ng/mL 10/20/2025 2:25 PM EST [facility] Comment:Performed via liquid chromatography tandem mass spectrometry. Detection limit: 1 ng/mL. Individual target concentrations may vary due to target organ and time after transplant. This test has been developed and its performance characteristics determined by [facility] which is certified under the [...] ORDERABLES Final Re sult Performing Organization Address [facility] Co de Phone Number [facility] [address] [facility]. [address] * (ABNORMAL) POC Glucose Monitoring Device (10/20/2025 9:24 AM EST) POC Glucose Monitoring Device 227(H) 70 - 100 mg/dL 10/20/2025 9:25 AM EST [facility] Blood 10/20/2025 9:24 AM EST 10/20/2025 9:25 AM EST Vani Winkler MD POINT OF CARE TEST ORDERABLE S Final Result Performing Organization Address City/[facility]/ZIP Co de Phone Number [facility] [address] * Magnesium (10/20/2025 5:31 AM EST) Magnesium 2.1 1.5 - 2.5 mg/dL 10/20/2025 7:35 AM EST [facility] Plasma 10/20/2025 5:31 AM EST 10/20/2025 5:42 AM EST Aspen Parr MD LAB BLOOD ORDERABLES Final Resul t Performing Organization Address [facility] Co de Phone Number [facility] [address] [facility]. [address] * (ABNORMAL) Hepatic Function Panel (10/20/2025 5:31 AM EST) Total Bilirubin 0.9 0.0 - 1.5 mg/dL 10/20/2025 7:35 AM EST [facility] Bilirubin, Direct 0.43(H) 0.00 - 0.40 mg/dL 10/20/2025 7:35 AM EST [facility] AST 161(H) 13 - 39 U/L 10/20/2025 7:35 AM EST [facility] ALT 532(H) 7 - 52 U/L 10/20/2025 7:35 AM EST [facility] Alkaline Phosphatase 67 36 - 125 U/L 10/20/2025 7:35 AM EST [facility] Total Protein 4.2(L) 6.4 - 8.9 g/dL 10/20/2025 7:35 AM EST [facility] Albumin 2.2(L) 3.5 - 5.7 g/dL 10/20/2025 7:35 AM EST [facility] Bilirubin, Indirect 0.47 0.00 - 1.10 mg/dL 10/20/2025 7:35 AM EST [facility] Plasma 10/20/2025 5:3 1 AM EST 10/20/2025 5:42 AM EST us Aspen Parr MD LAB BLOOD ORDERABLES Final Resul t Performing Organization Address City/[facility]/ZIP Co de Phone Number [facility] [address] [facility]. [address] * (ABNORMAL) Renal Function Panel w/EGFR (10/20/2025 5:31 AM EST) Sodium 142 133 - 146 mmol/L 10/20/2025 7:23 AM [facility] Potassium 3.8 3.5 - 5.3 mmol/L 10/20/2025 7:23 AM [facility] Chloride 111(H) 98 - 110 mmol/L 10/20/2025 7:23 AM [facility] CO2 25 21 - 33 mmol/L 10/20/2025 7:23 AM [facility] Comment:High lactate dehydro genase concentrations in patient samples may cause falsely increased bicarbonate results. If markedly elevated LDH is observed or suspected, please assess results in conjunction with patient`s clinical presentation. In cases of discrepant results, consider evaluating CO2 in with a blood gas order. Anion Gap 6 3 - 16 mmol/L 10/20/2025 7:23 AM [facility] BUN 47(H) 7 - 25 mg/dL 10/20/2025 7:23 AM [facility] Creatinine 1.15 0.60 - 1.30 mg/dL 10/20/2025 7:23 AM [facility] Glucose 198(H) 70 - 100 mg/dL 10/20/2025 7:23 AM [facility] Calcium 6.8(L) 8.6 - 10.3 mg/dL 10/20/2025 7:23 AM [facility] Phosphorus 4.8(H) 2.1 - 4.7 mg/dL 10/20/2025 7:35 AM [facility] Albumin 2.2(L) 3.5 - 5.7 g/dL 10/20/2025 7:35 AM [facility] Osmolality, Calculated 312(H) 278 - 305 mOsm/kg 10/20/2025 7:23 AM [facility] EGFR 71 10/20/2025 7:23 AM [facility] Comment:As of 2022, the estimated [...] MD LAB BLOOD ORDERABLES Final Resul t [facility] [address] * (ABNORMAL) CBC (10/20/2025 5:31 AM EST) WBC 6.1 3.8 - 10.8 10E3/uL 10/20/2025 6:18 AM EST [facility] RBC 2.64(L) 4.20 - 5.80 10E6/uL 10/20/2025 6:18 AM EST [facility] Hemoglobin 8.5(L) 13.2 - 17.1 g/dL 10/20/2025 6:18 AM EST [facility] Hematocrit 24.6(L) 38.5 - 50.0 % 10/20/2025 6:18 AM EST [facility] MCV 93.2 80.0 - 100.0 fL 10/20/2025 6:18 AM EST [facility] MCH 32.2 27.0 - 33.0 pg 10/20/2025 6:18 AM EST [facility] MCHC 34.6 32.0 - 36.0 g/dL 10/20/2025 6:18 AM EST [facility] RDW 17.4(H) 11.0 - 15.0 % 10/20/2025 6:18 AM EST [facility] Platelets 17(LL) 140 - 400 10E3/uL 10/20/2025 6:18 AM EST [facility] Comment: Results verified by repeat analysis. Critical Result PLT:[id number] Called to and read back by ALEKSANDR SMITH RN at: 10/20/2025 06:18:19 by:DEJON FISHMAN 8.4 7.5 - 11.5 fL 10/20/2025 6:18 AM EST [facility] Whole Blood 10/20/2025 5:31 AM EST 10/20/2025 5:42 AM EST Aspen Parr MD LAB BLOOD ORDERABLES Final Resul t [facility] [address] * (ABNORMAL) POC Glucose Monitoring Device (10/20/2025 5:30 AM EST) POC Glucose Monitoring Device 208(H) 70 - 100 mg/dL 10/20/2025 5:31 AM EST [facility] Blood 10/20/2025 5:30 AM EST 10/20/2025 5:31 AM EST Vani Winkler MD POINT OF CARE TEST ORDERABLE S Final Result Performing Organization Address City/[facility] Co de Phone Number [facility] [address] * (ABNORMAL) Protime-INR (10/19/2025 11:03 PM EST) Protime 18.2(H) 12.1 - 15.1 seconds 10/19/2025 11:27 PM EST [facility] INR 1.4(H) 0.9 - 1.1 10/19/2025 11:27 PM EST [facility] Comment: RECOMMENDED THERAPEUTIC RANGES USING INR : Stable oral anticoagulant therapy: 2.0 - 3.0 Mechanical prosthetic heart valve: 2.5 - 3.5 Recurrent acute myocardial infarction: 2.5 - 3.5 Plasma 10/19/2025 11:0 3 PM EST 10/19/2025 11:07 PM EST us Aspen Parr MD LAB BLOOD ORDERABLES Final Resul t [facility] [address] [facility]. [address] * Magnesium (10/19/2025 11:03 PM EST) Magnesium 2.1 1.5 - 2.5 mg/dL 10/19/2025 11:45 PM EST [facility] Plasma 10/19/2025 11:0 3 PM EST 10/19/2025 11:07 PM EST Aspen Parr MD LAB BLOOD ORDERABLES Final Resul t Performing Organization Address City/[facility]/ZIP Co de Phone Number [facility] [address] [facility]. [address] * (ABNORMAL) Hepatic Function Panel (10/19/2025 11:03 PM EST) Total Bilirubin 1.0 0.0 - 1.5 mg/dL 10/19/2025 11:45 PM EST [facility] Bilirubin, Direct 0.48(H) 0.00 - 0.40 mg/dL 10/19/2025 11:45 PM EST [facility] AST 223(H) 13 - 39 U/L 10/19/2025 11:45 PM EST [facility] ALT 569(H) 7 - 52 U/L 10/19/2025 11:45 PM EST [facility] Alkaline Phosphatase 68 36 - 125 U/L 10/19/2025 11:45 PM EST [facility] Total Protein 4.4(L) 6.4 - 8.9 g/dL 10/19/2025 11:45 PM EST [facility] Albumin 2.2(L) 3.5 - 5.7 g/dL 10/19/2025 11:45 PM EST [facility] Bilirubin, Indirect 0.52 0.00 - 1.10 mg/dL 10/19/2025 11:45 PM EST [facility] Plasma 10/19/2025 11:0 3 PM EST 10/19/2025 11:07 PM EST Aspen Parr MD LAB BLOOD ORDERABLES Final Resul t [facility] [address] [place] [id number], [facility] * (ABNORMAL) Renal Function Panel w/EGFR (10/19/2025 11:03 PM EST) Sodium 144 133 - 146 mmol/L 10/19/2025 11:33 PM EST [facility] Potassium 3.6 3.5 - 5.3 mmol/L 10/19/2025 11:33 PM [facility] Chloride 110 98 - 110 mmol/L 10/19/2025 11:33 PM [facility] CO2 25 21 - 33 mmol/L 10/19/2025 11:33 PM [facility] Comment:High lactate dehydro genase concentrations in patient samples may cause falsely increased bicarbonate results. If markedly elevated LDH is observed or suspected, please assess results in conjunction with patient`s clinical presentation. In cases of discrepant results, consider evaluating CO2 in with a blood gas order. Anion Gap 9 3 - 16 mmol/L 10/19/2025 11:33 PM [facility] BUN 46(H) 7 - 25 mg/dL 10/19/2025 11:33 PM [facility] Creatinine 1.24 0.60 - 1.30 mg/dL 10/19/2025 11:33 PM [facility] Glucose 184(H) 70 - 100 mg/dL 10/19/2025 11:33 PM [facility] Calcium 7.1(L) 8.6 - 10.3 mg/dL 10/19/2025 11:33 PM [facility] Phosphorus 4.9(H) 2.1 - 4.7 mg/dL 10/19/2025 11:45 PM [facility] Albumin 2.2(L) 3.5 - 5.7 g/dL 10/19/2025 11:45 PM [facility] Osmolality, Calculated 315(H) 278 - 305 mOsm/kg 10/19/2025 11:33 PM [facility] EGFR 65 10/19/2025 11:33 PM [facility] Comment:As of 2022, the estimated [...] MD LAB BLOOD ORDERABLES Final Resul t [facility] [address] [id number] * (ABNORMAL) CBC (10/19/2025 11:03 PM EST) WBC 7.0 3.8 - 10.8 10E3/uL 10/19/2025 11:20 PM EST [facility] RBC 2.77(L) 4.20 - 5.80 10E6/uL 10/19/2025 11:20 PM EST [facility] Hemoglobin 8.9(L) 13.2 - 17.1 g/dL 10/19/2025 11:20 PM EST [facility] Hematocrit 25.8(L) 38.5 - 50.0 % 10/19/2025 11:20 PM EST [facility] MCV 93.2 80.0 - 100.0 fL 10/19/2025 11:20 PM EST [facility] MCH 32.2 27.0 - 33.0 pg 10/19/2025 11:20 PM EST [facility] MCHC 34.5 32.0 - 36.0 g/dL 10/19/2025 11:20 PM EST [facility] RDW 18.1(H) 11.0 - 15.0 % 10/19/2025 11:20 PM EST [facility] Platelets 20(L) 140 - 400 10E3/uL 10/19/2025 11:20 PM EST [facility] Comment:CNV MPV 8.0 7.5 - 11.5 fL 10/19/2025 11:20 PM EST [facility] Whole Blood 10/19/2025 11:0 3 PM EST 10/19/2025 11:07 PM EST us Aspen Parr MD LAB BLOOD ORDERABLES Final Resul t [facility] [address] [facility]. [address] * (ABNORMAL) POC Glucose Monitoring Device (10/19/2025 11:02 PM EST) POC Glucose Monitoring Device 185(H) 70 - 100 mg/dL 10/19/2025 11:03 PM EST [facility] Blood 10/19/2025 11:0 2 PM EST 10/19/2025 11:03 PM EST Vani Winkler MD POINT OF CARE TEST ORDERABLE S Final Result Performing Organization Address City/[facility]/ZIP Co de Phone Number [facility] [address] [facility]. [address] * (ABNORMAL) POC Glucose Monitoring Device (10/19/2025 5:24 PM EST) POC Glucose Monitoring Device 166(H) 70 - 100 mg/dL 10/19/2025 5:35 PM EST [facility] Blood 10/19/2025 5:24 PM EST 10/19/2025 5:35 PM EST Vani Winkler MD POINT OF CARE TEST ORDERABLE S Final Result [facility] [address] * (ABNORMAL) POC Glucose Monitoring Device (10/19/2025 12:26 PM EST) POC Glucose Monitoring Device 156(H) 70 - 100 mg/dL 10/19/2025 12:27 PM EST [facility] Blood 10/19/2025 12:2 6 PM EST 10/19/2025 12:27 PM EST Vani Winkler MD POINT OF CARE TEST ORDERABLE S Final Result Performing Organization Address City/[facility]/ZIP Co de Phone Number [facility] [address] [facility]. [address] * (ABNORMAL) POC Glucose Monitoring Device (10/19/2025 9:51 AM EST) POC Glucose Monitoring Device 110(H) 70 - 100 mg/dL 10/19/2025 9:52 AM EST [facility] Blood 10/19/2025 9:51 AM EST 10/19/2025 9:52 AM EST Vani Winkler MD POINT OF CARE TEST ORDERABLE S Final Result Performing Organization Address City/[facility] de Phone Number [facility] [address] * (ABNORMAL) Tacrolimus level (10/19/2025 8:29 AM EST) Tacrolimus (LC-MS) 2.1(L) 3.0 - 15.0 ng/mL 10/19/2025 3:06 PM EST [facility] Comment:Performed via liquid chromatography tandem mass spectrometry. Detection limit: 1 ng/mL. Individual target concentrations may vary due to target organ and time after transplant. This test has been developed and its performance characteristics determined by [facility] which is certified under the [...] ORDERABLES Final Re sult Performing Organization Address City/[facility] Co de Phone Number [facility] [address] * (ABNORMAL) Protime-INR (10/19/2025 8:29 AM EST) Protime 19.1(H) 12.1 - 15.1 seconds 10/19/2025 9:09 AM EST [facility] INR 1.5(H) 0.9 - 1.1 10/19/2025 9:09 AM EST [facility] Comment: RECOMMENDED THERAPEUTIC RANGES USING INR : Stable oral anticoagulant therapy: 2.0 - 3.0 Mechanical prosthetic heart valve: 2.5 - 3.5 Recurrent acute myocardial infarction: 2.5 - 3.5 Plasma 10/19/2025 8:29 AM EST 10/19/2025 8:33 AM EST us Aspen Parr MD LAB BLOOD ORDERABLES Final Resul t Performing Organization Address [facility] Co de Phone Number [facility] [address] * Magnesium (10/19/2025 8:29 AM EST) Magnesium 2.0 1.5 - 2.5 mg/dL 10/19/2025 9:28 AM EST [facility] Plasma 10/19/2025 8:29 AM EST 10/19/2025 8:33 AM EST Aspen Parr MD LAB BLOOD ORDERABLES Final Resul t Performing Organization Address City/[facility] Co de Phone Number [facility] [address] [facility]. [address] * (ABNORMAL) Hepatic Function Panel (10/19/2025 8:29 AM EST) Total Bilirubin 1.0 0.0 - 1.5 mg/dL 10/19/2025 9:28 AM EST [facility] Bilirubin, Direct 0.44(H) 0.00 - 0.40 mg/dL 10/19/2025 9:28 AM EST [facility] AST 450(H) 13 - 39 U/L 10/19/2025 9:28 AM EST [facility] ALT 725(H) 7 - 52 U/L 10/19/2025 9:28 AM EST [facility] Alkaline Phosphatase 65 36 - 125 U/L 10/19/2025 9:28 AM EST [facility] Total Protein 4.4(L) 6.4 - 8.9 g/dL 10/19/2025 9:28 AM EST [facility] Albumin 2.2(L) 3.5 - 5.7 g/dL 10/19/2025 9:28 AM EST [facility] Bilirubin, Indirect 0.56 0.00 - 1.10 mg/dL 10/19/2025 9:28 AM EST [facility] Plasma 10/19/2025 8:29 AM EST 10/19/2025 8:33 AM EST us Aspen Parr MD LAB BLOOD ORDERABLES Final Resul t [facility] [address] [id number] * (ABNORMAL) Renal Function Panel w/EGFR (10/19/2025 8:29 AM EST) Sodium 145 133 - 146 mmol/L 10/19/2025 9:09 AM EST [facility] Potassium 3.6 3.5 - 5.3 mmol/L 10/19/2025 9:09 AM [facility] Chloride 113(H) 98 - 110 mmol/L 10/19/2025 9:09 AM EST [facility] CO2 25 21 - 33 mmol/L 10/19/2025 9:09 AM EST [facility] Comment:High lactate dehydro genase concentrations in patient samples may cause falsely increased bicarbonate results. If markedly elevated LDH is observed or suspected, please assess results in conjunction with patient`s clinical presentation. In cases of discrepant results, consider evaluating CO2 in with a blood gas order. Anion Gap 7 3 - 16 mmol/L 10/19/2025 9:09 AM EST [facility] BUN 38(H) 7 - 25 mg/dL 10/19/2025 9:09 AM EST [facility] Creatinine 1.16 0.60 - 1.30 mg/dL 10/19/2025 9:09 AM EST [facility] Glucose 129(H) 70 - 100 mg/dL 10/19/2025 9:09 AM EST [facility] Calcium 7.2(L) 8.6 - 10.3 mg/dL 10/19/2025 9:09 AM EST [facility] Phosphorus 4.0 2.1 - 4.7 mg/dL 10/19/2025 9:28 AM EST [facility] Albumin 2.2(L) 3.5 - 5.7 g/dL 10/19/2025 9:28 AM EST [facility] Osmolality, Calculated 311(H) 278 - 305 mOsm/kg 10/19/2025 9:09 AM EST [facility] EGFR 70 10/19/2025 9:09 AM EST [facility] Comment:As of 2022, the [...] MD LAB BLOOD ORDERABLES Final Resul t [facility] [address] * (ABNORMAL) CBC (10/19/2025 8:29 AM EST) WBC 9.8 3.8 - 10.8 10E3/uL 10/19/2025 9:06 AM EST [facility] RBC 2.90(L) 4.20 - 5.80 10E6/uL 10/19/2025 9:06 AM [facility] Hemoglobin 9.6(L) 13.2 - 17.1 g/dL 10/19/2025 9:06 AM [facility] Hematocrit 26.8(L) 38.5 - 50.0 % 10/19/2025 9:06 AM [facility] MCV 92.4 80.0 - 100.0 fL 10/19/2025 9:06 AM [facility] MCH 33.2(H) 27.0 - 33.0 pg 10/19/2025 9:06 AM [facility] MCHC 36.0 32.0 - 36.0 g/dL 10/19/2025 9:06 AM [facility] RDW 18.5(H) 11.0 - 15.0 % 10/19/2025 9:06 AM [facility] Platelets 22(L) 140 - 400 10E3/uL 10/19/2025 9:06 AM [facility] Comment: CNV Specimen checked for clots. None detected. MPV 8.5 7.5 - 11.5 fL 10/19/2025 9:06 AM [facility] Whole Blood 10/19/2025 8:29 AM EST 10/19/2025 8:33 AM EST us Aspen Parr MD LAB BLOOD ORDERABLES Final Resul t [facility] [address] [place] [address], [facility] * (ABNORMAL) POC Glucose Monitoring Device (10/19/2025 8:28 AM EST) POC Glucose Monitoring Device 122(H) 70 - 100 mg/dL 10/19/2025 8:39 AM EST [facility] Blood 10/19/2025 8:28 AM EST 10/19/2025 8:38 AM EST us Vani Winkler MD POINT OF CARE TEST ORDERABLE S Final Result Performing Organization Address [facility] de Phone Number [facility] [address] [place] [address]. [address] * (ABNORMAL) POC Glucose Monitoring Device (10/19/2025 7:07 AM EST) POC Glucose Monitoring Device 136(H) 70 - 100 mg/dL 10/19/2025 7:08 AM EST [facility] Blood 10/19/2025 7:07 AM EST 10/19/2025 7:08 AM EST us Vani Winkler MD POINT OF CARE TEST ORDERABLE S Final Result Performing Organization Address [facility] de Phone Number [facility] [address] [place] [address]. [address] * (ABNORMAL) POC Glucose Monitoring Device (10/19/2025 6:28 AM EST) POC Glucose Monitoring Device 109(H) 70 - 100 mg/dL 10/19/2025 6:29 AM EST [facility] Blood 10/19/2025 6:28 AM EST 10/19/2025 6:29 AM EST us Vani Winkler MD POINT OF CARE TEST ORDERABLE S Final Result Performing Organization Address [facility] de Phone Number [facility] [address] [place] [address]. [address] * (ABNORMAL) POC Glucose Monitoring Device (10/19/2025 6:10 AM EST) POC Glucose Monitoring Device 108(H) 70 - 100 mg/dL 10/19/2025 6:12 AM EST [facility] Blood 10/19/2025 6:10 AM EST 10/19/2025 6:11 AM EST us Vani Winkler MD POINT OF CARE TEST ORDERABLE S Final Result [facility] [address] [facility]. [address] * (ABNORMAL) POC Glucose Monitoring Device (10/19/2025 4:06 AM EST) POC Glucose Monitoring Device 115(H) 70 - 100 mg/dL 10/19/2025 4:07 AM EST [facility] Blood 10/19/2025 4:06 AM EST 10/19/2025 4:07 AM EST us Vani Winkler MD POINT OF CARE TEST ORDERABLE S Final Result Performing Organization Address [facility] Co de Phone Number [facility] [address] [facility]. [address] * (ABNORMAL) POC Glucose Monitoring Device (10/19/2025 2:04 AM EST) POC Glucose Monitoring Device 129(H) 70 - 100 mg/dL 10/19/2025 2:06 AM EST [facility] Blood 10/19/2025 2:04 AM EST 10/19/2025 2:05 AM EST Vani Winkler MD POINT OF CARE TEST ORDERABLE S Final Result Performing Organization Address City/[facility]/ZIP Co de Phone Number [facility] [address] [facility]. [address] * (ABNORMAL) POC Glucose Monitoring Device (10/18/2025 11:57 PM EST) POC Glucose Monitoring Device 131(H) 70 - 100 mg/dL 10/18/2025 11:58 PM EST [facility] Blood 10/18/2025 11:5 7 PM EST 10/18/2025 11:58 PM EST Vani Winkler MD POINT OF CARE TEST ORDERABLE S Final Result [facility] [address] * Lactic Acid (10/18/2025 10:20 PM EST) Lactate 0.8 0.5 - 2.2 mmol/L 10/18/2025 11:03 PM EST [facility] Plasma 10/18/2025 10:2 0 PM EST 10/18/2025 10:26 PM EST Aspen Parr MD LAB BLOOD ORDERABLES Final Resul t [facility] [address] [facility]. [address] * Magnesium (10/18/2025 10:20 PM EST) Magnesium 1.8 1.5 - 2.5 mg/dL 10/18/2025 11:18 PM EST [facility] Plasma 10/18/2025 10:2 0 PM EST 10/18/2025 10:26 PM EST Aspen Parr MD LAB BLOOD ORDERABLES Final Resul t [facility] [address] [facility]. [address] * (ABNORMAL) Hepatic Function Panel (10/18/2025 10:20 PM EST) Total Bilirubin 1.0 0.0 - 1.5 mg/dL 10/18/2025 11:18 PM EST [facility] Bilirubin, Direct 0.51(H) 0.00 - 0.40 mg/dL 10/18/2025 11:18 PM EST [facility] AST 717(H) 13 - 39 U/L 10/18/2025 11:18 PM EST [facility] ALT 792(H) 7 - 52 U/L 10/18/2025 11:18 PM EST [facility] Alkaline Phosphatase 62 36 - 125 U/L 10/18/2025 11:18 PM EST [facility] Total Protein 4.3(L) 6.4 - 8.9 g/dL 10/18/2025 11:18 PM EST [facility] Albumin 2.1(L) 3.5 - 5.7 g/dL 10/18/2025 11:18 PM EST [facility] Bilirubin, Indirect 0.49 0.00 - 1.10 mg/dL 10/18/2025 11:18 PM EST [facility] Plasma 10/18/2025 10:2 0 PM EST 10/18/2025 10:26 PM EST us Aspen Parr MD LAB BLOOD ORDERABLES Final Resul t [facility] [address] [place] [address], [facility] * (ABNORMAL) Renal Function Panel w/EGFR (10/18/2025 10:20 PM EST) Sodium 146 133 - 146 mmol/L 10/18/2025 11:05 PM EST [facility] Potassium 3.1(L) 3.5 - 5.3 mmol/L 10/18/2025 11:05 PM [facility] Chloride 113(H) 98 - 110 mmol/L 10/18/2025 11:05 PM [facility] CO2 24 21 - 33 mmol/L 10/18/2025 11:05 PM [facility] Comment:High lactate dehydro genase concentrations in patient samples may cause falsely increased bicarbonate results. If markedly elevated LDH is observed or suspected, please assess results in conjunction with patient`s clinical presentation. In cases of discrepant results, consider evaluating CO2 in with a blood gas order. Anion Gap 9 3 - 16 mmol/L 10/18/2025 11:05 PM EST [facility] BUN 32(H) 7 - 25 mg/dL 10/18/2025 11:05 PM [facility] Creatinine 1.09 0.60 - 1.30 mg/dL 10/18/2025 11:05 PM [facility] Glucose 129(H) 70 - 100 mg/dL 10/18/2025 11:05 PM [facility] Calcium 7.4(L) 8.6 - 10.3 mg/dL 10/18/2025 11:05 PM [facility] Phosphorus 4.0 2.1 - 4.7 mg/dL 10/18/2025 11:18 PM EST [facility] Albumin 2.1(L) 3.5 - 5.7 g/dL 10/18/2025 11:18 PM EST [facility] Osmolality, Calculated 311(H) 278 - 305 mOsm/kg 10/18/2025 11:05 PM EST [facility] EGFR 76 10/18/2025 11:05 PM EST [facility] Comment:As of 2022, the [...] ORDERABLES Final Resul t Performing Organization Address City/State/[facility] Co de Phone Number [facility] [address] * (ABNORMAL) Protime-INR (10/18/2025 10:20 PM EST) Protime 21.9(H) 12.1 - 15.1 seconds 10/18/2025 10:52 PM EST [facility] INR 1.8(H) 0.9 - 1.1 10/18/2025 10:52 PM EST [facility] Comment: RECOMMENDED THERAPEUTIC RANGES USING INR : Stable oral anticoagulant therapy: 2.0 - 3.0 Mechanical prosthetic heart valve: 2.5 - 3.5 Recurrent acute myocardial infarction: 2.5 - 3.5 Plasma 10/18/2025 10:2 0 PM EST 10/18/2025 10:26 PM EST Aspen Parr MD LAB BLOOD ORDERABLES Final Resul t Performing Organization Address City/[facility] Co de Phone Number [facility] [address] [id number], [facility] * (ABNORMAL) CBC (10/18/2025 10:20 PM EST) WBC 11.4(H) 3.8 - 10.8 10E3/uL 10/18/2025 10:59 PM EST [facility] RBC 2.92(L) 4.20 - 5.80 10E6/uL 10/18/2025 10:59 PM EST [facility] Hemoglobin 9.5(L) 13.2 - 17.1 g/dL 10/18/2025 10:59 PM EST [facility] Hematocrit 26.9(L) 38.5 - 50.0 % 10/18/2025 10:59 PM EST [facility] MCV 92.2 80.0 - 100.0 fL 10/18/2025 10:59 PM EST [facility] MCH 32.7 27.0 - 33.0 pg 10/18/2025 10:59 PM EST [facility] MCHC 35.4 32.0 - 36.0 g/dL 10/18/2025 10:59 PM EST [facility] RDW 18.3(H) 11.0 - 15.0 % 10/18/2025 10:59 PM EST [facility] Platelets 22(L) 140 - 400 10E3/uL 10/18/2025 10:59 PM EST [facility] Comment: CNV Specimen checked for clots. None detected. MPV 7.8 7.5 - 11.5 fL 10/18/2025 10:59 PM EST [facility] Whole Blood 10/18/2025 10:2 0 PM EST 10/18/2025 10:26 PM EST Aspen Parr MD LAB BLOOD ORDERABLES Final Resul t [facility] [address] * (ABNORMAL) POC Glucose Monitoring Device (10/18/2025 10:07 PM EST) POC Glucose Monitoring Device 134(H) 70 - 100 mg/dL 10/18/2025 10:08 PM EST [facility] Blood 10/18/2025 10:0 7 PM EST 10/18/2025 10:08 PM EST Vani Winkler MD POINT OF CARE TEST ORDERABLE S Final Result Performing Organization Address [facility] Co de Phone Number [facility] [address] [facility]. [address] * (ABNORMAL) POC Glucose Monitoring Device (10/18/2025 8:14 PM EST) POC Glucose Monitoring Device 138(H) 70 - 100 mg/dL 10/18/2025 8:15 PM EST [facility] Blood 10/18/2025 8:14 PM EST 10/18/2025 8:15 PM EST Vani Winkler MD POINT OF CARE TEST ORDERABLE S Final Result Performing Organization Address [facility] Co de Phone Number [facility] [address] [facility]. [address] * Lactic Acid (10/18/2025 5:47 PM EST) Lactate 0.7 0.5 - 2.2 mmol/L 10/18/2025 8:43 PM EST [facility] Plasma 10/18/2025 5:47 PM EST 10/18/2025 7:56 PM EST us Aspen Parr MD LAB BLOOD ORDERABLES Final Resul t Performing Organization Address City/[facility]/ZIP Co de Phone Number [facility] [address] [facility]. [address] * Magnesium (10/18/2025 5:47 PM EST) Magnesium 1.9 1.5 - 2.5 mg/dL 10/18/2025 6:40 PM EST [facility] Plasma 10/18/2025 5:47 PM EST 10/18/2025 5:54 PM EST Aspen Parr MD LAB BLOOD ORDERABLES Final Resul t Performing Organization Address [facility] Co de Phone Number [facility] [address] [facility]. [address] * (ABNORMAL) Hepatic Function Panel (10/18/2025 5:47 PM EST) Total Bilirubin 1.1 0.0 - 1.5 mg/dL 10/18/2025 6:40 PM EST [facility] Bilirubin, Direct 0.56(H) 0.00 - 0.40 mg/dL 10/18/2025 6:40 PM EST [facility] AST 965(H) 13 - 39 U/L 10/18/2025 6:40 PM EST [facility] ALT 871(H) 7 - 52 U/L 10/18/2025 6:40 PM EST [facility] Alkaline Phosphatase 61 36 - 125 U/L 10/18/2025 6:40 PM EST [facility] Total Protein 4.3(L) 6.4 - 8.9 g/dL 10/18/2025 6:40 PM EST [facility] Albumin 2.2(L) 3.5 - 5.7 g/dL 10/18/2025 6:40 PM EST [facility] Bilirubin, Indirect 0.54 0.00 - 1.10 mg/dL 10/18/2025 6:40 PM EST [facility] Plasma 10/18/2025 5:47 PM EST 10/18/2025 5:54 PM EST us Aspen Parr MD LAB BLOOD ORDERABLES Final Resul t Performing Organization Address City/[facility]/ZIP Co de Phone Number [facility] [address] [facility] * (ABNORMAL) Renal Function Panel w/EGFR (10/18/2025 5:47 PM EST) Sodium 144 133 - 146 mmol/L 10/18/2025 6:27 PM EST [facility] Potassium 3.4(L) 3.5 - 5.3 mmol/L 10/18/2025 6:27 PM [facility] Chloride 112(H) 98 - 110 mmol/L 10/18/2025 6:27 PM [facility] CO2 24 21 - 33 mmol/L 10/18/2025 6:27 PM [facility] Comment:High lactate dehydro genase concentrations in patient samples may cause falsely increased bicarbonate results. If markedly elevated LDH is observed or suspected, please assess results in conjunction with patient`s clinical presentation. In cases of discrepant results, consider evaluating CO2 in with a blood gas order. Anion Gap 8 3 - 16 mmol/L 10/18/2025 6:27 PM EST [facility] BUN 29(H) 7 - 25 mg/dL 10/18/2025 6:27 PM [facility] Creatinine 1.09 0.60 - 1.30 mg/dL 10/18/2025 6:27 PM [facility] Glucose 136(H) 70 - 100 mg/dL 10/18/2025 6:27 PM [facility] Calcium 7.5(L) 8.6 - 10.3 mg/dL 10/18/2025 6:27 PM [facility] Phosphorus 3.8 2.1 - 4.7 mg/dL 10/18/2025 6:40 PM [facility] Albumin 2.2(L) 3.5 - 5.7 g/dL 10/18/2025 6:40 PM [facility] Osmolality, Calculated 306(H) 278 - 305 mOsm/kg 10/18/2025 6:27 PM EST [facility] EGFR 76 10/18/2025 6:27 PM [facility] Comment:As of 2022, the estimated [...] Resul t Performing Organization Address [facility] [facility] Co de Phone Number [facility] [address] [facility]. [address] * (ABNORMAL) Protime-INR (10/18/2025 5:47 PM EST) Protime 21.8(H) 12.1 - 15.1 seconds 10/18/2025 6:13 PM EST [facility] INR 1.8(H) 0.9 - 1.1 10/18/2025 6:13 PM EST [facility] Comment: RECOMMENDED THERAPEUTIC RANGES USING INR : Stable oral anticoagulant therapy: 2.0 - 3.0 Mechanical prosthetic heart valve: 2.5 - 3.5 Recurrent acute myocardial infarction: 2.5 - 3.5 Plasma 10/18/2025 5:47 PM EST 10/18/2025 5:54 PM EST us Aspen Parr MD LAB BLOOD ORDERABLES Final Resul t Performing Organization Address [facility]/ZIP Co de Phone Number [facility] [address] [facility]. [address] * (ABNORMAL) CBC (10/18/2025 5:47 PM EST) WBC 11.8(H) 3.8 - 10.8 10E3/uL 10/18/2025 6:06 PM EST [facility] RBC 3.06(L) 4.20 - 5.80 10E6/uL 10/18/2025 6:06 PM EST [facility] Hemoglobin 10.0(L) 13.2 - 17.1 g/dL 10/18/2025 6:06 PM EST [facility] Hematocrit 28.3(L) 38.5 - 50.0 % 10/18/2025 6:06 PM EST [facility] MCV 92.5 80.0 - 100.0 fL 10/18/2025 6:06 PM EST [facility] MCH 32.5 27.0 - 33.0 pg 10/18/2025 6:06 PM EST [facility] MCHC 35.2 32.0 - 36.0 g/dL 10/18/2025 6:06 PM EST [facility] RDW 18.6(H) 11.0 - 15.0 % 10/18/2025 6:06 PM EST [facility] Platelets 22(L) 140 - 400 10E3/uL 10/18/2025 6:06 PM EST [facility] Comment: CNV Specimen checked for clots. None detected. MPV 7.7 7.5 - 11.5 fL 10/18/2025 6:06 PM EST [facility] Whole Blood 10/18/2025 5:47 PM EST 10/18/2025 5:54 PM EST Aspen Parr MD LAB BLOOD ORDERABLES Final Resul t Performing Organization Address City/[facility]/ZIP Co de Phone Number [facility] [address] * (ABNORMAL) POC Glucose Monitoring Device (10/18/2025 5:45 PM EST) POC Glucose Monitoring Device 135(H) 70 - 100 mg/dL 10/18/2025 5:46 PM EST [facility] Blood 10/18/2025 5:45 PM EST 10/18/2025 5:46 PM EST Vani Winkler MD POINT OF CARE TEST ORDERABLE S Final Result [facility] [address] [facility]. [address] * (ABNORMAL) POC Glucose Monitoring Device (10/18/2025 3:06 PM EST) POC Glucose Monitoring Device 128(H) 70 - 100 mg/dL 10/18/2025 3:07 PM EST [facility] Blood 10/18/2025 3:06 PM EST 10/18/2025 3:07 PM EST Vani Winkler MD POINT OF CARE TEST ORDERABLE S Final Result [facility] [address] * (ABNORMAL) POC Glucose Monitoring Device (10/18/2025 1:15 PM EST) POC Glucose Monitoring Device 128(H) 70 - 100 mg/dL 10/18/2025 1:15 PM EST [facility] Blood 10/18/2025 1:15 PM EST 10/18/2025 1:15 PM EST Vani Winkler MD POINT OF CARE TEST ORDERABLE S Final Result Performing Organization Address City/[facility]/ZIP Co de Phone Number [facility] [address] [facility]. [address] * (ABNORMAL) POC Glucose Monitoring Device (10/18/2025 12:12 PM EST) POC Glucose Monitoring Device 124(H) 70 - 100 mg/dL 10/18/2025 12:13 PM EST [facility] Blood 10/18/2025 12:1 2 PM EST 10/18/2025 12:13 PM EST Vani Winkler MD POINT OF CARE TEST ORDERABLE S Final Result [facility] [address] [facility]. [address] * Prepare Fresh Frozen Plasma (10/18/2025 11:58 AM EST) Product Code [id number] HCLL Unit Number [id number] HCLL Dispense Status Released from Crossmatch_RE HCLL Blood Expiration Date HCLL Coding System [id number] HCLL Product Code H6394Z50 HCLL Unit Number [id number] HCLL Dispense Status Released from Crossmatch_RE HCLL Blood Expiration Date HCLL Coding System [id number] HCLL Product Code F5529W07 HCLL Unit Number [id number] HCLL Dispense Status Released from Crossmatch_RE HCLL Blood Expiration Date HCLL Coding System [id number] HCLL Product Code Y5832K61 HCLL Unit Number [id number] HCLL Dispense Status Released from Crossmatch_RE HCLL Blood Expiration Date HCLL Coding System LEJF126 HCLL Product Code L5314B16 HCLL Unit Number [id number] HCLL Dispense Status Released from Crossmatch_RE HCLL Blood Expiration Date HCLL Coding System [id number] HCLL us Attending Provider Unknown BLOOD BANK PRODUCT OR DERABLES Final Result HCLL * Lactic Acid (10/18/2025 11:21 AM EST) Lactate 0.7 0.5 - 2.2 mmol/L 10/18/2025 12:05 PM EST [facility] Plasma 10/18/2025 11:2 1 AM EST 10/18/2025 11:25 AM EST Aspen Parr MD LAB BLOOD ORDERABLES Final Resul t [facility] [address] [place] [address], [facility] * Magnesium (10/18/2025 11:21 AM EST) Magnesium 2.0 1.5 - 2.5 mg/dL 10/18/2025 12:23 PM EST [facility] Plasma 10/18/2025 11:2 1 AM EST 10/18/2025 11:25 AM EST Aspen Parr MD LAB BLOOD ORDERABLES Final Resul t Performing Organization Address City/[facility]/ZIP Co de Phone Number [facility] [address] * (ABNORMAL) Hepatic Function Panel (10/18/2025 11:21 AM EST) Total Bilirubin 1.3 0.0 - 1.5 mg/dL 10/18/2025 12:23 PM EST [facility] Bilirubin, Direct 0.74(H) 0.00 - 0.40 mg/dL 10/18/2025 12:23 PM EST [facility] AST 1,689(H) 13 - 39 U/L 10/18/2025 12:23 PM EST [facility] ALT 1034(H) 7 - 52 U/L 10/18/2025 12:23 PM EST [facility] Alkaline Phosphatase 60 36 - 125 U/L 10/18/2025 12:23 PM EST [facility] Total Protein 4.3(L) 6.4 - 8.9 g/dL 10/18/2025 12:23 PM EST [facility] Albumin 2.3(L) 3.5 - 5.7 g/dL 10/18/2025 12:23 PM EST [facility] Bilirubin, Indirect 0.56 0.00 - 1.10 mg/dL 10/18/2025 12:23 PM EST [facility] Plasma 10/18/2025 11:2 1 AM EST 10/18/2025 11:25 AM EST us Aspen Parr MD LAB BLOOD ORDERABLES Final Resul t Performing Organization Address City/[facility]/ZIP Co de Phone Number [facility] [address] * (ABNORMAL) Renal Function Panel w/EGFR (10/18/2025 11:21 AM EST) Sodium 146 133 - 146 mmol/L 10/18/2025 12:06 PM [facility] Potassium 3.9 3.5 - 5.3 mmol/L 10/18/2025 12:06 PM [facility] Chloride 114(H) 98 - 110 mmol/L 10/18/2025 12:06 PM [facility] CO2 25 21 - 33 mmol/L 10/18/2025 12:06 PM [facility] Comment:High lactate dehydro genase concentrations in patient samples may cause falsely increased bicarbonate results. If markedly elevated LDH is observed or suspected, please assess results in conjunction with patient`s clinical presentation. In cases of discrepant results, consider evaluating CO2 in with a blood gas order. Anion Gap 7 3 - 16 mmol/L 10/18/2025 12:06 PM [facility] BUN 26(H) 7 - 25 mg/dL 10/18/2025 12:06 PM [facility] Creatinine 1.01 0.60 - 1.30 mg/dL 10/18/2025 12:06 PM [facility] Glucose 113(H) 70 - 100 mg/dL 10/18/2025 12:06 PM [facility] Calcium 7.8(L) 8.6 - 10.3 mg/dL 10/18/2025 12:06 PM [facility] Phosphorus 3.1 2.1 - 4.7 mg/dL 10/18/2025 12:23 PM [facility] Albumin 2.3(L) 3.5 - 5.7 g/dL 10/18/2025 12:23 PM [facility] Osmolality, Calculated 308(H) 278 - 305 mOsm/kg 10/18/2025 12:06 PM [facility] EGFR 83 10/18/2025 12:06 PM [facility] Comment:As of 2022, the estimated [...] Resul t Performing Organization Address [facility] Co de Phone Number [facility] [address] [facility]. [address] * (ABNORMAL) Protime-INR (10/18/2025 11:21 AM EST) Protime 23.6(H) 12.1 - 15.1 seconds 10/18/2025 11:44 AM EST [facility] INR 2.0(H) 0.9 - 1.1 10/18/2025 11:44 AM EST [facility] Comment: RECOMMENDED THERAPEUTIC RANGES USING INR : Stable oral anticoagulant therapy: 2.0 - 3.0 Mechanical prosthetic heart valve: 2.5 - 3.5 Recurrent acute myocardial infarction: 2.5 - 3.5 Plasma 10/18/2025 11:2 1 AM EST 10/18/2025 11:25 AM EST Aspen Parr MD LAB BLOOD ORDERABLES Final Resul t Performing Organization Address City/[facility]/ZIP Co de Phone Number [facility] [address] [facility]. [address] * (ABNORMAL) CBC (10/18/2025 11:21 AM EST) WBC 10.9(H) 3.8 - 10.8 10E3/uL 10/18/2025 11:44 AM EST [facility] RBC 3.10(L) 4.20 - 5.80 10E6/uL 10/18/2025 11:44 AM EST [facility] Hemoglobin 10.2(L) 13.2 - 17.1 g/dL 10/18/2025 11:44 AM EST [facility] Hematocrit 29.0(L) 38.5 - 50.0 % 10/18/2025 11:44 AM EST [facility] MCV 93.7 80.0 - 100.0 fL 10/18/2025 11:44 AM EST [facility] MCH 32.9 27.0 - 33.0 pg 10/18/2025 11:44 AM EST [facility] MCHC 35.1 32.0 - 36.0 g/dL 10/18/2025 11:44 AM EST [facility] RDW 18.4(H) 11.0 - 15.0 % 10/18/2025 11:44 AM EST [facility] Platelets 29(L) 140 - 400 10E3/uL 10/18/2025 11:44 AM EST [facility] Comment:CNV MPV 7.6 7.5 - 11.5 fL 10/18/2025 11:44 AM EST [facility] Whole Blood 10/18/2025 11:2 1 AM EST 10/18/2025 11:25 AM EST us Aspen Parr MD LAB BLOOD ORDERABLES Final Resul t [facility] [address] * (ABNORMAL) POC Glucose Monitoring Device (10/18/2025 11:04 AM EST) POC Glucose Monitoring Device 121(H) 70 - 100 mg/dL 10/18/2025 11:05 AM EST [facility] Blood 10/18/2025 11:0 4 AM EST 10/18/2025 11:05 AM EST us Vani Winkler MD POINT OF CARE TEST ORDERABLE S Final Result [facility] [address] * (ABNORMAL) POC Glucose Monitoring Device (10/18/2025 10:29 AM EST) POC Glucose Monitoring Device 120(H) 70 - 100 mg/dL 10/18/2025 10:34 AM EST [facility] Blood 10/18/2025 10:2 9 AM EST 10/18/2025 10:34 AM EST us Vani Winkler MD POINT OF CARE TEST ORDERABLE S Final Result [facility] [address] [place] [address], [facility] * US Duplex Tjv-Tux-Pemixca Comp (10/18/2025 9:35 AM EST) Anatomical Region [...] EXAM: US ABDOMEN LIMITED EXAM: US DUPLEX [id number] COMPLETE INDICATION: Post-op liver transplant Day 1 [...] EXAM: US ABDOMEN LIMITED EXAM: US DUPLEX [id number] COMPLETE INDICATION: Post-op liver transplant Day 1 [...] 10/18/2025 9:53 AM EST Aspen Parr MD [facility] US ORDERABLES Final Result * US Abdomen [...] EXAM: US ABDOMEN LIMITED EXAM: US DUPLEX [id number] COMPLETE INDICATION: Post-op liver transplant Day 1 [...] EXAM: US ABDOMEN LIMITED EXAM: US DUPLEX [id number] COMPLETE INDICATION: Post-op liver transplant Day 1 [...] 9:53 AM EST Aspen Parr MD [facility] ORDERABLES Final Result * (ABNORMAL) POC Glucose Monitoring Device (10/18/2025 9:11 AM EST) POC Glucose Monitoring Device 165(H) 70 - 100 mg/dL 10/18/2025 9:13 AM EST [facility] Blood 10/18/2025 9:11 AM EST 10/18/2025 9:12 AM EST Vani Winkler MD POINT OF CARE TEST ORDERABLE S Final Result Performing Organization Address City/[facility]/ZIP Co de Phone Number [facility] [address] * (ABNORMAL) POC Glucose Monitoring Device (10/18/2025 7:56 AM EST) POC Glucose Monitoring Device 179(H) 70 - 100 mg/dL 10/18/2025 7:57 AM EST [facility] Blood 10/18/2025 7:56 AM EST 10/18/2025 7:57 AM EST Vani Winkler MD POINT OF CARE TEST ORDERABLE S Final Result [facility] [address] * (ABNORMAL) POC Glucose Monitoring Device (10/18/2025 6:59 AM EST) POC Glucose Monitoring Device 187(H) 70 - 100 mg/dL 10/18/2025 7:00 AM EST [facility] Blood 10/18/2025 6:59 AM EST 10/18/2025 7:00 AM EST us Vani Winkler MD POINT OF CARE TEST ORDERABLE S Final Result [facility] [address] [place] [address], [facility] * X-ray Portable Chest (10/18/2025 [...] below level of diaphragms and outside the dwbac-[id number]-wjpd. Right internal jugular approach pulmonary artery catheter [...] courses below level of diaphragms andoutside the dmqwx-bq-jbff. Right internal jugular approach pulmonaryartery catheter projects [...] Units (10/18/2025 6:17 AM EST) Product Code [id number] HCLL Unit Number [id number] HCLL Dispense Status Presumed Transfused_PT HCLL Blood Expiration Date HCLL Coding System [id number] HCLL Blood Bank Product Oskar Torres MD BLOOD BANK PRODUCT ORDERABLES Final Result Performing Organization Address City/[facility] Co de Phone Number HCLL * Prepare Platelets, leukoreduced, 2 Units (10/18/2025 6:17 AM EST) Product Code RG407D12 HCLL Unit Number [id number] HCLL Dispense Status Presumed Transfused_PT HCLL Blood Expiration Date HCLL Coding System ZLPV885 HCLL Product Code W9058R15 HCLL Unit Number [id number] HCLL Dispense Status Presumed Transfused_PT HCLL Blood Expiration Date [id number] HCLL Coding System [id number] HCLL Blood Bank Product us Slade Munoz MD BLOOD BANK PRODUCT ORDERABLES Fi nal Result HCLL * Prepare RBC, leukoreduced, 5 Units (10/18/2025 6:16 AM EST) Product Code J8672W52 HCLL Unit Number [id number] HCLL Dispense Status Presumed Transfused_PT HCLL Blood Expiration Date HCLL Coding System IJDB799 HCLL Product Code G5677Y23 HCLL Unit Number [id number] HCLL Dispense Status Presumed Transfused_PT HCLL Blood Expiration Date HCLL Coding System HWJA139 HCLL Product Code W0677S81 HCLL Unit Number [id number] HCLL Dispense Status Presumed Transfused_PT HCLL Blood Expiration Date HCLL Coding System TZTV509 HCLL Product Code L9857C58 HCLL Unit Number [id number] HCLL Dispense Status Released from Crossmatch_RE HCLL Blood Expiration Date HCLL Coding System GVAR754 HCLL Product Code K5885D39 HCLL Unit Number [id number] HCLL Dispense Status Presumed Transfused_PT HCLL Blood Expiration Date HCLL Coding System WFFG316 HCLL Blood Bank Product Kassi INTERIANO BLOOD BANK PRODUCT ORDERABLES Final Result Performing Organization Address [facility] Co de Phone Number HCLL * Prepare Cryoprecipitate (10/18/2025 6:15 AM EST) Product Code D4977W48 HCLL Unit Number [id number] HCLL Dispense Status Presumed Transfused_PT HCLL Blood Expiration Date HCLL Coding System YJSG604 HCLL Attending Provider Unknown BLOOD BANK PRODUCT OR DERABLES Final Result Performing Organization Address City/[facility] Co de Phone Number HCLL * Prepare Cryoprecipitate, 1 Units (10/18/2025 6:15 AM EST) Product Code D3255J98 HCLL Unit Number [id number] HCLL Dispense Status Presumed Transfused_PT HCLL Blood Expiration Date HCLL Coding System SKVC349 HCLL Blood Bank Product Oskar Torres MD BLOOD BANK PRODUCT ORDERABLES Final Result Performing Organization Address [facility]/ZIP Co de Phone Number HCLL * Prepare Cryoprecipitate, 1 Units (10/18/2025 6:15 AM EST) Product Code X3925O49 HCLL Unit Number [id number] HCLL Dispense Status Presumed Transfused_PT HCLL Blood Expiration Date HCLL Coding System GOVO741 HCLL Product Code S7260Z72 HCLL Unit Number [id number] HCLL Dispense Status Presumed Transfused_PT HCLL Blood Expiration Date HCLL Coding System VHIU645 HCLL Blood Bank Product Shannan Salas MD BLOOD BANK PRODUCT ORDERABLE S Final Result Performing Organization Address [facility] Co de Phone Number HCLL * Prepare Cryoprecipitate, 1 Units (10/18/2025 6:15 AM EST) Product Code U5971N81 HCLL Unit Number [id number] HCLL Dispense Status Presumed Transfused_PT HCLL Blood Expiration Date HCLL Coding System YNCR270 HCLL Blood Bank Product Slade Munoz MD BLOOD BANK PRODUCT ORDERABLES Fi nal Result Performing Organization Address [facility] de Phone Number HCLL * Prepare Cryoprecipitate, 1 Units (10/18/2025 6:15 AM EST) Product Code L6593P70 HCLL Unit Number [id number] HCLL Dispense Status Presumed Transfused_PT HCLL Blood Expiration Date HCLL Coding System QHSY751 HCLL Blood Bank Product Slade Munoz MD BLOOD BANK PRODUCT ORDERABLES Fi nal Result Performing Organization Address City/[facility]/ZIP Co de Phone Number HCLL * Prepare RBC, leukoreduced (10/18/2025 6:15 AM EST) Product Code E3410S07 HCLL Unit Number [id number] HCLL Dispense Status Released from Crossmatch_RE HCLL Blood Expiration Date HCLL Coding System XDPV802 HCLL Product Code N8461F48 HCLL Unit Number [id number] HCLL Dispense Status Released from Crossmatch_RE HCLL Blood Expiration Date HCLL Coding System HWFI873 HCLL Product Code P4047Y17 HCLL Unit Number [id number] HCLL Dispense Status Released from Crossmatch_RE HCLL Blood Expiration Date HCLL Coding System RZHX006 HCLL Product Code V8045V76 HCLL Unit Number [id number] HCLL Dispense Status Released from Crossmatch_RE HCLL Blood Expiration Date HCLL Coding System CLYK319 HCLL Product Code M4605R74 HCLL Unit Number [id number] HCLL Dispense Status Presumed Transfused_PT HCLL Blood Expiration Date HCLL Coding System XKDA577 HCLL us Attending Provider Unknown BLOOD BANK PRODUCT OR DERABLES Final Result HCLL * Prepare Fresh Frozen Plasma, 5 Units (10/18/2025 6:15 AM EST) Product Code T2928H94 HCLL Unit Number [id number] HCLL Dispense Status Presumed Transfused_PT HCLL Blood Expiration Date HCLL Coding System AMMM383 HCLL Product Code J8276C27 HCLL Unit Number [id number] HCLL Dispense Status Presumed Transfused_PT HCLL Blood Expiration Date HCLL Coding System YMYC298 HCLL Product Code X8577S42 HCLL Unit Number [id number] HCLL Dispense Status Presumed Transfused_PT HCLL Blood Expiration Date HCLL Coding System XYWX504 HCLL Product Code W5713W57 HCLL Unit Number [id number] HCLL Dispense Status Presumed Transfused_PT HCLL Blood Expiration Date HCLL Coding System BVJE580 HCLL Product Code W5902F17 HCLL Unit Number [id number] HCLL Dispense Status Presumed Transfused_PT HCLL Blood Expiration Date HCLL Coding System KVXC571 HCLL Blood Bank Product Kassi INTERIANO BLOOD BANK PRODUCT ORDERABLES Final Result HCLL * (ABNORMAL) POC Glucose Monitoring Device (10/18/2025 6:06 AM EST) POC Glucose Monitoring Device 214(H) 70 - 100 mg/dL 10/18/2025 6:06 AM EST [facility] Blood 10/18/2025 6:06 AM EST 10/18/2025 6:06 AM EST Vani Winkler MD POINT OF CARE TEST ORDERABLE S Final Result [facility] [address] * (ABNORMAL) Blood gas, arterial (10/18/2025 5:19 AM EST) O2 Sat, Arterial 97 10/18/2025 5:28 AM EST [facility] FIO2 40 10/18/2025 5:28 AM EST [facility] pH, Arterial 7.34(L) 7.35 - 7.45 10/18/2025 5:28 AM EST [facility] pCO2, Arterial 48(H) 35 - 45 mm Hg 10/18/2025 5:28 AM EST [facility] pO2, Arterial 84 80 - 100 mm Hg 10/18/2025 5:28 AM EST [facility] HCO3, Arterial 25 22 - 26 mmol/L 10/18/2025 5:28 AM EST [facility] CO2 Content,Arteri al 27 23 - 27 mmol/L 10/18/2025 5:28 AM EST [facility] Base Excess, Arterial -0.2 -2.0 - 3.0 mmol/L 10/18/2025 5:28 AM EST [facility] %HBO2, Arterial 94.1(L) 95.0 - 98.0 % 10/18/2025 5:28 AM EST [facility] Carboxyhemoglo bin, Arterial 2.5 % 10/18/2025 5:28 AM EST [facility] Comment: CARBOXYHEMOGLOBIN (CO) REFERENCE RANGES: Non-Smokers: <2 % Smokers: <8 % TOXIC: >20 % Methemoglobin, Arterial 0.5 0.0 - 1.5 % 10/18/2025 5:28 AM EST [facility] Blood, Arterial 10/18/2025 5 :19 AM EST 10/18/2025 5:25 AM EST Vani Winkler MD LAB BLOOD ORDERABLES Final R esult Performing Organization Address City/[facility]/ZIP Co de Phone Number [facility] [address] [facility]. [address] * Lactic Acid (10/18/2025 5:02 AM EST) Lactate 1.0 0.5 - 2.2 mmol/L 10/18/2025 5:47 AM EST [facility] Plasma 10/18/2025 5:02 AM EST 10/18/2025 5:09 AM EST Aspen Parr MD LAB BLOOD ORDERABLES Final Resul t [facility] [address] * Magnesium (10/18/2025 5:02 AM EST) Magnesium 2.0 1.5 - 2.5 mg/dL 10/18/2025 6:05 AM EST [facility] Plasma 10/18/2025 5:02 AM EST 10/18/2025 5:13 AM EST Aspen Parr MD LAB BLOOD ORDERABLES Final Resul t Performing Organization Address [facility] de Phone Number [facility] [address] [facility]. [address] * (ABNORMAL) Hepatic Function Panel (10/18/2025 5:02 AM EST) Total Bilirubin 1.5 0.0 - 1.5 mg/dL 10/18/2025 6:05 AM EST [facility] Bilirubin, Direct 0.77(H) 0.00 - 0.40 mg/dL 10/18/2025 6:05 AM EST [facility] AST 2,612(H) 13 - 39 U/L 10/18/2025 6:05 AM EST [facility] ALT 1072(H) 7 - 52 U/L 10/18/2025 6:05 AM EST [facility] Alkaline Phosphatase 50 36 - 125 U/L 10/18/2025 6:05 AM EST [facility] Total Protein 4.0(L) 6.4 - 8.9 g/dL 10/18/2025 6:05 AM EST [facility] Albumin 2.2(L) 3.5 - 5.7 g/dL 10/18/2025 6:05 AM EST [facility] Bilirubin, Indirect 0.73 0.00 - 1.10 mg/dL 10/18/2025 6:05 AM EST [facility] Plasma 10/18/2025 5:02 AM EST 10/18/2025 5:13 AM EST Aspen Parr MD LAB BLOOD ORDERABLES Final Resul t Performing Organization Address [facility] Co de Phone Number [facility] [address] [facility]. [address] * (ABNORMAL) Renal Function Panel w/EGFR (10/18/2025 5:02 AM EST) Sodium 146 133 - 146 mmol/L 10/18/2025 6:05 AM EST [facility] Potassium 3.4(L) 3.5 - 5.3 mmol/L 10/18/2025 6:05 AM EST [facility] Chloride 111(H) 98 - 110 mmol/L 10/18/2025 6:05 AM EST [facility] CO2 26 21 - 33 mmol/L 10/18/2025 6:05 AM [facility] Comment:High lactate dehydro genase concentrations in patient samples may cause falsely increased bicarbonate results. If markedly elevated LDH is observed or suspected, please assess results in conjunction with patient`s clinical presentation. In cases of discrepant results, consider evaluating CO2 in with a blood gas order. Anion Gap 9 3 - 16 mmol/L 10/18/2025 6:05 AM [facility] BUN 22 7 - 25 mg/dL 10/18/2025 6:05 AM [facility] Creatinine 0.93 0.60 - 1.30 mg/dL 10/18/2025 6:05 AM [facility] Glucose 193(H) 70 - 100 mg/dL 10/18/2025 6:05 AM [facility] Calcium 7.8(L) 8.6 - 10.3 mg/dL 10/18/2025 6:05 AM [facility] Phosphorus 3.0 2.1 - 4.7 mg/dL 10/18/2025 6:05 AM [facility] Albumin 2.2(L) 3.5 - 5.7 g/dL 10/18/2025 6:05 AM [facility] Osmolality, Calculated 311(H) 278 - 305 mOsm/kg 10/18/2025 6:05 AM [facility] EGFR >90 10/18/2025 6:05 AM [facility] Comment: As of 2022, [...] Resul t Performing Organization Address [facility] de Phone Number [facility] [address] [facility]. [address] * (ABNORMAL) Protime-INR (10/18/2025 5:02 AM EST) Protime 26.0(H) 12.1 - 15.1 seconds 10/18/2025 5:32 AM EST [facility] INR 2.2(H) 0.9 - 1.1 10/18/2025 5:32 AM EST [facility] Comment: RECOMMENDED THERAPEUTIC RANGES USING INR : Stable oral anticoagulant therapy: 2.0 - 3.0 Mechanical prosthetic heart valve: 2.5 - 3.5 Recurrent acute myocardial infarction: 2.5 - 3.5 Plasma 10/18/2025 5:02 AM EST 10/18/2025 5:13 AM EST Aspen Parr MD LAB BLOOD ORDERABLES Final Resul t Performing Organization Address [facility] de Phone Number [facility] [address] [facility]. [address] * (ABNORMAL) CBC (10/18/2025 5:02 AM EST) WBC 7.0 3.8 - 10.8 10E3/uL 10/18/2025 5:27 AM EST [facility] RBC 2.94(L) 4.20 - 5.80 10E6/uL 10/18/2025 5:27 AM EST [facility] Hemoglobin 9.6(L) 13.2 - 17.1 g/dL 10/18/2025 5:27 AM EST [facility] Hematocrit 27.6(L) 38.5 - 50.0 % 10/18/2025 5:27 AM EST [facility] MCV 94.0 80.0 - 100.0 fL 10/18/2025 5:27 AM EST [facility] MCH 32.6 27.0 - 33.0 pg 10/18/2025 5:27 AM EST [facility] MCHC 34.7 32.0 - 36.0 g/dL 10/18/2025 5:27 AM EST [facility] RDW 19.0(H) 11.0 - 15.0 % 10/18/2025 5:27 AM EST [facility] Platelets 36(L) 140 - 400 10E3/uL 10/18/2025 5:27 AM EST [facility] Comment:CNV MPV 8.1 7.5 - 11.5 fL 10/18/2025 5:27 AM EST [facility] Whole Blood 10/18/2025 5:02 AM EST 10/18/2025 5:13 AM EST Aspen Parr MD LAB BLOOD ORDERABLES Final Resul t [facility] [address] * (ABNORMAL) POC Glucose Monitoring Device (10/18/2025 5:00 AM EST) POC Glucose Monitoring Device 231(H) 70 - 100 mg/dL 10/18/2025 5:06 AM EST [facility] Blood 10/18/2025 5:00 AM EST 10/18/2025 5:06 AM EST Vani Winkler MD POINT OF CARE TEST ORDERABLE S Final Result [facility] [address] * (ABNORMAL) POC Glucose Monitoring Device (10/18/2025 4:05 AM EST) POC Glucose Monitoring Device 244(H) 70 - 100 mg/dL 10/18/2025 4:06 AM EST [facility] Blood 10/18/2025 4:05 AM EST 10/18/2025 4:06 AM EST Vani Winkler MD POINT OF CARE TEST ORDERABLE S Final Result Performing Organization Address City/[facility]/ZIP Co de Phone Number [facility] [address] [facility]. [address] * (ABNORMAL) POC Glucose Monitoring Device (10/18/2025 3:02 AM EST) POC Glucose Monitoring Device 246(H) 70 - 100 mg/dL 10/18/2025 3:07 AM EST [facility] Blood 10/18/2025 3:02 AM EST 10/18/2025 3:07 AM EST Vani Winkler MD POINT OF CARE TEST ORDERABLE S Final Result Performing Organization Address [facility] Co de Phone Number [facility] [address] [facility]. [address] * (ABNORMAL) POC Glucose Monitoring Device (10/18/2025 2:05 AM EST) POC Glucose Monitoring Device 249(H) 70 - 100 mg/dL 10/18/2025 2:14 AM EST [facility] Blood 10/18/2025 2:05 AM EST 10/18/2025 2:14 AM EST Vani Winkler MD POINT OF CARE TEST ORDERABLE S Final Result Performing Organization Address City/[facility]/ZIP Co de Phone Number [facility] [address] [facility]. [address] * (ABNORMAL) POC Glucose Monitoring Device (10/18/2025 1:06 AM EST) POC Glucose Monitoring Device 237(H) 70 - 100 mg/dL 10/18/2025 1:07 AM EST [facility] Blood 10/18/2025 1:06 AM EST 10/18/2025 1:07 AM EST Vani Winkler MD POINT OF CARE TEST ORDERABLE S Final Result Performing Organization Address City/[facility]/ZIP Co de Phone Number [facility] [address] * (ABNORMAL) POC Glucose Monitoring Device (10/17/2025 11:55 PM EST) POC Glucose Monitoring Device 227(H) 70 - 100 mg/dL 10/18/2025 12:06 AM EST [facility] Blood 10/17/2025 11:5 5 PM EST 10/18/2025 12:06 AM EST Vani Winkler MD POINT OF CARE TEST ORDERABLE S Final Result Performing Organization Address [facility] de Phone Number [facility] [address] [facility]. [address] * XR Portable Feeding Tube Check [...] 11:50 PM EST us Aspen Parr MD [facility] ORDERABLE S Final Result * [...] PM EST 10/17/2025 10:55 PM EST Narrative [facility] - 10/17/2025 11:15 PM EST This test has been developed and its performance characteristics determined by [facility] which is certified under the [...] El MD LAB BLOOD ORDERABLES Final Result [facility] [address] [place], [place] [address] * (ABNORMAL) TEG-Standard Global Hemostasis (Rapid TEG with Heparin Effect, Contains a Baseline TEG) (10/17/2025 10:50 PM EST) [facility] Citrated Kaolin Reaction Time (TEGHEPARINASE) 12.7(H) 4.6 - 9.1 minutes 10/18/2025 12:03 AM EST [facility] Citrated Rapid Teg Maximum Amplitude (TEGHEPARINASE) 47.8(L) 52.0 - 70.0 mm 10/18/2025 12:03 AM EST [facility] Citrated Functional Fibrinogen Maximum Amplitude (TEGHEPARINASE) 16.8 15.0 - 32.0 mm 10/18/2025 12:03 AM EST [facility] Citrated Kaolin W/Heparinase Reaction Time (TEGHEPARINASE) 11.0(H) 4.3 - 8.3 minutes 10/18/2025 12:03 AM EST [facility] Citrated Kaolin K-Time (TEGHEPARINASE) 4.9(H) 0.8 - 2.1 minutes 10/18/2025 12:03 AM EST [facility] Citrated Kaolin Angle (TEGHEPARINASE) 40.0(L) 63.0 - 78.0 degrees 10/18/2025 12:03 AM EST [facility] Citrated Kaolin Maximum Amplitude (TEGHEPARINASE) 45.2(L) 52.0 - 69.0 mm 10/18/2025 12:03 AM EST [facility] Citrated Functional Fibrinogen- Fibrinogen Level (TEGHEPARINASE) 306.6 278.0 - 581.0 mg/dL 10/18/2025 12:03 AM EST [facility] Whole Blood (Citrate) 10/17/2025 10:50 PM EST 10/17/2025 10:55 PM EST us Aspen Parr MD LAB BLOOD ORDERABLES Final Resul t [facility] [address] [facility]. [address] * Lactic Acid (10/17/2025 10:50 PM EST) Lactate 1.1 0.5 - 2.2 mmol/L 10/17/2025 11:51 PM EST [facility] Plasma 10/17/2025 10:5 0 PM EST 10/17/2025 10:55 PM EST us Aspen Parr MD LAB BLOOD ORDERABLES Final Resul t Performing Organization Address City/[facility] Co de Phone Number [facility] [address] [place] [address]. [address] * Fibrinogen (10/17/2025 10:50 PM EST) Fibrinogen 253 218 - 406 mg/dL 10/17/2025 11:06 PM EST [facility] Plasma 10/17/2025 10:5 0 PM EST 10/17/2025 10:55 PM EST Aspen Parr MD LAB BLOOD ORDERABLES Final Resul t Performing Organization Address City/[facility] Co de Phone Number [facility] [address] [place] [address] * (ABNORMAL) Protime-INR (10/17/2025 10:50 PM EST) Protime 25.2(H) 12.1 - 15.1 seconds 10/17/2025 11:06 PM EST [facility] INR 2.1(H) 0.9 - 1.1 10/17/2025 11:06 PM EST [facility] Comment: RECOMMENDED THERAPEUTIC RANGES USING INR : Stable oral anticoagulant therapy: 2.0 - 3.0 Mechanical prosthetic heart valve: 2.5 - 3.5 Recurrent acute myocardial infarction: 2.5 - 3.5 Plasma 10/17/2025 10:5 0 PM EST 10/17/2025 10:55 PM EST us Aspen Parr MD LAB BLOOD ORDERABLES Final Resul t [facility] [address] [place] [address], [facility] * (ABNORMAL) Blood gas, arterial (10/17/2025 10:50 PM EST) O2 Sat, Arterial 100 10/17/2025 11:00 PM [facility] FIO2 80 fio2 10/17/2025 11:00 PM [facility] pH, Arterial 7.38 7.35 - 7.45 10/17/2025 11:00 PM [facility] pCO2, Arterial 41 35 - 45 mm Hg 10/17/2025 11:00 PM [facility] pO2, Arterial 216(H) 80 - 100 mm Hg 10/17/2025 11:00 PM [facility] HCO3, Arterial 24 22 - 26 mmol/L 10/17/2025 11:00 PM [facility] CO2 Content,Arteri al 26 23 - 27 mmol/L 10/17/2025 11:00 PM [facility] Base Excess, Arterial -0.8 -2.0 - 3.0 mmol/L 10/17/2025 11:00 PM [facility] %HBO2, Arterial 95.2 95.0 - 98.0 % 10/17/2025 11:00 PM [facility] Carboxyhemoglo bin, Arterial 3.3 % 10/17/2025 11:00 PM EST [facility] Comment: CARBOXYHEMOGLOBIN (CO) REFERENCE RANGES: Non-Smokers: <2 % Smokers: <8 % TOXIC: >20 % Methemoglobin, Arterial 1.6(H) 0.0 - 1.5 % 10/17/2025 11:00 PM [facility] Blood, Arterial 10/17/2025 1 0:50 PM EST 10/17/2025 10:55 PM EST Aspen Parr MD LAB BLOOD ORDERABLES Final Resul t Performing Organization Address City/[facility]/ZIP Co de Phone Number [facility] [address] * Magnesium (10/17/2025 10:50 PM EST) Magnesium 1.8 1.5 - 2.5 mg/dL 10/18/2025 12:13 AM EST [facility] Plasma 10/17/2025 10:5 0 PM EST 10/17/2025 10:55 PM EST Aspen Parr MD LAB BLOOD ORDERABLES Final Resul t Performing Organization Address City/[facility] Co de Phone Number [facility] [address] * (ABNORMAL) Hepatic Function Panel (10/17/2025 10:50 PM EST) Total Bilirubin 4.5(H) 0.0 - 1.5 mg/dL 10/18/2025 12:13 AM EST [facility] Bilirubin, Direct 3.22(H) 0.00 - 0.40 mg/dL 10/18/2025 12:13 AM EST [facility] AST 3,332(H) 13 - 39 U/L 10/18/2025 12:13 AM EST [facility] ALT 1141(H) 7 - 52 U/L 10/18/2025 12:13 AM EST [facility] Alkaline Phosphatase 63 36 - 125 U/L 10/18/2025 12:13 AM EST [facility] Total Protein 4.0(L) 6.4 - 8.9 g/dL 10/18/2025 12:13 AM EST [facility] Albumin 2.2(L) 3.5 - 5.7 g/dL 10/18/2025 12:13 AM EST [facility] Bilirubin, Indirect 1.28(H) 0.00 - 1.10 mg/dL 10/18/2025 12:13 AM EST [facility] Plasma 10/17/2025 10:5 0 PM EST 10/17/2025 10:55 PM EST us Aspen Parr MD LAB BLOOD ORDERABLES Final Resul t [facility] [address] [place], [place] [address] * (ABNORMAL) Renal Function Panel w/EGFR (10/17/2025 10:50 PM EST) Sodium 145 133 - 146 mmol/L 10/18/2025 12:13 AM EST [facility] Potassium 3.7 3.5 - 5.3 mmol/L 10/18/2025 12:13 AM EST [facility] Chloride 110 98 - 110 mmol/L 10/18/2025 12:13 AM [facility] CO2 27 21 - 33 mmol/L 10/18/2025 12:13 AM EST [facility] Comment:High lactate dehydro genase concentrations in patient samples may cause falsely increased bicarbonate results. If markedly elevated LDH is observed or suspected, please assess results in conjunction with patient`s clinical presentation. In cases of discrepant results, consider evaluating CO2 in with a blood gas order. Anion Gap 8 3 - 16 mmol/L 10/18/2025 12:13 AM EST [facility] BUN 17 7 - 25 mg/dL 10/18/2025 12:13 AM EST [facility] Creatinine 0.79 0.60 - 1.30 mg/dL 10/18/2025 12:13 AM [facility] Glucose 225(H) 70 - 100 mg/dL 10/18/2025 12:13 AM EST [facility] Calcium 8.2(L) 8.6 - 10.3 mg/dL 10/18/2025 12:13 AM [facility] Phosphorus 3.9 2.1 - 4.7 mg/dL 10/18/2025 12:13 AM EST [facility] Albumin 2.2(L) 3.5 - 5.7 g/dL 10/18/2025 12:13 AM EST [facility] Osmolality, Calculated 309(H) 278 - 305 mOsm/kg 10/18/2025 12:13 AM EST [facility] EGFR >90 10/18/2025 12:13 AM EST [facility] Comment: As of 2022, [...] ORDERABLES Final Resul t Performing Organization Address City/State/[facility] Co de Phone Number [facility] [address] * (ABNORMAL) CBC (10/17/2025 10:50 PM EST) WBC 5.8 3.8 - 10.8 10E3/uL 10/17/2025 11:03 PM EST [facility] RBC 2.93(L) 4.20 - 5.80 10E6/uL 10/17/2025 11:03 PM EST [facility] Hemoglobin 9.5(L) 13.2 - 17.1 g/dL 10/17/2025 11:03 PM EST [facility] Hematocrit 27.5(L) 38.5 - 50.0 % 10/17/2025 11:03 PM EST [facility] MCV 93.9 80.0 - 100.0 fL 10/17/2025 11:03 PM EST [facility] MCH 32.6 27.0 - 33.0 pg 10/17/2025 11:03 PM EST [facility] MCHC 34.7 32.0 - 36.0 g/dL 10/17/2025 11:03 PM EST [facility] RDW 18.1(H) 11.0 - 15.0 % 10/17/2025 11:03 PM EST [facility] Platelets 52(L) 140 - 400 10E3/uL 10/17/2025 11:03 PM EST [facility] MPV 7.1(L) 7.5 - 11.5 fL 10/17/2025 11:03 PM EST [facility] Whole Blood 10/17/2025 10:5 0 PM EST 10/17/2025 10:55 PM EST Aspen Parr MD LAB BLOOD ORDERABLES Final Resul t [facility] [address] * (ABNORMAL) POC Glucose Monitoring Device (10/17/2025 10:47 PM EST) POC Glucose Monitoring Device 234(H) 70 - 100 mg/dL 10/17/2025 10:48 PM EST [facility] Blood 10/17/2025 10:4 7 PM EST 10/17/2025 10:47 PM EST Vani Winkler MD POINT OF CARE TEST ORDERABLE S Final Result [facility] [address] * POC Sample Type (10/17/2025 9:25 PM EST) POC Sample Type Arterial 10/17/2025 9:51 PM EST [facility] Blood, Arterial 10/17/2025 9 :25 PM EST 10/17/2025 9:51 PM EST Vani Winkler MD POINT OF CARE TEST ORDERABLE S Final Result [facility] [address] [facility]. [address] * POC Anion Gap (10/17/2025 9:25 PM EST) POC Anion Gap, Arterial 9 3 - 16 mmol/L 10/17/2025 9:51 PM EST [facility] Blood, Arterial 10/17/2025 9 :25 PM EST 10/17/2025 9:51 PM EST Vani Winkler MD POINT OF CARE TEST ORDERABLE S Final Result Performing Organization Address City/[facility]/ZIP Co de Phone Number [facility] [address] [facility]. [address] * (ABNORMAL) POC Chloride (10/17/2025 9:25 PM EST) POC Chloride 111(H) 98 - 110 mmol/L 10/17/2025 9:51 PM EST [facility] Blood, Arterial 10/17/2025 9 :25 PM EST 10/17/2025 9:51 PM EST Vani Winkler MD POINT OF CARE TEST ORDERABLE S Final Result [facility] [address] [facility]. [address] * (ABNORMAL) POC Hemoglobin (10/17/2025 9:25 PM EST) POC Hemoglobin 9.0(L) 14.0 - 18.0 g/dL 10/17/2025 9:51 PM EST [facility] Blood, Arterial 10/17/2025 9 :25 PM EST 10/17/2025 9:51 PM EST Vani Winkler MD POINT OF CARE TEST ORDERABLE S Final Result Performing Organization Address City/[facility]/ZIP Co de Phone Number [facility] [address] * (ABNORMAL) POC hematocrit (10/17/2025 9:25 PM EST) POC Hematocrit 26.0(L) 40 - 52 % 10/17/2025 9:51 PM EST [facility] Blood, Arterial 10/17/2025 9 :25 PM EST 10/17/2025 9:51 PM EST us Vani Winkler MD POINT OF CARE TEST ORDERABLE S Final Result Performing Organization Address [facility] Co de Phone Number [facility] [address] [facility]. [address] * POC Lactate (10/17/2025 9:25 PM EST) POC Lactate 1.50 0.50 - 2.20 mmol/L 10/17/2025 9:51 PM EST [facility] Blood, Arterial 10/17/2025 9 :25 PM EST 10/17/2025 9:51 PM EST Vani Winkler MD POINT OF CARE TEST ORDERABLE S Final Result Performing Organization Address City/[facility]/ZIP Co de Phone Number [facility] [address] [facility]. [address] * (ABNORMAL) POC Glucose (10/17/2025 9:25 PM EST) POC Glucose, Arterial 227(H) 70 - 100 mg/dL 10/17/2025 9:51 PM EST [facility] Blood, Arterial 10/17/2025 9 :25 PM EST 10/17/2025 9:51 PM EST Vani Winkler MD POINT OF CARE TEST ORDERABLE S Final Result [facility] [address] * POC Ionized Calcium (10/17/2025 9:25 PM EST) POC Ionized Calcium 4.90 4.50 - 5.30 mg/dL 10/17/2025 9:51 PM EST [facility] Blood, Arterial 10/17/2025 9 :25 PM EST 10/17/2025 9:51 PM EST Vani Winkler MD POINT OF CARE TEST ORDERABLE S Final Result Performing Organization Address City/[facility]/ZIP Co de Phone Number [facility] [address] * POC Potassium (10/17/2025 9:25 PM EST) POC Potassium 3.7 3.5 - 5.3 mmol/L 10/17/2025 9:51 PM EST [facility] Blood, Arterial 10/17/2025 9 :25 PM EST 10/17/2025 9:51 PM EST Vani Winkler MD POINT OF CARE TEST ORDERABLE S Final Result Performing Organization Address City/[facility]/ZIP Co de Phone Number [facility] [address] [facility]. [address] * POC Sodium (10/17/2025 9:25 PM EST) POC Sodium 142 136 - 146 mmol/L 10/17/2025 9:51 PM EST [facility] Blood, Arterial 10/17/2025 9 :25 PM EST 10/17/2025 9:51 PM EST Vani Winkler MD POINT OF CARE TEST ORDERABLE S Final Result [facility] [address] * POC TCO2 (10/17/2025 9:25 PM EST) POC TCO2, Arterial 23 23 - 27 mmol/L 10/17/2025 9:51 PM EST [facility] Blood, Arterial 10/17/2025 9 :25 PM EST 10/17/2025 9:51 PM EST Vani Winkler MD POINT OF CARE TEST ORDERABLE S Final Result [facility] [address] [facility]. [address] * (ABNORMAL) POC O2 SAT (10/17/2025 9:25 PM EST) POC O2 Saturation, Arterial 99(H) 95 - 98 % 10/17/2025 9:51 PM EST [facility] Blood, Arterial 10/17/2025 9 :25 PM EST 10/17/2025 9:51 PM EST Vani Winkler MD POINT OF CARE TEST ORDERABLE S Final Result Performing Organization Address City/[facility]/ZIP Co de Phone Number [facility] [address] [facility]. [address] * (ABNORMAL) POC Base Excess (10/17/2025 9:25 PM EST) POC Base Excess, Arterial -3(L) -2 - 3 mmol/L 10/17/2025 9:51 PM EST [facility] Blood, Arterial 10/17/2025 9 :25 PM EST 10/17/2025 9:51 PM EST Vani Winkler MD POINT OF CARE TEST ORDERABLE S Final Result [facility] [address] [facility] * POC HCO3 (10/17/2025 9:25 PM EST) POC HCO3, Arterial 22 22 - 26 mmol/L 10/17/2025 9:51 PM EST [facility] Blood, Arterial 10/17/2025 9 :25 PM EST 10/17/2025 9:51 PM EST Vani Winkler MD POINT OF CARE TEST ORDERABLE S Final Result [facility] [address] [facility]. [address] * (ABNORMAL) POC PO2 (10/17/2025 9:25 PM EST) POC pO2, Arterial 161(H) 80 - 100 mm Hg 10/17/2025 9:51 PM EST [facility] Blood, Arterial 10/17/2025 9 :25 PM EST 10/17/2025 9:51 PM EST Vani Winkler MD POINT OF CARE TEST ORDERABLE S Final Result [facility] [address] [facility] * POC PCO2 (10/17/2025 9:25 PM EST) POC pCO2, Arterial 38 35 - 45 mm Hg 10/17/2025 9:51 PM EST [facility] Blood, Arterial 10/17/2025 9 :25 PM EST 10/17/2025 9:51 PM EST Vani Winkler MD POINT OF CARE TEST ORDERABLE S Final Result [facility] [address] [facility]. [address] * POC pH (10/17/2025 9:25 PM EST) POC pH, Arterial 7.37 7.35 - 7.45 10/17/2025 9:51 PM EST [facility] Blood, Arterial 10/17/2025 9 :25 PM EST 10/17/2025 9:51 PM EST Result [facility] Vani Winkler MD POINT OF CARE TEST ORDERABLE S Final Result Performing Organization Address [facility] Co de Phone Number [facility] [address] [facility]. [address] * (ABNORMAL) POC INR (10/17/2025 9:24 PM EST) [facility] Prothrombin Time INR, POC 2.3(H) 0.8 - [...] ORDERABLE S Final Result Performing Organization Address City/[facility] Co de Phone Number [facility] [address] * Transfuse Fresh Frozen Plasma (10/17/2025 9:17 PM EST) Result [facility] Shannan Salas MD NURSING TREATMENT ORDERABLES - BLOOD ADMIN Final Result * Transfuse Platelets (10/17/2025 9:01 PM EST) Slade Munoz MD NURSING TREATMENT ORDERABLES - B LOOD ADMIN Final Result * Transfuse Cryoprecipitate (10/17/2025 8:49 PM EST) Result [facility] Slade Munoz MD NURSING TREATMENT ORDERABLES - B LOOD ADMIN Final Result * Transfuse Cryoprecipitate (10/17/2025 8:46 PM EST) Result [facility] Slade Munoz MD NURSING TREATMENT ORDERABLES - B LOOD ADMIN Final Result * (ABNORMAL) TEG-Bypass/ECMO/Liver HN (Factor function, Platelet/Fibrin Clot Strength w/Clot Breakdown, Heparinase In All Channels) (10/17/2025 8:31 PM EST) Citrated Kaolin Reaction Time (TEGECMOLIVER) 9.7(H) 4.6 - 9.1 minutes 10/17/2025 10:13 PM EST [facility] Citrated Kaolin W/Heparinase Reaction Time (TEGECMOLIVER) 3.4(L) 4.3 - 8.3 minutes 10/17/2025 10:13 PM EST [facility] Citrated Kaolin Maximum Amplitude (TEGECMOLIVER) 45.4(L) 52.0 - 69.0 mm 10/17/2025 10:13 PM EST [facility] Citrated Functional Fibrinogen W/Heparinase Maximum Amplitude(TEGEC MOLIVER) 18.0 15.0 - 34.0 mm 10/17/2025 10:13 PM EST [facility] Citrated Rapid Teg W/Heparinase Maximum Amplitude (TEGECMOLIVER) 40.5(L) 53.0 - 69.0 mm 10/17/2025 10:13 PM EST [facility] Citrated Kaolin w/Heparinase Percent Lysis (TEGECMOLIVER) 0.0 0.0 - 3.2 % 10/17/2025 10:13 PM EST [facility] Whole Blood (Citrate) 10/17/2025 8:31 PM EST 10/17/2025 8:40 PM EST Oskar Torres MD LAB BLOOD ORDERABLES Final Re sult [facility] [address] * (ABNORMAL) Fibrinogen (10/17/2025 8:31 PM EST) Fibrinogen 157(L) 218 - 406 mg/dL 10/17/2025 9:00 PM EST [facility] Plasma 10/17/2025 8:31 PM EST 10/17/2025 8:40 PM EST Oskar Torres MD LAB BLOOD ORDERABLES Final Re sult [facility] [address] * POC Sample Type (10/17/2025 8:22 PM EST) POC Sample Type Arterial 10/17/2025 8:24 PM EST [facility] Blood, Arterial 10/17/2025 8 :22 PM EST 10/17/2025 8:24 PM EST Vani Winkler MD POINT OF CARE TEST ORDERABLE S Final Result Performing Organization Address City/[facility]/ZIP Co de Phone Number [facility] [address] * POC Anion Gap (10/17/2025 8:22 PM EST) POC Anion Gap, Arterial 11 3 - 16 mmol/L 10/17/2025 8:24 PM EST [facility] Blood, Arterial 10/17/2025 8 :22 PM EST 10/17/2025 8:24 PM EST Vani Winkler MD POINT OF CARE TEST ORDERABLE S Final Result Performing Organization Address City/[facility]/ZIP Co de Phone Number [facility] [address] * POC Chloride (10/17/2025 8:22 PM EST) POC Chloride 108 98 - 110 mmol/L 10/17/2025 8:24 PM EST [facility] Blood, Arterial 10/17/2025 8 :22 PM EST 10/17/2025 8:24 PM EST Vani Winkler MD POINT OF CARE TEST ORDERABLE S Final Result [facility] [address] * (ABNORMAL) POC Hemoglobin (10/17/2025 8:22 PM EST) POC Hemoglobin 9.5(L) 14.0 - 18.0 g/dL 10/17/2025 8:24 PM EST [facility] Blood, Arterial 10/17/2025 8 :22 PM EST 10/17/2025 8:24 PM EST Vani Winkler MD POINT OF CARE TEST ORDERABLE S Final Result [facility] [address] [facility]. [address] * (ABNORMAL) POC hematocrit (10/17/2025 8:22 PM EST) [facility] POC Hematocrit 28.0(L) 40 - 52 % 10/17/2025 8:24 PM EST [facility] Blood, Arterial 10/17/2025 8 :22 PM EST 10/17/2025 8:24 PM EST Vani Winkler MD POINT OF CARE TEST ORDERABLE S Final Result Performing Organization Address City/[facility]/ZIP Co de Phone Number [facility] [address] [facility]. [address] * POC Lactate (10/17/2025 8:22 PM EST) Pathologist [facility] POC Lactate 1.62 0.50 - 2.20 mmol/L 10/17/2025 8:24 PM EST [facility] Blood, Arterial 10/17/2025 8 :22 PM EST 10/17/2025 8:24 PM EST Vani Winkler MD POINT OF CARE TEST ORDERABLE S Final Result [facility] [address] [facility]. [address] * (ABNORMAL) POC Glucose (10/17/2025 8:22 PM EST) POC Glucose, Arterial 218(H) 70 - 100 mg/dL 10/17/2025 8:24 PM EST [facility] Blood, Arterial 10/17/2025 8 :22 PM EST 10/17/2025 8:24 PM EST Vani Winkler MD POINT OF CARE TEST ORDERABLE S Final Result [facility] [address] [facility]. [address] * POC Ionized Calcium (10/17/2025 8:22 PM EST) Pathologist [facility] POC Ionized Calcium 4.80 4.50 - 5.30 mg/dL 10/17/2025 8:24 PM EST [facility] Blood, Arterial 10/17/2025 8 :22 PM EST 10/17/2025 8:24 PM EST Vani Winkler MD POINT OF CARE TEST ORDERABLE S Final Result Performing Organization Address City/[facility]/ZIP Co de Phone Number [facility] [address] [facility]. [address] * POC Potassium (10/17/2025 8:22 PM EST) [facility] POC Potassium 3.8 3.5 - 5.3 mmol/L 10/17/2025 8:24 PM EST [facility] Blood, Arterial 10/17/2025 8 :22 PM EST 10/17/2025 8:24 PM EST Vani Winkler MD POINT OF CARE TEST ORDERABLE S Final Result [facility] [address] [facility]. [address] * POC Sodium (10/17/2025 8:22 PM EST) Pathologist [facility] POC Sodium 143 136 - 146 mmol/L 10/17/2025 8:24 PM EST [facility] Blood, Arterial 10/17/2025 8 :22 PM EST 10/17/2025 8:24 PM EST Vani Winkler MD POINT OF CARE TEST ORDERABLE S Final Result [facility] [address] [facility]. [address] * POC TCO2 (10/17/2025 8:22 PM EST) POC TCO2, Arterial 25 23 - 27 mmol/L 10/17/2025 8:24 PM EST [facility] Blood, Arterial 10/17/2025 8 :22 PM EST 10/17/2025 8:24 PM EST Vani Winkler MD POINT OF CARE TEST ORDERABLE S Final Result Performing Organization Address City/[facility]/ZIP Co de Phone Number [facility] [address] [facility]. [address] * (ABNORMAL) POC O2 SAT (10/17/2025 8:22 PM EST) POC O2 Saturation, Arterial 99(H) 95 - 98 % 10/17/2025 8:24 PM EST [facility] Blood, Arterial 10/17/2025 8 :22 PM EST 10/17/2025 8:24 PM EST Vani Winkler MD POINT OF CARE TEST ORDERABLE S Final Result [facility] [address] [facility]. [address] * POC Base Excess (10/17/2025 8:22 PM EST) POC Base Excess, Arterial -1 -2 - 3 mmol/L 10/17/2025 8:24 PM EST [facility] Blood, Arterial 10/17/2025 8 :22 PM EST 10/17/2025 8:24 PM EST us Vani Winkler MD POINT OF CARE TEST ORDERABLE S Final Result Performing Organization Address City/[facility]/ZIP Co de Phone Number [facility] [address] [facility]. [address] * POC HCO3 (10/17/2025 8:22 PM EST) POC HCO3, Arterial 24 22 - 26 mmol/L 10/17/2025 8:24 PM EST [facility] Blood, Arterial 10/17/2025 8 :22 PM EST 10/17/2025 8:24 PM EST us Vani Winkler MD POINT OF CARE TEST ORDERABLE S Final Result Performing Organization Address [facility] Co de Phone Number [facility] [address] [facility]. [address] * (ABNORMAL) POC PO2 (10/17/2025 8:22 PM EST) POC pO2, Arterial 131(H) 80 - 100 mm Hg 10/17/2025 8:24 PM EST [facility] Blood, Arterial 10/17/2025 8 :22 PM EST 10/17/2025 8:24 PM EST us Vani Winkler MD POINT OF CARE TEST ORDERABLE S Final Result Performing Organization Address City/[facility] Co de Phone Number [facility] [address] [facility]. [address] * POC PCO2 (10/17/2025 8:22 PM EST) POC pCO2, Arterial 41 35 - 45 mm Hg 10/17/2025 8:24 PM EST [facility] Blood, Arterial 10/17/2025 8 :22 PM EST 10/17/2025 8:24 PM EST us Vani Winkler MD POINT OF CARE TEST ORDERABLE S Final Result [facility] [address] * POC pH (10/17/2025 8:22 PM EST) POC pH, Arterial 7.37 7.35 - 7.45 10/17/2025 8:24 PM EST [facility] Blood, Arterial 10/17/2025 8 :22 PM EST 10/17/2025 8:24 PM EST Result [facility] Vani Winkler MD POINT OF CARE TEST ORDERABLE S Final Result [facility] [address] [facility]. [address] * (ABNORMAL) POC INR (10/17/2025 8:21 PM EST) Prothrombin Time INR, POC 2.9(H) 0.8 - 1.4 10/18/2025 12:08 AM EST [facility] Comment: Test results may vary using different testing platforms. Serial result monitoring should be performed using the same methodology. RECOMMENDED THERAPEUTIC RANGES USING INR : Stable oral anticoagulant therapy: 2.0 - 3.0 Mechanical prosthetic heart valve: 2.5 - 3.5 Recurrent acute myocardial infarction: 2.5 - 3.5 Blood 10/17/2025 8:21 PM EST 10/18/2025 12:07 AM EST us aVni Winkler MD POINT OF CARE TEST ORDERABLE S Final Result [facility] [address] * Transfuse Fresh Frozen Plasma (10/17/2025 [...] Sample Type Arterial 10/17/2025 7:30 PM EST [facility] Blood, Arterial 10/17/2025 7 :26 PM EST 10/17/2025 7:30 PM EST us Vani Winkler MD POINT OF CARE TEST ORDERABLE S Final Result Performing Organization Address [facility] Co de Phone Number [facility] [address] [place] [address]. [address] * POC Anion Gap (10/17/2025 7:26 PM EST) POC Anion Gap, Arterial 11 3 - 16 mmol/L 10/17/2025 7:30 PM EST [facility] Blood, Arterial 10/17/2025 7 :26 PM EST 10/17/2025 7:30 PM EST Result [facility] us Vani Winkler MD POINT OF CARE TEST ORDERABLE S Final Result Performing Organization Address [facility] Co de Phone Number [facility] [address] [place] [address]. [address] * POC Chloride (10/17/2025 7:26 PM EST) POC Chloride 109 98 - 110 mmol/L 10/17/2025 7:30 PM EST [facility] Blood, Arterial 10/17/2025 7 :26 PM EST 10/17/2025 7:30 PM EST us Vani Winkler MD POINT OF CARE TEST ORDERABLE S Final Result [facility] [address] * (ABNORMAL) POC Hemoglobin (10/17/2025 7:26 PM EST) POC Hemoglobin 8.6(L) 14.0 - 18.0 g/dL 10/17/2025 7:30 PM EST [facility] Blood, Arterial 10/17/2025 7 :26 PM EST 10/17/2025 7:30 PM EST Vani Winkler MD POINT OF CARE TEST ORDERABLE S Final Result Performing Organization Address [facility] Co de Phone Number [facility] [address] * (ABNORMAL) POC hematocrit (10/17/2025 7:26 PM EST) POC Hematocrit 25.0(L) 40 - 52 % 10/17/2025 7:30 PM EST [facility] Blood, Arterial 10/17/2025 7 :26 PM EST 10/17/2025 7:30 PM EST Vani Winkler MD POINT OF CARE TEST ORDERABLE S Final Result Performing Organization Address [facility]/ZIP Co de Phone Number [facility] [address] * POC Lactate (10/17/2025 7:26 PM EST) POC Lactate 2.16 0.50 - 2.20 mmol/L 10/17/2025 7:30 PM EST [facility] Blood, Arterial 10/17/2025 7 :26 PM EST 10/17/2025 7:30 PM EST Vani Winkler MD POINT OF CARE TEST ORDERABLE S Final Result Performing Organization Address City/[facility]/ZIP Co de Phone Number [facility] [address] * (ABNORMAL) POC Glucose (10/17/2025 7:26 PM EST) POC Glucose, Arterial 207(H) 70 - 100 mg/dL 10/17/2025 7:30 PM EST [facility] Blood, Arterial 10/17/2025 7 :26 PM EST 10/17/2025 7:30 PM EST Vani Winkler MD POINT OF CARE TEST ORDERABLE S Final Result [facility] [address] * (ABNORMAL) POC Ionized Calcium (10/17/2025 7:26 PM EST) POC Ionized Calcium 5.40(H) 4.50 - 5.30 mg/dL 10/17/2025 7:30 PM EST [facility] Blood, Arterial 10/17/2025 7 :26 PM EST 10/17/2025 7:30 PM EST Vani Winkler MD POINT OF CARE TEST ORDERABLE S Final Result Performing Organization Address City/[facility]/ZIP Co de Phone Number [facility] [address] * POC Potassium (10/17/2025 7:26 PM EST) POC Potassium 3.9 3.5 - 5.3 mmol/L 10/17/2025 7:30 PM EST [facility] Blood, Arterial 10/17/2025 7 :26 PM EST 10/17/2025 7:30 PM EST Vani Winkler MD POINT OF CARE TEST ORDERABLE S Final Result [facility] [address] * POC Sodium (10/17/2025 7:26 PM EST) POC Sodium 143 136 - 146 mmol/L 10/17/2025 7:30 PM EST [facility] Blood, Arterial 10/17/2025 7 :26 PM EST 10/17/2025 7:30 PM EST Vani Winkler MD POINT OF CARE TEST ORDERABLE S Final Result [facility] [address] [facility]. [address] * POC TCO2 (10/17/2025 7:26 PM EST) POC TCO2, Arterial 24 23 - 27 mmol/L 10/17/2025 7:30 PM EST [facility] Blood, Arterial 10/17/2025 7 :26 PM EST 10/17/2025 7:30 PM EST Vani Winkler MD POINT OF CARE TEST ORDERABLE S Final Result Performing Organization Address City/[facility]/ZIP Co de Phone Number [facility] [address] [facility]. [address] * (ABNORMAL) POC O2 SAT (10/17/2025 7:26 PM EST) POC O2 Saturation, Arterial 99(H) 95 - 98 % 10/17/2025 7:30 PM EST [facility] Blood, Arterial 10/17/2025 7 :26 PM EST 10/17/2025 7:30 PM EST Vani Winkler MD POINT OF CARE TEST ORDERABLE S Final Result [facility] [address] [facility]. [address] * POC Base Excess (10/17/2025 7:26 PM EST) POC Base Excess, Arterial -2 -2 - 3 mmol/L 10/17/2025 7:30 PM EST [facility] Blood, Arterial 10/17/2025 7 :26 PM EST 10/17/2025 7:30 PM EST Vani Winkler MD POINT OF CARE TEST ORDERABLE S Final Result Performing Organization Address City/[facility]/ZIP Co de Phone Number [facility] [address] [place] [address]. [address] * POC HCO3 (10/17/2025 7:26 PM EST) POC HCO3, Arterial 23 22 - 26 mmol/L 10/17/2025 7:30 PM EST [facility] Blood, Arterial 10/17/2025 7 :26 PM EST 10/17/2025 7:30 PM EST Vani Winkler MD POINT OF CARE TEST ORDERABLE S Final Result Performing Organization Address City/[facility] Co de Phone Number [facility] [address] [facility]. [address] * (ABNORMAL) POC PO2 (10/17/2025 7:26 PM EST) POC pO2, Arterial 156(H) 80 - 100 mm Hg 10/17/2025 7:30 PM EST [facility] Blood, Arterial 10/17/2025 7 :26 PM EST 10/17/2025 7:30 PM EST Vani Winkler MD POINT OF CARE TEST ORDERABLE S Final Result Performing Organization Address City/[facility]/ZIP Co de Phone Number [facility] [address] [place] [address]. [address] * POC PCO2 (10/17/2025 7:26 PM EST) POC pCO2, Arterial 40 35 - 45 mm Hg 10/17/2025 7:30 PM EST [facility] Blood, Arterial 10/17/2025 7 :26 PM EST 10/17/2025 7:30 PM EST Result [facility] Vani Winkler MD POINT OF CARE TEST ORDERABLE S Final Result [facility] [address] * POC pH (10/17/2025 7:26 PM EST) POC pH, Arterial 7.37 7.35 - 7.45 10/17/2025 7:30 PM EST [facility] Blood, Arterial 10/17/2025 7 :26 PM EST 10/17/2025 7:30 PM EST Result [facility] Vani Winkler MD POINT OF CARE TEST ORDERABLE S Final Result Performing Organization Address [facility] Co de Phone Number [facility] [address] * (ABNORMAL) POC INR (10/17/2025 7:25 PM EST) Prothrombin Time INR, POC 5.9(HH) 0.8 - 1.4 10/18/2025 12:07 AM EST [facility] Comment: Test results may vary using different testing platforms. Serial result monitoring should be performed using the same methodology. RECOMMENDED THERAPEUTIC RANGES USING INR : Stable oral anticoagulant therapy: 2.0 - 3.0 Mechanical prosthetic heart valve: 2.5 - 3.5 Recurrent acute myocardial infarction: 2.5 - 3.5 Blood 10/17/2025 7:25 PM EST 10/18/2025 12:07 AM EST Result [facility] Vani Winkler MD POINT OF CARE TEST ORDERABLE S Final Result [facility] [address] * Transfuse Platelets (10/17/2025 7:03 PM EST) Result [facility] Slade Munoz MD NURSING TREATMENT ORDERABLES - B LOOD ADMIN Final Result * (ABNORMAL) TEG-Bypass/ECMO/Liver HN (Factor function, Platelet/Fibrin Clot Strength w/Clot Breakdown, Heparinase In All Channels) (10/17/2025 6:39 PM EST) Citrated Kaolin Reaction Time (TEGECMOLIVER) 7.1 4.6 - 9.1 minutes 10/17/2025 8:07 PM EST [facility] Citrated Kaolin W/Heparinase Reaction Time (TEGECMOLIVER) 2.5(L) 4.3 - 8.3 minutes 10/17/2025 8:07 PM EST [facility] Citrated Kaolin Maximum Amplitude (TEGECMOLIVER) 41.6(L) 52.0 - 69.0 mm 10/17/2025 8:07 PM EST [facility] Citrated Functional Fibrinogen W/Heparinase Maximum Amplitude(TEGEC MOLIVER) 20.9 15.0 - 34.0 mm 10/17/2025 8:07 PM EST [facility] Citrated Rapid Teg W/Heparinase Maximum Amplitude (TEGECMOLIVER) 30.9(L) 53.0 - 69.0 mm 10/17/2025 8:07 PM [facility] Citrated Kaolin w/Heparinase Percent Lysis (TEGECMOLIVER) 0.0 0.0 - 3.2 % 10/17/2025 8:07 PM [facility] Whole Blood (Citrate) 10/17/2025 6:39 PM EST 10/17/2025 6:45 PM EST Shannan Salas MD LAB BLOOD ORDERABLES Final R esult [facility] [address] * (ABNORMAL) CBC (10/17/2025 6:39 PM EST) WBC 4.8 3.8 - 10.8 10E3/uL 10/17/2025 6:54 PM EST [facility] RBC 3.19(L) 4.20 - 5.80 10E6/uL 10/17/2025 6:54 PM EST [facility] Hemoglobin 10.3(L) 13.2 - 17.1 g/dL 10/17/2025 6:54 PM EST [facility] Hematocrit 30.2(L) 38.5 - 50.0 % 10/17/2025 6:54 PM EST [facility] MCV 94.8 80.0 - 100.0 fL 10/17/2025 6:54 PM EST [facility] MCH 32.3 27.0 - 33.0 pg 10/17/2025 6:54 PM EST [facility] MCHC 34.1 32.0 - 36.0 g/dL 10/17/2025 6:54 PM EST [facility] RDW 17.8(H) 11.0 - 15.0 % 10/17/2025 6:54 PM EST [facility] Platelets 47(L) 140 - 400 10E3/uL 10/17/2025 6:54 PM EST [facility] Comment:CNV MPV 7.7 7.5 - 11.5 fL 10/17/2025 6:54 PM EST [facility] Whole Blood 10/17/2025 6:39 PM EST 10/17/2025 6:45 PM EST Shannan Salas MD LAB BLOOD ORDERABLES Final R esult [facility] [address] * (ABNORMAL) Protime-INR (10/17/2025 6:39 PM EST) Protime 69.5(HH) 12.1 - 15.1 seconds 10/17/2025 7:30 PM EST [facility] Comment:The critical result was called to, and read back by, licensed caregiver ROSALIND HAWK RN, AT 1930 INR 7.5(HH) 0.9 - 1.1 10/17/2025 7:30 PM EST [facility] Comment: RECOMMENDED THERAPEUTIC RANGES USING [...] MD LAB BLOOD ORDERABLES Final R esult [facility] [address] [facility]. [address] * (ABNORMAL) Fibrinogen (10/17/2025 6:39 PM EST) Pathologist [facility] Fibrinogen 159(L) 218 - 406 mg/dL 10/17/2025 7:04 PM EST [facility] Plasma 10/17/2025 6:39 PM EST 10/17/2025 6:45 PM EST us Shannan Salas MD LAB BLOOD ORDERABLES Final R esult [facility] [address] [facility]. [address] * Transfuse Cryoprecipitate (10/17/2025 6:31 PM EST) Slade Munoz MD NURSING TREATMENT ORDERABLES - B LOOD ADMIN Final Result * POC Sample Type (10/17/2025 6:23 PM EST) [facility] POC Sample Type Arterial 10/17/2025 6:25 PM EST [facility] Blood, Arterial 10/17/2025 6 :23 PM EST 10/17/2025 6:25 PM EST Vani Winkler MD POINT OF CARE TEST ORDERABLE S Final Result [facility] [address] [place] [address]. [address] * POC Anion Gap (10/17/2025 6:23 PM EST) Pathologist [facility] POC Anion Gap, Arterial 13 3 - 16 mmol/L 10/17/2025 6:25 PM EST [facility] Blood, Arterial 10/17/2025 6 :23 PM EST 10/17/2025 6:25 PM EST Vani Winkler MD POINT OF CARE TEST ORDERABLE S Final Result [facility] [address] [facility]. [address] * POC Chloride (10/17/2025 6:23 PM EST) POC Chloride 110 98 - 110 mmol/L 10/17/2025 6:25 PM EST [facility] Blood, Arterial 10/17/2025 6 :23 PM EST 10/17/2025 6:25 PM EST Vani Winkler MD POINT OF CARE TEST ORDERABLE S Final Result Performing Organization Address City/[facility]/ZIP Co de Phone Number [facility] [address] [facility]. [address] * (ABNORMAL) POC Hemoglobin (10/17/2025 6:23 PM EST) Pathologist [facility] POC Hemoglobin 9.8(L) 14.0 - 18.0 g/dL 10/17/2025 6:25 PM EST [facility] Blood, Arterial 10/17/2025 6 :23 PM EST 10/17/2025 6:25 PM EST Vani Winkler MD POINT OF CARE TEST ORDERABLE S Final Result [facility] [address] [facility]. [address] * (ABNORMAL) POC hematocrit (10/17/2025 6:23 PM EST) Pathologist [facility] POC Hematocrit 29.0(L) 40 - 52 % 10/17/2025 6:25 PM EST [facility] Blood, Arterial 10/17/2025 6 :23 PM EST 10/17/2025 6:25 PM EST Vani Winkler MD POINT OF CARE TEST ORDERABLE S Final Result Performing Organization Address City/[facility]/ZIP Co de Phone Number [facility] [address] [place] [address]. [address] * (ABNORMAL) POC Lactate (10/17/2025 6:23 PM EST) POC Lactate 3.26(H) 0.50 - 2.20 mmol/L 10/17/2025 6:25 PM EST [facility] Blood, Arterial 10/17/2025 6 :23 PM EST 10/17/2025 6:25 PM EST Vani Winkler MD POINT OF CARE TEST ORDERABLE S Final Result Performing Organization Address [facility] Co de Phone Number [facility] [address] [place] [address]. [address] * (ABNORMAL) POC Glucose (10/17/2025 6:23 PM EST) POC Glucose, Arterial 170(H) 70 - 100 mg/dL 10/17/2025 6:25 PM EST [facility] Blood, Arterial 10/17/2025 6 :23 PM EST 10/17/2025 6:25 PM EST Vani Winkler MD POINT OF CARE TEST ORDERABLE S Final Result Performing Organization Address City/[facility]/ZIP Co de Phone Number [facility] [address] [place] [address]. [address] * (ABNORMAL) POC Ionized Calcium (10/17/2025 6:23 PM EST) POC Ionized Calcium 6.00(H) 4.50 - 5.30 mg/dL 10/17/2025 6:25 PM EST [facility] Blood, Arterial 10/17/2025 6 :23 PM EST 10/17/2025 6:25 PM EST Vani Winkler MD POINT OF CARE TEST ORDERABLE S Final Result [facility] [address] * POC Potassium (10/17/2025 6:23 PM EST) POC Potassium 3.8 3.5 - 5.3 mmol/L 10/17/2025 6:25 PM EST [facility] Blood, Arterial 10/17/2025 6 :23 PM EST 10/17/2025 6:25 PM EST Vani Winkler MD POINT OF CARE TEST ORDERABLE S Final Result Performing Organization Address City/[facility]/ZIP Co de Phone Number [facility] [address] * POC Sodium (10/17/2025 6:23 PM EST) POC Sodium 142 136 - 146 mmol/L 10/17/2025 6:25 PM EST [facility] Blood, Arterial 10/17/2025 6 :23 PM EST 10/17/2025 6:25 PM EST Vani Winkler MD POINT OF CARE TEST ORDERABLE S Final Result Performing Organization Address [place]/[facility]/ZIP Co de Phone Number [facility] [address] * (ABNORMAL) POC TCO2 (10/17/2025 6:23 PM EST) POC TCO2, Arterial 20(L) 23 - 27 mmol/L 10/17/2025 6:25 PM EST [facility] Blood, Arterial 10/17/2025 6 :23 PM EST 10/17/2025 6:25 PM EST Vani iWnkler MD POINT OF CARE TEST ORDERABLE S Final Result [facility] [address] * POC O2 SAT (10/17/2025 6:23 PM EST) POC O2 Saturation, Arterial 95 95 - 98 % 10/17/2025 6:25 PM EST [facility] Blood, Arterial 10/17/2025 6 :23 PM EST 10/17/2025 6:25 PM EST Vani Winkler MD POINT OF CARE TEST ORDERABLE S Final Result [facility] [address] * (ABNORMAL) POC Base Excess (10/17/2025 6:23 PM EST) POC Base Excess, Arterial -6(L) -2 - 3 mmol/L 10/17/2025 6:25 PM EST [facility] Blood, Arterial 10/17/2025 6 :23 PM EST 10/17/2025 6:25 PM EST Vani Winkler MD POINT OF CARE TEST ORDERABLE S Final Result [facility] [address] * (ABNORMAL) POC HCO3 (10/17/2025 6:23 PM EST) POC HCO3, Arterial 19(L) 22 - 26 mmol/L 10/17/2025 6:25 PM EST [facility] Blood, Arterial 10/17/2025 6 :23 PM EST 10/17/2025 6:25 PM EST Vani iWnkler MD POINT OF CARE TEST ORDERABLE S Final Result [facility] [address] * POC PO2 (10/17/2025 6:23 PM EST) POC pO2, Arterial 80 80 - 100 mm Hg 10/17/2025 6:25 PM EST [facility] Blood, Arterial 10/17/2025 6 :23 PM EST 10/17/2025 6:25 PM EST Vani Winkler MD POINT OF CARE TEST ORDERABLE S Final Result [facility] [address] * POC PCO2 (10/17/2025 6:23 PM EST) POC pCO2, Arterial 36 35 - 45 mm Hg 10/17/2025 6:25 PM EST [facility] Blood, Arterial 10/17/2025 6 :23 PM EST 10/17/2025 6:25 PM EST Vani Winkler MD POINT OF CARE TEST ORDERABLE S Final Result Performing Organization Address City/[facility]/ZIP Co de Phone Number [facility] [address] [facility]. [address] * (ABNORMAL) POC pH (10/17/2025 6:23 PM EST) POC pH, Arterial 7.33(L) 7.35 - 7.45 10/17/2025 6:25 PM EST [facility] Blood, Arterial 10/17/2025 6 :23 PM EST 10/17/2025 6:25 PM EST Vani Winkler MD POINT OF CARE TEST ORDERABLE S Final Result [facility] [address] [facility] * (ABNORMAL) POC INR (10/17/2025 6:21 PM EST) Prothrombin Time INR, POC 6.4(HH) 0.8 - 1.4 10/18/2025 12:07 AM EST [facility] Comment: Test results may vary using [...] OF CARE TEST ORDERABLE S Final Result [facility] [address] * Transfuse Cryoprecipitate (10/17/2025 6:18 PM EST) Slade Munoz MD NURSING TREATMENT ORDERABLES - B LOOD ADMIN Final Result * POC Sample Type (10/17/2025 5:42 PM EST) POC Sample Type Arterial 10/17/2025 6:21 PM EST [facility] Blood, Arterial 10/17/2025 5 :42 PM EST 10/17/2025 6:21 PM EST Vani Winkler MD POINT OF CARE TEST ORDERABLE S Final Result Performing Organization Address City/[facility]/ZIP Co de Phone Number [facility] [address] * POC Anion Gap (10/17/2025 5:42 PM EST) POC Anion Gap, Arterial 10 3 - 16 mmol/L 10/17/2025 6:21 PM EST [facility] Blood, Arterial 10/17/2025 5 :42 PM EST 10/17/2025 6:21 PM EST Vani Winkler MD POINT OF CARE TEST ORDERABLE S Final Result [facility] [address] * (ABNORMAL) POC Chloride (10/17/2025 5:42 PM EST) POC Chloride 111(H) 98 - 110 mmol/L 10/17/2025 6:21 PM EST [facility] Blood, Arterial 10/17/2025 5 :42 PM EST 10/17/2025 6:21 PM EST Vani Winkler MD POINT OF CARE TEST ORDERABLE S Final Result [facility] [address] * (ABNORMAL) POC Hemoglobin (10/17/2025 5:42 PM EST) Pathologist [facility] POC Hemoglobin 7.9(L) 14.0 - 18.0 g/dL 10/17/2025 6:21 PM EST [facility] Blood, Arterial 10/17/2025 5 :42 PM EST 10/17/2025 6:21 PM EST Vani Winkler MD POINT OF CARE TEST ORDERABLE S Final Result [facility] [address] * (ABNORMAL) POC hematocrit (10/17/2025 5:42 PM EST) Pathologist [facility] POC Hematocrit 23.0(L) 40 - 52 % 10/17/2025 6:21 PM EST [facility] Blood, Arterial 10/17/2025 5 :42 PM EST 10/17/2025 6:21 PM EST Vani Winkler MD POINT OF CARE TEST ORDERABLE S Final Result [facility] [address] * (ABNORMAL) POC Lactate (10/17/2025 5:42 PM EST) Pathologist [facility] POC Lactate 2.53(H) 0.50 - 2.20 mmol/L 10/17/2025 6:21 PM EST [facility] Blood, Arterial 10/17/2025 5 :42 PM EST 10/17/2025 6:21 PM EST Vani Winkler MD POINT OF CARE TEST ORDERABLE S Final Result [facility] [address] [facility] * POC Glucose (10/17/2025 5:42 PM EST) Pathologist [facility] POC Glucose, Arterial 77 70 - 100 mg/dL 10/17/2025 6:21 PM EST [facility] Blood, Arterial 10/17/2025 5 :42 PM EST 10/17/2025 6:21 PM EST Vani Winkler MD POINT OF CARE TEST ORDERABLE S Final Result Performing Organization Address City/[facility]/ZIP Co de Phone Number [facility] [address] [facility]. [address] * (ABNORMAL) POC Ionized Calcium (10/17/2025 5:42 PM EST) Pathologist [facility] POC Ionized Calcium 5.90(H) 4.50 - 5.30 mg/dL 10/17/2025 6:21 PM EST [facility] Blood, Arterial 10/17/2025 5 :42 PM EST 10/17/2025 6:21 PM EST Vani Winkler MD POINT OF CARE TEST ORDERABLE S Final Result [facility] [address] [facility] * POC Potassium (10/17/2025 5:42 PM EST) Pathologist [facility] POC Potassium 3.7 3.5 - 5.3 mmol/L 10/17/2025 6:21 PM EST [facility] Blood, Arterial 10/17/2025 5 :42 PM EST 10/17/2025 6:21 PM EST Vani Winkler MD POINT OF CARE TEST ORDERABLE S Final Result [facility] [address] [facility] * POC Sodium (10/17/2025 5:42 PM EST) Pathologist [facility] POC Sodium 141 136 - 146 mmol/L 10/17/2025 6:21 PM EST [facility] Blood, Arterial 10/17/2025 5 :42 PM EST 10/17/2025 6:21 PM EST Vani Winkler MD POINT OF CARE TEST ORDERABLE S Final Result [facility] [address] [facility] * (ABNORMAL) POC TCO2 (10/17/2025 5:42 PM EST) Pathologist [facility] POC TCO2, Arterial 21(L) 23 - 27 mmol/L 10/17/2025 6:21 PM EST [facility] Blood, Arterial 10/17/2025 5 :42 PM EST 10/17/2025 6:21 PM EST Vani Winkler MD POINT OF CARE TEST ORDERABLE S Final Result [facility] [address] [facility] * (ABNORMAL) POC O2 SAT (10/17/2025 5:42 PM EST) POC O2 Saturation, Arterial 99(H) 95 - 98 % 10/17/2025 6:21 PM EST [facility] Blood, Arterial 10/17/2025 5 :42 PM EST 10/17/2025 6:21 PM EST Vani Winkler MD POINT OF CARE TEST ORDERABLE S Final Result [facility] [address] [facility] * (ABNORMAL) POC Base Excess (10/17/2025 5:42 PM EST) POC Base Excess, Arterial -4(L) -2 - 3 mmol/L 10/17/2025 6:21 PM EST [facility] Blood, Arterial 10/17/2025 5 :42 PM EST 10/17/2025 6:21 PM EST Vani Winkler MD POINT OF CARE TEST ORDERABLE S Final Result Performing Organization Address City/[facility]/ZIP Co de Phone Number [facility] [address] [facility] * (ABNORMAL) POC HCO3 (10/17/2025 5:42 PM EST) POC HCO3, Arterial 20(L) 22 - 26 mmol/L 10/17/2025 6:21 PM EST [facility] Blood, Arterial 10/17/2025 5 :42 PM EST 10/17/2025 6:21 PM EST Vani Winkler MD POINT OF CARE TEST ORDERABLE S Final Result Performing Organization Address City/[facility]/ZIP Co de Phone Number [facility] [address] [place] [address]. [address] * (ABNORMAL) POC PO2 (10/17/2025 5:42 PM EST) POC pO2, Arterial 159(H) 80 - 100 mm Hg 10/17/2025 6:21 PM EST [facility] Blood, Arterial 10/17/2025 5 :42 PM EST 10/17/2025 6:21 PM EST Vani Winkler MD POINT OF CARE TEST ORDERABLE S Final Result [facility] [address] * (ABNORMAL) POC PCO2 (10/17/2025 5:42 PM EST) POC pCO2, Arterial 33(L) 35 - 45 mm Hg 10/17/2025 6:21 PM EST [facility] Blood, Arterial 10/17/2025 5 :42 PM EST 10/17/2025 6:21 PM EST Vani Winkler MD POINT OF CARE TEST ORDERABLE S Final Result Performing Organization Address City/[facility] Co de Phone Number [facility] [address] * POC pH (10/17/2025 5:42 PM EST) POC pH, Arterial 7.40 7.35 - 7.45 10/17/2025 6:21 PM EST [facility] Blood, Arterial 10/17/2025 5 :42 PM EST 10/17/2025 6:21 PM EST Vani Winkler MD POINT OF CARE TEST ORDERABLE S Final Result [facility] [address] * (ABNORMAL) POC INR (10/17/2025 5:37 PM EST) Prothrombin Time INR, POC 3.6(H) 0.8 - 1.4 10/18/2025 12:07 AM EST [facility] Comment: Test results may vary using [...] OF CARE TEST ORDERABLE S Final Result [facility] [address] * Transfuse RBC (10/17/2025 5:34 PM [...] [facility] - 10/17/2025 12:00 AM EST CASE: [id number] PATIENT: DAVID SERRANO Clinical History: transplant liver Pre-Operative Diagnosis: end stage liver disease Post-Operative Diagnosis: same Specimen(s) Submitted: A. Kenaitze liver and gallbladder; B. Right lobe post perfusion liver bx; C. Left lobe post perfusion liver bx CPT Code(s): 89267 X 2; 33112 X 1; 54140 X 7 Additional Information: FINAL DIAGNOSIS: Liver and gall bladder, kalispel, total hepatectomy with cholecystectomy: Liver: -Cirrhosis, mild [...] with the patient's name David Serrano and kalispel liver and gallbladder is a 782 gram, [...] no discrete masses or lesions are identified. [employer] sections are submitted in cassettes [id number] as follows: A1: [employer] gallbladder. A2: Hilar margins, en face. A3-A5: [employer] right lobe. A6-A8: [employer] left lobe with liver written on the side of the cassette in A8. (LAISHA Miranda/) B. Received in formalin, labeled with the patient's name David Serrano and right lobe post perfusion liver biopsy is a 1.6 cm in length x 0.1 cm in diameter red-brown tissue core, which is entirely submitted between blue biopsy sponges in cassette [id number]. (LAISHA Miranda/vc) C. Received in formalin, labeled with the patient's name David Serrano and left lobe post perfusion liver biopsy is a 1.3 cm in length x 0.1 cm in diameter red-brown fragmented tissue core, which is entirely submitted between blue biopsy sponges in cassette [id number]. (LAISHA Miranda/vc) Microscopic Description: Sixteen HE [...] report is located at [facility], [address] [place] [address], [facility], , CLIA ID: [id number] us Leticia Lomeli MD PATHOLOGY/CYTOLOGY ORDERABLES Final Result Performing Organization Address [facility] Co de Phone Number [facility] * Transfuse RBC (10/17/2025 5:19 PM EST) Slade Munoz MD NURSING TREATMENT ORDERABLES - B LOOD ADMIN Final Result * POC Sample Type (10/17/2025 5:00 PM EST) POC Sample Type Arterial 10/17/2025 5:03 PM EST [facility] Blood, Arterial 10/17/2025 5 :00 PM EST 10/17/2025 5:03 PM EST Vani Winkler MD POINT OF CARE TEST ORDERABLE S Final Result [facility] [address] [place] [address] * POC Anion Gap (10/17/2025 5:00 PM EST) POC Anion Gap, Arterial 11 3 - 16 mmol/L 10/17/2025 5:03 PM EST [facility] Blood, Arterial 10/17/2025 5 :00 PM EST 10/17/2025 5:03 PM EST Vani Winkler MD POINT OF CARE TEST ORDERABLE S Final Result [facility] [address] * POC Chloride (10/17/2025 5:00 PM EST) POC Chloride 109 98 - 110 mmol/L 10/17/2025 5:03 PM EST [facility] Blood, Arterial 10/17/2025 5 :00 PM EST 10/17/2025 5:03 PM EST Vani Winkler MD POINT OF CARE TEST ORDERABLE S Final Result Performing Organization Address City/[facility]/ZIP Co de Phone Number [facility] [address] * (ABNORMAL) POC Hemoglobin (10/17/2025 5:00 PM EST) POC Hemoglobin 7.9(L) 14.0 - 18.0 g/dL 10/17/2025 5:03 PM EST [facility] Blood, Arterial 10/17/2025 5 :00 PM EST 10/17/2025 5:03 PM EST Vani Winkler MD POINT OF CARE TEST ORDERABLE S Final Result Performing Organization Address City/[facility]/ZIP Co de Phone Number [facility] [address] * (ABNORMAL) POC hematocrit (10/17/2025 5:00 PM EST) POC Hematocrit 23.0(L) 40 - 52 % 10/17/2025 5:03 PM EST [facility] Blood, Arterial 10/17/2025 5 :00 PM EST 10/17/2025 5:03 PM EST Vani Winkler MD POINT OF CARE TEST ORDERABLE S Final Result [facility] [address] * (ABNORMAL) POC Lactate (10/17/2025 5:00 PM EST) POC Lactate 2.68(H) 0.50 - 2.20 mmol/L 10/17/2025 5:03 PM EST [facility] Blood, Arterial 10/17/2025 5 :00 PM EST 10/17/2025 5:03 PM EST Vani Winkler MD POINT OF CARE TEST ORDERABLE S Final Result [facility] [address] * POC Glucose (10/17/2025 5:00 PM EST) POC Glucose, Arterial 96 70 - 100 mg/dL 10/17/2025 5:03 PM EST [facility] Blood, Arterial 10/17/2025 5 :00 PM EST 10/17/2025 5:03 PM EST Vani Winkler MD POINT OF CARE TEST ORDERABLE S Final Result [facility] [address] * POC Ionized Calcium (10/17/2025 5:00 PM EST) POC Ionized Calcium 4.60 4.50 - 5.30 mg/dL 10/17/2025 5:03 PM EST [facility] Blood, Arterial 10/17/2025 5 :00 PM EST 10/17/2025 5:03 PM EST Vani Winkler MD POINT OF CARE TEST ORDERABLE S Final Result [facility] [address] * POC Potassium (10/17/2025 5:00 PM EST) POC Potassium 3.7 3.5 - 5.3 mmol/L 10/17/2025 5:03 PM EST [facility] Blood, Arterial 10/17/2025 5 :00 PM EST 10/17/2025 5:03 PM EST Vani Winkler MD POINT OF CARE TEST ORDERABLE S Final Result [facility] [address] [facility]. [address] * POC Sodium (10/17/2025 5:00 PM EST) POC Sodium 143 136 - 146 mmol/L 10/17/2025 5:03 PM EST [facility] Blood, Arterial 10/17/2025 5 :00 PM EST 10/17/2025 5:03 PM EST Vani Winkler MD POINT OF CARE TEST ORDERABLE S Final Result [facility] [address] * POC TCO2 (10/17/2025 5:00 PM EST) POC TCO2, Arterial 24 23 - 27 mmol/L 10/17/2025 5:03 PM EST [facility] Blood, Arterial 10/17/2025 5 :00 PM EST 10/17/2025 5:03 PM EST Vani Winkler MD POINT OF CARE TEST ORDERABLE S Final Result [facility] [address] [facility] * (ABNORMAL) POC O2 SAT (10/17/2025 5:00 PM EST) POC O2 Saturation, Arterial 100(H) 95 - 98 % 10/17/2025 5:03 PM EST [facility] Blood, Arterial 10/17/2025 5 :00 PM EST 10/17/2025 5:03 PM EST Vani Winkler MD POINT OF CARE TEST ORDERABLE S Final Result [facility] [address] [facility] * POC Base Excess (10/17/2025 5:00 PM EST) POC Base Excess, Arterial -2 -2 - 3 mmol/L 10/17/2025 5:03 PM EST [facility] Blood, Arterial 10/17/2025 5 :00 PM EST 10/17/2025 5:03 PM EST Vani Winkler MD POINT OF CARE TEST ORDERABLE S Final Result [facility] [address] [facility] * POC HCO3 (10/17/2025 5:00 PM EST) POC HCO3, Arterial 23 22 - 26 mmol/L 10/17/2025 5:03 PM EST [facility] Blood, Arterial 10/17/2025 5 :00 PM EST 10/17/2025 5:03 PM EST Vani Winkler MD POINT OF CARE TEST ORDERABLE S Final Result [facility] [address] [facility] * (ABNORMAL) POC PO2 (10/17/2025 5:00 PM EST) POC pO2, Arterial 200(H) 80 - 100 mm Hg 10/17/2025 5:03 PM EST [facility] Blood, Arterial 10/17/2025 5 :00 PM EST 10/17/2025 5:03 PM EST Vani Winkler MD POINT OF CARE TEST ORDERABLE S Final Result [facility] [address] [facility]. [address] * POC PCO2 (10/17/2025 5:00 PM EST) POC pCO2, Arterial 38 35 - 45 mm Hg 10/17/2025 5:03 PM EST [facility] Blood, Arterial 10/17/2025 5 :00 PM EST 10/17/2025 5:03 PM EST Vani Winkler MD POINT OF CARE TEST ORDERABLE S Final Result Performing Organization Address [facility] Co de Phone Number [facility] [address] * POC pH (10/17/2025 5:00 PM EST) POC pH, Arterial 7.39 7.35 - 7.45 10/17/2025 5:03 PM EST [facility] Blood, Arterial 10/17/2025 5 :00 PM EST 10/17/2025 5:03 PM EST Vani Winkler MD POINT OF CARE TEST ORDERABLE S Final Result Performing Organization Address City/[facility]/ZIP Co de Phone Number [facility] [address] [facility] * (ABNORMAL) POC INR (10/17/2025 4:59 PM EST) Prothrombin Time INR, POC 1.7(H) 0.8 - 1.4 10/18/2025 12:07 AM EST [facility] Comment: Test results may vary using [...] OF CARE TEST ORDERABLE S Final Result [facility] [address] * (ABNORMAL) TEG-Bypass/ECMO/Liver HN (Factor function, Platelet/Fibrin Clot Strength w/Clot Breakdown, Heparinase In All Channels) (10/17/2025 4:56 PM EST) Citrated Kaolin Reaction Time (TEGECMOLIVER) 4.7 4.6 - 9.1 minutes 10/17/2025 6:20 PM EST [facility] Citrated Kaolin W/Heparinase Reaction Time (TEGECMOLIVER) 4.7 4.3 - 8.3 minutes 10/17/2025 6:20 PM EST [facility] Citrated Kaolin Maximum Amplitude (TEGECMOLIVER) 42.4(L) 52.0 - 69.0 mm 10/17/2025 6:20 PM EST [facility] Citrated Functional Fibrinogen W/Heparinase Maximum Amplitude(TEGEC MOLIVER) 6.6(L) 15.0 - 34.0 mm 10/17/2025 6:20 PM EST [facility] Citrated Rapid Teg W/Heparinase Maximum Amplitude (TEGECMOLIVER) 39.8(L) 53.0 - 69.0 mm 10/17/2025 6:20 PM EST [facility] Citrated Kaolin w/Heparinase Percent Lysis (TEGECMOLIVER) 0.0 0.0 - 3.2 % 10/17/2025 6:20 PM EST [facility] Whole Blood (Citrate) 10/17/2025 4:56 PM EST 10/17/2025 5:06 PM EST us Slade Munoz MD LAB BLOOD ORDERABLES Final Resul t [facility] [address] * (ABNORMAL) Protime-INR (10/17/2025 4:56 PM EST) Protime 26.4(H) 12.1 - 15.1 seconds 10/17/2025 5:31 PM EST [facility] INR 2.3(H) 0.9 - 1.1 10/17/2025 5:31 PM EST [facility] Comment: RECOMMENDED THERAPEUTIC RANGES USING INR : Stable oral anticoagulant therapy: 2.0 - 3.0 Mechanical prosthetic heart valve: 2.5 - 3.5 Recurrent acute myocardial infarction: 2.5 - 3.5 Plasma 10/17/2025 4:56 PM EST 10/17/2025 5:06 PM EST Slade Munoz MD LAB BLOOD ORDERABLES Final Resul t Performing Organization Address City/[facility]/ZIP Co de Phone Number [facility] [address] * (ABNORMAL) Fibrinogen (10/17/2025 4:56 PM EST) Fibrinogen 137(L) 218 - 406 mg/dL 10/17/2025 5:36 PM EST [facility] Plasma 10/17/2025 4:56 PM EST 10/17/2025 5:06 PM EST Slade Munoz MD LAB BLOOD ORDERABLES Final Resul t [facility] [address] [facility] * (ABNORMAL) CBC (10/17/2025 4:56 PM EST) WBC 3.9 3.8 - 10.8 10E3/uL 10/17/2025 8:25 PM EST [facility] RBC 2.67(L) 4.20 - 5.80 10E6/uL 10/17/2025 8:25 PM EST [facility] Hemoglobin 9.2(L) 13.2 - 17.1 g/dL 10/17/2025 8:25 PM EST [facility] Hematocrit 26.1(L) 38.5 - 50.0 % 10/17/2025 8:25 PM EST [facility] MCV 98.0 80.0 - 100.0 fL 10/17/2025 8:25 PM EST [facility] MCH 34.5(H) 27.0 - 33.0 pg 10/17/2025 8:25 PM EST [facility] MCHC 35.3 32.0 - 36.0 g/dL 10/17/2025 8:25 PM EST [facility] RDW 17.9(H) 11.0 - 15.0 % 10/17/2025 8:25 PM EST [facility] Platelets 64(L) 140 - 400 10E3/uL 10/17/2025 8:25 PM EST [facility] MPV 8.2 7.5 - 11.5 fL 10/17/2025 8:25 PM EST [facility] Whole Blood 10/17/2025 4:56 PM EST 10/17/2025 5:19 PM EST us Slade Munoz MD LAB BLOOD ORDERABLES Final Resul t [facility] [address] [facility] * (ABNORMAL) APTT, No Anticoagulant (10/17/2025 4:56 PM EST) aPTT 55.7(H) 25.5 - 35.0 seconds 10/17/2025 5:32 PM EST [facility] Plasma 10/17/2025 4:56 PM EST 10/17/2025 5:06 PM EST us Slade Munoz MD LAB BLOOD ORDERABLES Final Resul t [facility] [address] [facility] * Transfuse Cryoprecipitate (10/17/2025 4:18 PM EST) us Slade Munoz MD NURSING TREATMENT ORDERABLES - B LOOD ADMIN Final Result * Transfuse Cryoprecipitate Transfusion Rate: Per dept routine (10/17/2025 4:18 PM EST) us Slade Munoz MD NURSING TREATMENT ORDERABLES - B LOOD ADMIN Final Result Performing Organization Address [facility] de Phone Number EXTERNAL * Transfuse Cryoprecipitate Transfusion Rate: Per dept routine, 1 Units (10/17/2025 4:18 PM EST) us Slade Munoz MD NURSING TREATMENT ORDERABLES - B LOOD ADMIN Final Result Performing Organization Address [place]/[facility] Co de Phone Number EXTERNAL * Transfuse Platelets (10/17/2025 4:06 PM EST) us Slade Munoz MD NURSING TREATMENT ORDERABLES - B LOOD ADMIN Final Result * POC Sample Type (10/17/2025 3:59 PM EST) POC Sample Type Arterial 10/17/2025 4:01 PM EST [facility] Blood, Arterial 10/17/2025 3 :59 PM EST 10/17/2025 4:01 PM EST us Vani Winkler MD POINT OF CARE TEST ORDERABLE S Final Result Performing Organization Address [facility] Co de Phone Number [facility] [address] [facility]. [address] * POC Anion Gap (10/17/2025 3:59 PM EST) Pathologist [facility] POC Anion Gap, Arterial 10 3 - 16 mmol/L 10/17/2025 4:01 PM EST [facility] Blood, Arterial 10/17/2025 3 :59 PM EST 10/17/2025 4:01 PM EST us Vani Winkler MD POINT OF CARE TEST ORDERABLE S Final Result Performing Organization Address [facility] Campus/[facility] Co de Phone Number [facility] [address] [facility]. [address] * (ABNORMAL) POC Chloride (10/17/2025 3:59 PM EST) POC Chloride 111(H) 98 - 110 mmol/L 10/17/2025 4:01 PM EST [facility] Blood, Arterial 10/17/2025 3 :59 PM EST 10/17/2025 4:01 PM EST Vani Winkler MD POINT OF CARE TEST ORDERABLE S Final Result [facility] [address] * (ABNORMAL) POC Hemoglobin (10/17/2025 3:59 PM EST) Pathologist [facility] POC Hemoglobin 9.7(L) 14.0 - 18.0 g/dL 10/17/2025 4:01 PM EST [facility] Blood, Arterial 10/17/2025 3 :59 PM EST 10/17/2025 4:01 PM EST Vani Winkler MD POINT OF CARE TEST ORDERABLE S Final Result Performing Organization Address City/[facility]/ZIP Co de Phone Number [facility] [address] * (ABNORMAL) POC hematocrit (10/17/2025 3:59 PM EST) Pathologist [facility] POC Hematocrit 29.0(L) 40 - 52 % 10/17/2025 4:01 PM EST [facility] Blood, Arterial 10/17/2025 3 :59 PM EST 10/17/2025 4:01 PM EST Vani Winkler MD POINT OF CARE TEST ORDERABLE S Final Result [facility] [address] [facility]. [address] * POC Lactate (10/17/2025 3:59 PM EST) POC Lactate 1.77 0.50 - 2.20 mmol/L 10/17/2025 4:01 PM EST [facility] Blood, Arterial 10/17/2025 3 :59 PM EST 10/17/2025 4:01 PM EST Vani Winkler MD POINT OF CARE TEST ORDERABLE S Final Result Performing Organization Address City/[facility]/ZIP Co de Phone Number [facility] [address] [facility]. [address] * POC Glucose (10/17/2025 3:59 PM EST) POC Glucose, Arterial 81 70 - 100 mg/dL 10/17/2025 4:01 PM EST [facility] Blood, Arterial 10/17/2025 3 :59 PM EST 10/17/2025 4:01 PM EST Vani Winkler MD POINT OF CARE TEST ORDERABLE S Final Result Performing Organization Address City/[facility]/ZIP Co de Phone Number [facility] [address] [facility]. [address] * POC Ionized Calcium (10/17/2025 3:59 PM EST) POC Ionized Calcium 4.90 4.50 - 5.30 mg/dL 10/17/2025 4:01 PM EST [facility] Blood, Arterial 10/17/2025 3 :59 PM EST 10/17/2025 4:01 PM EST Vani Winkler MD POINT OF CARE TEST ORDERABLE S Final Result Performing Organization Address City/[facility]/ZIP Co de Phone Number [facility] [address] [place] [address]. [address] * POC Potassium (10/17/2025 3:59 PM EST) POC Potassium 3.7 3.5 - 5.3 mmol/L 10/17/2025 4:01 PM EST [facility] Blood, Arterial 10/17/2025 3 :59 PM EST 10/17/2025 4:01 PM EST Vani Winkler MD POINT OF CARE TEST ORDERABLE S Final Result Performing Organization Address City/[facility]/ZIP Co de Phone Number [facility] [address] * POC Sodium (10/17/2025 3:59 PM EST) POC Sodium 145 136 - 146 mmol/L 10/17/2025 4:01 PM EST [facility] Blood, Arterial 10/17/2025 3 :59 PM EST 10/17/2025 4:01 PM EST us Vani Winkler MD POINT OF CARE TEST ORDERABLE S Final Result Performing Organization Address [facility] Co de Phone Number [facility] [address] [facility]. [address] * POC TCO2 (10/17/2025 3:59 PM EST) POC TCO2, Arterial 26 23 - 27 mmol/L 10/17/2025 4:01 PM EST [facility] Blood, Arterial 10/17/2025 3 :59 PM EST 10/17/2025 4:01 PM EST Vani Winkler MD POINT OF CARE TEST ORDERABLE S Final Result Performing Organization Address City/[facility]/ZIP Co de Phone Number [facility] [address] [place] [address]. [address] * (ABNORMAL) POC O2 SAT (10/17/2025 3:59 PM EST) POC O2 Saturation, Arterial 100(H) 95 - 98 % 10/17/2025 4:01 PM EST [facility] Blood, Arterial 10/17/2025 3 :59 PM EST 10/17/2025 4:01 PM EST Vani Winkler MD POINT OF CARE TEST ORDERABLE S Final Result [facility] [address] * POC Base Excess (10/17/2025 3:59 PM EST) POC Base Excess, Arterial -1 -2 - 3 mmol/L 10/17/2025 4:01 PM EST [facility] Blood, Arterial 10/17/2025 3 :59 PM EST 10/17/2025 4:01 PM EST Vani Winkler MD POINT OF CARE TEST ORDERABLE S Final Result Performing Organization Address City/[facility]/ZIP Co de Phone Number [facility] [address] * POC HCO3 (10/17/2025 3:59 PM EST) POC HCO3, Arterial 24 22 - 26 mmol/L 10/17/2025 4:01 PM EST [facility] Blood, Arterial 10/17/2025 3 :59 PM EST 10/17/2025 4:01 PM EST Vani Winkler MD POINT OF CARE TEST ORDERABLE S Final Result Performing Organization Address City/[facility]/ZIP Co de Phone Number [facility] [address] * (ABNORMAL) POC PO2 (10/17/2025 3:59 PM EST) POC pO2, Arterial 213(H) 80 - 100 mm Hg 10/17/2025 4:01 PM EST [facility] Blood, Arterial 10/17/2025 3 :59 PM EST 10/17/2025 4:01 PM EST Vani Winkler MD POINT OF CARE TEST ORDERABLE S Final Result [facility] [address] * POC PCO2 (10/17/2025 3:59 PM EST) POC pCO2, Arterial 45 35 - 45 mm Hg 10/17/2025 4:01 PM EST [facility] Blood, Arterial 10/17/2025 3 :59 PM EST 10/17/2025 4:01 PM EST Vani Winkler MD POINT OF CARE TEST ORDERABLE S Final Result Performing Organization Address City/[facility]/ZIP Co de Phone Number [facility] [address] [facility]. [address] * (ABNORMAL) POC pH (10/17/2025 3:59 PM EST) POC pH, Arterial 7.34(L) 7.35 - 7.45 10/17/2025 4:01 PM EST [facility] Blood, Arterial 10/17/2025 3 :59 PM EST 10/17/2025 4:01 PM EST Vani Winkler MD POINT OF CARE TEST ORDERABLE S Final Result Performing Organization Address [facility] de Phone Number [facility] [address] [facility] * (ABNORMAL) POC INR (10/17/2025 3:58 PM EST) Prothrombin Time INR, POC 2.8(H) 0.8 - 1.4 10/18/2025 12:07 AM EST [facility] Comment: Test results may vary [...] OF CARE TEST ORDERABLE S Final Result [facility] [address] [place] [id number], [facility] * Transfuse RBC (10/17/2025 3:23 PM EST) Result [facility] us Slade Munoz MD NURSING TREATMENT ORDERABLES - B LOOD ADMIN Final Result * Transfuse RBC (10/17/2025 3:15 PM EST) Slade Munoz MD NURSING TREATMENT ORDERABLES - B LOOD ADMIN Final Result * (ABNORMAL) TEG-Bypass/ECMO/Liver HN (Factor function, Platelet/Fibrin Clot Strength w/Clot Breakdown, Heparinase In All Channels) (10/17/2025 2:55 PM EST) [facility] Citrated Kaolin Reaction Time (TEGECMOLIVER) 5.1 4.6 - 9.1 minutes 10/17/2025 4:23 PM EST [facility] Citrated Kaolin W/Heparinase Reaction Time (TEGECMOLIVER) 5.2 4.3 - 8.3 minutes 10/17/2025 4:23 PM EST [facility] Citrated Kaolin Maximum Amplitude (TEGECMOLIVER) <40.0(L) 52.0 - 69.0 mm 10/17/2025 4:23 PM EST [facility] Citrated Functional Fibrinogen W/Heparinase Maximum Amplitude(TEGEC MOLIVER) <6.0(L) 15.0 - 34.0 mm 10/17/2025 4:23 PM EST [facility] Citrated Rapid Teg W/Heparinase Maximum Amplitude (TEGECMOLIVER) 32.8(L) 53.0 - 69.0 mm 10/17/2025 4:23 PM EST [facility] Citrated Kaolin w/Heparinase Percent Lysis (TEGECMOLIVER) 0.0 0.0 - 3.2 % 10/17/2025 4:23 PM EST [facility] Whole Blood (Citrate) 10/17/2025 2:55 PM EST 10/17/2025 3:05 PM EST us Slade Munoz MD LAB BLOOD ORDERABLES Final Resul t [facility] [address] * (ABNORMAL) CBC (10/17/2025 2:55 PM EST) WBC 4.4 3.8 - 10.8 10E3/uL 10/17/2025 3:20 PM EST [facility] RBC 2.90(L) 4.20 - 5.80 10E6/uL 10/17/2025 3:20 PM EST [facility] Hemoglobin 10.0(L) 13.2 - 17.1 g/dL 10/17/2025 3:20 PM EST [facility] Hematocrit 28.6(L) 38.5 - 50.0 % 10/17/2025 3:20 PM EST [facility] MCV 98.7 80.0 - 100.0 fL 10/17/2025 3:20 PM EST [facility] MCH 34.4(H) 27.0 - 33.0 pg 10/17/2025 3:20 PM EST [facility] MCHC 34.8 32.0 - 36.0 g/dL 10/17/2025 3:20 PM EST [facility] RDW 17.0(H) 11.0 - 15.0 % 10/17/2025 3:20 PM EST [facility] Platelets 53(L) 140 - 400 10E3/uL 10/17/2025 3:20 PM EST [facility] MPV 7.6 7.5 - 11.5 fL 10/17/2025 3:20 PM EST [facility] Whole Blood 10/17/2025 2:55 PM EST 10/17/2025 3:06 PM EST us Slade Munoz MD LAB BLOOD ORDERABLES Final Resul t [facility] [address] * (ABNORMAL) Fibrinogen (10/17/2025 2:55 PM EST) Fibrinogen 85(LL) 218 - 406 mg/dL 10/17/2025 3:46 PM EST [facility] Comment:The critical result was called to, and read back by, licensed caregiver CAMI GALEANO MD, AT 1545 Plasma 10/17/2025 2:55 PM EST 10/17/2025 3:06 PM EST Result [facility] Slade Munoz MD LAB BLOOD ORDERABLES Final Resul t Performing Organization Address [facility] Co de Phone Number [facility] [address] * (ABNORMAL) Protime-INR (10/17/2025 2:55 PM EST) Protime 26.5(H) 12.1 - 15.1 seconds 10/17/2025 3:30 PM EST [facility] INR 2.3(H) 0.9 - 1.1 10/17/2025 3:30 PM EST [facility] Comment: RECOMMENDED THERAPEUTIC RANGES USING INR : Stable oral anticoagulant therapy: 2.0 - 3.0 Mechanical prosthetic heart valve: 2.5 - 3.5 Recurrent acute myocardial infarction: 2.5 - 3.5 Plasma 10/17/2025 2:55 PM EST 10/17/2025 3:06 PM EST Result [facility] Slade Munoz MD LAB BLOOD ORDERABLES Final Resul t Performing Organization Address [facility] Co de Phone Number [facility] [address] [facility] * POC Sample Type (10/17/2025 2:54 PM EST) POC Sample Type Arterial 10/17/2025 3:55 PM EST [facility] Blood, Arterial 10/17/2025 2 :54 PM EST 10/17/2025 3:55 PM EST Result [facility] Vani Winkler MD POINT OF CARE TEST ORDERABLE S Final Result Performing Organization Address [facility] Co de Phone Number [facility] [address] * POC Anion Gap (10/17/2025 2:54 PM EST) POC Anion Gap, Arterial 10 3 - 16 mmol/L 10/17/2025 3:55 PM EST [facility] Blood, Arterial 10/17/2025 2 :54 PM EST 10/17/2025 3:55 PM EST Vani Winkler MD POINT OF CARE TEST ORDERABLE S Final Result [facility] [address] [place] [address]. [address] * (ABNORMAL) POC Chloride (10/17/2025 2:54 PM EST) Pathologist [facility] POC Chloride 112(H) 98 - 110 mmol/L 10/17/2025 3:55 PM EST [facility] Blood, Arterial 10/17/2025 2 :54 PM EST 10/17/2025 3:55 PM EST Vani Winkler MD POINT OF CARE TEST ORDERABLE S Final Result Performing Organization Address [facility] Co de Phone Number [facility] [address] [place] [address]. [address] * (ABNORMAL) POC Hemoglobin (10/17/2025 2:54 PM EST) Pathologist [facility] POC Hemoglobin 8.7(L) 14.0 - 18.0 g/dL 10/17/2025 3:55 PM EST [facility] Blood, Arterial 10/17/2025 2 :54 PM EST 10/17/2025 3:55 PM EST Vani Winkler MD POINT OF CARE TEST ORDERABLE S Final Result Performing Organization Address City/[facility] Co de Phone Number [facility] [address] [place] [address]. [address] * (ABNORMAL) POC hematocrit (10/17/2025 2:54 PM EST) POC Hematocrit 26.0(L) 40 - 52 % 10/17/2025 3:55 PM EST [facility] Blood, Arterial 10/17/2025 2 :54 PM EST 10/17/2025 3:55 PM EST Vani Winkler MD POINT OF CARE TEST ORDERABLE S Final Result [facility] [address] [place] [address]. [address] * POC Lactate (10/17/2025 2:54 PM EST) Pathologist [facility] POC Lactate 1.23 0.50 - 2.20 mmol/L 10/17/2025 3:55 PM EST [facility] Blood, Arterial 10/17/2025 2 :54 PM EST 10/17/2025 3:55 PM EST Vani Winkler MD POINT OF CARE TEST ORDERABLE S Final Result [facility] [address] [facility]. [address] * POC Glucose (10/17/2025 2:54 PM EST) Pathologist [facility] POC Glucose, Arterial 74 70 - 100 mg/dL 10/17/2025 3:55 PM EST [facility] Blood, Arterial 10/17/2025 2 :54 PM EST 10/17/2025 3:55 PM EST Vani Winkler MD POINT OF CARE TEST ORDERABLE S Final Result [facility] [address] [place] [address]. [address] * POC Ionized Calcium (10/17/2025 2:54 PM EST) Pathologist [facility] POC Ionized Calcium 4.70 4.50 - 5.30 mg/dL 10/17/2025 3:55 PM EST [facility] Blood, Arterial 10/17/2025 2 :54 PM EST 10/17/2025 3:55 PM EST us Vani Winkler MD POINT OF CARE TEST ORDERABLE S Final Result [facility] [address] [facility]. [address] * (ABNORMAL) POC Potassium (10/17/2025 2:54 PM EST) POC Potassium 3.2(L) 3.5 - 5.3 mmol/L 10/17/2025 3:55 PM EST [facility] Blood, Arterial 10/17/2025 2 :54 PM EST 10/17/2025 3:55 PM EST us Vani Winkler MD POINT OF CARE TEST ORDERABLE S Final Result Performing Organization Address City/[facility]/ZIP Co de Phone Number [facility] [address] [facility] * POC Sodium (10/17/2025 2:54 PM EST) POC Sodium 145 136 - 146 mmol/L 10/17/2025 3:55 PM EST [facility] Blood, Arterial 10/17/2025 2 :54 PM EST 10/17/2025 3:55 PM EST us Vani Winkler MD POINT OF CARE TEST ORDERABLE S Final Result Performing Organization Address City/State/[facility] Co de Phone Number [facility] [address] [facility] * POC TCO2 (10/17/2025 2:54 PM EST) POC TCO2, Arterial 24 23 - 27 mmol/L 10/17/2025 3:55 PM EST [facility] Blood, Arterial 10/17/2025 2 :54 PM EST 10/17/2025 3:55 PM EST us Vani Winkler MD POINT OF CARE TEST ORDERABLE S Final Result [facility] [address] * (ABNORMAL) POC O2 SAT (10/17/2025 2:54 PM EST) POC O2 Saturation, Arterial 100(H) 95 - 98 % 10/17/2025 3:55 PM EST [facility] Blood, Arterial 10/17/2025 2 :54 PM EST 10/17/2025 3:55 PM EST Vani Winkler MD POINT OF CARE TEST ORDERABLE S Final Result Performing Organization Address [facility]/ZIP Co de Phone Number [facility] [address] * POC Base Excess (10/17/2025 2:54 PM EST) POC Base Excess, Arterial -2 -2 - 3 mmol/L 10/17/2025 3:55 PM EST [facility] Blood, Arterial 10/17/2025 2 :54 PM EST 10/17/2025 3:55 PM EST Vani Winkler MD POINT OF CARE TEST ORDERABLE S Final Result Performing Organization Address City/[facility]/ZIP Co de Phone Number [facility] [address] * POC HCO3 (10/17/2025 2:54 PM EST) POC HCO3, Arterial 23 22 - 26 mmol/L 10/17/2025 3:55 PM EST [facility] Blood, Arterial 10/17/2025 2 :54 PM EST 10/17/2025 3:55 PM EST Vani Winkler MD POINT OF CARE TEST ORDERABLE S Final Result [facility] [address] * (ABNORMAL) POC PO2 (10/17/2025 2:54 PM EST) POC pO2, Arterial 179(H) 80 - 100 mm Hg 10/17/2025 3:55 PM EST [facility] Blood, Arterial 10/17/2025 2 :54 PM EST 10/17/2025 3:55 PM EST Vani Winkler MD POINT OF CARE TEST ORDERABLE S Final Result [facility] [address] * POC PCO2 (10/17/2025 2:54 PM EST) POC pCO2, Arterial 40 35 - 45 mm Hg 10/17/2025 3:55 PM EST [facility] Blood, Arterial 10/17/2025 2 :54 PM EST 10/17/2025 3:55 PM EST Vani Winkler MD POINT OF CARE TEST ORDERABLE S Final Result [facility] [address] * POC pH (10/17/2025 2:54 PM EST) POC pH, Arterial 7.37 7.35 - 7.45 10/17/2025 3:55 PM EST [facility] Blood, Arterial 10/17/2025 2 :54 PM EST 10/17/2025 3:55 PM EST Vani Winkler MD POINT OF CARE TEST ORDERABLE S Final Result [facility] [address] * (ABNORMAL) POC INR (10/17/2025 2:53 [...] ORDERABLE S Final Result Performing Organization Address [facility] Co de Phone Number [facility] [address] * Routine Culture plus Stain (Surgical Swab) (10/17/2025 2:50 PM EST) Gram Stain Result Rare Polymorphonuclear Leukocytes Seen [facility] Gram Stain Result No Organisms Seen; [facility] Culture Result No Growth After 3 Days [facility] Surgical Swab PERITONEAL FLUID / Unknown 10/17/2025 2:50 PM EST Comment:1. Ascites-anaerobic , aerobic, and fungal Narrative [facility] - 10/20/2025 11:09 AM EST 1. Ascites-anaerobic, aerobic, and fungal 1. Ascites-anaerobic, aerobic, and fungal Vani Winkler MD MICROBIOLOGY - GENERAL ORDER MARYA Final Result [facility] [address] * Anaerobic culture (Surgical Swab) (10/17/2025 2:50 PM EST) Culture Result No Anaerobes Isolated in 5 Days [facility] Surgical Swab PERITONEAL FLUID / Unknown 10/17/2025 2:50 PM EST Comment:1. Ascites-anaerobic , aerobic, and fungal Narrative [facility] - 10/22/2025 11:32 AM EST 1. Ascites-anaerobic, aerobic, and fungal 1. Ascites-anaerobic, aerobic, and fungal Vani Winkler MD MICROBIOLOGY - GENERAL ORDER MARYA Final Result [facility] [address] [place] [address], [facility] * (ABNORMAL) TEG-Standard Global Hemostasis (Rapid TEG with Heparin Effect, Contains a Baseline TEG) (10/17/2025 10:19 AM EST) [facility] Citrated Kaolin Reaction Time (TEGHEPARINASE) 7.2 4.6 - 9.1 minutes 10/17/2025 11:27 AM EST [facility] Citrated Rapid Teg Maximum Amplitude (TEGHEPARINASE) <40.0(L) 52.0 - 70.0 mm 10/17/2025 11:27 AM EST [facility] Citrated Functional Fibrinogen Maximum Amplitude (TEGHEPARINASE) 5.8(L) 15.0 - 32.0 mm 10/17/2025 11:27 AM EST [facility] Citrated Kaolin W/Heparinase Reaction Time (TEGHEPARINASE) 6.7 4.3 - 8.3 minutes 10/17/2025 11:27 AM EST [facility] Citrated Kaolin K-Time (TEGHEPARINASE) 2.9(H) 0.8 - 2.1 minutes 10/17/2025 11:27 AM EST [facility] Citrated Kaolin Angle (TEGHEPARINASE) 64.4 63.0 - 78.0 degrees 10/17/2025 11:27 AM EST [facility] Citrated Kaolin Maximum Amplitude (TEGHEPARINASE) <40.0(L) 52.0 - 69.0 mm 10/17/2025 11:27 AM EST [facility] Citrated Functional Fibrinogen- Fibrinogen Level (TEGHEPARINASE) 156.5(L) 278.0 - 581.0 mg/dL 10/17/2025 11:27 AM EST [facility] Whole Blood (Citrate) 10/17/2025 10:19 AM EST 10/17/2025 10:46 AM EST [facility] BLOOD ORDERABLES Final Re sult Performing Organization Address City/[facility]/ZIP Co de Phone Number [facility] [address] [facility] [address] * Hepatitis C RNA, Quant Reflex to Genotyp (10/17/2025 10:19 AM EST) International Units Not Detected IU/mL 10/19/2025 2:12 PM EST [facility] Comment:Test methodology for HCV RNA quantification is an FDA-approved nucleic acid amplification assay. The Lower Limit of Quantitation (LLOQ) is 15 IU/mL. The linear range of the assay is 15-100,000,000 IU/mL. The Limit of Detection (LoD) is 12.0 IU/mL for EDTA plasma. The reference range is Not Detected. IU log10 See Note log 10 IU/mL 10/19/2025 2:12 PM EST [facility] Comment:HCV RNA not detected . Plasma 10/17/2025 10:1 9 AM EST 10/17/2025 11:09 AM EST [facility] BLOOD ORDERABLES Final Re sult Performing Organization Address [facility] Co de Phone Number [facility] [address] * (ABNORMAL) APTT, No Anticoagulant (10/17/2025 10:19 AM EST) aPTT 41.2(H) 25.5 - 35.0 seconds 10/17/2025 11:02 AM EST [facility] Plasma 10/17/2025 10:1 9 AM EST 10/17/2025 10:46 AM EST [facility] BLOOD ORDERABLES Final Re sult Performing Organization Address City/[facility]/ZIP Co de Phone Number [facility] [address] [facility]. [address] * (ABNORMAL) Fibrinogen (10/17/2025 10:19 AM EST) Fibrinogen 116(L) 218 - 406 mg/dL 10/17/2025 11:08 AM EST [facility] Plasma 10/17/2025 10:1 9 AM EST 10/17/2025 10:46 AM EST [facility] ORDER[facility] Final Re sult Performing Organization Address [facility]/ZIP Co de Phone Number [facility] [address] [facility]. [address] * Magnesium, STAT (10/17/2025 10:18 AM EST) Magnesium 1.7 1.5 - 2.5 mg/dL 10/17/2025 11:46 AM EST [facility] Plasma 10/17/2025 10:1 8 AM EST 10/17/2025 10:46 AM EST [facility] BLOOD ORDERABLES Final Re sult Performing Organization Address [facility] Co de Phone Number [facility] [address] [facility]. [address] * (ABNORMAL) Jose-Mims Virus VCA IgG Ab (10/17/2025 10:18 AM EST) Pathologist [facility] EBV VCA IgG Positive( A) Negative 10/17/2025 12:18 PM EST [facility] Comment:Presence of detectab le VCA IgG antibodies. A positive result indicates current or past exposure to Jose-Mims virus. EBV IGG NUM >750.00(H ) 0.00 - 17.99 U/mL 10/17/2025 12:18 PM EST [facility] Serum 10/17/2025 10:1 8 AM EST 10/17/2025 10:46 AM EST [facility] [place] LAB BLOOD ORDERABLES Final Re sult Performing Organization Address City/[facility]/ZIP Co de Phone Number [facility] [address] [facility]. [address] * CMV IgG Antibody (10/17/2025 10:18 AM EST) CMV IgG Negative Negative 10/17/2025 12:16 PM EST [facility] CMV IGG NUM <0.20 0.00 - 0.59 U/mL 10/17/2025 12:16 PM EST [facility] Serum 10/17/2025 10:1 8 AM EST 10/17/2025 10:46 AM EST Kassi INTERIANO LAB BLOOD ORDERABLES Final Re sult [facility] [address] [facility]. [address] * HIV 1+2 Antibody/Antigen with Reflex (10/17/2025 10:18 AM EST) HIV 1+2 AB/AGN Nonreactive Nonreactive 10/17/2025 12:16 PM EST [facility] Serum 10/17/2025 10:1 8 AM EST 10/17/2025 10:46 AM EST Narrative [facility] - 10/17/2025 12:16 PM EST \HIVRNR Ksasi INTERIANO LAB BLOOD ORDERABLES Final Re sult Performing Organization Address City/[facility]/ZIP Co de Phone Number [facility] [address] [facility]. [address] * Hepatitis B Core Antibody (10/17/2025 10:18 AM EST) Hep B Core Total Ab Nonreactive Nonreactive 10/17/2025 12:17 PM EST [facility] Comment:Health Department no tified in accordance with reportable infectious disease guidelines. Serum 10/17/2025 10:1 8 AM EST 10/17/2025 10:46 AM EST Narrative [facility] - 10/17/2025 12:17 PM EST A nonreactive final interpretation indicates that anti-HBc antibodies were not detected in the sample; it is possible that the individual is not infected with HBV. [facility] [place] LAB BLOOD ORDERABLES Final Re sult [facility] [address] [facility]. [address] * Hepatitis C Antibody (10/17/2025 10:18 AM EST) HCV Ab Nonreactive Nonreactive 10/17/2025 12:25 PM EST [facility] Comment:Health Department no tified in accordance with reportable infectious disease guidelines. Serum 10/17/2025 10:1 8 AM EST 10/17/2025 10:46 AM EST [facility] - 10/17/2025 12:25 PM EST Antibodies to HCV not detected; does not exclude the possibility of exposure to HCV. [facility] BLOOD ORDERABLES Final Re sult Performing Organization Address [facility] Co de Phone Number [facility] [address] [facility]. [address] * (ABNORMAL) Hepatitis B Surface Antibody, Quantitati (10/17/2025 10:18 AM EST) Hep B S Ab Reactive( A) Nonreactive 10/17/2025 12:29 PM EST [facility] HBSAB NUMBER 260.00(H) 0.00 - 7.99 mIU/mL 10/17/2025 12:29 PM EST [facility] Serum 10/17/2025 10:1 8 AM EST 10/17/2025 10:46 AM EST Narrative [facility] - 10/17/2025 12:29 PM EST Individual is considered immune to HBV infection. [facility] BLOOD ORDERABLES Final Re sult Performing Organization Address City/[facility]/ZIP Co de Phone Number [facility] [address] [facility]. [address] * Hepatitis B surface antigen (10/17/2025 10:18 AM EST) Hep B Surface Ag Nonreactive Nonreactive 10/17/2025 12:21 PM EST [facility] Comment:Health Department no tified in accordance with reportable infectious disease guidelines. Serum 10/17/2025 10:1 8 AM EST 10/17/2025 10:46 AM EST Narrative [facility] - 10/17/2025 12:21 PM EST Specimen is considered negative for HBsAg. [facility] [place] LAB BLOOD ORDERABLES Final Re sult Performing Organization Address [facility] Co de Phone Number [facility] [address] [place] [address]. [address] * Hepatitis A Antibody Total (10/17/2025 10:18 AM EST) Anti-HAV Total (IgG + IgM) Reactive 10/17/2025 12:22 PM EST [facility] Serum 10/17/2025 10:1 8 AM EST 10/17/2025 10:46 AM EST Narrative [facility] - 10/17/2025 12:22 PM EST HAV antibodies detected [facility] [place] LAB BLOOD ORDERABLES Final Re sult Performing Organization Address [facility] de Phone Number [facility] [address] [place] [address]. [address] * Vitamin D 25 Hydroxy (10/17/2025 10:18 AM EST) Vit D, 25-Hydroxy 39.3 30.0 - 100.0 ng/mL 10/17/2025 12:15 PM EST [facility] Comment: Vitamin D deficiency has been defined by the [place] of Medicine (IOM) and an Endocrine Society [...] Endocrine Society clinical practice guideline. JCEM. 2010; 96(0):1911-30. Serum 10/17/2025 10:1 8 AM EST 10/17/2025 10:46 AM EST Kassi INTERIANO LAB BLOOD ORDERABLES Final Re sult [facility] [address] * Antibody Screen (10/17/2025 10:18 AM EST) Antibody Screen Negative 10/17/2025 11:09 AM EST [facility] Blood 10/17/2025 10:1 8 AM EST 10/17/2025 10:26 AM EST Narrative [facility] - 10/17/2025 11:17 AM EST Testing performed by [facility] Transfusion Service Kassi INTERIANO BLOOD BANK TEST ORDERABLES Fi nal Result Performing Organization Address City/[facility]/ZIP Co de Phone Number [facility] [address] [facility]. [address] * ABO/Rh (10/17/2025 10:18 AM EST) ABO Grouping A 10/17/2025 10:53 AM EST [facility] Rh Type Positive 10/17/2025 10:53 AM EST [facility] Blood 10/17/2025 10:1 8 AM EST 10/17/2025 10:26 AM EST Kassi INTERIANO BLOOD BANK TEST ORDERABLES Fi nal Result Performing Organization Address City/[facility]/ZIP Co de Phone Number [facility] [address] [facility]. [address] * (ABNORMAL) Hepatic Function Panel (10/17/2025 10:18 AM EST) Total Bilirubin 4.9(H) 0.0 - 1.5 mg/dL 10/17/2025 11:47 AM EST [facility] Bilirubin, Direct 1.35(H) 0.00 - 0.40 mg/dL 10/17/2025 11:47 AM EST [facility] AST 39 13 - 39 U/L 10/17/2025 11:47 AM EST [facility] ALT 27 7 - 52 U/L 10/17/2025 11:47 AM EST [facility] Alkaline Phosphatase 143(H) 36 - 125 U/L 10/17/2025 11:47 AM EST [facility] Total Protein 6.5 6.4 - 8.9 g/dL 10/17/2025 11:47 AM EST [facility] Albumin 2.3(L) 3.5 - 5.7 g/dL 10/17/2025 11:47 AM EST [facility] Bilirubin, Indirect 3.55(H) 0.00 - 1.10 mg/dL 10/17/2025 11:47 AM EST [facility] Plasma 10/17/2025 10:1 8 AM EST 10/17/2025 10:46 AM EST us Kassi INTERIANO LAB BLOOD ORDERABLES Final Re sult [facility] [address] [id number] * (ABNORMAL) Renal Function Panel w/EGFR (10/17/2025 10:18 AM EST) Sodium 141 133 - 146 mmol/L 10/17/2025 11:47 AM EST [facility] Potassium 3.3(L) 3.5 - 5.3 mmol/L 10/17/2025 11:47 AM EST [facility] Chloride 110 98 - 110 mmol/L 10/17/2025 11:47 AM EST [facility] CO2 29 21 - 33 mmol/L 10/17/2025 11:47 AM EST [facility] Comment:High lactate dehydro genase concentrations in patient samples may cause falsely increased bicarbonate results. If markedly elevated LDH is observed or suspected, please assess results in conjunction with patient`s clinical presentation. In cases of discrepant results, consider evaluating CO2 in with a blood gas order. Anion Gap 2(L) 3 - 16 mmol/L 10/17/2025 11:47 AM EST [facility] BUN 13 7 - 25 mg/dL 10/17/2025 11:47 AM EST [facility] Creatinine 0.81 0.60 - 1.30 mg/dL 10/17/2025 11:47 AM EST [facility] Glucose 81 70 - 100 mg/dL 10/17/2025 11:47 AM EST [facility] Calcium 8.1(L) 8.6 - 10.3 mg/dL 10/17/2025 11:47 AM EST [facility] Phosphorus 2.8 2.1 - 4.7 mg/dL 10/17/2025 11:47 AM EST [facility] Albumin 2.3(L) 3.5 - 5.7 g/dL 10/17/2025 11:47 AM EST [facility] Osmolality, Calculated 291 278 - 305 mOsm/kg 10/17/2025 11:47 AM EST [facility] EGFR >90 10/17/2025 11:47 AM EST [facility] Comment: As of 2022, [...] INTERIANO LAB BLOOD ORDERABLES Final Re sult [facility] [address] * Hemoglobin A1C (10/17/2025 10:18 AM EST) Hemoglobin A1C 4.0 4.0 - 5.6 % 10/17/2025 1:42 PM EST [facility] Comment: Hemoglobin A1c Interpretation Guidelines: [...] ORDERABLES Final Re sult Performing Organization Address City/[facility]/ZIP Co de Phone Number [facility] [address] * (ABNORMAL) Venous Blood Gas, Line/Syringe, STAT (10/17/2025 10:18 AM EST) PH-Line Draw 7.37 7.32 - 7.42 10/17/2025 10:27 AM EST [facility] PCO2-Line Draw 46 41 - 51 mm Hg 10/17/2025 10:27 AM EST [facility] PO2-Line Draw 29 25 - 40 mm Hg 10/17/2025 10:27 AM EST [facility] HCO3-Line Draw 24 24 - 28 mmol/L 10/17/2025 10:27 AM EST [facility] CO2 Content-Line Draw 28 25 - 29 mmol/L 10/17/2025 10:27 AM EST [facility] Base Excess-Line Draw 0.9 -2.0 - 3.0 mmol/L 10/17/2025 10:27 AM EST [facility] %HBO2-Line Draw 38.5(L) 40.0 - 70.0 % 10/17/2025 10:27 AM EST [facility] Carboxyhgb-Rebecca e Draw 1.4 0.0 - 2.0 % 10/17/2025 10:27 AM EST [facility] Comment: CARBOXYHEMOGLOBIN (CO) REFERENCE RANGES: Non-Smokers: <2 % Smokers: <8 % TOXIC: >20 % Methemoglobin- Line Draw 0.6 0.0 - 1.5 % 10/17/2025 10:27 AM EST [facility] Blood, Venous 10/17/2025 10: 18 AM EST 10/17/2025 10:24 AM EST Kassi INTERIANO LAB BLOOD ORDERABLES Final Re sult Performing Organization Address [facility] de Phone Number [facility] [address] [facility]. [address] * (ABNORMAL) Protime-INR (10/17/2025 10:18 AM EST) Protime 21.7(H) 12.1 - 15.1 seconds 10/17/2025 11:01 AM EST [facility] INR 1.8(H) 0.9 - 1.1 10/17/2025 11:01 AM EST [facility] Comment: RECOMMENDED THERAPEUTIC RANGES USING INR : Stable oral anticoagulant therapy: 2.0 - 3.0 Mechanical prosthetic heart valve: 2.5 - 3.5 Recurrent acute myocardial infarction: 2.5 - 3.5 Plasma 10/17/2025 10:1 8 AM EST 10/17/2025 10:46 AM EST Kassi INTERIANO LAB BLOOD ORDERABLES Final Re sult Performing Organization Address [facility] Co de Phone Number [facility] [address] [facility]. [address] * (ABNORMAL) Differential (10/17/2025 10:18 AM EST) Neutrophils Relative 45.0 40.0 - 80.0 % 10/17/2025 10:59 AM EST [facility] Lymphocytes Relative 34.7 15.0 - 45.0 % 10/17/2025 10:59 AM EST [facility] Monocytes Relative 12.9(H) 0.0 - 12.0 % 10/17/2025 10:59 AM EST [facility] Eosinophils Relative 6.4 0.0 - 8.0 % 10/17/2025 10:59 AM EST [facility] Basophils Relative 1.0 0.0 - 1.0 % 10/17/2025 10:59 AM EST [facility] nRBC 0 0 - 0 /100 WBC 10/17/2025 10:59 AM EST [facility] Neutrophils Absolute 1,845 1,520 - 8,640 /uL 10/17/2025 10:59 AM EST [facility] Lymphocytes Absolute 1,423 570 - 4,860 /uL 10/17/2025 10:59 AM EST [facility] Monocytes Absolute 529 0 - 1,296 /uL 10/17/2025 10:59 AM EST [facility] Eosinophils Absolute 262 0 - 864 /uL 10/17/2025 10:59 AM EST [facility] Basophils Absolute 41 0 - 108 /uL 10/17/2025 10:59 AM [facility] Whole Blood 10/17/2025 10:1 8 AM EST 10/17/2025 10:46 AM EST Kassi INTERIANO LAB BLOOD ORDERABLES Final Re sult Performing Organization Address City/State/[facility] Co de Phone Number [facility] [address] * (ABNORMAL) CBC (10/17/2025 10:18 AM EST) WBC 4.1 3.8 - 10.8 10E3/uL 10/17/2025 10:59 AM EST [facility] RBC 3.32(L) 4.20 - 5.80 10E6/uL 10/17/2025 10:59 AM EST [facility] Hemoglobin 11.2(L) 13.2 - 17.1 g/dL 10/17/2025 10:59 AM EST [facility] Hematocrit 32.9(L) 38.5 - 50.0 % 10/17/2025 10:59 AM EST [facility] MCV 99.1 80.0 - 100.0 fL 10/17/2025 10:59 AM EST [facility] MCH 33.8(H) 27.0 - 33.0 pg 10/17/2025 10:59 AM EST [facility] MCHC 34.1 32.0 - 36.0 g/dL 10/17/2025 10:59 AM EST [facility] RDW 17.3(H) 11.0 - 15.0 % 10/17/2025 10:59 AM EST [facility] Platelets 61(L) 140 - 400 10E3/uL 10/17/2025 10:59 AM EST [facility] MPV 8.2 7.5 - 11.5 fL 10/17/2025 10:59 AM EST [facility] Whole Blood 10/17/2025 10:1 8 AM EST 10/17/2025 10:46 AM EST Kassi INTERIANO LAB BLOOD ORDERABLES Final Re sult Performing Organization Address City/[facility] Co de Phone Number [facility] [address] [place] [address] * Toxoplasma gondii Antibody, IgG (10/17/2025 10:18 AM EST) Toxoplasma Gondii IgG <3.0 0.0 - 7.1 IU/mL 10/18/2025 4:54 AM EST [facility] Comment: Negative <7.2 Equivocal 7.2 - 8.7 Positive >8.7 Serum 10/17/2025 10:1 8 AM EST 10/18/2025 5:06 AM EST Narrative [facility] - 10/18/2025 5:06 AM EST PERFORMED AT: [address] [id number] LICENSED ACUPUNCTURIST: Mateo Miller, PhD PHONE: [phone] Kassi INTERIANO LAB BLOOD ORDERABLES Final Re sult [facility] [address] [place] [address], [facility] * X-ray Portable Chest (10/17/2025 [...] in sodium chloride 0.9% 100 mL IVPB ([id number]) 1 g, Intravenous, at 200 mL/hr, Every 6 hours, First dose on Wed10/17/25 at 2300, For 7 doses, Dosage may need to be adjusted for renal dysfunction. Full dose is 1g IV q6h Use [id number] Adapter - Mix Thoroughly Before Administration, Post-op [...] paralyzed: Do not titrate - follow policy [id number]. Start infusion if unable to maintain goal [...] 10/18/2025 7:02 AM EST 0.03 Units/min 4.5 mL/grinder set up operator thread Infusion Pump 10/17/2025 10:54 PM EST 0.03 [...] documented as of this encounter Care Teams Satellite Technician Relationship Specialty Start Date End Date System, Provider Not In PCP - General 09/10/25 10/24/25 documented as of this encounter
--- OUTSIDE RECORDS SUMMARY | 2025-10-17 12:00 | XMS_ITS | Encounter Summary ---
Author Organization [facility] Address [address] [place] [address] Care Team Providers Care Video Journalist Name Role Phone System, Provider Not In [...] release of HIV test results or diagnoses. [id number] Health Reason for Visit * Auth/Cert (Routine) Specialty Diagnoses / Procedures Referred By Contru t Referred To Contact Diagnoses TRANSPLANT LIVER Procedures TRANSPLANT LIVER [facility] PERIOP [address] [place] [address] Phone: tel: Referral ID Status Reason Start Date Expiration Date Visits Re quested Visits Authorized [id number] 1 1 Encounter Details Date Type Department Care Team (Late st Contact Info) Description 10/17/2025 12:00 PM EST - 10/17/2025 8:12 PM EST Surgery [facility] PERIOP [address] [place] [address] Vani Winkler MD [facility] [place] [id number] TRANSPLANT LIVER Surgery Details Date/Time Status Location [...] living in a fdc (including now)? No 10/17/2025 Utilities Answer Date [...] of this encounter Discharge Summaries * February SILVIO Zimmerman - 10/22/2025 12:26 PM EST [facility] Care Management Discharge Summary Patient name: David Serrano Patient : 1960 Age: 65 y.o. Gender: male Patient emergency contact: Extended Emergency Contact Information Primary Emergency Contact: Stacy Serrano Address: [address] [place] [address] Mobile Relation: Spouse Attending provider: Vani Winkler MD Primary care physician: PROVIDER NOT IN SYSTEM The MD has indicated that the patient is ready for discharge. David Serrano was referred and accepted at [facility] ([phone]) for PT/OT and SN (lab draws) . [...] Services at Home post discharge: [facility]ter [facility] Name/Phone # post discharge: [facility] ([phone]) Home Health Services Types at Discharge: PT/OT/CANDY FORMING MACHINE OPERATOR, Senior Living (penitentiary for lab draws.) Citlaly Zimmerman RN/SAJAN [phone] documented in this encounter Discharge Instructions * [...] kept under 2 gm/day. Please discuss withyour learning and development coordinator if you have any question about appropriate dose to take. Other Instructions: Call post-liver transplant clinic with questions [phone] or call [facility] at [phone] and ask for the liver pricing coordinator medical professionals if you experience any of the following: [...] Date and time as instructed by your pricing coordinator in liver transplant clinic in [facility], 3rd floor or Video Visit. PLEASE GET [...] Immunosuppression schedule as per Education Note by pricing coordinator earlier this admission. Reviewed discharge medications [...] in clinic? (If significant deficits, communicate with pricing coordinator): Standard continual education Future medications to [...] Cori Womack PharmD Solid Organ Transplant Clinical Rotary Dump Operator Contact via FileString * Cori Womack PharmD - 10/22/2025 4:06 [...] Cori Womack PharmD Solid Organ Transplant Clinical Rotary Dump Operator Contact via FileString * Jen Mckeon, PT - 10/22/2025 12:10 PM EST Physical Therapy Treatment Name: David Serrano : 1960 Attending Physician: Vani Winkler MD Admission Diagnosis: TRANSPLANT LIVER Date: 10/22/2025 [facility] [address] Reviewed Pertinent hospital course: Yes Hospital Course [...] Long-term goal to be met by: 11/02/25 Investment Banker Goal : =STG Patient/Family Education Educated patient [...] LIVER; Surgeon: Vani Winkler MD; Location: [facility]; Service: Transplant; Laterality: N/A; [1] Patient Active [...] the Caprini Risk Score of 10 and [facility] transplant protocol, I recommend discharging on heparin 5,000 units subcutaneously q8h (facility) or Eliquis 2.5 mg PO BID (home) for 30 days total. Endof chemoprophylaxis: 11/17/25. Cori Womack PharmD Solid Organ Transplant Clinical Rotary Dump Operator Contact via [employer] Secure Chat * Lary Ding, OT - 10/19/2025 11:03 AM EST Occupational Therapy Initial Assessment Name: David Serrano : 1960 Attending Physician: Vani Winkler MD Admission Diagnosis: TRANSPLANT LIVER Date: 10/19/2025 Room: [place] [address]/[place] [address] Reviewed Pertinent hospital course: Yes Hospital Course [...] will complete lower body dressing: Moderate assistance Investment Banker Goal : Pt will tolerate a bathing assessment MCFP goal to be met in: 2 weeks [...] LIVER; Surgeon: Vani Winkler MD; Location: [facility]; Service: Transplant; Laterality: N/A; [1] Patient Active Problem List Diagnosis Alcoholic cirrhosis (CMS-HCC) Ascites Hepatic encephalopathy (CMS-HCC) Esophageal varices (CMS-HCC) Pre-transplant evaluation for chronic liver disease Encounter for pre-transplant evaluation for liver transplant * Jen Mckeon, PT - 10/19/2025 10:24 AM EST Physical Therapy Initial Assessment Name: David Serrano : 1960 Attending Physician: Vani Winkler MD Admission Diagnosis: TRANSPLANT LIVER Date: 10/19/2025 Room: [place] [address]/[place] [address] Reviewed Pertinent hospital course: Yes Hospital Course [...] LIVER; Surgeon: Vani Winkler MD; Location: [facility]; Service: Transplant; Laterality: N/A; [1] Patient Active Problem List Diagnosis Alcoholic cirrhosis (CMS-HCC) Ascites Hepatic encephalopathy (CMS-HCC) Esophageal varices (CMS-HCC) Pre-transplant evaluation for chronic liver disease Encounter for pre-transplant evaluation for liver transplant * Leticia Lomeli MD - 10/18/2025 12:58 PM EST Transplant Surgery Progress Note Name: David Serrano CSN: [id number] Date: 10/18/2025 12:58 PM OR Date: 10/17/2025 [...] 0659 10/18/25 07 - 10/19/25 0659 Shift 7552-7042 2211-9565 5722-7131 24 Hour Total 0168-9785 0374-5161 3811-7164 24 Hour Total INTAKE I.V.(mL/kg) 8000(80.2) 394.1(3.9) [...] 30 60 30 30 IV Piggyback 120 260 239 1124 62.6 62.6 Volume (mL) (methylPREDNISolone sodium succinate (SOLU-medrol) 500 mg in sodium chloride 0.9 % 100 mL IVPB) 100 100 Volume (mL) (AMPicillin 2 g in sodium chloride 0.9% 100 mL IVPB (Wkei8Unp)) 100 200 300 Volume (mL) (albumin human bottle 5%) 500 500 Volume (mL) (albumin human bottle 25%) 50 50 Volume (mL) (AMPicillin 1 g in sodium chloride 0.9% 100 mL IVPB (Tvoj2Iec)) 97.4 97.4 Volume (mL) (mycophenolate (CELLCEPT) 500 [...] IV Push) 20 20 Shift Total(mL/kg) 120(1.2) 42391(138.6) 1105.1(11.1) 86401.1(150.9) 143.4(1.4) 143.4(1.4) OUTPUT Urine(mL/kg/hr) 1850(2.3) 1000(1.3) 2850(1.2) [...] 2 Abdomen Inferior;Lateral;Left) 100 300 400 Blood 73581 91418 Est Blood Loss 25074 70798 Shift Total(mL/kg) 96735(130.5) 1550(15.5) 65717(146.1) 355(3.6) 355(3.6) Weight (kg) 99.8 99.8 99.8 [...] EXAM: US ABDOMEN LIMITED EXAM: US DUPLEX BIL-MITXVJ-YBPTUNU COMPLETE INDICATION: Post-op liver transplant Day 1 [...] at 10/18/2025 9:53 AM EST US Duplex Ppy-Mlp-Lifqcpb Comp Result Date: 10/18/2025 EXAM: US ABDOMEN LIMITED EXAM: US DUPLEX QBK-[id number]-ZPZGIHL COMPLETE INDICATION: Post-op liver transplant Day 1 [...] below level of diaphragms and outside the azqdm-fi-dfrh. Right internal jugular approach pulmonary artery catheter [...] Dispo: JAJAU LETICIA LOMELI MD Transplant Surgery [facility] Surgery Resident Cosigned by Vani Winkler [...] Cori Womack PharmD Solid Organ Transplant Clinical Rotary Dump Operator Contact via [employer] Secure Chat * Karen [place], BK - 10/18/2025 5:32 AM EST SBT started at 0435 completed at 0520 Patient on +5 and 40% RR: 7-12 Vt: 679-940 RSBI: 10-12 AB.34/48/84/25 Patient placed on Delta 5 post SBT documented in this encounter H&P Notes * Aspen Parr MD - 10/17/2025 10:27 AM EST Transplant Surgery History and Physical Patient: David Serrano CSN: [id number] History CC: ESLD HPI: Dvaid Serrano is a 65 y.o. male with [...] Resource Strain: Low Risk (06/15/2025) Received from [facility] Overall Financial Resource Strain (CARDIA) How hard is it for you to pay for the very basics like food, housing, medical care, and heating?: Not hard at all Food Insecurity: No Food Insecurity (06/15/2025) Received from [facility] Hunger Vital Sign Within the past 12 months, you worried that your food would run out before you got the money to buymore.: Never true Within the past 12 months, the food you bought just didn't last and you didn't have money to get more.: Never true Transportation Needs: No Transportation Needs (06/15/2025) Received from [facility] PRAPARE - Transportation In the past 12 months, has lack of transportation kept you from medical appointments or from getting medications?: No In the past 12 months, has lack of transportation kept you from meetings, work, or from getting things needed for daily living?: No Physical Activity: Inactive (06/15/2025) Received from [facility] Exercise Vital Sign On average, how many days per week do you engage in moderate to strenuous exercise (like a brisk walk)?: 0 days On average, how many minutes do you engage in exercise at this level?: 0 min Stress: No Stress Concern Present (06/15/2025) Received from [facility] [place] of Occupational Health - Occupational Stress Questionnaire Do you feel stress - tense, restless, nervous, or anxious, or unable to sleep at night because yourmind is troubled all the time - these days?: Only a little Social Connections: Socially Integrated (06/15/2025) Received from [facility] Social Connection and Isolation Panel In a typical week, how many times do you talk on the phone with family, friends, or neighbors?: More than three times a week How often do you get together with friends or relatives?: More than three times a week How often do you attend rastafari or mormonism services?: More than 4 times per year Do you belong to any clubs or organizations such as rastafari groups, unions, fraternal [...] Housing Stability: Low Risk (06/15/2025) Received from [facility] Housing Stability Vital Sign In the last 12 months, was there a time when you were not able to pay the mortgage or rent on time?: No In the past 12 months, how many times have you moved where you were living?: 0 At any time in the past 12 months, were you homeless or living in a fdc (including now)?: No FH: No family history [...] admitted to SICU post-op. ASPEN PARR MD [facility] Surgery Liver Transplant Pager: [phone] 10:28 AM 10/17/2025 Cosigned by Vani [...] Name: David Serrano Date: 1960 Billing #: [id number] Date of Procedure: 10/17/2025 Diagnosis: Chronic Hepatic [...] branch patch. Ligation of left renal vein. Obnf-cy-cigb anastomosis performed without stent. Portal Flow Modulation [...] donor was ABO O and UNOS ID [id number], Match [place] [id number]. This was a 56 yearold brain donor [...] available help, Dr. Nugent served as assistant professor of surgery surgeon. Procedure: Back bench preparation of donor [...] After completion of the outflow anastomosis, a Sinhala clamp was placed across the donor suprahepatic [...] no further bleeding, we then performed a rktd-cp-yqoh anastomosis. There was no stent placed. This [...] Name: David Serrano Date: 1960 Billing #: [id number] Date of Procedure: 10/17/2025 Diagnosis: Chronic Hepatic Failure without coma Procedure: 1. Back Bench Preparation Donor Liver Attending surgeons: Felice Nugent III, MD Diagnostic Technician Surgeon(s): Morena Haley MD Indications for Procedure: This is a 65 y.o.-year-old male who has alcohol and A1AT liver disease and chronic liver failure complicated by ascites and HE with a MELD score of 20. A donor organ became available. This donor was ABO O and UNOS ID [id number], Match Run [id number]. This was a 56 yearold brain donor [...] MD Giulia Bencini, MD Anesthesia: General Staff: Unit Control Worker: Mita Hernandez RN; Aspen Coleman RN Relief Unit Control Worker: Claritza Mckinnon RN; Jonatan De La O RN; Clair Sanders RN Scrub Person: Samson Mcbride RN Fellow: Chelsie Haley MD Float: Naida Woodruff RN; Jyotsna Singleton RN; Farzana Hamilton; Lizz Cota RN Resident: Aspen Parr MD Estimated Blood Loss: 11 L Specimens: Sycuan liver and gallbladder Left liver core needle biopsy Right liver core needle biopsy Peritoneal fluid for culture Drains: Drain 1 Abdomen Inferior;Lateral;Right (Active) Number of days: 0 Drain 2 Abdomen Inferior;Lateral;Left (Active) Number of days: 0 IUC (Iniguez) 16 Fr. (Active) Number of days: 0 Transplant-Specific Information UNOS ID: [id number] Cross-clamp: 10/17/25 1250 Out of ice: 10/17/25 [...] 1:42 PM ESTAssociated Order(s): IP CONSULT TO PRIVATE BRANCH EXCHANGE INSTALLER [facility] Transplant Discharge Education Note Assessment: Received [...] 4 - Demonstrates understanding/competency Naomy Gomes RN, MSN,[facility][NOTE 3] Diabetes Education Office [phone] Schedule: M-F 8:00am-4:30pm * Oskar Arango, FLEX - 10/22/2025 9:08 AM EST TXP - Follow-up [facility] Medical Nutrition Therapy Reason(s) for Completion: [...] based on DBW of 70.4 kg) Kcals/day: 2787-0280 (25-30 kcal/kg) Protein g/day: 105-140 (1.5-2.0 g/kg) [...] LIVER; Surgeon: Vani Winkler MD; Location: [facility]; Service: Transplant; Laterality: N/A; Scheduled Meds: acetaminophen [...] PCP: PROVIDER NOT IN SYSTEM Home Pharmacy: [facility] - [place], [place] - [address] [place] [address] [facility] [address] [facility] [address] [facility] [address] [facility] [address] [facility] [address] [facility] [address] Pertinent Medications Anticoagulation therapy: Yes Anticoagulant (Name [...] children and their names: 1- Lan Serrano ([phone]) and Gloria Banegas ([phone]) Relative Search Completed: Yes Demographics Correct:: Yes [...] Information Primary Emergency Contact: Stacy Serrano Address: [address] [place] [address] Mobile Relation: Spouse Support Systems Legal Status: HCPOA Name of Guardian/POA/ Payee and Phone Number: Stacy Serrano ([phone]) Primary Caregiver: Self, Spouse Caregiver name/phone number: Stacy Serrano ([phone]) Times of available support: Total 24/7 hands on (add comment) (Daughter and Friend willing to assist in pt post op care.) Marital Status: Number of children and their names: 1- Lan Serrano ([phone]) and Gloria Banegas ([phone]) Relative Search Completed: Yes Demographics Correct:: Yes [...] living with spouse in a home in [place], [place]. Pt reports ~2 steps into residence and 0 inside residence. Pt reports having 2 children- Lan Serrano ([phone]) and Gloria Banegas ([phone]). Pt denies any concerns for safety or [...] Stacy Kiesha. LNOK and HCPOA: Stacy Roach ([phone]) PCP: Myles Mosley Transportation: family Advance Directives (For Healthcare) Advance Directive: Patient has advance directive, copy in chart Type of Healthcare Directive: Durable power of prosecuting attorney for health care Healthcare Agent Appointed: [...] 550 mg BID 24 hour events: - [place] removed, introducer remains - Extubated to NC, [...] LIVER; Surgeon: Vani Winkler MD; Location: [facility]; Service: Transplant; Laterality: N/A; Home Medications Medication [...] ratio: No PaO2 result within 12 hours. [place] body weight: [place] body weight: 63.8 kg (140 lb 10.5 [...] in sodium chloride 0.9% 100 mL IVPB (Gttv4Djm) 1 g Every 6 hours 10/17/2025 10/19/2025 Admin Instructions: Dosage may need to be adjusted for renal dysfunction. Full dose is 1g IV q6h Use Egtg7Hem Adapter - Mix Thoroughly Before Administration Notes to Pharmacy: On cost recorder estimated creatinine clearance is 101.9 mL/min [...] iniguez PT/OT: pending. PT Recs: OT Recs: CANDY FORMING MACHINE OPERATOR Recs: Dispo: Remain in SICU EVELYN GALINDO [...] Pre-op MELD 20. Intra-operative course notable for ymtcoukyhu0G ascites. EBL 11L, received 03/19//, 2.4L cell-saver, [...] SATURATION ARTERIAL 97 100 PF ratio: 210 [place] body weight: [place] body weight: 63.8 kg (140 lb 10.5 [...] 10/18/2025 0700 Gross per 24 hour Intake 20842.44 ml Output 89481 ml Net 472.44 ml IVF: acetylcysteine (ACETADOTE) [...] in sodium chloride 0.9% 100 mL IVPB (Gkjt7Rmb) 1 g Every 6 hours 10/17/2025 10/19/2025 Admin Instructions: Dosage may need to be adjusted for renal dysfunction. Full dose is 1g IV q6h Use Mogm1Kig Adapter - Mix Thoroughly Before Administration Notes to Pharmacy: On cost recorder estimated creatinine clearance is 101.9 mL/min (based on SCr of 0.81 mg/dL). Route: Intravenous Linked Group 1: Placed in And Linked Group AMPicillin 2 g in sodium chloride 0.9% 100 mL IVPB (Nvuv3Lhe) (Completed) 2 g Once 10/17/2025 10/17/2025 Admin Instructions: Begin infusion 20-60 minutes prior to incision Use Iwut6Mop Adapter - Mix Thoroughly Before Administration Notes to Pharmacy: On cost recorder estimated creatinine clearance is 98.3 mL/min [...] Best Verbal Response: 1,Best Motor Response: 6 Spencer Coma Scale Score: 10 No data found. [...] 1 PT/OT: pending. PT Recs: OT Recs: CANDY FORMING MACHINE OPERATOR Recs: Dispo: Remain in SICU. DUARTE EL [...] Pre-op MELD 20. Intra-operative course notable for klbnkkxrif7E ascites. EBL 11L, received ///, 2.4L cell-saver, [...] 10/18/2025 0758 Gross per 24 hour Intake 46178.34 ml Output 98400 ml Net 484.34 ml SKIN/MUSCULOSKELETAL: No acute [...] CONSULT TO NUTRITION SERVICES TXP - Initial [facility] Medical Nutrition Therapy Reason(s) for Completion: [...] based on DBW of 70.4 kg) Kcals/day: 2220-5549 (25-30 kcal/kg) Protein g/day: 105-140 (1.5-2.0 g/kg) [...] Dietitian - Solid Organ Transplant Contact via [employer] Chat [1] Allergies Allergen Reactions Lisinopril Other [...] O2 SATURATION ARTERIAL 100 PF ratio: 270 [place] body weight: [place] body weight: 63.8 kg (140 lb 10.5 [...] 10/17/2025 2300 Gross per 24 hour Intake 15857.34 ml Output 87052 ml Net 840.34 ml IVF: fentanyl (SUBLIMAZE) [...] in sodium chloride 0.9% 100 mL IVPB (Tpgc9Eau) 1 g Every 6 hours 10/17/2025 10/19/2025 Admin Instructions: Dosage may need to be adjusted for renal dysfunction. Full dose is 1g IV q6h Use Gtlc3Jzw Adapter - Mix Thoroughly Before Administration Notes to Pharmacy: On cost recorder estimated creatinine clearance is 101.9 mL/min (based on SCr of 0.81 mg/dL). Route: Intravenous Linked Group 1: Placed in And Linked Group AMPicillin 2 g in sodium chloride 0.9% 100 mL IVPB (Xgwr2Wef) (Completed) 2 g Once 10/17/2025 10/17/2025 Admin Instructions: Begin infusion 20-60 minutes prior to incision Use Bjlf3Mbi Adapter - Mix Thoroughly Before Administration Notes to Pharmacy: On cost recorder estimated creatinine clearance is 98.3 mL/min [...] Best Verbal Response: 5,Best Motor Response: 6 Spencer Coma Scale Score: 15 No data found. [...] 1 PT/OT: pending. PT Recs: OT Recs: CANDY FORMING MACHINE OPERATOR Recs: Dispo: Remain in SICU. DUARTE EL [...] Patient will remain free of falls Goal: Uriah Fall Precautions Outcome: Adequate for Discharge Problem: [...] intervention. Outcome: Adequate for Discharge Problem: Non-violent, guw-ugud-dctsfrusrog restraints Description: Less restrictive alternative interventions will [...] protection of medical procedures, or protection of clinical medical assistant access. Outcome: Adequate for Discharge [...] 1960 Age: 65 y.o. Gender: male SSN: [id number] Address: [address] [place], [place] [address] Phone number: [phone] Patient emergency contact: Extended Emergency Contact Information Primary Emergency Contact: Stacy Serrano Address: [address] [place] [address] [place] Relation: Spouse Date of admission: 10/17/2025 Date of discharge: 10/22/2025 Attending provider: Lane Troy MD Primary care physician: PROVIDER NOT IN SYSTEM Code status: Full Code Allergies: Allergies[1] Insurance Information Insurance Information Aldis/MDdatacor Phone: -- Subscriber: Kiesha David Subscriber#: [id number] Group#: [id number] Precert#: -- Authorization#: [id number] Effective Date: -- TRANSPLANT GLOBAL/TRANSPLANT GLOBAL Phone: -- Subscriber: Kiesha David Subscriber#: [id number] Group#: -- Precert#: -- Authorization#: [id number] Effective Date: -- Diagnoses Present on Admission [...] Gelatein Plus- clear thickened, gelatin high protein ([facility] only) Regular Diet Services Required Senior Living: vital signs, med management, lab draws Physical [...] scale: Blood glucose 150-199 mg/dL =1units, Blood xzmajmo153-302 mg/dL =2 units, Blood glucose 250-299 mg/dL [...] Your Medications These medications were sent to [facility] [place] [id number] Hours: Wednesday - Wednesday: 8:00AM - 6:00PM [...] Fax results to liver transplant clinic at [phone]. NURSE VISIT: Please check vitals and assess/monitor [...] effort and are for medical reasons or mormonism services or infrequently or short duration when for other reasons) due to deconditioning it would be a taxing effort to receive outpatient services. My signature below is to certify that this patient is under my care and that I, or nurse practitioner, or a physician assistant professor of surgery working with me, had a gnjy-ci-zjsh encounter with this is patient on: 10/22/2025 Follow-up Appointments and Post Hospital Discharge Physician Name Future Appointments Date Time Provider Department Center 10/30/2025 9:00 AM [facility], [facility] [address] [facility] [address] [facility] [address] Discharging Physician Signature and Credentials Discharging Physician: Electronically signed by LAISHA HERNANDEZ 10/22/2025, 1:32 PM Physician to follow up Information PCP: PROVIDER NOT IN SYSTEM PCP address: None PCP phone number: None PCP fax number: None Follow-up: Liver Transplant Clinic and their phone / fax is: [phone] / [phone] Radiological Defense Officer and Credentials Provider/Company Name and Contact Number: Community Services at Discharge Community Services at Home post discharge: Home Health Shelter [facility] Name/Phone # post discharge: [facility] ([phone]) Home Health Services Types at Discharge: PT/OT/CANDY FORMING MACHINE OPERATOR, Senior Living (penitentiary for lab draws.) Radiological Defense Officer Name and Telephone Number: Citlaly Zimmerman RN/CM [phone] [1] Allergies Allergen Reactions Lisinopril Other (See [...] to patients area and insurance. Kamlesh Sanchez Insurance Defense Attorney Diagnostic Technician Care Management Services [phone] * Plan of Care - Evelyn Galindo [...] Bush RN - 10/18/2025 3:55 PM EST [facility] Case Management/Social Work Department Progress Note [...] PCP: PROVIDER NOT IN SYSTEM Home Pharmacy: [facility] - [place] [place] [facility] [address] [facility] [address] [facility] [address] [place] [address] [facility] [address] [facility] [address] [facility] [address] [facility] [address] [facility] [address] [facility] [id number] Medical Insurance Coverage: Payor: ANTHEM / Plan: [...] discharge planning needs. TAMIA BUSH RN Cell [phone] * Plan of Care - Angela Tamez [...] Patient will remain free of falls Goal: Uriah Fall Precautions Outcome: Progressing Problem: Daily Care [...] pain management intervention. Outcome: Progressing Problem: Non-violent, ark-eewj-jxawtrjzhkg restraints Description: Less restrictive alternative interventions will [...] protection of medical procedures, or protection of clinical medical assistant access. Outcome: Progressing Problem: Knowledge [...] Patient will remain free of falls Goal: Uriah Fall Precautions Outcome: Progressing Problem: Daily Care [...] pain management intervention. Outcome: Progressing Problem: Non-violent, sgh-imkl-ydtmicwvkqv restraints Description: Less restrictive alternative interventions will [...] protection of medical procedures, or protection of clinical medical assistant access. Outcome: Progressing Patient in [...] Priority Date/Time Associated Diagnosis Comments US DUPLEX [id number] COMPLETE STAT 10/22/2025 10:24 AM EST US [...] Routine 10/18/2025 10:29 AM EST US DUPLEX [id number] COMPLETE STAT 10/18/2025 9:35 AM EST US [...] in this encounter Results * US Duplex Vcb-Taz-Hbaperq Comp (10/22/2025 10:24 AM EST) Anatomical Region [...] EXAM: US ABDOMEN COMPLETE EXAM: US DUPLEX [id number] COMPLETE INDICATION: Post-op liver transplant DATE: 10/22/2025 [...] EXAM: US ABDOMEN COMPLETE EXAM: US DUPLEX [id number] COMPLETE INDICATION: Post-op liver transplant DATE: 10/22/2025 [...] EXAM: US ABDOMEN COMPLETE EXAM: US DUPLEX [id number] COMPLETE INDICATION: Post-op liver transplant DATE: 10/22/2025 [...] EXAM: US ABDOMEN COMPLETE EXAM: US DUPLEX [id number] COMPLETE INDICATION: Post-op liver transplant DATE: 10/22/2025 [...] - 100 mg/dL 10/22/2025 10:24 AM EST [facility] Blood 10/22/2025 10:2 3 AM EST 10/22/2025 10:23 AM EST Vani Winkler MD POINT OF CARE TEST ORDERABLE S Final Result Performing Organization Address [facility] de Phone Number [facility] [address] [facility]. [address] * Tacrolimus level (10/22/2025 9:48 AM EST) Tacrolimus (LC-MS) 4.0 3.0 - 15.0 ng/mL 10/22/2025 12:57 PM EST [facility] Comment:Performed via liquid chromatography tandem mass spectrometry. Detection limit: 1 ng/mL. Individual target concentrations may vary due to target organ and time after transplant. This test has been developed and its performance characteristics determined by [facility] which is certified under the [...] ORDERABLES Final Re sult Performing Organization Address [facility] de Phone Number [facility] [address] [facility]. [address] * Phosphorus (10/22/2025 5:28 AM EST) Phosphorus 2.3 2.1 - 4.7 mg/dL 10/22/2025 6:20 AM EST [facility] Plasma 10/22/2025 5:28 AM EST 10/22/2025 5:42 AM EST Aspen Parr MD LAB BLOOD ORDERABLES Final Resul t [facility] [address] * Magnesium (10/22/2025 5:28 AM EST) Magnesium 1.7 1.5 - 2.5 mg/dL 10/22/2025 6:20 AM EST [facility] Plasma 10/22/2025 5:28 AM EST 10/22/2025 5:42 AM EST Aspen Parr MD LAB BLOOD ORDERABLES Final Resul t [facility] [address] * (ABNORMAL) CBC (10/22/2025 5:28 AM EST) WBC 6.6 3.8 - 10.8 10E3/uL 10/22/2025 5:48 AM EST [facility] RBC 2.84(L) 4.20 - 5.80 10E6/uL 10/22/2025 5:48 AM EST [facility] Hemoglobin 9.3(L) 13.2 - 17.1 g/dL 10/22/2025 5:48 AM EST [facility] Hematocrit 26.4(L) 38.5 - 50.0 % 10/22/2025 5:48 AM EST [facility] MCV 92.8 80.0 - 100.0 fL 10/22/2025 5:48 AM EST [facility] MCH 32.8 27.0 - 33.0 pg 10/22/2025 5:48 AM EST [facility] MCHC 35.4 32.0 - 36.0 g/dL 10/22/2025 5:48 AM EST [facility] RDW 16.0(H) 11.0 - 15.0 % 10/22/2025 5:48 AM EST [facility] Platelets 22(L) 140 - 400 10E3/uL 10/22/2025 5:48 AM EST [facility] Comment: CNV Specimen checked for clots. None detected. MPV 9.1 7.5 - 11.5 fL 10/22/2025 5:48 AM EST [facility] Whole Blood 10/22/2025 5:28 AM EST 10/22/2025 5:42 AM EST us Aspen Parr MD LAB BLOOD ORDERABLES Final Resul t Performing Organization Address City/State/[facility] Co de Phone Number [facility] [address] * (ABNORMAL) Hepatic Function Panel (10/22/2025 5:28 AM EST) Total Bilirubin 1.0 0.0 - 1.5 mg/dL 10/22/2025 6:20 AM EST [facility] Bilirubin, Direct 0.28 0.00 - 0.40 mg/dL 10/22/2025 6:20 AM [facility] AST 42(H) 13 - 39 U/L 10/22/2025 6:20 AM [facility] ALT 270(H) 7 - 52 U/L 10/22/2025 6:20 AM [facility] Alkaline Phosphatase 84 36 - 125 U/L 10/22/2025 6:20 AM EST [facility] Total Protein 4.3(L) 6.4 - 8.9 g/dL 10/22/2025 6:20 AM EST [facility] Albumin 2.1(L) 3.5 - 5.7 g/dL 10/22/2025 6:20 AM EST [facility] Bilirubin, Indirect 0.72 0.00 - 1.10 mg/dL 10/22/2025 6:20 AM EST [facility] Plasma 10/22/2025 5:28 AM EST 10/22/2025 5:42 AM EST us Aspen Parr MD LAB BLOOD ORDERABLES Final Resul t [facility] [address] [place] [address], [facility] * (ABNORMAL) Basic metabolic panel (10/22/2025 5:28 AM EST) Sodium 138 133 - 146 mmol/L 10/22/2025 6:20 AM EST [facility] Potassium 3.2(L) 3.5 - 5.3 mmol/L 10/22/2025 6:20 AM EST [facility] Chloride 107 98 - 110 mmol/L 10/22/2025 6:20 AM EST [facility] CO2 25 21 - 33 mmol/L 10/22/2025 6:20 AM EST [facility] Comment:High lactate dehydro genase concentrations in patient samples may cause falsely increased bicarbonate results. If markedly elevated LDH is observed or suspected, please assess results in conjunction with patient`s clinical presentation. In cases of discrepant results, consider evaluating CO2 in with a blood gas order. Anion Gap 6 3 - 16 mmol/L 10/22/2025 6:20 AM EST [facility] BUN 25 7 - 25 mg/dL 10/22/2025 6:20 AM EST [facility] Creatinine 0.81 0.60 - 1.30 mg/dL 10/22/2025 6:20 AM EST [facility] Glucose 100 70 - 100 mg/dL 10/22/2025 6:20 AM EST [facility] Calcium 6.8(L) 8.6 - 10.3 mg/dL 10/22/2025 6:20 AM EST [facility] Osmolality, Calculated 290 278 - 305 mOsm/kg 10/22/2025 6:20 AM EST [facility] EGFR >90 10/22/2025 6:20 AM EST [facility] Comment: As of 2022, the [...] ORDERABLES Final Resul t Performing Organization Address [facility]/ZIP Co de Phone Number [facility] [address] * (ABNORMAL) POC Glucose Monitoring Device (10/21/2025 4:31 PM EST) POC Glucose Monitoring Device 230(H) 70 - 100 mg/dL 10/21/2025 4:32 PM EST [facility] Blood 10/21/2025 4:31 PM EST 10/21/2025 4:32 PM EST Vani Winkler MD POINT OF CARE TEST ORDERABLE S Final Result Performing Organization Address [facility]/ZIP Co de Phone Number [facility] [address] * (ABNORMAL) POC Glucose Monitoring Device (10/21/2025 12:27 PM EST) POC Glucose Monitoring Device 181(H) 70 - 100 mg/dL 10/21/2025 12:27 PM EST [facility] Blood 10/21/2025 12:2 7 PM EST 10/21/2025 12:27 PM EST Vani Winkler MD POINT OF CARE TEST ORDERABLE S Final Result [facility] [address] [facility]. [address] * Tacrolimus level (10/21/2025 8:30 AM EST) Pathologist [facility] Tacrolimus (LC-MS) 6.9 3.0 - 15.0 ng/mL 10/21/2025 3:07 PM EST [facility] Comment:Performed via liquid chromatography tandem mass spectrometry. Detection limit: 1 ng/mL. Individual target concentrations may vary due to target organ and time after transplant. This test has been developed and its performance characteristics determined by [facility] which is certified under the [...] ORDERABLES Final Re sult Performing Organization Address [facility] Co de Phone Number [facility] [address] [facility]. [address] * (ABNORMAL) POC Glucose Monitoring Device (10/21/2025 8:18 AM EST) POC Glucose Monitoring Device 112(H) 70 - 100 mg/dL 10/21/2025 8:28 AM EST [facility] Blood 10/21/2025 8:18 AM EST 10/21/2025 8:28 AM EST Vani Winkler MD POINT OF CARE TEST ORDERABLE S Final Result [facility] [address] * (ABNORMAL) Hepatic Function Panel (10/21/2025 6:35 AM EST) Total Bilirubin 0.9 0.0 - 1.5 mg/dL 10/21/2025 7:45 AM EST [facility] Bilirubin, Direct 0.41(H) 0.00 - 0.40 mg/dL 10/21/2025 7:45 AM EST [facility] AST 64(H) 13 - 39 U/L 10/21/2025 7:45 AM EST [facility] ALT 389(H) 7 - 52 U/L 10/21/2025 7:45 AM EST [facility] Alkaline Phosphatase 83 36 - 125 U/L 10/21/2025 7:45 AM EST [facility] Total Protein 4.3(L) 6.4 - 8.9 g/dL 10/21/2025 7:45 AM EST [facility] Albumin 2.2(L) 3.5 - 5.7 g/dL 10/21/2025 7:45 AM EST [facility] Bilirubin, Indirect 0.49 0.00 - 1.10 mg/dL 10/21/2025 7:45 AM EST [facility] Plasma 10/21/2025 6:35 AM EST 10/21/2025 6:58 AM EST Aspen Parr MD LAB BLOOD ORDERABLES Final Resul t Performing Organization Address [facility] Co de Phone Number [facility] [address] [facility]. [address] * Magnesium (10/21/2025 6:35 AM EST) Magnesium 2.0 1.5 - 2.5 mg/dL 10/21/2025 7:45 AM EST [facility] Plasma 10/21/2025 6:35 AM EST 10/21/2025 6:58 AM EST Aspen Parr MD LAB BLOOD ORDERABLES Final Resul t Performing Organization Address City/[facility]/ZIP Co de Phone Number [facility] [address] [facility]. [address] * (ABNORMAL) Renal Function Panel w/EGFR (10/21/2025 6:35 AM EST) Sodium 139 133 - 146 mmol/L 10/21/2025 7:45 AM EST [facility] Potassium 3.5 3.5 - 5.3 mmol/L 10/21/2025 7:45 AM EST [facility] Chloride 108 98 - 110 mmol/L 10/21/2025 7:45 AM [facility] CO2 26 21 - 33 mmol/L 10/21/2025 7:45 AM [facility] Comment:High lactate dehydro genase concentrations in patient samples may cause falsely increased bicarbonate results. If markedly elevated LDH is observed or suspected, please assess results in conjunction with patient`s clinical presentation. In cases of discrepant results, consider evaluating CO2 in with a blood gas order. Anion Gap 5 3 - 16 mmol/L 10/21/2025 7:45 AM EST [facility] BUN 39(H) 7 - 25 mg/dL 10/21/2025 7:45 AM [facility] Creatinine 0.96 0.60 - 1.30 mg/dL 10/21/2025 7:45 AM [facility] Glucose 126(H) 70 - 100 mg/dL 10/21/2025 7:45 AM EST [facility] Calcium 6.8(L) 8.6 - 10.3 mg/dL 10/21/2025 7:45 AM [facility] Phosphorus 2.8 2.1 - 4.7 mg/dL 10/21/2025 7:45 AM [facility] Albumin 2.2(L) 3.5 - 5.7 g/dL 10/21/2025 7:45 AM [facility] Osmolality, Calculated 299 278 - 305 mOsm/kg 10/21/2025 7:45 AM EST [facility] EGFR 88 10/21/2025 7:45 AM [facility] Comment:As of 2022, the estimated [...] MD LAB BLOOD ORDERABLES Final Resul t [facility] [address] * (ABNORMAL) CBC (10/21/2025 6:35 AM EST) WBC 8.4 3.8 - 10.8 10E3/uL 10/21/2025 7:55 AM EST [facility] RBC 2.68(L) 4.20 - 5.80 10E6/uL 10/21/2025 7:55 AM EST [facility] Hemoglobin 8.9(L) 13.2 - 17.1 g/dL 10/21/2025 7:55 AM EST [facility] Hematocrit 24.8(L) 38.5 - 50.0 % 10/21/2025 7:55 AM EST [facility] MCV 92.6 80.0 - 100.0 fL 10/21/2025 7:55 AM EST [facility] MCH 33.3(H) 27.0 - 33.0 pg 10/21/2025 7:55 AM EST [facility] MCHC 36.0 32.0 - 36.0 g/dL 10/21/2025 7:55 AM EST [facility] RDW 16.9(H) 11.0 - 15.0 % 10/21/2025 7:55 AM EST [facility] Platelets 20(L) 140 - 400 10E3/uL 10/21/2025 7:55 AM EST [facility] Comment: CNV Specimen checked for clots. None detected. MPV 8.5 7.5 - 11.5 fL 10/21/2025 7:55 AM EST [facility] Whole Blood 10/21/2025 6:35 AM EST 10/21/2025 6:58 AM EST Aspen Parr MD LAB BLOOD ORDERABLES Final Resul t [facility] [address] [facility]. [address] * (ABNORMAL) POC Glucose Monitoring Device (10/20/2025 5:17 PM EST) POC Glucose Monitoring Device 195(H) 70 - 100 mg/dL 10/20/2025 5:18 PM EST [facility] Blood 10/20/2025 5:17 PM EST 10/20/2025 5:18 PM EST Vani Winkler MD POINT OF CARE TEST ORDERABLE S Final Result Performing Organization Address [facility] Co de Phone Number [facility] [address] [facility]. [address] * (ABNORMAL) POC Glucose Monitoring Device (10/20/2025 2:24 PM EST) POC Glucose Monitoring Device 205(H) 70 - 100 mg/dL 10/20/2025 2:24 PM EST [facility] Blood 10/20/2025 2:24 PM EST 10/20/2025 2:24 PM EST Vani Winkler MD POINT OF CARE TEST ORDERABLE S Final Result Performing Organization Address City/[facility]/ZIP Co de Phone Number [facility] [address] [facility]. [address] * Tacrolimus level (10/20/2025 10:31 AM EST) Tacrolimus (LC-MS) 7.9 3.0 - 15.0 ng/mL 10/20/2025 2:25 PM EST [facility] Comment:Performed via liquid chromatography tandem mass spectrometry. Detection limit: 1 ng/mL. Individual target concentrations may vary due to target organ and time after transplant. This test has been developed and its performance characteristics determined by [facility] which is certified under the Clinical Laboratory [...] ORDERABLES Final Re sult Performing Organization Address [facility] Co de Phone Number [facility] [address] [place] [address]. [address] * (ABNORMAL) POC Glucose Monitoring Device (10/20/2025 9:24 AM EST) POC Glucose Monitoring Device 227(H) 70 - 100 mg/dL 10/20/2025 9:25 AM EST [facility] Blood 10/20/2025 9:24 AM EST 10/20/2025 9:25 AM EST Vani Winkler MD POINT OF CARE TEST ORDERABLE S Final Result Performing Organization Address [facility] Co de Phone Number [facility] [address] [place] [address]. [address] * Magnesium (10/20/2025 5:31 AM EST) Magnesium 2.1 1.5 - 2.5 mg/dL 10/20/2025 7:35 AM EST [facility] Plasma 10/20/2025 5:31 AM EST 10/20/2025 5:42 AM EST Aspen Parr MD LAB BLOOD ORDERABLES Final Resul t Performing Organization Address [facility] Co de Phone Number [facility] [address] [place] [address]. [address] * (ABNORMAL) Hepatic Function Panel (10/20/2025 5:31 AM EST) Total Bilirubin 0.9 0.0 - 1.5 mg/dL 10/20/2025 7:35 AM EST [facility] Bilirubin, Direct 0.43(H) 0.00 - 0.40 mg/dL 10/20/2025 7:35 AM EST [facility] AST 161(H) 13 - 39 U/L 10/20/2025 7:35 AM EST [facility] ALT 532(H) 7 - 52 U/L 10/20/2025 7:35 AM EST [facility] Alkaline Phosphatase 67 36 - 125 U/L 10/20/2025 7:35 AM EST [facility] Total Protein 4.2(L) 6.4 - 8.9 g/dL 10/20/2025 7:35 AM EST [facility] Albumin 2.2(L) 3.5 - 5.7 g/dL 10/20/2025 7:35 AM EST [facility] Bilirubin, Indirect 0.47 0.00 - 1.10 mg/dL 10/20/2025 7:35 AM EST [facility] Plasma 10/20/2025 5:31 AM EST 10/20/2025 5:42 AM EST us Aspen Parr MD LAB BLOOD ORDERABLES Final Resul t [facility] [address] * (ABNORMAL) Renal Function Panel w/EGFR (10/20/2025 5:31 AM EST) Sodium 142 133 - 146 mmol/L 10/20/2025 7:23 AM EST [facility] Potassium 3.8 3.5 - 5.3 mmol/L 10/20/2025 7:23 AM EST [facility] Chloride 111(H) 98 - 110 mmol/L 10/20/2025 7:23 AM EST [facility] CO2 25 21 - 33 mmol/L 10/20/2025 7:23 AM EST [facility] Comment:High lactate dehydro genase concentrations in patient samples may cause falsely increased bicarbonate results. If markedly elevated LDH is observed or suspected, please assess results in conjunction with patient`s clinical presentation. In cases of discrepant results, consider evaluating CO2 in with a blood gas order. Anion Gap 6 3 - 16 mmol/L 10/20/2025 7:23 AM EST [facility] BUN 47(H) 7 - 25 mg/dL 10/20/2025 7:23 AM [facility] Creatinine 1.15 0.60 - 1.30 mg/dL 10/20/2025 7:23 AM [facility] Glucose 198(H) 70 - 100 mg/dL 10/20/2025 7:23 AM [facility] Calcium 6.8(L) 8.6 - 10.3 mg/dL 10/20/2025 7:23 AM [facility] Phosphorus 4.8(H) 2.1 - 4.7 mg/dL 10/20/2025 7:35 AM [facility] Albumin 2.2(L) 3.5 - 5.7 g/dL 10/20/2025 7:35 AM [facility] Osmolality, Calculated 312(H) 278 - 305 mOsm/kg 10/20/2025 7:23 AM [facility] EGFR 71 10/20/2025 7:23 AM [facility] Comment:As of 2022, the estimated [...] MD LAB BLOOD ORDERABLES Final Resul t [facility] [address] * (ABNORMAL) CBC (10/20/2025 5:31 AM [...] - 100.0 fL 10/20/2025 6:18 AM EST [facility] MCH 32.2 27.0 - 33.0 pg 10/20/2025 6:18 AM EST [facility] MCHC 34.6 32.0 - 36.0 g/dL 10/20/2025 6:18 AM EST [facility] RDW 17.4(H) 11.0 - 15.0 % 10/20/2025 6:18 AM EST [facility] Platelets 17(LL) 140 - 400 10E3/uL 10/20/2025 6:18 AM EST [facility] Comment: Results verified by repeat analysis. Critical Result PLT:17 Called to and read back by ALEKSANDR SMITH RN at: 10/20/2025 06:18:19 by:DEJON ARREGUINV 8.4 7.5 - 11.5 fL 10/20/2025 6:18 AM EST [facility] Whole Blood 10/20/2025 5:31 AM EST 10/20/2025 5:42 AM EST us Aspen Parr MD LAB BLOOD ORDERABLES Final Resul t [facility] [address] [facility]. [address] * (ABNORMAL) POC Glucose Monitoring Device (10/20/2025 5:30 AM EST) POC Glucose Monitoring Device 208(H) 70 - 100 mg/dL 10/20/2025 5:31 AM EST [facility] Blood 10/20/2025 5:30 AM EST 10/20/2025 5:31 AM EST Vani Winkler MD POINT OF CARE TEST ORDERABLE S Final Result Performing Organization Address City/[facility]/ZIP Co de Phone Number [facility] [address] [facility]. [address] * (ABNORMAL) Protime-INR (10/19/2025 11:03 PM EST) Protime 18.2(H) 12.1 - 15.1 seconds 10/19/2025 11:27 PM EST [facility] INR 1.4(H) 0.9 - 1.1 10/19/2025 11:27 PM EST [facility] Comment: RECOMMENDED THERAPEUTIC RANGES USING INR : Stable oral anticoagulant therapy: 2.0 - 3.0 Mechanical prosthetic heart valve: 2.5 - 3.5 Recurrent acute myocardial infarction: 2.5 - 3.5 Plasma 10/19/2025 11:0 3 PM EST 10/19/2025 11:07 PM EST us Aspen Parr MD LAB BLOOD ORDERABLES Final Resul t [facility] [address] [facility]. [address] * Magnesium (10/19/2025 11:03 PM EST) Magnesium 2.1 1.5 - 2.5 mg/dL 10/19/2025 11:45 PM EST [facility] Plasma 10/19/2025 11:0 3 PM EST 10/19/2025 11:07 PM EST Aspen Parr MD LAB BLOOD ORDERABLES Final Resul t Performing Organization Address [facility] Co de Phone Number [facility] [address] * (ABNORMAL) Hepatic Function Panel (10/19/2025 11:03 PM EST) Total Bilirubin 1.0 0.0 - 1.5 mg/dL 10/19/2025 11:45 PM EST [facility] Bilirubin, Direct 0.48(H) 0.00 - 0.40 mg/dL 10/19/2025 11:45 PM EST [facility] AST 223(H) 13 - 39 U/L 10/19/2025 11:45 PM EST [facility] ALT 569(H) 7 - 52 U/L 10/19/2025 11:45 PM EST [facility] Alkaline Phosphatase 68 36 - 125 U/L 10/19/2025 11:45 PM EST [facility] Total Protein 4.4(L) 6.4 - 8.9 g/dL 10/19/2025 11:45 PM EST [facility] Albumin 2.2(L) 3.5 - 5.7 g/dL 10/19/2025 11:45 PM EST [facility] Bilirubin, Indirect 0.52 0.00 - 1.10 mg/dL 10/19/2025 11:45 PM EST [facility] Plasma 10/19/2025 11:0 3 PM EST 10/19/2025 11:07 PM EST Aspen Parr MD LAB BLOOD ORDERABLES Final Resul t [facility] [address] [facility]. [address] * (ABNORMAL) Renal Function Panel w/EGFR (10/19/2025 11:03 PM EST) Sodium 144 133 - 146 mmol/L 10/19/2025 11:33 PM EST [facility] Potassium 3.6 3.5 - 5.3 mmol/L 10/19/2025 11:33 PM EST [facility] Chloride 110 98 - 110 mmol/L 10/19/2025 11:33 PM EST [facility] CO2 25 21 - 33 mmol/L 10/19/2025 11:33 PM [facility] Comment:High lactate dehydro genase concentrations in patient samples may cause falsely increased bicarbonate results. If markedly elevated LDH is observed or suspected, please assess results in conjunction with patient`s clinical presentation. In cases of discrepant results, consider evaluating CO2 in with a blood gas order. Anion Gap 9 3 - 16 mmol/L 10/19/2025 11:33 PM [facility] BUN 46(H) 7 - 25 mg/dL 10/19/2025 11:33 PM [facility] Creatinine 1.24 0.60 - 1.30 mg/dL 10/19/2025 11:33 PM [facility] Glucose 184(H) 70 - 100 mg/dL 10/19/2025 11:33 PM [facility] Calcium 7.1(L) 8.6 - 10.3 mg/dL 10/19/2025 11:33 PM [facility] Phosphorus 4.9(H) 2.1 - 4.7 mg/dL 10/19/2025 11:45 PM [facility] Albumin 2.2(L) 3.5 - 5.7 g/dL 10/19/2025 11:45 PM [facility] Osmolality, Calculated 315(H) 278 - 305 mOsm/kg 10/19/2025 11:33 PM [facility] EGFR 65 10/19/2025 11:33 PM [facility] Comment:As of 2022, the estimated [...] MD LAB BLOOD ORDERABLES Final Resul t [facility] [address] [place] [address], [facility] * (ABNORMAL) CBC (10/19/2025 11:03 PM EST) WBC 7.0 3.8 - 10.8 10E3/uL 10/19/2025 11:20 PM EST [facility] RBC 2.77(L) 4.20 - 5.80 10E6/uL 10/19/2025 11:20 PM EST [facility] Hemoglobin 8.9(L) 13.2 - 17.1 g/dL 10/19/2025 11:20 PM EST [facility] Hematocrit 25.8(L) 38.5 - 50.0 % 10/19/2025 11:20 PM EST [facility] MCV 93.2 80.0 - 100.0 fL 10/19/2025 11:20 PM EST [facility] MCH 32.2 27.0 - 33.0 pg 10/19/2025 11:20 PM EST [facility] MCHC 34.5 32.0 - 36.0 g/dL 10/19/2025 11:20 PM EST [facility] RDW 18.1(H) 11.0 - 15.0 % 10/19/2025 11:20 PM EST [facility] Platelets 20(L) 140 - 400 10E3/uL 10/19/2025 11:20 PM EST [facility] Comment:CNV MPV 8.0 7.5 - 11.5 fL 10/19/2025 11:20 PM EST [facility] Whole Blood 10/19/2025 11:0 3 PM EST 10/19/2025 11:07 PM EST us Aspen Parr MD LAB BLOOD ORDERABLES Final Resul t [facility] [address] [facility] * (ABNORMAL) POC Glucose Monitoring Device (10/19/2025 11:02 PM EST) POC Glucose Monitoring Device 185(H) 70 - 100 mg/dL 10/19/2025 11:03 PM EST [facility] Blood 10/19/2025 11:0 2 PM EST 10/19/2025 11:03 PM EST Vani Winkler MD POINT OF CARE TEST ORDERABLE S Final Result [facility] [address] [facility]. [address] * (ABNORMAL) POC Glucose Monitoring Device (10/19/2025 5:24 PM EST) POC Glucose Monitoring Device 166(H) 70 - 100 mg/dL 10/19/2025 5:35 PM EST [facility] Blood 10/19/2025 5:24 PM EST 10/19/2025 5:35 PM EST Vani Winkler MD POINT OF CARE TEST ORDERABLE S Final Result [facility] [address] [facility]. [address] * (ABNORMAL) POC Glucose Monitoring Device (10/19/2025 12:26 PM EST) POC Glucose Monitoring Device 156(H) 70 - 100 mg/dL 10/19/2025 12:27 PM EST [facility] Blood 10/19/2025 12:2 6 PM EST 10/19/2025 12:27 PM EST Vani Winkler MD POINT OF CARE TEST ORDERABLE S Final Result [facility] [address] [facility]. [address] * (ABNORMAL) POC Glucose Monitoring Device (10/19/2025 9:51 AM EST) Pathologist [facility] POC Glucose Monitoring Device 110(H) 70 - 100 mg/dL 10/19/2025 9:52 AM EST [facility] Blood 10/19/2025 9:51 AM EST 10/19/2025 9:52 AM EST Vani Winkler MD POINT OF CARE TEST ORDERABLE S Final Result Performing Organization Address [facility] Co de Phone Number [facility] [address] [facility]. [address] * (ABNORMAL) Tacrolimus level (10/19/2025 8:29 AM EST) [facility] Tacrolimus (LC-MS) 2.1(L) 3.0 - 15.0 ng/mL 10/19/2025 3:06 PM EST [facility] Comment:Performed via liquid chromatography tandem mass spectrometry. Detection limit: 1 ng/mL. Individual target concentrations may vary due to target organ and time after transplant. This test has been developed and its performance characteristics determined by [facility] which is certified under the [...] ORDERABLES Final Re sult Performing Organization Address City/[facility]/ZIP Co de Phone Number [facility] [address] [facility]. [address] * (ABNORMAL) Protime-INR (10/19/2025 8:29 AM EST) Protime 19.1(H) 12.1 - 15.1 seconds 10/19/2025 9:09 AM EST [facility] INR 1.5(H) 0.9 - 1.1 10/19/2025 9:09 AM EST [facility] Comment: RECOMMENDED THERAPEUTIC RANGES USING INR : Stable oral anticoagulant therapy: 2.0 - 3.0 Mechanical prosthetic heart valve: 2.5 - 3.5 Recurrent acute myocardial infarction: 2.5 - 3.5 Plasma 10/19/2025 8:29 AM EST 10/19/2025 8:33 AM EST Aspen Parr MD LAB BLOOD ORDERABLES Final Resul t Performing Organization Address City/[facility] Co de Phone Number [facility] [address] [facility]. [address] * Magnesium (10/19/2025 8:29 AM EST) Magnesium 2.0 1.5 - 2.5 mg/dL 10/19/2025 9:28 AM EST [facility] Plasma 10/19/2025 8:29 AM EST 10/19/2025 8:33 AM EST Aspen Parr MD LAB BLOOD ORDERABLES Final Resul t Performing Organization Address [facility] de Phone Number [facility] [address] * (ABNORMAL) Hepatic Function Panel (10/19/2025 8:29 AM EST) Total Bilirubin 1.0 0.0 - 1.5 mg/dL 10/19/2025 9:28 AM EST [facility] Bilirubin, Direct 0.44(H) 0.00 - 0.40 mg/dL 10/19/2025 9:28 AM EST [facility] AST 450(H) 13 - 39 U/L 10/19/2025 9:28 AM EST [facility] ALT 725(H) 7 - 52 U/L 10/19/2025 9:28 AM EST [facility] Alkaline Phosphatase 65 36 - 125 U/L 10/19/2025 9:28 AM EST [facility] Total Protein 4.4(L) 6.4 - 8.9 g/dL 10/19/2025 9:28 AM EST [facility] Albumin 2.2(L) 3.5 - 5.7 g/dL 10/19/2025 9:28 AM [facility] Bilirubin, Indirect 0.56 0.00 - 1.10 mg/dL 10/19/2025 9:28 AM [facility] Plasma 10/19/2025 8:29 AM EST 10/19/2025 8:33 AM EST us Aspen Parr MD LAB BLOOD ORDERABLES Final Resul t [facility] [address] [place] [address], [facility] * (ABNORMAL) Renal Function Panel w/EGFR (10/19/2025 8:29 AM EST) Sodium 145 133 - 146 mmol/L 10/19/2025 9:09 AM [facility] Potassium 3.6 3.5 - 5.3 mmol/L 10/19/2025 9:09 AM [facility] Chloride 113(H) 98 - 110 mmol/L 10/19/2025 9:09 AM [facility] CO2 25 21 - 33 mmol/L 10/19/2025 9:09 AM [facility] Comment:High lactate dehydro genase concentrations in patient samples may cause falsely increased bicarbonate results. If markedly elevated LDH is observed or suspected, please assess results in conjunction with patient`s clinical presentation. In cases of discrepant results, consider evaluating CO2 in with a blood gas order. Anion Gap 7 3 - 16 mmol/L 10/19/2025 9:09 AM [facility] BUN 38(H) 7 - 25 mg/dL 10/19/2025 9:09 AM [facility] Creatinine 1.16 0.60 - 1.30 mg/dL 10/19/2025 9:09 AM [facility] Glucose 129(H) 70 - 100 mg/dL 10/19/2025 9:09 AM [facility] Calcium 7.2(L) 8.6 - 10.3 mg/dL 10/19/2025 9:09 AM [facility] Phosphorus 4.0 2.1 - 4.7 mg/dL 10/19/2025 9:28 AM EST [facility] Albumin 2.2(L) 3.5 - 5.7 g/dL 10/19/2025 9:28 AM EST [facility] Osmolality, Calculated 311(H) 278 - 305 mOsm/kg 10/19/2025 9:09 AM EST [facility] EGFR 70 10/19/2025 9:09 AM EST [facility] Comment:As of 2022, the estimated [...] MD LAB BLOOD ORDERABLES Final Resul t [facility] [address] * (ABNORMAL) CBC (10/19/2025 8:29 AM EST) WBC 9.8 3.8 - 10.8 10E3/uL 10/19/2025 9:06 AM EST [facility] RBC 2.90(L) 4.20 - 5.80 10E6/uL 10/19/2025 9:06 AM EST [facility] Hemoglobin 9.6(L) 13.2 - 17.1 g/dL 10/19/2025 9:06 AM EST [facility] Hematocrit 26.8(L) 38.5 - 50.0 % 10/19/2025 9:06 AM EST [facility] MCV 92.4 80.0 - 100.0 fL 10/19/2025 9:06 AM EST [facility] MCH 33.2(H) 27.0 - 33.0 pg 10/19/2025 9:06 AM EST [facility] MCHC 36.0 32.0 - 36.0 g/dL 10/19/2025 9:06 AM EST [facility] RDW 18.5(H) 11.0 - 15.0 % 10/19/2025 9:06 AM [facility] Platelets 22(L) 140 - 400 10E3/uL 10/19/2025 9:06 AM EST [facility] Comment: CNV Specimen checked for clots. None detected. MPV 8.5 7.5 - 11.5 fL 10/19/2025 9:06 AM EST [facility] Whole Blood 10/19/2025 8:29 AM EST 10/19/2025 8:33 AM EST us Aspen Parr MD LAB BLOOD ORDERABLES Final Resul t [facility] [address] * (ABNORMAL) POC Glucose Monitoring Device (10/19/2025 8:28 AM EST) POC Glucose Monitoring Device 122(H) 70 - 100 mg/dL 10/19/2025 8:39 AM EST [facility] Blood 10/19/2025 8:28 AM EST 10/19/2025 8:38 AM EST Vani Winkler MD POINT OF CARE TEST ORDERABLE S Final Result [facility] [address] * (ABNORMAL) POC Glucose Monitoring Device (10/19/2025 7:07 AM EST) POC Glucose Monitoring Device 136(H) 70 - 100 mg/dL 10/19/2025 7:08 AM EST [facility] Blood 10/19/2025 7:07 AM EST 10/19/2025 7:08 AM EST Vani Winkler MD POINT OF CARE TEST ORDERABLE S Final Result Performing Organization Address City/[facility]/ZIP Co de Phone Number [facility] [address] [facility]. [address] * (ABNORMAL) POC Glucose Monitoring Device (10/19/2025 6:28 AM EST) POC Glucose Monitoring Device 109(H) 70 - 100 mg/dL 10/19/2025 6:29 AM EST [facility] Blood 10/19/2025 6:28 AM EST 10/19/2025 6:29 AM EST Vani Winkler MD POINT OF CARE TEST ORDERABLE S Final Result Performing Organization Address [facility] Co de Phone Number [facility] [address] [facility]. [address] * (ABNORMAL) POC Glucose Monitoring Device (10/19/2025 6:10 AM EST) POC Glucose Monitoring Device 108(H) 70 - 100 mg/dL 10/19/2025 6:12 AM EST [facility] Blood 10/19/2025 6:10 AM EST 10/19/2025 6:11 AM EST Vani Winkler MD POINT OF CARE TEST ORDERABLE S Final Result Performing Organization Address City/[facility] Co de Phone Number [facility] [address] [facility]. [address] * (ABNORMAL) POC Glucose Monitoring Device (10/19/2025 4:06 AM EST) POC Glucose Monitoring Device 115(H) 70 - 100 mg/dL 10/19/2025 4:07 AM EST [facility] Blood 10/19/2025 4:06 AM EST 10/19/2025 4:07 AM EST Vani Winkler MD POINT OF CARE TEST ORDERABLE S Final Result Performing Organization Address [facility] de Phone Number [facility] [address] [place] [address]. [address] * (ABNORMAL) POC Glucose Monitoring Device (10/19/2025 2:04 AM EST) POC Glucose Monitoring Device 129(H) 70 - 100 mg/dL 10/19/2025 2:06 AM EST [facility] Blood 10/19/2025 2:04 AM EST 10/19/2025 2:05 AM EST us Vani Winkler MD POINT OF CARE TEST ORDERABLE S Final Result Performing Organization Address [facility] de Phone Number [facility] [address] [place] [address]. [address] * (ABNORMAL) POC Glucose Monitoring Device (10/18/2025 11:57 PM EST) POC Glucose Monitoring Device 131(H) 70 - 100 mg/dL 10/18/2025 11:58 PM EST [facility] Blood 10/18/2025 11:5 7 PM EST 10/18/2025 11:58 PM EST us Vani Winkler MD POINT OF CARE TEST ORDERABLE S Final Result Performing Organization Address [facility] de Phone Number [address] * Lactic Acid (10/18/2025 10:20 PM EST) Lactate 0.8 0.5 - 2.2 mmol/L 10/18/2025 11:03 PM EST [facility] Plasma 10/18/2025 10:2 0 PM EST 10/18/2025 10:26 PM EST us Aspen Parr MD LAB BLOOD ORDERABLES Final Resul t [facility] [address] [facility]. [address] * Magnesium (10/18/2025 10:20 PM EST) Magnesium 1.8 1.5 - 2.5 mg/dL 10/18/2025 11:18 PM EST [facility] Plasma 10/18/2025 10:2 0 PM EST 10/18/2025 10:26 PM EST Aspen Parr MD LAB BLOOD ORDERABLES Final Resul t Performing Organization Address City/[facility] Co de Phone Number [facility] [address] [facility]. [address] * (ABNORMAL) Hepatic Function Panel (10/18/2025 10:20 PM EST) Total Bilirubin 1.0 0.0 - 1.5 mg/dL 10/18/2025 11:18 PM EST [facility] Bilirubin, Direct 0.51(H) 0.00 - 0.40 mg/dL 10/18/2025 11:18 PM EST [facility] AST 717(H) 13 - 39 U/L 10/18/2025 11:18 PM EST [facility] ALT 792(H) 7 - 52 U/L 10/18/2025 11:18 PM EST [facility] Alkaline Phosphatase 62 36 - 125 U/L 10/18/2025 11:18 PM EST [facility] Total Protein 4.3(L) 6.4 - 8.9 g/dL 10/18/2025 11:18 PM EST [facility] Albumin 2.1(L) 3.5 - 5.7 g/dL 10/18/2025 11:18 PM EST [facility] Bilirubin, Indirect 0.49 0.00 - 1.10 mg/dL 10/18/2025 11:18 PM EST [facility] Plasma 10/18/2025 10:2 0 PM EST 10/18/2025 10:26 PM EST Aspen Parr MD LAB BLOOD ORDERABLES Final Resul t [facility] [address] [place] [address], [facility] * (ABNORMAL) Renal Function Panel w/EGFR (10/18/2025 10:20 PM EST) Sodium 146 133 - 146 mmol/L 10/18/2025 11:05 PM EST [facility] Potassium 3.1(L) 3.5 - 5.3 mmol/L 10/18/2025 11:05 PM [facility] Chloride 113(H) 98 - 110 mmol/L 10/18/2025 11:05 PM [facility] CO2 24 21 - 33 mmol/L 10/18/2025 11:05 PM [facility] Comment:High lactate dehydro genase concentrations in patient samples may cause falsely increased bicarbonate results. If markedly elevated LDH is observed or suspected, please assess results in conjunction with patient`s clinical presentation. In cases of discrepant results, consider evaluating CO2 in with a blood gas order. Anion Gap 9 3 - 16 mmol/L 10/18/2025 11:05 PM [facility] BUN 32(H) 7 - 25 mg/dL 10/18/2025 11:05 PM [facility] Creatinine 1.09 0.60 - 1.30 mg/dL 10/18/2025 11:05 PM [facility] Glucose 129(H) 70 - 100 mg/dL 10/18/2025 11:05 PM [facility] Calcium 7.4(L) 8.6 - 10.3 mg/dL 10/18/2025 11:05 PM [facility] Phosphorus 4.0 2.1 - 4.7 mg/dL 10/18/2025 11:18 PM [facility] Albumin 2.1(L) 3.5 - 5.7 g/dL 10/18/2025 11:18 PM [facility] Osmolality, Calculated 311(H) 278 - 305 mOsm/kg 10/18/2025 11:05 PM [facility] EGFR 76 10/18/2025 11:05 PM [facility] Comment:As of 2022, the estimated [...] ORDERABLES Final Resul t Performing Organization Address [facility] Co de Phone Number [facility] [address] [facility]. [address] * (ABNORMAL) Protime-INR (10/18/2025 10:20 PM EST) Protime 21.9(H) 12.1 - 15.1 seconds 10/18/2025 10:52 PM EST [facility] INR 1.8(H) 0.9 - 1.1 10/18/2025 10:52 PM EST [facility] Comment: RECOMMENDED THERAPEUTIC RANGES USING INR : Stable oral anticoagulant therapy: 2.0 - 3.0 Mechanical prosthetic heart valve: 2.5 - 3.5 Recurrent acute myocardial infarction: 2.5 - 3.5 Plasma 10/18/2025 10:2 0 PM EST 10/18/2025 10:26 PM EST Aspen Parr MD LAB BLOOD ORDERABLES Final Resul t Performing Organization Address City/[facility]/ZIP Co de Phone Number [facility] [address] * (ABNORMAL) CBC (10/18/2025 10:20 PM EST) WBC 11.4(H) 3.8 - 10.8 10E3/uL 10/18/2025 10:59 PM EST [facility] RBC 2.92(L) 4.20 - 5.80 10E6/uL 10/18/2025 10:59 PM EST [facility] Hemoglobin 9.5(L) 13.2 - 17.1 g/dL 10/18/2025 10:59 PM EST [facility] Hematocrit 26.9(L) 38.5 - 50.0 % 10/18/2025 10:59 PM EST [facility] MCV 92.2 80.0 - 100.0 fL 10/18/2025 10:59 PM EST [facility] MCH 32.7 27.0 - 33.0 pg 10/18/2025 10:59 PM EST [facility] MCHC 35.4 32.0 - 36.0 g/dL 10/18/2025 10:59 PM EST [facility] RDW 18.3(H) 11.0 - 15.0 % 10/18/2025 10:59 PM EST [facility] Platelets 22(L) 140 - 400 10E3/uL 10/18/2025 10:59 PM EST [facility] Comment: CNV Specimen checked for clots. None detected. MPV 7.8 7.5 - 11.5 fL 10/18/2025 10:59 PM EST [facility] Whole Blood 10/18/2025 10:2 0 PM EST 10/18/2025 10:26 PM EST Aspen Parr MD LAB BLOOD ORDERABLES Final Resul t [facility] [address] * (ABNORMAL) POC Glucose Monitoring Device (10/18/2025 10:07 PM EST) Pathologist [facility] POC Glucose Monitoring Device 134(H) 70 - 100 mg/dL 10/18/2025 10:08 PM EST [facility] Blood 10/18/2025 10:0 7 PM EST 10/18/2025 10:08 PM EST us Vani Winkler MD POINT OF CARE TEST ORDERABLE S Final Result [facility] [address] [facility]. [address] * (ABNORMAL) POC Glucose Monitoring Device (10/18/2025 8:14 PM EST) POC Glucose Monitoring Device 138(H) 70 - 100 mg/dL 10/18/2025 8:15 PM EST [facility] Blood 10/18/2025 8:14 PM EST 10/18/2025 8:15 PM EST us Vani Winkler MD POINT OF CARE TEST ORDERABLE S Final Result Performing Organization Address [facility] Co de Phone Number [facility] [address] [place] [facility]. [address] * Lactic Acid (10/18/2025 5:47 PM EST) Lactate 0.7 0.5 - 2.2 mmol/L 10/18/2025 8:43 PM EST [facility] Plasma 10/18/2025 5:47 PM EST 10/18/2025 7:56 PM EST us Aspen Parr MD LAB BLOOD ORDERABLES Final Resul t Performing Organization Address City/[facility]/ZIP Co de Phone Number [facility] [address] [facility]. [address] * Magnesium (10/18/2025 5:47 PM EST) Magnesium 1.9 1.5 - 2.5 mg/dL 10/18/2025 6:40 PM EST [facility] Plasma 10/18/2025 5:47 PM EST 10/18/2025 5:54 PM EST Aspen Parr MD LAB BLOOD ORDERABLES Final Resul t [facility] [address] * (ABNORMAL) Hepatic Function Panel (10/18/2025 5:47 PM EST) Total Bilirubin 1.1 0.0 - 1.5 mg/dL 10/18/2025 6:40 PM EST [facility] Bilirubin, Direct 0.56(H) 0.00 - 0.40 mg/dL 10/18/2025 6:40 PM EST [facility] AST 965(H) 13 - 39 U/L 10/18/2025 6:40 PM EST [facility] ALT 871(H) 7 - 52 U/L 10/18/2025 6:40 PM EST [facility] Alkaline Phosphatase 61 36 - 125 U/L 10/18/2025 6:40 PM EST [facility] Total Protein 4.3(L) 6.4 - 8.9 g/dL 10/18/2025 6:40 PM EST [facility] Albumin 2.2(L) 3.5 - 5.7 g/dL 10/18/2025 6:40 PM EST [facility] Bilirubin, Indirect 0.54 0.00 - 1.10 mg/dL 10/18/2025 6:40 PM EST [facility] Plasma 10/18/2025 5:47 PM EST 10/18/2025 5:54 PM EST us Aspen Parr MD LAB BLOOD ORDERABLES Final Resul t [facility] [address] [facility]. [address] * (ABNORMAL) Renal Function Panel w/EGFR (10/18/2025 5:47 PM EST) Sodium 144 133 - 146 mmol/L 10/18/2025 6:27 PM EST [facility] Potassium 3.4(L) 3.5 - 5.3 mmol/L 10/18/2025 6:27 PM EST [facility] Chloride 112(H) 98 - 110 mmol/L 10/18/2025 6:27 PM EST [facility] CO2 24 21 - 33 mmol/L 10/18/2025 6:27 PM EST [facility] Comment:High lactate dehydro genase concentrations in patient samples may cause falsely increased bicarbonate results. If markedly elevated LDH is observed or suspected, please assess results in conjunction with patient`s clinical presentation. In cases of discrepant results, consider evaluating CO2 in with a blood gas order. Anion Gap 8 3 - 16 mmol/L 10/18/2025 6:27 PM EST [facility] BUN 29(H) 7 - 25 mg/dL 10/18/2025 6:27 PM [facility] Creatinine 1.09 0.60 - 1.30 mg/dL 10/18/2025 6:27 PM [facility] Glucose 136(H) 70 - 100 mg/dL 10/18/2025 6:27 PM EST [facility] Calcium 7.5(L) 8.6 - 10.3 mg/dL 10/18/2025 6:27 PM [facility] Phosphorus 3.8 2.1 - 4.7 mg/dL 10/18/2025 6:40 PM [facility] Albumin 2.2(L) 3.5 - 5.7 g/dL 10/18/2025 6:40 PM [facility] Osmolality, Calculated 306(H) 278 - 305 mOsm/kg 10/18/2025 6:27 PM [facility] EGFR 76 10/18/2025 6:27 PM [facility] Comment:As of 2022, the estimated [...] ORDERABLES Final Resul t Performing Organization Address City/[facility]/ZIP Co de Phone Number [facility] [address] [facility]. [address] * (ABNORMAL) Protime-INR (10/18/2025 5:47 PM EST) Protime 21.8(H) 12.1 - 15.1 seconds 10/18/2025 6:13 PM EST [facility] INR 1.8(H) 0.9 - 1.1 10/18/2025 6:13 PM EST [facility] Comment: RECOMMENDED THERAPEUTIC RANGES USING INR : Stable oral anticoagulant therapy: 2.0 - 3.0 Mechanical prosthetic heart valve: 2.5 - 3.5 Recurrent acute myocardial infarction: 2.5 - 3.5 Plasma 10/18/2025 5:47 PM EST 10/18/2025 5:54 PM EST Aspen Parr MD LAB BLOOD ORDERABLES Final Resul t Performing Organization Address [facility] Co de Phone Number [facility] [address] [facility]. [address] * (ABNORMAL) CBC (10/18/2025 5:47 PM EST) WBC 11.8(H) 3.8 - 10.8 10E3/uL 10/18/2025 6:06 PM EST [facility] RBC 3.06(L) 4.20 - 5.80 10E6/uL 10/18/2025 6:06 PM EST [facility] Hemoglobin 10.0(L) 13.2 - 17.1 g/dL 10/18/2025 6:06 PM EST [facility] Hematocrit 28.3(L) 38.5 - 50.0 % 10/18/2025 6:06 PM EST [facility] MCV 92.5 80.0 - 100.0 fL 10/18/2025 6:06 PM EST [facility] MCH 32.5 27.0 - 33.0 pg 10/18/2025 6:06 PM EST [facility] MCHC 35.2 32.0 - 36.0 g/dL 10/18/2025 6:06 PM EST [facility] RDW 18.6(H) 11.0 - 15.0 % 10/18/2025 6:06 PM EST [facility] Platelets 22(L) 140 - 400 10E3/uL 10/18/2025 6:06 PM EST [facility] Comment: CNV Specimen checked for clots. None detected. MPV 7.7 7.5 - 11.5 fL 10/18/2025 6:06 PM EST [facility] Whole Blood 10/18/2025 5:47 PM EST 10/18/2025 5:54 PM EST Aspen Parr MD LAB BLOOD ORDERABLES Final Resul t Performing Organization Address City/[facility]/ZIP Co de Phone Number [facility] [address] [facility]. [address] * (ABNORMAL) POC Glucose Monitoring Device (10/18/2025 5:45 PM EST) POC Glucose Monitoring Device 135(H) 70 - 100 mg/dL 10/18/2025 5:46 PM EST [facility] Blood 10/18/2025 5:45 PM EST 10/18/2025 5:46 PM EST Vani Winkler MD POINT OF CARE TEST ORDERABLE S Final Result Performing Organization Address City/[facility]/ZIP Co de Phone Number [facility] [address] [facility]. [address] * (ABNORMAL) POC Glucose Monitoring Device (10/18/2025 3:06 PM EST) POC Glucose Monitoring Device 128(H) 70 - 100 mg/dL 10/18/2025 3:07 PM EST [facility] Blood 10/18/2025 3:06 PM EST 10/18/2025 3:07 PM EST Vani Winkler MD POINT OF CARE TEST ORDERABLE S Final Result [facility] [address] [facility]. [address] * (ABNORMAL) POC Glucose Monitoring Device (10/18/2025 1:15 PM EST) POC Glucose Monitoring Device 128(H) 70 - 100 mg/dL 10/18/2025 1:15 PM EST [facility] Blood 10/18/2025 1:15 PM EST 10/18/2025 1:15 PM EST Vani Winkler MD POINT OF CARE TEST ORDERABLE S Final Result Performing Organization Address City/[facility]/ZIP Co de Phone Number [facility] [address] [facility]. [address] * (ABNORMAL) POC Glucose Monitoring Device (10/18/2025 12:12 PM EST) POC Glucose Monitoring Device 124(H) 70 - 100 mg/dL 10/18/2025 12:13 PM EST [facility] Blood 10/18/2025 12:1 2 PM EST 10/18/2025 12:13 PM EST Vani Winkler MD POINT OF CARE TEST ORDERABLE S Final Result Performing Organization Address City/[facility]/ZIP Co de Phone Number [facility] [address] [facility]. [address] * Prepare Fresh Frozen Plasma (10/18/2025 11:58 AM EST) Product Code [id number] [facility] Unit Number [id number] [facility] Dispense Status Released from [employer] [facility] Blood Expiration Date HCLL Coding System [id number] [facility] Product Code O7905V75 [facility] Unit Number [id number] [facility]LL Dispense Status Released from [employer] [facility] Blood Expiration Date HCLL Coding System [id number] HCLL Product Code H5230Z63 [facility] Unit Number [id number] [facility]LL Dispense Status Released from [employer] [facility]LL Blood Expiration Date HCLL Coding System [id number] HCLL Product Code O3786V87 [facility] Unit Number [id number] [facility]LL Dispense Status Released from [employer] [facility]LL Blood Expiration Date HCLL Coding System [id number] HCLL Product Code [id number] [facility] Unit Number [id number] [facility]LL Dispense Status Released from [employer] [facility]LL Blood Expiration Date HCLL Coding System [id number] HCLL us Attending Provider Unknown BLOOD BANK PRODUCT OR DERABLES Final Result Performing Organization Address City/[facility]/ZIP Co de Phone Number [facility] * Lactic Acid (10/18/2025 11:21 AM EST) Lactate 0.7 0.5 - 2.2 mmol/L 10/18/2025 12:05 PM EST [facility] Plasma 10/18/2025 11:2 1 AM EST 10/18/2025 11:25 AM EST Aspen Parr MD LAB BLOOD ORDERABLES Final Resul t Performing Organization Address [facility] de Phone Number [facility] [address] [facility]. [address] * Magnesium (10/18/2025 11:21 AM EST) Magnesium 2.0 1.5 - 2.5 mg/dL 10/18/2025 12:23 PM EST [facility] Plasma 10/18/2025 11:2 1 AM EST 10/18/2025 11:25 AM EST Aspen Parr MD LAB BLOOD ORDERABLES Final Resul t Performing Organization Address [facility] Co de Phone Number [facility] [address] [facility]. [address] * (ABNORMAL) Hepatic Function Panel (10/18/2025 11:21 AM EST) Total Bilirubin 1.3 0.0 - 1.5 mg/dL 10/18/2025 12:23 PM EST [facility] Bilirubin, Direct 0.74(H) 0.00 - 0.40 mg/dL 10/18/2025 12:23 PM EST [facility] AST 1,689(H) 13 - 39 U/L 10/18/2025 12:23 PM EST [facility] ALT 1034(H) 7 - 52 U/L 10/18/2025 12:23 PM EST [facility] Alkaline Phosphatase 60 36 - 125 U/L 10/18/2025 12:23 PM EST [facility] Total Protein 4.3(L) 6.4 - 8.9 g/dL 10/18/2025 12:23 PM EST [facility] Albumin 2.3(L) 3.5 - 5.7 g/dL 10/18/2025 12:23 PM EST [facility] Bilirubin, Indirect 0.56 0.00 - 1.10 mg/dL 10/18/2025 12:23 PM EST [facility] Plasma 10/18/2025 11:2 1 AM EST 10/18/2025 11:25 AM EST us Aspen Parr MD LAB BLOOD ORDERABLES Final Resul t [facility] [address] * (ABNORMAL) Renal Function Panel w/EGFR (10/18/2025 11:21 AM EST) Sodium 146 133 - 146 mmol/L 10/18/2025 12:06 PM EST [facility] Potassium 3.9 3.5 - 5.3 mmol/L 10/18/2025 12:06 PM EST [facility] Chloride 114(H) 98 - 110 mmol/L 10/18/2025 12:06 PM EST [facility] CO2 25 21 - 33 mmol/L 10/18/2025 12:06 PM EST [facility] Comment:High lactate dehydro genase concentrations in patient samples may cause falsely increased bicarbonate results. If markedly elevated LDH is observed or suspected, please assess results in conjunction with patient`s clinical presentation. In cases of discrepant results, consider evaluating CO2 in with a blood gas order. Anion Gap 7 3 - 16 mmol/L 10/18/2025 12:06 PM EST [facility] BUN 26(H) 7 - 25 mg/dL 10/18/2025 12:06 PM [facility] Creatinine 1.01 0.60 - 1.30 mg/dL 10/18/2025 12:06 PM [facility] Glucose 113(H) 70 - 100 mg/dL 10/18/2025 12:06 PM [facility] Calcium 7.8(L) 8.6 - 10.3 mg/dL 10/18/2025 12:06 PM [facility] Phosphorus 3.1 2.1 - 4.7 mg/dL 10/18/2025 12:23 PM [facility] Albumin 2.3(L) 3.5 - 5.7 g/dL 10/18/2025 12:23 PM [facility] Osmolality, Calculated 308(H) 278 - 305 mOsm/kg 10/18/2025 12:06 PM [facility] EGFR 83 10/18/2025 12:06 PM [facility] Comment:As of 2022, the estimated [...] ORDERABLES Final Resul t Performing Organization Address [facility] de Phone Number [facility] [address] * (ABNORMAL) Protime-INR (10/18/2025 11:21 AM EST) Protime 23.6(H) 12.1 - 15.1 seconds 10/18/2025 11:44 AM EST [facility] INR 2.0(H) 0.9 - 1.1 10/18/2025 11:44 AM EST [facility] Comment: RECOMMENDED THERAPEUTIC RANGES USING INR : Stable oral anticoagulant therapy: 2.0 - 3.0 Mechanical prosthetic heart valve: 2.5 - 3.5 Recurrent acute myocardial infarction: 2.5 - 3.5 Plasma 10/18/2025 11:2 1 AM EST 10/18/2025 11:25 AM EST Aspen Parr MD LAB BLOOD ORDERABLES Final Resul t Performing Organization Address [facility] Co de Phone Number [facility] [address] * (ABNORMAL) CBC (10/18/2025 11:21 AM EST) WBC 10.9(H) 3.8 - 10.8 10E3/uL 10/18/2025 11:44 AM EST [facility] RBC 3.10(L) 4.20 - 5.80 10E6/uL 10/18/2025 11:44 AM EST [facility] Hemoglobin 10.2(L) 13.2 - 17.1 g/dL 10/18/2025 11:44 AM EST [facility] Hematocrit 29.0(L) 38.5 - 50.0 % 10/18/2025 11:44 AM EST [facility] MCV 93.7 80.0 - 100.0 fL 10/18/2025 11:44 AM EST [facility] MCH 32.9 27.0 - 33.0 pg 10/18/2025 11:44 AM EST [facility] MCHC 35.1 32.0 - 36.0 g/dL 10/18/2025 11:44 AM EST [facility] RDW 18.4(H) 11.0 - 15.0 % 10/18/2025 11:44 AM EST [facility] Platelets 29(L) 140 - 400 10E3/uL 10/18/2025 11:44 AM EST [facility] Comment:CNV MPV 7.6 7.5 - 11.5 fL 10/18/2025 11:44 AM EST [facility] Whole Blood 10/18/2025 11:2 1 AM EST 10/18/2025 11:25 AM EST Aspen Parr MD LAB BLOOD ORDERABLES Final Resul t [facility] [address] [facility]. [address] * (ABNORMAL) POC Glucose Monitoring Device (10/18/2025 11:04 AM EST) POC Glucose Monitoring Device 121(H) 70 - 100 mg/dL 10/18/2025 11:05 AM EST [facility] Blood 10/18/2025 11:0 4 AM EST 10/18/2025 11:05 AM EST Vani Winkler MD POINT OF CARE TEST ORDERABLE S Final Result Performing Organization Address City/[facility]/ZIP Co de Phone Number [facility] [address] [facility]. [address] * (ABNORMAL) POC Glucose Monitoring Device (10/18/2025 10:29 AM EST) POC Glucose Monitoring Device 120(H) 70 - 100 mg/dL 10/18/2025 10:34 AM EST [facility] Blood 10/18/2025 10:2 9 AM EST 10/18/2025 10:34 AM EST Vani Winkler MD POINT OF CARE TEST ORDERABLE S Final Result Performing Organization Address City/[facility]/ZIP Co de Phone Number [facility] [address] [facility]. [place], [place] [address] * US Duplex Wvl-Vhr-Xwnnfue Comp (10/18/2025 9:35 AM EST) Anatomical Region [...] EXAM: US ABDOMEN LIMITED EXAM: US DUPLEX [id number] COMPLETE INDICATION: Post-op liver transplant Day 1 [...] EXAM: US ABDOMEN LIMITED EXAM: US DUPLEX [id number] COMPLETE INDICATION: Post-op liver transplant Day 1 [...] EXAM: US ABDOMEN LIMITED EXAM: US DUPLEX [id number] COMPLETE INDICATION: Post-op liver transplant Day 1 [...] EXAM: US ABDOMEN LIMITED EXAM: US DUPLEX [id number] COMPLETE INDICATION: Post-op liver transplant Day 1 [...] 10/18/2025 9:53 AM EST Aspen Parr MD [facility] US ORDERABLES Final Result * (ABNORMAL) POC Glucose Monitoring Device (10/18/2025 9:11 AM EST) POC Glucose Monitoring Device 165(H) 70 - 100 mg/dL 10/18/2025 9:13 AM EST [facility] Blood 10/18/2025 9:11 AM EST 10/18/2025 9:12 AM EST Vani Winkler MD POINT OF CARE TEST ORDERABLE S Final Result [facility] [address] [facility]. [address] * (ABNORMAL) POC Glucose Monitoring Device (10/18/2025 7:56 AM EST) POC Glucose Monitoring Device 179(H) 70 - 100 mg/dL 10/18/2025 7:57 AM EST [facility] Blood 10/18/2025 7:56 AM EST 10/18/2025 7:57 AM EST Vani Winkler MD POINT OF CARE TEST ORDERABLE S Final Result Performing Organization Address City/[facility]/ZIP Co de Phone Number [facility] [address] [facility]. [address] * (ABNORMAL) POC Glucose Monitoring Device (10/18/2025 6:59 AM EST) POC Glucose Monitoring Device 187(H) 70 - 100 mg/dL 10/18/2025 7:00 AM EST [facility] Blood 10/18/2025 6:59 AM EST 10/18/2025 7:00 AM EST Vani Winkler MD POINT OF CARE TEST ORDERABLE S Final Result [facility] [address] [facility]. [address] * X-ray Portable Chest (10/18/2025 6:37 [...] below level of diaphragms and outside the [id number]. Right internal jugular approach pulmonary artery catheter [...] courses below level of diaphragms andoutside the [id number]. Right internal jugular approach pulmonaryartery catheter projects [...] 7:02 AM EST us Aspen Parr MD [facility] DIAGNOSTIC IMAGING ORDERABLE S Final Result * Prepare Platelets, leukoreduced, 1 Units (10/18/2025 6:17 AM EST) Product Code R6968E39 [facility] Unit Number [id number] HCLL Dispense Status Presumed Transfused_PT HCLL Blood Expiration Date HCLL Coding System [id number] HCLL Blood Bank Product Oskar Torres MD BLOOD BANK PRODUCT ORDERABLES Final Result Performing Organization Address [facility]/ZIP Co de Phone Number [facility] * Prepare Platelets, leukoreduced, 2 Units (10/18/2025 6:17 AM EST) Product Code EM058K86 [facility] Unit Number [id number] HCLL Dispense Status Presumed Transfused_PT HCLL Blood Expiration Date HCLL Coding System [id number] HCLL Product Code O1539T39 [facility] Unit Number [id number] HCLL Dispense Status Presumed Transfused_PT HCLL Blood Expiration Date HCLL Coding System RZUZ029 [facility]LL Blood Bank Product Slade Munoz MD BLOOD BANK PRODUCT ORDERABLES Fi nal Result Performing Organization Address City/[facility]/ZIP Co de Phone Number [facility] * Prepare RBC, leukoreduced, 5 Units (10/18/2025 6:16 AM EST) Product Code E9815V98 [facility] Unit Number [id number] HCLL Dispense Status Presumed Transfused_PT HCLL Blood Expiration Date HCLL Coding System OVAP997 HCLL Product Code H3455V97 [facility] Unit Number [id number] HCLL Dispense Status Presumed Transfused_PT HCLL Blood Expiration Date HCLL Coding System PWRX725 HCLL Product Code X8194J11 HCLL Unit Number [id number] HCLL Dispense Status Presumed Transfused_PT HCLL Blood Expiration Date HCLL Coding System CWOG890 HCLL Product Code G7981C10 [facility] Unit Number [id number] HCLL Dispense Status Released from Crossmatch_RE HCLL Blood Expiration Date HCLL Coding System IPND013 HCLL Product Code F9190M94 HCLL Unit Number [id number] HCLL Dispense Status Presumed Transfused_PT HCLL Blood Expiration Date HCLL Coding System [id number] HCLL Blood Bank Product Kassi INTERIANO BLOOD BANK PRODUCT ORDERABLES Final Result Performing Organization Address [facility] de Phone Number HCLL * Prepare Cryoprecipitate (10/18/2025 6:15 AM EST) Product Code F3190J20 [facility] Unit Number [id number] HCLL Dispense Status Presumed Transfused_PT HCLL Blood Expiration Date HCLL Coding System DWWZ849 HCLL Attending Provider Unknown BLOOD BANK PRODUCT OR DERABLES Final Result Performing Organization Address [facility] de Phone Number HC[facility] * Prepare Cryoprecipitate, 1 Units (10/18/2025 6:15 AM EST) Product Code L8362M77 [facility]LL Unit Number [id number] HCLL Dispense Status Presumed Transfused_PT HCLL Blood Expiration Date HCLL Coding System TCGH742 HCLL Blood Bank Product Oskar Torres MD BLOOD BANK PRODUCT ORDERABLES Final Result Performing Organization Address [facility] de Phone Number HC[facility] * Prepare Cryoprecipitate, 1 Units (10/18/2025 6:15 AM EST) Product Code P1130N30 [facility] Unit Number [id number] HCLL Dispense Status Presumed Transfused_PT HCLL Blood Expiration Date HCLL Coding System FHNV041 HCLL Product Code Y5177Q86 HCLL Unit Number [id number] HCLL Dispense Status Presumed Transfused_PT HCLL Blood Expiration Date HCLL Coding System TMJJ910 HCLL Blood Bank Product Shannan Salas MD BLOOD BANK PRODUCT ORDERABLE S Final Result [facility] * Prepare Cryoprecipitate, 1 Units (10/18/2025 6:15 AM EST) Product Code D2220D22 [facility]LL Unit Number [id number] HCLL Dispense Status Presumed Transfused_PT HCLL Blood Expiration Date HCLL Coding System XSRS716 HCLL Blood Bank Product Slade Munoz MD BLOOD BANK PRODUCT ORDERABLES Fi nal Result Performing Organization Address [facility] de Phone Number HC[facility] * Prepare Cryoprecipitate, 1 Units (10/18/2025 6:15 AM EST) Product Code P6371X88 HCLL Unit Number [id number] HCLL Dispense Status Presumed Transfused_PT HCLL Blood Expiration Date HCLL Coding System PFTC553 HCLL Blood Bank Product Slade Munoz MD BLOOD BANK PRODUCT ORDERABLES Fi nal Result Performing Organization Address [facility] Co de Phone Number [facility] * Prepare RBC, leukoreduced (10/18/2025 6:15 AM EST) Product Code Q7480X09 [facility]LL Unit Number [id number] HCLL Dispense Status Released from Crossmatch_RE HCLL Blood Expiration Date HCLL Coding System LWPS918 HCLL Product Code Y4751R21 HCLL Unit Number [id number] HCLL Dispense Status Released from Crossmatch_RE HCLL Blood Expiration Date HCLL Coding System JCER664 HCLL Product Code Q0165H06 HCLL Unit Number [id number] HCLL Dispense Status Released from Crossmatch_RE HCLL Blood Expiration Date HCLL Coding System DSNS387 HCLL Product Code P6039S75 HCLL Unit Number [id number] HCLL Dispense Status Released from Crossmatch_RE HCLL Blood Expiration Date HCLL Coding System FNHT649 HCLL Product Code X8575D33 HCLL Unit Number [id number] HCLL Dispense Status Presumed Transfused_PT HCLL Blood Expiration Date HCLL Coding System PVTU895 HCLL us Attending Provider Unknown BLOOD BANK PRODUCT OR DERABLES Final Result Performing Organization Address City/[facility]/ZIP Co de Phone Number HC[facility] * Prepare Fresh Frozen Plasma, 5 Units (10/18/2025 6:15 AM EST) Product Code F2977G31 HCLL Unit Number [id number] HCLL Dispense Status Presumed Transfused_PT HCLL Blood Expiration Date HCLL Coding System ETHE024 HCLL Product Code N4732X35 HCLL Unit Number [id number] HCLL Dispense Status Presumed Transfused_PT HCLL Blood Expiration Date HCLL Coding System ULMS880 HCLL Product Code Q9625A30 HCLL Unit Number [id number] HCLL Dispense Status Presumed Transfused_PT HCLL Blood Expiration Date HCLL Coding System NTKU459 HCLL Product Code I5931U56 HCLL Unit Number [id number] HCLL Dispense Status Presumed Transfused_PT HCLL Blood Expiration Date HCLL Coding System PSCS375 HCLL Product Code G3634V89 HCLL Unit Number [id number] HCLL Dispense Status Presumed Transfused_PT HCLL Blood Expiration Date HCLL Coding System LCCH645 HCLL Blood Bank Product Kassi INTERIANO BLOOD BANK PRODUCT ORDERABLES Final Result HC[facility] * (ABNORMAL) POC Glucose Monitoring Device (10/18/2025 6:06 AM EST) POC Glucose Monitoring Device 214(H) 70 - 100 mg/dL 10/18/2025 6:06 AM EST [facility] Blood 10/18/2025 6:06 AM EST 10/18/2025 6:06 AM EST us Vani Winkler MD POINT OF CARE TEST ORDERABLE S Final Result [facility] [address] * (ABNORMAL) Blood gas, arterial (10/18/2025 5:19 AM EST) O2 Sat, Arterial 97 10/18/2025 5:28 AM EST [facility] FIO2 40 10/18/2025 5:28 AM [facility] pH, Arterial 7.34(L) 7.35 - 7.45 10/18/2025 5:28 AM [facility] pCO2, Arterial 48(H) 35 - 45 mm Hg 10/18/2025 5:28 AM [facility] pO2, Arterial 84 80 - 100 mm Hg 10/18/2025 5:28 AM [facility] HCO3, Arterial 25 22 - 26 mmol/L 10/18/2025 5:28 AM [facility] CO2 Content,Arteri al 27 23 - 27 mmol/L 10/18/2025 5:28 AM [facility] Base Excess, Arterial -0.2 -2.0 - 3.0 mmol/L 10/18/2025 5:28 AM [facility] %HBO2, Arterial 94.1(L) 95.0 - 98.0 % 10/18/2025 5:28 AM EST [facility] Carboxyhemoglo bin, Arterial 2.5 % 10/18/2025 5:28 AM [facility] Comment: CARBOXYHEMOGLOBIN (CO) REFERENCE RANGES: Non-Smokers: <2 % Smokers: <8 % TOXIC: >20 % Methemoglobin, Arterial 0.5 0.0 - 1.5 % 10/18/2025 5:28 AM EST [facility] Blood, Arterial 10/18/2025 5 :19 AM EST 10/18/2025 5:25 AM EST us Vani Winkler MD LAB BLOOD ORDERABLES Final R esult Performing Organization Address City/[facility]/ZIP Co de Phone Number [facility] [address] * Lactic Acid (10/18/2025 5:02 AM EST) Lactate 1.0 0.5 - 2.2 mmol/L 10/18/2025 5:47 AM EST [facility] Plasma 10/18/2025 5:02 AM EST 10/18/2025 5:09 AM EST us Aspen Parr MD LAB BLOOD ORDERABLES Final Resul t Performing Organization Address City/[facility]/ZIP Co de Phone Number [facility] [address] * Magnesium (10/18/2025 5:02 AM EST) Magnesium 2.0 1.5 - 2.5 mg/dL 10/18/2025 6:05 AM EST [facility] Plasma 10/18/2025 5:02 AM EST 10/18/2025 5:13 AM EST us Aspen Parr MD LAB BLOOD ORDERABLES Final Resul t Performing Organization Address City/[facility] Co de Phone Number [facility] [address] [facility]. [address] * (ABNORMAL) Hepatic Function Panel (10/18/2025 5:02 AM EST) Total Bilirubin 1.5 0.0 - 1.5 mg/dL 10/18/2025 6:05 AM EST [facility] Bilirubin, Direct 0.77(H) 0.00 - 0.40 mg/dL 10/18/2025 6:05 AM [facility] AST 2,612(H) 13 - 39 U/L 10/18/2025 6:05 AM [facility] ALT 1072(H) 7 - 52 U/L 10/18/2025 6:05 AM [facility] Alkaline Phosphatase 50 36 - 125 U/L 10/18/2025 6:05 AM [facility] Total Protein 4.0(L) 6.4 - 8.9 g/dL 10/18/2025 6:05 AM [facility] Albumin 2.2(L) 3.5 - 5.7 g/dL 10/18/2025 6:05 AM [facility] Bilirubin, Indirect 0.73 0.00 - 1.10 mg/dL 10/18/2025 6:05 AM [facility] Plasma 10/18/2025 5:02 AM EST 10/18/2025 5:13 AM EST us Aspen Parr MD LAB BLOOD ORDERABLES Final Resul t Performing Organization Address City/State/[facility] Co de Phone Number [facility] [address] * (ABNORMAL) Renal Function Panel w/EGFR (10/18/2025 5:02 AM EST) Sodium 146 133 - 146 mmol/L 10/18/2025 6:05 AM [facility] Potassium 3.4(L) 3.5 - 5.3 mmol/L 10/18/2025 6:05 AM [facility] Chloride 111(H) 98 - 110 mmol/L 10/18/2025 6:05 AM [facility] CO2 26 21 - 33 mmol/L 10/18/2025 6:05 AM [facility] Comment:High lactate dehydro genase concentrations in patient samples may cause falsely increased bicarbonate results. If markedly elevated LDH is observed or suspected, please assess results in conjunction with patient`s clinical presentation. In cases of discrepant results, consider evaluating CO2 in with a blood gas order. Anion Gap 9 3 - 16 mmol/L 10/18/2025 6:05 AM [facility] BUN 22 7 - 25 mg/dL 10/18/2025 6:05 AM EST [facility] Creatinine 0.93 0.60 - 1.30 mg/dL 10/18/2025 6:05 AM EST [facility] Glucose 193(H) 70 - 100 mg/dL 10/18/2025 6:05 AM EST [facility] Calcium 7.8(L) 8.6 - 10.3 mg/dL 10/18/2025 6:05 AM EST [facility] Phosphorus 3.0 2.1 - 4.7 mg/dL 10/18/2025 6:05 AM EST [facility] Albumin 2.2(L) 3.5 - 5.7 g/dL 10/18/2025 6:05 AM EST [facility] Osmolality, Calculated 311(H) 278 - 305 mOsm/kg 10/18/2025 6:05 AM EST [facility] EGFR >90 10/18/2025 6:05 AM EST [facility] Comment: As of 2022, the [...] MD LAB BLOOD ORDERABLES Final Resul t [facility] [address] * (ABNORMAL) Protime-INR (10/18/2025 5:02 AM EST) Protime 26.0(H) 12.1 - 15.1 seconds 10/18/2025 5:32 AM EST [facility] INR 2.2(H) 0.9 - 1.1 10/18/2025 5:32 AM EST [facility] Comment: RECOMMENDED THERAPEUTIC RANGES USING INR : Stable oral anticoagulant therapy: 2.0 - 3.0 Mechanical prosthetic heart valve: 2.5 - 3.5 Recurrent acute myocardial infarction: 2.5 - 3.5 Plasma 10/18/2025 5:02 AM EST 10/18/2025 5:13 AM EST us Aspen Parr MD LAB BLOOD ORDERABLES Final Resul t [facility] [address] * (ABNORMAL) CBC (10/18/2025 5:02 AM EST) WBC 7.0 3.8 - 10.8 10E3/uL 10/18/2025 5:27 AM EST [facility] RBC 2.94(L) 4.20 - 5.80 10E6/uL 10/18/2025 5:27 AM EST [facility] Hemoglobin 9.6(L) 13.2 - 17.1 g/dL 10/18/2025 5:27 AM EST [facility] Hematocrit 27.6(L) 38.5 - 50.0 % 10/18/2025 5:27 AM EST [facility] MCV 94.0 80.0 - 100.0 fL 10/18/2025 5:27 AM EST [facility] MCH 32.6 27.0 - 33.0 pg 10/18/2025 5:27 AM EST [facility] MCHC 34.7 32.0 - 36.0 g/dL 10/18/2025 5:27 AM EST [facility] RDW 19.0(H) 11.0 - 15.0 % 10/18/2025 5:27 AM EST [facility] Platelets 36(L) 140 - 400 10E3/uL 10/18/2025 5:27 AM EST [facility] Comment:CNV MPV 8.1 7.5 - 11.5 fL 10/18/2025 5:27 AM EST [facility] Whole Blood 10/18/2025 5:02 AM EST 10/18/2025 5:13 AM EST us Aspen Parr MD LAB BLOOD ORDERABLES Final Resul t [facility] [address] [facility]. [address] * (ABNORMAL) POC Glucose Monitoring Device (10/18/2025 5:00 AM EST) POC Glucose Monitoring Device 231(H) 70 - 100 mg/dL 10/18/2025 5:06 AM EST [facility] Blood 10/18/2025 5:00 AM EST 10/18/2025 5:06 AM EST Vani Winkler MD POINT OF CARE TEST ORDERABLE S Final Result Performing Organization Address City/[facility]/ZIP Co de Phone Number [facility] [address] [facility]. [address] * (ABNORMAL) POC Glucose Monitoring Device (10/18/2025 4:05 AM EST) POC Glucose Monitoring Device 244(H) 70 - 100 mg/dL 10/18/2025 4:06 AM EST [facility] Blood 10/18/2025 4:05 AM EST 10/18/2025 4:06 AM EST Vani Winkler MD POINT OF CARE TEST ORDERABLE S Final Result Performing Organization Address City/[facility]/ZIP Co de Phone Number [facility] [address] * (ABNORMAL) POC Glucose Monitoring Device (10/18/2025 3:02 AM EST) POC Glucose Monitoring Device 246(H) 70 - 100 mg/dL 10/18/2025 3:07 AM EST [facility] Blood 10/18/2025 3:02 AM EST 10/18/2025 3:07 AM EST Vani Winkler MD POINT OF CARE TEST ORDERABLE S Final Result [facility] [address] [facility]. [address] * (ABNORMAL) POC Glucose Monitoring Device (10/18/2025 2:05 AM EST) POC Glucose Monitoring Device 249(H) 70 - 100 mg/dL 10/18/2025 2:14 AM EST [facility] Blood 10/18/2025 2:05 AM EST 10/18/2025 2:14 AM EST Vani Winkler MD POINT OF CARE TEST ORDERABLE S Final Result Performing Organization Address City/[facility]/ZIP Co de Phone Number [facility] [address] [facility]. [address] * (ABNORMAL) POC Glucose Monitoring Device (10/18/2025 1:06 AM EST) POC Glucose Monitoring Device 237(H) 70 - 100 mg/dL 10/18/2025 1:07 AM EST [facility] Blood 10/18/2025 1:06 AM EST 10/18/2025 1:07 AM EST Vani Winkler MD POINT OF CARE TEST ORDERABLE S Final Result [facility] [address] [facility]. [address] * (ABNORMAL) POC Glucose Monitoring Device (10/17/2025 11:55 PM EST) POC Glucose Monitoring Device 227(H) 70 - 100 mg/dL 10/18/2025 12:06 AM EST [facility] Blood 10/17/2025 11:5 5 PM EST 10/18/2025 12:06 AM EST us Vani Winkler MD POINT OF CARE TEST ORDERABLE S Final Result [facility] [address] [place] [address], [facility] * XR Portable Feeding Tube Check [...] - 5.40 mg/dL 10/17/2025 11:15 PM EST [facility] Comment:Free calcium levels vary inversely with pH by approximately 5% for each 0.1 unit of pH change. Assay results have been normalized to pH = 7.40. Serum 10/17/2025 10:5 0 PM EST 10/17/2025 10:55 PM EST [facility] - 10/17/2025 11:15 PM EST This test has been developed and its performance characteristics determined by [facility] which is certified under the [...] El MD LAB BLOOD ORDERABLES Final Result [facility] [address] [address] * (ABNORMAL) TEG-Standard Global Hemostasis (Rapid TEG with Heparin Effect, Contains a Baseline TEG) (10/17/2025 10:50 PM EST) [facility] Citrated Kaolin Reaction Time (TEGHEPARINASE) 12.7(H) 4.6 - 9.1 minutes 10/18/2025 12:03 AM EST [facility] Citrated Rapid Teg Maximum Amplitude (TEGHEPARINASE) 47.8(L) 52.0 - 70.0 mm 10/18/2025 12:03 AM EST [facility] Citrated Functional Fibrinogen Maximum Amplitude (TEGHEPARINASE) 16.8 15.0 - 32.0 mm 10/18/2025 12:03 AM EST [facility] Citrated Kaolin W/Heparinase Reaction Time (TEGHEPARINASE) 11.0(H) 4.3 - 8.3 minutes 10/18/2025 12:03 AM EST [facility] Citrated Kaolin K-Time (TEGHEPARINASE) 4.9(H) 0.8 - 2.1 minutes 10/18/2025 12:03 AM EST [facility] Citrated Kaolin Angle (TEGHEPARINASE) 40.0(L) 63.0 - 78.0 degrees 10/18/2025 12:03 AM EST [facility] Citrated Kaolin Maximum Amplitude (TEGHEPARINASE) 45.2(L) 52.0 - 69.0 mm 10/18/2025 12:03 AM EST [facility] Citrated Functional Fibrinogen- Fibrinogen Level (TEGHEPARINASE) 306.6 278.0 - 581.0 mg/dL 10/18/2025 12:03 AM EST [facility] Whole Blood (Citrate) 10/17/2025 10:50 PM EST 10/17/2025 10:55 PM EST us Aspen Parr MD LAB BLOOD ORDERABLES Final Resul t [facility] [address] [facility]. [address] * Lactic Acid (10/17/2025 10:50 PM EST) Lactate 1.1 0.5 - 2.2 mmol/L 10/17/2025 11:51 PM EST [facility] Plasma 10/17/2025 10:5 0 PM EST 10/17/2025 10:55 PM EST Aspen Parr MD LAB BLOOD ORDERABLES Final Resul t [facility] [address] * Fibrinogen (10/17/2025 10:50 PM EST) Fibrinogen 253 218 - 406 mg/dL 10/17/2025 11:06 PM EST [facility] Plasma 10/17/2025 10:5 0 PM EST 10/17/2025 10:55 PM EST Aspen aPrr MD LAB BLOOD ORDERABLES Final Resul t Performing Organization Address City/[facility]/ZIP Co de Phone Number [facility] [address] [facility]. [address] * (ABNORMAL) Protime-INR (10/17/2025 10:50 PM EST) Protime 25.2(H) 12.1 - 15.1 seconds 10/17/2025 11:06 PM EST [facility] INR 2.1(H) 0.9 - 1.1 10/17/2025 11:06 PM EST [facility] Comment: RECOMMENDED THERAPEUTIC RANGES USING INR : Stable oral anticoagulant therapy: 2.0 - 3.0 Mechanical prosthetic heart valve: 2.5 - 3.5 Recurrent acute myocardial infarction: 2.5 - 3.5 Plasma 10/17/2025 10:5 0 PM EST 10/17/2025 10:55 PM EST Aspen Parr MD LAB BLOOD ORDERABLES Final Resul t Performing Organization Address City/[facility]/ZIP Co de Phone Number [facility] [address] [place] [address], [facility] * (ABNORMAL) Blood gas, arterial (10/17/2025 10:50 PM EST) O2 Sat, Arterial 100 10/17/2025 11:00 PM EST [facility] FIO2 80 fio2 10/17/2025 11:00 PM EST [facility] pH, Arterial 7.38 7.35 - 7.45 10/17/2025 11:00 PM EST [facility] pCO2, Arterial 41 35 - 45 mm Hg 10/17/2025 11:00 PM EST [facility] pO2, Arterial 216(H) 80 - 100 mm Hg 10/17/2025 11:00 PM EST [facility] HCO3, Arterial 24 22 - 26 mmol/L 10/17/2025 11:00 PM EST [facility] CO2 Content,Arteri al 26 23 - 27 mmol/L 10/17/2025 11:00 PM EST [facility] Base Excess, Arterial -0.8 -2.0 - 3.0 mmol/L 10/17/2025 11:00 PM EST [facility] %HBO2, Arterial 95.2 95.0 - 98.0 % 10/17/2025 11:00 PM EST [facility] Carboxyhemoglo bin, Arterial 3.3 % 10/17/2025 11:00 PM EST [facility] Comment: CARBOXYHEMOGLOBIN (CO) REFERENCE RANGES: Non-Smokers: <2 % Smokers: <8 % TOXIC: >20 % Methemoglobin, Arterial 1.6(H) 0.0 - 1.5 % 10/17/2025 11:00 PM EST [facility] Blood, Arterial 10/17/2025 1 0:50 PM EST 10/17/2025 10:55 PM EST Aspen Parr MD LAB BLOOD ORDERABLES Final Resul t Performing Organization Address City/[facility]/ZIP Co de Phone Number [facility] [address] [place] [address], [facility] * Magnesium (10/17/2025 10:50 PM EST) Magnesium 1.8 1.5 - 2.5 mg/dL 10/18/2025 12:13 AM EST [facility] Plasma 10/17/2025 10:5 0 PM EST 10/17/2025 10:55 PM EST us Aspen Parr MD LAB BLOOD ORDERABLES Final Resul t Performing Organization Address [facility]/ZIP Co de Phone Number [facility] [address] [facility]. [address] * (ABNORMAL) Hepatic Function Panel (10/17/2025 10:50 PM EST) Total Bilirubin 4.5(H) 0.0 - 1.5 mg/dL 10/18/2025 12:13 AM EST [facility] Bilirubin, Direct 3.22(H) 0.00 - 0.40 mg/dL 10/18/2025 12:13 AM EST [facility] AST 3,332(H) 13 - 39 U/L 10/18/2025 12:13 AM EST [facility] ALT 1141(H) 7 - 52 U/L 10/18/2025 12:13 AM EST [facility] Alkaline Phosphatase 63 36 - 125 U/L 10/18/2025 12:13 AM EST [facility] Total Protein 4.0(L) 6.4 - 8.9 g/dL 10/18/2025 12:13 AM EST [facility] Albumin 2.2(L) 3.5 - 5.7 g/dL 10/18/2025 12:13 AM EST [facility] Bilirubin, Indirect 1.28(H) 0.00 - 1.10 mg/dL 10/18/2025 12:13 AM EST [facility] Plasma 10/17/2025 10:5 0 PM EST 10/17/2025 10:55 PM EST us Aspen Parr MD LAB BLOOD ORDERABLES Final Resul t [facility] [address] [facility]. [address] * (ABNORMAL) Renal Function Panel w/EGFR (10/17/2025 10:50 PM EST) Sodium 145 133 - 146 mmol/L 10/18/2025 12:13 AM [facility] Potassium 3.7 3.5 - 5.3 mmol/L 10/18/2025 12:13 AM [facility] Chloride 110 98 - 110 mmol/L 10/18/2025 12:13 AM [facility] CO2 27 21 - 33 mmol/L 10/18/2025 12:13 AM [facility] Comment:High lactate dehydro genase concentrations in patient samples may cause falsely increased bicarbonate results. If markedly elevated LDH is observed or suspected, please assess results in conjunction with patient`s clinical presentation. In cases of discrepant results, consider evaluating CO2 in with a blood gas order. Anion Gap 8 3 - 16 mmol/L 10/18/2025 12:13 AM [facility] BUN 17 7 - 25 mg/dL 10/18/2025 12:13 AM [facility] Creatinine 0.79 0.60 - 1.30 mg/dL 10/18/2025 12:13 AM [facility] Glucose 225(H) 70 - 100 mg/dL 10/18/2025 12:13 AM [facility] Calcium 8.2(L) 8.6 - 10.3 mg/dL 10/18/2025 12:13 AM [facility] Phosphorus 3.9 2.1 - 4.7 mg/dL 10/18/2025 12:13 AM [facility] Albumin 2.2(L) 3.5 - 5.7 g/dL 10/18/2025 12:13 AM [facility] Osmolality, Calculated 309(H) 278 - 305 mOsm/kg 10/18/2025 12:13 AM [facility] EGFR >90 10/18/2025 12:13 AM [facility] Comment: As of 2022, [...] MD LAB BLOOD ORDERABLES Final Resul t [facility] [address] * (ABNORMAL) CBC (10/17/2025 10:50 PM EST) WBC 5.8 3.8 - 10.8 10E3/uL 10/17/2025 11:03 PM EST [facility] RBC 2.93(L) 4.20 - 5.80 10E6/uL 10/17/2025 11:03 PM EST [facility] Hemoglobin 9.5(L) 13.2 - 17.1 g/dL 10/17/2025 11:03 PM EST [facility] Hematocrit 27.5(L) 38.5 - 50.0 % 10/17/2025 11:03 PM EST [facility] MCV 93.9 80.0 - 100.0 fL 10/17/2025 11:03 PM EST [facility] MCH 32.6 27.0 - 33.0 pg 10/17/2025 11:03 PM EST [facility] MCHC 34.7 32.0 - 36.0 g/dL 10/17/2025 11:03 PM EST [facility] RDW 18.1(H) 11.0 - 15.0 % 10/17/2025 11:03 PM EST [facility] Platelets 52(L) 140 - 400 10E3/uL 10/17/2025 11:03 PM EST [facility] MPV 7.1(L) 7.5 - 11.5 fL 10/17/2025 11:03 PM EST [facility] Whole Blood 10/17/2025 10:5 0 PM EST 10/17/2025 10:55 PM EST us Aspen Parr MD LAB BLOOD ORDERABLES Final Resul t [facility] [address] [facility]. [address] * (ABNORMAL) POC Glucose Monitoring Device (10/17/2025 10:47 PM EST) POC Glucose Monitoring Device 234(H) 70 - 100 mg/dL 10/17/2025 10:48 PM EST [facility] Blood 10/17/2025 10:4 7 PM EST 10/17/2025 10:47 PM EST Vani Winkler MD POINT OF CARE TEST ORDERABLE S Final Result Performing Organization Address City/[facility]/ZIP Co de Phone Number [facility] [address] [facility]. [address] * POC Sample Type (10/17/2025 9:25 PM EST) POC Sample Type Arterial 10/17/2025 9:51 PM EST [facility] Blood, Arterial 10/17/2025 9 :25 PM EST 10/17/2025 9:51 PM EST Vani Winkler MD POINT OF CARE TEST ORDERABLE S Final Result Performing Organization Address City/[facility]/ZIP Co de Phone Number [facility] [address] [facility]. [address] * POC Anion Gap (10/17/2025 9:25 PM EST) POC Anion Gap, Arterial 9 3 - 16 mmol/L 10/17/2025 9:51 PM EST [facility] Blood, Arterial 10/17/2025 9 :25 PM EST 10/17/2025 9:51 PM EST Vani Winkler MD POINT OF CARE TEST ORDERABLE S Final Result [facility] [address] [facility]. [address] * (ABNORMAL) POC Chloride (10/17/2025 9:25 PM EST) POC Chloride 111(H) 98 - 110 mmol/L 10/17/2025 9:51 PM EST [facility] Blood, Arterial 10/17/2025 9 :25 PM EST 10/17/2025 9:51 PM EST Vani Winkler MD POINT OF CARE TEST ORDERABLE S Final Result Performing Organization Address City/[facility]/ZIP Co de Phone Number [facility] [address] * (ABNORMAL) POC Hemoglobin (10/17/2025 9:25 PM EST) POC Hemoglobin 9.0(L) 14.0 - 18.0 g/dL 10/17/2025 9:51 PM EST [facility] Blood, Arterial 10/17/2025 9 :25 PM EST 10/17/2025 9:51 PM EST Vani Winkler MD POINT OF CARE TEST ORDERABLE S Final Result [facility] [address] [facility]. [address] * (ABNORMAL) POC hematocrit (10/17/2025 9:25 PM EST) POC Hematocrit 26.0(L) 40 - 52 % 10/17/2025 9:51 PM EST [facility] Blood, Arterial 10/17/2025 9 :25 PM EST 10/17/2025 9:51 PM EST Vani Winkler MD POINT OF CARE TEST ORDERABLE S Final Result [facility] [address] [facility]. [address] * POC Lactate (10/17/2025 9:25 PM EST) POC Lactate 1.50 0.50 - 2.20 mmol/L 10/17/2025 9:51 PM EST [facility] Blood, Arterial 10/17/2025 9 :25 PM EST 10/17/2025 9:51 PM EST Vani Winkler MD POINT OF CARE TEST ORDERABLE S Final Result Performing Organization Address City/[facility]/ZIP Co de Phone Number [facility] [address] [facility]. [address] * (ABNORMAL) POC Glucose (10/17/2025 9:25 PM EST) Pathologist [facility] POC Glucose, Arterial 227(H) 70 - 100 mg/dL 10/17/2025 9:51 PM EST [facility] Blood, Arterial 10/17/2025 9 :25 PM EST 10/17/2025 9:51 PM EST Vani Winkler MD POINT OF CARE TEST ORDERABLE S Final Result [facility] [address] [facility]. [address] * POC Ionized Calcium (10/17/2025 9:25 PM EST) POC Ionized Calcium 4.90 4.50 - 5.30 mg/dL 10/17/2025 9:51 PM EST [facility] Blood, Arterial 10/17/2025 9 :25 PM EST 10/17/2025 9:51 PM EST us Vani Winkler MD POINT OF CARE TEST ORDERABLE S Final Result [facility] [address] [facility]. [address] * POC Potassium (10/17/2025 9:25 PM EST) POC Potassium 3.7 3.5 - 5.3 mmol/L 10/17/2025 9:51 PM EST [facility] Blood, Arterial 10/17/2025 9 :25 PM EST 10/17/2025 9:51 PM EST us Vani Winkler MD POINT OF CARE TEST ORDERABLE S Final Result [facility] [address] [facility]. [address] * POC Sodium (10/17/2025 9:25 PM EST) POC Sodium 142 136 - 146 mmol/L 10/17/2025 9:51 PM EST [facility] Blood, Arterial 10/17/2025 9 :25 PM EST 10/17/2025 9:51 PM EST us Vani Winkler MD POINT OF CARE TEST ORDERABLE S Final Result [facility] [address] [facility]. [address] * POC TCO2 (10/17/2025 9:25 PM EST) POC TCO2, Arterial 23 23 - 27 mmol/L 10/17/2025 9:51 PM EST [facility] Blood, Arterial 10/17/2025 9 :25 PM EST 10/17/2025 9:51 PM EST us Vani Winkler MD POINT OF CARE TEST ORDERABLE S Final Result [facility] [address] * (ABNORMAL) POC O2 SAT (10/17/2025 9:25 PM EST) POC O2 Saturation, Arterial 99(H) 95 - 98 % 10/17/2025 9:51 PM EST [facility] Blood, Arterial 10/17/2025 9 :25 PM EST 10/17/2025 9:51 PM EST Vani Winkler MD POINT OF CARE TEST ORDERABLE S Final Result [facility] [address] * (ABNORMAL) POC Base Excess (10/17/2025 9:25 PM EST) POC Base Excess, Arterial -3(L) -2 - 3 mmol/L 10/17/2025 9:51 PM EST [facility] Blood, Arterial 10/17/2025 9 :25 PM EST 10/17/2025 9:51 PM EST Vani Winkler MD POINT OF CARE TEST ORDERABLE S Final Result [facility] [address] * POC HCO3 (10/17/2025 9:25 PM EST) POC HCO3, Arterial 22 22 - 26 mmol/L 10/17/2025 9:51 PM EST [facility] Blood, Arterial 10/17/2025 9 :25 PM EST 10/17/2025 9:51 PM EST Vani Winkler MD POINT OF CARE TEST ORDERABLE S Final Result [facility] [address] * (ABNORMAL) POC PO2 (10/17/2025 9:25 PM EST) POC pO2, Arterial 161(H) 80 - 100 mm Hg 10/17/2025 9:51 PM EST [facility] Blood, Arterial 10/17/2025 9 :25 PM EST 10/17/2025 9:51 PM EST Vani Winkler MD POINT OF CARE TEST ORDERABLE S Final Result [facility] [address] [facility]. [address] * POC PCO2 (10/17/2025 9:25 PM EST) POC pCO2, Arterial 38 35 - 45 mm Hg 10/17/2025 9:51 PM EST [facility] Blood, Arterial 10/17/2025 9 :25 PM EST 10/17/2025 9:51 PM EST Vani Winkler MD POINT OF CARE TEST ORDERABLE S Final Result [facility] [address] [facility]. [address] * POC pH (10/17/2025 9:25 PM EST) POC pH, Arterial 7.37 7.35 - 7.45 10/17/2025 9:51 PM EST [facility] Blood, Arterial 10/17/2025 9 :25 PM EST 10/17/2025 9:51 PM EST Vani Winkler MD POINT OF CARE TEST ORDERABLE S Final Result [facility] [address] [facility]. [address] * (ABNORMAL) POC INR (10/17/2025 9:24 PM EST) Prothrombin Time INR, POC 2.3(H) 0.8 - 1.4 10/18/2025 12:08 AM EST [facility] Comment: Test results may vary using different testing platforms. Serial result monitoring should be performed using the same methodology. RECOMMENDED THERAPEUTIC RANGES USING INR : Stable oral anticoagulant therapy: 2.0 - 3.0 Mechanical prosthetic heart valve: 2.5 - 3.5 Recurrent acute myocardial infarction: 2.5 - 3.5 Blood 10/17/2025 9:24 PM EST 10/18/2025 12:07 AM EST Result [facility] Vani Winkler MD POINT OF CARE TEST ORDERABLE S Final Result [facility] [address] [id number], [facility] * Transfuse Fresh Frozen Plasma (10/17/2025 9:17 PM EST) Result [facility] Shannan Salas MD NURSING TREATMENT ORDERABLES - BLOOD ADMIN Final Result * Transfuse Platelets (10/17/2025 9:01 PM EST) Result [facility] Slade Munoz MD NURSING TREATMENT ORDERABLES - B LOOD ADMIN Final Result * Transfuse Cryoprecipitate (10/17/2025 8:49 PM EST) Result [facility] Slade Munoz MD NURSING TREATMENT ORDERABLES - B LOOD ADMIN Final Result * Transfuse Cryoprecipitate (10/17/2025 8:46 PM EST) Result [facility] Slade Munoz MD NURSING TREATMENT ORDERABLES - B LOOD ADMIN Final Result * (ABNORMAL) TEG-Bypass/ECMO/Liver HN (Factor function, Platelet/Fibrin Clot Strength w/Clot Breakdown, Heparinase In All Channels) (10/17/2025 8:31 PM EST) [facility] Citrated Kaolin Reaction Time (TEGECMOLIVER) 9.7(H) 4.6 - 9.1 minutes 10/17/2025 10:13 PM EST [facility] Citrated Kaolin W/Heparinase Reaction Time (TEGECMOLIVER) 3.4(L) 4.3 - 8.3 minutes 10/17/2025 10:13 PM EST [facility] Citrated Kaolin Maximum Amplitude (TEGECMOLIVER) 45.4(L) 52.0 - 69.0 mm 10/17/2025 10:13 PM EST [facility] Citrated Functional Fibrinogen W/Heparinase Maximum Amplitude(TEGEC MOLIVER) 18.0 15.0 - 34.0 mm 10/17/2025 10:13 PM EST [facility] Citrated Rapid Teg W/Heparinase Maximum Amplitude (TEGECMOLIVER) 40.5(L) 53.0 - 69.0 mm 10/17/2025 10:13 PM EST [facility] Citrated Kaolin w/Heparinase Percent Lysis (TEGECMOLIVER) 0.0 0.0 - 3.2 % 10/17/2025 10:13 PM EST [facility] Whole Blood (Citrate) 10/17/2025 8:31 PM EST 10/17/2025 8:40 PM EST Oskar Torres MD LAB BLOOD ORDERABLES Final Re sult Performing Organization Address City/[facility]/ZIP Co de Phone Number [facility] [address] * (ABNORMAL) Fibrinogen (10/17/2025 8:31 PM EST) [facility] Fibrinogen 157(L) 218 - 406 mg/dL 10/17/2025 9:00 PM EST [facility] Plasma 10/17/2025 8:31 PM EST 10/17/2025 8:40 PM EST Oskar Torres MD LAB BLOOD ORDERABLES Final Re sult Performing Organization Address City/[facility]/ZIP Co de Phone Number [facility] [address] * POC Sample Type (10/17/2025 8:22 PM EST) Pathologist [facility] POC Sample Type Arterial 10/17/2025 8:24 PM EST [facility] Blood, Arterial 10/17/2025 8 :22 PM EST 10/17/2025 8:24 PM EST Vani Winkler MD POINT OF CARE TEST ORDERABLE S Final Result [facility] [address] [facility]. [address] * POC Anion Gap (10/17/2025 8:22 PM EST) POC Anion Gap, Arterial 11 3 - 16 mmol/L 10/17/2025 8:24 PM EST [facility] Blood, Arterial 10/17/2025 8 :22 PM EST 10/17/2025 8:24 PM EST Vani Winkler MD POINT OF CARE TEST ORDERABLE S Final Result Performing Organization Address [facility] Co de Phone Number [facility] [address] [facility]. [address] * POC Chloride (10/17/2025 8:22 PM EST) POC Chloride 108 98 - 110 mmol/L 10/17/2025 8:24 PM EST [facility] Blood, Arterial 10/17/2025 8 :22 PM EST 10/17/2025 8:24 PM EST Vani Winkler MD POINT OF CARE TEST ORDERABLE S Final Result Performing Organization Address City/[facility] Co de Phone Number [facility] [address] [place] [address]. [address] * (ABNORMAL) POC Hemoglobin (10/17/2025 8:22 PM EST) POC Hemoglobin 9.5(L) 14.0 - 18.0 g/dL 10/17/2025 8:24 PM EST [facility] Blood, Arterial 10/17/2025 8 :22 PM EST 10/17/2025 8:24 PM EST Vani Winkler MD POINT OF CARE TEST ORDERABLE S Final Result [facility] [address] * (ABNORMAL) POC hematocrit (10/17/2025 8:22 PM EST) POC Hematocrit 28.0(L) 40 - 52 % 10/17/2025 8:24 PM EST [facility] Blood, Arterial 10/17/2025 8 :22 PM EST 10/17/2025 8:24 PM EST Vani Winkler MD POINT OF CARE TEST ORDERABLE S Final Result Performing Organization Address City/[facility]/ZIP Co de Phone Number [facility] [address] [facility]. [address] * POC Lactate (10/17/2025 8:22 PM EST) POC Lactate 1.62 0.50 - 2.20 mmol/L 10/17/2025 8:24 PM EST [facility] Blood, Arterial 10/17/2025 8 :22 PM EST 10/17/2025 8:24 PM EST Vani Winkler MD POINT OF CARE TEST ORDERABLE S Final Result Performing Organization Address [facility]/ZIP Co de Phone Number [facility] [address] [facility]. [address] * (ABNORMAL) POC Glucose (10/17/2025 8:22 PM EST) POC Glucose, Arterial 218(H) 70 - 100 mg/dL 10/17/2025 8:24 PM EST [facility] Blood, Arterial 10/17/2025 8 :22 PM EST 10/17/2025 8:24 PM EST Vani Winkler MD POINT OF CARE TEST ORDERABLE S Final Result Performing Organization Address City/[facility]/ZIP Co de Phone Number [facility] [address] [facility]. [address] * POC Ionized Calcium (10/17/2025 8:22 PM EST) POC Ionized Calcium 4.80 4.50 - 5.30 mg/dL 10/17/2025 8:24 PM EST [facility] Blood, Arterial 10/17/2025 8 :22 PM EST 10/17/2025 8:24 PM EST Vani Winkler MD POINT OF CARE TEST ORDERABLE S Final Result [facility] [address] [place] [address]. [address] * POC Potassium (10/17/2025 8:22 PM EST) Pathologist [facility] POC Potassium 3.8 3.5 - 5.3 mmol/L 10/17/2025 8:24 PM EST [facility] Blood, Arterial 10/17/2025 8 :22 PM EST 10/17/2025 8:24 PM EST Vani Winkler MD POINT OF CARE TEST ORDERABLE S Final Result Performing Organization Address City/[facility]/ZIP Co de Phone Number [facility] [address] [place] [address]. [address] * POC Sodium (10/17/2025 8:22 PM EST) Pathologist [facility] POC Sodium 143 136 - 146 mmol/L 10/17/2025 8:24 PM EST [facility] Blood, Arterial 10/17/2025 8 :22 PM EST 10/17/2025 8:24 PM EST Vani Winkler MD POINT OF CARE TEST ORDERABLE S Final Result Performing Organization Address City/[facility]/ZIP Co de Phone Number [facility] [address] [place] [address]. [address] * POC TCO2 (10/17/2025 8:22 PM EST) POC TCO2, Arterial 25 23 - 27 mmol/L 10/17/2025 8:24 PM EST [facility] Blood, Arterial 10/17/2025 8 :22 PM EST 10/17/2025 8:24 PM EST Vani Winkler MD POINT OF CARE TEST ORDERABLE S Final Result [facility] [address] * (ABNORMAL) POC O2 SAT (10/17/2025 8:22 PM EST) POC O2 Saturation, Arterial 99(H) 95 - 98 % 10/17/2025 8:24 PM EST [facility] Blood, Arterial 10/17/2025 8 :22 PM EST 10/17/2025 8:24 PM EST Vani Winkler MD POINT OF CARE TEST ORDERABLE S Final Result [facility] [address] [facility]. [address] * POC Base Excess (10/17/2025 8:22 PM EST) POC Base Excess, Arterial -1 -2 - 3 mmol/L 10/17/2025 8:24 PM EST [facility] Blood, Arterial 10/17/2025 8 :22 PM EST 10/17/2025 8:24 PM EST Vani Winkler MD POINT OF CARE TEST ORDERABLE S Final Result [facility] [address] [facility]. [address] * POC HCO3 (10/17/2025 8:22 PM EST) POC HCO3, Arterial 24 22 - 26 mmol/L 10/17/2025 8:24 PM EST [facility] Blood, Arterial 10/17/2025 8 :22 PM EST 10/17/2025 8:24 PM EST Vani Winkler MD POINT OF CARE TEST ORDERABLE S Final Result Performing Organization Address City/[facility]/ZIP Co de Phone Number [facility] [address] [facility]. [address] * (ABNORMAL) POC PO2 (10/17/2025 8:22 PM EST) POC pO2, Arterial 131(H) 80 - 100 mm Hg 10/17/2025 8:24 PM EST [facility] Blood, Arterial 10/17/2025 8 :22 PM EST 10/17/2025 8:24 PM EST us Vani Winkler MD POINT OF CARE TEST ORDERABLE S Final Result Performing Organization Address City/[facility] Co de Phone Number [facility] [address] [facility]. [address] * POC PCO2 (10/17/2025 8:22 PM EST) POC pCO2, Arterial 41 35 - 45 mm Hg 10/17/2025 8:24 PM EST [facility] Blood, Arterial 10/17/2025 8 :22 PM EST 10/17/2025 8:24 PM EST Vani Winkler MD POINT OF CARE TEST ORDERABLE S Final Result [facility] [address] [facility]. [address] * POC pH (10/17/2025 8:22 PM EST) POC pH, Arterial 7.37 7.35 - 7.45 10/17/2025 8:24 PM EST [facility] Blood, Arterial 10/17/2025 8 :22 PM EST 10/17/2025 8:24 PM EST us Vani Winkler MD POINT OF CARE TEST ORDERABLE S Final Result Performing Organization Address [facility] Co de Phone Number [facility] [address] * (ABNORMAL) POC INR (10/17/2025 8:21 PM EST) Prothrombin Time INR, POC 2.9(H) 0.8 - 1.4 10/18/2025 12:08 AM EST [facility] Comment: Test results may vary [...] ORDERABLE S Final Result Performing Organization Address [facility] Co de Phone Number [facility] [address] * Transfuse Fresh Frozen Plasma (10/17/2025 [...] Sample Type Arterial 10/17/2025 7:30 PM EST [facility] Blood, Arterial 10/17/2025 7 :26 PM EST 10/17/2025 7:30 PM EST Vani Winkler MD POINT OF CARE TEST ORDERABLE S Final Result Performing Organization Address City/[facility]/ZIP Co de Phone Number [facility] [address] [facility]. [address] * POC Anion Gap (10/17/2025 7:26 PM EST) POC Anion Gap, Arterial 11 3 - 16 mmol/L 10/17/2025 7:30 PM EST [facility] Blood, Arterial 10/17/2025 7 :26 PM EST 10/17/2025 7:30 PM EST Vani Winkler MD POINT OF CARE TEST ORDERABLE S Final Result Performing Organization Address City/[facility]/ZIP Co de Phone Number [facility] [address] [facility]. [address] * POC Chloride (10/17/2025 7:26 PM EST) Pathologist [facility] POC Chloride 109 98 - 110 mmol/L 10/17/2025 7:30 PM EST [facility] Blood, Arterial 10/17/2025 7 :26 PM EST 10/17/2025 7:30 PM EST Vani Winkler MD POINT OF CARE TEST ORDERABLE S Final Result [facility] [address] [facility]. [address] * (ABNORMAL) POC Hemoglobin (10/17/2025 7:26 PM EST) POC Hemoglobin 8.6(L) 14.0 - 18.0 g/dL 10/17/2025 7:30 PM EST [facility] Blood, Arterial 10/17/2025 7 :26 PM EST 10/17/2025 7:30 PM EST Vani Winkler MD POINT OF CARE TEST ORDERABLE S Final Result [facility] [address] [facility]. [address] * (ABNORMAL) POC hematocrit (10/17/2025 7:26 PM EST) POC Hematocrit 25.0(L) 40 - 52 % 10/17/2025 7:30 PM EST [facility] Blood, Arterial 10/17/2025 7 :26 PM EST 10/17/2025 7:30 PM EST Vani Winkler MD POINT OF CARE TEST ORDERABLE S Final Result Performing Organization Address [facility] Co de Phone Number [facility] [address] [facility] [facility]. [address] * POC Lactate (10/17/2025 7:26 PM EST) POC Lactate 2.16 0.50 - 2.20 mmol/L 10/17/2025 7:30 PM EST [facility] Blood, Arterial 10/17/2025 7 :26 PM EST 10/17/2025 7:30 PM EST Vani Winkler MD POINT OF CARE TEST ORDERABLE S Final Result Performing Organization Address City/[facility]/ZIP Co de Phone Number [facility] [address] [facility]. [address] * (ABNORMAL) POC Glucose (10/17/2025 7:26 PM EST) POC Glucose, Arterial 207(H) 70 - 100 mg/dL 10/17/2025 7:30 PM EST [facility] Blood, Arterial 10/17/2025 7 :26 PM EST 10/17/2025 7:30 PM EST Vani Winkler MD POINT OF CARE TEST ORDERABLE S Final Result [facility] [address] * (ABNORMAL) POC Ionized Calcium (10/17/2025 7:26 PM EST) POC Ionized Calcium 5.40(H) 4.50 - 5.30 mg/dL 10/17/2025 7:30 PM EST [facility] Blood, Arterial 10/17/2025 7:26 PM EST 10/17/2025 7:30 PM EST Vani Winkler MD POINT OF CARE TEST ORDERABLE S Final Result Performing Organization Address City/[facility]/ZIP Co de Phone Number [facility] [address] * POC Potassium (10/17/2025 7:26 PM EST) POC Potassium 3.9 3.5 - 5.3 mmol/L 10/17/2025 7:30 PM EST [facility] Blood, Arterial 10/17/2025 7 :26 PM EST 10/17/2025 7:30 PM EST Vani Winkler MD POINT OF CARE TEST ORDERABLE S Final Result Performing Organization Address City/[facility]/ZIP Co de Phone Number [facility] [address] * POC Sodium (10/17/2025 7:26 PM EST) POC Sodium 143 136 - 146 mmol/L 10/17/2025 7:30 PM EST [facility] Blood, Arterial 10/17/2025 7 :26 PM EST 10/17/2025 7:30 PM EST Vani Winkler MD POINT OF CARE TEST ORDERABLE S Final Result [facility] [address] * POC TCO2 (10/17/2025 7:26 PM EST) POC TCO2, Arterial 24 23 - 27 mmol/L 10/17/2025 7:30 PM EST [facility] Blood, Arterial 10/17/2025 7 :26 PM EST 10/17/2025 7:30 PM EST Vani Winkler MD POINT OF CARE TEST ORDERABLE S Final Result [facility] [address] [facility]. [address] * (ABNORMAL) POC O2 SAT (10/17/2025 7:26 PM EST) POC O2 Saturation, Arterial 99(H) 95 - 98 % 10/17/2025 7:30 PM EST [facility] Blood, Arterial 10/17/2025 7 :26 PM EST 10/17/2025 7:30 PM EST Vani Winkler MD POINT OF CARE TEST ORDERABLE S Final Result [facility] [address] [facility]. [address] * POC Base Excess (10/17/2025 7:26 PM EST) POC Base Excess, Arterial -2 -2 - 3 mmol/L 10/17/2025 7:30 PM EST [facility] Blood, Arterial 10/17/2025 7 :26 PM EST 10/17/2025 7:30 PM EST Vani Winkler MD POINT OF CARE TEST ORDERABLE S Final Result [facility] [address] [facility]. [address] * POC HCO3 (10/17/2025 7:26 PM EST) POC HCO3, Arterial 23 22 - 26 mmol/L 10/17/2025 7:30 PM EST [facility] Blood, Arterial 10/17/2025 7 :26 PM EST 10/17/2025 7:30 PM EST Vani Winkler MD POINT OF CARE TEST ORDERABLE S Final Result [facility] [address] [facility]. [address] * (ABNORMAL) POC PO2 (10/17/2025 7:26 PM EST) POC pO2, Arterial 156(H) 80 - 100 mm Hg 10/17/2025 7:30 PM EST [facility] Blood, Arterial 10/17/2025 7 :26 PM EST 10/17/2025 7:30 PM EST Vani Winkler MD POINT OF CARE TEST ORDERABLE S Final Result [facility] [address] [place] [facility]. [address] * POC PCO2 (10/17/2025 7:26 PM EST) POC pCO2, Arterial 40 35 - 45 mm Hg 10/17/2025 7:30 PM EST [facility] Blood, Arterial 10/17/2025 7 :26 PM EST 10/17/2025 7:30 PM EST Vani Winkler MD POINT OF CARE TEST ORDERABLE S Final Result [facility] [address] [facility]. [address] * POC pH (10/17/2025 7:26 PM EST) POC pH, Arterial 7.37 7.35 - 7.45 10/17/2025 7:30 PM EST [facility] Blood, Arterial 10/17/2025 7 :26 PM EST 10/17/2025 7:30 PM EST Vani Winkler MD POINT OF CARE TEST ORDERABLE S Final Result Performing Organization Address [facility] Co de Phone Number [facility] [address] [facility]. [address] * (ABNORMAL) POC INR (10/17/2025 7:25 PM EST) Prothrombin Time INR, POC 5.9(HH) 0.8 - 1.4 10/18/2025 12:07 AM EST [facility] Comment: Test results may vary [...] ORDERABLE S Final Result Performing Organization Address City/[facility] Co de Phone Number [facility] [address] * Transfuse Platelets (10/17/2025 7:03 PM EST) Slade Munoz MD NURSING TREATMENT ORDERABLES - B LOOD ADMIN Final Result * (ABNORMAL) TEG-Bypass/ECMO/Liver HN (Factor function, Platelet/Fibrin Clot Strength w/Clot Breakdown, Heparinase In All Channels) (10/17/2025 6:39 PM EST) Citrated Kaolin Reaction Time (TEGECMOLIVER) 7.1 4.6 - 9.1 minutes 10/17/2025 8:07 PM EST [facility] Citrated Kaolin W/Heparinase Reaction Time (TEGECMOLIVER) 2.5(L) 4.3 - 8.3 minutes 10/17/2025 8:07 PM EST [facility] Citrated Kaolin Maximum Amplitude (TEGECMOLIVER) 41.6(L) 52.0 - 69.0 mm 10/17/2025 8:07 PM EST [facility] Citrated Functional Fibrinogen W/Heparinase Maximum Amplitude(TEGEC MOLIVER) 20.9 15.0 - 34.0 mm 10/17/2025 8:07 PM EST [facility] Citrated Rapid Teg W/Heparinase Maximum Amplitude (TEGECMOLIVER) 30.9(L) 53.0 - 69.0 mm 10/17/2025 8:07 PM EST [facility] Citrated Kaolin w/Heparinase Percent Lysis (TEGECMOLIVER) 0.0 0.0 - 3.2 % 10/17/2025 8:07 PM [facility] Whole Blood (Citrate) 10/17/2025 6:39 PM EST 10/17/2025 6:45 PM EST us Shannan Salas MD LAB BLOOD ORDERABLES Final R esult [facility] [address] * (ABNORMAL) CBC (10/17/2025 6:39 PM EST) WBC 4.8 3.8 - 10.8 10E3/uL 10/17/2025 6:54 PM EST [facility] RBC 3.19(L) 4.20 - 5.80 10E6/uL 10/17/2025 6:54 PM [facility] Hemoglobin 10.3(L) 13.2 - 17.1 g/dL 10/17/2025 6:54 PM [facility] Hematocrit 30.2(L) 38.5 - 50.0 % 10/17/2025 6:54 PM [facility] MCV 94.8 80.0 - 100.0 fL 10/17/2025 6:54 PM [facility] MCH 32.3 27.0 - 33.0 pg 10/17/2025 6:54 PM [facility] MCHC 34.1 32.0 - 36.0 g/dL 10/17/2025 6:54 PM [facility] RDW 17.8(H) 11.0 - 15.0 % 10/17/2025 6:54 PM EST [facility] Platelets 47(L) 140 - 400 10E3/uL 10/17/2025 6:54 PM EST [facility] Comment:CNV MPV 7.7 7.5 - 11.5 fL 10/17/2025 6:54 PM EST [facility] Whole Blood 10/17/2025 6:39 PM EST 10/17/2025 6:45 PM EST Shannan Salas MD LAB BLOOD ORDERABLES Final R esult [facility] [address] * (ABNORMAL) Protime-INR (10/17/2025 6:39 PM EST) Protime 69.5(HH) 12.1 - 15.1 seconds 10/17/2025 7:30 PM EST [facility] Comment:The critical result was called to, and read back by, licensed caregiver ROSALIND HAWK RN, AT 1930 INR 7.5(HH) 0.9 - 1.1 10/17/2025 7:30 PM EST [facility] Comment: RECOMMENDED THERAPEUTIC RANGES USING [...] MD LAB BLOOD ORDERABLES Final R esult [facility] [address] * (ABNORMAL) Fibrinogen (10/17/2025 6:39 PM EST) Fibrinogen 159(L) 218 - 406 mg/dL 10/17/2025 7:04 PM EST [facility] Plasma 10/17/2025 6:39 PM EST 10/17/2025 6:45 PM EST Shannan Salas MD LAB BLOOD ORDERABLES Final R esult [facility] [address] [facility]. [address] * Transfuse Cryoprecipitate (10/17/2025 6:31 PM EST) Slade Munoz MD NURSING TREATMENT ORDERABLES - B LOOD ADMIN Final Result * POC Sample Type (10/17/2025 6:23 PM EST) POC Sample Type Arterial 10/17/2025 6:25 PM EST [facility] Blood, Arterial 10/17/2025 6 :23 PM EST 10/17/2025 6:25 PM EST Vani Winkler MD POINT OF CARE TEST ORDERABLE S Final Result Performing Organization Address City/[facility]/ZIP Co de Phone Number [facility] [address] [facility]. [address] * POC Anion Gap (10/17/2025 6:23 PM EST) POC Anion Gap, Arterial 13 3 - 16 mmol/L 10/17/2025 6:25 PM EST [facility] Blood, Arterial 10/17/2025 6 :23 PM EST 10/17/2025 6:25 PM EST us Vani Winkler MD POINT OF CARE TEST ORDERABLE S Final Result [facility] [address] * POC Chloride (10/17/2025 6:23 PM EST) POC Chloride 110 98 - 110 mmol/L 10/17/2025 6:25 PM EST [facility] Blood, Arterial 10/17/2025 6 :23 PM EST 10/17/2025 6:25 PM EST Vani Winkler MD POINT OF CARE TEST ORDERABLE S Final Result [facility] [address] * (ABNORMAL) POC Hemoglobin (10/17/2025 6:23 PM EST) POC Hemoglobin 9.8(L) 14.0 - 18.0 g/dL 10/17/2025 6:25 PM EST [facility] Blood, Arterial 10/17/2025 6 :23 PM EST 10/17/2025 6:25 PM EST Vani Winkler MD POINT OF CARE TEST ORDERABLE S Final Result Performing Organization Address City/[facility]/ZIP Co de Phone Number [facility] [address] [place] [facility]. [address] * (ABNORMAL) POC hematocrit (10/17/2025 6:23 PM EST) Pathologist [facility] POC Hematocrit 29.0(L) 40 - 52 % 10/17/2025 6:25 PM EST [facility] Blood, Arterial 10/17/2025 6 :23 PM EST 10/17/2025 6:25 PM EST Vani Winkler MD POINT OF CARE TEST ORDERABLE S Final Result [facility] [address] [facility]. [address] * (ABNORMAL) POC Lactate (10/17/2025 6:23 PM EST) POC Lactate 3.26(H) 0.50 - 2.20 mmol/L 10/17/2025 6:25 PM EST [facility] Blood, Arterial 10/17/2025 6 :23 PM EST 10/17/2025 6:25 PM EST Vani Winkler MD POINT OF CARE TEST ORDERABLE S Final Result Performing Organization Address City/[facility]/ZIP Co de Phone Number [facility] [address] [facility]. [address] * (ABNORMAL) POC Glucose (10/17/2025 6:23 PM EST) POC Glucose, Arterial 170(H) 70 - 100 mg/dL 10/17/2025 6:25 PM EST [facility] Blood, Arterial 10/17/2025 6 :23 PM EST 10/17/2025 6:25 PM EST Vani Winkler MD POINT OF CARE TEST ORDERABLE S Final Result Performing Organization Address [facility] Co de Phone Number [facility] [address] [place] [facility]. [address] * (ABNORMAL) POC Ionized Calcium (10/17/2025 6:23 PM EST) POC Ionized Calcium 6.00(H) 4.50 - 5.30 mg/dL 10/17/2025 6:25 PM EST [facility] Blood, Arterial 10/17/2025 6 :23 PM EST 10/17/2025 6:25 PM EST Vani Winkler MD POINT OF CARE TEST ORDERABLE S Final Result Performing Organization Address City/[facility] Co de Phone Number [facility] [address] [facility]. [address] * POC Potassium (10/17/2025 6:23 PM EST) POC Potassium 3.8 3.5 - 5.3 mmol/L 10/17/2025 6:25 PM EST [facility] Blood, Arterial 10/17/2025 6 :23 PM EST 10/17/2025 6:25 PM EST Vani Winkler MD POINT OF CARE TEST ORDERABLE S Final Result Performing Organization Address City/State/[facility] Co de Phone Number [facility] [address] * POC Sodium (10/17/2025 6:23 PM EST) POC Sodium 142 136 - 146 mmol/L 10/17/2025 6:25 PM EST [facility] Blood, Arterial 10/17/2025 6 :23 PM EST 10/17/2025 6:25 PM EST Vani Winkler MD POINT OF CARE TEST ORDERABLE S Final Result Performing Organization Address [facility] Co de Phone Number [facility] [address] [facility]. [address] * (ABNORMAL) POC TCO2 (10/17/2025 6:23 PM EST) POC TCO2, Arterial 20(L) 23 - 27 mmol/L 10/17/2025 6:25 PM EST [facility] Blood, Arterial 10/17/2025 6 :23 PM EST 10/17/2025 6:25 PM EST Vani Winkler MD POINT OF CARE TEST ORDERABLE S Final Result Performing Organization Address City/[facility] Co de Phone Number [facility] [address] * POC O2 SAT (10/17/2025 6:23 PM EST) POC O2 Saturation, Arterial 95 95 - 98 % 10/17/2025 6:25 PM EST [facility] Blood, Arterial 10/17/2025 6 :23 PM EST 10/17/2025 6:25 PM EST Vani Winkler MD POINT OF CARE TEST ORDERABLE S Final Result [facility] [address] * (ABNORMAL) POC Base Excess (10/17/2025 6:23 PM EST) POC Base Excess, Arterial -6(L) -2 - 3 mmol/L 10/17/2025 6:25 PM EST [facility] Blood, Arterial 10/17/2025 6 :23 PM EST 10/17/2025 6:25 PM EST Vani Winkler MD POINT OF CARE TEST ORDERABLE S Final Result Performing Organization Address [facility] Co de Phone Number [facility] [address] * (ABNORMAL) POC HCO3 (10/17/2025 6:23 PM EST) POC HCO3, Arterial 19(L) 22 - 26 mmol/L 10/17/2025 6:25 PM EST [facility] Blood, Arterial 10/17/2025 6 :23 PM EST 10/17/2025 6:25 PM EST Vani Winkler MD POINT OF CARE TEST ORDERABLE S Final Result Performing Organization Address [facility] Co de Phone Number [facility] [address] * POC PO2 (10/17/2025 6:23 PM EST) POC pO2, Arterial 80 80 - 100 mm Hg 10/17/2025 6:25 PM EST [facility] Blood, Arterial 10/17/2025 6 :23 PM EST 10/17/2025 6:25 PM EST Vani Winkler MD POINT OF CARE TEST ORDERABLE S Final Result Performing Organization Address City/[facility]/ZIP Co de Phone Number [facility] [address] * POC PCO2 (10/17/2025 6:23 PM EST) POC pCO2, Arterial 36 35 - 45 mm Hg 10/17/2025 6:25 PM EST [facility] Blood, Arterial 10/17/2025 6 :23 PM EST 10/17/2025 6:25 PM EST Vani Winkler MD POINT OF CARE TEST ORDERABLE S Final Result [facility] [address] [facility]. [address] * (ABNORMAL) POC pH (10/17/2025 6:23 PM EST) POC pH, Arterial 7.33(L) 7.35 - 7.45 10/17/2025 6:25 PM EST [facility] Blood, Arterial 10/17/2025 6 :23 PM EST 10/17/2025 6:25 PM EST Result [facility] Vani Winkler MD POINT OF CARE TEST ORDERABLE S Final Result Performing Organization Address City/[facility] Co de Phone Number [facility] [address] [facility]. [address] * (ABNORMAL) POC INR (10/17/2025 6:21 PM EST) Prothrombin Time INR, POC 6.4(HH) 0.8 - 1.4 10/18/2025 12:07 AM EST [facility] Comment: Test results may vary [...] ORDERABLE S Final Result Performing Organization Address [facility] Co de Phone Number [facility] [address] [facility]. [address] * Transfuse Cryoprecipitate (10/17/2025 6:18 PM EST) Slade Munoz MD NURSING TREATMENT ORDERABLES - B LOOD ADMIN Final Result * POC Sample Type (10/17/2025 5:42 PM EST) POC Sample Type Arterial 10/17/2025 6:21 PM EST [facility] Blood, Arterial 10/17/2025 5 :42 PM EST 10/17/2025 6:21 PM EST Vani Winkler MD POINT OF CARE TEST ORDERABLE S Final Result Performing Organization Address [facility] Co de Phone Number [facility] [address] [facility]. [address] * POC Anion Gap (10/17/2025 5:42 PM EST) POC Anion Gap, Arterial 10 3 - 16 mmol/L 10/17/2025 6:21 PM EST [facility] Blood, Arterial 10/17/2025 5 :42 PM EST 10/17/2025 6:21 PM EST Vani Winkler MD POINT OF CARE TEST ORDERABLE S Final Result Performing Organization Address City/[facility] Co de Phone Number [facility] [address] [place] [address]. [address] * (ABNORMAL) POC Chloride (10/17/2025 5:42 PM EST) POC Chloride 111(H) 98 - 110 mmol/L 10/17/2025 6:21 PM EST [facility] Blood, Arterial 10/17/2025 5 :42 PM EST 10/17/2025 6:21 PM EST Vani Winkler MD POINT OF CARE TEST ORDERABLE S Final Result [facility] [address] * (ABNORMAL) POC Hemoglobin (10/17/2025 5:42 PM EST) POC Hemoglobin 7.9(L) 14.0 - 18.0 g/dL 10/17/2025 6:21 PM EST [facility] Blood, Arterial 10/17/2025 5 :42 PM EST 10/17/2025 6:21 PM EST Vani Winkler MD POINT OF CARE TEST ORDERABLE S Final Result Performing Organization Address [facility]/ZIP Co de Phone Number [facility] [address] [facility]. [address] * (ABNORMAL) POC hematocrit (10/17/2025 5:42 PM EST) POC Hematocrit 23.0(L) 40 - 52 % 10/17/2025 6:21 PM EST [facility] Blood, Arterial 10/17/2025 5 :42 PM EST 10/17/2025 6:21 PM EST Vani Winkler MD POINT OF CARE TEST ORDERABLE S Final Result Performing Organization Address [facility]/ZIP Co de Phone Number [facility] [address] [facility]. [address] * (ABNORMAL) POC Lactate (10/17/2025 5:42 PM EST) POC Lactate 2.53(H) 0.50 - 2.20 mmol/L 10/17/2025 6:21 PM EST [facility] Blood, Arterial 10/17/2025 5 :42 PM EST 10/17/2025 6:21 PM EST Vani Winkler MD POINT OF CARE TEST ORDERABLE S Final Result [facility] [address] * POC Glucose (10/17/2025 5:42 PM EST) POC Glucose, Arterial 77 70 - 100 mg/dL 10/17/2025 6:21 PM EST [facility] Blood, Arterial 10/17/2025 5 :42 PM EST 10/17/2025 6:21 PM EST Vani Winkler MD POINT OF CARE TEST ORDERABLE S Final Result [facility] [address] * (ABNORMAL) POC Ionized Calcium (10/17/2025 5:42 PM EST) POC Ionized Calcium 5.90(H) 4.50 - 5.30 mg/dL 10/17/2025 6:21 PM EST [facility] Blood, Arterial 10/17/2025 5 :42 PM EST 10/17/2025 6:21 PM EST Vani Winkler MD POINT OF CARE TEST ORDERABLE S Final Result [facility] [address] * POC Potassium (10/17/2025 5:42 PM EST) POC Potassium 3.7 3.5 - 5.3 mmol/L 10/17/2025 6:21 PM EST [facility] Blood, Arterial 10/17/2025 5 :42 PM EST 10/17/2025 6:21 PM EST Vani Winkler MD POINT OF CARE TEST ORDERABLE S Final Result [facility] [address] * POC Sodium (10/17/2025 5:42 PM EST) POC Sodium 141 136 - 146 mmol/L 10/17/2025 6:21 PM EST [facility] Blood, Arterial 10/17/2025 5 :42 PM EST 10/17/2025 6:21 PM EST Vani Winkler MD POINT OF CARE TEST ORDERABLE S Final Result [facility] [address] [facility]. [address] * (ABNORMAL) POC TCO2 (10/17/2025 5:42 PM EST) POC TCO2, Arterial 21(L) 23 - 27 mmol/L 10/17/2025 6:21 PM EST [facility] Blood, Arterial 10/17/2025 5 :42 PM EST 10/17/2025 6:21 PM EST us Vani Winkler MD POINT OF CARE TEST ORDERABLE S Final Result [facility] [address] [facility]. [address] * (ABNORMAL) POC O2 SAT (10/17/2025 5:42 PM EST) POC O2 Saturation, Arterial 99(H) 95 - 98 % 10/17/2025 6:21 PM EST [facility] Blood, Arterial 10/17/2025 5 :42 PM EST 10/17/2025 6:21 PM EST Vani Winkler MD POINT OF CARE TEST ORDERABLE S Final Result [facility] [address] [facility]. [address] * (ABNORMAL) POC Base Excess (10/17/2025 5:42 PM EST) POC Base Excess, Arterial -4(L) -2 - 3 mmol/L 10/17/2025 6:21 PM EST [facility] Blood, Arterial 10/17/2025 5 :42 PM EST 10/17/2025 6:21 PM EST Vani Winkler MD POINT OF CARE TEST ORDERABLE S Final Result [facility] [address] [facility]. [address] * (ABNORMAL) POC HCO3 (10/17/2025 5:42 PM EST) POC HCO3, Arterial 20(L) 22 - 26 mmol/L 10/17/2025 6:21 PM EST [facility] Blood, Arterial 10/17/2025 5 :42 PM EST 10/17/2025 6:21 PM EST Vani Winkler MD POINT OF CARE TEST ORDERABLE S Final Result Performing Organization Address City/[facility]/ZIP Co de Phone Number [facility] [address] [facility]. [address] * (ABNORMAL) POC PO2 (10/17/2025 5:42 PM EST) POC pO2, Arterial 159(H) 80 - 100 mm Hg 10/17/2025 6:21 PM EST [facility] Blood, Arterial 10/17/2025 5 :42 PM EST 10/17/2025 6:21 PM EST Vani Winkler MD POINT OF CARE TEST ORDERABLE S Final Result [facility] [address] [facility]. [address] * (ABNORMAL) POC PCO2 (10/17/2025 5:42 PM EST) POC pCO2, Arterial 33(L) 35 - 45 mm Hg 10/17/2025 6:21 PM EST [facility] Blood, Arterial 10/17/2025 5 :42 PM EST 10/17/2025 6:21 PM EST Vani Winkler MD POINT OF CARE TEST ORDERABLE S Final Result [facility] [address] * POC pH (10/17/2025 5:42 PM EST) POC pH, Arterial 7.40 7.35 - 7.45 10/17/2025 6:21 PM EST [facility] Blood, Arterial 10/17/2025 5 :42 PM EST 10/17/2025 6:21 PM EST Vani Winkler MD POINT OF CARE TEST ORDERABLE S Final Result Performing Organization Address [facility] de Phone Number [facility] [address] [facility]. [address] * (ABNORMAL) POC INR (10/17/2025 5:37 PM EST) Prothrombin Time INR, POC 3.6(H) 0.8 - 1.4 10/18/2025 12:07 AM EST [facility] Comment: Test results may vary [...] ORDERABLE S Final Result Performing Organization Address City/[facility]/ZIP Co de Phone Number [facility] [address] * Transfuse RBC (10/17/2025 5:34 PM [...] [facility] - 10/17/2025 12:00 AM EST CASE: [id number] PATIENT: DAVID SERRANO Clinical History: transplant liver Pre-Operative Diagnosis: end stage liver disease Post-Operative Diagnosis: same Specimen(s) Submitted: A. Sycuan liver and gallbladder; B. Right lobe post perfusion liver bx; C. Left lobe post perfusion liver bx CPT Code(s): 53594 X 2; 51416 X 1; 52040 X 7 Additional Information: FINAL DIAGNOSIS: Liver and gall bladder, [place], total hepatectomy with cholecystectomy: Liver: -Cirrhosis, mild [...] with the patient's name David Serrano and [place] liver and gallbladder is a 782 gram, [...] no discrete masses or lesions are identified. Game Tester sections are submitted in cassettes [id number] as follows: A1: Game Tester gallbladder. A2: Hilar margins, en face. A3-A5: Game [employer]ester right lobe. A6-A8: Game Tester left lobe with liver written on the side of the cassette in A8. (LAISHA Miranda/) B. Received in formalin, labeled with the patient's name David Serrano and right lobe post perfusion liver biopsy is a 1.6 cm in length x 0.1 cm in diameter red-brown tissue core, which is entirely submitted between blue biopsy sponges in cassette [id number] B1. (LAISHA Miranda/) C. Received in formalin, labeled with the patient's name David Serrano and left lobe post perfusion liver biopsy is a 1.3 cm in length x 0.1 cm in diameter red-brown fragmented tissue core, which is entirely submitted between blue biopsy sponges in cassette [id number] C1. (LAISHA Miranda/vc) Microscopic Description: Sixteen HE [...] Pathologist signing this report is located at [facility], [address] [place] [address], [facility], , CLIA ID: [id number] us Leticia Lomeli MD PATHOLOGY/CYTOLOGY ORDERABLES Final Result Performing Organization Address [facility] Co de Phone Number [facility] * Transfuse RBC (10/17/2025 5:19 PM EST) us Slade Munoz MD NURSING TREATMENT ORDERABLES - B LOOD ADMIN Final Result * POC Sample Type (10/17/2025 5:00 PM EST) POC Sample Type Arterial 10/17/2025 5:03 PM EST [facility] Blood, Arterial 10/17/2025 5 :00 PM EST 10/17/2025 5:03 PM EST Vani Winkler MD POINT OF CARE TEST ORDERABLE S Final Result Performing Organization Address [facility] Co de Phone Number [facility] [facility] [address] * POC Anion Gap (10/17/2025 5:00 PM EST) Pathologist [facility] POC Anion Gap, Arterial 11 3 - 16 mmol/L 10/17/2025 5:03 PM EST [facility] Blood, Arterial 10/17/2025 5 :00 PM EST 10/17/2025 5:03 PM EST Vani Winkler MD POINT OF CARE TEST ORDERABLE S Final Result Performing Organization Address [facility] Co de Phone Number [facility] [address] * POC Chloride (10/17/2025 5:00 PM EST) POC Chloride 109 98 - 110 mmol/L 10/17/2025 5:03 PM EST [facility] Blood, Arterial 10/17/2025 5 :00 PM EST 10/17/2025 5:03 PM EST Vani Winkler MD POINT OF CARE TEST ORDERABLE S Final Result [facility] [address] [facility]. [address] * (ABNORMAL) POC Hemoglobin (10/17/2025 5:00 PM EST) POC Hemoglobin 7.9(L) 14.0 - 18.0 g/dL 10/17/2025 5:03 PM EST [facility] Blood, Arterial 10/17/2025 5 :00 PM EST 10/17/2025 5:03 PM EST us Vani Winkler MD POINT OF CARE TEST ORDERABLE S Final Result Performing Organization Address City/[facility]/ZIP Co de Phone Number [facility] [address] [facility]. [address] * (ABNORMAL) POC hematocrit (10/17/2025 5:00 PM EST) POC Hematocrit 23.0(L) 40 - 52 % 10/17/2025 5:03 PM EST [facility] Blood, Arterial 10/17/2025 5 :00 PM EST 10/17/2025 5:03 PM EST us Vani Winkler MD POINT OF CARE TEST ORDERABLE S Final Result [facility] [address] [place] [facility]. [address] * (ABNORMAL) POC Lactate (10/17/2025 5:00 PM EST) POC Lactate 2.68(H) 0.50 - 2.20 mmol/L 10/17/2025 5:03 PM EST [facility] Blood, Arterial 10/17/2025 5 :00 PM EST 10/17/2025 5:03 PM EST Vani Winkler MD POINT OF CARE TEST ORDERABLE S Final Result [facility] [address] * POC Glucose (10/17/2025 5:00 PM EST) POC Glucose, Arterial 96 70 - 100 mg/dL 10/17/2025 5:03 PM EST [facility] Blood, Arterial 10/17/2025 5 :00 PM EST 10/17/2025 5:03 PM EST Vani Winkler MD POINT OF CARE TEST ORDERABLE S Final Result Performing Organization Address City/[facility]/ZIP Co de Phone Number [facility] [address] * POC Ionized Calcium (10/17/2025 5:00 PM EST) POC Ionized Calcium 4.60 4.50 - 5.30 mg/dL 10/17/2025 5:03 PM EST [facility] Blood, Arterial 10/17/2025 5 :00 PM EST 10/17/2025 5:03 PM EST Vani Winkler MD POINT OF CARE TEST ORDERABLE S Final Result Performing Organization Address City/[facility]/ZIP Co de Phone Number [facility] [address] [facility]. [address] * POC Potassium (10/17/2025 5:00 PM EST) POC Potassium 3.7 3.5 - 5.3 mmol/L 10/17/2025 5:03 PM EST [facility] Blood, Arterial 10/17/2025 5 :00 PM EST 10/17/2025 5:03 PM EST Vani Winkler MD POINT OF CARE TEST ORDERABLE S Final Result [facility] [address] [facility]. [address] * POC Sodium (10/17/2025 5:00 PM EST) POC Sodium 143 136 - 146 mmol/L 10/17/2025 5:03 PM EST [facility] Blood, Arterial 10/17/2025 5 :00 PM EST 10/17/2025 5:03 PM EST Vani Winkler MD POINT OF CARE TEST ORDERABLE S Final Result [facility] [address] [facility]. [address] * POC TCO2 (10/17/2025 5:00 PM EST) Pathologist [facility] POC TCO2, Arterial 24 23 - 27 mmol/L 10/17/2025 5:03 PM EST [facility] Blood, Arterial 10/17/2025 5 :00 PM EST 10/17/2025 5:03 PM EST Vani Winkelr MD POINT OF CARE TEST ORDERABLE S Final Result Performing Organization Address City/[facility]/ZIP Co de Phone Number [facility] [address] [facility]. [address] * (ABNORMAL) POC O2 SAT (10/17/2025 5:00 PM EST) Pathologist [facility] POC O2 Saturation, Arterial 100(H) 95 - 98 % 10/17/2025 5:03 PM EST [facility] Blood, Arterial 10/17/2025 5 :00 PM EST 10/17/2025 5:03 PM EST Vani Winkler MD POINT OF CARE TEST ORDERABLE S Final Result Performing Organization Address City/[facility]/ZIP Co de Phone Number [facility] [address] [facility]. [address] * POC Base Excess (10/17/2025 5:00 PM EST) POC Base Excess, Arterial -2 -2 - 3 mmol/L 10/17/2025 5:03 PM EST [facility] Blood, Arterial 10/17/2025 5 :00 PM EST 10/17/2025 5:03 PM EST Vani Winkler MD POINT OF CARE TEST ORDERABLE S Final Result [facility] [address] [place] [address]. [address] * POC HCO3 (10/17/2025 5:00 PM EST) POC HCO3, Arterial 23 22 - 26 mmol/L 10/17/2025 5:03 PM EST [facility] Blood, Arterial 10/17/2025 5 :00 PM EST 10/17/2025 5:03 PM EST Vani Winkler MD POINT OF CARE TEST ORDERABLE S Final Result [facility] [address] [place] [facility]. [address] * (ABNORMAL) POC PO2 (10/17/2025 5:00 PM EST) POC pO2, Arterial 200(H) 80 - 100 mm Hg 10/17/2025 5:03 PM EST [facility] Blood, Arterial 10/17/2025 5 :00 PM EST 10/17/2025 5:03 PM EST Vani Winkler MD POINT OF CARE TEST ORDERABLE S Final Result [facility] [address] [facility]. [address] * POC PCO2 (10/17/2025 5:00 PM EST) POC pCO2, Arterial 38 35 - 45 mm Hg 10/17/2025 5:03 PM EST [facility] Blood, Arterial 10/17/2025 5 :00 PM EST 10/17/2025 5:03 PM EST Vani Winkler MD POINT OF CARE TEST ORDERABLE S Final Result [facility] [address] [facility]. [address] * POC pH (10/17/2025 5:00 PM EST) POC pH, Arterial 7.39 7.35 - 7.45 10/17/2025 5:03 PM EST [facility] Blood, Arterial 10/17/2025 5 :00 PM EST 10/17/2025 5:03 PM EST Vani Winkler MD POINT OF CARE TEST ORDERABLE S Final Result Performing Organization Address [facility] de Phone Number [facility] [address] [facility]. [address] * (ABNORMAL) POC INR (10/17/2025 4:59 PM EST) Prothrombin Time INR, POC 1.7(H) 0.8 - 1.4 10/18/2025 12:07 AM EST [facility] Comment: Test results may vary [...] ORDERABLE S Final Result Performing Organization Address City/[facility] Co de Phone Number [facility] [address] [facility]. [address] * (ABNORMAL) TEG-Bypass/ECMO/Liver HN (Factor function, Platelet/Fibrin Clot Strength w/Clot Breakdown, Heparinase In All Channels) (10/17/2025 4:56 PM EST) Citrated Kaolin Reaction Time (TEGECMOLIVER) 4.7 4.6 - 9.1 minutes 10/17/2025 6:20 PM EST [facility] Citrated Kaolin W/Heparinase Reaction Time (TEGECMOLIVER) 4.7 4.3 - 8.3 minutes 10/17/2025 6:20 PM EST [facility] Citrated Kaolin Maximum Amplitude (TEGECMOLIVER) 42.4(L) 52.0 - 69.0 mm 10/17/2025 6:20 PM EST [facility] Citrated Functional Fibrinogen W/Heparinase Maximum Amplitude(TEGEC MOLIVER) 6.6(L) 15.0 - 34.0 mm 10/17/2025 6:20 PM EST [facility] Citrated Rapid Teg W/Heparinase Maximum Amplitude (TEGECMOLIVER) 39.8(L) 53.0 - 69.0 mm 10/17/2025 6:20 PM EST [facility] Citrated Kaolin w/Heparinase Percent Lysis (TEGECMOLIVER) 0.0 0.0 - 3.2 % 10/17/2025 6:20 PM EST [facility] Whole Blood (Citrate) 10/17/2025 4:56 PM EST 10/17/2025 5:06 PM EST us Slade Munoz MD LAB BLOOD ORDERABLES Final Resul t Performing Organization Address City/State/[facility] Co de Phone Number [facility] [address] * (ABNORMAL) Protime-INR (10/17/2025 4:56 PM EST) Protime 26.4(H) 12.1 - 15.1 seconds 10/17/2025 5:31 PM EST [facility] INR 2.3(H) 0.9 - 1.1 10/17/2025 5:31 PM EST [facility] Comment: RECOMMENDED THERAPEUTIC RANGES USING INR : Stable oral anticoagulant therapy: 2.0 - 3.0 Mechanical prosthetic heart valve: 2.5 - 3.5 Recurrent acute myocardial infarction: 2.5 - 3.5 Plasma 10/17/2025 4:56 PM EST 10/17/2025 5:06 PM EST us Slade Munoz MD LAB BLOOD ORDERABLES Final Resul t [facility] [address] [facility]. [address] * (ABNORMAL) Fibrinogen (10/17/2025 4:56 PM EST) Fibrinogen 137(L) 218 - 406 mg/dL 10/17/2025 5:36 PM EST [facility] Plasma 10/17/2025 4:56 PM EST 10/17/2025 5:06 PM EST Slade Munoz MD LAB BLOOD ORDERABLES Final Resul t Performing Organization Address City/[facility]/ZIP Co de Phone Number [facility] [address] [facility]. [address] * (ABNORMAL) CBC (10/17/2025 4:56 PM EST) WBC 3.9 3.8 - 10.8 10E3/uL 10/17/2025 8:25 PM EST [facility] RBC 2.67(L) 4.20 - 5.80 10E6/uL 10/17/2025 8:25 PM EST [facility] Hemoglobin 9.2(L) 13.2 - 17.1 g/dL 10/17/2025 8:25 PM EST [facility] Hematocrit 26.1(L) 38.5 - 50.0 % 10/17/2025 8:25 PM EST [facility] MCV 98.0 80.0 - 100.0 fL 10/17/2025 8:25 PM EST [facility] MCH 34.5(H) 27.0 - 33.0 pg 10/17/2025 8:25 PM EST [facility] MCHC 35.3 32.0 - 36.0 g/dL 10/17/2025 8:25 PM EST [facility] RDW 17.9(H) 11.0 - 15.0 % 10/17/2025 8:25 PM EST [facility] Platelets 64(L) 140 - 400 10E3/uL 10/17/2025 8:25 PM EST [facility] MPV 8.2 7.5 - 11.5 fL 10/17/2025 8:25 PM EST [facility] Whole Blood 10/17/2025 4:56 PM EST 10/17/2025 5:19 PM EST Slade Munoz MD LAB BLOOD ORDERABLES Final Resul t [facility] [address] [facility]. [address] * (ABNORMAL) APTT, No Anticoagulant (10/17/2025 4:56 PM EST) aPTT 55.7(H) 25.5 - 35.0 seconds 10/17/2025 5:32 PM EST [facility] Plasma 10/17/2025 4:56 PM EST 10/17/2025 5:06 PM EST Slade Munoz MD LAB BLOOD ORDERABLES Final Resul t Performing Organization Address [facility] Co de Phone Number [facility] [address] [facility]. [address] * Transfuse Cryoprecipitate (10/17/2025 4:18 PM [...] Sample Type Arterial 10/17/2025 4:01 PM EST [facility] Blood, Arterial 10/17/2025 3 :59 PM EST 10/17/2025 4:01 PM EST Vani Winkler MD POINT OF CARE TEST ORDERABLE S Final Result [facility] [address] [facility]. [address] * POC Anion Gap (10/17/2025 3:59 PM EST) POC Anion Gap, Arterial 10 3 - 16 mmol/L 10/17/2025 4:01 PM EST [facility] Blood, Arterial 10/17/2025 3 :59 PM EST 10/17/2025 4:01 PM EST Vani Winkler MD POINT OF CARE TEST ORDERABLE S Final Result [facility] [address] * (ABNORMAL) POC Chloride (10/17/2025 3:59 PM EST) POC Chloride 111(H) 98 - 110 mmol/L 10/17/2025 4:01 PM EST [facility] Blood, Arterial 10/17/2025 3 :59 PM EST 10/17/2025 4:01 PM EST Vani Winkler MD POINT OF CARE TEST ORDERABLE S Final Result [facility] [address] * (ABNORMAL) POC Hemoglobin (10/17/2025 3:59 PM EST) Pathologist [facility] POC Hemoglobin 9.7(L) 14.0 - 18.0 g/dL 10/17/2025 4:01 PM EST [facility] Blood, Arterial 10/17/2025 3 :59 PM EST 10/17/2025 4:01 PM EST Vani Winkler MD POINT OF CARE TEST ORDERABLE S Final Result [facility] [address] [facility]. [address] * (ABNORMAL) POC hematocrit (10/17/2025 3:59 PM EST) [facility] POC Hematocrit 29.0(L) 40 - 52 % 10/17/2025 4:01 PM EST [facility] Blood, Arterial 10/17/2025 3 :59 PM EST 10/17/2025 4:01 PM EST Vani Winkler MD POINT OF CARE TEST ORDERABLE S Final Result Performing Organization Address City/[facility]/ZIP Co de Phone Number [facility] [address] [facility]. [address] * POC Lactate (10/17/2025 3:59 PM EST) [facility] POC Lactate 1.77 0.50 - 2.20 mmol/L 10/17/2025 4:01 PM EST [facility] Blood, Arterial 10/17/2025 3 :59 PM EST 10/17/2025 4:01 PM EST Vani Winkler MD POINT OF CARE TEST ORDERABLE S Final Result [facility] [address] [facility]. [address] * POC Glucose (10/17/2025 3:59 PM EST) POC Glucose, Arterial 81 70 - 100 mg/dL 10/17/2025 4:01 PM EST [facility] Blood, Arterial 10/17/2025 3 :59 PM EST 10/17/2025 4:01 PM EST Vani Winkler MD POINT OF CARE TEST ORDERABLE S Final Result [facility] [address] [facility]. [address] * POC Ionized Calcium (10/17/2025 3:59 PM EST) POC Ionized Calcium 4.90 4.50 - 5.30 mg/dL 10/17/2025 4:01 PM EST [facility] Blood, Arterial 10/17/2025 3 :59 PM EST 10/17/2025 4:01 PM EST Vani Winkler MD POINT OF CARE TEST ORDERABLE S Final Result [facility] [address] [facility]. [address] * POC Potassium (10/17/2025 3:59 PM EST) POC Potassium 3.7 3.5 - 5.3 mmol/L 10/17/2025 4:01 PM EST [facility] Blood, Arterial 10/17/2025 3 :59 PM EST 10/17/2025 4:01 PM EST Vani Winkler MD POINT OF CARE TEST ORDERABLE S Final Result [facility] [address] [place] [address]. [address] * POC Sodium (10/17/2025 3:59 PM EST) POC Sodium 145 136 - 146 mmol/L 10/17/2025 4:01 PM EST [facility] Blood, Arterial 10/17/2025 3 :59 PM EST 10/17/2025 4:01 PM EST Vani Winkler MD POINT OF CARE TEST ORDERABLE S Final Result [facility] [address] * POC TCO2 (10/17/2025 3:59 PM EST) POC TCO2, Arterial 26 23 - 27 mmol/L 10/17/2025 4:01 PM EST [facility] Blood, Arterial 10/17/2025 3 :59 PM EST 10/17/2025 4:01 PM EST Vani Winkler MD POINT OF CARE TEST ORDERABLE S Final Result Performing Organization Address City/[facility]/ZIP Co de Phone Number [facility] [address] [facility]. [address] * (ABNORMAL) POC O2 SAT (10/17/2025 3:59 PM EST) POC O2 Saturation, Arterial 100(H) 95 - 98 % 10/17/2025 4:01 PM EST [facility] Blood, Arterial 10/17/2025 3 :59 PM EST 10/17/2025 4:01 PM EST Vani Winkler MD POINT OF CARE TEST ORDERABLE S Final Result [facility] [address] * POC Base Excess (10/17/2025 3:59 PM EST) POC Base Excess, Arterial -1 -2 - 3 mmol/L 10/17/2025 4:01 PM EST [facility] Blood, Arterial 10/17/2025 3 :59 PM EST 10/17/2025 4:01 PM EST us Vani Winkler MD POINT OF CARE TEST ORDERABLE S Final Result [facility] [address] * POC HCO3 (10/17/2025 3:59 PM EST) POC HCO3, Arterial 24 22 - 26 mmol/L 10/17/2025 4:01 PM EST [facility] Blood, Arterial 10/17/2025 3 :59 PM EST 10/17/2025 4:01 PM EST us Vani Winkler MD POINT OF CARE TEST ORDERABLE S Final Result Performing Organization Address [facility]/ZIP Co de Phone Number [facility] [address] * (ABNORMAL) POC PO2 (10/17/2025 3:59 PM EST) POC pO2, Arterial 213(H) 80 - 100 mm Hg 10/17/2025 4:01 PM EST [facility] Blood, Arterial 10/17/2025 3 :59 PM EST 10/17/2025 4:01 PM EST us Vani Winkler MD POINT OF CARE TEST ORDERABLE S Final Result Performing Organization Address City/[facility]/ZIP Co de Phone Number [facility] [address] * POC PCO2 (10/17/2025 3:59 PM EST) POC pCO2, Arterial 45 35 - 45 mm Hg 10/17/2025 4:01 PM EST [facility] Blood, Arterial 10/17/2025 3 :59 PM EST 10/17/2025 4:01 PM EST us Vani Winkler MD POINT OF CARE TEST ORDERABLE S Final Result [facility] [address] * (ABNORMAL) POC pH (10/17/2025 3:59 PM EST) POC pH, Arterial 7.34(L) 7.35 - 7.45 10/17/2025 4:01 PM EST [facility] Blood, Arterial 10/17/2025 3 :59 PM EST 10/17/2025 4:01 PM EST Result [facility] Vani Winkler MD POINT OF CARE TEST ORDERABLE S Final Result Performing Organization Address City/[facility]/ZIP Co de Phone Number [facility] [address] [facility]. [address] * (ABNORMAL) POC INR (10/17/2025 3:58 PM EST) Prothrombin Time INR, POC 2.8(H) 0.8 - 1.4 10/18/2025 12:07 AM EST [facility] Comment: Test results may vary using different testing platforms. Serial result monitoring should be performed using the same methodology. RECOMMENDED THERAPEUTIC RANGES USING INR : Stable oral anticoagulant therapy: 2.0 - 3.0 Mechanical prosthetic heart valve: 2.5 - 3.5 Recurrent acute myocardial infarction: 2.5 - 3.5 Blood 10/17/2025 3:58 PM EST 10/18/2025 12:07 AM EST Result [facility] Vani Winkler MD POINT OF CARE TEST ORDERABLE S Final Result [facility] [address] [place] [facility]. [address] * Transfuse RBC (10/17/2025 3:23 PM EST) Result [facility] us Slade Munoz MD NURSING TREATMENT ORDERABLES - B LOOD ADMIN Final Result * Transfuse RBC (10/17/2025 3:15 PM EST) Result [facility] us Slade Munoz MD NURSING TREATMENT ORDERABLES - B LOOD ADMIN Final Result * (ABNORMAL) TEG-Bypass/ECMO/Liver HN (Factor function, Platelet/Fibrin Clot Strength w/Clot Breakdown, Heparinase In All Channels) (10/17/2025 2:55 PM EST) Citrated Kaolin Reaction Time (TEGECMOLIVER) 5.1 4.6 - 9.1 minutes 10/17/2025 4:23 PM EST [facility] Citrated Kaolin W/Heparinase Reaction Time (TEGECMOLIVER) 5.2 4.3 - 8.3 minutes 10/17/2025 4:23 PM EST [facility] Citrated Kaolin Maximum Amplitude (TEGECMOLIVER) <40.0(L) 52.0 - 69.0 mm 10/17/2025 4:23 PM EST [facility] Citrated Functional Fibrinogen W/Heparinase Maximum Amplitude(TEGEC MOLIVER) <6.0(L) 15.0 - 34.0 mm 10/17/2025 4:23 PM EST [facility] Citrated Rapid Teg W/Heparinase Maximum Amplitude (TEGECMOLIVER) 32.8(L) 53.0 - 69.0 mm 10/17/2025 4:23 PM EST [facility] Citrated Kaolin w/Heparinase Percent Lysis (TEGECMOLIVER) 0.0 0.0 - 3.2 % 10/17/2025 4:23 PM EST [facility] Whole Blood (Citrate) 10/17/2025 2:55 PM EST 10/17/2025 3:05 PM EST us Slade Munoz MD LAB BLOOD ORDERABLES Final Resul t [facility] [address] * (ABNORMAL) CBC (10/17/2025 2:55 PM EST) WBC 4.4 3.8 - 10.8 10E3/uL 10/17/2025 3:20 PM EST [facility] RBC 2.90(L) 4.20 - 5.80 10E6/uL 10/17/2025 3:20 PM EST [facility] Hemoglobin 10.0(L) 13.2 - 17.1 g/dL 10/17/2025 3:20 PM EST [facility] Hematocrit 28.6(L) 38.5 - 50.0 % 10/17/2025 3:20 PM EST [facility] MCV 98.7 80.0 - 100.0 fL 10/17/2025 3:20 PM EST [facility] MCH 34.4(H) 27.0 - 33.0 pg 10/17/2025 3:20 PM EST [facility] MCHC 34.8 32.0 - 36.0 g/dL 10/17/2025 3:20 PM EST [facility] RDW 17.0(H) 11.0 - 15.0 % 10/17/2025 3:20 PM EST [facility] Platelets 53(L) 140 - 400 10E3/uL 10/17/2025 3:20 PM EST [facility] MPV 7.6 7.5 - 11.5 fL 10/17/2025 3:20 PM EST [facility] Whole Blood 10/17/2025 2:55 PM EST 10/17/2025 3:06 PM EST Slade Munoz MD LAB BLOOD ORDERABLES Final Resul t Performing Organization Address City/[facility]/ZIP Co de Phone Number [facility] [address] * (ABNORMAL) Fibrinogen (10/17/2025 2:55 PM EST) Fibrinogen 85(LL) 218 - 406 mg/dL 10/17/2025 3:46 PM EST [facility] Comment:The critical result was called to, and read back by, licensed caregiver CAMI GALEANO MD, AT 1545 Plasma 10/17/2025 2:55 PM EST 10/17/2025 3:06 PM EST Slade Munoz MD LAB BLOOD ORDERABLES Final Resul t Performing Organization Address City/[facility]/ZIP Co de Phone Number [facility] [address] * (ABNORMAL) Protime-INR (10/17/2025 2:55 PM EST) Protime 26.5(H) 12.1 - 15.1 seconds 10/17/2025 3:30 PM EST [facility] INR 2.3(H) 0.9 - 1.1 10/17/2025 3:30 PM EST [facility] Comment: RECOMMENDED THERAPEUTIC RANGES USING INR : Stable oral anticoagulant therapy: 2.0 - 3.0 Mechanical prosthetic heart valve: 2.5 - 3.5 Recurrent acute myocardial infarction: 2.5 - 3.5 Plasma 10/17/2025 2:55 PM EST 10/17/2025 3:06 PM EST Slade Munoz MD LAB BLOOD ORDERABLES Final Resul t Performing Organization Address City/[facility] Co de Phone Number [facility] [address] * POC Sample Type (10/17/2025 2:54 PM EST) Pathologist [facility] POC Sample Type Arterial 10/17/2025 3:55 PM EST [facility] Blood, Arterial 10/17/2025 2 :54 PM EST 10/17/2025 3:55 PM EST Vani Winkler MD POINT OF CARE TEST ORDERABLE S Final Result Performing Organization Address [facility] Co de Phone Number [facility] [address] * POC Anion Gap (10/17/2025 2:54 PM EST) Pathologist [facility] POC Anion Gap, Arterial 10 3 - 16 mmol/L 10/17/2025 3:55 PM EST [facility] Blood, Arterial 10/17/2025 2 :54 PM EST 10/17/2025 3:55 PM EST Vani Winkler MD POINT OF CARE TEST ORDERABLE S Final Result Performing Organization Address City/[facility]/ZIP Co de Phone Number [facility] [address] * (ABNORMAL) POC Chloride (10/17/2025 2:54 PM EST) POC Chloride 112(H) 98 - 110 mmol/L 10/17/2025 3:55 PM EST [facility] Blood, Arterial 10/17/2025 2 :54 PM EST 10/17/2025 3:55 PM EST Vani Winkler MD POINT OF CARE TEST ORDERABLE S Final Result [facility] [address] * (ABNORMAL) POC Hemoglobin (10/17/2025 2:54 PM EST) Pathologist [facility] POC Hemoglobin 8.7(L) 14.0 - 18.0 g/dL 10/17/2025 3:55 PM EST [facility] Blood, Arterial 10/17/2025 2 :54 PM EST 10/17/2025 3:55 PM EST Vani Winkler MD POINT OF CARE TEST ORDERABLE S Final Result Performing Organization Address City/[facility]/ZIP Co de Phone Number [facility] [address] * (ABNORMAL) POC hematocrit (10/17/2025 2:54 PM EST) Pathologist [facility] POC Hematocrit 26.0(L) 40 - 52 % 10/17/2025 3:55 PM EST [facility] Blood, Arterial 10/17/2025 2 :54 PM EST 10/17/2025 3:55 PM EST Vani Winkler MD POINT OF CARE TEST ORDERABLE S Final Result Performing Organization Address City/[facility]/ZIP Co de Phone Number [facility] [address] * POC Lactate (10/17/2025 2:54 PM EST) POC Lactate 1.23 0.50 - 2.20 mmol/L 10/17/2025 3:55 PM EST [facility] Blood, Arterial 10/17/2025 2 :54 PM EST 10/17/2025 3:55 PM EST Vani Winkler MD POINT OF CARE TEST ORDERABLE S Final Result [facility] [address] [place] [address]. [address] * POC Glucose (10/17/2025 2:54 PM EST) POC Glucose, Arterial 74 70 - 100 mg/dL 10/17/2025 3:55 PM EST [facility] Blood, Arterial 10/17/2025 2 :54 PM EST 10/17/2025 3:55 PM EST Vani Winkler MD POINT OF CARE TEST ORDERABLE S Final Result Performing Organization Address [facility] Co de Phone Number [facility] [address] [place] [address]. [address] * POC Ionized Calcium (10/17/2025 2:54 PM EST) POC Ionized Calcium 4.70 4.50 - 5.30 mg/dL 10/17/2025 3:55 PM EST [facility] Blood, Arterial 10/17/2025 2 :54 PM EST 10/17/2025 3:55 PM EST Vani Winkler MD POINT OF CARE TEST ORDERABLE S Final Result Performing Organization Address City/[facility] Co de Phone Number [facility] [address] [place] [address]. [address] * (ABNORMAL) POC Potassium (10/17/2025 2:54 PM EST) POC Potassium 3.2(L) 3.5 - 5.3 mmol/L 10/17/2025 3:55 PM EST [facility] Blood, Arterial 10/17/2025 2 :54 PM EST 10/17/2025 3:55 PM EST Vani Winkler MD POINT OF CARE TEST ORDERABLE S Final Result Performing Organization Address City/[facility]/ZIP Co de Phone Number [facility] [address] [facility]. [address] * POC Sodium (10/17/2025 2:54 PM EST) POC Sodium 145 136 - 146 mmol/L 10/17/2025 3:55 PM EST [facility] Blood, Arterial 10/17/2025 2 :54 PM EST 10/17/2025 3:55 PM EST Vani Winkler MD POINT OF CARE TEST ORDERABLE S Final Result Performing Organization Address City/[facility] Co de Phone Number [facility] [address] * POC TCO2 (10/17/2025 2:54 PM EST) POC TCO2, Arterial 24 23 - 27 mmol/L 10/17/2025 3:55 PM EST [facility] Blood, Arterial 10/17/2025 2 :54 PM EST 10/17/2025 3:55 PM EST Vani Winkler MD POINT OF CARE TEST ORDERABLE S Final Result Performing Organization Address City/[facility] Co de Phone Number [facility] [address] [facility]. [address] * (ABNORMAL) POC O2 SAT (10/17/2025 2:54 PM EST) POC O2 Saturation, Arterial 100(H) 95 - 98 % 10/17/2025 3:55 PM EST [facility] Blood, Arterial 10/17/2025 2 :54 PM EST 10/17/2025 3:55 PM EST Vani Winkler MD POINT OF CARE TEST ORDERABLE S Final Result [facility] [address] [place] [address]. [address] * POC Base Excess (10/17/2025 2:54 PM EST) POC Base Excess, Arterial -2 -2 - 3 mmol/L 10/17/2025 3:55 PM EST [facility] Blood, Arterial 10/17/2025 2 :54 PM EST 10/17/2025 3:55 PM EST Vani Winkler MD POINT OF CARE TEST ORDERABLE S Final Result Performing Organization Address [facility] Co de Phone Number [facility] [address] [facility]. [address] * POC HCO3 (10/17/2025 2:54 PM EST) POC HCO3, Arterial 23 22 - 26 mmol/L 10/17/2025 3:55 PM EST [facility] Blood, Arterial 10/17/2025 2 :54 PM EST 10/17/2025 3:55 PM EST Vani Winkler MD POINT OF CARE TEST ORDERABLE S Final Result [facility] [address] [place] [address]. [address] * (ABNORMAL) POC PO2 (10/17/2025 2:54 PM EST) POC pO2, Arterial 179(H) 80 - 100 mm Hg 10/17/2025 3:55 PM EST [facility] Blood, Arterial 10/17/2025 2 :54 PM EST 10/17/2025 3:55 PM EST Vani Winkler MD POINT OF CARE TEST ORDERABLE S Final Result [facility] [address] * POC PCO2 (10/17/2025 2:54 PM EST) POC pCO2, Arterial 40 35 - 45 mm Hg 10/17/2025 3:55 PM EST [facility] Blood, Arterial 10/17/2025 2 :54 PM EST 10/17/2025 3:55 PM EST Vani Winkler MD POINT OF CARE TEST ORDERABLE S Final Result Performing Organization Address City/[facility]/ZIP Co de Phone Number [facility] [address] * POC pH (10/17/2025 2:54 PM EST) POC pH, Arterial 7.37 7.35 - 7.45 10/17/2025 3:55 PM EST [facility] Blood, Arterial 10/17/2025 2 :54 PM EST 10/17/2025 3:55 PM EST Vani Winkler MD POINT OF CARE TEST ORDERABLE S Final Result Performing Organization Address City/[facility]/ZIP Co de Phone Number [facility] [address] * (ABNORMAL) POC INR (10/17/2025 2:53 PM EST) Prothrombin Time INR, POC 2.4(H) 0.8 - 1.4 10/18/2025 12:07 AM EST [facility] Comment: Test results may vary [...] ORDERABLE S Final Result Performing Organization Address City/[facility] Co de Phone Number [facility] [address] [facility]. [address] * Routine Culture plus Stain (Surgical Swab) (10/17/2025 2:50 PM EST) Gram Stain Result Rare Polymorphonuclear Leukocytes Seen [facility] Gram Stain Result No Organisms Seen; [facility] Culture Result No Growth After 3 Days [facility] Surgical Swab PERITONEAL FLUID / Unknown 10/17/2025 2:50 PM EST Comment:1. Ascites-anaerobic , aerobic, and fungal Narrative [facility] - 10/20/2025 11:09 AM EST 1. Ascites-anaerobic, aerobic, and fungal 1. Ascites-anaerobic, aerobic, and fungal Vani Winkler MD MICROBIOLOGY - GENERAL ORDER MARYA Final Result Performing Organization Address [facility] Co de Phone Number [facility] [address] [facility]. [address] * Anaerobic culture (Surgical Swab) (10/17/2025 2:50 PM EST) Culture Result No Anaerobes Isolated in 5 Days [facility] Surgical Swab PERITONEAL FLUID / Unknown 10/17/2025 2:50 PM EST Comment:1. Ascites-anaerobic , aerobic, and fungal Narrative [facility] - 10/22/2025 11:32 AM EST 1. Ascites-anaerobic, aerobic, and fungal 1. Ascites-anaerobic, aerobic, and fungal Vani Winkler MD MICROBIOLOGY - GENERAL ORDER MARYA Final Result Performing Organization Address City/[facility] Co de Phone Number [facility] [address] [facility]. [address] * (ABNORMAL) TEG-Standard Global Hemostasis (Rapid TEG with Heparin Effect, Contains a Baseline TEG) (10/17/2025 10:19 AM EST) Citrated Kaolin Reaction Time (TEGHEPARINASE) 7.2 4.6 - 9.1 minutes 10/17/2025 11:27 AM EST [facility] Citrated Rapid Teg Maximum Amplitude (TEGHEPARINASE) <40.0(L) 52.0 - 70.0 mm 10/17/2025 11:27 AM EST [facility] Citrated Functional Fibrinogen Maximum Amplitude (TEGHEPARINASE) 5.8(L) 15.0 - 32.0 mm 10/17/2025 11:27 AM EST [facility] Citrated Kaolin W/Heparinase Reaction Time (TEGHEPARINASE) 6.7 4.3 - 8.3 minutes 10/17/2025 11:27 AM [facility] Citrated Kaolin K-Time (TEGHEPARINASE) 2.9(H) 0.8 - 2.1 minutes 10/17/2025 11:27 AM [facility] Citrated Kaolin Angle (TEGHEPARINASE) 64.4 63.0 - 78.0 degrees 10/17/2025 11:27 AM [facility] Citrated Kaolin Maximum Amplitude (TEGHEPARINASE) <40.0(L) 52.0 - 69.0 mm 10/17/2025 11:27 AM [facility] Citrated Functional Fibrinogen- Fibrinogen Level (TEGHEPARINASE) 156.5(L) 278.0 - 581.0 mg/dL 10/17/2025 11:27 AM [facility] Whole Blood (Citrate) 10/17/2025 10:19 AM EST 10/17/2025 10:46 AM EST Kassi INTER[facility]O LAB BLOOD ORDERABLES Final Re sult [facility] [address] * Hepatitis C RNA, Quant Reflex to Genotyp (10/17/2025 10:19 AM EST) International Units Not Detected IU/mL 10/19/2025 2:12 PM EST [facility] Comment:Test methodology for HCV RNA quantification is an FDA-approved nucleic acid amplification assay. The Lower Limit of Quantitation (LLOQ) is 15 IU/mL. The linear range of the assay is 15-100,000,000 IU/mL. The Limit of Detection (LoD) is 12.0 IU/mL for EDTA plasma. The reference range is Not Detected. IU log10 See Note log 10 IU/mL 10/19/2025 2:12 PM EST [facility] Comment:HCV RNA not detected . Plasma 10/17/2025 10:1 9 AM EST 10/17/2025 11:09 AM EST K[facility]i INTER[facility] LAB BLOOD ORDERABLES Final Re sult Performing Organization Address City/[facility]/ZIP Co de Phone Number [facility] [address] [facility]. [address] * (ABNORMAL) APTT, No Anticoagulant (10/17/2025 10:19 AM EST) aPTT 41.2(H) 25.5 - 35.0 seconds 10/17/2025 11:02 AM EST [facility] Plasma 10/17/2025 10:1 9 AM EST 10/17/2025 10:46 AM EST Kassi INTER[facility] LAB BLOOD ORDERABLES Final Re sult Performing Organization Address [facility] Co de Phone Number [facility] [address] [facility]. [address] * (ABNORMAL) Fibrinogen (10/17/2025 10:19 AM EST) Fibrinogen 116(L) 218 - 406 mg/dL 10/17/2025 11:08 AM EST [facility] Plasma 10/17/2025 10:1 9 AM EST 10/17/2025 10:46 AM EST [facility] BLOOD ORDERABLES Final Re sult Performing Organization Address City/[facility] Co de Phone Number [facility] [address] [facility]. [address] * Magnesium, STAT (10/17/2025 10:18 AM EST) Magnesium 1.7 1.5 - 2.5 mg/dL 10/17/2025 11:46 AM EST [facility] Plasma 10/17/2025 10:1 8 AM EST 10/17/2025 10:46 AM EST Kassi INTERIANO LAB BLOOD ORDERABLES Final Re sult Performing Organization Address City/[facility] Co de Phone Number [facility] [address] * (ABNORMAL) Jose-Mims Virus VCA IgG Ab (10/17/2025 10:18 AM EST) Pathologist [facility] EBV VCA IgG Positive( A) Negative 10/17/2025 12:18 PM EST [facility] Comment:Presence of detectab le VCA IgG antibodies. A positive result indicates current or past exposure to Jose-Mims virus. EBV IGG NUM >750.00(H ) 0.00 - 17.99 U/mL 10/17/2025 12:18 PM EST [facility] Serum 10/17/2025 10:1 8 AM EST 10/17/2025 10:46 AM EST Kassi INTER[facility] LAB BLOOD ORDERABLES Final Re sult Performing Organization Address City/[facility] Co de Phone Number [facility] [address] [facility]. [address] * CMV IgG Antibody (10/17/2025 10:18 AM EST) Pathologist [facility] CMV IgG Negative Negative 10/17/2025 12:16 PM EST [facility] CMV IGG NUM <0.20 0.00 - 0.59 U/mL 10/17/2025 12:16 PM EST [facility] Serum 10/17/2025 10:1 8 AM EST 10/17/2025 10:46 AM EST Kassi INTER[facility] LAB BLOOD ORDERABLES Final Re sult [facility] [address] * HIV 1+2 Antibody/Antigen with Reflex (10/17/2025 10:18 AM EST) HIV 1+2 AB/AGN Nonreactive Nonreactive 10/17/2025 12:16 PM EST [facility] Serum 10/17/2025 10:1 8 AM EST 10/17/2025 10:46 AM EST Narrative [facility] - 10/17/2025 12:16 PM EST \HIVRNR Kassi INTER[facility] LAB BLOOD ORDERABLES Final Re sult Performing Organization Address [facility] Co de Phone Number [facility] [address] * Hepatitis B Core Antibody (10/17/2025 10:18 AM EST) Hep B Core Total Ab Nonreactive Nonreactive 10/17/2025 12:17 PM EST [facility] Comment:Health Department no tified in accordance with reportable infectious disease guidelines. Serum 10/17/2025 10:1 8 AM EST 10/17/2025 10:46 AM EST Narrative [facility] - 10/17/2025 12:17 PM EST A nonreactive final interpretation indicates that anti-HBc antibodies were not detected in the sample; it is possible that the individual is not infected with HBV. Kassi INTER[facility] LAB BLOOD ORDERABLES Final Re sult Performing Organization Address City/[facility]/ZIP Co de Phone Number [facility] [address] [facility]. [address] * Hepatitis C Antibody (10/17/2025 10:18 AM EST) HCV Ab Nonreactive Nonreactive 10/17/2025 12:25 PM EST [facility] Comment:Health Department no tified in accordance with reportable infectious disease guidelines. Serum 10/17/2025 10:1 8 AM EST 10/17/2025 10:46 AM EST [facility] - 10/17/2025 12:25 PM EST Antibodies to HCV not detected; does not exclude the possibility of exposure to HCV. Kassi Inman PA LAB BLOOD ORDERABLES Final Re sult [facility] [address] [facility]. [address] * (ABNORMAL) Hepatitis B Surface Antibody, Quantitati (10/17/2025 10:18 AM EST) Hep B S Ab Reactive( A) Nonreactive 10/17/2025 12:29 PM EST [facility] HBSAB NUMBER 260.00(H) 0.00 - 7.99 mIU/mL 10/17/2025 12:29 PM EST [facility] Serum 10/17/2025 10:1 8 AM EST 10/17/2025 10:46 AM EST [facility] - 10/17/2025 12:29 PM EST Individual is considered immune to HBV infection. [facility] [place] LAB BLOOD ORDERABLES Final Re sult Performing Organization Address [facility] Co de Phone Number [facility] [address] * Hepatitis B surface antigen (10/17/2025 10:18 AM EST) Hep B Surface Ag Nonreactive Nonreactive 10/17/2025 12:21 PM EST [facility] Comment:Health Department no tified in accordance with reportable infectious disease guidelines. Serum 10/17/2025 10:1 8 AM EST 10/17/2025 10:46 AM EST [facility] - 10/17/2025 12:21 PM EST Specimen is considered negative for HBsAg. [facility] BLOOD ORDERABLES Final Re sult [facility] [address] * Hepatitis A Antibody Total (10/17/2025 10:18 AM EST) Anti-HAV Total (IgG + IgM) Reactive 10/17/2025 12:22 PM EST [facility] Serum 10/17/2025 10:1 8 AM EST 10/17/2025 10:46 AM EST Narrative [facility] - 10/17/2025 12:22 PM EST HAV antibodies detected [facility] [place] LAB BLOOD ORDERABLES Final Re sult [facility] [address] * Vitamin D 25 Hydroxy (10/17/2025 10:18 AM EST) Vit D, 25-Hydroxy 39.3 30.0 - 100.0 ng/mL 10/17/2025 12:15 PM EST [facility] Comment: Vitamin D deficiency has been defined by the [place] [employer] (IOM) and an Endocrine Society [...] EST 10/17/2025 10:46 AM EST Kassisatya Inman [place] LAB BLOOD ORDERABLES Final Re sult [facility] [address] * Antibody Screen (10/17/2025 10:18 AM EST) Antibody Screen Negative 10/17/2025 11:09 AM EST [facility] Blood 10/17/2025 10:1 8 AM EST 10/17/2025 10:26 AM EST Narrative [facility]ALTH [facility] - 10/17/2025 11:17 AM EST Testing performed by [facility] Transfusion Service Kassi INTERIANO BLOOD BANK TEST ORDERABLES Fi nal Result [facility] [address] [facility]. [address] * ABO/Rh (10/17/2025 10:18 AM EST) ABO Grouping A 10/17/2025 10:53 AM EST [facility] Rh Type Positive 10/17/2025 10:53 AM EST [facility] Blood 10/17/2025 10:1 8 AM EST 10/17/2025 10:26 AM EST Kassi INTERIANO BLOOD BANK TEST ORDERABLES Fi nal Result [facility] [address] * (ABNORMAL) Hepatic Function Panel (10/17/2025 10:18 AM EST) Total Bilirubin 4.9(H) 0.0 - 1.5 mg/dL 10/17/2025 11:47 AM EST [facility] Bilirubin, Direct 1.35(H) 0.00 - 0.40 mg/dL 10/17/2025 11:47 AM EST [facility] AST 39 13 - 39 U/L 10/17/2025 11:47 AM EST [facility] ALT 27 7 - 52 U/L 10/17/2025 11:47 AM EST [facility] Alkaline Phosphatase 143(H) 36 - 125 U/L 10/17/2025 11:47 AM EST [facility] Total Protein 6.5 6.4 - 8.9 g/dL 10/17/2025 11:47 AM EST [facility] Albumin 2.3(L) 3.5 - 5.7 g/dL 10/17/2025 11:47 AM EST [facility] Bilirubin, Indirect 3.55(H) 0.00 - 1.10 mg/dL 10/17/2025 11:47 AM EST [facility] Plasma 10/17/2025 10:1 8 AM EST 10/17/2025 10:46 AM EST Kassi INTERIANO LAB BLOOD ORDERABLES Final Re sult [facility] [address] [place] [address], [facility] * (ABNORMAL) Renal Function Panel w/EGFR (10/17/2025 10:18 AM EST) Sodium 141 133 - 146 mmol/L 10/17/2025 11:47 AM [facility] Potassium 3.3(L) 3.5 - 5.3 mmol/L 10/17/2025 11:47 AM [facility] Chloride 110 98 - 110 mmol/L 10/17/2025 11:47 AM [facility] CO2 29 21 - 33 mmol/L 10/17/2025 11:47 AM [facility] Comment:High lactate dehydro genase concentrations in patient samples may cause falsely increased bicarbonate results. If markedly elevated LDH is observed or suspected, please assess results in conjunction with patient`s clinical presentation. In cases of discrepant results, consider evaluating CO2 in with a blood gas order. Anion Gap 2(L) 3 - 16 mmol/L 10/17/2025 11:47 AM EST [facility] BUN 13 7 - 25 mg/dL 10/17/2025 11:47 AM [facility] Creatinine 0.81 0.60 - 1.30 mg/dL 10/17/2025 11:47 AM [facility] Glucose 81 70 - 100 mg/dL 10/17/2025 11:47 AM [facility] Calcium 8.1(L) 8.6 - 10.3 mg/dL 10/17/2025 11:47 AM [facility] Phosphorus 2.8 2.1 - 4.7 mg/dL 10/17/2025 11:47 AM EST [facility] Albumin 2.3(L) 3.5 - 5.7 g/dL 10/17/2025 11:47 AM EST [facility] Osmolality, Calculated 291 278 - 305 mOsm/kg 10/17/2025 11:47 AM EST [facility] EGFR >90 10/17/2025 11:47 AM EST [facility] Comment: As of 2022, the [...] INTERIANO LAB BLOOD ORDERABLES Final Re sult [facility] [address] [id number], [facility] * Hemoglobin A1C (10/17/2025 10:18 AM EST) Hemoglobin A1C 4.0 4.0 - 5.6 % 10/17/2025 1:42 PM EST [facility] Comment: Hemoglobin A1c Interpretation Guidelines: [...] INTERIANO LAB BLOOD ORDERABLES Final Re sult [facility] [address] [facility] [place] [address], [facility] * (ABNORMAL) Venous Blood Gas, Line/Syringe, STAT (10/17/2025 10:18 AM EST) PH-Line Draw 7.37 7.32 - 7.42 10/17/2025 10:27 AM EST [facility] PCO2-Line Draw 46 41 - 51 mm Hg 10/17/2025 10:27 AM [facility] PO2-Line Draw 29 25 - 40 mm Hg 10/17/2025 10:27 AM [facility] HCO3-Line Draw 24 24 - 28 mmol/L 10/17/2025 10:27 AM [facility] CO2 Content-Line Draw 28 25 - 29 mmol/L 10/17/2025 10:27 AM [facility] Base Excess-Line Draw 0.9 -2.0 - 3.0 mmol/L 10/17/2025 10:27 AM [facility] %HBO2-Line Draw 38.5(L) 40.0 - 70.0 % 10/17/2025 10:27 AM [facility] Carboxyhgb-Rebecca e Draw 1.4 0.0 - 2.0 % 10/17/2025 10:27 AM [facility] Comment: CARBOXYHEMOGLOBIN (CO) REFERENCE RANGES: Non-Smokers: <2 % Smokers: <8 % TOXIC: >20 % Methemoglobin- Line Draw 0.6 0.0 - 1.5 % 10/17/2025 10:27 AM [facility] Blood, Venous 10/17/2025 10: 18 AM EST 10/17/2025 10:24 AM EST Kassi INTERIANO LAB BLOOD ORDERABLES Final Re sult Performing Organization Address [facility] Co de Phone Number [facility] [address] [facility]. [address] * (ABNORMAL) Protime-INR (10/17/2025 10:18 AM EST) Protime 21.7(H) 12.1 - 15.1 seconds 10/17/2025 11:01 AM EST [facility] INR 1.8(H) 0.9 - 1.1 10/17/2025 11:01 AM EST [facility] Comment: RECOMMENDED THERAPEUTIC RANGES USING INR : Stable oral anticoagulant therapy: 2.0 - 3.0 Mechanical prosthetic heart valve: 2.5 - 3.5 Recurrent acute myocardial infarction: 2.5 - 3.5 Plasma 10/17/2025 10:1 8 AM EST 10/17/2025 10:46 AM EST K[facility] INTER[facility] LAB BLOOD ORDERABLES Final Re sult Performing Organization Address City/[facility]/ZIP Co de Phone Number [facility] [address] [facility]. [address] * (ABNORMAL) Differential (10/17/2025 10:18 AM EST) Neutrophils Relative 45.0 40.0 - 80.0 % 10/17/2025 10:59 AM EST [facility] Lymphocytes Relative 34.7 15.0 - 45.0 % 10/17/2025 10:59 AM EST [facility] Monocytes Relative 12.9(H) 0.0 - 12.0 % 10/17/2025 10:59 AM EST [facility] Eosinophils Relative 6.4 0.0 - 8.0 % 10/17/2025 10:59 AM EST [facility] Basophils Relative 1.0 0.0 - 1.0 % 10/17/2025 10:59 AM EST [facility] nRBC 0 0 - 0 /100 WBC 10/17/2025 10:59 AM EST [facility] Neutrophils Absolute 1,845 1,520 - 8,640 /uL 10/17/2025 10:59 AM EST [facility] Lymphocytes Absolute 1,423 570 - 4,860 /uL 10/17/2025 10:59 AM EST [facility] Monocytes Absolute 529 0 - 1,296 /uL 10/17/2025 10:59 AM EST [facility] Eosinophils Absolute 262 0 - 864 /uL 10/17/2025 10:59 AM EST [facility] Basophils Absolute 41 0 - 108 /uL 10/17/2025 10:59 AM EST [facility] Whole Blood 10/17/2025 10:1 8 AM EST 10/17/2025 10:46 AM EST us Kassi INTERIANO LAB BLOOD ORDERABLES Final Re sult [facility] [address] * (ABNORMAL) CBC (10/17/2025 10:18 AM EST) WBC 4.1 3.8 - 10.8 10E3/uL 10/17/2025 10:59 AM EST [facility] RBC 3.32(L) 4.20 - 5.80 10E6/uL 10/17/2025 10:59 AM EST [facility] Hemoglobin 11.2(L) 13.2 - 17.1 g/dL 10/17/2025 10:59 AM [facility] Hematocrit 32.9(L) 38.5 - 50.0 % 10/17/2025 10:59 AM [facility] MCV 99.1 80.0 - 100.0 fL 10/17/2025 10:59 AM EST [facility] MCH 33.8(H) 27.0 - 33.0 pg 10/17/2025 10:59 AM [facility] MCHC 34.1 32.0 - 36.0 g/dL 10/17/2025 10:59 AM [facility] RDW 17.3(H) 11.0 - 15.0 % 10/17/2025 10:59 AM EST [facility] Platelets 61(L) 140 - 400 10E3/uL 10/17/2025 10:59 AM EST [facility] MPV 8.2 7.5 - 11.5 fL 10/17/2025 10:59 AM EST [facility] Whole Blood 10/17/2025 10:1 8 AM EST 10/17/2025 10:46 AM EST Kassi INTERIAON LAB BLOOD ORDERABLES Final Re sult Performing Organization Address [facility] Co de Phone Number [facility] [address] [facility]. [address] * Toxoplasma gondii Antibody, IgG (10/17/2025 10:18 AM EST) Toxoplasma Gondii IgG <3.0 0.0 - 7.1 IU/mL 10/18/2025 4:54 AM EST [facility] Comment: Negative <7.2 Equivocal 7.2 - 8.7 Positive >8.7 Serum 10/17/2025 10:1 8 AM EST 10/18/2025 5:06 AM EST Narrative [facility] - 10/18/2025 5:06 AM EST PERFORMED AT: [facility] [id number] WEB PROJECT MANAGER: Mateo Miller, PhD PHONE: [phone] [facility] LAB BLOOD ORDERABLES Final Re sult Performing Organization Address City/[facility] Co de Phone Number [facility] [address] [facility]. [address] * X-ray Portable Chest (10/17/2025 10:11 [...] BE SPLIT 08 (Given - Provider: Stacy Zaomrano RN) potassium chloride (KLOR-CON M20) CR tablet [...] documented as of this encounter Care Teams Video Journalist Relationship Specialty Start Date End Date System, Provider Not In PCP - General 09/10/25 10/24/25 documented as of this encounter
--- OUTSIDE RECORDS SUMMARY | 2025-10-17 13:37 | XMS_ITS | Encounter Summary ---
Author Organization [facility] Address [address] [place] [id number] Care Team Providers Care Gaming Cashier Name Role Phone System, Provider Not In [...] release of HIV test results or diagnoses. [id number] Reason for Visit * Auth/Cert (Routine) Specialty Diagnoses / Procedures Referred By Gianna t Referred To Contact Diagnoses TRANSPLANT LIVER Procedures TRANSPLANT LIVER [facility] [address] [place] [address] Phone: tel: Referral ID Status Reason Start Date Expiration Date Visits Re quested Visits Authorized [id number] 1 1 Encounter Details Date Type Department Care Team (Late st Contact Info) Description 10/17/2025 1:37 PM EST Anesthesia Event [facility] [address] [place] [address] Oskar Torres MD [address] [place] [address] Ann Blackwell MD [address] [place] [address] Anesthesia Record Procedure Summary Procedure Name Responsible Anesthesiologist Anesthesia Start Time Anesthesia Stop Time TRANSPLANT LIVER (Abdomen) Oskar Torres MD 10/17/25 1337 10/17/25 2245 Events Date Time Event Comment 10/17/2025 1230 1337 An Start 1337 An Start Data 1349 An Induction 1350 An Intubation 1446 Time Out 1716 Provider Handoff Type of Ane sthetic: {Type of Anesthesia:1596856698} Airway: Type: {Airway:5668620694} Difficult BMV / Intubation: {YES/NO WITH YES WILDCARD:18287715} Vascular Access: {Vascular Access:2078228280} Monitors: {Monitor:9080770124} Patient Specific Management Goals: {yes/no :26397744} Outstanding Issues to Address: {Outstanding Issues:0412959935} Disposition: {Disposition:2343853108} 1723 Anhepatic Phase 1745 Quick Note IVC clamp remov ed by surgical team. CVP immediately increased from 6-7 to 13 to 18-19 1807 Hepatic Reperfusion 1930 Quick Note POC INR 5.9, la b INR called with result 7.5 TEG sent at the same time with normal R time (7.1 on CK and actually *low* at 2.5 on CKH). Re-confirmed with surgical team- surgical field is not oozy. Will plan to repeat labs in 30-60 minutes, or empirically begin FFP if there is a change in medical bleeding in the field. 1936 Quick Note Given ~500 mL f rom cell saver. Given content of cell saver blood and elevated INR, adding 2 units of FFP to the cell saver volume for transfusion / to avoid further diluting coagulation factors. [address] Drew notes field without any clot formation at this time. 2 additional units of FFP hung 2009 Provider Handoff Type of Ane sthetic: general Airway: Type: ETT Difficult BMV / Intubation: no Vascular Access: PIV(s) and Introducer Monitors: Standard ASA, arterial line, minimally invasive CO / SVV, and PAC / CVP Patient Specific Management Goals: no Outstanding Issues to Address: hemodynamics / volume resuscitation and coags (TEG/INR, ACT, PTT) Disposition: ICU 2225 An Emergence 2228 an stop data 2229 Transport to ICU 5 An Stop Meds Name Total succinylcholine (QUELICIN) 20 mg/mL inje ction 140 mg fentanyl (SUBLIMAZE) injection 50 mcg/ml 50 mcg propofol (DIPRIVAN) injection 10 mg/ml 2 00 mg vecuronium (NORCURON) injection 25 mg heparin (porcine) injection 1,000 units/ mL 3,000 Units calcium chloride 100 mg/ml (10%) injecti on IV 3 g EPINEPHrine 10 mcg/mL in D5W 10 mL IV sy ringe 10 mcg lidocaine (PF) 20 mg/mL (2%) injection - Intravenous 100 mg midazolam (VERSED) injection 1 mg/ml 2 m g AMPicillin 2 g in sodium chloride 0.9% 1 00 mL IVPB (Adww9Sls) 6 g cefTRIAXone (ROCEPHIN) 2 g in sodium chl oride 0.9% 20 mL IV Push 2 g EPINEPHrine (ADRENALIN) 10 mg in sodium chloride 0.9 % 250 mL infusion 290 mcg methylPREDNISolone sodium solares ccinate (SOLU-medrol) 500 mg in sodium chloride 0.9 % 100 mL IVPB 500 mg norepinephrine (LEVOPHED) 16 mg/250 mL ( 64 mcg/mL) infusion 2,363 mcg vasopressin (VASOSTRICT) 40 units in sod ium chloride 0.9% 100 mL infusion 15.56 Units heparin (porcine) injection 5,000 units/ mL 5,000 Units glycopyrrolate (ROBINUL) 0.2 mg/mL injec tion 1 mg norepinephrine (LEVOPHED) injection 1 mg /ml 96 mcg dextrose 50% (D50W) iv syringe 25 mL sodium bicarbonate injection 1 mEq/mL 50 mEq furosemide (LASIX) 10 mg/ml injection 40 mg insulin (HumuLIN R) infusion - TITRATABLE NURSING PROTOCOL (HYPERGLYCEMIA) 4.93 Units propofol (DIPRIVAN) 10 mg/ml infusion - 100mL VIAL SIZE 295.41 mg neostigmine (PROSTIGMINE) 1 mg/mL inject ion 4 mg electrolyte-r (pH 7.4)(NORMOSOL-R pH 7.4 ) IV soln 1000 mL 8,000 mL albumin human bottle 5% 500 mL albumin human bottle 25% 50 mL * Agents Name N2O O2 N2O Air Sevoflurane * Blood Name Total PRBC 1,750 mL PLATELETS 750 mL CRYOPRECIP 450 mL FFP 1,500 mL Lines, Drains, and Airways Type Details Placement Removal Incision 10/17/25; 2137; Abdo men; N/A; 4x8 tegaderm 10/17/25 2137 by Jonatan De La O RN ETT 10/17/25; 8 mm; Cuff ed; 22 cm; Lips; Commercial tube taylor; Per order 10/17/25 0000 by Karen Washington, FAMILY COACH 10/18/25 0800 by Angela Tamez RN Peripheral IV 10/17/25; 1015; 18 G ; Left; Antecubital; Alcohol; Tolerated well 10/17/25 1015 by Yvette Durham RN 10/22/25 1513 by Karolyn Ji RN Anesthesia Airway Device 10/17/25; 1350; I.V., Modified Rapid Sequence; Standard; Walter Video MAC; 4; Oral; Grade I View; ETT; 8 mm; Cuffed; 8 mL; 24 cm; Stylet Standard; 1; Resident; Capnograph; Yes; 10/19/25; 2248 10/17/25 1350 by Evelio Jones MD 10/19/25 2248 by Gisela Meng RN Urethral Catheter 10/17/25; 1355; 16 F r.; Other (Comment) (patient under anesthesia); Per order 10/17/25 1355 by Aspen Coleman RN 10/19/25 1330 by Angela Tamez RN Arterial Line 10/17/25; 1415 (crea marcus via procedure documentation); Right; Radial; Chlorhexidine 10/17/25 1415 by Evelio Jones MD 10/20/25 1000 by Stacy Zamorano RN Introducer 10/17/25; 1436 (crea marcus via procedure documentation); OR; Sterile; 10/19/25; 1230; 9F double lumen introducer (MAC) 10/17/25 1436 by Slade Owusu, 10/19/25 1230 by Angela Tamez RN Peripheral IV 14 G ; Left, Posteri or; Forearm 10/17/25 1645 by 10/22/25 1513 by Karolyn Ji RN Peripheral IV 16 G; Right; Hand 10/17/25 1645 by 10/22 0900 by Karolyn Ji RN Drain 10/17/25; 2128; 1; B ulb; Abdomen; Inferior, Lateral, Right; 19 Fr.; 1430 10/17/252127 by Jonatan De La O RN 10/22/25 1430 by Karolyn Ji RN Drain 10/17/25; 2128; 2; B ulb; Abdomen; Inferior, Lateral, Left; 19 Fr.; Other (Comment) (removed by , drain bag placed over site) 10/17/252128 by Jonatan De La O RN 10/21/25 0000 by Stacy Zamorano RN NG/OG Tube 10/17/25; 0; Nasogastric; Right nostril; Other (Comment) (removed per txp team at bedside) 10/17/25 220 by Kira Masterson RN 10/19/25 0930 by Angela Tamez RN Peripheral IV 10/22/25; 1000; 18 G ; Right; Antecubital 10/22/25 1000 by Karolyn Ji RN 10/22/25 1513 by Karolyn Ji RN documented in this encounter Social History Tobacco [...] living in a snf (including now)? No 10/17/2025 Utilities Answer Date [...] as of this encounter Functional Status * Peripheral Vascular Question Answer Date of Assessment Author Peripheral Vascular (WDL) X 10/18/2025 8:00 PM Anne Taveras RN Anti-Embolism Devices Bilateral;Sequenti al compression devices, below knee 10/19/2025 8:00 AM Angela Del Cid RN Anti-Embolism Intervention On 10/19/2025 8:00 AM Angela Del Cid RN * AUDIT-C Score Answer Date of Assessment Author 0 10/17/2025 11:44 PM Kira Chandler RN * Question Answer Date of Assessment Author Q1: How often do you have a drink containing alcohol? Never 10/17/2025 11:44 PM Kiar Chandler R N Q2: How many drinks containing alcohol do you have on a typical day when you are drinking? Patient does not drink 10/17/2025 11:44 PM Kira Chandler RN Q3: How often do you have six or more drinks on one occasion? Never 10/17/2025 11:44 PM Kira Chandler R N documented as of this encounter Progress Notes * Slade Munoz MD - 10/18/2025 11:31 AM EST Anesthesia Post Note Patient: David Pop Procedure(s) Performed: Procedure(s): TRANSPLANT LIVER Anesthesia type: general Patient location: ICU Airway patency: Patent Pain management: Adequate PONV status: None Hydration status: Adequate Post assessment: No apparent anesthetic complications, tolerated procedure well and no evidence of recall Level of consciousness: Awake, alert and oriented Post vitals: Stable Last Vitals: Vitals: 10/19/25 0200 10/19/25 0300 10/19/25 0400 10/19/25 0435 BP: 133/84 155/87 150/78 BP Location: Left upper arm Patient Position: Lying BP Cuff Size: Regular Pulse: 65 69 62 Resp: 11 9 12 Temp: 98.2 ??F (36.8 ??C) TempSrc: [place] SpO2: 98% 99% 98% 95% Weight: Height: Last Temperature: 98.2 ??F (36.8 ??C) (10/19/2025 4:00 AM) Complications: There were no known notable events for this encounter. documented in this encounter H&P Notes * Slade Munoz MD - 10/17/2025 11:22 AM EST [facility] DEPARTMENT OF ANESTHESIOLOGY PRE-PROCEDURAL EVALUATION David Pop is a 65 y.o. year old male presenting for: Procedure(s): TRANSPLANT LIVER Surgeon: Vani Drew MD Chief Complaint TRANSPLANT LIVER Review of Systems Anesthesia Evaluation Patient summary reviewed. No history of anesthetic complications I have reviewed the History and Physical Exam, any relevant changes are noted in the anesthesia pre-operative evaluation. Cardiovascular: Exercise tolerance: good Do Met score: 4 - Raking leaves. Weeding or pushing a power mower. Hypertension is. (-) past DC, CAD, cardiomyopathy, CABG/stent, dysrhythmias, angina, CHF. Neuro/Muscoloskeletal/Psych: (-) seizures, neuromuscular disease, TIA, CVA, psychiatric history, no anxiety, no depression. Comments: Hepatic encephalopathy, mild Pulmonary: (-) no pneumonia, COPD, asthma, recent URI, sleep apnea, no PE. GI/Hepatic/Renal: (+) hiatal hernia, liver disease and end stage liver disease. Chronic renal disease (Nephrolithiasis). (-) GERD, PUD, hepatitis. Endo/Other: (+) anemia, thrombocytopenia and bleeding disorder. (-) diabetes mellitus, hypothyroidism, hyperthyroidism, no HIV, no cancer, no DVT, no clotting disorder, no immunosuppression, no steroid use. 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 Social History Social History Socioeconomic History Marital [...] Other Topics Concern Not on file Social Drivers of Health Financial Resource Strain: Low Risk (06/15/2025) Received from [facility] Overall Financial Resource Strain (CARDIA) How hard is it for you to pay for the very basics like food, housing, medical care, and heating?: Not hard at all Food Insecurity: No Food Insecurity (06/15/2025) Received from [facility] Hunger Vital Sign Within the past 12 months, you worried that your food would run out before you got the money to buymore.: Never true Within the past 12 months, the food you bought just didn't last and you didn't have money to get more.: Never true Transportation Needs: No Transportation Needs (06/15/2025) Received from [facility] PRAPARE - Transportation In the past 12 months, has lack of transportation kept you from medical appointments or from getting medications?: No In the past 12 months, has lack of transportation kept you from meetings, work, or from getting things needed for daily living?: No Physical Activity: Inactive (06/15/2025) Received from [facility] Exercise Vital Sign On average, how many days per week do you engage in moderate to strenuous exercise (like a brisk walk)?: 0 days On average, how many minutes do you engage in exercise at this level?: 0 min Stress: No Stress Concern Present (06/15/2025) Received from [facility] [employer] - Occupational Stress Questionnaire Do you feel stress - tense, restless, nervous, or anxious, or unable to sleep at night because yourmind is troubled all the time - these days?: Only a little Social Connections: Socially Integrated (06/15/2025) Received from [facility] Social Connection and Isolation Panel In a typical week, how many times do you talk on the phone with family, friends, or neighbors?: More than three times a week How often do you get together with friends or relatives?: More than three times a week How often do you attend jew or mandaeism services?: More than 4 times per year Do you belong to any clubs or organizations such as jew groups, unions, fraFastclick or athletic groups, or school groups?: Yes Attends Club or Organization Meetings: Not on file Are you , , , , never , or living with a partner?: Intimate Partner Violence: Not At Risk (10/17/2025) Humiliation, Afraid, Rape, and Kick questionnaire Fear of Current or Ex-Partner: No Emotionally Abused: No Physically Abused: No Sexually Abused: No Medications Allergies: Allergies[1] Home Meds: Home Medications Medication Sig Taking? Last Dose [...] mouth 2 times a day. Yes 10/16/2025 Inpatient Meds: Scheduled: cefTRIAXone (ROCEPHIN) IVPB 2 g Intravenous Once And AMPicillin IVPB 2 g Intravenous Once heparin (porcine) heparin 5,000 Units Subcutaneous 3 times per day methylprednisolone 500 mg Intravenous Once Continuous: EPINEPHrine (ADRENALIN) 10 mg in sodium chloride 0.9 % 250 mL infusion insulin regular in 0.9 % sodium chloride norepinephrine vasopressin PRN: heparin (porcine) Vital Signs Wt Readings from Last 3 Encounters: 10/17/25 220 lb (99.8 kg) 09/24/25 222 lb (100.7 kg) 09/10/25 217 lb 6.4 oz (98.6 kg) Ht Readings from Last 3 Encounters: 10/17/25 5' 6 (1.676 m) 09/24/25 5' 6 (1.676 m) 09/10/25 5' 6 (1.676 m) Temp Readings from Last 3 Encounters: 10/17/25 97.1 ??F (36.2 ??C) (Temporal) 09/24/25 97.8 ??F (36.6 ??C) (Oral) 09/10/25 97.9 ??F (36.6 ??C) (Oral) BP Readings from Last 3 Encounters: 10/17/25 120/71 09/24/25 125/73 09/10/25 127/68 Pulse Readings from Last 3 Encounters: 10/17/25 61 09/24/25 70 09/10/25 62 SpO2 Readings from Last 3 Encounters: 10/17/25 100% 09/24/25 100% 09/10/25 100% Physical Exam Airway: Mallampati: II Mouth Opening: >2 FB TM distance: > = 3 FB (+) facial hair Dental: - No obvious cracked, loose, chipped, or missing teeth. Pulmonary: Breathing: unlabored (-) no wheezes and no PE. Cardiovascular: Rhythm: regular Rate: normal (-) peripheral edema and weak pulses. Neuro/Musculoskeletal/Psych: Mental status: alert and oriented to person, place and time. Abdominal: - normal exam Current OB Status: Other Findings: Laboratory Data Lab Results Component Value Date WBC 4.1 10/17/2025 HGB 11.2 (L) 10/17/2025 HCT 32.9 (L) 10/17/2025 MCV 99.1 10/17/2025 PLT 61 (L) 10/17/2025 No results found for: ABORH Lab Results Component Value Date GLUCOSE 98 09/24/2025 BUN 13 09/24/2025 CO2 29 09/24/2025 CREATININE 0.84 09/24/2025 K 3.9 09/24/2025 NA 137 09/24/2025 CL 104 09/24/2025 CALCIUM 8.1 (L) 09/24/2025 ALBUMIN 2.0 (L) 09/24/2025 ALBUMIN 2.0 (L) 09/24/2025 PROT 5.8 (L) 09/24/2025 ALKPHOS 142 (H) 09/24/2025 ALT 22 09/24/2025 AST 37 09/24/2025 BILITOT 3.4 (H) 09/24/2025 Lab Results Component Value Date INR 1.8 (H) 10/17/2025 No results found for: PREGTESTUR , PREGSERUM , HCG , HCGQUANT Anesthesia Plan ASA 4 Anesthesia Type: general. PONV Risk Factors: current non-smoker trial extubation performed Induction: Intravenous induction. Plan, alternatives, and risks of anesthesia, including , have been explained to and discussed with patient and spouse / significant other. Questions answered / anesthesia plan accepted. Use of blood products discussed with Patient and spouse/significant other. Use of blood products discussed with who consented to blood products. Plan discussed with resident and attending. ANESTHESIOLOGY ATTENDING ADDENDUM: I have interviewed and examined the patient prior to induction of anesthesia on 10/17/25. I reviewedthe history and physical and the above note. I agree with the findings, assessment, and plan with my addenda. ASA 4 Pertinent problems: Problem List[2] Plan: Anesthetic: GA Analgesia: Multimodal non-opioids with IV opioids as needed Regional: None PONV prophylaxis: 2 interventions IV Access: Adequate peripheral IVs, large bore CVCs Monitors: Standard monitors, A-line, PAC, possible AQUILES Postoperative disposition: ICU I discussed alternatives, benefits, and risks for the anesthesia plan including but not limited to: General anesthesia (sore throat, hoarse voice, difficulty swallowing, dental damage, CVA, myocardial infarction, cardiac arrest, ) Transfusion (HIV, hepatitis, transfusion reactions) Arterial line complications (vascular damage, nerve damage, infection) Central venous line complications (pneumothorax, vascular damage, nerve damage, infection) Pulmonary artery catheter (pneumothorax, vascular damage, nerve damage, infection, arrhythmia, myocardial or pulmonary vessel damage) Transesophageal echocardiography (damage to oropharynx, esophagus, stomach, and dentition, or bleeding David Pop and/or appropriate family or DPOA verbalized understanding and agreed to the planabove. Slade Munoz MD, [facility] Department of Anesthesiology [1] Allergies Allergen Reactions Lisinopril Other (See Comments) [2] Patient Active Problem List Diagnosis Alcoholic cirrhosis (CMS-HCC) Ascites Hepatic encephalopathy (CMS-HCC) Esophageal varices (CMS-HCC) Pre-transplant evaluation for chronic liver disease Encounter for pre-transplant evaluation for liver transplant documented in this encounter Procedure Notes * Slade Munoz MD - 10/17/2025 4:43 PM ESTAssociated Order(s): Insert Arterial Line Insert Arterial Line Date/Time: 10/17/2025 2:15 PM Performed by: Evelio Jones MD Authorized by: Slade Munoz MD Verbal consent obtained?: Yes Written consent obtained?: Yes Consent given by: Patient Risks and benefits: Risks, benefits and alternatives were discussed Patient states understanding of procedure being performed: Yes Indications: Indications: hemodynamic monitoring Pre-procedure details: Skin preparation: Chlorhexidine Sedation: Sedation type: Deep Anesthesia: Anesthesia method: None Procedure details: Laterality: Right Location: Radial artery Catheter type: 20g short Placement technique: Ultrasound guided Number of attempts: 1 Transducer: waveform confirmed Post-procedure details: Post-procedure: Secured with tape, sterile dressing applied and sutured I was present for and supervised this entire procedure. It was performed by Evelio Jones MD with my assistance. I agree with the documentation in the cosigned note. Indication: ESLD, hemodynamic monitoring Procedure: Insert arterial line Slade Munoz MD, [facility] Department of Anesthesiology * Slade Owusu DO - 10/17/2025 2:36 PM ESTAssociated Order(s): Pulmonary Artery Catheter Pulmonary Artery Catheter Date/Time: 10/17/2025 2:36 PM Performed by: Slade Owusu DO Authorized by: Slade Munoz MD Verbal consent obtained?: Yes Consent given by: Patient Risks and benefits: Risks, benefits and alternatives were discussed Patient states understanding of procedure being performed: Yes PA catheter indications: Hemodynamic monitoring Location at time of catheter placement: OR Conditions of catheter placement: Sterile Preparation: Skin prepped with 2% chlorhexidine Local anesthetic: None Catheter type: Pulmonary artery catheter Location: Right internal jugular Number of attempts: 1 Successful introducer placement: Yes PA catheter advanced: While monitoring the appropriate wave patterns on the bedside monitor PA catheter position at introducer hub (cm): 45 Chest x-ray ordered: To be done by ICU team post op PA catheter complications: None * Slade Owusu DO - 10/17/2025 2:36 PM ESTAssociated Order(s): Central Line Central Line Date/Time: 10/17/2025 2:36 PM Performed by: Slade Owusu DO Authorized by: Slade Munoz MD Verbal consent obtained?: Yes Consent given by: Patient Risks and benefits: Risks, benefits and alternatives were discussed Patient states understanding of procedure being performed: Yes Time out: Immediately prior to the procedure a time out was called Catheter type: 9F dual lumen introducer (MAC) Indications: Vascular access Local anesthetic: None Location at time of line placement: OR Conditions of line placement: Sterile Preparation: Skin prepped with 2% chlorhexidine Catheter fully inserted (hub at the skin): Yes Insertion guided by: Ultrasound guided Number of attempts: 1 Successful placement: Yes Sutured: Yes Post Procedure Chest x-ray ordered: To be done by ICU team post op Complications: none documented in this encounter Plan of Treatment Not on file documented as of this encounter Procedures Procedure Name Priority Date/Time Associated Diagnosis Comments HC ANESTHESIA PULMONARY ARTERY CATHETER Routine 10/17/2025 2:36 PM EST SWAN JS Routine 10/17/2025 2:36 PM EST HC ANESTHESIA DUAL LUMEN INTRODUCER (MAC) CENTRAL LINE KIT Routine 10/17/2025 2:36 PM EST CENTRAL LINE SINGLE LUMEN PERFORMABLE Routine 10/17/2025 2:36 PM EST INSERT ARTERIAL LINE Routine 10/17/2025 2:15 PM EST documented in this encounter Results * CENTRAL LINE SINGLE LUMEN PERFORMABLE, HC ANESTHESIA PULMONARY ARTERY CATHETER (10/17/2025 2:36 PM EST) Slade Sheehan DO - 10/17/2025 2:36 PM EST Slade Owusu DO 10/17/2025 2:37 PM Pulmonary Artery Catheter Date/Time: 10/17/2025 2:36 PM Performed by: Slade Owusu DO Authorized by: Slade Munoz MD Verbal consent obtained?: Yes Consent given by: Patient Risks and benefits: Risks, benefits and alternatives were discussed Patient states understanding of procedure being performed: Yes PA catheter indications: Hemodynamic monitoring Location at time of catheter placement: OR Conditions of catheter placement: Sterile Preparation: Skin prepped with 2% chlorhexidine Local anesthetic: None Catheter type: Pulmonary artery catheter Location: Right internal jugular Number of attempts: 1 Successful introducer placement: Yes PA catheter advanced: While monitoring the appropriate wave patterns on the bedside monitor PA catheter position at introducer hub (cm): 45 Chest x-ray ordered: To be done by ICU team post op PA catheter complications: None Slade Munoz MD IV THERAPY ORDERABLES Final Resu lt * CENTRAL LINE SINGLE LUMEN PERFORMABLE, ANESTHESIA DUAL LUMEN INTRODUCER (MAC) CENTRAL LINE KIT (10/17/2025 2:36 PM EST) Slade Sheehan DO - 10/17/2025 2:36 PM EST Slade Owusu DO 10/17/2025 2:36 PM Central Line Date/Time: 10/17/2025 2:36 PM Performed by: Slade Owusu DO Authorized by: Slade Munoz MD Verbal consent obtained?: Yes Consent given by: Patient Risks and benefits: Risks, benefits and alternatives were discussed Patient states understanding of procedure being performed: Yes Time out: Immediately prior to the procedure a time out was called Catheter type: 9F dual lumen introducer (MAC) Indications: Vascular access Local anesthetic: None Location at time of line placement: OR Conditions of line placement: Sterile Preparation: Skin prepped with 2% chlorhexidine Catheter fully inserted (hub at the skin): Yes Insertion guided by: Ultrasound guided Number of attempts: 1 Successful placement: Yes Sutured: Yes Post Procedure Chest x-ray ordered: To be done by ICU team post op Complications: none Slade Munoz MD PROCEDURE/MINOR SURGICAL ORDERAB LES Final Result * Insert Arterial Line (10/17/2025 2:15 PM EST) Slade Orourke MD - 10/17/2025 2:15 PM EST Salde Munoz MD 10/19/2025 9:29 AM Insert Arterial Line Date/Time: 10/17/2025 2:15 PM Performed by: Evelio Jones MD Authorized by: Slade Munoz MD Verbal consent obtained?: Yes Written consent obtained?: Yes Consent given by: Patient Risks and benefits: Risks, benefits and alternatives were discussed Patient states understanding of procedure being performed: Yes Indications: Indications: hemodynamic monitoring Pre-procedure details: Skin preparation: Chlorhexidine Sedation: Sedation type: Deep Anesthesia: Anesthesia method: None Procedure details: Laterality: Right Location: Radial artery Catheter type: 20g short Placement technique: Ultrasound guided Number of attempts: 1 Transducer: waveform confirmed Post-procedure details: Post-procedure: Secured with tape, sterile dressing applied and sutured Result [facility] Slade Munoz MD IV THERAPY ORDERABLES Final Resu lt documented in this encounter Visit Diagnoses * Transfer of Care - Ann Blackwell MD - 10/17/2025 10:44 PM EST Anesthesia Transfer of Care Note Patient: David Pop Procedure(s) Performed: Procedure(s): TRANSPLANT LIVER Patient location: ICU Anesthesia type: general Airway Device on Arrival to PACU/ICU: Endotracheal Tube IV Access: Peripheral and Central Line Monitors Recommended to be Used During PACU/ICU: Arterial Line, CVP, PA Catheter, and Standard Monitors Outstanding Issues to Address: Hemodynamics Level of Consciousness: sedated Post vital signs: Vitals: 10/17/25 2244 BP: 123/78 Pulse: 98 Resp: 12 Temp: 97.5 ??F SpO2: 100% Complications: No notable events documented. Date 10/16/25 1500 - 10/17/25 0659(Not Admitted) 10/17/25 0700 - 10/18/25 0659 Shift 0283-4302 8967-5769 24 Hour Total 5730-8521 0079-4668 3132-1575 24 Hour Total INTAKE I.V. 8000(80.2) 8000(80.2) Volume (mL) (electrolyte-R (pH 7.4) (NORMOSOL-R pH [...] Volume (Transfuse Fresh Frozen Plasma) 300 300 IV Piggyback 120 850 970 Volume (mL) (methylPREDNISolone sodium succinate (SOLU-medrol) 500 mg in sodium chloride 0.9 % 100 mL IVPB) 100 100 Volume (mL) (AMPicillin 2 g in sodium chloride 0.9% 100 mL IVPB (Ohjq1Afv)) 100 200 300 Volume (mL) (albumin human bottle 5%) 500 500 Volume (mL) (albumin human bottle 25%) 50 50 Volume (mL) (cefTRIAXone (ROCEPHIN) 2 g in sodium chloride 0.9% 20 mL IV Push) 20 20 Shift Total(mL/kg) 120(1.2) 47150(138.3) 22292(139.5) OUTPUT Urine 1850 1850 Urine 1850 1850 Urine Occurrence 1 x 1 x Blood 63128 32240 Est Blood Loss 94906 67251 Shift Total(mL/kg) 41002(128.8) 86613(128.8) Weight (kg) 99.8 99.8 99.8 99.8 documented in this encounter Administered Medications Inactive Administered Medications - up to 3 most recent administrations Medication Order MAR Action Action Date Dose Rate Site albumin human bottle 25% Intravenous, Administer over 60 Minutes, Continuous - One Step Medications Only, Starting on Wed10/17/25 at 1737, Anesthesia Intra-op New Bag 10/17/2025 5:37 PM EST albumin human bottle 5% Intravenous, Continuous - One Step Medications Only, Starting on Wed10/17/25 at 1509, Anesthesia Intra-op New Bag 10/17/2025 3:09 PM EST AMPicillin 2 g in sodium chloride 0.9% 100 mL IVPB (Chho5Tyc) 2 g, Intravenous, at 200 mL/hr, Once, On Wed10/17/25 at 1000, For 1 dose, Begin infusion 20-60 minutes prior to incision Use [id number] Adapter - Mix Thoroughly Before Administration, Pre-op New Bag 10/17/2025 8:43 PM EST 2 g New Bag 10/17/2025 5:23 PM EST 2 g New Bag 10/17/2025 2:08 PM EST 2 g calcium chloride injection Intravenous, PRN - One Step Medication Only, Starting on Wed10/17/25 at 1541, Anesthesia Intra-op Given 10/17/2025 5:32 PM EST 1 g Given 10/17/2025 5:28 PM EST 1 g Given 10/17/2025 4:10 PM EST 0.5 g cefTRIAXone (ROCEPHIN) 2 g in sodium chloride 0.9% 20 mL IV Push 2 g, Intravenous, at 240 mL/hr, Once, On Wed10/17/25 at 1000, For 1 dose, Begin infusion 20-60 minutes prior to incision ADMINISTER IV PUSH. Infuse over 5 minutes. Draw up 20 mL Sodium Chloride 0.9% into empty syringe. Inject 20 mL into vial of Ceftriaxone. Shake well. Withdraw volume into syringe and administer immediately., Pre-op New Bag 10/17/2025 2:08 PM EST 2 g dextrose 50 % in water (D50W) iv Syrg Intravenous, PRN - One Step Medication Only, Starting on Wed10/17/25 at 1747, Anesthesia Intra-op Given 10/17/2025 5:47 PM EST 25 mLs electrolyte-R (pH 7.4) (NORMOSOL-R pH 7.4) IV solution Intravenous, Continuous - One Step Medications Only, Starting on Wed10/17/25 at 1349, Anesthesia Intra-op New Bag 10/17/2025 9:40 PM EST New Bag 10/17/2025 8:32 PM EST New Bag 10/17/2025 7:14 PM EST EPINEPHrine (ADRENALIN) 10 mg in sodium chloride 0.9 % 250 mL infusion Intravenous, at 0-22.5 mL/hr, Continuous, Starting on Wed10/17/25 at 1030, For 24 hours, FOR O.R. USE ONLY. Titrate in O.R. based on MAP and/or ventricular function. CENTRAL LINE PREFERRED: Peripheral line may be used for urgent initiation prior to placement of central line., Intra-op, To be given: intra-op Rate/Dose Change 10/17/2025 6:55 PM EST 1 mcg/min 1.5 mL/hr New Bag 10/17/2025 5:32 PM EST 2 mcg/min 3 mL/hr EPINEPHrine 10 mcg/mL in D5W 10 mL IV syringe Intravenous, PRN - One Step Medication Only, Starting on Wed10/17/25 at 1458, Anesthesia Intra-op Given 10/17/2025 2:58 PM EST 10 mcg fentaNYL (SUBLIMAZE) injection Intravenous, PRN - One Step Medication Only, Starting on Wed10/17/25 at 1349, Anesthesia Intra-op Given 10/17/2025 1:49 PM EST 50 mcg furosemide (LASIX) injection Intravenous, PRN - One Step Medication Only, Starting on Wed10/17/25 at 1956, Anesthesia Intra-op Given 10/17/2025 7:56 PM EST 40 mg glycopyrrolate (ROBINUL) injection Intravenous, PRN - One Step Medication Only, Starting on Wed10/17/25 at 1459, Anesthesia Intra-op Given 10/17/2025 10:42 PM EST 0.6 mg Given 10/17/2025 2:59 PM EST 0.4 mg heparin (porcine) injection Subcutaneous, PRN - One Step Medication Only, Starting on Wed10/17/25 at 1411, Anesthesia Intra-op Given 10/17/2025 2:11 PM EST 5,000 Units heparin (porcine) injection Intravenous, PRN - One Step Medication Only, Starting on Wed10/17/25 at 1706, Anesthesia Intra-op Given 10/17/2025 5:06 PM EST 3,000 Units insulin (HumuLIN R) infusion - TITRATABLE NURSING PROTOCOL (HYPERGLYCEMIA) 0-28 Units/hr (0-28 mL/hr), Intravenous, Continuous, Starting on Wed10/17/25 at 1030, For 24 hours, FOR O.R. USE only. Titrate in O.R. for blood glucose management HIGH ALERT MEDICATION, Intra-op, To be given: intra-op Rate/Dose Change 10/17/2025 8:44 PM EST 2 Units/hr 2 mL/hr New Bag 10/17/2025 7:50 PM EST 1 Units/hr 1 mL/hr lidocaine (PF) 2% (20 mg/mL) Soln Epidural, PRN - One Step Medication Only, Starting on Wed10/17/25 at 1349, Anesthesia Intra-op Given 10/17/2025 1:49 PM EST 100 mg methylPREDNISolone sodium succinate (SOLU-medrol) 500 mg in sodium chloride 0.9 % 100 mL IVPB 500 mg, Intravenous, at 200 mL/hr, Once, On Wed10/17/25 at 1000, For 1 dose, Pharmacy: DO NOT mix until patient is called to the pre-op area. To be infused in the OR., Administer over 30 Minutes, Pre-op New Bag 10/17/2025 5:23 PM EST 500 mg midazolam (PF) (VERSED) injection Intravenous, PRN - One Step Medication Only, Starting on Wed10/17/25 at 1338, Anesthesia Intra-op Given 10/17/2025 1:38 PM EST 2 mg neostigmine methylsulfate (PROSTIGMIN) IV solution Intravenous, PRN - One Step Medication Only, Starting on Wed10/17/25 at 2242, Anesthesia Intra-op Given 10/17/2025 10:42 PM EST 4 mg norepinephrine (LEVOPHED) 16 mg/250 mL (64 [...] AM EST 3 mcg/min 2.8 mL /hr norepinephrine (LEVOPHED) injection Intravenous, PRN - One Step Medication Only, Starting on Wed10/17/25 at 1508, Anesthesia Intra-op Given 10/17/2025 10:01 PM EST 8 mcg Given 10/17/2025 8:42 PM EST 8 mcg Given 10/17/2025 7:03 PM EST 8 mcg propofol (DIPRIVAN) infusion 10 mg/mL Intravenous, Continuous - One Step Medications Only, Starting on Wed10/17/25 at 2131, Anesthesia Intra-op New Bag 10/17/2025 9:31 PM EST 40 mcg/kg/min 23.952 mL/hr propofol 10 mg/ml (DIPRIVAN) injection Intravenous, PRN - One Step Medication Only, Starting on Wed10/17/25 at 1349, Anesthesia Intra-op Given 10/17/2025 1:52 PM EST 50 mg Given 10/17/2025 1:49 PM EST 150 mg sodium bicarbonate 50 mEq/50 mL (8.4 %) injection Intravenous, PRN - One Step Medication Only, Starting on Wed10/17/25 at 1747, Anesthesia Intra-op Given 10/17/2025 5:47 PM EST 50 mEq succinylcholine (QUELICIN) injection Intravenous, PRN - One Step Medication Only, Starting on Wed10/17/25 at 1349, Anesthesia Intra-op Given 10/17/2025 1:49 PM EST 140 mg Transfuse Cryoprecipitate Transfusion Rate: Per dept routine STAT, Check Transfusion Rate, Per department routine: wide open unless otherwise specified by provider New Bag 10/17/2025 4:13 PM EST Transfuse Cryoprecipitate Routine New Bag 10/17/2025 4:17 PM EST Transfuse Cryoprecipitate Routine New 10/17/2025 6:18 PM EST Transfuse Cryoprecipitate Routine New 10/17/2025 6:31 PM EST Transfuse Cryoprecipitate Routine New 10/17/2025 8:45 PM EST Transfuse Cryoprecipitate Routine New 10/17/2025 8:49 PM EST Transfuse Fresh Frozen Plasma Routine New 10/17/2025 7:38 PM EST Transfuse Fresh Frozen Plasma Routine New 10/17/2025 7:39 PM EST Transfuse Fresh Frozen Plasma Routine New 10/17/2025 8:05 PM EST Transfuse Fresh Frozen Plasma Routine New 10/17/2025 8:05 PM EST Transfuse Fresh Frozen Plasma Routine 10/17/2025 9:15 PM EST Transfuse Platelets Routine 10/17/2025 4:06 PM EST Transfuse Platelets Routine 10/17/2025 7:03 PM EST Transfuse Platelets Routine 10/17/2025 9:01 PM EST Transfuse RBC Routine 10/17/2025 3:15 PM EST Transfuse RBC Routine 10/17/2025 3:22 PM EST Transfuse RBC Routine 10/17/2025 5:19 PM EST Transfuse RBC Routine 10/17/2025 5:34 PM EST Transfuse RBC Routine 10/17/2025 5:34 PM EST vasopressin (VASOSTRICT) 40 units in sodium chloride 0.9% 100 mL infusion Intravenous, at 3-9 mL/hr, Continuous, Starting on Wed10/17/25 at 1030, For 24 hours, FOR O.R. USE ONLY. Titrate in O.R. based on MAP. CENTRAL LINE PREFERRED, Intra-op, To be given: intra-op Rate/Dose Change 10/17/2025 9:21 PM EST 0.03 Units/min 4.5 mL/hr Rate/Dose Change 10/17/2025 5:37 PM EST 0.04 Units/min 6 m L/hr New 10/17/2025 3:21 PM EST 0.03 Units/min 4.5 mL/hr vecuronium (NORCURON) injection Intravenous, PRN - One Step Medication Only, Starting on Wed10/17/25 at 1357, Anesthesia Intra-op Given 10/17/2025 9:40 PM EST 1 mg Given 10/17/2025 7:16 PM EST 2 mg Given 10/17/2025 5:56 PM EST 2 mg documented in this encounter Additional Health Concerns Assessment Noted Time PHQ-9 Depression Total Score: 8 09/10/20 11:09 AM EDT documented as of this encounter Care Teams Gaming Cashier Relationship Specialty Start Date End Date System, Provider Not In PCP - General 09/10/25 10/24/25 documented as of this encounter
--- OUTSIDE RECORDS SUMMARY | 2025-10-29 07:45 | XMS_ITS | Encounter Summary ---
Author Organization Healthcare Address [address] [place] [address] Care Team Providers Care Blender/Braze Applicator Name Role Phone Ruma Hernández SLEEVE SEPARATOR Unavailable [phone] Chris Medel MD Primary Care Provider [phone] Encounter Details Date Type Department Care Team (Late st Contact Info) Description 07/05/2025 Results Follow-Up [facility] Transplant [facility] [address] [place] [address] Meaghan Le, RN [facility] LIVER [id number] [address] [place] [address] Social History Tobacco Use Types Packs/Day Years [...] often do you attend [facility] or confucianism services? More than 4 times per year 02/19/2025 Do you belong to any clubs o r organizations such as judaism groups, unions, [employer] or athletic groups, or school groups? Yes [...] at all 06/15/2025 [facility] - Occupational Stress Questionnaire [...] drink first t luisa in the morning (EYE-ACETYLENE TORCH BURNER) to steady your nerves or to get rid of a hangover? 0 06/14/2025 CAGE Questionnaire Score 0 025 Utilities Answer Date Recorded In the past 12 months has th [employer], gas, oil, or water [employer] threatened to shut off services in your [...] [facility], [address] [place] [address] Suhail Brock MD [address] [facility] [address] [place] [address] documented as of this encounter Visit Diagnoses [...] documented as of this encounter Care Teams Blender/Braze Applicator Relationship Specialty [place] [address] PCP - General 03/14/25 Ruma Hernández APRN [facility] [address] [place] [address] Referring Physician Gastroenterology 07/30/23 documented as of this encounter
--- OUTSIDE RECORDS SUMMARY | 2025-10-29 07:46 | XMS_ITS | Encounter Summary ---
Author Organization Healthcare Address [address] [place] [address] Care Team Providers Care Chemical Librarian Name Role Phone Ruma Hernández MELT SUPERINTENDANT Unavailable [phone] Chris Medel MD Primary Care Provider [phone] Encounter Details Date Type Department Care Team (Late st Contact Info) Description 10/09/2025 Results Follow-Up [facility] Transplant Center [address] [place] [address] Meaghan Le, RN [facility] LIVER [id number] [address] [place] [address] Social History Tobacco Use Types Packs/Day Years [...] 02/19/2025 How often do you attend [facility] or baptism services? More than 4 times per year 02/19/2025 Do you belong to any clubs o r organizations such as jewish groups, unions, [employer] or athletic groups, or school groups? Yes [...] How often do you attend chur or baptism services? More than 4 times per year [...] 06/15/2025 [facility] [place] [facility] - Occupational Stress Questionnaire Answer Date [...] drink first t luisa in the morning (EYE-STUDENT FINANCE ADVISOR) to steady your nerves or to get rid of a hangover? 0 06/14/2025 CAGE Questionnaire Score 0 025 Utilities Answer Date Recorded In the past 12 months has th e [employer], gas, oil, or water [employer] threatened to shut off services in [...] Upcoming Encounters Date Type Department Care Team ([facility] st Contact Info) Description 11/27/2025 3:45 PM EST Office Visit Medical Office Building Urology [address] [facility], [address] [place] [address] Suhail Brock MD [address] [facility] [address] [place] [address] documented as of this encounter [...] documented as of this encounter Care Teams Chemical Librarian Relationship Specialty [place] [address] PCP - General 03/14/25 Ruma Hernández APRN [address] [facility] [address] [place] [address] Referring Physician Gastroenterology 07/30/23 documented as of this encounter
--- OUTSIDE RECORDS SUMMARY | 2025-10-29 07:46 | XMS_ITS | Encounter Summary ---
Author Organization [facility] Address [address] [place] [address] Care Team Providers Care Cloth Shrinking Machine Operator Helper Name Role Phone System, Provider Not [...] release of HIV test results or diagnoses. [id number] Health Encounter Details Date Type Department Care Team (Late st Contact Info) Description 10/18/2025 Chart Note [facility] Liver Transplant at [address] [address] Rosangela Lewis, RN I have verified that the donor serologies entered in [a]list games match the donor Social History Tobacco Use [...] verified that the donor serologies entered in [facility] match the donor serologies that are listed in [facility]. documented in this encounter Plan of Treatment Not on file documented as of this encounter Visit Diagnoses Not on filedocumented in this encounter Additional Health Concerns Assessment Noted Time PHQ-9 Depression Total Score: 8 09/10/20 11:09 AM EDT documented as of this encounter Care Teams Cloth Shrinking Machine Operator Helper Relationship Specialty Start Date End Date System, Provider Not In PCP - General 09/10/25 10/24/25 documented as of this encounter
--- OUTSIDE RECORDS SUMMARY | 2025-10-29 07:46 | XMS_ITS | Encounter Summary ---
Author Organization [facility] Address [address] [place] [address] Care Team Providers Care Kennel Staff Member Name Role Phone Ruma Hernández SURVEY CAD TECHNICIAN Unavailable [phone] Chris Medel MD Primary Care Provider [phone] Reason for Visit * Reason Onset Date Comments HCN - Patient Message 10/15/2025 Encounter Details Date Type Department Care Team ([facility] Contact Info) Description 10/15/2025 Telephone [facility] Nephrology[facility] Mineral Met[facility] [address], [address] [place] [address] Moustapha Katz MD [address] [place] [address] HCN - Patient Message Social [...] you attend [facility] or islam services? More than 4 times per year 02/19/2025 Do you belong to any clubs o r organizations such as temple groups, unions, [employer] or athletic groups, or school groups? Yes [...] you attend [facility] or islam services? More than 4 times per year 06/15/2025 Do you belong to any clubs o r organizations such as temple groups, unions, [employer] or athletic groups, or school groups? Yes [...] and heating? Not hard at all 06/15/2025 [facility] [place] [facility] - Occupational Stress [...] first t luisa in the morning (EYE-COOK HELPER JUICE) to steady your nerves or to get rid of a hangover? 0 06/14/2025 CAGE Questionnaire Score 0 025 Utilities Answer Date Recorded In the past 12 months has th e [employer], gas, oil, or water company threatened to [...] r/s his 10/18 visit. Best contact number: [phone] (mobile) Optimal time of day to reach caller: ANYTIME Additional comments/information from caller: Note: Please do not reply to this message. Follow-up communication and further actions as a result of this message need to be communicated with the patient directly, if the patient is not active onMyChart. If the patient is active on MyChart, they will receive notification of the communication/outcome via [employer]. documented in this encounter Plan of Treatment Upcoming Encounters Date Type Department Care Team (Late st Contact Info) Description 11/27/2025 3:45 PM EST Office Visit Medical Office Building Urology [address], [address] [place] [address] Suhail Brock MD [address] [place] [address] documented as of this encounter [...] documented as of this encounter Care Teams Kennel Staff Member Relationship Specialty [place] [id number] PCP - General 03/14/25 Ruma Hernández APRN [address] [place] [address] [address] [place] [address] Referring Physician Gastroenterology 07/30/23 documented as of this encounter
--- OUTSIDE RECORDS SUMMARY | 2025-10-29 07:46 | XMS_ITS | Encounter Summary ---
Author Organization [facility] Address [address] [place] [address] Care Team Providers Care Geometry Tutor Name Role Phone System, Provider Not In [...] release of HIV test results or diagnoses. [id number] Reason for Visit * Reason Comments Appointment Advice Only Encounter Details Date Type Department Care Team (Late st Contact Info) Description 10/17/2025 Telephone [facility] Kidney Transplant at [address] [address] Lore Burgos MA Appointment; Advice [...] in the hospital Please call Stacy at [phone] documented in this encounter Plan of Treatment Not on file documented as of this encounter Visit Diagnoses Not on filedocumented in this encounter Additional Health Concerns Assessment Noted Time PHQ-9 Depression Total Score: 8 09/10/20 11:09 AM EDT documented as of this encounter Care Teams Geometry Tutor Relationship Specialty Start Date End Date System, Provider Not In PCP - General 09/10/25 10/24/25 documented as of this encounter
--- OUTSIDE RECORDS SUMMARY | 2025-10-29 07:46 | XMS_ITS | Encounter Summary ---
Author Organization [facility] Address [address] [place] [address] Care Team Providers Care Business Relationship Manager Name Role Phone System, Provider Not [...] release of HIV test results or diagnoses. [id number] Reason for Visit * Reason Comments Transitions Of Care Encounter Details Date Type Department Care Team (Late st Contact Info) Description 10/18/2025 Pharmacy Services [facility] at [address] [address] Dory Hannah RPh Social History Tobacco Use [...] this encounter Progress Notes * Dory Hannah, [facility] ED - 10/18/2025 8:35 AM EST Transitions of Care Patient's prescriptions were sent to [facility] for a Transplant benefits review. David Pop received a Liver Transplant on 10/17/25 at [facility]. The patient's discharge medications were sent to [facility] for anticipated dischargeof 10/22/25. The patient has a [employer] commercial insurance plan to cover prescriptions. Currently, [...] in any of the prescriptions sent to [facility]. Medication Discharge Service will deliver all medications that they are able to fill to patient's bedside prior to discharge from hospital. Transplant team will provide education to the patient priorto discharge from the hospital. The patient has been referred to the [facility] Transplant Team. The patient should visit Medication Access for assistance if problems arise with the prescriptions. If questions arise regarding discharge medications, please call [phone]. Rosario Hannah PharmD Transitions of Care Pharmacist [phone] documented in this encounter Plan of Treatment Not on file documented as of this encounter Visit Diagnoses Not on filedocumented in this encounter Additional Health Concerns Assessment Noted Time PHQ-9 Depression Total Score: 8 09/10/20 11:09 AM EDT documented as of this encounter Care Teams Business Relationship Manager Relationship Specialty Start Date End Date System, Provider Not In PCP - General 09/10/25 10/24/25 documented as of this encounter
--- OUTSIDE RECORDS SUMMARY | 2025-10-29 07:46 | XMS_ITS | Encounter Summary ---
Author Organization [facility] Address [address] [place] [address] Care Team Providers Care Varnish Inspector Name Role Phone System, Provider Not [...] release of HIV test results or diagnoses. [id number] Health Encounter Details Date Type Department Care [...] in a senior care (including now)? No 10/17/2025 Utilities Answer Date [...] documented as of this encounter Care Teams Varnish Inspector Relationship Specialty Start Date End Date System, Provider Not In PCP - General 09/10/25 10/24/25 documented as of this encounter
--- OUTSIDE RECORDS SUMMARY | 2025-10-29 07:46 | XMS_ITS | Encounter Summary ---
Author Organization [facility] Address [address] [place] [address] Care Team Providers Care Casing Runner Name [...] release of HIV test results or diagnoses. [id number] Health Encounter Details Date Type Department Care Team (Late st Contact Info) Description 10/18/2025 Chart Note [facility] Liver Transplant at [address] [address] Giovanna June, RN I introduced myself as inpatient liver home health care coordinator, explained Social History Tobacco Use Types [...] any time in the past 12 m [facility], were you homeless or living [...] EST I introduced myself as inpatient liver home health care coordinator, explained role and provided my contact [...] Transplant were provided. I encouraged them all toreview the information before our education session. I plan to meet with patient and caregiver teamfor additional transplant education and reinforcement on 10/19/25 [...]
--- OUTSIDE RECORDS SUMMARY | 2025-10-29 07:46 | XMS_ITS | Encounter Summary ---
Author Organization [facility] Address [address] [place] [address] Care Team Providers Care Hand Rug Braider Name Role Phone System, Provider Not In [...] release of HIV test results or diagnoses. [id number] Health Encounter Details Date Type Department Care Team (Late st Contact Info) Description 10/17/2025 Chart Note [facility] Liver Transplant at [address] [address] Maeve Hubbard, RN Per Dr Drew, patient [...] in a senior living (including now)? No 10/17/2025 Utilities Answer Date [...] as of this encounter Care Teams Hand Rug Braider Relationship Specialty Start Date End Date System, Provider Not In PCP - General 09/10/25 10/24/25 documented as of this encounter
--- OUTSIDE RECORDS SUMMARY | 2025-10-29 07:46 | XMS_ITS | Encounter Summary ---
Author Organization [facility] Address [address] [place] [address] Care Team Providers Care Oven Operator Name Role Phone Ruma Hernández STATION CHIEF Unavailable [phone] Chris Medel MD Primary Care Provider [phone] Encounter Details Date Type Department Care Team (Late st Contact Info) Description 10/16/2025 Results Follow-Up [facility] [address] [place] [id number] Meaghan Le, RN [facility] LIVER [id number] [place] [address] Social History Tobacco Use Types Packs/Day Years [...] often do you attend [employer] or voodoo services? More than 4 times per year 02/19/2025 Do you belong to any clubs o r organizations such as gnosticist groups, unions, [employer] or athletic groups, or school groups? Yes [...] at all 06/15/2025 [facility] - Occupational Stress Questionnaire Answer Date [...] drink first t luisa in the morning (EYE-DIVING COACH) to steady your nerves or to get rid of a hangover? 0 06/14/2025 CAGE Questionnaire Score 0 025 Utilities Answer Date Recorded In the past 12 months has th e [employer], gas, oil, or water [employer] threatened to shut off services in your [...] [address] [facility], [address] [place] [address] Suhail Brock MD [address] [place] [address] documented as of this encounter [...] documented as of this encounter Care Teams Oven Operator Relationship Specialty [place] [address] PCP - General 03/14/25 Ruma Hernández APRN [address] [facility] [address] [place] [address] Referring Physician Gastroenterology 07/30/23 documented as of this encounter
--- OUTSIDE RECORDS SUMMARY | 2025-10-29 07:46 | XMS_ITS | Clinical Summary ---
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 Chris Medel MD Primary Care Provider + Source Comments This information has been disclosed [...] therelease of HIV test results or diagnoses. [id number] Allergies Active Allergy Reactions Criticality Noted Date [...] 5 3:31 PM EST 10/22/20 25 Active NIFEdipine (PROCARDIA-XL) 30 MG (OSM) 24 [...] (40 mg total) by mouth daily. 03/13/20 24 025 Discontinued omeprazole (PRILOSEC) 20 MG capsule Take 2 capsules (40 mg total) by mouth daily. 03/14/20 25 025 Discontinued(St op Taking at Discharge) spironolactone (ALDACTONE) 50 MG tablet Take 3 tablets (150 mg total) by mouth daily. 03/13/20 025 Discontinued(St op Taking at Discharge) calcitRIOL (ROCALTROL) 0.25 MCG capsule Take 1 capsule (0.25 mcg total) by mouth. Take 1 capsule by mouth 5 times a week. Once daily Wednesday through Wednesday08/08/20 25 025 Discontinued(St op Taking at Discharge) tacrolimus (PROGRAF) 1 MG capsule Take 10 capsules (10 mg total) by mouth 2 times a day. 600 capsule 5 10/18/20 25 025 Discontinued predniSONE (DELTASONE) 5 MG tablet Take 4 tablets (20 mg total) by mouth daily. 120 tablet 2 10/18/20 25 Discontinued insulin lispro 100 unit/mL InPn Administer insulin with meals per sliding scale: Blood glucose 150-199 mg/dL= 2 units, Blood glucose 200-249 mg/dL= 4 units, Blood glucose 250-299 mg/dL= 7 units, Blood glucose 300-349 mg/dL = 10 units, Blood glucose >349 mg/dL = 12 units 15 mL 2 10/18/20 25 Discontinued apixaban (ELIQUIS) 2.5 mg Tab Take 1 tablet (2.5 mg total) by mouth 2 times a day. 60 tablet 10/18/20 025 Discontinued(St op Taking at Discharge) oxyCODONE (ROXICODONE) 5 MG immediate release tabletIndicati ons:S/P liver transplant (CMS-HCC) Take 1 tablet (5 mg total) by mouth every 8 hours as needed for up to 3 days. 9 tablet 5 3:31 PM EST 10/22/20 potassium phosphate, monobasic, (K-PHOS) 500 mg tablet dissolve 1 tablet (500 mg total) in 6 to 8 ounces of water and drink by mouth 2 times a day. 60 tablet 10/22/20 25 025 Discontinued(St op Taking at Discharge) Active Problems [...] Encounters Date Type Department Care Team Description 10/25/2025 Telephone [facility] Liver Transplant at [address] [phone] Giovanna June, RN 10/25/2025 Telephone [facility] Liver Transplant at [address] [place] [phone] Pita Pike MA 10/25/2025 Orders Only [facility] Liver Transplant at [address] [place] [phone] 02 Felice Nugent III, MD 10/24/2025 Chart Note [facility] Liver Transplant at [address] [place] [phone] Pita Pike MA FK pend [facility] 10/24/2025 Telephone [facility] Liver Transplant at [address] [place] [phone] Linn Tiwari MA 10/23/2025 Orders Only [facility] Liver Transplant at [address] [place] [address] Giovanna June RN Liver replaced by transplant ([facility]-HCC) (Primary Dx) 10/22/2025 Chart Note [facility] Liver Transplant at [address] [place] [phone] Cori Womack, JudyD Liver Transplant Pharmacy Discharge Note 10/22/2025 Orders Only [facility] Liver Transplant at [address] [place] [phone] Ruma Benjamin, SILVIO S/P liver transplant ([facility]-HCC) (Primary Dx); Immunosuppression ([facility]-HCC) 10/22/2025 Orders Only [facility] Liver Transplant at [address] [place] [phone] Felice Nugent III, MD Liver replaced by transplant ([facility]-HCC) (Primary Dx); Immunosuppressive management encounter following liver transplant ([facility]-HCC) 10/19/2025 Education Chart Note [facility] Liver Transplant at [address] [place] [phone] Giovanna June RN 10/18/2025 Chart Note [facility] Kidney Transplant at [address] [place] [phone] Ailin Wells Txvivian Patient Called In 10/18/2025 Pharmacy Services [facility] Outpatient Pharmacy at [address] [place] [phone] Dory Hannah RPh 10/18/2025 Chart Note [facility] Liver Transplant at [address] [place] [phone] Giovanna June, RN I introduced myself as inpatient liver brownfield program coordinator, explained 10/18/2025 Chart Note [facility] Liver Transplant at [address] [place] [phone] Rosangela Lewis, RN I have verified that the donor serologies entered in Epic match the donor 10/17/2025 1:37 PM EST Anesthesia Event [facility] [address] [facility] [place] [address] Oskar Torres MD Edwards, Anna, MD 10/17/2025 12:00 PM EST - 10/17/2025 8:12 PM EST Surgery [facility] [address] [place] [address] Vani Drew MD TRANSPLANT LIVER 10/17/2025 8:52 AM EST - 10/22/2025 4:06 PM EST Hospital Encounter [facility] [address] [place] [address] Vani Drew MD S/P liver transplant (CMS-HCC) (Primary Dx); End stage liver disease ([facility]-HCC) Discharge Disposition: Home WITH Home Health Care Services 10/17/2025 Chart Note [facility] Liver Transplant at [address] [place] [phone] Maeve Hubbard RN Per Dr Drew, patient received whole liver with no extra vessels on 10/17/2025 Telephone [facility] Kidney Transplant at [address] [place] [phone] Lore Burgos MA Appointment; Advice Only 10/17/2025 Travel 10/17/2025 Telephone [facility] Liver Transplant at [address] [place] [address] Joslyn Faulkner, SILVIO 10/03/2025 Telephone [facility] Liver Transplant at [address] [place] [address] Pb Sy, RN 10/03/2025 Chart Note [facility] Kidney Transplant at [address] [place] [address] Ailin Wells Organ: Liver 10/03/2025 Telephone [facility] Liver Transplant at [address] [phone] Pb Sy, RN Appointment 09/25/2025 Telephone [facility] Liver Transplant at [address] [phone] Chapito Alcantar, SILVIO 09/25/2025 Chart Note [facility] Liver Transplant at [address] [phone] Chapito Alcantar, RN UNOS VERIFICATION CHECK FORM 09/25/2025 Chart Note [facility] Kidney Transplant at [address] [place] [address] Ailin Wells Authorization for listing 09/24/2025 1:00 PM EST Office Visit [facility] Liver Transplant at [address] [address] Nigel Reaves MD Esophageal varices without bleeding, unspecified esophageal varices type (CMS-HCC) (Primary Dx); Alcoholic cirrhosis of liver with ascites (CMS-HCC); Hepatic encephalopathy (CMS-HCC); Pre-transplant evaluation for chronic liver disease; Ascites due to alcoholic cirrhosis (CMS-HCC) 09/24/2025 Orders Only [facility] Liver Transplant at [address] [address] Chapito Alcantar, RN Alcoholic cirrhosis of liver with ascites (CMS-HCC) (Primary Dx); Pre-transplant evaluation for chronic liver disease 09/24/2025 Chart Note [facility] Kidney Transplant at [address] [phone] Ailin Wells Called local office again to get status of listing auth request. Spoke to 09/21/2025 Refill [facility] I.D.C[facility] at [facility] [address] [phone] Arturo Gibson, RN 09/20/2025 Telephone [facility] Liver Transplant at [address] [phone] Cori Dover MA 09/20/2025 Chart Note [facility] Liver Transplant at [address] [phone] Chapito Alcantar, RN Spoke with patient's spouse and updated her on current bed situation. 09/19/2025 Telephone [facility] Liver Transplant at [address] [address] Chapito Alcantar, SILVIO 09/18/2025 Pharmacy Services [facility] [address] [place] [phone] Delaney Bahena, RXT 09/17/2025 Refill [facility] at [facility] [address] [facility] [address] [address] Johnny Dubois RN 09/17/2025 Telephone [facility] at [facility] [address] [facility] [address] [phone] Navi Sims MD 09/13/2025 Chart Note [facility] Liver Transplant at [address] [phone] Chapito Alcantar, RN Multi-disciplinary Hepatobiliary Case Conference Review: 09/11/2025 Telephone [facility] Liver Transplant at [address] [address] Chapito Alcantar, RN 09/11/2025 Chart Note [facility] Kidney Transplant at [address] [phone] Ailin Wells Faxed Clinical for Listing/Txp Auth 09/11/2025 Telephone [facility] Liver Transplant at [address] [address] Chapito Alcantar, RN 09/10/2025 4:35 PM EDT [facility] [address] [place] [phone] Buddy Zimmerman MD Alcoholic cirrhosis of liver with ascites (CMS-HCC); Pre-transplant evaluation for chronic liver disease 09/10/2025 2:00 PM EDT Office Visit [facility] Liver Transplant at [address] [phone] Unknown, Attending Provider Navi Sims MD Pre-transplant evaluation for chronic liver disease (Primary Dx); Encounter for pre-transplant evaluation for liver transplant 09/10/2025 1:30 PM EDT Office Visit [facility] Liver Transplant at [address] [phone] Lane Troy MD Alcoholic cirrhosis of liver with ascites (CMS-HCC) (Primary Dx); Pre-transplant evaluation for chronic liver disease 09/10/2025 1:00 PM EDT Office Visit [facility] Liver Transplant at [address] [phone] Buddy Zimmerman MD Pre-transplant evaluation for chronic liver disease (Primary Dx); Alcoholic cirrhosis of liver with ascites (CMS-HCC) 09/10/2025 12:00 PM EDT Office Visit [facility] Anesthesia Transplant at [address] [place] [phone] Unknown, Attending Provider Stefan Gonzalez MD Pre-transplant evaluation for chronic liver disease (Primary Dx) 09/10/2025 10:03 AM EDT - 09/10/2025 11:59 PM EDT Hospital Encounter [facility] [address] [place] [address] Nigel Reaves MD Pre-transplant evaluation for chronic liver disease Discharge Disposition: Home or Self Care WITHOUT Home Care Services 09/10/2025 Social Work [facility] Liver Transplant at [address] [place] [address] Michelle Ho MSW, TELECOMMUNICATION EQUIPMENT REPAIRER 09/10/2025 Nutrition [facility] Kidney Transplant at [address] [place] [address] Oskar Arango, RD 09/10/2025 Chart Note [facility] Liver Transplant at [address] [place] [address] Chapito Alcantar, SILVIO Alcoholic cirrhosis of liver with ascites (CMS-HCC) (Primary Dx); Pre-transplant evaluation for chronic liver disease 09/08/2025 8:34 PM EDT - 09/08/2025 11:59 PM EDT Hospital Encounter [facility] Radiology [address] [place] [phone] System, Provider Not In Discharge Disposition: Home or Self Care WITHOUT Home Care Services 09/08/2025 8:34 PM EDT - 09/08/2025 11:59 PM EDT Hospital Encounter [facility] Radiology [address] [place] [address] System, Provider Not In Discharge Disposition: Home or Self Care WITHOUT Home Care Services 09/08/2025 8:31 PM EDT - 09/08/2025 8:33 PM EDT Hospital Encounter [facility]iology [address] [place] [address] System, Provider Not In Discharge Disposition: Home or Self Care WITHOUT Home Care Services 09/08/2025 8:31 PM EDT - 09/08/2025 8:33 PM EDT Hospital Encounter [facility]iology [address] [place] [address] System, Provider Not In Discharge Disposition: Home or Self Care WITHOUT Home Care Services 09/05/2025 Telephone [facility] Liver Transplant at [address] [address] Chapito Alcantar, SILVIO 09/05/2025 Telephone [facility] Liver Transplant at [address] [phone] Cori Dover MA 09/05/2025 Abstract [facility] Liver Transplant at [address] [address] Chapito Alcantar, SILVIO Alcoholic cirrhosis of liver with ascites (CMS-HCC) (Primary Dx); Ascites due to alcoholic cirrhosis (CMS-HCC); Hepatic encephalopathy (CMS-HCC); Esophageal varices without bleeding, unspecified esophageal varices type (CMS-HCC); Pre-transplant evaluation for chronic liver disease 08/13/2025 Telephone [facility] Liver Transplant at [address] [phone] Cori Dover MA 08/13/2025 Telephone [facility] Liver Transplant at [address] [phone] Cori Dover MA 08/13/2025 Orders Only [facility] Liver Transplant at [address] [address] Chapito Alcantar, SILVIO Pre-transplant evaluation for chronic liver disease (Primary Dx) 08/13/2025 Chart Note [facility] Kidney Transplant at [address] [place] [address] Ailin Wells Patient is financially cleared for liver transplant evaluation 08/02/2025 Chart Note [facility] Liver Transplant at [address] [place] [address] Cori Dover MA Liver transplant referral entered. 08/01/2025 Chart Note [facility] Liver Transplant at [address] [place] [address] Chapito Alcantar, music composition teacher for liver transplant was received and reviewed. The review notes 07/31/2025 Telephone [facility] Liver Transplant at [address] [place] [address] Chapito Alcantar, SILVIO from Last 3 Months [...] this topic Medical Devices Implanted Type Area Inspector Wire Products Device Identifier Shelf Expiration Date Model / Serial / Lot Liver Implanted:Qty: 1 on 10/17/2025 by Vani Drew MD at [facility] Main [id number] / [id number] / [id number] Procedures Procedure Name Priority Date/Time Associated Diagnosis Comments HOX - HLA ANTIBODY-DETAILED REPORT Routine 10/25/2025 11:31 AM EST TACROLIMUS LEVEL Routine 10/24/2025 7:23 AM EST RENAL FUNCTION PANEL W/O EGFR Routine 10/24/2025 7:23 AM EST HEPATIC FUNCTION PANEL Routine 7:23 AM EST CBC AND DIFFERENTIAL Routine 10/24/2025 7:23 AM EST CBC AND DIFFERENTIAL Routine 10/24/2025 7:23 AM EST US DUPLEX [id number] COMPLETE STAT 10/22/2025 10:24 AM EST US [...] Routine 10/18/2025 10:29 AM EST US DUPLEX [id number] COMPLETE STAT 10/18/2025 9:35 AM EST US [...] 08/29/2025 from Last 3 Months Results * Hox - HLA Antibody-Detailed Report (10/25/2025 11:31 AM EST) 10/25/2025 11:3 1 AM EST Felice Nugent III, MD LAB BLOOD ORDERABLE S Final Result Performing Organization Address City/State/[facility] Co de Phone Number [facility] [address] [id number] * Hepatic Function Panel (10/24/2025 7:23 AM EST) Only the most recent of15 resultswithin the time period is included. Bilirubin, Direct 0.4 Bilirubin, Indirect 0.6 Alkaline Phosphatase 149 ALT 210 AST 41 Total Bilirubin 1 Total Protein 4.8 Plasma Historical Provider LAB BLOOD ORDERABLES Nadia l Result * Tacrolimus level (10/24/2025 7:23 AM EST) Only the most recent of5 resultswithin the time period is included. Tacrolimus Lvl 6.4 6 - 15 ng/mL Whole Blood [facility] Provider LAB BLOOD ORDERABLES Nadia l Result * (ABNORMAL) CBC and differential (10/24/2025 7:23 AM EST) Only the most recent of2 resultswithin the time period is included. Lymphocytes Absolute 0.8 / L Monocytes Absolute 0.9 / L Eosinophils Absolute 0.8 / L Basophils Absolute 0 / L Neutrophils Relative 78 46 - 78 % Lymphocytes Relative 6.4(A) 18 - 52 % Monocytes Relative 7.3 3 - 10 % Eosinophils Relative 6.8(A) 0 - 6 % Basophils Relative 0.2 0 - 3 % Neutrophils Absolute 9.1 / L Blood [facility] Provider LAB BLOOD ORDERABLES Nadia l Result * (ABNORMAL) Renal Function Panel w/o EGFR (10/24/2025 7:23 AM EST) Only the most recent of2 resultswithin the time period is included. Glucose 100 BUN 16 CO2 28(A) 13 - 22 mmol/L Creatinine 0.90 Potassium 3.4 Sodium 136 Chloride 105 Phosphorus 3 2.5 - 4.9 mg/dL Calcium 7.7 EGFR 85 mg/dL Albumin 2.3(A) 3.5 - 5.0 g/dL Blood [facility] Provider LAB BLOOD ORDERABLES Nadia l Result * US Duplex Dvx-Xfv-Fdvidja Comp (10/22/2025 10:24 AM EST) Only the [...] EXAM: US ABDOMEN COMPLETE EXAM: US DUPLEX [id number] COMPLETE INDICATION: Post-op liver transplant DATE: 10/22/2025 [...] EXAM: US ABDOMEN COMPLETE EXAM: US DUPLEX [id number] COMPLETE INDICATION: Post-op liver transplant DATE: 10/22/2025 [...] 12:02 PM EST us Jesus Lomeli MD [facility] US ORDERABLES Final Resul [...] EXAM: US ABDOMEN COMPLETE EXAM: US DUPLEX [id number] COMPLETE INDICATION: Post-op liver transplant DATE: 10/22/2025 [...] EXAM: US ABDOMEN COMPLETE EXAM: US DUPLEX [id number] COMPLETE INDICATION: Post-op liver transplant DATE: 10/22/2025 [...] 10/22/2025 12:02 PM EST Jesus Lomeli MD [facility] ORDERABLES Final Resul t * POC Glucose Monitoring Device (10/22/2025 10:23 AM EST) Only the most recent of38 resultswithin the time period is included. POC Glucose Monitoring Device 96 70 - 100 mg/dL 10/22/2025 10:24 AM EST [facility] Blood 10/22/2025 10:2 3 AM EST 10/22/2025 10:23 AM EST Vani Drew MD POINT OF CARE TEST ORDERABLE S Final Result [facility] [address] [facility] * (ABNORMAL) CBC (10/22/2025 5:28 AM [...] [facility] Whole Blood 10/22/2025 5:28 AM EST 10/22/2025 5:42 AM EST us Aspen Parr MD LAB BLOOD ORDERABLES Final Resul t [facility] [address] [facility]. [address] * Phosphorus (10/22/2025 5:28 AM EST) Phosphorus 2.3 2.1 - 4.7 mg/dL 10/22/2025 6:20 AM EST [facility] Plasma 10/22/2025 5:28 AM EST 10/22/2025 5:42 AM EST Aspen Parr MD LAB BLOOD ORDERABLES Final Resul t Performing Organization Address City/[facility]/ZIP Co de Phone Number [facility] [address] [facility] * Magnesium (10/22/2025 5:28 AM EST) Only the most recent of11 resultswithin the time period is included. Magnesium 1.7 1.5 - 2.5 mg/dL 10/22/2025 6:20 AM EST [facility] Plasma 10/22/2025 5:28 AM EST 10/22/2025 5:42 AM EST Aspen Parr MD LAB BLOOD ORDERABLES Final Resul t Performing Organization Address [facility] Co de Phone Number [facility] [address] [facility] * (ABNORMAL) Basic metabolic panel (10/22/2025 5:28 AM EST) Only the most recent of2 resultswithin the time period is included. Sodium 138 133 - 146 mmol/L 10/22/2025 6:20 AM [facility] Potassium 3.2(L) 3.5 - 5.3 mmol/L 10/22/2025 6:20 AM [facility] Chloride 107 98 - 110 mmol/L 10/22/2025 6:20 AM [facility] CO2 25 21 - [...] EST [facility] Glucose 100 70 - 100 [...] Resul t [facility] [address] * (ABNORMAL) Renal Function Panel w/EGFR (10/21/2025 6:35 AM EST) Only the most recent of11 resultswithin the time period is included. Sodium 139 133 - 146 mmol/L 10/21/2025 7:45 AM [facility] Potassium 3.5 3.5 - 5.3 mmol/L 10/21/2025 7:45 AM [facility] Chloride 108 98 - 110 mmol/L 10/21/2025 7:45 AM [facility] CO2 26 21 - 33 mmol/L 10/21/2025 7:45 AM [facility] Comment:High lactate dehydro genase concentrations in patient samples may cause falsely increased bicarbonate results. If markedly elevated LDH is observed or suspected, please assess results in conjunction with patient`s clinical presentation. In cases of discrepant results, consider evaluating CO2 in with a blood gas order. Anion Gap 5 3 - 16 mmol/L 10/21/2025 7:45 AM [facility] BUN 39(H) 7 - 25 mg/dL 10/21/2025 7:45 AM [facility] Creatinine 0.96 0.60 - 1.30 mg/dL 10/21/2025 7:45 AM [facility] Glucose 126(H) 70 - 100 mg/dL 10/21/2025 7:45 AM [facility] Calcium 6.8(L) 8.6 - 10.3 mg/dL 10/21/2025 7:45 AM [facility] Phosphorus 2.8 2.1 - 4.7 mg/dL 10/21/2025 7:45 AM [facility] Albumin 2.2(L) 3.5 - 5.7 g/dL 10/21/2025 7:45 AM [facility] Osmolality, Calculated 299 278 - 305 mOsm/kg 10/21/2025 7:45 AM [facility] EGFR 88 10/21/2025 7:45 AM [facility] Comment:As of 2022, the [...] will be reported as >90mL/min/1.73m2. Reference: Sachin Flannery Kathy M, Rebecca DC, Josue ND, Dee Dee [place], Nazia [place], et al. A Unifying Approach for GFR Estimation: Recommendations of the NKF-ASN Task Force on Reassessing the inclusion of Race in Diagnosing Kidney Disease. Am J Kidney Dis. 2020. Plasma 10/21/2025 6:35 AM EST 10/21/2025 6:58 AM EST us Aspen Parr MD LAB BLOOD ORDERABLES Final Resul t Performing Organization Address City/[facility] Co de Phone Number [facility] [address] * (ABNORMAL) Protime-INR (10/19/2025 11:03 PM [...] ORDERABLES Final Resul t Performing Organization Address City/[facility] Co de Phone Number [facility] [address] [facility] * Lactic Acid (10/18/2025 10:20 PM EST) Only the most recent of5 resultswithin the time period is included. Lactate 0.8 0.5 - 2.2 mmol/L 10/18/2025 11:03 PM EST [facility] Plasma 10/18/2025 10:2 0 PM EST 10/18/2025 10:26 PM EST us Aspen Parr MD LAB BLOOD ORDERABLES Final Resul t [facility] [address] [place] [address], [facility] * Prepare Fresh Frozen Plasma (10/18/2025 11:58 AM EST) Only the most recent of2 resultswithin the time period is included. Product Code G5242T48 HCLL Unit Number [id number] HCLL Dispense Status Released from Crossmatch_RE HCLL Blood Expiration Date HCLL Coding System [id number] HCLL Product Code O8282K30 HCLL Unit Number [id number] HCLL Dispense Status Released from Crossmatch_RE HCLL Blood Expiration Date HCLL Coding System [id number] HCLL Product Code K2725I56 HCLL Unit Number [id number] HCLL Dispense Status Released from Crossmatch_RE HCLL Blood Expiration Date HCLL Coding System [id number] HCLL Product Code I0800A26 HCLL Unit Number [id number] HCLL Dispense Status Released from Crossmatch_RE HCLL Blood Expiration Date HCLL Coding System [id number] HCLL Product Code Y1933P20 HCLL Unit Number [id number] HCLL Dispense Status Released from Crossmatch_RE HCLL Blood Expiration Date HCLL Coding System [id number] HCLL us Attending Provider Unknown BLOOD BANK [...] below level of diaphragms and outside the [id number]-hpxa. Right internal jugular approach pulmonary artery catheter [...] courses below level of diaphragms andoutside the [id number]. Right internal jugular approach pulmonaryartery catheter projects [...] 7:02 AM EST us Aspen Parr MD [facility] DIAGNOSTIC IMAGING ORDERABLE S Final Result * Prepare Platelets, leukoreduced, 1 Units (10/18/2025 6:17 AM EST) Only the most recent of2 resultswithin the time period is included. Product Code C0192U25 HCLL Unit Number [id number] HCLL Dispense Status Presumed Transfused_PT HCLL Blood Expiration Date HCLL Coding System [id number] HCLL Blood Bank Product Oskar Torres MD BLOOD BANK PRODUCT ORDERABLES Final Result HCLL * Prepare RBC, leukoreduced, 5 Units (10/18/2025 6:16 AM EST) Only the most recent of2 resultswithin the time period is included. Product Code J7100W92 HCLL Unit Number [id number] HCLL Dispense Status Presumed Transfused_PT HCLL Blood Expiration Date HCLL Coding System [id number] HCLL Product Code Y0401B09 HCLL Unit Number [id number] HCLL Dispense Status Presumed Transfused_PT HCLL Blood Expiration Date HCLL Coding System [id number] HCLL Product Code X9219Z84 HCLL Unit Number [id number] HCLL Dispense Status Presumed Transfused_PT HCLL Blood Expiration Date HCLL Coding System BQOZ980 HCLL Product Code T6457L57 HCLL Unit Number [id number] HCLL Dispense Status Released from Crossmatch_RE HCLL Blood Expiration Date HCLL Coding System WARR997 HCLL Product Code Y5689J64 HCLL Unit Number [id number] HCLL Dispense Status Presumed Transfused_PT HCLL Blood Expiration Date HCLL Coding System VTTI056 HCLL Blood Bank Product Kassi INTERIANO BLOOD BANK PRODUCT ORDERABLES Final Result HCLL * Prepare Cryoprecipitate (10/18/2025 6:15 AM EST) Only the most recent of5 resultswithin the time period is included. Product Code Q8920S88 HCLL Unit Number [id number] HCLL Dispense Status Presumed Transfused_PT HCLL Blood Expiration Date [facility] Coding System [id number] HCLL us Attending Provider Unknown BLOOD BANK PRODUCT OR DERABLES Final Result [facility] * (ABNORMAL) Blood gas, arterial (10/18/2025 5:19 AM EST) Only the most recent of2 resultswithin the time period is included. O2 Sat, Arterial 97 10/18/2025 5:28 AM EST [facility] FIO2 40 10/18/2025 5:28 AM [facility] pH, Arterial 7.34(L) 7.35 - 7.45 10/18/2025 5:28 AM EST [facility] pCO2, Arterial 48(H) 35 - 45 mm Hg 10/18/2025 5:28 AM [facility] pO2, Arterial 84 80 - 100 mm Hg 10/18/2025 5:28 AM EST [facility] HCO3, Arterial 25 22 - 26 mmol/L 10/18/2025 5:28 AM EST [facility] CO2 Content,Arteri al 27 23 - 27 mmol/L 10/18/2025 5:28 AM [facility] Base Excess, Arterial -0.2 [...] R esult [facility] [address] [place] [address], [facility] [place] * XR Portable Feeding Tube Check (10/17/2025 [...] period is included. Pathologist [facility] Citrated Kaolin Reaction Time (TEGHEPARINASE) 12.7(H) 4.6 [...] degrees 10/18/2025 12:03 AM EST [facility] ORDERABLES Final Resul t Performing Organization Address City/[facility]/ZIP Co de Phone Number [facility] [address] [place] [address]. [address] * Calcium Free, Serum (10/17/2025 10:50 PM EST) Free Calcium, Ser 4.76 4.40 - 5.40 mg/dL 10/17/2025 11:15 PM EST [facility] Comment:Free calcium levels vary inversely [...] determined by [facility] which is certified under the Clinical Laboratory Improvement Amendment of 1988 (CLIA-88) to perform high complexity testing. The test has not been cleared or approved by the US Food and Drug Administration (FDA). The FDA has determined that such clearance is not necessary. The test should be used for clinical purposes and is not regarded as investigational. Duarte Jackson MD LAB BLOOD ORDERABLES Final Result Performing Organization Address City/[facility]/ZIP Co de Phone Number [facility] [address] [facility]. [address] * Fibrinogen (10/17/2025 10:50 PM EST) Only the most recent of6 resultswithin the time period is included. Fibrinogen 253 218 - 406 mg/dL 10/17/2025 11:06 PM EST [facility] Plasma 10/17/2025 10:5 0 PM EST 10/17/2025 10:55 PM EST us Aspen Parr MD LAB BLOOD ORDERABLES Final Resul t Performing Organization Address City/[facility]/ZIP Co de Phone Number [facility] [address] [facility]. [address] * POC Lactate (10/17/2025 9:25 PM EST) Only the most recent of8 resultswithin the time period is included. POC Lactate 1.50 0.50 - 2.20 mmol/L 10/17/2025 9:51 PM EST [facility] Blood, Arterial 10/17/2025 9 :25 PM EST 10/17/2025 9:51 PM EST us Vani Drew MD POINT OF CARE TEST ORDERABLE S Final Result Performing Organization Address [facility] Co de Phone Number [facility] [address] [facility]. [address] * POC TCO2 (10/17/2025 9:25 PM EST) Only the most recent of8 resultswithin the time period is included. POC TCO2, Arterial 23 23 - 27 mmol/L 10/17/2025 9:51 PM EST [facility] Blood, Arterial 10/17/2025 9 :25 PM EST 10/17/2025 9:51 PM EST us Vani Drew MD POINT OF CARE TEST ORDERABLE S Final Result Performing Organization Address City/[facility]/ZIP Co de Phone Number [facility] [address] * POC Sodium (10/17/2025 9:25 PM EST) Only the most recent of8 resultswithin the time period is included. POC Sodium 142 136 - 146 mmol/L 10/17/2025 9:51 PM EST [facility] Blood, Arterial 10/17/2025 9 :25 PM EST 10/17/2025 9:51 PM EST Vani Drew MD POINT OF CARE TEST ORDERABLE S Final Result Performing Organization Address City/[facility] Co de Phone Number [facility] [address] [facility]. [address] * POC Potassium (10/17/2025 9:25 PM EST) Only the most recent of8 resultswithin the time period is included. POC Potassium 3.7 3.5 - 5.3 mmol/L 10/17/2025 9:51 PM EST [facility] Blood, Arterial 10/17/2025 9 :25 PM EST 10/17/2025 9:51 PM EST Vani Drew MD POINT OF CARE TEST ORDERABLE S Final Result Performing Organization Address [facility] Co de Phone Number [facility] [address] [facility]. [address] * (ABNORMAL) POC PO2 (10/17/2025 9:25 PM EST) Only the most recent of8 resultswithin the time period is included. POC pO2, Arterial 161(H) 80 - 100 mm Hg 10/17/2025 9:51 PM EST [facility] Blood, Arterial 10/17/2025 9 :25 PM EST 10/17/2025 9:51 PM EST Vani Drew MD POINT OF CARE TEST ORDERABLE S Final Result Performing Organization Address City/[facility] Co de Phone Number [facility] [address] [facility]. [address] * POC PCO2 (10/17/2025 9:25 PM EST) Only the most recent of8 resultswithin the time period is included. POC pCO2, Arterial 38 35 - 45 mm Hg 10/17/2025 9:51 PM EST [facility] Blood, Arterial 10/17/2025 9 :25 PM EST 10/17/2025 9:51 PM EST Vani Drew MD POINT OF CARE TEST ORDERABLE S Final Result Performing Organization Address City/[facility]/ZIP Co de Phone Number [facility] [address] [facility]. [address] * (ABNORMAL) POC O2 SAT (10/17/2025 [...] ORDERABLE S Final Result Performing Organization Address [facility] Co de Phone Number [facility] [address] [facility] * POC HCO3 (10/17/2025 9:25 PM EST) Only the most recent of8 resultswithin the time period is included. POC HCO3, Arterial 22 22 - 26 mmol/L 10/17/2025 9:51 PM EST [facility] Blood, Arterial 10/17/2025 9 :25 PM EST 10/17/2025 9:51 PM EST Vani Drew MD POINT OF CARE TEST ORDERABLE S Final Result Performing Organization Address City/[facility]/ZIP Co de Phone Number [facility] [address] [facility] * (ABNORMAL) POC Chloride (10/17/2025 9:25 [...] [facility] [address] [facility]. [address] * (ABNORMAL) POC Base Excess (10/17/2025 [...] ORDERABLE S Final Result Performing Organization Address City/[facility]/ZIP Co de Phone Number [facility] [address] [facility]. [address] * POC Anion Gap (10/17/2025 9:25 PM EST) Only the most recent of8 resultswithin the time period is included. POC Anion Gap, Arterial 9 3 - 16 mmol/L 10/17/2025 9:51 PM EST [facility] Blood, Arterial 10/17/2025 9 :25 PM EST 10/17/2025 9:51 PM EST Vani Drew MD POINT OF CARE TEST ORDERABLE S Final Result Performing Organization Address City/[facility]/ZIP Co de Phone Number [facility] [address] [facility] * POC Sample Type (10/17/2025 9:25 PM EST) Only the most recent of8 resultswithin the time period is included. POC Sample Type Arterial 10/17/2025 9:51 PM EST [facility] Blood, Arterial 10/17/2025 9 :25 PM EST 10/17/2025 9:51 PM EST us Vani Drew MD POINT OF CARE TEST ORDERABLE S Final Result Performing Organization Address City/[facility]/ZIP Co de Phone Number [facility] [address] [facility] [address] * POC pH (10/17/2025 9:25 PM EST) Only the most recent of8 resultswithin the time period is included. POC pH, Arterial 7.37 7.35 - 7.45 10/17/2025 9:51 PM EST [facility] Blood, Arterial 10/17/2025 9 :25 PM EST 10/17/2025 9:51 PM EST Vani Drew MD POINT OF CARE TEST ORDERABLE S Final Result Performing Organization Address [facility] Co de Phone Number [facility] [address] [facility]. [address] * (ABNORMAL) POC hematocrit (10/17/2025 9:25 PM EST) Only the most recent of8 resultswithin the time period is included. POC Hematocrit 26.0(L) 40 - 52 % 10/17/2025 9:51 PM EST [facility] Blood, Arterial 10/17/2025 9 :25 PM EST 10/17/2025 9:51 PM EST Vani Drew MD POINT OF CARE TEST ORDERABLE S Final Result Performing Organization Address City/[facility] Co de Phone Number [facility] [address] [facility]. [address] * POC Ionized Calcium (10/17/2025 9:25 [...] [facility] [address] [facility]. [address] * (ABNORMAL) POC Glucose (10/17/2025 9:25 PM EST) Only the most recent of8 resultswithin the time period is included. POC Glucose, Arterial 227(H) 70 - 100 mg/dL 10/17/2025 9:51 PM EST [facility] Blood, Arterial 10/17/2025 9 :25 PM EST 10/17/2025 9:51 PM EST Vani Drew MD POINT OF CARE TEST ORDERABLE S Final Result Performing Organization Address City/[facility]/ZIP Co de Phone Number [facility] [address] * (ABNORMAL) POC Hemoglobin (10/17/2025 9:25 [...] [facility] [address] * (ABNORMAL) POC INR (10/17/2025 9:24 PM EST) Only the most recent of8 resultswithin the time period is included. Prothrombin Time INR, POC 2.3(H) 0.8 - 1.4 10/18/2025 12:08 AM EST [facility] Comment: Test results may vary using [...] TEST ORDERABLE S Final Result [facility] [address] * Transfuse Fresh Frozen Plasma (10/17/2025 [...] sult [facility] [address] * Transfuse RBC (10/17/2025 5:34 PM EST) Only the most recent of5 resultswithin the time period is included. Slade Munoz MD NURSING TREATMENT ORDERABLES - B LOOD ADMIN Final Result * Surgical Pathology Exam (10/17/2025 5:20 PM EST) Tissue LIVER STRUCTURE / Unknown 10/17/2025 5:20 PM EST Narrative [facility] - 10/17/2025 12:00 AM EST CASE: [id number] PATIENT: DAVID SERRANO Clinical History: transplant liver Pre-Operative Diagnosis: end stage liver disease Post-Operative Diagnosis: same Specimen(s) Submitted: A. [place] liver and gallbladder; B. Right lobe post perfusion liver bx; C. Left lobe post perfusion liver bx CPT Code(s): 23026 X 2; 35190 X 1; 67805 X 7 Additional Information: FINAL DIAGNOSIS: Liver and gall bladder, confederated goshute, total hepatectomy with cholecystectomy: Liver: -Cirrhosis, mild [...] with the patient's name David Serrano and confederated goshute liver and gallbladder is a 782 gram, [...] no discrete masses or lesions are identified. Glove Pairer sections are submitted in cassettes [id number] as follows: A1: Glove Pairer gallbladder. A2: Hilar margins, en face. A3-A5: Glove Pairer right lobe. A6-A8: Glove Pairer left lobe with liver written on the side of the cassette in A8. (LAISHA Miranda/vc) B. Received in formalin, labeled with the patient's name David Serrano and right lobe post perfusion liver biopsy is a 1.6 cm in length x 0.1 cm in diameter red-brown tissue core, which is entirely submitted between blue biopsy sponges in cassette [id number] B1. (LAISHA Miranda/vc) C. Received in formalin, labeled with the patient's name David Serrano and left lobe post perfusion liver biopsy is a 1.3 cm in length x 0.1 cm in diameter red-brown fragmented tissue core, which is entirely submitted between blue biopsy sponges in cassette [id number] C1. (LAISHA Miranda/) Microscopic Description: Sixteen HE [...] Pathologist signing this report is located at [facility], [address] [place] [address], [facility] [phone], CLIA ID: [id number] Jesus Lomeli MD PATHOLOGY/CYTOLOGY ORDERABLES Final Result [...] Organization Address [facility] Co de Phone Number [facility] [address] [facility]. [address] * Routine Culture plus Stain (Surgical [...] , aerobic, and fungal Narrative [facility] - 10/20/2025 11:09 AM EST 1. Ascites-anaerobic, aerobic, and fungal 1. Ascites-anaerobic, aerobic, and fungal Vani Drew MD MICROBIOLOGY - GENERAL ORDER MARYA Final Result Performing Organization Address [facility] Co de Phone Number [facility] [address] [facility]. [address] * Anaerobic culture (Surgical Swab) (10/17/2025 2:50 PM EST) Culture Result No Anaerobes Isolated in 5 Days [facility] Surgical Swab PERITONEAL FLUID / Unknown 10/17/2025 2:50 PM EST Comment:1. Ascites-anaerobic , aerobic, and fungal Narrative [facility] - 10/22/2025 11:32 AM EST 1. Ascites-anaerobic, aerobic, and fungal 1. Ascites-anaerobic, aerobic, and fungal Vani Drew MD MICROBIOLOGY - GENERAL ORDER MARYA Final Result Performing Organization Address City/[facility] Co de Phone Number [facility] [address] [facility]. [address] * CENTRAL LINE SINGLE LUMEN PERFORMABLE, HC [...] with tape, sterile dressing applied and sutured Slade Munoz MD IV THERAPY ORDERABLES Final Resu lt * Hepatitis C RNA, Quant Reflex to Genotyp (10/17/2025 10:19 AM EST) Pathologist [facility] Units Not Detected IU/mL 10/19/2025 2:12 [...] AM EST 10/17/2025 11:09 AM EST Kassi Inman [place] LAB BLOOD ORDERABLES Final Re sult [facility] [address] [place], [place] [address] * Hepatitis A Antibody Total (10/17/2025 10:18 AM EST) Pathologist [facility] Anti-HAV Total (IgG + IgM) Reactive 10/17/2025 12:22 PM EST [facility] Serum 10/17/2025 10:1 8 AM EST 10/17/2025 10:46 AM EST Narrative [facility] - 10/17/2025 12:22 PM EST HAV antibodies detected Kassi INTERIANO LAB BLOOD ORDERABLES Final Re sult Performing Organization Address [facility]/ZIP Co de Phone Number [facility] [address] * (ABNORMAL) Venous Blood Gas, Line/Syringe, STAT (10/17/2025 10:18 AM EST) PH-Line Draw 7.37 7.32 - 7.42 10/17/2025 10:27 AM EST [facility] PCO2-Line Draw 46 41 - 51 mm Hg 10/17/2025 10:27 AM [facility] PO2-Line Draw 29 25 - 40 mm Hg 10/17/2025 10:27 AM [facility] HCO3-Line Draw 24 24 - 28 mmol/L 10/17/2025 10:27 AM [facility] CO2 Content-Line Draw 28 25 - 29 mmol/L 10/17/2025 10:27 AM [facility] Base Excess-Line Draw 0.9 -2.0 - 3.0 mmol/L 10/17/2025 10:27 AM [facility] %HBO2-Line Draw 38.5(L) 40.0 - 70.0 % 10/17/2025 10:27 AM [facility] Carboxyhgb-Rebecca e Draw 1.4 0.0 - 2.0 % 10/17/2025 10:27 AM [facility] Comment: CARBOXYHEMOGLOBIN (CO) REFERENCE RANGES: Non-Smokers: <2 % Smokers: <8 % TOXIC: >20 % Methemoglobin- Line Draw 0.6 0.0 - 1.5 % 10/17/2025 10:27 AM [facility] Blood, Venous 10/17/2025 10: 18 AM EST 10/17/2025 10:24 AM EST Kassi INTERIANO LAB BLOOD ORDERABLES Final Re sult [facility] [address] [facility]. [address] * CMV IgG Antibody (10/17/2025 10:18 AM EST) CMV IgG Negative Negative 10/17/2025 12:16 PM EST [facility] CMV IGG NUM <0.20 0.00 - 0.59 U/mL 10/17/2025 12:16 PM EST [facility] Serum 10/17/2025 10:1 8 AM EST 10/17/2025 10:46 AM EST Kassi INTERIANO LAB BLOOD ORDERABLES Final Re sult Performing Organization Address [facility] Co de Phone Number [facility] [address] [facility] * Hepatitis B Core Antibody (10/17/2025 [...] ORDERABLES Final Re sult Performing Organization Address [facility] Co de Phone Number [facility] [address] [facility] * Hepatitis C Antibody (10/17/2025 10:18 AM EST) HCV Ab Nonreactive Nonreactive 10/17/2025 12:25 PM EST [facility] Comment:Health Department no tified in accordance with reportable infectious disease guidelines. Serum 10/17/2025 10:1 8 AM EST 10/17/2025 10:46 AM EST Narrative [facility] - 10/17/2025 12:25 PM EST Antibodies to HCV not detected; does not exclude the possibility of exposure to HCV. [facility] BLOOD ORDERABLES Final Re sult [facility] [address] [facility] * (ABNORMAL) Jose-Beard Virus VCA IgG [...] 8 AM EST 10/17/2025 10:46 AM EST [facility] [place] LAB BLOOD ORDERABLES Final Re sult Performing Organization Address [facility] Co de Phone Number [facility] [address] [facility] * ABO/Rh (10/17/2025 10:18 AM EST) Only the most recent of2 resultswithin the time period is included. ABO Grouping A 10/17/2025 10:53 AM EST [facility] Rh Type Positive 10/17/2025 10:53 AM EST [facility] Blood 10/17/2025 10:1 8 AM EST 10/17/2025 10:26 AM EST [facility] [place] BLOOD BANK TEST ORDERABLES Fi nal Result [facility] [address] [facility] * Vitamin D 25 Hydroxy (10/17/2025 10:18 AM EST) Vit D, 25-Hydroxy 39.3 30.0 - 100.0 ng/mL 10/17/2025 12:15 PM EST [facility] Comment: Vitamin D deficiency has been defined by the [place] [employer] (IOM) and an Endocrine Society [...] Re sult [facility] [address] [id number] * (ABNORMAL) Differential (10/17/2025 10:18 AM EST) [...] ORDERABLES Final Re sult Performing Organization Address City/[facility] Co de Phone Number [facility] [address] * Toxoplasma gondii Antibody, IgG (10/17/2025 10:18 AM EST) Only the most recent of2 resultswithin the time period is included. Pathologist [facility] Toxoplasma Gondii IgG <3.0 0.0 - 7.1 IU/mL 10/18/2025 4:54 AM EST [facility] Comment: Negative <7.2 Equivocal 7.2 - 8.7 Positive >8.7 Serum 10/17/2025 10:1 8 AM EST 10/18/2025 5:06 AM EST Narrative [facility] - 10/18/2025 5:06 AM EST PERFORMED AT: [facility] [address] [id number] CLINICAL RESEARCH MANAGER: Mateo Miller, PhD PHONE: [phone] Kassi INTERIANO LAB BLOOD ORDERABLES Final Re sult Performing Organization Address City/[facility]/ZIP Co de Phone Number [facility] [address] * HIV 1+2 Antibody/Antigen with Reflex (10/17/2025 10:18 AM EST) Pathologist [facility] HIV 1+2 AB/AGN Nonreactive Nonreactive 10/17/2025 12:16 PM EST [facility] Serum 10/17/2025 10:1 8 AM EST 10/17/2025 10:46 AM EST [facility] - 10/17/2025 12:16 PM EST \HIVRNR [facility] LAB BLOOD ORDERABLES Final Re sult Performing Organization Address [facility] Co de Phone Number [facility] [address] [place] [address]. [address] * (ABNORMAL) Hepatitis B Surface Antibody, Quantitati (10/17/2025 10:18 AM EST) Hep B S Ab Reactive( A) Nonreactive 10/17/2025 12:29 PM EST [facility] HBSAB NUMBER 260.00(H) 0.00 - 7.99 mIU/mL 10/17/2025 12:29 PM EST [facility] Serum 10/17/2025 10:1 8 AM EST 10/17/2025 10:46 AM EST [facility] - 10/17/2025 12:29 PM EST Individual is considered immune to HBV infection. Kassi INTERIANO LAB BLOOD ORDERABLES Final Re sult Performing Organization Address [facility] [facility] Co de Phone Number [facility] [address] [place] [address]. [address] * Hepatitis B surface antigen (10/17/2025 10:18 AM EST) Hep B Surface Ag Nonreactive Nonreactive 10/17/2025 12:21 PM EST [facility] Comment:Health Department no tified in accordance with reportable infectious disease guidelines. Serum 10/17/2025 10:1 8 AM EST 10/17/2025 10:46 AM EST [facility] - 10/17/2025 12:21 PM EST Specimen is considered negative for HBsAg. us Kassi INTERIANO LAB BLOOD ORDERABLES Final Re sult [facility] [address] * Antibody Screen (10/17/2025 10:18 AM EST) Antibody Screen Negative 10/17/2025 11:09 AM EST [facility] Blood 10/17/2025 10:1 8 AM EST 10/17/2025 10:26 AM EST Narrative [facility] - 10/17/2025 11:17 AM EST Testing performed by [facility] Transfusion Service Kassi INTERIANO BLOOD BANK TEST ORDERABLES Fi nal Result Performing Organization Address [facility]/ZIP Co de Phone Number [facility] [address] [facility] * Hemoglobin A1C (10/17/2025 10:18 AM EST) Only the most recent of2 resultswithin the time period is included. Pathologist [facility] Hemoglobin A1C 4.0 [...] ORDERABLES Final Re sult Performing Organization Address City/[facility]/ZIP Co de Phone Number [facility] [address] * (ABNORMAL) Urinalysis w/Rfl to Microscopic (09/24/2025 2:11 PM EST) Color, UA Yellow Yellow,Straw 09/24/2025 3:25 PM EST [facility] Clarity, UA Cloudy(A) Clear 09/24/2025 3:25 PM EST [facility] Specific [place], UA 1.019 1.005 - 1.035 09/24/2025 3:25 PM EST [facility] pH, UA 6.0 5.0 - 8.0 09/24/2025 3:25 PM EST [facility] Protein, UA 30(A) Negative mg/dL 09/24/2025 3:25 PM EST [facility] Glucose, UA Negative Negative mg/dL 09/24/2025 3:25 PM EST [facility] Ketones, UA Negative Negative mg/dL 09/24/2025 3:25 PM EST [facility] Bilirubin, UA Negative Negative 09/24/2025 3:25 PM EST [facility] Blood, UA Large(A) Negative 09/24/2025 3:25 PM EST [facility] Nitrite, UA Negative Negative 09/24/2025 3:25 PM [facility] Urobilinogen, UA <2.0 0.2 - 1.9 mg/dL 09/24/2025 3:25 PM EST [facility] Leukocyte Esterase, UA Large(A) Negative 09/24/2025 3:25 PM [facility] RBC, UA 61(H) 0 - 3 /HPF 09/24/2025 3:25 PM EST [facility] WBC, UA >100(H) 0 - 5 /HPF 09/24/2025 3:25 PM EST [facility] Squam Epithel, UA 1 0 - 5 /HPF 09/24/2025 3:25 PM EST [facility] Bacteria, UA Rare(A) None Seen /HPF 09/24/2025 3:25 PM EST [facility] Mucus, UA Present(A) None Seen /HPF 09/24/2025 3:25 PM EST [facility] Urine 09/24/2025 2:11 PM EST 09/24/2025 2:51 PM EST Nigel Reaves MD URINE ORDERABLES Final Result [facility] [address] * Urine culture (09/24/2025 2:11 PM EST) Culture Result No Growth [facility] Midstream Urine URINE SPECIMEN / Unknown 09/24/2025 2:11 PM EST 09/24/2025 3:25 PM EST Nigel Reaves MD MICROBIOLOGY - GENERAL ORDERABLE S Final Result Performing Organization Address City/[facility]/ZIP Co de Phone Number [facility] [address] * (ABNORMAL) MMR(IgG) Panel (Measles, Mumps, Rubella) (09/10/2025 5:03 PM EDT) Mumps IgG Positive 09/10/2025 11:51 PM EDT [facility] MUMPS IGG NUM >300.00(H) 0.0 - 8.9 U/mL 09/10/2025 11:51 PM EDT [facility] Rubella IgG Scr Positive 09/10/2025 11:51 PM EDT [facility] RUB NUM 30.20(H) 0.0 - 0.8 INDEX 09/10/2025 11:51 PM EDT [facility] Rubeola Ab, IgG Positive 09/10/2025 11:50 PM EDT [facility] RUB IGG NUM >300.00(H) 0.00 - 13.40 U/mL 09/10/2025 11:50 PM EDT [facility] Serum 09/10/2025 5:03 PM EDT [...] BLOOD ORDERABLES Final Resu lt [facility] [address] * Syphilis Screening (Trepia) (09/10/2025 5:03 PM EDT) Treponema Pallidum Negative Negative 09/10/2025 11:55 PM EDT [facility] Comment: No serological evidence of infection with Treponema pallidum (incubating or early primary syphilis cannot be excluded). Serum 09/10/2025 5:03 PM EDT 09/10/2025 10:26 PM EDT Navi Sims MD LAB BLOOD ORDERABLES Final Resu lt Performing Organization Address [facility]/ZIP Co de Phone Number [facility] [address] [facility]. [address] * QuantiFERON TB2 Ag (09/10/2025 5:03 PM EDT) QuantiFERON TB2 Ag Value 0.09 09/12/2025 1:19 PM EDT [facility] Plasma 09/10/2025 5:03 PM EDT 09/10/2025 6:29 PM EDT Navi Sims MD LAB BLOOD ORDERABLES Final Resu lt [facility] [address] [facility]. [address] * QuantiFERON TB1 Ag (09/10/2025 5:03 PM EDT) QuantiFERON TB1 Ag Value 0.08 09/12/2025 1:19 PM EDT [facility] Plasma 09/10/2025 5:03 PM EDT 09/10/2025 6:29 PM EDT Navi Sims MD LAB BLOOD ORDERABLES Final Resu lt [facility] [address] * QuantiFERON Nil (09/10/2025 5:03 PM EDT) QuantiFERON Nil 0.02 1:19 PM EDT [facility] Plasma 09/10/2025 5:03 PM EDT 09/10/2025 6:29 PM EDT Navi Sims MD LAB BLOOD ORDERABLES Final Resu lt Performing Organization Address City/[facility]/ZIP Co de Phone Number [facility] [address] * QuantiFERON Mitogen (09/10/2025 5:03 PM EDT) QuantiFERON Interpretation Negative Negative 09/12/2025 1:19 PM EDT [facility] Comment:Negative result pilar cates M. tuberculosis infection is NOT likely. Negative results do not preclude tuberculosis infection (especially in immunosuppressed patients). Negative results have a TB antigen minus Nil value less than 0.35 IU/mL. In cases with high suspicion of disease, retesting or additional testing with medical evaluation may be useful. QuantiFERON Mitogen 8.77 09/12 1:19 PM EDT [facility] Plasma 09/10/2025 5:03 PM EDT 09/10/2025 6:29 PM EDT Narrative [facility] - 09/12/2025 1:19 PM EDT [...] BLOOD ORDERABLES Final Resu lt [facility] [address] [facility]. [address] * (ABNORMAL) Strongyloides Ab (09/10/2025 5:03 PM EDT) Pathologist [facility] Strongyloides Ab Positive( A) Negative 09/17/2025 2:56 PM EST [facility] Serum 09/10/2025 5:03 PM EDT 09/17/2025 3:07 PM EST Narrative [facility] - 09/17/2025 3:07 PM EST PERFORMED AT: [address] [id number] CLINICAL RESEARCH MANAGER: Kevin Holguin MD PHONE: [phone] Navi Sims MD LAB BLOOD ORDERABLES Final Resu lt Performing Organization Address [facility] Co de Phone Number [facility] [address] * AFP tumor marker (09/10/2025 5:03 PM EDT) [facility] AFP-Tumor Marker 2.0 0.0 - 9.0 ng/mL 09/10/2025 8:52 PM EDT [facility] Serum 09/10/2025 5:03 PM EDT 09/10/2025 6:42 PM EDT Narrative [facility] - 09/10/2025 8:52 PM EDT The testing method for AFP is a chemiluminescent immunoassay manufactured by [employer] Concentrations of AFP obtained by different assay methods or kits may vary and cannot be used interchangeably. AFP results cannot be interpreted as absolute evidence of the presence or absence of malignant disease. Buddy Zimmerman MD LAB BLOOD ORDERABLES Final Resul t Performing Organization Address City/[facility]/ZIP Co de Phone Number [facility] [address] * (ABNORMAL) Varicella zoster antibody, IgG (09/10/2025 5:03 PM EDT) Pathologist [facility] Varicella IgG Positive( A) Negative S/CO 09/10/2025 11:49 PM EDT [facility] Comment:Result indicates the presence of detectable VZV IgG antibodies. A positive result is generally indicative of exposure to the pathogen or administration of specific immunoglobulins, but it is no indication of active infection or stage of disease. This test is not approved for determining vaccine-induced immunity to varicella zoster virus. VZV NUM 15.50(H) 0.00 - 0.99 S/CO 09/10/2025 11:49 PM EDT [facility] Serum 09/10/2025 5:03 PM EDT 09/10/2025 10:26 PM EDT Navi Sims MD LAB BLOOD ORDERABLES Final Resu lt Performing Organization Address [facility] Co de Phone Number [facility] [address] [place] [address]. [address] * TSH (Thyroid Stimulating Hormone) (09/10/2025 5:03 PM EDT) [facility] TSH 2.85 0.45 - 4.12 uIU/mL 09/11/2025 12:13 AM EDT [facility] Serum 09/10/2025 5:03 PM EDT 09/10/2025 6:42 PM EDT Buddy Zimmerman MD LAB BLOOD ORDERABLES Final Resul t Performing Organization Address City/[facility] Co de Phone Number [facility] [address] * (ABNORMAL) Lipid Profile (09/10/2025 5:03 PM EDT) [facility] Non-HDL Cholesterol, Calculated 109 0 - 129 mg/dL 09/10/2025 8:21 PM EDT [facility] Comment: Desirable: < 130 mg/dL Above Desirable: 130-159 mg/dL Borderline High: 160-189 mg/dL High: 190-219 mg/dL Very High: > 219 mg/dL Cholesterol, Total 135 0 - 200 mg/dL 09/10/2025 8:21 PM EDT [facility] Triglycerides 60 10 - 149 mg/dL 09/10/2025 8:21 PM EDT [facility] HDL 26(L) 60 - 92 mg/dL 09/10/2025 8:21 PM EDT [facility] Comment: LIPID PROFILE INTERPRETATION CHOLESTEROL,TOTAL(mg/dL) [...] LDL Cholesterol 97 mg/dL 8:21 PM EDT [facility] Plasma 09/10/2025 5:03 PM EDT 09/10/2025 5:52 PM EDT Narrative [facility] - 09/10/2025 8:21 PM EDT Must the patient be fasting for this test?->No LDL cholesterol calculated using the Friedewald equation. us Buddy Zimmerman MD LAB BLOOD ORDERABLES Final Resul t [facility] [address] [id number], [facility] * ECG 12-Lead (MUSE) (09/10/2025 12:14 PM EDT) 09/10/2025 12:1 4 PM EDT Narrative MUSE - 09/10/2025 3:28 PM EDT Ventricular Rate: 64 BPM Atrial Rate: 64 BPM P-R Interval: 190 ms QRS Duration: 84 ms QT: 464 ms QTc: 478 ms P [place]: 27 degrees R [place]: 58 degrees T [place]: 22 degrees Diagnosis Line: NORMAL SINUS RHYTHM ^ NORMAL ECG ^ No previous ECGs available ^ Confirmed by MD TIP, [facility] ([id number]) on 09/10/2025 3:28:36 PM [...] within the right upper lobe with downstream [id number] within the paramedian right upper lobe apex. [...] System IMG US ORDERABLES Final R esult from Last 3 Months Insurance [employer] [facility] Address: [facility] [id number] [place] [address] BLUE ACCESS Member Subscriber Plan / Payer (Ef fective 2024-Present) Name:David Serrano Relation to Subscriber:Self Name:David Serrano Payer ID:[id number] ([facility]) Type:PPO Address: [facility] [id number] [place] [id number] [employer] Member Subscriber Plan / Payer (Ef fective 2025-2025) Name:David Serrano Relation to Subscriber:Self Name:David Serrano Payer ID:[id number] Group ID:Not on file Type:Transplant Address: [address] [place] [address] Advance Directives For more information, please contact: [phone] Documents on File Type Date Recorded Patient Glove Pairer Expl anation Living Will Testament - scan 10/23/2025 Durable Power of Computer Art Instructor - scan 10/23/2025 * Full Code (Latest Code Status on File) Date Activated Date Inactivated Comments 10/17/2025 9:46 AM 10/22/2025 9:30 PM Care Teams Terminal Computer Operator Relationship Specialty Start Date End Date Dr. Chris Medel MD [address] [facility] [address] [place] [address] PCP - General Primary Care 10/25/25
--- OUTSIDE RECORDS SUMMARY | 2025-10-29 07:47 | XMS_ITS | Encounter Summary ---
Author Organization [facility] Address [address] [place] [address] Care Team Providers Care Travel Registered Nurse Nicu Name Role Phone System, Provider Not In [...] release of HIV test results or diagnoses. [id number] Health Encounter Details Date Type Department Care Team (Late st Contact Info) Description 10/17/2025 Telephone [facility] Liver Transplant at [address] [address] Joslyn Faulkner, RN Social History [...] living in a half-way (including now)? No 10/17/2025 Utilities Answer Date Recorded In the past 12 months has th e [employer], gas, oil, or water company threatened to [...] [] No Pt instructed for admission Location: [facility] Estimated arrival time: 10/17 @ 0900 [x] [...] Notifications: Department Phone Comments Time/Name Capacity Management [phone] Notified of patient's pending TXP ORGANS:Liver Time: Spoke to: n/a OR [phone] OR scheduled for: per Dr. Drew Recipient in the OR time 10/17 @ 1200 Acute donor Risk (according to OPTN policy)No (HCV, HBV, HIV, COVID) Notified Donor is DBD Time:29 spoke to Carlos OR felt pad cutter: Blanca Cooper CREATED ORGAN Time: 26 BLOOD BANK [phone] For Liver and Heart only 33 spoke juve Fernández Nursing Director Of Business Operations [phone] For delayed call in 26 spoke with Abby PACU or [facility] [phone] Delayed call in: If recipient OR is 2 hrs or less from admission, call PACU/[facility] (basedon where nursing cutting and splicing supervisor assigns patient) 0730-spoke with Tejas Abdominal Transplant 8CCP [phone] Transfer of care reported for abdominal txp Notified of dialysis type and last session if applicable Time: 36 8CCP felt pad cutter: Vasquez SICU [phone] Notify about abdominal txp admissions Time:37 SICU felt pad cutter:Marisela Transplant Surgery Resident/PA QGenda Time: 809 Spoke to: Erikan Transplant Surgery Fellow QGenda Time: 29 Spoke to: Dr Haley Transplant Research Team [phone] Time: 809 Spoke to: [facility] IV Room [phone] Liver Only Contact pharmacy to alert that HBIG will be needed when all the following are present: Donor: *HBsAg negative *HBV DNA/NII negative Recipient: *HBsAg positive *HBV DNA is detectable on most recent check Time: Spoke to: N/A Email notification to Transplant Team(s) and OR felt pad cutter. [Send the following information below to the [...] Venoveno bypass: no Donor info: Donor ID: [id number] Match ID: [id number] Anti-HBc: Negative HBV NII: Negative HBsAg: Negative [...] as of this encounter Care Teams Travel Registered Nurse Nicu Relationship Specialty Start Date End Date System, Provider Not In PCP - General 09/10/25 10/24/25 documented as of this encounter
--- OUTSIDE RECORDS SUMMARY | 2025-10-29 07:48 | XMS_ITS | Encounter Summary ---
Author Organization [facility] Address [address] [place] [address] Care Team Providers Care Black Top Spreader Machine Operator Name Role Phone System, Provider [...] release of HIV test results or diagnoses. [id number] Health Encounter Details Date Type Department Care Team (Late st Contact Info) Description 09/25/2025 Chart Note [facility] Liver Transplant at [address] [address] Chapito Alcantar RN UNOS VERIFICATION CHECK FORM [...] Multidisciplinary Team documentation Initial Hepatology assessment aw vehicle delivery worker within the last year aw Dietitian [...] nlc Physical Capacity nlc Working for Income [facility] Multidisciplinary Team documentation Initial Hepatology assessment nlc vehicle delivery worker within the last year nlc Dietitian within the last year nlc Finance within the last year nlc Pharmacy within the last year nl Initial surgery assessment nlc RN coordinator EDU documentation nlc Book marked labs/pertinent data (Regulatory) [facility] documented in this encounter Plan of Treatment [...] documented as of this encounter Care Teams Black Top Spreader Machine Operator Relationship Specialty Start Date End Date System, Provider Not In PCP - General 09/10/25 10/24/25 documented as of this encounter
--- OUTSIDE RECORDS SUMMARY | 2025-10-29 07:48 | XMS_ITS | Encounter Summary ---
Author Organization [facility] Address [address] [place] [address] Care Team Providers Care Portrait Consultant Name Role Phone System, Provider Not [...] release of HIV test results or diagnoses. [id number] Reason for Visit * Reason Comments Appointment Encounter Details Date Type Department Care Team (Late st Contact Info) Description 10/03/2025 Telephone [facility] Liver Transplant at [address] [address] Pb Sy, RN Appointment Social History Tobacco [...] Time granted: 1041 Who granted: OPO OPO: [facility] OPO Contact: Recent illnesses [] Yes [...] need to bring equipment or solution to [facility]. They will get supplies from dialysis unit [...] Notifications: Department Phone Comments Time/Name Capacity Management [phone] Notified of patient's pending TXP ORGANS:LIVER Time:1130 Spoke to:ANASTASIIA HERNANDEZ [phone] OR scheduled for: per Dr. WINKLER Recipient in the OR time 10/03 Acute donor Risk (according to OPTN policy)NO (HCV, HBV, HIV, COVID) Notified Donor is DCD Heart using [employer] N/A Time:113 OR r d internship:AVANI LUGO ORGAN Time:104 BLOOD BANK [phone] For Liver and Heart only 113 [facility] Nursing Welding Machine Operator [employer] [phone] For delayed call in [email or web address] PACU or [facility] [phone] Delayed call in: If recipient OR is 2 hrs or less from admission, call PACU/[facility] (basedon where nursing parachute supervisor assigns patient) DELAYED CALL IN Abdominal Transplant 8CCP [phone] Transfer of care reported for abdominal txp Notified of dialysis type and last session if applicable Time:DELAYED CALL IN 8CCP r d internship: SICU [phone] Notify about abdominal txp admissions Time:1150 SICU r d internship:SHILOH Transplant Surgery Resident/LAISHA Wyatt [email or web address]@[phone] Time:1156 Spoke to:DR CHRISTIANSON Transplant Surgery Fellow QKhoa Time:1156 Spoke to:DR RUSSELL Transplant Research Team [phone] LEFT MESSAGE @5266 Time:1157 Spoke to: If applicable, Dialysis Unit EMR Time:N/A Spoke to: Pharmacy IV Room [phone] Liver Only Contact pharmacy to alert that HBIG will be needed when all the following are present: Donor: *HBsAg negative *HBV DNA/NII negative Recipient: *HBsAg positive *HBV DNA is detectable on most recent check Time:N/A Spoke to: Heart Transplant CVICU [phone] Transfer of care reported for heart txp Time:N/A CVICU r d internship: Email notification to Transplant Team(s) and OR r d internship. Received notification for potential Liver transplant for David Pop, 1960. Recipient Info: David Pop 1960 ABO: A CMV: NEGATIVE EBV: POSITIVE HepBsAb: POSITIVE Referring MD: Dr. Portia Maguire. Surgeon: Dr. PETERSON Dai ETA: DELAYED CALL IN OR time and date: 10/03 CRRT needed in OR: NO Venoveno bypass: NO Donor info: Donor ID: [id number] Match ID: [id number] Anti-HBc: Negative HBV NII: Negative HBsAg: Negative [...] documented as of this encounter Care Teams Portrait Consultant Relationship Specialty Start Date End Date System, Provider Not In PCP - General 09/10/25 10/24/25 documented as of this encounter
--- OUTSIDE RECORDS SUMMARY | 2025-10-29 07:48 | XMS_ITS | Encounter Summary ---
Author Organization [facility] Address [address] [place] [address] Care Team Providers Care Education Reporter Name Role Phone System, Provider Not In [...] release of HIV test results or diagnoses. [id number] Health Encounter Details Date Type Department Care Team (Late st Contact Info) Description 09/24/2025 Chart Note [facility] Kidney Transplant at [address] [phone] Aliin Wells Called local office again to get [...] documented as of this encounter Care Teams Education Reporter Relationship Specialty Start Date End Date System, Provider Not In PCP - General 09/10/25 10/24/25 documented as of this encounter
--- OUTSIDE RECORDS SUMMARY | 2025-10-29 07:48 | XMS_ITS | Encounter Summary ---
Author Organization [facility] Address [address] [place] [address] Care Team Providers Care Roller Skates Assembler Name Role Phone System, Provider Not In [...] release of HIV test results or diagnoses. [id number] Health Encounter Details Date Type Department Care Team (Late st Contact Info) Description 10/03/2025 Chart Note [facility] Kidney Transplant at [address] [address] Ailin Wells Organ: Liver Social History Tobacco [...] Organ: Liver Patient [place] Citizen: Yes Patient [place]: No Patient is Minor Children in the home: no Patient is retired, spouse works FT Income:$11k/mnth combined Primary Ins: [employer] BCBS Insured:self Secondary Ins: N/A COBRA: No- insurance plan is paid by previous employer as part of longterm package Eligible for short/mcfp disability: N/A Disability due to: n/A Travel/Lodging: no No Medicare: Will be eligible in January of 2026. Provided Ret[employer] info Discussed Medication List and Coverage: Yes Patient will need medications from [facility] post txp:unknown Recipient needs cleared prior to donor being evaluated:no Evaluation for patients/donors need to be done at [facility] Obtained signature on benefits sheets and financial consent: mailed to patient documented in this encounter Plan of Treatment Not on file documented as of this encounter Visit Diagnoses Not on filedocumented in this encounter Additional Health Concerns Assessment Noted Time PHQ-9 Depression Total Score: 8 09/10/20 11:09 AM EDT documented as of this encounter Care Teams Roller Skates Assembler Relationship Specialty Start Date End Date System, Provider Not In PCP - General 09/10/25 10/24/25 documented as of this encounter
--- OUTSIDE RECORDS SUMMARY | 2025-10-29 07:48 | XMS_ITS | Encounter Summary ---
Author Organization [facility] Address [address] [place] [address] Care Team Providers Care Associate Director Finance Name Role Phone System, Provider Not [...] release of HIV test results or diagnoses. [id number] Health Encounter Details Date Type Department Care Team (Late st Contact Info) Description 10/03/2025 Telephone [facility] Liver Transplant at [address] [address] Pb Sy, RN Social History Tobacco Use [...] well as Bed Board, OR Charge, Nursing Cdl Team Truck Driver, blood bank and Sicu charge. documented in this encounter Plan of Treatment Not on file documented as of this encounter Visit Diagnoses Not on filedocumented in this encounter Additional Health Concerns Assessment Noted Time PHQ-9 Depression Total Score: 8 09/10/20 11:09 AM EDT documented as of this encounter Care Teams Associate Director Finance Relationship Specialty Start Date End Date System, Provider Not In PCP - General 09/10/25 10/24/25 documented as of this encounter
--- OUTSIDE RECORDS SUMMARY | 2025-10-29 07:48 | XMS_ITS | Encounter Summary ---
Author Organization [facility] Address [address] [place] [address] Care Team Providers Care Production Line Assembler Name Role Phone System, Provider Not [...] release of HIV test results or diagnoses. [id number] Health Encounter Details Date Type Department Care Team (Late st Contact Info) Description 09/25/2025 Telephone [facility] Transplant at [address] [address] Chapito Alcantar, SILVIO Social History Tobacco Use [...] of this encounter Progress Notes * Chapito Alcatnar RN - 09/25/2025 4:28 PM EST Called patient's spouse to review the recent committee decision. She is agreeable to be listed on the [facility] transplant wait list. Reviewed HBV/HCV/acute risk organs with patient. They are agreeable toall offers. Patient [place] 1[place]5-2 hours from [facility]. documented in this encounter Plan of Treatment Not on file documented as of this encounter Visit Diagnoses Not on filedocumented in this encounter Additional Health Concerns Assessment Noted Time PHQ-9 Depression Total Score: 8 09/10/20 11:09 AM EDT documented as of this encounter Care Teams Production Line Assembler Relationship Specialty Start Date End Date System, Provider Not In PCP - General 09/10/25 10/24/25 documented as of this encounter
--- OUTSIDE RECORDS SUMMARY | 2025-10-29 07:48 | XMS_ITS | Encounter Summary ---
Author Organization [facility] Address [address] [place] [address] Care Team Providers Care Field Tax Auditor Name Role Phone System, Provider Not [...] release of HIV test results or diagnoses. [id number] Health Encounter Details Date Type Department Care Team (Late st Contact Info) Description 09/25/2025 Chart Note [facility] Kidney Transplant at [address] [address] Ailin Wells Authorization for listing Social History [...] for listing Organ: Liver [employer] Co: [employer] [facility] Corporate Auditor: Serena Carter ext [phone] Authorization # [id number] Dates of Service: 09/24/2025-09/23/2026 Additional Information: Scanned to PFS documented in this encounter Plan of Treatment Not on file documented as of this encounter Visit Diagnoses Not on filedocumented in this encounter Additional Health Concerns Assessment Noted Time PHQ-9 Depression Total Score: 8 09/10/20 11:09 AM EDT documented as of this encounter Care Teams Field Tax Auditor Relationship Specialty Start Date End Date System, Provider Not In PCP - General 09/10/25 10/24/25 documented as of this encounter
--- OUTSIDE RECORDS SUMMARY | 2025-10-29 07:48 | XMS_ITS | Encounter Summary ---
Author Organization [facility] Address [address] [place] [address] Care Team Providers Care Practical Nursing Instructor Name Role Phone System, Provider Not [...] release of HIV test results or diagnoses. [id number] Health Encounter Details Date Type Department Care Team (Late st Contact Info) Description 09/20/2025 Telephone [facility] Liver Transplant at [address] [address] Cori Dover MA Social History Tobacco Use [...] Dover MA - 09/20/2025 10:29 AM EST [facility] called to get patient scheduled for a follow up visit with Dr. Reaves. documented in this encounter Plan of Treatment Not on file documented as of this encounter Visit Diagnoses Not on filedocumented in this encounter Additional Health Concerns Assessment Noted Time PHQ-9 Depression Total Score: 8 09/10/20 11:09 AM EDT documented as of this encounter Care Teams Practical Nursing Instructor Relationship Specialty Start Date End Date System, Provider Not In PCP - General 09/10/25 10/24/25 documented as of this encounter
--- OUTSIDE RECORDS SUMMARY | 2025-10-29 07:48 | XMS_ITS | Encounter Summary ---
Author Organization [facility] Address [address] [place] [address] Care Team Providers Care Clinical Specialist Vascular Name Role Phone Ruma Hernández SIGNAL CIRCUIT DESIGNER Unavailable [phone] Chris Medel MD Primary Care Provider [phone] Encounter Details Date Type Department Care Team (Late st Contact Info) Description 08/20/2025 Results Follow-Up [facility] [address] [place] [id number] Meaghan Le, RN [facility] LIVER [id number] [address] [place] [address] Social History Tobacco Use Types Packs/Day Years [...] 02/19/2025 How often do you attend [facility] or episcopalian services? More than 4 times per year 02/19/2025 Do you belong to any clubs o r organizations such as orthodox groups, unions, [employer] or athletic groups, or school groups? Yes [...] and heating? Not hard at all 06/15/2025 [facility] - Occupational Stress [...] drink first t luisa in the morning ([employer]ILD[employer] SUPERVISOR) to steady your nerves or to get rid of a hangover? 0 06/14/2025 CAGE Questionnaire Score 0 025 Utilities Answer Date Recorded In the past 12 months has th e [employer], gas, oil, or water [employer] threatened to shut off services in your [...] Office Building Urology [address], [address] [place] [address] Suhail Brock MD [address] [facility] [address] [place] [address] documented as of this encounter [...] as of this encounter Care Teams Clinical Specialist Vascular Relationship Specialty [place] [id number] PCP - General 03/14/25 Ruma Hernández APRN [address] [place] [address] Referring Physician Gastroenterology 07/30/23 documented as of this encounter
--- OUTSIDE RECORDS SUMMARY | 2025-10-29 07:48 | XMS_ITS | Clinical Summary ---
Author Organization [facility] Address [address] [place] [address] Care Team Providers Care Development Coordinator Name Role Phone ToniUrban morataya DO Primary Care Provider [phone] Allergies Active Allergy Reactions Criticality Noted Date [...] Recently Relevant to Health Maintenance Insurance [employer] P[employer] Care Teams Development Coordinator Relationship Specialty Start Date End Date Urban Brantley DO [address] [place], [place] [id number] PCP - General Internal Medicine 03/22/23
--- OUTSIDE RECORDS SUMMARY | 2025-10-29 07:48 | XMS_ITS | Clinical Summary ---
Author Organization [facility] Address [address] [place] [address] Care Team Providers Care Christian Counselor Name Role Phone Ruma Hernández MUSHROOM PACKER Unavailable [phone] Chris Medel MD Primary Care Provider [phone] Allergies Active Allergy Reactions Criticality Noted Date Comments Lisinopril Cough Low 09/15/2021 Medications carvedilol (Coreg) 3.125 MG tabletIndicatio ns:Cirrhosis of liver with ascites, unspecified hepatic cirrhosis type Take 1 tablet (3.125 mg) by mouth 2 (two) times a day with meals. 60 tablet 11 09/13/20 24 Active ergocalciferol (Vitamin D-2) 1.25 MG (76936 UT) capsule Take 1 capsule by mouth [...] Department Care Team Description 10/16/2025 Results Follow-Up [facility] [address] [place] [address] Meaghan Le RN 10/15/2025 Telephone [facility] [address], [address] [place] [address] Moustapha Katz MD HCN - Patient Message 10/09/2025 Results Follow-Up [facility] [place] [address] [place] [address] Meaghan Le RN 10/08/2025 Orders Only [facility] [address] [place] [address] Provider, Historical 10/02/2025 Refill [facility] [address] [place] [address] Portia Maguire MD Pre-liver transplant, listed (Primary Dx); End-stage liver disease (CMS/HCC) 09/12/2025 10:00 AM EDT Office Visit [facility] [place] [address] Portia Maguire MD Pre-liver transplant, listed [...] S Radiology [address], [address] [place] [address] Pre-liver transplant, listed Discharge Disposition: Home or Self Care 09/12/2025 Results Follow-Up [place] [address] [place] [address] Meaghan Le RN 09/12/2025 Travel 09/11/2025 Travel 09/05/2025 Orders Only [facility] [place] [address] [place] [address] Meaghan Le RN Pre-liver transplant, listed (Primary Dx) 08/31/2025 Results Follow-Up [place] [address] [place] [address] Meaghan Le RN 08/29/2025 Orders Only [facility] [address] [place] [address] Provider, Historical 08/20/2025 Results Follow-Up [facility] [address] [place] [id number] Meaghan Le RN 08/01/2025 Results Follow-Up [facility] [address] [place] [id number] Meaghan Le, SILVIO from Last 3 Months [...] often do you attend chur ch or islam services? More than 4 times [...] do you attend [facility] or islam services? More than 4 [...] 06/15/2025 [facility] - Occupational [...] any time in the past 12 m [facility], were you homeless or living [...] drink first t luisa in the morning (EYE-QUALITY RN) to steady your nerves or to get rid of a hangover? 0 06/14/2025 CAGE Questionnaire Score 0 025 Utilities Answer Date Recorded In the past 12 months has th e electric, gas, oil, or water [employer] threatened to shut off services in your [...] [address], [address] [place] [address] Suhail Brock MD [address] [place] [address] Health Maintenance Due Date Last Done Comments [facility]-/Child/Adol SDOH Screenings 1960 [id number] Vaccine (#1) 1960 [facility]-Hepatitis A Vaccines (1 [...] of2 resultswithin the time period is included. Historical Provider LAB BLOOD ORDERABLES Final R esult * APTT (10/08/2025 10:14 AM EST) Blood Venous blood specimen / Unknown Historical Provider LAB BLOOD ORDERABLES Final R esult * Prothrombin Time/INR (10/08/2025 10:14 AM EST) Only the most recent of8 resultswithin the time period is included. Blood Venous blood specimen / Unknown Result [facility] Provider LAB BLOOD ORDERABLES Final R esult * CBC and Differential (10/08/2025 10:14 AM EST) Only the most recent of2 resultswithin the time period is included. Blood Venous blood specimen / Unknown Result [facility] Provider LAB BLOOD ORDERABLES Final R esult * CBC W/O Differential (10/08/2025) Only the most recent of6 resultswithin the time period is included. External WBC 3.3 External Red Blood Cell (RBC) 3.23 External Hemoglobin (Hgb) 10.80 External Hematocrit (Hct) 32.6 External Platelet Count (Plt) 71 Blood Venous blood specimen / Unknown 10/08/2025 Result [facility] LAB BLOOD ORDERABLES Final R esult * [...] Venous blood specimen / Unknown 10/08/2025 Result [facility] Provider LAB BLOOD ORDERABLES Final R [...] using the following sequences: coronal single shot [id number] fast spin echo, axial T2 weighted sequences [...] <20 <20 ng/mL 09/14 7:16 AM EDT [facility] Alpha [place] Midazolam <20 <20 ng/mL 2024 7:16 AM EDT [facility] [place] Triazolam <20 <20 ng/mL 2024 7:16 AM EDT [facility] Alprazolam <10 <10 ng/mL 09/14/2025 7:16 AM EDT [facility] Aminoclonazepam <20 <20 ng/mL 7:16 AM EDT [facility] Amphetamine <50 <50 ng/mL 09/14/2025 7:16 AM EDT [facility] Benzoylecgonine <50 <50 ng/mL 7:16 AM EDT [facility] Buprenorphine <10 <10 ng/mL 09/14/2025 7:16 AM EDT [facility] Buprenorphine Glucuronide <50 <50 ng/mL 09/14/2025 7:16 AM EDT [facility] Butalbital <50 <50 ng/mL 09/14/2025 7:16 AM EDT [facility] 9 Carboxy THC <10 <10 ng/mL 09/14/2025 7:16 AM EDT [facility] 9 Carboxy THC Glucuronide <25 <25 ng/mL 09/14/2025 7:16 AM EDT [facility] Clonazepam <10 <10 ng/mL 09/14/2025 7:16 AM EDT [facility] Codeine <50 <50 ng/mL 09/14/2025 7:16 AM EDT [facility] Codeine Glucuronide <50 <50 ng/mL 09/14 7:16 AM EDT [facility] Cyclobenzaprine <50 <50 ng/mL 7:16 AM EDT [facility] Desmethyl Tramadol <50 <50 ng/mL 2024 7:16 AM EDT [facility] Diazepam <10 <10 ng/mL 09/14/2025 7:16 AM EDT [facility] EDDP - Methadone Metabolite <50 <50 ng/mL 09/14/2025 7:16 AM EDT [facility] Fentanyl <1 <1 ng/mL 09/14/2025 7:16 AM EDT [facility] Hydrocodone <50 <50 ng/mL 09/14/2025 7:16 AM EDT [facility] Hydromorphone <50 <50 ng/mL 09/14/2025 7:16 AM EDT [facility] Hydromorphone Glucuronide <50 <50 ng/mL 09/14/2025 7:16 AM EDT [facility] Lorazepam <20 <20 ng/mL 09/14/2025 7:16 AM EDT [facility] Lorazepam Glucuronide <50 <50 ng/mL 09/14/2025 7:16 AM EDT [facility] MDA <50 <50 ng/mL 09/14/2025 7:16 AM EDT [facility] MDMA <50 <50 ng/mL 09/14/2025 7:16 AM EDT [facility] Meperidine <50 <50 ng/mL 09/14/2025 7:16 AM EDT [facility] Methadone <50 <50 ng/mL 09/14/2025 7:16 AM EDT [facility] Methamphetamine <50 <50 ng/mL 7:16 AM EDT [facility] Methylphenidate <50 <50 ng/mL 7:16 AM EDT [facility] 6 Monoacetyl morphine <10 <10 ng/mL 09/14/2025 7:16 AM EDT [facility] Morphine <50 <50 ng/mL 09/14/2025 7:16 AM EDT [facility] Morphine Glucuronide <50 <50 ng/mL 08/17 7:16 AM EDT [facility] Naloxone <50 <50 ng/mL 09/14/2025 7:16 AM EDT [facility] Naloxone Glucuronide <50 <50 ng/mL 08/17 7:16 AM EDT [facility] Norbuprenorphine <10 <10 ng/mL 09/14/20 7:16 AM EDT [facility] Norbuprenorphine Glucuronide <50 <50 ng/mL 09/14/2025 7:16 AM EDT [facility] Nordiazepam <20 <20 ng/mL 09/14/2025 7:16 AM EDT [facility] Norfentanyl <2 <2 ng/mL 09/14/2025 7:16 AM EDT [facility] Normeperidine <50 <50 ng/mL 09/14/2025 7:16 AM EDT [facility] PCP Quant, Ur <50 <50 ng/mL 09/14/2025 7:16 AM EDT [facility] Phenobarbital <50 <50 ng/mL 09/14/2025 7:16 AM EDT [facility] Oxazepam <20 <20 ng/mL 09/14/2025 7:16 AM EDT [facility] Oxazepam Glucuronide <50 <50 ng/mL 08/17 7:16 AM EDT [facility] Oxycodone <50 <50 ng/mL 09/14/2025 7:16 AM EDT [facility] Oxymorphone <50 <50 ng/mL 09/14/2025 7:16 AM EDT [facility] Oxymorphone Glucuronide <50 <50 ng/mL 09/14/2025 7:16 AM EDT [facility] Secobarbital <50 <50 ng/mL 09/14/2025 7:16 AM EDT [facility] Tramadol <50 <50 ng/mL 09/14/2025 7:16 AM EDT [facility] Temazepam <20 <20 ng/mL 09/14/2025 7:16 AM EDT [facility] Temazepam Glucuronide <50 <50 ng/mL 09/14/2025 7:16 AM EDT [facility] Urine Urine specimen obtained by clean catch procedure / Unknown Non-blood Collection / Unknown 09/12/2025 7:55 AM EDT 09/12/2025 8:51 AM EDT [facility] - 09/14/2025 7:16 AM EDT This [...] Test performed by LC-MS/MS at the [facility] Special Chemistry Laboratory. This test was developed and its performance characteristics determined by [facility]. It has not been cleared or approved by the FDA. The laboratory is regulated under CLIA as qualified to perform high-complexity testing. This test is used for clinical purposes. Portia Maguire MD LAB URINE ORDERABLES Nadia l Result Performing Organization Address [facility] [place] [address] * Alpha Fetoprotein, Serum (09/12/2025 7:55 AM EDT) Alpha Fetoprotein, Serum <2.3 <10.0 ng/mL 09/12/2025 10:18 AM EDT [facility] Blood Venous blood specimen / Unknown Venipuncture / Unknown 09/12/2025 7:55 AM EDT 09/12/2025 8:46 AM EDT Narrative [facility] - 09/12/2025 10:18 AM EDT Performed by Stacey electrochemiluminescent immunoassay which is traceable to the 1st AFP IRP WHO Reference standard 72/255. Results obtained with different test methods or kits cannot be used interchangeably. Portia Maguire MD LAB BLOOD ORDERABLES Nadia l Result Performing Organization Address [facility] [place] [address] * Nicotine Cotinine Metabolite (09/12/2025 7:55 AM EDT) NICOTINE <5 <5 ng/mL 09/14/2025 10:24 AM EDT [facility] Cotinine <5 <5 ng/mL 09/14/2025 10:24 AM EDT [facility] Blood Venous blood specimen / Unknown Venipuncture / Unknown 09/12/2025 7:55 AM EDT 09/12/2025 8:46 AM EDT Narrative [facility] - 09/14/2025 10:24 AM EDT Testing performed by LC-MS/MS at the [facility] Special Chemistry/Toxicology Laboratory. This test was developed and its performance characteristics determined by [facility]. This assay has not been cleared by the FDA. The laboratory is regulated under CLIA as qualified to perform high-complexity testing. This test is used for clinical purposes. Portia Maugire MD LAB BLOOD ORDERABLES Nadia l Result Performing Organization Address [facility]/ZIP Co de Phone Number [facility] [address] [place] [address] * Alcohol Urine (09/12/2025 7:55 AM EDT) Alcohol Urine Negative Negative 09/12/2025 1:41 PM EDT [facility] Urine Urine specimen obtained by clean catch procedure / Unknown Non-blood Collection / Unknown 09/12/2025 7:55 AM EDT 09/12/2025 8:51 AM EDT Narrative [facility] - 09/12/2025 1:41 PM EDT The correlation between urine and serum ethanol concentration is highly variable. Test performed by Gas Chromatography at the [facility] Laboratory. This test was developed and its performance characteristics determined by [facility]. It has not been cleared or approved by the FDA.The laboratory is regulated under CLIA as qualified to perform high-complexity testing. This test is used for clinical purposes only. The correlation between urine and serum ethanol concentration is highly variable. Test performed by Gas Chromatography at the [facility]. This test was developed and its performance characteristics determined by [facility]. It has not been cleared or approved by the FDA.The laboratory is regulated under CLIA as qualified to perform high-complexity testing. This test is used for clinical purposes only. Portia Maguire MD LAB URINE ORDERABLES Nadia l Result Performing Organization Address City/[facility]/ZIP Co de Phone Number [facility] [address] [place] [address] * Comprehensive Urine Drug Screening, Qualitative Assay, >= 27 Drug Classes (09/12/2025 7:55 AM EDT) Acetaminophen Negative Negative 09/16/2025 3:50 AM EST [facility] Alprazolam Negative Negative 09/16/2025 3:50 AM EST [facility] Amantadine Negative Negative 09/16/2025 3:50 AM EST [facility] Amitriptyline Negative Negative 09/16/2025 3:50 AM EST [facility] Amphetamine Negative Negative 09/16/2025 3:50 AM EST [facility] Atenolol Negative Negative 09/16/2025 3:50 AM EST [facility] Benzoylecgonine Negative Negative 3:50 AM EST [facility] Bisoprolol Negative Negative 09/16/2025 3:50 AM EST [facility] Bupropion Negative Negative 09/16/2025 3:50 AM EST [facility] Butalbital Negative Negative 09/16/2025 3:50 AM EST [facility] Carbamazepine Negative Negative 09/16/2025 3:50 AM EST [facility] Carisoprodol Negative Negative 09/16/2025 3:50 AM EST [facility] Chlorpheniramine Negative Negative 09/16/20 3:50 AM EST [facility] Citalopram Negative Negative 09/16/2025 3:50 AM EST [facility] Clindamycin Negative Negative 09/16/2025 3:50 AM EST [facility] Clonidine Negative Negative 09/16/2025 3:50 AM EST [facility] Clopidogrel / Ticlopidine Negative Negative 09/16/2025 3:50 AM EST [facility] Cocaethylene Negative Negative 09/16/2025 3:50 AM EST [facility] Cocaine Negative Negative 09/16/2025 3:50 AM EST [facility] Codeine Negative Negative 09/16/2025 3:50 AM EST [facility] Cyclobenzaprine Negative Negative 3:50 AM EST [facility] Desvenlafaxine Negative Negative 09/16/2025 3:50 AM EST [facility] Dextromethorphan Negative Negative 09/16/20 3:50 AM EST [facility] Diazepam Negative Negative 09/16/2025 3:50 AM EST [facility] Diltiazem Negative Negative 09/16/2025 3:50 AM EST [facility] Diphenhydramine Negative Negative 3:50 AM EST [facility] Doxepine Negative Negative 09/16/2025 3:50 AM EST [facility] Doxylamine Negative Negative 09/16/2025 3:50 AM EST [facility] EDDP-Methadone metabolite Negative Negative 09/16/2025 3:50 AM EST [facility] Fentanyl Negative Negative 09/16/2025 3:50 AM EST [facility] Fluconazole Negative Negative 09/16/2025 3:50 AM EST [facility] Fluoxetine Negative Negative 09/16/2025 3:50 AM EST [facility] Guaifenesin Negative Negative 09/16/2025 3:50 AM EST [facility] Haloperidol Negative Negative 09/16/2025 3:50 AM EST [facility] Heroin/6-MARY Negative Negative 09/16/2025 3:50 AM EST [facility] Hydrocodone Negative Negative 09/16/2025 3:50 AM EST [facility] Hydroxyzine / Cetirizine metabolite Negative Negative 09/16/2025 3:50 AM EST [facility] Ibuprofen Negative Negative 09/16/2025 3:50 AM EST [facility] Imipramine Negative Negative 09/16/2025 3:50 AM EST [facility] Ketamine Negative Negative 09/16/2025 3:50 AM EST [facility] Labetolol Negative Negative 09/16/2025 3:50 AM EST [facility] Lamotrigine Negative Negative 09/16/2025 3:50 AM EST [facility] Levetiracetam Negative Negative 09/16/2025 3:50 AM EST [facility] Lidocaine Negative Negative 09/16/2025 3:50 AM EST [facility] MDA Negative Negative 09/16/2025 3:50 AM EST [facility] MDMA Negative Negative 09/16/2025 3:50 AM EST [facility] Memantine Negative Negative 09/16/2025 3:50 AM EST [facility] Meperidine Negative Negative 09/16/2025 3:50 AM EST [facility] Meprobamate Negative Negative 09/16/2025 3:50 AM EST [facility] Metaxalone Negative Negative 09/16/2025 3:50 AM EST [facility] Methamphetamine Negative Negative 3:50 AM EST [facility] Methocarbamol Negative Negative 09/16/2025 3:50 AM EST [facility] Methylecgonine Negative Negative 09/16/2025 3:50 AM EST [facility] Metoclopramide Negative Negative 09/16/2025 3:50 AM EST [facility] Metoprolol Negative Negative 09/16/2025 3:50 AM EST [facility] Metronidazole Negative Negative 09/16/2025 3:50 AM EST [facility] Midazolam Negative Negative 09/16/2025 3:50 AM EST [facility] Midazolam Metabolite Negative Negative 12/2024 3:50 AM EST [facility] Mirtazapine Negative Negative 09/16/2025 3:50 AM EST [facility] Misc Test Result Negative Negative 09/16/20 3:50 AM EST [facility] Naproxen Negative Negative 09/16/2025 3:50 AM EST [facility] Nefazodone Negative Negative 09/16/2025 3:50 AM EST [facility] Norfentanyl Negative Negative 09/16/2025 3:50 AM EST [facility] Nortriptyline Negative Negative 09/16/2025 3:50 AM EST [facility] Ordanstron Negative Negative 09/16/2025 3:50 AM EST [facility] Oxcarbazepine Negative Negative 09/16/2025 3:50 AM EST [facility] Oxycodone Negative Negative 09/16/2025 3:50 AM EST [facility] Paroxethine Negative Negative 09/16/2025 3:50 AM EST [facility] Phenobarbital Negative Negative 09/16/2025 3:50 AM EST [facility] Phentermine Negative Negative 09/16/2025 3:50 AM EST [facility] Phenytoin Negative Negative 09/16/2025 3:50 AM EST [facility] Primidone Negative Negative 09/16/2025 3:50 AM EST [facility] Promethazine Negative Negative 09/16/2025 3:50 AM EST [facility] Propofol Negative Negative 09/16/2025 3:50 AM EST [facility] Propranolol Negative Negative 09/16/2025 3:50 AM EST [facility] Quetiapine Negative Negative 09/16/2025 3:50 AM EST [facility] Quinine Negative Negative 09/16/2025 3:50 AM EST [facility] Rantidine Negative Negative 09/16/2025 3:50 AM EST [facility] Sertraline Negative Negative 09/16/2025 3:50 AM EST [facility] Spironolactone Negative Negative 09/16/2025 3:50 AM EST [facility] Tizanidine Negative Negative 09/16/2025 3:50 AM EST [facility] Topiramate Negative Negative 09/16/2025 3:50 AM EST [facility] Tramadol Negative Negative 09/16/2025 3:50 AM EST [facility] Trazadone/ Trazadone metabolite Negative Negative 09/16/2025 3:50 AM EST [facility] Trimethoprim Negative Negative 09/16/2025 3:50 AM EST [facility] Valproic Acid Negative Negative 09/16/2025 3:50 AM EST [facility] Venlafaxine Negative Negative 09/16/2025 3:50 AM EST [facility] Verapamil Negative Negative 09/16/2025 3:50 AM EST [facility] Zolpidem Negative Negative 09/16/2025 3:50 AM EST [facility] Xylazine Negative Negative 09/16/2025 3:50 AM EST [facility] Urine Urine specimen obtained by clean catch procedure / Unknown Non-blood Collection / Unknown 09/12/2025 7:55 AM EDT 09/12/2025 8:51 AM EDT us Portia Maguire MD LAB URINE ORDERABLES Nadia crockett Result [facility] [address] [place] [address] * HIV 1 & 2 Antibody/Antigen Screen (06/14/2025 6:31 PM EDT) Pathologist [facility] HIV 1 & 2 Antibody/Antigen Screen Non [...] l Result [facility] [address] [place] [address] * Hepatitis C Antibody (06/14/2025 6:31 PM EDT) Pathologist [facility] Hepatitis C Antibody Negative Negative 06/14/2025 7:45 PM EDT [facility] Blood Venous blood specimen / Unknown Venipuncture / Unknown 06/14/2025 6:31 PM EDT 06/14/2025 7:05 PM EDT us Luis Angel Bee MD LAB BLOOD ORDERABLES Nadia l Result Performing Organization Address City/[facility]/[place] [address] * Dexa Bone Density (06/08/2025 8:35 AM EDT) Anatomical Region Laterality Modality L-spine Radiographic Liseth ging Narrative 06/17/2025 10:07 PM EDT [facility] [address] [place] [address] DXA Bone Densitometry Report: [06/08/2025] BMD test performed using the [employer] DXA System (analysis version: 14.10) manufactured by [employer]. REFERRING PROVIDER: Dr. Moustapha Katz MD CLINICAL [...] of change in BMD). Moustapha Katz MD [facility] DXA PROCEDURES Final Resul t from Last 3 Months or Most Recently Relevant to Health Maintenance Insurance [facility] [address] [place] [id number] ANTHEM Advance Directives Documents on File Type Date Recorded Patient Township Clerk Expl anation Power of Teacher Education Director 07/11/2025 POA / Trudy ng Will Care Teams Christian Counselor Relationship Specialty Start Date End Date Chris Medel MD [id number] PCP - General 03/14/25 Ruma Hernández APRN [phone] [facility] [address] [place] [address] Referring Physician Gastroenterology 07/30/23
--- OUTSIDE RECORDS SUMMARY | 2025-10-29 07:48 | XMS_ITS | Encounter Summary ---
Author Organization [facility] Address [address] [place] [address] Care Team Providers Care Density Control Puncher Name Role Phone System, Provider Not In [...] release of HIV test results or diagnoses. [id number] Health Encounter Details Date Type Department Care Team (Late st Contact Info) Description 09/24/2025 Orders Only [facility] Liver Transplant at [address] [address] Chapito Alcantar, SILVIO Alcoholic cirrhosis of liver [...] - 15.1 seconds 09/24/2025 3:06 PM EST [facility] INR 1.9(H) 0.9 - 1.1 09/24/2025 3:06 PM EST [facility] Comment: RECOMMENDED THERAPEUTIC RANGES USING INR : Stable oral anticoagulant therapy: 2.0 - 3.0 Mechanical prosthetic heart valve: 2.5 - 3.5 Recurrent acute myocardial infarction: 2.5 - 3.5 Plasma 09/24/2025 2:11 PM EST 09/24/2025 2:43 PM EST Nigel Reaves MD LAB BLOOD ORDERABLES Final Resul t [facility] [address] * (ABNORMAL) Renal Function Panel w/EGFR (09/24/2025 2:11 PM EST) Pathologist [facility] Sodium 137 133 - 146 mmol/L 09/24/2025 6:36 PM EST [facility] Potassium 3.9 3.5 - 5.3 mmol/L 09/24/2025 6:36 PM EST [facility] Chloride 104 98 - 110 mmol/L 09/24/2025 6:36 PM EST [facility] CO2 29 21 - 33 mmol/L 09/24/2025 6:36 PM EST [facility] Comment:High lactate dehydro genase concentrations in patient samples may cause falsely increased bicarbonate results. If markedly elevated LDH is observed or suspected, please assess results in conjunction with patient`s clinical presentation. In cases of discrepant results, consider evaluating CO2 in with a blood gas order. Anion Gap 4 3 - 16 mmol/L 09/24/2025 6:36 PM EST [facility] BUN 13 7 - 25 mg/dL 09/24/2025 6:36 PM EST [facility] Creatinine 0.84 0.60 - 1.30 mg/dL 09/24/2025 6:36 PM EST [facility] Glucose 98 70 - 100 mg/dL 09/24/2025 6:36 PM EST [facility] Calcium 8.1(L) 8.6 - 10.3 mg/dL 09/24/2025 6:36 PM EST [facility] Phosphorus 3.5 2.1 - 4.7 mg/dL 09/24/2025 6:36 PM EST [facility] Albumin 2.0(L) 3.5 - 5.7 g/dL 09/24/2025 6:36 PM EST [facility] Osmolality, Calculated 284 278 - 305 mOsm/kg 09/24/2025 6:36 PM EST [facility] EGFR >90 09/24/2025 6:36 PM EST [facility] Comment: As of 2022, the estimated [...] Resul t [facility] [address] [place] [address], [facility] * (ABNORMAL) Hepatic Function Panel (09/24/2025 2:11 PM EST) Total Bilirubin 3.4(H) 0.0 - 1.5 mg/dL 09/24/2025 6:36 PM EST [facility] Bilirubin, Direct 1.07(H) 0.00 - 0.40 mg/dL 09/24/2025 6:36 PM EST [facility] AST 37 13 - 39 U/L 09/24/2025 6:36 PM EST [facility] ALT 22 7 - 52 U/L 09/24/2025 6:36 PM EST [facility] Alkaline Phosphatase 142(H) 36 - 125 U/L 09/24/2025 6:36 PM EST [facility] Total Protein 5.8(L) 6.4 - 8.9 g/dL 09/24/2025 6:36 PM EST [facility] Albumin 2.0(L) 3.5 - 5.7 g/dL 09/24/2025 6:36 PM EST [facility] Bilirubin, Indirect 2.33(H) 0.00 - 1.10 mg/dL 09/24/2025 6:36 PM EST [facility] Plasma 09/24/2025 2:11 PM EST 09/24/2025 5:52 PM EST us Nigel Reaves MD LAB BLOOD ORDERABLES Final Resul t [facility] [address] [place] [address], [facility] documented in this encounter Visit Diagnoses Diagnosis Alcoholic cirrhosis of liver with ascites (CMS-HCC)- Primary Pre-transplant evaluation for chronic liver disease documented in this encounter Additional Health Concerns Assessment Noted Time PHQ-9 Depression Total Score: 8 09/10/20 25 11:09 AM EDT documented as of this encounter Care Teams Density Control Puncher Relationship Specialty Start Date End Date System, Provider Not In PCP - General 09/10/25 10/24/25 documented as of this encounter
--- OUTSIDE RECORDS SUMMARY | 2025-10-29 07:48 | XMS_ITS | Encounter Summary ---
Author Organization Healthcare Address [address] [place] [address] Care Team Providers Care Senior Talent Management Consultant Name Role Phone Ruma Hernández CUSTOMS ENTRY WRITER Unavailable [phone] Chris Medel MD Primary Care Provider [phone] Encounter Details Date Type Department Care Team (Late st Contact Info) Description 10/08/2025 Orders Only [facility] Medicine Specialties [address] [place] [id number] Provider, [place] [address] [address] [place] [phone] Social History Tobacco Use Types Packs/Day Years [...] do you attend [facility] health [facility] or synagogue services? More than 4 times per year 02/19/2025 Do you belong to any clubs o r organizations such as baptist groups, unions, [employer] or athletic groups, or school groups? [...] and heating? Not hard at all 06/15/2025 [facility] - Occupational Stress Questionnaire Answer Date Recorded [...] in the past 12 m [facility], were you homeless or living in a [...] drink first t luisa in the morning (EYE-PRINT BINDING AND FINISHING WORKER) to steady your nerves or to get rid of a hangover? 0 06/14/2025 CAGE Questionnaire Score 0 025 Utilities Answer Date Recorded In the past 12 months has th e [employer], gas, oil, or water [employer] threatened to shut off services in your [...] [facility], [address] [place] [address] Suhail Brock MD [address] [facility] [address] [place] [address] documented as of this encounter Procedures Procedure Name Priority Date/Time Associated Diagnosis Comments COMPLETE METABOLIC PROFILE (CMP) Routine 10/08/2025 10:14 AM EST APTT Routine 10/08/2025 10:14 AM EST PROTHROMBIN TIME(PT) / INR Routine 10/08/2025 10:14 AM EST CBC WITH AUTO DIFFERENTIAL Routine 10/08/2025 10:14 AM EST documented in this encounter Results * COMPLETE METABOLIC PROFILE (CMP) (10/08/2025 10:14 AM EST) us Historical Provider LAB BLOOD ORDERABLES Final [...] EST) Blood Venous blood specimen / Unknown [facility] Provider LAB BLOOD ORDERABLES Final R [...] as of this encounter Care Teams Senior Talent Management Consultant Relationship Specialty [place] [id number] PCP - General 03/14/25 Ruma Hernández APRN [address] [facility] [address] [place] [address] Referring Physician Gastroenterology 07/30/23 documented as of this encounter
--- OUTSIDE RECORDS SUMMARY | 2025-10-29 07:48 | XMS_ITS | Encounter Summary ---
Author Organization [facility] Address [address] [place] [address] Care Team Providers Care Tablet Making Machine Operator Helper Name Role Phone System, [...] release of HIV test results or diagnoses. [id number] Health Encounter Details Date Type Department Care Team (Late st Contact Info) Description 10/23/2025 Orders Only [facility] Liver Transplant at [address] [address] Giovanna June, RN Liver replaced by transplant ([facility]) (Primary Dx) Social History Tobacco Use Types [...] any time in the past 12 m [facility], were you homeless or [...] Associated Diagnoses Orde r Schedule US Duplex Jdy-Gxs-Iixittx Comp Imaging Routine Liver replaced by transplant [...] documented as of this encounter Care Teams Tablet Making Machine Operator Helper Relationship Specialty Start Date End Date System, Provider Not In PCP - General 09/10/25 10/24/25 documented as of this encounter
--- OUTSIDE RECORDS SUMMARY | 2025-10-29 07:48 | XMS_ITS | Encounter Summary ---
[facility] Organization [facility] Address [address] [place] [address] Care Team Providers Care Pantograph I Engraver Name Role Phone KaronUrban Hosea CAMARA Primary Care Provider [phone] Encounter Details Date Type Department Care Team (Late st Contact Info) Description 10/14/2023 Telephone [facility] GASTROENTEROLOGY [address] [facility] [address] [place] [address] Ruma Hernández, CLEARANCE REPRESENTATIVE [address] [facility] [address] [place], [place] [id number] Social History Tobacco Use Types Packs/Day Years [...] on filedocumented in this encounter Care Teams Pantograph I Engraver Relationship Specialty Start Date End Date Urban Brantley DO [address] [place] [address] PCP - General Internal Medicine 03/22/23 documented as of this encounter
--- OUTSIDE RECORDS SUMMARY | 2025-10-29 07:48 | XMS_ITS | Encounter Summary ---
Author Organization [facility] Address [address] [place] [address] Care Team Providers Care Extraction Supervisor Name Role Phone System, Provider Not [...] release of HIV test results or diagnoses. [id number] Health Encounter Details Date Type Department Care Team (Late st Contact Info) Description 09/20/2025 Chart Note [facility] Liver Transplant at [address] [address] Chapito Alcantar RN Spoke with patient's spouse [...] documented as of this encounter Care Teams Extraction Supervisor Relationship Specialty Start Date End Date System, Provider Not In PCP - General 09/10/25 10/24/25 documented as of this encounter
--- OUTSIDE RECORDS SUMMARY | 2025-10-29 07:48 | XMS_ITS | Encounter Summary ---
Author Organization [facility] Address [address] [place] [address] Care Team Providers Care School Librarian Name Role Phone System, Provider Not In [...] release of HIV test results or diagnoses. [id number] Health Encounter Details Date Type Department Care Team (Late st Contact Info) Description 10/19/2025 Education Chart Note [facility] Liver Transplant at [address] [address] Giovanna June, RN Social History Tobacco Use [...] the past 12 months has th e [employer], gas, oil, or water [employer] threatened to shut off services in your [...] of Infection/Rejection [x] 5. When to call home coordinator [x] 6. Outpatient follow up including [...] documented as of this encounter Care Teams School Librarian Relationship Specialty Start Date End Date System, Provider Not In PCP - General 09/10/25 10/24/25 documented as of this encounter
--- OUTSIDE RECORDS SUMMARY | 2025-10-29 07:48 | XMS_ITS | Encounter Summary ---
Author Organization [facility] Address [address] [place] [address] Care Team Providers Care Inspector Circuitry Negative Name Role Phone System, Provider Not In [...] release of HIV test results or diagnoses. [id number] Health Encounter Details Date Type Department Care Team (Late st Contact Info) Description 10/22/2025 Orders Only [facility] Liver Transplant at [address] [address] Ruma Benjamin, SILVIO S/P liver transplant ([facility]) (Primary Dx); Immunosuppression ([facility]) Social History Tobacco Use Types Packs/Day Years [...] Function Panel Lab Routine S/P liver transplant (CMS-HCC) Immunosuppression [...] as of this encounter Care Teams Inspector Circuitry Negative Relationship Specialty Start Date End Date System, Provider Not In PCP - General 09/10/25 10/24/25 documented as of this encounter
--- OUTSIDE RECORDS SUMMARY | 2025-10-29 07:48 | XMS_ITS | Encounter Summary ---
Author Organization [facility] Address [address] [place] [address] Care Team Providers Care Coke Worker Name Role Phone System, Provider Not In Primary Care Provider Un available Dr. Chris Medel MD Primary Care Provider [...] release of HIV test results or diagnoses. [id number] Health Encounter Details Date Type Department Care Team (Late st Contact Info) Description 10/22/2025 Orders Only [facility] Liver Transplant at [address] [address] Felice Nugent III, MD [address] [place] [address] Liver replaced by transplant ([facility]) (Primary Dx); Immunosuppressive management encounter following liver transplant ([facility]) Social History Tobacco Use Types Packs/Day [...] SILVIO Anti-Embolism Intervention Off 10/22/2025 12:00 PM EST Bowling, Karolyn, RN documented as of this encounter Plan of Treatment Not on file documented as of this encounter Visit Diagnoses Diagnosis Liver replaced by transplant ([facility])- Primary Liver replaced by transplant Immunosuppressive management encounter following liver transplant (CMS-HCC) documented in this encounter Additional Health Concerns Assessment Noted Time PHQ-9 Depression Total Score: 8 09/10/20 11:09 AM EDT documented as of this encounter Care Teams Coke Worker Relationship Specialty Start Date End Date System, Provider Not In PCP - General 09/10/25 10/24/25 Dr. Chris Medel MD [address] [place] [address] PCP - General Primary Care 10/25/25 documented as of this encounter
--- OUTSIDE RECORDS SUMMARY | 2025-10-29 07:48 | XMS_ITS | Encounter Summary ---
Author Organization [facility] Address [address] [place] [address] Care Team Providers Care Pre Assembly Wirer Name Role Phone System, Provider Not In [...] release of HIV test results or diagnoses. [id number] Health Encounter Details Date Type Department Care Team (Late st Contact Info) Description 10/18/2025 Chart Note [facility] Kidney Transplant at [address] [address] Ailin Wells Txp Patient Called In Social [...] Date:10/17/2025 Organ: Liver Primary Ins: Jayy [employer] Assembly I Laborer: Serena Carter ext [phone] Txp Auth:[id number] Dates:09/24/2025-09/23/2026 Admit Auth: IV to obtain RX:[place] documented in this encounter Plan of Treatment Not on file documented as of this encounter Visit Diagnoses Not on filedocumented in this encounter Additional Health Concerns Assessment Noted Time PHQ-9 Depression Total Score: 8 09/10/20 11:09 AM EDT documented as of this encounter Care Teams Pre Assembly Wirer Relationship Specialty Start Date End Date System, Provider Not In PCP - General 09/10/25 10/24/25 documented as of this encounter
--- OUTSIDE RECORDS SUMMARY | 2025-10-29 07:48 | XMS_ITS | Encounter Summary ---
[facility] Organization [facility] Address [address] [place] [address] Care Team Providers Care Department Store Manager Name Role Phone KaronUrban Hosea CAMARA Primary Care Provider [phone] Encounter Details Date Type Department Care Team (Late st Contact Info) Description 10/14/[address] [facility] GASTROENTEROLOGY [address] [facility] [address] [place] [address] Ruma Hernández, CHECKER STOCKER 17[address] [facility] [address] [place], [place] [id number] Social History Tobacco Use Types Packs/Day Years [...] on filedocumented in this encounter Care Teams Department Store Manager Relationship Specialty Start Date End Date Urban Brantley DO [address] [place] [address] PCP - General Internal Medicine 03/22/23 documented as of this encounter
--- OUTSIDE RECORDS SUMMARY | 2025-10-29 07:48 | XMS_ITS | Encounter Summary ---
Author Organization Healthcare Address [address] [place] [address] Care Team Providers Care Tool Trouble Shooter Name Role Phone Ruma Hernández IMMIGRATION COORDINATOR Unavailable [phone] Chris Medel MD Primary Care Provider [phone] Reason for Visit * Reason Comments Med Refill Encounter Details Date Type Department Care Team (Late st Contact Info) Description 10/02/2025 [facility] [address] [place] [address] Portia Maguire MD [address] [place] [address] Pre-liver transplant, listed (Primary Dx); [...] r organizations such as congregational groups, unions, [employer] or athletic groups, or school groups? Yes [...] r organizations such as congregational groups, unions, [employer] or athletic groups, or school groups? Yes [...] at all 06/15/2025 [facility] Occupat ional Health - Occupational Stress [...] drink first t luisa in the morning (EYE-DIRECTIONAL DRILLER) to steady your nerves or to get [...] Upcoming Encounters Date Type Department Care Team ([facility] st Contact Info) Description 11/27/2025 3:45 PM EST Office Visit Medical Office Building Urology [address] [facility], [address] [place] [address] Suhail Brock MD [address] [facility] [address] [place] [phone] documented as of this encounter Visit Diagnoses [...] as of this encounter Care Teams Tool Trouble Shooter Relationship Specialty Start Date End Date Chris Medel [place] [id number] PCP - General 03/14/25 Ruma Hernández APRN [address] [facility] [address] [place] [address] Referring Physician Gastroenterology 07/30/23 documented as of this encounter
--- OUTSIDE RECORDS SUMMARY | 2025-10-29 07:48 | XMS_ITS | Encounter Summary ---
Author Organization Healthcare Address [address] [place] [address] Care Team Providers Care An/Sqq 89(V)15 Sonar System Journeyman Name Role Phone Ruma Hernández CANDY CUTTER MACHINE Unavailable [phone] Chris Medel MD Primary Care Provider [phone] Encounter Details Date Type Department Care Team (Late st Contact Info) Description 08/01/2025 Results Follow-Up [facility] Transplant Center [address] [place] [phone] Meaghan Le, RN [facility] LIVER [id number] [address] [place] [address] Social History Tobacco Use Types Packs/Day Years [...] do you attend [facility] or evangelical services? More than 4 times per year 02/19/2025 Do you belong to any clubs o r organizations such as samaritan groups, unions, [employer] or athletic groups, or school groups? Yes [...] hard at all 06/15/2025 [facility] - Occupational Stress Questionnaire [...] time in the past 12 m [facility], were you homeless or living in a [...] drink first t luisa in the morning (EYE-PLUMBING FOREMAN) to steady your nerves or to get rid of a hangover? 0 06/14/2025 CAGE Questionnaire Score 0 025 Utilities Answer Date Recorded In the past 12 months has th e [employer], gas, oil, or water [employer] threatened to shut off services in your [...] [address] [facility], [address] [place] [address] Suhail Brock MD [address] [facility] [address] [place] [address] documented as of this encounter Visit Diagnoses [...] documented as of this encounter Care Teams An/Sqq 89(V)15 Sonar System Journeyman Relationship Specialty Start [place] [address] PCP - General 03/14/25 Ruma Hernández APRN [address] [facility] [address] [place] [address] Referring Physician Gastroenterology 07/30/23 documented as of this encounter
--- OUTSIDE RECORDS SUMMARY | 2025-10-29 07:48 | XMS_ITS | Encounter Summary ---
Author Organization [facility] Address [address] [place] [address] Care Team Providers Care Security Compliance Engineer Name Role Phone System, Provider Not [...] release of HIV test results or diagnoses. [id number] Health Encounter Details Date Type Department Care Team (Late st Contact Info) Description 10/22/2025 Chart Note [facility] Liver Transplant at [address] [address] Cori Womack, PharmD Liver Transplant Pharmacy Discharge [...] Notes * Cori Womack, PharmD - 10/22/2025 6:48 PM EST Images from the original note were not included. 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, MZ A1AT (level low at 77)) Discharge date: 10/22 Discharge location: Home CMV status:D-/R- EBV status: D+/R+ Toxo status:D-/R- Study: NA Pain protocol: B Donor HCV Serologies: Anti-HCV Negative, HCV NII Negative Donor HBV Serologies: HBcAb Negative, HBV NII Negative Vitamin D level: 39.3 Immunosuppression: Standard Discharge Medications: Maintenance Immunosuppression Comment Immunosuppressions Medications Glucocorticoids predniSONE (DELTASONE) 5 MG tablet Sig: Take 6 tablets by mouth in the morning on 10/23, then take 5 tablets by mouth on 10/24, and then starting on 10/25, take 4 tablets daily Immunosuppressive - Calcineurin Inhibitors tacrolimus (PROGRAF) 1 MG capsule Sig - Route: Take 5 capsules (5 mg total) by mouth 2 times a day. - Oral Immunosuppressive - Inosine Monophosphate Dehydrogenase Inhibitors mycophenolate (CELLCEPT) 250 mg capsule Sig - Route: Take 2 capsules (500 mg total) by mouth 2 times a day. - Oral Lab Results Component Value Date/Time TACROLMSLCMS 4.0 10/22/2025 0948 Last Dose Change: increased from 3/3 to 5/5 on 10/22 Trough Goals: 10-12 ng/mL PJP Prophylaxis Per Protocol Stop Date Bactrim 3 months from start date: 01/15/2026 Antiviral Prophylaxis Per Protocol Stop Date Acyclovir 1 month from start date: 11/17/2025 Antifungal Prophylaxis Per Protocol Stop Date None Not applicable Extended VTE Prophylaxis Per Protocol Stop Date Based on Caprini Score of 10, extended prophylaxis would typically be recommended for 30 days, however as Mr. Pop's platelets have been consistently below 30 since transplant and [facility] was held inpatient, the team decided on the day of discharge to not send the patient out without apixaban and instead instruct the patient to ambulate frequently. Patient not discharged with Caprini ppx. If platelets improve and clinically appropriate could start outpatient. Antidiabetic Medications Not Diabetic prior to OLT Diabetes Medications Insulin Analogs - Rapid Acting insulin lispro 100 unit/mL InPn Sig: Administer insulin with meals per sliding scale: Blood glucose 150-199 mg/dL =1units, Blood glucose 200-249 mg/dL =2 units, Blood glucose 250-299 mg/dL =3 units, Blood glucose 300-349 mg/dL =4 units, Blood glucose greater than 349 mg/dL = 5 units Complete Medication List: Outpatient Medications as of 10/22/2025 Directions acetaminophen (TYLENOL) 325 MG tablet Take 3 tablets (975 mg total) by mouth every 8 hours. acyclovir (ZOVIRAX) 400 MG tablet Take 2 tablets (800 mg total) by mouth 2 times a day. alcohol swabs PadM Use as instructed. blood sugar diagnostic (GLUCOSE BLOOD) Strp Use to test blood sugar four times a day. blood-glucose meter Misc Use to test blood sugar four times a day. calcium-vitamin D 500 mg-5 mcg (200 unit) per tablet Take 1 tablet by mouth 2 times a day with meals. Was on ergocalciferol PRESS WORKER HELPER but vitamin D level inpatient >20 furosemide (LASIX) 40 MG tablet Take 1 tablet (40 mg total) by mouth daily. 7 day supply - if labs determine that patient needs to continue, will need a new prescription insulin lispro 100 unit/mL InPn Administer insulin with meals per sliding scale: Blood glucose 150-199 mg/dL =1units, Blood glucose 200-249 mg/dL =2 units, Blood glucose 250-299 mg/dL =3 units, Bloodglucose 300-349 mg/dL =4 units, Blood glucose greater than 349 mg/dL = 5 units Low dose sliding scale to avoid lows as we suspect patient will not need much insulin when on lower prednisone doses lancets Misc Use to test blood sugar four times a day. methocarbamoL (ROBAXIN) 500 MG tablet Take 1 tablet (500 mg total) by mouth 3 times a day. mycophenolate (CELLCEPT) 250 mg capsule Take 2 capsules (500 mg total) by mouth 2 times a day. NIFEdipine (PROCARDIA-XL) 30 MG (OSM) 24 hr tablet Take 1 tablet (30 mg total) by mouth daily. New start BP med (previously on coreg for varices) oxyCODONE (ROXICODONE) 5 MG immediate release tablet Take 1 tablet (5 mg total) by mouth every 8 hours as needed for up to 3 days. pantoprazole (PROTONIX) 40 MG tablet Take 1 tablet (40 mg total) by mouth every morning before breakfast. On PPI PRESS WORKER HELPER pen needle, diabetic 32 gauge x 5/32 Ndle For use with insulin pen. Use as instructed. polyethylene glycol (GLYCOLAX) 17 gram/dose powder Mix 1 capful (17 g) in 8 ounces of fluid and drink by mouth daily as needed for constipation. potassium chloride (KLOR-CON) 10 MEQ CR tablet Take 1 tablet (10 mEq total) by mouth daily. 7 day supply - if labs determine that patient needs to continue, will need a new prescription predniSONE (DELTASONE) 5 MG tablet Take 6 tablets by mouth in the morning on 10/23, then take 5 tablets by mouth on 10/24, and then starting on 10/25, take 4 tablets daily senna-docusate (SENNOSIDES-DOCUSATE SODIUM) 8.6-50 mg per tablet Take 1 tablet by mouth at bedtime as needed for constipation. sod phos di, mono-K phos mono (PHOSPHORUS) 250 mg Tab tablet Take 250 mg by mouth 2 times a day. 7 day supply - if labs determine that patient needs to continue, will need a new prescription sulfamethoxazole-trimethoprim (BACTRIM) 400-80 mg per tablet Take 1 tablet by mouth daily. tacrolimus (PROGRAF) 1 MG capsule Take 5 capsules (5 mg total) by mouth 2 times a day. The following home medications were discontinued in hospital: calcitRIOL (ROCALTROL) 0.25 MCG capsule Comments: Reason for Stopping: ergocalciferol (ERGOCALCIFEROL) 1,250 mcg (50,000 unit) capsule Comments: Reason for Stopping: omeprazole (PRILOSEC) 20 MG capsule Comments: Reason for Stopping: spironolactone (ALDACTONE) 50 MG tablet Comments: Reason for Stopping: XIFAXAN 550 mg Tab tablet Comments: Reason for Stopping: Rejection during txp hospitalization (+ treatment given, where applicable): None The following issues are to be addressed as an outpatient: ASCVD Risk: ASCVD Risk: 11.3 % without a risk enhancing factor so no statin was started Not interested in pemgarda 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
--- OUTSIDE RECORDS SUMMARY | 2025-10-29 07:48 | XMS_ITS | Encounter Summary ---
Author Organization [facility] Address [address] [place] [address] Care Team Providers Care Senior Web Engineer Name Role Phone System, Provider Not [...] release of HIV test results or diagnoses. [id number] Health Encounter Details Date Type Department Care Team (Late st Contact Info) Description 09/21/2025 Refill [facility] I[facility] at [facility] [address] [place] [phone] Arturo Gibson, RN Social History Tobacco Use [...] as of this encounter Care Teams Senior Web Engineer Relationship Specialty Start Date End Date System, Provider Not In PCP - General 09/10/25 10/24/25 documented as of this encounter
--- OUTSIDE RECORDS SUMMARY | 2025-10-29 07:50 | XMS_ITS | Encounter Summary ---
Author Organization [facility] Address [address] [place] [address] Care Team Providers Care Gas Plumber Name Role Phone Unknown, Attending Provider Primary [...] release of HIV test results or diagnoses. [id number] Reason for Referral * Imaging/Cardiovascular Scan (Routine) - New Request Specialty Diagnoses / Procedures Referred By Contac t Referred To Contact Radiology Procedures CT Abdomen and or Pelvis Outside Exam System, Provider Not In [address] [address] Referral ID Status Reason Start Date Expiration Date V isits Requested Visits Authorized [id number] New Request 09/08/2025 03/07/2026 1 1 Encounter Details Date Type Department Care Team (Late st Contact Info) Description 04/21/2024 Orders Only EXTERNAL PROV RESULTS [address] [place] [address] System, Provider Not In Social History Tobacco [...] on filedocumented in this encounter Care Teams Gas Plumber Relationship Specialty Start Date End Date Unknown, Attending Provider PCP - General 08/29/2508/16 System, Provider Not In PCP - General 09/10/25 10/24/25 Dr. Chris Medel MD [address] [place] [address] PCP - General Primary Care 10/25/25 documented as of this encounter
--- OUTSIDE RECORDS SUMMARY | 2025-10-29 07:50 | XMS_ITS | Encounter Summary ---
Author Organization [facility] Address [address] [place] [address] Care Team Providers Care Filter Tank Tender Name Role Phone System, Provider [...] release of HIV test results or diagnoses. [id number] Health Encounter Details Date Type Department Care Team (Late st Contact Info) Description 10/24/2025 Chart Note [facility] Liver Transplant at [address] [place] [phone] Pita Pike MA FK pend [facility] Social History Tobacco Use Types Packs/Day Years [...] living in a long-term (including now)? No 10/17/2025 Utilities Answer Date [...] as of this encounter Progress Notes * Pita Pike MA - 10/24/2025 8:57 AM EST FK pend [facility] documented in this encounter Plan of Treatment Not on file documented as of this encounter Procedures Procedure Name Priority Date/Time Associated Diagnosis Comments HEPATIC FUNCTION PANEL Routine 10/24/2025 7:23 AM EST TACROLIMUS LEVEL Routine 10/24/2025 7:23 AM EST CBC AND DIFFERENTIAL Routine 10/24/2025 7:23 AM EST CBC AND DIFFERENTIAL Routine 10/24/2025 7:23 AM EST RENAL FUNCTION PANEL W/O EGFR Routine 10/24/2025 7:23 AM EST documented in this encounter Results * Tacrolimus level (10/24/2025 7:23 AM EST) Pathologist [facility] Tacrolimus Lvl 6.4 6 - 15 ng/mL Whole Blood Result Critical access hospital MD LAB BLOOD ORDERABLES Nadia l Result * (ABNORMAL) Renal Function Panel w/o EGFR (10/24/2025 7:23 AM EST) [facility] Glucose 100 BUN 16 CO2 28(A) 13 - 22 mmol/L Creatinine 0.90 Potassium 3.4 Sodium 136 Chloride 105 Phosphorus 3 2.5 - 4.9 mg/dL Calcium 7.7 EGFR 85 mg/dL Albumin 2.3(A) 3.5 - 5.0 g/dL Blood Result [facility] hospital MD LAB BLOOD ORDERABLES Nadia l Result * Hepatic Function Panel (10/24/2025 7:23 AM EST) [facility] Bilirubin, Direct 0.4 Bilirubin, Indirect 0.6 Alkaline Phosphatase 149 ALT 210 AST 41 Total Bilirubin 1 Total Protein 4.8 Plasma Result Critical [facility] hospital MD LAB BLOOD ORDERABLES Nadia l Result * (ABNORMAL) CBC and differential (10/24/2025 7:23 AM EST) Pathologist [facility] Lymphocytes Absolute 0.8 / L Monocytes Absolute 0.9 / L Eosinophils Absolute 0.8 / L Basophils Absolute 0 / L Neutrophils Relative 78 46 - 78 % Lymphocytes Relative 6.4(A) 18 - 52 % Monocytes Relative 7.3 3 - 10 % Eosinophils Relative 6.8(A) 0 - 6 % Basophils Relative 0.2 0 - 3 % Neutrophils Absolute 9.1 / L Blood Historical Provider LAB BLOOD ORDERABLES Nadia l Result * (ABNORMAL) CBC and differential (10/24/2025 7:23 AM EST) Hemoglobin 9.6(A) 13.5 - 17.5 g/dL Hematocrit 27.6(A) 41 - 53 % RDW 15.4(A) 11.5 - 14.5 % MCH 32.7 26.0 - 34.0 pg MCHC 34.8 30 - 37 g/dL MCV 93.9 82.0 - 108.0 fL Platelets 47 K/ L RBC 2.94(A) 4.50 - 5.90 10^6/ L WBC 11.7 10^3/mL Blood Historical Provider LAB BLOOD ORDERABLES Nadia l Result documented in this encounter Visit Diagnoses Not on filedocumented in this encounter Additional Health Concerns Assessment Noted Time PHQ-9 Depression Total Score: 8 09/10/20 11:09 AM EDT documented as of this encounter Care Teams Filter Tank Tender Relationship Specialty Start Date End Date System, Provider Not In PCP - General 09/10/25 10/24/25 Dr. Chris Medel MD [address] [address] [place] [address] PCP - General Primary Care 10/25/25 documented as of this encounter
--- OUTSIDE RECORDS SUMMARY | 2025-10-29 07:50 | XMS_ITS | Encounter Summary ---
Author Organization [facility] Address [address] [place] [address] Care Team Providers Care Orthotic Technician Name Role Phone Unknown, Attending Provider [...] release of HIV test results or diagnoses. [id number] Health Encounter Details Date Type Department Care Team (Late st Contact Info) Description 09/05/2025 Abstract [facility] Liver Transplant at [address] [address] Chapito Alcantar, SILVIO Alcoholic cirrhosis of liver [...] disease documented in this encounter Care Teams Orthotic Technician Relationship Specialty Start Date End Date Unknown, Attending Provider PCP - General 08/29/2508/16 documented as of this encounter
--- OUTSIDE RECORDS SUMMARY | 2025-10-29 07:50 | XMS_ITS | Encounter Summary ---
Author Organization [facility] Address [address] [place] [address] Care Team Providers Care Radial Drill Press Operator For Plastic Name Role Phone Unknown, Attending Provider Primary [...] release of HIV test results or diagnoses. [id number] Health Encounter Details Date Type Department Care Team (Late st Contact Info) Description 09/13/2024 Orders Only EXTERNAL PROV RESULTS [address] [place] [address] System, Provider Not In Social History Tobacco [...] on filedocumented in this encounter Care Teams Radial Drill Press Operator For Plastic Relationship Specialty Start Date End Date Unknown, Attending Provider PCP - General 08/29/2508/16 System, Provider Not In PCP - General 09/10/25 10/24/25 Dr. Chris Medel MD [address] [place] [address] PCP - General Primary Care 10/25/25 documented as of this encounter
--- OUTSIDE RECORDS SUMMARY | 2025-10-29 07:50 | XMS_ITS | Encounter Summary ---
Author Organization [facility] Address [address] [place] [address] Care Team Providers Care Business Integration Manager Name Role Phone Unknown, Attending Provider [...] release of HIV test results or diagnoses. [id number] Health Encounter Details Date Type Department Care Team (Late st Contact Info) Description 09/05/2025 Telephone [facility] Liver Transplant at [address] [address] Chapito Alcantar RN Social History Tobacco Use [...] on filedocumented in this encounter Care Teams Business Integration Manager Relationship Specialty Start Date End Date Unknown, Attending Provider PCP - General 08/29/2508/16 documented as of this encounter
--- OUTSIDE RECORDS SUMMARY | 2025-10-29 07:50 | XMS_ITS | Encounter Summary ---
Author Organization [facility] Address [address] [place] [address] Care Team Providers Care Accounts Receivable Bookkeeper Name Role Phone System, Provider Not In [...] release of HIV test results or diagnoses. [id number] Health Encounter Details Date Type Department Care Team (Late st Contact Info) Description 09/19/2025 Telephone [facility] Liver Transplant at [address] [address] Chapito Alcantar RN Social History Tobacco Use [...] an OSH with a transfer pending to [facility]. Updated family that no bed is currently [...] as of this encounter Care Teams Accounts Receivable Bookkeeper Relationship Specialty Start Date End Date System, Provider Not In PCP - General 09/10/25 10/24/25 documented as of this encounter
--- OUTSIDE RECORDS SUMMARY | 2025-10-29 07:50 | XMS_ITS | Encounter Summary ---
Author Organization [facility] Address [address] [place] [address] Care Team Providers Care Blacktop Paver Operator Name Role Phone Unknown, Attending Provider [...] release of HIV test results or diagnoses. [id number] Reason for Referral * Imaging/Cardiovascular Scan (Routine) - New Request Specialty Diagnoses / Procedures Referred By Contac t Referred To Contact Radiology Procedures CT Abdomen and or Pelvis Outside Exam System, Provider Not In [address] [address] Referral ID Status Reason Start Date Expiration Date V isits Requested Visits Authorized [id number] New Request 09/08/2025 03/07/2026 1 1 Encounter Details Date Type Department Care Team (Late st Contact Info) Description 03/14/2025 Orders Only EXTERNAL PROV RESULTS [address] [place] [address] System, Provider Not In Social History Tobacco [...] on filedocumented in this encounter Care Teams Blacktop Paver Operator Relationship Specialty Start Date End Date Unknown, Attending Provider PCP - General 08/29/2508/16 System, Provider Not In PCP - General 09/10/25 10/24/25 Dr. Chris Medel MD [address] [place] [address] PCP - General Primary Care 10/25/25 documented as of this encounter
--- OUTSIDE RECORDS SUMMARY | 2025-10-29 07:50 | XMS_ITS | Encounter Summary ---
Author Organization [facility] Address [address] [place] [address] Care Team Providers Care Fuel Retrofitting Technician Name Role Phone System, Provider Not [...] release of HIV test results or diagnoses. [id number] Health Encounter Details Date Type Department Care Team (Late st Contact Info) Description 09/11/2025 Telephone [facility] Liver Transplant at [address] [address] Chapito Alcantar RN Social History Tobacco Use [...] documented as of this encounter Care Teams Fuel Retrofitting Technician Relationship Specialty Start Date End Date System, Provider Not In PCP - General 09/10/25 10/24/25 documented as of this encounter
--- OUTSIDE RECORDS SUMMARY | 2025-10-29 07:50 | XMS_ITS | Encounter Summary ---
Author Organization [facility] Address [address] [place] [address] Care Team Providers Care Second Butler Name Role Phone System, Provider Not In [...] release of HIV test results or diagnoses. [id number] Health Encounter Details Date Type Department Care Team (Late st Contact Info) Description 09/17/2025 Telephone [facility] I[facility] at [facility] [address] [place] [address] Navi Sims MD [address] [facility] [address] [place] [phone] Social History Tobacco Use Types Packs/Day [...] documented as of this encounter Care Teams Second Butler Relationship Specialty Start Date End Date System, Provider Not In PCP - General 09/10/25 10/24/25 documented as of this encounter
--- OUTSIDE RECORDS SUMMARY | 2025-10-29 07:50 | XMS_ITS | Encounter Summary ---
Author Organization [facility] Address [address] [place] [address] Care Team Providers Care Government Contracts Manager Name Role Phone Ruma Hernández MARKETING REGIONAL CONSULTANT Unavailable [phone] Chris Medel MD Primary Care Provider [phone] Encounter Details Date Type Department Care Team (Late st Contact Info) Description 07/19/2025 Results Follow-Up [facility] [address] [place] [phone] Meaghan Le, RN [facility] LIVER [id number] [address] [place] [address] Social History Tobacco Use Types Packs/Day Years [...] [facility] or congregation services? More than 4 times per year 02/19/2025 Do you belong to any clubs o r organizations such as yarsanism groups, unions, [employer] or athletic groups, or school groups? Yes [...] [facility] - Occupational Stress Questionnaire [...] drink first t luisa in the morning (EYE-PETS SALESPERSON) to steady your nerves or to get rid of a hangover? 0 06/14/2025 CAGE Questionnaire Score 0 025 Utilities Answer Date Recorded In the past 12 months has th e [employer], gas, oil, or water [employer] threatened to shut off services in your [...] E [facility], [address] [place] [address] Suhail Brock MD [address] [facility] [address] [place] [address] documented as of this encounter Visit Diagnoses [...] documented as of this encounter Care Teams Government Contracts Manager Relationship Specialty [place] [address] PCP - General 03/14/25 Ruma Hernández APRN [address] [facility] [address] [place] [address] Referring Physician Gastroenterology 07/30/23 documented as of this encounter
--- OUTSIDE RECORDS SUMMARY | 2025-10-29 07:50 | XMS_ITS | Encounter Summary ---
Author Organization [facility] Address [address] [place] [address] Care Team Providers Care Dictaphone Transcriber Name Role Phone Unknown, Attending Provider Primary [...] release of HIV test results or diagnoses. [id number] Health Encounter Details Date Type Department Care Team (Late st Contact Info) Description 06/13/2025 Orders Only EXTERNAL PROV RESULTS [address] [place] [address] System, Provider Not In Social History Tobacco [...] on filedocumented in this encounter Care Teams Dictaphone Transcriber Relationship Specialty Start Date End Date Unknown, Attending Provider PCP - General 08/29/2508/16 System, Provider Not In PCP - General 09/10/25 10/24/25 Dr. Chris Medel MD [address] [place] [address] PCP - General Primary Care 10/25/25 documented as of this encounter
--- OUTSIDE RECORDS SUMMARY | 2025-10-29 07:50 | XMS_ITS | Encounter Summary ---
Author Organization [facility] Address [address] [place] [address] Care Team Providers Care Product Marketing Specialist Name Role Phone System, Provider Not In [...] release of HIV test results or diagnoses. [id number] Health Encounter Details Date Type Department Care Team (Late st Contact Info) Description 09/10/2025 Chart Note [facility] Liver Transplant at [address] [address] Chapito Alcantar RN Alcoholic cirrhosis of liver [...] Alcantar RN - 09/10/2025 9:11 AM EDT [place] tab updated documented in this encounter Plan [...] QT: 464 ms QTc: 478 ms P [place]: 27 degrees R [place]: 58 degrees T [place]: 22 degrees Diagnosis Line: NORMAL SINUS RHYTHM ^ NORMAL ECG ^ No previous ECGs available ^ Confirmed by MD TIP, [facility] ([id number]) on 09/10/2025 3:28:36 PM [...] as of this encounter Care Teams Product Marketing Specialist Relationship Specialty Start Date End Date System, Provider Not In PCP - General 09/10/25 10/24/25 documented as of this encounter
--- OUTSIDE RECORDS SUMMARY | 2025-10-29 07:50 | XMS_ITS | Encounter Summary ---
Author Organization [facility] Address [address] [place] [address] Care Team Providers Care Coping Machine Operator Name Role Phone Dr. Chris Medel [...] release of HIV test results or diagnoses. [id number] Health Encounter Details Date Type Department Care Team (Late st Contact Info) Description 10/25/2025 Telephone [facility] Liver Transplant at [address] [place] [address] Pita Pike MA Social History Tobacco Use Types Packs/Day [...] Progress Notes * Pita Pike MA - 10/25/2025 11:46 AM EST [facility] called to say that they would not be able to start care on pt until 11/01 I checked with Kelsie GALLEGOS and she said that they need to see pt sooner. C said that they would make it work to see pt sooner and that they would do pts intake either tomorrow or Sat. Kelsie GALLEGOS ok'd for pt to have his labs collected Wednesday beofre his clinic appt and then relayed to [facility] that they would have to still pt on 11/01 for labs and incisional check. documented in this encounter Plan of Treatment Not on file documented as of this encounter Visit Diagnoses Not on filedocumented in this encounter Additional Health Concerns Assessment Noted Time PHQ-9 Depression Total Score: 8 09/10/20 25 11:09 AM EDT documented as of this encounter Care Teams Coping Machine Operator Relationship Specialty Start Date End Date Dr. Chris Medel MD [address] [place] [address] PCP - General Primary Care 10/25/25 documented as of this encounter
--- OUTSIDE RECORDS SUMMARY | 2025-10-29 07:50 | XMS_ITS | Encounter Summary ---
Author Organization [facility] Address [address] [place] [address] Care Team Providers Care Commercial Airline Pilot Name Role Phone Unknown, Attending Provider Primary [...] release of HIV test results or diagnoses. [id number] Health Encounter Details Date Type Department Care Team (Late st Contact Info) Description 09/05/2025 Telephone [facility] Liver Transplant at [address] [address] Cori Dover MA Social History Tobacco Use [...] request the following images be sent to [facility] Pacs: Must send fax request. Request [...] on filedocumented in this encounter Care Teams Commercial Airline Pilot Relationship Specialty Start Date End Date Unknown, Attending Provider PCP - General 08/29/2508/16 documented as of this encounter
--- OUTSIDE RECORDS SUMMARY | 2025-10-29 07:50 | XMS_ITS | Encounter Summary ---
Author Organization [facility] Address [address] [place] [address] Care Team Providers Care Nursing Coordinator Name Role Phone System, Provider Not [...] release of HIV test results or diagnoses. [id number] Health Encounter Details Date Type Department Care Team (Late st Contact Info) Description 09/13/2025 Chart Note [facility] Liver Transplant at [address] [address] Chapito Alcantar RN Multi-disciplinary Hepatobiliary Case Conference [...] documented as of this encounter Care Teams Nursing Coordinator Relationship Specialty Start Date End Date System, Provider Not In PCP - General 09/10/25 10/24/25 documented as of this encounter
--- OUTSIDE RECORDS SUMMARY | 2025-10-29 07:50 | XMS_ITS | Encounter Summary ---
Author Organization [facility] Address [address] [place] [address] Care Team Providers Care Lehr Attendant Name Role Phone Dr. Chris Medel MD [...] release of HIV test results or diagnoses. [id number] Health Encounter Details Date Type Department Care Team (Late st Contact Info) Description 10/25/2025 Orders Only [facility] Liver Transplant at [address] [address] Felice Nugent III, MD [address] [place] [address] Social History Tobacco Use Types Packs/Day [...] the past 12 months has th e [employer], gas, oil, or water company threatened to [...] ANTIBODY-DETAILED REPORT Routine 10/25/2025 11:31 AM EST documented in this encounter Results * [facility] - HLA Antibody-Detailed Report (10/25/2025 11:31 AM EST) 10/25/2025 11:3 1 AM EST us Felice Nugent III, MD LAB BLOOD ORDERABLE S Final Result [facility] [address] [place] [address] documented in this encounter Visit Diagnoses Not on filedocumented in this encounter Additional Health Concerns Assessment Noted Time PHQ-9 Depression Total Score: 8 09/10/20 11:09 AM EDT documented as of this encounter Care Teams Lehr Attendant Relationship Specialty Start Date End Date Dr. Chris Medel MD [address] [place] [address] PCP - General Primary Care 10/25/25 documented as of this encounter
--- OUTSIDE RECORDS SUMMARY | 2025-10-29 07:50 | XMS_ITS | Encounter Summary ---
Author Organization [facility] Address [address] [place] [address] Care Team Providers Care Police Commissioner Name Role Phone System, Provider Not In [...] release of HIV test results or diagnoses. [id number] Health Encounter Details Date Type Department Care Team (Late st Contact Info) Description 09/10/2025 Nutrition [facility] Kidney Transplant at [address] [address] Social History Tobacco Use [...] 2.1 (L) 09/10/2025 No results found for: [id number] PMH: Past Medical History: Diagnosis Date Epididymitis [...] Dietitian - Solid Organ Transplant Contact via [employer] Chat [1] Allergies Allergen Reactions Lisinopril Other (See Comments) documented in this encounter Plan of Treatment Not on file documented as of this encounter Visit Diagnoses Not on filedocumented in this encounter Additional Health Concerns Assessment Noted Time PHQ-9 Depression Total Score: 8 09/10/20 11:09 AM EDT documented as of this encounter Care Teams Police Commissioner Relationship Specialty Start Date End Date System, Provider Not In PCP - General 09/10/25 10/24/25 documented as of this encounter
--- OUTSIDE RECORDS SUMMARY | 2025-10-29 07:50 | XMS_ITS | Encounter Summary ---
Author Organization Healthcare Address [address] [place] [address] Care Team Providers Care Transcriber Name Role Phone Ruma Hernández RESTAURANT GENERAL MANAGER Unavailable [phone] Chris Medel MD Primary Care Provider [phone] Encounter Details Date Type Department Care Team [...] you attend [facility] or sabianism services? More than 4 [...] and heating? Not hard at all 06/15/2025 [facility] [place] of Occupat ional Health - Occupational Stress [...] first t luisa in the morning (EYE-CONSTRUCTION WORKER) to steady your nerves or to [...] E [facility], [address] [place] [address] Suhail Brock MD [address] [facility] [address] [place] [address] documented as of this encounter [...] documented as of this encounter Care Teams Transcriber Relationship Specialty [place] [address] PCP - General 03/14/25 Ruma Hernández APRN 1780 [facility] [address] [place] [address] Referring Physician Gastroenterology 07/30/23 documented as of this encounter
--- OUTSIDE RECORDS SUMMARY | 2025-10-29 07:50 | XMS_ITS | Encounter Summary ---
Author Organization [facility] Address [address] [place] [address] Care Team Providers Care Cement Loader Name Role Phone System, Provider Not In [...] release of HIV test results or diagnoses. [id number] Health Encounter Details Date Type Department Care Team (Late st Contact Info) Description 10/24/2025 Telephone [facility] Liver Transplant at [address] [address] Linn Andres MA Social History Tobacco Use Types Packs/Day [...] as of this encounter Progress Notes * Linn Andres MA - 10/24/2025 8:23 AM EST Gisela from [facility] lab called to report critical lab value for Pt. Platelets 47 Drawn on 10/24/25 Results will be faxed to our office and entered once received. documented in this encounter Plan of Treatment Not on file documented as of this encounter Visit Diagnoses Not on filedocumented in this encounter Additional Health Concerns Assessment Noted Time PHQ-9 Depression Total Score: 8 09/10/20 11:09 AM EDT documented as of this encounter Care Teams Cement Loader Relationship Specialty Start Date End Date System, Provider Not In PCP - General 09/10/25 10/24/25 documented as of this encounter
--- OUTSIDE RECORDS SUMMARY | 2025-10-29 07:50 | XMS_ITS | Encounter Summary ---
Author Organization Healthcare Address [address] [place] [address] Care Team Providers Care Machine Installer Name Role Phone Ruma Hernández DRAGSAW OPERATOR Unavailable [phone] Chris Medel MD Primary Care Provider [phone] Encounter Details Date Type Department Care Team (Late st Contact Info) Description 08/31/2025 Results Follow-Up [facility] Trans[facility] Center [address] [place] [address] Meaghan Le, RN [facility] LIVER [id number] [address] [place] [address] Social History Tobacco Use Types Packs/Day Years [...] do you attend [facility] or bahai services? More than 4 times per year 02/19/2025 Do you belong to any clubs o r organizations such as anglican groups, unions, [employer] or athletic groups, or school groups? Yes [...] hard at all 06/15/2025 [facility] - Occupational Stress Questionnaire Answer [...] drink first t luisa in the morning (EYE-WIRELESS CONSULTANT) to steady your nerves or to get rid of a hangover? 0 06/14/2025 CAGE Questionnaire Score 0 025 Utilities Answer Date Recorded In the past 12 months has th e [employer], gas, oil, or water [employer] threatened to shut off services in your [...] [facility], [address] [place] [address] Suhail Brock MD [address] [place] [address] documented as of this encounter Visit Diagnoses [...] as of this encounter Care Teams Machine Installer Relationship Specialty [place] [address] PCP - General 03/14/25 Ruma Hernández APRN [address] [address] Referring Physician Gastroenterology 07/30/23 documented as of this encounter
--- OUTSIDE RECORDS SUMMARY | 2025-10-29 07:50 | XMS_ITS | Encounter Summary ---
Author Organization Healthcare Address [address] [place] [address] Care Team Providers Care Drafter (Cad) Electrical Name Role Phone Ruma Hernández ASSOCIATE Unavailable [phone] Chris Medel MD Primary Care Provider [phone] Reason for Referral * Imaging (Routine) - Closed Specialty Diagnoses / Procedures Referred By Gianna reyes Referred To Contact Radiology Diagnoses Pre-liver transplant, listed Procedures MR Abdomen w and wo IV Contrast Portia Maguire MD [address] [facility] [address] [place] [address] Phone: tel: fax: Referral ID Status Reason Start Date Expiration Date Visits Re quested Visits Authorized [id number] Closed 09/05/2025 03/07/2027 1 1 Encounter Details Date Type Department Care Team (Late st Contact Info) Description 09/05/[address] [facility] Transplant Center [address] [facility] [address] [place] [address] Meaghan Le, RN HOSPITAL LIVER [id number] [address] [place] [address] Pre-liver transplant, listed (Primary Dx) Social History [...] week 02/19/2025 How often do you attend [facility] or mandaeism services? More than 4 [...] drink first t luisa in the morning (EYE-FLY WINDER) to steady your nerves or to [...] E [facility], [address] [place] [address] Suhail Brock MD [address] [place] [address] documented as of this encounter [...] are consistent with and integrated into the [employer] Association for the Study of Liver Diseases [...] using the following sequences: coronal single shot [id number] fast spin echo, axial T2 weighted sequences [...] are consistent with and integrated into the Micronesian Associationfor the Study of Liver Diseases (AASLD) [...] documented as of this encounter Care Teams Drafter (Cad) Electrical Relationship Specialty [place] [address] PCP - General 03/14/25 Ruma Hernández APRN [address] [place] [address] Referring Physician Gastroenterology 07/30/23 documented as of this encounter
--- OUTSIDE RECORDS SUMMARY | 2025-10-29 07:51 | XMS_ITS | Encounter Summary ---
Author Organization [facility] Address [address] [place] [address] Care Team Providers Care Convention Services Manager Name Role Phone Dr. Chris Medel MD [...] release of HIV test results or diagnoses. [id number] Health Encounter Details Date Type Department Care Team (Late st Contact Info) Description 10/25/2025 Telephone [facility] Liver Transplant at [address] [address] Giovanna June RN Social History Tobacco Use Types Packs/Day [...] documented as of this encounter Care Teams Convention Services Manager Relationship Specialty Start Date End Date Dr. Chris Medel MD 809 [facility] [place] [address] PCP - General Primary Care 10/25/25 documented as of this encounter
--- OUTSIDE RECORDS SUMMARY | 2025-10-29 07:51 | XMS_ITS | Encounter Summary ---
Author Organization [facility] Address [address] [place] [address] Care Team Providers Care Airport Maintenance Laborer Name Role Phone System, Provider Not [...] release of HIV test results or diagnoses. [id number] Reason for Visit * Reason Comments Prior Authorization Encounter Details Date Type Department Care Team (Late st Contact Info) Description 09/18/2025 Pharmacy Services [facility] [address] [place] [address] Delaney Bahena RXT Social History Tobacco Use [...] as of this encounter Care Teams Airport Maintenance Laborer Relationship Specialty Start Date End Date System, Provider Not In PCP - General 09/10/25 10/24/25 documented as of this encounter
--- OUTSIDE RECORDS SUMMARY | 2025-10-29 07:51 | XMS_ITS | Encounter Summary ---
Author Organization Healthcare Address [address] [place] [address] Care Team Providers Care Transfer Controller Name Role Phone Urban Brantley DO Primary Care Provider [phone] Ruma Hernández SUPERVISOR MELT HOUSE Unavailable [phone] Chris Medel MD Primary Care Provider [phone] Encounter Details Date Type Department Care Team (Late Contact Info) Description 03/22/2023 Orders Only External Location [address] [place] [address] Provider, External Social History Tobacco Use Types [...] [address] [facility], [address] [place] [address] Suhail Brock MD [address] [place] [address] documented as of this encounter [...] documented as of this encounter Care Teams Transfer Controller Relationship Specialty Start Date End Date Urban Brantley DO [address] [place] [address] PCP - General 07/30/23 03/13/25 [place] [address] PCP - General 03/14/25 Ruma Hernández APRN [address] [address] Referring Physician Gastroenterology 07/30/23 documented as of this encounter
--- OUTSIDE RECORDS SUMMARY | 2025-10-29 07:51 | XMS_ITS | Encounter Summary ---
Author Organization Healthcare Address [address] [place] [address] Care Team Providers Care Furnace Attendant Name Role Phone Ruma Hernández SPECIMEN TRANSPORTER Unavailable [phone] Chris Medel MD Primary Care Provider [phone] Encounter Details Date Type Department Care Team (Late st Contact Info) Description 08/29/2025 Orders Only [facility] [address] [place] [address] Provider, [place] [address] [place] [id number] Social History Tobacco Use Types Packs/Day Years [...] week 02/19/2025 How often do you attend [facility] or pentecostalism services? More than 4 times per year 02/19/2025 Do you belong to any clubs o r organizations such as yarsani groups, unions, [employer] or athletic groups, or school groups? Yes [...] and heating? Not hard at all 06/15/2025 [facility] - Occupational Stress Questionnaire Answer [...] drink first t luisa in the morning (EYE-CAREER SERVICES MANAGER) to steady your nerves or to get rid of a hangover? 0 06/14/2025 CAGE Questionnaire Score 0 025 Utilities Answer Date Recorded In the past 12 months has th e [employer], gas, oil, or water [employer] threatened to shut off services in your [...] [facility], [address] [place] [address] Suhail Brock MD [address] [facility] [address] [place] [address] documented as of this encounter Procedures Procedure Name Priority Date/Time Associated Diagnosis Comments COMPLETE METABOLIC PROFILE (CMP) Routine 08/29/2025 12:13 PM EDT PROTHROMBIN TIME(PT) / INR Routine 08/29/2025 11:11 AM EDT CBC WITH AUTO DIFFERENTIAL Routine 08/29/2025 11:11 AM EDT documented in this encounter Results * COMPLETE METABOLIC PROFILE (CMP) (08/29/2025 12:13 PM EDT) us Historical Provider LAB BLOOD ORDERABLES Final R esult * Prothrombin Time/INR (08/29/2025 11:11 AM EDT) Blood Venous blood specimen / Unknown [facility] Provider LAB BLOOD ORDERABLES Final R esult * CBC and Differential (08/29/2025 11:11 AM EDT) Blood Venous blood specimen / Unknown [facility] Provider LAB BLOOD ORDERABLES Final [...] as of this encounter Care Teams Furnace Attendant Relationship Specialty [place] [address] PCP - General 03/14/25 Ruma Hernández APRN [address] [place] [address] Referring Physician Gastroenterology 07/30/23 documented as of this encounter
--- OUTSIDE RECORDS SUMMARY | 2025-10-29 07:51 | XMS_ITS | Encounter Summary ---
Author Organization [facility] Address [address] [place] [address] Care Team Providers Care Filter Machine Operator Name Role Phone System, Provider [...] release of HIV test results or diagnoses. [id number] Health Encounter Details Date Type Department Care Team (Late st Contact Info) Description 09/11/2025 Chart Note [facility] Kidney Transplant at [address] [address] Ailin Wells Faxed Clinical for Listing/Txp Auth [...] Auth Organ: liver Listed Date: TBD Ins: [place] [employer] Wire Twisting Machine Operator: pending documented in this encounter Plan of Treatment Not on file documented as of this encounter Visit Diagnoses Not on filedocumented in this encounter Additional Health Concerns Assessment Noted Time PHQ-9 Depression Total Score: 8 09/10/20 25 11:09 AM EDT documented as of this encounter Care Teams Filter Machine Operator Relationship Specialty Start Date End Date System, Provider Not In PCP - General 09/10/25 10/24/25 documented as of this encounter
--- OUTSIDE RECORDS SUMMARY | 2025-10-29 07:51 | XMS_ITS | Encounter Summary ---
Author Organization Healthcare Address [address] [place] [address] Care Team Providers Care Technical Support Director Name Role Phone Ruma Hernández PREPARER Unavailable [phone] Chris Medel MD Primary Care Provider [phone] Encounter Details Date Type Department Care Team [...] do you attend [facility] or denominational services? More than 4 [...] Not hard at all 06/15/2025 [facility] of Occupat ional Health - Occupational Stress [...] drink first t luisa in the morning (EYE-MASH FILTER PRESS OPERATOR) to steady your nerves or to [...] [address] [facility], [address] [place] [address] Suhail Brock MD [address] [facility] [address] [place] [address] documented as of this [...] as of this encounter Care Teams Technical Support Director Relationship Specialty Start Date End Date Chris Medel MD [id number] PCP - General 03/14/25 Ruma Hernández APRN 1780 [facility] [address] [place] [address] Referring Physician Gastroenterology 07/30/23 documented as of this encounter
--- OUTSIDE RECORDS SUMMARY | 2025-10-29 07:51 | XMS_ITS | Encounter Summary ---
Author Organization [facility] Address [address] [place] [address] Care Team Providers Care Ski Patrol Name Role Phone System, Provider Not In [...] release of HIV test results or diagnoses. [id number] Health Encounter Details Date Type Department Care Team (Late st Contact Info) Description 09/11/2025 Telephone [facility] Liver Transplant at [address] [address] Chapito Alcantar, SILVIO Social History Tobacco Use [...] documented as of this encounter Care Teams Ski Patrol Relationship Specialty Start Date End Date System, Provider Not In PCP - General 09/10/25 10/24/25 documented as of this encounter
--- OUTSIDE RECORDS SUMMARY | 2025-10-29 07:51 | XMS_ITS | Encounter Summary ---
Author Organization Healthcare Address [address] [place] [address] Care Team Providers Care Patient Registration Specialist Name Role Phone Urban Brantley DO Primary Care Provider [phone] Ruma Hernández SUPERVISOR BLOOD Unavailable [phone] Chris Medel MD Primary Care Provider [phone] Encounter Details Date Type Department Care Team (Late Contact Info) Description 03/22/2023 Orders Only External Location [address] [place] [address] Provider, External Social History Tobacco Use Types [...] Urology [address] [facility], [address] [place] [address] Suhail Brock MD [address] [place] [address] documented as of this [...] as of this encounter Care Teams Patient Registration Specialist Relationship Specialty Start Date End Date Urban Brantley DO [address] [place] [address] PCP - General 07/30/23 03/13/25 [place] [address] PCP - General 03/14/25 Ruma Hernández APRN [address] [address] Referring Physician Gastroenterology 07/30/23 documented as of this encounter
--- OUTSIDE RECORDS SUMMARY | 2025-10-29 07:51 | XMS_ITS | Encounter Summary ---
Author Organization [facility] Address [address] [place] [address] Care Team Providers Care Panel Instrument Repairer Name Role Phone System, Provider Not In [...] release of HIV test results or diagnoses. [id number] Health Encounter Details Date Type Department Care Team (Late st Contact Info) Description 09/17/2025 Refill [facility] [address] [facility] [facility] [address] [place] [phone] Johnny Dubois RN Social History Tobacco Use [...] medication will need to be sent to [facility] pharmacy to be filled. Gave [facility] pharmacy phonenumber to call about getting medication mailed to their house possibly. documented in this encounter Plan of Treatment Not on file documented as of this encounter Visit Diagnoses Not on filedocumented in this encounter Additional Health Concerns Assessment Noted Time PHQ-9 Depression Total Score: 8 09/10/20 25 11:09 AM EDT documented as of this encounter Care Teams Panel Instrument Repairer Relationship Specialty Start Date End Date System, Provider Not In PCP - General 09/10/25 10/24/25 documented as of this encounter
--- OUTSIDE RECORDS SUMMARY | 2025-10-29 07:51 | XMS_ITS | Encounter Summary ---
Author Organization Healthcare Address [address] [place] [address] Care Team Providers Care Sand Mill Operator Core Sand Name Role Phone Urban Brantley DO Primary Care Provider [phone] Ruma Hernández CHOPPED STRAND OPERATOR Unavailable [phone] Chris Medel MD Primary Care Provider [phone] Encounter Details Date Type Department Care Team (Late st Contact Info) Description 12/30/2023 Orders Only External Location [address] [place] [address] Urban Stafford MD [address] [facility] [address] [place] [address] Social History Tobacco Use Types Packs/Day [...] [address] [facility], [address] [place] [address] Suhail Brock MD [address] [facility] [address] [place] [address] documented as of this encounter [...] documented as of this encounter Care Teams Sand Mill Operator Core Sand Relationship Specialty Start Date End Date Urban Brantley DO [address] [place] [address] PCP - General 07/30/23 03/13/25 [place] [address] PCP - General 03/14/25 Ruma Hernández APRN [facility] [address] [place] [address] Referring Physician Gastroenterology 07/30/23 documented as of this encounter
--- OUTSIDE RECORDS SUMMARY | 2025-10-29 07:51 | XMS_ITS | Encounter Summary ---
Author Organization [facility] Address [address] [place] [address] Care Team Providers Care Pot Annealer Name Role Phone System, Provider Not In [...] release of HIV test results or diagnoses. [id number] Health Encounter Details Date Type Department Care Team (Late st Contact Info) Description 09/10/2025 Social Work [facility] Liver Transplant at [address] [address] Michelle Ho MSW, LSW Social History Tobacco [...] PSYCHOSOCIAL ASSESSMENT Support Persons: Stacy Pop (): [phone] Daniel (brother) Gloria (daughter) Urban Patterson (neighbor) Lan (son): [phone] Past and Current Life / Social Situation: [...] at [place]. He does not have any quaker, ethnic, or personal objections to accepting blood [...] Score 8 GAD7 Scores: 09/10/2025 11:09 AM [id number] Score CLAUDIA-7 Total Score 1 Reviewed results [...] discussed the patient's psychosocial evaluation with the business continuity coordinator (Ezekiel Alcantar). The patient participated in [...] number for additional needs. MADHAV Arias, TONYA [phone] TRANSPLANT PSYCH NOTEWRITER: T[facility] Clinic Entry Point: 03 [facility] Social Work Assessment: 01 New Patient SW Evaluation Location: [facility] Patient Barriers & Recommendations: 01 No Barriers documented in this encounter Plan of Treatment Not on file documented as of this encounter Visit Diagnoses Not on filedocumented in this encounter Additional Health Concerns Assessment Noted Time PHQ-9 Depression Total Score: 8 09/10/20 11:09 AM EDT documented as of this encounter Care Teams Pot Annealer Relationship Specialty Start Date End Date System, Provider Not In PCP - General 09/10/25 10/24/25 documented as of this encounter
--- OUTSIDE RECORDS SUMMARY | 2025-10-29 07:51 | XMS_ITS | Encounter Summary ---
Author Organization Healthcare Address [address] [place] [address] Care Team Providers Care Assurance Senior Manager Insurance Name Role Phone Ruma Hernández REGIONAL ENGAGEMENT CONSULTANT Unavailable [phone] Chris Medel MD Primary Care Provider [phone] Encounter Details Date Type Department Care Team (Late st Contact Info) Description 09/12/2025 Results Follow-Up [facility] [address] [place] [id number] Meaghan Le, RN [facility] LIVER [id number] [address] [place] [address] Social History Tobacco Use Types Packs/Day Years [...] attend [facility] or gnosticist services? More than 4 times per year 02/19/2025 Do you belong to any clubs o r organizations such as sikhism groups, unions, [employer] or athletic groups, or school groups? [...] How often do you attend chur or gnosticist services? More than 4 times [...] at all 06/15/2025 [facility] - Occupational Stress Questionnaire Answer Date [...] drink first t luisa in the morning (EYE-EMISSION SPECIALIST) to steady your nerves or to get rid of a hangover? 0 06/14/2025 CAGE Questionnaire Score 0 025 Utilities Answer Date Recorded In the past 12 months has th e [employer], gas, oil, or water [employer] threatened to shut off services in your [...] [facility], [address] [place] [address] Suhail Brock MD [address] [facility] [address] [place] [address] documented as of this encounter [...] documented as of this encounter Care Teams Assurance Senior Manager Insurance Relationship Specialty [place] [address] PCP - General 03/14/25 Ruma Hernández APRN [address] [place], [place] [id number] Referring Physician Gastroenterology 07/30/23 documented as of this encounter
--- OUTSIDE RECORDS SUMMARY | 2025-10-29 07:51 | XMS_ITS ---
Author Organization [facility] Address [address] 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
--- OUTSIDE RECORDS SUMMARY | 2025-10-29 07:51 | XMS_ITS ---
Author Organization [facility] Address [address] [place] [address] Care Team Providers Care Launch Engineer Name Role Phone Dr. Chris Medel MD Primary Care Provider + Transplant Episode Liver Recipient [facility] ([place], [place]) - [facility] Organ Received: Liver Transplanted on 10/17/2025 Marked as Active Follow-up on 10/17/2025 Liver CoordinatorRuma Benjamin RN Phone: N/A Fax: N/A Email: N/A [place] Organ Diagnosis Organ Primary Contributory Liver Acute [...] N/A N/A Vani Drew MD Txp Surgeon [phone] N/A Portia Maguire Referring Physician [phone] N/A Michelle Ho MSW, TRACK MECHANIC Txp Sander And Polisher N/A N/A N/A Ruma Benjamin RN Txp Post Coordinator N/A N/A N/A Events Post-Transplant Pre-Transplant Admitted: 10/17/2025 Referred: 08/02/2025 Transplanted: 10/17/2025 Evaluation began: Discharged: 10/22/2025 Committee: 09/11/2025 Center waitlisted: 5
--- OUTSIDE RECORDS SUMMARY | 2025-10-29 07:51 | XMS_ITS | Encounter Summary ---
Author Organization Healthcare Address [address] [place] [address] Care Team Providers Care Wire Chief Name Role Phone Urban Brantley DO Primary Care Provider [phone] Ruma Hernández HEALTH SERVICES MANAGER Unavailable [phone] Chris Medel MD Primary Care Provider [phone] Encounter Details Date Type Department Care Team (Late Contact Info) Description 05/09/2023 Orders Only External Location [address] [place] [address] Provider, External Social History Tobacco Use Types [...] [facility], [address] [place] [address] Suhail Brock MD [address] [place] [address] documented as of this encounter [...] documented as of this encounter Care Teams Wire Chief Relationship Specialty Start Date End Date Urban Brantley DO [address] [place] [address] PCP - General 07/30/23 03/13/25 [place] [address] PCP - General 03/14/25 Ruma Hernández APRN [facility] [address] [place] [address] Referring Physician Gastroenterology 07/30/23 documented as of this encounter
--- OUTSIDE RECORDS SUMMARY | 2025-10-29 07:51 | XMS_ITS | Encounter Summary ---
Author Organization Healthcare Address [address] [place] [address] Care Team Providers Care Contracts Advisor Name Role Phone Ruma Hernández MECHANIC WELDER Unavailable [phone] Chris Medel MD Primary Care Provider [phone] Encounter Details Date Type Department Care Team (Late st Contact Info) Description 06/29/2025 Results Follow-Up [facility] [address] [place] [address] Meaghan Le, RN [facility] LIVER [id number] [address] [place] [address] Social History Tobacco Use Types Packs/Day Years [...] week 02/19/2025 How often do you attend [facility] or restorationism services? More than 4 times per year 02/19/2025 Do you belong to any clubs o r organizations such as jew groups, unions, [employer] or athletic groups, or school groups? Yes [...] all 06/15/2025 [facility] - Occupational Stress Questionnaire [...] drink first t luisa in the morning (EYE-LIVESTOCK COUNTER) to steady your nerves or to get rid of a hangover? 0 06/14/2025 CAGE Questionnaire Score 0 025 Utilities Answer Date Recorded In the past 12 months has th [employer], gas, oil, or water [employer] threatened to shut off services in [...] [facility], [address] [place] [address] Suhail Brock MD [address] [facility] [address] [place] [address] documented as of this encounter Visit Diagnoses [...] documented as of this encounter Care Teams Contracts Advisor Relationship Specialty [place] [address] PCP - General 03/14/25 Ruma Hernández APRN [facility] [address] [place] [address] Referring Physician Gastroenterology 07/30/23 documented as of this encounter"
[2025-10-29 08:56] LABS: Hematocrit 28.9 % (42.0-52.0); Hemoglobin 10.1 g/dL (14.1-18.0); Immature Granulocytes % 2.5 %; Mean Corpuscular HGB Conc 34.9 g/dL (31.8-35.4); Mean Corpuscular Hemoglobin 35.8 pg (27.0-31.2); Mean Corpuscular Volume 102.5 fl (80-94); Nucleated Red Blood Cells % 0 %; Platelet Count 145 K/mm3 (142-424); Red Blood Count 2.82 M/mm3 (4.60-6.20); Red Cell Distribution Width-SD 58.8 fL; White Blood Count 10.3 K/mm3 (4.8-10.8)
[2025-10-29 09:15] LABS: Alanine Aminotransferase 138 U/L (12-78); Albumin Level 2.8 g/dl (3.5-5.0); Alkaline Phosphatase 319 U/L (38-126); Anion Gap 9.9 mEq/L (5-15); Aspartate Amino Transferase 55 U/L (17-59); Bilirubin,Direct 0.7 mg/dl (0.0-0.4); Bilirubin,Indirect 0.7 mg/dL (0.0-0.9); Bilirubin,Total 1.4 mg/dl (0.2-1.3); Bilirubin,Unconjugated 0.7 mg/dL (0.0-1.1); Blood Urea Nitrogen 13 mg/dl (9-20); Calcium 7.6 mg/dl (8.4-10.2); Carbon Dioxide 29 mmol/L (22.0-30.0); Chloride 102 mmol/L (98-107); Creatinine,Serum 0.90 mg/dl (0.66-1.25); Estimated Glomerular Filt Rate 85 ml/min (>60); GFR (African American) 103 ML/MIN (>60); Glucose 107 mg/dl (74-100); Phosphorous 3.7 mg/dl (2.5-4.5); Potassium 3.9 mmoL/L (3.5-5.1); Sodium 137 mmol/L (136-145); Total Protein,Serum 5.5 g/dl (6.3-8.2)
[2025-11-01 03:48] LABS: Tacrolimus (FK506), Blood 7.8 ng/mL (5.0-20.0)
== END 2025-10-29 23:59 | disposition home or self-care (01) ==
LOC: LAB 07:43
PROVIDERS: PCP Family Medicine; Visit Provider Surgery
DX: D84.9 Immunodeficiency, unspecified (principal); Z94.4 Liver transplant status
CPT/HCPCS: 36415; 80069; 80076; 80197; 85025

== ENCOUNTER 2025-11-01 06:58 | Outpatient (CLI) | payer BC, SELFPAY ==
--- OUTSIDE RECORDS SUMMARY | 2023-08-27 07:34 | XMS_ITS | Encounter Summary ---
[facility] [address] [place] [address] Care Team Providers Care Doweler Name Role Phone Karon Urban Jc DO Primary Care Provider +1 -[phone] Encounter Details Date Type Department Care Team (Late st Contact Info) Description 08/27/2023 8:34 AM EDT Hospital Encounter [facility] PULMONARY & CRITICAL CARE MEDICINE [address] [place] [phone] Social History Tobacco Use Types Packs/Day [...] on filedocumented in this encounter Care Teams Doweler Relationship Specialty Start Date End Date Urban Brantley DO [address] [place] [address] [place] [address] PCP - General Internal Medicine 03/22/23 documented as of this encounter
--- OUTSIDE RECORDS SUMMARY | 2025-09-08 19:31 | XMS_ITS | Encounter Summary ---
Author Organization [facility] Address [address] [place] [address] Care Team Providers Care Pony Trimmer Name Role Phone Unknown, Attending Provider Primary [...] release of HIV test results or diagnoses. [id number] Reason for Referral * Imaging/Cardiovascular Scan (Routine) - New Request Specialty Diagnoses / Procedures Referred By Contac t Referred To Contact Radiology Procedures CT Abdomen and or Pelvis Outside Exam System, Provider Not In [address] [address] Referral ID Status Reason Start Date Expiration Date V isits Requested Visits Authorized [id number] New Request 09/08/2025 03/07/2026 1 1 Reason for Visit * Imaging/Cardiovascular Scan (Routine) - New Request Specialty Diagnoses / Procedures Referred By Contac t Referred To Contact Radiology Procedures CT Abdomen and or Pelvis Outside Exam System, Provider Not In [address] [address] Referral ID Status Reason Start Date Expiration Date V isits Requested Visits Authorized [id number] New Request 09/08/2025 03/07/2026 1 1 Encounter Details Date Type Department Care Team (Latest Contact Info) Description 09/08/2025 8:31 PM EDT - 09/08/2025 8:33 PM EDT Hospital Encounter [facility] Radiology [address] [place] [address] System, Provider Not In Discharge Disposition: Home [...] on filedocumented in this encounter Care Teams Pony Trimmer Relationship Specialty Start Date End Date Unknown, Attending Provider PCP - General 08/29/2508/16 documented as of this encounter
--- OUTSIDE RECORDS SUMMARY | 2025-09-08 19:31 | XMS_ITS | Encounter Summary ---
Author Organization [facility] Address [address] [place] [address] Care Team Providers Care Supervisor Title Name Role Phone Unknown, Attending Provider Primary [...] release of HIV test results or diagnoses. [id number] Health Encounter Details Date Type Department Care Team (Latest Contact Info) Description 09/08/2025 8:31 PM EDT - 09/08/2025 8:33 PM EDT Hospital Encounter [facility] Radiology [address] [place] [address] System, Provider Not In Discharge Disposition: Home [...] filedocumented in this encounter Care Teams Supervisor Title Relationship Specialty Start Date End Date Unknown, Attending Provider PCP - General 08/29/2508/16 documented as of this encounter
--- OUTSIDE RECORDS SUMMARY | 2025-09-08 19:34 | XMS_ITS | Encounter Summary ---
Author Organization [facility] Address [address] [place] [address] Care Team Providers Care Correctional Counselor/Case Manager Name Role Phone Unknown, Attending Provider [...] release of HIV test results or diagnoses. [id number] Health Encounter Details Date Type Department Care Team (Latest Contact Info) Description 09/08/2025 8:34 PM EDT - 09/08/2025 11:59 PM EDT Hospital Encounter [facility] Radiology [address] [place] [address] System, Provider Not In Discharge Disposition: Home [...] on filedocumented in this encounter Care Teams Correctional Counselor/Case Manager Relationship Specialty Start Date End Date Unknown, Attending Provider PCP - General 08/29/2508/16 documented as of this encounter
--- OUTSIDE RECORDS SUMMARY | 2025-09-08 19:34 | XMS_ITS | Encounter Summary ---
Author Organization [facility] Address [address] [place] [address] Care Team Providers Care Science Consultant Name Role Phone Unknown, Attending Provider Primary [...] release of HIV test results or diagnoses. [id number] Reason for Referral * Imaging/Cardiovascular Scan (Routine) - New Request Specialty Diagnoses / Procedures Referred By Contac t Referred To Contact Radiology Procedures CT Abdomen and or Pelvis Outside Exam System, Provider Not In [address] [address] Referral ID Status Reason Start Date Expiration Date V isits Requested Visits Authorized [id number] New Request 09/08/2025 03/07/2026 1 1 Reason for Visit * Imaging/Cardiovascular Scan (Routine) - New Request Specialty Diagnoses / Procedures Referred By Contac t Referred To Contact Radiology Procedures CT Abdomen and or Pelvis Outside Exam System, Provider Not In [address] [address] Referral ID Status Reason Start Date Expiration Date V isits Requested Visits Authorized [id number] New Request 09/08/2025 03/07/2026 1 1 Encounter Details Date Type Department Care Team (Latest Contact Info) Description 09/08/2025 8:34 PM EDT - 09/08/2025 11:59 PM EDT Hospital Encounter [facility] Radiology [address] [place] [address] System, Provider Not In Discharge Disposition: Home [...] on filedocumented in this encounter Care Teams Science Consultant Relationship Specialty Start Date End Date Unknown, Attending Provider PCP - General 08/29/2508/16 documented as of this encounter
--- OUTSIDE RECORDS SUMMARY | 2025-09-10 09:03 | XMS_ITS | Encounter Summary ---
Author Organization [facility] Address [address] [place] [address] Care Team Providers Care General Office Associate Name Role Phone System, Provider Not In Primary Care Provider Un available Source Comments This information has been disclosed [...] release of HIV test results or diagnoses. [id number] Reason for Referral * Imaging/Cardiovascular Scan (Routine) - Closed Specialty Diagnoses / Procedures Referred By Gianna reyes Referred To Contact Radiology Diagnoses Pre-transplant evaluation for chronic liver disease Procedures CT Chest WO contrast [facility]plant at [address] [address] Phone: tel: fax: Referral ID Status Reason Start Date Expiration Date Visits Re quested Visits Authorized [id number] Closed 08/13/2025 02/09/2026 1 1 Reason for Visit * Auth/Cert (Routine) Specialty Diagnoses / Procedures Referred By Gianna reyes Referred To Contact Radiology [facility] [address] [place] [address] Phone: tel: Referral ID Status Reason Start Date Expiration Date Visits Re quested Visits Authorized [id number] 1 1 Encounter Details Date Type Department Care Team (Latest Contact Info) Description 09/10/2025 10:03 AM EDT - 09/10/2025 11:59 PM EDT Hospital Encounter [facility] CT [address] [place] [id number] Nigel Reaves MD [address] [place] [address] Pre-transplant evaluation for chronic liver disease Discharge Disposition: Home or Self Care WITHOUT Home Care Services Social History Tobacco Use Types Packs/Day Years Used Date Smoking Tobacco: Never Smokeless Tobacco: Former Alcohol Use Standard Drinks/Week Comments Not Currently 0 (1 standard drink = 0.6 oz pur e alcohol) Sober since February 2023 PHQ-2 Answer Date Recorded PHQ-2 Total Score 0 09/10/2025 Sex and Gender Information Value Date Recorded [...] Name Priority Date/Time Associated Diagnosis Comments CT CHEST WO CONTRAST Routine 09/10/2025 10:11 AM EDT Pre-transplant evaluation for chronic liver disease documented in this encounter Results * CT Chest WO contrast (09/10/2025 10:11 AM EDT) Anatomical Region Laterality Modality Chest Computed Tomogra phy 09/10/2025 10:0 6 AM EDT Impressions 09/12/2025 9:07 AM EDT IMPRESSION: 1. Small calcification within a right apical subsegmental bronchus with downstream tree-in-bud nodularity may represent a small broncholiths with distal post obstructive changes. 2. 3 mm pulmonary nodule probably benign/without clinical significance. Approved by Bj Gleason MD on 09/10/2025 11:58 AM EDT I have personally reviewed the images and I agree with this report. Report Verified by: Hayes Meadows MD at 09/12/2025 9:07 AM EDT Narrative 09/12/2025 9:07 AM EDT EXAM: CT CHEST WO CONTRAST INDICATION: OLT Eval; Pre-transplant evaluation for chronic liver disease COMPARISON: None. TECHNIQUE: Multidetector CT imaging was obtained through the chest in the supine position without intravenous contrast. Additional axial MIP images were reconstructed. CAD software was utilized. FINDINGS: MEDICAL DEVICES: None. AIRWAYS & LUNGS: The central airways are patent. There are subpleural reticular opacities within the anterior lateral right middle lobe. Mild right greater than left biapical scarring. There are calcification/broncholiths within a subsegmental right apical bronchiectasis within the right upper lobe with downstream tree-in-bud nodularity within the paramedian right upper lobe apex. 3 mm pulmonary nodule in the left upper lobe. No additional pulmonary nodule is identified. Thin-walled cyst in the right lower lobe measures 9 mm. PLEURA: No pleural effusions or pneumothorax. LOWER NECK: Unremarkable. HEART: The heart is normal in size. VASCULAR STRUCTURES: Aorta and main pulmonary artery are normal in caliber. Minimal scattered atherosclerosis. MEDIASTINUM AND DILLON: No pathologically enlarged lymph nodes. Sequela of healed granulomatous disease. CHEST WALL AND AXILLA: Unremarkable. UPPER ABDOMEN: Cirrhotic liver morphology with small volume perihepatic ascites. Mild esophageal thickening likely minute cysts. Punctate calcified granuloma in the liver. OSSEOUS STRUCTURES: No suspicious osseous lesion or acute osseous abnormality. Procedure Note Hayes Meadows MD - 09/12/2025 EXAM: CT CHEST WO CONTRAST INDICATION: OLT Eval; Pre-transplant evaluation for chronic liverdisease COMPARISON: None. TECHNIQUE: Multidetector CT imaging was obtained through the chest in thesupine position without intravenous contrast. Additional axial MIP imageswere reconstructed. CAD software was utilized. FINDINGS: MEDICAL DEVICES: None. AIRWAYS & LUNGS: The central airways are patent. There are subpleuralreticular opacities within the anterior lateral right middle lobe. Mildright greater than left biapical scarring. There arecalcification/broncholiths within a subsegmental right apicalbronchiectasis within the right upper lobe with downstream [id number] within the paramedian right upper lobe apex. 3 mm pulmonarynodule in the left upper lobe. No additional pulmonary nodule isidentified. Thin-walled cyst in the right lower lobe measures 9 mm. PLEURA: No pleural effusions or pneumothorax. LOWER NECK: Unremarkable. HEART: The heart is normal in size. VASCULAR STRUCTURES: Aorta and main pulmonary artery are normal incaliber. Minimal scattered atherosclerosis. MEDIASTINUM AND DILLON: No pathologically enlarged lymph nodes. Sequela ofhealed granulomatous disease. CHEST WALL AND AXILLA: Unremarkable. UPPER ABDOMEN: Cirrhotic liver morphology with small volume perihepaticascites. Mild esophageal thickening likely minute cysts. Punctatecalcified granuloma in the liver. OSSEOUS STRUCTURES: No suspicious osseous lesion or acute osseousabnormality. IMPRESSION: 1. Small calcification within a right apical subsegmental bronchus withdownstream tree-in-bud nodularity may represent a small broncholiths withdistal post obstructive changes. 2. 3 mm pulmonary nodule probably benign/without clinical significance. Approved by Bj Gleason MD on 09/10/2025 11:58 AM EDT I have personally reviewed the images and I agree with this report. Report Verified by: Hayes Meadows MD at 09/12/2025 9:07 AM EDT Nigel Reaves MD IMG CT ORDERABLES Final Result documented in this encounter Visit Diagnoses Diagnosis Pre-transplant evaluation for chronic liver disease documented in this encounter Additional Health Concerns Assessment Noted Time PHQ-9 Depression Total Score: 8 09/10/20 11:09 AM EDT documented as of this encounter Care Teams General Office Associate Relationship Specialty Start Date End Date System, Provider Not In PCP - General 09/10/25 10/24/25 documented as of this encounter
--- OUTSIDE RECORDS SUMMARY | 2025-09-10 11:00 | XMS_ITS | Encounter Summary ---
Author Organization [facility] Address [address] [place] [address] Care Team Providers Care Cia Agent Name Role Phone System, Provider Not In [...] release of HIV test results or diagnoses. 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: Stefan Gonzalez MD Date of [...] Resource Strain: Low Risk (06/15/2025) Received from [facility] Overall Financial Resource Strain (CARDIA) How hard is it for you to pay for the very basics like food, housing, medical care, and heating?: Not hard at all Food Insecurity: No Food Insecurity (06/15/2025) Received from [facility] Hunger Vital Sign Worried About Running Out of Food in the Last Year: Never true Ran Out of Food in the Last Year: Never true Transportation Needs: No Transportation Needs (06/15/2025) Received from [facility] PRAPARE - Transportation In the past 12 months, has lack of transportation kept you from medical appointments or from getting medications?: No In the past 12 months, has lack of transportation kept you from meetings, work, or from getting things needed for daily living?: No Physical Activity: Inactive (06/15/2025) Received from [facility] Exercise Vital Sign Days of Exercise per Week: 0 days Minutes of Exercise per Session: 0 min Stress: No Stress Concern Present (06/15/2025) Received from [facility] [place] of Occupational Health - Occupational Stress Questionnaire Do you feel stress - tense, restless, nervous, or anxious, or unable to sleep at night because yourmind is troubled all the time - these days?: Only a little Social Connections: Socially Integrated (06/15/2025) Received from [facility] Social Connection and Isolation Panel [NHANES] Frequency of Communication with Friends and Family: More than three times a week Frequency of Social Gatherings with Friends and Family: More than three times a week Attends Mandaen Services: More than 4 times per year Active Member of Clubs or Organizations: Yes Attends Club or Organization Meetings: Not on file Marital Status: Intimate Partner Violence: Not At Risk (06/15/2025) Received from [facility] Humiliation, Afraid, Rape, and Kick questionnaire Fear of Current or Ex-Partner: No Emotionally Abused: No Physically Abused: No Sexually Abused: No Housing Stability: Low Risk (06/15/2025) Received from [facility] Housing Stability Vital Sign Unable to Pay [...] test performed by another physician/other qualified health animal daycare provider (not separately reported) Risk of Complications [...] documented as of this encounter Care Teams Cia Agent Relationship Specialty Start Date End Date System, Provider Not In PCP - General 09/10/25 10/24/25 documented as of this encounter
--- OUTSIDE RECORDS SUMMARY | 2025-09-10 12:00 | XMS_ITS | Encounter Summary ---
Author Organization [facility] Address [address] [place] [id number] Care Team Providers Care Digital Campaign Manager Name Role Phone System, Provider Not In [...] release of HIV test results or diagnoses. [id number] Reason for Visit * Reason Comments Liver Transplant Evaluation Encounter Details Date Type Department Care Team (Late st Contact Info) Description 09/10/2025 1:00 PM EDT Office Visit [facility] Liver Transplant at [address] [id number] Buddy Zimmerman MD [address] [place] [id number] Pre-transplant evaluation for chronic liver disease (Primary Dx); Alcoholic cirrhosis of liver with ascites (CMS-HCC) Social History Tobacco Use Types Packs/Day Years Used Date Smoking Tobacco: Never Smokeless Tobacco: Former Tobacco Cessation:Counseling Given: No Alcohol Use Standard Drinks/Week Comments Not Currently [...] Time Taken Comments Blood Pressure 127/68 09/10/2025 11:53 AM EDT Pulse 62 09/10/2025 11:53 AM EDT Temperature 36.6 C (97.9 F) 09/10/2025 11:53 AM EDT Respiratory Rate 16 09/10/2025 11:53 AM EDT Oxygen Saturation 100% 09/10/2025 11:53 AM EDT Inhaled Oxygen Concentration 100% 09/10/2025 1 1:53 AM EDT Weight 98.6 kg (217 lb 6.4 oz) 09/10/2025 11:53 AM EDT Height 167.6 cm (5' 6 ) 09/10/2025 11:53 AM EDT Body Mass Index 35.09 09/10/2025 11:53 AM EDT documented in this encounter Patient Instructions * Patient Instructions* Buddy Zimmerman MD - 09/10/2025 1:00 PM EDT Recommendations are as follows: MELD Labs to be updated Variceal Screening - continue carvedilol 3.125 mg twice daily for primary prophylaxis. Ascites - Would continue current dose of lasix mg and aldactone mg . Counseled and educated on 2000mg low sodium diet. HE - Continue Rifaximin 550 mg twice daily. HCC screening/surveillance - Would continue surveillance for HCC with AFP and ultrasound every 6 months Vaccinations - Immune to Hepatitis A and B. Sarcopenia/diet : Encouraged high protein diet (1.5 g/kg) and exercise Transplant Listing - Patient has completed workup. He has completed pre-transplant testing as detailed in HPI. He will see our anesthesia colleagues today and testing will be reviewed in weekly liver selection meeting later this week for official listing. Will get MELD labs today documented in this encounter Progress Notes * Buddy Zimmerman MD - 09/10/2025 1:00 PM EDT Hepatology Clinic Note Name: David Pop CSN: [id number] Chief Complaint: Liver Transplant Evaluation History of Present Illness: David Pop is a 65 y.o. 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 Of note patient is listed at and is seeking dual listing. MELD 20. In terms of liver disease, patient was diagnosed in 2022 based on cross sectional imaging which showed cirrhotic morphology and stigmata of portal hypertension including varices, recanalized umbilical vein and splenomegaly. Last drink 2022. He had ascites dating back to 2022 for which he has undergone intermittent paracentesis. Last paracentesis 06/22/2025 with 4L removed. Currently on lasix 40 mg and aldactone 150 mg daily. He is on carvedilol 3.125 mg BID. In terms of HE he is well controlled on xifaxan 550 mg two times daily. He also has jaundice present. Most recent cross sectional CT 02/2025 with Cirrhotic morphology of the liver with sequela of portalhypertension including borderline splenomegaly, portosystemic collaterals, portal colopathy and small abdominopelvic ascites. CT angio coronary with Recommendation: CAD-RADS 0: Reassurance. No further cardiac testing recommended prior to liver transplantation. Can consider retesting with CCTA in 3 years or greater. Echocardiogram EF 60-65% diastolic dysfunction grade II. RV normal. LA with moderate intrapulmonaryshunting present. ABG with pH 7.43, pO2 of 86. Colonoscopy 03/2023 with 8 polyps (multiple >10mm) repeat 3 years Upper endoscopy 03/2023 with small EV present Patient denies any family history of liver disease, liver cancer or autoimmune conditions. No new medications or herbal supplements. No fevers or chills, nausea or vomiting, blood in stool, dark stools, or abdominal pain. No dysphagia, odynophagia or weight loss. No other complaints at this time. The following portions of the patient's history were reviewed and updated as appropriate: allergies, current medications, past family history, past medical history, past social history, past surgicalhistory and problem list. Comprehensive review of systems performed. See full ROS in EMR. 12 point ROS was performed and negative except as noted above in the HPI. An extensive review of past records including prior office notes, labs, imaging, and pathology reports was performed from the Media tab, Care Everywhere and paper documents. Review of Systems Gen: no fatigue, no malaise, no fever Neuro: no headache, no focal weakness, no dysarthria HEENT: no oral ulcers, no red eye, no eye pain Pulm: no dyspnea, no wheezing CV: no chest pain, no palpitations, no lightheadedness GI: no abdominal pain, no constipation, no diarrhea, no blood in stool, no dysphagia Renal/: no dysuria, no hematuria, no frequency Skin: no rash, no jaundice Heme: no easy bruising, no petechiae, no ecchymosis Rheum: no joint pain, no joint swelling Past Medical History Past Medical History: Diagnosis Date Epididymitis Hemochromatosis Hypertension Kidney stone UTI (urinary tract infection) Past Surgical History Past Surgical History: Procedure Laterality Date HERNIA REPAIR Family History No family history on file. Social History Social History Tobacco Use Smoking status: Never Smokeless tobacco: Former Substance Use Topics Alcohol use: Not Currently Comment: Sober since February 2023 Medications Current Medications as of 09/10/2025 8:21 AM Outpatient Medications Quantity Refills Start End calcitRIOL (ROCALTROL) 0.25 MCG capsule -- -- 08/08/2025 -- ergocalciferol (ERGOCALCIFEROL) 1,250 mcg (50,000 unit) capsule -- -- 03/08/2025 -- furosemide (LASIX) 20 MG tablet -- -- 03/13/2024 03/14/2026 omeprazole (PRILOSEC) 20 MG capsule -- -- 03/14/2025 -- spironolactone (ALDACTONE) 50 MG tablet -- -- 03/13/2024 12/22/2025 XIFAXAN 550 mg Tab tablet -- -- 01/15/2025 -- Allergies Allergies[1] Vitals: Vitals: 09/10/25 1153 BP: 127/68 Pulse: 62 Resp: 16 Temp: 97.9 ??F (36.6 ??C) SpO2: 100% Physical Exam Gen: Well-developed, well nourished. No acute distress. Non-toxic appearing +Jaundice present HEENT: Mucous membranes pink/moist. No scleral icterus. Neck: Neck is supple. CV: Regular rate. Lungs: No respiratory distress. Abdomen: Soft, mild distension Extremities: No bilateral lower extremity edema. No clubbing or cyanosis present. Skin: No bruising or rash noted. No spider angiomata or palmar erythema. Neuro: Alert and oriented to person, place, and time. CN 2-12 grossly intact. No gross motor defecits. No asterixis Psych: Normal mood and affect. Normal speech and behavior. Assessment/Plan: David Pop is a 65 y.o. 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 Of note patient is listed at and is seeking dual listing. MELD 25. Recommendations are as follows: MELD Labs to be updated Variceal Screening - continue carvedilol 3.125 mg twice daily for primary prophylaxis. Ascites - Would continue current dose of lasix mg and aldactone mg . Counseled and educated on 2000mg low sodium diet. HE - Continue Rifaximin 550 mg twice daily. HCC screening/surveillance - Would continue surveillance for HCC with AFP and ultrasound every 6 months Vaccinations - Immune to Hepatitis A and B. Sarcopenia/diet : Encouraged high protein diet (1.5 g/kg) and exercise Transplant Listing - Patient has completed workup. He has completed pre-transplant testing as detailed in HPI. He will see our anesthesia colleagues today and testing will be reviewed in weekly liver selection meeting later this week for official listing. Will get MELD labs today Buddy Zimmerman MD [employer] [facility] Division of Gastroenterology and Hepatology [1] Allergies Allergen Reactions Lisinopril Other (See Comments) * Chapito Alcantar RN - 09/10/2025 1:00 PM EDT The patient and support persons participated in multi-disciplinary transplant education class and all questions were answered about the process. The patient and support persons met with various members of the of the liver transplant team who addressed their questions and concerns in our multidisciplinary clinic. We discussed the evaluation process, the selection criteria for liver transplant wait-listing, and the risks and benefits of liver transplant. * Chapito Alcantar RN - 09/10/2025 1:00 PM EDT A six minute walk was performed in clinic. The patient walked a total of 1270 feet. Baseline O2 sat: 95 % Lowest O2 sat: 94 % documented in this encounter Plan of Treatment Not on file documented as of this encounter Procedures Procedure Name Priority Date/Time Associated Diagnosis Comments ECG 12-LEAD (MUSE) Routine 09/10/2025 12 :14 PM EDT Alcoholic cirrhosis of liver with ascites (CMS-HCC) Pre-transplant evaluation for chronic liver disease documented in this encounter Results * (ABNORMAL) Lipid Profile (09/10/2025 5:03 PM EDT) Non-HDL Cholesterol, Calculated 109 0 - 129 mg/dL 09/10/2025 8:21 PM EDT [facility] Comment: Desirable: < 130 mg/dL Above Desirable: 130-159 mg/dL Borderline High: 160-189 mg/dL High: 190-219 mg/dL Very High: > 219 mg/dL Cholesterol, Total 135 0 - 200 mg/dL 09/10/2025 8:21 PM EDT [facility] Triglycerides 60 10 - 149 mg/dL 09/10/2025 8:21 PM EDT [facility] HDL 26(L) 60 - 92 mg/dL 09/10/2025 8:21 PM EDT [facility] Comment: LIPID PROFILE INTERPRETATION CHOLESTEROL,TOTAL(mg/dL) DESIRABLE: < 200 BORDERLINE HIGH RISK: 200 - 239 HIGH RISK(UNDESIRABLE): =/> 240 LDL CHOLESTEROL(mg/dL) OPTIMAL: < 100 NEAR HIGH OPTIMAL: 100 - 129 BORDERLINE HIGH RISK: 130 - 159 HIGH RISK: 160 - 189 VERY HIGH RISK: =/> 190 HDL CHOLESTEROL(mg/dL) HIGH RISK(UNDESIRABLE): < 40 BORDERLINE: 40 - 59 LOW RISK (DESIRABLE): => 60 TRIGLYCERIDES (mg/dL) NORMAL(DESIRABLE): < 150 BORDERLINE HIGH RISK: 150 - 199 HIGH RISK: 200 - 499 VERY HIGH RISK: =/> 500 Based on the guidlines of the National Cholesterol Education Program (NCEP). Assumes sample obtained after a 9- to 12- hour fast. LDL Cholesterol 97 mg/dL 8:21 PM EDT [facility] Plasma 09/10/2025 5:03 PM EDT 09/10/2025 5:52 PM EDT Narrative [facility]ALTH [facility] - 09/10/2025 8:21 PM EDT Must the patient be fasting for this test?->No LDL cholesterol calculated using the Friedewald equation. us Buddy Zimmerman MD LAB BLOOD ORDERABLES Final Resul t Performing Organization Address City/[facility] Co de Phone Number [facility] [address] [facility]. [address] * ABO/Rh (09/10/2025 5:03 PM EDT) ABO Grouping A 09/10/2025 7:26 PM EDT [facility] Rh Type Positive 09/10/2025 7:26 PM EDT [facility] Blood 09/10/2025 5:03 PM EDT 09/10/2025 6:49 PM EDT us Buddy Zimmerman MD BLOOD BANK TEST ORDERABLES Final Result Performing Organization Address [facility] de Phone Number [facility] [address] [facility]. [address] * AFP tumor marker (09/10/2025 5:03 PM EDT) AFP-Tumor Marker 2.0 0.0 - 9.0 ng/mL 09/10/2025 8:52 PM EDT [facility] Serum 09/10/2025 5:03 PM EDT 09/10/2025 6:42 PM EDT Narrative [facility] - 09/10/2025 8:52 PM EDT The testing method for AFP is a chemiluminescent immunoassay manufactured by [employer] Concentrations of AFP obtained by different assay methods or kits may vary and cannot be used interchangeably. AFP results cannot be interpreted as absolute evidence of the presence or absence of malignant disease. us Buddy Zimmerman MD LAB BLOOD ORDERABLES Final Resul t [facility] [address] [facility]. [address] * Hemoglobin A1c (09/10/2025 5:03 PM EDT) Pathologist [facility] Hemoglobin A1C 4.0 4.0 - 5.6 % 09/10/2025 11:22 PM EDT [facility] Comment: Hemoglobin A1c Interpretation Guidelines: Normal: <5.7% Prediabetes: 5.7-6.4% Diabetes: >6.4% Diagnosis requires two independent tests unless clinical diagnosis is clear. Some clinical conditions, particularly anemias and hemoglobinopathies, may interfere with the diagnostic accuracy of hemoglobin A1c. The recommended goal for diabetic glycemic control (Hemoglobin A1c <7.0%) should be individualized based on duration of diabetes, age/life expectancy, comorbid conditions, known CVD or advanced microvascular complications, hypoglycemia unawareness, and other individual patient considerations. Whole Blood 09/10/2025 5:03 PM EDT 09/10/2025 6:33 PM EDT us Buddy Zimmerman MD LAB BLOOD ORDERABLES Final Resul t Performing Organization Address [facility] Co de Phone Number [facility] [address] [facility]. [address] * TSH (Thyroid Stimulating Hormone) (09/10/2025 5:03 PM EDT) Pathologist [facility] TSH 2.85 0.45 - 4.12 uIU/mL 09/11/2025 12:13 AM EDT [facility] Serum 09/10/2025 5:03 PM EDT 09/10/2025 6:42 PM EDT us Buddy Zimmerman MD LAB BLOOD ORDERABLES Final Resul t Performing Organization Address [facility]/ZIP Co de Phone Number [facility] [address] [facility]. [address] * (ABNORMAL) Protime-INR (09/10/2025 5:03 PM EDT) Pathologist [facility] Protime 24.2(H) 12.1 - 15.1 seconds 09/10/2025 7:00 PM EDT [facility] INR 2.0(H) 0.9 - 1.1 09/10/2025 7:00 PM EDT [facility] Comment: RECOMMENDED THERAPEUTIC RANGES USING INR : Stable oral anticoagulant therapy: 2.0 - 3.0 Mechanical prosthetic heart valve: 2.5 - 3.5 Recurrent acute myocardial infarction: 2.5 - 3.5 Plasma 09/10/2025 5:03 PM EDT 09/10/2025 6:42 PM EDT us Buddy Zimmerman MD LAB BLOOD ORDERABLES Final Resul t [facility] [address] * (ABNORMAL) Hepatic Function Panel (09/10/2025 5:03 PM EDT) Total Bilirubin 5.9(H) 0.0 - 1.5 mg/dL 09/10/2025 8:21 PM EDT [facility] Bilirubin, Direct 1.62(H) 0.00 - 0.40 mg/dL 09/10/2025 8:21 PM EDT [facility] AST 40(H) 13 - 39 U/L 09/10/2025 8:21 PM EDT [facility] ALT 29 7 - 52 U/L 09/10/2025 8:21 PM EDT [facility] Alkaline Phosphatase 136(H) 36 - 125 U/L 09/10/2025 8:21 PM EDT [facility] Total Protein 6.2(L) 6.4 - 8.9 g/dL 09/10/2025 8:21 PM EDT [facility] Albumin 2.1(L) 3.5 - 5.7 g/dL 09/10/2025 8:21 PM EDT [facility] Bilirubin, Indirect 4.28(H) 0.00 - 1.10 mg/dL 09/10/2025 8:21 PM EDT [facility] Plasma 09/10/2025 5:03 PM EDT 09/10/2025 5:52 PM EDT us Buddy Zimmerman MD LAB BLOOD ORDERABLES Final Resul t [facility] [address] [place] [address], [facility] * (ABNORMAL) Basic metabolic panel (09/10/2025 5:03 PM EDT) Sodium 142 133 - 146 mmol/L 09/10/2025 8:21 PM EDT [facility] Potassium 3.8 3.5 - 5.3 mmol/L 09/10/2025 8:21 PM EDT [facility] Chloride 110 98 - 110 mmol/L 09/10/2025 8:21 PM EDT [facility] CO2 27 21 - 33 mmol/L 09/10/2025 8:21 PM EDT [facility] Comment:High lactate dehydro genase concentrations in patient samples may cause falsely increased bicarbonate results. If markedly elevated LDH is observed or suspected, please assess results in conjunction with patient`s clinical presentation. In cases of discrepant results, consider evaluating CO2 in with a blood gas order. Anion Gap 5 3 - 16 mmol/L 09/10/2025 8:21 PM EDT [facility] BUN 10 7 - 25 mg/dL 09/10/2025 8:21 PM EDT [facility] Creatinine 0.90 0.60 - 1.30 mg/dL 09/10/2025 8:21 PM EDT [facility] Glucose 79 70 - 100 mg/dL 09/10/2025 8:21 PM EDT [facility] Calcium 7.9(L) 8.6 - 10.3 mg/dL 09/10/2025 8:21 PM EDT [facility] Osmolality, Calculated 292 278 - 305 mOsm/kg 09/10/2025 8:21 PM EDT [facility] EGFR >90 09/10/2025 8:21 PM EDT [facility] Comment: As of 2022, the estimated GFR is calculated using the 2020 Chronic Kidney Disease Epidemiology Collaboration (CKD-EPI) equation. In line with the NKF-ASN Task Force Recommendations, this equation does not include a coefficient for race. A single eGFR value is calculated for each patient. The reference interval is >60 mL/min/1.73m2. eGFR values greater than 90 will be reported as >90mL/min/1.73m2. Reference: Sachin C, Kathy M, Rebecca DC, Josue ND, Dee Dee [place], Nazia [place], et al. A Unifying Approach for GFR Estimation: Recommendations of the NKF-ASN Task Force on Reassessing the inclusion of Race in Diagnosing Kidney Disease. Am J Kidney Dis. 2020. GFR is estimated using creatinine, age, and sex. Patient's values should be interpreted as a trend. Below 90 mL/min/1.73m2, the patient may have renal disease. For additional information: www.kidney.org Plasma 09/10/2025 5:03 PM EDT 09/10/2025 5:52 PM EDT us Buddy Zimmerman MD LAB BLOOD ORDERABLES Final Resul t [facility] [address] * (ABNORMAL) CBC (09/10/2025 5:03 PM EDT) WBC 4.2 3.8 - 10.8 10E3/uL 09/10/2025 6:57 PM EDT [facility] RBC 3.39(L) 4.20 - 5.80 10E6/uL 09/10/2025 6:57 PM EDT [facility] Hemoglobin 11.4(L) 13.2 - 17.1 g/dL 09/10/2025 6:57 PM EDT [facility] Hematocrit 33.9(L) 38.5 - 50.0 % 09/10/2025 6:57 PM EDT [facility] MCV 100.1(H) 80.0 - 100.0 fL 09/10/2025 6:57 PM EDT [facility] MCH 33.7(H) 27.0 - 33.0 pg 09/10/2025 6:57 PM EDT [facility] MCHC 33.7 32.0 - 36.0 g/dL 09/10/2025 6:57 PM EDT [facility] RDW 18.5(H) 11.0 - 15.0 % 09/10/2025 6:57 PM EDT [facility] Platelets 66(L) 140 - 400 10E3/uL 09/10/2025 6:57 PM EDT [facility] MPV 7.8 7.5 - 11.5 fL 09/10/2025 6:57 PM EDT [facility] Whole Blood 09/10/2025 5:03 PM EDT 09/10/2025 6:33 PM EDT us Buddy Zimmerman MD LAB BLOOD ORDERABLES Final Resul t [facility] [address] * ECG 12-Lead (MUSE) (09/10/2025 12:14 PM EDT) 09/10/2025 12:1 4 PM EDT Narrative MUSE - 09/10/2025 3:28 PM EDT Ventricular Rate: 64 BPM Atrial Rate: 64 BPM P-R Interval: 190 ms QRS Duration: 84 ms QT: 464 ms QTc: 478 ms P [place]: 27 degrees R [place]: 58 degrees T [place]: 22 degrees Diagnosis Line: NORMAL SINUS RHYTHM ^ NORMAL ECG ^ No previous ECGs available ^ Confirmed by MD TIP, [facility] ([id number]) on 09/10/2025 3:28:36 PM us Buddy Zimmerman MD ECG ORDERABLES Final Result MUSE documented in this encounter Visit Diagnoses Diagnosis Pre-transplant evaluation for chronic liver disease- Primary Alcoholic cirrhosis of liver with ascites (CMS-HCC) Alcoholic cirrhosis of liver with ascites (CMS-HCC) Pre-transplant evaluation for chronic liver disease documented in this encounter Additional Health Concerns Assessment Noted Time PHQ-9 Depression Total Score: 8 09/10/20 11:09 AM EDT documented as of this encounter Care Teams Digital Campaign Manager Relationship Specialty Start Date End Date System, Provider Not In PCP - General 09/10/25 10/24/25 documented as of this encounter
--- OUTSIDE RECORDS SUMMARY | 2025-09-10 12:30 | XMS_ITS | Encounter Summary ---
Author Organization [facility] Address [address] [place] [id number] Care Team Providers Care Machine Featheredger And Reducer Name Role Phone System, Provider Not In [...] release of HIV test results or diagnoses. [id number] Health Encounter Details Date Type Department Care Team (Late st Contact Info) Description 09/10/2025 1:30 PM EDT Office Visit [facility] Liver Transplant at [address] [address] [address] Troy MD [facility] [place] [address] Alcoholic cirrhosis of liver with [...] Resource Strain: Low Risk (06/15/2025) Received from [facility] Overall Financial Resource Strain (CARDIA) How hard is it for you to pay for the very basics like food, housing, medical care, and heating?: Not hard at all Food Insecurity: No Food Insecurity (06/15/2025) Received from [facility] Hunger Vital Sign Worried About Running Out of Food in the Last Year: Never true Ran Out of Food in the Last Year: Never true Transportation Needs: No Transportation Needs (06/15/2025) Received from [facility] PRAPARE - Transportation In the past 12 months, has lack of transportation kept you from medical appointments or from getting medications?: No In the past 12 months, has lack of transportation kept you from meetings, work, or from getting things needed for daily living?: No Physical Activity: Inactive (06/15/2025) Received from [facility] Exercise Vital Sign Days of Exercise per Week: 0 days Minutes of Exercise per Session: 0 min Stress: No Stress Concern Present (06/15/2025) Received from [facility] [place] of Occupational Health - Occupational Stress Questionnaire Do you feel stress - tense, restless, nervous, or anxious, or unable to sleep at night because yourmind is troubled all the time - these days?: Only a little Social Connections: Socially Integrated (06/15/2025) Received from [facility] Social Connection and Isolation Panel [NHANES] Frequency of Communication with Friends and Family: More than three times a week Frequency of Social Gatherings with Friends and Family: More than three times a week Attends Scientology Services: More than 4 times per year Active Member of Clubs or Organizations: Yes Attends Club or Organization Meetings: Not on file Marital Status: Intimate Partner Violence: Not At Risk (06/15/2025) Received from [facility] Humiliation, Afraid, Rape, and Kick questionnaire Fear of Current or Ex-Partner: No Emotionally Abused: No Physically Abused: No Sexually Abused: No Housing Stability: Low Risk (06/15/2025) Received from [facility] Housing Stability Vital Sign Unable to [...] further review Use and allocation of SCD, ROSE GRADING SUPERVISOR, DCD and LDLT allografts discussed in detail. [...] in a facility that is approved by [facility] as meeting institutional coverage criteria for [...] from surgery (5%). I also explained the [facility] risks of transplantation and immunosuppression including viral infection and cancer both solid organand lymphoma. --- Lane Troy MD Transplant Filter Pulp Washertravel agent Section of Transplantation [facility] [1] Allergies Allergen Reactions Lisinopril Other (See [...] documented as of this encounter Care Teams Machine Featheredger And Reducer Relationship Specialty Start Date End Date System, Provider Not In PCP - General 09/10/25 10/24/25 documented as of this encounter
--- OUTSIDE RECORDS SUMMARY | 2025-09-10 13:00 | XMS_ITS | Encounter Summary ---
Author Organization [facility] Address [address] [place] [address] Care Team Providers Care Mangle Operator Garments Name Role Phone System, Provider Not In [...] release of HIV test results or diagnoses. [id number] Reason for Visit * Reason Comments ID Consult Visit (Follow Up) Liver Transplant Pre-evaluation Encounter Details Date Type Department Care Team (Late st Contact Info) Description 09/10/2025 2:00 PM EDT Office Visit [facility] Liver Transplant at [address] [phone] Unknown, Attending Provider Navi Sims MD [address] [place] [phone] Pre-transplant evaluation for chronic liver disease [...] Disease Pre-Transplant Consultation Patient: David Pop CSN: [id number] Chief Complaint Pre-transplant evaluation, infectious History of Present Illness David Pop is a 65 y.o. 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 Childhood immunizations and illnesses: got all childhood vaccines, still has tonsils, no PE tubes. Unsure if had measles, mumps. Unsure if had VZV. Places of habitation and travel: Born in [place], no SW travel. 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 Lives with , 3 cats, does the cat litter box. No other pets. Hobbies: fish. Discussed hot tub avoidance. No known TB exposure, no homeless, no prison, no ivdu,no healthcare work. Current vaccinations: needs all of [...] Resource Strain: Low Risk (06/15/2025) Received from [facility] Overall Financial Resource Strain (CARDIA) How hard is it for you to pay for the very basics like food, housing, medical care, and heating?: Not hard at all Food Insecurity: No Food Insecurity (06/15/2025) Received from [facility] Hunger Vital Sign Worried About Running Out of Food in the Last Year: Never true Ran Out of Food in the Last Year: Never true Transportation Needs: No Transportation Needs (06/15/2025) Received from [facility] PRAPARE - Transportation In the past 12 months, has lack of transportation kept you from medical appointments or from getting medications?: No In the past 12 months, has lack of transportation kept you from meetings, work, or from getting things needed for daily living?: No Physical Activity: Inactive (06/15/2025) Received from [facility] Exercise Vital Sign Days of Exercise per Week: 0 days Minutes of Exercise per Session: 0 min Stress: No Stress Concern Present (06/15/2025) Received from [facility] [employer] [place] [employer] - Occupational Stress Questionnaire Do you feel stress - tense, restless, nervous, or anxious, or unable to sleep at night because yourmind is troubled all the time - these days?: Only a little Social Connections: Socially Integrated (06/15/2025) Received from [facility] Social Connection and Isolation Panel [NHANES] Frequency of Communication with Friends and Family: More than three times a week Frequency of Social Gatherings with Friends and Family: More than three times a week Attends Gnosticist Services: More than 4 times per year Active Member of Clubs or Organizations: Yes Attends Club or Organization Meetings: Not on file Marital Status: Intimate Partner Violence: Not At Risk (06/15/2025) Received from [facility] Humiliation, Afraid, Rape, and Kick questionnaire Fear of Current or Ex-Partner: No Emotionally Abused: No Physically Abused: No Sexually Abused: No Housing Stability: Low Risk (06/15/2025) Received from [facility] Housing Stability Vital Sign Unable [...] antibody, IgG (09/10/2025 5:03 PM EDT) Pathologist [facility] Varicella IgG Positive( A) Negative S/CO 09/10/2025 11:49 PM EDT [facility] Comment:Result indicates the presence [...] - 0.99 S/CO 09/10/2025 11:49 PM EDT [facility] Serum 09/10/2025 5:03 PM EDT 09/10/2025 10:26 PM EDT Navi Sims MD LAB BLOOD ORDERABLES Final Resu lt Performing Organization Address [facility] Co de Phone Number [facility] [address] * QuantiFERON TB2 Ag (09/10/2025 5:03 PM EDT) Pathologist [facility] QuantiFERON TB2 Ag Value 0.09 09/12/2025 1:19 PM EDT [facility] Plasma 09/10/2025 5:03 PM EDT 09/10/2025 6:29 PM EDT Navi Sims MD LAB BLOOD ORDERABLES Final Resu lt Performing Organization Address City/[facility]/ZIP Co de Phone Number [facility] [address] * QuantiFERON TB1 Ag (09/10/2025 5:03 PM EDT) QuantiFERON TB1 Ag Value 0.08 09/12/2025 1:19 PM EDT [facility] Plasma 09/10/2025 5:03 PM EDT 09/10/2025 6:29 PM EDT Navi Sims MD LAB BLOOD ORDERABLES Final Resu lt [facility] [address] [facility]. [address] * QuantiFERON Nil (09/10/2025 5:03 PM EDT) Pathologist [facility] QuantiFERON Nil 0.02 1:19 PM EDT [facility] Plasma 09/10/2025 5:03 PM EDT 09/10/2025 6:29 PM EDT Navi Sims MD LAB BLOOD ORDERABLES Final Resu lt Performing Organization Address City/[facility]/ZIP Co de Phone Number [facility] [address] [facility]. [address] * QuantiFERON Mitogen (09/10/2025 5:03 PM EDT) Pathologist [facility] QuantiFERON Interpretation Negative Negative 09/12/2025 1:19 PM EDT [facility] Comment:Negative result pilar cates M. tuberculosis infection is NOT likely. Negative results do not preclude tuberculosis infection (especially in immunosuppressed patients). Negative results have a TB antigen minus Nil value less than 0.35 IU/mL. In cases with high suspicion of disease, retesting or additional testing with medical evaluation may be useful. QuantiFERON Mitogen 8.77 09/12 1:19 PM EDT [facility] Plasma 09/10/2025 5:03 PM EDT 09/10/2025 6:29 PM EDT Narrative [facility] - 09/12/2025 1:19 PM [...] ORDERABLES Final Resu lt Performing Organization Address City/[facility]/ZIP Co de Phone Number [facility] [address] [facility]. [address] * (ABNORMAL) Strongyloides Ab (09/10/2025 5:03 PM EDT) Pathologist [facility] Strongyloides Ab Positive( A) Negative 09/17/2025 2:56 PM EST [facility] Serum 09/10/2025 5:03 PM EDT 09/17/2025 3:07 PM EST Narrative [facility] - 09/17/2025 3:07 PM EST PERFORMED AT: [address] [id number] HAND TURNER: Kevin Holguin MD PHONE: [phone] Navi Sims MD LAB BLOOD ORDERABLES Final Resu lt Performing Organization Address City/[facility] Co de Phone Number [facility] [address] [facility]. [address] * Toxoplasma gondii antibody, IgG (09/10/2025 5:03 PM EDT) Pathologist [facility] Toxoplasma Gondii IgG <3.0 0.0 - 7.1 IU/mL 09/12/2025 6:21 AM EDT [facility] Comment: Negative <7.2 Equivocal 7.2 - 8.7 Positive >8.7 Serum 09/10/2025 5:03 PM EDT 09/12/2025 7:06 AM EDT Narrative [facility] - 09/12/2025 7:06 AM EDT PERFORMED AT: [facility] [address] [id number] HAND TURNER: Mateo Miller, PhD PHONE: [phone] Nvai Sims MD LAB BLOOD ORDERABLES Final Resu lt [facility] [address]. [address] * Syphilis Screening (Trepia) (09/10/2025 5:03 PM EDT) Treponema Pallidum Negative Negative 09/10/2025 11:55 PM EDT [facility] Comment: No serological evidence of infection with Treponema pallidum (incubating or early primary syphilis cannot be excluded). Serum 09/10/2025 5:03 PM EDT 09/10/2025 10:26 PM EDT Navi Sims MD LAB BLOOD ORDERABLES Final Resu lt [facility] [address] [facility]. [address] * (ABNORMAL) MMR(IgG) Panel (Measles, Mumps, Rubella) (09/10/2025 5:03 PM EDT) Mumps IgG Positive 09/10/2025 11:51 PM EDT [facility] MUMPS IGG NUM >300.00(H) 0.0 - 8.9 U/mL 09/10/2025 11:51 PM EDT [facility] Rubella IgG Scr Positive 09/10/2025 11:51 PM EDT [facility] RUB NUM 30.20(H) 0.0 - 0.8 INDEX 09/10/2025 11:51 PM EDT [facility] Rubeola Ab, IgG Positive 09/10/2025 11:50 PM EDT [facility] RUB IGG NUM >300.00(H) 0.00 - 13.40 U/mL 09/10/2025 11:50 PM EDT [facility] Serum 09/10/2025 5:03 PM EDT 09/10/2025 10:26 PM EDT Narrative [facility] - 09/10/2025 11:51 PM EDT Presence [...] MD LAB BLOOD ORDERABLES Final Resu lt [facility] [address] [place] [address], [facility] documented in this encounter Visit Diagnoses [...] documented as of this encounter Care Teams Mangle Operator Garments Relationship Specialty Start Date End Date System, Provider Not In PCP - General 09/10/25 10/24/25 documented as of this encounter
--- OUTSIDE RECORDS SUMMARY | 2025-09-10 15:35 | XMS_ITS | Encounter Summary ---
Author Organization [facility] Address [address] [place] [id number] Care Team Providers Care Restaurant Managing Partner Name Role Phone System, Provider Not In [...] release of HIV test results or diagnoses. [id number] Reason for Visit * Auth/Cert (Routine) Specialty Diagnoses / Procedures Referred By Gianna reyes Referred To Contact Radiology [facility] [place] [address] [place] [address] Phone: tel: Referral ID Status Reason Start Date Expiration Date Visits Re quested Visits Authorized [id number] 1 1 Encounter Details Date Type Department Care Team (Late st Contact Info) Description 09/10/2025 4:35 PM EDT Specimen [facility] [address] [place] [id number] Buddy Zimmerman MD [address] [place] [address] Alcoholic cirrhosis of liver with [...] - 0.99 S/CO 09/10/2025 11:49 PM EDT [facility] Serum 09/10/2025 5:03 PM EDT 09/10/2025 10:26 PM EDT Navi Sims MD LAB BLOOD ORDERABLES Final Resu lt [facility] [address] [place] [address]. [address] * QuantiFERON TB2 Ag (09/10/2025 5:03 PM EDT) QuantiFERON TB2 Ag Value 0.09 09/12/2025 1:19 PM EDT [facility] Plasma 09/10/2025 5:03 PM EDT 09/10/2025 6:29 PM EDT Navi Sims MD LAB BLOOD ORDERABLES Final Resu lt [facility] [address] [facility]. [address] * QuantiFERON TB1 Ag (09/10/2025 5:03 PM EDT) QuantiFERON TB1 Ag Value 0.08 09/12/2025 1:19 PM EDT [facility] Plasma 09/10/2025 5:03 PM EDT 09/10/2025 6:29 PM EDT Navi Sims MD LAB BLOOD ORDERABLES Final Resu lt [facility] [address] [place] [address]. [address] * QuantiFERON Nil (09/10/2025 5:03 PM EDT) QuantiFERON Nil 0.02 1:19 PM EDT [facility] Plasma 09/10/2025 5:03 PM EDT 09/10/2025 6:29 PM EDT Navi Sims MD LAB BLOOD ORDERABLES Final Resu lt Performing Organization Address [facility]/ZIP Co de Phone Number [facility] [address] [facility]. [address] * QuantiFERON Mitogen (09/10/2025 5:03 PM EDT) Pathologist [facility] QuantiFERON Interpretation Negative Negative 09/12/2025 1:19 PM EDT [facility] Comment:Negative result pilar cates M. tuberculosis infection is NOT likely. Negative results do not preclude tuberculosis infection (especially in immunosuppressed patients). Negative results have a TB antigen minus Nil value less than 0.35 IU/mL. In cases with high suspicion of disease, retesting or additional testing with medical evaluation may be useful. QuantiFERON Mitogen 8.77 09/12 1:19 PM EDT [facility] Plasma 09/10/2025 5:03 PM EDT 09/10/2025 6:29 PM EDT Narrative [facility] - 09/12/2025 1:19 PM EDT The [...] MD LAB BLOOD ORDERABLES Final Resu lt [facility] [address] [facility] [address], [facility] * (ABNORMAL) Strongyloides Ab (09/10/2025 5:03 PM EDT) Pathologist [facility] Strongyloides Ab Positive( A) Negative 09/17/2025 2:56 PM EST [facility] Serum 09/10/2025 5:03 PM EDT 09/17/2025 3:07 PM EST Narrative [facility] - 09/17/2025 3:07 PM EST PERFORMED AT: [facility] [address] [id number] PRODUCT MERCHANDISER: Kevin Holguin MD PHONE: [phone] Navi Sims MD LAB BLOOD ORDERABLES Final Resu lt Performing Organization Address [facility] Co de Phone Number [facility] [address] [facility]. [address] * Toxoplasma gondii antibody, IgG (09/10/2025 5:03 PM EDT) Toxoplasma Gondii IgG <3.0 0.0 - 7.1 IU/mL 09/12/2025 6:21 AM EDT [facility] Comment: Negative <7.2 Equivocal 7.2 - 8.7 Positive >8.7 Serum 09/10/2025 5:03 PM EDT 09/12/2025 7:06 AM EDT Narrative [facility] - 09/12/2025 7:06 AM EDT PERFORMED AT: [facility] [address] [id number] PRODUCT MERCHANDISER: Mateo Miller, PhD PHONE: [phone] Navi Sims MD LAB BLOOD ORDERABLES Final Resu lt Performing Organization Address City/[facility]/ZIP Co de Phone Number [facility] [address] [facility]. [address] * Syphilis Screening (Trepia) (09/10/2025 5:03 PM EDT) Treponema Pallidum Negative Negative 09/10/2025 11:55 PM EDT [facility] Comment: No serological evidence of infection with Treponema pallidum (incubating or early primary syphilis cannot be excluded). Serum 09/10/2025 5:03 PM EDT 09/10/2025 10:26 PM EDT Navi Sims MD LAB BLOOD ORDERABLES Final Resu lt [facility] [address] [facility]. [address] * (ABNORMAL) MMR(IgG) Panel (Measles, Mumps, Rubella) (09/10/2025 5:03 PM EDT) Mumps IgG Positive 09/10/2025 11:51 PM EDT [facility] MUMPS IGG NUM >300.00(H) 0.0 - 8.9 U/mL 09/10/2025 11:51 PM EDT [facility] Rubella IgG Scr Positive 09/10/2025 11:51 PM EDT [facility] RUB NUM 30.20(H) 0.0 - 0.8 INDEX 09/10/2025 11:51 PM EDT [facility] Rubeola Ab, IgG Positive 09/10/2025 11:50 PM EDT [facility] RUB IGG NUM >300.00(H) 0.00 - 13.40 U/mL 09/10/2025 11:50 PM EDT [facility] Serum 09/10/2025 5:03 PM EDT 09/10/2025 10:26 PM EDT Narrative [facility] - 09/10/2025 11:51 PM EDT Presence [...] MD LAB BLOOD ORDERABLES Final Resu lt [facility] [address] [facility]. [address] * (ABNORMAL) Lipid Profile (09/10/2025 5:03 [...] - 149 mg/dL 09/10/2025 8:21 PM EDT [facility] HDL 26(L) 60 - 92 mg/dL 09/10/2025 8:21 PM EDT [facility] Comment: LIPID PROFILE INTERPRETATION CHOLESTEROL,TOTAL(mg/dL) DESIRABLE: [...] LDL Cholesterol 97 mg/dL 8:21 PM EDT [facility] Plasma 09/10/2025 5:03 PM EDT 09/10/2025 5:52 PM EDT Narrative [facility] - 09/10/2025 8:21 PM EDT Must the patient be fasting for this test?->No LDL cholesterol calculated using the Friedewald equation. us Buddy Zimmerman MD LAB BLOOD ORDERABLES Final Resul t [facility] [address] * ABO/Rh (09/10/2025 5:03 PM EDT) ABO Grouping A 09/10/2025 7:26 PM EDT [facility] Rh Type Positive 09/10/2025 7:26 PM EDT [facility] Blood 09/10/2025 5:03 PM EDT 09/10/2025 6:49 PM EDT Buddy Zimmerman MD BLOOD BANK TEST ORDERABLES Final Result [facility] [address] * AFP tumor marker (09/10/2025 5:03 PM EDT) Pathologist [facility] AFP-Tumor Marker 2.0 0.0 - 9.0 ng/mL 09/10/2025 8:52 PM EDT [facility] Serum 09/10/2025 5:03 PM EDT 09/10/2025 6:42 PM EDT Narrative [facility] - 09/10/2025 8:52 PM EDT The testing method for AFP is a chemiluminescent immunoassay manufactured by [employer] Concentrations of AFP obtained by different assay methods or kits may vary and cannot be used interchangeably. AFP results cannot be interpreted as absolute evidence of the presence or absence of malignant disease. Buddy Zimmerman MD LAB BLOOD ORDERABLES Final Resul t Performing Organization Address City/[facility] Co de Phone Number [facility] [address] * Hemoglobin A1c (09/10/2025 5:03 PM EDT) Pathologist [facility] Hemoglobin A1C 4.0 4.0 - 5.6 % 09/10/2025 11:22 PM EDT [facility] Comment: Hemoglobin A1c Interpretation Guidelines: Normal: [...] ORDERABLES Final Resul t Performing Organization Address City/[facility] Co de Phone Number [facility] [address] [facility]. [address] * TSH (Thyroid Stimulating Hormone) (09/10/2025 5:03 PM EDT) TSH 2.85 0.45 - 4.12 uIU/mL 09/11/2025 12:13 AM EDT [facility] Serum 09/10/2025 5:03 PM EDT 09/10/2025 6:42 PM EDT us Buddy Zimmerman MD LAB BLOOD ORDERABLES Final Resul t Performing Organization Address [facility] Co de Phone Number [facility] [address] [facility]. [address] * (ABNORMAL) Protime-INR (09/10/2025 5:03 PM EDT) Protime 24.2(H) 12.1 - 15.1 seconds 09/10/2025 7:00 PM EDT [facility] INR 2.0(H) 0.9 - 1.1 09/10/2025 7:00 PM EDT [facility] Comment: RECOMMENDED THERAPEUTIC RANGES USING INR : Stable oral anticoagulant therapy: 2.0 - 3.0 Mechanical prosthetic heart valve: 2.5 - 3.5 Recurrent acute myocardial infarction: 2.5 - 3.5 Plasma 09/10/2025 5:03 PM EDT 09/10/2025 6:42 PM EDT Result Neto Zimmerman MD LAB BLOOD ORDERABLES Final Resul t Performing Organization Address [facility] Co de Phone Number [facility] [address] [facility]. [address] * (ABNORMAL) Hepatic Function Panel (09/10/2025 5:03 PM EDT) Total Bilirubin 5.9(H) 0.0 - 1.5 mg/dL 09/10/2025 8:21 PM EDT [facility] Bilirubin, Direct 1.62(H) 0.00 - 0.40 mg/dL 09/10/2025 8:21 PM EDT [facility] AST 40(H) 13 - 39 U/L 09/10/2025 8:21 PM EDT [facility] ALT 29 7 - 52 U/L 09/10/2025 8:21 PM EDT [facility] Alkaline Phosphatase 136(H) 36 - 125 U/L 09/10/2025 8:21 PM EDT [facility] Total Protein 6.2(L) 6.4 - 8.9 g/dL 09/10/2025 8:21 PM EDT [facility] Albumin 2.1(L) 3.5 - 5.7 g/dL 09/10/2025 8:21 PM EDT [facility] Bilirubin, Indirect 4.28(H) 0.00 - 1.10 mg/dL 09/10/2025 8:21 PM EDT [facility] Plasma 09/10/2025 5:03 PM EDT 09/10/2025 5:52 PM EDT us Buddy Zimmerman MD LAB BLOOD ORDERABLES Final Resul t [facility] [address] * (ABNORMAL) Basic metabolic panel (09/10/2025 5:03 PM EDT) Sodium 142 133 - 146 mmol/L 09/10/2025 8:21 PM EDT [facility] Potassium 3.8 3.5 - 5.3 mmol/L 09/10/2025 8:21 PM EDT [facility] Chloride 110 98 - 110 mmol/L 09/10/2025 8:21 PM EDT [facility] CO2 27 21 - 33 mmol/L 09/10/2025 8:21 PM EDT [facility] Comment:High lactate dehydro genase concentrations in patient samples may cause falsely increased bicarbonate results. If markedly elevated LDH is observed or suspected, please assess results in conjunction with patient`s clinical presentation. In cases of discrepant results, consider evaluating CO2 in with a blood gas order. Anion Gap 5 3 - 16 mmol/L 09/10/2025 8:21 PM EDT [facility] BUN 10 7 - 25 mg/dL 09/10/2025 8:21 PM EDT [facility] Creatinine 0.90 0.60 - 1.30 mg/dL 09/10/2025 8:21 PM EDT [facility] Glucose 79 70 - 100 mg/dL 09/10/2025 8:21 PM EDT [facility] Calcium 7.9(L) 8.6 - 10.3 mg/dL 09/10/2025 8:21 PM EDT [facility] Osmolality, Calculated 292 278 - 305 mOsm/kg 09/10/2025 8:21 PM EDT [facility] EGFR >90 09/10/2025 8:21 PM EDT [facility] Comment: As of 2022, the estimated [...] MD LAB BLOOD ORDERABLES Final Resul t [facility] [address] * (ABNORMAL) CBC (09/10/2025 5:03 PM EDT) WBC 4.2 3.8 - 10.8 10E3/uL 09/10/2025 6:57 PM EDT [facility] RBC 3.39(L) 4.20 - 5.80 10E6/uL 09/10/2025 6:57 PM EDT [facility] Hemoglobin 11.4(L) 13.2 - 17.1 g/dL 09/10/2025 6:57 PM EDT [facility] Hematocrit 33.9(L) 38.5 - 50.0 % 09/10/2025 6:57 PM EDT [facility] MCV 100.1(H) 80.0 - 100.0 fL 09/10/2025 6:57 PM EDT [facility] MCH 33.7(H) 27.0 - 33.0 pg 09/10/2025 6:57 PM EDT [facility] MCHC 33.7 32.0 - 36.0 g/dL 09/10/2025 6:57 PM EDT [facility] RDW 18.5(H) 11.0 - 15.0 % 09/10/2025 6:57 PM EDT [facility] Platelets 66(L) 140 - 400 10E3/uL 09/10/2025 6:57 PM EDT [facility] MPV 7.8 7.5 - 11.5 fL 09/10/2025 6:57 PM EDT [facility] Whole Blood 09/10/2025 5:03 PM EDT 09/10/2025 6:33 PM EDT us Buddy Zimmerman MD LAB BLOOD ORDERABLES Final Resul t [facility] [address] [place] [facility]. [address] documented in this encounter Visit Diagnoses Diagnosis Alcoholic cirrhosis of liver with ascites (CMS-HCC) Pre-transplant evaluation for chronic liver disease documented in this encounter Additional Health Concerns Assessment Noted Time PHQ-9 Depression Total Score: 8 09/10/20 11:09 AM EDT documented as of this encounter Care Teams Restaurant Managing Partner Relationship Specialty Start Date End Date System, Provider Not In PCP - General 09/10/25 10/24/25 documented as of this encounter
--- OUTSIDE RECORDS SUMMARY | 2025-09-12 07:47 | XMS_ITS | Encounter Summary ---
Author Organization Healthcare Address [address] [place] [address] Care Team Providers Care Diabetes Physician Name Role Phone Ruma Hernández UX VISUAL DESIGNER Unavailable [phone] Chris Medel MD Primary Care Provider [phone] Reason for Referral * Imaging (Routine) - Closed Specialty Diagnoses / Procedures Referred By Gianna reyes Referred To Contact Radiology Diagnoses Pre-liver transplant, listed Procedures MR Abdomen w and wo IV Contrast Portia Maguire MD [address] [address] Phone: tel: fax: Referral ID Status Reason Start Date Expiration Date Visits Re quested Visits Authorized [id number] Closed 09/05/2025 03/07/2027 1 1 Reason for Visit * Imaging (Routine) - Closed Specialty Diagnoses / Procedures Referred By Gianna reyes Referred To Contact Radiology Diagnoses Pre-liver transplant, listed Procedures MR Abdomen w and wo IV Contrast Portia Maguire MD [address] [address] Phone: tel: fax: Referral ID Status Reason Start Date Expiration Date Visits Re quested Visits Authorized [id number] Closed 09/05/2025 03/07/2027 1 1 Encounter Details Date Type Department Care Team (Latest Contact Info) Description 09/12/2025 8:47 AM EDT - 09/12/2025 11:59 PM EDT Hospital Encounter [facility] Radiology [address] [place] [address] Pre-liver transplant, listed Discharge Disposition: [...] do you attend [facility] or buddhism services? More than 4 times [...] drink first t luisa in the morning (EYE-APPLIANCE TESTER) to steady your nerves or to get [...] 11 09/13/2024 ergocalciferol (Vitamin D-2) 1.25 MG (37262 UT) capsule Take 1 capsule by mouth [...] [facility], [address] [place] [address] Suhail Brock MD [address] [place] [address] 01/24/2026 4:40 PM EDT Office Visit [facility] [address] [facility], [address] [place] [address] Moustapha Katz MD [address] [facility] [address] [place] [address] documented as [...] are consistent with and integrated into the [place] [employer] Association for the Study of Liver Diseases [...] using the following sequences: coronal single shot [id number] fast spin echo, axial T2 weighted sequences [...] are consistent with and integrated into the [place] Associationfor the Study of Liver Diseases (AASLD) [...] documented as of this encounter Care Teams Diabetes Physician Relationship Specialty [place] [id number] PCP - General 03/14/25 Ruma Hernández APRN [address] [place] [address] Referring Physician Gastroenterology 07/30/23 documented as of this encounter
--- OUTSIDE RECORDS SUMMARY | 2025-09-12 09:00 | XMS_ITS | Encounter Summary ---
Author Organization Healthcare Address [address] [place] [address] Care Team Providers Care Personnel Worker Name Role Phone Ruma Hernández CORPORATE EXECUTIVE CHEF Unavailable [phone] Chris Medel MD Primary Care Provider [phone] Encounter Details Date Type Department Care Team (Latest Contact Info) Description 09/12/2025 10:00 AM EDT Office Visit [facility] [address] [facility] [address] [place] [address] Portia Maguire MD [address] [place] [address] Pre-liver transplant, listed (Primary Dx); [...] attend [facility] or rastafari services? More than 4 times per year 02/19/2025 Do you belong to any clubs o r organizations such as mormonism groups, [employer], [employer] or athleRACTIV groups, or school groups? Yes 02/19/2025 How [...] attend [facility] or rastafari services? More than 4 times per year 06/15/2025 Do you belong to any clubs o r organizations such as mormonism groups, [employer], [employer] or athleRACTIV groups, or school groups? Yes 06/15/2025 Attends [...] hard at all 06/15/2025 [facility] [place] of Occupat ional Health - [...] living in a mcc (including now)? No 06/15/2025 CAGE ASSESSMENT Answer [...] drink first t luisa in the morning (EYE-RESIDENTIAL PROPERTY MANAGER) to steady your nerves or to get rid of a hangover? 0 06/14/2025 CAGE Questionnaire Score 0 025 Utilities Answer Date Recorded In the past 12 months has th [employer], gas, oil, or water company threatened to [...] Office Building Urology [address], [address] [place] [address] Suhail Brock MD [address] [facility] [address] [place] [address] 01/24/2026 4:40 PM EDT Office Visit [facility] [email or web address] [place] [facility] [address] [facility] [address], [address] [place] [address] Moustapha Katz MD [address] [facility] [facility] [address] [place] [address] documented as of this encounter [...] documented as of this encounter Care Teams Personnel Worker Relationship Specialty [place] [address] PCP - General 03/14/25 Ruma Hernández APRN [address] [facility] [address] [place] [address] Referring Physician Gastroenterology 07/30/23 documented as of this encounter
--- OUTSIDE RECORDS SUMMARY | 2025-09-24 13:00 | XMS_ITS | Encounter Summary ---
Author Organization [facility] Address [address] [place] [phone] Care Team Providers Care Manual Equipment Mechanic Name Role Phone System, Provider Not In [...] release of HIV test results or diagnoses. [id number] Reason for Visit * Reason Comments Liver Transplant Evaluation Encounter Details Date Type Department Care Team (Late st Contact Info) Description 09/24/2025 1:00 PM EST Office Visit [facility] Liver Transplant at [address] [phone] Nigel Reaves MD [address] [place] [phone] Esophageal varices without bleeding, unspecified esophageal [...] center. He also has dual listing at [facility]. Liver disease diagnosed in 2022 based on [...] 2:11 PM EST) Culture Result No Growth [facility] Midstream Urine URINE SPECIMEN / Unknown 09/24/2025 2:11 PM EST 09/24/2025 3:25 PM EST us Nigel Reaves MD MICROBIOLOGY - GENERAL ORDERABLE S Final Result [facility] [address] [place] [address], [facility] * (ABNORMAL) Urinalysis w/Rfl to Microscopic (09/24/2025 2:11 PM EST) Color, UA Yellow Yellow,Straw 09/24/2025 3:25 PM EST [facility] Clarity, UA Cloudy(A) Clear 09/24/2025 3:25 PM EST [facility] Specific [place], UA 1.019 1.005 - 1.035 09/24/2025 3:25 PM EST [facility] pH, UA 6.0 5.0 - 8.0 09/24/2025 3:25 PM EST [facility] Protein, UA 30(A) Negative mg/dL 09/24/2025 3:25 PM EST [facility] Glucose, UA Negative Negative mg/dL 09/24/2025 3:25 PM EST [facility] Ketones, UA Negative Negative mg/dL 09/24/2025 3:25 PM EST [facility] Bilirubin, UA Negative Negative 09/24/2025 3:25 PM EST [facility] Blood, UA Large(A) Negative 09/24/2025 3:25 PM EST [facility] Nitrite, UA Negative Negative 09/24/2025 3:25 PM [facility] Urobilinogen, UA <2.0 0.2 - 1.9 mg/dL 09/24/2025 3:25 PM EST [facility] Leukocyte Esterase, UA Large(A) Negative 09/24/2025 3:25 PM [facility] RBC, UA 61(H) 0 - 3 /HPF 09/24/2025 3:25 PM EST [facility] WBC, UA >100(H) 0 - 5 /HPF 09/24/2025 3:25 PM EST [facility] Squam Epithel, UA 1 0 - 5 /HPF 09/24/2025 3:25 PM EST [facility] Bacteria, UA Rare(A) None Seen /HPF 09/24/2025 3:25 PM EST [facility] Mucus, UA Present(A) None Seen /HPF 09/24/2025 3:25 PM EST [facility] Urine 09/24/2025 2:11 PM EST 09/24/2025 2:51 PM EST Nigel Reaves MD URINE ORDERABLES Final Result [facility] [address] [place] [address], [facility] documented in this encounter Visit Diagnoses [...] documented as of this encounter Care Teams Manual Equipment Mechanic Relationship Specialty Start Date End Date System, Provider Not In PCP - General 09/10/25 10/24/25 documented as of this encounter
--- OUTSIDE RECORDS SUMMARY | 2025-10-17 08:52 | XMS_ITS | Encounter Summary ---
Author Organization [facility] Address [address] [place] [id number] Care Team Providers Care News Video Editor Name Role Phone System, Provider Not In [...] release of HIV test results or diagnoses. [id number] Health Reason for Visit * Auth/Cert (Routine) Specialty Diagnoses / Procedures Referred By Gianna t Referred To Contact Diagnoses TRANSPLANT LIVER Procedures TRANSPLANT LIVER [facility]IOP [address] [place] [address] Phone: tel: Referral ID Status Reason Start Date Expiration Date Visits Re quested Visits Authorized [id number] 1 1 Encounter Details Date Type Department Care Team (Latest Contact Info) Description 10/17/2025 8:52 AM EST - 10/22/2025 4:06 PM EST Hospital Encounter [facility] SICU [address] [place] [address] Vani Winkler MD [facility] [place] [id number] S/P liver transplant (CMS-HCC) (Primary Dx); End stage liver disease (CMS-HCC); Immunosuppression (CMS-HCC) Discharge Disposition: Home WITH Home Health [...] living in a halfway (including now)? No 10/17/2025 Utilities Answer Date [...] Peripheral Vascular (WDL) X 10/22/2025 8:00 AM Charbel Cheatham RN * Mobility Question Answer Date of Assessment Author Anti-Embolism Devices Bilateral;Sequenti al compression devices, below knee 10/22/2025 12:00 PM Charbel Cheatham RN Anti-Embolism Intervention Off 10/22/2025 12:00 PM Charbel Cheatham RN * AUDIT-C Score Answer Date of Assessment Author 0 10/17/2025 11:44 PM Kira Chandler RN * Alcohol Use Question Answer Date of Assessment Author Q1: [...] one occasion? Never 10/17/2025 11:44 PM Kira Chandler, R N * PT 6 Clicks Question Answer Date of Assessment Author [facility] Score - Performed/Achieved 8 Walks 250 feet or more 10/22/2025 12:09 PM Jen Radford, PT * Mobility: AM-PAC/-HLM Question Answer Date of Assessment Author AM-PAC Mobility Score 17 10/22/2025 12:00 PM Charbel Cheatham RN Translation to [facility] 5 10/22/2025 12:00 PM Charbel Cheatham RN -[facility] Score - Performed/Achieved Goal (Y/N) No 10/22/2025 12:00 PM Charbel Cheatham RN Early Mobility/Exercise Safety Screen (Med/Surg) Proceed with mobilization - No exclusion criteria met 10/22/2025 12:00 PM Charbel Cheatham RN Early Mobility/Exercise Safety Screen (ICU) Proceed with mobilization - No exclusion criteria met 10/22/2025 12:00 PM Charbel Cheatham RN Goal -[facility] 5 Standing (1 or mor e minutes) 10/22/2025 12:00 PM Charbel Cheatham RN * Mobility Question Answer Date of Assessment Author Anti-Embolism Devices Bilateral;Sequenti al compression devices, below knee 10/22/2025 12:00 PM Charbel Cheatham RN Anti-Embolism Intervention Off 10/22/2025 12:00 PM Charbel Cheatham RN documented as of this encounter Discharge Summaries * LAISHA Hernandez - 10/22/2025 1:[address] [facility] Inpatient Discharge Summary Patient: David Serrano Age: 65 y.o. CSN: [id number] Date of Admission: 10/17/2025 Date of Discharge: 10/22/2025 Attending Physician: Lane Troy MD Primary Care Physician: PROVIDER NOT IN SYSTEM Diagnoses Present on Admission Past Medical History: Diagnosis Date Epididymitis Hemochromatosis Hypertension Kidney stone Metabolic dysfunction-associated steatotic liver disease and increased alcohol intake (MetALD) Portal vein thrombosis UTI (urinary tract infection) Discharge Diagnoses There are no hospital problems to display for this patient. Operations/Procedures Performed (include dates) Surgeries: Surgical/Procedural Cases on this Admission Case IDs Date Procedure Surgeon Location Status [id number] 10/17/25 TRANSPLANT LIVER Vani Winkler MD OR [facility] Lines and tubes: Patient Lines/Drains/Airways Status Active LDAs None Other Procedures / Pertinent Imaging: See Imaging Tab Consulting Services (include reason) SICU PT/OT Powder Loader Allergies Allergies[1] Discharge Medications Medication List TAKE these medications, which are [...] scale: Blood glucose 150-199 mg/dL =1units, Blood -613 mg/dL =2 units, Blood glucose 250-299 mg/dL [...] Your Medications These medications were sent to [facility] [address] [place] [address] Hours: Wednesday - Wednesday: 8:00AM - 6:00PM acetaminophen 325 MG tablet acyclovir 400 MG tablet alcohol swabs Padm blood-glucose meter Misc calcium-vitamin D 500 mg-5 mcg (200 unit) per tablet furosemide 40 MG tablet glucose blood test strip insulin lispro 100 unit/mL Inpn lancets Misc methocarbamoL 500 MG tablet mycophenolate 250 mg capsule NIFEdipine 30 MG (OSM) 24 hr tablet oxyCODONE 5 MG immediate release tablet pantoprazole 40 MG tablet pen needle, diabetic 32 gauge x Ndle phosphorus 250 mg tablet polyethylene glycol 17 gram/dose powder potassium chloride 10 MEQ CR tablet predniSONE 5 MG tablet senna-docusate 8.6-50 mg per tablet sulfamethoxazole-trimethoprim 400-80 mg per tablet tacrolimus 1 MG capsule Discharge Exam Physical Exam Vitals reviewed. Constitutional: General: He is not in acute distress. Appearance: He is not toxic-appearing. HENT: Head: Normocephalic and atraumatic. Eyes: General: No scleral icterus. Extraocular Movements: Extraocular movements intact. Pupils: Pupils are equal, round, and reactive to light. Cardiovascular: Rate and Rhythm: Normal rate and regular rhythm. Pulses: Normal pulses. Pulmonary: Effort: Pulmonary effort is normal. No respiratory distress. Abdominal: General: Abdomen is flat. There is no distension. Palpations: Abdomen is soft. Comments: Incision c/d/I with radha Musculoskeletal: General: Normal range of motion. Skin: General: Skin is warm. Coloration: Skin is not jaundiced. Neurological: General: No focal deficit present. Mental Status: He is alert. Mental status is at baseline. Cranial Nerves: No cranial nerve deficit. Reason for Admission David Serrano is a 65 y.o. 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 Hospital Course HEPATOLOGY - MELD 20. decompensated by hepatic encephalopathy, ascites, varices, and portal gastropathy who underwent OLT on 10/17/2025. Cold ischemia time per op note. Left renal vein ligation for portal flow modulation. Post-operative course uncomplicated. Explant pathology: in process at discharge Opening LFTs were high and received NAC. Liver US on POD5 with elevated MPV velocity. Repeat US in 2-3 weeks. LFT's were downtrending and on day of discharge AST/ALT 42/270; AlkPhos 84; Tbili 1.0. RENAL/ - Patient's iniguez catheter was removed and patient voided spontaneously on their own. Creatinine on day of discharge 0.81 with stable UOP. Discharged on Lasix 40 mg PO daily for high drain output and edema. NEURO/PAIN - Patient placed on IV Dilaudid post-op, then transitioned to PO pain meds. Patient without chronic pain needs prior to transplant. Discharged on Multi-modal pain regimen. CV - Patient with grade II diastolic dysfunction, moderate intrapulmonary shunt history prior to arrival. On Nifedipine XL at discharge for HTN. Hemodynamically stable at discharge. PULM - Patient was extubated following liver transplant and weaned to RA. IS encouraged. ID - patient received cyndi-operative antibiotics as per protocol. Patient was initiated on Acyclovir and SS Bactrim for ID prophylaxis. CMV status was D-/R- (donor/recipient). IMMUNOSUPPRESSION - Immunosuppression was standard. Patient initiated on Cellcept and steroid taperas per protocol Prograf was initiated post-operatively with levels monitored daily. The patient wasdischarged on the following immunosuppresion: Cellcept 500 mg BID; Steroid taper per protocol; Tacro 5 mg BID (FK level on day of discharge= 4.0). FEN/GI - Initially had an NGT due to mobilization of duo intra-op. NGT removed on POD2. Patient initiated on clears and advanced as tolerated. Electrolytes replaced prn. Discharged on a bowel regimenas needed. [facility] - PT/OT evaluated patient and recommended home PT/OT. ENDO - A1C is 4.0. Pt was not on diabetic regimen prior to arrival. Patient developed steroid-induced hyperglycemia 2/2 steroid regimen. Discharged home on the following regimen: LDSSI. Patient met w/ remotely operated vehicle prior to discharge. HEME - Post-operatively, monitored for bleeding, hemodynamic stability with serial TEGs, CBCs, and drain output. Blood transfusions given to keep Hgb >7g. At discharge patient's hemoglobin remained stable. DVT prophylaxis held due to platelets <30. No Caprini DVT prophylaxis at discharge due to ongoing low platelets. PSYCH - No issues. PROPHYLAXIS - patient initiated on SQ heparin and had SCDs on in bed for DVT prophylaxis. DISPO - patient was discharged to home with home care (to start 10/29 due to [facility] staffing, outpatient labs this week). Labs to be drawn qMon/Thurs. Patient and family received post-transplant education from junior project coordinator as well as medication teaching from transplant pharmacist. At time of discharge, the patient was tolerating oral food and hydration, voiding spontaneously, had return of bowel function, was ambulating without difficulty, and pain was controlled on oral medications. The patient was determined to be suitable for discharge and the patient felt comfortable with that decision. Condition on Discharge 1. Functional Status: normal 2. Mental Status: Alert/Oriented 3. Dietary Restrictions / Tube Feeding / TPN Diet/Nutrition Orders Diet Regular(7) Frequency: Effective Now Number of Occurrences: Until Specified Order Questions: Suicide/Behavior Risk Modification? No Dietary nutrition supplements Frequency: TID Number of Occurrences: Until Specified Order Questions: Select Supplement: Magic Cup-thickened frozen supplement Dietary nutrition supplements Frequency: TID Number of Occurrences: Until Specified Order Questions: Select Supplement: Gelatein Plus- clear thickened, gelatin high protein ([facility] only) As listed above 4. Discharge specific orders: None required 5. Core measures followed: (if this is a core measure patient) Discharge Weight: 220 lb (99.8 kg) Disposition Home with assistance Home with supervision Home with Home Health Follow-Up Appointments Future Appointments Date Time Provider Department Center 10/30/2025 9:00 AM [facility], [facility] [address] [place] [address] Signed: LAISHA HERNANDEZ 10/22/2025, 1:32 PM [1] Allergies Allergen Reactions Lisinopril Other (See Comments) Cosigned by Vani Winkler MD at 10/30/2025 12:49 PM EST Associated attestation - Vani Winkler MD - 10/30/2025 12:49 PM EST I have personally seen and examined this patient on 10/22/25. I have discussed the patient's care with the ELÍAS/resident team. I agree with the ELÍAS/resident???s findings and plan as documented in the ELÍAS/resident???s note. Immunosuppression reviewed and discussed with multidisciplinary team. Vani Winkler MD PhD Transplant Surgery * Citlaly Zimmerman RN - 10/22/2025 12:[address] [facility] Care Management Discharge Summary Patient name: David Serrano Patient : 1960 Age: 65 y.o. Gender: male Patient emergency contact: Extended Emergency Contact Information Primary Emergency Contact: Stacy Serrano Address: [address] [place] [address] Mobile Relation: Spouse Attending provider: Vani Winkler MD Primary care physician: PROVIDER NOT IN SYSTEM The MD has indicated that the patient is ready for discharge. David Serrano was referred and accepted at [facility] ([phone]) for PT/OT and SN (lab draws) . [...] Services at Home post discharge: Home Health Residential Health Care Name/Phone # post discharge: [facility] ([phone]) Home Health Services Types at Discharge: PT/OT/CUSTOMER EXPERIENCE ANALYST, Retirement ([facility] for lab draws.) Citlaly Zimmerman RN/CM [phone] documented in this encounter Discharge Instructions * [...] up appointments. Diet: Regular diet Drain/Dressing/Wound Care: [place] will be removed in clinic approximately 3-4 [...] kept under 2 gm/day. Please discuss withyour blood bank coordinator if you have any question about appropriate dose to take. Other Instructions: Call post-liver transplant clinic with questions [phone] or call [facility] at [phone] and ask for the liver junior project coordinator reclamation supervisor if you experience any of the following: [...] Date and time as instructed by your junior project coordinator in liver transplant clinic in [facility], 3rd floor or Video Visit. PLEASE GET LABS DRAWN THIS WEDNESDAY! Home Health Care will begin coming to your house every Wednesday/ starting next week, 10/29. documented in this encounter Medications at Time of Discharge acetaminophen (TYLENOL) 325 MG tablet Take 3 [...] tablet 2 10/22/2025 3:31 PM EST 10/18/2025 insulin lispro 100 unit/mL InPn Administer insulin with meals per sliding scale: Blood glucose 150-199 mg/dL =1units, Blood glucose 200-249 mg/dL =2 units, Blood glucose 250-299 mg/dL =3 units, Blood glucose 300-349 mg/dL =4 units, Blood glucose greater than 349 mg/dL = 5 units 15 mL 2 10/22/2025 3:31 PM EST 10/22/2025 lancets Misc Use to test blood sugar four times a day. 100 each 11 10/22/2025 3:31 PM EST 10/18/2025 mycophenolate (CELLCEPT) 250 mg capsule Take 2 capsules (500 mg total) by mouth 2 times a day. 120 capsule 5 10/22/2025 3:31 PM EST 10/18/2025 NIFEdipine (PROCARDIA-XL) 30 MG (OSM) 24 hr tablet Take 1 tablet (30 mg total) by mouth daily. 30 tablet 10/22/2025 3:31 PM EST 10/22/2025 pantoprazole (PROTONIX) 40 MG tablet Take 1 [...] 238 g 10/22/2025 3:31 PM EST 10/18/2025 predniSONE (DELTASONE) 5 MG tablet Take 6 tablets by mouth in the morning on 10/23, then take 5 tablets by mouth on 10/24, and then starting on 10/25, take 4 tablets daily 123 tablet 2 10/22/2025 3:31 PM EST 10/22/2025 senna-docusate (SENNOSIDES-DOCU SATE SODIUM) 8.6-50 mg per tablet Take 1 tablet by mouth at bedtime as needed for constipation. 30 tablet 10/22/2025 3:31 PM EST 10/18/2025 sulfamethoxazole -trimethoprim (BACTRIM) 400-80 mg per tablet Take 1 tablet by mouth daily. 30 tablet 2 10/22/2025 3:31 PM EST 10/18/2025 tacrolimus (PROGRAF) 1 MG capsule Take 5 capsules (5 mg total) by mouth 2 times a day. 600 capsule 5 10/22/2025 3:31 PM EST 10/22/2025 oxyCODONE (ROXICODONE) 5 MG immediate release tabletIndication s:S/P liver transplant (CMS-HCC) Take 1 tablet (5 mg total) by mouth every 8 hours as needed for up to 3 days. 9 tablet 10/22/2025 3:31 PM EST 10/22/2025 5 furosemide (LASIX) 40 MG tablet Take 1 tablet (40 mg total) by mouth daily. 7 tablet 10/22/2025 3:31 PM EST 10/22/2025 5 methocarbamoL (ROBAXIN) 500 MG tablet Take 1 tablet (500 mg total) by mouth 3 times a day. 90 tablet 10/22/2025 3:31 PM EST 10/18/2025 5 potassium chloride (KLOR-CON) 10 MEQ CR tablet Take 1 tablet (10 mEq total) by mouth daily. 7 tablet 10/22/2025 3:31 PM EST 10/22/2025 5 sod phos di, mono-K phos mono (PHOSPHORUS) 250 mg Tab tablet Take 250 mg by mouth 2 times a day. 14 tablet 10/22/2025 3:31 PM EST 10/22/2025 5 documented as of this encounter Progress Notes [...] Immunosuppression schedule as per Education Note by junior project coordinator earlier this admission. Reviewed discharge medications [...] in clinic? (If significant deficits, communicate with junior project coordinator): Standard continual education Future medications to [...] Refills: 0 Associated Diagnoses: S/P liver transplant (CMS-HCC) predniSONE (DELTASONE) 5 MG tablet Take 6 [...] Cori Womack PharmD Solid Organ Transplant Clinical Vice Admiral Contact via [employer] Secure Chat * Cori Womack PharmD - 10/22/2025 4:06 [...] Cori Womack PharmD Solid Organ Transplant Clinical Vice Admiral Contact via [employer] Secure Chat * Jen Mckeon, PT - 10/22/2025 12:10 PM EST Physical Therapy Treatment Name: David Serrano : 1960 Attending Physician: Vani Winkler MD Admission Diagnosis: TRANSPLANT LIVER Date: 10/22/2025 [facility] [address] Reviewed Pertinent hospital course: Yes Hospital Course [...] Long-term goal to be met by: 11/02/25 Highway Engineer Goal : =STG Patient/Family Education Educated patient [...] TRANSPLANT LIVER; Surgeon: Vani Winkler MD; Location: [facility]; Service: Transplant; Laterality: N/A; [1] Patient Active Problem List Diagnosis Alcoholic cirrhosis (CMS-HCC) Ascites Hepatic encephalopathy (CMS-HCC) Esophageal varices (CMS-HCC) Pre-transplant evaluation for chronic liver disease Encounter for pre-transplant evaluation for liver transplant * Leticia Lomeli MD - 10/22/2025 7:07 AM EST Transplant Surgery Progress Note Name: David Serrano CSN: [id number] Date: 10/22/2025 7:07 AM OR Date: 10/17/2025 Subjective 5 Days Post-Op from OLT Tolerating PO intake Robust UOP Objective Vitals: Temp: [98.4 ??F (36.9 ??C)-98.7 ??F (37.1 ??C)] 98.7 ??F (37.1 ??C) Heart Rate: [65-84] 72 Resp: [11-19] 17 BP: (141-166)/(75-96) 142/96 I/O: Intake/Output Summary (Last 24 hours) at 10/22/2025 0707 Last data filed at 10/22/2025 0335 Gross per 24 hour Intake 880 ml Output 2640 ml Net -1760 ml Drain Output and Description: - Perihepatic Drain 110 mL (SS) - Hilar Drain 80 mL (SS) Physical Exam: Gen: NAD CV: RRR Resp: nonlabored breathing Abd: Soft, NT/ND, Wound: c/d/I with some strike through on dressing Ext: warm and well perfused, MARGI : iniguez in place Labs: Recent Labs 10/20/25 0531 10/21/25 0635 [...] PHOS 4.8* 2.8 2.3 Recent Labs 10/20/25 0924 10/20/25 1424 10/20/25 1717 10/21/25 0818 10/21/25 1227 10/21/25 1631 POCGMD 227* 205* 195* 112* 181* 230* Recent Labs 10/20/25 0531 10/21/25 0635 10/22/25 0528 AST 161* 64* 42* ALT 532* 389* 270* BILITOT 0.9 0.9 1.0 BILIDIRECT 0.43* 0.41* 0.28 ALKPHOS 67 83 84 ALBUMIN 2.2* 2.2* 2.2* 2.2* 2.1* Recent Labs 10/19/25 0829 10/19/25 2303 INR 1.5* 1.4* PROTIME 19.1* 18.2* Imaging: No results found. Current Medications: Scheduled Meds: acetaminophen 975 mg Oral Q8H acyclovir 800 mg Oral BID [Held by provider] heparin 5,000 Units Subcutaneous 3 times per day insulin lispro 0-12 Units Subcutaneous TID AC magnesium oxide 400 mg Oral Q8H methocarbamoL 500 mg Oral QID mycophenolate 500 mg Oral BID pantoprazole 40 mg Oral DAILY 0600 pantoprazole (PROTONIX) IV 40 mg Intravenous DAILY 0600 potassium chloride 40 mEq Oral Once Followed by potassium chloride 40 mEq Oral Once predniSONE 40 mg Oral Once Followed by [START ON 10/23/2025] predniSONE 30 mg Oral Once Followed by [START ON 10/24/2025] predniSONE 25 mg Oral Once Followed by [START ON 10/25/2025] predniSONE 20 mg Oral Daily 0900 sod phos di, mono-K phos mono 500 mg Oral Q4H sulfamethoxazole-trimethoprim 1 tablet Oral Daily 0900 tacrolimus 3 mg Oral BID Continuous Infusions: PRN Meds: dextrose 10% in water OR dextrose 10% in water, oxyCODONE OR oxyCODONE Assessment/Plan David Serrano is a 65 y.o. 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 Plan today - US - Dc later today ESLD 2/2 EtOH S/p OLT Decreased portal vein flow, ligated renal vein requiring duodenal manipulation Transaminitis s/p NAC - MMPC - LFTs - pred taper, cellcept - tac 3/3 - Advance diet as tolerated, Regular diet Acute hypoxic respiratory failure-improving - extubated 10/18 - sating well on RA PPX: SQH, SCD, PPI Dispo: Floor v discharge LETICIA LOMELI MD Transplant Surgery [facility] Surgery Resident Cosigned by Vani Winkler MD at 10/30/2025 12:49 PM EST Associated attestation - Vani Winkler MD - 10/30/2025 12:49 PM EST I have personally seen and examined this patient on 10/22/25. I have discussed the patient's care with the ELÍAS/resident team. I agree with the ELÍAS/resident???s findings and plan as documented in the ELÍAS/resident???s note. Immunosuppression reviewed and discussed with multidisciplinary team. Vani Winkler MD PhD Transplant Surgery * Keith Justin MD - 10/21/2025 6:26 AM EST Transplant Surgery Progress Note Name: David Serrano CSN: [id number] Date: 10/21/2025 6:26 AM OR Date: 10/17/2025 Subjective 4 Days Post-Op from OLT Tolerating PO intake Robust UOP Objective Vitals: Temp: [97.7 ??F (36.5 ??C)-98.5 ??F (36.9 ??C)] 97.7 ??F (36.5 ??C) Heart Rate: [60-74] 63 Resp: [11-20] 16 BP: (136-173)/(76-128) 138/83 Arterial Line BP: (158-169)/(77-83) 169/81 I/O: Intake/Output Summary (Last 24 hours) at 10/21/2025 0627 Last data filed at 10/21/2025 0254 Gross per 24 hour Intake 1130 ml Output 1640 ml Net -510 ml Drain Output and Description: - Perihepatic Drain 110 mL (SS) - Hilar Drain 80 mL (SS) Physical Exam: Gen: NAD CV: RRR Resp: nonlabored breathing Abd: Soft, NT/ND, Wound: c/d/I with some strike through on dressing Ext: warm and well perfused, MARGI : iniguez in place Labs: Recent Labs 10/19/25 0829 10/19/25 2303 10/20/25 0531 WBC 9.8 7.0 6.1 HGB 9.6* 8.9* 8.5* HCT 26.8* 25.8* 24.6* PLT 22* 20* 17* Recent Labs 10/19/25 0829 10/19/25 2303 10/20/25 0531 NA 145 144 142 K 3.6 3.6 3.8 CL 113* 110 111* CO2 BUN 38* 46* 47* CREATININE 1.16 1.24 1.15 GLUCOSE 129* 184* 198* CALCIUM 7.2* 7.1* 6.8* MG 2.0 2.1 2.1 PHOS 4.0 4.9* 4.8* Recent Labs 10/19/25 1724 10/19/25 2302 10/20/25 0530 10/20/25 0924 10/20/25 1424 10/20/25 1717 POCGMD 166* 185* 208* 227* 205* 195* Recent Labs 10/19/25 0829 10/19/25 2303 10/20/25 0531 AST 450* 223* 161* ALT 725* 569* 532* BILITOT 1.0 1.0 0.9 BILIDIRECT 0.44* 0.48* 0.43* ALKPHOS 65 68 67 ALBUMIN 2.2* 2.2* 2.2* 2.2* 2.2* 2.2* Recent Labs 10/18/25 2220 10/19/25 0829 10/19/25 2303 INR 1.8* 1.5* 1.4* PROTIME 21.9* 19.1* 18.2* Imaging: No results found. Current Medications: Scheduled Meds: acetaminophen 975 mg Oral Q8H acyclovir 800 mg Oral BID [Held by provider] heparin 5,000 Units Subcutaneous 3 times per day insulin lispro 0-12 Units Subcutaneous TID AC methocarbamoL 500 mg Oral QID methylPREDNISolone sod suc(PF) 50 mg Intravenous Once Followed by [START ON 10/22/2025] predniSONE 40 mg Oral Once Followed by [START ON 10/23/2025] predniSONE 30 mg Oral Once Followed by [START ON 10/24/2025] predniSONE 25 mg Oral Once Followed by [START ON 10/25/2025] predniSONE 20 mg Oral Daily 0900 mycophenolate 500 mg Oral BID pantoprazole 40 mg Oral DAILY 0600 pantoprazole (PROTONIX) IV 40 mg Intravenous DAILY 0600 sulfamethoxazole-trimethoprim 1 tablet Oral Daily 0900 tacrolimus 3 mg Oral BID Continuous Infusions: PRN Meds: dextrose 10% in water OR dextrose 10% in water, oxyCODONE OR oxyCODONE Assessment/Plan David Serrano is a 65 y.o. 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 Plan today - DC left drain - US tomorrow - follow-up labs - regular diet - Encourage ambulation ESLD 2/2 EtOH S/p OLT Decreased portal vein flow, ligated renal vein requiring duodenal manipulation Transaminitis s/p NAC - MMPC - LFTs - pred taper, cellcept - tac 01/15 - Advance diet as tolerated, Regular diet Acute hypoxic respiratory failure-improving - extubated 10/18 - sating well on RA PPX: SQH, SCD, PPI Dispo: Floor KEITH JUSTIN MD Transplant Surgery [facility] Surgery Resident Cosigned by Vani Winkler MD at 10/30/2025 12:49 PM EST Associated attestation - Vani Winkler MD - 10/30/2025 12:49 PM EST I have personally seen and examined this patient on 10/21/25. I have discussed the patient's care with the ELÍAS/resident team. I agree with the ELÍAS/resident???s findings and plan as documented in the ELÍAS/resident???s note. Immunosuppression reviewed and discussed with multidisciplinary team. Vani Winkler MD PhD Transplant Surgery * Leticia Lomeli MD - 10/20/2025 6:42 AM EST Transplant Surgery Progress Note Name: David Serrano CSN: [id number] Date: 10/20/2025 6:42 AM OR Date: 10/17/2025 Subjective 3 Days Post-Op S/p OLT EBL 11L Started TAC yesterday NG removed yesterday, sips of clears Cr elevated 7.1 however stable Objective Vitals: Temp: [97.8 ??F (36.6 ??C)-98.2 ??F (36.8 ??C)] 97.8 ??F (36.6 ??C) Heart Rate: [61-77] 72 Resp: [9-19] 14 BP: (137-163)/(84-101) 162/84 Arterial Line BP: (138-211)/(67-125) 162/79 I/O: Date 10/19/25 0700 - 10/20/25 0659 10/20/25 0700 - 10/21/25 0659 Shift 8868-4155 5916-7263 7689-1485 24 Hour Total 4055-1257 3830-6492 4184-0837 24 Hour Total INTAKE P.O. 100 100 P.O. 100 100 I.V.(mL/kg) 552.9(5.5) 552.9(5.5) Volume (mL) Insulin 7.4 7.4 Volume (mL) (electrolyte-R (pH 7.4) (NORMOSOL-R pH 7.4) IV solution) 545.5 545.5 NG/GT 30 30 Flushes (mL) ([REMOVED] NG/OG Tube Nasogastric Right nostril) 30 30 IV Piggyback 150.3 150.3 Volume (mL) (AMPicillin 1 g in sodium chloride 0.9% 100 mL IVPB ([id number])) 100 100 Volume (mL) (mycophenolate (CELLCEPT) 500 mg in dextrose 5% in water (D5W) 50 mL IVPB) 50.3 50.3 Shift Total(mL/kg) 733.2(7.3) 100(1) 833.2(8.3) OUTPUT Urine(mL/kg/hr) 435(0.5) 450(0.6) 375 1260 Urine 450 375 825 Output (mL) ([REMOVED] IUC (Iniguez) 16 Fr.) 435 435 Drains 250 300 550 Output (mL) (Drain 1 Abdomen Inferior;Lateral;Right) 125 175 300 Output (mL) (Drain 2 Abdomen Inferior;Lateral;Left) 125 125 250 Shift Total(mL/kg) 685(6.9) 450(4.5) 675(6.8) 1810(18.1) Weight (kg) 99.8 99.8 99.8 99.8 99.8 99.8 99.8 99.8 Drain Output and Description: - Perihepatic Drain 225 mL (SS) - Hilar Drain 400 mL (SS) - N mL Physical Exam: Gen: NAD CV: RRR Resp: nonlabored breathing Abd: Soft, NT/ND, Wound: c/d/I with some strike through on dressing Ext: warm and well perfused, MARGI : iniguez in place Labs: Recent Labs 10/19/25 0810/19/25 23010/20/25 0531 WBC 9.8 7.0 6.1 HGB 9.6* 8.9* 8.5* HCT 26.8* 25.8* 24.6* PLT 22* 20* 17* Recent Labs 10/18/25221910/19/2582810/19/25 230 NA 146 145 144 K 3.1* 3.6 3.6 CL 113* 113* 110 CO2 BUN 32* 38* 46* CREATININE 1.09 1.16 1.24 GLUCOSE 129* 129* 184* CALCIUM 7.4* 7.2* 7.1* MG 1.8 2.0 2.1 PHOS 4.0 4.0 4.9* Recent Labs 10/17/25 1700 10/17/25 1742 10/17/25 1823 10/17/25 1926 10/17/25 20210/17/25 2125 10/17/25 2247 10/19/25 0828 10/19/25 0951 10/19/25 1226 10/19/25 1724 10/19/25 2302 10/20/25 0530 POCGLU 96 77 170* 207* 218* 227* -- -- -- -- -- -- -- POCGMD -- -- -- -- -- -- < > 122* 110* 156* 166* 185* 208* < > = values in this interval not displayed. Recent Labs 10/18/25221910/19/25 0810/19/25 230 AST 717* 450* 223* ALT 792* 725* 569* BILITOT 1.0 1.0 1.0 BILIDIRECT 0.51* 0.44* 0.48* ALKPHOS 62 65 68 ALBUMIN 2.1* 2.1* 2.2* 2.2* 2.2* 2.2* Recent Labs 10/18/25 2220 10/19/25 0829 10/19/25 2303 INR 1.8* 1.5* 1.4* PROTIME 21.9* 19.1* 18.2* Imaging: No results found. Current Medications: Scheduled Meds: acyclovir 800 mg Oral BID [Held by provider] heparin 5,000 Units Subcutaneous 3 times per day insulin lispro 0-12 Units Subcutaneous TID AC methocarbamoL 500 mg Intravenous Q8H methylPREDNISolone sod suc(PF) 60 mg Intravenous Once [...] (PROTONIX) IV 40 mg Intravenous DAILY 0600 sulfamethoxazole-trimethoprim 1 tablet Oral Daily 0900 tacrolimus 3 mg Oral BID Continuous Infusions: electrolyte 75 mL/hr (10/19/25 1854) PRN Meds: dextrose 10% in water OR dextrose 10% in water, HYDROmorphone OR HYDROmorphone Assessment/Plan David Serrano is a 65 y.o. 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 Plan today CLD floor S/p OLT Decreased portal vein flow, ligated renal vein requiring duodenal manipulation Transaminitis requiring NAC- improving - POD1 US showed patent vasculature, and possible steatosis - MMPC - LFTs - pred taper, cellcept - tac 2/2 - Advance diet as tolerated, CLD - continue ampicillin Acute hypoxic respiratory failure-improving - extubated 10/18 - sating well on RA PPX: SQH, SCD, PPI Dispo: Stepdown later today LETICIA LOMELI MD Transplant Surgery [facility] Surgery Resident Cosigned by Vani Winkler MD at 10/30/2025 12:49 PM EST Associated attestation - Vani Winkler MD - 10/30/2025 12:49 PM EST I have personally seen and examined this patient on 10/20/25. I have discussed the patient's care with the ELÍAS/resident team. I agree with the ELÍAS/resident???s findings and plan as documented in the ELÍAS/resident???s note. Immunosuppression reviewed and discussed with multidisciplinary team. Vani Winkler MD PhD Transplant Surgery * Cori Womack, JudyD - 10/19/2025 3:13 PM EST Caprini Risk [...] the Caprini Risk Score of [address] [facility] transplant protocol, I recommend discharging on heparin 5,000 units subcutaneously q8h (facility) or Eliquis 2.5 mg PO BID (home) for 30 days total. Endof chemoprophylaxis: 11/17/25. Cori Womack PharmD Solid Organ Transplant Clinical Vice Admiral Contact via YAMAP Secure Chat * Leticia Lomeli MD - 10/19/2025 12:10 PM EST Transplant Surgery Progress Note Name: David Serrano CSN: [id number] Date: 10/19/2025 12:10 PM OR Date: 10/17/2025 Subjective 2 Days Post-Op S/p OLT EBL 11L Doing well this morning, sitting in chair Insulin gtt stopped this morning UOP 1.3L Drains with 650 out Objective Vitals: Temp: [98.2 ??F (36.8 ??C)-99.3 ??F (37.4 ??C)] 98.2 ??F (36.8 ??C) Heart Rate: [62-77] 67 Resp: [9-21] 11 BP: (126-163)/(77-99) 163/85 Arterial Line BP: (138-164)/(64-87) 160/79 I/O: Date 10/18/25 07 - 10/19/25 0659 10/19/25 0700 - 10/20/25 0659 Shift 4150-6176 5509-8921 7897-1473 24 Hour Total 5591-2462 8698-4878 4230-0042 24 Hour Total INTAKE P.O. 50 50 P.O. 50 50 I.V.(mL/kg) 396.1(4) 530.5(5.3) 384.6(3.9) 1311.3(13.1) 7.4(0.1) 7.4(0.1) Volume (mL) Insulin 50.8 23 23.9 97.7 7.4 7.4 Volume (mL) Propofol 10.8 10.8 Volume (mL) Fentanyl 14.6 14.6 Volume (mL) Vasopressin 13.3 13.3 Volume (mL) Pantoprazole 10 10 20 Volume (mL) (electrolyte-R (pH 7.4) (NORMOSOL-R pH 7.4) IV solution) 306.6 497.5 350.7 1154.8 NG/GT 30 30 60 30 30 Flushes (mL) ([REMOVED] NG/OG Tube Nasogastric Right nostril) 30 30 60 30 30 IV Piggyback 650.8 209.5 208.9 1069.2 Volume (mL) (potassium chloride (KCl)/Sterile water 50 mL 20 mEq/50 mL IVPB 20 mEq) 68.4 68.4 Volume (mL) (AMPicillin 1 g in sodium chloride 0.9% 100 mL IVPB (Szzq6Yrt)) 100 200 100 400 Volume (mL) (mycophenolate (CELLCEPT) 500 mg in dextrose 5% in water (D5W) 50 mL IVPB) 50 9.5 40.5 100 Volume (mL) (acetylcysteine (ACETADOTE) 200 mg/mL (20 %) 10 g in sodium chloride 0.45% (1/2 NS) 1,000 mL infusion) 500.8 500.8 Shift Total(mL/kg) 1076.9(10.8) 820(8.2) 593.5(5.9) 2490.5(25) 37.4(0.4) 37.4(0.4) OUTPUT Urine(mL/kg/hr) 570(0.7) 535(0.7) 380(0.5) 1485(0.6) 260 260 Output (mL) (IUC (Iniguez) 16 Fr.) 570 552 848 7633 260 260 Emesis/NG output 200 200 Drainage Output (mL) ([REMOVED] NG/OG Tube Nasogastric Right nostril) 200 200 Drains 200 200 250 650 Output (mL) (Drain 1 Abdomen Inferior;Lateral;Right) 110 125 125 360 Output (mL) (Drain 2 Abdomen Inferior;Lateral;Left) 90 75 125 290 Shift Total(mL/kg) 770(7.7) 735(7.4) 830(8.3) 2335(23.4) 260(2.6) 260(2.6) Weight (kg) 99.8 99.8 99.8 99.8 99.8 99.8 99.8 99.8 Drain Output and Description: - Perihepatic Drain 225 mL (SS) - Hilar Drain 400 mL (SS) - N mL Physical Exam: Gen: NAD CV: RRR Resp: nonlabored breathing Abd: Soft, NT/ND, Wound: c/d/I with some strike through on dressing Ext: warm and well perfused, MARGI : iniguez in place Labs: Recent Labs 10/18/25174610/18/25 2220 10/19/25 0829 WBC 11.8* 11.4* 9.8 HGB 10.0* 9.5* 9.6* HCT 28.3* 26.9* 26.8* PLT 22* 22* 22* Recent Labs 10/18/25 17410/18/25 2220 10/19/25 0829 NA 144 146 145 K 3.4* 3.1* 3.6 CL 112* 113* 113* CO2 24 24 25 BUN 29* 32* 38* CREATININE 1.09 1.09 1.16 GLUCOSE 136* 129* 129* CALCIUM 7.5* 7.4* 7.2* MG 1.9 1.8 2.0 PHOS 3.8 4.0 4.0 Recent Labs 10/17/25 1700 10/17/25 1742 10/17/25 1823 10/17/25 1926 10/17/25 2022 10/17/25 2125 10/17/25 2247 10/19/25 0406 10/19/25 0610 10/19/25 0628 10/19/25 0707 10/19/25 0828 10/19/25 0951 POCGLU 96 77 170* 207* 218* 227* -- -- -- -- -- -- -- POCGMD -- -- -- -- -- -- < > 115* 108* 109* 136* 122* 110* < > = values in this interval not displayed. Recent Labs 10/18/25 17410/18/25 2220 10/19/25 0829 AST 965* 717* 450* ALT 871* 792* 725* BILITOT 1.1 1.0 1.0 BILIDIRECT 0.56* 0.51* 0.44* ALKPHOS 61 62 65 ALBUMIN 2.2* 2.2* 2.1* 2.1* 2.2* 2.2* Recent Labs 10/18/25174610/18/25 2220 10/19/25 0829 INR 1.8* 1.8* 1.5* PROTIME 21.8* 21.9* 19.1* Imaging: No results found. Current Medications: Scheduled Meds: AMPicillin IVPB 1 g Intravenous Q6H [Held by provider] heparin 5,000 Units Subcutaneous 3 times per day insulin regular human 0-10 Units Subcutaneous Q6H methocarbamoL 500 mg Intravenous Q8H [START ON 10/20/2025] methylPREDNISolone sod suc(PF) 60 [...] (PROTONIX) IV 40 mg Intravenous DAILY 0600 tacrolimus 2 mg Oral BID Continuous Infusions: electrolyte 75 mL/hr (10/19/25 0557) PRN Meds: dextrose 10% in water OR dextrose 10% in water, HYDROmorphone OR HYDROmorphone Assessment/Plan David Serrano is a 65 y.o. 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 Plan today Dc iniguez, a line, swan Sips of clears Follow up lasix plan NG out Step down S/p OLT Decreased portal vein flow, ligated renal vein requiring duodenal manipulation Transaminitis requiring NAC- improving - POD1 US showed patent vasculature, and possible steatosis - MMPC - LFTs - pred taper, cellcept - tac 2/2 - sips of clears - continue ampicillin Acute hypoxic respiratory failure-improving - extubated 10/18 - sating well on RA PPX: SQH, SCD, PPI Dispo: Stepdown later today LETICIA LOMELI MD Transplant Surgery [facility] Surgery Resident Cosigned by Vani Winkler MD at 10/30/2025 12:49 PM EST Associated attestation - Vani Winkler MD - 10/30/2025 12:49 PM EST I have personally seen and examined this patient on 10/19/25. I have discussed the patient's care with the ELÍAS/resident team. I agree with the ELÍAS/resident???s findings and plan as documented in the ELÍAS/resident???s note. Immunosuppression reviewed and discussed with multidisciplinary team. Vani Winkler MD PhD Transplant Surgery * Lary Deleondarren, OT - 10/19/2025 11:03 AM EST Occupational Therapy Initial Assessment Name: David Serrano : 1960 Attending Physician: Vani Winkler MD Admission Diagnosis: TRANSPLANT LIVER Date: 10/19/2025 [facility] [address] Reviewed Pertinent hospital course: Yes Hospital Course [...] Hobbies-yes (Comment) Leisure Activities: fishing, play with [employer] Pain Pain Score: 0 - No Pain [...] will complete lower body dressing: Moderate assistance Highway Engineer Goal : Pt will tolerate a bathing assessment penitentiary goal to be met in: 2 weeks [...] TRANSPLANT LIVER; Surgeon: Vani Winkler MD; Location: [facility]; Service: Transplant; Laterality: N/A; [1] Patient Active Problem List Diagnosis Alcoholic cirrhosis (CMS-HCC) Ascites Hepatic encephalopathy (CMS-HCC) Esophageal varices (CMS-HCC) Pre-transplant evaluation for chronic liver disease Encounter for pre-transplant evaluation for liver transplant * Jen Mckeon PT - 10/19/2025 10:24 AM EST Physical Therapy Initial Assessment Name: David Serrano : 1960 Attending Physician: Vani Winkler MD Admission Diagnosis: TRANSPLANT LIVER Date: 10/19/2025 Room: [place] [address] Reviewed Pertinent hospital course: Yes Hospital Course [...] all the time Cognition Overall Cognitive Status: WFL Cognitive Assessment: Orientation Level;Arousal/ Alertness;Behavior;Following Commands;Safety Judgment;Insight [...] Long-term goal to be met by: 11/02/25 [facility] Goal : =STG Patient/Family Education Educated patient [...] TRANSPLANT LIVER; Surgeon: Vani Winkler MD; Location: OR; Service: Transplant; Laterality: N/A; [1] Patient Active Problem List Diagnosis Alcoholic cirrhosis (CMS-HCC) Ascites Hepatic encephalopathy (CMS-HCC) Esophageal varices (CMS-HCC) Pre-transplant evaluation for chronic liver disease Encounter for pre-transplant evaluation for liver transplant * Leticia Lomeli MD - 10/18/2025 12:58 PM EST Transplant Surgery Progress Note Name: David Serrano CSN: [id number] Date: 10/18/2025 12:58 PM OR Date: 10/17/2025 [...] %] 40 % I/O: Date 10/17/25699 - 10/18/2565810/18/25699 - 10/19/25 0659 Shift 1072-4678 4850-9694 9798-5953 24 Hour Total 5185-7253 3367-0273 1067-8884 24 Hour Total INTAKE I.V.(mL/kg) 8000(80.2) 394.1(3.9) [...] 30 60 30 30 IV Piggyback 120 817 636 4943 62.6 62.6 Volume (mL) (methylPREDNISolone sodium succinate (SOLU-medrol) 500 mg in sodium chloride 0.9 % 100 mL IVPB) 100 100 Volume (mL) (AMPicillin 2 g in sodium chloride 0.9% 100 mL IVPB (Cwtw9Dno)) 100 200 300 Volume (mL) (albumin human bottle 5%) 500 500 Volume (mL) (albumin human bottle 25%) 50 50 Volume (mL) (AMPicillin 1 g in sodium chloride 0.9% 100 mL IVPB (Tygx5Lbs)) 97.4 97.4 Volume (mL) (mycophenolate (CELLCEPT) 500 [...] IV Push) 20 20 Shift Total(mL/kg) 120(1.2) 48794(138.6) 1105.1(11.1) 65063.1(150.9) 143.4(1.4) 143.4(1.4) OUTPUT Urine(mL/kg/hr) 1850(2.3) 1000(1.3) 2850(1.2) [...] 2 Abdomen Inferior;Lateral;Left) 100 300 400 Blood 61186 66666 Est Blood Loss 60379 21683 Shift Total(mL/kg) 91334(130.5) 1550(15.5) 85940(146.1) 355(3.6) 355(3.6) Weight (kg) 99.8 99.8 99.8 [...] 2.2* 2.2* 2.2* 2.3* 2.3* Recent Labs 10/17/25 2250 10/18/25 0502 10/18/25 1121 INR 2.1* 2.2* 2.0* PROTIME 25.2* 26.0* 23.6* Imaging: US Abdomen Limited Result Date: 10/18/2025 EXAM: US ABDOMEN LIMITED EXAM: US DUPLEX [id number] COMPLETE INDICATION: Post-op liver transplant Day 1 [...] at 10/18/2025 9:53 AM EST US Duplex Joc-Ssn-Fnxrzpv Comp Result Date: 10/18/2025 EXAM: US ABDOMEN LIMITED EXAM: US DUPLEX [id number] COMPLETE INDICATION: Post-op liver transplant Day 1 [...] below level of diaphragms and outside the maoqr-qp-jqdj. Right internal jugular approach pulmonary artery catheter [...] per SI PPX: SQH, SCD, PPI Dispo: JAJAU LETICIA LOMELI MD Transplant Surgery [facility] Surgery Resident Cosigned by Vani Winkler [...] Cori Womack PharmD Solid Organ Transplant Clinical Vice Admiral Contact via YAMAP Secure Chat * Karen Washington, BK - 10/18/2025 5:32 AM EST SBT started at 0435 completed at 0520 Patient on +5 and 40% RR: 7-12 Vt: 679-940 RSBI: 10-12 AB.34/48/84/25 Patient placed on Delta 5 post SBT documented in this encounter H&P Notes * Aspen Parr MD - 10/17/2025 10:27 AM EST Transplant Surgery History and Physical Patient: David Serrano CSN: [id number] History CC: ESLD HPI: David Serrano is [...] Resource Strain: Low Risk (06/15/2025) Received from [facility] Overall Financial Resource Strain (CARDIA) How hard is it for you to pay for the very basics like food, housing, medical care, and heating?: Not hard at all Food Insecurity: No Food Insecurity (06/15/2025) Received from [facility] Hunger Vital Sign Within the past 12 months, you worried that your food would run out before you got the money to buymore.: Never true Within the past 12 months, the food you bought just didn't last and you didn't have money to get more.: Never true Transportation Needs: No Transportation Needs (06/15/2025) Received from [facility] PRAPARE - Transportation In the past 12 months, has lack of transportation kept you from medical appointments or from getting medications?: No In the past 12 months, has lack of transportation kept you from meetings, work, or from getting things needed for daily living?: No Physical Activity: Inactive (06/15/2025) Received from [facility] Exercise Vital Sign On average, how many days per week do you engage in moderate to strenuous exercise (like a brisk walk)?: 0 days On average, how many minutes do you engage in exercise at this level?: 0 min Stress: No Stress Concern Present (06/15/2025) Received from [facility] [employer] [place] [place] [employer] - Occupational Stress Questionnaire Do you feel stress - tense, restless, nervous, or anxious, or unable to sleep at night because yourmind is troubled all the time - these days?: Only a little Social Connections: Socially Integrated (06/15/2025) Received from [facility] Social Connection and Isolation Panel In a typical week, how many times do you talk on the phone with family, friends, or neighbors?: More than three times a week How often do you get together with friends or relatives?: More than three times a week How often do you attend uatsdin or sikh services?: More than 4 times per year Do you belong to any clubs or organizations such as uatsdin groups, unions, fraternal [...] Housing Stability: Low Risk (06/15/2025) Received from [facility] Housing Stability Vital Sign In the last 12 months, was there a time when you were not able to pay the mortgage or rent on time?: No In the past 12 months, how many times have you moved where you were living?: 0 At any time in the past 12 months, were you homeless or living in a halfway (including now)?: No FH: No family history [...] admitted to SICU post-op. ASPEN PARR MD [facility] Surgery Liver Transplant Pager: [phone] 10:28 AM 10/17/2025 Cosigned by Vani [...] Name: David Serrano Date: 1960 Billing #: [id number] Date of Procedure: 10/17/2025 Diagnosis: Chronic Hepatic Failure without coma Procedure: 1. Orthotopic Liver Transplant 2. Back Bench Preparation Donor Liver 3. Left renal vein ligation 4. Intraoperative dopper ultrasound on liver 5. Liver allograft biopsy Attending surgeons: Surgeons and Role: * Vani Winkler MD - Primary * Popeye Russell MD - Assisting * Elida Wyatt MD - Assisting Findings: Whole organ placed in piggyback fashion with suprahepatic cava of donor to common orifice of all three hepatic veins for IVC anastomosis. Donor main portal vein to recipient main portal vein. Donor celiac axis to recipient GDA/common hepatic artery branch patch. Ligation of left renal vein. Uzpi-tl-pnhe anastomosis performed without stent. Portal Flow Modulation [...] donor was ABO O and UNOS ID [id number], [place] [id number]. This was a 56 yearold brain donor [...] of available help, Dr. Nugent served as financial planning assistant surgeon. Procedure: Back bench preparation of donor [...] After completion of the outflow anastomosis, a Swedish clamp was placed across the donor suprahepatic [...] no further bleeding, we then performed a qpsc-bc-shtd anastomosis. There was no stent placed. This [...] Name: David Serrano Date: 1960 Billing #: [id number] Date of Procedure: 10/17/2025 Diagnosis: Chronic Hepatic Failure without coma Procedure: 1. Back Bench Preparation Donor Liver Attending surgeons: Felice Nugent III, MD Yarn Comber Surgeon(s): Morena Haley MD Indications for Procedure: This is a 65 y.o.-year-old male who has alcohol and A1AT liver disease and chronic liver failure complicated by ascites and HE with a MELD score of 20. A donor organ became available. This donor was ABO O and UNOS ID [id number], [place] [id number]. This was a 56 yearold brain donor [...] the celiac axis. The branches from the artery were controlled with clips and ties. The gallbladder was taken off in the standard top down fashion and the cystic duct and artery ligated with [...] MD Giulia Bencini, MD Anesthesia: General Staff: Gum Machine Filler: Mita Hernandez RN; Aspen Coleman RN Relief Gum Machine Filler: Claritza Mckinnon RN; Jonatan De La O RN; Clair Sanders RN Scrub Person: Samson Mcbride RN Fellow: Chelsie Haley MD Float: Naida Woodruff RN; Jyotsna Singleton RN; Farzana Hamilton; Lizz Cota RN Resident: Aspen Parr MD Estimated Blood Loss: 11 L Specimens: [place] liver and gallbladder Left liver core needle biopsy Right liver core needle biopsy Peritoneal fluid for culture Drains: Drain 1 Abdomen Inferior;Lateral;Right (Active) Number of days: 0 Drain 2 Abdomen Inferior;Lateral;Left (Active) Number of days: 0 IUC (Iniguez) 16 Fr. (Active) Number of days: 0 Transplant-Specific Information UNOS ID: [id number] Cross-clamp: 10/17/25 1250 Out of ice: 10/17/25 [...] 1:42 PM ESTAssociated Order(s): IP CONSULT TO CAR RENTAL MANAGER [facility] Transplant Discharge Education Note Assessment: Received referral [...] 4 - Demonstrates understanding/competency Naomy Gomes RN, MSN,[facility] Diabetes Education Office [phone] Schedule: M-F 8:00am-4:30pm * Oskar Arango RD - 10/22/2025 9:08 AM EST TXP - Follow-up [facility] Medical Nutrition Therapy Reason(s) for Completion: Physician/Nursing [...] Gelatein Plus- clear thickened, gelatin high protein ([facility] only) PO Meal Intake: Pt currently not taking any PO Appetite: [place] Estimated Nutrition Needs This Admission: No Feeding: Able to feed self Estimated Nutrition Needs (needs based on DBW of 70.4 kg) Kcals/day: 7027-8619 (25-30 kcal/kg) Protein g/day: 105-140 (1.5-2.0 g/kg) [...] TRANSPLANT LIVER; Surgeon: Vani Winkler MD; Location: OR; Service: Transplant; Laterality: N/A; Scheduled Meds: acetaminophen [...] Dietitian - Solid Organ Transplant Contact via YAMAP Chat [1] Allergies Allergen Reactions Lisinopril Other (See Comments) * Citlaly Zimmerman RN - 10/19/2025 1:50 PM EST HEALTH Care Management/Social Work Assessment Patient Information Patient Name: David Serrano Hospital Day: 2 Inpatient/Observation: Inpatient Admit Date: 10/17/2025 Admission Diagnosis: TRANSPLANT LIVER Attending provider: Vani Winkler MD PCP: PROVIDER NOT IN SYSTEM Home Pharmacy: [facility] - [place], [place] - [address] [place] [address] [facility] [address] [facility] [address] [facility] [address] [facility] [address] [facility] [address] [facility] [address] [facility] [address] [facility] [address] Pertinent Medications Anticoagulation therapy: Yes Anticoagulant (Name of Drug): hosptial herparin protocol New Diabetic: No Issues related to obtaining medications: N/A Payor Information Medical Insurance Coverage: Payor: ANTHEM / Plan: BLUE ACCESS / Product Type: [...] Status: Number of children and their names: Familia Serrano ([phone]) and Gloria Banegas ([phone]) Relative Search Completed: Yes Demographics Correct:: Yes [...] No Status & Connection to [facility] Services Status & Connection to VA Services Are you a ?: No Support Systems Emergency contact: Extended Emergency Contact Information Primary Emergency Contact: KieshaStacy natarajan Address: [address] [place] [address] Mobile Relation: Spouse Support Systems Legal Status: HCPOA Name of Guardian/POA/ Payee and Phone Number: Stacy Serrano ([phone]) Primary Caregiver: Self, Spouse Caregiver name/phone number: Stacy Serrano ([phone]) Times of available support: Total 24/7 hands on (add comment) (Daughter and Friend willing to assist in pt post op care.) Marital Status: Number of children and their names: Familia Serrano ([phone]) and Gloria Banegas ([phone]) Relative Search Completed: Yes Demographics Correct:: Yes [...] living with spouse in a home in [place], [place]. Pt reports ~2 steps into residence and 0 inside residence. Pt reports having 2 children- Lan Serrano ([phone]) and Gloria Banegas ([phone]). Pt denies any concerns for safety or [...] to chew products and stopped using around 2019. Pt denies any history of home oxygen, [...] kin is spouse (also the HCPOA), Stacy Serrano. LNOK and HCPOA: Stacy Roach ([phone]) PCP: Myles Mosley Transportation: family Advance Directives (For Healthcare) Advance Directive: Patient has advance directive, copy in chart Type of Healthcare Directive: Durable power of health care attorney for health care Healthcare Agent Appointed: Yes Healthcare Agent's Name: Stacy Serrano Healthcare Agent's Pre-existing DNR/DNI Order: No Patient Requests Assistance: No Discharge Plan Met with patient to initiate discussion regarding discharge planning. Introduced self and role of case management/social work and provided contact information. Anticipated Discharge Plan: Home with [facility] Anticipated Discharge Date: 10/22/2025 Anticipated [...] 550 mg BID 24 hour events: - [place] removed, introducer remains - Extubated to NE, now room air - NG pulled on rounds by transplant, ok for sips and chips Past Medical History: Diagnosis Date Epididymitis Hemochromatosis Hypertension Kidney stone Metabolic dysfunction-associated steatotic liver disease and increased alcohol intake (MetALD) Portal vein thrombosis UTI (urinary tract infection) Past Surgical History: Procedure Laterality Date HERNIA REPAIR LIVER TRANSPLANTATION N/A 10/17/2025 Procedure: TRANSPLANT LIVER; Surgeon: Vani Winkler MD; Location: [facility]; Service: Transplant; Laterality: N/A; Home Medications Medication [...] sugar four times a day. blood-glucose meter Misc Use to test blood [...] glucose >349 mg/dL = 12 units lancets [facility] Use to test blood sugar four times [...] ratio: No PaO2 result within 12 hours. Jackson body weight: Jackson body weight: 63.8 kg (140 lb 10.5 [...] lb (99.8 kg) Labs: Recent Labs 10/18/25 1121 10/18/25 17410/18/25 2220 NA 146 144 146 K 3.9 3.4* 3.1* CL 114* 112* 113* CO2 24 24 CALCIUM 7.8* 7.5* 7.4* MG 2.0 [...] % sodium chloride, Last Rate: 3 Units/hr (10/19/25 0557) A/P: Fluids: Normosol at 75/hr #Electrolyte derangements - Manual replacements - Q12 labs per protocol - K replaced RENAL Labs: Recent Labs 10/17/25 2250 10/18/25 0502 10/18/25 1121 10/18/25 17410/18/25 2220 NA 145 146 146 144 [...] in sodium chloride 0.9% 100 mL IVPB (Bkhy4Ocl) 1 g Every 6 hours 10/17/2025 10/19/2025 Admin Instructions: Dosage may need to be adjusted for renal dysfunction. Full dose is 1g IV q6h Use Covg0Uxc Adapter - Mix Thoroughly Before Administration Notes to Pharmacy: On order processing clerk estimated creatinine clearance is 101.9 mL/min (based [...] Best Verbal Response: 5,Best Motor Response: 6 Tania Coma Scale Score: 15 No data found. [...] iniguez PT/OT: pending. 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 Intra-operative course notable for [id number] ascites. EBL 11L, received 03/19//, 2.4L cell-saver, [...] SATURATION ARTERIAL 97 100 PF ratio: 210 Jackson body weight: Jackson body weight: 63.8 kg (140 lb 10.5 [...] 0700 10/17/25 0701 - 10/17/25 1900 10/17/25 1901 - 10/18/25 0700 10/18/25 0701 - 10/18/25 0722 Drain 1 Abdomen [...] 10/18/2025 0700 Gross per 24 hour Intake 03666.44 ml Output 65779 ml Net 472.44 ml IVF: acetylcysteine (ACETADOTE) [...] replaced RENAL Labs: Recent Labs 10/17/25 1018 10/17/25 2250 10/18/25 0502 NA 141 145 146 BUN 13 [...] displayed. Lab 10/18/25 0502 10/17/25 2250 10/17/25212310/17/25202010/17/25 192 INR POC -- -- 2.3* 2.9* 5.9* [...] 0106 10/17/25 2355 10/17/25 2250 10/17/25 2247 10/17/255 10/17/25202110/17/25 1926 10/17/25 1823 10/17/25 1742 10/17/25 1700 10/17/25 1559 10/17/25 1454 10/17/25 1018 POC GLU MONITORING DEVICE 187* 214* -- 231* 244* 246* 249* 237* 227* -- < > -- -- -- -- -- ---- -- -- POCGLUART -- -- -- -- [...] in sodium chloride 0.9% 100 mL IVPB (Bbrj8Tsl) 1 g Every 6 hours 10/17/2025 10/19/2025 Admin Instructions: Dosage may need to be adjusted for renal dysfunction. Full dose is 1g IV q6h Use Iemp0Vsd Adapter - Mix Thoroughly Before Administration Notes to Pharmacy: On order processing clerk estimated creatinine clearance is 101.9 mL/min (based on SCr of 0.81 mg/dL). Route: Intravenous Linked Group 1: Placed in And Linked Group AMPicillin 2 g in sodium chloride 0.9% 100 mL IVPB (Nxkq9Pko) (Completed) 2 g Once 10/17/2025 10/17/2025 Admin Instructions: Begin infusion 20-60 minutes prior to incision Use Xiaz4Kel Adapter - Mix Thoroughly Before Administration Notes to Pharmacy: On order processing clerk estimated creatinine clearance is 98.3 mL/min (based [...] Best Verbal Response: 1,Best Motor Response: 6 Tania Coma Scale Score: 10 No data found. [...] 1 PT/OT: pending. 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 DUARTE EL [...] Pre-op MELD 20. Intra-operative course notable for [id number] ascites. EBL 11L, received 03/19/3/3, 2.4L cell-saver, 8.5L crystalloid. Needed 40 lasix [...] H20] 5 cm H20 - passed SBT: 7.34/// CXR reviewed - ETT well-positioned, no significant [...] 10/18/2025 0758 Gross per 24 hour Intake 89626.34 ml Output 43826 ml Net 484.34 ml SKIN/MUSCULOSKELETAL: No acute [...] Care, and Acute Care Surgery * Oskar Arango, RD - 10/18/2025 7:15 AM ESTAssociated Order(s): IP CONSULT TO NUTRITION SERVICES TXP - Initial [facility] Medical Nutrition Therapy Reason(s) for Completion: Physician/Nursing [...] based on DBW of 70.4 kg) Kcals/day: 4775-3880 (25-30 kcal/kg) Protein g/day: 105-140 (1.5-2.0 g/kg) [...] Dietitian - Solid Organ Transplant Contact via YAMAP Chat [1] Allergies Allergen Reactions Lisinopril Other [...] O2 SATURATION ARTERIAL 100 PF ratio: 270 Jackson body weight: Jackson body weight: 63.8 kg (140 lb 10.5 [...] Drain output: Output by Drain (mL) 10/15/25 07 - 10/15/25 1900 10/15/25 190 - 10/16/25 0700 10/16/25 0701 - 10/16/25 1900 10/16/25 190 - 10/17/25 0700 10/17/25 0701 - 10/17/25 1900 10/17/25 1901 - 10/17/25 2346 Drain 1 Abdomen Inferior;Lateral;Right [...] 10/17/2025 2300 Gross per 24 hour Intake 71357.34 ml Output 19352 ml Net 840.34 ml IVF: fentanyl (SUBLIMAZE) [...] A/P: No active issues. HEMATOLOGIC Labs: Lab 10/17/25224910/17/25212410/17/25202110/17/25192510/17/25 18310/17/25 1700 10/17/25 1656 10/17/25 1559 10/17/25 1455 10/17/25 1454 10/17/25 1018 [...] values in this interval not displayed. Lab 10/17/25224910/17/25183810/17/25165510/17/25 1455 10/17/25 1018 INR 2.1* 7.5* 2.3* 2.3* 1.8* Lab 10/17/25224910/17/25203010/17/25 18310/17/25 1656 10/17/25 1455 FIBRINOGEN LEVEL 253 157* 159* 137* 85* A/P: #Acute blood loss anemia #Chronic anemia - q6 CBC - Transfuse for Hgb < 7 Coagulopathy - Teg based resuscitation - Will transfuse if concerns for ongoing bleeding - Spot check TEG as needed ENDOCRINE FSBS range: Lab 10/17/25224610/17/25212410/17/25202110/17/25192510/17/25 1823 10/17/25 1742 10/17/25 1700 10/17/25 1559 [...] in sodium chloride 0.9% 100 mL IVPB (Rpkb9Hdv) 1 g Every 6 hours 10/17/2025 10/19/2025 Admin Instructions: Dosage may need to be adjusted for renal dysfunction. Full dose is 1g IV q6h Use Uwwh8Mno Adapter - Mix Thoroughly Before Administration Notes to Pharmacy: On order processing clerk estimated creatinine clearance is 101.9 mL/min (based on SCr of 0.81 mg/dL). Route: Intravenous Linked Group 1: Placed in And Linked Group AMPicillin 2 g in sodium chloride 0.9% 100 mL IVPB (Wlsg7Zzn) (Completed) 2 g Once 10/17/2025 10/17/2025 Admin Instructions: Begin infusion 20-60 minutes prior to incision Use Wlvl4Sgn Adapter - Mix Thoroughly Before Administration Notes to Pharmacy: On order processing clerk estimated creatinine clearance is 98.3 mL/min (based [...] Best Verbal Response: 5,Best Motor Response: 6 [place] Coma Scale Score: 15 No data found. [...] 1 PT/OT: pending. 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 DUARTE EL [...] Patient will remain free of falls Goal: [place] Fall Precautions Outcome: Adequate for Discharge Problem: [...] intervention. Outcome: Adequate for Discharge Problem: Non-violent, qcv-hozv-xunhphoolhi restraints Description: Less restrictive alternative interventions will [...] protection of medical procedures, or protection of hospital medical biller access. Outcome: Adequate for Discharge Problem: Knowledge [...] 1960 Age: 65 y.o. Gender: male SSN: [id number] [address]: [address] [place] [address] Phone number: [phone] Patient emergency contact: Extended Emergency Contact Information Primary Emergency Contact: Stacy Serrano Address: [address] [place] [address] Mobile Relation: Spouse Date of admission: 10/17/2025 Date of discharge: 10/22/2025 Attending provider: Lane Troy MD Primary care physician: PROVIDER NOT IN SYSTEM Code status: Full Code Allergies: Allergies[1] Insurance Information Insurance Information [employer] Phone: -- Subscriber: David Serrano Subscriber#: [id number] Group#: [id number] Precert#: -- Authorization#: [id number] Effective Date: -- TRANSPLANT [employer]LOBAL/[employer] Phone: -- Subscriber: David Serrano Subscriber#: [id number] Group#: -- Precert#: -- Authorization#: [id number] Effective Date: -- Diagnoses Present on Admission [...] Gelatein Plus- clear thickened, gelatin high protein ([facility] only) Regular Diet Services Required Retirement: vital signs, med management, lab draws Physical [...] scale: Blood glucose 150-199 mg/dL =1units, Blood kspvarr560-105 mg/dL =2 units, Blood glucose 250-299 mg/dL [...] Your Medications These medications were sent to [facility] [address] [place] [id number] Hours: Wednesday - Wednesday: 8:00AM - 6:00PM acetaminophen 325 MG tablet acyclovir 400 MG tablet alcohol swabs Padm blood-glucose meter Misc calcium-vitamin D 500 mg-5 mcg (200 unit) [...] Fax results to liver transplant clinic at [phone]. NURSE VISIT: Please check vitals and assess/monitor surgical incision every Wed/. Isolation Patient Isolation Status None to display [...] effort and are for medical reasons or sikh services or infrequently or short duration when for other reasons) due to deconditioning it would be a taxing effort to receive outpatient services. My signature below is to certify that this patient is under my care and that I, or nurse practitioner, or a physician financial planning assistant working with me, had a uurq-qy-hibt encounter with this is patient on: 10/22/2025 Follow-up Appointments and Post Hospital Discharge Physician Name Future Appointments Date Time Provider Department Center 10/30/2025 9:00 AM [facility] [address] [facility] [address] [id number] Discharging Physician Signature and Credentials Discharging Physician: Electronically signed by LAISHA HERNANDEZ 10/22/2025, 1:32 PM Physician to follow up Information PCP: PROVIDER NOT IN SYSTEM PCP address: None PCP phone number: None PCP fax number: None Follow-up: [facility] and their phone / fax is: [phone] / [phone] Environmental Planning Engineer and Credentials Provider/Company Name and Contact Number: [facility] at Discharge [facility] at Home post discharge: Home [facility] Name/Phone # post discharge: [facility] What[employer] Trending ([phone]) Home Health Services Types at Discharge: PT/OT/CUSTOMER EXPERIENCE ANALYST, Retirement ([facility] for lab draws.) Environmental Planning Engineer Name and Telephone Number: Citlaly Zimmerman RN/SAJAN [phone] [1] Allergies Allergen Reactions Lisinopril Other (See [...] to patients area and insurance. Kamlesh Sanchez Solar Thermal Installer Yarn Comber Care Management Services [phone] * Plan of Care - Evelyn Galindo [...] Bush RN - 10/18/2025 3:[address] [facility] Case Management/Social Work Department Progress Note [...] PCP: PROVIDER NOT IN SYSTEM Home Pharmacy: [facility] - TERRANCE Eng - [address] [address] [address] [place] [address] [facility] [address] [facility] [address] [facility] [address] [facility] [address] [facility] [address] [facility] [address] Medical Insurance Coverage: Payor: NANCY / Plan: [...] discharge planning needs. TAMIA BUSH RN Cell [phone] * Plan of Care - Angela Tamez [...] Patient will remain free of falls Goal: [place] Fall Precautions Outcome: Progressing Problem: Daily Care [...] pain management intervention. Outcome: Progressing Problem: Non-violent, pyn-spll-nzowwtlopyf restraints Description: Less restrictive alternative interventions will [...] protection of medical procedures, or protection of hospital medical biller access. Outcome: Progressing Problem: Knowledge Deficit Goal: [...] Patient will remain free of falls Goal: [place] Fall Precautions Outcome: Progressing Problem: Daily Care [...] pain management intervention. Outcome: Progressing Problem: Non-violent, bcc-phxy-pqhlsvwfkrf restraints Description: Less restrictive alternative interventions will [...] protection of medical procedures, or protection of hospital medical biller access. Outcome: Progressing Patient in bilateral soft [...] Priority Date/Time Associated Diagnosis Comments US DUPLEX [id number]-NQYCLN-JLWNAIT COMPLETE STAT 10/22/2025 10:24 AM EST US [...] Routine 10/18/2025 10:29 AM EST US DUPLEX [id number] COMPLETE STAT 10/18/2025 9:35 AM EST US [...] PM EST SURGICAL PATHOLOGY EXAM Routine 10/17/20 5:20 PM EST TRANSFUSE RED BLOOD CELLS [...] in this encounter Results * US Duplex Ukz-Wqc-Ewqgpal Comp (10/22/2025 10:24 AM EST) Anatomical Region [...] EXAM: US ABDOMEN COMPLETE EXAM: US DUPLEX FHN-JAKYIU-WNNEEDE COMPLETE INDICATION: Post-op liver transplant DATE: 10/22/2025 [...] EXAM: US ABDOMEN COMPLETE EXAM: US DUPLEX PUD-HTKDKV-LJGISJX COMPLETE INDICATION: Post-op liver transplant DATE: 10/22/2025 [...] EXAM: US ABDOMEN COMPLETE EXAM: US DUPLEX [id number]-KASNCHG COMPLETE INDICATION: Post-op liver transplant DATE: 10/22/2025 [...] EXAM: US ABDOMEN COMPLETE EXAM: US DUPLEX ZWJ-ZYCHSE-KSMWAFX COMPLETE INDICATION: Post-op liver transplant DATE: 10/22/2025 [...] 12:02 PM EST us Leticia Lomeli MD [facility] ORDERABLES Final Resul t * POC Glucose Monitoring Device (10/22/2025 10:23 AM EST) [facility] POC Glucose Monitoring Device 96 70 - 100 mg/dL 10/22/2025 10:24 AM EST [facility] Blood 10/22/2025 10:2 3 AM EST 10/22/2025 10:23 AM EST us Vani Winkler MD POINT OF CARE TEST ORDERABLE S Final Result [facility] [address] [id number], [facility] * Tacrolimus level (10/22/2025 9:48 AM EST) [facility] Tacrolimus (LC-MS) 4.0 3.0 - 15.0 ng/mL 10/22/2025 12:57 PM EST [facility] Comment:Performed via liquid chromatography tandem mass spectrometry. Detection limit: 1 ng/mL. Individual target concentrations may vary due to target organ and time after transplant. This test has been developed and its performance characteristics determined by [facility] which is certified under the [...] ORDERABLES Final Re sult Performing Organization Address [facility] Co de Phone Number [facility] [address] [place] [address]. [address] * Phosphorus (10/22/2025 5:28 AM EST) Phosphorus 2.3 2.1 - 4.7 mg/dL 10/22/2025 6:20 AM EST [facility] Plasma 10/22/2025 5:28 AM EST 10/22/2025 5:42 AM EST Aspen Parr MD LAB BLOOD ORDERABLES Final Resul t Performing Organization Address [facility] de Phone Number [facility] [address] [place] [address]. [address] * Magnesium (10/22/2025 5:28 AM EST) Magnesium 1.7 1.5 - 2.5 mg/dL 10/22/2025 6:20 AM EST [facility] Plasma 10/22/2025 5:28 AM EST 10/22/2025 5:42 AM EST Aspen Parr MD LAB BLOOD ORDERABLES Final Resul t Performing Organization Address [facility] Co de Phone Number [facility] [address] [place] [address]. [address] * (ABNORMAL) CBC (10/22/2025 5:28 AM EST) WBC 6.6 3.8 - 10.8 10E3/uL 10/22/2025 5:48 AM EST [facility] RBC 2.84(L) 4.20 - 5.80 10E6/uL 10/22/2025 5:48 AM EST [facility] Hemoglobin 9.3(L) 13.2 - 17.1 g/dL 10/22/2025 5:48 AM EST [facility] Hematocrit 26.4(L) 38.5 - 50.0 % 10/22/2025 5:48 AM EST [facility] MCV 92.8 80.0 - 100.0 fL 10/22/2025 5:48 AM EST [facility] MCH 32.8 27.0 - 33.0 pg 10/22/2025 5:48 AM EST [facility] MCHC 35.4 32.0 - 36.0 g/dL 10/22/2025 5:48 AM EST [facility] RDW 16.0(H) 11.0 - 15.0 % 10/22/2025 5:48 AM EST [facility] Platelets 22(L) 140 - 400 10E3/uL 10/22/2025 5:48 AM EST [facility] Comment: CNV Specimen checked for clots. None detected. MPV 9.1 7.5 - 11.5 fL 10/22/2025 5:48 AM EST [facility] Whole Blood 10/22/2025 5:28 AM EST 10/22/2025 5:42 AM EST us Aspen Parr MD LAB BLOOD ORDERABLES Final Resul t [facility] [address] * (ABNORMAL) Hepatic Function Panel (10/22/2025 5:28 AM EST) Total Bilirubin 1.0 0.0 - 1.5 mg/dL 10/22/2025 6:20 AM EST [facility] Bilirubin, Direct 0.28 0.00 - 0.40 mg/dL 10/22/2025 6:20 AM EST [facility] AST 42(H) 13 - 39 U/L 10/22/2025 6:20 AM EST [facility] ALT 270(H) 7 - 52 U/L 10/22/2025 6:20 AM EST [facility] Alkaline Phosphatase 84 36 - 125 U/L 10/22/2025 6:20 AM EST [facility] Total Protein 4.3(L) 6.4 - 8.9 g/dL 10/22/2025 6:20 AM EST [facility] Albumin 2.1(L) 3.5 - 5.7 g/dL 10/22/2025 6:20 AM EST [facility] Bilirubin, Indirect 0.72 0.00 - 1.10 mg/dL 10/22/2025 6:20 AM EST [facility] Plasma 10/22/2025 5:28 AM EST 10/22/2025 5:42 AM EST Aspen Parr MD LAB BLOOD ORDERABLES Final Resul t [facility] [address] * (ABNORMAL) Basic metabolic panel (10/22/2025 5:28 AM EST) Sodium 138 133 - 146 mmol/L 10/22/2025 6:20 AM EST [facility] Potassium 3.2(L) 3.5 - 5.3 mmol/L 10/22/2025 6:20 AM [facility] Chloride 107 98 - 110 mmol/L 10/22/2025 6:20 AM [facility] CO2 25 21 - 33 mmol/L 10/22/2025 6:20 AM [facility] Comment:High lactate dehydro genase concentrations in patient samples may cause falsely increased bicarbonate results. If markedly elevated LDH is observed or suspected, please assess results in conjunction with patient`s clinical presentation. In cases of discrepant results, consider evaluating CO2 in with a blood gas order. Anion Gap 6 3 - 16 mmol/L 10/22/2025 6:20 AM EST [facility] BUN 25 7 - 25 mg/dL 10/22/2025 6:20 AM EST [facility] Creatinine 0.81 0.60 - 1.30 mg/dL 10/22/2025 6:20 AM EST [facility] Glucose 100 70 - 100 mg/dL 10/22/2025 6:20 AM EST [facility] Calcium 6.8(L) 8.6 - 10.3 mg/dL 10/22/2025 6:20 AM EST [facility] Osmolality, Calculated 290 278 - 305 mOsm/kg 10/22/2025 6:20 AM EST [facility] EGFR >90 10/22/2025 6:20 AM EST [facility] Comment: As of 2022, [...] BLOOD ORDERABLES Final Resul t [facility] [address] [place], [place] [address] * (ABNORMAL) POC Glucose Monitoring Device (10/21/2025 4:31 PM EST) POC Glucose Monitoring Device 230(H) 70 - 100 mg/dL 10/21/2025 4:32 PM EST [facility] Blood 10/21/2025 4:31 PM EST 10/21/2025 4:32 PM EST Result [facility] Vani Winkler MD POINT OF CARE TEST ORDERABLE S Final Result Performing Organization Address [facility] Co de Phone Number [address] * (ABNORMAL) POC Glucose Monitoring Device (10/21/2025 12:27 PM EST) POC Glucose Monitoring Device 181(H) 70 - 100 mg/dL 10/21/2025 12:27 PM EST [facility] Blood 10/21/2025 12:2 7 PM EST 10/21/2025 12:27 PM EST Result [facility] Vani Winkler MD POINT OF CARE TEST ORDERABLE S Final Result Performing Organization Address [facility] de Phone Number [facility] [address] [place] [address]. [address] * Tacrolimus level (10/21/2025 8:30 AM EST) Tacrolimus (LC-MS) 6.9 3.0 - 15.0 ng/mL 10/21/2025 3:07 PM EST [facility] Comment:Performed via liquid chromatography tandem mass spectrometry. Detection limit: 1 ng/mL. Individual target concentrations may vary due to target organ and time after transplant. This test has been developed and its performance characteristics determined by [facility] which is certified under the [...] 8:30 AM EST 10/21/2025 8:35 AM EST Result [facility] Leticia Lomeli MD LAB BLOOD ORDERABLES Final Re sult Performing Organization Address [facility]/ZIP Co de Phone Number [facility] [address] [facility]. [address] * (ABNORMAL) POC Glucose Monitoring Device (10/21/2025 8:18 AM EST) POC Glucose Monitoring Device 112(H) 70 - 100 mg/dL 10/21/2025 8:28 AM EST [facility] Blood 10/21/2025 8:18 AM EST 10/21/2025 8:28 AM EST us Vani Winkler MD POINT OF CARE TEST ORDERABLE S Final Result Performing Organization Address City/[facility] Co de Phone Number [facility] [address] * (ABNORMAL) Hepatic Function Panel (10/21/2025 6:35 AM EST) Total Bilirubin 0.9 0.0 - 1.5 mg/dL 10/21/2025 7:45 AM EST [facility] Bilirubin, Direct 0.41(H) 0.00 - 0.40 mg/dL 10/21/2025 7:45 AM EST [facility] AST 64(H) 13 - 39 U/L 10/21/2025 7:45 AM EST [facility] ALT 389(H) 7 - 52 U/L 10/21/2025 7:45 AM EST [facility] Alkaline Phosphatase 83 36 - 125 U/L 10/21/2025 7:45 AM EST [facility] Total Protein 4.3(L) 6.4 - 8.9 g/dL 10/21/2025 7:45 AM EST [facility] Albumin 2.2(L) 3.5 - 5.7 g/dL 10/21/2025 7:45 AM EST [facility] Bilirubin, Indirect 0.49 0.00 - 1.10 mg/dL 10/21/2025 7:45 AM EST [facility] Plasma 10/21/2025 6:35 AM EST 10/21/2025 6:58 AM EST us Aspen Parr MD LAB BLOOD ORDERABLES Final Resul t [facility] [address] [facility]. [address] * Magnesium (10/21/2025 6:35 AM EST) Magnesium 2.0 1.5 - 2.5 mg/dL 10/21/2025 7:45 AM EST [facility] Plasma 10/21/2025 6:35 AM EST 10/21/2025 6:58 AM EST Aspen Parr MD LAB BLOOD ORDERABLES Final Resul t Performing Organization Address [facility] Co de Phone Number [facility] [address] [facility]. [address] * (ABNORMAL) Renal Function Panel w/EGFR (10/21/2025 6:35 AM EST) Sodium 139 133 - 146 mmol/L 10/21/2025 7:45 AM EST [facility] Potassium 3.5 3.5 - 5.3 mmol/L 10/21/2025 7:45 AM EST [facility] Chloride 108 98 - 110 mmol/L 10/21/2025 7:45 AM EST [facility] CO2 26 21 - 33 mmol/L 10/21/2025 7:45 AM EST [facility] Comment:High lactate dehydro genase concentrations in patient samples may cause falsely increased bicarbonate results. If markedly elevated LDH is observed or suspected, please assess results in conjunction with patient`s clinical presentation. In cases of discrepant results, consider evaluating CO2 in with a blood gas order. Anion Gap 5 3 - 16 mmol/L 10/21/2025 7:45 AM EST [facility] BUN 39(H) 7 - 25 mg/dL 10/21/2025 7:45 AM EST [facility] Creatinine 0.96 0.60 - 1.30 mg/dL 10/21/2025 7:45 AM EST [facility] Glucose 126(H) 70 - 100 mg/dL 10/21/2025 7:45 AM EST [facility] Calcium 6.8(L) 8.6 - 10.3 mg/dL 10/21/2025 7:45 AM EST [facility] Phosphorus 2.8 2.1 - 4.7 mg/dL 10/21/2025 7:45 AM EST [facility] Albumin 2.2(L) 3.5 - 5.7 g/dL 10/21/2025 7:45 AM EST [facility] Osmolality, Calculated 299 278 - 305 mOsm/kg 10/21/2025 7:45 AM EST [facility] EGFR 88 10/21/2025 7:45 AM EST [facility] Comment:As of 2022, the estimated GFR [...] ORDERABLES Final Resul t Performing Organization Address City/State/[facility] Co de Phone Number [facility] [address] [place] [address] * (ABNORMAL) CBC (10/21/2025 6:35 AM EST) WBC 8.4 3.8 - 10.8 10E3/uL 10/21/2025 7:55 AM EST [facility] RBC 2.68(L) 4.20 - 5.80 10E6/uL 10/21/2025 7:55 AM EST [facility] Hemoglobin 8.9(L) 13.2 - 17.1 g/dL 10/21/2025 7:55 AM EST [facility] Hematocrit 24.8(L) 38.5 - 50.0 % 10/21/2025 7:55 AM EST [facility] MCV 92.6 80.0 - 100.0 fL 10/21/2025 7:55 AM EST [facility] MCH 33.3(H) 27.0 - 33.0 pg 10/21/2025 7:55 AM EST [facility] MCHC 36.0 32.0 - 36.0 g/dL 10/21/2025 7:55 AM EST [facility] RDW 16.9(H) 11.0 - 15.0 % 10/21/2025 7:55 AM EST [facility] Platelets 20(L) 140 - 400 10E3/uL 10/21/2025 7:55 AM EST [facility] Comment: CNV Specimen checked for clots. None detected. MPV 8.5 7.5 - 11.5 fL 10/21/2025 7:55 AM EST [facility] Whole Blood 10/21/2025 6:35 AM EST 10/21/2025 6:58 AM EST us Aspen Parr MD LAB BLOOD ORDERABLES Final Resul t Performing Organization Address City/[facility]/ZIP Co de Phone Number [facility] [address] * (ABNORMAL) POC Glucose Monitoring Device (10/20/2025 5:17 PM EST) POC Glucose Monitoring Device 195(H) 70 - 100 mg/dL 10/20/2025 5:18 PM EST [facility] Blood 10/20/2025 5:17 PM EST 10/20/2025 5:18 PM EST Vani Winkler MD POINT OF CARE TEST ORDERABLE S Final Result [facility] [address] * (ABNORMAL) POC Glucose Monitoring Device (10/20/2025 2:24 PM EST) POC Glucose Monitoring Device 205(H) 70 - 100 mg/dL 10/20/2025 2:24 PM EST [facility] Blood 10/20/2025 2:24 PM EST 10/20/2025 2:24 PM EST Vani Winkler MD POINT OF CARE TEST ORDERABLE S Final Result Performing Organization Address [facility] Co de Phone Number [facility] [address] [place] [address] * Tacrolimus level (10/20/2025 10:31 AM EST) Tacrolimus (LC-MS) 7.9 3.0 - 15.0 ng/mL 10/20/2025 2:25 PM EST [facility] Comment:Performed via liquid chromatography tandem mass spectrometry. Detection limit: 1 ng/mL. Individual target concentrations may vary due to target organ and time after transplant. This test has been developed and its performance characteristics determined by [facility] which is certified under the [...] ORDERABLES Final Re sult Performing Organization Address City/[facility]/ZIP Co de Phone Number [facility] [address] [facility]. [address] * (ABNORMAL) POC Glucose Monitoring Device (10/20/2025 9:24 AM EST) POC Glucose Monitoring Device 227(H) 70 - 100 mg/dL 10/20/2025 9:25 AM EST [facility] Blood 10/20/2025 9:24 AM EST 10/20/2025 9:25 AM EST Vani Winkler MD POINT OF CARE TEST ORDERABLE S Final Result [facility] [address] [facility]. [address] * Magnesium (10/20/2025 5:31 AM EST) Magnesium 2.1 1.5 - 2.5 mg/dL 10/20/2025 7:35 AM EST [facility] Plasma 10/20/2025 5:31 AM EST 10/20/2025 5:42 AM EST us Aspen Parr MD LAB BLOOD ORDERABLES Final Resul t [facility] [address] * (ABNORMAL) Hepatic Function Panel (10/20/2025 5:31 AM EST) Total Bilirubin 0.9 0.0 - 1.5 mg/dL 10/20/2025 7:35 AM EST [facility] Bilirubin, Direct 0.43(H) 0.00 - 0.40 mg/dL 10/20/2025 7:35 AM EST [facility] AST 161(H) 13 - 39 U/L 10/20/2025 7:35 AM EST [facility] ALT 532(H) 7 - 52 U/L 10/20/2025 7:35 AM EST [facility] Alkaline Phosphatase 67 36 - 125 U/L 10/20/2025 7:35 AM EST [facility] Total Protein 4.2(L) 6.4 - 8.9 g/dL 10/20/2025 7:35 AM EST [facility] Albumin 2.2(L) 3.5 - 5.7 g/dL 10/20/2025 7:35 AM EST [facility] Bilirubin, Indirect 0.47 0.00 - 1.10 mg/dL 10/20/2025 7:35 AM EST [facility] Plasma 10/20/2025 5:31 AM EST 10/20/2025 5:42 AM EST us Aspen Parr MD LAB BLOOD ORDERABLES Final Resul t [facility] [address] [place] [address], [facility] * (ABNORMAL) Renal Function Panel w/EGFR (10/20/2025 5:31 AM EST) Sodium 142 133 - 146 mmol/L 10/20/2025 7:23 AM EST [facility] Potassium 3.8 3.5 - 5.3 mmol/L 10/20/2025 7:23 AM EST [facility] Chloride 111(H) 98 - 110 mmol/L 10/20/2025 7:23 AM EST [facility] CO2 25 21 - 33 mmol/L 10/20/2025 7:23 AM EST [facility] Comment:High lactate dehydro genase concentrations in patient samples may cause falsely increased bicarbonate results. If markedly elevated LDH is observed or suspected, please assess results in conjunction with patient`s clinical presentation. In cases of discrepant results, consider evaluating CO2 in with a blood gas order. Anion Gap 6 3 - 16 mmol/L 10/20/2025 7:23 AM EST [facility] BUN 47(H) 7 - 25 mg/dL 10/20/2025 7:23 AM EST [facility] Creatinine 1.15 0.60 - 1.30 mg/dL 10/20/2025 7:23 AM EST [facility] Glucose 198(H) 70 - 100 mg/dL 10/20/2025 7:23 AM EST [facility] Calcium 6.8(L) 8.6 - 10.3 mg/dL 10/20/2025 7:23 AM EST [facility] Phosphorus 4.8(H) 2.1 - 4.7 mg/dL 10/20/2025 7:35 AM EST [facility] Albumin 2.2(L) 3.5 - 5.7 g/dL 10/20/2025 7:35 AM EST [facility] Osmolality, Calculated 312(H) 278 - 305 mOsm/kg 10/20/2025 7:23 AM EST [facility] EGFR 71 10/20/2025 7:23 AM [facility] Comment:As of 2022, the estimated [...] ORDERABLES Final Resul t Performing Organization Address City/State/[facility] Co de Phone Number [facility] [address] * (ABNORMAL) CBC (10/20/2025 5:31 AM EST) WBC 6.1 3.8 - 10.8 10E3/uL 10/20/2025 6:18 AM EST [facility] RBC 2.64(L) 4.20 - 5.80 10E6/uL 10/20/2025 6:18 AM EST [facility] Hemoglobin 8.5(L) 13.2 - 17.1 g/dL 10/20/2025 6:18 AM EST [facility] Hematocrit 24.6(L) 38.5 - 50.0 % 10/20/2025 6:18 AM EST [facility] MCV 93.2 80.0 - 100.0 fL 10/20/2025 6:18 AM EST [facility] MCH 32.2 27.0 - 33.0 pg 10/20/2025 6:18 AM EST [facility] MCHC 34.6 32.0 - 36.0 g/dL 10/20/2025 6:18 AM EST [facility] RDW 17.4(H) 11.0 - 15.0 % 10/20/2025 6:18 AM EST [facility] Platelets 17(LL) 140 - 400 10E3/uL 10/20/2025 6:18 AM EST [facility] Comment: Results verified by repeat analysis. Critical Result PLT:17 Called to and read back by ALEKSANDR SMITH RN at: 10/20/2025 06:18:19 by:DEJON ARREGUINV 8.4 7.5 - 11.5 fL 10/20/2025 6:18 AM EST [facility] Whole Blood 10/20/2025 5:31 AM EST 10/20/2025 5:42 AM EST us Aspen Parr MD LAB BLOOD ORDERABLES Final Resul t [facility] [address] [facility]. [address] * (ABNORMAL) POC Glucose Monitoring Device (10/20/2025 5:30 AM EST) POC Glucose Monitoring Device 208(H) 70 - 100 mg/dL 10/20/2025 5:31 AM EST [facility] Blood 10/20/2025 5:30 AM EST 10/20/2025 5:31 AM EST us Vani Winkler MD POINT OF CARE TEST ORDERABLE S Final Result Performing Organization Address City/[facility]/ZIP Co de Phone Number [facility] [address] [facility]. [address] * (ABNORMAL) Protime-INR (10/19/2025 11:03 PM EST) Protime 18.2(H) 12.1 - 15.1 seconds 10/19/2025 11:27 PM EST [facility] INR 1.4(H) 0.9 - 1.1 10/19/2025 11:27 PM EST [facility] Comment: RECOMMENDED THERAPEUTIC RANGES USING INR : Stable oral anticoagulant therapy: 2.0 - 3.0 Mechanical prosthetic heart valve: 2.5 - 3.5 Recurrent acute myocardial infarction: 2.5 - 3.5 Plasma 10/19/2025 11:0 3 PM EST 10/19/2025 11:07 PM EST Aspen Parr MD LAB BLOOD ORDERABLES Final Resul t [facility] [address] [facility]. [address] * Magnesium (10/19/2025 11:03 PM EST) Magnesium 2.1 1.5 - 2.5 mg/dL 10/19/2025 11:45 PM EST [facility] Plasma 10/19/2025 11:0 3 PM EST 10/19/2025 11:07 PM EST us Aspen Parr MD LAB BLOOD ORDERABLES Final Resul t Performing Organization Address City/[facility] Co de Phone Number [facility] [address] [facility]. [address] * (ABNORMAL) Hepatic Function Panel (10/19/2025 11:03 PM EST) Total Bilirubin 1.0 0.0 - 1.5 mg/dL 10/19/2025 11:45 PM EST [facility] Bilirubin, Direct 0.48(H) 0.00 - 0.40 mg/dL 10/19/2025 11:45 PM EST [facility] AST 223(H) 13 - 39 U/L 10/19/2025 11:45 PM EST [facility] ALT 569(H) 7 - 52 U/L 10/19/2025 11:45 PM EST [facility] Alkaline Phosphatase 68 36 - 125 U/L 10/19/2025 11:45 PM EST [facility] Total Protein 4.4(L) 6.4 - 8.9 g/dL 10/19/2025 11:45 PM EST [facility] Albumin 2.2(L) 3.5 - 5.7 g/dL 10/19/2025 11:45 PM EST [facility] Bilirubin, Indirect 0.52 0.00 - 1.10 mg/dL 10/19/2025 11:45 PM EST [facility] Plasma 10/19/2025 11:0 3 PM EST 10/19/2025 11:07 PM EST us Aspen Parr MD LAB BLOOD ORDERABLES Final Resul t [facility] [address] [place] [id number], [facility] * (ABNORMAL) Renal Function Panel w/EGFR (10/19/2025 11:03 PM EST) Sodium 144 133 - 146 mmol/L 10/19/2025 11:33 PM EST [facility] Potassium 3.6 3.5 - 5.3 mmol/L 10/19/2025 11:33 PM [facility] Chloride 110 98 - 110 mmol/L 10/19/2025 11:33 PM [facility] CO2 25 21 - 33 mmol/L 10/19/2025 11:33 PM [facility] Comment:High lactate dehydro genase concentrations in patient samples may cause falsely increased bicarbonate results. If markedly elevated LDH is observed or suspected, please assess results in conjunction with patient`s clinical presentation. In cases of discrepant results, consider evaluating CO2 in with a blood gas order. Anion Gap 9 3 - 16 mmol/L 10/19/2025 11:33 PM [facility] BUN 46(H) 7 - 25 mg/dL 10/19/2025 11:33 PM [facility] Creatinine 1.24 0.60 - 1.30 mg/dL 10/19/2025 11:33 PM [facility] Glucose 184(H) 70 - 100 mg/dL 10/19/2025 11:33 PM [facility] Calcium 7.1(L) 8.6 - 10.3 mg/dL 10/19/2025 11:33 PM [facility] Phosphorus 4.9(H) 2.1 - 4.7 mg/dL 10/19/2025 11:45 PM [facility] Albumin 2.2(L) 3.5 - 5.7 g/dL 10/19/2025 11:45 PM [facility] Osmolality, Calculated 315(H) 278 - 305 mOsm/kg 10/19/2025 11:33 PM [facility] EGFR 65 10/19/2025 11:33 PM EST [facility] Comment:As of 2022, the estimated GFR [...] BLOOD ORDERABLES Final Resul t [facility] [address] [place] [address], [facility] * (ABNORMAL) CBC (10/19/2025 11:03 PM EST) WBC 7.0 3.8 - 10.8 10E3/uL 10/19/2025 11:20 PM EST [facility] RBC 2.77(L) 4.20 - 5.80 10E6/uL 10/19/2025 11:20 PM EST [facility] Hemoglobin 8.9(L) 13.2 - 17.1 g/dL 10/19/2025 11:20 PM EST [facility] Hematocrit 25.8(L) 38.5 - 50.0 % 10/19/2025 11:20 PM EST [facility] MCV 93.2 80.0 - 100.0 fL 10/19/2025 11:20 PM EST [facility] MCH 32.2 27.0 - 33.0 pg 10/19/2025 11:20 PM EST [facility] MCHC 34.5 32.0 - 36.0 g/dL 10/19/2025 11:20 PM EST [facility] RDW 18.1(H) 11.0 - 15.0 % 10/19/2025 11:20 PM EST [facility] Platelets 20(L) 140 - 400 10E3/uL 10/19/2025 11:20 PM EST [facility] Comment:CNV MPV 8.0 7.5 - 11.5 fL 10/19/2025 11:20 PM EST [facility] Whole Blood 10/19/2025 11:0 3 PM EST 10/19/2025 11:07 PM EST Aspen Parr MD LAB BLOOD ORDERABLES Final Resul t [facility] [address] * (ABNORMAL) POC Glucose Monitoring Device (10/19/2025 11:02 PM EST) POC Glucose Monitoring Device 185(H) 70 - 100 mg/dL 10/19/2025 11:03 PM EST [facility] Blood 10/19/2025 11:0 2 PM EST 10/19/2025 11:03 PM EST us Vani Winkler MD POINT OF CARE TEST ORDERABLE S Final Result Performing Organization Address City/[facility]/ZIP Co de Phone Number [facility] [address] [facility]. [address] * (ABNORMAL) POC Glucose Monitoring Device (10/19/2025 5:24 PM EST) POC Glucose Monitoring Device 166(H) 70 - 100 mg/dL 10/19/2025 5:35 PM EST [facility] Blood 10/19/2025 5:24 PM EST 10/19/2025 5:35 PM EST Vani Winkler MD POINT OF CARE TEST ORDERABLE S Final Result [facility] [address] [facility]. [address] * (ABNORMAL) POC Glucose Monitoring Device (10/19/2025 12:26 PM EST) POC Glucose Monitoring Device 156(H) 70 - 100 mg/dL 10/19/2025 12:27 PM EST [facility] Blood 10/19/2025 12:2 6 PM EST 10/19/2025 12:27 PM EST Vani Winkler MD POINT OF CARE TEST ORDERABLE S Final Result [facility] [address] [place] [address]. [address] * (ABNORMAL) POC Glucose Monitoring Device (10/19/2025 9:51 AM EST) POC Glucose Monitoring Device 110(H) 70 - 100 mg/dL 10/19/2025 9:52 AM EST [facility] Blood 10/19/2025 9:51 AM EST 10/19/2025 9:52 AM EST Vani Winkler MD POINT OF CARE TEST ORDERABLE S Final Result [facility] [address] [facility]. [address] * (ABNORMAL) Tacrolimus level (10/19/2025 8:29 AM EST) Tacrolimus (LC-MS) 2.1(L) 3.0 - 15.0 ng/mL 10/19/2025 3:06 PM EST [facility] Comment:Performed via liquid chromatography tandem mass spectrometry. Detection limit: 1 ng/mL. Individual target concentrations may vary due to target organ and time after transplant. This test has been developed and its performance characteristics determined by [facility] which is certified under the [...] ORDERABLES Final Re sult Performing Organization Address [facility] Co de Phone Number [facility] [address] [place] [address]. [address] * (ABNORMAL) Protime-INR (10/19/2025 8:29 AM EST) Protime 19.1(H) 12.1 - 15.1 seconds 10/19/2025 9:09 AM EST [facility] INR 1.5(H) 0.9 - 1.1 10/19/2025 9:09 AM EST [facility] Comment: RECOMMENDED THERAPEUTIC RANGES USING INR : Stable oral anticoagulant therapy: 2.0 - 3.0 Mechanical prosthetic heart valve: 2.5 - 3.5 Recurrent acute myocardial infarction: 2.5 - 3.5 Plasma 10/19/2025 8:29 AM EST 10/19/2025 8:33 AM EST Aspen Parr MD LAB BLOOD ORDERABLES Final Resul t Performing Organization Address [facility] de Phone Number [facility] [address] [place] [address]. [address] * Magnesium (10/19/2025 8:29 AM EST) Magnesium 2.0 1.5 - 2.5 mg/dL 10/19/2025 9:28 AM EST [facility] Plasma 10/19/2025 8:29 AM EST 10/19/2025 8:33 AM EST Aspen Parr MD LAB BLOOD ORDERABLES Final Resul t Performing Organization Address [facility] Co de Phone Number [facility] [address] [place] [address]. [address] * (ABNORMAL) Hepatic Function Panel (10/19/2025 8:29 AM EST) Total Bilirubin 1.0 0.0 - 1.5 mg/dL 10/19/2025 9:28 AM EST [facility] Bilirubin, Direct 0.44(H) 0.00 - 0.40 mg/dL 10/19/2025 9:28 AM EST [facility] AST 450(H) 13 - 39 U/L 10/19/2025 9:28 AM EST [facility] ALT 725(H) 7 - 52 U/L 10/19/2025 9:28 AM EST [facility] Alkaline Phosphatase 65 36 - 125 U/L 10/19/2025 9:28 AM EST [facility] Total Protein 4.4(L) 6.4 - 8.9 g/dL 10/19/2025 9:28 AM EST [facility] Albumin 2.2(L) 3.5 - 5.7 g/dL 10/19/2025 9:28 AM EST [facility] Bilirubin, Indirect 0.56 0.00 - 1.10 mg/dL 10/19/2025 9:28 AM EST [facility] Plasma 10/19/2025 8:29 AM EST 10/19/2025 8:33 AM EST us Aspen Parr MD LAB BLOOD ORDERABLES Final Resul t Performing Organization Address City/State/[facility] Co de Phone Number [facility] [address] * (ABNORMAL) Renal Function Panel w/EGFR (10/19/2025 8:29 AM EST) Sodium 145 133 - 146 mmol/L 10/19/2025 9:09 AM EST [facility] Potassium 3.6 3.5 - 5.3 mmol/L 10/19/2025 9:09 AM EST [facility] Chloride 113(H) 98 - 110 mmol/L 10/19/2025 9:09 AM EST [facility] CO2 25 21 - 33 mmol/L 10/19/2025 9:09 AM EST [facility] Comment:High lactate dehydro genase concentrations in patient samples may cause falsely increased bicarbonate results. If markedly elevated LDH is observed or suspected, please assess results in conjunction with patient`s clinical presentation. In cases of discrepant results, consider evaluating CO2 in with a blood gas order. Anion Gap 7 3 - 16 mmol/L 10/19/2025 9:09 AM EST [facility] BUN 38(H) 7 - 25 mg/dL 10/19/2025 9:09 AM EST [facility] Creatinine 1.16 0.60 - 1.30 mg/dL 10/19/2025 9:09 AM [facility] Glucose 129(H) 70 - 100 mg/dL 10/19/2025 9:09 AM EST [facility] Calcium 7.2(L) 8.6 - 10.3 mg/dL 10/19/2025 9:09 AM EST [facility] Phosphorus 4.0 2.1 - 4.7 mg/dL 10/19/2025 9:28 AM [facility] Albumin 2.2(L) 3.5 - 5.7 g/dL 10/19/2025 9:28 AM [facility] Osmolality, Calculated 311(H) 278 - 305 mOsm/kg 10/19/2025 9:09 AM EST [facility] EGFR 70 10/19/2025 9:09 AM EST [facility] Comment:As of 2022, the estimated GFR is calculated using the 2020 Chronic Kidney Disease Epidemiology Collaboration (CKD-EPI) equation. In line with the NKF-ASN Task Force Recommendations, this equation does not include a coefficient for race. A single eGFR value is calculated for each patient. The reference interval is >60 mL/min/1.73m2. eGFR values greater than 90 will be reported as >90mL/min/1.73m2. Reference: Stephenson C, Kathy M, Rebecca [place], Josue [place], [place], Nazia [place], et al. A Unifying Approach for GFR Estimation: Recommendations of the NKF-ASN Task Force on Reassessing the inclusion of Race in Diagnosing Kidney Disease. Am J Kidney Dis. 2020. Plasma 10/19/2025 8:29 AM EST 10/19/2025 8:33 AM EST us Aspen Parr MD LAB BLOOD ORDERABLES Final Resul t [facility] [address] * (ABNORMAL) CBC (10/19/2025 8:29 AM EST) WBC 9.8 3.8 - 10.8 10E3/uL 10/19/2025 9:06 AM EST [facility] RBC 2.90(L) 4.20 - 5.80 10E6/uL 10/19/2025 9:06 AM [facility] Hemoglobin 9.6(L) 13.2 - 17.1 g/dL 10/19/2025 9:06 AM [facility] Hematocrit 26.8(L) 38.5 - 50.0 % 10/19/2025 9:06 AM [facility] MCV 92.4 80.0 - 100.0 fL 10/19/2025 9:06 AM [facility] MCH 33.2(H) 27.0 - 33.0 pg 10/19/2025 9:06 AM [facility] MCHC 36.0 32.0 - 36.0 g/dL 10/19/2025 9:06 AM [facility] RDW 18.5(H) 11.0 - 15.0 % 10/19/2025 9:06 AM [facility] Platelets 22(L) 140 - 400 10E3/uL 10/19/2025 9:06 AM [facility] Comment: CNV Specimen checked for clots. None detected. MPV 8.5 7.5 - 11.5 fL 10/19/2025 9:06 AM [facility] Whole Blood 10/19/2025 8:29 AM EST 10/19/2025 8:33 AM EST Aspen Parr MD LAB BLOOD ORDERABLES Final Resul t [facility] [address] * (ABNORMAL) POC Glucose Monitoring Device (10/19/2025 8:28 AM EST) POC Glucose Monitoring Device 122(H) 70 - 100 mg/dL 10/19/2025 8:39 AM EST [facility] Blood 10/19/2025 8:28 AM EST 10/19/2025 8:38 AM EST Vani Winkler MD POINT OF CARE TEST ORDERABLE S Final Result [facility] [address] [facility] * (ABNORMAL) POC Glucose Monitoring Device (10/19/2025 7:07 AM EST) POC Glucose Monitoring Device 136(H) 70 - 100 mg/dL 10/19/2025 7:08 AM EST [facility] Blood 10/19/2025 7:07 AM EST 10/19/2025 7:08 AM EST Vani Winkler MD POINT OF CARE TEST ORDERABLE S Final Result Performing Organization Address [facility] Co de Phone Number [facility] [address] [facility]. [address] * (ABNORMAL) POC Glucose Monitoring Device (10/19/2025 6:28 AM EST) POC Glucose Monitoring Device 109(H) 70 - 100 mg/dL 10/19/2025 6:29 AM EST [facility] Blood 10/19/2025 6:28 AM EST 10/19/2025 6:29 AM EST Vani Winkler MD POINT OF CARE TEST ORDERABLE S Final Result Performing Organization Address City/[facility]/ZIP Co de Phone Number [facility] [address] [facility]. [address] * (ABNORMAL) POC Glucose Monitoring Device (10/19/2025 6:10 AM EST) POC Glucose Monitoring Device 108(H) 70 - 100 mg/dL 10/19/2025 6:12 AM EST [facility] Blood 10/19/2025 6:10 AM EST 10/19/2025 6:11 AM EST Vani Winkler MD POINT OF CARE TEST ORDERABLE S Final Result Performing Organization Address City/[facility]/ZIP Co de Phone Number [facility] [address] [facility]. [address] * (ABNORMAL) POC Glucose Monitoring Device (10/19/2025 4:06 AM EST) POC Glucose Monitoring Device 115(H) 70 - 100 mg/dL 10/19/2025 4:07 AM EST [facility] Blood 10/19/2025 4:06 AM EST 10/19/2025 4:07 AM EST Vani Winkler MD POINT OF CARE TEST ORDERABLE S Final Result Performing Organization Address [facility] Co de Phone Number [facility] [address] [facility]. [address] * (ABNORMAL) POC Glucose Monitoring Device (10/19/2025 2:04 AM EST) POC Glucose Monitoring Device 129(H) 70 - 100 mg/dL 10/19/2025 2:06 AM EST [facility] Blood 10/19/2025 2:04 AM EST 10/19/2025 2:05 AM EST Vani Winkler MD POINT OF CARE TEST ORDERABLE S Final Result Performing Organization Address City/[facility]/ZIP Co de Phone Number [facility] [address] [facility]. [address] * (ABNORMAL) POC Glucose Monitoring Device (10/18/2025 11:57 PM EST) POC Glucose Monitoring Device 131(H) 70 - 100 mg/dL 10/18/2025 11:58 PM EST [facility] Blood 10/18/2025 11:5 7 PM EST 10/18/2025 11:58 PM EST Vani Winkler MD POINT OF CARE TEST ORDERABLE S Final Result Performing Organization Address [facility] Co de Phone Number [facility] [address] [facility]. [address] * Lactic Acid (10/18/2025 10:20 PM EST) Lactate 0.8 0.5 - 2.2 mmol/L 10/18/2025 11:03 PM EST [facility] Plasma 10/18/2025 10:2 0 PM EST 10/18/2025 10:26 PM EST Aspen Parr MD LAB BLOOD ORDERABLES Final Resul t Performing Organization Address [facility] Co de Phone Number [facility] [address] [facility]. [address] * Magnesium (10/18/2025 10:20 PM EST) Magnesium 1.8 1.5 - 2.5 mg/dL 10/18/2025 11:18 PM EST [facility] Plasma 10/18/2025 10:2 0 PM EST 10/18/2025 10:26 PM EST Aspen Parr MD LAB BLOOD ORDERABLES Final Resul t Performing Organization Address [facility] Co de Phone Number [facility] [address] [facility]. [address] * (ABNORMAL) Hepatic Function Panel (10/18/2025 10:20 PM EST) Total Bilirubin 1.0 0.0 - 1.5 mg/dL 10/18/2025 11:18 PM EST [facility] Bilirubin, Direct 0.51(H) 0.00 - 0.40 mg/dL 10/18/2025 11:18 PM EST [facility] AST 717(H) 13 - 39 U/L 10/18/2025 11:18 PM EST [facility] ALT 792(H) 7 - 52 U/L 10/18/2025 11:18 PM EST [facility] Alkaline Phosphatase 62 36 - 125 U/L 10/18/2025 11:18 PM EST [facility] Total Protein 4.3(L) 6.4 - 8.9 g/dL 10/18/2025 11:18 PM EST [facility] Albumin 2.1(L) 3.5 - 5.7 g/dL 10/18/2025 11:18 PM EST [facility] Bilirubin, Indirect 0.49 0.00 - 1.10 mg/dL 10/18/2025 11:18 PM EST [facility] Plasma 10/18/2025 10:2 0 PM EST 10/18/2025 10:26 PM EST us Aspen Parr MD LAB BLOOD ORDERABLES Final Resul t [facility] [address] * (ABNORMAL) Renal Function Panel w/EGFR (10/18/2025 10:20 PM EST) Sodium 146 133 - 146 mmol/L 10/18/2025 11:05 PM [facility] Potassium 3.1(L) 3.5 - 5.3 mmol/L 10/18/2025 11:05 PM [facility] Chloride 113(H) 98 - 110 mmol/L 10/18/2025 11:05 PM [facility] CO2 24 21 - 33 mmol/L 10/18/2025 11:05 PM [facility] Comment:High lactate dehydro genase concentrations in patient samples may cause falsely increased bicarbonate results. If markedly elevated LDH is observed or suspected, please assess results in conjunction with patient`s clinical presentation. In cases of discrepant results, consider evaluating CO2 in with a blood gas order. Anion Gap 9 3 - 16 mmol/L 10/18/2025 11:05 PM [facility] BUN 32(H) 7 - 25 mg/dL 10/18/2025 11:05 PM [facility] Creatinine 1.09 0.60 - 1.30 mg/dL 10/18/2025 11:05 PM [facility] Glucose 129(H) 70 - 100 mg/dL 10/18/2025 11:05 PM EST [facility] Calcium 7.4(L) 8.6 - 10.3 mg/dL 10/18/2025 11:05 PM EST [facility] Phosphorus 4.0 2.1 - 4.7 mg/dL 10/18/2025 11:18 PM EST [facility] Albumin 2.1(L) 3.5 - 5.7 g/dL 10/18/2025 11:18 PM EST [facility] Osmolality, Calculated 311(H) 278 - 305 mOsm/kg 10/18/2025 11:05 PM EST [facility] EGFR 76 10/18/2025 11:05 PM EST [facility] Comment:As of 2022, the estimated GFR [...] BLOOD ORDERABLES Final Resul t [facility] [address] [place] [address], [facility] * (ABNORMAL) Protime-INR (10/18/2025 10:20 PM EST) Protime 21.9(H) 12.1 - 15.1 seconds 10/18/2025 10:52 PM EST [facility] INR 1.8(H) 0.9 - 1.1 10/18/2025 10:52 PM EST [facility] Comment: RECOMMENDED THERAPEUTIC RANGES USING INR : Stable oral anticoagulant therapy: 2.0 - 3.0 Mechanical prosthetic heart valve: 2.5 - 3.5 Recurrent acute myocardial infarction: 2.5 - 3.5 Plasma 10/18/2025 10:2 0 PM EST 10/18/2025 10:26 PM EST us Aspen Parr MD LAB BLOOD ORDERABLES Final Resul t [facility] [address] [place] [address], [facility] * (ABNORMAL) CBC (10/18/2025 10:20 PM EST) WBC 11.4(H) 3.8 - 10.8 10E3/uL 10/18/2025 10:59 PM EST [facility] RBC 2.92(L) 4.20 - 5.80 10E6/uL 10/18/2025 10:59 PM EST [facility] Hemoglobin 9.5(L) 13.2 - 17.1 g/dL 10/18/2025 10:59 PM EST [facility] Hematocrit 26.9(L) 38.5 - 50.0 % 10/18/2025 10:59 PM EST [facility] MCV 92.2 80.0 - 100.0 fL 10/18/2025 10:59 PM EST [facility] MCH 32.7 27.0 - 33.0 pg 10/18/2025 10:59 PM EST [facility] MCHC 35.4 32.0 - 36.0 g/dL 10/18/2025 10:59 PM EST [facility] RDW 18.3(H) 11.0 - 15.0 % 10/18/2025 10:59 PM EST [facility] Platelets 22(L) 140 - 400 10E3/uL 10/18/2025 10:59 PM EST [facility] Comment: CNV Specimen checked for clots. None detected. MPV 7.8 7.5 - 11.5 fL 10/18/2025 10:59 PM EST [facility] Whole Blood 10/18/2025 10:2 0 PM EST 10/18/2025 10:26 PM EST us Aspen Parr MD LAB BLOOD ORDERABLES Final Resul t Performing Organization Address [facility] Co de Phone Number [facility] [address] [facility]. [address] * (ABNORMAL) POC Glucose Monitoring Device (10/18/2025 10:07 PM EST) POC Glucose Monitoring Device 134(H) 70 - 100 mg/dL 10/18/2025 10:08 PM EST [facility] Blood 10/18/2025 10:0 7 PM EST 10/18/2025 10:08 PM EST us Vani Winkler MD POINT OF CARE TEST ORDERABLE S Final Result Performing Organization Address [facility] de Phone Number [facility] [address] [facility]. [address] * (ABNORMAL) POC Glucose Monitoring Device (10/18/2025 8:14 PM EST) POC Glucose Monitoring Device 138(H) 70 - 100 mg/dL 10/18/2025 8:15 PM EST [facility] Blood 10/18/2025 8:14 PM EST 10/18/2025 8:15 PM EST us Vani Winkler MD POINT OF CARE TEST ORDERABLE S Final Result Performing Organization Address [facility] Co de Phone Number [facility] [address] [facility]. [address] * Lactic Acid (10/18/2025 5:47 PM EST) Lactate 0.7 0.5 - 2.2 mmol/L 10/18/2025 8:43 PM EST [facility] Plasma 10/18/2025 5:47 PM EST 10/18/2025 7:56 PM EST us Aspen Parr MD LAB BLOOD ORDERABLES Final Resul t [facility] [address] [facility]. [address] * Magnesium (10/18/2025 5:47 PM EST) Magnesium 1.9 1.5 - 2.5 mg/dL 10/18/2025 6:40 PM EST [facility] Plasma 10/18/2025 5:47 PM EST 10/18/2025 5:54 PM EST us Aspen Parr MD LAB BLOOD ORDERABLES Final Resul t Performing Organization Address City/[facility] Co de Phone Number [facility] [address] * (ABNORMAL) Hepatic Function Panel (10/18/2025 5:47 PM EST) Total Bilirubin 1.1 0.0 - 1.5 mg/dL 10/18/2025 6:40 PM EST [facility] Bilirubin, Direct 0.56(H) 0.00 - 0.40 mg/dL 10/18/2025 6:40 PM EST [facility] AST 965(H) 13 - 39 U/L 10/18/2025 6:40 PM EST [facility] ALT 871(H) 7 - 52 U/L 10/18/2025 6:40 PM EST [facility] Alkaline Phosphatase 61 36 - 125 U/L 10/18/2025 6:40 PM EST [facility] Total Protein 4.3(L) 6.4 - 8.9 g/dL 10/18/2025 6:40 PM EST [facility] Albumin 2.2(L) 3.5 - 5.7 g/dL 10/18/2025 6:40 PM EST [facility] Bilirubin, Indirect 0.54 0.00 - 1.10 mg/dL 10/18/2025 6:40 PM EST [facility] Plasma 10/18/2025 5:47 PM EST 10/18/2025 5:54 PM EST us Aspen Parr MD LAB BLOOD ORDERABLES Final Resul t [facility] [address] [place] [address], [facility] * (ABNORMAL) Renal Function Panel w/EGFR (10/18/2025 5:47 PM EST) Sodium 144 133 - 146 mmol/L 10/18/2025 6:27 PM EST [facility] Potassium 3.4(L) 3.5 - 5.3 mmol/L 10/18/2025 6:27 PM EST [facility] Chloride 112(H) 98 - 110 mmol/L 10/18/2025 6:27 PM EST [facility] CO2 24 21 - 33 mmol/L 10/18/2025 6:27 PM EST [facility] Comment:High lactate dehydro genase concentrations in patient samples may cause falsely increased bicarbonate results. If markedly elevated LDH is observed or suspected, please assess results in conjunction with patient`s clinical presentation. In cases of discrepant results, consider evaluating CO2 in with a blood gas order. Anion Gap 8 3 - 16 mmol/L 10/18/2025 6:27 PM EST [facility] BUN 29(H) 7 - 25 mg/dL 10/18/2025 6:27 PM EST [facility] Creatinine 1.09 0.60 - 1.30 mg/dL 10/18/2025 6:27 PM EST [facility] Glucose 136(H) 70 - 100 mg/dL 10/18/2025 6:27 PM EST [facility] Calcium 7.5(L) 8.6 - 10.3 mg/dL 10/18/2025 6:27 PM EST [facility] Phosphorus 3.8 2.1 - 4.7 mg/dL 10/18/2025 6:40 PM EST [facility] Albumin 2.2(L) 3.5 - 5.7 g/dL 10/18/2025 6:40 PM EST [facility] Osmolality, Calculated 306(H) 278 - 305 mOsm/kg 10/18/2025 6:27 PM EST [facility] EGFR 76 10/18/2025 6:27 PM EST [facility] Comment:As of 2022, the estimated GFR [...] ORDERABLES Final Resul t Performing Organization Address [facility] Co de Phone Number [facility] [address] * (ABNORMAL) Protime-INR (10/18/2025 5:47 PM EST) Protime 21.8(H) 12.1 - 15.1 seconds 10/18/2025 6:13 PM EST [facility] INR 1.8(H) 0.9 - 1.1 10/18/2025 6:13 PM EST [facility] Comment: RECOMMENDED THERAPEUTIC RANGES USING INR : Stable oral anticoagulant therapy: 2.0 - 3.0 Mechanical prosthetic heart valve: 2.5 - 3.5 Recurrent acute myocardial infarction: 2.5 - 3.5 Plasma 10/18/2025 5:47 PM EST 10/18/2025 5:54 PM EST Aspen Parr MD LAB BLOOD ORDERABLES Final Resul t Performing Organization Address City/[facility]/ZIP Co de Phone Number [facility] [address] * (ABNORMAL) CBC (10/18/2025 5:47 PM EST) WBC 11.8(H) 3.8 - 10.8 10E3/uL 10/18/2025 6:06 PM EST [facility] RBC 3.06(L) 4.20 - 5.80 10E6/uL 10/18/2025 6:06 PM EST [facility] Hemoglobin 10.0(L) 13.2 - 17.1 g/dL 10/18/2025 6:06 PM EST [facility] Hematocrit 28.3(L) 38.5 - 50.0 % 10/18/2025 6:06 PM EST [facility] MCV 92.5 80.0 - 100.0 fL 10/18/2025 6:06 PM EST [facility] MCH 32.5 27.0 - 33.0 pg 10/18/2025 6:06 PM EST [facility] MCHC 35.2 32.0 - 36.0 g/dL 10/18/2025 6:06 PM EST [facility] RDW 18.6(H) 11.0 - 15.0 % 10/18/2025 6:06 PM EST [facility] Platelets 22(L) 140 - 400 10E3/uL 10/18/2025 6:06 PM EST [facility] Comment: CNV Specimen checked for clots. None detected. MPV 7.7 7.5 - 11.5 fL 10/18/2025 6:06 PM EST [facility] Whole Blood 10/18/2025 5:47 PM EST 10/18/2025 5:54 PM EST us Aspen Parr MD LAB BLOOD ORDERABLES Final Resul t [facility] [address] [place] [address], [facility] * (ABNORMAL) POC Glucose Monitoring Device (10/18/2025 5:45 PM EST) POC Glucose Monitoring Device 135(H) 70 - 100 mg/dL 10/18/2025 5:46 PM EST [facility] Blood 10/18/2025 5:45 PM EST 10/18/2025 5:46 PM EST Vani Winkler MD POINT OF CARE TEST ORDERABLE S Final Result Performing Organization Address [facility] Co de Phone Number [facility] [address] [place] [address]. [address] * (ABNORMAL) POC Glucose Monitoring Device (10/18/2025 3:06 PM EST) POC Glucose Monitoring Device 128(H) 70 - 100 mg/dL 10/18/2025 3:07 PM EST [facility] Blood 10/18/2025 3:06 PM EST 10/18/2025 3:07 PM EST us Vani Winkler MD POINT OF CARE TEST ORDERABLE S Final Result Performing Organization Address [facility] Co de Phone Number [facility] [address] [place] [address]. [address] * (ABNORMAL) POC Glucose Monitoring Device (10/18/2025 1:15 PM EST) POC Glucose Monitoring Device 128(H) 70 - 100 mg/dL 10/18/2025 1:15 PM EST [facility] Blood 10/18/2025 1:15 PM EST 10/18/2025 1:15 PM EST Vani Winkler MD POINT OF CARE TEST ORDERABLE S Final Result Performing Organization Address [facility] Co de Phone Number [facility] [address] [place] [address]. [address] * (ABNORMAL) POC Glucose Monitoring Device (10/18/2025 12:12 PM EST) POC Glucose Monitoring Device 124(H) 70 - 100 mg/dL 10/18/2025 12:13 PM EST [facility] Blood 10/18/2025 12:1 2 PM EST 10/18/2025 12:13 PM EST Vani Winlker MD POINT OF CARE TEST ORDERABLE S Final Result Performing Organization Address [facility] Co de Phone Number [facility] [address] * Prepare Fresh Frozen Plasma (10/18/2025 11:58 AM EST) Product Code [id number] [facility] Unit Number [id number] [facility] Dispense Status Released from [employer] [facility] Blood Expiration Date [facility] Coding System [id number] [facility] Product Code T9103S44 [facility] Unit Number [id number] [facility] Dispense Status Released from [employer] [facility] Blood Expiration Date [facility] Coding System [id number] [facility] Product Code H2812K74 [facility] Unit Number [id number] [facility] Dispense Status Released from [employer] [facility] Blood Expiration Date [facility]LL Coding System [id number] [facility] Product Code G5261I90 [facility] Unit Number [id number] [facility] Dispense Status Released from [employer] [facility] Blood Expiration Date [facility]LL Coding System [id number] [facility] Product Code L7174F60 [facility] Unit Number [id number] [facility] Dispense Status Released from [employer] [facility] Blood Expiration Date [facility]LL Coding System [id number] HCLL us Attending Provider Unknown BLOOD BANK PRODUCT OR DERABLES Final Result Performing Organization Address City/[facility] Co de Phone Number [facility] * Lactic Acid (10/18/2025 11:21 AM EST) Lactate 0.7 0.5 - 2.2 mmol/L 10/18/2025 12:05 PM EST [facility] Plasma 10/18/2025 11:2 1 AM EST 10/18/2025 11:25 AM EST Aspen Parr MD LAB BLOOD ORDERABLES Final Resul t Performing Organization Address City/[facility] Co de Phone Number [facility] [address] * Magnesium (10/18/2025 11:21 AM EST) Magnesium 2.0 1.5 - 2.5 mg/dL 10/18/2025 12:23 PM EST [facility] Plasma 10/18/2025 11:2 1 AM EST 10/18/2025 11:25 AM EST us Aspen Parr MD LAB BLOOD ORDERABLES Final Resul t [facility] [address] * (ABNORMAL) Hepatic Function Panel (10/18/2025 11:21 AM EST) Total Bilirubin 1.3 0.0 - 1.5 mg/dL 10/18/2025 12:23 PM EST [facility] Bilirubin, Direct 0.74(H) 0.00 - 0.40 mg/dL 10/18/2025 12:23 PM EST [facility] AST 1,689(H) 13 - 39 U/L 10/18/2025 12:23 PM EST [facility] ALT 1034(H) 7 - 52 U/L 10/18/2025 12:23 PM EST [facility] Alkaline Phosphatase 60 36 - 125 U/L 10/18/2025 12:23 PM EST [facility] Total Protein 4.3(L) 6.4 - 8.9 g/dL 10/18/2025 12:23 PM EST [facility] Albumin 2.3(L) 3.5 - 5.7 g/dL 10/18/2025 12:23 PM EST [facility] Bilirubin, Indirect 0.56 0.00 - 1.10 mg/dL 10/18/2025 12:23 PM EST [facility] Plasma 10/18/2025 11:2 1 AM EST 10/18/2025 11:25 AM EST us Aspen Parr MD LAB BLOOD ORDERABLES Final Resul t [facility] [address] [place] [id number], [facility] * (ABNORMAL) Renal Function Panel w/EGFR (10/18/2025 11:21 AM EST) Sodium 146 133 - 146 mmol/L 10/18/2025 12:06 PM EST [facility] Potassium 3.9 3.5 - 5.3 mmol/L 10/18/2025 12:06 PM [facility] Chloride 114(H) 98 - 110 mmol/L 10/18/2025 12:06 PM [facility] CO2 25 21 - 33 mmol/L 10/18/2025 12:06 PM [facility] Comment:High lactate dehydro genase concentrations in patient samples may cause falsely increased bicarbonate results. If markedly elevated LDH is observed or suspected, please assess results in conjunction with patient`s clinical presentation. In cases of discrepant results, consider evaluating CO2 in with a blood gas order. Anion Gap 7 3 - 16 mmol/L 10/18/2025 12:06 PM [facility] BUN 26(H) 7 - 25 mg/dL 10/18/2025 12:06 PM [facility] Creatinine 1.01 0.60 - 1.30 mg/dL 10/18/2025 12:06 PM [facility] Glucose 113(H) 70 - 100 mg/dL 10/18/2025 12:06 PM [facility] Calcium 7.8(L) 8.6 - 10.3 mg/dL 10/18/2025 12:06 PM [facility] Phosphorus 3.1 2.1 - 4.7 mg/dL 10/18/2025 12:23 PM [facility] Albumin 2.3(L) 3.5 - 5.7 g/dL 10/18/2025 12:23 PM [facility] Osmolality, Calculated 308(H) 278 - 305 mOsm/kg 10/18/2025 12:06 PM [facility] EGFR 83 10/18/2025 12:06 PM [facility] Comment:As of 2022, the estimated [...] ORDERABLES Final Resul t Performing Organization Address [facility] de Phone Number [facility] [address] [place] [address]. [address] * (ABNORMAL) Protime-INR (10/18/2025 11:21 AM EST) Protime 23.6(H) 12.1 - 15.1 seconds 10/18/2025 11:44 AM EST [facility] INR 2.0(H) 0.9 - 1.1 10/18/2025 11:44 AM EST [facility] Comment: RECOMMENDED THERAPEUTIC RANGES USING INR : Stable oral anticoagulant therapy: 2.0 - 3.0 Mechanical prosthetic heart valve: 2.5 - 3.5 Recurrent acute myocardial infarction: 2.5 - 3.5 Plasma 10/18/2025 11:2 1 AM EST 10/18/2025 11:25 AM EST Aspen Parr MD LAB BLOOD ORDERABLES Final Resul t Performing Organization Address [facility] de Phone Number [facility] [address] [place] [address]. [address] * (ABNORMAL) CBC (10/18/2025 11:21 AM EST) WBC 10.9(H) 3.8 - 10.8 10E3/uL 10/18/2025 11:44 AM EST [facility] RBC 3.10(L) 4.20 - 5.80 10E6/uL 10/18/2025 11:44 AM EST [facility] Hemoglobin 10.2(L) 13.2 - 17.1 g/dL 10/18/2025 11:44 AM EST [facility] Hematocrit 29.0(L) 38.5 - 50.0 % 10/18/2025 11:44 AM EST [facility] MCV 93.7 80.0 - 100.0 fL 10/18/2025 11:44 AM EST [facility] MCH 32.9 27.0 - 33.0 pg 10/18/2025 11:44 AM EST [facility] MCHC 35.1 32.0 - 36.0 g/dL 10/18/2025 11:44 AM EST [facility] RDW 18.4(H) 11.0 - 15.0 % 10/18/2025 11:44 AM EST [facility] Platelets 29(L) 140 - 400 10E3/uL 10/18/2025 11:44 AM EST [facility] Comment:CNV MPV 7.6 7.5 - 11.5 fL 10/18/2025 11:44 AM EST [facility] Whole Blood 10/18/2025 11:2 1 AM EST 10/18/2025 11:25 AM EST us Aspen Parr MD LAB BLOOD ORDERABLES Final Resul t Performing Organization Address City/State/[facility] Co de Phone Number [facility] [address] * (ABNORMAL) POC Glucose Monitoring Device (10/18/2025 11:04 AM EST) POC Glucose Monitoring Device 121(H) 70 - 100 mg/dL 10/18/2025 11:05 AM EST [facility] Blood 10/18/2025 11:0 4 AM EST 10/18/2025 11:05 AM EST us Vani Winkler MD POINT OF CARE TEST ORDERABLE S Final Result [facility] [address] [place] [address], [facility] * (ABNORMAL) POC Glucose Monitoring Device (10/18/2025 10:29 AM EST) POC Glucose Monitoring Device 120(H) 70 - 100 mg/dL 10/18/2025 10:34 AM EST [facility] Blood 10/18/2025 10:2 9 AM EST 10/18/2025 10:34 AM EST us Vani Winkler MD POINT OF CARE TEST ORDERABLE S Final Result Performing Organization Address City/[facility] Co de Phone Number [facility] [address] * US Duplex [id number]-[id number] Comp (10/18/2025 9:35 AM EST) Anatomical Region [...] EXAM: US ABDOMEN LIMITED EXAM: US DUPLEX [id number] COMPLETE INDICATION: Post-op liver transplant Day 1 [...] EXAM: US ABDOMEN LIMITED EXAM: US DUPLEX [id number] COMPLETE INDICATION: Post-op liver transplant Day 1 [...] 10/18/2025 9:53 AM EST Aspen Parr MD [facility] US ORDERABLES Final Result * US Abdomen [...] EXAM: US ABDOMEN LIMITED EXAM: US DUPLEX [id number] COMPLETE INDICATION: Post-op liver transplant Day 1 [...] EXAM: US ABDOMEN LIMITED EXAM: US DUPLEX [id number] COMPLETE INDICATION: Post-op liver transplant Day 1 [...] 10/18/2025 9:53 AM EST Aspen Parr MD [facility] ORDERABLES Final Result * (ABNORMAL) POC Glucose Monitoring Device (10/18/2025 9:11 AM EST) [facility] POC Glucose Monitoring Device 165(H) 70 - 100 mg/dL 10/18/2025 9:13 AM EST [facility] Blood 10/18/2025 9:11 AM EST 10/18/2025 9:12 AM EST Vani Winkler MD POINT OF CARE TEST ORDERABLE S Final Result Performing Organization Address City/[facility]/ZIP Co de Phone Number [facility] [address] * (ABNORMAL) POC Glucose Monitoring Device (10/18/2025 7:56 AM EST) [facility] POC Glucose Monitoring Device 179(H) 70 - 100 mg/dL 10/18/2025 7:57 AM EST [facility] Blood 10/18/2025 7:56 AM EST 10/18/2025 7:57 AM EST Vani Winkler MD POINT OF CARE TEST ORDERABLE S Final Result [facility] [address] * (ABNORMAL) POC Glucose Monitoring Device (10/18/2025 6:59 AM EST) POC Glucose Monitoring Device 187(H) 70 - 100 mg/dL 10/18/2025 7:00 AM EST [facility] Blood 10/18/2025 6:59 AM EST 10/18/2025 7:00 AM EST us Vani Winkler MD POINT OF CARE TEST ORDERABLE S Final Result [facility] [address] [place] [id number] * X-ray Portable Chest (10/18/2025 6:37 AM [...] below level of diaphragms and outside the [id number]. Right internal jugular approach pulmonary artery catheter [...] courses below level of diaphragms andoutside the [id number]. Right internal jugular approach pulmonaryartery catheter projects [...] Units (10/18/2025 6:17 AM EST) Product Code T5561R08 HCLL Unit Number [id number] HCLL Dispense Status Presumed Transfused_PT HCLL Blood Expiration Date HCLL Coding System [id number] HCLL Blood Bank Product Oskar Torres MD BLOOD BANK PRODUCT ORDERABLES Final Result Performing Organization Address City/[facility]/ZIP Co de Phone Number HCLL * Prepare Platelets, leukoreduced, 2 Units (10/18/2025 6:17 AM EST) Product Code HD098U16 HCLL Unit Number [id number] HCLL Dispense Status Presumed Transfused_PT HCLL Blood Expiration Date HCLL Coding System RQLT916 HCLL Product Code P9070X44 HCLL Unit Number [id number] HCLL Dispense Status Presumed Transfused_PT HCLL Blood Expiration Date HCLL Coding System TMXU574 HCLL Blood Bank Product Slade Munoz MD BLOOD BANK PRODUCT ORDERABLES Fi nal Result HCLL * Prepare RBC, leukoreduced, 5 Units (10/18/2025 6:16 AM EST) Product Code C8792F12 HCLL Unit Number [id number] HCLL Dispense Status Presumed Transfused_PT HCLL Blood Expiration Date HCLL Coding System WWJG322 HCLL Product Code W8678X86 HCLL Unit Number [id number] HCLL Dispense Status Presumed Transfused_PT HCLL Blood Expiration Date HCLL Coding System VZWX293 HCLL Product Code L2695I19 HCLL Unit Number [id number] HCLL Dispense Status Presumed Transfused_PT HCLL Blood Expiration Date HCLL Coding System BSTV497 HCLL Product Code K3979E16 HCLL Unit Number [id number] HCLL Dispense Status Released from Crossmatch_RE HCLL Blood Expiration Date HCLL Coding System FILV505 HCLL Product Code U0258B28 HCLL Unit Number [id number] HCLL Dispense Status Presumed Transfused_PT HCLL Blood Expiration Date HCLL Coding System RQAL937 HCLL Blood Bank Product Kassi INTERIANO BLOOD BANK PRODUCT ORDERABLES Final Result HCLL * Prepare Cryoprecipitate (10/18/2025 6:15 AM EST) Product Code K4219L69 HCLL Unit Number [id number] HCLL Dispense Status Presumed Transfused_PT HCLL Blood Expiration Date HCLL Coding System XBSL546 HCLL Attending Provider Unknown BLOOD BANK PRODUCT OR DERABLES Final Result HCLL * Prepare Cryoprecipitate, 1 Units (10/18/2025 6:15 AM EST) Product Code P6276N59 HCLL Unit Number [id number] HCLL Dispense Status Presumed Transfused_PT HCLL Blood Expiration Date HCLL Coding System DUQH218 HCLL Blood Bank Product Oskar Torres MD BLOOD BANK PRODUCT ORDERABLES Final Result Performing Organization Address [facility] de Phone Number HCLL * Prepare Cryoprecipitate, 1 Units (10/18/2025 6:15 AM EST) Product Code U3249I88 HCLL Unit Number [id number] HCLL Dispense Status Presumed Transfused_PT HCLL Blood Expiration Date HCLL Coding System ADNR021 HCLL Product Code P1926L82 HCLL Unit Number [id number] HCLL Dispense Status Presumed Transfused_PT HCLL Blood Expiration Date HCLL Coding System STZB472 HCLL Blood Bank Product Shannan Salas MD BLOOD BANK PRODUCT ORDERABLE S Final Result Performing Organization Address [facility] de Phone Number HCLL * Prepare Cryoprecipitate, 1 Units (10/18/2025 6:15 AM EST) Product Code I7410D73 HCLL Unit Number [id number] HCLL Dispense Status Presumed Transfused_PT HCLL Blood Expiration Date HCLL Coding System XEXG573 HCLL Blood Bank Product Slade Munoz MD BLOOD BANK PRODUCT ORDERABLES Fi nal Result Performing Organization Address [facility] de Phone Number HCLL * Prepare Cryoprecipitate, 1 Units (10/18/2025 6:15 AM EST) Product Code Y3510N23 HCLL Unit Number [id number] HCLL Dispense Status Presumed Transfused_PT HCLL Blood Expiration Date HCLL Coding System VBVA420 HCLL Blood Bank Product Slade Munoz MD BLOOD BANK PRODUCT ORDERABLES Fi nal Result Performing Organization Address City/[facility] Co de Phone Number HCLL * Prepare RBC, leukoreduced (10/18/2025 6:15 AM EST) Product Code N8191V70 HCLL Unit Number [id number] HCLL Dispense Status Released from Crossmatch_RE HCLL Blood Expiration Date HCLL Coding System JOXH921 HCLL Product Code R9557W93 HCLL Unit Number [id number] HCLL Dispense Status Released from Crossmatch_RE HCLL Blood Expiration Date HCLL Coding System PCVC935 HCLL Product Code M6934F82 HCLL Unit Number [id number] HCLL Dispense Status Released from Crossmatch_RE HCLL Blood Expiration Date HCLL Coding System VFXS851 HCLL Product Code R3117X31 HCLL Unit Number [id number] HCLL Dispense Status Released from Crossmatch_RE HCLL Blood Expiration Date HCLL Coding System SCYZ303 HCLL Product Code O2387X73 HCLL Unit Number [id number] HCLL Dispense Status Presumed Transfused_PT HCLL Blood Expiration Date HCLL Coding System LHPF166 HCLL us Attending Provider Unknown BLOOD BANK PRODUCT OR DERABLES Final Result Performing Organization Address City/[facility]/ZIP Co de Phone Number HCLL * Prepare Fresh Frozen Plasma, 5 Units (10/18/2025 6:15 AM EST) Product Code L9487O90 HCLL Unit Number [id number] HCLL Dispense Status Presumed Transfused_PT HCLL Blood Expiration Date HCLL Coding System GQEC099 HCLL Product Code M0750H92 HCLL Unit Number [id number] HCLL Dispense Status Presumed Transfused_PT HCLL Blood Expiration Date HCLL Coding System LXFU822 HCLL Product Code C6073X61 HCLL Unit Number [id number] HCLL Dispense Status Presumed Transfused_PT HCLL Blood Expiration Date HCLL Coding System HBUA827 HCLL Product Code J0200L40 HCLL Unit Number [id number] HCLL Dispense Status Presumed Transfused_PT HCLL Blood Expiration Date HCLL Coding System JWVI631 HCLL Product Code W0168M24 HCLL Unit Number [id number] HCLL Dispense Status Presumed Transfused_PT HCLL Blood Expiration Date HCLL Coding System GLQG353 HCLL Blood Bank Product Kassi INTERIANO BLOOD BANK PRODUCT ORDERABLES Final Result HC[facility] * (ABNORMAL) POC Glucose Monitoring Device (10/18/2025 6:06 AM EST) POC Glucose Monitoring Device 214(H) 70 - 100 mg/dL 10/18/2025 6:06 AM EST [facility] Blood 10/18/2025 6:06 AM EST 10/18/2025 6:06 AM EST Vani Winkler MD POINT OF CARE TEST ORDERABLE S Final Result Performing Organization Address City/[facility]/ZIP Co de Phone Number [facility] [address] * (ABNORMAL) Blood gas, arterial (10/18/2025 5:19 AM EST) O2 Sat, Arterial 97 10/18/2025 5:28 AM EST [facility] FIO2 40 10/18/2025 5:28 AM EST [facility] pH, Arterial 7.34(L) 7.35 - 7.45 10/18/2025 5:28 AM EST [facility] pCO2, Arterial 48(H) 35 - 45 mm Hg 10/18/2025 5:28 AM EST [facility] pO2, Arterial 84 80 - 100 mm Hg 10/18/2025 5:28 AM EST [facility] HCO3, Arterial 25 22 - 26 mmol/L 10/18/2025 5:28 AM EST [facility] CO2 Content,Arteri al 27 23 - 27 mmol/L 10/18/2025 5:28 AM EST [facility] Base Excess, Arterial -0.2 -2.0 - 3.0 mmol/L 10/18/2025 5:28 AM EST [facility] %HBO2, Arterial 94.1(L) 95.0 - 98.0 % 10/18/2025 5:28 AM EST [facility] Carboxyhemoglo bin, Arterial 2.5 % 10/18/2025 5:28 AM EST [facility] Comment: CARBOXYHEMOGLOBIN (CO) REFERENCE RANGES: Non-Smokers: <2 % Smokers: <8 % TOXIC: >20 % Methemoglobin, Arterial 0.5 0.0 - 1.5 % 10/18/2025 5:28 AM EST [facility] Blood, Arterial 10/18/2025 5 :19 AM EST 10/18/2025 5:25 AM EST us Vani Winkler MD LAB BLOOD ORDERABLES Final R esult [facility] [address] * Lactic Acid (10/18/2025 5:02 AM EST) Lactate 1.0 0.5 - 2.2 mmol/L 10/18/2025 5:47 AM EST [facility] Plasma 10/18/2025 5:02 AM EST 10/18/2025 5:09 AM EST us Aspen Parr MD LAB BLOOD ORDERABLES Final Resul t [facility] [address] * Magnesium (10/18/2025 5:02 AM EST) Magnesium 2.0 1.5 - 2.5 mg/dL 10/18/2025 6:05 AM EST [facility] Plasma 10/18/2025 5:02 AM EST 10/18/2025 5:13 AM EST us Aspen Parr MD LAB BLOOD ORDERABLES Final Resul t Performing Organization Address [facility] Co de Phone Number [facility] [address] * (ABNORMAL) Hepatic Function Panel (10/18/2025 5:02 AM EST) Total Bilirubin 1.5 0.0 - 1.5 mg/dL 10/18/2025 6:05 AM EST [facility] Bilirubin, Direct 0.77(H) 0.00 - 0.40 mg/dL 10/18/2025 6:05 AM EST [facility] AST 2,612(H) 13 - 39 U/L 10/18/2025 6:05 AM EST [facility] ALT 1072(H) 7 - 52 U/L 10/18/2025 6:05 AM EST [facility] Alkaline Phosphatase 50 36 - 125 U/L 10/18/2025 6:05 AM EST [facility] Total Protein 4.0(L) 6.4 - 8.9 g/dL 10/18/2025 6:05 AM EST [facility] Albumin 2.2(L) 3.5 - 5.7 g/dL 10/18/2025 6:05 AM EST [facility] Bilirubin, Indirect 0.73 0.00 - 1.10 mg/dL 10/18/2025 6:05 AM EST [facility] Plasma 10/18/2025 5:02 AM EST 10/18/2025 5:13 AM EST us Aspen Parr MD LAB BLOOD ORDERABLES Final Resul t [facility] [address] * (ABNORMAL) Renal Function Panel w/EGFR (10/18/2025 5:02 AM EST) Sodium 146 133 - 146 mmol/L 10/18/2025 6:05 AM [facility] Potassium 3.4(L) 3.5 - 5.3 mmol/L 10/18/2025 6:05 AM [facility] Chloride 111(H) 98 - 110 mmol/L 10/18/2025 6:05 AM [facility] CO2 26 21 - 33 mmol/L 10/18/2025 6:05 AM [facility] Comment:High lactate dehydro genase concentrations in patient samples may cause falsely increased bicarbonate results. If markedly elevated LDH is observed or suspected, please assess results in conjunction with patient`s clinical presentation. In cases of discrepant results, consider evaluating CO2 in with a blood gas order. Anion Gap 9 3 - 16 mmol/L 10/18/2025 6:05 AM [facility] BUN 22 7 - 25 mg/dL 10/18/2025 6:05 AM [facility] Creatinine 0.93 0.60 - 1.30 mg/dL 10/18/2025 6:05 AM [facility] Glucose 193(H) 70 - 100 mg/dL 10/18/2025 6:05 AM [facility] Calcium 7.8(L) 8.6 - 10.3 mg/dL 10/18/2025 6:05 AM [facility] Phosphorus 3.0 2.1 - 4.7 mg/dL 10/18/2025 6:05 AM [facility] Albumin 2.2(L) 3.5 - 5.7 g/dL 10/18/2025 6:05 AM [facility] Osmolality, Calculated 311(H) 278 - 305 mOsm/kg 10/18/2025 6:05 AM [facility] EGFR >90 10/18/2025 6:05 AM [facility] Comment: As of 2022, the [...] Sachin C, Kathy M, Rebecca DC, Josue CARLSON, Dee Dee LOMELI, Nazia LA, et al. [...] 5:02 AM EST 10/18/2025 5:13 AM EST us Aspen Parr MD LAB BLOOD ORDERABLES Final Resul t Performing Organization Address [facility] Co de Phone Number [facility] [address] [facility] * (ABNORMAL) Protime-INR (10/18/2025 5:02 AM EST) Protime 26.0(H) 12.1 - 15.1 seconds 10/18/2025 5:32 AM EST [facility] INR 2.2(H) 0.9 - 1.1 10/18/2025 5:32 AM EST [facility] Comment: RECOMMENDED THERAPEUTIC RANGES USING INR : Stable oral anticoagulant therapy: 2.0 - 3.0 Mechanical prosthetic heart valve: 2.5 - 3.5 Recurrent acute myocardial infarction: 2.5 - 3.5 Plasma 10/18/2025 5:02 AM EST 10/18/2025 5:13 AM EST us Aspen Parr MD LAB BLOOD ORDERABLES Final Resul t Performing Organization Address [facility] Co de Phone Number [facility] [address] [facility]. [address] * (ABNORMAL) CBC (10/18/2025 5:02 AM EST) WBC 7.0 3.8 - 10.8 10E3/uL 10/18/2025 5:27 AM EST [facility] RBC 2.94(L) 4.20 - 5.80 10E6/uL 10/18/2025 5:27 AM EST [facility] Hemoglobin 9.6(L) 13.2 - 17.1 g/dL 10/18/2025 5:27 AM EST [facility] Hematocrit 27.6(L) 38.5 - 50.0 % 10/18/2025 5:27 AM EST [facility] MCV 94.0 80.0 - 100.0 fL 10/18/2025 5:27 AM EST [facility] MCH 32.6 27.0 - 33.0 pg 10/18/2025 5:27 AM EST [facility] MCHC 34.7 32.0 - 36.0 g/dL 10/18/2025 5:27 AM EST [facility] RDW 19.0(H) 11.0 - 15.0 % 10/18/2025 5:27 AM EST [facility] Platelets 36(L) 140 - 400 10E3/uL 10/18/2025 5:27 AM EST [facility] Comment:CNV MPV 8.1 7.5 - 11.5 fL 10/18/2025 5:27 AM EST [facility] Whole Blood 10/18/2025 5:02 AM EST 10/18/2025 5:13 AM EST us Aspen Parr MD LAB BLOOD ORDERABLES Final Resul t [facility] [address] * (ABNORMAL) POC Glucose Monitoring Device (10/18/2025 5:00 AM EST) POC Glucose Monitoring Device 231(H) 70 - 100 mg/dL 10/18/2025 5:06 AM EST [facility] Blood 10/18/2025 5:00 AM EST 10/18/2025 5:06 AM EST us Vani Winkler MD POINT OF CARE TEST ORDERABLE S Final Result [facility] [address] * (ABNORMAL) POC Glucose Monitoring Device (10/18/2025 4:05 AM EST) POC Glucose Monitoring Device 244(H) 70 - 100 mg/dL 10/18/2025 4:06 AM EST [facility] Blood 10/18/2025 4:05 AM EST 10/18/2025 4:06 AM EST Vani Winkler MD POINT OF CARE TEST ORDERABLE S Final Result [facility] [address] [facility]. [address] * (ABNORMAL) POC Glucose Monitoring Device (10/18/2025 3:02 AM EST) POC Glucose Monitoring Device 246(H) 70 - 100 mg/dL 10/18/2025 3:07 AM EST [facility] Blood 10/18/2025 3:02 AM EST 10/18/2025 3:07 AM EST aVni Winkler MD POINT OF CARE TEST ORDERABLE S Final Result Performing Organization Address City/[facility]/ZIP Co de Phone Number [facility] [address] [facility]. [address] * (ABNORMAL) POC Glucose Monitoring Device (10/18/2025 2:05 AM EST) POC Glucose Monitoring Device 249(H) 70 - 100 mg/dL 10/18/2025 2:14 AM EST [facility] Blood 10/18/2025 2:05 AM EST 10/18/2025 2:14 AM EST Vani Winkler MD POINT OF CARE TEST ORDERABLE S Final Result [facility] [address] [facility]. [address] * (ABNORMAL) POC Glucose Monitoring Device (10/18/2025 1:06 AM EST) POC Glucose Monitoring Device 237(H) 70 - 100 mg/dL 10/18/2025 1:07 AM EST [facility] Blood 10/18/2025 1:06 AM EST 10/18/2025 1:07 AM EST Vani Winkler MD POINT OF CARE TEST ORDERABLE S Final Result [facility] [address] [facility]. [address] * (ABNORMAL) POC Glucose Monitoring Device (10/17/2025 11:55 PM EST) POC Glucose Monitoring Device 227(H) 70 - 100 mg/dL 10/18/2025 12:06 AM EST [facility] Blood 10/17/2025 11:5 5 PM EST 10/18/2025 12:06 AM EST Vani Winkler MD POINT OF CARE TEST ORDERABLE S Final Result Performing Organization Address City/[facility] Co de Phone Number [facility] [address] [facility]. [address] * XR Portable Feeding Tube Check [...] 11:50 PM EST us Aspen Parr MD [facility] DIAGNOSTIC IMAGING ORDERABLE S Final Result * Calcium Free, Serum (10/17/2025 10:50 PM EST) Free Calcium, Ser 4.76 4.40 - 5.40 mg/dL 10/17/2025 11:15 PM EST [facility] Comment:Free calcium levels vary inversely with pH by approximately 5% for each 0.1 unit of pH change. Assay results have been normalized to pH = 7.40. Serum 10/17/2025 10:5 0 PM EST 10/17/2025 10:55 PM EST Narrative [facility] - 10/17/2025 11:15 PM EST This test has been developed and its performance characteristics determined by [facility] which is certified under the Clinical Laboratory Improvement Amendment of 1988 (CLIA-88) to perform high complexity testing. The test has not been cleared or approved by the [place] Food and Drug Administration (FDA). The FDA has determined that such clearance is not necessary. The test should be used for clinical purposes and is not regarded as investigational. Duarte El MD LAB BLOOD ORDERABLES Final Result [facility] [address] * (ABNORMAL) TEG-Standard Global Hemostasis (Rapid TEG with Heparin Effect, Contains a Baseline TEG) (10/17/2025 10:50 PM EST) [facility] Citrated Kaolin Reaction Time (TEGHEPARINASE) 12.7(H) 4.6 - 9.1 minutes 10/18/2025 12:03 AM EST [facility] Citrated Rapid Teg Maximum Amplitude (TEGHEPARINASE) 47.8(L) 52.0 - 70.0 mm 10/18/2025 12:03 AM EST [facility] Citrated Functional Fibrinogen Maximum Amplitude (TEGHEPARINASE) 16.8 15.0 - 32.0 mm 10/18/2025 12:03 AM EST [facility] Citrated Kaolin W/Heparinase Reaction Time (TEGHEPARINASE) 11.0(H) 4.3 - 8.3 minutes 10/18/2025 12:03 AM EST [facility] Citrated Kaolin K-Time (TEGHEPARINASE) 4.9(H) 0.8 - 2.1 minutes 10/18/2025 12:03 AM EST [facility] Citrated Kaolin Angle (TEGHEPARINASE) 40.0(L) 63.0 - 78.0 degrees 10/18/2025 12:03 AM EST [facility] Citrated Kaolin Maximum Amplitude (TEGHEPARINASE) 45.2(L) 52.0 - 69.0 mm 10/18/2025 12:03 AM EST [facility] Citrated Functional Fibrinogen- Fibrinogen Level (TEGHEPARINASE) 306.6 278.0 - 581.0 mg/dL 10/18/2025 12:03 AM EST [facility] Whole Blood (Citrate) 10/17/2025 10:50 PM EST 10/17/2025 10:55 PM EST Aspen Parr MD LAB BLOOD ORDERABLES Final Resul t Performing Organization Address City/[facility] Co de Phone Number [facility] [address] [facility]. [address] * Lactic Acid (10/17/2025 10:50 PM EST) Lactate 1.1 0.5 - 2.2 mmol/L 10/17/2025 11:51 PM EST [facility] Plasma 10/17/2025 10:5 0 PM EST 10/17/2025 10:55 PM EST Aspen Parr MD LAB BLOOD ORDERABLES Final Resul t Performing Organization Address City/[facility] Co de Phone Number [facility] [address] [facility] * Fibrinogen (10/17/2025 10:50 PM EST) Fibrinogen 253 218 - 406 mg/dL 10/17/2025 11:06 PM EST [facility] Plasma 10/17/2025 10:5 0 PM EST 10/17/2025 10:55 PM EST Aspen Parr MD LAB BLOOD ORDERABLES Final Resul t Performing Organization Address City/[facility]/ZIP Co de Phone Number [facility] [address] [facility] * (ABNORMAL) Protime-INR (10/17/2025 10:50 PM EST) Protime 25.2(H) 12.1 - 15.1 seconds 10/17/2025 11:06 PM EST [facility] INR 2.1(H) 0.9 - 1.1 10/17/2025 11:06 PM EST [facility] Comment: RECOMMENDED THERAPEUTIC RANGES USING INR : Stable oral anticoagulant therapy: 2.0 - 3.0 Mechanical prosthetic heart valve: 2.5 - 3.5 Recurrent acute myocardial infarction: 2.5 - 3.5 Plasma 10/17/2025 10:5 0 PM EST 10/17/2025 10:55 PM EST us Aspen Parr MD LAB BLOOD ORDERABLES Final Resul t [facility] [address] * (ABNORMAL) Blood gas, arterial (10/17/2025 10:50 PM EST) O2 Sat, Arterial 100 10/17/2025 11:00 PM EST [facility] FIO2 80 fio2 10/17/2025 11:00 PM EST [facility] pH, Arterial 7.38 7.35 - 7.45 10/17/2025 11:00 PM EST [facility] pCO2, Arterial 41 35 - 45 mm Hg 10/17/2025 11:00 PM EST [facility] pO2, Arterial 216(H) 80 - 100 mm Hg 10/17/2025 11:00 PM EST [facility] HCO3, Arterial 24 22 - 26 mmol/L 10/17/2025 11:00 PM EST [facility] CO2 Content,Arteri al 26 23 - 27 mmol/L 10/17/2025 11:00 PM EST [facility] [facility] Base Excess, Arterial -0.8 -2.0 - 3.0 mmol/L 10/17/2025 11:00 PM EST [facility] %HBO2, Arterial 95.2 95.0 - 98.0 % 10/17/2025 11:00 PM EST [facility] Carboxyhemoglo bin, Arterial 3.3 % 10/17/2025 11:00 PM EST [facility] Comment: CARBOXYHEMOGLOBIN (CO) REFERENCE RANGES: Non-Smokers: <2 % Smokers: <8 % TOXIC: >20 % Methemoglobin, Arterial 1.6(H) 0.0 - 1.5 % 10/17/2025 11:00 PM EST [facility] Blood, Arterial 10/17/2025 1 0:50 PM EST 10/17/2025 10:55 PM EST Aspen Parr MD LAB BLOOD ORDERABLES Final Resul t Performing Organization Address [facility] Co de Phone Number [facility] [address] [facility]. [address] * Magnesium (10/17/2025 10:50 PM EST) Magnesium 1.8 1.5 - 2.5 mg/dL 10/18/2025 12:13 AM EST [facility] Plasma 10/17/2025 10:5 0 PM EST 10/17/2025 10:55 PM EST Aspen Parr MD LAB BLOOD ORDERABLES Final Resul t Performing Organization Address [facility] Co de Phone Number [facility] [address] [facility]. [address] * (ABNORMAL) Hepatic Function Panel (10/17/2025 10:50 PM EST) Total Bilirubin 4.5(H) 0.0 - 1.5 mg/dL 10/18/2025 12:13 AM EST [facility] Bilirubin, Direct 3.22(H) 0.00 - 0.40 mg/dL 10/18/2025 12:13 AM EST [facility] AST 3,332(H) 13 - 39 U/L 10/18/2025 12:13 AM EST [facility] ALT 1141(H) 7 - 52 U/L 10/18/2025 12:13 AM EST [facility] Alkaline Phosphatase 63 36 - 125 U/L 10/18/2025 12:13 AM EST [facility] Total Protein 4.0(L) 6.4 - 8.9 g/dL 10/18/2025 12:13 AM EST [facility] Albumin 2.2(L) 3.5 - 5.7 g/dL 10/18/2025 12:13 AM EST [facility] Bilirubin, Indirect 1.28(H) 0.00 - 1.10 mg/dL 10/18/2025 12:13 AM EST [facility] Plasma 10/17/2025 10:5 0 PM EST 10/17/2025 10:55 PM EST us Aspen Parr MD LAB BLOOD ORDERABLES Final Resul t [facility] [address] * (ABNORMAL) Renal Function Panel w/EGFR (10/17/2025 10:50 PM EST) Sodium 145 133 - 146 mmol/L 10/18/2025 12:13 AM EST [facility] Potassium 3.7 3.5 - 5.3 mmol/L 10/18/2025 12:13 AM EST [facility] Chloride 110 98 - 110 mmol/L 10/18/2025 12:13 AM EST [facility] CO2 27 21 - 33 mmol/L 10/18/2025 12:13 AM EST [facility] Comment:High lactate dehydro genase concentrations in patient samples may cause falsely increased bicarbonate results. If markedly elevated LDH is observed or suspected, please assess results in conjunction with patient`s clinical presentation. In cases of discrepant results, consider evaluating CO2 in with a blood gas order. Anion Gap 8 3 - 16 mmol/L 10/18/2025 12:13 AM EST [facility] BUN 17 7 - 25 mg/dL 10/18/2025 12:13 AM EST [facility] Creatinine 0.79 0.60 - 1.30 mg/dL 10/18/2025 12:13 AM [facility] Glucose 225(H) 70 - 100 mg/dL 10/18/2025 12:13 AM EST [facility] Calcium 8.2(L) 8.6 - 10.3 mg/dL 10/18/2025 12:13 AM EST [facility] Phosphorus 3.9 2.1 - 4.7 mg/dL 10/18/2025 12:13 AM EST [facility] Albumin 2.2(L) 3.5 - 5.7 g/dL 10/18/2025 12:13 AM EST [facility] Osmolality, Calculated 309(H) 278 - 305 mOsm/kg 10/18/2025 12:13 AM EST [facility] EGFR >90 10/18/2025 12:13 AM EST [facility] Comment: As of 2022, [...] BLOOD ORDERABLES Final Resul t [facility] [address] [facility] [place] [address], [facility] * (ABNORMAL) CBC (10/17/2025 10:50 PM EST) WBC 5.8 3.8 - 10.8 10E3/uL 10/17/2025 11:03 PM EST [facility] RBC 2.93(L) 4.20 - 5.80 10E6/uL 10/17/2025 11:03 PM EST [facility] Hemoglobin 9.5(L) 13.2 - 17.1 g/dL 10/17/2025 11:03 PM EST [facility] Hematocrit 27.5(L) 38.5 - 50.0 % 10/17/2025 11:03 PM EST [facility] MCV 93.9 80.0 - 100.0 fL 10/17/2025 11:03 PM EST [facility] MCH 32.6 27.0 - 33.0 pg 10/17/2025 11:03 PM EST [facility] MCHC 34.7 32.0 - 36.0 g/dL 10/17/2025 11:03 PM EST [facility] RDW 18.1(H) 11.0 - 15.0 % 10/17/2025 11:03 PM EST [facility] Platelets 52(L) 140 - 400 10E3/uL 10/17/2025 11:03 PM EST [facility] MPV 7.1(L) 7.5 - 11.5 fL 10/17/2025 11:03 PM EST [facility] Whole Blood 10/17/2025 10:5 0 PM EST 10/17/2025 10:55 PM EST us Aspen Parr MD LAB BLOOD ORDERABLES Final Resul t [facility] [address] * (ABNORMAL) POC Glucose Monitoring Device (10/17/2025 10:47 PM EST) [facility] POC Glucose Monitoring Device 234(H) 70 - 100 mg/dL 10/17/2025 10:48 PM EST [facility] Blood 10/17/2025 10:4 7 PM EST 10/17/2025 10:47 PM EST us Vani Winkler MD POINT OF CARE TEST ORDERABLE S Final Result [facility] [address] * POC Sample Type (10/17/2025 9:25 PM EST) POC Sample Type Arterial 10/17/2025 9:51 PM EST [facility] Blood, Arterial 10/17/2025 9 :25 PM EST 10/17/2025 9:51 PM EST Vani Winkler MD POINT OF CARE TEST ORDERABLE S Final Result [facility] [address] * POC Anion Gap (10/17/2025 9:25 PM EST) Pathologist [facility] POC Anion Gap, Arterial 9 3 - 16 mmol/L 10/17/2025 9:51 PM EST [facility] Blood, Arterial 10/17/2025 9 :25 PM EST 10/17/2025 9:51 PM EST Vani Winkler MD POINT OF CARE TEST ORDERABLE S Final Result Performing Organization Address City/[facility]/ZIP Co de Phone Number [facility] [address] [place] [address]. [address] * (ABNORMAL) POC Chloride (10/17/2025 9:25 PM EST) Pathologist [facility] POC Chloride 111(H) 98 - 110 mmol/L 10/17/2025 9:51 PM EST [facility] Blood, Arterial 10/17/2025 9 :25 PM EST 10/17/2025 9:51 PM EST Vani Winkler MD POINT OF CARE TEST ORDERABLE S Final Result Performing Organization Address City/[facility] Co de Phone Number [facility] [address] [place] [address]. [address] * (ABNORMAL) POC Hemoglobin (10/17/2025 9:25 PM EST) Pathologist [facility] POC Hemoglobin 9.0(L) 14.0 - 18.0 g/dL 10/17/2025 9:51 PM EST [facility] Blood, Arterial 10/17/2025 9 :25 PM EST 10/17/2025 9:51 PM EST Vani Winkler MD POINT OF CARE TEST ORDERABLE S Final Result [facility] [address] [place] [address]. [address] * (ABNORMAL) POC hematocrit (10/17/2025 9:25 PM EST) POC Hematocrit 26.0(L) 40 - 52 % 10/17/2025 9:51 PM EST [facility] Blood, Arterial 10/17/2025 9 :25 PM EST 10/17/2025 9:51 PM EST Vani Winkler MD POINT OF CARE TEST ORDERABLE S Final Result Performing Organization Address City/[facility]/ZIP Co de Phone Number [facility] [address] [facility]. [address] * POC Lactate (10/17/2025 9:25 PM EST) Pathologist [facility] POC Lactate 1.50 0.50 - 2.20 mmol/L 10/17/2025 9:51 PM EST [facility] Blood, Arterial 10/17/2025 9 :25 PM EST 10/17/2025 9:51 PM EST Vani Winkler MD POINT OF CARE TEST ORDERABLE S Final Result [facility] [address] [place] [address]. [address] * (ABNORMAL) POC Glucose (10/17/2025 9:25 PM EST) POC Glucose, Arterial 227(H) 70 - 100 mg/dL 10/17/2025 9:51 PM EST [facility] Blood, Arterial 10/17/2025 9 :25 PM EST 10/17/2025 9:51 PM EST Vani Winkler MD POINT OF CARE TEST ORDERABLE S Final Result Performing Organization Address City/[facility]/ZIP Co de Phone Number [facility] [address] [place] [address]. [address] * POC Ionized Calcium (10/17/2025 9:25 PM EST) POC Ionized Calcium 4.90 4.50 - 5.30 mg/dL 10/17/2025 9:51 PM EST [facility] Blood, Arterial 10/17/2025 9 :25 PM EST 10/17/2025 9:51 PM EST Vani Winkler MD POINT OF CARE TEST ORDERABLE S Final Result Performing Organization Address [facility] Co de Phone Number [facility] [address] [facility]. [address] * POC Potassium (10/17/2025 9:25 PM EST) POC Potassium 3.7 3.5 - 5.3 mmol/L 10/17/2025 9:51 PM EST [facility] Blood, Arterial 10/17/2025 9 :25 PM EST 10/17/2025 9:51 PM EST Vani Winkler MD POINT OF CARE TEST ORDERABLE S Final Result Performing Organization Address City/[facility]/ZIP Co de Phone Number [facility] [address] [place] [address]. [address] * POC Sodium (10/17/2025 9:25 PM EST) POC Sodium 142 136 - 146 mmol/L 10/17/2025 9:51 PM EST [facility] Blood, Arterial 10/17/2025 9 :25 PM EST 10/17/2025 9:51 PM EST us Vani Winkler MD POINT OF CARE TEST ORDERABLE S Final Result [facility] [address] [facility]. [address] * POC TCO2 (10/17/2025 9:25 PM EST) POC TCO2, Arterial 23 23 - 27 mmol/L 10/17/2025 9:51 PM EST [facility] Blood, Arterial 10/17/2025 9 :25 PM EST 10/17/2025 9:51 PM EST us Vani Winkler MD POINT OF CARE TEST ORDERABLE S Final Result Performing Organization Address City/[facility]/ZIP Co de Phone Number [facility] [address] * (ABNORMAL) POC O2 SAT (10/17/2025 9:25 PM EST) POC O2 Saturation, Arterial 99(H) 95 - 98 % 10/17/2025 9:51 PM EST [facility] Blood, Arterial 10/17/2025 9 :25 PM EST 10/17/2025 9:51 PM EST us Vani Winkler MD POINT OF CARE TEST ORDERABLE S Final Result Performing Organization Address City/[facility]/ZIP Co de Phone Number [facility] [address] [facility]. [address] * (ABNORMAL) POC Base Excess (10/17/2025 9:25 PM EST) POC Base Excess, Arterial -3(L) -2 - 3 mmol/L 10/17/2025 9:51 PM EST [facility] Blood, Arterial 10/17/2025 9 :25 PM EST 10/17/2025 9:51 PM EST Vani Winkler MD POINT OF CARE TEST ORDERABLE S Final Result [facility] [address] * POC HCO3 (10/17/2025 9:25 PM EST) POC HCO3, Arterial 22 22 - 26 mmol/L 10/17/2025 9:51 PM EST [facility] Blood, Arterial 10/17/2025 9 :25 PM EST 10/17/2025 9:51 PM EST Vani Winkler MD POINT OF CARE TEST ORDERABLE S Final Result Performing Organization Address City/[facility]/ZIP Co de Phone Number [facility] [address] * (ABNORMAL) POC PO2 (10/17/2025 9:25 PM EST) POC pO2, Arterial 161(H) 80 - 100 mm Hg 10/17/2025 9:51 PM EST [facility] Blood, Arterial 10/17/2025 9 :25 PM EST 10/17/2025 9:51 PM EST Vani Winkler MD POINT OF CARE TEST ORDERABLE S Final Result Performing Organization Address City/[facility]/ZIP Co de Phone Number [facility] [address] [facility]. [address] * POC PCO2 (10/17/2025 9:25 PM EST) POC pCO2, Arterial 38 35 - 45 mm Hg 10/17/2025 9:51 PM EST [facility] Blood, Arterial 10/17/2025 9 :25 PM EST 10/17/2025 9:51 PM EST Vani Winkler MD POINT OF CARE TEST ORDERABLE S Final Result [facility] [address] * POC pH (10/17/2025 9:25 PM EST) POC pH, Arterial 7.37 7.35 - 7.45 10/17/2025 9:51 PM EST [facility] Blood, Arterial 10/17/2025 9 :25 PM EST 10/17/2025 9:51 PM EST Vani Winkler MD POINT OF CARE TEST ORDERABLE S Final Result Performing Organization Address [facility] Co de Phone Number [facility] [address] [facility]. [address] * (ABNORMAL) POC INR (10/17/2025 9:24 PM EST) Prothrombin Time INR, POC 2.3(H) 0.8 - 1.4 10/18/2025 12:08 AM EST [facility] Comment: Test results may vary using different testing platforms. Serial result monitoring should be performed using the same methodology. RECOMMENDED THERAPEUTIC RANGES USING INR : Stable oral anticoagulant therapy: 2.0 - 3.0 Mechanical prosthetic heart valve: 2.5 - 3.5 Recurrent acute myocardial infarction: 2.5 - 3.5 Blood 10/17/2025 9:24 PM EST 10/18/2025 12:07 AM EST aVni Winkler MD POINT OF CARE TEST ORDERABLE S Final Result Performing Organization Address City/[facility] Co de Phone Number [facility] [address] [facility]. [address] * Transfuse Fresh Frozen Plasma (10/17/2025 9:17 PM EST) Result [facility] Shannan Salas MD NURSING TREATMENT ORDERABLES - BLOOD ADMIN Final Result * Transfuse Platelets (10/17/2025 9:01 PM EST) Result [facility] Slade Munoz MD NURSING TREATMENT ORDERABLES - B LOOD ADMIN Final Result * Transfuse Cryoprecipitate (10/17/2025 8:49 PM EST) Result [facility] Slade Munoz MD NURSING TREATMENT ORDERABLES - B LOOD ADMIN Final Result * Transfuse Cryoprecipitate (10/17/2025 8:46 PM EST) us Slade Munoz MD NURSING TREATMENT ORDERABLES - B LOOD ADMIN Final Result * (ABNORMAL) TEG-Bypass/ECMO/Liver HN (Factor function, Platelet/Fibrin Clot Strength w/Clot Breakdown, Heparinase In All Channels) (10/17/2025 8:31 PM EST) Citrated Kaolin Reaction Time (TEGECMOLIVER) 9.7(H) 4.6 - 9.1 minutes 10/17/2025 10:13 PM EST [facility] Citrated Kaolin W/Heparinase Reaction Time (TEGECMOLIVER) 3.4(L) 4.3 - 8.3 minutes 10/17/2025 10:13 PM EST [facility] Citrated Kaolin Maximum Amplitude (TEGECMOLIVER) 45.4(L) 52.0 - 69.0 mm 10/17/2025 10:13 PM EST [facility] Citrated Functional Fibrinogen W/Heparinase Maximum Amplitude(TEGEC MOLIVER) 18.0 15.0 - 34.0 mm 10/17/2025 10:13 PM EST [facility] Citrated Rapid Teg W/Heparinase Maximum Amplitude (TEGECMOLIVER) 40.5(L) 53.0 - 69.0 mm 10/17/2025 10:13 PM EST [facility] Citrated Kaolin w/Heparinase Percent Lysis (TEGECMOLIVER) 0.0 0.0 - 3.2 % 10/17/2025 10:13 PM EST [facility] Whole Blood (Citrate) 10/17/2025 8:31 PM EST 10/17/2025 8:40 PM EST us Oskar Torres MD LAB BLOOD ORDERABLES Final Re sult [facility] [address] [facility]. [place], [place] [address] * (ABNORMAL) Fibrinogen (10/17/2025 8:31 PM EST) Fibrinogen 157(L) 218 - 406 mg/dL 10/17/2025 9:00 PM EST [facility] Plasma 10/17/2025 8:31 PM EST 10/17/2025 8:40 PM EST Oskar Torres MD LAB BLOOD ORDERABLES Final Re sult Performing Organization Address City/[facility]/ZIP Co de Phone Number [facility] [address] [facility]. [address] * POC Sample Type (10/17/2025 8:22 PM EST) POC Sample Type Arterial 10/17/2025 8:24 PM EST [facility] Blood, Arterial 10/17/2025 8 :22 PM EST 10/17/2025 8:24 PM EST Vani Winkler MD POINT OF CARE TEST ORDERABLE S Final Result Performing Organization Address [facility] Co de Phone Number [facility] [address] [facility]. [address] * POC Anion Gap (10/17/2025 8:22 PM EST) Pathologist [facility] POC Anion Gap, Arterial 11 3 - 16 mmol/L 10/17/2025 8:24 PM EST [facility] Blood, Arterial 10/17/2025 8 :22 PM EST 10/17/2025 8:24 PM EST Vani Winkler MD POINT OF CARE TEST ORDERABLE S Final Result [facility] [address] [facility]. [address] * POC Chloride (10/17/2025 8:22 PM EST) POC Chloride 108 98 - 110 mmol/L 10/17/2025 8:24 PM EST [facility] Blood, Arterial 10/17/2025 8 :22 PM EST 10/17/2025 8:24 PM EST Vani Winkler MD POINT OF CARE TEST ORDERABLE S Final Result [facility] [address] * (ABNORMAL) POC Hemoglobin (10/17/2025 8:22 PM EST) POC Hemoglobin 9.5(L) 14.0 - 18.0 g/dL 10/17/2025 8:24 PM EST [facility] Blood, Arterial 10/17/2025 8 :22 PM EST 10/17/2025 8:24 PM EST us Vani Winkler MD POINT OF CARE TEST ORDERABLE S Final Result Performing Organization Address [facility] Co de Phone Number [facility] [address] [place] [address]. [address] * (ABNORMAL) POC hematocrit (10/17/2025 8:22 PM EST) POC Hematocrit 28.0(L) 40 - 52 % 10/17/2025 8:24 PM EST [facility] Blood, Arterial 10/17/2025 8 :22 PM EST 10/17/2025 8:24 PM EST Vani Winkler MD POINT OF CARE TEST ORDERABLE S Final Result Performing Organization Address City/[facility]/ZIP Co de Phone Number [facility] [address] [facility]. [address] * POC Lactate (10/17/2025 8:22 PM EST) POC Lactate 1.62 0.50 - 2.20 mmol/L 10/17/2025 8:24 PM EST [facility] Blood, Arterial 10/17/2025 8 :22 PM EST 10/17/2025 8:24 PM EST Vani Winkler MD POINT OF CARE TEST ORDERABLE S Final Result [facility] [address] * (ABNORMAL) POC Glucose (10/17/2025 8:22 PM EST) POC Glucose, Arterial 218(H) 70 - 100 mg/dL 10/17/2025 8:24 PM EST [facility] Blood, Arterial 10/17/2025 8 :22 PM EST 10/17/2025 8:24 PM EST Vani Winkler MD POINT OF CARE TEST ORDERABLE S Final Result Performing Organization Address City/[facility]/ZIP Co de Phone Number [facility] [address] * POC Ionized Calcium (10/17/2025 8:22 PM EST) POC Ionized Calcium 4.80 4.50 - 5.30 mg/dL 10/17/2025 8:24 PM EST [facility] Blood, Arterial 10/17/2025 8 :22 PM EST 10/17/2025 8:24 PM EST Vani Winkler MD POINT OF CARE TEST ORDERABLE S Final Result Performing Organization Address [facility]/ZIP Co de Phone Number [facility] [address] * POC Potassium (10/17/2025 8:22 PM EST) POC Potassium 3.8 3.5 - 5.3 mmol/L 10/17/2025 8:24 PM EST [facility] Blood, Arterial 10/17/2025 8 :22 PM EST 10/17/2025 8:24 PM EST Vani Winkler MD POINT OF CARE TEST ORDERABLE S Final Result [facility] [address] * POC Sodium (10/17/2025 8:22 PM EST) POC Sodium 143 136 - 146 mmol/L 10/17/2025 8:24 PM EST [facility] Blood, Arterial 10/17/2025 8 :22 PM EST 10/17/2025 8:24 PM EST Vani Winkler MD POINT OF CARE TEST ORDERABLE S Final Result [facility] [address] [facility]. [address] * POC TCO2 (10/17/2025 8:22 PM EST) POC TCO2, Arterial 25 23 - 27 mmol/L 10/17/2025 8:24 PM EST [facility] Blood, Arterial 10/17/2025 8 :22 PM EST 10/17/2025 8:24 PM EST Vani Winkler MD POINT OF CARE TEST ORDERABLE S Final Result Performing Organization Address City/[facility]/ZIP Co de Phone Number [facility] [address] [facility]. [address] * (ABNORMAL) POC O2 SAT (10/17/2025 8:22 PM EST) POC O2 Saturation, Arterial 99(H) 95 - 98 % 10/17/2025 8:24 PM EST [facility] Blood, Arterial 10/17/2025 8 :22 PM EST 10/17/2025 8:24 PM EST Vani Winkler MD POINT OF CARE TEST ORDERABLE S Final Result Performing Organization Address City/[facility]/ZIP Co de Phone Number [facility] [address] [facility]. [address] * POC Base Excess (10/17/2025 8:22 PM EST) POC Base Excess, Arterial -1 -2 - 3 mmol/L 10/17/2025 8:24 PM EST [facility] Blood, Arterial 10/17/2025 8 :22 PM EST 10/17/2025 8:24 PM EST Vani Winkler MD POINT OF CARE TEST ORDERABLE S Final Result [facility] [address] [facility]. [address] * POC HCO3 (10/17/2025 8:22 PM EST) POC HCO3, Arterial 24 22 - 26 mmol/L 10/17/2025 8:24 PM EST [facility] Blood, Arterial 10/17/2025 8 :22 PM EST 10/17/2025 8:24 PM EST Vani Winkler MD POINT OF CARE TEST ORDERABLE S Final Result [facility] [address] [facility]. [address] * (ABNORMAL) POC PO2 (10/17/2025 8:22 PM EST) POC pO2, Arterial 131(H) 80 - 100 mm Hg 10/17/2025 8:24 PM EST [facility] Blood, Arterial 10/17/2025 8 :22 PM EST 10/17/2025 8:24 PM EST Vani Winkler MD POINT OF CARE TEST ORDERABLE S Final Result [facility] [address] [facility]. [address] * POC PCO2 (10/17/2025 8:22 PM EST) POC pCO2, Arterial 41 35 - 45 mm Hg 10/17/2025 8:24 PM EST [facility] Blood, Arterial 10/17/2025 8 :22 PM EST 10/17/2025 8:24 PM EST Vani Winkler MD POINT OF CARE TEST ORDERABLE S Final Result [facility] [address] [facility]. [address] * POC pH (10/17/2025 8:22 PM EST) POC pH, Arterial 7.37 7.35 - 7.45 10/17/2025 8:24 PM EST [facility] Blood, Arterial 10/17/2025 8 :22 PM EST 10/17/2025 8:24 PM EST Vani Winkler MD POINT OF CARE TEST ORDERABLE S Final Result Performing Organization Address [facility] de Phone Number [facility] [address] [facility]. [address] * (ABNORMAL) POC INR (10/17/2025 8:21 PM EST) Prothrombin Time INR, POC 2.9(H) 0.8 - 1.4 10/18/2025 12:08 AM EST [facility] Comment: Test results may vary using different testing platforms. Serial result monitoring should be performed using the same methodology. RECOMMENDED THERAPEUTIC RANGES USING INR : Stable oral anticoagulant therapy: 2.0 - 3.0 Mechanical prosthetic heart valve: 2.5 - 3.5 Recurrent acute myocardial infarction: 2.5 - 3.5 Blood 10/17/2025 8:21 PM EST 10/18/2025 12:07 AM EST Vani Winkler MD POINT OF CARE TEST ORDERABLE S Final Result Performing Organization Address City/[facility] Co de Phone Number [facility] [address] * Transfuse Fresh Frozen Plasma (10/17/2025 8:05 PM EST) Shannan Salas MD NURSING TREATMENT ORDERABLES - BLOOD ADMIN Final Result * Transfuse Fresh Frozen Plasma (10/17/2025 8:05 PM EST) Result Neto Salas MD NURSING TREATMENT ORDERABLES - BLOOD ADMIN Final Result * Transfuse Fresh Frozen Plasma (10/17/2025 7:39 PM EST) Result Neto Salas MD NURSING TREATMENT ORDERABLES - BLOOD ADMIN Final Result * Transfuse Fresh Frozen Plasma (10/17/2025 7:39 PM EST) Result Neto Salas MD NURSING TREATMENT ORDERABLES - BLOOD ADMIN Final Result * POC Sample Type (10/17/2025 7:26 PM EST) POC Sample Type Arterial 10/17/2025 7:30 PM EST [facility] Blood, Arterial 10/17/2025 7 :26 PM EST 10/17/2025 7:30 PM EST us Vani Winkler MD POINT OF CARE TEST ORDERABLE S Final Result [facility] [address] * POC Anion Gap (10/17/2025 7:26 PM EST) Pathologist [facility] POC Anion Gap, Arterial 11 3 - 16 mmol/L 10/17/2025 7:30 PM EST [facility] Blood, Arterial 10/17/2025 7 :26 PM EST 10/17/2025 7:30 PM EST us Vani Winkler MD POINT OF CARE TEST ORDERABLE S Final Result [facility] [address] * POC Chloride (10/17/2025 7:26 PM EST) POC Chloride 109 98 - 110 mmol/L 10/17/2025 7:30 PM EST [facility] Blood, Arterial 10/17/2025 7 :26 PM EST 10/17/2025 7:30 PM EST Vani Winkler MD POINT OF CARE TEST ORDERABLE S Final Result Performing Organization Address City/[facility]/ZIP Co de Phone Number [facility] [address] [facility]. [address] * (ABNORMAL) POC Hemoglobin (10/17/2025 7:26 PM EST) POC Hemoglobin 8.6(L) 14.0 - 18.0 g/dL 10/17/2025 7:30 PM EST [facility] Blood, Arterial 10/17/2025 7 :26 PM EST 10/17/2025 7:30 PM EST Vani Winkler MD POINT OF CARE TEST ORDERABLE S Final Result Performing Organization Address [facility] Co de Phone Number [facility] [address] [facility]. [address] * (ABNORMAL) POC hematocrit (10/17/2025 7:26 PM EST) Pathologist [facility] POC Hematocrit 25.0(L) 40 - 52 % 10/17/2025 7:30 PM EST [facility] Blood, Arterial 10/17/2025 7 :26 PM EST 10/17/2025 7:30 PM EST Vani Winkler MD POINT OF CARE TEST ORDERABLE S Final Result [facility] [address] [facility]. [address] * POC Lactate (10/17/2025 7:26 PM EST) POC Lactate 2.16 0.50 - 2.20 mmol/L 10/17/2025 7:30 PM EST [facility] Blood, Arterial 10/17/2025 7 :26 PM EST 10/17/2025 7:30 PM EST Vani Winkler MD POINT OF CARE TEST ORDERABLE S Final Result Performing Organization Address City/[facility]/ZIP Co de Phone Number [facility] [address] [place] [address]. [address] * (ABNORMAL) POC Glucose (10/17/2025 7:26 PM EST) POC Glucose, Arterial 207(H) 70 - 100 mg/dL 10/17/2025 7:30 PM EST [facility] Blood, Arterial 10/17/2025 7 :26 PM EST 10/17/2025 7:30 PM EST Vani Winkler MD POINT OF CARE TEST ORDERABLE S Final Result Performing Organization Address [facility] Co de Phone Number [facility] [address] [place] [address]. [address] * (ABNORMAL) POC Ionized Calcium (10/17/2025 7:26 PM EST) POC Ionized Calcium 5.40(H) 4.50 - 5.30 mg/dL 10/17/2025 7:30 PM EST [facility] Blood, Arterial 10/17/2025 7 :26 PM EST 10/17/2025 7:30 PM EST Vani Winkler MD POINT OF CARE TEST ORDERABLE S Final Result Performing Organization Address City/[facility] Co de Phone Number [facility] [address]. [address] * POC Potassium (10/17/2025 7:26 PM EST) POC Potassium 3.9 3.5 - 5.3 mmol/L 10/17/2025 7:30 PM EST [facility] Blood, Arterial 10/17/2025 7 :26 PM EST 10/17/2025 7:30 PM EST Vani Winkler MD POINT OF CARE TEST ORDERABLE S Final Result [facility] [address] * POC Sodium (10/17/2025 7:26 PM EST) POC Sodium 143 136 - 146 mmol/L 10/17/2025 7:30 PM EST [facility] Blood, Arterial 10/17/2025 7 :26 PM EST 10/17/2025 7:30 PM EST Vani Winkler MD POINT OF CARE TEST ORDERABLE S Final Result Performing Organization Address City/[facility]/ZIP Co de Phone Number [facility] [address] * POC TCO2 (10/17/2025 7:26 PM EST) POC TCO2, Arterial 24 23 - 27 mmol/L 10/17/2025 7:30 PM EST [facility] Blood, Arterial 10/17/2025 7 :26 PM EST 10/17/2025 7:30 PM EST Vani Winkler MD POINT OF CARE TEST ORDERABLE S Final Result Performing Organization Address City/[facility]/ZIP Co de Phone Number [facility] [address] * (ABNORMAL) POC O2 SAT (10/17/2025 7:26 PM EST) POC O2 Saturation, Arterial 99(H) 95 - 98 % 10/17/2025 7:30 PM EST [facility] Blood, Arterial 10/17/2025 7 :26 PM EST 10/17/2025 7:30 PM EST Vani Winkler MD POINT OF CARE TEST ORDERABLE S Final Result [facility] [address] * POC Base Excess (10/17/2025 7:26 PM EST) POC Base Excess, Arterial -2 -2 - 3 mmol/L 10/17/2025 7:30 PM EST [facility] Blood, Arterial 10/17/2025 7 :26 PM EST 10/17/2025 7:30 PM EST Vani Winkler MD POINT OF CARE TEST ORDERABLE S Final Result [facility] [address] [facility]. [address] * POC HCO3 (10/17/2025 7:26 PM EST) POC HCO3, Arterial 23 22 - 26 mmol/L 10/17/2025 7:30 PM EST [facility] Blood, Arterial 10/17/2025 7 :26 PM EST 10/17/2025 7:30 PM EST Vani Winkler MD POINT OF CARE TEST ORDERABLE S Final Result Performing Organization Address City/[facility]/ZIP Co de Phone Number [facility] [address] [facility]. [address] * (ABNORMAL) POC PO2 (10/17/2025 7:26 PM EST) POC pO2, Arterial 156(H) 80 - 100 mm Hg 10/17/2025 7:30 PM EST [facility] Blood, Arterial 10/17/2025 7 :26 PM EST 10/17/2025 7:30 PM EST Vani Winkler MD POINT OF CARE TEST ORDERABLE S Final Result [facility] [address] * POC PCO2 (10/17/2025 7:26 PM EST) POC pCO2, Arterial 40 35 - 45 mm Hg 10/17/2025 7:30 PM EST [facility] Blood, Arterial 10/17/2025 7 :26 PM EST 10/17/2025 7:30 PM EST Vani Winkler MD POINT OF CARE TEST ORDERABLE S Final Result [facility] [address] [facility]. [address] * POC pH (10/17/2025 7:26 PM EST) POC pH, Arterial 7.37 7.35 - 7.45 10/17/2025 7:30 PM EST [facility] Blood, Arterial 10/17/2025 7 :26 PM EST 10/17/2025 7:30 PM EST Result [facility] Vani Winkler MD POINT OF CARE TEST ORDERABLE S Final Result Performing Organization Address [facility] Co de Phone Number [facility] [address] * (ABNORMAL) POC INR (10/17/2025 7:25 PM EST) Prothrombin Time INR, POC 5.9(HH) 0.8 - 1.4 10/18/2025 12:07 AM EST [facility] Comment: Test results may vary using different testing platforms. Serial result monitoring should be performed using the same methodology. RECOMMENDED THERAPEUTIC RANGES USING INR : Stable oral anticoagulant therapy: 2.0 - 3.0 Mechanical prosthetic heart valve: 2.5 - 3.5 Recurrent acute myocardial infarction: 2.5 - 3.5 Blood 10/17/2025 7:25 PM EST 10/18/2025 12:07 AM EST Result [facility] Vani Winkler MD POINT OF CARE TEST ORDERABLE S Final Result Performing Organization Address City/[facility]/ZIP Co de Phone Number [facility] [address] [facility]. [address] * Transfuse Platelets (10/17/2025 7:03 PM EST) Slade Munoz MD NURSING TREATMENT ORDERABLES - B LOOD ADMIN Final Result * (ABNORMAL) TEG-Bypass/ECMO/Liver HN (Factor function, Platelet/Fibrin Clot Strength w/Clot Breakdown, Heparinase In All Channels) (10/17/2025 6:39 PM EST) Citrated Kaolin Reaction Time (TEGECMOLIVER) 7.1 4.6 - 9.1 minutes 10/17/2025 8:07 PM EST [facility] Citrated Kaolin W/Heparinase Reaction Time (TEGECMOLIVER) 2.5(L) 4.3 - 8.3 minutes 10/17/2025 8:07 PM EST [facility] Citrated Kaolin Maximum Amplitude (TEGECMOLIVER) 41.6(L) 52.0 - 69.0 mm 10/17/2025 8:07 PM EST [facility] Citrated Functional Fibrinogen W/Heparinase Maximum Amplitude(TEGEC MOLIVER) 20.9 15.0 - 34.0 mm 10/17/2025 8:07 PM EST [facility] Citrated Rapid Teg W/Heparinase Maximum Amplitude (TEGECMOLIVER) 30.9(L) 53.0 - 69.0 mm 10/17/2025 8:07 PM EST [facility] Citrated Kaolin w/Heparinase Percent Lysis (TEGECMOLIVER) 0.0 0.0 - 3.2 % 10/17/2025 8:07 PM EST [facility] Whole Blood (Citrate) 10/17/2025 6:39 PM EST 10/17/2025 6:45 PM EST us Shannan Salas MD LAB BLOOD ORDERABLES Final R esult [facility] [address] [place], [place] [address] * (ABNORMAL) CBC (10/17/2025 6:39 PM EST) WBC 4.8 3.8 - 10.8 10E3/uL 10/17/2025 6:54 PM EST [facility] RBC 3.19(L) 4.20 - 5.80 10E6/uL 10/17/2025 6:54 PM EST [facility] Hemoglobin 10.3(L) 13.2 - 17.1 g/dL 10/17/2025 6:54 PM EST [facility] Hematocrit 30.2(L) 38.5 - 50.0 % 10/17/2025 6:54 PM EST [facility] MCV 94.8 80.0 - 100.0 fL 10/17/2025 6:54 PM EST [facility] MCH 32.3 27.0 - 33.0 pg 10/17/2025 6:54 PM EST [facility] MCHC 34.1 32.0 - 36.0 g/dL 10/17/2025 6:54 PM EST [facility] RDW 17.8(H) 11.0 - 15.0 % 10/17/2025 6:54 PM EST [facility] Platelets 47(L) 140 - 400 10E3/uL 10/17/2025 6:54 PM EST [facility] Comment:CNV MPV 7.7 7.5 - 11.5 fL 10/17/2025 6:54 PM [facility] Whole Blood 10/17/2025 6:39 PM EST 10/17/2025 6:45 PM EST us Shannan Salas MD LAB BLOOD ORDERABLES Final R esult Performing Organization Address City/State/[facility] Co de Phone Number [facility] [address] * (ABNORMAL) Protime-INR (10/17/2025 6:39 PM EST) Protime 69.5(HH) 12.1 - 15.1 seconds 10/17/2025 7:30 PM EST [facility] Comment:The critical result was called to, and read back by, licensed caregiver ROSALIND HAWK RN, AT 1930 INR 7.5(HH) 0.9 - 1.1 10/17/2025 7:30 PM EST [facility] Comment: RECOMMENDED THERAPEUTIC RANGES [...] MD LAB BLOOD ORDERABLES Final R esult [facility] [address] [facility]. [address] * (ABNORMAL) Fibrinogen (10/17/2025 6:39 PM EST) Fibrinogen 159(L) 218 - 406 mg/dL 10/17/2025 7:04 PM EST [facility] Plasma 10/17/2025 6:39 PM EST 10/17/2025 6:45 PM EST Shannan Salas MD LAB BLOOD ORDERABLES Final R esult Performing Organization Address City/[facility]/ZIP Co de Phone Number [facility] [address] [facility]. [address] * Transfuse Cryoprecipitate (10/17/2025 6:31 PM EST) Result [facility] Slade Munoz MD NURSING TREATMENT ORDERABLES - B LOOD ADMIN Final Result * POC Sample Type (10/17/2025 6:23 PM EST) POC Sample Type Arterial 10/17/2025 6:25 PM EST [facility] Blood, Arterial 10/17/2025 6 :23 PM EST 10/17/2025 6:25 PM EST Vani Winkler MD POINT OF CARE TEST ORDERABLE S Final Result Performing Organization Address City/[facility]/ZIP Co de Phone Number [facility] [address] [facility]. [address] * POC Anion Gap (10/17/2025 6:23 PM EST) POC Anion Gap, Arterial 13 3 - 16 mmol/L 10/17/2025 6:25 PM EST [facility] Blood, Arterial 10/17/2025 6 :23 PM EST 10/17/2025 6:25 PM EST Vani Winkler MD POINT OF CARE TEST ORDERABLE S Final Result [facility] [address] * POC Chloride (10/17/2025 6:23 PM EST) Pathologist [facility] POC Chloride 110 98 - 110 mmol/L 10/17/2025 6:25 PM EST [facility] Blood, Arterial 10/17/2025 6 :23 PM EST 10/17/2025 6:25 PM EST Vani Winkler MD POINT OF CARE TEST ORDERABLE S Final Result [facility] [address] [facility]. [address] * (ABNORMAL) POC Hemoglobin (10/17/2025 6:23 PM EST) [facility] POC Hemoglobin 9.8(L) 14.0 - 18.0 g/dL 10/17/2025 6:25 PM EST [facility] Blood, Arterial 10/17/2025 6 :23 PM EST 10/17/2025 6:25 PM EST Vani Winkler MD POINT OF CARE TEST ORDERABLE S Final Result [facility] [address] * (ABNORMAL) POC hematocrit (10/17/2025 6:23 PM EST) Pathologist [facility] POC Hematocrit 29.0(L) 40 - 52 % 10/17/2025 6:25 PM EST [facility] Blood, Arterial 10/17/2025 6 :23 PM EST 10/17/2025 6:25 PM EST Vani Winkler MD POINT OF CARE TEST ORDERABLE S Final Result [facility] [address] [place] [address]. [address] * (ABNORMAL) POC Lactate (10/17/2025 6:23 PM EST) POC Lactate 3.26(H) 0.50 - 2.20 mmol/L 10/17/2025 6:25 PM EST [facility] Blood, Arterial 10/17/2025 6 :23 PM EST 10/17/2025 6:25 PM EST Vani Winkler MD POINT OF CARE TEST ORDERABLE S Final Result Performing Organization Address [facility]/ZIP Co de Phone Number [facility] [address] [facility]. [address] * (ABNORMAL) POC Glucose (10/17/2025 6:23 PM EST) POC Glucose, Arterial 170(H) 70 - 100 mg/dL 10/17/2025 6:25 PM EST [facility] Blood, Arterial 10/17/2025 6 :23 PM EST 10/17/2025 6:25 PM EST Vani Winkler MD POINT OF CARE TEST ORDERABLE S Final Result [facility] [address] [place] [address]. [address] * (ABNORMAL) POC Ionized Calcium (10/17/2025 6:23 PM EST) POC Ionized Calcium 6.00(H) 4.50 - 5.30 mg/dL 10/17/2025 6:25 PM EST [facility] Blood, Arterial 10/17/2025 6 :23 PM EST 10/17/2025 6:25 PM EST Vani Winkler MD POINT OF CARE TEST ORDERABLE S Final Result [facility] [address] * POC Potassium (10/17/2025 6:23 PM EST) POC Potassium 3.8 3.5 - 5.3 mmol/L 10/17/2025 6:25 PM EST [facility] Blood, Arterial 10/17/2025 6 :23 PM EST 10/17/2025 6:25 PM EST Vani Winkler MD POINT OF CARE TEST ORDERABLE S Final Result Performing Organization Address City/[facility]/ZIP Co de Phone Number [facility] [address] * POC Sodium (10/17/2025 6:23 PM EST) POC Sodium 142 136 - 146 mmol/L 10/17/2025 6:25 PM EST [facility] Blood, Arterial 10/17/2025 6 :23 PM EST 10/17/2025 6:25 PM EST Vani Winkler MD POINT OF CARE TEST ORDERABLE S Final Result [facility] [address] [facility]. [address] * (ABNORMAL) POC TCO2 (10/17/2025 6:23 PM EST) POC TCO2, Arterial 20(L) 23 - 27 mmol/L 10/17/2025 6:25 PM EST [facility] Blood, Arterial 10/17/2025 6 :23 PM EST 10/17/2025 6:25 PM EST Vani Winkler MD POINT OF CARE TEST ORDERABLE S Final Result [facility] [address] [place] [address]. [address] * POC O2 SAT (10/17/2025 6:23 PM EST) POC O2 Saturation, Arterial 95 95 - 98 % 10/17/2025 6:25 PM EST [facility] Blood, Arterial 10/17/2025 6 :23 PM EST 10/17/2025 6:25 PM EST Vani Winkler MD POINT OF CARE TEST ORDERABLE S Final Result Performing Organization Address City/[facility] Co de Phone Number [facility] [address] [place] [address]. [address] * (ABNORMAL) POC Base Excess (10/17/2025 6:23 PM EST) POC Base Excess, Arterial -6(L) -2 - 3 mmol/L 10/17/2025 6:25 PM EST [facility] Blood, Arterial 10/17/2025 6 :23 PM EST 10/17/2025 6:25 PM EST Vani Winkler MD POINT OF CARE TEST ORDERABLE S Final Result [facility] [address] [place] [address]. [address] * (ABNORMAL) POC HCO3 (10/17/2025 6:23 PM EST) POC HCO3, Arterial 19(L) 22 - 26 mmol/L 10/17/2025 6:25 PM EST [facility] Blood, Arterial 10/17/2025 6 :23 PM EST 10/17/2025 6:25 PM EST Vani Winkler MD POINT OF CARE TEST ORDERABLE S Final Result [facility] [address] * POC PO2 (10/17/2025 6:23 PM EST) POC pO2, Arterial 80 80 - 100 mm Hg 10/17/2025 6:25 PM EST [facility] Blood, Arterial 10/17/2025 6 :23 PM EST 10/17/2025 6:25 PM EST us Vani Winkler MD POINT OF CARE TEST ORDERABLE S Final Result Performing Organization Address City/[facility]/ZIP Co de Phone Number [facility] [address] * POC PCO2 (10/17/2025 6:23 PM EST) POC pCO2, Arterial 36 35 - 45 mm Hg 10/17/2025 6:25 PM EST [facility] Blood, Arterial 10/17/2025 6 :23 PM EST 10/17/2025 6:25 PM EST us Vani Winkler MD POINT OF CARE TEST ORDERABLE S Final Result Performing Organization Address [facility]/ZIP Co de Phone Number [facility] [address] * (ABNORMAL) POC pH (10/17/2025 6:23 PM EST) POC pH, Arterial 7.33(L) 7.35 - 7.45 10/17/2025 6:25 PM EST [facility] Blood, Arterial 10/17/2025 6 :23 PM EST 10/17/2025 6:25 PM EST us Vani Winkler MD POINT OF CARE TEST ORDERABLE S Final Result [facility] [address] * (ABNORMAL) POC INR (10/17/2025 6:21 [...] OF CARE TEST ORDERABLE S Final Result [facility] [address] [facility]. [address] * Transfuse Cryoprecipitate (10/17/2025 6:18 PM EST) Slade Munoz MD NURSING TREATMENT ORDERABLES - B LOOD ADMIN Final Result * POC Sample Type (10/17/2025 5:42 PM EST) Pathologist [facility] POC Sample Type Arterial 10/17/2025 6:21 PM EST [facility] Blood, Arterial 10/17/2025 5 :42 PM EST 10/17/2025 6:21 PM EST Vani Winkler MD POINT OF CARE TEST ORDERABLE S Final Result [facility] [address] [facility] * POC Anion Gap (10/17/2025 5:42 PM EST) Pathologist [facility] POC Anion Gap, Arterial 10 3 - 16 mmol/L 10/17/2025 6:21 PM EST [facility] Blood, Arterial 10/17/2025 5 :42 PM EST 10/17/2025 6:21 PM EST Vani Winkler MD POINT OF CARE TEST ORDERABLE S Final Result Performing Organization Address [facility] Co de Phone Number [facility] [address] [place] [address]. [address] * (ABNORMAL) POC Chloride (10/17/2025 5:42 PM EST) POC Chloride 111(H) 98 - 110 mmol/L 10/17/2025 6:21 PM EST [facility] Blood, Arterial 10/17/2025 5:42 PM EST 10/17/2025 6:21 PM EST Vani Winkler MD POINT OF CARE TEST ORDERABLE S Final Result Performing Organization Address [facility] de Phone Number [facility] [address] [place] [address]. [address] * (ABNORMAL) POC Hemoglobin (10/17/2025 5:42 PM EST) POC Hemoglobin 7.9(L) 14.0 - 18.0 g/dL 10/17/2025 6:21 PM EST [facility] Blood, Arterial 10/17/2025 5 :42 PM EST 10/17/2025 6:21 PM EST Vani Winkler MD POINT OF CARE TEST ORDERABLE S Final Result Performing Organization Address [facility] Co de Phone Number [facility] [address] [place] [address]. [address] * (ABNORMAL) POC hematocrit (10/17/2025 5:42 PM EST) POC Hematocrit 23.0(L) 40 - 52 % 10/17/2025 6:21 PM EST [facility] Blood, Arterial 10/17/2025 5 :42 PM EST 10/17/2025 6:21 PM EST Vani Winkler MD POINT OF CARE TEST ORDERABLE S Final Result Performing Organization Address City/[facility]/ZIP Co de Phone Number [facility] [address] * (ABNORMAL) POC Lactate (10/17/2025 5:42 PM EST) POC Lactate 2.53(H) 0.50 - 2.20 mmol/L 10/17/2025 6:21 PM EST [facility] Blood, Arterial 10/17/2025 5 :42 PM EST 10/17/2025 6:21 PM EST Vani Winkler MD POINT OF CARE TEST ORDERABLE S Final Result Performing Organization Address [facility] Co de Phone Number [facility] [address] [facility] * POC Glucose (10/17/2025 5:42 PM EST) POC Glucose, Arterial 77 70 - 100 mg/dL 10/17/2025 6:21 PM EST [facility] Blood, Arterial 10/17/2025 5 :42 PM EST 10/17/2025 6:21 PM EST Vani Winkler MD POINT OF CARE TEST ORDERABLE S Final Result Performing Organization Address [facility] Co de Phone Number [facility] [address] * (ABNORMAL) POC Ionized Calcium (10/17/2025 5:42 PM EST) POC Ionized Calcium 5.90(H) 4.50 - 5.30 mg/dL 10/17/2025 6:21 PM EST [facility] Blood, Arterial 10/17/2025 5 :42 PM EST 10/17/2025 6:21 PM EST Vani Winkler MD POINT OF CARE TEST ORDERABLE S Final Result [facility] [address] * POC Potassium (10/17/2025 5:42 PM EST) POC Potassium 3.7 3.5 - 5.3 mmol/L 10/17/2025 6:21 PM EST [facility] Blood, Arterial 10/17/2025 5 :42 PM EST 10/17/2025 6:21 PM EST Vani Winkler MD POINT OF CARE TEST ORDERABLE S Final Result [facility] [address] * POC Sodium (10/17/2025 5:42 PM EST) POC Sodium 141 136 - 146 mmol/L 10/17/2025 6:21 PM EST [facility] Blood, Arterial 10/17/2025 5 :42 PM EST 10/17/2025 6:21 PM EST Vani Winkler MD POINT OF CARE TEST ORDERABLE S Final Result Performing Organization Address City/[facility]/ZIP Co de Phone Number [facility] [address] [facility]. [address] * (ABNORMAL) POC TCO2 (10/17/2025 5:42 PM EST) POC TCO2, Arterial 21(L) 23 - 27 mmol/L 10/17/2025 6:21 PM EST [facility] Blood, Arterial 10/17/2025 5 :42 PM EST 10/17/2025 6:21 PM EST Vani Winkler MD POINT OF CARE TEST ORDERABLE S Final Result [facility] [address] [facility]. [address] * (ABNORMAL) POC O2 SAT (10/17/2025 5:42 PM EST) POC O2 Saturation, Arterial 99(H) 95 - 98 % 10/17/2025 6:21 PM EST [facility] Blood, Arterial 10/17/2025 5 :42 PM EST 10/17/2025 6:21 PM EST Vani Winkler MD POINT OF CARE TEST ORDERABLE S Final Result [facility] [address] [facility]. [address] * (ABNORMAL) POC Base Excess (10/17/2025 5:42 PM EST) POC Base Excess, Arterial -4(L) -2 - 3 mmol/L 10/17/2025 6:21 PM EST [facility] Blood, Arterial 10/17/2025 5 :42 PM EST 10/17/2025 6:21 PM EST Vani Winkler MD POINT OF CARE TEST ORDERABLE S Final Result Performing Organization Address City/[facility]/ZIP Co de Phone Number [facility] [address] [facility]. [address] * (ABNORMAL) POC HCO3 (10/17/2025 5:42 PM EST) POC HCO3, Arterial 20(L) 22 - 26 mmol/L 10/17/2025 6:21 PM EST [facility] Blood, Arterial 10/17/2025 5 :42 PM EST 10/17/2025 6:21 PM EST Vani Winkler MD POINT OF CARE TEST ORDERABLE S Final Result [facility] [address] [facility] * (ABNORMAL) POC PO2 (10/17/2025 5:42 PM EST) POC pO2, Arterial 159(H) 80 - 100 mm Hg 10/17/2025 6:21 PM EST [facility] Blood, Arterial 10/17/2025 5 :42 PM EST 10/17/2025 6:21 PM EST Vani Winkler MD POINT OF CARE TEST ORDERABLE S Final Result [facility] [address] [facility] * (ABNORMAL) POC PCO2 (10/17/2025 5:42 PM EST) POC pCO2, Arterial 33(L) 35 - 45 mm Hg 10/17/2025 6:21 PM EST [facility] Blood, Arterial 10/17/2025 5 :42 PM EST 10/17/2025 6:21 PM EST Vani Winkler MD POINT OF CARE TEST ORDERABLE S Final Result Performing Organization Address City/[facility]/ZIP Co de Phone Number [facility] [address] [facility] * POC pH (10/17/2025 5:42 PM EST) POC pH, Arterial 7.40 7.35 - 7.45 10/17/2025 6:21 PM EST [facility] Blood, Arterial 10/17/2025 5 :42 PM EST 10/17/2025 6:21 PM EST Vani Winkler MD POINT OF CARE TEST ORDERABLE S Final Result [facility] [address] [facility] * (ABNORMAL) POC INR (10/17/2025 5:37 PM EST) Prothrombin Time INR, POC 3.6(H) 0.8 - 1.4 10/18/2025 12:07 AM EST [facility] Comment: Test results may vary [...] OF CARE TEST ORDERABLE S Final Result [facility] [address] [place] [address], [facility] * Transfuse RBC (10/17/2025 5:34 PM EST) us Slade Munoz MD NURSING TREATMENT ORDERABLES - B LOOD ADMIN Final Result * Transfuse RBC (10/17/2025 5:34 PM EST) us Slade Munoz MD NURSING TREATMENT ORDERABLES - B LOOD ADMIN Final Result * Surgical Pathology Exam (10/17/2025 5:20 PM EST) Tissue LIVER STRUCTURE / Unknown 10/17/2025 5:20 PM EST Narrative [facility] - 10/17/2025 12:00 AM EST CASE: [id number] PATIENT: DAVID SERRANO Clinical History: transplant liver Pre-Operative Diagnosis: end stage liver disease Post-Operative Diagnosis: same Specimen(s) Submitted: A. [place] liver and gallbladder; B. Right lobe post perfusion liver bx; C. Left lobe post perfusion liver bx CPT Code(s): 44577 X 2; 11891 X 1; 19621 X 7 Additional Information: FINAL DIAGNOSIS: Liver and gall bladder, [place], total hepatectomy with cholecystectomy: Liver: -Cirrhosis, mild [...] with the patient's name David Serrano and [place] liver and gallbladder is a 782 gram, [...] no discrete masses or lesions are identified. [place] sections are submitted in cassettes [id number] as follows: A1: [place] gallbladder. A2: Hilar margins, en face. A3-A5: [place] right lobe. A6-A8: [place] left lobe with liver written on the side of the cassette in A8. (LAISHA Miranda/) B. Received in formalin, labeled with the patient's name David Serrano and right lobe post perfusion liver biopsy is a 1.6 cm in length x 0.1 cm in diameter red-brown tissue core, which is entirely submitted between blue biopsy sponges in cassette [id number] B1. (LAISHA Miranda/) C. Received in formalin, labeled with the patient's name Kiesha, David and left lobe post perfusion liver biopsy is a 1.3 cm in length x 0.1 cm in diameter red-brown fragmented tissue core, which is entirely submitted between blue biopsy sponges in cassette [id number] C1. (LAISHA Miranda/) Microscopic Description: Sixteen HE stained slides are [...] Pathologist signing this report is located at [facility], [address] [place] [address], [facility], , CLIA ID: [id number] Leticia Lomeli MD PATHOLOGY/CYTOLOGY ORDERABLES Final Result Performing Organization Address [facility] Co de Phone Number [facility] * Transfuse RBC (10/17/2025 5:19 PM EST) Slade Munoz MD NURSING TREATMENT ORDERABLES - B LOOD ADMIN Final Result * POC Sample Type (10/17/2025 5:00 PM EST) POC Sample Type Arterial 10/17/2025 5:03 PM EST [facility] Blood, Arterial 10/17/2025 5 :00 PM EST 10/17/2025 5:03 PM EST Vani Winkler MD POINT OF CARE TEST ORDERABLE S Final Result Performing Organization Address City/[facility] Co de Phone Number [facility] [address] [place] [address] * POC Anion Gap (10/17/2025 5:00 PM EST) POC Anion Gap, Arterial 11 3 - 16 mmol/L 10/17/2025 5:03 PM EST [facility] Blood, Arterial 10/17/2025 5 :00 PM EST 10/17/2025 5:03 PM EST Vani Winkler MD POINT OF CARE TEST ORDERABLE S Final Result [facility] [address] [facility] * POC Chloride (10/17/2025 5:00 PM EST) POC Chloride 109 98 - 110 mmol/L 10/17/2025 5:03 PM EST [facility] Blood, Arterial 10/17/2025 5 :00 PM EST 10/17/2025 5:03 PM EST Vani Winkler MD POINT OF CARE TEST ORDERABLE S Final Result Performing Organization Address City/[facility]/ZIP Co de Phone Number [facility] [address] [facility]. [address] * (ABNORMAL) POC Hemoglobin (10/17/2025 5:00 PM EST) POC Hemoglobin 7.9(L) 14.0 - 18.0 g/dL 10/17/2025 5:03 PM EST [facility] Blood, Arterial 10/17/2025 5 :00 PM EST 10/17/2025 5:03 PM EST Vani Winkler MD POINT OF CARE TEST ORDERABLE S Final Result [facility] [address] [facility] * (ABNORMAL) POC hematocrit (10/17/2025 5:00 PM EST) POC Hematocrit 23.0(L) 40 - 52 % 10/17/2025 5:03 PM EST [facility] Blood, Arterial 10/17/2025 5 :00 PM EST 10/17/2025 5:03 PM EST Vani Winkler MD POINT OF CARE TEST ORDERABLE S Final Result [facility] [address] * (ABNORMAL) POC Lactate (10/17/2025 5:00 PM EST) POC Lactate 2.68(H) 0.50 - 2.20 mmol/L 10/17/2025 5:03 PM EST [facility] Blood, Arterial 10/17/2025 5 :00 PM EST 10/17/2025 5:03 PM EST Vani Winkler MD POINT OF CARE TEST ORDERABLE S Final Result Performing Organization Address City/[facility] Co de Phone Number [facility] [address] [place] [address]. [address] * POC Glucose (10/17/2025 5:00 PM EST) POC Glucose, Arterial 96 70 - 100 mg/dL 10/17/2025 5:03 PM EST [facility] Blood, Arterial 10/17/2025 5 :00 PM EST 10/17/2025 5:03 PM EST Vani Winkler MD POINT OF CARE TEST ORDERABLE S Final Result Performing Organization Address City/[facility]/ZIP Co de Phone Number [facility] [address] * POC Ionized Calcium (10/17/2025 5:00 PM EST) POC Ionized Calcium 4.60 4.50 - 5.30 mg/dL 10/17/2025 5:03 PM EST [facility] Blood, Arterial 10/17/2025 5 :00 PM EST 10/17/2025 5:03 PM EST Vani Winkler MD POINT OF CARE TEST ORDERABLE S Final Result [facility] [address] * POC Potassium (10/17/2025 5:00 PM EST) POC Potassium 3.7 3.5 - 5.3 mmol/L 10/17/2025 5:03 PM EST [facility] Blood, Arterial 10/17/2025 5 :00 PM EST 10/17/2025 5:03 PM EST us Vani Winkler MD POINT OF CARE TEST ORDERABLE S Final Result Performing Organization Address City/[facility]/ZIP Co de Phone Number [facility] [address] * POC Sodium (10/17/2025 5:00 PM EST) POC Sodium 143 136 - 146 mmol/L 10/17/2025 5:03 PM EST [facility] Blood, Arterial 10/17/2025 5 :00 PM EST 10/17/2025 5:03 PM EST us Vani Winkler MD POINT OF CARE TEST ORDERABLE S Final Result Performing Organization Address City/[facility]/ZIP Co de Phone Number [facility] [address] [facility]. [address] * POC TCO2 (10/17/2025 5:00 PM EST) POC TCO2, Arterial 24 23 - 27 mmol/L 10/17/2025 5:03 PM EST [facility] Blood, Arterial 10/17/2025 5 :00 PM EST 10/17/2025 5:03 PM EST Vani Winkler MD POINT OF CARE TEST ORDERABLE S Final Result [facility] [address] * (ABNORMAL) POC O2 SAT (10/17/2025 5:00 PM EST) POC O2 Saturation, Arterial 100(H) 95 - 98 % 10/17/2025 5:03 PM EST [facility] Blood, Arterial 10/17/2025 5 :00 PM EST 10/17/2025 5:03 PM EST Vani Winkler MD POINT OF CARE TEST ORDERABLE S Final Result [facility] [address] [facility] * POC Base Excess (10/17/2025 5:00 PM EST) POC Base Excess, Arterial -2 -2 - 3 mmol/L 10/17/2025 5:03 PM EST [facility] Blood, Arterial 10/17/2025 5 :00 PM EST 10/17/2025 5:03 PM EST Vani Winkler MD POINT OF CARE TEST ORDERABLE S Final Result Performing Organization Address City/[facility] Co de Phone Number [facility] [address] [facility]. [address] * POC HCO3 (10/17/2025 5:00 PM EST) POC HCO3, Arterial 23 22 - 26 mmol/L 10/17/2025 5:03 PM EST [facility] Blood, Arterial 10/17/2025 5 :00 PM EST 10/17/2025 5:03 PM EST Vani Winkler MD POINT OF CARE TEST ORDERABLE S Final Result Performing Organization Address City/[facility] Co de Phone Number [facility] [address] [facility] * (ABNORMAL) POC PO2 (10/17/2025 5:00 PM EST) POC pO2, Arterial 200(H) 80 - 100 mm Hg 10/17/2025 5:03 PM EST [facility] Blood, Arterial 10/17/2025 5 :00 PM EST 10/17/2025 5:03 PM EST Vani Winkler MD POINT OF CARE TEST ORDERABLE S Final Result [facility] [address] [facility]. [address] * POC PCO2 (10/17/2025 5:00 PM EST) POC pCO2, Arterial 38 35 - 45 mm Hg 10/17/2025 5:03 PM EST [facility] Blood, Arterial 10/17/2025 5 :00 PM EST 10/17/2025 5:03 PM EST Vani Winkler MD POINT OF CARE TEST ORDERABLE S Final Result Performing Organization Address City/[facility]/ZIP Co de Phone Number [facility] [address] * POC pH (10/17/2025 5:00 PM EST) POC pH, Arterial 7.39 7.35 - 7.45 10/17/2025 5:03 PM EST [facility] Blood, Arterial 10/17/2025 5 :00 PM EST 10/17/2025 5:03 PM EST Vani Winkler MD POINT OF CARE TEST ORDERABLE S Final Result [facility] [address] [facility]. [address] * (ABNORMAL) POC INR (10/17/2025 4:59 PM EST) Prothrombin Time INR, POC 1.7(H) 0.8 - 1.4 10/18/2025 12:07 AM EST [facility] Comment: Test results may vary using [...] OF CARE TEST ORDERABLE S Final Result [facility] [address] [place] [address], [facility] * (ABNORMAL) TEG-Bypass/ECMO/Liver HN (Factor function, Platelet/Fibrin Clot Strength w/Clot Breakdown, Heparinase In All Channels) (10/17/2025 4:56 PM EST) Citrated Kaolin Reaction Time (TEGECMOLIVER) 4.7 4.6 - 9.1 minutes 10/17/2025 6:20 PM EST [facility] Citrated Kaolin W/Heparinase Reaction Time (TEGECMOLIVER) 4.7 4.3 - 8.3 minutes 10/17/2025 6:20 PM EST [facility] Citrated Kaolin Maximum Amplitude (TEGECMOLIVER) 42.4(L) 52.0 - 69.0 mm 10/17/2025 6:20 PM EST [facility] Citrated Functional Fibrinogen W/Heparinase Maximum Amplitude(TEGEC MOLIVER) 6.6(L) 15.0 - 34.0 mm 10/17/2025 6:20 PM EST [facility] Citrated Rapid Teg W/Heparinase Maximum Amplitude (TEGECMOLIVER) 39.8(L) 53.0 - 69.0 mm 10/17/2025 6:20 PM EST [facility] Citrated Kaolin w/Heparinase Percent Lysis (TEGECMOLIVER) 0.0 0.0 - 3.2 % 10/17/2025 6:20 PM EST [facility] Whole Blood (Citrate) 10/17/2025 4:56 PM EST 10/17/2025 5:06 PM EST Slade Munoz MD LAB BLOOD ORDERABLES Final Resul t Performing Organization Address City/[facility]/ZIP Co de Phone Number [facility] [address] [facility] * (ABNORMAL) Protime-INR (10/17/2025 4:56 PM EST) Protime 26.4(H) 12.1 - 15.1 seconds 10/17/2025 5:31 PM EST [facility] INR 2.3(H) 0.9 - 1.1 10/17/2025 5:31 PM EST [facility] Comment: RECOMMENDED THERAPEUTIC RANGES USING INR : Stable oral anticoagulant therapy: 2.0 - 3.0 Mechanical prosthetic heart valve: 2.5 - 3.5 Recurrent acute myocardial infarction: 2.5 - 3.5 Plasma 10/17/2025 4:56 PM EST 10/17/2025 5:06 PM EST Slade Munoz MD LAB BLOOD ORDERABLES Final Resul t Performing Organization Address [facility] Co de Phone Number [facility] [address] [facility] * (ABNORMAL) Fibrinogen (10/17/2025 4:56 PM EST) Fibrinogen 137(L) 218 - 406 mg/dL 10/17/2025 5:36 PM EST [facility] Plasma 10/17/2025 4:56 PM EST 10/17/2025 5:06 PM EST Slade Munoz MD LAB BLOOD ORDERABLES Final Resul t Performing Organization Address City/[facility] Co de Phone Number [facility] [address] [facility] * (ABNORMAL) CBC (10/17/2025 4:56 PM EST) WBC 3.9 3.8 - 10.8 10E3/uL 10/17/2025 8:25 PM EST [facility] RBC 2.67(L) 4.20 - 5.80 10E6/uL 10/17/2025 8:25 PM EST [facility] Hemoglobin 9.2(L) 13.2 - 17.1 g/dL 10/17/2025 8:25 PM EST [facility] Hematocrit 26.1(L) 38.5 - 50.0 % 10/17/2025 8:25 PM EST [facility] MCV 98.0 80.0 - 100.0 fL 10/17/2025 8:25 PM EST [facility] MCH 34.5(H) 27.0 - 33.0 pg 10/17/2025 8:25 PM EST [facility] MCHC 35.3 32.0 - 36.0 g/dL 10/17/2025 8:25 PM EST [facility] RDW 17.9(H) 11.0 - 15.0 % 10/17/2025 8:25 PM EST [facility] Platelets 64(L) 140 - 400 10E3/uL 10/17/2025 8:25 PM EST [facility] MPV 8.2 7.5 - 11.5 fL 10/17/2025 8:25 PM EST [facility] Whole Blood 10/17/2025 4:56 PM EST 10/17/2025 5:19 PM EST Slade Munoz MD LAB BLOOD ORDERABLES Final Resul t Performing Organization Address City/[facility]/ZIP Co de Phone Number [facility] [address] [facility] * (ABNORMAL) APTT, No Anticoagulant (10/17/2025 4:56 PM EST) aPTT 55.7(H) 25.5 - 35.0 seconds 10/17/2025 5:32 PM EST [facility] Plasma 10/17/2025 4:56 PM EST 10/17/2025 5:06 PM EST Slade Munoz MD LAB BLOOD ORDERABLES Final Resul t [facility] [address] * Transfuse Cryoprecipitate (10/17/2025 4:18 PM EST) Result Neto Munoz MD NURSING TREATMENT ORDERABLES - B LOOD ADMIN Final Result * Transfuse Cryoprecipitate Transfusion Rate: Per dept routine (10/17/2025 4:18 PM EST) us Slade Munoz MD NURSING TREATMENT ORDERABLES - B LOOD ADMIN Final Result Performing Organization Address [facility] de Phone Number EXTERNAL * Transfuse Cryoprecipitate Transfusion Rate: Per dept routine, 1 Units (10/17/2025 4:18 PM EST) us Slade Munoz MD NURSING TREATMENT ORDERABLES - B LOOD ADMIN Final Result Performing Organization Address [facility] de Phone Number EXTERNAL * Transfuse Platelets (10/17/2025 4:06 PM EST) us Slade Munoz MD NURSING TREATMENT ORDERABLES - B LOOD ADMIN Final Result * POC Sample Type (10/17/2025 3:59 PM EST) POC Sample Type Arterial 10/17/2025 4:01 PM EST [facility] Blood, Arterial 10/17/2025 3 :59 PM EST 10/17/2025 4:01 PM EST us Vani Winkler MD POINT OF CARE TEST ORDERABLE S Final Result Performing Organization Address [facility] Co de Phone Number [facility] [address] * POC Anion Gap (10/17/2025 3:59 PM EST) POC Anion Gap, Arterial 10 3 - 16 mmol/L 10/17/2025 4:01 PM EST [facility] Blood, Arterial 10/17/2025 3 :59 PM EST 10/17/2025 4:01 PM EST us Vani Winkler MD POINT OF CARE TEST ORDERABLE S Final Result Performing Organization Address City/[facility]/ZIP Co de Phone Number [facility] [address] * (ABNORMAL) POC Chloride (10/17/2025 3:59 PM EST) POC Chloride 111(H) 98 - 110 mmol/L 10/17/2025 4:01 PM EST [facility] Blood, Arterial 10/17/2025 3 :59 PM EST 10/17/2025 4:01 PM EST Vani Winkler MD POINT OF CARE TEST ORDERABLE S Final Result Performing Organization Address City/[facility]/ZIP Co de Phone Number [facility] [address] * (ABNORMAL) POC Hemoglobin (10/17/2025 3:59 PM EST) POC Hemoglobin 9.7(L) 14.0 - 18.0 g/dL 10/17/2025 4:01 PM EST [facility] Blood, Arterial 10/17/2025 3 :59 PM EST 10/17/2025 4:01 PM EST Vani Winkler MD POINT OF CARE TEST ORDERABLE S Final Result Performing Organization Address City/[facility]/ZIP Co de Phone Number [facility] [address] * (ABNORMAL) POC hematocrit (10/17/2025 3:59 PM EST) POC Hematocrit 29.0(L) 40 - 52 % 10/17/2025 4:01 PM EST [facility] Blood, Arterial 10/17/2025 3 :59 PM EST 10/17/2025 4:01 PM EST Vani Winkler MD POINT OF CARE TEST ORDERABLE S Final Result [facility] [address] * POC Lactate (10/17/2025 3:59 PM EST) POC Lactate 1.77 0.50 - 2.20 mmol/L 10/17/2025 4:01 PM EST [facility] Blood, Arterial 10/17/2025 3 :59 PM EST 10/17/2025 4:01 PM EST Vani Winkler MD POINT OF CARE TEST ORDERABLE S Final Result [facility] [address] [facility] * POC Glucose (10/17/2025 3:59 PM EST) POC Glucose, Arterial 81 70 - 100 mg/dL 10/17/2025 4:01 PM EST [facility] Blood, Arterial 10/17/2025 3 :59 PM EST 10/17/2025 4:01 PM EST Vani Winkler MD POINT OF CARE TEST ORDERABLE S Final Result [facility] [address] [facility] * POC Ionized Calcium (10/17/2025 3:59 PM EST) POC Ionized Calcium 4.90 4.50 - 5.30 mg/dL 10/17/2025 4:01 PM EST [facility] Blood, Arterial 10/17/2025 3 :59 PM EST 10/17/2025 4:01 PM EST Vani Winkler MD POINT OF CARE TEST ORDERABLE S Final Result [facility] [address] [facility] * POC Potassium (10/17/2025 3:59 PM EST) Pathologist [facility] POC Potassium 3.7 3.5 - 5.3 mmol/L 10/17/2025 4:01 PM EST [facility] Blood, Arterial 10/17/2025 3 :59 PM EST 10/17/2025 4:01 PM EST Vani Winkler MD POINT OF CARE TEST ORDERABLE S Final Result [facility] [address] [facility]. [address] * POC Sodium (10/17/2025 3:59 PM EST) Pathologist [facility] POC Sodium 145 136 - 146 mmol/L 10/17/2025 4:01 PM EST [facility] Blood, Arterial 10/17/2025 3 :59 PM EST 10/17/2025 4:01 PM EST Vani Winkler MD POINT OF CARE TEST ORDERABLE S Final Result [facility] [address] [facility]. [address] * POC TCO2 (10/17/2025 3:59 PM EST) Pathologist [facility] POC TCO2, Arterial 26 23 - 27 mmol/L 10/17/2025 4:01 PM EST [facility] Blood, Arterial 10/17/2025 3 :59 PM EST 10/17/2025 4:01 PM EST Vani Winkler MD POINT OF CARE TEST ORDERABLE S Final Result [facility] [address] [facility]. [address] * (ABNORMAL) POC O2 SAT (10/17/2025 3:59 PM EST) POC O2 Saturation, Arterial 100(H) 95 - 98 % 10/17/2025 4:01 PM EST [facility] Blood, Arterial 10/17/2025 3 :59 PM EST 10/17/2025 4:01 PM EST Vani Winkler MD POINT OF CARE TEST ORDERABLE S Final Result Performing Organization Address City/[facility]/ZIP Co de Phone Number [facility] [address] * POC Base Excess (10/17/2025 3:59 PM EST) POC Base Excess, Arterial -1 -2 - 3 mmol/L 10/17/2025 4:01 PM EST [facility] Blood, Arterial 10/17/2025 3 :59 PM EST 10/17/2025 4:01 PM EST Vani Winkler MD POINT OF CARE TEST ORDERABLE S Final Result Performing Organization Address [facility] Co de Phone Number [facility] [address] [facility] * POC HCO3 (10/17/2025 3:59 PM EST) POC HCO3, Arterial 24 22 - 26 mmol/L 10/17/2025 4:01 PM EST [facility] Blood, Arterial 10/17/2025 3 :59 PM EST 10/17/2025 4:01 PM EST Vani Winkler MD POINT OF CARE TEST ORDERABLE S Final Result Performing Organization Address City/[facility] Co de Phone Number [facility] [address] [facility]. [address] * (ABNORMAL) POC PO2 (10/17/2025 3:59 PM EST) POC pO2, Arterial 213(H) 80 - 100 mm Hg 10/17/2025 4:01 PM EST [facility] Blood, Arterial 10/17/2025 3 :59 PM EST 10/17/2025 4:01 PM EST Vani Winkler MD POINT OF CARE TEST ORDERABLE S Final Result [facility] [address] * POC PCO2 (10/17/2025 3:59 PM EST) POC pCO2, Arterial 45 35 - 45 mm Hg 10/17/2025 4:01 PM EST [facility] Blood, Arterial 10/17/2025 3 :59 PM EST 10/17/2025 4:01 PM EST Vani Winkler MD POINT OF CARE TEST ORDERABLE S Final Result Performing Organization Address [place]/[facility]/ZIP Co de Phone Number [facility] [address] * (ABNORMAL) POC pH (10/17/2025 3:59 PM EST) POC pH, Arterial 7.34(L) 7.35 - 7.45 10/17/2025 4:01 PM EST [facility] Blood, Arterial 10/17/2025 3 :59 PM EST 10/17/2025 4:01 PM EST Vani Winkler MD POINT OF CARE TEST ORDERABLE S Final Result [facility] [address] [facility]. [address] * (ABNORMAL) POC INR (10/17/2025 3:58 PM EST) Prothrombin Time INR, POC 2.8(H) 0.8 - 1.4 10/18/2025 12:07 AM EST [facility] Comment: Test results may vary using [...] OF CARE TEST ORDERABLE S Final Result [facility] [address] [place] [address], [facility] * Transfuse RBC (10/17/2025 3:23 PM EST) Slade Munoz MD NURSING TREATMENT ORDERABLES - B LOOD ADMIN Final Result * Transfuse RBC (10/17/2025 3:15 PM EST) Slade Munoz MD NURSING TREATMENT ORDERABLES - B LOOD ADMIN Final Result * (ABNORMAL) TEG-Bypass/ECMO/Liver HN (Factor function, Platelet/Fibrin Clot Strength w/Clot Breakdown, Heparinase In All Channels) (10/17/2025 2:55 PM EST) [facility] Citrated Kaolin Reaction Time (TEGECMOLIVER) 5.1 4.6 - 9.1 minutes 10/17/2025 4:23 PM EST [facility] Citrated Kaolin W/Heparinase Reaction Time (TEGECMOLIVER) 5.2 4.3 - 8.3 minutes 10/17/2025 4:23 PM EST [facility] Citrated Kaolin Maximum Amplitude (TEGECMOLIVER) <40.0(L) 52.0 - 69.0 mm 10/17/2025 4:23 PM EST [facility] Citrated Functional Fibrinogen W/Heparinase Maximum Amplitude(TEGEC MOLIVER) <6.0(L) 15.0 - 34.0 mm 10/17/2025 4:23 PM EST [facility] Citrated Rapid Teg W/Heparinase Maximum Amplitude (TEGECMOLIVER) 32.8(L) 53.0 - 69.0 mm 10/17/2025 4:23 PM EST [facility] Citrated Kaolin w/Heparinase Percent Lysis (TEGECMOLIVER) 0.0 0.0 - 3.2 % 10/17/2025 4:23 PM EST [facility] Whole Blood (Citrate) 10/17/2025 2:55 PM EST 10/17/2025 3:05 PM EST Slade Munoz MD LAB BLOOD ORDERABLES Final Resul t [facility] [address] * (ABNORMAL) CBC (10/17/2025 2:55 PM EST) WBC 4.4 3.8 - 10.8 10E3/uL 10/17/2025 3:20 PM EST [facility] RBC 2.90(L) 4.20 - 5.80 10E6/uL 10/17/2025 3:20 PM EST [facility] Hemoglobin 10.0(L) 13.2 - 17.1 g/dL 10/17/2025 3:20 PM EST [facility] Hematocrit 28.6(L) 38.5 - 50.0 % 10/17/2025 3:20 PM EST [facility] MCV 98.7 80.0 - 100.0 fL 10/17/2025 3:20 PM EST [facility] MCH 34.4(H) 27.0 - 33.0 pg 10/17/2025 3:20 PM EST [facility] MCHC 34.8 32.0 - 36.0 g/dL 10/17/2025 3:20 PM EST [facility] RDW 17.0(H) 11.0 - 15.0 % 10/17/2025 3:20 PM EST [facility] Platelets 53(L) 140 - 400 10E3/uL 10/17/2025 3:20 PM EST [facility] MPV 7.6 7.5 - 11.5 fL 10/17/2025 3:20 PM EST [facility] Whole Blood 10/17/2025 2:55 PM EST 10/17/2025 3:06 PM EST Slade Munoz MD LAB BLOOD ORDERABLES Final Resul t [facility] [address] * (ABNORMAL) Fibrinogen (10/17/2025 2:55 PM EST) Pathologist [facility] Fibrinogen 85(LL) 218 - 406 mg/dL 10/17/2025 3:46 PM EST [facility] Comment:The critical result was called to, and read back by, licensed caregiver CAMI GALEANO MD, AT 1545 Plasma 10/17/2025 2:55 PM EST 10/17/2025 3:06 PM EST Result [facility] Slade Munoz MD LAB BLOOD ORDERABLES Final Resul t [facility] [address] [facility]. [address] * (ABNORMAL) Protime-INR (10/17/2025 2:55 PM EST) [facility] Protime 26.5(H) 12.1 - 15.1 seconds 10/17/2025 3:30 PM EST [facility] INR 2.3(H) 0.9 - 1.1 10/17/2025 3:30 PM EST [facility] Comment: RECOMMENDED THERAPEUTIC RANGES USING INR : Stable oral anticoagulant therapy: 2.0 - 3.0 Mechanical prosthetic heart valve: 2.5 - 3.5 Recurrent acute myocardial infarction: 2.5 - 3.5 Plasma 10/17/2025 2:55 PM EST 10/17/2025 3:06 PM EST Result [facility] Slade Munoz MD LAB BLOOD ORDERABLES Final Resul t [facility] [address] [facility]. [address] * POC Sample Type (10/17/2025 2:54 PM EST) [facility] POC Sample Type Arterial 10/17/2025 3:55 PM EST [facility] Blood, Arterial 10/17/2025 2 :54 PM EST 10/17/2025 3:55 PM EST Result [facility] Vani Winkler MD POINT OF CARE TEST ORDERABLE S Final Result [facility] [address] * POC Anion Gap (10/17/2025 2:54 PM EST) POC Anion Gap, Arterial 10 3 - 16 mmol/L 10/17/2025 3:55 PM EST [facility] Blood, Arterial 10/17/2025 2 :54 PM EST 10/17/2025 3:55 PM EST Vani Winkler MD POINT OF CARE TEST ORDERABLE S Final Result Performing Organization Address [facility]/ZIP Co de Phone Number [facility] [address] [facility]. [address] * (ABNORMAL) POC Chloride (10/17/2025 2:54 PM EST) POC Chloride 112(H) 98 - 110 mmol/L 10/17/2025 3:55 PM EST [facility] Blood, Arterial 10/17/2025 2 :54 PM EST 10/17/2025 3:55 PM EST Vani Winkler MD POINT OF CARE TEST ORDERABLE S Final Result Performing Organization Address City/[facility]/ZIP Co de Phone Number [facility] [address] [facility]. [address] * (ABNORMAL) POC Hemoglobin (10/17/2025 2:54 PM EST) POC Hemoglobin 8.7(L) 14.0 - 18.0 g/dL 10/17/2025 3:55 PM EST [facility] Blood, Arterial 10/17/2025 2 :54 PM EST 10/17/2025 3:55 PM EST Vani Winkler MD POINT OF CARE TEST ORDERABLE S Final Result [facility] [address] * (ABNORMAL) POC hematocrit (10/17/2025 2:54 PM EST) POC Hematocrit 26.0(L) 40 - 52 % 10/17/2025 3:55 PM EST [facility] Blood, Arterial 10/17/2025 2 :54 PM EST 10/17/2025 3:55 PM EST Vani Winkler MD POINT OF CARE TEST ORDERABLE S Final Result [facility] [address] * POC Lactate (10/17/2025 2:54 PM EST) POC Lactate 1.23 0.50 - 2.20 mmol/L 10/17/2025 3:55 PM EST [facility] Blood, Arterial 10/17/2025 2 :54 PM EST 10/17/2025 3:55 PM EST Vani Winkler MD POINT OF CARE TEST ORDERABLE S Final Result Performing Organization Address City/[facility]/ZIP Co de Phone Number [facility] [address] * POC Glucose (10/17/2025 2:54 PM EST) POC Glucose, Arterial 74 70 - 100 mg/dL 10/17/2025 3:55 PM EST [facility] Blood, Arterial 10/17/2025 2 :54 PM EST 10/17/2025 3:55 PM EST Vani Winkler MD POINT OF CARE TEST ORDERABLE S Final Result Performing Organization Address City/[facility]/ZIP Co de Phone Number [facility] [address] [facility]. [address] * POC Ionized Calcium (10/17/2025 2:54 PM EST) POC Ionized Calcium 4.70 4.50 - 5.30 mg/dL 10/17/2025 3:55 PM EST [facility] Blood, Arterial 10/17/2025 2 :54 PM EST 10/17/2025 3:55 PM EST Vani Winkler MD POINT OF CARE TEST ORDERABLE S Final Result [facility] [address] [place] [address]. [address] * (ABNORMAL) POC Potassium (10/17/2025 2:54 PM EST) [facility] POC Potassium 3.2(L) 3.5 - 5.3 mmol/L 10/17/2025 3:55 PM EST [facility] Blood, Arterial 10/17/2025 2 :54 PM EST 10/17/2025 3:55 PM EST Vani Winkler MD POINT OF CARE TEST ORDERABLE S Final Result Performing Organization Address City/[facility]/ZIP Co de Phone Number [facility] [address] [place] [address]. [address] * POC Sodium (10/17/2025 2:54 PM EST) [facility] POC Sodium 145 136 - 146 mmol/L 10/17/2025 3:55 PM EST [facility] Blood, Arterial 10/17/2025 2 :54 PM EST 10/17/2025 3:55 PM EST Vani Winkler MD POINT OF CARE TEST ORDERABLE S Final Result Performing Organization Address City/[facility] Co de Phone Number [facility] [address] [place] [address]. [address] * POC TCO2 (10/17/2025 2:54 PM EST) Pathologist [facility] POC TCO2, Arterial 24 23 - 27 mmol/L 10/17/2025 3:55 PM EST [facility] Blood, Arterial 10/17/2025 2 :54 PM EST 10/17/2025 3:55 PM EST Vani Winkler MD POINT OF CARE TEST ORDERABLE S Final Result Performing Organization Address City/[facility]/ZIP Co de Phone Number [facility] [address] [facility]. [address] * (ABNORMAL) POC O2 SAT (10/17/2025 2:54 PM EST) POC O2 Saturation, Arterial 100(H) 95 - 98 % 10/17/2025 3:55 PM EST [facility] Blood, Arterial 10/17/2025 2 :54 PM EST 10/17/2025 3:55 PM EST Vani Winkler MD POINT OF CARE TEST ORDERABLE S Final Result Performing Organization Address City/[facility]/ZIP Co de Phone Number [facility] [address] * POC Base Excess (10/17/2025 2:54 PM EST) POC Base Excess, Arterial -2 -2 - 3 mmol/L 10/17/2025 3:55 PM EST [facility] Blood, Arterial 10/17/2025 2 :54 PM EST 10/17/2025 3:55 PM EST Vani Winkler MD POINT OF CARE TEST ORDERABLE S Final Result Performing Organization Address City/[facility]/ZIP Co de Phone Number [facility] [address] * POC HCO3 (10/17/2025 2:54 PM EST) POC HCO3, Arterial 23 22 - 26 mmol/L 10/17/2025 3:55 PM EST [facility] Blood, Arterial 10/17/2025 2 :54 PM EST 10/17/2025 3:55 PM EST Vani Winkler MD POINT OF CARE TEST ORDERABLE S Final Result Performing Organization Address City/[facility]/ZIP Co de Phone Number [facility] [address] [place] [address]. [address] * (ABNORMAL) POC PO2 (10/17/2025 2:54 PM EST) POC pO2, Arterial 179(H) 80 - 100 mm Hg 10/17/2025 3:55 PM EST [facility] Blood, Arterial 10/17/2025 2 :54 PM EST 10/17/2025 3:55 PM EST Vani Winkler MD POINT OF CARE TEST ORDERABLE S Final Result Performing Organization Address [facility] Co de Phone Number [facility] [address] [place] [address]. [address] * POC PCO2 (10/17/2025 2:54 PM EST) POC pCO2, Arterial 40 35 - 45 mm Hg 10/17/2025 3:55 PM EST [facility] Blood, Arterial 10/17/2025 2 :54 PM EST 10/17/2025 3:55 PM EST Vani Winkler MD POINT OF CARE TEST ORDERABLE S Final Result Performing Organization Address City/[facility] Co de Phone Number [facility] [address] [place] [address]. [address] * POC pH (10/17/2025 2:54 PM EST) POC pH, Arterial 7.37 7.35 - 7.45 10/17/2025 3:55 PM EST [facility] Blood, Arterial 10/17/2025 2 :54 PM EST 10/17/2025 3:55 PM EST Vani Winkler MD POINT OF CARE TEST ORDERABLE S Final Result Performing Organization Address City/[facility] Co de Phone Number [facility] [address] * (ABNORMAL) POC INR (10/17/2025 2:53 PM EST) Prothrombin Time INR, POC 2.4(H) 0.8 - 1.4 10/18/2025 12:07 AM EST [facility] Comment: Test results may vary using [...] ORDERABLE S Final Result Performing Organization Address [facility] Co de Phone Number [facility] [address] [facility]. [address] * Routine Culture plus Stain (Surgical Swab) (10/17/2025 2:50 PM EST) Gram Stain Result Rare Polymorphonuclear Leukocytes Seen [facility] Gram Stain Result No Organisms Seen; [facility] Culture Result No Growth After [address] [facility] Surgical Swab PERITONEAL FLUID / Unknown 10/17/2025 2:50 PM EST Comment:1. Ascites-anaerobic , aerobic, and fungal Narrative [facility] - 10/20/2025 11:09 AM EST 1. Ascites-anaerobic, aerobic, and fungal 1. Ascites-anaerobic, aerobic, and fungal Vani Winkler MD MICROBIOLOGY - GENERAL ORDER MARYA Final Result Performing Organization Address City/[facility] Co de Phone Number [facility] [address] * Anaerobic culture (Surgical Swab) (10/17/2025 2:50 PM EST) Culture Result No Anaerobes Isolated in [address] [facility] Surgical Swab PERITONEAL FLUID / Unknown 10/17/2025 2:50 PM EST Comment:1. Ascites-anaerobic , aerobic, and fungal Narrative [facility] - 10/22/2025 11:32 AM EST 1. Ascites-anaerobic, aerobic, and fungal 1. Ascites-anaerobic, aerobic, and fungal us Vani Winkler MD MICROBIOLOGY - GENERAL ORDER MARYA Final Result [facility] [address] [place] [address], [facility] * (ABNORMAL) TEG-Standard Global Hemostasis (Rapid TEG with Heparin Effect, Contains a Baseline TEG) (10/17/2025 10:19 AM EST) Citrated Kaolin Reaction Time (TEGHEPARINASE) 7.2 4.6 - 9.1 minutes 10/17/2025 11:27 AM EST [facility] Citrated Rapid Teg Maximum Amplitude (TEGHEPARINASE) <40.0(L) 52.0 - 70.0 mm 10/17/2025 11:27 AM EST [facility] Citrated Functional Fibrinogen Maximum Amplitude (TEGHEPARINASE) 5.8(L) 15.0 - 32.0 mm 10/17/2025 11:27 AM EST [facility] Citrated Kaolin W/Heparinase Reaction Time (TEGHEPARINASE) 6.7 4.3 - 8.3 minutes 10/17/2025 11:27 AM EST [facility] Citrated Kaolin K-Time (TEGHEPARINASE) 2.9(H) 0.8 - 2.1 minutes 10/17/2025 11:27 AM EST [facility] Citrated Kaolin Angle (TEGHEPARINASE) 64.4 63.0 - 78.0 degrees 10/17/2025 11:27 AM EST [facility] Citrated Kaolin Maximum Amplitude (TEGHEPARINASE) <40.0(L) 52.0 - 69.0 mm 10/17/2025 11:27 AM EST [facility] Citrated Functional Fibrinogen- Fibrinogen Level (TEGHEPARINASE) 156.5(L) 278.0 - 581.0 mg/dL 10/17/2025 11:27 AM EST [facility] Whole Blood (Citrate) 10/17/2025 10:19 AM EST 10/17/2025 10:46 AM EST [facility] LAB BLOOD ORDERABLES Final Re sult Performing Organization Address [facility] Co de Phone Number [facility] [address] [facility]. [address] * Hepatitis C RNA, Quant Reflex to Genotyp (10/17/2025 10:19 AM EST) International Units Not Detected IU/mL 10/19/2025 2:12 PM EST [facility] Comment:Test methodology for HCV RNA quantification is an FDA-approved nucleic acid amplification assay. The Lower Limit of Quantitation (LLOQ) is 15 IU/mL. The linear range of the assay is 15-100,000,000 IU/mL. The Limit of Detection (LoD) is 12.0 IU/mL for EDTA plasma. The reference range is Not Detected. IU log10 See Note log 10 IU/mL 10/19/2025 2:12 PM EST [facility] Comment:HCV RNA not detected . Plasma 10/17/2025 10:1 9 AM EST 10/17/2025 11:09 AM EST [facility] [place] [facility] BLOOD ORDERABLES Final Re sult Performing Organization Address [facility] Co de Phone Number [facility] [address] [facility]. [address] * (ABNORMAL) APTT, No Anticoagulant (10/17/2025 10:19 AM EST) aPTT 41.2(H) 25.5 - 35.0 seconds 10/17/2025 11:02 AM EST [facility] Plasma 10/17/2025 10:1 9 AM EST 10/17/2025 10:46 AM EST [facility] BLOOD ORDERABLES Final Re sult [facility] [address] [facility]. [address] * (ABNORMAL) Fibrinogen (10/17/2025 10:19 AM EST) Pathologist [facility] Fibrinogen 116(L) 218 - 406 mg/dL 10/17/2025 11:08 AM EST [facility] Plasma 10/17/2025 10:1 9 AM EST 10/17/2025 10:46 AM EST [facility] LAB BLOOD ORDERABLES Final Re sult [facility] [address] [facility]. [address] * Magnesium, STAT (10/17/2025 10:18 AM EST) Pathologist [facility] Magnesium 1.7 1.5 - 2.5 mg/dL 10/17/2025 11:46 AM EST [facility] Plasma 10/17/2025 10:1 8 AM EST 10/17/2025 10:46 AM EST [facility] LAB BLOOD ORDERABLES Final Re sult Performing Organization Address City/[facility]/ZIP Co de Phone Number [facility] [address] [facility]. [address] * (ABNORMAL) Jose-Mims Virus VCA IgG Ab (10/17/2025 10:18 AM EST) Pathologist [facility] EBV VCA IgG Positive( A) Negative 10/17/2025 12:18 PM EST [facility] Comment:Presence of detectab le VCA IgG antibodies. A positive result indicates current or past exposure to Jose-Mims virus. EBV IGG NUM >750.00(H ) 0.00 - 17.99 U/mL 10/17/2025 12:18 PM EST [facility] Serum 10/17/2025 10:1 8 AM EST 10/17/2025 10:46 AM EST [facility] LAB BLOOD ORDERABLES Final Re sult [facility] [address] * CMV IgG Antibody (10/17/2025 10:18 AM EST) CMV IgG Negative Negative 10/17/2025 12:16 PM EST [facility] CMV IGG NUM <0.20 0.00 - 0.59 U/mL 10/17/2025 12:16 PM EST [facility] Serum 10/17/2025 10:1 8 AM EST 10/17/2025 10:46 AM EST [facility] LAB BLOOD ORDERABLES Final Re sult Performing Organization Address City/[facility] Co de Phone Number [facility] [address] [facility]. [address] * HIV 1+2 Antibody/Antigen with Reflex (10/17/2025 10:18 AM EST) HIV 1+2 AB/AGN Nonreactive Nonreactive 10/17/2025 12:16 PM EST [facility] Serum 10/17/2025 10:1 8 AM EST 10/17/2025 10:46 AM EST Narrative [facility] - 10/17/2025 12:16 PM EST \HIVRNR [facility] [place] LAB BLOOD ORDERABLES Final Re sult [facility] [address] * Hepatitis B Core Antibody (10/17/2025 10:18 AM EST) Hep B Core Total Ab Nonreactive Nonreactive 10/17/2025 12:17 PM EST [facility] Comment:Health Department no tified in accordance with reportable infectious disease guidelines. Serum 10/17/2025 10:1 8 AM EST 10/17/2025 10:46 AM EST [facility] - 10/17/2025 12:17 PM EST A nonreactive final interpretation indicates that anti-HBc antibodies were not detected in the sample; it is possible that the individual is not infected with HBV. [facility] BLOOD ORDERABLES Final Re sult Performing Organization Address [facility]/ZIP Co de Phone Number [facility] [address] [facility]. [address] * Hepatitis C Antibody (10/17/2025 10:18 AM EST) HCV Ab Nonreactive Nonreactive 10/17/2025 12:25 PM EST [facility] Comment:Health Department no tified in accordance with reportable infectious disease guidelines. Serum 10/17/2025 10:1 8 AM EST 10/17/2025 10:46 AM EST [facility] - 10/17/2025 12:25 PM EST Antibodies to HCV not detected; does not exclude the possibility of exposure to HCV. [facility] BLOOD ORDERABLES Final Re sult Performing Organization Address [facility] Co de Phone Number [facility] [address] [facility]. [address] * (ABNORMAL) Hepatitis B Surface Antibody, Quantitati (10/17/2025 10:18 AM EST) Hep B S Ab Reactive( A) Nonreactive 10/17/2025 12:29 PM EST [facility] HBSAB NUMBER 260.00(H) 0.00 - 7.99 mIU/mL 10/17/2025 12:29 PM EST [facility] Serum 10/17/2025 10:1 8 AM EST 10/17/2025 10:46 AM EST [facility] - 10/17/2025 12:29 PM EST Individual is considered immune to HBV infection. [facility] BLOOD ORDERABLES Final Re sult [facility] [address] [facility] * Hepatitis B surface antigen (10/17/2025 10:18 AM EST) Hep B Surface Ag Nonreactive Nonreactive 10/17/2025 12:21 PM EST [facility] Comment:Health Department no tified in accordance with reportable infectious disease guidelines. Serum 10/17/2025 10:1 8 AM EST 10/17/2025 10:46 AM EST Narrative [facility] - 10/17/2025 12:21 PM EST Specimen is considered negative for HBsAg. [facility] LAB BLOOD ORDERABLES Final Re sult [facility] [address] [facility] * Hepatitis A Antibody Total (10/17/2025 10:18 AM EST) Anti-HAV Total (IgG + IgM) Reactive 10/17/2025 12:22 PM EST [facility] Serum 10/17/2025 10:1 8 AM EST 10/17/2025 10:46 AM EST [facility] - 10/17/2025 12:22 PM EST HAV antibodies detected [facility] LAB BLOOD ORDERABLES Final Re sult [facility] [address] [facility] * Vitamin D 25 Hydroxy (10/17/2025 10:18 AM EST) Vit D, 25-Hydroxy 39.3 30.0 - 100.0 ng/mL 10/17/2025 12:15 PM EST [facility] Comment: Vitamin D deficiency has been defined by the [place] [employer] (IOM) and an Endocrine Society practice guideline as a level of serum 25-OH Vitamin D less than 20 ng/mL. The Endocrine Society went on to further define Vitamin D insufficiency as a level between 21-29 ng/mL. 1) IOM. 2011 Dietary reference intakes for calcium and D. Espinoza D.C: The National Academies Press 2) Ariadna MF, Priya NC, Taniya GALE, et al. Evaluation, treatment, and prevention of Vitamin D deficiency: an Endocrine Society clinical practice guideline. JCEM. 2010; 967):1911-30. Serum 10/17/2025 10:1 8 AM EST 10/17/2025 10:46 AM EST [facility] LAB BLOOD ORDERABLES Final Re sult [facility] [address] [facility]. [address] * Antibody Screen (10/17/2025 10:18 AM EST) Antibody Screen Negative 10/17/2025 11:09 AM EST [facility] Blood 10/17/2025 10:1 8 AM EST 10/17/2025 10:26 AM EST Narrative [facility] - 10/17/2025 11:17 AM EST Testing performed by [facility] Transfusion Service Kassi Inman [place] BLOOD BANK TEST ORDERABLES Fi nal Result [facility] [address] * ABO/Rh (10/17/2025 10:18 AM EST) ABO Grouping A 10/17/2025 10:53 AM EST [facility] Rh Type Positive 10/17/2025 10:53 AM EST [facility] Blood 10/17/2025 10:1 8 AM EST 10/17/2025 10:26 AM EST Kassi Inman [place] BLOOD BANK TEST ORDERABLES Fi nal Result [facility] [address] [place] [facility]. [address] * (ABNORMAL) Hepatic Function Panel (10/17/2025 10:18 AM EST) Total Bilirubin 4.9(H) 0.0 - 1.5 mg/dL 10/17/2025 11:47 AM EST [facility] Bilirubin, Direct 1.35(H) 0.00 - 0.40 mg/dL 10/17/2025 11:47 AM EST [facility] AST 39 13 - 39 U/L 10/17/2025 11:47 AM EST [facility] ALT 27 7 - 52 U/L 10/17/2025 11:47 AM EST [facility] Alkaline Phosphatase 143(H) 36 - 125 U/L 10/17/2025 11:47 AM EST [facility] Total Protein 6.5 6.4 - 8.9 g/dL 10/17/2025 11:47 AM EST [facility] Albumin 2.3(L) 3.5 - 5.7 g/dL 10/17/2025 11:47 AM EST [facility] Bilirubin, Indirect 3.55(H) 0.00 - 1.10 mg/dL 10/17/2025 11:47 AM EST [facility] Plasma 10/17/2025 10:1 8 AM EST 10/17/2025 10:46 AM EST [facility] LAB BLOOD ORDERABLES Final Re sult [facility] [address] * (ABNORMAL) Renal Function Panel w/EGFR (10/17/2025 10:18 AM EST) Sodium 141 133 - 146 mmol/L 10/17/2025 11:47 AM EST [facility] Potassium 3.3(L) 3.5 - 5.3 mmol/L 10/17/2025 11:47 AM EST [facility] Chloride 110 98 - 110 mmol/L 10/17/2025 11:47 AM EST [facility] CO2 29 21 - 33 mmol/L 10/17/2025 11:47 AM EST [facility] Comment:High lactate dehydro genase concentrations in patient samples may cause falsely increased bicarbonate results. If markedly elevated LDH is observed or suspected, please assess results in conjunction with patient`s clinical presentation. In cases of discrepant results, consider evaluating CO2 in with a blood gas order. Anion Gap 2(L) 3 - 16 mmol/L 10/17/2025 11:47 AM EST [facility] BUN 13 7 - 25 mg/dL 10/17/2025 11:47 AM EST [facility] Creatinine 0.81 0.60 - 1.30 mg/dL 10/17/2025 11:47 AM EST [facility] Glucose 81 70 - 100 mg/dL 10/17/2025 11:47 AM EST [facility] Calcium 8.1(L) 8.6 - 10.3 mg/dL 10/17/2025 11:47 AM EST [facility] Phosphorus 2.8 2.1 - 4.7 mg/dL 10/17/2025 11:47 AM EST [facility] Albumin 2.3(L) 3.5 - 5.7 g/dL 10/17/2025 11:47 AM EST [facility] Osmolality, Calculated 291 278 - 305 mOsm/kg 10/17/2025 11:47 AM EST [facility] EGFR >90 10/17/2025 11:47 AM EST [facility] Comment: As of 2022, [...] 8 AM EST 10/17/2025 10:46 AM EST [facility] [place] [facility]LES Final Re sult Performing Organization Address [facility]/ZIP Co de Phone Number [facility] [address] [facility]. [address] * Hemoglobin A1C (10/17/2025 10:18 AM EST) Hemoglobin A1C 4.0 4.0 - 5.6 % 10/17/2025 1:42 PM EST [facility] Comment: Hemoglobin A1c Interpretation [...] ORDERABLES Final Re sult Performing Organization Address City/[facility] Co de Phone Number [facility] [address] [facility]. [address] * (ABNORMAL) Venous Blood Gas, Line/Syringe, STAT (10/17/2025 10:18 AM EST) PH-Line Draw 7.37 7.32 - 7.42 10/17/2025 10:27 AM EST [facility] PCO2-Line Draw 46 41 - 51 mm Hg 10/17/2025 10:27 AM EST [facility] PO2-Line Draw 29 25 - 40 mm Hg 10/17/2025 10:27 AM EST [facility] HCO3-Line Draw 24 24 - 28 mmol/L 10/17/2025 10:27 AM EST [facility] CO2 Content-Line Draw 28 25 - 29 mmol/L 10/17/2025 10:27 AM EST [facility] Base Excess-Line Draw 0.9 -2.0 - 3.0 mmol/L 10/17/2025 10:27 AM EST [facility] %HBO2-Line Draw 38.5(L) 40.0 - 70.0 % 10/17/2025 10:27 AM EST [facility] Carboxyhgb-Rebecca e Draw 1.4 0.0 - 2.0 % 10/17/2025 10:27 AM EST [facility] Comment: CARBOXYHEMOGLOBIN (CO) REFERENCE RANGES: Non-Smokers: <2 % Smokers: <8 % TOXIC: >20 % Methemoglobin- Line Draw 0.6 0.0 - 1.5 % 10/17/2025 10:27 AM EST [facility] Blood, Venous 10/17/2025 10: 18 AM EST 10/17/2025 10:24 AM EST [facility] BLOOD ORDERABLES Final Re sult [facility] [address] * (ABNORMAL) Protime-INR (10/17/2025 10:18 AM EST) Protime 21.7(H) 12.1 - 15.1 seconds 10/17/2025 11:01 AM EST [facility] INR 1.8(H) 0.9 - 1.1 10/17/2025 11:01 AM EST [facility] Comment: RECOMMENDED THERAPEUTIC RANGES USING INR : Stable oral anticoagulant therapy: 2.0 - 3.0 Mechanical prosthetic heart valve: 2.5 - 3.5 Recurrent acute myocardial infarction: 2.5 - 3.5 Plasma 10/17/2025 10:1 8 AM EST 10/17/2025 10:46 AM EST [facility] BLOOD ORDERABLES Final Re sult [facility] [address] [place] * (ABNORMAL) Differential (10/17/2025 10:18 AM EST) Neutrophils Relative 45.0 40.0 - 80.0 % 10/17/2025 10:59 AM EST [facility] Lymphocytes Relative 34.7 15.0 - 45.0 % 10/17/2025 10:59 AM EST [facility] Monocytes Relative 12.9(H) 0.0 - 12.0 % 10/17/2025 10:59 AM EST [facility] Eosinophils Relative 6.4 0.0 - 8.0 % 10/17/2025 10:59 AM EST [facility] Basophils Relative 1.0 0.0 - 1.0 % 10/17/2025 10:59 AM EST [facility] nRBC 0 0 - 0 /100 WBC 10/17/2025 10:59 AM EST [facility] Neutrophils Absolute 1,845 1,520 - 8,640 /uL 10/17/2025 10:59 AM EST [facility] Lymphocytes Absolute 1,423 570 - 4,860 /uL 10/17/2025 10:59 AM EST [facility] Monocytes Absolute 529 0 - 1,296 /uL 10/17/2025 10:59 AM EST [facility] Eosinophils Absolute 262 0 - 864 /uL 10/17/2025 10:59 AM EST [facility] Basophils Absolute 41 0 - 108 /uL 10/17/2025 10:59 AM EST [facility] Whole Blood 10/17/2025 10:1 8 AM EST 10/17/2025 10:46 AM EST us [facility] LAB BLOOD ORDERABLES Final Re sult [facility] [place] [address], [facility] * (ABNORMAL) CBC (10/17/2025 10:18 AM EST) WBC 4.1 3.8 - 10.8 10E3/uL 10/17/2025 10:59 AM EST [facility] RBC 3.32(L) 4.20 - 5.80 10E6/uL 10/17/2025 10:59 AM EST [facility] Hemoglobin 11.2(L) 13.2 - 17.1 g/dL 10/17/2025 10:59 AM EST [facility] Hematocrit 32.9(L) 38.5 - 50.0 % 10/17/2025 10:59 AM EST [facility] MCV 99.1 80.0 - 100.0 fL 10/17/2025 10:59 AM EST [facility] MCH 33.8(H) 27.0 - 33.0 pg 10/17/2025 10:59 AM EST [facility] MCHC 34.1 32.0 - 36.0 g/dL 10/17/2025 10:59 AM EST [facility] RDW 17.3(H) 11.0 - 15.0 % 10/17/2025 10:59 AM EST [facility] Platelets 61(L) 140 - 400 10E3/uL 10/17/2025 10:59 AM EST [facility] MPV 8.2 7.5 - 11.5 fL 10/17/2025 10:59 AM EST [facility] Whole Blood 10/17/2025 10:1 8 AM EST 10/17/2025 10:46 AM EST [facility] BLOOD ORDERABLES Final Re sult [facility] [address] * Toxoplasma gondii Antibody, IgG (10/17/2025 10:18 AM EST) Toxoplasma Gondii IgG <3.0 0.0 - 7.1 IU/mL 10/18/2025 4:54 AM EST [facility] Comment: Negative <7.2 Equivocal 7.2 - 8.7 Positive >8.7 Serum 10/17/2025 10:1 8 AM EST 10/18/2025 5:06 AM EST Narrative [facility] - 10/18/2025 5:06 AM EST PERFORMED AT: [address], [place] [id number] INSPECTOR FILTERS: Mateo Miller, PhD PHONE: [phone] [facility] BLOOD ORDERABLES Final Re sult [facility] [address] [place] [address], [facility] * X-ray Portable Chest (10/17/2025 [...] (CMS-HCC)- Primary End stage liver disease (CMS-HCC) Immunosuppression ([facility]-HCC) documented in this encounter Administered Medications Inactive Administered Medications - up to 3 most recent administrations Medication Order MAR Action Action Date Dose Rate Site acetaminophen (TYLENOL) tablet 975 mg 975 mg, Oral, Every 8 hours, First dose on Wed10/20/25 at 0730 Given 10/22/2025 8:42 AM EST [...] in sodium chloride 0.9% 100 mL IVPB ([id number]) 1 g, Intravenous, at 200 mL/hr, Every 6 hours, First dose on Wed10/17/25 at 2300, For 7 doses, Dosage may need to be adjusted for renal dysfunction. Full dose is 1g IV q6h Use [id number] Adapter - Mix Thoroughly Before Administration, Post-op New Bag 10/19/2025 8:56 AM EST 1 g 200 mL/ hr New Bag 10/19/2025 3:29 AM EST 1 g 200 mL/hr New Bag 10/18/2025 8:39 PM EST 1 g 200 mL/hr calcium gluconate in sodium chloride, iso-osm 2 gram/100 mL IV solution 2 g 2 g, Intravenous, at 100 mL/hr, Every hour, First dose on Wed10/22/25 at 0800, For 3 doses, Infuse a total of 6 grams over 3 hours via Peripheral Line Access OR Central Line Access. New Bag 10/22/2025 12:20 PM EST 2 g 100 mL/hr New Bag 10/22/2025 11:13 AM EST 2 g 100 [...] patient is non-communicative (CPOT 3-5), Starting on Maris 10/18/25 at 0841, For 48 hours, If on [...] day, First dose on 10/20/25 at 1300 Given 10/22/2025 8:43 AM EST [...] 40 mEq, Oral, Once, On 10/22/25 at 0630, For 1 dose, FOR PATIENTS [...] 30 mg 30 mg, Oral, Once, On 10/23/25 at 0900, For 1 dose, POD #6 predniSONE (DELTASONE) tablet 40 mg 40 mg, Oral, Once, On 10/22/25 at 0900, For 1 dose, POD #5 [...] paralyzed: Do not titrate - follow policy [id number]. Start infusion if unable to maintain goal [...] Wed10/21/25 at 0900, LEVEL 2 HAZARDOUS MEDICATION Given 10/22/2025 9:48 AM EST 3 mg Given 10/21/2025 8:02 PM EST 3 mg Given 10/21/2025 8:20 AM EST 3 mg vasopressin (VASOSTRICT) 40 units in sodium chloride 0.9% 100 mL infusion Intravenous, at 4.5 mL/hr, Continuous, Starting on Wed10/17/25 at 2330, [employer]ED Associate Infusion Pump 10/18/2025 7:02 AM EST 0.03 Units/min 4.5 mL/supervisor shrimp pond Infusion Pump 10/17/2025 10:54 PM EST 0.03 Units /min 4.5 mL/hr documented in this encounter Active and Recently Administered Medications Times are shown in EST. Scheduled Medication Order 10/20/2025 10/21/2025 10/22/2025 acetaminophen (TYLENOL) tablet 975 mg 975 mg, Oral, Every 8 hours, First dose on Wed10/20/25 at 0730 0933 (Given - Provider: Stacy [...] woke up!) 0842 (Given - Provider: Charbel Ji, SILVIO)1601 (Not Given - Provider: Charbel Ji RN [...] [place] RN) 0843 (Given - Provider: Charbel Ji, SILVIO)1320 (Not Given - Provider: Charbel Ji RN [...] immediately. MIX THOROUGHLY PRIOR TO ADMINISTRATION., Post-op 0938 (Given - Provider: Stacy Zamorano RN) mycophenolate (CELLCEPT) capsule 500 mg 500 mg, Oral, 2 times daily, First dose on 10/20/25 at 0930, LEVEL 2 HAZARDOUS MEDICATION 0933 (Given - Provider: Stacy Zamorano RN)2013 (Given - Provider: Anne Vail RN) 0820 (Given - Provider: Stacy Zamorano RN)2001 (Given - Provider: Anne Vail RN) 0843 (Given - Provider: Charbel Ji RN) NIFEdipine (PROCARDIA-XL) 24 hr tablet 30 mg 30 mg, Oral, Daily, First dose on 10/22/25 at 1300, DO NOT CRUSH 1348 (Given - Provider: Charbel Ji, SILVIO) pantoprazole (PROTONIX) EC tablet 40 mg 40 mg, Oral, Daily6, First dose on 10/21/25 at 0600, Do Not Crush 0628 (Given - Provider: Anne Vail, SILVIO) 0544 (Given - Provider: Anne Vail RN) [...] Group 1) 30 mg, Oral, Once, On Tu10/23/25 at [...] Stacy Zamorano RN)1116 (Given - Provider: Stacy Zamorano RN)1231 (Given - Provider: Stacy Zamorano RN) [...] RN) 0820 (Given - Provider: Stacy Zamorano, SILVIO) 0842 (Given - Provider: Charbel Ji, RN) tacrolimus (PROGRAF) capsule 2 mg (COMPLETED) 2 mg, Oral, Once, On Wed10/20/25 at 2100, For 1 dose, LEVEL 2 HAZARDOUS MEDICATION 2013 (Given - Provider: Anne Vail RN) tacrolimus (PROGRAF) capsule 3 mg (CANCELED) 3 mg, Oral, 2 times daily, First dose (after last modification) on Wed10/19/25 at 2100, LEVEL 2 HAZARDOUS MEDICATION 0933 (Given - Provider: Stacy Zamorano, SILVIO) tacrolimus (PROGRAF) capsule 3 mg 3 mg, Oral, 2 times daily, First dose (after last modification) on Wed10/21/25 at 0900, LEVEL 2 HAZARDOUS MEDICATION 0820 (Given - Provider: Stacy Zamorano, SILVIO)2001 (Given - Provider: Anne Vail RN) 0948 (Given - Provider: Charbel Ji, SILVIO) PRN Medication Order 10/20/2025 10/21/2025 10/22/2025 dextrose [...] documented as of this encounter Care Teams News Video Editor Relationship Specialty Start Date End Date System, Provider Not In PCP - General 09/10/25 10/24/25 documented as of this encounter
--- OUTSIDE RECORDS SUMMARY | 2025-10-17 12:00 | XMS_ITS | Encounter Summary ---
Author Organization [facility] Address [address] [place] [address] Care Team Providers Care Heel Slicker Name Role Phone System, Provider Not In [...] release of HIV test results or diagnoses. UHN2131.24 Health Reason for Visit * Auth/Cert (Routine) Specialty Diagnoses / Procedures Referred By Contru t Referred To Contact Diagnoses TRANSPLANT LIVER Procedures TRANSPLANT LIVER [facility] [address] [place] [address] Phone: tel: Referral ID Status Reason Start Date Expiration Date Visits Re quested Visits Authorized [id number] 1 1 Encounter Details Date Type Department Care Team (Late st Contact Info) Description 10/17/2025 12:00 PM EST - 10/17/2025 8:[address] [facility] [address] [place] [address] Vani Winkler MD [facility] Liver/[place] [id number] TRANSPLANT LIVER Surgery Details Date/Time Status Location [...] Clicks Question Answer Date of Assessment Author SLOAN Score - Performed/Achieved 8 Walks 250 feet or more 10/22/2025 12:09 PM Jen Radford PT * Mobility: AM-PAC/-[facility] Question Answer Date of Assessment Author AM-PAC Mobility Score 17 10/22/2025 12:00 PM Charbel Cheatham RN Translation to [facility] 5 10/22/2025 12:00 PM Charbel Cheatham RN [facility] Score - Performed/Achieved Goal (Y/N) No 10/22/2025 12:00 PM Charbel Cheatham RN Early Mobility/Exercise Safety Screen (Med/Surg) Proceed with mobilization - No exclusion criteria met 10/22/2025 12:00 PM Charbel Cheatham RN Early Mobility/Exercise Safety Screen (ICU) Proceed with mobilization - No exclusion criteria met 10/22/2025 12:00 PM Charbel Cheatham RN Goal -[facility] 5 Standing (1 or mor e minutes) 10/22/2025 12:00 PM Charbel Cheatham RN * Mobility Question Answer Date of Assessment Author Anti-Embolism Devices Bilateral;Sequenti al compression devices, below knee 10/22/2025 12:00 PM Charbel Cheatham RN Anti-Embolism Intervention Off 10/22/2025 12:00 PM Charbel Cheatham RN documented as of this encounter Discharge Summaries * LAISHA Hernandez - 10/22/2025 1:32 PM EST [facility] Inpatient Discharge Summary Patient: David Serrano Age: 65 y.o. CSN: [id number] Date of Admission: 10/17/2025 Date of Discharge: 10/22/2025 Attending Physician: Lane rToy MD Primary Care Physician: PROVIDER NOT IN [...] Case IDs Date Procedure Surgeon Location Status [id number] 10/17/25 TRANSPLANT LIVER Vani Winkler MD OR Comp Lines and tubes: Patient Lines/Drains/Airways Status Active LDAs None Other Procedures / Pertinent Imaging: See Imaging Tab Consulting Services (include reason) SICU PT/OT [place] Allergies Allergies[1] Discharge Medications Medication List TAKE [...] scale: Blood glucose 150-199 mg/dL =1units, Blood dvlipwn203-509 mg/dL =2 units, Blood glucose 250-299 mg/dL [...] These medications were sent to [facility] [address] [place] [address] Hours: Wednesday - Wednesday: 8:00AM - 6:00PM [...] prn. Discharged on a bowel regimenas needed. [facility] - [facility] evaluated patient and recommended home PT/OT. ENDO - A1C is 4.0. Pt was not on diabetic regimen prior to arrival. Patient developed steroid-induced hyperglycemia 2/2 steroid regimen. Discharged home on the following regimen: LDSSI. Patient met w/ clinical educator prior to discharge. HEME - Post-operatively, [...] home care (to start 10/29 due to [facility] staffing, outpatient labs this week). Labs to be drawn qMon/Thurs. Patient and family received post-transplant education from house coordinator as well as medication teaching from [...] Plus- clear thickened, gelatin high protein ([facility] only) As listed above 4. Discharge specific orders: None required 5. Core measures followed: (if this is a core measure patient) Discharge Weight: 220 lb (99.8 kg) Disposition Home with assistance Home with supervision Home with Home Health Follow-Up Appointments Future Appointments Date Time Provider Department Center 10/30/2025 9:00 AM LTRA SURGERY, [facility] [address] [facility] [address] Signed: LAISHA HERNANDEZ 10/22/2025, 1:32 PM [1] [...] Zimmerman RN - 10/22/2025 12:26 PM EST Health Care Management Discharge Summary Patient name: David Serrano Patient : 1960 Age: 65 y.o. Gender: male Patient emergency contact: Extended Emergency Contact Information Primary Emergency Contact: Stacy Serrano Address: [address] [place] [address] Mobile Relation: Spouse Attending provider: Vani Winkler MD Primary care physician: PROVIDER NOT IN SYSTEM The MD has indicated that the patient is ready for discharge. David Serrano was referred and accepted at [facility] ([phone]) for PT/OT and SN (lab draws) . [...] Services at Home post discharge: Home Health [facility] Name/Phone # post discharge: formerly [facility] ([phone]) Home Health Services Types at Discharge: PT/OT/JIG BORER, Jail (nursing home for lab draws.) Citlaly Zimmerman RN/CM [phone] documented in this encounter Discharge Instructions * [...] kept under 2 gm/day. Please discuss withyour retail marketing coordinator if you have any question about appropriate dose to take. Other Instructions: Call post-liver transplant clinic with questions [phone] or call [facility] at [phone] and ask for the liver house coordinator customer retention representative if you experience any of the following: [...] Date and time as instructed by your house coordinator in liver transplant clinic in [facility], 3rd floor or Video Visit. PLEASE GET [...] Immunosuppression schedule as per Education Note by house coordinator earlier this admission. Reviewed discharge medications [...] in clinic? (If significant deficits, communicate with house coordinator): Standard continual education Future medications to [...] Cori Womack PharmD Solid Organ Transplant Clinical Psychiatric Clinician Contact via [employer] Secure Chat * Cori Womack PharmD - [...] Cori Womack PharmD Solid Organ Transplant Clinical Psychiatric Clinician Contact via [employer] Secure Chat * Jen Mckeon, PT - 10/22/2025 12:10 PM EST Physical Therapy Treatment Name: David Serrano : 1960 Attending Physician: Vani Winkler MD Admission Diagnosis: TRANSPLANT LIVER Date: 10/22/2025 Room: [place] [address]/[place] [address] Reviewed Pertinent hospital course: Yes Hospital Course [...] Surgery Progress Note Name: David Serrano CSN: [id number] Date: 10/22/2025 7:07 AM OR Date: 10/17/2025 [...] discharge LETICIA LOMELI MD Transplant Surgery 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 Surgery Resident Cosigned by Vani Winkler [...] Surgery Progress Note Name: David Serrano CSN: [id number] Date: 10/20/2025 6:42 AM OR Date: 10/17/2025 [...] Date 10/19/25 0700 - 10/20/25 0659 10/20/25 07 - 10/21/25 0659 Shift 4483-2434 4562-6565 5981-7409 24 Hour Total 1481-6746 5951-2535 3871-4186 24 Hour Total INTAKE P.O. 100 100 P.O. 100 100 I.V.(mL/kg) 552.9(5.5) 552.9(5.5) Volume (mL) Insulin 7.4 7.4 Volume (mL) (electrolyte-R (pH 7.4) (NORMOSOL-R pH 7.4) IV solution) 545.5 545.5 NG/GT 30 30 Flushes (mL) ([REMOVED] NG/OG Tube Nasogastric Right nostril) 30 30 IV Piggyback 150.3 150.3 Volume (mL) (AMPicillin 1 g in sodium chloride 0.9% 100 mL IVPB (Uxov6Blx)) 100 100 Volume (mL) (mycophenolate (CELLCEPT) 500 [...] 20* 17* Recent Labs 10/18/25221910/19/25 0829 10/19/25 2303 NA 146 145 144 [...] this interval not displayed. Recent Labs 10/18/25221910/19/25 0829 10/19/25 2303 AST 717* 450* 223* [...] today LETICIA LOMELI MD Transplant Surgery [facility] Surgery Resident Cosigned by Vani Winkler [...] Caprini Risk Score of [address] [facility] transplant protocol, I recommend discharging on heparin 5,000 units subcutaneously q8h (facility) or Eliquis 2.5 mg PO BID (home) for 30 days total. Endof chemoprophylaxis: 11/17/25. Cori Womack PharmD Solid Organ Transplant Clinical Psychiatric Clinician Contact via [employer] Secure Chat * Leticia Lomeli MD - 10/19/2025 12:10 PM EST Transplant Surgery Progress Note Name: David Serrano CSN: [id number] Date: 10/19/2025 12:10 PM OR Date: 10/17/2025 [...] Date 10/18/25 0700 - 10/19/25 0659 10/19/25 07 - 10/20/25 0659 Shift 7172-3041 8851-9022 9249-8817 24 Hour Total 4205-4507 5223-2906 8197-4432 24 Hour Total INTAKE P.O. 50 50 [...] in sodium chloride 0.9% 100 mL IVPB (Ddfq2Rfy)) 100 200 100 400 Volume (mL) (mycophenolate [...] Output (mL) (IUC (Iniguez) 16 Fr.) 570 157 572 9931 260 260 Emesis/NG output 200 200 Drainage [...] : iniguez in place Labs: Recent Labs 10/18/25174610/18/250 10/19/25 0829 WBC 11.8* 11.4* 9.8 HGB 10.0* 9.5* 9.6* HCT 28.3* 26.9* 26.8* PLT 22* 22* 22* Recent Labs 10/18/25 17410/18/25 2220 10/19/25 0829 NA 144 146 145 K 3.4* 3.1* 3.6 CL 112* 113* 113* CO2 24 25 BUN 29* 32* 38* CREATININE [...] interval not displayed. Recent Labs 10/18/25 17410/18/25 22210/19/25 0829 AST 965* 717* 450* ALT 871* 792* 725* BILITOT 1.1 1.0 1.0 BILIDIRECT 0.56* 0.51* 0.44* ALKPHOS 61 62 65 ALBUMIN 2.2* 2.2* 2.1* 2.1* 2.2* 2.2* Recent Labs 10/18/25174610/18/25 22210/19/25 0829 INR 1.8* 1.8* 1.5* PROTIME 21.8* [...] today LETICIA LOMELI MD Transplant Surgery [facility] Surgery Resident Cosigned by Vani Winkler [...] Vani Winkler MD PhD Transplant Surgery * Lray Ding OT - 10/19/2025 11:03 AM EST Occupational Therapy Initial Assessment Name: David Serrano : 1960 Attending Physician: Vani Winkler MD Admission Diagnosis: TRANSPLANT LIVER Date: 10/19/2025 Room: [place] [address] Reviewed Pertinent hospital course: Yes Hospital Course [...] will complete lower body dressing: Moderate assistance Welding Tester Goal : Pt will tolerate a bathing assessment long term acute care registered nurse goal to be met in: 2 weeks [...] Admission Diagnosis: TRANSPLANT LIVER Date: 10/19/2025 [facility] [address] Reviewed Pertinent hospital course: Yes Hospital Course [...] Surgery Progress Note Name: David Serrano CSN: [id number] Date: 10/18/2025 12:58 PM OR Date: 10/17/2025 [...] %] 40 % I/O: Date 10/17/25699 - 10/18/2559 10/18/25699 - 10/19/25 0659 Shift 1539-0383 9934-0778 3540-3802 24 Hour Total 3881-3570 1949-4751 0419-8097 24 Hour Total INTAKE I.V.(mL/kg) 8000(80.2) 394.1(3.9) [...] 30 60 30 30 IV Piggyback 120 640 020 1066 62.6 62.6 Volume (mL) (methylPREDNISolone sodium succinate (SOLU-medrol) 500 mg in sodium chloride 0.9 % 100 mL IVPB) 100 100 Volume (mL) (AMPicillin 2 g in sodium chloride 0.9% 100 mL IVPB (Gbog1Mws)) 100 200 300 Volume (mL) (albumin human bottle 5%) 500 500 Volume (mL) (albumin human bottle 25%) 50 50 Volume (mL) (AMPicillin 1 g in sodium chloride 0.9% 100 mL IVPB (Qqej2Ata)) 97.4 97.4 Volume (mL) (mycophenolate (CELLCEPT) 500 [...] IV Push) 20 20 Shift Total(mL/kg) 120(1.2) 94396(138.6) 1105.1(11.1) 71037.1(150.9) 143.4(1.4) 143.4(1.4) OUTPUT Urine(mL/kg/hr) 1850(2.3) 1000(1.3) 2850(1.2) [...] 2 Abdomen Inferior;Lateral;Left) 100 300 400 Blood 23962 09742 Est Blood Loss 45137 61746 Shift Total(mL/kg) 87777(130.5) 1550(15.5) 74844(146.1) 355(3.6) 355(3.6) Weight (kg) 99.8 99.8 99.8 [...] EXAM: US ABDOMEN LIMITED EXAM: US DUPLEX QNW-[id number]-OFUIKNO COMPLETE INDICATION: Post-op liver transplant Day 1 [...] at 10/18/2025 9:53 AM EST US Duplex Fxc-Ksn-Roqywbf Comp Result Date: 10/18/2025 EXAM: US ABDOMEN LIMITED EXAM: US DUPLEX MNI-[id number]-JYAJNVY COMPLETE INDICATION: Post-op liver transplant Day 1 [...] below level of diaphragms and outside the cerft-la-tapr. Right internal jugular approach pulmonary artery catheter [...] Dispo: SICU LETICIA LOMELI MD Transplant Surgery [facility] Surgery Resident Cosigned by Vani Winkler [...] Cori Womack PharmD Solid Organ Transplant Clinical Psychiatric Clinician Contact via [employer] Secure Chat * Karen Washington RRT - 10/18/2025 5:32 AM EST SBT started at 0435 completed at 0520 Patient on +5 and 40% RR: 7-12 Vt: 679-940 RSBI: 10-12 AB.34/48/84/25 Patient placed on Delta 5 post SBT documented in this encounter H&P Notes * Aspen Parr MD - 10/17/2025 10:27 AM EST Transplant Surgery History and Physical Patient: David Serrano CSN: [id number] History CC: ESLD HPI: David Serrano is [...] Low Risk (06/15/2025) Received from [facility] Overall Financial Resource Strain (CARDIA) How hard is it for you to pay for the very basics like food, housing, medical care, and heating?: Not hard at all Food Insecurity: No Food Insecurity (06/15/2025) Received from [facility] Hunger Vital Sign Within the past 12 months, you worried that your food would run out before you got the money to buymore.: Never true Within the past 12 months, the food you bought just didn't last and you didn't have money to get more.: Never true Transportation Needs: No Transportation Needs (06/15/2025) Received from [facility] PRAPARE - Transportation In the past 12 months, has lack of transportation kept you from medical appointments or from getting medications?: No In the past 12 months, has lack of transportation kept you from meetings, work, or from getting things needed for daily living?: No Physical Activity: Inactive (06/15/2025) Received from [facility] Exercise Vital Sign On average, how many days per week do you engage in moderate to strenuous exercise (like a brisk walk)?: 0 days On average, how many minutes do you engage in exercise at this level?: 0 min Stress: No Stress Concern Present (06/15/2025) Received from [facility] [place] [place] of Occupational Health - Occupational Stress Questionnaire Do you feel stress - tense, restless, nervous, or anxious, or unable to sleep at night because yourmind is troubled all the time - these days?: Only a little Social Connections: Socially Integrated (06/15/2025) Received from [facility] Social Connection and Isolation Panel In a typical week, how many times do you talk on the phone with family, friends, or neighbors?: More than three times a week How often do you get together with friends or relatives?: More than three times a week How often do you attend gnosticist or temple services?: More than 4 times per year [...] Low Risk (06/15/2025) Received from [facility] Housing Stability Vital Sign In the last [...] admitted to SICU post-op. ASPEN PARR MD [facility] General Surgery Liver Transplant Pager: [phone] 10:28 AM 10/17/2025 Cosigned by Vani [...] Name: David Serrano Date: 1960 Billing #: [id number] Date of Procedure: 10/17/2025 Diagnosis: Chronic Hepatic [...] branch patch. Ligation of left renal vein. Ixbg-mj-aaqf anastomosis performed without stent. Portal Flow Modulation [...] donor was ABO O and UNOS ID [id number], [place] [id number]. This was a 56 yearold brain donor [...] After completion of the outflow anastomosis, a Nigerien clamp was placed across the donor suprahepatic [...] no further bleeding, we then performed a kngl-lu-gukn anastomosis. There was no stent placed. This [...] Name: David Serrano Date: 1960 Billing #: [id number] Date of Procedure: 10/17/2025 Diagnosis: Chronic Hepatic Failure without coma Procedure: 1. Back Bench Preparation Donor Liver Attending surgeons: Felice Nugent III, MD Cultural Historian Surgeon(s): Morena Haley MD Indications for Procedure: This is a 65 y.o.-year-old male who has alcohol and A1AT liver disease and chronic liver failure complicated by ascites and HE with a MELD score of 20. A donor organ became available. This donor was ABO O and UNOS ID [id number], [place] [id number]. This was a 56 yearold brain donor [...] MD Giulia Bencini, MD Anesthesia: General Staff: Geoscience Laboratory Technician: Mita Hernandez RN; Aspen Coleman RN Relief Geoscience Laboratory Technician: Claritza Mckinnon RN; Jonatan De La O RN; Clair Sanders RN Scrub Person: Samson Mcbride RN Fellow: Chelsie Haley MD Float: Nadia Woodruff RN; Jyotsna Singleton, SILVIO; Farzana Hamilton; Lizz Cota RN Resident: Aspen Parr MD Estimated Blood Loss: 11 L Specimens: Lummi liver and gallbladder Left liver core needle biopsy Right liver core needle biopsy Peritoneal fluid for culture Drains: Drain 1 Abdomen Inferior;Lateral;Right (Active) Number of days: 0 Drain 2 Abdomen Inferior;Lateral;Left (Active) Number of days: 0 IUC (Iniguez) 16 Fr. (Active) Number of days: 0 Transplant-Specific Information UNOS ID: [id number] Cross-clamp: 10/17/25 1250 Out of ice: 10/17/25 [...] 1:42 PM ESTAssociated Order(s): IP CONSULT TO MOLDED CANDLES WICKER [facility] Transplant Discharge Education Note Assessment: Received referral [...] 4 - Demonstrates understanding/competency Naomy Gomes RN, MSN,[facility] Diabetes Education Office [phone] Schedule: M-F 8:00am-4:30pm * Oskar Arango RD - 10/22/2025 9:08 AM EST TXP - Follow-up [facility] Medical Nutrition Therapy Reason(s) for Completion: Physician/Nursing [...] Plus- clear thickened, gelatin high protein ([facility] only) PO Meal Intake: Pt currently not taking any PO Appetite: [place] Estimated Nutrition Needs This Admission: No Feeding: Able to feed self Estimated Nutrition Needs (needs based on DBW of 70.4 kg) Kcals/day: 3815-0696 (25-30 kcal/kg) Protein g/day: 105-140 (1.5-2.0 g/kg) [...] [facility]; Service: Transplant; Laterality: N/A; Scheduled Meds: [...] Dietitian - Solid Organ Transplant Contact via [employer] Chat [1] Allergies Allergen Reactions Lisinopril Other (See Comments) * Citlaly Zimmerman RN - 10/19/2025 1:50 PM EST HEALTH Care Management/Social Work Assessment Patient Information Patient Name: David Serrano Hospital Day: 2 Inpatient/Observation: Inpatient Admit Date: 10/17/2025 Admission Diagnosis: TRANSPLANT LIVER Attending provider: Vani Winkler MD PCP: PROVIDER NOT IN SYSTEM Home Pharmacy: [facility] - [address] [place] [address] [facility] [address] [facility] [address] [facility] [address] [facility] [address] [facility] [address] [facility] [address] Pertinent Medications Anticoagulation therapy: Yes Anticoagulant (Name [...] Number of children and their names: Familia [place] Kiesha ([phone]) and Gloria Banegas ([phone]) Relative Search Completed: Yes Demographics Correct:: Yes [...] Was any abuse reported by patient?: No Friant Status & Connection to [facility] Services Friant Status & Connection to [facility] Services Are you a ?: No Support Systems Emergency contact: Extended Emergency Contact Information Primary Emergency Contact: KieshaStacy Address: [address] [place] [address] Mobile Relation: Spouse Support Systems Legal Status: HCPOA Name of Guardian/POA/ Payee and Phone Number: Stacy Willisworth ([phone]) Primary Caregiver: Self, Spouse Caregiver name/phone number: Stacy Willisworth ([phone]) Times of available support: Total 24/7 hands on (add comment) (Daughter and Friend willing to assist in pt post op care.) Marital Status: Number of children and their names: Familia Bronsonkayleigh Serrano ([phone]) and Gloria Banegas ([phone]) Relative Search Completed: Yes Demographics Correct:: Yes [...] living with spouse in a home in [place], [place]. Pt reports ~2 steps into residence and 0 inside residence. Pt reports having 2 children- Lan Serrano ([phone]) and Gloria Banegas ([phone]). Pt denies any concerns for safety or [...] Stacy Serrano. LNOK and HCPOA: Stacy Roach ([phone]) PCP: Myles Mosley Transportation: family Advance Directives [...] for further management and care. OR Course (12/3/25): - Procedure: - liver transplant and left [...] 550 mg BID 24 hour events: - Beatrice removed, introducer remains - Extubated to RI, now room air - NG pulled on [...] ratio: No PaO2 result within 12 hours. [place] body weight: [place] body weight: 63.8 kg (140 lb 10.5 [...] (99.8 kg) Labs: Recent Labs 10/18/25 1121 10/18/25174610/18/25 2220 NA 146 144 146 K 3.9 [...] in sodium chloride 0.9% 100 mL IVPB (Gzhp7Hmv) 1 g Every 6 hours 10/17/2025 10/19/2025 Admin Instructions: Dosage may need to be adjusted for renal dysfunction. Full dose is 1g IV q6h Use Wkxh0Olr Adapter - Mix Thoroughly Before Administration Notes to Pharmacy: On production recorder estimated creatinine clearance is 101.9 mL/min (based [...] a-line when stable on insulin regimen Dc ariela PT/OT: pending. PT Recs: OT Recs: JIG BORER Recs: Dispo: Remain in SICU EVELYN GALINDO [...] Pre-op MELD 20. Intra-operative course notable for yghuaivthi0W ascites. EBL 11L, received 03/19//, 2.4L cell-saver, [...] failure requiring intubation P:F: - passed SBT: 7.34/48// CXR reviewed - [...] SATURATION ARTERIAL 97 100 PF ratio: 210 [place] body weight: [place] body weight: 63.8 kg (140 lb 10.5 [...] (99.8 kg) Labs: Recent Labs 10/17/25 1018 10/17/250 10/18/25 0502 NA 141 145 146 K 3.3* 3.7 3.4* CL 110 110 111* CO2 29 27 26 CALCIUM 8.1* 8.2* 7.8* MG 1.7 1.8 2.0 PHOS 2.8 3.9 3.0 ALBUMIN 2.3* 2.3* 2.2* 2.2* 2.2* 2.2* I&Os Intake/Output Summary (Last 24 hours) at 10/18/2025 07 Last data filed at 10/18/2025 0700 Gross per 24 hour Intake 79317.44 ml Output 15691 ml Net 472.44 ml IVF: acetylcysteine (ACETADOTE) 200 mg/mL (20 %) 10 g in sodium chloride 0.45% (1/2 NS) 1,000 mL infusion, Last Rate: 10 g (10/18/25 0516) fentanyl (SUBLIMAZE) IV infusion, Last Rate: 75 mcg/hr (10/17/252257) insulin regular in 0.9 % sodium chloride, Last Rate: 9 Units/hr (10/18/25 0701) norepinephrine, Last Rate: Stopped (10/18/25 05) propofol, Last Rate: 7.5 mcg/kg/min (10/18/25718) vasopressin, Last Rate: 0.03 Units/min (10/18/25 0702) [...] active issues. HEMATOLOGIC Labs: Lab 10/18/25 0502 10/17/250 12/02/06 212510/17/25202110/17/25192510/17/25 18310/17/25 17010/17/25 16510/17/25 1559 10/17/25 1455 HEMATOCRIT 27.6* [...] this interval not displayed. Lab 10/18/25 0502 10/17/250 10/17/25212310/17/25202010/17/25 192 INR POC -- -- 2.3* 2.9* 5.9* INR 2.2* 2.1* -- -- -- Lab 10/17/25224910/17/25203010/17/25183810/17/25 16510/17/25 1455 FIBRINOGEN LEVEL 253 157* 159* [...] 0106 10/17/25 2355 10/17/25 2250 10/17/25 2247 10/17/25212410/17/25202110/17/25192510/17/25 1823 10/17/25 1742 10/17/25 1700 10/17/25 [...] in sodium chloride 0.9% 100 mL IVPB (Nlhj1Pla) 1 g Every 6 hours 10/17/2025 10/19/2025 Admin Instructions: Dosage may need to be adjusted for renal dysfunction. Full dose is 1g IV q6h Use Kwfw9Gtz Adapter - Mix Thoroughly Before Administration Notes to Pharmacy: On production recorder estimated creatinine clearance is 101.9 mL/min (based on SCr of 0.81 mg/dL). Route: Intravenous Linked Group 1: Placed in And Linked Group AMPicillin 2 g in sodium chloride 0.9% 100 mL IVPB (Fjsc0Kay) (Completed) 2 g Once 10/17/2025 10/17/2025 Admin Instructions: Begin infusion 20-60 minutes prior to incision Use Gums9Rhi Adapter - Mix Thoroughly Before Administration Notes to Pharmacy: On production recorder estimated creatinine clearance is 98.3 mL/min (based [...] 1 PT/OT: pending. PT Recs: OT Recs: JIG BORER Recs: Dispo: Remain in SICU. DUARTE EL [...] Pre-op MELD 20. Intra-operative course notable for [id number] ascites. EBL 11L, received 5///3, 2.4L cell-saver, 8.5L crystalloid. Needed 40 lasix [...] 10/18/2025 0758 Gross per 24 hour Intake 26564.34 ml Output 94706 ml Net 484.34 ml SKIN/MUSCULOSKELETAL: No acute [...] NUTRITION SERVICES TXP - Initial [facility] Nutrition Therapy Reason(s) for Completion: Physician/Nursing [...] based on DBW of 70.4 kg) Kcals/day: 7982-0064 (25-30 kcal/kg) Protein g/day: 105-140 (1.5-2.0 g/kg) [...] Dietitian - Solid Organ Transplant Contact via [employer] Chat [1] Allergies Allergen Reactions Lisinopril Other [...] O2 SATURATION ARTERIAL 100 PF ratio: 270 [place] body weight: [place] body weight: 63.8 kg (140 lb 10.5 [...] - 10/15/25 1900 10/15/25 190 - 10/16/25 0710/16/25 0701 - 10/16/25 1900 10/16/25 190 - 10/17/25 0710/17/25 0701 - 10/17/25 19010/17/25 190 - 10/17/25 2346 Drain 1 Abdomen [...] 10/17/2025 2300 Gross per 24 hour Intake 84646.34 ml Output 01973 ml Net 840.34 ml IVF: fentanyl (SUBLIMAZE) [...] INR 2.1* 7.5* 2.3* 2.3* 1.8* Lab 10/17/25224910/17/25203010/17/25183810/17/25 16510/17/25 1455 FIBRINOGEN LEVEL 253 157* 159* 137* 85* A/P: #Acute blood loss anemia #Chronic anemia - q6 CBC - Transfuse for Hgb < 7 Coagulopathy - Teg based resuscitation - Will transfuse if concerns for ongoing bleeding - Spot check TEG as needed ENDOCRINE FSBS range: Lab 12/03/25 2247 10/17/25212410/17/25202110/17/25 1926 10/17/25 1823 10/17/25 1742 [...] in sodium chloride 0.9% 100 mL IVPB (Fivg8Vxp) 1 g Every 6 hours 10/17/2025 10/19/2025 Admin Instructions: Dosage may need to be adjusted for renal dysfunction. Full dose is 1g IV q6h Use Ajcf1Elk Adapter - Mix Thoroughly Before Administration Notes to Pharmacy: On production recorder estimated creatinine clearance is 101.9 mL/min (based on SCr of 0.81 mg/dL). Route: Intravenous Linked Group 1: Placed in And Linked Group AMPicillin 2 g in sodium chloride 0.9% 100 mL IVPB (Sarw2Qcv) (Completed) 2 g Once 10/17/2025 10/17/2025 Admin Instructions: Begin infusion 20-60 minutes prior to incision Use Ynyn1Ilr Adapter - Mix Thoroughly Before Administration Notes to Pharmacy: On production recorder estimated creatinine clearance is 98.3 mL/min (based [...] Best Verbal Response: 5,Best Motor Response: 6 [place] Coma Scale Score: 15 No data found. [...] 1 PT/OT: pending. PT Recs: OT Recs: JIG BORER Recs: Dispo: Remain in SICU. DUARTE EL [...] Patient will remain free of falls Goal: [place] Fall Precautions Outcome: Adequate for Discharge Problem: [...] intervention. Outcome: Adequate for Discharge Problem: Non-violent, bis-nhek-ueuiggjxvuf restraints Description: Less restrictive alternative interventions will [...] protection of medical procedures, or protection of certified medical coder access. Outcome: Adequate for Discharge Problem: Knowledge [...] 1960 Age: 65 y.o. Gender: male SSN: [id number] [address]: [address] [place] [address] Phone number: [phone] Patient emergency contact: Extended Emergency Contact Information Primary Emergency Contact: Stacy Serrano Address: [address] [place] [address] Mobile Relation: Spouse Date of admission: 10/17/2025 Date of discharge: 10/22/2025 Attending provider: Lane Troy MD Primary care physician: PROVIDER NOT IN SYSTEM Code status: Full Code Allergies: Allergies[1] Insurance Information Insurance Information [email or web address] Phone: -- Subscriber: David Serrano Subscriber#: [id number] Group#: [id number] Precert#: -- Authorization#: [id number] Effective Date: -- [employer] Phone: -- Subscriber: David Serrano Subscriber#: [id number] Group#: -- Precert#: -- Authorization#: [id number] Effective Date: -- Diagnoses Present on Admission [...] Plus- clear thickened, gelatin high protein ([facility] only) Regular Diet Services Required Jail: vital signs, med management, lab draws Physical [...] Quantity: 200 each Refills: 2 blood-glucose meter Mis Use to test blood [...] scale: Blood glucose 150-199 mg/dL =1units, Blood eblwsfa788-696 mg/dL =2 units, Blood glucose 250-299 mg/dL =3 units, Blood glucose 300-349 mg/dL =4 units,Blood glucose greater than 349 mg/dL = 5 units Quantity: 15 mL Refills: 2 lancets [facility] Use to test blood sugar four times [...] These medications were sent to [facility] [address] [place] [address] Hours: Wednesday - Wednesday: 8:00AM - 6:00PM acetaminophen 325 MG tablet acyclovir 400 MG tablet alcohol swabs Padm blood-glucose meter [facility] calcium-vitamin D 500 mg-5 mcg (200 unit) [...] level (prior to am tacro dose) every M/ starting 10/29. Fax results to liver transplant clinic at [phone]. NURSE VISIT: Please check vitals and assess/monitor [...] effort and are for medical reasons or temple services or infrequently or short duration when for other reasons) due to deconditioning it would be a taxing effort to receive outpatient services. My signature below is to certify that this patient is under my care and that I, or nurse practitioner, or a physician assistant community director working with me, had a wgzn-rk-lvpf encounter with this is patient on: 10/22/2025 Follow-up Appointments and Post Hospital Discharge Physician Name Future Appointments Date Time Provider Department Center 10/30/2025 9:00 AM [facility], [facility] [address] [place] [address] [address] [address] Discharging Physician Signature and Credentials Discharging Physician: Electronically signed by LAISHA HERNANDEZ 10/22/2025, 1:32 PM Physician to follow up Information PCP: PROVIDER NOT IN SYSTEM PCP address: None PCP phone number: None PCP fax number: None Follow-up: [facility] and their phone / fax is: [phone] / [phone] Digital Asset Manager and Credentials Provider/Company Name and Contact Number: Community Services at Discharge Community [facility] at Home post discharge: Home [facility] Name/Phone # post discharge: [facility] [employer] ([phone]) Home Health Services Types at Discharge: PT/OT/JIG BORER, Jail (nursing home for lab draws.) Digital Asset Manager Name and Telephone Number: Citlaly Zimmerman RN/SAJAN [phone] [1] Allergies Allergen Reactions Lisinopril Other (See [...] to patients area and insurance. Kamlesh Sanchez Machine Pack Assembler Cultural Historian Care Management Services [phone] * Plan of Care - Evelyn Galindo [...] Bush RN - 10/18/2025 3:55 PM EST [facility] Case Management/Social Work Department Progress Note Patient [...] PCP: PROVIDER NOT IN SYSTEM Home Pharmacy: [facility] - TERRANCE Eng - [address] [address] [place] [address] [place] [address] [facility] [address] [facility] [address] [facility] [address] [place] [facility] [address] [facility] [address] [facility] [address] Medical Insurance Coverage: Payor: NANCY / Plan: [...] discharge planning needs. TAMIA BUSH RN Cell [phone] * Plan of Care - Angela Tamez [...] Patient will remain free of falls Goal: [place] Fall Precautions Outcome: Progressing Problem: Daily Care [...] pain management intervention. Outcome: Progressing Problem: Non-violent, yfv-jeex-pcfzdqrridw restraints Description: Less restrictive alternative interventions will [...] protection of medical procedures, or protection of certified medical coder access. Outcome: Progressing Problem: Knowledge Deficit Goal: [...] Patient will remain free of falls Goal: [place] Fall Precautions Outcome: Progressing Problem: Daily Care [...] pain management intervention. Outcome: Progressing Problem: Non-violent, vaz-mret-cccjbgfexsb restraints Description: Less restrictive alternative interventions will [...] protection of medical procedures, or protection of certified medical coder access. Outcome: Progressing Patient in bilateral soft [...] Priority Date/Time Associated Diagnosis Comments US DUPLEX TEE-UVWCVN-[id number] COMPLETE STAT 10/22/2025 10:24 AM EST US [...] Routine 10/18/2025 10:29 AM EST US DUPLEX [id number] COMPLETE STAT 10/18/2025 9:35 AM EST US [...] in this encounter Results * US Duplex Dgr-Ubk-Ykypfsp Comp (10/22/2025 10:24 AM EST) Anatomical Region [...] EXAM: US ABDOMEN COMPLETE EXAM: US DUPLEX NNE-[id number]-[id number] COMPLETE INDICATION: Post-op liver transplant DATE: 10/22/2025 [...] EXAM: US ABDOMEN COMPLETE EXAM: US DUPLEX [id number] COMPLETE INDICATION: Post-op liver transplant DATE: 10/22/2025 [...] 12:02 PM EST us Leticia Lomeli MD [facility] US ORDERABLES Final Resul t * US [...] EXAM: US ABDOMEN COMPLETE EXAM: US DUPLEX [id number]-[id number]-PMYYYQY COMPLETE INDICATION: Post-op liver transplant DATE: 10/22/2025 [...] EXAM: US ABDOMEN COMPLETE EXAM: US DUPLEX [id number] COMPLETE INDICATION: Post-op liver transplant DATE: 10/22/2025 [...] 10/22/2025 12:02 PM EST Leticia Lomeli MD [facility] ORDERABLES Final Resul t * POC Glucose Monitoring Device (10/22/2025 10:23 AM EST) POC Glucose Monitoring Device 96 70 - 100 mg/dL 10/22/2025 10:24 AM EST [facility] Blood 10/22/2025 10:2 3 AM EST 10/22/2025 10:23 AM EST us Vani Winkler MD POINT OF CARE TEST ORDERABLE S Final Result [facility] [address] [place] [address], [facility] * Tacrolimus level (10/22/2025 9:48 AM EST) Tacrolimus (LC-MS) 4.0 3.0 - 15.0 ng/mL 10/22/2025 12:57 PM EST [facility] Comment:Performed via liquid chromatography tandem mass spectrometry. Detection limit: 1 ng/mL. Individual target concentrations may vary due to target organ and time after transplant. This test has been developed and its performance characteristics determined by [facility] Laboratory which is certified under the Clinical [...] ORDERABLES Final Re sult Performing Organization Address City/[facility]/ZIP Co de Phone Number [facility] [address] [place] [address] * Phosphorus (10/22/2025 5:28 AM EST) Phosphorus 2.3 2.1 - 4.7 mg/dL 10/22/2025 6:20 AM EST [facility] Plasma 10/22/2025 5:28 AM EST 10/22/2025 5:42 AM EST Aspen Parr MD LAB BLOOD ORDERABLES Final Resul t Performing Organization Address [facility] de Phone Number [facility] [address] [place] [address] * Magnesium (10/22/2025 5:28 AM EST) Magnesium 1.7 1.5 - 2.5 mg/dL 10/22/2025 6:20 AM EST [facility] Plasma 10/22/2025 5:28 AM EST 10/22/2025 5:42 AM EST us Aspen Parr MD LAB BLOOD ORDERABLES Final Resul t [facility] [address] * (ABNORMAL) CBC (10/22/2025 5:28 AM EST) WBC 6.6 3.8 - 10.8 10E3/uL 10/22/2025 5:48 AM EST [facility] RBC 2.84(L) 4.20 - 5.80 10E6/uL 10/22/2025 5:48 AM EST [facility] Hemoglobin 9.3(L) 13.2 - 17.1 g/dL 10/22/2025 5:48 AM EST [facility] Hematocrit 26.4(L) 38.5 - 50.0 % 10/22/2025 5:48 AM EST [facility] MCV 92.8 80.0 - 100.0 fL 10/22/2025 5:48 AM EST [facility] MCH 32.8 27.0 - 33.0 pg 10/22/2025 5:48 AM EST [facility] MCHC 35.4 32.0 - 36.0 g/dL 10/22/2025 5:48 AM EST [facility] RDW 16.0(H) 11.0 - 15.0 % 10/22/2025 5:48 AM EST [facility] Platelets 22(L) 140 - 400 10E3/uL 10/22/2025 5:48 AM EST [facility] Comment: CNV Specimen checked for clots. None detected. MPV 9.1 7.5 - 11.5 fL 10/22/2025 5:48 AM EST [facility] Whole Blood 10/22/2025 5:28 AM EST 10/22/2025 5:42 AM EST us Aspen Parr MD LAB BLOOD ORDERABLES Final Resul t [facility] [address] * (ABNORMAL) Hepatic Function Panel (10/22/2025 5:28 AM EST) Total Bilirubin 1.0 0.0 - 1.5 mg/dL 10/22/2025 6:20 AM EST [facility] Bilirubin, Direct 0.28 0.00 - 0.40 mg/dL 10/22/2025 6:20 AM EST [facility] AST 42(H) 13 - 39 U/L 10/22/2025 6:20 AM EST [facility] ALT 270(H) 7 - 52 U/L 10/22/2025 6:20 AM EST [facility] Alkaline Phosphatase 84 36 - 125 U/L 10/22/2025 6:20 AM EST [facility] Total Protein 4.3(L) 6.4 - 8.9 g/dL 10/22/2025 6:20 AM EST [facility] Albumin 2.1(L) 3.5 - 5.7 g/dL 10/22/2025 6:20 AM EST [facility] Bilirubin, Indirect 0.72 0.00 - 1.10 mg/dL 10/22/2025 6:20 AM EST [facility] Plasma 10/22/2025 5:28 AM EST 10/22/2025 5:42 AM EST Aspen Parr MD LAB BLOOD ORDERABLES Final Resul t [facility] [address] * (ABNORMAL) Basic metabolic panel (10/22/2025 5:28 AM EST) Sodium 138 133 - 146 mmol/L 10/22/2025 6:20 AM EST [facility] Potassium 3.2(L) 3.5 - 5.3 mmol/L 10/22/2025 6:20 AM EST [facility] Chloride 107 98 - 110 mmol/L 10/22/2025 6:20 AM EST [facility] CO2 25 21 - 33 mmol/L 10/22/2025 6:20 AM EST [facility] Comment:High lactate dehydro genase concentrations in patient samples may cause falsely increased bicarbonate results. If markedly elevated LDH is observed or suspected, please assess results in conjunction with patient`s clinical presentation. In cases of discrepant results, consider evaluating CO2 in with a blood gas order. Anion Gap 6 3 - 16 mmol/L 10/22/2025 6:20 AM EST [facility] BUN 25 7 - 25 mg/dL 10/22/2025 6:20 AM EST [facility] Creatinine 0.81 0.60 - 1.30 mg/dL 10/22/2025 6:20 AM EST [facility] Glucose 100 70 - 100 mg/dL 10/22/2025 6:20 AM EST [facility] Calcium 6.8(L) 8.6 - 10.3 mg/dL 10/22/2025 6:20 AM EST [facility] Osmolality, Calculated 290 278 - 305 mOsm/kg 10/22/2025 6:20 AM EST [facility] EGFR >90 10/22/2025 6:20 AM EST [facility] Comment: As of 2022, the [...] LAB BLOOD ORDERABLES Final Resul t [facility] [address] * (ABNORMAL) POC Glucose Monitoring Device (10/21/2025 4:31 PM EST) POC Glucose Monitoring Device 230(H) 70 - 100 mg/dL 10/21/2025 4:32 PM EST [facility] Blood 10/21/2025 4:31 PM EST 10/21/2025 4:32 PM EST Vani Winkler MD POINT OF CARE TEST ORDERABLE S Final Result Performing Organization Address City/[facility]/ZIP Co de Phone Number [facility] [address] [facility]. [address] * (ABNORMAL) POC Glucose Monitoring Device (10/21/2025 12:27 PM EST) POC Glucose Monitoring Device 181(H) 70 - 100 mg/dL 10/21/2025 12:27 PM EST [facility] Blood 10/21/2025 12:2 7 PM EST 10/21/2025 12:27 PM EST Vani Winkler MD POINT OF CARE TEST ORDERABLE S Final Result Performing Organization Address City/[facility] Co de Phone Number [facility] [address] [facility]. [address] * Tacrolimus level (10/21/2025 8:30 AM EST) Tacrolimus (LC-MS) 6.9 3.0 - 15.0 ng/mL 10/21/2025 3:07 PM EST [facility] Comment:Performed via liquid chromatography tandem mass spectrometry. Detection limit: 1 ng/mL. Individual target concentrations may vary due to target organ and time after transplant. This test has been developed and its performance characteristics determined by [facility] which is certified under the Clinical [...] ORDERABLES Final Re sult Performing Organization Address City/[facility]/ZIP Co de Phone Number [facility] [address] * (ABNORMAL) POC Glucose Monitoring Device (10/21/2025 8:18 AM EST) POC Glucose Monitoring Device 112(H) 70 - 100 mg/dL 10/21/2025 8:28 AM EST [facility] Blood 10/21/2025 8:18 AM EST 10/21/2025 8:28 AM EST Vani Winkler MD POINT OF CARE TEST ORDERABLE S Final Result Performing Organization Address [facility] Co de Phone Number [facility] [address] * (ABNORMAL) Hepatic Function Panel (10/21/2025 6:35 AM EST) Total Bilirubin 0.9 0.0 - 1.5 mg/dL 10/21/2025 7:45 AM EST [facility] Bilirubin, Direct 0.41(H) 0.00 - 0.40 mg/dL 10/21/2025 7:45 AM EST [facility] AST 64(H) 13 - 39 U/L 10/21/2025 7:45 AM EST [facility] ALT 389(H) 7 - 52 U/L 10/21/2025 7:45 AM EST [facility] Alkaline Phosphatase 83 36 - 125 U/L 10/21/2025 7:45 AM EST [facility] Total Protein 4.3(L) 6.4 - 8.9 g/dL 10/21/2025 7:45 AM EST [facility] Albumin 2.2(L) 3.5 - 5.7 g/dL 10/21/2025 7:45 AM EST [facility] Bilirubin, Indirect 0.49 0.00 - 1.10 mg/dL 10/21/2025 7:45 AM EST [facility] Plasma 10/21/2025 6:35 AM EST 10/21/2025 6:58 AM EST Aspen Parr MD LAB BLOOD ORDERABLES Final Resul t Performing Organization Address City/[facility]/ZIP Co de Phone Number [facility] [address] [facility]. [address] * Magnesium (10/21/2025 6:35 AM EST) Magnesium 2.0 1.5 - 2.5 mg/dL 10/21/2025 7:45 AM EST [facility] Plasma 10/21/2025 6:35 AM EST 10/21/2025 6:58 AM EST Aspen Parr MD LAB BLOOD ORDERABLES Final Resul t Performing Organization Address [facility] de Phone Number [facility] [address] * (ABNORMAL) Renal Function Panel w/EGFR (10/21/2025 6:35 AM EST) Sodium 139 133 - 146 mmol/L 10/21/2025 7:45 AM EST [facility] Potassium 3.5 3.5 - 5.3 mmol/L 10/21/2025 7:45 AM EST [facility] Chloride 108 98 - 110 mmol/L 10/21/2025 7:45 AM EST [facility] CO2 26 21 - 33 mmol/L 10/21/2025 7:45 AM EST [facility] Comment:High lactate dehydro genase concentrations in patient samples may cause falsely increased bicarbonate results. If markedly elevated LDH is observed or suspected, please assess results in conjunction with patient`s clinical presentation. In cases of discrepant results, consider evaluating CO2 in with a blood gas order. Anion Gap 5 3 - 16 mmol/L 10/21/2025 7:45 AM EST [facility] BUN 39(H) 7 - 25 mg/dL 10/21/2025 7:45 AM EST [facility] Creatinine 0.96 0.60 - 1.30 mg/dL 10/21/2025 7:45 AM EST [facility] Glucose 126(H) 70 - 100 mg/dL 10/21/2025 7:45 AM EST [facility] Calcium 6.8(L) 8.6 - 10.3 mg/dL 10/21/2025 7:45 AM EST [facility] Phosphorus 2.8 2.1 - 4.7 mg/dL 10/21/2025 7:45 AM EST [facility] Albumin 2.2(L) 3.5 - 5.7 g/dL 10/21/2025 7:45 AM EST [facility] Osmolality, Calculated 299 278 - 305 mOsm/kg 10/21/2025 7:45 AM EST [facility] EGFR 88 10/21/2025 7:45 AM EST [facility] Comment:As of 2022, the estimated [...] LAB BLOOD ORDERABLES Final Resul t [facility] [address] [place] [id number] * (ABNORMAL) CBC (10/21/2025 6:35 AM EST) WBC 8.4 3.8 - 10.8 10E3/uL 10/21/2025 7:55 AM EST [facility] RBC 2.68(L) 4.20 - 5.80 10E6/uL 10/21/2025 7:55 AM EST [facility] Hemoglobin 8.9(L) 13.2 - 17.1 g/dL 10/21/2025 7:55 AM EST [facility] Hematocrit 24.8(L) 38.5 - 50.0 % 10/21/2025 7:55 AM EST [facility] MCV 92.6 80.0 - 100.0 fL 10/21/2025 7:55 AM EST [facility] MCH 33.3(H) 27.0 - 33.0 pg 10/21/2025 7:55 AM EST [facility] MCHC 36.0 32.0 - 36.0 g/dL 10/21/2025 7:55 AM EST [facility] RDW 16.9(H) 11.0 - 15.0 % 10/21/2025 7:55 AM EST [facility] Platelets 20(L) 140 - 400 10E3/uL 10/21/2025 7:55 AM [facility] Comment: CNV Specimen checked for clots. None detected. MPV 8.5 7.5 - 11.5 fL 10/21/2025 7:55 AM EST [facility] Whole Blood 10/21/2025 6:35 AM EST 10/21/2025 6:58 AM EST us Aspen Parr MD LAB BLOOD ORDERABLES Final Resul t [facility] [address] * (ABNORMAL) POC Glucose Monitoring Device (10/20/2025 5:17 PM EST) POC Glucose Monitoring Device 195(H) 70 - 100 mg/dL 10/20/2025 5:18 PM EST [facility] Blood 10/20/2025 5:17 PM EST 10/20/2025 5:18 PM EST us Vani Winkler MD POINT OF CARE TEST ORDERABLE S Final Result [facility] [address] [facility]. [address] * (ABNORMAL) POC Glucose Monitoring Device (10/20/2025 2:24 PM EST) POC Glucose Monitoring Device 205(H) 70 - 100 mg/dL 10/20/2025 2:24 PM EST [facility] Blood 10/20/2025 2:24 PM EST 10/20/2025 2:24 PM EST Vani Winkler MD POINT OF CARE TEST ORDERABLE S Final Result Performing Organization Address [facility] Co de Phone Number [facility] [address] [place] [address]. [address] * Tacrolimus level (10/20/2025 10:31 AM EST) [facility] Tacrolimus (LC-MS) 7.9 3.0 - 15.0 ng/mL 10/20/2025 2:25 PM EST [facility] Comment:Performed via liquid chromatography tandem mass spectrometry. Detection limit: 1 ng/mL. Individual target concentrations may vary due to target organ and time after transplant. This test has been developed and its performance characteristics determined by [facility] which is certified under the Clinical [...] ORDERABLES Final Re sult Performing Organization Address [facility] Co de Phone Number [facility] [address] [facility]. [address] * (ABNORMAL) POC Glucose Monitoring Device (10/20/2025 9:24 AM EST) POC Glucose Monitoring Device 227(H) 70 - 100 mg/dL 10/20/2025 9:25 AM EST [facility] Blood 10/20/2025 9:24 AM EST 10/20/2025 9:25 AM EST Vani Winkler MD POINT OF CARE TEST ORDERABLE S Final Result [facility] [address] * Magnesium (10/20/2025 5:31 AM EST) Magnesium 2.1 1.5 - 2.5 mg/dL 10/20/2025 7:35 AM EST [facility] Plasma 10/20/2025 5:31 AM EST 10/20/2025 5:42 AM EST Aspen Parr MD LAB BLOOD ORDERABLES Final Resul t [facility] [address] * (ABNORMAL) Hepatic Function Panel (10/20/2025 5:31 AM EST) Total Bilirubin 0.9 0.0 - 1.5 mg/dL 10/20/2025 7:35 AM EST [facility] Bilirubin, Direct 0.43(H) 0.00 - 0.40 mg/dL 10/20/2025 7:35 AM EST [facility] AST 161(H) 13 - 39 U/L 10/20/2025 7:35 AM EST [facility] ALT 532(H) 7 - 52 U/L 10/20/2025 7:35 AM EST [facility] Alkaline Phosphatase 67 36 - 125 U/L 10/20/2025 7:35 AM EST [facility] Total Protein 4.2(L) 6.4 - 8.9 g/dL 10/20/2025 7:35 AM EST [facility] Albumin 2.2(L) 3.5 - 5.7 g/dL 10/20/2025 7:35 AM EST [facility] Bilirubin, Indirect 0.47 0.00 - 1.10 mg/dL 10/20/2025 7:35 AM EST [facility] Plasma 10/20/2025 5:31 AM EST 10/20/2025 5:42 AM EST us Aspen Parr MD LAB BLOOD ORDERABLES Final Resul t [facility] [address] [place], [place] [address] * (ABNORMAL) Renal Function Panel w/EGFR (10/20/2025 5:31 AM EST) Sodium 142 133 - 146 mmol/L 10/20/2025 7:23 AM EST [facility] Potassium 3.8 3.5 - 5.3 mmol/L 10/20/2025 7:23 AM [facility] Chloride 111(H) 98 - 110 mmol/L 10/20/2025 7:23 AM [facility] CO2 25 21 - 33 mmol/L 10/20/2025 7:23 AM EST [facility] Comment:High lactate dehydro genase concentrations in patient samples may cause falsely increased bicarbonate results. If markedly elevated LDH is observed or suspected, please assess results in conjunction with patient`s clinical presentation. In cases of discrepant results, consider evaluating CO2 in with a blood gas order. Anion Gap 6 3 - 16 mmol/L 10/20/2025 7:23 AM EST [facility] BUN 47(H) 7 - 25 mg/dL 10/20/2025 7:23 AM EST [facility] Creatinine 1.15 0.60 - 1.30 mg/dL 10/20/2025 7:23 AM EST [facility] Glucose 198(H) 70 - 100 mg/dL 10/20/2025 7:23 AM EST [facility] Calcium 6.8(L) 8.6 - 10.3 mg/dL 10/20/2025 7:23 AM [facility] Phosphorus 4.8(H) 2.1 - 4.7 mg/dL 10/20/2025 7:35 AM EST [facility] Albumin 2.2(L) 3.5 - 5.7 g/dL 10/20/2025 7:35 AM EST [facility] Osmolality, Calculated 312(H) 278 - 305 mOsm/kg 10/20/2025 7:23 AM EST [facility] EGFR 71 10/20/2025 7:23 AM EST [facility] Comment:As of 2022, the estimated [...] LAB BLOOD ORDERABLES Final Resul t [facility] [address] * (ABNORMAL) CBC (10/20/2025 5:31 AM EST) WBC 6.1 3.8 - 10.8 10E3/uL 10/20/2025 6:18 AM EST [facility] RBC 2.64(L) 4.20 - 5.80 10E6/uL 10/20/2025 6:18 AM EST [facility] Hemoglobin 8.5(L) 13.2 - 17.1 g/dL 10/20/2025 6:18 AM EST [facility] Hematocrit 24.6(L) 38.5 - 50.0 % 10/20/2025 6:18 AM EST [facility] MCV 93.2 80.0 - 100.0 fL 10/20/2025 6:18 AM EST [facility] MCH 32.2 27.0 - 33.0 pg 10/20/2025 6:18 AM EST [facility] MCHC 34.6 32.0 - 36.0 g/dL 10/20/2025 6:18 AM EST [facility] RDW 17.4(H) 11.0 - 15.0 % 10/20/2025 6:18 AM EST [facility] Platelets 17(LL) 140 - 400 10E3/uL 10/20/2025 6:18 AM EST [facility] Comment: Results verified by repeat analysis. Critical Result PLT:17 Called to and read back by ALEKSANDR SMITH RN at: 10/20/2025 06:18:19 by:DEJON ARREGUINV 8.4 7.5 - 11.5 fL 10/20/2025 6:18 AM EST [facility] Whole Blood 10/20/2025 5:31 AM EST 10/20/2025 5:42 AM EST us Aspen Parr MD LAB BLOOD ORDERABLES Final Resul t Performing Organization Address City/[facility]/ZIP Co de Phone Number [facility] [address] * (ABNORMAL) POC Glucose Monitoring Device (10/20/2025 5:30 AM EST) POC Glucose Monitoring Device 208(H) 70 - 100 mg/dL 10/20/2025 5:31 AM EST [facility] Blood 10/20/2025 5:30 AM EST 10/20/2025 5:31 AM EST us Vani Winkler MD POINT OF CARE TEST ORDERABLE S Final Result [facility] [address] * (ABNORMAL) Protime-INR (10/19/2025 11:03 PM EST) Protime 18.2(H) 12.1 - 15.1 seconds 10/19/2025 11:27 PM EST [facility] INR 1.4(H) 0.9 - 1.1 10/19/2025 11:27 PM EST [facility] Comment: RECOMMENDED THERAPEUTIC RANGES USING INR : Stable oral anticoagulant therapy: 2.0 - 3.0 Mechanical prosthetic heart valve: 2.5 - 3.5 Recurrent acute myocardial infarction: 2.5 - 3.5 Plasma 10/19/2025 11:0 3 PM EST 10/19/2025 11:07 PM EST Aspen Parr MD LAB BLOOD ORDERABLES Final Resul t [facility] [address] [facility]. [address] * Magnesium (10/19/2025 11:03 PM EST) Magnesium 2.1 1.5 - 2.5 mg/dL 10/19/2025 11:45 PM EST [facility] Plasma 10/19/2025 11:0 3 PM EST 10/19/2025 11:07 PM EST Aspen Parr MD LAB BLOOD ORDERABLES Final Resul t Performing Organization Address City/[facility] Co de Phone Number [facility] [address] * (ABNORMAL) Hepatic Function Panel (10/19/2025 11:03 PM EST) Total Bilirubin 1.0 0.0 - 1.5 mg/dL 10/19/2025 11:45 PM EST [facility] Bilirubin, Direct 0.48(H) 0.00 - 0.40 mg/dL 10/19/2025 11:45 PM EST [facility] AST 223(H) 13 - 39 U/L 10/19/2025 11:45 PM EST [facility] ALT 569(H) 7 - 52 U/L 10/19/2025 11:45 PM EST [facility] Alkaline Phosphatase 68 36 - 125 U/L 10/19/2025 11:45 PM EST [facility] Total Protein 4.4(L) 6.4 - 8.9 g/dL 10/19/2025 11:45 PM EST [facility] Albumin 2.2(L) 3.5 - 5.7 g/dL 10/19/2025 11:45 PM EST [facility] Bilirubin, Indirect 0.52 0.00 - 1.10 mg/dL 10/19/2025 11:45 PM EST [facility] Plasma 10/19/2025 11:0 3 PM EST 10/19/2025 11:07 PM EST us Aspen Parr MD LAB BLOOD ORDERABLES Final Resul t [facility] [address] [id number], [facility] * (ABNORMAL) Renal Function Panel w/EGFR (10/19/2025 11:03 PM EST) Sodium 144 133 - 146 mmol/L 10/19/2025 11:33 PM [facility] Potassium 3.6 3.5 - 5.3 mmol/L 10/19/2025 11:33 PM [facility] Chloride 110 98 - 110 mmol/L 10/19/2025 11:33 PM [facility] CO2 25 21 - 33 mmol/L 10/19/2025 11:33 PM [facility] Comment:High lactate dehydro genase concentrations in patient samples may cause falsely increased bicarbonate results. If markedly elevated LDH is observed or suspected, please assess results in conjunction with patient`s clinical presentation. In cases of discrepant results, consider evaluating CO2 in with a blood gas order. Anion Gap 9 3 - 16 mmol/L 10/19/2025 11:33 PM EST [facility] BUN 46(H) 7 - 25 mg/dL 10/19/2025 11:33 PM [facility] Creatinine 1.24 0.60 - 1.30 mg/dL 10/19/2025 11:33 PM [facility] Glucose 184(H) 70 - 100 mg/dL 10/19/2025 11:33 PM [facility] Calcium 7.1(L) 8.6 - 10.3 mg/dL 10/19/2025 11:33 PM [facility] Phosphorus 4.9(H) 2.1 - 4.7 mg/dL 10/19/2025 11:45 PM EST [facility] Albumin 2.2(L) 3.5 - 5.7 g/dL 10/19/2025 11:45 PM EST [facility] Osmolality, Calculated 315(H) 278 - 305 mOsm/kg 10/19/2025 11:33 PM EST [facility] EGFR 65 10/19/2025 11:33 PM EST [facility] Comment:As of 2022, the estimated [...] LAB BLOOD ORDERABLES Final Resul t [facility] [address] [place] [address], [facility] * (ABNORMAL) CBC (10/19/2025 11:03 PM EST) WBC 7.0 3.8 - 10.8 10E3/uL 10/19/2025 11:20 PM EST [facility] RBC 2.77(L) 4.20 - 5.80 10E6/uL 10/19/2025 11:20 PM EST [facility] Hemoglobin 8.9(L) 13.2 - 17.1 g/dL 10/19/2025 11:20 PM EST [facility] Hematocrit 25.8(L) 38.5 - 50.0 % 10/19/2025 11:20 PM EST [facility] MCV 93.2 80.0 - 100.0 fL 10/19/2025 11:20 PM EST [facility] MCH 32.2 27.0 - 33.0 pg 10/19/2025 11:20 PM EST [facility] MCHC 34.5 32.0 - 36.0 g/dL 10/19/2025 11:20 PM EST [facility] RDW 18.1(H) 11.0 - 15.0 % 10/19/2025 11:20 PM EST [facility] Platelets 20(L) 140 - 400 10E3/uL 10/19/2025 11:20 PM EST [facility] Comment:CNV MPV 8.0 7.5 - 11.5 fL 10/19/2025 11:20 PM EST [facility] Whole Blood 10/19/2025 11:0 3 PM EST 10/19/2025 11:07 PM EST Aspen Parr MD LAB BLOOD ORDERABLES Final Resul t [facility] [address] * (ABNORMAL) POC Glucose Monitoring Device (10/19/2025 11:02 PM EST) POC Glucose Monitoring Device 185(H) 70 - 100 mg/dL 10/19/2025 11:03 PM EST [facility] Blood 10/19/2025 11:0 2 PM EST 10/19/2025 11:03 PM EST Vani Winkler MD POINT OF CARE TEST ORDERABLE S Final Result [facility] [address] * (ABNORMAL) POC Glucose Monitoring Device (10/19/2025 5:24 PM EST) POC Glucose Monitoring Device 166(H) 70 - 100 mg/dL 10/19/2025 5:35 PM EST [facility] Blood 10/19/2025 5:24 PM EST 10/19/2025 5:35 PM EST Vani Winkler MD POINT OF CARE TEST ORDERABLE S Final Result Performing Organization Address [facility] Co de Phone Number [facility] [address] * (ABNORMAL) POC Glucose Monitoring Device (10/19/2025 12:26 PM EST) POC Glucose Monitoring Device 156(H) 70 - 100 mg/dL 10/19/2025 12:27 PM EST [facility] Blood 10/19/2025 12:2 6 PM EST 10/19/2025 12:27 PM EST Vani Winkler MD POINT OF CARE TEST ORDERABLE S Final Result Performing Organization Address [facility] de Phone Number [facility] [address] [facility]. [address] * (ABNORMAL) POC Glucose Monitoring Device (10/19/2025 9:51 AM EST) POC Glucose Monitoring Device 110(H) 70 - 100 mg/dL 10/19/2025 9:52 AM EST [facility] Blood 10/19/2025 9:51 AM EST 10/19/2025 9:52 AM EST Vani Winkler MD POINT OF CARE TEST ORDERABLE S Final Result Performing Organization Address [facility] Co de Phone Number [facility] [address] [facility]. [address] * (ABNORMAL) Tacrolimus level (10/19/2025 8:29 AM EST) Tacrolimus (LC-MS) 2.1(L) 3.0 - 15.0 ng/mL 10/19/2025 3:06 PM EST [facility] Comment:Performed via liquid chromatography tandem mass spectrometry. Detection limit: 1 ng/mL. Individual target concentrations may vary due to target organ and time after transplant. This test has been developed and its performance characteristics determined by [facility] which is certified under the Clinical [...] ORDERABLES Final Re sult Performing Organization Address City/[facility]/ZIP Co de Phone Number [facility] [address] [facility]. [address] * (ABNORMAL) Protime-INR (10/19/2025 8:29 AM EST) Protime 19.1(H) 12.1 - 15.1 seconds 10/19/2025 9:09 AM EST [facility] INR 1.5(H) 0.9 - 1.1 10/19/2025 9:09 AM EST [facility] Comment: RECOMMENDED THERAPEUTIC RANGES USING INR : Stable oral anticoagulant therapy: 2.0 - 3.0 Mechanical prosthetic heart valve: 2.5 - 3.5 Recurrent acute myocardial infarction: 2.5 - 3.5 Plasma 10/19/2025 8:29 AM EST 10/19/2025 8:33 AM EST Aspen Parr MD LAB BLOOD ORDERABLES Final Resul t [facility] [address] [facility]. [address] * Magnesium (10/19/2025 8:29 AM EST) Magnesium 2.0 1.5 - 2.5 mg/dL 10/19/2025 9:28 AM EST [facility] Plasma 10/19/2025 8:29 AM EST 10/19/2025 8:33 AM EST Aspen Parr MD LAB BLOOD ORDERABLES Final Resul t [facility] [address] [facility]. [address] * (ABNORMAL) Hepatic Function Panel (10/19/2025 8:29 AM EST) Total Bilirubin 1.0 0.0 - 1.5 mg/dL 10/19/2025 9:28 AM EST [facility] Bilirubin, Direct 0.44(H) 0.00 - 0.40 mg/dL 10/19/2025 9:28 AM EST [facility] AST 450(H) 13 - 39 U/L 10/19/2025 9:28 AM EST [facility] ALT 725(H) 7 - 52 U/L 10/19/2025 9:28 AM EST [facility] Alkaline Phosphatase 65 36 - 125 U/L 10/19/2025 9:28 AM EST [facility] Total Protein 4.4(L) 6.4 - 8.9 g/dL 10/19/2025 9:28 AM EST [facility] Albumin 2.2(L) 3.5 - 5.7 g/dL 10/19/2025 9:28 AM EST [facility] Bilirubin, Indirect 0.56 0.00 - 1.10 mg/dL 10/19/2025 9:28 AM EST [facility] Plasma 10/19/2025 8:29 AM EST 10/19/2025 8:33 AM EST Aspen Parr MD LAB BLOOD ORDERABLES Final Resul t [facility] [address] [facility] [facility]. [address] * (ABNORMAL) Renal Function Panel w/EGFR (10/19/2025 8:29 AM EST) Sodium 145 133 - 146 mmol/L 10/19/2025 9:09 AM EST [facility] Potassium 3.6 3.5 - 5.3 mmol/L 10/19/2025 9:09 AM [facility] Chloride 113(H) 98 - 110 mmol/L 10/19/2025 9:09 AM [facility] CO2 25 21 - 33 mmol/L 10/19/2025 9:09 AM [facility] Comment:High lactate dehydro genase concentrations in patient samples may cause falsely increased bicarbonate results. If markedly elevated LDH is observed or suspected, please assess results in conjunction with patient`s clinical presentation. In cases of discrepant results, consider evaluating CO2 in with a blood gas order. Anion Gap 7 3 - 16 mmol/L 10/19/2025 9:09 AM [facility] BUN 38(H) 7 - 25 mg/dL 10/19/2025 9:09 AM [facility] Creatinine 1.16 0.60 - 1.30 mg/dL 10/19/2025 9:09 AM [facility] Glucose 129(H) 70 - 100 mg/dL 10/19/2025 9:09 AM [facility] Calcium 7.2(L) 8.6 - 10.3 mg/dL 10/19/2025 9:09 AM [facility] Phosphorus 4.0 2.1 - 4.7 mg/dL 10/19/2025 9:28 AM [facility] Albumin 2.2(L) 3.5 - 5.7 g/dL 10/19/2025 9:28 AM [facility] Osmolality, Calculated 311(H) 278 - 305 mOsm/kg 10/19/2025 9:09 AM [facility] EGFR 70 10/19/2025 9:09 AM [facility] Comment:As of 2022, the [...] LAB BLOOD ORDERABLES Final Resul t [facility] [address] [place] [address], [facility] * (ABNORMAL) CBC (10/19/2025 8:29 AM EST) WBC 9.8 3.8 - 10.8 10E3/uL 10/19/2025 9:06 AM EST [facility] RBC 2.90(L) 4.20 - 5.80 10E6/uL 10/19/2025 9:06 AM EST [facility] Hemoglobin 9.6(L) 13.2 - 17.1 g/dL 10/19/2025 9:06 AM [facility] Hematocrit 26.8(L) 38.5 - 50.0 % 10/19/2025 9:06 AM [facility] MCV 92.4 80.0 - 100.0 fL 10/19/2025 9:06 AM [facility] MCH 33.2(H) 27.0 - 33.0 pg 10/19/2025 9:06 AM [facility] MCHC 36.0 32.0 - 36.0 g/dL 10/19/2025 9:06 AM [facility] RDW 18.5(H) 11.0 - 15.0 % 10/19/2025 9:06 AM [facility] Platelets 22(L) 140 - 400 10E3/uL 10/19/2025 9:06 AM [facility] Comment: CNV Specimen checked for clots. None detected. MPV 8.5 7.5 - 11.5 fL 10/19/2025 9:06 AM [facility] Whole Blood 10/19/2025 8:29 AM EST 10/19/2025 8:33 AM EST Aspen Parr MD LAB BLOOD ORDERABLES Final Resul t Performing Organization Address City/[facility]/ZIP Co de Phone Number [facility] [address] * (ABNORMAL) POC Glucose Monitoring Device (10/19/2025 8:28 AM EST) POC Glucose Monitoring Device 122(H) 70 - 100 mg/dL 10/19/2025 8:39 AM EST [facility] Blood 10/19/2025 8:28 AM EST 10/19/2025 8:38 AM EST Vani Winkler MD POINT OF CARE TEST ORDERABLE S Final Result Performing Organization Address [facility] Co de Phone Number [facility] [address] [facility]. [address] * (ABNORMAL) POC Glucose Monitoring Device (10/19/2025 7:07 AM EST) POC Glucose Monitoring Device 136(H) 70 - 100 mg/dL 10/19/2025 7:08 AM EST [facility] Blood 10/19/2025 7:07 AM EST 10/19/2025 7:08 AM EST Vani Winkler MD POINT OF CARE TEST ORDERABLE S Final Result Performing Organization Address City/[facility]/ZIP Co de Phone Number [facility] [address] [facility]. [address] * (ABNORMAL) POC Glucose Monitoring Device (10/19/2025 6:28 AM EST) POC Glucose Monitoring Device 109(H) 70 - 100 mg/dL 10/19/2025 6:29 AM EST [facility] Blood 10/19/2025 6:28 AM EST 10/19/2025 6:29 AM EST us Vani Winkler MD POINT OF CARE TEST ORDERABLE S Final Result Performing Organization Address City/[facility]/ZIP Co de Phone Number [facility] [address] * (ABNORMAL) POC Glucose Monitoring Device (10/19/2025 6:10 AM EST) POC Glucose Monitoring Device 108(H) 70 - 100 mg/dL 10/19/2025 6:12 AM EST [facility] Blood 10/19/2025 6:10 AM EST 10/19/2025 6:11 AM EST Vani Winkler MD POINT OF CARE TEST ORDERABLE S Final Result [facility] [address] * (ABNORMAL) POC Glucose Monitoring Device (10/19/2025 4:06 AM EST) POC Glucose Monitoring Device 115(H) 70 - 100 mg/dL 10/19/2025 4:07 AM EST [facility] Blood 10/19/2025 4:06 AM EST 10/19/2025 4:07 AM EST Vani Winkler MD POINT OF CARE TEST ORDERABLE S Final Result Performing Organization Address City/[facility]/ZIP Co de Phone Number [facility] [address] [facility]. [address] * (ABNORMAL) POC Glucose Monitoring Device (10/19/2025 2:04 AM EST) POC Glucose Monitoring Device 129(H) 70 - 100 mg/dL 10/19/2025 2:06 AM EST [facility] Blood 10/19/2025 2:04 AM EST 10/19/2025 2:05 AM EST Vani Winkler MD POINT OF CARE TEST ORDERABLE S Final Result [facility] [address] [facility]. [address] * (ABNORMAL) POC Glucose Monitoring Device (10/18/2025 11:57 PM EST) POC Glucose Monitoring Device 131(H) 70 - 100 mg/dL 10/18/2025 11:58 PM EST [facility] Blood 10/18/2025 11:5 7 PM EST 10/18/2025 11:58 PM EST us Vani Winkler MD POINT OF CARE TEST ORDERABLE S Final Result [facility] [address] [place] [address]. [address] * Lactic Acid (10/18/2025 10:20 PM EST) Pathologist [facility] Lactate 0.8 0.5 - 2.2 mmol/L 10/18/2025 11:03 PM EST [facility] Plasma 10/18/2025 10:2 0 PM EST 10/18/2025 10:26 PM EST us Aspen Parr MD LAB BLOOD ORDERABLES Final Resul t Performing Organization Address [facility]/ZIP Co de Phone Number [facility] [address] [facility]. [address] * Magnesium (10/18/2025 10:20 PM EST) Pathologist [facility] Magnesium 1.8 1.5 - 2.5 mg/dL 10/18/2025 11:18 PM EST [facility] Plasma 10/18/2025 10:2 0 PM EST 10/18/2025 10:26 PM EST Aspen Parr MD LAB BLOOD ORDERABLES Final Resul t Performing Organization Address [facility] Co de Phone Number [facility] [address] [place] [address]. [address] * (ABNORMAL) Hepatic Function Panel (10/18/2025 10:20 PM EST) Total Bilirubin 1.0 0.0 - 1.5 mg/dL 10/18/2025 11:18 PM EST [facility] Bilirubin, Direct 0.51(H) 0.00 - 0.40 mg/dL 10/18/2025 11:18 PM EST [facility] AST 717(H) 13 - 39 U/L 10/18/2025 11:18 PM EST [facility] ALT 792(H) 7 - 52 U/L 10/18/2025 11:18 PM EST [facility] Alkaline Phosphatase 62 36 - 125 U/L 10/18/2025 11:18 PM EST [facility] Total Protein 4.3(L) 6.4 - 8.9 g/dL 10/18/2025 11:18 PM EST [facility] Albumin 2.1(L) 3.5 - 5.7 g/dL 10/18/2025 11:18 PM EST [facility] Bilirubin, Indirect 0.49 0.00 - 1.10 mg/dL 10/18/2025 11:18 PM EST [facility] Plasma 10/18/2025 10:2 0 PM EST 10/18/2025 10:26 PM EST us Aspen Parr MD LAB BLOOD ORDERABLES Final Resul t [facility] [address] [id number], [facility] * (ABNORMAL) Renal Function Panel w/EGFR (10/18/2025 10:20 PM EST) Sodium 146 133 - 146 mmol/L 10/18/2025 11:05 PM EST [facility] Potassium 3.1(L) 3.5 - 5.3 mmol/L 10/18/2025 11:05 PM EST [facility] Chloride 113(H) 98 - 110 mmol/L 10/18/2025 11:05 PM EST [facility] CO2 24 21 - 33 mmol/L 10/18/2025 11:05 PM EST [facility] Comment:High lactate dehydro genase concentrations in patient samples may cause falsely increased bicarbonate results. If markedly elevated LDH is observed or suspected, please assess results in conjunction with patient`s clinical presentation. In cases of discrepant results, consider evaluating CO2 in with a blood gas order. Anion Gap 9 3 - 16 mmol/L 10/18/2025 11:05 PM EST [facility] BUN 32(H) 7 - 25 mg/dL 10/18/2025 11:05 PM EST [facility] Creatinine 1.09 0.60 - 1.30 mg/dL 10/18/2025 11:05 PM EST [facility] Glucose 129(H) 70 - 100 mg/dL 10/18/2025 11:05 PM EST [facility] Calcium 7.4(L) 8.6 - 10.3 mg/dL 10/18/2025 11:05 PM EST [facility] Phosphorus 4.0 2.1 - 4.7 mg/dL 10/18/2025 11:18 PM EST [facility] Albumin 2.1(L) 3.5 - 5.7 g/dL 10/18/2025 11:18 PM EST [facility] Osmolality, Calculated 311(H) 278 - 305 mOsm/kg 10/18/2025 11:05 PM EST [facility] EGFR 76 10/18/2025 11:05 PM EST [facility] Comment:As of 2022, the estimated [...] LAB BLOOD ORDERABLES Final Resul t [facility] [address] [place] [address], [facility] * (ABNORMAL) Protime-INR (10/18/2025 10:20 PM EST) Protime 21.9(H) 12.1 - 15.1 seconds 10/18/2025 10:52 PM EST [facility] INR 1.8(H) 0.9 - 1.1 10/18/2025 10:52 PM EST [facility] Comment: RECOMMENDED THERAPEUTIC RANGES USING INR : Stable oral anticoagulant therapy: 2.0 - 3.0 Mechanical prosthetic heart valve: 2.5 - 3.5 Recurrent acute myocardial infarction: 2.5 - 3.5 Plasma 10/18/2025 10:2 0 PM EST 10/18/2025 10:26 PM EST us Aspen Parr MD LAB BLOOD ORDERABLES Final Resul t [facility] [address] [place] [address], [facility] * (ABNORMAL) CBC (10/18/2025 10:20 PM EST) WBC 11.4(H) 3.8 - 10.8 10E3/uL 10/18/2025 10:59 PM EST [facility] RBC 2.92(L) 4.20 - 5.80 10E6/uL 10/18/2025 10:59 PM EST [facility] Hemoglobin 9.5(L) 13.2 - 17.1 g/dL 10/18/2025 10:59 PM EST [facility] Hematocrit 26.9(L) 38.5 - 50.0 % 10/18/2025 10:59 PM EST [facility] MCV 92.2 80.0 - 100.0 fL 10/18/2025 10:59 PM EST [facility] MCH 32.7 27.0 - 33.0 pg 10/18/2025 10:59 PM EST [facility] MCHC 35.4 32.0 - 36.0 g/dL 10/18/2025 10:59 PM EST [facility] RDW 18.3(H) 11.0 - 15.0 % 10/18/2025 10:59 PM EST [facility] Platelets 22(L) 140 - 400 10E3/uL 10/18/2025 10:59 PM EST [facility] Comment: CNV Specimen checked for clots. None detected. MPV 7.8 7.5 - 11.5 fL 10/18/2025 10:59 PM EST [facility] Whole Blood 10/18/2025 10:2 0 PM EST 10/18/2025 10:26 PM EST Aspen Parr MD LAB BLOOD ORDERABLES Final Resul t [facility] [address] [facility] * (ABNORMAL) POC Glucose Monitoring Device (10/18/2025 10:07 PM EST) POC Glucose Monitoring Device 134(H) 70 - 100 mg/dL 10/18/2025 10:08 PM EST [facility] Blood 10/18/2025 10:0 7 PM EST 10/18/2025 10:08 PM EST Vani Winkler MD POINT OF CARE TEST ORDERABLE S Final Result Performing Organization Address [facility] Co de Phone Number [facility] [address] [facility]. [address] * (ABNORMAL) POC Glucose Monitoring Device (10/18/2025 8:14 PM EST) POC Glucose Monitoring Device 138(H) 70 - 100 mg/dL 10/18/2025 8:15 PM EST [facility] Blood 10/18/2025 8:14 PM EST 10/18/2025 8:15 PM EST Vani Winkler MD POINT OF CARE TEST ORDERABLE S Final Result Performing Organization Address City/[facility]/ZIP Co de Phone Number [facility] [address] [facility]. [address] * Lactic Acid (10/18/2025 5:47 PM EST) Lactate 0.7 0.5 - 2.2 mmol/L 10/18/2025 8:43 PM EST [facility] Plasma 10/18/2025 5:47 PM EST 10/18/2025 7:56 PM EST Aspen Parr MD LAB BLOOD ORDERABLES Final Resul t [facility] [address] [facility]. [address] * Magnesium (10/18/2025 5:47 PM EST) Magnesium 1.9 1.5 - 2.5 mg/dL 10/18/2025 6:40 PM EST [facility] Plasma 10/18/2025 5:47 PM EST 10/18/2025 5:54 PM EST us Aspen Parr MD LAB BLOOD ORDERABLES Final Resul t Performing Organization Address City/[facility] Co de Phone Number [facility] [address] * (ABNORMAL) Hepatic Function Panel (10/18/2025 5:47 PM EST) Total Bilirubin 1.1 0.0 - 1.5 mg/dL 10/18/2025 6:40 PM EST [facility] Bilirubin, Direct 0.56(H) 0.00 - 0.40 mg/dL 10/18/2025 6:40 PM EST [facility] AST 965(H) 13 - 39 U/L 10/18/2025 6:40 PM EST [facility] ALT 871(H) 7 - 52 U/L 10/18/2025 6:40 PM EST [facility] Alkaline Phosphatase 61 36 - 125 U/L 10/18/2025 6:40 PM EST [facility] Total Protein 4.3(L) 6.4 - 8.9 g/dL 10/18/2025 6:40 PM EST [facility] Albumin 2.2(L) 3.5 - 5.7 g/dL 10/18/2025 6:40 PM EST [facility] Bilirubin, Indirect 0.54 0.00 - 1.10 mg/dL 10/18/2025 6:40 PM EST [facility] Plasma 10/18/2025 5:47 PM EST 10/18/2025 5:54 PM EST us Aspen Parr MD LAB BLOOD ORDERABLES Final Resul t [facility] [address] [place], [place] [address] * (ABNORMAL) Renal Function Panel w/EGFR (10/18/2025 5:47 PM EST) Sodium 144 133 - 146 mmol/L 10/18/2025 6:27 PM EST [facility] Potassium 3.4(L) 3.5 - 5.3 mmol/L 10/18/2025 6:27 PM [facility] Chloride 112(H) 98 - 110 mmol/L 10/18/2025 6:27 PM [facility] CO2 24 21 - 33 mmol/L 10/18/2025 6:27 PM EST [facility] Comment:High lactate dehydro genase concentrations in patient samples may cause falsely increased bicarbonate results. If markedly elevated LDH is observed or suspected, please assess results in conjunction with patient`s clinical presentation. In cases of discrepant results, consider evaluating CO2 in with a blood gas order. Anion Gap 8 3 - 16 mmol/L 10/18/2025 6:27 PM EST [facility] BUN 29(H) 7 - 25 mg/dL 10/18/2025 6:27 PM EST [facility] Creatinine 1.09 0.60 - 1.30 mg/dL 10/18/2025 6:27 PM [facility] Glucose 136(H) 70 - 100 mg/dL 10/18/2025 6:27 PM [facility] Calcium 7.5(L) 8.6 - 10.3 mg/dL 10/18/2025 6:27 PM [facility] Phosphorus 3.8 2.1 - 4.7 mg/dL 10/18/2025 6:40 PM [facility] Albumin 2.2(L) 3.5 - 5.7 g/dL 10/18/2025 6:40 PM EST [facility] Osmolality, Calculated 306(H) 278 - 305 mOsm/kg 10/18/2025 6:27 PM EST [facility] EGFR 76 10/18/2025 6:27 PM EST [facility] Comment:As of 2022, the estimated [...] LAB BLOOD ORDERABLES Final Resul t [facility] [address] * (ABNORMAL) Protime-INR (10/18/2025 5:47 PM EST) Protime 21.8(H) 12.1 - 15.1 seconds 10/18/2025 6:13 PM EST [facility] INR 1.8(H) 0.9 - 1.1 10/18/2025 6:13 PM EST [facility] Comment: RECOMMENDED THERAPEUTIC RANGES USING INR : Stable oral anticoagulant therapy: 2.0 - 3.0 Mechanical prosthetic heart valve: 2.5 - 3.5 Recurrent acute myocardial infarction: 2.5 - 3.5 Plasma 10/18/2025 5:47 PM EST 10/18/2025 5:54 PM EST Aspen Parr MD LAB BLOOD ORDERABLES Final Resul t [facility] [address] * (ABNORMAL) CBC (10/18/2025 5:47 PM EST) [facility] WBC 11.8(H) 3.8 - 10.8 10E3/uL 10/18/2025 6:06 PM EST [facility] RBC 3.06(L) 4.20 - 5.80 10E6/uL 10/18/2025 6:06 PM EST [facility] Hemoglobin 10.0(L) 13.2 - 17.1 g/dL 10/18/2025 6:06 PM EST [facility] Hematocrit 28.3(L) 38.5 - 50.0 % 10/18/2025 6:06 PM EST [facility] MCV 92.5 80.0 - 100.0 fL 10/18/2025 6:06 PM EST [facility] MCH 32.5 27.0 - 33.0 pg 10/18/2025 6:06 PM EST [facility] MCHC 35.2 32.0 - 36.0 g/dL 10/18/2025 6:06 PM EST [facility] RDW 18.6(H) 11.0 - 15.0 % 10/18/2025 6:06 PM EST [facility] Platelets 22(L) 140 - 400 10E3/uL 10/18/2025 6:06 PM EST [facility] Comment: CNV Specimen checked for clots. None detected. MPV 7.7 7.5 - 11.5 fL 10/18/2025 6:06 PM EST [facility] Whole Blood 10/18/2025 5:47 PM EST 10/18/2025 5:54 PM EST Aspen Parr MD LAB BLOOD ORDERABLES Final Resul t [facility] [address] [facility]. [address] * (ABNORMAL) POC Glucose Monitoring Device (10/18/2025 5:45 PM EST) POC Glucose Monitoring Device 135(H) 70 - 100 mg/dL 10/18/2025 5:46 PM EST [facility] Blood 10/18/2025 5:45 PM EST 10/18/2025 5:46 PM EST Vani Winkler MD POINT OF CARE TEST ORDERABLE S Final Result [facility] [address] [facility]. [address] * (ABNORMAL) POC Glucose Monitoring Device (10/18/2025 3:06 PM EST) POC Glucose Monitoring Device 128(H) 70 - 100 mg/dL 10/18/2025 3:07 PM EST [facility] Blood 10/18/2025 3:06 PM EST 10/18/2025 3:07 PM EST Vani Winkler MD POINT OF CARE TEST ORDERABLE S Final Result Performing Organization Address City/[facility]/ZIP Co de Phone Number [facility] [address] [facility]. [address] * (ABNORMAL) POC Glucose Monitoring Device (10/18/2025 1:15 PM EST) POC Glucose Monitoring Device 128(H) 70 - 100 mg/dL 10/18/2025 1:15 PM EST [facility] Blood 10/18/2025 1:15 PM EST 10/18/2025 1:15 PM EST Vani Winkler MD POINT OF CARE TEST ORDERABLE S Final Result [facility] [address] [facility]. [address] * (ABNORMAL) POC Glucose Monitoring Device (10/18/2025 12:12 PM EST) POC Glucose Monitoring Device 124(H) 70 - 100 mg/dL 10/18/2025 12:13 PM EST [facility] Blood 10/18/2025 12:1 2 PM EST 10/18/2025 12:13 PM EST Vani Winkler MD POINT OF CARE TEST ORDERABLE S Final Result Performing Organization Address City/[facility]/ZIP Co de Phone Number [facility] [address] * Prepare Fresh Frozen Plasma (10/18/2025 11:58 AM EST) Product Code [id number] HCLL Unit Number [id number] HCLL Dispense Status Released from Crossmatch_RE HCLL Blood Expiration Date HCLL Coding System [id number] HCLL Product Code Y4366S38 HCLL Unit Number [id number] HCLL Dispense Status Released from Crossmatch_RE HCLL Blood Expiration Date HCLL Coding System [id number] HCLL Product Code L5960S18 HCLL Unit Number [id number] HCLL Dispense Status Released from Crossmatch_RE HCLL Blood Expiration Date HCLL Coding System [id number] HCLL Product Code U6472Y01 HCLL Unit Number [id number] HCLL Dispense Status Released from Crossmatch_RE HCLL Blood Expiration Date HCLL Coding System [id number] HCLL Product Code H3381K86 HCLL Unit Number [id number] HCLL Dispense Status Released from Crossmatch_RE HCLL Blood Expiration Date HCLL Coding System [id number] HCLL us Attending Provider Unknown BLOOD BANK PRODUCT OR DERABLES Final Result HCLL * Lactic Acid (10/18/2025 11:21 AM EST) Lactate 0.7 0.5 - 2.2 mmol/L 10/18/2025 12:05 PM EST [facility] Plasma 10/18/2025 11:2 1 AM EST 10/18/2025 11:25 AM EST Aspen Parr MD LAB BLOOD ORDERABLES Final Resul t [facility] [address] [facility]. [address] * Magnesium (10/18/2025 11:21 AM EST) Magnesium 2.0 1.5 - 2.5 mg/dL 10/18/2025 12:23 PM EST [facility] Plasma 10/18/2025 11:2 1 AM EST 10/18/2025 11:25 AM EST us Aspen Parr MD LAB BLOOD ORDERABLES Final Resul t Performing Organization Address City/[facility] Co de Phone Number [facility] [address] [facility]. [address] * (ABNORMAL) Hepatic Function Panel (10/18/2025 11:21 AM EST) Total Bilirubin 1.3 0.0 - 1.5 mg/dL 10/18/2025 12:23 PM EST [facility] Bilirubin, Direct 0.74(H) 0.00 - 0.40 mg/dL 10/18/2025 12:23 PM EST [facility] AST 1,689(H) 13 - 39 U/L 10/18/2025 12:23 PM EST [facility] ALT 1034(H) 7 - 52 U/L 10/18/2025 12:23 PM EST [facility] Alkaline Phosphatase 60 36 - 125 U/L 10/18/2025 12:23 PM EST [facility] Total Protein 4.3(L) 6.4 - 8.9 g/dL 10/18/2025 12:23 PM EST [facility] Albumin 2.3(L) 3.5 - 5.7 g/dL 10/18/2025 12:23 PM EST [facility] Bilirubin, Indirect 0.56 0.00 - 1.10 mg/dL 10/18/2025 12:23 PM EST [facility] Plasma 10/18/2025 11:2 1 AM EST 10/18/2025 11:25 AM EST us Aspen Parr MD LAB BLOOD ORDERABLES Final Resul t [facility] [address] [place] [address], [facility] * (ABNORMAL) Renal Function Panel w/EGFR (10/18/2025 11:21 AM EST) Sodium 146 133 - 146 mmol/L 10/18/2025 12:06 PM [facility] Potassium 3.9 3.5 - 5.3 mmol/L 10/18/2025 12:06 PM [facility] Chloride 114(H) 98 - 110 mmol/L 10/18/2025 12:06 PM [facility] CO2 25 21 - 33 mmol/L 10/18/2025 12:06 PM [facility] Comment:High lactate dehydro genase concentrations in patient samples may cause falsely increased bicarbonate results. If markedly elevated LDH is observed or suspected, please assess results in conjunction with patient`s clinical presentation. In cases of discrepant results, consider evaluating CO2 in with a blood gas order. Anion Gap 7 3 - 16 mmol/L 10/18/2025 12:06 PM [facility] BUN 26(H) 7 - 25 mg/dL 10/18/2025 12:06 PM [facility] Creatinine 1.01 0.60 - 1.30 mg/dL 10/18/2025 12:06 PM [facility] Glucose 113(H) 70 - 100 mg/dL 10/18/2025 12:06 PM [facility] Calcium 7.8(L) 8.6 - 10.3 mg/dL 10/18/2025 12:06 PM [facility] Phosphorus 3.1 2.1 - 4.7 mg/dL 10/18/2025 12:23 PM [facility] Albumin 2.3(L) 3.5 - 5.7 g/dL 10/18/2025 12:23 PM [facility] Osmolality, Calculated 308(H) 278 - 305 mOsm/kg 10/18/2025 12:06 PM EST [facility] EGFR 83 10/18/2025 12:06 PM EST [...] LAB BLOOD ORDERABLES Final Resul t [facility] [address] * (ABNORMAL) Protime-INR (10/18/2025 11:21 AM EST) Protime 23.6(H) 12.1 - 15.1 seconds 10/18/2025 11:44 AM EST [facility] INR 2.0(H) 0.9 - 1.1 10/18/2025 11:44 AM EST [facility] Comment: RECOMMENDED THERAPEUTIC RANGES USING INR : Stable oral anticoagulant therapy: 2.0 - 3.0 Mechanical prosthetic heart valve: 2.5 - 3.5 Recurrent acute myocardial infarction: 2.5 - 3.5 Plasma 10/18/2025 11:2 1 AM EST 10/18/2025 11:25 AM EST Aspen Parr MD LAB BLOOD ORDERABLES Final Resul t [facility] [address] * (ABNORMAL) CBC (10/18/2025 11:21 AM EST) WBC 10.9(H) 3.8 - 10.8 10E3/uL 10/18/2025 11:44 AM EST [facility] RBC 3.10(L) 4.20 - 5.80 10E6/uL 10/18/2025 11:44 AM EST [facility] Hemoglobin 10.2(L) 13.2 - 17.1 g/dL 10/18/2025 11:44 AM EST [facility] Hematocrit 29.0(L) 38.5 - 50.0 % 10/18/2025 11:44 AM EST [facility] MCV 93.7 80.0 - 100.0 fL 10/18/2025 11:44 AM EST [facility] MCH 32.9 27.0 - 33.0 pg 10/18/2025 11:44 AM EST [facility] MCHC 35.1 32.0 - 36.0 g/dL 10/18/2025 11:44 AM EST [facility] RDW 18.4(H) 11.0 - 15.0 % 10/18/2025 11:44 AM EST [facility] Platelets 29(L) 140 - 400 10E3/uL 10/18/2025 11:44 AM EST [facility] Comment:CNV MPV 7.6 7.5 - 11.5 fL 10/18/2025 11:44 AM EST [facility] Whole Blood 10/18/2025 11:2 1 AM EST 10/18/2025 11:25 AM EST us Aspen Parr MD LAB BLOOD ORDERABLES Final Resul t [facility] [address] * (ABNORMAL) POC Glucose Monitoring Device (10/18/2025 11:04 AM EST) POC Glucose Monitoring Device 121(H) 70 - 100 mg/dL 10/18/2025 11:05 AM EST [facility] Blood 10/18/2025 11:0 4 AM EST 10/18/2025 11:05 AM EST us Vani Winkler MD POINT OF CARE TEST ORDERABLE S Final Result Performing Organization Address [facility] Co de Phone Number [facility] [address] * (ABNORMAL) POC Glucose Monitoring Device (10/18/2025 10:29 AM EST) [facility] POC Glucose Monitoring Device 120(H) 70 - 100 mg/dL 10/18/2025 10:34 AM EST [facility] Blood 10/18/2025 10:2 9 AM EST 10/18/2025 10:34 AM EST us Vani Winkler MD POINT OF CARE TEST ORDERABLE S Final Result Performing Organization Address [facility] de Phone Number [facility] [address] * US Duplex Bgc-Tyy-Lrorcur Comp (10/18/2025 9:35 AM EST) Anatomical Region [...] EXAM: US ABDOMEN LIMITED EXAM: US DUPLEX [id number] COMPLETE INDICATION: Post-op liver transplant Day 1 [...] EXAM: US ABDOMEN LIMITED EXAM: US DUPLEX [id number] COMPLETE INDICATION: Post-op liver transplant Day 1 [...] 9:53 AM EST us Aspen Parr MD [facility] US ORDERABLES Final Result * US Abdomen [...] EXAM: US ABDOMEN LIMITED EXAM: US DUPLEX [id number] COMPLETE INDICATION: Post-op liver transplant Day 1 [...] EXAM: US ABDOMEN LIMITED EXAM: US DUPLEX [id number] COMPLETE INDICATION: Post-op liver transplant Day 1 [...] 9:53 AM EST Aspen Parr MD [facility] ORDERABLES Final Result * (ABNORMAL) POC Glucose Monitoring Device (10/18/2025 9:11 AM EST) POC Glucose Monitoring Device 165(H) 70 - 100 mg/dL 10/18/2025 9:13 AM EST [facility] Blood 10/18/2025 9:11 AM EST 10/18/2025 9:12 AM EST Vani Winkler MD POINT OF CARE TEST ORDERABLE S Final Result Performing Organization Address City/State/[facility] Co de Phone Number [facility] [address] * (ABNORMAL) POC Glucose Monitoring Device (10/18/2025 7:56 AM EST) POC Glucose Monitoring Device 179(H) 70 - 100 mg/dL 10/18/2025 7:57 AM EST [facility] Blood 10/18/2025 7:56 AM EST 10/18/2025 7:57 AM EST Vani Winkler MD POINT OF CARE TEST ORDERABLE S Final Result [facility] [address] [place] [address], [facility] * (ABNORMAL) POC Glucose Monitoring Device (10/18/2025 6:59 AM EST) POC Glucose Monitoring Device 187(H) 70 - 100 mg/dL 10/18/2025 7:00 AM EST [facility] Blood 10/18/2025 6:59 AM EST 10/18/2025 7:00 AM EST us Vani Winkler MD POINT OF CARE TEST ORDERABLE S Final Result [facility] [address] * X-ray Portable Chest (10/18/2025 6:37 [...] below level of diaphragms and outside the avgzq-gq-lygi. Right internal jugular approach pulmonary artery catheter [...] courses below level of diaphragms andoutside the vslif-ut-lgyr. Right internal jugular approach pulmonaryartery catheter projects [...] Units (10/18/2025 6:17 AM EST) Product Code M4326J74 HCLL Unit Number [id number] HCLL Dispense Status Presumed Transfused_PT HCLL Blood Expiration Date HCLL Coding System BZHV266 HCLL Blood Bank Product Oskar Torres MD BLOOD BANK PRODUCT ORDERABLES Final Result HCLL * Prepare Platelets, leukoreduced, 2 Units (10/18/2025 6:17 AM EST) Product Code TE444X69 HCLL Unit Number [id number] HCLL Dispense Status Presumed Transfused_PT HCLL Blood Expiration Date HCLL Coding System SNPX713 HCLL Product Code D3674B00 HCLL Unit Number [id number] HCLL Dispense Status Presumed Transfused_PT HCLL Blood Expiration Date HCLL Coding System XQKV283 HCLL Blood Bank Product Slade Munoz MD BLOOD BANK PRODUCT ORDERABLES Fi nal Result HCLL * Prepare RBC, leukoreduced, 5 Units (10/18/2025 6:16 AM EST) Product Code J5526E14 HCLL Unit Number [id number] HCLL Dispense Status Presumed Transfused_PT HCLL Blood Expiration Date HCLL Coding System TBDG512 HCLL Product Code Z1430Y13 HCLL Unit Number [id number] HCLL Dispense Status Presumed Transfused_PT HCLL Blood Expiration Date HCLL Coding System CYQL057 HCLL Product Code X6257F62 HCLL Unit Number [id number] HCLL Dispense Status Presumed Transfused_PT HCLL Blood Expiration Date HCLL Coding System FCXO822 HCLL Product Code D2270J04 HCLL Unit Number [id number] HCLL Dispense Status Released from Crossmatch_RE HCLL Blood Expiration Date HCLL Coding System AYLF418 HCLL Product Code N3037Q58 HCLL Unit Number [id number] HCLL Dispense Status Presumed Transfused_PT HCLL Blood Expiration Date HCLL Coding System HJBX220 HCLL Blood Bank Product Kassi INTERIANO BLOOD BANK PRODUCT ORDERABLES Final Result Performing Organization Address City/[facility] Co de Phone Number HCLL * Prepare Cryoprecipitate (10/18/2025 6:15 AM EST) Product Code D5453M47 HCLL Unit Number [id number] HCLL Dispense Status Presumed Transfused_PT HCLL Blood Expiration Date HCLL Coding System PYLR443 HCLL Attending Provider Unknown BLOOD BANK PRODUCT OR DERABLES Final Result Performing Organization Address City/[facility]/ZIP Co de Phone Number HCLL * Prepare Cryoprecipitate, 1 Units (10/18/2025 6:15 AM EST) Product Code Y8456M35 HCLL Unit Number [id number] HCLL Dispense Status Presumed Transfused_PT HCLL Blood Expiration Date HCLL Coding System UJWW708 HCLL Blood Bank Product Oskar Torres MD BLOOD BANK PRODUCT ORDERABLES Final Result Performing Organization Address [facility] de Phone Number HCLL * Prepare Cryoprecipitate, 1 Units (10/18/2025 6:15 AM EST) Product Code H3760K78 HCLL Unit Number [id number] HCLL Dispense Status Presumed Transfused_PT HCLL Blood Expiration Date HCLL Coding System FUOQ046 HCLL Product Code L1449L84 HCLL Unit Number [id number] HCLL Dispense Status Presumed Transfused_PT HCLL Blood Expiration Date HCLL Coding System UAPC767 HCLL Blood Bank Product Shannan Salas MD BLOOD BANK PRODUCT ORDERABLE S Final Result Performing Organization Address [facility] de Phone Number HCLL * Prepare Cryoprecipitate, 1 Units (10/18/2025 6:15 AM EST) Product Code L8184V60 HCLL Unit Number [id number] HCLL Dispense Status Presumed Transfused_PT HCLL Blood Expiration Date HCLL Coding System LHEN928 HCLL Blood Bank Product Slade Munoz MD BLOOD BANK PRODUCT ORDERABLES Fi nal Result Performing Organization Address [facility] Co de Phone Number HC[facility] * Prepare Cryoprecipitate, 1 Units (10/18/2025 6:15 AM EST) Product Code L5460L64 HCLL Unit Number [id number] HCLL Dispense Status Presumed Transfused_PT HCLL Blood Expiration Date HCLL Coding System PAMQ413 HCLL Blood Bank Product us Slade Munoz MD BLOOD BANK PRODUCT ORDERABLES Fi nal Result HCLL * Prepare RBC, leukoreduced (10/18/2025 6:15 AM EST) Product Code H2440G10 HCLL Unit Number [id number] HCLL Dispense Status Released from Crossmatch_RE HCLL Blood Expiration Date HCLL Coding System WJUR807 HCLL Product Code X2859W15 HCLL Unit Number [id number] HCLL Dispense Status Released from Crossmatch_RE HCLL Blood Expiration Date HCLL Coding System SDJQ626 HCLL Product Code L5377V89 HCLL Unit Number [id number] HCLL Dispense Status Released from Crossmatch_RE HCLL Blood Expiration Date HCLL Coding System ZCKD315 HCLL Product Code V3944H21 HCLL Unit Number [id number] HCLL Dispense Status Released from Crossmatch_RE HCLL Blood Expiration Date HCLL Coding System FUMU758 HCLL Product Code Q2390S89 HCLL Unit Number [id number] HCLL Dispense Status Presumed Transfused_PT HCLL Blood Expiration Date HCLL Coding System SDAN684 HCLL us Attending Provider Unknown BLOOD BANK PRODUCT OR DERABLES Final Result HCLL * Prepare Fresh Frozen Plasma, 5 Units (10/18/2025 6:15 AM EST) Product Code U1116B90 HCLL Unit Number [id number] HCLL Dispense Status Presumed Transfused_PT HCLL Blood Expiration Date HCLL Coding System MMFB130 HCLL Product Code D7158N40 HCLL Unit Number [id number] HCLL Dispense Status Presumed Transfused_PT HCLL Blood Expiration Date HCLL Coding System GPCI984 HCLL Product Code T4546J69 HCLL Unit Number [id number] HCLL Dispense Status Presumed Transfused_PT HCLL Blood Expiration Date HCLL Coding System DEUK223 HCLL Product Code O5882A61 HCLL Unit Number [id number] HCLL Dispense Status Presumed Transfused_PT HCLL Blood Expiration Date HCLL Coding System HWDH057 HCLL Product Code Q4114X83 HCLL Unit Number [id number] HCLL Dispense Status Presumed Transfused_PT HCLL Blood Expiration Date HCLL Coding System DKOL089 HCLL Blood Bank Product Kassi INTERIANO BLOOD BANK PRODUCT ORDERABLES Final Result HCLL * (ABNORMAL) POC Glucose Monitoring Device (10/18/2025 6:06 AM EST) [facility] POC Glucose Monitoring Device 214(H) 70 - 100 mg/dL 10/18/2025 6:06 AM EST [facility] Blood 10/18/2025 6:06 AM EST 10/18/2025 6:06 AM EST Vani Winkler MD POINT OF CARE TEST ORDERABLE S Final Result [facility] [address] * (ABNORMAL) Blood gas, arterial (10/18/2025 5:19 AM EST) [facility] O2 Sat, Arterial 97 10/18/2025 5:28 AM EST [facility] FIO2 40 10/18/2025 5:28 AM EST [facility] pH, Arterial 7.34(L) 7.35 - 7.45 10/18/2025 5:28 AM EST [facility] pCO2, Arterial 48(H) 35 - 45 mm Hg 10/18/2025 5:28 AM EST [facility] pO2, Arterial 84 80 - 100 mm Hg 10/18/2025 5:28 AM EST [facility] HCO3, Arterial 25 22 - 26 mmol/L 10/18/2025 5:28 AM EST [facility] CO2 Content,Arteri al 27 23 - 27 mmol/L 10/18/2025 5:28 AM EST [facility] Base Excess, Arterial -0.2 -2.0 - 3.0 mmol/L 10/18/2025 5:28 AM EST [facility] %HBO2, Arterial 94.1(L) 95.0 - 98.0 % 10/18/2025 5:28 AM EST [facility] Carboxyhemoglo bin, Arterial 2.5 % 10/18/2025 5:28 AM EST [facility] Comment: CARBOXYHEMOGLOBIN (CO) REFERENCE RANGES: Non-Smokers: <2 % Smokers: <8 % TOXIC: >20 % Methemoglobin, Arterial 0.5 0.0 - 1.5 % 10/18/2025 5:28 AM EST [facility] Blood, Arterial 10/18/2025 5 :19 AM EST 10/18/2025 5:25 AM EST us Vani Winkler MD LAB BLOOD ORDERABLES Final R esult Performing Organization Address City/[facility]/ZIP Co de Phone Number [facility] [address] * Lactic Acid (10/18/2025 5:02 AM EST) Lactate 1.0 0.5 - 2.2 mmol/L 10/18/2025 5:47 AM EST [facility] Plasma 10/18/2025 5:02 AM EST 10/18/2025 5:09 AM EST us Aspen Parr MD LAB BLOOD ORDERABLES Final Resul t [facility] [address] [facility]. [address] * Magnesium (10/18/2025 5:02 AM EST) Magnesium 2.0 1.5 - 2.5 mg/dL 10/18/2025 6:05 AM EST [facility] Plasma 10/18/2025 5:02 AM EST 10/18/2025 5:13 AM EST Aspen Parr MD LAB BLOOD ORDERABLES Final Resul t [facility] [address] [facility] * (ABNORMAL) Hepatic Function Panel (10/18/2025 5:02 AM EST) Total Bilirubin 1.5 0.0 - 1.5 mg/dL 10/18/2025 6:05 AM EST [facility] Bilirubin, Direct 0.77(H) 0.00 - 0.40 mg/dL 10/18/2025 6:05 AM EST [facility] AST 2,612(H) 13 - 39 U/L 10/18/2025 6:05 AM [facility] ALT 1072(H) 7 - 52 U/L 10/18/2025 6:05 AM [facility] Alkaline Phosphatase 50 36 - 125 U/L 10/18/2025 6:05 AM EST [facility] Total Protein 4.0(L) 6.4 - 8.9 g/dL 10/18/2025 6:05 AM [facility] Albumin 2.2(L) 3.5 - 5.7 g/dL 10/18/2025 6:05 AM [facility] Bilirubin, Indirect 0.73 0.00 - 1.10 mg/dL 10/18/2025 6:05 AM EST [facility] Plasma 10/18/2025 5:02 AM EST 10/18/2025 5:13 AM EST Aspen Parr MD LAB BLOOD ORDERABLES Final Resul t [facility] [address] [place] [address], [facility] * (ABNORMAL) Renal Function Panel w/EGFR (10/18/2025 5:02 AM EST) Sodium 146 133 - 146 mmol/L 10/18/2025 6:05 AM [facility] Potassium 3.4(L) 3.5 - 5.3 mmol/L 10/18/2025 6:05 AM [facility] Chloride 111(H) 98 - 110 mmol/L 10/18/2025 6:05 AM [facility] CO2 26 21 - 33 mmol/L 10/18/2025 6:05 AM [facility] Comment:High lactate dehydro genase concentrations in patient samples may cause falsely increased bicarbonate results. If markedly elevated LDH is observed or suspected, please assess results in conjunction with patient`s clinical presentation. In cases of discrepant results, consider evaluating CO2 in with a blood gas order. Anion Gap 9 3 - 16 mmol/L 10/18/2025 6:05 AM [facility] BUN 22 7 - 25 mg/dL 10/18/2025 6:05 AM [facility] Creatinine 0.93 0.60 - 1.30 mg/dL 10/18/2025 6:05 AM [facility] Glucose 193(H) 70 - 100 mg/dL 10/18/2025 6:05 AM [facility] Calcium 7.8(L) 8.6 - 10.3 mg/dL 10/18/2025 6:05 AM [facility] Phosphorus 3.0 2.1 - 4.7 mg/dL 10/18/2025 6:05 AM [facility] Albumin 2.2(L) 3.5 - 5.7 g/dL 10/18/2025 6:05 AM [facility] Osmolality, Calculated 311(H) 278 - 305 mOsm/kg 10/18/2025 6:05 AM [facility] EGFR >90 10/18/2025 6:05 AM [facility] Comment: As of 2022, [...] ORDERABLES Final Resul t Performing Organization Address City/[facility] Co de Phone Number [facility] [address] * (ABNORMAL) Protime-INR (10/18/2025 5:02 AM EST) Protime 26.0(H) 12.1 - 15.1 seconds 10/18/2025 5:32 AM EST [facility] INR 2.2(H) 0.9 - 1.1 10/18/2025 5:32 AM EST [facility] Comment: RECOMMENDED THERAPEUTIC RANGES USING INR : Stable oral anticoagulant therapy: 2.0 - 3.0 Mechanical prosthetic heart valve: 2.5 - 3.5 Recurrent acute myocardial infarction: 2.5 - 3.5 Plasma 10/18/2025 5:02 AM EST 10/18/2025 5:13 AM EST Aspen Parr MD LAB BLOOD ORDERABLES Final Resul t Performing Organization Address [facility] Co de Phone Number [facility] [address] [facility]. [address] * (ABNORMAL) CBC (10/18/2025 5:02 AM EST) WBC 7.0 3.8 - 10.8 10E3/uL 10/18/2025 5:27 AM EST [facility] RBC 2.94(L) 4.20 - 5.80 10E6/uL 10/18/2025 5:27 AM EST [facility] Hemoglobin 9.6(L) 13.2 - 17.1 g/dL 10/18/2025 5:27 AM EST [facility] Hematocrit 27.6(L) 38.5 - 50.0 % 10/18/2025 5:27 AM EST [facility] MCV 94.0 80.0 - 100.0 fL 10/18/2025 5:27 AM EST [facility] MCH 32.6 27.0 - 33.0 pg 10/18/2025 5:27 AM EST [facility] MCHC 34.7 32.0 - 36.0 g/dL 10/18/2025 5:27 AM EST [facility] RDW 19.0(H) 11.0 - 15.0 % 10/18/2025 5:27 AM EST [facility] Platelets 36(L) 140 - 400 10E3/uL 10/18/2025 5:27 AM EST [facility] Comment:CNV MPV 8.1 7.5 - 11.5 fL 10/18/2025 5:27 AM EST [facility] Whole Blood 10/18/2025 5:02 AM EST 10/18/2025 5:13 AM EST us Aspen Parr MD LAB BLOOD ORDERABLES Final Resul t [facility] [address] [place] [address], [facility] * (ABNORMAL) POC Glucose Monitoring Device (10/18/2025 5:00 AM EST) Pathologist [facility] POC Glucose Monitoring Device 231(H) 70 - 100 mg/dL 10/18/2025 5:06 AM EST [facility] Blood 10/18/2025 5:00 AM EST 10/18/2025 5:06 AM EST Vani Winkler MD POINT OF CARE TEST ORDERABLE S Final Result Performing Organization Address [facility] Co de Phone Number [facility] [address] [place] [address]. [address] * (ABNORMAL) POC Glucose Monitoring Device (10/18/2025 4:05 AM EST) POC Glucose Monitoring Device 244(H) 70 - 100 mg/dL 10/18/2025 4:06 AM EST [facility] Blood 10/18/2025 4:05 AM EST 10/18/2025 4:06 AM EST us Vani Winkler MD POINT OF CARE TEST ORDERABLE S Final Result Performing Organization Address [facility] Co de Phone Number [facility] [address] [place] [address]. [address] * (ABNORMAL) POC Glucose Monitoring Device (10/18/2025 3:02 AM EST) POC Glucose Monitoring Device 246(H) 70 - 100 mg/dL 10/18/2025 3:07 AM EST [facility] Blood 10/18/2025 3:02 AM EST 10/18/2025 3:07 AM EST Vani Winkler MD POINT OF CARE TEST ORDERABLE S Final Result Performing Organization Address City/[facility] Co de Phone Number [facility] [address] [place] [address]. [address] * (ABNORMAL) POC Glucose Monitoring Device (10/18/2025 2:05 AM EST) POC Glucose Monitoring Device 249(H) 70 - 100 mg/dL 10/18/2025 2:14 AM EST [facility] Blood 10/18/2025 2:05 AM EST 10/18/2025 2:14 AM EST us Vani Winkler MD POINT OF CARE TEST ORDERABLE S Final Result Performing Organization Address City/[facility]/ZIP Co de Phone Number [facility] [address] [facility]. [address] * (ABNORMAL) POC Glucose Monitoring Device (10/18/2025 1:06 AM EST) POC Glucose Monitoring Device 237(H) 70 - 100 mg/dL 10/18/2025 1:07 AM EST [facility] Blood 10/18/2025 1:06 AM EST 10/18/2025 1:07 AM EST Vani Winkler MD POINT OF CARE TEST ORDERABLE S Final Result Performing Organization Address [facility] Co de Phone Number [facility] [address] [facility]. [address] * (ABNORMAL) POC Glucose Monitoring Device (10/17/2025 11:55 PM EST) POC Glucose Monitoring Device 227(H) 70 - 100 mg/dL 10/18/2025 12:06 AM EST [facility] Blood 10/17/2025 11:5 5 PM EST 10/18/2025 12:06 AM EST Vani Winkler MD POINT OF CARE TEST ORDERABLE S Final Result Performing Organization Address [facility] Co de Phone Number [facility] [address] * XR Portable Feeding Tube Check [...] - 5.40 mg/dL 10/17/2025 11:15 PM EST [facility] Comment:Free calcium levels vary inversely with pH by approximately 5% for each 0.1 unit of pH change. Assay results have been normalized to pH = 7.40. Serum 10/17/2025 10:5 0 PM EST 10/17/2025 10:55 PM EST Narrative [facility] - 10/17/2025 11:15 PM EST This test has been developed and its performance characteristics determined by [facility] which is certified under the Clinical [...] El MD LAB BLOOD ORDERABLES Final Result [facility] [address] * (ABNORMAL) TEG-Standard Global Hemostasis (Rapid TEG with Heparin Effect, Contains a Baseline TEG) (10/17/2025 10:50 PM EST) Citrated Kaolin Reaction Time (TEGHEPARINASE) 12.7(H) 4.6 - 9.1 minutes 10/18/2025 12:03 AM EST [facility] Citrated Rapid Teg Maximum Amplitude (TEGHEPARINASE) 47.8(L) 52.0 - 70.0 mm 10/18/2025 12:03 AM EST [facility] Citrated Functional Fibrinogen Maximum Amplitude (TEGHEPARINASE) 16.8 15.0 - 32.0 mm 10/18/2025 12:03 AM EST [facility] Citrated Kaolin W/Heparinase Reaction Time (TEGHEPARINASE) 11.0(H) 4.3 - 8.3 minutes 10/18/2025 12:03 AM EST [facility] Citrated Kaolin K-Time (TEGHEPARINASE) 4.9(H) 0.8 - 2.1 minutes 10/18/2025 12:03 AM EST [facility] Citrated Kaolin Angle (TEGHEPARINASE) 40.0(L) 63.0 - 78.0 degrees 10/18/2025 12:03 AM EST [facility] Citrated Kaolin Maximum Amplitude (TEGHEPARINASE) 45.2(L) 52.0 - 69.0 mm 10/18/2025 12:03 AM EST [facility] Citrated Functional Fibrinogen- Fibrinogen Level (TEGHEPARINASE) 306.6 278.0 - 581.0 mg/dL 10/18/2025 12:03 AM EST [facility] Whole Blood (Citrate) 10/17/2025 10:50 PM EST 10/17/2025 10:55 PM EST Aspen Parr MD LAB BLOOD ORDERABLES Final Resul t [facility] [address] [place] [address] * Lactic Acid (10/17/2025 10:50 PM EST) Lactate 1.1 0.5 - 2.2 mmol/L 10/17/2025 11:51 PM EST [facility] Plasma 10/17/2025 10:5 0 PM EST 10/17/2025 10:55 PM EST Aspen Parr MD LAB BLOOD ORDERABLES Final Resul t [facility] [address] * Fibrinogen (10/17/2025 10:50 PM EST) Fibrinogen 253 218 - 406 mg/dL 10/17/2025 11:06 PM EST [facility] Plasma 10/17/2025 10:5 0 PM EST 10/17/2025 10:55 PM EST Aspen Parr MD LAB BLOOD ORDERABLES Final Resul t Performing Organization Address [facility] Co de Phone Number [facility] [address] [facility]. [address] * (ABNORMAL) Protime-INR (10/17/2025 10:50 PM EST) Protime 25.2(H) 12.1 - 15.1 seconds 10/17/2025 11:06 PM EST [facility] INR 2.1(H) 0.9 - 1.1 10/17/2025 11:06 PM EST [facility] Comment: RECOMMENDED THERAPEUTIC RANGES USING INR : Stable oral anticoagulant therapy: 2.0 - 3.0 Mechanical prosthetic heart valve: 2.5 - 3.5 Recurrent acute myocardial infarction: 2.5 - 3.5 Plasma 10/17/2025 10:5 0 PM EST 10/17/2025 10:55 PM EST us Aspen Parr MD LAB BLOOD ORDERABLES Final Resul t Performing Organization Address [facility] Co de Phone Number [facility] [address] [facility]. [address] * (ABNORMAL) Blood gas, arterial (10/17/2025 10:50 PM EST) O2 Sat, Arterial 100 10/17/2025 11:00 PM EST [facility] FIO2 80 fio2 10/17/2025 11:00 PM EST [facility] pH, Arterial 7.38 7.35 - 7.45 10/17/2025 11:00 PM EST [facility] pCO2, Arterial 41 35 - 45 mm Hg 10/17/2025 11:00 PM EST [facility] pO2, Arterial 216(H) 80 - 100 mm Hg 10/17/2025 11:00 PM EST [facility] HCO3, Arterial 24 22 - 26 mmol/L 10/17/2025 11:00 PM EST [facility] CO2 Content,Arteri al 26 23 - 27 mmol/L 10/17/2025 11:00 PM EST [facility] Base Excess, Arterial -0.8 -2.0 - 3.0 mmol/L 10/17/2025 11:00 PM EST [facility] %HBO2, Arterial 95.2 95.0 - 98.0 % 10/17/2025 11:00 PM EST [facility] Carboxyhemoglo bin, Arterial 3.3 % 10/17/2025 11:00 PM EST [facility] Comment: CARBOXYHEMOGLOBIN (CO) REFERENCE RANGES: Non-Smokers: <2 % Smokers: <8 % TOXIC: >20 % Methemoglobin, Arterial 1.6(H) 0.0 - 1.5 % 10/17/2025 11:00 PM EST [facility] Blood, Arterial 10/17/2025 1 0:50 PM EST 10/17/2025 10:55 PM EST Aspen Parr MD LAB BLOOD ORDERABLES Final Resul t Performing Organization Address City/[facility] Co de Phone Number [facility] [address] [facility]. [address] * Magnesium (10/17/2025 10:50 PM EST) Magnesium 1.8 1.5 - 2.5 mg/dL 10/18/2025 12:13 AM EST [facility] Plasma 10/17/2025 10:5 0 PM EST 10/17/2025 10:55 PM EST Aspen Parr MD LAB BLOOD ORDERABLES Final Resul t Performing Organization Address City/[facility] Co de Phone Number [facility] [address] [facility]. [address] * (ABNORMAL) Hepatic Function Panel (10/17/2025 10:50 PM EST) Total Bilirubin 4.5(H) 0.0 - 1.5 mg/dL 10/18/2025 12:13 AM EST [facility] Bilirubin, Direct 3.22(H) 0.00 - 0.40 mg/dL 10/18/2025 12:13 AM EST [facility] AST 3,332(H) 13 - 39 U/L 10/18/2025 12:13 AM EST [facility] ALT 1141(H) 7 - 52 U/L 10/18/2025 12:13 AM EST [facility] Alkaline Phosphatase 63 36 - 125 U/L 10/18/2025 12:13 AM EST [facility] Total Protein 4.0(L) 6.4 - 8.9 g/dL 10/18/2025 12:13 AM EST [facility] Albumin 2.2(L) 3.5 - 5.7 g/dL 10/18/2025 12:13 AM [facility] Bilirubin, Indirect 1.28(H) 0.00 - 1.10 mg/dL 10/18/2025 12:13 AM [facility] Plasma 10/17/2025 10:5 0 PM EST 10/17/2025 10:55 PM EST us Aspen Parr MD LAB BLOOD ORDERABLES Final Resul t Performing Organization Address City/State/[facility] Co de Phone Number [facility] [address] * (ABNORMAL) Renal Function Panel w/EGFR (10/17/2025 10:50 PM EST) Sodium 145 133 - 146 mmol/L 10/18/2025 12:13 AM [facility] Potassium 3.7 3.5 - 5.3 mmol/L 10/18/2025 12:13 AM [facility] Chloride 110 98 - 110 mmol/L 10/18/2025 12:13 AM [facility] CO2 27 21 - 33 mmol/L 10/18/2025 12:13 AM [facility] Comment:High lactate dehydro genase concentrations in patient samples may cause falsely increased bicarbonate results. If markedly elevated LDH is observed or suspected, please assess results in conjunction with patient`s clinical presentation. In cases of discrepant results, consider evaluating CO2 in with a blood gas order. Anion Gap 8 3 - 16 mmol/L 10/18/2025 12:13 AM [facility] BUN 17 7 - 25 mg/dL 10/18/2025 12:13 AM [facility] Creatinine 0.79 0.60 - 1.30 mg/dL 10/18/2025 12:13 AM EST [facility] Glucose 225(H) 70 - 100 mg/dL 10/18/2025 12:13 AM EST [facility] Calcium 8.2(L) 8.6 - 10.3 mg/dL 10/18/2025 12:13 AM EST [facility] Phosphorus 3.9 2.1 - 4.7 mg/dL 10/18/2025 12:13 AM EST [facility] Albumin 2.2(L) 3.5 - 5.7 g/dL 10/18/2025 12:13 AM EST [facility] Osmolality, Calculated 309(H) 278 - 305 mOsm/kg 10/18/2025 12:13 AM EST [facility] EGFR >90 10/18/2025 12:13 AM EST [facility] Comment: As of 2022, the [...] LAB BLOOD ORDERABLES Final Resul t [facility] [address] [place] [address], [facility] * (ABNORMAL) CBC (10/17/2025 10:50 PM EST) WBC 5.8 3.8 - 10.8 10E3/uL 10/17/2025 11:03 PM EST [facility] RBC 2.93(L) 4.20 - 5.80 10E6/uL 10/17/2025 11:03 PM EST [facility] Hemoglobin 9.5(L) 13.2 - 17.1 g/dL 10/17/2025 11:03 PM EST [facility] Hematocrit 27.5(L) 38.5 - 50.0 % 10/17/2025 11:03 PM EST [facility] MCV 93.9 80.0 - 100.0 fL 10/17/2025 11:03 PM EST [facility] MCH 32.6 27.0 - 33.0 pg 10/17/2025 11:03 PM EST [facility] MCHC 34.7 32.0 - 36.0 g/dL 10/17/2025 11:03 PM EST [facility] RDW 18.1(H) 11.0 - 15.0 % 10/17/2025 11:03 PM EST [facility] Platelets 52(L) 140 - 400 10E3/uL 10/17/2025 11:03 PM EST [facility] MPV 7.1(L) 7.5 - 11.5 fL 10/17/2025 11:03 PM EST [facility] Whole Blood 10/17/2025 10:5 0 PM EST 10/17/2025 10:55 PM EST us Aspen Parr MD LAB BLOOD ORDERABLES Final Resul t [facility] [address] [place] [address], [facility] * (ABNORMAL) POC Glucose Monitoring Device (10/17/2025 10:47 PM EST) POC Glucose Monitoring Device 234(H) 70 - 100 mg/dL 10/17/2025 10:48 PM EST [facility] Blood 10/17/2025 10:4 7 PM EST 10/17/2025 10:47 PM EST us Vani Winkler MD POINT OF CARE TEST ORDERABLE S Final Result Performing Organization Address City/[facility] Co de Phone Number [facility] [address] [facility]. [address] * POC Sample Type (10/17/2025 9:25 PM EST) POC Sample Type Arterial 10/17/2025 9:51 PM EST [facility] Blood, Arterial 10/17/2025 9 :25 PM EST 10/17/2025 9:51 PM EST us Vani Winkler MD POINT OF CARE TEST ORDERABLE S Final Result Performing Organization Address [facility] Co de Phone Number [facility] [address] [facility]. [address] * POC Anion Gap (10/17/2025 9:25 PM EST) POC Anion Gap, Arterial 9 3 - 16 mmol/L 10/17/2025 9:51 PM EST [facility] Blood, Arterial 10/17/2025 9 :25 PM EST 10/17/2025 9:51 PM EST us Vani Winkler MD POINT OF CARE TEST ORDERABLE S Final Result Performing Organization Address [facility] Co de Phone Number [facility] [address] [facility]. [address] * (ABNORMAL) POC Chloride (10/17/2025 9:25 PM EST) POC Chloride 111(H) 98 - 110 mmol/L 10/17/2025 9:51 PM EST [facility] Blood, Arterial 10/17/2025 9 :25 PM EST 10/17/2025 9:51 PM EST us Vani Winkler MD POINT OF CARE TEST ORDERABLE S Final Result Performing Organization Address City/State/[facility] Co de Phone Number [facility] [address] * (ABNORMAL) POC Hemoglobin (10/17/2025 9:25 PM EST) POC Hemoglobin 9.0(L) 14.0 - 18.0 g/dL 10/17/2025 9:51 PM EST [facility] Blood, Arterial 10/17/2025 9 :25 PM EST 10/17/2025 9:51 PM EST Vani Winkler MD POINT OF CARE TEST ORDERABLE S Final Result [facility] [address] * (ABNORMAL) POC hematocrit (10/17/2025 9:25 PM EST) Pathologist [facility] POC Hematocrit 26.0(L) 40 - 52 % 10/17/2025 9:51 PM EST [facility] Blood, Arterial 10/17/2025 9 :25 PM EST 10/17/2025 9:51 PM EST Vani Winkler MD POINT OF CARE TEST ORDERABLE S Final Result [facility] [address] [facility]. [address] * POC Lactate (10/17/2025 9:25 PM EST) Pathologist [facility] POC Lactate 1.50 0.50 - 2.20 mmol/L 10/17/2025 9:51 PM EST [facility] Blood, Arterial 10/17/2025 9 :25 PM EST 10/17/2025 9:51 PM EST Vani Winkler MD POINT OF CARE TEST ORDERABLE S Final Result [facility] [address] * (ABNORMAL) POC Glucose (10/17/2025 9:25 PM EST) Pathologist [facility] POC Glucose, Arterial 227(H) 70 - 100 mg/dL 10/17/2025 9:51 PM EST [facility] Blood, Arterial 10/17/2025 9 :25 PM EST 10/17/2025 9:51 PM EST Vani Winkler MD POINT OF CARE TEST ORDERABLE S Final Result [facility] [address] [facility]. [address] * POC Ionized Calcium (10/17/2025 9:25 PM EST) [facility] POC Ionized Calcium 4.90 4.50 - 5.30 mg/dL 10/17/2025 9:51 PM EST [facility] Blood, Arterial 10/17/2025 9 :25 PM EST 10/17/2025 9:51 PM EST Vani Winkler MD POINT OF CARE TEST ORDERABLE S Final Result Performing Organization Address City/[facility]/ZIP Co de Phone Number [facility] [address] [place] [address]. [address] * POC Potassium (10/17/2025 9:25 PM EST) [facility] POC Potassium 3.7 3.5 - 5.3 mmol/L 10/17/2025 9:51 PM EST [facility] Blood, Arterial 10/17/2025 9 :25 PM EST 10/17/2025 9:51 PM EST Vani Winkler MD POINT OF CARE TEST ORDERABLE S Final Result [facility] [address] [facility]. [address] * POC Sodium (10/17/2025 9:25 PM EST) [facility] POC Sodium 142 136 - 146 mmol/L 10/17/2025 9:51 PM EST [facility] Blood, Arterial 10/17/2025 9 :25 PM EST 10/17/2025 9:51 PM EST Vani Winkler MD POINT OF CARE TEST ORDERABLE S Final Result [facility] [address] [place] [address]. [address] * POC TCO2 (10/17/2025 9:25 PM EST) POC TCO2, Arterial 23 23 - 27 mmol/L 10/17/2025 9:51 PM EST [facility] Blood, Arterial 10/17/2025 9 :25 PM EST 10/17/2025 9:51 PM EST Vani Winkler MD POINT OF CARE TEST ORDERABLE S Final Result [facility] [address] [facility]. [address] * (ABNORMAL) POC O2 SAT (10/17/2025 9:25 PM EST) Pathologist [facility] POC O2 Saturation, Arterial 99(H) 95 - 98 % 10/17/2025 9:51 PM EST [facility] Blood, Arterial 10/17/2025 9 :25 PM EST 10/17/2025 9:51 PM EST Vani Winkler MD POINT OF CARE TEST ORDERABLE S Final Result [facility] [address] [facility]. [address] * (ABNORMAL) POC Base Excess (10/17/2025 9:25 PM EST) POC Base Excess, Arterial -3(L) -2 - 3 mmol/L 10/17/2025 9:51 PM EST [facility] Blood, Arterial 10/17/2025 9 :25 PM EST 10/17/2025 9:51 PM EST Vani Winkler MD POINT OF CARE TEST ORDERABLE S Final Result [facility] [address] [facility]. [address] * POC HCO3 (10/17/2025 9:25 PM EST) POC HCO3, Arterial 22 22 - 26 mmol/L 10/17/2025 9:51 PM EST [facility] Blood, Arterial 10/17/2025 9 :25 PM EST 10/17/2025 9:51 PM EST Vani Winkler MD POINT OF CARE TEST ORDERABLE S Final Result Performing Organization Address City/[facility]/ZIP Co de Phone Number [facility] [address] [facility]. [address] * (ABNORMAL) POC PO2 (10/17/2025 9:25 PM EST) POC pO2, Arterial 161(H) 80 - 100 mm Hg 10/17/2025 9:51 PM EST [facility] Blood, Arterial 10/17/2025 9 :25 PM EST 10/17/2025 9:51 PM EST Vani Winkler MD POINT OF CARE TEST ORDERABLE S Final Result [facility] [address] [facility]. [address] * POC PCO2 (10/17/2025 9:25 PM EST) POC pCO2, Arterial 38 35 - 45 mm Hg 10/17/2025 9:51 PM EST [facility] Blood, Arterial 10/17/2025 9 :25 PM EST 10/17/2025 9:51 PM EST Vani Winkler MD POINT OF CARE TEST ORDERABLE S Final Result [facility] [address] * POC pH (10/17/2025 9:25 PM EST) POC pH, Arterial 7.37 7.35 - 7.45 10/17/2025 9:51 PM EST [facility] Blood, Arterial 10/17/2025 9 :25 PM EST 10/17/2025 9:51 PM EST Vani Winkler MD POINT OF CARE TEST ORDERABLE S Final Result Performing Organization Address [facility] Co de Phone Number [facility] [address] [facility]. [address] * (ABNORMAL) POC INR (10/17/2025 9:24 PM EST) Prothrombin Time INR, POC 2.3(H) 0.8 - 1.4 10/18/2025 12:08 AM EST [facility] Comment: Test results may vary [...] CARE TEST ORDERABLE S Final Result [facility] [address] [facility]. [address] * Transfuse Fresh Frozen Plasma (10/17/2025 9:17 PM EST) Result [facility] Shannan Salas MD NURSING TREATMENT ORDERABLES - BLOOD ADMIN Final Result * Transfuse Platelets (10/17/2025 9:01 PM EST) Slade Munoz MD NURSING TREATMENT ORDERABLES - B LOOD ADMIN Final Result * Transfuse Cryoprecipitate (10/17/2025 8:49 PM EST) Result [facility] Slade Munoz MD NURSING TREATMENT ORDERABLES - B LOOD ADMIN Final Result * Transfuse Cryoprecipitate (10/17/2025 8:46 PM EST) Result [facility] Slade Munoz MD NURSING TREATMENT ORDERABLES - B LOOD ADMIN Final Result * (ABNORMAL) TEG-Bypass/ECMO/Liver HN (Factor function, Platelet/Fibrin Clot Strength w/Clot Breakdown, Heparinase In All Channels) (10/17/2025 8:31 PM EST) [facility] Citrated Kaolin Reaction Time (TEGECMOLIVER) 9.7(H) 4.6 - 9.1 minutes 10/17/2025 10:13 PM EST [facility] Citrated Kaolin W/Heparinase Reaction Time (TEGECMOLIVER) 3.4(L) 4.3 - 8.3 minutes 10/17/2025 10:13 PM EST [facility] Citrated Kaolin Maximum Amplitude (TEGECMOLIVER) 45.4(L) 52.0 - 69.0 mm 10/17/2025 10:13 PM EST [facility] Citrated Functional Fibrinogen W/Heparinase Maximum Amplitude(TEGEC MOLIVER) 18.0 15.0 - 34.0 mm 10/17/2025 10:13 PM EST [facility] Citrated Rapid Teg W/Heparinase Maximum Amplitude (TEGECMOLIVER) 40.5(L) 53.0 - 69.0 mm 10/17/2025 10:13 PM EST [facility] Citrated Kaolin w/Heparinase Percent Lysis (TEGECMOLIVER) 0.0 0.0 - 3.2 % 10/17/2025 10:13 PM EST [facility] Whole Blood (Citrate) 10/17/2025 8:31 PM EST 10/17/2025 8:40 PM EST Result [facility] Oskar Torres MD LAB BLOOD ORDERABLES Final Re sult [facility] [address] * (ABNORMAL) Fibrinogen (10/17/2025 8:31 PM EST) Fibrinogen 157(L) 218 - 406 mg/dL 10/17/2025 9:00 PM EST [facility] Plasma 10/17/2025 8:31 PM EST 10/17/2025 8:40 PM EST us Oskar Torres MD LAB BLOOD ORDERABLES Final Re sult [facility] [address] [facility]. [address] * POC Sample Type (10/17/2025 8:22 PM EST) Pathologist [facility] POC Sample Type Arterial 10/17/2025 8:24 PM EST [facility] Blood, Arterial 10/17/2025 8 :22 PM EST 10/17/2025 8:24 PM EST Vani Winkler MD POINT OF CARE TEST ORDERABLE S Final Result Performing Organization Address [facility]/ZIP Co de Phone Number [facility] [address] [facility]. [address] * POC Anion Gap (10/17/2025 8:22 PM EST) Pathologist [facility] POC Anion Gap, Arterial 11 3 - 16 mmol/L 10/17/2025 8:24 PM EST [facility] Blood, Arterial 10/17/2025 8 :22 PM EST 10/17/2025 8:24 PM EST Vani Winkler MD POINT OF CARE TEST ORDERABLE S Final Result [facility] [address] [facility]. [address] * POC Chloride (10/17/2025 8:22 PM EST) POC Chloride 108 98 - 110 mmol/L 10/17/2025 8:24 PM EST [facility] Blood, Arterial 10/17/2025 8 :22 PM EST 10/17/2025 8:24 PM EST Vani Winkler MD POINT OF CARE TEST ORDERABLE S Final Result [facility] [address] [facility]. [address] * (ABNORMAL) POC Hemoglobin (10/17/2025 8:22 PM EST) POC Hemoglobin 9.5(L) 14.0 - 18.0 g/dL 10/17/2025 8:24 PM EST [facility] Blood, Arterial 10/17/2025 8 :22 PM EST 10/17/2025 8:24 PM EST Vani Winkler MD POINT OF CARE TEST ORDERABLE S Final Result Performing Organization Address [facility]/ZIP Co de Phone Number [facility] [address] [facility]. [address] * (ABNORMAL) POC hematocrit (10/17/2025 8:22 PM EST) Pathologist [facility] POC Hematocrit 28.0(L) 40 - 52 % 10/17/2025 8:24 PM EST [facility] Blood, Arterial 10/17/2025 8 :22 PM EST 10/17/2025 8:24 PM EST Vani Winkler MD POINT OF CARE TEST ORDERABLE S Final Result [facility] [address] [facility]. [address] * POC Lactate (10/17/2025 8:22 PM EST) POC Lactate 1.62 0.50 - 2.20 mmol/L 10/17/2025 8:24 PM EST [facility] Blood, Arterial 10/17/2025 8 :22 PM EST 10/17/2025 8:24 PM EST Vani Winkler MD POINT OF CARE TEST ORDERABLE S Final Result [facility] [address] [facility]. [address] * (ABNORMAL) POC Glucose (10/17/2025 8:22 PM EST) POC Glucose, Arterial 218(H) 70 - 100 mg/dL 10/17/2025 8:24 PM EST [facility] Blood, Arterial 10/17/2025 8 :22 PM EST 10/17/2025 8:24 PM EST Vani Winkler MD POINT OF CARE TEST ORDERABLE S Final Result Performing Organization Address City/[facility]/ZIP Co de Phone Number [facility] [address] [facility]. [address] * POC Ionized Calcium (10/17/2025 8:22 PM EST) POC Ionized Calcium 4.80 4.50 - 5.30 mg/dL 10/17/2025 8:24 PM EST [facility] Blood, Arterial 10/17/2025 8 :22 PM EST 10/17/2025 8:24 PM EST Vani Winkler MD POINT OF CARE TEST ORDERABLE S Final Result [facility] [address] [facility]. [address] * POC Potassium (10/17/2025 8:22 PM EST) POC Potassium 3.8 3.5 - 5.3 mmol/L 10/17/2025 8:24 PM EST [facility] Blood, Arterial 10/17/2025 8 :22 PM EST 10/17/2025 8:24 PM EST Vani Winkler MD POINT OF CARE TEST ORDERABLE S Final Result [facility] [address] [place] [address]. [address] * POC Sodium (10/17/2025 8:22 PM EST) POC Sodium 143 136 - 146 mmol/L 10/17/2025 8:24 PM EST [facility] Blood, Arterial 10/17/2025 8 :22 PM EST 10/17/2025 8:24 PM EST Vani Winkler MD POINT OF CARE TEST ORDERABLE S Final Result Performing Organization Address [facility] Co de Phone Number [facility] [address] [facility]. [address] * POC TCO2 (10/17/2025 8:22 PM EST) POC TCO2, Arterial 25 23 - 27 mmol/L 10/17/2025 8:24 PM EST [facility] Blood, Arterial 10/17/2025 8 :22 PM EST 10/17/2025 8:24 PM EST Vani Winkler MD POINT OF CARE TEST ORDERABLE S Final Result Performing Organization Address City/[facility] Co de Phone Number [facility] [address] [place] [address]. [address] * (ABNORMAL) POC O2 SAT (10/17/2025 8:22 PM EST) POC O2 Saturation, Arterial 99(H) 95 - 98 % 10/17/2025 8:24 PM EST [facility] Blood, Arterial 10/17/2025 8 :22 PM EST 10/17/2025 8:24 PM EST Vani Winkler MD POINT OF CARE TEST ORDERABLE S Final Result [facility] [address] * POC Base Excess (10/17/2025 8:22 PM EST) POC Base Excess, Arterial -1 -2 - 3 mmol/L 10/17/2025 8:24 PM EST [facility] Blood, Arterial 10/17/2025 8 :22 PM EST 10/17/2025 8:24 PM EST Vani Winkler MD POINT OF CARE TEST ORDERABLE S Final Result Performing Organization Address City/[facility]/ZIP Co de Phone Number [facility] [address] * POC HCO3 (10/17/2025 8:22 PM EST) POC HCO3, Arterial 24 22 - 26 mmol/L 10/17/2025 8:24 PM EST [facility] Blood, Arterial 10/17/2025 8 :22 PM EST 10/17/2025 8:24 PM EST Vani Winkler MD POINT OF CARE TEST ORDERABLE S Final Result Performing Organization Address City/[facility]/ZIP Co de Phone Number [facility] [address] * (ABNORMAL) POC PO2 (10/17/2025 8:22 PM EST) POC pO2, Arterial 131(H) 80 - 100 mm Hg 10/17/2025 8:24 PM EST [facility] Blood, Arterial 10/17/2025 8 :22 PM EST 10/17/2025 8:24 PM EST Vani Winkler MD POINT OF CARE TEST ORDERABLE S Final Result [facility] [address] * POC PCO2 (10/17/2025 8:22 PM EST) POC pCO2, Arterial 41 35 - 45 mm Hg 10/17/2025 8:24 PM EST [facility] Blood, Arterial 10/17/2025 8 :22 PM EST 10/17/2025 8:24 PM EST Vani Winkler MD POINT OF CARE TEST ORDERABLE S Final Result Performing Organization Address City/[facility] Co de Phone Number [facility] [address] [facility]. [address] * POC pH (10/17/2025 8:22 PM EST) POC pH, Arterial 7.37 7.35 - 7.45 10/17/2025 8:24 PM EST [facility] Blood, Arterial 10/17/2025 8 :22 PM EST 10/17/2025 8:24 PM EST Vani Winkler MD POINT OF CARE TEST ORDERABLE S Final Result Performing Organization Address [facility] Co de Phone Number [facility] [address] [facility]. [address] * (ABNORMAL) POC INR (10/17/2025 8:21 PM EST) Prothrombin Time INR, POC 2.9(H) 0.8 - 1.4 10/18/2025 12:08 AM EST [facility] Comment: Test results may vary [...] CARE TEST ORDERABLE S Final Result [facility] [address] * Transfuse Fresh Frozen Plasma (10/17/2025 [...] Sample Type Arterial 10/17/2025 7:30 PM EST [facility] Blood, Arterial 10/17/2025 7 :26 PM EST 10/17/2025 7:30 PM EST Result Neto Winkler MD POINT OF CARE TEST ORDERABLE S Final Result Performing Organization Address City/[facility]/ZIP Co de Phone Number [facility] [address] [facility]. [address] * POC Anion Gap (10/17/2025 7:26 PM EST) POC Anion Gap, Arterial 11 3 - 16 mmol/L 10/17/2025 7:30 PM EST [facility] Blood, Arterial 10/17/2025 7 :26 PM EST 10/17/2025 7:30 PM EST Result Neto Winkler MD POINT OF CARE TEST ORDERABLE S Final Result [facility] [address] * POC Chloride (10/17/2025 7:26 PM EST) POC Chloride 109 98 - 110 mmol/L 10/17/2025 7:30 PM EST [facility] Blood, Arterial 10/17/2025 7 :26 PM EST 10/17/2025 7:30 PM EST Vani Winkler MD POINT OF CARE TEST ORDERABLE S Final Result [facility] [address] [facility]. [address] * (ABNORMAL) POC Hemoglobin (10/17/2025 7:26 PM EST) [facility] POC Hemoglobin 8.6(L) 14.0 - 18.0 g/dL 10/17/2025 7:30 PM EST [facility] Blood, Arterial 10/17/2025 7 :26 PM EST 10/17/2025 7:30 PM EST Vani Winkler MD POINT OF CARE TEST ORDERABLE S Final Result [facility] [address] [facility]. [address] * (ABNORMAL) POC hematocrit (10/17/2025 7:26 PM EST) [facility] POC Hematocrit 25.0(L) 40 - 52 % 10/17/2025 7:30 PM EST [facility] Blood, Arterial 10/17/2025 7 :26 PM EST 10/17/2025 7:30 PM EST Vani Winkler MD POINT OF CARE TEST ORDERABLE S Final Result [facility] [address] [facility]. [address] * POC Lactate (10/17/2025 7:26 PM EST) POC Lactate 2.16 0.50 - 2.20 mmol/L 10/17/2025 7:30 PM EST [facility] Blood, Arterial 10/17/2025 7 :26 PM EST 10/17/2025 7:30 PM EST Vani Winkler MD POINT OF CARE TEST ORDERABLE S Final Result [facility] [address] [facility]. [address] * (ABNORMAL) POC Glucose (10/17/2025 7:26 PM EST) POC Glucose, Arterial 207(H) 70 - 100 mg/dL 10/17/2025 7:30 PM EST [facility] Blood, Arterial 10/17/2025 7 :26 PM EST 10/17/2025 7:30 PM EST Vani Winkler MD POINT OF CARE TEST ORDERABLE S Final Result Performing Organization Address [facility] Co de Phone Number [facility] [address] [facility]. [address] * (ABNORMAL) POC Ionized Calcium (10/17/2025 7:26 PM EST) POC Ionized Calcium 5.40(H) 4.50 - 5.30 mg/dL 10/17/2025 7:30 PM EST [facility] Blood, Arterial 10/17/2025 7 :26 PM EST 10/17/2025 7:30 PM EST Vani Winkler MD POINT OF CARE TEST ORDERABLE S Final Result [facility] [address] [facility]. [address] * POC Potassium (10/17/2025 7:26 PM EST) POC Potassium 3.9 3.5 - 5.3 mmol/L 10/17/2025 7:30 PM EST [facility] Blood, Arterial 10/17/2025 7 :26 PM EST 10/17/2025 7:30 PM EST Vani Winkler MD POINT OF CARE TEST ORDERABLE S Final Result Performing Organization Address City/[facility]/ZIP Co de Phone Number [facility] [address] [facility]. [address] * POC Sodium (10/17/2025 7:26 PM EST) POC Sodium 143 136 - 146 mmol/L 10/17/2025 7:30 PM EST [facility] Blood, Arterial 10/17/2025 7 :26 PM EST 10/17/2025 7:30 PM EST Vani Winkler MD POINT OF CARE TEST ORDERABLE S Final Result Performing Organization Address City/[facility]/ZIP Co de Phone Number [facility] [address] * POC TCO2 (10/17/2025 7:26 PM EST) POC TCO2, Arterial 24 23 - 27 mmol/L 10/17/2025 7:30 PM EST [facility] Blood, Arterial 10/17/2025 7 :26 PM EST 10/17/2025 7:30 PM EST Vani Winkler MD POINT OF CARE TEST ORDERABLE S Final Result Performing Organization Address City/[facility]/ZIP Co de Phone Number [facility] [address] * (ABNORMAL) POC O2 SAT (10/17/2025 7:26 PM EST) POC O2 Saturation, Arterial 99(H) 95 - 98 % 10/17/2025 7:30 PM EST [facility] Blood, Arterial 10/17/2025 7 :26 PM EST 10/17/2025 7:30 PM EST Vani Winkler MD POINT OF CARE TEST ORDERABLE S Final Result Performing Organization Address City/[facility]/ZIP Co de Phone Number [facility] [address] [facility]. [address] * POC Base Excess (10/17/2025 7:26 PM EST) POC Base Excess, Arterial -2 -2 - 3 mmol/L 10/17/2025 7:30 PM EST [facility] Blood, Arterial 10/17/2025 7 :26 PM EST 10/17/2025 7:30 PM EST Vani Winkler MD POINT OF CARE TEST ORDERABLE S Final Result Performing Organization Address [facility] Co de Phone Number [facility] [address] [facility]. [address] * POC HCO3 (10/17/2025 7:26 PM EST) POC HCO3, Arterial 23 22 - 26 mmol/L 10/17/2025 7:30 PM EST [facility] Blood, Arterial 10/17/2025 7 :26 PM EST 10/17/2025 7:30 PM EST Result [facility] Vani Winkler MD POINT OF CARE TEST ORDERABLE S Final Result Performing Organization Address [facility] Co de Phone Number [facility] [address] [facility]. [address] * (ABNORMAL) POC PO2 (10/17/2025 7:26 PM EST) POC pO2, Arterial 156(H) 80 - 100 mm Hg 10/17/2025 7:30 PM EST [facility] Blood, Arterial 10/17/2025 7 :26 PM EST 10/17/2025 7:30 PM EST Vani Winkler MD POINT OF CARE TEST ORDERABLE S Final Result [facility] [address] * POC PCO2 (10/17/2025 7:26 PM EST) POC pCO2, Arterial 40 35 - 45 mm Hg 10/17/2025 7:30 PM EST [facility] Blood, Arterial 10/17/2025 7 :26 PM EST 10/17/2025 7:30 PM EST Vani Winkler MD POINT OF CARE TEST ORDERABLE S Final Result Performing Organization Address City/[facility]/ZIP Co de Phone Number [facility] [address] * POC pH (10/17/2025 7:26 PM EST) POC pH, Arterial 7.37 7.35 - 7.45 10/17/2025 7:30 PM EST [facility] Blood, Arterial 10/17/2025 7 :26 PM EST 10/17/2025 7:30 PM EST Vani Winkler MD POINT OF CARE TEST ORDERABLE S Final Result [facility] [address] [facility]. [address] * (ABNORMAL) POC INR (10/17/2025 7:25 PM EST) Prothrombin Time INR, POC 5.9(HH) 0.8 - 1.4 10/18/2025 12:07 AM EST [facility] Comment: Test results may vary [...] CARE TEST ORDERABLE S Final Result [facility] [address] * Transfuse Platelets (10/17/2025 7:03 PM EST) Slade Munoz MD NURSING TREATMENT ORDERABLES - B LOOD ADMIN Final Result * (ABNORMAL) TEG-Bypass/ECMO/Liver HN (Factor function, Platelet/Fibrin Clot Strength w/Clot Breakdown, Heparinase In All Channels) (10/17/2025 6:39 PM EST) Pathologist [facility] Citrated Kaolin Reaction Time (TEGECMOLIVER) 7.1 4.6 - 9.1 minutes 10/17/2025 8:07 PM EST [facility] Citrated Kaolin W/Heparinase Reaction Time (TEGECMOLIVER) 2.5(L) 4.3 - 8.3 minutes 10/17/2025 8:07 PM EST [facility] Citrated Kaolin Maximum Amplitude (TEGECMOLIVER) 41.6(L) 52.0 - 69.0 mm 10/17/2025 8:07 PM EST [facility] Citrated Functional Fibrinogen W/Heparinase Maximum Amplitude(TEGEC MOLIVER) 20.9 15.0 - 34.0 mm 10/17/2025 8:07 PM EST [facility] Citrated Rapid Teg W/Heparinase Maximum Amplitude (TEGECMOLIVER) 30.9(L) 53.0 - 69.0 mm 10/17/2025 8:07 PM EST [facility] Citrated Kaolin w/Heparinase Percent Lysis (TEGECMOLIVER) 0.0 0.0 - 3.2 % 10/17/2025 8:07 PM EST [facility] Whole Blood (Citrate) 10/17/2025 6:39 PM EST 10/17/2025 6:45 PM EST Shannan Salas MD LAB BLOOD ORDERABLES Final R esult [facility] [address] * (ABNORMAL) CBC (10/17/2025 6:39 PM EST) WBC 4.8 3.8 - 10.8 10E3/uL 10/17/2025 6:54 PM EST [facility] RBC 3.19(L) 4.20 - 5.80 10E6/uL 10/17/2025 6:54 PM EST [facility] Hemoglobin 10.3(L) 13.2 - 17.1 g/dL 10/17/2025 6:54 PM EST [facility] Hematocrit 30.2(L) 38.5 - 50.0 % 10/17/2025 6:54 PM EST [facility] MCV 94.8 80.0 - 100.0 fL 10/17/2025 6:54 PM EST [facility] MCH 32.3 27.0 - 33.0 pg 10/17/2025 6:54 PM EST [facility] MCHC 34.1 32.0 - 36.0 g/dL 10/17/2025 6:54 PM EST [facility] RDW 17.8(H) 11.0 - 15.0 % 10/17/2025 6:54 PM EST [facility] Platelets 47(L) 140 - 400 10E3/uL 10/17/2025 6:54 PM EST [facility] Comment:CNV MPV 7.7 7.5 - 11.5 fL 10/17/2025 6:54 PM EST [facility] Whole Blood 10/17/2025 6:39 PM EST 10/17/2025 6:45 PM EST us Shannan Salas MD LAB BLOOD ORDERABLES Final R esult [facility] [address] * (ABNORMAL) Protime-INR (10/17/2025 6:39 PM EST) Protime 69.5(HH) 12.1 - 15.1 seconds 10/17/2025 7:30 PM EST [facility] Comment:The critical result was called to, and read back by, licensed caregiver ROSALIND HAWK RN, AT 1930 INR 7.5(HH) 0.9 - 1.1 10/17/2025 7:30 PM EST [facility] Comment: RECOMMENDED THERAPEUTIC RANGES USING INR : Stable oral anticoagulant therapy: 2.0 - 3.0 Mechanical prosthetic heart valve: 2.5 - 3.5 Recurrent acute myocardial infarction: 2.5 - 3.5 The critical result was called to, and read back by, licensed caregiver ROSALIND HAWK RN, AT 1930 Plasma 10/17/2025 6:39 PM EST 10/17/2025 6:45 PM EST Result [facility] Shannan Salas MD LAB BLOOD ORDERABLES Final R esult [facility] [address] * (ABNORMAL) Fibrinogen (10/17/2025 6:39 PM EST) [facility] Fibrinogen 159(L) 218 - 406 mg/dL 10/17/2025 7:04 PM EST [facility] Plasma 10/17/2025 6:39 PM EST 10/17/2025 6:45 PM EST Result [facility] Shannan Salas MD LAB BLOOD ORDERABLES Final R esult [facility] [address] * Transfuse Cryoprecipitate (10/17/2025 6:31 PM EST) Slade Munoz MD NURSING TREATMENT ORDERABLES - B LOOD ADMIN Final Result * POC Sample Type (10/17/2025 6:23 PM EST) Pathologist [facility] POC Sample Type Arterial 10/17/2025 6:25 PM EST [facility] Blood, Arterial 10/17/2025 6 :23 PM EST 10/17/2025 6:25 PM EST Vani Winkler MD POINT OF CARE TEST ORDERABLE S Final Result [facility] [address] * POC Anion Gap (10/17/2025 6:23 PM EST) POC Anion Gap, Arterial 13 3 - 16 mmol/L 10/17/2025 6:25 PM EST [facility] Blood, Arterial 10/17/2025 6 :23 PM EST 10/17/2025 6:25 PM EST Vani Winkler MD POINT OF CARE TEST ORDERABLE S Final Result Performing Organization Address [facility] Co de Phone Number [facility] [address] [facility]. [address] * POC Chloride (10/17/2025 6:23 PM EST) POC Chloride 110 98 - 110 mmol/L 10/17/2025 6:25 PM EST [facility] Blood, Arterial 10/17/2025 6 :23 PM EST 10/17/2025 6:25 PM EST Vani Winkler MD POINT OF CARE TEST ORDERABLE S Final Result Performing Organization Address City/[facility]/ZIP Co de Phone Number [facility] [address] [place] [address]. [address] * (ABNORMAL) POC Hemoglobin (10/17/2025 6:23 PM EST) POC Hemoglobin 9.8(L) 14.0 - 18.0 g/dL 10/17/2025 6:25 PM EST [facility] Blood, Arterial 10/17/2025 6 :23 PM EST 10/17/2025 6:25 PM EST Vani Winkler MD POINT OF CARE TEST ORDERABLE S Final Result [facility] [address] * (ABNORMAL) POC hematocrit (10/17/2025 6:23 PM EST) POC Hematocrit 29.0(L) 40 - 52 % 10/17/2025 6:25 PM EST [facility] Blood, Arterial 10/17/2025 6 :23 PM EST 10/17/2025 6:25 PM EST Vani Winkler MD POINT OF CARE TEST ORDERABLE S Final Result [facility] [address] [facility]. [address] * (ABNORMAL) POC Lactate (10/17/2025 6:23 PM EST) POC Lactate 3.26(H) 0.50 - 2.20 mmol/L 10/17/2025 6:25 PM EST [facility] Blood, Arterial 10/17/2025 6 :23 PM EST 10/17/2025 6:25 PM EST Vani Winkler MD POINT OF CARE TEST ORDERABLE S Final Result Performing Organization Address City/[facility]/ZIP Co de Phone Number [facility] [address] [facility]. [address] * (ABNORMAL) POC Glucose (10/17/2025 6:23 PM EST) POC Glucose, Arterial 170(H) 70 - 100 mg/dL 10/17/2025 6:25 PM EST [facility] Blood, Arterial 10/17/2025 6 :23 PM EST 10/17/2025 6:25 PM EST Vani Winkler MD POINT OF CARE TEST ORDERABLE S Final Result [facility] [address] [facility]. [address] * (ABNORMAL) POC Ionized Calcium (10/17/2025 6:23 PM EST) Pathologist [facility] POC Ionized Calcium 6.00(H) 4.50 - 5.30 mg/dL 10/17/2025 6:25 PM EST [facility] Blood, Arterial 10/17/2025 6 :23 PM EST 10/17/2025 6:25 PM EST Vani Winkler MD POINT OF CARE TEST ORDERABLE S Final Result [facility] [address] [place] [address]. [address] * POC Potassium (10/17/2025 6:23 PM EST) Pathologist [facility] POC Potassium 3.8 3.5 - 5.3 mmol/L 10/17/2025 6:25 PM EST [facility] Blood, Arterial 10/17/2025 6 :23 PM EST 10/17/2025 6:25 PM EST Vani Winkler MD POINT OF CARE TEST ORDERABLE S Final Result Performing Organization Address City/[facility]/ZIP Co de Phone Number [facility] [address] [place] [address]. [address] * POC Sodium (10/17/2025 6:23 PM EST) Pathologist [facility] POC Sodium 142 136 - 146 mmol/L 10/17/2025 6:25 PM EST [facility] Blood, Arterial 10/17/2025 6 :23 PM EST 10/17/2025 6:25 PM EST Vani Winkler MD POINT OF CARE TEST ORDERABLE S Final Result [facility] [address] [place] [address]. [address] * (ABNORMAL) POC TCO2 (10/17/2025 6:23 PM EST) POC TCO2, Arterial 20(L) 23 - 27 mmol/L 10/17/2025 6:25 PM EST [facility] Blood, Arterial 10/17/2025 6 :23 PM EST 10/17/2025 6:25 PM EST Vani Winkler MD POINT OF CARE TEST ORDERABLE S Final Result [facility] [address] [facility]. [address] * POC O2 SAT (10/17/2025 6:23 PM EST) POC O2 Saturation, Arterial 95 95 - 98 % 10/17/2025 6:25 PM EST [facility] Blood, Arterial 10/17/2025 6 :23 PM EST 10/17/2025 6:25 PM EST Vani Winkler MD POINT OF CARE TEST ORDERABLE S Final Result Performing Organization Address City/[facility]/ZIP Co de Phone Number [facility] [address] [facility]. [address] * (ABNORMAL) POC Base Excess (10/17/2025 6:23 PM EST) POC Base Excess, Arterial -6(L) -2 - 3 mmol/L 10/17/2025 6:25 PM EST [facility] Blood, Arterial 10/17/2025 6 :23 PM EST 10/17/2025 6:25 PM EST Vani Winkler MD POINT OF CARE TEST ORDERABLE S Final Result [facility] [address] [facility]. [address] * (ABNORMAL) POC HCO3 (10/17/2025 6:23 PM EST) POC HCO3, Arterial 19(L) 22 - 26 mmol/L 10/17/2025 6:25 PM EST [facility] Blood, Arterial 10/17/2025 6 :23 PM EST 10/17/2025 6:25 PM EST Vani Winkler MD POINT OF CARE TEST ORDERABLE S Final Result Performing Organization Address City/[facility]/ZIP Co de Phone Number [facility] [address] [facility]. [address] * POC PO2 (10/17/2025 6:23 PM EST) POC pO2, Arterial 80 80 - 100 mm Hg 10/17/2025 6:25 PM EST [facility] Blood, Arterial 10/17/2025 6 :23 PM EST 10/17/2025 6:25 PM EST Vani Winkler MD POINT OF CARE TEST ORDERABLE S Final Result Performing Organization Address City/[facility] Co de Phone Number [facility] [address] * POC PCO2 (10/17/2025 6:23 PM EST) POC pCO2, Arterial 36 35 - 45 mm Hg 10/17/2025 6:25 PM EST [facility] Blood, Arterial 10/17/2025 6 :23 PM EST 10/17/2025 6:25 PM EST Vani Winkler MD POINT OF CARE TEST ORDERABLE S Final Result Performing Organization Address City/[facility] Co de Phone Number [facility] [address] [facility] * (ABNORMAL) POC pH (10/17/2025 6:23 PM EST) POC pH, Arterial 7.33(L) 7.35 - 7.45 10/17/2025 6:25 PM EST [facility] Blood, Arterial 10/17/2025 6 :23 PM EST 10/17/2025 6:25 PM EST Vani Winkler MD POINT OF CARE TEST ORDERABLE S Final Result [facility] [address] * (ABNORMAL) POC INR (10/17/2025 6:21 PM EST) Prothrombin Time INR, POC 6.4(HH) 0.8 - 1.4 10/18/2025 12:07 AM EST [facility] Comment: Test results may vary [...] ORDERABLE S Final Result Performing Organization Address City/[facility]/ZIP Co de Phone Number [facility] [address] * Transfuse Cryoprecipitate (10/17/2025 6:18 PM EST) Result [facility] Slade Munoz MD NURSING TREATMENT ORDERABLES - B LOOD ADMIN Final Result * POC Sample Type (10/17/2025 5:42 PM EST) POC Sample Type Arterial 10/17/2025 6:21 PM EST [facility] Blood, Arterial 10/17/2025 5 :42 PM EST 10/17/2025 6:21 PM EST Vani Winkler MD POINT OF CARE TEST ORDERABLE S Final Result [facility] [address] * POC Anion Gap (10/17/2025 5:42 PM EST) POC Anion Gap, Arterial 10 3 - 16 mmol/L 10/17/2025 6:21 PM EST [facility] Blood, Arterial 10/17/2025 5 :42 PM EST 10/17/2025 6:21 PM EST Vani Winkler MD POINT OF CARE TEST ORDERABLE S Final Result [facility] [address] [place] [address]. [address] * (ABNORMAL) POC Chloride (10/17/2025 5:42 PM EST) Pathologist [facility] POC Chloride 111(H) 98 - 110 mmol/L 10/17/2025 6:21 PM EST [facility] Blood, Arterial 10/17/2025 5 :42 PM EST 10/17/2025 6:21 PM EST Vani Winkler MD POINT OF CARE TEST ORDERABLE S Final Result Performing Organization Address [facility]/ZIP Co de Phone Number [facility] [address] [place] [address]. [address] * (ABNORMAL) POC Hemoglobin (10/17/2025 5:42 PM EST) Pathologist [facility] POC Hemoglobin 7.9(L) 14.0 - 18.0 g/dL 10/17/2025 6:21 PM EST [facility] Blood, Arterial 10/17/2025 5 :42 PM EST 10/17/2025 6:21 PM EST Vani Wiknler MD POINT OF CARE TEST ORDERABLE S Final Result Performing Organization Address City/[facility]/ZIP Co de Phone Number [facility] [address] [place] [address]. [address] * (ABNORMAL) POC hematocrit (10/17/2025 5:42 PM EST) Pathologist [facility] POC Hematocrit 23.0(L) 40 - 52 % 10/17/2025 6:21 PM EST [facility] Blood, Arterial 10/17/2025 5 :42 PM EST 10/17/2025 6:21 PM EST Vani Winkler MD POINT OF CARE TEST ORDERABLE S Final Result [facility] [address] * (ABNORMAL) POC Lactate (10/17/2025 5:42 PM EST) POC Lactate 2.53(H) 0.50 - 2.20 mmol/L 10/17/2025 6:21 PM EST [facility] Blood, Arterial 10/17/2025 5 :42 PM EST 10/17/2025 6:21 PM EST Vani Winkler MD POINT OF CARE TEST ORDERABLE S Final Result [facility] [address] [facility]. [address] * POC Glucose (10/17/2025 5:42 PM EST) POC Glucose, Arterial 77 70 - 100 mg/dL 10/17/2025 6:21 PM EST [facility] Blood, Arterial 10/17/2025 5 :42 PM EST 10/17/2025 6:21 PM EST Vani Winkler MD POINT OF CARE TEST ORDERABLE S Final Result [facility] [address] [facility]. [address] * (ABNORMAL) POC Ionized Calcium (10/17/2025 5:42 PM EST) POC Ionized Calcium 5.90(H) 4.50 - 5.30 mg/dL 10/17/2025 6:21 PM EST [facility] Blood, Arterial 10/17/2025 5 :42 PM EST 10/17/2025 6:21 PM EST Vani Winkler MD POINT OF CARE TEST ORDERABLE S Final Result [facility] [address] [facility]. [address] * POC Potassium (10/17/2025 5:42 PM EST) POC Potassium 3.7 3.5 - 5.3 mmol/L 10/17/2025 6:21 PM EST [facility] Blood, Arterial 10/17/2025 5 :42 PM EST 10/17/2025 6:21 PM EST Vani Winkler MD POINT OF CARE TEST ORDERABLE S Final Result Performing Organization Address City/[facility]/ZIP Co de Phone Number [facility] [address] [facility]. [address] * POC Sodium (10/17/2025 5:42 PM EST) POC Sodium 141 136 - 146 mmol/L 10/17/2025 6:21 PM EST [facility] Blood, Arterial 10/17/2025 5 :42 PM EST 10/17/2025 6:21 PM EST Vani Winkler MD POINT OF CARE TEST ORDERABLE S Final Result [facility] [address] [facility]. [address] * (ABNORMAL) POC TCO2 (10/17/2025 5:42 PM EST) POC TCO2, Arterial 21(L) 23 - 27 mmol/L 10/17/2025 6:21 PM EST [facility] Blood, Arterial 10/17/2025 5 :42 PM EST 10/17/2025 6:21 PM EST Vani Winkler MD POINT OF CARE TEST ORDERABLE S Final Result Performing Organization Address City/[facility]/ZIP Co de Phone Number [facility] [address] [place] [address]. [address] * (ABNORMAL) POC O2 SAT (10/17/2025 5:42 PM EST) POC O2 Saturation, Arterial 99(H) 95 - 98 % 10/17/2025 6:21 PM EST [facility] Blood, Arterial 10/17/2025 5 :42 PM EST 10/17/2025 6:21 PM EST us Vani Winkler MD POINT OF CARE TEST ORDERABLE S Final Result Performing Organization Address [facility] Co de Phone Number [facility] [address] [place] [address]. [address] * (ABNORMAL) POC Base Excess (10/17/2025 5:42 PM EST) POC Base Excess, Arterial -4(L) -2 - 3 mmol/L 10/17/2025 6:21 PM EST [facility] Blood, Arterial 10/17/2025 5 :42 PM EST 10/17/2025 6:21 PM EST Vani Winkler MD POINT OF CARE TEST ORDERABLE S Final Result Performing Organization Address [facility]/ZIP Co de Phone Number [facility] [address] [place] [address]. [address] * (ABNORMAL) POC HCO3 (10/17/2025 5:42 PM EST) POC HCO3, Arterial 20(L) 22 - 26 mmol/L 10/17/2025 6:21 PM EST [facility] Blood, Arterial 10/17/2025 5 :42 PM EST 10/17/2025 6:21 PM EST Vani Winkler MD POINT OF CARE TEST ORDERABLE S Final Result [facility] [address] * (ABNORMAL) POC PO2 (10/17/2025 5:42 PM EST) POC pO2, Arterial 159(H) 80 - 100 mm Hg 10/17/2025 6:21 PM EST [facility] Blood, Arterial 10/17/2025 5 :42 PM EST 10/17/2025 6:21 PM EST Vani Winkler MD POINT OF CARE TEST ORDERABLE S Final Result Performing Organization Address City/[facility]/ZIP Co de Phone Number [facility] [address] * (ABNORMAL) POC PCO2 (10/17/2025 5:42 PM EST) POC pCO2, Arterial 33(L) 35 - 45 mm Hg 10/17/2025 6:21 PM EST [facility] Blood, Arterial 10/17/2025 5 :42 PM EST 10/17/2025 6:21 PM EST Vani Winkler MD POINT OF CARE TEST ORDERABLE S Final Result Performing Organization Address [facility]/ZIP Co de Phone Number [facility] [address] * POC pH (10/17/2025 5:42 PM EST) POC pH, Arterial 7.40 7.35 - 7.45 10/17/2025 6:21 PM EST [facility] Blood, Arterial 10/17/2025 5 :42 PM EST 10/17/2025 6:21 PM EST Vani Winkler MD POINT OF CARE TEST ORDERABLE S Final Result [facility] [address] * (ABNORMAL) POC INR (10/17/2025 5:37 [...] CARE TEST ORDERABLE S Final Result [facility] [address] * Transfuse RBC (10/17/2025 5:34 PM [...] [facility] - 10/17/2025 12:00 AM EST CASE: [id number] PATIENT: DAVID SERRANO Clinical History: transplant liver Pre-Operative Diagnosis: end stage liver disease Post-Operative Diagnosis: same Specimen(s) Submitted: A. Lummi liver and gallbladder; B. Right lobe post perfusion liver bx; C. Left lobe post perfusion liver bx CPT Code(s): 87811 X 2; 51283 X 1; 31097 X 7 Additional Information: FINAL DIAGNOSIS: Liver and gall bladder, [place], total hepatectomy with cholecystectomy: Liver: -Cirrhosis, mild [...] with the patient's name David Serrano and ak[place] liver and gallbladder is a 782 gram, [...] no discrete masses or lesions are identified. Therapeutic Consultant sections are submitted in cassettes [id number] as follows: A1: Therapeutic Consultant gallbladder. A2: Hilar margins, en face. A3-A5: Therapeutic Consultant right lobe. A6-A8: Therapeutic Consultant left lobe with liver written on the side of the cassette in A8. (LAISHA Miranda/) B. Received in formalin, labeled with the patient's name David Serrano and right lobe post perfusion liver biopsy is a 1.6 cm in length x 0.1 cm in diameter red-brown tissue core, which is entirely submitted between blue biopsy sponges in cassette [id number]. (LAISHA Miranda/vc) C. Received in formalin, labeled with the patient's name David Serrano and left lobe post perfusion liver biopsy is a 1.3 cm in length x 0.1 cm in diameter red-brown fragmented tissue core, which is entirely submitted between blue biopsy sponges in cassette [id number] C1. (LAISHA Miranda/vc) Microscopic Description: Sixteen HE [...] this report is located at [facility], [address] [place] [address], [facility] [phone], CLIA ID: [id number] Leticia Lomeli MD PATHOLOGY/CYTOLOGY ORDERABLES Final Result Performing Organization Address [facility] Co de Phone Number [facility] * Transfuse RBC (10/17/2025 5:19 PM EST) Slade Munoz MD NURSING TREATMENT ORDERABLES - B LOOD ADMIN Final Result * POC Sample Type (10/17/2025 5:00 PM EST) POC Sample Type Arterial 10/17/2025 5:03 PM EST [facility] Blood, Arterial 10/17/2025 5 :00 PM EST 10/17/2025 5:03 PM EST Vain Winkler MD POINT OF CARE TEST ORDERABLE S Final Result Performing Organization Address City/[facility]/ZIP Co de Phone Number [facility] [address] [place] [address] [place] [address], [place] * POC Anion Gap (10/17/2025 5:00 PM EST) POC Anion Gap, Arterial 11 3 - 16 mmol/L 10/17/2025 5:03 PM EST [facility] Blood, Arterial 10/17/2025 5 :00 PM EST 10/17/2025 5:03 PM EST Vani Winkler MD POINT OF CARE TEST ORDERABLE S Final Result [facility] [address] * POC Chloride (10/17/2025 5:00 PM EST) POC Chloride 109 98 - 110 mmol/L 10/17/2025 5:03 PM EST [facility] Blood, Arterial 10/17/2025 5 :00 PM EST 10/17/2025 5:03 PM EST Vani Winkelr MD POINT OF CARE TEST ORDERABLE S Final Result [facility] [address] * (ABNORMAL) POC Hemoglobin (10/17/2025 5:00 PM EST) POC Hemoglobin 7.9(L) 14.0 - 18.0 g/dL 10/17/2025 5:03 PM EST [facility] Blood, Arterial 10/17/2025 5 :00 PM EST 10/17/2025 5:03 PM EST Vani Winkler MD POINT OF CARE TEST ORDERABLE S Final Result [facility] [address] * (ABNORMAL) POC hematocrit (10/17/2025 5:00 PM EST) Pathologist [facility] POC Hematocrit 23.0(L) 40 - 52 % 10/17/2025 5:03 PM EST [facility] Blood, Arterial 10/17/2025 5 :00 PM EST 10/17/2025 5:03 PM EST Vani Winkler MD POINT OF CARE TEST ORDERABLE S Final Result [facility] [address] * (ABNORMAL) POC Lactate (10/17/2025 5:00 PM EST) [facility] POC Lactate 2.68(H) 0.50 - 2.20 mmol/L 10/17/2025 5:03 PM EST [facility] Blood, Arterial 10/17/2025 5 :00 PM EST 10/17/2025 5:03 PM EST Vani Winkler MD POINT OF CARE TEST ORDERABLE S Final Result [facility] [address] * POC Glucose (10/17/2025 5:00 PM EST) [facility] POC Glucose, Arterial 96 70 - 100 mg/dL 10/17/2025 5:03 PM EST [facility] Blood, Arterial 10/17/2025 5 :00 PM EST 10/17/2025 5:03 PM EST Vani Winkler MD POINT OF CARE TEST ORDERABLE S Final Result [facility] [address] [place] [address]. [address] * POC Ionized Calcium (10/17/2025 5:00 PM EST) Pathologist [facility] POC Ionized Calcium 4.60 4.50 - 5.30 mg/dL 10/17/2025 5:03 PM EST [facility] Blood, Arterial 10/17/2025 5 :00 PM EST 10/17/2025 5:03 PM EST Vani Winkler MD POINT OF CARE TEST ORDERABLE S Final Result [facility] [address] [facility]. [address] * POC Potassium (10/17/2025 5:00 PM EST) POC Potassium 3.7 3.5 - 5.3 mmol/L 10/17/2025 5:03 PM EST [facility] Blood, Arterial 10/17/2025 5 :00 PM EST 10/17/2025 5:03 PM EST Vani Winkler MD POINT OF CARE TEST ORDERABLE S Final Result Performing Organization Address City/[facility]/ZIP Co de Phone Number [facility] [address] [facility]. [address] * POC Sodium (10/17/2025 5:00 PM EST) POC Sodium 143 136 - 146 mmol/L 10/17/2025 5:03 PM EST [facility] Blood, Arterial 10/17/2025 5 :00 PM EST 10/17/2025 5:03 PM EST Vani Winkler MD POINT OF CARE TEST ORDERABLE S Final Result [facility] [address] [place] [address]. [address] * POC TCO2 (10/17/2025 5:00 PM EST) POC TCO2, Arterial 24 23 - 27 mmol/L 10/17/2025 5:03 PM EST [facility] Blood, Arterial 10/17/2025 5 :00 PM EST 10/17/2025 5:03 PM EST Vani Winkler MD POINT OF CARE TEST ORDERABLE S Final Result Performing Organization Address City/[facility] Co de Phone Number [facility] [address] * (ABNORMAL) POC O2 SAT (10/17/2025 5:00 PM EST) POC O2 Saturation, Arterial 100(H) 95 - 98 % 10/17/2025 5:03 PM EST [facility] Blood, Arterial 10/17/2025 5 :00 PM EST 10/17/2025 5:03 PM EST us Vani Winkler MD POINT OF CARE TEST ORDERABLE S Final Result Performing Organization Address [facility] Co de Phone Number [facility] [address] [facility]. [address] * POC Base Excess (10/17/2025 5:00 PM EST) POC Base Excess, Arterial -2 -2 - 3 mmol/L 10/17/2025 5:03 PM EST [facility] Blood, Arterial 10/17/2025 5 :00 PM EST 10/17/2025 5:03 PM EST Vani Winkler MD POINT OF CARE TEST ORDERABLE S Final Result Performing Organization Address City/[facility] Co de Phone Number [facility] [address] [facility]. [address] * POC HCO3 (10/17/2025 5:00 PM EST) POC HCO3, Arterial 23 22 - 26 mmol/L 10/17/2025 5:03 PM EST [facility] Blood, Arterial 10/17/2025 5 :00 PM EST 10/17/2025 5:03 PM EST Vani Winkler MD POINT OF CARE TEST ORDERABLE S Final Result Performing Organization Address City/State/[facility] Co de Phone Number [facility] [address] * (ABNORMAL) POC PO2 (10/17/2025 5:00 PM EST) POC pO2, Arterial 200(H) 80 - 100 mm Hg 10/17/2025 5:03 PM EST [facility] Blood, Arterial 10/17/2025 5 :00 PM EST 10/17/2025 5:03 PM EST Vani Winkler MD POINT OF CARE TEST ORDERABLE S Final Result Performing Organization Address [facility]/ZIP Co de Phone Number [facility] [address] [facility]. [address] * POC PCO2 (10/17/2025 5:00 PM EST) POC pCO2, Arterial 38 35 - 45 mm Hg 10/17/2025 5:03 PM EST [facility] Blood, Arterial 10/17/2025 5 :00 PM EST 10/17/2025 5:03 PM EST Vani Winkler MD POINT OF CARE TEST ORDERABLE S Final Result Performing Organization Address [facility]/ZIP Co de Phone Number [facility] [address] * POC pH (10/17/2025 5:00 PM EST) POC pH, Arterial 7.39 7.35 - 7.45 10/17/2025 5:03 PM EST [facility] Blood, Arterial 10/17/2025 5 :00 PM EST 10/17/2025 5:03 PM EST Vani Winkler MD POINT OF CARE TEST ORDERABLE S Final Result Performing Organization Address City/[facility]/ZIP Co de Phone Number [facility] [address] * (ABNORMAL) POC INR (10/17/2025 4:59 PM EST) Prothrombin Time INR, POC 1.7(H) 0.8 - 1.4 10/18/2025 12:07 AM EST [facility] Comment: Test results may vary [...] CARE TEST ORDERABLE S Final Result [facility] [address] [id number], [facility] * (ABNORMAL) TEG-Bypass/ECMO/Liver HN (Factor function, Platelet/Fibrin Clot Strength w/Clot Breakdown, Heparinase In All Channels) (10/17/2025 4:56 PM EST) Citrated Kaolin Reaction Time (TEGECMOLIVER) 4.7 4.6 - 9.1 minutes 10/17/2025 6:20 PM EST [facility] Citrated Kaolin W/Heparinase Reaction Time (TEGECMOLIVER) 4.7 4.3 - 8.3 minutes 10/17/2025 6:20 PM EST [facility] Citrated Kaolin Maximum Amplitude (TEGECMOLIVER) 42.4(L) 52.0 - 69.0 mm 10/17/2025 6:20 PM EST [facility] Citrated Functional Fibrinogen W/Heparinase Maximum Amplitude(TEGEC MOLIVER) 6.6(L) 15.0 - 34.0 mm 10/17/2025 6:20 PM EST [facility] Citrated Rapid Teg W/Heparinase Maximum Amplitude (TEGECMOLIVER) 39.8(L) 53.0 - 69.0 mm 10/17/2025 6:20 PM EST [facility] Citrated Kaolin w/Heparinase Percent Lysis (TEGECMOLIVER) 0.0 0.0 - 3.2 % 10/17/2025 6:20 PM EST [facility] Whole Blood (Citrate) 10/17/2025 4:56 PM EST 10/17/2025 5:06 PM EST Slade Munoz MD LAB BLOOD ORDERABLES Final Resul t Performing Organization Address [facility] de Phone Number [facility] [address] [place] [address]. [address] * (ABNORMAL) Protime-INR (10/17/2025 4:56 PM EST) Protime 26.4(H) 12.1 - 15.1 seconds 10/17/2025 5:31 PM EST [facility] INR 2.3(H) 0.9 - 1.1 10/17/2025 5:31 PM EST [facility] Comment: RECOMMENDED THERAPEUTIC RANGES USING INR : Stable oral anticoagulant therapy: 2.0 - 3.0 Mechanical prosthetic heart valve: 2.5 - 3.5 Recurrent acute myocardial infarction: 2.5 - 3.5 Plasma 10/17/2025 4:56 PM EST 10/17/2025 5:06 PM EST Slade Munoz MD LAB BLOOD ORDERABLES Final Resul t Performing Organization Address [facility] de Phone Number [facility] [address] [place] [address]. [address] * (ABNORMAL) Fibrinogen (10/17/2025 4:56 PM EST) Fibrinogen 137(L) 218 - 406 mg/dL 10/17/2025 5:36 PM EST [facility] Plasma 10/17/2025 4:56 PM EST 10/17/2025 5:06 PM EST Slade Munoz MD LAB BLOOD ORDERABLES Final Resul t Performing Organization Address [facility] Co de Phone Number [facility] [address] [place] [address]. [address] * (ABNORMAL) CBC (10/17/2025 4:56 PM EST) WBC 3.9 3.8 - 10.8 10E3/uL 10/17/2025 8:25 PM EST [facility] RBC 2.67(L) 4.20 - 5.80 10E6/uL 10/17/2025 8:25 PM EST [facility] Hemoglobin 9.2(L) 13.2 - 17.1 g/dL 10/17/2025 8:25 PM EST [facility] Hematocrit 26.1(L) 38.5 - 50.0 % 10/17/2025 8:25 PM EST [facility] MCV 98.0 80.0 - 100.0 fL 10/17/2025 8:25 PM EST [facility] MCH 34.5(H) 27.0 - 33.0 pg 10/17/2025 8:25 PM EST [facility] MCHC 35.3 32.0 - 36.0 g/dL 10/17/2025 8:25 PM EST [facility] RDW 17.9(H) 11.0 - 15.0 % 10/17/2025 8:25 PM EST [facility] Platelets 64(L) 140 - 400 10E3/uL 10/17/2025 8:25 PM EST [facility] MPV 8.2 7.5 - 11.5 fL 10/17/2025 8:25 PM EST [facility] Whole Blood 10/17/2025 4:56 PM EST 10/17/2025 5:19 PM EST us Slade Munoz MD LAB BLOOD ORDERABLES Final Resul t [facility] [address] * (ABNORMAL) APTT, No Anticoagulant (10/17/2025 4:56 PM EST) aPTT 55.7(H) 25.5 - 35.0 seconds 10/17/2025 5:32 PM EST [facility] Plasma 10/17/2025 4:56 PM EST 10/17/2025 5:06 PM EST us Slade Munoz MD LAB BLOOD ORDERABLES Final Resul t Performing Organization Address City/[facility] Co de Phone Number [facility] [address] * Transfuse Cryoprecipitate (10/17/2025 4:18 PM EST) us Slade Munoz MD NURSING TREATMENT ORDERABLES - B LOOD ADMIN Final Result * Transfuse Cryoprecipitate Transfusion Rate: Per dept routine (10/17/2025 4:18 PM EST) us Slade Munoz MD NURSING TREATMENT ORDERABLES - B LOOD ADMIN Final Result Performing Organization Address [facility] Co de Phone Number EXTERNAL * Transfuse Cryoprecipitate Transfusion Rate: Per dept routine, 1 Units (10/17/2025 4:18 PM EST) us Slade Munoz MD NURSING TREATMENT ORDERABLES - B LOOD ADMIN Final Result Performing Organization Address [facility] Co de Phone Number EXTERNAL * Transfuse Platelets (10/17/2025 4:06 PM EST) us Slade Munoz MD NURSING TREATMENT ORDERABLES - B LOOD ADMIN Final Result * POC Sample Type (10/17/2025 3:59 PM EST) POC Sample Type Arterial 10/17/2025 4:01 PM EST [facility] Blood, Arterial 10/17/2025 3 :59 PM EST 10/17/2025 4:01 PM EST Vani Winkler MD POINT OF CARE TEST ORDERABLE S Final Result Performing Organization Address City/[facility] Co de Phone Number [facility] [address] * POC Anion Gap (10/17/2025 3:59 PM EST) POC Anion Gap, Arterial 10 3 - 16 mmol/L 10/17/2025 4:01 PM EST [facility] Blood, Arterial 10/17/2025 3 :59 PM EST 10/17/2025 4:01 PM EST Vani Winkler MD POINT OF CARE TEST ORDERABLE S Final Result Performing Organization Address City/[facility]/ZIP Co de Phone Number [facility] [address] [facility]. [address] * (ABNORMAL) POC Chloride (10/17/2025 3:59 PM EST) POC Chloride 111(H) 98 - 110 mmol/L 10/17/2025 4:01 PM EST [facility] Blood, Arterial 10/17/2025 3 :59 PM EST 10/17/2025 4:01 PM EST Vani Winkler MD POINT OF CARE TEST ORDERABLE S Final Result Performing Organization Address [facility] Co de Phone Number [facility] [address] [facility] * (ABNORMAL) POC Hemoglobin (10/17/2025 3:59 PM EST) POC Hemoglobin 9.7(L) 14.0 - 18.0 g/dL 10/17/2025 4:01 PM EST [facility] Blood, Arterial 10/17/2025 3 :59 PM EST 10/17/2025 4:01 PM EST Vani Winkler MD POINT OF CARE TEST ORDERABLE S Final Result Performing Organization Address City/[facility]/ZIP Co de Phone Number [facility] [address] [facility]. [address] * (ABNORMAL) POC hematocrit (10/17/2025 3:59 PM EST) POC Hematocrit 29.0(L) 40 - 52 % 10/17/2025 4:01 PM EST [facility] Blood, Arterial 10/17/2025 3 :59 PM EST 10/17/2025 4:01 PM EST Vani Winkler MD POINT OF CARE TEST ORDERABLE S Final Result [facility] [address] [facility]. [address] * POC Lactate (10/17/2025 3:59 PM EST) POC Lactate 1.77 0.50 - 2.20 mmol/L 10/17/2025 4:01 PM EST [facility] Blood, Arterial 10/17/2025 3 :59 PM EST 10/17/2025 4:01 PM EST Vani Winkler MD POINT OF CARE TEST ORDERABLE S Final Result Performing Organization Address City/[facility] Co de Phone Number [facility] [address] [facility]. [address] * POC Glucose (10/17/2025 3:59 PM EST) POC Glucose, Arterial 81 70 - 100 mg/dL 10/17/2025 4:01 PM EST [facility] Blood, Arterial 10/17/2025 3 :59 PM EST 10/17/2025 4:01 PM EST Vani Winkler MD POINT OF CARE TEST ORDERABLE S Final Result Performing Organization Address City/[facility]/ZIP Co de Phone Number [facility] [address] * POC Ionized Calcium (10/17/2025 3:59 PM EST) POC Ionized Calcium 4.90 4.50 - 5.30 mg/dL 10/17/2025 4:01 PM EST [facility] Blood, Arterial 10/17/2025 3 :59 PM EST 10/17/2025 4:01 PM EST Vani Winkler MD POINT OF CARE TEST ORDERABLE S Final Result [facility] [address] * POC Potassium (10/17/2025 3:59 PM EST) POC Potassium 3.7 3.5 - 5.3 mmol/L 10/17/2025 4:01 PM EST [facility] Blood, Arterial 10/17/2025 3 :59 PM EST 10/17/2025 4:01 PM EST Vani Winkler MD POINT OF CARE TEST ORDERABLE S Final Result Performing Organization Address City/[facility]/ZIP Co de Phone Number [facility] [address] * POC Sodium (10/17/2025 3:59 PM EST) POC Sodium 145 136 - 146 mmol/L 10/17/2025 4:01 PM EST [facility] Blood, Arterial 10/17/2025 3 :59 PM EST 10/17/2025 4:01 PM EST Vani Winkler MD POINT OF CARE TEST ORDERABLE S Final Result Performing Organization Address City/[facility]/ZIP Co de Phone Number [facility] [address] [facility]. [address] * POC TCO2 (10/17/2025 3:59 PM EST) POC TCO2, Arterial 26 23 - 27 mmol/L 10/17/2025 4:01 PM EST [facility] Blood, Arterial 10/17/2025 3 :59 PM EST 10/17/2025 4:01 PM EST Vani Winkler MD POINT OF CARE TEST ORDERABLE S Final Result [facility] [address] * (ABNORMAL) POC O2 SAT (10/17/2025 3:59 PM EST) POC O2 Saturation, Arterial 100(H) 95 - 98 % 10/17/2025 4:01 PM EST [facility] Blood, Arterial 10/17/2025 3 :59 PM EST 10/17/2025 4:01 PM EST Vani Winkler MD POINT OF CARE TEST ORDERABLE S Final Result [facility] [address] [facility]. [address] * POC Base Excess (10/17/2025 3:59 PM EST) POC Base Excess, Arterial -1 -2 - 3 mmol/L 10/17/2025 4:01 PM EST [facility] Blood, Arterial 10/17/2025 3 :59 PM EST 10/17/2025 4:01 PM EST Vani Winkler MD POINT OF CARE TEST ORDERABLE S Final Result Performing Organization Address City/[facility] Co de Phone Number [facility] [address] [facility]. [address] * POC HCO3 (10/17/2025 3:59 PM EST) POC HCO3, Arterial 24 22 - 26 mmol/L 10/17/2025 4:01 PM EST [facility] Blood, Arterial 10/17/2025 3 :59 PM EST 10/17/2025 4:01 PM EST Vani Winkler MD POINT OF CARE TEST ORDERABLE S Final Result Performing Organization Address City/[facility] Co de Phone Number [facility] [address] [facility]. [address] * (ABNORMAL) POC PO2 (10/17/2025 3:59 PM EST) POC pO2, Arterial 213(H) 80 - 100 mm Hg 10/17/2025 4:01 PM EST [facility] Blood, Arterial 10/17/2025 3 :59 PM EST 10/17/2025 4:01 PM EST Vani Winkler MD POINT OF CARE TEST ORDERABLE S Final Result [facility] [address] [facility]. [address] * POC PCO2 (10/17/2025 3:59 PM EST) POC pCO2, Arterial 45 35 - 45 mm Hg 10/17/2025 4:01 PM EST [facility] Blood, Arterial 10/17/2025 3 :59 PM EST 10/17/2025 4:01 PM EST Vani Winkler MD POINT OF CARE TEST ORDERABLE S Final Result [facility] [address] [facility]. [address] * (ABNORMAL) POC pH (10/17/2025 3:59 PM EST) POC pH, Arterial 7.34(L) 7.35 - 7.45 10/17/2025 4:01 PM EST [facility] Blood, Arterial 10/17/2025 3 :59 PM EST 10/17/2025 4:01 PM EST Vani Winkler MD POINT OF CARE TEST ORDERABLE S Final Result [facility] [address] [facility]. [address] * (ABNORMAL) POC INR (10/17/2025 3:58 PM EST) Prothrombin Time INR, POC 2.8(H) 0.8 - 1.4 10/18/2025 12:07 AM EST [facility] Comment: Test results may vary [...] CARE TEST ORDERABLE S Final Result [facility] [address] [place] [address], [facility] * Transfuse RBC (10/17/2025 3:23 PM EST) us Slade Munoz MD NURSING TREATMENT ORDERABLES - B LOOD ADMIN Final Result * Transfuse RBC (10/17/2025 3:15 PM EST) us Slade Munoz MD NURSING TREATMENT ORDERABLES - B LOOD ADMIN Final Result * (ABNORMAL) TEG-Bypass/ECMO/Liver HN (Factor function, Platelet/Fibrin Clot Strength w/Clot Breakdown, Heparinase In All Channels) (10/17/2025 2:55 PM EST) [facility] Citrated Kaolin Reaction Time (TEGECMOLIVER) 5.1 4.6 - 9.1 minutes 10/17/2025 4:23 PM EST [facility] Citrated Kaolin W/Heparinase Reaction Time (TEGECMOLIVER) 5.2 4.3 - 8.3 minutes 10/17/2025 4:23 PM EST [facility] Citrated Kaolin Maximum Amplitude (TEGECMOLIVER) <40.0(L) 52.0 - 69.0 mm 10/17/2025 4:23 PM EST [facility] Citrated Functional Fibrinogen W/Heparinase Maximum Amplitude(TEGEC MOLIVER) <6.0(L) 15.0 - 34.0 mm 10/17/2025 4:23 PM EST [facility] Citrated Rapid Teg W/Heparinase Maximum Amplitude (TEGECMOLIVER) 32.8(L) 53.0 - 69.0 mm 10/17/2025 4:23 PM EST [facility] Citrated Kaolin w/Heparinase Percent Lysis (TEGECMOLIVER) 0.0 0.0 - 3.2 % 10/17/2025 4:23 PM EST [facility] Whole Blood (Citrate) 10/17/2025 2:55 PM EST 10/17/2025 3:05 PM EST us Slade Munoz MD LAB BLOOD ORDERABLES Final Resul t [facility] [address] [place] [address], [facility] * (ABNORMAL) CBC (10/17/2025 2:55 PM EST) WBC 4.4 3.8 - 10.8 10E3/uL 10/17/2025 3:20 PM EST [facility] RBC 2.90(L) 4.20 - 5.80 10E6/uL 10/17/2025 3:20 PM EST [facility] Hemoglobin 10.0(L) 13.2 - 17.1 g/dL 10/17/2025 3:20 PM EST [facility] Hematocrit 28.6(L) 38.5 - 50.0 % 10/17/2025 3:20 PM EST [facility] MCV 98.7 80.0 - 100.0 fL 10/17/2025 3:20 PM EST [facility] MCH 34.4(H) 27.0 - 33.0 pg 10/17/2025 3:20 PM EST [facility] MCHC 34.8 32.0 - 36.0 g/dL 10/17/2025 3:20 PM EST [facility] RDW 17.0(H) 11.0 - 15.0 % 10/17/2025 3:20 PM EST [facility] Platelets 53(L) 140 - 400 10E3/uL 10/17/2025 3:20 PM EST [facility] MPV 7.6 7.5 - 11.5 fL 10/17/2025 3:20 PM EST [facility] Whole Blood 10/17/2025 2:55 PM EST 10/17/2025 3:06 PM EST Slade Munoz MD LAB BLOOD ORDERABLES Final Resul t Performing Organization Address City/[facility]/ZIP Co de Phone Number [facility] [address] [facility]. [address] * (ABNORMAL) Fibrinogen (10/17/2025 2:55 PM EST) Fibrinogen 85(LL) 218 - 406 mg/dL 10/17/2025 3:46 PM EST [facility] Comment:The critical result was called to, and read back by, licensed caregiver CAMI GALEANO MD, AT 1545 Plasma 10/17/2025 2:55 PM EST 10/17/2025 3:06 PM EST Result [facility] Slade Munoz MD LAB BLOOD ORDERABLES Final Resul t Performing Organization Address [facility] Co de Phone Number [facility] [address] * (ABNORMAL) Protime-INR (10/17/2025 2:55 PM EST) Pathologist [facility] Protime 26.5(H) 12.1 - 15.1 seconds 10/17/2025 3:30 PM EST [facility] INR 2.3(H) 0.9 - 1.1 10/17/2025 3:30 PM EST [facility] Comment: RECOMMENDED THERAPEUTIC RANGES USING INR : Stable oral anticoagulant therapy: 2.0 - 3.0 Mechanical prosthetic heart valve: 2.5 - 3.5 Recurrent acute myocardial infarction: 2.5 - 3.5 Plasma 10/17/2025 2:55 PM EST 10/17/2025 3:06 PM EST Slade Munoz MD LAB BLOOD ORDERABLES Final Resul t Performing Organization Address City/[facility] Co de Phone Number [facility] [address] [facility]. [address] * POC Sample Type (10/17/2025 2:54 PM EST) Pathologist [facility] POC Sample Type Arterial 10/17/2025 3:55 PM EST [facility] Blood, Arterial 10/17/2025 2 :54 PM EST 10/17/2025 3:55 PM EST Vani Winkler MD POINT OF CARE TEST ORDERABLE S Final Result [facility] [address] [place] [address]. [address] * POC Anion Gap (10/17/2025 2:54 PM EST) POC Anion Gap, Arterial 10 3 - 16 mmol/L 10/17/2025 3:55 PM EST [facility] Blood, Arterial 10/17/2025 2 :54 PM EST 10/17/2025 3:55 PM EST Vani Winkler MD POINT OF CARE TEST ORDERABLE S Final Result Performing Organization Address City/[facility]/ZIP Co de Phone Number [facility] [address] [facility]. [address] * (ABNORMAL) POC Chloride (10/17/2025 2:54 PM EST) Pathologist [facility] POC Chloride 112(H) 98 - 110 mmol/L 10/17/2025 3:55 PM EST [facility] Blood, Arterial 10/17/2025 2 :54 PM EST 10/17/2025 3:55 PM EST Vani Winkler MD POINT OF CARE TEST ORDERABLE S Final Result Performing Organization Address City/[facility]/ZIP Co de Phone Number [facility] [address] [place] [address]. [address] * (ABNORMAL) POC Hemoglobin (10/17/2025 2:54 PM EST) POC Hemoglobin 8.7(L) 14.0 - 18.0 g/dL 10/17/2025 3:55 PM EST [facility] Blood, Arterial 10/17/2025 2 :54 PM EST 10/17/2025 3:55 PM EST Vani Winkler MD POINT OF CARE TEST ORDERABLE S Final Result [facility] [address] [place] [address]. [address] * (ABNORMAL) POC hematocrit (10/17/2025 2:54 PM EST) POC Hematocrit 26.0(L) 40 - 52 % 10/17/2025 3:55 PM EST [facility] Blood, Arterial 10/17/2025 2 :54 PM EST 10/17/2025 3:55 PM EST Vani Winkler MD POINT OF CARE TEST ORDERABLE S Final Result Performing Organization Address [facility] Co de Phone Number [facility] [address] [place] [address]. [address] * POC Lactate (10/17/2025 2:54 PM EST) POC Lactate 1.23 0.50 - 2.20 mmol/L 10/17/2025 3:55 PM EST [facility] Blood, Arterial 10/17/2025 2 :54 PM EST 10/17/2025 3:55 PM EST Result [facility] Vani Winkler MD POINT OF CARE TEST ORDERABLE S Final Result [facility] [address] [facility]. [address] * POC Glucose (10/17/2025 2:54 PM EST) POC Glucose, Arterial 74 70 - 100 mg/dL 10/17/2025 3:55 PM EST [facility] Blood, Arterial 10/17/2025 2 :54 PM EST 10/17/2025 3:55 PM EST Vani Winkler MD POINT OF CARE TEST ORDERABLE S Final Result [facility] [address] [facility]. [address] * POC Ionized Calcium (10/17/2025 2:54 PM EST) POC Ionized Calcium 4.70 4.50 - 5.30 mg/dL 10/17/2025 3:55 PM EST [facility] Blood, Arterial 10/17/2025 2 :54 PM EST 10/17/2025 3:55 PM EST Vani Winkler MD POINT OF CARE TEST ORDERABLE S Final Result Performing Organization Address [facility] Co de Phone Number [facility] [address] [facility]. [address] * (ABNORMAL) POC Potassium (10/17/2025 2:54 PM EST) POC Potassium 3.2(L) 3.5 - 5.3 mmol/L 10/17/2025 3:55 PM EST [facility] Blood, Arterial 10/17/2025 2 :54 PM EST 10/17/2025 3:55 PM EST Vani Winkler MD POINT OF CARE TEST ORDERABLE S Final Result Performing Organization Address City/[facility]/ZIP Co de Phone Number [facility] [address] [facility]. [address] * POC Sodium (10/17/2025 2:54 PM EST) POC Sodium 145 136 - 146 mmol/L 10/17/2025 3:55 PM EST [facility] Blood, Arterial 10/17/2025 2 :54 PM EST 10/17/2025 3:55 PM EST Vani Winkler MD POINT OF CARE TEST ORDERABLE S Final Result [facility] [address] * POC TCO2 (10/17/2025 2:54 PM EST) POC TCO2, Arterial 24 23 - 27 mmol/L 10/17/2025 3:55 PM EST [facility] Blood, Arterial 10/17/2025 2 :54 PM EST 10/17/2025 3:55 PM EST Vani Winkler MD POINT OF CARE TEST ORDERABLE S Final Result [facility] [address] * (ABNORMAL) POC O2 SAT (10/17/2025 2:54 PM EST) POC O2 Saturation, Arterial 100(H) 95 - 98 % 10/17/2025 3:55 PM EST [facility] Blood, Arterial 10/17/2025 2 :54 PM EST 10/17/2025 3:55 PM EST Vani Winkler MD POINT OF CARE TEST ORDERABLE S Final Result Performing Organization Address City/[facility]/ZIP Co de Phone Number [facility] [address] * POC Base Excess (10/17/2025 2:54 PM EST) POC Base Excess, Arterial -2 -2 - 3 mmol/L 10/17/2025 3:55 PM EST [facility] Blood, Arterial 10/17/2025 2 :54 PM EST 10/17/2025 3:55 PM EST Vani Winkler MD POINT OF CARE TEST ORDERABLE S Final Result [facility] [address] * POC HCO3 (10/17/2025 2:54 PM EST) POC HCO3, Arterial 23 22 - 26 mmol/L 10/17/2025 3:55 PM EST [facility] Blood, Arterial 10/17/2025 2 :54 PM EST 10/17/2025 3:55 PM EST Vani Winkler MD POINT OF CARE TEST ORDERABLE S Final Result [facility] [address] [place] [address]. [address] * (ABNORMAL) POC PO2 (10/17/2025 2:54 PM EST) POC pO2, Arterial 179(H) 80 - 100 mm Hg 10/17/2025 3:55 PM EST [facility] Blood, Arterial 10/17/2025 2 :54 PM EST 10/17/2025 3:55 PM EST Vani Winkler MD POINT OF CARE TEST ORDERABLE S Final Result Performing Organization Address [facility] Co de Phone Number [facility] [address] [facility]. [address] * POC PCO2 (10/17/2025 2:54 PM EST) POC pCO2, Arterial 40 35 - 45 mm Hg 10/17/2025 3:55 PM EST [facility] Blood, Arterial 10/17/2025 2 :54 PM EST 10/17/2025 3:55 PM EST Vani Winkler MD POINT OF CARE TEST ORDERABLE S Final Result Performing Organization Address City/[facility] Co de Phone Number [facility] [address] [place] [address]. [address] * POC pH (10/17/2025 2:54 PM EST) POC pH, Arterial 7.37 7.35 - 7.45 10/17/2025 3:55 PM EST [facility] Blood, Arterial 10/17/2025 2 :54 PM EST 10/17/2025 3:55 PM EST Vani Winkler MD POINT OF CARE TEST ORDERABLE S Final Result Performing Organization Address City/[facility]/ZIP Co de Phone Number [facility] [address] * (ABNORMAL) POC INR (10/17/2025 2:53 PM EST) Prothrombin Time INR, POC 2.4(H) 0.8 - 1.4 10/18/2025 12:07 AM EST [facility] Comment: Test results may vary [...] S Final Result Performing Organization Address [facility] Co de Phone Number [facility] [address] [facility]. [address] * Routine Culture plus Stain (Surgical Swab) (10/17/2025 2:50 PM EST) Gram Stain Result Rare Polymorphonuclear Leukocytes Seen [facility] Gram Stain Result No Organisms Seen; [facility] Culture Result No Growth After 3 Days [facility] Surgical Swab PERITONEAL FLUID / Unknown 10/17/2025 2:50 PM EST Comment:1. Ascites-anaerobic , aerobic, and fungal Narrative [facility] - 10/20/2025 11:09 AM EST 1. Ascites-anaerobic, aerobic, and fungal 1. Ascites-anaerobic, aerobic, and fungal Vani Winkler MD MICROBIOLOGY - GENERAL ORDER MARYA Final Result [facility] [address] * Anaerobic culture (Surgical Swab) (10/17/2025 2:50 PM EST) Culture Result No Anaerobes Isolated in 5 Days [facility] Surgical Swab PERITONEAL FLUID / Unknown 10/17/2025 2:50 PM EST Comment:1. Ascites-anaerobic , aerobic, and fungal Narrative [facility] - 10/22/2025 11:32 AM EST 1. Ascites-anaerobic, aerobic, and fungal 1. Ascites-anaerobic, aerobic, and fungal Vani Winkler MD MICROBIOLOGY - GENERAL ORDER MARYA Final Result Performing Organization Address [facility] Co de Phone Number [facility] [address] * (ABNORMAL) TEG-Standard Global Hemostasis (Rapid TEG with Heparin Effect, Contains a Baseline TEG) (10/17/2025 10:19 AM EST) Citrated Kaolin Reaction Time (TEGHEPARINASE) 7.2 4.6 - 9.1 minutes 10/17/2025 11:27 AM EST [facility] Citrated Rapid Teg Maximum Amplitude (TEGHEPARINASE) <40.0(L) 52.0 - 70.0 mm 10/17/2025 11:27 AM EST [facility] Citrated Functional Fibrinogen Maximum Amplitude (TEGHEPARINASE) 5.8(L) 15.0 - 32.0 mm 10/17/2025 11:27 AM EST [facility] Citrated Kaolin W/Heparinase Reaction Time (TEGHEPARINASE) 6.7 4.3 - 8.3 minutes 10/17/2025 11:27 AM EST [facility] Citrated Kaolin K-Time (TEGHEPARINASE) 2.9(H) 0.8 - 2.1 minutes 10/17/2025 11:27 AM EST [facility] Citrated Kaolin Angle (TEGHEPARINASE) 64.4 63.0 - 78.0 degrees 10/17/2025 11:27 AM EST [facility] Citrated Kaolin Maximum Amplitude (TEGHEPARINASE) <40.0(L) 52.0 - 69.0 mm 10/17/2025 11:27 AM EST [facility] Citrated Functional Fibrinogen- Fibrinogen Level (TEGHEPARINASE) 156.5(L) 278.0 - 581.0 mg/dL 10/17/2025 11:27 AM EST [facility] Whole Blood (Citrate) 10/17/2025 10:19 AM EST 10/17/2025 10:46 AM EST [facility] BLOOD ORDERABLES Final Re sult Performing Organization Address City/[facility]/ZIP Co de Phone Number [facility] [address] [facility]. [address] * Hepatitis C RNA, Quant Reflex to Genotyp (10/17/2025 10:19 AM EST) International Units Not Detected IU/mL 10/19/2025 2:12 PM EST [facility] Comment:Test methodology for HCV RNA quantification is an FDA-approved nucleic acid amplification assay. The Lower Limit of Quantitation (LLOQ) is 15 IU/mL. The linear range of the assay is 15-100,000,000 IU/mL. The Limit of Detection (LoD) is 12.0 IU/mL for EDTA plasma. The reference range is Not Detected. IU log10 See Note log 10 IU/mL 10/19/2025 2:12 PM EST [facility] Comment:HCV RNA not detected . Plasma 10/17/2025 10:1 9 AM EST 10/17/2025 11:09 AM EST [facility] [place] LAB BLOOD ORDERABLES Final Re sult Performing Organization Address City/[facility]/ZIP Co de Phone Number [facility] [address] [facility]. [address] * (ABNORMAL) APTT, No Anticoagulant (10/17/2025 10:19 AM EST) aPTT 41.2(H) 25.5 - 35.0 seconds 10/17/2025 11:02 AM EST [facility] Plasma 10/17/2025 10:1 9 AM EST 10/17/2025 10:46 AM EST [facility] LAB BLOOD ORDERABLES Final Re sult Performing Organization Address City/[facility]/ZIP Co de Phone Number [facility] [address] [facility]. [address] * (ABNORMAL) Fibrinogen (10/17/2025 10:19 AM EST) Pathologist [facility] Fibrinogen 116(L) 218 - 406 mg/dL 10/17/2025 11:08 AM EST [facility] Plasma 10/17/2025 10:1 9 AM EST 10/17/2025 10:46 AM EST [facility] LAB BLOOD ORDERABLES Final Re sult Performing Organization Address [facility] Co de Phone Number [facility] [address] [facility]. [address] * Magnesium, STAT (10/17/2025 10:18 AM EST) Pathologist [facility] Magnesium 1.7 1.5 - 2.5 mg/dL 10/17/2025 11:46 AM EST [facility] Plasma 10/17/2025 10:1 8 AM EST 10/17/2025 10:46 AM EST [facility] [place] LAB BLOOD ORDERABLES Final Re sult Performing Organization Address City/[facility] Co de Phone Number [facility] [address] [facility] * (ABNORMAL) Jose-Mims Virus VCA IgG Ab (10/17/2025 10:18 AM EST) Pathologist [facility] EBV VCA IgG Positive( A) Negative 10/17/2025 12:18 PM EST [facility] Comment:Presence of detectab le VCA IgG antibodies. A positive result indicates current or past exposure to Jose-Mims virus. EBV IGG NUM >750.00(H ) 0.00 - 17.99 U/mL 10/17/2025 12:18 PM EST [facility] Serum 10/17/2025 10:1 8 AM EST 10/17/2025 10:46 AM EST [facility] LAB BLOOD ORDERABLES Final Re sult [facility] [address] * CMV IgG Antibody (10/17/2025 10:18 AM EST) CMV IgG Negative Negative 10/17/2025 12:16 PM EST [facility] CMV IGG NUM <0.20 0.00 - 0.59 U/mL 10/17/2025 12:16 PM EST [facility] Serum 10/17/2025 10:1 8 AM EST 10/17/2025 10:46 AM EST [facility] LAB BLOOD ORDERABLES Final Re sult [facility] [address] * HIV 1+2 Antibody/Antigen with Reflex (10/17/2025 10:18 AM EST) HIV 1+2 AB/AGN Nonreactive Nonreactive 10/17/2025 12:16 PM EST [facility] Serum 10/17/2025 10:1 8 AM EST 10/17/2025 10:46 AM EST Narrative [facility] - 10/17/2025 12:16 PM EST \HIVRNR [facility] LAB BLOOD ORDERABLES Final Re sult [facility] [address] * Hepatitis B Core Antibody (10/17/2025 10:18 AM EST) Hep B Core Total Ab Nonreactive Nonreactive 10/17/2025 12:17 PM EST [facility] Comment:Health Department no tified in accordance with reportable infectious disease guidelines. Serum 10/17/2025 10:1 8 AM EST 10/17/2025 10:46 AM EST [facility] - 10/17/2025 12:17 PM EST A nonreactive final interpretation indicates that anti-HBc antibodies were not detected in the sample; it is possible that the individual is not infected with HBV. [facility] LAB BLOOD ORDERABLES Final Re sult Performing Organization Address City/[facility]/ZIP Co de Phone Number [facility] [address] [facility] * Hepatitis C Antibody (10/17/2025 10:18 AM EST) HCV Ab Nonreactive Nonreactive 10/17/2025 12:25 PM EST [facility] Comment:Health Department no tified in accordance with reportable infectious disease guidelines. Serum 10/17/2025 10:1 8 AM EST 10/17/2025 10:46 AM EST [facility] - 10/17/2025 12:25 PM EST Antibodies to HCV not detected; does not exclude the possibility of exposure to HCV. [facility] [place] LAB BLOOD ORDERABLES Final Re sult Performing Organization Address City/[facility]/ZIP Co de Phone Number [facility] [address]. [address] * (ABNORMAL) Hepatitis B Surface Antibody, Quantitati (10/17/2025 10:18 AM EST) Hep B S Ab Reactive( A) Nonreactive 10/17/2025 12:29 PM EST [facility] HBSAB NUMBER [id number](H) 0.00 - 7.99 mIU/mL 10/17/2025 12:29 PM EST [facility] Serum 10/17/2025 10:1 8 AM EST 10/17/2025 10:46 AM EST [facility] - 10/17/2025 12:29 PM EST Individual is considered immune to HBV infection. [facility] BLOOD ORDERABLES Final Re sult Performing Organization Address [facility] Co de Phone Number [facility] [address] * Hepatitis B surface antigen (10/17/2025 10:18 AM EST) Hep B Surface Ag Nonreactive Nonreactive 10/17/2025 12:21 PM EST [facility] Comment:Health Department no tified in accordance with reportable infectious disease guidelines. Serum 10/17/2025 10:1 8 AM EST 10/17/2025 10:46 AM EST [facility] - 10/17/2025 12:21 PM EST Specimen is considered negative for HBsAg. [facility] BLOOD ORDERABLES Final Re sult Performing Organization Address [facility] Co de Phone Number [facility] [facility] [address] * Hepatitis A Antibody Total (10/17/2025 10:18 AM EST) Anti-HAV Total (IgG + IgM) Reactive 10/17/2025 12:22 PM EST [facility] Serum 10/17/2025 10:1 8 AM EST 10/17/2025 10:46 AM EST [facility] - 10/17/2025 12:22 PM EST HAV antibodies detected [facility] [place] [facility] BLOOD ORDERABLES Final Re sult Performing Organization Address City/[facility] Co de Phone Number [facility] [address] [facility]. [address] * Vitamin D 25 Hydroxy (10/17/2025 10:18 AM EST) Vit D, 25-Hydroxy 39.3 30.0 - 100.0 ng/mL 10/17/2025 12:15 PM EST [facility] Comment: Vitamin D deficiency has been defined by the [place] [employer] (IOM) and an Endocrine Society [...] ORDERABLES Final Re sult Performing Organization Address City/[facility]/ZIP Co de Phone Number [facility] [address] [place] [address]. [address] * Antibody Screen (10/17/2025 10:18 AM EST) Antibody Screen Negative 10/17/2025 11:09 AM EST [facility] Blood 10/17/2025 10:1 8 AM EST 10/17/2025 10:26 AM EST Narrative [facility] - 10/17/2025 11:17 AM EST Testing performed by [facility] BLOOD BANK TEST ORDERABLES Fi nal Result [facility] [address] [place] [address] * ABO/Rh (10/17/2025 10:18 AM EST) ABO Grouping A 10/17/2025 10:53 AM EST [facility] Rh Type Positive 10/17/2025 10:53 AM EST [facility] Blood 10/17/2025 10:1 8 AM EST 10/17/2025 10:26 AM EST [facility] TEST ORDERABLES Fi nal Result [facility] [address] [facility]. [address] * (ABNORMAL) Hepatic Function Panel (10/17/2025 10:18 AM EST) Total Bilirubin 4.9(H) 0.0 - 1.5 mg/dL 10/17/2025 11:47 AM EST [facility] Bilirubin, Direct 1.35(H) 0.00 - 0.40 mg/dL 10/17/2025 11:47 AM EST [facility] AST 39 13 - 39 U/L 10/17/2025 11:47 AM EST [facility] ALT 27 7 - 52 U/L 10/17/2025 11:47 AM EST [facility] Alkaline Phosphatase 143(H) 36 - 125 U/L 10/17/2025 11:47 AM EST [facility] Total Protein 6.5 6.4 - 8.9 g/dL 10/17/2025 11:47 AM EST [facility] Albumin 2.3(L) 3.5 - 5.7 g/dL 10/17/2025 11:47 AM EST [facility] Bilirubin, Indirect 3.55(H) 0.00 - 1.10 mg/dL 10/17/2025 11:47 AM EST [facility] Plasma 10/17/2025 10:1 8 AM EST 10/17/2025 10:46 AM EST [facility] BLOOD ORDERABLES Final Re sult [facility] [address] [facility]. [address] * (ABNORMAL) Renal Function Panel w/EGFR (10/17/2025 10:18 AM EST) Sodium 141 133 - 146 mmol/L 10/17/2025 11:47 AM EST [facility] Potassium 3.3(L) 3.5 - 5.3 mmol/L 10/17/2025 11:47 AM [facility] Chloride 110 98 - 110 mmol/L 10/17/2025 11:47 AM [facility] CO2 29 21 - 33 mmol/L 10/17/2025 11:47 AM [facility] Comment:High lactate dehydro genase concentrations in patient samples may cause falsely increased bicarbonate results. If markedly elevated LDH is observed or suspected, please assess results in conjunction with patient`s clinical presentation. In cases of discrepant results, consider evaluating CO2 in with a blood gas order. Anion Gap 2(L) 3 - 16 mmol/L 10/17/2025 11:47 AM [facility] BUN 13 7 - 25 mg/dL 10/17/2025 11:47 AM [facility] Creatinine 0.81 0.60 - 1.30 mg/dL 10/17/2025 11:47 AM [facility] Glucose 81 70 - 100 mg/dL 10/17/2025 11:47 AM [facility] Calcium 8.1(L) 8.6 - 10.3 mg/dL 10/17/2025 11:47 AM [facility] Phosphorus 2.8 2.1 - 4.7 mg/dL 10/17/2025 11:47 AM [facility] Albumin 2.3(L) 3.5 - 5.7 g/dL 10/17/2025 11:47 AM [facility] Osmolality, Calculated 291 278 - 305 mOsm/kg 10/17/2025 11:47 AM [facility] EGFR >90 10/17/2025 11:47 AM [facility] Comment: As of 2022, [...] Reference: Sachin Flannery, Kathy M, Rebecca DC, Joseu ND, Dee Dee [place], Nazia MARIE, et [...] ORDERABLES Final Re sult Performing Organization Address [facility] Co de Phone Number [facility] [address] * Hemoglobin A1C (10/17/2025 10:18 AM EST) Hemoglobin A1C 4.0 4.0 - 5.6 % 10/17/2025 1:42 PM EST [facility] Comment: Hemoglobin A1c Interpretation Guidelines: Normal: [...] ORDERABLES Final Re sult Performing Organization Address [facility] Co de Phone Number [facility] [address] * (ABNORMAL) Venous Blood Gas, Line/Syringe, STAT (10/17/2025 10:18 AM EST) PH-Line Draw 7.37 7.32 - 7.42 10/17/2025 10:27 AM EST [facility] PCO2-Line Draw 46 41 - 51 mm Hg 10/17/2025 10:27 AM EST [facility] PO2-Line Draw 29 25 - 40 mm Hg 10/17/2025 10:27 AM EST [facility] HCO3-Line Draw 24 24 - 28 mmol/L 10/17/2025 10:27 AM EST [facility] CO2 Content-Line Draw 28 25 - 29 mmol/L 10/17/2025 10:27 AM EST [facility] Base Excess-Line Draw 0.9 -2.0 - 3.0 mmol/L 10/17/2025 10:27 AM EST [facility] %HBO2-Line Draw 38.5(L) 40.0 - 70.0 % 10/17/2025 10:27 AM EST [facility] Carboxyhgb-Rebecca e Draw 1.4 0.0 - 2.0 % 10/17/2025 10:27 AM EST [facility] Comment: CARBOXYHEMOGLOBIN (CO) REFERENCE RANGES: Non-Smokers: <2 % Smokers: <8 % TOXIC: >20 % Methemoglobin- Line Draw 0.6 0.0 - 1.5 % 10/17/2025 10:27 AM EST [facility] Blood, Venous 10/17/2025 10: 18 AM EST 10/17/2025 10:24 AM EST [facility] BLOOD ORDERABLES Final Re sult Performing Organization Address City/State/[facility] Co de Phone Number [facility] [address] * (ABNORMAL) Protime-INR (10/17/2025 10:18 AM EST) Protime 21.7(H) 12.1 - 15.1 seconds 10/17/2025 11:01 AM EST [facility] INR 1.8(H) 0.9 - 1.1 10/17/2025 11:01 AM EST [facility] Comment: RECOMMENDED THERAPEUTIC RANGES USING INR : Stable oral anticoagulant therapy: 2.0 - 3.0 Mechanical prosthetic heart valve: 2.5 - 3.5 Recurrent acute myocardial infarction: 2.5 - 3.5 Plasma 10/17/2025 10:1 8 AM EST 10/17/2025 10:46 AM EST [facility] BLOOD ORDERABLES Final Re sult [facility] [address] [facility]. [address] * (ABNORMAL) Differential (10/17/2025 10:18 AM EST) Neutrophils Relative 45.0 40.0 - 80.0 % 10/17/2025 10:59 AM EST [facility] Lymphocytes Relative 34.7 15.0 - 45.0 % 10/17/2025 10:59 AM EST [facility] Monocytes Relative 12.9(H) 0.0 - 12.0 % 10/17/2025 10:59 AM EST [facility] Eosinophils Relative 6.4 0.0 - 8.0 % 10/17/2025 10:59 AM EST [facility] Basophils Relative 1.0 0.0 - 1.0 % 10/17/2025 10:59 AM EST [facility] nRBC 0 0 - 0 /100 WBC 10/17/2025 10:59 AM EST [facility] Neutrophils Absolute 1,845 1,520 - 8,640 /uL 10/17/2025 10:59 AM EST [facility] Lymphocytes Absolute 1,423 570 - 4,860 /uL 10/17/2025 10:59 AM EST [facility] Monocytes Absolute 529 0 - 1,296 /uL 10/17/2025 10:59 AM EST [facility] Eosinophils Absolute 262 0 - 864 /uL 10/17/2025 10:59 AM EST [facility] Basophils Absolute 41 0 - 108 /uL 10/17/2025 10:59 AM EST [facility] Whole Blood 10/17/2025 10:1 8 AM EST 10/17/2025 10:46 AM EST [facility] BLOOD ORDERABLES Final Re sult [facility] [address] [facility] [place] [address], [facility] * (ABNORMAL) CBC (10/17/2025 10:18 AM EST) WBC 4.1 3.8 - 10.8 10E3/uL 10/17/2025 10:59 AM EST [facility] RBC 3.32(L) 4.20 - 5.80 10E6/uL 10/17/2025 10:59 AM EST [facility] Hemoglobin 11.2(L) 13.2 - 17.1 g/dL 10/17/2025 10:59 AM EST [facility] Hematocrit 32.9(L) 38.5 - 50.0 % 10/17/2025 10:59 AM EST [facility] MCV 99.1 80.0 - 100.0 fL 10/17/2025 10:59 AM EST [facility] MCH 33.8(H) 27.0 - 33.0 pg 10/17/2025 10:59 AM EST [facility] MCHC 34.1 32.0 - 36.0 g/dL 10/17/2025 10:59 AM EST [facility] RDW 17.3(H) 11.0 - 15.0 % 10/17/2025 10:59 AM EST [facility] Platelets 61(L) 140 - 400 10E3/uL 10/17/2025 10:59 AM EST [facility] MPV 8.2 7.5 - 11.5 fL 10/17/2025 10:59 AM EST [facility] Whole Blood 10/17/2025 10:1 8 AM EST 10/17/2025 10:46 AM EST [facility] BLOOD ORDERABLES Final Re sult [facility] [address] * Toxoplasma gondii Antibody, IgG (10/17/2025 10:18 AM EST) Pathologist [facility] Toxoplasma Gondii IgG <3.0 0.0 - 7.1 IU/mL 10/18/2025 4:54 AM EST [facility] Comment: Negative <7.2 Equivocal 7.2 - 8.7 Positive >8.7 Serum 10/17/2025 10:1 8 AM EST 10/18/2025 5:06 AM EST Narrative [facility] - 10/18/2025 5:06 AM EST PERFORMED AT: [facility] [address] [id number] [employer] VICE PRESIDENT: Mateo Miller, PhD PHONE: [phone] [facility] BLOOD ORDERABLES Final Re sult [facility] [address] [place] [address], [facility] * X-ray Portable Chest (10/17/2025 10:11 [...] ADMINISTRATION., Post-op 09 (Given - Provider: Stacy Zamorano, SILVIO) mycophenolate (CELLCEPT) capsule 500 mg 500 mg, Oral, 2 times daily, First dose on 10/20/25 at 0930, LEVEL 2 HAZARDOUS MEDICATION 09 (Given - Provider: Stacy Zamorano RN)2013 (Given [...] Vail, SILVIO) 0544 (Given - Provider: Anne Vail, SILVIO) pantoprazole (PROTONIX) injection 40 mg (CANCELED) 40 [...] mg, Intravenous, at 200 mL/hr, Once, On Wed10/18/25 at 0900, For 1 dose, POD #1 [...] documented as of this encounter Care Teams Heel Slicker Relationship Specialty Start Date End Date System, Provider Not In PCP - General 09/10/25 10/24/25 documented as of this encounter
--- OUTSIDE RECORDS SUMMARY | 2025-10-17 13:37 | XMS_ITS | Encounter Summary ---
Author Organization Address [address] [place] [address] Care Team Providers Care Certified Industrial Hygienist Name Role Phone System, Provider Not In [...] release of HIV test results or diagnoses. [id number] Reason for Visit * Auth/Cert (Routine) Specialty Diagnoses / Procedures Referred By Gianna t Referred To Contact Diagnoses TRANSPLANT LIVER Procedures TRANSPLANT LIVER [facility] [address] [place] [address] Phone: tel: Referral ID Status Reason Start Date Expiration Date Visits Re quested Visits Authorized [id number] 1 1 Encounter Details Date Type Department Care Team (Late st Contact Info) Description 10/17/2025 1:37 PM EST Anesthesia Event [facility] [address] [place] [address] Oskar Torres MD [address] [place] [address] Ann Blackwell MD [address] [place] [address] Anesthesia Record Procedure Summary Procedure Name Responsible Anesthesiologist Anesthesia Start Time Anesthesia Stop Time TRANSPLANT LIVER (Abdomen) Oskar Torres MD 10/17/25 1337 10/17/25 2245 Events Date Time Event Comment 10/17/2025 1230 1337 An Start 1337 An Start Data 1349 An Induction 1350 An Intubation 1446 Time Out 1716 Provider Handoff Type of Ane sthetic: {Type of Anesthesia:6217447986} Airway: Type: {Airway:0694957937} Difficult BMV / Intubation: {YES/NO WITH YES WILDCARD:92620595} Vascular Access: {Vascular Access:6228729333} Monitors: {Monitor:7366721445} Patient Specific Management Goals: {yes/no :49451966} Outstanding Issues to Address: {Outstanding Issues:1446436485} Disposition: {Disposition:8256252682} 1723 Anhepatic Phase 1745 Quick Note IVC [...] sodium chloride 0.9% 1 00 mL IVPB (Uxyh7Tgx) 6 g cefTRIAXone (ROCEPHIN) 2 g in [...] Per order 10/17/25 0000 by Karen Washington, [employer] 10/18/25 0800 by Angela Tamez RN Peripheral [...] Evelio Jones MD 10/19/25 2248 by Gisela Mneg RN Urethral Catheter 10/17/25; 1355; 16 F [...] living in a alf (including now)? No 10/17/2025 Utilities Answer Date Recorded In the past 12 months has th e [employer], gas, oil, or water company threatened to [...] 12 Temp: 98.2 ??F (36.8 ??C) TempSrc: [place] SpO2: 98% 99% 98% 95% Weight: Height: Last Temperature: 98.2 ??F (36.8 ??C) (10/19/2025 4:00 AM) Complications: There were no known notable events for this encounter. documented in this encounter H&P Notes * Slade Munoz MD - 10/17/2025 11:22 AM EST [facility] DEPARTMENT OF ANESTHESIOLOGY PRE-PROCEDURAL EVALUATION David [...] Food Insecurity (06/15/2025) Received from [facility] Hunger Vital Sign Within the past 12 months, you worried that your food would run out before you got the money to buymore.: Never true Within the past 12 months, the food you bought just didn't last and you didn't have money to get more.: Never true Transportation Needs: No Transportation Needs (06/15/2025) Received from [facility] PRAPARE - Transportation In the past 12 months, has lack of transportation kept you from medical appointments or from getting medications?: No In the past 12 months, has lack of transportation kept you from meetings, work, or from getting things needed for daily living?: No Physical Activity: Inactive (06/15/2025) Received from [facility] Exercise Vital Sign On average, how many days per week do you engage in moderate to strenuous exercise (like a brisk walk)?: 0 days On average, how many minutes do you engage in exercise at this level?: 0 min Stress: No Stress Concern Present (06/15/2025) Received from [facility] [employer] [employer]ational Health - Occupational Stress Questionnaire Do you feel stress - tense, restless, nervous, or anxious, or unable to sleep at night because yourmind is troubled all the time - these days?: Only a little Social Connections: Socially Integrated (06/15/2025) Received from [facility] Social Connection and Isolation Panel In a typical week, how many times do you talk on the phone with family, friends, or neighbors?: More than three times a week How often do you get together with friends or relatives?: More than three times a week How often do you attend confucianist or anabaptism services?: More than 4 times per year Do you belong to any clubs or organizations such as confucianist groups, unions, fraternal [...] agreed to the planabove. Slade Munoz MD, [facility] Department of Anesthesiology [1] Allergies Allergen Reactions [...] Procedure: Insert arterial line Slade Munoz MD, [facility] Department of Anesthesiology * Slade Owusu DO [...] post op PA catheter complications: None Result [facility] Slade Munoz MD IV THERAPY ORDERABLES Final [...] ICU team post op Complications: none Result [facility] Slade Munoz MD PROCEDURE/MINOR SURGICAL ORDERAB LES [...] Admitted) 10/17/25 0700 - 10/18/25 0659 Shift 4753-0154 5428-3704 24 Hour Total 4571-6532 2525-4248 9716-1374 24 Hour Total INTAKE I.V. 8000(80.2) 8000(80.2) [...] in sodium chloride 0.9% 100 mL IVPB (Wfts4Fef)) 100 200 300 Volume (mL) (albumin human bottle 5%) 500 500 Volume (mL) (albumin human bottle 25%) 50 50 Volume (mL) (cefTRIAXone (ROCEPHIN) 2 g in sodium chloride 0.9% 20 mL IV Push) 20 20 Shift Total(mL/kg) 120(1.2) 04256(138.3) 29343(139.5) OUTPUT Urine 1850 1850 Urine 1850 1850 Urine Occurrence 1 x 1 x Blood 46867 55730 Est Blood Loss 93798 49686 Shift Total(mL/kg) 59212(128.8) 22014(128.8) Weight (kg) 99.8 99.8 99.8 99.8 documented [...] in sodium chloride 0.9% 100 mL IVPB (Rkel7Tso) 2 g, Intravenous, at 200 mL/hr, Once, On Wed10/17/25 at 1000, For 1 dose, Begin infusion 20-60 minutes prior to incision Use Dths7Cpt Adapter - Mix Thoroughly Before Administration, Pre-op [...] documented as of this encounter Care Teams Certified Industrial Hygienist Relationship Specialty Start Date End Date System, Provider Not In PCP - General 09/10/25 10/24/25 documented as of this encounter
--- OUTSIDE RECORDS SUMMARY | 2025-10-30 09:00 | XMS_ITS | Encounter Summary ---
Author Organization [facility] Address [address] [place] [address] Care Team Providers Care Manager Community Outreach Name Role Phone Dr. Chris Medel MD [...] release of HIV test results or diagnoses. [id number] Reason for Visit * Reason Comments Liver Transplant Follow-up Encounter Details Date Type Department Care Team (Late st Contact Info) Description 10/30/2025 9:00 AM EST Office Visit [facility] Liver Transplant at [address] [address] [address] Troy MD [address] [place] [address] Buddy Zimmerman MD [address] [place] [address] Encounter for therapeutic drug level monitoring (Primary Dx); Liver replaced by transplant (CMS-HCC); Immunosuppression ([facility]-HCC); Immunosuppressive management encounter following liver transplant ([facility]-HCC) Social History Tobacco Use Types Packs/Day Years [...] the past 12 months has th e [employer], gas, oil, or water [employer] threatened to shut off services in your [...] 8:15 AM EST documented in this encounter Patient Instructions [...] than 349 mg/dL = 5 units lancets [facility] Use to test blood [...] is a follow up visit for David Pop who is a 65 y.o. year old [...] Radiology: Explant pathology: Liver and gall bladder, [place], total hepatectomy with cholecystectomy: Liver: -Cirrhosis, mild [...] to platelets - ID prophylaxis/surveillance: bactrim until 01/15, valcyte until 11/17 (D-/R-). Patient will undergo [...] Nutrition: patient continues close f/u w/ transplant neck band setter. - Bone health: Vit D level to be drawn ~POD#90. - Labs: Labs (CBC w/ diff, renal panel, liver panel, tacro level) twice weekly. Lipid panel, [id number] Vit D level to be drawn at [...] patient on this day. Buddy Zimmerman MD Paperhanger Pipeloom inspector Gastroenterology and Transplant Hepatology [1] Allergies Allergen [...] as of this encounter Care Teams Manager Community Outreach Relationship Specialty Start Date End Date Dr. Chirs Medel MD [address] [place] [address] [place] [address] PCP - General Primary Care 10/25/25 documented as of this encounter
--- OUTSIDE RECORDS SUMMARY | 2025-11-01 07:00 | XMS_ITS | Encounter Summary ---
Author Organization Healthcare Address [address] [place] [address] Care Team Providers Care Professor Of Mathematics Name Role Phone Ruma Hernández FLASHER ADJUSTER Unavailable [phone] Chris Medel MD Primary Care Provider [phone] Encounter Details Date Type Department Care Team (Late st Contact Info) Description 07/05/2025 Results Follow-Up [facility] Transplant Center [address] [place] [phone] Meaghan Le, RN [facility] LIVER [id number] [address] [place] [address] Social History Tobacco Use Types Packs/Day Years [...] week 02/19/2025 How often do you attend [facility] or sikhism services? More than 4 times per year 02/19/2025 Do you belong to any clubs o r organizations such as yazdanism groups, unions, [employer] or athletic groups, or school groups? Yes [...] hard at all 06/15/2025 [facility] - Occupational Stress Questionnaire [...] drink first t luisa in the morning (EYE-RANGELANDS CONSERVATION LABORER) to steady your nerves or to get rid of a hangover? 0 06/14/2025 CAGE Questionnaire Score 0 025 Utilities Answer Date Recorded In the past 12 months has th [employer], gas, oil, or water [employer] threatened to shut off services in your [...] [facility], [address] [place] [address] Suhail Brock MD [address] [facility] [address] [place] [address] 01/24/2026 4:40 PM EDT [facility] [address] [facility], [address] [place] [address] Moustapha Katz MD [address] [facility] [address] [place] [address] documented as of this [...] of this encounter Care Teams Professor Of Mathematics Relationship Specialty [place] [address] PCP - General 03/14/25 Ruma Hernández APRN [address] [place] [address] Referring Physician Gastroenterology 07/30/23 documented as of this encounter
--- OUTSIDE RECORDS SUMMARY | 2025-11-01 07:01 | XMS_ITS | Encounter Summary ---
Author Organization [facility] Address [address] [place] [address] Care Team Providers Care Command Post Craftsman Name Role Phone System, Provider Not In [...] release of HIV test results or diagnoses. [id number] Health Encounter Details Date Type Department Care Team (Late st Contact Info) Description 10/18/2025 Chart Note [facility] Liver Transplant at [address] [address] Giovanna June, RN I introduced myself as inpatient liver bariatric coordinator, explained Social History Tobacco Use Types [...] EST I introduced myself as inpatient liver bariatric coordinator, explained role and provided my contact [...] on 10/19/25 @ 1100. David Pop has MyChart on his phone already, instructions provided for [...] documented as of this encounter Care Teams Command Post Craftsman Relationship Specialty Start Date End Date System, Provider Not In PCP - General 09/10/25 10/24/25 documented as of this encounter
--- OUTSIDE RECORDS SUMMARY | 2025-11-01 07:01 | XMS_ITS | Encounter Summary ---
Author Organization [facility] Address [address] [place] [address] Care Team Providers Care Metal Tank Builder Name Role Phone System, Provider Not [...] release of HIV test results or diagnoses. [id number] Health Encounter Details Date Type Department Care [...] documented as of this encounter Care Teams Metal Tank Builder Relationship Specialty Start Date End Date System, Provider Not In PCP - General 09/10/25 10/24/25 documented as of this encounter
--- OUTSIDE RECORDS SUMMARY | 2025-11-01 07:01 | XMS_ITS | Encounter Summary ---
Author Organization [facility] Address [address] [place] [address] Care Team Providers Care Liquor Blender Name Role Phone Ruma Hernández PATTERN SHOP SUPERVISOR Unavailable [phone] Chris Medel MD Primary Care Provider [phone] Encounter Details Date Type Department Care Team (Late st Contact Info) Description 10/16/2025 Results Follow-Up [facility] Transplant Center [address] [place] [phone] Meaghan Le, RN [facility] LIVER [id number] [address] [place] [address] Social History Tobacco Use Types Packs/Day Years [...] you attend [facility] or yarsanism services? More than 4 times per year 02/19/2025 Do you belong to any clubs o r organizations such as latter day groups, unions, [employer] or athletic groups, or school groups? Yes [...] How often do you attend chur or yarsanism services? More than 4 times [...] at all 06/15/2025 [facility] - Occupational Stress Questionnaire Answer [...] drink first t luisa in the morning (EYE-JACK PRIZER) to steady your nerves or to get rid of a hangover? 0 06/14/2025 CAGE Questionnaire Score 0 025 Utilities Answer Date Recorded In the past 12 months has th e [employer], gas, oil, or water [employer] threatened to shut off services in your [...] Office Building Urology [address] [facility], [address] [place] [address] Suhail Brock MD [address] [facility] [address] [place] [address] 01/24/2026 4:40 PM EDT Office Visit [facility] [address] [facility], [address] [place] [address] Moustapha Katz MD [address] [facility] [address] [place] [address] documented as [...] documented as of this encounter Care Teams Liquor Blender Relationship Specialty [place] [address] PCP - General 03/14/25 Ruma Hernández APRN [address] [place] [address] Referring Physician Gastroenterology 07/30/23 documented as of this encounter
--- OUTSIDE RECORDS SUMMARY | 2025-11-01 07:01 | XMS_ITS | Encounter Summary ---
Author Organization [facility] Address [address] [place] [address] Care Team Providers Care Car Head Liner Installer Name Role Phone System, Provider Not [...] release of HIV test results or diagnoses. [id number] Reason for Visit * Reason Comments Appointment Advice Only Encounter Details Date Type Department Care Team (Late st Contact Info) Description 10/17/2025 Telephone [facility] Transplant at [address] [address] Lore Burgos MA Appointment; Advice [...] any time in the [facility] were you homeless or living in a prison (including now)? No 10/17/2025 Utilities Answer Date [...] in the hospital Please call Stacy at [phone] documented in this encounter Plan of Treatment Not on file documented as of this encounter Visit Diagnoses Not on filedocumented in this encounter Additional Health Concerns Assessment Noted Time PHQ-9 Depression Total Score: 8 09/10/20 11:09 AM EDT documented as of this encounter Care Teams Car Head Liner Installer Relationship Specialty Start Date End Date System, Provider Not In PCP - General 09/10/25 10/24/25 documented as of this encounter
--- OUTSIDE RECORDS SUMMARY | 2025-11-01 07:01 | XMS_ITS | Encounter Summary ---
Author Organization [facility] Address [address] [place] [address] Care Team Providers Care Application Release Manager Name Role Phone System, Provider Not [...] release of HIV test results or diagnoses. [id number] Health Encounter Details Date Type Department Care Team (Late st Contact Info) Description 10/18/2025 Chart Note [facility] Liver Transplant at [address] [address] Rosangela Lewis, RN I have verified that the donor serologies entered in [employer] match the donor Social History Tobacco Use [...] verified that the donor serologies entered in [employer] match the donor serologies that are listed in [facility]. documented in this encounter Plan of Treatment Not on file documented as of this encounter Visit Diagnoses Not on filedocumented in this encounter Additional Health Concerns Assessment Noted Time PHQ-9 Depression Total Score: 8 09/10/20 11:09 AM EDT documented as of this encounter Care Teams Application Release Manager Relationship Specialty Start Date End Date System, Provider Not In PCP - General 09/10/25 10/24/25 documented as of this encounter
--- OUTSIDE RECORDS SUMMARY | 2025-11-01 07:01 | XMS_ITS | Encounter Summary ---
Author Organization [facility] Address [address] [place] [address] Care Team Providers Care Specialty Person Name Role Phone System, Provider Not In [...] release of HIV test results or diagnoses. [id number] Reason for Visit * Reason Comments Transitions Of Care Encounter Details Date Type Department Care Team (Late st Contact Info) Description 10/18/2025 Pharmacy Services [facility] at [address] [address] Dory Hannah RPh Social History Tobacco Use [...] this encounter Progress Notes * Dory Hannah, [facility] - 10/18/2025 8:35 AM EST Transitions of Care Patient's prescriptions were sent to [facility] for a Transplant benefits review. David Pop received a Liver Transplant on 10/17/25 at [facility]. The patient's discharge medications were sent to [facility] for anticipated dischargeof 10/22/25. The patient has a [employer] commercial insurance plan to cover prescriptions. Currently, [...] in any of the prescriptions sent to [facility]. Medication Discharge Service will deliver all medications that they are able to fill to patient's bedside prior to discharge from hospital. Transplant team will provide education to the patient priorto discharge from the hospital. The patient has been referred to the [facility] Transplant Team. The patient should visit Medication Access for assistance if problems arise with the prescriptions. If questions arise regarding discharge medications, please call [phone]. Rosario Hannah PharmD Transitions of Care Pharmacist [phone] documented in this encounter Plan of Treatment Not on file documented as of this encounter Visit Diagnoses Not on filedocumented in this encounter Additional Health Concerns Assessment Noted Time PHQ-9 Depression Total Score: 8 09/10/20 11:09 AM EDT documented as of this encounter Care Teams Specialty Person Relationship Specialty Start Date End Date System, Provider Not In PCP - General 09/10/25 10/24/25 documented as of this encounter
--- OUTSIDE RECORDS SUMMARY | 2025-11-01 07:01 | XMS_ITS | Encounter Summary ---
Author Organization [facility] Address [address] [place] [address] Care Team Providers Care Inside Sales Executive Name Role Phone Ruma Hernández SLATE ROOFER Unavailable [phone] Chris Medel MD Primary Care Provider [phone] Reason for Visit * Reason Onset Date Comments HCN - Patient Message 10/15/2025 Encounter Details Date Type Department Care Team ([facility] Contact Info) Description 10/15/2025 Telephone [facility], [facility] Mineral Metabolism [address] [facility], [address] [place] [address] Moustapha Katz MD [address] [facility] [address] [place] [address] HCN - Patient Message Social [...] do you attend [facility] or adventism services? More than 4 times per year 02/19/2025 Do you belong to any clubs o r organizations such as sabianist groups, unions, [employer] or athletic groups, or school groups? Yes [...] week 06/15/2025 How often do you attend [facility] or adventism services? More than 4 times per year 06/15/2025 Do you belong to any clubs o r organizations such as sabianist groups, unions, [employer] or athletic groups, or school groups? Yes [...] at all 06/15/2025 [facility] [employer] [facility] - Occupational Stress [...] drink first t luisa in the morning (EYE-CLINICAL SYSTEMS EDUCATOR) to steady your nerves or to get rid of a hangover? 0 06/14/2025 CAGE Questionnaire Score 0 025 Utilities Answer Date Recorded In the past 12 months has th e [employer], gas, oil, or water company threatened to [...] r/s his 10/18 visit. Best contact number: [phone] (mobile) Optimal time of day to reach caller: ANYTIME Additional comments/information from caller: Note: Please do not reply to this message. Follow-up communication and further actions as a result of this message need to be communicated with the patient directly, if the patient is not active onMyChart. If the patient is active on MyChart, they will receive notification of the communication/outcome via VR1. documented in this encounter Plan of Treatment Upcoming Encounters Date Type Department Care Team (Late st Contact Info) Description 11/27/2025 3:45 PM EST Office Visit Medical Office Building Urology [address] [facility], [address] [place] [address] Suhail Brock MD [address] [place] [address] 01/24/2026 4:40 PM EDT Office Visit [facility] [address] [facility], [address] [place] [address] Moustapha Katz MD [address] [facility] [address] [place] [address] documented as [...] of this encounter Care Teams Inside Sales Executive Relationship Specialty [place] [address] PCP - General 03/14/25 Ruma Hernández APRN [address] [facility] [address] [place] [address] Referring Physician Gastroenterology 07/30/23 documented as of this encounter
--- OUTSIDE RECORDS SUMMARY | 2025-11-01 07:01 | XMS_ITS | Encounter Summary ---
Author Organization [facility] Address [address] [place] [address] Care Team Providers Care Batting Machine Operator Name Role Phone Ruma Hernández SCRIPT EDITOR Unavailable Chris Medel MD Primary Care Provider [phone] Encounter Details Date Type Department Care Team (Late st Contact Info) Description 10/09/2025 Results Follow-Up [facility] Trans[facility] Center [address] [place] [address] Meaghan Le, RN [facility] LIVER [id number] [address] [place] [address] Social History Tobacco Use Types Packs/Day Years [...] How often do you attend [facility] or quaker services? More than 4 times per year 02/19/2025 Do you belong to any clubs o r organizations such as baptist groups, unions, [employer] or athletic groups, or school groups? Yes [...] at all 06/15/2025 [facility] - Occupational Stress Questionnaire Answer [...] drink first t luisa in the morning (EYE-GENERAL INTERN) to steady your nerves or to get rid of a hangover? 0 06/14/2025 CAGE Questionnaire Score 0 025 Utilities Answer Date Recorded In the past 12 months has th e [employer], gas, oil, or water [employer] threatened to shut off services in your [...] [address] [facility], [address] [place] [address] Suhail Brock MD [address] [place] [address] 01/24/2026 4:40 PM EDT Office Visit [facility] [address] [facility], [address] [place] [address] Moustapha Katz MD [address] [facility] [address] [place] [address] documented as of this encounter [...] documented as of this encounter Care Teams Batting Machine Operator Relationship Specialty [place] [address] PCP - General 03/14/25 Ruma Hernández APRN [address] [facility] [address] [place], [place] [id number] Referring Physician Gastroenterology 07/30/23 documented as of this encounter
--- OUTSIDE RECORDS SUMMARY | 2025-11-01 07:01 | XMS_ITS | Clinical Summary ---
Author Organization [facility] Address [address] [place] [id number] Care Team Providers Care Database Dba Name Role Phone Dr. Chris Medel MD [...] therelease of HIV test results or diagnoses. [id number] Allerg[facility] Active Allergy Reactions Criticality Noted Date [...] mL 2 5 3:31 PM EST 10/22/20 Active NIFEdipine (PROCARDIA-XL) 30 MG (OSM) 24 hr tablet Take 1 tablet (30 mg total) by mouth daily. 30 tablet 5 3:31 PM EST 10/22/20 Active tacrolimus (PROGRAF) 1 MG capsule Take 5 capsules (5 mg total) by mouth 2 times a day. 600 capsule 5 5 3:31 PM EST 10/22/20 25 Active methocarbamoL (ROBAXIN) 500 MG tablet Take 1 tablet (500 mg total) by mouth 3 times a day as needed. 10/30/20 Active XIFAXAN 550 mg Tab tablet Take [...] (150 mg total) by mouth daily. 03/13/20 24 025 Discontinued(St op Taking at Discharge) calcitRIOL [...] daily. 120 tablet 2 10/18/20 25 Discontinued methocarbamoL (ROBAXIN) 500 MG tablet Take 1 tablet (500 mg total) by mouth 3 times a day. 90 tablet 5 3:31 PM EST 10/18/20 25 025 Discontinued insulin lispro 100 unit/mL InPn Administer [...] 2 times a day. 60 tablet 10/18/20 25 Discontinued(St op Taking at Discharge) oxyCODONE (ROXICODONE) [...] 25 025 Discontinued(St op Taking at Discharge) potassium chloride (KLOR-CON) 10 MEQ CR tablet Take 1 tablet (10 mEq total) by mouth daily. 7 tablet 5 3:31 PM EST 10/22/20 025 Discontinued sod phos di, mono-K phos mono (PHOSPHORUS) 250 mg Tab tablet Take 250 mg by mouth 2 times a day. 14 tablet 5 3:31 PM EST 10/22/20 25 025 Discontinued furosemide (LASIX) 40 MG tablet Take 1 tablet (40 mg total) by mouth daily. 7 tablet 3:31 PM EST 10/22/20 25 025 Discontinued Active Problems Problem Noted [...] Encounters Date Type Department Care Team Description 10/31/2025 Telephone [facility] Liver Transplant at [address] [place] [address] Ruma Benjamin, RN Results 10/30/2025 9:00 AM EST Office Visit [facility] Liver Transplant at [address] [place] [address] Lane Troy MD Myer, Adam, MD Encounter for therapeutic drug level monitoring (Primary Dx); Liver replaced by transplant (CMS-HCC); Immunosuppression (CMS-HCC); Immunosuppressive management encounter following liver transplant ([facility]-HCC) 10/30/2025 Social Work [facility] Liver Transplant at [address] [place] [address] Michelle Ho, CATERING SERVICE MANAGER, DELIVERY LEAD 10/30/2025 Chart Note [facility] Liver Transplant at [address] [place] [phone] Pita Pike MA FK pending [facility] 10/30/2025 Nutrition [facility] Kidney Transplant at [address] [phone] Oskar Arango, RD 10/25/2025 Telephone [facility] Liver Transplant at [address] [phone] Giovanna June, RN 10/25/2025 Telephone [facility] Liver Transplant at [address] [address] Pita Pike MA 10/25/2025 Orders Only [facility] Liver Transplant at [address] [address] Felice Nugent III, MD 10/24/2025 Chart Note [facility] Liver Transplant at [address] [address] Pita Pike MA FK pend [facility] 10/24/2025 Telephone [facility] Liver Transplant at [address] [phone] Linn Tiwari MA 10/23/2025 Orders Only [facility] Liver Transplant at [address] [phone] Giovanna June, RN Liver replaced by transplant (CMS-HCC) (Primary Dx) 10/22/2025 Chart Note [facility] Liver Transplant at [address] [phone] Cori Womack, JudyD Liver Transplant Pharmacy Discharge Note 10/22/2025 Orders Only [facility] Liver Transplant [place] [address] [place] [phone] Ruma Benjamin, SILVIO S/P liver transplant ([facility]) (Primary Dx); Immunosuppression ([facility]-HCC) 10/22/2025 Orders Only [facility] Liver Transplant at [address] [place] [phone] Felice Nugent III, MD Liver replaced by transplant ([facility]-HCC) (Primary Dx); Immunosuppressive management encounter following liver transplant ([facility]) 10/19/2025 Education Chart Note [facility] Liver Transplant at [address] [phone] Giovanna June, RN 10/18/2025 Chart Note [facility] Kidney Transplant at [address] [phone] Ailin Wells Txp Patient Called In 10/18/2025 Pharmacy Services [facility] at [address] [place] [phone] Dory Hannah RPh 10/18/2025 Chart Note [facility] Liver Transplant at [address] [place] [address] Giovanna June, RN I introduced myself as inpatient liver home health care coordinator, explained 10/18/2025 Chart Note [facility] Liver Transplant at [address] [place] [address] Rosangela Lewis, RN I have verified that the donor serologies entered in Epic match the donor 10/17/2025 1:37 PM EST Anesthesia Event [facility] [address] [place] [address] Oskar Torres MD Edwards, Anna, MD 10/17/2025 12:00 PM EST - 10/17/2025 8:12 PM EST Surgery [facility] [address] [place] [address] Vani Drew MD TRANSPLANT LIVER 10/17/2025 8:52 AM EST - 10/22/2025 4:06 PM EST Hospital Encounter [facility] SICU [address] [place] [address] Vani Drew MD S/P liver transplant (CMS-HCC) (Primary Dx); End stage liver disease (CMS-HCC); Immunosuppression (CMS-HCC) Discharge Disposition: Home WITH Home Health Care Services 10/17/2025 Chart Note [facility] Liver Transplant at [address] [phone] Maeve Hubbard RN Per Dr Drew, patient received whole liver with no extra vessels on 10/17/2025 Telephone [facility] Kidney Transplant at [address] [phone] Lore Burgos MA Appointment; Advice Only 10/17/2025 Travel 10/17/2025 Telephone [facility] Liver Transplant at [address] [phone] Joslyn Faulkner, SILVIO 10/03/2025 Telephone [facility] Liver Transplant at [address] [phone] Pb Sy, RN 10/03/2025 Chart Note [facility] Kidney Transplant at [address] [phone] Ailin Wells Organ: Liver 10/03/2025 Telephone [facility] Liver Transplant at [address] [phone] Pb Sy, RN Appointment 09/25/2025 Telephone [facility] Liver Transplant at [address] [place] [address] Chapito Alcantar, SILVIO 09/25/2025 Chart Note [facility] Liver Transplant at [address] [place] [address] Chapito Alcantar, RN UNOS VERIFICATION CHECK FORM 09/25/2025 Chart Note [facility] Kidney Transplant at [address] [place] [address] Ailin Wells Authorization for listing 09/24/2025 1:00 PM EST Office Visit [facility] Liver Transplant at [address] [place] [address] Nigel Reaves MD Esophageal varices without bleeding, unspecified esophageal varices type (CMS-HCC) (Primary Dx); Alcoholic cirrhosis of liver with ascites (CMS-HCC); Hepatic encephalopathy (CMS-HCC); Pre-transplant evaluation for chronic liver disease; Ascites due to alcoholic cirrhosis (CMS-HCC) 09/24/2025 Orders Only [facility] Liver Transplant at [address] [place] [address] Chapito Alcantar, RN Alcoholic cirrhosis of liver with ascites (CMS-HCC) (Primary Dx); Pre-transplant evaluation for chronic liver disease 09/24/2025 Chart Note [facility] Kidney Transplant at [address] [place] [address] Ailin Wells Called local office again to get status of listing auth request. Spoke to 09/21/2025 Refill [facility] at [facility] [address] [facility] [address] [place] [address] Arturo Gibson, SILVIO 09/20/2025 Telephone [facility] Liver Transplant at [address] [place] [address] Cori Dover MA 09/20/2025 Chart Note [facility] Liver Transplant at [address] [place] [phone] Chapito Alcantar, RN Spoke with patient's spouse and updated her on current bed situation. 09/19/2025 Telephone [facility] Liver Transplant at [address] [place] [address] Chapito Alcantar, RN 09/18/[address] [facility] [address] [place] [address] Delaney Bahena, RXT 09/17/2025 Refill [facility] at [facility] [address] [phone] Johnny Dubois RN 09/17/2025 Telephone [facility] at [facility] 200 [facility] [address] [place] [phone] Navi Sims MD 09/13/2025 Chart Note [facility] Liver Transplant at [address] [phone] Chapito Alcantar, RN Multi-disciplinary Hepatobiliary Case Conference Review: 09/11/2025 Telephone [facility] Liver Transplant at [address] [place] [address] Chapito Alcantar, RN 09/11/2025 Chart Note [facility] Kidney Transplant at [address] [place] [address] Ailin Wells Faxed Clinical for Listing/Txp Auth 09/11/2025 Telephone [facility] Liver Transplant at [address] [place] [address] Chapito Alcantar, SILVIO 09/10/2025 4:35 PM EDT [facility] [address] [place] [phone] Buddy Zimmerman MD Alcoholic cirrhosis of liver with ascites (CMS-HCC); Pre-transplant evaluation for chronic liver disease 09/10/2025 2:00 PM EDT Office Visit [facility] Liver Transplant at [address] [phone] Unknown, Attending Provider Navi Sims MD Pre-transplant evaluation for chronic liver disease (Primary Dx); Encounter for pre-transplant evaluation for liver transplant 09/10/2025 1:30 PM EDT Office Visit [facility] Liver Transplant at [address] [place] [address] Lane Troy MD Alcoholic cirrhosis of liver with ascites (CMS-HCC) (Primary Dx); Pre-transplant evaluation for chronic liver disease 09/10/2025 1:00 PM EDT Office Visit [facility] Liver Transplant at [address] [place] [address] Buddy Zimmerman MD Pre-transplant evaluation for chronic liver disease (Primary Dx); Alcoholic cirrhosis of liver with ascites (CMS-HCC) 09/10/2025 12:00 PM EDT Office Visit [facility] Anesthesia Transplant at [address] [place] [address] Unknown, Attending Provider Setfan Gonzalez MD Pre-transplant evaluation for chronic liver disease (Primary Dx) 09/10/2025 10:03 AM EDT - 09/10/2025 11:59 PM EDT Hospital Encounter [facility] [address] [place] [phone] Nigel Reaves MD Pre-transplant evaluation for chronic liver disease Discharge Disposition: Home or Self Care WITHOUT Home Care Services 09/10/2025 Social Work [facility] Liver Transplant at [address] [place] [phone] Michelle Ho, CATERING SERVICE MANAGER, DELIVERY LEAD 09/10/2025 Nutrition [facility] Kidney Transplant at [address] [place] [address] Oskar Arango, RD 09/10/2025 Chart Note [facility] Liver Transplant at [address] [phone] Chapito Alcantar, SILVIO Alcoholic cirrhosis of liver with ascites (CMS-HCC) (Primary Dx); Pre-transplant evaluation for chronic liver disease 09/08/2025 8:34 PM EDT - 09/08/2025 11:59 PM EDT Hospital Encounter [facility] Radiology [address] [place] [phone] System, Provider Not In Discharge Disposition: Home or Self Care WITHOUT Home Care Services 09/08/2025 8:34 PM EDT - 09/08/2025 11:59 PM EDT Hospital Encounter [facility]iology [address] [place] [phone] System, Provider Not In Discharge Disposition: Home or Self Care WITHOUT Home Care Services 09/08/2025 8:31 PM EDT - 09/08/2025 8:33 PM EDT Hospital Encounter [facility] [address] [place] [address] System, Provider Not In Discharge Disposition: Home or Self Care WITHOUT Home Care Services 09/08/2025 8:31 PM EDT - 09/08/2025 8:33 PM EDT Hospital Encounter [facility] [address] [place] [address] System, Provider Not In Discharge Disposition: Home or Self Care WITHOUT Home Care Services 09/05/2025 Telephone [facility] Liver Transplant at [address] [place] [address] Chapito Alcantar, RN 09/05/2025 Telephone [facility] Liver Transplant at [address] [phone] Cori Dover MA 09/05/2025 Abstract [facility] Liver Transplant at [address] [place] [address] Chapito Alcantar, SILVIO Alcoholic cirrhosis of liver with ascites (CMS-HCC) (Primary Dx); Ascites due to alcoholic cirrhosis (CMS-HCC); Hepatic encephalopathy (CMS-HCC); Esophageal varices without bleeding, unspecified esophageal varices type (CMS-HCC); Pre-transplant evaluation for chronic liver disease 08/13/2025 Telephone [facility] Liver Transplant at [address] [place] [address] Cori Dover MA 08/13/2025 Telephone [facility] Liver Transplant at [address] [phone] Cori Dover MA 08/13/2025 Orders Only [facility] Liver Transplant at [address] [place] [address] Chapito Alcantar, SILVIO Pre-transplant evaluation for chronic liver disease (Primary Dx) 08/13/2025 Chart Note [facility] Kidney Transplant at [address] [place] [address] Ailin Wells Patient is financially cleared for liver transplant evaluation 08/02/2025 Chart Note [facility] Liver Transplant at [address] [place] [address] Cori oDver MA Liver transplant referral entered. from Last 3 Months Immunizations Immunization Administration [...] Mass Index 29.8 10/30/2025 8:15 AM EST Plan of Treatment Health Maintenance Due Date Last Done Comments Abnormal Colonoscopy Follow Up 1961 Immunization: COVID-19 (#1) 1961 Immunization: Hepatitis A (1 of 2 - Risk 2-dose series) 02/02/1980 Immunization: Pneumococcal (1 of 2 - PCV) 02/02/1980 Immunization: Zoster (1 of 2) 02/02/1980 Cologuard (FIT-DNA) 2006 Colonoscopy 2006 Colorectal Cancer Screening (MyChart) 2006 Stool Testing (gFOBT) 2006 Immunization: RSV (Adult) (1 - Risk 50-74 years 1-dose series) 2011 Immunization: Influenza (MyChart) (#1) 2025 Depression Screening 09/10/2026 09/10/2025, 09/10/20 Immunization: DTaP/Tdap/Td ( 2 - Td or Tdap) 09/10/2035 09/10/2025 HIV Screening Completed 10/17/2025 Hepatitis C Screening (MyChart) Completed Immunization: HPV (No Doses Required) Completed Medical Devices Implanted Type Area Bundle Person Device Identifier Shelf Expiration Date Model / Serial / Lot Liver Implanted:Qty: 1 on 10/17/2025 by Vani Drew MD at [facility] [id number] / [id number] / [id number] Procedures Procedure Name Priority Date/Time Associated Diagnosis Comments TACROLIMUS LEVEL Routine 10/30/2025 8:07 AM EST S/P liver transplant (CMS-HCC) Immunosuppression (CMS-HCC) DIFFERENTIAL Routine 10/30/2025 8:07 AM EST S/P liver transplant (CMS-HCC) Immunosuppression (CMS-HCC) CBC Routine 10/30/2025 8:07 AM EST S/P liver transplant (CMS-HCC) Immunosuppression (CMS-HCC) RENAL FUNCTION PANEL W/EGFR Routine 10/30/2025 8:07 AM EST S/P liver transplant (CMS-HCC) Immunosuppression (CMS-HCC) HEPATIC FUNCTION PANEL Routine 8:07 AM EST S/P liver transplant (CMS-HCC) Immunosuppression (CMS-HCC) RENAL FUNCTION PANEL W/O EGFR Routine 10/29/2025 7:49 AM EST CBC AND DIFFERENTIAL Routine 10/29/2025 7:49 AM EST HEPATIC FUNCTION PANEL Routine 7:49 AM EST HOX - HLA ANTIBODY-DETAILED REPORT Routine 10/25/2025 11:31 AM EST TACROLIMUS LEVEL Routine 10/24/2025 7:23 AM EST RENAL FUNCTION PANEL W/O EGFR Routine 10/24/2025 7:23 AM EST HEPATIC FUNCTION PANEL Routine 5 7:23 AM EST CBC AND DIFFERENTIAL Routine 10/24/2025 7:23 AM EST CBC AND DIFFERENTIAL Routine 10/24/2025 7:23 AM EST US DUPLEX [id number] COMPLETE STAT 10/22/2025 10:24 AM EST US [...] Routine 10/18/2025 10:29 AM EST US DUPLEX [id number] COMPLETE STAT 10/18/2025 9:35 AM EST US [...] Months Results * (ABNORMAL) Hepatic Function Panel (10/30/2025 8:07 AM EST) Only the most recent of17 resultswithin the time period is included. Total Bilirubin 2.4(H) 0.0 - 1.5 mg/dL 10/30/2025 10:12 AM EST [email or web address] Bilirubin, Direct 1.36(H) 0.00 - 0.40 mg/dL 10/30/2025 10:12 AM EST [email or web address] AST 39 13 - 39 U/L 10/30/2025 10:12 AM EST [facility] ALT 88(H) 7 - 52 U/L 10/30/2025 10:12 AM EST [facility] Alkaline Phosphatase 281(H) 36 - 125 U/L 10/30/2025 10:12 AM EST [facility] Total Protein 5.9(L) 6.4 - 8.9 g/dL 10/30/2025 10:12 AM EST [facility] Albumin 2.9(L) 3.5 - 5.7 g/dL 10/30/2025 10:12 AM EST [facility] Bilirubin, Indirect 1.04 0.00 - 1.10 mg/dL 10/30/2025 10:12 AM EST [facility] Plasma 10/30/2025 8:07 AM EST 10/30/2025 9:12 AM EST Narrative [facility] - 10/30/2025 10:12 AM EST Standing liver transplant labs. Please fax results to [phone]. Call critical results to [phone]. us Felice Nugent III, MD LAB BLOOD ORDERABLE S Final Result [facility] [address] * (ABNORMAL) Renal Function Panel w/EGFR (10/30/2025 8:07 AM EST) Only the most recent of12 resultswithin the time period is included. Sodium 138 133 - 146 mmol/L 10/30/2025 10:12 AM EST [facility] Potassium 4.5 3.5 - 5.3 mmol/L 10/30/2025 10:12 AM EST [facility] Chloride 101 98 - 110 mmol/L 10/30/2025 10:12 AM EST [facility] CO2 29 21 - 33 mmol/L 10/30/2025 10:12 AM EST [facility] Comment:High lactate dehydro genase concentrations in patient samples may cause falsely increased bicarbonate results. If markedly elevated LDH is observed or suspected, please assess results in conjunction with patient`s clinical presentation. In cases of discrepant results, consider evaluating CO2 in with a blood gas order. Anion Gap 8 3 - 16 mmol/L 10/30/2025 10:12 AM EST [facility] BUN 17 7 - 25 mg/dL 10/30/2025 10:12 AM EST [facility] Creatinine 0.90 0.60 - 1.30 mg/dL 10/30/2025 10:12 AM EST [facility] Glucose 124(H) 70 - 100 mg/dL 10/30/2025 10:12 AM EST [facility] Calcium 7.9(L) 8.6 - 10.3 mg/dL 10/30/2025 10:12 AM EST [facility] Phosphorus 3.9 2.1 - 4.7 mg/dL 10/30/2025 10:12 AM EST [facility] Albumin 2.9(L) 3.5 - 5.7 g/dL 10/30/2025 10:12 AM EST [facility] Osmolality, Calculated 289 278 - 305 mOsm/kg 10/30/2025 10:12 AM EST [facility] EGFR >90 10/30/2025 10:12 AM EST [facility] Comment: As of [...] renal disease. For additional information: [email or web address] Plasma 10/30/2025 8:07 AM EST 10/30/2025 9:12 AM EST Narrative [facility] - 10/30/2025 10:12 AM EST Standing liver transplant labs. Please fax results to [phone]. Call critical results to [phone]. us Felice Nugent III, MD LAB BLOOD ORDERABLE S Final Result [facility] [address] [place] [address], [facility] * Tacrolimus level (10/30/2025 8:07 AM EST) Only the most recent of6 resultswithin the time period is included. Pathologist [facility] Tacrolimus (LC-MS) 13.0 3.0 - 15.0 ng/mL 10/30/2025 3:02 PM EST [facility] Comment:Performed via liquid chromatography tandem mass spectrometry. Detection limit: 1 ng/mL. Individual target concentrations may vary due to target organ and time after transplant. This test has been developed and its performance characteristics determined by [facility] access hospital which is certified under the Clinical Laboratory Improvement Amendment of 1988 (CLIA-88) to perform high complexity testing. The test has not been cleared or approved by the US Food and Drug Administration (FDA). The FDA has determined that such clearance is not necessary. The test should be used for clinical purposes and is not regarded as investigational. Whole Blood 10/30/2025 8:07 AM EST 10/30/2025 9:12 AM EST Narrative [facility] - 10/30/2025 3:02 PM EST Standing liver transplant labs. Please fax results to [phone]. Call critical results to [phone]. us Felice Nugent III, MD LAB BLOOD ORDERABLE S Final Result [facility] [address] [id number], [facility] * (ABNORMAL) Differential (10/30/2025 8:07 AM EST) Only the most recent of2 resultswithin the time period is included. Pathologist [facility] Neutrophils Relative 79.6 40.0 - 80.0 % 10/30/2025 9:26 AM EST [facility] Lymphocytes Relative 6.3(L) 15.0 - 45.0 % 10/30/2025 9:26 AM EST [facility] Monocytes Relative 9.8 0.0 - 12.0 % 10/30/2025 9:26 AM EST [facility] Eosinophils Relative 3.4 0.0 - 8.0 % 10/30/2025 9:26 AM EST [facility] Basophils Relative 0.9 0.0 - 1.0 % 10/30/2025 9:26 AM EST [facility] nRBC 0 0 - 0 /100 WBC 10/30/2025 9:26 AM EST [facility] Neutrophils Absolute 6,209 1,520 - 8,640 /uL 10/30/2025 9:26 AM EST [facility] Lymphocytes Absolute 491(L) 570 - 4,860 /uL 10/30/2025 9:26 AM EST [facility] Monocytes Absolute 764 0 - 1,296 /uL 10/30/2025 9:26 AM EST [facility] Eosinophils Absolute 265 0 - 864 /uL 10/30/2025 9:26 AM EST [facility] Basophils Absolute 70 0 - 108 /uL 10/30/2025 9:26 AM EST [facility] Whole Blood 10/30/2025 8:07 AM EST 10/30/2025 9:11 AM EST Narrative [facility] - 10/30/2025 9:26 AM EST Standing liver transplant labs. Please fax results to [phone]. Call critical results to [phone]. us Felice Nugent III, MD LAB BLOOD ORDERABLE S Final Result [facility] [address] [id number], [facility] * (ABNORMAL) CBC (10/30/2025 8:07 AM EST) Only the most recent of16 resultswithin the time period is included. WBC 7.8 3.8 - 10.8 10E3/uL 10/30/2025 9:26 AM EST [facility] RBC 2.67(L) 4.20 - 5.80 10E6/uL 10/30/2025 9:26 AM EST [facility] Hemoglobin 10.1(L) 13.2 - 17.1 g/dL 10/30/2025 9:26 AM EST [facility] Hematocrit 27.2(L) 38.5 - 50.0 % 10/30/2025 9:26 AM EST [facility] [facility] MCV 101.7(H) 80.0 - 100.0 fL 10/30/2025 9:26 AM EST [facility] MCH 37.8(H) 27.0 - 33.0 pg 10/30/2025 9:26 AM EST [facility] MCHC 37.1(H) 32.0 - 36.0 g/dL 10/30/2025 9:26 AM EST [facility] RDW 17.4(H) 11.0 - 15.0 % 10/30/2025 9:26 AM EST [facility] Platelets 159 140 - 400 10E3/uL 10/30/2025 9:26 AM EST [facility] MPV 8.5 7.5 - 11.5 fL 10/30/2025 9:26 AM EST [facility] Whole Blood 10/30/2025 8:07 AM EST 10/30/2025 9:11 AM EST Narrative [facility] - 10/30/2025 9:26 AM EST Standing liver transplant labs. Please fax results to [phone]. Call critical results to [phone]. us Felice Nugent III, MD LAB BLOOD ORDERABLE S Final Result [facility] [address] [place] [address], [facility] * (ABNORMAL) CBC and differential (10/29/2025 7:49 AM EST) Only the most recent of3 resultswithin the time period is included. Hemoglobin 10.1(A) 13.5 - 17.5 g/dL Hematocrit 28.9(A) 41 - 53 % RDW 19.2(A) 11.5 - 14.5 % Lymphocytes Absolute 0.9 / L Monocytes Absolute 1.1 / L Eosinophils Absolute 0.5 / L Basophils Absolute 0.1 / L Neutrophils Relative 73.4 46 - 78 % Lymphocytes Relative 8.6(A) 18 - 52 % Monocytes Relative 10.2(A) 3 - 10 % Eosinophils Relative 4.4 0 - 6 % Basophils Relative 0.9 0 - 3 % Neutrophils Absolute 7.6 / L MCH 35.8(A) 26.0 - 34.0 pg MCHC 34.9 30 - 37 g/dL MCV 102.5 82.0 - 108.0 fL Platelets 145 K/ L RBC 2.82(A) 4.50 - 5.90 10^6/ L WBC 10.3 10^3/mL Blood Historical Provider LAB BLOOD ORDERABLES Nadia l Result * (ABNORMAL) Renal Function Panel w/o EGFR (10/29/2025 7:49 AM EST) Only the most recent of3 resultswithin the time period is included. Glucose 107 BUN 13 CO2 29(A) 13 - 22 mmol/L Creatinine 0.90 Potassium 3.9 Sodium 137 Chloride 102 Phosphorus 3.7 2.5 - 4.9 mg/dL Calcium 7.6 EGFR 85 mg/dL Albumin 2.8(A) 3.5 - 5.0 g/dL Blood Historical Provider LAB BLOOD ORDERABLES Nadia l Result * Hox - HLA Antibody-Detailed Report (10/25/2025 11:31 AM EST) 10/25/2025 11:3 1 AM EST Felice Nugent III, MD LAB BLOOD ORDERABLE S Final Result Performing Organization Address City/State/[facility] Co de Phone Number [facility] [address] [place] [address] * US Duplex [id number]-Puh-[id number] Comp (10/22/2025 10:24 AM EST) Only the [...] EXAM: US ABDOMEN COMPLETE EXAM: US DUPLEX [id number] COMPLETE INDICATION: Post-op liver transplant DATE: 10/22/2025 [...] EXAM: US ABDOMEN COMPLETE EXAM: US DUPLEX [id number] COMPLETE INDICATION: Post-op liver transplant DATE: 10/22/2025 [...] 12:02 PM EST us Jesus Lomeli MD [facility] [place] ORDERABLES Final Resul t * US [...] EXAM: US ABDOMEN COMPLETE EXAM: US DUPLEX [id number] COMPLETE INDICATION: Post-op liver transplant DATE: 10/22/2025 [...] EXAM: US ABDOMEN COMPLETE EXAM: US DUPLEX [id number] COMPLETE INDICATION: Post-op liver transplant DATE: 10/22/2025 [...] 12:02 PM EST us Jesus Lomeli MD [facility] ORDERABLES Final Resul t * POC Glucose Monitoring Device (10/22/2025 10:23 AM EST) Only the most recent of38 resultswithin the time period is included. POC Glucose Monitoring Device 96 70 - 100 mg/dL 10/22/2025 10:24 AM EST [email or web address] LAB Blood 10/22/2025 10:2 3 AM EST 10/22/2025 10:23 AM EST us Vani Drew MD POINT OF CARE TEST ORDERABLE S Final Result [facility] [address] [facility]. [address] * Phosphorus (10/22/2025 5:28 AM EST) Phosphorus 2.3 2.1 - 4.7 mg/dL 10/22/2025 6:20 AM EST [facility] Plasma 10/22/2025 5:28 AM EST 10/22/2025 5:42 AM EST Aspen Parr MD LAB BLOOD ORDERABLES Final Resul t Performing Organization Address City/[facility] Co de Phone Number [facility] [address] [facility]. [address] * Magnesium (10/22/2025 5:28 AM EST) Only the most recent of11 resultswithin the time period is included. Magnesium 1.7 1.5 - 2.5 mg/dL 10/22/2025 6:20 AM EST [facility] Plasma 10/22/2025 5:28 AM EST 10/22/2025 5:42 AM EST Aspen Parr MD LAB BLOOD ORDERABLES Final Resul t Performing Organization Address [facility] Co de Phone Number [facility] [address] [facility]. [address] * (ABNORMAL) Basic metabolic panel (10/22/2025 5:28 AM EST) Only the most recent of2 resultswithin the time period is included. Sodium 138 133 - 146 mmol/L 10/22/2025 6:20 AM EST [facility] Potassium 3.2(L) 3.5 - 5.3 mmol/L 10/22/2025 6:20 AM EST [facility] Chloride 107 98 - 110 mmol/L 10/22/2025 6:20 AM EST [facility] CO2 25 21 - 33 mmol/L 10/22/2025 6:20 AM EST [facility] Comment:High lactate dehydro genase concentrations in patient samples may cause falsely increased bicarbonate results. If markedly elevated LDH is observed or suspected, please assess results in conjunction with patient`s clinical presentation. In cases of discrepant results, consider evaluating CO2 in with a blood gas order. Anion Gap 6 3 - 16 mmol/L 10/22/2025 6:20 AM EST [facility] BUN 25 7 - 25 mg/dL 10/22/2025 6:20 AM EST [facility] Creatinine 0.81 0.60 - 1.30 mg/dL 10/22/2025 6:20 AM EST [facility] Glucose 100 70 - 100 mg/dL 10/22/2025 6:20 AM EST [facility] Calcium 6.8(L) 8.6 - 10.3 mg/dL 10/22/2025 6:20 AM EST [facility] Osmolality, Calculated 290 278 - 305 mOsm/kg 10/22/2025 6:20 AM EST [facility] EGFR >90 10/22/2025 6:20 AM EST [facility] Comment: As of [...] BLOOD ORDERABLES Final Resul t [facility] [address] [facility] * (ABNORMAL) Protime-INR (10/19/2025 11:03 PM EST) Only the most recent of14 resultswithin the time period is included. Pathologist [facility] Protime 18.2(H) 12.1 - 15.1 seconds 10/19/2025 11:27 PM EST [facility] INR 1.4(H) 0.9 - 1.1 10/19/2025 11:27 PM EST [facility] Comment: RECOMMENDED THERAPEUTIC RANGES USING INR : Stable oral anticoagulant therapy: 2.0 - 3.0 Mechanical prosthetic heart valve: 2.5 - 3.5 Recurrent acute myocardial infarction: 2.5 - 3.5 Plasma 10/19/2025 11:0 3 PM EST 10/19/2025 11:07 PM EST Aspen Parr MD LAB BLOOD ORDERABLES Final Resul t [facility] [address] [facility] * Lactic Acid (10/18/2025 10:20 PM EST) Only the most recent of5 resultswithin the time period is included. [facility] Lactate 0.8 0.5 - 2.2 mmol/L 10/18/2025 11:03 PM EST [facility] Plasma 10/18/2025 10:2 0 PM EST 10/18/2025 10:26 PM EST Aspen Parr MD LAB BLOOD ORDERABLES Final Resul t [facility] [address] [facility] * Prepare Fresh Frozen Plasma (10/18/2025 11:58 AM EST) Only the most recent of2 resultswithin the time period is included. Pathologist [facility] Product Code P2979N48 HCLL Unit Number [id number] HCLL Dispense Status Released from Crossmatch_RE HCLL Blood Expiration Date HCLL Coding System QHAG471 HCLL Product Code U0057P20 HCLL Unit Number [id number] HCLL Dispense Status Released from Crossmatch_RE HCLL Blood Expiration Date HCLL Coding System AYIJ150 HCLL Product Code F3351G22 HCLL Unit Number [id number] HCLL Dispense Status Released from Crossmatch_RE HCLL Blood Expiration Date HCLL Coding System PYWS022 HCLL Product Code F0674W99 HCLL Unit Number [id number] HCLL Dispense Status Released from Crossmatch_RE HCLL Blood Expiration Date HCLL Coding System VQTL523 HCLL Product Code X6723A06 HCLL Unit Number [id number] HCLL Dispense Status Released from Crossmatch_RE HCLL Blood Expiration Date HCLL Coding System PEXT028 HCLL us Attending Provider Unknown BLOOD BANK [...] below level of diaphragms and outside the xdcgq-bp-rzpp. Right internal jugular approach pulmonary artery catheter [...] courses below level of diaphragms andoutside the hyloq-yb-ghge. Right internal jugular approach pulmonaryartery catheter projects [...] the time period is included. Product Code P5622A34 [facility] Unit Number [id number] HCLL Dispense Status Presumed Transfused_PT HCLL Blood Expiration Date [facility] Coding System [id number] [facility] Blood Bank Product us Oskar Torres MD BLOOD BANK PRODUCT ORDERABLES Final Result HCLL * Prepare RBC, leukoreduced, 5 Units (10/18/2025 6:16 AM EST) Only the most recent of2 resultswithin the time period is included. Product Code E0167A04 HCLL Unit Number [id number] HCLL Dispense Status Presumed Transfused_PT HCLL Blood Expiration Date HCLL Coding System LIIZ696 HCLL Product Code W3435B69 HCLL Unit Number [id number] HCLL Dispense Status Presumed Transfused_PT HCLL Blood Expiration Date HCLL Coding System TOAH010 HCLL Product Code Q7011V28 HCLL Unit Number [id number] HCLL Dispense Status Presumed Transfused_PT HCLL Blood Expiration Date HCLL Coding System FJJX903 HCLL Product Code D9076C96 HCLL Unit Number [id number] HCLL Dispense Status Released from Crossmatch_RE HCLL Blood Expiration Date HCLL Coding System PQDR086 HCLL Product Code Q2756Y56 HCLL Unit Number [id number] HCLL Dispense Status Presumed Transfused_PT HCLL Blood Expiration Date HCLL Coding System SPTV622 HCLL Blood Bank Product Kassi INTERIANO BLOOD BANK PRODUCT ORDERABLES Final Result HCLL * Prepare Cryoprecipitate (10/18/2025 6:15 AM EST) Only the most recent of5 resultswithin the time period is included. Product Code A8233B25 HCLL Unit Number [id number] HCLL Dispense Status Presumed Transfused_PT HCLL Blood Expiration Date HCLL Coding System WLDC648 HCLL Attending Provider Unknown BLOOD BANK PRODUCT OR DERABLES Final Result HCLL * (ABNORMAL) Blood gas, arterial (10/18/2025 5:19 AM EST) Only the most recent of2 resultswithin the time period is included. O2 Sat, Arterial 97 10/18/2025 5:28 AM EST [facility] FIO2 40 10/18/2025 5:28 AM EST [facility] pH, Arterial 7.34(L) 7.35 - 7.45 10/18/2025 5:28 AM EST [facility] pCO2, Arterial 48(H) 35 - 45 mm Hg 10/18/2025 5:28 AM EST [facility] pO2, Arterial 84 80 - 100 mm Hg 10/18/2025 5:28 AM EST [facility] HCO3, Arterial 25 22 - 26 mmol/L 10/18/2025 5:28 AM EST [facility] CO2 Content,Arteri al 27 23 - 27 mmol/L 10/18/2025 5:28 AM EST [facility] Base Excess, Arterial -0.2 -2.0 - 3.0 mmol/L 10/18/2025 5:28 AM EST [facility] %HBO2, Arterial 94.1(L) 95.0 - 98.0 % 10/18/2025 5:28 AM EST [facility] Carboxyhemoglo bin, Arterial 2.5 % 10/18/2025 5:28 AM EST [facility] Comment: CARBOXYHEMOGLOBIN (CO) REFERENCE RANGES: Non-Smokers: <2 % Smokers: <8 % TOXIC: >20 % Methemoglobin, Arterial 0.5 0.0 - 1.5 % 10/18/2025 5:28 AM EST [facility] Blood, Arterial 10/18/2025 5 :19 AM EST 10/18/2025 5:25 AM EST us Vani Drew MD LAB BLOOD ORDERABLES Final R esult [facility] [address] [place] [address], [facility] * XR Portable Feeding Tube Check [...] 10/17/2025 11:50 PM EST Duarte Jackson MD IMG DIAGNOSTIC IMAGI NG ORDERABLES Final Result * (ABNORMAL) TEG-Standard Global Hemostasis (Rapid TEG with Heparin Effect, Contains a Baseline TEG) (10/17/2025 10:50 PM EST) Only the most recent of2 resultswithin the time period is included. [facility] Citrated Kaolin Reaction Time (TEGHEPARINASE) 12.7(H) 4.6 - 9.1 minutes 10/18/2025 12:03 AM EST [facility] Citrated Rapid Teg Maximum Amplitude (TEGHEPARINASE) 47.8(L) 52.0 - 70.0 mm 10/18/2025 12:03 AM EST [facility] Citrated Functional Fibrinogen Maximum Amplitude (TEGHEPARINASE) 16.8 15.0 - 32.0 mm 10/18/2025 12:03 AM EST [facility] Citrated Kaolin W/Heparinase Reaction Time (TEGHEPARINASE) 11.0(H) 4.3 - 8.3 minutes 10/18/2025 12:03 AM EST [facility] Citrated Kaolin K-Time (TEGHEPARINASE) 4.9(H) 0.8 - 2.1 minutes 10/18/2025 12:03 AM EST [facility] Citrated Kaolin Angle (TEGHEPARINASE) 40.0(L) 63.0 - 78.0 degrees 10/18/2025 12:03 AM EST [facility] Citrated Kaolin Maximum Amplitude (TEGHEPARINASE) 45.2(L) 52.0 - 69.0 mm 10/18/2025 12:03 AM EST [facility] Citrated Functional Fibrinogen- Fibrinogen Level (TEGHEPARINASE) 306.6 278.0 - 581.0 mg/dL 10/18/2025 12:03 AM EST [facility] Whole Blood (Citrate) 10/17/2025 10:50 PM EST 10/17/2025 10:55 PM EST us Aspen Parr MD LAB BLOOD ORDERABLES Final Resul t [facility] [address] [facility]. [place] [id number], [facility] * Calcium Free, Serum (10/17/2025 10:50 PM EST) [facility] Free Calcium, Ser 4.76 4.40 - 5.40 mg/dL 10/17/2025 11:15 PM EST [facility] Comment:Free calcium levels vary inversely with pH by approximately 5% for each 0.1 unit of pH change. Assay results have been normalized to pH = 7.40. Serum 10/17/2025 10:5 0 PM EST 10/17/2025 10:55 PM EST Narrative [facility] - 10/17/2025 11:15 PM EST This test has been developed and its performance characteristics determined by [facility] which is certified under the Clinical [...] BLOOD ORDERABLES Final Result Performing Organization Address City/[facility]/ZIP Co de Phone Number [facility] [address] [place] [address] * Fibrinogen (10/17/2025 10:50 PM EST) Only the most recent of6 resultswithin the time period is included. [facility] Fibrinogen 253 218 - 406 mg/dL 10/17/2025 11:06 PM EST [facility] Plasma 10/17/2025 10:5 0 PM EST 10/17/2025 10:55 PM EST Aspen Parr MD LAB BLOOD ORDERABLES Final Resul t Performing Organization Address City/[facility]/ZIP Co de Phone Number [facility] [address] * POC Lactate (10/17/2025 9:25 PM EST) Only the most recent of8 resultswithin the time period is included. [facility] POC Lactate 1.50 0.50 - 2.20 mmol/L 10/17/2025 9:51 PM EST [facility] Blood, Arterial 10/17/2025 9 :25 PM EST 10/17/2025 9:51 PM EST Vani Drew MD POINT OF CARE TEST ORDERABLE S Final Result [facility] [address] [facility]. [address] * POC TCO2 (10/17/2025 9:25 PM EST) Only the most recent of8 resultswithin the time period is included. POC TCO2, Arterial 23 23 - 27 mmol/L 10/17/2025 9:51 PM EST [facility] Blood, Arterial 10/17/2025 9 :25 PM EST 10/17/2025 9:51 PM EST Vani Drew MD POINT OF CARE TEST ORDERABLE S Final Result Performing Organization Address [facility]/ZIP Co de Phone Number [facility] [address] [facility] * POC Sodium (10/17/2025 9:25 PM EST) Only the most recent of8 resultswithin the time period is included. POC Sodium 142 136 - 146 mmol/L 10/17/2025 9:51 PM EST [facility] Blood, Arterial 10/17/2025 9 :25 PM EST 10/17/2025 9:51 PM EST Vani Drew MD POINT OF CARE TEST ORDERABLE S Final Result Performing Organization Address City/[facility]/ZIP Co de Phone Number [facility] [address] [facility] * POC Potassium (10/17/2025 9:25 PM EST) Only the most recent of8 resultswithin the time period is included. POC Potassium 3.7 3.5 - 5.3 mmol/L 10/17/2025 9:51 PM EST [facility] Blood, Arterial 10/17/2025 9 :25 PM EST 10/17/2025 9:51 PM EST Vani Drew MD POINT OF CARE TEST ORDERABLE S Final Result [facility] [address] [facility]. [address] * (ABNORMAL) POC PO2 (10/17/2025 9:25 PM EST) Only the most recent of8 resultswithin the time period is included. POC pO2, Arterial 161(H) 80 - 100 mm Hg 10/17/2025 9:51 PM EST [facility] Blood, Arterial 10/17/2025 9 :25 PM EST 10/17/2025 9:51 PM EST Vani Drew MD POINT OF CARE TEST ORDERABLE S Final Result Performing Organization Address City/[facility]/ZIP Co de Phone Number [facility] [address] [facility]. [address] * POC PCO2 (10/17/2025 9:25 PM EST) Only the most recent of8 resultswithin the time period is included. POC pCO2, Arterial 38 35 - 45 mm Hg 10/17/2025 9:51 PM EST [facility] Blood, Arterial 10/17/2025 9 :25 PM EST 10/17/2025 9:51 PM EST Vani Drew MD POINT OF CARE TEST ORDERABLE S Final Result Performing Organization Address City/[facility]/ZIP Co de Phone Number [facility] [address] [facility] * (ABNORMAL) POC O2 SAT (10/17/2025 9:25 PM EST) Only the most recent of8 resultswithin the time period is included. POC O2 Saturation, Arterial 99(H) 95 - 98 % 10/17/2025 9:51 PM EST [facility] Blood, Arterial 10/17/2025 9 :25 PM EST 10/17/2025 9:51 PM EST Vani Drew MD POINT OF CARE TEST ORDERABLE S Final Result Performing Organization Address City/[facility]/ZIP Co de Phone Number [facility] [address] [facility] [address] * POC HCO3 (10/17/2025 9:25 PM EST) Only the most recent of8 resultswithin the time period is included. POC HCO3, Arterial 22 22 - 26 mmol/L 10/17/2025 9:51 PM EST [facility] Blood, Arterial 10/17/2025 9 :25 PM EST 10/17/2025 9:51 PM EST Vani Drew MD POINT OF CARE TEST ORDERABLE S Final Result Performing Organization Address [facility] Co de Phone Number [facility] [address] [place] [address]. [address] * (ABNORMAL) POC Chloride (10/17/2025 9:25 PM EST) Only the most recent of8 resultswithin the time period is included. POC Chloride 111(H) 98 - 110 mmol/L 10/17/2025 9:51 PM EST [facility] Blood, Arterial 10/17/2025 9 :25 PM EST 10/17/2025 9:51 PM EST Vani Drew MD POINT OF CARE TEST ORDERABLE S Final Result Performing Organization Address City/[facility] Co de Phone Number [facility] [address] [place] [address]. [address] * (ABNORMAL) POC Base Excess (10/17/2025 9:25 PM EST) Only the most recent of8 resultswithin the time period is included. POC Base Excess, Arterial -3(L) -2 - 3 mmol/L 10/17/2025 9:51 PM EST [facility] Blood, Arterial 10/17/2025 9 :25 PM EST 10/17/2025 9:51 PM EST Vani Drew MD POINT OF CARE TEST ORDERABLE S Final Result Performing Organization Address City/[facility]/ZIP Co de Phone Number [facility] [address] [facility]. [address] * POC Anion Gap (10/17/2025 9:25 PM EST) Only the most recent of8 resultswithin the time period is included. POC Anion Gap, Arterial 9 3 - 16 mmol/L 10/17/2025 9:51 PM EST [facility] Blood, Arterial 10/17/2025 9 :25 PM EST 10/17/2025 9:51 PM EST Vani Drew MD POINT OF CARE TEST ORDERABLE S Final Result Performing Organization Address [facility] Co de Phone Number [facility] [address] [facility]. [address] * POC Sample Type (10/17/2025 9:25 PM EST) Only the most recent of8 resultswithin the time period is included. POC Sample Type Arterial 10/17/2025 9:51 PM EST [facility] Blood, Arterial 10/17/2025 9 :25 PM EST 10/17/2025 9:51 PM EST Vani Drew MD POINT OF CARE TEST ORDERABLE S Final Result Performing Organization Address City/[facility] Co de Phone Number [facility] [address] [facility]. [address] * POC pH (10/17/2025 9:25 PM EST) Only the most recent of8 resultswithin the time period is included. POC pH, Arterial 7.37 7.35 - 7.45 10/17/2025 9:51 PM EST [facility] Blood, Arterial 10/17/2025 9 :25 PM EST 10/17/2025 9:51 PM EST Vani Drew MD POINT OF CARE TEST ORDERABLE S Final Result [facility] [address] * (ABNORMAL) POC hematocrit (10/17/2025 9:25 PM EST) Only the most recent of8 resultswithin the time period is included. POC Hematocrit 26.0(L) 40 - 52 % 10/17/2025 9:51 PM EST [facility] Blood, Arterial 10/17/2025 9 :25 PM EST 10/17/2025 9:51 PM EST Vani Drew MD POINT OF CARE TEST ORDERABLE S Final Result Performing Organization Address City/[facility] Co de Phone Number [facility] [address] [facility] * POC Ionized Calcium (10/17/2025 9:25 PM EST) Only the most recent of8 resultswithin the time period is included. POC Ionized Calcium 4.90 4.50 - 5.30 mg/dL 10/17/2025 9:51 PM EST [facility] Blood, Arterial 10/17/2025 9 :25 PM EST 10/17/2025 9:51 PM EST us Vani Drew MD POINT OF CARE TEST ORDERABLE S Final Result [facility] [address] [facility]. [address] * (ABNORMAL) POC Glucose (10/17/2025 9:25 PM EST) Only the most recent of8 resultswithin the time period is included. POC Glucose, Arterial 227(H) 70 - 100 mg/dL 10/17/2025 9:51 PM EST [facility] Blood, Arterial 10/17/2025 9 :25 PM EST 10/17/2025 9:51 PM EST Vani Drew MD POINT OF CARE TEST ORDERABLE S Final Result Performing Organization Address City/[facility] Co de Phone Number [facility] [address] [place] [address]. [address] * (ABNORMAL) POC Hemoglobin (10/17/2025 9:25 PM EST) Only the most recent of8 resultswithin the time period is included. POC Hemoglobin 9.0(L) 14.0 - 18.0 g/dL 10/17/2025 9:51 PM EST [facility] Blood, Arterial 10/17/2025 9 :25 PM EST 10/17/2025 9:51 PM EST Vani Drew MD POINT OF CARE TEST ORDERABLE S Final Result Performing Organization Address [facility] de Phone Number [facility] [address] [place] [address]. [address] * (ABNORMAL) POC INR (10/17/2025 9:24 PM EST) Only the most recent of8 resultswithin the time period is included. Prothrombin Time INR, POC 2.3(H) 0.8 - 1.4 10/18/2025 12:08 AM EST [email or web address] LAB Comment: Test results may vary using [...] TEST ORDERABLE S Final Result [facility] [address] [place] [address], [facility] * Transfuse Fresh Frozen Plasma (10/17/2025 [...] minutes 10/17/2025 10:13 PM EST [facility] Citrated Kaolin W/Heparinase Reaction Time (TEGECMOLIVER) 3.4(L) 4.3 - 8.3 minutes 10/17/2025 10:13 PM EST [facility] Citrated Kaolin Maximum Amplitude (TEGECMOLIVER) 45.4(L) 52.0 - 69.0 mm 10/17/2025 10:13 PM EST [facility] Citrated Functional Fibrinogen W/Heparinase Maximum Amplitude(TEGEC MOLIVER) 18.0 15.0 - 34.0 mm 10/17/2025 10:13 PM EST [facility] Citrated Rapid Teg W/Heparinase Maximum Amplitude (TEGECMOLIVER) 40.5(L) 53.0 - 69.0 mm 10/17/2025 10:13 PM EST [facility] Citrated Kaolin w/Heparinase Percent Lysis (TEGECMOLIVER) 0.0 0.0 - 3.2 % 10/17/2025 10:13 PM EST [facility] Whole Blood (Citrate) 10/17/2025 8:31 PM EST 10/17/2025 8:40 PM EST Oskar Torres MD LAB BLOOD ORDERABLES Final Re sult [facility] [address] [place] [address], [facility] * Transfuse RBC (10/17/2025 5:34 PM EST) Only the most recent of5 resultswithin the time period is included. Slade Munoz MD NURSING TREATMENT ORDERABLES - B LOOD ADMIN Final Result * Surgical Pathology Exam (10/17/2025 5:20 PM EST) Tissue LIVER STRUCTURE / Unknown 10/17/2025 5:20 PM EST Narrative [facility] - 10/17/2025 12:00 AM EST CASE: [id number] PATIENT: DAVID SERRANO Clinical History: transplant liver Pre-Operative Diagnosis: end stage liver disease Post-Operative Diagnosis: same Specimen(s) Submitted: A. [place] liver and gallbladder; B. Right lobe post perfusion liver bx; C. Left lobe post perfusion liver bx CPT Code(s): 44222 X 2; 29159 X 1; 88625 X 7 Additional Information: FINAL DIAGNOSIS: Liver and gall bladder, lime, total hepatectomy with cholecystectomy: Liver: -Cirrhosis, mild [...] with the patient's name David Serrano and lime liver and gallbladder is a 782 gram, [...] no discrete masses or lesions are identified. [employer] sections are submitted in cassettes [id number] as follows: A1: [place] [employer] gallbladder. A2: Hilar margins, en face. A3-A5: [place] [employer] right lobe. A6-A8: [employer] left lobe with liver written on the side of the cassette in A8. (LAISHA Miranda/) B. Received in formalin, labeled with the patient's name David Serrano and right lobe post perfusion liver biopsy is a 1.6 cm in length x 0.1 cm in diameter red-brown tissue core, which is entirely submitted between blue biopsy sponges in cassette [id number]. (LAISHA Miranda/) C. Received in formalin, labeled with the patient's name David Serrano and left lobe post perfusion liver biopsy is a 1.3 cm in length x 0.1 cm in diameter red-brown fragmented tissue core, which is entirely submitted between blue biopsy sponges in cassette [id number]. (LAISHA Miranda/) Microscopic Description: Sixteen HE [...] Pathologist signing this report is located at [facility], [address] [place] [address], [place], [place], [facility], , CLIA ID: [id number] Jesus Lomeli MD PATHOLOGY/CYTOLOGY ORDERABLES Final Result Performing Organization Address [facility] de Phone Number [facility] * (ABNORMAL) APTT, No Anticoagulant (10/17/2025 4:56 PM EST) Only the most recent of2 resultswithin the time period is included. aPTT 55.7(H) 25.5 - 35.0 seconds 10/17/2025 5:32 PM EST [facility] Plasma 10/17/2025 4:56 PM EST 10/17/2025 5:06 PM EST Slade Munoz MD LAB BLOOD ORDERABLES Final Resul t Performing Organization Address City/[facility]/ZIP Co de Phone Number [facility] [address] [place] [address] * Routine Culture plus Stain (Surgical Swab) (10/17/2025 2:50 PM EST) Gram Stain Result Rare Polymorphonuclear Leukocytes Seen [facility] Gram Stain Result No Organisms Seen; [facility] Culture Result No Growth After 3 Days [facility] Surgical Swab PERITONEAL FLUID / Unknown 10/17/2025 2:50 PM EST Comment:1. Ascites-anaerobic , aerobic, and fungal Narrative [facility] - 10/20/2025 11:09 AM EST 1. Ascites-anaerobic, aerobic, and fungal 1. Ascites-anaerobic, aerobic, and fungal Vani Drew MD MICROBIOLOGY - GENERAL ORDER MARYA Final Result [facility] [address] [facility] * Anaerobic culture (Surgical Swab) (10/17/2025 2:50 PM EST) Culture Result No Anaerobes Isolated in 5 Days [facility] Surgical Swab PERITONEAL FLUID / Unknown 10/17/2025 2:50 PM EST Comment:1. Ascites-anaerobic , aerobic, and fungal Narrative [facility]ALTH [facility] - 10/22/2025 11:32 AM EST 1. Ascites-anaerobic, aerobic, and fungal 1. Ascites-anaerobic, aerobic, and fungal Vani Drew MD MICROBIOLOGY - GENERAL ORDER MARYA Final Result Performing Organization Address City/[facility] Co de Phone Number [facility] [address] [facility]. [address] * CENTRAL LINE SINGLE LUMEN PERFORMABLE, [...] ICU team post op Complications: none Result [facility] Slade Munoz MD PROCEDURE/MINOR SURGICAL [...] post op PA catheter complications: None Result [facility] Slade Munoz MD IV THERAPY [...] Reflex to Genotyp (10/17/2025 10:19 AM EST) [facility] International Units Not Detected IU/mL 10/19/2025 2:12 PM EST [facility] Comment:Test methodology for HCV [...] IU/mL 10/19/2025 2:12 PM EST [facility] Comment:HCV RNA not detected . Plasma 10/17/2025 10:1 9 AM EST 10/17/2025 11:09 AM EST Kassi INTERIANO LAB BLOOD ORDERABLES Final Re sult Performing Organization Address City/[facility]/ZIP Co de Phone Number [facility] [address] * Hepatitis A Antibody Total (10/17/2025 10:18 AM EST) [facility] Anti-HAV Total (IgG + IgM) Reactive 10/17/2025 12:22 PM EST [facility] Serum 10/17/2025 10:1 8 AM EST 10/17/2025 10:46 AM EST Narrative [facility] - 10/17/2025 12:22 PM EST HAV antibodies detected Kassi INTERIANO LAB BLOOD ORDERABLES Final Re sult Performing Organization Address City/[facility]/ZIP Co de Phone Number [facility] [address] * (ABNORMAL) Venous Blood Gas, Line/Syringe, STAT (10/17/2025 10:18 AM EST) [facility] PH-Line Draw 7.37 7.32 - 7.42 10/17/2025 10:27 AM EST [facility] PCO2-Line Draw 46 41 - 51 mm Hg 10/17/2025 10:27 AM EST [facility] PO2-Line Draw 29 25 - 40 mm Hg 10/17/2025 10:27 AM EST [facility] HCO3-Line Draw 24 24 - 28 mmol/L 10/17/2025 10:27 AM EST [facility] CO2 Content-Line Draw 28 25 - 29 mmol/L 10/17/2025 10:27 AM [facility] Base Excess-Line Draw 0.9 -2.0 - 3.0 mmol/L 10/17/2025 10:27 AM EST [facility] %HBO2-Line Draw 38.5(L) 40.0 - 70.0 % 10/17/2025 10:27 AM [facility] Carboxyhgb-Rebecca e Draw 1.4 0.0 - 2.0 % 10/17/2025 10:27 AM [facility] Comment: CARBOXYHEMOGLOBIN (CO) REFERENCE RANGES: Non-Smokers: <2 % Smokers: <8 % TOXIC: >20 % Methemoglobin- Line Draw 0.6 0.0 - 1.5 % 10/17/2025 10:27 AM EST [facility] Blood, Venous 10/17/2025 10: 18 AM EST 10/17/2025 10:24 AM EST Kassi INTERIANO LAB BLOOD ORDERABLES Final Re sult [facility] [address] * CMV IgG Antibody (10/17/2025 10:18 AM EST) CMV IgG Negative Negative 10/17/2025 12:16 PM EST [facility] CMV IGG NUM <0.20 0.00 - 0.59 U/mL 10/17/2025 12:16 PM EST [facility] Serum 10/17/2025 10:1 8 AM EST 10/17/2025 10:46 AM EST us Kassi INTERIANO LAB BLOOD ORDERABLES Final Re sult [facility] [address] [facility] * Hepatitis B Core Antibody (10/17/2025 10:18 AM EST) Pathologist [facility] Hep B Core Total Ab Nonreactive Nonreactive 10/17/2025 12:17 PM EST [facility] Comment:Health Department no tified in accordance with reportable infectious disease guidelines. Serum 10/17/2025 10:1 8 AM EST 10/17/2025 10:46 AM EST Narrative [facility] - 10/17/2025 12:17 PM EST A nonreactive final interpretation indicates that anti-HBc antibodies were not detected in the sample; it is possible that the individual is not infected with HBV. Kassi INTERIANO LAB BLOOD ORDERABLES Final Re sult Performing Organization Address [facility] Co de Phone Number [facility] [address] [facility] * Hepatitis C Antibody (10/17/2025 10:18 AM EST) Pathologist [facility] HCV Ab Nonreactive Nonreactive 10/17/2025 12:25 PM EST [facility] Comment:Health Department no tified in accordance with reportable infectious disease guidelines. Serum 10/17/2025 10:1 8 AM EST 10/17/2025 10:46 AM EST Narrative [facility] - 10/17/2025 12:25 PM EST Antibodies to HCV not detected; does not exclude the possibility of exposure to HCV. [facility] LAB BLOOD ORDERABLES Final Re sult Performing Organization Address City/[facility]/ZIP Co de Phone Number [facility] [address] [facility] * (ABNORMAL) Jose-Beard Virus VCA IgG Ab (10/17/2025 10:18 AM EST) Pathologist [facility] EBV VCA IgG Positive( A) Negative 10/17/2025 12:18 PM EST [facility] Comment:Presence of detectab le VCA IgG antibodies. A positive result indicates current or past exposure to Jose-Beard virus. EBV IGG NUM >750.00(H ) 0.00 - 17.99 U/mL 10/17/2025 12:18 PM EST [facility] Serum 10/17/2025 10:1 8 AM EST 10/17/2025 10:46 AM EST Kassi INTERIANO LAB BLOOD ORDERABLES Final Re sult Performing Organization Address City/[facility]/ZIP Co de Phone Number [facility] [address] [facility] * ABO/Rh (10/17/2025 10:18 AM EST) Only the most recent of2 resultswithin the time period is included. ABO Grouping A 10/17/2025 10:53 AM EST [facility] Rh Type Positive 10/17/2025 10:53 AM EST [facility] Blood 10/17/2025 10:1 8 AM EST 10/17/2025 10:26 AM EST Kassi INTERIANO BLOOD BANK TEST ORDERABLES Fi nal Result Performing Organization Address City/[facility] Co de Phone Number [facility] [address] [facility]. [address] * Vitamin D 25 Hydroxy (10/17/2025 10:18 AM EST) Vit D, 25-Hydroxy 39.3 30.0 - 100.0 ng/mL 10/17/2025 12:15 PM EST [facility] Comment: Vitamin D deficiency has been defined by the Seth of Medicine (IOM) and an Endocrine Society practice guideline as a level of serum 25-OH Vitamin D less than 20 ng/mL. The Endocrine Society went on to further define Vitamin D insufficiency as a level between 21-29 ng/mL. 1) IOM. 2011 Dietary reference intakes for calcium and D. Espinoza D.C: The National Academies Press 2) Mateo Freemankley [place], Taniya GALE, et al. Evaluation, treatment, and prevention of Vitamin D deficiency: an Endocrine Society clinical practice guideline. JCEM. 2010; 96(6):1911-30. Serum 10/17/2025 10:1 8 AM EST 10/17/2025 10:46 AM EST Kassi INTERIANO LAB BLOOD ORDERABLES Final Re sult Performing Organization Address City/[facility] Co de Phone Number [facility] [address] [facility] * Toxoplasma gondii Antibody, IgG (10/17/2025 10:18 AM EST) Only the most recent of2 resultswithin the time period is included. Toxoplasma Gondii IgG <3.0 0.0 - 7.1 IU/mL 10/18/2025 4:54 AM EST [facility] Comment: Negative <7.2 Equivocal 7.2 - 8.7 Positive >8.7 Serum 10/17/2025 10:1 8 AM EST 10/18/2025 5:06 AM EST Narrative [facility] - 10/18/2025 5:06 AM EST PERFORMED AT: [facility] [address] [id number] [employer] GENERATOR: Mateo Miller, PhD PHONE: [phone] Kassi INTERIANO LAB BLOOD ORDERABLES Final Re sult Performing Organization Address City/[facility] Co de Phone Number [facility] [address] [facility] * HIV 1+2 Antibody/Antigen with Reflex (10/17/2025 10:18 AM EST) Pathologist [facility] HIV 1+2 AB/AGN Nonreactive Nonreactive 10/17/2025 12:16 PM EST [facility] Serum 10/17/2025 10:1 8 AM EST 10/17/2025 10:46 AM EST Narrative [facility] - 10/17/2025 12:16 PM EST \HIVRNR Kassi INTERIANO LAB BLOOD ORDERABLES Final Re sult [facility] [address] [facility]. [address] * (ABNORMAL) Hepatitis B Surface Antibody, Quantitati (10/17/2025 10:18 AM EST) Hep B S Ab Reactive( A) Nonreactive 10/17/2025 12:29 PM EST [facility] HBSAB NUMBER 260.00(H) 0.00 - 7.99 mIU/mL 10/17/2025 12:29 PM EST [facility] Serum 10/17/2025 10:1 8 AM EST 10/17/2025 10:46 AM EST [facility] - 10/17/2025 12:29 PM EST Individual is considered immune to HBV infection. Kassi INTERIANO LAB BLOOD ORDERABLES Final Re sult Performing Organization Address [facility]/ZIP Co de Phone Number [facility] [address] [facility] * Hepatitis B surface antigen (10/17/2025 10:18 AM EST) Hep B Surface Ag Nonreactive Nonreactive 10/17/2025 12:21 PM EST [facility] Comment:Health Department no tified in accordance with reportable infectious disease guidelines. Serum 10/17/2025 10:1 8 AM EST 10/17/2025 10:46 AM EST [facility] - 10/17/2025 12:21 PM EST Specimen is considered negative for HBsAg. Kassi INTERIANO LAB BLOOD ORDERABLES Final Re sult [facility] [address] [facility]. [address] * Antibody Screen (10/17/2025 10:18 AM EST) Pathologist [facility] Antibody Screen Negative 10/17/2025 11:09 AM EST [facility] Blood 10/17/2025 10:1 8 AM EST 10/17/2025 10:26 AM EST Narrative [facility] - 10/17/2025 11:17 AM EST Testing performed by [facility] Kassi INTERIANO BLOOD BANK TEST ORDERABLES Fi nal Result [facility] [address] [facility]. [address] * Hemoglobin A1C (10/17/2025 10:18 AM EST) Only the most recent of2 resultswithin the time period is included. Pathologist [facility] Hemoglobin A1C 4.0 4.0 - 5.6 % 10/17/2025 1:42 PM EST [facility] Comment: Hemoglobin A1c [...] BLOOD ORDERABLES Final Re sult [facility] [address] [facility] * (ABNORMAL) Urinalysis w/Rfl to Microscopic (09/24/2025 2:11 PM EST) Color, UA Yellow Yellow,Straw 09/24/2025 3:25 PM EST [facility] Clarity, UA Cloudy(A) Clear 09/24/2025 3:25 PM EST [facility] Specific [place], UA 1.019 1.005 - 1.035 09/24/2025 3:25 PM EST [facility] pH, UA 6.0 5.0 - 8.0 09/24/2025 3:25 PM EST [facility] Protein, UA 30(A) Negative mg/dL 09/24/2025 3:25 PM EST [facility] Glucose, UA Negative Negative mg/dL 09/24/2025 3:25 PM EST [facility] Ketones, UA Negative Negative mg/dL 09/24/2025 3:25 PM EST [facility] Bilirubin, UA Negative Negative 09/24/2025 3:25 PM EST [facility] Blood, UA Large(A) Negative 09/24/2025 3:25 PM EST [facility] Nitrite, UA Negative Negative 09/24/2025 3:25 PM EST [facility] Urobilinogen, UA <2.0 0.2 - 1.9 mg/dL 09/24/2025 3:25 PM EST [facility] Leukocyte Esterase, UA Large(A) Negative 09/24/2025 3:25 PM EST [facility] RBC, UA 61(H) 0 - 3 /HPF 09/24/2025 3:25 PM EST [facility] WBC, UA >100(H) 0 - 5 /HPF 09/24/2025 3:25 PM EST [facility] Squam Epithel, UA 1 0 - 5 /HPF 09/24/2025 3:25 PM EST [facility] Bacteria, UA Rare(A) None Seen /HPF 09/24/2025 3:25 PM EST [facility] Mucus, UA Present(A) None Seen /HPF 09/24/2025 3:25 PM EST [facility] Urine 09/24/2025 2:11 PM EST 09/24/2025 2:51 PM EST Nigel Reaves MD URINE ORDERABLES Final Result [facility] [address] [place] [id number], [facility] * Urine culture (09/24/2025 2:11 PM EST) Culture Result No Growth [facility] Midstream Urine URINE SPECIMEN / Unknown 09/24/2025 2:11 PM EST 09/24/2025 3:25 PM EST Nigel Reaves MD MICROBIOLOGY - GENERAL ORDERABLE S Final Result Performing Organization Address City/[facility]/ZIP Co de Phone Number [facility] [address] [facility] * (ABNORMAL) MMR(IgG) Panel (Measles, Mumps, Rubella) (09/10/2025 5:03 PM EDT) Mumps IgG Positive 09/10/2025 11:51 PM EDT [facility] MUMPS IGG NUM >300.00(H) 0.0 - 8.9 U/mL 09/10/2025 11:51 PM EDT [facility] Rubella IgG Scr Positive 09/10/2025 11:51 PM EDT [facility] RUB NUM 30.20(H) 0.0 - 0.8 INDEX 09/10/2025 11:51 PM EDT [facility] Rubeola Ab, IgG Positive 09/10/2025 11:50 PM EDT [facility] RUB IGG NUM >300.00(H) 0.00 - 13.40 U/mL 09/10/2025 11:50 PM EDT [facility] Serum 09/10/2025 5:03 PM EDT 09/10/2025 10:26 PM EDT Narrative [facility] - 09/10/2025 11:51 PM [...] BLOOD ORDERABLES Final Resu lt [facility] [address] [facility] * Syphilis Screening (Trepia) (09/10/2025 5:03 PM EDT) Treponema Pallidum Negative Negative 09/10/2025 11:55 PM EDT [facility] Comment: No serological evidence of infection with Treponema pallidum (incubating or early primary syphilis cannot be excluded). Serum 09/10/2025 5:03 PM EDT 09/10/2025 10:26 PM EDT Navi Sims MD LAB BLOOD ORDERABLES Final Resu lt [facility] [address] [facility] * QuantiFERON TB2 Ag (09/10/2025 5:03 PM EDT) QuantiFERON TB2 Ag Value 0.09 09/12/2025 1:19 PM EDT [facility] Plasma 09/10/2025 5:03 PM EDT 09/10/2025 6:29 PM EDT us Navi Sims MD LAB BLOOD ORDERABLES Final Resu lt Performing Organization Address City/[facility]/ZIP Co de Phone Number [facility] [address] [facility] * QuantiFERON TB1 Ag (09/10/2025 5:03 PM EDT) QuantiFERON TB1 Ag Value 0.08 09/12/2025 1:19 PM EDT [facility] Plasma 09/10/2025 5:03 PM EDT 09/10/2025 6:29 PM EDT us Navi Sims MD LAB BLOOD ORDERABLES Final Resu lt [facility] [address] [facility] * QuantiFERON Nil (09/10/2025 5:03 PM EDT) QuantiFERON Nil 0.02 1:19 PM EDT [facility] Plasma 09/10/2025 5:03 PM EDT 09/10/2025 6:29 PM EDT Navi Sims MD LAB BLOOD ORDERABLES Final Resu lt [facility] [address] [facility] * QuantiFERON Mitogen (09/10/2025 5:03 PM EDT) QuantiFERON Interpretation Negative Negative 09/12/2025 1:19 PM EDT [facility] Comment:Negative result pilar cates M. tuberculosis infection is NOT likely. Negative results do not preclude tuberculosis infection (especially in immunosuppressed patients). Negative results have a TB antigen minus Nil value less than 0.35 IU/mL. In cases with high suspicion of disease, retesting or additional testing with medical evaluation may be useful. QuantiFERON Mitogen 8.77 09/12 1:19 PM EDT [facility] Plasma 09/10/2025 5:03 PM EDT 09/10/2025 6:29 PM EDT Narrative [facility] - 09/12/2025 1:19 [...] BLOOD ORDERABLES Final Resu lt [facility] [address] [facility] * (ABNORMAL) Strongyloides Ab (09/10/2025 5:03 PM EDT) Strongyloides Ab Positive( A) Negative 09/17/2025 2:56 PM EST [facility] Serum 09/10/2025 5:03 PM EDT 09/17/2025 3:07 PM EST Narrative HEALTH LAB - 09/17/2025 3:07 PM EST PERFORMED AT: [facility] [id number] EYEGLASS LENS GENERATOR: Kevin Holguin MD PHONE: [phone] Navi Sims MD LAB BLOOD ORDERABLES Final Resu lt [facility] [address] [facility] * AFP tumor marker (09/10/2025 5:03 PM EDT) [facility] AFP-Tumor Marker 2.0 0.0 - 9.0 ng/mL 09/10/2025 8:52 PM EDT [facility] Serum 09/10/2025 5:03 PM EDT 09/10/2025 6:42 PM EDT Narrative [facility] - 09/10/2025 8:52 PM EDT The testing method for AFP is a chemiluminescent immunoassay manufactured by [facility] Concentrations of AFP obtained by different assay methods or kits may vary and cannot be used interchangeably. AFP results cannot be interpreted as absolute evidence of the presence or absence of malignant disease. Buddy Zimmerman MD LAB BLOOD ORDERABLES Final Resul t [facility] [address] [facility] * (ABNORMAL) Varicella zoster antibody, IgG (09/10/2025 5:03 PM EDT) Pathologist [facility] Varicella IgG Positive( A) Negative S/CO 09/10/2025 11:49 PM EDT [facility] Comment:Result indicates the presence of [...] S/CO 09/10/2025 11:49 PM EDT [facility] Serum 09/10/2025 5:03 PM EDT 09/10/2025 10:26 PM EDT Navi Sims MD LAB BLOOD ORDERABLES Final Resu lt Performing Organization Address [facility]/ZIP Co de Phone Number [facility] [address] [facility] * TSH (Thyroid Stimulating Hormone) (09/10/2025 5:03 PM EDT) TSH 2.85 0.45 - 4.12 uIU/mL 09/11/2025 12:13 AM EDT [facility] Serum 09/10/2025 5:03 PM EDT 09/10/2025 6:42 PM EDT Buddy Zimmerman MD LAB BLOOD ORDERABLES Final Resul t Performing Organization Address [facility] Co de Phone Number [facility] [address] [place] [address]. [address] * (ABNORMAL) Lipid Profile (09/10/2025 5:03 PM EDT) Non-HDL Cholesterol, Calculated 109 0 - 129 mg/dL 09/10/2025 8:21 PM EDT [facility] Comment: Desirable: < 130 mg/dL Above Desirable: 130-159 mg/dL Borderline High: 160-189 mg/dL High: 190-219 mg/dL Very High: > 219 mg/dL Cholesterol, Total 135 0 - 200 mg/dL 09/10/2025 8:21 PM EDT [facility] Triglycerides 60 10 - 149 mg/dL 09/10/2025 8:21 PM EDT [facility] HDL 26(L) 60 - 92 mg/dL 09/10/2025 8:21 PM EDT [facility] Comment: LIPID PROFILE INTERPRETATION [...] 97 mg/dL 8:21 PM EDT [facility] Plasma 09/10/2025 5:03 PM EDT 09/10/2025 5:52 PM EDT Narrative [facility] - 09/10/2025 8:21 PM EDT Must the patient be fasting for this test?->No LDL cholesterol calculated using the Friedewald equation. us Buddy Zimmerman MD LAB BLOOD ORDERABLES Final Resul t [facility] [address] [place] [address], [facility] * ECG 12-Lead (MUSE) (09/10/2025 12:14 PM EDT) 09/10/2025 12:1 4 PM EDT Narrative MUSE - 09/10/2025 3:28 PM EDT Ventricular Rate: 64 BPM Atrial Rate: 64 BPM P-R Interval: 190 ms QRS Duration: 84 ms QT: 464 ms QTc: 478 ms P [place]: 27 degrees R [place]: 58 degrees T [place]: 22 degrees Diagnosis Line: NORMAL SINUS RHYTHM ^ NORMAL ECG ^ No previous ECGs available ^ Confirmed by MD TIP, CHEL ([id number]) on 09/10/2025 3:28:36 PM us Buddy [...] lesion or acute osseous abnormality. Procedure Note Abdiel, Shashidhara A., MD - 09/12/2025 EXAM: CT CHEST WO [...] within the right upper lobe with downstream [id number]-dbqodvmjrjjyx within the paramedian right upper lobe apex. [...] R esult from Last 3 Months Insurance [employer] ACCESS TRANSPLANT GLOBAL Member Subscriber Plan / Payer (Ef fective 2025-2025) Name:David Serrano Relation to Subscriber:Self Name:David Serrano Payer ID:[id number] Group ID:Not on file Type:Transplant Address: [facility] [place] [address] Advance Directives For more information, please contact: [phone] Documents on File Type Date Recorded Patient [employer]spring Torque Tester Expl anation Living Will Testament - scan 10/23/2025 Durable Power of X Ray Technologist - scan 10/23/2025 * Full Code (Latest Code Status on File) Date Activated Date Inactivated Comments 10/17/2025 9:46 AM 10/22/2025 9:30 PM Care Teams Database Dba Relationship Specialty Start Date End Date Dr. Chris Medel MD [facility] [address] [place] [address] PCP - General Primary Care 10/25/25
--- OUTSIDE RECORDS SUMMARY | 2025-11-01 07:01 | XMS_ITS | Encounter Summary ---
Author Organization [facility] Address [address] [place] [address] Care Team Providers Care Electric Motor Fitter Name Role Phone System, Provider Not In [...] release of HIV test results or diagnoses. [id number] Health Encounter Details Date Type Department Care Team (Late st Contact Info) Description 10/17/2025 Chart Note [facility] Liver Transplant at [address] [address] Maeve Hubbard, RN Per Dr Drew, patient [...] no extra vessels on 10/17/2025. EPIC and [employer] updated. documented in this encounter Plan of Treatment Not on file documented as of this encounter Visit Diagnoses Not on filedocumented in this encounter Additional Health Concerns Assessment Noted Time PHQ-9 Depression Total Score: 8 09/10/20 11:09 AM EDT documented as of this encounter Care Teams Electric Motor Fitter Relationship Specialty Start Date End Date System, Provider Not In PCP - General 09/10/25 10/24/25 documented as of this encounter
--- OUTSIDE RECORDS SUMMARY | 2025-11-01 07:02 | XMS_ITS | Encounter Summary ---
Author Organization [facility] Address [address] [place] [address] Care Team Providers Care Print Decorator Name Role Phone Dr. Chris Medel MD [...] release of HIV test results or diagnoses. [id number] Health Encounter Details Date Type Department Care Team (Late st Contact Info) Description 10/30/2025 Nutrition [facility] Kidney Transplant at [address] [address] Oskar Arango, FLEX Social History Tobacco Use Types Packs/Day Years [...] documented as of this encounter Care Teams Print Decorator Relationship Specialty Start Date End Date Dr. Chris Medel MD [address] [facility] [place] [address] PCP - General Primary Care 10/25/25 documented as of this encounter
--- OUTSIDE RECORDS SUMMARY | 2025-11-01 07:02 | XMS_ITS | Encounter Summary ---
Author Organization Healthcare Address [address] [place] [address] Care Team Providers Care Attorney General Name Role Phone Ruma Hernández TECHNICAL DEVELOPER Unavailable [phone] Chris Medel MD Primary Care Provider [phone] Reason for Visit * Reason Comments Med Refill Encounter Details Date Type Department Care Team (Late st Contact Info) Description 10/02/2025 Refill [facility] [address] [place] [address] Portia Maguire MD [address] [place] [address] Pre-liver transplant, listed (Primary Dx); [...] r organizations such as rastafarian groups, unions, engageSimply or athletic groups, or school groups? Yes [...] r organizations such as rastafarian groups, unions, engageSimply or athletic groups, or school groups? Yes [...] and heating? Not hard at all 06/15/2025 [facility] - Occupational Stress [...] drink first t luisa in the morning (EYE-ROTARY ENGINE ASSEMBLER) to steady your nerves or to [...] [facility], [address] [place] [address] Suhail Brock MD [address] [place] [address] 01/24/2026 4:40 PM EDT Office Visit Professional [employer] [facility] Bone [facility] Mineral Metabolism [address] [facility], [address] [place] [address] Moustapha Katz MD [address] [facility] [address] [place] [address] documented as of this encounter [...] documented as of this encounter Care Teams Attorney General Relationship Specialty [place] [address] PCP - General 03/14/25 Ruma Hernández APRN [address] [place] [address] Referring Physician Gastroenterology 07/30/23 documented as of this encounter
--- OUTSIDE RECORDS SUMMARY | 2025-11-01 07:02 | XMS_ITS | Encounter Summary ---
Author Organization [facility] Address [address] [place] [address] Care Team Providers Care Fha Underwriter Name Role Phone System, Provider Not In [...] release of HIV test results or diagnoses. [id number] Health Encounter Details Date Type Department Care Team (Late st Contact Info) Description 10/17/2025 Telephone [facility] Liver Transplant at [address] [address] Joslyn Faulkner, RN Social History [...] the past 12 months has th e [employer], gas, oil, or water company threatened to [...] [] No Pt instructed for admission Location: [facility] Estimated arrival time: 10/17 @ 0900 [...] Notifications: Department Phone Comments Time/Name Capacity Management [phone] Notified of patient's pending TXP ORGANS:Liver Time: Spoke to: n/a OR [phone] OR scheduled for: per Dr. Drew Recipient in the OR time 10/17 @ 1200 Acute donor Risk (according to OPTN policy)No (HCV, HBV, HIV, COVID) Notified Donor is DBD Time:29 spoke to Carlos OR turning machine operator: Blanca Cooper CREATED ORGAN Time: 26 BLOOD BANK [phone] For Liver and Heart only 33 spoke juve Fernández Nursing Cullet Washer [phone] For delayed call in 26 spoke with Abby PACU or [facility] [phone] Delayed call in: If recipient OR is 2 hrs or less from admission, call PACU/[facility] (basedon where nursing cereal supervisor assigns patient) 0730-spoke with [facility] Abdominal Transplant 8CCP [phone] Transfer of care reported for abdominal txp Notified of dialysis type and last session if applicable Time: 36 8CCP turning machine operator: Vasquez SICU [phone] Notify about abdominal txp admissions Time:37 SICU turning machine operator:Marisela Transplant Surgery Resident/PA QGenda Time: 809 Spoke to: Erikan Transplant Surgery Fellow QGenda Time: 29 Spoke to: Dr Haley Transplant Research Team [phone] Time: 809 Spoke to: [facility] IV [facility] [phone] Liver Only Contact pharmacy to alert that HBIG will be needed when all the following are present: Donor: *HBsAg negative *HBV DNA/NII negative Recipient: *HBsAg positive *HBV DNA is detectable on most recent check Time: Spoke to: N/A Email notification to Transplant Team(s) and OR turning machine operator. [Send the following information below to the [...] Venoveno bypass: no Donor info: Donor ID: [id number] Match ID: [id number] Anti-HBc: Negative HBV NII: Negative HBsAg: Negative [...] documented as of this encounter Care Teams Fha Underwriter Relationship Specialty Start Date End Date System, Provider Not In PCP - General 09/10/25 10/24/25 documented as of this encounter
--- OUTSIDE RECORDS SUMMARY | 2025-11-01 07:02 | XMS_ITS | Encounter Summary ---
Author Organization Healthcare Address [address] [place] [address] Care Team Providers Care Technical Document Writer Name Role Phone Ruma Hernández MAIL MANAGER Unavailable [phone] Chris Medel MD Primary Care Provider [phone] Encounter Details Date Type Department Care Team (Late st Contact Info) Description 10/08/2025 Orders Only [facility] Medicine Specialties [address] [place] [address] Provider, [place] [address] [address] [place] [phone] Social History Tobacco Use Types Packs/Day Years [...] often do you attend [facility] or yazidi services? More than 4 times per year 02/19/2025 Do you belong to any clubs o r organizations such as confucianism groups, unions, [employer] or athletic groups, or school groups? Yes [...] all 06/15/2025 [facility] - Occupational Stress Questionnaire Answer [...] drink first t luisa in the morning (EYE-VINEYARDIST) to steady your nerves or to get rid of a hangover? 0 06/14/2025 CAGE Questionnaire Score 0 025 Utilities Answer Date Recorded In the past 12 months has th e [employer], gas, oil, or water [employer] threatened to shut off services in your [...] Visit Medical Office Building Urology [address] [facility], [address] [place] [address] Suhail Brock MD [address] [facility] [address] [place] [address] 01/24/2026 4:40 PM EDT Office Visit Professional [employer] [facility] Bone & Mineral Metabolism [address] [facility], [address] [place] [address] Moustapha Katz MD [address] [facility] [address] [place] [address] documented as of this encounter Procedures Procedure Name Priority Date/Time Associated Diagnosis Comments COMPLETE METABOLIC PROFILE (CMP) Routine 10/08/2025 10:14 AM EST APTT Routine 10/08/2025 10:14 AM EST PROTHROMBIN TIME(PT) / INR Routine 10/08/2025 10:14 AM EST CBC WITH AUTO DIFFERENTIAL Routine 10/08/2025 10:14 AM EST documented in this encounter Results * COMPLETE METABOLIC PROFILE (CMP) (10/08/2025 10:14 AM EST) [facility] Provider LAB BLOOD ORDERABLES Final R esult * Prothrombin Time/INR (10/08/2025 10:14 AM EST) Blood Venous blood specimen / Unknown Result [facility] Provider LAB BLOOD ORDERABLES Final R esult * APTT (10/08/2025 10:14 AM EST) Blood Venous blood specimen / Unknown Result [facility] Provider LAB BLOOD ORDERABLES Final R esult * CBC and Differential (10/08/2025 10:14 AM EST) Blood Venous blood specimen / Unknown Result [facility] Provider LAB BLOOD ORDERABLES Final R [...] as of this encounter Care Teams Technical Document Writer Relationship Specialty [place] [address] PCP - General 03/14/25 Ruma Hernández APRN [address] [address] Referring Physician Gastroenterology 07/30/23 documented as of this encounter
--- OUTSIDE RECORDS SUMMARY | 2025-11-01 07:03 | XMS_ITS | Encounter Summary ---
Author Organization [facility] Address [address] [place] [address] Care Team Providers Care Forging Dies Final Finisher Name Role Phone System, Provider Not In [...] release of HIV test results or diagnoses. [id number] Health Encounter Details Date Type Department Care Team (Late st Contact Info) Description 09/25/2025 Telephone [facility] Liver Transplant at [address] [address] Chapito Alcantar, SILVIO Social History Tobacco Use [...] is agreeable to be listed on the [facility] transplant wait list. Reviewed HBV/HCV/acute risk organs with patient. They are agreeable toall offers. Patient lives 1.5-2 hours from [facility]. documented in this encounter Plan of Treatment Not on file documented as of this encounter Visit Diagnoses Not on filedocumented in this encounter Additional Health Concerns Assessment Noted Time PHQ-9 Depression Total Score: 8 09/10/20 11:09 AM EDT documented as of this encounter Care Teams Forging Dies Final Finisher Relationship Specialty Start Date End Date System, Provider Not In PCP - General 09/10/25 10/24/25 documented as of this encounter
--- OUTSIDE RECORDS SUMMARY | 2025-11-01 07:03 | XMS_ITS | Encounter Summary ---
Author Organization [facility] Address [address] [place] [address] Care Team Providers Care Police Officer Booking Name Role Phone System, Provider Not In [...] release of HIV test results or diagnoses. [id number] Health Encounter Details Date Type Department Care Team (Late st Contact Info) Description 10/19/2025 Education Chart Note [facility] Liver Transplant at [address] [address] Giovanna June, RN Social History Tobacco Use [...] any time in the past 12 m [facility], were you homeless or living in a fdc (including now)? No 10/17/2025 Utilities Answer Date Recorded In the past 12 months has th e [employer], gas, oil, or water [employer] threatened to shut off services in your [...] of Infection/Rejection [x] 5. When to call community health education coordinator [x] 6. Outpatient follow up including [...] No barriers to discharge identified. Medication times 0900/2100. Plans to use local pharmacy. Darvin Rivas. documented in this encounter Plan of Treatment Not on file documented as of this encounter Visit Diagnoses Not on filedocumented in this encounter Additional Health Concerns Assessment Noted Time PHQ-9 Depression Total Score: 8 09/10/20 11:09 AM EDT documented as of this encounter Care Teams Police Officer Booking Relationship Specialty Start Date End Date System, Provider Not In PCP - General 09/10/25 10/24/25 documented as of this encounter
--- OUTSIDE RECORDS SUMMARY | 2025-11-01 07:03 | XMS_ITS | Encounter Summary ---
Author Organization Healthcare Address [address] [place] [address] Care Team Providers Care Analytic Manager Name Role Phone Ruma Hernández METAL BASE BLOCKER Unavailable [phone] Chris Medel MD Primary Care Provider [phone] Encounter Details Date Type Department Care Team (Late st Contact Info) Description 08/01/2025 Results Follow-Up [facility] Transplant Center [address] [place] [address] Meaghan Le, RN [facility] LIVER [id number] [address] [place] [address] Social History Tobacco Use Types Packs/Day Years [...] week 02/19/2025 How often do you attend [facility] or mormon services? More than 4 times per year 02/19/2025 Do you belong to any clubs o r organizations such as adventist groups, unions, [employer] or athletic groups, or school groups? Yes [...] hard at all 06/15/2025 [facility] - Occupational Stress Questionnaire Answer [...] first t luisa in the morning (EYE-CUSTOMER ENGAGEMENT MANAGER) to steady your nerves or to get rid of a hangover? 0 06/14/2025 CAGE Questionnaire Score 0 025 Utilities Answer Date Recorded In the past 12 months has th e [employer], gas, oil, or water [employer] threatened to shut off services in your [...] [address] [facility], [address] [place] [address] Suhail Brock MD [address] [facility] [address] [place] [address] 01/24/2026 4:40 PM EDT Office Visit Professional [facility]eral Metabolism [address] [facility], [address] [place] [address] Moustapha Katz MD [address] [facility] [address] [place] [address] documented as of this encounter [...] documented as of this encounter Care Teams Analytic Manager Relationship Specialty [place] [address] PCP - General 03/14/25 Ruma Hernández APRN [address] [place], [place] [address] Referring Physician Gastroenterology 07/30/23 documented as of this encounter
--- OUTSIDE RECORDS SUMMARY | 2025-11-01 07:03 | XMS_ITS | Clinical Summary ---
Author Organization [facility] Address [address] [place] [address] Care Team Providers Care Monotypist Name Role Phone ToniUrban morataya DO Primary Care Provider [phone] Allergies Active Allergy Reactions Criticality Noted Date [...] Recently Relevant to Health Maintenance Insurance [facility] PPO Care Teams Monotypist Relationship Specialty Start Date End Date Urban Brantley DO [address] [place], [place] [id number] PCP - General Internal Medicine 03/22/23
--- OUTSIDE RECORDS SUMMARY | 2025-11-01 07:03 | XMS_ITS | Encounter Summary ---
Author Organization [facility] Address [address] [place] [address] Care Team Providers Care Door Builder Name Role Phone System, Provider Not [...] release of HIV test results or diagnoses. [id number] Health Encounter Details Date Type Department Care Team (Late st Contact Info) Description 09/21/2025 Refill [facility] at [facility] [address] [facility] [address] [address] [place] [address] Arturo Gibson, RN Social History Tobacco Use [...] documented as of this encounter Care Teams Door Builder Relationship Specialty Start Date End Date System, Provider Not In PCP - General 09/10/25 10/24/25 documented as of this encounter
--- OUTSIDE RECORDS SUMMARY | 2025-11-01 07:03 | XMS_ITS | Encounter Summary ---
Author Organization [facility] Address [address] [place] [address] Care Team Providers Care Application Counselor Name Role Phone System, Provider Not In [...] release of HIV test results or diagnoses. [id number] Health Encounter Details Date Type Department Care Team (Late st Contact Info) Description 09/25/2025 Chart Note [facility] Liver Transplant at [address] [address] Chapito Alcantar RN UNOS VERIFICATION CHECK FORM [...] Multidisciplinary Team documentation Initial Hepatology assessment aw shellfish bed worker within the last year aw Dietitian [...] nlc Physical Capacity nlc Working for Income [facility] Multidisciplinary Team documentation Initial Hepatology assessment nlc shellfish bed worker within the last year nlc Dietitian within the last year nlc Finance within the last year nlc Pharmacy within the last year nl Initial surgery assessment nlc RN coordinator EDU documentation nlc Book marked labs/pertinent data (Regulatory) [facility] documented in this encounter Plan of [...] as of this encounter Care Teams Application Counselor Relationship Specialty Start Date End Date System, Provider Not In PCP - General 09/10/25 10/24/25 documented as of this encounter
--- OUTSIDE RECORDS SUMMARY | 2025-11-01 07:03 | XMS_ITS | Encounter Summary ---
[facility] Organization [facility] Address [address] [place] [address] Care Team Providers Care It Disaster Recovery Manager Name Role Phone KaronUrban Hosea CAMARA Primary Care Provider [phone] Encounter Details Date Type Department Care Team (Late st Contact Info) Description 10/14/2023 Telephone [facility] GASTROENTEROLOGY [address] [facility] [address] [place] [address] Ruma Hernández, PROTECTIVE SIGNAL INSTALLER HELPER [address] [facility] [address] [place], [place] [id number] Social History Tobacco Use Types Packs/Day Years [...] on filedocumented in this encounter Care Teams It Disaster Recovery Manager Relationship Specialty Start Date End Date Urban Brantley DO [address] [place] [address] PCP - General Internal Medicine 03/22/23 documented as of this encounter
--- OUTSIDE RECORDS SUMMARY | 2025-11-01 07:03 | XMS_ITS | Encounter Summary ---
Author Organization [facility] Address [address] [place] [address] Care Team Providers Care Advertising Sales Manager Name Role Phone System, Provider Not [...] release of HIV test results or diagnoses. [id number] Health Encounter Details Date Type Department Care Team (Late st Contact Info) Description 09/20/2025 Chart Note [facility] Liver Transplant at [address] [address] Chapito Alcantar RN Spoke with patient's spouse [...] as of this encounter Care Teams Advertising Sales Manager Relationship Specialty Start Date End Date System, Provider Not In PCP - General 09/10/25 10/24/25 documented as of this encounter
--- OUTSIDE RECORDS SUMMARY | 2025-11-01 07:03 | XMS_ITS | Encounter Summary ---
Author Organization [facility] Address [address] [place] [address] Care Team Providers Care Wine Sales Representative Name Role Phone System, Provider Not [...] release of HIV test results or diagnoses. [id number] Health Encounter Details Date Type Department Care Team (Late st Contact Info) Description 09/20/2025 Telephone [facility] Liver Transplant at [address] [phone] Cori Dover MA Social History Tobacco Use [...] Dover MA - 09/20/2025 10:29 AM EST [facility] called to get patient scheduled for a follow up visit with Dr. Reaves. documented in this encounter Plan of Treatment Not on file documented as of this encounter Visit Diagnoses Not on filedocumented in this encounter Additional Health Concerns Assessment Noted Time PHQ-9 Depression Total Score: 8 09/10/20 11:09 AM EDT documented as of this encounter Care Teams Wine Sales Representative Relationship Specialty Start Date End Date System, Provider Not In PCP - General 09/10/25 10/24/25 documented as of this encounter
--- OUTSIDE RECORDS SUMMARY | 2025-11-01 07:03 | XMS_ITS | Encounter Summary ---
Author Organization [facility] Address [address] [place] [address] Care Team Providers Care Needle Valve Operator Name Role Phone System, Provider Not [...] release of HIV test results or diagnoses. [id number] Health Encounter Details Date Type Department Care Team (Late st Contact Info) Description 10/22/2025 Chart Note [facility] Liver Transplant at [address] [address] Cori Womack, PharmD Liver Transplant Pharmacy Discharge [...] living in a chcf (including now)? No 10/17/2025 Utilities Answer Date [...] been consistently below 30 since transplant and [facility] was held inpatient, the team decided on [...] a day with meals. Was on ergocalciferol [employer] DIVER but vitamin D level inpatient >20 furosemide [...] mouth every morning before breakfast. 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
--- OUTSIDE RECORDS SUMMARY | 2025-11-01 07:03 | XMS_ITS | Encounter Summary ---
Author Organization [facility] Address [address] [place] [address] Care Team Providers Care Transverse Abdominal Muscle Surgeon Name Role Phone Dr. Chris Medel MD [...] release of HIV test results or diagnoses. [id number] Reason for Visit * Reason Comments Results Encounter Details Date Type Department Care Team ([facility] Contact Info) Description 10/31/2025 Telephone [facility] Liver Transplant at [address] [address] Ruma Benjamin, SILVIO Results Social History Tobacco Use Types Packs/Day Years [...] encounter Miscellaneous Notes * Telephone Encounter - Ruma Benjamin RN - 10/31/2025 10:33 AM EST Lab results from 10/30/25 reviewed. Cr 0.90 (from 0.90); BUN 17 (from 13). AST 39 (from 55) ALT 88 (from 138) Alk Phos 281 (from 319) 13.0 FK level Current ISP: FK 5mg BID MMF 500mg BID Pred 20mg daily Lab results reviewed and are normal, unchanged, improving or without clinically significant abnormalities. Immunosuppression therapeutic per [facility] liver transplant guidelines or custom goal as documented in prior clinic visits. Will continue to monitor as per previously determined lab intervals. * Telephone Encounter - Ruma Benjamin RN - 10/31/2025 10:32 AM EST Lab results from 10/29/25 reviewed. Cr 0.90 (from 0.90); BUN 13 (from 16). AST 55 (from 41) ALT 138 (from 210) Alk Phos 319 (from 149) PENDING FK level Current ISP: FK 5mg BID MMF 500mg BID Pred 20mg daily documented in this encounter Plan of Treatment Not on file documented as of this encounter Visit Diagnoses Not on filedocumented in this encounter Additional Health Concerns Assessment Noted Time PHQ-9 Depression Total Score: 8 09/10/20 11:09 AM EDT documented as of this encounter Care Teams Transverse Abdominal Muscle Surgeon Relationship Specialty Start Date End Date Dr. Chris Medel MD [address] [place] [address] PCP - General Primary Care 10/25/25 documented as of this encounter
--- OUTSIDE RECORDS SUMMARY | 2025-11-01 07:03 | XMS_ITS | Encounter Summary ---
Author Organization [facility] Address [address] [place] [address] Care Team Providers Care Disaster Recovery Analyst Name Role Phone System, Provider Not [...] release of HIV test results or diagnoses. [id number] Health Encounter Details Date Type Department Care Team (Late st Contact Info) Description 10/03/2025 Telephone [facility] Liver Transplant at [address] [address] Pb Sy, RN Social History Tobacco Use [...] well as Bed Board, OR Charge, Nursing Copy Manager, blood bank and Sicu charge. documented in this encounter Plan of Treatment Not on file documented as of this encounter Visit Diagnoses Not on filedocumented in this encounter Additional Health Concerns Assessment Noted Time PHQ-9 Depression Total Score: 8 09/10/20 11:09 AM EDT documented as of this encounter Care Teams Disaster Recovery Analyst Relationship Specialty Start Date End Date System, Provider Not In PCP - General 09/10/25 10/24/25 documented as of this encounter
--- OUTSIDE RECORDS SUMMARY | 2025-11-01 07:03 | XMS_ITS ---
Author Organization Unknown ENCOUNTERS Encounter Performer Location Date Diagnosis Diagnosis Status Inpatient [place] [address] [place] [address] [id number] [facility] [address] [place] [address] [id number] Emergency [place] [address] [place] [address] [id number] A Pre Admit [address] [place] [address] [id number] Pre Admit [address] [place] [address] [id number] Emergency [place] [address] [place] [address] [id number] [facility] *Note: Encounters from your own facility or health system may be excluded. Allergies, Adverse Reactions, Alerts Allergen Type Severity Identification Date lisinopril drug allergy 1 [id number] atorvastatin drug allergy 3 [id number] Medications Name Date Quantity Days Supplied GPI Number
--- OUTSIDE RECORDS SUMMARY | 2025-11-01 07:03 | XMS_ITS | Encounter Summary ---
Author Organization [facility] Address [address] [place] [address] Care Team Providers Care Optical Laboratory Mechanic Name Role Phone System, Provider Not [...] release of HIV test results or diagnoses. [id number] Health Encounter Details Date Type Department Care Team (Late st Contact Info) Description 10/23/2025 Orders Only [facility] Liver Transplant at [address] [phone] Giovanna June, RN Liver replaced by transplant ([facility]) (Primary Dx) Social History Tobacco Use Types [...] Associated Diagnoses Orde r Schedule US Duplex Yip-Efk-Xaowsbx Comp Imaging Routine Liver replaced by transplant [...] documented as of this encounter Care Teams Optical Laboratory Mechanic Relationship Specialty Start Date End Date System, Provider Not In PCP - General 09/10/25 10/24/25 documented as of this encounter
--- OUTSIDE RECORDS SUMMARY | 2025-11-01 07:03 | XMS_ITS | Encounter Summary ---
Author Organization [facility] Address [address] [place] [address] Care Team Providers Care Die Cleaner Name Role Phone System, Provider Not [...] release of HIV test results or diagnoses. [id number] Reason for Visit * Reason Comments Appointment Encounter Details Date Type Department Care Team (Late st Contact Info) Description 10/03/2025 Telephone [facility] Liver Transplant at [address] [address] Pb Sy, RN Appointment Social History Tobacco [...] need to bring equipment or solution to [facility]. They will get supplies from dialysis [...] Notifications: Department Phone Comments Time/Name Capacity Management [phone] Notified of patient's pending TXP ORGANS:LIVER Time:1130 Spoke to:ANASTASIIA HERNANDEZ [phone] OR scheduled for: per Dr. WINKLER Recipient in the OR time 10/03 Acute donor Risk (according to OPTN policy)NO (HCV, HBV, HIV, COVID) Notified Donor is DCD Heart using [employer] N/A Time:113 OR home health clinician:AVANI LUGO ORGAN Time:104 BLOOD BANK [phone] For Liver and Heart only 113 [facility] Nursing Conveyor Belt Installer [phone] For delayed call in [email or web address] PACU or Sameday [phone] Delayed call in: If recipient OR is 2 hrs or less from admission, call PACU/Sameday (basedon where nursing detasseling crew supervisor assigns patient) DELAYED CALL IN Abdominal Transplant 8CCP [phone] Transfer of care reported for abdominal txp Notified of dialysis type and last session if applicable Time:DELAYED CALL IN 8CCP home health clinician: SICU [phone] Notify about abdominal txp admissions Time:1150 SICU home health clinician:SHILOH Transplant Surgery Resident/LAISHA Wyatt PAGED@[phone] Time:1156 Spoke to:DR CHRISTIANSON Transplant Surgery Fellow QKhoa Time:1156 Spoke to:DR RUSSELL Transplant Research Team [phone] LEFT MESSAGE @2821 Time:1157 Spoke to: If applicable, Dialysis Unit EMR Time:N/A Spoke to: Pharmacy IV Room [phone] Liver Only Contact pharmacy to alert that HBIG will be needed when all the following are present: Donor: *HBsAg negative *HBV DNA/NII negative Recipient: *HBsAg positive *HBV DNA is detectable on most recent check Time:N/A Spoke to: Heart Transplant CVICU [phone] Transfer of care reported for heart txp Time:N/A CVICU home health clinician: Email notification to Transplant Team(s) and OR home health clinician. Received notification for potential Liver transplant for David Pop, 1960. Recipient Info: David Pop 1960 ABO: A CMV: NEGATIVE EBV: POSITIVE HepBsAb: POSITIVE Referring MD: Dr. Portia Maguire. Surgeon: Dr. PETERSON Dai ETA: DELAYED CALL IN OR time and date: 10/03 CRRT needed in OR: NO Venoveno bypass: NO Donor info: Donor ID: [id number] Match ID: [id number] Anti-HBc: Negative HBV NII: Negative HBsAg: Negative [...] documented as of this encounter Care Teams Die Cleaner Relationship Specialty Start Date End Date System, Provider Not In PCP - General 09/10/25 10/24/25 documented as of this encounter
--- OUTSIDE RECORDS SUMMARY | 2025-11-01 07:03 | XMS_ITS | Encounter Summary ---
Author Organization [facility] Address [address] [place] [address] Care Team Providers Care Yacht Master Name Role Phone System, Provider Not In [...] release of HIV test results or diagnoses. [id number] Health Encounter Details Date Type Department Care Team (Late st Contact Info) Description 10/22/2025 Orders Only [facility] Liver Transplant at [address] [phone] Ruma Benjamin, SILVIO S/P liver transplant ([facility]) (Primary Dx); Immunosuppression ([facility]) Social History Tobacco Use Types Packs/Day [...] weekly for 120 Occurrences starting 10/22/2025 until 04/22/2027, 1 completed Renal Function Panel w/EGFR Lab Routine S/P liver transplant (CMS-HCC) Immunosuppression (CMS-HCC) twice weekly for 120 Occurrences starting 10/22/2025 until 04/22/2027, 1 completed CBC Lab Routine S/P liver transplant (CMS-HCC) Immunosuppression (CMS-HCC) twice weekly for 120 Occurrences starting 10/22/2025 until 04/22/2027, 1 completed Differential Lab Routine S/P liver transplant (CMS-HCC) Immunosuppression (CMS-HCC) twice weekly for 120 Occurrences starting 10/22/2025 until 04/22/2027, 1 completed Tacrolimus level Lab Routine S/P liver transplant ([facility]) Immunosuppression ([facility]) twice weekly for 120 Occurrences starting 10/22/2025 until 04/22/2027, 1 completed documented as of this encounter Results * Tacrolimus level (10/30/2025 8:07 AM EST) Tacrolimus (LC-MS) 13.0 3.0 - 15.0 ng/mL 10/30/2025 3:02 PM EST [facility] Comment:Performed via liquid chromatography tandem mass spectrometry. Detection limit: 1 ng/mL. Individual target concentrations may vary due to target organ and time after transplant. This test has been developed and its performance characteristics determined by [facility] which is certified under the [...] AM EST 10/30/2025 9:12 AM EST Narrative [facility] - 10/30/2025 3:02 PM EST Standing liver transplant labs. Please fax results to [phone]. Call critical results to [phone]. us Felice Nugent III, MD LAB BLOOD ORDERABLE S Final Result [facility] [address] [place], [place] [address] * (ABNORMAL) Differential (10/30/2025 8:07 AM EST) Neutrophils Relative 79.6 40.0 - 80.0 % 10/30/2025 9:26 AM EST [facility] Lymphocytes Relative 6.3(L) 15.0 - 45.0 % 10/30/2025 9:26 AM EST [facility] Monocytes Relative 9.8 0.0 - 12.0 % 10/30/2025 9:26 AM EST [facility] Eosinophils Relative 3.4 0.0 - 8.0 % 10/30/2025 9:26 AM EST [facility] Basophils Relative 0.9 0.0 - 1.0 % 10/30/2025 9:26 AM EST [facility] nRBC 0 0 - 0 /100 WBC 10/30/2025 9:26 AM EST [facility] Neutrophils Absolute 6,209 1,520 - 8,640 /uL 10/30/2025 9:26 AM EST [facility] Lymphocytes Absolute 491(L) 570 - 4,860 /uL 10/30/2025 9:26 AM EST [facility] Monocytes Absolute 764 0 - 1,296 /uL 10/30/2025 9:26 AM EST [facility] Eosinophils Absolute 265 0 - 864 /uL 10/30/2025 9:26 AM EST [facility] Basophils Absolute 70 0 - 108 /uL 10/30/2025 9:26 AM EST [facility] Whole Blood 10/30/2025 8:07 AM EST 10/30/2025 9:11 AM EST [facility] - 10/30/2025 9:26 AM EST [facility] liver transplant labs. Please fax results to [phone]. Call critical results to [phone]. us Felice Nugent III, MD LAB BLOOD ORDERABLE S Final Result [facility] [address] [place] [address], [facility] * (ABNORMAL) CBC (10/30/2025 8:07 AM EST) WBC 7.8 3.8 - 10.8 10E3/uL 10/30/2025 9:26 AM EST [facility] RBC 2.67(L) 4.20 - 5.80 10E6/uL 10/30/2025 9:26 AM EST [facility] Hemoglobin 10.1(L) 13.2 - 17.1 g/dL 10/30/2025 9:26 AM EST [facility] Hematocrit 27.2(L) 38.5 - 50.0 % 10/30/2025 9:26 AM EST [facility] MCV 101.7(H) 80.0 - 100.0 fL 10/30/2025 9:26 AM EST [facility] MCH 37.8(H) 27.0 - 33.0 pg 10/30/2025 9:26 AM EST [facility] MCHC 37.1(H) 32.0 - 36.0 g/dL 10/30/2025 9:26 AM EST [facility] RDW 17.4(H) 11.0 - 15.0 % 10/30/2025 9:26 AM EST [facility] Platelets 159 140 - 400 10E3/uL 10/30/2025 9:26 AM EST [facility] MPV 8.5 7.5 - 11.5 fL 10/30/2025 9:26 AM EST [facility] Whole Blood 10/30/2025 8:07 AM EST 10/30/2025 9:11 AM EST Narrative [facility] - 10/30/2025 9:26 AM EST [facility] liver transplant labs. Please fax results to [phone]. Call critical results to [phone]. us Felice Nugent III, MD LAB BLOOD ORDERABLE S Final Result [facility] [address] [place] [address], [facility] * (ABNORMAL) Renal Function Panel w/EGFR (10/30/2025 8:07 AM EST) Sodium 138 133 - 146 mmol/L 10/30/2025 10:12 AM EST [facility] Potassium 4.5 3.5 - 5.3 mmol/L 10/30/2025 10:12 AM EST [facility] Chloride 101 98 - 110 mmol/L 10/30/2025 10:12 AM EST [facility] CO2 29 21 - 33 mmol/L 10/30/2025 10:12 AM EST [facility] Comment:High lactate dehydro genase concentrations in patient samples may cause falsely increased bicarbonate results. If markedly elevated LDH is observed or suspected, please assess results in conjunction with patient`s clinical presentation. In cases of discrepant results, consider evaluating CO2 in with a blood gas order. Anion Gap 8 3 - 16 mmol/L 10/30/2025 10:[address] [facility] BUN 17 7 - 25 mg/dL 10/30/2025 10:[address] [facility] Creatinine 0.90 0.60 - 1.30 mg/dL 10/30/2025 10:[address] [facility] Glucose 124(H) 70 - 100 mg/dL 10/30/2025 10:[address] [facility] Calcium 7.9(L) 8.6 - 10.3 mg/dL 10/30/2025 10:[address] [facility] Phosphorus 3.9 2.1 - 4.7 mg/dL 10/30/2025 10:[address] [facility] Albumin 2.9(L) 3.5 - 5.7 g/dL 10/30/2025 10:[address] [facility] Osmolality, Calculated 289 278 - 305 mOsm/kg 10/30/2025 10:[address] [facility] EGFR >90 10/30/2025 10:[address] [facility] Comment: As of 2022, the [...] 8:07 AM EST 10/30/2025 9:12 AM EST [facility] - 10/30/2025 10:12 AM EST Standing liver transplant labs. Please fax results to [phone]. Call critical results to [phone]. Felice Nugent III, MD LAB BLOOD ORDERABLE S Final Result [facility] [address] [facility]. [address] * (ABNORMAL) Hepatic Function Panel (10/30/2025 8:07 AM EST) Total Bilirubin 2.4(H) 0.0 - 1.5 mg/dL 10/30/2025 10:12 AM EST [facility] Bilirubin, Direct 1.36(H) 0.00 - 0.40 mg/dL 10/30/2025 10:12 AM EST [facility] AST 39 13 - 39 U/L 10/30/2025 10:12 AM EST [facility] ALT 88(H) 7 - 52 U/L 10/30/2025 10:12 AM EST [facility] Alkaline Phosphatase 281(H) 36 - 125 U/L 10/30/2025 10:12 AM EST [facility] Total Protein 5.9(L) 6.4 - 8.9 g/dL 10/30/2025 10:12 AM EST [facility] Albumin 2.9(L) 3.5 - 5.7 g/dL 10/30/2025 10:12 AM EST [facility] Bilirubin, Indirect 1.04 0.00 - 1.10 mg/dL 10/30/2025 10:12 AM EST [facility] Plasma 10/30/2025 8:07 AM EST 10/30/2025 9:12 AM EST Narrative [facility]ALTH [facility] - 10/30/2025 10:12 AM EST Standing liver transplant labs. Please fax results to [phone]. Call critical results to [phone]. Felice Nugent III, MD LAB BLOOD ORDERABLE S Final Result [facility] [address] [place] [address], [facility] documented in this encounter Visit Diagnoses Diagnosis S/P liver transplant ([facility])- Primary Immunosuppression (CMS-HCC) documented in this encounter Additional Health Concerns Assessment Noted Time PHQ-9 Depression Total Score: 8 09/10/20 11:09 AM EDT documented as of this encounter Care Teams Yacht Master Relationship Specialty Start Date End Date System, Provider Not In PCP - General 09/10/25 10/24/25 documented as of this encounter
--- OUTSIDE RECORDS SUMMARY | 2025-11-01 07:03 | XMS_ITS | Clinical Summary ---
Author Organization [facility] Address [address] [place] [address] Care Team Providers Care Stud Sheep Farmer Name Role Phone Ruma Hernández OPERATING SYSTEM PROGRAMMER Unavailable [phone] Chris Medel MD Primary Care Provider [phone] Allergies Active Allergy Reactions Criticality Noted Date Comments Lisinopril Cough Low 09/15/2021 Medications carvedilol (Coreg) 3.125 MG tabletIndicatio ns:Cirrhosis of liver with ascites, unspecified hepatic cirrhosis type Take 1 tablet (3.125 mg) by mouth 2 (two) times a day with meals. 60 tablet 11 09/13/20 24 Active ergocalciferol (Vitamin D-2) 1.25 MG (57862 UT) capsule Take 1 capsule by mouth [...] Department Care Team Description 10/16/2025 Results Follow-Up [facility] Transplant Center [address] [place] [address] Meaghan Le RN 10/15/2025 Telephone [facility] [address] [facility], [address] [place] [address] Moustapha Katz MD HCN - Patient Message 10/09/2025 Results Follow-Up [facility] Transplant [facility] [address] [place] [address] Meaghan Le RN 10/08/2025 Orders Only [facility] Medicine Specialties [address] [place] [address] Provider, Historical 10/02/2025 Refill [facility] Trans[facility] [address] [place] [address] Portia Maguire MD Pre-liver transplant, listed (Primary Dx); End-stage liver disease (CMS/HCC) 09/12/2025 10:00 AM EDT Office Visit [facility] [place] [address] Portia Maguire MD Pre-liver transplant, listed [...] S Radiology [address], 1st [place] [address] Pre-liver transplant, listed Discharge Disposition: Home or Self Care 09/12/2025 Results Follow-Up [place] [id number] [place] [address] Meaghan Le RN 09/12/2025 Travel 09/11/2025 Travel 09/05/2025 Orders Only [facility] Transplant [place] [address] [place] [address] Meaghan Le RN Pre-liver transplant, listed (Primary Dx) 08/31/2025 Results Follow-Up [place] [address] [place] [address] Meaghan Le RN 08/29/2025 Orders Only [facility] Medicine Specialties [address] [place] [address] Provider, Historical 08/20/2025 Results Follow-Up [facility] Trans[facility] Center [address] [place] [address] Meaghan Le RN from Last 3 Months [...] medical care at [facility]? More than 4 times [...] and heating? Not hard at all 06/15/2025 [facility] [place] [facility] Occupat ional Health - Occupational Stress [...] any time in the past 12 m [facility], were you homeless or living [...] drink first t luisa in the morning ([employer]) to steady your nerves or to get [...] [facility], [address] [place] [address] Suhail Brock MD [address] [place] [address] 01/24/2026 4:40 PM EDT Office Visit [employer] [facility] [address] [facility], [address] [place] [address] Moustapha Katz MD [address] [facility] [address] [place] [address] Health Maintenance Due Date Last Done Comments [facility]-/Child/Adol SDOH Screenings 1960 [id number] Vaccine (#1) 1960 [facility]-Hepatitis A Vaccines (1 [...] 08/15/2025 PROTHROMBIN TIME(PT) / INR Routine 08/15/2025 HEPATITIS C ANTIBODY W/REFLEX TO HCV QUANT [...] 10:14 AM EST) Only the most recent of7 resultswithin the time period is included. Blood Venous blood specimen / Unknown Result [facility] Provider LAB BLOOD ORDERABLES Final R esult * CBC and Differential (10/08/2025 10:14 AM EST) Only the most recent of2 resultswithin the time period is included. Blood Venous blood specimen / Unknown Result [facility] Provider LAB BLOOD ORDERABLES Final R esult * CBC W/O Differential (10/08/2025) Only the most recent of5 resultswithin the time period is included. External WBC 3.3 External Red Blood Cell (RBC) 3.23 External Hemoglobin (Hgb) 10.80 External Hematocrit (Hct) 32.6 External Platelet Count (Plt) 71 Blood Venous blood specimen / Unknown 10/08/2025 Result [facility] LAB BLOOD ORDERABLES Final R esult * Comprehensive Metabolic Panel, Plasma (10/08/2025) Only the most recent of5 resultswithin the time period is included. External [...] Venous blood specimen / Unknown 10/08/2025 Result [facility] LAB BLOOD ORDERABLES Final R esult * [...] are consistent with and integrated into the [employer] of Liver Diseases [...] using the following sequences: coronal single shot [id number] fast spin echo, axial T2 weighted sequences [...] are consistent with and integrated into the [employer] Associationfor the Study of Liver Diseases (AASLD) [...] Maguire MD IM MRI PROCEDURES Final Result * Pain Management, Quantitative Urine Drug Testing (09/12/2025 7:55 AM EDT) Alpha [place] Alprazolam <20 <20 ng/mL 09/14 7:16 AM EDT [facility] Alpha OH Midazolam <20 <20 ng/mL 2024 7:16 AM EDT [facility] Alpha OH Triazolam <20 <20 ng/mL 2024 7:16 AM EDT [facility] Alprazolam <10 <10 ng/mL 09/14/2025 7:16 AM EDT [facility] Aminoclonazepam <20 <20 ng/mL 7:16 AM EDT [facility] Amphetamine <50 <50 ng/mL 09/14/2025 7:16 AM EDT [facility] Benzoylecgonine <50 <50 ng/mL 7:16 AM EDT [facility] Buprenorphine <10 <10 ng/mL 09/14/2025 7:16 AM EDT [facility] Buprenorphine Glucuronide <50 <50 ng/mL 09/14/2025 7:16 AM EDT [facility] Butalbital <50 <50 ng/mL 09/14/2025 7:16 AM EDT [facility] 9 Carboxy THC <10 <10 ng/mL 09/14/2025 7:16 AM EDT [facility] 9 Carboxy THC Glucuronide <25 <25 ng/mL 09/14/2025 7:16 AM EDT [facility] Clonazepam <10 <10 ng/mL 09/14/2025 7:16 AM EDT [facility] Codeine <50 <50 ng/mL 09/14/2025 7:16 AM EDT [facility] Codeine Glucuronide <50 <50 ng/mL 09/14 7:16 AM EDT [facility] Cyclobenzaprine <50 <50 ng/mL 7:16 AM EDT [facility] Desmethyl Tramadol <50 <50 ng/mL 2024 7:16 AM EDT [facility] Diazepam <10 <10 ng/mL 09/14/2025 7:16 AM EDT [facility] EDDP - Methadone Metabolite <50 <50 ng/mL 09/14/2025 7:16 AM EDT [facility] Fentanyl <1 <1 ng/mL 09/14/2025 7:16 AM EDT [facility] Hydrocodone <50 <50 ng/mL 09/14/2025 7:16 AM EDT [facility] Hydromorphone <50 <50 ng/mL 09/14/2025 7:16 AM EDT [facility] Hydromorphone Glucuronide <50 <50 ng/mL 09/14/2025 7:16 AM EDT [facility] Lorazepam <20 <20 ng/mL 09/14/2025 7:16 AM EDT [facility] Lorazepam Glucuronide <50 <50 ng/mL 09/14/2025 7:16 AM EDT [facility] MDA <50 <50 ng/mL 09/14/2025 7:16 AM EDT [facility] MDMA <50 <50 ng/mL 09/14/2025 7:16 AM EDT [facility] Meperidine <50 <50 ng/mL 09/14/2025 7:16 AM EDT [facility] Methadone <50 <50 ng/mL 09/14/2025 7:16 AM EDT [facility] Methamphetamine <50 <50 ng/mL 7:16 AM EDT [facility] Methylphenidate <50 <50 ng/mL 7:16 AM EDT [facility] 6 Monoacetyl morphine <10 <10 ng/mL 09/14/2025 7:16 AM EDT [facility] Morphine <50 <50 ng/mL 09/14/2025 7:16 AM EDT [facility] Morphine Glucuronide <50 <50 ng/mL 08/17 7:16 AM EDT [facility] Naloxone <50 <50 ng/mL 09/14/2025 7:16 AM EDT [facility] Naloxone Glucuronide <50 <50 ng/mL 08/17 7:16 AM EDT [facility] Norbuprenorphine <10 <10 ng/mL 09/14/20 7:16 AM EDT [facility] Norbuprenorphine Glucuronide <50 <50 ng/mL 09/14/2025 7:16 AM EDT [facility] Nordiazepam <20 <20 ng/mL 09/14/2025 7:16 AM EDT [facility] Norfentanyl <2 <2 ng/mL 09/14/2025 7:16 AM EDT [facility] Normeperidine <50 <50 ng/mL 09/14/2025 7:16 AM EDT [facility] PCP Quant, Ur <50 <50 ng/mL 09/14/2025 7:16 AM EDT [facility] Phenobarbital <50 <50 ng/mL 09/14/2025 7:16 AM EDT [facility] Oxazepam <20 <20 ng/mL 09/14/2025 7:16 AM EDT [facility] Oxazepam Glucuronide <50 <50 ng/mL 08/17 7:16 AM EDT [facility] Oxycodone <50 <50 ng/mL 09/14/2025 7:16 AM EDT [facility] Oxymorphone <50 <50 ng/mL 09/14/2025 7:16 AM EDT [facility] Oxymorphone Glucuronide <50 <50 ng/mL 09/14/2025 7:16 AM EDT [facility] Secobarbital <50 <50 ng/mL 09/14/2025 7:16 AM EDT [facility] Tramadol <50 <50 ng/mL 09/14/2025 7:16 AM EDT [facility] Temazepam <20 <20 ng/mL 09/14/2025 7:16 AM EDT [facility] Temazepam Glucuronide <50 <50 ng/mL 09/14/2025 7:16 AM EDT [facility] Urine Urine specimen obtained by clean catch procedure / Unknown Non-blood Collection / Unknown 09/12/2025 7:55 AM EDT 09/12/2025 8:51 AM EDT Narrative [facility] - 09/14/2025 7:16 AM [...] developed and its performance characteristics determined by [facility]. It has not been cleared or approved by the FDA. The laboratory is regulated under CLIA as qualified to perform high-complexity testing. This test is used for clinical purposes. Portia Maguire MD LAB URINE ORDERABLES Nadia l Result Performing Organization Address [facility] Co de Phone Number [facility] [address] [place] [address] * Alpha Fetoprotein, Serum (09/12/2025 7:55 AM EDT) Alpha Fetoprotein, Serum <2.3 <10.0 ng/mL 09/12/2025 10:18 AM EDT [facility] Blood Venous blood specimen / Unknown Venipuncture / Unknown 09/12/2025 7:55 AM EDT 09/12/2025 8:46 AM EDT Narrative [facility] - 09/12/2025 10:18 AM EDT Performed by [employer] electrochemiluminescent immunoassay which is traceable to the [address] [place] [address] IRP WHO Reference standard 72/255. Results obtained with different test methods or kits cannot be used interchangeably. Portia Maguire MD LAB BLOOD ORDERABLES Nadia l Result Performing Organization Address [facility] de Phone Number [facility] [address] [place] [address] * Nicotine Cotinine Metabolite (09/12/2025 7:55 AM EDT) NICOTINE <5 <5 ng/mL 09/14/2025 10:24 AM EDT [facility] Cotinine <5 <5 ng/mL 09/14/2025 10:24 AM EDT [facility] Blood Venous blood specimen / Unknown Venipuncture / Unknown 09/12/2025 7:55 AM EDT 09/12/2025 8:46 AM EDT Narrative [facility] - 09/14/2025 10:24 AM EDT Testing performed by LC-MS/MS at the [facility] Special [facility]/Toxicology Laboratory. This test was developed and its performance characteristics determined by [facility]. This assay has not been cleared by the FDA. The laboratory is regulated under CLIA as qualified to perform high-complexity testing. This test is used for clinical purposes. Portia Maguire MD LAB BLOOD ORDERABLES Nadia l Result Performing Organization Address [facility] Co de Phone Number [facility] [address] [place] [address] * Alcohol Urine (09/12/2025 7:55 AM EDT) Alcohol Urine Negative Negative 09/12/2025 1:41 PM EDT [facility] Urine Urine specimen obtained by clean catch procedure / Unknown Non-blood Collection / Unknown 09/12/2025 7:55 AM EDT 09/12/2025 8:51 AM EDT Narrative [facility] - 09/12/2025 1:41 PM EDT The correlation between urine and serum ethanol concentration is highly variable. Test performed by Gas Chromatography at the [facility]. This test was developed and its performance characteristics determined by [facility]. It has not been cleared or approved by the FDA.The laboratory is regulated under CLIA as qualified to perform high-complexity testing. This test is used for clinical purposes only. The correlation between urine and serum ethanol concentration is highly variable. Test performed by Gas Chromatography at the [facility] Chemistry [facility]. This test was developed and its performance characteristics determined by [facility]. It has not been cleared or approved by the FDA.The laboratory is regulated under CLIA as qualified to perform high-complexity testing. This test is used for clinical purposes only. Portia Maguire MD LAB URINE ORDERABLES Nadia l Result Performing Organization Address City/[facility]/ZIP Co de Phone Number [facility] [address] [place] [address] * Comprehensive Urine Drug Screening, Qualitative Assay, >= 27 Drug Classes (09/12/2025 7:55 AM EDT) Acetaminophen Negative Negative 09/16/2025 3:50 AM EST [facility] Alprazolam Negative Negative 09/16/2025 3:50 AM EST [facility] Amantadine Negative Negative 09/16/2025 3:50 AM EST [facility] Amitriptyline Negative Negative 09/16/2025 3:50 AM EST [facility] Amphetamine Negative Negative 09/16/2025 3:50 AM EST [facility] Atenolol Negative Negative 09/16/2025 3:50 AM EST [facility] Benzoylecgonine Negative Negative 3:50 AM EST [facility] Bisoprolol Negative Negative 09/16/2025 3:50 AM EST [facility] Bupropion Negative Negative 09/16/2025 3:50 AM EST [facility] Butalbital Negative Negative 09/16/2025 3:50 AM EST [facility] Carbamazepine Negative Negative 09/16/2025 3:50 AM EST [facility] Carisoprodol Negative Negative 09/16/2025 3:50 AM EST [facility] Chlorpheniramine Negative Negative 09/16/20 3:50 AM EST [facility] Citalopram Negative Negative 09/16/2025 3:50 AM EST [facility] Clindamycin Negative Negative 09/16/2025 3:50 AM EST [facility] Clonidine Negative Negative 09/16/2025 3:50 AM EST [facility] Clopidogrel / Ticlopidine Negative Negative 09/16/2025 3:50 AM EST [facility] Cocaethylene Negative Negative 09/16/2025 3:50 AM EST [facility] Cocaine Negative Negative 09/16/2025 3:50 AM EST [facility] Codeine Negative Negative 09/16/2025 3:50 AM EST [facility] Cyclobenzaprine Negative Negative 3:50 AM EST [facility] Desvenlafaxine Negative Negative 09/16/2025 3:50 AM EST [facility] Dextromethorphan Negative Negative 09/16/20 3:50 AM EST [facility] Diazepam Negative Negative 09/16/2025 3:50 AM EST [facility] Diltiazem Negative Negative 09/16/2025 3:50 AM EST [facility] Diphenhydramine Negative Negative 3:50 AM EST [facility] Doxepine Negative Negative 09/16/2025 3:50 AM EST [facility] Doxylamine Negative Negative 09/16/2025 3:50 AM EST [facility] EDDP-Methadone metabolite Negative Negative 09/16/2025 3:50 AM EST [facility] Fentanyl Negative Negative 09/16/2025 3:50 AM EST [facility] Fluconazole Negative Negative 09/16/2025 3:50 AM EST [facility] Fluoxetine Negative Negative 09/16/2025 3:50 AM EST [facility] Guaifenesin Negative Negative 09/16/2025 3:50 AM EST [facility] Haloperidol Negative Negative 09/16/2025 3:50 AM EST [facility] Heroin/6-MARY Negative Negative 09/16/2025 3:50 AM EST [facility] Hydrocodone Negative Negative 09/16/2025 3:50 AM EST [facility] Hydroxyzine / Cetirizine metabolite Negative Negative 09/16/2025 3:50 AM EST [facility] Ibuprofen Negative Negative 09/16/2025 3:50 AM EST [facility] Imipramine Negative Negative 09/16/2025 3:50 AM EST [facility] Ketamine Negative Negative 09/16/2025 3:50 AM EST [facility] Labetolol Negative Negative 09/16/2025 3:50 AM EST [facility] Lamotrigine Negative Negative 09/16/2025 3:50 AM EST [facility] Levetiracetam Negative Negative 09/16/2025 3:50 AM EST [facility] Lidocaine Negative Negative 09/16/2025 3:50 AM EST [facility] MDA Negative Negative 09/16/2025 3:50 AM EST [facility] MDMA Negative Negative 09/16/2025 3:50 AM EST [facility] Memantine Negative Negative 09/16/2025 3:50 AM EST [facility] Meperidine Negative Negative 09/16/2025 3:50 AM EST [facility] Meprobamate Negative Negative 09/16/2025 3:50 AM EST [facility] Metaxalone Negative Negative 09/16/2025 3:50 AM EST [facility] Methamphetamine Negative Negative 3:50 AM EST [facility] Methocarbamol Negative Negative 09/16/2025 3:50 AM EST [facility] Methylecgonine Negative Negative 09/16/2025 3:50 AM EST [facility] Metoclopramide Negative Negative 09/16/2025 3:50 AM EST [facility] Metoprolol Negative Negative 09/16/2025 3:50 AM EST [facility] Metronidazole Negative Negative 09/16/2025 3:50 AM EST [facility] Midazolam Negative Negative 09/16/2025 3:50 AM EST [facility] Midazolam Metabolite Negative Negative 12/2024 3:50 AM EST [facility] Mirtazapine Negative Negative 09/16/2025 3:50 AM EST [facility] Misc Test Result Negative Negative 09/16/20 3:50 AM EST [facility] Naproxen Negative Negative 09/16/2025 3:50 AM EST [facility] Nefazodone Negative Negative 09/16/2025 3:50 AM EST [facility] Norfentanyl Negative Negative 09/16/2025 3:50 AM EST [facility] Nortriptyline Negative Negative 09/16/2025 3:50 AM EST [facility] Ordanstron Negative Negative 09/16/2025 3:50 AM EST [facility] Oxcarbazepine Negative Negative 09/16/2025 3:50 AM EST [facility] Oxycodone Negative Negative 09/16/2025 3:50 AM EST [facility] Paroxethine Negative Negative 09/16/2025 3:50 AM EST [facility] Phenobarbital Negative Negative 09/16/2025 3:50 AM EST [facility] Phentermine Negative Negative 09/16/2025 3:50 AM EST [facility] Phenytoin Negative Negative 09/16/2025 3:50 AM EST [facility] Primidone Negative Negative 09/16/2025 3:50 AM EST [facility] Promethazine Negative Negative 09/16/2025 3:50 AM EST [facility] Propofol Negative Negative 09/16/2025 3:50 AM EST [facility] Propranolol Negative Negative 09/16/2025 3:50 AM EST [facility] Quetiapine Negative Negative 09/16/2025 3:50 AM EST [facility] Quinine Negative Negative 09/16/2025 3:50 AM EST [facility] Rantidine Negative Negative 09/16/2025 3:50 AM EST [facility] Sertraline Negative Negative 09/16/2025 3:50 AM EST [facility] Spironolactone Negative Negative 09/16/2025 3:50 AM EST [facility] Tizanidine Negative Negative 09/16/2025 3:50 AM EST [facility] Topiramate Negative Negative 09/16/2025 3:50 AM EST [facility] Tramadol Negative Negative 09/16/2025 3:50 AM EST [facility] Trazadone/ Trazadone metabolite Negative Negative 09/16/2025 3:50 AM EST [facility] Trimethoprim Negative Negative 09/16/2025 3:50 AM EST [facility] Valproic Acid Negative Negative 09/16/2025 3:50 AM EST [facility] Venlafaxine Negative Negative 09/16/2025 3:50 AM EST [facility] Verapamil Negative Negative 09/16/2025 3:50 AM EST [facility] Zolpidem Negative Negative 09/16/2025 3:50 AM EST [facility] Xylazine Negative Negative 09/16/2025 3:50 AM EST [facility] Urine Urine specimen obtained by clean catch procedure / Unknown Non-blood Collection / Unknown 09/12/2025 7:55 AM EDT 09/12/2025 8:51 AM EDT us Portia Maguire MD LAB URINE ORDERABLES Nadia crockett Result [facility] [address] [place] [address] * HIV 1 & 2 Antibody/Antigen Screen (06/14/2025 6:31 PM EDT) HIV 1 & 2 Antibody/Antigen Screen Non Reactive Non Reactive 06/14/2025 7:45 PM EDT [facility] Comment:Screening for HIV 1 & 2 antibodies, and P24 antigen is NONREACTIVE. No confirmatory testing is required. Blood Venous blood specimen / Unknown Venipuncture / Unknown 06/14/2025 6:31 PM EDT 06/14/2025 7:05 PM EDT us Luis Angel Bee MD LAB BLOOD ORDERABLES Nadia l Result Performing Organization Address [facility] Co de Phone Number [facility] [address] [place] [address] * Hepatitis C Antibody (06/14/2025 6:31 PM EDT) [facility] Hepatitis C Antibody Negative Negative 06/14/2025 7:45 PM EDT [facility] Blood Venous blood specimen / Unknown Venipuncture / Unknown 06/14/2025 6:31 PM EDT 06/14/2025 7:05 PM EDT us Luis Angel Bee MD LAB BLOOD ORDERABLES Nadia l Result Performing Organization Address [facility] [place] [address] * Dexa Bone Density (06/08/2025 8:35 AM EDT) Anatomical Region Laterality Modality L-spine Radiographic Liseth ging Narrative 06/17/2025 10:07 PM EDT [facility] [address] [place] [address] DXA Bone Densitometry Report: [06/08/2025] BMD test performed using the Photomedex DXA System (analysis version: 14.10) manufactured by [employer]. REFERRING PROVIDER: Dr. Moustapha Katz MD CLINICAL [...] of change in BMD). Moustapha Katz MD [facility] DXA PROCEDURES Final Resul t from Last 3 Months or Most Recently Relevant to Health Maintenance [place] [address] ANTHEM Advance Directives Documents on File Type Date Recorded Patient [employer] Expl anation Power of Meeting Facilitator 07/11/2025 POA / Trudy ng Will Care Teams Stud Sheep Farmer Relationship Specialty Start Date End Date Chris Medel MD [phone] PCP - General 03/14/25 Ruma Hernández APRN [address] [address] Referring Physician Gastroenterology 07/30/23
--- OUTSIDE RECORDS SUMMARY | 2025-11-01 07:03 | XMS_ITS | Encounter Summary ---
Author Organization [facility] Address [address] [place] [address] Care Team Providers Care Lead Custodian Name Role Phone Dr. Chris Medel MD [...] release of HIV test results or diagnoses. [id number] Health Encounter Details Date Type Department Care Team (Late st Contact Info) Description 10/30/2025 Chart Note [facility] Liver Transplant at [address] [place] [phone] Pita Pike MA FK pending [facility] Social History Tobacco Use Types Packs/Day Years [...] Associated Diagnosis Comments HEPATIC FUNCTION PANEL Routine 10/29/2025 7:49 AM EST CBC AND DIFFERENTIAL Routine 10/29/2025 7:49 AM EST RENAL FUNCTION PANEL W/O EGFR Routine 10/29/2025 7:49 AM EST documented in this encounter Results * (ABNORMAL) Renal Function Panel w/o EGFR (10/29/2025 7:49 AM EST) Glucose 107 BUN 13 CO2 29(A) 13 - 22 mmol/L Creatinine 0.90 Potassium 3.9 Sodium 137 Chloride 102 Phosphorus 3.7 2.5 - 4.9 mg/dL Calcium 7.6 EGFR 85 mg/dL Albumin 2.8(A) 3.5 - 5.0 g/dL Blood Result [facility] Provider LAB BLOOD ORDERABLES Nadia l Result * (ABNORMAL) CBC and differential (10/29/2025 7:49 AM EST) Hemoglobin 10.1(A) 13.5 - 17.5 g/dL Hematocrit [...] 5.90 10^6/ L WBC 10.3 10^3/mL Blood Result [facility] Provider LAB BLOOD ORDERABLES Nadia l Result * Hepatic Function Panel (10/29/2025 7:49 AM EST) Bilirubin, Direct 0.7 Bilirubin, Indirect 0.7 Alkaline Phosphatase 319 ALT 138 AST 55 Total Bilirubin 1.4 Total Protein 5.5 Plasma Result [facility] Provider LAB BLOOD ORDERABLES Nadia l Result documented in this encounter Visit Diagnoses Not on filedocumented in this encounter Additional Health Concerns Assessment Noted Time PHQ-9 Depression Total Score: 8 09/10/20 25 11:09 AM EDT documented as of this encounter Care Teams Lead Custodian Relationship Specialty Start Date End Date Dr. Chris Medel MD [address] [place] [address] PCP - General Primary Care 10/25/25 documented as of this encounter
--- OUTSIDE RECORDS SUMMARY | 2025-11-01 07:03 | XMS_ITS | Encounter Summary ---
Author Organization [facility] Address [address] [place] [address] Care Team Providers Care Garnett Machine Operator Name Role Phone System, Provider [...] release of HIV test results or diagnoses. [id number] Health Encounter Details Date Type Department Care Team (Late st Contact Info) Description 10/18/2025 Chart Note [facility] Kidney Transplant at [address] [address] Ailin Wells Txp Patient Called In Social [...] Txp Date:10/17/2025 Organ: Liver Primary Ins: Jayy [facility] Small Animal Veterinarian: Serena Carter ext [phone] Txp Auth:[id number] Dates:09/24/2025-09/23/2026 Admit Auth: IV to obtain RX:Jayy documented in this encounter Plan of Treatment Not on file documented as of this encounter Visit Diagnoses Not on filedocumented in this encounter Additional Health Concerns Assessment Noted Time PHQ-9 Depression Total Score: 8 10/27/20 25 11:09 AM EDT documented as of this encounter Care Teams Garnett Machine Operator Relationship Specialty Start Date End Date System, Provider Not In PCP - General 09/10/25 10/24/25 documented as of this encounter
--- OUTSIDE RECORDS SUMMARY | 2025-11-01 07:03 | XMS_ITS | Encounter Summary ---
Author Organization [facility] Address [address] [place] [address] Care Team Providers Care Bend Sorter Name Role Phone System, Provider Not In [...] release of HIV test results or diagnoses. [id number] Health Encounter Details Date Type Department Care Team (Late st Contact Info) Description 09/24/2025 Orders Only [facility] Liver Transplant at [address] [address] Chapito Alcantar, SILVIO Alcoholic cirrhosis of liver [...] - 15.1 seconds 09/24/2025 3:06 PM EST [facility] INR 1.9(H) 0.9 - 1.1 09/24/2025 3:06 PM EST [facility] Comment: RECOMMENDED THERAPEUTIC RANGES USING INR : Stable oral anticoagulant therapy: 2.0 - 3.0 Mechanical prosthetic heart valve: 2.5 - 3.5 Recurrent acute myocardial infarction: 2.5 - 3.5 Plasma 09/24/2025 2:11 PM EST 09/24/2025 2:43 PM EST Nigel Reaves MD LAB BLOOD ORDERABLES Final Resul t [facility] [address] * (ABNORMAL) Renal Function Panel w/EGFR (09/24/2025 2:11 PM EST) Pathologist [facility] Sodium 137 133 - 146 mmol/L 09/24/2025 6:36 PM EST [facility] Potassium 3.9 3.5 - 5.3 mmol/L 09/24/2025 6:36 PM EST [facility] Chloride 104 98 - 110 mmol/L 09/24/2025 6:36 PM EST [facility] CO2 29 21 - 33 mmol/L 09/24/2025 6:36 PM EST [facility] Comment:High lactate dehydro genase concentrations in patient samples may cause falsely increased bicarbonate results. If markedly elevated LDH is observed or suspected, please assess results in conjunction with patient`s clinical presentation. In cases of discrepant results, consider evaluating CO2 in with a blood gas order. Anion Gap 4 3 - 16 mmol/L 09/24/2025 6:36 PM EST [facility] BUN 13 7 - 25 mg/dL 09/24/2025 6:36 PM EST [facility] Creatinine 0.84 0.60 - 1.30 mg/dL 09/24/2025 6:36 PM EST [facility] Glucose 98 70 - 100 mg/dL 09/24/2025 6:36 PM EST [facility] Calcium 8.1(L) 8.6 - 10.3 mg/dL 09/24/2025 6:36 PM EST [facility] Phosphorus 3.5 2.1 - 4.7 mg/dL 09/24/2025 6:36 PM EST [facility] Albumin 2.0(L) 3.5 - 5.7 g/dL 09/24/2025 6:36 PM EST [facility] Osmolality, Calculated 284 278 - 305 mOsm/kg 09/24/2025 6:36 PM EST [facility] EGFR >90 09/24/2025 6:36 PM EST [facility] Comment: As of 2022, the [...] MD LAB BLOOD ORDERABLES Final Resul t [facility] [address] [place] [address], [facility] * (ABNORMAL) Hepatic Function Panel (09/24/2025 2:11 PM EST) Total Bilirubin 3.4(H) 0.0 - 1.5 mg/dL 09/24/2025 6:36 PM EST [facility] Bilirubin, Direct 1.07(H) 0.00 - 0.40 mg/dL 09/24/2025 6:36 PM EST [facility] AST 37 13 - 39 U/L 09/24/2025 6:36 PM EST [facility] ALT 22 7 - 52 U/L 09/24/2025 6:36 PM EST [facility] Alkaline Phosphatase 142(H) 36 - 125 U/L 09/24/2025 6:36 PM EST [facility] Total Protein 5.8(L) 6.4 - 8.9 g/dL 09/24/2025 6:36 PM EST [facility] Albumin 2.0(L) 3.5 - 5.7 g/dL 09/24/2025 6:36 PM EST [facility] Bilirubin, Indirect 2.33(H) 0.00 - 1.10 mg/dL 09/24/2025 6:36 PM EST [facility] Plasma 09/24/2025 2:11 PM EST 09/24/2025 5:52 PM EST us Nigel Reaves MD LAB BLOOD ORDERABLES Final Resul t [facility] [address] [place] [address], [facility] documented in this encounter Visit Diagnoses Diagnosis Alcoholic cirrhosis of liver with ascites (CMS-HCC)- Primary Pre-transplant evaluation for chronic liver disease documented in this encounter Additional Health Concerns Assessment Noted Time PHQ-9 Depression Total Score: 8 09/10/20 25 11:09 AM EDT documented as of this encounter Care Teams Bend Sorter Relationship Specialty Start Date End Date System, Provider Not In PCP - General 09/10/25 10/24/25 documented as of this encounter
--- OUTSIDE RECORDS SUMMARY | 2025-11-01 07:03 | XMS_ITS | Encounter Summary ---
Author Organization [facility] Address [address] [place] [address] Care Team Providers Care Parimutuel Ticket Checker Name Role Phone System, Provider Not In [...] release of HIV test results or diagnoses. [id number] Health Encounter Details Date Type Department Care Team (Late st Contact Info) Description 10/03/2025 Chart Note [facility] Kidney Transplant at [address] [address] Ailin Wells Organ: Liver Social History Tobacco [...] Organ: Liver Patient [place] Citizen: Yes Patient [place] Cbc Base: No Patient is Minor Children in the home: no Patient is retired, spouse works FT Income:$11k/mnth combined Primary Ins: [place] BCBS Insured:self Secondary Ins: N/A COBRA: No- insurance plan is paid by previous employer as part of fdc package Eligible for short/halfway disability: N/A Disability due to: n/A Travel/Lodging: no No Medicare: Will be eligible in January of 2026. Provided RetireMed info Discussed Medication List and Coverage: Yes Patient will need medications from [facility] post txp:unknown Recipient needs cleared prior to donor being evaluated:no Evaluation for patients/donors need to be done at [facility] Obtained signature on benefits sheets and financial consent: mailed to patient documented in this encounter Plan of Treatment Not on file documented as of this encounter Visit Diagnoses Not on filedocumented in this encounter Additional Health Concerns Assessment Noted Time PHQ-9 Depression Total Score: 8 09/10/20 11:09 AM EDT documented as of this encounter Care Teams Parimutuel Ticket Checker Relationship Specialty Start Date End Date System, Provider Not In PCP - General 09/10/25 10/24/25 documented as of this encounter
--- OUTSIDE RECORDS SUMMARY | 2025-11-01 07:03 | XMS_ITS | Encounter Summary ---
Author Organization [facility] Address [address] [place] [address] Care Team Providers Care Boring Machine Operator Name Role Phone Ruma Hernández INFRASTRUCTURE SOLUTIONS ARCHITECT Unavailable [phone] Chris Medel MD Primary Care Provider [phone] Encounter Details Date Type Department Care Team (Late st Contact Info) Description 08/20/2025 Results Follow-Up [facility] [address] [place] [phone] Meaghan Le, RN [facility] LIVER [id number] [address] [place] [address] Social History Tobacco Use Types Packs/Day Years [...] do you attend [facility] or voodoo services? More than 4 times per year 02/19/2025 Do you belong to any clubs o r organizations such as hindu groups, unions, [employer] or athletic groups, or school groups? [...] and heating? Not hard at all 06/15/2025 [facility] - [...] drink first t luisa in the morning (EYE-FUNCTIONAL MANAGER) to steady your nerves or to get rid of a hangover? 0 06/14/2025 CAGE Questionnaire Score 0 025 Utilities Answer Date Recorded In the past 12 months has e [employer], gas, oil, or water [employer] threatened to shut off services in your [...] [facility], [address] [place] [address] Suhail Brock MD [address] [place] [address] 01/24/2026 4:40 PM EDT Office Visit [facility] [address] [facility], [address] [place] [address] Moustapha Katz MD [address] [facility] [address] [place] [address] documented as of this encounter [...] documented as of this encounter Care Teams Boring Machine Operator Relationship Specialty [place] [address] PCP - General 03/14/25 Ruma Hernández APRN [address] [facility] [address] [place], [place] [id number] Referring Physician Gastroenterology 07/30/23 documented as of this encounter
--- OUTSIDE RECORDS SUMMARY | 2025-11-01 07:03 | XMS_ITS | Encounter Summary ---
Author Organization [facility] Address [address] [place] [address] Care Team Providers Care Account Executive Metalworking Name Role Phone System, Provider Not In [...] release of HIV test results or diagnoses. [id number] Health Encounter Details Date Type Department Care Team (Late st Contact Info) Description 09/25/2025 Chart Note [facility] Kidney Transplant at [address] [address] Ailin Wells Authorization for listing Social History [...] for listing Organ: Liver Insurance Co: Jayy [facility] Audio Visual Equipment Rental Clerk: Serena Carter ext [phone] Authorization # [id number] Dates of Service: 09/24/2025-09/23/2026 Additional Information: Scanned to PFS documented in this encounter Plan of Treatment Not on file documented as of this encounter Visit Diagnoses Not on filedocumented in this encounter Additional Health Concerns Assessment Noted Time PHQ-9 Depression Total Score: 8 09/10/20 11:09 AM EDT documented as of this encounter Care Teams Account Executive Metalworking Relationship Specialty Start Date End Date System, Provider Not In PCP - General 09/10/25 10/24/25 documented as of this encounter
--- OUTSIDE RECORDS SUMMARY | 2025-11-01 07:03 | XMS_ITS | Encounter Summary ---
Author Organization [facility] Address [address] [place] [address] Care Team Providers Care Occupational Therapy Director Name Role Phone KaronUrban Hosea CAMARA Primary Care Provider [phone] Encounter Details Date Type Department Care Team (Late st Contact Info) Description 10/14/2023 Telephone [facility] GA[facility] [address] [facility] [address] [place] [address] Ruma Hernández, RETAIL OFFICE ASSOCIATE 1780 [facility] 202 [place], [place] [id number] Social History Tobacco Use Types Packs/Day Years [...] on filedocumented in this encounter Care Teams Occupational Therapy Director Relationship Specialty Start Date End Date Urban Brantley DO [address] [place] [address] PCP - General Internal Medicine 03/22/23 documented as of this encounter
--- OUTSIDE RECORDS SUMMARY | 2025-11-01 07:03 | XMS_ITS | Encounter Summary ---
Author Organization [facility] Address [address] [place] [address] Care Team Providers Care Immigration Attorney Name Role Phone Dr. Chris Medel MD [...] release of HIV test results or diagnoses. [id number] Health Encounter Details Date Type Department Care Team (Late st Contact Info) Description 10/30/2025 Social Work [facility] Liver Transplant at [address] [place] [phone] Michelle Ho, FORMULA BOTTLER, ACCOUNTS RECEIVABLE SUPERVISOR Social History Tobacco Use Types Packs/Day Years [...] No 10/17/2025 Housing Stability Vital Sign Answer Fransioc e [...] of this encounter Progress Notes * MADHAV Arias, ACCOUNTS RECEIVABLE SUPERVISOR - 10/30/2025 10:29 AM EST Social Work Note- Outpatient Liver Transplant Patient is status post-OLT on 10/17/2025. [facility] met with patient and during post-OLT clinic. Patient reports that he is pleased with his progress. He reports that he is staying active by walking and notes an improvement in his appetite. He denies any mood concerns, stating he feels mentally strong and positive about his recovery. He declines any transplant mental health services at this time but will notify [facility] if the need arises. Patient reports that they have not yet received [facility] services. [facility] to call [facility] ([phone]) to obtain a status update. Hope Stone given on this date. No additional SW needs identified at this time. SW will continue to follow. MADHAV Arias, ACCOUNTS RECEIVABLE SUPERVISOR [phone] documented in this encounter Plan of Treatment Not on file documented as of this encounter Visit Diagnoses Not on filedocumented in this encounter Additional Health Concerns Assessment Noted Time PHQ-9 Depression Total Score: 8 09/10/20 11:09 AM EDT documented as of this encounter Care Teams Immigration Attorney Relationship Specialty Start Date End Date Dr. Chris Medel MD [address] [facility] [address] PCP - General Primary Care 10/25/25 documented as of this encounter
--- OUTSIDE RECORDS SUMMARY | 2025-11-01 07:03 | XMS_ITS | Encounter Summary ---
Author Organization [facility] Address [address] [place] [address] Care Team Providers Care Envelope Adjuster Name Role Phone System, Provider Not In [...] release of HIV test results or diagnoses. [id number] Health Encounter Details Date Type Department Care Team (Late st Contact Info) Description 10/22/2025 Orders Only [facility] Liver Transplant at [address] [address] Felice Nugent III, MD [address] [place] [phone] Liver replaced by transplant ([facility]) (Primary Dx); Immunosuppressive management encounter following liver transplant ([facility]) Social History Tobacco Use Types Packs/Day Years [...] documented as of this encounter Care Teams Envelope Adjuster Relationship Specialty Start Date End Date System, Provider Not In PCP - General 09/10/25 10/24/25 Dr. Chris Medel MD [address] [place] [address] PCP - General Primary Care 10/25/25 documented as of this encounter
--- OUTSIDE RECORDS SUMMARY | 2025-11-01 07:03 | XMS_ITS | Encounter Summary ---
Author Organization [facility] Address [address] [place] [address] Care Team Providers Care Binder Chainstitch Name Role Phone System, Provider Not In [...] release of HIV test results or diagnoses. [id number] Health Encounter Details Date Type Department Care Team (Late st Contact Info) Description 09/24/2025 Chart Note [facility] Kidney Transplant at [address] [phone] Ailni Wells Called local office again to get [...] documented as of this encounter Care Teams Binder Chainstitch Relationship Specialty Start Date End Date System, Provider Not In PCP - General 09/10/25 10/24/25 documented as of this encounter
--- OUTSIDE RECORDS SUMMARY | 2025-11-01 07:05 | XMS_ITS | Encounter Summary ---
Author Organization [facility] Address [address] [place] [address] Care Team Providers Care Weatherization Administrator Name Role Phone System, Provider Not In [...] release of HIV test results or diagnoses. [id number] Health Encounter Details Date Type Department Care Team (Late st Contact Info) Description 09/11/2025 Telephone [place] Liver Transplant at [address] [address] Chapito Alcantar RN Social History Tobacco Use [...] documented as of this encounter Care Teams Weatherization Administrator Relationship Specialty Start Date End Date System, Provider Not In PCP - General 09/10/25 10/24/25 documented as of this encounter
--- OUTSIDE RECORDS SUMMARY | 2025-11-01 07:05 | XMS_ITS | Encounter Summary ---
Author Organization [facility] Address [address] [place] [address] Care Team Providers Care Geotechnical Operating Engineer Name Role Phone Ruma Hernández CHEF Unavailable [phone] Chris Medel MD Primary Care Provider [phone] Encounter Details Date Type Department Care Team (Late st Contact Info) Description 07/19/2025 Results Follow-Up [facility] [address] [place] [address] Meaghan Le, RN [facility] LIVER [id number] [address] [place] [address] Social History Tobacco Use Types Packs/Day Years [...] [facility] or zoroastrian services? More than 4 times per year 02/19/2025 Do you belong to any clubs o r organizations such as advent groups, unions, O[employer] or athletic groups, or school groups? Yes [...] How often do you attend chur or zoroastrian services? More than 4 times [...] and heating? Not hard at all 06/15/2025 [facility] - Occupational Stress Questionnaire [...] drink first t luisa in the morning (EYE-PC SUPPORT SPECIALIST) to steady your nerves or to get rid of a hangover? 0 06/14/2025 CAGE Questionnaire Score 0 025 Utilities Answer Date Recorded In the past 12 months has th e [employer], gas, oil, or water [employer] threatened to shut off services in your [...] Visit [facility] [address] [facility], [address] [place] [address] Suhail Brock MD [address] [facility] [address] [place] [address] 01/24/2026 4:40 PM EDT Office Visit [facility] [address] [facility], [address] [place] [address] Moustapha Katz MD [address] [facility] [address] [place] [address] documented as of this encounter [...] documented as of this encounter Care Teams Geotechnical Operating Engineer Relationship Specialty [place] [address] PCP - General 03/14/25 Ruma Hernández APRN [address] [place], [place] [id number] Referring Physician Gastroenterology 07/30/23 documented as of this encounter
--- OUTSIDE RECORDS SUMMARY | 2025-11-01 07:05 | XMS_ITS | Encounter Summary ---
Author Organization [facility] Address [address] [place] [address] Care Team Providers Care Apparatus Engineering Technologist Name Role Phone Unknown, Attending Provider Primary [...] release of HIV test results or diagnoses. [id number] Health Encounter Details Date Type Department Care Team (Late st Contact Info) Description 09/05/2025 Telephone [facility] Liver Transplant at [address] [address] Cori Dover MA Social History Tobacco Use [...] request the following images be sent to [facility] Pacs: Must send fax request. Request [...] on filedocumented in this encounter Care Teams Apparatus Engineering Technologist Relationship Specialty Start Date End Date Unknown, Attending Provider PCP - General 08/29/2508/16 documented as of this encounter
--- OUTSIDE RECORDS SUMMARY | 2025-11-01 07:05 | XMS_ITS | Encounter Summary ---
Author Organization [facility] Address [address] [place] [address] Care Team Providers Care Kindergarten Teacher Name Role Phone Dr. Chris Medel MD [...] release of HIV test results or diagnoses. [id number] Health Encounter Details Date Type Department Care Team (Late st Contact Info) Description 10/25/2025 Telephone [facility] Liver Transplant at [address] [place] [phone] Pita Pike MA Social History Tobacco [...] Pike MA - 10/25/2025 11:46 AM EST [facility] called to say that they [...] his clinic appt and then relayed to [facility] that they would have to still pt on 11/01 for labs and incisional check. documented in this encounter Plan of Treatment Not on file documented as of this encounter Visit Diagnoses Not on filedocumented in this encounter Additional Health Concerns Assessment Noted Time PHQ-9 Depression Total Score: 8 09/10/20 25 11:09 AM EDT documented as of this encounter Care Teams Kindergarten Teacher Relationship Specialty Start Date End Date Dr. Chris Medel MD [address] [place] [address] PCP - General Primary Care 10/25/25 documented as of this encounter
--- OUTSIDE RECORDS SUMMARY | 2025-11-01 07:05 | XMS_ITS | Encounter Summary ---
Author Organization [facility] Address [address] [place] [address] Care Team Providers Care Blanching Machine Operator Name Role Phone Unknown, Attending [...] release of HIV test results or diagnoses. [id number] Health Encounter Details Date Type Department Care Team (Late st Contact Info) Description 09/05/2025 Telephone [facility] Liver Transplant at [address] [address] Chapito Alcantar RN Social History Tobacco Use [...] on filedocumented in this encounter Care Teams Blanching Machine Operator Relationship Specialty Start Date End Date Unknown, Attending Provider PCP - General 08/29/2508/16 documented as of this encounter
--- OUTSIDE RECORDS SUMMARY | 2025-11-01 07:05 | XMS_ITS | Encounter Summary ---
Author Organization [facility] Address [address] [place] [address] Care Team Providers Care Billing And Accounting Staff Assistant Name Role Phone System, Provider Not [...] release of HIV test results or diagnoses. [id number] Health Encounter Details Date Type Department Care Team (Late st Contact Info) Description 09/13/2025 Chart Note [facility] Liver Transplant at [address] [address] Chapito Alcantar RN Multi-disciplinary Hepatobiliary Case Conference [...] documented as of this encounter Care Teams Billing And Accounting Staff Assistant Relationship Specialty Start Date End Date System, Provider Not In PCP - General 09/10/25 10/24/25 documented as of this encounter
--- OUTSIDE RECORDS SUMMARY | 2025-11-01 07:05 | XMS_ITS | Encounter Summary ---
Author Organization [facility] Address [address] [place] [address] Care Team Providers Care Non Garment Sewing Machine Operator Name Role Phone System, Provider [...] release of HIV test results or diagnoses. [id number] Health Encounter Details Date Type Department Care Team (Late st Contact Info) Description 09/10/2025 Chart Note [facility] Liver Transplant at [address] [address] Chapito Alcantar RN Alcoholic cirrhosis of liver [...] Alcantar RN - 09/10/2025 9:11 AM EDT [place] tab updated documented in this encounter Plan [...] QT: 464 ms QTc: 478 ms P [place]: 27 degrees R [place]: 58 degrees T [place]: 22 degrees Diagnosis Line: NORMAL SINUS RHYTHM ^ NORMAL ECG ^ No previous ECGs available ^ Confirmed by MD TIP, [facility] ([id number]) on 09/10/2025 3:28:36 [...] documented as of this encounter Care Teams Non Garment Sewing Machine Operator Relationship Specialty Start Date End Date System, Provider Not In PCP - General 09/10/25 10/24/25 documented as of this encounter
--- OUTSIDE RECORDS SUMMARY | 2025-11-01 07:05 | XMS_ITS | Encounter Summary ---
Author Organization [facility] Address [address] [place] [address] Care Team Providers Care Diamond Sorter Name Role Phone Dr. Chris Medel MD [...] release of HIV test results or diagnoses. [id number] Health Encounter Details Date Type Department Care Team (Late st Contact Info) Description 10/25/2025 Orders Only [facility] Liver Transplant at [address] [address] Felice Nugent III, MD [address] [place] [address] Social History Tobacco Use Types Packs/Day [...] the past 12 months has th e [employer], gas, oil, or water company threatened to [...] S Final Result [facility] [address] [place] [address] documented in this encounter Visit Diagnoses Not on filedocumented in this encounter Additional Health Concerns Assessment Noted Time PHQ-9 Depression Total Score: 8 09/10/20 11:09 AM EDT documented as of this encounter Care Teams Diamond Sorter Relationship Specialty Start Date End Date Dr. Chris Medel MD [address] [place] [address] PCP - General Primary Care 10/25/25 documented as of this encounter
--- OUTSIDE RECORDS SUMMARY | 2025-11-01 07:05 | XMS_ITS | Encounter Summary ---
Author Organization [facility] Address [address] [place] [address] Care Team Providers Care Lace Sewer Name Role Phone Unknown, Attending Provider Primary [...] release of HIV test results or diagnoses. [id number] Health Encounter Details Date Type Department Care Team (Late st Contact Info) Description 09/05/2025 Abstract [facility] Liver Transplant at [address] [address] Chapito Alcantar, SILVIO Alcoholic cirrhosis of liver [...] disease documented in this encounter Care Teams Lace Sewer Relationship Specialty Start Date End Date Unknown, Attending Provider PCP - General 08/29/2508/16 documented as of this encounter
--- OUTSIDE RECORDS SUMMARY | 2025-11-01 07:05 | XMS_ITS | Encounter Summary ---
Author Organization [facility] Address [address] [place] [address] Care Team Providers Care Shop And Alteration Tailor Name Role Phone Unknown, Attending Provider Primary [...] release of HIV test results or diagnoses. [id number] Reason for Referral * Imaging/Cardiovascular Scan (Routine) - New Request Specialty Diagnoses / Procedures Referred By Contac t Referred To Contact Radiology Procedures CT Abdomen and or Pelvis Outside Exam System, Provider Not In [address] [address] Referral ID Status Reason Start Date Expiration Date V isits Requested Visits Authorized [id number] New Request 09/08/2025 03/07/2026 1 1 Encounter Details Date Type Department Care Team (Late st Contact Info) Description 03/14/2025 Orders Only EXTERNAL PROV RESULTS [address] [place] [address] System, Provider Not In Social History Tobacco [...] on filedocumented in this encounter Care Teams Shop And Alteration Tailor Relationship Specialty Start Date End Date Unknown, Attending Provider PCP - General 08/29/2508/16 System, Provider Not In PCP - General 09/10/25 10/24/25 Dr. Chris Medel MD [address] [place] [address] PCP - General Primary Care 10/25/25 documented as of this encounter
--- OUTSIDE RECORDS SUMMARY | 2025-11-01 07:05 | XMS_ITS | Encounter Summary ---
Author Organization [facility] Address [address] [place] [address] Care Team Providers Care Electrical Construction Project Manager Name Role Phone Unknown, Attending Provider [...] release of HIV test results or diagnoses. [id number] Health Encounter Details Date Type Department Care Team (Late st Contact Info) Description 09/13/2024 Orders Only EXTERNAL PROV RESULTS [address] [place] [address] System, Provider Not In Social History Tobacco [...] filedocumented in this encounter Care Teams Electrical Construction Project Manager Relationship Specialty Start Date End Date Unknown, Attending Provider PCP - General 08/29/2508/16 System, Provider Not In PCP - General 09/10/25 10/24/25 Dr. Chris Medel MD [address] [place] [address] PCP - General Primary Care 10/25/25 documented as of this encounter
--- OUTSIDE RECORDS SUMMARY | 2025-11-01 07:05 | XMS_ITS | Encounter Summary ---
Author Organization [facility] Address [address] [place] [address] Care Team Providers Care Occupational Analyst Name Role Phone Ruma Hernández AUTO CAMP ATTENDANT Unavailable [phone] Chris Medel MD Primary Care Provider [phone] Encounter Details Date Type Department Care Team [...] do you attend [facility] or scientologist services? More than 4 times [...] and heating? Not hard at all 06/15/2025 [facility] [place] of Occupat ional Health - Occupational Stress [...] drink first t luisa in the morning (EYE-PLANT CARE WORKER) to steady your nerves or to [...] Upcoming Encounters Date Type Department Care Team ([facility] st Contact Info) Description 11/27/2025 3:45 PM EST Office Visit Medical Office Building Urology [address] [facility], [address] [place] [address] Suhail Brock MD [address] [place] [address] 01/24/2026 4:40 PM EDT Office Visit Professional [facility] [address] [facility], [address] [place] [address] Moustapha Katz MD [address] [facility] [address] [place] [address] documented as of this encounter [...] documented as of this encounter Care Teams Occupational Analyst Relationship Specialty [place] [address] PCP - General 03/14/25 Ruma Hernández APRN [address] [place] [address] Referring Physician Gastroenterology 07/30/23 documented as of this encounter
--- OUTSIDE RECORDS SUMMARY | 2025-11-01 07:05 | XMS_ITS | Encounter Summary ---
Author Organization [facility] Address [address] [place] [address] Care Team Providers Care Real Estate Closer Name Role Phone Ruma Hernández BEATER OUT LEVELING MACHINE Unavailable [phone] Chris Medel MD Primary Care Provider [phone] Encounter Details Date Type Department Care Team (Late st Contact Info) Description 08/31/[address] Results [facility]-Up [facility] Trans[facility] [address] [place] [address] Meaghan Le, RN [facility] LIVER [id number] [address] [place] [address] Social History Tobacco Use Types Packs/Day Years [...] 02/19/2025 How often do you attend [facility] or pentecostal services? More than 4 times per year 02/19/2025 Do you belong to any clubs o r organizations such as christian groups, unions, [employer] or athletic groups, or school groups? Yes [...] hard at all 06/15/2025 [facility] - Occupational Stress Questionnaire [...] drink first t luisa in the morning (EYE-PAINT MIXER) to steady your nerves or to get rid of a hangover? 0 06/14/2025 CAGE Questionnaire Score 0 025 Utilities Answer Date Recorded In the past 12 months has e [employer], gas, oil, or water [employer] threatened to shut off services in your [...] [facility], [address] [place] [address] Suhail Brock MD [address] [place] [address] 01/24/2026 4:40 PM EDT Office Visit Professional [facility] [address] [facility], [address] [place] [address] Moustapha Katz MD [address] [facility] [address] [place] [address] documented as of this encounter [...] of this encounter Care Teams Real Estate Closer Relationship Specialty [place] [address] PCP - General 03/14/25 Ruma Hernández APRN [address] [facility] [address] [place] [address] Referring Physician Gastroenterology 07/30/23 documented as of this encounter
--- OUTSIDE RECORDS SUMMARY | 2025-11-01 07:05 | XMS_ITS | Encounter Summary ---
Author Organization [facility] Address [address] [place] [address] Care Team Providers Care Prep Person Name Role Phone System, Provider Not [...] release of HIV test results or diagnoses. [id number] Health Encounter Details Date Type Department Care Team (Late st Contact Info) Description 09/17/2025 Telephone [facility] I[facility] at [facility] [address] [place] [address] Navi Sims MD [address] [facility] [address] [place] [address] Social History Tobacco Use Types Packs/Day [...] documented as of this encounter Care Teams Prep Person Relationship Specialty Start Date End Date System, Provider Not In PCP - General 09/10/25 10/24/25 documented as of this encounter
--- OUTSIDE RECORDS SUMMARY | 2025-11-01 07:05 | XMS_ITS | Encounter Summary ---
Author Organization [facility] Address [address] [place] [address] Care Team Providers Care Ship Rigger Name Role Phone Ruma Hernández UNEMPLOYMENT INSURANCE DIRECTOR Unavailable [phone] Chris Medel MD Primary Care Provider [phone] Reason for Referral * Imaging (Routine) - Closed Specialty Diagnoses / Procedures Referred By Gianna reyes Referred To Contact Radiology Diagnoses Pre-liver transplant, listed Procedures MR Abdomen w and wo IV Contrast Portia Maguire MD [address] [facility] [address] [place] [address] Phone: tel: fax: Referral ID Status Reason Start Date Expiration Date Visits Re quested Visits Authorized [id number] Closed 09/05/2025 03/07/2027 1 1 Encounter Details Date Type Department Care Team (Late st Contact Info) Description 09/05/2025 Orders Only [facility] Transplant Center [address] [facility] [address] [place] [address] Meaghan Le, RN HOSPITAL LIVER [id number] [address] [place] [address] Pre-liver transplant, listed (Primary Dx) Social History [...] week 02/19/2025 How often do you attend [facility] or scientology services? More than 4 times [...] and heating? Not hard at all 06/15/2025 [facility] of Occupat ional Health - Occupational [...] drink first t luisa in the morning (EYE-TELECOM FIELD TECHNICIAN) to steady your nerves or to [...] [address] [facility], [address] [place] [address] Suhail Brock MD [address] [place] [address] 01/24/2026 4:40 PM EDT Office Visit [facility] [address] [facility], [address] [place] [address] Moustapha Katz MD [address] [place] [address] documented as of this encounter [...] are consistent with and integrated into the [place] [employer] of Liver Diseases [...] edema and bilateral gynecomastia. Procedure Note Luh uFller MD - 09/12/2025 CLINICAL INDICATION: hcc surveillance, elevated ALP TECHNIQUE: MR imaging of the abdomen was performed without and with intravenouscontrast material using the following sequences: coronal single shot [id number] fast spin echo, axial T2 weighted sequences [...] are consistent with and integrated into the [place] Associationfor the Study of Liver Diseases (AASLD) [...] Fuller MD on 09/12/2025 11:41 AM us Pearce M Alzubaidi MD IMG MRI PROCEDURES Final Result documented [...] as of this encounter Care Teams Ship Rigger Relationship Specialty [place] [address] PCP - General 03/14/25 Ruma Hernández APRN [address] [address] Referring Physician Gastroenterology 07/30/23 documented as of this encounter
--- OUTSIDE RECORDS SUMMARY | 2025-11-01 07:05 | XMS_ITS | Encounter Summary ---
Author Organization [facility] Address [address] [place] [address] Care Team Providers Care Financial Analyst Intern Name Role Phone Unknown, Attending Provider Primary [...] release of HIV test results or diagnoses. [id number] Health Encounter Details Date Type Department Care Team (Late st Contact Info) Description 06/13/2025 Orders Only EXTERNAL PROV RESULTS [address] [place] [address] System, Provider Not In Social History Tobacco [...] filedocumented in this encounter Care Teams Financial Analyst Intern Relationship Specialty Start Date End Date Unknown, Attending Provider PCP - General 08/29/2508/16 System, Provider Not In PCP - General 09/10/25 10/24/25 Dr. Chris Medel MD [address] [place] [address] PCP - General Primary Care 10/25/25 documented as of this encounter
--- OUTSIDE RECORDS SUMMARY | 2025-11-01 07:05 | XMS_ITS | Encounter Summary ---
Author Organization [facility] Address [address] [place] [address] Care Team Providers Care Manager Employment Name Role Phone Unknown, Attending Provider Primary [...] release of HIV test results or diagnoses. [id number] Reason for Referral * Imaging/Cardiovascular Scan (Routine) - New Request Specialty Diagnoses / Procedures Referred By Contac t Referred To Contact Radiology Procedures CT Abdomen and or Pelvis Outside Exam System, Provider Not In [address] [address] Referral ID Status Reason Start Date Expiration Date V isits Requested Visits Authorized [id number] New Request 09/08/2025 03/07/2026 1 1 Encounter Details Date Type Department Care Team (Late st Contact Info) Description 04/21/2024 Orders Only EXTERNAL PROV RESULTS [address] [place] [address] System, Provider Not In Social History Tobacco [...] filedocumented in this encounter Care Teams Manager Employment Relationship Specialty Start Date End Date Unknown, Attending Provider PCP - General 08/29/2508/16 System, Provider Not In PCP - General 09/10/25 10/24/25 Dr. Chris Medel MD [address] [place] [address] PCP - General Primary Care 10/25/25 documented as of this encounter
--- OUTSIDE RECORDS SUMMARY | 2025-11-01 07:05 | XMS_ITS | Encounter Summary ---
Author Organization [facility] Address [address] [place] [address] Care Team Providers Care Dope Edger Name Role Phone System, Provider Not In [...] release of HIV test results or diagnoses. [id number] Health Encounter Details Date Type Department Care Team (Late st Contact Info) Description 10/24/2025 Chart Note [facility] Liver Transplant at [address] [place] [address] Pita Pike MA FK pend [facility] Social [...] 6 - 15 ng/mL Whole Blood Result [facility] MD LAB BLOOD ORDERABLES Nadia l Result * (ABNORMAL) Renal Function Panel w/o EGFR (10/24/2025 7:23 AM EST) [facility] Glucose 100 BUN 16 CO2 28(A) 13 - 22 mmol/L Creatinine 0.90 Potassium 3.4 Sodium 136 Chloride 105 Phosphorus 3 2.5 - 4.9 mg/dL Calcium 7.7 EGFR 85 mg/dL Albumin 2.3(A) 3.5 - 5.0 g/dL Blood Result [facility] MD LAB BLOOD ORDERABLES Nadia l Result * Hepatic Function Panel (10/24/2025 7:23 AM EST) [facility] Bilirubin, Direct 0.4 Bilirubin, Indirect 0.6 Alkaline Phosphatase 149 ALT 210 AST 41 Total Bilirubin 1 Total Protein 4.8 Plasma Result [facility] MD LAB BLOOD ORDERABLES Nadia l [...] documented as of this encounter Care Teams Dope Edger Relationship Specialty Start Date End Date System, Provider Not In PCP - General 09/10/25 10/24/25 Dr. Chrsi Medel MD [address] [address] [place] [address] PCP - General Primary Care 10/25/25 documented as of this encounter
--- OUTSIDE RECORDS SUMMARY | 2025-11-01 07:05 | XMS_ITS | Encounter Summary ---
Author Organization [facility] Address [address] [place] [address] Care Team Providers Care Cisco Certified Internetwork Expert Name Role Phone System, Provider Not In [...] release of HIV test results or diagnoses. [id number] Health Encounter Details Date Type Department Care Team (Late st Contact Info) Description 09/19/2025 Telephone [facility] Liver Transplant at [address] [address] Chapito Alcantar RN Social History Tobacco Use [...] an OSH with a transfer pending to [facility]. Updated family that no bed is currently [...] documented as of this encounter Care Teams Cisco Certified Internetwork Expert Relationship Specialty Start Date End Date System, Provider Not In PCP - General 09/10/25 10/24/25 documented as of this encounter
--- OUTSIDE RECORDS SUMMARY | 2025-11-01 07:05 | XMS_ITS | Encounter Summary ---
Author Organization [facility] Address [address] [place] [address] Care Team Providers Care Slot Floor Person Name Role Phone System, Provider Not [...] release of HIV test results or diagnoses. [id number] Health Encounter Details Date Type Department Care Team (Late st Contact Info) Description 10/24/2025 Telephone [facility] Liver Transplant at [address] [address] Linn Andres MA Social History [...] - 10/24/2025 8:23 AM EST Gisela from [facility] lab called to report critical lab value [...] as of this encounter Care Teams Slot Floor Person Relationship Specialty Start Date End Date System, Provider Not In PCP - General 09/10/25 10/24/25 documented as of this encounter
--- OUTSIDE RECORDS SUMMARY | 2025-11-01 07:06 | XMS_ITS | Encounter Summary ---
Author Organization [facility] Address [address] [place] [address] Care Team Providers Care Shiftman Name Role Phone System, Provider Not In [...] release of HIV test results or diagnoses. [id number] Health Encounter Details Date Type Department Care Team (Late st Contact Info) Description 09/10/2025 Nutrition [facility] Transplant at [address] [address] Social History Tobacco Use [...] 2.1 (L) 09/10/2025 No results found for: [id number] PMH: Past Medical History: Diagnosis Date Epididymitis [...] Dietitian - Solid Organ Transplant Contact via nPario Chat [1] Allergies Allergen Reactions Lisinopril Other (See Comments) documented in this encounter Plan of Treatment Not on file documented as of this encounter Visit Diagnoses Not on filedocumented in this encounter Additional Health Concerns Assessment Noted Time PHQ-9 Depression Total Score: 8 09/10/20 11:09 AM EDT documented as of this encounter Care Teams Shiftman Relationship Specialty Start Date End Date System, Provider Not In PCP - General 09/10/25 10/24/25 documented as of this encounter
--- OUTSIDE RECORDS SUMMARY | 2025-11-01 07:06 | XMS_ITS | Encounter Summary ---
Author Organization [facility] Address [address] [place] [address] Care Team Providers Care Car Repairer Helper Name Role Phone Urban Brantley DO Primary Care Provider [phone] Ruma Hernández PROPERTY LOSS INSURANCE CLAIM ADJUSTER Unavailable [phone] Chris Medel MD Primary Care Provider [phone] Encounter Details Date Type Department Care Team (Late Contact Info) Description 03/22/2023 Orders Only External Location [address] [place] [address] Provider, External Social History Tobacco Use Types [...] [facility], [address] [place] [address] Suhail Brock MD [address] [place] [address] 01/24/2026 4:40 PM EDT Office Visit Professional [facility] [address] [facility], [address] [place] [address] Moustapha Katz MD [address] [facility] [address] [place] [address] documented as of this encounter [...] as of this encounter Care Teams Car Repairer Helper Relationship Specialty Start Date End Date Urban Brantley DO [address] [place], [place] [id number] PCP - General 07/30/23 03/13/25 [place] [address] PCP - General 03/14/25 Ruma Hernández APRN [address] [facility] [address] [place], [place] [id number] Referring Physician Gastroenterology 07/30/23 documented as of this encounter
--- OUTSIDE RECORDS SUMMARY | 2025-11-01 07:06 | XMS_ITS | Encounter Summary ---
Author Organization [facility] Address [address] [place] [address] Care Team Providers Care Bleach Analyst Name Role Phone Urban Brantley DO Primary Care Provider [phone] Ruma Hernández SOCIAL WORK INSTRUCTOR Unavailable [phone] Chris Medel MD Primary Care Provider [phone] Encounter Details Date Type Department Care Team (Late st Contact Info) Description 12/30/2023 Orders Only External Location [address] [place] [address] Urban Stafford MD [address] [facility] [address] [place] [address] Social History Tobacco Use Types Packs/Day [...] [address] [facility], [address] [place] [address] Suhail Brock MD [address] [place] [address] 01/24/2026 4:40 PM EDT Office Visit [facility] [address] [facility], [address] [place] [address] Moustapha Katz MD [address] [facility] [address] [place] [address] documented as of this encounter [...] as of this encounter Care Teams Bleach Analyst Relationship Specialty Start Date End Date Urban Brantley DO [address] [place] [address] PCP - General 07/30/23 03/13/25 [place] [address] PCP - General 03/14/25 Ruma Hernández APRN [address] [place] [address] Referring Physician Gastroenterology 07/30/23 documented as of this encounter
--- OUTSIDE RECORDS SUMMARY | 2025-11-01 07:06 | XMS_ITS ---
Author Organization [facility] Address [address] [place] [address] Care Team Providers Care Topographical Engineer Name Role Phone Dr. Chris Medel MD Primary Care Provider + Transplant Episode Liver Recipient [facility] ([place], [place]) - [facility] Organ Received: Liver Transplanted on 10/17/2025 Marked as Active Follow-up on 10/17/2025 Liver CoordinatorRuma Benjamin RN Phone: N/A Fax: N/A Email: N/A [place] Organ Diagnosis Organ Primary Contributory Liver Acute [...] N/A N/A Vani Drew MD Txp Surgeon [phone] N/A Portia Maguire Referring Physician [phone] N/A Michelle Ho MSW, NYLON MACHINE OPERATOR Txp Crown And Bridge Technician N/A N/A N/A Ruma Benjamin RN Txp Post Coordinator N/A N/A N/A Events Post-Transplant Pre-Transplant Admitted: 10/17/2025 Referred: 08/02/2025 Transplanted: 10/17/2025 Evaluation began: 5 Discharged: 10/22/2025 Committee: 09/11/2025 Center waitlisted: 5 Appointments (10/02/2025 - 12/02/2025) When With Visit Type Description 10/30/2025 Txp Hep - Erasmo, A Established Patient Enc ounter for therapeutic drug level monitoring (Primary Dx); Liver replaced by transplant (CMS-HCC); Immunosuppression (CMS-HCC); Immunosuppressive management encounter following liver transplant (CMS-HCC)
--- OUTSIDE RECORDS SUMMARY | 2025-11-01 07:06 | XMS_ITS | Encounter Summary ---
Author Organization Healthcare Address [address] [place] [address] Care Team Providers Care Tank Builder Name Role Phone Ruma Hernández BUSINESS PROCESS MODELER Unavailable [phone] Chris Medel MD Primary Care Provider [phone] Encounter Details Date Type Department Care Team [...] medical care at [facility] or [facility] services? More than 4 times [...] and heating? Not hard at all 06/15/2025 [facility] [place] [facility] Occupat ional Health - [...] drink first t luisa in the morning (EYE-LANDSCAPE CREW MEMBER) to steady your nerves or to get [...] [facility], [address] [place] [address] Suhail Brock MD [address] [facility] [address] [place] [address] 01/24/2026 4:40 PM EDT Office Visit [facility] [address] [facility], [address] [place] [address] Moustapha Katz MD [address] [facility] [address] [place] [address] documented as of this encounter [...] as of this encounter Care Teams Tank Builder Relationship Specialty [place] [address] PCP - General 03/14/25 Ruma Hernández APRN [address] [place] [address] Referring Physician Gastroenterology 07/30/23 documented as of this encounter
--- OUTSIDE RECORDS SUMMARY | 2025-11-01 07:06 | XMS_ITS | Encounter Summary ---
Author Organization Healthcare Address [address] [place] [address] Care Team Providers Care Labor Economics Professor Name Role Phone Urban Brantley DO Primary Care Provider [phone] Ruma Hernández CORPORATE HEALTH CONSULTANT Unavailable [phone] Chris Medel MD Primary Care Provider [phone] Encounter Details Date Type Department Care Team (Late Contact Info) Description 03/22/2023 Orders Only External Location [address] [place] [address] Provider, External Social History Tobacco Use Types [...] [address] [facility], [address] [place] [address] Suhail Brock MD [address] [place] [address] 01/24/2026 4:40 PM EDT Office Visit Professional [employer] [place] [facility] [address] [facility], [address] [place] [address] Moustapha Katz MD [address] [facility] [address] [place] [address] documented as of this [...] documented as of this encounter Care Teams Labor Economics Professor Relationship Specialty Start Date End Date Urban Brantley DO [address] [place] [address] PCP - General 07/30/23 03/13/25 [place] [address] PCP - General 03/14/25 Ruma Hernández APRN [address] [facility] [address] [place], [place] [address] Referring Physician Gastroenterology 07/30/23 documented as of this encounter
--- OUTSIDE RECORDS SUMMARY | 2025-11-01 07:06 | XMS_ITS | Encounter Summary ---
Author Organization [facility] Address [address] [place] [address] Care Team Providers Care [employer] Wiring Technician Name Role Phone System, Provider Not [...] release of HIV test results or diagnoses. [id number] Health Encounter Details Date Type Department Care Team (Late st Contact Info) Description 09/17/2025 Refill [facility] at [facility] [address] [place] [id number] Johnny Dubois RN Social History Tobacco Use [...] medication will need to be sent to [facility] pharmacy to be filled. [place]ave [place] [...] documented as of this encounter Care Teams [employer] Wiring Technician Relationship Specialty Start Date End Date System, Provider Not In PCP - General 09/10/25 10/24/25 documented as of this encounter
--- OUTSIDE RECORDS SUMMARY | 2025-11-01 07:06 | XMS_ITS | Encounter Summary ---
Author Organization [facility] Address [address] [place] [address] Care Team Providers Care Shuttle Spotter Name Role Phone System, Provider Not In [...] release of HIV test results or diagnoses. [id number] Health Encounter Details Date Type Department Care Team (Late st Contact Info) Description 09/10/2025 Social Work [facility] Liver Transplant at [address] [address] Michelle Ho MSW, LSW Social History Tobacco [...] PSYCHOSOCIAL ASSESSMENT Support Persons: Stacy Pop (): [phone] Daniel (brother) Gloria (daughter) Urban Patterson (neighbor) Lan (son): [phone] Past and Current Life / Social Situation: [...] at [place]. He does not have any latter day, ethnic, or personal objections to accepting blood [...] Score 8 GAD7 Scores: 09/10/2025 11:09 AM [id number] Score CLAUDIA-7 Total Score 1 Reviewed results [...] discussed the patient's psychosocial evaluation with the post adoption coordinator (Ezekiel Alcantar). The patient participated in [...] number for additional needs. MADHAV Arias, TONYA [phone] TRANSPLANT PSYCH NOTEWRITER: Txp Clinic Entry Point: 03 [facility] Social Work Assessment: 01 New Patient SW Evaluation Location: 02 [facility] Patient Barriers & Recommendations: 01 No Barriers documented in this encounter Plan of Treatment Not on file documented as of this encounter Visit Diagnoses Not on filedocumented in this encounter Additional Health Concerns Assessment Noted Time PHQ-9 Depression Total Score: 8 09/10/20 11:09 AM EDT documented as of this encounter Care Teams Shuttle Spotter Relationship Specialty Start Date End Date System, Provider Not In PCP - General 09/10/25 10/24/25 documented as of this encounter
--- OUTSIDE RECORDS SUMMARY | 2025-11-01 07:06 | XMS_ITS | Encounter Summary ---
Author Organization Healthcare Address [address] [place] [address] Care Team Providers Care Chronic Condition Nurse Name Role Phone Ruma Hernández MID LEVEL CLINICIAN Unavailable Chris Medel MD Primary Care Provider [phone] Encounter Details Date Type Department Care Team (Late st Contact Info) Description 08/29/2025 Orders Only [facility] Medicine Specialties [address], [address] [place] [address] Provider, [place] [address] [place] [phone] Social History Tobacco Use Types Packs/Day Years [...] you attend [facility] or congregational services? More than 4 times per year 02/19/2025 Do you belong to any clubs o r organizations such as orthodox groups, unions, Yattosternal or athletic groups, or school groups? Yes [...] all 06/15/2025 [facility] - Occupational Stress Questionnaire [...] drink first t luisa in the morning (EYE-PROFESSOR OF BIOLOGY) to steady your nerves or to get rid of a hangover? 0 06/14/2025 CAGE Questionnaire Score 0 025 Utilities Answer Date Recorded In the past 12 months has th e [employer], gas, oil, or water [employer] threatened to shut off services in your [...] [address] [facility], [address] [place] [address] Suhail Brock MD [address] [facility] [address] [place] [address] 01/24/2026 4:40 PM EDT Office Visit [facility] [address] [facility], [address] [place] [address] Moustapha Katz MD [address] [facility] [address] [place] [address] documented as of this encounter Procedures Procedure Name Priority Date/Time Associated Diagnosis Comments COMPLETE METABOLIC PROFILE (CMP) Routine 08/29/2025 12:13 PM EDT PROTHROMBIN TIME(PT) / INR Routine 08/29/2025 11:11 AM EDT CBC WITH AUTO DIFFERENTIAL Routine 08/29/2025 11:11 AM EDT documented in this encounter Results * COMPLETE METABOLIC PROFILE (CMP) (08/29/2025 12:13 PM EDT) [facility] Provider LAB BLOOD ORDERABLES Final R esult * Prothrombin Time/INR (08/29/2025 11:11 AM EDT) Blood Venous blood specimen / Unknown [facility] Provider LAB BLOOD ORDERABLES Final R esult * CBC and Differential (08/29/2025 11:11 AM EDT) Blood Venous blood specimen / Unknown Result [facility] Provider LAB BLOOD ORDERABLES Final R [...] documented as of this encounter Care Teams Chronic Condition Nurse Relationship Specialty [place] [address] PCP - General 03/14/25 Ruma Hernández APRN [address] [address] Referring Physician Gastroenterology 07/30/23 documented as of this encounter
--- OUTSIDE RECORDS SUMMARY | 2025-11-01 07:06 | XMS_ITS | Encounter Summary ---
Author Organization [facility] Address [address] [place] [address] Care Team Providers Care Tool Grinder Operator Name Role Phone System, Provider Not [...] release of HIV test results or diagnoses. [id number] Reason for Visit * Reason Comments Prior Authorization Encounter Details Date Type Department Care Team (Late st Contact Info) Description 09/18/2025 Pharmacy Services [facility] [address] [place] [address] Delaney Bahena RXT Social History Tobacco Use [...] as of this encounter Care Teams Tool Grinder Operator Relationship Specialty Start Date End Date System, Provider Not In PCP - General 09/10/25 10/24/25 documented as of this encounter
--- OUTSIDE RECORDS SUMMARY | 2025-11-01 07:06 | XMS_ITS | Encounter Summary ---
Author Organization Healthcare Address [address] [place] [address] Care Team Providers Care Credit Representative Name Role Phone Urban Brantley DO Primary Care Provider [phone] Ruma Hernández GIFT CONSULTANT Unavailable [phone] Chris Medel MD Primary Care Provider [phone] Encounter Details Date Type Department Care Team (Late Contact Info) Description 05/09/2023 Orders Only External Location [address] [place] [address] Provider, External Social History Tobacco Use Types [...] Visit Medical Office Building Urology [address] [facility], [address] [place] [address] Suhail Brock MD [address] [place] [address] 01/24/2026 4:40 PM EDT Office Visit Professional [facility] [address] [facility], [address] [place] [address] Moustapha Katz MD [address] [facility] [address] [place] [address] documented as of this encounter [...] as of this encounter Care Teams Credit Representative Relationship Specialty Start Date End Date Urban Brantley DO [address] [place] [address] PCP - General 07/30/23 03/13/25 [place] [address] PCP - General 03/14/25 Ruma Hernández APRN [address] [facility] [address] [place], [place] [address] Referring Physician Gastroenterology 07/30/23 documented as of this encounter
--- OUTSIDE RECORDS SUMMARY | 2025-11-01 07:06 | XMS_ITS | Encounter Summary ---
Author Organization [facility] Address [address] [place] [address] Care Team Providers Care Fishing Rod Trimmer Name Role Phone System, Provider Not In [...] release of HIV test results or diagnoses. [id number] Health Encounter Details Date Type Department Care Team (Late st Contact Info) Description 09/11/2025 Chart Note [facility] Kidney Transplant at [address] [address] Ailin Wells Faxed Clinical for Listing/Txp Auth [...] Auth Organ: liver Listed Date: TBD Ins: [place] Cleat Blanker: pending documented in this encounter Plan of Treatment Not on file documented as of this encounter Visit Diagnoses Not on filedocumented in this encounter Additional Health Concerns Assessment Noted Time PHQ-9 Depression Total Score: 8 09/10/20 25 11:09 AM EDT documented as of this encounter Care Teams Fishing Rod Trimmer Relationship Specialty Start Date End Date System, Provider Not In PCP - General 09/10/25 10/24/25 documented as of this encounter
--- OUTSIDE RECORDS SUMMARY | 2025-11-01 07:06 | XMS_ITS | Encounter Summary ---
Author Organization [facility] Address [address] [place] [address] Care Team Providers Care Ssrs Report Developer Name Role Phone Dr. Chris Medel MD [...] release of HIV test results or diagnoses. [id number] Health Encounter Details Date Type Department Care Team (Late st Contact Info) Description 10/25/2025 Telephone [facility] Liver Transplant at [address] [address] Giovanna June RN Social History [...] the past 12 months has th e [employer], gas, oil, or water [employer] threatened to shut off services in your home? No 10/17/2025 Sex and Gender Information Value Date Recorded Sex Assigned at Not on file Legal Sex Male 3:33 PM EDT Gender Identity Not on file Sexual Orientation Not on file documented as of this encounter Progress Notes * Giovanna June RN - 10/29/2025 10:[address] Nugent he wanted to increase the FK by 2 mg every 12 hours. Informed him the level of 4 ng/gm was on 3 mg every 12 hours and the first level on 5 mg every 12 hours was still pending from an outside lab. Will hold on dose change until results are in. * Giovanna June RN - 10/25/2025 3:11 PM EST Called to check on David Pop and harvey Kumar, lab work done 10/24/25. Doing very well. No complaints. Informed of ultrasound 11/13 which they saw on MyChart and reminded him to be NPO for 8 hours. ALK Phos 149 AST 41 ALT 210 T. Bili 1.0 Hgb. 9.6 FK pending SCr. 0.90 documented in this encounter Plan of Treatment Not on file documented as of this encounter Visit Diagnoses Not on filedocumented in this encounter Additional Health Concerns Assessment Noted Time PHQ-9 Depression Total Score: 8 09/10/20 11:09 AM EDT documented as of this encounter Care Teams Ssrs Report Developer Relationship Specialty Start Date End Date Dr. Chris Medel MD [address] [place] [address] PCP - General Primary Care 10/25/25 documented as of this encounter
--- OUTSIDE RECORDS SUMMARY | 2025-11-01 07:06 | XMS_ITS ---
Author Organization [facility] Address [address] 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
--- OUTSIDE RECORDS SUMMARY | 2025-11-01 07:06 | XMS_ITS | Encounter Summary ---
Author Organization [facility] Address [address] [place] [address] Care Team Providers Care Kitchen Help Handyman Name Role Phone System, Provider Not In [...] release of HIV test results or diagnoses. [id number] Health Encounter Details Date Type Department Care Team (Late st Contact Info) Description 09/11/2025 Telephone [facility] Liver Transplant at [address] [address] Chapito Alcantar, SILVIO Social History Tobacco Use [...] documented as of this encounter Care Teams Kitchen Help Handyman Relationship Specialty Start Date End Date System, Provider Not In PCP - General 09/10/25 10/24/25 documented as of this encounter
--- OUTSIDE RECORDS SUMMARY | 2025-11-01 07:06 | XMS_ITS | Encounter Summary ---
Author Organization Healthcare Address [address] [place] [address] Care Team Providers Care Sales Counselor Name Role Phone Ruma Hernández PROPERTY CLAIMS MANAGER Unavailable [phone] Chris Medel MD Primary Care Provider [phone] Encounter Details Date Type Department Care Team (Late st Contact Info) Description 09/12/2025 Results Follow-Up [facility] Transplant Center [address] [place] [address] Meaghan Le, RN [facility] LIVER [id number] [address] [place] [address] Social History Tobacco Use Types Packs/Day Years [...] often do you attend [facility] or religion services? More than 4 times per year 02/19/2025 Do you belong to any clubs o r organizations such as islam groups, unions, [employer] or athletic groups, or school groups? Yes [...] all 06/15/2025 [facility] - Occupational Stress Questionnaire Answer [...] drink first t luisa in the morning (EYE-QUICK SKETCH ARTIST) to steady your nerves or to get rid of a hangover? 0 06/14/2025 CAGE Questionnaire Score 0 025 Utilities Answer Date Recorded In the past 12 months has th e [employer], gas, oil, or water [employer] threatened to shut off services in your [...] [facility], [address] [place] [address] Suhail Brock MD [address] [facility] [address] [place] [address] 01/24/2026 4:40 PM EDT Office Visit [employer] Bone & Mineral Metabolism [address] [facility], [address] [place] [address] Moustapha Katz MD [address] [facility] [address] [place] [address] documented as of this encounter [...] as of this encounter Care Teams Sales Counselor Relationship Specialty [place] [address] PCP - General 03/14/25 Ruma Hernández APRN [address] [place] [address] [address] [place] [address] Referring Physician Gastroenterology 07/30/23 documented as of this encounter
[2025-11-01 08:09] LABS: Albumin Level 2.9 g/dl (3.5-5.0); Chloride 104 mmol/L (98-107); Sodium 132 mmol/L (136-145)
[2025-11-01 08:10] LABS: Potassium 4.3 mmoL/L (3.5-5.1)
[2025-11-01 08:12] LABS: Alanine Aminotransferase 96 U/L (12-78); Alkaline Phosphatase 335 U/L (38-126); Anion Gap 5.3 mEq/L (5-15); Aspartate Amino Transferase 87 U/L (17-59); Bilirubin,Direct 4.8 mg/dl (0.0-0.4); Bilirubin,Indirect 2.6 mg/dL (0.0-0.9); Bilirubin,Total 7.4 mg/dl (0.2-1.3); Bilirubin,Unconjugated 2.6 mg/dL (0.0-1.1); Blood Urea Nitrogen 24 mg/dl (9-20); Calcium 8.1 mg/dl (8.4-10.2); Carbon Dioxide 27 mmol/L (22.0-30.0); Creatinine,Serum 0.90 mg/dl (0.66-1.25); Estimated Glomerular Filt Rate 85 ml/min (>60); GFR (African American) 103 ML/MIN (>60); Glucose 139 mg/dl (74-100); Phosphorous 3.1 mg/dl (2.5-4.5); Total Protein,Serum 5.7 g/dl (6.3-8.2)
[2025-11-01 14:40] LABS: Hematocrit 22.9 % (42.0-52.0); Hemoglobin 7.7 g/dL (14.1-18.0); Immature Granulocytes % 4.6 %; Mean Corpuscular HGB Conc 33.6 g/dL (31.8-35.4); Mean Corpuscular Hemoglobin 31.7 pg (27.0-31.2); Mean Corpuscular Volume 94.2 fl (80-94); Nucleated Red Blood Cells % 0.8 %; Platelet Count 122 K/mm3 (142-424); Red Blood Count 2.43 M/mm3 (4.60-6.20); Red Cell Distribution Width-SD 59.7 fL; White Blood Count 13.2 K/mm3 (4.8-10.8)
[2025-11-01 16:17] LABS: Total Cells Counted 100
[2025-11-04 03:42] LABS: Tacrolimus (FK506), Blood 11.4 ng/mL (5.0-20.0)
== END 2025-11-01 23:59 | disposition home or self-care (01) ==
LOC: LAB 06:59
PROVIDERS: PCP Family Medicine; Visit Provider Surgery
DX: K72.90 Hepatic failure, unspecified without coma (principal); M81.8 Other osteoporosis without current pathological fracture; D84.9 Immunodeficiency, unspecified; Z94.4 Liver transplant status
CPT/HCPCS: 36415; 80069; 80076; 80197; 85007; 85025

== ENCOUNTER 2025-11-02 13:27 | Outpatient (CLI) | payer BC, SELFPAY ==
--- OUTSIDE RECORDS SUMMARY | 2023-08-27 07:34 | XMS_ITS | Encounter Summary ---
[facility] Address [address] [place] [address] Care Team Providers Care Station Cleaning Porter Name Role Phone Karon Urban Jc DO Primary Care Provider +1 -[phone] Encounter Details Date Type Department Care Team (Late st Contact Info) Description 08/27/2023 8:34 AM EDT Hospital Encounter [facility] PULMONARY & CRITICAL CARE MEDICINE [address] [place] [phone] Social History Tobacco Use Types Packs/Day Years Used Date Smoking Tobacco: Former Cigarettes 2 - 2012 Smokeless Tobacco: Former Quit: 2013 Alcohol Use Standard Drinks/Week Comments Not Currently 0 (1 standard drink = 0.6 oz pur e alcohol) Abuse Screen Answer Date Recorded Unsafe at Home or Work/School Not on file Feels Threatened by Someone? Not on file 05/2024 Does Anyone Keep You from Co ntacting Others or Doint Things Outside the Home? Not on file 06/21/2024 Physical Sign of Abuse Present Not on file 0 06/21/2024 Housing Stability Answer Date Recorded Current Living Arrangements Not on file 06/2023 Potentially Unsafe Housing Conditions Not on alcides e 08/22/2023 Family and Community Support Answer Fransico e Recorded Help with Day-to-Day Activities Not on file 08/22/2023 Lonely or Isolated Not on file 08/22/2023 Employment Answer Date Recorded Do you want help finding or keeping work or a jeremi b? Not on file 08/22/2023 Disabilities Answer Date Recorded Concentrating, Remembering, or Making Decisions Difficulty Not on file 08/22/2023 Doing Errands Independently Difficulty Not on fi le 08/22/2023 Education Answer Date Recorded Help with school or training? Not on file Preferred Language Not on file 08/22/2023 Sex and Gender Information Value Date Recorded Sex Assigned at Not on file Legal Sex Male 8:26 AM EDT Gender Identity Not on file Sexual Orientation Not on file documented as of this encounter Plan of Treatment Not on file documented as of this encounter Procedures Procedure Name Priority Date/Time Associated Diagnosis Comments XR CHEST PA AND LATERAL Routine 08/27/2023 8:34 AM EDT Family history of alpha 1 antitrypsin deficiency documented in this encounter Results * XR Chest PA & Lateral (08/27/2023 8:34 AM EDT) Anatomical Region Laterality Modality Body, Chest N/A Radiographic Liseth ging Narrative 08/27/2023 10:37 AM EDT David Mena Kiesha 08/27/2023 @DATEENC@ Chest X-Ray PA & Lateral 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 Showed normal cardiac silhouette. Lung parenchyma noted without any significant pulmonary vascular congestion. No suspicious lung nodules or masses noted. No pleural effusion. No consolidation noted. Degenerative changes noted in spine. Impression: No acute cardiopulmonary disease process. Femi Andres MD Femi Andres MD [facility] ORDERA BLES Final Result documented in this encounter Visit Diagnoses Not on filedocumented in this encounter Care Teams Station Cleaning Porter Relationship Specialty Start Date End Date Urban Brantley DO [address] [place] [address] [place] [address] PCP - General Internal Medicine 03/22/23 documented as of this encounter
--- OUTSIDE RECORDS SUMMARY | 2025-09-08 19:31 | XMS_ITS | Encounter Summary ---
Author Organization [facility] Address [address] [place] [address] Care Team Providers Care Recreation Facility Attendant Name Role Phone Unknown, Attending Provider Primary Care Provide r Unavailable Source Comments This information has been disclosed [...] release of HIV test results or diagnoses. [id number] Reason for Referral * Imaging/Cardiovascular Scan (Routine) - New Request Specialty Diagnoses / Procedures Referred By Contac t Referred To Contact Radiology Procedures CT Abdomen and or Pelvis Outside Exam System, Provider Not In [address] [address] Referral ID Status Reason Start Date Expiration Date V isits Requested Visits Authorized [id number] New Request 09/08/2025 03/07/2026 1 1 Reason for Visit * Imaging/Cardiovascular Scan (Routine) - New Request Specialty Diagnoses / Procedures Referred By Contac t Referred To Contact Radiology Procedures CT Abdomen and or Pelvis Outside Exam System, Provider Not In [address] [address] Referral ID Status Reason Start Date Expiration Date V isits Requested Visits Authorized [id number] New Request 09/08/2025 03/07/2026 1 1 Encounter Details Date Type Department Care Team (Latest Contact Info) Description 09/08/2025 8:31 PM EDT - 09/08/2025 8:33 PM EDT Hospital Encounter [facility] Radiology [address] [place] [address] System, Provider Not In Discharge Disposition: Home or Self Care WITHOUT Home Care Services Social History Tobacco Use Types Packs/Day Years Used Date Smoking Tobacco: Never Smokeless Tobacco: Former Alcohol Use Standard Drinks/Week Comments Not Currently 0 (1 standard drink = 0.6 oz pur e alcohol) Sober since February 2023 Sex and Gender Information Value Date Recorded Sex Assigned at Not on file Legal Sex Male 3:33 PM EDT Gender Identity Not on file Sexual Orientation Not on file documented as of this encounter Medications at Time of Discharge carvediloL (COREG) 3.125 MG tablet Take 1 tablet (3.125 mg total) by mouth 2 times a day. 06/02/2023 09/13/2025 calcitRIOL (ROCALTROL) 0.25 MCG capsule Take 1 capsule (0.25 mcg total) by mouth. Take 1 capsule by mouth 5 times a week. Once daily Wednesday through Wednesday08/08/2025 10/22/2025 ergocalciferol (ERGOCALCIFEROL) 1,250 mcg (50,000 unit) capsule Take 1 capsule (50,000 Units total) by mouth once a week. 03/08/2025 10/22/2025 furosemide (LASIX) 20 MG tablet Take 2 tablets (40 mg total) by mouth daily. 03/13/2024 10/22/2025 omeprazole (PRILOSEC) 20 MG capsule Take 2 capsules (40 mg total) by mouth daily. 03/14/2025 10/18/2025 spironolactone (ALDACTONE) 50 MG tablet Take 3 tablets (150 mg total) by mouth daily. 03/13/2024 10/18/2025 XIFAXAN 550 mg Tab tablet Take 1 tablet (550 mg total) by mouth 2 times a day. 01/15/2025 10/18/2025 documented as of this encounter Plan of Treatment Not on file documented as of this encounter Procedures Procedure Name Priority Date/Time Associated Diagnosis Comments CT ABDOMEN AND OR PELVIS OUTSIDE EXAM Routine 09/08/2025 8:31 PM EDT documented in this encounter Results * CT Abdomen and or Pelvis Outside Exam (09/08/2025 8:31 PM EDT) Narrative 09/08/2025 8:31 PM EDT Images associated with this accession number were presented to us for comparison to an examination performed here. us Provider Not In System IMG CT ORDERABLES Final R esult documented in this encounter Visit Diagnoses Not on filedocumented in this encounter Care Teams Recreation Facility Attendant Relationship Specialty Start Date End Date Unknown, Attending Provider PCP - General 08/29/2508/16 documented as of this encounter
--- OUTSIDE RECORDS SUMMARY | 2025-09-08 19:31 | XMS_ITS | Encounter Summary ---
Author Organization [facility] Address [address] [place] [address] Care Team Providers Care Director Global Name Role Phone Unknown, Attending Provider Primary [...] release of HIV test results or diagnoses. [id number] Health Encounter Details Date Type Department Care Team (Latest Contact Info) Description 09/08/2025 8:31 PM EDT - 09/08/2025 8:33 PM EDT Hospital Encounter [facility] Radiology [address] [place] [address] System, Provider Not In Discharge Disposition: Home [...] on filedocumented in this encounter Care Teams Director Global Relationship Specialty Start Date End Date Unknown, Attending Provider PCP - General 08/29/2508/16 documented as of this encounter
--- OUTSIDE RECORDS SUMMARY | 2025-09-08 19:34 | XMS_ITS | Encounter Summary ---
Author Organization [facility] Address [address] [place] [address] Care Team Providers Care Dining Chair Seat Cushion Trimmer Name Role Phone Unknown, Attending Provider [...] release of HIV test results or diagnoses. [id number] Health Encounter Details Date Type Department Care Team (Latest Contact Info) Description 09/08/2025 8:34 PM EDT - 09/08/2025 11:59 PM EDT Hospital Encounter [facility] Radiology [address] [place] [address] System, Provider Not In Discharge Disposition: Home [...] on filedocumented in this encounter Care Teams Dining Chair Seat Cushion Trimmer Relationship Specialty Start Date End Date Unknown, Attending Provider PCP - General 08/29/2508/16 documented as of this encounter
--- OUTSIDE RECORDS SUMMARY | 2025-09-08 19:34 | XMS_ITS | Encounter Summary ---
Author Organization [facility] Address [address] [place] [address] Care Team Providers Care Heel Padder Name Role Phone Unknown, Attending Provider Primary [...] release of HIV test results or diagnoses. [id number] Reason for Referral * Imaging/Cardiovascular Scan (Routine) - New Request Specialty Diagnoses / Procedures Referred By Contac t Referred To Contact Radiology Procedures CT Abdomen and or Pelvis Outside Exam System, Provider Not In [address] [address] Referral ID Status Reason Start Date Expiration Date V isits Requested Visits Authorized [id number] New Request 09/08/2025 03/07/2026 1 1 Reason for Visit * Imaging/Cardiovascular Scan (Routine) - New Request Specialty Diagnoses / Procedures Referred By Contac t Referred To Contact Radiology Procedures CT Abdomen and or Pelvis Outside Exam System, Provider Not In [address] [address] Referral ID Status Reason Start Date Expiration Date V isits Requested Visits Authorized [id number] New Request 09/08/2025 03/07/2026 1 1 Encounter Details Date Type Department Care Team (Latest Contact Info) Description 09/08/2025 8:34 PM EDT - 09/08/2025 11:59 PM EDT Hospital Encounter [facility] Radiology [address] [place] [address] System, Provider Not In Discharge Disposition: Home [...] on filedocumented in this encounter Care Teams Heel Padder Relationship Specialty Start Date End Date Unknown, Attending Provider PCP - General 08/29/2508/16 documented as of this encounter
--- OUTSIDE RECORDS SUMMARY | 2025-09-10 09:03 | XMS_ITS | Encounter Summary ---
Author Organization [facility] Address [address] [place] [address] Care Team Providers Care Passementerie Worker Name Role Phone System, Provider Not In [...] release of HIV test results or diagnoses. [id number] Reason for Referral * Imaging/Cardiovascular Scan (Routine) - Closed Specialty Diagnoses / Procedures Referred By Gianna reyes Referred To Contact Radiology Diagnoses Pre-transplant evaluation for chronic liver disease Procedures CT Chest WO contrast [facility] Liver Transplant at [address] [address] Phone: tel: fax: Referral ID Status Reason Start Date Expiration Date Visits Re quested Visits Authorized [id number] Closed 08/13/2025 02/09/2026 1 1 Reason for Visit * Auth/Cert (Routine) Specialty Diagnoses / Procedures Referred By Gianna reyes Referred To Contact Radiology [facility] [address] [place] [address] Phone: tel: Referral ID Status Reason Start Date Expiration Date Visits Re quested Visits Authorized [id number] 1 1 Encounter Details Date Type Department Care Team (Latest Contact Info) Description 09/10/2025 10:03 AM EDT - 09/10/2025 11:59 PM EDT Hospital Encounter [facility] [address] [place] [phone] Nigel Reaves MD [address] [place] [address] Pre-transplant evaluation for chronic liver [...] within the right upper lobe with downstream pmvg-kt-nfqyaaccqtful within the paramedian right upper lobe apex. [...] documented as of this encounter Care Teams Passementerie Worker Relationship Specialty Start Date End Date System, Provider Not In PCP - General 09/10/25 10/24/25 documented as of this encounter
--- OUTSIDE RECORDS SUMMARY | 2025-09-10 11:00 | XMS_ITS | Encounter Summary ---
Author Organization [facility] Address [address] [place] [address] Care Team Providers Care Photo Mask Cleaner Name Role Phone System, Provider Not In [...] release of HIV test results or diagnoses. [id number] Health Encounter Details Date Type Department Care Team (Late st Contact Info) Description 09/10/2025 12:00 PM EDT Office Visit [facility] Anesthesia Transplant at [place] [id number] [facility] [address] [place] [address] Unknown, Attending Provider Stefan Gonzalez MD [address] [facility] [place] [address] Pre-transplant evaluation for chronic liver [...] documented in this encounter Functional Status * HIDDEN-Infusion Dashboard Answer Date of Assessment Author 127 09/10/2025 1:00 PM EDT Mercy Gonzalez MD documented as of this encounter H&P Notes * Stefan Gonzalez MD - 09/10/2025 12:00 PM EDT Images from the original note were not included. 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 Attending Physician: Stefan Gonzalez MD Date of [...] Resource Strain: Low Risk (06/15/2025) Received from [facility] Overall Financial Resource Strain (CARDIA) How hard is it for you to pay for the very basics like food, housing, medical care, and heating?: Not hard at all Food Insecurity: No Food Insecurity (06/15/2025) Received from [facility] Hunger Vital Sign Worried About Running Out of Food in the Last Year: Never true Ran Out of Food in the Last Year: Never true Transportation Needs: No Transportation Needs (06/15/2025) Received from [facility] PRAPARE - Transportation In the past 12 months, has lack of transportation kept you from medical appointments or from getting medications?: No In the past 12 months, has lack of transportation kept you from meetings, work, or from getting things needed for daily living?: No Physical Activity: Inactive (06/15/2025) Received from [facility] Exercise Vital Sign Days of Exercise per Week: 0 days Minutes of Exercise per Session: 0 min Stress: No Stress Concern Present (06/15/2025) Received from [facility] [place] of Occupational Health - Occupational Stress Questionnaire Do you feel stress - tense, restless, nervous, or anxious, or unable to sleep at night because yourmind is troubled all the time - these days?: Only a little Social Connections: Socially Integrated (06/15/2025) Received from [facility] Social Connection and Isolation Panel [NHANES] Frequency of Communication with Friends and Family: More than three times a week Frequency of Social Gatherings with Friends and Family: More than three times a week Attends Baptist Services: More than 4 times per year Active Member of Clubs or Organizations: Yes Attends Club or Organization Meetings: Not on file Marital Status: Intimate Partner Violence: Not At Risk (06/15/2025) Received from [facility] Humiliation, Afraid, Rape, and Kick questionnaire Fear of Current or Ex-Partner: No Emotionally Abused: No Physically Abused: No Sexually Abused: No Housing Stability: Low Risk (06/15/2025) Received from [facility] Housing Stability Vital Sign Unable to Pay [...] test performed by another physician/other qualified health transitional care nurse (not separately reported) Risk of Complications and/or [...] documented as of this encounter Care Teams Photo Mask Cleaner Relationship Specialty Start Date End Date System, Provider Not In PCP - General 09/10/25 10/24/25 documented as of this encounter
--- OUTSIDE RECORDS SUMMARY | 2025-09-10 12:00 | XMS_ITS | Encounter Summary ---
Author Organization [facility] Address [address] [place] [address] Care Team Providers Care Infantry Unit Leader Name Role Phone System, Provider Not In [...] release of HIV test results or diagnoses. [id number] Reason for Visit * Reason Comments Liver Transplant Evaluation Encounter Details Date Type Department Care Team (Late st Contact Info) Description 09/10/2025 1:00 PM EDT Office Visit [facility] Liver Transplant at [address] [phone] Buddy Zimmerman MD [address] [place] [address] Pre-transplant evaluation for chronic liver disease [...] 11:53 AM EDT documented in this encounter Functional Status * Pain Education Answer Date of Assessment Author No 09/10/2025 11:53 AM EDT Andrae Masters MA * Body Composition Question Answer Date of Assessment Author Weight Change (lbs) 0 09/10/2025 11:53 AM E DT Adama Masters MA * NARxCHECK Sedatives Score Answer Date of Assessment Author 010 09/10/2025 11:40 AM EDT Interfac e, Doc Flowsheet In * NARxCHECK Stimulants Score Answer Date of Assessment Author 000 09/10/2025 11:40 AM EDT Interfac e, Doc Flowsheet In * NARxCHECK Narcotics Score Answer Date of Assessment Author 030 09/10/2025 11:40 AM EDT Interfac e, Doc Flowsheet In * HIDDEN-Infusion Dashboard Answer Date of Assessment Author 127 09/10/2025 11:53 AM EDT Andrae Masters MA * 6 Minute Walk Question Answer Date of Assessment Author 6 Minute Walk Test (Feet) 1270 09/10/2025 4:45 PM EDT Chapito Alcantar RN * ROOMING FALL RISK SCORING MECHANISM Answer Date of Assessment Author 0 09/10/2025 11:53 AM EDT Andrae Masters MA documented as of this encounter Patient Instructions * Patient Instructions* [...] Hepatology Clinic Note Name: David Pop CSN: [id number] Chief Complaint: Liver Transplant Evaluation History of [...] get MELD labs today Buddy Zimmerman MD Ignition Mechanic Medicine Division of Gastroenterology and Hepatology [1] [...] - 200 mg/dL 09/10/2025 8:21 PM EDT [facility] Triglycerides 60 10 - 149 mg/dL 09/10/2025 8:21 PM EDT [facility] HDL 26(L) 60 - 92 mg/dL 09/10/2025 8:21 PM EDT [facility] Comment: LIPID PROFILE INTERPRETATION CHOLESTEROL,TOTAL(mg/dL) DESIRABLE: [...] LDL Cholesterol 97 mg/dL 8:21 PM EDT [facility] Plasma 09/10/2025 5:03 PM EDT 09/10/2025 5:52 PM EDT Narrative [facility] - 09/10/2025 8:21 PM EDT Must the patient be fasting for this test?->No LDL cholesterol calculated using the Friedewald equation. us Buddy Zimmerman MD LAB BLOOD ORDERABLES Final Resul t [facility] [address] [place] [address], [facility] * ABO/Rh (09/10/2025 5:03 PM EDT) ABO Grouping A 09/10/2025 7:26 PM EDT [facility] Rh Type Positive 09/10/2025 7:26 PM EDT [facility] Blood 09/10/2025 5:03 PM EDT 09/10/2025 6:49 PM EDT us Buddy Zimmerman MD BLOOD BANK TEST ORDERABLES Final Result [facility] [address] [facility]. [address] * AFP tumor marker (09/10/2025 5:03 PM EDT) Pathologist [facility] AFP-Tumor Marker 2.0 0.0 - 9.0 ng/mL 09/10/2025 8:52 PM EDT [facility] Serum 09/10/2025 5:03 PM EDT 09/10/2025 6:42 PM EDT Narrative [facility] - 09/10/2025 8:52 PM EDT The testing method for AFP is a chemiluminescent immunoassay manufactured by [employer] Concentrations of AFP obtained by different assay methods or kits may vary and cannot be used interchangeably. AFP results cannot be interpreted as absolute evidence of the presence or absence of malignant disease. us Buddy Zimmerman MD LAB BLOOD ORDERABLES Final Resul t Performing Organization Address [facility]/ZIP Co de Phone Number [facility] [address] * Hemoglobin A1c (09/10/2025 5:03 PM EDT) Pathologist [facility] Hemoglobin A1C 4.0 4.0 - 5.6 % 09/10/2025 11:22 PM EDT [facility] Comment: Hemoglobin A1c Interpretation Guidelines: Normal: [...] ORDERABLES Final Resul t Performing Organization Address [facility] Co de Phone Number [facility] [address] [facility]. [address] * TSH (Thyroid Stimulating Hormone) (09/10/2025 5:03 PM EDT) TSH 2.85 0.45 - 4.12 uIU/mL 09/11/2025 12:13 AM EDT [facility] Serum 09/10/2025 5:03 PM EDT 09/10/2025 6:42 PM EDT us Buddy Zimmerman MD LAB BLOOD ORDERABLES Final Resul t Performing Organization Address [facility] de Phone Number [facility] [address] [facility]. [address] * (ABNORMAL) Protime-INR (09/10/2025 5:03 PM EDT) Protime 24.2(H) 12.1 - 15.1 seconds 09/10/2025 7:00 PM EDT [facility] INR 2.0(H) 0.9 - 1.1 09/10/2025 7:00 PM EDT [facility] Comment: RECOMMENDED THERAPEUTIC RANGES USING INR : Stable oral anticoagulant therapy: 2.0 - 3.0 Mechanical prosthetic heart valve: 2.5 - 3.5 Recurrent acute myocardial infarction: 2.5 - 3.5 Plasma 09/10/2025 5:03 PM EDT 09/10/2025 6:42 PM EDT Result Neto Zimmerman MD LAB BLOOD ORDERABLES Final Resul t Performing Organization Address [facility] de Phone Number [facility] [address] [facility]. [address] * (ABNORMAL) Hepatic Function Panel (09/10/2025 5:03 PM EDT) Total Bilirubin 5.9(H) 0.0 - 1.5 mg/dL 09/10/2025 8:21 PM EDT [facility] Bilirubin, Direct 1.62(H) 0.00 - 0.40 mg/dL 09/10/2025 8:21 PM EDT [facility] AST 40(H) 13 - 39 U/L 09/10/2025 8:21 PM EDT [facility] ALT 29 7 - 52 U/L 09/10/2025 8:21 PM EDT [facility] Alkaline Phosphatase 136(H) 36 - 125 U/L 09/10/2025 8:21 PM EDT [facility] Total Protein 6.2(L) 6.4 - 8.9 g/dL 09/10/2025 8:21 PM EDT [facility] Albumin 2.1(L) 3.5 - 5.7 g/dL 09/10/2025 8:21 PM EDT [facility] Bilirubin, Indirect 4.28(H) 0.00 - 1.10 mg/dL 09/10/2025 8:21 PM EDT [facility] Plasma 09/10/2025 5:03 PM EDT 09/10/2025 5:52 PM EDT Buddy Zimmerman MD LAB BLOOD ORDERABLES Final Resul t [facility] [address] * (ABNORMAL) Basic metabolic panel (09/10/2025 5:03 PM EDT) Sodium 142 133 - 146 mmol/L 09/10/2025 8:21 PM EDT [facility] Potassium 3.8 3.5 - 5.3 mmol/L 09/10/2025 8:21 PM EDT [facility] Chloride 110 98 - 110 mmol/L 09/10/2025 8:21 PM EDT [facility] CO2 27 21 - 33 mmol/L 09/10/2025 8:21 PM EDT [facility] Comment:High lactate dehydro genase concentrations in patient samples may cause falsely increased bicarbonate results. If markedly elevated LDH is observed or suspected, please assess results in conjunction with patient`s clinical presentation. In cases of discrepant results, consider evaluating CO2 in with a blood gas order. Anion Gap 5 3 - 16 mmol/L 09/10/2025 8:21 PM EDT [facility] BUN 10 7 - 25 mg/dL 09/10/2025 8:21 PM EDT [facility] Creatinine 0.90 0.60 - 1.30 mg/dL 09/10/2025 8:21 PM EDT [facility] Glucose 79 70 - 100 mg/dL 09/10/2025 8:21 PM EDT [facility] Calcium 7.9(L) 8.6 - 10.3 mg/dL 09/10/2025 8:21 PM EDT [facility] Osmolality, Calculated 292 278 - 305 mOsm/kg 09/10/2025 8:21 PM EDT [facility] EGFR >90 09/10/2025 8:21 PM EDT [facility] Comment: As of 2022, the estimated [...] MD LAB BLOOD ORDERABLES Final Resul t [facility] [address] * (ABNORMAL) CBC (09/10/2025 5:03 PM EDT) WBC 4.2 3.8 - 10.8 10E3/uL 09/10/2025 6:57 PM EDT [facility] RBC 3.39(L) 4.20 - 5.80 10E6/uL 09/10/2025 6:57 PM EDT [facility] Hemoglobin 11.4(L) 13.2 - 17.1 g/dL 09/10/2025 6:57 PM EDT [facility] Hematocrit 33.9(L) 38.5 - 50.0 % 09/10/2025 6:57 PM EDT [facility] MCV 100.1(H) 80.0 - 100.0 fL 09/10/2025 6:57 PM EDT [facility] MCH 33.7(H) 27.0 - 33.0 pg 09/10/2025 6:57 PM EDT [facility] MCHC 33.7 32.0 - 36.0 g/dL 09/10/2025 6:57 PM EDT [facility] RDW 18.5(H) 11.0 - 15.0 % 09/10/2025 6:57 PM EDT [facility] Platelets 66(L) 140 - 400 10E3/uL 09/10/2025 6:57 PM EDT [facility] MPV 7.8 7.5 - 11.5 fL 09/10/2025 6:57 PM EDT [facility] Whole Blood 09/10/2025 5:03 PM EDT 09/10/2025 6:33 PM EDT us Buddy Zimmerman MD LAB BLOOD ORDERABLES Final Resul t [facility] [address] * ECG 12-Lead (MUSE) (09/10/2025 12:14 PM EDT) 09/10/2025 12:1 4 PM EDT Narrative MUSE - 09/10/2025 3:28 PM EDT Ventricular Rate: 64 BPM Atrial Rate: 64 BPM P-R Interval: 190 ms QRS Duration: 84 ms QT: 464 ms QTc: 478 ms P [place]: 27 degrees R [place]: 58 degrees T [place]: 22 degrees Diagnosis Line: NORMAL SINUS RHYTHM ^ NORMAL ECG ^ No previous ECGs available ^ Confirmed by MD TIP, [facility] ([id number]) on 09/10/2025 3:28:36 PM us [...] documented as of this encounter Care Teams Infantry Unit Leader Relationship Specialty Start Date End Date System, Provider Not In PCP - General 09/10/25 10/24/25 documented as of this encounter
--- OUTSIDE RECORDS SUMMARY | 2025-09-10 12:30 | XMS_ITS | Encounter Summary ---
Author Organization [facility] Address [address] [place] [address] Care Team Providers Care Fastener Technologist Name Role Phone System, Provider Not In [...] release of HIV test results or diagnoses. [id number] Health Encounter Details Date Type Department Care Team (Late st Contact Info) Description 09/10/2025 1:30 PM EDT Office Visit [facility] Liver Transplant at [address] [address] [address] Troy MD [facility] [place] [address] Alcoholic cirrhosis of liver with [...] Resource Strain: Low Risk (06/15/2025) Received from [facility] Overall Financial Resource Strain (CARDIA) How hard is it for you to pay for the very basics like food, housing, medical care, and heating?: Not hard at all Food Insecurity: No Food Insecurity (06/15/2025) Received from [facility] Hunger Vital Sign Worried About Running Out of Food in the Last Year: Never true Ran Out of Food in the Last Year: Never true Transportation Needs: No Transportation Needs (06/15/2025) Received from [facility] PRAPARE - Transportation In the past 12 months, has lack of transportation kept you from medical appointments or from getting medications?: No In the past 12 months, has lack of transportation kept you from meetings, work, or from getting things needed for daily living?: No Physical Activity: Inactive (06/15/2025) Received from [facility] Exercise Vital Sign Days of Exercise per Week: 0 days Minutes of Exercise per Session: 0 min Stress: No Stress Concern Present (06/15/2025) Received from [facility] [place] of Occupational Health - Occupational Stress Questionnaire Do you feel stress - tense, restless, nervous, or anxious, or unable to sleep at night because yourmind is troubled all the time - these days?: Only a little Social Connections: Socially Integrated (06/15/2025) Received from [facility] Social Connection and Isolation Panel [NHANES] Frequency of Communication with Friends and Family: More than three times a week Frequency of Social Gatherings with Friends and Family: More than three times a week Attends Yarsani Services: More than 4 times per year Active Member of Clubs or Organizations: Yes Attends Club or Organization Meetings: Not on file Marital Status: Intimate Partner Violence: Not At Risk (06/15/2025) Received from [facility] Humiliation, Afraid, Rape, and Kick questionnaire Fear of Current or Ex-Partner: No Emotionally Abused: No Physically Abused: No Sexually Abused: No Housing Stability: Low Risk (06/15/2025) Received from [facility] Housing Stability Vital Sign Unable to [...] further review Use and allocation of SCD, PROJECT HIRE, DCD and LDLT allografts discussed in detail. [...] in a facility that is approved by [facility] as meeting institutional coverage criteria for liver [...] from surgery (5%). I also explained the residential risks of transplantation and immunosuppression including viral infection and cancer both solid organand lymphoma. --- Lane Troy MD Transplant Slunk Skin Curerdevelopment director Section of Transplantation [facility] [1] Allergies Allergen Reactions Lisinopril Other (See [...] documented as of this encounter Care Teams Fastener Technologist Relationship Specialty Start Date End Date System, Provider Not In PCP - General 09/10/25 10/24/25 documented as of this encounter
--- OUTSIDE RECORDS SUMMARY | 2025-09-10 13:00 | XMS_ITS | Encounter Summary ---
Author Organization [facility] Address [address] [place] [id number] Care Team Providers Care Block Sawyer Name Role Phone System, Provider Not In [...] release of HIV test results or diagnoses. [id number] Reason for Visit * Reason Comments ID Consult Visit (Follow Up) Liver Transplant Pre-evaluation Encounter Details Date Type Department Care Team (Late st Contact Info) Description 09/10/2025 2:00 PM EDT Office Visit [facility] Liver Transplant at [address] [phone] Unknown, Attending Provider Navi Sims MD [address] [place] [phone] Pre-transplant evaluation for chronic liver disease [...] Disease Pre-Transplant Consultation Patient: David Pop CSN: [id number] Chief Complaint Pre-transplant evaluation, infectious History of Present Illness David Pop is a 65 y.o. 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 Childhood immunizations and illnesses: got all childhood vaccines, still has tonsils, no PE tubes. Unsure if had measles, mumps. Unsure if had VZV. Places of habitation and travel: Born in [place], no SW travel. 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 Lives with , 3 cats, does the cat litter box. No other pets. Hobbies: fish. Discussed hot tub avoidance. No known TB exposure, no homeless, no retirement, no ivdu, no healthcare work. Current vaccinations: [...] Resource Strain: Low Risk (06/15/2025) Received from [facility] Overall Financial Resource Strain (CARDIA) How hard is it for you to pay for the very basics like food, housing, medical care, and heating?: Not hard at all Food Insecurity: No Food Insecurity (06/15/2025) Received from [facility] Hunger Vital Sign Worried About Running Out of Food in the Last Year: Never true Ran Out of Food in the Last Year: Never true Transportation Needs: No Transportation Needs (06/15/2025) Received from [facility] PRAPARE - Transportation In the past 12 months, has lack of transportation kept you from medical appointments or from getting medications?: No In the past 12 months, has lack of transportation kept you from meetings, work, or from getting things needed for daily living?: No Physical Activity: Inactive (06/15/2025) Received from [facility] Exercise Vital Sign Days of Exercise per Week: 0 days Minutes of Exercise per Session: 0 min Stress: No Stress Concern Present (06/15/2025) Received from [facility] [employer] - Occupational Stress Questionnaire Do you feel stress - tense, restless, nervous, or anxious, or unable to sleep at night because yourmind is troubled all the time - these days?: Only a little Social Connections: Socially Integrated (06/15/2025) Received from [facility] Social Connection and Isolation Panel [NHANES] Frequency of Communication with Friends and Family: More than three times a week Frequency of Social Gatherings with Friends and Family: More than three times a week Attends Latter Day Services: More than 4 times per year Active Member of Clubs or Organizations: Yes Attends Club or Organization Meetings: Not on file Marital Status: Intimate Partner Violence: Not At Risk (06/15/2025) Received from [facility] Humiliation, Afraid, Rape, and Kick questionnaire Fear of Current or Ex-Partner: No Emotionally Abused: No Physically Abused: No Sexually Abused: No Housing Stability: Low Risk (06/15/2025) Received from [facility] Housing Stability Vital Sign Unable [...] antibody, IgG (09/10/2025 5:03 PM EDT) Pathologist [facility] Varicella IgG Positive( A) Negative S/CO 09/10/2025 [...] ORDERABLES Final Resu lt Performing Organization Address [facility] Co de Phone Number [facility] [address] * QuantiFERON TB2 Ag (09/10/2025 5:03 PM EDT) Pathologist [facility] QuantiFERON TB2 Ag Value 0.09 09/12/2025 1:19 PM EDT [facility] Plasma 09/10/2025 5:03 PM EDT 09/10/2025 6:29 PM EDT Navi Sims MD LAB BLOOD ORDERABLES Final Resu lt Performing Organization Address City/[facility]/ZIP Co de Phone Number [facility] [address] * QuantiFERON TB1 Ag (09/10/2025 5:03 PM EDT) QuantiFERON TB1 Ag Value 0.08 09/12/2025 1:19 PM EDT [facility] Plasma 09/10/2025 5:03 PM EDT 09/10/2025 6:29 PM EDT Navi Sims MD LAB BLOOD ORDERABLES Final Resu lt [facility] [address] [facility]. [address] * QuantiFERON Nil (09/10/2025 5:03 PM EDT) Pathologist [facility] QuantiFERON Nil 0.02 1:19 PM EDT [facility] Plasma 09/10/2025 5:03 PM EDT 09/10/2025 6:29 PM EDT Navi Sims MD LAB BLOOD ORDERABLES Final Resu lt Performing Organization Address City/[facility]/ZIP Co de Phone Number [facility] [address] [facility]. [address] * QuantiFERON Mitogen (09/10/2025 5:03 PM EDT) Pathologist [facility] QuantiFERON Interpretation Negative Negative 09/12/2025 1:19 [...] ORDERABLES Final Resu lt Performing Organization Address City/[facility]/ZIP Co de Phone Number [facility] [address] [facility]. [address] * (ABNORMAL) Strongyloides Ab (09/10/2025 5:03 PM EDT) Pathologist [facility] Strongyloides Ab Positive( A) Negative 09/17/2025 2:56 PM EST [facility] Serum 09/10/2025 5:03 PM EDT 09/17/2025 3:07 PM EST Narrative [facility] - 09/17/2025 3:07 PM EST PERFORMED AT: [address] [id number] MARKER SHIPMENTS: Kevin Holguin MD PHONE: [phone] Navi Sims MD LAB BLOOD ORDERABLES Final Resu lt Performing Organization Address City/[facility] Co de Phone Number [facility] [address] [facility]. [address] * Toxoplasma gondii antibody, IgG (09/10/2025 5:03 PM EDT) Pathologist [facility] Toxoplasma Gondii IgG <3.0 0.0 - 7.1 IU/mL 09/12/2025 6:21 AM EDT [facility] Comment: Negative <7.2 Equivocal 7.2 - 8.7 Positive >8.7 Serum 09/10/2025 5:03 PM EDT 09/12/2025 7:06 AM EDT Narrative [facility] - 09/12/2025 7:06 AM EDT PERFORMED AT: [facility] [address] [id number] MARKER SHIPMENTS: Mateo Miller, PhD PHONE: [phone] Navi iSms MD LAB BLOOD ORDERABLES Final Resu lt [facility] [address]. [address] * Syphilis Screening (Trepia) (09/10/2025 5:03 PM EDT) Treponema Pallidum Negative Negative 09/10/2025 11:55 PM EDT [facility] Comment: No serological evidence of infection with Treponema pallidum (incubating or early primary syphilis cannot be excluded). Serum 09/10/2025 5:03 PM EDT 09/10/2025 10:26 PM EDT Navi Sims MD LAB BLOOD ORDERABLES Final Resu lt [facility] [address] [facility] * (ABNORMAL) MMR(IgG) Panel (Measles, Mumps, [...] - 13.40 U/mL 09/10/2025 11:50 PM EDT [facility] Serum 09/10/2025 5:03 PM EDT 09/10/2025 10:26 PM EDT Narrative [facility] - 09/10/2025 11:51 PM EDT Presence [...] MD LAB BLOOD ORDERABLES Final Resu lt [facility] [address] [place] [address], [facility] documented in this encounter Visit Diagnoses [...] documented as of this encounter Care Teams Block Sawyer Relationship Specialty Start Date End Date System, Provider Not In PCP - General 09/10/25 10/24/25 documented as of this encounter
--- OUTSIDE RECORDS SUMMARY | 2025-09-10 15:35 | XMS_ITS | Encounter Summary ---
Author Organization [facility] Address [address] [place] [id number] Care Team Providers Care Chip Frier Name Role Phone System, Provider Not In [...] release of HIV test results or diagnoses. [id number] Reason for Visit * Auth/Cert (Routine) Specialty Diagnoses / Procedures Referred By Gianna reyes Referred To Contact Radiology [facility] [address] [place] [address] Phone: tel: Referral ID Status Reason Start Date Expiration Date Visits Re quested Visits Authorized [id number] 1 1 Encounter Details Date Type Department Care Team (Late st Contact Info) Description 09/10/2025 4:35 PM EDT Specimen [facility] Outreach Lab [address] [place] [id number] Buddy Zimmerman MD [address] [place] [address] Alcoholic cirrhosis of liver with [...] - 0.99 S/CO 09/10/2025 11:49 PM EDT [facility] Serum 09/10/2025 5:03 PM EDT 09/10/2025 10:26 PM EDT Navi Sims MD LAB BLOOD ORDERABLES Final Resu lt [facility] [address] [place] [address]. [address] * QuantiFERON TB2 Ag (09/10/2025 5:03 PM EDT) QuantiFERON TB2 Ag Value 0.09 09/12/2025 1:19 PM EDT [facility] Plasma 09/10/2025 5:03 PM EDT 09/10/2025 6:29 PM EDT Navi Sims MD LAB BLOOD ORDERABLES Final Resu lt [facility] [address] [facility]. [address] * QuantiFERON TB1 Ag (09/10/2025 5:03 PM EDT) QuantiFERON TB1 Ag Value 0.08 09/12/2025 1:19 PM EDT [facility] Plasma 09/10/2025 5:03 PM EDT 09/10/2025 6:29 PM EDT Navi Sims MD LAB BLOOD ORDERABLES Final Resu lt [facility] [address] [place] [address]. [address] * QuantiFERON Nil (09/10/2025 5:03 PM EDT) QuantiFERON Nil 0.02 1:19 PM EDT [facility] Plasma 09/10/2025 5:03 PM EDT 09/10/2025 6:29 PM EDT Navi Sims MD LAB BLOOD ORDERABLES Final Resu lt Performing Organization Address [facility]/ZIP Co de Phone Number [facility] [address] [facility]. [address] * QuantiFERON Mitogen (09/10/2025 5:03 PM EDT) Pathologist [facility] QuantiFERON Interpretation Negative Negative 09/12/2025 1:19 PM EDT [facility] Comment:Negative result pilar cates M. tuberculosis infection is NOT likely. Negative results do not preclude tuberculosis infection (especially in immunosuppressed patients). Negative results have a TB antigen minus Nil value less than 0.35 IU/mL. In cases with high suspicion of disease, retesting or additional testing with medical evaluation may be useful. QuantiFERON Mitogen 8.77 09/12 1:19 PM EDT [facility] Plasma 09/10/2025 5:03 PM EDT 09/10/2025 6:29 PM EDT Narrative [facility] - 09/12/2025 1:19 PM [...] MD LAB BLOOD ORDERABLES Final Resu lt [facility] [address] [place] [address], [facility] * (ABNORMAL) Strongyloides Ab (09/10/2025 5:03 PM EDT) Pathologist [facility] Strongyloides Ab Positive( A) Negative 09/17/2025 2:56 PM EST [facility] Serum 09/10/2025 5:03 PM EDT 09/17/2025 3:07 PM EST Narrative [facility] - 09/17/2025 3:07 PM EST PERFORMED AT: [facility] [address] [id number] TRAINING PROJECT MANAGER: Kevin Holguin MD PHONE: [phone] Navi Sims MD LAB BLOOD ORDERABLES Final Resu lt Performing Organization Address [facility] Co de Phone Number [facility] [address] [facility]. [address] * Toxoplasma gondii antibody, IgG (09/10/2025 5:03 PM EDT) Toxoplasma Gondii IgG <3.0 0.0 - 7.1 IU/mL 09/12/2025 6:21 AM EDT [facility] Comment: Negative <7.2 Equivocal 7.2 - 8.7 Positive >8.7 Serum 09/10/2025 5:03 PM EDT 09/12/2025 7:06 AM EDT Narrative [facility] - 09/12/2025 7:06 AM EDT PERFORMED AT: [facility] [address] [id number] TRAINING PROJECT MANAGER: Mateo Miller, PhD PHONE: [phone] Navi Sims MD LAB BLOOD ORDERABLES Final Resu lt Performing Organization Address City/[facility]/ZIP Co de Phone Number [facility] [address] [facility]. [address] * Syphilis Screening (Trepia) (09/10/2025 5:03 PM EDT) Treponema Pallidum Negative Negative 09/10/2025 11:55 PM EDT [facility] Comment: No serological evidence of infection with Treponema pallidum (incubating or early primary syphilis cannot be excluded). Serum 09/10/2025 5:03 PM EDT 09/10/2025 10:26 PM EDT Navi Sims MD LAB BLOOD ORDERABLES Final Resu lt [facility] [address] [facility]. [address] * (ABNORMAL) MMR(IgG) Panel (Measles, Mumps, Rubella) (09/10/2025 5:03 PM EDT) Mumps IgG Positive 09/10/2025 11:51 PM EDT [facility] MUMPS IGG NUM >300.00(H) 0.0 - 8.9 U/mL 09/10/2025 11:51 PM EDT [facility] Rubella IgG Scr Positive 09/10/2025 11:51 PM EDT [facility] RUB NUM 30.20(H) 0.0 - 0.8 INDEX 09/10/2025 11:51 PM EDT [facility] Rubeola Ab, IgG Positive 09/10/2025 11:50 PM EDT [facility] RUB IGG NUM >300.00(H) 0.00 - 13.40 U/mL 09/10/2025 11:50 PM EDT [facility] Serum 09/10/2025 5:03 PM EDT 09/10/2025 10:26 PM EDT Narrative [facility] - 09/10/2025 11:51 PM EDT Presence [...] MD LAB BLOOD ORDERABLES Final Resu lt [facility] [address] [facility]. [address] * (ABNORMAL) Lipid Profile (09/10/2025 5:03 [...] - 149 mg/dL 09/10/2025 8:21 PM EDT [facility] HDL 26(L) 60 - 92 mg/dL 09/10/2025 8:21 PM EDT [facility] Comment: LIPID PROFILE INTERPRETATION CHOLESTEROL,TOTAL(mg/dL) DESIRABLE: [...] LDL Cholesterol 97 mg/dL 8:21 PM EDT [facility] Plasma 09/10/2025 5:03 PM EDT 09/10/2025 5:52 PM EDT Narrative [facility] - 09/10/2025 8:21 PM EDT Must the patient be fasting for this test?->No LDL cholesterol calculated using the Friedewald equation. us Buddy Zimmerman MD LAB BLOOD ORDERABLES Final Resul t [facility] [address] * ABO/Rh (09/10/2025 5:03 PM EDT) ABO Grouping A 09/10/2025 7:26 PM EDT [facility] Rh Type Positive 09/10/2025 7:26 PM EDT [facility] Blood 09/10/2025 5:03 PM EDT 09/10/2025 6:49 PM EDT Buddy Zimmerman MD BLOOD BANK TEST ORDERABLES Final Result [facility] [address] * AFP tumor marker (09/10/2025 5:03 PM EDT) Pathologist [facility] AFP-Tumor Marker 2.0 0.0 - 9.0 ng/mL 09/10/2025 8:52 PM EDT [facility] Serum 09/10/2025 5:03 PM EDT 09/10/2025 6:42 PM EDT Narrative [facility] - 09/10/2025 8:52 PM EDT The testing method for AFP is a chemiluminescent immunoassay manufactured by [employer] Concentrations of AFP obtained by different assay methods or kits may vary and cannot be used interchangeably. AFP results cannot be interpreted as absolute evidence of the presence or absence of malignant disease. Buddy Zimmerman MD LAB BLOOD ORDERABLES Final Resul t Performing Organization Address City/[facility] Co de Phone Number [facility] [address] * Hemoglobin A1c (09/10/2025 5:03 PM EDT) Pathologist [facility] Hemoglobin A1C 4.0 4.0 - 5.6 % 09/10/2025 11:22 PM EDT [facility] Comment: Hemoglobin A1c Interpretation [...] ORDERABLES Final Resul t Performing Organization Address City/[facility] Co de Phone Number [facility] [address] [facility]. [address] * TSH (Thyroid Stimulating Hormone) (09/10/2025 5:03 PM EDT) TSH 2.85 0.45 - 4.12 uIU/mL 09/11/2025 12:13 AM EDT [facility] Serum 09/10/2025 5:03 PM EDT 09/10/2025 6:42 PM EDT us Buddy Zimmerman MD LAB BLOOD ORDERABLES Final Resul t Performing Organization Address [facility] Co de Phone Number [facility] [address] [facility]. [address] * (ABNORMAL) Protime-INR (09/10/2025 5:03 PM EDT) Protime 24.2(H) 12.1 - 15.1 seconds 09/10/2025 7:00 PM EDT [facility] INR 2.0(H) 0.9 - 1.1 09/10/2025 7:00 PM EDT [facility] Comment: RECOMMENDED THERAPEUTIC RANGES USING INR : Stable oral anticoagulant therapy: 2.0 - 3.0 Mechanical prosthetic heart valve: 2.5 - 3.5 Recurrent acute myocardial infarction: 2.5 - 3.5 Plasma 09/10/2025 5:03 PM EDT 09/10/2025 6:42 PM EDT Result Neto Zimmerman MD LAB BLOOD ORDERABLES Final Resul t Performing Organization Address [facility] Co de Phone Number [facility] [address] [facility]. [address] * (ABNORMAL) Hepatic Function Panel (09/10/2025 5:03 PM EDT) Total Bilirubin 5.9(H) 0.0 - 1.5 mg/dL 09/10/2025 8:21 PM EDT [facility] Bilirubin, Direct 1.62(H) 0.00 - 0.40 mg/dL 09/10/2025 8:21 PM EDT [facility] AST 40(H) 13 - 39 U/L 09/10/2025 8:21 PM EDT [facility] ALT 29 7 - 52 U/L 09/10/2025 8:21 PM EDT [facility] Alkaline Phosphatase 136(H) 36 - 125 U/L 09/10/2025 8:21 PM EDT [facility] Total Protein 6.2(L) 6.4 - 8.9 g/dL 09/10/2025 8:21 PM EDT [facility] Albumin 2.1(L) 3.5 - 5.7 g/dL 09/10/2025 8:21 PM EDT [facility] Bilirubin, Indirect 4.28(H) 0.00 - 1.10 mg/dL 09/10/2025 8:21 PM EDT [facility] Plasma 09/10/2025 5:03 PM EDT 09/10/2025 5:52 PM EDT us Buddy Zimmerman MD LAB BLOOD ORDERABLES Final Resul t [facility] [address] * (ABNORMAL) Basic metabolic panel (09/10/2025 5:03 PM EDT) Sodium 142 133 - 146 mmol/L 09/10/2025 8:21 PM EDT [facility] Potassium 3.8 3.5 - 5.3 mmol/L 09/10/2025 8:21 PM EDT [facility] Chloride 110 98 - 110 mmol/L 09/10/2025 8:21 PM EDT [facility] CO2 27 21 - 33 mmol/L 09/10/2025 8:21 PM EDT [facility] Comment:High lactate dehydro genase concentrations in patient samples may cause falsely increased bicarbonate results. If markedly elevated LDH is observed or suspected, please assess results in conjunction with patient`s clinical presentation. In cases of discrepant results, consider evaluating CO2 in with a blood gas order. Anion Gap 5 3 - 16 mmol/L 09/10/2025 8:21 PM EDT [facility] BUN 10 7 - 25 mg/dL 09/10/2025 8:21 PM EDT [facility] Creatinine 0.90 0.60 - 1.30 mg/dL 09/10/2025 8:21 PM EDT [facility] Glucose 79 70 - 100 mg/dL 09/10/2025 8:21 PM EDT [facility] Calcium 7.9(L) 8.6 - 10.3 mg/dL 09/10/2025 8:21 PM EDT [facility] Osmolality, Calculated 292 278 - 305 mOsm/kg 09/10/2025 8:21 PM EDT [facility] EGFR >90 09/10/2025 8:21 PM EDT [facility] Comment: As of 2022, [...] PM EDT 09/10/2025 5:52 PM EDT us uBddy Zimmerman MD LAB BLOOD ORDERABLES Final Resul t [facility] [address] * (ABNORMAL) CBC (09/10/2025 5:03 PM EDT) WBC 4.2 3.8 - 10.8 10E3/uL 09/10/2025 6:57 PM EDT [facility] RBC 3.39(L) 4.20 - 5.80 10E6/uL 09/10/2025 6:57 PM EDT [facility] Hemoglobin 11.4(L) 13.2 - 17.1 g/dL 09/10/2025 6:57 PM EDT [facility] Hematocrit 33.9(L) 38.5 - 50.0 % 09/10/2025 6:57 PM EDT [facility] MCV 100.1(H) 80.0 - 100.0 fL 09/10/2025 6:57 PM EDT [facility] MCH 33.7(H) 27.0 - 33.0 pg 09/10/2025 6:57 PM EDT [facility] MCHC 33.7 32.0 - 36.0 g/dL 09/10/2025 6:57 PM EDT [facility] RDW 18.5(H) 11.0 - 15.0 % 09/10/2025 6:57 PM EDT [facility] Platelets 66(L) 140 - 400 10E3/uL 09/10/2025 6:57 PM EDT [facility] MPV 7.8 7.5 - 11.5 fL 09/10/2025 6:57 PM EDT [facility] Whole Blood 09/10/2025 5:03 PM EDT 09/10/2025 6:33 PM EDT us Buddy Zimmerman MD LAB BLOOD ORDERABLES Final Resul t [facility] [address] [place] [facility]. [address] documented in this encounter Visit Diagnoses Diagnosis Alcoholic cirrhosis of liver with ascites (CMS-HCC) Pre-transplant evaluation for chronic liver disease documented in this encounter Additional Health Concerns Assessment Noted Time PHQ-9 Depression Total Score: 8 09/10/20 11:09 AM EDT documented as of this encounter Care Teams Chip Frier Relationship Specialty Start Date End Date System, Provider Not In PCP - General 09/10/25 10/24/25 documented as of this encounter
--- OUTSIDE RECORDS SUMMARY | 2025-09-12 07:47 | XMS_ITS | Encounter Summary ---
Author Organization Healthcare Address [address] [place] [address] Care Team Providers Care Sales Program Manager Name Role Phone Ruma Hernández SUPERVISOR REAL ESTATE OFFICE Unavailable [phone] Chris Medel MD Primary Care Provider [phone] Reason for Referral * Imaging (Routine) - Closed Specialty Diagnoses / Procedures Referred By Gianna reyes Referred To Contact Radiology Diagnoses Pre-liver transplant, listed Procedures MR Abdomen w and wo IV Contrast Portia Maguire MD [address] [address] Phone: tel: fax: Referral ID Status Reason Start Date Expiration Date Visits Re quested Visits Authorized [id number] Closed 09/05/2025 03/07/2027 1 1 Reason for Visit * Imaging (Routine) - Closed Specialty Diagnoses / Procedures Referred By Gianna reyes Referred To Contact Radiology Diagnoses Pre-liver transplant, listed Procedures MR Abdomen w and wo IV Contrast Portia Maguire MD [address] [address] Phone: tel: fax: Referral ID Status Reason Start Date Expiration Date Visits Re quested Visits Authorized [id number] Closed 09/05/2025 03/07/2027 1 1 Encounter Details Date Type Department Care Team (Latest Contact Info) Description 09/12/2025 8:47 AM EDT - 09/12/2025 11:59 PM EDT Hospital Encounter [facility] [address] [place] [address] Pre-liver transplant, listed Discharge Disposition: Home or [...] Date Recorded Patient Health Questionnaire-2 Score 0 09/12/2025 PHQ-9 Answer Date Recorded Patient Health Questionnaire-9 [...] week 06/15/2025 How often do you attend [facility] or denominational services? More than 4 times [...] drink first t luisa in the morning (EYE-LCAC RADAR OPERATOR/NAVIGATOR) to steady your nerves or to get [...] pleasure in doing things Not at all 09/12/2025 8:14 AM EDT Audie Atkinson Feeling down, depressed, or hopeless Not at all 09/12/2025 8:14 AM EDT Audie Atkinson Patient Health Questionnaire -2 Score 0 09/12/2025 8:14 AM EDT Audie Atkinson documented as of this encounter Medications at Time of Discharge calcitriol (Rocaltrol) 0.25 MCG capsule Take 1 capsule by mouth 5 times a week. Once daily Wednesday through Wednesday 20 capsule 5 08/08/2025 Calcium-Vitamin D (CALTRATE 600 PLUS-VIT D PO) Take 600 mg by mouth 2 times a day. carvedilol (Coreg) 3.125 MG tabletIndications :Cirrhosis of liver with ascites, unspecified hepatic cirrhosis type Take 1 tablet (3.125 mg) by mouth 2 (two) times a day with meals. 60 tablet 11 09/13/2024 ergocalciferol (Vitamin D-2) 1.25 MG (04542 UT) capsule Take 1 capsule by mouth [...] tablets by mouth daily. 270 each 1 06/25/2025 6 Xifaxan 550 MG tablet Take 1 tablet by mouth 2 times a day. 01/15/2025 5 documented as of this encounter Miscellaneous Notes * Brenda Keller N - 09/12/2025 9:31 AM EDT Images from the original note were not included. 1639 Caring for Yourself after Contrast Imaging If you had ORAL contrast: ? You can go back to your normal diet and activities as tolerated. ? Drink plenty of fluids, unless told otherwise. If you had IV contrast: ? You can go back to your normal diet and activities as tolerated. ? Drink plenty of fluids, unless told otherwise. ? Leave a bandage on the site for 30 minutes (where the IV was inserted or blood was drawn). If you had Intravesical (bladder) contrast: ? Return to normal diet and activity. What you need to know about delayed reaction to IV contrast What is IV Contrast? ? Contrast is a dye that is put into your body through an IV. ? It is used for imaging scans such as CT scans and MRIs. ? The contrast makes blood vessels, organs and other parts of your body show up better on the scan. What do I need to do after IV contrast? ? Drink lots of fluids. This will help flush the contrast out of your system. ? Drink 2-3 extra glasses or bottles of water within 4 hours of your scan. What is a contrast reaction? ? A contrast reaction is a bad side effect from the contrast dye. ? It is rare but it does happen. ? They can be mild - such as sneezing, itching, or hives. ? They can be severe - such as trouble breathing, throat swelling, and irregular heart beat. When do these reactions happen? ? They often happen right after the contrast is injected. ? Some happen hours after going home. Go to the nearest Emergency Department right away if you have any of these symptoms after you leavethe clinic or hospital. ? Sneezing ? Itching in your mouth, throat, eyes, ears, or skin ? Rash or hives ? Throwing up or stomach sickness ? High heart rate or ?racing? of your heart ? Feeling dizzy or woozy ? Feeling short of breath or like you can?t take a deep breath ? Feeling very anxious for no other reason It is very important that these reactions be treated. Tell the doctor or nurse that you are having a reaction to IV contrast dye. Do not ignore any sign of a reaction! All reactions must be assessed by a doctor. Call [phone] if you are alone and your reaction is more than mild sneezing or itching. If you have a mild reaction, call to speak with a Radiologist, explain that you havehad a contrast reaction, as this needs to be added to your medical record. documented in this encounter Plan of Treatment Upcoming Encounters Date Type Department Care Team (Late st Contact Info) Description 11/27/2025 3:45 PM EST Office Visit Medical Office Building Urology [address] [facility], [address] [place] [address] Suhail Brock MD [address] [place] [address] 01/24/2026 4:40 PM EDT Office Visit [facility] [address] [facility], [address] [place] [address] Moustapha Katz MD [address] [facility] [address] [place] [address] documented as of this encounter Procedures Procedure Name Priority Date/Time Associated Diagnosis Comments MR ABDOMEN W AND WO IV CONTRAST Routine 09/12/2025 9:42 AM EDT Pre-liver transplant, listed documented in this encounter Results * MR Abdomen w and wo IV Contrast (09/12/2025 9:42 AM EDT) Anatomical Region Laterality Modality Abdomen Magnetic Resonan ce Impressions 09/12/2025 11:41 AM EDT Cirrhosis without suspicious focal LR-4 or LR-5 observations. Patent hepatic vasculature. Similar to slightly increased ascites when compared to CT 7 months prior. Otherwise, unchanged stigmata of of advanced portal hypertension including prominent periesophageal and splenorenal varices. CRITICAL RESULT: No. COMMUNICATION: Per this written [...] Equivocal - Treated, equivocally viable LI-RADS TR Viable - Treated, probably or [...] are consistent with and integrated into the [place] Association for the Study of Liver Diseases (AASLD) 2018 hepatocellular carcinoma (HCC) clinical practice guidance. LI-RADS criteria and documentation are available online at www.acr.org/Quality-Safety/Resources/LIRADS. This report utilizes LI-RADS version 2018. *OPTN and LI-RADS criteria for definite HCC [...] with the final edited report. Drafted by Pam Michelle MD on 09/12/2025 10:00 AM Final report signed by Luh Fuller MD on 09/12/2025 11:41 AM Narrative 09/12/2025 11:41 AM EDT CLINICAL INDICATION: hcc surveillance, elevated ALP TECHNIQUE: MR imaging of the abdomen was performed without and with intravenous contrast material using the following sequences: coronal single shot T2 weighted fast spin echo, axial T2 weighted sequences with and without fat saturation, axial dual phase gradient echo, pre and dynamic postcontrast 3-D T1 weighted gradient echo with fat saturation (axial and coronal) and axial diffusion. 10 mL of Gadavist was administered. Examination is compromised by the following factor(s): Slightly delayed arterial phase timing COMPARISON: CT abdomen and pelvis 03/14/2025 FINDINGS: Liver: Cirrhosis without suspicious focal LR-4 lateral-5 observations, acknowledging relatively delayed arterial phase timing. Hepatic Vasculature: Hepatic arterial anatomy is standard. The portal and hepatic veins are patent. Multistation portosystemic varices including prominent splenorenal and paraesophageal collaterals, similar in distribution and size to CT 7 months prior. Extrahepatic Findings: Cholelithiasis without evidence of acute cholecystitis. No intra or extrahepatic biliary ductal dilatation. Borderline enlarged spleen measuring 13.4 in axial oblique long axis. There is a presumed 9-10 mm ventral proximal pancreatic body sidebranch IPMN on 4:18 without overt worrisome features, much better seen on the current exam but grossly unchanged in retrospect from comparison CT. Although challenging to visualize amidst portosystemic collaterals, no suspicious sizable adrenal nodules. Unchanged thick urothelial enhancement and mild left hydronephrosis related to the chronic left renal pelvic calculus which better seen on comparison CT. Grossly preserved major arterial and venous flow voids within the included abdomen. Small volume ascites that is grossly similar to slightly increased from prior CT. No focal acute or aggressive musculoskeletal findings. Portal colopathy and enteropathy. Generalized body wall edema and bilateral gynecomastia. Procedure Note Luh Fuller MD - 09/12/2025 CLINICAL INDICATION: hcc surveillance, elevated ALP TECHNIQUE: MR imaging of the abdomen was performed without and with intravenouscontrast material using the following sequences: coronal single shot [id number] fast spin echo, axial T2 weighted sequences with and without fatsaturation, axial dual phase gradient echo, pre and dynamic postcontrast3-D T1 weighted gradient echo with fat saturation (axial and coronal) andaxial diffusion. 10 mL of Gadavist was administered. Examination is compromised by the following factor(s): Slightly delayedarterial phase timing COMPARISON: CT abdomen and pelvis 03/14/2025 FINDINGS: Liver: Cirrhosis without suspicious focal LR-4 lateral-5 observations,acknowledging relatively delayed arterial phase timing. Hepatic Vasculature: Hepatic arterial anatomy is standard. The portal andhepatic veins are patent. Multistation portosystemic varices includingprominent splenorenal and paraesophageal collaterals, similar indistribution and size to CT 7 months prior. Extrahepatic Findings: Cholelithiasis without evidence of acute cholecystitis. No intra orextrahepatic biliary ductal dilatation. Borderline enlarged spleenmeasuring 13.4 in axial oblique long axis. There is a presumed 9-10 mmventral proximal pancreatic body sidebranch IPMN on 4:18 without overtworrisome features, much better seen on the current exam but grosslyunchanged in retrospect from comparison CT. Although challenging tovisualize amidst portosystemic collaterals, no suspicious sizable adrenalnodules. Unchanged thick urothelial enhancement and mild lefthydronephrosis related to the chronic left renal pelvic calculus whichbetter seen on comparison CT. Grossly preserved major arterial and venousflow voids within the included abdomen. Small volume ascites that isgrossly similar to slightly increased from prior CT. No focal acute oraggressive musculoskeletal findings. Portal colopathy and enteropathy.Generalized body wall edema and bilateral gynecomastia. IMPRESSION: Cirrhosis without suspicious focal LR-4 or LR-5 observations. Patent hepatic vasculature. Similar to slightly increased ascites when compared to CT 7 months prior.Otherwise, unchanged stigmata of of advanced portal hypertension includingprominent periesophageal and splenorenal varices. CRITICAL RESULT: No. COMMUNICATION: Per this written [...] Equivocal - Treated, equivocally viable LI-RADS TR Viable - Treated, probably or [...] are consistent with and integrated into the [place] Associationfor the Study of Liver Diseases (AASLD) 2018 hepatocellular carcinoma(HCC) clinical practice guidance. LI-RADS criteria and documentation areavailable online at www.acr.org/Quality-Safety/Resources/LIRADS. Thisreport utilizes LI-RADS version 2018. *OPTN and LI-RADS criteria for definite HCC are identical except for:10-19 mm observations with nonrim APHE + nonperipheral washout butwithout enhancing capsule or threshold growth. Implication: Some LR-5observations do not count as OPTN 5. By electronically signing this report, I, the attending physician, alec I have personally reviewed the images/data for the aboveexamination(s) and agree with the final edited report. Drafted by Pam Michelle MD on 09/12/2025 10:00 AM Final report signed by Luh Fuller MD on 09/12/2025 11:41 AM Portia Maguire MD IM MRI PROCEDURES Final Result documented in this encounter Visit Diagnoses Diagnosis Pre-liver transplant, listed documented in this encounter Administered Medications Inactive Administered Medications - up to 3 most recent administrations Medication Order MAR Action Action Date Dose Rate Site gadobutrol (Gadavist) injection 10 mL 10 mL (0.1 mL/kg 100 kg), Intravenous, Once in imaging, 1 dose, Starting on Wed09/12/25 at 0902, Until Wed09/12/25 at 0930, Routine, Imaging Protocol Orders Given 09/12/2025 9:30 AM EDT 10 mL documented in this encounter Additional Health Concerns Assessment Noted Time PHQ-9 Depression Total Score: 0 10/04/20 24 12:32 PM EST A fall risk assessment has been complete d for the patient 09/12/2025 8:14 AM EDT A Body Mass Index follow-up plan has been documented for the patient 09/17/2025 1:33 PM EST documented as of this encounter Care Teams Sales Program Manager Relationship Specialty [place] [id number] PCP - General 03/14/25 Ruma Hernández APRN [address] [place] [address] Referring Physician Gastroenterology 07/30/23 documented as of this encounter
--- OUTSIDE RECORDS SUMMARY | 2025-09-12 09:00 | XMS_ITS | Encounter Summary ---
Author Organization Healthcare Address [address] [place] [address] Care Team Providers Care Social Media Content Manager Name Role Phone Ruma Hernández FIBER MACHINE TENDER Unavailable [phone] Chris Medel MD Primary Care Provider [phone] Encounter Details Date Type Department Care Team (Latest Contact Info) Description 09/12/2025 10:00 AM EDT Office Visit [facility] [address] [facility] [address] [place] [address] Portia Maguire MD [address] [place] [address] Pre-liver transplant, listed (Primary Dx); [...] you attend [facility] or adventism services? More than 4 times per year 02/19/2025 Do you belong to any clubs o r organizations such as anglican groups, [employer], [employer] or athleHealthLoop groups, or school groups? Yes 02/19/2025 How [...] you attend [facility] or adventism services? More than 4 times per year 06/15/2025 Do you belong to any clubs o r organizations such as anglican groups, [employer], [employer] or athleHealthLoop groups, or school groups? Yes 06/15/2025 Attends [...] and heating? Not hard at all 06/15/2025 [facility] [place] of Occupat ional Health - Occupational Stress [...] drink first t luisa in the morning (EYE-CONSTRUCTION ASSISTANT) to steady your nerves or to get rid of a hangover? 0 06/14/2025 CAGE Questionnaire Score 0 025 Utilities Answer Date Recorded In the past 12 months has th [employer], gas, oil, or water company threatened to [...] [address], [address] [place] [address] Suhail Brock MD [address] [facility] [address] [place] [address] 01/24/2026 4:40 PM EDT Office Visit [facility] [place] [facility] [address], [address] [place] [address] Moustapha Katz MD [address] [facility] [address] [place] [address] documented as of this encounter [...] documented as of this encounter Care Teams Social Media Content Manager Relationship Specialty [place] [address] PCP - General 03/14/25 Ruma Hernández APRN [address] [facility] [address] [place] [address] Referring Physician Gastroenterology 07/30/23 documented as of this encounter
--- OUTSIDE RECORDS SUMMARY | 2025-09-24 13:00 | XMS_ITS | Encounter Summary ---
Author Organization [facility] Address [address] [place] [id number] Care Team Providers Care Speech Professor Name Role Phone System, Provider Not In [...] release of HIV test results or diagnoses. [id number] Reason for Visit * Reason Comments Liver Transplant Evaluation Encounter Details Date Type Department Care Team (Late st Contact Info) Description 09/24/2025 1:00 PM EST Office Visit [facility] Liver Transplant at [address] [phone] Nigel Reaves MD [address] [place] [phone] Esophageal varices without bleeding, unspecified esophageal [...] of Assessment Author No 09/24/2025 12:32 PM EST Andrae Masters MA * Body Composition Question Answer Date of Assessment Author Weight Change (lbs) 0 09/24/2025 12:32 PM Adama Henriquez MA * NARxCHECK Sedatives Score Answer Date of Assessment Author 010 09/24/2025 12:27 PM EST Interfac e, Doc Flowsheet In * NARxCHECK Stimulants Score Answer Date of Assessment Author 000 09/24/2025 12:27 PM EST Interfac e, Doc Flowsheet In * NARxCHECK Narcotics Score Answer Date of Assessment Author 030 09/24/2025 12:27 PM EST Interfac e, Doc Flowsheet In * Height Percent Change Answer Date of Assessment Author 0 09/24/2025 12:32 PM Andrae Rodríguez MA * HIDDEN-Infusion Dashboard Answer Date of Assessment Author 125 09/24/2025 12:32 PM Andrae Rodríguez MA * ROOMING FALL RISK SCORING MECHANISM Answer Date of Assessment Author 0 09/24/2025 12:29 PM Andrae Rodríguez MA documented as of this encounter Patient [...] center. He also has dual listing at [facility]. Liver disease diagnosed in 2022 based [...] 2:11 PM EST) Culture Result No Growth [facility] Midstream Urine URINE SPECIMEN / Unknown 09/24/2025 2:11 PM EST 09/24/2025 3:25 PM EST us Nigel Reaves MD MICROBIOLOGY - GENERAL ORDERABLE S Final Result [facility] [address] * (ABNORMAL) Urinalysis w/Rfl to Microscopic (09/24/2025 2:11 PM EST) Color, UA Yellow Yellow,Straw 09/24/2025 3:25 PM EST [facility] Clarity, UA Cloudy(A) Clear 09/24/2025 3:25 PM EST [facility] Specific [place], UA 1.019 1.005 - 1.035 09/24/2025 3:25 PM EST [facility] pH, UA 6.0 5.0 - 8.0 09/24/2025 3:25 PM EST [facility] Protein, UA 30(A) Negative mg/dL 09/24/2025 3:25 PM EST [facility] Glucose, UA Negative Negative mg/dL 09/24/2025 3:25 PM EST [facility] Ketones, UA Negative Negative mg/dL 09/24/2025 3:25 PM EST [facility] Bilirubin, UA Negative Negative 09/24/2025 3:25 PM EST [facility] Blood, UA Large(A) Negative 09/24/2025 3:25 PM EST [facility] Nitrite, UA Negative Negative 09/24/2025 3:25 PM EST [facility] Urobilinogen, UA <2.0 0.2 - 1.9 mg/dL 09/24/2025 3:25 PM EST [facility] Leukocyte Esterase, UA Large(A) Negative 09/24/2025 3:25 PM EST [facility] RBC, UA 61(H) 0 - 3 /HPF 09/24/2025 3:25 PM EST [facility] WBC, UA >100(H) 0 - 5 /HPF 09/24/2025 3:25 PM EST [facility] Squam Epithel, UA 1 0 - 5 /HPF 09/24/2025 3:25 PM EST [facility] Bacteria, UA Rare(A) None Seen /HPF 09/24/2025 3:25 PM EST [facility] Mucus, UA Present(A) None Seen /HPF 09/24/2025 3:25 PM EST [facility] Urine 09/24/2025 2:11 PM EST 09/24/2025 2:51 PM EST Nigel Reaves MD URINE ORDERABLES Final Result [facility] [address] documented in this encounter Visit Diagnoses Diagnosis [...] as of this encounter Care Teams Speech Professor Relationship Specialty Start Date End Date System, Provider Not In PCP - General 09/10/25 10/24/25 documented as of this encounter
--- OUTSIDE RECORDS SUMMARY | 2025-10-17 08:52 | XMS_ITS | Encounter Summary ---
Author Organization [facility] Address [address] [place] [id number] Care Team Providers Care Organic Chemistry Teacher Name Role Phone System, Provider Not [...] release of HIV test results or diagnoses. [id number] Health Reason for Visit * Auth/Cert (Routine) Specialty Diagnoses / Procedures Referred By Gianna t Referred To Contact Diagnoses TRANSPLANT LIVER Procedures TRANSPLANT LIVER [facility] PERIOP [address] [place] [address] Phone: tel: Referral ID Status Reason Start Date Expiration Date Visits Re quested Visits Authorized [id number] 1 1 Encounter Details Date Type Department Care Team (Latest Contact Info) Description 10/17/2025 8:52 AM EST - 10/22/2025 4:06 PM EST Hospital Encounter [facility] SICU [address] [place] [address] Vani Winkler MD [facility] Liver/[place] [id number] S/P liver transplant (CMS-HCC) (Primary Dx); End [...] in a nursing home (including now)? No 10/17/2025 Utilities Answer Date [...] documented in this encounter Functional Status * Pre-Op Check List Question Answer Date of Assessment Author Beta Blockers Given? N/A 10/17/2025 9:37 AM E Yvette Hdz RN Scrubbing with Antibacterial Soap No 10/17/2025 9:37 AM Yvette Whitehead RN H&P Complete? Yes 10/17/2025 9:37 AM EST SchYvette stephens RN Family Waiting? Yes 10/17/2025 9:37 AM EST Sc hrYvette yao RN Pre-Op Antibiotics Given? N/A 10/17/2025 9:37 AM Yvette Whitehead RN * Patient Prep Verification Question Answer Date of Assessment Author Did patient attend joint class? N/A 10/17/2025 9:37 AM Yvette Whitehead RN * Body Composition Question Answer Date of Assessment Author Weight Change (lbs) 0 10/17/2025 9:39 AM Suzanne Sepulveda R * Height Percent Change Answer Date of Assessment Author 0 10/17/2025 9:39 AM Promise Paulino R * HIDDEN-Infusion Dashboard Answer Date of Assessment Author 123 10/22/2025 2:00 PM EST Charbel Ji RN * Peripheral Vascular Question Answer Date of [...] 10/17/2025 11:44 PM Kira Chandler R N * PT 6 Clicks Question Answer Date of Assessment Author -[facility] Score - Performed/Achieved 8 Walks 250 feet or more 10/22/2025 12:09 PM Jen Radford PT * Mobility: AM-PAC/-HLM Question Answer Date of Assessment Author AM-PAC Mobility Score 17 10/22/2025 12:00 PM Charbel Cheatham RN Translation to [facility] 5 10/22/2025 12:00 PM Charbel Cheatham RN -[facility] Score - Performed/Achieved Goal (Y/N) No 10/22/2025 12:00 PM Charbel Cheatham RN Early Mobility/Exercise Safety Screen (Med/Surg) Proceed with mobilization - No exclusion criteria met 10/22/2025 12:00 PM Charbel Cheatham RN Early Mobility/Exercise Safety Screen (ICU) Proceed with mobilization - No exclusion criteria met 10/22/2025 12:00 PM Charbel Cheatham RN Goal -M 5 Standing (1 or mor e minutes) 10/22/2025 12:00 PM Charbel Cheatham RN * Mobility Question Answer Date of Assessment Author Anti-Embolism Devices Bilateral;Sequenti al compression devices, below knee 10/22/2025 12:00 PM Charbel Cheatham RN Anti-Embolism Intervention Off 10/22/2025 12:00 PM Charbel Cheatham RN documented as of this encounter Discharge Summaries * LAISHA Hernandez - 10/22/2025 1:32 PM EST [facility] Inpatient Discharge Summary Patient: David Serrano Age: 65 y.o. 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 Oil Treater Allergies Allergies[1] Discharge Medications Medication List TAKE [...] scale: Blood glucose 150-199 mg/dL =1units, Blood bqepibx651-798 mg/dL =2 units, Blood glucose 250-299 mg/dL =3 units, Blood glucose 300-349 mg/dL =4 units,Blood glucose greater than 349 mg/dL = 5 units Quantity: 15 mL Refills: 2 lancets [facility] Use to test blood sugar four times [...] Your Medications These medications were sent to [facility] [address] [place] [id number] Hours: Wednesday - Wednesday: 8:00AM - 6:00PM acetaminophen 325 MG tablet acyclovir 400 MG tablet alcohol swabs Padm blood-glucose meter [facility] calcium-vitamin D 500 mg-5 mcg (200 unit) per tablet furosemide 40 MG tablet glucose blood test strip insulin lispro 100 unit/mL Inpn lancets Mis methocarbamoL 500 MG tablet mycophenolate 250 mg capsule NIFEdipine 30 MG (OSM) 24 hr tablet oxyCODONE 5 MG immediate release tablet pantoprazole 40 MG tablet pen needle, diabetic 32 gauge x 5/32 Ndle phosphorus 250 mg tablet polyethylene glycol [...] prn. Discharged on a bowel regimenas needed. [facility] - PT/OT evaluated patient and recommended home PT/OT. ENDO - A1C is 4.0. Pt was not on diabetic regimen prior to arrival. Patient developed steroid-induced hyperglycemia 2/2 steroid regimen. Discharged home on the following regimen: LDSSI. Patient met w/ family educator prior to discharge. HEME - Post-operatively, monitored [...] home care (to start 10/29 due to [facility] staffing, outpatient labs this week). Labs to be drawn qMon/Thurs. Patient and family received post-transplant education from destination coordinator as well as medication teaching from [...] Gelatein Plus- clear thickened, gelatin high protein ([facility] and [facility] only) As listed above 4. Discharge specific orders: None required 5. Core measures followed: (if this is a core measure patient) Discharge Weight: 220 lb (99.8 kg) Disposition Home with assistance Home with supervision Home with Home Health Follow-Up Appointments Future Appointments Date Time Provider Department Center 10/30/2025 9:00 AM LTRA SURGERY, [facility] [address] [place] [address] Signed: LAISHA HERNANDEZ 10/22/2025, 1:32 PM [1] Allergies Allergen Reactions Lisinopril Other (See Comments) Cosigned by Vani Winkler MD at 10/30/2025 12:49 PM EST Associated attestation - aVni Winkler MD - 10/30/2025 12:49 PM EST I have personally seen and examined this patient on 10/22/25. I have discussed the patient's care with the ELÍAS/resident team. I agree with the ELÍAS/resident???s findings and plan as documented in the ELÍAS/resident???s note. Immunosuppression reviewed and discussed with multidisciplinary team. Vani Winkler MD PhD Transplant Surgery * Citlaly Zimmerman RN - 10/22/2025 12:26 PM EST [facility] Care Management Discharge Summary Patient name: David Serrano Patient : 1960 Age: 65 y.o. Gender: male Patient emergency contact: Extended Emergency Contact Information Primary Emergency Contact: Stacy Serrano Address: [address] [place] [address] of [facility] Mobile Relation: Spouse Attending provider: Vani Winkler MD Primary care physician: PROVIDER NOT IN SYSTEM The MD has indicated that the patient is ready for discharge. David Serrano was referred and accepted at [facility] ([phone]) for PT/OT and SN (lab draws) . [...] Services at Home post discharge: [facility] Name/Phone # post discharge: [facility] ([phone]) Home Health Services Types at Discharge: PT/OT/GREETING CARD MAKER, [facility] (half-way for lab draws.) Citlaly Zimmerman RN/SAJAN [phone] documented in this encounter Discharge Instructions * [...] up appointments. Diet: Regular diet Drain/Dressing/Wound Care: Radha will be removed in clinic approximately 3-4 [...] kept under 2 gm/day. Please discuss withyour training and development coordinator if you have any question about appropriate dose to take. Other Instructions: Call post-liver transplant clinic with questions [phone] or call [facility] at [phone] and ask for the liver destination coordinator refrigeration specialist if you experience any of the following: [...] Date and time as instructed by your destination coordinator in liver transplant clinic in [facility], 3rd floor or Video Visit. PLEASE GET [...] 2 10/22/2025 3:31 PM EST 10/22/2025 lancets Mis Use to test blood sugar four [...] Immunosuppression schedule as per Education Note by destination coordinator earlier this admission. Reviewed discharge medications [...] in clinic? (If significant deficits, communicate with destination coordinator): Standard continual education Future medications to [...] Cori Womack PharmD Solid Organ Transplant Clinical Fretted Instrument Repairer Contact via [employer] * Cori Womack PharmD - 10/22/2025 4:06 [...] Cori Womack PharmD Solid Organ Transplant Clinical Fretted Instrument Repairer Contact via [employer] * Jen Ahmadidy, PT - 10/22/2025 12:10 PM EST Physical Therapy Treatment Name: David Serrano : 1960 Attending Physician: Vani Winkler MD Admission Diagnosis: TRANSPLANT LIVER Date: 10/22/2025 Room: [place] [address] [address] Reviewed Pertinent hospital course: Yes Hospital Course [...] Long-term goal to be met by: 11/02/25 [place] Goal : =STG Patient/Family Education Educated patient [...] Surgery Progress Note Name: David Serrano CSN: [id number] Date: 10/22/2025 7:07 AM OR Date: 10/17/2025 [...] LFTs - pred taper, cellcept - tac / - Advance diet as tolerated, Regular diet Acute hypoxic respiratory failure-improving - extubated 10/18 - sating well on RA PPX: SQH, SCD, PPI Dispo: Floor v discharge LETICIA LOMELI MD Transplant Surgery [facility] Surgery Resident Cosigned by Vani Winkler [...] Surgery Progress Note Name: David Serrano CSN: [id number] Date: 10/21/2025 6:26 AM OR Date: 10/17/2025 [...] iniguez in place Labs: Recent Labs 10/19/25 0810/19/25230210/20/25 0531 WBC 9.8 7.0 6.1 HGB 9.6* 8.9* 8.5* HCT 26.8* 25.8* 24.6* PLT 22* 20* 17* Recent Labs 10/19/25 0810/19/25230210/20/25 0531 NA 145 144 142 K 3.6 3.6 3.8 CL 113* 110 111* CO2 BUN 38* 46* 47* CREATININE 1.16 1.24 1.15 GLUCOSE 129* 184* 198* CALCIUM 7.2* 7.1* 6.8* MG 2.0 2.1 2.1 PHOS 4.0 4.9* 4.8* Recent Labs 10/19/25 17210/19/25 23010/20/25 0530 10/20/25 0924 10/20/25 1424 10/20/25 1717 POCGMD 166* 185* 208* 227* 205* 195* Recent Labs 10/19/25 0829 10/19/25 23010/20/25 0531 AST 450* 223* 161* ALT 725* [...] Dispo: Floor KEITH JUSTIN MD Transplant Surgery [facility] Surgery Resident Cosigned by Vani Winkler [...] Surgery Progress Note Name: David Serrano CSN: [id number] Date: 10/20/2025 6:42 AM OR Date: 10/17/2025 Subjective 3 Days Post-Op S/p OLT EBL 11L Started TAC yesterday NG removed yesterday, sips of clears Cr elevated 7.1 however stable Objective Vitals: Temp: [97.8 ??F (36.6 ??C)-98.2 ??F (36.8 ??C)] 97.8 ??F (36.6 ??C) Heart Rate: [61-77] 72 Resp: [9-19] 14 BP: (137-163)/(84-101) 162/84 Arterial Line BP: (138-211)/(67-125) 162/79 I/O: Date 10/19/25699 - 10/20/25 0659 10/20/25 07 - 10/21/25 0659 Shift 8816-5611 4927-8328 8187-1366 24 Hour Total 3498-2952 9392-4780 1959-4234 24 Hour Total INTAKE P.O. 100 100 P.O. 100 100 I.V.(mL/kg) 552.9(5.5) 552.9(5.5) Volume (mL) Insulin 7.4 7.4 Volume (mL) (electrolyte-R (pH 7.4) (NORMOSOL-R pH 7.4) IV solution) 545.5 545.5 NG/GT 30 30 Flushes (mL) ([REMOVED] NG/OG Tube Nasogastric Right nostril) 30 30 IV Piggyback 150.3 150.3 Volume (mL) (AMPicillin 1 g in sodium chloride 0.9% 100 mL IVPB (Xeew8Nat)) 100 100 Volume (mL) (mycophenolate (CELLCEPT) 500 [...] 24.6* PLT 22* 20* 17* Recent Labs 10/18/25 2220 10/19/25 0829 10/19/25 2303 NA 146 145 144 K 3.1* 3.6 3.6 CL 113* 113* 110 CO2 BUN 32* 38* 46* CREATININE 1.09 1.16 1.24 GLUCOSE 129* 129* 184* CALCIUM 7.4* 7.2* 7.1* MG 1.8 2.0 2.1 PHOS 4.0 4.0 4.9* Recent Labs 10/17/25 1700 10/17/25 1742 10/17/25 1823 10/17/25 1926 10/17/25 2022 10/17/25 2125 10/17/25 2247 10/19/25 0828 10/19/25 0951 10/19/25 1226 10/19/25 1724 10/19/25 2302 10/20/25 0530 POCGLU 96 77 170* 207* 218* 227* -- -- -- -- -- -- -- POCGMD -- -- -- -- -- -- < > 122* 110* 156* 166* 185* 208* < > = values in this interval not displayed. Recent Labs 10/18/25 22210/19/25 0829 10/19/25 2303 AST 717* 450* 223* ALT 792* 725* [...] BID Continuous Infusions: electrolyte 75 mL/hr (10/19/25 5314) PRN Meds: dextrose 10% in water OR [...] later today LETICIA LOMELI MD Transplant Surgery [facility] Surgery Resident Cosigned by Vani Winkler [...] MD PhD Transplant Surgery * Cori Womack, PharmD - 10/19/2025 3:13 PM EST Caprini Risk [...] the Caprini Risk Score of 10 and [facility] transplant protocol, I recommend discharging on heparin 5,000 units subcutaneously q8h (facility) or Eliquis 2.5 mg PO BID (home) for 30 days total. Endof chemoprophylaxis: 11/17/25. Cori Womack PharmD Solid Organ Transplant Clinical Fretted Instrument Repairer Contact via [employer] * Leticia Lomeli MD - 10/19/2025 12:10 PM EST Transplant Surgery Progress Note Name: David Serrano CSN: [id number] Date: 10/19/2025 12:10 PM OR Date: 10/17/2025 [...] Date 10/18/25 07 - 10/19/25 0659 10/19/25 07 - 10/20/25 0659 Shift 8189-0232 6800-1052 9488-3499 24 Hour Total 9588-3833 0444-6057 2278-4562 24 Hour Total INTAKE P.O. 50 50 [...] in sodium chloride 0.9% 100 mL IVPB (Dclh7Aew)) 100 200 100 400 Volume (mL) (mycophenolate [...] Output (mL) (IUC (Iniguez) 16 Fr.) 570 791 227 1512 260 260 Emesis/NG output 200 200 Drainage [...] : iniguez in place Labs: Recent Labs 10/18/25 1747 10/18/25 2220 10/19/25 0829 WBC 11.8* 11.4* 9.8 HGB 10.0* 9.5* 9.6* HCT 28.3* 26.9* 26.8* PLT 22* 22* 22* Recent Labs 10/18/25174610/18/25221910/19/25 0829 NA 144 146 145 K 3.4* 3.1* 3.6 CL 112* 113* 113* CO2 BUN 29* 32* 38* CREATININE 1.09 1.09 1.16 GLUCOSE 136* 129* 129* CALCIUM 7.5* 7.4* 7.2* MG 1.9 1.8 2.0 PHOS 3.8 4.0 4.0 Recent Labs 10/17/25 17010/17/25 17410/17/25 1823 10/17/25 1926 10/17/25 20210/17/25 2125 10/17/25 2247 10/19/25 0406 10/19/25 0610 10/19/25 0628 10/19/25 0707 10/19/25 0828 10/19/25 0951 POCGLU 96 77 170* 207* 218* 227* -- -- -- -- -- -- -- POCGMD -- -- -- -- -- -- < > 115* 108* 109* 136* 122* 110* < > = values in this interval not displayed. Recent Labs 10/18/25174610/18/25221910/19/25 0829 AST 965* 717* 450* ALT 871* 792* 725* BILITOT 1.1 1.0 1.0 BILIDIRECT 0.56* 0.51* 0.44* ALKPHOS 61 62 65 ALBUMIN 2.2* 2.2* 2.1* 2.1* 2.2* 2.2* Recent Labs 10/18/25174610/18/25221910/19/25 0829 INR 1.8* 1.8* 1.5* PROTIME 21.8* [...] later today LETICIA LOMELI MD Transplant Surgery [facility] Surgery Resident Cosigned by Vani Winkler [...] Winkler MD PhD Transplant Surgery * Lary Ding, OT - 10/19/2025 11:03 AM EST Occupational Therapy Initial Assessment Name: David Serrano : 1960 Attending Physician: Vani Winkler MD Admission Diagnosis: TRANSPLANT LIVER Date: 10/19/2025 [facility] [address] Reviewed Pertinent hospital course: Yes Hospital Course [...] Hobbies-yes (Comment) Leisure Activities: fishing, play with [employer] Pain Pain Score: 0 - No Pain [...] will complete lower body dressing: Moderate assistance [place] Goal : Pt will tolerate a bathing assessment roasterman goal to be met in: 2 weeks [...] TRANSPLANT LIVER; Surgeon: Vani Winkler MD; Location: [facility]; Service: Transplant; Laterality: N/A; [1] Patient [...] Admission Diagnosis: TRANSPLANT LIVER Date: 10/19/2025 Room: [place] [address]/[place] [address] Reviewed Pertinent hospital course: Yes Hospital Course [...] Long-term goal to be met by: 11/02/25 Jail Goal : =STG Patient/Family Education Educated patient [...] TRANSPLANT LIVER; Surgeon: Vani Winkler MD; Location: [facility]; Service: Transplant; Laterality: N/A; [1] Patient Active Problem List Diagnosis Alcoholic cirrhosis (CMS-HCC) Ascites Hepatic encephalopathy (CMS-HCC) Esophageal varices (CMS-HCC) Pre-transplant evaluation for chronic liver disease Encounter for pre-transplant evaluation for liver transplant * Lteicia Lomeli MD - 10/18/2025 12:58 PM EST Transplant Surgery Progress Note Name: David Serrano CSN: [id number] Date: 10/18/2025 12:58 PM OR Date: 10/17/2025 [...] [39 %-100 %] 40 % I/O: Date 10/17/25 07 - 10/18/25 0659 10/18/25 07 - 10/19/25 0659 Shift 0672-5465 1472-0960 1207-3316 24 Hour Total 1828-6439 6157-8739 5685-9742 24 Hour Total INTAKE I.V.(mL/kg) 8000(80.2) 394.1(3.9) [...] 30 60 30 30 IV Piggyback 120 875 555 4747 62.6 62.6 Volume (mL) (methylPREDNISolone sodium succinate (SOLU-medrol) 500 mg in sodium chloride 0.9 % 100 mL IVPB) 100 100 Volume (mL) (AMPicillin 2 g in sodium chloride 0.9% 100 mL IVPB (Zgnu9Sxv)) 100 200 300 Volume (mL) (albumin human bottle 5%) 500 500 Volume (mL) (albumin human bottle 25%) 50 50 Volume (mL) (AMPicillin 1 g in sodium chloride 0.9% 100 mL IVPB (Jwph4Hhr)) 97.4 97.4 Volume (mL) (mycophenolate (CELLCEPT) 500 [...] IV Push) 20 20 Shift Total(mL/kg) 120(1.2) 55439(138.6) 1105.1(11.1) 40848.1(150.9) 143.4(1.4) 143.4(1.4) OUTPUT Urine(mL/kg/hr) 1850(2.3) 1000(1.3) 2850(1.2) [...] 2 Abdomen Inferior;Lateral;Left) 100 300 400 Blood 78374 54044 Est Blood Loss 51268 11749 Shift Total(mL/kg) 82202(130.5) 1550(15.5) 37556(146.1) 355(3.6) 355(3.6) Weight (kg) 99.8 99.8 99.8 [...] : iniguez in place Labs: Recent Labs 10/17/25224910/18/25 0502 10/18/25 1121 WBC 5.8 7.0 10.9* HGB 9.5* 9.6* 10.2* HCT 27.5* 27.6* 29.0* PLT 52* 36* 29* Recent Labs 10/17/25224910/18/25 0502 10/18/25 1121 NA 145 146 146 [...] in this interval not displayed. Recent Labs 10/17/25224910/18/25 0502 10/18/25 1121 AST 3,332* 2,612* 1,689* ALT 1141* 1072* 1034* BILITOT 4.5* 1.5 1.3 BILIDIRECT 3.22* 0.77* 0.74* ALKPHOS 63 50 60 ALBUMIN 2.2* 2.2* 2.2* 2.2* 2.3* 2.3* Recent Labs 10/17/25 2250 10/18/25 0502 10/18/25 1121 INR 2.1* 2.2* 2.0* PROTIME 25.2* 26.0* 23.6* Imaging: US Abdomen Limited Result Date: 10/18/2025 EXAM: US ABDOMEN LIMITED EXAM: US DUPLEX [id number] COMPLETE INDICATION: Post-op liver transplant Day 1 [...] at 10/18/2025 9:53 AM EST US Duplex Gfs-Llg-Zzioxgp Comp Result Date: 10/18/2025 EXAM: US ABDOMEN LIMITED EXAM: US DUPLEX [id number] COMPLETE INDICATION: Post-op liver transplant Day 1 [...] below level of diaphragms and outside the nsfrs-do-gcga. Right internal jugular approach pulmonary artery catheter projects over the right main pulmonary. Right upper quadrant surgical drain in stable position. Heart and Mediastinum: Unchanged. Lungs and Pleura: Persistent left basilar pleural-parenchymal opacities. Right lung is grossly clear. No evidence for pneumothorax. Bones and Soft tissues: Unchanged. IMPRESSION: No significant interval change. Approved by Urban Schneider DO on 10/18/2025 6:40 AM NADREW have personally reviewed the images and I [...] Dispo: SICU LETICIA LOMELI MD Transplant Surgery [facility] Surgery Resident Cosigned by Vani Winkler [...] Cori Womack PharmD Solid Organ Transplant Clinical Fretted Instrument Repairer Contact via [employer] Secure Chat * Karen Washington, BK - 10/18/2025 5:32 AM EST SBT started at 0435 completed at 0520 Patient on +5 and 40% RR: 7-12 Vt: 679-940 RSBI: 10-12 AB.34/48/84/25 Patient placed on Delta 5 post SBT documented in this encounter H&P Notes * Aspen Parr MD - 10/17/2025 10:27 AM EST Transplant Surgery History and Physical Patient: David Serrano CSN: [id number] History CC: ESLD HPI: David Serrano is [...] Resource Strain: Low Risk (06/15/2025) Received from [facility] Overall Financial Resource Strain (CARDIA) How hard is it for you to pay for the very basics like food, housing, medical care, and heating?: Not hard at all Food Insecurity: No Food Insecurity (06/15/2025) Received from [facility] Hunger Vital Sign Within the past 12 months, you worried that your food would run out before you got the money to buymore.: Never true Within the past 12 months, the food you bought just didn't last and you didn't have money to get more.: Never true Transportation Needs: No Transportation Needs (06/15/2025) Received from [facility] PRAPARE - Transportation In the past 12 months, has lack of transportation kept you from medical appointments or from getting medications?: No In the past 12 months, has lack of transportation kept you from meetings, work, or from getting things needed for daily living?: No Physical Activity: Inactive (06/15/2025) Received from [facility] Exercise Vital Sign On average, how many days per week do you engage in moderate to strenuous exercise (like a brisk walk)?: 0 days On average, how many minutes do you engage in exercise at this level?: 0 min Stress: No Stress Concern Present (06/15/2025) Received from [facility] [employer] [place] of Occupational Health - Occupational Stress Questionnaire Do you feel stress - tense, restless, nervous, or anxious, or unable to sleep at night because yourmind is troubled all the time - these days?: Only a little Social Connections: Socially Integrated (06/15/2025) Received from [facility] Social Connection and Isolation Panel In a typical week, how many times do you talk on the phone with family, friends, or neighbors?: More than three times a week How often do you get together with friends or relatives?: More than three times a week How often do you attend anglican or anabaptism services?: More than 4 times per year Do you belong to any clubs or organizations such as anglican groups, unions, fraternal [...] Housing Stability: Low Risk (06/15/2025) Received from [facility] Housing Stability Vital Sign In the last 12 months, was there a time when you were not able to pay the mortgage or rent on time?: No In the past 12 months, how many times have you moved where you were living?: 0 At any time in the past 12 months, were you homeless or living in a nursing home (including now)?: No FH: No family history [...] to SICU post-op. ASPEN PARR MD [facility] Surgery Liver Transplant Pager: [phone] 10:28 AM 10/17/2025 Cosigned by Vani [...] Name: David Serrano Date: 1960 Billing #: [id number] Date of Procedure: 10/17/2025 Diagnosis: Chronic Hepatic [...] branch patch. Ligation of left renal vein. Nvqd-fn-fwfb anastomosis performed without stent. Portal Flow Modulation [...] donor was ABO O and UNOS ID [id number], [place] [id number]. This was a 56 yearold brain donor [...] of available help, Dr. Nugent served as research assistant surgeon. Procedure: Back bench preparation of [...] After completion of the outflow anastomosis, a Azerbaijani clamp was placed across the donor suprahepatic [...] no further bleeding, we then performed a ncrs-wd-rpej anastomosis. There was no stent placed. This [...] Name: David Serrano Date: 1960 Billing #: [id number] Date of Procedure: 10/17/2025 Diagnosis: Chronic Hepatic Failure without coma Procedure: 1. Back Bench Preparation Donor Liver Attending surgeons: Felice Nugent III, MD Web Offset Press Feeder Surgeon(s): Morena Haley MD Indications for Procedure: This is a 65 y.o.-year-old male who has alcohol and A1AT liver disease and chronic liver failure complicated by ascites and HE with a MELD score of 20. A donor organ became available. This donor was ABO O and UNOS ID [id number], [place] [id number]. This was a 56 yearold brain donor [...] MD Giulia Bencini, MD Anesthesia: General Staff: Aeronautical Project Engineer: Mita Hernandez RN; Aspen Coleman RN Relief Aeronautical Project Engineer: Claritza Mckinnon RN; Jonatan De La O RN; Clair Sanders RN Scrub Person: Samson Mcbride RN Fellow: Chelsie Haley MD Float: Nadia Woodruff RN; Jyotsna Singleton RN; Farzana Hamilton; Lizz Cota RN Resident: Aspen Prar MD Estimated Blood Loss: 11 L Specimens: Samish liver and gallbladder Left liver core needle biopsy Right liver core needle biopsy Peritoneal fluid for culture Drains: Drain 1 Abdomen Inferior;Lateral;Right (Active) Number of days: 0 Drain 2 Abdomen Inferior;Lateral;Left (Active) Number of days: 0 IUC (Iniguez) 16 Fr. (Active) Number of days: 0 Transplant-Specific Information UNOS ID: [id number] Cross-clamp: 10/17/25 1250 Out of ice: 10/17/25 [...] 1:42 PM ESTAssociated Order(s): IP CONSULT TO MANUFACTURING APPLICATIONS ENGINEER [facility] Transplant Discharge Education Note Assessment: Received referral [...] 4 - Demonstrates understanding/competency Naomy Gomes RN, MSN,[facility] Diabetes Education Office [phone] Schedule: M-F 8:00am-4:30pm * Oskar Arango, FLEX - 10/22/2025 9:08 AM EST TXP - Follow-up [facility] Medical Nutrition Therapy Reason(s) for Completion: Physician/Nursing [...] Gelatein Plus- clear thickened, gelatin high protein ([facility] only) PO Meal Intake: Pt currently not taking any PO Appetite: [place] Estimated Nutrition Needs This Admission: No Feeding: Able to feed self Estimated Nutrition Needs (needs based on DBW of 70.4 kg) Kcals/day: 0387-6347 (25-30 kcal/kg) Protein g/day: 105-140 (1.5-2.0 g/kg) [...] 3.5 3.2* CL 111* 108 107 CO2 26 25 BUN 47* 39* 25 CREATININE [...] TRANSPLANT LIVER; Surgeon: Vani Winkler MD; Location: [facility]; Service: Transplant; Laterality: N/A; Scheduled Meds: acetaminophen [...] Dietitian - Solid Organ Transplant Contact via [employer] Chat [1] Allergies Allergen Reactions Lisinopril Other (See Comments) * Citlaly Zimmerman RN - 10/19/2025 1:50 PM EST HEALTH Care Management/Social Work Assessment Patient Information Patient Name: David Serrano Hospital Day: 2 Inpatient/Observation: Inpatient Admit Date: 10/17/2025 Admission Diagnosis: TRANSPLANT LIVER Attending provider: Vani Winkler MD PCP: PROVIDER NOT IN SYSTEM Home Pharmacy: [facility] - [place] - [address] [facility] [address] [place] [address] [facility] [address] [facility] [address] [facility] [address] [facility] [address] [facility] [address] [facility] [address] Pertinent Medications Anticoagulation therapy: Yes Anticoagulant (Name [...] Status: Number of children and their names: 1- Lan Serrano ([phone]) and Gloria Arredondoford ([phone]) Relative Search Completed: Yes Demographics Correct:: Yes [...] No Status & Connection to VA Services [place] Status & Connection to VA Services Are you a ?: No Support Systems Emergency contact: Extended Emergency Contact Information Primary Emergency Contact: Stacy Serrano Address: [address] [place] [address] of [facility] Mobile Relation: Spouse Support Systems Legal Status: HCPOA Name of Guardian/POA/ Payee and Phone Number: Stacy Serrano ([phone]) Primary Caregiver: Self, Spouse Caregiver name/phone number: Stacy Serrano ([phone]) Times of available support: Total 24/7 hands on (add comment) (Daughter and Friend willing to assist in pt post op care.) Marital Status: Number of children and their names: 1- Lan Serrano ([phone]) and Gloria Makenzie ([phone]) Relative Search Completed: Yes Demographics Correct:: Yes [...] living with spouse in a home in [place], [place]. Pt reports ~2 steps into residence and 0 inside residence. Pt reports having 2 children- Lan Serrano ([phone]) and Gloria Arredondoford ([phone]). Pt denies any concerns for safety or [...] HCPOA), Stacy Serrano. LNOK and HCPOA: Stacy Marley ([phone]) PCP: Myles Mosley Transportation: family Advance Directives (For Healthcare) Advance Directive: Patient has advance directive, copy in chart Type of Healthcare Directive: Durable power of trust and estates attorney for health care Healthcare Agent Appointed: Yes Healthcare Agent's Name: Stacy Serrano Healthcare Agent's Pre-existing DNR/DNI Order: No Patient Requests Assistance: No Discharge Plan Met with patient to initiate discussion regarding discharge planning. Introduced self and role of case management/social work and provided contact information. 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 Elmo body weight: Elmo body weight: 63.8 kg (140 lb 10.5 [...] 0700 10/18/25 0701 - 10/18/25 1900 10/18/25 190 - 10/19/25 0651 Drain 1 Abdomen Inferior;Lateral;Right [...] kg) Labs: Recent Labs 10/18/25 1121 10/18/25 1747 10/18/25 2220 NA 146 144 146 K 3.9 [...] 10/17/25 2250 10/18/25 0502 10/18/25 1121 10/18/25 1747 10/18/25 2220 NA 145 146 146 144 146 [...] 10/17/25 2250 10/17/25 2247 10/17/25 2125 10/17/25 20210/17/25 1926 10/17/25 1823 10/17/25 1742 10/17/25 1700 [...] in sodium chloride 0.9% 100 mL IVPB (Oylx4Lmy) 1 g Every 6 hours 10/17/2025 10/19/2025 Admin Instructions: Dosage may need to be adjusted for renal dysfunction. Full dose is 1g IV q6h Use Qtzy2Whf Adapter - Mix Thoroughly Before Administration Notes to Pharmacy: On order make up clerk estimated creatinine clearance is 101.9 mL/min [...] Best Verbal Response: 5,Best Motor Response: 6 [place] Coma Scale Score: 15 No data found. [...] iniguez PT/OT: pending. PT Recs: OT Recs: GREETING CARD MAKER Recs: Dispo: Remain in SICU EVELYN GALINDO [...] Pre-op MELD 20. Intra-operative course notable for [id number] ascites. EBL 11L, received 03/19/01/15, 2.4L cell-saver, 8.5L crystalloid. Needed 40 lasix [...] SATURATION ARTERIAL 97 100 PF ratio: 210 Elmo body weight: Elmo body weight: 63.8 kg (140 lb 10.5 [...] (mL) 10/16/25 0701 - 10/16/25 1900 10/16/25 1901 - 10/17/25 0700 10/17/25 0701 - 10/17/25 [...] 10/18/2025 0700 Gross per 24 hour Intake 00729.44 ml Output 26328 ml Net 472.44 ml IVF: acetylcysteine (ACETADOTE) 200 mg/mL (20 %) 10 g in sodium chloride 0.45% (1/2 NS) 1,000 mL infusion, Last Rate: 10 g (10/18/25 0516) fentanyl (SUBLIMAZE) IV infusion, Last Rate: 75 mcg/hr (10/17/252257) insulin regular in 0.9 % sodium chloride, Last Rate: 9 Units/hr (10/18/25 0701) norepinephrine, Last Rate: Stopped (10/18/25 05) propofol, Last Rate: 7.5 mcg/kg/min (10/18/25 0719) vasopressin, Last Rate: 0.03 Units/min (10/18/25 0702) A/P: Fluids: Start normosol at 75/hr #Electrolyte derangements - Manual replacements - Q6 labs post op - K replaced RENAL Labs: Recent Labs 10/17/25 1018 10/17/25224910/18/25501 NA 141 145 146 BUN 13 17 22 CREATININE 0.81 0.79 0.93 Urine lytes: No results for input(s): NAUR in the last 72 hours. Invalid input(s): CRUR Baseline Cr: 0.9. Urine output: N/A mL/24 hours A/P: - Trend labs per protocol - No acute intervention SKIN/MUSCULOSKELETAL Exam: normal ROM, no rashes A/P: No active issues. HEMATOLOGIC Labs: Lab 10/18/25 05010/17/25224910/17/25212410/17/25202110/17/25192510/17/25183810/17/25 17010/17/25 16510/17/25 1559 10/17/25 1455 HEMATOCRIT 27.6* 27.5* -- [...] this interval not displayed. Lab 10/18/25 0502 10/17/25224910/17/25212310/17/25202010/17/251924 INR POC -- -- 2.3* 2.9* 5.9* INR 2.2* 2.1* -- -- -- Lab 10/17/25224910/17/25203010/17/25183810/17/25 1656 10/17/25 1455 FIBRINOGEN LEVEL 253 157* [...] 0106 10/17/25 2355 10/17/25 2250 10/17/25 2247 10/17/25 [...] in sodium chloride 0.9% 100 mL IVPB (Ilxo8Upg) 1 g Every 6 hours 10/17/2025 10/19/2025 Admin Instructions: Dosage may need to be adjusted for renal dysfunction. Full dose is 1g IV q6h Use Bnet3Qrh Adapter - Mix Thoroughly Before Administration Notes to Pharmacy: On order make up clerk estimated creatinine clearance is 101.9 mL/min (based on SCr of 0.81 mg/dL). Route: Intravenous Linked Group 1: Placed in And Linked Group AMPicillin 2 g in sodium chloride 0.9% 100 mL IVPB (Uxdh0Ums) (Completed) 2 g Once 10/17/2025 10/17/2025 Admin Instructions: Begin infusion 20-60 minutes prior to incision Use Fuut5Zrp Adapter - Mix Thoroughly Before Administration Notes to Pharmacy: On order make up clerk estimated creatinine clearance is 98.3 mL/min [...] 1 PT/OT: pending. PT Recs: OT Recs: GREETING CARD MAKER Recs: Dispo: Remain in SICU. DUARTE EL [...] Pre-op MELD 20. Intra-operative course notable for vfbipydcvp6F ascites. EBL 11L, received 03/19//, 2.4L cell-saver, [...] 10/18/2025 0758 Gross per 24 hour Intake 23820.34 ml Output 92057 ml Net 484.34 ml SKIN/MUSCULOSKELETAL: No acute [...] Care, and Acute Care Surgery * Oskar Shah Nba, RD - 10/18/2025 7:15 AM ESTAssociated Order(s): IP CONSULT TO NUTRITION SERVICES TXP - Initial [facility] Nutrition Therapy Reason(s) for Completion: Physician/Nursing [...] based on DBW of 70.4 kg) Kcals/day: 0531-7945 (25-30 kcal/kg) Protein g/day: 105-140 (1.5-2.0 g/kg) [...] mL net volume. Pertinent Labs: Recent Labs 10/17/25183810/17/25192510/17/25212410/17/25224910/18/25 0502 WBC 4.8 -- -- 5.8 7.0 HGB 10.3* < > 9.0* 9.5* 9.6* HCT 30.2* < > 26.0* 27.5* 27.6* PLT 47* -- -- 52* 36* < > = values in this interval not displayed. Recent Labs 10/17/25 10110/17/250 10/18/25 0502 NA 141 145 146 K 3.3* 3.7 3.4* CL 110 110 111* CO2 29 27 26 BUN 13 17 22 CREATININE 0.81 0.79 0.93 GLUCOSE 81 225* 193* CALCIUM 8.1* 8.2* 7.8* MG 1.7 1.8 2.0 PHOS 2.8 3.9 3.0 Recent Labs 10/17/25101710/17/250 10/18/25 0502 AST 39 3,332* 2,612* ALT 27 1141* 1072* BILITOT 4.9* 4.5* 1.5 BILIDIRECT 1.35* 3.22* 0.77* ALKPHOS 143* 63 50 ALBUMIN 2.3* 2.3* 2.2* 2.2* 2.2* 2.2* Recent Labs 10/17/25183810/17/25192410/17/25212310/17/25224910/18/25 0502 INR 7.5* < > 2.3* 2.1* [...] %) 10 g in sodium chloride 0.45% (11/16 NS) 1,000 mL infusion 10 g (10/18/25 [...] for nutrition ongoing pending clinical course Joey Cook, RD, LD Clinical Dietitian - Solid Organ Transplant Contact via [employer] Chat [1] Allergies Allergen Reactions Lisinopril Other [...] O2 SATURATION ARTERIAL 100 PF ratio: 270 Elmo body weight: Elmo body weight: 63.8 kg (140 lb 10.5 [...] (mL) 10/15/25 0701 - 10/15/25 1900 10/15/25 1901 - 10/16/25 0700 10/16/25 0701 - 10/16/25 1900 10/16/25 1901 - 10/17/25 0700 10/17/25 0701 - 10/17/25 [...] 10/17/2025 2300 Gross per 24 hour Intake 60344.34 ml Output 31577 ml Net 840.34 ml IVF: fentanyl (SUBLIMAZE) [...] A/P: No active issues. HEMATOLOGIC Labs: Lab 10/17/25 2250 10/17/25 2125 10/17/25 2022 10/17/25 [...] values in this interval not displayed. Lab 10/17/25 2250 10/17/25 1839 10/17/25 1656 10/17/25 1455 10/17/25 1018 INR 2.1* 7.5* 2.3* 2.3* 1.8* Lab 10/17/25 2250 10/17/25 20310/17/25 1839 10/17/25 1656 10/17/25 1455 FIBRINOGEN LEVEL 253 157* 159* 137* 85* A/P: #Acute blood loss anemia #Chronic anemia - q6 CBC - Transfuse for Hgb < 7 Coagulopathy - Teg based resuscitation - Will transfuse if concerns for ongoing bleeding - Spot check TEG as needed ENDOCRINE FSBS range: Lab 10/17/25 2247 10/17/25 2125 10/17/25 20210/17/25 1926 10/17/25 1823 10/17/25 1742 10/17/25 1700 [...] in sodium chloride 0.9% 100 mL IVPB (Bnws1Ete) 1 g Every 6 hours 10/17/2025 10/19/2025 Admin Instructions: Dosage may need to be adjusted for renal dysfunction. Full dose is 1g IV q6h Use Shxa1Wgo Adapter - Mix Thoroughly Before Administration Notes to Pharmacy: On order make up clerk estimated creatinine clearance is 101.9 mL/min (based on SCr of 0.81 mg/dL). Route: Intravenous Linked Group 1: Placed in And Linked Group AMPicillin 2 g in sodium chloride 0.9% 100 mL IVPB (Mpdw5Seu) (Completed) 2 g Once 10/17/2025 10/17/2025 Admin Instructions: Begin infusion 20-60 minutes prior to incision Use Zwtd8Ekb Adapter - Mix Thoroughly Before Administration Notes to Pharmacy: On order make up clerk estimated creatinine clearance is 98.3 mL/min [...] 1 PT/OT: pending. PT Recs: OT Recs: GREETING CARD MAKER Recs: Dispo: Remain in SICU. DUARTE EL [...] Patient will remain free of falls Goal: [place] Fall Precautions Outcome: Adequate for Discharge Problem: [...] intervention. Outcome: Adequate for Discharge Problem: Non-violent, bml-hzrz-cqjjvgjqsjk restraints Description: Less restrictive alternative interventions will [...] of medical procedures, or protection of medical records clerk access. Outcome: Adequate for Discharge Problem: Knowledge [...] 1960 Age: 65 y.o. Gender: male SSN: [id number] Address: [address] [place], [place] [address] Phone number: [phone] Patient emergency contact: Extended Emergency Contact Information Primary Emergency Contact: Stacy Serrano Address: [address] [place] [address] of [facility] Mobile Relation: Spouse Date of admission: 10/17/2025 Date of discharge: 10/22/2025 Attending provider: Lane Troy MD Primary care physician: PROVIDER NOT IN SYSTEM Code status: Full Code Allergies: Allergies[1] Insurance Information Insurance Information ANTHEM/BLUE ACCESS Phone: -- Subscriber: David Serrano Subscriber#: [id number] Group#: [id number] Precert#: -- Authorization#: [id number] Effective Date: -- TRANSPLANT GLOBAL/TRANSPLANT GLOBAL Phone: -- Subscriber: David Serrano Subscriber#: [id number] Group#: -- Precert#: -- Authorization#: [id number] Effective Date: -- Diagnoses Present on Admission [...] Gelatein Plus- clear thickened, gelatin high protein ([facility] only) Regular Diet Services Required Fpc: vital signs, med management, lab draws Physical [...] scale: Blood glucose 150-199 mg/dL =1units, Blood lqrpekz301-105 mg/dL =2 units, Blood glucose 250-299 mg/dL [...] Your Medications These medications were sent to [facility] [address] [place] [id number] Hours: Wednesday - Wednesday: 8:00AM - 6:00PM [...] Fax results to liver transplant clinic at [phone]. NURSE VISIT: Please check vitals and assess/monitor [...] effort and are for medical reasons or anabaptism services or infrequently or short duration when for other reasons) due to deconditioning it would be a taxing effort to receive outpatient services. My signature below is to certify that this patient is under my care and that I, or nurse practitioner, or a physician research assistant working with me, had a rpiy-cz-orrd encounter with this is patient on: 10/22/2025 Follow-up Appointments and Post Hospital Discharge Physician Name Future Appointments Date Time Provider Department Center 10/30/2025 9:00 AM [facility] SURGERY, [facility] LTRA [facility] [address] [facility] [address] Discharging Physician Signature and Credentials Discharging Physician: Electronically signed by LAISHA HERNANDEZ 10/22/2025, 1:32 PM Physician to follow up Information PCP: PROVIDER NOT IN SYSTEM PCP address: None PCP phone number: None PCP fax number: None Follow-up: [facility] and their phone / fax is: [phone] / [phone] Instructional Materials Director and Credentials Provider/Company Name and Contact Number: [facility] at Discharge [facility] at Home post discharge: [facility] Name/Phone # post discharge: [employer] ([phone]) Home Health Services Types at Discharge: PT/OT/GREETING CARD MAKER, Fpc (half-way for lab draws.) Instructional Materials Director Name and Telephone Number: Citlaly Bishop RN/CM [phone] [1] Allergies Allergen Reactions Lisinopril Other (See [...] to patients area and insurance. Kamlesh Sanchez Experience Planning Strategist [employer] Care Management Services [phone] * Plan of Care - Evelyn Galindo [...] Bush RN - 10/18/2025 3:55 PM EST [facility] Case Management/Social Work Department Progress Note [...] PCP: PROVIDER NOT IN SYSTEM Home Pharmacy: [facility] - [place] - [address] [place] [address] [facility] [address] [facility] [address] [facility] [address] [facility] [address] [facility] [address] [facility] [address] [facility] [id number] Medical Insurance Coverage: Payor: ANTHEM / Plan: [...] discharge planning needs. TAMIA BUSH RN Cell [phone] * Plan of Care - Angela Tamez [...] Patient will remain free of falls Goal: [place] Fall Precautions Outcome: Progressing Problem: Daily Care [...] pain management intervention. Outcome: Progressing Problem: Non-violent, osa-ujwh-nniaveqefwg restraints Description: Less restrictive alternative interventions will [...] of medical procedures, or protection of medical records clerk access. Outcome: Progressing Problem: Knowledge Deficit Goal: [...] Patient will remain free of falls Goal: [place] Fall Precautions Outcome: Progressing Problem: Daily Care [...] pain management intervention. Outcome: Progressing Problem: Non-violent, fhg-jdsg-duoijhvmwmn restraints Description: Less restrictive alternative interventions will [...] of medical procedures, or protection of medical records clerk access. Outcome: Progressing Patient in bilateral soft [...] Priority Date/Time Associated Diagnosis Comments US DUPLEX DNX-VYSBMI-[id number] COMPLETE STAT 10/22/2025 10:24 AM EST US [...] 8:29 AM EST TACROLIMUS LEVEL Timed 10/19/2025 8:2 9 AM EST PROTIME-INR Routine 10/19/2025 8:29 AM [...] Routine 10/18/2025 10:29 AM EST US DUPLEX UCC-IFODAM-JANNPAW COMPLETE STAT 10/18/2025 9:35 AM EST US [...] in this encounter Results * US Duplex Qhw-Qav-Fbsibkl Comp (10/22/2025 10:24 AM EST) Anatomical Region [...] EXAM: US ABDOMEN COMPLETE EXAM: US DUPLEX [id number] COMPLETE INDICATION: Post-op liver transplant DATE: 10/22/2025 [...] EXAM: US ABDOMEN COMPLETE EXAM: US DUPLEX [id number]-[id number]-[id number] COMPLETE INDICATION: Post-op liver transplant DATE: 10/22/2025 [...] 12:02 PM EST us Leticia Lomeli MD [facility] US ORDERABLES Final Resul t * US [...] EXAM: US ABDOMEN COMPLETE EXAM: US DUPLEX [id number] COMPLETE INDICATION: Post-op liver transplant DATE: 10/22/2025 [...] EXAM: US ABDOMEN COMPLETE EXAM: US DUPLEX [id number] COMPLETE INDICATION: Post-op liver transplant DATE: 10/22/2025 [...] Jaimes MD at 10/22/2025 12:02 PM EST Leticia Lomeli MD G US ORDERABLES Final Resul t * POC Glucose Monitoring Device (10/22/2025 10:23 AM EST) [facility] POC Glucose Monitoring Device 96 70 - 100 mg/dL 10/22/2025 10:24 AM EST [facility] Blood 10/22/2025 10:2 3 AM EST 10/22/2025 10:23 AM EST Vani Winkler MD POINT OF CARE TEST ORDERABLE S Final Result Performing Organization Address [facility]/ZIP Co de Phone Number [facility] [address] [place] [address] * Tacrolimus level (10/22/2025 9:48 AM EST) [facility] Tacrolimus (LC-MS) 4.0 3.0 - 15.0 ng/mL 10/22/2025 12:57 PM EST [facility] Comment:Performed via liquid chromatography tandem mass spectrometry. Detection limit: 1 ng/mL. Individual target concentrations may vary due to target organ and time after transplant. This test has been developed and its performance characteristics determined by [facility] which is certified under the [...] ORDERABLES Final Re sult Performing Organization Address City/[facility]/ZIP Co de Phone Number [facility] [address] [place] [address]. [address] * Phosphorus (10/22/2025 5:28 AM EST) Phosphorus 2.3 2.1 - 4.7 mg/dL 10/22/2025 6:20 AM EST [facility] Plasma 10/22/2025 5:28 AM EST 10/22/2025 5:42 AM EST Aspen Parr MD LAB BLOOD ORDERABLES Final Resul t [facility] [address] [facility]. [address] * Magnesium (10/22/2025 5:28 AM EST) Magnesium 1.7 1.5 - 2.5 mg/dL 10/22/2025 6:20 AM EST [facility] Plasma 10/22/2025 5:28 AM EST 10/22/2025 5:42 AM EST Aspen Parr MD LAB BLOOD ORDERABLES Final Resul t Performing Organization Address City/[facility] Co de Phone Number [facility] [address] * (ABNORMAL) CBC (10/22/2025 5:28 AM EST) WBC 6.6 3.8 - 10.8 10E3/uL 10/22/2025 5:48 AM EST [facility] RBC 2.84(L) 4.20 - 5.80 10E6/uL 10/22/2025 5:48 AM EST [facility] Hemoglobin 9.3(L) 13.2 - 17.1 g/dL 10/22/2025 5:48 AM EST [facility] Hematocrit 26.4(L) 38.5 - 50.0 % 10/22/2025 5:48 AM EST [facility] MCV 92.8 80.0 - 100.0 fL 10/22/2025 5:48 AM EST [facility] MCH 32.8 27.0 - 33.0 pg 10/22/2025 5:48 AM EST [facility] MCHC 35.4 32.0 - 36.0 g/dL 10/22/2025 5:48 AM EST [facility] RDW 16.0(H) 11.0 - 15.0 % 10/22/2025 5:48 AM EST [facility] Platelets 22(L) 140 - 400 10E3/uL 10/22/2025 5:48 AM EST [facility] Comment: CNV Specimen checked for clots. None detected. MPV 9.1 7.5 - 11.5 fL 10/22/2025 5:48 AM EST [facility] Whole Blood 10/22/2025 5:28 AM EST 10/22/2025 5:42 AM EST us Aspen Parr MD LAB BLOOD ORDERABLES Final Resul t [facility] [address] [place] [address], [facility] * (ABNORMAL) Hepatic Function Panel (10/22/2025 5:28 AM EST) Total Bilirubin 1.0 0.0 - 1.5 mg/dL 10/22/2025 6:20 AM EST [facility] Bilirubin, Direct 0.28 0.00 - 0.40 mg/dL 10/22/2025 6:20 AM EST [facility] AST 42(H) 13 - 39 U/L 10/22/2025 6:20 AM EST [facility] ALT 270(H) 7 - 52 U/L 10/22/2025 6:20 AM EST [facility] Alkaline Phosphatase 84 36 - 125 U/L 10/22/2025 6:20 AM EST [facility] Total Protein 4.3(L) 6.4 - 8.9 g/dL 10/22/2025 6:20 AM EST [facility] Albumin 2.1(L) 3.5 - 5.7 g/dL 10/22/2025 6:20 AM EST [facility] Bilirubin, Indirect 0.72 0.00 - 1.10 mg/dL 10/22/2025 6:20 AM EST [facility] Plasma 10/22/2025 5:28 AM EST 10/22/2025 5:42 AM EST us Aspen Parr MD LAB BLOOD ORDERABLES Final Resul t [facility] [address] [place] [address], [facility] * (ABNORMAL) Basic metabolic panel (10/22/2025 5:28 AM EST) Sodium 138 133 - 146 mmol/L 10/22/2025 6:20 AM EST [facility] Potassium 3.2(L) 3.5 - 5.3 mmol/L 10/22/2025 6:20 AM EST [facility] Chloride 107 98 - 110 mmol/L 10/22/2025 6:20 AM EST [facility] CO2 25 21 - 33 mmol/L 10/22/2025 6:20 AM EST [facility] Comment:High lactate dehydro genase concentrations in patient samples may cause falsely increased bicarbonate results. If markedly elevated LDH is observed or suspected, please assess results in conjunction with patient`s clinical presentation. In cases of discrepant results, consider evaluating CO2 in with a blood gas order. Anion Gap 6 3 - 16 mmol/L 10/22/2025 6:20 AM EST [facility] BUN 25 7 - 25 mg/dL 10/22/2025 6:20 AM EST [facility] Creatinine 0.81 0.60 - 1.30 mg/dL 10/22/2025 6:20 AM EST [facility] Glucose 100 70 - 100 mg/dL 10/22/2025 6:20 AM EST [facility] Calcium 6.8(L) 8.6 - 10.3 mg/dL 10/22/2025 6:20 AM EST [facility] Osmolality, Calculated 290 278 - 305 mOsm/kg 10/22/2025 6:20 AM EST [facility] EGFR >90 10/22/2025 6:20 AM EST [facility] Comment: As of 2022, [...] ORDERABLES Final Resul t Performing Organization Address [facility] Co de Phone Number [facility] [address] [place] [address]. [address] * (ABNORMAL) POC Glucose Monitoring Device (10/21/2025 4:31 PM EST) POC Glucose Monitoring Device 230(H) 70 - 100 mg/dL 10/21/2025 4:32 PM EST [facility] Blood 10/21/2025 4:31 PM EST 10/21/2025 4:32 PM EST Vani Winkler MD POINT OF CARE TEST ORDERABLE S Final Result Performing Organization Address [facility] Co de Phone Number [facility] [address] [place] [address]. [address] * (ABNORMAL) POC Glucose Monitoring Device (10/21/2025 12:27 PM EST) POC Glucose Monitoring Device 181(H) 70 - 100 mg/dL 10/21/2025 12:27 PM EST [facility] Blood 10/21/2025 12:2 7 PM EST 10/21/2025 12:27 PM EST Vani Winkler MD POINT OF CARE TEST ORDERABLE S Final Result Performing Organization Address [facility] Co de Phone Number [facility] [address] * Tacrolimus level (10/21/2025 8:30 AM EST) Pathologist [facility] Tacrolimus (LC-MS) 6.9 3.0 - 15.0 ng/mL 10/21/2025 3:07 PM EST [facility] Comment:Performed via liquid chromatography tandem mass spectrometry. Detection limit: 1 ng/mL. Individual target concentrations may vary due to target organ and time after transplant. This test has been developed and its performance characteristics determined by [facility] which is certified under the [...] ORDERABLES Final Re sult Performing Organization Address [facility] de Phone Number [facility] [address] [place] [address]. [address] * (ABNORMAL) POC Glucose Monitoring Device (10/21/2025 8:18 AM EST) [facility] POC Glucose Monitoring Device 112(H) 70 - 100 mg/dL 10/21/2025 8:28 AM EST [facility] Blood 10/21/2025 8:18 AM EST 10/21/2025 8:28 AM EST Vani Winkler MD POINT OF CARE TEST ORDERABLE S Final Result Performing Organization Address [facility] Co de Phone Number [facility] [address] [place] [address]. [address] * (ABNORMAL) Hepatic Function Panel (10/21/2025 6:35 AM EST) Pathologist [facility] Total Bilirubin 0.9 0.0 - 1.5 mg/dL 10/21/2025 7:45 AM EST [facility] Bilirubin, Direct 0.41(H) 0.00 - 0.40 mg/dL 10/21/2025 7:45 AM EST [facility] AST 64(H) 13 - 39 U/L 10/21/2025 7:45 AM EST [facility] ALT 389(H) 7 - 52 U/L 10/21/2025 7:45 AM EST [facility] Alkaline Phosphatase 83 36 - 125 U/L 10/21/2025 7:45 AM EST [facility] Total Protein 4.3(L) 6.4 - 8.9 g/dL 10/21/2025 7:45 AM EST [facility] Albumin 2.2(L) 3.5 - 5.7 g/dL 10/21/2025 7:45 AM EST [facility] Bilirubin, Indirect 0.49 0.00 - 1.10 mg/dL 10/21/2025 7:45 AM EST [facility] Plasma 10/21/2025 6:35 AM EST 10/21/2025 6:58 AM EST Aspen Parr MD LAB BLOOD ORDERABLES Final Resul t Performing Organization Address [facility] Co de Phone Number [facility] [address] [place] [address]. [address] * Magnesium (10/21/2025 6:35 AM EST) Magnesium 2.0 1.5 - 2.5 mg/dL 10/21/2025 7:45 AM EST [facility] Plasma 10/21/2025 6:35 AM EST 10/21/2025 6:58 AM EST Aspen Parr MD LAB BLOOD ORDERABLES Final Resul t Performing Organization Address [facility] Co de Phone Number [facility] [address] [place] [address]. [address] * (ABNORMAL) Renal Function Panel w/EGFR (10/21/2025 6:35 AM EST) Sodium 139 133 - 146 mmol/L 10/21/2025 7:45 AM [facility] Potassium 3.5 3.5 - 5.3 mmol/L 10/21/2025 7:45 AM [facility] Chloride 108 98 - 110 mmol/L 10/21/2025 7:45 AM [facility] CO2 26 21 - 33 mmol/L 10/21/2025 7:45 AM [facility] Comment:High lactate dehydro genase concentrations in patient samples may cause falsely increased bicarbonate results. If markedly elevated LDH is observed or suspected, please assess results in conjunction with patient`s clinical presentation. In cases of discrepant results, consider evaluating CO2 in with a blood gas order. Anion Gap 5 3 - 16 mmol/L 10/21/2025 7:45 AM [facility] BUN 39(H) 7 - 25 mg/dL 10/21/2025 7:45 AM [facility] Creatinine 0.96 0.60 - 1.30 mg/dL 10/21/2025 7:45 AM [facility] Glucose 126(H) 70 - 100 mg/dL 10/21/2025 7:45 AM [facility] Calcium 6.8(L) 8.6 - 10.3 mg/dL 10/21/2025 7:45 AM [facility] Phosphorus 2.8 2.1 - 4.7 mg/dL 10/21/2025 7:45 AM [facility] Albumin 2.2(L) 3.5 - 5.7 g/dL 10/21/2025 7:45 AM [facility] Osmolality, Calculated 299 278 - 305 mOsm/kg 10/21/2025 7:45 AM [facility] EGFR 88 10/21/2025 7:45 AM [facility] Comment:As of 2022, the estimated [...] MD LAB BLOOD ORDERABLES Final Resul t [facility] [address] [place] [address], [facility] * (ABNORMAL) CBC (10/21/2025 6:35 AM EST) WBC 8.4 3.8 - 10.8 10E3/uL 10/21/2025 7:55 AM EST [facility] RBC 2.68(L) 4.20 - 5.80 10E6/uL 10/21/2025 7:55 AM EST [facility] Hemoglobin 8.9(L) 13.2 - 17.1 g/dL 10/21/2025 7:55 AM [facility] Hematocrit 24.8(L) 38.5 - 50.0 % 10/21/2025 7:55 AM [facility] MCV 92.6 80.0 - 100.0 fL 10/21/2025 7:55 AM [facility] MCH 33.3(H) 27.0 - 33.0 pg 10/21/2025 7:55 AM [facility] MCHC 36.0 32.0 - 36.0 g/dL 10/21/2025 7:55 AM [facility] RDW 16.9(H) 11.0 - 15.0 % 10/21/2025 7:55 AM [facility] Platelets 20(L) 140 - 400 10E3/uL 10/21/2025 7:55 AM EST [facility] Comment: CNV Specimen checked for clots. None detected. MPV 8.5 7.5 - 11.5 fL 10/21/2025 7:55 AM EST [facility] Whole Blood 10/21/2025 6:35 AM EST 10/21/2025 6:58 AM EST Aspen Parr MD LAB BLOOD ORDERABLES Final Resul t Performing Organization Address [facility] Co de Phone Number [facility] [address] [facility]. [address] * (ABNORMAL) POC Glucose Monitoring Device (10/20/2025 5:17 PM EST) POC Glucose Monitoring Device 195(H) 70 - 100 mg/dL 10/20/2025 5:18 PM EST [facility] Blood 10/20/2025 5:17 PM EST 10/20/2025 5:18 PM EST Vani Winkler MD POINT OF CARE TEST ORDERABLE S Final Result Performing Organization Address [facility] de Phone Number [facility] [address] [facility]. [address] * (ABNORMAL) POC Glucose Monitoring Device (10/20/2025 2:24 PM EST) POC Glucose Monitoring Device 205(H) 70 - 100 mg/dL 10/20/2025 2:24 PM EST [facility] Blood 10/20/2025 2:24 PM EST 10/20/2025 2:24 PM EST Vani Winkler MD POINT OF CARE TEST ORDERABLE S Final Result Performing Organization Address [facility] de Phone Number [facility] [address] [facility]. [address] * Tacrolimus level (10/20/2025 10:31 AM EST) Tacrolimus (LC-MS) 7.9 3.0 - 15.0 ng/mL 10/20/2025 2:25 PM EST [facility] Comment:Performed via liquid chromatography tandem mass spectrometry. Detection limit: 1 ng/mL. Individual target concentrations may vary due to target organ and time after transplant. This test has been developed and its performance characteristics determined by [facility] which is certified under the [...] ORDERABLES Final Re sult Performing Organization Address [facility] Co de Phone Number [facility] [address] [place] [address]. [address] * (ABNORMAL) POC Glucose Monitoring Device (10/20/2025 9:24 AM EST) POC Glucose Monitoring Device 227(H) 70 - 100 mg/dL 10/20/2025 9:25 AM EST [facility] Blood 10/20/2025 9:24 AM EST 10/20/2025 9:25 AM EST Vani Winkler MD POINT OF CARE TEST ORDERABLE S Final Result Performing Organization Address [facility] de Phone Number [facility] [address] [place] [address]. [address] * Magnesium (10/20/2025 5:31 AM EST) Magnesium 2.1 1.5 - 2.5 mg/dL 10/20/2025 7:35 AM EST [facility] Plasma 10/20/2025 5:31 AM EST 10/20/2025 5:42 AM EST Aspen Parr MD LAB BLOOD ORDERABLES Final Resul t Performing Organization Address [facility] Co de Phone Number [facility] [address] [place] [address]. [address] * (ABNORMAL) Hepatic Function Panel (10/20/2025 5:31 AM EST) Total Bilirubin 0.9 0.0 - 1.5 mg/dL 10/20/2025 7:35 AM EST [facility] Bilirubin, Direct 0.43(H) 0.00 - 0.40 mg/dL 10/20/2025 7:35 AM EST [facility] AST 161(H) 13 - 39 U/L 10/20/2025 7:35 AM EST [facility] ALT 532(H) 7 - 52 U/L 10/20/2025 7:35 AM EST [facility] Alkaline Phosphatase 67 36 - 125 U/L 10/20/2025 7:35 AM EST [facility] Total Protein 4.2(L) 6.4 - 8.9 g/dL 10/20/2025 7:35 AM EST [facility] Albumin 2.2(L) 3.5 - 5.7 g/dL 10/20/2025 7:35 AM EST [facility] Bilirubin, Indirect 0.47 0.00 - 1.10 mg/dL 10/20/2025 7:35 AM EST [facility] Plasma 10/20/2025 5:31 AM EST 10/20/2025 5:42 AM EST us Aspen Parr MD LAB BLOOD ORDERABLES Final Resul t [facility] [address] * (ABNORMAL) Renal Function Panel w/EGFR (10/20/2025 5:31 AM EST) Sodium 142 133 - 146 mmol/L 10/20/2025 7:23 AM EST [facility] Potassium 3.8 3.5 - 5.3 mmol/L 10/20/2025 7:23 AM EST [facility] Chloride 111(H) 98 - 110 mmol/L 10/20/2025 7:23 AM EST [facility] CO2 25 21 - 33 mmol/L 10/20/2025 7:23 AM EST [facility] Comment:High lactate dehydro genase concentrations in patient samples may cause falsely increased bicarbonate results. If markedly elevated LDH is observed or suspected, please assess results in conjunction with patient`s clinical presentation. In cases of discrepant results, consider evaluating CO2 in with a blood gas order. Anion Gap 6 3 - 16 mmol/L 10/20/2025 7:23 AM EST [facility] BUN 47(H) 7 - 25 mg/dL 10/20/2025 7:23 AM EST [facility] Creatinine 1.15 0.60 - 1.30 mg/dL 10/20/2025 7:23 AM EST [facility] Glucose 198(H) 70 - 100 mg/dL 10/20/2025 7:23 AM EST [facility] Calcium 6.8(L) 8.6 - 10.3 mg/dL 10/20/2025 7:23 AM EST [facility] Phosphorus 4.8(H) 2.1 - 4.7 mg/dL 10/20/2025 7:35 AM EST [facility] Albumin 2.2(L) 3.5 - 5.7 g/dL 10/20/2025 7:35 AM EST [facility] Osmolality, Calculated 312(H) 278 - 305 mOsm/kg 10/20/2025 7:23 AM EST [facility] EGFR 71 10/20/2025 7:23 AM EST [facility] Comment:As of 2022, the [...] MD LAB BLOOD ORDERABLES Final Resul t [facility] [address] * (ABNORMAL) CBC (10/20/2025 5:31 AM EST) WBC 6.1 3.8 - 10.8 10E3/uL 10/20/2025 6:18 AM EST [facility] RBC 2.64(L) 4.20 - 5.80 10E6/uL 10/20/2025 6:18 AM EST [facility] Hemoglobin 8.5(L) 13.2 - 17.1 g/dL 10/20/2025 6:18 AM EST [facility] Hematocrit 24.6(L) 38.5 - 50.0 % 10/20/2025 6:18 AM EST [facility] MCV 93.2 80.0 - 100.0 fL 10/20/2025 6:18 AM EST [facility] MCH 32.2 27.0 - 33.0 pg 10/20/2025 6:18 AM EST [facility] MCHC 34.6 32.0 - 36.0 g/dL 10/20/2025 6:18 AM EST [facility] RDW 17.4(H) 11.0 - 15.0 % 10/20/2025 6:18 AM EST [facility] Platelets 17(LL) 140 - 400 10E3/uL 10/20/2025 6:18 AM EST [facility] Comment: Results verified by repeat analysis. Critical Result PLT:17 Called to and read back by ALEKSANDR SMITH RN at: 10/20/2025 06:18:19 by:DEJON FISHMAN 8.4 7.5 - 11.5 fL 10/20/2025 6:18 AM EST [facility] Whole Blood 10/20/2025 5:31 AM EST 10/20/2025 5:42 AM EST us Aspen Parr MD LAB BLOOD ORDERABLES Final Resul t [facility] [address] [facility] [place] [address], [facility] * (ABNORMAL) POC Glucose Monitoring Device (10/20/2025 5:30 AM EST) POC Glucose Monitoring Device 208(H) 70 - 100 mg/dL 10/20/2025 5:31 AM EST [facility] Blood 10/20/2025 5:30 AM EST 10/20/2025 5:31 AM EST Vani Winkler MD POINT OF CARE TEST ORDERABLE S Final Result Performing Organization Address [facility] Co de Phone Number [facility] [address] [place] [address]. [address] * (ABNORMAL) Protime-INR (10/19/2025 11:03 PM EST) Protime 18.2(H) 12.1 - 15.1 seconds 10/19/2025 11:27 PM EST [facility] INR 1.4(H) 0.9 - 1.1 10/19/2025 11:27 PM EST [facility] Comment: RECOMMENDED THERAPEUTIC RANGES USING INR : Stable oral anticoagulant therapy: 2.0 - 3.0 Mechanical prosthetic heart valve: 2.5 - 3.5 Recurrent acute myocardial infarction: 2.5 - 3.5 Plasma 10/19/2025 11:0 3 PM EST 10/19/2025 11:07 PM EST us Aspen Parr MD LAB BLOOD ORDERABLES Final Resul t Performing Organization Address City/[facility]/ZIP Co de Phone Number [facility] [address] [place] [address]. [address] * Magnesium (10/19/2025 11:03 PM EST) Magnesium 2.1 1.5 - 2.5 mg/dL 10/19/2025 11:45 PM EST [facility] Plasma 10/19/2025 11:0 3 PM EST 10/19/2025 11:07 PM EST Aspen Parr MD LAB BLOOD ORDERABLES Final Resul t [facility] [address] * (ABNORMAL) Hepatic Function Panel (10/19/2025 11:03 PM EST) Total Bilirubin 1.0 0.0 - 1.5 mg/dL 10/19/2025 11:45 PM EST [facility] Bilirubin, Direct 0.48(H) 0.00 - 0.40 mg/dL 10/19/2025 11:45 PM EST [facility] AST 223(H) 13 - 39 U/L 10/19/2025 11:45 PM EST [facility] ALT 569(H) 7 - 52 U/L 10/19/2025 11:45 PM EST [facility] Alkaline Phosphatase 68 36 - 125 U/L 10/19/2025 11:45 PM EST [facility] Total Protein 4.4(L) 6.4 - 8.9 g/dL 10/19/2025 11:45 PM EST [facility] Albumin 2.2(L) 3.5 - 5.7 g/dL 10/19/2025 11:45 PM EST [facility] Bilirubin, Indirect 0.52 0.00 - 1.10 mg/dL 10/19/2025 11:45 PM EST [facility] Plasma 10/19/2025 11:0 3 PM EST 10/19/2025 11:07 PM EST us Aspen Parr MD LAB BLOOD ORDERABLES Final Resul t [facility] [address] * (ABNORMAL) Renal Function Panel w/EGFR (10/19/2025 11:03 PM EST) Sodium 144 133 - 146 mmol/L 10/19/2025 11:33 PM EST [facility] Potassium 3.6 3.5 - 5.3 mmol/L 10/19/2025 11:33 PM EST [facility] Chloride 110 98 - 110 mmol/L 10/19/2025 11:33 PM EST [facility] CO2 25 21 - 33 mmol/L 10/19/2025 11:33 PM [facility] Comment:High lactate dehydro genase concentrations in patient samples may cause falsely increased bicarbonate results. If markedly elevated LDH is observed or suspected, please assess results in conjunction with patient`s clinical presentation. In cases of discrepant results, consider evaluating CO2 in with a blood gas order. Anion Gap 9 3 - 16 mmol/L 10/19/2025 11:33 PM EST [facility] BUN 46(H) 7 - 25 mg/dL 10/19/2025 11:33 PM [facility] Creatinine 1.24 0.60 - 1.30 mg/dL 10/19/2025 11:33 PM [facility] Glucose 184(H) 70 - 100 mg/dL 10/19/2025 11:33 PM [facility] Calcium 7.1(L) 8.6 - 10.3 mg/dL 10/19/2025 11:33 PM [facility] Phosphorus 4.9(H) 2.1 - 4.7 mg/dL 10/19/2025 11:45 PM [facility] Albumin 2.2(L) 3.5 - 5.7 g/dL 10/19/2025 11:45 PM [facility] Osmolality, Calculated 315(H) 278 - 305 mOsm/kg 10/19/2025 11:33 PM [facility] EGFR 65 10/19/2025 11:33 PM [facility] Comment:As of 2022, the estimated [...] MD LAB BLOOD ORDERABLES Final Resul t [facility] [address] [facility]. [address] * (ABNORMAL) CBC (10/19/2025 11:03 PM EST) WBC 7.0 3.8 - 10.8 10E3/uL 10/19/2025 11:20 PM EST [facility] RBC 2.77(L) 4.20 - 5.80 10E6/uL 10/19/2025 11:20 PM EST [facility] Hemoglobin 8.9(L) 13.2 - 17.1 g/dL 10/19/2025 11:20 PM EST [facility] Hematocrit 25.8(L) 38.5 - 50.0 % 10/19/2025 11:20 PM EST [facility] MCV 93.2 80.0 - 100.0 fL 10/19/2025 11:20 PM EST [facility] MCH 32.2 27.0 - 33.0 pg 10/19/2025 11:20 PM EST [facility] MCHC 34.5 32.0 - 36.0 g/dL 10/19/2025 11:20 PM EST [facility] RDW 18.1(H) 11.0 - 15.0 % 10/19/2025 11:20 PM EST [facility] Platelets 20(L) 140 - 400 10E3/uL 10/19/2025 11:20 PM EST [facility] Comment:CNV MPV 8.0 7.5 - 11.5 fL 10/19/2025 11:20 PM EST [facility] Whole Blood 10/19/2025 11:0 3 PM EST 10/19/2025 11:07 PM EST Aspen Parr MD LAB BLOOD ORDERABLES Final Resul t [facility] [address] [facility]. [address] * (ABNORMAL) POC Glucose Monitoring Device (10/19/2025 11:02 PM EST) POC Glucose Monitoring Device 185(H) 70 - 100 mg/dL 10/19/2025 11:03 PM EST [facility] Blood 10/19/2025 11:0 2 PM EST 10/19/2025 11:03 PM EST Vani Winkler MD POINT OF CARE TEST ORDERABLE S Final Result [facility] [address] [facility]. [address] * (ABNORMAL) POC Glucose Monitoring Device (10/19/2025 5:24 PM EST) POC Glucose Monitoring Device 166(H) 70 - 100 mg/dL 10/19/2025 5:35 PM EST [facility] Blood 10/19/2025 5:24 PM EST 10/19/2025 5:35 PM EST Vani Winkler MD POINT OF CARE TEST ORDERABLE S Final Result Performing Organization Address City/[facility]/ZIP Co de Phone Number [facility] [address] [facility]. [address] * (ABNORMAL) POC Glucose Monitoring Device (10/19/2025 12:26 PM EST) POC Glucose Monitoring Device 156(H) 70 - 100 mg/dL 10/19/2025 12:27 PM EST [facility] Blood 10/19/2025 12:2 6 PM EST 10/19/2025 12:27 PM EST Vani Winkler MD POINT OF CARE TEST ORDERABLE S Final Result [facility] [address] [facility]. [address] * (ABNORMAL) POC Glucose Monitoring Device (10/19/2025 9:51 AM EST) POC Glucose Monitoring Device 110(H) 70 - 100 mg/dL 10/19/2025 9:52 AM EST [facility] Blood 10/19/2025 9:51 AM EST 10/19/2025 9:52 AM EST Vani Winkler MD POINT OF CARE TEST ORDERABLE S Final Result Performing Organization Address [facility] Co de Phone Number [facility] [address] * (ABNORMAL) Tacrolimus level (10/19/2025 8:29 AM EST) Tacrolimus (LC-MS) 2.1(L) 3.0 - 15.0 ng/mL 10/19/2025 3:06 PM EST [facility] Comment:Performed via liquid chromatography tandem mass spectrometry. Detection limit: 1 ng/mL. Individual target concentrations may vary due to target organ and time after transplant. This test has been developed and its performance characteristics determined by [facility] which is certified under the [...] ORDERABLES Final Re sult Performing Organization Address City/[facility] Co de Phone Number [facility] [address] [facility]. [address] * (ABNORMAL) Protime-INR (10/19/2025 8:29 AM EST) Protime 19.1(H) 12.1 - 15.1 seconds 10/19/2025 9:09 AM EST [facility] INR 1.5(H) 0.9 - 1.1 10/19/2025 9:09 AM EST [facility] Comment: RECOMMENDED THERAPEUTIC RANGES USING INR : Stable oral anticoagulant therapy: 2.0 - 3.0 Mechanical prosthetic heart valve: 2.5 - 3.5 Recurrent acute myocardial infarction: 2.5 - 3.5 Plasma 10/19/2025 8:29 AM EST 10/19/2025 8:33 AM EST Aspen Parr MD LAB BLOOD ORDERABLES Final Resul t Performing Organization Address City/[facility]/ZIP Co de Phone Number [facility] [address] [facility]. [address] * Magnesium (10/19/2025 8:29 AM EST) Magnesium 2.0 1.5 - 2.5 mg/dL 10/19/2025 9:28 AM EST [facility] Plasma 10/19/2025 8:29 AM EST 10/19/2025 8:33 AM EST Aspen Parr MD LAB BLOOD ORDERABLES Final Resul t Performing Organization Address [facility] de Phone Number [facility] [address] * (ABNORMAL) Hepatic Function Panel (10/19/2025 8:29 AM EST) Total Bilirubin 1.0 0.0 - 1.5 mg/dL 10/19/2025 9:28 AM EST [facility] Bilirubin, Direct 0.44(H) 0.00 - 0.40 mg/dL 10/19/2025 9:28 AM EST [facility] AST 450(H) 13 - 39 U/L 10/19/2025 9:28 AM EST [facility] ALT 725(H) 7 - 52 U/L 10/19/2025 9:28 AM EST [facility] Alkaline Phosphatase 65 36 - 125 U/L 10/19/2025 9:28 AM EST [facility] Total Protein 4.4(L) 6.4 - 8.9 g/dL 10/19/2025 9:28 AM EST [facility] Albumin 2.2(L) 3.5 - 5.7 g/dL 10/19/2025 9:28 AM EST [facility] Bilirubin, Indirect 0.56 0.00 - 1.10 mg/dL 10/19/2025 9:28 AM EST [facility] Plasma 10/19/2025 8:29 AM EST 10/19/2025 8:33 AM EST us Aspen Parr MD LAB BLOOD ORDERABLES Final Resul t [facility] [address] * (ABNORMAL) Renal Function Panel w/EGFR (10/19/2025 8:29 AM EST) Sodium 145 133 - 146 mmol/L 10/19/2025 9:09 AM EST [facility] Potassium 3.6 3.5 - 5.3 mmol/L 10/19/2025 9:09 AM [facility] Chloride 113(H) 98 - 110 mmol/L 10/19/2025 9:09 AM [facility] CO2 25 21 - 33 mmol/L 10/19/2025 9:09 AM [facility] Comment:High lactate dehydro genase concentrations in patient samples may cause falsely increased bicarbonate results. If markedly elevated LDH is observed or suspected, please assess results in conjunction with patient`s clinical presentation. In cases of discrepant results, consider evaluating CO2 in with a blood gas order. Anion Gap 7 3 - 16 mmol/L 10/19/2025 9:09 AM EST [facility] BUN 38(H) 7 - 25 mg/dL 10/19/2025 9:09 AM [facility] Creatinine 1.16 0.60 - 1.30 mg/dL 10/19/2025 9:09 AM [facility] Glucose 129(H) 70 - 100 mg/dL 10/19/2025 9:09 AM [facility] Calcium 7.2(L) 8.6 - 10.3 mg/dL 10/19/2025 9:09 AM [facility] Phosphorus 4.0 2.1 - 4.7 mg/dL 10/19/2025 9:28 AM [facility] Albumin 2.2(L) 3.5 - 5.7 g/dL 10/19/2025 9:28 AM EST [facility] Osmolality, Calculated 311(H) 278 - 305 mOsm/kg 10/19/2025 9:09 AM EST [facility] EGFR 70 10/19/2025 9:09 AM EST [facility] Comment:As of 2022, the [...] MD LAB BLOOD ORDERABLES Final Resul t [facility] [address] [place] [address], [facility] * (ABNORMAL) CBC (10/19/2025 8:29 AM EST) WBC 9.8 3.8 - 10.8 10E3/uL 10/19/2025 9:06 AM EST [facility] RBC 2.90(L) 4.20 - 5.80 10E6/uL 10/19/2025 9:06 AM EST [facility] Hemoglobin 9.6(L) 13.2 - 17.1 g/dL 10/19/2025 9:06 AM EST [facility] Hematocrit 26.8(L) 38.5 - 50.0 % 10/19/2025 9:06 AM EST [facility] MCV 92.4 80.0 - 100.0 fL 10/19/2025 9:06 AM EST [facility] MCH 33.2(H) 27.0 - 33.0 pg 10/19/2025 9:06 AM EST [facility] MCHC 36.0 32.0 - 36.0 g/dL 10/19/2025 9:06 AM EST [facility] RDW 18.5(H) 11.0 - 15.0 % 10/19/2025 9:06 AM EST [facility] Platelets 22(L) 140 - 400 10E3/uL 10/19/2025 9:06 AM EST [facility] Comment: CNV Specimen checked for clots. None detected. MPV 8.5 7.5 - 11.5 fL 10/19/2025 9:06 AM EST [facility] Whole Blood 10/19/2025 8:29 AM EST 10/19/2025 8:33 AM EST us Aspen Parr MD LAB BLOOD ORDERABLES Final Resul t [facility] [address] * (ABNORMAL) POC Glucose Monitoring Device (10/19/2025 8:28 AM EST) POC Glucose Monitoring Device 122(H) 70 - 100 mg/dL 10/19/2025 8:39 AM EST [facility] Blood 10/19/2025 8:28 AM EST 10/19/2025 8:38 AM EST us Vani Winkler MD POINT OF CARE TEST ORDERABLE S Final Result [facility] [address] * (ABNORMAL) POC Glucose Monitoring Device (10/19/2025 7:07 AM EST) POC Glucose Monitoring Device 136(H) 70 - 100 mg/dL 10/19/2025 7:08 AM EST [facility] Blood 10/19/2025 7:07 AM EST 10/19/2025 7:08 AM EST us Vani Winkler MD POINT OF CARE TEST ORDERABLE S Final Result Performing Organization Address [facility] Co de Phone Number [facility] [address] [place] [address]. [address] * (ABNORMAL) POC Glucose Monitoring Device (10/19/2025 6:28 AM EST) POC Glucose Monitoring Device 109(H) 70 - 100 mg/dL 10/19/2025 6:29 AM EST [facility] Blood 10/19/2025 6:28 AM EST 10/19/2025 6:29 AM EST us Vani Winkler MD POINT OF CARE TEST ORDERABLE S Final Result Performing Organization Address [facility] de Phone Number [address] * (ABNORMAL) POC Glucose Monitoring Device (10/19/2025 6:10 AM EST) POC Glucose Monitoring Device 108(H) 70 - 100 mg/dL 10/19/2025 6:12 AM EST [facility] Blood 10/19/2025 6:10 AM EST 10/19/2025 6:11 AM EST us Vani Winkler MD POINT OF CARE TEST ORDERABLE S Final Result Performing Organization Address [facility] Co de Phone Number [facility] [address] [place] [address]. [address] * (ABNORMAL) POC Glucose Monitoring Device (10/19/2025 4:06 AM EST) POC Glucose Monitoring Device 115(H) 70 - 100 mg/dL 10/19/2025 4:07 AM EST [facility] Blood 10/19/2025 4:06 AM EST 10/19/2025 4:07 AM EST us Vani Winkler MD POINT OF CARE TEST ORDERABLE S Final Result Performing Organization Address City/[facility]/ZIP Co de Phone Number [facility] [address] * (ABNORMAL) POC Glucose Monitoring Device (10/19/2025 2:04 AM EST) POC Glucose Monitoring Device 129(H) 70 - 100 mg/dL 10/19/2025 2:06 AM EST [facility] Blood 10/19/2025 2:04 AM EST 10/19/2025 2:05 AM EST us Vani Winkler MD POINT OF CARE TEST ORDERABLE S Final Result Performing Organization Address [facility] Co de Phone Number [facility] [address] [facility]. [address] * (ABNORMAL) POC Glucose Monitoring Device (10/18/2025 11:57 PM EST) POC Glucose Monitoring Device 131(H) 70 - 100 mg/dL 10/18/2025 11:58 PM EST [facility] Blood 10/18/2025 11:5 7 PM EST 10/18/2025 11:58 PM EST us Vani Winkler MD POINT OF CARE TEST ORDERABLE S Final Result Performing Organization Address [facility] Co de Phone Number [facility] [address] * Lactic Acid (10/18/2025 10:20 PM EST) Lactate 0.8 0.5 - 2.2 mmol/L 10/18/2025 11:03 PM EST [facility] Plasma 10/18/2025 10:2 0 PM EST 10/18/2025 10:26 PM EST us Aspen Parr MD LAB BLOOD ORDERABLES Final Resul t Performing Organization Address City/[facility]/ZIP Co de Phone Number [facility] [address] * Magnesium (10/18/2025 10:20 PM EST) Magnesium 1.8 1.5 - 2.5 mg/dL 10/18/2025 11:18 PM EST [facility] Plasma 10/18/2025 10:2 0 PM EST 10/18/2025 10:26 PM EST Aspen Parr MD LAB BLOOD ORDERABLES Final Resul t Performing Organization Address City/[facility]/ZIP Co de Phone Number [facility] [address] [facility]. [address] * (ABNORMAL) Hepatic Function Panel (10/18/2025 10:20 PM EST) Total Bilirubin 1.0 0.0 - 1.5 mg/dL 10/18/2025 11:18 PM EST [facility] Bilirubin, Direct 0.51(H) 0.00 - 0.40 mg/dL 10/18/2025 11:18 PM EST [facility] AST 717(H) 13 - 39 U/L 10/18/2025 11:18 PM EST [facility] ALT 792(H) 7 - 52 U/L 10/18/2025 11:18 PM EST [facility] Alkaline Phosphatase 62 36 - 125 U/L 10/18/2025 11:18 PM EST [facility] Total Protein 4.3(L) 6.4 - 8.9 g/dL 10/18/2025 11:18 PM EST [facility] Albumin 2.1(L) 3.5 - 5.7 g/dL 10/18/2025 11:18 PM EST [facility] Bilirubin, Indirect 0.49 0.00 - 1.10 mg/dL 10/18/2025 11:18 PM EST [facility] Plasma 10/18/2025 10:2 0 PM EST 10/18/2025 10:26 PM EST Aspen Parr MD LAB BLOOD ORDERABLES Final Resul t [facility] [address] * (ABNORMAL) Renal Function Panel w/EGFR (10/18/2025 10:20 PM EST) Sodium 146 133 - 146 mmol/L 10/18/2025 11:05 PM [facility] Potassium 3.1(L) 3.5 - 5.3 mmol/L 10/18/2025 11:05 PM [facility] Chloride 113(H) 98 - 110 mmol/L 10/18/2025 11:05 PM [facility] CO2 24 21 - 33 mmol/L 10/18/2025 11:05 PM [facility] Comment:High lactate dehydro genase concentrations in patient samples may cause falsely increased bicarbonate results. If markedly elevated LDH is observed or suspected, please assess results in conjunction with patient`s clinical presentation. In cases of discrepant results, consider evaluating CO2 in with a blood gas order. Anion Gap 9 3 - 16 mmol/L 10/18/2025 11:05 PM [facility] BUN 32(H) 7 - 25 mg/dL 10/18/2025 11:05 PM [facility] Creatinine 1.09 0.60 - 1.30 mg/dL 10/18/2025 11:05 PM [facility] Glucose 129(H) 70 - 100 mg/dL 10/18/2025 11:05 PM [facility] Calcium 7.4(L) 8.6 - 10.3 mg/dL 10/18/2025 11:05 PM [facility] Phosphorus 4.0 2.1 - 4.7 mg/dL 10/18/2025 11:18 PM [facility] Albumin 2.1(L) 3.5 - 5.7 g/dL 10/18/2025 11:18 PM [facility] Osmolality, Calculated 311(H) 278 - 305 mOsm/kg 10/18/2025 11:05 PM [facility] EGFR 76 10/18/2025 11:05 PM [facility] Comment:As of 2022, the estimated [...] ORDERABLES Final Resul t Performing Organization Address [facility] de Phone Number [facility] [address] * (ABNORMAL) Protime-INR (10/18/2025 10:20 PM EST) Protime 21.9(H) 12.1 - 15.1 seconds 10/18/2025 10:52 PM EST [facility] INR 1.8(H) 0.9 - 1.1 10/18/2025 10:52 PM EST [facility] Comment: RECOMMENDED THERAPEUTIC RANGES USING INR : Stable oral anticoagulant therapy: 2.0 - 3.0 Mechanical prosthetic heart valve: 2.5 - 3.5 Recurrent acute myocardial infarction: 2.5 - 3.5 Plasma 10/18/2025 10:2 0 PM EST 10/18/2025 10:26 PM EST Aspen Parr MD LAB BLOOD ORDERABLES Final Resul t Performing Organization Address [facility] Co de Phone Number [facility] [address] * (ABNORMAL) CBC (10/18/2025 10:20 PM EST) WBC 11.4(H) 3.8 - 10.8 10E3/uL 10/18/2025 10:59 PM EST [facility] RBC 2.92(L) 4.20 - 5.80 10E6/uL 10/18/2025 10:59 PM EST [facility] Hemoglobin 9.5(L) 13.2 - 17.1 g/dL 10/18/2025 10:59 PM EST [facility] Hematocrit 26.9(L) 38.5 - 50.0 % 10/18/2025 10:59 PM EST [facility] MCV 92.2 80.0 - 100.0 fL 10/18/2025 10:59 PM EST [facility] MCH 32.7 27.0 - 33.0 pg 10/18/2025 10:59 PM EST [facility] MCHC 35.4 32.0 - 36.0 g/dL 10/18/2025 10:59 PM EST [facility] RDW 18.3(H) 11.0 - 15.0 % 10/18/2025 10:59 PM EST [facility] Platelets 22(L) 140 - 400 10E3/uL 10/18/2025 10:59 PM EST [facility] Comment: CNV Specimen checked for clots. None detected. MPV 7.8 7.5 - 11.5 fL 10/18/2025 10:59 PM EST [facility] Whole Blood 10/18/2025 10:2 0 PM EST 10/18/2025 10:26 PM EST us Aspen Parr MD LAB BLOOD ORDERABLES Final Resul t [facility] [address] * (ABNORMAL) POC Glucose Monitoring Device (10/18/2025 10:07 PM EST) POC Glucose Monitoring Device 134(H) 70 - 100 mg/dL 10/18/2025 10:08 PM EST [facility] Blood 10/18/2025 10:0 7 PM EST 10/18/2025 10:08 PM EST us Vani Winkler MD POINT OF CARE TEST ORDERABLE S Final Result [facility] [address] * (ABNORMAL) POC Glucose Monitoring Device (10/18/2025 8:14 PM EST) POC Glucose Monitoring Device 138(H) 70 - 100 mg/dL 10/18/2025 8:15 PM EST [facility] Blood 10/18/2025 8:14 PM EST 10/18/2025 8:15 PM EST Vani Winkler MD POINT OF CARE TEST ORDERABLE S Final Result [facility] [address] [facility]. [address] * Lactic Acid (10/18/2025 5:47 PM EST) Lactate 0.7 0.5 - 2.2 mmol/L 10/18/2025 8:43 PM EST [facility] Plasma 10/18/2025 5:47 PM EST 10/18/2025 7:56 PM EST Aspen Parr MD LAB BLOOD ORDERABLES Final Resul t Performing Organization Address [facility]/ZIP Co de Phone Number [facility] [address] [facility]. [address] * Magnesium (10/18/2025 5:47 PM EST) Magnesium 1.9 1.5 - 2.5 mg/dL 10/18/2025 6:40 PM EST [facility] Plasma 10/18/2025 5:47 PM EST 10/18/2025 5:54 PM EST Aspen Parr MD LAB BLOOD ORDERABLES Final Resul t [facility] [address] [facility]. [address] * (ABNORMAL) Hepatic Function Panel (10/18/2025 5:47 PM EST) Total Bilirubin 1.1 0.0 - 1.5 mg/dL 10/18/2025 6:40 PM EST [facility] Bilirubin, Direct 0.56(H) 0.00 - 0.40 mg/dL 10/18/2025 6:40 PM EST [facility] AST 965(H) 13 - 39 U/L 10/18/2025 6:40 PM EST [facility] ALT 871(H) 7 - 52 U/L 10/18/2025 6:40 PM EST [facility] Alkaline Phosphatase 61 36 - 125 U/L 10/18/2025 6:40 PM EST [facility] Total Protein 4.3(L) 6.4 - 8.9 g/dL 10/18/2025 6:40 PM EST [facility] Albumin 2.2(L) 3.5 - 5.7 g/dL 10/18/2025 6:40 PM EST [facility] Bilirubin, Indirect 0.54 0.00 - 1.10 mg/dL 10/18/2025 6:40 PM EST [facility] Plasma 10/18/2025 5:47 PM EST 10/18/2025 5:54 PM EST us Aspen Parr MD LAB BLOOD ORDERABLES Final Resul t [facility] [address] * (ABNORMAL) Renal Function Panel w/EGFR (10/18/2025 5:47 PM EST) Sodium 144 133 - 146 mmol/L 10/18/2025 6:27 PM EST [facility] Potassium 3.4(L) 3.5 - 5.3 mmol/L 10/18/2025 6:27 PM EST [facility] Chloride 112(H) 98 - 110 mmol/L 10/18/2025 6:27 PM EST [facility] CO2 24 21 - 33 mmol/L 10/18/2025 6:27 PM EST [facility] Comment:High lactate dehydro genase concentrations in patient samples may cause falsely increased bicarbonate results. If markedly elevated LDH is observed or suspected, please assess results in conjunction with patient`s clinical presentation. In cases of discrepant results, consider evaluating CO2 in with a blood gas order. Anion Gap 8 3 - 16 mmol/L 10/18/2025 6:27 PM EST [facility] BUN 29(H) 7 - 25 mg/dL 10/18/2025 6:27 PM EST [facility] Creatinine 1.09 0.60 - 1.30 mg/dL 10/18/2025 6:27 PM [facility] Glucose 136(H) 70 - 100 mg/dL 10/18/2025 6:27 PM EST [facility] Calcium 7.5(L) 8.6 - 10.3 mg/dL 10/18/2025 6:27 PM EST [facility] Phosphorus 3.8 2.1 - 4.7 mg/dL 10/18/2025 6:40 PM EST [facility] Albumin 2.2(L) 3.5 - 5.7 g/dL 10/18/2025 6:40 PM EST [facility] Osmolality, Calculated 306(H) 278 - 305 mOsm/kg 10/18/2025 6:27 PM EST [facility] EGFR 76 10/18/2025 6:27 PM EST [facility] Comment:As of 2022, the [...] MD LAB BLOOD ORDERABLES Final Resul t [facility] [address] [facility]. [address] * (ABNORMAL) Protime-INR (10/18/2025 5:47 PM EST) Protime 21.8(H) 12.1 - 15.1 seconds 10/18/2025 6:13 PM EST [facility] INR 1.8(H) 0.9 - 1.1 10/18/2025 6:13 PM EST [facility] Comment: RECOMMENDED THERAPEUTIC RANGES USING INR : Stable oral anticoagulant therapy: 2.0 - 3.0 Mechanical prosthetic heart valve: 2.5 - 3.5 Recurrent acute myocardial infarction: 2.5 - 3.5 Plasma 10/18/2025 5:47 PM EST 10/18/2025 5:54 PM EST us Aspen Parr MD LAB BLOOD ORDERABLES Final Resul t Performing Organization Address [facility] Co de Phone Number [facility] [address] * (ABNORMAL) CBC (10/18/2025 5:47 PM EST) WBC 11.8(H) 3.8 - 10.8 10E3/uL 10/18/2025 6:06 PM EST [facility] RBC 3.06(L) 4.20 - 5.80 10E6/uL 10/18/2025 6:06 PM EST [facility] Hemoglobin 10.0(L) 13.2 - 17.1 g/dL 10/18/2025 6:06 PM [facility] Hematocrit 28.3(L) 38.5 - 50.0 % 10/18/2025 6:06 PM EST [facility] MCV 92.5 80.0 - 100.0 fL 10/18/2025 6:06 PM EST [facility] MCH 32.5 27.0 - 33.0 pg 10/18/2025 6:06 PM EST [facility] MCHC 35.2 32.0 - 36.0 g/dL 10/18/2025 6:06 PM [facility] RDW 18.6(H) 11.0 - 15.0 % 10/18/2025 6:06 PM EST [facility] Platelets 22(L) 140 - 400 10E3/uL 10/18/2025 6:06 PM EST [facility] Comment: CNV Specimen checked for clots. None detected. MPV 7.7 7.5 - 11.5 fL 10/18/2025 6:06 PM EST [facility] Whole Blood 10/18/2025 5:47 PM EST 10/18/2025 5:54 PM EST Aspen Parr MD LAB BLOOD ORDERABLES Final Resul t [facility] [address] [facility]. [address] * (ABNORMAL) POC Glucose Monitoring Device (10/18/2025 5:45 PM EST) POC Glucose Monitoring Device 135(H) 70 - 100 mg/dL 10/18/2025 5:46 PM EST [facility] Blood 10/18/2025 5:45 PM EST 10/18/2025 5:46 PM EST Vani Winkler MD POINT OF CARE TEST ORDERABLE S Final Result Performing Organization Address City/[facility]/ZIP Co de Phone Number [facility] [address] [facility]. [address] * (ABNORMAL) POC Glucose Monitoring Device (10/18/2025 3:06 PM EST) POC Glucose Monitoring Device 128(H) 70 - 100 mg/dL 10/18/2025 3:07 PM EST [facility] Blood 10/18/2025 3:06 PM EST 10/18/2025 3:07 PM EST Vani Winkler MD POINT OF CARE TEST ORDERABLE S Final Result Performing Organization Address City/[facility]/ZIP Co de Phone Number [facility] [address] [facility] * (ABNORMAL) POC Glucose Monitoring Device (10/18/2025 1:15 PM EST) POC Glucose Monitoring Device 128(H) 70 - 100 mg/dL 10/18/2025 1:15 PM EST [facility] Blood 10/18/2025 1:15 PM EST 10/18/2025 1:15 PM EST Vani Winkler MD POINT OF CARE TEST ORDERABLE S Final Result [facility] [address] [facility]. [address] * (ABNORMAL) POC Glucose Monitoring Device (10/18/2025 12:12 PM EST) POC Glucose Monitoring Device 124(H) 70 - 100 mg/dL 10/18/2025 12:13 PM EST [facility] Blood 10/18/2025 12:1 2 PM EST 10/18/2025 12:13 PM EST Vani Winkler MD POINT OF CARE TEST ORDERABLE S Final Result [facility] [address] [facility]. [address] * Prepare Fresh Frozen Plasma (10/18/2025 11:58 AM EST) Product Code [id number] [facility] Unit Number [id number] [facility] Dispense Status Released from [employer] [facility]LL Blood Expiration Date HCLL Coding System [id number] [facility] Product Code [id number] [facility] Unit Number [id number] [facility]LL Dispense Status Released from [employer] [facility]LL Blood Expiration Date HCLL Coding System [id number] HCLL Product Code N4383E46 [facility]LL Unit Number [id number] HCLL Dispense Status Released from [employer] [facility]LL Blood Expiration Date HCLL Coding System [id number] HCLL Product Code [id number] [facility] Unit Number [id number] [facility]LL Dispense Status Released from [employer] [facility]LL Blood Expiration Date HCLL Coding System [id number] HCLL Product Code [id number] [facility] Unit Number [id number] [facility]LL Dispense Status Released from [employer] [facility]LL Blood Expiration Date HCLL Coding System [id number] HCLL us Attending Provider Unknown BLOOD BANK PRODUCT OR DERABLES Final Result HC[facility] * Lactic Acid (10/18/2025 11:21 AM EST) Lactate 0.7 0.5 - 2.2 mmol/L 10/18/2025 12:05 PM EST [facility] Plasma 10/18/2025 11:2 1 AM EST 10/18/2025 11:25 AM EST us Aspen Parr MD LAB BLOOD ORDERABLES Final Resul t Performing Organization Address [facility] Co de Phone Number [facility] [address] [place] [address]. [address] * Magnesium (10/18/2025 11:21 AM EST) Magnesium 2.0 1.5 - 2.5 mg/dL 10/18/2025 12:23 PM EST [facility] Plasma 10/18/2025 11:2 1 AM EST 10/18/2025 11:25 AM EST Aspen Parr MD LAB BLOOD ORDERABLES Final Resul t Performing Organization Address [facility] Co de Phone Number [facility] [address] [place] [address] * (ABNORMAL) Hepatic Function Panel (10/18/2025 11:21 AM EST) Total Bilirubin 1.3 0.0 - 1.5 mg/dL 10/18/2025 12:23 PM EST [facility] Bilirubin, Direct 0.74(H) 0.00 - 0.40 mg/dL 10/18/2025 12:23 PM EST [facility] AST 1,689(H) 13 - 39 U/L 10/18/2025 12:23 PM EST [facility] ALT 1034(H) 7 - 52 U/L 10/18/2025 12:23 PM EST [facility] Alkaline Phosphatase 60 36 - 125 U/L 10/18/2025 12:23 PM [facility] Total Protein 4.3(L) 6.4 - 8.9 g/dL 10/18/2025 12:23 PM EST [facility] Albumin 2.3(L) 3.5 - 5.7 g/dL 10/18/2025 12:23 PM EST [facility] Bilirubin, Indirect 0.56 0.00 - 1.10 mg/dL 10/18/2025 12:23 PM [facility] Plasma 10/18/2025 11:2 1 AM EST 10/18/2025 11:25 AM EST us Aspen Parr MD LAB BLOOD ORDERABLES Final Resul t [facility] [address] * (ABNORMAL) Renal Function Panel w/EGFR (10/18/2025 11:21 AM EST) Sodium 146 133 - 146 mmol/L 10/18/2025 12:06 PM [facility] Potassium 3.9 3.5 - 5.3 mmol/L 10/18/2025 12:06 PM [facility] Chloride 114(H) 98 - 110 mmol/L 10/18/2025 12:06 PM EST [facility] CO2 25 21 - 33 mmol/L 10/18/2025 12:06 PM EST [facility] Comment:High lactate dehydro genase concentrations in patient samples may cause falsely increased bicarbonate results. If markedly elevated LDH is observed or suspected, please assess results in conjunction with patient`s clinical presentation. In cases of discrepant results, consider evaluating CO2 in with a blood gas order. Anion Gap 7 3 - 16 mmol/L 10/18/2025 12:06 PM EST [facility] BUN 26(H) 7 - 25 mg/dL 10/18/2025 12:06 PM EST [facility] Creatinine 1.01 0.60 - 1.30 mg/dL 10/18/2025 12:06 PM EST [facility] Glucose 113(H) 70 - 100 mg/dL 10/18/2025 12:06 PM EST [facility] Calcium 7.8(L) 8.6 - 10.3 mg/dL 10/18/2025 12:06 PM EST [facility] Phosphorus 3.1 2.1 - 4.7 mg/dL 10/18/2025 12:23 PM EST [facility] Albumin 2.3(L) 3.5 - 5.7 g/dL 10/18/2025 12:23 PM EST [facility] Osmolality, Calculated 308(H) 278 - 305 mOsm/kg 10/18/2025 12:06 PM EST [facility] EGFR 83 10/18/2025 12:06 PM EST [facility] Comment:As of 2022, the [...] MD LAB BLOOD ORDERABLES Final Resul t [facility] [address] [place] * (ABNORMAL) Protime-INR (10/18/2025 11:21 AM EST) Protime 23.6(H) 12.1 - 15.1 seconds 10/18/2025 11:44 AM EST [facility] INR 2.0(H) 0.9 - 1.1 10/18/2025 11:44 AM EST [facility] Comment: RECOMMENDED THERAPEUTIC RANGES USING INR : Stable oral anticoagulant therapy: 2.0 - 3.0 Mechanical prosthetic heart valve: 2.5 - 3.5 Recurrent acute myocardial infarction: 2.5 - 3.5 Plasma 10/18/2025 11:2 1 AM EST 10/18/2025 11:25 AM EST us Aspen Parr MD LAB BLOOD ORDERABLES Final Resul t [facility] [address] * (ABNORMAL) CBC (10/18/2025 11:21 AM EST) WBC 10.9(H) 3.8 - 10.8 10E3/uL 10/18/2025 11:44 AM EST [facility] RBC 3.10(L) 4.20 - 5.80 10E6/uL 10/18/2025 11:44 AM EST [facility] Hemoglobin 10.2(L) 13.2 - 17.1 g/dL 10/18/2025 11:44 AM EST [facility] Hematocrit 29.0(L) 38.5 - 50.0 % 10/18/2025 11:44 AM EST [facility] MCV 93.7 80.0 - 100.0 fL 10/18/2025 11:44 AM EST [facility] MCH 32.9 27.0 - 33.0 pg 10/18/2025 11:44 AM EST [facility] MCHC 35.1 32.0 - 36.0 g/dL 10/18/2025 11:44 AM EST [facility] RDW 18.4(H) 11.0 - 15.0 % 10/18/2025 11:44 AM EST [facility] Platelets 29(L) 140 - 400 10E3/uL 10/18/2025 11:44 AM EST [facility] Comment:CNV MPV 7.6 7.5 - 11.5 fL 10/18/2025 11:44 AM EST [facility] Whole Blood 10/18/2025 11:2 1 AM EST 10/18/2025 11:25 AM EST us Aspen Parr MD LAB BLOOD ORDERABLES Final Resul t [facility] [address] [facility] * (ABNORMAL) POC Glucose Monitoring Device (10/18/2025 11:04 AM EST) POC Glucose Monitoring Device 121(H) 70 - 100 mg/dL 10/18/2025 11:05 AM EST [facility] Blood 10/18/2025 11:0 4 AM EST 10/18/2025 11:05 AM EST us Vani Winkler MD POINT OF CARE TEST ORDERABLE S Final Result Performing Organization Address [facility] Co de Phone Number [facility] [address] [facility] * (ABNORMAL) POC Glucose Monitoring Device (10/18/2025 10:29 AM EST) POC Glucose Monitoring Device 120(H) 70 - 100 mg/dL 10/18/2025 10:34 AM EST [facility] Blood 10/18/2025 10:2 9 AM EST 10/18/2025 10:34 AM EST Vani Winkler MD POINT OF CARE TEST ORDERABLE S Final Result [facility] [address] [facility] * US Duplex [id number]-[id number] Comp (10/18/2025 9:35 AM EST) Anatomical Region [...] EXAM: US ABDOMEN LIMITED EXAM: US DUPLEX [id number] COMPLETE INDICATION: Post-op liver transplant Day 1 [...] EXAM: US ABDOMEN LIMITED EXAM: US DUPLEX [id number] COMPLETE INDICATION: Post-op liver transplant Day 1 [...] Suárez MD at 10/18/2025 9:53 AM EST us Aspen Parr MD IMG US ORDERABLES Final Result * US Abdomen [...] EXAM: US ABDOMEN LIMITED EXAM: US DUPLEX [id number] COMPLETE INDICATION: Post-op liver transplant Day 1 [...] EXAM: US ABDOMEN LIMITED EXAM: US DUPLEX [id number] COMPLETE INDICATION: Post-op liver transplant Day 1 [...] 10/18/2025 9:53 AM EST Aspen Parr MD [facility] ORDERABLES Final Result * (ABNORMAL) POC Glucose Monitoring Device (10/18/2025 9:11 AM EST) POC Glucose Monitoring Device 165(H) 70 - 100 mg/dL 10/18/2025 9:13 AM EST [facility] Blood 10/18/2025 9:11 AM EST 10/18/2025 9:12 AM EST Vani Winkler MD POINT OF CARE TEST ORDERABLE S Final Result Performing Organization Address [facility] Co de Phone Number [facility] [address] [facility]. [address] * (ABNORMAL) POC Glucose Monitoring Device (10/18/2025 7:56 AM EST) POC Glucose Monitoring Device 179(H) 70 - 100 mg/dL 10/18/2025 7:57 AM EST [facility] Blood 10/18/2025 7:56 AM EST 10/18/2025 7:57 AM EST Vani Winkler MD POINT OF CARE TEST ORDERABLE S Final Result Performing Organization Address [facility] Co de Phone Number [facility] [address] [facility] * (ABNORMAL) POC Glucose Monitoring Device (10/18/2025 6:59 AM EST) POC Glucose Monitoring Device 187(H) 70 - 100 mg/dL 10/18/2025 7:00 AM EST [facility] Blood 10/18/2025 6:59 AM EST 10/18/2025 7:00 AM EST Vani Winkler MD POINT OF CARE TEST ORDERABLE S Final Result Performing Organization Address [facility] Co de Phone Number [facility] [address] [facility] * X-ray Portable Chest (10/18/2025 6:37 AM [...] below level of diaphragms and outside the [id number]-bz-muft. Right internal jugular approach pulmonary artery catheter [...] courses below level of diaphragms andoutside the ucvsj-ce-vzhw. Right internal jugular approach pulmonaryartery catheter projects [...] Kebede DO at 10/18/2025 7:02 AM EST us Aspen Parr MD [facility] DIAGNOSTIC IMAGING ORDERABLE S Final Result * Prepare Platelets, leukoreduced, 1 Units (10/18/2025 6:17 AM EST) Product Code L7165W66 HCLL Unit Number [id number] HCLL Dispense Status Presumed Transfused_PT [facility] Ex[facility] CAGQ418 [facility] Blood Bank Product Oskar Torres MD BLOOD BANK PRODUCT ORDERABLES Final Result Performing Organization Address City/[facility] Co de Phone Number HCLL * Prepare Platelets, leukoreduced, 2 Units (10/18/2025 6:17 AM EST) Product Code GC958A33 HCLL Unit Number [id number] HCLL Dispense Status Presumed Transfused_PT HCLL Blood Expiration Date HCLL Coding System DHSV179 HCLL Product Code A5084L71 HCLL Unit Number [id number] HCLL Dispense Status Presumed Transfused_PT HCLL Blood Expiration Date HCLL Coding System WZRC004 HCLL Blood Bank Product Slade Munoz MD BLOOD BANK PRODUCT ORDERABLES Fi nal Result Performing Organization Address [facility] de Phone Number HCLL * Prepare RBC, leukoreduced, 5 Units (10/18/2025 6:16 AM EST) Product Code L5403C82 HCLL Unit Number [id number] HCLL Dispense Status Presumed Transfused_PT HCLL Blood Expiration Date HCLL Coding System QCEY061 HCLL Product Code Z6491L83 HCLL Unit Number [id number] HCLL Dispense Status Presumed Transfused_PT HCLL Blood Expiration Date HCLL Coding System WQRG190 HCLL Product Code S6598J67 HCLL Unit Number [id number] HCLL Dispense Status Presumed Transfused_PT HCLL Blood Expiration Date HCLL Coding System MANE494 HCLL Product Code Y2122F57 HCLL Unit Number [id number] HCLL Dispense Status Released from Crossmatch_RE HCLL Blood Expiration Date HCLL Coding System PLMO208 HCLL Product Code T7420P39 HCLL Unit Number [id number] HCLL Dispense Status Presumed Transfused_PT HCLL Blood Expiration Date HCLL Coding System WAQT495 HCLL Blood Bank Product Kassi INTERIANO BLOOD BANK PRODUCT ORDERABLES Final Result Performing Organization Address City/[facility] Co de Phone Number HCLL * Prepare Cryoprecipitate (10/18/2025 6:15 AM EST) Product Code Y9663L28 HCLL Unit Number [id number] HCLL Dispense Status Presumed Transfused_PT HCLL Blood Expiration Date HCLL Coding System NIMI103 HCLL Attending Provider Unknown BLOOD BANK PRODUCT OR DERABLES Final Result Performing Organization Address [facility] Co de Phone Number HCLL * Prepare Cryoprecipitate, 1 Units (10/18/2025 6:15 AM EST) Product Code R9453D24 HCLL Unit Number [id number] HCLL Dispense Status Presumed Transfused_PT HCLL Blood Expiration Date HCLL Coding System CPFY859 HCLL Blood Bank Product Oskar Torres MD BLOOD BANK PRODUCT ORDERABLES Final Result Performing Organization Address [facility] Co de Phone Number HCLL * Prepare Cryoprecipitate, 1 Units (10/18/2025 6:15 AM EST) Product Code J8488A23 HCLL Unit Number [id number] HCLL Dispense Status Presumed Transfused_PT HCLL Blood Expiration Date HCLL Coding System BOUM913 HCLL Product Code P7653H33 HCLL Unit Number [id number] HCLL Dispense Status Presumed Transfused_PT HCLL Blood Expiration Date HCLL Coding System LJFE593 HCLL Blood Bank Product Shannan Salas MD BLOOD BANK PRODUCT ORDERABLE S Final Result HCLL * Prepare Cryoprecipitate, 1 Units (10/18/2025 6:15 AM EST) Product Code S5672V64 HCLL Unit Number [id number] HCLL Dispense Status Presumed Transfused_PT HCLL Blood Expiration Date HCLL Coding System ENUT670 HCLL Blood Bank Product Slade Munoz MD BLOOD BANK PRODUCT ORDERABLES Fi nal Result Performing Organization Address [facility] Co de Phone Number HCLL * Prepare Cryoprecipitate, 1 Units (10/18/2025 6:15 AM EST) Product Code W2265E48 HCLL Unit Number [id number] HCLL Dispense Status Presumed Transfused_PT HCLL Blood Expiration Date HCLL Coding System IFGM272 HCLL Blood Bank Product Slade Munoz MD BLOOD BANK PRODUCT ORDERABLES Fi nal Result Performing Organization Address [facility] de Phone Number HCLL * Prepare RBC, leukoreduced (10/18/2025 6:15 AM EST) Product Code W0883B37 HCLL Unit Number [id number] HCLL Dispense Status Released from Crossmatch_RE HCLL Blood Expiration Date HCLL Coding System ZXIH258 HCLL Product Code D2834E59 HCLL Unit Number [id number] HCLL Dispense Status Released from Crossmatch_RE HCLL Blood Expiration Date HCLL Coding System RACS234 HCLL Product Code G3088Z55 HCLL Unit Number [id number] HCLL Dispense Status Released from Crossmatch_RE HCLL Blood Expiration Date HCLL Coding System VOGZ399 HCLL Product Code H4968B27 HCLL Unit Number [id number] HCLL Dispense Status Released from Crossmatch_RE HCLL Blood Expiration Date [id number] HCLL Coding System PZRM991 HCLL Product Code K3514B98 HCLL Unit Number [id number] HCLL Dispense Status Presumed Transfused_PT HCLL Blood Expiration Date HCLL Coding System HFFE042 HCLL Attending Provider Unknown BLOOD BANK PRODUCT OR DERABLES Final Result HCLL * Prepare Fresh Frozen Plasma, 5 Units (10/18/2025 6:15 AM EST) [facility] Product Code N9520O55 HCLL Unit Number [id number] HCLL Dispense Status Presumed Transfused_PT HCLL Blood Expiration Date HCLL Coding System QFFJ737 HCLL Product Code H3873I15 HCLL Unit Number [id number] HCLL Dispense Status Presumed Transfused_PT HCLL Blood Expiration Date HCLL Coding System CWIP474 HCLL Product Code Y1736B57 HCLL Unit Number [id number] HCLL Dispense Status Presumed Transfused_PT HCLL Blood Expiration Date HCLL Coding System YBAF545 HCLL Product Code V8079A08 HCLL Unit Number [id number] HCLL Dispense Status Presumed Transfused_PT HCLL Blood Expiration Date HCLL Coding System OZXP213 HCLL Product Code E8367W93 HCLL Unit Number [id number] HCLL Dispense Status Presumed Transfused_PT HCLL Blood Expiration Date HCLL Coding System RWRQ272 HCLL Blood Bank Product Kassi INTERIANO BLOOD BANK PRODUCT ORDERABLES Final Result HCLL * (ABNORMAL) POC Glucose Monitoring Device (10/18/2025 6:06 AM EST) POC Glucose Monitoring Device 214(H) 70 - 100 mg/dL 10/18/2025 6:06 AM EST [facility] Blood 10/18/2025 6:06 AM EST 10/18/2025 6:06 AM EST Vani Winkler MD POINT OF CARE TEST ORDERABLE S Final Result [facility] [address] [place] [id number] * (ABNORMAL) Blood gas, arterial (10/18/2025 5:19 AM EST) Pathologist [facility] O2 Sat, Arterial 97 10/18/2025 5:28 AM EST [facility] FIO2 40 10/18/2025 5:28 AM [facility] pH, Arterial 7.34(L) 7.35 - 7.45 10/18/2025 5:28 AM [facility] pCO2, Arterial 48(H) 35 - 45 mm Hg 10/18/2025 5:28 AM [facility] pO2, Arterial 84 80 - 100 mm Hg 10/18/2025 5:28 AM [facility] HCO3, Arterial 25 22 - 26 mmol/L 10/18/2025 5:28 AM [facility] CO2 Content,Arteri al 27 23 - 27 mmol/L 10/18/2025 5:28 AM [facility] Base Excess, Arterial -0.2 -2.0 - 3.0 mmol/L 10/18/2025 5:28 AM [facility] %HBO2, Arterial 94.1(L) 95.0 - 98.0 % 10/18/2025 5:28 AM [facility] Carboxyhemoglo bin, Arterial 2.5 % 10/18/2025 5:28 AM [facility] Comment: CARBOXYHEMOGLOBIN (CO) REFERENCE RANGES: Non-Smokers: <2 % Smokers: <8 % TOXIC: >20 % Methemoglobin, Arterial 0.5 0.0 - 1.5 % 10/18/2025 5:28 AM EST [facility] Blood, Arterial 10/18/2025 5 :19 AM EST 10/18/2025 5:25 AM EST us Vani Winkler MD LAB BLOOD ORDERABLES Final R esult Performing Organization Address City/[facility] Co de Phone Number [facility] [address] [facility] * Lactic Acid (10/18/2025 5:02 AM EST) Lactate 1.0 0.5 - 2.2 mmol/L 10/18/2025 5:47 AM EST [facility] Plasma 10/18/2025 5:02 AM EST 10/18/2025 5:09 AM EST us Aspen Parr MD LAB BLOOD ORDERABLES Final Resul t Performing Organization Address [facility] Co de Phone Number [facility] [address] [facility] * Magnesium (10/18/2025 5:02 AM EST) Magnesium 2.0 1.5 - 2.5 mg/dL 10/18/2025 6:05 AM EST [facility] Plasma 10/18/2025 5:02 AM EST 10/18/2025 5:13 AM EST Aspen Parr MD LAB BLOOD ORDERABLES Final Resul t Performing Organization Address [facility] Co de Phone Number [facility] [address] [facility] * (ABNORMAL) Hepatic Function Panel (10/18/2025 5:02 AM EST) Total Bilirubin 1.5 0.0 - 1.5 mg/dL 10/18/2025 6:05 AM EST [facility] Bilirubin, Direct 0.77(H) 0.00 - 0.40 mg/dL 10/18/2025 6:05 AM EST [facility] AST 2,612(H) 13 - 39 U/L 10/18/2025 6:05 AM EST [facility] ALT 1072(H) 7 - 52 U/L 10/18/2025 6:05 AM [facility] Alkaline Phosphatase 50 36 - 125 U/L 10/18/2025 6:05 AM [facility] Total Protein 4.0(L) 6.4 - 8.9 g/dL 10/18/2025 6:05 AM [facility] Albumin 2.2(L) 3.5 - 5.7 g/dL 10/18/2025 6:05 AM [facility] Bilirubin, Indirect 0.73 0.00 - 1.10 mg/dL 10/18/2025 6:05 AM [facility] Plasma 10/18/2025 5:02 AM EST 10/18/2025 5:13 AM EST us Aspen Parr MD LAB BLOOD ORDERABLES Final Resul t [facility] [address] * (ABNORMAL) Renal Function Panel w/EGFR (10/18/2025 5:02 AM EST) Sodium 146 133 - 146 mmol/L 10/18/2025 6:05 AM [facility] Potassium 3.4(L) 3.5 - 5.3 mmol/L 10/18/2025 6:05 AM [facility] Chloride 111(H) 98 - 110 mmol/L 10/18/2025 6:05 AM [facility] CO2 26 21 - 33 mmol/L 10/18/2025 6:05 AM [facility] Comment:High lactate dehydro genase concentrations in patient samples may cause falsely increased bicarbonate results. If markedly elevated LDH is observed or suspected, please assess results in conjunction with patient`s clinical presentation. In cases of discrepant results, consider evaluating CO2 in with a blood gas order. Anion Gap 9 3 - 16 mmol/L 10/18/2025 6:05 AM [facility] BUN 22 7 - 25 mg/dL 10/18/2025 6:05 AM [facility] Creatinine 0.93 0.60 - 1.30 mg/dL 10/18/2025 6:05 AM [facility] Glucose 193(H) 70 - 100 mg/dL 10/18/2025 6:05 AM EST [facility] Calcium 7.8(L) 8.6 - 10.3 mg/dL 10/18/2025 6:05 AM EST [facility] Phosphorus 3.0 2.1 - 4.7 mg/dL 10/18/2025 6:05 AM EST [facility] Albumin 2.2(L) 3.5 - 5.7 g/dL 10/18/2025 6:05 AM EST [facility] Osmolality, Calculated 311(H) 278 - 305 mOsm/kg 10/18/2025 6:05 AM EST [facility] EGFR >90 10/18/2025 6:05 AM EST [facility] Comment: As of 2022, [...] MD LAB BLOOD ORDERABLES Final Resul t [facility] [address] [place] [address], [facility] * (ABNORMAL) Protime-INR (10/18/2025 5:02 AM EST) Protime 26.0(H) 12.1 - 15.1 seconds 10/18/2025 5:32 AM EST [facility] INR 2.2(H) 0.9 - 1.1 10/18/2025 5:32 AM EST [facility] Comment: RECOMMENDED THERAPEUTIC RANGES USING INR : Stable oral anticoagulant therapy: 2.0 - 3.0 Mechanical prosthetic heart valve: 2.5 - 3.5 Recurrent acute myocardial infarction: 2.5 - 3.5 Plasma 10/18/2025 5:02 AM EST 10/18/2025 5:13 AM EST us Aspen Parr MD LAB BLOOD ORDERABLES Final Resul t [facility] [address] [place] [address], [facility] * (ABNORMAL) CBC (10/18/2025 5:02 AM EST) Pathologist [facility] WBC 7.0 3.8 - 10.8 10E3/uL 10/18/2025 5:27 AM EST [facility] RBC 2.94(L) 4.20 - 5.80 10E6/uL 10/18/2025 5:27 AM [facility] Hemoglobin 9.6(L) 13.2 - 17.1 g/dL 10/18/2025 5:27 AM [facility] Hematocrit 27.6(L) 38.5 - 50.0 % 10/18/2025 5:27 AM [facility] MCV 94.0 80.0 - 100.0 fL 10/18/2025 5:27 AM [facility] MCH 32.6 27.0 - 33.0 pg 10/18/2025 5:27 AM [facility] MCHC 34.7 32.0 - 36.0 g/dL 10/18/2025 5:27 AM [facility] RDW 19.0(H) 11.0 - 15.0 % 10/18/2025 5:27 AM [facility] Platelets 36(L) 140 - 400 10E3/uL 10/18/2025 5:27 AM [facility] Comment:CNV MPV 8.1 7.5 - 11.5 fL 10/18/2025 5:27 AM EST [facility] Whole Blood 10/18/2025 5:02 AM EST 10/18/2025 5:13 AM EST us Aspen Parr MD LAB BLOOD ORDERABLES Final Resul t [facility] [address] [facility] * (ABNORMAL) POC Glucose Monitoring Device (10/18/2025 5:00 AM EST) POC Glucose Monitoring Device 231(H) 70 - 100 mg/dL 10/18/2025 5:06 AM EST [facility] Blood 10/18/2025 5:00 AM EST 10/18/2025 5:06 AM EST us Vani Winkler MD POINT OF CARE TEST ORDERABLE S Final Result [facility] [address] [facility] * (ABNORMAL) POC Glucose Monitoring Device (10/18/2025 4:05 AM EST) POC Glucose Monitoring Device 244(H) 70 - 100 mg/dL 10/18/2025 4:06 AM EST [facility] Blood 10/18/2025 4:05 AM EST 10/18/2025 4:06 AM EST us Vani Winkler MD POINT OF CARE TEST ORDERABLE S Final Result [facility] [address] [facility] * (ABNORMAL) POC Glucose Monitoring Device (10/18/2025 3:02 AM EST) POC Glucose Monitoring Device 246(H) 70 - 100 mg/dL 10/18/2025 3:07 AM EST [facility] Blood 10/18/2025 3:02 AM EST 10/18/2025 3:07 AM EST Vani Winkler MD POINT OF CARE TEST ORDERABLE S Final Result Performing Organization Address [facility] Co de Phone Number [facility] [address] [facility] * (ABNORMAL) POC Glucose Monitoring Device (10/18/2025 2:05 AM EST) POC Glucose Monitoring Device 249(H) 70 - 100 mg/dL 10/18/2025 2:14 AM EST [facility] Blood 10/18/2025 2:05 AM EST 10/18/2025 2:14 AM EST Vani Winkler MD POINT OF CARE TEST ORDERABLE S Final Result Performing Organization Address [facility] Co de Phone Number [facility] [address] [facility] * (ABNORMAL) POC Glucose Monitoring Device (10/18/2025 1:06 AM EST) POC Glucose Monitoring Device 237(H) 70 - 100 mg/dL 10/18/2025 1:07 AM EST [facility] Blood 10/18/2025 1:06 AM EST 10/18/2025 1:07 AM EST Vani Winkler MD POINT OF CARE TEST ORDERABLE S Final Result Performing Organization Address City/[facility] Co de Phone Number [facility] [address] [facility] * (ABNORMAL) POC Glucose Monitoring Device (10/17/2025 11:55 PM EST) POC Glucose Monitoring Device 227(H) 70 - 100 mg/dL 10/18/2025 12:06 AM EST [facility] Blood 10/17/2025 11:5 5 PM EST 10/18/2025 12:06 AM EST us Vani Winkler MD POINT OF CARE TEST ORDERABLE S Final Result [facility] [address] [place] [address], [facility] * XR Portable Feeding Tube Check (10/17/2025 [...] Kebede DO at 10/17/2025 11:50 PM EST Aspen Parr MD IMG DIAGNOSTIC IMAGING ORDERABLE S Final Result * Calcium Free, Serum (10/17/2025 10:50 PM EST) Free Calcium, Ser 4.76 4.40 - 5.40 mg/dL 10/17/2025 11:15 PM EST [facility] Comment:Free calcium levels vary inversely with pH by approximately 5% for each 0.1 unit of pH change. Assay results have been normalized to pH = 7.40. Serum 10/17/2025 10:5 0 PM EST 10/17/2025 10:55 PM EST Narrative [facility] - 10/17/2025 11:15 PM EST This test has been developed and its performance characteristics determined by [facility] which is certified under the [...] El MD LAB BLOOD ORDERABLES Final Result [facility] [address] * (ABNORMAL) TEG-Standard Global Hemostasis (Rapid TEG with Heparin Effect, Contains a Baseline TEG) (10/17/2025 10:50 PM EST) [facility] Citrated Kaolin Reaction Time (TEGHEPARINASE) 12.7(H) 4.6 - 9.1 minutes 10/18/2025 12:03 AM EST [facility] Citrated Rapid Teg Maximum Amplitude (TEGHEPARINASE) 47.8(L) 52.0 - 70.0 mm 10/18/2025 12:03 AM EST [facility] Citrated Functional Fibrinogen Maximum Amplitude (TEGHEPARINASE) 16.8 15.0 - 32.0 mm 10/18/2025 12:03 AM EST [facility] Citrated Kaolin W/Heparinase Reaction Time (TEGHEPARINASE) 11.0(H) 4.3 - 8.3 minutes 10/18/2025 12:03 AM EST [facility] Citrated Kaolin K-Time (TEGHEPARINASE) 4.9(H) 0.8 - 2.1 minutes 10/18/2025 12:03 AM EST [facility] Citrated Kaolin Angle (TEGHEPARINASE) 40.0(L) 63.0 - 78.0 degrees 10/18/2025 12:03 AM EST [facility] Citrated Kaolin Maximum Amplitude (TEGHEPARINASE) 45.2(L) 52.0 - 69.0 mm 10/18/2025 12:03 AM EST [facility] Citrated Functional Fibrinogen- Fibrinogen Level (TEGHEPARINASE) 306.6 278.0 - 581.0 mg/dL 10/18/2025 12:03 AM EST [facility] Whole Blood (Citrate) 10/17/2025 10:50 PM EST 10/17/2025 10:55 PM EST us Aspen Parr MD LAB BLOOD ORDERABLES Final Resul t [facility] [address] * Lactic Acid (10/17/2025 10:50 PM EST) Lactate 1.1 0.5 - 2.2 mmol/L 10/17/2025 11:51 PM EST [facility] Plasma 10/17/2025 10:5 0 PM EST 10/17/2025 10:55 PM EST Aspen Parr MD LAB BLOOD ORDERABLES Final Resul t Performing Organization Address City/[facility] Co de Phone Number [facility] [address] [facility] * Fibrinogen (10/17/2025 10:50 PM EST) Fibrinogen 253 218 - 406 mg/dL 10/17/2025 11:06 PM EST [facility] Plasma 10/17/2025 10:5 0 PM EST 10/17/2025 10:55 PM EST us Aspen Parr MD LAB BLOOD ORDERABLES Final Resul t Performing Organization Address [facility]/[place] [facility] de Phone Number [facility] [address] [facility]. [address] * (ABNORMAL) Protime-INR (10/17/2025 10:50 PM EST) Protime 25.2(H) 12.1 - 15.1 seconds 10/17/2025 11:06 PM EST [facility] INR 2.1(H) 0.9 - 1.1 10/17/2025 11:06 PM EST [facility] Comment: RECOMMENDED THERAPEUTIC RANGES USING INR : Stable oral anticoagulant therapy: 2.0 - 3.0 Mechanical prosthetic heart valve: 2.5 - 3.5 Recurrent acute myocardial infarction: 2.5 - 3.5 Plasma 10/17/2025 10:5 0 PM EST 10/17/2025 10:55 PM EST Aspen Parr MD LAB BLOOD ORDERABLES Final Resul t Performing Organization Address City/[facility] Co de Phone Number [facility] [address] [facility]. [address] * (ABNORMAL) Blood gas, arterial (10/17/2025 10:50 PM EST) O2 Sat, Arterial 100 10/17/2025 11:00 PM EST [facility] FIO2 80 fio2 10/17/2025 11:00 PM EST [facility] pH, Arterial 7.38 7.35 - 7.45 10/17/2025 11:00 PM EST [facility] pCO2, Arterial 41 35 - 45 mm Hg 10/17/2025 11:00 PM EST [facility] pO2, Arterial 216(H) 80 - 100 mm Hg 10/17/2025 11:00 PM EST [facility] HCO3, Arterial 24 22 - 26 mmol/L 10/17/2025 11:00 PM EST [facility] CO2 Content,Arteri al 26 23 - 27 mmol/L 10/17/2025 11:00 PM EST [facility] Base Excess, Arterial -0.8 -2.0 - 3.0 mmol/L 10/17/2025 11:00 PM EST [facility] %HBO2, Arterial 95.2 95.0 - 98.0 % 10/17/2025 11:00 PM EST [facility] Carboxyhemoglo bin, Arterial 3.3 % 10/17/2025 11:00 PM EST [facility] Comment: CARBOXYHEMOGLOBIN (CO) REFERENCE RANGES: Non-Smokers: <2 % Smokers: <8 % TOXIC: >20 % Methemoglobin, Arterial 1.6(H) 0.0 - 1.5 % 10/17/2025 11:00 PM EST [facility] Blood, Arterial 10/17/2025 1 0:50 PM EST 10/17/2025 10:55 PM EST us Aspen Parr MD LAB BLOOD ORDERABLES Final Resul t [facility] [address] * Magnesium (10/17/2025 10:50 PM EST) Magnesium 1.8 1.5 - 2.5 mg/dL 10/18/2025 12:13 AM EST [facility] Plasma 10/17/2025 10:5 0 PM EST 10/17/2025 10:55 PM EST Aspen Parr MD LAB BLOOD ORDERABLES Final Resul t Performing Organization Address [facility] de Phone Number [facility] [address] [facility] * (ABNORMAL) Hepatic Function Panel (10/17/2025 10:50 PM EST) Total Bilirubin 4.5(H) 0.0 - 1.5 mg/dL 10/18/2025 12:13 AM EST [facility] Bilirubin, Direct 3.22(H) 0.00 - 0.40 mg/dL 10/18/2025 12:13 AM EST [facility] AST 3,332(H) 13 - 39 U/L 10/18/2025 12:13 AM EST [facility] ALT 1141(H) 7 - 52 U/L 10/18/2025 12:13 AM EST [facility] Alkaline Phosphatase 63 36 - 125 U/L 10/18/2025 12:13 AM EST [facility] Total Protein 4.0(L) 6.4 - 8.9 g/dL 10/18/2025 12:13 AM EST [facility] Albumin 2.2(L) 3.5 - 5.7 g/dL 10/18/2025 12:13 AM EST [facility] Bilirubin, Indirect 1.28(H) 0.00 - 1.10 mg/dL 10/18/2025 12:13 AM EST [facility] Plasma 10/17/2025 10:5 0 PM EST 10/17/2025 10:55 PM EST Aspen Parr MD LAB BLOOD ORDERABLES Final Resul t Performing Organization Address [facility] Co de Phone Number [facility] [address] * (ABNORMAL) Renal Function Panel w/EGFR (10/17/2025 10:50 PM EST) Sodium 145 133 - 146 mmol/L 10/18/2025 12:13 AM [facility] Potassium 3.7 3.5 - 5.3 mmol/L 10/18/2025 12:13 AM [facility] Chloride 110 98 - 110 mmol/L 10/18/2025 12:13 AM [facility] CO2 27 21 - 33 mmol/L 10/18/2025 12:13 AM [facility] Comment:High lactate dehydro genase concentrations in patient samples may cause falsely increased bicarbonate results. If markedly elevated LDH is observed or suspected, please assess results in conjunction with patient`s clinical presentation. In cases of discrepant results, consider evaluating CO2 in with a blood gas order. Anion Gap 8 3 - 16 mmol/L 10/18/2025 12:13 AM [facility] BUN 17 7 - 25 mg/dL 10/18/2025 12:13 AM [facility] Creatinine 0.79 0.60 - 1.30 mg/dL 10/18/2025 12:13 AM [facility] Glucose 225(H) 70 - 100 mg/dL 10/18/2025 12:13 AM [facility] Calcium 8.2(L) 8.6 - 10.3 mg/dL 10/18/2025 12:13 AM [facility] Phosphorus 3.9 2.1 - 4.7 mg/dL 10/18/2025 12:13 AM [facility] Albumin 2.2(L) 3.5 - 5.7 g/dL 10/18/2025 12:13 AM [facility] Osmolality, Calculated 309(H) 278 - 305 mOsm/kg 10/18/2025 12:13 AM [facility] EGFR >90 10/18/2025 12:13 AM [facility] Comment: As of 2022, the [...] >90mL/min/1.73m2. Reference: Sachin C, Kathy M, Rebecca RAVI, Josue ND, Dee Dee [place], Nazia [place], [...] MD LAB BLOOD ORDERABLES Final Resul t [facility] [address] [place] [address], [facility] * (ABNORMAL) CBC (10/17/2025 10:50 PM EST) WBC 5.8 3.8 - 10.8 10E3/uL 10/17/2025 11:03 PM EST [facility] RBC 2.93(L) 4.20 - 5.80 10E6/uL 10/17/2025 11:03 PM EST [facility] Hemoglobin 9.5(L) 13.2 - 17.1 g/dL 10/17/2025 11:03 PM EST [facility] Hematocrit 27.5(L) 38.5 - 50.0 % 10/17/2025 11:03 PM EST [facility] MCV 93.9 80.0 - 100.0 fL 10/17/2025 11:03 PM EST [facility] MCH 32.6 27.0 - 33.0 pg 10/17/2025 11:03 PM EST [facility] MCHC 34.7 32.0 - 36.0 g/dL 10/17/2025 11:03 PM EST [facility] RDW 18.1(H) 11.0 - 15.0 % 10/17/2025 11:03 PM EST [facility] Platelets 52(L) 140 - 400 10E3/uL 10/17/2025 11:03 PM EST [facility] MPV 7.1(L) 7.5 - 11.5 fL 10/17/2025 11:03 PM EST [facility] Whole Blood 10/17/2025 10:5 0 PM EST 10/17/2025 10:55 PM EST us Aspen Parr MD LAB BLOOD ORDERABLES Final Resul t [facility] [address] [facility] * (ABNORMAL) POC Glucose Monitoring Device (10/17/2025 10:47 PM EST) POC Glucose Monitoring Device 234(H) 70 - 100 mg/dL 10/17/2025 10:48 PM EST [facility] Blood 10/17/2025 10:4 7 PM EST 10/17/2025 10:47 PM EST us Vani Winkler MD POINT OF CARE TEST ORDERABLE S Final Result Performing Organization Address City/[facility]/ZIP Co de Phone Number [facility] [address] [facility]. [address] * POC Sample Type (10/17/2025 9:25 PM EST) Pathologist [facility] POC Sample Type Arterial 10/17/2025 9:51 PM EST [facility] Blood, Arterial 10/17/2025 9 :25 PM EST 10/17/2025 9:51 PM EST us Vani Winkler MD POINT OF CARE TEST ORDERABLE S Final Result [facility] [address] [facility]. [address] * POC Anion Gap (10/17/2025 9:25 PM EST) POC Anion Gap, Arterial 9 3 - 16 mmol/L 10/17/2025 9:51 PM EST [facility] Blood, Arterial 10/17/2025 9 :25 PM EST 10/17/2025 9:51 PM EST Vani Winkler MD POINT OF CARE TEST ORDERABLE S Final Result Performing Organization Address [facility] Co de Phone Number [facility] [address] [place] [address]. [address] * (ABNORMAL) POC Chloride (10/17/2025 9:25 PM EST) POC Chloride 111(H) 98 - 110 mmol/L 10/17/2025 9:51 PM EST [facility] Blood, Arterial 10/17/2025 9 :25 PM EST 10/17/2025 9:51 PM EST Vani Winkler MD POINT OF CARE TEST ORDERABLE S Final Result Performing Organization Address [facility] Co de Phone Number [facility] [address] [facility] * (ABNORMAL) POC Hemoglobin (10/17/2025 9:25 PM EST) POC Hemoglobin 9.0(L) 14.0 - 18.0 g/dL 10/17/2025 9:51 PM EST [facility] Blood, Arterial 10/17/2025 9 :25 PM EST 10/17/2025 9:51 PM EST Vani Winkler MD POINT OF CARE TEST ORDERABLE S Final Result Performing Organization Address City/[facility] Co de Phone Number [facility] [address] [facility] * (ABNORMAL) POC hematocrit (10/17/2025 9:25 PM EST) POC Hematocrit 26.0(L) 40 - 52 % 10/17/2025 9:51 PM EST [facility] Blood, Arterial 10/17/2025 9 :25 PM EST 10/17/2025 9:51 PM EST Vani Winkler MD POINT OF CARE TEST ORDERABLE S Final Result [facility] [address] [facility]. [address] * POC Lactate (10/17/2025 9:25 PM EST) POC Lactate 1.50 0.50 - 2.20 mmol/L 10/17/2025 9:51 PM EST [facility] Blood, Arterial 10/17/2025 9 :25 PM EST 10/17/2025 9:51 PM EST us Vani Winkler MD POINT OF CARE TEST ORDERABLE S Final Result Performing Organization Address [facility] Co de Phone Number [facility] [address] [facility] * (ABNORMAL) POC Glucose (10/17/2025 9:25 PM EST) POC Glucose, Arterial 227(H) 70 - 100 mg/dL 10/17/2025 9:51 PM EST [facility] Blood, Arterial 10/17/2025 9 :25 PM EST 10/17/2025 9:51 PM EST us Vani Winkler MD POINT OF CARE TEST ORDERABLE S Final Result Performing Organization Address City/[facility]/ZIP Co de Phone Number [facility] [address] * POC Ionized Calcium (10/17/2025 9:25 PM EST) POC Ionized Calcium 4.90 4.50 - 5.30 mg/dL 10/17/2025 9:51 PM EST [facility] Blood, Arterial 10/17/2025 9 :25 PM EST 10/17/2025 9:51 PM EST us Vani Winkler MD POINT OF CARE TEST ORDERABLE S Final Result [facility] [address] * POC Potassium (10/17/2025 9:25 PM EST) POC Potassium 3.7 3.5 - 5.3 mmol/L 10/17/2025 9:51 PM EST [facility] Blood, Arterial 10/17/2025 9 :25 PM EST 10/17/2025 9:51 PM EST Vani Winkler MD POINT OF CARE TEST ORDERABLE S Final Result [facility] [address] * POC Sodium (10/17/2025 9:25 PM EST) POC Sodium 142 136 - 146 mmol/L 10/17/2025 9:51 PM EST [facility] Blood, Arterial 10/17/2025 9 :25 PM EST 10/17/2025 9:51 PM EST Vani Winkler MD POINT OF CARE TEST ORDERABLE S Final Result [facility] [address] [facility]. [address] * POC TCO2 (10/17/2025 9:25 PM EST) POC TCO2, Arterial 23 23 - 27 mmol/L 10/17/2025 9:51 PM EST [facility] Blood, Arterial 10/17/2025 9 :25 PM EST 10/17/2025 9:51 PM EST Vani Winkler MD POINT OF CARE TEST ORDERABLE S Final Result [facility] [address] [facility]. [address] * (ABNORMAL) POC O2 SAT (10/17/2025 9:25 PM EST) POC O2 Saturation, Arterial 99(H) 95 - 98 % 10/17/2025 9:51 PM EST [facility] Blood, Arterial 10/17/2025 9 :25 PM EST 10/17/2025 9:51 PM EST us Vani Winkler MD POINT OF CARE TEST ORDERABLE S Final Result [facility] [address] [place] [address]. [address] * (ABNORMAL) POC Base Excess (10/17/2025 9:25 PM EST) POC Base Excess, Arterial -3(L) -2 - 3 mmol/L 10/17/2025 9:51 PM EST [facility] Blood, Arterial 10/17/2025 9 :25 PM EST 10/17/2025 9:51 PM EST us Vani Winkler MD POINT OF CARE TEST ORDERABLE S Final Result Performing Organization Address City/[facility]/ZIP Co de Phone Number [facility] [address] [place] [address]. [address] * POC HCO3 (10/17/2025 9:25 PM EST) POC HCO3, Arterial 22 22 - 26 mmol/L 10/17/2025 9:51 PM EST [facility] Blood, Arterial 10/17/2025 9 :25 PM EST 10/17/2025 9:51 PM EST us Vani Winkler MD POINT OF CARE TEST ORDERABLE S Final Result [facility] [address] [place] [address]. [address] * (ABNORMAL) POC PO2 (10/17/2025 9:25 PM EST) POC pO2, Arterial 161(H) 80 - 100 mm Hg 10/17/2025 9:51 PM EST [facility] Blood, Arterial 10/17/2025 9 :25 PM EST 10/17/2025 9:51 PM EST Vani Winkler MD POINT OF CARE TEST ORDERABLE S Final Result Performing Organization Address City/[facility]/ZIP Co de Phone Number [facility] [address] * POC PCO2 (10/17/2025 9:25 PM EST) POC pCO2, Arterial 38 35 - 45 mm Hg 10/17/2025 9:51 PM EST [facility] Blood, Arterial 10/17/2025 9 :25 PM EST 10/17/2025 9:51 PM EST Vani Winkler MD POINT OF CARE TEST ORDERABLE S Final Result Performing Organization Address City/[facility]/ZIP Co de Phone Number [facility] [address] * POC pH (10/17/2025 9:25 PM EST) POC pH, Arterial 7.37 7.35 - 7.45 10/17/2025 9:51 PM EST [facility] Blood, Arterial 10/17/2025 9 :25 PM EST 10/17/2025 9:51 PM EST Vani Winkler MD POINT OF CARE TEST ORDERABLE S Final Result Performing Organization Address City/[facility] Co de Phone Number [facility] [address] [facility] * (ABNORMAL) POC INR (10/17/2025 9:24 PM EST) Prothrombin Time INR, POC 2.3(H) 0.8 - 1.4 10/18/2025 12:08 AM EST [facility] Comment: Test results may [...] OF CARE TEST ORDERABLE S Final Result [facility] [address] [place] [address], [facility] * Transfuse Fresh Frozen Plasma (10/17/2025 9:17 PM EST) Shannan Salas MD NURSING TREATMENT ORDERABLES - BLOOD ADMIN Final Result * [employer]use Platelets (10/17/2025 9:01 PM EST) us Slade Munoz MD NURSING TREATMENT ORDERABLES - B LOOD ADMIN Final Result * Transfuse Cryoprecipitate (10/17/2025 8:49 PM EST) us Slade Munoz MD NURSING TREATMENT ORDERABLES - B LOOD ADMIN Final Result * Transfuse Cryoprecipitate (10/17/2025 8:46 PM EST) us Slade Munoz MD NURSING TREATMENT ORDERABLES - B LOOD ADMIN Final Result * (ABNORMAL) TEG-Bypass/ECMO/Liver HN (Factor function, Platelet/Fibrin Clot Strength w/Clot Breakdown, Heparinase In All Channels) (10/17/2025 8:31 PM EST) [facility] Citrated Kaolin Reaction Time (TEGECMOLIVER) 9.7(H) 4.6 - 9.1 minutes 10/17/2025 10:13 PM EST [facility] Citrated Kaolin W/Heparinase Reaction Time (TEGECMOLIVER) 3.4(L) 4.3 - 8.3 minutes 10/17/2025 10:13 PM EST [facility] Citrated Kaolin Maximum Amplitude (TEGECMOLIVER) 45.4(L) 52.0 - 69.0 mm 10/17/2025 10:13 PM EST [facility] Citrated Functional Fibrinogen W/Heparinase Maximum Amplitude(TEGEC MOLIVER) 18.0 15.0 - 34.0 mm 10/17/2025 10:13 PM EST [facility] Citrated Rapid Teg W/Heparinase Maximum Amplitude (TEGECMOLIVER) 40.5(L) 53.0 - 69.0 mm 10/17/2025 10:13 PM EST [facility] Citrated Kaolin w/Heparinase Percent Lysis (TEGECMOLIVER) 0.0 0.0 - 3.2 % 10/17/2025 10:13 PM EST [facility] Whole Blood (Citrate) 10/17/2025 8:31 PM EST 10/17/2025 8:40 PM EST Oskar Torres MD LAB BLOOD ORDERABLES Final Re sult Performing Organization Address [facility] de Phone Number [facility] [address] [facility]. [address] * (ABNORMAL) Fibrinogen (10/17/2025 8:31 PM EST) Fibrinogen 157(L) 218 - 406 mg/dL 10/17/2025 9:00 PM EST [facility] Plasma 10/17/2025 8:31 PM EST 10/17/2025 8:40 PM EST Oskar Torres MD LAB BLOOD ORDERABLES Final Re sult Performing Organization Address [facility] Co de Phone Number [facility] [address] [facility] * POC Sample Type (10/17/2025 8:22 PM EST) POC Sample Type Arterial 10/17/2025 8:24 PM EST [facility] Blood, Arterial 10/17/2025 8 :22 PM EST 10/17/2025 8:24 PM EST Vani Winkler MD POINT OF CARE TEST ORDERABLE S Final Result Performing Organization Address [facility] Co de Phone Number [facility] [address] * POC Anion Gap (10/17/2025 8:22 PM EST) POC Anion Gap, Arterial 11 3 - 16 mmol/L 10/17/2025 8:24 PM EST [facility] Blood, Arterial 10/17/2025 8 :22 PM EST 10/17/2025 8:24 PM EST Vani Winkler MD POINT OF CARE TEST ORDERABLE S Final Result Performing Organization Address City/[facility]/ZIP Co de Phone Number [facility] [address] * POC Chloride (10/17/2025 8:22 PM EST) POC Chloride 108 98 - 110 mmol/L 10/17/2025 8:24 PM EST [facility] Blood, Arterial 10/17/2025 8 :22 PM EST 10/17/2025 8:24 PM EST Vani Winkler MD POINT OF CARE TEST ORDERABLE S Final Result Performing Organization Address [facility] Co de Phone Number [facility] [address] * (ABNORMAL) POC Hemoglobin (10/17/2025 8:22 PM EST) POC Hemoglobin 9.5(L) 14.0 - 18.0 g/dL 10/17/2025 8:24 PM EST [facility] Blood, Arterial 10/17/2025 8 :22 PM EST 10/17/2025 8:24 PM EST Vani Winkler MD POINT OF CARE TEST ORDERABLE S Final Result [facility] [address] * (ABNORMAL) POC hematocrit (10/17/2025 8:22 PM EST) Pathologist [facility] POC Hematocrit 28.0(L) 40 - 52 % 10/17/2025 8:24 PM EST [facility] Blood, Arterial 10/17/2025 8 :22 PM EST 10/17/2025 8:24 PM EST Vani Winkler MD POINT OF CARE TEST ORDERABLE S Final Result [facility] [address] [facility] * POC Lactate (10/17/2025 8:22 PM EST) [facility] POC Lactate 1.62 0.50 - 2.20 mmol/L 10/17/2025 8:24 PM EST [facility] Blood, Arterial 10/17/2025 8 :22 PM EST 10/17/2025 8:24 PM EST Vani Winkler MD POINT OF CARE TEST ORDERABLE S Final Result Performing Organization Address City/[facility] Co de Phone Number [facility] [address] [place] [address]. [address] * (ABNORMAL) POC Glucose (10/17/2025 8:22 PM EST) Pathologist [facility] POC Glucose, Arterial 218(H) 70 - 100 mg/dL 10/17/2025 8:24 PM EST [facility] Blood, Arterial 10/17/2025 8 :22 PM EST 10/17/2025 8:24 PM EST Vani Winkler MD POINT OF CARE TEST ORDERABLE S Final Result Performing Organization Address City/[facility] Co de Phone Number [facility] [address] [facility] * POC Ionized Calcium (10/17/2025 8:22 PM EST) Pathologist [facility] POC Ionized Calcium 4.80 4.50 - 5.30 mg/dL 10/17/2025 8:24 PM EST [facility] Blood, Arterial 10/17/2025 8 :22 PM EST 10/17/2025 8:24 PM EST Vani Winkler MD POINT OF CARE TEST ORDERABLE S Final Result [facility] [address] [facility]. [address] * POC Potassium (10/17/2025 8:22 PM EST) POC Potassium 3.8 3.5 - 5.3 mmol/L 10/17/2025 8:24 PM EST [facility] Blood, Arterial 10/17/2025 8 :22 PM EST 10/17/2025 8:24 PM EST Vani Winkler MD POINT OF CARE TEST ORDERABLE S Final Result Performing Organization Address City/[facility]/ZIP Co de Phone Number [facility] [address] [facility]. [address] * POC Sodium (10/17/2025 8:22 PM EST) POC Sodium 143 136 - 146 mmol/L 10/17/2025 8:24 PM EST [facility] Blood, Arterial 10/17/2025 8 :22 PM EST 10/17/2025 8:24 PM EST Vani Winkler MD POINT OF CARE TEST ORDERABLE S Final Result [facility] [address] [facility]. [address] * POC TCO2 (10/17/2025 8:22 PM EST) POC TCO2, Arterial 25 23 - 27 mmol/L 10/17/2025 8:24 PM EST [facility] Blood, Arterial 10/17/2025 8 :22 PM EST 10/17/2025 8:24 PM EST Vani Winkler MD POINT OF CARE TEST ORDERABLE S Final Result [facility] [address] [facility] [address] * (ABNORMAL) POC O2 SAT (10/17/2025 8:22 PM EST) POC O2 Saturation, Arterial 99(H) 95 - 98 % 10/17/2025 8:24 PM EST [facility] Blood, Arterial 10/17/2025 8 :22 PM EST 10/17/2025 8:24 PM EST Vani Winkler MD POINT OF CARE TEST ORDERABLE S Final Result Performing Organization Address City/[facility] Co de Phone Number [facility] [address] [facility] * POC Base Excess (10/17/2025 8:22 PM EST) POC Base Excess, Arterial -1 -2 - 3 mmol/L 10/17/2025 8:24 PM EST [facility] Blood, Arterial 10/17/2025 8 :22 PM EST 10/17/2025 8:24 PM EST Vani Winkler MD POINT OF CARE TEST ORDERABLE S Final Result [facility] [address] [facility]. [address] * POC HCO3 (10/17/2025 8:22 PM EST) POC HCO3, Arterial 24 22 - 26 mmol/L 10/17/2025 8:24 PM EST [facility] Blood, Arterial 10/17/2025 8 :22 PM EST 10/17/2025 8:24 PM EST Vani Winkler MD POINT OF CARE TEST ORDERABLE S Final Result [facility] [address] * (ABNORMAL) POC PO2 (10/17/2025 8:22 PM EST) POC pO2, Arterial 131(H) 80 - 100 mm Hg 10/17/2025 8:24 PM EST [facility] Blood, Arterial 10/17/2025 8 :22 PM EST 10/17/2025 8:24 PM EST us Vani Winkler MD POINT OF CARE TEST ORDERABLE S Final Result Performing Organization Address City/[facility]/ZIP Co de Phone Number [facility] [address] * POC PCO2 (10/17/2025 8:22 PM EST) POC pCO2, Arterial 41 35 - 45 mm Hg 10/17/2025 8:24 PM EST [facility] Blood, Arterial 10/17/2025 8 :22 PM EST 10/17/2025 8:24 PM EST Vani Winkler MD POINT OF CARE TEST ORDERABLE S Final Result Performing Organization Address City/[facility]/ZIP Co de Phone Number [facility] [address] * POC pH (10/17/2025 8:22 PM EST) POC pH, Arterial 7.37 7.35 - 7.45 10/17/2025 8:24 PM EST [facility] Blood, Arterial 10/17/2025 8 :22 PM EST 10/17/2025 8:24 PM EST Vani Winkler MD POINT OF CARE TEST ORDERABLE S Final Result [facility] [address] [facility] [address] * (ABNORMAL) POC INR (10/17/2025 8:21 PM EST) Prothrombin Time INR, POC 2.9(H) 0.8 - 1.4 10/18/2025 12:08 AM EST [facility] Comment: Test results may [...] OF CARE TEST ORDERABLE S Final Result [facility] [address] [facility]. [address] * Transfuse Fresh Frozen Plasma (10/17/2025 8:05 PM EST) us Shannan Salas MD NURSING [...] Sample Type Arterial 10/17/2025 7:30 PM EST [facility] Blood, Arterial 10/17/2025 7 :26 PM EST 10/17/2025 7:30 PM EST Vani Winkler MD POINT OF CARE TEST ORDERABLE S Final Result [facility] [address] [facility]. [address] * POC Anion Gap (10/17/2025 7:26 PM EST) POC Anion Gap, Arterial 11 3 - 16 mmol/L 10/17/2025 7:30 PM EST [facility] Blood, Arterial 10/17/2025 7 :26 PM EST 10/17/2025 7:30 PM EST Vani Winkler MD POINT OF CARE TEST ORDERABLE S Final Result Performing Organization Address [facility] Co de Phone Number [facility] [address] [facility]. [address] * POC Chloride (10/17/2025 7:26 PM EST) POC Chloride 109 98 - 110 mmol/L 10/17/2025 7:30 PM EST [facility] Blood, Arterial 10/17/2025 7 :26 PM EST 10/17/2025 7:30 PM EST Vani Winkler MD POINT OF CARE TEST ORDERABLE S Final Result Performing Organization Address City/[facility]/ZIP Co de Phone Number [facility] [address] * (ABNORMAL) POC Hemoglobin (10/17/2025 7:26 PM EST) POC Hemoglobin 8.6(L) 14.0 - 18.0 g/dL 10/17/2025 7:30 PM EST [facility] Blood, Arterial 10/17/2025 7 :26 PM EST 10/17/2025 7:30 PM EST Vnai Winkler MD POINT OF CARE TEST ORDERABLE S Final Result [facility] [address] * (ABNORMAL) POC hematocrit (10/17/2025 7:26 PM EST) POC Hematocrit 25.0(L) 40 - 52 % 10/17/2025 7:30 PM EST [facility] Blood, Arterial 10/17/2025 7 :26 PM EST 10/17/2025 7:30 PM EST Vani Winkler MD POINT OF CARE TEST ORDERABLE S Final Result Performing Organization Address City/[facility]/ZIP Co de Phone Number [facility] [address] [facility]. [address] * POC Lactate (10/17/2025 7:26 PM EST) POC Lactate 2.16 0.50 - 2.20 mmol/L 10/17/2025 7:30 PM EST [facility] Blood, Arterial 10/17/2025 7 :26 PM EST 10/17/2025 7:30 PM EST Vani Winkler MD POINT OF CARE TEST ORDERABLE S Final Result Performing Organization Address [facility]/ZIP Co de Phone Number [facility] [address] [facility]. [address] * (ABNORMAL) POC Glucose (10/17/2025 7:26 PM EST) POC Glucose, Arterial 207(H) 70 - 100 mg/dL 10/17/2025 7:30 PM EST [facility] Blood, Arterial 10/17/2025 7 :26 PM EST 10/17/2025 7:30 PM EST Vani Winkler MD POINT OF CARE TEST ORDERABLE S Final Result Performing Organization Address City/[facility]/ZIP Co de Phone Number [facility] [address] [facility]. [address] * (ABNORMAL) POC Ionized Calcium (10/17/2025 7:26 PM EST) POC Ionized Calcium 5.40(H) 4.50 - 5.30 mg/dL 10/17/2025 7:30 PM EST [facility] Blood, Arterial 10/17/2025 7 :26 PM EST 10/17/2025 7:30 PM EST Vani Winkler MD POINT OF CARE TEST ORDERABLE S Final Result [facility] [address] [place] [address]. [address] * POC Potassium (10/17/2025 7:26 PM EST) Pathologist [facility] POC Potassium 3.9 3.5 - 5.3 mmol/L 10/17/2025 7:30 PM EST [facility] Blood, Arterial 10/17/2025 7 :26 PM EST 10/17/2025 7:30 PM EST Vani Winkler MD POINT OF CARE TEST ORDERABLE S Final Result Performing Organization Address City/[facility] Co de Phone Number [facility] [address] [place] [address]. [address] * POC Sodium (10/17/2025 7:26 PM EST) Pathologist [facility] POC Sodium 143 136 - 146 mmol/L 10/17/2025 7:30 PM EST [facility] Blood, Arterial 10/17/2025 7 :26 PM EST 10/17/2025 7:30 PM EST Vani Winkler MD POINT OF CARE TEST ORDERABLE S Final Result Performing Organization Address City/[facility]/ZIP Co de Phone Number [facility] [address] [place] [address]. [address] * POC TCO2 (10/17/2025 7:26 PM EST) POC TCO2, Arterial 24 23 - 27 mmol/L 10/17/2025 7:30 PM EST [facility] Blood, Arterial 10/17/2025 7 :26 PM EST 10/17/2025 7:30 PM EST Vani Winkler MD POINT OF CARE TEST ORDERABLE S Final Result [facility] [address] [facility]. [address] * (ABNORMAL) POC O2 SAT (10/17/2025 7:26 PM EST) POC O2 Saturation, Arterial 99(H) 95 - 98 % 10/17/2025 7:30 PM EST [facility] Blood, Arterial 10/17/2025 7 :26 PM EST 10/17/2025 7:30 PM EST Vani Winkler MD POINT OF CARE TEST ORDERABLE S Final Result [facility] [address] [facility]. [address] * POC Base Excess (10/17/2025 7:26 PM EST) POC Base Excess, Arterial -2 -2 - 3 mmol/L 10/17/2025 7:30 PM EST [facility] Blood, Arterial 10/17/2025 7 :26 PM EST 10/17/2025 7:30 PM EST Vani Winkler MD POINT OF CARE TEST ORDERABLE S Final Result [facility] [address] [facility]. [address] * POC HCO3 (10/17/2025 7:26 PM EST) POC HCO3, Arterial 23 22 - 26 mmol/L 10/17/2025 7:30 PM EST [facility] Blood, Arterial 10/17/2025 7 :26 PM EST 10/17/2025 7:30 PM EST us Vani Winkler MD POINT OF CARE TEST ORDERABLE S Final Result Performing Organization Address City/[facility]/ZIP Co de Phone Number [facility] [address] [facility]. [address] * (ABNORMAL) POC PO2 (10/17/2025 7:26 PM EST) POC pO2, Arterial 156(H) 80 - 100 mm Hg 10/17/2025 7:30 PM EST [facility] Blood, Arterial 10/17/2025 7 :26 PM EST 10/17/2025 7:30 PM EST us Vani Winkler MD POINT OF CARE TEST ORDERABLE S Final Result Performing Organization Address City/[facility] Co de Phone Number [facility] [address] [facility]. [address] * POC PCO2 (10/17/2025 7:26 PM EST) POC pCO2, Arterial 40 35 - 45 mm Hg 10/17/2025 7:30 PM EST [facility] Blood, Arterial 10/17/2025 7 :26 PM EST 10/17/2025 7:30 PM EST us Vani Winkler MD POINT OF CARE TEST ORDERABLE S Final Result Performing Organization Address City/[facility] Co de Phone Number [facility] [address] [facility]. [address] * POC pH (10/17/2025 7:26 PM EST) POC pH, Arterial 7.37 7.35 - 7.45 10/17/2025 7:30 PM EST [facility] Blood, Arterial 10/17/2025 7 :26 PM EST 10/17/2025 7:30 PM EST us Vani Winkler MD POINT OF CARE TEST ORDERABLE S Final Result [facility] [address] * (ABNORMAL) POC INR (10/17/2025 7:25 PM EST) Prothrombin Time INR, POC 5.9(HH) 0.8 - 1.4 10/18/2025 12:07 AM EST [facility] Comment: Test results may vary using different testing platforms. Serial result monitoring should be performed using the same methodology. RECOMMENDED THERAPEUTIC RANGES USING INR : Stable oral anticoagulant therapy: 2.0 - 3.0 Mechanical prosthetic heart valve: 2.5 - 3.5 Recurrent acute myocardial infarction: 2.5 - 3.5 Blood 10/17/2025 7:25 PM EST 10/18/2025 12:07 AM EST Vani Winkler MD POINT OF CARE TEST ORDERABLE S Final Result Performing Organization Address City/[facility]/ZIP Co de Phone Number [facility] [address] [facility]. [address] * Transfuse Platelets (10/17/2025 7:03 PM EST) Result [facility] Slade Munoz MD NURSING TREATMENT ORDERABLES - B LOOD ADMIN Final Result * (ABNORMAL) TEG-Bypass/ECMO/Liver HN (Factor function, Platelet/Fibrin Clot Strength w/Clot Breakdown, Heparinase In All Channels) (10/17/2025 6:39 PM EST) Citrated Kaolin Reaction Time (TEGECMOLIVER) 7.1 4.6 - 9.1 minutes 10/17/2025 8:07 PM EST [facility] Citrated Kaolin W/Heparinase Reaction Time (TEGECMOLIVER) 2.5(L) 4.3 - 8.3 minutes 10/17/2025 8:07 PM EST [facility] Citrated Kaolin Maximum Amplitude (TEGECMOLIVER) 41.6(L) 52.0 - 69.0 mm 10/17/2025 8:07 PM EST [facility] Citrated Functional Fibrinogen W/Heparinase Maximum Amplitude(TEGEC MOLIVER) 20.9 15.0 - 34.0 mm 10/17/2025 8:07 PM EST [facility] Citrated Rapid Teg W/Heparinase Maximum Amplitude (TEGECMOLIVER) 30.9(L) 53.0 - 69.0 mm 10/17/2025 8:07 PM EST [facility] Citrated Kaolin w/Heparinase Percent Lysis (TEGECMOLIVER) 0.0 0.0 - 3.2 % 10/17/2025 8:07 PM EST [facility] Whole Blood (Citrate) 10/17/2025 6:39 PM EST 10/17/2025 6:45 PM EST Shannan Salas MD LAB BLOOD ORDERABLES Final R esult Performing Organization Address City/State/[facility] Co de Phone Number [facility] [address] * (ABNORMAL) CBC (10/17/2025 6:39 PM EST) WBC 4.8 3.8 - 10.8 10E3/uL 10/17/2025 6:54 PM [facility] RBC 3.19(L) 4.20 - 5.80 10E6/uL 10/17/2025 6:54 PM [facility] Hemoglobin 10.3(L) 13.2 - 17.1 g/dL 10/17/2025 6:54 PM [facility] Hematocrit 30.2(L) 38.5 - 50.0 % 10/17/2025 6:54 PM [facility] MCV 94.8 80.0 - 100.0 fL 10/17/2025 6:54 PM [facility] MCH 32.3 27.0 - 33.0 pg 10/17/2025 6:54 PM [facility] MCHC 34.1 32.0 - 36.0 g/dL 10/17/2025 6:54 PM [facility] RDW 17.8(H) 11.0 - 15.0 % 10/17/2025 6:54 PM [facility] Platelets 47(L) 140 - 400 10E3/uL 10/17/2025 6:54 PM EST [facility] Comment:CNV MPV 7.7 7.5 - 11.5 fL 10/17/2025 6:54 PM EST [facility] Whole Blood 10/17/2025 6:39 PM EST 10/17/2025 6:45 PM EST Shannan Salas MD LAB BLOOD ORDERABLES Final R esult [facility] [address] [facility]. [address] * (ABNORMAL) Protime-INR (10/17/2025 6:39 PM EST) Protime 69.5(HH) 12.1 - 15.1 seconds 10/17/2025 7:30 PM EST [facility] Comment:The critical result was called to, and read back by, licensed caregiver ROSALIND HAWK RN, AT 1930 INR 7.5(HH) 0.9 - 1.1 10/17/2025 7:30 PM EST [facility] Comment: RECOMMENDED THERAPEUTIC RANGES [...] MD LAB BLOOD ORDERABLES Final R esult [facility] [address] [facility]. [address] * (ABNORMAL) Fibrinogen (10/17/2025 6:39 PM EST) Fibrinogen 159(L) 218 - 406 mg/dL 10/17/2025 7:04 PM EST [facility] Plasma 10/17/2025 6:39 PM EST 10/17/2025 6:45 PM EST us Shannan Salas MD LAB BLOOD ORDERABLES Final R esult [facility] [address] [facility]. [address] * Transfuse Cryoprecipitate (10/17/2025 6:31 PM EST) Slade Munoz MD NURSING TREATMENT ORDERABLES - B LOOD ADMIN Final Result * POC Sample Type (10/17/2025 6:23 PM EST) POC Sample Type Arterial 10/17/2025 6:25 PM EST [facility] Blood, Arterial 10/17/2025 6 :23 PM EST 10/17/2025 6:25 PM EST Vani Winkler MD POINT OF CARE TEST ORDERABLE S Final Result Performing Organization Address City/[facility]/ZIP Co de Phone Number [facility] [address] * POC Anion Gap (10/17/2025 6:23 PM EST) Pathologist [facility] POC Anion Gap, Arterial 13 3 - 16 mmol/L 10/17/2025 6:25 PM EST [facility] Blood, Arterial 10/17/2025 6 :23 PM EST 10/17/2025 6:25 PM EST Vani Winkler MD POINT OF CARE TEST ORDERABLE S Final Result [facility] [address] * POC Chloride (10/17/2025 6:23 PM EST) POC Chloride 110 98 - 110 mmol/L 10/17/2025 6:25 PM EST [facility] Blood, Arterial 10/17/2025 6 :23 PM EST 10/17/2025 6:25 PM EST Vani Winkler MD POINT OF CARE TEST ORDERABLE S Final Result Performing Organization Address City/[facility] Co de Phone Number [facility] [address] [facility]. [address] * (ABNORMAL) POC Hemoglobin (10/17/2025 6:23 PM EST) POC Hemoglobin 9.8(L) 14.0 - 18.0 g/dL 10/17/2025 6:25 PM EST [facility] Blood, Arterial 10/17/2025 6 :23 PM EST 10/17/2025 6:25 PM EST Vani Winkler MD POINT OF CARE TEST ORDERABLE S Final Result Performing Organization Address [facility] Co de Phone Number [facility] [address] [facility]. [address] * (ABNORMAL) POC hematocrit (10/17/2025 6:23 PM EST) POC Hematocrit 29.0(L) 40 - 52 % 10/17/2025 6:25 PM EST [facility] Blood, Arterial 10/17/2025 6 :23 PM EST 10/17/2025 6:25 PM EST Vani Winkler MD POINT OF CARE TEST ORDERABLE S Final Result Performing Organization Address City/[facility] Co de Phone Number [facility] [address] [facility]. [address] * (ABNORMAL) POC Lactate (10/17/2025 6:23 PM EST) POC Lactate 3.26(H) 0.50 - 2.20 mmol/L 10/17/2025 6:25 PM EST [facility] Blood, Arterial 10/17/2025 6 :23 PM EST 10/17/2025 6:25 PM EST Vani Winkler MD POINT OF CARE TEST ORDERABLE S Final Result Performing Organization Address [facility]/ZIP Co de Phone Number [facility] [address] [place] [address]. [address] * (ABNORMAL) POC Glucose (10/17/2025 6:23 PM EST) POC Glucose, Arterial 170(H) 70 - 100 mg/dL 10/17/2025 6:25 PM EST [facility] Blood, Arterial 10/17/2025 6 :23 PM EST 10/17/2025 6:25 PM EST Vani Winkler MD POINT OF CARE TEST ORDERABLE S Final Result Performing Organization Address [facility] Co de Phone Number [facility] [address] [place] [address]. [address] * (ABNORMAL) POC Ionized Calcium (10/17/2025 6:23 PM EST) POC Ionized Calcium 6.00(H) 4.50 - 5.30 mg/dL 10/17/2025 6:25 PM EST [facility] Blood, Arterial 10/17/2025 6 :23 PM EST 10/17/2025 6:25 PM EST Vani Winkler MD POINT OF CARE TEST ORDERABLE S Final Result Performing Organization Address [facility] Co de Phone Number [facility] [address] * POC Potassium (10/17/2025 6:23 PM EST) POC Potassium 3.8 3.5 - 5.3 mmol/L 10/17/2025 6:25 PM EST [facility] Blood, Arterial 10/17/2025 6 :23 PM EST 10/17/2025 6:25 PM EST Vani Winkler MD POINT OF CARE TEST ORDERABLE S Final Result [facility] [address] * POC Sodium (10/17/2025 6:23 PM EST) POC Sodium 142 136 - 146 mmol/L 10/17/2025 6:25 PM EST [facility] Blood, Arterial 10/17/2025 6 :23 PM EST 10/17/2025 6:25 PM EST Vani Winkler MD POINT OF CARE TEST ORDERABLE S Final Result [facility] [address] * (ABNORMAL) POC TCO2 (10/17/2025 6:23 PM EST) POC TCO2, Arterial 20(L) 23 - 27 mmol/L 10/17/2025 6:25 PM EST [facility] Blood, Arterial 10/17/2025 6 :23 PM EST 10/17/2025 6:25 PM EST Vani Winkler MD POINT OF CARE TEST ORDERABLE S Final Result [facility] [address] [facility]. [address] * POC O2 SAT (10/17/2025 6:23 PM EST) POC O2 Saturation, Arterial 95 95 - 98 % 10/17/2025 6:25 PM EST [facility] Blood, Arterial 10/17/2025 6 :23 PM EST 10/17/2025 6:25 PM EST Vani Winkler MD POINT OF CARE TEST ORDERABLE S Final Result [facility] [address] * (ABNORMAL) POC Base Excess (10/17/2025 6:23 PM EST) POC Base Excess, Arterial -6(L) -2 - 3 mmol/L 10/17/2025 6:25 PM EST [facility] Blood, Arterial 10/17/2025 6 :23 PM EST 10/17/2025 6:25 PM EST Vani Winkler MD POINT OF CARE TEST ORDERABLE S Final Result [facility] [address] [facility]. [address] * (ABNORMAL) POC HCO3 (10/17/2025 6:23 PM EST) POC HCO3, Arterial 19(L) 22 - 26 mmol/L 10/17/2025 6:25 PM EST [facility] Blood, Arterial 10/17/2025 6 :23 PM EST 10/17/2025 6:25 PM EST Vani Winkler MD POINT OF CARE TEST ORDERABLE S Final Result Performing Organization Address City/[facility]/ZIP Co de Phone Number [facility] [address] [facility] * POC PO2 (10/17/2025 6:23 PM EST) POC pO2, Arterial 80 80 - 100 mm Hg 10/17/2025 6:25 PM EST [facility] Blood, Arterial 10/17/2025 6 :23 PM EST 10/17/2025 6:25 PM EST Vani Winkler MD POINT OF CARE TEST ORDERABLE S Final Result [facility] [address] [facility] * POC PCO2 (10/17/2025 6:23 PM EST) POC pCO2, Arterial 36 35 - 45 mm Hg 10/17/2025 6:25 PM EST [facility] Blood, Arterial 10/17/2025 6 :23 PM EST 10/17/2025 6:25 PM EST Result [facility] Vani Winkler MD POINT OF CARE TEST ORDERABLE S Final Result [facility] [address] [facility]. [address] * (ABNORMAL) POC pH (10/17/2025 6:23 PM EST) POC pH, Arterial 7.33(L) 7.35 - 7.45 10/17/2025 6:25 PM EST [facility] Blood, Arterial 10/17/2025 6 :23 PM EST 10/17/2025 6:25 PM EST Result [facility] Vani Winkler MD POINT OF CARE TEST ORDERABLE S Final Result Performing Organization Address [facility] Co de Phone Number [facility] [address] [facility] * (ABNORMAL) POC INR (10/17/2025 6:21 PM EST) Prothrombin Time INR, POC 6.4(HH) 0.8 - 1.4 10/18/2025 12:07 AM EST [facility] Comment: Test results may vary using different testing platforms. Serial result monitoring should be performed using the same methodology. RECOMMENDED THERAPEUTIC RANGES USING INR : Stable oral anticoagulant therapy: 2.0 - 3.0 Mechanical prosthetic heart valve: 2.5 - 3.5 Recurrent acute myocardial infarction: 2.5 - 3.5 Blood 10/17/2025 6:21 PM EST 10/18/2025 12:07 AM EST Result [facility] Vani Winkler MD POINT OF CARE TEST ORDERABLE S Final Result Performing Organization Address City/[facility]/ZIP Co de Phone Number [facility] [address] [facility] * Transfuse Cryoprecipitate (10/17/2025 6:18 PM EST) Slade Munoz MD NURSING TREATMENT ORDERABLES - B LOOD ADMIN Final Result * POC Sample Type (10/17/2025 5:42 PM EST) POC Sample Type Arterial 10/17/2025 6:21 PM EST [facility] Blood, Arterial 10/17/2025 5 :42 PM EST 10/17/2025 6:21 PM EST Vani Winkler MD POINT OF CARE TEST ORDERABLE S Final Result [facility] [address] [facility] * POC Anion Gap (10/17/2025 5:42 PM EST) POC Anion Gap, Arterial 10 3 - 16 mmol/L 10/17/2025 6:21 PM EST [facility] Blood, Arterial 10/17/2025 5 :42 PM EST 10/17/2025 6:21 PM EST Vani Winkler MD POINT OF CARE TEST ORDERABLE S Final Result Performing Organization Address City/[facility]/ZIP Co de Phone Number [facility] [address] [facility] * (ABNORMAL) POC Chloride (10/17/2025 5:42 PM EST) POC Chloride 111(H) 98 - 110 mmol/L 10/17/2025 6:21 PM EST [facility] Blood, Arterial 10/17/2025 5 :42 PM EST 10/17/2025 6:21 PM EST Vani Winkler MD POINT OF CARE TEST ORDERABLE S Final Result [facility] [address] * (ABNORMAL) POC Hemoglobin (10/17/2025 5:42 PM EST) POC Hemoglobin 7.9(L) 14.0 - 18.0 g/dL 10/17/2025 6:21 PM EST [facility] Blood, Arterial 10/17/2025 5 :42 PM EST 10/17/2025 6:21 PM EST Vani Winkler MD POINT OF CARE TEST ORDERABLE S Final Result [facility] [address] * (ABNORMAL) POC hematocrit (10/17/2025 5:42 PM EST) POC Hematocrit 23.0(L) 40 - 52 % 10/17/2025 6:21 PM EST [facility] Blood, Arterial 10/17/2025 5 :42 PM EST 10/17/2025 6:21 PM EST Vani Winkler MD POINT OF CARE TEST ORDERABLE S Final Result Performing Organization Address City/[facility]/ZIP Co de Phone Number [facility] [address] [facility] * (ABNORMAL) POC Lactate (10/17/2025 5:42 PM EST) POC Lactate 2.53(H) 0.50 - 2.20 mmol/L 10/17/2025 6:21 PM EST [facility] Blood, Arterial 10/17/2025 5 :42 PM EST 10/17/2025 6:21 PM EST Vani Winkler MD POINT OF CARE TEST ORDERABLE S Final Result Performing Organization Address City/[facility]/ZIP Co de Phone Number [facility] [address] [facility] * POC Glucose (10/17/2025 5:42 PM EST) Pathologist [facility] POC Glucose, Arterial 77 70 - 100 mg/dL 10/17/2025 6:21 PM EST [facility] Blood, Arterial 10/17/2025 5 :42 PM EST 10/17/2025 6:21 PM EST Vani Winkler MD POINT OF CARE TEST ORDERABLE S Final Result [facility] [address] [place] [address]. [address] * (ABNORMAL) POC Ionized Calcium (10/17/2025 5:42 PM EST) Pathologist [facility] POC Ionized Calcium 5.90(H) 4.50 - 5.30 mg/dL 10/17/2025 6:21 PM EST [facility] Blood, Arterial 10/17/2025 5 :42 PM EST 10/17/2025 6:21 PM EST Vani Winkler MD POINT OF CARE TEST ORDERABLE S Final Result [facility] [address] [place] [address]. [address] * POC Potassium (10/17/2025 5:42 PM EST) [facility] POC Potassium 3.7 3.5 - 5.3 mmol/L 10/17/2025 6:21 PM EST [facility] Blood, Arterial 10/17/2025 5 :42 PM EST 10/17/2025 6:21 PM EST Vani Winkler MD POINT OF CARE TEST ORDERABLE S Final Result [facility] [address] [place] [address]. [address] * POC Sodium (10/17/2025 5:42 PM EST) [facility] POC Sodium 141 136 - 146 mmol/L 10/17/2025 6:21 PM EST [facility] Blood, Arterial 10/17/2025 5 :42 PM EST 10/17/2025 6:21 PM EST Vani Winkler MD POINT OF CARE TEST ORDERABLE S Final Result [facility] [address] [facility]. [address] * (ABNORMAL) POC TCO2 (10/17/2025 5:42 PM EST) POC TCO2, Arterial 21(L) 23 - 27 mmol/L 10/17/2025 6:21 PM EST [facility] Blood, Arterial 10/17/2025 5 :42 PM EST 10/17/2025 6:21 PM EST Vani Winkler MD POINT OF CARE TEST ORDERABLE S Final Result Performing Organization Address City/[facility]/ZIP Co de Phone Number [facility] [address] * (ABNORMAL) POC O2 SAT (10/17/2025 5:42 PM EST) POC O2 Saturation, Arterial 99(H) 95 - 98 % 10/17/2025 6:21 PM EST [facility] Blood, Arterial 10/17/2025 5 :42 PM EST 10/17/2025 6:21 PM EST Vani Winkler MD POINT OF CARE TEST ORDERABLE S Final Result [facility] [address] [facility]. [address] * (ABNORMAL) POC Base Excess (10/17/2025 5:42 PM EST) POC Base Excess, Arterial -4(L) -2 - 3 mmol/L 10/17/2025 6:21 PM EST [facility] Blood, Arterial 10/17/2025 5 :42 PM EST 10/17/2025 6:21 PM EST Vani Winkler MD POINT OF CARE TEST ORDERABLE S Final Result Performing Organization Address [facility]/ZIP Co de Phone Number [facility] [address] [place] [address]. [address] * (ABNORMAL) POC HCO3 (10/17/2025 5:42 PM EST) POC HCO3, Arterial 20(L) 22 - 26 mmol/L 10/17/2025 6:21 PM EST [facility] Blood, Arterial 10/17/2025 5 :42 PM EST 10/17/2025 6:21 PM EST Vani Winkler MD POINT OF CARE TEST ORDERABLE S Final Result Performing Organization Address [facility] Co de Phone Number [facility] [address] [place] [address]. [address] * (ABNORMAL) POC PO2 (10/17/2025 5:42 PM EST) POC pO2, Arterial 159(H) 80 - 100 mm Hg 10/17/2025 6:21 PM EST [facility] Blood, Arterial 10/17/2025 5 :42 PM EST 10/17/2025 6:21 PM EST Vani Winkler MD POINT OF CARE TEST ORDERABLE S Final Result Performing Organization Address City/[facility] Co de Phone Number [facility] [address] [place] [address]. [address] * (ABNORMAL) POC PCO2 (10/17/2025 5:42 PM EST) POC pCO2, Arterial 33(L) 35 - 45 mm Hg 10/17/2025 6:21 PM EST [facility] Blood, Arterial 10/17/2025 5 :42 PM EST 10/17/2025 6:21 PM EST Vani Winkler MD POINT OF CARE TEST ORDERABLE S Final Result [facility] [address] * POC pH (10/17/2025 5:42 PM EST) POC pH, Arterial 7.40 7.35 - 7.45 10/17/2025 6:21 PM EST [facility] Blood, Arterial 10/17/2025 5 :42 PM EST 10/17/2025 6:21 PM EST Vani Winkler MD POINT OF CARE TEST ORDERABLE S Final Result Performing Organization Address [facility] Co de Phone Number [facility] [address] [facility]. [address] * (ABNORMAL) POC INR (10/17/2025 5:37 PM EST) Prothrombin Time INR, POC 3.6(H) 0.8 - 1.4 10/18/2025 12:07 AM EST [facility] Comment: Test results may [...] OF CARE TEST ORDERABLE S Final Result [facility] [address] [facility]. [address] * Transfuse RBC (10/17/2025 5:34 PM EST) [...] [facility] - 10/17/2025 12:00 AM EST CASE: [id number] PATIENT: DAVID SERRANO Clinical History: transplant liver Pre-Operative Diagnosis: end stage liver disease Post-Operative Diagnosis: same Specimen(s) Submitted: A. Samish liver and gallbladder; B. Right lobe post perfusion liver bx; C. Left lobe post perfusion liver bx CPT Code(s): 69629 X 2; 07266 X 1; 73821 X 7 Additional Information: FINAL DIAGNOSIS: Liver and gall bladder, [place], total hepatectomy with cholecystectomy: Liver: -Cirrhosis, mild [...] with the patient's name David Serrano and e[place] liver and gallbladder is a 782 gram, [...] no discrete masses or lesions are identified. Gyro Compass Tester sections are submitted in cassettes [id number] as follows: A1: Gyro Compass Tester gallbladder. A2: Hilar margins, en face. A3-A5: Gyro Compass Tester right lobe. A6-A8: Gyro Compass Tester left lobe with liver written on the side of the cassette in A8. (LAISHA Miranda/vc) B. Received in formalin, labeled with the patient's name David Serrano and right lobe post perfusion liver biopsy is a 1.6 cm in length x 0.1 cm in diameter red-brown tissue core, which is entirely submitted between blue biopsy sponges in cassette [id number] B1. (LAISHA Miranda/vc) C. Received in formalin, labeled with the patient's name David Serrano and left lobe post perfusion liver biopsy is a 1.3 cm in length x 0.1 cm in diameter red-brown fragmented tissue core, which is entirely submitted between blue biopsy sponges in cassette [id number] C1. (LAISHA Miranda/vc) Microscopic Description: Sixteen HE [...] Pathologist signing this report is located at [facility], [address] [place] [address], [place], [place], Formerly [facility], , CLIA ID: [id number] us Leticia Lomeli MD PATHOLOGY/CYTOLOGY ORDERABLES Final Result [facility] * Transfuse RBC (10/17/2025 5:19 PM EST) us Slade Munoz MD NURSING TREATMENT ORDERABLES - B LOOD ADMIN Final Result * POC Sample Type (10/17/2025 5:00 PM EST) POC Sample Type Arterial 10/17/2025 5:03 PM EST [facility] Blood, Arterial 10/17/2025 5 :00 PM EST 10/17/2025 5:03 PM EST us Vani Winkler MD POINT OF CARE TEST ORDERABLE S Final Result Performing Organization Address City/[facility]/ZIP Co de Phone Number [facility] [address] [facility]. [address] * POC Anion Gap (10/17/2025 5:00 PM EST) POC Anion Gap, Arterial 11 3 - 16 mmol/L 10/17/2025 5:03 PM EST [facility] Blood, Arterial 10/17/2025 5 :00 PM EST 10/17/2025 5:03 PM EST us Vani Winkler MD POINT OF CARE TEST ORDERABLE S Final Result Performing Organization Address City/[facility]/ZIP Co de Phone Number [facility] [address] [facility]. [address] * POC Chloride (10/17/2025 5:00 PM EST) POC Chloride 109 98 - 110 mmol/L 10/17/2025 5:03 PM EST [facility] Blood, Arterial 10/17/2025 5 :00 PM EST 10/17/2025 5:03 PM EST us Vani Winkler MD POINT OF CARE TEST ORDERABLE S Final Result [facility] [address] * (ABNORMAL) POC Hemoglobin (10/17/2025 5:00 PM EST) POC Hemoglobin 7.9(L) 14.0 - 18.0 g/dL 10/17/2025 5:03 PM EST [facility] Blood, Arterial 10/17/2025 5 :00 PM EST 10/17/2025 5:03 PM EST Vani Winkler MD POINT OF CARE TEST ORDERABLE S Final Result [facility] [address] * (ABNORMAL) POC hematocrit (10/17/2025 5:00 PM EST) POC Hematocrit 23.0(L) 40 - 52 % 10/17/2025 5:03 PM EST [facility] Blood, Arterial 10/17/2025 5 :00 PM EST 10/17/2025 5:03 PM EST Vani Winkler MD POINT OF CARE TEST ORDERABLE S Final Result [facility] [address] [facility]. [address] * (ABNORMAL) POC Lactate (10/17/2025 5:00 PM EST) POC Lactate 2.68(H) 0.50 - 2.20 mmol/L 10/17/2025 5:03 PM EST [facility] Blood, Arterial 10/17/2025 5 :00 PM EST 10/17/2025 5:03 PM EST Vani Winkler MD POINT OF CARE TEST ORDERABLE S Final Result [facility] [address] [facility]. [address] * POC Glucose (10/17/2025 5:00 PM EST) Pathologist [facility] POC Glucose, Arterial 96 70 - 100 mg/dL 10/17/2025 5:03 PM EST [facility] Blood, Arterial 10/17/2025 5 :00 PM EST 10/17/2025 5:03 PM EST Vani Winkler MD POINT OF CARE TEST ORDERABLE S Final Result [facility] [address] [place] [address]. [address] * POC Ionized Calcium (10/17/2025 5:00 PM EST) [facility] POC Ionized Calcium 4.60 4.50 - 5.30 mg/dL 10/17/2025 5:03 PM EST [facility] Blood, Arterial 10/17/2025 5 :00 PM EST 10/17/2025 5:03 PM EST Vani Winkler MD POINT OF CARE TEST ORDERABLE S Final Result [facility] [address] [place] [address]. [address] * POC Potassium (10/17/2025 5:00 PM EST) Pathologist [facility] POC Potassium 3.7 3.5 - 5.3 mmol/L 10/17/2025 5:03 PM EST [facility] Blood, Arterial 10/17/2025 5 :00 PM EST 10/17/2025 5:03 PM EST Vani Winkler MD POINT OF CARE TEST ORDERABLE S Final Result [facility] [address] [place] [address]. [address] * POC Sodium (10/17/2025 5:00 PM EST) [facility] POC Sodium 143 136 - 146 mmol/L 10/17/2025 5:03 PM EST [facility] Blood, Arterial 10/17/2025 5 :00 PM EST 10/17/2025 5:03 PM EST Vani Winkler MD POINT OF CARE TEST ORDERABLE S Final Result [facility] [address] [place] [address]. [address] * POC TCO2 (10/17/2025 5:00 PM EST) POC TCO2, Arterial 24 23 - 27 mmol/L 10/17/2025 5:03 PM EST [facility] Blood, Arterial 10/17/2025 5 :00 PM EST 10/17/2025 5:03 PM EST Vani Winkler MD POINT OF CARE TEST ORDERABLE S Final Result [facility] [address] [facility]. [address] * (ABNORMAL) POC O2 SAT (10/17/2025 5:00 PM EST) Pathologist [facility] POC O2 Saturation, Arterial 100(H) 95 - 98 % 10/17/2025 5:03 PM EST [facility] Blood, Arterial 10/17/2025 5 :00 PM EST 10/17/2025 5:03 PM EST Vani Winkler MD POINT OF CARE TEST ORDERABLE S Final Result [facility] [address] [facility]. [address] * POC Base Excess (10/17/2025 5:00 PM EST) POC Base Excess, Arterial -2 -2 - 3 mmol/L 10/17/2025 5:03 PM EST [facility] Blood, Arterial 10/17/2025 5 :00 PM EST 10/17/2025 5:03 PM EST Vani Winkler MD POINT OF CARE TEST ORDERABLE S Final Result [facility] [address] * POC HCO3 (10/17/2025 5:00 PM EST) POC HCO3, Arterial 23 22 - 26 mmol/L 10/17/2025 5:03 PM EST [facility] Blood, Arterial 10/17/2025 5 :00 PM EST 10/17/2025 5:03 PM EST us Vani Winkler MD POINT OF CARE TEST ORDERABLE S Final Result Performing Organization Address City/[facility]/ZIP Co de Phone Number [facility] [address] [facility]. [address] * (ABNORMAL) POC PO2 (10/17/2025 5:00 PM EST) POC pO2, Arterial 200(H) 80 - 100 mm Hg 10/17/2025 5:03 PM EST [facility] Blood, Arterial 10/17/2025 5 :00 PM EST 10/17/2025 5:03 PM EST Vani Winkler MD POINT OF CARE TEST ORDERABLE S Final Result [facility] [address] [facility]. [address] * POC PCO2 (10/17/2025 5:00 PM EST) POC pCO2, Arterial 38 35 - 45 mm Hg 10/17/2025 5:03 PM EST [facility] Blood, Arterial 10/17/2025 5 :00 PM EST 10/17/2025 5:03 PM EST Vani Winkler MD POINT OF CARE TEST ORDERABLE S Final Result [facility] [address] * POC pH (10/17/2025 5:00 PM EST) POC pH, Arterial 7.39 7.35 - 7.45 10/17/2025 5:03 PM EST [facility] Blood, Arterial 10/17/2025 5 :00 PM EST 10/17/2025 5:03 PM EST Vani Winkler MD POINT OF CARE TEST ORDERABLE S Final Result Performing Organization Address [facility] Co de Phone Number [facility] [address] * (ABNORMAL) POC INR (10/17/2025 4:59 PM EST) Pathologist [facility] Prothrombin Time INR, POC 1.7(H) 0.8 - 1.4 10/18/2025 12:07 AM EST [facility] Comment: Test results may vary using different testing platforms. Serial result monitoring should be performed using the same methodology. RECOMMENDED THERAPEUTIC RANGES USING INR : Stable oral anticoagulant therapy: 2.0 - 3.0 Mechanical prosthetic heart valve: 2.5 - 3.5 Recurrent acute myocardial infarction: 2.5 - 3.5 Blood 10/17/2025 4:59 PM EST 10/18/2025 12:07 AM EST Vani Winkler MD POINT OF CARE TEST ORDERABLE S Final Result [facility] [address] * (ABNORMAL) TEG-Bypass/ECMO/Liver HN (Factor function, Platelet/Fibrin Clot Strength w/Clot Breakdown, Heparinase In All Channels) (10/17/2025 4:56 PM EST) Pathologist [facility] Citrated Kaolin Reaction Time (TEGECMOLIVER) 4.7 4.6 - 9.1 minutes 10/17/2025 6:20 PM EST [facility] Citrated Kaolin W/Heparinase Reaction Time (TEGECMOLIVER) 4.7 4.3 - 8.3 minutes 10/17/2025 6:20 PM EST [facility] Citrated Kaolin Maximum Amplitude (TEGECMOLIVER) 42.4(L) 52.0 - 69.0 mm 10/17/2025 6:20 PM EST [facility] Citrated Functional Fibrinogen W/Heparinase Maximum Amplitude(TEGEC MOLIVER) 6.6(L) 15.0 - 34.0 mm 10/17/2025 6:20 PM EST [facility] Citrated Rapid Teg W/Heparinase Maximum Amplitude (TEGECMOLIVER) 39.8(L) 53.0 - 69.0 mm 10/17/2025 6:20 PM EST [facility] Citrated Kaolin w/Heparinase Percent Lysis (TEGECMOLIVER) 0.0 0.0 - 3.2 % 10/17/2025 6:20 PM EST [facility] Whole Blood (Citrate) 10/17/2025 4:56 PM EST 10/17/2025 5:06 PM EST us Slade Munoz MD LAB BLOOD ORDERABLES Final Resul t [facility] [address] [place] [address], [facility] * (ABNORMAL) Protime-INR (10/17/2025 4:56 PM EST) Protime 26.4(H) 12.1 - 15.1 seconds 10/17/2025 5:31 PM EST [facility] INR 2.3(H) 0.9 - 1.1 10/17/2025 5:31 PM EST [facility] Comment: RECOMMENDED THERAPEUTIC RANGES USING INR : Stable oral anticoagulant therapy: 2.0 - 3.0 Mechanical prosthetic heart valve: 2.5 - 3.5 Recurrent acute myocardial infarction: 2.5 - 3.5 Plasma 10/17/2025 4:56 PM EST 10/17/2025 5:06 PM EST Slade Munoz MD LAB BLOOD ORDERABLES Final Resul t [facility] [address] [facility]. [address] * (ABNORMAL) Fibrinogen (10/17/2025 4:56 PM EST) Fibrinogen 137(L) 218 - 406 mg/dL 10/17/2025 5:36 PM EST [facility] Plasma 10/17/2025 4:56 PM EST 10/17/2025 5:06 PM EST Slade Munoz MD LAB BLOOD ORDERABLES Final Resul t Performing Organization Address City/[facility] Co de Phone Number [facility] [address] [facility]. [address] * (ABNORMAL) CBC (10/17/2025 4:56 PM EST) WBC 3.9 3.8 - 10.8 10E3/uL 10/17/2025 8:25 PM EST [facility] RBC 2.67(L) 4.20 - 5.80 10E6/uL 10/17/2025 8:25 PM EST [facility] Hemoglobin 9.2(L) 13.2 - 17.1 g/dL 10/17/2025 8:25 PM EST [facility] Hematocrit 26.1(L) 38.5 - 50.0 % 10/17/2025 8:25 PM EST [facility] MCV 98.0 80.0 - 100.0 fL 10/17/2025 8:25 PM EST [facility] MCH 34.5(H) 27.0 - 33.0 pg 10/17/2025 8:25 PM EST [facility] MCHC 35.3 32.0 - 36.0 g/dL 10/17/2025 8:25 PM EST [facility] RDW 17.9(H) 11.0 - 15.0 % 10/17/2025 8:25 PM EST [facility] Platelets 64(L) 140 - 400 10E3/uL 10/17/2025 8:25 PM EST [facility] MPV 8.2 7.5 - 11.5 fL 10/17/2025 8:25 PM EST [facility] Whole Blood 10/17/2025 4:56 PM EST 10/17/2025 5:19 PM EST Slade Munoz MD LAB BLOOD ORDERABLES Final Resul t [facility] [address] * (ABNORMAL) APTT, No Anticoagulant (10/17/2025 4:56 PM EST) aPTT 55.7(H) 25.5 - 35.0 seconds 10/17/2025 5:32 PM EST [facility] Plasma 10/17/2025 4:56 PM EST 10/17/2025 5:06 PM EST Result [facility] Slade Munoz MD LAB BLOOD ORDERABLES Final Resul t Performing Organization Address City/[facility]/ZIP Co de Phone Number [facility] [address] [facility]. [address] * Transfuse Cryoprecipitate (10/17/2025 4:18 PM EST) Result [facility] Slade Munoz MD NURSING TREATMENT ORDERABLES - B LOOD ADMIN Final Result * Transfuse Cryoprecipitate Transfusion Rate: Per dept routine (10/17/2025 4:18 PM EST) Result [facility] Slade Munoz MD NURSING TREATMENT ORDERABLES - B LOOD ADMIN Final Result EXTERNAL * Transfuse Cryoprecipitate Transfusion Rate: Per dept routine, 1 Units (10/17/2025 4:18 PM EST) us Slade Munoz MD NURSING TREATMENT ORDERABLES - B LOOD ADMIN Final Result EXTERNAL * Transfuse Platelets (10/17/2025 4:06 PM EST) Result [facility] us Slade Munoz MD NURSING TREATMENT ORDERABLES - B LOOD ADMIN Final Result * POC Sample Type (10/17/2025 3:59 PM EST) POC Sample Type Arterial 10/17/2025 4:01 PM EST [facility] Blood, Arterial 10/17/2025 3 :59 PM EST 10/17/2025 4:01 PM EST Vani Winkler MD POINT OF CARE TEST ORDERABLE S Final Result [facility] [address] [facility]. [address] * POC Anion Gap (10/17/2025 3:59 PM EST) Pathologist [facility] POC Anion Gap, Arterial 10 3 - 16 mmol/L 10/17/2025 4:01 PM EST [facility] Blood, Arterial 10/17/2025 3 :59 PM EST 10/17/2025 4:01 PM EST Vani Winkler MD POINT OF CARE TEST ORDERABLE S Final Result Performing Organization Address City/[facility] Co de Phone Number [facility] [address] [facility]. [address] * (ABNORMAL) POC Chloride (10/17/2025 3:59 PM EST) Pathologist [facility] POC Chloride 111(H) 98 - 110 mmol/L 10/17/2025 4:01 PM EST [facility] Blood, Arterial 10/17/2025 3 :59 PM EST 10/17/2025 4:01 PM EST Vani Winkler MD POINT OF CARE TEST ORDERABLE S Final Result Performing Organization Address City/[facility] Co de Phone Number [facility] [address] [facility]. [address] * (ABNORMAL) POC Hemoglobin (10/17/2025 3:59 PM EST) POC Hemoglobin 9.7(L) 14.0 - 18.0 g/dL 10/17/2025 4:01 PM EST [facility] Blood, Arterial 10/17/2025 3 :59 PM EST 10/17/2025 4:01 PM EST Vani Winkler MD POINT OF CARE TEST ORDERABLE S Final Result [facility] [address] [place] [address]. [address] * (ABNORMAL) POC hematocrit (10/17/2025 3:59 PM EST) POC Hematocrit 29.0(L) 40 - 52 % 10/17/2025 4:01 PM EST [facility] Blood, Arterial 10/17/2025 3 :59 PM EST 10/17/2025 4:01 PM EST Vani Winkler MD POINT OF CARE TEST ORDERABLE S Final Result Performing Organization Address [facility]/ZIP Co de Phone Number [facility] [address] [facility]. [address] * POC Lactate (10/17/2025 3:59 PM EST) Pathologist [facility] POC Lactate 1.77 0.50 - 2.20 mmol/L 10/17/2025 4:01 PM EST [facility] Blood, Arterial 10/17/2025 3 :59 PM EST 10/17/2025 4:01 PM EST Vani Winkler MD POINT OF CARE TEST ORDERABLE S Final Result Performing Organization Address City/[facility]/ZIP Co de Phone Number [facility] [address] [place] [address]. [address] * POC Glucose (10/17/2025 3:59 PM EST) POC Glucose, Arterial 81 70 - 100 mg/dL 10/17/2025 4:01 PM EST [facility] Blood, Arterial 10/17/2025 3 :59 PM EST 10/17/2025 4:01 PM EST Vani Winkler MD POINT OF CARE TEST ORDERABLE S Final Result Performing Organization Address City/[facility]/ZIP Co de Phone Number [facility] [address] [place] [address]. [address] * POC Ionized Calcium (10/17/2025 3:59 PM EST) POC Ionized Calcium 4.90 4.50 - 5.30 mg/dL 10/17/2025 4:01 PM EST [facility] Blood, Arterial 10/17/2025 3 :59 PM EST 10/17/2025 4:01 PM EST Vani Winkler MD POINT OF CARE TEST ORDERABLE S Final Result Performing Organization Address City/[facility] Co de Phone Number [facility] [address] [facility]. [address] * POC Potassium (10/17/2025 3:59 PM EST) POC Potassium 3.7 3.5 - 5.3 mmol/L 10/17/2025 4:01 PM EST [facility] Blood, Arterial 10/17/2025 3 :59 PM EST 10/17/2025 4:01 PM EST Vani Winkler MD POINT OF CARE TEST ORDERABLE S Final Result Performing Organization Address City/[facility]/ZIP Co de Phone Number [facility] [address] [place] [address]. [address] * POC Sodium (10/17/2025 3:59 PM EST) POC Sodium 145 136 - 146 mmol/L 10/17/2025 4:01 PM EST [facility] Blood, Arterial 10/17/2025 3 :59 PM EST 10/17/2025 4:01 PM EST us Vani Winkler MD POINT OF CARE TEST ORDERABLE S Final Result [facility] [address] [facility]. [address] * POC TCO2 (10/17/2025 3:59 PM EST) POC TCO2, Arterial 26 23 - 27 mmol/L 10/17/2025 4:01 PM EST [facility] Blood, Arterial 10/17/2025 3 :59 PM EST 10/17/2025 4:01 PM EST Vani Winkler MD POINT OF CARE TEST ORDERABLE S Final Result Performing Organization Address [facility] Co de Phone Number [facility] [address] * (ABNORMAL) POC O2 SAT (10/17/2025 3:59 PM EST) POC O2 Saturation, Arterial 100(H) 95 - 98 % 10/17/2025 4:01 PM EST [facility] Blood, Arterial 10/17/2025 3 :59 PM EST 10/17/2025 4:01 PM EST Vani Winkler MD POINT OF CARE TEST ORDERABLE S Final Result Performing Organization Address City/[facility]/ZIP Co de Phone Number [facility] [address] [facility]. [address] * POC Base Excess (10/17/2025 3:59 PM EST) POC Base Excess, Arterial -1 -2 - 3 mmol/L 10/17/2025 4:01 PM EST [facility] Blood, Arterial 10/17/2025 3 :59 PM EST 10/17/2025 4:01 PM EST Vani Winkler MD POINT OF CARE TEST ORDERABLE S Final Result [facility] [address] * POC HCO3 (10/17/2025 3:59 PM EST) POC HCO3, Arterial 24 22 - 26 mmol/L 10/17/2025 4:01 PM EST [facility] Blood, Arterial 10/17/2025 3 :59 PM EST 10/17/2025 4:01 PM EST Vani Winkler MD POINT OF CARE TEST ORDERABLE S Final Result [facility] [address] * (ABNORMAL) POC PO2 (10/17/2025 3:59 PM EST) POC pO2, Arterial 213(H) 80 - 100 mm Hg 10/17/2025 4:01 PM EST [facility] Blood, Arterial 10/17/2025 3 :59 PM EST 10/17/2025 4:01 PM EST Vani Winkler MD POINT OF CARE TEST ORDERABLE S Final Result Performing Organization Address City/[facility]/ZIP Co de Phone Number [facility] [address] * POC PCO2 (10/17/2025 3:59 PM EST) POC pCO2, Arterial 45 35 - 45 mm Hg 10/17/2025 4:01 PM EST [facility] Blood, Arterial 10/17/2025 3 :59 PM EST 10/17/2025 4:01 PM EST Vani Winkler MD POINT OF CARE TEST ORDERABLE S Final Result [facility] [address] [facility]. [address] * (ABNORMAL) POC pH (10/17/2025 3:59 PM EST) POC pH, Arterial 7.34(L) 7.35 - 7.45 10/17/2025 4:01 PM EST [facility] Blood, Arterial 10/17/2025 3 :59 PM EST 10/17/2025 4:01 PM EST Result [facility] Vani Winkler MD POINT OF CARE TEST ORDERABLE S Final Result Performing Organization Address City/[facility] Co de Phone Number [facility] [address] [facility]. [address] * (ABNORMAL) POC INR (10/17/2025 3:58 PM EST) Prothrombin Time INR, POC 2.8(H) 0.8 - 1.4 10/18/2025 12:07 AM EST [facility] Comment: Test results may vary using different testing platforms. Serial result monitoring should be performed using the same methodology. RECOMMENDED THERAPEUTIC RANGES USING INR : Stable oral anticoagulant therapy: 2.0 - 3.0 Mechanical prosthetic heart valve: 2.5 - 3.5 Recurrent acute myocardial infarction: 2.5 - 3.5 Blood 10/17/2025 3:58 PM EST 10/18/2025 12:07 AM EST us Vani Winkler MD POINT OF CARE TEST ORDERABLE S Final Result Performing Organization Address [place]/[facility] Co de Phone Number [facility] [address] [facility]. [address] * Transfuse RBC (10/17/2025 3:23 PM EST) Result Neto Munoz MD NURSING TREATMENT ORDERABLES - B LOOD ADMIN Final Result * Transfuse RBC (10/17/2025 3:15 PM EST) Result Neto Munoz MD NURSING TREATMENT ORDERABLES - B LOOD ADMIN Final Result * (ABNORMAL) TEG-Bypass/ECMO/Liver HN (Factor function, Platelet/Fibrin Clot Strength w/Clot Breakdown, Heparinase In All Channels) (10/17/2025 2:55 PM EST) Citrated Kaolin Reaction Time (TEGECMOLIVER) 5.1 4.6 - 9.1 minutes 10/17/2025 4:23 PM EST [facility] Citrated Kaolin W/Heparinase Reaction Time (TEGECMOLIVER) 5.2 4.3 - 8.3 minutes 10/17/2025 4:23 PM EST [facility] Citrated Kaolin Maximum Amplitude (TEGECMOLIVER) <40.0(L) 52.0 - 69.0 mm 10/17/2025 4:23 PM EST [facility] Citrated Functional Fibrinogen W/Heparinase Maximum Amplitude(TEGEC MOLIVER) <6.0(L) 15.0 - 34.0 mm 10/17/2025 4:23 PM EST [facility] Citrated Rapid Teg W/Heparinase Maximum Amplitude (TEGECMOLIVER) 32.8(L) 53.0 - 69.0 mm 10/17/2025 4:23 PM EST [facility] Citrated Kaolin w/Heparinase Percent Lysis (TEGECMOLIVER) 0.0 0.0 - 3.2 % 10/17/2025 4:23 PM EST [facility] Whole Blood (Citrate) 10/17/2025 2:55 PM EST 10/17/2025 3:05 PM EST us Slade Munoz MD LAB BLOOD ORDERABLES Final Resul t Performing Organization Address City/State/[facility] Co de Phone Number [facility] [address] [id number] * (ABNORMAL) CBC (10/17/2025 2:55 PM EST) WBC 4.4 3.8 - 10.8 10E3/uL 10/17/2025 3:20 PM EST [facility] RBC 2.90(L) 4.20 - 5.80 10E6/uL 10/17/2025 3:20 PM EST [facility] Hemoglobin 10.0(L) 13.2 - 17.1 g/dL 10/17/2025 3:20 PM EST [facility] Hematocrit 28.6(L) 38.5 - 50.0 % 10/17/2025 3:20 PM EST [facility] MCV 98.7 80.0 - 100.0 fL 10/17/2025 3:20 PM EST [facility] MCH 34.4(H) 27.0 - 33.0 pg 10/17/2025 3:20 PM EST [facility] MCHC 34.8 32.0 - 36.0 g/dL 10/17/2025 3:20 PM EST [facility] RDW 17.0(H) 11.0 - 15.0 % 10/17/2025 3:20 PM EST [facility] Platelets 53(L) 140 - 400 10E3/uL 10/17/2025 3:20 PM EST [facility] MPV 7.6 7.5 - 11.5 fL 10/17/2025 3:20 PM EST [facility] Whole Blood 10/17/2025 2:55 PM EST 10/17/2025 3:06 PM EST Slade Munoz MD LAB BLOOD ORDERABLES Final Resul t [facility] [address] * (ABNORMAL) Fibrinogen (10/17/2025 2:55 PM EST) Pathologist [facility] Fibrinogen 85(LL) 218 - 406 mg/dL 10/17/2025 3:46 PM EST [facility] Comment:The critical result was called to, and read back by, licensed caregiver CAMI GALEANO MD, AT 1545 Plasma 10/17/2025 2:55 PM EST 10/17/2025 3:06 PM EST Slade Munoz MD LAB BLOOD ORDERABLES Final Resul t [facility] [address] * (ABNORMAL) Protime-INR (10/17/2025 2:55 PM EST) Protime 26.5(H) 12.1 - 15.1 seconds 10/17/2025 3:30 PM EST [facility] INR 2.3(H) 0.9 - 1.1 10/17/2025 3:30 PM EST [facility] Comment: RECOMMENDED THERAPEUTIC RANGES USING INR : Stable oral anticoagulant therapy: 2.0 - 3.0 Mechanical prosthetic heart valve: 2.5 - 3.5 Recurrent acute myocardial infarction: 2.5 - 3.5 Plasma 10/17/2025 2:55 PM EST 10/17/2025 3:06 PM EST Slade Munoz MD LAB BLOOD ORDERABLES Final Resul t [facility] [address] * POC Sample Type (10/17/2025 2:54 PM EST) POC Sample Type Arterial 10/17/2025 3:55 PM EST [facility] Blood, Arterial 10/17/2025 2 :54 PM EST 10/17/2025 3:55 PM EST Vani Winkler MD POINT OF CARE TEST ORDERABLE S Final Result Performing Organization Address [facility] Co de Phone Number [facility] [address] * POC Anion Gap (10/17/2025 2:54 PM EST) POC Anion Gap, Arterial 10 3 - 16 mmol/L 10/17/2025 3:55 PM EST [facility] Blood, Arterial 10/17/2025 2 :54 PM EST 10/17/2025 3:55 PM EST Vani Winkler MD POINT OF CARE TEST ORDERABLE S Final Result Performing Organization Address City/[facility]/ZIP Co de Phone Number [facility] [address] * (ABNORMAL) POC Chloride (10/17/2025 2:54 PM EST) POC Chloride 112(H) 98 - 110 mmol/L 10/17/2025 3:55 PM EST [facility] Blood, Arterial 10/17/2025 2 :54 PM EST 10/17/2025 3:55 PM EST Vani Winkler MD POINT OF CARE TEST ORDERABLE S Final Result [facility] [address] [place] [address]. [address] * (ABNORMAL) POC Hemoglobin (10/17/2025 2:54 PM EST) Pathologist [facility] POC Hemoglobin 8.7(L) 14.0 - 18.0 g/dL 10/17/2025 3:55 PM EST [facility] Blood, Arterial 10/17/2025 2 :54 PM EST 10/17/2025 3:55 PM EST Vani Winkler MD POINT OF CARE TEST ORDERABLE S Final Result Performing Organization Address City/[facility]/ZIP Co de Phone Number [facility] [address] [facility]. [address] * (ABNORMAL) POC hematocrit (10/17/2025 2:54 PM EST) Pathologist [facility] POC Hematocrit 26.0(L) 40 - 52 % 10/17/2025 3:55 PM EST [facility] Blood, Arterial 10/17/2025 2 :54 PM EST 10/17/2025 3:55 PM EST Vani Winkler MD POINT OF CARE TEST ORDERABLE S Final Result Performing Organization Address City/State/[facility] Co de Phone Number [facility] [address] [facility]. [address] * POC Lactate (10/17/2025 2:54 PM EST) POC Lactate 1.23 0.50 - 2.20 mmol/L 10/17/2025 3:55 PM EST [facility] Blood, Arterial 10/17/2025 2 :54 PM EST 10/17/2025 3:55 PM EST Vani Winkler MD POINT OF CARE TEST ORDERABLE S Final Result Performing Organization Address City/[facility]/ZIP Co de Phone Number [facility] [address] [facility]. [address] * POC Glucose (10/17/2025 2:54 PM EST) POC Glucose, Arterial 74 70 - 100 mg/dL 10/17/2025 3:55 PM EST [facility] Blood, Arterial 10/17/2025 2 :54 PM EST 10/17/2025 3:55 PM EST Vani Winkler MD POINT OF CARE TEST ORDERABLE S Final Result Performing Organization Address City/[facility]/ZIP Co de Phone Number [facility] [address] [facility]. [address] * POC Ionized Calcium (10/17/2025 2:54 PM EST) POC Ionized Calcium 4.70 4.50 - 5.30 mg/dL 10/17/2025 3:55 PM EST [facility] Blood, Arterial 10/17/2025 2 :54 PM EST 10/17/2025 3:55 PM EST Vani Winkler MD POINT OF CARE TEST ORDERABLE S Final Result Performing Organization Address City/[facility]/ZIP Co de Phone Number [facility] [address] [facility] * (ABNORMAL) POC Potassium (10/17/2025 2:54 PM EST) POC Potassium 3.2(L) 3.5 - 5.3 mmol/L 10/17/2025 3:55 PM EST [facility] Blood, Arterial 10/17/2025 2 :54 PM EST 10/17/2025 3:55 PM EST Vani Winkler MD POINT OF CARE TEST ORDERABLE S Final Result [facility] [address] [place] [address]. [address] * POC Sodium (10/17/2025 2:54 PM EST) POC Sodium 145 136 - 146 mmol/L 10/17/2025 3:55 PM EST [facility] Blood, Arterial 10/17/2025 2 :54 PM EST 10/17/2025 3:55 PM EST Vani Winkler MD POINT OF CARE TEST ORDERABLE S Final Result Performing Organization Address [facility] Co de Phone Number [facility] [address] [place] [address]. [address] * POC TCO2 (10/17/2025 2:54 PM EST) POC TCO2, Arterial 24 23 - 27 mmol/L 10/17/2025 3:55 PM EST [facility] Blood, Arterial 10/17/2025 2 :54 PM EST 10/17/2025 3:55 PM EST Vani Winkler MD POINT OF CARE TEST ORDERABLE S Final Result Performing Organization Address City/[facility]/ZIP Co de Phone Number [facility] [address] [place] [address]. [address] * (ABNORMAL) POC O2 SAT (10/17/2025 2:54 PM EST) POC O2 Saturation, Arterial 100(H) 95 - 98 % 10/17/2025 3:55 PM EST [facility] Blood, Arterial 10/17/2025 2 :54 PM EST 10/17/2025 3:55 PM EST Vani Winkler MD POINT OF CARE TEST ORDERABLE S Final Result [facility] [address] * POC Base Excess (10/17/2025 2:54 PM EST) POC Base Excess, Arterial -2 -2 - 3 mmol/L 10/17/2025 3:55 PM EST [facility] Blood, Arterial 10/17/2025 2 :54 PM EST 10/17/2025 3:55 PM EST Vani Winkler MD POINT OF CARE TEST ORDERABLE S Final Result Performing Organization Address City/[facility]/ZIP Co de Phone Number [facility] [address] * POC HCO3 (10/17/2025 2:54 PM EST) POC HCO3, Arterial 23 22 - 26 mmol/L 10/17/2025 3:55 PM EST [facility] Blood, Arterial 10/17/2025 2 :54 PM EST 10/17/2025 3:55 PM EST Vani Winkler MD POINT OF CARE TEST ORDERABLE S Final Result Performing Organization Address [facility]/ZIP Co de Phone Number [facility] [address] * (ABNORMAL) POC PO2 (10/17/2025 2:54 PM EST) POC pO2, Arterial 179(H) 80 - 100 mm Hg 10/17/2025 3:55 PM EST [facility] Blood, Arterial 10/17/2025 2 :54 PM EST 10/17/2025 3:55 PM EST Vani Winkler MD POINT OF CARE TEST ORDERABLE S Final Result [facility] [address] * POC PCO2 (10/17/2025 2:54 PM EST) POC pCO2, Arterial 40 35 - 45 mm Hg 10/17/2025 3:55 PM EST [facility] Blood, Arterial 10/17/2025 2 :54 PM EST 10/17/2025 3:55 PM EST Result [facility] Vani Winkler MD POINT OF CARE TEST ORDERABLE S Final Result [facility] [address] [place] [address]. [address] * POC pH (10/17/2025 2:54 PM EST) POC pH, Arterial 7.37 7.35 - 7.45 10/17/2025 3:55 PM EST [facility] Blood, Arterial 10/17/2025 2 :54 PM EST 10/17/2025 3:55 PM EST Result [facility] Vani Winkler MD POINT OF CARE TEST ORDERABLE S Final Result Performing Organization Address City/[facility] Co de Phone Number [facility] [address] [place] [address]. [address] * (ABNORMAL) POC INR (10/17/2025 2:53 PM EST) Prothrombin Time INR, POC 2.4(H) 0.8 - 1.4 10/18/2025 12:07 AM EST [facility] Comment: Test results may vary using different testing platforms. Serial result monitoring should be performed using the same methodology. RECOMMENDED THERAPEUTIC RANGES USING INR : Stable oral anticoagulant therapy: 2.0 - 3.0 Mechanical prosthetic heart valve: 2.5 - 3.5 Recurrent acute myocardial infarction: 2.5 - 3.5 Blood 10/17/2025 2:53 PM EST 10/18/2025 12:07 AM EST Result [facility] Vani Winkler MD POINT OF CARE TEST ORDERABLE S Final Result Performing Organization Address City/[facility]/ZIP Co de Phone Number [facility] [address] * Routine Culture plus Stain (Surgical Swab) (10/17/2025 2:50 PM EST) Gram Stain Result Rare Polymorphonuclear Leukocytes Seen [facility] Gram Stain Result No Organisms Seen; [facility] Culture Result No Growth After 3 Days [facility] Surgical Swab PERITONEAL FLUID / Unknown 10/17/2025 2:50 PM EST Comment:1. Ascites-anaerobic , aerobic, and fungal Narrative [facility] - 10/20/2025 11:09 AM EST 1. Ascites-anaerobic, aerobic, and fungal 1. Ascites-anaerobic, aerobic, and fungal Vani Winkler MD MICROBIOLOGY - GENERAL ORDER MARYA Final Result Performing Organization Address [facility] Co de Phone Number [facility] [address] * Anaerobic culture (Surgical Swab) (10/17/2025 2:50 PM EST) Culture Result No Anaerobes Isolated in 5 Days [facility] Surgical Swab PERITONEAL FLUID / Unknown 10/17/2025 2:50 PM EST Comment:1. Ascites-anaerobic , aerobic, and fungal Narrative [facility] - 10/22/2025 11:32 AM EST 1. Ascites-anaerobic, aerobic, and fungal 1. Ascites-anaerobic, aerobic, and fungal Vani Winkler MD MICROBIOLOGY - GENERAL ORDER MARYA Final Result Performing Organization Address City/[facility] Co de Phone Number [facility] [address] * (ABNORMAL) TEG-Standard Global Hemostasis (Rapid TEG with Heparin Effect, Contains a Baseline TEG) (10/17/2025 10:19 AM EST) Citrated Kaolin Reaction Time (TEGHEPARINASE) 7.2 4.6 - 9.1 minutes 10/17/2025 11:27 AM EST [facility] Citrated Rapid Teg Maximum Amplitude (TEGHEPARINASE) <40.0(L) 52.0 - 70.0 mm 10/17/2025 11:27 AM EST [facility] Citrated Functional Fibrinogen Maximum Amplitude (TEGHEPARINASE) 5.8(L) 15.0 - 32.0 mm 10/17/2025 11:27 AM EST [facility] Citrated Kaolin W/Heparinase Reaction Time (TEGHEPARINASE) 6.7 4.3 - 8.3 minutes 10/17/2025 11:27 AM [facility] Citrated Kaolin K-Time (TEGHEPARINASE) 2.9(H) 0.8 - 2.1 minutes 10/17/2025 11:27 AM [facility] Citrated Kaolin Angle (TEGHEPARINASE) 64.4 63.0 - 78.0 degrees 10/17/2025 11:27 AM [facility] Citrated Kaolin Maximum Amplitude (TEGHEPARINASE) <40.0(L) 52.0 - 69.0 mm 10/17/2025 11:27 AM [facility] Citrated Functional Fibrinogen- Fibrinogen Level (TEGHEPARINASE) 156.5(L) 278.0 - 581.0 mg/dL 10/17/2025 11:27 AM [facility] Whole Blood (Citrate) 10/17/2025 10:19 AM EST 10/17/2025 10:46 AM EST us Kassi INTERIANO LAB BLOOD ORDERABLES Final Re sult [facility] [address] * Hepatitis C RNA, Quant Reflex to Genotyp (10/17/2025 10:19 AM EST) [facility] Signature International Units Not Detected IU/mL 10/19/2025 2:12 PM EST [facility] Comment:Test methodology for HCV RNA quantification is an FDA-approved nucleic acid amplification assay. The Lower Limit of Quantitation (LLOQ) is 15 IU/mL. The linear range of the assay is 15-100,000,000 IU/mL. The Limit of Detection (LoD) is 12.0 IU/mL for EDTA plasma. The reference range is Not Detected. IU log10 See Note log 10 IU/mL 10/19/2025 2:12 PM EST [facility] Comment:HCV RNA not detected . Plasma 10/17/2025 10:1 9 AM EST 10/17/2025 11:09 AM EST Kassi INTERIANO LAB BLOOD ORDERABLES Final Re sult Performing Organization Address City/[facility]/ZIP Co de Phone Number [facility] [address] [place] [address]. [address] * (ABNORMAL) APTT, No Anticoagulant (10/17/2025 10:19 AM EST) aPTT 41.2(H) 25.5 - 35.0 seconds 10/17/2025 11:02 AM EST [facility] Plasma 10/17/2025 10:1 9 AM EST 10/17/2025 10:46 AM EST [facility] BLOOD ORDERABLES Final Re sult Performing Organization Address [facility] Co de Phone Number [facility] [address] [place] [address]. [address] * (ABNORMAL) Fibrinogen (10/17/2025 10:19 AM EST) Fibrinogen 116(L) 218 - 406 mg/dL 10/17/2025 11:08 AM EST [facility] Plasma 10/17/2025 10:1 9 AM EST 10/17/2025 10:46 AM EST [facility] BLOOD ORDERABLES Final Re sult Performing Organization Address City/[facility] Co de Phone Number [facility] [address] [place] [address]. [address] * Magnesium, STAT (10/17/2025 10:18 AM EST) Magnesium 1.7 1.5 - 2.5 mg/dL 10/17/2025 11:46 AM EST [facility] Plasma 10/17/2025 10:1 8 AM EST 10/17/2025 10:46 AM EST Kassi INTERIANO LAB BLOOD ORDERABLES Final Re sult [facility] [address] [facility]. [address] * (ABNORMAL) Jose-Mims Virus VCA IgG Ab (10/17/2025 10:18 AM EST) EBV VCA IgG Positive( A) Negative 10/17/2025 12:18 PM EST [facility] Comment:Presence of detectab le VCA IgG antibodies. A positive result indicates current or past exposure to Jose-Mims virus. EBV IGG NUM >750.00(H ) 0.00 - 17.99 U/mL 10/17/2025 12:18 PM EST [facility] Serum 10/17/2025 10:1 8 AM EST 10/17/2025 10:46 AM EST Kassi INTERIANO LAB BLOOD ORDERABLES Final Re sult Performing Organization Address [facility]/ZIP Co de Phone Number [facility] [address] [facility]. [address] * CMV IgG Antibody (10/17/2025 10:18 AM EST) CMV IgG Negative Negative 10/17/2025 12:16 PM EST [facility] CMV IGG NUM <0.20 0.00 - 0.59 U/mL 10/17/2025 12:16 PM EST [facility] Serum 10/17/2025 10:1 8 AM EST 10/17/2025 10:46 AM EST [facility] LAB BLOOD ORDERABLES Final Re sult [facility] [address] [facility]. [address] * HIV 1+2 Antibody/Antigen with Reflex (10/17/2025 10:18 AM EST) HIV 1+2 AB/AGN Nonreactive Nonreactive 10/17/2025 12:16 PM EST [facility] Serum 10/17/2025 10:1 8 AM EST 10/17/2025 10:46 AM EST Narrative [facility] - 10/17/2025 12:16 PM EST \HIVRNR Kassi INTERIANO LAB BLOOD ORDERABLES Final Re sult [facility] [address] [place] [address]. [address] * Hepatitis B Core Antibody (10/17/2025 10:18 AM EST) Hep B Core Total Ab Nonreactive Nonreactive 10/17/2025 12:17 PM EST [facility] Comment:Health Department no tified in accordance with reportable infectious disease guidelines. Serum 10/17/2025 10:1 8 AM EST 10/17/2025 10:46 AM EST [facility] - 10/17/2025 12:17 PM EST A nonreactive final interpretation indicates that anti-HBc antibodies were not detected in the sample; it is possible that the individual is not infected with HBV. Kassi INTERIANO LAB BLOOD ORDERABLES Final Re sult [facility] [address] [facility]. [address] * Hepatitis C Antibody (10/17/2025 10:18 AM EST) HCV Ab Nonreactive Nonreactive 10/17/2025 12:25 PM EST [facility] Comment:Health Department no tified in accordance with reportable infectious disease guidelines. Serum 10/17/2025 10:1 8 AM EST 10/17/2025 10:[address] [facility] - 10/17/2025 12:25 PM EST Antibodies to HCV not detected; does not exclude the possibility of exposure to HCV. [facility] LAB BLOOD ORDERABLES Final Re sult [facility] [address] * (ABNORMAL) Hepatitis B Surface Antibody, Quantitati (10/17/2025 10:18 AM EST) Hep B S Ab Reactive( A) Nonreactive 10/17/2025 12:29 PM EST [facility] HBSAB NUMBER 260.00(H) 0.00 - 7.99 mIU/mL 10/17/2025 12:29 PM EST [facility] Serum 10/17/2025 10:1 8 AM EST 10/17/2025 10:46 AM EST [facility] - 10/17/2025 12:29 PM EST Individual is considered immune to HBV infection. [facility] BLOOD ORDERABLES Final Re sult Performing Organization Address [facility]/ZIP Co de Phone Number [facility] [address] * Hepatitis B surface antigen (10/17/2025 10:18 AM EST) Hep B Surface Ag Nonreactive Nonreactive 10/17/2025 12:21 PM EST [facility] Comment:Health Department no tified in accordance with reportable infectious disease guidelines. Serum 10/17/2025 10:1 8 AM EST 10/17/2025 10:46 AM EST [facility] - 10/17/2025 12:21 PM EST Specimen is considered negative for HBsAg. [facility] BLOOD ORDERABLES Final Re sult Performing Organization Address City/[facility]/ZIP Co de Phone Number [facility] [address] [facility]. [address] * Hepatitis A Antibody Total (10/17/2025 10:18 AM EST) Anti-HAV Total (IgG + IgM) Reactive 10/17/2025 12:22 PM EST [facility] Serum 10/17/2025 10:1 8 AM EST 10/17/2025 10:46 AM EST Narrative [facility] - 10/17/2025 12:22 PM EST HAV antibodies detected Kassi INTERIANO LAB BLOOD ORDERABLES Final Re sult Performing Organization Address City/[facility]/ZIP Co de Phone Number [facility] [address] [place] [address]. [address] * Vitamin D 25 Hydroxy (10/17/2025 10:18 AM EST) Vit D, 25-Hydroxy 39.3 30.0 - 100.0 ng/mL 10/17/2025 12:15 PM EST [facility] Comment: Vitamin D deficiency has been defined by the [place] of Medicine (IOM) and an Endocrine Society practice guideline as a level of serum 25-OH Vitamin D less than 20 ng/mL. The Endocrine Society went on to further define Vitamin D insufficiency as a level between 21-29 ng/mL. 1) IOM. 2011 Dietary reference intakes for calcium and D. Espinoza D.C: The National Academies Press 2) Ariadna MF, Priya JONES, Taniya GALE, et al. Evaluation, treatment, and prevention of Vitamin D deficiency: an Endocrine Society clinical practice guideline. JCEM. 2010; 96(7):1911-30. Serum 10/17/2025 10:1 8 AM EST 10/17/2025 10:46 AM EST Kassi INTERIANO LAB BLOOD ORDERABLES Final Re sult Performing Organization Address City/[facility] Co de Phone Number [facility] [address] [place] [address]. [address] * Antibody Screen (10/17/2025 10:18 AM EST) Antibody Screen Negative 10/17/2025 11:09 AM EST [facility] Blood 10/17/2025 10:1 8 AM EST 10/17/2025 10:26 AM EST Narrative [facility] - 10/17/2025 11:17 AM EST Testing performed by [facility] Transfusion Service Kassi INTERIANO BLOOD BANK TEST ORDERABLES Fi nal Result [facility] [address] * ABO/Rh (10/17/2025 10:18 AM EST) ABO Grouping A 10/17/2025 10:53 AM EST [facility] Rh Type Positive 10/17/2025 10:53 AM EST [facility] Blood 10/17/2025 10:1 8 AM EST 10/17/2025 10:26 AM EST Kassi INTERIANO BLOOD BANK TEST ORDERABLES Fi nal Result [facility] [address] [facility] * (ABNORMAL) Hepatic Function Panel (10/17/2025 10:18 AM EST) Total Bilirubin 4.9(H) 0.0 - 1.5 mg/dL 10/17/2025 11:47 AM EST [facility] Bilirubin, Direct 1.35(H) 0.00 - 0.40 mg/dL 10/17/2025 11:47 AM EST [facility] AST 39 13 - 39 U/L 10/17/2025 11:47 AM EST [facility] ALT 27 7 - 52 U/L 10/17/2025 11:47 AM EST [facility] Alkaline Phosphatase 143(H) 36 - 125 U/L 10/17/2025 11:47 AM EST [facility] Total Protein 6.5 6.4 - 8.9 g/dL 10/17/2025 11:47 AM EST [facility] Albumin 2.3(L) 3.5 - 5.7 g/dL 10/17/2025 11:47 AM EST [facility] Bilirubin, Indirect 3.55(H) 0.00 - 1.10 mg/dL 10/17/2025 11:47 AM EST [facility] Plasma 10/17/2025 10:1 8 AM EST 10/17/2025 10:46 AM EST us [facility] LAB BLOOD ORDERABLES Final Re sult [facility] [address] [place], [place] [address] * (ABNORMAL) Renal Function Panel w/EGFR (10/17/2025 10:18 AM EST) Sodium 141 133 - 146 mmol/L 10/17/2025 11:47 AM EST [facility] Potassium 3.3(L) 3.5 - 5.3 mmol/L 10/17/2025 11:47 AM [facility] Chloride 110 98 - 110 mmol/L 10/17/2025 11:47 AM [facility] CO2 29 21 - 33 mmol/L 10/17/2025 11:47 AM [facility] Comment:High lactate dehydro genase concentrations in patient samples may cause falsely increased bicarbonate results. If markedly elevated LDH is observed or suspected, please assess results in conjunction with patient`s clinical presentation. In cases of discrepant results, consider evaluating CO2 in with a blood gas order. Anion Gap 2(L) 3 - 16 mmol/L 10/17/2025 11:47 AM EST [facility] BUN 13 7 - 25 mg/dL 10/17/2025 11:47 AM [facility] Creatinine 0.81 0.60 - 1.30 mg/dL 10/17/2025 11:47 AM [facility] Glucose 81 70 - 100 mg/dL 10/17/2025 11:47 AM [facility] Calcium 8.1(L) 8.6 - 10.3 mg/dL 10/17/2025 11:47 AM [facility] Phosphorus 2.8 2.1 - 4.7 mg/dL 10/17/2025 11:47 AM [facility] Albumin 2.3(L) 3.5 - 5.7 g/dL 10/17/2025 11:47 AM EST [facility] Osmolality, Calculated 291 278 - 305 mOsm/kg 10/17/2025 11:47 AM EST [facility] EGFR >90 10/17/2025 11:47 AM EST [facility] Comment: As of 2022, [...] [facility] LAB BLOOD ORDERABLES Final Re sult [facility] [address] * Hemoglobin A1C (10/17/2025 10:18 AM EST) Hemoglobin A1C 4.0 4.0 - 5.6 % 10/17/2025 1:42 PM EST [facility] Comment: Hemoglobin A1c Interpretation Guidelines: Normal: [...] [facility] LAB BLOOD ORDERABLES Final Re sult [facility] [address] [place] [address], [facility] * (ABNORMAL) Venous Blood Gas, Line/Syringe, STAT (10/17/2025 10:18 AM EST) PH-Line Draw 7.37 7.32 - 7.42 10/17/2025 10:27 AM [facility] PCO2-Line Draw 46 41 - 51 mm Hg 10/17/2025 10:27 AM [facility] PO2-Line Draw 29 25 - 40 mm Hg 10/17/2025 10:27 AM [facility] HCO3-Line Draw 24 24 - 28 mmol/L 10/17/2025 10:27 AM [facility] CO2 Content-Line Draw 28 25 - 29 mmol/L 10/17/2025 10:27 AM [facility] Base Excess-Line Draw 0.9 -2.0 - 3.0 mmol/L 10/17/2025 10:27 AM [facility] %HBO2-Line Draw 38.5(L) 40.0 - 70.0 % 10/17/2025 10:27 AM [facility] Carboxyhgb-Rebecca e Draw 1.4 0.0 - 2.0 % 10/17/2025 10:27 AM [facility] Comment: CARBOXYHEMOGLOBIN (CO) REFERENCE RANGES: Non-Smokers: <2 % Smokers: <8 % TOXIC: >20 % Methemoglobin- Line Draw 0.6 0.0 - 1.5 % 10/17/2025 10:27 AM [facility] Blood, Venous 10/17/2025 10: 18 AM EST 10/17/2025 10:24 AM EST [facility]OD ORDER[facility] Final Re sult Performing Organization Address City/[facility]/ZIP Co de Phone Number [facility] [address] * (ABNORMAL) Protime-INR (10/17/2025 10:18 AM EST) Protime 21.7(H) 12.1 - 15.1 seconds 10/17/2025 11:01 AM EST [facility] INR 1.8(H) 0.9 - 1.1 10/17/2025 11:01 AM EST [facility] Comment: RECOMMENDED THERAPEUTIC RANGES USING INR : Stable oral anticoagulant therapy: 2.0 - 3.0 Mechanical prosthetic heart valve: 2.5 - 3.5 Recurrent acute myocardial infarction: 2.5 - 3.5 Plasma 10/17/2025 10:1 8 AM EST 10/17/2025 10:46 AM EST [facility] BLOOD ORDERABLES Final Re sult Performing Organization Address [facility] Co de Phone Number [facility] [address] * (ABNORMAL) Differential (10/17/2025 10:18 AM EST) Neutrophils Relative 45.0 40.0 - 80.0 % 10/17/2025 10:59 AM EST [facility] Lymphocytes Relative 34.7 15.0 - 45.0 % 10/17/2025 10:59 AM EST [facility] Monocytes Relative 12.9(H) 0.0 - 12.0 % 10/17/2025 10:59 AM EST [facility] Eosinophils Relative 6.4 0.0 - 8.0 % 10/17/2025 10:59 AM EST [facility] Basophils Relative 1.0 0.0 - 1.0 % 10/17/2025 10:59 AM EST [facility] nRBC 0 0 - 0 /100 WBC 10/17/2025 10:59 AM EST [facility] Neutrophils Absolute 1,845 1,520 - 8,640 /uL 10/17/2025 10:59 AM EST [facility] Lymphocytes Absolute 1,423 570 - 4,860 /uL 10/17/2025 10:59 AM EST [facility] Monocytes Absolute 529 0 - 1,296 /uL 10/17/2025 10:59 AM EST [facility] Eosinophils Absolute 262 0 - 864 /uL 10/17/2025 10:59 AM EST [facility] Basophils Absolute 41 0 - 108 /uL 10/17/2025 10:59 AM [facility] Whole Blood 10/17/2025 10:1 8 AM EST 10/17/2025 10:46 AM EST us K[facility] LAB BLOOD ORDERABLES Final Re sult [facility] [address] * (ABNORMAL) CBC (10/17/2025 10:18 AM EST) WBC 4.1 3.8 - 10.8 10E3/uL 10/17/2025 10:59 AM [facility] RBC 3.32(L) 4.20 - 5.80 10E6/uL 10/17/2025 10:59 AM [facility] Hemoglobin 11.2(L) 13.2 - 17.1 g/dL 10/17/2025 10:59 AM [facility] Hematocrit 32.9(L) 38.5 - 50.0 % 10/17/2025 10:59 AM [facility] MCV 99.1 80.0 - 100.0 fL 10/17/2025 10:59 AM [facility] MCH 33.8(H) 27.0 - 33.0 pg 10/17/2025 10:59 AM EST [facility] MCHC 34.1 32.0 - 36.0 g/dL 10/17/2025 10:59 AM [facility] RDW 17.3(H) 11.0 - 15.0 % 10/17/2025 10:59 AM [facility] Platelets 61(L) 140 - 400 10E3/uL 10/17/2025 10:59 AM [facility] MPV 8.2 7.5 - 11.5 fL 10/17/2025 10:59 AM EST [facility] Whole Blood 10/17/2025 10:1 8 AM EST 10/17/2025 10:46 AM EST [facility] BLOOD ORDERABLES Final Re sult Performing Organization Address [facility] Co de Phone Number [facility] [address] [facility] * Toxoplasma gondii Antibody, IgG (10/17/2025 10:18 AM EST) Toxoplasma Gondii IgG <3.0 0.0 - 7.1 IU/mL 10/18/2025 4:54 AM EST [facility] Comment: Negative <7.2 Equivocal 7.2 - 8.7 Positive >8.7 Serum 10/17/2025 10:1 8 AM EST 10/18/2025 5:06 AM EST Narrative [facility] - 10/18/2025 5:06 AM EST PERFORMED AT: [facility] [address] [id number] PHONE MANAGER: Mateo Miller, PhD PHONE: [phone] [facility] BLOOD ORDERABLES Final Re sult Performing Organization Address [facility] Co de Phone Number [facility] [address] [facility] * X-ray Portable Chest (10/17/2025 10:11 AM [...] Primary End stage liver disease (CMS-HCC) Immunosuppression (CMS-HCC) documented in this encounter Administered Medications [...] used to treat acetaminophen toxicity? Yes New 10/18/2025 1:18 AM EST 20 g 125 [...] Hepatic Resection/Liver Transplantation, at 100 mL/hr New 10/22/2025 11:19 AM EST 50 mLs 100 mL/hr New 10/22/2025 10:38 AM EST 50 mLs 100 mL/hr AMPicillin 1 g in sodium chloride 0.9% 100 mL IVPB ([id number]) 1 g, Intravenous, at 200 mL/hr, Every 6 hours, First dose on Wed10/17/25 at 2300, For 7 doses, Dosage may need to be adjusted for renal dysfunction. Full dose is 1g IV q6h Use Kybc3Hra Adapter - Mix Thoroughly Before Administration, Post-op New 10/19/2025 8:56 AM EST 1 g 200 mL/ hr New 10/19/2025 3:29 AM EST 1 g 200 [...] 40 mg, Oral, Daily, First dose on 10/22/25 at 0930 Given 10/22/2025 11:08 AM EST 40 mg heparin (porcine) injection 5,000 Units 5,000 Units, Subcutaneous, Every 8 hours scheduled (3 times per day), First dose on Wed10/17/25 at 1000, On hold since Maris 10/18/2025 at 2347 until manually unheld Given 10/18/2025 [...] 4 Units 4 Units, Subcutaneous, Once, On 10/20/25 at [...] On 10/22/25 at 0800, For 1 dose Rate/Dose Verify 10/22/2025 11:00 AM EST 25 mL/hr Rate/Dose Verify 10/22/2025 10:00 AM EST 25 mL/ hr New Bag 10/22/2025 9:19 AM EST 4 g 25 mL/hr magnesium sulfate in sterile water 50 mL IVPB 2 g 2 g, Intravenous, Administer over 120 Minutes, Once, On Maris 10/18/25 at 0130, For 1 dose New Bag [...] 125 mg 125 mg, Intravenous, Once, On Wed10/19/25 at 0900, For 1 dose, POD #2 - Dose. Mix until dissolved and use immediately. MIX THOROUGHLY PRIOR TO ADMINISTRATION., Post-op Given 10/19/2025 8:54 AM EST 125 mg methylPREDNISolone sod suc(PF) (SOLU-medrol) SolR 50 mg 50 mg, Intravenous, Once, On Wed10/21/25 at [...] 30 mg, Oral, Daily, First dose on Wed10/22/25 at 1300, DO NOT CRUSH Given 10/22/2025 [...] 40 mg, Oral, Daily6, First dose on [place]neil 10/21/25 at 0600, Do Not Crush Given 10/22/2025 [...] 5:57 AM EST 50 mL /hr [facility] 10/19/2025 5:35 AM EST 20 mEq 50 mL/hr Rate/Dose Verify 10/19/2025 4:13 AM EST 50 mL/h r potassium chloride (KLOR-CON M20) CR tablet 40 mEq 40 mEq, Oral, Once, On Wed10/21/25 at [...] 20 mg, Oral, Daily, First dose on Wed10/25/25 at 0900, Start daily PO dose on POD #8 predniSONE (DELTASONE) tablet 25 mg 25 mg, Oral, Once, On Wed10/24/25 at 0900, For 1 dose, POD #7 predniSONE (DELTASONE) tablet 30 mg 30 mg, Oral, Once, On Wed10/23/25 at [...] paralyzed: Do not titrate - follow policy [id number]. 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 10/17/2025 10:54 PM EST 0.03 [...] V[place] RN) 0949 (Given - Provider: Charbel Ji RN) albumin human 25% (COMPLETED) 50 mL, Intravenous, [...] Charbel Ji RN)1023 (Paused - Provider: Charbel Ji, SILVIO)1113 (New Bag - Provider: Charbel Ji, SILVIO)1220 (New Bag - Provider: Charbel Ji, RN) furosemide (LASIX) tablet 40 mg 40 [...] Ji RN)1000 (Rate/Dose Verify - Provider: Charbel Ji, RN)1100 (Rate/Dose Verify - Provider: Charbel Ji, RN) methocarbamoL (ROBAXIN) injection 500 mg (CANCELED) [...] RN) 0820 (Given - Provider: Stacy Zamorano, SILVIO)1231 (Given - Provider: Stacy Zamorano RN)1620 (Given - Provider: Stacy Zamorano RN)2002 (Given - Provider: Anne Vail RN) 0843 [...] immediately. MIX THOROUGHLY PRIOR TO ADMINISTRATION., Post-op 09 (Given - Provider: Stacy Zamorano RN) mycophenolate (CELLCEPT) capsule 500 mg 500 mg, Oral, 2 times daily, First dose on 10/20/25 at 0930, LEVEL 2 HAZARDOUS MEDICATION 0933 (Given - Provider: Stacy Zamorano, RN)2013 (Given - Provider: Anne Vail RN) 08 (Given - Provider: Stacy Zamorano RN)2001 (Given - Provider: Anne Vail RN) 0843 (Given - Provider: Charbel Ji, SILVIO) NIFEdipine (PROCARDIA-XL) 24 hr tablet 30 mg [...] mEq (COMPLETED) 40 mEq, Oral, Once, On 10/21/25 at [...] CRUSH or CHEW; TABLET(S) MAY BE SPLIT 08 (Given - Provider: Stacy Zamorano RN) potassium [...] Daily, First dose on 10/20/25 at 2100 2022 (Given - Provider: Anne Vail RN) 0820 (Given - Provider: Stacy Zamorano RN) 0842 (Given - Provider: Charbel Ji RN) tacrolimus (PROGRAF) capsule 2 mg (COMPLETED) 2 mg, Oral, Once, On 10/20/25 at [...] 10/21/25 at 0900, LEVEL 2 HAZARDOUS MEDICATION 0820 (Given - Provider: Stacy Zamorano, RN)2001 (Given - Provider: Anne V[place], RN) 09 (Given - Provider: Charbel Ji, SILVIO) PRN [...] to med 60 mg, Intravenous, Once, On Wed10/20/25 at 0900, For 1 dose, POD # [...] to med 30 mg, Oral, Once, On Wed10/23/25 at [...] documented as of this encounter Care Teams Organic Chemistry Teacher Relationship Specialty Start Date End Date System, Provider Not In PCP - General 09/10/25 10/24/25 documented as of this encounter
--- OUTSIDE RECORDS SUMMARY | 2025-10-17 12:00 | XMS_ITS | Encounter Summary ---
Author Organization [facility] Address [address] [place] [address] Care Team Providers Care Anthropological Linguist Name Role Phone System, Provider Not In [...] release of HIV test results or diagnoses. [id number] Health Reason for Visit * Auth/Cert (Routine) Specialty Diagnoses / Procedures Referred By Contru t Referred To Contact Diagnoses TRANSPLANT LIVER Procedures TRANSPLANT LIVER [facility] PERIOP [address] [place] [address] Phone: tel: Referral ID Status Reason Start Date Expiration Date Visits Re quested Visits Authorized [id number] 1 1 Encounter Details Date Type Department Care Team (Late st Contact Info) Description 10/17/2025 12:00 PM EST - 10/17/2025 8:12 PM EST Surgery [facility] PERIOP [address] [place] [address] Vani Winkler MD [facility] Liver/[place] [id number] TRANSPLANT LIVER Surgery Details Date/Time Status Location [...] living in a retirement (including now)? No 10/17/2025 Utilities Answer Date [...] H&P Complete? Yes 10/17/2025 9:37 AM EST Yvette Navarro RN Family Waiting? Yes 10/17/2025 9:37 AM EST Dirk hrYvette yao RN Pre-Op Antibiotics Given? N/A [...] Clicks Question Answer Date of Assessment Author -[facility] Score - Performed/Achieved 8 Walks 250 feet or more 10/22/2025 12:09 PM Jen Radford, PT * Mobility: AM-PAC/-[facility] Question Answer Date of Assessment Author AM-PAC Mobility Score 17 10/22/2025 12:00 PM Charbel Cheatham RN Translation to [facility] 5 10/22/2025 12:00 PM Charbel Cheatham RN -[facility] Score - Performed/Achieved Goal (Y/N) No 10/22/2025 12:00 PM Charbel Cheatham RN Early Mobility/Exercise Safety Screen (Med/Surg) Proceed with mobilization - No exclusion criteria met 10/22/2025 12:00 PM Charbel Cheatham RN Early Mobility/Exercise Safety Screen (ICU) Proceed with mobilization - No exclusion criteria met 10/22/2025 12:00 PM Charbel Cheatham RN Goal -HLM 5 Standing (1 or mor e minutes) 10/22/2025 12:00 PM Charbel Cheatham RN * Mobility Question Answer Date of Assessment Author Anti-Embolism Devices Bilateral;Sequenti al compression devices, below knee 10/22/2025 12:00 PM Charbel Cheatham RN Anti-Embolism Intervention Off 10/22/2025 12:00 PM Charbel Cheatham RN documented as of this encounter Discharge Summaries * LAISHA Hernandez - 10/22/2025 1:32 PM EST [facility] Inpatient Discharge Summary Patient: David Serrano Age: 65 y.o. CSN: [id number] Date of Admission: 10/17/2025 Date of Discharge: [...] Case IDs Date Procedure Surgeon Location Status [id number] 10/17/25 TRANSPLANT LIVER Vani Winkler MD OR Comp Lines and tubes: Patient Lines/Drains/Airways Status Active LDAs None Other Procedures / Pertinent Imaging: See Imaging Tab Consulting Services (include reason) SICU PT/OT Php Web Developer Allergies Allergies[1] Discharge Medications Medication List TAKE [...] scale: Blood glucose 150-199 mg/dL =1units, Blood cxubtsp950-772 mg/dL =2 units, Blood glucose 250-299 mg/dL =3 units, Blood glucose 300-349 mg/dL =4 units,Blood glucose greater than 349 mg/dL = 5 units Quantity: 15 mL Refills: 2 lancets Mis Use to test blood sugar [...] Your Medications These medications were sent to [facility] [address] [place] [address] Hours: Wednesday - Wednesday: 8:00AM - 6:00PM acetaminophen 325 MG tablet acyclovir 400 MG tablet alcohol swabs Padm blood-glucose meter [facility] calcium-vitamin D 500 mg-5 mcg (200 unit) [...] the following regimen: LDSSI. Patient met w/ parent educator prior to discharge. HEME - Post-operatively, [...] home care (to start 10/29 due to [facility] staffing, outpatient labs this week). Labs to be drawn qMon/Thurs. Patient and family received post-transplant education from helper coordinator as well as medication teaching from [...] Gelatein Plus- clear thickened, gelatin high protein ([facility] and [facility] only) As listed above 4. Discharge specific orders: None required 5. Core measures followed: (if this is a core measure patient) Discharge Weight: 220 lb (99.8 kg) Disposition Home with assistance Home with supervision Home with Home Health Follow-Up Appointments Future Appointments Date Time Provider Department Center 10/30/2025 9:00 AM LTRA SURGERY, [facility] [address] [facility] [address] Signed: LAISHA HERNANDEZ 10/22/2025, 1:32 PM [1] [...] Zimmerman RN - 10/22/2025 12:26 PM EST [facility] Care Management Discharge Summary Patient name: David Serrano Patient : 1960 Age: 65 y.o. Gender: male Patient emergency contact: Extended Emergency Contact Information Primary Emergency Contact: Stacy Serrano [address]: [address] [place] [address] of [place] Relation: Spouse Attending provider: Vani Winkler MD Primary care physician: PROVIDER NOT IN SYSTEM The MD has indicated that the patient is ready for discharge. David Serrano was referred and accepted at [facility] ([phone]) for PT/OT and SN (lab draws) . [...] Services at Home post discharge: Home Health Custodial Health Care Name/Phone # post discharge: [facility] ([phone]) Home Health Services Types at Discharge: PT/OT/POWER ENGINEER, [facility] ([facility] for lab draws.) Citlaly Zimmerman RN/CM [phone] documented in this encounter Discharge Instructions * [...] kept under 2 gm/day. Please discuss withyour international marketing coordinator if you have any question about appropriate dose to take. Other Instructions: Call post-liver transplant clinic with questions [phone] or call [facility] at [phone] and ask for the liver helper coordinator nanoelectronics engineer if you experience any of the following: [...] Date and time as instructed by your helper coordinator in liver transplant clinic in [facility], 3rd floor or Video Visit. PLEASE GET [...] Immunosuppression schedule as per Education Note by helper coordinator earlier this admission. Reviewed discharge medications [...] in clinic? (If significant deficits, communicate with helper coordinator): Standard continual education Future medications to [...] Cori Womack PharmD Solid Organ Transplant Clinical Mop Worker Contact via [employer] * Cori Womack PharmD - 10/22/2025 4:06 [...] Cori Womack PharmD Solid Organ Transplant Clinical Mop Worker Contact via [employer] * Jen Mckeon, PT - 10/22/2025 12:10 PM EST Physical Therapy Treatment Name: David Serrano : 1960 Attending Physician: Vani Winkler MD Admission Diagnosis: TRANSPLANT LIVER Date: 10/22/2025 Room: [place] [address] Reviewed Pertinent hospital course: Yes Hospital Course [...] Long-term goal to be met by: 11/02/25 Custodial Goal : =STG Patient/Family Education Educated patient [...] TRANSPLANT LIVER; Surgeon: Vani Winkler MD; Location: [facility]; Service: Transplant; Laterality: N/A; [1] Patient Active Problem List Diagnosis Alcoholic cirrhosis (CMS-HCC) Ascites Hepatic encephalopathy (CMS-HCC) Esophageal varices (CMS-HCC) Pre-transplant evaluation for chronic liver disease Encounter for pre-transplant evaluation for liver transplant * Leticia Lomeli MD - 10/22/2025 7:07 AM EST Transplant Surgery Progress Note Name: David Serrano CSN: [id number] Date: 10/22/2025 7:07 AM OR Date: 10/17/2025 [...] v discharge LETICIA LOMELI MD Transplant Surgery [facility] Surgery Resident Cosigned by Vani Winkler [...] Surgery Progress Note Name: David Serrano CSN: [id number] Date: 10/21/2025 6:26 AM OR Date: 10/17/2025 [...] Dispo: Floor KEITH JUSTIN MD Transplant Surgery [facility] Surgery Resident Cosigned by Vani Winkler [...] Surgery Progress Note Name: David Serrano CSN: [id number] Date: 10/20/2025 6:42 AM OR Date: 10/17/2025 Subjective 3 Days Post-Op S/p OLT EBL 11L Started TAC yesterday NG removed yesterday, sips of clears Cr elevated 7.1 however stable Objective Vitals: Temp: [97.8 ??F (36.6 ??C)-98.2 ??F (36.8 ??C)] 97.8 ??F (36.6 ??C) Heart Rate: [61-77] 72 Resp: [9-19] 14 BP: (137-163)/(84-101) 162/84 Arterial Line BP: (138-211)/(67-125) 162/79 I/O: Date 10/19/25699 - 10/20/2565810/20/25699 - 10/21/2559 Shift 0604-5434 6576-9401 1336-5468 24 Hour Total 0849-3930 2355-1909 2557-6907 24 Hour Total INTAKE P.O. 100 100 P.O. 100 100 I.V.(mL/kg) 552.9(5.5) 552.9(5.5) Volume (mL) Insulin 7.4 7.4 Volume (mL) (electrolyte-R (pH 7.4) (NORMOSOL-R pH 7.4) IV solution) 545.5 545.5 NG/GT 30 30 Flushes (mL) ([REMOVED] NG/OG Tube Nasogastric Right nostril) 30 30 IV Piggyback 150.3 150.3 Volume (mL) (AMPicillin 1 g in sodium chloride 0.9% 100 mL IVPB (Xroz5Zbx)) 100 100 Volume (mL) (mycophenolate (CELLCEPT) 500 [...] PLT 22* 20* 17* Recent Labs 10/18/25 221910/19/25 0829 10/19/25 2303 NA 146 145 144 K 3.1* 3.6 3.6 CL 113* 113* 110 CO2 BUN 32* 38* 46* CREATININE 1.09 1.16 1.24 GLUCOSE 129* 129* 184* CALCIUM 7.4* 7.2* 7.1* MG 1.8 2.0 2.1 PHOS 4.0 4.0 4.9* Recent Labs 10/17/25 1700 10/17/25 17410/17/25 1823 10/17/25 1926 10/17/25202110/17/25 2125 10/17/25 2247 10/19/25 0828 10/19/25 0951 10/19/25 12210/19/25 1724 10/19/25 23010/20/25 0530 POCGLU 96 77 170* 207* 218* 227* -- -- -- -- -- -- -- POCGMD -- -- -- -- -- -- < > 122* 110* 156* 166* 185* 208* < > = values in this interval not displayed. Recent Labs 10/18/25221910/19/25 0810/19/25 2303 AST 717* 450* 223* ALT 792* [...] later today LETICIA LOMELI MD Transplant Surgery [facility] Surgery Resident Cosigned by Vani Winkler [...] the Caprini Risk Score of 10 and [facility] transplant protocol, I recommend discharging on heparin 5,000 units subcutaneously q8h (facility) or Eliquis 2.5 mg PO BID (home) for 30 days total. Endof chemoprophylaxis: 11/17/25. Cori Womack PharmD Solid Organ Transplant Clinical Mop Worker Contact via [employer] Secure Chat * Leticia Lomeli MD - 10/19/2025 12:10 PM EST Transplant Surgery Progress Note Name: David Serrano CSN: [id number] Date: 10/19/2025 12:10 PM OR Date: 10/17/2025 [...] 0659 10/19/25 0700 - 10/20/25 0659 Shift 5797-5883 1838-2235 0837-1453 24 Hour Total 9000-5756 4812-2987 3010-8977 24 Hour Total INTAKE P.O. 50 50 [...] in sodium chloride 0.9% 100 mL IVPB (Ulwq8Plk)) 100 200 100 400 Volume (mL) (mycophenolate [...] Output (mL) (IUC (Iniguez) 16 Fr.) 570 908 832 7598 260 260 Emesis/NG output 200 200 Drainage [...] : iniguez in place Labs: Recent Labs 10/18/25174610/18/25221910/19/25 0829 WBC 11.8* 11.4* 9.8 HGB 10.0* 9.5* 9.6* HCT 28.3* 26.9* 26.8* PLT 22* 22* 22* Recent Labs 10/18/25174610/18/25221910/19/25 0829 NA 144 146 145 K 3.4* 3.1* 3.6 CL 112* 113* 113* CO2 BUN 29* 32* 38* CREATININE 1.09 1.09 1.16 GLUCOSE 136* 129* 129* CALCIUM 7.5* 7.4* 7.2* MG 1.9 1.8 2.0 PHOS 3.8 4.0 4.0 Recent Labs 10/17/25 1700 10/17/25 17410/17/25 1823 10/17/25 1926 10/17/25 20210/17/25 2125 [...] later today LETICIA LOMELI MD Transplant Surgery [facility] Surgery Resident Cosigned by Vani Winkler [...] Admission Diagnosis: TRANSPLANT LIVER Date: 10/19/2025 Room: [place] [address] [address] Reviewed Pertinent hospital course: Yes Hospital Course [...] will complete lower body dressing: Moderate assistance Custodial Goal : Pt will tolerate a bathing assessment rn long term care goal to be met in: 2 weeks [...] TRANSPLANT LIVER; Surgeon: Vani Winkler MD; Location: [facility]; Service: Transplant; Laterality: N/A; [1] Patient [...] Admission Diagnosis: TRANSPLANT LIVER Date: 10/19/2025 Room: [place] [address] [address] Reviewed Pertinent hospital course: Yes Hospital Course [...] Long-term goal to be met by: 11/02/25 Supervisor Lens Generating Goal : =STG Patient/Family Education Educated patient [...] TRANSPLANT LIVER; Surgeon: Vani Winkler MD; Location: [facility]; Service: Transplant; Laterality: N/A; [1] Patient Active Problem List Diagnosis Alcoholic cirrhosis (CMS-HCC) Ascites Hepatic encephalopathy (CMS-HCC) Esophageal varices (CMS-HCC) Pre-transplant evaluation for chronic liver disease Encounter for pre-transplant evaluation for liver transplant * Leticia Lomeli MD - 10/18/2025 12:58 PM EST Transplant Surgery Progress Note Name: David Serrano CSN: [id number] Date: 10/18/2025 12:58 PM OR Date: 10/17/2025 [...] %-100 %] 40 % I/O: Date 10/17/25 0700 - 10/18/25 0659 10/18/25 0700 - 10/19/25 0659 Shift 6963-9554 6723-4963 8769-2966 24 Hour Total 8756-4564 0372-6259 6158-1909 24 Hour Total INTAKE I.V.(mL/kg) 8000(80.2) 394.1(3.9) [...] 30 60 30 30 IV Piggyback 120 733 498 9606 62.6 62.6 Volume (mL) (methylPREDNISolone sodium succinate (SOLU-medrol) 500 mg in sodium chloride 0.9 % 100 mL IVPB) 100 100 Volume (mL) (AMPicillin 2 g in sodium chloride 0.9% 100 mL IVPB (Vvxx1Oil)) 100 200 300 Volume (mL) (albumin human bottle 5%) 500 500 Volume (mL) (albumin human bottle 25%) 50 50 Volume (mL) (AMPicillin 1 g in sodium chloride 0.9% 100 mL IVPB (Tsgv6Cdr)) 97.4 97.4 Volume (mL) (mycophenolate (CELLCEPT) 500 [...] IV Push) 20 20 Shift Total(mL/kg) 120(1.2) 70936(138.6) 1105.1(11.1) 36355.1(150.9) 143.4(1.4) 143.4(1.4) OUTPUT Urine(mL/kg/hr) 1850(2.3) 1000(1.3) 2850(1.2) [...] 2 Abdomen Inferior;Lateral;Left) 100 300 400 Blood 75392 79093 Est Blood Loss 67129 88164 Shift Total(mL/kg) 60295(130.5) 1550(15.5) 15969(146.1) 355(3.6) 355(3.6) Weight (kg) 99.8 99.8 99.8 [...] EXAM: US ABDOMEN LIMITED EXAM: US DUPLEX HBR-KVVAAE-ALRCAKG COMPLETE INDICATION: Post-op liver transplant Day 1 [...] at 10/18/2025 9:53 AM EST US Duplex Jik-Voj-Blsbqsb Comp Result Date: 10/18/2025 EXAM: US ABDOMEN LIMITED EXAM: US DUPLEX YUC-BZYPHI-JWNYABG COMPLETE INDICATION: Post-op liver transplant Day 1 [...] below level of diaphragms and outside the wyehe-fc-hrwh. Right internal jugular approach pulmonary artery catheter [...] Dispo: SICU LETICIA LOMELI MD Transplant Surgery [facility] Surgery Resident Cosigned by Vani Winkler [...] Cori Womack PharmD Solid Organ Transplant Clinical Mop Worker Contact via [employer] Secure Chat * Karen Washington, LOOM CHANGEOVER OPERATOR - 10/18/2025 5:32 AM EST SBT started at 0435 completed at 0520 Patient on +5 and 40% RR: 7-12 Vt: 679-940 RSBI: 10-12 AB.34/48/84/25 Patient placed on Delta 5 post SBT documented in this encounter H&P Notes * Aspen Parr MD - 10/17/2025 10:27 AM EST Transplant Surgery History and Physical Patient: David Serrano CSN: [id number] History CC: ESLD HPI: David Serrano is [...] Low Risk (06/15/2025) Received from [facility] Overall Financial Resource Strain (CARDIA) How hard is it for you to pay for the very basics like food, housing, medical care, and heating?: Not hard at all Food Insecurity: No Food Insecurity (06/15/2025) Received from [facility] Hunger Vital Sign Within the past 12 months, you worried that your food would run out before you got the money to buymore.: Never true Within the past 12 months, the food you bought just didn't last and you didn't have money to get more.: Never true Transportation Needs: No Transportation Needs (06/15/2025) Received from [facility] PRAPARE - Transportation In the past 12 months, has lack of transportation kept you from medical appointments or from getting medications?: No In the past 12 months, has lack of transportation kept you from meetings, work, or from getting things needed for daily living?: No Physical Activity: Inactive (06/15/2025) Received from [facility] Exercise Vital Sign On average, how many days per week do you engage in moderate to strenuous exercise (like a brisk walk)?: 0 days On average, how many minutes do you engage in exercise at this level?: 0 min Stress: No Stress Concern Present (06/15/2025) Received from [facility] [place] of Occupational Health - Occupational Stress Questionnaire Do you feel stress - tense, restless, nervous, or anxious, or unable to sleep at night because yourmind is troubled all the time - these days?: Only a little Social Connections: Socially Integrated (06/15/2025) Received from [facility] Social Connection and Isolation Panel In a typical week, how many times do you talk on the phone with family, friends, or neighbors?: More than three times a week How often do you get together with friends or relatives?: More than three times a week How often do you attend taoist or jehovah's witness services?: More than 4 times per year Do you belong to any clubs or organizations such as taoist groups, unions, fraternal [...] Low Risk (06/15/2025) Received from [facility] Housing Stability Vital Sign In the last 12 months, was there a time when you were not able to pay the mortgage or rent on time?: No In the past 12 months, how many times have you moved where you were living?: 0 At any time in the past 12 months, were you homeless or living in a retirement (including now)?: No FH: No family history [...] admitted to SICU post-op. ASPEN PARR MD [facility] Surgery Liver Transplant Pager: [phone] 10:28 AM 10/17/2025 Cosigned by Vani [...] Name: David Serrano Date: 1960 Billing #: [id number] Date of Procedure: 10/17/2025 Diagnosis: Chronic Hepatic [...] branch patch. Ligation of left renal vein. Fztg-lj-srzd anastomosis performed without stent. Portal Flow Modulation [...] donor was ABO O and UNOS ID [id number], [place] [id number]. This was a 56 yearold brain donor [...] of available help, Dr. Nugent served as spa assistant manager surgeon. Procedure: Back bench preparation of donor [...] After completion of the outflow anastomosis, a Belarusian clamp was placed across the donor suprahepatic [...] no further bleeding, we then performed a wwry-if-zpka anastomosis. There was no stent placed. This [...] Name: David Serrano Date: 1960 Billing #: [id number] Date of Procedure: 10/17/2025 Diagnosis: Chronic Hepatic Failure without coma Procedure: 1. Back Bench Preparation Donor Liver Attending surgeons: Felice Nugent III, MD Sausage Linker Surgeon(s): Morena Haley MD Indications for Procedure: This is a 65 y.o.-year-old male who has alcohol and A1AT liver disease and chronic liver failure complicated by ascites and HE with a MELD score of 20. A donor organ became available. This donor was ABO O and UNOS ID [id number], [place] [id number]. This was a 56 yearold brain donor [...] MD Giulia Bencini, MD Anesthesia: General Staff: Eyeglass Lens Grinder: Mita Hernandez RN; Aspen Coleman RN Relief Eyeglass Lens Grinder: Claritza Mckinnon RN; Jonatan De La O, RN; Clair Sanders RN Scrub Person: Samson Mcbride RN Fellow: Chelsie Haley MD Float: Nadia Woodruff, SILVIO; Jyotsna Singleton, SILVIO; Farzana Hamilton; Lizz Cota RN Resident: Aspen Parr MD Estimated Blood Loss: 11 L Specimens: [place] liver and gallbladder Left liver core needle biopsy Right liver core needle biopsy Peritoneal fluid for culture Drains: Drain 1 Abdomen Inferior;Lateral;Right (Active) Number of days: 0 Drain 2 Abdomen Inferior;Lateral;Left (Active) Number of days: 0 IUC (Iniguez) 16 Fr. (Active) Number of days: 0 Transplant-Specific Information UNOS ID: [id number] Cross-clamp: 10/17/25 1250 Out of ice: 10/17/25 [...] 1:42 PM ESTAssociated Order(s): IP CONSULT TO COMPUTING ARCHITECT [facility] Transplant Discharge Education Note Assessment: [...] 4 - Demonstrates understanding/competency Naomy Gomes RN, MSN,[facility] Diabetes Education Office [phone] Schedule: M-F 8:00am-4:30pm * Oskar Arango, RD - 10/22/2025 9:08 AM EST TXP - Follow-up [facility] Medical Nutrition Therapy Reason(s) for [...] Gelatein Plus- clear thickened, gelatin high protein ([facility] only) PO Meal Intake: Pt currently not taking any PO Appetite: [place] Estimated Nutrition Needs This Admission: No Feeding: Able to feed self Estimated Nutrition Needs (needs based on DBW of 70.4 kg) Kcals/day: 7936-3949 (25-30 kcal/kg) Protein g/day: 105-140 (1.5-2.0 g/kg) [...] TRANSPLANT LIVER; Surgeon: Vani Winkler MD; Location: [facility]; Service: Transplant; Laterality: N/A; Scheduled Meds: [...] Dietitian - Solid Organ Transplant Contact via [employer] Chat [1] Allergies Allergen Reactions Lisinopril Other (See Comments) * Citlaly Zimmerman RN - 10/19/2025 1:50 PM EST HEALTH Care Management/Social Work Assessment Patient Information Patient Name: David Serrano Hospital Day: 2 Inpatient/Observation: Inpatient Admit Date: 10/17/2025 Admission Diagnosis: TRANSPLANT LIVER Attending provider: Vani Winkler MD PCP: PROVIDER NOT IN SYSTEM Home Pharmacy: [facility] - [place], [place] - [address] [place] [address] [facility] [address] [facility] [address] [facility] [address] [facility] [address] [facility] [address] [facility] [address] Pertinent Medications Anticoagulation therapy: Yes Anticoagulant (Name [...] children and their names: Stanley- Lan Serrano ([phone]) and Gloria Makenzie ([phone]) Relative Search Completed: Yes Demographics Correct:: Yes [...] No Status & Connection to [facility] Services [place] Status & Connection to VA Services Are you a ?: No Support Systems Emergency contact: Extended Emergency Contact Information Primary Emergency Contact: KieshaStacy Address: [address] [place] [address] Mobile Relation: Spouse Support Systems Legal Status: HCPOA Name of Guardian/POA/ Payee and Phone Number: Stacy Serrano ([phone]) Primary Caregiver: Self, Spouse Caregiver name/phone number: Stacy Serrano ([phone]) Times of available support: Total 24/7 hands on (add comment) (Daughter and Friend willing to assist in pt post op care.) Marital Status: Number of children and their names: 1- Lan Serrano ([phone]) and Gloria Arredondoford ([phone]) Relative Search Completed: Yes Demographics Correct:: Yes [...] living with spouse in a home in [place], [place]. Pt reports ~2 steps into residence and 0 inside residence. Pt reports having 2 children- Lan Serrano ([phone]) and Gloria Arredondoford ([phone]). Pt denies any concerns for safety or [...] Stacy Serrano. LNOK and HCPOA: Stacy Marley ([phone]) PCP: Myles Mosley Transportation: family Advance Directives (For Healthcare) Advance Directive: Patient has advance directive, copy in chart Type of Healthcare Directive: Durable power of energy attorney for health care Healthcare Agent Appointed: Yes Healthcare Agent's Name: Stacy Serrano Healthcare Agent's Pre-existing DNR/DNI Order: No Patient Requests Assistance: No Discharge Plan Met with patient to initiate discussion regarding discharge planning. Introduced self and role of case management/social work and provided contact information. Anticipated Discharge Plan: Home with [facility] Anticipated Discharge Date: 10/22/2025 Anticipated [...] 550 mg BID 24 hour events: - [place] removed, introducer remains - Extubated to [place], now room air - NG pulled on [...] MD; Location: OR; Service: Transplant; Laterality: N/A; Home Medications Medication [...] ratio: No PaO2 result within 12 hours. [place] body weight: [place] body weight: 63.8 kg (140 lb 10.5 [...] ml IVF: electrolyte, Last Rate: 75 mL/hr (10/19/25556) insulin regular in 0.9 % sodium chloride, Last Rate: 3 Units/hr (10/19/25556) A/P: Fluids: Normosol at 75/hr #Electrolyte derangements - Manual replacements - Q12 labs per protocol - K replaced RENAL Labs: Recent Labs 10/17/25224910/18/25 05010/18/25112010/18/25174610/18/250 NA 145 146 146 144 146 BUN [...] A/P: No active issues. HEMATOLOGIC Labs: Lab 10/18/25221910/18/25174610/18/25 11210/18/25 05010/17/25 2250 HEMATOCRIT 26.9* 28.3* 29.0* 27.6* 27.5* HEMOGLOBIN 9.5* 10.0* 10.2* 9.6* 9.5* PLATELETS 22* 22* 29* 36* 52* Lab 10/18/25221910/18/25 17410/18/25 11210/18/25 0502 10/17/25 2250 INR 1.8* 1.8* 2.0* 2.2* 2.1* Lab 10/17/25 22510/17/25203010/17/25 1839 10/17/25 1656 10/17/25 1455 FIBRINOGEN LEVEL [...] in sodium chloride 0.9% 100 mL IVPB (Stcw8Kom) 1 g Every 6 hours 10/17/2025 10/19/2025 Admin Instructions: Dosage may need to be adjusted for renal dysfunction. Full dose is 1g IV q6h Use Lifr3Jrq Adapter - Mix Thoroughly Before Administration Notes to Pharmacy: On order packer or packager estimated creatinine clearance is 101.9 mL/min (based [...] iniguez PT/OT: pending. PT Recs: OT Recs: POWER ENGINEER Recs: Dispo: Remain in SICU EVELYN GALINDO [...] Pre-op MELD 20. Intra-operative course notable for zrzdivijjw4G ascites. EBL 11L, received 03/19/01/15, 2.4L cell-saver, [...] SATURATION ARTERIAL 97 100 PF ratio: 210 Washburn body weight: Washburn body weight: 63.8 kg (140 lb 10.5 [...] 10/18/2025 0700 Gross per 24 hour Intake 29164.44 ml Output 52128 ml Net 472.44 ml IVF: acetylcysteine (ACETADOTE) 200 mg/mL (20 %) 10 g in sodium chloride 0.45% (1/2 NS) 1,000 mL infusion, Last Rate: 10 g (10/18/25 0516) fentanyl (SUBLIMAZE) IV infusion, Last Rate: 75 mcg/hr (10/17/252257) insulin regular in 0.9 % sodium chloride, Last Rate: 9 Units/hr (10/18/25 07) norepinephrine, Last Rate: Stopped (10/18/25 05) propofol, Last Rate: 7.5 mcg/kg/min (10/18/25 07) [...] interval not displayed. Lab 10/18/25 0502 10/17/25 22510/17/25212310/17/25202003/25 1925 INR POC -- -- 2.3* 2.9* [...] 10/17/25 2355 10/17/25 2250 10/17/25 2247 10/17/255 10/17/25 20210/17/25 1926 10/17/25 1823 10/17/25 1742 [...] in sodium chloride 0.9% 100 mL IVPB (Ooum7Zjr) 1 g Every 6 hours 10/17/2025 10/19/2025 Admin Instructions: Dosage may need to be adjusted for renal dysfunction. Full dose is 1g IV q6h Use Ewrz8Xvl Adapter - Mix Thoroughly Before Administration Notes to Pharmacy: On order packer or packager estimated creatinine clearance is 101.9 mL/min (based on SCr of 0.81 mg/dL). Route: Intravenous Linked Group 1: Placed in And Linked Group AMPicillin 2 g in sodium chloride 0.9% 100 mL IVPB (Ihbo9Kvh) (Completed) 2 g Once 10/17/2025 10/17/2025 Admin Instructions: Begin infusion 20-60 minutes prior to incision Use Vklq4Emw Adapter - Mix Thoroughly Before Administration Notes to Pharmacy: On order packer or packager estimated creatinine clearance is 98.3 mL/min (based [...] 1 PT/OT: pending. PT Recs: OT Recs: POWER ENGINEER Recs: Dispo: Remain in SICU. DUARTE EL [...] Pre-op MELD 20. Intra-operative course notable for gdwoxmmxjw5Z ascites. EBL 11L, received 03/19//, 2.4L cell-saver, [...] H20] 5 cm H20 - passed SBT: 7.34/48// CXR reviewed - ETT well-positioned, no significant [...] 10/18/2025 0758 Gross per 24 hour Intake 19140.34 ml Output 11821 ml Net 484.34 ml SKIN/MUSCULOSKELETAL: No acute [...] CONSULT TO NUTRITION SERVICES TXP - Initial [facility] Medical Nutrition Therapy Reason(s) for [...] based on DBW of 70.4 kg) Kcals/day: 8750-7276 (25-30 kcal/kg) Protein g/day: 105-140 (1.5-2.0 g/kg) [...] Labs: Recent Labs 10/17/25 1839 10/17/25 1926 10/17/255 10/17/25 2250 10/18/25 0502 WBC 4.8 -- [...] Dietitian - Solid Organ Transplant Contact via [employer] Chat [1] Allergies Allergen Reactions Lisinopril Other [...] O2 SATURATION ARTERIAL 100 PF ratio: 270 Washburn body weight: Washburn body weight: 63.8 kg (140 lb 10.5 [...] 2315 4 mmHg 14/1010/17/25 2300 7 mmHg 25 2240 5 mmHg 11/11 Vitals: Temp: [97.1 [...] 10/17/2025 2300 Gross per 24 hour Intake 98184.34 ml Output 52755 ml Net 840.34 ml IVF: fentanyl (SUBLIMAZE) [...] in sodium chloride 0.9% 100 mL IVPB (Ihlt3Bij) 1 g Every 6 hours 10/17/2025 10/19/2025 Admin Instructions: Dosage may need to be adjusted for renal dysfunction. Full dose is 1g IV q6h Use Tpwr8Vba Adapter - Mix Thoroughly Before Administration Notes to Pharmacy: On order packer or packager estimated creatinine clearance is 101.9 mL/min (based on SCr of 0.81 mg/dL). Route: Intravenous Linked Group 1: Placed in And Linked Group AMPicillin 2 g in sodium chloride 0.9% 100 mL IVPB (Suvy7Riw) (Completed) 2 g Once 10/17/2025 10/17/2025 Admin Instructions: Begin infusion 20-60 minutes prior to incision Use Lzpl2Raf Adapter - Mix Thoroughly Before Administration Notes to Pharmacy: On order packer or packager estimated creatinine clearance is 98.3 mL/min (based [...] Best Verbal Response: 5,Best Motor Response: 6 [place] Coma Scale Score: 15 No data found. [...] 1 PT/OT: pending. PT Recs: OT Recs: POWER ENGINEER Recs: Dispo: Remain in SICU. DUARTE EL [...] Patient will remain free of falls Goal: Coleman Fall Precautions Outcome: Adequate for Discharge Problem: [...] intervention. Outcome: Adequate for Discharge Problem: Non-violent, fiq-uqoh-oxshpyaxfwt restraints Description: Less restrictive alternative interventions will [...] protection of medical procedures, or protection of bilingual medical assistant access. Outcome: Adequate for Discharge Problem: Knowledge [...] 1960 Age: 65 y.o. Gender: male SSN: [id number] [address]: [address] [place] [address] [place] [address] Phone number: [phone] Patient emergency contact: Extended Emergency Contact Information Primary Emergency Contact: Stacy Serrano Address: [address] [place] [address] [address] [place] Relation: Spouse Date of admission: 10/17/2025 Date of discharge: 10/22/2025 Attending provider: Lane Troy MD Primary care physician: PROVIDER NOT IN SYSTEM Code status: Full Code Allergies: Allergies[1] Insurance Information Insurance Information [employer] Phone: -- Subscriber: David Serrano Subscriber#: [id number] Group#: [id number] Precert#: -- Authorization#: [id number] Effective Date: -- TRANS[employer] Phone: -- Subscriber: David Serrano Subscriber#: [id number] Group#: -- Precert#: -- Authorization#: [id number] Effective Date: -- Diagnoses Present on Admission [...] Gelatein Plus- clear thickened, gelatin high protein ([facility] and [facility] only) Regular Diet Services Required Mcfp: vital signs, med management, lab draws Physical [...] scale: Blood glucose 150-199 mg/dL =1units, Blood qevpzvb137-155 mg/dL =2 units, Blood glucose 250-299 mg/dL [...] Your Medications These medications were sent to [facility] [address] [facility] [address] Hours: Wednesday - Wednesday: 8:00AM - 6:00PM [...] level (prior to am tacro dose) every starting 10/29. Fax results to liver transplant clinic at [phone]. NURSE VISIT: Please check vitals and assess/monitor [...] effort and are for medical reasons or jehovah's witness services or infrequently or short duration when for other reasons) due to deconditioning it would be a taxing effort to receive outpatient services. My signature below is to certify that this patient is under my care and that I, or nurse practitioner, or a physician spa assistant manager working with me, had a lkbu-op-lxoi encounter with this is patient on: 10/22/2025 Follow-up Appointments and Post Hospital Discharge Physician Name Future Appointments Date Time Provider Department Center 10/30/2025 9:00 AM [facility] SURGERY, [facility] [address] [facility] [address] Discharging Physician Signature and Credentials Discharging Physician: Electronically signed by LAISHA HERNANDEZ 10/22/2025, 1:32 PM Physician to follow up Information PCP: PROVIDER NOT IN SYSTEM PCP address: None PCP phone number: None PCP fax number: None Follow-up: [facility] and their phone / fax is: [phone] / [phone] Ophthalmic Photographer and Credentials Provider/Company Name and Contact Number: Community Services at Discharge Community Services at Home post discharge: Home Health [facility] Name/Phone # post discharge: [facility] ([phone]) Home Health Services Types at Discharge: PT/OT/POWER ENGINEER, Mcfp (mcfp for lab draws.) Ophthalmic Photographer Name and Telephone Number: Citlaly Bishop RN/CM [phone] [1] Allergies Allergen Reactions Lisinopril Other (See [...] to patients area and insurance. Kamlesh Sanchez Exhibits Coordinator [employer]er Care Management Services [phone] * Plan of Care - Evelyn Galindo [...] Bush RN - 10/18/2025 3:55 PM EST [facility] Case Management/Social Work Department Progress [...] PCP: PROVIDER NOT IN SYSTEM Home Pharmacy: [facility] - [place] - [address] [place] [address] [facility] [address] [facility] [address] [facility] [address] [facility] [address] [facility] [address] [facility] [address] Medical Insurance Coverage: Payor: [employer] / Plan: [...] discharge planning needs. TAMIA BUSH RN Cell [phone] * Plan of Care - Angela Tamez [...] Patient will remain free of falls Goal: Coleman Fall Precautions Outcome: Progressing Problem: Daily Care [...] pain management intervention. Outcome: Progressing Problem: Non-violent, zlh-rkiq-dfekwwgopew restraints Description: Less restrictive alternative interventions will [...] protection of medical procedures, or protection of bilingual medical assistant access. Outcome: Progressing Problem: Knowledge Deficit Goal: [...] Patient will remain free of falls Goal: Coleman Fall Precautions Outcome: Progressing Problem: Daily Care [...] pain management intervention. Outcome: Progressing Problem: Non-violent, dem-sgyf-ombohqbhizw restraints Description: Less restrictive alternative interventions will [...] protection of medical procedures, or protection of bilingual medical assistant access. Outcome: Progressing Patient in bilateral soft [...] Priority Date/Time Associated Diagnosis Comments US DUPLEX HCN-UTJDZO-IUSBBRN COMPLETE STAT 10/22/2025 10:24 AM EST US [...] Routine 10/18/2025 10:29 AM EST US DUPLEX YAW-KGRASE-LTVDZIU COMPLETE STAT 10/18/2025 9:35 AM EST US [...] in this encounter Results * US Duplex Nvn-Mww-Fhajzbi Comp (10/22/2025 10:24 AM EST) Anatomical Region [...] EXAM: US ABDOMEN COMPLETE EXAM: US DUPLEX [id number]-TDLXPL-BXKGGIZ COMPLETE INDICATION: Post-op liver transplant DATE: 10/22/2025 [...] EXAM: US ABDOMEN COMPLETE EXAM: US DUPLEX OPR-NJQDHT-WDYWVMC COMPLETE INDICATION: Post-op liver transplant DATE: 10/22/2025 [...] 12:02 PM EST us Leticia Lomeli MD [facility] US ORDERABLES Final Resul t * US [...] EXAM: US ABDOMEN COMPLETE EXAM: US DUPLEX VRY-VPNNZO-LOHRVPG COMPLETE INDICATION: Post-op liver transplant DATE: 10/22/2025 [...] EXAM: US ABDOMEN COMPLETE EXAM: US DUPLEX IPZ-MVNYAQ-[id number] COMPLETE INDICATION: Post-op liver transplant DATE: 10/22/2025 [...] - 100 mg/dL 10/22/2025 10:24 AM EST [facility] Blood 10/22/2025 10:2 3 AM EST 10/22/2025 10:23 AM EST Vani Winkler MD POINT OF CARE TEST ORDERABLE S Final Result [facility] [address] * Tacrolimus level (10/22/2025 9:48 AM EST) Tacrolimus (LC-MS) 4.0 3.0 - 15.0 ng/mL 10/22/2025 12:57 PM EST [facility] Comment:Performed via liquid chromatography tandem mass spectrometry. Detection limit: 1 ng/mL. Individual target concentrations may vary due to target organ and time after transplant. This test has been developed and its performance characteristics determined by [facility] which is certified under [...] MD LAB BLOOD ORDERABLES Final Re sult [facility] [address] [facility]. [address] * Phosphorus (10/22/2025 5:28 AM EST) Phosphorus 2.3 2.1 - 4.7 mg/dL 10/22/2025 6:20 AM EST [facility] Plasma 10/22/2025 5:28 AM EST 10/22/2025 5:42 AM EST Aspen Parr MD LAB BLOOD ORDERABLES Final Resul t Performing Organization Address City/[facility]/ZIP Co de Phone Number [facility] [address] [facility]. [address] * Magnesium (10/22/2025 5:28 AM EST) Magnesium 1.7 1.5 - 2.5 mg/dL 10/22/2025 6:20 AM EST [facility] Plasma 10/22/2025 5:28 AM EST 10/22/2025 5:42 AM EST Aspen Parr MD LAB BLOOD ORDERABLES Final Resul t Performing Organization Address [facility] Co de Phone Number [facility] [address] * (ABNORMAL) CBC (10/22/2025 5:28 AM EST) WBC 6.6 3.8 - 10.8 10E3/uL 10/22/2025 5:48 AM EST [facility] RBC 2.84(L) 4.20 - 5.80 10E6/uL 10/22/2025 5:48 AM EST [facility] Hemoglobin 9.3(L) 13.2 - 17.1 g/dL 10/22/2025 5:48 AM EST [facility] Hematocrit 26.4(L) 38.5 - 50.0 % 10/22/2025 5:48 AM EST [facility] MCV 92.8 80.0 - 100.0 fL 10/22/2025 5:48 AM EST [facility] MCH 32.8 27.0 - 33.0 pg 10/22/2025 5:48 AM EST [facility] MCHC 35.4 32.0 - 36.0 g/dL 10/22/2025 5:48 AM EST [facility] RDW 16.0(H) 11.0 - 15.0 % 10/22/2025 5:48 AM EST [facility] Platelets 22(L) 140 - 400 10E3/uL 10/22/2025 5:48 AM EST [facility] Comment: CNV Specimen checked for clots. None detected. MPV 9.1 7.5 - 11.5 fL 10/22/2025 5:48 AM EST [facility] Whole Blood 10/22/2025 5:28 AM EST 10/22/2025 5:42 AM EST us Aspen Parr MD LAB BLOOD ORDERABLES Final Resul t Performing Organization Address City/State/[facility] Co de Phone Number [facility] [address] * (ABNORMAL) Hepatic Function Panel (10/22/2025 5:28 AM EST) Total Bilirubin 1.0 0.0 - 1.5 mg/dL 10/22/2025 6:20 AM EST [facility] Bilirubin, Direct 0.28 0.00 - 0.40 mg/dL 10/22/2025 6:20 AM [facility] AST 42(H) 13 - 39 U/L 10/22/2025 6:20 AM [facility] ALT 270(H) 7 - 52 U/L 10/22/2025 6:20 AM [facility] Alkaline Phosphatase 84 36 - 125 U/L 10/22/2025 6:20 AM EST [facility] Total Protein 4.3(L) 6.4 - 8.9 g/dL 10/22/2025 6:20 AM EST [facility] Albumin 2.1(L) 3.5 - 5.7 g/dL 10/22/2025 6:20 AM EST [facility] Bilirubin, Indirect 0.72 0.00 - 1.10 mg/dL 10/22/2025 6:20 AM EST [facility] Plasma 10/22/2025 5:28 AM EST 10/22/2025 5:42 AM EST us Aspen Parr MD LAB BLOOD ORDERABLES Final Resul t [facility] [address] [place] [address], [facility] * (ABNORMAL) Basic metabolic panel (10/22/2025 5:28 AM EST) Sodium 138 133 - 146 mmol/L 10/22/2025 6:20 AM EST [facility] Potassium 3.2(L) 3.5 - 5.3 mmol/L 10/22/2025 6:20 AM EST [facility] Chloride 107 98 - 110 mmol/L 10/22/2025 6:20 AM EST [facility] CO2 25 21 - 33 mmol/L 10/22/2025 6:20 AM EST [facility] Comment:High lactate dehydro genase concentrations in patient samples may cause falsely increased bicarbonate results. If markedly elevated LDH is observed or suspected, please assess results in conjunction with patient`s clinical presentation. In cases of discrepant results, consider evaluating CO2 in with a blood gas order. Anion Gap 6 3 - 16 mmol/L 10/22/2025 6:20 AM EST [facility] BUN 25 7 - 25 mg/dL 10/22/2025 6:20 AM EST [facility] Creatinine 0.81 0.60 - 1.30 mg/dL 10/22/2025 6:20 AM EST [facility] Glucose 100 70 - 100 mg/dL 10/22/2025 6:20 AM EST [facility] Calcium 6.8(L) 8.6 - 10.3 mg/dL 10/22/2025 6:20 AM EST [facility] Osmolality, Calculated 290 278 - 305 mOsm/kg 10/22/2025 6:20 AM EST [facility] EGFR >90 10/22/2025 6:20 AM EST [facility] Comment: As of 2022, the [...] ORDERABLES Final Resul t Performing Organization Address City/[facility]/ZIP Co de Phone Number [facility] [address] [place] [address] * (ABNORMAL) POC Glucose Monitoring Device (10/21/2025 4:31 PM EST) POC Glucose Monitoring Device 230(H) 70 - 100 mg/dL 10/21/2025 4:32 PM EST [facility] Blood 10/21/2025 4:31 PM EST 10/21/2025 4:32 PM EST Vani Winkler MD POINT OF CARE TEST ORDERABLE S Final Result Performing Organization Address City/[facility]/ZIP Co de Phone Number [facility] [address] [place] [address] * (ABNORMAL) POC Glucose Monitoring Device (10/21/2025 12:27 PM EST) POC Glucose Monitoring Device 181(H) 70 - 100 mg/dL 10/21/2025 12:27 PM EST [facility] Blood 10/21/2025 12:2 7 PM EST 10/21/2025 12:27 PM EST Vani Winkler MD POINT OF CARE TEST ORDERABLE S Final Result Performing Organization Address [facility] Co de Phone Number [facility] [address] * Tacrolimus level (10/21/2025 8:30 AM EST) Tacrolimus (LC-MS) 6.9 3.0 - 15.0 ng/mL 10/21/2025 3:07 PM EST [facility] Comment:Performed via liquid chromatography tandem mass spectrometry. Detection limit: 1 ng/mL. Individual target concentrations may vary due to target organ and time after transplant. This test has been developed and its performance characteristics determined by [facility] which is certified under [...] ORDERABLES Final Re sult Performing Organization Address [facility] Co de Phone Number [facility] [address] [facility]. [address] * (ABNORMAL) POC Glucose Monitoring Device (10/21/2025 8:18 AM EST) POC Glucose Monitoring Device 112(H) 70 - 100 mg/dL 10/21/2025 8:28 AM EST [facility] Blood 10/21/2025 8:18 AM EST 10/21/2025 8:28 AM EST Vani Winkler MD POINT OF CARE TEST ORDERABLE S Final Result Performing Organization Address City/[facility] Co de Phone Number [facility] [address] * (ABNORMAL) Hepatic Function Panel (10/21/2025 6:35 AM EST) Total Bilirubin 0.9 0.0 - 1.5 mg/dL 10/21/2025 7:45 AM EST [facility] Bilirubin, Direct 0.41(H) 0.00 - 0.40 mg/dL 10/21/2025 7:45 AM EST [facility] AST 64(H) 13 - 39 U/L 10/21/2025 7:45 AM EST [facility] ALT 389(H) 7 - 52 U/L 10/21/2025 7:45 AM EST [facility] Alkaline Phosphatase 83 36 - 125 U/L 10/21/2025 7:45 AM EST [facility] Total Protein 4.3(L) 6.4 - 8.9 g/dL 10/21/2025 7:45 AM EST [facility] Albumin 2.2(L) 3.5 - 5.7 g/dL 10/21/2025 7:45 AM EST [facility] Bilirubin, Indirect 0.49 0.00 - 1.10 mg/dL 10/21/2025 7:45 AM EST [facility] Plasma 10/21/2025 6:35 AM EST 10/21/2025 6:58 AM EST us Aspen Parr MD LAB BLOOD ORDERABLES Final Resul t Performing Organization Address [facility] Co de Phone Number [facility] [address] [facility]. [address] * Magnesium (10/21/2025 6:35 AM EST) Magnesium 2.0 1.5 - 2.5 mg/dL 10/21/2025 7:45 AM EST [facility] Plasma 10/21/2025 6:35 AM EST 10/21/2025 6:58 AM EST Aspen Parr MD LAB BLOOD ORDERABLES Final Resul t [facility] [address] [place] [id number], [facility] * (ABNORMAL) Renal Function Panel w/EGFR (10/21/2025 6:35 AM EST) Sodium 139 133 - 146 mmol/L 10/21/2025 7:45 AM EST [facility] Potassium 3.5 3.5 - 5.3 mmol/L 10/21/2025 7:45 AM EST [facility] Chloride 108 98 - 110 mmol/L 10/21/2025 7:45 AM EST [facility] CO2 26 21 - 33 mmol/L 10/21/2025 7:45 AM EST [facility] Comment:High lactate dehydro genase concentrations in patient samples may cause falsely increased bicarbonate results. If markedly elevated LDH is observed or suspected, please assess results in conjunction with patient`s clinical presentation. In cases of discrepant results, consider evaluating CO2 in with a blood gas order. Anion Gap 5 3 - 16 mmol/L 10/21/2025 7:45 AM EST [facility] BUN 39(H) 7 - 25 mg/dL 10/21/2025 7:45 AM EST [facility] Creatinine 0.96 0.60 - 1.30 mg/dL 10/21/2025 7:45 AM EST [facility] Glucose 126(H) 70 - 100 mg/dL 10/21/2025 7:45 AM EST [facility] Calcium 6.8(L) 8.6 - 10.3 mg/dL 10/21/2025 7:45 AM EST [facility] Phosphorus 2.8 2.1 - 4.7 mg/dL 10/21/2025 7:45 AM EST [facility] Albumin 2.2(L) 3.5 - 5.7 g/dL 10/21/2025 7:45 AM EST [facility] Osmolality, Calculated 299 278 - 305 mOsm/kg 10/21/2025 7:45 AM EST [facility] EGFR 88 10/21/2025 7:45 AM EST [facility] Comment:As of 2022, the estimated [...] MD LAB BLOOD ORDERABLES Final Resul t [facility] [address] [place] [address], [facility] * (ABNORMAL) CBC (10/21/2025 6:35 AM EST) WBC 8.4 3.8 - 10.8 10E3/uL 10/21/2025 7:55 AM EST [facility] RBC 2.68(L) 4.20 - 5.80 10E6/uL 10/21/2025 7:55 AM EST [facility] Hemoglobin 8.9(L) 13.2 - 17.1 g/dL 10/21/2025 7:55 AM EST [facility] Hematocrit 24.8(L) 38.5 - 50.0 % 10/21/2025 7:55 AM EST [facility] MCV 92.6 80.0 - 100.0 fL 10/21/2025 7:55 AM EST [facility] MCH 33.3(H) 27.0 - 33.0 pg 10/21/2025 7:55 AM EST [facility] MCHC 36.0 32.0 - 36.0 g/dL 10/21/2025 7:55 AM EST [facility] RDW 16.9(H) 11.0 - 15.0 % 10/21/2025 7:55 AM EST [facility] Platelets 20(L) 140 - 400 10E3/uL 10/21/2025 7:55 AM EST [facility] Comment: CNV Specimen checked for clots. None detected. MPV 8.5 7.5 - 11.5 fL 10/21/2025 7:55 AM EST [facility] Whole Blood 10/21/2025 6:35 AM EST 10/21/2025 6:58 AM EST us Aspen Parr MD LAB BLOOD ORDERABLES Final Resul t [facility] [address] [facility]. [address] * (ABNORMAL) POC Glucose Monitoring Device (10/20/2025 5:17 PM EST) POC Glucose Monitoring Device 195(H) 70 - 100 mg/dL 10/20/2025 5:18 PM EST [facility] Blood 10/20/2025 5:17 PM EST 10/20/2025 5:18 PM EST us Vani Winkler MD POINT OF CARE TEST ORDERABLE S Final Result Performing Organization Address [facility] Co de Phone Number [facility] [address] [facility]. [address] * (ABNORMAL) POC Glucose Monitoring Device (10/20/2025 2:24 PM EST) POC Glucose Monitoring Device 205(H) 70 - 100 mg/dL 10/20/2025 2:24 PM EST [facility] Blood 10/20/2025 2:24 PM EST 10/20/2025 2:24 PM EST Vani Winkler MD POINT OF CARE TEST ORDERABLE S Final Result Performing Organization Address City/[facility]/ZIP Co de Phone Number [facility] [address] [facility]. [address] * Tacrolimus level (10/20/2025 10:31 AM EST) Tacrolimus (LC-MS) 7.9 3.0 - 15.0 ng/mL 10/20/2025 2:25 PM EST [facility] Comment:Performed via liquid chromatography tandem mass spectrometry. Detection limit: 1 ng/mL. Individual target concentrations may vary due to target organ and time after transplant. This test has been developed and its performance characteristics determined by [facility] which is certified under [...] ORDERABLES Final Re sult Performing Organization Address [facility]/ZIP Co de Phone Number [facility] [address] * (ABNORMAL) POC Glucose Monitoring Device (10/20/2025 9:24 AM EST) POC Glucose Monitoring Device 227(H) 70 - 100 mg/dL 10/20/2025 9:25 AM EST [facility] GENERAL Blood 10/20/2025 9:24 AM EST 10/20/2025 9:25 AM EST Vani Winkler MD POINT OF CARE TEST ORDERABLE S Final Result Performing Organization Address City/[facility]/ZIP Co de Phone Number [facility] [address] * Magnesium (10/20/2025 5:31 AM EST) Magnesium 2.1 1.5 - 2.5 mg/dL 10/20/2025 7:35 AM EST [facility] Plasma 10/20/2025 5:31 AM EST 10/20/2025 5:42 AM EST Aspen Parr MD LAB BLOOD ORDERABLES Final Resul t Performing Organization Address [facility] Co de Phone Number [facility] [address] [facility] [place]. [address] * (ABNORMAL) Hepatic Function Panel (10/20/2025 5:31 AM EST) Total Bilirubin 0.9 0.0 - 1.5 mg/dL 10/20/2025 7:35 AM EST [facility] Bilirubin, Direct 0.43(H) 0.00 - 0.40 mg/dL 10/20/2025 7:35 AM EST [facility] AST 161(H) 13 - 39 U/L 10/20/2025 7:35 AM EST [facility] ALT 532(H) 7 - 52 U/L 10/20/2025 7:35 AM EST [facility] Alkaline Phosphatase 67 36 - 125 U/L 10/20/2025 7:35 AM EST [facility] Total Protein 4.2(L) 6.4 - 8.9 g/dL 10/20/2025 7:35 AM EST [facility] Albumin 2.2(L) 3.5 - 5.7 g/dL 10/20/2025 7:35 AM EST [facility] Bilirubin, Indirect 0.47 0.00 - 1.10 mg/dL 10/20/2025 7:35 AM EST [facility] Plasma 10/20/2025 5:31 AM EST 10/20/2025 5:42 AM EST us Aspen Parr MD LAB BLOOD ORDERABLES Final Resul t Performing Organization Address City/[facility] Co de Phone Number [facility] [address] [facility]. [address] * (ABNORMAL) Renal Function Panel w/EGFR (10/20/2025 5:31 AM EST) Sodium 142 133 - 146 mmol/L 10/20/2025 7:23 AM EST [facility] Potassium 3.8 3.5 - 5.3 mmol/L 10/20/2025 7:23 AM EST [facility] Chloride 111(H) 98 - 110 mmol/L 10/20/2025 7:23 AM EST [facility] CO2 25 21 - 33 mmol/L 10/20/2025 7:23 AM EST [facility] Comment:High lactate dehydro genase concentrations in patient samples may cause falsely increased bicarbonate results. If markedly elevated LDH is observed or suspected, please assess results in conjunction with patient`s clinical presentation. In cases of discrepant results, consider evaluating CO2 in with a blood gas order. Anion Gap 6 3 - 16 mmol/L 10/20/2025 7:23 AM EST [facility] BUN 47(H) 7 - 25 mg/dL 10/20/2025 7:23 AM [facility] Creatinine 1.15 0.60 - 1.30 mg/dL 10/20/2025 7:23 AM [facility] Glucose 198(H) 70 - 100 mg/dL 10/20/2025 7:23 AM [facility] Calcium 6.8(L) 8.6 - 10.3 mg/dL 10/20/2025 7:23 AM [facility] Phosphorus 4.8(H) 2.1 - 4.7 mg/dL 10/20/2025 7:35 AM [facility] Albumin 2.2(L) 3.5 - 5.7 g/dL 10/20/2025 7:35 AM [facility] Osmolality, Calculated 312(H) 278 - 305 mOsm/kg 10/20/2025 7:23 AM [facility] EGFR 71 10/20/2025 7:23 AM [facility] Comment:As of 2022, the [...] MD LAB BLOOD ORDERABLES Final Resul t [facility] [address] [place] [address], [facility] * (ABNORMAL) CBC (10/20/2025 5:31 AM EST) WBC 6.1 3.8 - 10.8 10E3/uL 10/20/2025 6:18 AM EST [facility] RBC 2.64(L) 4.20 - 5.80 10E6/uL 10/20/2025 6:18 AM EST [facility] Hemoglobin 8.5(L) 13.2 - 17.1 g/dL 10/20/2025 6:18 AM EST [facility] Hematocrit 24.6(L) 38.5 - 50.0 % 10/20/2025 6:18 AM EST [facility] MCV 93.2 80.0 - 100.0 fL 10/20/2025 6:18 AM EST [facility] MCH 32.2 27.0 - 33.0 pg 10/20/2025 6:18 AM EST [facility] MCHC 34.6 32.0 - 36.0 g/dL 10/20/2025 6:18 AM [facility] RDW 17.4(H) 11.0 - 15.0 % 10/20/2025 6:18 AM [facility] Platelets 17(LL) 140 - 400 10E3/uL 10/20/2025 6:18 AM EST [facility] Comment: Results verified by repeat analysis. Critical Result PLT:17 Called to and read back by ALEKSANDR SMITH RN at: 10/20/2025 06:18:19 by:DEJON FISHMAN 8.4 7.5 - 11.5 fL 10/20/2025 6:18 AM EST [facility] Whole Blood 10/20/2025 5:31 AM EST 10/20/2025 5:42 AM EST Aspen Parr MD LAB BLOOD ORDERABLES Final Resul t [facility] [address] * (ABNORMAL) POC Glucose Monitoring Device (10/20/2025 5:30 AM EST) POC Glucose Monitoring Device 208(H) 70 - 100 mg/dL 10/20/2025 5:31 AM EST [facility] Blood 10/20/2025 5:30 AM EST 10/20/2025 5:31 AM EST us Vani Winkler MD POINT OF CARE TEST ORDERABLE S Final Result Performing Organization Address [facility] Co de Phone Number [facility] [address] [facility] [place]. [address] * (ABNORMAL) Protime-INR (10/19/2025 11:03 PM EST) Protime 18.2(H) 12.1 - 15.1 seconds 10/19/2025 11:27 PM EST [facility] INR 1.4(H) 0.9 - 1.1 10/19/2025 11:27 PM EST [facility] Comment: RECOMMENDED THERAPEUTIC RANGES USING INR : Stable oral anticoagulant therapy: 2.0 - 3.0 Mechanical prosthetic heart valve: 2.5 - 3.5 Recurrent acute myocardial infarction: 2.5 - 3.5 Plasma 10/19/2025 11:0 3 PM EST 10/19/2025 11:07 PM EST us Aspen Parr MD LAB BLOOD ORDERABLES Final Resul t [facility] [address] [facility] [place]. [address] * Magnesium (10/19/2025 11:03 PM EST) Magnesium 2.1 1.5 - 2.5 mg/dL 10/19/2025 11:45 PM EST [facility] Plasma 10/19/2025 11:0 3 PM EST 10/19/2025 11:07 PM EST us Aspen Parr MD LAB BLOOD ORDERABLES Final Resul t Performing Organization Address [facility]/ZIP Co de Phone Number [facility] [address] * (ABNORMAL) Hepatic Function Panel (10/19/2025 11:03 PM EST) Total Bilirubin 1.0 0.0 - 1.5 mg/dL 10/19/2025 11:45 PM EST [facility] Bilirubin, Direct 0.48(H) 0.00 - 0.40 mg/dL 10/19/2025 11:45 PM EST [facility] AST 223(H) 13 - 39 U/L 10/19/2025 11:45 PM EST [facility] ALT 569(H) 7 - 52 U/L 10/19/2025 11:45 PM EST [facility] Alkaline Phosphatase 68 36 - 125 U/L 10/19/2025 11:45 PM EST [facility] Total Protein 4.4(L) 6.4 - 8.9 g/dL 10/19/2025 11:45 PM EST [facility] Albumin 2.2(L) 3.5 - 5.7 g/dL 10/19/2025 11:45 PM EST [facility] Bilirubin, Indirect 0.52 0.00 - 1.10 mg/dL 10/19/2025 11:45 PM EST [facility] Plasma 10/19/2025 11:0 3 PM EST 10/19/2025 11:07 PM EST us Aspen Parr MD LAB BLOOD ORDERABLES Final Resul t [facility] [address] [facility] [place]. [address] * (ABNORMAL) Renal Function Panel w/EGFR (10/19/2025 11:03 PM EST) Sodium 144 133 - 146 mmol/L 10/19/2025 11:33 PM EST [facility] Potassium 3.6 3.5 - 5.3 mmol/L 10/19/2025 11:33 PM [facility] Chloride 110 98 - 110 mmol/L 10/19/2025 11:33 PM [facility] CO2 25 21 - 33 mmol/L 10/19/2025 11:33 PM [facility] Comment:High lactate dehydro genase concentrations in patient samples may cause falsely increased bicarbonate results. If markedly elevated LDH is observed or suspected, please assess results in conjunction with patient`s clinical presentation. In cases of discrepant results, consider evaluating CO2 in with a blood gas order. Anion Gap 9 3 - 16 mmol/L 10/19/2025 11:33 PM [facility] BUN 46(H) 7 - 25 mg/dL 10/19/2025 11:33 PM [facility] Creatinine 1.24 0.60 - 1.30 mg/dL 10/19/2025 11:33 PM [facility] Glucose 184(H) 70 - 100 mg/dL 10/19/2025 11:33 PM [facility] Calcium 7.1(L) 8.6 - 10.3 mg/dL 10/19/2025 11:33 PM [facility] Phosphorus 4.9(H) 2.1 - 4.7 mg/dL 10/19/2025 11:45 PM [facility] Albumin 2.2(L) 3.5 - 5.7 g/dL 10/19/2025 11:45 PM [facility] Osmolality, Calculated 315(H) 278 - 305 mOsm/kg 10/19/2025 11:33 PM [facility] EGFR 65 10/19/2025 11:33 PM [facility] Comment:As of 2022, the [...] MD LAB BLOOD ORDERABLES Final Resul t [facility] [address] [place] [id number] * (ABNORMAL) CBC (10/19/2025 11:03 PM EST) WBC 7.0 3.8 - 10.8 10E3/uL 10/19/2025 11:20 PM EST [facility] RBC 2.77(L) 4.20 - 5.80 10E6/uL 10/19/2025 11:20 PM EST [facility] Hemoglobin 8.9(L) 13.2 - 17.1 g/dL 10/19/2025 11:20 PM EST [facility] Hematocrit 25.8(L) 38.5 - 50.0 % 10/19/2025 11:20 PM EST [facility] MCV 93.2 80.0 - 100.0 fL 10/19/2025 11:20 PM EST [facility] MCH 32.2 27.0 - 33.0 pg 10/19/2025 11:20 PM EST [facility] MCHC 34.5 32.0 - 36.0 g/dL 10/19/2025 11:20 PM EST [facility] RDW 18.1(H) 11.0 - 15.0 % 10/19/2025 11:20 PM EST [facility] Platelets 20(L) 140 - 400 10E3/uL 10/19/2025 11:20 PM EST [facility] Comment:CNV MPV 8.0 7.5 - 11.5 fL 10/19/2025 11:20 PM EST [facility] Whole Blood 10/19/2025 11:0 3 PM EST 10/19/2025 11:07 PM EST us Aspen Parr MD LAB BLOOD ORDERABLES Final Resul t Performing Organization Address City/[facility]/ZIP Co de Phone Number [facility] [address] [facility] [place]. [address] * (ABNORMAL) POC Glucose Monitoring Device (10/19/2025 11:02 PM EST) POC Glucose Monitoring Device 185(H) 70 - 100 mg/dL 10/19/2025 11:03 PM EST [facility] Blood 10/19/2025 11:0 2 PM EST 10/19/2025 11:03 PM EST us Vani Winkler MD POINT OF CARE TEST ORDERABLE S Final Result Performing Organization Address [facility] Co de Phone Number [facility] [address] [facility] [place]. [address] * (ABNORMAL) POC Glucose Monitoring Device (10/19/2025 5:24 PM EST) POC Glucose Monitoring Device 166(H) 70 - 100 mg/dL 10/19/2025 5:35 PM EST [facility] Blood 10/19/2025 5:24 PM EST 10/19/2025 5:35 PM EST us Vani Winkler MD POINT OF CARE TEST ORDERABLE S Final Result Performing Organization Address City/[facility]/ZIP Co de Phone Number [facility] [address] * (ABNORMAL) POC Glucose Monitoring Device (10/19/2025 12:26 PM EST) POC Glucose Monitoring Device 156(H) 70 - 100 mg/dL 10/19/2025 12:27 PM EST [facility] Blood 10/19/2025 12:2 6 PM EST 10/19/2025 12:27 PM EST us Vani Winkler MD POINT OF CARE TEST ORDERABLE S Final Result [facility] [address] * (ABNORMAL) POC Glucose Monitoring Device (10/19/2025 9:51 AM EST) Pathologist [facility] POC Glucose Monitoring Device 110(H) 70 - 100 mg/dL 10/19/2025 9:52 AM EST [facility] Blood 10/19/2025 9:51 AM EST 10/19/2025 9:52 AM EST Vani Winkler MD POINT OF CARE TEST ORDERABLE S Final Result Performing Organization Address City/[facility]/ZIP Co de Phone Number [facility] [address] [facility] [place]. [address] * (ABNORMAL) Tacrolimus level (10/19/2025 8:29 AM EST) Pathologist [facility] Tacrolimus (LC-MS) 2.1(L) 3.0 - 15.0 ng/mL 10/19/2025 3:06 PM EST [facility] Comment:Performed via liquid chromatography tandem mass spectrometry. Detection limit: 1 ng/mL. Individual target concentrations may vary due to target organ and time after transplant. This test has been developed and its performance characteristics determined by [facility] which is certified under [...] MD LAB BLOOD ORDERABLES Final Re sult [facility] [address] [facility] [place]. [address] * (ABNORMAL) Protime-INR (10/19/2025 8:29 AM EST) Protime 19.1(H) 12.1 - 15.1 seconds 10/19/2025 9:09 AM EST [facility] INR 1.5(H) 0.9 - 1.1 10/19/2025 9:09 AM EST [facility] Comment: RECOMMENDED THERAPEUTIC RANGES USING INR : Stable oral anticoagulant therapy: 2.0 - 3.0 Mechanical prosthetic heart valve: 2.5 - 3.5 Recurrent acute myocardial infarction: 2.5 - 3.5 Plasma 10/19/2025 8:29 AM EST 10/19/2025 8:33 AM EST Aspen Parr MD LAB BLOOD ORDERABLES Final Resul t Performing Organization Address City/[facility]/ZIP Co de Phone Number [facility] [address] [facility] [place]. [address] * Magnesium (10/19/2025 8:29 AM EST) Magnesium 2.0 1.5 - 2.5 mg/dL 10/19/2025 9:28 AM EST [facility] Plasma 10/19/2025 8:29 AM EST 10/19/2025 8:33 AM EST Aspen Parr MD LAB BLOOD ORDERABLES Final Resul t Performing Organization Address [facility] Co de Phone Number [facility] [address] [facility] [place]. [address] * (ABNORMAL) Hepatic Function Panel (10/19/2025 8:29 AM EST) Total Bilirubin 1.0 0.0 - 1.5 mg/dL 10/19/2025 9:28 AM EST [facility] Bilirubin, Direct 0.44(H) 0.00 - 0.40 mg/dL 10/19/2025 9:28 AM EST [facility] AST 450(H) 13 - 39 U/L 10/19/2025 9:28 AM EST [facility] ALT 725(H) 7 - 52 U/L 10/19/2025 9:28 AM EST [facility] Alkaline Phosphatase 65 36 - 125 U/L 10/19/2025 9:28 AM EST [facility] Total Protein 4.4(L) 6.4 - 8.9 g/dL 10/19/2025 9:28 AM EST [facility] Albumin 2.2(L) 3.5 - 5.7 g/dL 10/19/2025 9:28 AM EST [facility] Bilirubin, Indirect 0.56 0.00 - 1.10 mg/dL 10/19/2025 9:28 AM EST [facility] Plasma 10/19/2025 8:29 AM EST 10/19/2025 8:33 AM EST us Aspen Parr MD LAB BLOOD ORDERABLES Final Resul t [facility] [address] * (ABNORMAL) Renal Function Panel w/EGFR (10/19/2025 8:29 AM EST) Sodium 145 133 - 146 mmol/L 10/19/2025 9:09 AM [facility] Potassium 3.6 3.5 - 5.3 mmol/L 10/19/2025 9:09 AM [facility] Chloride 113(H) 98 - 110 mmol/L 10/19/2025 9:09 AM [facility] CO2 25 21 - 33 mmol/L 10/19/2025 9:09 AM [facility] Comment:High lactate dehydro genase concentrations in patient samples may cause falsely increased bicarbonate results. If markedly elevated LDH is observed or suspected, please assess results in conjunction with patient`s clinical presentation. In cases of discrepant results, consider evaluating CO2 in with a blood gas order. Anion Gap 7 3 - 16 mmol/L 10/19/2025 9:09 AM [facility] BUN 38(H) 7 - 25 mg/dL 10/19/2025 9:09 AM [facility] Creatinine 1.16 0.60 - 1.30 mg/dL 10/19/2025 9:09 AM [facility] Glucose 129(H) 70 - 100 mg/dL 10/19/2025 9:09 AM [facility] Calcium 7.2(L) 8.6 - 10.3 mg/dL 10/19/2025 9:09 AM EST [facility] Phosphorus 4.0 2.1 - 4.7 mg/dL 10/19/2025 9:28 AM EST [facility] Albumin 2.2(L) 3.5 - 5.7 g/dL 10/19/2025 9:28 AM EST [facility] Osmolality, Calculated 311(H) 278 - 305 mOsm/kg 10/19/2025 9:09 AM EST [facility] EGFR 70 10/19/2025 9:09 AM EST [facility] Comment:As of 2022, the estimated [...] MD LAB BLOOD ORDERABLES Final Resul t [facility] [address] * (ABNORMAL) CBC (10/19/2025 8:29 AM EST) WBC 9.8 3.8 - 10.8 10E3/uL 10/19/2025 9:06 AM EST [facility] RBC 2.90(L) 4.20 - 5.80 10E6/uL 10/19/2025 9:06 AM EST [facility] Hemoglobin 9.6(L) 13.2 - 17.1 g/dL 10/19/2025 9:06 AM EST [facility] Hematocrit 26.8(L) 38.5 - 50.0 % 10/19/2025 9:06 AM EST [facility] MCV 92.4 80.0 - 100.0 fL 10/19/2025 9:06 AM [facility] MCH 33.2(H) 27.0 - 33.0 pg 10/19/2025 9:06 AM EST [facility] MCHC 36.0 32.0 - 36.0 g/dL 10/19/2025 9:06 AM [facility] RDW 18.5(H) 11.0 - 15.0 % 10/19/2025 9:06 AM [facility] Platelets 22(L) 140 - 400 10E3/uL 10/19/2025 9:06 AM [facility] Comment: CNV Specimen checked for clots. None detected. MPV 8.5 7.5 - 11.5 fL 10/19/2025 9:06 AM EST [facility] Whole Blood 10/19/2025 8:29 AM EST 10/19/2025 8:33 AM EST us Aspen Parr MD LAB BLOOD ORDERABLES Final Resul t [facility] [address] * (ABNORMAL) POC Glucose Monitoring Device (10/19/2025 8:28 AM EST) POC Glucose Monitoring Device 122(H) 70 - 100 mg/dL 10/19/2025 8:39 AM EST [facility] Blood 10/19/2025 8:28 AM EST 10/19/2025 8:38 AM EST us Vani Winkler MD POINT OF CARE TEST ORDERABLE S Final Result [facility] [address] * (ABNORMAL) POC Glucose Monitoring Device (10/19/2025 7:07 AM EST) POC Glucose Monitoring Device 136(H) 70 - 100 mg/dL 10/19/2025 7:08 AM EST [facility] Blood 10/19/2025 7:07 AM EST 10/19/2025 7:08 AM EST Vani Winkler MD POINT OF CARE TEST ORDERABLE S Final Result [facility] [address] [facility] [place]. [address] * (ABNORMAL) POC Glucose Monitoring Device (10/19/2025 6:28 AM EST) POC Glucose Monitoring Device 109(H) 70 - 100 mg/dL 10/19/2025 6:29 AM EST [facility] Blood 10/19/2025 6:28 AM EST 10/19/2025 6:29 AM EST Vani Winkler MD POINT OF CARE TEST ORDERABLE S Final Result Performing Organization Address City/[facility]/ZIP Co de Phone Number [facility] [address] [facility] [place]. [address] * (ABNORMAL) POC Glucose Monitoring Device (10/19/2025 6:10 AM EST) POC Glucose Monitoring Device 108(H) 70 - 100 mg/dL 10/19/2025 6:12 AM EST [facility] Blood 10/19/2025 6:10 AM EST 10/19/2025 6:11 AM EST Vani Winkler MD POINT OF CARE TEST ORDERABLE S Final Result [facility] [address] [facility] [place]. [address] * (ABNORMAL) POC Glucose Monitoring Device (10/19/2025 4:06 AM EST) POC Glucose Monitoring Device 115(H) 70 - 100 mg/dL 10/19/2025 4:07 AM EST [facility] Blood 10/19/2025 4:06 AM EST 10/19/2025 4:07 AM EST Vani Winkler MD POINT OF CARE TEST ORDERABLE S Final Result Performing Organization Address City/[facility]/ZIP Co de Phone Number [facility] [address] [facility] [place]. [address] * (ABNORMAL) POC Glucose Monitoring Device (10/19/2025 2:04 AM EST) POC Glucose Monitoring Device 129(H) 70 - 100 mg/dL 10/19/2025 2:06 AM EST [facility] Blood 10/19/2025 2:04 AM EST 10/19/2025 2:05 AM EST Vani Winkler MD POINT OF CARE TEST ORDERABLE S Final Result Performing Organization Address [facility] Co de Phone Number [facility] [address] [facility] [place]. [address] * (ABNORMAL) POC Glucose Monitoring Device (10/18/2025 11:57 PM EST) POC Glucose Monitoring Device 131(H) 70 - 100 mg/dL 10/18/2025 11:58 PM EST [facility] Blood 10/18/2025 11:5 7 PM EST 10/18/2025 11:58 PM EST Vani Winkler MD POINT OF CARE TEST ORDERABLE S Final Result Performing Organization Address City/[facility] Co de Phone Number [facility] [address] [facility] [place]. [address] * Lactic Acid (10/18/2025 10:20 PM EST) Lactate 0.8 0.5 - 2.2 mmol/L 10/18/2025 11:03 PM EST [facility] Plasma 10/18/2025 10:2 0 PM EST 10/18/2025 10:26 PM EST Aspen Parr MD LAB BLOOD ORDERABLES Final Resul t [facility] [address] * Magnesium (10/18/2025 10:20 PM EST) Magnesium 1.8 1.5 - 2.5 mg/dL 10/18/2025 11:18 PM EST [facility] Plasma 10/18/2025 10:2 0 PM EST 10/18/2025 10:26 PM EST Aspen Parr MD LAB BLOOD ORDERABLES Final Resul t Performing Organization Address City/[facility] Co de Phone Number [facility] [address] [facility] [place]. [address] * (ABNORMAL) Hepatic Function Panel (10/18/2025 10:20 PM EST) Total Bilirubin 1.0 0.0 - 1.5 mg/dL 10/18/2025 11:18 PM EST [facility] Bilirubin, Direct 0.51(H) 0.00 - 0.40 mg/dL 10/18/2025 11:18 PM EST [facility] AST 717(H) 13 - 39 U/L 10/18/2025 11:18 PM EST [facility] ALT 792(H) 7 - 52 U/L 10/18/2025 11:18 PM EST [facility] Alkaline Phosphatase 62 36 - 125 U/L 10/18/2025 11:18 PM EST [facility] Total Protein 4.3(L) 6.4 - 8.9 g/dL 10/18/2025 11:18 PM EST [facility] Albumin 2.1(L) 3.5 - 5.7 g/dL 10/18/2025 11:18 PM EST [facility] Bilirubin, Indirect 0.49 0.00 - 1.10 mg/dL 10/18/2025 11:18 PM EST [facility] Plasma 10/18/2025 10:2 0 PM EST 10/18/2025 10:26 PM EST us Aspen Parr MD LAB BLOOD ORDERABLES Final Resul t [facility] [address] [place] [address], [facility] * (ABNORMAL) Renal Function Panel w/EGFR (10/18/2025 10:20 PM EST) Sodium 146 133 - 146 mmol/L 10/18/2025 11:05 PM EST [facility] Potassium 3.1(L) 3.5 - 5.3 mmol/L 10/18/2025 11:05 PM EST [facility] Chloride 113(H) 98 - 110 mmol/L 10/18/2025 11:05 PM EST [facility] CO2 24 21 - 33 mmol/L 10/18/2025 11:05 PM EST [facility] Comment:High lactate dehydro genase concentrations in patient samples may cause falsely increased bicarbonate results. If markedly elevated LDH is observed or suspected, please assess results in conjunction with patient`s clinical presentation. In cases of discrepant results, consider evaluating CO2 in with a blood gas order. Anion Gap 9 3 - 16 mmol/L 10/18/2025 11:05 PM EST [facility] BUN 32(H) 7 - 25 mg/dL 10/18/2025 11:05 PM EST [facility] Creatinine 1.09 0.60 - 1.30 mg/dL 10/18/2025 11:05 PM EST [facility] Glucose 129(H) 70 - 100 mg/dL 10/18/2025 11:05 PM EST [facility] Calcium 7.4(L) 8.6 - 10.3 mg/dL 10/18/2025 11:05 PM [facility] Phosphorus 4.0 2.1 - 4.7 mg/dL 10/18/2025 11:18 PM EST [facility] Albumin 2.1(L) 3.5 - 5.7 g/dL 10/18/2025 11:18 PM [facility] Osmolality, Calculated 311(H) 278 - 305 mOsm/kg 10/18/2025 11:05 PM EST [facility] EGFR 76 10/18/2025 11:05 PM EST [facility] Comment:As of 2022, the estimated [...] Resul t Performing Organization Address [facility] Co de Phone Number [facility] [id number] [facility] [place]. [address] * (ABNORMAL) Protime-INR (10/18/2025 10:20 PM EST) Protime 21.9(H) 12.1 - 15.1 seconds 10/18/2025 10:52 PM [facility] INR 1.8(H) 0.9 - 1.1 10/18/2025 10:52 PM EST [facility] Comment: RECOMMENDED THERAPEUTIC RANGES USING INR : Stable oral anticoagulant therapy: 2.0 - 3.0 Mechanical prosthetic heart valve: 2.5 - 3.5 Recurrent acute myocardial infarction: 2.5 - 3.5 Plasma 10/18/2025 10:2 0 PM EST 10/18/2025 10:26 PM EST Aspen Parr MD LAB BLOOD ORDERABLES Final Resul t Performing Organization Address [facility] Co de Phone Number [facility] [id number] [facility] [place]. [address] * (ABNORMAL) CBC (10/18/2025 10:20 PM EST) WBC 11.4(H) 3.8 - 10.8 10E3/uL 10/18/2025 10:59 PM EST [facility] RBC 2.92(L) 4.20 - 5.80 10E6/uL 10/18/2025 10:59 PM EST [facility] Hemoglobin 9.5(L) 13.2 - 17.1 g/dL 10/18/2025 10:59 PM EST [facility] Hematocrit 26.9(L) 38.5 - 50.0 % 10/18/2025 10:59 PM EST [facility] MCV 92.2 80.0 - 100.0 fL 10/18/2025 10:59 PM EST [facility] MCH 32.7 27.0 - 33.0 pg 10/18/2025 10:59 PM EST [facility] MCHC 35.4 32.0 - 36.0 g/dL 10/18/2025 10:59 PM EST [facility] RDW 18.3(H) 11.0 - 15.0 % 10/18/2025 10:59 PM EST [facility] Platelets 22(L) 140 - 400 10E3/uL 10/18/2025 10:59 PM EST [facility] Comment: CNV Specimen checked for clots. None detected. MPV 7.8 7.5 - 11.5 fL 10/18/2025 10:59 PM EST [facility] Whole Blood 10/18/2025 10:2 0 PM EST 10/18/2025 10:26 PM EST us Aspen Parr MD LAB BLOOD ORDERABLES Final Resul t [facility] [address] [place] [address], [facility] * (ABNORMAL) POC Glucose Monitoring Device (10/18/2025 10:07 PM EST) POC Glucose Monitoring Device 134(H) 70 - 100 mg/dL 10/18/2025 10:08 PM EST [facility] Blood 10/18/2025 10:0 7 PM EST 10/18/2025 10:08 PM EST us Vani Winkler MD POINT OF CARE TEST ORDERABLE S Final Result Performing Organization Address [facility] Co de Phone Number [facility] [address] [place] [address]. [address] * (ABNORMAL) POC Glucose Monitoring Device (10/18/2025 8:14 PM EST) POC Glucose Monitoring Device 138(H) 70 - 100 mg/dL 10/18/2025 8:15 PM EST [facility] Blood 10/18/2025 8:14 PM EST 10/18/2025 8:15 PM EST us Vani Winkler MD POINT OF CARE TEST ORDERABLE S Final Result Performing Organization Address [facility] de Phone Number [facility] [address] [place] [address]. [address] * Lactic Acid (10/18/2025 5:47 PM EST) Lactate 0.7 0.5 - 2.2 mmol/L 10/18/2025 8:43 PM EST [facility] Plasma 10/18/2025 5:47 PM EST 10/18/2025 7:56 PM EST Aspen Parr MD LAB BLOOD ORDERABLES Final Resul t Performing Organization Address City/[facility] Co de Phone Number [facility] [address] [facility] [place]. [address] * Magnesium (10/18/2025 5:47 PM EST) Magnesium 1.9 1.5 - 2.5 mg/dL 10/18/2025 6:40 PM EST [facility] Plasma 10/18/2025 5:47 PM EST 10/18/2025 5:54 PM EST us Aspen Parr MD LAB BLOOD ORDERABLES Final Resul t Performing Organization Address [facility] de Phone Number [facility] [address] [facility] [place]. [address] * (ABNORMAL) Hepatic Function Panel (10/18/2025 5:47 PM EST) Total Bilirubin 1.1 0.0 - 1.5 mg/dL 10/18/2025 6:40 PM EST [facility] Bilirubin, Direct 0.56(H) 0.00 - 0.40 mg/dL 10/18/2025 6:40 PM EST [facility] AST 965(H) 13 - 39 U/L 10/18/2025 6:40 PM EST [facility] ALT 871(H) 7 - 52 U/L 10/18/2025 6:40 PM EST [facility] Alkaline Phosphatase 61 36 - 125 U/L 10/18/2025 6:40 PM EST [facility] Total Protein 4.3(L) 6.4 - 8.9 g/dL 10/18/2025 6:40 PM EST [facility] Albumin 2.2(L) 3.5 - 5.7 g/dL 10/18/2025 6:40 PM EST [facility] Bilirubin, Indirect 0.54 0.00 - 1.10 mg/dL 10/18/2025 6:40 PM EST [facility] Plasma 10/18/2025 5:47 PM EST 10/18/2025 5:54 PM EST Aspen Parr MD LAB BLOOD ORDERABLES Final Resul t Performing Organization Address [facility] Co de Phone Number [facility] [address] * (ABNORMAL) Renal Function Panel w/EGFR (10/18/2025 5:47 PM EST) Sodium 144 133 - 146 mmol/L 10/18/2025 6:27 PM EST [facility] Potassium 3.4(L) 3.5 - 5.3 mmol/L 10/18/2025 6:27 PM EST [facility] Chloride 112(H) 98 - 110 mmol/L 10/18/2025 6:27 PM EST [facility] CO2 24 21 - 33 mmol/L 10/18/2025 6:27 PM [facility] Comment:High lactate dehydro genase concentrations in patient samples may cause falsely increased bicarbonate results. If markedly elevated LDH is observed or suspected, please assess results in conjunction with patient`s clinical presentation. In cases of discrepant results, consider evaluating CO2 in with a blood gas order. Anion Gap 8 3 - 16 mmol/L 10/18/2025 6:27 PM EST [facility] BUN 29(H) 7 - 25 mg/dL 10/18/2025 6:27 PM [facility] Creatinine 1.09 0.60 - 1.30 mg/dL 10/18/2025 6:27 PM [facility] Glucose 136(H) 70 - 100 mg/dL 10/18/2025 6:27 PM [facility] Calcium 7.5(L) 8.6 - 10.3 mg/dL 10/18/2025 6:27 PM [facility] Phosphorus 3.8 2.1 - 4.7 mg/dL 10/18/2025 6:40 PM [facility] Albumin 2.2(L) 3.5 - 5.7 g/dL 10/18/2025 6:40 PM [facility] Osmolality, Calculated 306(H) 278 - 305 mOsm/kg 10/18/2025 6:27 PM [facility] EGFR 76 10/18/2025 6:27 PM [facility] Comment:As of 2022, the [...] Resul t Performing Organization Address [facility] Co de Phone Number [facility] [address] [facility] [place]. [address] * (ABNORMAL) Protime-INR (10/18/2025 5:47 PM EST) Protime 21.8(H) 12.1 - 15.1 seconds 10/18/2025 6:13 PM EST [facility] INR 1.8(H) 0.9 - 1.1 10/18/2025 6:13 PM EST [facility] Comment: RECOMMENDED THERAPEUTIC RANGES USING INR : Stable oral anticoagulant therapy: 2.0 - 3.0 Mechanical prosthetic heart valve: 2.5 - 3.5 Recurrent acute myocardial infarction: 2.5 - 3.5 Plasma 10/18/2025 5:47 PM EST 10/18/2025 5:54 PM EST us Aspen Parr MD LAB BLOOD ORDERABLES Final Resul t Performing Organization Address [facility] Co de Phone Number [facility] [address] * (ABNORMAL) CBC (10/18/2025 5:47 PM EST) WBC 11.8(H) 3.8 - 10.8 10E3/uL 10/18/2025 6:06 PM EST [facility] RBC 3.06(L) 4.20 - 5.80 10E6/uL 10/18/2025 6:06 PM EST [facility] Hemoglobin 10.0(L) 13.2 - 17.1 g/dL 10/18/2025 6:06 PM EST [facility] Hematocrit 28.3(L) 38.5 - 50.0 % 10/18/2025 6:06 PM EST [facility] MCV 92.5 80.0 - 100.0 fL 10/18/2025 6:06 PM EST [facility] MCH 32.5 27.0 - 33.0 pg 10/18/2025 6:06 PM EST [facility] MCHC 35.2 32.0 - 36.0 g/dL 10/18/2025 6:06 PM EST [facility] RDW 18.6(H) 11.0 - 15.0 % 10/18/2025 6:06 PM EST [facility] Platelets 22(L) 140 - 400 10E3/uL 10/18/2025 6:06 PM EST [facility] Comment: CNV Specimen checked for clots. None detected. MPV 7.7 7.5 - 11.5 fL 10/18/2025 6:06 PM EST [facility] Whole Blood 10/18/2025 5:47 PM EST 10/18/2025 5:54 PM EST Aspen Parr MD LAB BLOOD ORDERABLES Final Resul t [facility] [address] * (ABNORMAL) POC Glucose Monitoring Device (10/18/2025 5:45 PM EST) POC Glucose Monitoring Device 135(H) 70 - 100 mg/dL 10/18/2025 5:46 PM EST [facility] Blood 10/18/2025 5:45 PM EST 10/18/2025 5:46 PM EST Vani Winkler MD POINT OF CARE TEST ORDERABLE S Final Result [facility] [address] * (ABNORMAL) POC Glucose Monitoring Device (10/18/2025 3:06 PM EST) POC Glucose Monitoring Device 128(H) 70 - 100 mg/dL 10/18/2025 3:07 PM EST [facility] Blood 10/18/2025 3:06 PM EST 10/18/2025 3:07 PM EST Vani Winkler MD POINT OF CARE TEST ORDERABLE S Final Result Performing Organization Address [facility] Co de Phone Number [facility] [address] [place] [address]. [address] * (ABNORMAL) POC Glucose Monitoring Device (10/18/2025 1:15 PM EST) POC Glucose Monitoring Device 128(H) 70 - 100 mg/dL 10/18/2025 1:15 PM EST [facility] Blood 10/18/2025 1:15 PM EST 10/18/2025 1:15 PM EST Vani Winkler MD POINT OF CARE TEST ORDERABLE S Final Result Performing Organization Address [facility] Co de Phone Number [address] * (ABNORMAL) POC Glucose Monitoring Device (10/18/2025 12:12 PM EST) POC Glucose Monitoring Device 124(H) 70 - 100 mg/dL 10/18/2025 12:13 PM EST [facility] Blood 10/18/2025 12:1 2 PM EST 10/18/2025 12:13 PM EST Vani Winkler MD POINT OF CARE TEST ORDERABLE S Final Result Performing Organization Address [facility] Co de Phone Number [address] * Prepare Fresh Frozen Plasma (10/18/2025 11:58 AM EST) Product Code [id number] HC[facility] Unit Number [id number] HCLL Dispense Status Released from Crossmatch_RE HCLL Blood Expiration Date HCLL Coding System [id number] HCLL Product Code N1122C18 HCLL Unit Number [id number] HCLL Dispense Status Released from Crossmatch_RE HCLL Blood Expiration Date HCLL Coding System [id number] HCLL Product Code K8486P68 HCLL Unit Number [id number] HCLL Dispense Status Released from Crossmatch_RE HCLL Blood Expiration Date HCLL Coding System [id number] HCLL Product Code D1772P48 HCLL Unit Number [id number] HCLL Dispense Status Released from Crossmatch_RE HCLL Blood Expiration Date HCLL Coding System [id number] HCLL Product Code S8200R42 HCLL Unit Number [id number] HCLL Dispense Status Released from Crossmatch_RE HCLL Blood Expiration Date HCLL Coding System [id number] HCLL us Attending Provider Unknown BLOOD BANK PRODUCT OR DERABLES Final Result HCL * Lactic Acid (10/18/2025 11:21 AM EST) Lactate 0.7 0.5 - 2.2 mmol/L 10/18/2025 12:05 PM EST [facility] Plasma 10/18/2025 11:2 1 AM EST 10/18/2025 11:25 AM EST us Aspen Parr MD LAB BLOOD ORDERABLES Final Resul t Performing Organization Address City/[facility]/ZIP Co de Phone Number [facility] [address] * Magnesium (10/18/2025 11:21 AM EST) Magnesium 2.0 1.5 - 2.5 mg/dL 10/18/2025 12:23 PM EST [facility] Plasma 10/18/2025 11:2 1 AM EST 10/18/2025 11:25 AM EST us Aspen Parr MD LAB BLOOD ORDERABLES Final Resul t [facility] [address] [facility]. [address] * (ABNORMAL) Hepatic Function Panel (10/18/2025 11:21 AM EST) Total Bilirubin 1.3 0.0 - 1.5 mg/dL 10/18/2025 12:23 PM EST [facility] Bilirubin, Direct 0.74(H) 0.00 - 0.40 mg/dL 10/18/2025 12:23 PM EST [facility] AST 1,689(H) 13 - 39 U/L 10/18/2025 12:23 PM EST [facility] ALT 1034(H) 7 - 52 U/L 10/18/2025 12:23 PM EST [facility] Alkaline Phosphatase 60 36 - 125 U/L 10/18/2025 12:23 PM EST [facility] Total Protein 4.3(L) 6.4 - 8.9 g/dL 10/18/2025 12:23 PM EST [facility] Albumin 2.3(L) 3.5 - 5.7 g/dL 10/18/2025 12:23 PM EST [facility] Bilirubin, Indirect 0.56 0.00 - 1.10 mg/dL 10/18/2025 12:23 PM EST [facility] Plasma 10/18/2025 11:2 1 AM EST 10/18/2025 11:25 AM EST us Aspen Parr MD LAB BLOOD ORDERABLES Final Resul t [facility] [address] * (ABNORMAL) Renal Function Panel w/EGFR (10/18/2025 11:21 AM EST) Sodium 146 133 - 146 mmol/L 10/18/2025 12:06 PM EST [facility] Potassium 3.9 3.5 - 5.3 mmol/L 10/18/2025 12:06 PM EST [facility] Chloride 114(H) 98 - 110 mmol/L 10/18/2025 12:06 PM EST [facility] CO2 25 21 - 33 mmol/L 10/18/2025 12:06 PM [facility] Comment:High lactate dehydro genase concentrations in patient samples may cause falsely increased bicarbonate results. If markedly elevated LDH is observed or suspected, please assess results in conjunction with patient`s clinical presentation. In cases of discrepant results, consider evaluating CO2 in with a blood gas order. Anion Gap 7 3 - 16 mmol/L 10/18/2025 12:06 PM [facility] BUN 26(H) 7 - 25 mg/dL 10/18/2025 12:06 PM [facility] Creatinine 1.01 0.60 - 1.30 mg/dL 10/18/2025 12:06 PM [facility] Glucose 113(H) 70 - 100 mg/dL 10/18/2025 12:06 PM [facility] Calcium 7.8(L) 8.6 - 10.3 mg/dL 10/18/2025 12:06 PM [facility] Phosphorus 3.1 2.1 - 4.7 mg/dL 10/18/2025 12:23 PM [facility] Albumin 2.3(L) 3.5 - 5.7 g/dL 10/18/2025 12:23 PM [facility] Osmolality, Calculated 308(H) 278 - 305 mOsm/kg 10/18/2025 12:06 PM [facility] EGFR 83 10/18/2025 12:06 PM [facility] Comment:As of 2022, the [...] ORDERABLES Final Resul t Performing Organization Address City/[facility] Co de Phone Number [facility] [address] [facility]. [address] * (ABNORMAL) Protime-INR (10/18/2025 11:21 AM EST) Protime 23.6(H) 12.1 - 15.1 seconds 10/18/2025 11:44 AM EST [facility] INR 2.0(H) 0.9 - 1.1 10/18/2025 11:44 AM EST [facility] Comment: RECOMMENDED THERAPEUTIC RANGES USING INR : Stable oral anticoagulant therapy: 2.0 - 3.0 Mechanical prosthetic heart valve: 2.5 - 3.5 Recurrent acute myocardial infarction: 2.5 - 3.5 Plasma 10/18/2025 11:2 1 AM EST 10/18/2025 11:25 AM EST us Aspen Parr MD LAB BLOOD ORDERABLES Final Resul t Performing Organization Address [facility] Co de Phone Number [facility] [address] [facility]. [address] * (ABNORMAL) CBC (10/18/2025 11:21 AM EST) WBC 10.9(H) 3.8 - 10.8 10E3/uL 10/18/2025 11:44 AM EST [facility] RBC 3.10(L) 4.20 - 5.80 10E6/uL 10/18/2025 11:44 AM EST [facility] Hemoglobin 10.2(L) 13.2 - 17.1 g/dL 10/18/2025 11:44 AM EST [facility] Hematocrit 29.0(L) 38.5 - 50.0 % 10/18/2025 11:44 AM EST [facility] MCV 93.7 80.0 - 100.0 fL 10/18/2025 11:44 AM EST [facility] MCH 32.9 27.0 - 33.0 pg 10/18/2025 11:44 AM EST [facility] MCHC 35.1 32.0 - 36.0 g/dL 10/18/2025 11:44 AM EST [facility] RDW 18.4(H) 11.0 - 15.0 % 10/18/2025 11:44 AM EST [facility] Platelets 29(L) 140 - 400 10E3/uL 10/18/2025 11:44 AM EST [facility] Comment:CNV MPV 7.6 7.5 - 11.5 fL 10/18/2025 11:44 AM EST [facility] Whole Blood 10/18/2025 11:2 1 AM EST 10/18/2025 11:25 AM EST Aspen Parr MD LAB BLOOD ORDERABLES Final Resul t [facility] [address] [facility] [place]. [address] * (ABNORMAL) POC Glucose Monitoring Device (10/18/2025 11:04 AM EST) POC Glucose Monitoring Device 121(H) 70 - 100 mg/dL 10/18/2025 11:05 AM EST [facility] Blood 10/18/2025 11:0 4 AM EST 10/18/2025 11:05 AM EST Vani Winkler MD POINT OF CARE TEST ORDERABLE S Final Result [facility] [address] [facility] [place]. [address] * (ABNORMAL) POC Glucose Monitoring Device (10/18/2025 10:29 AM EST) POC Glucose Monitoring Device 120(H) 70 - 100 mg/dL 10/18/2025 10:34 AM EST [facility] Blood 10/18/2025 10:2 9 AM EST 10/18/2025 10:34 AM EST Vani Winkler MD POINT OF CARE TEST ORDERABLE S Final Result [facility] [address] [place] [address], [facility] * US Duplex Glr-Pfc-Jqgpnie Comp (10/18/2025 9:35 AM EST) Anatomical Region [...] EXAM: US ABDOMEN LIMITED EXAM: US DUPLEX [id number] COMPLETE INDICATION: Post-op liver transplant Day 1 [...] EXAM: US ABDOMEN LIMITED EXAM: US DUPLEX [id number] COMPLETE INDICATION: Post-op liver transplant Day 1 [...] 9:53 AM EST us Aspen Parr MD [facility] ORDERABLES Final Result * US Abdomen [...] EXAM: US ABDOMEN LIMITED EXAM: US DUPLEX [id number] COMPLETE INDICATION: Post-op liver transplant Day 1 [...] EXAM: US ABDOMEN LIMITED EXAM: US DUPLEX [id number] COMPLETE INDICATION: Post-op liver transplant Day 1 [...] 9:53 AM EST us Aspen Parr MD [facility] US ORDERABLES Final Result * (ABNORMAL) POC Glucose Monitoring Device (10/18/2025 9:11 AM EST) POC Glucose Monitoring Device 165(H) 70 - 100 mg/dL 10/18/2025 9:13 AM EST [facility] Blood 10/18/2025 9:11 AM EST 10/18/2025 9:12 AM EST Vani Winkler MD POINT OF CARE TEST ORDERABLE S Final Result [facility] [address] [facility] [place]. [address] * (ABNORMAL) POC Glucose Monitoring Device (10/18/2025 7:56 AM EST) POC Glucose Monitoring Device 179(H) 70 - 100 mg/dL 10/18/2025 7:57 AM EST [facility] Blood 10/18/2025 7:56 AM EST 10/18/2025 7:57 AM EST Vani Winkler MD POINT OF CARE TEST ORDERABLE S Final Result Performing Organization Address City/[facility] Co de Phone Number [facility] [address] [facility] [place]. [address] * (ABNORMAL) POC Glucose Monitoring Device (10/18/2025 6:59 AM EST) POC Glucose Monitoring Device 187(H) 70 - 100 mg/dL 10/18/2025 7:00 AM EST [facility] Blood 10/18/2025 6:59 AM EST 10/18/2025 7:00 AM EST Vani Winkler MD POINT OF CARE TEST ORDERABLE S Final Result Performing Organization Address City/[facility]/ZIP Co de Phone Number [facility] [address] [facility] [place]. [address] * X-ray Portable Chest (10/18/2025 6:37 [...] below level of diaphragms and outside the [id number]. Right internal jugular approach pulmonary artery catheter [...] courses below level of diaphragms andoutside the xvjfc-vc-icck. Right internal jugular approach pulmonaryartery catheter projects [...] 7:02 AM EST us Aspen Parr MD [facility] ORDERABLE S Final Result * Prepare Platelets, leukoreduced, 1 Units (10/18/2025 6:17 AM EST) Product Code I6493R44 HCLL Unit Number [id number] HCLL Dispense Status Presumed Transfused_PT HCLL Blood Expiration Date HCLL Coding System [id number] HCLL Blood Bank Product Oskar Torres MD BLOOD BANK PRODUCT ORDERABLES Final Result Performing Organization Address [facility] Co de Phone Number HCLL * Prepare Platelets, leukoreduced, 2 Units (10/18/2025 6:17 AM EST) Product Code DZ158U31 HCLL Unit Number [id number] HCLL Dispense Status Presumed Transfused_PT HCLL Blood Expiration Date HCLL Coding System [id number] HCLL Product Code C3850N83 HCLL Unit Number [id number] HCLL Dispense Status Presumed Transfused_PT HCLL Blood Expiration Date HCLL Coding System [id number] HCLL Blood Bank Product Slade Munoz MD BLOOD BANK PRODUCT ORDERABLES Fi nal Result Performing Organization Address [facility] de Phone Number HCLL * Prepare RBC, leukoreduced, 5 Units (10/18/2025 6:16 AM EST) Product Code J4448R39 HCLL Unit Number [id number] HCLL Dispense Status Presumed Transfused_PT HCLL Blood Expiration Date HCLL Coding System YQCH344 HCLL Product Code S7638L27 HCLL Unit Number [id number] HCLL Dispense Status Presumed Transfused_PT HCLL Blood Expiration Date HCLL Coding System UOSX681 HCLL Product Code L0241O86 HCLL Unit Number [id number] HCLL Dispense Status Presumed Transfused_PT HCLL Blood Expiration Date HCLL Coding System HAVD400 HCLL Product Code X1529I34 HCLL Unit Number [id number] HCLL Dispense Status Released from Crossmatch_RE HCLL Blood Expiration Date HCLL Coding System HYEZ945 HCLL Product Code F8227W83 HCLL Unit Number [id number] HCLL Dispense Status Presumed Transfused_PT HCLL Blood Expiration Date HCLL Coding System [id number] HCLL Blood Bank Product Kassi INTERIANO BLOOD BANK PRODUCT ORDERABLES Final Result Performing Organization Address [facility] Co de Phone Number HCLL * Prepare Cryoprecipitate (10/18/2025 6:15 AM EST) Product Code D6487A02 HCLL Unit Number [id number] HCLL Dispense Status Presumed Transfused_PT HCLL Blood Expiration Date HCLL Coding System [id number] HCLL Attending Provider Unknown BLOOD BANK PRODUCT OR DERABLES Final Result Performing Organization Address [facility] de Phone Number HCLL * Prepare Cryoprecipitate, 1 Units (10/18/2025 6:15 AM EST) Product Code L2082B08 HCLL Unit Number [id number] HCLL Dispense Status Presumed Transfused_PT HCLL Blood Expiration Date HCLL Coding System [id number] HCLL Blood Bank Product Oskar Torres MD BLOOD BANK PRODUCT ORDERABLES Final Result Performing Organization Address [facility] Co de Phone Number HCLL * Prepare Cryoprecipitate, 1 Units (10/18/2025 6:15 AM EST) Product Code P9841K28 HCLL Unit Number [id number] HCLL Dispense Status Presumed Transfused_PT HCLL Blood Expiration Date HCLL Coding System WFNM971 HCLL Product Code T0864J75 HCLL Unit Number [id number] HCLL Dispense Status Presumed Transfused_PT HCLL Blood Expiration Date HCLL Coding System TTLH397 HCLL Blood Bank Product Shannan Salas MD BLOOD BANK PRODUCT ORDERABLE S Final Result Performing Organization Address [facility] de Phone Number HCLL * Prepare Cryoprecipitate, 1 Units (10/18/2025 6:15 AM EST) Product Code F3024M97 HCLL Unit Number [id number] HCLL Dispense Status Presumed Transfused_PT HCLL Blood Expiration Date HCLL Coding System UAHU267 HCLL Blood Bank Product Slade Munoz MD BLOOD BANK PRODUCT ORDERABLES Fi nal Result Performing Organization Address [facility] de Phone Number HCLL * Prepare Cryoprecipitate, 1 Units (10/18/2025 6:15 AM EST) Product Code M6670F34 HCLL Unit Number [id number] HCLL Dispense Status Presumed Transfused_PT HCLL Blood Expiration Date HCLL Coding System [id number] HCLL Blood Bank Product Slade Munoz MD BLOOD BANK PRODUCT ORDERABLES Fi nal Result Performing Organization Address [facility] de Phone Number HCLL * Prepare RBC, leukoreduced (10/18/2025 6:15 AM EST) Product Code K5546O82 HCLL Unit Number [id number] HCLL Dispense Status Released from Crossmatch_RE HCLL Blood Expiration Date HCLL Coding System XYPL846 HCLL Product Code P2502Z24 HCLL Unit Number [id number] HCLL Dispense Status Released from Crossmatch_RE HCLL Blood Expiration Date HCLL Coding System JGMP814 HCLL Product Code B3388L35 HCLL Unit Number [id number] HCLL Dispense Status Released from Crossmatch_RE HCLL Blood Expiration Date HCLL Coding System KDEO910 HCLL Product Code X7573Z90 HCLL Unit Number [id number] HCLL Dispense Status Released from Crossmatch_RE HCLL Blood Expiration Date HCLL Coding System WSKA347 HCLL Product Code C3524U49 HCLL Unit Number [id number] HCLL Dispense Status Presumed Transfused_PT HCLL Blood Expiration Date HCLL Coding System GNAE548 HCLL us Attending Provider Unknown BLOOD BANK PRODUCT OR DERABLES Final Result HCLL * Prepare Fresh Frozen Plasma, 5 Units (10/18/2025 6:15 AM EST) Product Code T5459N76 HCLL Unit Number [id number] HCLL Dispense Status Presumed Transfused_PT HCLL Blood Expiration Date HCLL Coding System XUAG703 HCLL Product Code H6781Z73 HCLL Unit Number [id number] HCLL Dispense Status Presumed Transfused_PT HCLL Blood Expiration Date HCLL Coding System [id number] HCLL Product Code [id number] HCLL Unit Number [id number] HCLL Dispense Status Presumed Transfused_PT HCLL Blood Expiration Date HCLL Coding System [id number] HCLL Product Code [id number] HCLL Unit Number [id number] HCLL Dispense Status Presumed Transfused_PT HCLL Blood Expiration Date HCLL Coding System [id number] HCLL Product Code P5235C96 HCLL Unit Number [id number] HCLL Dispense Status Presumed Transfused_PT HCLL Blood Expiration Date HCLL Coding System [id number] HCLL Blood Bank Product Kassi INTERIANO BLOOD BANK PRODUCT ORDERABLES Final Result HCLL * (ABNORMAL) POC Glucose Monitoring Device (10/18/2025 6:06 AM EST) POC Glucose Monitoring Device 214(H) 70 - 100 mg/dL 10/18/2025 6:06 AM EST [facility] Blood 10/18/2025 6:06 AM EST 10/18/2025 6:06 AM EST Vani Winkler MD POINT OF CARE TEST ORDERABLE S Final Result [facility] [address] * (ABNORMAL) Blood gas, arterial (10/18/2025 5:19 AM EST) O2 Sat, Arterial 97 10/18/2025 5:28 AM EST [facility] FIO2 40 10/18/2025 5:28 AM [facility] pH, Arterial 7.34(L) 7.35 - 7.45 10/18/2025 5:28 AM [facility] pCO2, Arterial 48(H) 35 - 45 mm Hg 10/18/2025 5:28 AM [facility] pO2, Arterial 84 80 - 100 mm Hg 10/18/2025 5:28 AM [facility] HCO3, Arterial 25 22 - 26 mmol/L 10/18/2025 5:28 AM [facility] CO2 Content,Arteri al 27 23 - 27 mmol/L 10/18/2025 5:28 AM [facility] Base Excess, Arterial -0.2 -2.0 - 3.0 mmol/L 10/18/2025 5:28 AM [facility] %HBO2, Arterial 94.1(L) 95.0 - 98.0 % 10/18/2025 5:28 AM [facility] Carboxyhemoglo bin, Arterial 2.5 % 10/18/2025 5:28 AM EST [facility] Comment: CARBOXYHEMOGLOBIN (CO) REFERENCE RANGES: Non-Smokers: <2 % Smokers: <8 % TOXIC: >20 % Methemoglobin, Arterial 0.5 0.0 - 1.5 % 10/18/2025 5:28 AM EST [facility] Blood, Arterial 10/18/2025 5 :19 AM EST 10/18/2025 5:25 AM EST us Vani Winkler MD LAB BLOOD ORDERABLES Final R esult [facility] [address] [place] [address] * Lactic Acid (10/18/2025 5:02 AM EST) Lactate 1.0 0.5 - 2.2 mmol/L 10/18/2025 5:47 AM EST [facility] Plasma 10/18/2025 5:02 AM EST 10/18/2025 5:09 AM EST us Aspen Parr MD LAB BLOOD ORDERABLES Final Resul t Performing Organization Address [facility] Co de Phone Number [facility] [address] [facility] [place]. [address] * Magnesium (10/18/2025 5:02 AM EST) Magnesium 2.0 1.5 - 2.5 mg/dL 10/18/2025 6:05 AM EST [facility] Plasma 10/18/2025 5:02 AM EST 10/18/2025 5:13 AM EST Aspen Parr MD LAB BLOOD ORDERABLES Final Resul t Performing Organization Address City/[facility] Co de Phone Number [facility] [address] [place] [address]. [address] * (ABNORMAL) Hepatic Function Panel (10/18/2025 5:02 AM EST) Total Bilirubin 1.5 0.0 - 1.5 mg/dL 10/18/2025 6:05 AM EST [facility] Bilirubin, Direct 0.77(H) 0.00 - 0.40 mg/dL 10/18/2025 6:05 AM EST [facility] AST 2,612(H) 13 - 39 U/L 10/18/2025 6:05 AM [facility] ALT 1072(H) 7 - 52 U/L 10/18/2025 6:05 AM [facility] Alkaline Phosphatase 50 36 - 125 U/L 10/18/2025 6:05 AM [facility] Total Protein 4.0(L) 6.4 - 8.9 g/dL 10/18/2025 6:05 AM [facility] Albumin 2.2(L) 3.5 - 5.7 g/dL 10/18/2025 6:05 AM [facility] Bilirubin, Indirect 0.73 0.00 - 1.10 mg/dL 10/18/2025 6:05 AM [facility] Plasma 10/18/2025 5:02 AM EST 10/18/2025 5:13 AM EST us Aspen Parr MD LAB BLOOD ORDERABLES Final Resul t [facility] [address] [place] [id number] * (ABNORMAL) Renal Function Panel w/EGFR (10/18/2025 5:02 AM EST) Sodium 146 133 - 146 mmol/L 10/18/2025 6:05 AM [facility] Potassium 3.4(L) 3.5 - 5.3 mmol/L 10/18/2025 6:05 AM [facility] Chloride 111(H) 98 - 110 mmol/L 10/18/2025 6:05 AM [facility] CO2 26 21 - 33 mmol/L 10/18/2025 6:05 AM [facility] Comment:High lactate dehydro genase concentrations in patient samples may cause falsely increased bicarbonate results. If markedly elevated LDH is observed or suspected, please assess results in conjunction with patient`s clinical presentation. In cases of discrepant results, consider evaluating CO2 in with a blood gas order. Anion Gap 9 3 - 16 mmol/L 10/18/2025 6:05 AM EST [facility] BUN 22 7 - 25 mg/dL 10/18/2025 6:05 AM EST [facility] Creatinine 0.93 0.60 - 1.30 mg/dL 10/18/2025 6:05 AM [facility] Glucose 193(H) 70 - 100 mg/dL 10/18/2025 6:05 AM EST [facility] Calcium 7.8(L) 8.6 - 10.3 mg/dL 10/18/2025 6:05 AM [facility] Phosphorus 3.0 2.1 - 4.7 mg/dL 10/18/2025 6:05 AM EST [facility] Albumin 2.2(L) 3.5 - 5.7 g/dL 10/18/2025 6:05 AM EST [facility] Osmolality, Calculated 311(H) 278 - 305 mOsm/kg 10/18/2025 6:05 AM EST [facility] EGFR >90 10/18/2025 6:05 AM [facility] Comment: As of 2022, [...] Resul t Performing Organization Address [facility] Co de Phone Number [facility] [address] [facility] [place]. [address] * (ABNORMAL) Protime-INR (10/18/2025 5:02 AM EST) Protime 26.0(H) 12.1 - 15.1 seconds 10/18/2025 5:32 AM EST [facility] INR 2.2(H) 0.9 - 1.1 [...] Resul t Performing Organization Address [facility] Co de Phone Number [facility] [address] * (ABNORMAL) CBC (10/18/2025 5:02 AM EST) WBC 7.0 3.8 - 10.8 10E3/uL 10/18/2025 5:27 AM EST [facility] RBC 2.94(L) 4.20 - 5.80 10E6/uL 10/18/2025 5:27 AM EST [facility] Hemoglobin 9.6(L) 13.2 - 17.1 g/dL 10/18/2025 5:27 AM EST [facility] Hematocrit 27.6(L) 38.5 - 50.0 % 10/18/2025 5:27 AM EST [facility] MCV 94.0 80.0 - 100.0 fL 10/18/2025 5:27 AM EST [facility] MCH 32.6 27.0 - 33.0 pg 10/18/2025 5:27 AM EST [facility] MCHC 34.7 32.0 - 36.0 g/dL 10/18/2025 5:27 AM EST [facility] RDW 19.0(H) 11.0 - 15.0 % 10/18/2025 5:27 AM EST [facility] Platelets 36(L) 140 - 400 10E3/uL 10/18/2025 5:27 AM EST [facility] Comment:CNV MPV 8.1 7.5 - 11.5 fL 10/18/2025 5:27 AM EST [facility] Whole Blood 10/18/2025 5:02 AM EST 10/18/2025 5:13 AM EST Aspen Parr MD LAB BLOOD ORDERABLES Final Resul t [facility] [address] [facility] [place]. [address] * (ABNORMAL) POC Glucose Monitoring Device (10/18/2025 5:00 AM EST) POC Glucose Monitoring Device 231(H) 70 - 100 mg/dL 10/18/2025 5:06 AM EST [facility] Blood 10/18/2025 5:00 AM EST 10/18/2025 5:06 AM EST Vani Winkler MD POINT OF CARE TEST ORDERABLE S Final Result Performing Organization Address City/[facility]/ZIP Co de Phone Number [facility] [address] [facility] [place]. [address] * (ABNORMAL) POC Glucose Monitoring Device (10/18/2025 4:05 AM EST) POC Glucose Monitoring Device 244(H) 70 - 100 mg/dL 10/18/2025 4:06 AM EST [facility] Blood 10/18/2025 4:05 AM EST 10/18/2025 4:06 AM EST Vani Winkler MD POINT OF CARE TEST ORDERABLE S Final Result [facility] [address] [facility] [place]. [address] * (ABNORMAL) POC Glucose Monitoring Device (10/18/2025 3:02 AM EST) POC Glucose Monitoring Device 246(H) 70 - 100 mg/dL 10/18/2025 3:07 AM EST [facility] Blood 10/18/2025 3:02 AM EST 10/18/2025 3:07 AM EST Vani Winkler MD POINT OF CARE TEST ORDERABLE S Final Result [facility] [address] [facility] [place]. [address] * (ABNORMAL) POC Glucose Monitoring Device (10/18/2025 2:05 AM EST) POC Glucose Monitoring Device 249(H) 70 - 100 mg/dL 10/18/2025 2:14 AM EST [facility] Blood 10/18/2025 2:05 AM EST 10/18/2025 2:14 AM EST Vani Winkler MD POINT OF CARE TEST ORDERABLE S Final Result Performing Organization Address City/[facility] Co de Phone Number [facility] [address] [facility] [place]. [address] * (ABNORMAL) POC Glucose Monitoring Device (10/18/2025 1:06 AM EST) POC Glucose Monitoring Device 237(H) 70 - 100 mg/dL 10/18/2025 1:07 AM EST [facility] Blood 10/18/2025 1:06 AM EST 10/18/2025 1:07 AM EST Vani Winkler MD POINT OF CARE TEST ORDERABLE S Final Result [facility] [address] [facility] [place]. [address] * (ABNORMAL) POC Glucose Monitoring Device (10/17/2025 11:55 PM EST) POC Glucose Monitoring Device 227(H) 70 - 100 mg/dL 10/18/2025 12:06 AM EST [facility] Blood 10/17/2025 11:5 5 PM EST 10/18/2025 12:06 AM EST us Vani Winkler MD POINT OF CARE TEST ORDERABLE S Final Result [facility] [address] [place] [id number], [facility] * XR Portable Feeding Tube Check (10/17/2025 [...] 10/17/2025 11:50 PM EST Aspen Parr MD [facility] ORDERABLE S Final Result * Calcium Free, Serum (10/17/2025 10:50 PM EST) Free Calcium, Ser 4.76 4.40 - 5.40 mg/dL 10/17/2025 11:15 PM EST [facility] Comment:Free calcium levels vary inversely with pH by approximately 5% for each 0.1 unit of pH change. Assay results have been normalized to pH = 7.40. Serum 10/17/2025 10:5 0 PM EST 10/17/2025 10:55 PM EST [facility] - 10/17/2025 11:15 PM EST This test has been developed and its performance characteristics determined by [facility] which is certified under [...] El MD LAB BLOOD ORDERABLES Final Result [facility] [address] [place] [address], [facility] * (ABNORMAL) TEG-Standard Global Hemostasis (Rapid TEG with Heparin Effect, Contains a Baseline TEG) (10/17/2025 10:50 PM EST) [facility] Citrated Kaolin Reaction Time (TEGHEPARINASE) 12.7(H) 4.6 - 9.1 minutes 10/18/2025 12:03 AM EST [facility] Citrated Rapid Teg Maximum Amplitude (TEGHEPARINASE) 47.8(L) 52.0 - 70.0 mm 10/18/2025 12:03 AM EST [facility] Citrated Functional Fibrinogen Maximum Amplitude (TEGHEPARINASE) 16.8 15.0 - 32.0 mm 10/18/2025 12:03 AM EST [facility] Citrated Kaolin W/Heparinase Reaction Time (TEGHEPARINASE) 11.0(H) 4.3 - 8.3 minutes 10/18/2025 12:03 AM EST [facility] Citrated Kaolin K-Time (TEGHEPARINASE) 4.9(H) 0.8 - 2.1 minutes 10/18/2025 12:03 AM EST [facility] Citrated Kaolin Angle (TEGHEPARINASE) 40.0(L) 63.0 - 78.0 degrees 10/18/2025 12:03 AM EST [facility] Citrated Kaolin Maximum Amplitude (TEGHEPARINASE) 45.2(L) 52.0 - 69.0 mm 10/18/2025 12:03 AM EST [facility] Citrated Functional Fibrinogen- Fibrinogen Level (TEGHEPARINASE) 306.6 278.0 - 581.0 mg/dL 10/18/2025 12:03 AM EST [facility] Whole Blood (Citrate) 10/17/2025 10:50 PM EST 10/17/2025 10:55 PM EST us Aspen Parr MD LAB BLOOD ORDERABLES Final Resul t [facility] [address] [facility] [place]. [address] * Lactic Acid (10/17/2025 10:50 PM EST) Lactate 1.1 0.5 - 2.2 mmol/L 10/17/2025 11:51 PM EST [facility] Plasma 10/17/2025 10:5 0 PM EST 10/17/2025 10:55 PM EST Aspen Parr MD LAB BLOOD ORDERABLES Final Resul t Performing Organization Address [facility] Co de Phone Number [facility] [address] [facility] [place]. [address] * Fibrinogen (10/17/2025 10:50 PM EST) Fibrinogen 253 218 - 406 mg/dL 10/17/2025 11:06 PM EST [facility] Plasma 10/17/2025 10:5 0 PM EST 10/17/2025 10:55 PM EST Aspen Parr MD LAB BLOOD ORDERABLES Final Resul t Performing Organization Address City/[facility] Co de Phone Number [facility] [address] [facility] [place]. [address] * (ABNORMAL) Protime-INR (10/17/2025 10:50 PM EST) Protime 25.2(H) 12.1 - 15.1 seconds 10/17/2025 11:06 PM EST [facility] INR 2.1(H) 0.9 - 1.1 10/17/2025 11:06 PM EST [facility] Comment: RECOMMENDED THERAPEUTIC RANGES USING INR : Stable oral anticoagulant therapy: 2.0 - 3.0 Mechanical prosthetic heart valve: 2.5 - 3.5 Recurrent acute myocardial infarction: 2.5 - 3.5 Plasma 10/17/2025 10:5 0 PM EST 10/17/2025 10:55 PM EST us Aspen Parr MD LAB BLOOD ORDERABLES Final Resul t [facility] [address] [place] [address], [facility] * (ABNORMAL) Blood gas, arterial (10/17/2025 10:50 PM EST) O2 Sat, Arterial 100 10/17/2025 11:00 PM EST [facility] FIO2 80 fio2 10/17/2025 11:00 PM EST [facility] pH, Arterial 7.38 7.35 - 7.45 10/17/2025 11:00 PM EST [facility] pCO2, Arterial 41 35 - 45 mm Hg 10/17/2025 11:00 PM EST [facility] pO2, Arterial 216(H) 80 - 100 mm Hg 10/17/2025 11:00 PM EST [facility] HCO3, Arterial 24 22 - 26 mmol/L 10/17/2025 11:00 PM EST [facility] CO2 Content,Arteri al 26 23 - 27 mmol/L 10/17/2025 11:00 PM EST [facility] Base Excess, Arterial -0.8 -2.0 - 3.0 mmol/L 10/17/2025 11:00 PM EST [facility] %HBO2, Arterial 95.2 95.0 - 98.0 % 10/17/2025 11:00 PM EST [facility] Carboxyhemoglo bin, Arterial 3.3 % 10/17/2025 11:00 PM EST [facility] Comment: CARBOXYHEMOGLOBIN (CO) REFERENCE RANGES: Non-Smokers: <2 % Smokers: <8 % TOXIC: >20 % Methemoglobin, Arterial 1.6(H) 0.0 - 1.5 % 10/17/2025 11:00 PM EST [facility] Blood, Arterial 10/17/2025 1 0:50 PM EST 10/17/2025 10:55 PM EST us Aspen Parr MD LAB BLOOD ORDERABLES Final Resul t [facility] [address] * Magnesium (10/17/2025 10:50 PM EST) Magnesium 1.8 1.5 - 2.5 mg/dL 10/18/2025 12:13 AM EST [facility] Plasma 10/17/2025 10:5 0 PM EST 10/17/2025 10:55 PM EST Aspen Parr MD LAB BLOOD ORDERABLES Final Resul t Performing Organization Address City/State/[facility] Co de Phone Number [facility] [address] * (ABNORMAL) Hepatic Function Panel (10/17/2025 10:50 PM EST) Total Bilirubin 4.5(H) 0.0 - 1.5 mg/dL 10/18/2025 12:13 AM EST [facility] Bilirubin, Direct 3.22(H) 0.00 - 0.40 mg/dL 10/18/2025 12:13 AM EST [facility] AST 3,332(H) 13 - 39 U/L 10/18/2025 12:13 AM EST [facility] ALT 1141(H) 7 - 52 U/L 10/18/2025 12:13 AM EST [facility] Alkaline Phosphatase 63 36 - 125 U/L 10/18/2025 12:13 AM EST [facility] Total Protein 4.0(L) 6.4 - 8.9 g/dL 10/18/2025 12:13 AM EST [facility] Albumin 2.2(L) 3.5 - 5.7 g/dL 10/18/2025 12:13 AM EST [facility] Bilirubin, Indirect 1.28(H) 0.00 - 1.10 mg/dL 10/18/2025 12:13 AM EST [facility] Plasma 10/17/2025 10:5 0 PM EST 10/17/2025 10:55 PM EST Aspen Parr MD LAB BLOOD ORDERABLES Final Resul t [facility] [address] [place] [address], [facility] * (ABNORMAL) Renal Function Panel w/EGFR (10/17/2025 10:50 PM EST) Sodium 145 133 - 146 mmol/L 10/18/2025 12:13 AM EST [facility] Potassium 3.7 3.5 - 5.3 mmol/L 10/18/2025 12:13 AM EST [facility] Chloride 110 98 - 110 mmol/L 10/18/2025 12:13 AM EST [facility] CO2 27 21 - 33 mmol/L 10/18/2025 12:13 AM EST [facility] Comment:High lactate dehydro genase concentrations in patient samples may cause falsely increased bicarbonate results. If markedly elevated LDH is observed or suspected, please assess results in conjunction with patient`s clinical presentation. In cases of discrepant results, consider evaluating CO2 in with a blood gas order. Anion Gap 8 3 - 16 mmol/L 10/18/2025 12:13 AM EST [facility] BUN 17 7 - 25 mg/dL 10/18/2025 12:13 AM EST [facility] Creatinine 0.79 0.60 - 1.30 mg/dL 10/18/2025 12:13 AM EST [facility] Glucose 225(H) 70 - 100 mg/dL 10/18/2025 12:13 AM EST [facility] Calcium 8.2(L) 8.6 - 10.3 mg/dL 10/18/2025 12:13 AM EST [facility] Phosphorus 3.9 2.1 - 4.7 mg/dL 10/18/2025 12:13 AM EST [facility] Albumin 2.2(L) 3.5 - 5.7 g/dL 10/18/2025 12:13 AM [facility] Osmolality, Calculated 309(H) 278 - 305 mOsm/kg 10/18/2025 12:13 AM EST [facility] EGFR >90 10/18/2025 12:13 AM [facility] Comment: As of 2022, [...] MD LAB BLOOD ORDERABLES Final Resul t [facility] [address] * (ABNORMAL) CBC (10/17/2025 10:50 PM EST) WBC 5.8 3.8 - 10.8 10E3/uL 10/17/2025 11:03 PM EST [facility] RBC 2.93(L) 4.20 - 5.80 10E6/uL 10/17/2025 11:03 PM EST [facility] Hemoglobin 9.5(L) 13.2 - 17.1 g/dL 10/17/2025 11:03 PM EST [facility] Hematocrit 27.5(L) 38.5 - 50.0 % 10/17/2025 11:03 PM EST [facility] MCV 93.9 80.0 - 100.0 fL 10/17/2025 11:03 PM EST [facility] MCH 32.6 27.0 - 33.0 pg 10/17/2025 11:03 PM EST [facility] MCHC 34.7 32.0 - 36.0 g/dL 10/17/2025 11:03 PM EST [facility] RDW 18.1(H) 11.0 - 15.0 % 10/17/2025 11:03 PM EST [facility] Platelets 52(L) 140 - 400 10E3/uL 10/17/2025 11:03 PM EST [facility] MPV 7.1(L) 7.5 - 11.5 fL 10/17/2025 11:03 PM EST [facility] Whole Blood 10/17/2025 10:5 0 PM EST 10/17/2025 10:55 PM EST us Aspen Parr MD LAB BLOOD ORDERABLES Final Resul t [facility] [address] [facility] [place]. [address] * (ABNORMAL) POC Glucose Monitoring Device (10/17/2025 10:47 PM EST) POC Glucose Monitoring Device 234(H) 70 - 100 mg/dL 10/17/2025 10:48 PM EST [facility] Blood 10/17/2025 10:4 7 PM EST 10/17/2025 10:47 PM EST Vani Winkler MD POINT OF CARE TEST ORDERABLE S Final Result Performing Organization Address City/[facility]/ZIP Co de Phone Number [facility] [address] [facility] [place]. [address] * POC Sample Type (10/17/2025 9:25 PM EST) POC Sample Type Arterial 10/17/2025 9:51 PM EST [facility] Blood, Arterial 10/17/2025 9 :25 PM EST 10/17/2025 9:51 PM EST Vani Winkler MD POINT OF CARE TEST ORDERABLE S Final Result Performing Organization Address City/[facility]/ZIP Co de Phone Number [facility] [address] [facility] [place]. [address] * POC Anion Gap (10/17/2025 9:25 PM EST) POC Anion Gap, Arterial 9 3 - 16 mmol/L 10/17/2025 9:51 PM EST [facility] Blood, Arterial 10/17/2025 9 :25 PM EST 10/17/2025 9:51 PM EST Vani Winkler MD POINT OF CARE TEST ORDERABLE S Final Result [facility] [address] [place] [address]. [address] * (ABNORMAL) POC Chloride (10/17/2025 9:25 PM EST) Pathologist [facility] POC Chloride 111(H) 98 - 110 mmol/L 10/17/2025 9:51 PM EST [facility] Blood, Arterial 10/17/2025 9 :25 PM EST 10/17/2025 9:51 PM EST us Vani Winkler MD POINT OF CARE TEST ORDERABLE S Final Result Performing Organization Address City/[facility] Co de Phone Number [facility] [address] [place] [address]. [address] * (ABNORMAL) POC Hemoglobin (10/17/2025 9:25 PM EST) Pathologist [facility] POC Hemoglobin 9.0(L) 14.0 - 18.0 g/dL 10/17/2025 9:51 PM EST [facility] Blood, Arterial 10/17/2025 9 :25 PM EST 10/17/2025 9:51 PM EST Vani Winkler MD POINT OF CARE TEST ORDERABLE S Final Result Performing Organization Address City/[facility]/ZIP Co de Phone Number [facility] [address] [place] [address]. [address] * (ABNORMAL) POC hematocrit (10/17/2025 9:25 PM EST) POC Hematocrit 26.0(L) 40 - 52 % 10/17/2025 9:51 PM EST [facility] Blood, Arterial 10/17/2025 9 :25 PM EST 10/17/2025 9:51 PM EST Vani Winkler MD POINT OF CARE TEST ORDERABLE S Final Result [facility] [address] [place] [address]. [address] * POC Lactate (10/17/2025 9:25 PM EST) [facility] POC Lactate 1.50 0.50 - 2.20 mmol/L 10/17/2025 9:51 PM EST [facility] Blood, Arterial 10/17/2025 9 :25 PM EST 10/17/2025 9:51 PM EST Vani Winkler MD POINT OF CARE TEST ORDERABLE S Final Result Performing Organization Address City/[facility]/ZIP Co de Phone Number [facility] [address] [facility] [place]. [address] * (ABNORMAL) POC Glucose (10/17/2025 9:25 PM EST) [facility] POC Glucose, Arterial 227(H) 70 - 100 mg/dL 10/17/2025 9:51 PM EST [facility] Blood, Arterial 10/17/2025 9 :25 PM EST 10/17/2025 9:51 PM EST Vani Winkler MD POINT OF CARE TEST ORDERABLE S Final Result [facility] [address] [facility] [place]. [address] * POC Ionized Calcium (10/17/2025 9:25 PM EST) [facility] POC Ionized Calcium 4.90 4.50 - 5.30 mg/dL 10/17/2025 9:51 PM EST [facility] Blood, Arterial 10/17/2025 9 :25 PM EST 10/17/2025 9:51 PM EST Vani Winkler MD POINT OF CARE TEST ORDERABLE S Final Result [facility] [address] [facility] [place]. [address] * POC Potassium (10/17/2025 9:25 PM EST) POC Potassium 3.7 3.5 - 5.3 mmol/L 10/17/2025 9:51 PM EST [facility] Blood, Arterial 10/17/2025 9 :25 PM EST 10/17/2025 9:51 PM EST us Vani Winkler MD POINT OF CARE TEST ORDERABLE S Final Result Performing Organization Address City/[facility]/ZIP Co de Phone Number [facility] [address] [facility] [place]. [address] * POC Sodium (10/17/2025 9:25 PM EST) POC Sodium 142 136 - 146 mmol/L 10/17/2025 9:51 PM EST [facility] Blood, Arterial 10/17/2025 9 :25 PM EST 10/17/2025 9:51 PM EST Vani Winkler MD POINT OF CARE TEST ORDERABLE S Final Result [facility] [address] [facility] [place]. [address] * POC TCO2 (10/17/2025 9:25 PM EST) POC TCO2, Arterial 23 23 - 27 mmol/L 10/17/2025 9:51 PM EST [facility] Blood, Arterial 10/17/2025 9 :25 PM EST 10/17/2025 9:51 PM EST Vani Winkler MD POINT OF CARE TEST ORDERABLE S Final Result [facility] [address] * (ABNORMAL) POC O2 SAT (10/17/2025 9:25 PM EST) POC O2 Saturation, Arterial 99(H) 95 - 98 % 10/17/2025 9:51 PM EST [facility] Blood, Arterial 10/17/2025 9 :25 PM EST 10/17/2025 9:51 PM EST us Vani Winkler MD POINT OF CARE TEST ORDERABLE S Final Result Performing Organization Address [facility]/ZIP Co de Phone Number [facility] [address] * (ABNORMAL) POC Base Excess (10/17/2025 9:25 PM EST) POC Base Excess, Arterial -3(L) -2 - 3 mmol/L 10/17/2025 9:51 PM EST [facility] Blood, Arterial 10/17/2025 9 :25 PM EST 10/17/2025 9:51 PM EST Vani Winkler MD POINT OF CARE TEST ORDERABLE S Final Result Performing Organization Address City/[facility]/ZIP Co de Phone Number [facility] [address] * POC HCO3 (10/17/2025 9:25 PM EST) POC HCO3, Arterial 22 22 - 26 mmol/L 10/17/2025 9:51 PM EST [facility] Blood, Arterial 10/17/2025 9 :25 PM EST 10/17/2025 9:51 PM EST us Vani Winkler MD POINT OF CARE TEST ORDERABLE S Final Result [facility] [address] * (ABNORMAL) POC PO2 (10/17/2025 9:25 PM EST) POC pO2, Arterial 161(H) 80 - 100 mm Hg 10/17/2025 9:51 PM EST [facility] Blood, Arterial 10/17/2025 9 :25 PM EST 10/17/2025 9:51 PM EST Vani Winkler MD POINT OF CARE TEST ORDERABLE S Final Result [facility] [address] * POC PCO2 (10/17/2025 9:25 PM EST) POC pCO2, Arterial 38 35 - 45 mm Hg 10/17/2025 9:51 PM EST [facility] Blood, Arterial 10/17/2025 9 :25 PM EST 10/17/2025 9:51 PM EST Vani Winkler MD POINT OF CARE TEST ORDERABLE S Final Result [facility] [address] * POC pH (10/17/2025 9:25 PM EST) POC pH, Arterial 7.37 7.35 - 7.45 10/17/2025 9:51 PM EST [facility] Blood, Arterial 10/17/2025 9 :25 PM EST 10/17/2025 9:51 PM EST Vani Winkler MD POINT OF CARE TEST ORDERABLE S Final Result [facility] [address] * (ABNORMAL) POC INR (10/17/2025 9:24 PM EST) Prothrombin Time INR, POC 2.3(H) 0.8 - 1.4 10/18/2025 12:08 AM EST [facility] Comment: Test results may vary using [...] OF CARE TEST ORDERABLE S Final Result [facility] [address] * Transfuse Fresh Frozen Plasma (10/17/2025 9:17 [...] - 9.1 minutes 10/17/2025 10:13 PM EST [facility] Citrated Kaolin W/Heparinase Reaction Time (TEGECMOLIVER) 3.4(L) 4.3 - 8.3 minutes 10/17/2025 10:13 PM EST [facility] Citrated Kaolin Maximum Amplitude (TEGECMOLIVER) 45.4(L) 52.0 - 69.0 mm 10/17/2025 10:13 PM EST [facility] Citrated Functional Fibrinogen W/Heparinase Maximum Amplitude(TEGEC MOLIVER) 18.0 15.0 - 34.0 mm 10/17/2025 10:13 PM EST [facility] Citrated Rapid Teg W/Heparinase Maximum Amplitude (TEGECMOLIVER) 40.5(L) 53.0 - 69.0 mm 10/17/2025 10:13 PM EST [facility] Citrated Kaolin w/Heparinase Percent Lysis (TEGECMOLIVER) 0.0 0.0 - 3.2 % 10/17/2025 10:13 PM EST [facility] Whole Blood (Citrate) 10/17/2025 8:31 PM EST 10/17/2025 8:40 PM EST Oskar Torres MD LAB BLOOD ORDERABLES Final Re sult [facility] [address] * (ABNORMAL) Fibrinogen (10/17/2025 8:31 PM EST) [facility] Fibrinogen 157(L) 218 - 406 mg/dL 10/17/2025 9:00 PM EST [facility] Plasma 10/17/2025 8:31 PM EST 10/17/2025 8:40 PM EST Oskar Torres MD LAB BLOOD ORDERABLES Final Re sult [facility] [address] * POC Sample Type (10/17/2025 8:22 PM EST) Pathologist [facility] POC Sample Type Arterial 10/17/2025 8:24 PM EST [facility] Blood, Arterial 10/17/2025 8 :22 PM EST 10/17/2025 8:24 PM EST Vani Winkler MD POINT OF CARE TEST ORDERABLE S Final Result [facility] [address] * POC Anion Gap (10/17/2025 8:22 PM EST) Pathologist [facility] POC Anion Gap, Arterial 11 3 - 16 mmol/L 10/17/2025 8:24 PM EST [facility] Blood, Arterial 10/17/2025 8 :22 PM EST 10/17/2025 8:24 PM EST Vani Winkler MD POINT OF CARE TEST ORDERABLE S Final Result Performing Organization Address City/[facility]/ZIP Co de Phone Number [facility] [address] [facility] [place]. [address] * POC Chloride (10/17/2025 8:22 PM EST) Pathologist [facility] POC Chloride 108 98 - 110 mmol/L 10/17/2025 8:24 PM EST [facility] Blood, Arterial 10/17/2025 8 :22 PM EST 10/17/2025 8:24 PM EST Vani Winkler MD POINT OF CARE TEST ORDERABLE S Final Result [facility] [address] [facility]. [address] * (ABNORMAL) POC Hemoglobin (10/17/2025 8:22 PM EST) POC Hemoglobin 9.5(L) 14.0 - 18.0 g/dL 10/17/2025 8:24 PM EST [facility] Blood, Arterial 10/17/2025 8 :22 PM EST 10/17/2025 8:24 PM EST Vani Winkler MD POINT OF CARE TEST ORDERABLE S Final Result [facility] [address] [facility] [place]. [address] * (ABNORMAL) POC hematocrit (10/17/2025 8:22 PM EST) POC Hematocrit 28.0(L) 40 - 52 % 10/17/2025 8:24 PM EST [facility] Blood, Arterial 10/17/2025 8 :22 PM EST 10/17/2025 8:24 PM EST Vani Winkler MD POINT OF CARE TEST ORDERABLE S Final Result Performing Organization Address [facility] Co de Phone Number [facility] [address] [facility] [place]. [address] * POC Lactate (10/17/2025 8:22 PM EST) POC Lactate 1.62 0.50 - 2.20 mmol/L 10/17/2025 8:24 PM EST [facility] Blood, Arterial 10/17/2025 8 :22 PM EST 10/17/2025 8:24 PM EST Vani Winkler MD POINT OF CARE TEST ORDERABLE S Final Result Performing Organization Address City/[facility]/ZIP Co de Phone Number [facility] [address] [facility] [place]. [address] * (ABNORMAL) POC Glucose (10/17/2025 8:22 PM EST) POC Glucose, Arterial 218(H) 70 - 100 mg/dL 10/17/2025 8:24 PM EST [facility] Blood, Arterial 10/17/2025 8 :22 PM EST 10/17/2025 8:24 PM EST Vani Winkler MD POINT OF CARE TEST ORDERABLE S Final Result [facility] [address] * POC Ionized Calcium (10/17/2025 8:22 PM EST) POC Ionized Calcium 4.80 4.50 - 5.30 mg/dL 10/17/2025 8:24 PM EST [facility] Blood, Arterial 10/17/2025 8 :22 PM EST 10/17/2025 8:24 PM EST Vani Winkler MD POINT OF CARE TEST ORDERABLE S Final Result Performing Organization Address City/[facility]/ZIP Co de Phone Number [facility] [address] [facility]. [address] * POC Potassium (10/17/2025 8:22 PM EST) POC Potassium 3.8 3.5 - 5.3 mmol/L 10/17/2025 8:24 PM EST [facility] Blood, Arterial 10/17/2025 8 :22 PM EST 10/17/2025 8:24 PM EST Vani Winkler MD POINT OF CARE TEST ORDERABLE S Final Result Performing Organization Address [facility]/ZIP Co de Phone Number [facility] [address] [facility]. [address] * POC Sodium (10/17/2025 8:22 PM EST) POC Sodium 143 136 - 146 mmol/L 10/17/2025 8:24 PM EST [facility] Blood, Arterial 10/17/2025 8 :22 PM EST 10/17/2025 8:24 PM EST Vani Winkler MD POINT OF CARE TEST ORDERABLE S Final Result Performing Organization Address City/[facility]/ZIP Co de Phone Number [facility] [address] * POC TCO2 (10/17/2025 8:22 PM EST) POC TCO2, Arterial 25 23 - 27 mmol/L 10/17/2025 8:24 PM EST [facility] Blood, Arterial 10/17/2025 8 :22 PM EST 10/17/2025 8:24 PM EST Vani Winkler MD POINT OF CARE TEST ORDERABLE S Final Result [facility] [address] [facility] [place]. [address] * (ABNORMAL) POC O2 SAT (10/17/2025 8:22 PM EST) POC O2 Saturation, Arterial 99(H) 95 - 98 % 10/17/2025 8:24 PM EST [facility] Blood, Arterial 10/17/2025 8 :22 PM EST 10/17/2025 8:24 PM EST Vani Winkler MD POINT OF CARE TEST ORDERABLE S Final Result [facility] [address] [facility] [place]. [address] * POC Base Excess (10/17/2025 8:22 PM EST) POC Base Excess, Arterial -1 -2 - 3 mmol/L 10/17/2025 8:24 PM EST [facility] Blood, Arterial 10/17/2025 8 :22 PM EST 10/17/2025 8:24 PM EST Vani Winkler MD POINT OF CARE TEST ORDERABLE S Final Result [facility] [address] [facility] [place]. [address] * POC HCO3 (10/17/2025 8:22 PM EST) POC HCO3, Arterial 24 22 - 26 mmol/L 10/17/2025 8:24 PM EST [facility] Blood, Arterial 10/17/2025 8 :22 PM EST 10/17/2025 8:24 PM EST Vani Winkler MD POINT OF CARE TEST ORDERABLE S Final Result [facility] [address] * (ABNORMAL) POC PO2 (10/17/2025 8:22 PM EST) POC pO2, Arterial 131(H) 80 - 100 mm Hg 10/17/2025 8:24 PM EST [facility] Blood, Arterial 10/17/2025 8 :22 PM EST 10/17/2025 8:24 PM EST Vani Winkler MD POINT OF CARE TEST ORDERABLE S Final Result [facility] [address] * POC PCO2 (10/17/2025 8:22 PM EST) POC pCO2, Arterial 41 35 - 45 mm Hg 10/17/2025 8:24 PM EST [facility] Blood, Arterial 10/17/2025 8 :22 PM EST 10/17/2025 8:24 PM EST Vani Winkler MD POINT OF CARE TEST ORDERABLE S Final Result [facility] [address] * POC pH (10/17/2025 8:22 PM EST) POC pH, Arterial 7.37 7.35 - 7.45 10/17/2025 8:24 PM EST [facility] Blood, Arterial 10/17/2025 8 :22 PM EST 10/17/2025 8:24 PM EST us Vani Winkler MD POINT OF CARE TEST ORDERABLE S Final Result Performing Organization Address [facility] Co de Phone Number [facility] [address] [facility] [place]. [address] * (ABNORMAL) POC INR (10/17/2025 8:21 PM EST) [facility] Prothrombin Time INR, POC 2.9(H) 0.8 - 1.4 10/18/2025 12:08 AM EST [facility] Comment: Test results may vary [...] ORDERABLE S Final Result Performing Organization Address City/[facility] Co de Phone Number [facility] [address] [facility] [place]. [address] * Transfuse Fresh Frozen Plasma (10/17/2025 [...] Sample Type (10/17/2025 7:26 PM EST) Pathologist [facility] POC Sample Type Arterial 10/17/2025 7:30 PM EST [facility] Blood, Arterial 10/17/2025 7 :26 PM EST 10/17/2025 7:30 PM EST Vani Winkler MD POINT OF CARE TEST ORDERABLE S Final Result [facility] [address] [facility]. [address] * POC Anion Gap (10/17/2025 7:26 PM EST) [facility] POC Anion Gap, Arterial 11 3 - 16 mmol/L 10/17/2025 7:30 PM EST [facility] Blood, Arterial 10/17/2025 7 :26 PM EST 10/17/2025 7:30 PM EST Vani Winkler MD POINT OF CARE TEST ORDERABLE S Final Result [facility] [address] [facility]. [address] * POC Chloride (10/17/2025 7:26 PM EST) [facility] POC Chloride 109 98 - 110 mmol/L 10/17/2025 7:30 PM EST [facility] Blood, Arterial 10/17/2025 7 :26 PM EST 10/17/2025 7:30 PM EST Vani Winkler MD POINT OF CARE TEST ORDERABLE S Final Result [facility] [address] [facility]. [address] * (ABNORMAL) POC Hemoglobin (10/17/2025 7:26 PM EST) [facility] POC Hemoglobin 8.6(L) 14.0 - 18.0 g/dL 10/17/2025 7:30 PM EST [facility] Blood, Arterial 10/17/2025 7 :26 PM EST 10/17/2025 7:30 PM EST Vani Winkler MD POINT OF CARE TEST ORDERABLE S Final Result [facility] [address] [facility] [place]. [address] * (ABNORMAL) POC hematocrit (10/17/2025 7:26 PM EST) POC Hematocrit 25.0(L) 40 - 52 % 10/17/2025 7:30 PM EST [facility] Blood, Arterial 10/17/2025 7 :26 PM EST 10/17/2025 7:30 PM EST Vani Winkler MD POINT OF CARE TEST ORDERABLE S Final Result Performing Organization Address [facility] Co de Phone Number [facility] [address] [facility] [place]. [address] * POC Lactate (10/17/2025 7:26 PM EST) Pathologist [facility] POC Lactate 2.16 0.50 - 2.20 mmol/L 10/17/2025 7:30 PM EST [facility] Blood, Arterial 10/17/2025 7 :26 PM EST 10/17/2025 7:30 PM EST Vani Winkler MD POINT OF CARE TEST ORDERABLE S Final Result Performing Organization Address City/[facility] Co de Phone Number [facility] [address] [facility] [place]. [address] * (ABNORMAL) POC Glucose (10/17/2025 7:26 PM EST) POC Glucose, Arterial 207(H) 70 - 100 mg/dL 10/17/2025 7:30 PM EST [facility] Blood, Arterial 10/17/2025 7 :26 PM EST 10/17/2025 7:30 PM EST Vani Winkler MD POINT OF CARE TEST ORDERABLE S Final Result [facility] [address] [facility]. [address] * (ABNORMAL) POC Ionized Calcium (10/17/2025 7:26 PM EST) POC Ionized Calcium 5.40(H) 4.50 - 5.30 mg/dL 10/17/2025 7:30 PM EST [facility] Blood, Arterial 10/17/2025 7 :26 PM EST 10/17/2025 7:30 PM EST us Vani Winkler MD POINT OF CARE TEST ORDERABLE S Final Result Performing Organization Address [facility] Co de Phone Number [facility] [address] [facility] [place]. [address] * POC Potassium (10/17/2025 7:26 PM EST) POC Potassium 3.9 3.5 - 5.3 mmol/L 10/17/2025 7:30 PM EST [facility] Blood, Arterial 10/17/2025 7 :26 PM EST 10/17/2025 7:30 PM EST Vani Winkler MD POINT OF CARE TEST ORDERABLE S Final Result Performing Organization Address City/[facility]/ZIP Co de Phone Number [facility] [address] [facility]. [address] * POC Sodium (10/17/2025 7:26 PM EST) POC Sodium 143 136 - 146 mmol/L 10/17/2025 7:30 PM EST [facility] Blood, Arterial 10/17/2025 7 :26 PM EST 10/17/2025 7:30 PM EST Vani Winkler MD POINT OF CARE TEST ORDERABLE S Final Result [facility] [address] * POC TCO2 (10/17/2025 7:26 PM EST) POC TCO2, Arterial 24 23 - 27 mmol/L 10/17/2025 7:30 PM EST [facility] Blood, Arterial 10/17/2025 7 :26 PM EST 10/17/2025 7:30 PM EST Vani Winkler MD POINT OF CARE TEST ORDERABLE S Final Result Performing Organization Address City/[facility]/ZIP Co de Phone Number [facility] [address] * (ABNORMAL) POC O2 SAT (10/17/2025 7:26 PM EST) POC O2 Saturation, Arterial 99(H) 95 - 98 % 10/17/2025 7:30 PM EST [facility] Blood, Arterial 10/17/2025 7 :26 PM EST 10/17/2025 7:30 PM EST Vani Winkler MD POINT OF CARE TEST ORDERABLE S Final Result Performing Organization Address [facility]/ZIP Co de Phone Number [facility] [address] * POC Base Excess (10/17/2025 7:26 PM EST) POC Base Excess, Arterial -2 -2 - 3 mmol/L 10/17/2025 7:30 PM EST [facility] Blood, Arterial 10/17/2025 7 :26 PM EST 10/17/2025 7:30 PM EST Vani Winkler MD POINT OF CARE TEST ORDERABLE S Final Result [facility] [address] * POC HCO3 (10/17/2025 7:26 PM EST) POC HCO3, Arterial 23 22 - 26 mmol/L 10/17/2025 7:30 PM EST [facility] Blood, Arterial 10/17/2025 7 :26 PM EST 10/17/2025 7:30 PM EST Vani Winkler MD POINT OF CARE TEST ORDERABLE S Final Result [facility] [address] [place] [address]. [address] * (ABNORMAL) POC PO2 (10/17/2025 7:26 PM EST) POC pO2, Arterial 156(H) 80 - 100 mm Hg 10/17/2025 7:30 PM EST [facility] Blood, Arterial 10/17/2025 7 :26 PM EST 10/17/2025 7:30 PM EST Vani Winkler MD POINT OF CARE TEST ORDERABLE S Final Result Performing Organization Address City/[facility] Co de Phone Number [facility] [address] [place] [address]. [address] * POC PCO2 (10/17/2025 7:26 PM EST) POC pCO2, Arterial 40 35 - 45 mm Hg 10/17/2025 7:30 PM EST [facility] Blood, Arterial 10/17/2025 7 :26 PM EST 10/17/2025 7:30 PM EST Vani Winkler MD POINT OF CARE TEST ORDERABLE S Final Result Performing Organization Address City/[facility] Co de Phone Number [facility] [address] [place] [address]. [address] * POC pH (10/17/2025 7:26 PM EST) POC pH, Arterial 7.37 7.35 - 7.45 10/17/2025 7:30 PM EST [facility] Blood, Arterial 10/17/2025 7 :26 PM EST 10/17/2025 7:30 PM EST Result [facility] Vani Winkler MD POINT OF CARE TEST ORDERABLE S Final Result [facility] [address] [facility]. [address] * (ABNORMAL) POC INR (10/17/2025 7:25 PM EST) Prothrombin Time INR, POC 5.9(HH) 0.8 - 1.4 10/18/2025 12:07 AM EST [facility] Comment: Test results may vary using different testing platforms. Serial result monitoring should be performed using the same methodology. RECOMMENDED THERAPEUTIC RANGES USING INR : Stable oral anticoagulant therapy: 2.0 - 3.0 Mechanical prosthetic heart valve: 2.5 - 3.5 Recurrent acute myocardial infarction: 2.5 - 3.5 Blood 10/17/2025 7:25 PM EST 10/18/2025 12:07 AM EST Result [facility] Vani Winkler MD POINT OF CARE TEST ORDERABLE S Final Result [facility] [address] [facility] [place]. [address] * Transfuse Platelets (10/17/2025 7:03 PM EST) Result [facility] Slade Munoz MD NURSING TREATMENT ORDERABLES - B LOOD ADMIN Final Result * (ABNORMAL) TEG-Bypass/ECMO/Liver HN (Factor function, Platelet/Fibrin Clot Strength w/Clot Breakdown, Heparinase In All Channels) (10/17/2025 6:39 PM EST) Citrated Kaolin Reaction Time (TEGECMOLIVER) 7.1 4.6 - 9.1 minutes 10/17/2025 8:07 PM EST [facility] Citrated Kaolin W/Heparinase Reaction Time (TEGECMOLIVER) 2.5(L) 4.3 - 8.3 minutes 10/17/2025 8:07 PM EST [facility] Citrated Kaolin Maximum Amplitude (TEGECMOLIVER) 41.6(L) 52.0 - 69.0 mm 10/17/2025 8:07 PM EST [facility] Citrated Functional Fibrinogen W/Heparinase Maximum Amplitude(TEGEC MOLIVER) 20.9 15.0 - 34.0 mm 10/17/2025 8:07 PM EST [facility] Citrated Rapid Teg W/Heparinase Maximum Amplitude (TEGECMOLIVER) 30.9(L) 53.0 - 69.0 mm 10/17/2025 8:07 PM [facility] Citrated Kaolin w/Heparinase Percent Lysis (TEGECMOLIVER) 0.0 0.0 - 3.2 % 10/17/2025 8:07 PM [facility] Whole Blood (Citrate) 10/17/2025 6:39 PM EST 10/17/2025 6:45 PM EST us Shannan Salas MD LAB BLOOD ORDERABLES Final R esult [facility] [address] * (ABNORMAL) CBC (10/17/2025 6:39 PM EST) WBC 4.8 3.8 - 10.8 10E3/uL 10/17/2025 6:54 PM EST [facility] RBC 3.19(L) 4.20 - 5.80 10E6/uL 10/17/2025 6:54 PM EST [facility] Hemoglobin 10.3(L) 13.2 - 17.1 g/dL 10/17/2025 6:54 PM [facility] Hematocrit 30.2(L) 38.5 - 50.0 % 10/17/2025 6:54 PM EST [facility] MCV 94.8 80.0 - 100.0 fL 10/17/2025 6:54 PM [facility] MCH 32.3 27.0 - 33.0 pg 10/17/2025 6:54 PM [facility] MCHC 34.1 32.0 - 36.0 g/dL 10/17/2025 6:54 PM EST [facility] RDW 17.8(H) 11.0 - 15.0 % 10/17/2025 6:54 PM EST [facility] Platelets 47(L) 140 - 400 10E3/uL 10/17/2025 6:54 PM EST [facility] Comment:CNV MPV 7.7 7.5 - 11.5 fL 10/17/2025 6:54 PM EST [facility] Whole Blood 10/17/2025 6:39 PM EST 10/17/2025 6:45 PM EST Shannan Salas MD LAB BLOOD ORDERABLES Final R esult [facility] [address] * (ABNORMAL) Protime-INR (10/17/2025 6:39 PM EST) Protime 69.5(HH) 12.1 - 15.1 seconds 10/17/2025 7:30 PM EST [facility] Comment:The critical result was called to, and read back by, licensed caregiver ROSALIND HAWK RN, AT 1930 INR 7.5(HH) 0.9 - 1.1 10/17/2025 7:30 PM EST [facility] Comment: RECOMMENDED THERAPEUTIC RANGES USING [...] ORDERABLES Final R esult Performing Organization Address City/[facility]/ZIP Co de Phone Number [facility] [address] * (ABNORMAL) Fibrinogen (10/17/2025 6:39 PM EST) Fibrinogen 159(L) 218 - 406 mg/dL 10/17/2025 7:04 PM EST [facility] Plasma 10/17/2025 6:39 PM EST 10/17/2025 6:45 PM EST Shannan Salas MD LAB BLOOD ORDERABLES Final R esult [facility] [address] [facility]. [address] * Transfuse Cryoprecipitate (10/17/2025 6:31 PM EST) Slade Munoz MD NURSING TREATMENT ORDERABLES - B LOOD ADMIN Final Result * POC Sample Type (10/17/2025 6:23 PM EST) Pathologist [facility] POC Sample Type Arterial 10/17/2025 6:25 PM EST [facility] Blood, Arterial 10/17/2025 6 :23 PM EST 10/17/2025 6:25 PM EST Vani Winkler MD POINT OF CARE TEST ORDERABLE S Final Result Performing Organization Address [facility] Co de Phone Number [facility] [address] [facility] [place]. [address] * POC Anion Gap (10/17/2025 6:23 PM EST) Pathologist [facility] POC Anion Gap, Arterial 13 3 - 16 mmol/L 10/17/2025 6:25 PM EST [facility] Blood, Arterial 10/17/2025 6 :23 PM EST 10/17/2025 6:25 PM EST Vani Winkler MD POINT OF CARE TEST ORDERABLE S Final Result Performing Organization Address City/[facility]/ZIP Co de Phone Number [facility] [address] * POC Chloride (10/17/2025 6:23 PM EST) POC Chloride 110 98 - 110 mmol/L 10/17/2025 6:25 PM EST [facility] Blood, Arterial 10/17/2025 6 :23 PM EST 10/17/2025 6:25 PM EST Vani Winkler MD POINT OF CARE TEST ORDERABLE S Final Result [facility] [address] [place] [address]. [address] * (ABNORMAL) POC Hemoglobin (10/17/2025 6:23 PM EST) POC Hemoglobin 9.8(L) 14.0 - 18.0 g/dL 10/17/2025 6:25 PM EST [facility] Blood, Arterial 10/17/2025 6 :23 PM EST 10/17/2025 6:25 PM EST Vani Winlker MD POINT OF CARE TEST ORDERABLE S Final Result Performing Organization Address City/[facility]/ZIP Co de Phone Number [facility] [address] [place] [address]. [address] * (ABNORMAL) POC hematocrit (10/17/2025 6:23 PM EST) POC Hematocrit 29.0(L) 40 - 52 % 10/17/2025 6:25 PM EST [facility] Blood, Arterial 10/17/2025 6 :23 PM EST 10/17/2025 6:25 PM EST Vani Winkler MD POINT OF CARE TEST ORDERABLE S Final Result [facility] [address] [place] [address]. [address] * (ABNORMAL) POC Lactate (10/17/2025 6:23 PM EST) POC Lactate 3.26(H) 0.50 - 2.20 mmol/L 10/17/2025 6:25 PM EST [facility] Blood, Arterial 10/17/2025 6 :23 PM EST 10/17/2025 6:25 PM EST Vani Winkler MD POINT OF CARE TEST ORDERABLE S Final Result [facility] [address] [facility] [place]. [address] * (ABNORMAL) POC Glucose (10/17/2025 6:23 PM EST) POC Glucose, Arterial 170(H) 70 - 100 mg/dL 10/17/2025 6:25 PM EST [facility] Blood, Arterial 10/17/2025 6 :23 PM EST 10/17/2025 6:25 PM EST Vani Winkler MD POINT OF CARE TEST ORDERABLE S Final Result Performing Organization Address [facility] Co de Phone Number [facility] [address] [facility] [place]. [address] * (ABNORMAL) POC Ionized Calcium (10/17/2025 6:23 PM EST) POC Ionized Calcium 6.00(H) 4.50 - 5.30 mg/dL 10/17/2025 6:25 PM EST [facility] Blood, Arterial 10/17/2025 6 :23 PM EST 10/17/2025 6:25 PM EST Vani Winkler MD POINT OF CARE TEST ORDERABLE S Final Result [facility] [address] [facility] [place]. [address] * POC Potassium (10/17/2025 6:23 PM EST) POC Potassium 3.8 3.5 - 5.3 mmol/L 10/17/2025 6:25 PM EST [facility] Blood, Arterial 10/17/2025 6 :23 PM EST 10/17/2025 6:25 PM EST Vani Winkler MD POINT OF CARE TEST ORDERABLE S Final Result [facility] [address] * POC Sodium (10/17/2025 6:23 PM EST) POC Sodium 142 136 - 146 mmol/L 10/17/2025 6:25 PM EST [facility] Blood, Arterial 10/17/2025 6 :23 PM EST 10/17/2025 6:25 PM EST Vani Winkler MD POINT OF CARE TEST ORDERABLE S Final Result Performing Organization Address City/[facility]/ZIP Co de Phone Number [facility] [address] [facility] [place]. [address] * (ABNORMAL) POC TCO2 (10/17/2025 6:23 PM EST) POC TCO2, Arterial 20(L) 23 - 27 mmol/L 10/17/2025 6:25 PM EST [facility] Blood, Arterial 10/17/2025 6 :23 PM EST 10/17/2025 6:25 PM EST Vani Winkler MD POINT OF CARE TEST ORDERABLE S Final Result [facility] [address] [facility] [place]. [address] * POC O2 SAT (10/17/2025 6:23 PM EST) POC O2 Saturation, Arterial 95 95 - 98 % 10/17/2025 6:25 PM EST [facility] Blood, Arterial 10/17/2025 6 :23 PM EST 10/17/2025 6:25 PM EST Vani Winkler MD POINT OF CARE TEST ORDERABLE S Final Result Performing Organization Address City/[facility]/ZIP Co de Phone Number [facility] [address] [place] [address]. [address] * (ABNORMAL) POC Base Excess (10/17/2025 6:23 PM EST) POC Base Excess, Arterial -6(L) -2 - 3 mmol/L 10/17/2025 6:25 PM EST [facility] Blood, Arterial 10/17/2025 6 :23 PM EST 10/17/2025 6:25 PM EST us Vani Winkler MD POINT OF CARE TEST ORDERABLE S Final Result Performing Organization Address [facility] Co de Phone Number [facility] [address] [place] [address]. [address] * (ABNORMAL) POC HCO3 (10/17/2025 6:23 PM EST) POC HCO3, Arterial 19(L) 22 - 26 mmol/L 10/17/2025 6:25 PM EST [facility] Blood, Arterial 10/17/2025 6 :23 PM EST 10/17/2025 6:25 PM EST Vani Winkler MD POINT OF CARE TEST ORDERABLE S Final Result Performing Organization Address City/[facility] Co de Phone Number [facility] [address] [place] [address]. [address] * POC PO2 (10/17/2025 6:23 PM EST) POC pO2, Arterial 80 80 - 100 mm Hg 10/17/2025 6:25 PM EST [facility] Blood, Arterial 10/17/2025 6 :23 PM EST 10/17/2025 6:25 PM EST Vani Winkler MD POINT OF CARE TEST ORDERABLE S Final Result [facility] [address] * POC PCO2 (10/17/2025 6:23 PM EST) POC pCO2, Arterial 36 35 - 45 mm Hg 10/17/2025 6:25 PM EST [facility] Blood, Arterial 10/17/2025 6 :23 PM EST 10/17/2025 6:25 PM EST Vani Winkler MD POINT OF CARE TEST ORDERABLE S Final Result [facility] [address] * (ABNORMAL) POC pH (10/17/2025 6:23 PM EST) POC pH, Arterial 7.33(L) 7.35 - 7.45 10/17/2025 6:25 PM EST [facility] Blood, Arterial 10/17/2025 6 :23 PM EST 10/17/2025 6:25 PM EST Vani Winkler MD POINT OF CARE TEST ORDERABLE S Final Result [facility] [address] * (ABNORMAL) POC INR (10/17/2025 6:21 [...] OF CARE TEST ORDERABLE S Final Result [facility] [address] * Transfuse Cryoprecipitate (10/17/2025 6:18 PM EST) Slade Munoz MD NURSING TREATMENT ORDERABLES - B LOOD ADMIN Final Result * POC Sample Type (10/17/2025 5:42 PM EST) POC Sample Type Arterial 10/17/2025 6:21 PM EST [facility] Blood, Arterial 10/17/2025 5 :42 PM EST 10/17/2025 6:21 PM EST Vani Winkler MD POINT OF CARE TEST ORDERABLE S Final Result Performing Organization Address City/[facility]/ZIP Co de Phone Number [facility] [address] * POC Anion Gap (10/17/2025 5:42 PM EST) Pathologist [facility] POC Anion Gap, Arterial 10 3 - 16 mmol/L 10/17/2025 6:21 PM EST [facility] Blood, Arterial 10/17/2025 5 :42 PM EST 10/17/2025 6:21 PM EST Vani Winkler MD POINT OF CARE TEST ORDERABLE S Final Result [facility] [address] * (ABNORMAL) POC Chloride (10/17/2025 5:42 PM EST) POC Chloride 111(H) 98 - 110 mmol/L 10/17/2025 6:21 PM EST [facility] Blood, Arterial 10/17/2025 5 :42 PM EST 10/17/2025 6:21 PM EST Vani Winkler MD POINT OF CARE TEST ORDERABLE S Final Result Performing Organization Address City/[facility] Co de Phone Number [facility] [address] * (ABNORMAL) POC Hemoglobin (10/17/2025 5:42 PM EST) POC Hemoglobin 7.9(L) 14.0 - 18.0 g/dL 10/17/2025 6:21 PM EST [facility] Blood, Arterial 10/17/2025 5 :42 PM EST 10/17/2025 6:21 PM EST Vani Winkler MD POINT OF CARE TEST ORDERABLE S Final Result Performing Organization Address [facility] Co de Phone Number [facility] [address] [place] [address]. [address] * (ABNORMAL) POC hematocrit (10/17/2025 5:42 PM EST) POC Hematocrit 23.0(L) 40 - 52 % 10/17/2025 6:21 PM EST [facility] Blood, Arterial 10/17/2025 5 :42 PM EST 10/17/2025 6:21 PM EST Vani Winkler MD POINT OF CARE TEST ORDERABLE S Final Result Performing Organization Address City/[facility] Co de Phone Number [facility] [address] [facility]. [address] * (ABNORMAL) POC Lactate (10/17/2025 5:42 PM EST) POC Lactate 2.53(H) 0.50 - 2.20 mmol/L 10/17/2025 6:21 PM EST [facility] Blood, Arterial 10/17/2025 5 :42 PM EST 10/17/2025 6:21 PM EST Vani Winkler MD POINT OF CARE TEST ORDERABLE S Final Result [facility] [address] [facility]. [address] * POC Glucose (10/17/2025 5:42 PM EST) POC Glucose, Arterial 77 70 - 100 mg/dL 10/17/2025 6:21 PM EST [facility] Blood, Arterial 10/17/2025 5 :42 PM EST 10/17/2025 6:21 PM EST us Vani Winkler MD POINT OF CARE TEST ORDERABLE S Final Result Performing Organization Address [facility] Co de Phone Number [facility] [address] [facility] [place]. [address] * (ABNORMAL) POC Ionized Calcium (10/17/2025 5:42 PM EST) POC Ionized Calcium 5.90(H) 4.50 - 5.30 mg/dL 10/17/2025 6:21 PM EST [facility] Blood, Arterial 10/17/2025 5 :42 PM EST 10/17/2025 6:21 PM EST us Vani Winkler MD POINT OF CARE TEST ORDERABLE S Final Result Performing Organization Address City/[facility]/ZIP Co de Phone Number [facility] [address] [facility]. [address] * POC Potassium (10/17/2025 5:42 PM EST) POC Potassium 3.7 3.5 - 5.3 mmol/L 10/17/2025 6:21 PM EST [facility] Blood, Arterial 10/17/2025 5 :42 PM EST 10/17/2025 6:21 PM EST us Vani Winkler MD POINT OF CARE TEST ORDERABLE S Final Result [facility] [address] * POC Sodium (10/17/2025 5:42 PM EST) POC Sodium 141 136 - 146 mmol/L 10/17/2025 6:21 PM EST [facility] Blood, Arterial 10/17/2025 5 :42 PM EST 10/17/2025 6:21 PM EST Vani Winkler MD POINT OF CARE TEST ORDERABLE S Final Result [facility] [address] * (ABNORMAL) POC TCO2 (10/17/2025 5:42 PM EST) POC TCO2, Arterial 21(L) 23 - 27 mmol/L 10/17/2025 6:21 PM EST [facility] Blood, Arterial 10/17/2025 5 :42 PM EST 10/17/2025 6:21 PM EST Vani Winkler MD POINT OF CARE TEST ORDERABLE S Final Result [facility] [address] * (ABNORMAL) POC O2 SAT (10/17/2025 5:42 PM EST) POC O2 Saturation, Arterial 99(H) 95 - 98 % 10/17/2025 6:21 PM EST [facility] Blood, Arterial 10/17/2025 5 :42 PM EST 10/17/2025 6:21 PM EST Vani Winkler MD POINT OF CARE TEST ORDERABLE S Final Result [facility] [address] * (ABNORMAL) POC Base Excess (10/17/2025 5:42 PM EST) POC Base Excess, Arterial -4(L) -2 - 3 mmol/L 10/17/2025 6:21 PM EST [facility] Blood, Arterial 10/17/2025 5 :42 PM EST 10/17/2025 6:21 PM EST Vani Winkler MD POINT OF CARE TEST ORDERABLE S Final Result [facility] [address] [facility] [place]. [address] * (ABNORMAL) POC HCO3 (10/17/2025 5:42 PM EST) POC HCO3, Arterial 20(L) 22 - 26 mmol/L 10/17/2025 6:21 PM EST [facility] Blood, Arterial 10/17/2025 5 :42 PM EST 10/17/2025 6:21 PM EST Vani Winkler MD POINT OF CARE TEST ORDERABLE S Final Result Performing Organization Address City/[facility]/ZIP Co de Phone Number [facility] [address] [facility] [place]. [address] * (ABNORMAL) POC PO2 (10/17/2025 5:42 PM EST) POC pO2, Arterial 159(H) 80 - 100 mm Hg 10/17/2025 6:21 PM EST [facility] Blood, Arterial 10/17/2025 5 :42 PM EST 10/17/2025 6:21 PM EST Vani Winkler MD POINT OF CARE TEST ORDERABLE S Final Result Performing Organization Address City/[facility]/ZIP Co de Phone Number [facility] [address] [facility] [place]. [address] * (ABNORMAL) POC PCO2 (10/17/2025 5:42 PM EST) POC pCO2, Arterial 33(L) 35 - 45 mm Hg 10/17/2025 6:21 PM EST [facility] Blood, Arterial 10/17/2025 5 :42 PM EST 10/17/2025 6:21 PM EST Vani Winkler MD POINT OF CARE TEST ORDERABLE S Final Result [facility] [address] [facility] [place]. [address] * POC pH (10/17/2025 5:42 PM EST) POC pH, Arterial 7.40 7.35 - 7.45 10/17/2025 6:21 PM EST [facility] Blood, Arterial 10/17/2025 5 :42 PM EST 10/17/2025 6:21 PM EST Vani Winkler MD POINT OF CARE TEST ORDERABLE S Final Result Performing Organization Address [facility] Co de Phone Number [facility] [address] * (ABNORMAL) POC INR (10/17/2025 5:37 PM EST) Prothrombin Time INR, POC 3.6(H) 0.8 - 1.4 10/18/2025 12:07 AM EST [facility] Comment: Test results may vary [...] ORDERABLE S Final Result Performing Organization Address City/[facility]/ZIP Co de Phone Number [facility] [address] [facility] [place]. [address] * Transfuse RBC (10/17/2025 5:34 PM [...] [facility] - 10/17/2025 12:00 AM EST CASE: [id number] PATIENT: DAVID SERRANO Clinical History: transplant liver Pre-Operative Diagnosis: end stage liver disease Post-Operative Diagnosis: same Specimen(s) Submitted: A. [place] liver and gallbladder; B. Right lobe post perfusion liver bx; C. Left lobe post perfusion liver bx CPT Code(s): 93545 X 2; 75330 X 1; 09100 X 7 Additional Information: FINAL DIAGNOSIS: Liver and gall bladder, tribal, total hepatectomy with cholecystectomy: Liver: -Cirrhosis, mild [...] with the patient's name David Serrano and tribal liver and gallbladder is a 782 gram, [...] no discrete masses or lesions are identified. Garden Worker sections are submitted in cassettes [id number] as follows: A1: Garden Worker gallbladder. A2: Hilar margins, en face. A3-A5: Garden Worker right lobe. A6-A8: Garden Worker left lobe with liver written on the side of the cassette in A8. (LAISHA Miranda/vc) B. Received in formalin, labeled with the patient's name David Serrano and right lobe post perfusion liver biopsy is a 1.6 cm in length x 0.1 cm in diameter red-brown tissue core, which is entirely submitted between blue biopsy sponges in cassette [id number] B1. (LAISHA Miranda/vc) C. Received in formalin, labeled with the patient's name David Serrano and left lobe post perfusion liver biopsy is a 1.3 cm in length x 0.1 cm in diameter red-brown fragmented tissue core, which is entirely submitted between blue biopsy sponges in cassette [id number] C1. (LAISHA Miranda/vc) Microscopic Description: Sixteen HE [...] Pathologist signing this report is located at [facility], [address] [place] [address], [place], [place], [facility], , CLIA ID: [id number] us Leticia Lomeli MD PATHOLOGY/CYTOLOGY ORDERABLES Final Result [facility] * Transfuse RBC (10/17/2025 5:19 PM EST) us Slade Munoz MD NURSING TREATMENT ORDERABLES - B LOOD ADMIN Final Result * POC Sample Type (10/17/2025 5:00 PM EST) POC Sample Type Arterial 10/17/2025 5:03 PM EST [facility] Blood, Arterial 10/17/2025 5 :00 PM EST 10/17/2025 5:03 PM EST Vani Winkler MD POINT OF CARE TEST ORDERABLE S Final Result Performing Organization Address [facility]/ZIP Co de Phone Number [facility] [address] [place] [address]. [address] * POC Anion Gap (10/17/2025 5:00 PM EST) POC Anion Gap, Arterial 11 3 - 16 mmol/L 10/17/2025 5:03 PM EST [facility] Blood, Arterial 10/17/2025 5 :00 PM EST 10/17/2025 5:03 PM EST Vani Winkler MD POINT OF CARE TEST ORDERABLE S Final Result Performing Organization Address City/[facility]/ZIP Co de Phone Number [facility] [address] [place] [address]. [address] * POC Chloride (10/17/2025 5:00 PM EST) POC Chloride 109 98 - 110 mmol/L 10/17/2025 5:03 PM EST [facility] Blood, Arterial 10/17/2025 5 :00 PM EST 10/17/2025 5:03 PM EST Vani Winkler MD POINT OF CARE TEST ORDERABLE S Final Result [facility] [address] * (ABNORMAL) POC Hemoglobin (10/17/2025 5:00 PM EST) POC Hemoglobin 7.9(L) 14.0 - 18.0 g/dL 10/17/2025 5:03 PM EST [facility] Blood, Arterial 10/17/2025 5 :00 PM EST 10/17/2025 5:03 PM EST Vani Winkler MD POINT OF CARE TEST ORDERABLE S Final Result Performing Organization Address City/[facility]/ZIP Co de Phone Number [facility] [address] [facility] [place]. [address] * (ABNORMAL) POC hematocrit (10/17/2025 5:00 PM EST) POC Hematocrit 23.0(L) 40 - 52 % 10/17/2025 5:03 PM EST [facility] Blood, Arterial 10/17/2025 5 :00 PM EST 10/17/2025 5:03 PM EST Vani Winkler MD POINT OF CARE TEST ORDERABLE S Final Result [facility] [address] [facility] [place]. [address] * (ABNORMAL) POC Lactate (10/17/2025 5:00 PM EST) POC Lactate 2.68(H) 0.50 - 2.20 mmol/L 10/17/2025 5:03 PM EST [facility] Blood, Arterial 10/17/2025 5 :00 PM EST 10/17/2025 5:03 PM EST Vani Winkler MD POINT OF CARE TEST ORDERABLE S Final Result Performing Organization Address City/[facility]/ZIP Co de Phone Number [facility] [address] [facility]. [address] * POC Glucose (10/17/2025 5:00 PM EST) POC Glucose, Arterial 96 70 - 100 mg/dL 10/17/2025 5:03 PM EST [facility] Blood, Arterial 10/17/2025 5 :00 PM EST 10/17/2025 5:03 PM EST Vani Winkler MD POINT OF CARE TEST ORDERABLE S Final Result Performing Organization Address [facility] Co de Phone Number [facility] [address] [facility] [place]. [address] * POC Ionized Calcium (10/17/2025 5:00 PM EST) POC Ionized Calcium 4.60 4.50 - 5.30 mg/dL 10/17/2025 5:03 PM EST [facility] Blood, Arterial 10/17/2025 5 :00 PM EST 10/17/2025 5:03 PM EST Vani Winkler MD POINT OF CARE TEST ORDERABLE S Final Result Performing Organization Address City/[facility]/ZIP Co de Phone Number [facility] [address] * POC Potassium (10/17/2025 5:00 PM EST) POC Potassium 3.7 3.5 - 5.3 mmol/L 10/17/2025 5:03 PM EST [facility] Blood, Arterial 10/17/2025 5 :00 PM EST 10/17/2025 5:03 PM EST Vani Winkler MD POINT OF CARE TEST ORDERABLE S Final Result [facility] [address] * POC Sodium (10/17/2025 5:00 PM EST) POC Sodium 143 136 - 146 mmol/L 10/17/2025 5:03 PM EST [facility] Blood, Arterial 10/17/2025 5 :00 PM EST 10/17/2025 5:03 PM EST Vani Winkler MD POINT OF CARE TEST ORDERABLE S Final Result Performing Organization Address City/[facility]/ZIP Co de Phone Number [facility] [address] [facility]. [address] * POC TCO2 (10/17/2025 5:00 PM EST) POC TCO2, Arterial 24 23 - 27 mmol/L 10/17/2025 5:03 PM EST [facility] Blood, Arterial 10/17/2025 5 :00 PM EST 10/17/2025 5:03 PM EST Vani Winkler MD POINT OF CARE TEST ORDERABLE S Final Result Performing Organization Address City/[facility]/ZIP Co de Phone Number [facility] [address] [facility]. [address] * (ABNORMAL) POC O2 SAT (10/17/2025 5:00 PM EST) POC O2 Saturation, Arterial 100(H) 95 - 98 % 10/17/2025 5:03 PM EST [facility] Blood, Arterial 10/17/2025 5 :00 PM EST 10/17/2025 5:03 PM EST Vani Winkler MD POINT OF CARE TEST ORDERABLE S Final Result [facility] [address] [facility]. [address] * POC Base Excess (10/17/2025 5:00 PM EST) POC Base Excess, Arterial -2 -2 - 3 mmol/L 10/17/2025 5:03 PM EST [facility] Blood, Arterial 10/17/2025 5 :00 PM EST 10/17/2025 5:03 PM EST Vani Winkler MD POINT OF CARE TEST ORDERABLE S Final Result [facility] [address] * POC HCO3 (10/17/2025 5:00 PM EST) POC HCO3, Arterial 23 22 - 26 mmol/L 10/17/2025 5:03 PM EST [facility] Blood, Arterial 10/17/2025 5 :00 PM EST 10/17/2025 5:03 PM EST Vani Winkler MD POINT OF CARE TEST ORDERABLE S Final Result Performing Organization Address City/[facility]/ZIP Co de Phone Number [facility] [address] [facility] [place]. [address] * (ABNORMAL) POC PO2 (10/17/2025 5:00 PM EST) POC pO2, Arterial 200(H) 80 - 100 mm Hg 10/17/2025 5:03 PM EST [facility] Blood, Arterial 10/17/2025 5 :00 PM EST 10/17/2025 5:03 PM EST Vani Winkler MD POINT OF CARE TEST ORDERABLE S Final Result [facility] [address] [facility] [place]. [address] * POC PCO2 (10/17/2025 5:00 PM EST) POC pCO2, Arterial 38 35 - 45 mm Hg 10/17/2025 5:03 PM EST [facility] Blood, Arterial 10/17/2025 5 :00 PM EST 10/17/2025 5:03 PM EST Vani Winkler MD POINT OF CARE TEST ORDERABLE S Final Result Performing Organization Address [facility] Co de Phone Number [facility] [address] * POC pH (10/17/2025 5:00 PM EST) POC pH, Arterial 7.39 7.35 - 7.45 10/17/2025 5:03 PM EST [facility] Blood, Arterial 10/17/2025 5 :00 PM EST 10/17/2025 5:03 PM EST Result [facility] Vani Winkler MD POINT OF CARE TEST ORDERABLE S Final Result Performing Organization Address [facility] de Phone Number [facility] [address] * (ABNORMAL) POC INR (10/17/2025 4:59 PM EST) Prothrombin Time INR, POC 1.7(H) 0.8 - 1.4 10/18/2025 12:07 AM EST [facility] Comment: Test results may vary using different testing platforms. Serial result monitoring should be performed using the same methodology. RECOMMENDED THERAPEUTIC RANGES USING INR : Stable oral anticoagulant therapy: 2.0 - 3.0 Mechanical prosthetic heart valve: 2.5 - 3.5 Recurrent acute myocardial infarction: 2.5 - 3.5 Blood 10/17/2025 4:59 PM EST 10/18/2025 12:07 AM EST Result [facility] Vani Winkler MD POINT OF CARE TEST ORDERABLE S Final Result Performing Organization Address [facility] Co de Phone Number [facility] [address] * (ABNORMAL) TEG-Bypass/ECMO/Liver HN (Factor function, Platelet/Fibrin Clot Strength w/Clot Breakdown, Heparinase In All Channels) (10/17/2025 4:56 PM EST) Citrated Kaolin Reaction Time (TEGECMOLIVER) 4.7 4.6 - 9.1 minutes 10/17/2025 6:20 PM EST [facility] Citrated Kaolin W/Heparinase Reaction Time (TEGECMOLIVER) 4.7 4.3 - 8.3 minutes 10/17/2025 6:20 PM EST [facility] Citrated Kaolin Maximum Amplitude (TEGECMOLIVER) 42.4(L) 52.0 - 69.0 mm 10/17/2025 6:20 PM EST [facility] Citrated Functional Fibrinogen W/Heparinase Maximum Amplitude(TEGEC MOLIVER) 6.6(L) 15.0 - 34.0 mm 10/17/2025 6:20 PM EST [facility] Citrated Rapid Teg W/Heparinase Maximum Amplitude (TEGECMOLIVER) 39.8(L) 53.0 - 69.0 mm 10/17/2025 6:20 PM EST [facility] Citrated Kaolin w/Heparinase Percent Lysis (TEGECMOLIVER) 0.0 0.0 - 3.2 % 10/17/2025 6:20 PM EST [facility] Whole Blood (Citrate) 10/17/2025 4:56 PM EST 10/17/2025 5:06 PM EST us Slade Munoz MD LAB BLOOD ORDERABLES Final Resul t [facility] [address] * (ABNORMAL) Protime-INR (10/17/2025 4:56 PM EST) Protime 26.4(H) 12.1 - 15.1 seconds 10/17/2025 5:31 PM EST [facility] INR 2.3(H) 0.9 - 1.1 10/17/2025 5:31 PM EST [facility] Comment: RECOMMENDED THERAPEUTIC RANGES USING INR : Stable oral anticoagulant therapy: 2.0 - 3.0 Mechanical prosthetic heart valve: 2.5 - 3.5 Recurrent acute myocardial infarction: 2.5 - 3.5 Plasma 10/17/2025 4:56 PM EST 10/17/2025 5:06 PM EST Slade Munoz MD LAB BLOOD ORDERABLES Final Resul t Performing Organization Address City/[facility]/ZIP Co de Phone Number [facility] [address] [facility] [place]. [address] * (ABNORMAL) Fibrinogen (10/17/2025 4:56 PM EST) Fibrinogen 137(L) 218 - 406 mg/dL 10/17/2025 5:36 PM EST [facility] Plasma 10/17/2025 4:56 PM EST 10/17/2025 5:06 PM EST Slade Munoz MD LAB BLOOD ORDERABLES Final Resul t Performing Organization Address [facility] Co de Phone Number [facility] [address] * (ABNORMAL) CBC (10/17/2025 4:56 PM EST) WBC 3.9 3.8 - 10.8 10E3/uL 10/17/2025 8:25 PM EST [facility] RBC 2.67(L) 4.20 - 5.80 10E6/uL 10/17/2025 8:25 PM EST [facility] Hemoglobin 9.2(L) 13.2 - 17.1 g/dL 10/17/2025 8:25 PM EST [facility] Hematocrit 26.1(L) 38.5 - 50.0 % 10/17/2025 8:25 PM EST [facility] MCV 98.0 80.0 - 100.0 fL 10/17/2025 8:25 PM EST [facility] MCH 34.5(H) 27.0 - 33.0 pg 10/17/2025 8:25 PM EST [facility] MCHC 35.3 32.0 - 36.0 g/dL 10/17/2025 8:25 PM EST [facility] RDW 17.9(H) 11.0 - 15.0 % 10/17/2025 8:25 PM EST [facility] Platelets 64(L) 140 - 400 10E3/uL 10/17/2025 8:25 PM EST [facility] MPV 8.2 7.5 - 11.5 fL 10/17/2025 8:25 PM EST [facility] Whole Blood 10/17/2025 4:56 PM EST 10/17/2025 5:19 PM EST Result [facility] Slade Munoz MD LAB BLOOD ORDERABLES Final Resul t Performing Organization Address City/[facility]/ZIP Co de Phone Number [facility] [address] * (ABNORMAL) APTT, No Anticoagulant (10/17/2025 4:56 PM EST) aPTT 55.7(H) 25.5 - 35.0 seconds 10/17/2025 5:32 PM EST [facility] Plasma 10/17/2025 4:56 PM EST 10/17/2025 5:06 PM EST Result [facility] Slade Munoz MD LAB BLOOD ORDERABLES Final Resul t Performing Organization Address City/[facility] Co de Phone Number [facility] [address] * Transfuse Cryoprecipitate (10/17/2025 4:18 PM [...] LOOD ADMIN Final Result Performing Organization Address [facility]/ZIP Co de Phone Number EXTERNAL * Transfuse Platelets (10/17/2025 4:06 PM EST) Slade Munoz MD NURSING TREATMENT ORDERABLES - B LOOD ADMIN Final Result * POC Sample Type (10/17/2025 3:59 PM EST) POC Sample Type Arterial 10/17/2025 4:01 PM EST [facility] Blood, Arterial 10/17/2025 3 :59 PM EST 10/17/2025 4:01 PM EST Vani Winkler MD POINT OF CARE TEST ORDERABLE S Final Result Performing Organization Address [facility] de Phone Number [facility] [address] [facility] [place]. [address] * POC Anion Gap (10/17/2025 3:59 PM EST) POC Anion Gap, Arterial 10 3 - 16 mmol/L 10/17/2025 4:01 PM EST [facility] Blood, Arterial 10/17/2025 3 :59 PM EST 10/17/2025 4:01 PM EST Vani Winkler MD POINT OF CARE TEST ORDERABLE S Final Result Performing Organization Address [facility] de Phone Number [facility] [address] [facility] [place]. [address] * (ABNORMAL) POC Chloride (10/17/2025 3:59 PM EST) POC Chloride 111(H) 98 - 110 mmol/L 10/17/2025 4:01 PM EST [facility] Blood, Arterial 10/17/2025 3 :59 PM EST 10/17/2025 4:01 PM EST Vani Winlker MD POINT OF CARE TEST ORDERABLE S Final Result Performing Organization Address City/[facility] Co de Phone Number [facility] [address] * (ABNORMAL) POC Hemoglobin (10/17/2025 3:59 PM EST) POC Hemoglobin 9.7(L) 14.0 - 18.0 g/dL 10/17/2025 4:01 PM EST [facility] Blood, Arterial 10/17/2025 3 :59 PM EST 10/17/2025 4:01 PM EST Vani Winkler MD POINT OF CARE TEST ORDERABLE S Final Result Performing Organization Address City/[facility]/ZIP Co de Phone Number [facility] [address] * (ABNORMAL) POC hematocrit (10/17/2025 3:59 PM EST) POC Hematocrit 29.0(L) 40 - 52 % 10/17/2025 4:01 PM EST [facility] Blood, Arterial 10/17/2025 3:59 PM EST 10/17/2025 4:01 PM EST Vani Winkler MD POINT OF CARE TEST ORDERABLE S Final Result Performing Organization Address [facility]/ZIP Co de Phone Number [facility] [address] * POC Lactate (10/17/2025 3:59 PM EST) POC Lactate 1.77 0.50 - 2.20 mmol/L 10/17/2025 4:01 PM EST [facility] Blood, Arterial 10/17/2025 3 :59 PM EST 10/17/2025 4:01 PM EST Vani Winkler MD POINT OF CARE TEST ORDERABLE S Final Result Performing Organization Address City/[facility]/ZIP Co de Phone Number [facility] [address] * POC Glucose (10/17/2025 3:59 PM EST) POC Glucose, Arterial 81 70 - 100 mg/dL 10/17/2025 4:01 PM EST [facility] Blood, Arterial 10/17/2025 3 :59 PM EST 10/17/2025 4:01 PM EST Vani Winkler MD POINT OF CARE TEST ORDERABLE S Final Result [facility] [address] [place] [address]. [address] * POC Ionized Calcium (10/17/2025 3:59 PM EST) Pathologist [facility] POC Ionized Calcium 4.90 4.50 - 5.30 mg/dL 10/17/2025 4:01 PM EST [facility] Blood, Arterial 10/17/2025 3 :59 PM EST 10/17/2025 4:01 PM EST Vani Winkler MD POINT OF CARE TEST ORDERABLE S Final Result Performing Organization Address City/[facility]/ZIP Co de Phone Number [facility] [address] [place] [address]. [address] * POC Potassium (10/17/2025 3:59 PM EST) Pathologist [facility] POC Potassium 3.7 3.5 - 5.3 mmol/L 10/17/2025 4:01 PM EST [facility] Blood, Arterial 10/17/2025 3 :59 PM EST 10/17/2025 4:01 PM EST Vani Winkler MD POINT OF CARE TEST ORDERABLE S Final Result Performing Organization Address City/[facility]/ZIP Co de Phone Number [facility] [address] [facility] [place]. [address] * POC Sodium (10/17/2025 3:59 PM EST) POC Sodium 145 136 - 146 mmol/L 10/17/2025 4:01 PM EST [facility] Blood, Arterial 10/17/2025 3 :59 PM EST 10/17/2025 4:01 PM EST Vani Winkler MD POINT OF CARE TEST ORDERABLE S Final Result [facility] [address] [facility] [place]. [address] * POC TCO2 (10/17/2025 3:59 PM EST) POC TCO2, Arterial 26 23 - 27 mmol/L 10/17/2025 4:01 PM EST [facility] Blood, Arterial 10/17/2025 3 :59 PM EST 10/17/2025 4:01 PM EST Vani Winkler MD POINT OF CARE TEST ORDERABLE S Final Result Performing Organization Address City/[facility]/ZIP Co de Phone Number [facility] [address] [facility]. [address] * (ABNORMAL) POC O2 SAT (10/17/2025 3:59 PM EST) POC O2 Saturation, Arterial 100(H) 95 - 98 % 10/17/2025 4:01 PM EST [facility] Blood, Arterial 10/17/2025 3 :59 PM EST 10/17/2025 4:01 PM EST Vani Winkler MD POINT OF CARE TEST ORDERABLE S Final Result [facility] [address] [facility]. [address] * POC Base Excess (10/17/2025 3:59 PM EST) POC Base Excess, Arterial -1 -2 - 3 mmol/L 10/17/2025 4:01 PM EST [facility] Blood, Arterial 10/17/2025 3 :59 PM EST 10/17/2025 4:01 PM EST us Vani Winkler MD POINT OF CARE TEST ORDERABLE S Final Result [facility] [address] [facility] [place]. [address] * POC HCO3 (10/17/2025 3:59 PM EST) POC HCO3, Arterial 24 22 - 26 mmol/L 10/17/2025 4:01 PM EST [facility] Blood, Arterial 10/17/2025 3 :59 PM EST 10/17/2025 4:01 PM EST us Vani Winkler MD POINT OF CARE TEST ORDERABLE S Final Result Performing Organization Address [facility] Co de Phone Number [facility] [address] [facility] [place]. [address] * (ABNORMAL) POC PO2 (10/17/2025 3:59 PM EST) POC pO2, Arterial 213(H) 80 - 100 mm Hg 10/17/2025 4:01 PM EST [facility] Blood, Arterial 10/17/2025 3 :59 PM EST 10/17/2025 4:01 PM EST Vani Winkler MD POINT OF CARE TEST ORDERABLE S Final Result Performing Organization Address City/[facility] Co de Phone Number [facility] [address] [place] [address]. [address] * POC PCO2 (10/17/2025 3:59 PM EST) POC pCO2, Arterial 45 35 - 45 mm Hg 10/17/2025 4:01 PM EST [facility] Blood, Arterial 10/17/2025 3 :59 PM EST 10/17/2025 4:01 PM EST Vani Winkler MD POINT OF CARE TEST ORDERABLE S Final Result [facility] [address] * (ABNORMAL) POC pH (10/17/2025 3:59 PM EST) POC pH, Arterial 7.34(L) 7.35 - 7.45 10/17/2025 4:01 PM EST [facility] Blood, Arterial 10/17/2025 3 :59 PM EST 10/17/2025 4:01 PM EST Vani Winkler MD POINT OF CARE TEST ORDERABLE S Final Result Performing Organization Address [facility] Co de Phone Number [facility] [address] * (ABNORMAL) POC INR (10/17/2025 3:58 PM EST) Prothrombin Time INR, POC 2.8(H) 0.8 - 1.4 10/18/2025 12:07 AM EST [facility] Comment: Test results may vary [...] ORDERABLE S Final Result Performing Organization Address City/[facility]/ZIP Co de Phone Number [facility] [address] * Transfuse RBC (10/17/2025 3:23 PM EST) Result [facility] Slade Munoz MD NURSING TREATMENT ORDERABLES - B LOOD ADMIN Final Result * Transfuse RBC (10/17/2025 3:15 PM EST) Slade Munoz MD NURSING TREATMENT ORDERABLES - B LOOD ADMIN Final Result * (ABNORMAL) TEG-Bypass/ECMO/Liver HN (Factor function, Platelet/Fibrin Clot Strength w/Clot Breakdown, Heparinase In All Channels) (10/17/2025 2:55 PM EST) Pathologist [facility] Citrated Kaolin Reaction Time (TEGECMOLIVER) 5.1 4.6 - 9.1 minutes 10/17/2025 4:23 PM EST [facility] Citrated Kaolin W/Heparinase Reaction Time (TEGECMOLIVER) 5.2 4.3 - 8.3 minutes 10/17/2025 4:23 PM EST [facility] Citrated Kaolin Maximum Amplitude (TEGECMOLIVER) <40.0(L) 52.0 - 69.0 mm 10/17/2025 4:23 PM EST [facility] Citrated Functional Fibrinogen W/Heparinase Maximum Amplitude(TEGEC MOLIVER) <6.0(L) 15.0 - 34.0 mm 10/17/2025 4:23 PM EST [facility] Citrated Rapid Teg W/Heparinase Maximum Amplitude (TEGECMOLIVER) 32.8(L) 53.0 - 69.0 mm 10/17/2025 4:23 PM EST [facility] Citrated Kaolin w/Heparinase Percent Lysis (TEGECMOLIVER) 0.0 0.0 - 3.2 % 10/17/2025 4:23 PM EST [facility] Whole Blood (Citrate) 10/17/2025 2:55 PM EST 10/17/2025 3:05 PM EST Slade Munoz MD LAB BLOOD ORDERABLES Final Resul t [facility] [address] [place] [address], [facility] * (ABNORMAL) CBC (10/17/2025 2:55 PM EST) Pathologist [facility] WBC 4.4 3.8 - 10.8 10E3/uL 10/17/2025 3:20 PM EST [facility] RBC 2.90(L) 4.20 - 5.80 10E6/uL 10/17/2025 3:20 PM EST [facility] Hemoglobin 10.0(L) 13.2 - 17.1 g/dL 10/17/2025 3:20 PM EST [facility] Hematocrit 28.6(L) 38.5 - 50.0 % 10/17/2025 3:20 PM EST [facility] MCV 98.7 80.0 - 100.0 fL 10/17/2025 3:20 PM EST [facility] MCH 34.4(H) 27.0 - 33.0 pg 10/17/2025 3:20 PM EST [facility] MCHC 34.8 32.0 - 36.0 g/dL 10/17/2025 3:20 PM EST [facility] RDW 17.0(H) 11.0 - 15.0 % 10/17/2025 3:20 PM EST [facility] Platelets 53(L) 140 - 400 10E3/uL 10/17/2025 3:20 PM EST [facility] MPV 7.6 7.5 - 11.5 fL 10/17/2025 3:20 PM EST [facility] Whole Blood 10/17/2025 2:55 PM EST 10/17/2025 3:06 PM EST Slade Munoz MD LAB BLOOD ORDERABLES Final Resul t [facility] [address] * (ABNORMAL) Fibrinogen (10/17/2025 2:55 PM EST) Fibrinogen 85(LL) 218 - 406 mg/dL 10/17/2025 3:46 PM EST [facility] Comment:The critical result was called to, and read back by, licensed caregiver CAMI GALEANO MD, AT 1545 Plasma 10/17/2025 2:55 PM EST 10/17/2025 3:06 PM EST Slade Munoz MD LAB BLOOD ORDERABLES Final Resul t [facility] [address] * (ABNORMAL) Protime-INR (10/17/2025 2:55 PM EST) Protime 26.5(H) 12.1 - 15.1 seconds 10/17/2025 3:30 PM EST [facility] INR 2.3(H) 0.9 - 1.1 10/17/2025 3:30 PM EST [facility] Comment: RECOMMENDED THERAPEUTIC RANGES USING INR : Stable oral anticoagulant therapy: 2.0 - 3.0 Mechanical prosthetic heart valve: 2.5 - 3.5 Recurrent acute myocardial infarction: 2.5 - 3.5 Plasma 10/17/2025 2:55 PM EST 10/17/2025 3:06 PM EST Slade Munoz MD LAB BLOOD ORDERABLES Final Resul t [facility] [address] [facility] [place]. [address] * POC Sample Type (10/17/2025 2:54 PM EST) Pathologist [facility] POC Sample Type Arterial 10/17/2025 3:55 PM EST [facility] Blood, Arterial 10/17/2025 2 :54 PM EST 10/17/2025 3:55 PM EST Vani Winkler MD POINT OF CARE TEST ORDERABLE S Final Result [facility] [address] [facility] [place]. [address] * POC Anion Gap (10/17/2025 2:54 PM EST) Pathologist [facility] POC Anion Gap, Arterial 10 3 - 16 mmol/L 10/17/2025 3:55 PM EST [facility] Blood, Arterial 10/17/2025 2 :54 PM EST 10/17/2025 3:55 PM EST Vani Winkler MD POINT OF CARE TEST ORDERABLE S Final Result [facility] [address] * (ABNORMAL) POC Chloride (10/17/2025 2:54 PM EST) POC Chloride 112(H) 98 - 110 mmol/L 10/17/2025 3:55 PM EST [facility] Blood, Arterial 10/17/2025 2 :54 PM EST 10/17/2025 3:55 PM EST Vani Winkler MD POINT OF CARE TEST ORDERABLE S Final Result Performing Organization Address [facility]/ZIP Co de Phone Number [facility] [address] * (ABNORMAL) POC Hemoglobin (10/17/2025 2:54 PM EST) POC Hemoglobin 8.7(L) 14.0 - 18.0 g/dL 10/17/2025 3:55 PM EST [facility] Blood, Arterial 10/17/2025 2 :54 PM EST 10/17/2025 3:55 PM EST Vani Winkler MD POINT OF CARE TEST ORDERABLE S Final Result Performing Organization Address [facility]/ZIP Co de Phone Number [facility] [address] * (ABNORMAL) POC hematocrit (10/17/2025 2:54 PM EST) POC Hematocrit 26.0(L) 40 - 52 % 10/17/2025 3:55 PM EST [facility] Blood, Arterial 10/17/2025 2 :54 PM EST 10/17/2025 3:55 PM EST Vani Winkler MD POINT OF CARE TEST ORDERABLE S Final Result [facility] [address] * POC Lactate (10/17/2025 2:54 PM EST) POC Lactate 1.23 0.50 - 2.20 mmol/L 10/17/2025 3:55 PM EST [facility] Blood, Arterial 10/17/2025 2 :54 PM EST 10/17/2025 3:55 PM EST Vani Winkler MD POINT OF CARE TEST ORDERABLE S Final Result [facility] [address] [facility] [place]. [address] * POC Glucose (10/17/2025 2:54 PM EST) POC Glucose, Arterial 74 70 - 100 mg/dL 10/17/2025 3:55 PM EST [facility] Blood, Arterial 10/17/2025 2 :54 PM EST 10/17/2025 3:55 PM EST Vani Winkler MD POINT OF CARE TEST ORDERABLE S Final Result [facility] [address] [facility] [place]. [address] * POC Ionized Calcium (10/17/2025 2:54 PM EST) Pathologist [facility] POC Ionized Calcium 4.70 4.50 - 5.30 mg/dL 10/17/2025 3:55 PM EST [facility] Blood, Arterial 10/17/2025 2 :54 PM EST 10/17/2025 3:55 PM EST Vani Winkler MD POINT OF CARE TEST ORDERABLE S Final Result [facility] [address] [facility] [place]. [address] * (ABNORMAL) POC Potassium (10/17/2025 2:54 PM EST) POC Potassium 3.2(L) 3.5 - 5.3 mmol/L 10/17/2025 3:55 PM EST [facility] Blood, Arterial 10/17/2025 2 :54 PM EST 10/17/2025 3:55 PM EST Vani Winkler MD POINT OF CARE TEST ORDERABLE S Final Result [facility] [address] * POC Sodium (10/17/2025 2:54 PM EST) POC Sodium 145 136 - 146 mmol/L 10/17/2025 3:55 PM EST [facility] Blood, Arterial 10/17/2025 2 :54 PM EST 10/17/2025 3:55 PM EST Vani Winkler MD POINT OF CARE TEST ORDERABLE S Final Result Performing Organization Address City/[facility]/ZIP Co de Phone Number [facility] [address] * POC TCO2 (10/17/2025 2:54 PM EST) POC TCO2, Arterial 24 23 - 27 mmol/L 10/17/2025 3:55 PM EST [facility] Blood, Arterial 10/17/2025 2 :54 PM EST 10/17/2025 3:55 PM EST Vani Winkler MD POINT OF CARE TEST ORDERABLE S Final Result [facility] [address] [facility] [place]. [address] * (ABNORMAL) POC O2 SAT (10/17/2025 2:54 PM EST) POC O2 Saturation, Arterial 100(H) 95 - 98 % 10/17/2025 3:55 PM EST [facility] Blood, Arterial 10/17/2025 2 :54 PM EST 10/17/2025 3:55 PM EST Vani Winkler MD POINT OF CARE TEST ORDERABLE S Final Result [facility] [address] [facility] [place]. [address] * POC Base Excess (10/17/2025 2:54 PM EST) POC Base Excess, Arterial -2 -2 - 3 mmol/L 10/17/2025 3:55 PM EST [facility] Blood, Arterial 10/17/2025 2 :54 PM EST 10/17/2025 3:55 PM EST Vani Winkler MD POINT OF CARE TEST ORDERABLE S Final Result Performing Organization Address City/[facility]/ZIP Co de Phone Number [facility] [address] [facility] [place]. [address] * POC HCO3 (10/17/2025 2:54 PM EST) POC HCO3, Arterial 23 22 - 26 mmol/L 10/17/2025 3:55 PM EST [facility] Blood, Arterial 10/17/2025 2 :54 PM EST 10/17/2025 3:55 PM EST Vani Winkler MD POINT OF CARE TEST ORDERABLE S Final Result [facility] [address] [place] [address]. [address] * (ABNORMAL) POC PO2 (10/17/2025 2:54 PM EST) POC pO2, Arterial 179(H) 80 - 100 mm Hg 10/17/2025 3:55 PM EST [facility] Blood, Arterial 10/17/2025 2 :54 PM EST 10/17/2025 3:55 PM EST Vani Winkler MD POINT OF CARE TEST ORDERABLE S Final Result [facility] [address] * POC PCO2 (10/17/2025 2:54 PM EST) POC pCO2, Arterial 40 35 - 45 mm Hg 10/17/2025 3:55 PM EST [facility] Blood, Arterial 10/17/2025 2 :54 PM EST 10/17/2025 3:55 PM EST Vani Winkler MD POINT OF CARE TEST ORDERABLE S Final Result Performing Organization Address [facility] Co de Phone Number [facility] [address] * POC pH (10/17/2025 2:54 PM EST) POC pH, Arterial 7.37 7.35 - 7.45 10/17/2025 3:55 PM EST [facility] Blood, Arterial 10/17/2025 2 :54 PM EST 10/17/2025 3:55 PM EST Vani Winkler MD POINT OF CARE TEST ORDERABLE S Final Result Performing Organization Address City/[facility]/ZIP Co de Phone Number [facility] [address] [facility]. [address] * (ABNORMAL) POC INR (10/17/2025 2:53 PM EST) Prothrombin Time INR, POC 2.4(H) 0.8 - 1.4 10/18/2025 12:07 AM EST [facility] Comment: Test results may vary using [...] OF CARE TEST ORDERABLE S Final Result [facility] [address] * Routine Culture plus Stain (Surgical Swab) (10/17/2025 2:50 PM EST) Gram Stain Result Rare Polymorphonuclear Leukocytes Seen [facility] Gram Stain Result No Organisms Seen; [facility] Culture Result No Growth After 3 Days [facility] Surgical Swab PERITONEAL FLUID / Unknown 10/17/2025 2:50 PM EST Comment:1. Ascites-anaerobic , aerobic, and fungal Narrative [facility] - 10/20/2025 11:09 AM EST 1. Ascites-anaerobic, aerobic, and fungal 1. Ascites-anaerobic, aerobic, and fungal Vani Winkler MD MICROBIOLOGY - GENERAL ORDER MARYA Final Result Performing Organization Address City/[facility]/ZIP Co de Phone Number [facility] [address] [facility] [place]. [address] * Anaerobic culture (Surgical Swab) (10/17/2025 2:50 PM EST) Culture Result No Anaerobes Isolated in 5 Days [facility] Surgical Swab PERITONEAL FLUID / Unknown 10/17/2025 2:50 PM EST Comment:1. Ascites-anaerobic , aerobic, and fungal Narrative [facility] - 10/22/2025 11:32 AM EST 1. Ascites-anaerobic, aerobic, and fungal 1. Ascites-anaerobic, aerobic, and fungal Vani Winkler MD MICROBIOLOGY - GENERAL ORDER MARYA Final Result [facility] [address] * (ABNORMAL) TEG-Standard Global Hemostasis (Rapid TEG with Heparin Effect, Contains a Baseline TEG) (10/17/2025 10:19 AM EST) Citrated Kaolin Reaction Time (TEGHEPARINASE) 7.2 4.6 - 9.1 minutes 10/17/2025 11:27 AM EST [facility] Citrated Rapid Teg Maximum Amplitude (TEGHEPARINASE) <40.0(L) 52.0 - 70.0 mm 10/17/2025 11:27 AM EST [facility] Citrated Functional Fibrinogen Maximum Amplitude (TEGHEPARINASE) 5.8(L) 15.0 - 32.0 mm 10/17/2025 11:27 AM EST [facility] Citrated Kaolin W/Heparinase Reaction Time (TEGHEPARINASE) 6.7 4.3 - 8.3 minutes 10/17/2025 11:27 AM [facility] Citrated Kaolin K-Time (TEGHEPARINASE) 2.9(H) 0.8 - 2.1 minutes 10/17/2025 11:27 AM EST [facility] Citrated Kaolin Angle (TEGHEPARINASE) 64.4 63.0 - 78.0 degrees 10/17/2025 11:27 AM [facility] Citrated Kaolin Maximum Amplitude (TEGHEPARINASE) <40.0(L) 52.0 - 69.0 mm 10/17/2025 11:27 AM [facility] Citrated Functional Fibrinogen- Fibrinogen Level (TEGHEPARINASE) 156.5(L) 278.0 - 581.0 mg/dL 10/17/2025 11:27 AM [facility] Whole Blood (Citrate) 10/17/2025 10:19 AM EST 10/17/2025 10:46 AM EST us [facility] BLOOD ORDERABLES Final Re sult [facility] [address] [place], [place] [address] * Hepatitis C RNA, Quant Reflex to Genotyp (10/17/2025 10:19 AM EST) International Units Not Detected IU/mL 10/19/2025 2:12 PM EST [facility] Comment:Test methodology for HCV RNA quantification is an FDA-approved nucleic acid amplification assay. The Lower Limit of Quantitation (LLOQ) is 15 IU/mL. The linear range of the assay is 15-100,000,000 IU/mL. The Limit of Detection (LoD) is 12.0 IU/mL for EDTA plasma. The reference range is Not Detected. IU log10 See Note log 10 IU/mL 10/19/2025 2:12 PM EST [facility] Comment:HCV RNA not detected . Plasma 10/17/2025 10:1 9 AM EST 10/17/2025 11:09 AM EST [facility] BLOOD ORDERABLES Final Re sult Performing Organization Address [facility] Co de Phone Number [facility] [address] [place] [address]. [address] * (ABNORMAL) APTT, No Anticoagulant (10/17/2025 10:19 AM EST) aPTT 41.2(H) 25.5 - 35.0 seconds 10/17/2025 11:02 AM EST [facility] Plasma 10/17/2025 10:1 9 AM EST 10/17/2025 10:46 AM EST [facility] BLOOD ORDERABLES Final Re sult Performing Organization Address [facility] Co de Phone Number [facility] [address] [place] [address]. [address] * (ABNORMAL) Fibrinogen (10/17/2025 10:19 AM EST) Fibrinogen 116(L) 218 - 406 mg/dL 10/17/2025 11:08 AM EST [facility] Plasma 10/17/2025 10:1 9 AM EST 10/17/2025 10:46 AM EST [facility] BLOOD ORDERABLES Final Re sult Performing Organization Address [facility] Co de Phone Number [facility] [address] [facility]. [address] * Magnesium, STAT (10/17/2025 10:18 AM EST) Magnesium 1.7 1.5 - 2.5 mg/dL 10/17/2025 11:46 AM EST [facility] Plasma 10/17/2025 10:1 8 AM EST 10/17/2025 10:46 AM EST [facility] LAB BLOOD ORDERABLES Final Re sult [facility] [address] [facility] [place]. [address] * (ABNORMAL) Jose-Mims Virus VCA IgG Ab (10/17/2025 10:18 AM EST) EBV VCA IgG Positive( A) Negative 10/17/2025 12:18 PM EST [facility] Comment:Presence of detectab le VCA IgG antibodies. A positive result indicates current or past exposure to Jose-Mims virus. EBV IGG NUM >750.00(H ) 0.00 - 17.99 U/mL 10/17/2025 12:18 PM EST [facility] Serum 10/17/2025 10:1 8 AM EST 10/17/2025 10:46 AM EST [facility] LAB BLOOD ORDERABLES Final Re sult [facility] [address] [facility]. [address] * CMV IgG Antibody (10/17/2025 10:18 AM EST) CMV IgG Negative Negative 10/17/2025 12:16 PM EST [facility] CMV IGG NUM <0.20 0.00 - 0.59 U/mL 10/17/2025 12:16 PM EST [facility] Serum 10/17/2025 10:1 8 AM EST 10/17/2025 10:46 AM EST Kassi Storm PA LAB BLOOD ORDERABLES Final Re sult [facility] [address] [address] * HIV 1+2 Antibody/Antigen with Reflex (10/17/2025 10:18 AM EST) HIV 1+2 AB/AGN Nonreactive Nonreactive 10/17/2025 12:16 PM EST [facility] Serum 10/17/2025 10:1 8 AM EST 10/17/2025 10:46 AM EST Narrative [facility] - 10/17/2025 12:16 PM EST \HIVRNR [facility] LAB BLOOD ORDERABLES Final Re sult Performing Organization Address [facility] Co de Phone Number [facility] [address] [facility] [place]. [address] * Hepatitis B Core Antibody (10/17/2025 10:18 AM EST) Hep B Core Total Ab Nonreactive Nonreactive 10/17/2025 12:17 PM EST [facility] Comment:Health Department no tified in accordance with reportable infectious disease guidelines. Serum 10/17/2025 10:1 8 AM EST 10/17/2025 10:46 AM EST Narrative [facility] - 10/17/2025 12:17 PM EST A nonreactive final interpretation indicates that anti-HBc antibodies were not detected in the sample; it is possible that the individual is not infected with HBV. Kassi Onel PA LAB BLOOD ORDERABLES Final Re sult Performing Organization Address City/[facility]/ZIP Co de Phone Number [facility] [address] [facility]. [address] * Hepatitis C Antibody (10/17/2025 10:18 AM EST) HCV Ab Nonreactive Nonreactive 10/17/2025 12:25 PM EST [facility] Comment:Health Department no tified in accordance with reportable infectious disease guidelines. Serum 10/17/2025 10:1 8 AM EST 10/17/2025 10:46 AM EST [facility] - 10/17/2025 12:25 PM EST Antibodies to HCV not detected; does not exclude the possibility of exposure to HCV. Kassi INTERIANO LAB BLOOD ORDERABLES Final Re sult Performing Organization Address [facility] Co de Phone Number [facility] [address] [place] [address]. [address] * (ABNORMAL) Hepatitis B Surface Antibody, Quantitati (10/17/2025 10:18 AM EST) Hep B S Ab Reactive( A) Nonreactive 10/17/2025 12:29 PM EST [facility] HBSAB NUMBER 260.00(H) 0.00 - 7.99 mIU/mL 10/17/2025 12:29 PM EST [facility] Serum 10/17/2025 10:1 8 AM EST 10/17/2025 10:46 AM EST [facility] - 10/17/2025 12:29 PM EST Individual is considered immune to HBV infection. Kassi INTERIANO LAB BLOOD ORDERABLES Final Re sult Performing Organization Address [facility] Co de Phone Number [facility] [address] [place] [address]. [address] * Hepatitis B surface antigen (10/17/2025 10:18 AM EST) Hep B Surface Ag Nonreactive Nonreactive 10/17/2025 12:21 PM EST [facility] Comment:Health Department no tified in accordance with reportable infectious disease guidelines. Serum 10/17/2025 10:1 8 AM EST 10/17/2025 10:46 AM EST [facility] - 10/17/2025 12:21 PM EST Specimen is considered negative for HBsAg. Kassi INTERIANO LAB BLOOD ORDERABLES Final Re sult [facility] [address] * Hepatitis A Antibody Total (10/17/2025 10:18 AM EST) Anti-HAV Total (IgG + IgM) Reactive 10/17/2025 12:22 PM EST [facility] Serum 10/17/2025 10:1 8 AM EST 10/17/2025 10:46 AM EST Narrative [facility] - 10/17/2025 12:22 PM EST HAV antibodies detected [facility] LAB BLOOD ORDERABLES Final Re sult Performing Organization Address [facility] Co de Phone Number [facility] [address] [facility] [place]. [address] * Vitamin D 25 Hydroxy (10/17/2025 10:18 AM EST) Vit D, 25-Hydroxy 39.3 30.0 - 100.0 ng/mL 10/17/2025 12:15 PM EST [facility] Comment: Vitamin D deficiency has been defined by the [place] of [employer] (IOM) and an Endocrine Society [...] AM EST 10/17/2025 10:[address] [facility] LAB BLOOD ORDERABLES Final Re sult [facility] [address] [place]. [address] * Antibody Screen (10/17/2025 10:18 AM EST) Pathologist [facility] Antibody Screen Negative 10/17/2025 11:09 AM EST [facility] Blood 10/17/2025 10:1 8 AM EST 10/17/2025 10:26 AM EST Narrative [facility] - 10/17/2025 11:17 AM EST Testing performed by [facility] Transfusion Service Kassi INTERIANO BLOOD BANK TEST ORDERABLES Fi nal Result [facility] [address]. [address] * ABO/Rh (10/17/2025 10:18 AM EST) Pathologist [facility] ABO Grouping A 10/17/2025 10:53 AM EST [facility] Rh Type Positive 10/17/2025 10:53 AM EST [facility] Blood 10/17/2025 10:1 8 AM EST 10/17/2025 10:26 AM EST Kassi INTERIANO BLOOD BANK TEST ORDERABLES Fi nal Result [facility] [address] [facility]. [address] * (ABNORMAL) Hepatic Function Panel (10/17/2025 10:18 AM EST) Pathologist [facility] Total Bilirubin 4.9(H) 0.0 - 1.5 mg/dL 10/17/2025 11:47 AM EST [facility] Bilirubin, Direct 1.35(H) 0.00 - 0.40 mg/dL 10/17/2025 11:47 AM EST [facility] AST 39 13 - 39 U/L 10/17/2025 11:47 AM EST [facility] ALT 27 7 - 52 U/L 10/17/2025 11:47 AM EST [facility] Alkaline Phosphatase 143(H) 36 - 125 U/L 10/17/2025 11:47 AM EST [facility] Total Protein 6.5 6.4 - 8.9 g/dL 10/17/2025 11:47 AM EST [facility] Albumin 2.3(L) 3.5 - 5.7 g/dL 10/17/2025 11:47 AM EST [facility] Bilirubin, Indirect 3.55(H) 0.00 - 1.10 mg/dL 10/17/2025 11:47 AM EST [facility] Plasma 10/17/2025 10:1 8 AM EST 10/17/2025 10:46 AM EST us Kassi INTERIANO LAB BLOOD ORDERABLES Final Re sult [facility] [address] [facility]. [place] [address], [facility] * (ABNORMAL) Renal Function Panel w/EGFR (10/17/2025 10:18 AM EST) Sodium 141 133 - 146 mmol/L 10/17/2025 11:47 AM EST [facility] Potassium 3.3(L) 3.5 - 5.3 mmol/L 10/17/2025 11:47 AM EST [facility] Chloride 110 98 - 110 mmol/L 10/17/2025 11:47 AM EST [facility] CO2 29 21 - 33 mmol/L 10/17/2025 11:47 AM EST [facility] Comment:High lactate dehydro genase concentrations in patient samples may cause falsely increased bicarbonate results. If markedly elevated LDH is observed or suspected, please assess results in conjunction with patient`s clinical presentation. In cases of discrepant results, consider evaluating CO2 in with a blood gas order. Anion Gap 2(L) 3 - 16 mmol/L 10/17/2025 11:47 AM EST [facility] BUN 13 7 - 25 mg/dL 10/17/2025 11:47 AM EST [facility] Creatinine 0.81 0.60 - 1.30 mg/dL 10/17/2025 11:47 AM EST [facility] Glucose 81 70 - 100 mg/dL 10/17/2025 11:47 AM EST [facility] Calcium 8.1(L) 8.6 - 10.3 mg/dL 10/17/2025 11:47 AM EST [facility] Phosphorus 2.8 2.1 - 4.7 mg/dL 10/17/2025 11:47 AM EST [facility] Albumin 2.3(L) 3.5 - 5.7 g/dL 10/17/2025 11:47 AM EST [facility] Osmolality, Calculated 291 278 - 305 mOsm/kg 10/17/2025 11:47 AM EST [facility] EGFR >90 10/17/2025 11:47 AM EST [facility] Comment: As of 2022, the [...] INTERIANO LAB BLOOD ORDERABLES Final Re sult [facility] [address] [place] [address], [facility] * Hemoglobin A1C (10/17/2025 10:18 AM EST) Hemoglobin A1C 4.0 4.0 - 5.6 % 10/17/2025 1:42 PM EST [facility] Comment: Hemoglobin A1c Interpretation Guidelines: [...] INTERIANO LAB BLOOD ORDERABLES Final Re sult [facility] [address] [place] [address], [facility] * (ABNORMAL) Venous Blood Gas, Line/Syringe, STAT (10/17/2025 10:18 AM EST) PH-Line Draw 7.37 7.32 - 7.42 10/17/2025 10:27 AM EST [facility] PCO2-Line Draw 46 41 - 51 mm Hg 10/17/2025 10:27 AM EST [facility] PO2-Line Draw 29 25 - 40 mm Hg 10/17/2025 10:27 AM EST [facility] HCO3-Line Draw 24 24 - 28 mmol/L 10/17/2025 10:27 AM [facility] CO2 Content-Line Draw 28 25 - 29 mmol/L 10/17/2025 10:27 AM [facility] Base Excess-Line Draw 0.9 -2.0 - 3.0 mmol/L 10/17/2025 10:27 AM [facility] %HBO2-Line Draw 38.5(L) 40.0 - 70.0 % 10/17/2025 10:27 AM [facility] Carboxyhgb-Rebecca e Draw 1.4 0.0 - 2.0 % 10/17/2025 10:27 AM [facility] Comment: CARBOXYHEMOGLOBIN (CO) REFERENCE RANGES: Non-Smokers: <2 % Smokers: <8 % TOXIC: >20 % Methemoglobin- Line Draw 0.6 0.0 - 1.5 % 10/17/2025 10:27 AM EST [facility] Blood, Venous 10/17/2025 10: 18 AM EST 10/17/2025 10:24 AM EST Kassi INTERIANO LAB BLOOD ORDERABLES Final Re sult Performing Organization Address City/[facility] Co de Phone Number [facility] [address] * (ABNORMAL) Protime-INR (10/17/2025 10:18 AM EST) Protime 21.7(H) 12.1 - 15.1 seconds 10/17/2025 11:01 AM EST [facility] INR 1.8(H) 0.9 - 1.1 10/17/2025 11:01 AM EST [facility] Comment: RECOMMENDED THERAPEUTIC RANGES USING INR : Stable oral anticoagulant therapy: 2.0 - 3.0 Mechanical prosthetic heart valve: 2.5 - 3.5 Recurrent acute myocardial infarction: 2.5 - 3.5 Plasma 10/17/2025 10:1 8 AM EST 10/17/2025 10:46 AM EST Kassi INTERIANO LAB BLOOD ORDERABLES Final Re sult Performing Organization Address City/[facility] Co de Phone Number [facility] [address] [facility] [place]. [address] * (ABNORMAL) Differential (10/17/2025 10:18 AM EST) Neutrophils Relative 45.0 40.0 - 80.0 % 10/17/2025 10:59 AM EST [facility] Lymphocytes Relative 34.7 15.0 - 45.0 % 10/17/2025 10:59 AM EST [facility] Monocytes Relative 12.9(H) 0.0 - 12.0 % 10/17/2025 10:59 AM EST [facility] Eosinophils Relative 6.4 0.0 - 8.0 % 10/17/2025 10:59 AM EST [facility] Basophils Relative 1.0 0.0 - 1.0 % 10/17/2025 10:59 AM EST [facility] nRBC 0 0 - 0 /100 WBC 10/17/2025 10:59 AM EST [facility] Neutrophils Absolute 1,845 1,520 - 8,640 /uL 10/17/2025 10:59 AM EST [facility] Lymphocytes Absolute 1,423 570 - 4,860 /uL 10/17/2025 10:59 AM EST [facility] Monocytes Absolute 529 0 - 1,296 /uL 10/17/2025 10:59 AM EST [facility] Eosinophils Absolute 262 0 - 864 /uL 10/17/2025 10:59 AM EST [facility] Basophils Absolute 41 0 - 108 /uL 10/17/2025 10:59 AM [facility] Whole Blood 10/17/2025 10:1 8 AM EST 10/17/2025 10:46 AM EST Kassi INTERIANO LAB BLOOD ORDERABLES Final Re sult [facility] [address] * (ABNORMAL) CBC (10/17/2025 10:18 AM EST) WBC 4.1 3.8 - 10.8 10E3/uL 10/17/2025 10:59 AM EST [facility] RBC 3.32(L) 4.20 - 5.80 10E6/uL 10/17/2025 10:59 AM EST [facility] Hemoglobin 11.2(L) 13.2 - 17.1 g/dL 10/17/2025 10:59 AM [facility] Hematocrit 32.9(L) 38.5 - 50.0 % 10/17/2025 10:59 AM [facility] MCV 99.1 80.0 - 100.0 fL 10/17/2025 10:59 AM [facility] MCH 33.8(H) 27.0 - 33.0 pg 10/17/2025 10:59 AM [facility] MCHC 34.1 32.0 - 36.0 g/dL 10/17/2025 10:59 AM EST [facility] RDW 17.3(H) 11.0 - 15.0 % 10/17/2025 10:59 AM EST [facility] Platelets 61(L) 140 - 400 10E3/uL 10/17/2025 10:59 AM EST [facility] MPV 8.2 7.5 - 11.5 fL 10/17/2025 10:59 AM EST [facility] Whole Blood 10/17/2025 10:1 8 AM EST 10/17/2025 10:46 AM EST Kassi INTERIANO LAB BLOOD ORDERABLES Final Re sult Performing Organization Address City/[facility] Co de Phone Number [facility] [address] [facility] [place]. [address] * Toxoplasma gondii Antibody, IgG (10/17/2025 10:18 AM EST) Toxoplasma Gondii IgG <3.0 0.0 - 7.1 IU/mL 10/18/2025 4:54 AM EST [facility] Comment: Negative <7.2 Equivocal 7.2 - 8.7 Positive >8.7 Serum 10/17/2025 10:1 8 AM EST 10/18/2025 5:06 AM EST Narrative [facility] - 10/18/2025 5:06 AM EST PERFORMED AT: [address] [id number] VIOLIN REPAIRER: Mateo Miller, PhD PHONE: [phone] Kassi INTERIANO LAB BLOOD ORDERABLES Final Re sult [facility] [address] [facility] [place]. [address] * X-ray Portable Chest (10/17/2025 10:11 [...] 25 mg 25 mg, Oral, Once, On 10/24/25 at 0900, For 1 dose, POD #7 [...] SILVIO)1220 (New Bag - Provider: Charbel Ji, SILVIO) [...] Chelsie Haley MD)2100 (Hold - Provider: Anne Vial RN - Reason: Other) 0500 (Hold - [...] Units (COMPLETED) 4 Units, Subcutaneous, Once, On Wed10/20/25 at 0600, For 1 dose, HIGH ALERT MEDICATION 0604 (Given - Provider: Anne Vail RN) magnesium sulfate in sterile water 100 mL IVPB 4 g (COMPLETED) 4 g, Intravenous, at 25 mL/hr, Once, On Wed10/22/25 at 0800, For 1 dose 0919 (New Bag - Provider: Charbel Ji RN)1000 (Rate/Dose Verify - Provider: Charbel Ji, RN)1100 (Rate/Dose Verify - Provider: Charbel Ji [...] documented as of this encounter Care Teams Anthropological Linguist Relationship Specialty Start Date End Date System, Provider Not In PCP - General 09/10/25 10/24/25 documented as of this encounter
--- OUTSIDE RECORDS SUMMARY | 2025-10-17 13:37 | XMS_ITS | Encounter Summary ---
Author Organization [facility] Address [address] [place] [address] Care Team Providers Care Plastics Plater Name Role Phone System, Provider Not In [...] release of HIV test results or diagnoses. [id number] Reason for Visit * Auth/Cert (Routine) Specialty Diagnoses / Procedures Referred By Gianna t Referred To Contact Diagnoses TRANSPLANT LIVER Procedures TRANSPLANT LIVER [facility] [address] [place] [address] Phone: tel: Referral ID Status Reason Start Date Expiration Date Visits Re quested Visits Authorized [id number] 1 1 Encounter Details Date Type Department Care Team (Late st Contact Info) Description 10/17/2025 1:37 PM EST Anesthesia Event [facility] [address] [place] [address] Oskar Torres MD [address] [place] [address] Ann Blackwell MD [address] [place] [address] Anesthesia Record Procedure Summary Procedure Name Responsible Anesthesiologist Anesthesia Start Time Anesthesia Stop Time TRANSPLANT LIVER (Abdomen) Oskar Torres MD 10/17/25 1337 10/17/25 2245 Events Date Time Event Comment 10/17/2025 1230 1337 An Start 1337 An Start Data 1349 An Induction 1350 An Intubation 1446 Time Out 1716 Provider Handoff Type of Ane sthetic: {Type of Anesthesia:8320188842} Airway: Type: {Airway:1820336961} Difficult BMV / Intubation: {YES/NO WITH YES WILDCARD:01896095} Vascular Access: {Vascular Access:7425125889} Monitors: {Monitor:5109465640} Patient Specific Management Goals: {yes/no :40434116} Outstanding Issues to Address: {Outstanding Issues:7278233704} Disposition: {Disposition:4777148294} 1723 Anhepatic Phase 1745 Quick Note IVC [...] sodium chloride 0.9% 1 00 mL IVPB (Krzl8Zsz) 6 g cefTRIAXone (ROCEPHIN) 2 g in [...] Per order 10/17/25 0000 by Karen Washington, PRODUCT PROMOTER SALES PERSON 10/18/25 0800 by Angela Tamez RN Peripheral [...] La O RN 10/22/25 1430 by Karolyn iJ RN Drain 10/17/25; 2128; 2; B ulb; [...] living in a usp (including now)? No 10/17/2025 Utilities Answer Date Recorded In the past 12 months has th e [place], gas, oil, or water company threatened to [...] Size: Regular Pulse: 65 69 62 Resp: 09 23 12 Temp: 98.2 ??F (36.8 ??C) TempSrc: [place] SpO2: 98% 99% 98% 95% Weight: Height: Last Temperature: 98.2 ??F (36.8 ??C) (10/19/2025 4:00 AM) Complications: There were no known notable events for this encounter. documented in this encounter H&P Notes * Slade Munoz MD - 10/17/2025 11:22 AM EST [facility] DEPARTMENT OF ANESTHESIOLOGY PRE-PROCEDURAL EVALUATION David [...] a power mower. Hypertension is. (-) past [place], CAD, cardiomyopathy, CABG/stent, dysrhythmias, angina, CHF. Neuro/Muscoloskeletal/Psych: [...] Insecurity: No Food Insecurity (06/15/2025) Received from [facility] Hunger Vital Sign Within the past 12 months, you worried that your food would run out before you got the money to buymore.: Never true Within the past 12 months, the food you bought just didn't last and you didn't have money to get more.: Never true Transportation Needs: No Transportation Needs (06/15/2025) Received from [facility] PRAPARE - Transportation In the past 12 months, has lack of transportation kept you from medical appointments or from getting medications?: No In the past 12 months, has lack of transportation kept you from meetings, work, or from getting things needed for daily living?: No Physical Activity: Inactive (06/15/2025) Received from [facility] Exercise Vital Sign On average, how many days per week do you engage in moderate to strenuous exercise (like a brisk walk)?: 0 days On average, how many minutes do you engage in exercise at this level?: 0 min Stress: No Stress Concern Present (06/15/2025) Received from [facility] [place] [facility] Occupational Health - Occupational Stress Questionnaire Do you feel stress - tense, restless, nervous, or anxious, or unable to sleep at night because yourmind is troubled all the time - these days?: Only a little Social Connections: Socially Integrated (06/15/2025) Received from [facility] Social Connection and Isolation Panel In a typical week, how many times do you talk on the phone with family, friends, or neighbors?: More than three times a week How often do you get together with friends or relatives?: More than three times a week How often do you attend adventist or tenriism services?: More than 4 times per year Do you belong to any clubs or organizations such as adventist groups, unions, fraternal [...] agreed to the planabove. Slade Munoz MD, [facility] Department of Anesthesiology [1] Allergies Allergen Reactions [...] Date/Time: 10/17/2025 2:15 PM Performed by: Evelio Joens MD Authorized by: Slade Munoz MD Verbal [...] Procedure: Insert arterial line Slade Munoz MD, [facility] Department of Anesthesiology * Slade Owusu DO [...] SWAN JS Routine 10/17/2025 2:36 PM EST ANESTHESIA DUAL LUMEN INTRODUCER (MAC) CENTRAL LINE KIT Routine 10/17/2025 2:36 PM EST CENTRAL LINE SINGLE LUMEN PERFORMABLE Routine 10/17/2025 2:36 PM EST INSERT ARTERIAL LINE Routine 10/17/2025 2:15 PM EST documented in this encounter Results * CENTRAL LINE SINGLE LUMEN PERFORMABLE, ANESTHESIA PULMONARY ARTERY CATHETER (10/17/2025 2:36 PM [...] post op PA catheter complications: None Result [facility] Slade Munoz MD IV THERAPY ORDERABLES Final [...] by ICU team post op Complications: none Result [facility] Slade Munoz MD PROCEDURE/MINOR SURGICAL ORDERAB LES [...] Admitted) 10/17/25 0700 - 10/18/25 0659 Shift 5449-7760 9949-6679 24 Hour Total 1102-0879 2402-1776 6594-3429 24 Hour Total INTAKE I.V. 8000(80.2) 8000(80.2) [...] in sodium chloride 0.9% 100 mL IVPB (Poqq9Srp)) 100 200 300 Volume (mL) (albumin human bottle 5%) 500 500 Volume (mL) (albumin human bottle 25%) 50 50 Volume (mL) (cefTRIAXone (ROCEPHIN) 2 g in sodium chloride 0.9% 20 mL IV Push) 20 20 Shift Total(mL/kg) 120(1.2) 57641(138.3) 93479(139.5) OUTPUT Urine 1850 1850 Urine 1850 1850 Urine Occurrence 1 x 1 x Blood 23123 34287 Est Blood Loss 02846 27793 Shift Total(mL/kg) 33310(128.8) 66193(128.8) Weight (kg) 99.8 99.8 99.8 99.8 documented [...] in sodium chloride 0.9% 100 mL IVPB (Uqua9Xov) 2 g, Intravenous, at 200 mL/hr, Once, On Wed10/17/25 at 1000, For 1 dose, Begin infusion 20-60 minutes prior to incision Use Sjlr7Ure Adapter - Mix Thoroughly Before Administration, Pre-op [...] documented as of this encounter Care Teams Plastics Plater Relationship Specialty Start Date End Date System, Provider Not In PCP - General 09/10/25 10/24/25 documented as of this encounter
--- OUTSIDE RECORDS SUMMARY | 2025-10-30 09:00 | XMS_ITS | Encounter Summary ---
Author Organization [facility] Address [address] [place] [address] Care Team Providers Care Mold Filler Plastic Dolls Name Role Phone Dr. Chris Medel MD [...] release of HIV test results or diagnoses. [id number] Reason for Visit * Reason Comments Liver Transplant Follow-up Encounter Details Date Type Department Care Team (Late st Contact Info) Description 10/30/2025 9:00 AM EST Office Visit [facility] Liver Transplant at [address] [address] [address] Troy MD [address] [place] [address] Buddy Zimmerman MD [address] [place] [address] Encounter for therapeutic drug level monitoring (Primary Dx); Liver replaced by transplant (CMS-HCC); Immunosuppression ([facility]); Immunosuppressive management encounter following liver transplant ([facility]) Social History Tobacco Use Types Packs/Day Years [...] in a long term (including now)? No 10/17/2025 Utilities Answer Date Recorded In the past 12 months has th e [employer], gas, oil, or water [employer] threatened to shut off services in your home? No 10/17/2025 Sex and Gender Information Value Date Recorded Sex Assigned at Not on file Legal Sex Male 3:33 PM EDT Gender Identity Not on file Sexual Orientation Not on file documented as of this encounter Last Filed Vital Signs Vital Sign Reading Time Taken Comments Blood Pressure 109/67 10/30/2025 8:15 AM EST Pulse 79 10/30/2025 8:15 AM EST Temperature 36.3 C (97.4 F) 10/30/2025 8:15 AM EST Respiratory Rate 16 10/30/2025 8:15 AM EST Oxygen Saturation 100% 10/30/2025 8:15 AM EST Inhaled Oxygen Concentration 100% 10/30/2025 8 :15 AM EST Weight 83.7 kg (184 lb 9.6 oz) 10/30/2025 8:15 A M EST Height 167.6 cm (5' 6 ) 10/30/2025 8:15 AM EST Body Mass Index 29.8 10/30/2025 8:15 AM EST documented in this encounter Functional Status * Body Composition Question Answer Date of Assessment Author Weight Change (lbs) 0 10/30/2025 8:15 AM ES T Jojo Coleman MA * NARxCHECK Sedatives Score Answer Date of Assessment Author 060 10/30/2025 8:13 AM EST Interface , Doc Flowsheet In * NARxCHECK Stimulants Score Answer Date of Assessment Author 000 10/30/2025 8:13 AM EST Interface , Doc Flowsheet In * NARxCHECK Narcotics Score Answer Date of Assessment Author 110 10/30/2025 8:13 AM EST Interface , Doc Flowsheet In * Height Percent Change Answer Date of Assessment Author 0 10/30/2025 8:15 AM EST Cam Coleman MA * HIDDEN-Infusion Dashboard Answer Date of Assessment Author 109 10/30/2025 8:15 AM EST Cam Coleman MA documented as of this encounter Patient Instructions * Patient Instructions* Pedro Pinzon MD - 10/30/2025 9:00 AM EST Stop lasix (furosemide), potassium chloride, and phos. Use methocarbamol (robaxin) as needed. Stop mid-day dose first. Avoid NSAID medications (ibuprofen, naproxen, Aleve, Motrin, Advil) Avoid alcohol Labs twice weekly Follow up in post-transplant clinic in 2 weeks. documented in this encounter Progress Notes * Sadie Jones, PharmD - 10/30/2025 9:00 AM EST Transplant Pharmacist Assessment and Recommendations: Current Outpatient Medications Medication Sig acetaminophen (TYLENOL) 325 MG tablet Take 3 [...] mouth 2 times a day with meals. furosemide (LASIX) 40 MG tablet Take 1 tablet (40 mg total) by mouth daily. insulin lispro 100 unit/mL InPn Administer insulin with meals per sliding scale: Blood glucose 150-199 mg/dL =1units, Blood glucose 200-249 mg/dL =2 units, Blood glucose 250-299 mg/dL =3 units, Bloodglucose 300-349 mg/dL =4 units, Blood glucose greater than 349 mg/dL = 5 units lancets Misc Use to test blood sugar four times a day. methocarbamoL (ROBAXIN) 500 MG tablet Take 1 tablet (500 mg total) by mouth 3 times a day. mycophenolate (CELLCEPT) 250 mg capsule Take 2 capsules (500 mg total) by mouth 2 times a day. NIFEdipine (PROCARDIA-XL) 30 MG (OSM) 24 hr tablet Take 1 tablet (30 mg total) by mouth daily. pantoprazole (PROTONIX) 40 MG tablet Take 1 [...] tablet (10 mEq total) by mouth daily. predniSONE (DELTASONE) 5 MG tablet Take 6 [...] mg by mouth 2 times a day. sulfamethoxazole-trimethoprim (BACTRIM) 400-80 mg per tablet Take 1 tablet by mouth daily. tacrolimus (PROGRAF) 1 MG capsule Take 5 capsules (5 mg total) by mouth 2 times a day. No current facility-administered medications for this visit. OLT Indication: ALD and A1AT Immunosuppression: STANDARD - POD #13 Perioperative immunosuppression regimen included: steroid taper, tacrolimus and Mycophenolate Mofetil. Currently on tacrolimus 5mg bid, mycophenolate 500mg BID, and prednisone 20mg. Administers medications at: 9 am/pm Goal Tacrolimus level per protocol is 10-12 ng/mL. Donor: n/a Rejection History: none Prophylaxis: VTE-Caprini score 10 (Apixiban 2.5mg bid): 30 day duration per protocol: Discontinue: n/a (not discharged on therapy due to thrombocytopenia) Fungal: LOW RISK - no therapy indicated PCP (Bactrim): 3 months per protocol. Discontinue: 01/15/26 Viral (Acyclovir): 1 month per protocol (D-/R-). Discontinue: 11/17/25 Blood Sugars: NOT diabetic prior to transplant Discharged on correction insulin and with home monitoring. Continue to monitor 10/30/25: reviewed; readings range: AM: 104-123, lunch: 136-275, dinner: 182-312 and bedtime: 144-269. Continues on correction insulin (Prednisone 20mg/day) Blood pressure: ON Therapy (nifedipine 30mg/day) BP: 109/67 mmHg, pulse 79 in clinic. Hasn't taken medications yet today. Reviewed home log and planto continue on therapy. Continue to monitor. Other: Pain (Category B): reports pain is controlled. Discharged on acetaminophen 975mg every 8 hours, methocarbamol 500mg tid and oxycodone PRN ASCVD Risk: 11.3% without a risk enhancing factor so no statin was started Pemgarda: not interested Strongyloides Ab+: received ivermectin x2 doses prior to transplant Adherence: Patient reports missing 0 doses since home The following barriers to adherence have been identified: none It is my assessment that the patient demonstrates satisfactory adherence and medication understanding. reviewed medications/dosages with me from med card. Had questions regarding no refills on furosemide, KCl and phos; explained no refills intentional as team to assess if still indicated todayand will clarify at the end of the visit (discussed with provider) Recommendations: Tacrolimus: level PENDING ng/ml (10/30/25) on 5mg bid since discharge VTE Prophylaxis: not initiated due to thrombocytopenia (assess with current labs and initiated as indicated) BS: on correction; assessed. Pain: continue to monitor and taper therapies as indicated Furosemide, KCl and phosphoruous: assess and if still indicated provide refills * Buddy Zimmerman MD - 10/30/2025 9:00 AM EST Transplant Hepatology Follow Up HPI: This is a follow up visit for David Ppo who is a 65 y.o. 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 Patient received organ from DBD donor. Operative course notable for L renal vein ligation for portal flow modulation. Post operative course notable for elevated opening liver enzymes, received NAC, POD5 US with elevated PV velocity. Immunosuppression was standard. Patient did not receive organ from increased risk donor. Path negative for malignancy. Reperfusion biopsy with 20% macrosteatosis and stage 2 fibrosis (BECK-CRN) Current immunosuppression is: Cellcept 500 mg BID; prednisone 20; Tacro 5 mg BID Interval History: Overall doing well with no major concerns or issues since leaving the hospital. Walking 250 ft to mailbox and back up hill. Appetite is not so good due to lack of taste but is eating well. Pain well controlled on tylenol and methocarbamol. Comprehensive review of systems performed. See full ROS in EMR. 12 point ROS was performed and negative except as noted above in the HPI. An extensive review of past records including prior office notes, labs, imaging, and pathology reports was performed from the Media tab, Care Everywhere and paper documents. 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 acyclovir Take 2 tablets (800 mg total) by mouth 2 times a day. alcohol swabs Use as instructed. glucose blood Use to test blood sugar four times a day. blood-glucose meter Use to test blood sugar four times a day. calcium-vitamin D Take 1 tablet by mouth 2 times a day with meals. furosemide Take 1 tablet (40 mg total) by mouth daily. insulin lispro Administer insulin with meals per sliding scale: Blood glucose 150-199 mg/dL =1units, Blood glucose 200-249 mg/dL =2 units, Blood glucose 250- 299 mg/dL =3 units, Blood glucose 300-349 mg/dL =4 units, Blood glucose greater than 349 mg/dL = 5 units lancets Use to test blood sugar four times a day. methocarbamoL Take 1 tablet (500 mg total) by mouth 3 times a day. mycophenolate Take 2 capsules (500 mg total) by mouth 2 times a day. NIFEdipine Take 1 tablet (30 mg total) by mouth daily. pantoprazole Take 1 tablet (40 mg total) by mouth every morning before breakfast. pen needle, diabetic For use with insulin pen. Use as instructed. polyethylene glycol Mix 1 capful (17 g) in 8 ounces of fluid and drink by mouth daily as needed forconstipation. potassium chloride Take 1 tablet (10 mEq total) by mouth daily. predniSONE Take 6 tablets by mouth in the morning on 10/23, then take 5 tablets by mouth on 10/24, and then starting on 10/25, take 4 tablets daily senna-docusate Take 1 tablet by mouth at bedtime as needed for constipation. phosphorus Take 250 mg by mouth 2 times a day. sulfamethoxazole-trimethoprim Take 1 tablet by mouth daily. tacrolimus Take 5 capsules (5 mg total) by mouth 2 times a day. No current facility-administered medications for this visit. Physical Examination: Vitals: 10/30/25 0815 BP: 109/67 BP Location: Right upper arm Patient Position: Sitting BP Cuff Size: Regular Pulse: 79 Resp: 16 Temp: 97.4 ??F (36.3 ??C) TempSrc: Oral SpO2: 100% Weight: 184 lb 9.6 oz (83.7 kg) Height: 5' 6 (1.676 m) Gen: Well-developed, well nourished. No acute distress. HEENT: Mucous membranes pink/moist. No scleral icterus. Neck: Neck is supple. No tracheal deviation. CV: Regular rate and rhythm. Normal S1 and S2. No murmurs/rubs/gallops. Lungs: Clear to auscultation bilaterally. No wheezes/rales/rhonchi. No respiratory distress. Abdomen: Soft, non-tender, non-distended stomach, no hepatosplenomegaly or palpable masses. Bowel sounds present. No ascites present. No rebound or guarding present. Well healed surgical scar Extremities: No bilateral lower extremity edema. No clubbing or cyanosis present. Skin: No bruising or rash noted. No spider angiomata or palmar erythema. Neuro: Alert and oriented to person, place, and time. CN 2-12 grossly intact. No gross motor defecits. No asterixis Psych: Normal mood and affect. Normal speech and behavior. Labs: Lab name 10/19/25 2303 10/20/25 0531 10/24/25 0723 HEMOGLOBIN 8.9* < > 9.6* HEMATOCRIT 25.8* < > 27.6* MEAN CORPUSCULAR VOLUME 93.2 < > 93.9 PLATELETS 20* < > 47 SODIUM 144 < > 136 POTASSIUM 3.6 < > 3.4 CHLORIDE 110 < > 105 CO2 25 < > 28* BUN 46* < > 16 CREATININE 1.24 < > 0.90 GLUCOSE 184* < > 100 PHOSPHORUS 4.9* < > 3 ALBUMIN 2.2* < > 2.3* ALBUMINKID 2.2* < > -- CALCIUM 7.1* < > 7.7 AST 223* < > 41 ALT 569* < > 210 BILIRUBIN TOTAL 1.0 < > 1 ALK PHOS 68 < > 149 INR 1.4* -- -- < > = values in this interval not displayed. Lab name 10/24/25 0723 TACROLIMUS BLOOD 6.4 Radiology: Explant pathology: Liver and gall bladder, [place], total hepatectomy with cholecystectomy: Liver: -Cirrhosis, mild septal inflammation; clinical history of alcohol associated liver disease and alpha-1 antitrypsin phenotype (M1Z). - Negative for neoplasm. - PASd stain highlights diagnostic intracytoplasmic globules. Assessment and Plan: 65yo, M POD#13 from OLT for alcohol cirrhosis with heterozygosity for A1AT (MZ) and C282Y. Post operative complications as noted above. - Graft function: Elevated enzymes likely ischemia-reperfusion. Liver enzymes downtrending. Elevated MPV velocity on POD 5 US. Repeat US sched for 11/13. - Immune suppression: most recent tacro level 6.4. Continue tacrolimus 5 mg BID and cellcept 500 mgBID and prednisone 20 mg daily. Will target tacro level closer to 10. Suspect will need higher dosebut will await today's trough level. - DVT ppx: Caprini score 10. DVT ppx held due to platelets - ID prophylaxis/surveillance: bactrim until 3, valcyte until 11/17 (D-/R-). Patient will undergo universal screening with labs on day 30 and 1 year. - Diabetes: not diabetic prior to txp. Continue SSI. - HTN: continue nifedipine 30 mg daily. BP well controlled. - Wound: radha out in 2 weeks - GI: pantoprazole ppx. - Psychosocial: Patient w/ h/o alcohol abuse. Will check serial PETHs - Pain: change methocarbamol to PRN and wean as able. Continue acetaminophen. - Nutrition: patient continues close f/u w/ transplant regulatory affairs intern. - Bone health: Vit D level to be drawn ~POD#90. - Labs: Labs (CBC w/ diff, renal panel, liver panel, tacro level) twice weekly. Lipid panel, [id number] Vit D level to be drawn at POD#90, HgbA1C and Vit D level to be drawn at POD#180. - Follow up: RTC 2 weeks Seen and discussed with Dr. Zimmerman. Pedro Pinzon MD Gastroenterology & Transplant Hepatology Fellow, PGY6 This note was completely edited, written and reviewed by me and consists of information cut and pasted from the my most recent visit, my smart phrases and other Epic tools. I have personally reviewedall aspects of this note to at least include reviewing this patient's chart and problem list, updating the history, physical exam, lab and procedure results, and assessment and plan as detailed aboveand below. As such this visit note reflects my current evaluation and management for this patient. I have reviewed interval / recent lab work including: CBC, renal, hepatic, INR, viral studies, and all other labs for chronic liver disease relating to their medical condition. I have independently reviewed the patients recent radiologic imaging including any CT scans, MRI, ultrasound or endoscopicprocedures. The patient's care was also discussed with our multidisciplinary team. Finally, I have reviewed independently any interval liver and GI pathology. I spent over 40 minutes of time on the care of this patient on this day. Buddy Zimmerman MD Jewel Hole Drillerwaste management specialist Gastroenterology and Transplant Hepatology [1] Allergies Allergen Reactions Lisinopril Other (See Comments) * Ruma Benjamin RN - 10/30/2025 9:00 AM EST After visit summary including patient instructions reviewed with patient and SO. Continue IS medication regimen of FK at 5mg and MMF at 500mg BID unchanged pending lab results. Continue Pred at 20mg daily. Avoid NSAIDs and ETOH. Labs twice weekly. Follow-up in 2 weeks. Pt verbalized understanding. Checked with patient to see if prescription refills and/or lab orders were needed. Updated preferred pharmacy and preferred lab information in patient demographics. Care coordinated with other team members and other medical providers as needed. Patient presents with the following needs: Pt denies needs or concerns at this time. documented in this encounter Plan of Treatment Not on file documented as of this encounter Visit Diagnoses Diagnosis Encounter for therapeutic drug level monitoring- Primary Liver replaced by transplant (CMS-HCC) Liver replaced by transplant Immunosuppression (CMS-HCC) Immunosuppressive management encounter following liver transplant (CMS-HCC) documented in this encounter Additional Health Concerns Assessment Noted Time PHQ-9 Depression Total Score: 8 09/10/20 25 11:09 AM EDT documented as of this encounter Care Teams Mold Filler Plastic Dolls Relationship Specialty Start Date End Date Dr. Chris Medel MD [address] [address] [address] [place] [address] PCP - General Primary Care 10/25/25 documented as of this encounter
--- OUTSIDE RECORDS SUMMARY | 2025-11-02 13:30 | XMS_ITS | Encounter Summary ---
Author Organization Healthcare Address [address] [place] [address] Care Team Providers Care Vacuum Truck Driver Name Role Phone Ruma Hernández CORE MAKER HELPER Unavailable [phone] Chris Medel MD Primary Care Provider [phone] Encounter Details Date Type Department Care Team (Late st Contact Info) Description 07/05/2025 Results Follow-Up [facility] Transplant Center [address] [place] [address] Meaghan Le, RN [facility] LIVER [id number] [address] [place] [address] Social History Tobacco Use Types Packs/Day Years [...] you attend [facility] or advent services? More than 4 times per year 02/19/2025 Do you belong to any clubs o r organizations such as shinto groups, unions, [employer] or athletic groups, or school groups? Yes [...] at all 06/15/2025 [facility] - Occupational Stress Questionnaire Answer [...] drink first t luisa in the morning (EYE-FINE GRADE BULLDOZER OPERATOR) to steady your nerves or to get rid of a hangover? 0 06/14/2025 CAGE Questionnaire Score 0 025 Utilities Answer Date Recorded In the past 12 months has th [employer], gas, oil, or water [employer] threatened to shut off services in your [...] [facility], [address] [place] [address] Suhail Brock MD [address] [facility] [address] [place] [address] 01/24/2026 4:40 PM EDT Office Visit [facility] [address] [facility], [address] [place] [address] Moustapha Katz MD [address] [facility] [address] [place] [address] documented as of this encounter [...] as of this encounter Care Teams Vacuum Truck Driver Relationship Specialty [place] [address] PCP - General 03/14/25 Ruma Hernández APRN [address] [place] [address] Referring Physician Gastroenterology 07/30/23 documented as of this encounter
--- OUTSIDE RECORDS SUMMARY | 2025-11-02 13:31 | XMS_ITS | Encounter Summary ---
Author Organization Healthcare Address [address] [place] [address] Care Team Providers Care Otr Owner Operator Truck Driver Name Role Phone Ruma Hernández PAD ASSEMBLER Unavailable [phone] Chris Medel MD Primary Care Provider [phone] Encounter Details Date Type Department Care Team (Late st Contact Info) Description 10/09/2025 Results Follow-Up [facility] Transplant Center [address] [place] [address] Meaghan Le, RN [facility] LIVER [id number] [address] [place] [address] Social History Tobacco Use Types Packs/Day Years [...] do you attend [facility] or confucianist services? More than 4 times per year 02/19/2025 Do you belong to any clubs o r organizations such as hindu groups, unions, Mevioternal or athletic groups, or school groups? Yes [...] at all 06/15/2025 [facility] - Occupational Stress Questionnaire Answer Date Recorded [...] drink first t luisa in the morning (EYE-STAVE LOG CUT OFF SAW OPERATOR) to steady your nerves or to get rid of a hangover? 0 06/14/2025 CAGE Questionnaire Score 0 025 Utilities Answer Date Recorded In the past 12 months has th e [employer], gas, oil, or water [employer] threatened to shut off services in your [...] [address] [facility], [address] [place] [address] Suhail Brock MD [address] [place] [address] [place] [address] 01/24/2026 4:40 PM EDT Office Visit [facility] [address] [facility], [address] [place] [address] Moustapha Katz MD [address] [facility] [address] [place] [address] documented as of this encounter [...] documented as of this encounter Care Teams Otr Owner Operator Truck Driver Relationship Specialty Start [place] [address] PCP - General 03/14/25 Ruma Hernández APRN [address] [facility] [address] [place], [place] [address] Referring Physician Gastroenterology 07/30/23 documented as of this encounter
--- OUTSIDE RECORDS SUMMARY | 2025-11-02 13:31 | XMS_ITS | Encounter Summary ---
Author Organization [facility] Address [address] [place] [id number] Care Team Providers Care Education Director Name Role Phone System, Provider Not In [...] release of HIV test results or diagnoses. [id number] Reason for Visit * Reason Comments Transitions Of Care Encounter Details Date Type Department Care Team (Late st Contact Info) Description 10/18/2025 Pharmacy Services [facility] at [address] [phone] Dory Hannah RPh Social History Tobacco Use [...] of Care Patient's prescriptions were sent to [facility] for a Transplant benefits review. David Pop received a Liver Transplant on 10/17/25 at [facility]. The patient's discharge medications were sent to [facility]charge [facility] for anticipated dischargeof 10/22/25. The patient has a [employer] commercial insurance plan to cover prescriptions. Currently, [...] in any of the prescriptions sent to [facility] Discharge Pharm[facility]. Medication Discharge Service will deliver all medications that they are able to fill to patient's bedside prior to discharge from hospital. Transplant team will provide education to the patient priorto discharge from the hospital. The patient has been referred to the [facility] Transplant Team. The patient should visit [facility] for assistance if problems arise with the prescriptions. If questions arise regarding discharge medications, please call [phone]. Rosario Hannah PharmD Transitions of Care Pharmacist [phone] documented in this encounter Plan of Treatment Not on file documented as of this encounter Visit Diagnoses Not on filedocumented in this encounter Additional Health Concerns Assessment Noted Time PHQ-9 Depression Total Score: 8 09/10/20 11:09 AM EDT documented as of this encounter Care Teams Education Director Relationship Specialty Start Date End Date System, Provider Not In PCP - General 09/10/25 10/24/25 documented as of this encounter
--- OUTSIDE RECORDS SUMMARY | 2025-11-02 13:31 | XMS_ITS | Encounter Summary ---
Author Organization [facility] Address [address] [place] [id number] Care Team Providers Care Oil Well Service Operator Name Role Phone System, Provider Not [...] release of HIV test results or diagnoses. [id number] Health Encounter Details Date Type Department Care Team (Late st Contact Info) Description 10/17/2025 Chart Note [facility] Liver Transplant at [address] [phone] Maeve Hubbard, RN Per Dr Drew, patient [...] any time in the past 12 m [facility], were you homeless or [...] no extra vessels on 10/17/2025. [employer] and [employer] updated. documented in this encounter Plan of Treatment Not on file documented as of this encounter Visit Diagnoses Not on filedocumented in this encounter Additional Health Concerns Assessment Noted Time PHQ-9 Depression Total Score: 8 09/10/20 11:09 AM EDT documented as of this encounter Care Teams Oil Well Service Operator Relationship Specialty Start Date End Date System, Provider Not In PCP - General 09/10/25 10/24/25 documented as of this encounter
--- OUTSIDE RECORDS SUMMARY | 2025-11-02 13:31 | XMS_ITS | Encounter Summary ---
Author Organization [facility] Address [address] [place] [id number] Care Team Providers Care Care Provider Name Role Phone System, Provider Not In [...] release of HIV test results or diagnoses. [id number] Reason for Visit * Reason Comments Appointment Advice Only Encounter Details Date Type Department Care Team (Late st Contact Info) Description 10/17/2025 Telephone [facility] Kidney Transplant at [address] [phone] Lore Burgos MA Appointment; Advice [...] in the hospital Please call Stacy at [phone] documented in this encounter Plan of Treatment Not on file documented as of this encounter Visit Diagnoses Not on filedocumented in this encounter Additional Health Concerns Assessment Noted Time PHQ-9 Depression Total Score: 8 09/10/20 11:09 AM EDT documented as of this encounter Care Teams Care Provider Relationship Specialty Start Date End Date System, Provider Not In PCP - General 09/10/25 10/24/25 documented as of this encounter
--- OUTSIDE RECORDS SUMMARY | 2025-11-02 13:31 | XMS_ITS | Clinical Summary ---
Author Organization [facility] Address [address] [place] [address] Care Team Providers Care Hospital Librarian Name Role Phone Dr. Chris Medel MD [...] therelease of HIV test results or diagnoses. [id number] Allergies Active Allergy Reactions Criticality Noted Date [...] Encounters Date Type Department Care Team Description 11/02/2025 Telephone [facility] Liver Transplant at [address] [place] [phone] Ruma Benjamin, SILVIO Results; Critical Lab Results 11/02/2025 Chart Note [facility] Liver Transplant at [address] [place] [phone] Pita Pike MA 11/02/2025 Telephone [facility] Liver Transplant at [address] [place] [phone] Pita Pike MA 11/02/2025 Telephone [facility] Liver Transplant at [address] [place] [phone] Nina Hawkins MA 11/01/2025 Orders Only [facility] Liver Transplant at [address] [place] [phone] Ruma eBnjamin, RN S/P liver transplant ([facility]-HCC) (Primary Dx); Dark brown urine 10/31/2025 Telephone [facility] Liver Transplant at [address] [place] [phone] Ruma Benjamin, RN Results 10/30/2025 9:00 AM EST Office Visit [facility] Liver Transplant at [address] [place] [address] [address] Troy MD Myer, Adam, MD Encounter for therapeutic drug level monitoring (Primary Dx); Liver replaced by transplant ([facility]-HCC); Immunosuppression ([facility]-HCC); Immunosuppressive management encounter following liver transplant ([facility]-HCC) 10/30/2025 Social Work [facility] Liver Transplant at [address] [place] [address] Michelle Ho, ICE PLATFORM SUPERVISOR, CLINICAL DATA ABSTRACTOR 10/30/2025 Chart Note [facility] Liver Transplant at [address] [place] [address] Pita Pike MA FK pending [facility] 10/30/2025 Nutrition [facility] Kidney Transplant at [address] [place] [phone] Oskar Arango, RD 10/25/2025 Telephone [facility] Liver Transplant at [address] [place] [address] Giovanna June, RN 10/25/2025 Telephone [facility] Liver Transplant at [address] [place] [phone] Pita Pike MA 10/25/2025 Orders Only [facility] Liver Transplant at [address] [place] [address] Felice Nugent III, MD 10/24/2025 Chart Note [facility] Liver Transplant at [address] [address] Pita Pike MA FK pend [facility] 10/24/2025 Telephone [facility] Liver Transplant at [address] [address] Linn Tiwari MA 10/23/2025 Orders Only [facility] Liver Transplant at [address] [address] Giovanna June, RN Liver replaced by transplant ([facility]-HCC) (Primary Dx) 10/22/2025 Chart Note [facility] Liver Transplant at [address] [address] Cori Womcak, PharmD Liver Transplant Pharmacy Discharge Note 10/22/2025 Orders Only [facility] Liver Transplant at [address] [address] Ruma Benjamin, SILVIO S/P liver transplant ([facility]-HCC) (Primary Dx); Immunosuppression (CMS-HCC) 10/22/2025 Orders Only [facility] Liver Transplant at [address] [address] Felice Nugent III, MD Liver replaced by transplant ([facility]-HCC) (Primary Dx); Immunosuppressive management encounter following liver transplant (CMS-HCC) 10/19/2025 Education Chart Note [facility] Liver Transplant at [address] [address] Giovanna June RN 10/18/2025 Chart Note [facility] Kidney Transplant at [address] [address] [place] [address] Ailin Wells Txp Patient Called In 10/18/2025 Pharmacy Services [facility] Outpatient Pharmacy at [address] [place] [address] Dory Hannah RPh 10/18/2025 Chart Note [facility] Liver Transplant at [address] [place] [phone] Giovanna June, RN I introduced myself as inpatient liver bereavement program coordinator, explained 10/18/2025 Chart Note [facility] Liver Transplant at [address] [address] Rosangela Lewis, SILVIO I have verified that the donor serologies entered in Derm[facility] match the donor 10/17/2025 1:37 PM EST Anesthesia Event [facility] [address] [place] [phone] Oskar Torres MD Edwards, Anna, MD 10/17/2025 12:00 PM EST - 10/17/2025 8:12 PM EST Surgery [facility] [address] [place] [phone] Vani Drew MD TRANSPLANT LIVER 10/17/2025 8:52 AM EST - 10/22/2025 4:06 PM EST Hospital Encounter [facility] SICU [address] [place] [phone] Vani Drew MD S/P liver transplant (CMS-HCC) (Primary Dx); End stage liver disease (CMS-HCC); Immunosuppression (CMS-HCC) Discharge Disposition: Home WITH Home Health Care Services 10/17/2025 Chart Note [facility] Liver Transplant at [address] [address] Maeve Hubbard, RN Per Dr Drew, patient received whole liver with no extra vessels on 10/17/2025 Telephone [facility] Kidney Transplant at [address] [place] [phone] Lore Burgos MA Appointment; Advice Only 10/17/2025 Travel 10/17/2025 Telephone [facility] Liver Transplant at [address] [place] [phone] Joslyn Faulkner, SILVIO 10/03/2025 Telephone [facility] Liver Transplant at [address] [place] [phone] Pb Sy, SILVIO 10/03/2025 Chart Note [facility] Kidney Transplant at [address] [place] [phone] Ailin Wells Organ: Liver 10/03/2025 Telephone [facility] Liver Transplant at [address] [place] [phone] Pb Sy, RN Appointment 09/25/2025 Telephone [facility] Liver Transplant at [address] [place] [phone] Chapito Alcantar, SILVIO 09/25/2025 Chart Note [facility] Liver Transplant at [address] [place] [phone] Chapito Alcantar, SILVIO UNOS VERIFICATION CHECK FORM 09/25/2025 Chart Note [facility] Kidney Transplant at [address] [place] [phone] Ailin Wells Authorization for listing 09/24/2025 1:00 PM EST Office Visit [facility] Liver Transplant at [address] [place] [address] Nigel Reaves MD Esophageal varices without bleeding, unspecified esophageal varices type (CMS-HCC) (Primary Dx); Alcoholic cirrhosis of liver with ascites (CMS-HCC); Hepatic encephalopathy (CMS-HCC); Pre-transplant evaluation for chronic liver disease; Ascites due to alcoholic cirrhosis (CMS-HCC) 09/24/2025 Orders Only [facility] Liver Transplant at [address] [place] [address] Chapito Alcantar, RN Alcoholic cirrhosis of liver with ascites ([facility]-HCC) (Primary Dx); Pre-transplant evaluation for chronic liver disease 09/24/2025 Chart Note [facility] Kidney Transplant at [address] [address] Ailin Wells Called local office again to get status of listing auth request. Spoke to 09/21/2025 Refill [facility] I[facility]D.C[facility] at [facility] [address] [facility] [address] [place] [address] Arturo Gibson, SILVIO 09/20/2025 Telephone [facility] Liver Transplant at [address] [address] Cori Dover MA 09/20/2025 Chart Note [facility] Liver Transplant at [address] [address] Chapito Alcantar, RN Spoke with patient's spouse and updated her on current bed situation. 09/19/2025 Telephone [facility] Liver Transplant at [address] [place] [address] Chapito Alcantar, RN 09/18/20[address]acy [address] [facility] [address] [place] [phone] Delaney Bahena RXT 09/17/2025 Refill [facility] at [facility] [address] [facility] [address] [place] [address] Johnny Dubois RN 09/17/2025 Telephone [facility] at [facility] [address] [facility] [address] [place] [phone] Navi Sims MD 09/13/2025 Chart Note [facility] Liver Transplant at [address] [address] Chapito Alcantar, SILVIO Multi-disciplinary Hepatobiliary Case Conference Review: 09/11/2025 Telephone [facility] Liver Transplant at [address] [address] Chapito Alcantar RN 09/11/2025 Chart Note [facility] Kidney Transplant at [address] [address] Ailin Wells Faxed Clinical for Listing/Txp Auth 09/11/2025 Telephone [facility] Liver Transplant at [address] [address] Chapito Alcantar RN 09/10/2025 4:35 PM EDT [facility] [address] [place] [phone] Buddy Zimmerman MD Alcoholic cirrhosis of liver with ascites (CMS-HCC); Pre-transplant evaluation for chronic liver disease 09/10/2025 2:00 PM EDT Office Visit [facility] Liver Transplant at [address] [phone] Unknown, Attending Provider Navi Sims MD Pre-transplant evaluation for chronic liver disease (Primary Dx); Encounter for pre-transplant evaluation for liver transplant 09/10/2025 1:30 PM EDT Office Visit [facility] Liver Transplant at [address] [place] [address] Lane Troy MD Alcoholic cirrhosis of liver with ascites (CMS-HCC) (Primary Dx); Pre-transplant evaluation for chronic liver disease 09/10/2025 1:00 PM EDT Office Visit [facility] Liver Transplant at [address] [address] Buddy Zimmerman MD Pre-transplant evaluation for chronic liver disease (Primary Dx); Alcoholic cirrhosis of liver with ascites (CMS-HCC) 09/10/2025 12:00 PM EDT Office Visit [facility] Anesthesia Transplant at [address] [address] Unknown, Attending Provider Stefan Gonzalez MD Pre-transplant evaluation for chronic liver disease (Primary Dx) 09/10/2025 10:03 AM EDT - 09/10/2025 11:59 PM EDT Hospital Encounter [facility] [address] [place] [address] Nigel Reaves MD Pre-transplant evaluation for chronic liver disease Discharge Disposition: Home or Self Care WITHOUT Home Care Services 09/10/2025 Social Work [facility] Liver Transplant at [address] [address] Michelle Ho, ICE PLATFORM SUPERVISOR, CLINICAL DATA ABSTRACTOR 09/10/2025 Nutrition [facility] Kidney Transplant at [address] [place] [address] Oskar Arango, RD 09/10/2025 Chart Note [facility] Liver Transplant at [address] [place] [address] Chapito Alcantar RN Alcoholic cirrhosis of liver with ascites (CMS-HCC) (Primary Dx); Pre-transplant evaluation for chronic liver disease 09/08/2025 8:34 PM EDT - 09/08/2025 11:59 PM EDT Hospital Encounter [facility] Radiology [address] [place] [address] System, Provider Not In Discharge Disposition: Home or Self Care WITHOUT Home Care Services 09/08/2025 8:34 PM EDT - 09/08/2025 11:59 PM EDT Hospital Encounter [facility] [address] [place] [address] System, Provider Not In Discharge Disposition: Home or Self Care WITHOUT Home Care Services 09/08/2025 8:31 PM EDT - 09/08/2025 8:33 PM EDT Hospital Encounter [facility] [address] [place] [address] System, Provider Not In Discharge Disposition: Home or Self Care WITHOUT Home Care Services 09/08/2025 8:31 PM EDT - 09/08/2025 8:33 PM EDT Hospital Encounter [facility] [address] [place] [address] System, Provider Not In Discharge Disposition: Home or Self Care WITHOUT Home Care Services 09/05/2025 Telephone [facility] Liver Transplant at [address] [address] Chapito Alcantar, SILVIO 09/05/2025 Telephone [facility] Liver Transplant at [address] [address] Cori Dover MA 09/05/2025 Abstract [facility] Liver Transplant at [address] [address] Chapito Alcantar, RN Alcoholic cirrhosis of liver with ascites (CMS-HCC) (Primary Dx); Ascites due to alcoholic cirrhosis (CMS-HCC); Hepatic encephalopathy (CMS-HCC); Esophageal varices without bleeding, unspecified esophageal varices type (CMS-HCC); Pre-transplant evaluation for chronic liver disease 08/13/2025 Telephone [facility] Liver Transplant at [address] [place] [address] Cori Dover MA 08/13/2025 Telephone [facility] Liver Transplant at [address] [place] [address] Cori Dover MA 08/13/2025 Orders Only [facility] Liver Transplant at [address] [place] [address] Chapito Alcantar RN Pre-transplant evaluation for chronic liver disease (Primary Dx) 08/13/2025 Chart Note [facility] Kidney Transplant at [address] [address] Ailin Wells Patient is financially cleared for liver transplant evaluation from Last 3 Months Immunizations Immunization Administration [...] Required) Completed Medical Devices Implanted Type Area Consumer Attorney Device Identifier Shelf Expiration Date Model / Serial / Lot Liver Implanted:Qty: 1 on 10/17/2025 by Vani Drew MD at [facility] Main [id number] / [id number] / [id number] Procedures Procedure Name Priority Date/Time Associated Diagnosis Comments RENAL FUNCTION PANEL W/O EGFR Routine 11/01/2025 7:05 AM EST CBC AND DIFFERENTIAL Routine 11/01/2025 7:05 AM EST HEPATIC FUNCTION PANEL Routine 7:05 AM EST TACROLIMUS LEVEL Routine 10/30/2025 8:07 AM EST [...] Routine 10/24/2025 7:23 AM EST US DUPLEX [id number] COMPLETE STAT 10/22/2025 10:24 AM EST US [...] Routine 10/18/2025 10:29 AM EST US DUPLEX [id number] COMPLETE STAT 10/18/2025 9:35 AM EST US [...] 08/29/2025 from Last 3 Months Results * Hepatic Function Panel (11/01/2025 7:05 AM EST) Only the most recent of18 resultswithin the time period is included. Bilirubin, Direct 4.8 Alkaline Phosphatase 335 ALT 96 AST 87 Total Bilirubin 7.4 Total Protein 5.7 Plasma Historical Provider MD LAB BLOOD ORDERABLES Nadia l Result * (ABNORMAL) CBC and differential (11/01/2025 7:05 AM EST) Only the most recent of4 resultswithin the time period is included. Hemoglobin 7.7(A) 13.5 - 17.5 g/dL Hematocrit 22.9(A) 41 - 53 % RDW 18.3(A) 11.5 - 14.5 % Lymphocytes Absolute 0.5 / L Monocytes Absolute 0.6 / L Eosinophils Absolute 0.3 / L Basophils Absolute 0.1 / L Neutrophils Relative 83.8(A) 46 - 78 % Lymphocytes Relative 4.1(A) 18 - 52 % Monocytes Relative 4.8 3 - 10 % Eosinophils Relative 2.2 0 - 6 % Basophils Relative 0.5 0 - 3 % Neutrophils Absolute 11.1 / L MCH 31.7 26.0 - 34.0 pg MCHC 33.6 30 - 37 g/dL MCV 94.2 82.0 - 108.0 fL Platelets 122 K/ L RBC 2.43(A) 4.50 - 5.90 10^6/ L WBC 13.2 10^3/mL Blood Historical Provider LAB BLOOD ORDERABLES Nadia l Result * (ABNORMAL) Renal Function Panel w/o EGFR (11/01/2025 7:05 AM EST) Only the most recent of4 resultswithin the time period is included. BUN 24 CO2 27(A) 13 - 22 mmol/L Creatinine 0.90 Potassium 4.3 Sodium 132 Chloride 104 Phosphorus 3.1 2.5 - 4.9 mg/dL Calcium 8.1 EGFR 85 mg/dL Albumin 2.9(A) 3.5 - 5.0 g/dL Blood Historical Provider MD LAB BLOOD ORDERABLES Nadia l Result * (ABNORMAL) Renal Function Panel w/EGFR (10/30/2025 8:07 AM EST) Only the most recent of12 resultswithin the time period is included. Sodium 138 133 - 146 mmol/L 10/30/2025 10:12 AM [facility] Potassium 4.5 3.5 - 5.3 mmol/L 10/30/2025 10:12 AM [facility] Chloride 101 98 - 110 mmol/L 10/30/2025 10:12 AM [facility] CO2 29 21 - 33 mmol/L 10/30/2025 10:12 AM [facility] Comment:High lactate dehydro genase concentrations in patient samples may cause falsely increased bicarbonate results. If markedly elevated LDH is observed or suspected, please assess results in conjunction with patient`s clinical presentation. In cases of discrepant results, consider evaluating CO2 in with a blood gas order. Anion Gap 8 3 - 16 mmol/L 10/30/2025 10:12 AM [facility] BUN 17 7 - 25 mg/dL 10/30/2025 10:12 AM [facility] Creatinine 0.90 0.60 - 1.30 mg/dL 10/30/2025 10:12 AM [facility] Glucose 124(H) 70 - 100 mg/dL 10/30/2025 10:12 AM [facility] Calcium 7.9(L) 8.6 - 10.3 mg/dL 10/30/2025 10:12 AM [facility] Phosphorus 3.9 2.1 - 4.7 mg/dL 10/30/2025 10:12 AM [facility] Albumin 2.9(L) 3.5 - 5.7 g/dL 10/30/2025 10:12 AM EST [facility]ALTH LAB Osmolality, Calculated 289 278 - 305 mOsm/kg 10/30/2025 10:12 AM EST [facility] EGFR >90 10/30/2025 10:12 AM EST [facility] Comment: As of 2022, the [...] AM EST 10/30/2025 9:12 AM EST Narrative [facility] - 10/30/2025 10:12 AM EST Standing liver transplant labs. Please fax results to [phone]. Call critical results to [phone]. us Felice Nugent III, MD LAB BLOOD ORDERABLE S Final Result [facility] [address] [place] [address], [facility] * Tacrolimus level (10/30/2025 8:07 AM EST) Only the most recent of6 resultswithin the time period is included. Tacrolimus (LC-MS) 13.0 3.0 - 15.0 ng/mL 10/30/2025 3:02 PM EST [facility] Comment:Performed via liquid chromatography tandem mass spectrometry. Detection limit: 1 ng/mL. Individual target concentrations may vary due to target organ and time after transplant. This test has been developed and its performance characteristics determined by [facility] which is certified under the [...] AM EST 10/30/2025 9:12 AM EST Narrative [facility] - 10/30/2025 3:02 PM EST Standing liver transplant labs. Please fax results to [phone]. Call critical results to [phone]. Felice Nugent III, MD LAB BLOOD ORDERABLE S Final Result Performing Organization Address City/State/[facility] Co de Phone Number [facility] [address] * (ABNORMAL) Differential (10/30/2025 8:07 AM EST) Only the most recent of2 resultswithin the time period is included. Neutrophils Relative 79.6 40.0 - 80.0 % 10/30/2025 9:26 AM EST [facility] Lymphocytes Relative 6.3(L) 15.0 - 45.0 % 10/30/2025 9:26 AM EST [facility] Monocytes Relative 9.8 0.0 - 12.0 % 10/30/2025 9:26 AM EST [facility] Eosinophils Relative 3.4 0.0 - 8.0 % 10/30/2025 9:26 AM EST [facility] Basophils Relative 0.9 0.0 - 1.0 % 10/30/2025 9:26 AM EST [facility] nRBC 0 0 - 0 /100 WBC 10/30/2025 9:26 AM EST [facility] Neutrophils Absolute 6,209 1,520 - 8,640 /uL 10/30/2025 9:26 AM EST [facility] Lymphocytes Absolute 491(L) 570 - 4,860 /uL 10/30/2025 9:26 AM EST [facility] Monocytes Absolute 764 0 - 1,296 /uL 10/30/2025 9:26 AM EST [facility] Eosinophils Absolute 265 0 - 864 /uL 10/30/2025 9:26 AM EST [facility] Basophils Absolute 70 0 - 108 /uL 10/30/2025 9:26 AM EST [facility] Whole Blood 10/30/2025 8:07 AM EST 10/30/2025 9:11 AM EST Narrative [facility] - 10/30/2025 9:26 AM EST Standing liver transplant labs. Please fax results to [phone]. Call critical results to [phone]. us Felice Nugent III, MD LAB BLOOD ORDERABLE S Final Result [facility] [address], [facility] * (ABNORMAL) CBC (10/30/2025 8:07 AM EST) Only the most recent of16 resultswithin the time period is included. WBC 7.8 3.8 - 10.8 10E3/uL 10/30/2025 9:26 AM EST [facility] RBC 2.67(L) 4.20 - 5.80 10E6/uL 10/30/2025 9:26 AM EST [facility] Hemoglobin 10.1(L) 13.2 - 17.1 g/dL 10/30/2025 9:26 AM [facility] Hematocrit 27.2(L) 38.5 - 50.0 % 10/30/2025 9:26 AM [facility] MCV 101.7(H) 80.0 - 100.0 fL 10/30/2025 9:26 AM EST [facility] MCH 37.8(H) 27.0 - 33.0 pg 10/30/2025 9:26 AM EST [facility] MCHC 37.1(H) 32.0 - 36.0 g/dL 10/30/2025 9:26 AM EST [facility] RDW 17.4(H) 11.0 - 15.0 % 10/30/2025 9:26 AM EST [facility] Platelets 159 140 - 400 10E3/uL 10/30/2025 9:26 AM EST [facility] MPV 8.5 7.5 - 11.5 fL 10/30/2025 9:26 AM EST [facility] Whole Blood 10/30/2025 8:07 AM EST 10/30/2025 9:11 AM EST Narrative [facility] - 10/30/2025 9:26 AM EST Standing liver transplant labs. Please fax results to [phone]. Call critical results to [phone]. us Felice Nugent III, MD LAB BLOOD ORDERABLE S Final Result Performing Organization Address [facility] Co de Phone Number [facility] [address] * [facility]ox - HLA Antibody-Detailed Report (10/25/2025 11:31 AM EST) 10/25/2025 11:3 1 AM EST us Felice Nugent III, MD LAB BLOOD ORDERABLE S Final Result Performing Organization Address City/[facility] Co de Phone Number [facility] [address] [place] [address] * US Duplex [id number]-[id number]-Gqbrcla Comp (10/22/2025 10:24 AM EST) Only the [...] EXAM: US ABDOMEN COMPLETE EXAM: US DUPLEX [id number] COMPLETE INDICATION: Post-op liver transplant DATE: 10/22/2025 [...] EXAM: US ABDOMEN COMPLETE EXAM: US DUPLEX [id number] COMPLETE INDICATION: Post-op liver transplant DATE: 10/22/2025 [...] 12:02 PM EST us Jesus Lomeli MD [facility] US ORDERABLES Final Resul t * US [...] EXAM: US ABDOMEN COMPLETE EXAM: US DUPLEX [id number] COMPLETE INDICATION: Post-op liver transplant DATE: 10/22/2025 [...] EXAM: US ABDOMEN COMPLETE EXAM: US DUPLEX [id number] COMPLETE INDICATION: Post-op liver transplant DATE: 10/22/2025 [...] 12:02 PM EST us Jesus Lomeli MD [facility] ORDERABLES Final Resul t * POC Glucose Monitoring Device (10/22/2025 10:23 AM EST) Only the most recent of38 resultswithin the time period is included. POC Glucose Monitoring Device 96 70 - 100 mg/dL 10/22/2025 10:24 AM EST [facility] Blood 10/22/2025 10:2 3 AM EST 10/22/2025 10:23 AM EST us Vani Drew MD POINT OF CARE TEST ORDERABLE S Final Result [facility] [address] * Phosphorus (10/22/2025 5:28 AM EST) Phosphorus 2.3 2.1 - 4.7 mg/dL 10/22/2025 6:20 AM EST [facility] Plasma 10/22/2025 5:28 AM EST 10/22/2025 5:42 AM EST Aspen Parr MD LAB BLOOD ORDERABLES Final Resul t Performing Organization Address City/[facility]/ZIP Co de Phone Number [facility] [address] [facility]. [address] * Magnesium (10/22/2025 5:28 AM EST) Only the most recent of11 resultswithin the time period is included. Magnesium 1.7 1.5 - 2.5 mg/dL 10/22/2025 6:20 AM EST [facility] Plasma 10/22/2025 5:28 AM EST 10/22/2025 5:42 AM EST Aspen Parr MD LAB BLOOD ORDERABLES Final Resul t Performing Organization Address City/[facility] Co de Phone Number [facility] [address] [facility] * (ABNORMAL) Basic metabolic panel (10/22/2025 5:28 AM EST) Only the most recent of2 resultswithin the time period is included. Sodium 138 133 - 146 mmol/L 10/22/2025 6:20 AM EST [facility] Potassium 3.2(L) 3.5 - 5.3 mmol/L 10/22/2025 6:20 AM EST [facility] Chloride 107 98 - 110 mmol/L 10/22/2025 6:20 AM EST [facility] CO2 25 21 - 33 mmol/L 10/22/2025 6:20 AM EST [facility] Comment:High lactate dehydro genase concentrations in patient samples may cause falsely increased bicarbonate results. If markedly elevated LDH is observed or suspected, please assess results in conjunction with patient`s clinical presentation. In cases of discrepant results, consider evaluating CO2 in with a blood gas order. Anion Gap 6 3 - 16 mmol/L 10/22/2025 6:20 AM EST [facility] BUN 25 7 - 25 mg/dL 10/22/2025 6:20 AM EST [facility] Creatinine 0.81 0.60 - 1.30 mg/dL 10/22/2025 6:20 AM EST [facility] Glucose 100 70 - 100 mg/dL 10/22/2025 6:20 AM EST [facility] Calcium 6.8(L) 8.6 - 10.3 mg/dL 10/22/2025 6:20 AM EST [facility] Osmolality, Calculated 290 278 - 305 mOsm/kg 10/22/2025 6:20 AM EST [facility] EGFR >90 10/22/2025 6:20 AM EST [facility] Comment: As of 2022, the [...] MD LAB BLOOD ORDERABLES Final Resul t [facility] [address] * (ABNORMAL) Protime-INR (10/19/2025 11:03 PM EST) Only the most recent of14 resultswithin the time period is included. Pathologist [facility] Protime 18.2(H) 12.1 - 15.1 seconds 10/19/2025 11:27 PM EST [facility] INR 1.4(H) 0.9 - 1.1 10/19/2025 11:27 PM EST [facility] Comment: RECOMMENDED THERAPEUTIC RANGES USING INR : Stable oral anticoagulant therapy: 2.0 - 3.0 Mechanical prosthetic heart valve: 2.5 - 3.5 Recurrent acute myocardial infarction: 2.5 - 3.5 Plasma 10/19/2025 11:0 3 PM EST 10/19/2025 11:07 PM EST Aspen Parr MD LAB BLOOD ORDERABLES Final Resul t Performing Organization Address City/[facility]/ZIP Co de Phone Number [facility] [address] [facility] * Lactic Acid (10/18/2025 10:20 PM EST) Only the most recent of5 resultswithin the time period is included. [facility] Lactate 0.8 0.5 - 2.2 mmol/L 10/18/2025 11:03 PM EST [facility] Plasma 10/18/2025 10:2 0 PM EST 10/18/2025 10:26 PM EST Aspen Parr MD LAB BLOOD ORDERABLES Final Resul t [facility] [address] [facility] * Prepare Fresh Frozen Plasma (10/18/2025 11:58 AM EST) Only the most recent of2 resultswithin the time period is included. Pathologist [facility] Product Code E5605S49 [facility] Unit Number [id number] [facility] Dispense Status Released from Crossmatch_RE HCLL Blood Expiration Date [facility] Coding System [id number] [facility] Product Code U0603W30 [facility] Unit Number [id number] [facility] Dispense Status Released from Crossmatch_RE HCLL Blood Expiration Date [facility] Coding System REIY964 [facility] Product Code A5838T42 [facility] Unit Number [id number] [facility] Dispense Status Released from Crossmatch_RE HCLL Blood Expiration Date [facility] Coding System GQFA480 [facility] Product Code H7336Y30 [facility] Unit Number [id number] [facility] Dispense Status Released from Crossmatch_RE HCLL Blood Expiration Date [facility] Coding System QPJE927 [facility] Product Code K2758X39 [facility] Unit Number [id number] [facility] Dispense Status Released from Crossmatch_RE HCLL Blood Expiration Date [facility] Coding System YPKI032 HCLL us Attending Provider Unknown BLOOD BANK [...] below level of diaphragms and outside the [id number]. Right internal jugular approach pulmonary artery catheter [...] courses below level of diaphragms andoutside the eawoj-ta-zeat. Right internal jugular approach pulmonaryartery catheter projects [...] the time period is included. Product Code A4434Q33 [facility] Unit Number [id number] [facility] Dispense Status Presumed Transfused_PT [facility] Blood Expiration Date [facility] C[facility] [id number] [facility] Product Oskar Torres MD BLOOD BANK PRODUCT ORDERABLES Final Result [facility] * Prepare RBC, leukoreduced, 5 Units (10/18/2025 6:16 AM EST) Only the most recent of2 resultswithin the time period is included. Product Code H3010X81 [facility] Unit Number [id number] [facility] Dispense Status Presumed Transfused_PT [facility]LL Blood Expiration Date [facility] Coding System KFQA715 [facility] Product Code X5216E59 [facility] Unit Number [id number] [facility] Dispense Status Presumed Transfused_PT HCLL Blood Expiration Date [facility] Coding System NLOO389 [facility] Product Code R4653L26 [facility] Unit Number [id number] [facility] Dispense Status Presumed Transfused_PT [facility]LL Blood Expiration Date [facility] Coding System MWEC756 [facility] Product Code C0861B80 [facility] Unit Number [id number] [facility] Dispense Status Released from Crossmatch_RE HCLL Blood Expiration Date [facility] Coding System TMRW097 [facility] Product Code K2080J83 [facility] Unit Number [id number] [facility] Dispense Status Presumed Transfused_PT HCLL Blood Expiration Date [facility] Coding System VMPO555 [facility] Blood Bank Product Kassi INTERIANO BLOOD BANK PRODUCT ORDERABLES Final Result Performing Organization Address City/[facility]/ZIP Co de Phone Number [facility] * Prepare Cryoprecipitate (10/18/2025 6:15 AM EST) Only the most recent of5 resultswithin the time period is included. Product Code T1493W42 [facility] Unit Number [id number] [facility] Dispense Status Presumed Transfused_PT [facility]LL Blood Expiration Date [facility] Coding System [id number] [facility] Attending Provider Unknown BLOOD BANK PRODUCT OR DERABLES Final Result [facility] * (ABNORMAL) Blood gas, arterial (10/18/2025 5:19 AM EST) Only the most recent of2 resultswithin the time period is included. O2 Sat, Arterial 97 10/18/2025 5:28 AM EST [facility] FIO2 40 10/18/2025 5:28 AM EST [facility] pH, Arterial 7.34(L) 7.35 - 7.45 10/18/2025 5:28 AM EST [facility] pCO2, Arterial 48(H) 35 - 45 mm Hg 10/18/2025 5:28 AM EST [facility] pO2, Arterial 84 80 - 100 mm Hg 10/18/2025 5:28 AM EST [facility] HCO3, Arterial 25 22 - 26 mmol/L 10/18/2025 5:28 AM EST [facility] CO2 Content,Arteri al 27 23 - 27 mmol/L 10/18/2025 5:28 AM EST [facility] Base Excess, Arterial -0.2 -2.0 - 3.0 mmol/L 10/18/2025 5:28 AM EST [facility] %HBO2, Arterial 94.1(L) 95.0 - 98.0 % 10/18/2025 5:28 AM EST [facility] Carboxyhemoglo bin, Arterial 2.5 % 10/18/2025 5:28 AM EST [facility] Comment: CARBOXYHEMOGLOBIN (CO) REFERENCE RANGES: Non-Smokers: <2 % Smokers: <8 % TOXIC: >20 % Methemoglobin, Arterial 0.5 0.0 - 1.5 % 10/18/2025 5:28 AM EST [facility] Blood, Arterial 10/18/2025 5 :19 AM EST 10/18/2025 5:25 AM EST us Vani Drew MD LAB BLOOD ORDERABLES Final R esult [facility] [address] [address], [facility] * XR Portable Feeding Tube [...] of2 resultswithin the time period is included. Citrated Kaolin Reaction Time (TEGHEPARINASE) 12.7(H) 4.6 - 9.1 minutes 10/18/2025 12:03 AM EST [facility] Citrated Rapid Teg Maximum Amplitude (TEGHEPARINASE) 47.8(L) 52.0 - 70.0 mm 10/18/2025 12:03 AM EST [facility] Citrated Functional Fibrinogen Maximum Amplitude (TEGHEPARINASE) 16.8 15.0 - 32.0 mm 10/18/2025 12:03 AM EST [facility] Citrated Kaolin W/Heparinase Reaction Time (TEGHEPARINASE) 11.0(H) 4.3 - 8.3 minutes 10/18/2025 12:03 AM EST [facility] Citrated Kaolin K-Time (TEGHEPARINASE) 4.9(H) 0.8 - 2.1 minutes 10/18/2025 12:03 AM EST [facility] Citrated Kaolin Angle (TEGHEPARINASE) 40.0(L) 63.0 - 78.0 degrees 10/18/2025 12:03 AM EST [facility] Citrated Kaolin Maximum Amplitude (TEGHEPARINASE) 45.2(L) 52.0 - 69.0 mm 10/18/2025 12:03 AM EST [facility] Citrated Functional Fibrinogen- Fibrinogen Level (TEGHEPARINASE) 306.6 278.0 - 581.0 mg/dL 10/18/2025 12:03 AM EST [facility] Whole Blood (Citrate) 10/17/2025 10:50 PM EST 10/17/2025 10:55 PM EST us Aspen Parr MD LAB BLOOD ORDERABLES Final Resul t [facility] [address] [place] [address], [facility] * Calcium Free, Serum (10/17/2025 10:50 PM EST) Free Calcium, Ser 4.76 4.40 - 5.40 mg/dL 10/17/2025 11:15 PM EST [facility] Comment:Free calcium levels vary inversely with pH by approximately 5% for each 0.1 unit of pH change. Assay results have been normalized to pH = 7.40. Serum 10/17/2025 10:5 0 PM EST 10/17/2025 10:55 PM EST Narrative [facility] - 10/17/2025 11:15 PM EST This test has been developed and its performance characteristics determined by [facility] which is certified under the Clinical Laboratory [...] BLOOD ORDERABLES Final Result Performing Organization Address City/[facility]/ZIP Co de Phone Number [address] * Fibrinogen (10/17/2025 10:50 PM EST) Only the most recent of6 resultswithin the time period is included. [facility] Fibrinogen 253 218 - 406 mg/dL 10/17/2025 11:06 PM EST [facility] Plasma 10/17/2025 10:5 0 PM EST 10/17/2025 10:55 PM EST Aspen Parr MD LAB BLOOD ORDERABLES Final Resul t [facility] [address] [place] [address] * POC Lactate (10/17/2025 9:25 PM EST) Only the most recent of8 resultswithin the time period is included. [facility] POC Lactate 1.50 0.50 - 2.20 mmol/L 10/17/2025 9:51 PM EST [facility] Blood, Arterial 10/17/2025 9 :25 PM EST 10/17/2025 9:51 PM EST Vani Drew MD POINT OF CARE TEST ORDERABLE S Final Result Performing Organization Address City/[facility]/ZIP Co de Phone Number [facility] [address] * POC TCO2 (10/17/2025 9:25 PM EST) Only the most recent of8 resultswithin the time period is included. POC TCO2, Arterial 23 23 - 27 mmol/L 10/17/2025 9:51 PM EST [facility] Blood, Arterial 10/17/2025 9 :25 PM EST 10/17/2025 9:51 PM EST Vani Drew MD POINT OF CARE TEST ORDERABLE S Final Result Performing Organization Address City/[facility] Co de Phone Number [facility] [address] * POC Sodium (10/17/2025 9:25 PM EST) Only the most recent of8 resultswithin the time period is included. POC Sodium 142 136 - 146 mmol/L 10/17/2025 9:51 PM EST [facility] Blood, Arterial 10/17/2025 9 :25 PM EST 10/17/2025 9:51 PM EST Vani Drew MD POINT OF CARE TEST ORDERABLE S Final Result Performing Organization Address City/[facility]/ZIP Co de Phone Number [facility] [address] [facility] * POC Potassium (10/17/2025 9:25 PM EST) Only the most recent of8 resultswithin the time period is included. POC Potassium 3.7 3.5 - 5.3 mmol/L 10/17/2025 9:51 PM EST [facility] Blood, Arterial 10/17/2025 9 :25 PM EST 10/17/2025 9:51 PM EST Vani Drew MD POINT OF CARE TEST ORDERABLE S Final Result [facility] [address] [facility] * (ABNORMAL) POC PO2 (10/17/2025 9:25 PM EST) Only the most recent of8 resultswithin the time period is included. POC pO2, Arterial 161(H) 80 - 100 mm Hg 10/17/2025 9:51 PM EST [facility] Blood, Arterial 10/17/2025 9 :25 PM EST 10/17/2025 9:51 PM EST Vani Drew MD POINT OF CARE TEST ORDERABLE S Final Result Performing Organization Address City/[facility]/ZIP Co de Phone Number [facility] [address] [facility] * POC PCO2 (10/17/2025 9:25 PM EST) Only the most recent of8 resultswithin the time period is included. POC pCO2, Arterial 38 35 - 45 mm Hg 10/17/2025 9:51 PM EST [facility] Blood, Arterial 10/17/2025 9 :25 PM EST 10/17/2025 9:51 PM EST Vani Drew MD POINT OF CARE TEST ORDERABLE S Final Result [facility] [address] [facility] * (ABNORMAL) POC O2 SAT (10/17/2025 9:25 PM EST) Only the most recent of8 resultswithin the time period is included. POC O2 Saturation, Arterial 99(H) 95 - 98 % 10/17/2025 9:51 PM EST [facility] Blood, Arterial 10/17/2025 9 :25 PM EST 10/17/2025 9:51 PM EST Vani Drew MD POINT OF CARE TEST ORDERABLE S Final Result Performing Organization Address City/[facility] Co de Phone Number [facility] [address] [place] [address]. [address] * POC HCO3 (10/17/2025 9:25 PM EST) Only the most recent of8 resultswithin the time period is included. POC HCO3, Arterial 22 22 - 26 mmol/L 10/17/2025 9:51 PM EST [facility] Blood, Arterial 10/17/2025 9 :25 PM EST 10/17/2025 9:51 PM EST Vani Drew MD POINT OF CARE TEST ORDERABLE S Final Result Performing Organization Address [facility] Co de Phone Number [facility] [address] [facility] * (ABNORMAL) POC Chloride (10/17/2025 9:25 PM EST) Only the most recent of8 resultswithin the time period is included. POC Chloride 111(H) 98 - 110 mmol/L 10/17/2025 9:51 PM EST [facility] Blood, Arterial 10/17/2025 9 :25 PM EST 10/17/2025 9:51 PM EST Vani Drew MD POINT OF CARE TEST ORDERABLE S Final Result Performing Organization Address [facility] Co de Phone Number [facility] [address] [place] [address]. [address] * (ABNORMAL) POC Base Excess (10/17/2025 9:25 PM EST) Only the most recent of8 resultswithin the time period is included. POC Base Excess, Arterial -3(L) -2 - 3 mmol/L 10/17/2025 9:51 PM EST [facility] Blood, Arterial 10/17/2025 9 :25 PM EST 10/17/2025 9:51 PM EST Vani Drew MD POINT OF CARE TEST ORDERABLE S Final Result [facility] [address] [facility]. [address] * POC Anion Gap (10/17/2025 9:25 PM EST) Only the most recent of8 resultswithin the time period is included. POC Anion Gap, Arterial 9 3 - 16 mmol/L 10/17/2025 9:51 PM EST [facility] Blood, Arterial 10/17/2025 9 :25 PM EST 10/17/2025 9:51 PM EST Vani Drew MD POINT OF CARE TEST ORDERABLE S Final Result Performing Organization Address [facility] Co de Phone Number [facility] [address] [facility]. [address] * POC Sample Type (10/17/2025 9:25 PM EST) Only the most recent of8 resultswithin the time period is included. POC Sample Type Arterial 10/17/2025 9:51 PM EST [facility] Blood, Arterial 10/17/2025 9 :25 PM EST 10/17/2025 9:51 PM EST Vani Drew MD POINT OF CARE TEST ORDERABLE S Final Result Performing Organization Address City/[facility]/ZIP Co de Phone Number [facility] [address] [facility]. [address] * POC pH (10/17/2025 9:25 PM EST) Only the most recent of8 resultswithin the time period is included. POC pH, Arterial 7.37 7.35 - 7.45 10/17/2025 9:51 PM EST [facility] Blood, Arterial 10/17/2025 9 :25 PM EST 10/17/2025 9:51 PM EST Vani Drew MD POINT OF CARE TEST ORDERABLE S Final Result [facility] [address] [facility]. [address] * (ABNORMAL) POC hematocrit (10/17/2025 9:25 PM EST) Only the most recent of8 resultswithin the time period is included. POC Hematocrit 26.0(L) 40 - 52 % 10/17/2025 9:51 PM EST [facility] Blood, Arterial 10/17/2025 9 :25 PM EST 10/17/2025 9:51 PM EST Vani Drew MD POINT OF CARE TEST ORDERABLE S Final Result Performing Organization Address [facility] Co de Phone Number [facility] [address] [facility] * POC Ionized Calcium (10/17/2025 9:25 PM EST) Only the most recent of8 resultswithin the time period is included. POC Ionized Calcium 4.90 4.50 - 5.30 mg/dL 10/17/2025 9:51 PM EST [facility] Blood, Arterial 10/17/2025 9 :25 PM EST 10/17/2025 9:51 PM EST Vani Drew MD POINT OF CARE TEST ORDERABLE S Final Result Performing Organization Address City/[facility]/ZIP Co de Phone Number [facility] [address] [facility]. [address] * (ABNORMAL) POC Glucose (10/17/2025 9:25 PM EST) Only the most recent of8 resultswithin the time period is included. POC Glucose, Arterial 227(H) 70 - 100 mg/dL 10/17/2025 9:51 PM EST [facility] Blood, Arterial 10/17/2025 9 :25 PM EST 10/17/2025 9:51 PM EST Vani Drew MD POINT OF CARE TEST ORDERABLE S Final Result Performing Organization Address City/[facility] Co de Phone Number [facility] [address] [place] [address]. [address] * (ABNORMAL) POC Hemoglobin (10/17/2025 9:25 PM EST) Only the most recent of8 resultswithin the time period is included. [facility] POC Hemoglobin 9.0(L) 14.0 - 18.0 g/dL 10/17/2025 9:51 PM EST [facility] Blood, Arterial 10/17/2025 9 :25 PM EST 10/17/2025 9:51 PM EST Result [facility] Vani Drew MD POINT OF CARE TEST ORDERABLE S Final Result Performing Organization Address City/[facility] Co de Phone Number [facility] [address] [place] [address]. [address] * (ABNORMAL) POC INR (10/17/2025 9:24 PM EST) Only the most recent of8 resultswithin the time period is included. Pathologist [facility] Prothrombin Time INR, POC 2.3(H) 0.8 - 1.4 10/18/2025 12:08 AM EST [facility] Comment: Test results may vary [...] OF CARE TEST ORDERABLE S Final Result [facility] [address] [place] [address], [facility] * Transfuse Fresh Frozen Plasma [...] of4 resultswithin the time period is included. [facility] Citrated Kaolin Reaction Time (TEGECMOLIVER) 9.7(H) 4.6 - 9.1 minutes 10/17/2025 10:13 PM EST [facility] Citrated Kaolin W/Heparinase Reaction Time (TEGECMOLIVER) 3.4(L) 4.3 - 8.3 minutes 10/17/2025 10:13 PM EST [facility] Citrated Kaolin Maximum Amplitude (TEGECMOLIVER) 45.4(L) 52.0 - 69.0 mm 10/17/2025 10:13 PM EST [facility] Citrated Functional Fibrinogen W/Heparinase Maximum Amplitude(TEGEC MOLIVER) 18.0 15.0 - 34.0 mm 10/17/2025 10:13 PM EST [facility] Citrated Rapid Teg W/Heparinase Maximum Amplitude (TEGECMOLIVER) 40.5(L) 53.0 - 69.0 mm 10/17/2025 10:13 PM EST [facility] Citrated Kaolin w/Heparinase Percent Lysis (TEGECMOLIVER) 0.0 0.0 - 3.2 % 10/17/2025 10:13 PM EST [facility] Whole Blood (Citrate) 10/17/2025 8:31 PM EST 10/17/2025 8:40 PM EST Oskar Torres MD LAB BLOOD ORDERABLES Final Re sult [facility] [address] [place] [address], [facility] * Transfuse RBC (10/17/2025 5:34 PM EST) Only the most recent of5 resultswithin the time period is included. Slade Munoz MD NURSING TREATMENT ORDERABLES - B LOOD ADMIN Final Result * Surgical Pathology Exam (10/17/2025 5:20 PM EST) Tissue LIVER STRUCTURE / Unknown 10/17/2025 5:20 PM EST Narrative [facility] - 10/17/2025 12:00 AM EST CASE: [id number] PATIENT: DAVID SERRANO Clinical History: transplant liver Pre-Operative Diagnosis: end stage liver disease Post-Operative Diagnosis: same Specimen(s) Submitted: A. [place] liver and gallbladder; B. Right lobe post perfusion liver bx; C. Left lobe post perfusion liver bx CPT Code(s): 18086 X 2; 68697 X 1; 65128 X 7 Additional Information: FINAL DIAGNOSIS: Liver and gall bladder, [place], total hepatectomy with cholecystectomy: Liver: -Cirrhosis, mild [...] with the patient's name David Serrano and [place] liver and gallbladder is a 782 gram, [...] no discrete masses or lesions are identified. [employer] sections are submitted in cassettes [id number] as follows: A1: [employer] gallbladder. A2: Hilar margins, en face. A3-A5: [employer] right lobe. A6-A8: [employer] left lobe with liver written on the side of the cassette in A8. (LAISHA Miranda/) B. Received in formalin, labeled with the patient's name David Serrano and right lobe post perfusion liver biopsy is a 1.6 cm in length x 0.1 cm in diameter red-brown tissue core, which is entirely submitted between blue biopsy sponges in cassette [id number]. (LAISHA Miranda/) C. Received in formalin, labeled with the patient's name David Serrano and left lobe post perfusion liver biopsy is a 1.3 cm in length x 0.1 cm in diameter red-brown fragmented tissue core, which is entirely submitted between blue biopsy sponges in cassette [id number]. (LAISHA Miranda/) Microscopic Description: Sixteen HE [...] Pathologist signing this report is located at [facility], [address] [place] [address], [place], [place], [facility], , CLIA ID: [id number] Jesus Lomeli MD PATHOLOGY/CYTOLOGY ORDERABLES Final Result Performing Organization Address [facility] de Phone Number [facility] * (ABNORMAL) APTT, No Anticoagulant (10/17/2025 4:56 PM EST) Only the most recent of2 resultswithin the time period is included. aPTT 55.7(H) 25.5 - 35.0 seconds 10/17/2025 5:32 PM EST [facility] Plasma 10/17/2025 4:56 PM EST 10/17/2025 5:06 PM EST Slade Munoz MD LAB BLOOD ORDERABLES Final Resul t Performing Organization Address City/[facility]/ZIP Co de Phone Number [facility] [address] [place] [address] * Routine Culture plus Stain (Surgical Swab) (10/17/2025 2:50 PM EST) Gram Stain Result Rare Polymorphonuclear Leukocytes Seen [facility] Gram Stain Result No Organisms Seen; [facility] Culture Result No Growth After 3 Days [facility] Surgical Swab PERITONEAL FLUID / Unknown 10/17/2025 2:50 PM EST Comment:1. Ascites-anaerobic , aerobic, and fungal Narrative [facility] - 10/20/2025 11:09 AM EST 1. Ascites-anaerobic, aerobic, and fungal 1. Ascites-anaerobic, aerobic, and fungal Vani Drew MD MICROBIOLOGY - GENERAL ORDER MARYA Final Result [facility] [address] [place] [address], [facility] * Anaerobic culture (Surgical Swab) (10/17/2025 2:50 PM EST) Culture Result No Anaerobes Isolated in 5 Days [facility] Surgical Swab PERITONEAL FLUID / Unknown 10/17/2025 2:50 PM EST Comment:1. Ascites-anaerobic , aerobic, and fungal Narrative [facility] - 10/22/2025 11:32 AM EST 1. Ascites-anaerobic, aerobic, and fungal 1. Ascites-anaerobic, aerobic, and fungal Vani Drew MD MICROBIOLOGY - GENERAL ORDER MARYA Final Result [facility] [address] * CENTRAL LINE SINGLE LUMEN PERFORMABLE, HC [...] post op PA catheter complications: None Result [facility] Slade Munoz MD IV THERAPY ORDERABLES Final [...] to Genotyp (10/17/2025 10:19 AM EST) Pathologist [facility] International Units Not Detected IU/mL 10/19/2025 2:12 PM EST [facility] Comment:Test methodology for HCV RNA quantification is an FDA-approved nucleic acid amplification assay. The Lower Limit of Quantitation (LLOQ) is 15 IU/mL. The linear range of the assay is 15-100,000,000 IU/mL. The Limit of Detection (LoD) is 12.0 IU/mL for EDTA plasma. The reference range is Not Detected. IU log10 See Note log 10 IU/mL 10/19/2025 2:12 PM EST [facility] Comment:HCV RNA not detected . Plasma 10/17/2025 10:1 9 AM EST 10/17/2025 11:09 AM EST Kassi INTERIANO LAB BLOOD ORDERABLES Final Re sult Performing Organization Address City/[facility]/ZIP Co de Phone Number [facility] [address] [place] [address] * Hepatitis A Antibody Total (10/17/2025 10:18 AM EST) [facility] Anti-HAV Total (IgG + IgM) Reactive 10/17/2025 12:22 PM EST [facility] Serum 10/17/2025 10:1 8 AM EST 10/17/2025 10:46 AM EST Narrative [facility] - 10/17/2025 12:22 PM EST HAV antibodies detected Kassi INTERIANO LAB BLOOD ORDERABLES Final Re sult [facility] [address] * (ABNORMAL) Venous Blood Gas, Line/Syringe, STAT (10/17/2025 10:18 AM EST) [facility] PH-Line Draw 7.37 7.32 - 7.42 10/17/2025 10:27 AM EST [facility] PCO2-Line Draw 46 41 - 51 mm Hg 10/17/2025 10:27 AM EST [facility] PO2-Line Draw 29 25 - 40 mm Hg 10/17/2025 10:27 AM EST [facility] HCO3-Line Draw 24 24 - 28 mmol/L 10/17/2025 10:27 AM EST [facility] CO2 Content-Line Draw 28 25 - 29 mmol/L 10/17/2025 10:27 AM EST [facility] Base Excess-Line Draw 0.9 -2.0 - 3.0 mmol/L 10/17/2025 10:27 AM EST [facility] %HBO2-Line Draw 38.5(L) 40.0 - 70.0 % 10/17/2025 10:27 AM [facility] Carboxyhgb-Rebecca e Draw 1.4 0.0 - 2.0 % 10/17/2025 10:27 AM EST [facility] Comment: CARBOXYHEMOGLOBIN (CO) REFERENCE RANGES: Non-Smokers: <2 % Smokers: <8 % TOXIC: >20 % Methemoglobin- Line Draw 0.6 0.0 - 1.5 % 10/17/2025 10:27 AM EST [facility] Blood, Venous 10/17/2025 10: 18 AM EST 10/17/2025 10:24 AM EST Kassi INTERIANO LAB BLOOD ORDERABLES Final Re sult [facility] [address] * CMV IgG Antibody (10/17/2025 10:18 AM EST) CMV IgG Negative Negative 10/17/2025 12:16 PM EST [facility] CMV IGG NUM <0.20 0.00 - 0.59 U/mL 10/17/2025 12:16 PM EST [facility] Serum 10/17/2025 10:1 8 AM EST 10/17/2025 10:46 AM EST Kass[facility] INTERIANO LAB BLOOD ORDERABLES Final Re sult Performing Organization Address City/[facility]/ZIP Co de Phone Number [facility] [address] [facility]. [address] * Hepatitis B Core Antibody (10/17/2025 10:18 AM EST) Pathologist [facility] Hep B Core Total Ab Nonreactive Nonreactive 10/17/2025 12:17 PM EST [facility] Comment:Health Department no tified in accordance with reportable infectious disease guidelines. Serum 10/17/2025 10:1 8 AM EST 10/17/2025 10:46 AM EST Narrative [facility] - 10/17/2025 12:17 PM EST A nonreactive final interpretation indicates that anti-HBc antibodies were not detected in the sample; it is possible that the individual is not infected with HBV. Kassi ITNERIANO LAB BLOOD ORDERABLES Final Re sult Performing Organization Address [facility] Co de Phone Number [facility] [address] [facility]. [address] * Hepatitis C Antibody (10/17/2025 10:18 AM EST) Pathologist [facility] HCV Ab Nonreactive Nonreactive 10/17/2025 12:25 PM EST [facility] Comment:Health Department no tified in accordance with reportable infectious disease guidelines. Serum 10/17/2025 10:1 8 AM EST 10/17/2025 10:46 AM EST Narrative [facility] - 10/17/2025 12:25 PM EST Antibodies to HCV not detected; does not exclude the possibility of exposure to HCV. [facility] BLOOD ORDERABLES Final Re sult Performing Organization Address City/[facility] Co de Phone Number [facility] [address] [facility]. [address] * (ABNORMAL) Jose-Beard Virus VCA IgG Ab (10/17/2025 10:18 AM EST) Pathologist [facility] EBV VCA IgG Positive( A) Negative 10/17/2025 12:18 PM EST [facility] Comment:Presence of detectab le VCA IgG antibodies. A positive result indicates current or past exposure to Jose-Beard virus. EBV IGG NUM >750.00(H ) 0.00 - 17.99 U/mL 10/17/2025 12:18 PM EST [facility] Serum 10/17/2025 10:1 8 AM EST 10/17/2025 10:46 AM EST Kassi INTERIANO LAB BLOOD ORDERABLES Final Re sult Performing Organization Address City/[facility]/ZIP Co de Phone Number [facility] [address] [facility]. [address] * ABO/Rh (10/17/2025 10:18 AM EST) Only the most recent of2 resultswithin the time period is included. ABO Grouping A 10/17/2025 10:53 AM EST [facility] Rh Type Positive 10/17/2025 10:53 AM EST [facility] Blood 10/17/2025 10:1 8 AM EST 10/17/2025 10:26 AM EST Kassi INTERIANO BLOOD BANK TEST ORDERABLES Fi nal Result Performing Organization Address City/[facility] Co de Phone Number [facility] [address] [facility]. [address] * Vitamin D 25 Hydroxy (10/17/2025 10:18 AM EST) Vit D, 25-Hydroxy 39.3 30.0 - 100.0 ng/mL 10/17/2025 12:15 PM EST [facility] Comment: Vitamin D deficiency has been defined by the [place] of [employer] (IOM) and an Endocrine Society [...] ORDERABLES Final Re sult Performing Organization Address City/[facility] Co de Phone Number [facility] [address] * Toxoplasma gondii Antibody, IgG (10/17/2025 10:18 AM EST) Only the most recent of2 resultswithin the time period is included. Toxoplasma Gondii IgG <3.0 0.0 - 7.1 IU/mL 10/18/2025 4:54 AM EST [facility] Comment: Negative <7.2 Equivocal 7.2 - 8.7 Positive >8.7 Serum 10/17/2025 10:1 8 AM EST 10/18/2025 5:06 AM EST Narrative [facility] - 10/18/2025 5:06 AM EST PERFORMED AT: [facility] [address] [id number] ASSISTANT PROJECT MANAGER: Mateo Miller, PhD PHONE: [phone] [facility] INTER[facility] LAB BLOOD ORDERABLES Final Re sult Performing Organization Address [facility] Co de Phone Number [facility] [address] [place] [address]. [address] * HIV 1+2 Antibody/Antigen with Reflex (10/17/2025 10:18 AM EST) HIV 1+2 AB/AGN Nonreactive Nonreactive 10/17/2025 12:16 PM EST [facility] Serum 10/17/2025 10:1 8 AM EST 10/17/2025 10:46 AM EST Narrative [facility] - 10/17/2025 12:16 PM EST \HIVRNR Kassi INTERIANO LAB BLOOD ORDERABLES Final Re sult [facility] [address] * (ABNORMAL) Hepatitis B Surface Antibody, Quantitati (10/17/2025 10:18 AM EST) Hep B S Ab Reactive( A) Nonreactive 10/17/2025 12:29 PM EST [facility] HBSAB NUMBER 260.00(H) 0.00 - 7.99 mIU/mL 10/17/2025 12:29 PM EST [facility] Serum 10/17/2025 10:1 8 AM EST 10/17/2025 10:46 AM EST [facility] - 10/17/2025 12:29 PM EST Individual is considered immune to HBV infection. [facility] [place] [facility] BLOOD ORDERABLES Final Re sult Performing Organization Address [facility]/ZIP Co de Phone Number [facility] [address] [facility]. [address] * Hepatitis B surface antigen (10/17/2025 10:18 AM EST) Hep B Surface Ag Nonreactive Nonreactive 10/17/2025 12:21 PM EST [facility] Comment:Health Department no tified in accordance with reportable infectious disease guidelines. Serum 10/17/2025 10:1 8 AM EST 10/17/2025 10:46 AM EST [facility] - 10/17/2025 12:21 PM EST Specimen is considered negative for HBsAg. [facility] [place] [facility] BLOOD ORDERABLES Final Re sult [facility] [address] [facility]. [address] * Antibody Screen (10/17/2025 10:18 AM EST) Antibody Screen Negative 10/17/2025 11:09 AM EST [facility] Blood 10/17/2025 10:1 8 AM EST 10/17/2025 10:26 AM EST Narrative [facility] - 10/17/2025 11:17 AM EST Testing performed by [facility] Kassi INTERIANO BLOOD BANK TEST ORDERABLES Fi nal Result Performing Organization Address City/[facility]/ZIP Co de Phone Number [facility] [address] [facility]. [address] * Hemoglobin A1C (10/17/2025 10:18 AM EST) Only the most recent of2 resultswithin the time period is included. Pathologist [facility] Hemoglobin A1C 4.0 4.0 - 5.6 % 10/17/2025 1:42 PM EST [facility] Comment: Hemoglobin A1c Interpretation Guidelines: [...] INTERIANO LAB BLOOD ORDERABLES Final Re sult [facility] [address] [facility]. [address] * (ABNORMAL) Urinalysis w/Rfl to Microscopic (09/24/2025 2:11 PM EST) Pathologist [facility] Color, UA Yellow Yellow,Straw 09/24/2025 3:25 PM EST [facility] Clarity, UA Cloudy(A) Clear 09/24/2025 3:25 PM EST [facility] Specific Lyndora, UA 1.019 1.005 - 1.035 09/24/2025 3:25 PM EST [facility] pH, UA 6.0 5.0 - 8.0 09/24/2025 3:25 PM EST [facility] Protein, UA 30(A) Negative mg/dL 09/24/2025 3:25 PM EST [facility] Glucose, UA Negative Negative mg/dL 09/24/2025 3:25 PM EST [facility] Ketones, UA Negative Negative mg/dL 09/24/2025 3:25 PM EST [facility] Bilirubin, UA Negative Negative 09/24/2025 3:25 PM EST [facility] Blood, UA Large(A) Negative 09/24/2025 3:25 PM EST [facility] Nitrite, UA Negative Negative 09/24/2025 3:25 PM EST [facility] Urobilinogen, UA <2.0 0.2 - 1.9 mg/dL 09/24/2025 3:25 PM EST [facility] Leukocyte Esterase, UA Large(A) Negative 09/24/2025 3:25 PM EST [facility] RBC, UA 61(H) 0 - 3 /HPF 09/24/2025 3:25 PM EST [facility] WBC, UA >100(H) 0 - 5 /HPF 09/24/2025 3:25 PM EST [facility] Squam Epithel, UA 1 0 - 5 /HPF 09/24/2025 3:25 PM EST [facility] Bacteria, UA Rare(A) None Seen /HPF 09/24/2025 3:25 PM EST [facility] Mucus, UA Present(A) None Seen /HPF 09/24/2025 3:25 PM EST [facility] Urine 09/24/2025 2:11 PM EST 09/24/2025 2:51 PM EST Nigel Reaves MD URINE ORDERABLES Final Result [facility] [address] [place] [address], [facility] * Urine culture (09/24/2025 2:11 PM EST) Culture Result No Growth [facility] Midstream Urine URINE SPECIMEN / Unknown 09/24/2025 2:11 PM EST 09/24/2025 3:25 PM EST Nigel Reaves MD MICROBIOLOGY - GENERAL ORDERABLE S Final Result [facility] [address] [facility]. [address] * (ABNORMAL) MMR(IgG) Panel (Measles, Mumps, Rubella) (09/10/2025 5:03 PM EDT) Mumps IgG Positive 09/10/2025 11:51 PM EDT [facility] MUMPS IGG NUM >300.00(H) 0.0 - 8.9 U/mL 09/10/2025 11:51 PM EDT [facility] Rubella IgG Scr Positive 09/10/2025 11:51 PM EDT [facility] RUB NUM 30.20(H) 0.0 - 0.8 INDEX 09/10/2025 11:51 PM EDT [facility] Rubeola Ab, IgG Positive 09/10/2025 11:50 PM EDT [facility] RUB IGG NUM >300.00(H) 0.00 - 13.40 U/mL 09/10/2025 11:50 PM EDT [facility] Serum 09/10/2025 5:03 PM EDT 09/10/2025 10:26 PM EDT Narrative [facility] - 09/10/2025 11:51 PM EDT [...] MD LAB BLOOD ORDERABLES Final Resu lt [facility] [address] [facility] * Syphilis Screening (Trepia) (09/10/2025 5:03 PM EDT) Treponema Pallidum Negative Negative 09/10/2025 11:55 PM EDT [facility] Comment: No serological evidence of infection with Treponema pallidum (incubating or early primary syphilis cannot be excluded). Serum 09/10/2025 5:03 PM EDT 09/10/2025 10:26 PM EDT us Navi Sims MD LAB BLOOD ORDERABLES Final Resu lt [facility] [address] [facility] * QuantiFERON TB2 Ag (09/10/2025 5:03 PM EDT) QuantiFERON TB2 Ag Value 0.09 09/12/2025 1:19 PM EDT [facility] Plasma 09/10/2025 5:03 PM EDT 09/10/2025 6:29 PM EDT us Navi Sims MD LAB BLOOD ORDERABLES Final Resu lt Performing Organization Address City/[facility]/ZIP Co de Phone Number [facility] [address] [facility]. [address] * QuantiFERON TB1 Ag (09/10/2025 5:03 PM EDT) QuantiFERON TB1 Ag Value 0.08 09/12/2025 1:19 PM EDT [facility] Plasma 09/10/2025 5:03 PM EDT 09/10/2025 6:29 PM EDT us Navi Sims MD LAB BLOOD ORDERABLES Final Resu lt [facility] [address] [facility] * QuantiFERON Nil (09/10/2025 5:03 PM EDT) QuantiFERON Nil 0.02 1:19 PM EDT [facility] Plasma 09/10/2025 5:03 PM EDT 09/10/2025 6:29 PM EDT Navi Sims MD LAB BLOOD ORDERABLES Final Resu lt [facility] [address] [facility]. [address] * QuantiFERON Mitogen (09/10/2025 5:03 PM EDT) QuantiFERON Interpretation Negative Negative 09/12/2025 1:19 PM EDT [facility] Comment:Negative result pilar cates M. tuberculosis infection is NOT likely. Negative results do not preclude tuberculosis infection (especially in immunosuppressed patients). Negative results have a TB antigen minus Nil value less than 0.35 IU/mL. In cases with high suspicion of disease, retesting or additional testing with medical evaluation may be useful. QuantiFERON Mitogen 8.77 09/12 1:19 PM EDT [facility] Plasma 09/10/2025 5:03 PM EDT 09/10/2025 6:29 PM EDT Narrative [facility] - 09/12/2025 1:19 PM EDT [...] BLOOD ORDERABLES Final Resu lt [facility] [address] [facility] * (ABNORMAL) Strongyloides Ab (09/10/2025 5:03 PM EDT) Strongyloides Ab Positive( A) Negative 09/17/2025 2:56 PM EST [facility] Serum 09/10/2025 5:03 PM EDT 09/17/2025 3:07 PM EST Narrative [facility] - 09/17/2025 3:07 PM EST PERFORMED AT: [facility] [id number] ASSISTANT PROJECT MANAGER: Kevin Holguin MD PHONE: [phone] Navi Sims MD LAB BLOOD ORDERABLES Final Resu lt Performing Organization Address City/[facility]/ZIP Co de Phone Number [facility] [address] [facility] * AFP tumor marker (09/10/2025 5:03 PM EDT) [facility] AFP-Tumor Marker 2.0 0.0 - 9.0 ng/mL 09/10/2025 8:52 PM EDT [facility] Serum 09/10/2025 5:03 PM EDT 09/10/2025 6:42 PM EDT Narrative [facility] - 09/10/2025 8:52 PM EDT The testing method for AFP is a chemiluminescent immunoassay manufactured by [employer] Concentrations of AFP obtained by different assay methods or kits may vary and cannot be used interchangeably. AFP results cannot be interpreted as absolute evidence of the presence or absence of malignant disease. Buddy Zimmerman MD LAB BLOOD ORDERABLES Final Resul t [facility] [address] [facility] * (ABNORMAL) Varicella zoster antibody, IgG (09/10/2025 5:03 PM EDT) Pathologist [facility] Varicella IgG Positive( A) Negative S/CO 09/10/2025 11:49 PM EDT [facility] Comment:Result indicates the presence of detectable VZV IgG antibodies. A positive result is generally indicative of exposure to the pathogen or administration of specific immunoglobulins, but it is no indication of active infection or stage of disease. This test is not approved for determining vaccine-induced immunity to varicella zoster virus. VZV NUM 15.50(H) 0.00 - 0.99 S/CO 09/10/2025 11:49 PM EDT [facility] Serum 09/10/2025 5:03 PM EDT 09/10/2025 10:26 PM EDT Navi Sims MD LAB BLOOD ORDERABLES Final Resu lt Performing Organization Address City/[facility]/ZIP Co de Phone Number [facility] [address] [facility] * TSH (Thyroid Stimulating Hormone) (09/10/2025 5:03 PM EDT) TSH 2.85 0.45 - 4.12 uIU/mL 09/11/2025 12:13 AM EDT [facility] Serum 09/10/2025 5:03 PM EDT 09/10/2025 6:42 PM EDT Buddy Zimmerman MD LAB BLOOD ORDERABLES Final Resul t Performing Organization Address [facility] Co de Phone Number [facility] [address] * (ABNORMAL) Lipid Profile (09/10/2025 5:03 PM EDT) Non-HDL Cholesterol, Calculated 109 0 - 129 mg/dL 09/10/2025 8:21 PM EDT [facility] Comment: Desirable: < 130 mg/dL Above Desirable: 130-159 mg/dL Borderline High: 160-189 mg/dL High: 190-219 mg/dL Very High: > 219 mg/dL Cholesterol, Total 135 0 - 200 mg/dL 09/10/2025 8:21 PM EDT [facility] Triglycerides 60 10 - 149 mg/dL 09/10/2025 8:21 PM EDT [facility] HDL 26(L) 60 - 92 mg/dL 09/10/2025 8:21 PM EDT [facility] Comment: LIPID PROFILE INTERPRETATION CHOLESTEROL,TOTAL(mg/dL) [...] LDL Cholesterol 97 mg/dL 8:21 PM EDT [facility] Plasma 09/10/2025 5:03 PM EDT 09/10/2025 5:52 PM EDT Narrative [facility] - 09/10/2025 8:21 PM EDT Must the patient be fasting for this test?->No LDL cholesterol calculated using the Friedewald equation. us Buddy Zimmerman MD LAB BLOOD ORDERABLES Final Resul t [facility] [address] * ECG 12-Lead (MUSE) (09/10/2025 12:14 PM EDT) 09/10/2025 12:1 4 PM EDT Narrative [facility]USE - 09/10/2025 3:28 PM EDT Ventricular Rate: 64 BPM Atrial Rate: 64 BPM P-R Interval: 190 ms QRS Duration: 84 ms QT: 464 ms QTc: 478 ms P Dora: 27 degrees R Dora: 58 degrees T Dora: 22 degrees Diagnosis Line: NORMAL SINUS RHYTHM ^ NORMAL ECG ^ No previous ECGs available ^ Confirmed by MD TIP, [facility] ([id number]) on 09/10/2025 3:28:36 PM us Buddy [...] within the right upper lobe with downstream [id number] within the paramedian right upper lobe apex. 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 Chris Medel MD [address] [facility] [address] [place] [address] PCP - General Primary Care 10/25/25
--- OUTSIDE RECORDS SUMMARY | 2025-11-02 13:31 | XMS_ITS | Encounter Summary ---
Author Organization [facility] Address [address] [place] [address] Care Team Providers Care Offset Press Operator Helper Name Role Phone Ruma Hernández COMPUTER ENGINEERING PROFESSOR Unavailable [phone] Chris Medel MD Primary Care Provider [phone] Reason for Visit * Reason Onset Date Comments HCN - Patient Message 10/15/2025 Encounter Details Date Type Department Care Team ([facility] Contact Info) Description 10/15/2025 Telephone [facility]phrology, Bone [facility] Mineral Metabolism [address], [address] [place] [address] Moustapha Katz MD [address] [place] [address] HCN - Patient Message Social [...] do you attend up health system or pentecostal services? More than 4 times per year 02/19/2025 Do you belong to any clubs o r organizations such as moravian groups, unions, [employer] or athletic groups, or school groups? Yes [...] do you attend up health system or pentecostal services? More than 4 times per year 06/15/2025 Do you belong to any clubs o r organizations such as moravian groups, unions, [employer] or athletic groups, or school groups? Yes [...] and heating? Not hard at all 06/15/2025 [facility] Occupat ional Health - Occupational Stress [...] drink first t luisa in the morning (EYE-LAWYER PROBATE) to steady your nerves or to get rid of a hangover? 0 06/14/2025 CAGE Questionnaire Score 0 025 Utilities Answer Date Recorded In the past 12 months has th e [employer], gas, oil, or water company threatened to [...] r/s his 10/18 visit. Best contact number: [phone] (mobile) Optimal time of day to reach caller: ANYTIME Additional comments/information from caller: Note: Please do not reply to this message. Follow-up communication and further actions as a result of this message need to be communicated with the patient directly, if the patient is not active onMyChart. If the patient is active on MyChart, they will receive notification of the communication/outcome via [employer]. documented in this encounter Plan of Treatment Upcoming Encounters Date Type Department Care Team (Late st Contact Info) Description 11/27/2025 3:45 PM EST Office Visit Medical Office Building Urology [address], [address] [place] [address] Suhail Brock MD [address] [place] [address] 01/24/2026 4:40 PM EDT Office Visit [employer] [place] [facility] [address], [address] [place] [address] Moustapha Katz MD [address] [facility] [place] [address] documented as of this encounter [...] documented as of this encounter Care Teams Offset Press Operator Helper Relationship Specialty [place] [address] PCP - General 03/14/25 Ruma Hernández APRN [address] [facility] [address] [place] [address] Referring Physician Gastroenterology 07/30/23 documented as of this encounter
--- OUTSIDE RECORDS SUMMARY | 2025-11-02 13:31 | XMS_ITS | Encounter Summary ---
Author Organization Healthcare Address [address] [place] [address] Care Team Providers Care Watchmaker Apprentice Name Role Phone Ruma Hernández SIDE [employer] Unavailable [phone] Chris Medel MD Primary Care Provider [phone] Encounter Details Date Type Department Care Team (Late st Contact Info) Description 10/16/2025 Results Follow-Up [facility] [address] [place] [id number] Meaghan Le, RN [facility] LIVER [id number] [address] [place] [address] Social History Tobacco Use Types Packs/Day Years [...] 02/19/2025 How often do you attend [facility] or jewish services? More than 4 times per year 02/19/2025 Do you belong to any clubs o r organizations such as religious groups, unions, [employer] or athletic groups, or school groups? Yes [...] How often do you attend chur or jewish services? More than 4 times [...] heating? Not hard at all 06/15/2025 [facility] - Occupational Stress Questionnaire Answer [...] drink first t luisa in the morning (EYE-KITCHEN AND COUNTER WORKER) to steady your nerves or to get rid of a hangover? 0 06/14/2025 CAGE Questionnaire Score 0 025 Utilities Answer Date Recorded In the past 12 months has th e [employer], gas, oil, or water [employer] threatened to shut off services in your [...] [address], [address] [place] [address] Suhail Brock MD [address] [place] [address] 01/24/2026 4:40 PM EDT Office Visit [facility] [address], [address] [place] [address] Moustapha Katz MD [address] [place] [address] documented as of this encounter [...] documented as of this encounter Care Teams Watchmaker Apprentice Relationship Specialty [place] [id number] PCP - General 03/14/25 Ruma Hernández APRN [address] [place] [address] Referring Physician Gastroenterology 07/30/23 documented as of this encounter
--- OUTSIDE RECORDS SUMMARY | 2025-11-02 13:31 | XMS_ITS | Encounter Summary ---
Author Organization [facility] Address [address] [place] [address] Care Team Providers Care Personal Lines Agent Name Role Phone System, Provider Not [...] release of HIV test results or diagnoses. [id number] Health Encounter Details Date Type Department Care Team (Late st Contact Info) Description 10/18/2025 Chart Note [facility] Liver Transplant at [address] [address] Giovanna June, RN I introduced myself as inpatient liver department coordinator, explained Social History Tobacco Use Types [...] EST I introduced myself as inpatient liver department coordinator, explained role and provided my contact [...] documented as of this encounter Care Teams Personal Lines Agent Relationship Specialty Start Date End Date System, Provider Not In PCP - General 09/10/25 10/24/25 documented as of this encounter
--- OUTSIDE RECORDS SUMMARY | 2025-11-02 13:31 | XMS_ITS | Encounter Summary ---
Author Organization [facility] Address [address] [place] [address] Care Team Providers Care Compliance Specialist Name Role Phone System, Provider Not [...] release of HIV test results or diagnoses. [id number] Health Encounter Details Date Type Department Care [...] as of this encounter Care Teams Compliance Specialist Relationship Specialty Start Date End Date System, Provider Not In PCP - General 09/10/25 10/24/25 documented as of this encounter
--- OUTSIDE RECORDS SUMMARY | 2025-11-02 13:31 | XMS_ITS | Encounter Summary ---
Author Organization [facility] Address [address] [place] [address] Care Team Providers Care Ice Carver Name Role Phone System, Provider Not In [...] release of HIV test results or diagnoses. [id number] Health Encounter Details Date Type Department Care Team (Late st Contact Info) Description 10/18/2025 Chart Note [facility] Liver Transplant at [address] [address] Rosangela Lewis, RN I have verified that the donor serologies entered in [employer] match the donor Social History Tobacco Use [...] living in a penitentiary (including now)? No 10/17/2025 Utilities Answer Date [...] verified that the donor serologies entered in [employer] match the donor serologies that are listed in [facility]. documented in this encounter Plan of Treatment Not on file documented as of this encounter Visit Diagnoses Not on filedocumented in this encounter Additional Health Concerns Assessment Noted Time PHQ-9 Depression Total Score: 8 09/10/20 11:09 AM EDT documented as of this encounter Care Teams Ice Carver Relationship Specialty Start Date End Date System, Provider Not In PCP - General 09/10/25 10/24/25 documented as of this encounter
--- OUTSIDE RECORDS SUMMARY | 2025-11-02 13:33 | XMS_ITS | Encounter Summary ---
Author Organization Address [address] [place] [address] Care Team Providers Care Pelletizer Tender Name Role Phone System, Provider Not [...] release of HIV test results or diagnoses. [id number] Reason for Visit * Reason Comments Appointment Encounter Details Date Type Department Care Team (Late st Contact Info) Description 10/03/2025 Telephone [facility] Liver Transplant at [address] [address] Pb Sy, RN Appointment Social History Tobacco [...] Time granted: 1041 Who granted: OPO OPO: [facility] OPO Contact: Recent illnesses [] Yes [x] [...] need to bring equipment or solution to [facility]. They will get supplies from [...] Notifications: Department Phone Comments Time/Name Capacity Management [phone] Notified of patient's pending TXP ORGANS:LIVER Time:1130 Spoke to:ANASTASIIA HERNANDEZ [phone] OR scheduled for: per Dr. WINKLER Recipient in the OR time 10/03 Acute donor Risk (according to OPTN policy)NO (HCV, HBV, HIV, COVID) Notified Donor is DCD Heart using [employer] N/A Time:113 OR news editor:AVANI LUGO ORGAN Time:104 BLOOD BANK [phone] For Liver and Heart only [address] [facility] Nursing Yard Rigger [phone] For delayed call in [email or web address] PACU or Sameday [phone] Delayed call in: If recipient OR is 2 hrs or less from admission, call PACU/Sameday (basedon where nursing chimney supervisor brick assigns patient) DELAYED CALL IN Abdominal Transplant 8CCP [phone] Transfer of care reported for abdominal txp Notified of dialysis type and last session if applicable Time:DELAYED CALL IN 8CCP news editor: SICU [phone] Notify about abdominal txp admissions Time:1150 SICU news editor:SHILOH Transplant Surgery Resident/LAISHA Wyatt [email or web address] Time:1156 Spoke to:DR CHRISTIANSON Transplant Surgery Fellow QKhoa Time:1156 Spoke to:DR RUSSELL Transplant Research Team [phone] LEFT MESSAGE @6028 Time:1157 Spoke to: If applicable, Dialysis Unit EMR Time:N/A Spoke to: Pharmacy IV Room [phone] Liver Only Contact pharmacy to alert that HBIG will be needed when all the following are present: Donor: *HBsAg negative *HBV DNA/NII negative Recipient: *HBsAg positive *HBV DNA is detectable on most recent check Time:N/A Spoke to: Heart Transplant CVICU [phone] Transfer of care reported for heart txp Time:N/A CVICU news editor: Email notification to Transplant Team(s) and OR news editor. Received notification for potential Liver transplant for David Ppo, 1960. Recipient Info: David Pop 1960 ABO: A CMV: NEGATIVE EBV: POSITIVE HepBsAb: POSITIVE Referring MD: Dr. Portia Maguire. Surgeon: Dr. PETERSON Dai ETA: DELAYED CALL IN OR time and date: 10/03 CRRT needed in OR: NO Venoveno bypass: NO Donor info: Donor ID: [id number] Match ID: [id number] Anti-HBc: Negative HBV NII: Negative HBsAg: Negative [...] documented as of this encounter Care Teams Pelletizer Tender Relationship Specialty Start Date End Date System, Provider Not In PCP - General 09/10/25 10/24/25 documented as of this encounter
--- OUTSIDE RECORDS SUMMARY | 2025-11-02 13:33 | XMS_ITS | Clinical Summary ---
Author Organization [facility] Address [address] [place] [address] Care Team Providers Care Tap Builder Name Role Phone ToniUrban morataya DO Primary Care Provider [phone] Allergies Active Allergy Reactions Criticality Noted Date [...] Maintenance Results * SCANNED - COLONOSCOPY (03/31/2023) Cobry Echeverria MD CHART REVIEW T ABS Final Result from Last 3 Months or Most Recently Relevant to Health Maintenance Insurance [facility] PPO Care Teams Tap Builder Relationship Specialty Start Date End Date Urban Brantley DO [address] [place], [place] [id number] PCP - General Internal Medicine 03/22/23
--- OUTSIDE RECORDS SUMMARY | 2025-11-02 13:33 | XMS_ITS | Encounter Summary ---
Author Organization [facility] Address [address] [place] [address] Care Team Providers Care Commodity Loan Clerk Name Role Phone System, Provider Not In [...] release of HIV test results or diagnoses. [id number] Health Encounter Details Date Type Department Care Team (Late st Contact Info) Description 09/25/2025 Telephone [facility] Liver Transplant at [address] [address] Chapito Alcantar, SILVIO Social History Tobacco Use [...] toall offers. Patient [place] 1.5-2 hours from [facility]. documented in this encounter Plan of Treatment Not on file documented as of this encounter Visit Diagnoses Not on filedocumented in this encounter Additional Health Concerns Assessment Noted Time PHQ-9 Depression Total Score: 8 09/10/20 11:09 AM EDT documented as of this encounter Care Teams Commodity Loan Clerk Relationship Specialty Start Date End Date System, Provider Not In PCP - General 09/10/25 10/24/25 documented as of this encounter
--- OUTSIDE RECORDS SUMMARY | 2025-11-02 13:33 | XMS_ITS | Encounter Summary ---
Author Organization [facility] Address [address] [place] [address] Care Team Providers Care Prescription Clerk Name Role Phone System, Provider Not [...] release of HIV test results or diagnoses. [id number] Health Encounter Details Date Type Department Care Team (Late st Contact Info) Description 09/20/2025 Chart Note [facility] Liver Transplant at [address] [address] Chapito Alcantar RN Spoke with patient's spouse [...] documented as of this encounter Care Teams Prescription Clerk Relationship Specialty Start Date End Date System, Provider Not In PCP - General 09/10/25 10/24/25 documented as of this encounter
--- OUTSIDE RECORDS SUMMARY | 2025-11-02 13:33 | XMS_ITS | Encounter Summary ---
Author Organization [facility] Address [address] [place] [address] Care Team Providers Care Occupational Health And Safety Officer Name Role Phone System, Provider Not [...] release of HIV test results or diagnoses. [id number] Health Encounter Details Date Type Department Care Team (Late st Contact Info) Description 10/19/2025 Education Chart Note [facility] Liver Transplant at [address] [address] Giovanna June, RN Social History Tobacco Use [...] the past 12 months has th e [employer], gas, oil, or water [employer] threatened to shut off services in your [...] of Infection/Rejection [x] 5. When to call tool coordinator [x] 6. Outpatient follow up including [...] as of this encounter Care Teams Occupational Health And Safety Officer Relationship Specialty Start Date End Date System, Provider Not In PCP - General 09/10/25 10/24/25 documented as of this encounter
--- OUTSIDE RECORDS SUMMARY | 2025-11-02 13:33 | XMS_ITS | Clinical Summary ---
Author Organization [facility] Address [address] [place] [address] Care Team Providers Care Front Office Representative Name Role Phone Ruma Hernández INTERNATIONAL RELATIONS PROFESSOR Unavailable [phone] Chris Medel MD Primary Care Provider [phone] Allergies Active Allergy Reactions Criticality Noted Date Comments Lisinopril Cough Low 09/15/2021 Medications carvedilol (Coreg) 3.125 MG tabletIndication s:Cirrhosis of liver with ascites, unspecified hepatic cirrhosis type Take 1 tablet (3.125 mg) by mouth 2 (two) times a day with meals. 60 tablet 11 4 Active ergocalciferol (Vitamin D-2) 1.25 MG (79377 UT) capsule Take 1 capsule by mouth [...] on 09/12/2025 omeprazole (PriLOSEC) [address] Baez ns:Cirrhosis [...] through Wednesday 20 capsule 5 5 Active Xifaxan 550 MG tabletIndication s:Pre-liver transplant, listed,End-stage liver disease (CMS/HCC) TAKE ONE (1) TABLET BY MOUTH TWICE DAILY 180 tablet 3 5 Active Active Problems Problem Noted Date [...] Department Care Team Description 10/16/2025 Results Follow-Up [facility] [address] [place] [address] Meaghan Le RN 10/15/2025 Telephone [facility] [address], [address] [place] [address] Moustapha Katz MD HCN - Patient Message 10/09/2025 Results Follow-Up [facility] [address] [place] [address] Meaghan Le RN 10/08/2025 Orders Only [facility] [address] [place] [phone] Provider, Historical 10/02/2025 Refill [facility] [address] [phone] Portia Maguire MD Pre-liver transplant, listed (Primary Dx); End-stage liver disease (CMS/HCC) 09/12/2025 10:00 AM EDT Office Visit [facility] [address] [place] [address] Portia Maguire MD Pre-liver transplant, listed (Primary Dx); Cirrhosis of liver with ascites, unspecified hepatic cirrhosis type; Other ascites; Alcoholic cirrhosis, unspecified whether ascites present; Hemochromatosis associated with compound heterozygous mutation in HFE gene; Alcohol use disorder, moderate, in sustained remission; Hepatic encephalopathy (CMS/HCC) 09/12/2025 8:47 AM EDT - 09/12/2025 11:59 PM EDT Hospital Encounter [facility] [address] [place] [address] Pre-liver transplant, listed Discharge Disposition: Home or Self Care 09/12/2025 Results Follow-Up [facility] [address] [place] [id number] Meaghan Le RN 09/12/2025 Travel 09/11/2025 Travel 09/05/2025 Orders Only [facility] [address] [place] [phone] Meaghan Le RN Pre-liver transplant, listed (Primary Dx) 08/31/2025 Results Follow-Up [facility] [address] [place] [phone] Meaghan Le, RN 08/29/2025 Orders Only [facility] [address] [place] [phone] Provider, Historical 08/20/2025 Results Follow-Up [facility] [address] [place] [address] Meaghan Le RN from Last 3 Months [...] often do you attend [facility] or orthodox services? More than 4 [...] at all 06/15/2025 [facility] - [...] drink first t luisa in the morning ([employer]) to steady your nerves or to get [...] [address] [facility], [address] [place] [address] Suhail Brock MD [address] [place] [address] 01/24/2026 4:40 PM EDT Office Visit [facility] [address], [address] [place] [address] Moustapha Katz MD [address] [place] [address] Health Maintenance Due Date Last Done Comments [facility]-Infant/Child/Adol SDOH Screenings 1960 [id number] Vaccine (#1) 1960 [facility]-Hepatitis A Vaccines (1 [...] EST) Blood Venous blood specimen / Unknown [facility] Provider LAB BLOOD ORDERABLES Final R esult * Prothrombin Time/INR (10/08/2025 10:14 AM EST) Only the most recent of7 resultswithin the time period is included. Blood Venous blood specimen / Unknown Historical Provider LAB BLOOD ORDERABLES Final R esult * CBC and Differential (10/08/2025 10:14 AM EST) Only the most recent of2 resultswithin the time period is included. Blood Venous blood specimen / Unknown [facility] Provider LAB BLOOD ORDERABLES Final R esult * CBC W/O Differential (10/08/2025) Only the most recent of5 resultswithin the time period is included. External WBC 3.3 External Red Blood Cell (RBC) 3.23 External Hemoglobin (Hgb) 10.80 External Hematocrit (Hct) 32.6 External Platelet Count (Plt) 71 Blood Venous blood specimen / Unknown 10/08/2025 [facility] LAB BLOOD ORDERABLES Final R esult * [...] Blood Venous blood specimen / Unknown 10/08/2025 [facility] Provider LAB BLOOD ORDERABLES Final R [...] using the following sequences: coronal single shot [id number] fast spin echo, axial T2 weighted sequences [...] <20 <20 ng/mL 09/14 7:16 AM EDT [facility] Alpha OH Midazolam <20 <20 ng/mL 2024 7:16 AM EDT [facility] Alpha OH Triazolam <20 <20 ng/mL 2024 7:16 AM EDT [facility] Alprazolam <10 <10 ng/mL 09/14/2025 7:16 AM EDT [facility] Aminoclonazepam <20 <20 ng/mL 7:16 AM EDT [facility] Amphetamine <50 <50 ng/mL 09/14/2025 7:16 AM EDT [facility] Benzoylecgonine <50 <50 ng/mL 7:16 AM EDT [facility] Buprenorphine <10 <10 ng/mL 09/14/2025 7:16 AM EDT [facility] Buprenorphine Glucuronide <50 <50 ng/mL 09/14/2025 7:16 AM EDT [facility] Butalbital <50 <50 ng/mL 09/14/2025 7:16 AM EDT [facility] 9 Carboxy THC <10 <10 ng/mL 09/14/2025 7:16 AM EDT [facility] 9 Carboxy THC Glucuronide <25 <25 ng/mL 09/14/2025 7:16 AM EDT [facility] Clonazepam <10 <10 ng/mL 09/14/2025 7:16 AM EDT [facility] Codeine <50 <50 ng/mL 09/14/2025 7:16 AM EDT [facility] Codeine Glucuronide <50 <50 ng/mL 09/14 7:16 AM EDT [facility] Cyclobenzaprine <50 <50 ng/mL 7:16 AM EDT [facility] Desmethyl Tramadol <50 <50 ng/mL 2024 7:16 AM EDT [facility] Diazepam <10 <10 ng/mL 09/14/2025 7:16 AM EDT [facility] EDDP - Methadone Metabolite <50 <50 ng/mL 09/14/2025 7:16 AM EDT [facility] Fentanyl <1 <1 ng/mL 09/14/2025 7:16 AM EDT [facility] Hydrocodone <50 <50 ng/mL 09/14/2025 7:16 AM EDT [facility] Hydromorphone <50 <50 ng/mL 09/14/2025 7:16 AM EDT [facility] Hydromorphone Glucuronide <50 <50 ng/mL 09/14/2025 7:16 AM EDT [facility] Lorazepam <20 <20 ng/mL 09/14/2025 7:16 AM EDT [facility] Lorazepam Glucuronide <50 <50 ng/mL 09/14/2025 7:16 AM EDT [facility] MDA <50 <50 ng/mL 09/14/2025 7:16 AM EDT [facility] MDMA <50 <50 ng/mL 09/14/2025 7:16 AM EDT [facility] Meperidine <50 <50 ng/mL 09/14/2025 7:16 AM EDT [facility] Methadone <50 <50 ng/mL 09/14/2025 7:16 AM EDT [facility] Methamphetamine <50 <50 ng/mL 7:16 AM EDT [facility] Methylphenidate <50 <50 ng/mL 7:16 AM EDT [facility] 6 Monoacetyl morphine <10 <10 ng/mL 09/14/2025 7:16 AM EDT [facility] Morphine <50 <50 ng/mL 09/14/2025 7:16 AM EDT [facility] Morphine Glucuronide <50 <50 ng/mL 08/17 7:16 AM EDT [facility] Naloxone <50 <50 ng/mL 09/14/2025 7:16 AM EDT [facility] Naloxone Glucuronide <50 <50 ng/mL 08/17 7:16 AM EDT [facility] Norbuprenorphine <10 <10 ng/mL 09/14/20 7:16 AM EDT [facility] Norbuprenorphine Glucuronide <50 <50 ng/mL 09/14/2025 7:16 AM EDT [facility] Nordiazepam <20 <20 ng/mL 09/14/2025 7:16 AM EDT [facility] Norfentanyl <2 <2 ng/mL 09/14/2025 7:16 AM EDT [facility] Normeperidine <50 <50 ng/mL 09/14/2025 7:16 AM EDT [facility] PCP Quant, Ur <50 <50 ng/mL 09/14/2025 7:16 AM EDT [facility] Phenobarbital <50 <50 ng/mL 09/14/2025 7:16 AM EDT [facility] Oxazepam <20 <20 ng/mL 09/14/2025 7:16 AM EDT [facility] Oxazepam Glucuronide <50 <50 ng/mL 08/17 7:16 AM EDT [facility] Oxycodone <50 <50 ng/mL 09/14/2025 7:16 AM EDT [facility] Oxymorphone <50 <50 ng/mL 09/14/2025 7:16 AM EDT [facility] Oxymorphone Glucuronide <50 <50 ng/mL 09/14/2025 7:16 AM EDT [facility] Secobarbital <50 <50 ng/mL 09/14/2025 7:16 AM EDT [facility] Tramadol <50 <50 ng/mL 09/14/2025 7:16 AM EDT [facility] Temazepam <20 <20 ng/mL 09/14/2025 7:16 AM EDT [facility] Temazepam Glucuronide <50 <50 ng/mL 09/14/2025 7:16 AM EDT [facility] Urine Urine specimen obtained by clean catch procedure / Unknown Non-blood Collection / Unknown 09/12/2025 7:55 AM EDT 09/12/2025 8:51 AM EDT Narrative [facility] - 09/14/2025 7:16 AM EDT [...] laboratory. Test performed by LC-MS/MS at the [facility]. This test was developed and its performance characteristics determined by [facility]. It has not been cleared or approved by the FDA. The laboratory is regulated under CLIA as qualified to perform high-complexity testing. This test is used for clinical purposes. us Pearce M Alzubaidi MD LAB URINE ORDERABLES Nadia l Result Performing Organization Address City/[facility]/ZIP Co de Phone Number [facility] [address] [place] [address] * Alpha Fetoprotein, Serum (09/12/2025 7:55 AM EDT) Alpha Fetoprotein, Serum <2.3 <10.0 ng/mL 09/12/2025 10:18 AM EDT [facility] Blood Venous blood specimen / Unknown Venipuncture / Unknown 09/12/2025 7:55 AM EDT 09/12/2025 8:46 AM EDT Narrative [facility] - 09/12/2025 10:18 AM EDT Performed by [employer] electrochemiluminescent immunoassay which is traceable to the [address] [place] [address] IRP WHO Reference standard 72/255. Results obtained with different test methods or kits cannot be used interchangeably. Portia Maguire MD LAB BLOOD ORDERABLES Nadia l Result Performing Organization Address City/[facility] Co de Phone Number [facility] [address] [place] [address] * Nicotine Cotinine Metabolite (09/12/2025 7:55 AM EDT) NICOTINE <5 <5 ng/mL 09/14/2025 10:24 AM EDT [facility] Cotinine <5 <5 ng/mL 09/14/2025 10:[address] [facility] [place] Blood Venous blood specimen / Unknown Venipuncture / Unknown 09/12/2025 7:55 AM EDT 09/12/2025 8:46 AM EDT Narrative [facility] - 09/14/2025 10:24 AM EDT Testing performed by LC-MS/MS at the [facility]. This test was developed and its performance characteristics determined by [facility]. This assay has not been cleared by the FDA. The laboratory is regulated under CLIA as qualified to perform high-complexity testing. This test is used for clinical purposes. Portia Maguire MD LAB BLOOD ORDERABLES Nadia l Result Performing Organization Address [facility] Co de Phone Number [facility] [address] [place] [address] * Alcohol Urine (09/12/2025 7:55 AM EDT) Alcohol Urine Negative Negative 09/12/2025 1:41 PM EDT [facility] Urine Urine specimen obtained by clean catch procedure / Unknown Non-blood Collection / Unknown 09/12/2025 7:55 AM EDT 09/12/2025 8:51 AM EDT Narrative [facility] - 09/12/2025 1:41 PM EDT The correlation between urine and serum ethanol concentration is highly variable. Test performed by Gas Chromatography at the [facility]. This test was developed and its performance characteristics determined by [facility]. It has not been cleared or approved by the FDA.The laboratory is regulated under CLIA as qualified to perform high-complexity testing. This test is used for clinical purposes only. The correlation between urine and serum ethanol concentration is highly variable. Test performed by Gas Chromatography at the [facility]. This test was developed and its performance characteristics determined by [facility]. It has not been cleared or approved by the FDA.The laboratory is regulated under CLIA as qualified to perform high-complexity testing. This test is used for clinical purposes only. Portia Maguire MD LAB URINE ORDERABLES Nadia l Result Performing Organization Address [facility] Co de Phone Number [facility] [address] [place] [address] * Comprehensive Urine Drug Screening, Qualitative Assay, >= 27 Drug Classes (09/12/2025 7:55 AM EDT) Acetaminophen Negative Negative 09/16/2025 3:50 AM EST [facility] Alprazolam Negative Negative 09/16/2025 3:50 AM EST [facility] Amantadine Negative Negative 09/16/2025 3:50 AM EST [facility] Amitriptyline Negative Negative 09/16/2025 3:50 AM EST [facility] Amphetamine Negative Negative 09/16/2025 3:50 AM EST [facility] Atenolol Negative Negative 09/16/2025 3:50 AM EST [facility] Benzoylecgonine Negative Negative 3:50 AM EST [facility] Bisoprolol Negative Negative 09/16/2025 3:50 AM EST [facility] Bupropion Negative Negative 09/16/2025 3:50 AM EST [facility] Butalbital Negative Negative 09/16/2025 3:50 AM EST [facility] Carbamazepine Negative Negative 09/16/2025 3:50 AM EST [facility] Carisoprodol Negative Negative 09/16/2025 3:50 AM EST [facility] Chlorpheniramine Negative Negative 09/16/20 3:50 AM EST [facility] Citalopram Negative Negative 09/16/2025 3:50 AM EST [facility] Clindamycin Negative Negative 09/16/2025 3:50 AM EST [facility] Clonidine Negative Negative 09/16/2025 3:50 AM EST [facility] Clopidogrel / Ticlopidine Negative Negative 09/16/2025 3:50 AM EST [facility] Cocaethylene Negative Negative 09/16/2025 3:50 AM EST [facility] Cocaine Negative Negative 09/16/2025 3:50 AM EST [facility] Codeine Negative Negative 09/16/2025 3:50 AM EST [facility] Cyclobenzaprine Negative Negative 3:50 AM EST [facility] Desvenlafaxine Negative Negative 09/16/2025 3:50 AM EST [facility] Dextromethorphan Negative Negative 09/16/20 3:50 AM EST [facility] Diazepam Negative Negative 09/16/2025 3:50 AM EST [facility] Diltiazem Negative Negative 09/16/2025 3:50 AM EST [facility] Diphenhydramine Negative Negative 3:50 AM EST [facility] Doxepine Negative Negative 09/16/2025 3:50 AM EST [facility] Doxylamine Negative Negative 09/16/2025 3:50 AM EST [facility] EDDP-Methadone metabolite Negative Negative 09/16/2025 3:50 AM EST [facility] Fentanyl Negative Negative 09/16/2025 3:50 AM EST [facility] Fluconazole Negative Negative 09/16/2025 3:50 AM EST [facility] Fluoxetine Negative Negative 09/16/2025 3:50 AM EST [facility] Guaifenesin Negative Negative 09/16/2025 3:50 AM EST [facility] Haloperidol Negative Negative 09/16/2025 3:50 AM EST [facility] Heroin/6-MARY Negative Negative 09/16/2025 3:50 AM EST [facility] Hydrocodone Negative Negative 09/16/2025 3:50 AM EST [facility] Hydroxyzine / Cetirizine metabolite Negative Negative 09/16/2025 3:50 AM EST [facility] Ibuprofen Negative Negative 09/16/2025 3:50 AM EST [facility] Imipramine Negative Negative 09/16/2025 3:50 AM EST [facility] Ketamine Negative Negative 09/16/2025 3:50 AM EST [facility] Labetolol Negative Negative 09/16/2025 3:50 AM EST [facility] Lamotrigine Negative Negative 09/16/2025 3:50 AM EST [facility] Levetiracetam Negative Negative 09/16/2025 3:50 AM EST [facility] Lidocaine Negative Negative 09/16/2025 3:50 AM EST [facility] MDA Negative Negative 09/16/2025 3:50 AM EST [facility] MDMA Negative Negative 09/16/2025 3:50 AM EST [facility] Memantine Negative Negative 09/16/2025 3:50 AM EST [facility] Meperidine Negative Negative 09/16/2025 3:50 AM EST [facility] Meprobamate Negative Negative 09/16/2025 3:50 AM EST [facility] Metaxalone Negative Negative 09/16/2025 3:50 AM EST [facility] Methamphetamine Negative Negative 3:50 AM EST [facility] Methocarbamol Negative Negative 09/16/2025 3:50 AM EST [email or web address] Methylecgonine Negative Negative 09/16/2025 3:50 AM EST [facility] Metoclopramide Negative Negative 09/16/2025 3:50 AM EST [facility] Metoprolol Negative Negative 09/16/2025 3:50 AM EST [facility] Metronidazole Negative Negative 09/16/2025 3:50 AM EST [facility] Midazolam Negative Negative 09/16/2025 3:50 AM EST [facility] Midazolam Metabolite Negative Negative 12/2024 3:50 AM EST [facility] Mirtazapine Negative Negative 09/16/2025 3:50 AM EST [facility] Misc Test Result Negative Negative 09/16/20 3:50 AM EST [facility] Naproxen Negative Negative 09/16/2025 3:50 AM EST [facility] Nefazodone Negative Negative 09/16/2025 3:50 AM EST [facility] Norfentanyl Negative Negative 09/16/2025 3:50 AM EST [facility] Nortriptyline Negative Negative 09/16/2025 3:50 AM EST [facility] Ordanstron Negative Negative 09/16/2025 3:50 AM EST [facility] Oxcarbazepine Negative Negative 09/16/2025 3:50 AM EST [facility] Oxycodone Negative Negative 09/16/2025 3:50 AM EST [facility] Paroxethine Negative Negative 09/16/2025 3:50 AM EST [facility] Phenobarbital Negative Negative 09/16/2025 3:50 AM EST [facility] Phentermine Negative Negative 09/16/2025 3:50 AM EST [facility] Phenytoin Negative Negative 09/16/2025 3:50 AM EST [facility] Primidone Negative Negative 09/16/2025 3:50 AM EST [facility] Promethazine Negative Negative 09/16/2025 3:50 AM EST [facility] Propofol Negative Negative 09/16/2025 3:50 AM EST [facility] Propranolol Negative Negative 09/16/2025 3:50 AM EST [facility] Quetiapine Negative Negative 09/16/2025 3:50 AM EST [facility] Quinine Negative Negative 09/16/2025 3:50 AM EST [facility] Rantidine Negative Negative 09/16/2025 3:50 AM EST [facility] Sertraline Negative Negative 09/16/2025 3:50 AM EST [facility] Spironolactone Negative Negative 09/16/2025 3:50 AM EST [facility] Tizanidine Negative Negative 09/16/2025 3:50 AM EST [facility] Topiramate Negative Negative 09/16/2025 3:50 AM EST [facility] Tramadol Negative Negative 09/16/2025 3:50 AM EST [facility] Trazadone/ Trazadone metabolite Negative Negative 09/16/2025 3:50 AM EST [facility] Trimethoprim Negative Negative 09/16/2025 3:50 AM EST [facility] Valproic Acid Negative Negative 09/16/2025 3:50 AM EST [facility] Venlafaxine Negative Negative 09/16/2025 3:50 AM EST [facility] Verapamil Negative Negative 09/16/2025 3:50 AM EST [facility] Zolpidem Negative Negative 09/16/2025 3:50 AM EST [facility] Xylazine Negative Negative 09/16/2025 3:50 AM EST [facility] Urine Urine specimen obtained by clean catch procedure / Unknown Non-blood Collection / Unknown 09/12/2025 7:55 AM EDT 09/12/2025 8:51 AM EDT us Portia Maguire MD LAB URINE ORDERABLES Nadia l Result [facility] [address] [place] [address] * HIV 1 & 2 Antibody/Antigen Screen (06/14/2025 6:31 PM EDT) HIV 1 & 2 Antibody/Antigen Screen Non Reactive Non Reactive 06/14/2025 7:45 PM EDT [facility] Comment:Screening for HIV 1 & 2 antibodies, and P24 antigen is NONREACTIVE. No confirmatory testing is required. Blood Venous blood specimen / Unknown Venipuncture / Unknown 06/14/2025 6:31 PM EDT 06/14/2025 7:05 PM EDT us Luis Angel Bee MD LAB BLOOD ORDERABLES Nadia l Result Performing Organization Address [facility] Co de Phone Number [facility] [address] [place] [address] * Hepatitis C Antibody (06/14/2025 6:31 PM EDT) Hepatitis C Antibody Negative Negative 06/14/2025 7:45 PM EDT [facility] Blood Venous blood specimen / Unknown Venipuncture / Unknown 06/14/2025 6:31 PM EDT 06/14/2025 7:05 PM EDT us Luis Angel Bee MD LAB BLOOD ORDERABLES Nadia l Result Performing Organization Address [facility] Co de Phone Number [facility] [address] [place] [address] * Dexa Bone Density (06/08/2025 8:35 AM EDT) Anatomical Region Laterality Modality L-spine Radiographic Liseth ging Narrative 06/17/2025 10:07 PM EDT [facility] [address] [place] [address] DXA Bone Densitometry Report: [06/08/2025] BMD test performed using the [facility] [facility] DXA System (analysis version: 14.10) manufactured by [employer]. REFERRING PROVIDER: Dr. Moustapha Katz MD CLINICAL [...] of change in BMD). Moustapha Katz MD [facility] DXA PROCEDURES Final Resul t from Last 3 Months or Most Recently Relevant to Health Maintenance Insurance ANTHEM E CarePaymentMNOTANAReefEdge [id number] ANTHEM Advance Directives Documents on File Type Date Recorded Patient Power Electronics Engineer Expl anation Power of Tunnel Inspector 07/11/2025 POA / Trudy ng Will Care Teams Front Office Representative Relationship Specialty Start Date End Date Chris Medel MD [id number] PCP - General 03/14/25 Ruma Hernández APRN [address] [place] [address] Referring Physician Gastroenterology 07/30/23
--- OUTSIDE RECORDS SUMMARY | 2025-11-02 13:33 | XMS_ITS | Encounter Summary ---
Author Organization [facility] Address [address] [place] [address] Care Team Providers Care Acid Tester Name Role Phone Dr. Chris Medel MD [...] release of HIV test results or diagnoses. [id number] Reason for Visit * Reason Comments Results Encounter Details Date Type Department Care Team ([facility] Contact Info) Description 10/31/2025 Telephone [facility] Liver Transplant at [address] [address] Ruma Benjamin, SILVIO Results Social [...] No 10/17/2025 Housing Stability Vital Sign Answer Franscio e [...] Phos 281 (from 319) 13.0 FK level Latest Reference Range & Units 10/29/25 07:49 10/30/25 08:07 Bilirubin, Indirect 0.00 - 1.10 mg/dL 0.7 (E) 1.04 Bili, Total 0.0 - 1.5 mg/dL 1.4 (E) 2.4 (H) Bilirubin, Direct 0.00 - 0.40 mg/dL 0.7 (E) 1.36 (H) (H): Data is abnormally high (E): External lab result Current ISP: FK 5mg BID MMF 500mg BID Pred 20mg daily Will route to Txp Provider for further review and recommendations. * Telephone Encounter - Ruma Benjamin RN [...] documented as of this encounter Care Teams Acid Tester Relationship Specialty Start Date End Date Dr. Chris Medel MD [address] [place] [address] PCP - General Primary Care 10/25/25 documented as of this encounter
--- OUTSIDE RECORDS SUMMARY | 2025-11-02 13:33 | XMS_ITS | Encounter Summary ---
Author Organization [facility] Address [address] [place] [address] Care Team Providers Care Case Assembler Name Role Phone System, Provider Not [...] release of HIV test results or diagnoses. [id number] Health Encounter Details Date Type Department Care Team (Late st Contact Info) Description 10/23/2025 Orders Only [facility] Liver Transplant at [address] [address] Giovanna June, RN Liver replaced by transplant ([facility]) (Primary Dx) Social History Tobacco Use Types [...] Associated Diagnoses Orde r Schedule US Duplex Wkf-Jpu-Rlahcij Comp Imaging Routine Liver replaced by transplant [...] documented as of this encounter Care Teams Case Assembler Relationship Specialty Start Date End Date System, Provider Not In PCP - General 09/10/25 10/24/25 documented as of this encounter
--- OUTSIDE RECORDS SUMMARY | 2025-11-02 13:33 | XMS_ITS | Encounter Summary ---
Author Organization [facility] Address [address] [place] [address] Care Team Providers Care Wallpaper Inspector Name Role Phone System, Provider Not [...] release of HIV test results or diagnoses. 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 year aw Dietitian [...] nlc Physical Capacity nlc Working for Income [facility] Multidisciplinary Team documentation Initial Hepatology assessment nlc shop worker within the last year nlc Dietitian within the last year nlc Finance within the last year nlc Pharmacy within the last year nl Initial surgery assessment nlc RN coordinator EDU documentation nlc Book marked labs/pertinent data (Regulatory) [facility] documented in this encounter Plan [...] documented as of this encounter Care Teams Wallpaper Inspector Relationship Specialty Start Date End Date System, Provider Not In PCP - General 09/10/25 10/24/25 documented as of this encounter
--- OUTSIDE RECORDS SUMMARY | 2025-11-02 13:33 | XMS_ITS | Encounter Summary ---
Author Organization [facility] Address [address] [place] [address] Care Team Providers Care Server Service Assistant Name Role Phone System, Provider Not [...] release of HIV test results or diagnoses. [id number] Health Encounter Details Date Type Department Care Team (Late st Contact Info) Description 09/24/2025 Chart Note [facility] Kidney Transplant at [address] [phone] Ailin Wells Called local office again to [...] documented as of this encounter Care Teams Server Service Assistant Relationship Specialty Start Date End Date System, Provider Not In PCP - General 09/10/25 10/24/25 documented as of this encounter
--- OUTSIDE RECORDS SUMMARY | 2025-11-02 13:33 | XMS_ITS | Encounter Summary ---
Author Organization [facility] Address [address] [place] [address] Care Team Providers Care Meat Soaker Name Role Phone KaronUrban Hosea CAMARA Primary Care Provider [phone] Encounter Details Date Type Department Care Team (Late st Contact Info) Description 10/14/2023 Telephone [facility] [address] [facility] [address] [place] [address] Ruma Hernández, POLE PEELING MACHINE OPERATOR [address] [facility] [address] [place], [place] [address] Social History Tobacco Use Types Packs/Day Years [...] on filedocumented in this encounter Care Teams Meat Soaker Relationship Specialty Start Date End Date Urban Brantley DO [address] [place] [address] PCP - General Internal Medicine 03/22/23 documented as of this encounter
--- OUTSIDE RECORDS SUMMARY | 2025-11-02 13:33 | XMS_ITS | Encounter Summary ---
Author Organization [facility] Address [address] [place] [address] Care Team Providers Care Stock Blender Name Role Phone System, Provider Not In [...] release of HIV test results or diagnoses. [id number] Health Encounter Details Date Type Department Care Team (Late st Contact Info) Description 10/03/2025 Chart Note [facility] Kidney Transplant at [address] [address] Ailin Wells Organ: Liver Social History Tobacco [...] Organ: Liver Patient [place] Citizen: Yes Patient [place]: No Patient is Minor Children in the home: no Patient is retired, spouse works FT Income:$11k/mnth combined Primary Ins: [place] [employer] Insured:self Secondary Ins: N/A COBRA: No- insurance plan is paid by previous employer as part of skilled nursing package Eligible for short/fci disability: N/A Disability due to: n/A Travel/Lodging: no No Medicare: Will be eligible in January of 2026. Provided RetireMed info Discussed Medication List and Coverage: Yes Patient will need medications from [facility] post txp:unknown Recipient needs cleared prior to donor being evaluated:no Evaluation for patients/donors need to be done at [facility] Obtained signature on benefits sheets and financial consent: mailed to patient documented in this encounter Plan of Treatment Not on file documented as of this encounter Visit Diagnoses Not on filedocumented in this encounter Additional Health Concerns Assessment Noted Time PHQ-9 Depression Total Score: 8 09/10/20 11:09 AM EDT documented as of this encounter Care Teams Stock Blender Relationship Specialty Start Date End Date System, Provider Not In PCP - General 09/10/25 10/24/25 documented as of this encounter
--- OUTSIDE RECORDS SUMMARY | 2025-11-02 13:33 | XMS_ITS | Encounter Summary ---
Author Organization [facility] Address [address] [place] [address] Care Team Providers Care Residency Coordinator Name Role Phone System, Provider Not [...] release of HIV test results or diagnoses. [id number] Health Encounter Details Date Type Department Care Team (Late st Contact Info) Description 09/24/2025 Orders Only [facility] Liver Transplant at [address] [address] Chapito Alcantar, SILVIO Alcoholic cirrhosis of liver [...] - 15.1 seconds 09/24/2025 3:06 PM EST [facility] INR 1.9(H) 0.9 - 1.1 09/24/2025 3:06 PM EST [facility] Comment: RECOMMENDED THERAPEUTIC RANGES USING INR : Stable oral anticoagulant therapy: 2.0 - 3.0 Mechanical prosthetic heart valve: 2.5 - 3.5 Recurrent acute myocardial infarction: 2.5 - 3.5 Plasma 09/24/2025 2:11 PM EST 09/24/2025 2:43 PM EST Nigel Reaves MD LAB BLOOD ORDERABLES Final Resul t [facility] [address] * (ABNORMAL) Renal Function Panel w/EGFR (09/24/2025 2:11 PM EST) Pathologist [facility] Sodium 137 133 - 146 mmol/L 09/24/2025 6:36 PM EST [facility] Potassium 3.9 3.5 - 5.3 mmol/L 09/24/2025 6:36 PM EST [facility] Chloride 104 98 - 110 mmol/L 09/24/2025 6:36 PM EST [facility] CO2 29 21 - 33 mmol/L 09/24/2025 6:36 PM EST [facility] Comment:High lactate dehydro genase concentrations in patient samples may cause falsely increased bicarbonate results. If markedly elevated LDH is observed or suspected, please assess results in conjunction with patient`s clinical presentation. In cases of discrepant results, consider evaluating CO2 in with a blood gas order. Anion Gap 4 3 - 16 mmol/L 09/24/2025 6:36 PM EST [facility] BUN 13 7 - 25 mg/dL 09/24/2025 6:36 PM EST [facility] Creatinine 0.84 0.60 - 1.30 mg/dL 09/24/2025 6:36 PM EST [facility] Glucose 98 70 - 100 mg/dL 09/24/2025 6:36 PM EST [facility] Calcium 8.1(L) 8.6 - 10.3 mg/dL 09/24/2025 6:36 PM EST [facility] Phosphorus 3.5 2.1 - 4.7 mg/dL 09/24/2025 6:36 PM EST [facility] Albumin 2.0(L) 3.5 - 5.7 g/dL 09/24/2025 6:36 PM EST [facility] Osmolality, Calculated 284 278 - 305 mOsm/kg 09/24/2025 6:36 PM EST [facility] EGFR >90 09/24/2025 6:36 PM EST [facility] Comment: As of 2022, the estimated [...] MD LAB BLOOD ORDERABLES Final Resul t [facility] [address] [place] [address], [facility] * (ABNORMAL) Hepatic Function Panel (09/24/2025 2:11 PM EST) Total Bilirubin 3.4(H) 0.0 - 1.5 mg/dL 09/24/2025 6:36 PM EST [facility] Bilirubin, Direct 1.07(H) 0.00 - 0.40 mg/dL 09/24/2025 6:36 PM EST [facility] AST 37 13 - 39 U/L 09/24/2025 6:36 PM EST [facility] ALT 22 7 - 52 U/L 09/24/2025 6:36 PM EST [facility] Alkaline Phosphatase 142(H) 36 - 125 U/L 09/24/2025 6:36 PM EST [facility] Total Protein 5.8(L) 6.4 - 8.9 g/dL 09/24/2025 6:36 PM EST [facility] Albumin 2.0(L) 3.5 - 5.7 g/dL 09/24/2025 6:36 PM EST [facility] Bilirubin, Indirect 2.33(H) 0.00 - 1.10 mg/dL 09/24/2025 6:36 PM EST [facility] Plasma 09/24/2025 2:11 PM EST 09/24/2025 5:52 PM EST us Nigel Reaves MD LAB BLOOD ORDERABLES Final Resul t [facility] [address] [place] [address], [facility] documented in this encounter Visit Diagnoses Diagnosis Alcoholic cirrhosis of liver with ascites (CMS-HCC)- Primary Pre-transplant evaluation for chronic liver disease documented in this encounter Additional Health Concerns Assessment Noted Time PHQ-9 Depression Total Score: 8 09/10/20 25 11:09 AM EDT documented as of this encounter Care Teams Residency Coordinator Relationship Specialty Start Date End Date System, Provider Not In PCP - General 09/10/25 10/24/25 documented as of this encounter
--- OUTSIDE RECORDS SUMMARY | 2025-11-02 13:33 | XMS_ITS | Encounter Summary ---
Author Organization [facility] Address [address] [place] [address] Care Team Providers Care Technology Project Manager Name Role Phone System, Provider Not [...] release of HIV test results or diagnoses. [id number] Health Encounter Details Date Type Department Care Team (Late st Contact Info) Description 09/21/2025 Refill [facility] at [facility] [address] [place] [phone] Arturo Gibson, RN Social History Tobacco Use [...] documented as of this encounter Care Teams Technology Project Manager Relationship Specialty Start Date End Date System, Provider Not In PCP - General 09/10/25 10/24/25 documented as of this encounter
--- OUTSIDE RECORDS SUMMARY | 2025-11-02 13:33 | XMS_ITS | Encounter Summary ---
Author Organization [facility] Address [address] [place] [address] Care Team Providers Care Automatic Washer Mechanic Name Role Phone Dr. Chris Medel MD [...] release of HIV test results or diagnoses. [id number] Health Encounter Details Date Type Department Care Team (Late st Contact Info) Description 10/30/2025 Social Work [facility] Liver Transplant at [address] [place] [phone] Michelle Ho, ASSISTANT BOOKKEEPER, FIBERGLASS DOWEL DRAWING OPERATOR Social History Tobacco Use Types Packs/Day Years [...] this encounter Progress Notes * MADHAV Arias, FIBERGLASS DOWEL DRAWING OPERATOR - 10/30/2025 10:29 AM EST Social Work [...] reports that they have not yet received [facility] services. OSCAR to call [facility] ([phone]) to obtain a status update. Hope Stone given on this date. No additional SW needs identified at this time. SW will continue to follow. MADHAV Arias, FIBERGLASS DOWEL DRAWING OPERATOR [phone] documented in this encounter Plan of Treatment Not on file documented as of this encounter Visit Diagnoses Not on filedocumented in this encounter Additional Health Concerns Assessment Noted Time PHQ-9 Depression Total Score: 8 09/10/20 11:09 AM EDT documented as of this encounter Care Teams Automatic Washer Mechanic Relationship Specialty Start Date End Date Dr. Chris Medel MD [address] [place] [address] PCP - General Primary Care 10/25/25 documented as of this encounter
--- OUTSIDE RECORDS SUMMARY | 2025-11-02 13:33 | XMS_ITS | Encounter Summary ---
Author Organization [facility] Address [address] [place] [address] Care Team Providers Care Milk Runner Name Role Phone System, Provider Not [...] release of HIV test results or diagnoses. [id number] Health Encounter Details Date Type Department Care Team (Late st Contact Info) Description 09/25/2025 Chart Note [facility] Kidney Transplant at [address] [address] Ailin Wells Authorization for listing Social History [...] for listing Organ: Liver Insurance Co: [facility] Graphic Design Manager: Serena Carter ext [phone] Authorization # [id number] Dates of Service: 09/24/2025-09/23/2026 Additional Information: Scanned to PFS documented in this encounter Plan of Treatment Not on file documented as of this encounter Visit Diagnoses Not on filedocumented in this encounter Additional Health Concerns Assessment Noted Time PHQ-9 Depression Total Score: 8 09/10/20 11:09 AM EDT documented as of this encounter Care Teams Milk Runner Relationship Specialty Start Date End Date System, Provider Not In PCP - General 09/10/25 10/24/25 documented as of this encounter
--- OUTSIDE RECORDS SUMMARY | 2025-11-02 13:33 | XMS_ITS | Encounter Summary ---
Author Organization [facility] Address [address] [place] [address] Care Team Providers Care Delivery Rep Name Role Phone System, Provider Not [...] release of HIV test results or diagnoses. [id number] Health Encounter Details Date Type Department Care Team (Late st Contact Info) Description 10/17/2025 Telephone [facility] Liver Transplant at [address] [address] Joslyn Faulkner, RN Social History [...] the past 12 months has th e [employer], gas, oil, or water company threatened to [...] [] No Pt instructed for admission Location: [facility] Estimated arrival time: 10/17 @ 0900 [x] [...] Notifications: Department Phone Comments Time/Name Capacity Management [phone] Notified of patient's pending TXP ORGANS:Liver Time: Spoke to: n/a OR [phone] OR scheduled for: per Dr. Drew Recipient in the OR time 10/17 @ 1200 Acute donor Risk (according to OPTN policy)No (HCV, HBV, HIV, COVID) Notified Donor is DBD Time:29 spoke to Carlos OR clinic director: Blanca Cooper CREATED ORGAN Time: 26 BLOOD BANK [phone] For Liver and Heart only 33 spoke juve Fernández Nursing Construction Inspector [phone] For delayed call in 26 spoke with Abby PACU or [facility] [phone] Delayed call in: If recipient OR is 2 hrs or less from admission, call PACU/[facility] (basedon where nursing traffic supervisor assigns patient) 0730-spoke with Tejas Abdominal Transplant 8CCP [phone] Transfer of care reported for abdominal txp Notified of dialysis type and last session if applicable Time: 36 8CCP clinic director: Vasquez SICU [phone] Notify about abdominal txp admissions Time:37 SICU clinic director:Marisela Transplant Surgery Resident/PA QGenda Time: 809 Spoke to: Erikan Transplant Surgery Fellow QGenda Time: 29 Spoke to: Dr Haley Transplant Research Team [phone] Time: 809 Spoke to: [facility] [phone] Liver Only Contact pharmacy to alert that HBIG will be needed when all the following are present: Donor: *HBsAg negative *HBV DNA/NII negative Recipient: *HBsAg positive *HBV DNA is detectable on most recent check Time: Spoke to: N/A Email notification to Transplant Team(s) and OR clinic director. [Send the following information below to the [...] Venoveno bypass: no Donor info: Donor ID: [id number] Match ID: [id number] Anti-HBc: Negative HBV NII: Negative HBsAg: Negative [...]
--- OUTSIDE RECORDS SUMMARY | 2025-11-02 13:33 | XMS_ITS | Encounter Summary ---
Author Organization [facility] Address [address] [place] [address] Care Team Providers Care Furnace Checker Name Role Phone System, Provider Not [...] release of HIV test results or diagnoses. [id number] Health Encounter Details Date Type Department Care Team (Late st Contact Info) Description 09/20/2025 Telephone [facility] Liver Transplant at [address] [address] Cori Dover [place] Social History Tobacco Use [...] [place] - 09/20/2025 10:29 AM EST [facility] called to get patient scheduled for a follow up visit with Dr. Reaves. documented in this encounter Plan of Treatment Not on file documented as of this encounter Visit Diagnoses Not on filedocumented in this encounter Additional Health Concerns Assessment Noted Time PHQ-9 Depression Total Score: 8 09/10/20 11:09 AM EDT documented as of this encounter Care Teams Furnace Checker Relationship Specialty Start Date End Date System, Provider Not In PCP - General 09/10/25 10/24/25 documented as of this encounter
--- OUTSIDE RECORDS SUMMARY | 2025-11-02 13:33 | XMS_ITS | Encounter Summary ---
[facility] Address [address] [place] [address] Care Team Providers Care Automotive Customer Experience Advisor Name Role Phone KaronUrban Hosea CAMARA Primary Care Provider [phone] Encounter Details Date Type Department Care Team (Late st Contact Info) Description 10/14/2023 Telephone [facility] GASTROENTEROLOGY [address] [facility] [address] [place] [address] Ruma Hernández, ACOUSTICAL LOGGING ENGINEER [address] [facility] [address] [place], [place] [id number] Social History Tobacco Use Types Packs/Day Years [...] filedocumented in this encounter Care Teams Automotive Customer Experience Advisor Relationship Specialty Start Date End Date Urban Brantley DO [address] [place] [address] PCP - General Internal Medicine 03/22/23 documented as of this encounter
--- OUTSIDE RECORDS SUMMARY | 2025-11-02 13:33 | XMS_ITS | Encounter Summary ---
Author Organization [facility] Address [address] [place] [address] Care Team Providers Care Design Assembler Name Role Phone Ruma Hernández BUSINESS AND MARKETING TEACHER Unavailable [phone] Chris Medel MD Primary Care Provider [phone] Encounter Details Date Type Department Care Team (Late st Contact Info) Description 08/20/2025 Results Follow-Up [facility] Transplant Center [address] [place] [phone] Meaghan Le, RN [facility] LIVER [id number] [address] [place] [address] Social History Tobacco Use Types Packs/Day Years [...] you attend [facility] or mu-ism services? More than 4 times per year 02/19/2025 Do you belong to any clubs o r organizations such as nondenominational groups, unions, [employer] or athletic groups, or school groups? Yes [...] 06/15/2025 [facility] - Occupational Stress Questionnaire Answer [...] drink first t luisa in the morning (EYE-NANNY BABYSITTER) to steady your nerves or to get rid of a hangover? 0 06/14/2025 CAGE Questionnaire Score 0 025 Utilities Answer Date Recorded In the past 12 months has e [employer], gas, oil, or water [employer] threatened to shut off services in your [...] Medical Office Building Urology [address] [facility], [address] [place] [address] Suhail Brock MD [address] [place] [address] 01/24/2026 4:40 PM EDT Office Visit [facility] [address] [facility], [address] [place] [address] Moustapha Katz MD [address] [facility] [address] [place] [address] documented as of this encounter [...] documented as of this encounter Care Teams Design Assembler Relationship Specialty [place] [address] PCP - General 03/14/25 Ruma Hernández APRN [address] [facility] [address] [place], [place] [id number] Referring Physician Gastroenterology 07/30/23 documented as of this encounter
--- OUTSIDE RECORDS SUMMARY | 2025-11-02 13:33 | XMS_ITS | Encounter Summary ---
Author Organization Healthcare Address [address] [place] [address] Care Team Providers Care Preliminary School Psychologist Name Role Phone Ruma Hernández CLINICAL SERVICES MANAGER Unavailable [phone] Chris Medel MD Primary Care Provider [phone] Reason for Visit * Reason Comments Med Refill Encounter Details Date Type Department Care Team (Late st Contact Info) Description 10/02/[address] [facility] [address] [place] [address] Portia Maguire MD [address] [place] [address] Pre-liver transplant, listed (Primary Dx); [...] How often do you attend chur or anglican services? More than 4 times per year 02/19/2025 Do you belong to any clubs o r organizations such as gnosticist groups, unions, [employer] or athletic groups, or school groups? Yes [...] How often do you attend chur or anglican services? More than 4 times per year 06/15/2025 Do you belong to any clubs o r organizations such as gnosticist groups, unions, [employer] or athletic groups, or school groups? Yes [...] and heating? Not hard at all 06/15/2025 [facility] [place] [facility] Occupat ional [facility] - Occupational Stress [...] first t luisa in the morning (EYE-BUSINESS MANAGEMENT ANALYST) to steady your nerves or to [...] [address] [facility], [address] [place] [address] Suhail Brock MD [address] [place] [address] 01/24/2026 4:40 PM EDT Office Visit Professional [facility] [address] [facility] [address], [address] [place] [address] Moustapha Katz MD [address] [facility] [address] [place] [address] documented as of this encounter [...] documented as of this encounter Care Teams Preliminary School Psychologist Relationship Specialty [place] [address] PCP - General 03/14/25 Ruma Hernández APRN [address] [place] [address] Referring Physician Gastroenterology 07/30/23 documented as of this encounter
--- OUTSIDE RECORDS SUMMARY | 2025-11-02 13:33 | XMS_ITS | Encounter Summary ---
Author Organization [facility] Address [address] [place] [address] Care Team Providers Care Unmanned Equipment Operator Name Role Phone Dr. Chris Medel [...] release of HIV test results or diagnoses. [id number] Health Encounter Details Date Type Department Care Team (Late st Contact Info) Description 10/30/2025 Chart Note [facility] Liver Transplant at [address] [place] [address] Pita Pike MA FK pending [facility] Social [...] 2.8(A) 3.5 - 5.0 g/dL Blood Result [facility] Provider LAB BLOOD ORDERABLES Nadia l [...] 10^6/ L WBC 10.3 10^3/mL Blood Result [facility] Provider LAB BLOOD ORDERABLES Nadia l Result * Hepatic Function Panel (10/29/2025 7:49 AM EST) Bilirubin, Direct 0.7 Bilirubin, Indirect 0.7 Alkaline Phosphatase 319 ALT 138 AST 55 Total Bilirubin 1.4 Total Protein 5.5 Plasma Result [facility] Provider LAB BLOOD ORDERABLES Nadia l Result documented in this encounter Visit Diagnoses Not on filedocumented in this encounter Additional Health Concerns Assessment Noted Time PHQ-9 Depression Total Score: 8 09/10/20 25 11:09 AM EDT documented as of this encounter Care Teams Unmanned Equipment Operator Relationship Specialty Start Date End Date Dr. Chris Medel MD [address] [place] [address] PCP - General Primary Care 10/25/25 documented as of this encounter
--- OUTSIDE RECORDS SUMMARY | 2025-11-02 13:33 | XMS_ITS | Encounter Summary ---
Author Organization Healthcare Address [address] [place] [address] Care Team Providers Care Deputy Editor In Chief Name Role Phone Ruma Hernández INFORMATION SECURITY ARCHITECT Unavailable [phone] Chris Medel MD Primary Care Provider [phone] Encounter Details Date Type Department Care Team (Late st Contact Info) Description 08/01/2025 Results Follow-Up [facility] Transplant Center [address] [place] [id number] Meaghan Le, RN [facility] LIVER [id number] [address] [place] [address] Social History Tobacco Use Types Packs/Day Years [...] How often do you attend [facility] or caodaism services? More than 4 times per year 02/19/2025 Do you belong to any clubs o r organizations such as pentecostal groups, unions, [employer] or athletic groups, or school groups? [...] How often do you attend chur or caodaism services? More than 4 times [...] and heating? Not hard at all 06/15/2025 [facility] - Occupational Stress Questionnaire Answer [...] drink first t luisa in the morning (EYE-DOCTOR ASSISTANT) to steady your nerves or to get rid of a hangover? 0 06/14/2025 CAGE Questionnaire Score 0 025 Utilities Answer Date Recorded In the past 12 months has th e [employer], gas, oil, or water [place] threatened to shut off services in your [...] [facility], [address] [place] [address] Suhail Brock MD [address] [facility] [address] [place] [address] 01/24/2026 4:40 PM EDT Office Visit Professional [facility] [place] [facility] [address] [facility], [address] [place] [address] Moustapha Katz MD [address] [facility] [address] [place] [address] documented as [...] documented as of this encounter Care Teams Deputy Editor In Chief Relationship Specialty [place] [address] PCP - General 03/14/25 Ruma Hernández APRN [address] [place], [place] [id number] Referring Physician Gastroenterology 07/30/23 documented as of this encounter
--- OUTSIDE RECORDS SUMMARY | 2025-11-02 13:33 | XMS_ITS | Encounter Summary ---
Author Organization [facility] Address [address] [place] [address] Care Team Providers Care Package Delivery Room Service Runner Name Role Phone System, Provider Not [...] release of HIV test results or diagnoses. [id number] Health Encounter Details Date Type Department Care Team (Late st Contact Info) Description 10/22/2025 Chart Note [facility] Liver Transplant at [address] [address] Cori Womack, PharmD Liver Transplant Pharmacy Discharge [...] been consistently below 30 since transplant and [facility] was held inpatient, the team decided on [...] a day with meals. Was on ergocalciferol FISHING BOAT CAPTAIN but vitamin D level inpatient >20 furosemide [...] mouth every morning before breakfast. 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
--- OUTSIDE RECORDS SUMMARY | 2025-11-02 13:33 | XMS_ITS | Encounter Summary ---
Author Organization [facility] Address [address] [place] [address] Care Team Providers Care Log Brander Name Role Phone Dr. Chris Medel MD [...] release of HIV test results or diagnoses. [id number] Health Encounter Details Date Type Department Care Team (Late st Contact Info) Description 10/30/2025 Nutrition [facility] Kidney Transplant at [address] [address] Oskar Arango, FLEX Social History Tobacco Use [...] documented as of this encounter Care Teams Log Brander Relationship Specialty Start Date End Date Dr. Chris Medel MD [address] [facility] [place] [address] PCP - General Primary Care 10/25/25 documented as of this encounter
--- OUTSIDE RECORDS SUMMARY | 2025-11-02 13:33 | XMS_ITS | Encounter Summary ---
Author Organization [facility] Address [address] [place] [address] Care Team Providers Care Career Development Coordinator/Teacher Name Role Phone System, Provider Not In [...] release of HIV test results or diagnoses. [id number] Health Encounter Details Date Type Department Care Team (Late st Contact Info) Description 10/03/2025 Telephone [facility] Liver Transplant at [address] [address] Pb Sy, RN Social History Tobacco Use [...] well as Bed Board, OR Charge, Nursing Textile Engineer, blood bank and Sicu charge. documented in this encounter Plan of Treatment Not on file documented as of this encounter Visit Diagnoses Not on filedocumented in this encounter Additional Health Concerns Assessment Noted Time PHQ-9 Depression Total Score: 8 09/10/20 11:09 AM EDT documented as of this encounter Care Teams Career Development Coordinator/Teacher Relationship Specialty Start Date End Date System, Provider Not In PCP - General 09/10/25 10/24/25 documented as of this encounter
--- OUTSIDE RECORDS SUMMARY | 2025-11-02 13:33 | XMS_ITS | Encounter Summary ---
Author Organization [facility] Address [address] [place] [address] Care Team Providers Care Gymnastics Coach Or Instructor Name Role Phone System, Provider Not [...] release of HIV test results or diagnoses. [id number] Health Encounter Details Date Type Department Care Team (Late st Contact Info) Description 10/22/2025 Orders Only [facility] Liver Transplant at [address] [address] Ruma Benjamin, SILVIO S/P liver transplant ([facility]) (Primary Dx); Immunosuppression ([facility]) Social History Tobacco Use Types Packs/Day Years [...] Tacrolimus level Lab Routine S/P liver transplant ([facility]) Immunosuppression ([facility]) twice weekly for 120 Occurrences starting 10/22/2025 until 04/22/2027, 1 completed documented as of this encounter Results * Tacrolimus level (10/30/2025 8:07 AM EST) Tacrolimus (LC-MS) 13.0 3.0 - 15.0 ng/mL 10/30/2025 3:02 PM EST [facility] Comment:Performed via liquid chromatography tandem mass spectrometry. Detection limit: 1 ng/mL. Individual target concentrations may vary due to target organ and time after transplant. This test has been developed and its performance characteristics determined by [facility] which is certified under the [...] 10/30/2025 9:12 AM EST Narrative [facility] - 10/30/2025 3:02 PM EST Standing liver transplant labs. Please fax results to [phone]. Call critical results to [phone]. us Felice Nugent III, MD LAB BLOOD ORDERABLE S Final Result [facility] [address] [place], [place] [address] * (ABNORMAL) Differential (10/30/2025 8:07 AM EST) Neutrophils Relative 79.6 40.0 - 80.0 % 10/30/2025 9:26 AM EST [facility] Lymphocytes Relative 6.3(L) 15.0 - 45.0 % 10/30/2025 9:26 AM EST [facility] Monocytes Relative 9.8 0.0 - 12.0 % 10/30/2025 9:26 AM EST [facility] Eosinophils Relative 3.4 0.0 - 8.0 % 10/30/2025 9:26 AM EST [facility] Basophils Relative 0.9 0.0 - 1.0 % 10/30/2025 9:26 AM EST [facility] nRBC 0 0 - 0 /100 WBC 10/30/2025 9:26 AM EST [facility] Neutrophils Absolute 6,209 1,520 - 8,640 /uL 10/30/2025 9:26 AM EST [facility] Lymphocytes Absolute 491(L) 570 - 4,860 /uL 10/30/2025 9:26 AM EST [facility] Monocytes Absolute 764 0 - 1,296 /uL 10/30/2025 9:26 AM EST [facility] Eosinophils Absolute 265 0 - 864 /uL 10/30/2025 9:26 AM EST [facility] Basophils Absolute 70 0 - 108 /uL 10/30/2025 9:26 AM EST [facility] Whole Blood 10/30/2025 8:07 AM EST 10/30/2025 9:[address] [facility] HEALTH LAB - 10/30/2025 9:26 AM EST [facility] liver transplant labs. Please fax results to [phone]. Call critical results to [phone]. us Felice Nugent III, MD LAB BLOOD ORDERABLE S Final Result [facility] [address] [place] [address], [facility] * (ABNORMAL) CBC (10/30/2025 8:07 AM EST) WBC 7.8 3.8 - 10.8 10E3/uL 10/30/2025 9:26 AM EST [facility] RBC 2.67(L) 4.20 - 5.80 10E6/uL 10/30/2025 9:26 AM EST [facility] Hemoglobin 10.1(L) 13.2 - 17.1 g/dL 10/30/2025 9:26 AM EST [facility] Hematocrit 27.2(L) 38.5 - 50.0 % 10/30/2025 9:26 AM EST [facility] MCV 101.7(H) 80.0 - 100.0 fL 10/30/2025 9:26 AM EST [facility] MCH 37.8(H) 27.0 - 33.0 pg 10/30/2025 9:26 AM EST [facility] MCHC 37.1(H) 32.0 - 36.0 g/dL 10/30/2025 9:26 AM EST [facility] RDW 17.4(H) 11.0 - 15.0 % 10/30/2025 9:26 AM EST [facility] Platelets 159 140 - 400 10E3/uL 10/30/2025 9:26 AM EST [facility] MPV 8.5 7.5 - 11.5 fL 10/30/2025 9:26 AM EST [facility] Whole Blood 10/30/2025 8:07 AM EST 10/30/2025 9:11 AM EST Narrative [facility] - 10/30/2025 9:26 AM EST [facility] liver transplant labs. Please fax results to [phone]. Call critical results to [phone]. us Felice Nugent III, MD LAB BLOOD ORDERABLE S Final Result [facility] [address] [place] [address], [facility] * (ABNORMAL) Renal Function Panel w/EGFR (10/30/2025 8:07 AM EST) Sodium 138 133 - 146 mmol/L 10/30/2025 10:12 AM EST [facility] Potassium 4.5 3.5 - 5.3 mmol/L 10/30/2025 10:12 AM EST [facility] Chloride 101 98 - 110 mmol/L 10/30/2025 10:12 AM EST [facility] CO2 29 21 - 33 mmol/L 10/30/2025 10:12 AM EST [facility] Comment:High lactate dehydro genase concentrations in patient samples may cause falsely increased bicarbonate results. If markedly elevated LDH is observed or suspected, please assess results in conjunction with patient`s clinical presentation. In cases of discrepant results, consider evaluating CO2 in with a blood gas order. Anion Gap 8 3 - 16 mmol/L 10/30/2025 10:12 AM [facility] BUN 17 7 - 25 mg/dL 10/30/2025 10:12 AM [facility] Creatinine 0.90 0.60 - 1.30 mg/dL 10/30/2025 10:12 AM [facility] Glucose 124(H) 70 - 100 mg/dL 10/30/2025 10:12 AM [facility] Calcium 7.9(L) 8.6 - 10.3 mg/dL 10/30/2025 10:12 AM [facility] Phosphorus 3.9 2.1 - 4.7 mg/dL 10/30/2025 10:12 AM [facility] Albumin 2.9(L) 3.5 - 5.7 g/dL 10/30/2025 10:12 AM [facility] Osmolality, Calculated 289 278 - 305 mOsm/kg 10/30/2025 10:12 AM [facility] EGFR >90 10/30/2025 10:12 AM [facility] Comment: As of 2022, the estimated [...] 8:07 AM EST 10/30/2025 9:12 AM EST [facility] - 10/30/2025 10:12 AM EST Standing liver transplant labs. Please fax results to [phone]. Call critical results to [phone]. Felice Nugent III, MD LAB BLOOD ORDERABLE S Final Result [facility] [address] [facility]. [address] * (ABNORMAL) Hepatic Function Panel (10/30/2025 8:07 AM EST) Total Bilirubin 2.4(H) 0.0 - 1.5 mg/dL 10/30/2025 10:12 AM EST [facility] Bilirubin, Direct 1.36(H) 0.00 - 0.40 mg/dL 10/30/2025 10:12 AM EST [facility] AST 39 13 - 39 U/L 10/30/2025 10:12 AM EST [facility] ALT 88(H) 7 - 52 U/L 10/30/2025 10:12 AM EST [facility] Alkaline Phosphatase 281(H) 36 - 125 U/L 10/30/2025 10:12 AM EST [facility] Total Protein 5.9(L) 6.4 - 8.9 g/dL 10/30/2025 10:12 AM EST [facility] Albumin 2.9(L) 3.5 - 5.7 g/dL 10/30/2025 10:12 AM EST [facility] Bilirubin, Indirect 1.04 0.00 - 1.10 mg/dL 10/30/2025 10:12 AM EST [facility] Plasma 10/30/2025 8:07 AM EST 10/30/2025 9:12 AM EST Narrative HEALTH LAB - 10/30/2025 10:12 AM EST Standing liver transplant labs. Please fax results to [phone]. Call critical results to [phone]. Felice Nugent III, MD LAB BLOOD ORDERABLE S Final Result [facility] [address] [place] [id number], [facility] documented in this encounter Visit Diagnoses Diagnosis S/P liver transplant ([facility])- Primary Immunosuppression ([facility]) documented in this encounter Additional Health Concerns Assessment Noted Time PHQ-9 Depression Total Score: 8 09/10/20 11:09 AM EDT documented as of this encounter Care Teams Gymnastics Coach Or Instructor Relationship Specialty Start Date End Date System, Provider Not In PCP - General 09/10/25 10/24/25 documented as of this encounter
--- OUTSIDE RECORDS SUMMARY | 2025-11-02 13:33 | XMS_ITS | Encounter Summary ---
Author Organization Healthcare Address [address] [place] [address] Care Team Providers Care Pipe Fitter Apprentice Name Role Phone Ruma Hernández MOTOR VEHICLE PARTS INTERPRETER Unavailable [phone] Chris Medel MD Primary Care Provider [phone] Encounter Details Date Type Department Care Team (Late st Contact Info) Description 10/08/2025 Orders Only [facility] Medicine Specialties [address] [place] [phone] Provider, [place] [address] [address] [place] [phone] Social History Tobacco Use Types Packs/Day Years [...] you attend [facility] or worship services? More than 4 times per year 02/19/2025 Do you belong to any clubs o r organizations such as yazidism groups, unions, [employer] or athletic groups, or school groups? Yes [...] Not hard at all 06/15/2025 [facility] - Occupational Stress Questionnaire Answer [...] drink first t luisa in the morning (EYE-POWER EQUIPMENT MECHANICS INSTRUCTOR) to steady your nerves or to get rid of a hangover? 0 06/14/2025 CAGE Questionnaire Score 0 025 Utilities Answer Date Recorded In the past 12 months has th e [employer], gas, oil, or water [employer] threatened to shut off services in [...] Visit Medical Office Building Urology [address] [facility], [address] [place] [address] Suhail Brock MD [address] [facility] [address] [place] [address] 01/24/2026 4:40 PM EDT Office Visit [facility] [address] [facility], [address] [place] [address] Moustapah Katz MD [address] [facility] [address] [place] [address] documented as of this encounter Procedures Procedure Name Priority Date/Time Associated Diagnosis Comments COMPLETE METABOLIC PROFILE (CMP) Routine 10/08/2025 10:14 AM EST APTT Routine 10/08/2025 10:14 AM EST PROTHROMBIN TIME(PT) / INR Routine 10/08/2025 10:14 AM EST CBC WITH AUTO DIFFERENTIAL Routine 10/08/2025 10:14 AM EST documented in this encounter Results * COMPLETE METABOLIC PROFILE (CMP) (10/08/2025 10:14 AM EST) [facility] Provider LAB BLOOD ORDERABLES Final R esult * Prothrombin Time/INR (10/08/2025 10:14 AM EST) Blood Venous blood specimen / Unknown Result [facility] Provider LAB BLOOD ORDERABLES Final R esult * APTT (10/08/2025 10:14 AM EST) Blood Venous blood specimen / Unknown Result [facility] Provider LAB BLOOD ORDERABLES Final R esult * CBC and Differential (10/08/2025 10:14 AM EST) Blood Venous blood specimen / Unknown Result [facility] Provider LAB BLOOD ORDERABLES Final R [...] documented as of this encounter Care Teams Pipe Fitter Apprentice Relationship Specialty [place] [address] PCP - General 03/14/25 Ruma Hernández APRN [address] [address] Referring Physician Gastroenterology 07/30/23 documented as of this encounter
--- OUTSIDE RECORDS SUMMARY | 2025-11-02 13:34 | XMS_ITS | Encounter Summary ---
Author Organization [facility] Address [address] [place] [address] Care Team Providers Care Reporting Manager Name Role Phone System, Provider Not [...] release of HIV test results or diagnoses. [id number] Health Encounter Details Date Type Department Care Team (Late st Contact Info) Description 10/18/2025 Chart Note [facility] Kidney Transplant at [address] [address] Ailin Wells Txp Patient Called In Social [...] Txp Date:10/17/2025 Organ: Liver Primary Ins: Jayy [facility] Meal Temperer: Serena Carter ext [phone] Txp Auth:[id number] Dates:09/24/2025-09/23/2026 Admit Auth: IV to obtain RX:Jayy documented in this encounter Plan of Treatment Not on file documented as of this encounter Visit Diagnoses Not on filedocumented in this encounter Additional Health Concerns Assessment Noted Time PHQ-9 Depression Total Score: 8 10/27/20 25 11:09 AM EDT documented as of this encounter Care Teams Reporting Manager Relationship Specialty Start Date End Date System, Provider Not In PCP - General 09/10/25 10/24/25 documented as of this encounter
--- OUTSIDE RECORDS SUMMARY | 2025-11-02 13:34 | XMS_ITS | Encounter Summary ---
Author Organization [facility] Address [address] [place] [address] Care Team Providers Care Molded Goods Inspector Trimmer Name Role Phone System, Provider Not [...] release of HIV test results or diagnoses. [id number] Health Encounter Details Date Type Department Care Team (Late st Contact Info) Description 10/22/2025 Orders Only [facility] Liver Transplant at [address] [address] Felice Nugent III, MD [address] [place] [phone] Liver replaced by transplant ([facility]) (Primary Dx); Immunosuppressive management encounter following liver transplant ([facility]) Social History Tobacco Use Types [...] documented as of this encounter Care Teams Molded Goods Inspector Trimmer Relationship Specialty Start Date End Date System, Provider Not In PCP - General 09/10/25 10/24/25 Dr. Chris Medel MD [address] [place] [address] PCP - General Primary Care 10/25/25 documented as of this encounter
[2025-11-02 13:35] LABS: Microscopic, Urine URINE MICROSCOPIC (MICROSCOPIC)
--- OUTSIDE RECORDS SUMMARY | 2025-11-02 13:35 | XMS_ITS | Encounter Summary ---
Author Organization Healthcare Address [address] [place] [address] Care Team Providers Care Helmet Hat Sweatband Puncher Name Role Phone Ruma Hernández PROFESSOR OF PRACTICE Unavailable [phone] Chris Medel MD Primary Care Provider [phone] Encounter Details Date Type Department Care Team (Late st Contact Info) Description 08/31/2025 Results Follow-Up [facility] Transplant Center [address] [place] [address] Meaghan Le, RN [facility] LIVER [id number] [address] [place] [address] Social History Tobacco Use Types Packs/Day Years [...] [facility] or worship services? More than 4 times per year 02/19/2025 Do you belong to any clubs o r organizations such as restorationism groups, unions, [employer] or athletic groups, or school groups? Yes [...] heating? Not hard at all 06/15/2025 [facility] - Occupational Stress [...] first t luisa in the morning (EYE-COMMERCIAL SEWING INSTRUCTOR) to steady your nerves or to get rid of a hangover? 0 06/14/2025 CAGE Questionnaire Score 0 025 Utilities Answer Date Recorded In the past 12 months has e [employer], gas, oil, or water [employer] threatened to shut off services in [...] E [facility], [address] [place] [address] Suhail Brock MD [address] [place] [address] 01/24/2026 4:40 PM EDT Office Visit Professional [facility] [address] [facility], [address] [place] [address] Moustapha Katz MD [address] [facility] [address] [place] [address] documented as of this encounter [...] documented as of this encounter Care Teams Helmet Hat Sweatband Puncher Relationship Specialty [place] [address] PCP - General 03/14/25 Ruma Hernández APRN [address] [facility] [address] [place] [address] Referring Physician Gastroenterology 07/30/23 documented as of this encounter
--- OUTSIDE RECORDS SUMMARY | 2025-11-02 13:35 | XMS_ITS | Encounter Summary ---
Author Organization [facility] Address [address] [place] [address] Care Team Providers Care Rotary Drier Operator Name Role Phone Dr. Chris Medel [...] release of HIV test results or diagnoses. [id number] Health Encounter Details Date Type Department Care Team (Late st Contact Info) Description 10/25/2025 Orders Only [facility] Liver Transplant at [address] [address] Felice Nugent III, MD [address] [place] [address] Social History Tobacco Use Types Packs/Day [...] in a skilled nursing (including now)? No 10/17/2025 Utilities Answer Date Recorded In the past 12 months has th e [employer], gas, oil, or water company threatened to [...] S Final Result [facility] [address] [place] [address] documented in this encounter Visit Diagnoses Not on filedocumented in this encounter Additional Health Concerns Assessment Noted Time PHQ-9 Depression Total Score: 8 09/10/20 11:09 AM EDT documented as of this encounter Care Teams Rotary Drier Operator Relationship Specialty Start Date End Date Dr. Chris Medel MD [address] [place] [address] PCP - General Primary Care 10/25/25 documented as of this encounter
--- OUTSIDE RECORDS SUMMARY | 2025-11-02 13:35 | XMS_ITS | Encounter Summary ---
Author Organization Healthcare Address [address] [place] [address] Care Team Providers Care Clinical Genetics Laboratory Chief Name Role Phone Ruma Hernández MARKETING GRAPHICS SPECIALIST Unavailable Chris Medel MD Primary Care Provider + [phone] Reason for Referral * Imaging (Routine) - Closed Specialty Diagnoses / Procedures Referred By Gianna reyes Referred To Contact Radiology Diagnoses Pre-liver transplant, listed Procedures MR Abdomen w and wo IV Contrast Portia Maguire MD [address] [facility] [address] [place] [address] Phone: tel: fax: Referral ID Status Reason Start Date Expiration Date Visits Re quested Visits Authorized [id number] Closed 09/05/2025 03/07/2027 1 1 Encounter Details Date Type Department Care Team (Late st Contact Info) Description 09/05/2025 Orders Only [facility] Transplant Center [address] [facility] [address] [place] [address] Meaghan Le, RN [facility] LIVER [id number] [address] [place] [address] Pre-liver transplant, listed (Primary Dx) Social History [...] week 02/19/2025 How often do you attend [facility] or [facility] services? More than 4 times [...] first t luisa in the morning (EYE-CUSTOMS CONSULTANT) to steady your nerves or to [...] [address] [facility], [address] [place] [address] Suhail Brock MD [address] [place] [address] 01/24/2026 4:40 PM EDT Office Visit [employer] [facility] [address] [facility], [address] [place] [address] Moustapha Katz MD [address] [place] [address] documented as of this encounter [...] are consistent with and integrated into the Citizen [place] Association for the Study of Liver Diseases [...] using the following sequences: coronal single shot [id number] fast spin echo, axial T2 weighted sequences [...] are consistent with and integrated into the Citizen [place] Associationfor the Study of Liver Diseases (AASLD) [...] as of this encounter Care Teams Clinical Genetics Laboratory Chief Relationship Specialty [place] [address] PCP - General 03/14/25 Ruma Hernández APRN [address] [address] Referring Physician Gastroenterology 07/30/23 documented as of this encounter
--- OUTSIDE RECORDS SUMMARY | 2025-11-02 13:35 | XMS_ITS | Encounter Summary ---
Author Organization [facility] Address [address] [place] [address] Care Team Providers Care Bulb Packer Name Role Phone Dr. Chris Medel MD [...] release of HIV test results or diagnoses. [id number] Health Encounter Details Date Type Department Care Team (Late st Contact Info) Description 10/25/2025 Telephone [facility] Liver Transplant at [address] [place] [address] Pita Pike MA Social History Tobacco [...] living in a fpc (including now)? No 10/17/2025 Utilities Answer Date [...] Pike MA - 10/25/2025 11:46 AM EST [facility] called to say that they would not [...] his clinic appt and then relayed to [facility] that they would have to still pt on 11/01 for labs and incisional check. documented in this encounter Plan of Treatment Not on file documented as of this encounter Visit Diagnoses Not on filedocumented in this encounter Additional Health Concerns Assessment Noted Time PHQ-9 Depression Total Score: 8 09/10/20 25 11:09 AM EDT documented as of this encounter Care Teams Bulb Packer Relationship Specialty Start Date End Date Dr. Chris Medel MD [address] [place] [address] PCP - General Primary Care 10/25/25 documented as of this encounter
--- OUTSIDE RECORDS SUMMARY | 2025-11-02 13:35 | XMS_ITS | Encounter Summary ---
Author Organization [facility] Address [address] [place] [address] Care Team Providers Care Exchange Architect Name Role Phone Unknown, Attending Provider Primary [...] release of HIV test results or diagnoses. [id number] Health Encounter Details Date Type Department Care Team (Late st Contact Info) Description 09/13/2024 Orders Only EXTERNAL PROV RESULTS [address] [place] [address] System, Provider Not In Social History Tobacco [...] on filedocumented in this encounter Care Teams Exchange Architect Relationship Specialty Start Date End Date Unknown, Attending Provider PCP - General 08/29/2508/16 System, Provider Not In PCP - General 09/10/25 10/24/25 Dr. Chris Medel MD [address] [place] [address] PCP - General Primary Care 10/25/25 documented as of this encounter
--- OUTSIDE RECORDS SUMMARY | 2025-11-02 13:35 | XMS_ITS | Encounter Summary ---
Author Organization [facility] Address [address] [place] [address] Care Team Providers Care Statement Distribution Clerk Name Role Phone System, Provider Not [...] release of HIV test results or diagnoses. [id number] Health Encounter Details Date Type Department Care Team (Late st Contact Info) Description 09/17/2025 Telephone [facility] I[facility] at [facility] [address] [address] [place] [address] Navi Sims MD [address] [facility] [address] [place] [address] Social History Tobacco Use Types Packs/Day [...] documented as of this encounter Care Teams Statement Distribution Clerk Relationship Specialty Start Date End Date System, Provider Not In PCP - General 09/10/25 10/24/25 documented as of this encounter
--- OUTSIDE RECORDS SUMMARY | 2025-11-02 13:35 | XMS_ITS | Encounter Summary ---
Author Organization Healthcare Address [address] [place] [address] Care Team Providers Care Consulting Solution Manager Name Role Phone Ruma Hernández ORE BUYER Unavailable [phone] Chris Medel MD Primary Care Provider [phone] Encounter Details Date Type Department Care Team (Late st Contact Info) Description 07/19/2025 Results Follow-Up [facility] Transplant Center [address] [place] [address] Meaghan Le, RN [facility] LIVER [id number] [address] [place] [address] Social History Tobacco Use Types Packs/Day Years [...] 02/19/2025 How often do you attend [facility] or jew services? More than 4 times per year 02/19/2025 Do you belong to any clubs o r organizations such as advent groups, unions, [employer] or athletic groups, or school groups? Yes [...] heating? Not hard at all 06/15/2025 [facility] - Occupational Stress Questionnaire Answer [...] drink first t luisa in the morning (EYE-DISTRICT WILDLIFE MANAGER) to steady your nerves or to get rid of a hangover? 0 06/14/2025 CAGE Questionnaire Score 0 025 Utilities Answer Date Recorded In the past 12 months has th e [employer], gas, oil, or water [employer] threatened to shut off services in your [...] E [facility] [place], [address] [place] [address] Suhail Brock MD [address] [facility] [address] [place] [address] 01/24/2026 4:40 PM EDT Office Visit Professional [facility] [address] [facility] [place], [address] [place] [address] Moustapha Katz MD [address] [facility] [place] [address] [place] [address] documented as of this encounter [...] documented as of this encounter Care Teams Consulting Solution Manager Relationship Specialty [place] [address] PCP - General 03/14/25 Ruma Hernández APRN [address] [place], [place] [address] Referring Physician Gastroenterology 07/30/23 documented as of this encounter
--- OUTSIDE RECORDS SUMMARY | 2025-11-02 13:35 | XMS_ITS | Encounter Summary ---
Author Organization [facility] Address [address] [place] [address] Care Team Providers Care Medical Physics Teacher Name Role Phone Unknown, Attending Provider [...] release of HIV test results or diagnoses. [id number] Health Encounter Details Date Type Department Care Team (Late st Contact Info) Description 09/05/2025 Abstract [facility] Liver Transplant at [address] [address] Chapito Alcantar, SILVIO Alcoholic cirrhosis of liver [...] disease documented in this encounter Care Teams Medical Physics Teacher Relationship Specialty Start Date End Date Unknown, Attending Provider PCP - General 08/29/2508/16 documented as of this encounter
--- OUTSIDE RECORDS SUMMARY | 2025-11-02 13:35 | XMS_ITS | Encounter Summary ---
Author Organization [facility] Address [address] [place] [address] Care Team Providers Care Library Circulation Technician Name Role Phone Unknown, Attending Provider [...] release of HIV test results or diagnoses. [id number] Health Encounter Details Date Type Department Care Team (Late st Contact Info) Description 06/13/2025 Orders Only EXTERNAL PROV RESULTS [address] [place] [address] System, Provider Not In Social History Tobacco [...] on filedocumented in this encounter Care Teams Library Circulation Technician Relationship Specialty Start Date End Date Unknown, Attending Provider PCP - General 08/29/2508/16 System, Provider Not In PCP - General 09/10/25 10/24/25 Dr. Chris Medel MD [address] [place] [address] PCP - General Primary Care 10/25/25 documented as of this encounter
--- OUTSIDE RECORDS SUMMARY | 2025-11-02 13:35 | XMS_ITS | Encounter Summary ---
Author Organization [facility] Address [address] [place] [address] Care Team Providers Care Student Success Counselor Name Role Phone System, Provider Not [...] release of HIV test results or diagnoses. [id number] Health Encounter Details Date Type Department Care Team (Late st Contact Info) Description 10/24/2025 Telephone [facility] Liver Transplant at [address] [address] Linn Andres MA Social History [...] - 10/24/2025 8:23 AM EST Gisela from [facility] lab called to report critical lab [...] of this encounter Care Teams Student Success Counselor Relationship Specialty Start Date End Date System, Provider Not In PCP - General 09/10/25 10/24/25 documented as of this encounter
--- OUTSIDE RECORDS SUMMARY | 2025-11-02 13:35 | XMS_ITS | Encounter Summary ---
Author Organization [facility] Address [address] [place] [address] Care Team Providers Care Tractor Trailer Operator Name Role Phone System, Provider Not [...] release of HIV test results or diagnoses. [id number] Health Encounter Details Date Type Department Care Team (Late st Contact Info) Description 09/19/2025 Telephone [facility] Liver Transplant at [address] [address] Chapito Alcantar RN Social History Tobacco Use [...] an OSH with a transfer pending to [facility]. Updated family that no bed is [...] as of this encounter Care Teams Tractor Trailer Operator Relationship Specialty Start Date End Date System, Provider Not In PCP - General 09/10/25 10/24/25 documented as of this encounter
--- OUTSIDE RECORDS SUMMARY | 2025-11-02 13:35 | XMS_ITS | Encounter Summary ---
Author Organization [facility] Address [address] [place] [address] Care Team Providers Care Curb Worker Name Role Phone Unknown, Attending Provider [...] release of HIV test results or diagnoses. [id number] Health Encounter Details Date Type Department Care Team (Late st Contact Info) Description 09/05/[address] [facility] Liver Transplant at [address] [address] Chapito Alcantar RN Social History Tobacco Use [...] on filedocumented in this encounter Care Teams Curb Worker Relationship Specialty Start Date End Date Unknown, Attending Provider PCP - General 08/29/2508/16 documented as of this encounter
--- OUTSIDE RECORDS SUMMARY | 2025-11-02 13:35 | XMS_ITS | Encounter Summary ---
Author Organization [facility] Address [address] [place] [address] Care Team Providers Care Mandarin Tutor Name Role Phone Unknown, Attending Provider Primary [...] release of HIV test results or diagnoses. [id number] Reason for Referral * Imaging/Cardiovascular Scan (Routine) - New Request Specialty Diagnoses / Procedures Referred By Contac t Referred To Contact Radiology Procedures CT Abdomen and or Pelvis Outside Exam System, Provider Not In [address] [address] Referral ID Status Reason Start Date Expiration Date V isits Requested Visits Authorized [id number] New Request 09/08/2025 03/07/2026 1 1 Encounter Details Date Type Department Care Team (Late st Contact Info) Description 04/21/2024 Orders Only EXTERNAL PROV RESULTS [address] [place] [address] System, Provider Not In Social History Tobacco [...] on filedocumented in this encounter Care Teams Mandarin Tutor Relationship Specialty Start Date End Date Unknown, Attending Provider PCP - General 08/29/2508/16 System, Provider Not In PCP - General 09/10/25 10/24/25 Dr. Chris Medel MD [address] [place] [address] PCP - General Primary Care 10/25/25 documented as of this encounter
--- OUTSIDE RECORDS SUMMARY | 2025-11-02 13:35 | XMS_ITS | Encounter Summary ---
Author Organization [facility] Address [address] [place] [address] Care Team Providers Care Epic Radiant Analyst Name Role Phone Unknown, Attending Provider Primary [...] release of HIV test results or diagnoses. [id number] Health Encounter Details Date Type Department Care Team (Late st Contact Info) Description 09/05/2025 Telephone [facility] Liver Transplant at [address] [address] Cori Dover MA Social History Tobacco Use [...] request the following images be sent to [facility] Pacs: Must send fax request. Request faxed [...] on filedocumented in this encounter Care Teams Epic Radiant Analyst Relationship Specialty Start Date End Date Unknown, Attending Provider PCP - General 08/29/2508/16 documented as of this encounter
--- OUTSIDE RECORDS SUMMARY | 2025-11-02 13:35 | XMS_ITS | Encounter Summary ---
Author Organization [facility] Address [address] [place] [address] Care Team Providers Care Sod Farmer Name Role Phone Unknown, Attending Provider Primary [...] release of HIV test results or diagnoses. [id number] Reason for Referral * Imaging/Cardiovascular Scan (Routine) - New Request Specialty Diagnoses / Procedures Referred By Contac t Referred To Contact Radiology Procedures CT Abdomen and or Pelvis Outside Exam System, Provider Not In [address] [address] Referral ID Status Reason Start Date Expiration Date V isits Requested Visits Authorized [id number] New Request 09/08/2025 03/07/2026 1 1 Encounter Details Date Type Department Care Team (Late st Contact Info) Description 03/14/2025 Orders Only EXTERNAL PROV RESULTS [address] [place] [address] System, Provider Not In Social History Tobacco [...] on filedocumented in this encounter Care Teams Sod Farmer Relationship Specialty Start Date End Date Unknown, Attending Provider PCP - General 08/29/2508/16 System, Provider Not In PCP - General 09/10/25 10/24/25 Dr. Chris Medel MD [address] [place] [address] PCP - General Primary Care 10/25/25 documented as of this encounter
--- OUTSIDE RECORDS SUMMARY | 2025-11-02 13:35 | XMS_ITS | Encounter Summary ---
Author Organization [facility] Address [address] [place] [address] Care Team Providers Care Space Control Agent Name Role Phone System, Provider Not [...] release of HIV test results or diagnoses. [id number] Health Encounter Details Date Type Department Care Team (Late st Contact Info) Description 10/24/2025 Chart [facility] Liver Transplant at [address] [place] [address] Pita Pike MA FK pend [facility] Social [...] Tacrolimus level (10/24/2025 7:23 AM EST) Pathologist [facility] Tacrolimus Lvl 6.4 6 - 15 ng/mL Whole Blood Result [facility] MD LAB BLOOD ORDERABLES Nadia l Result * (ABNORMAL) Renal Function Panel w/o EGFR (10/24/2025 7:23 AM EST) [facility] Glucose 100 BUN 16 CO2 28(A) 13 - 22 mmol/L Creatinine 0.90 Potassium 3.4 Sodium 136 Chloride 105 Phosphorus 3 2.5 - 4.9 mg/dL Calcium 7.7 EGFR 85 mg/dL Albumin 2.3(A) 3.5 - 5.0 g/dL Blood Result [facility] MD LAB BLOOD ORDERABLES Nadia l Result * Hepatic Function Panel (10/24/2025 7:23 AM EST) [facility] Bilirubin, Direct 0.4 Bilirubin, Indirect 0.6 Alkaline Phosphatase 149 ALT 210 AST 41 Total Bilirubin 1 Total Protein 4.8 Plasma Result [facility] MD LAB BLOOD ORDERABLES Nadia l Result * (ABNORMAL) CBC and differential (10/24/2025 7:23 AM EST) Pathologist [facility] Lymphocytes Absolute 0.8 / L [...] documented as of this encounter Care Teams Space Control Agent Relationship Specialty Start Date End Date System, Provider Not In PCP - General 09/10/25 10/24/25 Dr. Chris Medel MD [address] [address] [place] [address] PCP - General Primary Care 10/25/25 documented as of this encounter
--- OUTSIDE RECORDS SUMMARY | 2025-11-02 13:36 | XMS_ITS | Encounter Summary ---
Author Organization [facility] Address [address] [place] [address] Care Team Providers Care Pest Control Chemical Technician Name Role Phone Dr. Chris Medel MD [...] release of HIV test results or diagnoses. [id number] Reason for Referral * Physician/ELÍAS (Emergency) - No Authorization Required Specialty Diagnoses / Procedures Referred By Contac t Referred To Contact Urology Diagnoses S/P liver transplant ([facility]) Dark brown urine [facility] Liver Transplant at [address] [address] Phone: tel: fax: Referral ID Status Reason Start Date Expiration Date Visits Requested Visits Authorized [id number] No Authorization Required 05/01/2026 1 1 Scheduling Instructions For appointments, please call [phone]. Encounter Details Date Type Department Care Team (Late st Contact Info) Description 11/01/2025 Orders Only [facility] Liver Transplant at [address] [address] Ruma Benjamin RN S/P liver transplant (CMS-HCC) (Primary Dx); Dark brown urine Social History Tobacco Use Types Packs/Day Years [...] as of this encounter Progress Notes * Ruma Benjamin RN - 11/01/2025 4:00 PM ESTAddended by: MARIA L BENJAMIN on: 11/02/2025 12:34 PM Modules accepted: Orders documented in this encounter Plan of Treatment Scheduled Orders Name Type Priority Associated Diagnoses Orde r Schedule Urinalysis, Microscopic Lab Routine S/P liver transplant (CMS-HCC) Dark brown urine 1 Occurrences starting 11/01/2025 until 11/01/2026 Urine culture Microbiology Routine S/P liver transplant (CMS-HCC) Dark brown urine 1 Occurrences starting 11/01/2025 until 11/01/2026 Scheduled Referrals Name Type Priority Associated Diagnoses Orde r Schedule Hematuria (not UTI) Outpatient Referral STAT S/P liver transplant (CMS-HCC) Dark brown urine Ordered: 11/02/2025 documented as of this encounter Visit Diagnoses Diagnosis S/P liver transplant (CMS-HCC)- Primary Dark brown urine documented in this encounter Additional Health Concerns Assessment Noted Time PHQ-9 Depression Total Score: 8 09/10/20 25 11:09 AM EDT documented as of this encounter Care Teams Pest Control Chemical Technician Relationship Specialty Start Date End Date Dr. Chris Medel MD [address] [place] [address] PCP - General Primary Care 10/25/25 documented as of this encounter
--- OUTSIDE RECORDS SUMMARY | 2025-11-02 13:36 | XMS_ITS | Encounter Summary ---
Author Organization Healthcare Address [address] [place] [address] Care Team Providers Care Delivery And Mail Sorter Name Role Phone Ruma Hernández TELEVISION NEWS VIDEO EDITOR Unavailable [phone] Chris Medel MD Primary Care Provider [phone] Encounter Details Date Type Department Care Team (Late st Contact Info) Description 09/12/2025 Results Follow-Up [facility] [address] [place] [id number] Meaghan Le, RN [facility] LIVER [id number] [address] [place] [address] Social History Tobacco Use Types Packs/Day Years [...] week 02/19/2025 How often do you attend [facility] or mandaen services? More than 4 times per year 02/19/2025 Do you belong to any clubs o r organizations such as mormonism groups, unions, [employer] or athletic groups, or school groups? Yes [...] and heating? Not hard at all 06/15/2025 [facility] - Occupational [...] drink first t luisa in the morning (EYE-PRINCIPAL QUALITY ENGINEER) to steady your nerves or to get rid of a hangover? 0 06/14/2025 CAGE Questionnaire Score 0 025 Utilities Answer Date Recorded In the past 12 months has th e [employer], gas, oil, or water [employer] threatened [...] E [facility], [address] [place] [address] Suhail Brock MD [address] [facility] [address] [place] [address] 01/24/2026 4:40 PM EDT Office Visit [facility] [address] [facility], [address] [place] [address] Moustapha Katz MD [address] [facility] [address] [place] [address] documented as of this encounter [...] of this encounter Care Teams Delivery And Mail Sorter Relationship Specialty [place] [address] PCP - General 03/14/25 Ruma Hernández APRN [address] [place] [address] [address] [place] [address] Referring Physician Gastroenterology 07/30/23 documented as of this encounter
--- OUTSIDE RECORDS SUMMARY | 2025-11-02 13:36 | XMS_ITS | Encounter Summary ---
Author Organization Healthcare Address [address] [place] [address] Care Team Providers Care Railroad Car Checker Name Role Phone Urban Brantley DO Primary Care Provider [phone] Ruma Hernández ASSISTANT DIRECTOR OF PUBLIC WORKS Unavailable [phone] Chris Medel MD Primary Care Provider [phone] Encounter Details Date Type Department Care Team (Late st Contact Info) Description 12/30/2023 Orders Only External Location [address] [place] [address] Urban Stafford MD 1210 [facility] [address] [place] [address] Social History Tobacco Use Types Packs/Day [...] [facility], [address] [place] [address] Suhail Brock MD [address] [place] [address] 01/24/2026 4:40 PM EDT Office Visit [facility] [address] [facility], [address] [place] [address] Moustapha Katz MD [address] [facility] [address] [place] [address] documented as of this [...] documented as of this encounter Care Teams Railroad Car Checker Relationship Specialty Start Date End Date Urban Brantley DO [address] [place] [address] PCP - General 07/30/23 03/13/25 [place] [address] PCP - General 03/14/25 Ruma Hernández APRN [address] [place] [address] Referring Physician Gastroenterology 07/30/23 documented as of this encounter
--- OUTSIDE RECORDS SUMMARY | 2025-11-02 13:36 | XMS_ITS | Encounter Summary ---
Author Organization [facility] Address [address] [place] [address] Care Team Providers Care Physicist Light And Optics Name Role Phone System, Provider Not In [...] release of HIV test results or diagnoses. [id number] Health Encounter Details Date Type Department Care Team (Late st Contact Info) Description 09/11/2025 Telephone [facility] Liver Transplant at [address] [address] Chapito Alcantar RN Social History Tobacco Use [...] documented as of this encounter Care Teams Physicist Light And Optics Relationship Specialty Start Date End Date System, Provider Not In PCP - General 09/10/25 10/24/25 documented as of this encounter
--- OUTSIDE RECORDS SUMMARY | 2025-11-02 13:36 | XMS_ITS | Encounter Summary ---
Author Organization Healthcare Address [address] [place] [address] Care Team Providers Care Housekeeping Supervisor Hotel Name Role Phone Ruma Hernández FACTORY WORKER Unavailable Chris Medel MD Primary Care Provider [phone] Encounter Details Date Type Department Care Team (Late st Contact Info) Description 08/29/2025 Orders Only [facility] [address], [address] [place] [address] Provider, [place] [address] [address] [place] [id number] Social History Tobacco Use Types Packs/Day Years [...] [facility] you attend [facility] or [facility] services? More than 4 times per year 02/19/2025 Do you belong to any clubs o r organizations such as mosque groups, unions, [employer] or athletic groups, or school groups? [...] at all 06/15/2025 [facility] - Occupational Stress [...] drink first t luisa in the morning (EYE-EMD TEACHER) to steady your nerves or to get rid of a hangover? 0 06/14/2025 CAGE Questionnaire Score 0 025 Utilities Answer Date Recorded In the past 12 months has th e [employer], gas, oil, or water [employer] threatened to shut off services in [...] Medical Office Building Urology [address] [facility], [address] [place] [address] Suhail Brock MD [address] [facility] [address] [place] [address] 01/24/2026 4:40 PM EDT Office Visit [facility] [address] [facility], [address] [place] [address] Moustapha Katz MD [address] [facility] [address] [place] [address] documented as of this encounter Procedures Procedure Name Priority Date/Time Associated Diagnosis Comments COMPLETE METABOLIC PROFILE (CMP) Routine 08/29/2025 12:13 PM EDT PROTHROMBIN TIME(PT) / INR Routine 08/29/2025 11:11 AM EDT CBC WITH AUTO DIFFERENTIAL Routine 08/29/2025 11:11 AM EDT documented in this encounter Results * COMPLETE METABOLIC PROFILE (CMP) (08/29/2025 12:13 PM EDT) [facility] Provider LAB BLOOD ORDERABLES Final R esult * Prothrombin Time/INR (08/29/2025 11:11 AM EDT) Blood Venous blood specimen / Unknown [facility] Provider LAB BLOOD ORDERABLES Final R esult * CBC and Differential (08/29/2025 11:11 AM EDT) Blood Venous blood specimen / Unknown Result [facility] Provider LAB BLOOD ORDERABLES Final R [...] documented as of this encounter Care Teams Housekeeping Supervisor Hotel Relationship Specialty [place] [address] PCP - General 03/14/25 Ruma Hernández APRN [address] [address] Referring Physician Gastroenterology 07/30/23 documented as of this encounter
--- OUTSIDE RECORDS SUMMARY | 2025-11-02 13:36 | XMS_ITS | Encounter Summary ---
Author Organization Healthcare Address [address] [place] [address] Care Team Providers Care Music Internship Name Role Phone Urban Brantley DO Primary Care Provider [phone] Ruma Hernández ABSORPTION PLANT OPERATOR HELPER Unavailable [phone] Chris Medel MD Primary Care Provider [phone] Encounter Details Date Type Department Care Team (Late Contact Info) Description 03/22/2023 Orders Only External Location [address] [place] [address] Provider, External Social History Tobacco Use Types [...] E [facility], [address] [place] [address] Suhail Brock MD [address] [place] [address] 01/24/2026 4:40 PM EDT Office Visit Professional [employer] [place] [facility] [address] [facility], [address] [place] [address] Moustapha Katz MD [address] [facility] [address] [place] [address] documented as of this encounter [...] documented as of this encounter Care Teams Music Internship Relationship Specialty Start Date End Date Urban Brantley DO [address] [place] [address] PCP - General 07/30/23 03/13/25 [place] [address] PCP - General 03/14/25 Ruma Hernández APRN [address] [facility] [address] [place], [place] [address] Referring Physician Gastroenterology 07/30/23 documented as of this encounter
--- OUTSIDE RECORDS SUMMARY | 2025-11-02 13:36 | XMS_ITS | Encounter Summary ---
Author Organization [facility] Address [address] [place] [address] Care Team Providers Care Remnants Cutter Name Role Phone System, Provider Not [...] release of HIV test results or diagnoses. [id number] Health Encounter Details Date Type Department Care Team (Late st Contact Info) Description 09/17/2025 Refill [facility] [address] [facility] [place] [phone] Johnny Dubois RN Social History Tobacco Use [...] medication will need to be sent to [facility] pharmacy to be filled. Gave [facility] pharmacy phonenumber to call about getting medication mailed to their house possibly. documented in this encounter Plan of Treatment Not on file documented as of this encounter Visit Diagnoses Not on filedocumented in this encounter Additional Health Concerns Assessment Noted Time PHQ-9 Depression Total Score: 8 09/10/20 25 11:09 AM EDT documented as of this encounter Care Teams Remnants Cutter Relationship Specialty Start Date End Date System, Provider Not In PCP - General 09/10/25 10/24/25 documented as of this encounter
--- OUTSIDE RECORDS SUMMARY | 2025-11-02 13:36 | XMS_ITS | Encounter Summary ---
Author Organization [facility] Address [address] [place] [address] Care Team Providers Care State Trooper Name Role Phone Dr. Chris Medel MD [...] release of HIV test results or diagnoses. [id number] Health Encounter Details Date Type Department Care Team (Late st Contact Info) Description 11/02/2025 Telephone [facility] Liver Transplant at [address] [address] Nina Hawkins MA Social History Tobacco Use Types Packs/Day [...] the past 12 months has th e [employer], gas, oil, or water [employer] threatened to shut off services in your home? No 10/17/2025 Sex and Gender Information Value Date Recorded Sex Assigned at Not on file Legal Sex Male 3:33 PM EDT Gender Identity Not on file Sexual Orientation Not on file documented as of this encounter Progress Notes * Nina Hawkins MA - 11/02/2025 12:45 PM EST Incoming call from spouse, Stacy expressing concern of the red color of his urine. States it has been going on for a few days now. Pt denies having any symptoms. Spouse is willing to take patient to the lab today to have a urine collection. Coordinated with CC SILVIO Iglesias. Kelise has placed urine orders and would like him to get a sample today. She also placed a urology referral. Verbalized both to spouse. Spouse states they will go today and she will call urology today as well. Urology number given. No other immediate needs. documented in this encounter Plan of Treatment Not on file documented as of this encounter Visit Diagnoses Not on filedocumented in this encounter Additional Health Concerns Assessment Noted Time PHQ-9 Depression Total Score: 8 09/10/20 25 11:09 AM EDT documented as of this encounter Care Teams State Trooper Relationship Specialty Start Date End Date Dr. Chris Medel MD [address] [place] [address] PCP - General Primary Care 10/25/25 documented as of this encounter
--- OUTSIDE RECORDS SUMMARY | 2025-11-02 13:36 | XMS_ITS | Encounter Summary ---
Author Organization Healthcare Address [address] [place] [address] Care Team Providers Care Waistband Setter Lockstitch Name Role Phone Urban Brantley DO Primary Care Provider [phone] Ruma Hernández FLY MAKER Unavailable [phone] Chris Medel MD Primary Care Provider [phone] Encounter Details Date Type Department Care Team (Late Contact Info) Description 03/22/2023 Orders Only External Location [address] [place] [address] Provider, External Social History Tobacco Use Types [...] E [facility], [address] [place] [address] Suhail Brock MD [address] [place] [address] 01/24/2026 4:40 PM EDT Office Visit Professional [facility] [address] [facility], [address] [place] [address] Moustapha Katz MD [address] [facility] [address] [place] [address] documented as [...] documented as of this encounter Care Teams Waistband Setter Lockstitch Relationship Specialty Start Date End Date Urban Brantley DO [address] [place], [place] [id number] PCP - General 07/30/23 03/13/25 [place] [address] PCP - General 03/14/25 Ruma Hernández APRN 1780 [facility] [address] [place], [place] [address] Referring Physician Gastroenterology 07/30/23 documented as of this encounter
--- OUTSIDE RECORDS SUMMARY | 2025-11-02 13:36 | XMS_ITS | Encounter Summary ---
Author Organization Healthcare Address [address] [place] [address] Care Team Providers Care Cloth Bin Packer Name Role Phone Ruma Hernández PHYSIATRIST Unavailable [phone] Chris Medel MD Primary Care Provider [phone] Encounter Details Date Type Department Care Team [...] 06/15/2025 How often do you attend [facility] or rastafari services? More than 4 [...] hard at all 06/15/2025 [facility] [place] of Occupat ional Health - Occupational Stress [...] drink first t luisa in the morning (EYE-RATE SETTER) to steady your nerves or to get [...] Upcoming Encounters Date Type Department Care Team ([facility] st Contact Info) Description 11/27/2025 3:45 PM EST Office Visit Medical Office Building Urology [address] [facility], [address] [place] [address] Suhail Brock MD [address] [place] [address] 01/24/2026 4:40 PM EDT Office Visit Professional [employer] [place] [facility] [address] [facility], [address] [place] [address] Moustapha Katz MD [address] [facility] [address] [place] [address] documented as of this encounter [...] as of this encounter Care Teams Cloth Bin Packer Relationship Specialty [place] [address] PCP - General 03/14/25 Ruma Hernández APRN [address] [place] [address] Referring Physician Gastroenterology 07/30/23 documented as of this encounter
--- OUTSIDE RECORDS SUMMARY | 2025-11-02 13:36 | XMS_ITS | Encounter Summary ---
Author Organization [facility] Address [address] [place] [address] Care Team Providers Care Pot Runner Name Role Phone System, Provider Not [...] release of HIV test results or diagnoses. [id number] [place] Reason for Visit * Reason Comments Prior Authorization Encounter Details Date Type Department Care Team (Late st Contact Info) Description 09/18/2025 Pharmacy Services [facility] [place] [facility] [address] [place] [address] Delaney Bahena RXT Social History Tobacco Use [...] as of this encounter Functional Status * RX Prior Auth Question Answer Date of Assessment Author Prior Authorization Notification Method Pharmacy 09/18/2025 11:18 AM EST Delaney Bahena RXT Cover My Meds Gomez (requires 6 or 8 digit gomez, if available) [id number] 09/18/2025 11:18 AM Delaney Henderson RXT Medication Requiring Prior Authorization ivermectin 3mg TAB 09/18/2025 11:18 AM Delaney Henderson RXT Dosage and Quantity per Day Supply 21mg/ #14 per 12 days 09/18/2025 11:18 AM Delaney Henderson RXT Provider/Service/Location [facility] 2024 11:18 AM Delaney Henderson RXT Insurance Type/Name [employer] 09/18/2025 1 1:18 AM Delaney Henderson RXT Documentation Submitted Diagnosis Code;C [place] Note(s) 09/18/2025 11:18 AM Delaney Henderson RXT Dispensing Pharmacy [facility] [place] [facility] 11:18 AM Delaney Henderson RXT Prior Authorization Status Submitted via Cover [employer] 09/18/2025 11:18 AM Delaney Henderson RXT Prior Authorization Determination Approved 09/18/2025 11:18 AM Delaney Henderson RXT Approval Number [place] Case: [id number] 09/18/2025 11 :18 AM Delaney Henderson, RXT Prior Authorization Expiration Date 09/18/2026 09/18/2025 11:18 AM Delaney Henderson RXT Patient Copay Responsibility, if known $0 09/18/2025 11:18 AM Delaney Henderson RXT documented as of this encounter Plan of Treatment Not on file documented as of this encounter Visit Diagnoses Not on filedocumented in this encounter Additional Health Concerns Assessment Noted Time PHQ-9 Depression Total Score: 8 09/10/20 11:09 AM EDT documented as of this encounter Care Teams Pot Runner Relationship Specialty Start Date End Date System, Provider Not In PCP - General 09/10/25 10/24/25 documented as of this encounter
--- OUTSIDE RECORDS SUMMARY | 2025-11-02 13:36 | XMS_ITS | Encounter Summary ---
Author Organization [facility] Address [address] [place] [address] Care Team Providers Care Manager Special Events Name Role Phone Dr. Chris Medel MD [...] release of HIV test results or diagnoses. [id number] Health Encounter Details Date Type Department Care Team (Late st Contact Info) Description 10/25/2025 Telephone [facility] Liver Transplant at [address] [address] Giovanna June RN Social History [...] the past 12 months has th e [employer], gas, oil, or water [employer] threatened to shut off services in your [...] as of this encounter Care Teams Manager Special Events Relationship Specialty Start Date End Date Dr. Chris Medel MD [address] [place] [address] PCP - General Primary Care 10/25/25 documented as of this encounter
--- OUTSIDE RECORDS SUMMARY | 2025-11-02 13:36 | XMS_ITS | Encounter Summary ---
Author Organization Healthcare Address [address] [place] [address] Care Team Providers Care Boarding Room Fixer Name Role Phone Urban Brantley DO Primary Care Provider [phone] Ruma Hernández PAIL BAILER Unavailable [phone] Chris Medel MD Primary Care Provider [phone] Encounter Details Date Type Department Care Team (Late Contact Info) Description 05/09/2023 Orders Only External Location [address] [place] [address] Provider, External Social History Tobacco Use Types [...] E [facility], [address] [place] [address] Suhail Brock MD [address] [place] [address] 01/24/2026 4:40 PM EDT Office Visit Professional [employer] [place] [facility] [address] [facility], [address] [place] [address] Moustapha Katz MD [address] [facility] [address] [place] [address] documented as of this encounter [...] documented as of this encounter Care Teams Boarding Room Fixer Relationship Specialty Start Date End Date Urban Brantley DO [address] [place] [address] PCP - General 07/30/23 03/13/25 [place] [address] PCP - General 03/14/25 Ruma Hernández APRN 1780 [facility] [address] [place], [place] [address] Referring Physician Gastroenterology 07/30/23 documented as of this encounter
--- OUTSIDE RECORDS SUMMARY | 2025-11-02 13:36 | XMS_ITS | Encounter Summary ---
Author Organization Healthcare Address [address] [place] [address] Care Team Providers Care Answering Service Telephone Operator Name Role Phone Ruma Hernández HOME THEATER EXPERT Unavailable [phone] Chris Medel MD Primary Care Provider [phone] Encounter Details Date Type Department Care Team [...] 06/15/2025 How often do you attend [facility] or oriental orthodox services? More than [...] heating? Not hard at all 06/15/2025 [facility] [place] of Occupat ional Health - Occupational Stress [...] drink first t luisa in the morning (EYE-LADLER) to steady your nerves or to get [...] Not at all 09/12/2025 8:14 AM EDT Audei Atkinson Patient Health Questionnaire -2 Score 0 09/12/2025 8:14 AM EDT Audie Atkinson documented as of this encounter Plan of Treatment Upcoming Encounters Date Type Department Care Team (Late st Contact Info) Description 11/27/2025 3:45 PM EST Office Visit Medical Office Building Urology [address] [facility], [address] [place] [address] Suhail Brock MD [address] [facility] [address] [place] [address] 01/24/2026 4:40 PM EDT Office Visit Professional [facility] [address] [facility], [address] [place] [address] Moustapha Katz MD [address] [facility] [address] [place] [address] documented as of this encounter [...] documented as of this encounter Care Teams Answering Service Telephone Operator Relationship Specialty [place] [address] PCP - General 03/14/25 Ruma Hernández APRN [address] [place] [address] Referring Physician Gastroenterology 07/30/23 documented as of this encounter
--- OUTSIDE RECORDS SUMMARY | 2025-11-02 13:36 | XMS_ITS ---
Author Organization [facility] Address [address] [place] [address] Care Team Providers Care Cattle Dipper Name Role Phone Dr. Chris Medel MD Primary Care Provider + Transplant Episode Liver Recipient [facility] ([place], [place]) - [facility] Organ Received: Liver Transplanted on 10/17/2025 Marked as Active Follow-up on 10/17/2025 Liver CoordinatorRuma Benjamin RN Phone: N/A Fax: N/A Email: N/A [place] Organ Diagnosis Organ Primary Contributory Liver Acute [...] EBV IgM EBV VCA IgM: Negative HBsAb HBsAb: Not Done EBNA EBNA IgG: Positive EBNA IgM: Negative Care Team Name Role Phone Fax Email Ruma Benjamin RN Liver Coordinator N/A N/ A N/A Chapito Alcantar RN Txp Pre Coordinator N/A N/A N/A Vani Drew MD Txp Surgeon [phone] N/A Portia Maguire Referring Physician [phone] N/A Michelle Ho MSW, TANK TRUCK OPERATOR Txp Media Relations Director N/A N/A N/A Ruma Benjamin RN Txp Post Coordinator N/A N/A N/A Events Post-Transplant Pre-Transplant Admitted: 10/17/2025 Referred: 08/02/2025 Transplanted: 10/17/2025 Evaluation began: 5 Discharged: 10/22/2025 Committee: 09/11/2025 Center waitlisted: 5 Appointments (10/03/2025 - 12/03/2025) When With Visit Type Description 10/30/2025 Txp Hep - Erasmo, A Established Patient Enc ounter for therapeutic drug level monitoring (Primary Dx); Liver replaced by transplant (CMS-HCC); Immunosuppression (CMS-HCC); Immunosuppressive management encounter following liver transplant (CMS-HCC)
--- OUTSIDE RECORDS SUMMARY | 2025-11-02 13:36 | XMS_ITS | Encounter Summary ---
Author Organization [facility] Address [address] [place] [address] Care Team Providers Care Assistant Track Coach Name Role Phone System, Provider Not In [...] release of HIV test results or diagnoses. [id number] Health Encounter Details Date Type Department Care Team (Late st Contact Info) Description 09/11/2025 Telephone [facility] Liver Transplant at [address] [address] Chapito Alcantar, SILVIO Social History Tobacco Use [...] as of this encounter Care Teams Assistant Track Coach Relationship Specialty Start Date End Date System, Provider Not In PCP - General 09/10/25 10/24/25 documented as of this encounter
--- OUTSIDE RECORDS SUMMARY | 2025-11-02 13:36 | XMS_ITS | Encounter Summary ---
Author Organization [facility] Address [address] [place] [address] Care Team Providers Care Hydrological Technical Officer Name Role Phone System, Provider Not [...] release of HIV test results or diagnoses. [id number] Health Encounter Details Date Type Department Care Team (Late st Contact Info) Description 09/13/2025 Chart Note [facility] Liver Transplant at [address] [phone] Chapito Alcantar RN Multi-disciplinary Hepatobiliary Case Conference [...] documented as of this encounter Care Teams Hydrological Technical Officer Relationship Specialty Start Date End Date System, Provider Not In PCP - General 09/10/25 10/24/25 documented as of this encounter
--- OUTSIDE RECORDS SUMMARY | 2025-11-02 13:36 | XMS_ITS | Encounter Summary ---
Author Organization [facility] Address [address] [place] [address] Care Team Providers Care Lathe Machine Operator Name Role Phone Dr. Chris [...] release of HIV test results or diagnoses. [id number] Health Encounter Details Date Type Department Care Team (Late st Contact Info) Description 11/02/2025 Chart Note [facility] Liver Transplant at [address] [place] [phone] Pita Pike MA Social History Tobacco Use [...] the past 12 months has th e [employer], gas, oil, or water company threatened to [...] Associated Diagnosis Comments HEPATIC FUNCTION PANEL Routine 11/01/2025 7:05 AM EST CBC AND DIFFERENTIAL Routine 11/01/2025 7:05 AM EST RENAL FUNCTION PANEL W/O EGFR Routine 11/01/2025 7:05 AM EST documented in this encounter Results * (ABNORMAL) Renal Function Panel w/o EGFR (11/01/2025 7:05 AM EST) BUN 24 CO2 27(A) 13 - 22 mmol/L Creatinine 0.90 Potassium 4.3 Sodium 132 Chloride 104 Phosphorus 3.1 2.5 - 4.9 mg/dL Calcium 8.1 EGFR 85 mg/dL Albumin 2.9(A) 3.5 - 5.0 g/dL Blood Result [facility] Provider LAB BLOOD ORDERABLES Nadia l Result * (ABNORMAL) CBC and differential (11/01/2025 7:05 AM EST) Hemoglobin 7.7(A) 13.5 - 17.5 g/dL Hematocrit [...] 5.90 10^6/ L WBC 13.2 10^3/mL Blood Result [facility] Provider LAB BLOOD ORDERABLES Nadia l Result * Hepatic Function Panel (11/01/2025 7:05 AM EST) Bilirubin, Direct 4.8 Alkaline Phosphatase 335 ALT 96 AST 87 Total Bilirubin 7.4 Total Protein 5.7 Plasma Result [facility] Historical Provider LAB BLOOD ORDERABLES Nadia l Result documented in this encounter Visit Diagnoses Not on filedocumented in this encounter Additional Health Concerns Assessment Noted Time PHQ-9 Depression Total Score: 8 09/10/20 25 11:09 AM EDT documented as of this encounter Care Teams Lathe Machine Operator Relationship Specialty Start Date End Date Dr. Chris Medel MD [address] [place] [address] PCP - General Primary Care 10/25/25 documented as of this encounter
--- OUTSIDE RECORDS SUMMARY | 2025-11-02 13:36 | XMS_ITS | Encounter Summary ---
Author Organization [facility] Address [address] [place] [address] Care Team Providers Care Side Door Worker Name Role Phone Dr. Chris Medel MD [...] release of HIV test results or diagnoses. [id number] Reason for Visit * Reason Comments Results Critical Lab Results Encounter Details Date Type Department Care Team ([facility] Contact Info) Description 11/02/2025 Telephone [facility] Liver Transplant at [address] [phone] Ruma Benjamin RN Results; Critical Lab Results Social History Tobacco Use Types Packs/Day [...] Telephone Encounter - Ruma Benjamin RN - 11/02/2025 1:07 PM EST Lab results from 11/01/25 reviewed. Cr 0.90 (from 0.90); BUN 24 (from 17). AST 87 (from 39) ALT 96 (from 88) Alk Phos 335 (from 281) PENDING FK level Latest Reference Range & Units 10/29/25 07:49 10/30/25 08:07 11/01/25 07:05 Bili, Total 0.0 - 1.5 mg/dL 1.4 (E) 2.4 (H) 7.4 (E) Bilirubin, Direct 0.00 - 0.40 mg/dL 0.7 (E) 1.36 (H) 4.8 (E) (H): Data is abnormally high (E): External lab result Current ISP: FK 5mg BID MMF 500mg BID Pred 20mg daily Will route to Txp Provider for further review and recommendations. documented in this encounter Plan of Treatment Not on file documented as of this encounter Visit Diagnoses Not on filedocumented in this encounter Additional Health Concerns Assessment Noted Time PHQ-9 Depression Total Score: 8 09/10/20 11:09 AM EDT documented as of this encounter Care Teams Side Door Worker Relationship Specialty Start Date End Date Dr. Chris Medel MD [address] [place] [address] PCP - General Primary Care 10/25/25 documented as of this encounter
--- OUTSIDE RECORDS SUMMARY | 2025-11-02 13:36 | XMS_ITS | Encounter Summary ---
Author Organization [facility] Address [address] [place] [address] Care Team Providers Care Hired Help Name Role Phone Dr. Chris Medel MD [...] release of HIV test results or diagnoses. [id number] Health Encounter Details Date Type Department Care Team (Late st Contact Info) Description 11/02/2025 Telephone [facility] Liver Transplant at [address] [place] [phone] Pita Pike MA Social History Tobacco [...] Progress Notes * Pita Pike MA - 11/02/2025 1:06 PM EST Opened in error documented in this encounter Plan of Treatment Not on file documented as of this encounter Visit Diagnoses Not on filedocumented in this encounter Additional Health Concerns Assessment Noted Time PHQ-9 Depression Total Score: 8 09/10/20 11:09 AM EDT documented as of this encounter Care Teams Hired Help Relationship Specialty Start Date End Date Dr. Chris Medel MD [address] [facility] [place] [address] PCP - General Primary Care 10/25/25 documented as of this encounter
--- OUTSIDE RECORDS SUMMARY | 2025-11-02 13:36 | XMS_ITS | Encounter Summary ---
Author Organization [facility] Address [address] [place] [address] Care Team Providers Care Wharf Worker Name Role Phone System, Provider Not [...] release of HIV test results or diagnoses. [id number] Health Encounter Details Date Type Department Care Team (Late st Contact Info) Description 09/10/2025 [facility] Kidney Transplant at [address] [phone] Social History Tobacco Use [...] 2.1 (L) 09/10/2025 No results found for: [id number] PMH: Past Medical History: Diagnosis Date Epididymitis [...] Dietitian - Solid Organ Transplant Contact via [employer] Chat [1] Allergies Allergen Reactions Lisinopril Other (See Comments) documented in this encounter Plan of Treatment Not on file documented as of this encounter Visit Diagnoses Not on filedocumented in this encounter Additional Health Concerns Assessment Noted Time PHQ-9 Depression Total Score: 8 09/10/20 11:09 AM EDT documented as of this encounter Care Teams Wharf Worker Relationship Specialty Start Date End Date System, Provider Not In PCP - General 09/10/25 10/24/25 documented as of this encounter
--- OUTSIDE RECORDS SUMMARY | 2025-11-02 13:36 | XMS_ITS ---
Author Organization [facility] Address [address] 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
--- OUTSIDE RECORDS SUMMARY | 2025-11-02 13:36 | XMS_ITS | Encounter Summary ---
Author Organization [facility] Address [address] [place] [address] Care Team Providers Care Physician Office Rep Name Role Phone System, Provider Not [...] release of HIV test results or diagnoses. [id number] Health Encounter Details Date Type Department Care Team (Late st Contact Info) Description 09/10/2025 Social Work [facility] Liver Transplant at [address] [phone] Michelle Ho MSW, TONYA Social History Tobacco Use Types Packs/Day Years [...] as of this encounter Functional Status * PHQ-9 Total Score Answer Date of Assessment Author 8 09/10/2025 11:09 AM EDT Michelle Ho MSW, TONYA * CLAUDIA-2 Total Score Answer Date of Assessment Author 0 09/10/2025 11:09 AM EDT Michelle Ho MSW, LSW documented as of this encounter Progress Notes * MADHAV Arias, TONYA - 09/10/2025 11:59 PM EDT TRANSPLANT PSYCHOSOCIAL ASSESSMENT Support Persons: Stacy Pop (): [phone] Daniel (brother) Gloria (daughter) Urban Patterson (neighbor) Lan (son): [phone] Past and Current Life / Social Situation: [...] at [employer]. He does not have any baptism, ethnic, or personal objections to accepting blood [...] Score 8 GAD7 Scores: 09/10/2025 11:09 AM [id number] Score CLAUDIA-7 Total Score 1 Reviewed results [...] discussed the patient's psychosocial evaluation with the practice coordinator (Ezekiel Alcantar). The patient participated in [...] number for additional needs. MADHAV Arias, TONYA [phone] TRANSPLANT PSYCH NOTEWRITER: [facility] Clinic Entry Point: [address] [facility] Social Work Assessment: 01 New Patient SW [...] as of this encounter Care Teams Physician Office Rep Relationship Specialty Start Date End Date System, Provider Not In PCP - General 09/10/25 10/24/25 documented as of this encounter
--- OUTSIDE RECORDS SUMMARY | 2025-11-02 13:36 | XMS_ITS | Encounter Summary ---
Author Organization [facility] Address [address] [place] [address] Care Team Providers Care Director Service Name Role Phone System, Provider Not In [...] release of HIV test results or diagnoses. [id number] Health Encounter Details Date Type Department Care Team (Late st Contact Info) Description 09/11/2025 Chart Note [facility] Kidney Transplant at [address] [phone] Ailin Wells Faxed Clinical for Listing/Txp Auth [...] Auth Organ: liver Listed Date: TBD Ins: [place] [employer] Transfer Station Attendant: pending documented in this encounter Plan of Treatment Not on file documented as of this encounter Visit Diagnoses Not on filedocumented in this encounter Additional Health Concerns Assessment Noted Time PHQ-9 Depression Total Score: 8 09/10/20 25 11:09 AM EDT documented as of this encounter Care Teams Director Service Relationship Specialty Start Date End Date System, Provider Not In PCP - General 09/10/25 10/24/25 documented as of this encounter
--- OUTSIDE RECORDS SUMMARY | 2025-11-02 13:36 | XMS_ITS | Encounter Summary ---
Author Organization [facility] Address [address] [place] [address] Care Team Providers Care Delimer Name Role Phone System, Provider Not In [...] release of HIV test results or diagnoses. [id number] Health Encounter Details Date Type Department Care Team (Late st Contact Info) Description 09/10/2025 Chart Note [facility] Liver Transplant at [address] [phone] Chapito Alcantar RN Alcoholic cirrhosis of liver [...] Alcantar RN - 09/10/2025 9:11 AM EDT [place] tab updated documented in this encounter Plan [...] QT: 464 ms QTc: 478 ms P Bim: 27 degrees R Bim: 58 degrees T Bim: 22 degrees Diagnosis Line: NORMAL SINUS RHYTHM ^ NORMAL ECG ^ No previous ECGs available ^ Confirmed by MD TIP, [facility] ([id number]) on 09/10/2025 3:28:36 PM [...] 18.2 Plasma Historical Provider LAB BLOOD ORDERABLES Ndaia l Result * Hepatic Function Panel (08/29/2025) [...] documented as of this encounter Care Teams Delimer Relationship Specialty Start Date End Date System, Provider Not In PCP - General 09/10/25 10/24/25 documented as of this encounter
[2025-11-02 15:13] LABS: Color,Urine YELLOW (Yellow); Glucose,Urine (UA) Negative (Negative); Ketones,Urine Negative (Negative); Leukocyte Esterase,Urine 2+ (Negative); PH,Urine 5.0 (5.0-8.5); Protein,Urine 2+ (Negative); Specific Gravity, Urine 1.015 (1.005-1.030); Urobilinogen,Urine 1.0 EU/dl (0.2)
[2025-11-02 15:36] LABS: Bilirubin,Urine 3+ (Negative)
[2025-11-02 15:42] LABS: Bacteria,Urine 1+ /lpf; RBC,Urine Occasional #/hpf (0-3); Squamous Epithelial Cell,Urine Occasional #/hpf (0-5)
== END 2025-11-02 23:59 | disposition home or self-care (01) ==
LOC: LAB 13:28
PROVIDERS: PCP Family Medicine; Visit Provider Surgery
DX: R82.998 Other abnormal findings in urine (principal); Z94.4 Liver transplant status
CPT/HCPCS: 81001; 87086

== ENCOUNTER 2025-11-12 07:09 | Outpatient (CLI) | payer BC, SELFPAY ==
--- OUTSIDE RECORDS SUMMARY | 2023-08-27 07:34 | XMS_ITS | Encounter Summary ---
[facility] [address] [place] [address] Care Team Providers Care Supervisor Assembly Room Name Role Phone Karon Urban Jc DO Primary Care Provider +1 -[phone] Encounter Details Date Type Department Care Team (Late st Contact Info) Description 08/27/2023 8:34 AM EDT Hospital Encounter [facility] PULMONARY & CRITICAL CARE MEDICINE [address] [place] [phone] Social History Tobacco Use Types Packs/Day [...] on filedocumented in this encounter Care Teams Supervisor Assembly Room Relationship Specialty Start Date End Date Urban Brantley DO [address] [place] [address] [place] [address] PCP - General Internal Medicine 03/22/23 documented as of this encounter
--- OUTSIDE RECORDS SUMMARY | 2025-09-10 12:30 | XMS_ITS | Encounter Summary ---
Author Organization [facility] Address [address] [place] [address] Care Team Providers Care Sap Technical Architect Name Role Phone System, Provider Not In [...] release of HIV test results or diagnoses. [id number] Health Encounter Details Date Type Department Care Team (Late st Contact Info) Description 09/10/2025 1:30 PM EDT Office Visit [facility] Liver Transplant at [address] [address] [address] Troy MD [facility] [place] [address] Alcoholic cirrhosis of liver with [...] Strain: Low Risk (06/15/2025) Received from [facility] Overall Financial Resource Strain (CARDIA) How hard is it for you to pay for the very basics like food, housing, medical care, and heating?: Not hard at all Food Insecurity: No Food Insecurity (06/15/2025) Received from [facility] Hunger Vital Sign Worried About Running Out of Food in the Last Year: Never true Ran Out of Food in the Last Year: Never true Transportation Needs: No Transportation Needs (06/15/2025) Received from [facility] PRAPARE - Transportation In the past 12 months, has lack of transportation kept you from medical appointments or from getting medications?: No In the past 12 months, has lack of transportation kept you from meetings, work, or from getting things needed for daily living?: No Physical Activity: Inactive (06/15/2025) Received from [facility] Exercise Vital Sign Days of Exercise per Week: 0 days Minutes of Exercise per Session: 0 min Stress: No Stress Concern Present (06/15/2025) Received from [facility] [place] of Occupational Health - Occupational Stress Questionnaire Do you feel stress - tense, restless, nervous, or anxious, or unable to sleep at night because yourmind is troubled all the time - these days?: Only a little Social Connections: Socially Integrated (06/15/2025) Received from [facility] Social Connection and Isolation Panel [NHANES] Frequency of Communication with Friends and Family: More than three times a week Frequency of Social Gatherings with Friends and Family: More than three times a week Attends Hinduism Services: More than 4 times per year Active Member of Clubs or Organizations: Yes Attends Club or Organization Meetings: Not on file Marital Status: Intimate Partner Violence: Not At Risk (06/15/2025) Received from [facility] Humiliation, Afraid, Rape, and Kick questionnaire Fear of Current or Ex-Partner: No Emotionally Abused: No Physically Abused: No Sexually Abused: No Housing Stability: Low Risk (06/15/2025) Received from [facility] Housing Stability Vital Sign Unable [...] further review Use and allocation of SCD, FERRULER, DCD and LDLT allografts discussed in detail. [...] in a facility that is approved by [facility] as meeting institutional coverage criteria for [...] from surgery (5%). I also explained the senior living risks of transplantation and immunosuppression including viral infection and cancer both solid organand lymphoma. --- Lane Troy MD Transplant Reserve Officervalve seater operator Section of Transplantation [facility] [1] Allergies Allergen Reactions Lisinopril Other [...] documented as of this encounter Care Teams Sap Technical Architect Relationship Specialty Start Date End Date System, Provider Not In PCP - General 09/10/25 10/24/25 documented as of this encounter
--- OUTSIDE RECORDS SUMMARY | 2025-09-10 13:00 | XMS_ITS | Encounter Summary ---
Author Organization [facility] Address [address] [place] [id number] Care Team Providers Care Boarder Hand Name Role Phone System, Provider Not In [...] release of HIV test results or diagnoses. [id number] Reason for Visit * Reason Comments ID Consult Visit (Follow Up) Liver Transplant Pre-evaluation Encounter Details Date Type Department Care Team (Late st Contact Info) Description 09/10/2025 2:00 PM EDT Office Visit [facility] Liver Transplant at [address] [phone] Unknown, Attending Provider Navi Sims MD [address] [place] [phone] Pre-transplant evaluation for chronic liver disease [...] Disease Pre-Transplant Consultation Patient: David Pop CSN: [id number] Chief Complaint Pre-transplant evaluation, infectious History of Present Illness David Pop is a 65 y.o. 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 Childhood immunizations and illnesses: got all childhood vaccines, still has tonsils, no PE tubes. Unsure if had measles, mumps. Unsure if had VZV. Places of habitation and travel: Born in [place], no SW travel. 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 Lives with , 3 cats, does the cat litter box. No other pets. Hobbies: fish. Discussed hot tub avoidance. No known TB exposure, no homeless, no shelter, no ivdu, no healthcare work. Current vaccinations: [...] Resource Strain: Low Risk (06/15/2025) Received from [facility] Overall Financial Resource Strain (CARDIA) How hard is it for you to pay for the very basics like food, housing, medical care, and heating?: Not hard at all Food Insecurity: No Food Insecurity (06/15/2025) Received from [facility] Hunger Vital Sign Worried About Running Out of Food in the Last Year: Never true Ran Out of Food in the Last Year: Never true Transportation Needs: No Transportation Needs (06/15/2025) Received from [facility] PRAPARE - Transportation In the past 12 months, has lack of transportation kept you from medical appointments or from getting medications?: No In the past 12 months, has lack of transportation kept you from meetings, work, or from getting things needed for daily living?: No Physical Activity: Inactive (06/15/2025) Received from [facility] Exercise Vital Sign Days of Exercise per Week: 0 days Minutes of Exercise per Session: 0 min Stress: No Stress Concern Present (06/15/2025) Received from [facility] [place] [facility] [employer] [facility] - Occupational Stress Questionnaire Do you feel stress - tense, restless, nervous, or anxious, or unable to sleep at night because yourmind is troubled all the time - these days?: Only a little Social Connections: Socially Integrated (06/15/2025) Received from [facility] Social Connection and Isolation Panel [NHANES] Frequency of Communication with Friends and Family: More than three times a week Frequency of Social Gatherings with Friends and Family: More than three times a week Attends [employer] Services: More than 4 times per year Active Member of Clubs or Organizations: Yes Attends Club or Organization Meetings: Not on file Marital Status: Intimate Partner Violence: Not At Risk (06/15/2025) Received from [facility] Humiliation, Afraid, Rape, and Kick questionnaire Fear of Current or Ex-Partner: No Emotionally Abused: No Physically Abused: No Sexually Abused: No Housing Stability: Low Risk (06/15/2025) Received from [facility] Housing Stability Vital Sign Unable to Pay [...] antibody, IgG (09/10/2025 5:03 PM EDT) Pathologist [facility] Varicella IgG Positive( A) Negative S/CO 09/10/2025 11:49 PM EDT [facility] Comment:Result indicates the presence of detectable VZV IgG antibodies. A positive result is generally indicative of exposure to the pathogen or administration of specific immunoglobulins, but it is no indication of active infection or stage of disease. This test is not approved for determining vaccine-induced immunity to varicella zoster virus. VZV NUM 15.50(H) 0.00 - 0.99 S/CO 09/10/2025 11:49 PM EDT [facility] Serum 09/10/2025 5:03 PM EDT 09/10/2025 10:26 PM EDT Navi Sims MD LAB BLOOD ORDERABLES Final Resu lt Performing Organization Address [facility] Co de Phone Number [facility] [address] * QuantiFERON TB2 Ag (09/10/2025 5:03 PM EDT) Pathologist [facility] QuantiFERON TB2 Ag Value 0.09 09/12/2025 1:19 PM EDT [facility] Plasma 09/10/2025 5:03 PM EDT 09/10/2025 6:29 PM EDT Navi Sims MD LAB BLOOD ORDERABLES Final Resu lt Performing Organization Address City/[facility] Hospital/ZIP Co de Phone Number [facility] [address] * QuantiFERON TB1 Ag (09/10/2025 5:03 PM EDT) QuantiFERON TB1 Ag Value 0.08 09/12/2025 1:19 PM EDT [facility] Plasma 09/10/2025 5:03 PM EDT 09/10/2025 6:29 PM EDT Navi Sims MD LAB BLOOD ORDERABLES Final Resu lt [facility] [address] [facility]. [address] * QuantiFERON Nil (09/10/2025 5:03 PM EDT) Pathologist [facility] QuantiFERON Nil 0.02 1:19 PM EDT [facility] Plasma 09/10/2025 5:03 PM EDT 09/10/2025 6:29 PM EDT Navi Sims MD LAB BLOOD ORDERABLES Final Resu lt Performing Organization Address City/[facility]/ZIP Co de Phone Number [facility] [address] [facility]. [address] * QuantiFERON Mitogen (09/10/2025 5:03 PM EDT) Pathologist [facility] QuantiFERON Interpretation Negative Negative 09/12/2025 1:19 PM EDT [facility] Comment:Negative result pilar cates M. tuberculosis infection is NOT likely. Negative results do not preclude tuberculosis infection (especially in immunosuppressed patients). Negative results have a TB antigen minus Nil value less than 0.35 IU/mL. In cases with high suspicion of disease, retesting or additional testing with medical evaluation may be useful. QuantiFERON Mitogen 8.77 09/12 1:19 PM EDT [facility] Plasma 09/10/2025 5:03 PM EDT 09/10/2025 6:29 PM EDT Narrative [facility] - 09/12/2025 1:19 PM EDT The [...] ORDERABLES Final Resu lt Performing Organization Address City/[facility]/ZIP Co de Phone Number [facility] [address] [facility]. [address] * (ABNORMAL) Strongyloides Ab (09/10/2025 5:03 PM EDT) Pathologist [facility] Strongyloides Ab Positive( A) Negative 09/17/2025 2:56 PM EST [facility] Serum 09/10/2025 5:03 PM EDT 09/17/2025 3:07 PM EST Narrative [facility] - 09/17/2025 3:07 PM EST PERFORMED AT: [address] [id number] WILLOW MACHINE OPERATOR: Kevin Holguin MD PHONE: [phone] Navi Sims MD LAB BLOOD ORDERABLES Final Resu lt Performing Organization Address City/[facility] Co de Phone Number [facility] [address] [facility]. [address] * Toxoplasma gondii antibody, IgG (09/10/2025 5:03 PM EDT) Pathologist [facility] Toxoplasma Gondii IgG <3.0 0.0 - 7.1 IU/mL 09/12/2025 6:21 AM EDT [facility] Comment: Negative <7.2 Equivocal 7.2 - 8.7 Positive >8.7 Serum 09/10/2025 5:03 PM EDT 09/12/2025 7:06 AM EDT Narrative [facility] - 09/12/2025 7:06 AM EDT PERFORMED AT: [facility] [address] [id number] WILLOW MACHINE OPERATOR: Mateo Miller, PhD PHONE: [phone] Navi Sims MD LAB BLOOD ORDERABLES Final Resu lt [facility]. [address] * Syphilis Screening (Trepia) (09/10/2025 5:03 PM EDT) Treponema Pallidum Negative Negative 09/10/2025 11:55 PM EDT [facility] Comment: No serological evidence of infection with Treponema pallidum (incubating or early primary syphilis cannot be excluded). Serum 09/10/2025 5:03 PM EDT 09/10/2025 10:26 PM EDT Naiv Sims MD LAB BLOOD ORDERABLES Final Resu lt [facility] [address] [facility] [facility]. [address] * (ABNORMAL) MMR(IgG) Panel (Measles, Mumps, Rubella) (09/10/2025 5:03 PM EDT) Mumps IgG Positive 09/10/2025 11:51 PM EDT [facility] MUMPS IGG NUM >300.00(H) 0.0 - 8.9 U/mL 09/10/2025 11:51 PM EDT [facility] Rubella IgG Scr Positive 09/10/2025 11:51 PM EDT [facility] RUB NUM 30.20(H) 0.0 - 0.8 INDEX 09/10/2025 11:51 PM EDT [facility] Rubeola Ab, IgG Positive 09/10/2025 11:50 PM EDT [facility] RUB IGG NUM >300.00(H) 0.00 - 13.40 U/mL 09/10/2025 11:50 PM EDT [facility] Serum 09/10/2025 5:03 PM EDT 09/10/2025 10:26 PM EDT Narrative [facility] - 09/10/2025 11:51 PM EDT Presence [...] MD LAB BLOOD ORDERABLES Final Resu lt [facility] [address] [place] [address], [facility] documented in this encounter Visit Diagnoses Diagnosis [...] documented as of this encounter Care Teams Boarder Hand Relationship Specialty Start Date End Date System, Provider Not In PCP - General 09/10/25 10/24/25 documented as of this encounter
--- OUTSIDE RECORDS SUMMARY | 2025-09-12 07:47 | XMS_ITS | Encounter Summary ---
Author Organization Healthcare Address [address] [place] [address] Care Team Providers Care Shrimping Boat Captain Name Role Phone Ruma Hernández ARCHITECTURAL ASSOCIATE Unavailable [phone] Chris Medel MD Primary Care Provider [phone] Reason for Referral * Imaging (Routine) - Closed Specialty Diagnoses / Procedures Referred By Gianna reyes Referred To Contact Radiology Diagnoses Pre-liver transplant, listed Procedures MR Abdomen w and wo IV Contrast Portia Maguire MD [address] [address] Phone: tel: fax: Referral ID Status Reason Start Date Expiration Date Visits Re quested Visits Authorized [id number] Closed 09/05/2025 03/07/2027 1 1 Reason for Visit * Imaging (Routine) - Closed Specialty Diagnoses / Procedures Referred By Gianna reyse Referred To Contact Radiology Diagnoses Pre-liver transplant, listed Procedures MR Abdomen w and wo IV Contrast Portia Maguire MD [address] [address] Phone: tel: fax: Referral ID Status Reason Start Date Expiration Date Visits Re quested Visits Authorized [id number] Closed 09/05/2025 03/07/2027 1 1 Encounter Details Date Type Department Care Team (Latest Contact Info) Description 09/12/2025 8:47 AM EDT - 09/12/2025 11:59 PM EDT Hospital Encounter [facility] Radiology [address] [place] [address] Pre-liver transplant, listed Discharge Disposition: [...] week 06/15/2025 How often do you attend [facility] or yarsani services? More than 4 [...] heating? Not hard at all 06/15/2025 [facility] of Occupat ional [...] drink first t luisa in the morning (EYE-BRIM POUNCING MACHINE OPERATOR) to steady your nerves or [...] 11 09/13/2024 ergocalciferol (Vitamin D-2) 1.25 MG (20646 UT) capsule Take 1 capsule by mouth [...] Visit Medical Office Building Urology [address] [facility], [address] [place] [address] Suhail Brock MD [address] [place] [address] 01/24/2026 4:40 PM EDT Office Visit [facility] [address] [facility], [address] [place] [address] Moustapha Katz MD [address] [facility] [address] [place] [address] documented as of this encounter [...] are consistent with and integrated into the [place] Association for the Study of Liver Diseases [...] using the following sequences: coronal single shot [id number] fast spin echo, axial T2 weighted sequences [...] are consistent with and integrated into the [place] Associationfor the Study of Liver Diseases (AASLD) [...] documented as of this encounter Care Teams Shrimping Boat Captain Relationship Specialty Start [place] [address] PCP - General 03/14/25 Ruma Hernández APRN [address] [facility] [address] [place] [address] Referring Physician Gastroenterology 07/30/23 documented as of this encounter
--- OUTSIDE RECORDS SUMMARY | 2025-09-24 13:00 | XMS_ITS | Encounter Summary ---
Author Organization [facility] Address [address] [place] [address] Care Team Providers Care Maintenance Mechanic 2Nd Shift Name Role Phone System, Provider Not In [...] release of HIV test results or diagnoses. [id number] Reason for Visit * Reason Comments Liver Transplant Evaluation Encounter Details Date Type Department Care Team (Late st Contact Info) Description 09/24/2025 1:00 PM EST Office Visit [facility] Liver Transplant at [address] [phone] Nigel Reaves MD [address] [place] [phone] Esophageal varices without bleeding, unspecified esophageal varices type (CMS-HCC) (Primary Dx); Alcoholic cirrhosis of liver with ascites (CMS-HCC); Hepatic encephalopathy (CMS-HCC); Pre-transplant evaluation for chronic liver disease; Ascites due to alcoholic cirrhosis (CMS-HCC) Social History Tobacco Use Types Packs/Day [...] Sign Reading Time Taken Comments Blood Pressure 125/73 09/24/2025 12:32 PM EST Pulse 70 09/24/2025 12:32 PM EST Temperature 36.6 C (97.8 F) 09/24/2025 12:32 PM EST Respiratory Rate 16 09/24/2025 12:32 PM EST Oxygen Saturation 100% 09/24/2025 12:32 PM EST Inhaled Oxygen Concentration 100% 09/24/2025 1 2:32 PM EST Weight 100.7 kg (222 lb) 09/24/2025 12:32 PM EST Height 167.6 cm (5' 6 ) 09/24/2025 12:32 PM EST Body Mass Index 35.83 09/24/2025 12:32 PM EST documented in this encounter Functional Status * BP Answer Date of Assessment Author 125/73 09/24/2025 12:32 PM EST Andrae Masters MA * Temp Answer Date of Assessment Author 97.8 09/24/2025 12:32 PM Andrae Rodríguez MA * Pulse Answer Date of Assessment Author 70 09/24/2025 12:32 PM Andrae Rodríguez MA * SpO2 Answer Date of Assessment Author 100 09/24/2025 12:32 PM Andrae Rodríguez MA * Height Answer Date of Assessment Author 66 09/24/2025 12:32 PM Andrae Rodríguez MA * Weight Answer Date of Assessment Author 3552 09/24/2025 12:32 PM Andrae Rodríguez MA * Pain Education Answer Date of Assessment Author No 09/24/2025 12:32 PM Andrae Rodríguez MA * Weight in kg Answer Date of Assessment Author 100.7 09/24/2025 12:32 PM Andrae Rodríguez MA * Height in cm Answer Date of Assessment Author 167.6 09/24/2025 12:32 PM Andrae Rodríguez MA * Body Composition Question Answer Date of Assessment Author Weight Change (lbs) 0 09/24/2025 12:32 PM E Adama Ruano MA * NARxCHECK Sedatives Score Answer Date of Assessment Author 010 09/24/2025 12:27 PM EST Interfac e, Doc Flowsheet In * NARxCHECK Stimulants Score Answer Date of Assessment Author 000 09/24/2025 12:27 PM EST Interfac e, Doc Flowsheet In * NARxCHECK Narcotics Score Answer Date of Assessment Author 030 09/24/2025 12:27 PM EST Interfac e, Doc Flowsheet In * Anthropometrics Question Answer Date of Assessment Author BMI (Calculated) 35.85 09/24/2025 12:32 PM Adama Rodríguez MA * Height Percent Change Answer Date of Assessment Author 0 09/24/2025 12:32 PM Andrae Rodríguez MA * HIDDEN-Infusion Dashboard Answer Date of Assessment Author 125 09/24/2025 12:32 PM Andrae Rodríguez MA * BSA (Calculated - sq m) Answer Date of Assessment Author 2.17 09/24/2025 12:32 PM Andrae Rodríguez MA * Height and Weight Question Answer Date of Assessment Author Percent Weight Change Since 0 025 12:32 PM Adama Rodríguez MA * Adult IBW/VT Calculations Question Answer Date of Assessment Author Low Range Vt 4 mL MALE 255.2 09/24/2025 12:32 P M Adama Rodríguez MA Low Range Vt 4 mL FEMALE 237.2 09/24/2025 12:32 PM Adama Rodríguez MA IBW/kg (Calculated) Male 63.8 09/24/2025 12:32 PM Adama Rodríguez MA Low Range Vt 6 mL MALE 382.8 09/24/2025 12:32 P M Adama Rodríguez MA Moderate Range Vt 8 mL MALE 510.4 09/24/2025 12 :32 PM Adama Rodríguez MA High Range Vt 10 mL MALE 638 09/24/2025 12:32 PM Adama Rodríguez MA IBW/kg (Calculated) FEMALE 59.3 09/24/2025 12: 32 PM Adama Rodríguez MA Low Range Vt 6 mL FEMALE 355.8 09/24/2025 12:32 PM Adama Rodríguez MA Moderate Range Vt 8 mL FEMALE 474.4 09/24/2025 12:32 PM Adama Rodríguez MA High Range Vt 10 mL FEMALE 593 09/24/2025 12: 32 PM Adama Rodríguez MA * ROOMING FALL RISK SCORING MECHANISM Answer Date of Assessment Author 0 09/24/2025 12:29 PM Andrae Rodríguez MA * Screening outcome: Answer Date of Assessment Author Not a Fall Risk 09/24/2025 12:29 PM Andrae Rodríguez MA * Fall Risk Screening Question Answer Date of Assessment Author Are you afraid of falling? 0 09/24/2025 12: 29 PM Adama Rodríguez MA Do you use anything to help you walk? 0 08/2025 12:29 PM Adama Rodríguez MA Have you had any falls or ne ar falls in the last 90 days? 0 09/24/2025 12:29 PM Adama Rodríguez MA Fall prevention classes and resources provided today. 0 09/24/2025 12:29 PM Adama Rodríguez MA * Temp (in Celsius) Answer Date of Assessment Author 36.6 09/24/2025 12:32 PM Andrae Rodríguez MA * BP Answer Date of Assessment Author 125/73 09/24/2025 12:32 PM Andrae Rodríguez MA * Height Answer Date of Assessment Author 66 09/24/2025 12:32 PM Andrae Rodríguez MA * Weight Answer Date of Assessment Author 3552 09/24/2025 12:32 PM Andrae Rodríguez MA * Calculated Energy Needs Question Answer Date of Assessment Author [place] St Jeor Equation (RMR) 1,739.74 09/24/2025 12:32 PM Adama Rodríguez MA Fluid Requirements (mL) 3,020.97 09/24/2025 12:32 PM Adama Rodríguez MA * Anthropometrics Question Answer Date of Assessment Author BMI (Calculated) 35.85 09/24/2025 12:32 PM Adama Rodríguez MA * BMI (Calculated) Answer Date of Assessment Author 35.9 09/24/2025 12:32 PM Andrae Rodríguez MA * Adult IBW/VT Calculations Question Answer Date of Assessment Author IBW/kg (Calculated) Male 63.8 09/24/2025 12:32 PM EST Adama Masters MA IBW/kg (Calculated) FEMALE 59.3 09/24/2025 12: 32 PM EST Adama Masters MA * Anthropometrics Question Answer Date of Assessment Author Weight Change 0 09/24/2025 12:32 PM EST Adama Palm MA documented as of this encounter Mental Status * BP Answer Entry Date Author 125/73 09/24/2025 12:32 PM EST Andrae Masters MA * Pulse Answer Entry Date Author 70 09/24/2025 12:32 PM EST Andrae Masters MA * Resp Answer Entry Date Author 16 09/24/2025 12:32 PM EST Andrae Masters MA * SpO2 Answer Entry Date Author 100 09/24/2025 12:32 PM EST Andrae Masters MA documented in this encounter Patient Instructions * Patient Instructions* Nigel Reaves MD - 09/24/2025 1:00 PM EST - Continue your current medications - Urine test today - Avoid aspirin, Ibuprofen, Aleeve, Motrin since these medications can increase the risk of bleeding and can cause kidney damage. - Can take Tylenol up to 2000 mg in a 24 hour period. - Complete abstinence from alcohol. documented in this encounter Progress Notes * Nigel Reaves MD - 09/24/2025 1:00 PM EST Hepatology Follow Up HPI: This is a follow up visit for David Pop, 65 y.o. 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 He is currently listed for liver transplant at our center. He also has dual listing at [facility]. Liver disease diagnosed in 2022 based on cross sectional imaging which showed cirrhotic morphology and stigmata of portal hypertension including varices, recanalized umbilical vein and splenomegaly. Last drink 2022. He had ascites dating back to 2022 for which he has undergone intermittentparacentesis. Last paracentesis 06/22/2025 with 4L removed. Currently on lasix 40 mg and aldactone 150 mg daily. He is on carvedilol 3.125 mg BID. In terms of HE he is well controlled on xifaxan 550 mgtwo times daily. Upper endoscopy 03/2023 with small EV present. He completed his pre-transplant testing with us in July and was placed on liver wait-list He presents today for urgent hospital discharge visit. He had a hospitalization last week due to a fall from feeling weak. He had some hematuria. He was diagnosed with UTI and received antibiotics. He has 1 more days to go. He has been getting paracentesis every other week or so. However during this admission, not much fluid was seen on Ultrasound. 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 Take 1 capsule by mouth 5 times a week. Once daily Wednesday through Wednesday ergocalciferol Take 1 capsule (50,000 Units total) by mouth once a week. furosemide Take 2 tablets (40 mg total) by mouth daily. omeprazole Take 2 capsules (40 mg total) by mouth daily. spironolactone Take 3 tablets (150 mg total) by mouth daily. Xifaxan Take 1 tablet (550 mg total) by mouth 2 times a day. No current facility-administered medications for this visit. Physical Examination: Vitals: 09/24/25 1232 BP: 125/73 BP Location: Right upper arm Patient Position: Sitting BP Cuff Size: Regular Pulse: 70 Resp: 16 Temp: 97.8 ??F (36.6 ??C) TempSrc: Oral SpO2: 100% Weight: 222 lb (100.7 kg) Height: 5' 6 (1.676 m) General: Middle aged male, no apparent distress HENT: Sclera anicteric, moist mucous membranes Neck: Supple Pulmonary: Good air entry b/l, lungs b/l clear to auscultation, Cardiac: RRR, S1 and S2 normal Neuro: Awake, alert, oriented x 3, no asterixis Extremities: 1+ LE edema Skin: No rash or jaundice Labs: Lab name 09/10/25 1703 HEMOGLOBIN 11.4* HEMATOCRIT 33.9* MEAN CORPUSCULAR VOLUME 100.1* PLATELETS 66* SODIUM 142 POTASSIUM 3.8 CHLORIDE 110 CO2 27 BUN 10 CREATININE 0.90 GLUCOSE 79 ALBUMIN 2.1* CALCIUM 7.9* AST 40* ALT 29 BILIRUBIN TOTAL 5.9* ALK PHOS 136* INR 2.0* Assessment and Plan: 65 Y male with decompensated alcoholic cirrhosis and 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 No medical treatment available. Will proceed with transplant - Hemochromatosis carrier: Probably not contributing to liver disease - Ascites: Continue current dose diuretics and as needed paracentesis. Low salt diet - Hepatic encephalopathy: Well controlled on lactulose - Recent UTI: Completing his Levaquin today. Will repeat UA and culture - Variceal screening/surveillance/prophylaxis: Repeat EGD 2025 - HCC screening: Recent CT scan was negative - Transplant status: Current MELD score is 23. He has been approved by the transplant committee, just awaiting insurance approval before listing. Will get MELD labs today - Follow up 3 months Nigel Reaves MD [1] Allergies Allergen Reactions Lisinopril Other (See Comments) documented in this encounter Plan of Treatment Not on file documented as of this encounter Results * Urine culture (09/24/2025 2:11 PM EST) Culture Result No Growth [facility] Midstream Urine URINE SPECIMEN / Unknown 09/24/2025 2:11 PM EST 09/24/2025 3:25 PM EST us Nigel Reaves MD MICROBIOLOGY - GENERAL ORDERABLE S Final Result [facility] [address] [facility] [place] [address], [facility] * (ABNORMAL) Urinalysis w/Rfl to Microscopic (09/24/2025 2:11 PM EST) Color, UA Yellow Yellow,Straw 09/24/2025 3:[address] [facility] Clarity, UA Cloudy(A) Clear 09/24/2025 3:[address] [facility] Specific [place], UA 1.019 1.005 - 1.035 09/24/2025 3:[address] [facility] pH, UA 6.0 5.0 - 8.0 09/24/2025 3:[address] [facility] Protein, UA 30(A) Negative mg/dL 09/24/2025 3:[address] [facility] Glucose, UA Negative Negative mg/dL 09/24/2025 3:[address] [facility] Ketones, UA Negative Negative mg/dL 09/24/2025 3:[address] [facility] Bilirubin, UA Negative Negative 09/24/2025 3:[address] [facility] Blood, UA Large(A) Negative 09/24/2025 3:[address] [facility] Nitrite, UA Negative Negative 09/24/2025 3:[address] [facility] Urobilinogen, UA <2.0 0.2 - 1.9 mg/dL 09/24/2025 3:[address] [facility] Leukocyte Esterase, UA Large(A) Negative 09/24/2025 3:[address] [facility] RBC, UA 61(H) 0 - 3 /HPF 09/24/2025 3:[address] [facility] WBC, UA >100(H) 0 - 5 /HPF 09/24/2025 3:[address] [facility] Squam Epithel, UA 1 0 - 5 /HPF 09/24/2025 3:[address] [facility] Bacteria, UA Rare(A) None Seen /HPF 09/24/2025 3:[address] [facility] Mucus, UA Present(A) None Seen /HPF 09/24/2025 3:[address] [facility] Urine 09/24/2025 2:11 PM EST 09/24/2025 2:51 PM EST us Nigel Reaves MD URINE ORDERABLES Final Result [facility] [address] [place] [address], [facility] documented in this encounter Visit Diagnoses Diagnosis Esophageal varices without bleeding, unspecified esophageal varices type (CMS-HCC)- Primary Alcoholic cirrhosis of liver with ascites (CMS-HCC) Hepatic encephalopathy (CMS-HCC) Hepatic encephalopathy Pre-transplant evaluation for chronic liver disease Ascites due to alcoholic cirrhosis (CMS-HCC) documented in this encounter Additional Health Concerns Assessment Noted Time PHQ-9 Depression Total Score: 8 09/10/20 25 11:09 AM EDT documented as of this encounter Care Teams Maintenance Mechanic 2Nd Shift Relationship Specialty Start Date End Date System, Provider Not In PCP - General 09/10/25 10/24/25 documented as of this encounter
--- OUTSIDE RECORDS SUMMARY | 2025-10-17 08:52 | XMS_ITS | Encounter Summary ---
Author Organization [facility] Address [address] [place] [id number] Care Team Providers Care Manager Respiratory Name Role Phone System, Provider Not In [...] release of HIV test results or diagnoses. [id number] Health Reason for Visit * Auth/Cert (Routine) Specialty Diagnoses / Procedures Referred By Gianna t Referred To Contact Diagnoses TRANSPLANT LIVER Procedures TRANSPLANT LIVER [facility] PERIOP [address] [place] [address] Phone: tel: Referral ID Status Reason Start Date Expiration Date Visits Re quested Visits Authorized [id number] 1 1 Encounter Details Date Type Department Care Team (Latest Contact Info) Description 10/17/2025 8:52 AM EST - 10/22/2025 4:06 PM EST Hospital Encounter [facility] SICU [address] [place] [address] Vani Winkler MD [facility] [place] [id number] S/P liver transplant (CMS-HCC) (Primary Dx); End [...] documented in this encounter Functional Status * Discharge Planning Question Answer Date of Assessment Author Pre-Procedure Discharge Plan Patient's Escort Present (Name in Comment) 10/17/2025 12:05 AM EST Yvette Durham RN Responsible Adult Stacy Serrano (Spouse) 10/17/2025 12:05 AM EST Yvette Durham RN * HEENT Question Answer Date of Assessment Author SABINO (WDL) X 10/22/2025 8:00 AM EST Charbel Moseley RN R Eye Intact;Impaired vision 10/22/2025 8:00 AM EST Charbel Ji RN L Eye Intact;Impaired vision 10/22/2025 8:00 AM EST Charbel Ji RN R Ear Intact;Impaired hearing;Hearing aid 10/22/2025 8:00 AM EST Charbel Ji RN L Ear Intact;Impaired hearing;Hearing aid 10/22/2025 8:00 AM Charbel Cheatham RN Nose Intact 10/22/2025 8:00 AM EST Charbel Moseley RN Nasal Drainage Color YADIRA 10/22/2025 8:[address] Charbel Ji RN Nasal Drainage Consistency YADIRA 10/22/2025 8:00 AM Charbel Cheatham RN Throat Intact 10/22/2025 8:00 AM EST Charbel Moseley RN Tongue [place] & moist 10/22/2025 8:00 AM EST Charbel Moseley RN Voice Deep 10/21/2025 8:00 AM Stacy Batista RN Mucous Membrane(s) Moist;[place];Intact 10/22/2025 8:00 A M Charbel Cheatham RN Teeth Missing teeth 10/22/2025 8:00 AM Charbel Newsome RN Lips Symmetrical;Intact 10/22/2025 8:00 AM Charbel Cheatham RN * Weight in kg Answer Date of Assessment Author 99.79 10/17/2025 9:39 AM Promise Paulino R * Height in cm Answer Date of Assessment Author 167.6 10/17/2025 9:39 AM Promise Paulino R * Pre-Procedure Cipriano Question Answer Date of Assessment Author Oxygenation 2 10/17/2025 9:31 AM Yvette Hoyos RN Activity 2 10/17/2025 9:31 AM Yvette Hoyos RN Circulation 2 10/17/2025 9:31 AM Yvette Hoyos RN Respiration 2 10/17/2025 9:31 AM Yvette Hoyos RN Consciousness 2 10/17/2025 9:31 AM Yvette Martinez RN Cipriano Score 10 10/17/2025 9:31 AM Yvette Martinez RN * Pre-Op Check List Question Answer Date of Assessment Author Beta Blockers Given? N/A 10/17/2025 9:37 AM Yvette Francisco RN Scrubbing with Antibacterial Soap No 10/17/2025 9:37 AM Yvette Whitehead RN H&P Complete? Yes 10/17/2025 9:37 AM Yvette Martinez RN Family Waiting? Yes 10/17/2025 9:37 AM ULISES Cavazos hroeYvette harley RN Pre-Op Antibiotics Given? N/A 10/17/2025 9:37 AM Yvette Whitehead RN Cardiac rhythm assessed? Yes 10/17/2025 9:37 AM Yvette Whitehead RN Patient on Anti-coagulation? N/A 10/17/2025 9 :37 AM Yvette Whitehead RN * Vent Settings/Readings Question Answer Date of Assessment Author Vt Insp (mL) 955 10/18/2025 5:31 AM Karen Calle, ENTEROSTOMAL NURSE Resp Rate (Actual) 7 10/18/2025 7:50 AM EST Teresa العلي, ENTEROSTOMAL NURSE Resp Rate (Set) 16 10/18/2025 12:48 AM Karen Cavazos, ENTEROSTOMAL NURSE Vt (Set, mL) 400 10/18/2025 12:48 AM Karen South, ENTEROSTOMAL NURSE PEEP/CPAP 5 10/18/2025 7:50 AM EST Teresa Shane, ENTEROSTOMAL NURSE PIP Observed 11 10/18/2025 7:50 AM EST Teresa Shane, ENTEROSTOMAL NURSE Vt Exp 1095 10/18/2025 7:50 AM EST Teresa Shane, ENTEROSTOMAL NURSE Delta Pressure Support (cm H2O) 5 10/18/2025 7:50 AM EST Teresa العلي, ENTEROSTOMAL NURSE Insp Rise Time (%) 0.2 10/18/2025 7:50 AM EST Teresa العلي, ENTEROSTOMAL NURSE I:E Ratio 1:5.7 10/18/2025 4:37 AM EST Karen Brown, ENTEROSTOMAL NURSE Airway Resistance 2.5 10/18/2025 7:50 AM EST Teresa العلي, ENTEROSTOMAL NURSE Inspiratory Time Set 0.9 10/18/2025 12:48 AM EST Karen Washington, ENTEROSTOMAL NURSE Dynamic Compliance (L/cm H2O) 184 10/18/2025 7:50 AM EST Teresa العلي, ENTEROSTOMAL NURSE Trigger Sensitivity Flow (L/min) 2 10/18/2025 7:50 AM Teresa Gillette, ENTEROSTOMAL NURSE * PT Comments Question Answer Date of Assessment Author PT Treatment Details H/TXP; s/p OLT. min A bed mob, CGA STS w/RW, CGA-SBA gait 250' w/RW; hypertensive on E, good on f/u. super nice and motivated, IPTA; 2STE 10/19/2025 10:22 AM Jen Radford, PT PT Patient Seen 2: 12/, 10/2210/19/2025 10:22 AM Jen Radford, PT * OT Comments Question Answer Date of Assessment Author OT Treatment Details H/TXP (until 10/25) : s/p OLT, min STS, CGA to transfer w/ RW, min sit<>sup transfer, nice, motivated, supportive fam 10/19/2025 10:59 AM Lary Oscar, OT OT Patient Seen 3: 12/5E 10/19/2025 10:59 AM Lary Ocampo OT * Patient Preparation Question Answer Date of Assessment Author Glasses or Contacts Removed Yes with family 10/17/2025 9:37 AM Yvette Whitehead RN * Vent Humidity Question Answer Date of Assessment Author Humidity Heated wire 10/18/2025 7:50 AM Teresa Ren RRT Humidifier Temp Setting 37 10/18/2025 7:50 A M Teresa Gillette RRT Humidifier Temp Actual 36.8 10/18/2025 7:50 AM Teresa Gillette RRT * Pain Med Side Effects - Required every re-assessment Answer Date of Assessment Author None 10/19/2025 8:20 AM Umu Del Cid RN * Patient Prep Verification Question Answer Date of Assessment Author Did patient attend joint class? N/A 10/17/2025 9:37 AM Yvette Whitehead RN * Cipriano Score Answer Date of Assessment Author 10 10/17/2025 9:31 AM Yvette Whitehead RN * Patient/Chart Verification Question Answer Date of Assessment Author Void Prior to Procedure [id number] 10/17/2025 9:37 A M Yvette Whitehead RN * Tania Coma Scale Question Answer Date of Assessment Author Eye Opening 4 10/22/2025 8:00 AM Charbel Snyedr RN Best Motor Response 6 10/22/2025 8:00 AM Charbel Do RN Best Verbal Response 5 10/22/2025 8:00 AM Charbel Agee RN [place] Coma Scale Score 15 10/22/2025 8:00 AM Charbel Cheatham RN * Algorithm Answer Date of Assessment Author 3 10/19/2025 7:08 AM Bryant Taveras RN * Community Services Question Answer Date of Assessment Author Community Services at Home Not Applicable 10/19/2025 1 :37 PM Citlaly Potter RN Was any abuse reported by patient? No 10/19/2025 1:37 PM Citlaly Potter RN * Skeletal Traction Question Answer Date of Assessment Author Skeletal Traction No 10/22/2025 8:00 AM Charbel Cheatham RN * Traction Question Answer Date of Assessment Author Cervical Traction No 10/22/2025 12:00 PM Charbel Cheatham RN Tomas's Traction No 10/22/2025 12:00 PM Charbel Weir RN * External Fixators Question Answer Date of Assessment Author Extremity External Fixator No 10/22/2025 8:0 0 AM Charbel Cheatham RN * IV Assessment Information Question Answer Date of Assessment Author IV Assessment Information Shift Assessment;No changes from MY previous IV assessment 10/22/2025 12:00 PM Charbel Cheatham RN * Wound Assessment Information Question Answer Date of Assessment Author Wound Assessment Information Reassessment;No changes from MY previous wound assessment 10/22/2025 12:00 PM Charbel Cheatham RN * I&O Assessment Information Question Answer Date of Assessment Author I&O Assessment Information Reassessment;No changes from MY previous I&O assessment 10/22/2025 12:00 PM Charbel Cheatham RN * Body Composition Question Answer Date of Assessment Author Weight Change (lbs) 0 10/17/2025 9:39 AM Suzanne Sepulveda * Patient Admission Handbook Question Answer Date of Assessment Author Patient handbook provided an d reviewed? No 10/17/2025 11:47 PM EST Kira Masterson R N * Case Status Question Answer Date of Assessment Author Case Status Discharge ready 10/22/2025 12:24 PM EST Citlaly Hamm RN * Assessment Information Question Answer Date of Assessment Author Assessment Information Reassessment;No changes from MY previous assessment 10/22/2025 12:00 PM Charbel Cheatham RN * Assessment Information Question Answer Date of Assessment Author Assessment Information Shift Assessment 10/17/2025 9:3 9 AM EST Yvette Durham RN * MEWS Score Question Answer Date of Assessment Author MEWS Score 1 10/22/2025 5:01 PM EST Sophie Martínez * Respiratory Vitals Question Answer Date of Assessment Author Mean Airway Pressure 5.9 10/18/2025 7:50 AM E Teresa Wang RRT Spont TV 902 10/18/2025 7:50 AM Teresa Ren RRT Ve 6.9 10/18/2025 7:50 AM Teresa Ren RRT * Total Workload Score Answer Date of Assessment Author 63.09 10/22/2025 5:15 PM Sophie Mosley * P.O. Intake Question Answer Date of Assessment Author P.O. 240 10/22/2025 12:00 PM Charbel Newsome RN Nutritional Supplement Yes 10/22/2025 10:00 A M Charbel Cheatham RN Percent Meals Eaten (%) 90 10/22/2025 10:00 AM Charbel Cheatham RN Diet Type Oral diet as ordered 10/22/2025 12:00 PM Charbel Cheatham RN Feeding Able to feed self 10/22/2025 12:00 PM Charbel Cheatham RN Appetite Fair 10/22/2025 10:00 AM Charbel Newsome RN * Sepsis Risk Score Question Answer Date of Assessment Author Sepsis Risk Score 1 10/22/2025 5:15 PM E Sophie Cummings * Post Acute Care Treatment Preferences Question Answer Date of Assessment Author Treatment Preferences Distance 10/22/2025 12:23 PM Citlaly Potter RN * Transition of Care Question Answer Date of Assessment Author All Required Information Sent to Post Acute Care Providers? Yes, to Home Health Care Agency 10/22/2025 3:12 PM Citlaly Potter RN Method of Provision of Information to Post Acute Care Providers Electronic ([facility] In[employer]) 10/22/2025 3:12 PM Citlaly Potter RN * Current Living Arrangements Question Answer Date of Assessment Author Frequency of Falls Prior to diagonsis 10/19/2025 1:37 PM Citlaly Potter RN Current Living Arrangements Home 10/19/2025 1:37 PM Citlaly Potter RN Type of Housing House 10/19/2025 1:37 PM Citlaly Lucero RN Who do you live with? With Family 10/19/2025 1:37 PM Citlaly Potter RN What family member? Spouse Stacy 10/19/2025 1:37 PM Citlaly Sun RN History of Falls? Yes 10/19/2025 1:37 PM Citlaly Potter RN One Story or Two (check all that apply) One Story 10/19/2025 1:37 PM Citlaly Potter RN Enter the number of steps and rails to enter the residence `2 10/19/2025 1:37 PM Citlaly Potter RN Enter the number of steps and rails inside the residence 0 10/19/2025 1:37 PM Citlaly Potter RN * Anthropometrics Question Answer Date of Assessment Author BMI (Calculated) 35.53 10/17/2025 9:39 AM Suzanne Joiner * Functional Assessment Question Answer Date of Assessment Author How do you wish to be addressed? Tanner 10/19/2025 1:37 PM Citlaly Potter RN Demographics Correct: Yes 10/19/2025 1:37 PM Citlaly Potter RN Expected Discharge Disposition Home with Home Care 10/19/2025 1:37 PM Citlaly Potter RN Mental Health History No 10/19/2025 1:37 PM Citlaly Potter RN May We Obtain Collateral Information From Family, Friends and Neighbors? Yes 10/19/2025 1:37 PM Citlaly Potter RN Marital Status 10/19/2025 1:37 PM Citlaly Potter RN Work History Retired 10/19/2025 1:37 PM Citlaly Potter RN Current Mental Status Awake;Oriented to Person;Oriented to Place;Oriented to Time;Oriented to Situation 10/19/2025 1:37 PM Citlaly Potter RN Mental Status Prior to Admission Unable to Assess 10/19/2025 1:37 PM Citlaly Potter RN Activities of Daily Living Independent 10/19/2025 1:37 PM Citlaly Potter RN ADL Comments As reported by pt an d spouse Stacy 10/19/2025 1:37 PM Citlaly Potter RN Relative Search Completed Yes 10/19/2025 1:37 PM Citlaly Potter RN Assessment Information Obtained From: Patient;Spouse 10/19/2025 1:37 PM Citlaly Potter RN Suicide Attempts No 10/19/2025 1:37 PM Citlaly Potter RN Number of children and their names 1- Lan Serrano ([phone]) and Gloria Banegas ([phone]) 10/19/2025 1:37 PM Citlaly Potter RN * Support Systems Question Answer Date of Assessment Author Name of Guardian/POA/ Payee and Phone Number Stacy Kiesha ([phone]) 10/19/2025 1:37 PM Citlaly Potter RN Caregiver name/phone number Stacy Willisworth ([phone]) 10/19/2025 1:37 PM Citlaly Potter RN Times of available support Total 24/7 hands on (add comment) 10/19/2025 1:37 PM Citlaly Potter RN Primary Caregiver Self;Spouse 10/19/2025 1:37 PM Citlaly Potter RN Next of Kin Stacy Serrano 10/19/2025 1:37 PM Citlaly Woodard RN Next of Kin ) 10/19/2025 1:3 7 PM Citlaly Potter RN Legal Status HCPOA 10/19/2025 1:37 PM Citlaly Cabrera RN Next of Kin Relationship Spouse 10/19/2025 1:37 PM Citlaly Potter RN * Height Percent Change Answer Date of Assessment Author 0 10/17/2025 9:39 AM Promise Paulino R * Interventions Question Answer Date of Assessment Author Date of Service 13764 10/22/2025 12:23 PM Citlaly Potter RN Time Spent with Patient (minutes) 60 10/22/2025 12:23 PM Citlaly Potter RN Role RN Care Coordination 10/22/2025 12:23 PM Citlaly Potter RN Interventions Discharge Planning 10/22/2025 12 :23 PM Citlaly Potter RN * Pertinent Medications Question Answer Date of Assessment Author Anticoagulation therapy Yes 10/19/20 1:37 PM Citlaly Potter RN New Diabetic No 10/19/2025 1:37 PM Citlaly Potter RN Anticoagulant (Name of Drug) hosptial herparin protocol 10/19/2025 1:37 PM Citlaly Potter, RN * Position after treatment and safety handoff Question Answer Date of Assessment Author Position after therapy session Bed 10/19/2025 10:57 AM EST Lary Ding, OT Details RN notified;visitor present;Call light/ needs within reach 10/19/2025 10:57 AM EST New Dinga, OT Alarms Bed 10/19/2025 10:57 AM EST New Pearla, OT Alarms Status Activated and Interfaced with call system 10/19/2025 10:57 AM EST New Dinga, OT * HIDDEN-Infusion Dashboard Answer Date of Assessment Author 123 10/22/2025 2:00 PM Charbel Cheatham, SILVIO * Home medication infusion pump Question Answer Date of Assessment Author Does patient have a home med ication infusion pump? No 10/17/2025 11:45 PM Kira Chandler R N * Diabetes Survey Questions Question Answer Date of Assessment Author Do you have Diabetes? No 10/17/2025 11:42 PM Kira Chandler, SILVIO * Ronit's Cardiac Output Score Question Answer Date of Assessment Author CO (L/min) 6.61 10/18/2025 6:57 AM Karen Calle, ENTEROSTOMAL NURSE CI (L/min/m2) 3.18 10/18/2025 6:57 AM Karen South, ENTEROSTOMAL NURSE * Position after treatment and safety handoff Question Answer Date of Assessment Author Position after therapy session Chair 10/22/2025 12:08 PM EST Jen Mckeon, PT Details RN notified;Call lig ht/ needs within reach 10/22/2025 12:08 PM EST Jen Mckeon, PT Alarms Chair 10/22/2025 12:08 PM EST Richard aNpierthi, PT Alarms Status Activated and Interfaced with call system 10/22/2025 12:08 PM EST Jen Mckeon, PT * [place] Status & Connection to [facility] Question Answer Date of Assessment Author Are you a ? No 10/19/2025 1:37 PM Citlaly Potter, RN * ROSELYN (PAS-PAD/CVP) Answer Date of Assessment Author 4 10/18/2025 6:00 PM Umu Del Cid RN * CHG - Daily in ICU and for all Patients with CVC Question Answer Date of Assessment Author CHG Hygiene Wipes 10/22/2025 12:00 PM Charbel Newsome RN * Epic Fall Predictive Model (EFPM) Score Answer Date of Assessment Author 29.8 10/22/2025 4:01 PM EST Batch Job , Background User * Fall Risk Question Answer Date of Assessment Author Date of Last Fall [id number] 10/18/2025 12:00 AM Kira Chandler RN Fall Risk Precautions In Place [place] 10/22/2025 12:00 PM Charbel Cheatham RN Other reasons for High Fall Precautions Clinical Judgement 10/22/2025 12:00 PM Charbel Cheatham RN * Urine Output/Observations Question Answer Date of Assessment Author Urine 900 10/22/2025 3:00 PM Charbel Snyder RN Urine Source Urethra 10/22/2025 12:00 PM Charbel Newsome RN Iniguez Care Yes 10/19/2025 12:57 AM Anne Taveras RN Urine Color Yellow/straw 10/22/2025 12:00 PM Charbel Newsome RN Urine Appearance Hazy 10/22/2025 12:00 PM Charbel Cheatham RN Urine Odor No odor 10/22/2025 12:00 PM Charbel Newsome RN Urine Occurrence 1 10/22/2025 11:00 AM Charbel Cheatham RN Urinary Incontinence No 10/22/2025 12:00 PM Charbel Cheatham RN * Stool Output/Observations Question Answer Date of Assessment Author Stool consistency: [place] Stool Chart Type 6: Fluffy pieces with ragged edges, a mushy stool 10/22/2025 8:00 AM Charbel Cheatham RN Stool Occurrence 0 10/22/2025 12:00 PM Charbel Cheatham RN Stool 0 10/22/2025 12:00 PM Charbel Newsome RN Stool Color Brown 10/22/2025 8:00 AM Charbel Snyder RN Stool Amount Small 10/22/2025 8:00 AM Charbel Snyder RN Bowel Incontinence No 10/22/2025 12:00 PM ES T Charbel Ji RN * Output Activities Question Answer Date of Assessment Author Cyndi-care Yes 10/22/2025 1:00 PM Charbel Snyder RN Activity Up to commode;Up to chair 10/22/2025 1:00 PM Charbel Cheatham RN Level of Assistance Minimal assist, patient does 75% or more 10/22/2025 1:00 PM Charbel Cheatham RN * Other Output Question Answer Date of Assessment Author Emesis 0 10/22/2025 8:00 AM Charbel Snyder RN Est Blood Loss 0 10/22/2025 8:00 AM Charbel Jones RN Emesis Occurrence 0 10/22/2025 8:00 AM Charbel Cheatham RN Blood 0 10/22/2025 8:00 AM Charbel Snyder RN * Vitals During Therapy Question Answer Date of Assessment Author BP (mmHg) 1902/80s 10/19/2025 10:20 AM EST Jen Napier, PT Comments on Vitals pt with increasing hypertension during mobility, returned to 140s with rest at end of session. All other VSS 10/19/2025 10:20 AM Jen Radford, PT * Agitation Risk Factor Scoring Tool Question Answer Date of Assessment Author Hx of Aggression 0 10/22/2025 6:01 AM EST B atc Job, Background User Hx of Bipolar Disorder 0 10/22/2025 6:01 AM EST Batch Job, Background User Hx of Dementia 0 10/22/2025 6:01 AM EST Bat Job, Background User Positive Drug Screen in Past 180 Days 0 10/22/2025 6:01 AM EST Batch Job, Backgr ound User Positive Drug Screen 0 10/22/2025 6:[address] Batch Job, Background User ED LOS >24H 0 10/22/2025 6:01 AM EST Batch Job, Background User Means of Arrival- Escorted by Police 0 10/22/2025 6:01 AM EST Batch Job, Backgr ound User Previous AMA 0 10/22/2025 6:01 AM EST Batch Job, Background User Hx of Violent Restraint or Seclusion 0 10/22/2025 6:01 AM EST Batch Job, Backgr ound User Chief Complaint- Altered Mental Status 0 10/22/2025 6:01 AM EST Batch Job, Backgr ound User Blood Alcohol > Legal Limit 0 10/22/2025 6: 01 AM EST Batch Job, Background User Agitation Risk Factors Total Score 0 10/22/2025 6:01 AM EST Batch Job, Backgr ound User * Vitals Therapy Question Answer Date of Assessment Author Vitals VSS throughout 10/22/2025 12:09 PM EST Re ddJen victor, PT * Cognition Question Answer Date of Assessment Author Orientation Level Oriented X4 10/22/2025 12:08 PM EST MckeonJen, PT * Risk Category Answer Date of Assessment Author Average 10/22/2025 4:54 PM EST Interface , Doc Flowsheet In * Risk Score Answer Date of Assessment Author 39 10/22/2025 4:54 PM EST Interface , Doc Flowsheet In * Restraint Attestation: End of Each Shift, Removal of Restraint, Upon Department Transfer Question Answer Date of Assessment Author Restraint Attestation Patient observatio ns, assessments and interventions were completed Q2H. The patient remains free of injury from restraints. 10/18/2025 8:00 AM Angela Del Cid RN Reason for Continuation maintain patency of ET tube and central line 10/18/2025 6:00 AM Kira Chandler RN * Fentanyl Drip Question Answer Date of Assessment Author Volume (mL) Fentanyl 7.07 10/18/2025 7:58 AM Angela Gupta RN * Restraint Device Status: Upon Initiation, Start of Each Shift, With Any Change to Restraint Device(s) Question Answer Date of Assessment Author Soft Restraint R Upper Extremity;L Upper Extremity 10/17/2025 10:40 PM Kira Chandler RN Soft Restraint R Upper Extremity Discontinued 10/18/2025 8:00 AM Angela Del Cid RN Soft Restraint L Upper Extremity Discontinued 10/18/2025 8:00 AM Angela Del Cid RN * Oxygen Therapy Question Answer Date of Assessment Author SpO2 96 10/22/2025 2:00 PM EST Charbel Moseley RN O2 Flow Rate (L/min) 2 10/20/2025 12:00 AM Anne Taveras RN O2 Device None (Room air) 10/22/2025 12:00 PM EST Charbel Mckeon RN FiO2 40 10/18/2025 9:00 AM Angela Del Cid RN SpO2 Alarm Limit Low 90 10/22/2025 12:00 PM Charbel Cheatham RN SpO2 Alarm Limit High 100 10/22/2025 12:00 PM Charbel Cheatham RN Oximetry Probe Site Changed No 10/22/2025 12:00 PM Charbel Cheatham RN Pulse Oximetry Type Continuous 10/22/2025 12:[address] Charbel Ji RN * Vitals Question Answer Date of Assessment Author BP 123/86 10/22/2025 2:00 PM Charbel Snyder RN Temp 98.3 10/22/2025 12:00 PM Charbel Newsome RN Pulse 74 10/22/2025 2:00 PM Charbel Snyder RN Heart Rate Source Monitor 10/22/2025 12:00 PM Charbel Cheatham RN Cardiac Rhythm SR 10/22/2025 12:00 PM EST Charbel Hernandez RN Ectopy PVC 10/22/2025 12:00 PM Charbel Newsome RN Ectopy Frequency Rare 10/22/2025 12:00 PM Charbel Cheatham RN * Invasive Hemodynamic Monitoring Question Answer Date of Assessment Author PAP (Mean) 19 10/18/2025 6:00 PM Angela Del Cid RN PPV 15 10/20/2025 8:00 AM EST Stacy Shankar RN PCWP (mmHg) 11 10/18/2025 6:57 AM Karen Calle, BK SVR (dyne*sec)/cm5 677 10/18/2025 6:57 AM Karen Hendrix RRT PVR (dyne*sec)/cm5 85 10/18/2025 6:57 AM Karen Hendrix, BK SV (mL) 101.7 10/18/2025 6:57 AM Karen Calle, BK * Neurological Question Answer Date of Assessment Author Level of Consciousness Alert 8:00 AM EST Charbel Ji RN Cognition Ability to abstract;Appropriate judgement;Appropriate safety awareness;Appropriate attention/concentration; Appropriate for developmental age;Follows simple commands 10/22/2025 8:00 AM EST Charbel Ji RN Speech Clear;Appropriate fo r developmental age 1210/22/2025 8:00 AM EST Charbel Ji RN L Pupil Reaction Reactive 10/22/2025 8:00 AM EST Charbel Ji RN L Pupil Size (mm) 3 10/22/2025 8:0 0 AM EST Charbel Ji, SILVIO R Pupil Reaction Reactive 10/22/2025 8:00 AM EST Charbel Ji RN R Pupil Size (mm) 3 10/22/2025 8:0 0 AM EST Charbel Ji RN LUE Motor Response Responds to commands 10/22/20 8:00 AM EST Charbel Ji RN LUE Sensation Full sensation 10/22/2025 8:00 AM EST Charbel Ji RN LLE Motor Response Responds to commands 10/22/20 8:00 AM EST Charbel Ji RN LLE Sensation Full sensation 10/22/2025 8:00 AM EST Charbel Ji RN RUE Motor Response Responds to commands 10/22/20 8:00 AM EST Charbel Ji RN RUE Sensation Full sensation 10/22/2025 8:00 AM EST Charbel Ji, RN RLE Motor Response Responds to commands 10/22/20 8:00 AM EST Charbel Ji RN RLE Sensation Full sensation 10/22/2025 8:00 AM EST Charbel Ji RN Neuro (WDL) WDL 10/22/2025 8:00 AM EST Charbel Ji RN R Hand Crayon Painter Moderate 10/22/2025 8:00 AM EST Charbel Ji RN L Hand Crayon Painter Moderate 10/22/2025 8:00 AM EST Charbel Ji RN R Foot Dorsiflexion Moderate 10/22/2025 8 :00 AM EST Charbel Ji RN L Foot Dorsiflexion Moderate 10/22/2025 8 :00 AM EST Charbel Ji, SILVIO R Foot Plantar Flexion Moderate 8:00 AM Charbel Cheatham RN L Foot Plantar Flexion Moderate 8:00 AM Charbel Cheatham RN R Pupil Shape Round 10/22/2025 8:00 AM Charbel Cheatham RN L Pupil Shape Round 10/22/2025 8:00 AM Charbel Cheatham RN Neuro Symptoms None 10/22/2025 8:00 AM Charbel Cheatham RN RUE Motor Strength 4 10/22/2025 8: 00 AM Charbel Cheatham RN LUE Motor Strength 4 10/22/2025 8: 00 AM Charbel Cheatham RN RLE Motor Strength 3 10/22/2025 8: 00 AM Charbel Cheatham RN LLE Motor Strength 3 10/22/2025 8: 00 AM Charbel Cheatham RN Pupil Assessment Yes 10/22/2025 8:00 AM Charbel Cheatham RN Motor Function/Sensation Assessment Crayon Painter;Dorsiflexion;Planta r flexion;Motor response;Sensation;Motor strength 10/22/2025 8:00 AM Charbel Cheatham RN * Respiratory Question Answer Date of Assessment Author Respiratory (WDL) WDL 10/22/2025 8:00 AM Charbel Cheatham RN R Breath Sounds Clear 10/22/2025 8:00 AM Charbel Evans RN L Breath Sounds Clear 10/22/2025 8:00 AM Charbel Evans RN Cough Non-productive 10/22/2025 8:00 AM Charbel Jones RN Respiratory Additional Assessments No 10/22/2025 8:00 AM Charbel Cheatham RN * Cardiac Question Answer Date of Assessment Author Cardiac (WDL) X 10/22/2025 8:00 AM Charbel Newsome RN Cardiac Regularity Regular 10/22/2025 8:00 AM Charbel Cheatham RN Heart Sounds S1, S2 10/22/2025 8:00 AM Charbel Snyder RN Jugular Venous Distention (JVD) No 8:00 AM Charbel Cheatham RN Cardiac Symptoms None 10/22/2025 8:00 AM EST Charbel Mckeon RN * [place] Question Answer Date of Assessment Author [place] Placement Date 11268 10/19/2025 4:00 AM ES Anne Coronel RN [place] Removal Date 36727 10/19/2025 4:45 AM Anne Taveras RN Swan Lumen Status All lumens patent 10/19/2025 4:00 AM Anne Taveras RN Type of [place] Al[place] Manual 10/19/2025 4:00 AM Anne Taveras RN [place] Alma (cm) 51 10/19/2025 4:00 AM Anne Deal RN [place] Wave Form Sharp wave forms;Rezeroed 10/17/2025 10:40 PM Kira Chandler RN * Gastrointestinal Question Answer Date of Assessment Author Last BM Date 41869 10/22/2025 8:00 AM Charbel Cheatham RN Passing Flatus Yes 10/22/2025 8:00 AM Charbel Cheatham RN Palpation/Percussion Soft;No guarding;Nontender; No rebound 10/22/2025 8:00 AM Charbel Cheatham RN Bowel Sounds (All Quadrants) Active 06/2025 8:00 AM Charbel Cheatham RN Gastrointestinal (WDL) WDL 8:00 AM Charbel Cheatham RN Abdomen Inspection Soft;Nondistended;R ounded;Obese 10/22/2025 8:00 AM Charbel Cheatham RN GI Symptoms None 10/22/2025 8:00 AM Charbel Cheatham RN * Peripheral Vascular Question Answer Date of Assessment Author Peripheral Vascular (WDL) X 10/22/2025 8:00 AM Charbel Cheatham RN Generalized Edema Non-pitting 10/22/2025 8:00 AM Charbel Cheatham RN RLE Edema +2 10/22/2025 8:00 AM Charbel Snyder RN LLE Edema +2 10/22/2025 8:00 AM Charbel Snyder RN Capillary Refill Less than 3 seconds (All extremities) 10/22/2025 8:00 AM Charbel Cheatham RN Pulses R radial;L radial;R pedal;L pedal 10/22/2025 8:00 AM Charbel Cheatham RN Cyanosis None 10/22/2025 8:00 AM EST Charbel Moseley RN Edema Generalized;Right lower extremity;Left lower extremity 10/22/2025 8:00 AM Charbel Cheatham RN * RUE Neurovascular Assessment Question Answer Date of Assessment Author R Radial Pulse +2 10/22/2025 8:00 AM EST Charbel Rushing RN * LUE Neurovascular Assessment Question Answer Date of Assessment Author L Radial Pulse +2 10/22/2025 8:00 AM Charbel Jones RN * RLE Neurovascular Assessment Question Answer Date of Assessment Author R Pedal Pulse +2 10/22/2025 8:00 AM Charbel Newsome RN * LLE Neurovascular Assessment Question Answer Date of Assessment Author L Pedal Pulse +2 10/22/2025 8:00 AM Charbel Newsome RN * Musculoskeletal Question Answer Date of Assessment Author RUE Full movement 10/22/2025 8:01 AM Charbel Newsome RN RLE Swelling;Full movement 10/22/2025 8:01 AM Charbel Cheatham RN LUBraden Full movement 10/22/2025 8:01 AM Charbel Newsome RN LLE Swelling;Full movement 10/22/2025 8:01 AM Charbel Cheatham RN * Genitalia Question Answer Date of Assessment Author Male Genitalia Male Intact;Male Hernia;Male Swelling;Male Edema;Enlarged scrotum 10/22/2025 8:00 AM Charbel Cheatham RN * Anus/Rectum Question Answer Date of Assessment Author Anus/Rectum (WDL) WDL 10/22/2025 8:00 AM Charbel Cheatham RN * Psychosocial Question Answer Date of Assessment Author Patient Behaviors/Mood Calm;Cooperative 10/22/2025 8:0 0 AM Charbel Cheatham RN Family Behaviors Appropriate for situation;Cooperative;C edwar;Supportive 10/22/2025 8:00 AM Charbel Cheatham RN Visitor Behaviors Appropriate for situation 10/22/2025 8:00 AM Charbel Cheatham RN Needs Expressed Physical;Emotional 10/22/2025 8:00 AM Charbel Cheatham RN Rest/Sleep for Family Fair 10/22/2025 8:00 AM Charbel Cheatham RN Rest/Sleep for Patient Fair 10/22/2025 8:00 AM Charbel Cheatham RN * Garcia Fall Risk Question Answer Date of Assessment Author History of Falling 0 10/22/2025 8:00 AM Charbel Cheatham RN Secondary Diagnosis 15 10/22/2025 8:00 AM Charbel Do RN Ambulatory Aids 15 10/22/2025 8:00 AM Charbel Evans RN Intravenous Therapy/Heparin/ Saline Lock 20 10/22/2025 8:00 AM Charbel Cheatham RN Gait/Transferring 0 10/22/2025 8:00 AM Charbel Cheatham RN Mental Status 15 10/22/2025 8:00 AM Charbel Newsome RN Garcia Fall Risk Score 65 10/22/2025 8:00 AM Charbel Cheatham RN * Sky Scale Question Answer Date of Assessment Author Sensory Perceptions 4 10/22/2025 4:00 PM Charbel Do RN Moisture 3 10/22/2025 4:00 PM Charbel Snyder RN Activity 3 10/22/2025 4:00 PM Charbel Snyder RN Mobility 4 10/22/2025 4:00 PM Charbel Snyder RN Nutrition 2 10/22/2025 4:00 PM Charbel Snyder RN Friction and Shear 3 10/22/2025 4:00 PM Charbel Cheatham RN Sky Scale Score 19 10/22/2025 4:00 PM Charbel Cheatham RN * BSA (Calculated - sq m) Answer Date of Assessment Author 2.16 10/17/2025 9:39 AM EST Promise Pickens R * Cardiac Question Answer Date of Assessment Author Telemetry/Astronomy Instructor Yes 10/17/2025 9:39 AM EST Yvette Durham RN * Cough Description Question Answer Date of Assessment Author Sputum Amount None 10/22/2025 8:00 AM Charbel Newsome RN Sputum Color None 10/22/2025 8:00 AM EST Charbel Moseley RN Sputum Consistency None 10/22/2025 8:00 AM EST Charbel Ji RN * Pulmonary Volume Expansion Question Answer Date of Assessment Author Sputum Present 10/22/2025 11:25 AM EST Nate Tovar, ENTEROSTOMAL NURSE Pulm Vol Expansion Goal 1250 10/22/2025 11:25 AM EST Nate Wolfe, ENTEROSTOMAL NURSE Pulm Vol Expansion Achieved 6324-1643 10/22/2025 11 :25 AM EST Nate Wolfe, ENTEROSTOMAL NURSE * Vitals Question Answer Date of Assessment Author Height 66 10/17/2025 9:39 AM Suzanne Paulino R Weight 3520 10/17/2025 9:39 AM Suzanne Paulino * Insulin Drip Question Answer Date of Assessment Author Volume (mL) Insulin 7.4 10/19/2025 10:54 AM E Angela Rizo RN * Epinephrine Drip Question Answer Date of Assessment Author Volume (mL) Epinephrine 7.25 10/17/2025 11:00 PM EST Kira Masterson RN * Propofol Drip Question Answer Date of Assessment Author Volume (mL) Propofol 4.83 10/18/2025 7:58 AM E Angela Rizo RN * Height and Weight Question Answer Date of Assessment Author Percent Weight Change Since 0 025 9:39 AM Suzanne Paulino * Blood Glucose Meter Prelim Answer Date of Assessment Author 96 10/22/2025 10:39 AM Charbel Cheatham RN * Advance Directives (For Healthcare) Question Answer Date of Assessment Author Type of Healthcare Directive Durable power of trademark attorney for health care 10/19/2025 1:50 PM Citlaly Potter RN Advance Directive Patient has advance directive, copy in chart 10/19/2025 1:50 PM Citlaly Potter RN Healthcare Agent Appointed Yes 10/19/2025 1:50 PM Citlaly Potter RN Healthcare Agent's Name Stacy Serrano 10/19/2025 1:50 PM Citlaly Potter RN Healthcare Agent's 10/19/2025 1:50 PM Citlaly Potter RN Pre-existing DNR/DNI Order No 10/19/2025 1:50 PM Citlaly Potter RN Patient Requests Assistance No 10/19/2025 1:50 PM Citlaly Potter RN * Discharge Planning Question Answer Date of Assessment Author Who does patient live with? Spouse/significant other 10/17/2025 11:47 PM Kira Chandler RN Support Systems Spouse/significant other 10/17/2025 11:47 PM Kira Chandler RN Type of Residence Private residence 10/17/2025 1 1:47 PM Kira Chandler RN In the past 12 months has the electric, gas, oil, or water [employer] threatened to shut off services in your home? No 10/17/2025 11:47 PM Kira Chandler RN In the last 12 months, was there a time when you were not able to pay the mortgage or rent on time? No 10/17/2025 11:47 PM Kira Chandler RN In the past 12 months, how many times have you moved where you were living? 0 10/17/2025 11:47 PM Kira Chandler RN At any time in the past 12 months, were you homeless or living in a nursing home (including now)? No 10/17/2025 11:47 PM Kira Chandler RN In the past 12 months, has lack of transportation kept you from medical appointments or from getting medications? No 10/17/2025 11:47 PM Kira Chandler RN In the past 12 months, has lack of transportation kept you from meetings, work, or from getting things needed for daily living? No 10/17/2025 11:47 PM Kira Chandler RN * Nutrition Screen Question Answer Date of Assessment Author Diabetic Education Needed 2 10/17/2025 11:4 8 PM Kira Chandler RN Unplanned Weight Gain in [place] Three Months 2 10/17/2025 11:48 PM Kira Chandler R N Unplanned Weight Loss in Las t Three Months 2 10/17/2025 11:48 PM Kira Chandler R N Poor Oral Intake for Four or More Days Prior to Admission 2 10/17/2025 11:48 PM Kira Chandler RN Difficulty Chewing or Swallowing 2 10/17/20 11:48 PM Kira Chandler RN Pressure Ulcer or Non-Healin g Wound 2 10/17/2025 11:48 PM Kira Chandler R N Home Tube Feeding or Total Parenteral Nutrition (TPN) 2 10/17/2025 11:48 PM Markell Chandler RN Dietitian Consult Needed 2 10/17/2025 11:48 PM Kira Chandler RN Vomiting/Diarrhea/Nausea Gre ater Than 3 Days 2 10/17/2025 11:48 PM Kira Chandler R N Within the past 12 months, y ou worried that your food would run out before you got the money to buy more. Never true 10/17/2025 11:48 PM Kira Chandler R N Within the past 12 months, t he food you bought just didn't last and you didn't have money to get more. Never true 10/17/2025 11:48 PM Kira Chandler R N * Abuse/Trauma History Question Answer Date of Assessment Author Violence/Trauma Denies 10/17/2025 9:30 AM EST Yvette Meraz RN Exploitation Denies 10/17/2025 9:30 AM EST Yvette Orellana RN Physical Abuse Denies 10/17/2025 9:30 AM EST Yvette Ellis RN Verbal Abuse Denies 10/17/2025 9:30 AM EST Yvette Orellana RN Sexual Abuse No 10/17/2025 9:30 AM EST Yvette Orellana RN Neglect Denies 10/17/2025 9:30 AM EST Yvette Orellana RN * Values / Beliefs Question Answer Date of Assessment Author Cultural Requests During Hospitalization No 10/17/2025 9:30 AM Yvette Whitehead RN Spiritual Requests During Hospitalization No 10/17/2025 9:30 AM Yvette Whitehead RN * Stool Assessment Question Answer Date of Assessment Author Stool Source Colostomy 10/22/2025 8:01 AM EST Charbel Moseley RN * Art Line Question Answer Date of Assessment Author Arterial Line MAP (mmHg) 113 10/20/2025 10:00 AM EST Stacy Zamorano RN Arterial Line Location Right radial 10/20/2025 4:00 AM Anne Taveras RN Art Line Wave Form Appropriate wave forms 10/20/2025 4 :00 AM Anne Taveras RN * Genitourinary Question Answer Date of Assessment Author Genitourinary ([facility]) [facility] 10/22/2025 8:00 AM Charbel Do RN Genitourinary Symptoms None 10/22/2025 8:00 AM Charbel Cheatham RN * Neurological Question Answer Date of Assessment Author Neuro ([facility]) [facility] 10/17/2025 9:39 AM Yvette Hoyos RN Neuro Additional Assessments Tania Coma Scale 10/17/2025 9:39 AM Yvette Whitehead RN * Airway Suctioning/Secretions Question Answer Date of Assessment Author Suction Type ETT 10/18/2025 12:48 AM Karen South, ENTEROSTOMAL NURSE Secretion Amount Scant 10/18/2025 12:48 AM Karen Hendrix, ENTEROSTOMAL NURSE Secretion Color Clear;White 10/18/2025 12:48 AM EST Karen Benito ENTEROSTOMAL NURSE Secretion Consistency Thick;Thin 10/18/2025 12:48 AM Karen Hendrix, ENTEROSTOMAL NURSE Suction Device Inline 10/18/2025 12:48 AM EST Karen Carter ENTEROSTOMAL NURSE Suction Tolerance Tolerated well 10/18/2025 12:48 AM E Karen Lovett ENTEROSTOMAL NURSE Suctioning Adverse Effects None 10/18/2025 12: 48 AM Karen Hendrix ENTEROSTOMAL NURSE * Home Living Question Answer Date of Assessment Author Patient able to provide accurate information at this time Yes 10/19/2025 9:09 AM Lary Oscar OT Assistance available 24 hour assistance 10/19/2025 9:0 9 AM Lary Oscar OT Home Entry More than 1 step to enter 10/19/2025 9:09 AM Lary Oscar OT Stairs to enter 2 10/19/2025 9:09 AM EST Lary Hoffman OT Type of Home House 10/19/2025 9:09 AM Lary Garcia OT Home Layout One level 10/19/2025 9:09 AM Lary Garcia OT Bathroom Shower/Tub Tub/shower unit 10/19/2025 9:09 AM Lary Oscar OT Bathroom Toilet Standard 10/19/2025 9:09 AM EST Lary Hoffman OT Bathroom Equipment Grab bars in shower 10/19/2025 9:09 AM Lary Oscar OT Home Equipment Single-point cane 10/19/2025 9:09 AM VIVIAN Mena Lary Ding, OT Lives With Spouse 10/19/2025 9:09 AM EST Lary Lobo OT * Patient Suicide Screen Question Answer Date of Assessment Author Over the past 2 weeks, have you felt down,depressed, or hopeless? No 10/17/2025 11:48 PM Kira Chandler RN Over the past 2 weeks, have you had thoughts of killing yourself? No 10/17/2025 11:48 PM Kira Chandler RN * Patient Belongings Question Answer Date of Assessment Author Does The Patient Have Belongings No 10/17/20 11:45 PM Kira Chandler RN * Safe Environment Question Answer Date of Assessment Author Patient Monitor N/A 10/22/2025 12:00 PM Charbel Weir RN Arm Bands On ID;Allergies 10/17/2025 9:39 AM Yvette Hoyos RN Call Light Within Reach Yes 10/17/2025 9:39 A M Yvette Whitehead RN Overbed Table Within Reach Yes 10/17/2025 9:39 AM Yvette Whitehead RN Bed In Lowest Position Yes 10/17/2025 9:39 AM Yvette Whitehead RN Bed Wheels Locked Yes 10/17/2025 9:39 AM Yvette Whitehead RN Side Rails/Bed Safety /2 10/17/2025 9:39 AM Yvette Whitehead RN NonSkid Footwear On;Patient in bed 10/17/2025 9:39 AM Yvette Whitehead RN Hourly Checks Awake;In bed 10/17/2025 9:39 AM Yvette Martinez RN Safety Equipment at Bedside Ambu bag/mask;Suction 10/22/2025 12:00 PM Charbel Cheatham RN * Mobility Question Answer Date of Assessment Author Distance Ambulated (ft) 0 10/22/20 12:00 PM Charbel Cheatham RN Assistive Device None 10/22/2025 12:0 0 PM Charbel Cheatham RN Transport Method Wheelchair 10/22/2025 12:0 0 PM Charbel Cheatham RN Head of Bed Self regulated 10/22/2025 12:00 PM Charbel Cheatham RN Anti-Embolism Devices Bilateral;Sequenti al compression devices, below knee 10/22/2025 12:00 PM Charbel Cheatham RN Anti-Embolism Intervention Off 10/22/2025 12:00 PM Charbel Cheatham RN * Hygiene Question Answer Date of Assessment Author Misc. Hygiene Back rub 10/18/2025 12:00 AM Kira George RN VAP Oral Care Other (Comment) 10/19/2025 3:51 AM Anne Pearson RN Skin Care Foam skin cleanser 10/22/2025 12:00 PM Charbel Do RN Bath/Shower Bath-partial 10/22/2025 12:00 PM Charbel Newsome RN Oral Care Teeth brushed;with s oft bristled tooth brush;Oral rinse/Suction;with mouthwash 10/22/2025 12:00 PM Charbel Cheatham RN Level of Assistance Minimal assist 10/22/2025 12:00 PM Charbel Cheatham RN * Precautions Question Answer Date of Assessment Author Precautions Aspiration;Bleeding 10/22/2025 12:[address] Charbel Ji RN * Family/Significant Other Communication Question Answer Date of Assessment Author Overnight Visitors Yes - Guidelines Discussed 10/22/2025 12:00 PM Charbel Cheatham RN Family/Support Person Visiting 10/22/2025 12:00 PM Charbel Cheatham RN * Continuous Passive Motion Question Answer Date of Assessment Author CPM No 10/22/2025 12:00 PM Charbel Newsome RN * Comfort and Environment Interventions Question Answer Date of Assessment Author Comfort Repositioned;Gown changed;Bed pad changed;Draw sheet changed;Complete bed change;Pillow support 10/22/2025 12:00 PM Charbel Cheatham RN Sleep Surface Low air-loss 10/22/2025 12:00 PM Charbel Cheatham RN Additional Comfort/Environmental Interventions Positioning frequency;Head of bed elevated;Heels/Feet;Ra nge of Motion 10/22/2025 12:00 PM Charbel Cheatham RN * Entertainment Question Answer Date of Assessment Author Entertainment Activities Television;Tablet 10/22/2025 12:00 PM Charbel Cheatham RN * Adult IBW/VT Calculations Question Answer Date of Assessment Author Low Range Vt 4 mL MALE 255.2 10/17/2025 9:39 AM Tito Paulinoda R Low Range Vt 4 mL FEMALE 237.2 10/17/2025 9:39 AM EST Celio Suzanne R IBW/kg (Calculated) Male 63.8 10/17/2025 9:39 AM EST Celio Suzanne R Low Range Vt 6 mL MALE 382.8 10/17/2025 9:39 AM EST Celio Suzanne R Moderate Range Vt 8 mL MALE 510.4 10/17/2025 9: 39 AM EST Celio Suzanne R High Range Vt 10 mL MALE 638 10/17/2025 9:39 AM EST Celio, Suzanne R IBW/kg (Calculated) FEMALE 59.3 10/17/2025 9:3 9 AM EST Celio Suzanne R Low Range Vt 6 mL FEMALE 355.8 10/17/2025 9:39 AM EST Celio Suzanne R Moderate Range Vt 8 mL FEMALE 474.4 10/17/2025 9:39 AM EST Celio Suzanne R High Range Vt 10 mL FEMALE 593 10/17/2025 9:3 9 AM Tito Paulinoda R * Oxygen Therapy/Pulse Ox Question Answer Date of Assessment Author O2 Therapy Room air 10/22/2025 11:25 AM Nate Conrad, ENTEROSTOMAL NURSE * Vasopressin Drip Question Answer Date of Assessment Author Volume (mL) Vasopressin 9.1 10/18/2025 10:32 AM Angela Del Cid RN * Assessment Question Answer Date of Assessment Author Prognosis Good 10/22/2025 12:09 PM Jen Hampton, PT * Plan Question Answer Date of Assessment Author Treatment/Intervention s LE strengthening/ROM;The rapeutic Activity;Continued evaluation;Therapeuti c Exercise;Endurance training;Stair Training;Neuromuscula r Reeducation;Equipment eval/education;Gait training 10/19/2025 10:22 AM Jen Radford, PT * ADL Screening Question Answer Date of Assessment Author Is this person blind or does he/she have serious difficulty seeing even when wearing glasses? No 10/17/2025 11:43 PM Kira Chandler R N Is this person deaf or does he/she have serious difficulty hearing? No 10/17/2025 11:43 PM Kira Chandler R N Does this person have seriou s difficulty walking or climbing stairs? (5 years old or older) No 10/17/2025 11:43 PM Kira Mishra RN Does this person have difficulty dressing or bathing? (5 years old or older) No 10/17/2025 11:43 PM Kira Chandler RN Because of a physical, menta l, or emotional condition, do you have serious difficulty concentrating, remembering, or making decisions? (5 years old or older No 10/17/2025 11:43 PM Kira Chandler R N Because of a physical, menta l, or emotional condition, do you have difficulty doing errands alone such as visiting a doctor's office or shopping? (15 years old or older) No 10/17/2025 11:43 PM Janki Chandler RN Is this person able to expre ss their needs and desires? Yes 10/17/2025 11:43 PM Urvashi Chandler RN Patient's Vision Adequate to Safely Complete Daily Activities 2 10/17/2025 11:43 PM Kira Chandler R N Patient's Judgement Adequate to Safely Complete Daily Activities 1 10/17/2025 11:43 PM Kira Chandler R N Patient's Memory Adequate to Safely Complete Daily Activities 1 10/17/2025 11:43 PM Kira Chandler R N Patient Able to Express Needs/Desires 1 10/17/2025 11:43 PM Kira Chandler R N Dressing Independent 10/17/2025 11:43 PM Kira Arevalo RN Grooming Independent 10/17/2025 11:43 PM Kira Arevalo RN Feeding Independent 10/17/2025 11:43 PM Kira Arevlao RN Bathing Independent 10/17/2025 11:43 PM Kira Arevalo RN Toileting Independent 10/17/2025 11:43 PM Kira Arevalo RN In/Out Bed Independent 10/17/2025 11:43 PM Kira Arevalo RN Walks in Home Independent 10/17/2025 11:43 PM Kira George RN Weakness of Legs None 10/17/2025 11:43 PM Kira Chandler RN Weakness of Arms/Hands None 10/17/2025 11:43 P M Kira Chandler RN Hearing - Right Ear Hearing aid 10/17/2025 11:43 PM E Kira Deras RN Hearing - Left Ear Hearing aid 10/17/2025 11:43 PM Kira Baker RN * Consults Question Answer Date of Assessment Author Spiritual Care Consult Needed No 10/17/2025 11:46 PM Kira Chandler RN Social Services Consult Needed No 10/17/2025 11:46 PM Kira Chandler RN * NPO Question Answer Date of Assessment Author Time of last liquid 7200 10/17/2025 9:32 AM Yvette Reyes RN Date of last liquid 01969 10/17/2025 9:32 AM Yvette Reyes RN Date of last solid 54697 10/17/2025 9:32 AM Yvette Whitehead RN Time of last solid 26743 10/17/2025 9:32 AM Yvette Whitehead RN * Restraint Monitoring: Upon Intiation, Start of Each Shift, With Any Change to Restraint Device(s) Question Answer Date of Assessment Author Behavioral/Mental Status A 10/17/2025 10:40 PM Kira Chandler RN Call light/Assistive Device( s) in reach N/A 10/17/2025 10:40 PM Kira Chandler R N Physical Status/Comfort Completed 10/17/2025 10:40 PM Kira Chandler RN Readiness for Release No 10/17/2025 10:40 PM Kira Chandler RN Nutrition/Elimination NPO 10/17/2025 10:40 PM Kira Chandler RN ROM/Repositioning P 10/17/2025 10:40 PM Kira Chandler RN * UCH RISK OF UNPLANNED READMISSION Answer Date of Assessment Author 22.55 10/22/2025 4:01 PM Sophie Mosley * Symptoms Question Answer Date of Assessment Author Any fevers within 7 days? No 10/17/2025 9:34 AM Yvette Whitehead RN New cough, change in a chronic cough in last 7 days? No 10/17/2025 9:34 AM Yvette Whitehead RN New SOB or change in SOB in last 7 days? No 10/17/2025 9:34 AM Yvette Whitehead RN Any muscle aches or body aches in last 7 days? No 10/17/2025 9:34 AM Lisha Whitehead RN * Is patient ready for visitor? Question Answer Date of Assessment Author Is patient ready for visitors? Yes 10/17/2025 9:34 AM Yvette Whitehead RN * Influenza Vaccine Screen - August through January Question Answer Date of Assessment Author Have you had an influenza vaccine this season? No 10/17/2025 9:30 AM Yvette Whitehead RN Influenza Vaccine Indicated? No, because patient declined 10/17/2025 9:30 AM Yvette Whitehead RN * AUDIT-C Score Answer Date of Assessment Author 0 10/17/2025 11:44 PM Kira Chandler RN * Intimate Partner Violence Question Answer Date of Assessment Author Within the last year, have y ou been humiliated or emotionally abused in other ways by your partner or ex-partner? No 10/17/2025 9:30 AM Susannah Whitehead RN Within the last year, have y ou been afraid of your partner or ex-partner? No 10/17/2025 9:30 AM Yvette Whitehead RN Within the last year, have y ou been raped or forced to have any kind of sexual activity by your partner or ex-partner? No 10/17/2025 9:30 AM Yvette Whitehead RN Within the last year, have y ou been kicked, hit, slapped, or otherwise physically hurt by your partner or ex-partner? No 10/17/2025 9:30 AM Yvette Whitehead RN * Alcohol Use Question Answer Date [...] 11:44 PM Kira Chandler R N * Pre-Procedure Information Question Answer Date of Assessment Author Patient Not applicable 10/17/2025 9:37 AM Yvette Whitehead RN * Respiratory Assessment Question Answer Date of Assessment Author Bilateral Breath Sounds Clear;Diminished 025 11:25 AM Nate Albrecht RRT Respiratory Pattern Regular 10/22/2025 1 1:25 AM Nate Albrecht RRT Chest Assessment Chest expansion symmetrical 10/22/2025 11:25 AM Nate Albrecht RRT Sputum How Obtained Cough on request 10/18/2025 12:05 PM Teresa Gillette RRT Position Semi-[place]'s 10/22/2025 11:25 AM Nate Albrecht RRT $Assessment Limited 10/18/2025 7:50 AM Teresa Gillette RRT [place] at bedside Yes 10/22/2025 11 :25 AM Nate Albrecht RRT * Airways Question Answer Date of Assessment Author Airway LDA ETT 10/18/2025 7:50 AM Teresa Ren RRT * Specimen Collection Status Question Answer Date of Assessment Author Specimen Collection Unit 10/22/2025 12:00 PM Charbel Agee RN * Temp (in Celsius) Answer Date of Assessment Author 36.8 10/22/2025 12:00 PM Charbel Cheatham RN * Comprehensive Pain Assessment (with every routine assessment) Question Answer Date of Assessment Author Patient's Stated Pain Goal No pain 10/22/2025 12: 00 PM Charbel Cheatham RN * Reflexes Question Answer Date of Assessment Author Cough Present 10/22/2025 8:00 AM Charbel Snyder RN Gag Present 10/22/2025 8:00 AM Charbel Snyder RN * Pantoprazole Question Answer Date of Assessment Author Volume (mL) Pantoprazole 10 10/22/2025 8:00 AM Charbel Cheatham RN * Vent Alarms Question Answer Date of Assessment Author Apnea Set 20 10/18/2025 7:50 AM EST Teresa Shane RRT Total Resp. Rate Alarm 40 10/18/2025 7:50 AM Teresa Gillette RRT Apnea VT 400 10/18/2025 7:50 AM Teresa Ren RRT Apnea RR 16 10/18/2025 7:50 AM Teresa Ren RRT Pressure Max (cm H2O) 40 10/18/2025 7:50 AM EST Teresa العلي ENTEROSTOMAL NURSE MV High (L/min) 20 10/18/2025 7:50 AM EST Teresa Brooke, ENTEROSTOMAL NURSE Insp Pressure Low (cm H2O) 0 10/17/2025 10: 38 PM EST Karen Washington ENTEROSTOMAL NURSE MV Low (L/min) 4 10/18/2025 7:50 AM EST Teresa Ashton, ENTEROSTOMAL NURSE Insp Pressure High (cm H2O) 40 10/18/2025 7: 50 AM EST Teresa لاعلي RRT * Vent Information Question Answer Date of Assessment Author FiO2 (set) 40 10/18/2025 7:50 AM Teresa Ren RRT Vent ID [id number] 10/18/2025 7:50 AM Teresa Ren RRT Vent Type Drager V-500 10/18/2025 7:50 AM Teresa Ren RRT Wave Form Decelerating ramp 10/18/2025 7:50 AM Teresa Gillette RRT Vent Mode Spont PS/PEEP 10/18/2025 7:50 AM Teresa Cuellar RRT Interface Invasive 10/18/2025 7:50 AM Teresa Ren RRT Daily Assessment of Readiness to Extubate Yes 10/18/2025 12:48 AM Fortunato Hendrxi RRT Ventilator Initiated Yes 10/17/2025 10:38 PM Karen Hendrix RRT * Norepinephrine Drip Question Answer Date of Assessment Author Volume (mL) Norepinephrine 0.53 10/18/2025 6:0 0 AM Kira Chandler RN * Patient Belongings Sent Home Question Answer Date of Assessment Author Belongings Sent Home Clothing;Hearing aid;Vision 10/17/2025 9:37 AM Yvette Whitehead RN Vision - Corrective Lenses Glasses 10/17/2025 9:37 AM Yvette Whitehead RN Hearing Aid Bilateral hearing aids 10/17/2025 9:37 AM Yvette Whitehead RN Clothing Pants;Shirt;Sweater; F ootwear;Socks;Underpa nts 10/17/2025 9:37 AM Yvette Whitehead RN Valuables sent home with? Stacy Serrano (Spouse) 10/17/2025 9:37 AM Yvette Whitehead RN * Integumentary Question Answer Date of Assessment Author Skin Color Appropriate for ethnicity 10/22/2025 8:00 AM Charbel Cheatham RN Skin Condition/Temp Warm;Dry 10/22/2025 8:00 AM Charbel Do RN Skin Integrity Surgical wound 10/22/2025 8:00 AM EST Charbel Mckeon RN Skin Turgor Non-tenting 10/22/2025 8:00 AM EST Charbel Moseley RN Integumentary (WDL) X 10/22/2025 8:00 AM Charbel Do RN Skin Location Abdomen 10/22/2025 8:00 AM EST Charbel Huber RN * C = Choice of Sedation and Analgesia Question Answer Date of Assessment Author Target Arousal Level (RASS) RASS -1 to +1 10/17/2025 10:45 PM Andres Mccain MD * A = Assess, Prevent and Manage Pain Question Answer Date of Assessment Author Pain Score 0 - No Pain 10/22/2025 12:00 PM Charbel Newsome RN * Discharge Planning Question Answer Date of Assessment Author Discharge Disposition Home with Home Care 10/22/2025 1 2:24 PM Citlaly Potter RN * Transportation Information Question Answer Date of Assessment Author ETA of Transport time of discharge 10/22/2025 12:24 PM Citlaly Potter RN Transfer Mode/Level of Care Family 10/22/2025 12:24 PM Citlaly Potter R N * Patient/Family Involvement Question Answer Date of Assessment Author SW/CM Name and phone # Citlaly SILVIO Zimmerman/ CM [phone] 10/22/2025 12:24 PM Citlaly Potter RN Role of the Barrel Lathe Operator Inside Explained Yes 10/22/2025 12:24 PM Citlaly Potter R N Role of the Foreign Language Interpreter Explained Yes 10/22/2025 12:24 PM Citlaly Potter R N Patient/Family Informed of Discharge Plan Yes 10/22/2025 12:24 PM Citlaly Potter R N Plan Reviewed With Patient, Family, or Significant Other Yes 10/22/2025 12:24 PM Citlaly Potter R N Patient or family are unable or unavailable to participate in patient's discharge plan No 10/22/2025 12:24 PM Citlaly Potter R N Patient and or family are aware and in agreement with the discharge plan Yes 10/22/2025 12:24 PM Pritesh Potter RN Plan reviewed with MD and other members of the health care team Yes 10/22/2025 12:24 PM Citlaly Potter R N Care Plan Completed Yes 10/22/2025 12:24 PM Citlaly Pelletier RN * Restraint Initiation: Upon Restraint Start Only Question Answer Date of Assessment Author Attending Provider Notification at Bedside 10:40 PM Kira Chandler RN Less Restrictive Alternative RS;VR 10/17/2025 1 0:40 PM Kira Chandler RN Criteria Explained to Release Yes 10/17/2025 10:40 PM Kira Chandler RN * Acute Triage Question Answer Date of Assessment Author Triage Priority High;QD between PT and OT 10/19/2025 1 0:22 AM Jen Radford, PT * LACE+ Score Answer Date of Assessment Author 53 10/22/2025 5:24 PM EST Naomy Foreman * Gait Question Answer Date of Assessment Author Gait Characteristics Steady;decreased lili;Increased trunk flexion;No LOB;R decreased step length;L decreased step length 10/22/2025 12:08 PM EST Jen Mckeon, PT Level of Assistance Contact Guard assistance;Stand By assistance 10/22/2025 12:08 PM Jen Radford PT Distance 250' 10/22/2025 12:08 PM EST Jen Napier, PT Assistive Device Rolling walker 10/22/2025 12:08 PM ES T Jen Mckeon, PT * Bed Mobility Question Answer Date of Assessment Author Sit to Supine Minimal assistance;i ncreased time to complete task;head of bed flat;towards the left 10/19/2025 10:19 AM Jen Radford, PT * Dysphagia Screen Question Answer Date of Assessment Author Are you deferring the screen ? Hold if pt is orally intubated or too lethargic No 10/18/2025 7:00 PM Anne Taveras RN * Secretion Management Question Answer Date of Assessment Author Patient has productive or fr equent cough 0 10/18/2025 7:00 PM Anne Taveras RN Difficulty managing secretio ns or drooling 0 10/18/2025 7:00 PM Anne Taveras RN Requires oral or nasal-trach eal suctioning 0 10/18/2025 7:00 PM Anne Taveras RN * Voice Question Answer Date of Assessment Author Hoarse or whispered voice 0 10/18/2025 7:00 PM Anne Taveras RN Wet/gurgly voice 0 10/18/2025 7:00 PM Anne Pearson RN Difficult to generate voice 0 10/18/2025 7: 00 PM Anne Taveras RN * Respiratory Status Question Answer Date of Assessment Author New or existing tracheostomy 0 10/18/2025 7 :00 PM Anne Taveras RN Requires O2 by mask or high- flow nasal canula 0 10/18/2025 7:00 PM Anne Taveras RN * Balance Question Answer Date of Assessment Author Sitting - Static Stand by Assistance 10/19/2025 10:19 AM EST Jen Mckeon, PT Standing-Static Assistive Device Rolling walker 10/19/2025 10:19 AM EST Richard Mckeonthi, PT Standing-Dynamic Assistive Device Rolling walker 10/19/2025 10:19 AM EST Richard Mckeonthi, PT Standing-Static Contact Guard Assistance;With Assistive Device 10/19/2025 10:19 AM EST Richard Mckeonthi, PT Sitting-Dynamic Stand by assistance 10/19/2025 1 0:19 AM EST Richard Mckeonthi, PT Standing-Dynamic Contact Guard Assistance;Minimal Assistance;With Assistive Device 10/19/2025 10:19 AM EST Richard Mckeonthi, PT * Gait Question Answer Date of Assessment Author Gait Characteristics Steady;decreased lili;Increased trunk flexion;No LOB;R decreased step length;L decreased step length 10/19/2025 10:19 AM EST Jen Mckeon, PT Level of assistance Contact Guard assistance;increased time to complete task 10/19/2025 10:19 AM Jen Radford, PT Assistive Device Rolling walker 10/19/2025 10:19 AM ES Jen Fournier, PT Distance (in feet) 5' 10/19/2025 10:19 AM ES Jen Fournier, PT * Transfers Question Answer Date of Assessment Author Bed to Chair Assistive Device Rolling walker 10/19/2025 10:56 AM Lary Oscar OT Sit to Stand Minimal assistance;increased time to complete task;up to assistive device;cues for hand placement 10/19/2025 10:56 AM Lary Oscar OT Bed to Chair Contact guard assistance;stand step;increased time to complete task;towards the left;with assistive device 10/19/2025 10:56 AM Lary Oscar OT Stand to Sit Minimal assistance;increased time to complete task;with assistive device;cues for hand placement 10/19/2025 10:56 AM Lary Oscar OT Sit to Stand Assistive Device Rolling walker 10/19/2025 10:56 AM Lary Oscar OT Stand to Sit Assistive Device Rolling walker 10/19/2025 10:56 AM Lary Oscar OT Unable to progress further due to hypertension with SBP to 190s 10/19/2025 10:56 AM Lary Oscar OT * Dysphagia Screen Feeding Status Question Answer Date of Assessment Author Patient has altered diet at baseline (dyshagia diet, NPO/TF) 0 10/18/2025 7:00 PM Anne Taveras , SILVIO * Hospital Course PT/OT Question Answer Date of Assessment Author Precautions none 10/19/2025 8:50 AM Jen Radford PT Hospital Course PT/OT Pt is 65 y.o M dir ect admit for liver transplant. 10/17: OR s/p OLT and L renal vein ligation. Intubated post-op, txf to SICU. 10/18: extubated. US: patent vasculature, possible steatosis. 10/19: NGT removed. reviewed 10/22. 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, MA A1AT, HTN, portal vein thrombosis, UTI, ascites, esophageal varices, moderate diastolic dysfunction, GERD 10/19/2025 8:50 AM Jen Radford PT * Goals Question Answer Date of Assessment Author Nursing Home Goal =STG 10/19/2025 10:21 AM Jen Radford, PT Patient will transition from sit to supine Stand-By assistance 10/19/2025 10:21 AM Jen Radford PT Patient will transfer from sit to stand Supervision 10/22/2025 12:09 PM EST Jen Mckeon PT Distance (in feet) 300' 10/22/2025 12 :09 PM Jen [place] [id number] 10/19/2025 10 :21 AM Jen Radford [place] [id number] 10/19/2025 10:21 AM Jen Radford PT Patient Stated Goal to go home 10/19/2025 1 0:21 AM Jen Radford, PT Patient will transition from supine to sit Stand-By assistance 10/19/2025 10:21 AM Jen Radford PT Patient will transfer bed/chair Stand-By assistance 10/19/2025 10:21 AM Jen Radford, PT Patient will ambulate Supervision;don ce (in feet) 10/22/2025 12:09 PM Jen Radford PT Patient will go up / down stairs Will tolerate assessment 10/19/2025 10:21 AM Jen Radford PT Collaborated with Patient 10/19/2025 10: 21 AM Jen Radford PT * Goals Question Answer Date of Assessment Author Patient will complete supine to sit in prep for ADLs Will tolerate assessment 10/19/2025 10:59 AM Lary Oscar, OT Patient will complete functional chair transfer Stand-by assistance 10/19/2025 10:59 AM EST Lary Ding OT Patient will complete toilet transfer Will tolerate assessment 10/19/2025 10:59 AM EST Lary Ding, OT Patient will complete grooming task Stand-by assistance 10/19/2025 10:59 AM Lary Oscar, OT Patient will complete lower body dressing Moderate assistance 10/19/2025 10:59 AM Lary Oscar, OT Nursing Home Goal Pt will tolerate a bathing assessment 10/19/2025 10:59 AM Lary Oscar, OT nursing home goal to be met in 2 weeks 10/19/2025 10:59 AM EST Lary Ding, OT Patient will complete toileting Will tolerate assessment 10/19/2025 10:59 AM EST Lary Ding, OT Patient stated goal to go home 10/19/2025 1 0:59 AM EST Lary Ding, OT Goals to be met in 1 week 10/19/2025 10 :59 AM Lary Oscar OT Collaborated with Patient 10/19/2025 10: 59 AM EST Lary Ding OT * Dysphagia Risk Factors Question Answer Date of Assessment Author Risk Factor Results Continue the screen below 10/18/2025 7:00 PM Anne Taveras RN Currently requires mechanical ventilation 0 10/18/2025 7:00 PM Anne Taveras RN Intubation greater 96 hours this admission 0 10/18/2025 7:00 PM Anne Taveras R N More than one intubation this admission 0 10/18/2025 7:00 PM Anne Taveras RN Risk Factors Total 0 10/18/2025 7:00 PM Anne Taveras RN * History Question Answer Date of Assessment Author Complaints of dysphagia or o bserved difficulty 0 10/18/2025 7:00 PM Anne Taveras RN Current diagnosis of PNA 0 10/18/2025 7:00 PM Anne Taveras RN History of aspiration or dysphagia 0 2024 7:00 PM Anne Taveras RN History of or current TBI 0 10/18/2025 7:00 PM Anne Taveras RN History of or current CVA 0 10/18/2025 7:00 PM Anne Taveras RN History of Head & Neck Surgery 0 10/18/2025 7:00 PM Anne Taveras RN * Oral Motor Status Question Answer Date of Assessment Author Dysarthric or slurred speech 0 10/18/2025 7 :00 PM Anne Taveras RN Tongue deviation 0 10/18/2025 7:00 PM Anne Pearson RN Facial Droop 0 10/18/2025 7:00 PM Anne Taveras RN Facial sensory loss 0 10/18/2025 7:00 PM Anne Bradley RN * SCREEN TOTAL Question Answer Date of Assessment Author Aspiration Screen total 0 10/18/2025 7:00 P M Anne Taveras RN Aspiration Screen result Proceed and complete the [place] 10/18/2025 7:00 PM Anne Taveras RN * WAGGONER DYSPHAGIA SCREEN Question Answer Date of Assessment Author [place] Dysphagia Screen Pass 10/18/2025 7:00 PM Anne Taveras RN * Risk Results Question Answer Date of Assessment Author Risk Results A: Begin PO diet/med s, no BURIAL AGENT consult 10/18/2025 7:00 PM Anne Taveras RN * Respiratory Vitals Question Answer Date of Assessment Author Mean Airway Pressure 5.9 10/18/2025 7:50 AM Teresa Kamara, BK Spont TV 902 10/18/2025 7:50 AM Teresa Ren RRT Ve 6.9 10/18/2025 7:50 AM Teresa Ren RRT * P.O. Intake Question Answer Date of Assessment Author Percent Meals Eaten (%) 90 10/22/2025 10:00 AM Charbel Cheatham, SILVIO * Patient's Post-Discharge Goals Question Answer Date of Assessment Author Patient's Post-Discharge goals Discharge safely to home 10/22/2025 12:23 PM Citlaly Potter RN * Calculated Energy Needs Question Answer Date of Assessment Author Мария Jett Equation (RMR) 1,730.66 10/17/2025 9:39 AM Suzanne Paulino Fluid Requirements (mL) 2,993.73 10/17/2025 9:39 A M Suzanne Paulino * PT 6 Clicks Question Answer Date of Assessment Author Help From Another Person Turning From Back to Side While Flat in Bed Without Using Siderails 3 10/22/2025 12:09 PM EST Jen Mckeon, PT Help From Another Person Moving From Lying On Back To Sitting Without Using Siderails 3 10/22/2025 12:09 PM EST Jen Mckeon, PT Help From Another Person Moving To And From Bed To Chair 3 10/22/2025 12:09 PM EST Jen Mckeon, PT Help From Another Person Standing Up From Chair Using Your Arms 3 10/22/2025 12:09 PM EST Jen Mckeon , PT Help From Another Person To Walk In Hospital Room 3 10/22/2025 12:09 PM EST Jen Mckeon, PT Help From Another Person Climbing 3-5 Steps With A Railing 3 10/22/2025 12:09 PM EST Jen Mckeon, PT PT 6 Clicks Score 18 10/22/2025 12:09 PM EST Jen Mckeon, PT -HL Score - Performed/Achieved 8 Walks 250 feet or more 10/22/2025 12:09 PM EST Jen Mckeon, PT * OT 6 Clicks Question Answer Date of Assessment Author Help From Another Person Eating Meals 4 03/2025 10:57 AM Lary Oscar OT Help From Another Person Zen ing Care Of Personal Grooming 3 10/19/2025 10:57 AM Lary Oscar, O T Help From Another Person To Put On/Take Off Regular Upper Body Clothing 3 10/19/2025 10:57 AM Lary Oscar, OT Help From Another Person To Put On/Take Off Regular Lower Body Clothing 2 10/19/2025 10:57 AM Lary Oscar, OT Help From Another Person Charlie leting, which includes using the toilet, bedpan or urinal 3 10/19/2025 10:57 AM Lary Oscar, OT Help From Another Person Bat luisa ( including washing ,rinsing,drying) 2 10/19/2025 10:57 AM Lary Ocampo OT OT 6 Clicks Score 17 10/19/2025 10:57 AM Lary Oscar OT * Anthropometrics Question Answer Date of Assessment Author BMI (Calculated) 35.53 10/17/2025 9:39 AM Suzanne Joiner R * Community Services at Discharge Question Answer Date of Assessment Author Home Health Care Name/Phone # post discharge [facility] ([phone]) 10/22/2025 12:24 PM Citlaly Potter RN Home Health Services Types at Discharge PT/OT/BURIAL AGENT;Halfway 10/22/2025 12:24 PM Citlaly Potter RN Community Services at Home post discharge Home Health Care 10/22/2025 12:24 PM Citlaly Potter RN Home Health Services agency list provided Yes 10/22/2025 12:24 PM Citlaly Potter RN * Hearing/Vision/Perception Question Answer Date of Assessment Author Hearing Wears bilateral hear ing aids 10/19/2025 10:19 AM Jen aRdford PT Baseline Vision Wears glasses all the time 10/19/2025 10:19 AM Jen Radford PT * Right Upper Extremity Question Answer Date of Assessment Author Right UE ROM Grossly WFL as obser princess during functional activities 10/19/2025 10:56 AM EST Strohm, Lary, OT Right UE Strength Grossly WFL (at leas t 3+/5) as observed during functional activities 10/19/2025 10:56 AM EST Strohm, Lary, OT Right UE Muscle Tone Normal 10/19/2025 10:56 AM EST Strohm, Lary, OT Right Hand Function Grossly WFL as obser princess during functional activity 10/19/2025 10:56 AM EST Strohm, Lary, OT * Left Upper Extremity Question Answer Date of Assessment Author Left UE ROM Grossly WFL as obser princess during functional activities 10/19/2025 10:56 AM EST Strohm, Lary, OT Left UE Strength Grossly WFL (at leas t 3+/5) as observed during functional activities 10/19/2025 10:56 AM EST Strohm, Lary, OT Left UE Muscle Tone Normal 10/19/2025 10:[address] Strodarren, Lary, OT Left UE Hand Function Grossly WFL as obs erved during functional activites 10/19/2025 10:56 AM EST Strohm, Lary, OT * Upper Extremity Question Answer Date of Assessment Author UE Assessment Defer to OT evaluati on for formal assessment 10/19/2025 10:19 AM EST Jen Mckeon, PT * Lower Extremity Question Answer Date of Assessment Author LE Assessment Strength WFL (at dimple st 3+/5) as observed during functional activity 10/19/2025 10:19 AM EST Jen Mckeon, PT * Justification for DME ordered Question Answer Date of Assessment Author Justification for DME ordered Walker 10/19/2025 10:22 AM Jen Radford, PT Walker Patient has decrease d weight bearing or impaired balance putting them at risk for falling without use of a walker. They are unable to utilize crutches or a cane to provide adequate support 10/19/2025 10:22 AM Jen Radford, PT * Mobility Recommendations for Staff Question Answer Date of Assessment Author Patient ability Patient ambulates in hallway 10/19/2025 10:22 AM Jen Radford, PT Assist needed with 1 person assist 10/19/2025 10:22 AM Jen Radford PT Equipment/ Precautions needed Requires assistive device;use gait belt 10/19/2025 10:22 AM EST Mckeon, Jen, PT Requires Assistive Device Rolling walker 10/19/2025 10:22 AM Jen Radford, PT * Goals Met Question Answer Date of Assessment Author Goals Met Sit to stand;Gait 10/22/2025 12:09 PM Jen Radford, PT * Bed Mobility Question Answer Date of Assessment Author Sit to Supine Minimal assistance;t owards the left;head of bed flat;increased time to complete task 10/19/2025 10:56 AM Lary Oscar, OT * Balance Question Answer Date of Assessment Author Sitting - Static Stand by Assistance 10/19/2025 10:56 AM Lary Oscar, OT Sitting-Dynamic Contact Guard Assistance 10/19/2025 10:56 AM Lary Oscar OT Standing-Static Contact Guard Assistance;With Assistive Device 10/19/2025 10:56 AM Lary Oscar OT Standing-Static Assistive Device Rolling walker 10/19/2025 10:56 AM Lary Oscar, OT Standing-Dynamic Contact Guard Assistance;With Assistive Device 10/19/2025 10:56 AM Lary Oscar, OT Standing-Dynamic Assistive Device Rolling walker 10/19/2025 10:56 AM Lary Oscar OT * CPOT Question Answer Date of Assessment Author Facial Expression 0 10/18/2025 4:00 AM Kira Chandler RN Body Movements 0 10/18/2025 4:00 AM Kira George RN Muscle Tension 0 10/18/2025 4:00 AM Kira George RN Compliance with the Ventilator (Intubated Patients) 0 10/18/2025 4:00 AM Kira Chandler RN Vocalization (Extubated Patients) 00 10/18/2025 4:00 AM Kira Chandler RN CPOT Score 0 10/18/2025 4:00 AM Kira Mishra RN Pain Interventions Medication (See MAR) 10/18/2025 4:0 0 AM Kira Chandler RN * Supplemental Oxygen Question Answer Date of Assessment Author Supplemental Oxygen None (Room air) 10/19/2025 10:56 A M Lary Oscar OT * Functional Status Score- ICU Question Answer Date of Assessment Author Rolling 3 10/19/2025 10:57 AM EST Stro hm, Lary, OT Supine to Sit 3 10/19/2025 10:57 [address] Str ohm, Lary, OT Sitting Balance 5 10/19/2025 10:57 AM EST S trohm, Lary, OT Sit to Stand 4 10/19/2025 10:57 AM EST Stro hm, Lary, OT Walking 1 10/19/2025 10:57 AM EST Stro hm, Lary, OT Functional Status Score - ICU 16 10/19/2025 10:57 AM EST Strohm, Lary, OT * Urine Output/Observations Question Answer Date of Assessment Author Urine Occurrence 1 10/22/2025 11:00 AM Charbel Cheatham RN * Stool Output/Observations Question Answer Date of Assessment Author Stool Occurrence 0 10/22/2025 12:00 PM Charbel Cheatham RN * Output Activities Question Answer Date of Assessment Author Activity Up to commode;Up to chair 10/22/2025 1:00 PM Charbel Cheatham RN Level of Assistance Minimal assist, patient does 75% or more 10/22/2025 1:00 PM Charbel Cheatham RN * Cognition Question Answer Date of Assessment Author Orientation Level Oriented X4 10/22/2025 12:08 PM Jen Radford PT * Mobility: AM-PAC/-[facility] Question Answer Date of Assessment Author Help Turning From Back to Side While Flat in Bed Without Using Siderails 3 10/22/2025 12:00 PM Charbel Cheatham RN Help Moving From Lying On Back To Sitting Without Using Siderails 3 10/22/2025 12:00 PM Charbel Cheatham RN Help Moving To And From Bed To Chair 3 10/22/2025 12:00 PM Charbel Cheatham RN Help Standing Up From Chair Using Your Arms 3 10/22/2025 12:00 PM Charbel Cheatham RN Help To Walk In Hospital Room 3 10/22/2025 12:00 PM Charbel Cheatham RN Help Climbing 3-5 Steps With A Railing 2 10/22/2025 12:00 PM Charbel Cheatham RN AM-PAC Mobility Score 17 10/22/2025 12:00 PM Charbel Cheatham RN Translation to [facility] 5 10/22/2025 12:00 PM Charbel Cheatham RN [facility] Score - Performed/Achieved Goal (Y/N) No 10/22/2025 12:00 PM Charbel Cheatham RN Early Mobility/Exercise Safety Screen (Med/Surg) Proceed with mobilization - No exclusion criteria met 10/22/2025 12:00 PM Charbel Cheatham RN Early Mobility/Exercise Safety Screen (ICU) Proceed with mobilization - No exclusion criteria met 10/22/2025 12:00 PM Charbel Cheatham RN Goal [facility] 5 Standing (1 or mor e minutes) 10/22/2025 12:00 PM Charebl Cheatham RN * Oxygen Therapy Question Answer Date of Assessment Author FiO2 40 10/18/2025 9:00 AM Angela Del Cid RN * Vitals Question Answer Date of Assessment Author BP 123/86 10/22/2025 2:00 PM Charbel Snyder RN * Neurological Question Answer Date of Assessment Author Cognition Ability to abstract;Appropriate judgement;Appropriate safety awareness;Appropriate attention/concentration;Ap propriate for developmental age;Follows simple commands 10/22/2025 8:00 AM Charbel Cheatham RN Speech Clear;Appropriate fo r developmental age 1210/22/2025 8:00 AM Charbel Cheatham RN LUE Motor Response Responds to commands 10/22/2025 8:0 0 AM Charbel Cheatham RN LLE Motor Response Responds to commands 10/22/2025 8:0 0 AM Charbel Cheatham RN RUE Motor Response Responds to commands 10/22/2025 8:0 0 AM Charbel Cheatham RN RLE Motor Response Responds to commands 10/22/2025 8:0 0 AM Charbel Cheatham RN * Gastrointestinal Question Answer Date of Assessment Author Last BM Date [id number] 10/22/2025 8:00 AM Charbel Snyder RN * Peripheral Vascular Question Answer Date of Assessment Author Generalized Edema Non-pitting 10/22/2025 8:00 AM Charbel Cheatham RN RLE Edema +2 10/22/2025 8:00 AM Charbel Snyder RN LLE Edema +2 10/22/2025 8:00 AM Charbel Snyder RN Edema Generalized;Right lo wer extremity;Left lower extremity 10/22/2025 8:00 AM Charbel Cheatham RN * Musculoskeletal Question Answer Date of Assessment Author RUBraden Full movement 10/22/2025 8:01 AM Charbel Cheatham RN RLE Swelling;Full movement 10/22/2025 8:01 AM Charbel Cheatham RN LUE Full movement 10/22/2025 8:01 AM Charbel Cheatham RN LLE Swelling;Full movement 10/22/2025 8:01 AM Charbel Cheatham RN Musculoskeletal (WDL) WDL 10/22/2025 8:01 AM Charbel Cheatham RN Musculoskeletal Additional Assessments No 10/22/2025 8:01 AM Charbel Cheatham RN * Psychosocial Question Answer Date of Assessment Author Patient Behaviors/Mood Calm;Cooperative 10/22/2025 8:0 0 AM Charbel Cheatham RN * BMI (Calculated) Answer Date of Assessment Author 35.6 10/17/2025 9:39 AM EST Promise Pickens R * Pulmonary Volume Expansion Question Answer Date of Assessment Author Number of breaths 10 10/22/2025 11:25 AM Nate Albrecht, BK Sputum Present 10/22/2025 11:25 AM EST Nate Tovar, ENTEROSTOMAL NURSE Treatment Tolerance Tolerated well 10/22/2025 11:25 AM EST Nate Wolfe, ENTEROSTOMAL NURSE Pulm Vol Expansion Goal 1250 10/22/2025 11:25 AM Nate Albrecht, ENTEROSTOMAL NURSE Pulm Vol Expansion Achieved [id number] 10/22/2025 11:25 AM Nate Albrecht , ENTEROSTOMAL NURSE * Balance Question Answer Date of Assessment Author Standing-Static Assistive Device Rolling walker 10/22/2025 12:08 PM EST Jen Mckeon, PT Standing-Dynamic Assistive Device Rolling walker 10/22/2025 12:08 PM EST Jen Mckeon, PT Sitting - Static Supervision 10/22/2025 12:0 8 PM EST Jen Mckeon, PT Sitting - Dynamic Supervision 10/22/2025 12: 08 PM Jen Radford, PT Standing - Static Stand-by assistance;With Assistive Device 10/22/2025 12:08 PM Jen Radford, PT Standing - Dynamic Stand-by assistance;Contact Guard Assistance;With Assistive Device 10/22/2025 12:08 PM Jen Radford, PT * Bed Mobility Question Answer Date of Assessment Author Supine to Sit Minimal assistance;i ncreased time to complete task;head of bed elevated;towards the right 10/22/2025 12:08 PM Jen Radford, PT * Transfers Question Answer Date of Assessment Author Stand to Sit with assistive device;cues for hand placement;Stand-by assistance 10/22/2025 12:08 PM Jen Radford, PT Sit to Stand Assistive Device Rolling walker 10/22/2025 12:08 PM Jen Radford, PT Stand to Sit Assistive Device Rolling walker 10/22/2025 12:08 PM Jen Radford, PT Sit to Stand Contact Guard assistance;up to assistive device;cues for hand placement 10/22/2025 12:08 PM Jen Radford, PT * Vitals Question Answer Date of Assessment Author Height 66 10/17/2025 9:39 AM Suzanne Paulino Weight 3520 10/17/2025 9:39 AM Suzanne Paulino Weight Source Stated Weight 10/17/2025 9:39 AM EST Suzanne Dupree R * Sensation Question Answer Date of Assessment Author Overall Sensation Patient denies any numbness/ tingling in BUE's/ BLEs 10/19/2025 10:19 AM Jen Radford, PT * Nutrition Prognosis Question Answer Date of Assessment Author Follow-Up Date for Monitoring 10/26 high liver edu done 10/22/2025 10:00 AM EST [address]ar Ar[address] RD * Discharge Planning Question Answer Date of Assessment Author Support Systems Spouse/significant other 10/17/2025 11 :47 PM Kira Chandler, SILVIO * Home Living Question Answer Date of Assessment Author Lives With Spouse 10/19/2025 9:09 AM Lary Garcia OT * Prior Function Question Answer Date of Assessment Author Leisure Activities fishing, play with [employer] 10/19/2025 9:09 AM Lary Oscar, OT Functional Mobility Independent ( no assistive device) 10/19/2025 9:09 AM EST Lary Ding OT Receives Help From None needed prior to admission 10/19/2025 9:09 AM EST Lary Ding, OT Leisure Hobbies-yes (Comment) 10/19/2025 9:09 AM EST Lary Ding, OT ADL Assistance Independent 10/19/2025 9:[address] ohmLary, OT IADL Assistance Independent 10/19/2025 9:[address] rohLary white, OT * Recommendation Question Answer Date of Assessment Author Recommendation Home PT 10/19/2025 10:22 AM EST Jen Guzman, PT Equipment Recommended Rolling walker 10/19/2025 10:22 AM EST Jen Mckeon PT * Recommendation Question Answer Date of Assessment Author Tub Transfer Bench Justification Patient is at risk to fall in shower environment;Patient has decreased activity tolerance requiring use of seat during bathing tasks 10/19/2025 10:59 AM Lary Oscar, OT Equipment Recommendations Tub Transfer Bench 03/2025 10:59 AM Lary Oscar, OT Recommendation Home OT 10/19/2025 10:59 AM Lary Oscar, OT * Assessment Question Answer Date of Assessment Author Assessment Decreased IADLs;Decreased Functional Mobility;Decreased activity tolerance;Decreased Balance;Decreased ADL status;Decreased self-care transfers 10/19/2025 10:57 AM Lary Oscar, OT Prognosis for OT goals Good 10:57 AM Lary Oscar OT * Plan Question Answer Date of Assessment Author Treatment Interventions ADL retraining;Activity Tolerance training;Patient/Fam perla training;Therapeutic Activity;Excercise;C ompensatory technique education;Functional transfer training;Continued evaluation;Equipment eval/education 10/19/2025 10:59 AM Lary Oscar OT OT Frequency during hospitalization minimum 3x/week 10/19/2025 10:59 AM Lary Oscar, OT * Patient Suicide Screen Question Answer Date of Assessment Author Over the past 2 weeks, have you felt down,depressed, or hopeless? No 10/17/2025 11:48 PM Kira Chandler RN In your lifetime,have you ev er attempted to kill yourself? No 10/17/2025 11:48 PM Kira Chandler RN * Safe Environment Question Answer Date of Assessment Author Arm Bands On ID;Allergies 10/17/2025 9:39 AM Yvette Hoyos RN * Mobility Question Answer Date of Assessment Author Elbows Eggcrate 10/22/2025 12:00 PM Charbel Cheatham RN Head Gelpad 10/22/2025 12:00 PM Charbel Cheatham RN Sacral Prevention Silicone Foam Dressing 025 12:00 PM Charbel Cheatham RN Distance Ambulated (ft) 0 10/22/20 25 12:00 PM Charbel Cheatham RN Assistive Device None 10/22/2025 12:0 0 PM Charbel Cheatham RN Repositioned Turns self 10/22/2025 12:00 PM Charbel Cheatham RN Transport Method Wheelchair 10/22/2025 12:0 0 PM Charbel Cheatham RN Head of Bed Self regulated 10/22/2025 12:00 PM Charbel Cheatham RN Heels/Feet Heels elevated off bed;Foot of bed elevated 10/22/2025 12:00 PM Charbel Cheatham RN Range of Motion Type Active;Passive;All extremities 10/22/2025 12:00 PM Charbel Cheatham RN Anti-Embolism Devices Bilateral;Sequenti al compression devices, below knee 10/22/2025 12:00 PM Charbel Cheatham RN Anti-Embolism Intervention Off 10/22/2025 12:00 PM Charbel Cheatham RN BODY Pressure Equalizing Mattress 10/22/2025 12:00 PM Charbel Cheatham RN Positioning Frequency Able to turn self 10/22/20 25 12:00 PM Charbel Cheatham RN Range of Motion Completed 10/22/2025 12:00 PM Charbel Cheatham RN * Hygiene Question Answer Date of Assessment Author Bath/Shower Bath-partial 10/22/2025 12:00 PM Charbel Newsome RN * Miscellaneous Devices Question Answer Date of Assessment Author Miscellaneous Devices Anti-Embolism Devices 10/22/2025 12:00 PM Charbel Cheatham RN * Adult IBW/VT Calculations Question Answer Date of Assessment Author IBW/kg (Calculated) Male 63.8 10/17/2025 9:39 AM Suzanne Paulino IBW/kg (Calculated) FEMALE 59.3 10/17/2025 9:3 9 AM Suzanne Paulino * Assessment Question Answer Date of Assessment Author Co-treatment performed to integrate mult iple skills simultaneously in order to challenge patient and advance progress;secondary to anticipated level of skilled assistance required to safely treat and mobilize patient 10/19/2025 10:21 AM Jen Radford, PT Assessment Impaired Strength;Impaired Activity Tolerance;Impaired ROM;Deconditioning;Impair ed Bed Mobility;Impaired Transfers;Impaired Gait;Impaired Balance;Impaired Stair Negotiation 10/22/2025 12:09 PM Jen Radford, PT Prognosis Good 10/22/2025 12:09 PM Jen Radford, PT * Plan Question Answer Date of Assessment Author Treatment/Interventions LE strengthening/ROM;Th erapeutic Activity;Continued evaluation;Therapeut ic Exercise;Endurance training;Stair Training;Neuromuscul ar Reeducation;Equipmen t eval/education;Gait training 10/19/2025 10:22 AM Jen Radford, PT PT Frequency during hospitalization minimum 3x/week 10/19/2025 10:22 AM Jen Radford, PT * ADL Screening Question Answer Date of Assessment Author Is this person blind or does he/she have serious difficulty seeing even when wearing glasses? No 10/17/2025 11:43 PM Kira Chandler R N Is this person deaf or does he/she have serious difficulty hearing? No 10/17/2025 11:43 PM Kira Chandler R N Does this person have seriou s difficulty walking or climbing stairs? (5 years old or older) No 10/17/2025 11:43 PM Kira Mishra RN Does this person have difficulty dressing or bathing? (5 years old or older) No 10/17/2025 11:43 PM Kira Chandler RN Because of a physical, menta l, or emotional condition, do you have serious difficulty concentrating, remembering, or making decisions? (5 years old or older No 10/17/2025 11:43 PM Kira Chandler R N Because of a physical, menta l, or emotional condition, do you have difficulty doing errands alone such as visiting a doctor's office or shopping? (15 years old or older) No 10/17/2025 11:43 PM Janki Chandler RN Is this person able to expre ss their needs and desires? Yes 10/17/2025 11:43 PM Urvashi Chandler RN Patient's Vision Adequate to Safely Complete Daily Activities 2 10/17/2025 11:43 PM Kira Chandler R N Patient's Judgement Adequate to Safely Complete Daily Activities 1 10/17/2025 11:43 PM Kira Chandler R N Patient's Memory Adequate to Safely Complete Daily Activities 1 10/17/2025 11:43 PM Kira Chandler R N Patient Able to Express Needs/Desires 1 10/17/2025 11:43 PM Kira Chandler R N Dressing Independent 10/17/2025 11:43 PM Kira Arevalo RN Grooming Independent 10/17/2025 11:43 PM Kira Arevalo RN Feeding Independent 10/17/2025 11:43 PM Kira Arevalo RN Bathing Independent 10/17/2025 11:43 PM Kira Arevalo RN Toileting Independent 10/17/2025 11:43 PM Kira Arevalo RN In/Out Bed Independent 10/17/2025 11:43 PM Kira Arevalo RN Walks in Home Independent 10/17/2025 11:43 PM Kira George RN Weakness of Legs None 10/17/2025 11:43 PM Kira Chandler RN Weakness of Arms/Hands None 10/17/2025 11:43 P M Kira Chandler RN Hearing - Right Ear Hearing aid 10/17/2025 11:43 PM Kira Marks RN Hearing - Left Ear Hearing aid 10/17/2025 11:43 PM Kira Baker RN * Consults Question Answer Date of Assessment Author Spiritual Care Consult Needed No 10/17/2025 11:46 PM Kira Chandler RN * Therapy Consults Question Answer Date of Assessment Author PT Evaluation Needed 2 10/17/2025 11:46 PM Kira Chandler RN OT Evalulation Needed 2 10/17/2025 11:46 PM Kira Chandler RN BURIAL AGENT Evaluation Needed 2 10/17/2025 11:46 PM Kira Chandler RN * Assistive Devices Question Answer Date of Assessment Author Assistive Devices None 10/17/2025 11:44 PM Kira Chandler RN * NPO Question Answer Date of Assessment Author NPO Except for Medications Yes 10/17/2025 9:3 2 AM Yvette Whitehead RN * Suicide Risk Assessment Question Answer Date of Assessment Author Is Admission due to self harm? No 10/17/2025 9:30 AM Yvette Whitehead RN Is patient expressing suicid al ideations? No 10/17/2025 9:30 AM Yvette Whitehead RN Has Patient Attempted Suicid e or Self Harm in past 72 hours? No 10/17/2025 9:30 AM Yvette Eng RN Is Patient experiencing acut e agitation, anxiety or insomnia? No 10/17/2025 9:30 AM Yvette Whitehead RN * Re-Assessment NRS Pain Score Answer Date of Assessment Author 0 - No Pain 10/19/2025 8:20 AM Umu Del Cid RN * Transfers Question Answer Date of Assessment Author Sit to Stand Minimal assistance;increased time to complete task;up to assistive device;cues for hand placement 10/19/2025 10:19 AM Jen Radford PT Stand to Sit Minimal assistance;increased time to complete task;with assistive device;cues for hand placement 10/19/2025 10:19 AM Jen Radford, PT Sit to Stand Assistive Device Rolling walker 10/19/2025 10:19 AM Jen Radford, PT Stand to Sit Assistive Device Rolling walker 10/19/2025 10:19 AM Jen Radford, PT * Skip to questions 9-10? Answer Date of Assessment Author 1 10/17/2025 11:44 PM Kira Chandler RN * Anthropometrics Question Answer Date of Assessment Author Weight Change 0 10/17/2025 9:39 AM EST Suzanne Donnelly R * Comprehensive Pain Assessment (with every routine assessment) Question Answer Date of Assessment Author Patient's Stated Pain Goal No pain 10/22/2025 12: 00 PM Charbel Cheatham RN * Vent Information Question Answer Date of Assessment Author Daily Assessment of Readines s to Extubate Yes 10/18/2025 12:48 AM EST Karen Washington RRT * Integumentary Question Answer Date of Assessment Author Skin Color Appropriate for ethnicity 10/22/2025 8:00 AM Charbel Cheatham RN Skin Condition/Temp Warm;Dry 10/22/2025 8:00 AM Charbel Do RN Skin Integrity Surgical wound 10/22/2025 8:00 AM Charbel Weir RN Skin Location Abdomen 10/22/2025 8:00 AM Charbel Newsome RN * A = Assess, Prevent and Manage Pain Question Answer Date of Assessment Author Pain Score 0 - No Pain 10/22/2025 12:00 PM Charbel Newsome RN documented as of this encounter Mental Status * Cody Agitation Sedation Scale Question Answer Entry Date Author Cody Agitation Sedation Scale 0 025 8:00 AM Charbel Cheatham RN * CAM-ICU Question Answer Entry Date Author Feature 1: Acute Onset or Fluctuating Course No 10/22/2025 12:00 PM Charbel Cheatham RN Feature 2: Inattention No 10/22/2025 12:00 P M Charbel Cheatham RN Feature 3: Altered Level of Consciousness No 10/22/2025 12:00 PM Charbel Cheatham RN Feature 4: Disorganized Thinking No 10/22/20 25 12:00 PM Charbel Cheatham RN Overall CAM-ICU Negative 10/22/2025 12:00 PM Charbel Weir RN * Tania Coma Scale Question Answer Entry Date Author Eye Opening 4 10/22/2025 8:00 AM Charbel Snyder RN Best Motor Response 6 10/22/2025 8:00 AM Charbel Do RN Best Verbal Response 5 10/22/2025 8:00 AM Charbel Agee RN [place] Coma Scale Score 15 10/22/2025 8:00 AM Charbel Cheatham RN * Cognition Question Answer Entry Date Author Overall Cognitive Status WFL 025 10:18 AM EST Jen Mckeon, PT Cognitive Assessment Orientation Level;Arousal/ Alertness;Behavior;Follow ing Commands;Safety Judgment;Insight 10/19/2025 10:18 AM EST Jen Mckeon, PT Behavior Appropriate;Cooperat silverio;M otivated 10/22/2025 12:08 PM EST Jen Mckeon, PT Arousal/Alertness Alert 10/22/2025 12: 08 PM EST Jen Mckeon, PT Following Commands Follows all commands and directions without difficulty 10/22/2025 12:08 PM EST Jen Mckeon, PT Safety Judgment Good awareness of sa fety precautions 10/22/2025 12:08 PM EST Jen Mckeon, PT Insight Demonstrated intact insight into limitation and abilities to complete ADL's safely 10/22/2025 12:08 PM EST Jen Mckeon, PT Orientation Level Oriented X4 10/22/2025 12: 08 PM EST Jen Mckeon, PT * Oxygen Therapy Question Answer Entry Date Author SpO2 96 10/22/2025 2:00 PM Charbel Snyder RN O2 Flow Rate (L/min) 2 10/20/2025 12:00 AM Anne Taveras RN * Vitals Question Answer Entry Date Author BP 123/86 10/22/2025 2:00 PM Charbel Snyder RN Pulse 74 10/22/2025 2:00 PM Charbel Snyder RN Resp 15 10/22/2025 2:00 PM Charbel Snyder RN * Neurological Question Answer Entry Date Author Level of Consciousness Alert 8:00 AM Charbel Cheatham RN Cognition Ability to abstract;Appropriate judgement;Appropriate safety awareness;Appropriate attention/concentration;Ap propriate for developmental age;Follows simple commands 10/22/2025 8:00 AM Charbel Cheatham RN Neuro (WDL) WDL 10/22/2025 8:00 AM Charbel Cheatham RN Neuro Symptoms None 10/22/2025 8:00 AM Charbel Cheatham RN * Psychosocial Question Answer Entry Date Author Patient Behaviors/Mood Calm;Cooperative 10/22/2025 8:0 0 AM Charbel Cheatham RN * Neurological Question Answer Entry Date Author Neuro (WDL) WDL 10/17/2025 9:39 AM EST Yvette Orellana RN * Comprehensive Pain Assessment (with every routine assessment) Question Answer Entry Date Author Sedation Level Score 2 10/22/2025 12:00 PM Charbel Cheatham RN * Integumentary Question Answer Entry Date Author Skin Condition/Temp Warm;Dry 10/22/2025 8:00 AM ES T Charbel Ji RN * C = Choice of Sedation and Analgesia Question Answer Entry Date Author Target Arousal Level (RASS) RASS -1 to +1 10/17/2025 10:45 PM Duarte Mccain MD * A = Assess, Prevent and Manage Pain Question Answer Entry Date Author Pain Assessment No/denies pain 10/22/2025 12:00 PM Charbel Cheatham RN documented in this encounter Discharge Summaries * LAISHA Hernandez - 10/22/2025 1:32 PM EST [facility] Inpatient Discharge Summary Patient: David Serrano Age: 65 y.o. CSN: [id number] Date of Admission: 10/17/2025 Date of Discharge: [...] Case IDs Date Procedure Surgeon Location Status [id number] 10/17/25 TRANSPLANT LIVER Vani Winkler MD OR [facility] Lines and tubes: Patient Lines/Drains/Airways Status Active LDAs None Other Procedures / Pertinent Imaging: See Imaging Tab Consulting Services (include reason) SICU PT/OT Hospice Registered Nurse Allergies Allergies[1] Discharge Medications Medication List TAKE [...] scale: Blood glucose 150-199 mg/dL =1units, Blood -267 mg/dL =2 units, Blood glucose 250-299 mg/dL [...] Your Medications These medications were sent to [facility] [address] [place] [id number] Hours: Wednesday - Wednesday: 8:00AM - 6:00PM [...] prn. Discharged on a bowel regimenas needed. [facility] - PT/[place] evaluated patient and recommended home PT/OT. ENDO - A1C is 4.0. Pt was not on diabetic regimen prior to arrival. Patient developed steroid-induced hyperglycemia 2/2 steroid regimen. Discharged home on the following regimen: LDSSI. Patient met w/ hematology nurse educator prior to discharge. HEME - Post-operatively, [...] home care (to start 10/29 due to [facility] staffing, outpatient labs this week). Labs to be drawn qMon/Thurs. Patient and family received post-transplant education from photography coordinator as well as medication teaching from [...] Gelatein Plus- clear thickened, gelatin high protein ([facility] and [facility] only) As listed above 4. Discharge specific orders: None required 5. Core measures followed: (if this is a core measure patient) Discharge Weight: 220 lb (99.8 kg) Disposition Home with assistance Home with supervision Home with Home Health Follow-Up Appointments Future Appointments Date Time Provider Department Center 10/30/2025 9:00 AM [facility]ERY, [facility] [address] [address] Signed: LAISHA HERNANDEZ 10/22/2025, 1:32 PM [1] [...] Zimmerman RN - 10/22/2025 12:26 PM EST [facility] Care Management Discharge Summary Patient name: David Serrano Patient : 1960 Age: 65 y.o. Gender: male Patient emergency contact: Extended Emergency Contact Information Primary Emergency Contact: Stacy Serrano [address]: [address] [place] [address] Mobile Relation: Spouse Attending provider: Vani Winkler MD Primary care physician: PROVIDER NOT IN SYSTEM The MD has indicated that the patient is ready for discharge. David Serrano was referred and accepted at [facility] ([phone]) for PT/OT and SN (lab draws) . [...] Services at Home post discharge: [facility] Name/Phone # post discharge: [facility] ([phone]) Home Health Services Types at Discharge: PT/OT/BURIAL AGENT, [facility] ([facility] for lab draws.) Citlaly Zimmerman RN/CM [phone] documented in this encounter Discharge Instructions * [...] kept under 2 gm/day. Please discuss withyour client care coordinator if you have any question about appropriate dose to take. Other Instructions: Call post-liver transplant clinic with questions [phone] or call [facility] at [phone] and ask for the liver photography coordinator ophthalmic surgeon if you experience any of the following: [...] Date and time as instructed by your photography coordinator in liver transplant clinic in [facility], 3rd floor or Video Visit. PLEASE GET [...] 10/18/2025 pen needle, diabetic 32 gauge x /32 Ndle For use with insulin pen. Use as instructed. 100 each 2 10/22/2025 3:31 PM EST 10/18/2025 polyethylene glycol (GLYCOLAX) 17 gram/dose powder Mix 1 capful (17 g) in 8 ounces of fluid and drink by mouth daily as needed for constipation. 238 g 10/22/2025 3:31 PM EST 10/18/2025 senna-docusate (SENNOSIDES-DOCU SATE SODIUM) 8.6-50 mg per tablet Take 1 tablet by mouth at bedtime as needed for constipation. 30 tablet 10/22/2025 3:31 PM EST 10/18/2025 oxyCODONE (ROXICODONE) 5 MG immediate release tabletIndication [...] tablet 10/22/2025 3:31 PM EST 10/22/2025 5 predniSONE (DELTASONE) 5 MG tablet Take 6 tablets by mouth in the morning on 10/23, then take 5 tablets by mouth on 10/24, and then starting on 10/25, take 4 tablets daily 123 tablet 2 10/22/2025 3:31 PM EST 10/22/2025 5 sod phos di, mono-K phos mono (PHOSPHORUS) 250 mg Tab tablet Take 250 mg by mouth 2 times a day. 14 tablet 10/22/2025 3:31 PM EST 10/22/2025 5 sulfamethoxazole -trimethoprim (BACTRIM) 400-80 mg per tablet Take 1 tablet by mouth daily. 30 tablet 2 10/22/2025 3:31 PM EST 10/18/2025 5 tacrolimus (PROGRAF) 1 MG capsule Take 5 capsules (5 mg total) by mouth 2 times a day. 600 capsule 5 10/22/2025 3:31 PM EST 10/22/2025 5 documented [...] Immunosuppression schedule as per Education Note by photography coordinator earlier this admission. Reviewed discharge medications [...] in clinic? (If significant deficits, communicate with photography coordinator): Standard continual education Future medications to [...] Cori Womack PharmD Solid Organ Transplant Clinical Diabetes Educator Contact via [employer] Secure Chat * Cori Womack PharmD - [...] Cori Womack PharmD Solid Organ Transplant Clinical Diabetes Educator Contact via [employer] Secure Chat * Jen Mckeon, PT - 10/22/2025 12:10 PM EST Physical Therapy Treatment Name: David Serrano : 1960 Attending Physician: Vani Winkler MD Admission Diagnosis: TRANSPLANT LIVER Date: 10/22/2025 [facility] [address] Reviewed Pertinent hospital course: Yes Hospital Course [...] Long-term goal to be met by: 11/02/25 Digital Developer Goal : =STG Patient/Family Education Educated patient [...] Surgeon: Vani Winkler MD; Location: [facility]; Service: Transplant; Laterality: N/A; [1] Patient Active Problem List Diagnosis Alcoholic cirrhosis (CMS-HCC) Ascites Hepatic encephalopathy (CMS-HCC) Esophageal varices (CMS-HCC) Pre-transplant evaluation for chronic liver disease Encounter for pre-transplant evaluation for liver transplant * Leticia Lomeli MD - 10/22/2025 7:07 AM EST Transplant Surgery Progress Note Name: David Serrano CSN: [id number] Date: 10/22/2025 7:07 AM OR Date: 10/17/2025 [...] LFTs - pred taper, cellcept - tac 3/ - Advance diet as tolerated, Regular diet Acute hypoxic respiratory failure-improving - extubated 10/18 - sating well on RA PPX: SQH, SCD, PPI Dispo: Floor v discharge LETICIA LOMELI MD Transplant Surgery [facility] Surgery Resident Cosigned by Vani Winkler [...] Surgery Progress Note Name: David Serrano CSN: [id number] Date: 10/21/2025 6:26 AM OR Date: 10/17/2025 [...] Recent Labs 10/18/25 2220 10/19/25 0829 10/19/25 230 INR 1.8* 1.5* 1.4* PROTIME 21.9* 19.1* [...] Dispo: Floor KEITH JUSTIN MD Transplant Surgery [facility] Surgery Resident Cosigned by Vani Winkler [...] Surgery Progress Note Name: David Serrano CSN: [id number] Date: 10/20/2025 6:42 AM OR Date: 10/17/2025 Subjective 3 Days Post-Op S/p OLT EBL 11L Started TAC yesterday NG removed yesterday, sips of clears Cr elevated 7.1 however stable Objective Vitals: Temp: [97.8 ??F (36.6 ??C)-98.2 ??F (36.8 ??C)] 97.8 ??F (36.6 ??C) Heart Rate: [61-77] 72 Resp: [9-19] 14 BP: (137-163)/(84-101) 162/84 Arterial Line BP: (138-211)/(67-125) 162/79 I/O: Date 10/19/25 07 - 10/20/25 0659 10/20/25 07 - 10/21/25 0659 Shift 2423-0091 3506-1072 5265-1617 24 Hour Total 5758-1043 9202-7333 6364-5672 24 Hour Total INTAKE P.O. 100 100 P.O. 100 100 I.V.(mL/kg) 552.9(5.5) 552.9(5.5) Volume (mL) Insulin 7.4 7.4 Volume (mL) (electrolyte-R (pH 7.4) (NORMOSOL-R pH 7.4) IV solution) 545.5 545.5 NG/GT 30 30 Flushes (mL) ([REMOVED] NG/OG Tube Nasogastric Right nostril) 30 30 IV Piggyback 150.3 150.3 Volume (mL) (AMPicillin 1 g in sodium chloride 0.9% 100 mL IVPB ([id number])) 100 100 Volume (mL) (mycophenolate (CELLCEPT) 500 [...] place Labs: Recent Labs 10/19/25 0829 10/19/25 23010/20/25 0531 WBC 9.8 7.0 6.1 HGB 9.6* 8.9* 8.5* HCT 26.8* 25.8* 24.6* PLT 22* 20* 17* Recent Labs 10/18/25221910/19/25 0829 10/19/25 230 NA 146 145 144 K 3.1* [...] displayed. Recent Labs 10/18/25 22210/19/25 0829 10/19/25 230 AST 717* 450* 223* ALT 792* [...] later today LETICIA LOMELI MD Transplant Surgery [facility] Surgery Resident Cosigned by Vani Winkler [...] month [] 21. History of unexplained stillborn infant, recurrent spontaneous (3 or more), premature with toxemia or growth restricted Each of the following criteria receives 2 [...] the Caprini Risk Score of [address] [facility] transplant protocol, I recommend discharging on heparin 5,000 units subcutaneously q8h (facility) or Eliquis 2.5 mg PO BID (home) for 30 days total. Endof chemoprophylaxis: 11/17/25. Cori Womack PharmD Solid Organ Transplant Clinical Diabetes Educator Contact via [employer] Secure Chat * Leticia Lomeli MD - 10/19/2025 12:10 PM EST Transplant Surgery Progress Note Name: David Serrano CSN: [id number] Date: 10/19/2025 12:10 PM OR Date: 10/17/2025 [...] 0659 10/19/25 0700 - 10/20/25 0659 Shift 0394-1314 2583-3508 8955-7104 24 Hour Total 4557-0513 0439-8575 3226-4788 24 Hour Total INTAKE P.O. 50 50 [...] in sodium chloride 0.9% 100 mL IVPB ([id number])) 100 200 100 400 Volume (mL) (mycophenolate [...] Output (mL) (IUC (Iniguez) 16 Fr.) 570 266 218 3675 260 260 Emesis/NG output 200 200 Drainage [...] iniguez in place Labs: Recent Labs 10/18/25 17410/18/25 2220 10/19/25 0829 WBC 11.8* 11.4* 9.8 HGB 10.0* 9.5* 9.6* HCT 28.3* 26.9* 26.8* PLT 22* 22* 22* Recent Labs 10/18/25 1747 10/18/25 2220 10/19/25 0829 NA 144 146 145 [...] later today LETICIA LOMELI MD Transplant Surgery 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 to be met in: 2 weeks [...] Surgeon: Vani Winkler MD; Location: [facility]; Service: Transplant; Laterality: N/A; [1] Patient [...] Admission Diagnosis: TRANSPLANT LIVER Date: 10/19/2025 [facility] [address] Reviewed Pertinent hospital course: Yes Hospital Course [...] Long-term goal to be met by: 11/02/25 Digital Developer Goal : =STG Patient/Family Education Educated patient [...] Surgeon: Vani Winkler MD; Location: [facility]; Service: Transplant; Laterality: N/A; [1] Patient Active Problem List Diagnosis Alcoholic cirrhosis (CMS-HCC) Ascites Hepatic encephalopathy (CMS-HCC) Esophageal varices (CMS-HCC) Pre-transplant evaluation for chronic liver disease Encounter for pre-transplant evaluation for liver transplant * Leticia Lomeli MD - 10/18/2025 12:58 PM EST Transplant Surgery Progress Note Name: David Serrano CSN: [id number] Date: 10/18/2025 12:58 PM OR Date: 10/17/2025 [...] 10/17/25699 - 10/18/2565810/18/25699 - 10/19/25 0659 Shift 6889-1489 0387-8324 3697-0996 24 Hour Total 7064-8151 9424-8962 2226-2215 24 Hour Total INTAKE I.V.(mL/kg) 8000(80.2) 394.1(3.9) [...] 30 60 30 30 IV Piggyback 120 805 370 7799 62.6 62.6 Volume (mL) (methylPREDNISolone sodium succinate (SOLU-medrol) 500 mg in sodium chloride 0.9 % 100 mL IVPB) 100 100 Volume (mL) (AMPicillin 2 g in sodium chloride 0.9% 100 mL IVPB (Lwhg0Tqp)) 100 200 300 Volume (mL) (albumin human bottle 5%) 500 500 Volume (mL) (albumin human bottle 25%) 50 50 Volume (mL) (AMPicillin 1 g in sodium chloride 0.9% 100 mL IVPB (Pwxl2Yxr)) 97.4 97.4 Volume (mL) (mycophenolate (CELLCEPT) 500 [...] IV Push) 20 20 Shift Total(mL/kg) 120(1.2) 52995(138.6) 1105.1(11.1) 34241.1(150.9) 143.4(1.4) 143.4(1.4) OUTPUT Urine(mL/kg/hr) 1850(2.3) 1000(1.3) 2850(1.2) [...] 2 Abdomen Inferior;Lateral;Left) 100 300 400 Blood 15912 11976 Est Blood Loss 63279 54937 Shift Total(mL/kg) 37864(130.5) 1550(15.5) 54816(146.1) 355(3.6) 355(3.6) Weight (kg) 99.8 99.8 99.8 [...] EXAM: US ABDOMEN LIMITED EXAM: US DUPLEX [id number] COMPLETE INDICATION: Post-op liver transplant Day 1 [...] at 10/18/2025 9:53 AM EST US Duplex Dgy-Zji-Ogfffec Comp Result Date: 10/18/2025 EXAM: US ABDOMEN LIMITED EXAM: US DUPLEX [id number] COMPLETE INDICATION: Post-op liver transplant Day 1 [...] below level of diaphragms and outside the lgboh-jo-znpz. Right internal jugular approach pulmonary artery catheter [...] overlies the midthoracic trachea 2. Pulmonary artery cathetertip overlies the main right pulmonary artery. No radiographic pneumothorax. 3. Bibasilar atelectasis, left greater than right. 4. Enteric suction tube tip and sidehole overlie the gastric body ReportVerified by: Oskar Kebede DO at 10/17/2025 11:50 [...] Dispo: SICU LETICIA LOMELI MD Transplant Surgery [facility] Surgery Resident Cosigned by Vani Winkler [...] Cori Womack PharmD Solid Organ Transplant Clinical Diabetes Educator Contact via [employer] Secure Chat * Karen Washington RRT - 10/18/2025 5:32 AM EST SBT started at 0435 completed at 0520 Patient on +5 and 40% RR: 7-12 Vt: 679-940 RSBI: 10-12 AB.34/48/84/25 Patient placed on Delta 5 post SBT documented in this encounter H&P Notes * Aspen Parr MD - 10/17/2025 10:27 AM EST Transplant Surgery History and Physical Patient: David Serrano CSN: [id number] History CC: ESLD HPI: David Serrano is [...] Resource Strain: Low Risk (06/15/2025) Received from [facility] Overall Financial Resource Strain (CARDIA) How hard is it for you to pay for the very basics like food, housing, medical care, and heating?: Not hard at all Food Insecurity: No Food Insecurity (06/15/2025) Received from [facility] Hunger Vital Sign Within the past 12 months, you worried that your food would run out before you got the money to buymore.: Never true Within the past 12 months, the food you bought just didn't last and you didn't have money to get more.: Never true Transportation Needs: No Transportation Needs (06/15/2025) Received from [facility] PRAPARE - Transportation In the past 12 months, has lack of transportation kept you from medical appointments or from getting medications?: No In the past 12 months, has lack of transportation kept you from meetings, work, or from getting things needed for daily living?: No Physical Activity: Inactive (06/15/2025) Received from [facility] Exercise Vital Sign On average, how many days per week do you engage in moderate to strenuous exercise (like a brisk walk)?: 0 days On average, how many minutes do you engage in exercise at this level?: 0 min Stress: No Stress Concern Present (06/15/2025) Received from [facility] [employer] of Occupational Health - Occupational Stress Questionnaire Do you feel stress - tense, restless, nervous, or anxious, or unable to sleep at night because yourmind is troubled all the time - these days?: Only a little Social Connections: Socially Integrated (06/15/2025) Received from [facility] Social Connection and Isolation Panel In a typical week, how many times do you talk on the phone with family, friends, or neighbors?: More than three times a week How often do you get together with friends or relatives?: More than three times a week How often do you attend scientology or nondenominational services?: More than 4 times per year Do you belong to any clubs or organizations such as scientology groups, unions, fraternal [...] Housing Stability: Low Risk (06/15/2025) Received from [facility] Housing Stability Vital Sign In the last [...] admitted to SICU post-op. ASPEN PARR MD [facility] Surgery Liver Transplant Pager: [phone] 10:28 AM 10/17/2025 Cosigned by Vani [...] Name: David Serrano Date: 1960 Billing #: [id number] Date of Procedure: 10/17/2025 Diagnosis: Chronic Hepatic [...] branch patch. Ligation of left renal vein. Yvfz-ge-bvej anastomosis performed without stent. Portal Flow Modulation [...] donor was ABO O and UNOS ID [id number], Match Run [id number]. This was a 56 yearold brain donor [...] of available help, Dr. Nugent served as preschool assistant teacher surgeon. Procedure: Back bench preparation of donor [...] After completion of the outflow anastomosis, a Hong Konger clamp was placed across the donor suprahepatic [...] artery flows were then measured with the Wiggio device. The portal flow was 840 and [...] no further bleeding, we then performed a oerc-ec-yvtz anastomosis. There was no stent placed. This [...] Name: David Serrano Date: 1960 Billing #: [id number] Date of Procedure: 10/17/2025 Diagnosis: Chronic Hepatic Failure without coma Procedure: 1. Back Bench Preparation Donor Liver Attending surgeons: Felice Nugent III, MD Pipe Organ Installer Surgeon(s): Morena Haley MD Indications for Procedure: This is a 65 y.o.-year-old male who has alcohol and A1AT liver disease and chronic liver failure complicated by ascites and HE with a MELD score of 20. A donor organ became available. This donor was ABO O and UNOS ID [id number], Match Run [id number]. This was a 56 yearold brain donor [...] MD Giulia Bencini, MD Anesthesia: General Staff: Lending Activities Supervisor: Mita Hernandez RN; Aspen Coleman RN Relief Lending Activities Supervisor: Claritza Mckinnon RN; Jonatan De La O RN; Clair Sanders RN Scrub Person: Samson Mcbride RN Fellow: Chelsie Haley MD Float: Nadia Woodruff, SILVIO; Jyotsna Singleton, SILVIO; Farzana Hamilton; Lizz Cota RN Resident: Aspen Parr MD Estimated Blood Loss: 11 L Specimens: Barrow liver and gallbladder Left liver core needle biopsy Right liver core needle biopsy Peritoneal fluid for culture Drains: Drain 1 Abdomen Inferior;Lateral;Right (Active) Number of days: 0 Drain 2 Abdomen Inferior;Lateral;Left (Active) Number of days: 0 IUC (Iniguez) 16 Fr. (Active) Number of days: 0 Transplant-Specific Information UNOS ID: [id number] Cross-clamp: 10/17/25 1250 Out of ice: 10/17/25 [...] 1:42 PM ESTAssociated Order(s): IP CONSULT TO HEATING MECHANIC [facility] Transplant Discharge Education Note Assessment: Received [...] 4 - Demonstrates understanding/competency Naomy Gomes RN, MSN,[facility] Diabetes Education Office [phone] Schedule: M-F 8:00am-4:30pm * Oskar Arango RD - 10/22/2025 9:08 AM EST TXP - Follow-up [facility] Medical Nutrition Therapy Reason(s) for Completion: [...] Gelatein Plus- clear thickened, gelatin high protein ([facility] and [facility] only) PO Meal Intake: Pt currently not taking any PO Appetite: [place] Estimated Nutrition Needs This Admission: No Feeding: Able to feed self Estimated Nutrition Needs (needs based on DBW of 70.4 kg) Kcals/day: 5192-1326 (25-30 kcal/kg) Protein g/day: 105-140 (1.5-2.0 g/kg) [...] 17* 20* 22* Recent Labs 10/20/25 0531 10/21/2535 10/22/25 05 NA 142 139 138 K 3.8 3.5 3.2* CL 111* 108 107 CO2 25 26 25 BUN 47* 39* 25 CREATININE 1.15 0.96 0.81 GLUCOSE 198* 126* 100 CALCIUM 6.8* 6.8* 6.8* MG 2.1 2.0 1.7 PHOS 4.8* 2.8 2.3 Recent Labs 10/20/25 0531 10/21/25 0635 10/22/25 05 AST 161* 64* 42* ALT 532* 389* [...] Surgeon: Vani Winkler MD; Location: [facility]; Service: Transplant; Laterality: N/A; Scheduled Meds: [...] Dietitian - Solid Organ Transplant Contact via [employer] Chat [1] Allergies Allergen Reactions Lisinopril Other (See Comments) * Citlaly Zimmerman RN - 10/19/2025 1:50 PM EST HEALTH Care Management/Social Work Assessment Patient Information Patient Name: David Serrano Hospital Day: 2 Inpatient/Observation: Inpatient Admit Date: 10/17/2025 Admission Diagnosis: TRANSPLANT LIVER Attending provider: Vani Winkler MD PCP: PROVIDER NOT IN SYSTEM Home Pharmacy: [facility] - [place], [place] - [address] [facility] [address] [place] [address] [facility] [address] [facility] [address] [facility] [address] [facility] [address] [facility] [facility] acute [facility] [address] Pertinent Medications Anticoagulation therapy: Yes Anticoagulant (Name [...] of children and their names: Familia Serrano ([phone]) and Gloria Banegas ([phone]) Relative Search Completed: Yes Demographics Correct:: Yes [...] No Status & Connection to [facility] Services [place] Status & Connection to [facility] Services Are you a ?: No Support Systems Emergency contact: Extended Emergency Contact Information Primary Emergency Contact: Kiesha,Stacy Address: [address] [place] [address] Mobile Relation: Spouse Support Systems Legal Status: HCPOA Name of Guardian/POA/ Payee and Phone Number: Stacy Willisworth ([phone]) Primary Caregiver: Self, Spouse Caregiver name/phone number: Stacy Serrano ([phone]) Times of available support: Total 24/7 hands on (add comment) (Daughter and Friend willing to assist in pt post op care.) Marital Status: Number of children and their names: Familia Willisworth ([phone]) and Gloria Banegas ([phone]) Relative Search Completed: Yes Demographics Correct:: Yes [...] living with spouse in a home in [place], [place]. Pt reports ~2 steps into residence and 0 inside residence. Pt reports having 2 children- Lan Serrano ([phone]) and Gloria Makenzie ([phone]). Pt denies any concerns for safety or [...] Stacy Serrano. LNOK and HCPOA: Stacy Roach ([phone]) PCP: Myles Mosley Transportation: family Advance Directives (For Healthcare) Advance Directive: Patient has advance directive, copy in chart Type of Healthcare Directive: Durable power of trademark attorney for health care Healthcare Agent Appointed: [...] 550 mg BID 24 hour events: - [place] removed, introducer remains - Extubated to IN, now room air - NG pulled on [...] Surgeon: Vani Winkler MD; Location: [facility]; Service: Transplant; Laterality: N/A; Home Medications [...] glucose >349 mg/dL = 12 units lancets Mis Use to test blood sugar [...] breakfast. pen needle, diabetic 32 gauge x 5/32 [...] ratio: No PaO2 result within 12 hours. Meridian body weight: Meridian body weight: 63.8 kg (140 lb 10.5 [...] 3.4* 3.1* CL 114* 112* 113* CO2 25 24 24 CALCIUM 7.8* 7.5* 7.4* MG [...] in sodium chloride 0.9% 100 mL IVPB (Peaq5Vur) 1 g Every 6 hours 10/17/2025 10/19/2025 Admin Instructions: Dosage may need to be adjusted for renal dysfunction. Full dose is 1g IV q6h Use Wytb1Wuw Adapter - Mix Thoroughly Before Administration Notes to Pharmacy: On eating disorder psychologist estimated creatinine clearance is 101.9 mL/min (based [...] Best Verbal Response: 5,Best Motor Response: 6 [place] Coma Scale Score: 15 No data found. [...] removing a-line when stable on insulin regimen Dc iniguez PT/OT: pending. PT Recs: OT Recs: BURIAL AGENT Recs: Dispo: Remain in SICU EVELYN GALINDO [...] Pre-op MELD 20. Intra-operative course notable for asnckudbzr7V ascites. EBL 11L, received 03/19//, 2.4L cell-saver, [...] failure requiring intubation P:F: - passed SBT: 7.34/48/84/ CXR reviewed - ETT well-positioned, no significant [...] SATURATION ARTERIAL 97 100 PF ratio: 210 Meridian body weight: Meridian body weight: 63.8 kg (140 lb 10.5 [...] Intake/Output Summary (Last 24 hours) at 10/18/2025 07 Last data filed at 10/18/2025 0700 Gross per 24 hour Intake 50818.44 ml Output 78315 ml Net 472.44 ml IVF: acetylcysteine (ACETADOTE) 200 mg/mL (20 %) 10 g in sodium chloride 0.45% (/2 NS) 1,000 mL infusion, Last Rate: 10 [...] HEMATOLOGIC Labs: Lab 10/18/25 0502 10/17/25 2250 10/17/25212410/17/25202110/17/25192510/17/25 1839 10/17/25 1700 10/17/25 1656 10/17/25 1559 [...] 2.1* -- -- -- Lab 10/17/25 2250 10/17/25203010/17/25 1839 10/17/25 1656 10/17/25 1455 FIBRINOGEN LEVEL [...] in perioperative period (currently at 9 from ) - Will assess requirements before transitioning to [...] in sodium chloride 0.9% 100 mL IVPB (Tgzk3Mmi) 1 g Every 6 hours 10/17/2025 10/19/2025 Admin Instructions: Dosage may need to be adjusted for renal dysfunction. Full dose is 1g IV q6h Use Tnaq6Yul Adapter - Mix Thoroughly Before Administration Notes to Pharmacy: On eating disorder psychologist estimated creatinine clearance is 101.9 mL/min (based on SCr of 0.81 mg/dL). Route: Intravenous Linked Group 1: Placed in And Linked Group AMPicillin 2 g in sodium chloride 0.9% 100 mL IVPB (Enre3Ifr) (Completed) 2 g Once 10/17/2025 10/17/2025 Admin Instructions: Begin infusion 20-60 minutes prior to incision Use Iyfp9Kpj Adapter - Mix Thoroughly Before Administration Notes to Pharmacy: On eating disorder psychologist estimated creatinine clearance is 98.3 mL/min (based [...] 1 PT/OT: pending. PT Recs: OT Recs: BURIAL AGENT Recs: Dispo: Remain in SICU. DUARTE EL [...] Pre-op MELD 20. Intra-operative course notable for nuqrfujokq0M ascites. EBL 11L, received ///, 2.4L cell-saver, [...] 10/18/2025 0758 Gross per 24 hour Intake 22012.34 ml Output 49559 ml Net 484.34 ml SKIN/MUSCULOSKELETAL: No acute [...] CONSULT TO NUTRITION SERVICES TXP - Initial [facility] Medical Nutrition Therapy Reason(s) for Completion: [...] based on DBW of 70.4 kg) Kcals/day: 9397-5407 (25-30 kcal/kg) Protein g/day: 105-140 (1.5-2.0 g/kg) [...] Dietitian - Solid Organ Transplant Contact via [employer] Chat [1] Allergies Allergen Reactions Lisinopril Other [...] Observed PEEP/CPAP Delta Pressure Support (cm H2O) 10/17/25 2238 VC-SIMV/PRVC 16 400 mL 16 cm H2O [...] O2 SATURATION ARTERIAL 100 PF ratio: 270 Meridian body weight: [place]idian body weight: 63.8 kg (140 lb 10.5 [...] 10/17/2025 2300 Gross per 24 hour Intake 82307.34 ml Output 13749 ml Net 840.34 ml IVF: fentanyl (SUBLIMAZE) [...] A/P: No active issues. HEMATOLOGIC Labs: Lab 10/17/25224910/17/25212410/17/25202110/17/25192510/17/25183810/17/25 1700 10/17/25 16510/17/25 1559 10/17/25 1455 10/17/25 1454 10/17/25 [...] TEG as needed ENDOCRINE FSBS range: Lab 10/17/25224610/17/25212410/17/25202110/17/25 1926 10/17/25 1823 10/17/25 1742 10/17/25 1700 [...] in sodium chloride 0.9% 100 mL IVPB (Herz3Til) 1 g Every 6 hours 10/17/2025 10/19/2025 Admin Instructions: Dosage may need to be adjusted for renal dysfunction. Full dose is 1g IV q6h Use Wxya6Ixo Adapter - Mix Thoroughly Before Administration Notes to Pharmacy: On eating disorder psychologist estimated creatinine clearance is 101.9 mL/min (based on SCr of 0.81 mg/dL). Route: Intravenous Linked Group 1: Placed in And Linked Group AMPicillin 2 g in sodium chloride 0.9% 100 mL IVPB (Qyht2Cpf) (Completed) 2 g Once 10/17/2025 10/17/2025 Admin Instructions: Begin infusion 20-60 minutes prior to incision Use Jqnk1Dll Adapter - Mix Thoroughly Before Administration Notes to Pharmacy: On eating disorder psychologist estimated creatinine clearance is 98.3 mL/min (based [...] Best Verbal Response: 5,Best Motor Response: 6 [place] Coma Scale Score: 15 No data found. [...] 1 PT/OT: pending. PT Recs: OT Recs: BURIAL AGENT Recs: Dispo: Remain in SICU. DUARTE EL [...] Patient will remain free of falls Goal: Timpson Fall Precautions Outcome: Adequate for Discharge Problem: [...] intervention. Outcome: Adequate for Discharge Problem: Non-violent, mob-uooe-sutcdebyjnw restraints Description: Less restrictive alternative interventions will [...] of medical procedures, or protection of medical clinic manager access. Outcome: Adequate for Discharge Problem: Knowledge [...] 1960 Age: 65 y.o. Gender: male SSN: [id number] Address: [address] [place] [address] Phone number: [phone] Patient emergency contact: Extended Emergency Contact Information Primary Emergency Contact: Stacy Serrano Address: [address] [place] [address] Mobile Relation: Spouse Date of admission: 10/17/2025 Date of discharge: 10/22/2025 Attending provider: Lane Troy MD Primary care physician: PROVIDER NOT IN SYSTEM Code status: Full Code Allergies: Allergies[1] Insurance Information Insurance Information Guide Financial/[employer] Phone: -- Subscriber: David Serrano Subscriber#: [id number] Group#: [id number] Precert#: -- Authorization#: [id number] Effective Date: -- TRANSPLANT GLOBAL/TRANSPLANT GLOBAL Phone: -- Subscriber: David Serrano Subscriber#: [id number] Group#: -- Precert#: -- Authorization#: [id number] Effective Date: -- Diagnoses Present on Admission [...] Gelatein Plus- clear thickened, gelatin high protein ([facility] and [facility] only) Regular Diet Services Required Halfway: vital signs, med management, lab draws Physical [...] Quantity: 200 each Refills: 2 blood-glucose meter [facility] Use to test [...] scale: Blood glucose 150-199 mg/dL =1units, Blood muxiunw897-375 mg/dL =2 units, Blood glucose 250-299 mg/dL =3 units, Blood glucose 300-349 mg/dL =4 units,Blood glucose greater than 349 mg/dL = 5 units Quantity: 15 mL Refills: 2 lancets [facility] Use to test [...] Your Medications These medications were sent to [facility] [address] [place], [place] [id number] Hours: Wednesday - Wednesday: 8:00AM - 6:00PM [...] tablet pen needle, diabetic 32 gauge x 32 Ndle phosphorus 250 mg tablet polyethylene glycol 17 gram/dose powder potassium chloride 10 MEQ CR tablet predniSONE 5 MG tablet senna-docusate 8.6-50 mg per tablet sulfamethoxazole-trimethoprim 400-80 mg per tablet tacrolimus 1 MG capsule Discharge Specific Orders Discharge specific orders: LAB DRAWS: Please collect CBC w/diff, renal function panel, hepatic function panel, and tacrolimus level (prior to am tacro dose) every /Th starting 10/29. Fax results to liver transplant clinic at [phone]. NURSE VISIT: Please check vitals and assess/monitor surgical incision every Mon/Th. Isolation Patient Isolation Status None to display [...] effort and are for medical reasons or nondenominational services or infrequently or short duration when for other reasons) due to deconditioning it would be a taxing effort to receive outpatient services. My signature below is to certify that this patient is under my care and that I, or nurse practitioner, or a physician preschool assistant teacher working with me, had a edbt-xx-mbfl encounter with this is patient on: 10/22/2025 Follow-up Appointments and Post Hospital Discharge Physician Name Future Appointments Date Time Provider Department Center 10/30/2025 9:00 AM [facility]GERY, [facility] [address] [facility] [address] [place] [address] Discharging Physician Signature and Credentials Discharging Physician: Electronically signed by LAISHA HERNANDEZ 10/22/2025, 1:32 PM Physician to follow up Information PCP: PROVIDER NOT IN SYSTEM PCP address: None PCP phone number: None PCP fax number: None Follow-up: [facility] and their phone / fax is: [phone] / [phone] Foreign Language Interpreter and Credentials Provider/Company Name and Contact Number: Community Services at Discharge Community Services at Home post discharge: Home Health [facility] Name/Phone # post discharge: [facility] [employer] ([phone]) Home Health Services Types at Discharge: PT/OT/BURIAL AGENT, Halfway (fci for lab draws.) Foreign Language Interpreter Name and Telephone Number: February Bishop RN/CM [phone] [1] Allergies Allergen Reactions Lisinopril Other (See [...] to patients area and insurance. Kamlesh Sanchez Advisor [employer]ocate [employer] Founder Pipe Organ Installer Care Management Services [phone] * Plan of Care - Evelyn Galindo [...] Bush RN - 10/18/2025 3:55 PM EST [facility] Case Management/Social Work Department Progress Note [...] PCP: PROVIDER NOT IN SYSTEM Home Pharmacy: [facility] - [place] - [address] [facility] [address] [place] [address] [facility] [address] [facility] [address] [facility] [address] [facility] [address] [facility] [address] [facility] [id number] Medical Insurance Coverage: Payor: NANCY / Plan: [...] discharge planning needs. TAMIA BUSH RN Cell [phone] * Plan of Care - Angela Tamez [...] Patient will remain free of falls Goal: Timpson Fall Precautions Outcome: Progressing Problem: Daily Care [...] pain management intervention. Outcome: Progressing Problem: Non-violent, zeo-xepv-gnbufiedlzp restraints Description: Less restrictive alternative interventions will [...] of medical procedures, or protection of medical clinic manager access. Outcome: Progressing Problem: Knowledge Deficit Goal: [...] Patient will remain free of falls Goal: Timpson Fall Precautions Outcome: Progressing Problem: Daily Care [...] pain management intervention. Outcome: Progressing Problem: Non-violent, jjw-lrli-jrawualvljt restraints Description: Less restrictive alternative interventions will [...] of medical procedures, or protection of medical clinic manager access. Outcome: Progressing Patient in bilateral soft [...] Priority Date/Time Associated Diagnosis Comments US DUPLEX [id number] COMPLETE STAT 10/22/2025 10:24 AM EST US [...] Routine 10/18/2025 10:29 AM EST US DUPLEX [id number] COMPLETE STAT 10/18/2025 9:35 AM EST US [...] 2:5 0 PM EST TRANSPLANT LIVER 10/17/2025 1:3 8 PM EST same TEG-STANDARD GLOBAL HEMOSTASIS (RAPID [...] in this encounter Results * US Duplex Xaq-Hag-Oofgunk Comp (10/22/2025 10:24 AM EST) Anatomical Region [...] EXAM: US ABDOMEN COMPLETE EXAM: US DUPLEX [id number] COMPLETE INDICATION: Post-op liver transplant DATE: 10/22/2025 [...] EXAM: US ABDOMEN COMPLETE EXAM: US DUPLEX [id number] COMPLETE INDICATION: Post-op liver transplant DATE: 10/22/2025 [...] IM US ORDERABLES Final Resul t * US [...] EXAM: US ABDOMEN COMPLETE EXAM: US DUPLEX [id number] COMPLETE INDICATION: Post-op liver transplant DATE: 10/22/2025 [...] EXAM: US ABDOMEN COMPLETE EXAM: US DUPLEX [id number] COMPLETE INDICATION: Post-op liver transplant DATE: 10/22/2025 [...] 10/22/2025 12:02 PM EST Leticia Lomeli MD [facility] [place] ORDERABLES Final Resul t * POC Glucose Monitoring Device (10/22/2025 10:23 AM EST) POC Glucose Monitoring Device 96 70 - 100 mg/dL 10/22/2025 10:24 AM EST [facility] Blood 10/22/2025 10:2 3 AM EST 10/22/2025 10:23 AM EST us Vani Winkler MD POINT OF CARE TEST ORDERABLE S Final Result [facility] [address] [place] [address], [facility] * Tacrolimus level (10/22/2025 9:48 AM EST) Tacrolimus (LC-MS) 4.0 3.0 - 15.0 ng/mL 10/22/2025 12:57 PM EST [facility] Comment:Performed via liquid chromatography tandem mass spectrometry. Detection limit: 1 ng/mL. Individual target concentrations may vary due to target organ and time after transplant. This test has been developed and its performance characteristics determined by [facility] which is certified under the [...] ORDERABLES Final Re sult Performing Organization Address [facility]/ZIP Co de Phone Number [address] * Phosphorus (10/22/2025 5:28 AM EST) Phosphorus 2.3 2.1 - 4.7 mg/dL 10/22/2025 6:20 AM EST [facility] Plasma 10/22/2025 5:28 AM EST 10/22/2025 5:42 AM EST Aspen Parr MD LAB BLOOD ORDERABLES Final Resul t [facility] [address] [place] [address]. [address] * Magnesium (10/22/2025 5:28 AM EST) Magnesium 1.7 1.5 - 2.5 mg/dL 10/22/2025 6:20 AM EST [facility] Plasma 10/22/2025 5:28 AM EST 10/22/2025 5:42 AM EST Aspen Parr MD LAB BLOOD ORDERABLES Final Resul t [facility] [address] [facility]. [address] * (ABNORMAL) CBC (10/22/2025 5:28 AM EST) WBC 6.6 3.8 - 10.8 10E3/uL 10/22/2025 5:48 AM EST [facility] RBC 2.84(L) 4.20 - 5.80 10E6/uL 10/22/2025 5:48 AM EST [facility] Hemoglobin 9.3(L) 13.2 - 17.1 g/dL 10/22/2025 5:48 AM EST [facility] Hematocrit 26.4(L) 38.5 - 50.0 % 10/22/2025 5:48 AM EST [facility] MCV 92.8 80.0 - 100.0 fL 10/22/2025 5:48 AM EST [facility] MCH 32.8 27.0 - 33.0 pg 10/22/2025 5:48 AM EST [facility] MCHC 35.4 32.0 - 36.0 g/dL 10/22/2025 5:48 AM EST [facility] RDW 16.0(H) 11.0 - 15.0 % 10/22/2025 5:48 AM EST [facility] Platelets 22(L) 140 - 400 10E3/uL 10/22/2025 5:48 AM EST [facility] Comment: CNV Specimen checked for clots. None detected. MPV 9.1 7.5 - 11.5 fL 10/22/2025 5:48 AM EST [facility] Whole Blood 10/22/2025 5:28 AM EST 10/22/2025 5:42 AM EST Aspen Parr MD LAB BLOOD ORDERABLES Final Resul t [facility] [address] [facility]. [address] * (ABNORMAL) Hepatic Function Panel (10/22/2025 5:28 AM EST) Total Bilirubin 1.0 0.0 - 1.5 mg/dL 10/22/2025 6:20 AM EST [facility] Bilirubin, Direct 0.28 0.00 - 0.40 mg/dL 10/22/2025 6:20 AM EST [facility] AST 42(H) 13 - 39 U/L 10/22/2025 6:20 AM EST [facility] ALT 270(H) 7 - 52 U/L 10/22/2025 6:20 AM EST [facility] Alkaline Phosphatase 84 36 - 125 U/L 10/22/2025 6:20 AM EST [facility] Total Protein 4.3(L) 6.4 - 8.9 g/dL 10/22/2025 6:20 AM EST [facility] Albumin 2.1(L) 3.5 - 5.7 g/dL 10/22/2025 6:20 AM EST [facility] Bilirubin, Indirect 0.72 0.00 - 1.10 mg/dL 10/22/2025 6:20 AM EST [facility] Plasma 10/22/2025 5:28 AM EST 10/22/2025 5:42 AM EST us sApen Parr MD LAB BLOOD ORDERABLES Final Resul t [facility] [address] [place] [address], [facility] * (ABNORMAL) Basic metabolic panel (10/22/2025 5:28 AM EST) Sodium 138 133 - 146 mmol/L 10/22/2025 6:20 AM EST [facility] Potassium 3.2(L) 3.5 - 5.3 mmol/L 10/22/2025 6:20 AM EST [facility] Chloride 107 98 - 110 mmol/L 10/22/2025 6:20 AM EST [facility] CO2 25 21 - 33 mmol/L 10/22/2025 6:20 AM EST [facility] Comment:High lactate dehydro genase concentrations in patient samples may cause falsely increased bicarbonate results. If markedly elevated LDH is observed or suspected, please assess results in conjunction with patient`s clinical presentation. In cases of discrepant results, consider evaluating CO2 in with a blood gas order. Anion Gap 6 3 - 16 mmol/L 10/22/2025 6:20 AM EST [facility] BUN 25 7 - 25 mg/dL 10/22/2025 6:20 AM EST [facility] Creatinine 0.81 0.60 - 1.30 mg/dL 10/22/2025 6:20 AM EST [facility] Glucose 100 70 - 100 mg/dL 10/22/2025 6:20 AM EST [facility] Calcium 6.8(L) 8.6 - 10.3 mg/dL 10/22/2025 6:20 AM EST [facility] Osmolality, Calculated 290 278 - 305 mOsm/kg 10/22/2025 6:20 AM EST [facility] EGFR >90 10/22/2025 6:20 AM EST [facility] Comment: As of 2022, [...] MD LAB BLOOD ORDERABLES Final Resul t [facility] [address] [place] [address], [facility] * (ABNORMAL) POC Glucose Monitoring Device (10/21/2025 4:31 PM EST) POC Glucose Monitoring Device 230(H) 70 - 100 mg/dL 10/21/2025 4:32 PM EST [facility] Blood 10/21/2025 4:31 PM EST 10/21/2025 4:32 PM EST Vani Winkler MD POINT OF CARE TEST ORDERABLE S Final Result Performing Organization Address City/[facility] Co de Phone Number [facility] [address] [facility]. [address] * (ABNORMAL) POC Glucose Monitoring Device (10/21/2025 12:27 PM EST) POC Glucose Monitoring Device 181(H) 70 - 100 mg/dL 10/21/2025 12:27 PM EST [facility] Blood 10/21/2025 12:2 7 PM EST 10/21/2025 12:27 PM EST Vani Winkler MD POINT OF CARE TEST ORDERABLE S Final Result Performing Organization Address [facility] de Phone Number [facility] [address] [facility]. [address] * Tacrolimus level (10/21/2025 8:30 AM EST) Tacrolimus (LC-MS) 6.9 3.0 - 15.0 ng/mL 10/21/2025 3:07 PM EST [facility] Comment:Performed via liquid chromatography tandem mass spectrometry. Detection limit: 1 ng/mL. Individual target concentrations may vary due to target organ and time after transplant. This test has been developed and its performance characteristics determined by [facility] which is certified under the [...] 8:30 AM EST 10/21/2025 8:35 AM EST us Leticia Lomeli MD LAB BLOOD ORDERABLES Final Re sult [facility] [address] * (ABNORMAL) POC Glucose Monitoring Device (10/21/2025 8:18 AM EST) POC Glucose Monitoring Device 112(H) 70 - 100 mg/dL 10/21/2025 8:28 AM EST [facility] Blood 10/21/2025 8:18 AM EST 10/21/2025 8:28 AM EST us Vani Winkler MD POINT OF CARE TEST ORDERABLE S Final Result Performing Organization Address [facility] Co de Phone Number [facility] [address] * (ABNORMAL) Hepatic Function Panel (10/21/2025 6:35 AM EST) Total Bilirubin 0.9 0.0 - 1.5 mg/dL 10/21/2025 7:45 AM EST [facility] Bilirubin, Direct 0.41(H) 0.00 - 0.40 mg/dL 10/21/2025 7:45 AM EST [facility] AST 64(H) 13 - 39 U/L 10/21/2025 7:45 AM EST [facility] ALT 389(H) 7 - 52 U/L 10/21/2025 7:45 AM EST [facility] Alkaline Phosphatase 83 36 - 125 U/L 10/21/2025 7:45 AM EST [facility] Total Protein 4.3(L) 6.4 - 8.9 g/dL 10/21/2025 7:45 AM EST [facility] Albumin 2.2(L) 3.5 - 5.7 g/dL 10/21/2025 7:45 AM EST [facility] Bilirubin, Indirect 0.49 0.00 - 1.10 mg/dL 10/21/2025 7:45 AM EST [facility] Plasma 10/21/2025 6:35 AM EST 10/21/2025 6:58 AM EST Aspen Parr MD LAB BLOOD ORDERABLES Final Resul t Performing Organization Address City/[facility]/ZIP Co de Phone Number [facility] [address] [facility]. [address] * Magnesium (10/21/2025 6:35 AM EST) Magnesium 2.0 1.5 - 2.5 mg/dL 10/21/2025 7:45 AM EST [facility] Plasma 10/21/2025 6:35 AM EST 10/21/2025 6:58 AM EST Aspen Parr MD LAB BLOOD ORDERABLES Final Resul t Performing Organization Address [facility] Co de Phone Number [facility] [address] [facility] * (ABNORMAL) Renal Function Panel w/EGFR (10/21/2025 6:35 AM EST) Sodium 139 133 - 146 mmol/L 10/21/2025 7:45 AM EST [facility] Potassium 3.5 3.5 - 5.3 mmol/L 10/21/2025 7:45 AM EST [facility] Chloride 108 98 - 110 mmol/L 10/21/2025 7:45 AM [facility] CO2 26 21 - 33 mmol/L 10/21/2025 7:45 AM EST [facility] Comment:High lactate dehydro genase concentrations in patient samples may cause falsely increased bicarbonate results. If markedly elevated LDH is observed or suspected, please assess results in conjunction with patient`s clinical presentation. In cases of discrepant results, consider evaluating CO2 in with a blood gas order. Anion Gap 5 3 - 16 mmol/L 10/21/2025 7:45 AM EST [facility] BUN 39(H) 7 - 25 mg/dL 10/21/2025 7:45 AM EST [facility] Creatinine 0.96 0.60 - 1.30 mg/dL 10/21/2025 7:45 AM EST [facility] Glucose 126(H) 70 - 100 mg/dL 10/21/2025 7:45 AM EST [facility] Calcium 6.8(L) 8.6 - 10.3 mg/dL 10/21/2025 7:45 AM EST [facility] Phosphorus 2.8 2.1 - 4.7 mg/dL 10/21/2025 7:45 AM EST [facility] Albumin 2.2(L) 3.5 - 5.7 g/dL 10/21/2025 7:45 AM EST [facility] Osmolality, Calculated 299 278 - 305 mOsm/kg 10/21/2025 7:45 AM EST [facility] EGFR 88 10/21/2025 7:45 AM EST [facility] Comment:As of 2022, the [...] MD LAB BLOOD ORDERABLES Final Resul t [facility] [address] [place] [address], [facility] * (ABNORMAL) CBC (10/21/2025 6:35 AM EST) WBC 8.4 3.8 - 10.8 10E3/uL 10/21/2025 7:55 AM EST [facility] RBC 2.68(L) 4.20 - 5.80 10E6/uL 10/21/2025 7:55 AM EST [facility] Hemoglobin 8.9(L) 13.2 - 17.1 g/dL 10/21/2025 7:55 AM EST [facility] Hematocrit 24.8(L) 38.5 - 50.0 % 10/21/2025 7:55 AM EST [facility] MCV 92.6 80.0 - 100.0 fL 10/21/2025 7:55 AM EST [facility] MCH 33.3(H) 27.0 - 33.0 pg 10/21/2025 7:55 AM EST [facility] MCHC 36.0 32.0 - 36.0 g/dL 10/21/2025 7:55 AM EST [facility] RDW 16.9(H) 11.0 - 15.0 % 10/21/2025 7:55 AM EST [facility] Platelets 20(L) 140 - 400 10E3/uL 10/21/2025 7:55 AM EST [facility] Comment: CNV Specimen checked for clots. None detected. MPV 8.5 7.5 - 11.5 fL 10/21/2025 7:55 AM EST [facility] Whole Blood 10/21/2025 6:35 AM EST 10/21/2025 6:58 AM EST Aspen Parr MD LAB BLOOD ORDERABLES Final Resul t [facility] [address] * (ABNORMAL) POC Glucose Monitoring Device (10/20/2025 5:17 PM EST) POC Glucose Monitoring Device 195(H) 70 - 100 mg/dL 10/20/2025 5:18 PM EST [facility] Blood 10/20/2025 5:17 PM EST 10/20/2025 5:18 PM EST Vani Winkler MD POINT OF CARE TEST ORDERABLE S Final Result [facility] [address] [facility] * (ABNORMAL) POC Glucose Monitoring Device (10/20/2025 2:24 PM EST) POC Glucose Monitoring Device 205(H) 70 - 100 mg/dL 10/20/2025 2:24 PM EST [facility] Blood 10/20/2025 2:24 PM EST 10/20/2025 2:24 PM EST Vani Winkler MD POINT OF CARE TEST ORDERABLE S Final Result Performing Organization Address City/[facility]/ZIP Co de Phone Number [facility] [address] [place] [address]. [address] * Tacrolimus level (10/20/2025 10:31 AM EST) Pathologist [facility] Tacrolimus (LC-MS) 7.9 3.0 - 15.0 ng/mL 10/20/2025 2:25 PM EST [facility] Comment:Performed via liquid chromatography tandem mass spectrometry. Detection limit: 1 ng/mL. Individual target concentrations may vary due to target organ and time after transplant. This test has been developed and its performance characteristics determined by [facility] which is certified under the [...] ORDERABLES Final Re sult Performing Organization Address City/[facility]/ZIP Co de Phone Number [facility] [address] [place] [address]. [address] * (ABNORMAL) POC Glucose Monitoring Device (10/20/2025 9:24 AM EST) POC Glucose Monitoring Device 227(H) 70 - 100 mg/dL 10/20/2025 9:25 AM EST [facility] Blood 10/20/2025 9:24 AM EST 10/20/2025 9:25 AM EST Vani Winkler MD POINT OF CARE TEST ORDERABLE S Final Result [facility] [address] * Magnesium (10/20/2025 5:31 AM EST) Magnesium 2.1 1.5 - 2.5 mg/dL 10/20/2025 7:35 AM EST [facility] Plasma 10/20/2025 5:31 AM EST 10/20/2025 5:42 AM EST Aspen Parr MD LAB BLOOD ORDERABLES Final Resul t Performing Organization Address City/[facility] Co de Phone Number [facility] [address] * (ABNORMAL) Hepatic Function Panel (10/20/2025 5:31 AM EST) Total Bilirubin 0.9 0.0 - 1.5 mg/dL 10/20/2025 7:35 AM EST [facility] Bilirubin, Direct 0.43(H) 0.00 - 0.40 mg/dL 10/20/2025 7:35 AM EST [facility] AST 161(H) 13 - 39 U/L 10/20/2025 7:35 AM EST [facility] ALT 532(H) 7 - 52 U/L 10/20/2025 7:35 AM EST [facility] Alkaline Phosphatase 67 36 - 125 U/L 10/20/2025 7:35 AM EST [facility] Total Protein 4.2(L) 6.4 - 8.9 g/dL 10/20/2025 7:35 AM EST [facility] Albumin 2.2(L) 3.5 - 5.7 g/dL 10/20/2025 7:35 AM EST [facility] Bilirubin, Indirect 0.47 0.00 - 1.10 mg/dL 10/20/2025 7:35 AM EST [facility] Plasma 10/20/2025 5:31 AM EST 10/20/2025 5:42 AM EST us Aspen Parr MD LAB BLOOD ORDERABLES Final Resul t [facility] [address] [place] [address], [facility] * (ABNORMAL) Renal Function Panel w/EGFR (10/20/2025 5:31 AM EST) Sodium 142 133 - 146 mmol/L 10/20/2025 7:23 AM EST [facility] Potassium 3.8 3.5 - 5.3 mmol/L 10/20/2025 7:23 AM [facility] Chloride 111(H) 98 - 110 mmol/L 10/20/2025 7:23 AM [facility] CO2 25 21 - 33 mmol/L 10/20/2025 7:23 AM [facility] Comment:High lactate dehydro genase concentrations in patient samples may cause falsely increased bicarbonate results. If markedly elevated LDH is observed or suspected, please assess results in conjunction with patient`s clinical presentation. In cases of discrepant results, consider evaluating CO2 in with a blood gas order. Anion Gap 6 3 - 16 mmol/L 10/20/2025 7:23 AM EST [facility] BUN 47(H) 7 - 25 mg/dL 10/20/2025 7:23 AM [facility] Creatinine 1.15 0.60 - 1.30 mg/dL 10/20/2025 7:23 AM [facility] Glucose 198(H) 70 - 100 mg/dL 10/20/2025 7:23 AM [facility] Calcium 6.8(L) 8.6 - 10.3 mg/dL 10/20/2025 7:23 AM [facility] Phosphorus 4.8(H) 2.1 - 4.7 mg/dL 10/20/2025 7:35 AM [facility] Albumin 2.2(L) 3.5 - 5.7 g/dL 10/20/2025 7:35 AM [facility] Osmolality, Calculated 312(H) 278 - 305 mOsm/kg 10/20/2025 7:23 AM EST [facility] EGFR 71 10/20/2025 7:23 AM EST [facility] Comment:As of 2022, the [...] MD LAB BLOOD ORDERABLES Final Resul t [facility] [address] [id number] * (ABNORMAL) CBC (10/20/2025 5:31 AM EST) WBC 6.1 3.8 - 10.8 10E3/uL 10/20/2025 6:18 AM EST [facility] RBC 2.64(L) 4.20 - 5.80 10E6/uL 10/20/2025 6:18 AM EST [facility] Hemoglobin 8.5(L) 13.2 - 17.1 g/dL 10/20/2025 6:18 AM EST [facility] Hematocrit 24.6(L) 38.5 - 50.0 % 10/20/2025 6:18 AM EST [facility] MCV 93.2 80.0 - 100.0 fL 10/20/2025 6:18 AM EST [facility] MCH 32.2 27.0 - 33.0 pg 10/20/2025 6:18 AM EST [facility] MCHC 34.6 32.0 - 36.0 g/dL 10/20/2025 6:18 AM EST [facility] RDW 17.4(H) 11.0 - 15.0 % 10/20/2025 6:18 AM EST [facility] Platelets 17(LL) 140 - 400 10E3/uL 10/20/2025 6:18 AM EST [facility] Comment: Results verified by repeat analysis. Critical Result PLT:17 Called to and read back by ALEKSANDR SMITH RN at: 10/20/2025 06:18:19 by:DEJON FISHMAN 8.4 7.5 - 11.5 fL 10/20/2025 6:18 AM EST [facility] Whole Blood 10/20/2025 5:31 AM EST 10/20/2025 5:42 AM EST us Aspen Parr MD LAB BLOOD ORDERABLES Final Resul t [facility] [address] [facility] * (ABNORMAL) POC Glucose Monitoring Device (10/20/2025 5:30 AM EST) POC Glucose Monitoring Device 208(H) 70 - 100 mg/dL 10/20/2025 5:31 AM EST [facility] Blood 10/20/2025 5:30 AM EST 10/20/2025 5:31 AM EST us Vani Winkler MD POINT OF CARE TEST ORDERABLE S Final Result [facility] [address] * (ABNORMAL) Protime-INR (10/19/2025 11:03 PM EST) Protime 18.2(H) 12.1 - 15.1 seconds 10/19/2025 11:27 PM EST [facility] INR 1.4(H) 0.9 - 1.1 10/19/2025 11:27 PM EST [facility] Comment: RECOMMENDED THERAPEUTIC RANGES USING INR : Stable oral anticoagulant therapy: 2.0 - 3.0 Mechanical prosthetic heart valve: 2.5 - 3.5 Recurrent acute myocardial infarction: 2.5 - 3.5 Plasma 10/19/2025 11:0 3 PM EST 10/19/2025 11:07 PM EST Aspen Parr MD LAB BLOOD ORDERABLES Final Resul t Performing Organization Address City/[facility]/ZIP Co de Phone Number [facility] [address] [facility] * Magnesium (10/19/2025 11:03 PM EST) Magnesium 2.1 1.5 - 2.5 mg/dL 10/19/2025 11:45 PM EST [facility] Plasma 10/19/2025 11:0 3 PM EST 10/19/2025 11:07 PM EST us Aspen Parr MD LAB BLOOD ORDERABLES Final Resul t Performing Organization Address [facility] Co de Phone Number [facility] [address] [facility] * (ABNORMAL) Hepatic Function Panel (10/19/2025 11:03 PM EST) Total Bilirubin 1.0 0.0 - 1.5 mg/dL 10/19/2025 11:45 PM EST [facility] Bilirubin, Direct 0.48(H) 0.00 - 0.40 mg/dL 10/19/2025 11:45 PM EST [facility] AST 223(H) 13 - 39 U/L 10/19/2025 11:45 PM EST [facility] ALT 569(H) 7 - 52 U/L 10/19/2025 11:45 PM EST [facility] Alkaline Phosphatase 68 36 - 125 U/L 10/19/2025 11:45 PM EST [facility] Total Protein 4.4(L) 6.4 - 8.9 g/dL 10/19/2025 11:45 PM EST [facility] Albumin 2.2(L) 3.5 - 5.7 g/dL 10/19/2025 11:45 PM [facility] Bilirubin, Indirect 0.52 0.00 - 1.10 mg/dL 10/19/2025 11:45 PM [facility] Plasma 10/19/2025 11:0 3 PM EST 10/19/2025 11:07 PM EST us Aspen Parr MD LAB BLOOD ORDERABLES Final Resul t [facility] [address] [place] [address], [facility] * (ABNORMAL) Renal Function Panel w/EGFR (10/19/2025 11:03 PM EST) Sodium 144 133 - 146 mmol/L 10/19/2025 11:33 PM [facility] Potassium 3.6 3.5 - 5.3 mmol/L 10/19/2025 11:33 PM [facility] Chloride 110 98 - 110 mmol/L 10/19/2025 11:33 PM [facility] CO2 25 21 - 33 mmol/L 10/19/2025 11:33 PM [facility] Comment:High lactate dehydro genase concentrations in patient samples may cause falsely increased bicarbonate results. If markedly elevated LDH is observed or suspected, please assess results in conjunction with patient`s clinical presentation. In cases of discrepant results, consider evaluating CO2 in with a blood gas order. Anion Gap 9 3 - 16 mmol/L 10/19/2025 11:33 PM EST [facility] BUN 46(H) 7 - 25 mg/dL 10/19/2025 11:33 PM [facility] Creatinine 1.24 0.60 - 1.30 mg/dL 10/19/2025 11:33 PM [facility] Glucose 184(H) 70 - 100 mg/dL 10/19/2025 11:33 PM [facility] Calcium 7.1(L) 8.6 - 10.3 mg/dL 10/19/2025 11:33 PM [facility] Phosphorus 4.9(H) 2.1 - 4.7 mg/dL 10/19/2025 11:45 PM [facility] Albumin 2.2(L) 3.5 - 5.7 g/dL 10/19/2025 11:45 PM EST [facility] Osmolality, Calculated 315(H) 278 - 305 mOsm/kg 10/19/2025 11:33 PM EST [facility] EGFR 65 10/19/2025 11:33 PM EST [facility] Comment:As of 2022, the [...] MD LAB BLOOD ORDERABLES Final Resul t [facility] [address] [place] [address], [facility] * (ABNORMAL) CBC (10/19/2025 11:03 PM EST) WBC 7.0 3.8 - 10.8 10E3/uL 10/19/2025 11:20 PM EST [facility] RBC 2.77(L) 4.20 - 5.80 10E6/uL 10/19/2025 11:20 PM EST [facility] Hemoglobin 8.9(L) 13.2 - 17.1 g/dL 10/19/2025 11:20 PM EST [facility] Hematocrit 25.8(L) 38.5 - 50.0 % 10/19/2025 11:20 PM EST [facility] MCV 93.2 80.0 - 100.0 fL 10/19/2025 11:20 PM EST [facility] MCH 32.2 27.0 - 33.0 pg 10/19/2025 11:20 PM EST [facility] [facility] MCHC 34.5 32.0 - 36.0 g/dL 10/19/2025 11:20 PM EST [facility] RDW 18.1(H) 11.0 - 15.0 % 10/19/2025 11:20 PM EST [facility] Platelets 20(L) 140 - 400 10E3/uL 10/19/2025 11:20 PM EST [facility] Comment:CNV MPV 8.0 7.5 - 11.5 fL 10/19/2025 11:20 PM EST [facility] Whole Blood 10/19/2025 11:0 3 PM EST 10/19/2025 11:07 PM EST us Aspen Parr MD LAB BLOOD ORDERABLES Final Resul t [facility] [address] * (ABNORMAL) POC Glucose Monitoring Device (10/19/2025 11:02 PM EST) POC Glucose Monitoring Device 185(H) 70 - 100 mg/dL 10/19/2025 11:03 PM EST [facility] Blood 10/19/2025 11:0 2 PM EST 10/19/2025 11:03 PM EST us Vani Winkler MD POINT OF CARE TEST ORDERABLE S Final Result [facility] [address] * (ABNORMAL) POC Glucose Monitoring Device (10/19/2025 5:24 PM EST) POC Glucose Monitoring Device 166(H) 70 - 100 mg/dL 10/19/2025 5:35 PM EST [facility] Blood 10/19/2025 5:24 PM EST 10/19/2025 5:35 PM EST us Vani Winkler MD POINT OF CARE TEST ORDERABLE S Final Result Performing Organization Address [facility] de Phone Number [facility] [address] [facility] * (ABNORMAL) POC Glucose Monitoring Device (10/19/2025 12:26 PM EST) POC Glucose Monitoring Device 156(H) 70 - 100 mg/dL 10/19/2025 12:27 PM EST [facility] Blood 10/19/2025 12:2 6 PM EST 10/19/2025 12:27 PM EST us Vani Winkler MD POINT OF CARE TEST ORDERABLE S Final Result Performing Organization Address [facility] de Phone Number [facility] [address] [facility] * (ABNORMAL) POC Glucose Monitoring Device (10/19/2025 9:51 AM EST) POC Glucose Monitoring Device 110(H) 70 - 100 mg/dL 10/19/2025 9:52 AM EST [facility] Blood 10/19/2025 9:51 AM EST 10/19/2025 9:52 AM EST Vani Winkler MD POINT OF CARE TEST ORDERABLE S Final Result Performing Organization Address [facility] de Phone Number [facility] [address] [facility] * (ABNORMAL) Tacrolimus level (10/19/2025 8:29 AM EST) Tacrolimus (LC-MS) 2.1(L) 3.0 - 15.0 ng/mL 10/19/2025 3:06 PM EST [facility] Comment:Performed via liquid chromatography tandem mass spectrometry. Detection limit: 1 ng/mL. Individual target concentrations may vary due to target organ and time after transplant. This test has been developed and its performance characteristics determined by [facility] which is certified under the [...] ORDERABLES Final Re sult Performing Organization Address [facility] Co de Phone Number [facility] [address] [facility] * (ABNORMAL) Protime-INR (10/19/2025 8:29 AM EST) Protime 19.1(H) 12.1 - 15.1 seconds 10/19/2025 9:09 AM EST [facility] INR 1.5(H) 0.9 - 1.1 10/19/2025 9:09 AM EST [facility] Comment: RECOMMENDED THERAPEUTIC RANGES USING INR : Stable oral anticoagulant therapy: 2.0 - 3.0 Mechanical prosthetic heart valve: 2.5 - 3.5 Recurrent acute myocardial infarction: 2.5 - 3.5 Plasma 10/19/2025 8:29 AM EST 10/19/2025 8:33 AM EST Aspen Parr MD LAB BLOOD ORDERABLES Final Resul t Performing Organization Address City/[facility]/ZIP Co de Phone Number [facility] [address] [facility] * Magnesium (10/19/2025 8:29 AM EST) Magnesium 2.0 1.5 - 2.5 mg/dL 10/19/2025 9:28 AM EST [facility] Plasma 10/19/2025 8:29 AM EST 10/19/2025 8:33 AM EST Aspen Parr MD LAB BLOOD ORDERABLES Final Resul t Performing Organization Address City/[facility] Co de Phone Number [facility] [address] [place] [address] * (ABNORMAL) Hepatic Function Panel (10/19/2025 8:29 AM EST) Total Bilirubin 1.0 0.0 - 1.5 mg/dL 10/19/2025 9:28 AM EST [facility] Bilirubin, Direct 0.44(H) 0.00 - 0.40 mg/dL 10/19/2025 9:28 AM EST [facility] AST 450(H) 13 - 39 U/L 10/19/2025 9:28 AM EST [facility] ALT 725(H) 7 - 52 U/L 10/19/2025 9:28 AM EST [facility] Alkaline Phosphatase 65 36 - 125 U/L 10/19/2025 9:28 AM EST [facility] Total Protein 4.4(L) 6.4 - 8.9 g/dL 10/19/2025 9:28 AM EST [facility] Albumin 2.2(L) 3.5 - 5.7 g/dL 10/19/2025 9:28 AM EST [facility] Bilirubin, Indirect 0.56 0.00 - 1.10 mg/dL 10/19/2025 9:28 AM EST [facility] Plasma 10/19/2025 8:29 AM EST 10/19/2025 8:33 AM EST Aspen Parr MD LAB BLOOD ORDERABLES Final Resul t [facility] [address] [place] [address] * (ABNORMAL) Renal Function Panel w/EGFR (10/19/2025 8:29 AM EST) Sodium 145 133 - 146 mmol/L 10/19/2025 9:09 AM EST [facility] Potassium 3.6 3.5 - 5.3 mmol/L 10/19/2025 9:09 AM EST [facility] Chloride 113(H) 98 - 110 mmol/L 10/19/2025 9:09 AM EST [facility] CO2 25 21 - 33 mmol/L 10/19/2025 9:09 AM [facility] Comment:High lactate dehydro genase concentrations in patient samples may cause falsely increased bicarbonate results. If markedly elevated LDH is observed or suspected, please assess results in conjunction with patient`s clinical presentation. In cases of discrepant results, consider evaluating CO2 in with a blood gas order. Anion Gap 7 3 - 16 mmol/L 10/19/2025 9:09 AM [facility] BUN 38(H) 7 - 25 mg/dL 10/19/2025 9:09 AM [facility] Creatinine 1.16 0.60 - 1.30 mg/dL 10/19/2025 9:09 AM [facility] Glucose 129(H) 70 - 100 mg/dL 10/19/2025 9:09 AM [facility] Calcium 7.2(L) 8.6 - 10.3 mg/dL 10/19/2025 9:09 AM [facility] Phosphorus 4.0 2.1 - 4.7 mg/dL 10/19/2025 9:28 AM [facility] Albumin 2.2(L) 3.5 - 5.7 g/dL 10/19/2025 9:28 AM [facility] Osmolality, Calculated 311(H) 278 - 305 mOsm/kg 10/19/2025 9:09 AM [facility] EGFR 70 10/19/2025 9:09 AM [facility] Comment:As of 2022, the estimated GFR [...] MD LAB BLOOD ORDERABLES Final Resul t [facility] [address] [place] [address], [facility] * (ABNORMAL) CBC (10/19/2025 8:29 AM EST) WBC 9.8 3.8 - 10.8 10E3/uL 10/19/2025 9:06 AM EST [facility] RBC 2.90(L) 4.20 - 5.80 10E6/uL 10/19/2025 9:06 AM EST [facility] Hemoglobin 9.6(L) 13.2 - 17.1 g/dL 10/19/2025 9:06 AM EST [facility] Hematocrit 26.8(L) 38.5 - 50.0 % 10/19/2025 9:06 AM EST [facility] MCV 92.4 80.0 - 100.0 fL 10/19/2025 9:06 AM [facility] MCH 33.2(H) 27.0 - 33.0 pg 10/19/2025 9:06 AM [facility] MCHC 36.0 32.0 - 36.0 g/dL 10/19/2025 9:06 AM [facility] RDW 18.5(H) 11.0 - 15.0 % 10/19/2025 9:06 AM [facility] Platelets 22(L) 140 - 400 10E3/uL 10/19/2025 9:06 AM EST [facility] Comment: CNV Specimen checked for clots. None detected. MPV 8.5 7.5 - 11.5 fL 10/19/2025 9:06 AM EST [facility] Whole Blood 10/19/2025 8:29 AM EST 10/19/2025 8:33 AM EST us Aspen Parr MD LAB BLOOD ORDERABLES Final Resul t [facility] [address] [place] [address] * (ABNORMAL) POC Glucose Monitoring Device (10/19/2025 8:28 AM EST) POC Glucose Monitoring Device 122(H) 70 - 100 mg/dL 10/19/2025 8:39 AM EST [facility] Blood 10/19/2025 8:28 AM EST 10/19/2025 8:38 AM EST Vani Winkler MD POINT OF CARE TEST ORDERABLE S Final Result [facility] [address] [place] [facility]. [address] * (ABNORMAL) POC Glucose Monitoring Device (10/19/2025 7:07 AM EST) POC Glucose Monitoring Device 136(H) 70 - 100 mg/dL 10/19/2025 7:08 AM EST [facility] Blood 10/19/2025 7:07 AM EST 10/19/2025 7:08 AM EST Vani Winkler MD POINT OF CARE TEST ORDERABLE S Final Result [facility] [address] [place] [facility]. [address] * (ABNORMAL) POC Glucose Monitoring Device (10/19/2025 6:28 AM EST) POC Glucose Monitoring Device 109(H) 70 - 100 mg/dL 10/19/2025 6:29 AM EST [facility] Blood 10/19/2025 6:28 AM EST 10/19/2025 6:29 AM EST Vani Winkler MD POINT OF CARE TEST ORDERABLE S Final Result [facility] [address] [place] [facility]. [address] * (ABNORMAL) POC Glucose Monitoring Device (10/19/2025 6:10 AM EST) POC Glucose Monitoring Device 108(H) 70 - 100 mg/dL 10/19/2025 6:12 AM EST [facility] Blood 10/19/2025 6:10 AM EST 10/19/2025 6:11 AM EST Vani Winkler MD POINT OF CARE TEST ORDERABLE S Final Result [facility] [address] [facility] * (ABNORMAL) POC Glucose Monitoring Device (10/19/2025 4:06 AM EST) POC Glucose Monitoring Device 115(H) 70 - 100 mg/dL 10/19/2025 4:07 AM EST [facility] Blood 10/19/2025 4:06 AM EST 10/19/2025 4:07 AM EST Vani Winkler MD POINT OF CARE TEST ORDERABLE S Final Result Performing Organization Address City/[facility]/ZIP Co de Phone Number [facility] [address] [facility] * (ABNORMAL) POC Glucose Monitoring Device (10/19/2025 2:04 AM EST) POC Glucose Monitoring Device 129(H) 70 - 100 mg/dL 10/19/2025 2:06 AM EST [facility] Blood 10/19/2025 2:04 AM EST 10/19/2025 2:05 AM EST Vani Winkler MD POINT OF CARE TEST ORDERABLE S Final Result [facility] [address] [facility] * (ABNORMAL) POC Glucose Monitoring Device (10/18/2025 11:57 PM EST) POC Glucose Monitoring Device 131(H) 70 - 100 mg/dL 10/18/2025 11:58 PM EST [facility] Blood 10/18/2025 11:5 7 PM EST 10/18/2025 11:58 PM EST Vani Winkler MD POINT OF CARE TEST ORDERABLE S Final Result Performing Organization Address City/[facility]/ZIP Co de Phone Number [facility] [address] [place] [address]. [address] * Lactic Acid (10/18/2025 10:20 PM EST) [facility] Lactate 0.8 0.5 - 2.2 mmol/L 10/18/2025 11:03 PM EST [facility] Plasma 10/18/2025 10:2 0 PM EST 10/18/2025 10:26 PM EST Aspen Parr MD LAB BLOOD ORDERABLES Final Resul t Performing Organization Address City/[facility]/ZIP Co de Phone Number [facility] [address] [facility] * Magnesium (10/18/2025 10:20 PM EST) [facility] Magnesium 1.8 1.5 - 2.5 mg/dL 10/18/2025 11:18 PM EST [facility] Plasma 10/18/2025 10:2 0 PM EST 10/18/2025 10:26 PM EST Aspen Parr MD LAB BLOOD ORDERABLES Final Resul t Performing Organization Address City/[facility]/ZIP Co de Phone Number [facility] [address] [facility] * (ABNORMAL) Hepatic Function Panel (10/18/2025 10:20 PM EST) [facility] Total Bilirubin 1.0 0.0 - 1.5 mg/dL 10/18/2025 11:18 PM EST [facility] Bilirubin, Direct 0.51(H) 0.00 - 0.40 mg/dL 10/18/2025 11:18 PM EST [facility] AST 717(H) 13 - 39 U/L 10/18/2025 11:18 PM EST [facility] ALT 792(H) 7 - 52 U/L 10/18/2025 11:18 PM EST [facility] Alkaline Phosphatase 62 36 - 125 U/L 10/18/2025 11:18 PM EST [facility] Total Protein 4.3(L) 6.4 - 8.9 g/dL 10/18/2025 11:18 PM EST [facility] Albumin 2.1(L) 3.5 - 5.7 g/dL 10/18/2025 11:18 PM [facility] Bilirubin, Indirect 0.49 0.00 - 1.10 mg/dL 10/18/2025 11:18 PM [facility] Plasma 10/18/2025 10:2 0 PM EST 10/18/2025 10:26 PM EST us Aspen Parr MD LAB BLOOD ORDERABLES Final Resul t [facility] [address] * (ABNORMAL) Renal Function Panel w/EGFR (10/18/2025 10:20 PM EST) Sodium 146 133 - 146 mmol/L 10/18/2025 11:05 PM [facility] Potassium 3.1(L) 3.5 - 5.3 mmol/L 10/18/2025 11:05 PM [facility] Chloride 113(H) 98 - 110 mmol/L 10/18/2025 11:05 PM [facility] CO2 24 21 - 33 mmol/L 10/18/2025 11:05 PM [facility] Comment:High lactate dehydro genase concentrations in patient samples may cause falsely increased bicarbonate results. If markedly elevated LDH is observed or suspected, please assess results in conjunction with patient`s clinical presentation. In cases of discrepant results, consider evaluating CO2 in with a blood gas order. Anion Gap 9 3 - 16 mmol/L 10/18/2025 11:05 PM [facility] BUN 32(H) 7 - 25 mg/dL 10/18/2025 11:05 PM EST [facility] Creatinine 1.09 0.60 - 1.30 mg/dL 10/18/2025 11:05 PM EST [facility] Glucose 129(H) 70 - 100 mg/dL 10/18/2025 11:05 PM EST [facility] Calcium 7.4(L) 8.6 - 10.3 mg/dL 10/18/2025 11:05 PM EST [facility] Phosphorus 4.0 2.1 - 4.7 mg/dL 10/18/2025 11:18 PM EST [facility] Albumin 2.1(L) 3.5 - 5.7 g/dL 10/18/2025 11:18 PM EST [facility] Osmolality, Calculated 311(H) 278 - 305 mOsm/kg 10/18/2025 11:05 PM EST [facility] EGFR 76 10/18/2025 11:05 PM EST [facility] Comment:As of 2022, the [...] MD LAB BLOOD ORDERABLES Final Resul t [facility] [address] [place] [address], [facility] * (ABNORMAL) Protime-INR (10/18/2025 10:20 PM EST) Protime 21.9(H) 12.1 - 15.1 seconds 10/18/2025 10:52 PM EST [facility] INR 1.8(H) 0.9 - 1.1 10/18/2025 10:52 PM EST [facility] Comment: RECOMMENDED THERAPEUTIC RANGES USING INR : Stable oral anticoagulant therapy: 2.0 - 3.0 Mechanical prosthetic heart valve: 2.5 - 3.5 Recurrent acute myocardial infarction: 2.5 - 3.5 Plasma 10/18/2025 10:2 0 PM EST 10/18/2025 10:26 PM EST us Aspen Parr MD LAB BLOOD ORDERABLES Final Resul t [facility] [address] * (ABNORMAL) CBC (10/18/2025 10:20 PM EST) Pathologist [facility] WBC 11.4(H) 3.8 - 10.8 10E3/uL 10/18/2025 10:59 PM EST [facility] RBC 2.92(L) 4.20 - 5.80 10E6/uL 10/18/2025 10:59 PM EST [facility] Hemoglobin 9.5(L) 13.2 - 17.1 g/dL 10/18/2025 10:59 PM EST [facility] Hematocrit 26.9(L) 38.5 - 50.0 % 10/18/2025 10:59 PM EST [facility] MCV 92.2 80.0 - 100.0 fL 10/18/2025 10:59 PM EST [facility] MCH 32.7 27.0 - 33.0 pg 10/18/2025 10:59 PM EST [facility] MCHC 35.4 32.0 - 36.0 g/dL 10/18/2025 10:59 PM EST [facility] RDW 18.3(H) 11.0 - 15.0 % 10/18/2025 10:59 PM EST [facility] Platelets 22(L) 140 - 400 10E3/uL 10/18/2025 10:59 PM EST [facility] Comment: CNV Specimen checked for clots. None detected. MPV 7.8 7.5 - 11.5 fL 10/18/2025 10:59 PM EST [facility] Whole Blood 10/18/2025 10:2 0 PM EST 10/18/2025 10:26 PM EST us Aspen Parr MD LAB BLOOD ORDERABLES Final Resul t [facility] [address] [facility]. [address] * (ABNORMAL) POC Glucose Monitoring Device (10/18/2025 10:07 PM EST) POC Glucose Monitoring Device 134(H) 70 - 100 mg/dL 10/18/2025 10:08 PM EST [facility] Blood 10/18/2025 10:0 7 PM EST 10/18/2025 10:08 PM EST us Vani Winkler MD POINT OF CARE TEST ORDERABLE S Final Result Performing Organization Address [facility]/ZIP Co de Phone Number [facility] [address] [facility] * (ABNORMAL) POC Glucose Monitoring Device (10/18/2025 8:14 PM EST) POC Glucose Monitoring Device 138(H) 70 - 100 mg/dL 10/18/2025 8:15 PM EST [facility] Blood 10/18/2025 8:14 PM EST 10/18/2025 8:15 PM EST us Vani Winkler MD POINT OF CARE TEST ORDERABLE S Final Result Performing Organization Address City/[facility]/ZIP Co de Phone Number [facility] [address] [facility] * Lactic Acid (10/18/2025 5:47 PM EST) Lactate 0.7 0.5 - 2.2 mmol/L 10/18/2025 8:43 PM EST [facility] Plasma 10/18/2025 5:47 PM EST 10/18/2025 7:56 PM EST us Aspen Parr MD LAB BLOOD ORDERABLES Final Resul t Performing Organization Address City/[facility]/ZIP Co de Phone Number [facility] [address] * Magnesium (10/18/2025 5:47 PM EST) Magnesium 1.9 1.5 - 2.5 mg/dL 10/18/2025 6:40 PM EST [facility] Plasma 10/18/2025 5:47 PM EST 10/18/2025 5:54 PM EST us Aspen Parr MD LAB BLOOD ORDERABLES Final Resul t Performing Organization Address [facility] Co de Phone Number [facility] [address] * (ABNORMAL) Hepatic Function Panel (10/18/2025 5:47 PM EST) Total Bilirubin 1.1 0.0 - 1.5 mg/dL 10/18/2025 6:40 PM EST [facility] Bilirubin, Direct 0.56(H) 0.00 - 0.40 mg/dL 10/18/2025 6:40 PM EST [facility] AST 965(H) 13 - 39 U/L 10/18/2025 6:40 PM EST [facility] ALT 871(H) 7 - 52 U/L 10/18/2025 6:40 PM EST [facility] Alkaline Phosphatase 61 36 - 125 U/L 10/18/2025 6:40 PM EST [facility] Total Protein 4.3(L) 6.4 - 8.9 g/dL 10/18/2025 6:40 PM EST [facility] Albumin 2.2(L) 3.5 - 5.7 g/dL 10/18/2025 6:40 PM EST [facility] Bilirubin, Indirect 0.54 0.00 - 1.10 mg/dL 10/18/2025 6:40 PM EST [facility] Plasma 10/18/2025 5:47 PM EST 10/18/2025 5:54 PM EST us Aspen Parr MD LAB BLOOD ORDERABLES Final Resul t [facility] [address] [place] [address], [facility] * (ABNORMAL) Renal Function Panel w/EGFR (10/18/2025 5:47 PM EST) Sodium 144 133 - 146 mmol/L 10/18/2025 6:27 PM EST [facility] Potassium 3.4(L) 3.5 - 5.3 mmol/L 10/18/2025 6:27 PM EST [facility] Chloride 112(H) 98 - 110 mmol/L 10/18/2025 6:27 PM EST [facility] CO2 24 21 - 33 mmol/L 10/18/2025 6:27 PM EST [facility] Comment:High lactate dehydro genase concentrations in patient samples may cause falsely increased bicarbonate results. If markedly elevated LDH is observed or suspected, please assess results in conjunction with patient`s clinical presentation. In cases of discrepant results, consider evaluating CO2 in with a blood gas order. Anion Gap 8 3 - 16 mmol/L 10/18/2025 6:27 PM EST [facility] BUN 29(H) 7 - 25 mg/dL 10/18/2025 6:27 PM [facility] Creatinine 1.09 0.60 - 1.30 mg/dL 10/18/2025 6:27 PM EST [facility] Glucose 136(H) 70 - 100 mg/dL 10/18/2025 6:27 PM EST [facility] Calcium 7.5(L) 8.6 - 10.3 mg/dL 10/18/2025 6:27 PM [facility] Phosphorus 3.8 2.1 - 4.7 mg/dL 10/18/2025 6:40 PM [facility] Albumin 2.2(L) 3.5 - 5.7 g/dL 10/18/2025 6:40 PM [facility] Osmolality, Calculated 306(H) 278 - 305 mOsm/kg 10/18/2025 6:27 PM EST [facility] EGFR 76 10/18/2025 6:27 PM EST [facility] Comment:As of 2022, the [...] MD LAB BLOOD ORDERABLES Final Resul t [facility] [address] [place] [id number] * (ABNORMAL) Protime-INR (10/18/2025 5:47 PM EST) Protime 21.8(H) 12.1 - 15.1 seconds 10/18/2025 6:13 PM EST [facility] INR 1.8(H) 0.9 - 1.1 10/18/2025 6:13 PM EST [facility] Comment: RECOMMENDED THERAPEUTIC RANGES USING INR : Stable oral anticoagulant therapy: 2.0 - 3.0 Mechanical prosthetic heart valve: 2.5 - 3.5 Recurrent acute myocardial infarction: 2.5 - 3.5 Plasma 10/18/2025 5:47 PM EST 10/18/2025 5:54 PM EST Aspen Parr MD LAB BLOOD ORDERABLES Final Resul t [facility] [address] [facility] * (ABNORMAL) CBC (10/18/2025 5:47 PM EST) WBC 11.8(H) 3.8 - 10.8 10E3/uL 10/18/2025 6:06 PM EST [facility] RBC 3.06(L) 4.20 - 5.80 10E6/uL 10/18/2025 6:06 PM EST [facility] Hemoglobin 10.0(L) 13.2 - 17.1 g/dL 10/18/2025 6:06 PM EST [facility] Hematocrit 28.3(L) 38.5 - 50.0 % 10/18/2025 6:06 PM EST [facility] MCV 92.5 80.0 - 100.0 fL 10/18/2025 6:06 PM EST [facility] MCH 32.5 27.0 - 33.0 pg 10/18/2025 6:06 PM EST [facility] MCHC 35.2 32.0 - 36.0 g/dL 10/18/2025 6:06 PM EST [facility] RDW 18.6(H) 11.0 - 15.0 % 10/18/2025 6:06 PM EST [facility] Platelets 22(L) 140 - 400 10E3/uL 10/18/2025 6:06 PM EST [facility] Comment: CNV Specimen checked for clots. None detected. MPV 7.7 7.5 - 11.5 fL 10/18/2025 6:06 PM EST [facility] Whole Blood 10/18/2025 5:47 PM EST 10/18/2025 5:54 PM EST Aspen Parr MD LAB BLOOD ORDERABLES Final Resul t [facility] [address] [facility]. [address] * (ABNORMAL) POC Glucose Monitoring Device (10/18/2025 5:45 PM EST) POC Glucose Monitoring Device 135(H) 70 - 100 mg/dL 10/18/2025 5:46 PM EST [facility] Blood 10/18/2025 5:45 PM EST 10/18/2025 5:46 PM EST Vani Winkler MD POINT OF CARE TEST ORDERABLE S Final Result [facility] [address] [facility]. [address] * (ABNORMAL) POC Glucose Monitoring Device (10/18/2025 3:06 PM EST) POC Glucose Monitoring Device 128(H) 70 - 100 mg/dL 10/18/2025 3:07 PM EST [facility] Blood 10/18/2025 3:06 PM EST 10/18/2025 3:07 PM EST Vani Winkler MD POINT OF CARE TEST ORDERABLE S Final Result [facility] [address] [facility]. [address] * (ABNORMAL) POC Glucose Monitoring Device (10/18/2025 1:15 PM EST) POC Glucose Monitoring Device 128(H) 70 - 100 mg/dL 10/18/2025 1:15 PM EST [facility] Blood 10/18/2025 1:15 PM EST 10/18/2025 1:15 PM EST Vani Winkler MD POINT OF CARE TEST ORDERABLE S Final Result [facility] [address] [facility]. [address] * (ABNORMAL) POC Glucose Monitoring Device (10/18/2025 12:12 PM EST) POC Glucose Monitoring Device 124(H) 70 - 100 mg/dL 10/18/2025 12:13 PM EST [facility] Blood 10/18/2025 12:1 2 PM EST 10/18/2025 12:13 PM EST us Vani Winklre MD POINT OF CARE TEST ORDERABLE S Final Result [facility] [address] [place] [address], [facility] * Prepare Fresh Frozen Plasma (10/18/2025 11:58 AM EST) Product Code [id number] [facility] Unit Number [id number] [facility] Dispense Status Released from Crossmatch_RE [facility] Blood Expiration Date [facility] Coding System [id number] [facility] Product Code [id number] HCLL Unit Number [id number] HCLL Dispense Status Released from Crossmatch_RE HCLL Blood Expiration Date HCLL Coding System [id number] HCLL Product Code N2182F11 HCLL Unit Number [id number] HCLL Dispense Status Released from Crossmatch_RE HCLL Blood Expiration Date HCLL Coding System [id number] HCLL Product Code P0004T91 HCLL Unit Number [id number] HCLL Dispense Status Released from Crossmatch_RE HCLL Blood Expiration Date HCLL Coding System [id number] HCLL Product Code F9303S92 HCLL Unit Number [id number] HCLL Dispense Status Released from Crossmatch_RE HCLL Blood Expiration Date HCLL Coding System [id number] HCLL us Attending Provider Unknown BLOOD BANK PRODUCT OR DERABLES Final Result HCLL * Lactic Acid (10/18/2025 11:21 AM EST) Lactate 0.7 0.5 - 2.2 mmol/L 10/18/2025 12:05 PM EST [facility] Plasma 10/18/2025 11:2 1 AM EST 10/18/2025 11:25 AM EST us Aspen Parr MD LAB BLOOD ORDERABLES Final Resul t Performing Organization Address City/[facility]/ZIP Co de Phone Number [facility] [address] * Magnesium (10/18/2025 11:21 AM EST) Magnesium 2.0 1.5 - 2.5 mg/dL 10/18/2025 12:23 PM EST [facility] Plasma 10/18/2025 11:2 1 AM EST 10/18/2025 11:25 AM EST us Aspen Parr MD LAB BLOOD ORDERABLES Final Resul t Performing Organization Address [facility] de Phone Number [facility] [address] [facility] * (ABNORMAL) Hepatic Function Panel (10/18/2025 11:21 AM EST) Total Bilirubin 1.3 0.0 - 1.5 mg/dL 10/18/2025 12:23 PM EST [facility] Bilirubin, Direct 0.74(H) 0.00 - 0.40 mg/dL 10/18/2025 12:23 PM EST [facility] AST 1,689(H) 13 - 39 U/L 10/18/2025 12:23 PM EST [facility] ALT 1034(H) 7 - 52 U/L 10/18/2025 12:23 PM EST [facility] Alkaline Phosphatase 60 36 - 125 U/L 10/18/2025 12:23 PM EST [facility] Total Protein 4.3(L) 6.4 - 8.9 g/dL 10/18/2025 12:23 PM EST [facility] Albumin 2.3(L) 3.5 - 5.7 g/dL 10/18/2025 12:23 PM EST [facility] Bilirubin, Indirect 0.56 0.00 - 1.10 mg/dL 10/18/2025 12:23 PM EST [facility] Plasma 10/18/2025 11:2 1 AM EST 10/18/2025 11:25 AM EST us Aspen Parr MD LAB BLOOD ORDERABLES Final Resul t [facility] [address] [place] [id number], [facility] * (ABNORMAL) Renal Function Panel w/EGFR (10/18/2025 11:21 AM EST) Sodium 146 133 - 146 mmol/L 10/18/2025 12:06 PM EST [facility] Potassium 3.9 3.5 - 5.3 mmol/L 10/18/2025 12:06 PM [facility] Chloride 114(H) 98 - 110 mmol/L 10/18/2025 12:06 PM [facility] CO2 25 21 - 33 mmol/L 10/18/2025 12:06 PM [facility] Comment:High lactate dehydro genase concentrations in patient samples may cause falsely increased bicarbonate results. If markedly elevated LDH is observed or suspected, please assess results in conjunction with patient`s clinical presentation. In cases of discrepant results, consider evaluating CO2 in with a blood gas order. Anion Gap 7 3 - 16 mmol/L 10/18/2025 12:06 PM [facility] BUN 26(H) 7 - 25 mg/dL 10/18/2025 12:06 PM [facility] Creatinine 1.01 0.60 - 1.30 mg/dL 10/18/2025 12:06 PM [facility] Glucose 113(H) 70 - 100 mg/dL 10/18/2025 12:06 PM [facility] Calcium 7.8(L) 8.6 - 10.3 mg/dL 10/18/2025 12:06 PM [facility] Phosphorus 3.1 2.1 - 4.7 mg/dL 10/18/2025 12:23 PM [facility] Albumin 2.3(L) 3.5 - 5.7 g/dL 10/18/2025 12:23 PM [facility] Osmolality, Calculated 308(H) 278 - 305 mOsm/kg 10/18/2025 12:06 PM [facility] EGFR 83 10/18/2025 12:06 PM EST [facility] Comment:As of 2022, the estimated GFR [...] Resul t Performing Organization Address City/[facility] Co de Phone Number [facility] [address] [facility] * (ABNORMAL) Protime-INR (10/18/2025 11:21 AM EST) Protime 23.6(H) 12.1 - 15.1 seconds 10/18/2025 11:44 AM EST [facility] INR 2.0(H) 0.9 - 1.1 10/18/2025 11:44 AM EST [facility] Comment: RECOMMENDED THERAPEUTIC RANGES USING INR : Stable oral anticoagulant therapy: 2.0 - 3.0 Mechanical prosthetic heart valve: 2.5 - 3.5 Recurrent acute myocardial infarction: 2.5 - 3.5 Plasma 10/18/2025 11:2 1 AM EST 10/18/2025 11:25 AM EST Aspen Parr MD LAB BLOOD ORDERABLES Final Resul t [facility] [address] [facility] * (ABNORMAL) CBC (10/18/2025 11:21 AM EST) WBC 10.9(H) 3.8 - 10.8 10E3/uL 10/18/2025 11:44 AM EST [facility] RBC 3.10(L) 4.20 - 5.80 10E6/uL 10/18/2025 11:44 AM EST [facility] Hemoglobin 10.2(L) 13.2 - 17.1 g/dL 10/18/2025 11:44 AM EST [facility] Hematocrit 29.0(L) 38.5 - 50.0 % 10/18/2025 11:44 AM EST [facility] MCV 93.7 80.0 - 100.0 fL 10/18/2025 11:44 AM EST [facility] MCH 32.9 27.0 - 33.0 pg 10/18/2025 11:44 AM EST [facility] MCHC 35.1 32.0 - 36.0 g/dL 10/18/2025 11:44 AM EST [facility] RDW 18.4(H) 11.0 - 15.0 % 10/18/2025 11:44 AM [facility] Platelets 29(L) 140 - 400 10E3/uL 10/18/2025 11:44 AM EST [facility] Comment:CNV MPV 7.6 7.5 - 11.5 fL 10/18/2025 11:44 AM EST [facility] Whole Blood 10/18/2025 11:2 1 AM EST 10/18/2025 11:25 AM EST us Aspen Parr MD LAB BLOOD ORDERABLES Final Resul t [facility] [address] * (ABNORMAL) POC Glucose Monitoring Device (10/18/2025 11:04 AM EST) POC Glucose Monitoring Device 121(H) 70 - 100 mg/dL 10/18/2025 11:05 AM EST [facility] Blood 10/18/2025 11:0 4 AM EST 10/18/2025 11:05 AM EST us Vani Winkler MD POINT OF CARE TEST ORDERABLE S Final Result [facility] [address] * (ABNORMAL) POC Glucose Monitoring Device (10/18/2025 10:29 AM EST) POC Glucose Monitoring Device 120(H) 70 - 100 mg/dL 10/18/2025 10:34 AM EST [facility] Blood 10/18/2025 10:2 9 AM EST 10/18/2025 10:34 AM EST us Vani Winkler MD POINT OF CARE TEST ORDERABLE S Final Result Performing Organization Address [facility] Co de Phone Number [facility] [address] [facility] * US Duplex Pmb-Syy-Fvsexip Comp (10/18/2025 9:35 AM EST) Anatomical Region [...] EXAM: US ABDOMEN LIMITED EXAM: US DUPLEX [id number] COMPLETE INDICATION: Post-op liver transplant Day 1 [...] EXAM: US ABDOMEN LIMITED EXAM: US DUPLEX [id number] COMPLETE INDICATION: Post-op liver transplant Day 1 [...] 9:53 AM EST us Aspen Parr MD G US ORDERABLES Final Result * US Abdomen [...] EXAM: US ABDOMEN LIMITED EXAM: US DUPLEX [id number] COMPLETE INDICATION: Post-op liver transplant Day 1 [...] EXAM: US ABDOMEN LIMITED EXAM: US DUPLEX [id number] COMPLETE INDICATION: Post-op liver transplant Day 1 [...] 9:53 AM EST us Aspen Parr MD [facility] [place] ORDERABLES Final Result * (ABNORMAL) POC Glucose Monitoring Device (10/18/2025 9:11 AM EST) POC Glucose Monitoring Device 165(H) 70 - 100 mg/dL 10/18/2025 9:13 AM EST [facility] Blood 10/18/2025 9:11 AM EST 10/18/2025 9:12 AM EST us Vani Winkler MD POINT OF CARE TEST ORDERABLE S Final Result [facility] [address] * (ABNORMAL) POC Glucose Monitoring Device (10/18/2025 7:56 AM EST) POC Glucose Monitoring Device 179(H) 70 - 100 mg/dL 10/18/2025 7:57 AM EST [facility] Blood 10/18/2025 7:56 AM EST 10/18/2025 7:57 AM EST us Vani Winkler MD POINT OF CARE TEST ORDERABLE S Final Result [facility] [address] * (ABNORMAL) POC Glucose Monitoring Device (10/18/2025 6:59 AM EST) POC Glucose Monitoring Device 187(H) 70 - 100 mg/dL 10/18/2025 7:00 AM EST [facility] Blood 10/18/2025 6:59 AM EST 10/18/2025 7:00 AM EST us Vani Winkler MD POINT OF CARE TEST ORDERABLE S Final Result [facility] [address] * X-ray Portable Chest (10/18/2025 6:37 [...] below level of diaphragms and outside the xiehh-ge-yccr. Right internal jugular approach pulmonary artery catheter [...] courses below level of diaphragms andoutside the vgxcb-lb-evwu. Right internal jugular approach pulmonaryartery catheter projects [...] Units (10/18/2025 6:17 AM EST) Product Code [id number] HCLL Unit Number [id number] HCLL Dispense Status Presumed Transfused_PT HCLL Blood Expiration Date HCLL Coding System [id number] HCLL Blood Bank Product Oskar Torres MD BLOOD BANK PRODUCT ORDERABLES Final Result Performing Organization Address City/[facility] Co de Phone Number HCLL * Prepare Platelets, leukoreduced, 2 Units (10/18/2025 6:17 AM EST) Product Code VU726T99 HCLL Unit Number [id number] HCLL Dispense Status Presumed Transfused_PT HCLL Blood Expiration Date HCLL Coding System JNIW031 HCLL Product Code I1941O00 HCLL Unit Number [id number] HCLL Dispense Status Presumed Transfused_PT HCLL Blood Expiration Date HCLL Coding System TJYR179 HCLL Blood Bank Product Slade Munoz MD BLOOD BANK PRODUCT ORDERABLES Fi nal Result Performing Organization Address City/[facility] Co de Phone Number HCLL * Prepare RBC, leukoreduced, 5 Units (10/18/2025 6:16 AM EST) Product Code S6372P64 HCLL Unit Number [id number] HCLL Dispense Status Presumed Transfused_PT HCLL Blood Expiration Date HCLL Coding System NZIQ678 HCLL Product Code V3364K19 HCLL Unit Number [id number] HCLL Dispense Status Presumed Transfused_PT HCLL Blood Expiration Date HCLL Coding System BIFA497 HCLL Product Code E4802R00 HCLL Unit Number [id number] HCLL Dispense Status Presumed Transfused_PT HCLL Blood Expiration Date HCLL Coding System YJDR504 HCLL Product Code H5911S78 HCLL Unit Number [id number] HCLL Dispense Status Released from Crossmatch_RE HCLL Blood Expiration Date HCLL Coding System LHGW418 HCLL Product Code E2402L82 HCLL Unit Number [id number] HCLL Dispense Status Presumed Transfused_PT HCLL Blood Expiration Date HCLL Coding System FUAC843 HCLL Blood Bank Product Kassi INTERIANO BLOOD BANK PRODUCT ORDERABLES Final Result Performing Organization Address [facility] Co de Phone Number HCLL * Prepare Cryoprecipitate (10/18/2025 6:15 AM EST) Product Code A4820R09 HCLL Unit Number [id number] HCLL Dispense Status Presumed Transfused_PT HCLL Blood Expiration Date HCLL Coding System RHNV429 HCLL Attending Provider Unknown BLOOD BANK PRODUCT OR DERABLES Final Result Performing Organization Address City/[facility] Co de Phone Number HCLL * Prepare Cryoprecipitate, 1 Units (10/18/2025 6:15 AM EST) Product Code T3072B36 HCLL Unit Number [id number] HCLL Dispense Status Presumed Transfused_PT HCLL Blood Expiration Date HCLL Coding System YTRF230 HCLL Blood Bank Product Oskar Torres MD BLOOD BANK PRODUCT ORDERABLES Final Result Performing Organization Address [facility] de Phone Number HCLL * Prepare Cryoprecipitate, 1 Units (10/18/2025 6:15 AM EST) Product Code I4718E69 HCLL Unit Number [id number] HCLL Dispense Status Presumed Transfused_PT HCLL Blood Expiration Date HCLL Coding System BODD003 HCLL Product Code J1650J01 HCLL Unit Number [id number] HCLL Dispense Status Presumed Transfused_PT HCLL Blood Expiration Date HCLL Coding System ZFLA170 HCLL Blood Bank Product Shannan Salas MD BLOOD BANK PRODUCT ORDERABLE S Final Result Performing Organization Address [facility] de Phone Number HCLL * Prepare Cryoprecipitate, 1 Units (10/18/2025 6:15 AM EST) Product Code A8788W51 HCLL Unit Number [id number] HCLL Dispense Status Presumed Transfused_PT HCLL Blood Expiration Date HCLL Coding System JWSO054 HCLL Blood Bank Product Slade Munoz MD BLOOD BANK PRODUCT ORDERABLES Fi nal Result Performing Organization Address [facility] de Phone Number HCLL * Prepare Cryoprecipitate, 1 Units (10/18/2025 6:15 AM EST) Product Code K8265U62 HCLL Unit Number [id number] HCLL Dispense Status Presumed Transfused_PT HCLL Blood Expiration Date HCLL Coding System ZIRT239 HCLL Blood Bank Product Slade Munoz MD BLOOD BANK PRODUCT ORDERABLES Fi nal Result Performing Organization Address City/[facility] Co de Phone Number HCLL * Prepare RBC, leukoreduced (10/18/2025 6:15 AM EST) Product Code J1319B53 HCLL Unit Number [id number] HCLL Dispense Status Released from Crossmatch_RE HCLL Blood Expiration Date HCLL Coding System NUBQ477 HCLL Product Code X4621J45 HCLL Unit Number [id number] HCLL Dispense Status Released from Crossmatch_RE HCLL Blood Expiration Date HCLL Coding System AYCH086 HCLL Product Code R8166F18 HCLL Unit Number [id number] HCLL Dispense Status Released from Crossmatch_RE HCLL Blood Expiration Date HCLL Coding System IDVY732 HCLL Product Code Q5741G49 HCLL Unit Number [id number] HCLL Dispense Status Released from Crossmatch_RE HCLL Blood Expiration Date HCLL Coding System AAGG282 HCLL Product Code B0262P12 HCLL Unit Number [id number] HCLL Dispense Status Presumed Transfused_PT HCLL Blood Expiration Date HCLL Coding System OXVN776 HCLL us Attending Provider Unknown BLOOD BANK PRODUCT OR DERABLES Final Result HCLL * Prepare Fresh Frozen Plasma, 5 Units (10/18/2025 6:15 AM EST) Product Code U5774Y74 HCLL Unit Number [id number] HCLL Dispense Status Presumed Transfused_PT HCLL Blood Expiration Date HCLL Coding System ZFNT844 HCLL Product Code W2950K06 HCLL Unit Number [id number] HCLL Dispense Status Presumed Transfused_PT HCLL Blood Expiration Date HCLL Coding System USND268 HCLL Product Code Z9146A44 HCLL Unit Number [id number] HCLL Dispense Status Presumed Transfused_PT HCLL Blood Expiration Date HCLL Coding System NRFF356 HCLL Product Code J1077H75 HCLL Unit Number [id number] HCLL Dispense Status Presumed Transfused_PT HCLL Blood Expiration Date HCLL Coding System MNKU262 HCLL Product Code N2792L89 HCLL Unit Number [id number] HCLL Dispense Status Presumed Transfused_PT HCLL Blood Expiration Date HCLL Coding System KTFC999 HCLL Blood Bank Product Kassi INTERIANO BLOOD BANK PRODUCT ORDERABLES Final Result HCLL * (ABNORMAL) POC Glucose Monitoring Device (10/18/2025 6:06 AM EST) [facility] POC Glucose Monitoring Device 214(H) 70 - 100 mg/dL 10/18/2025 6:06 AM EST [facility] Blood 10/18/2025 6:06 AM EST 10/18/2025 6:06 AM EST Vani Winkler MD POINT OF CARE TEST ORDERABLE S Final Result [facility] [address] [place] [address], [facility] * (ABNORMAL) Blood gas, arterial (10/18/2025 5:19 AM EST) Pathologist [facility] O2 Sat, Arterial 97 10/18/2025 5:28 AM EST [facility] FIO2 40 10/18/2025 5:28 AM EST [facility] pH, Arterial 7.34(L) 7.35 - 7.45 10/18/2025 5:28 AM EST [facility] pCO2, Arterial 48(H) 35 - 45 mm Hg 10/18/2025 5:28 AM EST [facility] pO2, Arterial 84 80 - 100 mm Hg 10/18/2025 5:28 AM EST [facility] HCO3, Arterial 25 22 - 26 mmol/L 10/18/2025 5:28 AM EST [facility] CO2 Content,Arteri al 27 23 - 27 mmol/L 10/18/2025 5:28 AM EST [facility] Base Excess, Arterial -0.2 -2.0 - 3.0 mmol/L 10/18/2025 5:28 AM EST [facility] %HBO2, Arterial 94.1(L) 95.0 - 98.0 % 10/18/2025 5:28 AM EST [facility] Carboxyhemoglo bin, Arterial 2.5 % 10/18/2025 5:28 AM EST [facility] Comment: CARBOXYHEMOGLOBIN (CO) REFERENCE RANGES: Non-Smokers: <2 % Smokers: <8 % TOXIC: >20 % Methemoglobin, Arterial 0.5 0.0 - 1.5 % 10/18/2025 5:28 AM EST [facility] Blood, Arterial 10/18/2025 5 :19 AM EST 10/18/2025 5:25 AM EST us Vani Winkler MD LAB BLOOD ORDERABLES Final R esult Performing Organization Address [facility] Co de Phone Number [facility] [address] * Lactic Acid (10/18/2025 5:02 AM EST) Lactate 1.0 0.5 - 2.2 mmol/L 10/18/2025 5:47 AM EST [facility] Plasma 10/18/2025 5:02 AM EST 10/18/2025 5:09 AM EST us Aspen Parr MD LAB BLOOD ORDERABLES Final Resul t Performing Organization Address City/[facility] Co de Phone Number [facility] [address] * Magnesium (10/18/2025 5:02 AM EST) Magnesium 2.0 1.5 - 2.5 mg/dL 10/18/2025 6:05 AM EST [facility] Plasma 10/18/2025 5:02 AM EST 10/18/2025 5:13 AM EST Aspen Parr MD LAB BLOOD ORDERABLES Final Resul t Performing Organization Address [facility]/ZIP Co de Phone Number [facility] [address] [facility] * (ABNORMAL) Hepatic Function Panel (10/18/2025 5:02 AM EST) Total Bilirubin 1.5 0.0 - 1.5 mg/dL 10/18/2025 6:05 AM EST [facility] Bilirubin, Direct 0.77(H) 0.00 - 0.40 mg/dL 10/18/2025 6:05 AM EST [facility] AST 2,612(H) 13 - 39 U/L 10/18/2025 6:05 AM EST [facility] ALT 1072(H) 7 - 52 U/L 10/18/2025 6:05 AM EST [facility] Alkaline Phosphatase 50 36 - 125 U/L 10/18/2025 6:05 AM EST [facility] Total Protein 4.0(L) 6.4 - 8.9 g/dL 10/18/2025 6:05 AM EST [facility] Albumin 2.2(L) 3.5 - 5.7 g/dL 10/18/2025 6:05 AM EST [facility] Bilirubin, Indirect 0.73 0.00 - 1.10 mg/dL 10/18/2025 6:05 AM EST [facility] Plasma 10/18/2025 5:02 AM EST 10/18/2025 5:13 AM EST us Aspen Parr MD LAB BLOOD ORDERABLES Final Resul t [facility] [address] * (ABNORMAL) Renal Function Panel w/EGFR (10/18/2025 5:02 AM EST) Sodium 146 133 - 146 mmol/L 10/18/2025 6:05 AM [facility] Potassium 3.4(L) 3.5 - 5.3 mmol/L 10/18/2025 6:05 AM [facility] Chloride 111(H) 98 - 110 mmol/L 10/18/2025 6:05 AM [facility] CO2 26 21 - 33 mmol/L 10/18/2025 6:05 AM [facility] Comment:High lactate dehydro genase concentrations in patient samples may cause falsely increased bicarbonate results. If markedly elevated LDH is observed or suspected, please assess results in conjunction with patient`s clinical presentation. In cases of discrepant results, consider evaluating CO2 in with a blood gas order. Anion Gap 9 3 - 16 mmol/L 10/18/2025 6:05 AM [facility] BUN 22 7 - 25 mg/dL 10/18/2025 6:05 AM [facility] Creatinine 0.93 0.60 - 1.30 mg/dL 10/18/2025 6:05 AM [facility] Glucose 193(H) 70 - 100 mg/dL 10/18/2025 6:05 AM [facility] Calcium 7.8(L) 8.6 - 10.3 mg/dL 10/18/2025 6:05 AM [facility] Phosphorus 3.0 2.1 - 4.7 mg/dL 10/18/2025 6:05 AM [facility] Albumin 2.2(L) 3.5 - 5.7 g/dL 10/18/2025 6:05 AM [facility] Osmolality, Calculated 311(H) 278 - 305 mOsm/kg 10/18/2025 6:05 AM [facility] EGFR >90 10/18/2025 6:05 AM [facility] Comment: As of 2022, the estimated [...] Resul t Performing Organization Address City/[facility] Co de Phone Number [facility] [address] * (ABNORMAL) Protime-INR (10/18/2025 5:02 AM EST) Protime 26.0(H) 12.1 - 15.1 seconds 10/18/2025 5:32 AM EST [facility] INR 2.2(H) 0.9 - 1.1 10/18/2025 5:32 AM EST [facility] Comment: RECOMMENDED THERAPEUTIC RANGES USING INR : Stable oral anticoagulant therapy: 2.0 - 3.0 Mechanical prosthetic heart valve: 2.5 - 3.5 Recurrent acute myocardial infarction: 2.5 - 3.5 Plasma 10/18/2025 5:02 AM EST 10/18/2025 5:13 AM EST Aspen Parr MD LAB BLOOD ORDERABLES Final Resul t Performing Organization Address City/[facility] Co de Phone Number [facility] [address] * (ABNORMAL) CBC (10/18/2025 5:02 AM EST) WBC 7.0 3.8 - 10.8 10E3/uL 10/18/2025 5:27 AM EST [facility] RBC 2.94(L) 4.20 - 5.80 10E6/uL 10/18/2025 5:27 AM EST [facility] Hemoglobin 9.6(L) 13.2 - 17.1 g/dL 10/18/2025 5:27 AM EST [facility] Hematocrit 27.6(L) 38.5 - 50.0 % 10/18/2025 5:27 AM EST [facility] MCV 94.0 80.0 - 100.0 fL 10/18/2025 5:27 AM EST [facility] MCH 32.6 27.0 - 33.0 pg 10/18/2025 5:27 AM EST [facility] MCHC 34.7 32.0 - 36.0 g/dL 10/18/2025 5:27 AM EST [facility] RDW 19.0(H) 11.0 - 15.0 % 10/18/2025 5:27 AM EST [facility] Platelets 36(L) 140 - 400 10E3/uL 10/18/2025 5:27 AM EST [facility] Comment:CNV MPV 8.1 7.5 - 11.5 fL 10/18/2025 5:27 AM EST [facility] Whole Blood 10/18/2025 5:02 AM EST 10/18/2025 5:13 AM EST Aspen Parr MD LAB BLOOD ORDERABLES Final Resul t Performing Organization Address City/State/[facility] Co de Phone Number [facility] [address] * (ABNORMAL) POC Glucose Monitoring Device (10/18/2025 5:00 AM EST) POC Glucose Monitoring Device 231(H) 70 - 100 mg/dL 10/18/2025 5:06 AM EST [facility] Blood 10/18/2025 5:00 AM EST 10/18/2025 5:06 AM EST us Vani Winkler MD POINT OF CARE TEST ORDERABLE S Final Result Performing Organization Address City/[facility] Co de Phone Number [facility] [address] * (ABNORMAL) POC Glucose Monitoring Device (10/18/2025 4:05 AM EST) POC Glucose Monitoring Device 244(H) 70 - 100 mg/dL 10/18/2025 4:06 AM EST [facility] Blood 10/18/2025 4:05 AM EST 10/18/2025 4:06 AM EST us Vani Winkler MD POINT OF CARE TEST ORDERABLE S Final Result Performing Organization Address [facility] Co de Phone Number [facility] [address] [facility] * (ABNORMAL) POC Glucose Monitoring Device (10/18/2025 3:02 AM EST) POC Glucose Monitoring Device 246(H) 70 - 100 mg/dL 10/18/2025 3:07 AM EST [facility] Blood 10/18/2025 3:02 AM EST 10/18/2025 3:07 AM EST us Vani Winkler MD POINT OF CARE TEST ORDERABLE S Final Result Performing Organization Address [facility] Co de Phone Number [facility] [address] [facility] * (ABNORMAL) POC Glucose Monitoring Device (10/18/2025 2:05 AM EST) POC Glucose Monitoring Device 249(H) 70 - 100 mg/dL 10/18/2025 2:14 AM EST [facility] Blood 10/18/2025 2:05 AM EST 10/18/2025 2:14 AM EST us Vani Winkler MD POINT OF CARE TEST ORDERABLE S Final Result [facility] [address] * (ABNORMAL) POC Glucose Monitoring Device (10/18/2025 1:06 AM EST) POC Glucose Monitoring Device 237(H) 70 - 100 mg/dL 10/18/2025 1:07 AM EST [facility] Blood 10/18/2025 1:06 AM EST 10/18/2025 1:07 AM EST Vani Winkler MD POINT OF CARE TEST ORDERABLE S Final Result Performing Organization Address City/[facility]/ZIP Co de Phone Number [facility] [address] [facility]. [address] * (ABNORMAL) POC Glucose Monitoring Device (10/17/2025 11:55 PM EST) POC Glucose Monitoring Device 227(H) 70 - 100 mg/dL 10/18/2025 12:06 AM EST [facility] Blood 10/17/2025 11:5 5 PM EST 10/18/2025 12:06 AM EST Vani Winkler MD POINT OF CARE TEST ORDERABLE S Final Result Performing Organization Address [facility] Co de Phone Number [facility] [address] [facility]. [address] * XR Portable Feeding Tube Check [...] DO at 10/17/2025 11:50 PM EST us Duarte El MD IMG DIAGNOSTIC IMAGI NG [...] 11:50 PM EST us Aspen Parr MD IMG DIAGNOSTIC IMAGING ORDERABLE S Final Result * Calcium Free, Serum (10/17/2025 10:50 PM EST) Free Calcium, Ser 4.76 4.40 - 5.40 mg/dL 10/17/2025 11:15 PM EST [facility] Comment:Free calcium levels vary inversely with pH by approximately 5% for each 0.1 unit of pH change. Assay results have been normalized to pH = 7.40. Serum 10/17/2025 10:5 0 PM EST 10/17/2025 10:55 PM EST Narrative [facility] - 10/17/2025 11:15 PM EST This test has been developed and its performance characteristics determined by [facility] which is certified under the [...] El MD LAB BLOOD ORDERABLES Final Result [facility] [address] [place] [address], [facility] * (ABNORMAL) TEG-Standard Global Hemostasis (Rapid TEG with Heparin Effect, Contains a Baseline TEG) (10/17/2025 10:50 PM EST) Citrated Kaolin Reaction Time (TEGHEPARINASE) 12.7(H) 4.6 - 9.1 minutes 10/18/2025 12:03 AM EST [facility] Citrated Rapid Teg Maximum Amplitude (TEGHEPARINASE) 47.8(L) 52.0 - 70.0 mm 10/18/2025 12:03 AM EST [facility] Citrated Functional Fibrinogen Maximum Amplitude (TEGHEPARINASE) 16.8 15.0 - 32.0 mm 10/18/2025 12:03 AM EST [facility] Citrated Kaolin W/Heparinase Reaction Time (TEGHEPARINASE) 11.0(H) 4.3 - 8.3 minutes 10/18/2025 12:03 AM EST [facility] Citrated Kaolin K-Time (TEGHEPARINASE) 4.9(H) 0.8 - 2.1 minutes 10/18/2025 12:03 AM EST [facility] Citrated Kaolin Angle (TEGHEPARINASE) 40.0(L) 63.0 - 78.0 degrees 10/18/2025 12:03 AM EST [facility] Citrated Kaolin Maximum Amplitude (TEGHEPARINASE) 45.2(L) 52.0 - 69.0 mm 10/18/2025 12:03 AM EST [facility] Citrated Functional Fibrinogen- Fibrinogen Level (TEGHEPARINASE) 306.6 278.0 - 581.0 mg/dL 10/18/2025 12:03 AM EST [facility] Whole Blood (Citrate) 10/17/2025 10:50 PM EST 10/17/2025 10:55 PM EST Aspen Parr MD LAB BLOOD ORDERABLES Final Resul t [facility] [address] * Lactic Acid (10/17/2025 10:50 PM EST) Lactate 1.1 0.5 - 2.2 mmol/L 10/17/2025 11:51 PM EST [facility] Plasma 10/17/2025 10:5 0 PM EST 10/17/2025 10:55 PM EST Aspen Parr MD LAB BLOOD ORDERABLES Final Resul t [facility] [address] * Fibrinogen (10/17/2025 10:50 PM EST) Fibrinogen 253 218 - 406 mg/dL 10/17/2025 11:06 PM EST [facility] Plasma 10/17/2025 10:5 0 PM EST 10/17/2025 10:55 PM EST Aspen Parr MD LAB BLOOD ORDERABLES Final Resul t Performing Organization Address [facility] Co de Phone Number [facility] [address] * (ABNORMAL) Protime-INR (10/17/2025 10:50 PM EST) Protime 25.2(H) 12.1 - 15.1 seconds 10/17/2025 11:06 PM EST [facility] INR 2.1(H) 0.9 - 1.1 10/17/2025 11:06 PM EST [facility] Comment: RECOMMENDED THERAPEUTIC RANGES USING INR : Stable oral anticoagulant therapy: 2.0 - 3.0 Mechanical prosthetic heart valve: 2.5 - 3.5 Recurrent acute myocardial infarction: 2.5 - 3.5 Plasma 10/17/2025 10:5 0 PM EST 10/17/2025 10:55 PM EST Aspen Parr MD LAB BLOOD ORDERABLES Final Resul t Performing Organization Address [facility] Co de Phone Number [facility] [address] * (ABNORMAL) Blood gas, arterial (10/17/2025 10:50 PM EST) O2 Sat, Arterial 100 10/17/2025 11:00 PM EST [facility] FIO2 80 fio2 10/17/2025 11:00 PM EST [facility] pH, Arterial 7.38 7.35 - 7.45 10/17/2025 11:00 PM EST [facility] pCO2, Arterial 41 35 - 45 mm Hg 10/17/2025 11:00 PM EST [facility] pO2, Arterial 216(H) 80 - 100 mm Hg 10/17/2025 11:00 PM EST [facility] HCO3, Arterial 24 22 - 26 mmol/L 10/17/2025 11:00 PM EST [facility] CO2 Content,Arteri al 26 23 - 27 mmol/L 10/17/2025 11:00 PM EST [facility] Base Excess, Arterial -0.8 -2.0 - 3.0 mmol/L 10/17/2025 11:00 PM EST [facility] %HBO2, Arterial 95.2 95.0 - 98.0 % 10/17/2025 11:00 PM EST [facility] Carboxyhemoglo bin, Arterial 3.3 % 10/17/2025 11:00 PM EST [facility] Comment: CARBOXYHEMOGLOBIN (CO) REFERENCE RANGES: Non-Smokers: <2 % Smokers: <8 % TOXIC: >20 % Methemoglobin, Arterial 1.6(H) 0.0 - 1.5 % 10/17/2025 11:00 PM EST [facility] Blood, Arterial 10/17/2025 1 0:50 PM EST 10/17/2025 10:55 PM EST Aspen Parr MD LAB BLOOD ORDERABLES Final Resul t Performing Organization Address [facility] de Phone Number [facility] [address] [facility]. [address] * Magnesium (10/17/2025 10:50 PM EST) Magnesium 1.8 1.5 - 2.5 mg/dL 10/18/2025 12:13 AM EST [facility] Plasma 10/17/2025 10:5 0 PM EST 10/17/2025 10:55 PM EST Aspen Parr MD LAB BLOOD ORDERABLES Final Resul t Performing Organization Address City/[facility] Co de Phone Number [facility] [address] [facility] * (ABNORMAL) Hepatic Function Panel (10/17/2025 10:50 PM EST) Total Bilirubin 4.5(H) 0.0 - 1.5 mg/dL 10/18/2025 12:13 AM EST [facility] Bilirubin, Direct 3.22(H) 0.00 - 0.40 mg/dL 10/18/2025 12:13 AM EST [facility] AST 3,332(H) 13 - 39 U/L 10/18/2025 12:13 AM EST [facility] ALT 1141(H) 7 - 52 U/L 10/18/2025 12:13 AM EST [facility] Alkaline Phosphatase 63 36 - 125 U/L 10/18/2025 12:13 AM EST [facility] Total Protein 4.0(L) 6.4 - 8.9 g/dL 10/18/2025 12:13 AM EST [facility] Albumin 2.2(L) 3.5 - 5.7 g/dL 10/18/2025 12:13 AM [facility] Bilirubin, Indirect 1.28(H) 0.00 - 1.10 mg/dL 10/18/2025 12:13 AM [facility] Plasma 10/17/2025 10:5 0 PM EST 10/17/2025 10:55 PM EST us Aspen Parr MD LAB BLOOD ORDERABLES Final Resul t [facility] [address] * (ABNORMAL) Renal Function Panel w/EGFR (10/17/2025 10:50 PM EST) Sodium 145 133 - 146 mmol/L 10/18/2025 12:13 AM [facility] Potassium 3.7 3.5 - 5.3 mmol/L 10/18/2025 12:13 AM [facility] Chloride 110 98 - 110 mmol/L 10/18/2025 12:13 AM [facility] CO2 27 21 - 33 mmol/L 10/18/2025 12:13 AM [facility] Comment:High lactate dehydro genase concentrations in patient samples may cause falsely increased bicarbonate results. If markedly elevated LDH is observed or suspected, please assess results in conjunction with patient`s clinical presentation. In cases of discrepant results, consider evaluating CO2 in with a blood gas order. Anion Gap 8 3 - 16 mmol/L 10/18/2025 12:13 AM [facility] BUN 17 7 - 25 mg/dL 10/18/2025 12:13 AM [facility] Creatinine 0.79 0.60 - 1.30 mg/dL 10/18/2025 12:13 AM [facility] Glucose 225(H) 70 - 100 mg/dL 10/18/2025 12:13 AM EST [facility] Calcium 8.2(L) 8.6 - 10.3 mg/dL 10/18/2025 12:13 AM EST [facility] Phosphorus 3.9 2.1 - 4.7 mg/dL 10/18/2025 12:13 AM EST [facility] Albumin 2.2(L) 3.5 - 5.7 g/dL 10/18/2025 12:13 AM EST [facility] Osmolality, Calculated 309(H) 278 - 305 mOsm/kg 10/18/2025 12:13 AM EST [facility] EGFR >90 10/18/2025 12:13 AM EST [facility] Comment: As of 2022, [...] MD LAB BLOOD ORDERABLES Final Resul t [facility] [address] [place] [address], [facility] * (ABNORMAL) CBC (10/17/2025 10:50 PM EST) WBC 5.8 3.8 - 10.8 10E3/uL 10/17/2025 11:03 PM EST [facility] RBC 2.93(L) 4.20 - 5.80 10E6/uL 10/17/2025 11:03 PM EST [facility] Hemoglobin 9.5(L) 13.2 - 17.1 g/dL 10/17/2025 11:03 PM EST [facility] Hematocrit 27.5(L) 38.5 - 50.0 % 10/17/2025 11:03 PM EST [facility] MCV 93.9 80.0 - 100.0 fL 10/17/2025 11:03 PM EST [facility] MCH 32.6 27.0 - 33.0 pg 10/17/2025 11:03 PM EST [facility] MCHC 34.7 32.0 - 36.0 g/dL 10/17/2025 11:03 PM EST [facility] RDW 18.1(H) 11.0 - 15.0 % 10/17/2025 11:03 PM EST [facility] Platelets 52(L) 140 - 400 10E3/uL 10/17/2025 11:03 PM EST [facility] MPV 7.1(L) 7.5 - 11.5 fL 10/17/2025 11:03 PM EST [facility] Whole Blood 10/17/2025 10:5 0 PM EST 10/17/2025 10:55 PM EST Aspen Parr MD LAB BLOOD ORDERABLES Final Resul t [facility] [address] * (ABNORMAL) POC Glucose Monitoring Device (10/17/2025 10:47 PM EST) POC Glucose Monitoring Device 234(H) 70 - 100 mg/dL 10/17/2025 10:48 PM EST [facility] Blood 10/17/2025 10:4 7 PM EST 10/17/2025 10:47 PM EST us Vani Winkler MD POINT OF CARE TEST ORDERABLE S Final Result [facility] [address] * POC Sample Type (10/17/2025 9:25 PM EST) POC Sample Type Arterial 10/17/2025 9:51 PM EST [facility] Blood, Arterial 10/17/2025 9 :25 PM EST 10/17/2025 9:51 PM EST us Vani Winkler MD POINT OF CARE TEST ORDERABLE S Final Result Performing Organization Address [facility] Co de Phone Number [facility] [address] * POC Anion Gap (10/17/2025 9:25 PM EST) POC Anion Gap, Arterial 9 3 - 16 mmol/L 10/17/2025 9:51 PM EST [facility] Blood, Arterial 10/17/2025 9 :25 PM EST 10/17/2025 9:51 PM EST us Vani Winkler MD POINT OF CARE TEST ORDERABLE S Final Result Performing Organization Address [facility] Co de Phone Number [facility] [address] * (ABNORMAL) POC Chloride (10/17/2025 9:25 PM EST) POC Chloride 111(H) 98 - 110 mmol/L 10/17/2025 9:51 PM EST [facility] Blood, Arterial 10/17/2025 9 :25 PM EST 10/17/2025 9:51 PM EST us Vani Winkler MD POINT OF CARE TEST ORDERABLE S Final Result [facility] [address] * (ABNORMAL) POC Hemoglobin (10/17/2025 9:25 PM EST) POC Hemoglobin 9.0(L) 14.0 - 18.0 g/dL 10/17/2025 9:51 PM EST [facility] Blood, Arterial 10/17/2025 9 :25 PM EST 10/17/2025 9:51 PM EST Vani Winkler MD POINT OF CARE TEST ORDERABLE S Final Result [facility] [address] * (ABNORMAL) POC hematocrit (10/17/2025 9:25 PM EST) Pathologist [facility] POC Hematocrit 26.0(L) 40 - 52 % 10/17/2025 9:51 PM EST [facility] Blood, Arterial 10/17/2025 9 :25 PM EST 10/17/2025 9:51 PM EST Vani Winkler MD POINT OF CARE TEST ORDERABLE S Final Result [facility] [address] [facility] * POC Lactate (10/17/2025 9:25 PM EST) Pathologist [facility] POC Lactate 1.50 0.50 - 2.20 mmol/L 10/17/2025 9:51 PM EST [facility] Blood, Arterial 10/17/2025 9 :25 PM EST 10/17/2025 9:51 PM EST Vani Winkler MD POINT OF CARE TEST ORDERABLE S Final Result [facility] [address] * (ABNORMAL) POC Glucose (10/17/2025 9:25 PM EST) POC Glucose, Arterial 227(H) 70 - 100 mg/dL 10/17/2025 9:51 PM EST [facility] Blood, Arterial 10/17/2025 9 :25 PM EST 10/17/2025 9:51 PM EST Vani Winkler MD POINT OF CARE TEST ORDERABLE S Final Result [facility] [address] [place] [address]. [address] * POC Ionized Calcium (10/17/2025 9:25 PM EST) Pathologist [facility] POC Ionized Calcium 4.90 4.50 - 5.30 mg/dL 10/17/2025 9:51 PM EST [facility] Blood, Arterial 10/17/2025 9 :25 PM EST 10/17/2025 9:51 PM EST us Vani Winkler MD POINT OF CARE TEST ORDERABLE S Final Result Performing Organization Address City/[facility]/ZIP Co de Phone Number [facility] [address] [place] [address]. [address] * POC Potassium (10/17/2025 9:25 PM EST) Pathologist [facility] POC Potassium 3.7 3.5 - 5.3 mmol/L 10/17/2025 9:51 PM EST [facility] Blood, Arterial 10/17/2025 9 :25 PM EST 10/17/2025 9:51 PM EST Vani Winkler MD POINT OF CARE TEST ORDERABLE S Final Result [facility] [address] [place] [address]. [address] * POC Sodium (10/17/2025 9:25 PM EST) Pathologist [facility] POC Sodium 142 136 - 146 mmol/L 10/17/2025 9:51 PM EST [facility] Blood, Arterial 10/17/2025 9 :25 PM EST 10/17/2025 9:51 PM EST Vani Winkler MD POINT OF CARE TEST ORDERABLE S Final Result Performing Organization Address City/[facility]/ZIP Co de Phone Number [facility] [address] [facility]. [address] * POC TCO2 (10/17/2025 9:25 PM EST) POC TCO2, Arterial 23 23 - 27 mmol/L 10/17/2025 9:51 PM EST [facility] Blood, Arterial 10/17/2025 9 :25 PM EST 10/17/2025 9:51 PM EST Vani Winkler MD POINT OF CARE TEST ORDERABLE S Final Result Performing Organization Address [facility] Co de Phone Number [facility] [address] [facility] * (ABNORMAL) POC O2 SAT (10/17/2025 9:25 PM EST) POC O2 Saturation, Arterial 99(H) 95 - 98 % 10/17/2025 9:51 PM EST [facility] Blood, Arterial 10/17/2025 9 :25 PM EST 10/17/2025 9:51 PM EST Vani Winkler MD POINT OF CARE TEST ORDERABLE S Final Result Performing Organization Address City/[facility]/ZIP Co de Phone Number [facility] [address] [facility] * (ABNORMAL) POC Base Excess (10/17/2025 9:25 PM EST) POC Base Excess, Arterial -3(L) -2 - 3 mmol/L 10/17/2025 9:51 PM EST [facility] Blood, Arterial 10/17/2025 9 :25 PM EST 10/17/2025 9:51 PM EST us Vani Winkler MD POINT OF CARE TEST ORDERABLE S Final Result Performing Organization Address City/[facility]/ZIP Co de Phone Number [facility] [address] [place] [address]. [address] * POC HCO3 (10/17/2025 9:25 PM EST) POC HCO3, Arterial 22 22 - 26 mmol/L 10/17/2025 9:51 PM EST [facility] Blood, Arterial 10/17/2025 9 :25 PM EST 10/17/2025 9:51 PM EST us Vani Winkler MD POINT OF CARE TEST ORDERABLE S Final Result Performing Organization Address [facility] de Phone Number [facility] [address] [facility] * (ABNORMAL) POC PO2 (10/17/2025 9:25 PM EST) POC pO2, Arterial 161(H) 80 - 100 mm Hg 10/17/2025 9:51 PM EST [facility] Blood, Arterial 10/17/2025 9 :25 PM EST 10/17/2025 9:51 PM EST us Vani Winkler MD POINT OF CARE TEST ORDERABLE S Final Result [facility] [address] [place] [address]. [address] * POC PCO2 (10/17/2025 9:25 PM EST) POC pCO2, Arterial 38 35 - 45 mm Hg 10/17/2025 9:51 PM EST [facility] Blood, Arterial 10/17/2025 9 :25 PM EST 10/17/2025 9:51 PM EST Vani Winkler MD POINT OF CARE TEST ORDERABLE S Final Result [facility] [address] * POC pH (10/17/2025 9:25 PM EST) POC pH, Arterial 7.37 7.35 - 7.45 10/17/2025 9:51 PM EST [facility] Blood, Arterial 10/17/2025 9 :25 PM EST 10/17/2025 9:51 PM EST Result [facility] Vani Winkler MD POINT OF CARE TEST ORDERABLE S Final Result Performing Organization Address [facility] Co de Phone Number [facility] [address] * (ABNORMAL) POC INR (10/17/2025 9:24 PM EST) Prothrombin Time INR, POC 2.3(H) 0.8 - 1.4 10/18/2025 12:08 AM EST [facility] Comment: Test results may vary using different testing platforms. Serial result monitoring should be performed using the same methodology. RECOMMENDED THERAPEUTIC RANGES USING INR : Stable oral anticoagulant therapy: 2.0 - 3.0 Mechanical prosthetic heart valve: 2.5 - 3.5 Recurrent acute myocardial infarction: 2.5 - 3.5 Blood 10/17/2025 9:24 PM EST 10/18/2025 12:07 AM EST Result [facility] Vani Winkler MD POINT OF CARE TEST ORDERABLE S Final Result Performing Organization Address City/[facility]/ZIP Co de Phone Number [facility] [address] * Transfuse Fresh Frozen Plasma (10/17/2025 9:17 PM EST) Result [facility] Shannan Salas MD NURSING TREATMENT ORDERABLES - BLOOD ADMIN Final Result * Transfuse Platelets (10/17/2025 9:01 PM EST) Result [facility] Slade Munoz MD NURSING TREATMENT ORDERABLES - B LOOD ADMIN Final Result * Transfuse Cryoprecipitate (10/17/2025 8:49 PM EST) Slade Munoz MD NURSING TREATMENT ORDERABLES - B LOOD ADMIN Final Result * Transfuse Cryoprecipitate (10/17/2025 8:46 PM EST) Slade Munoz MD NURSING TREATMENT ORDERABLES - B LOOD ADMIN Final Result * (ABNORMAL) TEG-Bypass/ECMO/Liver HN (Factor function, Platelet/Fibrin Clot Strength w/Clot Breakdown, Heparinase In All Channels) (10/17/2025 8:31 PM EST) [facility] Citrated Kaolin Reaction Time (TEGECMOLIVER) 9.7(H) 4.6 - 9.1 minutes 10/17/2025 10:13 PM EST [facility] Citrated Kaolin W/Heparinase Reaction Time (TEGECMOLIVER) 3.4(L) 4.3 - 8.3 minutes 10/17/2025 10:13 PM EST [facility] Citrated Kaolin Maximum Amplitude (TEGECMOLIVER) 45.4(L) 52.0 - 69.0 mm 10/17/2025 10:13 PM EST [facility] Citrated Functional Fibrinogen W/Heparinase Maximum Amplitude(TEGEC MOLIVER) 18.0 15.0 - 34.0 mm 10/17/2025 10:13 PM EST [facility] Citrated Rapid Teg W/Heparinase Maximum Amplitude (TEGECMOLIVER) 40.5(L) 53.0 - 69.0 mm 10/17/2025 10:13 PM EST [facility] Citrated Kaolin w/Heparinase Percent Lysis (TEGECMOLIVER) 0.0 0.0 - 3.2 % 10/17/2025 10:13 PM EST [facility] Whole Blood (Citrate) 10/17/2025 8:31 PM EST 10/17/2025 8:40 PM EST Oskar Torres MD LAB BLOOD ORDERABLES Final Re sult [facility] [address] * (ABNORMAL) Fibrinogen (10/17/2025 8:31 PM EST) Pathologist [facility] Fibrinogen 157(L) 218 - 406 mg/dL 10/17/2025 9:00 PM EST [facility] Plasma 10/17/2025 8:31 PM EST 10/17/2025 8:40 PM EST Oskar Torres MD LAB BLOOD ORDERABLES Final Re sult [facility] [address] [place] [facility]. [address] * POC Sample Type (10/17/2025 8:22 PM EST) Pathologist [facility] POC Sample Type Arterial 10/17/2025 8:24 PM EST [facility] Blood, Arterial 10/17/2025 8 :22 PM EST 10/17/2025 8:24 PM EST Vani Winkler MD POINT OF CARE TEST ORDERABLE S Final Result Performing Organization Address City/[facility]/ZIP Co de Phone Number [facility] [address] [facility] * POC Anion Gap (10/17/2025 8:22 PM EST) Pathologist [facility] POC Anion Gap, Arterial 11 3 - 16 mmol/L 10/17/2025 8:24 PM EST [facility] Blood, Arterial 10/17/2025 8 :22 PM EST 10/17/2025 8:24 PM EST Vani Winkler MD POINT OF CARE TEST ORDERABLE S Final Result [facility] [address] [facility] * POC Chloride (10/17/2025 8:22 PM EST) Pathologist [facility] POC Chloride 108 98 - 110 mmol/L 10/17/2025 8:24 PM EST [facility] Blood, Arterial 10/17/2025 8 :22 PM EST 10/17/2025 8:24 PM EST Vani Winkler MD POINT OF CARE TEST ORDERABLE S Final Result [facility] [address] * (ABNORMAL) POC Hemoglobin (10/17/2025 8:22 PM EST) POC Hemoglobin 9.5(L) 14.0 - 18.0 g/dL 10/17/2025 8:24 PM EST [facility] Blood, Arterial 10/17/2025 8 :22 PM EST 10/17/2025 8:24 PM EST Vani Winkler MD POINT OF CARE TEST ORDERABLE S Final Result Performing Organization Address City/[facility]/ZIP Co de Phone Number [facility] [address] [facility]. [address] * (ABNORMAL) POC hematocrit (10/17/2025 8:22 PM EST) Pathologist [facility] POC Hematocrit 28.0(L) 40 - 52 % 10/17/2025 8:24 PM EST [facility] Blood, Arterial 10/17/2025 8 :22 PM EST 10/17/2025 8:24 PM EST Vani Winkler MD POINT OF CARE TEST ORDERABLE S Final Result [facility] [address] [facility] * POC Lactate (10/17/2025 8:22 PM EST) Pathologist [facility] POC Lactate 1.62 0.50 - 2.20 mmol/L 10/17/2025 8:24 PM EST [facility] Blood, Arterial 10/17/2025 8 :22 PM EST 10/17/2025 8:24 PM EST Vani Winkler MD POINT OF CARE TEST ORDERABLE S Final Result Performing Organization Address City/[facility]/ZIP Co de Phone Number [facility] [address] [facility] * (ABNORMAL) POC Glucose (10/17/2025 8:22 PM EST) POC Glucose, Arterial 218(H) 70 - 100 mg/dL 10/17/2025 8:24 PM EST [facility] Blood, Arterial 10/17/2025 8 :22 PM EST 10/17/2025 8:24 PM EST Vani Winkler MD POINT OF CARE TEST ORDERABLE S Final Result Performing Organization Address [facility] Co de Phone Number [facility] [address] [place] [facility]. [address] * POC Ionized Calcium (10/17/2025 8:22 PM EST) POC Ionized Calcium 4.80 4.50 - 5.30 mg/dL 10/17/2025 8:24 PM EST [facility] Blood, Arterial 10/17/2025 8 :22 PM EST 10/17/2025 8:24 PM EST Vani Winkler MD POINT OF CARE TEST ORDERABLE S Final Result [facility] [address] [facility]. [address] * POC Potassium (10/17/2025 8:22 PM EST) POC Potassium 3.8 3.5 - 5.3 mmol/L 10/17/2025 8:24 PM EST [facility] Blood, Arterial 10/17/2025 8 :22 PM EST 10/17/2025 8:24 PM EST Vani Winkler MD POINT OF CARE TEST ORDERABLE S Final Result [facility] [address] * POC Sodium (10/17/2025 8:22 PM EST) POC Sodium 143 136 - 146 mmol/L 10/17/2025 8:24 PM EST [facility] Blood, Arterial 10/17/2025 8 :22 PM EST 10/17/2025 8:24 PM EST us Vani Winkler MD POINT OF CARE TEST ORDERABLE S Final Result Performing Organization Address [facility]/ZIP Co de Phone Number [facility] [address] [facility]. [address] * POC TCO2 (10/17/2025 8:22 PM EST) POC TCO2, Arterial 25 23 - 27 mmol/L 10/17/2025 8:24 PM EST [facility] Blood, Arterial 10/17/2025 8 :22 PM EST 10/17/2025 8:24 PM EST Vani Winkler MD POINT OF CARE TEST ORDERABLE S Final Result Performing Organization Address City/[facility]/ZIP Co de Phone Number [facility] [address] [facility]. [address] * (ABNORMAL) POC O2 SAT (10/17/2025 8:22 PM EST) POC O2 Saturation, Arterial 99(H) 95 - 98 % 10/17/2025 8:24 PM EST [facility] Blood, Arterial 10/17/2025 8 :22 PM EST 10/17/2025 8:24 PM EST Vani Winkler MD POINT OF CARE TEST ORDERABLE S Final Result [facility] [address] * POC Base Excess (10/17/2025 8:22 PM EST) POC Base Excess, Arterial -1 -2 - 3 mmol/L 10/17/2025 8:24 PM EST [facility] Blood, Arterial 10/17/2025 8 :22 PM EST 10/17/2025 8:24 PM EST Vani Winkler MD POINT OF CARE TEST ORDERABLE S Final Result [facility] [address] * POC HCO3 (10/17/2025 8:22 PM EST) POC HCO3, Arterial 24 22 - 26 mmol/L 10/17/2025 8:24 PM EST [facility] Blood, Arterial 10/17/2025 8 :22 PM EST 10/17/2025 8:24 PM EST Vani Winkler MD POINT OF CARE TEST ORDERABLE S Final Result [facility] [address] * (ABNORMAL) POC PO2 (10/17/2025 8:22 PM EST) POC pO2, Arterial 131(H) 80 - 100 mm Hg 10/17/2025 8:24 PM EST [facility] Blood, Arterial 10/17/2025 8 :22 PM EST 10/17/2025 8:24 PM EST Vani Winkler MD POINT OF CARE TEST ORDERABLE S Final Result [facility] [address] * POC PCO2 (10/17/2025 8:22 PM EST) POC pCO2, Arterial 41 35 - 45 mm Hg 10/17/2025 8:24 PM EST [facility] Blood, Arterial 10/17/2025 8 :22 PM EST 10/17/2025 8:24 PM EST Result [facility] Vani Winkler MD POINT OF CARE TEST ORDERABLE S Final Result [facility] [address] * POC pH (10/17/2025 8:22 PM EST) POC pH, Arterial 7.37 7.35 - 7.45 10/17/2025 8:24 PM EST [facility] Blood, Arterial 10/17/2025 8 :22 PM EST 10/17/2025 8:24 PM EST Result [facility] Vani Winkler MD POINT OF CARE TEST ORDERABLE S Final Result Performing Organization Address [facility] Co de Phone Number [facility] [address] [facility]. [address] * (ABNORMAL) POC INR (10/17/2025 8:21 PM EST) Prothrombin Time INR, POC 2.9(H) 0.8 - 1.4 10/18/2025 12:08 AM EST [facility] Comment: Test results may vary [...] ORDERABLE S Final Result Performing Organization Address City/[facility]/ZIP Co de Phone Number [facility] [address] * Transfuse Fresh Frozen Plasma (10/17/2025 [...] Sample Type Arterial 10/17/2025 7:30 PM EST [facility] Blood, Arterial 10/17/2025 7 :26 PM EST 10/17/2025 7:30 PM EST Result Neto Winkler MD POINT OF CARE TEST ORDERABLE S Final Result [facility] [address] [facility] * POC Anion Gap (10/17/2025 7:26 PM EST) POC Anion Gap, Arterial 11 3 - 16 mmol/L 10/17/2025 7:30 PM EST [facility] Blood, Arterial 10/17/2025 7 :26 PM EST 10/17/2025 7:30 PM EST Result Neto Winkler MD POINT OF CARE TEST ORDERABLE S Final Result [facility] [address] * POC Chloride (10/17/2025 7:26 PM EST) POC Chloride 109 98 - 110 mmol/L 10/17/2025 7:30 PM EST [facility] Blood, Arterial 10/17/2025 7 :26 PM EST 10/17/2025 7:30 PM EST Vani Winkler MD POINT OF CARE TEST ORDERABLE S Final Result [facility] [address] [place] [address]. [address] * (ABNORMAL) POC Hemoglobin (10/17/2025 7:26 PM EST) [facility] POC Hemoglobin 8.6(L) 14.0 - 18.0 g/dL 10/17/2025 7:30 PM EST [facility] Blood, Arterial 10/17/2025 7 :26 PM EST 10/17/2025 7:30 PM EST Vani Winkler MD POINT OF CARE TEST ORDERABLE S Final Result Performing Organization Address City/[facility]/ZIP Co de Phone Number [facility] [address] [place] [address]. [address] * (ABNORMAL) POC hematocrit (10/17/2025 7:26 PM EST) [facility] POC Hematocrit 25.0(L) 40 - 52 % 10/17/2025 7:30 PM EST [facility] Blood, Arterial 10/17/2025 7 :26 PM EST 10/17/2025 7:30 PM EST Vani Winkler MD POINT OF CARE TEST ORDERABLE S Final Result [facility] [address] [facility] * POC Lactate (10/17/2025 7:26 PM EST) Pathologist [facility] POC Lactate 2.16 0.50 - 2.20 mmol/L 10/17/2025 7:30 PM EST [facility] Blood, Arterial 10/17/2025 7 :26 PM EST 10/17/2025 7:30 PM EST Vani Winkler MD POINT OF CARE TEST ORDERABLE S Final Result [facility] [address] [place] [facility]. [address] * (ABNORMAL) POC Glucose (10/17/2025 7:26 PM EST) POC Glucose, Arterial 207(H) 70 - 100 mg/dL 10/17/2025 7:30 PM EST [facility] Blood, Arterial 10/17/2025 7 :26 PM EST 10/17/2025 7:30 PM EST Vani Winkler MD POINT OF CARE TEST ORDERABLE S Final Result Performing Organization Address City/[facility]/ZIP Co de Phone Number [facility] [address] [facility]. [address] * (ABNORMAL) POC Ionized Calcium (10/17/2025 7:26 PM EST) POC Ionized Calcium 5.40(H) 4.50 - 5.30 mg/dL 10/17/2025 7:30 PM EST [facility] Blood, Arterial 10/17/2025 7 :26 PM EST 10/17/2025 7:30 PM EST Vani Winkler MD POINT OF CARE TEST ORDERABLE S Final Result [facility] [address] [facility] * POC Potassium (10/17/2025 7:26 PM EST) POC Potassium 3.9 3.5 - 5.3 mmol/L 10/17/2025 7:30 PM EST [facility] Blood, Arterial 10/17/2025 7 :26 PM EST 10/17/2025 7:30 PM EST Vani Winkler MD POINT OF CARE TEST ORDERABLE S Final Result Performing Organization Address City/[facility]/ZIP Co de Phone Number [facility] [address] * POC Sodium (10/17/2025 7:26 PM EST) POC Sodium 143 136 - 146 mmol/L 10/17/2025 7:30 PM EST [facility] Blood, Arterial 10/17/2025 7 :26 PM EST 10/17/2025 7:30 PM EST Vani Winkler MD POINT OF CARE TEST ORDERABLE S Final Result Performing Organization Address [facility] Co de Phone Number [facility] [address] [facility] * POC TCO2 (10/17/2025 7:26 PM EST) POC TCO2, Arterial 24 23 - 27 mmol/L 10/17/2025 7:30 PM EST [facility] Blood, Arterial 10/17/2025 7 :26 PM EST 10/17/2025 7:30 PM EST Vani Winkler MD POINT OF CARE TEST ORDERABLE S Final Result Performing Organization Address City/[facility] Co de Phone Number [facility] [address] [facility] * (ABNORMAL) POC O2 SAT (10/17/2025 7:26 PM EST) POC O2 Saturation, Arterial 99(H) 95 - 98 % 10/17/2025 7:30 PM EST [facility] Blood, Arterial 10/17/2025 7 :26 PM EST 10/17/2025 7:30 PM EST us Vani Winkler MD POINT OF CARE TEST ORDERABLE S Final Result [facility] [address] [facility] * POC Base Excess (10/17/2025 7:26 PM EST) POC Base Excess, Arterial -2 -2 - 3 mmol/L 10/17/2025 7:30 PM EST [facility] Blood, Arterial 10/17/2025 7 :26 PM EST 10/17/2025 7:30 PM EST us Vani Winkler MD POINT OF CARE TEST ORDERABLE S Final Result Performing Organization Address City/[facility]/ZIP Co de Phone Number [facility] [address] [place] [facility]. [address] * POC HCO3 (10/17/2025 7:26 PM EST) POC HCO3, Arterial 23 22 - 26 mmol/L 10/17/2025 7:30 PM EST [facility] Blood, Arterial 10/17/2025 7 :26 PM EST 10/17/2025 7:30 PM EST us Vani Winkler MD POINT OF CARE TEST ORDERABLE S Final Result Performing Organization Address City/[facility]/ZIP Co de Phone Number [facility] [address] [facility] * (ABNORMAL) POC PO2 (10/17/2025 7:26 PM EST) POC pO2, Arterial 156(H) 80 - 100 mm Hg 10/17/2025 7:30 PM EST [facility] Blood, Arterial 10/17/2025 7 :26 PM EST 10/17/2025 7:30 PM EST us Vani Winkler MD POINT OF CARE TEST ORDERABLE S Final Result [facility] [address] * POC PCO2 (10/17/2025 7:26 PM EST) POC pCO2, Arterial 40 35 - 45 mm Hg 10/17/2025 7:30 PM EST [facility] Blood, Arterial 10/17/2025 7 :26 PM EST 10/17/2025 7:30 PM EST Vani Winkler MD POINT OF CARE TEST ORDERABLE S Final Result [facility] [address] * POC pH (10/17/2025 7:26 PM EST) POC pH, Arterial 7.37 7.35 - 7.45 10/17/2025 7:30 PM EST [facility] Blood, Arterial 10/17/2025 7 :26 PM EST 10/17/2025 7:30 PM EST Vani Winkler MD POINT OF CARE TEST ORDERABLE S Final Result Performing Organization Address City/[facility]/ZIP Co de Phone Number [facility] [address] [place] [facility]. [address] * (ABNORMAL) POC INR (10/17/2025 7:25 PM EST) Prothrombin Time INR, POC 5.9(HH) 0.8 - 1.4 10/18/2025 12:07 AM EST [facility] Comment: Test results may vary using different testing platforms. Serial result monitoring should be performed using the same methodology. RECOMMENDED THERAPEUTIC RANGES USING INR : Stable oral anticoagulant therapy: 2.0 - 3.0 Mechanical prosthetic heart valve: 2.5 - 3.5 Recurrent acute myocardial infarction: 2.5 - 3.5 Blood 10/17/2025 7:25 PM EST 10/18/2025 12:07 AM EST us Vani Winkler MD POINT OF CARE TEST ORDERABLE S Final Result [facility] [address] [place] [address], [facility] * Transfuse Platelets (10/17/2025 7:03 PM EST) Slade Munoz MD NURSING TREATMENT ORDERABLES - B LOOD ADMIN Final Result * (ABNORMAL) TEG-Bypass/ECMO/Liver HN (Factor function, Platelet/Fibrin Clot Strength w/Clot Breakdown, Heparinase In All Channels) (10/17/2025 6:39 PM EST) Pathologist [facility] Citrated Kaolin Reaction Time (TEGECMOLIVER) 7.1 4.6 - 9.1 minutes 10/17/2025 8:07 PM EST [facility] Citrated Kaolin W/Heparinase Reaction Time (TEGECMOLIVER) 2.5(L) 4.3 - 8.3 minutes 10/17/2025 8:07 PM EST [facility] Citrated Kaolin Maximum Amplitude (TEGECMOLIVER) 41.6(L) 52.0 - 69.0 mm 10/17/2025 8:07 PM EST [facility] Citrated Functional Fibrinogen W/Heparinase Maximum Amplitude(TEGEC MOLIVER) 20.9 15.0 - 34.0 mm 10/17/2025 8:07 PM EST [facility] Citrated Rapid Teg W/Heparinase Maximum Amplitude (TEGECMOLIVER) 30.9(L) 53.0 - 69.0 mm 10/17/2025 8:07 PM EST [facility] Citrated Kaolin w/Heparinase Percent Lysis (TEGECMOLIVER) 0.0 0.0 - 3.2 % 10/17/2025 8:07 PM EST [facility] Whole Blood (Citrate) 10/17/2025 6:39 PM EST 10/17/2025 6:45 PM EST Shannan Salas MD LAB BLOOD ORDERABLES Final R esult [facility] [address] * (ABNORMAL) CBC (10/17/2025 6:39 PM EST) WBC 4.8 3.8 - 10.8 10E3/uL 10/17/2025 6:54 PM EST [facility] RBC 3.19(L) 4.20 - 5.80 10E6/uL 10/17/2025 6:54 PM EST [facility] Hemoglobin 10.3(L) 13.2 - 17.1 g/dL 10/17/2025 6:54 PM EST [facility] Hematocrit 30.2(L) 38.5 - 50.0 % 10/17/2025 6:54 PM EST [facility] MCV 94.8 80.0 - 100.0 fL 10/17/2025 6:54 PM EST [facility] MCH 32.3 27.0 - 33.0 pg 10/17/2025 6:54 PM EST [facility] MCHC 34.1 32.0 - 36.0 g/dL 10/17/2025 6:54 PM EST [facility] RDW 17.8(H) 11.0 - 15.0 % 10/17/2025 6:54 PM EST [facility] Platelets 47(L) 140 - 400 10E3/uL 10/17/2025 6:54 PM EST [facility] Comment:CNV MPV 7.7 7.5 - 11.5 fL 10/17/2025 6:54 PM EST [facility] Whole Blood 10/17/2025 6:39 PM EST 10/17/2025 6:45 PM EST us Shannan Salas MD LAB BLOOD ORDERABLES Final R esult [facility] [address] * (ABNORMAL) Protime-INR (10/17/2025 6:39 PM EST) Protime 69.5(HH) 12.1 - 15.1 seconds 10/17/2025 7:30 PM EST [facility] Comment:The critical result was called to, and read back by, licensed caregiver ROSALIND HAWK RN, AT 1930 INR 7.5(HH) 0.9 - 1.1 10/17/2025 7:30 PM EST [facility] Comment: RECOMMENDED THERAPEUTIC RANGES USING INR : Stable oral anticoagulant therapy: 2.0 - 3.0 Mechanical prosthetic heart valve: 2.5 - 3.5 Recurrent acute myocardial infarction: 2.5 - 3.5 The critical result was called to, and read back by, licensed caregiver ROSALIND HAWK RN, AT 1930 Plasma 10/17/2025 6:39 PM EST 10/17/2025 6:45 PM EST Result [facility] Shannan Salas MD LAB BLOOD ORDERABLES Final R esult [facility] [address] * (ABNORMAL) Fibrinogen (10/17/2025 6:39 PM EST) Pathologist [facility] Fibrinogen 159(L) 218 - 406 mg/dL 10/17/2025 7:04 PM EST [facility] Plasma 10/17/2025 6:39 PM EST 10/17/2025 6:45 PM EST Result [facility] Shannan Salas MD LAB BLOOD ORDERABLES Final R esult [facility] [address] [facility] * Transfuse Cryoprecipitate (10/17/2025 6:31 PM EST) Result [facility] Slade Munoz MD NURSING TREATMENT ORDERABLES - B LOOD ADMIN Final Result * POC Sample Type (10/17/2025 6:23 PM EST) Pathologist [facility] POC Sample Type Arterial 10/17/2025 6:25 PM EST [facility] Blood, Arterial 10/17/2025 6 :23 PM EST 10/17/2025 6:25 PM EST Result [facility] Vani Winkler MD POINT OF CARE TEST ORDERABLE S Final Result [facility] [address] * POC Anion Gap (10/17/2025 6:23 PM EST) POC Anion Gap, Arterial 13 3 - 16 mmol/L 10/17/2025 6:25 PM EST [facility] Blood, Arterial 10/17/2025 6 :23 PM EST 10/17/2025 6:25 PM EST Vani Winkler MD POINT OF CARE TEST ORDERABLE S Final Result Performing Organization Address [facility]/ZIP Co de Phone Number [facility] [address] * POC Chloride (10/17/2025 6:23 PM EST) POC Chloride 110 98 - 110 mmol/L 10/17/2025 6:25 PM EST [facility] Blood, Arterial 10/17/2025 6 :23 PM EST 10/17/2025 6:25 PM EST Vani Winkler MD POINT OF CARE TEST ORDERABLE S Final Result Performing Organization Address [facility]/ZIP Co de Phone Number [facility] [address] * (ABNORMAL) POC Hemoglobin (10/17/2025 6:23 PM EST) POC Hemoglobin 9.8(L) 14.0 - 18.0 g/dL 10/17/2025 6:25 PM EST [facility] Blood, Arterial 10/17/2025 6 :23 PM EST 10/17/2025 6:25 PM EST Vani Winkler MD POINT OF CARE TEST ORDERABLE S Final Result [facility] [address] * (ABNORMAL) POC hematocrit (10/17/2025 6:23 PM EST) POC Hematocrit 29.0(L) 40 - 52 % 10/17/2025 6:25 PM EST [facility] Blood, Arterial 10/17/2025 6 :23 PM EST 10/17/2025 6:25 PM EST Vani Winkler MD POINT OF CARE TEST ORDERABLE S Final Result [facility] [address] [facility] * (ABNORMAL) POC Lactate (10/17/2025 6:23 PM EST) Pathologist [facility] POC Lactate 3.26(H) 0.50 - 2.20 mmol/L 10/17/2025 6:25 PM EST [facility] Blood, Arterial 10/17/2025 6 :23 PM EST 10/17/2025 6:25 PM EST Vani Winkler MD POINT OF CARE TEST ORDERABLE S Final Result [facility] [address] [facility] * (ABNORMAL) POC Glucose (10/17/2025 6:23 PM EST) POC Glucose, Arterial 170(H) 70 - 100 mg/dL 10/17/2025 6:25 PM EST [facility] Blood, Arterial 10/17/2025 6 :23 PM EST 10/17/2025 6:25 PM EST Vani Winkler MD POINT OF CARE TEST ORDERABLE S Final Result [facility] [address] [facility] * (ABNORMAL) POC Ionized Calcium (10/17/2025 6:23 PM EST) POC Ionized Calcium 6.00(H) 4.50 - 5.30 mg/dL 10/17/2025 6:25 PM EST [facility] Blood, Arterial 10/17/2025 6 :23 PM EST 10/17/2025 6:25 PM EST Vani Winkler MD POINT OF CARE TEST ORDERABLE S Final Result [facility] [address] [place] [address]. [address] * POC Potassium (10/17/2025 6:23 PM EST) [facility] POC Potassium 3.8 3.5 - 5.3 mmol/L 10/17/2025 6:25 PM EST [facility] Blood, Arterial 10/17/2025 6 :23 PM EST 10/17/2025 6:25 PM EST Vani Winkler MD POINT OF CARE TEST ORDERABLE S Final Result Performing Organization Address [facility] Co de Phone Number [facility] [address] [place] [address]. [address] * POC Sodium (10/17/2025 6:23 PM EST) [facility] POC Sodium 142 136 - 146 mmol/L 10/17/2025 6:25 PM EST [facility] Blood, Arterial 10/17/2025 6 :23 PM EST 10/17/2025 6:25 PM EST Vani Winkler MD POINT OF CARE TEST ORDERABLE S Final Result Performing Organization Address City/[facility] Co de Phone Number [facility] [address] [place] [address]. [address] * (ABNORMAL) POC TCO2 (10/17/2025 6:23 PM EST) Pathologist [facility] POC TCO2, Arterial 20(L) 23 - 27 mmol/L 10/17/2025 6:25 PM EST [facility] Blood, Arterial 10/17/2025 6 :23 PM EST 10/17/2025 6:25 PM EST Vani Winkler MD POINT OF CARE TEST ORDERABLE S Final Result [facility] [address] [facility] [address] * POC O2 SAT (10/17/2025 6:23 PM EST) POC O2 Saturation, Arterial 95 95 - 98 % 10/17/2025 6:25 PM EST [facility] Blood, Arterial 10/17/2025 6 :23 PM EST 10/17/2025 6:25 PM EST Vani Winkler MD POINT OF CARE TEST ORDERABLE S Final Result [facility] [address] [place] [facility]. [address] * (ABNORMAL) POC Base Excess (10/17/2025 6:23 PM EST) POC Base Excess, Arterial -6(L) -2 - 3 mmol/L 10/17/2025 6:25 PM EST [facility] Blood, Arterial 10/17/2025 6 :23 PM EST 10/17/2025 6:25 PM EST Vani Winkler MD POINT OF CARE TEST ORDERABLE S Final Result [facility] [address] [facility] * (ABNORMAL) POC HCO3 (10/17/2025 6:23 PM EST) POC HCO3, Arterial 19(L) 22 - 26 mmol/L 10/17/2025 6:25 PM EST [facility] Blood, Arterial 10/17/2025 6 :23 PM EST 10/17/2025 6:25 PM EST Vani Winkler MD POINT OF CARE TEST ORDERABLE S Final Result [facility] [address] [facility] * POC PO2 (10/17/2025 6:23 PM EST) POC pO2, Arterial 80 80 - 100 mm Hg 10/17/2025 6:25 PM EST [facility] Blood, Arterial 10/17/2025 6 :23 PM EST 10/17/2025 6:25 PM EST Vani Winkler MD POINT OF CARE TEST ORDERABLE S Final Result Performing Organization Address City/[facility] Co de Phone Number [facility] [address] [facility] * POC PCO2 (10/17/2025 6:23 PM EST) POC pCO2, Arterial 36 35 - 45 mm Hg 10/17/2025 6:25 PM EST [facility] Blood, Arterial 10/17/2025 6 :23 PM EST 10/17/2025 6:25 PM EST Vani Winkler MD POINT OF CARE TEST ORDERABLE S Final Result Performing Organization Address City/[facility] Co de Phone Number [facility] [address] [facility] * (ABNORMAL) POC pH (10/17/2025 6:23 PM EST) POC pH, Arterial 7.33(L) 7.35 - 7.45 10/17/2025 6:25 PM EST [facility] Blood, Arterial 10/17/2025 6 :23 PM EST 10/17/2025 6:25 PM EST Vani Winkler MD POINT OF CARE TEST ORDERABLE S Final Result [facility] [address] [facility] * (ABNORMAL) POC INR (10/17/2025 6:21 PM EST) Prothrombin Time INR, POC 6.4(HH) 0.8 - 1.4 10/18/2025 12:07 AM EST [facility] Comment: Test results may vary [...] OF CARE TEST ORDERABLE S Final Result [facility] [address] [facility]. [address] * Transfuse Cryoprecipitate (10/17/2025 6:18 PM EST) Result [facility] Slade Munoz MD NURSING TREATMENT ORDERABLES - B LOOD ADMIN Final Result * POC Sample Type (10/17/2025 5:42 PM EST) POC Sample Type Arterial 10/17/2025 6:21 PM EST [facility] Blood, Arterial 10/17/2025 5 :42 PM EST 10/17/2025 6:21 PM EST Vani Winkler MD POINT OF CARE TEST ORDERABLE S Final Result [facility] [address] * POC Anion Gap (10/17/2025 5:42 PM EST) POC Anion Gap, Arterial 10 3 - 16 mmol/L 10/17/2025 6:21 PM EST [facility] Blood, Arterial 10/17/2025 5 :42 PM EST 10/17/2025 6:21 PM EST Vani Winkler MD POINT OF CARE TEST ORDERABLE S Final Result [facility] [address] [place] [address]. [address] * (ABNORMAL) POC Chloride (10/17/2025 5:42 PM EST) POC Chloride 111(H) 98 - 110 mmol/L 10/17/2025 6:21 PM EST [facility] Blood, Arterial 10/17/2025 5 :42 PM EST 10/17/2025 6:21 PM EST Vani Winkler MD POINT OF CARE TEST ORDERABLE S Final Result Performing Organization Address City/[facility]/ZIP Co de Phone Number [facility] [address] [facility]. [address] * (ABNORMAL) POC Hemoglobin (10/17/2025 5:42 PM EST) POC Hemoglobin 7.9(L) 14.0 - 18.0 g/dL 10/17/2025 6:21 PM EST [facility] Blood, Arterial 10/17/2025 5 :42 PM EST 10/17/2025 6:21 PM EST Vani Winkler MD POINT OF CARE TEST ORDERABLE S Final Result [facility] [address] [place] [address]. [address] * (ABNORMAL) POC hematocrit (10/17/2025 5:42 PM EST) POC Hematocrit 23.0(L) 40 - 52 % 10/17/2025 6:21 PM EST [facility] Blood, Arterial 10/17/2025 5 :42 PM EST 10/17/2025 6:21 PM EST Vani Winkler MD POINT OF CARE TEST ORDERABLE S Final Result [facility] [address] [facility] * (ABNORMAL) POC Lactate (10/17/2025 5:42 PM EST) POC Lactate 2.53(H) 0.50 - 2.20 mmol/L 10/17/2025 6:21 PM EST [facility] Blood, Arterial 10/17/2025 5 :42 PM EST 10/17/2025 6:21 PM EST Vani Winkler MD POINT OF CARE TEST ORDERABLE S Final Result Performing Organization Address City/[facility]/ZIP Co de Phone Number [facility] [address] [facility] * POC Glucose (10/17/2025 5:42 PM EST) POC Glucose, Arterial 77 70 - 100 mg/dL 10/17/2025 6:21 PM EST [facility] Blood, Arterial 10/17/2025 5 :42 PM EST 10/17/2025 6:21 PM EST Vani Winkler MD POINT OF CARE TEST ORDERABLE S Final Result [facility] [address] [facility] * (ABNORMAL) POC Ionized Calcium (10/17/2025 5:42 PM EST) POC Ionized Calcium 5.90(H) 4.50 - 5.30 mg/dL 10/17/2025 6:21 PM EST [facility] Blood, Arterial 10/17/2025 5 :42 PM EST 10/17/2025 6:21 PM EST Vani Winkler MD POINT OF CARE TEST ORDERABLE S Final Result [facility] [address] [place] [address]. [address] * POC Potassium (10/17/2025 5:42 PM EST) POC Potassium 3.7 3.5 - 5.3 mmol/L 10/17/2025 6:21 PM EST [facility] Blood, Arterial 10/17/2025 5 :42 PM EST 10/17/2025 6:21 PM EST us Vani Winkler MD POINT OF CARE TEST ORDERABLE S Final Result Performing Organization Address City/[facility] Co de Phone Number [facility] [address] [place] [address]. [address] * POC Sodium (10/17/2025 5:42 PM EST) POC Sodium 141 136 - 146 mmol/L 10/17/2025 6:21 PM EST [facility] Blood, Arterial 10/17/2025 5 :42 PM EST 10/17/2025 6:21 PM EST Vani Winkler MD POINT OF CARE TEST ORDERABLE S Final Result Performing Organization Address City/[facility]/ZIP Co de Phone Number [facility] [address] [place] [address]. [address] * (ABNORMAL) POC TCO2 (10/17/2025 5:42 PM EST) POC TCO2, Arterial 21(L) 23 - 27 mmol/L 10/17/2025 6:21 PM EST [facility] Blood, Arterial 10/17/2025 5 :42 PM EST 10/17/2025 6:21 PM EST us Vani Winkler MD POINT OF CARE TEST ORDERABLE S Final Result [facility] [address] * (ABNORMAL) POC O2 SAT (10/17/2025 5:42 PM EST) POC O2 Saturation, Arterial 99(H) 95 - 98 % 10/17/2025 6:21 PM EST [facility] Blood, Arterial 10/17/2025 5 :42 PM EST 10/17/2025 6:21 PM EST Vani Winkler MD POINT OF CARE TEST ORDERABLE S Final Result [facility] [address] * (ABNORMAL) POC Base Excess (10/17/2025 5:42 PM EST) POC Base Excess, Arterial -4(L) -2 - 3 mmol/L 10/17/2025 6:21 PM EST [facility] Blood, Arterial 10/17/2025 5 :42 PM EST 10/17/2025 6:21 PM EST Vani Winkler MD POINT OF CARE TEST ORDERABLE S Final Result [facility] [address] * (ABNORMAL) POC HCO3 (10/17/2025 5:42 PM EST) POC HCO3, Arterial 20(L) 22 - 26 mmol/L 10/17/2025 6:21 PM EST [facility] Blood, Arterial 10/17/2025 5 :42 PM EST 10/17/2025 6:21 PM EST Vani Winkler MD POINT OF CARE TEST ORDERABLE S Final Result [facility] [address] * (ABNORMAL) POC PO2 (10/17/2025 5:42 PM EST) POC pO2, Arterial 159(H) 80 - 100 mm Hg 10/17/2025 6:21 PM EST [facility] Blood, Arterial 10/17/2025 5 :42 PM EST 10/17/2025 6:21 PM EST Vani Winkler MD POINT OF CARE TEST ORDERABLE S Final Result [facility] [address] * (ABNORMAL) POC PCO2 (10/17/2025 5:42 PM EST) POC pCO2, Arterial 33(L) 35 - 45 mm Hg 10/17/2025 6:21 PM EST [facility] Blood, Arterial 10/17/2025 5 :42 PM EST 10/17/2025 6:21 PM EST Vani Winkler MD POINT OF CARE TEST ORDERABLE S Final Result Performing Organization Address City/[facility]/ZIP Co de Phone Number [facility] [address] * POC pH (10/17/2025 5:42 PM EST) POC pH, Arterial 7.40 7.35 - 7.45 10/17/2025 6:21 PM EST [facility] Blood, Arterial 10/17/2025 5 :42 PM EST 10/17/2025 6:21 PM EST Vani Winkler MD POINT OF CARE TEST ORDERABLE S Final Result [facility] [address] * (ABNORMAL) POC INR (10/17/2025 5:37 [...] OF CARE TEST ORDERABLE S Final Result [facility] [address] * Transfuse RBC (10/17/2025 5:34 PM [...] [facility] - 10/17/2025 12:00 AM EST CASE: [id number] PATIENT: DAVID SERARNO Clinical History: transplant liver Pre-Operative Diagnosis: end stage liver disease Post-Operative Diagnosis: same Specimen(s) Submitted: A. Barrow liver and gallbladder; B. Right lobe post perfusion liver bx; C. Left lobe post perfusion liver bx CPT Code(s): 89782 X 2; 12783 X 1; 49129 X 7 Additional Information: FINAL DIAGNOSIS: Liver and gall bladder, tunica-biloxi, total hepatectomy with cholecystectomy: Liver: -Cirrhosis, mild [...] with the patient's name David Serrano and tunica-biloxi liver and gallbladder is a 782 gram, [...] no discrete masses or lesions are identified. Clinical Dermatologist sections are submitted in cassettes [id number] as follows: A1: Clinical Dermatologist gallbladder. A2: Hilar margins, en face. A3-A5: Clinical Dermatologist right lobe. A6-A8: Clinical Dermatologist left lobe with liver written on the side of the cassette in A8. (LAISHA Miranda/) B. Received in formalin, labeled with the patient's name David Serrano and right lobe post perfusion liver biopsy is a 1.6 cm in length x 0.1 cm in diameter red-brown tissue core, which is entirely submitted between blue biopsy sponges in cassette [id number] B1. (LAISHA Miranda/vc) C. Received in formalin, labeled with the patient's name David Serrano and left lobe post perfusion liver biopsy is a 1.3 cm in length x 0.1 cm in diameter red-brown fragmented tissue core, which is entirely submitted between blue biopsy sponges in cassette [id number] C1. (LAISHA Miranda/vc) Microscopic Description: Sixteen HE [...] Pathologist signing this report is located at [facility], [address] [place] [address], [facility] [phone], CLIA ID: [id number] us Leticia Lomeli MD PATHOLOGY/CYTOLOGY ORDERABLES Final Result Performing Organization Address City/[facility] Co de Phone Number [facility] * Transfuse RBC (10/17/2025 5:19 PM EST) Slade Munoz MD NURSING TREATMENT ORDERABLES - B LOOD ADMIN Final Result * POC Sample Type (10/17/2025 5:00 PM EST) POC Sample Type Arterial 10/17/2025 5:03 PM EST [facility] Blood, Arterial 10/17/2025 5 :00 PM EST 10/17/2025 5:03 PM EST us Vani Winkler MD POINT OF CARE TEST ORDERABLE S Final Result [facility] [address] [place] [address] * POC Anion Gap (10/17/2025 5:00 PM EST) POC Anion Gap, Arterial 11 3 - 16 mmol/L 10/17/2025 5:03 PM EST [facility] Blood, Arterial 10/17/2025 5 :00 PM EST 10/17/2025 5:03 PM EST Vani Winkler MD POINT OF CARE TEST ORDERABLE S Final Result [facility] [address] [facility]. [address] * POC Chloride (10/17/2025 5:00 PM EST) Pathologist [facility] POC Chloride 109 98 - 110 mmol/L 10/17/2025 5:03 PM EST [facility] Blood, Arterial 10/17/2025 5 :00 PM EST 10/17/2025 5:03 PM EST us Vani Winkler MD POINT OF CARE TEST ORDERABLE S Final Result [facility] [address] [facility] * (ABNORMAL) POC Hemoglobin (10/17/2025 5:00 PM EST) Pathologist [facility] POC Hemoglobin 7.9(L) 14.0 - 18.0 g/dL 10/17/2025 5:03 PM EST [facility] Blood, Arterial 10/17/2025 5 :00 PM EST 10/17/2025 5:03 PM EST Vani Winkler MD POINT OF CARE TEST ORDERABLE S Final Result [facility] [address] * (ABNORMAL) POC hematocrit (10/17/2025 5:00 PM EST) Pathologist [facility] POC Hematocrit 23.0(L) 40 - 52 % 10/17/2025 5:03 PM EST [facility] Blood, Arterial 10/17/2025 5 :00 PM EST 10/17/2025 5:03 PM EST Vani Winkler MD POINT OF CARE TEST ORDERABLE S Final Result [facility] [address] * (ABNORMAL) POC Lactate (10/17/2025 5:00 PM EST) POC Lactate 2.68(H) 0.50 - 2.20 mmol/L 10/17/2025 5:03 PM EST [facility] Blood, Arterial 10/17/2025 5 :00 PM EST 10/17/2025 5:03 PM EST us Vani Winkler MD POINT OF CARE TEST ORDERABLE S Final Result [facility] [address] [facility] * POC Glucose (10/17/2025 5:00 PM EST) POC Glucose, Arterial 96 70 - 100 mg/dL 10/17/2025 5:03 PM EST [facility] Blood, Arterial 10/17/2025 5 :00 PM EST 10/17/2025 5:03 PM EST us Vani Winkler MD POINT OF CARE TEST ORDERABLE S Final Result [facility] [address] * POC Ionized Calcium (10/17/2025 5:00 PM EST) POC Ionized Calcium 4.60 4.50 - 5.30 mg/dL 10/17/2025 5:03 PM EST [facility] Blood, Arterial 10/17/2025 5 :00 PM EST 10/17/2025 5:03 PM EST us Vani Winkler MD POINT OF CARE TEST ORDERABLE S Final Result [facility] [address] [facility] * POC Potassium (10/17/2025 5:00 PM EST) POC Potassium 3.7 3.5 - 5.3 mmol/L 10/17/2025 5:03 PM EST [facility] Blood, Arterial 10/17/2025 5 :00 PM EST 10/17/2025 5:03 PM EST Vani Winkler MD POINT OF CARE TEST ORDERABLE S Final Result Performing Organization Address City/[facility]/ZIP Co de Phone Number [facility] [address] [facility] * POC Sodium (10/17/2025 5:00 PM EST) POC Sodium 143 136 - 146 mmol/L 10/17/2025 5:03 PM EST [facility] Blood, Arterial 10/17/2025 5 :00 PM EST 10/17/2025 5:03 PM EST Vani Winkler MD POINT OF CARE TEST ORDERABLE S Final Result [facility] [address] [facility] * POC TCO2 (10/17/2025 5:00 PM EST) POC TCO2, Arterial 24 23 - 27 mmol/L 10/17/2025 5:03 PM EST [facility] Blood, Arterial 10/17/2025 5 :00 PM EST 10/17/2025 5:03 PM EST us Vani Winkler MD POINT OF CARE TEST ORDERABLE S Final Result [facility] [address] * (ABNORMAL) POC O2 SAT (10/17/2025 5:00 PM EST) POC O2 Saturation, Arterial 100(H) 95 - 98 % 10/17/2025 5:03 PM EST [facility] Blood, Arterial 10/17/2025 5 :00 PM EST 10/17/2025 5:03 PM EST us Vani Winkler MD POINT OF CARE TEST ORDERABLE S Final Result Performing Organization Address City/[facility]/ZIP Co de Phone Number [facility] [address] * POC Base Excess (10/17/2025 5:00 PM EST) POC Base Excess, Arterial -2 -2 - 3 mmol/L 10/17/2025 5:03 PM EST [facility] Blood, Arterial 10/17/2025 5 :00 PM EST 10/17/2025 5:03 PM EST us Vani Winkler MD POINT OF CARE TEST ORDERABLE S Final Result Performing Organization Address City/[facility]/ZIP Co de Phone Number [facility] [address] * POC HCO3 (10/17/2025 5:00 PM EST) POC HCO3, Arterial 23 22 - 26 mmol/L 10/17/2025 5:03 PM EST [facility] Blood, Arterial 10/17/2025 5 :00 PM EST 10/17/2025 5:03 PM EST us Vani Winkler MD POINT OF CARE TEST ORDERABLE S Final Result [facility] [address] * (ABNORMAL) POC PO2 (10/17/2025 5:00 PM EST) POC pO2, Arterial 200(H) 80 - 100 mm Hg 10/17/2025 5:03 PM EST [facility] Blood, Arterial 10/17/2025 5 :00 PM EST 10/17/2025 5:03 PM EST Vani Winkler MD POINT OF CARE TEST ORDERABLE S Final Result [facility] [address] * POC PCO2 (10/17/2025 5:00 PM EST) POC pCO2, Arterial 38 35 - 45 mm Hg 10/17/2025 5:03 PM EST [facility] Blood, Arterial 10/17/2025 5 :00 PM EST 10/17/2025 5:03 PM EST Vani Winkler MD POINT OF CARE TEST ORDERABLE S Final Result [facility] [address] [facility]. [address] * POC pH (10/17/2025 5:00 PM EST) POC pH, Arterial 7.39 7.35 - 7.45 10/17/2025 5:03 PM EST [facility] Blood, Arterial 10/17/2025 5 :00 PM EST 10/17/2025 5:03 PM EST Vani Winkler MD POINT OF CARE TEST ORDERABLE S Final Result [facility] [address] * (ABNORMAL) POC INR (10/17/2025 4:59 PM EST) Prothrombin Time INR, POC 1.7(H) 0.8 - 1.4 10/18/2025 12:07 AM EST [facility] Comment: Test results may vary [...] OF CARE TEST ORDERABLE S Final Result [facility] [address] [place] [address], [facility] * (ABNORMAL) TEG-Bypass/ECMO/Liver HN (Factor function, Platelet/Fibrin Clot Strength w/Clot Breakdown, Heparinase In All Channels) (10/17/2025 4:56 PM EST) Citrated Kaolin Reaction Time (TEGECMOLIVER) 4.7 4.6 - 9.1 minutes 10/17/2025 6:20 PM EST [facility] Citrated Kaolin W/Heparinase Reaction Time (TEGECMOLIVER) 4.7 4.3 - 8.3 minutes 10/17/2025 6:20 PM EST [facility] Citrated Kaolin Maximum Amplitude (TEGECMOLIVER) 42.4(L) 52.0 - 69.0 mm 10/17/2025 6:20 PM EST [facility] Citrated Functional Fibrinogen W/Heparinase Maximum Amplitude(TEGEC MOLIVER) 6.6(L) 15.0 - 34.0 mm 10/17/2025 6:20 PM EST [facility] Citrated Rapid Teg W/Heparinase Maximum Amplitude (TEGECMOLIVER) 39.8(L) 53.0 - 69.0 mm 10/17/2025 6:20 PM EST [facility] Citrated Kaolin w/Heparinase Percent Lysis (TEGECMOLIVER) 0.0 0.0 - 3.2 % 10/17/2025 6:20 PM EST [facility] Whole Blood (Citrate) 10/17/2025 4:56 PM EST 10/17/2025 5:06 PM EST Result [facility] Slade Munoz MD LAB BLOOD ORDERABLES Final Resul t Performing Organization Address [facility] de Phone Number [facility] [address] [facility] * (ABNORMAL) Protime-INR (10/17/2025 4:56 PM EST) Protime 26.4(H) 12.1 - 15.1 seconds 10/17/2025 5:31 PM EST [facility] INR 2.3(H) 0.9 - 1.1 10/17/2025 5:31 PM EST [facility] Comment: RECOMMENDED THERAPEUTIC RANGES USING INR : Stable oral anticoagulant therapy: 2.0 - 3.0 Mechanical prosthetic heart valve: 2.5 - 3.5 Recurrent acute myocardial infarction: 2.5 - 3.5 Plasma 10/17/2025 4:56 PM EST 10/17/2025 5:06 PM EST Result [facility] Slade Munoz MD LAB BLOOD ORDERABLES Final Resul t Performing Organization Address [facility] de Phone Number [facility] [address] [facility] * (ABNORMAL) Fibrinogen (10/17/2025 4:56 PM EST) Fibrinogen 137(L) 218 - 406 mg/dL 10/17/2025 5:36 PM EST [facility] Plasma 10/17/2025 4:56 PM EST 10/17/2025 5:06 PM EST Result [facility] Slade Munoz MD LAB BLOOD ORDERABLES Final Resul t Performing Organization Address [facility] de Phone Number [facility] [address] * (ABNORMAL) CBC (10/17/2025 4:56 PM EST) WBC 3.9 3.8 - 10.8 10E3/uL 10/17/2025 8:25 PM EST [facility] RBC 2.67(L) 4.20 - 5.80 10E6/uL 10/17/2025 8:25 PM EST [facility] Hemoglobin 9.2(L) 13.2 - 17.1 g/dL 10/17/2025 8:25 PM EST [facility] Hematocrit 26.1(L) 38.5 - 50.0 % 10/17/2025 8:25 PM EST [facility] MCV 98.0 80.0 - 100.0 fL 10/17/2025 8:25 PM EST [facility] MCH 34.5(H) 27.0 - 33.0 pg 10/17/2025 8:25 PM EST [facility] MCHC 35.3 32.0 - 36.0 g/dL 10/17/2025 8:25 PM EST [facility] RDW 17.9(H) 11.0 - 15.0 % 10/17/2025 8:25 PM EST [facility] Platelets 64(L) 140 - 400 10E3/uL 10/17/2025 8:25 PM EST [facility] MPV 8.2 7.5 - 11.5 fL 10/17/2025 8:25 PM EST [facility] Whole Blood 10/17/2025 4:56 PM EST 10/17/2025 5:19 PM EST us Slade Munoz MD LAB BLOOD ORDERABLES Final Resul t [facility] [address] [place] [address], [facility] * (ABNORMAL) APTT, No Anticoagulant (10/17/2025 4:56 PM EST) aPTT 55.7(H) 25.5 - 35.0 seconds 10/17/2025 5:32 PM EST [facility] Plasma 10/17/2025 4:56 PM EST 10/17/2025 5:06 PM EST Slade Munoz MD LAB BLOOD ORDERABLES Final Resul t Performing Organization Address City/[facility]/ZIP Co de Phone Number [facility] [address] * Transfuse Cryoprecipitate (10/17/2025 4:18 PM EST) us Slade Munoz MD NURSING TREATMENT ORDERABLES - B LOOD ADMIN Final Result * Transfuse Cryoprecipitate Transfusion Rate: Per dept routine (10/17/2025 4:18 PM EST) Slade Munoz MD NURSING TREATMENT ORDERABLES - B LOOD ADMIN Final Result Performing Organization Address City/[facility] Co de Phone Number EXTERNAL * Transfuse Cryoprecipitate Transfusion Rate: Per dept routine, 1 Units (10/17/2025 4:18 PM EST) Slade Munoz MD NURSING TREATMENT ORDERABLES - B LOOD ADMIN Final Result Performing Organization Address City/[facility]/ZIP Co de Phone Number EXTERNAL * Transfuse Platelets (10/17/2025 4:06 PM EST) Slade Munoz MD NURSING TREATMENT ORDERABLES - B LOOD ADMIN Final Result * POC Sample Type (10/17/2025 3:59 PM EST) Pathologist [facility] POC Sample Type Arterial 10/17/2025 4:01 PM EST [facility] Blood, Arterial 10/17/2025 3 :59 PM EST 10/17/2025 4:01 PM EST Vani Winkler MD POINT OF CARE TEST ORDERABLE S Final Result [facility] [address] [facility] * POC Anion Gap (10/17/2025 3:59 PM EST) POC Anion Gap, Arterial 10 3 - 16 mmol/L 10/17/2025 4:01 PM EST [facility] Blood, Arterial 10/17/2025 3 :59 PM EST 10/17/2025 4:01 PM EST Vani Winkler MD POINT OF CARE TEST ORDERABLE S Final Result Performing Organization Address City/[facility]/ZIP Co de Phone Number [facility] [address] [facility] * (ABNORMAL) POC Chloride (10/17/2025 3:59 PM EST) POC Chloride 111(H) 98 - 110 mmol/L 10/17/2025 4:01 PM EST [facility] Blood, Arterial 10/17/2025 3 :59 PM EST 10/17/2025 4:01 PM EST Vani Winkler MD POINT OF CARE TEST ORDERABLE S Final Result Performing Organization Address [facility] Co de Phone Number [facility] [address] [facility] * (ABNORMAL) POC Hemoglobin (10/17/2025 3:59 PM EST) POC Hemoglobin 9.7(L) 14.0 - 18.0 g/dL 10/17/2025 4:01 PM EST [facility] Blood, Arterial 10/17/2025 3 :59 PM EST 10/17/2025 4:01 PM EST Vani Winkler MD POINT OF CARE TEST ORDERABLE S Final Result Performing Organization Address City/[facility]/ZIP Co de Phone Number [facility] [address] [facility] * (ABNORMAL) POC hematocrit (10/17/2025 3:59 PM EST) POC Hematocrit 29.0(L) 40 - 52 % 10/17/2025 4:01 PM EST [facility] Blood, Arterial 10/17/2025 3 :59 PM EST 10/17/2025 4:01 PM EST us Vani Winkler MD POINT OF CARE TEST ORDERABLE S Final Result [facility] [address] * POC Lactate (10/17/2025 3:59 PM EST) POC Lactate 1.77 0.50 - 2.20 mmol/L 10/17/2025 4:01 PM EST [facility] Blood, Arterial 10/17/2025 3 :59 PM EST 10/17/2025 4:01 PM EST us Vani Winkler MD POINT OF CARE TEST ORDERABLE S Final Result Performing Organization Address [facility] Co de Phone Number [facility] [address] [facility] * POC Glucose (10/17/2025 3:59 PM EST) POC Glucose, Arterial 81 70 - 100 mg/dL 10/17/2025 4:01 PM EST [facility] Blood, Arterial 10/17/2025 3 :59 PM EST 10/17/2025 4:01 PM EST us Vani Winkler MD POINT OF CARE TEST ORDERABLE S Final Result Performing Organization Address City/[facility]/ZIP Co de Phone Number [facility] [address] [facility] * POC Ionized Calcium (10/17/2025 3:59 PM EST) POC Ionized Calcium 4.90 4.50 - 5.30 mg/dL 10/17/2025 4:01 PM EST [facility] Blood, Arterial 10/17/2025 3 :59 PM EST 10/17/2025 4:01 PM EST us Vani Winkler MD POINT OF CARE TEST ORDERABLE S Final Result [facility] [address] * POC Potassium (10/17/2025 3:59 PM EST) POC Potassium 3.7 3.5 - 5.3 mmol/L 10/17/2025 4:01 PM EST [facility] Blood, Arterial 10/17/2025 3 :59 PM EST 10/17/2025 4:01 PM EST Vani Winkler MD POINT OF CARE TEST ORDERABLE S Final Result [facility] [address] * POC Sodium (10/17/2025 3:59 PM EST) POC Sodium 145 136 - 146 mmol/L 10/17/2025 4:01 PM EST [facility] Blood, Arterial 10/17/2025 3 :59 PM EST 10/17/2025 4:01 PM EST Vani Winkler MD POINT OF CARE TEST ORDERABLE S Final Result [facility] [address] * POC TCO2 (10/17/2025 3:59 PM EST) POC TCO2, Arterial 26 23 - 27 mmol/L 10/17/2025 4:01 PM EST [facility] Blood, Arterial 10/17/2025 3 :59 PM EST 10/17/2025 4:01 PM EST Vani Winkler MD POINT OF CARE TEST ORDERABLE S Final Result [facility] [address] * (ABNORMAL) POC O2 SAT (10/17/2025 3:59 PM EST) POC O2 Saturation, Arterial 100(H) 95 - 98 % 10/17/2025 4:01 PM EST [facility] Blood, Arterial 10/17/2025 3 :59 PM EST 10/17/2025 4:01 PM EST Vani Winkler MD POINT OF CARE TEST ORDERABLE S Final Result [facility] [address] [place] [address]. [address] * POC Base Excess (10/17/2025 3:59 PM EST) POC Base Excess, Arterial -1 -2 - 3 mmol/L 10/17/2025 4:01 PM EST [facility] Blood, Arterial 10/17/2025 3 :59 PM EST 10/17/2025 4:01 PM EST Vani Winkler MD POINT OF CARE TEST ORDERABLE S Final Result Performing Organization Address City/[facility] Co de Phone Number [facility] [address] [facility] * POC HCO3 (10/17/2025 3:59 PM EST) POC HCO3, Arterial 24 22 - 26 mmol/L 10/17/2025 4:01 PM EST [facility] Blood, Arterial 10/17/2025 3 :59 PM EST 10/17/2025 4:01 PM EST Vani Winkler MD POINT OF CARE TEST ORDERABLE S Final Result Performing Organization Address City/[facility] Co de Phone Number [facility] [address] [place] [address]. [address] * (ABNORMAL) POC PO2 (10/17/2025 3:59 PM EST) POC pO2, Arterial 213(H) 80 - 100 mm Hg 10/17/2025 4:01 PM EST [facility] Blood, Arterial 10/17/2025 3 :59 PM EST 10/17/2025 4:01 PM EST Vani Winkler MD POINT OF CARE TEST ORDERABLE S Final Result Performing Organization Address [place]/[facility] [facility]/ZIP Co de Phone Number [facility] [address] * POC PCO2 (10/17/2025 3:59 PM EST) POC pCO2, Arterial 45 35 - 45 mm Hg 10/17/2025 4:01 PM EST [facility] Blood, Arterial 10/17/2025 3 :59 PM EST 10/17/2025 4:01 PM EST Vani Winkler MD POINT OF CARE TEST ORDERABLE S Final Result Performing Organization Address [facility] Co de Phone Number [facility] [address] * (ABNORMAL) POC pH (10/17/2025 3:59 PM EST) POC pH, Arterial 7.34(L) 7.35 - 7.45 10/17/2025 4:01 PM EST [facility] Blood, Arterial 10/17/2025 3 :59 PM EST 10/17/2025 4:01 PM EST Vani Winkler MD POINT OF CARE TEST ORDERABLE S Final Result Performing Organization Address City/[facility]/ZIP Co de Phone Number [facility] [address] * (ABNORMAL) POC INR (10/17/2025 3:58 PM EST) Prothrombin Time INR, POC 2.8(H) 0.8 - 1.4 10/18/2025 12:07 AM EST [facility] Comment: Test results may vary [...] OF CARE TEST ORDERABLE S Final Result [facility] [address] [place] [address], [facility] * Transfuse RBC (10/17/2025 3:23 PM EST) us Slade Munoz MD NURSING TREATMENT ORDERABLES - B LOOD ADMIN Final Result * Transfuse RBC (10/17/2025 3:15 PM EST) Slade Munoz MD NURSING TREATMENT ORDERABLES - B LOOD ADMIN Final Result * (ABNORMAL) TEG-Bypass/ECMO/Liver HN (Factor function, Platelet/Fibrin Clot Strength w/Clot Breakdown, Heparinase In All Channels) (10/17/2025 2:55 PM EST) [facility] Citrated Kaolin Reaction Time (TEGECMOLIVER) 5.1 4.6 - 9.1 minutes 10/17/2025 4:23 PM EST [facility] Citrated Kaolin W/Heparinase Reaction Time (TEGECMOLIVER) 5.2 4.3 - 8.3 minutes 10/17/2025 4:23 PM EST [facility] Citrated Kaolin Maximum Amplitude (TEGECMOLIVER) <40.0(L) 52.0 - 69.0 mm 10/17/2025 4:23 PM EST [facility] Citrated Functional Fibrinogen W/Heparinase Maximum Amplitude(TEGEC MOLIVER) <6.0(L) 15.0 - 34.0 mm 10/17/2025 4:23 PM EST [facility] Citrated Rapid Teg W/Heparinase Maximum Amplitude (TEGECMOLIVER) 32.8(L) 53.0 - 69.0 mm 10/17/2025 4:23 PM EST [facility] Citrated Kaolin w/Heparinase Percent Lysis (TEGECMOLIVER) 0.0 0.0 - 3.2 % 10/17/2025 4:23 PM EST [facility] Whole Blood (Citrate) 10/17/2025 2:55 PM EST 10/17/2025 3:05 PM EST Slade Munoz MD LAB BLOOD ORDERABLES Final Resul t [facility] [address] [place], [place] [address] * (ABNORMAL) CBC (10/17/2025 2:55 PM EST) WBC 4.4 3.8 - 10.8 10E3/uL 10/17/2025 3:20 PM EST [facility] RBC 2.90(L) 4.20 - 5.80 10E6/uL 10/17/2025 3:20 PM EST [facility] Hemoglobin 10.0(L) 13.2 - 17.1 g/dL 10/17/2025 3:20 PM EST [facility] Hematocrit 28.6(L) 38.5 - 50.0 % 10/17/2025 3:20 PM EST [facility] MCV 98.7 80.0 - 100.0 fL 10/17/2025 3:20 PM EST [facility] MCH 34.4(H) 27.0 - 33.0 pg 10/17/2025 3:20 PM EST [facility] MCHC 34.8 32.0 - 36.0 g/dL 10/17/2025 3:20 PM EST [facility] RDW 17.0(H) 11.0 - 15.0 % 10/17/2025 3:20 PM EST [facility] Platelets 53(L) 140 - 400 10E3/uL 10/17/2025 3:20 PM EST [facility] MPV 7.6 7.5 - 11.5 fL 10/17/2025 3:20 PM EST [facility] Whole Blood 10/17/2025 2:55 PM EST 10/17/2025 3:06 PM EST us Slade Alexander MD LAB BLOOD ORDERABLES Final Resul t Performing Organization Address City/[facility]/ZIP Co de Phone Number [facility] [address] * (ABNORMAL) Fibrinogen (10/17/2025 2:55 PM EST) Fibrinogen 85(LL) 218 - 406 mg/dL 10/17/2025 3:46 PM EST [facility] Comment:The critical result was called to, and read back by, licensed caregiver CAMI GALEANO MD, AT 1545 Plasma 10/17/2025 2:55 PM EST 10/17/2025 3:06 PM EST us Slade Munoz MD LAB BLOOD ORDERABLES Final Resul t Performing Organization Address [facility] Co de Phone Number [facility] [address] * (ABNORMAL) Protime-INR (10/17/2025 2:55 PM EST) Pathologist [facility] Protime 26.5(H) 12.1 - 15.1 seconds 10/17/2025 3:30 PM EST [facility] INR 2.3(H) 0.9 - 1.1 10/17/2025 3:30 PM EST [facility] Comment: RECOMMENDED THERAPEUTIC RANGES USING INR : Stable oral anticoagulant therapy: 2.0 - 3.0 Mechanical prosthetic heart valve: 2.5 - 3.5 Recurrent acute myocardial infarction: 2.5 - 3.5 Plasma 10/17/2025 2:55 PM EST 10/17/2025 3:06 PM EST us Slade Munoz MD LAB BLOOD ORDERABLES Final Resul t Performing Organization Address City/[facility] Co de Phone Number [facility] [address] * POC Sample Type (10/17/2025 2:54 PM EST) Pathologist [facility] POC Sample Type Arterial 10/17/2025 3:55 PM EST [facility] Blood, Arterial 10/17/2025 2 :54 PM EST 10/17/2025 3:55 PM EST Vani Winkler MD POINT OF CARE TEST ORDERABLE S Final Result [facility] [address] [place] [address]. [address] * POC Anion Gap (10/17/2025 2:54 PM EST) POC Anion Gap, Arterial 10 3 - 16 mmol/L 10/17/2025 3:55 PM EST [facility] Blood, Arterial 10/17/2025 2 :54 PM EST 10/17/2025 3:55 PM EST Vani Winkler MD POINT OF CARE TEST ORDERABLE S Final Result Performing Organization Address City/[facility] Co de Phone Number [facility] [address] [facility] * (ABNORMAL) POC Chloride (10/17/2025 2:54 PM EST) POC Chloride 112(H) 98 - 110 mmol/L 10/17/2025 3:55 PM EST [facility] Blood, Arterial 10/17/2025 2 :54 PM EST 10/17/2025 3:55 PM EST Vani Winkler MD POINT OF CARE TEST ORDERABLE S Final Result [facility] [address] [place] [address]. [address] * (ABNORMAL) POC Hemoglobin (10/17/2025 2:54 PM EST) POC Hemoglobin 8.7(L) 14.0 - 18.0 g/dL 10/17/2025 3:55 PM EST [facility] Blood, Arterial 10/17/2025 2 :54 PM EST 10/17/2025 3:55 PM EST Vani Winkler MD POINT OF CARE TEST ORDERABLE S Final Result [facility] [address] * (ABNORMAL) POC hematocrit (10/17/2025 2:54 PM EST) POC Hematocrit 26.0(L) 40 - 52 % 10/17/2025 3:55 PM EST [facility] Blood, Arterial 10/17/2025 2 :54 PM EST 10/17/2025 3:55 PM EST us Vani Winkler MD POINT OF CARE TEST ORDERABLE S Final Result Performing Organization Address City/[facility]/ZIP Co de Phone Number [facility] [address] [facility] * POC Lactate (10/17/2025 2:54 PM EST) POC Lactate 1.23 0.50 - 2.20 mmol/L 10/17/2025 3:55 PM EST [facility] Blood, Arterial 10/17/2025 2 :54 PM EST 10/17/2025 3:55 PM EST Vani Winkler MD POINT OF CARE TEST ORDERABLE S Final Result [facility] [address] [address] [address] * POC Glucose (10/17/2025 2:54 PM EST) POC Glucose, Arterial 74 70 - 100 mg/dL 10/17/2025 3:55 PM EST [facility] Blood, Arterial 10/17/2025 2 :54 PM EST 10/17/2025 3:55 PM EST Vani Winkler MD POINT OF CARE TEST ORDERABLE S Final Result [facility] [address] * POC Ionized Calcium (10/17/2025 2:54 PM EST) POC Ionized Calcium 4.70 4.50 - 5.30 mg/dL 10/17/2025 3:55 PM EST [facility] Blood, Arterial 10/17/2025 2 :54 PM EST 10/17/2025 3:55 PM EST Vani Winkler MD POINT OF CARE TEST ORDERABLE S Final Result Performing Organization Address City/[facility] Co de Phone Number [facility] [address] * (ABNORMAL) POC Potassium (10/17/2025 2:54 PM EST) POC Potassium 3.2(L) 3.5 - 5.3 mmol/L 10/17/2025 3:55 PM EST [facility] Blood, Arterial 10/17/2025 2 :54 PM EST 10/17/2025 3:55 PM EST Vani Winkler MD POINT OF CARE TEST ORDERABLE S Final Result Performing Organization Address City/[facility]/ZIP Co de Phone Number [facility] [address] * POC Sodium (10/17/2025 2:54 PM EST) POC Sodium 145 136 - 146 mmol/L 10/17/2025 3:55 PM EST [facility] Blood, Arterial 10/17/2025 2 :54 PM EST 10/17/2025 3:55 PM EST Vani Winkler MD POINT OF CARE TEST ORDERABLE S Final Result [facility] [address] * POC TCO2 (10/17/2025 2:54 PM EST) POC TCO2, Arterial 24 23 - 27 mmol/L 10/17/2025 3:55 PM EST [facility] Blood, Arterial 10/17/2025 2 :54 PM EST 10/17/2025 3:55 PM EST Vani Winkler MD POINT OF CARE TEST ORDERABLE S Final Result [facility] [address] * (ABNORMAL) POC O2 SAT (10/17/2025 2:54 PM EST) POC O2 Saturation, Arterial 100(H) 95 - 98 % 10/17/2025 3:55 PM EST [facility] Blood, Arterial 10/17/2025 2 :54 PM EST 10/17/2025 3:55 PM EST Vani Winkler MD POINT OF CARE TEST ORDERABLE S Final Result [facility] [address] [facility] * POC Base Excess (10/17/2025 2:54 PM EST) POC Base Excess, Arterial -2 -2 - 3 mmol/L 10/17/2025 3:55 PM EST [facility] Blood, Arterial 10/17/2025 2 :54 PM EST 10/17/2025 3:55 PM EST Vani Winkler MD POINT OF CARE TEST ORDERABLE S Final Result [facility] [address] * POC HCO3 (10/17/2025 2:54 PM EST) POC HCO3, Arterial 23 22 - 26 mmol/L 10/17/2025 3:55 PM EST [facility] Blood, Arterial 10/17/2025 2 :54 PM EST 10/17/2025 3:55 PM EST Vani Winkler MD POINT OF CARE TEST ORDERABLE S Final Result [facility] [address] * (ABNORMAL) POC PO2 (10/17/2025 2:54 PM EST) POC pO2, Arterial 179(H) 80 - 100 mm Hg 10/17/2025 3:55 PM EST [facility] Blood, Arterial 10/17/2025 2 :54 PM EST 10/17/2025 3:55 PM EST Vani Winkler MD POINT OF CARE TEST ORDERABLE S Final Result Performing Organization Address City/[facility]/ZIP Co de Phone Number [facility] [address] [facility] * POC PCO2 (10/17/2025 2:54 PM EST) POC pCO2, Arterial 40 35 - 45 mm Hg 10/17/2025 3:55 PM EST [facility] Blood, Arterial 10/17/2025 2 :54 PM EST 10/17/2025 3:55 PM EST Vani Winkler MD POINT OF CARE TEST ORDERABLE S Final Result [facility] [address] [facility] * POC pH (10/17/2025 2:54 PM EST) POC pH, Arterial 7.37 7.35 - 7.45 10/17/2025 3:55 PM EST [facility] Blood, Arterial 10/17/2025 2 :54 PM EST 10/17/2025 3:55 PM EST Vani Winkler MD POINT OF CARE TEST ORDERABLE S Final Result [facility] [address] * (ABNORMAL) POC INR (10/17/2025 2:53 [...] ORDERABLE S Final Result Performing Organization Address City/[facility]/ZIP Co de Phone Number [facility] [address] * Routine Culture plus Stain (Surgical Swab) (10/17/2025 2:50 PM EST) Gram Stain Result Rare Polymorphonuclear Leukocytes Seen [facility] Gram Stain Result No Organisms Seen; [facility] Culture Result No Growth After 3 Days [facility] Surgical Swab PERITONEAL FLUID / Unknown 10/17/2025 2:50 PM EST Comment:1. Ascites-anaerobic , aerobic, and fungal Narrative [facility] - 10/20/2025 11:09 AM EST 1. Ascites-anaerobic, aerobic, and fungal 1. Ascites-anaerobic, aerobic, and fungal Vani Winkler MD MICROBIOLOGY - GENERAL ORDER MARYA Final Result [facility] [address] * Anaerobic culture (Surgical Swab) (10/17/2025 2:50 PM EST) Culture Result No Anaerobes Isolated in 5 Days [facility] Surgical Swab PERITONEAL FLUID / Unknown 10/17/2025 2:50 PM EST Comment:1. Ascites-anaerobic , aerobic, and fungal Narrative [facility] - 10/22/2025 11:32 AM EST 1. Ascites-anaerobic, aerobic, and fungal 1. Ascites-anaerobic, aerobic, and fungal us Vani Winkler MD MICROBIOLOGY - GENERAL ORDER MARYA Final Result [facility] [address] * (ABNORMAL) TEG-Standard Global Hemostasis (Rapid TEG with Heparin Effect, Contains a Baseline TEG) (10/17/2025 10:19 AM EST) Citrated Kaolin Reaction Time (TEGHEPARINASE) 7.2 4.6 - 9.1 minutes 10/17/2025 11:27 AM EST [facility] Citrated Rapid Teg Maximum Amplitude (TEGHEPARINASE) <40.0(L) 52.0 - 70.0 mm 10/17/2025 11:27 AM EST [facility] Citrated Functional Fibrinogen Maximum Amplitude (TEGHEPARINASE) 5.8(L) 15.0 - 32.0 mm 10/17/2025 11:27 AM EST [facility] Citrated Kaolin W/Heparinase Reaction Time (TEGHEPARINASE) 6.7 4.3 - 8.3 minutes 10/17/2025 11:27 AM EST [facility] Citrated Kaolin K-Time (TEGHEPARINASE) 2.9(H) 0.8 - 2.1 minutes 10/17/2025 11:27 AM EST [facility] Citrated Kaolin Angle (TEGHEPARINASE) 64.4 63.0 - 78.0 degrees 10/17/2025 11:27 AM EST [facility] Citrated Kaolin Maximum Amplitude (TEGHEPARINASE) <40.0(L) 52.0 - 69.0 mm 10/17/2025 11:27 AM EST [facility] Citrated Functional Fibrinogen- Fibrinogen Level (TEGHEPARINASE) 156.5(L) 278.0 - 581.0 mg/dL 10/17/2025 11:27 AM EST [facility] Whole Blood (Citrate) 10/17/2025 10:19 AM EST 10/17/2025 10:46 AM EST [facility] BLOOD ORDERABLES Final Re sult Performing Organization Address [facility]/ZIP Co de Phone Number [facility] [address] [facility] * Hepatitis C RNA, Quant Reflex to Genotyp (10/17/2025 10:19 AM EST) Pathologist [facility] International Units Not Detected IU/mL 10/19/2025 2:12 PM EST [facility] Comment:Test methodology for HCV RNA quantification is an FDA-approved nucleic acid amplification assay. The Lower Limit of Quantitation (LLOQ) is 15 IU/mL. The linear range of the assay is 15-100,000,000 IU/mL. The Limit of Detection (LoD) is 12.0 IU/mL for EDTA plasma. The reference range is Not Detected. IU log10 See Note log 10 IU/mL 10/19/2025 2:12 PM EST [facility] Comment:HCV RNA not detected . Plasma 10/17/2025 10:1 9 AM EST 10/17/2025 11:09 AM EST [facility] BLOOD ORDERABLES Final Re sult Performing Organization Address [facility] Co de Phone Number [facility] [address] [facility] * (ABNORMAL) APTT, No Anticoagulant (10/17/2025 10:19 AM EST) aPTT 41.2(H) 25.5 - 35.0 seconds 10/17/2025 11:02 AM EST [facility] Plasma 10/17/2025 10:1 9 AM EST 10/17/2025 10:46 AM EST [facility] BLOOD ORDERABLES Final Re sult Performing Organization Address City/[facility]/ZIP Co de Phone Number [facility] [address] [place] [address]. [address] * (ABNORMAL) Fibrinogen (10/17/2025 10:19 AM EST) Fibrinogen 116(L) 218 - 406 mg/dL 10/17/2025 11:08 AM EST [facility] Plasma 10/17/2025 10:1 9 AM EST 10/17/2025 10:46 AM EST [facility] BLOOD ORDERABLES Final Re sult Performing Organization Address [facility] Co de Phone Number [facility] [address] [facility] * Magnesium, STAT (10/17/2025 10:18 AM EST) Magnesium 1.7 1.5 - 2.5 mg/dL 10/17/2025 11:46 AM EST [facility] Plasma 10/17/2025 10:1 8 AM EST 10/17/2025 10:46 AM EST [facility] BLOOD ORDERABLES Final Re sult Performing Organization Address City/[facility] Co de Phone Number [facility] [address] [place] [address]. [address] * (ABNORMAL) Jose-Mims Virus VCA IgG Ab (10/17/2025 10:18 AM EST) EBV VCA IgG Positive( A) Negative 10/17/2025 12:18 PM EST [facility] Comment:Presence of detectab le VCA IgG antibodies. A positive result indicates current or past exposure to Jose-Mims virus. EBV IGG NUM >750.00(H ) 0.00 - 17.99 U/mL 10/17/2025 12:18 PM EST [facility] Serum 10/17/2025 10:1 8 AM EST 10/17/2025 10:46 AM EST [facility] BLOOD ORDERABLES Final Re sult [facility] [address] * CMV IgG Antibody (10/17/2025 10:18 AM EST) CMV IgG Negative Negative 10/17/2025 12:16 PM EST [facility] CMV IGG NUM <0.20 0.00 - 0.59 U/mL 10/17/2025 12:16 PM EST [facility] Serum 10/17/2025 10:1 8 AM EST 10/17/2025 10:46 AM EST [facility] LAB BLOOD ORDERABLES Final Re sult Performing Organization Address [facility]/ZIP Co de Phone Number [facility] [address] [facility] * HIV 1+2 Antibody/Antigen with Reflex (10/17/2025 10:18 AM EST) HIV 1+2 AB/AGN Nonreactive Nonreactive 10/17/2025 12:16 PM EST [facility] Serum 10/17/2025 10:1 8 AM EST 10/17/2025 10:46 AM EST Narrative [facility] - 10/17/2025 12:16 PM EST \HIVRNR [facility] LAB BLOOD ORDERABLES Final Re sult [facility] [address] [facility] * Hepatitis B Core Antibody (10/17/2025 10:18 AM EST) Hep B Core Total Ab Nonreactive Nonreactive 10/17/2025 12:17 PM EST [facility] Comment:Health Department no tified in accordance with reportable infectious disease guidelines. Serum 10/17/2025 10:1 8 AM EST 10/17/2025 10:46 AM EST [facility] - 10/17/2025 12:17 PM EST A nonreactive final interpretation indicates that anti-HBc antibodies were not detected in the sample; it is possible that the individual is not infected with HBV. [facility] [place] LAB BLOOD ORDERABLES Final Re sult Performing Organization Address [facility]/ZIP Co de Phone Number [facility] [address] [facility] * Hepatitis C Antibody (10/17/2025 10:18 AM EST) HCV Ab Nonreactive Nonreactive 10/17/2025 12:25 PM EST [facility] Comment:Health Department no tified in accordance with reportable infectious disease guidelines. Serum 10/17/2025 10:1 8 AM EST 10/17/2025 10:46 AM EST [facility] - 10/17/2025 12:25 PM EST Antibodies to HCV not detected; does not exclude the possibility of exposure to HCV. [facility] [place] LAB BLOOD ORDERABLES Final Re sult Performing Organization Address City/[facility] Co de Phone Number [facility] [address] [facility] * (ABNORMAL) Hepatitis B Surface Antibody, Quantitati (10/17/2025 10:18 AM EST) Hep B S Ab Reactive( A) Nonreactive 10/17/2025 12:29 PM EST [facility] HBSAB NUMBER 260.00(H) 0.00 - 7.99 mIU/mL 10/17/2025 12:29 PM EST [facility] Serum 10/17/2025 10:1 8 AM EST 10/17/2025 10:46 AM EST [facility] - 10/17/2025 12:29 PM EST Individual is considered immune to HBV infection. [facility] BLOOD ORDERABLES Final Re sult Performing Organization Address City/[facility]/ZIP Co de Phone Number [facility] [address] [facility]. [address] * Hepatitis B surface antigen (10/17/2025 10:18 AM EST) Hep B Surface Ag Nonreactive Nonreactive 10/17/2025 12:21 PM EST [facility] Comment:Health Department no tified in accordance with reportable infectious disease guidelines. Serum 10/17/2025 10:1 8 AM EST 10/17/2025 10:46 AM EST Narrative [facility] - 10/17/2025 12:21 PM EST Specimen is considered negative for HBsAg. [facility] BLOOD ORDERABLES Final Re sult Performing Organization Address [facility]/ZIP Co de Phone Number [facility] [address] [facility] * Hepatitis A Antibody Total (10/17/2025 10:18 AM EST) Anti-HAV Total (IgG + IgM) Reactive 10/17/2025 12:22 PM EST [facility] Serum 10/17/2025 10:1 8 AM EST 10/17/2025 10:46 AM EST Narrative [facility] - 10/17/2025 12:22 PM EST HAV antibodies detected [facility] BLOOD ORDERABLES Final Re sult [facility] [address] [facility] * Vitamin D 25 Hydroxy (10/17/2025 10:18 AM EST) Vit D, 25-Hydroxy 39.3 30.0 - 100.0 ng/mL 10/17/2025 12:15 PM EST [facility] Comment: Vitamin D deficiency has been defined by the [employer] (IOM) and an Endocrine Society [...] ORDERABLES Final Re sult Performing Organization Address [facility]/ZIP Co de Phone Number [facility] [address] [place] [address]. [address] * Antibody Screen (10/17/2025 10:18 AM EST) Antibody Screen Negative 10/17/2025 11:09 AM EST [facility] Blood 10/17/2025 10:1 8 AM EST 10/17/2025 10:26 AM EST Narrative [facility] - 10/17/2025 11:17 AM EST Testing performed by [facility] Transfusion Service [facility] BLOOD BANK TEST ORDERABLES Fi nal Result Performing Organization Address City/[facility]/ZIP Co de Phone Number [facility] [address] [place] [address]. [address] * ABO/Rh (10/17/2025 10:18 AM EST) ABO Grouping A 10/17/2025 10:53 AM EST [facility] Rh Type Positive 10/17/2025 10:53 AM EST [facility] Blood 10/17/2025 10:1 8 AM EST 10/17/2025 10:26 AM EST [facility] BLOOD BANK TEST ORDERABLES Fi nal Result Performing Organization Address City/[facility]/ZIP Co de Phone Number [facility] [address] [facility] * (ABNORMAL) Hepatic Function Panel (10/17/2025 10:18 AM EST) Total Bilirubin 4.9(H) 0.0 - 1.5 mg/dL 10/17/2025 11:47 AM EST [facility] Bilirubin, Direct 1.35(H) 0.00 - 0.40 mg/dL 10/17/2025 11:47 AM EST [facility] AST 39 13 - 39 U/L 10/17/2025 11:47 AM EST [facility] ALT 27 7 - 52 U/L 10/17/2025 11:47 AM EST [facility] Alkaline Phosphatase 143(H) 36 - 125 U/L 10/17/2025 11:47 AM EST [facility] Total Protein 6.5 6.4 - 8.9 g/dL 10/17/2025 11:47 AM EST [facility] Albumin 2.3(L) 3.5 - 5.7 g/dL 10/17/2025 11:47 AM EST [facility] Bilirubin, Indirect 3.55(H) 0.00 - 1.10 mg/dL 10/17/2025 11:47 AM EST [facility] Plasma 10/17/2025 10:1 8 AM EST 10/17/2025 10:46 AM EST [facility] BLOOD ORDERABLES Final Re sult [facility] [address] [place] [address], [facility] * (ABNORMAL) Renal Function Panel w/EGFR (10/17/2025 10:18 AM EST) Sodium 141 133 - 146 mmol/L 10/17/2025 11:47 AM EST [facility] Potassium 3.3(L) 3.5 - 5.3 mmol/L 10/17/2025 11:47 AM EST [facility] Chloride 110 98 - 110 mmol/L 10/17/2025 11:47 AM [facility] CO2 29 21 - 33 mmol/L 10/17/2025 11:47 AM [facility] Comment:High lactate dehydro genase concentrations in patient samples may cause falsely increased bicarbonate results. If markedly elevated LDH is observed or suspected, please assess results in conjunction with patient`s clinical presentation. In cases of discrepant results, consider evaluating CO2 in with a blood gas order. Anion Gap 2(L) 3 - 16 mmol/L 10/17/2025 11:47 AM [facility] BUN 13 7 - 25 mg/dL 10/17/2025 11:47 AM [facility] Creatinine 0.81 0.60 - 1.30 mg/dL 10/17/2025 11:47 AM [facility] Glucose 81 70 - 100 mg/dL 10/17/2025 11:47 AM [facility] Calcium 8.1(L) 8.6 - 10.3 mg/dL 10/17/2025 11:47 AM [facility] Phosphorus 2.8 2.1 - 4.7 mg/dL 10/17/2025 11:47 AM [facility] Albumin 2.3(L) 3.5 - 5.7 g/dL 10/17/2025 11:47 AM [facility] Osmolality, Calculated 291 278 - 305 mOsm/kg 10/17/2025 11:47 AM [facility] EGFR >90 10/17/2025 11:47 AM [facility] Comment: As of 2022, the estimated [...] ORDERABLES Final Re sult Performing Organization Address [facility] Co de Phone Number [facility] [address] [facility] * Hemoglobin A1C (10/17/2025 10:18 AM EST) Hemoglobin A1C 4.0 4.0 - 5.6 % 10/17/2025 1:42 PM EST [facility] Comment: Hemoglobin A1c Interpretation Guidelines: Normal: [...] ORDERABLES Final Re sult Performing Organization Address [facility] de Phone Number [facility] [address] [facility] * (ABNORMAL) Venous Blood Gas, Line/Syringe, STAT (10/17/2025 10:18 AM EST) PH-Line Draw 7.37 7.32 - 7.42 10/17/2025 10:27 AM EST [facility] PCO2-Line Draw 46 41 - 51 mm Hg 10/17/2025 10:27 AM EST [facility] PO2-Line Draw 29 25 - 40 mm Hg 10/17/2025 10:27 AM EST [facility] HCO3-Line Draw 24 24 - 28 mmol/L 10/17/2025 10:27 AM EST [facility] CO2 Content-Line Draw 28 25 - 29 mmol/L 10/17/2025 10:27 AM EST [facility] Base Excess-Line Draw 0.9 -2.0 - 3.0 mmol/L 10/17/2025 10:27 AM EST [facility] %HBO2-Line Draw 38.5(L) 40.0 - 70.0 % 10/17/2025 10:27 AM EST [facility] Carboxyhgb-Rebecca e Draw 1.4 0.0 - 2.0 % 10/17/2025 10:27 AM EST [facility] Comment: CARBOXYHEMOGLOBIN (CO) REFERENCE RANGES: Non-Smokers: <2 % Smokers: <8 % TOXIC: >20 % Methemoglobin- Line Draw 0.6 0.0 - 1.5 % 10/17/2025 10:27 AM EST [facility] Blood, Venous 10/17/2025 10: 18 AM EST 10/17/2025 10:24 AM EST [facility] BLOOD ORDERABLES Final Re sult [facility] [address] [place] [address], [facility] * (ABNORMAL) Protime-INR (10/17/2025 10:18 AM EST) Protime 21.7(H) 12.1 - 15.1 seconds 10/17/2025 11:01 AM EST [facility] INR 1.8(H) 0.9 - 1.1 10/17/2025 11:01 AM EST [facility] Comment: RECOMMENDED THERAPEUTIC RANGES USING INR : Stable oral anticoagulant therapy: 2.0 - 3.0 Mechanical prosthetic heart valve: 2.5 - 3.5 Recurrent acute myocardial infarction: 2.5 - 3.5 Plasma 10/17/2025 10:1 8 AM EST 10/17/2025 10:46 AM EST [facility] BLOOD ORDERABLES Final Re sult [facility] [address] * (ABNORMAL) Differential (10/17/2025 10:18 AM EST) Neutrophils Relative 45.0 40.0 - 80.0 % 10/17/2025 10:59 AM EST [facility] Lymphocytes Relative 34.7 15.0 - 45.0 % 10/17/2025 10:59 AM EST [facility] Monocytes Relative 12.9(H) 0.0 - 12.0 % 10/17/2025 10:59 AM EST [facility] Eosinophils Relative 6.4 0.0 - 8.0 % 10/17/2025 10:59 AM EST [facility] Basophils Relative 1.0 0.0 - 1.0 % 10/17/2025 10:59 AM EST [facility] nRBC 0 0 - 0 /100 WBC 10/17/2025 10:59 AM EST [facility] Neutrophils Absolute 1,845 1,520 - 8,640 /uL 10/17/2025 10:59 AM EST [facility] Lymphocytes Absolute 1,423 570 - 4,860 /uL 10/17/2025 10:59 AM EST [facility] Monocytes Absolute 529 0 - 1,296 /uL 10/17/2025 10:59 AM EST [facility] Eosinophils Absolute 262 0 - 864 /uL 10/17/2025 10:59 AM EST [facility] Basophils Absolute 41 0 - 108 /uL 10/17/2025 10:59 AM EST [facility] Whole Blood 10/17/2025 10:1 8 AM EST 10/17/2025 10:46 AM EST [facility] BLOOD ORDERABLES Final Re sult [facility] [address] * (ABNORMAL) CBC (10/17/2025 10:18 AM EST) Pathologist [facility] WBC 4.1 3.8 - 10.8 10E3/uL 10/17/2025 10:59 AM EST [facility] RBC 3.32(L) 4.20 - 5.80 10E6/uL 10/17/2025 10:59 AM EST [facility] Hemoglobin 11.2(L) 13.2 - 17.1 g/dL 10/17/2025 10:59 AM EST [facility] Hematocrit 32.9(L) 38.5 - 50.0 % 10/17/2025 10:59 AM EST [facility] MCV 99.1 80.0 - 100.0 fL 10/17/2025 10:59 AM EST [facility] MCH 33.8(H) 27.0 - 33.0 pg 10/17/2025 10:59 AM [facility] MCHC 34.1 32.0 - 36.0 g/dL 10/17/2025 10:59 AM [facility] RDW 17.3(H) 11.0 - 15.0 % 10/17/2025 10:59 AM [facility] Platelets 61(L) 140 - 400 10E3/uL 10/17/2025 10:59 AM [facility] MPV 8.2 7.5 - 11.5 fL 10/17/2025 10:59 AM [facility] Whole Blood 10/17/2025 10:1 8 AM EST 10/17/2025 10:46 AM EST [facility] BLOOD ORDERABLES Final Re sult [facility] [address] * Toxoplasma gondii Antibody, IgG (10/17/2025 10:18 AM EST) Pathologist [facility] Toxoplasma Gondii IgG <3.0 0.0 - 7.1 IU/mL 10/18/2025 4:54 AM EST [facility] Comment: Negative <7.2 Equivocal 7.2 - 8.7 Positive >8.7 Serum 10/17/2025 10:1 8 AM EST 10/18/2025 5:06 AM EST Narrative [facility] - 10/18/2025 5:06 AM EST PERFORMED AT: [facility] [id number] [employer] C[employer] PROFESSIONAL: Mateo Miller, PhD PHONE: [phone] us [facility] BLOOD ORDERABLES Final Re sult [facility] [address] [place] [address], [facility] * X-ray Portable Chest (10/17/2025 10:11 AM [...] in sodium chloride 0.9% 100 mL IVPB ([id number]) 1 g, Intravenous, at 200 mL/hr, Every 6 hours, First dose on Wed10/17/25 at 2300, For 7 doses, Dosage may need to be adjusted for renal dysfunction. Full dose is 1g IV q6h Use Pryf2Amr Adapter - Mix Thoroughly Before Administration, Post-op [...] paralyzed: Do not titrate - follow policy [id number]. Start infusion if unable to maintain goal [...] 10/18/2025 7:02 AM EST 0.03 Units/min 4.5 mL/[employer] Infusion Pump 10/17/2025 10:54 PM EST 0.03 [...] Stacy Zamorano RN)2001 (Given - Provider: Anne L Yared, RN) 0949 (Given - Provider: Charbel Ji [...] Zamorano RN)1714 (Given - Provider: Stacy Zamorano RN)2013 (Given - Provider: Anne Vail RN) 08 (Given - Provider: Stacy Zamorano RN)1231 (Given [...] SILVIO) 0842 (Given - Provider: Charbel Ji, SILVIO) [...] HAZARDOUS MEDICATION 0820 (Given - Provider: Stacy Zamorano RN)2001 (Given - Provider: Anne Vail RN) 0948 [...] as of this encounter Care Teams Manager Respiratory Relationship Specialty Start Date End Date System, Provider Not In PCP - General 09/10/25 10/24/25 documented as of this encounter
--- OUTSIDE RECORDS SUMMARY | 2025-10-17 12:00 | XMS_ITS | Encounter Summary ---
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 [id number] Health Reason for Visit * Auth/Cert (Routine) Specialty Diagnoses / Procedures Referred By Contru t Referred To Contact Diagnoses TRANSPLANT LIVER Procedures TRANSPLANT LIVER [facility] [address] [place] [address] Phone: tel: Referral ID Status Reason Start Date Expiration Date Visits Re quested Visits Authorized [id number] 1 1 Encounter Details Date Type Department Care Team (Late st Contact Info) Description 10/17/2025 12:00 PM EST - 10/17/2025 8:12 PM EST Surgery [facility] [address] [place] [address] Vani Winkler MD [facility] [place] [id number] TRANSPLANT LIVER Surgery Details Date/Time Status Location [...] any time in the past 12 m [facility], were you homeless or living in a intermediate (including now)? No 10/17/2025 Utilities Answer Date [...] Question Answer Date of Assessment Author SABINO (AMY) X 10/22/2025 8:00 AM EST Charbel Moseley RN R Eye Intact;Impaired vision 10/22/2025 8:00 AM EST Charbel Ji RN L Eye Intact;Impaired vision 10/22/2025 8:00 AM Charbel Cheatham RN R Ear Intact;Impaired hearing;Hearing aid 10/22/2025 [...] 8:00 AM EST Charbel Moseley RN Tongue [place] & moist 10/22/2025 8:00 AM EST Charbel Moseley RN Voice Deep 10/21/2025 8:00 AM EST Stacy Shankar RN Mucous Membrane(s) Moist;[place];Intact 10/22/2025 8:00 A M Charbel Cheatham RN Teeth Missing teeth 10/22/2025 8:00 AM EST Charbel Huber RN Lips Symmetrical;Intact 10/22/2025 8:00 AM Charbel Cheatham RN * Weight in kg Answer Date of Assessment Author 99.79 10/17/2025 9:39 AM EST Promise Pickens R * Height in cm Answer Date [...] (mL) 955 10/18/2025 5:31 AM Karen Calle, [employer] Resp Rate (Actual) 7 10/18/2025 7:50 AM Teresa Gillette, [employer] Resp Rate (Set) 16 10/18/2025 12:48 AM Karen Cavazos, [employer] Vt (Set, mL) 400 10/18/2025 12:48 AM Karen South, [employer] PEEP/CPAP 5 10/18/2025 7:50 AM Teresa Ren, [employer] PIP Observed 11 10/18/2025 7:50 AM Teresa Ren RRT Vt Exp 1095 10/18/2025 7:50 AM Teresa Ren, [employer] Delta Pressure Support (cm H2O) 5 10/18/2025 7:50 AM Teresa Gillette, [employer] Insp Rise Time (%) 0.2 10/18/2025 7:50 AM Teresa Gillette, [employer] I:E Ratio 1:5.7 10/18/2025 4:37 AM Karen Calle, [employer] Airway Resistance 2.5 10/18/2025 7:50 AM Teresa Gillette, [employer] Inspiratory Time Set 0.9 10/18/2025 12:48 AM Karen Hendrix, [employer] Dynamic Compliance (L/cm H2O) 184 10/18/2025 7:50 AM Teresa Gillette, [employer] Trigger Sensitivity Flow (L/min) 2 10/18/2025 7:50 AM Teresa Gillette, BK * PT Comments Question Answer Date of Assessment Author PT Treatment Details H/TXP; s/p OLT. min A bed mob, CGA STS w/RW, CGA-SBA gait 250' w/RW; hypertensive on E, good on f/u. super nice and motivated, IPTA; 2STE 10/19/2025 10:22 AM EST Jen Mckeon, PT PT Patient Seen 2: 5E, 10/2210/19/2025 10:22 AM Jen Radford, PT * OT Comments Question Answer Date of Assessment Author OT Treatment Details H/TXP (until 10/25) : s/p OLT, min STS, CGA to transfer w/ RW, min sit<>sup transfer, nice, motivated, supportive fam 10/19/2025 10:59 AM EST Lary Ding, OT OT Patient Seen 3: 10/19/2025 10:59 AM EST Lary Perales, OT * Patient Preparation Question Answer Date [...] of Assessment Author Void Prior to Procedure 52489 10/17/2025 9:37 A M Yvette Whitehead RN * Tania Coma Scale Question Answer Date of Assessment Author Eye Opening 4 10/22/2025 8:00 AM Charbel Snyder RN Best Motor Response 6 10/22/2025 8:00 AM Charbel Do RN Best Verbal Response 5 10/22/2025 8:00 AM Charbel Agee RN Tania Coma Scale Score 15 10/22/2025 8:00 AM [...] an d reviewed? No 10/17/2025 11:47 PM Kira Chandler R N * Case Status Question Answer Date of Assessment Author Case Status Discharge ready 10/22/2025 12:24 PM Citlaly Bhatia RN * Assessment Information Question Answer Date of Assessment Author Assessment Information Reassessment;No changes from MY previous assessment 10/22/2025 12:00 PM Charbel Cheatham RN * Assessment Information Question Answer Date of Assessment Author Assessment Information Shift Assessment 10/17/2025 9:3 9 AM Yvette Whitehead RN * MEWS Score Question Answer Date of Assessment Author MEWS Score 1 10/22/2025 5:01 PM EST Selma osorio Iris * Respiratory Vitals Question Answer Date of Assessment Author Mean Airway Pressure 5.9 10/18/2025 7:50 AM E Teresa Wang RRT Spont TV 902 10/18/2025 7:50 AM Teresa Ren RRT Ve 6.9 10/18/2025 7:50 AM Teresa Ren RRT * Total Workload Score Answer Date of Assessment Author 63.09 10/22/2025 5:15 PM EST Minesh, Iris * P.O. Intake Question Answer Date of [...] Information to Post Acute Care Providers Electronic (Brigade InBaAddSearchet/CareEverbibiana e/EpicCare Link) 10/22/2025 3:12 PM Citlaly Potter RN [...] children and their names 1- Lan Serrano ([phone]) and Gloria Banegas ([phone]) 10/19/2025 1:37 PM Citlaly Potter RN * Support Systems Question Answer Date of Assessment Author Name of Guardian/POA/ Payee and Phone Number Stacy Serrano ([phone]) 10/19/2025 1:37 PM Citlaly Potter RN Caregiver name/phone number Stacy Serrano ([phone]) 10/19/2025 1:37 PM Citlaly Potter RN Times [...] Date of Assessment Author Date of Service [address]92[address] 10/22/2025 12:23 PM Citlaly Potter RN Time Spent with Patient (minutes) 60 10/22/2025 12:23 PM Citlaly Potter RN Role RN Care Coordination 10/22/2025 12:23 PM Citlaly Potter RN Interventions Discharge Planning 10/22/2025 12 :23 PM EST Zimmerman, Citlaly, RN * Pertinent Medications Question Answer Date of Assessment Author Anticoagulation therapy Yes 10/19/20 1:37 PM Citlaly Potter RN New Diabetic No 10/19/2025 1:37 PM Citlaly Potter RN Anticoagulant (Name of Drug) hosptial herparin protocol 10/19/2025 1:37 PM Citlaly Potter RN * Position after treatment and safety handoff Question Answer Date of Assessment Author Position after therapy session Bed 10/19/2025 10:57 AM EST Lary Ding, OT Details RN notified;visitor present;Call light/ needs within reach 10/19/2025 10:57 AM EST Strodarren, Lary, OT Alarms Bed 10/19/2025 10:57 AM EST Stro darren, Lary, OT Alarms Status Activated and Interfaced with call system 10/19/2025 10:57 AM EST New Dniga, OT * HIDDEN-Infusion Dashboard Answer Date of Assessment Author 123 10/22/2025 2:00 PM Charbel Cheatham, SILVIO * Home medication infusion pump Question Answer Date of Assessment Author Does patient have a home med ication infusion pump? No 10/17/2025 11:45 PM Kira Chandler R N * Diabetes Survey Questions Question Answer Date of Assessment Author Do you have Diabetes? No 10/17/2025 11:42 PM Kira Chandler RN * Ronit's Cardiac Output Score Question Answer Date of Assessment Author CO (L/min) 6.61 10/18/2025 6:57 AM Karen Calle RRT CI (L/min/m2) 3.18 10/18/2025 6:57 AM Karen South, BK * Position after treatment and safety handoff Question Answer Date of Assessment Author Position after therapy session Chair 10/22/2025 12:08 PM EST Jen Mckeon, PT Details RN notified;Call lig ht/ needs within reach 10/22/2025 12:08 PM EST Jen Mckeon, PT Alarms Chair 10/22/2025 12:08 PM EST Richard Napierthi, PT Alarms Status Activated and Interfaced with call system 10/22/2025 12:08 PM EST Jen Mckeon, PT * Status & Connection to [facility] Services Question Answer Date of Assessment Author Are you a ? No 10/19/2025 1:37 PM Citlaly Potter RN * ROSELYN (PAS-PAD/CVP) Answer Date of [...] of Assessment Author Date of Last Fall [id number] 10/18/2025 12:00 AM Kira Chandler RN Fall Risk Precautions In Place [place] 10/22/2025 12:00 PM Charbel Cheatham RN Other [...] Answer Date of Assessment Author Stool consistency: Riparius Stool Chart Type 6: Fluffy pieces with ragged edges, a mushy stool 10/22/2025 8:00 AM Charbel Cheatham RN Stool Occurrence 0 10/22/2025 12:00 PM Charbel Cheatham RN Stool 0 10/22/2025 12:00 PM Charbel Newsome RN Stool Color Brown 10/22/2025 8:00 AM Charbel Snyder RN Stool Amount Small 10/22/2025 8:00 AM Charbel Snyder RN Bowel Incontinence No 10/22/2025 12:00 PM VIVIAN T Charbel Ji RN * Output Activities [...] Author BP (mmHg) 1902/80s 10/19/2025 10:20 AM Jen Hampton, PT Comments on Vitals pt with increasing hypertension during mobility, returned to 140s with rest at end of session. All other VSS 10/19/2025 10:20 AM Jen Radford, PT * Agitation Risk Factor Scoring Tool Question Answer Date of Assessment Author Hx of Aggression 0 10/22/2025 6:01 AM EST B atch Job, Background User Hx of Bipolar Disorder 0 10/22/2025 6:01 AM EST Batch Job, Background User Hx of Dementia 0 10/22/2025 6:01 AM EST Bat ch Job, Background User Positive Drug Screen in [...] VSS throughout 10/22/2025 12:09 PM EST Re Jen posada, PT * Cognition Question Answer Date of Assessment Author Orientation Level Oriented X4 10/22/2025 12:08 PM EST Jen Mckeon, PT * Risk Category Answer Date of [...] Volume (mL) Fentanyl 7.07 10/18/2025 7:58 AM E Angela Rizo RN * Restraint Device Status: Upon Initiation, [...] Assessment Author SpO2 96 10/22/2025 2:00 PM Charbel Snyder RN O2 Flow Rate (L/min) 2 10/20/2025 12:00 AM EST Anne Vail RN O2 Device None (Room air) 10/22/2025 12:00 PM EST Charbel Mckeon RN FiO2 40 10/18/2025 9:00 AM Angela Del Cid RN SpO2 Alarm Limit Low 90 10/22/2025 12:00 PM Charbel Cheatham RN SpO2 Alarm Limit High 100 10/22/2025 12:00 PM Charbel Cheatham RN Oximetry Probe Site Changed No 10/22/2025 12:00 PM Charbel Cheatham RN Pulse Oximetry Type Continuous 10/22/2025 12:00 PM E Charbel Le RN * Vitals Question Answer Date of [...] Author PAP (Mean) 19 10/18/2025 6:00 PM EST Angela Tamez RN PPV 15 10/20/2025 8:00 AM EST Stacy Shankar RN PCWP (mmHg) 11 10/18/2025 6:57 AM EST Karen Brown, BK SVR (dyne*sec)/cm5 677 10/18/2025 6:57 AM EST Karen Washington [employer] PVR (dyne*sec)/cm5 85 10/18/2025 6:57 AM Karen Hendrix RRT SV (mL) 101.7 10/18/2025 6:57 AM Karen Calle RRT * Neurological Question Answer Date of Assessment Author Level of Consciousness Alert 8:00 AM Charbel Cheatham RN Cognition Ability to abstract;Appropriate judgement;Appropriate safety awareness;Appropriate attention/concentration; Appropriate for developmental age;Follows simple commands 10/22/2025 8:00 AM Charbel Cheatham RN Speech Clear;Appropriate fo r developmental age 1210/22/2025 8:00 AM EST Charbel Ji RN L Pupil Reaction Reactive 10/22/2025 8:00 AM Charbel Cheatham RN L Pupil Size (mm) 3 10/22/2025 8:0 0 AM EST Charbel Ji RN R Pupil Reaction Reactive 10/22/2025 8:00 AM Charbel Cheatham RN R Pupil Size (mm) 3 10/22/2025 8:0 0 AM EST Charbel Ji RN LUE Motor Response Responds to commands 10/22/20 8:00 AM EST Chrabel Ji RN LUE Sensation Full sensation 10/22/2025 8:00 AM EST Charbel Ji RN LLE Motor Response Responds to commands 10/22/20 8:00 AM EST Charbel Ji RN LLE Sensation Full sensation 10/22/2025 8:00 AM EST Charbel Ji RN RUE Motor Response Responds to commands 10/22/20 8:00 AM EST Charbel Ji RN RUE Sensation Full sensation 10/22/2025 8:00 AM EST Charbel Ji RN RLE Motor Response Responds to commands 10/22/20 8:00 AM EST Charbel Ji RN RLE Sensation Full sensation 10/22/2025 8:00 AM EST Charbel Ji RN Neuro (WDL) WDL 10/22/2025 8:00 AM EST Charbel Ji RN R Hand Legal Clerk Moderate 10/22/2025 8:00 AM Charbel Cheatham RN L Hand Legal Clerk Moderate 10/22/2025 8:00 AM EST Charbel Ji RN R Foot Dorsiflexion Moderate 10/22/2025 8 :00 AM Charbel Cheatham RN L Foot Dorsiflexion Moderate 10/22/2025 8 :00 AM Charbel Cheatham RN R Foot Plantar Flexion Moderate 8:00 AM [...] AM Charbel Cheatham RN Motor Function/Sensation Assessment Legal Clerk;Dorsiflexion;Planta r flexion;Motor response;Sensation;Motor strength 10/22/2025 8:00 AM [...] RN Cardiac Symptoms None 10/22/2025 8:00 AM Charbel Weir RN * [place] Question Answer Date of Assessment Author [place] Placement Date [id number] 10/19/2025 4:00 AM Anne Bradley RN [place] Removal Date 96933 10/19/2025 4:45 AM Anne Taveras RN Swan Lumen Status All lumens patent 10/19/2025 4:00 AM Anne Taveras RN Type of [place] Manual 10/19/2025 4:00 AM Anne Taveras RN [place] (cm) 51 10/19/2025 4:00 AM Anne Deal RN [place] Wave Form Sharp wave forms;Rezeroed 10/17/2025 10:40 PM Kira Chandler RN * Gastrointestinal Question Answer Date of Assessment Author [place] BM Date [address] 10/22/2025 8:00 AM Charbel Cheatham RN Passing [...] RN RLE Edema +2 10/22/2025 8:00 AM EST Charbel Moseley RN LLE Edema +2 10/22/2025 8:00 AM Charbel Snyder RN Capillary Refill Less than 3 seconds (All extremities) 10/22/2025 8:00 AM Charbel Cheatham RN Pulses R radial;L radial;R pedal;L pedal 10/22/2025 8:00 AM Charbel Cheatham RN Cyanosis None 10/22/2025 8:00 AM Charbel Snyder RN Edema Generalized;Right lower extremity;Left lower extremity 10/22/2025 8:00 AM Charbel Cheatham RN * RUBraden Neurovascular Assessment Question Answer Date of Assessment Author R Radial Pulse +2 10/22/2025 8:00 AM Charbel Jones RN * LUBraden Neurovascular Assessment Question Answer Date of Assessment [...] Cheatham RN Family Behaviors Appropriate for situation;Cooperative;C ewdar;Supportive 10/22/2025 8:00 AM Charbel Cheatham RN Visitor Behaviors Appropriate for situation 10/22/2025 8:00 AM Charbel Cheatham RN Needs Expressed Physical;Emotional 10/22/2025 8:00 AM Charbel Cheatham RN Rest/Sleep for Family Fair 10/22/2025 8:00 AM Charbel Cheatham RN Rest/Sleep for Patient Fair 10/22/2025 8:00 AM Charbel Cheatham RN * Radha Fall Risk Question Answer Date of Assessment [...] 15 10/22/2025 8:00 AM Charbel Newsome RN Morse Fall Risk Score 65 10/22/2025 8:00 AM [...] Assessment Author 2.16 10/17/2025 9:39 AM EST Celio, Ro nda R * Cardiac Question Answer Date of Assessment Author Telemetry/Boilermaker Fitter Yes 10/17/2025 9:39 AM EST Yvette Durham, SILVIO * Cough Description Question Answer Date of Assessment Author Sputum Amount None 10/22/2025 8:00 AM EST Charbel Huber RN Sputum Color None 10/22/2025 8:00 AM EST Charbel Moseley RN Sputum Consistency None 10/22/2025 8:00 AM EST Charbel Ji, SILVIO * Pulmonary Volume Expansion Question Answer Date of Assessment Author Sputum Present 10/22/2025 11:25 AM EST Nate Tovar, [employer] Pulm Vol Expansion Goal 1250 10/22/2025 11:25 AM EST Nate Wolfe, [employer] Pulm Vol Expansion Achieved 4412-2648 10/22/2025 11 :25 AM EST Nate Wolfe, [employer] * Vitals Question Answer Date of Assessment Author Height 66 10/17/2025 9:39 AM Suzanne Paulino R Weight 3520 10/17/2025 9:39 AM Suzanne Paulino * Insulin Drip Question Answer Date of Assessment Author Volume (mL) Insulin 7.4 10/19/2025 10:54 AM E Angela Rizo RN * Epinephrine Drip Question Answer Date of Assessment Author Volume (mL) Epinephrine 7.25 10/17/2025 11:00 PM iKra Chandler RN * Propofol Drip Question Answer Date [...] Type of Healthcare Directive Durable power of insurance attorney for health care 10/19/2025 1:50 PM [...] has the electric, gas, oil, or water company threatened [...] living in a intermediate (including now)? No 10/17/2025 11:47 PM Kira [...] 3 Days 2 10/17/2025 11:48 PM Kira Chandelr R N Within the past 12 months, [...] Orellana RN Neglect Denies 10/17/2025 9:30 AM Yvette Hoyos RN * Values / Beliefs Question Answer Date of Assessment Author Cultural Requests During Hospitalization No 10/17/2025 9:30 AM Yvette Whitehead RN Spiritual Requests During Hospitalization No 10/17/2025 9:30 AM Yvette Whitehead RN * Stool Assessment Question Answer Date of Assessment Author Stool Source Colostomy 10/22/2025 8:01 AM Charbel Snyder RN * Art Line Question Answer Date of Assessment Author Arterial Line MAP (mmHg) 113 10/20/2025 10:00 AM Stacy Kim RN Arterial Line Location Right radial 10/20/2025 4:00 AM Anne Taveras RN Art Line Wave Form Appropriate wave forms 10/20/2025 4 :00 AM Anne Taveras RN * Genitourinary Question Answer Date of Assessment Author Genitourinary ([facility]) WD 10/22/2025 8:00 AM Charbel Do RN Genitourinary Symptoms None 10/22/2025 8:00 AM Charbel Cheatham RN * Neurological Question Answer Date of Assessment Author Neuro ([facility]) [facility] 10/17/2025 9:39 AM Yvette Hoyos RN Neuro Additional Assessments Bell Coma Scale 10/17/2025 9:39 AM Yvette Whitehead RN * Airway Suctioning/Secretions Question Answer Date of Assessment Author Suction Type ETT 10/18/2025 12:48 AM Karen South, [employer] Secretion Amount Scant 10/18/2025 12:48 AM Karen Hendrix, [employer] Secretion Color Clear;White 10/18/2025 12:48 AM EST Karen Benito [employer] Secretion Consistency Thick;Thin 10/18/2025 12:48 AM Karen Hendrix, [employer] Suction Device Inline 10/18/2025 12:48 AM Karen Longoria [employer] Suction Tolerance Tolerated well 10/18/2025 12:48 AM Karen Paige, [employer] Suctioning Adverse Effects None 10/18/2025 12: 48 AM Karen Hendrix RRT * Home Living Question Answer Date of [...] Layout One level 10/19/2025 9:09 AM Lary Garcia, OT Bathroom Shower/Tub Tub/shower unit 10/19/2025 9:09 AM Lary Oscar, OT Bathroom Toilet Standard 10/19/2025 9:09 AM EST Lary Hoffman, OT Bathroom Equipment Grab bars in shower 10/19/2025 9:09 AM Lary Oscar, OT Home Equipment Single-point cane 10/19/2025 9:09 AM Lary Ceja OT Lives With Spouse 10/19/2025 9:09 AM Lary Garcia, OT * Patient Suicide Screen Question Answer [...] Lowest Position Yes 10/17/2025 9:39 AM Yvette Whitehead, SILVIO Bed Wheels Locked Yes 10/17/2025 9:39 AM Yvette Whitehead RN Side Rails/Bed Safety /10/17/2025 9:39 AM Yvette Whitehead RN NonSkid Footwear [...] Assessment Author Precautions Aspiration;Bleeding 10/22/2025 12:00 PM Charbel Agee RN * Family/Significant Other Communication Question Answer [...] mL FEMALE 237.2 10/17/2025 9:39 AM EST Tito Pickensda R IBW/kg (Calculated) Male 63.8 10/17/2025 9:39 AM Tito Paulinoda R Low Range Vt 6 mL MALE 382.8 10/17/2025 9:39 AM Tito Paulinoda R Moderate Range Vt 8 mL MALE 510.4 10/17/2025 9: 39 AM Tito Paulinoda R High Range Vt 10 mL MALE 638 10/17/2025 9:39 AM EST Tito Pickensda R IBW/kg (Calculated) FEMALE 59.3 10/17/2025 9:3 9 AM EST Tito Pickensda R Low Range Vt 6 mL FEMALE 355.8 10/17/2025 9:39 AM Tito Paulinoda R Moderate Range Vt 8 mL FEMALE 474.4 10/17/2025 9:39 AM Tito Paulinoda R High Range Vt 10 mL FEMALE 593 10/17/2025 9:3 9 AM Suzanne Paulino * Oxygen Therapy/Pulse Ox Question Answer Date of Assessment Author O2 Therapy Room air 10/22/2025 11:25 AM Nate Conrad, [employer] * Vasopressin Drip Question Answer Date of [...] Yvette Reyes RN Date of last liquid 45544 10/17/2025 9:32 AM Yvette Reyes RN Date of last solid 93134 10/17/2025 9:32 AM Yvette Whitehead RN Time of last solid 05048 10/17/2025 9:32 AM Yvette Whitehead RN * [...] or ex-partner? No 10/17/2025 9:30 AM Susannah hWitehead RN Within the last year, have y [...] Breath Sounds Clear;Diminished 025 11:25 AM Nate Albrecht, BK Respiratory Pattern Regular 10/22/2025 1 1:25 AM Nate Albrecht, BK Chest Assessment Chest expansion symmetrical 10/22/2025 11:25 AM Nate Albrecht, BK Sputum How Obtained Cough on request 10/18/2025 12:05 PM Teresa Gillette RRT Position Semi-[place]'s 10/22/2025 11:25 AM Nate Albrecht, BK $Assessment Limited 10/18/2025 7:50 AM Teresa Gillette RRT [place] at bedside Yes 10/22/2025 11 :25 AM EST Wolfe, Nate P, [employer] * Airways Question Answer Date of Assessment Author Airway LDA ETT 10/18/2025 7:50 AM Teresa Ren RRT * Specimen Collection Status Question Answer Date of Assessment Author Specimen Collection Unit 10/22/2025 12:00 PM E Charbel Le RN * Temp (in Celsius) Answer Date [...] Max (cm H2O) 40 10/18/2025 7:50 AM Teresa Gillette RRT MV High (L/min) 20 10/18/2025 7:50 AM EST Teresa Brooke RRT Insp Pressure Low (cm H2O) 0 10/17/2025 10: 38 PM EST Karen Washington RRT MV Low (L/min) 4 10/18/2025 7:50 AM EST Teresa Ashton RRT Insp Pressure High (cm H2O) 40 10/18/2025 7: 50 AM EST Teresa العلي RRT * Vent Information Question Answer Date [...] to Extubate Yes 10/18/2025 12:48 AM Fortunato Hendrix RRT Ventilator Initiated Yes 10/17/2025 10:38 PM [...] RN Skin Condition/Temp Warm;Dry 10/22/2025 8:00 AM ES T Charbel Ji RN Skin Integrity Surgical wound 10/22/2025 8:00 AM EST Charbel Mckeon RN Skin Turgor Non-tenting 10/22/2025 8:00 AM EST Charbel Moseley RN Integumentary (WDL) X 10/22/2025 8:00 AM ES T Charbel Ji RN Skin Location Abdomen 10/22/2025 8:00 AM Charbel Newsome RN * C = Choice of Sedation [...] Involvement Question Answer Date of Assessment Author OCSAR/CM Name and phone # Citlaly Zimmerman RN/ SAJAN [phone] 10/22/2025 12:24 PM Citlaly Potter RN Role of the Rn Intake Explained Yes 10/22/2025 12:24 PM Citlaly Potter R N Role of the Linux Kernel Developer Explained Yes 10/22/2025 12:24 PM Citlaly Potter [...] Care Plan Completed Yes 10/22/2025 12:[address] Zimmerman, Citlaly, RN * Restraint Initiation: Upon Restraint Start [...] PT and OT 10/19/2025 1 0:22 AM EST Jen Mckeon, PT * LACE+ Score Answer Date of Assessment Author 53 10/22/2025 5:24 PM EST Naomy Foreman * Gait Question Answer Date of Assessment Author Gait Characteristics Steady;decreased lili;Increased trunk flexion;No LOB;R decreased step length;L decreased step length 10/22/2025 12:08 PM EST Jen Mckeon PT Level of Assistance Contact Guard assistance;Stand [...] eal suctioning 0 10/18/2025 7:00 PM Anne Taveras, RN * Voice Question Answer Date of [...] Device Rolling walker 10/19/2025 10:19 AM EST Jen Mckeon, PT Standing-Static Contact Guard Assistance;With Assistive Device 10/19/2025 10:19 AM EST Jen Mckeon, PT Sitting-Dynamic Stand by assistance 10/19/2025 1 0:19 AM EST Richard Mckeonthi, PT Standing-Dynamic Contact Guard Assistance;Minimal Assistance;With Assistive Device 10/19/2025 10:19 AM EST Jen Mckeon, PT * Gait Question Answer Date of Assessment Author Gait Characteristics Steady;decreased lili;Increased trunk flexion;No LOB;R decreased step length;L decreased step length 10/19/2025 10:19 AM EST Jen Mckeon, PT Level of assistance Contact Guard assistance;increased time to complete task 10/19/2025 10:19 AM EST Jen Mckeon, PT Assistive Device Rolling walker 10/19/2025 10:19 AM ES T Richard Mckeonthi, PT Distance (in feet) 5' 10/19/2025 10:19 AM ES Richard Fournierthi, PT * Transfers Question Answer Date of [...] NPO/TF) 0 10/18/2025 7:00 PM Anne Taveras RN * Hospital Course PT/OT Question Answer Date [...] Goals Question Answer Date of Assessment Author Driver Service Technician Goal =STG 10/19/2025 10:21 AM Jen Radford PT Patient will transition from sit to supine Stand-By assistance 10/19/2025 10:21 AM Jen Radford PT Patient will transfer from sit to stand Supervision 10/22/2025 12:09 PM eJn Radford PT Distance (in feet) 300' 10/22/2025 12 :09 PM Jen [place] [id number] 10/19/2025 10 :21 AM Jen Radford [place] [id number] 10/19/2025 10:21 AM Jen Radford PT Patient Stated Goal to go home 10/19/2025 1 0:21 AM Jen Radford PT Patient will transition from supine to sit Stand-By assistance 10/19/2025 10:21 AM Jen Radford PT Patient will transfer bed/chair Stand-By assistance 10/19/2025 10:21 AM Jen Radford PT Patient will ambulate Supervision;distan ce (in feet) 10/22/2025 12:09 PM Jen Radford PT Patient will go up / down stairs Will tolerate assessment 10/19/2025 10:21 AM Jen Radford PT Collaborated with Patient 10/19/2025 10: 21 AM Jen Radford PT * Goals Question Answer Date of Assessment Author Patient will complete supine to sit in prep for ADLs Will tolerate assessment 10/19/2025 10:59 AM Lary Oscar OT Patient will complete functional chair transfer Stand-by assistance 10/19/2025 10:59 AM Lary Oscar OT Patient will complete toilet transfer Will tolerate assessment 10/19/2025 10:59 AM Lary Oscar OT Patient will complete grooming task Stand-by assistance 10/19/2025 10:59 AM Lary Oscar OT Patient will complete lower body dressing Moderate assistance 10/19/2025 10:59 AM Lary Oscar OT Long-Term Goal Pt will tolerate a bathing assessment 10/19/2025 10:59 AM Lary Oscar OT termite exterminator goal to be met in 2 weeks 10/19/2025 10:59 AM Lary Oscar OT Patient will complete toileting Will tolerate assessment 10/19/2025 10:59 AM Lary Oscar OT Patient stated goal to go home 10/19/2025 1 0:59 AM Lary Oscar OT Goals to be met in 1 week 10/19/2025 10 :59 AM Lary Oscar OT Collaborated with Patient 10/19/2025 10: 59 AM Lary Oscar OT * Dysphagia Risk Factors Question Answer [...] Aspiration Screen result Proceed and complete the Edilson 10/18/2025 7:00 PM Anne Taveras RN * WAGGONER DYSPHAGIA SCREEN Question Answer Date of Assessment Author Waggoner Dysphagia Screen Pass 10/18/2025 7:00 PM Anne Taveras, SILVIO * Risk Results Question Answer Date of Assessment Author Risk Results A: Begin PO diet/med s, no POST ANESTHESIA ROOM NURSE consult 10/18/2025 7:00 PM Anne Taveras, SILVIO * Respiratory Vitals Question Answer Date of Assessment Author Mean Airway Pressure 5.9 10/18/2025 7:50 AM Teresa Kamara RRT Spont TV 902 10/18/2025 7:50 AM Teresa Ren RRT Ve 6.9 10/18/2025 7:50 AM Teresa Ren RRT * P.O. Intake Question Answer Date of Assessment Author Percent Meals Eaten (%) 90 10/22/2025 10:00 AM Charbel Cheatham RN * Patient's Post-Discharge Goals Question Answer Date of Assessment Author Patient's Post-Discharge goals Discharge safely to home 10/22/2025 12:23 PM Citlaly Potter RN * Calculated Energy Needs Question Answer Date of Assessment Author Delta St Jeor Equation (RMR) 1,730.66 10/17/2025 9:39 AM Suzanne Paulino Fluid Requirements (mL) 2,993.73 10/17/2025 9:39 A M Suzanne Paulino * PT 6 Clicks Question Answer Date of Assessment Author Help From Another Person Turning From Back to Side While Flat in Bed Without Using Siderails 3 10/22/2025 12:09 PM Jen Radford, PT Help From Another Person Moving From Lying On Back To Sitting Without Using Siderails 3 10/22/2025 12:09 PM EST Jen Mckeon, PT Help From Another Person Moving To And From Bed To Chair 3 10/22/2025 12:09 PM Jen Radford, PT Help From Another Person Standing Up From Chair Using Your Arms 3 10/22/2025 12:09 PM Jen Radford , PT Help From Another Person To Walk In Hospital Room 3 10/22/2025 12:09 PM EST Jen Mckeon, PT Help From Another Person Climbing 3-5 Steps With A Railing 3 10/22/2025 12:09 PM Jen Radford, PT PT 6 Clicks Score 18 10/22/2025 12:09 PM Jen Radford PT JH-HLM Score - Performed/Achieved 8 Walks 250 feet or more 10/22/2025 12:09 PM Jen Radford, PT * OT 6 Clicks Question Answer Date of Assessment Author Help From Another Person Eating Meals 4 03/2025 10:57 AM Lary Oscar, OT Help From Another Person Zen ing [...] Clicks Score 17 10/19/2025 10:57 AM Lary Oscar, OT * Anthropometrics Question Answer Date of Assessment Author BMI (Calculated) 35.53 10/17/2025 9:39 AM Suzanne Joiner R * Community Services at Discharge Question Answer Date of Assessment Author Home Health Care Name/Phone # post discharge [facility] ([phone]) 10/22/2025 12:24 PM Citlaly Potter RN Home Health Services Types at Discharge PT/OT/POST ANESTHESIA ROOM NURSE;Long Term 10/22/2025 12:24 PM Citlaly Potter RN Community Services at Home post discharge Home Health Care 10/22/2025 12:24 PM Citlaly Potter RN Home Health Services agency list provided Yes 10/22/2025 12:24 PM Citlaly Potter RN * Hearing/Vision/Perception Question Answer Date of Assessment Author Hearing Wears bilateral hear ing aids 10/19/2025 10:19 AM EST Mckeon, Jen, PT Baseline Vision Wears glasses all the time 10/19/2025 10:19 AM Jen Radford, PT * Right Upper Extremity Question Answer Date of Assessment Author Right UE ROM Grossly WFL as obser princess during functional activities 10/19/2025 10:56 AM EST StroNew banksa, OT Right UE Strength Grossly WFL (at leas t 3+/5) as observed during functional activities 10/19/2025 10:56 AM EST Strodarren Lary, OT Right UE Muscle Tone Normal 10/19/2025 10:56 AM EST Strohm, Lary, OT Right Hand Function Grossly WFL as obser princess during functional activity 10/19/2025 10:56 AM EST Strodarren Lary, OT * Left Upper Extremity Question Answer Date of Assessment Author Left UE ROM Grossly WFL as obser princess during functional activities 10/19/2025 10:56 AM EST Strodarren Lary, OT Left UE Strength Grossly WFL (at leas t 3+/5) as observed during functional activities 10/19/2025 10:56 AM EST Strodarren, Lary, OT Left UE Muscle Tone Normal 10/19/2025 10:[address] StroNew banksa, OT Left UE Hand Function Grossly WFL as obs erved during functional activites 10/19/2025 10:56 AM New Oscara, OT * Upper Extremity Question Answer Date of Assessment Author UE Assessment Defer to OT evaluati on for formal assessment 10/19/2025 10:19 AM Jen Radford, PT * Lower Extremity Question Answer Date of Assessment Author LE Assessment Strength WFL (at dimple st 3+/5) as observed during functional activity 10/19/2025 10:19 AM Jen Radford, PT * Justification for DME ordered Question [...] 1 person assist 10/19/2025 10:22 AM Jen Radford, PT Equipment/ Precautions needed Requires assistive device;use gait belt 10/19/2025 10:22 AM EST Jen Mckeon, PT Requires Assistive Device Rolling walker 10/19/2025 10:22 AM EST Jen Mckeon, PT * Goals Met Question Answer Date of Assessment Author Goals Met Sit to stand;Gait 10/22/2025 12:09 PM EST eJn Mckeon, PT * Bed Mobility Question Answer Date of Assessment Author Sit to Supine Minimal assistance;t owards the left;head of bed flat;increased time to complete task 10/19/2025 10:56 AM Lary Oscar OT * Balance Question Answer Date of Assessment Author Sitting - Static Stand by Assistance 10/19/2025 10:56 AM Lary Oscar, OT Sitting-Dynamic Contact Guard Assistance 10/19/2025 10:56 AM Lary Oscar, OT Standing-Static Contact Guard Assistance;With Assistive Device 10/19/2025 10:56 AM Lary Oscar, OT Standing-Static Assistive Device Rolling walker 10/19/2025 10:56 AM Lary Oscar, OT Standing-Dynamic Contact Guard Assistance;With Assistive Device 10/19/2025 10:56 AM Lary Oscar, OT Standing-Dynamic Assistive Device Rolling walker 10/19/2025 10:56 AM Lary Oscar, OT * CPOT Question Answer Date of [...] (See MAR) 10/18/2025 4:0 0 AM Kira Chandler, SILVIO * Supplemental Oxygen Question Answer Date of Assessment Author Supplemental Oxygen None (Room air) 10/19/2025 10:56 A M EST Strohm, Lary, OT * Functional Status Score- ICU Question [...] Level Oriented X4 10/22/2025 12:08 PM Jen Radford, PT * Mobility: AM-PAC/-HLM Question Answer Date of Assessment Author Help [...] 12:00 PM Charbel Cheatham RN Translation to [facility] 5 10/22/2025 12:00 PM Charbel Cheatham RN [facility] Score - Performed/Achieved Goal (Y/N) No 10/22/2025 12:00 PM Charbel Cheatham RN Early Mobility/Exercise Safety Screen (Med/Surg) Proceed with mobilization - No exclusion criteria met 10/22/2025 12:00 PM Charbel Cheatham RN Early Mobility/Exercise Safety Screen (ICU) Proceed with mobilization - No exclusion criteria met 10/22/2025 12:00 PM Charbel Cheatham RN Goal [facility] 5 Standing (1 or mor e minutes) 10/22/2025 12:00 PM Charbel Cheatham RN * Oxygen Therapy Question Answer [...] Date of Assessment Author Last BM Date [id number] 10/22/2025 8:00 AM Charbel Snyder RN * [...] RUE Full movement 10/22/2025 8:01 AM Charbel Cheatham [...] Number of breaths 10 10/22/2025 11:25 AM EST Nate Wolfe, [employer]ER [employer] Sputum Present 10/22/2025 11:25 AM EST Nate Tovar, [employer] Treatment Tolerance Tolerated well 10/22/2025 11:25 AM EST Nate Wolfe, F[employer]ER [employer]ER Pulm Vol Expansion Goal 1250 10/22/2025 11:25 AM EST Nate Wolfe, F[employer]ER Pulm Vol Expansion Achieved [id number] 10/22/2025 11:25 AM EST Nate Wolfe , F[employer]ER [employer]ER * Balance Question Answer Date of Assessment Author Standing-Static Assistive Device Rolling walker 10/22/2025 12:08 PM EST Jen Mckeon, PT Standing-Dynamic Assistive Device Rolling walker 10/22/2025 12:08 PM Jen Radford, PT Sitting - Static Supervision 10/22/2025 12:0 8 PM EST Jen Mckeon, PT Sitting - Dynamic Supervision 10/22/2025 12: 08 PM Jen Radford, PT Standing - Static Stand-by assistance;With Assistive Device 10/22/2025 12:08 PM Jen Radford, PT Standing - Dynamic Stand-by assistance;Contact Guard Assistance;With Assistive Device 10/22/2025 12:08 PM EST Jen Mckeon, PT * Bed Mobility Question [...] Weight 10/17/2025 9:39 AM EST Suzanne Dupree * Sensation Question Answer Date of Assessment Author Overall Sensation Patient denies any numbness/ tingling in BUE's/ BLEs 10/19/2025 10:19 AM EST Jen Mckeon, PT * Nutrition Prognosis Question Answer Date of Assessment Author Follow-Up Date for Monitoring 10/26 high liver edu done 10/22/2025 10:00 AM Oskar Obrien, RD * Discharge Planning Question Answer Date of Assessment Author Support Systems Spouse/significant other 10/17/2025 11 :47 PM Kira Chandler, RN * Home Living Question Answer Date of Assessment Author Lives With Spouse 10/19/2025 9:09 AM EST Lary Lobo, OT * Prior Function Question Answer Date of Assessment Author Leisure Activities fishing, play with grandkids 10/19/2025 9:09 AM EST Lary Ding, OT Functional Mobility Independent ( no assistive device) 10/19/2025 9:09 AM EST Lary Ding, OT Receives Help From None needed prior to admission 10/19/2025 9:09 AM EST New Dinga, OT Leisure Hobbies-yes (Comment) 10/19/2025 9:09 AM EST New Dinga, OT ADL Assistance Independent 10/19/2025 9:[address] ohLary white, OT IADL Assistance Independent 10/19/2025 9:[address] Lary olguin, OT * Recommendation Question Answer Date of Assessment Author Recommendation Home PT 10/19/2025 10:22 AM EST Jen Guzman, PT Equipment Recommended Rolling walker 10/19/2025 10:22 AM EST Jen Mckeon, PT * Recommendation Question Answer Date of Assessment Author Tub Transfer Bench Justification Patient is at risk to fall in shower environment;Patient has decreased activity tolerance requiring use of seat during bathing tasks 10/19/2025 10:59 AM EST Lary Ding, OT Equipment Recommendations Tub Transfer Bench 03/2025 10:59 AM EST Lary Ding, OT Recommendation Home OT 10/19/2025 10:59 AM EST Lary Ding, OT * Assessment Question Answer Date of Assessment Author Assessment Decreased IADLs;Decreased Functional Mobility;Decreased activity tolerance;Decreased Balance;Decreased ADL status;Decreased self-care transfers 10/19/2025 10:57 AM EST Lary Ding, OT Prognosis for OT goals Good 10:57 AM EST Lary Ding, OT * Plan Question Answer Date of Assessment Author Treatment Interventions ADL retraining;Activity Tolerance training;Patient/Fam perla training;Therapeutic Activity;Excercise;C ompensatory technique education;Functional transfer training;Continued evaluation;Equipment eval/education 10/19/2025 10:59 AM Lary Oscar OT OT Frequency during hospitalization minimum 3x/week 10/19/2025 10:59 AM EST Lary Ding, OT * Patient Suicide Screen Question Answer Date of Assessment Author Over the past 2 weeks, have you felt down,depressed, or hopeless? No 10/17/2025 11:48 PM Kira Chandler RN In your lifetime,have you ev er attempted to kill yourself? No 10/17/2025 11:48 PM Kira Chandler RN * Safe Environment Question Answer Date of Assessment Author Arm Bands On ID;Allergies 10/17/2025 9:39 AM EST Lelo osborn, Yvette Cantrell RN * Mobility Question Answer Date of [...] FEMALE 59.3 10/17/2025 9:3 9 AM Suzanne aPulino * Assessment Question Answer Date of Assessment [...] 2 10/17/2025 11:46 PM Kira Chandler RN POST ANESTHESIA ROOM NURSE Evaluation Needed 2 10/17/2025 11:46 PM Kira [...] placement 10/19/2025 10:19 AM Jen Radford PT Sit to Stand Assistive Device Rolling walker 10/19/2025 10:19 AM EST Jen Mckeon, PT Stand to Sit Assistive Device Rolling walker 10/19/2025 10:19 AM EST Jen Mckeon PT * Skip to questions 9-10? Answer Date of Assessment Author 1 10/17/2025 11:44 PM Kira Chandler RN * Anthropometrics Question Answer Date of Assessment Author Weight Change 0 10/17/2025 9:39 AM EST Fransisco reyes Suzanne R * Comprehensive Pain Assessment (with every [...] RN Skin Condition/Temp Warm;Dry 10/22/2025 8:00 AM ES Charbel Raya RN Skin Integrity Surgical wound 10/22/2025 8:00 [...] RN Feature 4: Disorganized Thinking No 10/22/20 12:00 PM Charbel Cheatham RN Overall CAM-ICU Negative 10/22/2025 12:00 PM Charbel Weir RN * Bell Coma Scale Question Answer Entry Date Author Eye Opening 4 10/22/2025 8:00 AM Charbel Snyder RN Best Motor Response 6 10/22/2025 8:00 AM Charbel Do RN Best Verbal Response 5 10/22/2025 8:00 AM Charbel Agee RN Bell Coma Scale Score 15 10/22/2025 8:00 AM Charbel Cheatham RN * Cognition Question Answer Entry Date Author Overall Cognitive Status WFL 025 10:18 AM EST Jen Mckeon, PT Cognitive Assessment Orientation Level;Arousal/ Alertness;Behavior;Follow ing Commands;Safety Judgment;Insight 10/19/2025 10:18 AM EST Jne Mckeon, PT Behavior Appropriate;Cooperat silverio;M otivated 10/22/2025 12:08 PM EST Jen Mckeon, PT Arousal/Alertness Alert 10/22/2025 12: 08 PM EST Jen Mckeon, PT Following Commands Follows all commands and directions without difficulty 10/22/2025 12:08 PM EST Jen Mckeon, PT Safety Judgment Good awareness of sa fety precautions 10/22/2025 12:08 PM EST Richard Mckeonthi, PT Insight Demonstrated intact insight into limitation [...] Date Author BP 123/86 10/22/2025 2:00 PM Chabrel Snyder RN Pulse 74 10/22/2025 2:00 PM Charbel Snyder RN Resp 15 10/22/2025 2:00 PM Charbel Snyder RN * Neurological Question Answer Entry Date Author Level of Consciousness Alert 8:00 AM Charbel Cheatham RN Cognition Ability to abstract;Appropriate judgement;Appropriate safety awareness;Appropriate attention/concentration;Ap propriate for developmental age;Follows simple commands 10/22/2025 8:00 AM Chabrel Cheatham RN Neuro ([facility]) [facility] 10/22/2025 8:00 AM EST Charbel Ji RN Neuro Symptoms None 10/22/2025 8:00 AM EST Charbel Ji RN * Psychosocial Question Answer Entry Date Author Patient Behaviors/Mood Calm;Cooperative 10/22/2025 8:0 0 AM EST Charbel Ji RN * Neurological Question Answer Entry Date Author Neuro ([facility]) WD 10/17/2025 9:39 AM EST Yvette Orellana RN [...] RASS -1 to +1 10/17/2025 10:45 PM EST Duarte El MD * A = Assess, Prevent and Manage Pain Question Answer Entry Date Author Pain Assessment No/denies pain 10/22/2025 12:00 PM Charbel Cheatham RN documented in this encounter Discharge Summaries * LAISHA Hernandez - 10/22/2025 1:32 PM EST [facility] Inpatient Discharge Summary Patient: David Serrano Age: 65 y.o. CSN: [id number] Date of Admission: 10/17/2025 Date of Discharge: [...] Case IDs Date Procedure Surgeon Location Status [id number] 10/17/25 TRANSPLANT LIVER Vani Winkler MD OR Comp Lines and tubes: Patient Lines/Drains/Airways Status Active LDAs None Other Procedures / Pertinent Imaging: See Imaging Tab Consulting Services (include reason) SICU PT/OT Corrections Identification Technician Allergies Allergies[1] Discharge Medications Medication List TAKE [...] scale: Blood glucose 150-199 mg/dL =1units, Blood vkonkdi512-723 mg/dL =2 units, Blood glucose 250-299 mg/dL [...] Your Medications These medications were sent to [facility] [address] [facility] [address] Hours: Wednesday - Wednesday: 8:00AM - 6:00PM [...] tablet pen needle, diabetic 32 gauge x / Ndle phosphorus 250 mg tablet polyethylene glycol [...] prn. Discharged on a bowel regimenas needed. [facility] - PT/OT evaluated patient and recommended home PT/OT. ENDO - A1C is 4.0. Pt was not on diabetic regimen prior to arrival. Patient developed steroid-induced hyperglycemia 2/2 steroid regimen. Discharged home on the following regimen: LDSSI. Patient met w/ paraeducator prior to discharge. [facility]EME - Post-operatively, monitored [...] home care (to start 10/[address] [facility] staffing, outpatient labs this week). Labs to be drawn qMon/Thurs. Patient and family received post-transplant education from dining room coordinator as well as medication teaching from [...] Gelatein Plus- clear thickened, gelatin high protein ([facility] and [facility] only) As listed above 4. Discharge specific orders: None required 5. Core measures followed: (if this is a core measure patient) Discharge Weight: 220 lb (99.8 kg) Disposition Home with assistance Home with supervision Home with Home Health Follow-Up Appointments Future Appointments Date Time Provider Department Center 10/30/2025 9:00 AM [facility]ERY, [facility] [address] [facility] [address] Signed: LAISHA HERNANDEZ 10/22/2025, 1:32 PM [1] [...] Zimmerman RN - 10/22/2025 12:26 PM EST [facility] Care Management Discharge Summary Patient name: David Serrano Patient : 1960 Age: 65 y.o. Gender: male Patient emergency contact: Extended Emergency Contact Information Primary Emergency Contact: Stacy Serrano [address]: [address] [place] [address] Mobile Relation: Spouse Attending provider: Vani Winkler MD Primary care physician: PROVIDER NOT IN SYSTEM The MD has indicated that the patient is ready for discharge. David Serrano was referred and accepted at [facility] ([phone]) for PT/OT and SN (lab draws) . [...] Services at Home post discharge: [facility] Name/Phone # post discharge: [facility] ([phone]) Home Health Services Types at Discharge: PT/OT/POST ANESTHESIA ROOM NURSE, Long Term (usp for lab draws.) Citlaly Zimmerman RN/CM [phone] documented in this encounter Discharge Instructions * [...] up appointments. Diet: Regular diet Drain/Dressing/Wound Care: Jeannette will be removed in clinic approximately 3-4 [...] kept under 2 gm/day. Please discuss withyour senior project coordinator if you have any question about appropriate dose to take. Other Instructions: Call post-liver transplant clinic with questions [phone] or call [facility] at [phone] and ask for the liver dining room coordinator solutions specialist if you experience any of the [...] Date and time as instructed by your dining room coordinator in liver transplant clinic in [facility], 3rd floor or Video Visit. PLEASE GET [...] Immunosuppression schedule as per Education Note by dining room coordinator earlier this admission. Reviewed discharge medications [...] in clinic? (If significant deficits, communicate with dining room coordinator): Standard continual education Future medications to [...] Cori Womack PharmD Solid Organ Transplant Clinical Career Services Representative Contact via Epic Secure Chat * Cori Womack PharmD - [...] Cori Womack PharmD Solid Organ Transplant Clinical Career Services Representative Contact via Brigade Secure Chat * Jen Mcekon, PT - 10/22/2025 12:10 PM EST Physical Therapy Treatment Name: David Serrano : 1960 Attending Physician: Vani Winkler MD Admission Diagnosis: TRANSPLANT LIVER Date: 10/22/2025 Room: [place] [address]/[place] [address] Reviewed Pertinent hospital course: Yes Hospital Course [...] Long-term goal to be met by: 11/02/25 Long-Term Goal : =STG Patient/Family Education Educated patient [...] TRANSPLANT LIVER; Surgeon: Vani Winkler MD; Location: [facility]; Service: Transplant; Laterality: N/A; [1] Patient Active Problem List Diagnosis Alcoholic cirrhosis (CMS-HCC) Ascites Hepatic encephalopathy (CMS-HCC) Esophageal varices (CMS-HCC) Pre-transplant evaluation for chronic liver disease Encounter for pre-transplant evaluation for liver transplant * Leticia Lomeli MD - 10/22/2025 7:07 AM EST Transplant Surgery Progress Note Name: David Serrano [facility]: [id number] Date: 10/22/2025 7:07 AM OR Date: 10/17/2025 [...] v discharge LETICIA LOMELI MD Transplant Surgery [facility] Surgery Resident Cosigned by Vani Winkler MD [...] Surgery Progress Note Name: David Serrano CSN: [id number] Date: 10/21/2025 6:26 AM OR Date: 10/17/2025 [...] ON 10/25/2025] predniSONE 20 mg Oral Daily 09 mycophenolate 500 mg Oral BID pantoprazole 40 mg Oral DAILY 599 pantoprazole (PROTONIX) IV 40 mg Intravenous DAILY 06 sulfamethoxazole-trimethoprim 1 tablet Oral Daily 09 tacrolimus 3 mg Oral BID Continuous Infusions: [...] - regular diet - Encourage ambulation 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, ligated renal vein requiring duodenal manipulation Transaminitis s/p NAC - MMPC - LFTs - pred taper, cellcept - tac 01/15 - Advance diet as tolerated, Regular diet Acute hypoxic respiratory failure-improving - extubated 10/18 - sating well on RA PPX: SQH, SCD, PPI Dispo: Floor KEITH JUSTIN MD Transplant Surgery [facility] Surgery Resident Cosigned by aVni Winkler MD at 10/30/2025 12:49 PM EST [...] Surgery Progress Note Name: David Serrano CSN: [id number] Date: 10/20/2025 6:42 AM OR Date: 10/17/2025 [...] Date 10/19/25 07 - 10/20/25 0659 10/20/25 0700 - 10/21/25 0659 Shift 5611-5807 8380-7052 4114-5582 24 Hour Total 9764-7580 0876-4668 7101-9347 24 Hour Total INTAKE P.O. 100 100 P.O. 100 100 I.V.(mL/kg) 552.9(5.5) 552.9(5.5) Volume (mL) Insulin 7.4 7.4 Volume (mL) (electrolyte-R (pH 7.4) (NORMOSOL-R pH 7.4) IV solution) 545.5 545.5 NG/GT 30 30 Flushes (mL) ([REMOVED] NG/OG Tube Nasogastric Right nostril) 30 30 IV Piggyback 150.3 150.3 Volume (mL) (AMPicillin 1 g in sodium chloride 0.9% 100 mL IVPB (Usli6Tor)) 100 100 Volume (mL) (mycophenolate (CELLCEPT) 500 [...] 3.6 3.6 CL 113* 113* 110 CO2 25 BUN 32* 38* 46* CREATININE 1.09 1.16 [...] in this interval not displayed. Recent Labs 10/18/250 10/19/25 0829 10/19/25 2303 AST 717* 450* 223* ALT 792* 725* 569* BILITOT 1.0 1.0 1.0 BILIDIRECT 0.51* 0.44* 0.48* ALKPHOS 62 65 68 ALBUMIN 2.1* 2.1* 2.2* 2.2* 2.2* 2.2* Recent Labs 10/18/25221910/19/25 0829 10/19/25 2303 INR 1.8* 1.5* 1.4* [...] later today LETICIA LOMELI MD Transplant Surgery [facility] Surgery Resident Cosigned by Vani Winkler MD [...] the Caprini Risk Score of 10 and [facility] transplant protocol, I recommend discharging on heparin 5,000 units subcutaneously q8h (facility) or Eliquis 2.5 mg PO BID (home) for 30 days total. Endof chemoprophylaxis: 11/17/25. Cori Womack PharmD Solid Organ Transplant Clinical Career Services Representative Contact via Brigade Secure Chat * Leticia Lomeli MD - 10/19/2025 12:10 PM EST Transplant Surgery Progress Note Name: David Serrano CSN: [id number] Date: 10/19/2025 12:10 PM OR Date: 10/17/2025 [...] Line BP: (138-164)/(64-87) 160/79 I/O: Date 10/18/25 0700 - 10/19/25 0659 10/19/25 0700 - 10/20/25 0659 Shift 8184-8470 7510-9842 7006-7035 24 Hour Total 2924-5224 6569-0103 9097-2887 24 Hour Total INTAKE P.O. 50 50 [...] in sodium chloride 0.9% 100 mL IVPB (Sfhk1Iuv)) 100 200 100 400 Volume (mL) (mycophenolate [...] Output (mL) (IUC (Iniguez) 16 Fr.) 570 256 811 0784 260 260 Emesis/NG output 200 200 Drainage [...] this interval not displayed. Recent Labs 10/18/25 1747 10/18/25 22210/19/25 0829 AST 965* 717* 450* ALT 871* 792* 725* BILITOT 1.1 1.0 1.0 BILIDIRECT 0.56* 0.51* 0.44* ALKPHOS 61 62 65 ALBUMIN 2.2* 2.2* 2.1* 2.1* 2.2* 2.2* Recent Labs 10/18/25 1747 10/18/25 2220 10/19/25 0829 INR 1.8* 1.8* 1.5* [...] later today LETICIA LOMELI MD Transplant Surgery [facility] Surgery Resident Cosigned by Vani Winkler MD [...] Admission Diagnosis: TRANSPLANT LIVER Date: 10/19/2025 Room: [address] Reviewed Pertinent hospital course: Yes Hospital Course [...] will complete lower body dressing: Moderate assistance Driver Service Technician Goal : Pt will tolerate a bathing assessment [facility] goal to be met in: 2 weeks [...] TRANSPLANT LIVER; Surgeon: Vani Winkler MD; Location: [facility]; Service: Transplant; Laterality: N/A; [1] Patient Active Problem List Diagnosis Alcoholic cirrhosis (CMS-HCC) Ascites Hepatic encephalopathy (CMS-HCC) Esophageal varices (CMS-HCC) Pre-transplant evaluation for chronic liver disease Encounter for pre-transplant evaluation for liver transplant * Jen Mckeon, PT - 10/19/2025 10:24 AM EST Physical Therapy Initial Assessment Name: David Serrano : 1960 Attending Physician: Vani Winkler MD Admission Diagnosis: TRANSPLANT LIVER Date: 10/19/2025 Room: [place] [address]/[place] [address] Reviewed Pertinent hospital course: Yes Hospital Course [...] Long-term goal to be met by: 11/02/25 Long-Term Goal : =STG Patient/Family Education Educated patient [...] Surgery Progress Note Name: David Serrano CSN: [id number] Date: 10/18/2025 12:58 PM OR Date: 10/17/2025 [...] 10/17/25699 - 10/18/2565810/18/25699 - 10/19/25 0659 Shift 0377-7689 4511-3616 6542-1286 24 Hour Total 5251-2326 5912-2691 3366-9319 24 Hour Total INTAKE I.V.(mL/kg) 8000(80.2) 394.1(3.9) [...] 30 60 30 30 IV Piggyback 120 741 199 3503 62.6 62.6 Volume (mL) (methylPREDNISolone sodium succinate (SOLU-medrol) 500 mg in sodium chloride 0.9 % 100 mL IVPB) 100 100 Volume (mL) (AMPicillin 2 g in sodium chloride 0.9% 100 mL IVPB (Intl6Hwr)) 100 200 300 Volume (mL) (albumin human bottle 5%) 500 500 Volume (mL) (albumin human bottle 25%) 50 50 Volume (mL) (AMPicillin 1 g in sodium chloride 0.9% 100 mL IVPB (Turc4Gvn)) 97.4 97.4 Volume (mL) (mycophenolate (CELLCEPT) 500 [...] IV Push) 20 20 Shift Total(mL/kg) 120(1.2) 86140(138.6) 1105.1(11.1) 17728.1(150.9) 143.4(1.4) 143.4(1.4) OUTPUT Urine(mL/kg/hr) 1850(2.3) 1000(1.3) 2850(1.2) [...] 2 Abdomen Inferior;Lateral;Left) 100 300 400 Blood 82361 31504 Est Blood Loss 32056 38532 Shift Total(mL/kg) 01276(130.5) 1550(15.5) 54900(146.1) 355(3.6) 355(3.6) Weight (kg) 99.8 99.8 99.8 [...] 3.4* 3.9 CL 110 111* 114* CO2 25 BUN 17 22 26* CREATININE 0.79 [...] EXAM: US ABDOMEN LIMITED EXAM: US DUPLEX QUE-POXKYN-CKIMPQM COMPLETE INDICATION: Post-op liver transplant Day 1 [...] at 10/18/2025 9:53 AM EST US Duplex Ted-Xtn-Khomuqn Comp Result Date: 10/18/2025 EXAM: US ABDOMEN LIMITED EXAM: US DUPLEX VPA-QCIMBR-DNAABYC COMPLETE INDICATION: Post-op liver transplant Day 1 [...] below level of diaphragms and outside the vxrqp-to-qznb. Right internal jugular approach pulmonary artery catheter [...] Dispo: SICU LETICIA LOMELI MD Transplant Surgery [facility] Surgery Resident Cosigned by Vani Winkler MD [...] Cori Womack PharmD Solid Organ Transplant Clinical Career Services Representative Contact via Brigade Secure Chat * Karen Washington RRT - 10/18/2025 5:32 AM EST SBT started at 0435 completed at 0520 Patient on +5 and 40% RR: 7-12 Vt: 679-940 RSBI: 10-12 AB.34/48/84/25 Patient placed on Delta 5 post SBT documented in this encounter H&P Notes * Aspen Parr MD - 10/17/2025 10:27 AM EST Transplant Surgery History and Physical Patient: David Serrano [facility]: [id number] History CC: ESLD HPI: David Serrano is [...] Resource Strain: Low Risk (06/15/2025) Received from [facility] Overall Financial Resource Strain (CARDIA) How hard is it for you to pay for the very basics like food, housing, medical care, and heating?: Not hard at all Food Insecurity: No Food Insecurity (06/15/2025) Received from [facility] Hunger Vital Sign Within the past 12 months, you worried that your food would run out before you got the money to buymore.: Never true Within the past 12 months, the food you bought just didn't last and you didn't have money to get more.: Never true Transportation Needs: No Transportation Needs (06/15/2025) Received from [facility] PRAPARE - Transportation In the past 12 months, has lack of transportation kept you from medical appointments or from getting medications?: No In the past 12 months, has lack of transportation kept you from meetings, work, or from getting things needed for daily living?: No Physical Activity: Inactive (06/15/2025) Received from [facility] Exercise Vital Sign On average, how many days per week do you engage in moderate to strenuous exercise (like a brisk walk)?: 0 days On average, how many minutes do you engage in exercise at this level?: 0 min Stress: No Stress Concern Present (06/15/2025) Received from [facility] [place] [facility] Occupational [facility] - Occupational Stress Questionnaire Do you feel stress - tense, restless, nervous, or anxious, or unable to sleep at night because yourmind is troubled all the time - these days?: Only a little Social Connections: Socially Integrated (06/15/2025) Received from [facility] Social Connection and Isolation Panel In a typical week, how many times do you talk on the phone with family, friends, or neighbors?: More than three times a week How often do you get together with friends or relatives?: More than three times a week How often do you attend gnosticist or orthodoxy services?: More than 4 times per year Do you belong to any clubs or organizations such as gnosticist groups, unions, fraternal [...] Housing Stability: Low Risk (06/15/2025) Received from [facility] Housing Stability Vital Sign In the last 12 months, was there a time when you were not able to pay the mortgage or rent on time?: No In the past 12 months, how many times have you moved where you were living?: 0 At any time in the past 12 months, were you homeless or living in a intermediate (including now)?: No FH: No family history [...] admitted to SICU post-op. ASPEN PARR MD [facility] Surgery Liver Transplant Pager: [phone] 10:28 AM 10/17/2025 Cosigned by Vani [...] Name: David Serrano Date: 1960 Billing #: [id number] Date of Procedure: 10/17/2025 Diagnosis: Chronic Hepatic [...] branch patch. Ligation of left renal vein. Pooh-he-iqjw anastomosis performed without stent. Portal Flow Modulation [...] donor was ABO O and UNOS ID [id number], [place] [id number]. This was a 56 yearold brain donor [...] available help, Dr. Nugent served as assistant community director surgeon. Procedure: Back bench preparation of donor [...] After completion of the outflow anastomosis, a Cameroonian clamp was placed across the donor suprahepatic [...] artery flows were then measured with the [employer] device. The portal flow was 840 and [...] no further bleeding, we then performed a hqap-wx-hfhh anastomosis. There was no stent placed. This [...] Name: David Serrano Date: 1960 Billing #: [id number] Date of Procedure: 10/17/2025 Diagnosis: Chronic Hepatic Failure without coma Procedure: 1. Back Bench Preparation Donor Liver Attending surgeons: Felice Nugent III, MD Nutrition Professor Surgeon(s): Morena Haley MD Indications for Procedure: This is a 65 y.o.-year-old male who has alcohol and A1AT liver disease and chronic liver failure complicated by ascites and HE with a MELD score of 20. A donor organ became available. This donor was ABO O and UNOS ID [id number], [place] [id number]. This was a 56 yearold brain donor [...] MD Giulia Bencini, MD Anesthesia: General Staff: Ground Services Instructor: Mita Hernandez RN; Aspen Coleman RN Relief Ground Services Instructor: Claritza Mckinnon RN; Jonatan De La O RN; Clair Sanders RN Scrub Person: Samson Mcbride RN Fellow: Chelsie Haley MD Float: Nadia Woodruff RN; Jyotsna Singleton RN; Farzana Hamilton; Lizz Cota RN Resident: Aspen Parr MD Estimated Blood Loss: 11 L Specimens: [place] liver and gallbladder Left liver core needle biopsy Right liver core needle biopsy Peritoneal fluid for culture Drains: Drain 1 Abdomen Inferior;Lateral;Right (Active) Number of days: 0 Drain 2 Abdomen Inferior;Lateral;Left (Active) Number of days: 0 IUC (Iniguez) 16 Fr. (Active) Number of days: 0 Transplant-Specific Information UNOS ID: [id number] Cross-clamp: 10/17/25 1250 Out of ice: 10/17/25 [...] 1:42 PM ESTAssociated Order(s): IP CONSULT TO DESIGN ENGINEER [facility] Transplant Discharge Education Note Assessment: Received referral [...] 4 - Demonstrates understanding/competency Naomy Gomes RN, MSN,[facility] Diabetes Education Office [phone] Schedule: M-F 8:00am-4:30pm * Oskar Arango RD - 10/22/2025 9:08 AM EST TXP - Follow-up [facility] Medical Nutrition Therapy Reason(s) for Completion: Physician/Nursing [...] Gelatein Plus- clear thickened, gelatin high protein ([facility] and [facility] only) PO Meal Intake: Pt currently not taking any PO Appetite: [place] Estimated Nutrition Needs This Admission: No Feeding: Able to feed self Estimated Nutrition Needs (needs based on DBW of 70.4 kg) Kcals/day: 1243-5511 (25-30 kcal/kg) Protein g/day: 105-140 (1.5-2.0 g/kg) [...] TRANSPLANT LIVER; Surgeon: Vani Winkler MD; Location: [facility]; Service: Transplant; Laterality: N/A; Scheduled Meds: acetaminophen [...] Dietitian - Solid Organ Transplant Contact via Brigade Chat [1] Allergies Allergen Reactions Lisinopril Other (See Comments) * Citlaly Zimmerman RN - 10/19/2025 1:50 PM EST HEALTH Care Management/Social Work Assessment Patient Information Patient Name: David Serrano Hospital Day: 2 Inpatient/Observation: Inpatient Admit Date: 10/17/2025 Admission Diagnosis: TRANSPLANT LIVER Attending provider: Vani Winkler MD PCP: PROVIDER NOT IN SYSTEM Home Pharmacy: [facility] - [place], [place] - [address] [place] [address] [facility] [address] [facility] [address] [facility] [address] [facility] [address] [facility] [address] [facility] [address] Pertinent Medications Anticoagulation therapy: Yes Anticoagulant (Name of Drug): hosptial herparin protocol New Diabetic: No Issues related to obtaining medications: N/A Payor Information Medical Insurance Coverage: Payor: NANCY / Plan: [facility] ACCESS / Product Type: PPO / Secondary [...] children and their names: Stanley- Lan Serrano ([phone]) and Gloria Makenzie ([phone]) Relative Search Completed: Yes Demographics Correct:: Yes [...] Was any abuse reported by patient?: No [place] Status & Connection to [facility] Services [place] Status & Connection to [facility] Services Are you a ?: No Support Systems Emergency contact: Extended Emergency Contact Information Primary Emergency Contact: Stacy Serrano Address: [address] [place] [address] Mobile Relation: Spouse Support Systems Legal Status: HCPOA Name of Guardian/POA/ Payee and Phone Number: Stacy Kiesha ([phone]) Primary Caregiver: Self, Spouse Caregiver name/phone number: Stacy Kiesha ([phone]) Times of available support: Total 24/7 hands on (add comment) (Daughter and Friend willing to assist in pt post op care.) Marital Status: Number of children and their names: 1- Lan Serrano ([phone]) and Gloria Banegas ([phone]) Relative Search Completed: Yes Demographics Correct:: Yes [...] living with spouse in a home in [place], [place]. Pt reports ~2 steps into residence and 0 inside residence. Pt reports having 2 children- Lan Serrano ([phone]) and Gloria Banegas ([phone]). Pt denies any concerns for safety or [...] Stacy Serrano. LNOK and HCPOA: Stacy Roach ([phone]) PCP: Myles Mosley Transportation: family Advance Directives (For Healthcare) Advance Directive: Patient has advance directive, copy in chart Type of Healthcare Directive: Durable power of insurance attorney for health care Healthcare Agent Appointed: [...] interest(s) are disclosed as appropriate. 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 Full dose is 1g IV q6h Use Wczl4Gik Adapter - Mix Thoroughly Before Administration Notes to Pharmacy: On food and beverage order clerk estimated creatinine clearance is 101.9 mL/min [...] Best Verbal Response: 5,Best Motor Response: 6 Bell Coma Scale Score: 15 No data found. [...] iniguez PT/OT: pending. PT Recs: OT Recs: POST ANESTHESIA ROOM NURSE Recs: Dispo: Remain in SICU EVELYN GALINDO [...] Pre-op MELD 20. Intra-operative course notable for eezupnuyzl2G ascites. EBL 11L, received , 2.4L cell-saver, 8.5L crystalloid. Needed 40 lasix [...] SATURATION ARTERIAL 97 100 PF ratio: 210 [place] body weight: [place] body weight: 63.8 kg (140 lb 10.5 [...] (99.8 kg) Labs: Recent Labs 10/17/25 1018 10/17/25224910/18/25 0502 NA 141 145 146 K 3.3* 3.7 3.4* CL 110 110 111* CO2 29 27 26 CALCIUM 8.1* 8.2* 7.8* MG 1.7 1.8 2.0 PHOS 2.8 3.9 3.0 ALBUMIN 2.3* 2.3* 2.2* 2.2* 2.2* 2.2* I&Os Intake/Output Summary (Last 24 hours) at 10/18/2025721 Last data filed at 10/18/2025 0700 Gross per 24 hour Intake 76263.44 ml Output 87158 ml Net 472.44 ml IVF: acetylcysteine (ACETADOTE) [...] 07) vasopressin, Last Rate: 0.03 Units/min (10/18/25 0702) [...] this interval not displayed. Lab 10/18/25 0502 10/17/25224910/17/25212310/17/25202010/17/25 192 INR POC -- -- 2.3* 2.9* 5.9* INR 2.2* 2.1* -- -- -- Lab 10/17/25224910/17/25203010/17/25 18310/17/25 1656 10/17/25 1455 FIBRINOGEN [...] 10/18/25 0205 10/18/25 0106 10/17/25 2355 10/17/25 22510/17/25224610/17/25212425 2022 12/03/25 1926 10/17/25 1823 10/17/25 1742 10/17/25 1700 [...] in sodium chloride 0.9% 100 mL IVPB (Enjt6Dqk) 1 g Every 6 hours 10/17/2025 10/19/2025 Admin Instructions: Dosage may need to be adjusted for renal dysfunction. Full dose is 1g IV q6h Use Pmsb3Qqq Adapter - Mix Thoroughly Before Administration Notes to Pharmacy: On food and beverage order clerk estimated creatinine clearance is 101.9 mL/min (based on SCr of 0.81 mg/dL). Route: Intravenous Linked Group 1: Placed in And Linked Group AMPicillin 2 g in sodium chloride 0.9% 100 mL IVPB (Wxnt2Hkn) (Completed) 2 g Once 10/17/2025 10/17/2025 Admin Instructions: Begin infusion 20-60 minutes prior to incision Use Epbq8Qmo Adapter - Mix Thoroughly Before Administration Notes to Pharmacy: On food and beverage order clerk estimated creatinine clearance is 98.3 mL/min [...] 1 PT/OT: pending. PT Recs: OT Recs: POST ANESTHESIA ROOM NURSE Recs: Dispo: Remain in SICU. DUARTE EL [...] Pre-op MELD 20. Intra-operative course notable for iyhqldqzit0J ascites. EBL 11L, received 03/19/01/15, 2.4L cell-saver, [...] 10/18/2025 0758 Gross per 24 hour Intake 85646.34 ml Output 22841 ml Net 484.34 ml SKIN/MUSCULOSKELETAL: No acute [...] Care, and Acute Care Surgery * Oskar Arango RD - 10/18/2025 7:15 AM ESTAssociated Order(s): IP CONSULT TO NUTRITION SERVICES TXP - Initial [facility] Medical Nutrition Therapy Reason(s) for Completion: Physician/Nursing [...] based on DBW of 70.4 kg) Kcals/day: 6936-0098 (25-30 kcal/kg) Protein g/day: 105-140 (1.5-2.0 g/kg) [...] net volume. Pertinent Labs: Recent Labs 10/17/25 18310/17/25192510/17/25212410/17/250 10/18/25 0502 WBC 4.8 -- -- 5.8 7.0 HGB 10.3* < > 9.0* 9.5* 9.6* HCT 30.2* < > 26.0* 27.5* 27.6* PLT 47* -- -- 52* 36* < > = values in this interval not displayed. Recent Labs 10/17/25 10110/17/25224910/18/25 0502 NA 141 145 146 K 3.3* 3.7 3.4* CL 110 110 111* CO2 29 27 26 BUN 13 17 22 CREATININE 0.81 0.79 0.93 GLUCOSE 81 225* 193* CALCIUM 8.1* 8.2* 7.8* MG 1.7 1.8 2.0 PHOS 2.8 3.9 3.0 Recent Labs 10/17/25101710/17/25224910/18/25 0502 AST 39 3,332* 2,612* ALT 27 1141* 1072* BILITOT 4.9* 4.5* 1.5 BILIDIRECT 1.35* 3.22* 0.77* ALKPHOS 143* 63 50 ALBUMIN 2.3* 2.3* 2.2* 2.2* 2.2* 2.2* Recent Labs 10/17/25183810/17/25192410/17/25212310/17/250 10/18/25 0502 INR 7.5* < > 2.3* [...] Dietitian - Solid Organ Transplant Contact via Brigade Chat [1] Allergies Allergen Reactions Lisinopril Other [...] Observed PEEP/CPAP Delta Pressure Support (cm H2O) 10/17/252237 VC-SIMV/PRVC 16 400 mL 16 cm H2O [...] 2300 80 % 10/17/25 2240 100 % 10/17/252237 100 % ABG: Lab 10/17/252249 PH ARTERIAL 7.38 PCO2 ARTERIAL 41 PO2 ARTERIAL 216* HCO3 ARTERIAL 24 BASE EXCESS ARTERIAL -0.8 O2 SATURATION ARTERIAL 100 PF ratio: 270 [place] body weight: [place] body weight: 63.8 kg (140 lb 10.5 [...] 10/17/2025 2300 Gross per 24 hour Intake 72629.34 ml Output 03057 ml Net 840.34 ml IVF: fentanyl (SUBLIMAZE) [...] A/P: No active issues. HEMATOLOGIC Labs: Lab 10/17/25224910/17/25212410/17/25202110/17/25 19210/17/25 18310/17/25 1700 10/17/25 1656 10/17/25 1559 10/17/25 [...] values in this interval not displayed. Lab 10/17/25224910/17/25 18310/17/25 1656 10/17/25 1455 10/17/25 1018 INR 2.1* [...] range: Lab 10/17/25 2247 10/17/25 2125 10/17/25 2022 10/17/25 [...] in sodium chloride 0.9% 100 mL IVPB (Wvmx1Hjn) 1 g Every 6 hours 10/17/2025 10/19/2025 Admin Instructions: Dosage may need to be adjusted for renal dysfunction. Full dose is 1g IV q6h Use Cksh2Pps Adapter - Mix Thoroughly Before Administration Notes to Pharmacy: On food and beverage order clerk estimated creatinine clearance is 101.9 mL/min (based on SCr of 0.81 mg/dL). Route: Intravenous Linked Group 1: Placed in And Linked Group AMPicillin 2 g in sodium chloride 0.9% 100 mL IVPB (Eoss0Yzt) (Completed) 2 g Once 10/17/2025 10/17/2025 Admin Instructions: Begin infusion 20-60 minutes prior to incision Use Qrvy7Qcp Adapter - Mix Thoroughly Before Administration Notes to Pharmacy: On food and beverage order clerk estimated creatinine clearance is 98.3 mL/min [...] Best Verbal Response: 5,Best Motor Response: 6 Bell Coma Scale Score: 15 No data found. [...] 1 PT/OT: pending. PT Recs: OT Recs: POST ANESTHESIA ROOM NURSE Recs: Dispo: Remain in SICU. DUARTE EL [...] Patient will remain free of falls Goal: [place] Fall Precautions Outcome: Adequate for Discharge Problem: [...] intervention. Outcome: Adequate for Discharge Problem: Non-violent, hjt-tvyf-kcuxpizjxol restraints Description: Less restrictive alternative interventions will [...] of medical procedures, or protection of medical service technician access. Outcome: Adequate for Discharge Problem: Knowledge [...] 1960 Age: 65 y.o. Gender: male SSN: [id number] Address: [address] [place] [address] Phone number: [phone] Patient emergency contact: Extended Emergency Contact Information Primary Emergency Contact: Stacy Serrano Address: [address] [place] [address] of [facility] Mobile Relation: Spouse Date of admission: 10/17/2025 Date of discharge: 10/22/2025 Attending provider: Lane Troy MD Primary care physician: PROVIDER NOT IN SYSTEM Code status: Full Code Allergies: Allergies[1] Insurance Information Insurance Information [employer] Phone: -- Subscriber: David Serrano Subscriber#: [id number] Group#: [id number] Precert#: -- Authorization#: [id number] Effective Date: -- TRANSPLANT GLOBAL/TRANS[employer]ANT [employer] Phone: -- Subscriber: David Serrano Subscriber#: [id number] Group#: -- Precert#: -- Authorization#: [id number] Effective Date: -- Diagnoses Present on Admission [...] Gelatein Plus- clear thickened, gelatin high protein ([facility] and [facility] only) Regular Diet Services Required Long Term: vital signs, med management, lab draws Physical [...] scale: Blood glucose 150-199 mg/dL =1units, Blood iltiknz244-425 mg/dL =2 units, Blood glucose 250-299 mg/dL =3 units, Blood glucose 300-349 mg/dL =4 units,Blood glucose greater than 349 mg/dL = 5 units Quantity: 15 mL Refills: 2 lancets [facility] Use to test blood sugar four times [...] Your Medications These medications were sent to [facility] [address] [place] [id number] Hours: Wednesday - Wednesday: 8:00AM - 6:00PM acetaminophen 325 MG tablet acyclovir 400 MG tablet alcohol swabs Padm blood-glucose meter [facility] calcium-vitamin D 500 mg-5 mcg (200 unit) per tablet furosemide 40 MG tablet glucose blood test strip insulin lispro 100 unit/mL Inpn lancets [facility] methocarbamoL 500 MG tablet mycophenolate 250 mg [...] Fax results to liver transplant clinic at [phone]. NURSE VISIT: Please check vitals and assess/monitor [...] effort and are for medical reasons or orthodoxy services or infrequently or short duration when for other reasons) due to deconditioning it would be a taxing effort to receive outpatient services. My signature below is to certify that this patient is under my care and that I, or nurse practitioner, or a physician assistant community director working with me, had a inab-vv-ywjl encounter with this is patient on: 10/22/2025 Follow-up Appointments and Post Hospital Discharge Physician Name Future Appointments Date Time Provider Department Center 10/30/2025 9:00 AM [facility] SURGERY, [facility] [address] [place] [id number] Discharging Physician Signature and Credentials Discharging Physician: Electronically signed by LAISHA HERNANDEZ 10/22/2025, 1:32 PM Physician to follow up Information PCP: PROVIDER NOT IN SYSTEM PCP address: None PCP phone number: None PCP fax number: None Follow-up: [facility] and their phone / fax is: [phone] / [phone] Linux Kernel Developer and Credentials Provider/Company Name and Contact Number: Community Services at Discharge Community Services at Home post discharge: Home Health [facility] Care Name/Phone # post discharge: [facility] [employer] ([phone]) Home Health Services Types at Discharge: PT/OT/POST ANESTHESIA ROOM NURSE, Long Term (usp for lab draws.) Linux Kernel Developer Name and Telephone Number: Citlaly Zimmerman RN/CM [phone] [1] Allergies Allergen Reactions Lisinopril Other (See [...] to patients area and insurance. Kamlesh Sanchez [employer] Tender Nutrition Professor Care Management Services [phone] * Plan of Care - Evelyn Galindo [...] Bush RN - 10/18/2025 3:55 PM EST [facility] Case Management/Social Work Department Progress Note [...] PCP: PROVIDER NOT IN SYSTEM Home Pharmacy: [facility] - [place] - [address] [place] [address] [facility] [address] [facility] [address] [facility] [address] [facility] [address] [facility] [address] [facility] [id number] Medical Insurance Coverage: Payor: NANCY / Plan: [...] discharge planning needs. TAMIA BUSH RN Cell [phone] * Plan of Care - Angela Tamez [...] Patient will remain free of falls Goal: [place] Fall Precautions Outcome: Progressing Problem: Daily Care [...] pain management intervention. Outcome: Progressing Problem: Non-violent, udp-wfhw-nfcjbeonmst restraints Description: Less restrictive alternative interventions will [...] of medical procedures, or protection of medical service technician access. Outcome: Progressing Problem: Knowledge Deficit Goal: [...] Patient will remain free of falls Goal: [place] Fall Precautions Outcome: Progressing Problem: Daily Care [...] pain management intervention. Outcome: Progressing Problem: Non-violent, bwx-mfek-cecxinfxvjp restraints Description: Less restrictive alternative interventions will [...] of medical procedures, or protection of medical service technician access. Outcome: Progressing Patient in bilateral soft [...] Priority Date/Time Associated Diagnosis Comments US DUPLEX [id number] COMPLETE STAT 10/22/2025 10:24 AM EST US [...] Routine 10/18/2025 10:29 AM EST US DUPLEX [id number] COMPLETE STAT 10/18/2025 9:35 AM EST US [...] in this encounter Results * US Duplex Etm-Xfa-Ubvaozd Comp (10/22/2025 10:24 AM EST) Anatomical Region [...] EXAM: US ABDOMEN COMPLETE EXAM: US DUPLEX [id number] COMPLETE INDICATION: Post-op liver transplant DATE: 10/22/2025 [...] EXAM: US ABDOMEN COMPLETE EXAM: US DUPLEX [id number] COMPLETE INDICATION: Post-op liver transplant DATE: 10/22/2025 [...] 12:02 PM EST us Leticia Lomeli MD [facility] US ORDERABLES Final Resul t * US [...] EXAM: US ABDOMEN COMPLETE EXAM: US DUPLEX [id number] COMPLETE INDICATION: Post-op liver transplant DATE: 10/22/2025 [...] EXAM: US ABDOMEN COMPLETE EXAM: US DUPLEX [id number] COMPLETE INDICATION: Post-op liver transplant DATE: 10/22/2025 [...] 12:02 PM EST us Leticia Lomeli MD [facility] ORDERABLES Final Resul t * POC Glucose Monitoring Device (10/22/2025 10:23 AM EST) POC Glucose Monitoring Device 96 70 - 100 mg/dL 10/22/2025 10:24 AM EST [facility] Blood 10/22/2025 10:2 3 AM EST 10/22/2025 10:23 AM EST Vani Winkler MD POINT OF CARE TEST ORDERABLE S Final Result Performing Organization Address [facility] Co de Phone Number [facility] [address] * Tacrolimus level (10/22/2025 9:48 AM EST) Tacrolimus (LC-MS) 4.0 3.0 - 15.0 ng/mL 10/22/2025 12:57 PM EST [facility] Comment:Performed via liquid chromatography tandem mass spectrometry. Detection limit: 1 ng/mL. Individual target concentrations may vary due to target organ and time after transplant. This test has been developed and its performance characteristics determined by [facility] which is certified under the Clinical Laboratory [...] ORDERABLES Final Re sult Performing Organization Address [facility] Co de Phone Number [facility] [address] [place] [address]. [address] * Phosphorus (10/22/2025 5:28 AM EST) Phosphorus 2.3 2.1 - 4.7 mg/dL 10/22/2025 6:20 AM EST [facility] Plasma 10/22/2025 5:28 AM EST 10/22/2025 5:42 AM EST Aspen Parr MD LAB BLOOD ORDERABLES Final Resul t Performing Organization Address [facility] Co de Phone Number [facility] [address] [place] [address] * Magnesium (10/22/2025 5:28 AM EST) Magnesium 1.7 1.5 - 2.5 mg/dL 10/22/2025 6:20 AM EST [facility] Plasma 10/22/2025 5:28 AM EST 10/22/2025 5:42 AM EST us Aspen Parr MD LAB BLOOD ORDERABLES Final Resul t [facility] [address] [place] [id number] * (ABNORMAL) CBC (10/22/2025 5:28 AM EST) WBC 6.6 3.8 - 10.8 10E3/uL 10/22/2025 5:48 AM EST [facility] RBC 2.84(L) 4.20 - 5.80 10E6/uL 10/22/2025 5:48 AM EST [facility] Hemoglobin 9.3(L) 13.2 - 17.1 g/dL 10/22/2025 5:48 AM EST [facility] Hematocrit 26.4(L) 38.5 - 50.0 % 10/22/2025 5:48 AM EST [facility] MCV 92.8 80.0 - 100.0 fL 10/22/2025 5:48 AM EST [facility] MCH 32.8 27.0 - 33.0 pg 10/22/2025 5:48 AM EST [facility] MCHC 35.4 32.0 - 36.0 g/dL 10/22/2025 5:48 AM EST [facility] RDW 16.0(H) 11.0 - 15.0 % 10/22/2025 5:48 AM EST [facility] Platelets 22(L) 140 - 400 10E3/uL 10/22/2025 5:48 AM EST [facility] Comment: CNV Specimen checked for clots. None detected. MPV 9.1 7.5 - 11.5 fL 10/22/2025 5:48 AM EST [facility] Whole Blood 10/22/2025 5:28 AM EST 10/22/2025 5:42 AM EST us Aspen Parr MD LAB BLOOD ORDERABLES Final Resul t Performing Organization Address [facility] Co de Phone Number [facility] [address] * (ABNORMAL) Hepatic Function Panel (10/22/2025 5:28 AM EST) Total Bilirubin 1.0 0.0 - 1.5 mg/dL 10/22/2025 6:20 AM EST [facility] Bilirubin, Direct 0.28 0.00 - 0.40 mg/dL 10/22/2025 6:20 AM EST [facility] AST 42(H) 13 - 39 U/L 10/22/2025 6:20 AM EST [facility] ALT 270(H) 7 - 52 U/L 10/22/2025 6:20 AM EST [facility] Alkaline Phosphatase 84 36 - 125 U/L 10/22/2025 6:20 AM EST [facility] Total Protein 4.3(L) 6.4 - 8.9 g/dL 10/22/2025 6:20 AM EST [facility] Albumin 2.1(L) 3.5 - 5.7 g/dL 10/22/2025 6:20 AM EST [facility] Bilirubin, Indirect 0.72 0.00 - 1.10 mg/dL 10/22/2025 6:20 AM EST [facility] Plasma 10/22/2025 5:28 AM EST 10/22/2025 5:42 AM EST Aspen Parr MD LAB BLOOD ORDERABLES Final Resul t Performing Organization Address [facility] Co de Phone Number [facility] [address] [facility]. [address] * (ABNORMAL) Basic metabolic panel (10/22/2025 5:28 AM EST) Sodium 138 133 - 146 mmol/L 10/22/2025 6:20 AM EST [facility] Potassium 3.2(L) 3.5 - 5.3 mmol/L 10/22/2025 6:20 AM EST [facility] Chloride 107 98 - 110 mmol/L 10/22/2025 6:20 AM EST [facility] CO2 25 21 - 33 mmol/L 10/22/2025 6:20 AM EST [facility] Comment:High lactate dehydro genase concentrations in patient samples may cause falsely increased bicarbonate results. If markedly elevated LDH is observed or suspected, please assess results in conjunction with patient`s clinical presentation. In cases of discrepant results, consider evaluating CO2 in with a blood gas order. Anion Gap 6 3 - 16 mmol/L 10/22/2025 6:20 AM EST [facility] BUN 25 7 - 25 mg/dL 10/22/2025 6:20 AM EST [facility] Creatinine 0.81 0.60 - 1.30 mg/dL 10/22/2025 6:20 AM EST [facility] Glucose 100 70 - 100 mg/dL 10/22/2025 6:20 AM EST [facility] Calcium 6.8(L) 8.6 - 10.3 mg/dL 10/22/2025 6:20 AM EST [facility] Osmolality, Calculated 290 278 - 305 mOsm/kg 10/22/2025 6:20 AM EST [facility] EGFR >90 10/22/2025 6:20 AM EST [facility] Comment: As of 2022, [...] ORDERABLES Final Resul t Performing Organization Address City/[facility]/ZIP Co de Phone Number [facility] [address] [facility]. [address] * (ABNORMAL) POC Glucose Monitoring Device (10/21/2025 4:31 PM EST) POC Glucose Monitoring Device 230(H) 70 - 100 mg/dL 10/21/2025 4:32 PM EST [facility] Blood 10/21/2025 4:31 PM EST 10/21/2025 4:32 PM EST Vani Winkler MD POINT OF CARE TEST ORDERABLE S Final Result Performing Organization Address [facility] Co de Phone Number [facility] [address] [facility]. [address] * (ABNORMAL) POC Glucose Monitoring Device (10/21/2025 12:27 PM EST) POC Glucose Monitoring Device 181(H) 70 - 100 mg/dL 10/21/2025 12:27 PM EST [facility] Blood 10/21/2025 12:2 7 PM EST 10/21/2025 12:27 PM EST Vani Winkler MD POINT OF CARE TEST ORDERABLE S Final Result Performing Organization Address City/[facility]/ZIP Co de Phone Number [facility] [address] [facility]. [address] * Tacrolimus level (10/21/2025 8:30 AM EST) Tacrolimus (LC-MS) 6.9 3.0 - 15.0 ng/mL 10/21/2025 3:07 PM EST [facility] Comment:Performed via liquid chromatography tandem mass spectrometry. Detection limit: 1 ng/mL. Individual target concentrations may vary due to target organ and time after transplant. This test has been developed and its performance characteristics determined by [facility] which is certified under the [...] ORDERABLES Final Re sult Performing Organization Address [facility]/ZIP Co de Phone Number [facility] [address] [facility]. [address] * (ABNORMAL) POC Glucose Monitoring Device (10/21/2025 8:18 AM EST) POC Glucose Monitoring Device 112(H) 70 - 100 mg/dL 10/21/2025 8:28 AM EST [facility] Blood 10/21/2025 8:18 AM EST 10/21/2025 8:28 AM EST Vani Winkler MD POINT OF CARE TEST ORDERABLE S Final Result Performing Organization Address [facility] de Phone Number [facility] [address] [place] [address] * (ABNORMAL) Hepatic Function Panel (10/21/2025 6:35 AM EST) Total Bilirubin 0.9 0.0 - 1.5 mg/dL 10/21/2025 7:45 AM EST [facility] Bilirubin, Direct 0.41(H) 0.00 - 0.40 mg/dL 10/21/2025 7:45 AM EST [facility] AST 64(H) 13 - 39 U/L 10/21/2025 7:45 AM EST [facility] ALT 389(H) 7 - 52 U/L 10/21/2025 7:45 AM EST [facility] Alkaline Phosphatase 83 36 - 125 U/L 10/21/2025 7:45 AM EST [facility] Total Protein 4.3(L) 6.4 - 8.9 g/dL 10/21/2025 7:45 AM EST [facility] Albumin 2.2(L) 3.5 - 5.7 g/dL 10/21/2025 7:45 AM EST [facility] Bilirubin, Indirect 0.49 0.00 - 1.10 mg/dL 10/21/2025 7:45 AM EST [facility] Plasma 10/21/2025 6:35 AM EST 10/21/2025 6:58 AM EST Aspen Parr MD LAB BLOOD ORDERABLES Final Resul t Performing Organization Address City/[facility]/ZIP Co de Phone Number [facility] [address] [facility]. [address] * Magnesium (10/21/2025 6:35 AM EST) Magnesium 2.0 1.5 - 2.5 mg/dL 10/21/2025 7:45 AM EST [facility] Plasma 10/21/2025 6:35 AM EST 10/21/2025 6:58 AM EST Aspen Parr MD LAB BLOOD ORDERABLES Final Resul t Performing Organization Address [facility] de Phone Number [facility] [address] [facility]. [address] * (ABNORMAL) Renal Function Panel w/EGFR (10/21/2025 6:35 AM EST) Sodium 139 133 - 146 mmol/L 10/21/2025 7:45 AM EST [facility] Potassium 3.5 3.5 - 5.3 mmol/L 10/21/2025 7:45 AM EST [facility] Chloride 108 98 - 110 mmol/L 10/21/2025 7:45 AM EST [facility] CO2 26 21 - 33 mmol/L 10/21/2025 7:45 AM EST [facility] Comment:High lactate dehydro genase concentrations in patient samples may cause falsely increased bicarbonate results. If markedly elevated LDH is observed or suspected, please assess results in conjunction with patient`s clinical presentation. In cases of discrepant results, consider evaluating CO2 in with a blood gas order. Anion Gap 5 3 - 16 mmol/L 10/21/2025 7:45 AM EST [facility] BUN 39(H) 7 - 25 mg/dL 10/21/2025 7:45 AM EST [facility] Creatinine 0.96 0.60 - 1.30 mg/dL 10/21/2025 7:45 AM EST [facility] Glucose 126(H) 70 - 100 mg/dL 10/21/2025 7:45 AM EST [facility] Calcium 6.8(L) 8.6 - 10.3 mg/dL 10/21/2025 7:45 AM EST [facility] Phosphorus 2.8 2.1 - 4.7 mg/dL 10/21/2025 7:45 AM EST [facility] Albumin 2.2(L) 3.5 - 5.7 g/dL 10/21/2025 7:45 AM EST [facility] Osmolality, Calculated 299 278 - 305 mOsm/kg 10/21/2025 7:45 AM EST [facility] EGFR 88 10/21/2025 7:45 AM EST [facility] Comment:As of 2022, the [...] BLOOD ORDERABLES Final Resul t [facility] [address] [place] [address], [facility] * (ABNORMAL) CBC (10/21/2025 6:35 AM EST) WBC 8.4 3.8 - 10.8 10E3/uL 10/21/2025 7:55 AM EST [facility] RBC 2.68(L) 4.20 - 5.80 10E6/uL 10/21/2025 7:55 AM EST [facility] Hemoglobin 8.9(L) 13.2 - 17.1 g/dL 10/21/2025 7:55 AM EST [facility] Hematocrit 24.8(L) 38.5 - 50.0 % 10/21/2025 7:55 AM EST [facility] MCV 92.6 80.0 - 100.0 fL 10/21/2025 7:55 AM EST [facility] MCH 33.3(H) 27.0 - 33.0 pg 10/21/2025 7:55 AM EST [facility] MCHC 36.0 32.0 - 36.0 g/dL 10/21/2025 7:55 AM EST [facility] RDW 16.9(H) 11.0 - 15.0 % 10/21/2025 7:55 AM EST [facility] Platelets 20(L) 140 - 400 10E3/uL 10/21/2025 7:55 AM EST [facility] Comment: CNV Specimen checked for clots. None detected. MPV 8.5 7.5 - 11.5 fL 10/21/2025 7:55 AM EST [facility] Whole Blood 10/21/2025 6:35 AM EST 10/21/2025 6:58 AM EST us Aspen Parr MD LAB BLOOD ORDERABLES Final Resul t [facility] [address] [place] [address], [facility] * (ABNORMAL) POC Glucose Monitoring Device (10/20/2025 5:17 PM EST) POC Glucose Monitoring Device 195(H) 70 - 100 mg/dL 10/20/2025 5:18 PM EST [facility] Blood 10/20/2025 5:17 PM EST 10/20/2025 5:18 PM EST Vani Winkler MD POINT OF CARE TEST ORDERABLE S Final Result Performing Organization Address City/[facility] Co de Phone Number [facility] [address] [facility]. [address] * (ABNORMAL) POC Glucose Monitoring Device (10/20/2025 2:24 PM EST) POC Glucose Monitoring Device 205(H) 70 - 100 mg/dL 10/20/2025 2:24 PM EST [facility] Blood 10/20/2025 2:24 PM EST 10/20/2025 2:24 PM EST Result [facility] Vani Winkler MD POINT OF CARE TEST ORDERABLE S Final Result Performing Organization Address [facility] de Phone Number [facility] [address] [place] [address]. [address] * Tacrolimus level (10/20/2025 10:31 AM EST) Tacrolimus (LC-MS) 7.9 3.0 - 15.0 ng/mL 10/20/2025 2:25 PM EST [facility] Comment:Performed via liquid chromatography tandem mass spectrometry. Detection limit: 1 ng/mL. Individual target concentrations may vary due to target organ and time after transplant. This test has been developed and its performance characteristics determined by [facility] which is certified under the [...] 1 AM EST 10/20/2025 10:43 AM EST Result [facility] Leticia Lomeli MD LAB BLOOD ORDERABLES Final Re sult Performing Organization Address [facility] Co de Phone Number [facility] [address] * (ABNORMAL) POC Glucose Monitoring Device (10/20/2025 9:24 AM EST) Pathologist [facility] POC Glucose Monitoring Device 227(H) 70 - 100 mg/dL 10/20/2025 9:25 AM EST [facility] Blood 10/20/2025 9:24 AM EST 10/20/2025 9:25 AM EST Vani Winkler MD POINT OF CARE TEST ORDERABLE S Final Result [facility] [address] [facility]. [address] * Magnesium (10/20/2025 5:31 AM EST) Pathologist [facility] Magnesium 2.1 1.5 - 2.5 mg/dL 10/20/2025 7:35 AM EST [facility] Plasma 10/20/2025 5:31 AM EST 10/20/2025 5:42 AM EST us Aspen Parr MD LAB BLOOD ORDERABLES Final Resul t [facility] [address] [facility]. [address] * (ABNORMAL) Hepatic Function Panel (10/20/2025 5:31 AM EST) Pathologist [facility] Total Bilirubin 0.9 0.0 - 1.5 mg/dL 10/20/2025 7:35 AM EST [facility] Bilirubin, Direct 0.43(H) 0.00 - 0.40 mg/dL 10/20/2025 7:35 AM EST [facility] AST 161(H) 13 - 39 U/L 10/20/2025 7:35 AM EST [facility] ALT 532(H) 7 - 52 U/L 10/20/2025 7:35 AM EST [facility] Alkaline Phosphatase 67 36 - 125 U/L 10/20/2025 7:35 AM EST [facility] Total Protein 4.2(L) 6.4 - 8.9 g/dL 10/20/2025 7:35 AM EST [facility] Albumin 2.2(L) 3.5 - 5.7 g/dL 10/20/2025 7:35 AM EST [facility] Bilirubin, Indirect 0.47 0.00 - 1.10 mg/dL 10/20/2025 7:35 AM EST [facility] Plasma 10/20/2025 5:31 AM EST 10/20/2025 5:42 AM EST us Aspen Parr MD LAB BLOOD ORDERABLES Final Resul t [facility] [address] [place] [address], [facility] * (ABNORMAL) Renal Function Panel w/EGFR (10/20/2025 5:31 AM EST) Sodium 142 133 - 146 mmol/L 10/20/2025 7:23 AM [facility] Potassium 3.8 3.5 - 5.3 mmol/L 10/20/2025 7:23 AM [facility] Chloride 111(H) 98 - 110 mmol/L 10/20/2025 7:23 AM [facility] CO2 25 21 - 33 mmol/L 10/20/2025 7:23 AM [facility] Comment:High lactate dehydro genase concentrations in patient samples may cause falsely increased bicarbonate results. If markedly elevated LDH is observed or suspected, please assess results in conjunction with patient`s clinical presentation. In cases of discrepant results, consider evaluating CO2 in with a blood gas order. Anion Gap 6 3 - 16 mmol/L 10/20/2025 7:23 AM EST [facility] BUN 47(H) 7 - 25 mg/dL 10/20/2025 7:23 AM [facility] Creatinine 1.15 0.60 - 1.30 mg/dL 10/20/2025 7:23 AM EST [facility] Glucose 198(H) 70 - 100 mg/dL 10/20/2025 7:23 AM EST [facility] Calcium 6.8(L) 8.6 - 10.3 mg/dL 10/20/2025 7:23 AM [facility] Phosphorus 4.8(H) 2.1 - 4.7 mg/dL 10/20/2025 7:35 AM EST [facility] Albumin 2.2(L) 3.5 - 5.7 g/dL 10/20/2025 7:35 AM EST [facility] Osmolality, Calculated 312(H) 278 - 305 mOsm/kg 10/20/2025 7:23 AM EST [facility] EGFR 71 10/20/2025 7:23 AM EST [facility] Comment:As of 2022, the [...] BLOOD ORDERABLES Final Resul t [facility] [address] [id number] * (ABNORMAL) CBC (10/20/2025 5:31 AM EST) WBC 6.1 3.8 - 10.8 10E3/uL 10/20/2025 6:18 AM EST [facility] RBC 2.64(L) 4.20 - 5.80 10E6/uL 10/20/2025 6:18 AM EST [facility] Hemoglobin 8.5(L) 13.2 - 17.1 g/dL 10/20/2025 6:18 AM EST [facility] Hematocrit 24.6(L) 38.5 - 50.0 % 10/20/2025 6:18 AM EST [facility] MCV 93.2 80.0 - 100.0 fL 10/20/2025 6:18 AM EST [facility] MCH 32.2 27.0 - 33.0 pg 10/20/2025 6:18 AM EST [facility] MCHC 34.6 32.0 - 36.0 g/dL 10/20/2025 6:18 AM EST [facility] RDW 17.4(H) 11.0 - 15.0 % 10/20/2025 6:18 AM EST [facility] Platelets 17(LL) 140 - 400 10E3/uL 10/20/2025 6:18 AM EST [facility] Comment: Results verified by repeat analysis. Critical Result PLT:17 Called to and read back by ALEKSANDR SMITH RN at: 10/20/2025 06:18:19 by:DEJON MPV 8.4 7.5 - 11.5 fL 10/20/2025 6:18 AM EST [facility] Whole Blood 10/20/2025 5:31 AM EST 10/20/2025 5:42 AM EST us Aspen Parr MD LAB BLOOD ORDERABLES Final Resul t Performing Organization Address City/[facility]/ZIP Co de Phone Number [facility] [address] * (ABNORMAL) POC Glucose Monitoring Device (10/20/2025 5:30 AM EST) POC Glucose Monitoring Device 208(H) 70 - 100 mg/dL 10/20/2025 5:31 AM EST [facility] Blood 10/20/2025 5:30 AM EST 10/20/2025 5:31 AM EST us Vani Winkler MD POINT OF CARE TEST ORDERABLE S Final Result Performing Organization Address [facility]/ZIP Co de Phone Number [facility] [address] * (ABNORMAL) Protime-INR (10/19/2025 11:03 PM EST) Protime 18.2(H) 12.1 - 15.1 seconds 10/19/2025 11:27 PM EST [facility] INR 1.4(H) 0.9 - 1.1 10/19/2025 11:27 PM EST [facility] Comment: RECOMMENDED THERAPEUTIC RANGES USING INR : Stable oral anticoagulant therapy: 2.0 - 3.0 Mechanical prosthetic heart valve: 2.5 - 3.5 Recurrent acute myocardial infarction: 2.5 - 3.5 Plasma 10/19/2025 11:0 3 PM EST 10/19/2025 11:07 PM EST Aspen Parr MD LAB BLOOD ORDERABLES Final Resul t Performing Organization Address [facility] Co de Phone Number [facility] [address] [facility] * Magnesium (10/19/2025 11:03 PM EST) Magnesium 2.1 1.5 - 2.5 mg/dL 10/19/2025 11:45 PM EST [facility] Plasma 10/19/2025 11:0 3 PM EST 10/19/2025 11:07 PM EST Aspen Parr MD LAB BLOOD ORDERABLES Final Resul t Performing Organization Address [facility] Co de Phone Number [facility] [address] [facility] * (ABNORMAL) Hepatic Function Panel (10/19/2025 11:03 PM EST) Total Bilirubin 1.0 0.0 - 1.5 mg/dL 10/19/2025 11:45 PM EST [facility] Bilirubin, Direct 0.48(H) 0.00 - 0.40 mg/dL 10/19/2025 11:45 PM EST [facility] AST 223(H) 13 - 39 U/L 10/19/2025 11:45 PM EST [facility] ALT 569(H) 7 - 52 U/L 10/19/2025 11:45 PM EST [facility] Alkaline Phosphatase 68 36 - 125 U/L 10/19/2025 11:45 PM EST [facility] Total Protein 4.4(L) 6.4 - 8.9 g/dL 10/19/2025 11:45 PM EST [facility] [facility] Albumin 2.2(L) 3.5 - 5.7 g/dL 10/19/2025 11:45 PM EST [facility] Bilirubin, Indirect 0.52 0.00 - 1.10 mg/dL 10/19/2025 11:45 PM EST [facility] Plasma 10/19/2025 11:0 3 PM EST 10/19/2025 11:07 PM EST us Aspen Parr MD LAB BLOOD ORDERABLES Final Resul t [facility] [address] [place] [address], [facility] * (ABNORMAL) Renal Function Panel w/EGFR (10/19/2025 11:03 PM EST) Sodium 144 133 - 146 mmol/L 10/19/2025 11:33 PM EST [facility] Potassium 3.6 3.5 - 5.3 mmol/L 10/19/2025 11:33 PM EST [facility] Chloride 110 98 - 110 mmol/L 10/19/2025 11:33 PM [facility] CO2 25 21 - 33 mmol/L 10/19/2025 11:33 PM [facility] Comment:High lactate dehydro genase concentrations in patient samples may cause falsely increased bicarbonate results. If markedly elevated LDH is observed or suspected, please assess results in conjunction with patient`s clinical presentation. In cases of discrepant results, consider evaluating CO2 in with a blood gas order. Anion Gap 9 3 - 16 mmol/L 10/19/2025 11:33 PM EST [facility] BUN 46(H) 7 - 25 mg/dL 10/19/2025 11:33 PM [facility] Creatinine 1.24 0.60 - 1.30 mg/dL 10/19/2025 11:33 PM EST [facility] Glucose 184(H) 70 - 100 mg/dL 10/19/2025 11:33 PM EST [facility] Calcium 7.1(L) 8.6 - 10.3 mg/dL 10/19/2025 11:33 PM EST [facility] Phosphorus 4.9(H) 2.1 - 4.7 mg/dL 10/19/2025 11:45 PM EST [facility] Albumin 2.2(L) 3.5 - 5.7 g/dL 10/19/2025 11:45 PM EST [facility] Osmolality, Calculated 315(H) 278 - 305 mOsm/kg 10/19/2025 11:33 PM EST [facility] EGFR 65 10/19/2025 11:33 PM EST [facility] Comment:As of 2022, the [...] BLOOD ORDERABLES Final Resul t [facility] [address] [place] [address], [facility] * (ABNORMAL) CBC (10/19/2025 11:03 PM EST) WBC 7.0 3.8 - 10.8 10E3/uL 10/19/2025 11:20 PM EST [facility] RBC 2.77(L) 4.20 - 5.80 10E6/uL 10/19/2025 11:20 PM EST [facility] Hemoglobin 8.9(L) 13.2 - 17.1 g/dL 10/19/2025 11:20 PM EST [facility] Hematocrit 25.8(L) 38.5 - 50.0 % 10/19/2025 11:20 PM EST [facility] MCV 93.2 80.0 - 100.0 fL 10/19/2025 11:20 PM EST [facility] MCH 32.2 27.0 - 33.0 pg 10/19/2025 11:20 PM EST [facility] MCHC 34.5 32.0 - 36.0 g/dL 10/19/2025 11:20 PM EST [facility] RDW 18.1(H) 11.0 - 15.0 % 10/19/2025 11:20 PM EST [facility] Platelets 20(L) 140 - 400 10E3/uL 10/19/2025 11:20 PM EST [facility] Comment:CNV MPV 8.0 7.5 - 11.5 fL 10/19/2025 11:20 PM EST [facility] Whole Blood 10/19/2025 11:0 3 PM EST 10/19/2025 11:07 PM EST us Aspen Parr MD LAB BLOOD ORDERABLES Final Resul t [facility] [address] * (ABNORMAL) POC Glucose Monitoring Device (10/19/2025 11:02 PM EST) POC Glucose Monitoring Device 185(H) 70 - 100 mg/dL 10/19/2025 11:03 PM EST [facility] Blood 10/19/2025 11:0 2 PM EST 10/19/2025 11:03 PM EST us Vani Winkler MD POINT OF CARE TEST ORDERABLE S Final Result [facility] [address] * (ABNORMAL) POC Glucose Monitoring Device (10/19/2025 5:24 PM EST) POC Glucose Monitoring Device 166(H) 70 - 100 mg/dL 10/19/2025 5:35 PM EST [facility] Blood 10/19/2025 5:24 PM EST 10/19/2025 5:35 PM EST Vani Winkler MD POINT OF CARE TEST ORDERABLE S Final Result [facility] [address] [facility]. [address] * (ABNORMAL) POC Glucose Monitoring Device (10/19/2025 12:26 PM EST) POC Glucose Monitoring Device 156(H) 70 - 100 mg/dL 10/19/2025 12:27 PM EST [facility] Blood 10/19/2025 12:2 6 PM EST 10/19/2025 12:27 PM EST Vani Winkler MD POINT OF CARE TEST ORDERABLE S Final Result Performing Organization Address City/[facility]/ZIP Co de Phone Number [facility] [address] [facility]. [address] * (ABNORMAL) POC Glucose Monitoring Device (10/19/2025 9:51 AM EST) POC Glucose Monitoring Device 110(H) 70 - 100 mg/dL 10/19/2025 9:52 AM EST [facility] Blood 10/19/2025 9:51 AM EST 10/19/2025 9:52 AM EST Vani Winkler MD POINT OF CARE TEST ORDERABLE S Final Result Performing Organization Address City/[facility]/ZIP Co de Phone Number [facility] [address] [facility]. [address] * (ABNORMAL) Tacrolimus level (10/19/2025 8:29 AM EST) Tacrolimus (LC-MS) 2.1(L) 3.0 - 15.0 ng/mL 10/19/2025 3:06 PM EST [facility] Comment:Performed via liquid chromatography tandem mass spectrometry. Detection limit: 1 ng/mL. Individual target concentrations may vary due to target organ and time after transplant. This test has been developed and its performance characteristics determined by [facility] which is certified under the [...] ORDERABLES Final Re sult Performing Organization Address [facility] Co de Phone Number [facility] [address] [place] [address]. [address] * (ABNORMAL) Protime-INR (10/19/2025 8:29 AM EST) Protime 19.1(H) 12.1 - 15.1 seconds 10/19/2025 9:09 AM EST [facility] INR 1.5(H) 0.9 - 1.1 10/19/2025 9:09 AM EST [facility] Comment: RECOMMENDED THERAPEUTIC RANGES USING INR : Stable oral anticoagulant therapy: 2.0 - 3.0 Mechanical prosthetic heart valve: 2.5 - 3.5 Recurrent acute myocardial infarction: 2.5 - 3.5 Plasma 10/19/2025 8:29 AM EST 10/19/2025 8:33 AM EST Aspen Parr MD LAB BLOOD ORDERABLES Final Resul t Performing Organization Address [facility] Co de Phone Number [facility] [address] [place] [address]. [address] * Magnesium (10/19/2025 8:29 AM EST) Magnesium 2.0 1.5 - 2.5 mg/dL 10/19/2025 9:28 AM EST [facility] Plasma 10/19/2025 8:29 AM EST 10/19/2025 8:33 AM EST us Aspen Parr MD LAB BLOOD ORDERABLES Final Resul t Performing Organization Address [facility] Co de Phone Number [facility] [address] * (ABNORMAL) Hepatic Function Panel (10/19/2025 8:29 AM EST) Total Bilirubin 1.0 0.0 - 1.5 mg/dL 10/19/2025 9:28 AM EST [facility] Bilirubin, Direct 0.44(H) 0.00 - 0.40 mg/dL 10/19/2025 9:28 AM EST [facility] AST 450(H) 13 - 39 U/L 10/19/2025 9:28 AM EST [facility] ALT 725(H) 7 - 52 U/L 10/19/2025 9:28 AM EST [facility] Alkaline Phosphatase 65 36 - 125 U/L 10/19/2025 9:28 AM EST [facility] Total Protein 4.4(L) 6.4 - 8.9 g/dL 10/19/2025 9:28 AM EST [facility] Albumin 2.2(L) 3.5 - 5.7 g/dL 10/19/2025 9:28 AM EST [facility] Bilirubin, Indirect 0.56 0.00 - 1.10 mg/dL 10/19/2025 9:28 AM EST [facility] Plasma 10/19/2025 8:29 AM EST 10/19/2025 8:33 AM EST us Aspen Parr MD LAB BLOOD ORDERABLES Final Resul t Performing Organization Address [facility] Co de Phone Number [facility] [address] * (ABNORMAL) Renal Function Panel w/EGFR (10/19/2025 8:29 AM EST) Sodium 145 133 - 146 mmol/L 10/19/2025 9:09 AM [facility] Potassium 3.6 3.5 - 5.3 mmol/L 10/19/2025 9:09 AM [facility] Chloride 113(H) 98 - 110 mmol/L 10/19/2025 9:09 AM [facility] CO2 25 21 - 33 mmol/L 10/19/2025 9:09 AM [facility] Comment:High lactate dehydro genase concentrations in patient samples may cause falsely increased bicarbonate results. If markedly elevated LDH is observed or suspected, please assess results in conjunction with patient`s clinical presentation. In cases of discrepant results, consider evaluating CO2 in with a blood gas order. Anion Gap 7 3 - 16 mmol/L 10/19/2025 9:09 AM [facility] BUN 38(H) 7 - 25 mg/dL 10/19/2025 9:09 AM [facility] Creatinine 1.16 0.60 - 1.30 mg/dL 10/19/2025 9:09 AM [facility] Glucose 129(H) 70 - 100 mg/dL 10/19/2025 9:09 AM [facility] Calcium 7.2(L) 8.6 - 10.3 mg/dL 10/19/2025 9:09 AM [facility] Phosphorus 4.0 2.1 - 4.7 mg/dL 10/19/2025 9:28 AM [facility] Albumin 2.2(L) 3.5 - 5.7 g/dL 10/19/2025 9:28 AM [facility] Osmolality, Calculated 311(H) 278 - 305 mOsm/kg 10/19/2025 9:09 AM [facility] EGFR 70 10/19/2025 9:09 AM [facility] Comment:As of 2022, the estimated [...] BLOOD ORDERABLES Final Resul t [facility] [address] [place] [address], [facility] * (ABNORMAL) CBC (10/19/2025 8:29 AM EST) WBC 9.8 3.8 - 10.8 10E3/uL 10/19/2025 9:06 AM EST [facility] RBC 2.90(L) 4.20 - 5.80 10E6/uL 10/19/2025 9:06 AM [facility] Hemoglobin 9.6(L) 13.2 - 17.1 g/dL 10/19/2025 9:06 AM [facility] Hematocrit 26.8(L) 38.5 - 50.0 % 10/19/2025 9:06 AM [facility] MCV 92.4 80.0 - 100.0 fL 10/19/2025 9:06 AM [facility] MCH 33.2(H) 27.0 - 33.0 pg 10/19/2025 9:06 AM [facility] MCHC 36.0 32.0 - 36.0 g/dL 10/19/2025 9:06 AM [facility] RDW 18.5(H) 11.0 - 15.0 % 10/19/2025 9:06 AM [facility] Platelets 22(L) 140 - 400 10E3/uL 10/19/2025 9:06 AM [facility] Comment: CNV Specimen checked for clots. None detected. MPV 8.5 7.5 - 11.5 fL 10/19/2025 9:06 AM [facility] Whole Blood 10/19/2025 8:29 AM EST 10/19/2025 8:33 AM EST us Aspen Parr MD LAB BLOOD ORDERABLES Final Resul t Performing Organization Address [facility] Co de Phone Number [facility] [address] [facility] * (ABNORMAL) POC Glucose Monitoring Device (10/19/2025 8:28 AM EST) POC Glucose Monitoring Device 122(H) 70 - 100 mg/dL 10/19/2025 8:39 AM EST [facility] Blood 10/19/2025 8:28 AM EST 10/19/2025 8:38 AM EST us aVni Winkler MD POINT OF CARE TEST ORDERABLE S Final Result Performing Organization Address [facility] Co de Phone Number [facility] [address] [facility]. [address] * (ABNORMAL) POC Glucose Monitoring Device (10/19/2025 7:07 AM EST) POC Glucose Monitoring Device 136(H) 70 - 100 mg/dL 10/19/2025 7:08 AM EST [facility] Blood 10/19/2025 7:07 AM EST 10/19/2025 7:08 AM EST us Vani Winkler MD POINT OF CARE TEST ORDERABLE S Final Result Performing Organization Address [facility] Co de Phone Number [facility] [address] [facility]. [address] * (ABNORMAL) POC Glucose Monitoring Device (10/19/2025 6:28 AM EST) POC Glucose Monitoring Device 109(H) 70 - 100 mg/dL 10/19/2025 6:29 AM EST [facility] Blood 10/19/2025 6:28 AM EST 10/19/2025 6:29 AM EST Vani Winkler MD POINT OF CARE TEST ORDERABLE S Final Result Performing Organization Address [facility] Co de Phone Number [facility] [address] [place] [address]. [address] * (ABNORMAL) POC Glucose Monitoring Device (10/19/2025 6:10 AM EST) POC Glucose Monitoring Device 108(H) 70 - 100 mg/dL 10/19/2025 6:12 AM EST [facility] Blood 10/19/2025 6:10 AM EST 10/19/2025 6:11 AM EST us Vani Winkler MD POINT OF CARE TEST ORDERABLE S Final Result Performing Organization Address [facility] Co de Phone Number [facility] [address] [facility]. [address] * (ABNORMAL) POC Glucose Monitoring Device (10/19/2025 4:06 AM EST) POC Glucose Monitoring Device 115(H) 70 - 100 mg/dL 10/19/2025 4:07 AM EST [facility] Blood 10/19/2025 4:06 AM EST 10/19/2025 4:07 AM EST us Vani Winkler MD POINT OF CARE TEST ORDERABLE S Final Result Performing Organization Address [facility] Co de Phone Number [facility] [address] [place] [address]. [address] * (ABNORMAL) POC Glucose Monitoring Device (10/19/2025 2:04 AM EST) POC Glucose Monitoring Device 129(H) 70 - 100 mg/dL 10/19/2025 2:06 AM EST [facility] Blood 10/19/2025 2:04 AM EST 10/19/2025 2:05 AM EST us Vani Winkler MD POINT OF CARE TEST ORDERABLE S Final Result [facility] [address] [facility]. [address] * (ABNORMAL) POC Glucose Monitoring Device (10/18/2025 11:57 PM EST) POC Glucose Monitoring Device 131(H) 70 - 100 mg/dL 10/18/2025 11:58 PM EST [facility] Blood 10/18/2025 11:5 7 PM EST 10/18/2025 11:58 PM EST Vani Winkler MD POINT OF CARE TEST ORDERABLE S Final Result Performing Organization Address [facility]/ZIP Co de Phone Number [facility] [address] [facility] * Lactic Acid (10/18/2025 10:20 PM EST) Lactate 0.8 0.5 - 2.2 mmol/L 10/18/2025 11:03 PM EST [facility] Plasma 10/18/2025 10:2 0 PM EST 10/18/2025 10:26 PM EST Aspen Parr MD LAB BLOOD ORDERABLES Final Resul t Performing Organization Address [facility]/ZIP Co de Phone Number [facility] [address] [facility] * Magnesium (10/18/2025 10:20 PM EST) Magnesium 1.8 1.5 - 2.5 mg/dL 10/18/2025 11:18 PM EST [facility] Plasma 10/18/2025 10:2 0 PM EST 10/18/2025 10:26 PM EST Aspen Parr MD LAB BLOOD ORDERABLES Final Resul t Performing Organization Address City/[facility]/ZIP Co de Phone Number [facility] [address] [facility]. [address] * (ABNORMAL) Hepatic Function Panel (10/18/2025 10:20 PM EST) Total Bilirubin 1.0 0.0 - 1.5 mg/dL 10/18/2025 11:18 PM EST [facility] Bilirubin, Direct 0.51(H) 0.00 - 0.40 mg/dL 10/18/2025 11:18 PM EST [facility] AST 717(H) 13 - 39 U/L 10/18/2025 11:18 PM EST [facility] ALT 792(H) 7 - 52 U/L 10/18/2025 11:18 PM EST [facility] Alkaline Phosphatase 62 36 - 125 U/L 10/18/2025 11:18 PM EST [facility] Total Protein 4.3(L) 6.4 - 8.9 g/dL 10/18/2025 11:18 PM EST [facility] Albumin 2.1(L) 3.5 - 5.7 g/dL 10/18/2025 11:18 PM EST [facility] Bilirubin, Indirect 0.49 0.00 - 1.10 mg/dL 10/18/2025 11:18 PM EST [facility] Plasma 10/18/2025 10:2 0 PM EST 10/18/2025 10:26 PM EST us Aspen Parr MD LAB BLOOD ORDERABLES Final Resul t [facility] [address] * (ABNORMAL) Renal Function Panel w/EGFR (10/18/2025 10:20 PM EST) Sodium 146 133 - 146 mmol/L 10/18/2025 11:05 PM EST [facility] Potassium 3.1(L) 3.5 - 5.3 mmol/L 10/18/2025 11:05 PM EST [facility] Chloride 113(H) 98 - 110 mmol/L 10/18/2025 11:05 PM EST [facility] CO2 24 21 - 33 mmol/L 10/18/2025 11:05 PM EST [facility] Comment:High lactate dehydro genase concentrations in patient samples may cause falsely increased bicarbonate results. If markedly elevated LDH is observed or suspected, please assess results in conjunction with patient`s clinical presentation. In cases of discrepant results, consider evaluating CO2 in with a blood gas order. Anion Gap 9 3 - 16 mmol/L 10/18/2025 11:05 PM EST [facility] BUN 32(H) 7 - 25 mg/dL 10/18/2025 11:05 PM EST [facility] Creatinine 1.09 0.60 - 1.30 mg/dL 10/18/2025 11:05 PM [facility] Glucose 129(H) 70 - 100 mg/dL 10/18/2025 11:05 PM [facility] Calcium 7.4(L) 8.6 - 10.3 mg/dL 10/18/2025 11:05 PM [facility] Phosphorus 4.0 2.1 - 4.7 mg/dL 10/18/2025 11:18 PM [facility] Albumin 2.1(L) 3.5 - 5.7 g/dL 10/18/2025 11:18 PM [facility] Osmolality, Calculated 311(H) 278 - 305 mOsm/kg 10/18/2025 11:05 PM [facility] EGFR 76 10/18/2025 11:05 PM [facility] Comment:As of 2022, the estimated [...] ORDERABLES Final Resul t Performing Organization Address City/[facility]/ZIP Co de Phone Number [facility] [address] * (ABNORMAL) Protime-INR (10/18/2025 10:20 PM EST) Protime 21.9(H) 12.1 - 15.1 seconds 10/18/2025 10:52 PM EST [facility] INR 1.8(H) 0.9 - 1.1 10/18/2025 10:52 PM EST [facility] Comment: RECOMMENDED THERAPEUTIC RANGES USING INR : Stable oral anticoagulant therapy: 2.0 - 3.0 Mechanical prosthetic heart valve: 2.5 - 3.5 Recurrent acute myocardial infarction: 2.5 - 3.5 Plasma 10/18/2025 10:2 0 PM EST 10/18/2025 10:26 PM EST Aspen Parr MD LAB BLOOD ORDERABLES Final Resul t Performing Organization Address [facility]/ZIP Co de Phone Number [facility] [address] * (ABNORMAL) CBC (10/18/2025 10:20 PM EST) WBC 11.4(H) 3.8 - 10.8 10E3/uL 10/18/2025 10:59 PM EST [facility] RBC 2.92(L) 4.20 - 5.80 10E6/uL 10/18/2025 10:59 PM EST [facility] Hemoglobin 9.5(L) 13.2 - 17.1 g/dL 10/18/2025 10:59 PM EST [facility] Hematocrit 26.9(L) 38.5 - 50.0 % 10/18/2025 10:59 PM EST [facility] MCV 92.2 80.0 - 100.0 fL 10/18/2025 10:59 PM EST [facility] MCH 32.7 27.0 - 33.0 pg 10/18/2025 10:59 PM EST [facility] MCHC 35.4 32.0 - 36.0 g/dL 10/18/2025 10:59 PM EST [facility] RDW 18.3(H) 11.0 - 15.0 % 10/18/2025 10:59 PM EST [facility] Platelets 22(L) 140 - 400 10E3/uL 10/18/2025 10:59 PM EST [facility] Comment: CNV Specimen checked for clots. None detected. MPV 7.8 7.5 - 11.5 fL 10/18/2025 10:59 PM EST [facility] Whole Blood 10/18/2025 10:2 0 PM EST 10/18/2025 10:26 PM EST Aspen Parr MD LAB BLOOD ORDERABLES Final Resul t Performing Organization Address City/[facility]/ZIP Co de Phone Number [facility] [address] [facility]. [address] * (ABNORMAL) POC Glucose Monitoring Device (10/18/2025 10:07 PM EST) POC Glucose Monitoring Device 134(H) 70 - 100 mg/dL 10/18/2025 10:08 PM EST [facility] Blood 10/18/2025 10:0 7 PM EST 10/18/2025 10:08 PM EST us Vani Winkler MD POINT OF CARE TEST ORDERABLE S Final Result Performing Organization Address City/[facility]/ZIP Co de Phone Number [facility] [address] [facility] * (ABNORMAL) POC Glucose Monitoring Device (10/18/2025 8:14 PM EST) POC Glucose Monitoring Device 138(H) 70 - 100 mg/dL 10/18/2025 8:15 PM EST [facility] Blood 10/18/2025 8:14 PM EST 10/18/2025 8:15 PM EST Vani Winkler MD POINT OF CARE TEST ORDERABLE S Final Result [facility] [address] [facility]. [address] * Lactic Acid (10/18/2025 5:47 PM EST) Lactate 0.7 0.5 - 2.2 mmol/L 10/18/2025 8:43 PM EST [facility] Plasma 10/18/2025 5:47 PM EST 10/18/2025 7:56 PM EST Aspen Parr MD LAB BLOOD ORDERABLES Final Resul t [facility] [address] [facility]. [address] * Magnesium (10/18/2025 5:47 PM EST) Magnesium 1.9 1.5 - 2.5 mg/dL 10/18/2025 6:40 PM EST [facility] Plasma 10/18/2025 5:47 PM EST 10/18/2025 5:54 PM EST Aspen Parr MD LAB BLOOD ORDERABLES Final Resul t Performing Organization Address City/[facility]/ZIP Co de Phone Number [facility] [address] [facility]. [address] * (ABNORMAL) Hepatic Function Panel (10/18/2025 5:47 PM EST) Total Bilirubin 1.1 0.0 - 1.5 mg/dL 10/18/2025 6:40 PM EST [facility] Bilirubin, Direct 0.56(H) 0.00 - 0.40 mg/dL 10/18/2025 6:40 PM EST [facility] AST 965(H) 13 - 39 U/L 10/18/2025 6:40 PM EST [facility] ALT 871(H) 7 - 52 U/L 10/18/2025 6:40 PM EST [facility] Alkaline Phosphatase 61 36 - 125 U/L 10/18/2025 6:40 PM EST [facility] Total Protein 4.3(L) 6.4 - 8.9 g/dL 10/18/2025 6:40 PM EST [facility] Albumin 2.2(L) 3.5 - 5.7 g/dL 10/18/2025 6:40 PM EST [facility] Bilirubin, Indirect 0.54 0.00 - 1.10 mg/dL 10/18/2025 6:40 PM EST [facility] Plasma 10/18/2025 5:47 PM EST 10/18/2025 5:54 PM EST us Aspen Parr MD LAB BLOOD ORDERABLES Final Resul t [facility] [address] [place] [address], [facility] * (ABNORMAL) Renal Function Panel w/EGFR (10/18/2025 5:47 PM EST) Sodium 144 133 - 146 mmol/L 10/18/2025 6:27 PM EST [facility] Potassium 3.4(L) 3.5 - 5.3 mmol/L 10/18/2025 6:27 PM EST [facility] Chloride 112(H) 98 - 110 mmol/L 10/18/2025 6:27 PM EST [facility] CO2 24 21 - 33 mmol/L 10/18/2025 6:27 PM EST [facility] Comment:High lactate dehydro genase concentrations in patient samples may cause falsely increased bicarbonate results. If markedly elevated LDH is observed or suspected, please assess results in conjunction with patient`s clinical presentation. In cases of discrepant results, consider evaluating CO2 in with a blood gas order. Anion Gap 8 3 - 16 mmol/L 10/18/2025 6:27 PM EST [facility] BUN 29(H) 7 - 25 mg/dL 10/18/2025 6:27 PM EST [facility] Creatinine 1.09 0.60 - 1.30 mg/dL 10/18/2025 6:27 PM EST [facility] Glucose 136(H) 70 - 100 mg/dL 10/18/2025 6:27 PM EST [facility] Calcium 7.5(L) 8.6 - 10.3 mg/dL 10/18/2025 6:27 PM EST [facility] Phosphorus 3.8 2.1 - 4.7 mg/dL 10/18/2025 6:40 PM EST [facility] Albumin 2.2(L) 3.5 - 5.7 g/dL 10/18/2025 6:40 PM EST [facility] Osmolality, Calculated 306(H) 278 - 305 mOsm/kg 10/18/2025 6:27 PM EST [facility] EGFR 76 10/18/2025 6:27 PM EST [facility] Comment:As of 2022, the [...] DC, Josue CARLSON, Dee Dee LOMELI, Nazia MARIE, et al. A Unifying Approach for GFR Estimation: Recommendations of the NKF-ASN Task Force on Reassessing the inclusion of Race in Diagnosing Kidney Disease. Am J Kidney Dis. 2020. Plasma 10/18/2025 5:47 PM EST 10/18/2025 5:54 PM EST us Aspen Parr MD LAB BLOOD ORDERABLES Final Resul t [facility] [address] * (ABNORMAL) Protime-INR (10/18/2025 5:47 PM EST) Protime 21.8(H) 12.1 - 15.1 seconds 10/18/2025 6:13 PM EST [facility] INR 1.8(H) 0.9 - 1.1 10/18/2025 6:13 PM EST [facility] Comment: RECOMMENDED THERAPEUTIC RANGES USING INR : Stable oral anticoagulant therapy: 2.0 - 3.0 Mechanical prosthetic heart valve: 2.5 - 3.5 Recurrent acute myocardial infarction: 2.5 - 3.5 Plasma 10/18/2025 5:47 PM EST 10/18/2025 5:54 PM EST us Aspen Parr MD LAB BLOOD ORDERABLES Final Resul t [facility] [address] [place] [address], [facility] * (ABNORMAL) CBC (10/18/2025 5:47 PM EST) WBC 11.8(H) 3.8 - 10.8 10E3/uL 10/18/2025 6:06 PM EST [facility] RBC 3.06(L) 4.20 - 5.80 10E6/uL 10/18/2025 6:06 PM EST [facility] Hemoglobin 10.0(L) 13.2 - 17.1 g/dL 10/18/2025 6:06 PM EST [facility] Hematocrit 28.3(L) 38.5 - 50.0 % 10/18/2025 6:06 PM EST [facility] MCV 92.5 80.0 - 100.0 fL 10/18/2025 6:06 PM EST [facility] MCH 32.5 27.0 - 33.0 pg 10/18/2025 6:06 PM EST [facility] MCHC 35.2 32.0 - 36.0 g/dL 10/18/2025 6:06 PM EST [facility] RDW 18.6(H) 11.0 - 15.0 % 10/18/2025 6:06 PM EST [facility] Platelets 22(L) 140 - 400 10E3/uL 10/18/2025 6:06 PM EST [facility] Comment: CNV Specimen checked for clots. None detected. MPV 7.7 7.5 - 11.5 fL 10/18/2025 6:06 PM EST [facility] Whole Blood 10/18/2025 5:47 PM EST 10/18/2025 5:54 PM EST us Aspen Parr MD LAB BLOOD ORDERABLES Final Resul t [facility] [address] * (ABNORMAL) POC Glucose Monitoring Device (10/18/2025 5:45 PM EST) POC Glucose Monitoring Device 135(H) 70 - 100 mg/dL 10/18/2025 5:46 PM EST [facility] Blood 10/18/2025 5:45 PM EST 10/18/2025 5:46 PM EST Vani Winkler MD POINT OF CARE TEST ORDERABLE S Final Result [facility] [address] [facility]. [address] * (ABNORMAL) POC Glucose Monitoring Device (10/18/2025 3:06 PM EST) POC Glucose Monitoring Device 128(H) 70 - 100 mg/dL 10/18/2025 3:07 PM EST [facility] Blood 10/18/2025 3:06 PM EST 10/18/2025 3:07 PM EST Vani Winkler MD POINT OF CARE TEST ORDERABLE S Final Result [facility] [address] [facility]. [address] * (ABNORMAL) POC Glucose Monitoring Device (10/18/2025 1:15 PM EST) POC Glucose Monitoring Device 128(H) 70 - 100 mg/dL 10/18/2025 1:15 PM EST [facility] Blood 10/18/2025 1:15 PM EST 10/18/2025 1:15 PM EST Vani Winkler MD POINT OF CARE TEST ORDERABLE S Final Result [facility] [address] [facility]. [address] * (ABNORMAL) POC Glucose Monitoring Device (10/18/2025 12:12 PM EST) POC Glucose Monitoring Device 124(H) 70 - 100 mg/dL 10/18/2025 12:13 PM EST [facility] Blood 10/18/2025 12:1 2 PM EST 10/18/2025 12:13 PM EST Vani Winkler MD POINT OF CARE TEST ORDERABLE S Final Result [facility] [address] [place] [address], [facility] * Prepare Fresh Frozen Plasma (10/18/2025 11:58 AM EST) Product Code [id number] HCLL Unit Number [id number] HCLL Dispense Status Released from Crossmatch_RE HCLL Blood Expiration Date HCLL Coding System [id number] HCLL Product Code Q7606N09 HCLL Unit Number [id number] HCLL Dispense Status Released from Crossmatch_RE HCLL Blood Expiration Date HCLL Coding System [id number] HCLL Product Code U4488F14 HCLL Unit Number [id number] HCLL Dispense Status Released from Crossmatch_RE HCLL Blood Expiration Date HCLL Coding System [id number] HCLL Product Code T1546K92 HCLL Unit Number [id number] HCLL Dispense Status Released from Crossmatch_RE HCLL Blood Expiration Date HCLL Coding System [id number] HCLL Product Code Q2971B57 HCLL Unit Number [id number] HCLL Dispense Status Released from Crossmatch_RE HCLL Blood Expiration Date HCLL Coding System IRFQ533 HCLL us Attending Provider Unknown BLOOD BANK PRODUCT OR DERABLES Final Result HCLL * Lactic Acid (10/18/2025 11:21 AM EST) Lactate 0.7 0.5 - 2.2 mmol/L 10/18/2025 12:05 PM EST [facility] Plasma 10/18/2025 11:2 1 AM EST 10/18/2025 11:25 AM EST Aspen Parr MD LAB BLOOD ORDERABLES Final Resul t [facility] [address] [facility] * Magnesium (10/18/2025 11:21 AM EST) Magnesium 2.0 1.5 - 2.5 mg/dL 10/18/2025 12:23 PM EST [facility] Plasma 10/18/2025 11:2 1 AM EST 10/18/2025 11:25 AM EST us Aspen Parr MD LAB BLOOD ORDERABLES Final Resul t Performing Organization Address City/[facility] Co de Phone Number [facility] [address] * (ABNORMAL) Hepatic Function Panel (10/18/2025 11:21 AM EST) Total Bilirubin 1.3 0.0 - 1.5 mg/dL 10/18/2025 12:23 PM EST [facility] Bilirubin, Direct 0.74(H) 0.00 - 0.40 mg/dL 10/18/2025 12:23 PM EST [facility] AST 1,689(H) 13 - 39 U/L 10/18/2025 12:23 PM EST [facility] ALT 1034(H) 7 - 52 U/L 10/18/2025 12:23 PM EST [facility] Alkaline Phosphatase 60 36 - 125 U/L 10/18/2025 12:23 PM EST [facility] Total Protein 4.3(L) 6.4 - 8.9 g/dL 10/18/2025 12:23 PM EST [facility] Albumin 2.3(L) 3.5 - 5.7 g/dL 10/18/2025 12:23 PM [facility] Bilirubin, Indirect 0.56 0.00 - 1.10 mg/dL 10/18/2025 12:23 PM [facility] Plasma 10/18/2025 11:2 1 AM EST 10/18/2025 11:25 AM EST us Aspen Parr MD LAB BLOOD ORDERABLES Final Resul t [facility] [address] [place] [address], [facility] * (ABNORMAL) Renal Function Panel w/EGFR (10/18/2025 11:21 AM EST) Sodium 146 133 - 146 mmol/L 10/18/2025 12:06 PM [facility] Potassium 3.9 3.5 - 5.3 mmol/L 10/18/2025 12:06 PM [facility] Chloride 114(H) 98 - 110 mmol/L 10/18/2025 12:06 PM [facility] CO2 25 21 - 33 mmol/L 10/18/2025 12:06 PM [facility] Comment:High lactate dehydro genase concentrations in patient samples may cause falsely increased bicarbonate results. If markedly elevated LDH is observed or suspected, please assess results in conjunction with patient`s clinical presentation. In cases of discrepant results, consider evaluating CO2 in with a blood gas order. Anion Gap 7 3 - 16 mmol/L 10/18/2025 12:06 PM [facility] BUN 26(H) 7 - 25 mg/dL 10/18/2025 12:06 PM [facility] Creatinine 1.01 0.60 - 1.30 mg/dL 10/18/2025 12:06 PM [facility] Glucose 113(H) 70 - 100 mg/dL 10/18/2025 12:06 PM [facility] Calcium 7.8(L) 8.6 - 10.3 mg/dL 10/18/2025 12:06 PM [facility] Phosphorus 3.1 2.1 - 4.7 mg/dL 10/18/2025 12:23 PM EST [facility] Albumin 2.3(L) 3.5 - 5.7 g/dL 10/18/2025 12:23 PM EST [facility] Osmolality, Calculated 308(H) 278 - 305 mOsm/kg 10/18/2025 12:06 PM EST [facility] EGFR 83 10/18/2025 12:06 PM EST [facility] Comment:As of 2022, the [...] BLOOD ORDERABLES Final Resul t [facility] [address] [place] [address], [facility] * (ABNORMAL) Protime-INR (10/18/2025 11:21 AM EST) Protime 23.6(H) 12.1 - 15.1 seconds 10/18/2025 11:44 AM EST [facility] INR 2.0(H) 0.9 - 1.1 10/18/2025 11:44 AM EST [facility] Comment: RECOMMENDED THERAPEUTIC RANGES USING INR : Stable oral anticoagulant therapy: 2.0 - 3.0 Mechanical prosthetic heart valve: 2.5 - 3.5 Recurrent acute myocardial infarction: 2.5 - 3.5 Plasma 10/18/2025 11:2 1 AM EST 10/18/2025 11:25 AM EST us Aspen Parr MD LAB BLOOD ORDERABLES Final Resul t [facility] [address] * (ABNORMAL) CBC (10/18/2025 11:21 AM EST) WBC 10.9(H) 3.8 - 10.8 10E3/uL 10/18/2025 11:44 AM EST [facility] RBC 3.10(L) 4.20 - 5.80 10E6/uL 10/18/2025 11:44 AM EST [facility] Hemoglobin 10.2(L) 13.2 - 17.1 g/dL 10/18/2025 11:44 AM EST [facility] Hematocrit 29.0(L) 38.5 - 50.0 % 10/18/2025 11:44 AM EST [facility] MCV 93.7 80.0 - 100.0 fL 10/18/2025 11:44 AM EST [facility] MCH 32.9 27.0 - 33.0 pg 10/18/2025 11:44 AM EST [facility] MCHC 35.1 32.0 - 36.0 g/dL 10/18/2025 11:44 AM [facility] RDW 18.4(H) 11.0 - 15.0 % 10/18/2025 11:44 AM EST [facility] Platelets 29(L) 140 - 400 10E3/uL 10/18/2025 11:44 AM EST [facility] Comment:CNV MPV 7.6 7.5 - 11.5 fL 10/18/2025 11:44 AM [facility] Whole Blood 10/18/2025 11:2 1 AM EST 10/18/2025 11:25 AM EST us Aspen Parr MD LAB BLOOD ORDERABLES Final Resul t [facility] [address] * (ABNORMAL) POC Glucose Monitoring Device (10/18/2025 11:04 AM EST) POC Glucose Monitoring Device 121(H) 70 - 100 mg/dL 10/18/2025 11:05 AM EST [facility] Blood 10/18/2025 11:0 4 AM EST 10/18/2025 11:05 AM EST Vani Winkler MD POINT OF CARE TEST ORDERABLE S Final Result [facility] [address] [facility]. [address] * (ABNORMAL) POC Glucose Monitoring Device (10/18/2025 10:29 AM EST) POC Glucose Monitoring Device 120(H) 70 - 100 mg/dL 10/18/2025 10:34 AM EST [facility] Blood 10/18/2025 10:2 9 AM EST 10/18/2025 10:34 AM EST Vani Winkler MD POINT OF CARE TEST ORDERABLE S Final Result Performing Organization Address [facility] de Phone Number [facility] [address] * US Duplex Oqn-Ara-Roeisyx Comp (10/18/2025 9:35 AM EST) Anatomical Region [...] EXAM: US ABDOMEN LIMITED EXAM: US DUPLEX [id number] COMPLETE INDICATION: Post-op liver transplant Day 1 [...] EXAM: US ABDOMEN LIMITED EXAM: US DUPLEX [id number] COMPLETE INDICATION: Post-op liver transplant Day 1 [...] with normal waveforms.. Report Verified by: Balwinder Sáurez MD at 10/18/2025 9:53 AM EST Aspen Parr MD [facility] US ORDERABLES Final Result [...] EXAM: US ABDOMEN LIMITED EXAM: US DUPLEX [id number] COMPLETE INDICATION: Post-op liver transplant Day 1 [...] EXAM: US ABDOMEN LIMITED EXAM: US DUPLEX [id number] COMPLETE INDICATION: Post-op liver transplant Day 1 [...] 9:53 AM EST us Aspen Parr MD [facility] ORDERABLES Final Result * (ABNORMAL) POC Glucose Monitoring Device (10/18/2025 9:11 AM EST) Pathologist [facility] POC Glucose Monitoring Device 165(H) 70 - 100 mg/dL 10/18/2025 9:13 AM EST [facility] Blood 10/18/2025 9:11 AM EST 10/18/2025 9:12 AM EST us Vani Winkler MD POINT OF CARE TEST ORDERABLE S Final Result [facility] [address] [place] [address], [facility] * (ABNORMAL) POC Glucose Monitoring Device (10/18/2025 7:56 AM EST) POC Glucose Monitoring Device 179(H) 70 - 100 mg/dL 10/18/2025 7:57 AM EST [facility] Blood 10/18/2025 7:56 AM EST 10/18/2025 7:57 AM EST Vani Winkler MD POINT OF CARE TEST ORDERABLE S Final Result [facility] [address] * (ABNORMAL) POC Glucose Monitoring Device (10/18/2025 6:59 AM EST) POC Glucose Monitoring Device 187(H) 70 - 100 mg/dL 10/18/2025 7:00 AM EST [facility] Blood 10/18/2025 6:59 AM EST 10/18/2025 7:00 AM EST Vani Winkler MD POINT OF CARE TEST ORDERABLE S Final Result Performing Organization Address [facility] Co de Phone Number [facility] [address] [facility] * X-ray Portable Chest (10/18/2025 6:37 [...] below level of diaphragms and outside the krzop-be-fybw. Right internal jugular approach pulmonary artery catheter [...] courses below level of diaphragms andoutside the kapqx-wy-ysac. Right internal jugular approach pulmonaryartery catheter projects [...] Units (10/18/2025 6:17 AM EST) Product Code P7759X77 HCLL Unit Number [id number] HCLL Dispense Status Presumed Transfused_PT HCLL Blood Expiration Date HCLL Coding System [id number] HCLL Blood Bank Product Oskar Torres MD BLOOD BANK PRODUCT ORDERABLES Final Result HCLL * Prepare Platelets, leukoreduced, 2 Units (10/18/2025 6:17 AM EST) Product Code VV085A06 HCLL Unit Number [id number] HCLL Dispense Status Presumed Transfused_PT HCLL Blood Expiration Date HCLL Coding System AQJZ654 HCLL Product Code T1961X54 HCLL Unit Number [id number] HCLL Dispense Status Presumed Transfused_PT HCLL Blood Expiration Date HCLL Coding System WPUI375 HCLL Blood Bank Product Slade Munoz MD BLOOD BANK PRODUCT ORDERABLES Fi nal Result HCLL * Prepare RBC, leukoreduced, 5 Units (10/18/2025 6:16 AM EST) Product Code U0132W13 HCLL Unit Number [id number] HCLL Dispense Status Presumed Transfused_PT HCLL Blood Expiration Date HCLL Coding System ZBJP438 HCLL Product Code Z3561C38 HCLL Unit Number [id number] HCLL Dispense Status Presumed Transfused_PT HCLL Blood Expiration Date HCLL Coding System QRLH639 HCLL Product Code K5118N54 HCLL Unit Number [id number] HCLL Dispense Status Presumed Transfused_PT HCLL Blood Expiration Date HCLL Coding System RLRK939 HCLL Product Code E1055Z22 HCLL Unit Number [id number] HCLL Dispense Status Released from Crossmatch_RE HCLL Blood Expiration Date HCLL Coding System SDOR221 HCLL Product Code I4455B39 HCLL Unit Number [id number] HCLL Dispense Status Presumed Transfused_PT HCLL Blood Expiration Date HCLL Coding System EVTX296 HCLL Blood Bank Product Kassi INTERIANO BLOOD BANK PRODUCT ORDERABLES Final Result HCLL * Prepare Cryoprecipitate (10/18/2025 6:15 AM EST) Product Code A7993L09 HCLL Unit Number [id number] HCLL Dispense Status Presumed Transfused_PT HCLL Blood Expiration Date HCLL Coding System HXQG224 HCLL us Attending Provider Unknown BLOOD BANK PRODUCT OR DERABLES Final Result Performing Organization Address [facility] Co de Phone Number HCLL * Prepare Cryoprecipitate, 1 Units (10/18/2025 6:15 AM EST) Product Code O4984T28 HCLL Unit Number [id number] HCLL Dispense Status Presumed Transfused_PT HCLL Blood Expiration Date HCLL Coding System PLFP222 HCLL Blood Bank Product us Oskar Torres MD BLOOD BANK PRODUCT ORDERABLES Final Result Performing Organization Address [facility] de Phone Number HCLL * Prepare Cryoprecipitate, 1 Units (10/18/2025 6:15 AM EST) Product Code E2201M57 HCLL Unit Number [id number] HCLL Dispense Status Presumed Transfused_PT HCLL Blood Expiration Date HCLL Coding System WDDA126 HCLL Product Code W2086M55 HCLL Unit Number [id number] HCLL Dispense Status Presumed Transfused_PT HCLL Blood Expiration Date HCLL Coding System USIM020 HCLL Blood Bank Product us Shannan Salas MD BLOOD BANK PRODUCT ORDERABLE S Final Result Performing Organization Address [facility] de Phone Number HCLL * Prepare Cryoprecipitate, 1 Units (10/18/2025 6:15 AM EST) Product Code G3863C29 HCLL Unit Number [id number] HCLL Dispense Status Presumed Transfused_PT HCLL Blood Expiration Date HCLL Coding System [id number] HCLL Blood Bank Product us Slade Munoz MD BLOOD BANK PRODUCT ORDERABLES Fi nal Result Performing Organization Address [facility]/ZIP Co de Phone Number HCLL * Prepare Cryoprecipitate, 1 Units (10/18/2025 6:15 AM EST) Product Code I7709Z97 HCLL Unit Number [id number] HCLL Dispense Status Presumed Transfused_PT HCLL Blood Expiration Date HCLL Coding System GNFR969 HCLL Blood Bank Product us Slade Munoz MD BLOOD BANK PRODUCT ORDERABLES Fi nal Result Performing Organization Address [facility] de Phone Number HCLL * Prepare RBC, leukoreduced (10/18/2025 6:15 AM EST) Product Code D4363I51 HCLL Unit Number [id number] HCLL Dispense Status Released from Crossmatch_RE HCLL Blood Expiration Date HCLL Coding System KDRJ273 HCLL Product Code D0180L44 HCLL Unit Number [id number] HCLL Dispense Status Released from Crossmatch_RE HCLL Blood Expiration Date HCLL Coding System DGVG626 HCLL Product Code J6933V13 HCLL Unit Number [id number] HCLL Dispense Status Released from Crossmatch_RE HCLL Blood Expiration Date HCLL Coding System XOCE796 HCLL Product Code E5196S42 HCLL Unit Number [id number] HCLL Dispense Status Released from Crossmatch_RE HCLL Blood Expiration Date HCLL Coding System BIWD591 HCLL Product Code E9966X96 HCLL Unit Number [id number] HCLL Dispense Status Presumed Transfused_PT HCLL Blood Expiration Date HCLL Coding System UYJP140 HCLL us Attending Provider Unknown BLOOD BANK PRODUCT OR DERABLES Final Result Performing Organization Address [facility] de Phone Number HCLL * Prepare Fresh Frozen Plasma, 5 Units (10/18/2025 6:15 AM EST) Product Code O6143I50 HCLL Unit Number [id number] HCLL Dispense Status Presumed Transfused_PT HCLL Blood Expiration Date HCLL Coding System VMVQ006 HCLL Product Code E4208K17 HCLL Unit Number [id number] HCLL Dispense Status Presumed Transfused_PT HCLL Blood Expiration Date HCLL Coding System FAHI611 HCLL Product Code J2459K37 HCLL Unit Number [id number] HCLL Dispense Status Presumed Transfused_PT HCLL Blood Expiration Date HCLL Coding System CASU527 HCLL Product Code A1451J65 HCLL Unit Number [id number] HCLL Dispense Status Presumed Transfused_PT HCLL Blood Expiration Date HCLL Coding System PNUU813 HCLL Product Code Z4397C32 HCLL Unit Number [id number] HCLL Dispense Status Presumed Transfused_PT HCLL Blood Expiration Date HCLL Coding System OZSB420 HCLL Blood Bank Product Kassi INTERIANO BLOOD BANK PRODUCT ORDERABLES Final Result HCLL * (ABNORMAL) POC Glucose Monitoring Device (10/18/2025 6:06 AM EST) [facility] POC Glucose Monitoring Device 214(H) 70 - 100 mg/dL 10/18/2025 6:06 AM EST [facility] Blood 10/18/2025 6:06 AM EST 10/18/2025 6:06 AM EST Vani Winkler MD POINT OF CARE TEST ORDERABLE S Final Result [facility] [address] [place] [address], [facility] * (ABNORMAL) Blood gas, arterial (10/18/2025 5:19 AM EST) O2 Sat, Arterial 97 10/18/2025 5:28 AM EST [facility] FIO2 40 10/18/2025 5:28 AM EST [facility] pH, Arterial 7.34(L) 7.35 - 7.45 10/18/2025 5:28 AM EST [facility] pCO2, Arterial 48(H) 35 - 45 mm Hg 10/18/2025 5:28 AM EST [facility] pO2, Arterial 84 80 - 100 mm Hg 10/18/2025 5:28 AM EST [facility] HCO3, Arterial 25 22 - 26 mmol/L 10/18/2025 5:28 AM [facility] CO2 Content,Arteri al 27 23 - 27 mmol/L 10/18/2025 5:28 AM [facility] Base Excess, Arterial -0.2 -2.0 - 3.0 mmol/L 10/18/2025 5:28 AM [facility] %HBO2, Arterial 94.1(L) 95.0 - 98.0 % 10/18/2025 5:28 AM [facility] Carboxyhemoglo bin, Arterial 2.5 % 10/18/2025 5:28 AM [facility] Comment: CARBOXYHEMOGLOBIN (CO) REFERENCE RANGES: Non-Smokers: <2 % Smokers: <8 % TOXIC: >20 % Methemoglobin, Arterial 0.5 0.0 - 1.5 % 10/18/2025 5:28 AM [facility] Blood, Arterial 10/18/2025 5 :19 AM EST 10/18/2025 5:25 AM EST us Vani Winkler MD LAB BLOOD ORDERABLES Final R esult [facility] [address] * Lactic Acid (10/18/2025 5:02 AM EST) Lactate 1.0 0.5 - 2.2 mmol/L 10/18/2025 5:47 AM [facility] Plasma 10/18/2025 5:02 AM EST 10/18/2025 5:09 AM EST us Aspen Parr MD LAB BLOOD ORDERABLES Final Resul t [facility] [address] [facility] * Magnesium (10/18/2025 5:02 AM EST) Magnesium 2.0 1.5 - 2.5 mg/dL 10/18/2025 6:05 AM EST [facility] Plasma 10/18/2025 5:02 AM EST 10/18/2025 5:13 AM EST us Aspen Parr MD LAB BLOOD ORDERABLES Final Resul t Performing Organization Address [facility] Co de Phone Number [facility] [address] * (ABNORMAL) Hepatic Function Panel (10/18/2025 5:02 AM EST) Total Bilirubin 1.5 0.0 - 1.5 mg/dL 10/18/2025 6:05 AM EST [facility] Bilirubin, Direct 0.77(H) 0.00 - 0.40 mg/dL 10/18/2025 6:05 AM EST [facility] AST 2,612(H) 13 - 39 U/L 10/18/2025 6:05 AM EST [facility] ALT 1072(H) 7 - 52 U/L 10/18/2025 6:05 AM EST [facility] Alkaline Phosphatase 50 36 - 125 U/L 10/18/2025 6:05 AM EST [facility] Total Protein 4.0(L) 6.4 - 8.9 g/dL 10/18/2025 6:05 AM EST [facility] Albumin 2.2(L) 3.5 - 5.7 g/dL 10/18/2025 6:05 AM EST [facility] Bilirubin, Indirect 0.73 0.00 - 1.10 mg/dL 10/18/2025 6:05 AM EST [facility] Plasma 10/18/2025 5:02 AM EST 10/18/2025 5:13 AM EST us Aspen Parr MD LAB BLOOD ORDERABLES Final Resul t [facility] [address] [place] [address], [facility] * (ABNORMAL) Renal Function Panel w/EGFR (10/18/2025 5:02 AM EST) Sodium 146 133 - 146 mmol/L 10/18/2025 6:05 AM EST [facility] Potassium 3.4(L) 3.5 - 5.3 mmol/L 10/18/2025 6:05 AM [facility] Chloride 111(H) 98 - 110 mmol/L 10/18/2025 6:05 AM [facility] CO2 26 21 - 33 mmol/L 10/18/2025 6:05 AM [facility] Comment:High lactate dehydro genase concentrations in patient samples may cause falsely increased bicarbonate results. If markedly elevated LDH is observed or suspected, please assess results in conjunction with patient`s clinical presentation. In cases of discrepant results, consider evaluating CO2 in with a blood gas order. Anion Gap 9 3 - 16 mmol/L 10/18/2025 6:05 AM EST [facility] BUN 22 7 - 25 mg/dL 10/18/2025 6:05 AM [facility] Creatinine 0.93 0.60 - 1.30 mg/dL 10/18/2025 6:05 AM [facility] Glucose 193(H) 70 - 100 mg/dL 10/18/2025 6:05 AM [facility] Calcium 7.8(L) 8.6 - 10.3 mg/dL 10/18/2025 6:05 AM [facility] Phosphorus 3.0 2.1 - 4.7 mg/dL 10/18/2025 6:05 AM [facility] Albumin 2.2(L) 3.5 - 5.7 g/dL 10/18/2025 6:05 AM [facility] Osmolality, Calculated 311(H) 278 - 305 mOsm/kg 10/18/2025 6:05 AM [facility] EGFR >90 10/18/2025 6:05 AM EST [facility] Comment: As of 2022, the [...] BLOOD ORDERABLES Final Resul t [facility] [address] * (ABNORMAL) Protime-INR (10/18/2025 5:02 AM EST) Protime 26.0(H) 12.1 - 15.1 seconds 10/18/2025 5:32 AM EST [facility] INR 2.2(H) 0.9 - 1.1 10/18/2025 5:32 AM EST [facility] Comment: RECOMMENDED THERAPEUTIC RANGES USING INR : Stable oral anticoagulant therapy: 2.0 - 3.0 Mechanical prosthetic heart valve: 2.5 - 3.5 Recurrent acute myocardial infarction: 2.5 - 3.5 Plasma 10/18/2025 5:02 AM EST 10/18/2025 5:13 AM EST Aspen Parr MD LAB BLOOD ORDERABLES Final Resul t [facility] [address] [facility]. [address] * (ABNORMAL) CBC (10/18/2025 5:02 AM EST) WBC 7.0 3.8 - 10.8 10E3/uL 10/18/2025 5:27 AM EST [facility] RBC 2.94(L) 4.20 - 5.80 10E6/uL 10/18/2025 5:27 AM EST [facility] Hemoglobin 9.6(L) 13.2 - 17.1 g/dL 10/18/2025 5:27 AM EST [facility] Hematocrit 27.6(L) 38.5 - 50.0 % 10/18/2025 5:27 AM EST [facility] MCV 94.0 80.0 - 100.0 fL 10/18/2025 5:27 AM EST [facility] MCH 32.6 27.0 - 33.0 pg 10/18/2025 5:27 AM EST [facility] MCHC 34.7 32.0 - 36.0 g/dL 10/18/2025 5:27 AM EST [facility] RDW 19.0(H) 11.0 - 15.0 % 10/18/2025 5:27 AM EST [facility] Platelets 36(L) 140 - 400 10E3/uL 10/18/2025 5:27 AM EST [facility] Comment:CNV MPV 8.1 7.5 - 11.5 fL 10/18/2025 5:27 AM [facility] Whole Blood 10/18/2025 5:02 AM EST 10/18/2025 5:13 AM EST Aspen Parr MD LAB BLOOD ORDERABLES Final Resul t [facility] [address] [facility]. [address] * (ABNORMAL) POC Glucose Monitoring Device (10/18/2025 5:00 AM EST) POC Glucose Monitoring Device 231(H) 70 - 100 mg/dL 10/18/2025 5:06 AM EST [facility] Blood 10/18/2025 5:00 AM EST 10/18/2025 5:06 AM EST Vani Winkler MD POINT OF CARE TEST ORDERABLE S Final Result [facility] [address] [facility]. [address] * (ABNORMAL) POC Glucose Monitoring Device (10/18/2025 4:05 AM EST) POC Glucose Monitoring Device 244(H) 70 - 100 mg/dL 10/18/2025 4:06 AM EST [facility] Blood 10/18/2025 4:05 AM EST 10/18/2025 4:06 AM EST Vani Winkler MD POINT OF CARE TEST ORDERABLE S Final Result Performing Organization Address City/[facility]/ZIP Co de Phone Number [facility] [address] [facility]. [address] * (ABNORMAL) POC Glucose Monitoring Device (10/18/2025 3:02 AM EST) POC Glucose Monitoring Device 246(H) 70 - 100 mg/dL 10/18/2025 3:07 AM EST [facility] Blood 10/18/2025 3:02 AM EST 10/18/2025 3:07 AM EST Vani Winkler MD POINT OF CARE TEST ORDERABLE S Final Result [facility] [address] [facility]. [address] * (ABNORMAL) POC Glucose Monitoring Device (10/18/2025 2:05 AM EST) POC Glucose Monitoring Device 249(H) 70 - 100 mg/dL 10/18/2025 2:14 AM EST [facility] Blood 10/18/2025 2:05 AM EST 10/18/2025 2:14 AM EST Vani Winkler MD POINT OF CARE TEST ORDERABLE S Final Result Performing Organization Address [facility] Co de Phone Number [facility] [address] * (ABNORMAL) POC Glucose Monitoring Device (10/18/2025 1:06 AM EST) POC Glucose Monitoring Device 237(H) 70 - 100 mg/dL 10/18/2025 1:07 AM EST [facility] Blood 10/18/2025 1:06 AM EST 10/18/2025 1:07 AM EST Vani Winkler MD POINT OF CARE TEST ORDERABLE S Final Result Performing Organization Address [facility] Co de Phone Number [facility] [address] [facility]. [address] * (ABNORMAL) POC Glucose Monitoring Device (10/17/2025 11:55 PM EST) POC Glucose Monitoring Device 227(H) 70 - 100 mg/dL 10/18/2025 12:06 AM EST [facility] Blood 10/17/2025 11:5 5 PM EST 10/18/2025 12:06 AM EST Vani Winkler MD POINT OF CARE TEST ORDERABLE S Final Result Performing Organization Address [facility] Co de Phone Number [facility] [address] [facility]. [address] * XR Portable Feeding Tube Check [...] 10/17/2025 11:50 PM EST Duarte El MD G DIAGNOSTIC IMAGI NG ORDERABLES Final Result * [...] mg/dL 10/17/2025 11:15 PM EST [facility] Comment:Free calcium levels vary inversely with pH by approximately 5% for each 0.1 unit of pH change. Assay results have been normalized to pH = 7.40. Serum 10/17/2025 10:5 0 PM EST 10/17/2025 10:55 PM EST Narrative [facility] - 10/17/2025 11:15 PM EST This test has been developed and its performance characteristics determined by [facility] which is certified under the [...] LAB BLOOD ORDERABLES Final Result [facility] [address] [place] [address], [facility] * (ABNORMAL) TEG-Standard Global Hemostasis (Rapid TEG with Heparin Effect, Contains a Baseline TEG) (10/17/2025 10:50 PM EST) Citrated Kaolin Reaction Time (TEGHEPARINASE) 12.7(H) 4.6 - 9.1 minutes 10/18/2025 12:03 AM EST [facility] Citrated Rapid Teg Maximum Amplitude (TEGHEPARINASE) 47.8(L) 52.0 - 70.0 mm 10/18/2025 12:03 AM EST [facility] Citrated Functional Fibrinogen Maximum Amplitude (TEGHEPARINASE) 16.8 15.0 - 32.0 mm 10/18/2025 12:03 AM EST [facility] Citrated Kaolin W/Heparinase Reaction Time (TEGHEPARINASE) 11.0(H) 4.3 - 8.3 minutes 10/18/2025 12:03 AM EST [facility] Citrated Kaolin K-Time (TEGHEPARINASE) 4.9(H) 0.8 - 2.1 minutes 10/18/2025 12:03 AM EST [facility] Citrated Kaolin Angle (TEGHEPARINASE) 40.0(L) 63.0 - 78.0 degrees 10/18/2025 12:03 AM EST [facility] Citrated Kaolin Maximum Amplitude (TEGHEPARINASE) 45.2(L) 52.0 - 69.0 mm 10/18/2025 12:03 AM EST [facility] Citrated Functional Fibrinogen- Fibrinogen Level (TEGHEPARINASE) 306.6 278.0 - 581.0 mg/dL 10/18/2025 12:03 AM EST [facility] Whole Blood (Citrate) 10/17/2025 10:50 PM EST 10/17/2025 10:55 PM EST Aspen Parr MD LAB BLOOD ORDERABLES Final Resul t Performing Organization Address City/[facility] Co de Phone Number [facility] [address] [place] [address] * Lactic Acid (10/17/2025 10:50 PM EST) [facility] Signature Lactate 1.1 0.5 - 2.2 mmol/L 10/17/2025 11:51 PM EST [facility] Plasma 10/17/2025 10:5 0 PM EST 10/17/2025 10:55 PM EST Aspen Parr MD LAB BLOOD ORDERABLES Final Resul t Performing Organization Address [facility] Co de Phone Number [facility] [address] * Fibrinogen (10/17/2025 10:50 PM EST) Fibrinogen 253 218 - 406 mg/dL 10/17/2025 11:06 PM EST [facility] Plasma 10/17/2025 10:5 0 PM EST 10/17/2025 10:55 PM EST Aspen Parr MD LAB BLOOD ORDERABLES Final Resul t Performing Organization Address [facility] Phone Number [facility] [address] [place] [address]. [address] * (ABNORMAL) Protime-INR (10/17/2025 10:50 PM EST) Protime 25.2(H) 12.1 - 15.1 seconds 10/17/2025 11:06 PM EST [facility] INR 2.1(H) 0.9 - 1.1 10/17/2025 11:06 PM EST [facility] Comment: RECOMMENDED THERAPEUTIC RANGES USING INR : Stable oral anticoagulant therapy: 2.0 - 3.0 Mechanical prosthetic heart valve: 2.5 - 3.5 Recurrent acute myocardial infarction: 2.5 - 3.5 Plasma 10/17/2025 10:5 0 PM EST 10/17/2025 10:55 PM EST Aspen Parr MD LAB BLOOD ORDERABLES Final Resul t Performing Organization Address [facility] de Phone Number [facility] [address] [place] [address]. [address] * (ABNORMAL) Blood gas, arterial (10/17/2025 10:50 PM EST) O2 Sat, Arterial 100 10/17/2025 11:00 PM EST [facility] FIO2 80 fio2 10/17/2025 11:00 PM EST [facility] pH, Arterial 7.38 7.35 - 7.45 10/17/2025 11:00 PM EST [facility] pCO2, Arterial 41 35 - 45 mm Hg 10/17/2025 11:00 PM EST [facility] pO2, Arterial 216(H) 80 - 100 mm Hg 10/17/2025 11:00 PM EST [facility] HCO3, Arterial 24 22 - 26 mmol/L 10/17/2025 11:00 PM EST [facility] CO2 Content,Arteri al 26 23 - 27 mmol/L 10/17/2025 11:00 PM EST [facility] Base Excess, Arterial -0.8 -2.0 - 3.0 mmol/L 10/17/2025 11:00 PM EST [facility] %HBO2, Arterial 95.2 95.0 - 98.0 % 10/17/2025 11:00 PM EST [facility] Carboxyhemoglo bin, Arterial 3.3 % 10/17/2025 11:00 PM EST [facility] Comment: CARBOXYHEMOGLOBIN (CO) REFERENCE RANGES: Non-Smokers: <2 % Smokers: <8 % TOXIC: >20 % Methemoglobin, Arterial 1.6(H) 0.0 - 1.5 % 10/17/2025 11:00 PM EST [facility] Blood, Arterial 10/17/2025 1 0:50 PM EST 10/17/2025 10:55 PM EST Aspen Parr MD LAB BLOOD ORDERABLES Final Resul t Performing Organization Address City/[facility] Co de Phone Number [facility] [address] [facility]. [address] * Magnesium (10/17/2025 10:50 PM EST) Magnesium 1.8 1.5 - 2.5 mg/dL 10/18/2025 12:13 AM EST [facility] Plasma 10/17/2025 10:5 0 PM EST 10/17/2025 10:55 PM EST Aspen Parr MD LAB BLOOD ORDERABLES Final Resul t Performing Organization Address [facility] Co de Phone Number [facility] [address] [facility]. [address] * (ABNORMAL) Hepatic Function Panel (10/17/2025 10:50 PM EST) Total Bilirubin 4.5(H) 0.0 - 1.5 mg/dL 10/18/2025 12:13 AM EST [facility] Bilirubin, Direct 3.22(H) 0.00 - 0.40 mg/dL 10/18/2025 12:13 AM EST [facility] AST 3,332(H) 13 - 39 U/L 10/18/2025 12:13 AM EST [facility] ALT 1141(H) 7 - 52 U/L 10/18/2025 12:13 AM EST [facility] Alkaline Phosphatase 63 36 - 125 U/L 10/18/2025 12:13 AM EST [facility] Total Protein 4.0(L) 6.4 - 8.9 g/dL 10/18/2025 12:13 AM EST [facility] Albumin 2.2(L) 3.5 - 5.7 g/dL 10/18/2025 12:13 AM EST [facility] Bilirubin, Indirect 1.28(H) 0.00 - 1.10 mg/dL 10/18/2025 12:13 AM EST [facility] Plasma 10/17/2025 10:5 0 PM EST 10/17/2025 10:55 PM EST us Aspen Parr MD LAB BLOOD ORDERABLES Final Resul t [facility] [address] * (ABNORMAL) Renal Function Panel w/EGFR (10/17/2025 10:50 PM EST) Sodium 145 133 - 146 mmol/L 10/18/2025 12:13 AM EST [facility] Potassium 3.7 3.5 - 5.3 mmol/L 10/18/2025 12:13 AM EST [facility] Chloride 110 98 - 110 mmol/L 10/18/2025 12:13 AM EST [facility] CO2 27 21 - 33 mmol/L 10/18/2025 12:13 AM EST [facility] Comment:High lactate dehydro genase concentrations in patient samples may cause falsely increased bicarbonate results. If markedly elevated LDH is observed or suspected, please assess results in conjunction with patient`s clinical presentation. In cases of discrepant results, consider evaluating CO2 in with a blood gas order. Anion Gap 8 3 - 16 mmol/L 10/18/2025 12:13 AM EST [facility] BUN 17 7 - 25 mg/dL 10/18/2025 12:13 AM EST [facility] Creatinine 0.79 0.60 - 1.30 mg/dL 10/18/2025 12:13 AM EST [facility] Glucose 225(H) 70 - 100 mg/dL 10/18/2025 12:13 AM EST [facility] Calcium 8.2(L) 8.6 - 10.3 mg/dL 10/18/2025 12:13 AM EST [facility] Phosphorus 3.9 2.1 - 4.7 mg/dL 10/18/2025 12:13 AM EST [facility] Albumin 2.2(L) 3.5 - 5.7 g/dL 10/18/2025 12:13 AM EST [facility] Osmolality, Calculated 309(H) 278 - 305 mOsm/kg 10/18/2025 12:13 AM EST [facility] EGFR >90 10/18/2025 12:13 AM [facility] Comment: As of 2022, the [...] BLOOD ORDERABLES Final Resul t [facility] [address] * (ABNORMAL) CBC (10/17/2025 10:50 PM EST) WBC 5.8 3.8 - 10.8 10E3/uL 10/17/2025 11:03 PM EST [facility] RBC 2.93(L) 4.20 - 5.80 10E6/uL 10/17/2025 11:03 PM EST [facility] Hemoglobin 9.5(L) 13.2 - 17.1 g/dL 10/17/2025 11:03 PM EST [facility] Hematocrit 27.5(L) 38.5 - 50.0 % 10/17/2025 11:03 PM EST [facility] MCV 93.9 80.0 - 100.0 fL 10/17/2025 11:03 PM EST [facility] MCH 32.6 27.0 - 33.0 pg 10/17/2025 11:03 PM EST [facility] MCHC 34.7 32.0 - 36.0 g/dL 10/17/2025 11:03 PM EST [facility] RDW 18.1(H) 11.0 - 15.0 % 10/17/2025 11:03 PM EST [facility] Platelets 52(L) 140 - 400 10E3/uL 10/17/2025 11:03 PM EST [facility] MPV 7.1(L) 7.5 - 11.5 fL 10/17/2025 11:03 PM EST [facility] Whole Blood 10/17/2025 10:5 0 PM EST 10/17/2025 10:55 PM EST Aspen Parr MD LAB BLOOD ORDERABLES Final Resul t [facility] [address] [facility]. [address] * (ABNORMAL) POC Glucose Monitoring Device (10/17/2025 10:47 PM EST) POC Glucose Monitoring Device 234(H) 70 - 100 mg/dL 10/17/2025 10:48 PM EST [facility] Blood 10/17/2025 10:4 7 PM EST 10/17/2025 10:47 PM EST Vani Winkler MD POINT OF CARE TEST ORDERABLE S Final Result Performing Organization Address City/[facility]/ZIP Co de Phone Number [facility] [address] [place] [address]. [address] * POC Sample Type (10/17/2025 9:25 PM EST) POC Sample Type Arterial 10/17/2025 9:51 PM EST [facility] Blood, Arterial 10/17/2025 9 :25 PM EST 10/17/2025 9:51 PM EST Vani Winkler MD POINT OF CARE TEST ORDERABLE S Final Result Performing Organization Address City/[facility] Co de Phone Number [facility] [address] [facility]. [address] * POC Anion Gap (10/17/2025 9:25 PM EST) Pathologist [facility] POC Anion Gap, Arterial 9 3 - 16 mmol/L 10/17/2025 9:51 PM EST [facility] Blood, Arterial 10/17/2025 9 :25 PM EST 10/17/2025 9:51 PM EST Vani Winkler MD POINT OF CARE TEST ORDERABLE S Final Result Performing Organization Address City/[facility]/ZIP Co de Phone Number [facility] [address] [facility]. [address] * (ABNORMAL) POC Chloride (10/17/2025 9:25 PM EST) POC Chloride 111(H) 98 - 110 mmol/L 10/17/2025 9:51 PM EST [facility] Blood, Arterial 10/17/2025 9 :25 PM EST 10/17/2025 9:51 PM EST Vani Winkler MD POINT OF CARE TEST ORDERABLE S Final Result Performing Organization Address City/[facility] Co de Phone Number [facility] [address] [facility]. [address] * (ABNORMAL) POC Hemoglobin (10/17/2025 9:25 PM EST) POC Hemoglobin 9.0(L) 14.0 - 18.0 g/dL 10/17/2025 9:51 PM EST [facility] Blood, Arterial 10/17/2025 9 :25 PM EST 10/17/2025 9:51 PM EST Vani Winkler MD POINT OF CARE TEST ORDERABLE S Final Result Performing Organization Address [facility] Co de Phone Number [facility] [address] * (ABNORMAL) POC hematocrit (10/17/2025 9:25 PM EST) POC Hematocrit 26.0(L) 40 - 52 % 10/17/2025 9:51 PM EST [facility] Blood, Arterial 10/17/2025 9 :25 PM EST 10/17/2025 9:51 PM EST Vani Winkler MD POINT OF CARE TEST ORDERABLE S Final Result Performing Organization Address City/[facility] Co de Phone Number [facility] [address] [facility]. [address] * POC Lactate (10/17/2025 9:25 PM EST) POC Lactate 1.50 0.50 - 2.20 mmol/L 10/17/2025 9:51 PM EST [facility] Blood, Arterial 10/17/2025 9 :25 PM EST 10/17/2025 9:51 PM EST Vani Winkler MD POINT OF CARE TEST ORDERABLE S Final Result [facility] [address] * (ABNORMAL) POC Glucose (10/17/2025 9:25 PM EST) POC Glucose, Arterial 227(H) 70 - 100 mg/dL 10/17/2025 9:51 PM EST [facility] Blood, Arterial 10/17/2025 9 :25 PM EST 10/17/2025 9:51 PM EST us Vani Winkler MD POINT OF CARE TEST ORDERABLE S Final Result Performing Organization Address [facility]/ZIP Co de Phone Number [facility] [address] * POC Ionized Calcium (10/17/2025 9:25 PM EST) POC Ionized Calcium 4.90 4.50 - 5.30 mg/dL 10/17/2025 9:51 PM EST [facility] Blood, Arterial 10/17/2025 9 :25 PM EST 10/17/2025 9:51 PM EST us Vani Winkler MD POINT OF CARE TEST ORDERABLE S Final Result Performing Organization Address City/[facility]/ZIP Co de Phone Number [facility] [address] * POC Potassium (10/17/2025 9:25 PM EST) POC Potassium 3.7 3.5 - 5.3 mmol/L 10/17/2025 9:51 PM EST [facility] Blood, Arterial 10/17/2025 9 :25 PM EST 10/17/2025 9:51 PM EST us Vani Winkler MD POINT OF CARE TEST ORDERABLE S Final Result [facility] [address] * POC Sodium (10/17/2025 9:25 PM EST) POC Sodium 142 136 - 146 mmol/L 10/17/2025 9:51 PM EST [facility] Blood, Arterial 10/17/2025 9 :25 PM EST 10/17/2025 9:51 PM EST Vani Winkler MD POINT OF CARE TEST ORDERABLE S Final Result [facility] [address] * POC TCO2 (10/17/2025 9:25 PM EST) POC TCO2, Arterial 23 23 - 27 mmol/L 10/17/2025 9:51 PM EST [facility] Blood, Arterial 10/17/2025 9 :25 PM EST 10/17/2025 9:51 PM EST Vani Winkler MD POINT OF CARE TEST ORDERABLE S Final Result [facility] [address] [facility]. [address] * (ABNORMAL) POC O2 SAT (10/17/2025 9:25 PM EST) POC O2 Saturation, Arterial 99(H) 95 - 98 % 10/17/2025 9:51 PM EST [facility] Blood, Arterial 10/17/2025 9 :25 PM EST 10/17/2025 9:51 PM EST Vani Winkler MD POINT OF CARE TEST ORDERABLE S Final Result [facility] [address] * (ABNORMAL) POC Base Excess (10/17/2025 9:25 PM EST) POC Base Excess, Arterial -3(L) -2 - 3 mmol/L 10/17/2025 9:51 PM EST [facility] Blood, Arterial 10/17/2025 9 :25 PM EST 10/17/2025 9:51 PM EST Vani Winkler MD POINT OF CARE TEST ORDERABLE S Final Result [facility] [address] [facility] * POC HCO3 (10/17/2025 9:25 PM EST) POC HCO3, Arterial 22 22 - 26 mmol/L 10/17/2025 9:51 PM EST [facility] Blood, Arterial 10/17/2025 9 :25 PM EST 10/17/2025 9:51 PM EST Vani Winkler MD POINT OF CARE TEST ORDERABLE S Final Result Performing Organization Address City/[facility] Co de Phone Number [facility] [address] [facility] * (ABNORMAL) POC PO2 (10/17/2025 9:25 PM EST) POC pO2, Arterial 161(H) 80 - 100 mm Hg 10/17/2025 9:51 PM EST [facility] Blood, Arterial 10/17/2025 9 :25 PM EST 10/17/2025 9:51 PM EST Vani Winkler MD POINT OF CARE TEST ORDERABLE S Final Result Performing Organization Address City/[facility] Co de Phone Number [facility] [address] [facility] * POC PCO2 (10/17/2025 9:25 PM EST) POC pCO2, Arterial 38 35 - 45 mm Hg 10/17/2025 9:51 PM EST [facility] Blood, Arterial 10/17/2025 9 :25 PM EST 10/17/2025 9:51 PM EST Vani Winkler MD POINT OF CARE TEST ORDERABLE S Final Result Performing Organization Address [facility] Co de Phone Number [facility] [address] * POC pH (10/17/2025 9:25 PM EST) POC pH, Arterial 7.37 7.35 - 7.45 10/17/2025 9:51 PM EST [facility] Blood, Arterial 10/17/2025 9:25 PM EST 10/17/2025 9:51 PM EST Vani Winkler MD POINT OF CARE TEST ORDERABLE S Final Result Performing Organization Address [facility] de Phone Number [facility] [address] [facility] * (ABNORMAL) POC INR (10/17/2025 9:24 PM EST) Prothrombin Time INR, POC 2.3(H) 0.8 - 1.4 10/18/2025 12:08 AM EST [facility] Comment: Test results may [...] ORDERABLE S Final Result Performing Organization Address [facility] Co de Phone Number [facility] [address] [facility] * Transfuse Fresh Frozen Plasma (10/17/2025 9:17 PM EST) Result Neto Salas MD NURSING TREATMENT ORDERABLES - BLOOD ADMIN Final Result * Transfuse Platelets (10/17/2025 9:01 PM EST) Result Neto Munoz MD NURSING TREATMENT ORDERABLES - B LOOD ADMIN Final Result * Transfuse Cryoprecipitate (10/17/2025 8:49 PM EST) Result Neto Munoz MD NURSING TREATMENT ORDERABLES - B LOOD ADMIN Final Result * Transfuse Cryoprecipitate (10/17/2025 8:46 PM EST) Result Neto Munoz MD NURSING TREATMENT ORDERABLES - B LOOD ADMIN Final Result * (ABNORMAL) TEG-Bypass/ECMO/Liver HN (Factor function, Platelet/Fibrin Clot Strength w/Clot Breakdown, Heparinase In All Channels) (10/17/2025 8:31 PM EST) [facility] Citrated Kaolin Reaction Time (TEGECMOLIVER) 9.7(H) 4.6 - 9.1 minutes 10/17/2025 10:13 PM [facility] Citrated Kaolin W/Heparinase Reaction Time (TEGECMOLIVER) 3.4(L) 4.3 - 8.3 minutes 10/17/2025 10:[address] [facility] Citrated Kaolin Maximum Amplitude (TEGECMOLIVER) 45.4(L) 52.0 - 69.0 mm 10/17/2025 10:[address] [facility] Citrated Functional Fibrinogen W/Heparinase Maximum Amplitude(TEGEC MOLIVER) 18.0 15.0 - 34.0 mm 10/17/2025 10:[address] [facility] Citrated Rapid Teg W/Heparinase Maximum Amplitude (TEGECMOLIVER) 40.5(L) 53.0 - 69.0 mm 10/17/2025 10:[address] [facility] Citrated Kaolin w/Heparinase Percent Lysis (TEGECMOLIVER) 0.0 0.0 - 3.2 % 10/17/2025 10:[address] [facility] Whole Blood (Citrate) 10/17/2025 8:31 PM EST 10/17/2025 8:40 PM EST Oskar Torres MD LAB BLOOD ORDERABLES Final Re sult Performing Organization Address [facility] Co de Phone Number [facility] [address] * (ABNORMAL) Fibrinogen (10/17/2025 8:31 PM EST) Fibrinogen 157(L) 218 - 406 mg/dL 10/17/2025 9:00 PM EST [facility] Plasma 10/17/2025 8:31 PM EST 10/17/2025 8:40 PM EST us Oskar Torres MD LAB BLOOD ORDERABLES Final Re sult Performing Organization Address [facility] Co de Phone Number [facility] [address] [facility] * POC Sample Type (10/17/2025 8:22 PM EST) POC Sample Type Arterial 10/17/2025 8:24 PM EST [facility] Blood, Arterial 10/17/2025 8 :22 PM EST 10/17/2025 8:24 PM EST us Vani Winkler MD POINT OF CARE TEST ORDERABLE S Final Result Performing Organization Address [facility] Co de Phone Number [facility] [address] [facility] * POC Anion Gap (10/17/2025 8:22 PM EST) POC Anion Gap, Arterial 11 3 - 16 mmol/L 10/17/2025 8:24 PM EST [facility] Blood, Arterial 10/17/2025 8 :22 PM EST 10/17/2025 8:24 PM EST Vani Winkler MD POINT OF CARE TEST ORDERABLE S Final Result [facility] [address] * POC Chloride (10/17/2025 8:22 PM EST) POC Chloride 108 98 - 110 mmol/L 10/17/2025 8:24 PM EST [facility] Blood, Arterial 10/17/2025 8 :22 PM EST 10/17/2025 8:24 PM EST Vani Winkler MD POINT OF CARE TEST ORDERABLE S Final Result [facility] [address] * (ABNORMAL) POC Hemoglobin (10/17/2025 8:22 PM EST) Pathologist [facility] POC Hemoglobin 9.5(L) 14.0 - 18.0 g/dL 10/17/2025 8:24 PM EST [facility] Blood, Arterial 10/17/2025 8 :22 PM EST 10/17/2025 8:24 PM EST Vani Winkler MD POINT OF CARE TEST ORDERABLE S Final Result [facility] [address] * (ABNORMAL) POC hematocrit (10/17/2025 8:22 PM EST) Pathologist [facility] POC Hematocrit 28.0(L) 40 - 52 % 10/17/2025 8:24 PM EST [facility] Blood, Arterial 10/17/2025 8 :22 PM EST 10/17/2025 8:24 PM EST Vani Winkler MD POINT OF CARE TEST ORDERABLE S Final Result [facility] [address] * POC Lactate (10/17/2025 8:22 PM EST) POC Lactate 1.62 0.50 - 2.20 mmol/L 10/17/2025 8:24 PM EST [facility] Blood, Arterial 10/17/2025 8 :22 PM EST 10/17/2025 8:24 PM EST Vani Winkler MD POINT OF CARE TEST ORDERABLE S Final Result [facility] [address] [facility] * (ABNORMAL) POC Glucose (10/17/2025 8:22 PM EST) Pathologist [facility] POC Glucose, Arterial 218(H) 70 - 100 mg/dL 10/17/2025 8:24 PM EST [facility] Blood, Arterial 10/17/2025 8 :22 PM EST 10/17/2025 8:24 PM EST Vani Winkler MD POINT OF CARE TEST ORDERABLE S Final Result Performing Organization Address City/[facility]/ZIP Co de Phone Number [facility] [address] [facility] * POC Ionized Calcium (10/17/2025 8:22 PM EST) Pathologist [facility] POC Ionized Calcium 4.80 4.50 - 5.30 mg/dL 10/17/2025 8:24 PM EST [facility] Blood, Arterial 10/17/2025 8 :22 PM EST 10/17/2025 8:24 PM EST Vani Winkler MD POINT OF CARE TEST ORDERABLE S Final Result [facility] [address] [facility] * POC Potassium (10/17/2025 8:22 PM EST) Pathologist [facility] POC Potassium 3.8 3.5 - 5.3 mmol/L 10/17/2025 8:24 PM EST [facility] Blood, Arterial 10/17/2025 8 :22 PM EST 10/17/2025 8:24 PM EST Vani Winkler MD POINT OF CARE TEST ORDERABLE S Final Result [facility] [address] [facility]. [address] * POC Sodium (10/17/2025 8:22 PM EST) POC Sodium 143 136 - 146 mmol/L 10/17/2025 8:24 PM EST [facility] Blood, Arterial 10/17/2025 8 :22 PM EST 10/17/2025 8:24 PM EST Vani Winkler MD POINT OF CARE TEST ORDERABLE S Final Result [facility] [address] [facility]. [address] * POC TCO2 (10/17/2025 8:22 PM EST) POC TCO2, Arterial 25 23 - 27 mmol/L 10/17/2025 8:24 PM EST [facility] Blood, Arterial 10/17/2025 8 :22 PM EST 10/17/2025 8:24 PM EST Vani Winkler MD POINT OF CARE TEST ORDERABLE S Final Result [facility] [address] [facility]. [address] * (ABNORMAL) POC O2 SAT (10/17/2025 8:22 PM EST) POC O2 Saturation, Arterial 99(H) 95 - 98 % 10/17/2025 8:24 PM EST [facility] Blood, Arterial 10/17/2025 8 :22 PM EST 10/17/2025 8:24 PM EST Vani Winkler MD POINT OF CARE TEST ORDERABLE S Final Result [facility] [address] [place] [address]. [address] * POC Base Excess (10/17/2025 8:22 PM EST) POC Base Excess, Arterial -1 -2 - 3 mmol/L 10/17/2025 8:24 PM EST [facility] Blood, Arterial 10/17/2025 8 :22 PM EST 10/17/2025 8:24 PM EST us Vani Winkler MD POINT OF CARE TEST ORDERABLE S Final Result Performing Organization Address City/[facility] Co de Phone Number [facility] [address] [facility] * POC HCO3 (10/17/2025 8:22 PM EST) POC HCO3, Arterial 24 22 - 26 mmol/L 10/17/2025 8:24 PM EST [facility] Blood, Arterial 10/17/2025 8 :22 PM EST 10/17/2025 8:24 PM EST Vani Winkler MD POINT OF CARE TEST ORDERABLE S Final Result [facility] [address] [place] [address]. [address] * (ABNORMAL) POC PO2 (10/17/2025 8:22 PM EST) POC pO2, Arterial 131(H) 80 - 100 mm Hg 10/17/2025 8:24 PM EST [facility] Blood, Arterial 10/17/2025 8 :22 PM EST 10/17/2025 8:24 PM EST Vani Winkler MD POINT OF CARE TEST ORDERABLE S Final Result [facility] [address] * POC PCO2 (10/17/2025 8:22 PM EST) POC pCO2, Arterial 41 35 - 45 mm Hg 10/17/2025 8:24 PM EST [facility] Blood, Arterial 10/17/2025 8 :22 PM EST 10/17/2025 8:24 PM EST Vani Winkler MD POINT OF CARE TEST ORDERABLE S Final Result Performing Organization Address City/[facility]/ZIP Co de Phone Number [facility] [address] * POC pH (10/17/2025 8:22 PM EST) POC pH, Arterial 7.37 7.35 - 7.45 10/17/2025 8:24 PM EST [facility] Blood, Arterial 10/17/2025 8 :22 PM EST 10/17/2025 8:24 PM EST Vani Winkler MD POINT OF CARE TEST ORDERABLE S Final Result Performing Organization Address City/[facility]/ZIP Co de Phone Number [facility] [address] * (ABNORMAL) POC INR (10/17/2025 8:21 [...] 8:21 PM EST 10/18/2025 12:07 AM EST Result Neto Winkler MD POINT OF CARE TEST ORDERABLE S Final Result Performing Organization Address [facility] Co de Phone Number [facility] [address] [facility] * Transfuse Fresh Frozen Plasma (10/17/2025 [...] POC Sample Type (10/17/2025 7:26 PM EST) Pathologist [facility] POC Sample Type Arterial 10/17/2025 7:30 PM EST [facility] Blood, Arterial 10/17/2025 7 :26 PM EST 10/17/2025 7:30 PM EST Result Neto Winkler MD POINT OF CARE TEST ORDERABLE S Final Result Performing Organization Address City/[facility] Co de Phone Number [facility] [address] [facility]. [address] * POC Anion Gap (10/17/2025 7:26 PM EST) POC Anion Gap, Arterial 11 3 - 16 mmol/L 10/17/2025 7:30 PM EST [facility] Blood, Arterial 10/17/2025 7 :26 PM EST 10/17/2025 7:30 PM EST us Vani Winkler MD POINT OF CARE TEST ORDERABLE S Final Result [facility] [address] [facility] * POC Chloride (10/17/2025 7:26 PM EST) POC Chloride 109 98 - 110 mmol/L 10/17/2025 7:30 PM EST [facility] Blood, Arterial 10/17/2025 7 :26 PM EST 10/17/2025 7:30 PM EST us Vani Winkler MD POINT OF CARE TEST ORDERABLE S Final Result Performing Organization Address [facility] Co de Phone Number [facility] [address] [facility] * (ABNORMAL) POC Hemoglobin (10/17/2025 7:26 PM EST) POC Hemoglobin 8.6(L) 14.0 - 18.0 g/dL 10/17/2025 7:30 PM EST [facility] Blood, Arterial 10/17/2025 7 :26 PM EST 10/17/2025 7:30 PM EST us Vani Winkler MD POINT OF CARE TEST ORDERABLE S Final Result Performing Organization Address City/[facility]/ZIP Co de Phone Number [facility] [address] [facility] * (ABNORMAL) POC hematocrit (10/17/2025 7:26 PM EST) POC Hematocrit 25.0(L) 40 - 52 % 10/17/2025 7:30 PM EST [facility] Blood, Arterial 10/17/2025 7 :26 PM EST 10/17/2025 7:30 PM EST us Vani Winkler MD POINT OF CARE TEST ORDERABLE S Final Result [facility] [address] * POC Lactate (10/17/2025 7:26 PM EST) POC Lactate 2.16 0.50 - 2.20 mmol/L 10/17/2025 7:30 PM EST [facility] Blood, Arterial 10/17/2025 7 :26 PM EST 10/17/2025 7:30 PM EST Vani Winkler MD POINT OF CARE TEST ORDERABLE S Final Result [facility] [address] * (ABNORMAL) POC Glucose (10/17/2025 7:26 PM EST) POC Glucose, Arterial 207(H) 70 - 100 mg/dL 10/17/2025 7:30 PM EST [facility] Blood, Arterial 10/17/2025 7 :26 PM EST 10/17/2025 7:30 PM EST Vani Winkler MD POINT OF CARE TEST ORDERABLE S Final Result [facility] [address] [facility]. [address] * (ABNORMAL) POC Ionized Calcium (10/17/2025 7:26 PM EST) POC Ionized Calcium 5.40(H) 4.50 - 5.30 mg/dL 10/17/2025 7:30 PM EST [facility] Blood, Arterial 10/17/2025 7 :26 PM EST 10/17/2025 7:30 PM EST Vani Winkler MD POINT OF CARE TEST ORDERABLE S Final Result [facility] [address] * POC Potassium (10/17/2025 7:26 PM EST) POC Potassium 3.9 3.5 - 5.3 mmol/L 10/17/2025 7:30 PM EST [facility] Blood, Arterial 10/17/2025 7 :26 PM EST 10/17/2025 7:30 PM EST Vani Winkler MD POINT OF CARE TEST ORDERABLE S Final Result [facility] [address] [facility] * POC Sodium (10/17/2025 7:26 PM EST) Pathologist [facility] POC Sodium 143 136 - 146 mmol/L 10/17/2025 7:30 PM EST [facility] Blood, Arterial 10/17/2025 7 :26 PM EST 10/17/2025 7:30 PM EST Vani Winkler MD POINT OF CARE TEST ORDERABLE S Final Result [facility] [address] [facility] * POC TCO2 (10/17/2025 7:26 PM EST) Pathologist [facility] POC TCO2, Arterial 24 23 - 27 mmol/L 10/17/2025 7:30 PM EST [facility] Blood, Arterial 10/17/2025 7 :26 PM EST 10/17/2025 7:30 PM EST Vani Winkler MD POINT OF CARE TEST ORDERABLE S Final Result [facility] [address] * (ABNORMAL) POC O2 SAT (10/17/2025 7:26 PM EST) POC O2 Saturation, Arterial 99(H) 95 - 98 % 10/17/2025 7:30 PM EST [facility] Blood, Arterial 10/17/2025 7 :26 PM EST 10/17/2025 7:30 PM EST Vani Winkler MD POINT OF CARE TEST ORDERABLE S Final Result [facility] [address] [facility]. [address] * POC Base Excess (10/17/2025 7:26 PM EST) POC Base Excess, Arterial -2 -2 - 3 mmol/L 10/17/2025 7:30 PM EST [facility] Blood, Arterial 10/17/2025 7 :26 PM EST 10/17/2025 7:30 PM EST Vani Winkler MD POINT OF CARE TEST ORDERABLE S Final Result [facility] [address] [facility]. [address] * POC HCO3 (10/17/2025 7:26 PM EST) POC HCO3, Arterial 23 22 - 26 mmol/L 10/17/2025 7:30 PM EST [facility] Blood, Arterial 10/17/2025 7 :26 PM EST 10/17/2025 7:30 PM EST Vani Winkler MD POINT OF CARE TEST ORDERABLE S Final Result [facility] [address] [facility]. [address] * (ABNORMAL) POC PO2 (10/17/2025 7:26 PM EST) POC pO2, Arterial 156(H) 80 - 100 mm Hg 10/17/2025 7:30 PM EST [facility] Blood, Arterial 10/17/2025 7 :26 PM EST 10/17/2025 7:30 PM EST Vani Winkler MD POINT OF CARE TEST ORDERABLE S Final Result [facility] [address] * POC PCO2 (10/17/2025 7:26 PM EST) POC pCO2, Arterial 40 35 - 45 mm Hg 10/17/2025 7:30 PM EST [facility] Blood, Arterial 10/17/2025 7 :26 PM EST 10/17/2025 7:30 PM EST Vani Winkler MD POINT OF CARE TEST ORDERABLE S Final Result Performing Organization Address [facility] Co de Phone Number [facility] [address] * POC pH (10/17/2025 7:26 PM EST) POC pH, Arterial 7.37 7.35 - 7.45 10/17/2025 7:30 PM EST [facility] Blood, Arterial 10/17/2025 7 :26 PM EST 10/17/2025 7:30 PM EST Vani Winkler MD POINT OF CARE TEST ORDERABLE S Final Result Performing Organization Address City/[facility] Co de Phone Number [facility] [address] [facility]. [address] * (ABNORMAL) POC INR (10/17/2025 7:25 PM EST) Prothrombin Time INR, POC 5.9(HH) 0.8 - 1.4 10/18/2025 12:07 AM EST [facility] Comment: Test results may [...] TEST ORDERABLE S Final Result [facility] [address] [place] [address], [facility] * Transfuse Platelets (10/17/2025 7:03 PM EST) Slade Munoz MD NURSING TREATMENT ORDERABLES - B LOOD ADMIN Final Result * (ABNORMAL) TEG-Bypass/ECMO/Liver HN (Factor function, Platelet/Fibrin Clot Strength w/Clot Breakdown, Heparinase In All Channels) (10/17/2025 6:39 PM EST) Citrated Kaolin Reaction Time (TEGECMOLIVER) 7.1 4.6 - 9.1 minutes 10/17/2025 8:07 PM EST [facility] Citrated Kaolin W/Heparinase Reaction Time (TEGECMOLIVER) 2.5(L) 4.3 - 8.3 minutes 10/17/2025 8:07 PM EST [facility] Citrated Kaolin Maximum Amplitude (TEGECMOLIVER) 41.6(L) 52.0 - 69.0 mm 10/17/2025 8:07 PM EST [facility] Citrated Functional Fibrinogen W/Heparinase Maximum Amplitude(TEGEC MOLIVER) 20.9 15.0 - 34.0 mm 10/17/2025 8:07 PM EST [facility] Citrated Rapid Teg W/Heparinase Maximum Amplitude (TEGECMOLIVER) 30.9(L) 53.0 - 69.0 mm 10/17/2025 8:07 PM EST [facility] Citrated Kaolin w/Heparinase Percent Lysis (TEGECMOLIVER) 0.0 0.0 - 3.2 % 10/17/2025 8:07 PM EST [facility] Whole Blood (Citrate) 10/17/2025 6:39 PM EST 10/17/2025 6:45 PM EST Shannan Salas MD LAB BLOOD ORDERABLES Final R esult [facility] [address] * (ABNORMAL) CBC (10/17/2025 6:39 PM EST) WBC 4.8 3.8 - 10.8 10E3/uL 10/17/2025 6:54 PM EST [facility] RBC 3.19(L) 4.20 - 5.80 10E6/uL 10/17/2025 6:54 PM EST [facility] Hemoglobin 10.3(L) 13.2 - 17.1 g/dL 10/17/2025 6:54 PM EST [facility] Hematocrit 30.2(L) 38.5 - 50.0 % 10/17/2025 6:54 PM EST [facility] MCV 94.8 80.0 - 100.0 fL 10/17/2025 6:54 PM EST [facility] MCH 32.3 27.0 - 33.0 pg 10/17/2025 6:54 PM EST [facility] MCHC 34.1 32.0 - 36.0 g/dL 10/17/2025 6:54 PM EST [facility] RDW 17.8(H) 11.0 - 15.0 % 10/17/2025 6:54 PM EST [facility] Platelets 47(L) 140 - 400 10E3/uL 10/17/2025 6:54 PM EST [facility] Comment:CNV MPV 7.7 7.5 - 11.5 fL 10/17/2025 6:54 PM EST [facility] Whole Blood 10/17/2025 6:39 PM EST 10/17/2025 6:45 PM EST Shannan Salas MD LAB BLOOD ORDERABLES Final R esult [facility] [address] * (ABNORMAL) Protime-INR (10/17/2025 6:39 PM EST) [facility] Protime 69.5(HH) 12.1 - 15.1 seconds 10/17/2025 7:30 PM EST [facility] Comment:The critical result was called to, and read back by, licensed caregiver ROSALIND HAWK, SILVIO, AT 1930 INR 7.5(HH) 0.9 - 1.1 10/17/2025 7:30 PM EST [facility] Comment: RECOMMENDED THERAPEUTIC RANGES USING INR : Stable oral anticoagulant therapy: 2.0 - 3.0 Mechanical prosthetic heart valve: 2.5 - 3.5 Recurrent acute myocardial infarction: 2.5 - 3.5 The critical result was called to, and read back by, licensed caregiver ROSALIND HAWK RN, AT 1930 Plasma 10/17/2025 6:39 PM EST 10/17/2025 6:45 PM EST Result [facility] Shannan Salas MD LAB BLOOD ORDERABLES Final R esult [facility] [address] * (ABNORMAL) Fibrinogen (10/17/2025 6:39 PM EST) [facility] Fibrinogen 159(L) 218 - 406 mg/dL 10/17/2025 7:04 PM EST [facility] Plasma 10/17/2025 6:39 PM EST 10/17/2025 6:45 PM EST Result [facility] Shannan Salas MD LAB BLOOD ORDERABLES Final R esult [facility] [address] * Transfuse Cryoprecipitate (10/17/2025 6:31 PM EST) Slade Munoz MD NURSING TREATMENT ORDERABLES - B LOOD ADMIN Final Result * POC Sample Type (10/17/2025 6:23 PM EST) POC Sample Type Arterial 10/17/2025 6:25 PM EST [facility] Blood, Arterial 10/17/2025 6 :23 PM EST 10/17/2025 6:25 PM EST Vani Winkler MD POINT OF CARE TEST ORDERABLE S Final Result Performing Organization Address City/[facility]/ZIP Co de Phone Number [facility] [address] [facility]. [address] * POC Anion Gap (10/17/2025 6:23 PM EST) POC Anion Gap, Arterial 13 3 - 16 mmol/L 10/17/2025 6:25 PM EST [facility] Blood, Arterial 10/17/2025 6 :23 PM EST 10/17/2025 6:25 PM EST Vani Winkler MD POINT OF CARE TEST ORDERABLE S Final Result Performing Organization Address City/[facility]/ZIP Co de Phone Number [facility] [address] * POC Chloride (10/17/2025 6:23 PM EST) POC Chloride 110 98 - 110 mmol/L 10/17/2025 6:25 PM EST [facility] Blood, Arterial 10/17/2025 6 :23 PM EST 10/17/2025 6:25 PM EST Vani Winkler MD POINT OF CARE TEST ORDERABLE S Final Result Performing Organization Address City/[facility] Co de Phone Number [facility] [address] [facility]. [address] * (ABNORMAL) POC Hemoglobin (10/17/2025 6:23 PM EST) POC Hemoglobin 9.8(L) 14.0 - 18.0 g/dL 10/17/2025 6:25 PM EST [facility] Blood, Arterial 10/17/2025 6 :23 PM EST 10/17/2025 6:25 PM EST Vani Winkler MD POINT OF CARE TEST ORDERABLE S Final Result Performing Organization Address [facility] Co de Phone Number [facility] [address] * (ABNORMAL) POC hematocrit (10/17/2025 6:23 PM EST) POC Hematocrit 29.0(L) 40 - 52 % 10/17/2025 6:25 PM EST [facility] Blood, Arterial 10/17/2025 6 :23 PM EST 10/17/2025 6:25 PM EST Vani Winkler MD POINT OF CARE TEST ORDERABLE S Final Result Performing Organization Address [facility] Co de Phone Number [facility] [address] [facility]. [address] * (ABNORMAL) POC Lactate (10/17/2025 6:23 PM EST) POC Lactate 3.26(H) 0.50 - 2.20 mmol/L 10/17/2025 6:25 PM EST [facility] Blood, Arterial 10/17/2025 6 :23 PM EST 10/17/2025 6:25 PM EST Vani Winkler MD POINT OF CARE TEST ORDERABLE S Final Result Performing Organization Address City/[facility] Co de Phone Number [facility] [address] [facility]. [address] * (ABNORMAL) POC Glucose (10/17/2025 6:23 PM EST) POC Glucose, Arterial 170(H) 70 - 100 mg/dL 10/17/2025 6:25 PM EST [facility] Blood, Arterial 10/17/2025 6 :23 PM EST 10/17/2025 6:25 PM EST Vani Winkler MD POINT OF CARE TEST ORDERABLE S Final Result [facility] [address] [facility]. [address] * (ABNORMAL) POC Ionized Calcium (10/17/2025 6:23 PM EST) POC Ionized Calcium 6.00(H) 4.50 - 5.30 mg/dL 10/17/2025 6:25 PM EST [facility] Blood, Arterial 10/17/2025 6 :23 PM EST 10/17/2025 6:25 PM EST us Vani Winkler MD POINT OF CARE TEST ORDERABLE S Final Result Performing Organization Address City/[facility]/ZIP Co de Phone Number [facility] [address] [facility]. [address] * POC Potassium (10/17/2025 6:23 PM EST) POC Potassium 3.8 3.5 - 5.3 mmol/L 10/17/2025 6:25 PM EST [facility] Blood, Arterial 10/17/2025 6 :23 PM EST 10/17/2025 6:25 PM EST Vani Winkler MD POINT OF CARE TEST ORDERABLE S Final Result [facility] [address] [facility]. [address] * POC Sodium (10/17/2025 6:23 PM EST) POC Sodium 142 136 - 146 mmol/L 10/17/2025 6:25 PM EST [facility] Blood, Arterial 10/17/2025 6 :23 PM EST 10/17/2025 6:25 PM EST Vani Winkler MD POINT OF CARE TEST ORDERABLE S Final Result [facility] [address] * (ABNORMAL) POC TCO2 (10/17/2025 6:23 PM EST) POC TCO2, Arterial 20(L) 23 - 27 mmol/L 10/17/2025 6:25 PM EST [facility] Blood, Arterial 10/17/2025 6 :23 PM EST 10/17/2025 6:25 PM EST Vani Winkler MD POINT OF CARE TEST ORDERABLE S Final Result [facility] [address] * POC O2 SAT (10/17/2025 6:23 PM EST) POC O2 Saturation, Arterial 95 95 - 98 % 10/17/2025 6:25 PM EST [facility] Blood, Arterial 10/17/2025 6 :23 PM EST 10/17/2025 6:25 PM EST Vani Winkler MD POINT OF CARE TEST ORDERABLE S Final Result Performing Organization Address [facility]/State/ZIP Co de Phone Number [facility] [address] * (ABNORMAL) POC Base Excess (10/17/2025 6:23 PM EST) POC Base Excess, Arterial -6(L) -2 - 3 mmol/L 10/17/2025 6:25 PM EST [facility] Blood, Arterial 10/17/2025 6 :23 PM EST 10/17/2025 6:25 PM EST Vani Winkler MD POINT OF CARE TEST ORDERABLE S Final Result [facility] [address] * (ABNORMAL) POC HCO3 (10/17/2025 6:23 PM EST) POC HCO3, Arterial 19(L) 22 - 26 mmol/L 10/17/2025 6:25 PM EST [facility] Blood, Arterial 10/17/2025 6 :23 PM EST 10/17/2025 6:25 PM EST Vani Winkler MD POINT OF CARE TEST ORDERABLE S Final Result [facility] [address] [facility] * POC PO2 (10/17/2025 6:23 PM EST) POC pO2, Arterial 80 80 - 100 mm Hg 10/17/2025 6:25 PM EST [facility] Blood, Arterial 10/17/2025 6 :23 PM EST 10/17/2025 6:25 PM EST Vani Winkler MD POINT OF CARE TEST ORDERABLE S Final Result Performing Organization Address City/[facility]/ZIP Co de Phone Number [facility] [address] [facility] * POC PCO2 (10/17/2025 6:23 PM EST) POC pCO2, Arterial 36 35 - 45 mm Hg 10/17/2025 6:25 PM EST [facility] Blood, Arterial 10/17/2025 6 :23 PM EST 10/17/2025 6:25 PM EST Vani Winkler MD POINT OF CARE TEST ORDERABLE S Final Result [facility] [address] [facility] * (ABNORMAL) POC pH (10/17/2025 6:23 PM EST) POC pH, Arterial 7.33(L) 7.35 - 7.45 10/17/2025 6:25 PM EST [facility] Blood, Arterial 10/17/2025 6 :23 PM EST 10/17/2025 6:25 PM EST Result [facility] Vain Winkler MD POINT OF CARE TEST ORDERABLE S Final Result Performing Organization Address City/[facility]/ZIP Co de Phone Number [facility] [address] [facility] * (ABNORMAL) POC INR (10/17/2025 6:21 PM EST) Prothrombin Time INR, POC 6.4(HH) 0.8 - 1.4 10/18/2025 12:07 AM EST [facility] Comment: Test results may vary using different testing platforms. Serial result monitoring should be performed using the same methodology. RECOMMENDED THERAPEUTIC RANGES USING INR : Stable oral anticoagulant therapy: 2.0 - 3.0 Mechanical prosthetic heart valve: 2.5 - 3.5 Recurrent acute myocardial infarction: 2.5 - 3.5 Blood 10/17/2025 6:21 PM EST 10/18/2025 12:07 AM EST Result [facility] Vani Winkler MD POINT OF CARE TEST ORDERABLE S Final Result Performing Organization Address City/[facility]/ZIP Co de Phone Number [facility] [address] [facility] * Transfuse Cryoprecipitate (10/17/2025 6:18 PM EST) Result [facility] Slade Munoz MD NURSING TREATMENT ORDERABLES - B LOOD ADMIN Final Result * POC Sample Type (10/17/2025 5:42 PM EST) POC Sample Type Arterial 10/17/2025 6:21 PM EST [facility] Blood, Arterial 10/17/2025 5 :42 PM EST 10/17/2025 6:21 PM EST Result [facility] Vani Winkler MD POINT OF CARE TEST ORDERABLE S Final Result [facility] [address] * POC Anion Gap (10/17/2025 5:42 PM EST) POC Anion Gap, Arterial 10 3 - 16 mmol/L 10/17/2025 6:21 PM EST [facility] Blood, Arterial 10/17/2025 5 :42 PM EST 10/17/2025 6:21 PM EST Vani Winkler MD POINT OF CARE TEST ORDERABLE S Final Result [facility] [address] * (ABNORMAL) POC Chloride (10/17/2025 5:42 PM EST) POC Chloride 111(H) 98 - 110 mmol/L 10/17/2025 6:21 PM EST [facility] Blood, Arterial 10/17/2025 5 :42 PM EST 10/17/2025 6:21 PM EST Vani Winkler MD POINT OF CARE TEST ORDERABLE S Final Result Performing Organization Address City/[facility]/ZIP Co de Phone Number [facility] [address] [facility]. [address] * (ABNORMAL) POC Hemoglobin (10/17/2025 5:42 PM EST) POC Hemoglobin 7.9(L) 14.0 - 18.0 g/dL 10/17/2025 6:21 PM EST [facility] Blood, Arterial 10/17/2025 5 :42 PM EST 10/17/2025 6:21 PM EST Vani Winkler MD POINT OF CARE TEST ORDERABLE S Final Result [facility] [address] * (ABNORMAL) POC hematocrit (10/17/2025 5:42 PM EST) POC Hematocrit 23.0(L) 40 - 52 % 10/17/2025 6:21 PM EST [facility] Blood, Arterial 10/17/2025 5 :42 PM EST 10/17/2025 6:21 PM EST Vani Winkler MD POINT OF CARE TEST ORDERABLE S Final Result [facility] [address] [facility] * (ABNORMAL) POC Lactate (10/17/2025 5:42 PM EST) POC Lactate 2.53(H) 0.50 - 2.20 mmol/L 10/17/2025 6:21 PM EST [facility] Blood, Arterial 10/17/2025 5 :42 PM EST 10/17/2025 6:21 PM EST Vani Winkler MD POINT OF CARE TEST ORDERABLE S Final Result Performing Organization Address City/[facility]/ZIP Co de Phone Number [facility] [address] [facility] * POC Glucose (10/17/2025 5:42 PM EST) POC Glucose, Arterial 77 70 - 100 mg/dL 10/17/2025 6:21 PM EST [facility] Blood, Arterial 10/17/2025 5 :42 PM EST 10/17/2025 6:21 PM EST Vani Winkler MD POINT OF CARE TEST ORDERABLE S Final Result [facility] [address] [facility] * (ABNORMAL) POC Ionized Calcium (10/17/2025 5:42 PM EST) POC Ionized Calcium 5.90(H) 4.50 - 5.30 mg/dL 10/17/2025 6:21 PM EST [facility] Blood, Arterial 10/17/2025 5 :42 PM EST 10/17/2025 6:21 PM EST Vani Winkler MD POINT OF CARE TEST ORDERABLE S Final Result [facility] [address] [place] [address]. [address] * POC Potassium (10/17/2025 5:42 PM EST) [facility] POC Potassium 3.7 3.5 - 5.3 mmol/L 10/17/2025 6:21 PM EST [facility] Blood, Arterial 10/17/2025 5 :42 PM EST 10/17/2025 6:21 PM EST Vani Winkler MD POINT OF CARE TEST ORDERABLE S Final Result Performing Organization Address [facility] Co de Phone Number [facility] [address] [place] [address]. [address] * POC Sodium (10/17/2025 5:42 PM EST) [facility] POC Sodium 141 136 - 146 mmol/L 10/17/2025 6:21 PM EST [facility] Blood, Arterial 10/17/2025 5 :42 PM EST 10/17/2025 6:21 PM EST Vani Winkler MD POINT OF CARE TEST ORDERABLE S Final Result Performing Organization Address City/[facility] Co de Phone Number [facility] [address] [place] [address]. [address] * (ABNORMAL) POC TCO2 (10/17/2025 5:42 PM EST) Pathologist [facility] POC TCO2, Arterial 21(L) 23 - 27 mmol/L 10/17/2025 6:21 PM EST [facility] Blood, Arterial 10/17/2025 5 :42 PM EST 10/17/2025 6:21 PM EST Vani Winkler MD POINT OF CARE TEST ORDERABLE S Final Result [facility] [address] * (ABNORMAL) POC O2 SAT (10/17/2025 5:42 PM EST) POC O2 Saturation, Arterial 99(H) 95 - 98 % 10/17/2025 6:21 PM EST [facility] Blood, Arterial 10/17/2025 5 :42 PM EST 10/17/2025 6:21 PM EST Vani Winkler MD POINT OF CARE TEST ORDERABLE S Final Result Performing Organization Address City/[facility]/ZIP Co de Phone Number [facility] [address] [facility]. [address] * (ABNORMAL) POC Base Excess (10/17/2025 5:42 PM EST) POC Base Excess, Arterial -4(L) -2 - 3 mmol/L 10/17/2025 6:21 PM EST [facility] Blood, Arterial 10/17/2025 5 :42 PM EST 10/17/2025 6:21 PM EST Vani Winkler MD POINT OF CARE TEST ORDERABLE S Final Result [facility] [address] [facility]. [address] * (ABNORMAL) POC HCO3 (10/17/2025 5:42 PM EST) POC HCO3, Arterial 20(L) 22 - 26 mmol/L 10/17/2025 6:21 PM EST [facility] Blood, Arterial 10/17/2025 5 :42 PM EST 10/17/2025 6:21 PM EST Vani Winkler MD POINT OF CARE TEST ORDERABLE S Final Result [facility] [address] [facility] * (ABNORMAL) POC PO2 (10/17/2025 5:42 PM EST) POC pO2, Arterial 159(H) 80 - 100 mm Hg 10/17/2025 6:21 PM EST [facility] Blood, Arterial 10/17/2025 5 :42 PM EST 10/17/2025 6:21 PM EST Vani Winkler MD POINT OF CARE TEST ORDERABLE S Final Result Performing Organization Address [facility] Co de Phone Number [facility] [address] [place] [address]. [address] * (ABNORMAL) POC PCO2 (10/17/2025 5:42 PM EST) POC pCO2, Arterial 33(L) 35 - 45 mm Hg 10/17/2025 6:21 PM EST [facility] Blood, Arterial 10/17/2025 5 :42 PM EST 10/17/2025 6:21 PM EST Vani Winkler MD POINT OF CARE TEST ORDERABLE S Final Result [facility] [address] [facility] * POC pH (10/17/2025 5:42 PM EST) POC pH, Arterial 7.40 7.35 - 7.45 10/17/2025 6:21 PM EST [facility] Blood, Arterial 10/17/2025 5 :42 PM EST 10/17/2025 6:21 PM EST us Vani Winkler MD POINT OF CARE TEST ORDERABLE S Final Result [facility] [address] [facility]. [address] * (ABNORMAL) POC INR (10/17/2025 5:37 PM EST) Prothrombin Time INR, POC 3.6(H) 0.8 - 1.4 10/18/2025 12:07 AM EST [facility] Comment: Test results may [...] TEST ORDERABLE S Final Result [facility] [address] [facility]. [address] * Transfuse RBC (10/17/2025 5:34 PM EST) Result [facility] Slade Munoz MD NURSING TREATMENT ORDERABLES - B LOOD ADMIN Final Result * Transfuse RBC (10/17/2025 5:34 PM EST) Result [facility] Slade Munoz MD NURSING TREATMENT ORDERABLES - B LOOD ADMIN Final Result * Surgical Pathology Exam (10/17/2025 5:20 PM EST) Tissue LIVER STRUCTURE / Unknown 10/17/2025 5:20 PM EST Narrative [facility] - 10/17/2025 12:00 AM EST CASE: [id number] PATIENT: DAVID SERRANO Clinical History: transplant liver Pre-Operative Diagnosis: end stage liver disease Post-Operative Diagnosis: same Specimen(s) Submitted: A. [place] liver and gallbladder; B. Right lobe post perfusion liver bx; C. Left lobe post perfusion liver bx CPT Code(s): 99674 X 2; 10013 X 1; 58311 X 7 Additional Information: FINAL DIAGNOSIS: Liver and gall bladder, [place], total hepatectomy with cholecystectomy: Liver: -Cirrhosis, mild [...] with the patient's name David Serrano and [place] liver and gallbladder is a 782 gram, [...] no discrete masses or lesions are identified. Licensed Psychiatric Technician sections are submitted in cassettes [id number] as follows: A1: Licensed Psychiatric Technician gallbladder. A2: Hilar margins, en face. A3-A5: Licensed Psychiatric Technician right lobe. A6-A8: Licensed Psychiatric Technician left lobe with liver written on the side of the cassette in A8. (LAISHA Miranda/vc) B. Received in formalin, labeled with the patient's name David Serrano and right lobe post perfusion liver biopsy is a 1.6 cm in length x 0.1 cm in diameter red-brown tissue core, which is entirely submitted between blue biopsy sponges in cassette [id number]. (LAISHA Miranda/vc) C. Received in formalin, labeled with the patient's name David Serrano and left lobe post perfusion liver biopsy is a 1.3 cm in length x 0.1 cm in diameter red-brown fragmented tissue core, which is entirely submitted between blue biopsy sponges in cassette [id number]. (LAISHA Miranda/) Microscopic Description: Sixteen HE [...] Materials Reacted Appropriately. Final Diagnosis performed by ABLERTO PEREZ MD Pathologist Electronically signed 10/22/2025 07:05:07 PM The Pathologist signing this report is located at [facility], [address] [place] [address], [facility], [facility] [phone], CLIA ID: [id number] us Leticia Lomeli MD PATHOLOGY/CYTOLOGY ORDERABLES Final Result [facility] * Transfuse RBC (10/17/2025 5:19 PM EST) us Slade Munoz MD NURSING TREATMENT ORDERABLES - B LOOD ADMIN Final Result * POC Sample Type (10/17/2025 5:00 PM EST) POC Sample Type Arterial 10/17/2025 5:03 PM EST [facility] Blood, Arterial 10/17/2025 5 :00 PM EST 10/17/2025 5:03 PM EST Vani Winkler MD POINT OF CARE TEST ORDERABLE S Final Result [facility] [address] [facility] * POC Anion Gap (10/17/2025 5:00 PM EST) POC Anion Gap, Arterial 11 3 - 16 mmol/L 10/17/2025 5:03 PM EST [facility] Blood, Arterial 10/17/2025 5 :00 PM EST 10/17/2025 5:03 PM EST us Vani Winkler MD POINT OF CARE TEST ORDERABLE S Final Result Performing Organization Address [facility] Co de Phone Number [facility] [address] [facility] * POC Chloride (10/17/2025 5:00 PM EST) POC Chloride 109 98 - 110 mmol/L 10/17/2025 5:03 PM EST [facility] Blood, Arterial 10/17/2025 5 :00 PM EST 10/17/2025 5:03 PM EST us Vani Winkler MD POINT OF CARE TEST ORDERABLE S Final Result Performing Organization Address City/[facility] Co de Phone Number [facility] [address] [facility] * (ABNORMAL) POC Hemoglobin (10/17/2025 5:00 PM EST) POC Hemoglobin 7.9(L) 14.0 - 18.0 g/dL 10/17/2025 5:03 PM EST [facility] Blood, Arterial 10/17/2025 5 :00 PM EST 10/17/2025 5:03 PM EST Vani Winkler MD POINT OF CARE TEST ORDERABLE S Final Result [facility] [address] * (ABNORMAL) POC hematocrit (10/17/2025 5:00 PM EST) POC Hematocrit 23.0(L) 40 - 52 % 10/17/2025 5:03 PM EST [facility] Blood, Arterial 10/17/2025 5 :00 PM EST 10/17/2025 5:03 PM EST Vani Winkler MD POINT OF CARE TEST ORDERABLE S Final Result [facility] [address] [facility]. [address] * (ABNORMAL) POC Lactate (10/17/2025 5:00 PM EST) POC Lactate 2.68(H) 0.50 - 2.20 mmol/L 10/17/2025 5:03 PM EST [facility] Blood, Arterial 10/17/2025 5 :00 PM EST 10/17/2025 5:03 PM EST Vani Winkler MD POINT OF CARE TEST ORDERABLE S Final Result [facility] [address] [facility] * POC Glucose (10/17/2025 5:00 PM EST) POC Glucose, Arterial 96 70 - 100 mg/dL 10/17/2025 5:03 PM EST [facility] Blood, Arterial 10/17/2025 5 :00 PM EST 10/17/2025 5:03 PM EST Vani Winkler MD POINT OF CARE TEST ORDERABLE S Final Result [facility] [address] [facility] * POC Ionized Calcium (10/17/2025 5:00 PM EST) POC Ionized Calcium 4.60 4.50 - 5.30 mg/dL 10/17/2025 5:03 PM EST [facility] Blood, Arterial 10/17/2025 5 :00 PM EST 10/17/2025 5:03 PM EST Vani Winkler MD POINT OF CARE TEST ORDERABLE S Final Result [facility] [address] [place] [address]. [address] * POC Potassium (10/17/2025 5:00 PM EST) Pathologist [facility] POC Potassium 3.7 3.5 - 5.3 mmol/L 10/17/2025 5:03 PM EST [facility] Blood, Arterial 10/17/2025 5 :00 PM EST 10/17/2025 5:03 PM EST Vani Winkler MD POINT OF CARE TEST ORDERABLE S Final Result Performing Organization Address City/[facility]/ZIP Co de Phone Number [facility] [address] [place] [address]. [address] * POC Sodium (10/17/2025 5:00 PM EST) Pathologist [facility] POC Sodium 143 136 - 146 mmol/L 10/17/2025 5:03 PM EST [facility] Blood, Arterial 10/17/2025 5 :00 PM EST 10/17/2025 5:03 PM EST Vani Winkler MD POINT OF CARE TEST ORDERABLE S Final Result Performing Organization Address City/[facility] Co de Phone Number [facility] [address] [place] [address]. [address] * POC TCO2 (10/17/2025 5:00 PM EST) POC TCO2, Arterial 24 23 - 27 mmol/L 10/17/2025 5:03 PM EST [facility] Blood, Arterial 10/17/2025 5 :00 PM EST 10/17/2025 5:03 PM EST Vani Winkler MD POINT OF CARE TEST ORDERABLE S Final Result [facility] [address] [facility] * (ABNORMAL) POC O2 SAT (10/17/2025 5:00 PM EST) POC O2 Saturation, Arterial 100(H) 95 - 98 % 10/17/2025 5:03 PM EST [facility] Blood, Arterial 10/17/2025 5 :00 PM EST 10/17/2025 5:03 PM EST Vani Winkler MD POINT OF CARE TEST ORDERABLE S Final Result [facility] [address] [facility]. [address] * POC Base Excess (10/17/2025 5:00 PM EST) POC Base Excess, Arterial -2 -2 - 3 mmol/L 10/17/2025 5:03 PM EST [facility] Blood, Arterial 10/17/2025 5 :00 PM EST 10/17/2025 5:03 PM EST Vani Winkler MD POINT OF CARE TEST ORDERABLE S Final Result [facility] [address] * POC HCO3 (10/17/2025 5:00 PM EST) POC HCO3, Arterial 23 22 - 26 mmol/L 10/17/2025 5:03 PM EST [facility] Blood, Arterial 10/17/2025 5 :00 PM EST 10/17/2025 5:03 PM EST us Vani Winkler MD POINT OF CARE TEST ORDERABLE S Final Result [facility] [address] [place] [address]. [address] * (ABNORMAL) POC PO2 (10/17/2025 5:00 PM EST) POC pO2, Arterial 200(H) 80 - 100 mm Hg 10/17/2025 5:03 PM EST [facility] Blood, Arterial 10/17/2025 5 :00 PM EST 10/17/2025 5:03 PM EST us Vani Winkler MD POINT OF CARE TEST ORDERABLE S Final Result Performing Organization Address [facility] Co de Phone Number [facility] [address] [place] [address]. [address] * POC PCO2 (10/17/2025 5:00 PM EST) POC pCO2, Arterial 38 35 - 45 mm Hg 10/17/2025 5:03 PM EST [facility] Blood, Arterial 10/17/2025 5 :00 PM EST 10/17/2025 5:03 PM EST us Vani Winkler MD POINT OF CARE TEST ORDERABLE S Final Result [facility] [address] [place] [address]. [address] * POC pH (10/17/2025 5:00 PM EST) POC pH, Arterial 7.39 7.35 - 7.45 10/17/2025 5:03 PM EST [facility] Blood, Arterial 10/17/2025 5 :00 PM EST 10/17/2025 5:03 PM EST Vani Winkler MD POINT OF CARE TEST ORDERABLE S Final Result Performing Organization Address City/[facility]/ZIP Co de Phone Number [facility] [address] * (ABNORMAL) POC INR (10/17/2025 4:59 PM EST) Prothrombin Time INR, POC 1.7(H) 0.8 - 1.4 10/18/2025 12:07 AM EST [facility] Comment: Test results may [...] ORDERABLE S Final Result Performing Organization Address [facility] Co de Phone Number [facility] [address] * (ABNORMAL) TEG-Bypass/ECMO/Liver HN (Factor function, Platelet/Fibrin Clot Strength w/Clot Breakdown, Heparinase In All Channels) (10/17/2025 4:56 PM EST) Citrated Kaolin Reaction Time (TEGECMOLIVER) 4.7 4.6 - 9.1 minutes 10/17/2025 6:20 PM EST [facility] Citrated Kaolin W/Heparinase Reaction Time (TEGECMOLIVER) 4.7 4.3 - 8.3 minutes 10/17/2025 6:20 PM EST [facility] Citrated Kaolin Maximum Amplitude (TEGECMOLIVER) 42.4(L) 52.0 - 69.0 mm 10/17/2025 6:20 PM EST [facility] Citrated Functional Fibrinogen W/Heparinase Maximum Amplitude(TEGEC MOLIVER) 6.6(L) 15.0 - 34.0 mm 10/17/2025 6:20 PM EST [facility] Citrated Rapid Teg W/Heparinase Maximum Amplitude (TEGECMOLIVER) 39.8(L) 53.0 - 69.0 mm 10/17/2025 6:20 PM EST [facility] Citrated Kaolin w/Heparinase Percent Lysis (TEGECMOLIVER) 0.0 0.0 - 3.2 % 10/17/2025 6:20 PM EST [facility] Whole Blood (Citrate) 10/17/2025 4:56 PM EST 10/17/2025 5:06 PM EST Slade Munoz MD LAB BLOOD ORDERABLES Final Resul t Performing Organization Address City/[facility] Co de Phone Number [facility] [address] [facility]. [address] * (ABNORMAL) Protime-INR (10/17/2025 4:56 PM EST) Protime 26.4(H) 12.1 - 15.1 seconds 10/17/2025 5:31 PM EST [facility] INR 2.3(H) 0.9 - 1.1 10/17/2025 5:31 PM EST [facility] Comment: RECOMMENDED THERAPEUTIC RANGES USING INR : Stable oral anticoagulant therapy: 2.0 - 3.0 Mechanical prosthetic heart valve: 2.5 - 3.5 Recurrent acute myocardial infarction: 2.5 - 3.5 Plasma 10/17/2025 4:56 PM EST 10/17/2025 5:06 PM EST Slade Munoz MD LAB BLOOD ORDERABLES Final Resul t [facility] [address] * (ABNORMAL) Fibrinogen (10/17/2025 4:56 PM EST) Fibrinogen 137(L) 218 - 406 mg/dL 10/17/2025 5:36 PM EST [facility] Plasma 10/17/2025 4:56 PM EST 10/17/2025 5:06 PM EST Slade Munoz MD LAB BLOOD ORDERABLES Final Resul t [facility] [address] * (ABNORMAL) CBC (10/17/2025 4:56 PM EST) WBC 3.9 3.8 - 10.8 10E3/uL 10/17/2025 8:25 PM EST [facility] RBC 2.67(L) 4.20 - 5.80 10E6/uL 10/17/2025 8:25 PM EST [facility] Hemoglobin 9.2(L) 13.2 - 17.1 g/dL 10/17/2025 8:25 PM EST [facility] Hematocrit 26.1(L) 38.5 - 50.0 % 10/17/2025 8:25 PM EST [facility] MCV 98.0 80.0 - 100.0 fL 10/17/2025 8:25 PM EST [facility] MCH 34.5(H) 27.0 - 33.0 pg 10/17/2025 8:25 PM EST [facility] MCHC 35.3 32.0 - 36.0 g/dL 10/17/2025 8:25 PM EST [facility] RDW 17.9(H) 11.0 - 15.0 % 10/17/2025 8:25 PM EST [facility] Platelets 64(L) 140 - 400 10E3/uL 10/17/2025 8:25 PM EST [facility] MPV 8.2 7.5 - 11.5 fL 10/17/2025 8:25 PM EST [facility] Whole Blood 10/17/2025 4:56 PM EST 10/17/2025 5:19 PM EST Slade Munoz MD LAB BLOOD ORDERABLES Final Resul t [facility] [address] * (ABNORMAL) APTT, No Anticoagulant (10/17/2025 4:56 PM EST) aPTT 55.7(H) 25.5 - 35.0 seconds 10/17/2025 5:32 PM EST [facility] Plasma 10/17/2025 4:56 PM EST 10/17/2025 5:06 PM EST us Slade Munoz MD LAB BLOOD ORDERABLES Final Resul t Performing Organization Address City/[facility] Co de Phone Number [facility] [address] * Transfuse Cryoprecipitate (10/17/2025 4:18 PM EST) us Slade Munoz MD NURSING TREATMENT ORDERABLES - B LOOD ADMIN Final Result * Transfuse Cryoprecipitate Transfusion Rate: Per dept routine (10/17/2025 4:18 PM EST) us Slade Munoz MD NURSING TREATMENT ORDERABLES - B LOOD ADMIN Final Result Performing Organization Address City/[facility] Co de Phone Number EXTERNAL * Transfuse Cryoprecipitate Transfusion Rate: Per dept routine, 1 Units (10/17/2025 4:18 PM EST) us Slade Munoz MD NURSING TREATMENT ORDERABLES - B LOOD ADMIN Final Result Performing Organization Address City/[facility] Co de Phone Number EXTERNAL * Transfuse Platelets (10/17/2025 4:06 PM EST) us Slade Munoz MD NURSING TREATMENT ORDERABLES - B LOOD ADMIN Final Result * POC Sample Type (10/17/2025 3:59 PM EST) Pathologist [facility] POC Sample Type Arterial 10/17/2025 4:01 PM EST [facility] Blood, Arterial 10/17/2025 3 :59 PM EST 10/17/2025 4:01 PM EST Vani Winkler MD POINT OF CARE TEST ORDERABLE S Final Result Performing Organization Address City/[facility] Co de Phone Number [facility] [address] [facility] * POC Anion Gap (10/17/2025 3:59 PM EST) POC Anion Gap, Arterial 10 3 - 16 mmol/L 10/17/2025 4:01 PM EST [facility] Blood, Arterial 10/17/2025 3:59 PM EST 10/17/2025 4:01 PM EST Vani Winkler MD POINT OF CARE TEST ORDERABLE S Final Result [facility] [address] [facility] * (ABNORMAL) POC Chloride (10/17/2025 3:59 PM EST) Pathologist [facility] POC Chloride 111(H) 98 - 110 mmol/L 10/17/2025 4:01 PM EST [facility] Blood, Arterial 10/17/2025 3 :59 PM EST 10/17/2025 4:01 PM EST Vani Winkler MD POINT OF CARE TEST ORDERABLE S Final Result Performing Organization Address [facility] Co de Phone Number [facility] [address] [facility] * (ABNORMAL) POC Hemoglobin (10/17/2025 3:59 PM EST) Pathologist [facility] POC Hemoglobin 9.7(L) 14.0 - 18.0 g/dL 10/17/2025 4:01 PM EST [facility] Blood, Arterial 10/17/2025 3 :59 PM EST 10/17/2025 4:01 PM EST Vani Winkler MD POINT OF CARE TEST ORDERABLE S Final Result Performing Organization Address City/[facility] Co de Phone Number [facility] [address] [facility] * (ABNORMAL) POC hematocrit (10/17/2025 3:59 PM EST) Pathologist [facility] POC Hematocrit 29.0(L) 40 - 52 % 10/17/2025 4:01 PM EST [facility] Blood, Arterial 10/17/2025 3 :59 PM EST 10/17/2025 4:01 PM EST Vani Winkler MD POINT OF CARE TEST ORDERABLE S Final Result [facility] [address] [place] [address]. [address] * POC Lactate (10/17/2025 3:59 PM EST) POC Lactate 1.77 0.50 - 2.20 mmol/L 10/17/2025 4:01 PM EST [facility] Blood, Arterial 10/17/2025 3 :59 PM EST 10/17/2025 4:01 PM EST Vani Winkler MD POINT OF CARE TEST ORDERABLE S Final Result [facility] [address] * POC Glucose (10/17/2025 3:59 PM EST) Pathologist [facility] POC Glucose, Arterial 81 70 - 100 mg/dL 10/17/2025 4:01 PM EST [facility] Blood, Arterial 10/17/2025 3 :59 PM EST 10/17/2025 4:01 PM EST Vani Winkler MD POINT OF CARE TEST ORDERABLE S Final Result [facility] [address] [place], [place] [address]ue [facility]. [address] * POC Ionized Calcium (10/17/2025 3:59 PM EST) POC Ionized Calcium 4.90 4.50 - 5.30 mg/dL 10/17/2025 4:01 PM EST [facility] Blood, Arterial 10/17/2025 3 :59 PM EST 10/17/2025 4:01 PM EST Vani Winkler MD POINT OF CARE TEST ORDERABLE S Final Result [facility] [address] [facility] * POC Potassium (10/17/2025 3:59 PM EST) POC Potassium 3.7 3.5 - 5.3 mmol/L 10/17/2025 4:01 PM EST [facility] Blood, Arterial 10/17/2025 3 :59 PM EST 10/17/2025 4:01 PM EST us Vani Winkler MD POINT OF CARE TEST ORDERABLE S Final Result Performing Organization Address City/[facility]/ZIP Co de Phone Number [facility] [address] [facility] * POC Sodium (10/17/2025 3:59 PM EST) POC Sodium 145 136 - 146 mmol/L 10/17/2025 4:01 PM EST [facility] Blood, Arterial 10/17/2025 3 :59 PM EST 10/17/2025 4:01 PM EST Vani Winkler MD POINT OF CARE TEST ORDERABLE S Final Result [facility] [address] [facility] * POC TCO2 (10/17/2025 3:59 PM EST) POC TCO2, Arterial 26 23 - 27 mmol/L 10/17/2025 4:01 PM EST [facility] Blood, Arterial 10/17/2025 3 :59 PM EST 10/17/2025 4:01 PM EST Vani Winkler MD POINT OF CARE TEST ORDERABLE S Final Result [facility] [address] * (ABNORMAL) POC O2 SAT (10/17/2025 3:59 PM EST) POC O2 Saturation, Arterial 100(H) 95 - 98 % 10/17/2025 4:01 PM EST [facility] Blood, Arterial 10/17/2025 3 :59 PM EST 10/17/2025 4:01 PM EST us Vani Winkler MD POINT OF CARE TEST ORDERABLE S Final Result Performing Organization Address City/[facility]/ZIP Co de Phone Number [facility] [address] * POC Base Excess (10/17/2025 3:59 PM EST) POC Base Excess, Arterial -1 -2 - 3 mmol/L 10/17/2025 4:01 PM EST [facility] Blood, Arterial 10/17/2025 3 :59 PM EST 10/17/2025 4:01 PM EST Vani Winkler MD POINT OF CARE TEST ORDERABLE S Final Result Performing Organization Address City/[facility]/ZIP Co de Phone Number [facility] [address] * POC HCO3 (10/17/2025 3:59 PM EST) POC HCO3, Arterial 24 22 - 26 mmol/L 10/17/2025 4:01 PM EST [facility] Blood, Arterial 10/17/2025 3 :59 PM EST 10/17/2025 4:01 PM EST Vani Winkler MD POINT OF CARE TEST ORDERABLE S Final Result [facility] [address] * (ABNORMAL) POC PO2 (10/17/2025 3:59 PM EST) POC pO2, Arterial 213(H) 80 - 100 mm Hg 10/17/2025 4:01 PM EST [facility] Blood, Arterial 10/17/2025 3 :59 PM EST 10/17/2025 4:01 PM EST Vani Winkler MD POINT OF CARE TEST ORDERABLE S Final Result [facility] [address] [facility]. [address] * POC PCO2 (10/17/2025 3:59 PM EST) POC pCO2, Arterial 45 35 - 45 mm Hg 10/17/2025 4:01 PM EST [facility] Blood, Arterial 10/17/2025 3 :59 PM EST 10/17/2025 4:01 PM EST Vani Winkler MD POINT OF CARE TEST ORDERABLE S Final Result [facility] [address] [facility]. [address] * (ABNORMAL) POC pH (10/17/2025 3:59 PM EST) POC pH, Arterial 7.34(L) 7.35 - 7.45 10/17/2025 4:01 PM EST [facility] Blood, Arterial 10/17/2025 3 :59 PM EST 10/17/2025 4:01 PM EST Vani Winkler MD POINT OF CARE TEST ORDERABLE S Final Result [facility] [address] [facility]. [address] * (ABNORMAL) POC INR (10/17/2025 3:58 PM EST) Prothrombin Time INR, POC 2.8(H) 0.8 - 1.4 10/18/2025 12:07 AM EST [facility] Comment: Test results may [...] ORDERABLE S Final Result Performing Organization Address City/State/[facility] Co de Phone Number [facility] [address] * Transfuse RBC (10/17/2025 3:23 PM EST) [...] minutes 10/17/2025 4:23 PM EST [facility] Citrated Kaolin W/Heparinase Reaction Time (TEGECMOLIVER) 5.2 4.3 - 8.3 minutes 10/17/2025 4:23 PM EST [facility] Citrated Kaolin Maximum Amplitude (TEGECMOLIVER) <40.0(L) 52.0 - 69.0 mm 10/17/2025 4:23 PM EST [facility] Citrated Functional Fibrinogen W/Heparinase Maximum Amplitude(TEGEC MOLIVER) <6.0(L) 15.0 - 34.0 mm 10/17/2025 4:23 PM EST [facility] Citrated Rapid Teg W/Heparinase Maximum Amplitude (TEGECMOLIVER) 32.8(L) 53.0 - 69.0 mm 10/17/2025 4:23 PM EST [facility] Citrated Kaolin w/Heparinase Percent Lysis (TEGECMOLIVER) 0.0 0.0 - 3.2 % 10/17/2025 4:23 PM EST [facility] Whole Blood (Citrate) 10/17/2025 2:55 PM EST 10/17/2025 3:05 PM EST us Slade Munoz MD LAB BLOOD ORDERABLES Final Resul t [facility] [address] [facility]. [place] [id number], [facility] * (ABNORMAL) CBC (10/17/2025 2:55 PM EST) WBC 4.4 3.8 - 10.8 10E3/uL 10/17/2025 3:20 PM EST [facility] RBC 2.90(L) 4.20 - 5.80 10E6/uL 10/17/2025 3:20 PM EST [facility] Hemoglobin 10.0(L) 13.2 - 17.1 g/dL 10/17/2025 3:20 PM EST [facility] Hematocrit 28.6(L) 38.5 - 50.0 % 10/17/2025 3:20 PM EST [facility] MCV 98.7 80.0 - 100.0 fL 10/17/2025 3:20 PM EST [facility] MCH 34.4(H) 27.0 - 33.0 pg 10/17/2025 3:20 PM EST [facility] MCHC 34.8 32.0 - 36.0 g/dL 10/17/2025 3:20 PM EST [facility] RDW 17.0(H) 11.0 - 15.0 % 10/17/2025 3:20 PM EST [facility] Platelets 53(L) 140 - 400 10E3/uL 10/17/2025 3:20 PM EST [facility] MPV 7.6 7.5 - 11.5 fL 10/17/2025 3:20 PM EST [facility] Whole Blood 10/17/2025 2:55 PM EST 10/17/2025 3:06 PM EST us Slade Munoz MD LAB BLOOD ORDERABLES Final Resul t Performing Organization Address City/[facility]/ZIP Co de Phone Number [facility] [address] * (ABNORMAL) Fibrinogen (10/17/2025 2:55 PM EST) Fibrinogen 85(LL) 218 - 406 mg/dL 10/17/2025 3:46 PM EST [facility] Comment:The critical result was called to, and read back by, licensed caregiver CAMI GALEANO MD, AT 1545 Plasma 10/17/2025 2:55 PM EST 10/17/2025 3:06 PM EST us Slade Munoz MD LAB BLOOD ORDERABLES Final Resul t Performing Organization Address [facility] Co de Phone Number [facility] [address] * (ABNORMAL) Protime-INR (10/17/2025 2:55 PM EST) Protime 26.5(H) 12.1 - 15.1 seconds 10/17/2025 3:30 PM EST [facility] INR 2.3(H) 0.9 - 1.1 10/17/2025 3:30 PM EST [facility] Comment: RECOMMENDED THERAPEUTIC RANGES USING INR : Stable oral anticoagulant therapy: 2.0 - 3.0 Mechanical prosthetic heart valve: 2.5 - 3.5 Recurrent acute myocardial infarction: 2.5 - 3.5 Plasma 10/17/2025 2:55 PM EST 10/17/2025 3:06 PM EST us Slade Munoz MD LAB BLOOD ORDERABLES Final Resul t [facility] [address] * POC Sample Type (10/17/2025 2:54 PM EST) [facility] POC Sample Type Arterial 10/17/2025 3:55 PM EST [facility] Blood, Arterial 10/17/2025 2 :54 PM EST 10/17/2025 3:55 PM EST Vani Winkler MD POINT OF CARE TEST ORDERABLE S Final Result [facility] [address] * POC Anion Gap (10/17/2025 2:54 PM EST) [facility] POC Anion Gap, Arterial 10 3 - 16 mmol/L 10/17/2025 3:55 PM EST [facility] Blood, Arterial 10/17/2025 2 :54 PM EST 10/17/2025 3:55 PM EST Vani Winkler MD POINT OF CARE TEST ORDERABLE S Final Result [facility] [address] * (ABNORMAL) POC Chloride (10/17/2025 2:54 PM EST) [facility] POC Chloride 112(H) 98 - 110 mmol/L 10/17/2025 3:55 PM EST [facility] Blood, Arterial 10/17/2025 2 :54 PM EST 10/17/2025 3:55 PM EST Vani Winkler MD POINT OF CARE TEST ORDERABLE S Final Result [facility] [address] * (ABNORMAL) POC Hemoglobin (10/17/2025 2:54 PM EST) [facility] POC Hemoglobin 8.7(L) 14.0 - 18.0 g/dL 10/17/2025 3:55 PM EST [facility] Blood, Arterial 10/17/2025 2 :54 PM EST 10/17/2025 3:55 PM EST Vani Winkler MD POINT OF CARE TEST ORDERABLE S Final Result Performing Organization Address City/[facility]/ZIP Co de Phone Number [facility] [address] [place] [address]. [address] * (ABNORMAL) POC hematocrit (10/17/2025 2:54 PM EST) [facility] POC Hematocrit 26.0(L) 40 - 52 % 10/17/2025 3:55 PM EST [facility] Blood, Arterial 10/17/2025 2 :54 PM EST 10/17/2025 3:55 PM EST Vani Winkler MD POINT OF CARE TEST ORDERABLE S Final Result Performing Organization Address [facility] Co de Phone Number [facility] [address] [facility] * POC Lactate (10/17/2025 2:54 PM EST) [facility] POC Lactate 1.23 0.50 - 2.20 mmol/L 10/17/2025 3:55 PM EST [facility] Blood, Arterial 10/17/2025 2 :54 PM EST 10/17/2025 3:55 PM EST Vani Winkler MD POINT OF CARE TEST ORDERABLE S Final Result Performing Organization Address City/[facility] Co de Phone Number [facility] [address] [place] [address]. [address] * POC Glucose (10/17/2025 2:54 PM EST) [facility] POC Glucose, Arterial 74 70 - 100 mg/dL 10/17/2025 3:55 PM EST [facility] Blood, Arterial 10/17/2025 2 :54 PM EST 10/17/2025 3:55 PM EST Vani Winkler MD POINT OF CARE TEST ORDERABLE S Final Result Performing Organization Address City/[facility]/ZIP Co de Phone Number [facility] [address] [facility] * POC Ionized Calcium (10/17/2025 2:54 PM EST) POC Ionized Calcium 4.70 4.50 - 5.30 mg/dL 10/17/2025 3:55 PM EST [facility] Blood, Arterial 10/17/2025 2 :54 PM EST 10/17/2025 3:55 PM EST Vani Winkler MD POINT OF CARE TEST ORDERABLE S Final Result Performing Organization Address [facility] Co de Phone Number [facility] [address] [facility] * (ABNORMAL) POC Potassium (10/17/2025 2:54 PM EST) POC Potassium 3.2(L) 3.5 - 5.3 mmol/L 10/17/2025 3:55 PM EST [facility] Blood, Arterial 10/17/2025 2 :54 PM EST 10/17/2025 3:55 PM EST Vani Winkler MD POINT OF CARE TEST ORDERABLE S Final Result Performing Organization Address City/[facility]/ZIP Co de Phone Number [facility] [address] [facility] * POC Sodium (10/17/2025 2:54 PM EST) POC Sodium 145 136 - 146 mmol/L 10/17/2025 3:55 PM EST [facility] Blood, Arterial 10/17/2025 2 :54 PM EST 10/17/2025 3:55 PM EST Vani Winkler MD POINT OF CARE TEST ORDERABLE S Final Result [facility] [address] [facility] * POC TCO2 (10/17/2025 2:54 PM EST) POC TCO2, Arterial 24 23 - 27 mmol/L 10/17/2025 3:55 PM EST [facility] Blood, Arterial 10/17/2025 2 :54 PM EST 10/17/2025 3:55 PM EST Vani Winkler MD POINT OF CARE TEST ORDERABLE S Final Result Performing Organization Address [facility] Co de Phone Number [facility] [address] [facility] * (ABNORMAL) POC O2 SAT (10/17/2025 2:54 PM EST) POC O2 Saturation, Arterial 100(H) 95 - 98 % 10/17/2025 3:55 PM EST [facility] Blood, Arterial 10/17/2025 2 :54 PM EST 10/17/2025 3:55 PM EST Result [facility] Vani Winkler MD POINT OF CARE TEST ORDERABLE S Final Result [facility] [address] [place] [address]. [address] * POC Base Excess (10/17/2025 2:54 PM EST) POC Base Excess, Arterial -2 -2 - 3 mmol/L 10/17/2025 3:55 PM EST [facility] Blood, Arterial 10/17/2025 2 :54 PM EST 10/17/2025 3:55 PM EST Vani Winkler MD POINT OF CARE TEST ORDERABLE S Final Result [facility] [address] * POC HCO3 (10/17/2025 2:54 PM EST) POC HCO3, Arterial 23 22 - 26 mmol/L 10/17/2025 3:55 PM EST [facility] Blood, Arterial 10/17/2025 2 :54 PM EST 10/17/2025 3:55 PM EST Vani Winkler MD POINT OF CARE TEST ORDERABLE S Final Result Performing Organization Address City/[facility]/ZIP Co de Phone Number [facility] [address] * (ABNORMAL) POC PO2 (10/17/2025 2:54 PM EST) POC pO2, Arterial 179(H) 80 - 100 mm Hg 10/17/2025 3:55 PM EST [facility] Blood, Arterial 10/17/2025 2 :54 PM EST 10/17/2025 3:55 PM EST Vani Winkler MD POINT OF CARE TEST ORDERABLE S Final Result Performing Organization Address City/[facility]/ZIP Co de Phone Number [facility] [address] * POC PCO2 (10/17/2025 2:54 PM EST) POC pCO2, Arterial 40 35 - 45 mm Hg 10/17/2025 3:55 PM EST [facility] Blood, Arterial 10/17/2025 2 :54 PM EST 10/17/2025 3:55 PM EST Vani Winkler MD POINT OF CARE TEST ORDERABLE S Final Result [facility] [address] * POC pH (10/17/2025 2:54 PM EST) POC pH, Arterial 7.37 7.35 - 7.45 10/17/2025 3:55 PM EST [facility] Blood, Arterial 10/17/2025 2 :54 PM EST 10/17/2025 3:55 PM EST Vani Winkler MD POINT OF CARE TEST ORDERABLE S Final Result Performing Organization Address [facility] Co de Phone Number [facility] [address] [facility] * (ABNORMAL) POC INR (10/17/2025 2:53 PM EST) Prothrombin Time INR, POC 2.4(H) 0.8 - 1.4 10/18/2025 12:07 AM EST [facility] Comment: Test results may [...] ORDERABLE S Final Result Performing Organization Address City/[facility] Co de Phone Number [facility] [address] [facility] * Routine Culture plus Stain (Surgical Swab) (10/17/2025 2:50 PM EST) Gram Stain Result Rare Polymorphonuclear Leukocytes Seen [facility] Gram Stain Result No Organisms Seen; [facility] Culture Result No Growth After 3 Days [facility] Surgical Swab PERITONEAL FLUID / Unknown 10/17/2025 2:50 PM EST Comment:1. Ascites-anaerobic , aerobic, and fungal Narrative [facility] - 10/20/2025 11:09 AM EST 1. Ascites-anaerobic, aerobic, and fungal 1. Ascites-anaerobic, aerobic, and fungal Vani Winkler MD MICROBIOLOGY - GENERAL ORDER MARYA Final Result [facility] [address] * Anaerobic culture (Surgical Swab) (10/17/2025 2:50 PM EST) Culture Result No Anaerobes Isolated in 5 Days [facility] Surgical Swab PERITONEAL FLUID / Unknown 10/17/2025 2:50 PM EST Comment:1. Ascites-anaerobic , aerobic, and fungal Narrative [facility] - 10/22/2025 11:32 AM EST 1. Ascites-anaerobic, aerobic, and fungal 1. Ascites-anaerobic, aerobic, and fungal Vani Winkler MD MICROBIOLOGY - GENERAL ORDER MARYA Final Result Performing Organization Address City/[facility] Co de Phone Number [facility] [address] * (ABNORMAL) TEG-Standard Global Hemostasis (Rapid TEG with Heparin Effect, Contains a Baseline TEG) (10/17/2025 10:19 AM EST) Citrated Kaolin Reaction Time (TEGHEPARINASE) 7.2 4.6 - 9.1 minutes 10/17/2025 11:27 AM EST [facility] Citrated Rapid Teg Maximum Amplitude (TEGHEPARINASE) <40.0(L) 52.0 - 70.0 mm 10/17/2025 11:27 AM EST [facility] Citrated Functional Fibrinogen Maximum Amplitude (TEGHEPARINASE) 5.8(L) 15.0 - 32.0 mm 10/17/2025 11:27 AM EST [facility] Citrated Kaolin W/Heparinase Reaction Time (TEGHEPARINASE) 6.7 4.3 - 8.3 minutes 10/17/2025 11:27 AM EST [facility] Citrated Kaolin K-Time (TEGHEPARINASE) 2.9(H) 0.8 - 2.1 minutes 10/17/2025 11:27 AM EST [facility] Citrated Kaolin Angle (TEGHEPARINASE) 64.4 63.0 - 78.0 degrees 10/17/2025 11:27 AM EST [facility] Citrated Kaolin Maximum Amplitude (TEGHEPARINASE) <40.0(L) 52.0 - 69.0 mm 10/17/2025 11:27 AM EST [facility] Citrated Functional Fibrinogen- Fibrinogen Level (TEGHEPARINASE) 156.5(L) 278.0 - 581.0 mg/dL 10/17/2025 11:27 AM EST [facility] Whole Blood (Citrate) 10/17/2025 10:19 AM EST 10/17/2025 10:46 AM EST [facility] LAB BLOOD ORDERABLES Final Re sult Performing Organization Address [facility]/ZIP Co de Phone Number [facility] [address] * Hepatitis C RNA, Quant Reflex to Genotyp (10/17/2025 10:19 AM EST) International Units Not Detected IU/mL 10/19/2025 2:12 PM EST [facility] Comment:Test methodology for HCV [...] IU/mL 10/19/2025 2:12 PM EST [facility] Comment:HCV RNA not detected . Plasma 10/17/2025 10:1 9 AM EST 10/17/2025 11:09 AM EST [facility] BLOOD ORDERABLES Final Re sult [facility] [address] * (ABNORMAL) APTT, No Anticoagulant (10/17/2025 10:19 AM EST) aPTT 41.2(H) 25.5 - 35.0 seconds 10/17/2025 11:02 AM EST [facility] Plasma 10/17/2025 10:1 9 AM EST 10/17/2025 10:46 AM EST [facility] LAB BLOOD ORDERABLES Final Re sult [facility] [address] [place] [address]. [address] * (ABNORMAL) Fibrinogen (10/17/2025 10:19 AM EST) Pathologist [facility] Fibrinogen 116(L) 218 - 406 mg/dL 10/17/2025 11:08 AM EST [facility] Plasma 10/17/2025 10:1 9 AM EST 10/17/2025 10:46 AM EST [facility] BLOOD ORDERABLES Final Re sult Performing Organization Address City/[facility]/ZIP Co de Phone Number [facility] [address] [place] [address]. [address] * Magnesium, STAT (10/17/2025 10:18 AM EST) Pathologist [facility] Magnesium 1.7 1.5 - 2.5 mg/dL 10/17/2025 11:46 AM EST [facility] Plasma 10/17/2025 10:1 8 AM EST 10/17/2025 10:46 AM EST [facility] BLOOD ORDERABLES Final Re sult Performing Organization Address City/[facility] Co de Phone Number [facility] [address] [place] [address]. [address] * (ABNORMAL) Jose-Mims Virus VCA IgG Ab (10/17/2025 10:18 AM EST) Pathologist [facility] EBV VCA IgG Positive( A) Negative 10/17/2025 12:18 PM EST [facility] Comment:Presence of detectab le VCA IgG antibodies. A positive result indicates current or past exposure to Jose-Mims virus. EBV IGG NUM >750.00(H ) 0.00 - 17.99 U/mL 10/17/2025 12:18 PM EST [facility] Serum 10/17/2025 10:1 8 AM EST 10/17/2025 10:46 AM EST [facility] BLOOD ORDERABLES Final Re sult [facility] [address] [facility]. [address] * CMV IgG Antibody (10/17/2025 10:18 AM EST) CMV IgG Negative Negative 10/17/2025 12:16 PM EST [facility] CMV IGG NUM <0.20 0.00 - 0.59 U/mL 10/17/2025 12:16 PM EST [facility] Serum 10/17/2025 10:1 8 AM EST 10/17/2025 10:46 AM EST [facility] LAB BLOOD ORDERABLES Final Re sult Performing Organization Address City/[facility]/ZIP Co de Phone Number [facility] [address] [facility]. [address] * HIV 1+2 Antibody/Antigen with Reflex (10/17/2025 10:18 AM EST) HIV 1+2 AB/AGN Nonreactive Nonreactive 10/17/2025 12:16 PM EST [facility] Serum 10/17/2025 10:1 8 AM EST 10/17/2025 10:46 AM EST Narrative [facility] - 10/17/2025 12:16 PM EST \HIVRNR [facility] BLOOD ORDERABLES Final Re sult [facility] [address] * Hepatitis B Core Antibody (10/17/2025 10:18 AM EST) Hep B Core Total Ab Nonreactive Nonreactive 10/17/2025 12:17 PM EST [facility] Comment:Health Department no tified in accordance with reportable infectious disease guidelines. Serum 10/17/2025 10:1 8 AM EST 10/17/2025 10:46 AM EST Narrative [facility] - 10/17/2025 12:17 PM EST A nonreactive final interpretation indicates that anti-HBc antibodies were not detected in the sample; it is possible that the individual is not infected with HBV. [facility]assi Inman [place] [facility] BLOOD ORDERABLES Final Re sult Performing Organization Address City/[facility]/ZIP Co de Phone Number [facility] [address] [facility]. [address] * Hepatitis C Antibody (10/17/2025 10:18 AM EST) HCV Ab Nonreactive Nonreactive 10/17/2025 12:25 PM EST [facility] Comment:Health Department no tified in accordance with reportable infectious disease guidelines. Serum 10/17/2025 10:1 8 AM EST 10/17/2025 10:46 AM EST Narrative [facility] - 10/17/2025 12:25 PM EST Antibodies to HCV not detected; does not exclude the possibility of exposure to HCV. [facility] BLOOD ORDERABLES Final Re sult [facility] [address] [facility]. [address] * (ABNORMAL) Hepatitis B Surface Antibody, Quantitati (10/17/2025 10:18 AM EST) Hep B S Ab Reactive( A) Nonreactive 10/17/2025 12:29 PM EST [facility] HBSAB NUMBER 260.00(H) 0.00 - 7.99 mIU/mL 10/17/2025 12:29 PM EST [facility] Serum 10/17/2025 10:1 8 AM EST 10/17/2025 10:46 AM EST [facility] - 10/17/2025 12:29 PM EST Individual is considered immune to HBV infection. [facility] BLOOD ORDERABLES Final Re sult Performing Organization Address City/[facility]/ZIP Co de Phone Number [facility] [address] * Hepatitis B surface antigen (10/17/2025 10:18 AM EST) Hep B Surface Ag Nonreactive Nonreactive 10/17/2025 12:21 PM EST [facility] Comment:Health Department no tified in accordance with reportable infectious disease guidelines. Serum 10/17/2025 10:1 8 AM EST 10/17/2025 10:46 AM EST [facility] - 10/17/2025 12:21 PM EST Specimen is considered negative for HBsAg. [facility] BLOOD ORDERABLES Final Re sult Performing Organization Address [facility]/ZIP Co de Phone Number [facility] [address] [facility]. [address] * Hepatitis A Antibody Total (10/17/2025 10:18 AM EST) Anti-HAV Total (IgG + IgM) Reactive 10/17/2025 12:22 PM EST [facility] Serum 10/17/2025 10:1 8 AM EST 10/17/2025 10:46 AM EST [facility] - 10/17/2025 12:22 PM EST HAV antibodies detected [facility] BLOOD ORDERABLES Final Re sult Performing Organization Address City/[facility]/ZIP Co de Phone Number [facility] [address] * Vitamin D 25 Hydroxy (10/17/2025 10:18 AM EST) Vit D, 25-Hydroxy 39.3 30.0 - 100.0 ng/mL 10/17/2025 12:15 PM EST [facility] Comment: Vitamin D deficiency has been defined by the [place] [employer] (IOM) and an Endocrine Society [...] BLOOD ORDERABLES Final Re sult [facility] [address] [place] [address]. [address] * Antibody Screen (10/17/2025 10:18 AM EST) Antibody Screen Negative 10/17/2025 11:09 AM EST [facility] Blood 10/17/2025 10:1 8 AM EST 10/17/2025 10:26 AM EST Narrative [facility] - 10/17/2025 11:17 AM EST Testing performed by [facility] Transfusion [facility] INTER[facility] BLOOD BANK TEST ORDERABLES Fi nal Result [facility] [address] [place] [address]. [address] * ABO/Rh (10/17/2025 10:18 AM EST) ABO Grouping A 10/17/2025 10:53 AM EST [facility] Rh Type Positive 10/17/2025 10:53 AM EST [facility] Blood 10/17/2025 10:1 8 AM EST 10/17/2025 10:26 AM EST [facility] BLOOD BANK TEST ORDERABLES Fi nal Result [facility] [address] [facility]. [address] * (ABNORMAL) Hepatic Function Panel (10/17/2025 10:18 AM EST) Total Bilirubin 4.9(H) 0.0 - 1.5 mg/dL 10/17/2025 11:47 AM EST [facility] Bilirubin, Direct 1.35(H) 0.00 - 0.40 mg/dL 10/17/2025 11:47 AM EST [facility] AST 39 13 - 39 U/L 10/17/2025 11:47 AM EST [facility] ALT 27 7 - 52 U/L 10/17/2025 11:47 AM EST [facility] Alkaline Phosphatase 143(H) 36 - 125 U/L 10/17/2025 11:47 AM EST [facility] Total Protein 6.5 6.4 - 8.9 g/dL 10/17/2025 11:47 AM EST [facility] Albumin 2.3(L) 3.5 - 5.7 g/dL 10/17/2025 11:47 AM EST [facility] Bilirubin, Indirect 3.55(H) 0.00 - 1.10 mg/dL 10/17/2025 11:47 AM EST [facility] Plasma 10/17/2025 10:1 8 AM EST 10/17/2025 10:46 AM EST [facility] LAB BLOOD ORDERABLES Final Re sult [facility] [address] [facility]. [address] * (ABNORMAL) Renal Function Panel w/EGFR (10/17/2025 10:18 AM EST) Pathologist [facility] Sodium 141 133 - 146 mmol/L 10/17/2025 11:47 AM [facility] Potassium 3.3(L) 3.5 - 5.3 mmol/L 10/17/2025 11:47 AM [facility] Chloride 110 98 - 110 mmol/L 10/17/2025 11:47 AM [facility] CO2 29 21 - 33 mmol/L 10/17/2025 11:47 AM [facility] Comment:High lactate dehydro genase concentrations in patient samples may cause falsely increased bicarbonate results. If markedly elevated LDH is observed or suspected, please assess results in conjunction with patient`s clinical presentation. In cases of discrepant results, consider evaluating CO2 in with a blood gas order. Anion Gap 2(L) 3 - 16 mmol/L 10/17/2025 11:47 AM [facility] BUN 13 7 - 25 mg/dL 10/17/2025 11:47 AM [facility] Creatinine 0.81 0.60 - 1.30 mg/dL 10/17/2025 11:47 AM [facility] Glucose 81 70 - 100 mg/dL 10/17/2025 11:47 AM [facility] Calcium 8.1(L) 8.6 - 10.3 mg/dL 10/17/2025 11:47 AM [facility] Phosphorus 2.8 2.1 - 4.7 mg/dL 10/17/2025 11:47 AM [facility] Albumin 2.3(L) 3.5 - 5.7 g/dL 10/17/2025 11:47 AM [facility] Osmolality, Calculated 291 278 - 305 mOsm/kg 10/17/2025 11:47 AM [facility] EGFR >90 10/17/2025 11:47 AM [facility] Comment: As of 2022, the [...] AM EST 10/17/2025 10:46 AM EST [facility] In[place] [facility] BLOOD ORDERABLES Final Re sult Performing Organization Address [facility] de Phone Number [facility] [address] * Hemoglobin A1C (10/17/2025 10:18 AM EST) Hemoglobin A1C 4.0 4.0 - 5.6 % 10/17/2025 1:42 PM EST [facility] Comment: Hemoglobin A1c Interpretation Guidelines: Normal: [...] AM EST 10/17/2025 10:46 AM EST Kassi Storm [place] [facility] BLOOD ORDERABLES Final Re sult Performing Organization Address [facility] de Phone Number [facility] [address] [facility]. [address] * (ABNORMAL) Venous Blood Gas, Line/Syringe, STAT (10/17/2025 10:18 AM EST) PH-Line Draw 7.37 7.32 - 7.42 10/17/2025 10:27 AM EST [facility] PCO2-Line Draw 46 41 - 51 mm Hg 10/17/2025 10:27 AM [facility] PO2-Line Draw 29 25 - 40 mm Hg 10/17/2025 10:27 AM [facility] HCO3-Line Draw 24 24 - 28 mmol/L 10/17/2025 10:27 AM [facility] CO2 Content-Line Draw 28 25 - 29 mmol/L 10/17/2025 10:27 AM [facility] Base Excess-Line Draw 0.9 -2.0 - 3.0 mmol/L 10/17/2025 10:27 AM [facility] %HBO2-Line Draw 38.5(L) 40.0 - 70.0 % 10/17/2025 10:27 AM [facility] Carboxyhgb-Rebecca e Draw 1.4 0.0 - 2.0 % 10/17/2025 10:27 AM [facility] Comment: CARBOXYHEMOGLOBIN (CO) REFERENCE RANGES: Non-Smokers: <2 % Smokers: <8 % TOXIC: >20 % Methemoglobin- Line Draw 0.6 0.0 - 1.5 % 10/17/2025 10:27 AM [facility] Blood, Venous 10/17/2025 10: 18 AM EST 10/17/2025 10:24 AM EST [facility] BLOOD ORDERABLES Final Re sult [facility] [address] * (ABNORMAL) Protime-INR (10/17/2025 10:18 AM EST) Protime 21.7(H) 12.1 - 15.1 seconds 10/17/2025 11:01 AM [facility] INR 1.8(H) 0.9 - 1.1 10/17/2025 11:01 AM [facility] Comment: RECOMMENDED THERAPEUTIC RANGES USING INR : Stable oral anticoagulant therapy: 2.0 - 3.0 Mechanical prosthetic heart valve: 2.5 - 3.5 Recurrent acute myocardial infarction: 2.5 - 3.5 Plasma 10/17/2025 10:1 8 AM EST 10/17/2025 10:46 AM EST [facility] BLOOD ORDERABLES Final Re sult [facility] [address] [place], [place] [address] * (ABNORMAL) Differential (10/17/2025 10:18 AM EST) Neutrophils Relative 45.0 40.0 - 80.0 % 10/17/2025 10:59 AM EST [facility] Lymphocytes Relative 34.7 15.0 - 45.0 % 10/17/2025 10:59 AM EST [facility] Monocytes Relative 12.9(H) 0.0 - 12.0 % 10/17/2025 10:59 AM EST [facility] Eosinophils Relative 6.4 0.0 - 8.0 % 10/17/2025 10:59 AM EST [facility] Basophils Relative 1.0 0.0 - 1.0 % 10/17/2025 10:59 AM EST [facility] nRBC 0 0 - 0 /100 WBC 10/17/2025 10:59 AM EST [facility] Neutrophils Absolute 1,845 1,520 - 8,640 /uL 10/17/2025 10:59 AM EST [facility] Lymphocytes Absolute 1,423 570 - 4,860 /uL 10/17/2025 10:59 AM EST [facility] Monocytes Absolute 529 0 - 1,296 /uL 10/17/2025 10:59 AM EST [facility] Eosinophils Absolute 262 0 - 864 /uL 10/17/2025 10:59 AM EST [facility] Basophils Absolute 41 0 - 108 /uL 10/17/2025 10:59 AM EST [facility] Whole Blood 10/17/2025 10:1 8 AM EST 10/17/2025 10:46 AM EST [facility] LAB BLOOD ORDERABLES Final Re sult [facility] [address] * (ABNORMAL) CBC (10/17/2025 10:18 AM EST) WBC 4.1 3.8 - 10.8 10E3/uL 10/17/2025 10:59 AM EST [facility] RBC 3.32(L) 4.20 - 5.80 10E6/uL 10/17/2025 10:59 AM EST [facility] Hemoglobin 11.2(L) 13.2 - 17.1 g/dL 10/17/2025 10:59 AM EST [facility] Hematocrit 32.9(L) 38.5 - 50.0 % 10/17/2025 10:59 AM EST [facility] MCV 99.1 80.0 - 100.0 fL 10/17/2025 10:59 AM EST [facility] MCH 33.8(H) 27.0 - 33.0 pg 10/17/2025 10:59 AM EST [facility] MCHC 34.1 32.0 - 36.0 g/dL 10/17/2025 10:59 AM EST [facility] RDW 17.3(H) 11.0 - 15.0 % 10/17/2025 10:59 AM EST [facility] Platelets 61(L) 140 - 400 10E3/uL 10/17/2025 10:59 AM EST [facility] MPV 8.2 7.5 - 11.5 fL 10/17/2025 10:59 AM [facility] Whole Blood 10/17/2025 10:1 8 AM EST 10/17/2025 10:46 AM EST [facility] INTER[facility] LAB BLOOD ORDERABLES Final Re sult [facility] [address] * Toxoplasma gondii Antibody, IgG (10/17/2025 10:18 AM EST) Pathologist [facility] Toxoplasma Gondii IgG <3.0 0.0 - 7.1 IU/mL 10/18/2025 4:54 AM EST [facility] Comment: Negative <7.2 Equivocal 7.2 - 8.7 Positive >8.7 Serum 10/17/2025 10:1 8 AM EST 10/18/2025 5:06 AM EST Narrative [facility] - 10/18/2025 5:06 AM EST PERFORMED AT: [facility] [address] [id number] CURING SUPERVISOR: Mateo Miller, PhD PHONE: [phone] us [facility] LAB BLOOD ORDERABLES Final Re sult [facility] [address] [place] [address], [facility] * X-ray Portable Chest (10/17/2025 10:11 [...] HAZARDOUS MEDICATION 2013 (Given - Provider: Anne Vail, SILVIO) tacrolimus (PROGRAF) capsule 3 mg (CANCELED) 3 [...] documented as of this encounter Care Teams Washtub Worker Helper Relationship Specialty Start Date End Date System, Provider Not In PCP - General 09/10/25 10/24/25 documented as of this encounter
--- OUTSIDE RECORDS SUMMARY | 2025-10-17 13:37 | XMS_ITS | Encounter Summary ---
Author Organization [facility] Address [address] [place] [address] Care Team Providers Care Parking Lot Attendant Name Role Phone System, Provider Not [...] release of HIV test results or diagnoses. [id number] Reason for Visit * Auth/Cert (Routine) Specialty Diagnoses / Procedures Referred By Gianna t Referred To Contact Diagnoses TRANSPLANT LIVER Procedures TRANSPLANT LIVER [facility] [address] [place] [address] Phone: tel: Referral ID Status Reason Start Date Expiration Date Visits Re quested Visits Authorized [id number] 1 1 Encounter Details Date Type Department Care Team (Late st Contact Info) Description 10/17/2025 1:37 PM EST Anesthesia Event [facility] [address] [place] [address] Oskar Torres MD [address] [place] [address] Ann Blackwell MD [address] [place] [address] Anesthesia Record Procedure Summary Procedure Name Responsible Anesthesiologist Anesthesia Start Time Anesthesia Stop Time TRANSPLANT LIVER (Abdomen) Oskar Torres MD 10/17/25 1337 10/17/25 2245 Events Date Time Event Comment 10/17/2025 1230 1337 An Start 1337 An Start Data 1349 An Induction 1350 An Intubation 1446 Time Out 1716 Provider Handoff Type of Ane sthetic: {Type of Anesthesia:1948684860} Airway: Type: {Airway:0368571089} Difficult BMV / Intubation: {YES/NO WITH YES WILDCARD:13635672} Vascular Access: {Vascular Access:0696060616} Monitors: {Monitor:3205725935} Patient Specific Management Goals: {yes/no :07552025} Outstanding Issues to Address: {Outstanding Issues:7952387650} Disposition: {Disposition:0658849226} 1723 Anhepatic Phase 1745 Quick Note IVC [...] sodium chloride 0.9% 1 00 mL IVPB (Hjxt3Yly) 6 g cefTRIAXone (ROCEPHIN) 2 g in [...] Per order 10/17/25 0000 by Karen Washington, MANAGER GROCERY 10/18/25 0800 by Angela Tamez RN Peripheral [...] living in a jail (including now)? No 10/17/2025 Utilities Answer Date Recorded In the past 12 months has th e [employer], gas, oil, or water company threatened to shut off services in your home? No 10/17/2025 Sex and Gender Information Value Date Recorded Sex Assigned at Not on file Legal Sex Male 3:33 PM EDT Gender Identity Not on file Sexual Orientation Not on file documented as of this encounter Mental Status * BP/Pulse Question Answer Entry Date Author ETCO2 35 10/17/2025 10:32 PM EST Inte rface, Datacaptor Device In documented in this encounter Progress Notes * Slade Munoz [...] 12 Temp: 98.2 ??F (36.8 ??C) TempSrc: [place] SpO2: 98% 99% 98% 95% Weight: Height: Last Temperature: 98.2 ??F (36.8 ??C) (10/19/2025 4:00 AM) Complications: There were no known notable events for this encounter. documented in this encounter H&P Notes * Slade Munoz MD - 10/17/2025 11:22 AM EST [facility] DEPARTMENT OF ANESTHESIOLOGY PRE-PROCEDURAL EVALUATION David [...] a power mower. Hypertension is. (-) past [place], CAD, cardiomyopathy, CABG/stent, dysrhythmias, angina, CHF. Neuro/Muscoloskeletal/Psych: [...] Resource Strain: Low Risk (06/15/2025) Received from [facility] Overall Financial Resource Strain (CARDIA) How hard is it for you to pay for the very basics like food, housing, medical care, and heating?: Not hard at all Food Insecurity: No Food Insecurity (06/15/2025) Received from [facility] Hunger Vital Sign Within the past 12 months, you worried that your food would run out before you got the money to buymore.: Never true Within the past 12 months, the food you bought just didn't last and you didn't have money to get more.: Never true Transportation Needs: No Transportation Needs (06/15/2025) Received from [facility] PRAPARE - Transportation In the past 12 months, has lack of transportation kept you from medical appointments or from getting medications?: No In the past 12 months, has lack of transportation kept you from meetings, work, or from getting things needed for daily living?: No Physical Activity: Inactive (06/15/2025) Received from [facility] Exercise Vital Sign On average, how many days per week do you engage in moderate to strenuous exercise (like a brisk walk)?: 0 days On average, how many minutes do you engage in exercise at this level?: 0 min Stress: No Stress Concern Present (06/15/2025) Received from [facility] [place] [facility] [employer] - Occupational Stress Questionnaire Do you feel stress - tense, restless, nervous, or anxious, or unable to sleep at night because yourmind is troubled all the time - these days?: Only a little Social Connections: Socially Integrated (06/15/2025) Received from [facility] Social Connection and Isolation Panel In a typical week, how many times do you talk on the phone with family, friends, or neighbors?: More than three times a week How often do you get together with friends or relatives?: More than three times a week How often do you attend catholic or denominational services?: More than 4 times per year Do you belong to any clubs or organizations such as catholic groups, unions, fraternal [...] agreed to the planabove. Slade Munoz MD, [facility] Department of Anesthesiology [1] Allergies Allergen [...] Procedure: Insert arterial line Slade Munoz MD, [facility] Department of Anesthesiology * Slade Owusu [...] Procedure Name Priority Date/Time Associated Diagnosis Comments ANESTHESIA PULMONARY ARTERY CATHETER Routine 10/17/2025 2:36 [...] team post op PA catheter complications: None Result [facility] Slade Munoz MD IV THERAPY ORDERABLES Final Resu lt * CENTRAL LINE SINGLE LUMEN PERFORMABLE, HC ANESTHESIA DUAL LUMEN INTRODUCER (MAC) CENTRAL [...] with tape, sterile dressing applied and sutured us Slade Munoz MD IV THERAPY ORDERABLES Final [...] Admitted) 10/17/25 0700 - 10/18/25 0659 Shift 1786-3636 5389-9035 24 Hour Total 1232-9004 9387-0049 1847-1548 24 Hour Total INTAKE I.V. 8000(80.2) 8000(80.2) [...] in sodium chloride 0.9% 100 mL IVPB (Bweg1Zjd)) 100 200 300 Volume (mL) (albumin human bottle 5%) 500 500 Volume (mL) (albumin human bottle 25%) 50 50 Volume (mL) (cefTRIAXone (ROCEPHIN) 2 g in sodium chloride 0.9% 20 mL IV Push) 20 20 Shift Total(mL/kg) 120(1.2) 43738(138.3) 30505(139.5) OUTPUT Urine 1850 1850 Urine 1850 1850 Urine Occurrence 1 x 1 x Blood 70684 90490 Est Blood Loss 99729 58420 Shift Total(mL/kg) 48490(128.8) 23582(128.8) Weight (kg) 99.8 99.8 99.8 99.8 documented [...] in sodium chloride 0.9% 100 mL IVPB (Nbwb0Peo) 2 g, Intravenous, at 200 mL/hr, Once, On Wed10/17/25 at 1000, For 1 dose, Begin infusion 20-60 minutes prior to incision Use Wkwx5Dxw Adapter - Mix Thoroughly Before Administration, Pre-op [...] Starting on Wed10/17/25 at 2131, Anesthesia Intra-op 10/17/2025 9:31 PM EST 40 mcg/kg/min 23.952 [...] wide open unless otherwise specified by provider 10/17/2025 4:13 PM EST Transfuse Cryoprecipitate Routine 10/17/2025 4:17 PM EST Transfuse Cryoprecipitate Routine 10/17/2025 6:18 PM EST Transfuse Cryoprecipitate Routine 10/17/2025 6:31 PM EST Transfuse Cryoprecipitate Routine 10/17/2025 8:45 PM EST Transfuse Cryoprecipitate Routine 10/17/2025 8:49 PM EST Transfuse Fresh Frozen Plasma Routine 10/17/2025 7:38 PM EST Transfuse Fresh Frozen Plasma Routine 10/17/2025 7:39 PM EST Transfuse Fresh Frozen Plasma Routine 10/17/2025 8:05 PM EST Transfuse Fresh Frozen Plasma Routine New 10/17/2025 8:05 PM EST Transfuse Fresh Frozen Plasma Routine New 10/17/2025 9:15 PM EST Transfuse Platelets Routine 10/17/2025 4:06 PM EST Transfuse Platelets Routine 10/17/2025 7:03 PM EST Transfuse Platelets Routine New Bag 10/17/2025 9:01 PM EST Transfuse RBC Routine New Bag 10/17/2025 3:15 PM EST Transfuse RBC Routine New Bag 10/17/2025 3:22 PM EST Transfuse RBC Routine New Bag 10/17/2025 5:19 PM EST Transfuse RBC Routine New Bag 10/17/2025 5:34 PM EST Transfuse RBC Routine New Bag 10/17/2025 5:34 PM EST vasopressin (VASOSTRICT) 40 [...] EST 0.04 Units/min 6 m L/hr New Bag 10/17/2025 3:21 PM EST 0.03 Units/min 4.5 [...] documented as of this encounter Care Teams Parking Lot Attendant Relationship Specialty Start Date End Date System, Provider Not In PCP - General 09/10/25 10/24/25 documented as of this encounter
--- OUTSIDE RECORDS SUMMARY | 2025-10-30 09:00 | XMS_ITS | Encounter Summary ---
Author Organization [facility] Address [address] [place] [address] Care Team Providers Care Elevator Troubleshooter Name Role Phone Dr. Chris Medel MD [...] release of HIV test results or diagnoses. [id number] Reason for Visit * Reason Comments Liver Transplant Follow-up Encounter Details Date Type Department Care Team (Late st Contact Info) Description 10/30/2025 9:00 AM EST Office Visit [facility] Liver Transplant at [address] [address] Lane Troy MD [address] [place] [address] Buddy Zimmerman MD [address] [place] [address] Encounter for therapeutic drug level monitoring (Primary Dx); Liver replaced by transplant (CMS-HCC); Immunosuppression ([facility]-HCC); Immunosuppressive management encounter following liver transplant ([facility]-HCC) Social History Tobacco Use Types Packs/Day [...] living in a mcc (including now)? No 10/17/2025 Utilities Answer Date Recorded In the past 12 months has th e [employer], gas, oil, or water [employer] threatened to shut off services in your [...] * BP Answer Date of Assessment Author 109/67 10/30/2025 8:15 AM EST Cam Coleman MA * Temp Answer Date of Assessment Author 97.4 10/30/2025 8:15 AM Cam Muhammad MA * Pulse Answer Date of Assessment Author 79 10/30/2025 8:15 AM Cam Muhammad MA * SpO2 Answer Date of Assessment Author 100 10/30/2025 8:15 AM Cam Muhammad MA * Height Answer Date of Assessment Author 66 10/30/2025 8:15 AM Cam Muhammad MA * Weight Answer Date of Assessment Author 2953.6 10/30/2025 8:15 AM Cam Muhammad MA * Weight in kg Answer Date of Assessment Author 83.73 10/30/2025 8:15 AM Cam Muhammad MA * Height in cm Answer Date of Assessment Author 167.6 10/30/2025 8:15 AM Cam Muhammad MA * Body Composition Question Answer Date [...] EST Interface , Doc Flowsheet In * Anthropometrics Question Answer Date of Assessment Author BMI (Calculated) 29.81 10/30/2025 8:15 AM EST Jojo Caldera MA * Height Percent Change Answer Date of Assessment Author 0 10/30/2025 8:15 AM EST Cam Coleman, MA * HIDDEN-Infusion Dashboard Answer Date of Assessment Author 109 10/30/2025 8:15 AM EST Cam Coleman, MA * BSA (Calculated - sq m) Answer Date of Assessment Author 1.97 10/30/2025 8:15 AM EST Coleman, Cam ontae, MA * Height and Weight Question Answer Date of Assessment Author Percent Weight Change Since 0 025 8:15 AM EST Jojo Coleman MA * Adult IBW/VT Calculations Question Answer Date of Assessment Author Low Range Vt 4 mL MALE 255.2 10/30/2025 8:15 AM EST Brayan Colemanvontae, MA Low Range Vt 4 mL FEMALE 237.2 10/30/2025 8:15 AM EST Clayton Colemanntae, MA IBW/kg (Calculated) Male 63.8 10/30/2025 8:15 AM EST Coleman, Javontae, MA Low Range Vt 6 mL MALE 382.8 10/30/2025 8:15 AM EST Coleman, Javontae, MA Moderate Range Vt 8 mL MALE 510.4 10/30/2025 8: 15 AM EST Coleman, Javontae, MA High Range Vt 10 mL MALE 638 10/30/2025 8:15 AM EST Clayton Colemanntae, MA IBW/kg (Calculated) FEMALE 59.3 10/30/2025 8:1 5 AM EST Coleman, Javontae, MA Low Range Vt 6 mL FEMALE 355.8 10/30/2025 8:15 AM EST Coleman, Javontae, MA Moderate Range Vt 8 mL FEMALE 474.4 10/30/2025 8:15 AM EST Coleman, Javontae, MA High Range Vt 10 mL FEMALE 593 10/30/2025 8:1 5 AM EST ColemanClaytonntae, MA * Temp (in Celsius) Answer Date of Assessment Author 36.3 10/30/2025 8:15 AM EST Cam Coleman MA * BP Answer Date of Assessment Author 109/67 10/30/2025 8:15 AM EST Cam Coleman MA * Height Answer Date of Assessment Author 66 10/30/2025 8:15 AM Cam Muhammad MA * Weight Answer Date of Assessment Author 2953.6 10/30/2025 8:15 AM Cam Muhammad MA * Calculated Energy Needs Question Answer Date of Assessment Author [place] St Jeor Equation (RMR) 1,570.09 10/30/2025 8:15 AM Jojo Muhammad MA Fluid Requirements (mL) 2,512.02 10/30/2025 8:15 A M Jojo Muhammad MA * Anthropometrics Question Answer Date of Assessment Author BMI (Calculated) 29.81 10/30/2025 8:15 AM EST Jojo Caldera MA * BMI (Calculated) Answer Date of Assessment Author 29.9 10/30/2025 8:15 AM EST Cam Coleman MA * Adult IBW/VT Calculations Question Answer Date of Assessment Author IBW/kg (Calculated) Male 63.8 10/30/2025 8:15 AM Jojo Muhammad MA IBW/kg (Calculated) FEMALE 59.3 10/30/2025 8:1 5 AM Jojo Muhammad MA * Anthropometrics Question Answer Date of Assessment Author Weight Change 0 10/30/2025 8:15 AM Jojo Muhammad MA documented as of this encounter Mental Status * BP Answer Entry Date Author 109/67 10/30/2025 8:15 AM Cam Muhammad MA * Pulse Answer Entry Date Author 79 10/30/2025 8:15 AM Cam Muhammad MA * Resp Answer Entry Date Author 16 10/30/2025 8:15 AM Cam Muhammad MA * SpO2 Answer Entry Date Author 100 10/30/2025 8:15 AM Cam Muhammad MA documented in this encounter Patient Instructions [...] 250 ft to mailbox and back up anderson. Appetite is not so good due to [...] Radiology: Explant pathology: Liver and gall bladder, [place], total hepatectomy with cholecystectomy: Liver: -Cirrhosis, mild [...] Nutrition: patient continues close f/u w/ transplant assembler product. - Bone health: Vit D level to be drawn ~POD#90. - Labs: Labs (CBC w/ diff, renal panel, liver panel, tacro level) twice weekly. Lipid panel, [id number] Vit D level to be drawn at [...] patient on this day. Buddy Zimmerman MD Second Grade [employer] hearth worker Gastroenterology and Transplant Hepatology [1] Allergies Allergen [...] documented as of this encounter Care Teams Elevator Troubleshooter Relationship Specialty Start Date End Date Dr. Chris Medel MD [address] [place] [address] PCP - General Primary Care 10/25/25 documented as of this encounter
--- OUTSIDE RECORDS SUMMARY | 2025-11-02 17:22 | XMS_ITS | Encounter Summary ---
Author Organization [facility] Address [address] [place] [id number] Care Team Providers Care Regulatory And Compliance Technician Name Role Phone Dr. Chris Medel [...] release of HIV test results or diagnoses. [id number] Reason for Referral * Surgical (Routine) - New Request Specialty Diagnoses / Procedures Referred By Gianna reyes Referred To Contact Gastroenterology Diagnoses Hyperbilirubinemia Procedures Case request GI: LIVER BIOPSY Breonna Villa MD [address] [place] [address] Phone: tel: fax: Referral ID Status Reason Start Date Expiration Date V isits Requested Visits Authorized [id number] New Request 11/05/2025 05/04/2026 1 1 Reason for Visit * Auth/Cert (Routine) Specialty Diagnoses / Procedures Referred By Gianna reyes Referred To Contact Transplant Diagnoses Elevated LFTs and bili [address] [place] [address] Phone: tel: Referral ID Status Reason Start Date Expiration Date Visits Re quested Visits Authorized [id number] 1 1 Encounter Details Date Type Department Care Team (Latest Contact Info) Description 11/02/2025 5:22 PM EST - 11/08/2025 5:43 PM EST Hospital Encounter [facility]CCP [address] [place] [id number] Vani Winkler MD [address] [facility] [place] [address] Immunosuppression (CMS-HCC) (Primary Dx); Hepatic encephalopathy (CMS-HCC); Pre-transplant evaluation for chronic liver disease; Encounter for pre-transplant evaluation for liver transplant; Hyperbilirubinemia; Anemia, unspecified type [D64.9]; Iron overload [E83.19]; 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 Never 11/02/2025 Q2: How many drinks containi ng alcohol do you have on a typical day when you are drinking? Patient does not drink Q3: How often do you have si x or more drinks on one occasion? Never 11/02/2025 PHQ-2 Answer Date Recorded PHQ-2 Total Score 0 09/10/2025 Hunger Vital Sign Answer Date Recorded Within the past 12 months, y ou worried that your food would run out before you got the money to buy more. Never true 11/02/20 25 Within the past 12 months, t he food you bought just didn't last and you didn't have money to get more. Never true 11/02/2025 PRAPARE - Transportation Answer Date Re corded In the past 12 months, has l ack of transportation kept you from medical appointments or from getting medications? No 10/15 In the past 12 months, has l ack of transportation kept you from meetings, work, or from getting things needed for daily living? No 11/02/2025 Housing Stability Vital Sign Answer Fransico e Recorded In the last 12 months, was t here a time when you were not able to pay the mortgage or rent on time? No 11/02/2025 In the past 12 months, how m any times have you moved where you were living? 0 11/02/2025 At any time in the past 12 m [facility], were you homeless or living in a mcfp (including now)? No 11/02/2025 Utilities Answer Date Recorded In the past 12 months has th e electric, gas, oil, or water company threatened to shut off services in your home? No 11/02/2025 Sex and Gender Information Value Date Recorded Sex Assigned at Not on file Legal Sex Male 3:33 PM EDT Gender Identity Not on file Sexual Orientation Not on file documented as of this encounter Last Filed Vital Signs Vital Sign Reading Time Taken Comments Blood Pressure 133/59 11/08/2025 12:32 PM EST Pulse 67 11/08/2025 12:32 PM EST Temperature 37.1 C (98.8 F) 11/08/2025 12:32 PM EST Respiratory Rate 17 11/08/2025 12:32 PM EST Oxygen Saturation 96% 11/08/2025 12:32 PM EST Inhaled Oxygen Concentration 96% 11/08/2025 1 2:32 PM EST Weight 79.4 kg (175 lb) 11/05/2025 10:45 AM EST Height 170.2 cm (5' 7 ) 11/05/2025 10:45 AM EST Body Mass Index 27.41 11/05/2025 10:45 AM EST documented in this encounter Functional Status * Pain Score Answer Date of Assessment Author 5 11/08/2025 5:09 PM EST Veronica Winter RN * Discharge Planning Question Answer Date of Assessment Author Pre-Procedure Discharge Plan Patient's Escort Present (Name in Comment) 11/02/2025 12:10 AM EST Rekha Servin RN Responsible Adult Stacy ( ) [phone] in 11/02/2025 12:10 AM EST Rekha Servin RN * HEENT Question Answer Date of Assessment Author SABINO (WDL) X 11/08/2025 2:00 PM EST Veronica Kebede RN R Eye Intact;Impaired vision 11/08/2025 2:00 PM EST Veronica Winter, SILVIO L Eye Intact;Impaired vision 11/08/2025 2:00 PM EST Veronica Winter, SILVIO R Ear Intact 11/08/2025 2:00 PM EST Veronica Kebede, SILVIO L Ear Intact 11/08/2025 2:00 PM EST Veronica Kebede, SILVIO Nose Intact 11/07/2025 8:01 PM EST Jonathan Lucia RN Nasal Drainage Color YADIRA 11/07/2025 8:[address] Jonathan Bazzi RN Nasal Drainage Consistency YADIRA 11/07/2025 8:01 PM Jonathan Candelario RN Throat Intact 11/07/2025 8:01 PM Jonathan Yeboah RN Tongue Clarence & moist 11/07/2025 8:01 PM EST Jonathan Lucia RN Voice Deep 11/07/2025 8:01 PM EST Jonathan Lucia RN Mucous Membrane(s) Moist;Clarence;Intact 11/08/2025 2:00 P M EST Veronica Winter RN Teeth Missing teeth 11/08/2025 2:00 PM EST Veronica Patel RN Lips Symmetrical;Intact 11/07/2025 8:01 PM Jonathan Candelario RN * Weight in kg Answer Date of Assessment Author 79.38 11/05/2025 10:45 AM EST Rekha Servin RN * Height in cm Answer Date of Assessment Author 170.2 11/05/2025 10:45 AM Rekha Corrigan RN * Vital Signs-Intra Procedure Question Answer Date of Assessment Author ETCO2 33 11/05/2025 11:30 AM EST Cony Castillo, director manufacturing engineering Rhythm NSR 11/05/2025 11:30 AM EST Cony Briscoe, SILVIO * Discharge Planning Question Answer Date of Assessment Author Pt.'s Inpatient - No DC at this time Yes 11/05/2025 1:30 PM Kenna Chu RN IV Removed? No 11/05/2025 1:30 PM Kenna Estevez RN IV Site Unremarkable? Yes 11/05/2025 1:30 PM Kenna Chu RN Pre-Procedure assessment unchanged Yes 11/04/2025 11:46 AM Kenna Chu RN Patient Condition Awake, Oriented;No Obvious Anesthesia related complications;Follows commands 11/04/2025 11:46 AM Kenna Chu RN Final Check Vital Signs Stable 11/04/2025 11 :46 AM Kenna Chu RN * Pre-Op Check List Question Answer Date of Assessment Author H&P Complete? Yes 11/05/2025 10:46 AM EST Rekha Arredondo, SILVIO * Patient Preparation Question Answer Date of Assessment Author Glasses or Contacts Removed Yes in room 11/05/2025 10:46 AM Rekha Corrigan RN * Pain Med Side Effects - Required every re-assessment Answer Date of Assessment Author None 11/07/2025 10:21 PM EST Jonathan Hector, SILVIO * Cipriano Score Answer Date of Assessment Author 10 11/05/2025 1:18 PM Kenna Chu, SILVIO * Cipriano Question Answer Date of Assessment Author Oxygenation 2 11/05/2025 1:18 PM Kenna Estevez, RN Activity 2 11/05/2025 1:18 PM Kenna Estevez, RN Circulation 2 11/05/2025 1:18 PM Kenna Estevez, RN Respiration 2 11/05/2025 1:18 PM Kenna Estevez, SILVIO Consciousness 2 11/05/2025 1:18 PM Kenna Cabezas, RN * [place] Coma Scale Question Answer Date of Assessment Author Eye Opening 1 11/08/2025 2:00 PM Veronica Duron RN Best Motor Response 6 11/08/2025 2:00 PM Veronica Curran RN Best Verbal Response 5 11/08/2025 2:00 PM E Veronica Gray RN [place] Coma Scale Score 12 11/08/2025 2:00 PM Veronica Smith RN * Skeletal Traction Question Answer Date of Assessment Author Skeletal Traction No 11/08/2025 2:00 PM Veronica Smith RN * Traction Question Answer Date of Assessment Author Cervical Traction No 11/08/2025 2:00 PM Veronica Smith RN Tomas's Traction No 11/08/2025 2:00 PM EST Veronica Portillo RN * External Fixators Question Answer Date of Assessment Author Extremity External Fixator No 11/08/2025 2:0 0 PM Veronica Smtih RN * IV Assessment Information Question Answer Date of Assessment Author IV Assessment Information Shift Assessment 11/08/2025 2:00 PM Veronica Smith RN * Wound Assessment Information Question Answer Date of Assessment Author Wound Assessment Information Shift Assessment 11/07/2025 11:00 AM Veronica Smith RN * I&O Assessment Information Question Answer Date of Assessment Author I&O Assessment Information Shift Assessment 11/08/2025 2:00 PM Veronica Smith RN * Body Composition Question Answer Date of Assessment Author Weight Change (lbs) 0 11/05/2025 10:45 AM Rekha Juarez, SILVIO * Patient Admission Handbook Question Answer Date of Assessment Author Patient handbook provided an d reviewed? No 11/02/2025 6:13 PM Myles Carrera RN * Case Status Question Answer Date of Assessment Author Case Status Discharge ready 11/08/2025 1:03 PM EST Maddie Kenny, RURAL CARRIER ASSOCIATE, LINK WIRE FABRIC MACHINE TENDER * Assessment Information Question Answer Date of Assessment Author Assessment Information Shift Assessment 11/08/2025 2:0 0 PM Veronica Smith RN * MEWS Score Question Answer Date of Assessment Author MEWS Score 1 11/08/2025 5:00 PM EST Sophie Martínez * Total Workload Score Answer Date of Assessment Author 54.81 11/08/2025 5:15 PM EST Sophie Edge * P.O. Intake Question Answer Date of Assessment Author P.O. 500 11/08/2025 2:00 PM Veronica Duron RN Percent Meals Eaten (%) 100 11/08/2025 2:00 PM Veronica Smith RN Diet Type Oral diet as ordered 11/08/2025 2:00 PM E Veronica Gray RN Feeding Able to feed self 11/08/2025 2:00 PM Veronica Smith RN Appetite Good 11/06/2025 7:21 PM EST Mercy Mendoza * Sepsis Risk Score Question Answer Date of Assessment Author Sepsis Risk Score 5.5 11/08/2025 5:[address] Edge, Sophie * Post Acute Care Treatment Preferences Question Answer Date of Assessment Author Treatment Preferences Distance 11/08/2025 1:07 PM EST Maddie Jeter, RURAL CARRIER ASSOCIATE, LINK WIRE FABRIC MACHINE TENDER * Anthropometrics Question Answer Date of Assessment Author BMI (Calculated) 27.4 11/05/2025 10:45 AM Rekha Corrigan RN * POSS - for High Risk Patients Answer Date of Assessment Author 1 11/07/2025 10:21 PM Jonathan Marcial RN * Height Percent Change Answer Date of Assessment Author 0 11/05/2025 10:45 AM Rekha Corrigan RN * Interventions Question Answer Date of Assessment Author Date of Service [id number] 11/07/2025 12:59 PM Citllay Potter RN Time Spent with Patient (minutes) 30 11/07/2025 12:59 PM Citlaly Potter RN Role RN Care Coordination 11/07/2025 12:59 PM Citlaly Potter RN Interventions Discharge Planning 11/07/2025 12 :59 PM Citlaly Potter RN * HIDDEN-Infusion Dashboard Answer Date of Assessment Author 133 11/08/2025 12:32 PM Enriqueta Fuchs * Home medication infusion pump Question Answer Date of Assessment Author Does patient have a home medication infusion pump? No 11/02/2025 6:15 PM Scott Carrera RN * Diabetes Survey Questions Question Answer Date of Assessment Author Do you have Diabetes? No 11/02/2025 6:15 PM EST Myles Albarran RN * Epic Fall Predictive Model (EFPM) Score Answer Date of Assessment Author 66.3 11/08/2025 4:01 PM EST Batch Job , Background User * Fall Risk Question Answer Date of Assessment Author Fall Risk Precautions In Place [place] 11/08/2025 2:45 PM Veronica Smith RN Other reasons for High Fall Precautions Clinical Judgement 11/08/2025 2:45 PM Veronica Smith RN * Urine Output/Observations Question Answer Date of Assessment Author Urine 0 11/08/2025 7:20 AM Chelsea Fuchs Urine Source Urethra 11/08/2025 12:32 PM EST Chelsea Olson Urine Occurrence 1 11/08/2025 12:32 PM Chelsea Fuchs Urinary Incontinence No 11/08/2025 12:32 PM Chelsea Fuchs * Stool Output/Observations Question Answer Date of Assessment Author Stool Occurrence 1 11/08/2025 12:32 PM Chelsea Fuchs Stool 1 11/07/2025 9:11 AM EST Veronica Kebede RN Stool Source Rectum 11/08/2025 12:32 PM EST Chelsea Olson Bowel Incontinence No 11/08/2025 12:32 PM Chelsea Bunn * Output Activities Question Answer Date of Assessment Author Cyndi-care No 11/03/2025 7:30 PM EST Mariza Craven RN Distance Ambulated (ft) 20 11/04/2025 9:00 A M Jolene Lawson RN * Other Output Question Answer Date of Assessment Author Emesis 0 11/04/2025 9:00 AM Jolene Lawson RN Est Blood Loss 0 11/04/2025 9:00 AM Jolene Sigala RN Emesis Occurrence 0 11/04/2025 9:00 AM Jolene Lawson RN Blood 0 11/04/2025 9:00 AM Jolene Lawson RN * Agitation Risk Factor Scoring Tool Question Answer Date of Assessment Author Hx of Aggression 0 11/08/2025 6:01 AM EST B atch Job, Background User Hx of Bipolar Disorder 0 11/08/2025 6:01 AM EST Batch Job, Background User Hx of Dementia 0 11/08/2025 6:01 AM EST Bat ch Job, Background User Positive Drug Screen in Past 180 Days 0 11/08/2025 6:01 AM EST Batch Job, Backgr ound User Positive Drug Screen 0 11/08/2025 6:[address] Batch Job, Background User ED LOS >24H 0 11/08/2025 6:01 AM EST Batch Job, Background User Means of Arrival- Escorted by Police 0 11/08/2025 6:01 AM EST Batch Job, Backgr ound User Previous AMA 0 11/08/2025 6:01 AM EST Batch Job, Background User Hx of Violent Restraint or Seclusion 0 11/08/2025 6:01 AM EST Batch Job, Backgr ound User Chief Complaint- Altered Mental Status 0 11/08/2025 6:01 AM EST Batch Job, Backgr ound User Blood Alcohol > Legal Limit 0 11/08/2025 6: 01 AM EST Batch Job, Background User Agitation Risk Factors Total Score 0 11/08/2025 6:01 AM EST Batch Job, Backgr ound User * STAT RN Question Answer Date of Assessment Author Intervention USGIV 11/02/2025 10:41 PM Starla Rosario RN Disposition remain in current location 11/02/2025 10:41 PM Starla Rosario RN Total time spent with patient 10 11/03/2025 10:15 AM Kirk Smith RN Unit where visit occurred 8CCP 2024 10:15 AM Kirk Smith RN Reason for visit Elevated eCART score 11/03/2025 10:15 AM Kirk Smith, RN * Risk Category Answer Date of Assessment Author Average 11/08/2025 2:42 PM EST Interface , Doc Flowsheet In * Risk Score Answer Date of Assessment Author 50 11/08/2025 2:42 PM EST Interface , Doc Flowsheet In * Disposition Answer Date of Assessment Author Stable/Expected 11/05/2025 2:11 PM Sylvia Schmidt, SILVIO * eCART Comments Answer Date of Assessment Author VSS on RA, sitting up bedsid e. BP soft, pt asymptomatic. no complaints/issues rafael. AOx4 11/03/2025 10:30 AM Kirk Smith RN * Is infection likely? Answer Date of Assessment Author Unsure 11/05/2025 2:10 PM Sylvia Schmidt, SILVIO * Worried about this patient? Answer Date of Assessment Author No 11/05/2025 2:10 PM Sylvia Schmidt, SILVIO * Vital Signs Question Answer Date of Assessment Author Heart Rate Source Monitor 11/07/2025 5:00 PM Veronica Smith RN * Oxygen Therapy Question Answer Date of Assessment Author SpO2 Alarm Limit Low 90 11/05/2025 11:30 AM Cony Marquez RN SpO2 Alarm Limit High 100 11/05/2025 11:30 AM Cony Marquez RN Oximetry Probe Site Changed No 11/05/2025 12:58 PM Kenna Chu RN Pulse Oximetry Type Continuous 11/05/2025 11:30 AM E Cony Max RN * Patient Observation Question Answer Date of Assessment Author Patient Observations Pt VSS, with p t, site C/D/I 11/05/2025 1:18 PM Kenna Chu RN * Gastrointestinal Question Answer Date of Assessment Author Last BM Date [id number] 11/08/2025 2:00 PM Veronica Duron RN Passing Flatus Yes 11/08/2025 2:00 PM Veronica Lundberg RN Palpation/Percussion Soft;No guarding 11/08/2025 2:00 PM Veronica Smith RN Bowel Sounds (All Quadrants) Active 11/08/2025 2 :00 PM Veronica Smith RN Gastrointestinal (WDL) WDL 11/08/2025 2:00 PM Veronica Smith RN Abdomen Inspection Soft;Rounded 11/08/2025 2:00 PM Veronica Smith RN GI Symptoms None 11/08/2025 2:00 PM Veronica Duron RN * Peripheral Vascular Question Answer Date of Assessment Author Peripheral Vascular (WDL) WDL 11/08/2025 2:00 PM Veronica Smith RN * Musculoskeletal Question Answer Date of Assessment Author RUE Full movement 11/08/2025 2:00 PM Veronica Garcia RN RLE Full movement 11/08/2025 2:00 PM Veronica Garcia RN LUE Full movement 11/08/2025 2:00 PM Veronica Garcia RN LLE Full movement 11/08/2025 2:00 PM EST Veronica Patel RN * Urine Assessment Question Answer Date of Assessment Author Urine Color Yellow/straw 11/07/2025 8:01 PM EST Jonathan Lucia RN Urine Appearance Clear 11/07/2025 8:01 PM Jonathan Grayson RN Urine Odor No odor 11/07/2025 8:01 PM Jonathan Yeboah RN * Anus/Rectum Question Answer Date of Assessment Author Anus/Rectum (WDL) WDL 11/08/2025 2:00 PM Veronica Smith RN * Psychosocial Question Answer Date of Assessment Author Patient Behaviors/Mood Calm;Cooperative 11/07/2025 8:0 1 PM Jonathan Candelario RN Family Behaviors Calm 11/07/2025 8:01 PM Jonathan Grayson RN Visitor Behaviors Appropriate for situation 11/07/2025 8:01 PM Jonathan Candelario RN Needs Expressed Physical 11/07/2025 8:01 PM Jonathan Chopra RN Rest/Sleep for Family Fair 11/07/2025 8:01 PM Jonathan Candelario RN Rest/Sleep for Patient Fair 11/07/2025 8:01 PM Jonathan Candelario RN * Garcia Fall Risk Question Answer Date of Assessment Author History of Falling 0 11/08/2025 2:00 PM Veronica Smith RN Secondary Diagnosis 15 11/08/2025 2:00 PM Veronica Curran RN Ambulatory Aids 0 11/08/2025 2:00 PM EST Veronica Portillo RN Intravenous Therapy/Heparin/ Saline Lock 20 11/08/2025 2:00 PM Veronica Smith RN Gait/Transferring 0 11/08/2025 2:00 PM Veronica Smith RN Mental Status 0 11/08/2025 2:00 PM Veronica Garcia RN Garcia Fall Risk Score 35 11/08/2025 2:00 PM Veronica Smith RN * Sky Scale Question Answer Date of Assessment Author Sensory Perceptions 4 11/08/2025 2:00 PM Veronica Curran RN Moisture 4 11/08/2025 2:00 PM Veronica Duron RN Activity 4 11/08/2025 2:00 PM Veronica Duron RN Mobility 4 11/08/2025 2:00 PM Veronica Duron RN Nutrition 4 11/08/2025 2:00 PM Veronica Duron RN Friction and Shear 3 11/08/2025 2:00 PM Veronica Smith RN Sky Scale Score 23 11/08/2025 2:00 PM Veronica Smith RN * Cough Answer Date of Assessment Author None 11/06/2025 6:30 PM Bj Gutierrez RN * Cardiac Question Answer Date of Assessment Author Cardiac (WDL) WDL 11/08/2025 2:00 PM Veronica Garcia RN Telemetry/Taker Off Drying Kiln No 11/08/2025 2:00 PM Veronica Smith RN * Respiratory Question Answer Date of Assessment Author Bilateral Breath Sounds Clear;Diminished 11/08/2025 2: 00 PM Veronica Smith RN R Breath Sounds Clear;Diminished 11/07/2025 8:01 PM Jonathan Martin RN L Breath Sounds Clear;Diminished 11/07/2025 8:01 PM Jonathan Martin RN Respiratory Pattern Regular;Easy;Unlabored 11/08/2025 2:00 PM Veronica Smith RN Chest Assessment Chest expansion symmetrical 11/08/2025 2:00 PM Veronica Smith RN Respiratory Additional Assessments No 11/07/2025 8:01 PM Jonathan Candelario RN * Respiratory (WDL) Answer Date of Assessment Author WDL 11/08/2025 2:00 PM Veronica Smith RN * Vitals Question Answer Date of Assessment Author BP 133/59 11/08/2025 12:32 PM EST Chelsea Olson Temp 98.8 11/08/2025 12:32 PM EST Chelsea Olson Pulse 67 11/08/2025 12:32 PM EST Chelsea Olson SpO2 96 11/08/2025 12:32 PM EST Chelsea Olson O2 Flow Rate (L/min) 0 11/05/2025 4:09 PM E Tamar Smith O2 Device None (Room air) 11/08/2025 12:32 PM EST Chelesa Flannery * Height and Weight Question Answer Date of Assessment Author Percent Weight Change Since 0 11/05/2025 10:45 AM Rekha Corrigan RN * Blood Glucose Meter Prelim Answer Date of Assessment Author 310 11/08/2025 1:10 PM Veronica Smith RN * Advance Directives (For Healthcare) Question Answer Date of Assessment Author Advance Directive Patient has advance directive, copy in chart 11/02/2025 6:13 PM Myles Carrera RN Healthcare Agent Appointed No 11/02/2025 6:13 PM Myles Carrera RN Pre-existing DNR/DNI Order No 11/02/2025 6:13 PM Myles Carrera RN Patient Requests Assistance Other (Comment) 11/02/2025 6:13 PM Myles Carrera RN * Discharge Planning Question Answer Date of Assessment Author Who does patient live with? Spouse/significant other 11/02/2025 6:18 PM Myles Carrera RN Support Systems Spouse/significant other;Family members 11/02/2025 6:18 PM Myles Carrera RN Type of Residence Private residence 11/02/2025 6 :18 PM Myles Carrera RN In the past 12 months has the electric, gas, oil, or water company threatened to shut off services in your home? No 11/02/2025 6:18 PM Myles Carrera RN In the last 12 months, was there a time when you were not able to pay the mortgage or rent on time? No 11/02/2025 6:18 PM Myles Carrera RN In the past 12 months, how many times have you moved where you were living? 0 11/02/2025 6:18 PM Myles Carrera RN At any time in the past 12 months, were you homeless or living in a mcfp (including now)? No 11/02/2025 6:18 PM Myles Carrera RN In the past 12 months, has lack of transportation kept you from medical appointments or from getting medications? No 11/02/2025 6:18 PM Myles Carrera RN In the past 12 months, has lack of transportation kept you from meetings, work, or from getting things needed for daily living? No 11/02/2025 6:18 PM Myles Carrera RN * Nutrition Screen Question Answer Date of Assessment Author Diabetic Education Needed 2 11/02/2025 6:19 PM Myles Carrera RN Unplanned Weight Gain in [facility] Three Months 2 11/02/2025 6:19 PM Myles Carrera RN Unplanned Weight Loss in [facility] Three Months 2 11/02/2025 6:19 PM Myles Carrera RN Poor Oral Intake for Four or More Days Prior to Admission 1 11/02/2025 6:19 PM Myles Carrera RN Difficulty Chewing or Swallowing 2 11/02/2025 6:19 PM Myles Carrera RN Pressure Ulcer or Non-Healin g Wound 2 11/02/2025 6:19 PM Myles Carrera RN Home Tube Feeding or Total Parenteral Nutrition (TPN) 2 11/02/2025 6:[address] maicol Carrera RN Dietitian Consult Needed 2 11/02/2025 6:19 PM Myles Carrera RN Vomiting/Diarrhea/Nausea Greater Than 3 Days 1 11/02/2025 6:19 PM Myles Carrera RN Within the past 12 months, y ou worried that your food would run out before you got the money to buy more. Never true 11/02/2025 6:19 PM Myles Carrera RN Within the past 12 months, t he food you bought just didn't last and you didn't have money to get more. Never true 11/02/2025 6:19 PM Myles Carrera RN * Scale Used Answer Date of Assessment Author Verbal scale (0-10) 11/05/2025 10:45 AM Rekha Santiago ra, RN * Abuse/Trauma History Question Answer Date of Assessment Author Exploitation Denies 11/04/2025 9:32 AM Kenna Estevez RN Physical Abuse Denies 11/02/2025 6:00 PM Myles Cope RN Verbal Abuse Denies 11/02/2025 6:00 PM Myles To RN Sexual Abuse No 11/02/2025 6:00 PM Myles To RN Neglect Denies 11/02/2025 6:00 PM Myles To RN * Values / Beliefs Question Answer Date of Assessment Author Cultural Requests During Hospitalization No 11/04/2025 9:32 AM Kenna Chu RN Spiritual Requests During Hospitalization No 11/04/2025 9:32 AM Kenna Chu RN * Stool Assessment Question Answer Date of Assessment Author Stool consistency: [place] Stool Chart Type 7: Watery, no solid pieces, entirely liquid 11/04/2025 9:00 AM EST Jolene Bell RN Stool Color YADIRA 11/07/2025 8:01 PM Jonathan Yeboah RN Stool Amount YADIRA 11/07/2025 8:01 PM EST Jonathan Lucia RN Stool Appearance YADIRA 11/07/2025 8:01 PM EST Jonathan Regan RN * Genitourinary Question Answer Date of Assessment Author Genitourinary (WDL) WDL 11/08/2025 2:00 PM Veronica Curran RN * Neurological Question Answer Date of Assessment Author Neuro (WD) WD 11/08/2025 2:00 PM Veronica Duron RN Neuro Additional Assessments [place] Coma Scale 11/08/2025 2:00 PM Veronica Smith RN * Patient Belongings Question Answer Date of Assessment Author Does The Patient Have Belongings Yes 11/02/20 6:25 PM EST Myles Albarran RN * Safe Environment Question Answer Date of Assessment Author Patient Monitor N/A 11/05/2025 9:57 PM EST Erica Tillman RN Safety Equipment at Bedside None 11/04/2025 9: 00 AM Jolene Lawson RN * Mobility Question Answer Date of Assessment Author Activity Lying in bed 11/08/2025 2:00 PM Veronica Duron RN Ambulation Response Tolerated well 11/04/2025 11:20 PM Mariza Pastor RN Assistive Device None 11/08/2025 2:00 PM Veronica Bar RN Transport Method Wheelchair 11/05/2025 9:57 PM Erica Blanton RN Level of Assistance Independent 11/08/2025 2:00 PM Veronica Curran RN Head of Bed Self regulated 11/08/2025 2:00 PM Veronica Lundberg RN * Hygiene Question Answer Date of Assessment Author Bath/Shower Patient Declined 11/06/2025 7:25 AM Starla Maravilla Level of Assistance Independent 11/06/2025 6:30 PM Bj Fitzpatrick, SILVIO CHG Hygiene Wipes 11/04/2025 9:00 AM Jolene Lawson RN * Precautions Question Answer Date of Assessment Author Precautions None 11/05/2025 9:57 PM Erica Woodard, SILVIO * Family/Significant Other Communication Question Answer Date of Assessment Author Overnight Visitors Yes - Guidelines Discussed 11/05/2025 9:57 PM Erica Woodard RN Family/Support Person Visiting 11/05/2025 9:57 PM Erica Woodrad RN * Continuous Passive Motion Question Answer Date of Assessment Author CPM No 11/04/2025 9:00 AM Jolene Lawson RN * Comfort and Environment Interventions Question Answer Date of Assessment Author Comfort Repositioned 11/05/2025 9:57 PM Erica Woodard, SILVIO * Entertainment Question Answer Date of Assessment Author Entertainment Activities Television 11/05/2025 9:57 PM Erica Woodard RN * Pre-Transfusion Documentation Question Answer Date of Assessment Author Informed Consent Obtained Yes 11/03/2025 10:45 PM Garima Pastor RN Pre-Meds Given? No pre-meds ordered 11/03/2025 10:45 P M Mariza Pastor RN * Adult IBW/VT Calculations Question Answer Date of Assessment Author Low Range Vt 4 mL MALE 264.4 11/05/2025 10:45 A M Rekha Corrigan RN Low Range Vt 4 mL FEMALE 246.4 11/05/2025 10:45 AM Rekha Corrigan RN IBW/kg (Calculated) Male 66.1 11/05/2025 10:45 AM Rekha Corrigan RN Low Range Vt 6 mL MALE 396.6 11/05/2025 10:45 A M Rekha Corrigan RN Moderate Range Vt 8 mL MALE 528.8 11/05/2025 10 :45 AM Rekha Corrigan RN High Range Vt 10 mL MALE 661 11/05/2025 10:45 AM Rekha Corrigan RN IBW/kg (Calculated) FEMALE 61.6 11/05/2025 10: 45 AM Rekha Corrigan RN Low Range Vt 6 mL FEMALE 369.6 11/05/2025 10:45 AM Rekha Corrigan RN Moderate Range Vt 8 mL FEMALE 492.8 11/05/2025 10:45 AM Rekha Corrigan RN High Range Vt 10 mL FEMALE 616 11/05/2025 10: 45 AM Rekha Corrigan RN * ADL Screening Question Answer Date of Assessment Author Is this person blind or does he/she have serious difficulty seeing even when wearing glasses? No 11/02/2025 6:10 PM Myles Carrera RN Is this person deaf or does he/she have serious difficulty hearing? No 11/02/2025 6:10 PM Myles Carrera RN Does this person have seriou s difficulty walking or climbing stairs? (5 years old or older) No 11/02/2025 6:10 PM Myles Carrera RN Does this person have difficulty dressing or bathing? (5 years old or older) No 11/02/2025 6:10 PM Myles Carrera RN Because of a physical, mental, or emotional condition, do you have serious difficulty concentrating, remembering, or making decisions? (5 years old or older No 11/02/2025 6:10 PM Myles Carrera RN Because of a physical, mental, or emotional condition, do you have difficulty doing errands alone such as visiting a doctor's office or shopping? (15 years old or older) No 11/02/2025 6:10 PM Fidencio Carrera RN Is this person able to express their needs and desires? Yes 11/02/2025 6:10 PM Myles Carrera RN Patient's Vision Adequate to Safely Complete Daily Activities 1 11/02/2025 6:10 PM Myles Carrera RN Patient's Judgement Adequate to Safely Complete Daily Activities 1 11/02/2025 6:10 PM Myles Carrera RN Patient's Memory Adequate to Safely Complete Daily Activities 1 11/02/2025 6:10 PM Myles Carrera RN Patient Able to Express Needs/Desires 1 11/02/2025 6:10 PM Myles Carrera RN Dressing Independent 11/02/2025 6:10 PM Myles To RN Grooming Independent 11/02/2025 6:10 PM Myles To RN Feeding Independent 11/02/2025 6:10 PM Myles To RN Bathing Independent 11/02/2025 6:10 PM Myles To RN Toileting Independent 11/02/2025 6:10 PM Myles To RN In/Out Bed Independent 11/02/2025 6:10 PM Myles To RN Walks in Home Independent 11/02/2025 6:10 PM Myles Phoenix, RN Weakness of Legs Both 11/02/2025 6:10 PM Myles Gonsalez, SILVIO Weakness of Arms/Hands None 11/02/2025 6:10 PM Myles Carrera RN Hearing - Right Ear Hearing aid 11/02/2025 6:10 PM Myles Sanchez RN Hearing - Left Ear Hearing aid 11/02/2025 6:10 PM Myles Carrera RN * Consults Question Answer Date of Assessment Author Spiritual Care Consult Needed No 11/04/2025 9:32 AM Kenna Chu RN Social Services Consult Needed No 11/04/2025 9:32 AM Kenna Chu RN * Height and Weight Question Answer Date of Assessment Author Height 67 11/05/2025 10:45 AM Rekha Santiago ra, RN Weight 2800 11/05/2025 10:45 AM Rekha Santiago ra, RN BSA (Calculated - sq m) 1.94 11/05/2025 10:45 AM Rekha Corrigan RN * NPO Question Answer Date of Assessment Author Time of last liquid 53365 11/04/2025 9:14 AM Kenna Laura RN Date of last liquid 84297 11/05/2025 10:46 AM Rekha Juarez RN Date of last solid 48817 11/05/2025 10:46 AM Rekha Cuenca RN * Cipriano Score Answer Date of Assessment Author 10 11/05/2025 1:18 PM Kenna Chu RN * Vital Signs Question Answer Date of Assessment Author Heart Rhythm SR 11/04/2025 12:00 PM Kenna Cabezas RN * [place]-Suicide Severity Rating Scale (C-SSR) Part 1 Question Answer Date of Assessment Author In the past month, have you wished you were or wished you could go to sleep and not wake up? No 11/02/2025 6:14 PM Myles Carrera RN In the past month, have you actually had any thoughts of killing yourself? No 11/02/2025 6:14 PM Myles Carrera RN * [place]-Suicide Severity Rating Scale (C-SSR) Part 2 Question Answer Date of Assessment Author Have you ever done anything, started to do anything, or prepared to do anything to end your life? No 11/02/2025 6:14 PM Myles Carrera RN * Rating Scale Answer Date of Assessment Author LOW RISK 11/02/2025 6:14 PM Alyssa Carrera RN * UCH RISK OF UNPLANNED READMISSION Answer Date of Assessment Author 86 11/08/2025 5:43 PM Wicho Restrepo * Influenza Vaccine Screen - August through January Question Answer Date of Assessment Author Have you had an influenza vaccine this season? No 11/04/2025 9:07 AM Kenna Chu RN Influenza Vaccine Indicated? No, because patient declined 11/02/2025 6:00 PM Myles Carrera RN * AUDIT-C Score Answer Date of Assessment Author 0 11/02/2025 6:14 PM Alyssa Carrera RN * Intimate Partner Violence Question Answer Date of Assessment Author Within the last year, have y ou been humiliated or emotionally abused in other ways by your partner or ex-partner? No 11/05/2025 10:41 AM Franny Corrigan RN Within the last year, have y ou been afraid of your partner or ex-partner? No 11/05/2025 10:41 AM Rekha Corrigan RN Within the last year, have y ou been raped or forced to have any kind of sexual activity by your partner or ex-partner? No 11/05/2025 10:41 AM Rekha Corrigan RN Within the last year, have y ou been kicked, hit, slapped, or otherwise physically hurt by your partner or ex-partner? No 11/05/2025 10:41 AM Rekha Corrigan RN * Alcohol Use Question Answer Date of Assessment Author Q1: How often do you have a drink containing alcohol? Never 11/02/2025 6:14 PM Myles Carrera RN Q2: How many drinks containing alcohol do you have on a typical day when you are drinking? Patient does not drink 11/02/2025 6:14 PM Myles Carrera RN Q3: How often do you have six or more drinks on one occasion? Never 11/02/2025 6:14 PM Myles Carrera RN * Specimen Collection Status Question Answer Date of Assessment Author Specimen Collection Lab 11/08/2025 2:00 PM Veronica Curran RN * Temp (in Celsius) Answer Date of Assessment Author 37.1 11/08/2025 12:32 PM Enriqueta Fuchs * Comprehensive Pain Assessment (with every routine assessment) Question Answer Date of Assessment Author Pain Location Abdomen 11/07/2025 9:21 PM Jonathan Candelario RN Pain Orientation Mid;Lower 11/07/2025 9:21 PM Jonathan Candelario RN Pain Intervention(s) Medication (See eMAR) 11/07 9:21 PM Jonathan Candelario RN Pain Descriptors Aching;Discomfort 11/07/2025 9: 21 PM Jonathan Candelario RN Pain Frequency Intermittent 11/07/2025 9:21 PM Jonathan Candelario RN Patient's Stated Pain Goal No pain 11/08/2025 2:00 PM Veronica Smith RN Multiple Pain Sites No 11/07/2025 9 :21 PM Jonathan Candelario RN Pain Type Surgical pain;Acute pain 025 9:21 PM Jonathan Candelario RN * Pantoprazole Question Answer Date of Assessment Author Volume (mL) Pantoprazole 50 11/07/2025 6:16 PM Veronica Smith RN * Integumentary Question Answer Date of Assessment Author Skin Color Appropriate for ethnicity 11/08/2025 2:00 PM Veronica Smith RN Skin Condition/Temp Warm;Dry 11/08/2025 2:00 PM Veronica Curran RN Skin Integrity Intact 11/08/2025 2:00 PM Veronica Lundberg RN Skin Turgor Non-tenting 11/07/2025 8:01 PM Jonathan Yeboah RN Integumentary (WDL) WDL 11/08/2025 2:00 PM Veronica Curran RN Skin Location abd 11/08/2025 2:00 PM Veronica Garcia RN * Core Measure Documentation Question Answer Date of Assessment Author Was the Influenza Vaccine Screening Completed? Yes 11/08/2025 2:40 PM Veronica Smith RN Was the influenza vaccine ordered? No 2024 2:40 PM Veronica Smith RN * Is This a Core Measure Patient? Question Answer Date of Assessment Author Is this a myocardial infarct ion patient? No 11/08/2025 2:40 PM Veronica Smith RN * Discharge Planning Question Answer Date of Assessment Author Discharge Disposition Home with Home Care 11/08/2025 1 :07 PM Maddie Burns MSW, LSW * Transportation Information Question Answer Date of Assessment Author Transfer Mode/Level of Care Family 11/08/2025 1: 07 PM Maddie Burns MSW, LSW * Patient/Family Involvement Question Answer Date of Assessment Author Core Measure-If this is a stroke patient and Rehab Services were recommended did the patient refuse? No 11/08/2025 1:07 PM Maddie Burns MSW LINK WIRE FABRIC MACHINE TENDER SW/CM Name and phone # Primoamado TONYA Roberts [phone] 11/08/2025 1:07 PM Maddie Burns MSW, LINK WIRE FABRIC MACHINE TENDER Family Member Notified at Discharge Yes 11/08/2025 1:07 PM Maddie Burns MSW, TONYA Family Member Name and Relationship Notified at Discharge Stacy Serrano-spouse 11/08/2025 1:07 PM EST Maddie eJter, RURAL CARRIER ASSOCIATE, LINK WIRE FABRIC MACHINE TENDER Family Contact Number [phone] 11/08/2025 1:07 PM EST Steffany, Tsrichardorah, RURAL CARRIER ASSOCIATE, LINK WIRE FABRIC MACHINE TENDER Role of the Primary Teaching Assistant Explained Yes 11/08/2025 1:07 PM EST Steffany, Tsipporah, RURAL CARRIER ASSOCIATE, LINK WIRE FABRIC MACHINE TENDER Role of the Economic Consultant Explained Yes 11/08/2025 1:07 PM EST Steffany, Tsipporah, RURAL CARRIER ASSOCIATE, LINK WIRE FABRIC MACHINE TENDER Patient/Family Informed of Discharge Plan Yes 11/08/2025 1:07 PM EST Steffany, Tsipporah, RURAL CARRIER ASSOCIATE, LINK WIRE FABRIC MACHINE TENDER Plan Reviewed With Patient, Family, or Significant Other Yes 11/08/2025 1:07 PM EST Steffany, Tsipporah, RURAL CARRIER ASSOCIATE, LINK WIRE FABRIC MACHINE TENDER Patient or family are unable or unavailable to participate in patient's discharge plan No 11/08/2025 1:07 PM EST Steffany, Tsipporah, RURAL CARRIER ASSOCIATE, LINK WIRE FABRIC MACHINE TENDER Patient and or family are aware and in agreement with the discharge plan Yes 11/08/2025 1:07 PM EST Steffany, Tsipporah, RURAL CARRIER ASSOCIATE, LINK WIRE FABRIC MACHINE TENDER Plan reviewed with MD and other members of the health care team Yes 11/08/2025 1:07 PM EST Steffany, Tsipporah, RURAL CARRIER ASSOCIATE, LINK WIRE FABRIC MACHINE TENDER Care Plan Completed Yes 11/08/2025 1:07 PM ES Trina Jeter, Tsipporah, RURAL CARRIER ASSOCIATE, LINK WIRE FABRIC MACHINE TENDER * LACE+ Score Answer Date of Assessment Author 79 11/08/2025 5:43 PM Wicho Restrepo * Pain Score Answer Date of Assessment Author 5 11/08/2025 5:09 PM Veronica Smith, SILVIO * P.O. Intake Question Answer Date of Assessment Author Percent Meals Eaten (%) 100 11/08/2025 2:00 P M Veronica Smith, SILVIO * Patient's Post-Discharge Goals Question Answer Date of Assessment Author Patient's Post-Discharge goals Get stronger at home 11/08/2025 1:07 PM ULISES Steffany, Tsrichardorah, RURAL CARRIER ASSOCIATE, LINK WIRE FABRIC MACHINE TENDER * Calculated Energy Needs Question Answer Date of Assessment Author Мария Jett Equation (RMR) 1,542.42 11/05/2025 10:45 AM Rekha Corrigan RN Fluid Requirements (mL) 2,381.37 11/05/2025 10:45 AM Rekha Corrigan, SILVIO * Anthropometrics Question Answer Date of Assessment Author BMI (Calculated) 27.4 11/05/2025 10:45 AM Rekha Corrigan, SILVIO * Community Services at Discharge Question Answer Date of Assessment Author Home Health Care Name/Phone # [facility] [phone] 11/08/2025 1:07 PM EST Steffany, Tsrichardorah, RURAL CARRIER ASSOCIATE, LINK WIRE FABRIC MACHINE TENDER Home Health Services Types at Discharge PT/OT/BILINGUAL ACCOUNT MANAGER;Usp 11/08/2025 1:07 PM ULISES Jeter, Jackieh, RURAL CARRIER ASSOCIATE, LINK WIRE FABRIC MACHINE TENDER Community Services at Home post discharge Home Health Care 11/08/2025 1:07 PM ULISES Jeter, Primoora h, RURAL CARRIER ASSOCIATE, LINK WIRE FABRIC MACHINE TENDER Home Health Services agency list provided No, patient would like to continue services with previous provider 11/08/2025 1:07 PM ULISES Jeter, Primoorah, RURAL CARRIER ASSOCIATE, LINK WIRE FABRIC MACHINE TENDER * Facial Expression Answer Date of Assessment Author 0 11/05/2025 3:32 PM Sylvia Schmidt, SILVIO * Compliance with the Ventilator (Intubated Patients) Answer Date of Assessment Author 00 11/05/2025 3:32 PM Sylvia Schmidt RN * Urine Output/Observations Question Answer Date of Assessment Author Urine Occurrence 1 11/08/2025 12:32 PM Chelsea Fuchs * Stool Output/Observations Question Answer Date of Assessment Author Stool Occurrence 1 11/08/2025 12:32 PM Chelsea Fuchs * Output Activities Question Answer Date of Assessment Author Distance Ambulated (ft) 20 11/04/2025 9:00 A M Jolene Lawson, SILVIO * AM-PAC Mobility Question Answer Date of Assessment Author Help Turning From Back to Si de While Flat in Bed Without Using Siderails 4 11/08/2025 2:00 PM Veronica Smith, SILVIO Help Moving From Lying On Ba ck To Sitting Without Using Siderails 4 11/08/2025 2:00 PM Veronica Duron RN Help Moving To And From Bed To Chair 4 11/08/2025 2:00 PM Veronica Smith RN Help Standing Up From Chair Using Your Arms 4 11/08/2025 2:00 PM Veronica Smith RN Help To Walk In Hospital Room 4 11/08/2025 2:00 PM Veronica Smith RN Help Climbing 3-5 Steps With A Railing 4 11/08/2025 2:00 PM Veronica Smith RN AM-PAC Mobility Score 24 11/08/2025 2:00 PM Veronica Smith RN Translation to [facility] 8 11/08/2025 2:00 PM Veronica Smith RN * Mobility: AM-PAC/JH-HLM Question Answer Date of Assessment Author -[facility] Score - Performed/Achieved 7 Walks 25 feet or more 11/06/2025 6:30 PM Bj Gutierrez RN -HL Score - Performed/Achieved Goal (Y/N) No 11/04/2025 9:00 AM Jolene Lawson RN Early Mobility/Exercise Safety Screen (Med/Surg) Proceed with mobilization - No exclusion criteria met 11/06/2025 6:30 PM Bj Gutierrez RN Goal -HL 8 Walks 250 feet or more 11/06/2025 6:30 PM Bj Gutierrez RN * Gastrointestinal Question Answer Date of Assessment Author Last BM Date [id number] 11/08/2025 2:00 PM Veronica Duron RN * Musculoskeletal Question Answer Date of Assessment Author RUE Full movement 11/08/2025 2:00 PM Veronica Garcia RN RLE Full movement 11/08/2025 2:00 PM Veronica Garcia RN LUE Full movement 11/08/2025 2:00 PM Veronica Garcia RN LLE Full movement 11/08/2025 2:00 PM Veronica Garcia RN Musculoskeletal (WDL) WDL 11/08/2025 2:00 PM EST Veronica Winter RN Musculoskeletal Additional Assessments Yes 11/08/2025 2:00 PM EST Veronica Winter RN * Psychosocial Question Answer Date of Assessment Author Patient Behaviors/Mood Calm;Cooperative 11/07/2025 8:0 1 PM EST Jonathan Bazzi RN * Vitals Question Answer Date of Assessment Author BP 133/59 11/08/2025 12:32 PM EST Chelsea Olson * Nutrition Prognosis Question Answer Date of Assessment Author Follow-Up Date for Monitoring liver 11/02/2025 5:[address] * Discharge Planning Question Answer Date of Assessment Author Support Systems Spouse/significant other;Family members 11/02/2025 6:18 PM EST Myles Albarran RN * Mobility Question Answer Date of Assessment Author Activity Lying in bed 11/08/2025 2:00 PM Veronica Duron RN Ambulation Response Tolerated well 11/04/2025 11:20 PM Mariza Pastor RN Assistive Device None 11/08/2025 2:00 PM Veronica Bar RN Repositioned Turns self 11/08/2025 2:00 PM Veronica Duron RN Transport Method Wheelchair 11/05/2025 9:57 PM Erica Blanton RN Level of Assistance Independent 11/08/2025 2:00 PM VIVIAN T Veronica Winter RN Head of Bed Self regulated 11/08/2025 2:00 PM Veroniac Lundberg RN Heels/Feet Foot of bed elevated 11/08/2025 2:00 PM Veronica Serra RN Range of Motion Type Active 11/05/2025 9:57 PM Erica Kumar RN Positioning Frequency Able to turn self 11/08/2025 2:0 0 PM Veronica Smith RN Range of Motion Completed 11/05/2025 9:57 PM EST Erica Tillman RN * Hygiene Question Answer Date of Assessment Author Bath/Shower Patient Declined 11/06/2025 7:25 AM EST Starla Montero * Adult IBW/VT Calculations Question Answer Date of Assessment Author IBW/kg (Calculated) Male 66.1 11/05/2025 10:45 AM Rekha Corrigan RN IBW/kg (Calculated) FEMALE 61.6 11/05/2025 10: 45 AM Rekha Corrigan, SILVIO * ADL Screening Question Answer Date of Assessment Author Is this person blind or does he/she have serious difficulty seeing even when wearing glasses? No 11/02/2025 6:10 PM Myles Carrera RN Is this person deaf or does he/she have serious difficulty hearing? No 11/02/2025 6:10 PM Myles Carrera RN Does this person have seriou s difficulty walking or climbing stairs? (5 years old or older) No 11/02/2025 6:10 PM Myles Carrera RN Does this person have difficulty dressing or bathing? (5 years old or older) No 11/02/2025 6:10 PM Myles Carrera RN Because of a physical, mental, or emotional condition, do you have serious difficulty concentrating, remembering, or making decisions? (5 years old or older No 11/02/2025 6:10 PM Myles Carrera RN Because of a physical, mental, or emotional condition, do you have difficulty doing errands alone such as visiting a doctor's office or shopping? (15 years old or older) No 11/02/2025 6:10 PM Fidencio Carrera RN Is this person able to express their needs and desires? Yes 11/02/2025 6:10 PM Myles Carrera RN Patient's Vision Adequate to Safely Complete Daily Activities 1 11/02/2025 6:10 PM Myles Carrera RN Patient's Judgement Adequate to Safely Complete Daily Activities 1 11/02/2025 6:10 PM Myles Carrera RN Patient's Memory Adequate to Safely Complete Daily Activities 1 11/02/2025 6:10 PM Myles Carrera RN Patient Able to Express Needs/Desires 1 11/02/2025 6:10 PM Myles Carrera RN Dressing Independent 11/02/2025 6:10 PM Myles To RN Grooming Independent 11/02/2025 6:10 PM Myles To RN Feeding Independent 11/02/2025 6:10 PM Myles To RN Bathing Independent 11/02/2025 6:10 PM Myles To RN Toileting Independent 11/02/2025 6:10 PM Myles To RN In/Out Bed Independent 11/02/2025 6:10 PM Myles To RN Walks in Home Independent 11/02/2025 6:10 PM Myles Phoenix RN Weakness of Legs Both 11/02/2025 6:10 PM Myles Gonsalez RN Weakness of Arms/Hands None 11/02/2025 6:10 PM Myles Carrera RN Hearing - Right Ear Hearing aid 11/02/2025 6:10 PM Myles Sanchez RN Hearing - Left Ear Hearing aid 11/02/2025 6:10 PM Myles Carrera RN * Consults Question Answer Date of Assessment Author Spiritual Care Consult Needed No 11/04/2025 9:32 AM Kenna Chu RN * Therapy Consults Question Answer Date of Assessment Author PT Evaluation Needed 2 11/02/2025 6:26 PM Myles Mcdermott RN OT Evalulation Needed 2 11/02/2025 6:26 PM Myles Carrera RN BILINGUAL ACCOUNT MANAGER Evaluation Needed 2 11/02/2025 6:26 PM Myles Carrera RN * Assistive Devices Question Answer Date of Assessment Author Assistive Devices Eyeglasses;Walker 11/02/2025 6:12 PM Myles Carrera RN * Height and Weight Question Answer Date of Assessment Author Height 67 11/05/2025 10:45 AM Rekha Santiago ra, SILVIO Weight 2800 11/05/2025 10:45 AM Rekha Santiago ra, SILVIO BMI (Calculated) 27.5 11/05/2025 10:45 AM Rekha Corrigan, RN * NPO Question Answer Date of Assessment Author NPO Except for Medications Yes 11/05/2025 10: 46 AM Rekha Corrigan RN * [place]-Suicide Severity Rating Scale (C-SSR) Part 1 Question Answer Date of Assessment Author In the past month, have you wished you were or wished you could go to sleep and not wake up? No 11/02/2025 6:14 PM Myles Carrera RN In the past month, have you actually had any thoughts of killing yourself? No 11/02/2025 6:14 PM Myles Carrera RN * Suicide Risk Assessment Question Answer Date of Assessment Author Is Admission due to self harm? No 11/04/2025 9:33 AM Kenna Chu RN Is patient expressing suicid al ideations? No 11/04/2025 9:33 AM Kenna Chu RN * Re-Assessment NRS Pain Score Answer Date of Assessment Author 0 - No Pain 11/07/2025 10:21 PM Jonathan Marcial RN * Skip to questions 9-10? Answer Date of Assessment Author 1 11/02/2025 6:14 PM Alyssa Carrera RN * Anthropometrics Question Answer Date of Assessment Author Weight Change 0 11/05/2025 10:45 AM Rekha Ramon RN * Comprehensive Pain Assessment (with every routine assessment) Question Answer Date of Assessment Author Pain Location Abdomen 11/07/2025 9:21 PM Jonathan Candelario RN Pain Orientation Mid;Lower 11/07/2025 9:21 PM Jonathan Candelario RN Pain Intervention(s) Medication (See eMAR) 11/07 9:21 PM Jonathan Candelario RN Pain Descriptors Aching;Discomfort 11/07/2025 9: 21 PM Jonathan Candelario RN Pain Frequency Intermittent 11/07/2025 9:21 PM Jonathan Candelario RN Patient's Stated Pain Goal No pain 11/08/2025 2:00 PM Veronica Smith RN Multiple Pain Sites No 11/07/2025 9 :21 PM Jonathan Candelario RN Pain Type Surgical pain;Acute pain 025 9:21 PM Jonathan Candelario RN * Integumentary Question Answer Date of Assessment Author Skin Color Appropriate for ethnicity 11/08/2025 2:00 PM Veronica Smith RN Skin Condition/Temp Warm;Dry 11/08/2025 2:00 PM Veronica Curran RN Skin Integrity Intact 11/08/2025 2:00 PM Veronica Lundberg RN Skin Location abd 11/08/2025 2:00 PM Veronica Garcia RN documented as of this encounter Mental Status * Cody Agitation Sedation Scale Question Answer Entry Date Author Cody Agitation Sedation Scale -3 11/05/2025 11:30 AM Cony Marquez RN * Vital Signs-Intra Procedure Question Answer Entry Date Author ETCO2 33 11/05/2025 11:30 AM EST Cony Castillo RN Cardiac Rhythm NSR 11/05/2025 11:30 AM EST Cony Briscoe RN * [place] Coma Scale Question Answer Entry Date Author Eye Opening 1 11/08/2025 2:00 PM Veronica Duron RN Best Motor Response 6 11/08/2025 2:00 PM Veronica Curran RN Best Verbal Response 5 11/08/2025 2:00 PM Veronica Serra RN [place] Coma Scale Score 12 11/08/2025 2:00 PM Veronica Smith RN * Psychosocial Question Answer Entry Date Author Patient Behaviors/Mood Calm;Cooperative 11/07/2025 8:0 1 PM Jonathan Candelario RN * Vitals Question Answer Entry Date Author BP 133/59 11/08/2025 12:32 PM EST Chelsea Olson Pulse 67 11/08/2025 12:32 PM EST Chelsea Olson Resp 17 11/08/2025 12:32 PM EST Chelsea Olson SpO2 96 11/08/2025 12:32 PM EST Chelsea Olson O2 Flow Rate (L/min) 0 11/05/2025 4:09 PM E Tamar Smith * Neurological Question Answer Entry Date Author Neuro (WDL) WDL 11/08/2025 2:00 PM EST Veronica Kebede RN * Comprehensive Pain Assessment (with every routine assessment) Question Answer Entry Date Author Sedation Level Score 2 11/07/2025 9:21 PM EST Jonathan Bazzi RN Pain Assessment NRS Pain Score (0-10) 11/08/2025 2:00 PM EST Veronica Winter RN * Integumentary Question Answer Entry Date Author Skin Condition/Temp Warm;Dry 11/08/2025 2:00 PM ES Veronica Alejandro RN documented in this encounter Discharge Summaries * Maddie Jeter, MADHAV, LINK WIRE FABRIC MACHINE TENDER - 11/08/2025 2:11 PM EST [facility] Care Management Discharge Summary Patient name: David Serrano Patient : 1960 Age: 65 y.o. Gender: male Patient emergency contact: Extended Emergency Contact Information Primary Emergency Contact: Stacy Serrano [address] [address] [place] [address] Mobile Relation: Spouse Attending provider: Vani Winkler MD Primary care physician: Dr. Chris Medel MD The MD has indicated that the patient is ready for discharge. David Serrano was referred and accepted at at . The patient will be transported by at Transfer Mode/Level of Care: Family DC Summary and Home Health orders have been faxed to facility by [facility] Steffany. The plan has been reviewed: Patient/Family Informed of Discharge Plan: Yes Plan Reviewed With Patient, Family, or Significant Other: Yes Patient and or family are aware and in agreement with the discharge plan: Yes Family Member Name and Relationship Notified at Discharge: Stacy Serrano-spouse Family Contact Number: [phone] Plan reviewed with and other members of the health care team: Yes Care Plan Completed: Yes No further CM/SW needs. This plan has been reviewed with the multi-disciplinary team. Treatment Preferences Treatment Preferences: Distance Post-Discharge Goals Patient's Post-Discharge goals: Get stronger at home Post Acute Care Provider Information: Community Services at Discharge Community Services at Home post discharge: [facility] Name/Phone # post discharge: [facility] [phone] Home Health Services Types at Discharge: PT/OT/BILINGUAL ACCOUNT MANAGER, [facility] Maddie COREY, TONYA [phone] * Breonna Villa MD - 11/07/2025 12:52 PM EST Subspecialty Follow-up Appointment Chart Note Service: Liver Transplant Subspecialty Follow-up Disposition: The patient requires subspecialty follow-up as noted below: Note: This information is for [facility] Scheduling use only. It is not the responsibility of the primaryinpatient service to schedule this appointment. Visit type:Faculty Clinic Name of provider to schedule with: Dr. Zimmerman Timin-2 weeks of discharge Location: [facility] Ok to overbook if there are no open appointment slots?: No Reason for follow up: ACR Comments: Discharged on 60mg prednisone for Mod ACR In case of scheduling conflict, contact Pager/Cell phone number: Fellow Oncall BREONNA VILLA MD 11/07/2025 12:52 PM documented in this encounter Discharge Instructions * Discharge Instructions* Keith Grimm CNP - 11/03/2025 1:32 PM EST Activity: As tolerated. Get out of bed and walk frequently. Diet: Regular diet Medications: Please call if you have ANY questions about your medications. Please take sure that your immunosuppression medications are taken as directed by the medical staff(ie, timing is very important). Please discuss any new medications with the transplant team prior to starting. Tylenol is OK to take for pain control, but dose should be kept under 2 gm/day. Please discuss withyour site coordinator if you have any question about appropriate dose to take. Other Instructions: Call post-liver transplant clinic with questions [phone] or call [facility] at [phone] and ask for the liver watershed coordinator talent acquisition program manager if you experience any of the following: [...] Date and time as instructed by your watershed coordinator in liver transplant clinic in [facility], 3rd floor or Video Visit. documented in this encounter Medications at Time [...] each 2 10/22/2025 3:31 PM EST 10/18/2025 atovaquone (MEPRON) 750 mg/5 mL suspension Take 10 mLs (1,500 mg total) by mouth daily. 300 mL 2 11/08/2025 4:34 PM EST 11/05/2025 blood sugar diagnostic (GLUCOSE BLOOD) Strp Use [...] mouth 3 times a day as needed. 10/30/2025 mycophenolate (CELLCEPT) 250 mg capsule Take 2 [...] 10/22/2025 3:31 PM EST 10/18/2025 predniSONE (DELTASONE) 20 MG tablet Take 3 tablets (60 mg total) by mouth daily. 30 tablet 11/08/2025 4:34 PM EST 11/09/2025 senna-docusate (SENNOSIDES-DOCUSA TE SODIUM) 8.6-50 mg per tablet Take 1 tablet by mouth at bedtime as needed for constipation. 30 tablet 10/22/2025 3:31 PM EST 10/18/2025 tacrolimus (PROGRAF) 1 MG capsule Take 6 capsules (6 mg total) by mouth 2 times a day. 11/08/2025 traMADoL (ULTRAM) 50 mg tabletIndications: Liver transplanted (CMS-HCC) Take 1 tablet (50 mg total) by mouth every 6 hours as needed for up to 7 days. 20 tablet 11/08/2025 4:34 PM EST 11/08/2025 sulfamethoxazole-t rimethoprim (BACTRIM) 400-80 mg per tablet Take 1 tablet by mouth daily. 30 tablet 2 10/22/2025 3:31 PM EST 10/18/2025 5 documented as of this encounter Progress Notes * Breonna Villa MD - 11/07/2025 12:39 PM EST Hepatology Consult Progress Note Subjective / Interval History Interval events: Patient feels improved today. Happy to hear that liver enzymes have improved. WBC slightly up likely form steroids. Objective Vitals: Temp: [97.4 ??F (36.3 ??C)-97.9 ??F (36.6 ??C)] 97.6 ??F (36.4 ??C) Heart Rate: [64-73] 73 Resp: [16-18] 18 BP: (98-124)/(57-78) 98/57 Intake/Output Summary (Last 24 hours) at 11/07/2025 1240 Last data filed at 11/07/2025 1100 Gross per 24 hour Intake 860 ml Output 501 ml Net 359 ml Physical Exam Gen: NAD, resting in bed HEENT: Icteric sclera, EOMI Neck: Neck is supple. CV: RRR Lungs: Non-labored breathing Abdomen: Soft, nontender, nondistended, surgical scar with radha healing well. Extremities: No bilateral lower extremity edema, warm and well-perfused Skin: less Jaundiced Neuro: A&Ox3, no focal neuro deficits appreciated Psych: appropriate mood and affect Laboratory and Imaging: Reviewed MELD 3.0: 11 at 10/21/2025 6:35 AM Calculated from: Serum Creatinine: 0.96 mg/dL (Using min of 1 mg/dL) at 10/21/2025 6:35 AM Serum Sodium: 139 mmol/L (Using max of 137 mmol/L) at 10/21/2025 6:35 AM Total Bilirubin: 0.9 mg/dL (Using min of 1 mg/dL) at 10/21/2025 6:35 AM Serum Albumin: 2.2 g/dL at 10/21/2025 6:35 AM INR(ratio): 1.4 at 10/19/2025 11:03 PM Age at listing (hypothetical): 65 years Sex: Male at 10/21/2025 6:35 AM Assessment: David Serrano is a 65 y.o. 65 y.o. 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 Post op course notable for ligation of L renal vein for portal flow modulation and NAC otherwise post op course uncomplicated discharged on 10/22 who presented as direct admit for hyperbilirubinemia on opt labs. Hyperbilirubinemia S/p recent OLT Here with hyperbilirubinemia and jaundice Does not meet criteria for cholangitis (despite soft BP) CT imaging with no biliary dilation S/p ERCP showing stricture with stent placement despite that hyperbilirubinemia uptrended S/p liver bx preliminary read now showing has moderate-severe ACR with DAVIS 6-7. Also with evidence of biliary obstruction on the biopsy. Received methylpred 500mg 11/05 Received Methylpred 250mg on 11/06 LFTs today improved PLAN / RECOMMENDATIONS: IV methylprednisolone 125 mg today Start PO prednisone 60mg tomorrow on 11/08 and continue upon discharge Trend liver enzymes Continue current IS with tacro 6mg BID and cellcept 500mg BID, daily tacro levels We will set patient for outpatient follow-up with Dr. Zimmerman Rest of the care per primary team Liver Team will Sign Off If you have any questions, please contact the Liver fellow on-call. Plan discussed with Dr. Reaves. BREONNA VILLA MD Gastroenterology Fellow PGY4 Cosigned by Nigel Reaves MD at 11/07/2025 1:05 PM EST Associated attestation - Nigel Reaves MD - 11/07/2025 1:05 PM EST Attending Physician's Note: I have personally seen and examined the patient, reviewed the chart, imaging and labs and have discussed the case with Dr. Villa, agree with her note and confirm it. 65 y.o. 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 He was an A to Otransplant (blood type). Currently admitted with jaundice and evidence of hemolysis on labs requiring blood transfusions. LFTs significantly elevated. Underwent percutaneous liver biopsy 11/05. Prelim read showed moderate ACR. Received 500 mg solu medrol on 11/05 and 250 mg on 11/06. LFTs down trending. Feeling better this AM PE Vitals: 11/07/25 0001 11/07/25 0410 11/07/25 0851 11/07/25 1210 BP: 111/63 116/73 124/78 98/57 BP Location: Left upper arm Left upper arm Right upper arm Right upper arm Patient Position: Lying Lying Lying Lying BP Cuff Size: Regular Regular Pulse: 64 69 67 73 Resp: 16 16 18 18 Temp: 97.4 ??F (36.3 ??C) 97.7 ??F (36.5 ??C) 97.9 ??F (36.6 ??C) 97.6 ??F (36.4 ??C) TempSrc: Oral Oral Oral Oral SpO2: 98% 99% 98% 99% Weight: Height: In no apparent cardiopulmonary distress Sclera icteric Alert and oriented times three, no tremors No LE edema A&P 65 y.o. year old male with complex medical issues as detailed in HPI. A to O transplant with high risk of rejection. 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 Received 500 mg IV steroids then 250 mg. LFTs showed significant improvement today. Will administer 125 mg today then oral Pred 60 starting tomorrow. Tacro goal level 8-12. MMF 500 BID. Will sign off This note was completely edited, written and [...] current evaluation and management for this patient. Nigel Reaves MD GI and Hepatology Staff * Jamie Warner MD - 11/06/2025 2:21 PM EST Images from the original note were not included. HEMATOLOGY ONCOLOGY PROGRESS NOTE Recommendations David Serrano is a 65 y.o. male on hospital day 3. 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 Hematology consulted for ? Hemolysis as an etiology for his anemia. He is presenting with significant hyperbilirubinemia (indirect and direct) and anemia with Haptoglobin <30. He did get blood 11/03 and 11/04 and does have liver injury, which can both make haptoglobin undetectable. On 11/05 and 11/06 he had reported melena, which could explain is anemia. Could also consider passenger lymphocyte syndrome and related hemolysis but there does seem to be several other more likely causes. FRANSICO screen was positive, but IgG and complement were negative, arguing against an autoimmune hemolytic anemia. Retic count is elevated and appropriate for his degree of anemia. He has undergone liver bx to evaluate for rejection on 11/05 which unfortunately did reveal moderate/severe rejection. He was started on high doses steroids (methylpred). On admission, he received CT abd/pelvis. There was wedge shaped areas of ?infarcts. Per discussion with transplant surgery, there was some thought that infarcts may be related to manipulation during prior surgery. Vasculature does appear patent by duplex. Of note, there is left renal vein thrombus with extension to splenorenal shunt, and an additional thrombus seen in the collateral vessels in the left upper quadrant. Could consider thrombosis of graft as etiology of liver injury. Plan and recommendations - Smear pending with pathology review - Please send for Supercoombs for further evaluation given the FRANSICO negative hemolysis. Also order IgG, IgA and IgM immunoglobulins - Consider repeat CT abd/pelvis to evaluate for evolution of ? Thrombosis and consider anticoagulation with heparin drip. Patient discussed with attending Dr. Carlos Warner MD Hematology/Oncology Fellow HPI / Interval Update /Subjective Interval History: - last transfusion 11/05 x2 - hgb has been stable - reported melena last night and today. - Bilirubin increase to 17 Medications Current Facility-Administered Medications Medication Dose Frequency Provider Last Admin acetaminophen 975 mg Q8H Aspen Parr MD 975 mg at 11/06/25 0809 acyclovir 800 mg BID Aspen Parr MD 800 mg at 11/06/25 0809 atovaquone 1,500 mg Daily 0900 LAISHA Ferreira 1,500 mg at 11/06/25 0808 calcium carbonate 500 mg TID PRN Lala Camilo MD 500 mg at 11/05/25 0022 dextrose 10% in water 12.5 g Q15 Min PRN Aspen Parr MD Or dextrose 10% in water 25 g Q15 Min PRN Aspen Parr MD glucose 12 g Q15 Min PRN Aspen Parr MD [Held by provider] heparin 5,000 Units 3 times per day LAISHA Ferreira insulin lispro 0-10 Units Nightly (2100) LAISHA Ferreira insulin lispro 0-12 Units TID AC LAISHA Ferreira 10 Units at 11/06/25 1250 insulin lispro 5 Units TID AC LAISHA Ferreira 5 Units at 11/06/25 1250 insulin NPH 10 Units BID LAISHA Ferreira 10 Units at 11/06/25 0810 methocarbamoL 500 mg BID Aspen Parr MD 500 mg at 11/06/25 0809 methylprednisolone 250 mg Q24H LAISHA Hernandez 250 mg at 11/06/25 1159 Followed by [START ON 11/08/2025] methylprednisolone 125 mg Q24H LAISHA Hernandez mycophenolate 500 mg BID Aspen Parr MD 500 mg at 11/06/25 0809 [Held by provider] NIFEdipine 30 mg Daily 0900 Aspen Parr MD pantoprazole (PROTONIX) IV 40 mg BID6 Lala Camilo MD 40 mg at 11/06/25 0616 piperacillin-tazobactam (ZOSYN) IV extended interval 3.375 g Q8H Keith Grimm CNP 3.375 g at 11/06/25 0619 tacrolimus 6 mg BID7 LAISHA Ferreira 6 mg at 11/06/25 0616 traMADol 25 mg Q6H PRN Sherrie Bittel, PA Or traMADol 50 mg Q6H PRN Sherrie Bittel, PA 50 mg at 11/05/25 2200 Physical Exam and Objective Findings Physician Exam Vitals: 11/05/25 1930 11/06/25 0300 11/06/25 0725 11/06/25 1108 BP: 129/74 123/73 118/82 105/58 BP Location: Left upper arm Right upper arm Right upper arm Left upper arm Patient Position: Lying Lying Lying Lying BP Cuff Size: Regular Regular Pulse: 66 66 63 73 Resp: 19 16 18 16 Temp: 97.6 ??F (36.4 ??C) 97.7 ??F (36.5 ??C) 97.2 ??F (36.2 ??C) 97.5 ??F (36.4 ??C) TempSrc: Oral Oral Oral Oral SpO2: 98% 97% 94% 95% Weight: Height: Physical Exam Constitutional: Normal appearance. No acute distress. Eyes: Conjunctiva/sclera: Conjunctivae normal. Non icteric. ENT: Head: Normocephalic and atraumatic. Nose: Nose normal. Neck: Musculoskeletal: Normal range of motion and neck supple. Cardiovascular: Rate and Rhythm: Normal rate and regular rhythm. Heart sounds: Normal S1 & S2. No murmur. No friction rub. No gallop. Pulmonary: Effort: Pulmonary effort is normal. Breath sounds: Normal breath sounds. No wheezing or rales. Abdominal: Palpation: Abdomen is soft, non tender, non distended Musculoskeletal: Normal range of motion in upper and lower limbs. General: No swelling. Skin: General: Skin is warm and dry. Coloration: Skin is without rashes or discoloration. Neurological: General: No focal deficit present. CN II-XII grossly intact. Mental Status: Aox3. Laboratory Results Lab Results Component Value Date WBC 8.7 11/06/2025 HGB 8.3 (L) 11/06/2025 HCT 23.4 (L) 11/06/2025 MCV 93.4 11/06/2025 PLT 156 11/06/2025 Lab Results Component Value Date CREATININE 0.97 11/06/2025 Imaging Cosigned by Bowen Gonzalez MD at 11/06/2025 3:13 PM EST Associated attestation - Bowen Gonzalez MD - 11/06/2025 3:13 PM EST ATTENDING I saw and examined the patient on 11/06/2025, personally confirmed carcamo findings from history, laboratory/imaging, reports from other providers, and the physical exam, and discussed the case with the fellow. I directed the plan and agree with the findings and plan as documented in the fellow???s note, with the additional comments as noted below. David Serrano is seen for anemia, possibly hemolytic, in the context of an ABO incompatible blood transplant. The patient is feeling reasonably well this morning. Physical examination is unchanged from yesterday, including scleral icterus, generalized jaundice, and gynecomastia. He has an extensive abdominalincision. His reticulocyte count is as pointed out below elevated to a degree that is at least appropriate although it may be a little higher than would be typical for the degree of anemia. This rules out posttransplant pure red cell aplasia. His FRANSICO is positive but the IgG and complement FRANSICO are both negative. This could be a consequence of his ABO incompatible transplant, in which case a super Melida test has been ordered. It could alsoreflect nonspecific inflammation and nonspecific binding of IgG. This would be related to inflammation from his rejection. If his ABO incompatible transplant has led to a passenger lymphocyte syndrome causing autoimmune hemolysis, the treatment for first-line would be steroids and he is already receiving a significant steroid dose as part of his transplant management. I do not believe anything other than transfusion support is required at the present moment. We will await further clarifying studies and continue to follow with you. Bowen Gonzalez Jr., MD, MACP Professor & Dsp Engineer, Classical Hematology Arturo Penaloza MD Endowed Chair in Bleeding & Clotting * Breonna Villa MD - 11/06/2025 11:06 AM EST Hepatology Consult Progress Note Subjective / Interval History Interval events: Patient seen today says he feels better overall. He reports some dark black stoolsbut hgb stable on labs. Yesterday started on steroids high dose. Today labs with up trending hyperbilirubinemia. Seen by hematology team yesterday. We discussed with him that if LFTs do not improve by tomorrow we might need to repeat liver biopsy tomorrow. Objective Vitals: Temp: [97.2 ??F (36.2 ??C)-98.1 ??F (36.7 ??C)] 97.2 ??F (36.2 ??C) Heart Rate: [63-80] 63 Resp: [0-24] 18 BP: (85-129)/(54-82) 118/82 Intake/Output Summary (Last 24 hours) at 11/06/2025 1107 Last data filed at 11/06/2025 0400 Gross per 24 hour Intake 555 ml Output 775 ml Net -220 ml Physical Exam Gen: NAD, resting in bed HEENT: Icteric sclera, EOMI Neck: Neck is supple. CV: RRR Lungs: Non-labored breathing Abdomen: Soft, nontender, nondistended, surgical scar with radha healing well. Extremities: No bilateral lower extremity edema, warm and well-perfused Skin: Jaundice Neuro: A&Ox3, no focal neuro deficits appreciated Psych: appropriate mood and affect Laboratory and Imaging: Reviewed MELD 3.0: 11 at 10/21/2025 6:35 AM Calculated from: Serum Creatinine: 0.96 mg/dL (Using min of 1 mg/dL) at 10/21/2025 6:35 AM Serum Sodium: 139 mmol/L (Using max of 137 mmol/L) at 10/21/2025 6:35 AM Total Bilirubin: 0.9 mg/dL (Using min of 1 mg/dL) at 10/21/2025 6:35 AM Serum Albumin: 2.2 g/dL at 10/21/2025 6:35 AM INR(ratio): 1.4 at 10/19/2025 11:03 PM Age at listing (hypothetical): 65 years Sex: Male at 10/21/2025 6:35 AM Assessment: David Serrano is a 65 y.o. 65 y.o. 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 Post op course notable for ligation of L renal vein for portal flow modulation and NAC otherwise post op course uncomplicated discharged on 10/22 who presented as direct admit for hyperbilirubinemia on opt labs. Hyperbilirubinemia S/p recent OLT Here with hyperbilirubinemia and jaundice Does not meet criteria for cholangitis (despite soft BP) CT imaging with no biliary dilation S/p ERCP showing stricture with stent placement despite that hyperbilirubinemia uptrended S/p liver bx preliminary read now showing has moderate-severe ACR with DAVIS 6-7. Also with evidence of biliary obstruction on the biopsy. Received methylpred 500mg 11/05 LFTs today uptrended PLAN / RECOMMENDATIONS: IV methylprednisolone 250mg today Trend liver enzymes If enzymes do not improve possible liver biopsy tomorrow Keep NPO after midnight Monitor Hgb and bowel movements (post liver biopsy hemobilia vs from sphincterotomy) Continue current IS with tacro 6mg BID and cellcept 500mg BID, daily tacro levels Rest of the care per primary team We will continue to follow along. If you have any questions, please contact the Liver fellow on-call. Plan discussed with Dr. Reaves. BREONNA VILLA MD Gastroenterology Fellow PGY4 Cosigned by Nigel Reaves MD at 11/06/2025 11:39 AM EST Associated attestation - Nigel Reaves MD - 11/06/2025 11:39 AM EST Attending Physician's Note: I have personally seen and examined the patient, reviewed the chart, imaging and labs and have discussed the case with Dr. Villa, agree with her note and confirm it. 65 y.o. 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 He was an A to Otransplant (blood type). Currently admitted with jaundice and evidence of hemolysis on labs requiring blood transfusions. LFTs significantly elevated. Underwent percutaneous liver biopsy 11/05. Prelim read showed moderate ACR. Received 500 mg solu medrol on 11/05. Feeling better this AM PE Vitals: 11/05/25 19311/06/25 0300 11/06/25 0725 11/06/25 1108 BP: 129/74 123/73 118/82 105/58 BP Location: Left upper arm Right upper arm Right upper arm Left upper arm Patient Position: Lying Lying Lying Lying BP Cuff Size: Regular Regular Pulse: 66 66 63 73 Resp: 18 Temp: 97.6 ??F (36.4 ??C) 97.7 ??F (36.5 ??C) 97.2 ??F (36.2 ??C) 97.5 ??F (36.4 ??C) TempSrc: Oral Oral Oral Oral SpO2: 98% 97% 94% 95% Weight: Height: In no apparent cardiopulmonary distress Sclera icteric Alert and oriented times three, no tremors No LE edema A&P 65 y.o. year old male with complex medical issues as detailed in HPI. A to O transplant with high risk of rejection. 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 Received 500 mg IV steroids but no improvement in liver enzymes. Will administer 250 mg IV today and if no improvement, will consider re-biopsy. Tacro goal level 8-12. MMF 500 BID. This note was completely edited, written and [...] current evaluation and management for this patient. Nigel Reaves MD GI and Hepatology Staff * LAISHA Hernandez - 11/06/2025 9:44 AM EST Transplant Surgery Progress Note Patient: David Serrano Admit Date: 11/02/2025 Transplant date: s/p OLT 10/17/25 SUBJECTIVE Sp OLT on immunosuppression NAEO AF, VSS +melena yest and this am Denies nausea/vomiting, feels hungry Voiding spont, urine is dark OBJECTIVE Vitals: Temp: [97.2 ??F (36.2 ??C)-98.1 ??F (36.7 ??C)] 97.2 ??F (36.2 ??C) Heart Rate: [63-80] 63 Resp: [0-24] 18 BP: (85-129)/(54-82) 118/82 I/O last 3 completed shifts: In: 915 [P.O.:620; Blood:295] Out: 1750 [Urine:1750] Physical Exam: Gen: NAD Neuro: Aox3, nonfocal HEENT: atrauamtic, bilateral scleral icterus, PERRL, outer ears normal, no nasal drainage, moist oral membranes CV: RRR, normotensive Resp: no respiratory distress Abd: Soft, NT/ND Ext: Wwp : Voids spontaneously Labs: Recent Labs 11/05/25 0610 11/05/25 1849 11/06/25 0602 WBC 13.1* 9.3 8.7 HGB 7.0* 8.4* 8.3* PLT 162 169 156 Recent Labs 11/04/25 0339 11/05/25 0610 11/06/25 0602 NA 136 137 132* K 4.2 4.1 4.6 CL 106 106 103 CO2 23 23 21 BUN 19 20 21 CREATININE 1.04 1.20 0.97 CALCIUM 7.9* 7.2* 7.2* MG 1.7 1.7 1.9 PHOS 3.4 2.8 2.9 Recent Labs 11/04/25 0339 11/05/25 0610 11/06/25 0602 AST 40* 74* 66* ALT 56* 65* 78* ALKPHOS 325* 381* 445* BILITOT 7.1* 14.2* 17.0* BILIDIRECT 4.22* 8.89* 9.93* ALBUMIN 2.9* 2.6* 2.8* No results for input(s): INR , PROTIME , PTT in the last 72 hours. No results for input(s): POCGLU in the last 72 hours. Invalid input(s): GLU Current Medications: Scheduled Meds: acetaminophen 975 mg Oral Q8H acyclovir 800 mg Oral BID atovaquone 1,500 mg Oral Daily 0900 [Held by provider] heparin 5,000 Units Subcutaneous 3 times per day insulin lispro 0-10 Units Subcutaneous Nightly (2100) insulin lispro 0-12 Units Subcutaneous TID AC insulin lispro 5 Units Subcutaneous TID AC insulin NPH 10 Units Subcutaneous BID methocarbamoL 500 mg Oral BID methylprednisolone 250 mg Intravenous Q24H Followed by [START ON 11/08/2025] methylprednisolone 125 mg Intravenous Q24H mycophenolate 500 mg Oral BID [Held by provider] NIFEdipine 30 mg Oral Daily 0900 pantoprazole (PROTONIX) IV 40 mg Intravenous BID6 piperacillin-tazobactam (ZOSYN) IV extended interval 3.375 g Intravenous Q8H tacrolimus 6 mg Oral BID7 Continuous Infusions: electrolyte 75 mL/hr (11/05/25 1754) PRN Meds: calcium carbonate, dextrose 10% in water OR dextrose 10% in water, glucose, traMADol OR traMADol ASSESSMENT/PLAN David Serrano is a 65 y.o. 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 Post op course notable for ligation of L renal vein for portal flow modulation and NAC who presents as a direct admit for hyperbilirubinemia on outpatient labs. PLAN: -followup heme recs -methylpred 250x2 days per protocol -discuss rising bili with hepatology -daily hapto/ldh, hgb stable this am -melena; hgb stable CV: HDS PULM: RA, encourage IS/OOB FEN/GI: Reg diet #Elevated LFTs - CT 11/03 Status post orthotopic liver transplant with multiple linear wedge- shaped areas of hypoenhancement concerning for multiple acute infarcts involving hepatic segments 8, 7 and 2. The transplant vasculature appears patent. - dicussed w/ surgeon, expected with intra-op manipulation of the liver during transplant and liverduplex flow good. Continue to monitor. Liver biopsy pending. If LFTs continue to rise in future, may need repeat imaging but other work-up still pending currently. 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 Transfuse with only type O blood. - FRANSICO and retic count ordered - heme consult - follow-up recs - hgb stable this am ID: Hold bactrim in case dili or drug-induce hemolytic anemia - atova + acyclovir - Zosyn started empirically pre-ERCP, plan for 5D post ercp abx prophylaxis # coronavirus 229E -incidental, no respiratory symptoms IS: tacro, MMF, pred taper - mod to severe rejection - methylpred 500 yest, 250 mg today and tmrw ENDO: HDSSI+NPH PPX: SQH held, PPI DISPO: floor Final plan per attending physician LAISHA HERNANDEZ Transplant Surgery 11/06/[address] MD at 11/10/2025 4:33 PM EST Associated attestation - Lane Troy MD - 11/10/2025 4:33 PM EST Transplant Surgery Attending Attestation I have seen and examined the patient and agree with the plan. All points of care were reviewed in amultidisciplinary fashion with the housestaff and teams involved. Immunosuppression was reviewed and adjusted accordingly. This note represents care provided with the multidisciplinary team on 11/06/2025. POD#20 s/p OLT Admitted with elevated liver enzymes and T.bili - underwent ERCP and stenting for biliary stricture Also had evidence of hemolysis --> unclear passenger lymphocyte syndrome Liver biopsy yesterday showed moderate to severe rejection, received methylprednisolone 500mg yesterday Still has elevated T.bili and stable liver enzymes Otherwise, no complaints - had melena x2 overnight Abdomen soft, non-tender PLAN - Continue IV solumedrol for treatment of moderate-severe rejection - Follow up with hematology regarding hemolysis and passenger lymphocyte syndrome - Continue to follow hemoglobin, likely from ERCP and sphincterotomy Lane Troy MD Transplant and Hepatobiliary Surgery [phone] (cell) * Lore Nevarez, FUR TAILOR - 11/06/2025 7:47 AM EST GI FOLLOW UP NOTE ID: [id number] David Serrano 65 yo male S/p ERCP for hyperbilirubinemia Interim: Patient reports feeling well. Denies abdominal pain, nausea or vomiting. Tolerating current diet. Reports having bowel function, stools appear dark/black. Denies dizziness, lightheadedness or shortness of breath. No fevers or chills. ROS: 10 pt ROS negative unless otherwise noted above Vitals: Temp: [97.2 ??F (36.2 ??C)-98.3 ??F (36.8 ??C)] 97.2 ??F (36.2 ??C) Heart Rate: [63-80] 63 Resp: [0-24] 18 BP: (85-129)/(54-82) 118/82 Intake/Output Summary (Last 24 hours) at 11/06/2025 0747 Last data filed at 11/06/2025 0400 Gross per 24 hour Intake 555 ml Output 1075 ml Net -520 ml Physical Exam Gen: Chronically ill appearing. No acute distress. HEENT: NC/AT, EOMI, moist mucus membranes CV: RRR, no m/r/g, no LE edema Lungs: Clear to auscultation bilaterally. Abdomen: +BS, soft, tender Extremities: warm, well perfused Neuro: A&Ox3, moving all extremities spontaneous Skin: no bruising/rashes, +jaundice Psych: normal affect Recent labs and imaging reviewed Latest Reference Range & Units 11/03/25 06:46 11/04/25 03:39 11/05/25 06:10 11/06/25 06:02 Sodium 133 - 146 mmol/L 133 136 137 132 (L) Potassium 3.5 - 5.3 mmol/L 3.9 4.2 4.1 4.6 Chloride 98 - 110 mmol/L 105 106 106 103 Carbon Dioxide (CO2) 21 - 33 mmol/L 21 23 23 21 Anion Gap 3 - 16 mmol/L 7 7 8 8 BUN 7 - 25 mg/dL 25 19 20 21 Creatinine 0.60 - 1.30 mg/dL 1.00 1.04 1.20 0.97 Glucose 70 - 100 mg/dL 144 (H) 123 (H) 147 (H) 307 (H) EGFR 84 80 68 87 Calcium 8.6 - 10.3 mg/dL 7.9 (L) 7.9 (L) 7.2 (L) 7.2 (L) Phosphorus 2.1 - 4.7 mg/dL 3.1 3.4 2.8 2.9 Magnesium 1.5 - 2.5 mg/dL 1.6 1.7 1.7 1.9 Calculated Osmolality, Serum 278 - 305 mOsm/kg 283 286 289 289 (L): Data is abnormally low (H): Data is abnormally high Latest Reference Range & Units 11/02/25 21:08 11/03/25 06:46 11/04/25 03:39 11/05/25 06:10 11/06/25 06:02 Alkaline Phosphatase 36 - 125 U/L 303 (H) 303 (H) 325 (H) 381 (H) 445 (H) AST (SGOT) 13 - 39 U/L 37 47 (H) 40 (H) 74 (H) 66 (H) ALT (SGPT) 7 - 52 U/L 62 (H) 59 (H) 56 (H) 65 (H) 78 (H) Albumin 3.5 - 5.7 g/dL 2.8 (L) 2.7 (L) 2.9 (L) 2.6 (L) 2.8 (L) Protein, Total 6.4 - 8.9 g/dL 5.4 (L) 5.1 (L) 5.9 (L) 5.0 (L) 5.2 (L) Bilirubin, Indirect 0.00 - 1.10 mg/dL 2.86 (H) 3.61 (H) 2.88 (H) 5.31 (H) 7.07 (H) Bili, Total 0.0 - 1.5 mg/dL 7.2 (H) 9.2 (H) 7.1 (H) 14.2 (H) 17.0 (H) Bilirubin, Direct 0.00 - 0.40 mg/dL 4.34 (H) 5.59 (H) 4.22 (H) 8.89 (H) 9.93 (H) (H): Data is abnormally high (L): Data is abnormally low Latest Reference Range & Units 11/04/25 03:39 11/05/25 06:10 11/05/25 18:49 11/06/25 06:02 WBC 3.8 - 10.8 10E3/uL 14.0 (H) 13.1 (H) 9.3 8.7 RBC 4.20 - 5.80 10E6/uL 2.59 (L) 1.96 (L) 2.59 (L) 2.51 (L) Hemoglobin 13.2 - 17.1 g/dL 8.5 (L) 7.0 (L) 8.4 (L) 8.3 (L) Hematocrit 38.5 - 50.0 % 23.9 (L) 18.5 (L) 24.2 (L) 23.4 (L) MCV 80.0 - 100.0 fL 92.4 94.4 93.2 93.4 MCH 27.0 - 33.0 pg 33.0 35.4 (H) 32.3 33.3 (H) MCHC 32.0 - 36.0 g/dL 35.7 37.5 (H) 34.7 35.7 RDW 11.0 - 15.0 % 17.8 (H) 18.0 (H) 18.2 (H) 18.3 (H) Platelet Count 140 - 400 10E3/uL 223 162 169 156 Platelet Estimate ADEQ MPV 7.5 - 11.5 fL 7.5 7.7 7.6 8.3 PLT Morphology PLATELET MORPHO Reticulocyte Count 0.50 - 2.00 % 11.66 (H) Retic Ct Abs 25,000 - 90,000 /uL 301,994 (H) Immature Retic Fract 0.09 - 0.56 0.70 (H) Myelocytes Relative 0.0 - 0.0 % 7.0 (H) Metamyelocytes Relative 0.0 - 0.0 % 2.0 (H) Neutrophils Relative 40.0 - 80.0 % 71.0 Lymphocytes Relative 15.0 - 45.0 % 10.0 (L) Monocytes Relative 0.0 - 12.0 % 5.0 Eosinophils Relative 0.0 - 8.0 % 4.0 Basophils Relative 0.0 - 1.0 % 1.0 nRBC 0 - 0 /100 WBC 10 (H) Absolute Myelocytes 0 - 0 /uL 917 (H) Metamyelocytes Absolute 0 - 0 /uL 262 (H) Neutrophils Absolute 1,520 - 8,640 /uL 9,301 (H) Absolute Lymphocytes 570 - 4,860 /uL 1,310 Monocytes Absolute 0 - 1,296 /uL 655 Eosinophils Absolute 0 - 864 /uL 524 Basophils Absolute 0 - 108 /uL 131 (H) Macrocytosis PRES Microcytosis PRES Polychromasia INC (H): Data is abnormally high (L): Data is abnormally low 11/03/2025 CT A/P: FINDINGS: Lower Chest: Mild bibasilar atelectasis. Scattered pulmonary cysts. No focal consolidation or pleural effusion. Cardiomegaly. Liver: Status post orthotopic liver transplant. Periportal edema. There are multiple linear and wedge-shaped areas of hypoattenuation predominantly involving hepatic segments 7, 8 and 2. No focally suspicious hepatic lesion. Biliary tree: Gallbladder surgically absent. No dilatation of intra or extrahepatic biliary ducts. Spleen: Spleen is enlarged measuring 14.5 cm in maximal axial dimension. Pancreas: Pancreas enhances homogenously. No pancreatic ductal dilation. Adrenal glands: No focal nodule seen. Kidneys/Ureters/Bladder: Delayed left nephrogram with cortical atrophy and large obstructing calculus in the renal pelvis (series 305, image 153). The large obstructing calculus in the left renal pelvis is similar when compared to the outside CT. Additional nonobstructive punctate calculi are also seen in the left kidney. Left-sided urothelial thickening and stranding adjacent to the calyces, renal pelvis, and proximal left ureter are similar to the previous outside CT.Normal size and enhancement of the right kidney. Bladder diverticula. Gastrointestinal tract: Small sliding-type hiatal hernia. The gastrointestinal tract is normal in caliber and wall thickness. The appendix is normal. Lymphatics: Prominent periportal lymph node measuring 1 cm in short axis. Vasculature: Post left renal vein ligation with thrombus seen in the left renal vein (series 305, image 142) with partial thrombosis seen in spontaneous left spinal renal shunt (series 305, image 120). Thrombus is also seen in the collateral vessels in the left upper quadrant (for example, series 603, image 68). The transplant arterial anastomosis appears patent. The portal and hepatic veins are patent. Peritoneum/Retroperitoneum: Loculated fluid in the medial aspect of the hepatic transplant (series 308, image 83) measures 6.1 x 3.4 cm. Small amount of fluid along the right anterior pararenal space. Small volume ascites along the right colic gutter and pelvis. Tiny focus of free air (series 305, image 39) may be postsurgical in etiology. Genital Organs: Prostate is not enlarged. Abdominal wall/Soft tissues: Mild postsurgical scarring/edema along the ventral abdominal wall. Osseous structures: No acute osseous abnormalities or suspicious osseous lesions. IMPRESSION: 1. Status post orthotopic liver transplant with multiple linear wedge-shaped areas of hypoenhancement concerning for multiple acute infarcts involving hepatic segments 8, 7 and 2. The transplant vasculature appears patent. 2. Postoperative changes of left renal vein ligation with thrombus seen in the left renal vein and extending into the splenorenal shunt with delayed left nephrogram. 3. Thrombus is also seen in the collateral vessels in the left upper quadrant. 4. Large obstructing calculus in the renal pelvis on the left with urothelial thickening and stranding adjacent to the calyces, renal pelvis, and proximal left ureter are similar to the previous outside CT. 5. Loculated fluid in the medial aspect of the hepatic transplant. Small volume ascites. Tiny focusof free air may be postsurgical in etiology. Assessment/Plan: Mr. David Serrano is a 65 yo male with history of HTN and ETOH and A1AT disorder cirrhosis d/c ascites and HE S/p OLT 10/17/2025, post-op course notable for ligation of L renal vein for portal flow modulation and NAC, discharged 10/22 who was direct admitted for hyperbilirubinemia on outside labs. Advanced GI consulted for further evaluation of hyperbilirubinemia. #Hyperbilirubinemia #Elevated LFTs # Hx ETOD/A1AT cirrhosis S/p OLT 10/17 - Patient direct admitted for evaluation of hyperbilirubinemia, concerning for obstruction vs stricture - S/P ERCP 11/04 with moderate biliary anastomotic stricture. Sphincterotomy preformed. A 10 Fr x 5cm double pigtail biliary stent was placed. Prophylactic PD stent was placed - Post procedure T bili is up to 17.0(7.1), direct > indirect with elevated LFT in a cholestaticpattern of elevation - S/p liver biopsy 11/05, per hepatology pathology shows moderte-severe ACR with DAVIS 6-7. Also withevidence of biliary obstruction on biopsy - Hepatology following - S/p methylprednisolone 500 mg - Okay for diet as tolerated per primary - Monitor CBC and LFTs - ABD x-ray in 2 weeks to evaluate for spontaneous migration of PD stent, if still present will need EGD for removal, order placed - Referral sent for repeat ERCP in 2 months for stent removal/exchange - Transplanst surgery team following Thank you for the following consultation, we will sign off at this time. Please call with any questions. Patient discussed and chart reviewed with advanced GI attending, Dr. Brian Nevarez CNP Pancreas/Biliary team * LAISHA Ferreira - 11/05/2025 2:28 PM EST Transplant Surgery Progress Note Patient: David Serrano Admit Date: 11/02/2025 Transplant date: s/p OLT 10/17/25 SUBJECTIVE NAEO AF, VSS Hgb downtrend to 7 No concern for bleeding T bili sharp increase despite ERCP anastomotic stenting Back pain per patient same as since transplant Denies nausea, tolerated broth last evening OBJECTIVE Vitals: Temp: [97.6 ??F (36.4 ??C)-98.3 ??F (36.8 ??C)] 97.6 ??F (36.4 ??C) Heart Rate: [65-76] 74 Resp: [0-24] 17 BP: (94-118)/(53-72) 99/62 I/O last 3 completed shifts: In: 1221.7 [P.O.:360; I.V.:550; Blood:311.7] Out: 1700 [Urine:1700] Physical Exam: Gen: NAD Neuro: Aox3, nonfocal HEENT: atrauamtic, bilateral scleral icterus, PERRL, outer ears normal, no nasal drainage, moist oral membranes CV: RRR, normotensive Resp: no respiratory distress Abd: Soft, NT/ND Ext: Wwp : Voids spontaneously Labs: Recent Labs 11/03/25 2114 11/04/25 0339 11/05/25 0610 WBC 13.2* 14.0* 13.1* HGB 7.2* 8.5* 7.0* PLT 240 223 162 Recent Labs 11/03/25 0646 11/04/25 0339 11/05/25 0610 NA 133 136 137 K 3.9 4.2 4.1 CL 105 106 106 CO2 BUN CREATININE 1.00 1.04 1.20 CALCIUM 7.9* 7.9* 7.2* MG 1.6 1.7 1.7 PHOS 3.1 3.4 2.8 Recent Labs 11/03/25 0646 11/04/25 0339 11/05/25 0610 AST 47* 40* 74* ALT 59* 56* 65* ALKPHOS 303* 325* 381* BILITOT 9.2* 7.1* 14.2* BILIDIRECT 5.59* 4.22* 8.89* ALBUMIN 2.7* 2.9* 2.6* No results for input(s): INR , PROTIME , PTT in the last 72 hours. No results for input(s): POCGLU in the last 72 hours. Invalid input(s): GLU Current Medications: Scheduled Meds: acetaminophen 975 mg Oral Q8H acyclovir 800 mg Oral BID fentaNYL heparin 5,000 Units Subcutaneous 3 times per day insulin regular 0-12 Units Subcutaneous Q6H Scheduled methocarbamoL 500 mg Oral BID midazolam mycophenolate 500 mg Oral BID [Held by provider] NIFEdipine 30 mg Oral Daily 0900 pantoprazole 40 mg Oral QAM AC piperacillin-tazobactam (ZOSYN) IV extended interval 3.375 g Intravenous Q8H predniSONE 20 mg Oral Daily 0900 [Held by provider] sulfamethoxazole-trimethoprim 1 tablet Oral Daily 0900 tacrolimus 5 mg Oral BID Continuous Infusions: electrolyte 75 mL/hr (11/05/25 0021) sodium chloride 0.9 % sodium chloride 0.9 % 50 mL/hr (11/05/25 1047) sodium chloride 0.9 % PRN Meds: calcium carbonate, dextrose 10% in water OR dextrose 10% in water, fentaNYL, glucose,midazolam, traMADol OR traMADol ASSESSMENT/PLAN David Serrano is a 65 y.o. 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 Post op course notable for ligation of L renal vein for portal flow modulation and NAC who presents as a direct admit for hyperbilirubinemia on outpatient labs. PLAN: CV: HDS PULM: RA, encourage IS/OOB FEN/GI: Reg diet #Elevated LFTs - CT 11/03 Status post orthotopic liver transplant with multiple linear wedge- shaped areas of hypoenhancement concerning for multiple acute infarcts involving hepatic segments 8, 7 and 2. The transplant vasculature appears patent. - dicussed w/ surgeon, expected with intra-op manipulation of the liver during transplant and liverduplex flow good. Continue to monitor. Liver biopsy pending. If LFTs continue to rise in future, may need repeat imaging but other work-up still pending currently. - s/p ercp 11/04 with mod biliary anastomotic stricture s/p stent placement and PD stent placement -Abd xray at 2weeks to evaluate for spontaneous migration of PD stent, if still present EGD for removal of PD stent - T bili continues to rise - liver transplant biopsy today /RENAL: good UOP, Cr stable - CT 11/03: Postoperative changes of left renal vein ligation with thrombus seen in the left renalvein and extending into the splenorenal shunt with delayed left nephrogram. 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 Transfuse with only type O blood.Hapto and LDH ( though will be skewed given transfusion prior ). Trend. - peripheral smear to eval for schistocytes added on to 11/02 hgb of 5.7, result pending - FRANSICO and retic count ordered - heme consult ID: acyclovir. Hold bactrim in case dili or drug-induce hemolytic anemia - Zosyn started empirically pre-ERCP, plan for 5D post ercp abx prophylaxis # coronavirus 229E -incidental, no respiratory symptoms IS: tacro, MMF, pred taper ENDO: HDSSI PPX: SQH, PPI DISPO: floor Final plan per attending physician LAISHA FERREIRA Transplant Surgery 11/05/[address] Troy MD at 11/05/2025 7:36 PM EST Associated attestation - Lane Troy MD - 11/05/2025 7:36 PM EST Transplant Surgery Attending Attestation I have seen and examined the patient and agree with the plan. All points of care were reviewed in amultidisciplinary fashion with the housestaff and teams involved. Immunosuppression was reviewed and adjusted accordingly. This note represents care provided with the multidisciplinary team on 11/05/2025. - Patient still has uptrending T.bili today up to 14.2 s/p ERCP - Evidence of hemolysis on labs - Consult hematology for possible passenger lymphocyte syndrome (O to A liver) - Transfuse 1 unit PRBC in context of possible ongoing hemolysis - Plan for liver biopsy today Lane Troy MD Transplant and Hepatobiliary Surgery [phone] (cell) * Lore Nevarez CNP - 11/05/2025 8:25 AM EST GI FOLLOW UP NOTE ID: [id number] David Serrano 65 yo male S/p ERCP for hyperbilirubinemia Interim: Patient reports feeling well. Denies abdominal pain, nausea or vomiting. He was tolerating a clear liquid diet overnight without nausea or vomiting. Reports having bowel function. Afebrile, 24 hours temp max 98.3 F. Some chills. No shortness of breath or cough. ROS: 10 pt ROS negative unless otherwise noted above Vitals: Temp: [97.6 ??F (36.4 ??C)-99.1 ??F (37.3 ??C)] 98.3 ??F (36.8 ??C) Heart Rate: [65-76] 76 Resp: [16-20] 17 BP: (94-135)/(53-79) 94/56 FiO2: [48 %-100 %] 100 % Intake/Output Summary (Last 24 hours) at 11/05/2025 0825 Last data filed at 11/05/2025 0808 Gross per 24 hour Intake 910 ml Output 1175 ml Net -265 ml Physical Exam Gen: Chronically ill appearing. No acute distress. HEENT: NC/AT, EOMI, moist mucus membranes CV: RRR, no m/r/g, no LE edema Lungs: Clear to auscultation bilaterally. Abdomen: +BS, soft, tender Extremities: warm, well perfused Neuro: A&Ox3, moving all extremities spontaneous Skin: no bruising/rashes, +jaundice Psych: normal affect Recent labs and imaging reviewed Latest Reference Range & Units 11/02/25 21:08 11/03/25 06:46 11/04/25 03:39 11/05/25 06:10 Sodium 133 - 146 mmol/L 132 (L) 133 136 137 Potassium 3.5 - 5.3 mmol/L 4.6 3.9 4.2 4.1 Chloride 98 - 110 mmol/L 103 105 106 106 Carbon Dioxide (CO2) 21 - 33 mmol/L 22 21 23 23 Anion Gap 3 - 16 mmol/L 7 7 7 8 BUN 7 - 25 mg/dL 29 (H) 25 19 20 Creatinine 0.60 - 1.30 mg/dL 1.17 1.00 1.04 1.20 Glucose 70 - 100 mg/dL 289 (H) 144 (H) 123 (H) 147 (H) EGFR 70 84 80 68 Calcium 8.6 - 10.3 mg/dL 7.8 (L) 7.9 (L) 7.9 (L) 7.2 (L) Phosphorus 2.1 - 4.7 mg/dL 3.4 3.1 3.4 2.8 Magnesium 1.5 - 2.5 mg/dL 1.3 (L) 1.6 1.7 1.7 Albumin 3.5 - 5.7 g/dL 2.8 (L) Calculated Osmolality, Serum 278 - 305 mOsm/kg 290 283 286 289 (L): Data is abnormally low (H): Data is abnormally high Latest Reference Range & Units 11/02/25 21:08 11/03/25 06:46 11/04/25 03:39 11/05/25 06:10 Alkaline Phosphatase 36 - 125 U/L 303 (H) 303 (H) 325 (H) 381 (H) AST (SGOT) 13 - 39 U/L 37 47 (H) 40 (H) 74 (H) ALT (SGPT) 7 - 52 U/L 62 (H) 59 (H) 56 (H) 65 (H) Albumin 3.5 - 5.7 g/dL 2.8 (L) 2.7 (L) 2.9 (L) 2.6 (L) Protein, Total 6.4 - 8.9 g/dL 5.4 (L) 5.1 (L) 5.9 (L) 5.0 (L) Bilirubin, Indirect 0.00 - 1.10 mg/dL 2.86 (H) 3.61 (H) 2.88 (H) 5.31 (H) Bili, Total 0.0 - 1.5 mg/dL 7.2 (H) 9.2 (H) 7.1 (H) 14.2 (H) Bilirubin, Direct 0.00 - 0.40 mg/dL 4.34 (H) 5.59 (H) 4.22 (H) 8.89 (H) (H): Data is abnormally high (L): Data is abnormally low Latest Reference Range & Units 11/03/25 13:52 11/03/25 21:14 11/04/25 03:39 11/05/25 06:10 WBC 3.8 - 10.8 10E3/uL 11.3 (H) 13.2 (H) 14.0 (H) 13.1 (H) RBC 4.20 - 5.80 10E6/uL 2.01 (L) 2.13 (L) 2.59 (L) 1.96 (L) Hemoglobin 13.2 - 17.1 g/dL 7.1 (L) 7.2 (L) 8.5 (L) 7.0 (L) Hematocrit 38.5 - 50.0 % 19.3 (L) 20.1 (L) 23.9 (L) 18.5 (L) MCV 80.0 - 100.0 fL 95.9 94.3 92.4 94.4 MCH 27.0 - 33.0 pg 35.2 (H) 33.6 (H) 33.0 35.4 (H) MCHC 32.0 - 36.0 g/dL 36.7 (H) 35.6 35.7 37.5 (H) RDW 11.0 - 15.0 % 17.3 (H) 17.9 (H) 17.8 (H) 18.0 (H) Platelet Count 140 - 400 10E3/uL 220 240 223 162 MPV 7.5 - 11.5 fL 7.5 7.6 7.5 7.7 PLT Morphology PLATELET MORPHO Myelocytes Relative 0.0 - 0.0 % 7.0 (H) Metamyelocytes Relative 0.0 - 0.0 % 2.0 (H) Neutrophils Relative 40.0 - 80.0 % 71.0 Lymphocytes Relative 15.0 - 45.0 % 10.0 (L) Monocytes Relative 0.0 - 12.0 % 5.0 Eosinophils Relative 0.0 - 8.0 % 4.0 Basophils Relative 0.0 - 1.0 % 1.0 nRBC 0 - 0 /100 WBC 10 (H) Absolute Myelocytes 0 - 0 /uL 917 (H) Metamyelocytes Absolute 0 - 0 /uL 262 (H) Neutrophils Absolute 1,520 - 8,640 /uL 9,301 (H) Absolute Lymphocytes 570 - 4,860 /uL 1,310 Monocytes Absolute 0 - 1,296 /uL 655 Eosinophils Absolute 0 - 864 /uL 524 Basophils Absolute 0 - 108 /uL 131 (H) Macrocytosis PRES Microcytosis PRES Polychromasia INC Haptoglobin 44 - 215 mg/dL <30 (L) <30 (L) (H): Data is abnormally high (L): Data is abnormally low 11/03/2025 CT A/P: FINDINGS: Lower Chest: Mild bibasilar atelectasis. Scattered pulmonary cysts. No focal consolidation or pleural effusion. Cardiomegaly. Liver: Status post orthotopic liver transplant. Periportal edema. There are multiple linear and wedge-shaped areas of hypoattenuation predominantly involving hepatic segments 7, 8 and 2. No focally suspicious hepatic lesion. Biliary tree: Gallbladder surgically absent. No dilatation of intra or extrahepatic biliary ducts. Spleen: Spleen is enlarged measuring 14.5 cm in maximal axial dimension. Pancreas: Pancreas enhances homogenously. No pancreatic ductal dilation. Adrenal glands: No focal nodule seen. Kidneys/Ureters/Bladder: Delayed left nephrogram with cortical atrophy and large obstructing calculus in the renal pelvis (series 305, image 153). The large obstructing calculus in the left renal pelvis is similar when compared to the outside CT. Additional nonobstructive punctate calculi are also seen in the left kidney. Left-sided urothelial thickening and stranding adjacent to the calyces, renal pelvis, and proximal left ureter are similar to the previous outside CT.Normal size and enhancement of the right kidney. Bladder diverticula. Gastrointestinal tract: Small sliding-type hiatal hernia. The gastrointestinal tract is normal in caliber and wall thickness. The appendix is normal. Lymphatics: Prominent periportal lymph node measuring 1 cm in short axis. Vasculature: Post left renal vein ligation with thrombus seen in the left renal vein (series 305, image 142) with partial thrombosis seen in spontaneous left spinal renal shunt (series 305, image 120). Thrombus is also seen in the collateral vessels in the left upper quadrant (for example, series 603, image 68). The transplant arterial anastomosis appears patent. The portal and hepatic veins are patent. Peritoneum/Retroperitoneum: Loculated fluid in the medial aspect of the hepatic transplant (series 308, image 83) measures 6.1 x 3.4 cm. Small amount of fluid along the right anterior pararenal space. Small volume ascites along the right colic gutter and pelvis. Tiny focus of free air (series 305, image 39) may be postsurgical in etiology. Genital Organs: Prostate is not enlarged. Abdominal wall/Soft tissues: Mild postsurgical scarring/edema along the ventral abdominal wall. Osseous structures: No acute osseous abnormalities or suspicious osseous lesions. IMPRESSION: 1. Status post orthotopic liver transplant with multiple linear wedge-shaped areas of hypoenhancement concerning for multiple acute infarcts involving hepatic segments 8, 7 and 2. The transplant vasculature appears patent. 2. Postoperative changes of left renal vein ligation with thrombus seen in the left renal vein and extending into the splenorenal shunt with delayed left nephrogram. 3. Thrombus is also seen in the collateral vessels in the left upper quadrant. 4. Large obstructing calculus in the renal pelvis on the left with urothelial thickening and stranding adjacent to the calyces, renal pelvis, and proximal left ureter are similar to the previous outside CT. 5. Loculated fluid in the medial aspect of the hepatic transplant. Small volume ascites. Tiny focusof free air may be postsurgical in etiology. Assessment/Plan: Mr. David Serrano is a 65 yo male with history of HTN and ETOH and A1AT disorder cirrhosis d/c ascites and HE S/p OLT 10/17/2025, post-op course notable for ligation of L renal vein for portal flow modulation and NAC, discharged 10/22 who was direct admitted for hyperbilirubinemia on outside labs. Advanced GI consulted for further evaluation of hyperbilirubinemia. #Hyperbilirubinemia #Elevated LFTs # Hx ETOD/A1AT cirrhosis S/p OLT 10/17 - Patient direct admitted for evaluation of hyperbilirubinemia, concerning for obstruction vs stricture - S/P ERCP 11/04 with moderate biliary anastomotic stricture. Sphincterotomy preformed. A 10 Fr x 5cm double pigtail biliary stent was placed. Prophylactic PD stent was placed - Post procedure T bili is up to 14.2 (7.1), direct > indirect with cholestatic pattern of elevation - Going for liver biopsy today with hepatology - Full liquid diet, advance as tolerated per primary - Monitor CBC and LFTs - ABD x-ray in 2 weeks to evaluate for spontaneous migration of PD stent, if still present will need EGD for removal - Referral sent for repeat ERCP in 2 months for stent removal/exchange - Transplanst surgery team following Patient discussed and chart reviewed with advanced GI attending, Dr. Irene Nevarez, ERICA Pancreas/Biliary team * Keith Novak MD - 11/04/2025 9:12 AM EST Transplant Surgery Progress Note Patient: David Serrano Admit Date: 11/02/2025 Transplant date: s/p OLT 10/17/25 SUBJECTIVE NAEON VSS. ERCP today OBJECTIVE Vitals: Temp: [97.8 ??F (36.6 ??C)-98.7 ??F (37.1 ??C)] 97.8 ??F (36.6 ??C) Heart Rate: [68-80] 73 Resp: [16-18] 18 BP: (89-110)/(44-68) 99/59 I/O last 3 completed shifts: In: 1535 [P.O.:360; Blood:1175] Out: 2225 [Urine:2225] Physical Exam: Gen: NAD Neuro: Aox3, nonfocal HEENT: atrauamtic, bilateral scleral icterus, PERRL, outer ears normal, no nasal drainage, moist oral membranes CV: RRR, normotensive Resp: no respiratory distress Abd: Soft, NT/ND Ext: Wwp : Voids spontaneously Labs: Recent Labs 11/03/25 1352 11/03/25 2114 11/04/25 0339 WBC 11.3* 13.2* 14.0* HGB 7.1* 7.2* 8.5* PLT 220 240 223 Recent Labs 11/02/25210711/03/25 0646 11/04/25 0339 NA 132* 133 136 K 4.6 3.9 4.2 CL 103 105 106 CO2 22 21 23 BUN 29* 25 19 CREATININE 1.17 1.00 1.04 CALCIUM 7.8* 7.9* 7.9* MG 1.3* 1.6 1.7 PHOS 3.4 3.1 3.4 Recent Labs 11/02/258 11/03/25 0646 11/04/25 0339 AST 37 47* 40* ALT 62* 59* 56* ALKPHOS 303* 303* 325* BILITOT 7.2* 9.2* 7.1* BILIDIRECT 4.34* 5.59* 4.22* ALBUMIN 2.8* 2.8* 2.7* 2.9* No results for input(s): INR , PROTIME , PTT in the last 72 hours. No results for input(s): POCGLU in the last 72 hours. Invalid input(s): GLU Current Medications: Scheduled Meds: acetaminophen 975 mg Oral Q8H acyclovir 800 mg Oral BID heparin 5,000 Units Subcutaneous 3 times per day indomethacin 50 mg Rectal Once insulin regular 0-12 Units Subcutaneous Q6H Scheduled methocarbamoL 500 mg Oral BID mycophenolate 500 mg Oral BID [Held by provider] NIFEdipine 30 mg Oral Daily 0900 pantoprazole 40 mg Oral QAM AC piperacillin-tazobactam (ZOSYN) IV extended interval 3.375 g Intravenous Q8H predniSONE 20 mg Oral Daily 0900 sulfamethoxazole-trimethoprim 1 tablet Oral Daily 0900 tacrolimus 5 mg Oral BID Continuous Infusions: electrolyte 75 mL/hr (11/04/25 0216) sodium chloride 0.9 % 20 mL/hr (11/03/25 2319) PRN Meds: dextrose 10% in water OR dextrose 10% in water, glucose ASSESSMENT/PLAN David Serrano is a 65 y.o. 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 Post op course notable for ligation of L renal vein for portal flow modulation and NAC who presents as a direct admit for hyperbilirubinemia on outpatient labs. PLAN: -ERCP today for elevated bilirubin CV: HDS PULM: RA, encourage IS/OOB FEN/GI: Reg diet /RENAL: good UOP, Cr stable HEME: HCT/ Hgb 23.9; 8.5 2 units PRBC. Passenger lymphocyte syndrom? Donor O and patient A. Transfuse with only type A blood. Hapto and LDH ( though will be skewed given transfusion prior ). Trend. Will plan for slide request. ID: bactrim, acyclovir - Zosyn started empirically pre-ERCP IS: tacro, MMF, pred taper ENDO: HDSSI PPX: SQH, PPI DISPO: floor Final plan per attending physician KEITH NOVAK MD Transplant Surgery 11/04/2025 Cosigned by Vani Winkler MD at 11/04/2025 2:07 PM EST Associated attestation - Vani Winkler MD - 11/04/2025 2:07 PM EST I have personally seen and examined this patient on 11/04/2025. I have discussed the patient's carewith the ELÍAS/resident team. I agree with the ELÍAS/resident???s findings and plan as documented in the ELÍAS/resident???s note. Immunosuppression reviewed and discussed with multidisciplinary team. AFVSS Tbili elevated Hgb responded after 3U PRBC Duplex and CT normal ERCP today IS: tacro, mmf, prednisone Abx Vani Winkler MD PhD Transplant Surgery * Keith Grimm, FUR TAILOR - 11/03/2025 9:00 AM EST Transplant Surgery Progress Note Patient: David Serrano Admit Date: 11/02/2025 Transplant date: s/p OLT 10/17/25 SUBJECTIVE Awake and alert. No distress. Getting 2 units PRBC this morning for acute Hgb drop. No complaints. Up ad aris in room. Remains on IS/ monitoring. OBJECTIVE Vitals: Temp: [97.5 ??F (36.4 ??C)-98.7 ??F (37.1 ??C)] 97.8 ??F (36.6 ??C) Heart Rate: [72-85] 72 Resp: [16-18] 16 BP: (82-113)/(42-60) 86/46 I/O last 3 completed shifts: In: 400 [Blood:400] Out: 700 [Urine:700] Physical Exam: Gen: NAD Neuro: Aox3, nonfocal HEENT: atrauamtic, bilateral scleral icterus, PERRL, outer ears normal, no nasal drainage, moist oral membranes CV: RRR, normotensive Resp: no respiratory distress Abd: Soft, NT/ND Ext: Wwp : Voids spontaneously Labs: Recent Labs 11/01/25 0705 11/02/252107 WBC 13.2 12.2* HGB 7.7* 5.7* PLT 122 266 Recent Labs 11/01/25 0705 11/02/25 2108 11/03/25 0646 NA 132 132* 133 K 4.3 4.6 3.9 CL 104 103 105 CO2 27* 22 21 BUN 24 29* 25 CREATININE 0.90 1.17 1.00 CALCIUM 8.1 7.8* 7.9* MG -- 1.3* 1.6 PHOS 3.1 3.4 3.1 Recent Labs 11/01/25 0705 11/02/25210711/03/25 0646 AST 87 37 47* ALT 96 62* 59* ALKPHOS 335 303* 303* BILITOT 7.4 7.2* 9.2* BILIDIRECT 4.8 4.34* 5.59* ALBUMIN 2.9* 2.8* 2.8* 2.7* No results for input(s): INR , PROTIME , PTT in the last 72 hours. No results for input(s): POCGLU in the last 72 hours. Invalid input(s): GLU Current Medications: Scheduled Meds: acetaminophen 975 mg Oral Q8H acyclovir 800 mg Oral BID heparin 5,000 Units Subcutaneous 3 times per day insulin regular 0-12 Units Subcutaneous Q6H Scheduled methocarbamoL 500 mg Oral BID mycophenolate 500 mg Oral BID [Held by provider] NIFEdipine 30 mg Oral Daily 0900 pantoprazole 40 mg Oral QAM AC predniSONE 20 mg Oral Daily 0900 sulfamethoxazole-trimethoprim 1 tablet Oral Daily 0900 tacrolimus 5 mg Oral BID Continuous Infusions: sodium chloride 0.9 % PRN Meds: dextrose 10% in water OR dextrose 10% in water, glucose ASSESSMENT/PLAN David Serrano is a 65 y.o. 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 Post op course notable for ligation of L renal vein for portal flow modulation and NAC who presents as a direct admit for hyperbilirubinemia on outpatient labs. PLAN: - 2 units PRBC - consult GI for ERCP - monitor LFTs - trend H&H - send LDH and Hapto - NPO at midnight for ERCP in am. If ERCP negative, will plan for EUS w/ bx. CV: HDS PULM: RA, encourage IS/OOB FEN/GI: Reg diet /RENAL: good UOP, Cr stable HEME: HCT/ Hgb 17.2; 6.2 2 units PRBC. Passenger lymphocyte syndrom? Donor O and patient A. Transfuse with only type A blood. Hapto and LDH ( though will be skewed given transfusion prior ). Trend. Will plan for slide request. ID: bactrim, acyclovir - Zosyn started empirically pre-ERCP IS: tacro, MMF, pred taper ENDO: HDSSI PPX: SQH, PPI DISPO: floor Final plan per attending physician Keith Grimm CNP Transplant Surgery 11/03/2025 Cosigned by Vani Winkler MD at 11/03/2025 10:24 PM EST Associated attestation - Vani Winkler MD - 11/03/2025 10:24 PM EST I have personally seen and examined this patient on 11/03/2025. I have discussed the patient's carewith the ELÍAS/resident team. I agree with the ELÍAS/resident???s findings and plan as documented in the ELÍAS/resident???s note. Immunosuppression reviewed and discussed with multidisciplinary team. AFVSS Tbili elevated Hgb 5.7- 2U PRBC Cr normal Reg diet Duplex and CT normal HSQ IS: tacro, mmf, prednisone Ercp and workup for PALS Vani Winkler MD PhD Transplant Surgery * Starla Gomez RN - 11/02/2025 10:40 PM EST 11/02/25 2240 Peripheral IV 11/02/25 Anterior;Right Forearm Ultrasound Guided Placement Date/Time: 11/02/252239 Size (Gauge): 20 G Orientation: Anterior;Right Location: ForearmLocal Anesthetic: None Inserted by: SILVIO Gomezhealthcare administration intern Insertion Method: Ultrasound Guided Insertion attempts: 1 Patient Tolerance: Tolerated ... Site Assessment No problems identified Line Status Blood return noted;Flushed;Saline locked;Capped Dressing Status Clean;Dry;Intact Dressing Intervention New dressing Stat RN received call for help with USGPIV placement. 20G placed in patient's right forearm. Blood return noted. No issues with insertion. documented in this encounter H&P Notes * Pedro Pinzon MD - 11/05/2025 10:08 AM EST [facility] PRE-SEDATION ASSESSMENT, HISTORY & PHYSICAL Date: 11/05/2025 David Serrano is a 65 y.o. 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 Last Dose acetaminophen (TYLENOL) 325 MG tablet Take 3 [...] mouth 3 times a day as needed. mycophenolate (CELLCEPT) 250 mg capsule Take 2 [...] constipation. predniSONE (DELTASONE) 5 MG tablet Take 6 [...] total) by mouth 2 times a day. Allergies: Lisinopril Abbreviated Review of Systems (ROS) Functional Capacity: [place] ACTIVITY SCALE: 3 - Walking on a flat surface for one or two blocks. Chest Pain: no Shortness of Breath/Dyspnea or Exertion: no Recent URI: no Airway, ASA Score & Sedation Specific History Concerns Mallampati: II ASA Score: III - Moderate systematic disease with functional limitations Sedation-Specific History Concerns: None This patient was re-evaluated immediately prior to sedation administration. Focused Physical Exam: Height ; Weight ; BMI Body mass index is 27.41 kg/m??. Vitals: 11/05/25 0808 BP: 94/56 Pulse: 76 Resp: 17 Temp: 98.3 ??F (36.8 ??C) SpO2: 98% Neuro: A&O Cardiovascular: RRR Respiratory: nonlabored on RA Sedation Plan: moderate Antibiotic prophylaxis is not indicated. [1] Patient Active Problem List Diagnosis Alcoholic cirrhosis (CMS-HCC) Ascites Hepatic encephalopathy (CMS-HCC) Esophageal varices (CMS-HCC) Pre-transplant evaluation for chronic liver disease Encounter for pre-transplant evaluation for liver transplant Cosigned by Nigel Reaves MD at 11/05/2025 10:43 AM EST Associated attestation - Nigel Reaves MD - 11/05/2025 10:43 AM EST Attending Physician's Note: I have personally seen and examined the patient, reviewed the chart, imaging and labs and have discussed the case with Dr. Pinzon, agree with his note and confirm it. GI and Hepatology Staff * Rubio Reid MD - 11/04/2025 8:06 AM EST [facility] PRE-SEDATION ASSESSMENT, HISTORY & PHYSICAL Date: 11/04/2025 David Serrano is a 65 y.o. 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 Last Dose acetaminophen (TYLENOL) 325 MG tablet Take 3 [...] mouth 3 times a day as needed. mycophenolate (CELLCEPT) 250 mg capsule Take 2 [...] constipation. predniSONE (DELTASONE) 5 MG tablet Take 6 [...] total) by mouth 2 times a day. Allergies: Lisinopril Abbreviated Review of Systems (ROS) Functional Capacity: [place]ON ACTIVITY SCALE: 3 - Walking on a flat surface for one or two blocks. Chest Pain: no Shortness of Breath/Dyspnea or Exertion: no Recent URI: no Airway, ASA Score & Sedation Specific History Concerns Airway - 2 ASA - 3 Focused Physical Exam: Height ; Weight ; BMI Body mass index is 27.41 kg/m??. Vitals: 11/04/25 0207 BP: 102/68 Pulse: 68 Resp: 18 Temp: 98.4 ??F (36.9 ??C) SpO2: 95% Neuro: AAO X 3 Cardiovascular: S1 and S2 heard Respiratory: B/l AE present Sedation Plan: General Antibiotic prophylaxis is indicated. [1] Patient Active Problem List Diagnosis Alcoholic cirrhosis (CMS-HCC) Ascites Hepatic encephalopathy (CMS-HCC) Esophageal varices (CMS-HCC) Pre-transplant evaluation for chronic liver disease Encounter for pre-transplant evaluation for liver transplant Cosigned by Matheus Bonilla MD at 11/04/2025 1:12 PM EST Associated attestation - Matheus Bonilla MD - 11/04/2025 1:12 PM EST I personally saw, examined and evaluated the patient. The chart was reviewed thoroughly. I have discussed the case with the GI fellow and agree with their findings, impression and plan as documented in their note. Matheus Bonilla MD * Aspen Parr MD - 11/02/2025 7:00 PM EST Transplant Surgery History and Physical Patient: David Serrano CSN: [id number] Requesting Physician: Dr. Winkler History CC: hyperbilirubinemia HPI: David Serrano is a 65 y.o. 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 Post op course notable for ligation of L renal vein for portal flow modulation and NAC who presents as a direct admit for hyperbilirubinemia on outpatient labs. Patient denies all complaints other than fatigue and jaundice. 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 Last Dose acetaminophen (TYLENOL) 325 MG tablet Take 3 [...] than 349 mg/dL = 5 units lancets [facility] [place] [facility] Use to test blood sugar four times a day. methocarbamoL (ROBAXIN) 500 MG tablet Take 1 tablet (500 mg total) by mouth 3 times a day as needed. mycophenolate (CELLCEPT) 250 mg capsule Take 2 [...] constipation. predniSONE (DELTASONE) 5 MG tablet Take 6 [...] total) by mouth 2 times a day. Allergies: Lisinopril SH: Social History Socioeconomic History [...] at all Food Insecurity: No Food Insecurity (11/02/2025) Hunger Vital Sign Worried About Running Out of Food in the Last Year: Never true Ran Out of Food in the Last Year: Never true Transportation Needs: No Transportation Needs (11/02/2025) PRAPARE - Transportation Lack of Transportation (Medical): No Lack of Transportation (Non-Medical): No Physical Activity: Inactive (06/15/2025) Received from [facility] Exercise Vital Sign On average, how many days per week do you engage in moderate to strenuous exercise (like a brisk walk)?: 0 days On average, how many minutes do you engage in exercise at this level?: 0 min Stress: No Stress Concern Present (06/15/2025) Received from [facility] [employer] [place] [employer] - Occupational Stress Questionnaire Do you feel stress - tense, restless, nervous, or anxious, or unable to sleep at night because yourmind is troubled all the time - these days?: Only a little Social Connections: Socially Integrated (06/15/2025) Received from [facility] Social Connection and Isolation Panel In a typical week, how many times do you talk on the phone with family, friends, or neighbors?: More than three times a week How often do you get together with friends or relatives?: More than three times a week How often do you attend sikh or yazdanism services?: More than 4 times per year Do you belong to any clubs or organizations such as sikh groups, unions, fraternal or athletic groups, or school groups?: Yes Attends Club or Organization Meetings: Not on file Are you , , , , never , or living with a partner?: Intimate Partner Violence: Not At Risk (11/02/2025) Humiliation, Afraid, Rape, and Kick questionnaire Fear of Current or Ex-Partner: No Emotionally Abused: No Physically Abused: No Sexually Abused: No Housing Stability: Low Risk (11/02/2025) Housing Stability Vital Sign Unable to Pay for Housing in the Last Year: No Number of Times Moved in the Last Year: 0 Homeless in the Last Year: No FH: No family history on file. ROS: Review of Systems Constitutional: Positive for fatigue. Negative for activity change, chills and fever. Eyes: Negative for pain and itching. Respiratory: Negative for chest tightness and shortness of breath. Cardiovascular: Negative for chest pain and palpitations. Gastrointestinal: Positive for diarrhea. Negative for abdominal distention, abdominal pain, nausea and vomiting. Genitourinary: Negative for dysuria and flank pain. Musculoskeletal: Negative for arthralgias, back pain, joint swelling, neck pain and neck stiffness. Skin: Negative for rash and wound. Neurological: Negative for tremors and weakness. Psychiatric/Behavioral: Negative for agitation and behavioral problems. Vital Signs Temp: [97.5 ??F (36.4 ??C)-98.1 ??F (36.7 ??C)] 98.1 ??F (36.7 ??C) Heart Rate: [80-85] 80 Resp: [16] 16 BP: (101-106)/(50-53) 101/53 Vitals: 11/02/25 1900 BP: 101/53 Pulse: 80 Resp: 16 Temp: 98.1 ??F (36.7 ??C) SpO2: 97% Physical Exam Physical Exam Constitutional: General: He [...] soft. Tenderness: There is no abdominal tenderness. Comments: Incision healing well w/ radha in place Musculoskeletal: General: Normal range of motion. Cervical back: Normal range of motion. Skin: General: Skin is warm. Capillary Refill: Capillary refill takes less than 2 seconds. Coloration: Skin is jaundiced. Neurological: General: No focal deficit present. Mental Status: He is alert and oriented to person, place, and time. Psychiatric: Mood and Affect: Mood normal. Behavior: Behavior normal. Laboratory Data Invalid input(s): CO2ART , HBO2PE Lab 11/01/25 0705 10/30/25 0807 10/29/25 0749 WBC 13.2 7.8 10.3 HEMOGLOBIN 7.7* 10.1* 10.1* HEMATOCRIT 22.9* 27.2* 28.9* MEAN CORPUSCULAR VOLUME 94.2 101.7* 102.5 PLATELETS 122 159 145 Lab 11/01/25 0705 10/30/25 0807 10/29/25 0749 SODIUM 132 138 137 POTASSIUM 4.3 4.5 3.9 CHLORIDE 104 101 102 CO2 27* 29 29* BUN 24 17 13 CREATININE 0.90 0.90 0.90 GLUCOSE -- 124* 107 CALCIUM 8.1 7.9* 7.6 PHOSPHORUS 3.1 3.9 3.7 Lab 11/01/25 0705 10/30/25 0807 10/29/25 0749 ALT 96 88* 138 AST 87 39 55 ALK PHOS 335 281* 319 BILIRUBIN TOTAL 7.4 2.4* 1.4 BILIRUBIN DIRECT 4.8 1.36* 0.7 ALBUMIN 2.9* 2.9* 2.8* ALBUMINKID -- 2.9* -- Imaging Studies No results found. Assessment and Plan David Serrano is a 65 y.o. 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 Post op course notable for ligation of L renal vein for portal flow modulation and NAC who is a direct admit for hyperbilirubinemia. OLT Hyperbilirubinemia Elevated MPV velocity on POD 5 US - repeat liver u/s - consider MRCP - bcx, ua, txp infectious w/u, stool studies - tylenol, prn robaxin Immune suppression - tacrolimus 5 mg BID and cellcept 500 mg BID and prednisone 20 mg daily - target tacro level closer to 10 - bactrim until 01/15, valcyte until 11/17 DM - SSI HTN - continue nifedipine 30 mg daily SQH Floor ASPEN PARR MD [facility] General Surgery Cosigned by Vani Winkler MD at 11/02/2025 9:04 PM EST Associated attestation - Vani Winkler MD - 11/02/2025 9:04 PM EST I have personally seen and examined this patient on 11/02/2025. I have discussed the patient's carewith the ELÍAS/resident team. I agree with the ELÍAS/resident???s findings and plan as documented in the ELÍAS/resident???s note. Immunosuppression reviewed and discussed with multidisciplinary team. Vani Winkler MD PhD Transplant Surgery documented in this encounter Procedure Notes * Nigel Reaves MD - 11/05/2025 11:35 AM EST [id number] Procedure Date: 11/05/2025 11:35 AM Patient Name: David Serrano Date of : 1960 Admit Type: Inpatient Age: 65 Gender: Male Note Status: Finalized Attending MD: Nigel Reaves MD, [id number] Procedure: Liver biopsy Indications: Abnormal Liver enzymes (no detail) Providers: Nigel Reaves MD, Pedro Pinzon MD (Fellow) Referring MD: Vani Winkler Medicines: 1% Lidocaine 9 mL SubQ, Fentanyl 50 mcg IV, Midazolam 2 mg IV Complications: No immediate complications. Procedure: Pre-Anesthesia Assessment: - Prior to the procedure, a History and Physical was performed, and patient medications and allergies were reviewed. The patient is competent. The risks and benefits of the procedure and the sedation options and risks were discussed with the patient. All questions were answered and informed consent was obtained. Patient identification and proposed procedure were verified by the physician, the nurse and the plating technician in the procedure room. Mental Status Examination: alert and oriented. Airway Examination: Mallampati Class II (the uvula but not tonsillar pillars visualized). Respiratory Examination: Non-labored breathing on room air. CV Examination: regular rate and rhythm. Prophylactic Antibiotics: The patient does not require prophylactic antibiotics. Prior Anticoagulants: The patient has taken no anticoagulant or antiplatelet agents. ASA Grade Assessment: III - A patient with severe systemic disease. After reviewing the risks and benefits, the patient was deemed in satisfactory condition to undergo the procedure. The anesthesia plan was to use moderate sedation / analgesia (conscious sedation). Immediately prior to administration of medications, the patient was re-assessed for adequacy to receive sedatives. The heart rate, respiratory rate, oxygen saturations, blood pressure, adequacy of pulmonary ventilation, and response to care were monitored throughout the procedure. The physical status of the patient was re-assessed after the procedure. Informed consent was obtained. Aseptic technique was used. The point of maximal dullness was determined by percussion. 1% Lidocaine local anesthesia was injected. The depth of the liver was confirmed.The liver biopsy was accomplished without difficulty. The patient tolerated the procedure well. Findings: A 30 mm fragmented core of tissue was obtained. The specimen was prepared with formalin and sent for histology. One pass 16 gauge in diameter was made with the [id number] gun using ultrasound to jamie the site. Verification of patient identification for the specimen was done. Estimated blood loss was minimal. Estimated Blood Loss: Estimated blood loss was minimal. Moderate Sedation: Moderate (conscious) sedation was administered by the nurse and supervised by the endoscopist. The patient's oxygen saturation, heart rate, blood pressure and response to care were monitored. Total physician intraservice time was 10 minutes. Impression: - Tissue was submitted to pathology. Recommendation: - Monitor for bleeding with site checks and vital ?signs: Q5 min x3, q15 min x4, q30 min x4. The patient can remain on his back or R side. At two hours, the patient may sit up and sip clear liquids. ?If vital signs are stable with no evidence of hemorrhage, the patient may return to hospital [facility] for ongoing care.? Resume regular diet as tolerated.? ?Follow-up on the results of the biopsy specimen. Follow-up with referring physician. Procedure Code(s): --- Professional --- 66293, GC, Biopsy of liver, needle; percutaneous 74015, GC, Ultrasonic guidance for needle placement (eg, biopsy, aspiration, injection, localization device), imaging supervision and interpretation 93739, GC, Moderate sedation services provided by the same physician or other qualified health career services assistant performing the diagnostic or therapeutic service that the sedation supports, requiring the presence of an independent trained observer to assist in the monitoring of the patient's level of consciousness and physiological status; initial 15 minutes of intraservice time, patient age 5 years or older Diagnosis Code(s): --- Professional --- R74.9, Abnormal serum enzyme level, unspecified CPT copyright 2022 [employer]. All rights reserved. The codes documented in this report are preliminary and upon sheet metal technician review may be revised to meet current compliance requirements. Attending Participation: I was present and participated during the entire procedure, including non-carcamo portions. Nigel Reaves MD Nigel Reaves MD 11/05/2025 2:47:17 PM This report has been signed electronically.MD Sherley Ross MD Pedro Pinzon MD 11/05/2025 11:40:[address] [place] [address], [id number] * Nigel Reaves MD - 11/05/2025 11:23 AM EST LIVER BIOPSY Brief Op Note David Serrano 11/02/2025 - 11/05/2025 Pre-op Diagnosis: Hyperbilirubinemia [E80.6] Post-op Diagnosis: Elevated LFTs Procedure(s): LIVER BIOPSY (percutaneous), 1 pass with 16 G needle using Ultrasound to jamie site Surgeon(s): Nigel Reaves MD Anesthesia: Moderate Sedation Staff: Fellow: Pedro Pinzon MD Endoscopy Nurse: Manohar Brown RN; Cony Lu RN Delivery Truck Driver: Jeffry Mata Estimated Blood Loss: Minimal Specimens: Specimens ID Description Commments Type Source Tests Collected By Collected At A liver bx Tissue Liver SURGICAL PATHOLOGY EXAM Nigel Reaves MD 11/05/25 1121 Drains: There were no complications unless listed below. NIGEL REAVES MD Date: 11/05/2025 Time: 11:32 AM * Rubio Reid MD - 11/04/2025 9:55 AM EST ERCP, EUS UPPER AND EGD Brief Op Note David Serrano 11/02/2025 - 11/04/2025 Pre-op Diagnosis: Post transplant elevated liver enzymes Post-op Diagnosis: Moderate biliary anastomotic stricture Sphincterotomy performed 10 fr x 5 cm double pigtail plastic biliary stent placed Prophylactic PD stent placed Full liquid diet and advance as tolerated Monitor CBC and LFT's Abd xray at 2weeks to evaluate for spontaneous migration of PD stent, if still present EGD for removal of PD stent Repeat ERCP at 2 months for biliary stent removal/exchange Procedure(s): ERCP EUS UPPER AND EGD Surgeon(s): MD Matheus Palacios MD Anesthesia: General Staff: Endoscopy Nurse: Kenna Carver RN; Mary Caal RN Estimated Blood Loss: Minimal Specimens: Drains: [REMOVED] Drain LEFT DRAIN BAG OVER OLD GABBIE SITE Abdomen Left;Anterior (Removed) Number of days: 13 [REMOVED] Drain Abdomen Inferior;Lateral;Right (Removed) Number of days: 12 There were no complications unless listed below. RUBIO REID MD Date: 11/04/2025 Time: 11:10 AM Cosigned by Matheus Bonilla MD at 11/04/2025 1:12 PM EST Associated attestation - Matheus Bonilla MD - 11/04/2025 1:12 PM EST I personally saw, examined and evaluated the patient. The chart was reviewed thoroughly. I have discussed the case with the GI fellow and agree with their findings, impression and plan as documented in their note. Matheus Bonilla MD documented in this encounter Consult Notes * Lili Rodriguez RN - 11/06/2025 11:11 AM ESTAssociated Order(s): IP Consult to [facility]GPIV IP Consult to UGPIV Consult performed by: Lili Rodriguez RN Consult ordered by: Vani Winkler MD Assessment/Recommendations: Patient has 2 PIVs charted on flowsheets, this is adequate access for medications listed on JAN. 2 medications are compatible per [employer]. * Jamie Warner MD - 11/05/2025 2:54 PM ESTAssociated Order(s): IP CONSULT TO HEMATOLOGY Images from the original note were not included. HEMATOLOGY ONCOLOGY INITIAL CONSULT NOTE History of Present Ilness Reason for consult: evaluation for hemolysis HPI: David Serrano is a 65 y.o. male on hospital day 2. Mr. 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 He is s/p ERCP 11/04, which revealed moderate biliary anastomotic stricture. Sphincterotomy was preformed. Direct Bilirubin was 5.59 on admission, and is now 8.89. indirect bilirubin is also rising to 5.31.AST and ALT are mildly elevated at 74 and 65 respectively. Haptoglobin <30 and LDH mildly elevated at 380. He is anemic with hgb as low as 5.7 on 11/02. Herequired 3 units, last given 11/04. With hgb up to 8.5, but most recently at 7 g/dL. He denies bleeding. He reports a family hx of beta-thalassemia. Review of Systems Review of Systems Gastrointestinal: Negative for abdominal pain. Skin: +jaundice Endo/Heme/Allergies: Does not bruise/bleed easily. 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 Past Surgical History has a past surgical history that includes Hernia repair; Liver transplantation (N/A, 10/17/2025); and ERCP (N/A, 11/04/2025). Past Family History family history is not on file. Social History reports that he has never smoked. He has quit using smokeless tobacco. He reports that he does not currently use alcohol. Allergies: Lisinopril Medications Current Facility-Administered Medications Medication Dose Frequency Provider Last Admin acetaminophen 975 mg Q8H Aspen Parr MD 975 mg at 11/05/25 0413 acyclovir 800 mg BID Aspen Parr MD 800 mg at 11/05/25 0830 calcium carbonate 500 mg TID PRN Lala Camilo MD 500 mg at 11/05/25 0022 dextrose 10% in water 12.5 g Q15 Min PRN Aspen Parr MD Or dextrose 10% in water 25 g Q15 Min PRN Aspen Parr MD electrolyte 75 mL/hr Continuous Keith Grimm CNP 75 mL/hr at 11/05/25 0021 fentaNYL glucose 12 g Q15 Min PRN Aspen Parr MD heparin 5,000 Units 3 times per day LAISHA Ferreira insulin regular 0-12 Units Q6H Scheduled LAISHA Ferreira methocarbamoL 500 mg BID Aspen Parr MD 500 mg at 11/05/25 0830 midazolam mycophenolate 500 mg BID Aspen Parr MD 500 mg at 11/05/25 0830 [Held by provider] NIFEdipine 30 mg Daily 0900 Aspen Parr MD pantoprazole 40 mg QAM AC Aspen Parr MD 40 mg at 11/05/25 0830 piperacillin-tazobactam (ZOSYN) IV extended interval 3.375 g Q8H Keith Grimm, ERICA 3.375 g at 11/05/25 0421 predniSONE 20 mg Daily 0900 Aspen Parr MD 20 mg at 11/05/25 0830 sodium chloride 0.9 % 20 mL/hr Continuous Sherrie Bittel, PA sodium chloride 0.9 % 50 mL/hr Continuous Breonna Villa MD 50 mL/hr at 11/05/25 1047 sodium chloride 0.9 % 20 mL/hr Continuous Sherrie Bittel, PA [Held by provider] sulfamethoxazole-trimethoprim 1 tablet Daily 0900 Aspen Parr MD 1 tablet at 11/04/25 1302 tacrolimus 5 mg BID Aspen Parr MD 5 mg at 11/05/25 0830 Physical Exam and Objective Findings Physician Exam Vitals: 11/05/25 1125 11/05/25 1130 11/05/25 1148 11/05/25 1200 BP: 111/66 112/72 107/67 110/59 BP Location: Patient Position: BP Cuff Size: Pulse: 70 72 71 Resp: 20 16 (!) 0 (!) 0 Temp: TempSrc: SpO2: 100% 100% (!) 88% 100% Weight: Height: Physical Exam Constitutional: General: He is not in acute distress. Appearance: Normal appearance. He is not ill-appearing. HENT: Head: Normocephalic and atraumatic. Eyes: General: Scleral icterus present. Extraocular Movements: Extraocular movements intact. Cardiovascular: Rate and Rhythm: Normal rate. Pulmonary: Effort: Pulmonary effort is normal. No respiratory distress. Abdominal: General: Abdomen is flat. Palpations: Abdomen is soft. Musculoskeletal: Right lower leg: No edema. Left lower leg: No edema. Skin: General: Skin is warm. Coloration: Skin is jaundiced. Neurological: General: No focal deficit present. Mental Status: He is alert and oriented to person, place, and time. Psychiatric: Mood and Affect: Mood normal. Behavior: Behavior normal. Laboratory Results Lab Results Component Value Date WBC 13.1 (H) 11/05/2025 HGB 7.0 (L) 11/05/2025 HCT 18.5 (L) 11/05/2025 MCV 94.4 11/05/2025 PLT 162 11/05/2025 Lab Results Component Value Date CREATININE 1.20 11/05/2025 Imaging IMPRESSION: 1. Status post orthotopic liver transplant with multiple linear wedge-shaped areas of hypoenhancement concerning for multiple acute infarcts involving hepatic segments 8, 7 and 2. The transplant vasculature appears patent. 2. Postoperative changes of left renal vein ligation with thrombus seen in the left renal vein and extending into the splenorenal shunt with delayed left nephrogram. 3. Thrombus is also seen in the collateral vessels in the left upper quadrant. 4. Large obstructing calculus in the renal pelvis on the left with urothelial thickening and stranding adjacent to the calyces, renal pelvis, and proximal left ureter are similar to the previous outside CT. 5. Loculated fluid in the medial aspect of the hepatic transplant. Small volume ascites. Tiny focusof free air may be postsurgical in etiology. Asssessment and Plan #Normocytic anemia #Hyperbilirubinemia #hx of OLT 10/17/25 History of alcohol related cirrhosis, C282Y heterozygote, alpha 1 antitrypsin and now s/p OLT October 2025. Hematology consulted for ? Hemolysis. He is presenting with significant hyperbilirubinemia (indirect and direct) and anemia. No reported bleeding. Haptoglobin <30, although he did get blood 11/03 and 11/04 and does have liver injury, which can both make haptoglobin undetectable. He has undergone liver bx to evaluate for rejection as well. Of note, he is on immunosuppression (prednisone and tacrolimus) which should theoretically reduce the chances of an autoimmune hemolytic anemia picture. On admission, he received CT abd/pelvis. There was wedge shaped areas of ?infarcts. Per discussion with transplant surgery, there was some thought that infarcts may be related to manipulation during prior surgery. Vasculature does appear patent by duplex. Of note, there is left renal vein thrombus with extension to splenorenal shunt, and a thrombus seen in the collateral vessels in the left upperquadrant. Could consider thrombosis of graft as etiology of liver injury Plan and recommendations - please check FRANSICO, retic count, smear and plasma free hemoglobin (best to draw smear from the CBC from 11/02 before he was given blood) - will follow liver bx, which was done 11/05. - Consider repeat CT abd/pelvis to evaluate for evolution of ? Thrombosis and consider anticoagulation with heparin drip. Thank you for this consult. We will continue to follow along. Please do not hesitate to call with questions or concerns. Patient seen and discussed with attending Dr. Carlos Warner MD Hematology/Oncology Fellow Cosigned by Bowen Gonzalez MD at 11/05/2025 3:22 PM EST Associated attestation - Bowen Gonzalez MD - 11/05/2025 3:22 PM EST ATTENDING I saw and examined the patient on 11/05/2025, personally confirmed carcamo findings from history, laboratory/imaging, reports from other providers, and the physical exam, and discussed the case with the fellow. I directed the plan and agree with the findings and plan as documented in the fellow???s note, with the additional comments as noted below. David Serrano is seen for severe anemia in the context of an ABO incompatible liver transplant.He does not have thrombocytopenia. He has a complex history including heterozygous states for hereditary hemochromatosis and alpha 1 antitrypsin. 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 He was seen in endoscopy talent acquisition program manager to his procedure. Physical exam is notable for scleral icterus. The patient is alert and responsive. Imaging shows some liver thrombosis which was reviewed by Dr. Warner with the transplant team who felt that it was a consequence of liver manipulation and not necessarily an indicator of vascular thrombosis/thrombophilia. The patient's ABO transplant status (O donor, A recipient) could put him at risk for passenger lymphocyte syndrome hemolysis although given his complex lab situation there may be other explanations for his laboratory findings, such as low haptoglobin from liver disease and hyperbilirubinemia from possibly from graft function. FRANSICO testing has been requested. He could also have severe anemia post transplant on immunosuppression from parvovirus. If so, he will have an extremely low reticulocyte count and after confirmation of parvovirus titers by PCR, would likely respond extremely well to intravenous immunoglobulin His liver biopsy results may be helpful in better understanding possible contributions of thrombosis or graft tatus to his anemia. His extremely elevated ferritin levels probably reflected the dysmetabolic iron status from [facility] since heterozygous hemochromatosis generally produces only mild elevations in laboratory studies without actual iron overload except in the context of severe liver disease for other reasons. By the report of his , his ferritin came down rapidly with phlebotomy, which would be consistent with a primary nonhemochromatosis/hepatic iron metabolism etiology. We will follow this very interesting patient with you. Bowen Gonzalez Jr., MD, MACP Professor & Dsp Engineer, Classical Hematology Arturo Penaloza MD Endowed Chair in Bleeding & Clotting * Breonna Villa MD - 11/05/2025 9:34 AM ESTAssociated Order(s): IP CONSULT TO LIVER HEPATOLOGY INITIAL CONSULT NOTE Consulted by: Vani Winkler MD Consult Question: Hyperbilirubinemia History of Present Illness: David Serrano is a 65 y.o. 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 Post op course notable for ligation of L renal vein for portal flow modulation and NAC otherwise post op course uncomplicated discharged on 10/22 who presented as direct admit for hyperbilirubinemia on opt labs. Complains of fatigue and jaundice. He was seen by advanced GI team over the weekend s/p ERCP 11/04 which showed Moderate biliary anastomotic stricture Sphincterotomy performed 10 fr x 5 cm double pigtail plastic biliary stent placed Prophylactic PD stent placed. Patient today with bilirubin up to 14 from 7. Hepatology team consulted for liver biopsy. Patient seen today denies new complains and is agreeable to biopsy. He is also being worked up for hemolysis. Review of Systems All systems reviewed and negative except as listed above in HPI. 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 No pertinent family history. Social History Tobacco Use Smoking status: Never Smokeless tobacco: Former Substance Use Topics Alcohol use: Not Currently Comment: Sober since February 2023 Allergies[1] Scheduled Meds: acetaminophen 975 mg Oral Q8H acyclovir 800 mg Oral BID [START ON 11/06/2025] atovaquone 1,500 mg Oral Daily 0900 fentaNYL heparin 5,000 Units Subcutaneous 3 times per day insulin lispro 0-10 Units Subcutaneous Nightly (2100) insulin lispro 0-12 Units Subcutaneous TID AC insulin lispro 5 Units Subcutaneous TID AC insulin NPH 10 Units Subcutaneous BID methocarbamoL 500 mg Oral BID methylprednisolone 500 mg Intravenous Once midazolam mycophenolate 500 mg Oral BID [Held by provider] NIFEdipine 30 mg Oral Daily 0900 pantoprazole 40 mg Oral QAM AC piperacillin-tazobactam (ZOSYN) IV extended interval 3.375 g Intravenous Q8H tacrolimus 5 mg Oral BID Continuous Infusions: electrolyte sodium chloride 0.9 % 20 mL/hr (11/05/25 1631) PRN Meds: calcium carbonate, dextrose 10% in water OR dextrose 10% in water, fentaNYL, glucose, midazolam, traMADol OR traMADol Prior to Admission Meds: Home Medications Medication Sig Taking? Last Dose acetaminophen (TYLENOL) 325 MG tablet Take 3 [...] than 349 mg/dL = 5 units lancets Mis Use to test blood sugar four times a day. methocarbamoL (ROBAXIN) 500 MG tablet Take 1 tablet (500 mg total) by mouth 3 times a day as needed. mycophenolate (CELLCEPT) 250 mg capsule Take 2 [...] constipation. predniSONE (DELTASONE) 5 MG tablet Take 6 [...] total) by mouth 2 times a day. Vitals: Temp: [97.6 ??F (36.4 ??C)-98.3 ??F (36.8 ??C)] 97.8 ??F (36.6 ??C) Heart Rate: [65-80] 72 Resp: [0-24] 18 BP: (85-118)/(53-72) 99/61 Intake/Output Summary (Last 24 hours) at 11/05/2025 1734 Last data filed at 11/05/2025 1713 Gross per 24 hour Intake 360 ml Output 1275 ml Net -915 ml Physical Exam Gen: NAD, resting in bed HEENT: Icteric sclera, EOMI Neck: Neck is supple. CV: RRR Lungs: Non-labored breathing Abdomen: Soft, nontender, nondistended, surgical scar with radha healing well. Extremities: No bilateral lower extremity edema, warm and well-perfused Skin: Jaundice Neuro: A&Ox3, no focal neuro deficits appreciated Psych: appropriate mood and affect Laboratory and Imaging: Reviewed MELD 3.0: 11 at 10/21/2025 6:35 AM Calculated from: Serum Creatinine: 0.96 mg/dL (Using min of 1 mg/dL) at 10/21/2025 6:35 AM Serum Sodium: 139 mmol/L (Using max of 137 mmol/L) at 10/21/2025 6:35 AM Total Bilirubin: 0.9 mg/dL (Using min of 1 mg/dL) at 10/21/2025 6:35 AM Serum Albumin: 2.2 g/dL at 10/21/2025 6:35 AM INR(ratio): 1.4 at 10/19/2025 11:03 PM Age at listing (hypothetical): 65 years Sex: Male at 10/21/2025 6:35 AM Assessment: David Serrano is a 65 y.o. 65 y.o. 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 Post op course notable for ligation of L renal vein for portal flow modulation and NAC otherwise post op course uncomplicated discharged on 10/22 who presented as direct admit for hyperbilirubinemia on opt labs. Hyperbilirubinemia S/p recent OLT Here with hyperbilirubinemia and jaundice Does not meet criteria for cholangitis (despite soft BP) CT imaging with no biliary dilation S/p ERCP showing stricture with stent placement despite that hyperbilirubinemia uptrended DDX: Ischemic liver injury, rejection, passenger lymphocyte syndrome given liver donor O type, GALE stenosis, less likely sepsis so far w/u negative. PLAN / RECOMMENDATIONS: NPO Plan for liver biopsy today Agree with hematology consult Continue current IS Rest of the care per primary team We will continue to follow along. If you have any questions, please contact the Liver fellow on-call. Plan discussed with Dr. Reaves. BREONNA VILLA MD Gastroenterology Fellow PGY4 [1] Allergies Allergen Reactions Lisinopril Other (See Comments) Cosigned by Ngiel Reaves MD at 11/05/2025 6:03 PM EST Associated attestation - Nigel Reaves MD - 11/05/2025 6:03 PM EST Attending Physician's Note: I have personally seen and examined the patient, reviewed the chart, imaging and labs and have discussed the case with Dr. Alvares, agree with her note and confirm it. Please see Dr. Alvares's note separately for more details. 65 y.o. 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 He was an A to Otransplant (blood type). Currently admitted with jaundice and evidence of hemolysis on labs requiring blood transfusions. LFTs significantly elevated. Underwent percutaneous liver biopsy this AM PE Vitals: 11/05/25 1457 11/05/25 1609 11/05/25 1701 11/05/25 1744 BP: 98/60 101/68 99/61 122/71 BP Location: Left upper arm Patient Position: Lying BP Cuff Size: Pulse: 73 68 72 73 Resp: 17 18 18 18 Temp: 98.1 ??F (36.7 ??C) 97.7 ??F (36.5 ??C) 97.8 ??F (36.6 ??C) 97.5 ??F (36.4 ??C) TempSrc: Oral SpO2: 96% 95% 97% 97% Weight: Height: In no apparent cardiopulmonary distress Sclera icteric Abdomen is soft, non-tender Alert and oriented times three, no tremors No LE edema A&P 65 y.o. year old male with complex medical issues as detailed in HPI. A to O transplant with hgih risk of rejection. 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 Will recommend 500 mg IV solumedrol today as per our protocol. Tacro goal level 8-12. MMF 500 BID. Hematology consult for hemolysis management. Discussed with Dr. Sydni Reaves MD GI and Hepatology Staff * Breonna Villa MD - 11/03/2025 5:25 PM ESTAssociated Order(s): IP CONSULT TO PANCREAS/BILIARY Gastroenterology Initial Consult Note Consulted by: Vani Winkler MD Consult Question: Hyperbilirubinemia History of Present Illness: David Serrano is a 65 y.o. 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 Post op course notable for ligation of L renal vein for portal flow modulation and NAC otherwise post op course uncomplicated discharged on 10/22 who presented as direct admit for hyperbilirubinemia on opt labs. Complains of fatigue and jaundice. Chart Review: -Vs: afebrile, BP 86/46, then improved Labs: Hypona 133, c 1 at bl, ALP 303, AST 47 ALT 59/62, T bili 9.2 from 7.2 from7.4 from 2.4 with mixed pattern D: 5.5. CBC leukocytosis 12.6, hgb 6.2 from 5.7 on admission bl 9-10. X2 PRBC this admission. - Micro: +ve burrell virus, possible UTI, BC NGTD from 11/02 - Imaging; CTAP Acute hepatic infarcts. Post left renal vein ligation with thrombus in the left renal vein and splenorenal shunt. Gallbladder surgically absent. No dilatation of intra or extrahepaticbiliary ducts. Procedures: planned for EGD 2025, not done? EGD 03/2023 small varices +PHG Meds: Acyclovir, Celllcept, Pred 20, Bactrim, tacro Upon my evaluation: Patient reports he woke up yesterday and noticed that he was jaundiced. Patient's measures hisvitals and they showed me a log of vitals with no fevers. He denies any abdominal pain. He felt fatigued. He denied any bright red blood in the stools or melena. Patient came into the hospital after his outpatient labs came back abnormal. Patient is agreeable to ERCP procedure if needed. Review of Systems All systems reviewed and negative except as listed above in HPI. Past Medical History: Diagnosis Date Epididymitis Hemochromatosis Hypertension Kidney stone Metabolic dysfunction-associated steatotic liver disease and increased alcohol intake (MetALD) Portal vein thrombosis UTI (urinary tract infection) Past Surgical History: Procedure Laterality Date HERNIA REPAIR LIVER TRANSPLANTATION N/A 10/17/2025 Procedure: TRANSPLANT LIVER; Surgeon: Vani Winkler MD; Location: [facility]; Service: Transplant; Laterality: N/A; No family history on file. Social History Tobacco Use Smoking status: Never Smokeless tobacco: Former Substance Use Topics Alcohol use: Not Currently Comment: Sober since February 2023 Allergies[1] Scheduled Meds: acetaminophen 975 mg Oral Q8H acyclovir 800 mg Oral BID heparin 5,000 Units Subcutaneous 3 times per day insulin regular 0-12 Units Subcutaneous Q6H Scheduled methocarbamoL 500 mg Oral BID mycophenolate 500 mg Oral BID [Held by provider] NIFEdipine 30 mg Oral Daily 0900 pantoprazole 40 mg Oral QAM AC piperacillin-tazobactam (ZOSYN) IV extended interval 3.375 g Intravenous Q8H predniSONE 20 mg Oral Daily 0900 sulfamethoxazole-trimethoprim 1 tablet Oral Daily 0900 tacrolimus 5 mg Oral BID Continuous Infusions: electrolyte 75 mL/hr (11/03/25 1142) PRN Meds: dextrose 10% in water OR dextrose 10% in water, glucose Prior to Admission Meds: Home Medications Medication Sig Taking? Last Dose acetaminophen (TYLENOL) 325 MG tablet Take 3 [...] mouth 3 times a day as needed. mycophenolate (CELLCEPT) 250 mg capsule Take 2 [...] constipation. predniSONE (DELTASONE) 5 MG tablet Take 6 [...] total) by mouth 2 times a day. Vitals: Temp: [97.8 ??F (36.6 ??C)-98.7 ??F (37.1 ??C)] 98.5 ??F (36.9 ??C) Heart Rate: [72-80] 76 Resp: [16-18] 18 BP: (82-113)/(42-67) 102/55 Intake/Output Summary (Last 24 hours) at 11/03/2025 1725 Last data filed at 11/03/2025 1523 Gross per 24 hour Intake 1223.33 ml Output 1400 ml Net -176.67 ml Physical Exam Gen: NAD, resting in bed HEENT: Icteric sclera, EOMI Neck: Neck is supple. CV: RRR Lungs: Non-labored breathing Abdomen: Soft, nontender, nondistended, surgical scar with radha healing well. Extremities: No bilateral lower extremity edema, warm and well-perfused Skin: Jaundice Neuro: A&Ox3, no focal neuro deficits appreciated Psych: appropriate mood and affect Labs and Imaging reviewed: Pertinent findings per HPI. Assessment: David Serrano is a 65 y.o. 65 y.o. 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 Post op course notable for ligation of L renal vein for portal flow modulation and NAC otherwise post op course uncomplicated discharged on 10/22 who presented as direct admit for hyperbilirubinemia on opt labs. Hyperbilirubinemia S/p recent OLT Here with hyperbilirubinemia and jaundice Does not meet criteria for cholangitis (despite soft BP) CT imaging with no biliary dilation DDX: rejection, bilary obstruction (sometimes not detected early on on CT), GALE stenosis, less likely sepsis so far w/u negative. PLAN / RECOMMENDATIONS: NPO after midnight Plan for ERCP/EUS with possible liver biopsy if ERCP non-revealing tomorrow AM Transfuse for Hgb >7, no current concern for GIB, work-up for hemolysis Trend LFTs IS management per primary team Rest of the care per primary team We will continue to follow along. If you have any questions, please contact the GI fellow on-call. Plan discussed with Dr. Bonilla. BREONNA VILLA MD Gastroenterology Fellow PGY4 [1] Allergies Allergen Reactions Lisinopril Other (See Comments) Cosigned by Matheus Bonilla MD at 11/05/2025 1:57 PM EST Associated attestation - Matheus Bonilla MD - 11/05/2025 1:57 PM EST I personally saw, examined and evaluated the patient. The chart was reviewed thoroughly. I have discussed the case with the GI fellow and agree with their findings, impression and plan as documented in their note. We will follow closely and have further recommendations pending findings and clinical progression. Please call if questions or to report change in status. Matheus Bonilla MD * Viv Ashby, RURAL CARRIER ASSOCIATE - 11/03/2025 2:08 PM EST [facility] Case Management/Social Work Department Brief Assessment Re-Admission within 30 days Planned or unplanned? Unplanned If planned: Reason? If unplanned: Reason? Hyperbilirubinemia Discuss with patient any barriers to prevent readmission? N/A Patient Information Admission diagnosis: Elevated LFTs and bili Demographic verified and updated as needed Support Systems Designated decision maker (POA or Next of Kin): Stacy Serrano Phone #: [phone] Relationship: Spouse Living Arrangements Prior to Hospitalization Per H&P, David Serrano is a 65 y.o. 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 Post op course notable for ligation of L renal vein for portal flow modulation and NAC who presents as a direct admit for hyperbilirubinemia on outpatient labs. Patient denies all complaints other than fatigue and jaundice. Patient recently discharged on 10/22 with [facility] through [facility] ([phone]) for PT/OT and SN (lab draws). Per previous assessment, Patient is a 65 year old male, and living with spouse in a home in [place], [place]. Patient reports ~2 steps into residence and 0 inside residence. Patient reports having 2 children Lan Serrano ([phone]) and Gloria Banegas ([phone]). Patient denies any concerns for safety or abuse at residence. Patient reported independencewith ADLs. Community Resources Prior to Hospitalization Home Health Care Services and Phone #: [facility] ([phone]) Home Respiratory Services: None Provider and Phone # Home O2: Baseline Liter Flow: BIPAP/CPAP: Nebulizer: Durable Medical Equipment: Cane available but does not use Discharge Plan Anticipated discharge plan: Pending clinical course Company Name(s) and Phone #: [employer] [facility] ([phone]) Anticipated discharge date: Pending clinical course Transportation at Discharge: Family Please contact CM/SW for any further discharge planning needs. Patient/Family aware and taking part in the discharge plan. Patient/family educated that once post-acute care needs have been identified, a provider list applicable to the identified post-acute care needs as well as the insurance provider will be provided, and patient/family have the freedom to choose their provider(s); financial interest(s) are disclosed as appropriate. MADHAV VERDIN, LINK WIRE FABRIC MACHINE TENDER Inpatient Primary Teaching Assistant Care Management Acute Care Surgery, Surgical Oncology, Colorectal Surgery, Thoracic, Vascular, Gynecology, Gynecology/Oncology, Breast, and Pulmonology Can be reached at [phone] or over Ob Hospitalist Group Secure Chat * Lili Rodriguez RN - 11/03/2025 11:19 AM ESTAssociated Order(s): IP Consult to [facility] IP Consult to [facility] Consult performed by: Lili Rodriguez RN Consult ordered by: Vani Winkler MD Assessment/Recommendations: Ultrasound guided peripheral access consult no longer needed. Patient has adequate access charted on Flowsheets. Call or re- consult [facility] team with any changes. documented in this encounter Nursing Notes * Noy Torres RN - 11/05/2025 8:48 AM EST Pt complaining of pain and states tylenol normally works, noticed tylenol was in med cup on computer desk not given so contacted night RN to confirm she did not give 4:13 am dose of tylenol which shestated she forgot to give tylenol dose. Spoke to MD for one time dose documented in this encounter Miscellaneous Notes * Plan of Care - Veronica Winter RN - 11/08/2025 2:34 PM EST Problem: Safety Goal: Patient will [...] policy, and non-skid footwear provided. Outcome: Progressing Problem: Patient will remain free of falls Goal: Elberta Fall Precautions Outcome: Progressing * Care Coordination - Monika Cheng - 11/08/2025 2:25 PM EST [facility] sent pt [facility] note and d/c summary to [facility] fax [phone]. Monika Cheng Cage Manager Bartender [facility] Care Management Services [phone] * Home Health Care Note - Zeferino Pyle MD - 11/08/2025 1:45 PM EST Images from the original note were not included. REFERRAL FOR HOME HEALTH SERVICES FORM Patient name: David Serrano Patient : 1960 Age: 65 y.o. Gender: male SSN: [id number] [address]: [address] [place] [address] Phone number: [phone] Patient emergency contact: Extended Emergency Contact Information Primary Emergency Contact: Stacy Serrano [address]: [address] [place] [address] Mobile Relation: Spouse Date of admission: 11/02/2025 Date of discharge: 11/08/2025 Attending provider: Vani Winkler MD Primary care physician: Dr. Chris Medel MD Code status: Prior Allergies: Allergies[1] Insurance Information Insurance Information [employer] Phone: -- Subscriber: David Serrano Subscriber#: [id number] Group#: [id number] Precert#: -- Authorization#: [id number] Effective Date: -- Diagnoses Present on Admission Primary Diagnosis: <principal problem not specified> Discharge Diagnosis : There are no hospital problems to display for this patient. Prognosis: good Rehabilitation potential: good Diet Diet/Nutrition Orders Diet Regular(7) Frequency: Effective Now Number of Occurrences: Until Specified Order Questions: Suicide/Behavior Risk Modification? No Regular Diet Services Required [facility] Physical Therapy: Occupational Therapy: Weight bearing status: full Needs 24 hour supervision due to cognitive impairment: No Discharge Medications Medications: Medication List TAKE these medications, which are NEW Quantity/Refills atovaquone 750 mg/5 mL suspension Commonly known as: MEPRON Take 10 mLs (1,500 mg total) by mouth daily. Quantity: 300 mL Refills: 2 ASK your doctor about these medications Quantity/Refills Accu-Chek Guide Glucose Meter Misc Generic drug: blood-glucose meter Use to test blood sugar four times a day. Quantity: 1 each Refills: 0 Accu-Chek Guide test strips Strp Generic drug: blood sugar diagnostic Use to test blood sugar four times a day. Quantity: 100 strip Refills: 11 Accu-Chek Softclix Lancets lancets Generic drug: lancets Use to test blood sugar four times a day. Quantity: 100 each Refills: 11 acetaminophen 325 MG tablet Commonly known as: TYLENOL Take 3 tablets (975 mg total) by mouth every 8 hours. Quantity: 200 tablet Refills: 0 acyclovir 400 MG tablet Commonly known as: ZOVIRAX Take 2 tablets (800 mg total) by mouth 2 times a day. Quantity: 120 tablet Refills: 0 Easy Touch Alcohol Prep Pads Padm Generic drug: alcohol swabs Use as instructed. Quantity: 200 each Refills: 2 insulin lispro 100 unit/mL Inpn Administer insulin with meals per sliding scale: Blood glucose 150-199 mg/dL =1units, Blood xsbphit299-598 mg/dL =2 units, Blood glucose 250-299 mg/dL =3 units, Blood glucose 300-349 mg/dL =4 units,Blood glucose greater than 349 mg/dL = 5 units Quantity: 15 mL Refills: 2 methocarbamoL 500 MG tablet Commonly known as: ROBAXIN Take 1 tablet (500 mg total) by mouth 3 times a day as needed. Refills: 0 mycophenolate 250 mg capsule Commonly known as: CELLCEPT Take 2 capsules (500 mg total) by mouth 2 times a day. Quantity: 120 capsule Refills: 5 Tierney 2nd Gen Pen Needle 32 gauge x 5/32 Ndle Generic drug: pen needle, diabetic For use with insulin pen. Use as instructed. Quantity: 100 each Refills: 2 NIFEdipine 30 MG (OSM) 24 hr tablet Commonly known as: PROCARDIA-XL Take 1 tablet (30 mg total) by mouth daily. Quantity: 30 tablet Refills: 0 Oyster Shell Calcium-Vit D3 500 mg-5 mcg (200 unit) per tablet Generic drug: calcium-vitamin D Take 1 tablet by mouth 2 times a day with meals. Quantity: 60 tablet Refills: 2 pantoprazole 40 MG tablet Commonly known as: PROTONIX Take 1 tablet (40 mg total) by mouth every morning before breakfast. Quantity: 30 tablet Refills: 2 polyethylene glycol 17 gram/dose powder Commonly known as: GLYCOLAX Mix 1 capful (17 g) in 8 ounces of fluid and drink by mouth daily as needed for constipation. Quantity: 238 g Refills: 0 predniSONE 5 MG tablet Commonly known as: DELTASONE Take 6 tablets by mouth in the morning on 10/23, then take 5 tablets by mouth on 10/24, and then starting on 10/25, take 4 tablets daily Quantity: 123 tablet Refills: 2 Stimulant Laxative Plus 8.6-50 mg per tablet Generic drug: senna-docusate Take 1 tablet by mouth at bedtime as needed for constipation. Quantity: 30 tablet Refills: 0 sulfamethoxazole-trimethoprim 400-80 mg per tablet Commonly known as: BACTRIM Take 1 tablet by mouth daily. Quantity: 30 tablet Refills: 2 tacrolimus 1 MG capsule Commonly known as: PROGRAF Take 5 capsules (5 mg total) by mouth 2 times a day. Quantity: 600 capsule Refills: 5 Where to Get Your Medications These medications were sent to [facility] [address] [place] [address] Hours: Wednesday - Wednesday: 8:00AM - 6:00PM atovaquone 750 mg/5 mL suspension Discharge Specific Orders Discharge specific orders: LAB DRAWS: Please collect CBC w/diff, renal function panel, hepatic function panel, and tacrolimus level (prior to morning dose of tacrolimus) every Wed/. Fax results to liver transplant clinic at [phone]. NURSE VISIT: Please check vitals and assess/monitor surgical incision every Wed/. Isolation Patient Isolation Status Isolation Added Added By Contact / Droplet 11/03/25 Nathalie Cohen MD Removed Isolation Added Added By Removed Removed By Droplet 11/03/25 Nathalie Cohen MD 11/03/25 Nathalie Cohen MD Contact PLUS 11/02/25 Aspen Parr MD 11/03/25 Jolene Bell RN Vitals Patient Vitals for the past 4 hrs: BP Temp Temp src Pulse Resp SpO2 11/08/25 1232 133/59 98.8 ??F (37.1 ??C) Oral 67 17 96 % Equipment/Supplies Ordering Physician: CHANDRIKA [VANI WINKLER MD] Physician Certification Further, I certify that my clinical findings support that this patient is homebound (i.e. absences from home require considerable and taxing effort and are for medical reasons or yazdanism services or infrequently or short duration when for other reasons) due to extensive needs and high risk of infection it would be a taxing effort to receive outpatient services. My signature below is to certify that this patient is under my care and that I, or nurse practitioner, or a physician corporate law assistant working with me, had a [id number] encounter with this is patient on: 11/08/2025 Follow-up Appointments and Post Hospital Discharge Physician Name Future Appointments Date Time Provider Department Center 11/13/2025 8:20 AM [facility], [facility] 11/13/2025 11:30 AM US 4 [facility] 11/27/2025 8:00 AM LAISHA [place] [facility] No follow-up provider specified. Discharging Physician Signature and Credentials Discharging Physician: Electronically signed by ZEFERINO PYLE MD 11/08/2025, 1:42 PM Physician to follow up Information PCP: Dr. Chris Medel MD PCP address: [address] [place] [address] [place] [address] PCP phone number: [phone] PCP fax number: [phone] Physicians to follow are liver transplant surgeons. For any questions, they and the liver transplant nurse coordinators may be contacted through the liver transplant clinic at [phone]. Fax results to [phone]. Economic Consultant and Credentials Provider/Company Name and Contact Number: Community Services at Discharge Community Services at Home post discharge: [facility] Name/Phone # post discharge: [facility] [phone] Home Health Services Types at Discharge: PT/OT/BILINGUAL ACCOUNT MANAGER, [facility] Economic Consultant Name and Telephone Number: TONYA Aguillon [phone] [1] Allergies Allergen Reactions Lisinopril Other (See Comments) * Care Coordination - Citlaly SILVIO Zimmerman - 11/07/2025 1:00 PM EST [facility] Case Management/Social Work Department Progress Note Patient Information Patient Name: David Serrano Hospital day: 4 Inpatient/Observation: Inpatient Level of Care: Floor Admit date: 11/02/2025 Admission diagnosis: Elevated LFTs and bili PMH: has a past medical history of Epididymitis, Hemochromatosis, Hypertension, Kidney stone, 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 PCP: Dr. Chris Medel MD Home Pharmacy: [facility] - [place], [place] - [address] [facility] [address] [facility] [address] [place] [address] [facility] [address] [facility] [address] [facility] [address] [place] [facility] [address] [facility] [address] [facility] [id number] Medical Insurance Coverage: Payor: ANTHEM / Plan: BLUE ACCESS / Product Type: PPO / Other Pertinent Information distribution specialist met with interdisciplinary team for rounding/received report, and reviewed chart. Per team, patient is not medically ready for discharge. Report received from Transplant Team: Pt started on rejection treatment. Anticipate medical readiness over the weekend. Patient will be a resumption of care with [facility] ([phone]) [facility] able to resume care on 11/13. Teamgood with [facility] starting on 11/13. Discharge Plan Anticipated discharge plan: Home with [facility] Anticipated discharge date: 11/11/2025 CM/SW will continue to follow and remain available for discharge planning needs. CITLALY ZIMMERMAN RN/CM * Plan of Care - Veronica Winter RN - 11/07/2025 11:17 AM EST Problem: Safety Goal: Patient will [...] policy, and non-skid footwear provided. Outcome: Progressing Problem: Patient will remain free of falls Goal: Elberta Fall Precautions Outcome: Progressing Problem: Daily Care Goal: Daily care needs are met Description: Assess and monitor ability to perform self care and identify potential discharge needs. Outcome: Progressing * Plan of Care - Anum Morales RN - 11/06/2025 10:01 PM EST Problem: Safety Goal: Patient will [...] policy, and non-skid footwear provided. Outcome: Progressing Problem: Patient will remain free of falls Goal: Elberta Fall Precautions Outcome: Progressing Problem: Daily Care Goal: Daily care needs are met Description: Assess and monitor ability to perform self care and identify potential discharge needs. Outcome: Progressing * Plan of Care - Bj Sy RN - 11/06/2025 6:35 PM EST Problem: High Fall Risk Precautions Goal: High Fall Risk Precautions Outcome: Progressing Problem: Safety Goal: Patient will be injury [...] policy, and non-skid footwear provided. Outcome: Progressing Problem: Patient will remain free of falls Goal: Elberta Fall Precautions Outcome: Progressing Problem: Daily Care Goal: Daily care needs are met Description: Assess and monitor ability to perform self care and identify potential discharge needs. 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 PCP: Dr. Chris Medel MD [facility] Pharmacy: [facility] [place] [facility] [address] [facility] [address] [facility] [address] [place] [address] [facility] [address] [facility] [address] [facility] [address] [facility] [address] [facility] [address] [facility] [address] [facility] [place] [facility] [id number] Medical Insurance Coverage: Payor: NANCY / Plan: BLUE ACCESS / Product Type: PPO / Other Pertinent Information RN/SAJAN received call from Carlton with [facility] ([phone]). Carlton reported [facility] if pt is discharged tomorrow will not be able to restart services until 11/13/2025. RN/SAJAN secured [employer] Transplant Team notifiy Team [facility] unable to restart services until 11/13 dueto staff constraints. UPDATE: distribution specialist met with interdisciplinary team for rounding/received report, and reviewed chart. Per team, patient is not medically ready for discharge. Report received from the Transplant Team: Will need Outpatient Labs and PT/OT unitl [facility] can resume care. Anticipate medical readiness Wednesday. RN/SAJAN requested scripts for outpatient labs and PT/OT until [facility] can resume care on the 11/13/2025 Discharge Plan Anticipated discharge plan: Home with [facility] Anticipated discharge date: 11/07/2025 CM/SW will continue to follow and remain available for discharge planning needs. CITLALY ZIMMERMAN RN/SAJAN * Plan of Care - Erica Benjamin RN - 11/05/2025 11:19 PM EST Problem: Safety Goal: Patient will [...] Patient will remain free of falls Goal: Elberta Fall Precautions Outcome: Progressing Problem: Daily Care Goal: Daily care needs are met Description: Assess and monitor ability to perform self care and identify potential discharge needs. Outcome: Progressing * Plan of Care - Breonna Villa MD - 11/05/2025 5:40 PM EST Brief Liver Note Patient s/p liver biopsy today with hepatology for hyperbilirubinemia. Reviewed pathology which nowshows he has moderate-severe ACR with DAVIS 6-7. Also with evidence of biliary obstruction on the biopsy. Please give methylpred 500 today. Communicated to Sherrie INTERIANO We will continue to follow along. If you have any questions, please contact the Liver fellow on-call. Plan discussed with Dr. Pinzon. 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 PCP: Dr. Chris Medel MD Home Pharmacy: [facility] [place] [facility] [address] [facility] [address] [facility] [address] [place] [address] [facility] [address] [facility] [address] [facility] [address] [facility] [address] [facility] [address] [facility] [address] [facility] [address] [place] [facility] [id number] Medical Insurance Coverage: Payor: NANCY / Plan: BLUE ACCESS / Product Type: PPO / Other Pertinent Information distribution specialist met with interdisciplinary team for rounding/received report, and reviewed chart. Per team, patient is not medically ready for discharge. Report received by Transplant Team: Liver Biopsy possible today, Hemology consulted, receiving 1 unit of blood today. Anticipate medical readiness Wednesday with resumption of HHC (SN for labs and PT/OT). Pt has [facility]([phone]) SN for labs and PT/OT. Resumption referral sent. Discharge Plan Anticipated discharge plan: Home with [facility] Anticipated discharge date: 11/07/2025 CM/SW will continue to follow and remain available for discharge planning needs. CITLALY ZIMMERMAN RN/CM * Plan of Care - Noy Torres RN - 11/05/2025 8:42 AM EST Problem: High Fall Risk Precautions Goal: High Fall Risk Precautions Outcome: Progressing Problem: Safety Goal: Patient will be injury [...] for patient weight > 350lbs. Outcome: Progressing * Plan of Care - Mariza Severino RN - 11/04/2025 11:47 PM EST Problem: Safety Goal: Patient will [...] policy, and non-skid footwear provided. Outcome: Progressing Problem: Patient will remain free of falls Goal: Elberta Fall Precautions Outcome: Progressing Problem: Daily Care Goal: Daily care needs are met Description: Assess and monitor ability to perform self care and identify potential discharge needs. Outcome: Progressing Problem: Psychosocial Needs Goal: Demonstrates ability to cope with hospitalization/illness Description: Assess and monitor patients ability to cope with his/her illness. Outcome: Progressing * Plan of Care - Jolene Bell RN - 11/04/2025 7:42 AM EST Problem: Safety Goal: Patient will [...] policy, and non-skid footwear provided. Outcome: Progressing Problem: Patient will remain free of falls Goal: [place] Fall Precautions Outcome: Progressing Problem: Daily Care Goal: Daily care needs are met Description: Assess and monitor ability to perform self care and identify potential discharge needs. Outcome: Progressing Problem: Psychosocial Needs Goal: Demonstrates ability to cope with hospitalization/illness Description: Assess and monitor patients ability to cope with his/her illness. Outcome: Progressing Problem: Discharge Barriers Goal: Patient's discharge needs are met Description: Collaborate with interdisciplinary team and initiate plans and interventions as needed. Outcome: Progressing * Plan of Care - Mariza Severino RN - 11/04/2025 12:09 AM EST Problem: Safety Goal: Patient will [...] policy, and non-skid footwear provided. Outcome: Progressing Problem: Patient will remain free of falls Goal: [place] Fall Precautions Outcome: Progressing Problem: Daily Care Goal: Daily care needs are met Description: Assess and monitor ability to perform self care and identify potential discharge needs. Outcome: Progressing * Plan of Care - Jolene Bell RN - 11/03/2025 3:41 PM EST Problem: Safety Goal: Patient will [...] policy, and non-skid footwear provided. Outcome: Progressing Problem: Patient will remain free of falls Goal: [place] Fall Precautions Outcome: Progressing Problem: Daily Care Goal: Daily care needs are met Description: Assess and monitor ability to perform self care and identify potential discharge needs. Outcome: Progressing Problem: Psychosocial Needs Goal: Demonstrates ability to cope with hospitalization/illness Description: Assess and monitor patients ability to cope with his/her illness. Outcome: Progressing Problem: Psychosocial Needs Goal: Collaborate with patient/family to identify patient's goals Outcome: Progressing Problem: Discharge Barriers Goal: Patient's discharge needs are met Description: Collaborate with interdisciplinary team and initiate plans and interventions as needed. Outcome: Progressing * Plan of Care - Erica Benjamin RN - 11/03/2025 9:28 AM EST Problem: High Fall Risk Precautions Goal: High Fall Risk Precautions Outcome: Progressing documented in this encounter Plan of Treatment Pending Results Name Type Priority Associated Diagnoses Date /Time Blood Culture, Acid Fast (Blood) Microbiology Routine 11/02/2025 9:08 PM EST Fungus culture, blood (Blood) Microbiology Routine 11/02/2025 9:08 PM EST Donor Specific Antibody (DSA) Lab Routine 11/06/2025 6:02 AM EST FRANSICO Negative Work Up (Super [place]) Lab Routine 11/08/2025 6:15 AM EST Scheduled Orders Name Type Priority Associated Diagnoses Order Schedule Surgical Pathology Exam Pathology and Cytology Routine Hyperbilirubinemia Release Upon Ordering for 1 Occurrences starting 11/05/2025 Donor Specific Antibody (DSA) Lab Routine AM Draw for 1 Occurrences starting 11/06/2025 until 11/06/2025 FRANSICO Negative Work Up (Super [place]) Lab Routine Once for 1 Occurrences starting 11/07/2025 until 11/07/2025 documented as of this encounter Procedures Procedure Name Priority Date/Time Associated Diagnosis Comments POC GLU MONITORING DEVICE Routine 11/08/2025 12:34 PM EST POC GLU MONITORING DEVICE Routine 11/08/2025 7:19 AM EST HEPATIC FUNCTION PANEL STAT 11/08/2025 6:15 AM EST TACROLIMUS LEVEL Timed 11/08/2025 6:15 AM EST CBC STAT 11/08/2025 6:15 AM EST PHOSPHORUS STAT 11/08/2025 6:15 AM EST MAGNESIUM STAT 11/08/2025 6:15 AM EST LACTATE DEHYDROGENASE STAT 11/08/2025 6:15 AM EST HAPTOGLOBIN Routine 11/08/2025 6:15 AM EST BASIC METABOLIC PANEL STAT 11/08/2025 6:15 AM EST POC GLU MONITORING DEVICE Routine 11/07/2025 9:04 PM EST POC GLU MONITORING DEVICE Routine 11/07/2025 5:56 PM EST POC GLU MONITORING DEVICE Routine 11/07/2025 2:13 PM EST POC GLU MONITORING DEVICE Routine 11/07/2025 8:53 AM EST HEPATIC FUNCTION PANEL STAT 11/07/2025 6:40 AM EST TACROLIMUS LEVEL Timed 11/07/2025 6:40 AM EST CBC STAT 11/07/2025 6:40 AM EST PHOSPHORUS STAT 11/07/2025 6:40 AM EST MAGNESIUM STAT 11/07/2025 6:40 AM EST LACTATE DEHYDROGENASE STAT 11/07/2025 6:40 AM EST HAPTOGLOBIN Routine 11/07/2025 6:40 AM EST IGG Add-On 11/07/2025 6:40 AM EST BASIC METABOLIC PANEL STAT 11/07/2025 6:40 AM EST POC GLU MONITORING DEVICE Routine 11/06/2025 9:36 PM EST POC GLU MONITORING DEVICE Routine 11/06/2025 6:34 PM EST CBC STAT 11/06/2025 5:50 PM EST POC GLU MONITORING DEVICE Routine 11/06/2025 11:11 AM EST POC GLU MONITORING DEVICE Routine 11/06/2025 7:25 AM EST PREPARE RBC, LEUKOREDUCED STAT 11/06/2025 6:15 AM EST HEPATIC FUNCTION PANEL STAT 11/06/2025 6:02 AM EST TACROLIMUS LEVEL Timed 11/06/2025 6:02 AM EST CBC STAT 11/06/2025 6:02 AM EST PHOSPHORUS STAT 11/06/2025 6:02 AM EST MAGNESIUM STAT 11/06/2025 6:02 AM EST LACTATE DEHYDROGENASE STAT 11/06/2025 6:02 AM EST HAPTOGLOBIN Routine 11/06/2025 6:02 AM EST BASIC METABOLIC PANEL STAT 11/06/2025 6:02 AM EST POC GLU MONITORING DEVICE Routine 11/05/2025 9:56 PM EST FRANSICO ANTI-COMPLEMENT Routine 11/05/2025 8:22 PM EST FRANSICO ANTI-IGG Routine 11/05/2025 8:21 PM EST PARVOVIRUS B19 QUANT PCR Routine 11/05/2025 6:49 PM EST RETICULOCYTE COUNT, AUTO Routine 11/05/2025 6:49 PM EST PARVOVIRUS B19 ANTIBODY, IGG AND IGM STAT 11/05/2025 6:49 PM EST CBC STAT 11/05/2025 6:49 PM EST DIRECT ANTIGLOBULIN TEST Routine 11/05/2025 6:49 PM EST HEMOGLOBIN FREE, PLASMA Routine 11/05/2025 6:49 PM EST TRANSFUSE RED BLOOD CELLS STAT 11/05/2025 2:47 PM EST POC GLU MONITORING DEVICE Routine 11/05/2025 2:10 PM EST LIVER BIOPSY Routine 11/05/2025 11:35 AM EST LIVER BIOPSY [facility] Diagnostic Procedure 11/05/2025 11:13 AM EST Hyperbilirubinemia PREPARE RBC, LEUKOREDUCED Routine 11/05/2025 6:15 AM EST SLIDE REQUEST (MAKE SLIDE AND HOLD) Add-On 11/05/2025 6:10 AM EST HEPATIC FUNCTION PANEL STAT 11/05/2025 6:10 AM EST TACROLIMUS LEVEL Timed 11/05/2025 6:10 AM EST DIFFERENTIAL Add-On 11/05/2025 6:10 AM EST CBC STAT 11/05/2025 6:10 AM EST PHOSPHORUS STAT 11/05/2025 6:10 AM EST MAGNESIUM STAT 11/05/2025 6:10 AM EST LACTATE DEHYDROGENASE STAT 11/05/2025 6:10 AM EST HAPTOGLOBIN Routine 11/05/2025 6:10 AM EST BASIC METABOLIC PANEL STAT 11/05/2025 6:10 AM EST POC GLU MONITORING DEVICE Routine 11/05/2025 6:00 AM EST POC GLU MONITORING DEVICE Routine 11/05/2025 12:11 AM EST SURGICAL PATHOLOGY EXAM Routine 11/05/2025 12:00 AM EST POC GLU MONITORING DEVICE Routine 11/04/2025 6:48 PM EST POC GLU MONITORING DEVICE Routine 11/04/2025 1:00 PM EST FL ERCP S-I Routine 11/04/2025 11:16 AM EST Hepatic encephalopathy (CMS-HCC) Pre-transplant evaluation for chronic liver disease Encounter for pre-transplant evaluation for liver transplant ERCP ERCP 11/04/2025 9:47 AM EST POC GLU MONITORING DEVICE Routine 11/04/2025 9:32 AM EST TACROLIMUS LEVEL Timed 11/04/2025 6:15 AM EST PREPARE RBC, LEUKOREDUCED Routine 11/04/2025 6:15 AM EST POC GLU MONITORING DEVICE Routine 11/04/2025 5:18 AM EST HEPATIC FUNCTION PANEL STAT 11/04/2025 3:39 AM EST CBC STAT 11/04/2025 3:39 AM EST PHOSPHORUS STAT 11/04/2025 3:39 AM EST MAGNESIUM STAT 11/04/2025 3:39 AM EST BASIC METABOLIC PANEL STAT 11/04/2025 3:39 AM EST POC GLU MONITORING DEVICE Routine 11/03/2025 11:38 PM EST TRANSFUSE RED BLOOD CELLS Routine 11/03/2025 11:00 PM EST CBC Routine 11/03/2025 9:14 PM EST POC GLU MONITORING DEVICE Routine 11/03/2025 6:00 PM EST CBC Routine 11/03/2025 1:52 PM EST LACTATE DEHYDROGENASE STAT 11/03/2025 1:52 PM EST HAPTOGLOBIN Routine 11/03/2025 1:52 PM EST POC GLU MONITORING DEVICE Routine 11/03/2025 11:47 AM EST US DUPLEX NRI-OZNTOT-SVVEQUY COMPLETE STAT 11/03/2025 10:05 AM EST US ABDOMEN LIMITED STAT 11/03/2025 10:05 AM EST HEPATIC FUNCTION PANEL STAT 11/03/2025 6:46 AM EST TACROLIMUS LEVEL Timed 11/03/2025 6:46 AM EST CBC STAT 11/03/2025 6:46 AM EST PHOSPHORUS STAT 11/03/2025 6:46 AM EST MAGNESIUM STAT 11/03/2025 6:46 AM EST BASIC METABOLIC PANEL STAT 11/03/2025 6:46 AM EST TRANSFUSE RED BLOOD CELLS Routine 11/03/2025 6:37 AM EST POC GLU MONITORING DEVICE Routine 11/03/2025 5:45 AM EST ENTERIC PATHOGEN PANEL Routine 11/03/2025 5:21 AM EST CLOSTRIDIUM DIFFICILE DNA AMPLIFICATION Routine 11/03/2025 5:21 AM EST HISTOPLASMA/BLASTOMYC ES AG, EIA, U Routine 11/03/2025 3:20 AM EST STREP PNEUMO-LEGIONELLA URINE ANTIGEN Routine 11/03/2025 2:51 AM EST UPPER RESPIRATORY VIRAL/BACTERIAL PANEL-PE[employer]LE [employer] OPERATOR ONLY Routine 11/03/2025 2:51 AM EST URINALYSIS W/RFL TO MICROSCOPIC Routine 11/03/2025 2:51 AM EST TRANSFUSE RED BLOOD CELLS Routine 11/03/2025 2:[address] ABDOMEN AND PELVIS WITH IV CONTRAST STAT 11/03/2025 1:21 AM EST POC GLU MONITORING DEVICE Routine 11/03/2025 12:26 AM EST ABO/RH Routine 11/02/2025 11:44 PM EST ANTIBODY SCREEN Routine 11/02/2025 11:44 PM EST HISTOPLASMA/BLASTOMYC ES AG, EIA, S Routine 11/02/2025 9:13 PM EST BLOOD CULTURE-PERIPHERAL STAT 11/02/2025 9:13 PM EST FUNGITELL QZOG-T-DVRXAC Routine 11/02/2025 9:08 PM EST CRYPTOCOCCUS ANTIGEN, SERUM Routine 11/02/2025 9:08 PM EST CYTOMEGALOVIRUS DNA, QUANT, RT PCR Routine 11/02/2025 9:08 PM EST HEPATIC FUNCTION PANEL STAT 11/02/2025 9:08 PM EST RENAL FUNCTION PANEL W/EGFR STAT 11/02/2025 9:08 PM EST JOSE MIMS VIRUS DNA, QNT PCR, BLOOD Routine 11/02/2025 9:08 PM EST ADENOVIRUS, QUANTITATIVE PCR Routine 11/02/2025 9:08 PM EST ASPERGILLUS AG Routine 11/02/2025 9:08 PM EST BLOOD CULTURE-PERIPHERAL STAT 11/02/2025 9:08 PM EST CBC STAT 11/02/2025 9:08 PM EST AFB CULTURE, BLOOD Routine 11/02/2025 9:08 PM EST FUNGUS CULTURE, BLOOD Routine 11/02/2025 9:08 PM EST MAGNESIUM STAT 11/02/2025 9:08 PM EST POC GLU MONITORING DEVICE Routine 11/02/2025 8:51 PM EST documented in this encounter Results * (ABNORMAL) POC Glucose Monitoring Device (11/08/2025 12:34 PM EST) POC Glucose Monitoring Device 304(H) 70 - 100 mg/dL 11/08/2025 12:35 PM EST [facility] Blood 11/08/2025 12:3 4 PM EST 11/08/2025 12:35 PM EST Vani Winkler MD POINT OF CARE TEST ORDERABLE S Final Result Performing Organization Address [facility] Co de Phone Number [facility] [address] [facility] * (ABNORMAL) POC Glucose Monitoring Device (11/08/2025 7:19 AM EST) POC Glucose Monitoring Device 143(H) 70 - 100 mg/dL 11/08/2025 7:20 AM EST [facility] Blood 11/08/2025 7:19 AM EST 11/08/2025 7:20 AM EST Vani Winkler MD POINT OF CARE TEST ORDERABLE S Final Result Performing Organization Address [facility] Co de Phone Number [facility] [address] [facility] * (ABNORMAL) Haptoglobin (11/08/2025 6:15 AM EST) Haptoglobin <30(L) 44 - 215 mg/dL 11/08/2025 8:18 AM EST [facility] Serum 11/08/2025 6:15 AM EST 11/08/2025 6:21 AM EST Keith Novak MD LAB BLOOD ORDERABLES Fi nal Result Performing Organization Address City/[facility]/ZIP Co de Phone Number [facility] [address] [facility] * (ABNORMAL) Lactate Dehydrogenase (11/08/2025 6:15 AM EST) Pathologist [facility] LD 344(H) 110 - 270 U/L 11/08/2025 6:56 AM EST [facility] Plasma 11/08/2025 6:15 AM EST 11/08/2025 6:20 AM EST Keith Novak MD LAB BLOOD ORDERABLES Fi nal Result Performing Organization Address [facility] Co de Phone Number [facility] [address] [place] [address]. [address] * Tacrolimus level (11/08/2025 6:15 AM EST) [facility] Tacrolimus (LC-MS) 10.1 3.0 - 15.0 ng/mL 11/08/2025 11:07 AM EST [facility] Comment:Performed via liquid chromatography tandem mass spectrometry. Detection limit: 1 ng/mL. Individual target concentrations may vary due to target organ and time after transplant. This test has been developed and its performance characteristics determined by [facility] which is certified under the Clinical Laboratory Improvement Amendment of 1988 (CLIA-88) to perform high complexity testing. The test has not been cleared or approved by the US Food and Drug Administration (FDA). The FDA has determined that such clearance is not necessary. The test should be used for clinical purposes and is not regarded as investigational. Whole Blood 11/08/2025 6:15 AM EST 11/08/2025 6:21 AM EST Aspen Parr MD LAB BLOOD ORDERABLES Final Resul t Performing Organization Address [facility]/ZIP Co de Phone Number [facility] [address] [place] [address]. [address] * Phosphorus (11/08/2025 6:15 AM EST) [facility] Phosphorus 3.5 2.1 - 4.7 mg/dL 11/08/2025 6:56 AM EST [facility] Plasma 11/08/2025 6:15 AM EST 11/08/2025 6:20 AM EST Aspen Parr MD LAB BLOOD ORDERABLES Final Resul t Performing Organization Address City/[facility]/ZIP Co de Phone Number [facility] [address] [facility] * Magnesium (11/08/2025 6:15 AM EST) Magnesium 1.6 1.5 - 2.5 mg/dL 11/08/2025 6:56 AM EST [facility] Plasma 11/08/2025 6:15 AM EST 11/08/2025 6:20 AM EST Aspen Parr MD LAB BLOOD ORDERABLES Final Resul t Performing Organization Address [facility] de Phone Number [facility] [address] * (ABNORMAL) CBC (11/08/2025 6:15 AM EST) WBC 10.0 3.8 - 10.8 10E3/uL 11/08/2025 6:27 AM EST [facility] RBC 2.48(L) 4.20 - 5.80 10E6/uL 11/08/2025 6:27 AM EST [facility] Hemoglobin 8.5(L) 13.2 - 17.1 g/dL 11/08/2025 6:27 AM EST [facility] Hematocrit 24.1(L) 38.5 - 50.0 % 11/08/2025 6:27 AM EST [facility] MCV 97.2 80.0 - 100.0 fL 11/08/2025 6:27 AM EST [facility] MCH 34.4(H) 27.0 - 33.0 pg 11/08/2025 6:27 AM EST [facility] MCHC 35.4 32.0 - 36.0 g/dL 11/08/2025 6:27 AM EST [facility] RDW 24.0(H) 11.0 - 15.0 % 11/08/2025 6:27 AM EST [facility] Platelets 153 140 - 400 10E3/uL 11/08/2025 6:27 AM EST [facility] MPV 8.0 7.5 - 11.5 fL 11/08/2025 6:27 AM EST [facility] Whole Blood 11/08/2025 6:15 AM EST 11/08/2025 6:21 AM EST us Aspen Parr MD LAB BLOOD ORDERABLES Final Resul t [facility] [address] [place] [address], [facility] * (ABNORMAL) Basic metabolic panel (11/08/2025 6:15 AM EST) Sodium 136 133 - 146 mmol/L 11/08/2025 6:56 AM EST [facility] Potassium 3.9 3.5 - 5.3 mmol/L 11/08/2025 6:56 AM [facility] Chloride 105 98 - 110 mmol/L 11/08/2025 6:56 AM [facility] CO2 22 21 - 33 mmol/L 11/08/2025 6:56 AM [facility] Comment:High lactate dehydro genase concentrations in patient samples may cause falsely increased bicarbonate results. If markedly elevated LDH is observed or suspected, please assess results in conjunction with patient`s clinical presentation. In cases of discrepant results, consider evaluating CO2 in with a blood gas order. Anion Gap 9 3 - 16 mmol/L 11/08/2025 6:56 AM [facility] BUN 21 7 - 25 mg/dL 11/08/2025 6:56 AM [facility] Creatinine 1.03 0.60 - 1.30 mg/dL 11/08/2025 6:56 AM [facility] Glucose 143(H) 70 - 100 mg/dL 11/08/2025 6:56 AM [facility] Calcium 7.9(L) 8.6 - 10.3 mg/dL 11/08/2025 6:56 AM [facility] Osmolality, Calculated 287 278 - 305 mOsm/kg 11/08/2025 6:56 AM [facility] EGFR 81 11/08/2025 6:56 AM EST [facility] Comment:As of 2022, the estimated [...] Disease. Am J Kidney Dis. 2020. Plasma 11/08/2025 6:15 AM EST 11/08/2025 6:20 AM EST us Aspen Parr MD LAB BLOOD ORDERABLES Final Resul t [facility] [address] [place] [address], [facility] * (ABNORMAL) Hepatic Function Panel (11/08/2025 6:15 AM EST) Total Bilirubin 5.0(H) 0.0 - 1.5 mg/dL 11/08/2025 6:56 AM EST [facility] Bilirubin, Direct 2.51(H) 0.00 - 0.40 mg/dL 11/08/2025 6:56 AM EST [facility] AST 26 13 - 39 U/L 11/08/2025 6:56 AM EST [facility] ALT 54(H) 7 - 52 U/L 11/08/2025 6:56 AM EST [facility] Alkaline Phosphatase 364(H) 36 - 125 U/L 11/08/2025 6:56 AM EST [facility] Total Protein 5.6(L) 6.4 - 8.9 g/dL 11/08/2025 6:56 AM EST [facility] Albumin 3.0(L) 3.5 - 5.7 g/dL 11/08/2025 6:56 AM EST [facility] Bilirubin, Indirect 2.49(H) 0.00 - 1.10 mg/dL 11/08/2025 6:56 AM EST [facility] Plasma 11/08/2025 6:15 AM EST 11/08/2025 6:20 AM EST us Aspen Parr MD LAB BLOOD ORDERABLES Final Resul t [facility] [address] [facility] * (ABNORMAL) POC Glucose Monitoring Device (11/07/2025 9:04 PM EST) POC Glucose Monitoring Device 253(H) 70 - 100 mg/dL 11/07/2025 9:05 PM EST [facility] Blood 11/07/2025 9:04 PM EST 11/07/2025 9:05 PM EST us Vani Winkler MD POINT OF CARE TEST ORDERABLE S Final Result Performing Organization Address City/[facility]/ZIP Co de Phone Number [facility] [address] [facility] * (ABNORMAL) POC Glucose Monitoring Device (11/07/2025 5:56 PM EST) POC Glucose Monitoring Device 216(H) 70 - 100 mg/dL 11/07/2025 5:57 PM EST [facility] Blood 11/07/2025 5:56 PM EST 11/07/2025 5:57 PM EST us Vani Winkler MD POINT OF CARE TEST ORDERABLE S Final Result Performing Organization Address City/[facility]/ZIP Co de Phone Number [facility] [address] [facility] * (ABNORMAL) POC Glucose Monitoring Device (11/07/2025 2:13 PM EST) POC Glucose Monitoring Device 250(H) 70 - 100 mg/dL 11/07/2025 2:14 PM EST [facility] Blood 11/07/2025 2:13 PM EST 11/07/2025 2:14 PM EST us Vani Winkler MD POINT OF CARE TEST ORDERABLE S Final Result Performing Organization Address City/[facility]/ZIP Co de Phone Number [facility] [address] [facility] * (ABNORMAL) POC Glucose Monitoring Device (11/07/2025 8:53 AM EST) POC Glucose Monitoring Device 188(H) 70 - 100 mg/dL 11/07/2025 8:54 AM EST [facility] Blood 11/07/2025 8:53 AM EST 11/07/2025 8:54 AM EST Vani Winkler MD POINT OF CARE TEST ORDERABLE S Final Result Performing Organization Address [facility] Co de Phone Number [facility] [address] [facility] * IgG (11/07/2025 6:40 AM EST) Pathologist [facility] IgG 993.0 600.0 - 1,560.0 mg/dL 11/09/2025 11:39 AM EST [facility] Comment:Please interpret the se findings in conjunction with clinical findings, protein electrophoresis, and immunotyping/immunofixation results. Serum 11/07/2025 6:40 AM EST 11/07/2025 3:26 PM EST us Vani Winkler MD LAB BLOOD ORDERABLES Final R esult Performing Organization Address City/[facility]/ZIP Co de Phone Number [facility] [address] [facility] * (ABNORMAL) Haptoglobin (11/07/2025 6:40 AM EST) Pathologist [facility] Haptoglobin <30(L) 44 - 215 mg/dL 11/07/2025 7:36 AM EST [facility] Serum 11/07/2025 6:40 AM EST 11/07/2025 7:02 AM EST Keith Novak MD LAB BLOOD ORDERABLES Fi nal Result Performing Organization Address [facility] de Phone Number [address] * (ABNORMAL) Lactate Dehydrogenase (11/07/2025 6:40 AM EST) LD 334(H) 110 - 270 U/L 11/07/2025 7:30 AM EST [facility] Plasma 11/07/2025 6:40 AM EST 11/07/2025 6:59 AM EST Keith Novak MD LAB BLOOD ORDERABLES Fi nal Result Performing Organization Address [facility] de Phone Number [address] * Tacrolimus level (11/07/2025 6:40 AM EST) Pathologist [facility] Tacrolimus (LC-MS) 8.9 3.0 - 15.0 ng/mL 11/07/2025 10:26 AM EST [facility] Comment:Performed via liquid chromatography tandem mass spectrometry. Detection limit: 1 ng/mL. Individual target concentrations may vary due to target organ and time after transplant. This test has been developed and its performance characteristics determined by [facility] which is certified under the Clinical Laboratory Improvement Amendment of 1988 (CLIA-88) to perform high complexity testing. The test has not been cleared or approved by the US Food and Drug Administration (FDA). The FDA has determined that such clearance is not necessary. The test should be used for clinical purposes and is not regarded as investigational. Whole Blood 11/07/2025 6:40 AM EST 11/07/2025 7:00 AM EST Aspen Parr MD LAB BLOOD ORDERABLES Final Resul t [facility] [address] [facility]. [address] * Phosphorus (11/07/2025 6:40 AM EST) Phosphorus 2.9 2.1 - 4.7 mg/dL 11/07/2025 7:31 AM EST [facility] Plasma 11/07/2025 6:40 AM EST 11/07/2025 6:59 AM EST Aspen Parr MD LAB BLOOD ORDERABLES Final Resul t [facility] [address] [facility]. [address] * Magnesium (11/07/2025 6:40 AM EST) Magnesium 1.9 1.5 - 2.5 mg/dL 11/07/2025 7:31 AM EST [facility] Plasma 11/07/2025 6:40 AM EST 11/07/2025 6:59 AM EST Aspen Parr MD LAB BLOOD ORDERABLES Final Resul t Performing Organization Address City/[facility] Co de Phone Number [facility] [address] [facility]. [address] * (ABNORMAL) CBC (11/07/2025 6:40 AM EST) WBC 12.0(H) 3.8 - 10.8 10E3/uL 11/07/2025 7:06 AM EST [facility] RBC 2.33(L) 4.20 - 5.80 10E6/uL 11/07/2025 7:06 AM EST [facility] Hemoglobin 8.0(L) 13.2 - 17.1 g/dL 11/07/2025 7:06 AM EST [facility] Hematocrit 22.4(L) 38.5 - 50.0 % 11/07/2025 7:06 AM EST [facility] MCV 96.5 80.0 - 100.0 fL 11/07/2025 7:06 AM EST [facility] MCH 34.4(H) 27.0 - 33.0 pg 11/07/2025 7:06 AM EST [facility] MCHC 35.7 32.0 - 36.0 g/dL 11/07/2025 7:06 AM EST [facility] RDW 19.9(H) 11.0 - 15.0 % 11/07/2025 7:06 AM EST [facility] Platelets 145 140 - 400 10E3/uL 11/07/2025 7:06 AM EST [facility] MPV 8.3 7.5 - 11.5 fL 11/07/2025 7:06 AM EST [facility] Whole Blood 11/07/2025 6:40 AM EST 11/07/2025 7:00 AM EST us Aspen Parr MD LAB BLOOD ORDERABLES Final Resul t [facility] [address] * (ABNORMAL) Hepatic Function Panel (11/07/2025 6:40 AM EST) Total Bilirubin 6.4(H) 0.0 - 1.5 mg/dL 11/07/2025 7:31 AM EST [facility] Bilirubin, Direct 3.39(H) 0.00 - 0.40 mg/dL 11/07/2025 7:31 AM EST [facility] AST 27 13 - 39 U/L 11/07/2025 7:31 AM EST [facility] ALT 63(H) 7 - 52 U/L 11/07/2025 7:31 AM EST [facility] Alkaline Phosphatase 370(H) 36 - 125 U/L 11/07/2025 7:31 AM EST [facility] Total Protein 5.2(L) 6.4 - 8.9 g/dL 11/07/2025 7:31 AM EST [facility] Albumin 2.8(L) 3.5 - 5.7 g/dL 11/07/2025 7:31 AM EST [facility] Bilirubin, Indirect 3.01(H) 0.00 - 1.10 mg/dL 11/07/2025 7:31 AM EST [facility] Plasma 11/07/2025 6:40 AM EST 11/07/2025 6:59 AM EST us Aspen Parr MD LAB BLOOD ORDERABLES Final Resul t [facility] [id number] [facility]. [place] [id number], [facility] * (ABNORMAL) Basic metabolic panel (11/07/2025 6:40 AM EST) Sodium 135 133 - 146 mmol/L 11/07/2025 7:31 AM EST [facility] Potassium 4.2 3.5 - 5.3 mmol/L 11/07/2025 7:31 AM EST [facility] Chloride 104 98 - 110 mmol/L 11/07/2025 7:31 AM EST [facility] CO2 24 21 - 33 mmol/L 11/07/2025 7:31 AM EST [facility] Comment:High lactate dehydro genase concentrations in patient samples may cause falsely increased bicarbonate results. If markedly elevated LDH is observed or suspected, please assess results in conjunction with patient`s clinical presentation. In cases of discrepant results, consider evaluating CO2 in with a blood gas order. Anion Gap 7 3 - 16 mmol/L 11/07/2025 7:31 AM EST [facility] BUN 22 7 - 25 mg/dL 11/07/2025 7:31 AM EST [facility] Creatinine 0.97 0.60 - 1.30 mg/dL 11/07/2025 7:31 AM EST [facility] Glucose 201(H) 70 - 100 mg/dL 11/07/2025 7:31 AM EST [facility] Calcium 7.5(L) 8.6 - 10.3 mg/dL 11/07/2025 7:31 AM EST [facility] Osmolality, Calculated 289 278 - 305 mOsm/kg 11/07/2025 7:31 AM EST [facility] EGFR 87 11/07/2025 7:31 AM EST [facility] Comment:As of 2022, the estimated [...] Disease. Am J Kidney Dis. 2020. Plasma 11/07/2025 6:40 AM EST 11/07/2025 6:59 AM EST Aspen Parr MD LAB BLOOD ORDERABLES Final Resul t Performing Organization Address [facility] Co de Phone Number [facility] [address] * (ABNORMAL) POC Glucose Monitoring Device (11/06/2025 9:36 PM EST) POC Glucose Monitoring Device 273(H) 70 - 100 mg/dL 11/06/2025 9:36 PM EST [facility] Blood 11/06/2025 9:36 PM EST 11/06/2025 9:36 PM EST Vani Winkler MD POINT OF CARE TEST ORDERABLE S Final Result [facility] [address] * (ABNORMAL) POC Glucose Monitoring Device (11/06/2025 6:34 PM EST) POC Glucose Monitoring Device 347(H) 70 - 100 mg/dL 11/06/2025 8:59 PM EST [facility] Blood 11/06/2025 6:34 PM EST 11/06/2025 8:59 PM EST Vani Winkler MD POINT OF CARE TEST ORDERABLE S Final Result [facility] [address] * (ABNORMAL) CBC, STAT (11/06/2025 5:50 PM EST) Pathologist [facility] WBC 10.1 3.8 - 10.8 10E3/uL 11/06/2025 6:43 PM EST [facility] RBC 2.40(L) 4.20 - 5.80 10E6/uL 11/06/2025 6:43 PM EST [facility] Hemoglobin 8.1(L) 13.2 - 17.1 g/dL 11/06/2025 6:43 PM EST [facility] Hematocrit 22.5(L) 38.5 - 50.0 % 11/06/2025 6:43 PM EST [facility] MCV 93.9 80.0 - 100.0 fL 11/06/2025 6:43 PM EST [facility] MCH 33.7(H) 27.0 - 33.0 pg 11/06/2025 6:43 PM EST [facility] MCHC 35.9 32.0 - 36.0 g/dL 11/06/2025 6:43 PM EST [facility] RDW 18.8(H) 11.0 - 15.0 % 11/06/2025 6:43 PM EST [facility] Platelets 146 140 - 400 10E3/uL 11/06/2025 6:43 PM EST [facility] Comment: _Platelet Morphology Normal _Platelets Appear Adequate MPV 8.5 7.5 - 11.5 fL 11/06/2025 6:43 PM EST [facility] Whole Blood 11/06/2025 5:50 PM EST 11/06/2025 5:58 PM EST us Kassi INTERIANO LAB BLOOD ORDERABLES Final Re sult [facility] [address] * (ABNORMAL) POC Glucose Monitoring Device (11/06/2025 11:11 AM EST) POC Glucose Monitoring Device 303(H) 70 - 100 mg/dL 11/06/2025 11:12 AM EST [facility] Blood 11/06/2025 11:1 1 AM EST 11/06/2025 11:12 AM EST Vnai Winkler MD POINT OF CARE TEST ORDERABLE S Final Result [facility] [address] [facility] * (ABNORMAL) POC Glucose Monitoring Device (11/06/2025 7:25 AM EST) POC Glucose Monitoring Device 320(H) 70 - 100 mg/dL 11/06/2025 7:25 AM EST [facility] Blood 11/06/2025 7:25 AM EST 11/06/2025 7:25 AM EST Vani Winkler MD POINT OF CARE TEST ORDERABLE S Final Result [facility] [address] * Prepare RBC, leukoreduced, 1 Units (11/06/2025 6:15 AM EST) Product Code [id number] [facility] Unit Number [id number] HCLL Dispense Status Released from Crossmatch_RE HCLL Blood Expiration Date HCLL Coding System [id number] HCLL Product Code [id number] [facility] Unit Number [id number] HCLL Dispense Status Presumed Transfused_PT HCLL Blood Expiration Date HCLL Coding System [id number] HCLL Product Code E5844E47 HCLL Unit Number [id number] HCLL Dispense Status Released from Crossmatch_RE HCLL Blood Expiration Date HCLL Coding System [id number] HCLL Blood Bank Product Sherrie INTERIANO BLOOD BANK PRODUCT ORDERABLES Fi nal Result Performing Organization Address [facility] Co de Phone Number [facility] * (ABNORMAL) Haptoglobin (11/06/2025 6:02 AM EST) Haptoglobin <30(L) 44 - 215 mg/dL 11/06/2025 7:00 AM EST [facility] Serum 11/06/2025 6:02 AM EST 11/06/2025 6:27 AM EST Keith Novak MD LAB BLOOD ORDERABLES Fi nal Result Performing Organization Address [facility] Co de Phone Number [facility] [address] [facility] * (ABNORMAL) Lactate Dehydrogenase (11/06/2025 6:02 AM EST) LD 400(H) 110 - 270 U/L 11/06/2025 6:48 AM EST [facility] Plasma 11/06/2025 6:02 AM EST 11/06/2025 6:19 AM EST Keith Novak MD LAB BLOOD ORDERABLES Fi nal Result Performing Organization Address [facility] de Phone Number [facility] [address] [facility] * Tacrolimus level (11/06/2025 6:02 AM EST) Pathologist [facility] Tacrolimus (LC-MS) 11.2 3.0 - 15.0 ng/mL 11/06/2025 10:50 AM EST [facility] Comment:Performed via liquid chromatography tandem mass spectrometry. Detection limit: 1 ng/mL. Individual target concentrations may vary due to target organ and time after transplant. This test has been developed and its performance characteristics determined by [facility] which is certified under the Clinical Laboratory Improvement Amendment of 1988 (CLIA-88) to perform high complexity testing. The test has not been cleared or approved by the US Food and Drug Administration (FDA). The FDA has determined that such clearance is not necessary. The test should be used for clinical purposes and is not regarded as investigational. Whole Blood 11/06/2025 6:02 AM EST 11/06/2025 6:19 AM EST Aspen Parr MD LAB BLOOD ORDERABLES Final Resul t Performing Organization Address [facility] Co de Phone Number [facility] [address] [facility] * Phosphorus (11/06/2025 6:02 AM EST) Phosphorus 2.9 2.1 - 4.7 mg/dL 11/06/2025 7:11 AM EST [facility] Plasma 11/06/2025 6:02 AM EST 11/06/2025 6:27 AM EST Aspen Parr MD LAB BLOOD ORDERABLES Final Resul t Performing Organization Address [facility] Co de Phone Number [facility] [address] [facility] * Magnesium (11/06/2025 6:02 AM EST) Magnesium 1.9 1.5 - 2.5 mg/dL 11/06/2025 7:11 AM EST [facility] Plasma 11/06/2025 6:02 AM EST 11/06/2025 6:27 AM EST Aspen Parr MD LAB BLOOD ORDERABLES Final Resul t Performing Organization Address [facility] Co de Phone Number [facility] [address] * (ABNORMAL) CBC (11/06/2025 6:02 AM EST) WBC 8.7 3.8 - 10.8 10E3/uL 11/06/2025 7:02 AM EST [facility] RBC 2.51(L) 4.20 - 5.80 10E6/uL 11/06/2025 7:02 AM EST [facility] Hemoglobin 8.3(L) 13.2 - 17.1 g/dL 11/06/2025 7:02 AM EST [facility] Hematocrit 23.4(L) 38.5 - 50.0 % 11/06/2025 7:02 AM EST [facility] MCV 93.4 80.0 - 100.0 fL 11/06/2025 7:02 AM EST [facility] MCH 33.3(H) 27.0 - 33.0 pg 11/06/2025 7:02 AM EST [facility] MCHC 35.7 32.0 - 36.0 g/dL 11/06/2025 7:02 AM [facility] RDW 18.3(H) 11.0 - 15.0 % 11/06/2025 7:02 AM [facility] Platelets 156 140 - 400 10E3/uL 11/06/2025 7:02 AM [facility] Platelet Estimate ADEQ 11/06/2025 7:02 AM [facility] MPV 8.3 7.5 - 11.5 fL 11/06/2025 7:02 AM [facility] Whole Blood 11/06/2025 6:02 AM EST 11/06/2025 6:19 AM EST Narrative [facility] - 11/06/2025 7:02 AM EST Peripheral blood smear was scanned per review criteria approved by the laboratory certified medical transcriptionist. us Aspen Parr MD LAB BLOOD ORDERABLES Final Resul t [facility] [address] [place] [address], [facility] * (ABNORMAL) Basic metabolic panel (11/06/2025 6:02 AM EST) Sodium 132(L) 133 - 146 mmol/L 11/06/2025 6:59 AM EST [facility] Potassium 4.6 3.5 - 5.3 mmol/L 11/06/2025 6:59 AM EST [facility] Chloride 103 98 - 110 mmol/L 11/06/2025 6:59 AM EST [facility] CO2 21 21 - 33 mmol/L 11/06/2025 6:59 AM EST [facility] Comment:High lactate dehydro genase concentrations in patient samples may cause falsely increased bicarbonate results. If markedly elevated LDH is observed or suspected, please assess results in conjunction with patient`s clinical presentation. In cases of discrepant results, consider evaluating CO2 in with a blood gas order. Anion Gap 8 3 - 16 mmol/L 11/06/2025 6:59 AM EST [facility] BUN 21 7 - 25 mg/dL 11/06/2025 6:59 AM EST [facility] Creatinine 0.97 0.60 - 1.30 mg/dL 11/06/2025 6:59 AM EST [facility] Glucose 307(H) 70 - 100 mg/dL 11/06/2025 6:59 AM EST [facility] Calcium 7.2(L) 8.6 - 10.3 mg/dL 11/06/2025 6:59 AM EST [facility] Osmolality, Calculated 289 278 - 305 mOsm/kg 11/06/2025 6:59 AM EST [facility] EGFR 87 11/06/2025 6:59 AM EST [facility] Comment:As of 2022, the estimated [...] Disease. Am J Kidney Dis. 2020. Plasma 11/06/2025 6:02 AM EST 11/06/2025 6:27 AM EST us Aspen Parr MD LAB BLOOD ORDERABLES Final Resul t [facility] [address] [place] [address], [facility] * (ABNORMAL) Hepatic Function Panel (11/06/2025 6:02 AM EST) Total Bilirubin 17.0(H) 0.0 - 1.5 mg/dL 11/06/2025 7:11 AM EST [facility] Bilirubin, Direct 9.93(H) 0.00 - 0.40 mg/dL 11/06/2025 7:11 AM EST [facility] AST 66(H) 13 - 39 U/L 11/06/2025 7:11 AM EST [facility] ALT 78(H) 7 - 52 U/L 11/06/2025 7:11 AM EST [facility] Alkaline Phosphatase 445(H) 36 - 125 U/L 11/06/2025 7:11 AM EST [facility] Total Protein 5.2(L) 6.4 - 8.9 g/dL 11/06/2025 7:11 AM EST [facility] Albumin 2.8(L) 3.5 - 5.7 g/dL 11/06/2025 7:11 AM EST [facility] Bilirubin, Indirect 7.07(H) 0.00 - 1.10 mg/dL 11/06/2025 7:11 AM EST [facility] Plasma 11/06/2025 6:02 AM EST 11/06/2025 6:27 AM EST us Aspen Parr MD LAB BLOOD ORDERABLES Final Resul t [facility] [address] * (ABNORMAL) POC Glucose Monitoring Device (11/05/2025 9:56 PM EST) POC Glucose Monitoring Device 228(H) 70 - 100 mg/dL 11/05/2025 9:58 PM EST [facility] Blood 11/05/2025 9:56 PM EST 11/05/2025 9:57 PM EST us Vani Winkler MD POINT OF CARE TEST ORDERABLE S Final Result [facility] [address] * [place] Anti-Complement (11/05/2025 8:22 PM EST) [place] Anti-complemen t 1 Negative 11/05/2025 8:22 PM EST [facility] Blood 11/05/2025 8:22 PM EST 11/05/2025 8:22 PM EST [facility] BLOOD BANK TEST ORDERABLES Final Result [facility] [address] [facility] * FR[place] Anti-IgG (11/05/2025 8:21 PM EST) [place] IgG Negative 11/05/2025 8:21 PM EST [facility] Blood 11/05/2025 8:2 1 PM EST 11/05/2025 8:21 PM EST [facility] BLOOD BANK TEST ORDERABLES Final Result Performing Organization Address [facility] de Phone Number [facility] [address] [facility] * Parvovirus B19 Quant PCR (11/05/2025 6:49 PM EST) Parvovirus B19 Quant PCR Negative Negative copies/mL 11/09/2025 9:34 PM EST [facility] Comment: No Parvovirus B19 DNA detected. The quantitative range of this assay is 500 to 10 million copies/mL. This test was developed and its performance characteristics determined by [employer]. It has not been cleared or approved by the Food and Drug Administration. The FDA has determined that such clearance or approval is not necessary. [employer] Parvo Qn PCR UPTCAL [id number] L 11/09/2025 9:34 PM EST [facility] Comment: Unable to calculate result since non-numeric result obtained for component test. Plasma Frozen 11/05/2025 6:4 9 PM EST 11/09/2025 10:06 PM EST Narrative [facility] - 11/09/2025 10:06 PM EST PERFORMED AT: [facility] [address] [id number] ASSOCIATE TEACHER: Kevin Holguin MD PHONE: [phone] Sherrie INTERIANO LAB BLOOD ORDERABLES Final Resul t Performing Organization Address [facility] Co de Phone Number [facility] [address] [facility] * (ABNORMAL) Hemoglobin Free, Plasma (11/05/2025 6:49 PM EST) Hgb, Plasma 80(H) 30 - 40 mg/dL 11/05/2025 7:46 PM EST [facility] Plasma 11/05/2025 6:49 PM EST 11/05/2025 6:55 PM EST [facility] Stveensl [facility] LAB BLOOD ORDERABLES Final Resul t Performing Organization Address [facility] Co de Phone Number [facility] [address] [facility] * (ABNORMAL) Parvovirus B19 Antibody, IgG And IgM (11/05/2025 6:49 PM EST) Parvovirus B19 IgG 6.4(H) 0.0 - 0.8 index 11/09/2025 12:54 PM EST [facility] Comment: Negative <0.9 Equivocal 0.9 - 1.1 Positive >1.1 Parvovirus B19 IgM 0.2 0.0 - 0.8 index 11/09/2025 12:54 PM EST [facility] Comment: Negative <0.9 Equivocal 0.9 - 1.1 Positive >1.1 Serum 11/05/2025 6:49 PM EST 11/09/2025 1:07 PM EST Narrative [facility] - 11/09/2025 1:07 PM EST PERFORMED AT: [facility] [address] [id number] ASSOCIATE TEACHER: Kevin Holguin MD PHONE: [phone] Sherrie INTERIANO LAB BLOOD ORDERABLES Final Resul t [facility] [address] * (ABNORMAL) CBC, STAT (11/05/2025 6:49 PM EST) WBC 9.3 3.8 - 10.8 10E3/uL 11/05/2025 7:08 PM EST [facility] RBC 2.59(L) 4.20 - 5.80 10E6/uL 11/05/2025 7:08 PM EST [facility] Hemoglobin 8.4(L) 13.2 - 17.1 g/dL 11/05/2025 7:08 PM EST [facility] Hematocrit 24.2(L) 38.5 - 50.0 % 11/05/2025 7:08 PM EST [facility] MCV 93.2 80.0 - 100.0 fL 11/05/2025 7:08 PM EST [facility] MCH 32.3 27.0 - 33.0 pg 11/05/2025 7:08 PM EST [facility] MCHC 34.7 32.0 - 36.0 g/dL 11/05/2025 7:08 PM EST [facility] RDW 18.2(H) 11.0 - 15.0 % 11/05/2025 7:08 PM EST [facility] Platelets 169 140 - 400 10E3/uL 11/05/2025 7:08 PM EST [facility] MPV 7.6 7.5 - 11.5 fL 11/05/2025 7:08 PM EST [facility] Whole Blood 11/05/2025 6:49 PM EST 11/05/2025 6:55 PM EST Sherrie Stevensl PA LAB BLOOD ORDERABLES Final Resul t [facility] [address] * Direct Antiglobulin Test (11/05/2025 6:49 PM EST) [place]ANS[place] Positive 11/05/2025 7:37 PM EST [facility] Blood 11/05/2025 6:49 PM EST 11/05/2025 6:58 PM EST Sherrie INTERIANO BLOOD BANK TEST ORDERABLES Final Result Performing Organization Address [facility]/ZIP Co de Phone Number [facility] [address] * (ABNORMAL) Reticulocyte Count, Auto (11/05/2025 6:49 PM EST) Retic Ct Pct 11.66(H) 0.50 - 2.00 % 11/05/2025 7:08 PM EST [facility] Retic Ct Abs 301,994(H) 25,000 - 90,000 /uL 11/05/2025 7:08 PM EST [facility] Immature Retic Fract 0.70(H) 0.09 - 0.56 11/05/2025 7:08 PM EST [facility] Whole Blood 11/05/2025 6:49 PM EST 11/05/2025 6:55 PM EST Sherrie INTERIANO LAB BLOOD ORDERABLES Final Resul t Performing Organization Address [facility]/ZIP Co de Phone Number [facility] [address] [facility] * Transfuse RBC Transfusion Rate: Per dept routine (11/05/2025 5:49 PM EST) Sherrie INTERIANO NURSING TREATMENT ORDERABLES - B LOOD ADMIN Final Result EXTERNAL * Transfuse RBC Transfusion Rate: Per dept routine, 1 Units (11/05/2025 5:49 PM EST) Sherrie INTERIANO NURSING TREATMENT ORDERABLES - B LOOD ADMIN Final Result Performing Organization Address [facility]/ZIP Co de Phone Number EXTERNAL * (ABNORMAL) POC Glucose Monitoring Device (11/05/2025 2:10 PM EST) POC Glucose Monitoring Device 225(H) 70 - 100 mg/dL 11/05/2025 2:10 PM EST [facility] Blood 11/05/2025 2:10 PM EST 11/05/2025 2:10 PM EST us Vani Winkler MD POINT OF CARE TEST ORDERABLE S Final Result [facility] [address] [place] [address] * LIVER BIOPSY (11/05/2025 11:35 AM EST) 11/05/2025 11:3 5 AM EST Narrative [facility] - 11/05/2025 2:47 PM EST [id number] Procedure Date: 11/05/2025 11:35 AM Patient Name: David Serrano Date of : 1960 Admit Type: Inpatient Age: 65 Gender: Male Note Status: Finalized Attending MD: Nigel Reaves MD, [id number] Procedure: Liver biopsy Indications: Abnormal Liver enzymes (no detail) Providers: Nigel Reaves MD, Pedro Pinzon MD (Fellow) Referring MD: Vani Winkler Medicines: 1% Lidocaine 9 mL SubQ, Fentanyl 50 mcg IV, Midazolam 2 mg IV Complications: No immediate complications. Procedure: Pre-Anesthesia Assessment: - Prior to the procedure, a History and Physical was performed, and patient medications and allergies were reviewed. The patient is competent. The risks and benefits of the procedure and the sedation options and risks were discussed with the patient. All questions were answered and informed consent was obtained. Patient identification and proposed procedure were verified by the physician, the nurse and the plating technician in the procedure room. Mental Status Examination: alert and oriented. Airway Examination: Mallampati Class II (the uvula but not tonsillar pillars visualized). Respiratory Examination: Non-labored breathing on room air. CV Examination: regular rate and rhythm. Prophylactic Antibiotics: The patient does not require prophylactic antibiotics. Prior Anticoagulants: The patient has taken no anticoagulant or antiplatelet agents. ASA Grade Assessment: III - A patient with severe systemic disease. After reviewing the risks and benefits, the patient was deemed in satisfactory condition to undergo the procedure. The anesthesia plan was to use moderate sedation / analgesia (conscious sedation). Immediately prior to administration of medications, the patient was re-assessed for adequacy to receive sedatives. The heart rate, respiratory rate, oxygen saturations, blood pressure, adequacy of pulmonary ventilation, and response to care were monitored throughout the procedure. The physical status of the patient was re-assessed after the procedure. Informed consent was obtained. Aseptic technique was used. The point of maximal dullness was determined by percussion. 1% Lidocaine local anesthesia was injected. The depth of the liver was confirmed.The liver biopsy was accomplished without difficulty. The patient tolerated the procedure well. Findings: A 30 mm fragmented core of tissue was obtained. The specimen was prepared with formalin and sent for histology. One pass 16 gauge in diameter was made with the [id number] gun using ultrasound to jamie the site. Verification of patient identification for the specimen was done. Estimated blood loss was minimal. Estimated Blood Loss: Estimated blood loss was minimal. Moderate Sedation: Moderate (conscious) sedation was administered by the nurse and supervised by the endoscopist. The patient's oxygen saturation, heart rate, blood pressure and response to care were monitored. Total physician intraservice time was 10 minutes. Impression: - Tissue was submitted to pathology. Recommendation: - Monitor for bleeding with site checks and vital ?signs: Q5 min x3, q15 min x4, q30 min x4. The patient can remain on his back or R side. At two hours, the patient may sit up and sip clear liquids. ?If vital signs are stable with no evidence of hemorrhage, the patient may return to hospital [facility] for ongoing care.? Resume regular diet as tolerated.? ?Follow-up on the results of the biopsy specimen. Follow-up with referring physician. Procedure Code(s): --- Professional --- 18875, GC, Biopsy of liver, needle; percutaneous 42247, GC, Ultrasonic guidance for needle placement (eg, biopsy, aspiration, injection, localization device), imaging supervision and interpretation 58309, GC, Moderate sedation services provided by the same physician or other qualified health career services assistant performing the diagnostic or therapeutic service that the sedation supports, requiring the presence of an independent trained observer to assist in the monitoring of the patient's level of consciousness and physiological status; initial 15 minutes of intraservice time, patient age 5 years or older Diagnosis Code(s): --- Professional --- R74.9, Abnormal serum enzyme level, unspecified CPT copyright 2022 [employer]. All rights reserved. The codes documented in this report are preliminary and upon sheet metal technician review may be revised to meet current compliance requirements. Attending Participation: I was present and participated during the entire procedure, including non-carcamo portions. Nigel Reaves MD Nigel Reaves MD 11/05/2025 2:47:17 PM This report has been signed electronically.MD Sherley Ross MD Pedro Pinzon MD 11/05/2025 11:40:[address] [place] [address], [facility] us Vani Winkler MD PROCEDURE/MINOR SURGICAL ORD ERABLES Final Result [facility] * Prepare RBC, leukoreduced (11/05/2025 6:15 AM EST) Product Code [id number] [facility] Unit Number [id number] HCLL Dispense Status Presumed Transfused_PT [facility]LL Blood Expiration Date HCLL Coding System [id number] HCLL Product Code [id number] [facility] Unit Number [id number] HCLL Dispense Status Presumed Transfused_PT HCLL Blood Expiration Date HCLL Coding System [id number] HCLL us Attending Provider Unknown BLOOD BANK PRODUCT OR DERABLES Final Result [facility] * (ABNORMAL) Differential (11/05/2025 6:10 AM EST) Myelocytes Relative 7.0(H) 0.0 - 0.0 % 11/05/2025 7:55 AM EST [facility] Metamyelocytes Relative 2.0(H) 0.0 - 0.0 % 11/05/2025 7:55 AM EST [facility] Neutrophils Relative 71.0 40.0 - 80.0 % 11/05/2025 7:55 AM EST [facility] Lymphocytes Relative 10.0(L) 15.0 - 45.0 % 11/05/2025 7:55 AM EST [facility] Monocytes Relative 5.0 0.0 - 12.0 % 11/05/2025 7:55 AM EST [facility] Eosinophils Relative 4.0 0.0 - 8.0 % 11/05/2025 7:55 AM EST [facility] Basophils Relative 1.0 0.0 - 1.0 % 11/05/2025 7:55 AM EST [facility] Neutrophils Absolute 9,301(H) 1,520 - 8,640 /uL 11/05/2025 7:55 AM EST [facility] nRBC 10(H) 0 - 0 /100 WBC 11/05/2025 7:55 AM EST [facility] Metamyelocytes Absolute 262(H) 0 - 0 /uL 11/05/2025 7:55 AM EST [facility] Myelocytes Absolute 917(H) 0 - 0 /uL 11/05/2025 7:55 AM EST [facility] Lymphocytes Absolute 1,310 570 - 4,860 /uL 11/05/2025 7:55 AM EST [facility] Monocytes Absolute 655 0 - 1,296 /uL 11/05/2025 7:55 AM EST [facility] Eosinophils Absolute 524 0 - 864 /uL 11/05/2025 7:55 AM EST [facility] Basophils Absolute 131(H) 0 - 108 /uL 11/05/2025 7:55 AM EST [facility] Microcytosis PRES 11/05/2025 7:55 AM EST [facility] Macrocytosis PRES 11/05/2025 7:55 AM EST [facility] [employer] 11/05/2025 7:55 AM EST [facility] [facility] PLT Morphology [place] [facility] 11/05/2025 7:55 AM EST [facility] Whole Blood 11/05/2025 6:10 AM EST 11/05/2025 7:12 AM EST [facility] - 11/05/2025 7:55 AM EST Manual WBC differential performed per review criteria approved by the certified medical transcriptionist. us Aspen Parr MD LAB BLOOD ORDERABLES Final Resul t Performing Organization Address City/[facility]/ZIP Co de Phone Number [facility] [address] * Slide Request (Make Slide and Hold) (11/05/2025 6:10 AM EST) Slide Request Done 11/05/2025 9:05 AM EST [facility] Whole Blood 11/05/2025 6:10 AM EST 11/05/2025 7:12 AM EST Narrative [facility] - 11/05/2025 12:29 PM EST Hold slide for review by->Pathologist Indication for Review:->Hemolysis/schistocytes us Sherrie INTERIANO LAB BLOOD ORDERABLES Final Resul t Performing Organization Address City/[facility]/ZIP Co de Phone Number [facility] [address] [facility]. [address] * (ABNORMAL) Haptoglobin (11/05/2025 6:10 AM EST) Haptoglobin <30(L) 44 - 215 mg/dL 11/05/2025 7:07 AM EST [facility] Serum 11/05/2025 6:10 AM EST 11/05/2025 6:29 AM EST Keith Novak MD LAB BLOOD ORDERABLES Fi nal Result Performing Organization Address City/[facility] Co de Phone Number [facility] [address] [place] [address] * (ABNORMAL) Lactate Dehydrogenase (11/05/2025 6:10 AM EST) LD 380(H) 110 - 270 U/L 11/05/2025 7:03 AM EST [facility] Plasma 11/05/2025 6:10 AM EST 11/05/2025 6:28 AM EST Keith Novak MD LAB BLOOD ORDERABLES Fi nal Result Performing Organization Address [facility] de Phone Number [address] * Tacrolimus level (11/05/2025 6:10 AM EST) Pathologist [facility] Tacrolimus (LC-MS) 8.2 3.0 - 15.0 ng/mL 11/05/2025 10:00 AM EST [facility] Comment:Performed via liquid chromatography tandem mass spectrometry. Detection limit: 1 ng/mL. Individual target concentrations may vary due to target organ and time after transplant. This test has been developed and its performance characteristics determined by [facility] which is certified under the Clinical Laboratory Improvement Amendment of 1988 (CLIA-88) to perform high complexity testing. The test has not been cleared or approved by the US Food and Drug Administration (FDA). The FDA has determined that such clearance is not necessary. The test should be used for clinical purposes and is not regarded as investigational. Whole Blood 11/05/2025 6:10 AM EST 11/05/2025 6:28 AM EST Aspen Parr MD LAB BLOOD ORDERABLES Final Resul t Performing Organization Address City/[facility]/ZIP Co de Phone Number [facility] [address] [facility] * Phosphorus (11/05/2025 6:10 AM EST) Phosphorus 2.8 2.1 - 4.7 mg/dL 11/05/2025 7:07 AM EST [facility] Plasma 11/05/2025 6:10 AM EST 11/05/2025 6:28 AM EST Aspen Parr MD LAB BLOOD ORDERABLES Final Resul t Performing Organization Address City/[facility]/ZIP Co de Phone Number [facility] [address] [facility] * Magnesium (11/05/2025 6:10 AM EST) Magnesium 1.7 1.5 - 2.5 mg/dL 11/05/2025 7:07 AM EST [facility] Plasma 11/05/2025 6:10 AM EST 11/05/2025 6:28 AM EST Aspen Parr MD LAB BLOOD ORDERABLES Final Resul t Performing Organization Address [facility] Co de Phone Number [facility] [address] [facility] * (ABNORMAL) CBC (11/05/2025 6:10 AM EST) WBC 13.1(H) 3.8 - 10.8 10E3/uL 11/05/2025 7:55 AM EST [facility] RBC 1.96(L) 4.20 - 5.80 10E6/uL 11/05/2025 7:55 AM EST [facility] Hemoglobin 7.0(L) 13.2 - 17.1 g/dL 11/05/2025 7:55 AM EST [facility] Hematocrit 18.5(L) 38.5 - 50.0 % 11/05/2025 7:55 AM EST [facility] MCV 94.4 80.0 - 100.0 fL 11/05/2025 7:55 AM EST [facility] MCH 35.4(H) 27.0 - 33.0 pg 11/05/2025 7:55 AM EST [facility] MCHC 37.5(H) 32.0 - 36.0 g/dL 11/05/2025 7:55 AM EST [facility] RDW 18.0(H) 11.0 - 15.0 % 11/05/2025 7:55 AM EST [facility] Platelets 162 140 - 400 10E3/uL 11/05/2025 7:55 AM EST [facility] MPV 7.7 7.5 - 11.5 fL 11/05/2025 7:55 AM EST [facility] Whole Blood 11/05/2025 6:10 AM EST 11/05/2025 6:28 AM EST us Aspen Parr MD LAB BLOOD ORDERABLES Final Resul t Performing Organization Address City/State/[facility] Co de Phone Number [facility] [address] * (ABNORMAL) Hepatic Function Panel (11/05/2025 6:10 AM EST) Total Bilirubin 14.2(H) 0.0 - 1.5 mg/dL 11/05/2025 7:07 AM EST [facility] Bilirubin, Direct 8.89(H) 0.00 - 0.40 mg/dL 11/05/2025 7:07 AM EST [facility] AST 74(H) 13 - 39 U/L 11/05/2025 7:07 AM [facility] ALT 65(H) 7 - 52 U/L 11/05/2025 7:07 AM EST [facility] Alkaline Phosphatase 381(H) 36 - 125 U/L 11/05/2025 7:07 AM EST [facility] Total Protein 5.0(L) 6.4 - 8.9 g/dL 11/05/2025 7:07 AM EST [facility] Albumin 2.6(L) 3.5 - 5.7 g/dL 11/05/2025 7:07 AM EST [facility] Bilirubin, Indirect 5.31(H) 0.00 - 1.10 mg/dL 11/05/2025 7:07 AM EST [facility] Plasma 11/05/2025 6:10 AM EST 11/05/2025 6:28 AM EST us Aspen Parr MD LAB BLOOD ORDERABLES Final Resul t [facility] [address] [place] [address], [facility] * (ABNORMAL) Basic metabolic panel (11/05/2025 6:10 AM EST) Sodium 137 133 - 146 mmol/L 11/05/2025 7:07 AM EST [facility] Potassium 4.1 3.5 - 5.3 mmol/L 11/05/2025 7:07 AM EST [facility] Chloride 106 98 - 110 mmol/L 11/05/2025 7:07 AM EST [facility] CO2 23 21 - 33 mmol/L 11/05/2025 7:07 AM EST [facility] Comment:High lactate dehydro genase concentrations in patient samples may cause falsely increased bicarbonate results. If markedly elevated LDH is observed or suspected, please assess results in conjunction with patient`s clinical presentation. In cases of discrepant results, consider evaluating CO2 in with a blood gas order. Anion Gap 8 3 - 16 mmol/L 11/05/2025 7:07 AM EST [facility] BUN 20 7 - 25 mg/dL 11/05/2025 7:07 AM EST [facility] Creatinine 1.20 0.60 - 1.30 mg/dL 11/05/2025 7:07 AM [facility] Glucose 147(H) 70 - 100 mg/dL 11/05/2025 7:07 AM [facility] Calcium 7.2(L) 8.6 - 10.3 mg/dL 11/05/2025 7:07 AM [facility] Osmolality, Calculated 289 278 - 305 mOsm/kg 11/05/2025 7:07 AM EST [facility] EGFR 68 11/05/2025 7:07 AM [facility] Comment:As of 2022, the [...] Disease. Am J Kidney Dis. 2020. Plasma 11/05/2025 6:10 AM EST 11/05/2025 6:28 AM EST Aspen Parr MD LAB BLOOD ORDERABLES Final Resul t Performing Organization Address City/[facility]/ZIP Co de Phone Number [facility] [address] [facility] * (ABNORMAL) POC Glucose Monitoring Device (11/05/2025 6:00 AM EST) POC Glucose Monitoring Device 169(H) 70 - 100 mg/dL 11/05/2025 6:01 AM EST [facility] Blood 11/05/2025 6:00 AM EST 11/05/2025 6:01 AM EST Vani Winkler MD POINT OF CARE TEST ORDERABLE S Final Result Performing Organization Address City/[facility]/ZIP Co de Phone Number [facility] [address] [place] [address] * (ABNORMAL) POC Glucose Monitoring Device (11/05/2025 12:11 AM EST) POC Glucose Monitoring Device 207(H) 70 - 100 mg/dL 11/05/2025 12:11 AM EST [facility] Blood 11/05/2025 12:1 1 AM EST 11/05/2025 12:11 AM EST Vani Winkler MD POINT OF CARE TEST ORDERABLE S Final Result Performing Organization Address [facility] Co de Phone Number [address] * Surgical Pathology Exam (11/05/2025 12:00 AM EST) 11/05/2025 11/06/2025 Narrative [facility] - 11/05/2025 12:00 AM EST CASE: [id number] PATIENT: DAVID SERRANO Clinical History: None Given Pre-Operative Diagnosis: None Given Post-Operative Diagnosis: None Given Specimen(s) Submitted: A. 2 Persaud Stained Peripheral Blood Smear CPT Code(s): 29125 X 1 Additional Information: FINAL DIAGNOSIS: Peripheral blood smear: - Normocytic anemia with anisocytosis and polychromasia. - Red blood cell agglutination. - No increase in schistocytes. - Mild leukocytosis with neutrophilia and few left shifted granulocytes. - No circulating blasts. Comment: Clinical correlation and follow up recommended. Complete blood count was performed at [facility] on 11/02/2025. Final Diagnosis performed by Connie Galvan MD Pathologist Electronically signed 11/07/2025 12:56:51 PM The Pathologist signing this report is located at [facility], [address] [place] [address], Pending sale to [facility] [phone], CLIA ID: [id number] Sherrie INTERIANO PATHOLOGY/CYTOLOGY ORDERABLES Fi nal Result Performing Organization Address City/[facility]/ZIP Co de Phone Number [facility] * (ABNORMAL) POC Glucose Monitoring Device (11/04/2025 6:48 PM EST) POC Glucose Monitoring Device 268(H) 70 - 100 mg/dL 11/04/2025 6:50 PM EST [facility] Blood 11/04/2025 6:48 PM EST 11/04/2025 6:49 PM EST Vani Winkler MD POINT OF CARE TEST ORDERABLE S Final Result [facility] [address] [place] [address], [facility] * (ABNORMAL) POC Glucose Monitoring Device (11/04/2025 1:00 PM EST) POC Glucose Monitoring Device 238(H) 70 - 100 mg/dL 11/04/2025 1:00 PM EST [facility] Blood 11/04/2025 1:00 PM EST 11/04/2025 1:00 PM EST us Vani Winkler MD POINT OF CARE TEST ORDERABLE S Final Result [facility] [address] [place] * Fluoro ERCP S-I (11/04/2025 11:16 AM EST) Anatomical Region Laterality Modality Abdomen Radiographic Liseth ging 11/04/2025 11:1 6 AM EST Impressions 11/04/2025 11:25 AM EST IMPRESSION: Intraoperative fluoroscopy was performed. Correlate with procedural note for additional information. Report Verified by: Antony Ernandez MD at 11/04/2025 11:25 AM EST Narrative 11/04/2025 11:25 AM EST [place] ERCP S-I TECHNIQUE : Intraoperative fluoroscopy was performed without a radiologist present. HISTORY: intra op ERCP; Hepatic encephalopathy (CMS-HCC); Pre-transplant evaluation for chronic liver disease; Encounter for pre-transplant evaluation for liver transplant FLUOROSCOPY TIME: Not reported. FINDINGS: Fluoroscopy was performed without a radiologist present. Spot images were obtained. Procedure Note Antony Ernandez MD - 11/04/2025 [place] ERCP S-I TECHNIQUE : Intraoperative fluoroscopy was performed without a radiologistpresent. HISTORY: intra op ERCP; Hepatic encephalopathy (CMS-HCC); Pre- transplantevaluation for chronic liver disease; Encounter for pre-transplantevaluation for liver transplant FLUOROSCOPY TIME: Not reported. FINDINGS: Fluoroscopy was performed without a radiologist present. Spot images wereobtained. IMPRESSION: Intraoperative fluoroscopy was performed. Correlate with procedural notefor additional information. Report Verified by: Antony Ernandez MD at 11/04/2025 11:25 AM EST Matheus Bonilla MD IMG DIAGNOSTIC IMAGING ORDERABL ES Final Result * (ABNORMAL) POC Glucose Monitoring Device (11/04/2025 9:32 AM EST) POC Glucose Monitoring Device 145(H) 70 - 100 mg/dL 11/04/2025 9:32 AM EST [facility] Blood 11/04/2025 9:32 AM EST 11/04/2025 9:32 AM EST Vani Winkler MD POINT OF CARE TEST ORDERABLE S Final Result Performing Organization Address [facility] de Phone Number [facility] [address] [place] [address]. [address] * Tacrolimus level (11/04/2025 6:15 AM EST) Pathologist [facility] Tacrolimus (LC-MS) 9.2 3.0 - 15.0 ng/mL 11/04/2025 11:55 AM EST [facility] Comment:Performed via liquid chromatography tandem mass spectrometry. Detection limit: 1 ng/mL. Individual target concentrations may vary due to target organ and time after transplant. This test has been developed and its performance characteristics determined by [facility] which is certified under the Clinical Laboratory Improvement Amendment of 1988 (CLIA-88) to perform high complexity testing. The test has not been cleared or approved by the US Food and Drug Administration (FDA). The FDA has determined that such clearance is not necessary. The test should be used for clinical purposes and is not regarded as investigational. Whole Blood 11/04/2025 6:15 AM EST 11/04/2025 6:30 AM EST Aspen Parr MD LAB BLOOD ORDERABLES Final Resul t Performing Organization Address [facility] Co de Phone Number [facility] [address] [place] [address]. [address] * Prepare RBC, leukoreduced, 2 Units (11/04/2025 6:15 AM EST) Product Code [id number] HCLL Unit Number [id number] HCLL Dispense Status Presumed Transfused_PT HCLL Blood Expiration Date HCLL Coding System [id number] HCLL Product Code [id number] HCLL Unit Number [id number] HCLL Dispense Status Released from Crossmatch_RE HCLL Blood Expiration Date HCLL Coding System [id number] HCLL Blood Bank Product Aspen Parr MD BLOOD BANK PRODUCT ORDERABLES Fi nal Result HCLL * (ABNORMAL) POC Glucose Monitoring Device (11/04/2025 5:18 AM EST) Pathologist [facility] POC Glucose Monitoring Device 152(H) 70 - 100 mg/dL 11/04/2025 5:19 AM EST [facility] Blood 11/04/2025 5:18 AM EST 11/04/2025 5:19 AM EST Vani Winkler MD POINT OF CARE TEST ORDERABLE S Final Result Performing Organization Address [facility] Co de Phone Number [address] * Phosphorus (11/04/2025 3:39 AM EST) Pathologist [facility] Phosphorus 3.4 2.1 - 4.7 mg/dL 11/04/2025 4:36 AM EST [facility] Plasma 11/04/2025 3:39 AM EST 11/04/2025 3:45 AM EST Aspen Parr MD LAB BLOOD ORDERABLES Final Resul t Performing Organization Address [facility] Co de Phone Number [facility] [address] [facility] * Magnesium (11/04/2025 3:39 AM EST) Magnesium 1.7 1.5 - 2.5 mg/dL 11/04/2025 4:36 AM EST [facility] Plasma 11/04/2025 3:39 AM EST 11/04/2025 3:45 AM EST us Aspen Parr MD LAB BLOOD ORDERABLES Final Resul t [facility] [address] [place], [place] [address] * (ABNORMAL) CBC (11/04/2025 3:39 AM EST) WBC 14.0(H) 3.8 - 10.8 10E3/uL 11/04/2025 5:22 AM EST [facility] Comment:WBC VERIFIED RBC 2.59(L) 4.20 - 5.80 10E6/uL 11/04/2025 5:22 AM EST [facility] Hemoglobin 8.5(L) 13.2 - 17.1 g/dL 11/04/2025 5:22 AM [facility] Hematocrit 23.9(L) 38.5 - 50.0 % 11/04/2025 5:22 AM EST [facility] MCV 92.4 80.0 - 100.0 fL 11/04/2025 5:22 AM EST [facility] MCH 33.0 27.0 - 33.0 pg 11/04/2025 5:22 AM [facility] MCHC 35.7 32.0 - 36.0 g/dL 11/04/2025 5:22 AM [facility] Comment:Specimen warmed. RDW 17.8(H) 11.0 - 15.0 % 11/04/2025 5:22 AM EST [facility] Platelets 223 140 - 400 10E3/uL 11/04/2025 5:22 AM [facility] Comment:Specimen checked for clots. None detected. MPV 7.5 7.5 - 11.5 fL 11/04/2025 5:22 AM EST [facility] Whole Blood 11/04/2025 3:39 AM EST 11/04/2025 3:45 AM EST us Aspen Parr MD LAB BLOOD ORDERABLES Final Resul t [facility] [address] [place] [address], [facility] * (ABNORMAL) Basic metabolic panel (11/04/2025 3:39 AM EST) Sodium 136 133 - 146 mmol/L 11/04/2025 4:36 AM EST [facility] Potassium 4.2 3.5 - 5.3 mmol/L 11/04/2025 4:36 AM EST [facility] Chloride 106 98 - 110 mmol/L 11/04/2025 4:36 AM EST [facility] CO2 23 21 - 33 mmol/L 11/04/2025 4:36 AM EST [facility] Comment:High lactate dehydro genase concentrations in patient samples may cause falsely increased bicarbonate results. If markedly elevated LDH is observed or suspected, please assess results in conjunction with patient`s clinical presentation. In cases of discrepant results, consider evaluating CO2 in with a blood gas order. Anion Gap 7 3 - 16 mmol/L 11/04/2025 4:36 AM EST [facility] BUN 19 7 - 25 mg/dL 11/04/2025 4:36 AM EST [facility] Creatinine 1.04 0.60 - 1.30 mg/dL 11/04/2025 4:36 AM EST [facility] Glucose 123(H) 70 - 100 mg/dL 11/04/2025 4:36 AM EST [facility] Calcium 7.9(L) 8.6 - 10.3 mg/dL 11/04/2025 4:36 AM EST [facility] Osmolality, Calculated 286 278 - 305 mOsm/kg 11/04/2025 4:36 AM EST [facility] EGFR 80 11/04/2025 4:36 AM EST [facility] Comment:As of 2022, the estimated [...] Disease. Am J Kidney Dis. 2020. Plasma 11/04/2025 3:39 AM EST 11/04/2025 3:45 AM EST us Aspen Parr MD LAB BLOOD ORDERABLES Final Resul t [facility] [address] [place] [address], [facility] * (ABNORMAL) Hepatic Function Panel (11/04/2025 3:39 AM EST) Total Bilirubin 7.1(H) 0.0 - 1.5 mg/dL 11/04/2025 4:36 AM EST [facility] Bilirubin, Direct 4.22(H) 0.00 - 0.40 mg/dL 11/04/2025 4:36 AM EST [facility] AST 40(H) 13 - 39 U/L 11/04/2025 4:36 AM EST [facility] ALT 56(H) 7 - 52 U/L 11/04/2025 4:36 AM EST [facility] Alkaline Phosphatase 325(H) 36 - 125 U/L 11/04/2025 4:36 AM EST [facility] Total Protein 5.9(L) 6.4 - 8.9 g/dL 11/04/2025 4:36 AM EST [facility] Albumin 2.9(L) 3.5 - 5.7 g/dL 11/04/2025 4:36 AM EST [facility] Bilirubin, Indirect 2.88(H) 0.00 - 1.10 mg/dL 11/04/2025 4:36 AM EST [facility] Plasma 11/04/2025 3:39 AM EST 11/04/2025 3:45 AM EST Aspen Parr MD LAB BLOOD ORDERABLES Final Resul t Performing Organization Address [facility]/ZIP Co de Phone Number [facility] [address] * Transfuse RBC Transfusion Rate: Per dept routine (11/04/2025 2:10 AM EST) us Nathalie Cohen MD NURSING TREATMENT ORDERABLES - BLOOD ADMIN Final Result Performing Organization Address [facility] Co de Phone Number EXTERNAL * Transfuse RBC Transfusion Rate: Per dept routine, 1 Units (11/04/2025 2:10 AM EST) us Nathalie Cohen MD NURSING TREATMENT ORDERABLES - BLOOD ADMIN Final Result Performing Organization Address [facility] Co de Phone Number EXTERNAL * (ABNORMAL) POC Glucose Monitoring Device (11/03/2025 11:38 PM EST) POC Glucose Monitoring Device 145(H) 70 - 100 mg/dL 11/03/2025 11:38 PM EST [facility] Blood 11/03/2025 11:3 8 PM EST 11/03/2025 11:38 PM EST us Vani Winkler MD POINT OF CARE TEST ORDERABLE S Final Result Performing Organization Address [facility] de Phone Number [facility] [address] [facility] * (ABNORMAL) CBC (11/03/2025 9:14 PM EST) WBC 13.2(H) 3.8 - 10.8 10E3/uL 11/03/2025 10:47 PM EST [facility] RBC 2.13(L) 4.20 - 5.80 10E6/uL 11/03/2025 10:47 PM EST [facility] Hemoglobin 7.2(L) 13.2 - 17.1 g/dL 11/03/2025 10:47 PM EST [facility] Hematocrit 20.1(L) 38.5 - 50.0 % 11/03/2025 10:47 PM EST [facility] MCV 94.3 80.0 - 100.0 fL 11/03/2025 10:47 PM EST [facility] MCH 33.6(H) 27.0 - 33.0 pg 11/03/2025 10:47 PM EST [facility] MCHC 35.6 32.0 - 36.0 g/dL 11/03/2025 10:47 PM EST [facility] RDW 17.9(H) 11.0 - 15.0 % 11/03/2025 10:47 PM EST [facility] Platelets 240 140 - 400 10E3/uL 11/03/2025 10:47 PM EST [facility] MPV 7.6 7.5 - 11.5 fL 11/03/2025 10:47 PM EST [facility] Whole Blood 11/03/2025 9:14 PM EST 11/03/2025 9:17 PM EST Keith Grimm [employer] LAB BLOOD ORDERABLES Final Resu lt [facility] [address] [facility] * (ABNORMAL) POC Glucose Monitoring Device (11/03/2025 6:00 PM EST) POC Glucose Monitoring Device 345(H) 70 - 100 mg/dL 11/03/2025 6:00 PM EST [facility] Blood 11/03/2025 6:00 PM EST 11/03/2025 6:00 PM EST Vani Winkler MD POINT OF CARE TEST ORDERABLE S Final Result [facility] [address] [facility] * (ABNORMAL) Haptoglobin (11/03/2025 1:52 PM EST) Haptoglobin <30(L) 44 - 215 mg/dL 11/03/2025 2:31 PM EST [facility] Serum 11/03/2025 1:52 PM EST 11/03/2025 1:56 PM EST us Keith Grimm CNP LAB BLOOD ORDERABLES Final Resu lt [facility] [address] * (ABNORMAL) Lactate Dehydrogenase (11/03/2025 1:52 PM EST) LD 293(H) 110 - 270 U/L 11/03/2025 2:23 PM EST [facility] Plasma 11/03/2025 1:52 PM EST 11/03/2025 1:55 PM EST Keith Grimm [facility] LAB BLOOD ORDERABLES Final Resu lt [facility] [address] [facility] * (ABNORMAL) CBC (11/03/2025 1:52 PM EST) Pathologist [facility] WBC 11.3(H) 3.8 - 10.8 10E3/uL 11/03/2025 2:55 PM EST [facility] RBC 2.01(L) 4.20 - 5.80 10E6/uL 11/03/2025 2:55 PM EST [facility] Hemoglobin 7.1(L) 13.2 - 17.1 g/dL 11/03/2025 2:55 PM EST [facility] Hematocrit 19.3(L) 38.5 - 50.0 % 11/03/2025 2:55 PM EST [facility] MCV 95.9 80.0 - 100.0 fL 11/03/2025 2:55 PM EST [facility] MCH 35.2(H) 27.0 - 33.0 pg 11/03/2025 2:55 PM EST [facility] MCHC 36.7(H) 32.0 - 36.0 g/dL 11/03/2025 2:55 PM EST [facility] RDW 17.3(H) 11.0 - 15.0 % 11/03/2025 2:55 PM EST [facility] Platelets 220 140 - 400 10E3/uL 11/03/2025 2:55 PM EST [facility] Comment:Specimen checked for clots. None detected. MPV 7.5 7.5 - 11.5 fL 11/03/2025 2:55 PM EST [facility] Whole Blood 11/03/2025 1:52 PM EST 11/03/2025 1:56 PM EST us Keith Shah Alfa [facility] LAB BLOOD ORDERABLES Final Resu lt Performing Organization Address [facility] Co de Phone Number [facility] [address] [facility] * (ABNORMAL) POC Glucose Monitoring Device (11/03/2025 11:47 AM EST) POC Glucose Monitoring Device 225(H) 70 - 100 mg/dL 11/03/2025 11:49 AM EST [facility] Blood 11/03/2025 11:4 7 AM EST 11/03/2025 11:49 AM EST us Vani Winkler MD POINT OF CARE TEST ORDERABLE S Final Result Performing Organization Address [facility] Co de Phone Number [facility] [address] [facility] * Transfuse RBC Transfusion Rate: Per dept routine (11/03/2025 10:28 AM EST) Aspen Parr MD NURSING TREATMENT ORDERABLES - B LOOD ADMIN Final Result Performing Organization Address [facility] Co de Phone Number EXTERNAL * Transfuse RBC Transfusion Rate: Per dept routine, 2 Units (11/03/2025 10:28 AM EST) us Aspen Parr MD NURSING TREATMENT ORDERABLES - B LOOD ADMIN Edited Result - Final Performing Organization Address [facility] Co de Phone Number EXTERNAL * US Abdomen Limited (11/03/2025 10:05 AM EST) Anatomical Region Laterality Modality Abdomen, Pelvis Ultrasound 11/03/2025 9:08 AM EST Impressions 11/03/2025 11:24 AM EST IMPRESSION: RIGHT UPPER QUADRANT Hypoenhancing areas in the liver seen on the previous CT are not well visualized on ultrasound. Hematoma adjacent to the left hepatic lobe measuring 5.1 x 3 x 5.6 cm.. LIVER DOPPLER Patent hepatic transplant vasculature. Report Verified by: Lori Noble MD at 11/03/2025 11:24 AM EST Narrative 11/03/2025 11:24 AM EST EXAM: US ABDOMEN LIMITED EXAM: US DUPLEX [id number] COMPLETE INDICATION: Other - Must specify in Comments field COMPARISON: CT abdomen pelvis from earlier today. Ultrasound 10/22/2025. TECHNIQUE: Grayscale imaging was performed with attention to the right upper quadrant; color and spectral (duplex) Doppler analysis of the hepatic vasculature was also performed. FINDINGS: Liver: Hypoenhancing areas in the liver seen on the previous CT are not well visualized on ultrasound. Hematoma adjacent to the left hepatic lobe measuring 5.1 x 3 x 5.6 cm. Small amount of fluid adjacent to the hepatic transplant. Biliary/CBD: 4 mm. No intra or extrahepatic ductal dilatation. Gallbladder: Surgically absent.. Pancreas: Obscured by overlying bowel gas. Right kidney: 13 cm in length. Normal parenchymal echogenicity. No hydronephrosis. Other: Small amount of free fluid. DOPPLER: Hepatic Veins: Duplex evaluation of the hepatic vasculature demonstrates normal flow in the right, middle and left hepatic veins. Portal Veins: The right, left and main portal vein demonstrate hepatopetal flow. Hepatic Arteries: Right, main and left hepatic arteries demonstrate normal waveforms. Resistive Indices Main hepatic artery: 0.71-0.84 Right hepatic artery: 0.67 Left hepatic artery: 0.59-0.61 Procedure Note Lori Noble MD - 11/03/2025 EXAM: US ABDOMEN LIMITED EXAM: US DUPLEX [id number] COMPLETE INDICATION: Other - Must specify in Comments field COMPARISON: CT abdomen pelvis from earlier today. Ultrasound 10/22/2025. TECHNIQUE: Grayscale imaging was performed with attention to the rightupper quadrant; color and spectral (duplex) Doppler analysis of thehepatic vasculature was also performed. FINDINGS: Liver: Hypoenhancing areas in the liver seen on the previous CT are notwell visualized on ultrasound. Hematoma adjacent to the left hepatic lobemeasuring 5.1 x 3 x 5.6 cm. Small amount of fluid adjacent to the hepatictransplant. Biliary/CBD: 4 mm. No intra or extrahepatic ductal dilatation. Gallbladder: Surgically absent.. Pancreas: Obscured by overlying bowel gas. Right kidney: 13 cm in length. Normal parenchymal echogenicity. Nohydronephrosis. Other: Small amount of free fluid. DOPPLER: Hepatic Veins: Duplex evaluation of the hepatic vasculature demonstratesnormal flow in the right, middle and left hepatic veins. Portal Veins: The right, left and main portal vein demonstrate hepatopetalflow. Hepatic Arteries: Right, main and left hepatic arteries demonstrate normalwaveforms. Resistive Indices Main hepatic artery: 0.71-0.84 Right hepatic artery: 0.67 Left hepatic artery: 0.59-0.61 IMPRESSION: RIGHT UPPER QUADRANT Hypoenhancing areas in the liver seen on the previous CT are not wellvisualized on ultrasound. Hematoma adjacent to the left hepatic lobemeasuring 5.1 x 3 x 5.6 cm.. LIVER DOPPLER Patent hepatic transplant vasculature. Report Verified by: Lori Noble MD at 11/03/2025 11:24 AM EST us Aspen Parr [place] [facility] [place] Final Result * US Duplex [id number] (11/03/2025 10:05 AM EST) Anatomical Region Laterality Modality Abdomen, Pelvis, Testes, Vascular Ultrasound 11/03/2025 9:08 AM EST Impressions 11/03/2025 11:24 AM EST IMPRESSION: RIGHT UPPER QUADRANT Hypoenhancing areas in the liver seen on the previous CT are not well visualized on ultrasound. Hematoma adjacent to the left hepatic lobe measuring 5.1 x 3 x 5.6 cm.. LIVER DOPPLER Patent hepatic transplant vasculature. Report Verified by: Lori Noble MD at 11/03/2025 11:24 AM EST Narrative 11/03/2025 11:24 AM EST EXAM: US ABDOMEN LIMITED EXAM: US DUPLEX [id number] COMPLETE INDICATION: Other - Must specify in Comments field COMPARISON: CT abdomen pelvis from earlier today. Ultrasound 10/22/2025. TECHNIQUE: Grayscale imaging was performed with attention to the right upper quadrant; color and spectral (duplex) Doppler analysis of the hepatic vasculature was also performed. FINDINGS: Liver: Hypoenhancing areas in the liver seen on the previous CT are not well visualized on ultrasound. Hematoma adjacent to the left hepatic lobe measuring 5.1 x 3 x 5.6 cm. Small amount of fluid adjacent to the hepatic transplant. Biliary/CBD: 4 mm. No intra or extrahepatic ductal dilatation. Gallbladder: Surgically absent.. Pancreas: Obscured by overlying bowel gas. Right kidney: 13 cm in length. Normal parenchymal echogenicity. No hydronephrosis. Other: Small amount of free fluid. DOPPLER: Hepatic Veins: Duplex evaluation of the hepatic vasculature demonstrates normal flow in the right, middle and left hepatic veins. Portal Veins: The right, left and main portal vein demonstrate hepatopetal flow. Hepatic Arteries: Right, main and left hepatic arteries demonstrate normal waveforms. Resistive Indices Main hepatic artery: 0.71-0.84 Right hepatic artery: 0.67 Left hepatic artery: 0.59-0.61 Procedure Note Lori Noble MD - 11/03/2025 EXAM: US ABDOMEN LIMITED EXAM: US DUPLEX [id number] COMPLETE INDICATION: Other - Must specify in Comments field COMPARISON: CT abdomen pelvis from earlier today. Ultrasound 10/22/2025. TECHNIQUE: Grayscale imaging was performed with attention to the rightupper quadrant; color and spectral (duplex) Doppler analysis of thehepatic vasculature was also performed. FINDINGS: Liver: Hypoenhancing areas in the liver seen on the previous CT are notwell visualized on ultrasound. Hematoma adjacent to the left hepatic lobemeasuring 5.1 x 3 x 5.6 cm. Small amount of fluid adjacent to the hepatictransplant. Biliary/CBD: 4 mm. No intra or extrahepatic ductal dilatation. Gallbladder: Surgically absent.. Pancreas: Obscured by overlying bowel gas. Right kidney: 13 cm in length. Normal parenchymal echogenicity. Nohydronephrosis. Other: Small amount of free fluid. DOPPLER: Hepatic Veins: Duplex evaluation of the hepatic vasculature demonstratesnormal flow in the right, middle and left hepatic veins. Portal Veins: The right, left and main portal vein demonstrate hepatopetalflow. Hepatic Arteries: Right, main and left hepatic arteries demonstrate normalwaveforms. Resistive Indices Main hepatic artery: 0.71-0.84 Right hepatic artery: 0.67 Left hepatic artery: 0.59-0.61 IMPRESSION: RIGHT UPPER QUADRANT Hypoenhancing areas in the liver seen on the previous CT are not wellvisualized on ultrasound. Hematoma adjacent to the left hepatic lobemeasuring 5.1 x 3 x 5.6 cm.. LIVER DOPPLER Patent hepatic transplant vasculature. Report Verified by: Lori Noble MD at 11/03/2025 11:24 AM EST Aspen Parr MD [facility] [place]LES Final Result * Tacrolimus level (11/03/2025 6:46 AM EST) Tacrolimus (LC-MS) 9.2 3.0 - 15.0 ng/mL 11/03/2025 12:32 PM EST [facility] Comment:Performed via liquid chromatography tandem mass spectrometry. Detection limit: 1 ng/mL. Individual target concentrations may vary due to target organ and time after transplant. This test has been developed and its performance characteristics determined by [facility] which is certified under the Clinical Laboratory Improvement Amendment of 1988 (CLIA-88) to perform high complexity testing. The test has not been cleared or approved by the US Food and Drug Administration (FDA). The FDA has determined that such clearance is not necessary. The test should be used for clinical purposes and is not regarded as investigational. Whole Blood 11/03/2025 6:46 AM EST 11/03/2025 6:54 AM EST Aspen Parr MD LAB BLOOD ORDERABLES Final Resul t Performing Organization Address [facility] de Phone Number [facility] [address] [facility] * Phosphorus (11/03/2025 6:46 AM EST) Phosphorus 3.1 2.1 - 4.7 mg/dL 11/03/2025 8:18 AM EST [facility] Plasma 11/03/2025 6:46 AM EST 11/03/2025 6:54 AM EST Aspen Parr MD LAB BLOOD ORDERABLES Final Resul t Performing Organization Address [facility] de Phone Number [facility] [address] * Magnesium (11/03/2025 6:46 AM EST) Magnesium 1.6 1.5 - 2.5 mg/dL 11/03/2025 8:18 AM EST [facility] Plasma 11/03/2025 6:46 AM EST 11/03/2025 6:54 AM EST us Aspen Parr MD LAB BLOOD ORDERABLES Final Resul t [facility] [address] [place] [address], [facility] * (ABNORMAL) CBC (11/03/2025 6:46 AM EST) WBC 12.6(H) 3.8 - 10.8 10E3/uL 11/03/2025 9:08 AM EST [facility] RBC 1.78(L) 4.20 - 5.80 10E6/uL 11/03/2025 9:08 AM EST [facility] Hemoglobin 6.2(L) 13.2 - 17.1 g/dL 11/03/2025 9:08 AM EST [facility] Hematocrit 17.2(L) 38.5 - 50.0 % 11/03/2025 9:08 AM EST [facility] MCV 96.6 80.0 - 100.0 fL 11/03/2025 9:08 AM EST [facility] MCH 34.8(H) 27.0 - 33.0 pg 11/03/2025 9:08 AM EST [facility] MCHC 36.1(H) 32.0 - 36.0 g/dL 11/03/2025 9:08 AM EST [facility] RDW 17.8(H) 11.0 - 15.0 % 11/03/2025 9:08 AM EST [facility] Platelets 228 140 - 400 10E3/uL 11/03/2025 9:08 AM EST [facility] MPV 7.4(L) 7.5 - 11.5 fL 11/03/2025 9:08 AM EST [facility] Whole Blood 11/03/2025 6:46 AM EST 11/03/2025 6:54 AM EST us Aspen Parr MD LAB BLOOD ORDERABLES Final Resul t [facility] [address] [place] [address], [facility] * (ABNORMAL) Basic metabolic panel (11/03/2025 6:46 AM EST) Sodium 133 133 - 146 mmol/L 11/03/2025 8:18 AM EST [facility] Potassium 3.9 3.5 - 5.3 mmol/L 11/03/2025 8:18 AM EST [facility] Chloride 105 98 - 110 mmol/L 11/03/2025 8:18 AM EST [facility] CO2 21 21 - 33 mmol/L 11/03/2025 8:18 AM EST [facility] Comment:High lactate dehydro genase concentrations in patient samples may cause falsely increased bicarbonate results. If markedly elevated LDH is observed or suspected, please assess results in conjunction with patient`s clinical presentation. In cases of discrepant results, consider evaluating CO2 in with a blood gas order. Anion Gap 7 3 - 16 mmol/L 11/03/2025 8:18 AM EST [facility] BUN 25 7 - 25 mg/dL 11/03/2025 8:18 AM EST [facility] Creatinine 1.00 0.60 - 1.30 mg/dL 11/03/2025 8:18 AM EST [facility] Glucose 144(H) 70 - 100 mg/dL 11/03/2025 8:18 AM EST [facility] Calcium 7.9(L) 8.6 - 10.3 mg/dL 11/03/2025 8:18 AM EST [facility] Osmolality, Calculated 283 278 - 305 mOsm/kg 11/03/2025 8:18 AM EST [facility] EGFR 84 11/03/2025 8:18 AM EST [facility] Comment:As of 2022, the estimated [...] Disease. Am J Kidney Dis. 2020. Plasma 11/03/2025 6:46 AM EST 11/03/2025 6:54 AM EST us Aspen Parr MD LAB BLOOD ORDERABLES Final Resul t [facility] [address] [place] [address], [facility] * (ABNORMAL) Hepatic Function Panel (11/03/2025 6:46 AM EST) Total Bilirubin 9.2(H) 0.0 - 1.5 mg/dL 11/03/2025 8:18 AM EST [facility] Bilirubin, Direct 5.59(H) 0.00 - 0.40 mg/dL 11/03/2025 8:18 AM EST [facility] AST 47(H) 13 - 39 U/L 11/03/2025 8:18 AM EST [facility] ALT 59(H) 7 - 52 U/L 11/03/2025 8:18 AM EST [facility] Alkaline Phosphatase 303(H) 36 - 125 U/L 11/03/2025 8:18 AM EST [facility] Total Protein 5.1(L) 6.4 - 8.9 g/dL 11/03/2025 8:18 AM EST [facility] Albumin 2.7(L) 3.5 - 5.7 g/dL 11/03/2025 8:18 AM EST [facility] Bilirubin, Indirect 3.61(H) 0.00 - 1.10 mg/dL 11/03/2025 8:18 AM EST [facility] Plasma 11/03/2025 6:46 AM EST 11/03/2025 6:54 AM EST us Aspen Parr MD LAB BLOOD ORDERABLES Final Resul t Performing Organization Address [facility] de Phone Number [facility] [address] [facility] * Transfuse RBC Transfusion Rate: Per dept routine (11/03/2025 6:23 AM EST) us Aspen Parr MD NURSING TREATMENT ORDERABLES - B LOOD ADMIN Final Result Performing Organization Address [facility] de Phone Number EXTERNAL * (ABNORMAL) POC Glucose Monitoring Device (11/03/2025 5:45 AM EST) [facility] POC Glucose Monitoring Device 173(H) 70 - 100 mg/dL 11/03/2025 5:46 AM EST [facility] Blood 11/03/2025 5:45 AM EST 11/03/2025 5:46 AM EST Vani Winkler MD POINT OF CARE TEST ORDERABLE S Final Result Performing Organization Address [facility] de Phone Number [facility] [address] [facility] * Clostridium difficile DNA Amplification (11/03/2025 5:21 AM EST) [facility] Clost. Diff DNA Amp. Negative Negative 11/03/2025 5:50 PM EST [facility] Comment:Positive indicates t oxigenic C. difficile was detected in the sample. Negative indicates that toxigenic C. difficile was not detected above the limit of the detection of the assay. The test methodology is a FDA approved DNA amplification assay. Stool, Liquid FECES / Unknown 11/03/2025 5:21 AM EST 11/03/2025 7:45 AM EST Comment:F us Aspen Parr MD BODY FLUIDS AND STOOLS ORDERABLE S Final Result Performing Organization Address [facility] Co de Phone Number [facility] [address] [facility] * Enteric Pathogen Panel (11/03/2025 5:21 AM EST) Campylobacter Group (C. ecoli, C. jejuni, C. carie) Not Detected Not Detected 11/03/2025 11:16 AM EST [facility] Salmonella species Not Detected Not Detected 11/03/2025 11:16 AM EST [facility] Shigella species Not Detected Not Detected 11/03/2025 11:16 AM EST [facility] Vibrio Group (Vibrio cholerae, Vibrio parahaemolyticus) Not Detected Not Detected 11/03/2025 11:16 AM EST [facility] Yersinia enterocolitica Not Detected Not Detected 11/03/2025 11:16 AM EST [facility] Shiga toxin 1 Not Detected Not Detected 11/03/2025 11:16 AM EST [facility] Shiga toxin 2 Not Detected Not Detected 11/03/2025 11:16 AM EST [facility] Norovirus Not Detected Not Detected 11/03/2025 11:16 AM EST [facility] Rotavirus Not Detected Not Detected 11/03/2025 11:16 AM EST [facility] Comment: The Enteric Pathogen Panel is an FDA-approved nucleic acid amplification test that detects 2 different viral targets and 7 bacterial targets in stool specimens. This assay does not test for Aeromonas and Pleisomonas, which may be potential enteric pathogens. If testing for these organisms is warranted, please contact the Microbiology laboratory. Negative results do not rule out the presence of viral, bacterial, or parasitic infections. Infections with more than a single agent have been reported. For further information, call the micro laboratory. Feces FECES / Unknown 11/03/2025 5 :21 AM EST 11/03/2025 7:45 AM EST Comment:F Narrative [facility] - 11/03/2025 11:16 AM EST The specimen was leaking upon receipt in the laboratory.Results may be affected. us Aspen Parr MD BODY FLUIDS AND STOOLS ORDERABLE S Final Result [facility] [address] [facility]. [place] [id number] * Histoplasma/Blastomyces Ag, EIA, U (11/03/2025 3:20 AM EST) Histoplasma/Blasto myces Ag Result (Urine) Not Detected Not Detected 11/10/2025 10:50 AM EST [facility] Comment: No antigen from Histoplasma or Blastomyces detected. False negative results may occur depending on extent of disease, and/or site of infection. Repeat testing on a new specimen if clinically indicated. Histoplasma/Blasto myces Ag Value (Urine) Not Detected ng/mL 11/10/2025 10:50 AM EST [facility] Comment: ADDITIONAL INFORMATION This test was developed and its performance characteristics determined by [facility] in a manner consistent with CLIA requirements. This test has not been cleared or approved by the U.S. Food and Drug Administration. Test Performed by: [facility] - [address] [address] [employer] Business Analyst: Katherin Galindo Ph.D.; CLIA# [id number] Urine URINE SPECIMEN / Unknown 11/03/2025 3:20 AM EST 11/10/2025 10:50 AM EST Aspen Parr MD URINE ORDERABLES Final Result [facility] [address] [place] [address], [facility] * (ABNORMAL) Respiratory viral panel (11/03/2025 2:51 AM EST) Adenovirus Not Detected Not Detected 11/03/2025 6:09 AM EST [facility] Coronavirus (229E,HKU1,NL63,OC 43) Detected(A) Not Detected 11/03/2025 6:09 AM EST [facility] SARS-CoV-2 Not Detected Not Detected 11/03/2025 6:09 AM EST [facility] Human Metapneumovirus Not Detected Not Detected 11/03/2025 6:09 AM EST [facility] Human Rhinovirus/Enterov irus Not Detected Not Detected 11/03/2025 6:09 AM EST [facility] Influenza A Not Detected Not Detected 11/03/2025 6:09 AM EST [facility] Influenza A H1 Not Detected Not Detected 11/03/2025 6:09 AM EST [facility] Influenza A/H1-2009 Not Detected Not Detected 11/03/2025 6:09 AM EST [facility] Influenza A H3 Not Detected Not Detected 11/03/2025 6:09 AM [facility] Influenza B Not Detected Not Detected 11/03/2025 6:09 AM [facility] Parainfluenza 1 Not Detected Not Detected 11/03/2025 6:09 AM EST [facility] Parainfluenza 2 Not Detected Not Detected 11/03/2025 6:09 AM [facility] Parainfluenza 3 Not Detected Not Detected 11/03/2025 6:09 AM [facility] Parainfluenza 4 Not Detected Not Detected 11/03/2025 6:09 AM EST [facility] Resp. Syncycial Virus A Not Detected Not Detected 11/03/2025 6:09 AM EST [facility] Resp. Syncycial Virus B Not Detected Not Detected 11/03/2025 6:09 AM [facility] Chlamydia pneumoniae Not Detected Not Detected 11/03/2025 6:09 AM [facility] Mycoplasma pneumoniae Not Detected Not Detected 11/03/2025 6:09 AM [facility] Comment: The Respiratory Viral-Bacterial Panel is an FDA-approved nucleic acid amplification test that detects 16 different viral targets and 2 bacterial targets in nasopharyngeal specimens. Negative results do not rule out the presence of viral, bacterial, or fungal infections. Infections with more than a single agent have been reported. This test has been authorized by the FDA under an Emergency Use Authorization (EUA). This test is used for clinical purposes. This test has been validated in accordance with the FDA's guidance document Policy for Diagnostic Tests for Coronavirus Disease-2019 during the Public Health Emergency issued on January 29, 2020. This test is only authorized for use during the time specified by the declaration that circumstances exist justifying the authorization of the emergency use of in vitro diagnostic tests for the detection of SARS-CoV2 virus and/or diagnosis of COVID- 19 infection under section 564(B)(1) of the Act, 21 U.S.C. 360bbb-3 (b)(1) applies, unless authorization is terminated or revoked sooner. Test results have been sent to the [facility] in accordance with state requirements. For a fact sheet for healthcare providers, see https://www.fda.gov/media/036528/download. For a fact sheet for patients, see https://www.fda.gov/media/322036/download. Nasopharyngeal Swab NASOPHARYNGEAL STRUCTURE / Unknown 11/03/2025 2:51 AM EST 11/03/2025 3:40 AM EST Aspen Parr MD BODY FLUIDS AND STOOLS ORDERABLE S Final Result Performing Organization Address [facility] de Phone Number [facility] [address] [place] [address]. [address] * Strep Pneumo-Legionella Urine Antigen (11/03/2025 2:51 AM EST) Strept Pneumo Ag Negative Negative 11/03/2025 6:12 AM EST [facility] Legionella Antigen Negative Negative 11/03/2025 6:12 AM EST [facility] Urine URINE SPECIMEN / Unknown 11/03/2025 2:51 AM EST 11/03/2025 3:39 AM EST Narrative [facility] - 11/03/2025 6:12 AM EST Positive indicates detection of either Streptococcus pneumoniae antigen or Legionella pneumophila serogroup 1 antigen. Negative results do not rule out pneumococcal infection or infection with L. pneumophila serogroup 1, other serogroups of L. pneumophila, or other Legionella species. Aspen Parr MD URINE ORDERABLES Final Result Performing Organization Address [facility] de Phone Number [facility] [address] [place] [address]. [address] * (ABNORMAL) Urinalysis w/Rfl to Microscopic (11/03/2025 2:51 AM EST) Color, UA Yellow Yellow,Straw 11/03/2025 3:32 AM EST [facility] Clarity, UA Clear Clear 11/03/2025 3:32 AM EST [facility] Specific [place], UA >1.035(H) 1.005 - 1.035 11/03/2025 3:32 AM EST [facility] pH, UA 6.5 5.0 - 8.0 11/03/2025 3:32 AM EST [facility] Protein, UA Negative Negative mg/dL 11/03/2025 3:32 AM EST [facility] Glucose, UA Negative Negative mg/dL 11/03/2025 3:32 AM EST [facility] Ketones, UA Negative Negative mg/dL 11/03/2025 3:32 AM EST [facility] Bilirubin, UA Negative Negative 11/03/2025 3:32 AM EST [facility] Blood, UA Negative Negative 11/03/2025 3:32 AM EST [facility] Nitrite, UA Negative Negative 11/03/2025 3:32 AM EST [facility] Urobilinogen, UA <2.0 0.2 - 1.9 mg/dL 11/03/2025 3:32 AM EST [facility] Leukocyte Esterase, UA Small(A) Negative 11/03/2025 3:32 AM EST [facility] RBC, UA 3 0 - 3 /HPF 11/03/2025 3:32 AM EST [facility] WBC, UA 16(H) 0 - 5 /HPF 11/03/2025 3:32 AM EST [facility] Squam Epithel, UA <1 0 - 5 /HPF 11/03/2025 3:32 AM EST [facility] Urine 11/03/2025 2:51 AM EST 11/03/2025 2:59 AM EST Aspen Parr MD URINE ORDERABLES Final Result Performing Organization Address City/State/[facility] de Phone Number [facility] [address] [place] [address], [facility] * CT Abdomen and Pelvis With IV contrast (11/03/2025 1:21 AM EST) Anatomical Region Laterality Modality Abdomen, Pelvis Computed Tomogra phy 11/03/2025 1:19 AM EST Addenda Addendum by Lori Noble MD on 11/03/2025 11:15 AM EST ADDENDUM #1 CRITICAL RESULT: Hypoenhancing areas in the liver transplant concerning for infarcts, post left renal vein ligation with thrombus in the left renal vein and splenorenal shunt, and a tiny focus of free air were discussed with Keith Grimm CNP on 11/03/2025 11:08 AM EST by telephone. They confirmed that they understood the findings communicated to them. #[id number]# Report Verified by: Lori Noble MD at 11/03/2025 11:13 AM EST ORIGINAL REPORT EXAM: CT ABDOMEN AND PELVIS WITH IV CONTRAST INDICATION: Other diseases of liver, Liver Transplant Recipient with Edema and Pain TECHNIQUE: CT of the abdomen was performed after the administration of intravenous contrast in the late arterial, portal venous, and delayed phases. CT of the pelvis was also performed in the portal venous phase. Axial images were obtained with coronal and sagittal reconstructions. CONTRAST: 135 mL of IOHEXOL 350 MG IODINE/ML INTRAVENOUS SOLUTION administered intravenously FIELD OF VIEW: 38 cm COMPARISON: Abdominal ultrasound 10/22/2025; outside hospital CT abdomen and pelvis 03/14/2025 FINDINGS: Lower Chest: Mild bibasilar atelectasis. Scattered pulmonary cysts. No focal consolidation or pleural effusion. Cardiomegaly. Liver: Status post orthotopic liver transplant. Periportal edema. There are multiple linear and wedge-shaped areas of hypoattenuation predominantly involving hepatic segments 7, 8 and 2. No focally suspicious hepatic lesion. Biliary tree: Gallbladder surgically absent. No dilatation of intra or extrahepatic biliary ducts. Spleen: Spleen is enlarged measuring 14.5 cm in maximal axial dimension. Pancreas: Pancreas enhances homogenously. No pancreatic ductal dilation. Adrenal glands: No focal nodule seen. Kidneys/Ureters/Bladder: Delayed left nephrogram with cortical atrophy and large obstructing calculus in the renal pelvis (series 305, image 153). The large obstructing calculus in the left renal pelvis is similar when compared to the outside CT. Additional nonobstructive punctate calculi are also seen in the left kidney. Left-sided urothelial thickening and stranding adjacent to the calyces, renal pelvis, and proximal left ureter are similar to the previous outside CT.Normal size and enhancement of the right kidney. Bladder diverticula. Gastrointestinal tract: Small sliding-type hiatal hernia. The gastrointestinal tract is normal in caliber and wall thickness. The appendix is normal. Lymphatics: Prominent periportal lymph node measuring 1 cm in short axis. Vasculature: Post left renal vein ligation with thrombus seen in the left renal vein (series 305, image 142) with partial thrombosis seen in spontaneous left spinal renal shunt (series 305, image 120). Thrombus is also seen in the collateral vessels in the left upper quadrant (for example, series 603, image 68). The transplant arterial anastomosis appears patent. The portal and hepatic veins are patent. Peritoneum/Retroperitoneum: Loculated fluid in the medial aspect of the hepatic transplant (series 308, image 83) measures 6.1 x 3.4 cm. Small amount of fluid along the right anterior pararenal space. Small volume ascites along the right colic gutter and pelvis. Tiny focus of free air (series 305, image 39) may be postsurgical in etiology. Genital Organs: Prostate is not enlarged. Abdominal wall/Soft tissues: Mild postsurgical scarring/edema along the ventral abdominal wall. Osseous structures: No acute osseous abnormalities or suspicious osseous lesions. IMPRESSION: 1. Status post orthotopic liver transplant with multiple linear wedge-shaped areas of hypoenhancement concerning for multiple acute infarcts involving hepatic segments 8, 7 and 2. The transplant vasculature appears patent. 2. Postoperative changes of left renal vein ligation with thrombus seen in the left renal vein and extending into the splenorenal shunt with delayed left nephrogram. 3. Thrombus is also seen in the collateral vessels in the left upper quadrant. 4. Large obstructing calculus in the renal pelvis on the left with urothelial thickening and stranding adjacent to the calyces, renal pelvis, and proximal left ureter are similar to the previous outside CT. 5. Loculated fluid in the medial aspect of the hepatic transplant. Small volume ascites. Tiny focus of free air may be postsurgical in etiology. Critical Value: Acute hepatic infarcts. Post left renal vein ligation with thrombus in the left renal vein and splenorenal shunt. This finding was discussed with Jolene Bell RN by Dory Singletary DO on 11/03/25 at 10:08 AM. They confirmed that they understood the findings communicated to them. #[id number]# Approved by Dory Singletary DO on 11/03/2025 10:15 AM EST I have personally reviewed the images and I agree with this report. Report Verified by: Lori Noble MD at 11/03/2025 10:58 AM EST Impressions 11/03/2025 10:58 AM EST IMPRESSION: 1. Status post orthotopic liver transplant with multiple linear wedge-shaped areas of hypoenhancement concerning for multiple acute infarcts involving hepatic segments 8, 7 and 2. The transplant vasculature appears patent. 2. Postoperative changes of left renal vein ligation with thrombus seen in the left renal vein and extending into the splenorenal shunt with delayed left nephrogram. 3. Thrombus is also seen in the collateral vessels in the left upper quadrant. 4. Large obstructing calculus in the renal pelvis on the left with urothelial thickening and stranding adjacent to the calyces, renal pelvis, and proximal left ureter are similar to the previous outside CT. 5. Loculated fluid in the medial aspect of the hepatic transplant. Small volume ascites. Tiny focus of free air may be postsurgical in etiology. Critical Value: Acute hepatic infarcts. Post left renal vein ligation with thrombus in the left renal vein and splenorenal shunt. This finding was discussed with Jolene Bell RN by Dory Singletary DO on 11/03/25 at 10:08 AM. They confirmed that they understood the findings communicated to them. #[id number]# Approved by Dory Singletary DO on 11/03/2025 10:15 AM EST I have personally reviewed the images and I agree with this report. Report Verified by: Lori Noble MD at 11/03/2025 10:58 AM EST Narrative 11/03/2025 10:58 AM EST EXAM: CT ABDOMEN AND PELVIS WITH IV CONTRAST INDICATION: Other diseases of liver, Liver Transplant Recipient with Edema and Pain TECHNIQUE: CT of the abdomen was performed after the administration of intravenous contrast in the late arterial, portal venous, and delayed phases. CT of the pelvis was also performed in the portal venous phase. Axial images were obtained with coronal and sagittal reconstructions. CONTRAST: 135 mL of IOHEXOL 350 MG IODINE/ML INTRAVENOUS SOLUTION administered intravenously FIELD OF VIEW: 38 cm COMPARISON: Abdominal ultrasound 10/22/2025; outside hospital CT abdomen and pelvis 03/14/2025 FINDINGS: Lower Chest: Mild bibasilar atelectasis. Scattered pulmonary cysts. No focal consolidation or pleural effusion. Cardiomegaly. Liver: Status post orthotopic liver transplant. Periportal edema. There are multiple linear and wedge-shaped areas of hypoattenuation predominantly involving hepatic segments 7, 8 and 2. No focally suspicious hepatic lesion. Biliary tree: Gallbladder surgically absent. No dilatation of intra or extrahepatic biliary ducts. Spleen: Spleen is enlarged measuring 14.5 cm in maximal axial dimension. Pancreas: Pancreas enhances homogenously. No pancreatic ductal dilation. Adrenal glands: No focal nodule seen. Kidneys/Ureters/Bladder: Delayed left nephrogram with cortical atrophy and large obstructing calculus in the renal pelvis (series 305, image 153). The large obstructing calculus in the left renal pelvis is similar when compared to the outside CT. Additional nonobstructive punctate calculi are also seen in the left kidney. Left-sided urothelial thickening and stranding adjacent to the calyces, renal pelvis, and proximal left ureter are similar to the previous outside CT.Normal size and enhancement of the right kidney. Bladder diverticula. Gastrointestinal tract: Small sliding-type hiatal hernia. The gastrointestinal tract is normal in caliber and wall thickness. The appendix is normal. Lymphatics: Prominent periportal lymph node measuring 1 cm in short axis. Vasculature: Post left renal vein ligation with thrombus seen in the left renal vein (series 305, image 142) with partial thrombosis seen in spontaneous left spinal renal shunt (series 305, image 120). Thrombus is also seen in the collateral vessels in the left upper quadrant (for example, series 603, image 68). The transplant arterial anastomosis appears patent. The portal and hepatic veins are patent. Peritoneum/Retroperitoneum: Loculated fluid in the medial aspect of the hepatic transplant (series 308, image 83) measures 6.1 x 3.4 cm. Small amount of fluid along the right anterior pararenal space. Small volume ascites along the right colic gutter and pelvis. Tiny focus of free air (series 305, image 39) may be postsurgical in etiology. Genital Organs: Prostate is not enlarged. Abdominal wall/Soft tissues: Mild postsurgical scarring/edema along the ventral abdominal wall. Osseous structures: No acute osseous abnormalities or suspicious osseous lesions. Procedure Note Lori Noble MD - 11/03/2025 EXAM: CT ABDOMEN AND PELVIS WITH IV CONTRAST INDICATION: Other diseases of liver, Liver Transplant Recipient with Edemaand Pain TECHNIQUE: CT of the abdomen was performed after the administration ofintravenous contrast in the late arterial, portal venous, and delayedphases. CT of the pelvis was also performed in the portal venous phase.Axial images were obtained with coronal and sagittal reconstructions. CONTRAST: 135 mL of IOHEXOL 350 MG IODINE/ML INTRAVENOUS SOLUTIONadministered intravenously FIELD OF VIEW: 38 cm COMPARISON: Abdominal ultrasound 10/22/2025; outside hospital CT abdomenand pelvis 03/14/2025 FINDINGS: Lower Chest: Mild bibasilar atelectasis. Scattered pulmonary cysts. Nofocal consolidation or pleural effusion. Cardiomegaly. Liver: Status post orthotopic liver transplant. Periportal edema. Thereare multiple linear and wedge-shaped areas of hypoattenuationpredominantly involving hepatic segments 7, 8 and 2. No focally suspicioushepatic lesion. Biliary tree: Gallbladder surgically absent. No dilatation of intra orextrahepatic biliary ducts. Spleen: Spleen is enlarged measuring 14.5 cm in maximal axial dimension. Pancreas: Pancreas enhances homogenously. No pancreatic ductal dilation. Adrenal glands: No focal nodule seen. Kidneys/Ureters/Bladder: Delayed left nephrogram with cortical atrophy andlarge obstructing calculus in the renal pelvis (series 305, image 153).The large obstructing calculus in the left renal pelvis is similar whencompared to the outside CT. Additional nonobstructive punctate calculi arealso seen in the left kidney. Left-sided urothelial thickening andstranding adjacent to the calyces, renal pelvis, and proximal left ureterare similar to the previous outside CT.Normal size and enhancement of theright kidney. Bladder diverticula. Gastrointestinal tract: Small sliding-type hiatal hernia. Thegastrointestinal tract is normal in caliber and wall thickness. Theappendix is normal. Lymphatics: Prominent periportal lymph node measuring 1 cm in shortaxis. Vasculature: Post left renal vein ligation with thrombus seen in the leftrenal vein (series 305, image 142) with partial thrombosis seen inspontaneous left spinal renal shunt (series 305, image 120). Thrombus isalso seen in the collateral vessels in the left upper quadrant (forexample, series 603, image 68). The transplant arterial anastomosis appears patent. The portal and hepaticveins are patent. Peritoneum/Retroperitoneum: Loculated fluid in the medial aspect of thehepatic transplant (series 308, image 83) measures 6.1 x 3.4 cm. Smallamount of fluid along the right anterior pararenal space. Small volumeascites along the right colic gutter and pelvis. Tiny focus of free air(series 305, image 39) may be postsurgical in etiology. Genital Organs: Prostate is not enlarged. Abdominal wall/Soft tissues: Mild postsurgical scarring/edema along theventral abdominal wall. Osseous structures: No acute osseous abnormalities or suspicious osseouslesions. IMPRESSION: 1. Status post orthotopic liver transplant with multiple linearwedge-shaped areas of hypoenhancement concerning for multiple acuteinfarcts involving hepatic segments 8, 7 and 2. The transplant vasculatureappears patent. 2. Postoperative changes of left renal vein ligation with thrombus seenin the left renal vein and extending into the splenorenal shunt withdelayed left nephrogram. 3. Thrombus is also seen in the collateral vessels in the left upperquadrant. 4. Large obstructing calculus in the renal pelvis on the left withurothelial thickening and stranding adjacent to the calyces, renal pelvis,and proximal left ureter are similar to the previous outside CT. 5. Loculated fluid in the medial aspect of the hepatic transplant. Smallvolume ascites. Tiny focus of free air may be postsurgical in etiology. Critical Value: Acute hepatic infarcts. Post left renal vein ligation withthrombus in the left renal vein and splenorenal shunt. This finding wasdiscussed with Jolene Bell RN by Dory Singletary DO on 11/03/25 at10:08 AM. They confirmed that they understood the findings communicatedto them. #[id number]# Approved by Dory Singletary DO on 11/03/2025 10:15 AM EST I have personally reviewed the images and I agree with this report. Report Verified by: Lori Noble MD at 11/03/2025 10:58 AM EST Aspen Parr MD IMG CT ORDERABLES Edited Result - Final * (ABNORMAL) POC Glucose Monitoring Device (11/03/2025 12:26 AM EST) POC Glucose Monitoring Device 177(H) 70 - 100 mg/dL 11/03/2025 12:27 AM EST [facility] Blood 11/03/2025 12:2 6 AM EST 11/03/2025 12:27 AM EST Vani Winkler MD POINT OF CARE TEST ORDERABLE S Final Result [facility] [address] * Antibody Screen (11/02/2025 11:44 PM EST) Pathologist [facility] Antibody Screen Negative 11/03/2025 12:25 AM EST [facility] Blood 11/02/2025 11:4 4 PM EST 11/02/2025 11:49 PM EST Narrative [facility] - 11/03/2025 12:44 AM EST Testing performed by [facility] Transfusion Service Aspen Parr MD BLOOD BANK TEST ORDERABLES Final Result [facility] [address] [place] [address]. [address] * ABO/Rh (11/02/2025 11:44 PM EST) Pathologist [facility] ABO Grouping A 11/03/2025 12:47 AM EST [facility] Rh Type Positive 11/03/2025 12:47 AM EST [facility] Blood 11/02/2025 11:4 4 PM EST 11/02/2025 11:49 PM EST Aspen Parr MD BLOOD BANK TEST ORDERABLES Final Result [address] * Histoplasma/Blastomyces Ag, EIA, S (11/02/2025 9:13 PM EST) [facility] Histoplasma/Blasto myces Ag Result (Serum) Not Detected Not Detected 11/09/2025 12:42 PM EST [facility] Comment: No antigen from Histoplasma or Blastomyces detected. False negative results may occur depending on extent of disease, and/or site of infection. Repeat testing on a new specimen if clinically indicated. Histoplasma/Blasto myces Ag Value (Serum) Not Detected ng/mL 11/09/2025 12:42 PM EST [facility] Comment: ADDITIONAL INFORMATION This test was developed and its performance characteristics determined by [facility] in a manner consistent with CLIA requirements. This test has not been cleared or approved by the U.S. Food and Drug Administration. Test Performed by: [facility] [address] [place] [address] [employer] Business Analyst: Katherin Galindo Ph.D.; CLIA# [id number] Serum SERUM SPECIMEN / Unknown 11/02/2025 9:13 PM EST 11/09/2025 12:42 PM EST Comment:S Aspen Parr MD LAB BLOOD ORDERABLES Final Resul t [facility] [address] [place] [address]. [address] * Blood culture-Peripheral (Blood) (11/02/2025 9:13 PM EST) Culture Result No Growth After 5 Days [facility] Blood BLOOD SPECIMEN / Unknown 11/02/2025 9:13 PM EST 11/02/2025 9:33 PM EST Narrative [facility] - 11/07/2025 9:49 PM EST Please obtain two separate peripheral sticks Aspen Parr MD MICROBIOLOGY - GENERAL ORDERABLE S Final Result [facility] [address] [place] [address]. [address] * (ABNORMAL) Hepatic Function Panel (11/02/2025 9:08 PM EST) Total Bilirubin 7.2(H) 0.0 - 1.5 mg/dL 11/02/2025 10:01 PM EST [facility] Bilirubin, Direct 4.34(H) 0.00 - 0.40 mg/dL 11/02/2025 10:01 PM EST [facility] AST 37 13 - 39 U/L 11/02/2025 10:01 PM EST [facility] ALT 62(H) 7 - 52 U/L 11/02/2025 10:01 PM EST [facility] Alkaline Phosphatase 303(H) 36 - 125 U/L 11/02/2025 10:01 PM EST [facility] Total Protein 5.4(L) 6.4 - 8.9 g/dL 11/02/2025 10:01 PM EST [facility] Albumin 2.8(L) 3.5 - 5.7 g/dL 11/02/2025 10:01 PM EST [facility] Bilirubin, Indirect 2.86(H) 0.00 - 1.10 mg/dL 11/02/2025 10:01 PM EST [facility] Plasma 11/02/2025 9:08 PM EST 11/02/2025 9:30 PM EST Aspen Parr MD LAB BLOOD ORDERABLES Final Resul t [facility] [address] * (ABNORMAL) Magnesium (11/02/2025 9:08 PM EST) Magnesium 1.3(L) 1.5 - 2.5 mg/dL 11/02/2025 10:01 PM EST [facility] Plasma 11/02/2025 9:08 PM EST 11/02/2025 9:30 PM EST Aspen Parr MD LAB BLOOD ORDERABLES Final Resul t [facility] [address] [facility] * (ABNORMAL) Renal Function Panel w/EGFR (11/02/2025 9:08 PM EST) Sodium 132(L) 133 - 146 mmol/L 11/02/2025 10:01 PM EST [facility] Potassium 4.6 3.5 - 5.3 mmol/L 11/02/2025 10:01 PM EST [facility] Chloride 103 98 - 110 mmol/L 11/02/2025 10:01 PM EST [facility] CO2 22 21 - 33 mmol/L 11/02/2025 10:01 PM [facility] Comment:High lactate dehydro genase concentrations in patient samples may cause falsely increased bicarbonate results. If markedly elevated LDH is observed or suspected, please assess results in conjunction with patient`s clinical presentation. In cases of discrepant results, consider evaluating CO2 in with a blood gas order. Anion Gap 7 3 - 16 mmol/L 11/02/2025 10:01 PM [facility] BUN 29(H) 7 - 25 mg/dL 11/02/2025 10:01 PM [facility] Creatinine 1.17 0.60 - 1.30 mg/dL 11/02/2025 10:01 PM [facility] Glucose 289(H) 70 - 100 mg/dL 11/02/2025 10:01 PM [facility] Calcium 7.8(L) 8.6 - 10.3 mg/dL 11/02/2025 10:01 PM [facility] Phosphorus 3.4 2.1 - 4.7 mg/dL 11/02/2025 10:01 PM [facility] Albumin 2.8(L) 3.5 - 5.7 g/dL 11/02/2025 10:01 PM [facility] Osmolality, Calculated 290 278 - 305 mOsm/kg 11/02/2025 10:01 PM [facility] EGFR 70 11/02/2025 10:01 PM [facility] Comment:As of 2022, the [...] as >90mL/min/1.73m2. Reference: Sachin C, Kathy M, Rebceca DC, Josue ND, Dee Dee LOMELI, Nazia LA, et al. A Unifying Approach for GFR Estimation: Recommendations of the NKF-ASN Task Force on Reassessing the inclusion of Race in Diagnosing Kidney Disease. Am J Kidney Dis. 2020. Plasma 11/02/2025 9:08 PM EST 11/02/2025 9:30 PM EST us Aspen Parr MD LAB BLOOD ORDERABLES Final Resul t [facility] [address] [place] [address], [facility] * (ABNORMAL) CBC (11/02/2025 9:08 PM EST) WBC 12.2(H) 3.8 - 10.8 10E3/uL 11/02/2025 10:19 PM EST [facility] RBC 1.61(L) 4.20 - 5.80 10E6/uL 11/02/2025 10:19 PM EST [facility] Hemoglobin 5.7(LL) 13.2 - 17.1 g/dL 11/02/2025 10:19 PM EST [facility] Comment: Results verified by repeat analysis. Critical Result HGB:5.7 Called to and read back by: ERICA BENJAMIN RN at: 11/02/2025 22:18:41 by:DEJON Hematocrit 16.0(L) 38.5 - 50.0 % 11/02/2025 10:19 PM EST [facility] MCV 98.9 80.0 - 100.0 fL 11/02/2025 10:19 PM EST [facility] MCH 35.5(H) 27.0 - 33.0 pg 11/02/2025 10:19 PM EST [facility] MCHC 35.9 32.0 - 36.0 g/dL 11/02/2025 10:19 PM EST [facility] Comment:Specimen warmed. RDW 17.6(H) 11.0 - 15.0 % 11/02/2025 10:19 PM EST [facility] Platelets 266 140 - 400 10E3/uL 11/02/2025 10:19 PM EST [facility] MPV 7.9 7.5 - 11.5 fL 11/02/2025 10:19 PM EST [facility] Whole Blood 11/02/2025 9:08 PM EST 11/02/2025 9:30 PM EST Aspen Parr MD LAB BLOOD ORDERABLES Final Resul t [facility] [address] [place] [address], [facility] * Fungitell (11/02/2025 9:08 PM EST) Fungitell Value <31.25 pg/mL 4:19 PM EST [facility] Reference Value Comment 4:19 PM EST [facility] Comment:Negative: <60, Posit silverio: >/=60 Clinical Relevance Notes 2024 4:19 PM EST [facility] Comment: The Fungitell test is indicated for presumptive diagnosis of fungal infection and should be used in conjunction with other diagnostic procedures. The test detects glucan from the following pathogens: Leticia spp., Acremonium, Aspergillus spp., Coccidioides immitis, Fusarium spp., Histoplasma capsulatum, Trichosporon spp., Sporothrix schenckii, Saccharomyces cerevisiae, and Pneumocystis jiroveci. This test does not detect certain fungal species such as Cryptococcus, which produce very low levels of (1,3)-hobo-K-mkwxzh. This test will not detect the zygomycetes, such as Absidia, Blastomyces, Mucor, and Rhizopus, which are not known to produce (1,3)-xhom-L-razcgd. In addition, the yeast phase of Blastomyces dermatitidis produces little (1,3)-cegq-A-meuwul and may not be detected by the assay. Disclaimer: Notes 11/06/2025 4:19 PM EST [facility] Comment: This test has been cleared or approved for diagnostic use by the U.S. Food and Drug Administration. Performance characteristics were verified by [employer]. Electronically signed by: Comment 11/06/2025 4:19 PM EST [facility] Comment:Kesha Macias Fungitell Result Comment 11/06/20 4:19 PM EST [facility] Comment:Negative Interpretation Notes 11/06/2025 4:19 PM EST [facility] Comment: (1,3) Ebtd-O-Wfriln was NOT DETECTED in the sample. Reasons for negative results could include the patient being in the early stage of infection before detectable levels of (1,3) Bkci-X-Xevtyu are present. Clinical diagnosis should be made in the context of the patient's complete medical history. Serum 11/02/2025 9:08 PM EST 11/06/2025 5:07 PM EST Narrative [facility] - 11/06/2025 5:07 PM EST PERFORMED AT: [email or web address] [address] [place], [place] [id number] ASSOCIATE TEACHER: Serge Anderson, PhD PHONE: [phone] Aspen Parr MD LAB BLOOD ORDERABLES Final Resul t [facility] [address] [place] [address], [facility] * Jose-Mims Virus (EBV) PCR (11/02/2025 9:08 PM EST) EBV DNA, Quantitative PCR <35 IU/mL 11/05/2025 2:02 PM EST [facility] EBV DNA, Log10 See Note log 10 IU/mL 11/05/2025 2:02 PM EST [facility] Comment: Beginning March 09, 2023, [facility] has transitioned EBV viral load testing to a new assay that is performed on plasma rather than whole blood. Based on verification data, results are expected to be 0.8 log lower than the previous assay. As there was significant variation in this value, consider re-baselining any patients being followed longitudinally if clinically relevant. For more information about this change, contact the microbiology laboratory. Test methodology for EB VIRUS QUANTITATIVE BY PCR, BLOOD quantification is an FDA-approved nucleic acid amplification assay. The Lower Limit of Quantitation (LLOQ) is 35.0 IU/mL for EDTA plasma. The linear range of the assay is 35.0-100,000,000 IU/mL. The Limit of Detection (LoD) is 18.8 IU/mL. The reference range is Not Detected. EBV DNA has been detected, but not quantifiable. EBV DNA is below the LLoQ for the assay. Log IU/mL cannot be calculated. Plasma 11/02/2025 9:08 PM EST 11/02/2025 9:36 PM EST Aspen Parr MD LAB BLOOD ORDERABLES Final Resul t [facility] [address] [facility] * Cryptococcus Ag (11/02/2025 9:08 PM EST) Crypto Ag, Ser Negative Negative 11/02/2025 10:33 PM EST [facility] Crypto Ag Titer, Ser Not Applicable 11/02/2025 10:33 PM EST [facility] Serum SERUM SPECIMEN / Unknown 11/02/2025 9:08 PM EST 11/02/2025 9:56 PM EST Comment:S Aspen Parr MD LAB BLOOD ORDERABLES Final Resul t Performing Organization Address [facility] Co de Phone Number [facility] [address] [facility] * Cytomegalovirus (CMV) PCR (11/02/2025 9:08 PM EST) Pathologist [facility] CMV DNA Qnt Not Detected IU/mL 11/05/2025 11:37 AM EST [facility] Comment:Test methodology for CMV DNA quantification is an FDA-approved nucleic acid amplification assay. The Lower Limit of Quantitation (LLOQ) and Limit of Detection (LoD) for EDTA plasma is 34.5 IU/mL. The linear range of the assay is 34.5- 10,000,000 IU/mL. The reference range is Not Detected. Log10 CMV Qn DNA PI See Note log 10 IU/mL 11/05/2025 11:37 AM EST [facility] Comment:CMV DNA not detected Plasma 11/02/2025 9:08 PM EST 11/02/2025 9:36 PM EST Aspen Parr MD LAB BLOOD ORDERABLES Final Resul t Performing Organization Address [facility] Co de Phone Number [facility] [address] [facility] * Aspergillus Ag (11/02/2025 9:08 PM EST) Aspergillus Ag. 0.03 0.00 - 0.49 Index 11/07/2025 5:53 PM EST [facility] Serum SERUM SPECIMEN / Unknown 11/02/2025 9:08 PM EST 11/09/2025 12:07 PM EST Comment:S Aspen Parr MD BODY FLUIDS AND STOOLS ORDERABLE S Final Result Performing Organization Address City/[facility]/ZIP Co de Phone Number [facility] [address] * Adenovirus PCR (11/02/2025 9:08 PM EST) Adenovirus, Quantitative PCR 0 0 - 0 copies/mL 11/07/2025 2:36 PM EST [facility] Comment: Testing performed by [facility], [address] [place] [address]. This test(s) was developed and its performance characteristics determined and validated by the Department of Pathology and Laboratory Medicine at [facility]. It has not been cleared or approved by the U.S. Food and Drug Administration. The FDA has determined that such clearance is not necessary. This laboratory is certified under the Clinical Laboratory Improvement Amendments of 1988 (CLIA-88) as qualified to perform high-complexity laboratory testing. In quantitative analysis of Adenovirus, clinical correlation in specimens other than whole blood is unknown. Whole Blood 11/02/2025 9:08 PM EST 11/07/2025 2:36 PM EST Aspen Parr MD LAB BLOOD ORDERABLES Final Resul t [facility] [address] [facility]. [address] * Blood culture-Peripheral (Blood) (11/02/2025 9:08 PM EST) Culture Result No Growth After 5 Days [facility] Blood BLOOD SPECIMEN / Unknown 11/02/2025 9:08 PM EST 11/02/2025 9:33 PM EST Narrative [facility] - 11/07/2025 9:48 PM EST Please obtain two separate peripheral sticks us Aspen Parr MD MICROBIOLOGY - GENERAL ORDERABLE S Final Result [facility] [address] [facility] * (ABNORMAL) POC Glucose Monitoring Device (11/02/2025 8:51 PM EST) POC Glucose Monitoring Device 334(H) 70 - 100 mg/dL 11/02/2025 8:51 PM EST [facility] Blood 11/02/2025 8:51 PM EST 11/02/2025 8:51 PM EST Vani Winkler MD POINT OF CARE TEST ORDERABLE S Final Result Performing Organization Address [facility] Co de Phone Number [facility] [address] [facility] documented in this encounter Visit Diagnoses Diagnosis Immunosuppression (CMS-HCC)- Primary Hepatic encephalopathy (CMS-HCC) Hepatic encephalopathy Pre-transplant evaluation for chronic liver disease Encounter for pre-transplant evaluation for liver transplant Hyperbilirubinemia Disorders of bilirubin excretion Anemia, unspecified type [D64.9] Iron overload [E83.19] Disorders of iron metabolism Positive direct antiglobulin test (FRANSICO) [R76.89] Liver transplanted (CMS-HCC) Liver replaced by transplant documented in this encounter Administered Medications Inactive Administered Medications - up to 3 most recent administrations Medication Order MAR Action Action Date Dose Rate Site acetaminophen (TYLENOL) tablet 975 mg 975 mg, Oral, Every 8 hours, First dose on Wed11/02/25 at 2030, Maximum dose of acetaminophen is 4000 mg (4 grams) from all sources in 24 hours. Given 11/08/2025 12:07 PM EST 975 mg Given 11/08/2025 2:19 AM EST 975 mg Given 11/07/2025 6:11 PM EST 975 mg acetaminophen (TYLENOL) tablet 975 mg 975 mg, Oral, Once, On 11/05/25 at 0900, For 1 dose Given 11/05/2025 8:52 AM EST 975 mg acyclovir (ZOVIRAX) tablet 800 mg 800 mg, Oral, 2 times daily, First dose on Wed11/02/25 at 2100 Given 11/08/2025 8:07 AM EST 800 mg Given 11/07/2025 9:20 PM EST 800 mg Given 11/07/2025 9:06 AM EST 800 mg atovaquone (MEPRON) suspension 1,500 mg 1,500 mg, Oral, Daily, First dose on Wed11/06/25 at 0900, ADMINISTER WITH MEALS. Given 11/08/2025 8:10 AM EST 1,5 00 mg Given 11/07/2025 9:07 AM EST 1,500 mg Given 11/06/2025 8:08 AM EST 1,500 mg calcium carbonate (TUMS) chewable tablet 500 mg 500 mg, Oral, 3 times daily PRN, Heartburn, Indigestion, Starting on Wed11/05/25 at 0012 Given 11/05/2025 12:22 AM EST 500 mg dextrose 10%-water (D10W) IV soln 12.5 g, Intravenous, Every 15 min PRN, Low blood sugar, for glucose < 70 and alert but can not be corrected, orally or via feeding tube, Starting on Wed11/02/25 at 2024, Recheck blood sugar in 15 minutes and repeat treatment if glucose still < 70. For Smart Pump: Set volume to be infused; 125 ml for 12.5 grams or 250 mL for 25 grams. dextrose 10%-water (D10W) IV soln 25 g, Intravenous, Every 15 min PRN, Low blood sugar, for glucose < 70 and not alert, Starting on Wed11/02/25 at 2024, Recheck glucose in 15 minutes and repeat treatment if glucose still < 70. For Smart Pump: Set volume to be infused; 125 ml for 12.5 grams or 250 mL for 25 grams. electrolyte-R (pH 7.4) (NORMOSOL-R pH 7.4) IV solution 75 mL/hr, Intravenous, Continuous, Starting on 11/03/25 at 1130, For 2 days 4 hours New Bag 11/05/2025 12:21 AM EST 75 mL/hr 75 mL/hr Restarted 11/04/2025 2:16 AM EST 75 mL/hr 75 mL/hr New Bag 11/03/2025 11:42 AM EST 75 mL/hr 75 mL/hr electrolyte-R (pH 7.4) (NORMOSOL-R pH 7.4) IV solution 75 mL/hr, Intravenous, Continuous, Starting on Wed11/05/25 at 1500 New Bag 11/05/2025 5:54 PM EST 75 mL/hr 75 mL/hr glucose chewable tablet 12 g 12 g, Oral, Every 15 min PRN, Low blood sugar, see admin instructions, Starting on Wed11/02/25 at 2024, TAKING PO: Patient has blood glucose between 50-70 mg/dL. o Give 15 grams of fast-acting carbohydrate (4 oz. fruit juice or 4 oz. non-diet soda or 3 glucose tablets). o Recheck blood sugar in 15 minutes and repeat if blood sugar is still between 50-70 mg/dL. Repeat as needed. Patient has blood glucose less than 50 mg/dL o Give 30 grams fast-acting carbohydrate (8 oz. fruit juice or 8 oz. of non-diet soda or 6 glucose tablets) on first attempt. o Recheck blood sugar in 15 minutes and repeat if blood sugar is still less than 50mg/dL. o If further attempts necessary, revert to 15 grams of carbohydrate. Repeat as needed. FEEDING TUBE: Patient has blood glucose between 50-70 mg/dL. o Give 15 grams of fast-acting carbohydrate (4 oz. fruit juice or 4 oz.non-diet soda). o Recheck blood sugar in 15 minutes and repeat if blood sugar is still between 50-70 mg/dL. Repeat as needed. Patient has blood glucose less than 50 mg/dL o Give 30 grams fast-acting carbohydrate (8 oz. fruit juice or 8 oz. of non-diet soda). o Recheck blood sugar in 15 minutes and repeat if blood sugar is still less than 50mg/dL. o If further attempts necessary, revert to 15 grams of carbohydrate. Repeat as needed. Labeled tablet strength may vary by business office assistant (may be expressed as grams of carbohydrates) per tablet. Each tablet = 4 grams of glucose. Do not give chewable tablets via feeding tube heparin (porcine) injection 5,000 Units 5,000 Units, Subcutaneous, Every 8 hours scheduled (3 times per day), First dose on Wed11/02/25 at 2100 Given 11/05/2025 4:14 AM EST 5,000 Units Right Arm Given 11/04/2025 7:53 PM EST 5,000 Units A bdominal Tissue Given 11/04/2025 1:03 PM EST 5,000 Units A bdominal Tissue heparin (porcine) injection 5,000 Units 5,000 Units, Subcutaneous, Every 8 hours scheduled (3 times per day), First dose (after last modification) on Wed11/05/25 at 2100, On hold since Wed11/05/2025 at 1804 until manually unheld indomethacin (INDOCIN) 50 mg suppository 50 mg 50 mg, Rectal, Once, On 11/04/25 at 0930, For 1 dose, Intra-procedure(GI) Given 11/04/2025 11:18 AM EST 50 mg insulin lispro (humaLOG/ADMELOG) injection 0-10 Units 0-10 Units, Subcutaneous, At Bedtime (2099), First dose on Wed11/05/25 at 2100, HIGH ALERT MEDICATION Onset of action is rapid. Give dose 5-10 minutes before meal. Have meal at bedside. Given 11/07/2025 9:22 PM EST 5 Units A bdominal Tissue Given 11/06/2025 10:29 PM EST 5 Units R ight Arm insulin lispro (humaLOG/ADMELOG) injection 0-12 Units 0-12 Units, Subcutaneous, 3 times daily before meals, First dose on Wed11/05/25 at 1800, HIGH ALERT MEDICATION Given 11/08/2025 1:10 PM EST 10 Units Right Arm Given 11/07/2025 6:11 PM EST 4 Units Ri ght Arm Given 11/07/2025 2:19 PM EST 7 Units Ri ght Arm insulin lispro (humaLOG/ADMELOG) injection 0-7 Units 0-7 Units, Subcutaneous, At Bedtime (2099), First dose on Wed11/02/25 at 2100, HIGH ALERT MEDICATION Onset of action is rapid. Give dose 5-10 minutes before meal. Have meal at bedside. Given 11/02/2025 9:04 PM EST 5 Units Left Arm insulin lispro (humaLOG/ADMELOG) injection 5 Units 5 Units, Subcutaneous, 3 times daily before meals, First dose on Wed11/05/25 at 1800, HIGH ALERT MEDICATION Given 11/08/2025 1:10 PM EST 5 Units Right Arm Given 11/08/2025 8:08 AM EST 5 Units Ri ght Arm Given 11/07/2025 6:12 PM EST 5 Units Ri ght Arm insulin NPH (HumuLIN N) injection 10 Units 10 Units, Subcutaneous, 2 times daily, First dose on Wed11/05/25 at 2100, Do not hold medication unless instructed by provider. HIGH ALERT MEDICATION Given 11/06/2025 8:10 AM EST 10 Units Right Arm Given 11/05/2025 9:58 PM EST 10 Units Ri ght Arm insulin NPH (HumuLIN N) injection 15 Units 15 Units, Subcutaneous, 2 times daily, First dose (after last modification) on Wed11/06/25 at 2100, Do not hold medication unless instructed by provider. HIGH ALERT MEDICATION Given 11/08/2025 8:08 AM EST 15 Units Right Arm Given 11/07/2025 9:22 PM EST 15 Units Ab dominal Tissue Given 11/07/2025 9:05 AM EST 15 Units Ri ght Arm insulin regular (HumuLIN R/NovoLIN R) injection Soln 0-12 Units 0-12 Units, Subcutaneous, Every 6 hours scheduled, First dose on Wed11/03/25 at 0000, HIGH ALERT MEDICATION Given 11/05/2025 6:45 AM EST 2 Units Right Arm Given 11/05/2025 12:22 AM EST 4 Units R ight Arm Given 11/04/2025 6:50 PM EST 7 Units Ab dominal Tissue insulin regular (HumuLIN R/NovoLIN R) injection Soln 0-12 Units 0-12 Units, Subcutaneous, Every 6 hours scheduled, First dose on Wed11/05/25 at 1200, HIGH ALERT MEDICATION Given 11/05/2025 2:51 PM EST 4 Units Abdominal Tissue magnesium sulfate in sterile water 100 mL IVPB 4 g 4 g, Intravenous, at 25 mL/hr, Once, On Wed11/02/25 at 2300, For 1 dose New Bag 11/02/2025 11:42 PM EST 4 g 25 mL/hr magnesium sulfate in sterile water 100 mL IVPB 4 g 4 g, Intravenous, at 25 mL/hr, Once, On Wed11/08/25 at 0800, For 1 dose New Bag 11/08/2025 11:58 AM EST 4 g 25 mL/hr methocarbamoL (ROBAXIN) tablet 500 mg 500 mg, Oral, 2 times daily, First dose on Wed11/02/25 at 2100 Given 11/08/2025 8:07 AM EST 500 mg Given 11/07/2025 9:21 PM EST 500 mg Given 11/07/2025 9:06 AM EST 500 mg methylPREDNISolone sod suc(PF) (SOLU-medrol) SolR 125 mg 125 mg, Intravenous, Every 24 hours, First dose (after last modification) on Wed11/07/25 at 1000, For 1 dose, MIX THOROUGHLY PRIOR TO ADMINISTRATION. Given 11/07/2025 12:15 PM EST 125 mg methylPREDNISolone sodium succinate (SOLU-medrol) 250 mg in sodium chloride 0.9 % 100 mL IVPB 250 mg, Intravenous, at 200 mL/hr, Every 24 hours, First dose on Wed11/06/25 at 1000, For 2 doses, Administer over 30 Minutes New Bag 11/06/2025 11:59 AM EST 250 mg 200 mL/hr methylPREDNISolone sodium succinate (SOLU-medrol) 500 mg in sodium chloride 0.9 % 100 mL IVPB 500 mg, Intravenous, at 200 mL/hr, Once, On Wed11/05/25 at 1700, For 1 dose, Administer over 30 Minutes New Bag 11/05/2025 6:59 PM EST 500 mg 200 mL/hr mycophenolate (CELLCEPT) capsule 500 mg 500 mg, Oral, 2 times daily, First dose on Wed11/02/25 at 2100, LEVEL 2 HAZARDOUS MEDICATION Given 11/08/2025 8:07 AM EST 500 mg Given 11/07/2025 9:20 PM EST 500 mg Given 11/07/2025 9:06 AM EST 500 mg OMNIPAQUE (iohexol) 350 mg iodine/mL 135 mL 135 mL, Intravenous, IMG once as needed, contrast, Starting on 11/03/25 at 0149, For 1 dose Given 11/03/2025 1:24 AM EST 135 mLs pantoprazole (PROTONIX) EC tablet 40 mg 40 mg, Oral, Every morning before breakfast, First dose on 11/03/25 at 0730, Do Not Crush Given by Other 11/05/2025 8:30 AM EST 40 mg Given 11/03/2025 5:48 AM EST 40 mg pantoprazole (PROTONIX) injection 40 mg 40 mg, Intravenous, Two times a day, First dose on 11/05/25 at 2030, Dilute with 10 mL of 0.9% NaCl. Dilute each 40 mg vial with 10 mL of Normal Saline Given 11/08/2025 6:27 AM EST 40 mg Given 11/07/2025 6:11 PM EST 40 mg Given 11/07/2025 5:58 AM EST 40 mg piperacillin-tazobactam (ZOSYN) 3.375 g in sodium chloride 0.9 % 100 mL [id number] IVPB 3.375 g, Intravenous, at 25 mL/hr, Every 8 hours, First dose on 11/03/25 at 1900, For 16 doses, Use [id number] Adapter - Mix Thoroughly Before Administration New Bag 11/08/2025 3:41 PM EST 3.375 g 25 mL/hr New Bag 11/08/2025 6:30 AM EST 3.375 g 25 mL/hr New Bag 11/07/2025 11:08 PM EST 3.375 g 25 mL/hr piperacillin-tazobactam (ZOSYN) 4.5 g in sodium chloride 0.9 % 100 mL [id number] 4.5 g, Intravenous, at 200 mL/hr, Once, On 11/03/25 at 1100, For 1 dose, Use [id number] Adapter - Mix Thoroughly Before Administration New Bag 11/03/2025 11:44 AM EST 4.5 g 200 mL/hr predniSONE (DELTASONE) tablet 20 mg 20 mg, Oral, Daily, First dose on 11/03/25 at 0900 Given by Other 11/05/2025 8:30 AM EST 20 mg Given 11/04/2025 1:02 PM EST 20 mg Given 11/03/2025 8:44 AM EST 20 mg predniSONE (DELTASONE) tablet 60 mg 60 mg, Oral, Daily, First dose on Maris 11/08/25 at 0900 Given 11/08/2025 8:07 AM EST 60 mg sodium chloride 0.9 % IV infusion 20 mL/hr, Intravenous, Continuous, Starting on 11/03/25 at 2100, For 12 hours, Normal Saline 0.9% run at KVO only during administration of blood products. New Bag 11/03/2025 11:19 PM EST 20 mL/ hr 20 mL/hr sodium chloride 0.9 % IV infusion 50 mL/hr, Intravenous, Continuous, Starting on Wed11/05/25 at 1100, Pre-procedure(GI) New Bag 11/05/2025 10:47 AM EST 50 mL/hr 50 mL/hr sodium chloride 0.9 % IV infusion 20 mL/hr, Intravenous, Continuous, Starting on Wed11/05/25 at 1000, For 12 hours, Normal Saline 0.9% run at KVO only during administration of blood products. New Bag 11/05/2025 4:31 PM EST 20 mL/h r 20 mL/hr sulfamethoxazole-trimethoprim (BACTRIM) 400-80 mg per tablet 1 tablet 1 tablet, Oral, Daily, First dose on Wed11/03/25 at 0900, On hold since Wed11/05/2025 at 0656 until manually unheld Given 11/04/2025 1:02 PM EST 1 tablet Given 11/03/2025 8:44 AM EST 1 tablet tacrolimus (PROGRAF) capsule 5 mg 5 mg, Oral, 2 times daily, First dose on Wed11/02/25 at 2100, LEVEL 2 HAZARDOUS MEDICATION Given by Other 11/05/2025 8:30 AM EST 5 mg Given 11/04/2025 7:52 PM EST 5 mg Given 11/03/2025 8:29 PM EST 5 mg tacrolimus (PROGRAF) capsule 5 mg 5 mg, Oral, Two times a day, First dose (after last modification) on Wed11/06/25 at 1900, LEVEL 2 HAZARDOUS MEDICATION Given 11/07/2025 6:58 AM EST 5 mg Given 11/06/2025 6:52 PM EST 5 mg tacrolimus (PROGRAF) capsule 6 mg 6 mg, Oral, Two times a day, First dose (after last modification) on Wed11/05/25 at 1900, LEVEL 2 HAZARDOUS MEDICATION Given 11/06/2025 6:16 AM EST 6 mg Given 11/05/2025 6:53 PM EST 6 mg tacrolimus (PROGRAF) capsule 6 mg 6 mg, Oral, Two times a day, First dose (after last modification) on Wed11/07/25 at 1900, LEVEL 2 HAZARDOUS MEDICATION Given 11/08/2025 6:31 AM EST 6 mg Given 11/07/2025 6:11 PM EST 6 mg traMADol (ULTRAM) half tablet 25 mg 25 mg, Oral, Every 6 hours PRN, moderate pain (NRS 4-6) or if patient is non-communicative (CPOT 3-5), Starting on Wed11/05/25 at 1431 Given 11/08/2025 5:09 PM EST 25 mg traMADoL (ULTRAM) tablet 50 mg 50 mg, Oral, Every 6 hours PRN, severe pain (NRS 7-10) or if patient is non-communicative (CPOT 6-8), Starting on Wed11/05/25 at 1431 Given 11/07/2025 9:21 PM EST 50 mg Given 11/06/2025 9:04 PM EST 50 mg Given 11/05/2025 10:00 PM EST 50 mg B ack documented in this encounter Active and Recently Administered Medications Times are shown in EST. Scheduled Medication Order 11/06/2025 11/07/2025 11/08/2025 acetaminophen (TYLENOL) tablet 975 mg 975 mg, Oral, Every 8 hours, First dose on Wed11/02/25 at 2030, Maximum dose of acetaminophen is 4000 mg (4 grams) from all sources in 24 hours. 0103 (Given - Provider: Erica Benjamin RN)0809 (Given - Provider: Bj Sy RN)1632 (Given - Provider: Bj Sy RN) 0039 (Hold - Provider: Anum Morales RN - Reason: Patient/family refused)0202 (Given - Provider: Anum Morales RN)0905 (Given - Provider: Veronica Winter RN)1811 (Given - Provider: Veronica Winter RN) 0219 (Given - Provider: Jonathan Bazzi RN)1207 (Given - Provider: Veronica Winter RN) acyclovir (ZOVIRAX) tablet 800 mg 800 mg, Oral, 2 times daily, First dose on Wed11/02/25 at 2100 0809 (Given - Provider: Bj Sy RN)2104 (Given - Provider: Anum Morales RN) 0906 (Given - Provider: Veronica Winter RN)2120 (Given - Provider: Jonathan Bazzi RN) 0807 (Given - Provider: Veronica Winter RN) atovaquone (MEPRON) suspension 1,500 mg 1,500 mg, Oral, Daily, First dose on Wed11/06/25 at 0900, ADMINISTER WITH MEALS. 0808 (Given - Provider: Bj Sy RN) 0907 (Given - Provider: Veronica Winter RN) 0810 (Given - Provider: Veronica Winter RN) heparin (porcine) injection 5,000 Units 5,000 Units, Subcutaneous, Every 8 hours scheduled (3 times per day), First dose (after last modification) on Wed11/05/25 at 2100, On hold since Wed11/05/2025 at 1804 until manually unheld 0500 (Not Given - Provider: Erica Benjamin RN - Reason: Other - Comment: Held by provider)1300 (Not Given - Provider: Bj Sy RN - Reason: Other - Comment: held by MD)2100 (Automatically Held - Provider: Huey He MD) 0500 (Automatically Held - Provider: Huey eH MD)1300 (Automatically Held - Provider: Huey He MD)2100 (Automatically Held - Provider: Huey He MD) 0500 (Automatically Held - Provider: Huey He MD)1300 (Automatically Held - Provider: Huey He MD)2143 (Unheld by provider - Provider: Automatic Discharge Provider) insulin lispro (humaLOG/ADMELOG) injection 0-10 Units(Linked Group 1) 0-10 Units, Subcutaneous, At Bedtime (2100), First dose on Wed11/05/25 at 2100, HIGH ALERT MEDICATION Onset of action is rapid. Give dose 5-10 minutes before meal. Have meal at bedside. 222 (Given - Provider: Anum Morales RN) 2121 (Given - Provider: Jonathan Bazzi RN) insulin lispro (humaLOG/ADMELOG) injection 0-12 Units 0-12 Units, Subcutaneous, 3 times daily before meals, First dose on Wed11/05/25 at 1800, HIGH ALERT MEDICATION 0811 (Given - Provider: Bj Sy RN)1250 (Given - Provider: Bj Sy RN)1852 (Given - Provider: Bj Sy RN) 0907 (Given - Provider: Veronica Winter RN)1419 (Given - Provider: Veronica Winter RN)1811 (Given - Provider: Veronica Winter RN) 0811 (Not Given - Provider: Veronica Winter RN - Reason: Order parameters not met)1310 (Given - Provider: Veronica Winter RN) insulin lispro (humaLOG/ADMELOG) injection 5 Units 5 Units, Subcutaneous, 3 times daily before meals, First dose on Wed11/05/25 at 1800, HIGH ALERT MEDICATION 0810 (Given - Provider: Bj Sy RN)1250 (Given - Provider: Bj Sy RN)1852 (Given - Provider: Bj Sy RN) 0906 (Given - Provider: Veronica Winter RN)1419 (Given - Provider: Veronica Winter RN)1812 (Given - Provider: Veronica Winter RN) 0808 (Given - Provider: Veronica Winter RN)1310 (Given - Provider: Veronica Winter RN) insulin NPH (HumuLIN N) injection 10 Units (CANCELED) 10 Units, Subcutaneous, 2 times daily, First dose on Wed11/05/25 at 2100, Do not hold medication unless instructed by provider. HIGH ALERT MEDICATION 0810 (Given - Provider: Bj Sy RN) insulin NPH (HumuLIN N) injection 15 Units 15 Units, Subcutaneous, 2 times daily, First dose (after last modification) on Wed11/06/25 at 2100, Do not hold medication unless instructed by provider. HIGH ALERT MEDICATION 2106 (Given - Provider: Anum Morales RN) 0905 (Given - Provider: Veronica Winter RN)2122 (Given - Provider: Jonathan Bazzi RN) 0808 (Given - Provider: Veronica Winter RN) magnesium sulfate in sterile water 100 mL IVPB 4 g (COMPLETED) 4 g, Intravenous, at 25 mL/hr, Once, On Wed11/08/25 at 0800, For 1 dose 1158 (New Bag - Provider: Veronica Winter RN) methocarbamoL (ROBAXIN) tablet 500 mg 500 mg, Oral, 2 times daily, First dose on Wed11/02/25 at 2100 0809 (Given - Provider: Bj Sy RN)2103 (Given - Provider: Anum Morales RN) 905 (Given - Provider: Veronica Winter RN)2120 (Given - Provider: Jonathan Bazzi RN) 806 (Given - Provider: Veronica Winter RN) methylPREDNISolone sod suc(PF) (SOLU-medrol) SolR 125 mg (COMPLETED)(Linked Group 2) 125 mg, Intravenous, Every 24 hours, First dose (after last modification) on Wed11/07/25 at 1000, For 1 dose, MIX THOROUGHLY PRIOR TO ADMINISTRATION. 1215 (Given - Provider: Veronica Winter RN) methylPREDNISolone sodium succinate (SOLU-medrol) 250 mg in sodium chloride 0.9 % 100 mL IVPB (CANCELED) 250 mg, Intravenous, at 200 mL/hr, Every 24 hours, First dose on Wed11/06/25 at 1000, For 2 doses, Administer over 30 Minutes 1159 (New Bag - Provider: Bj Sy RN) mycophenolate (CELLCEPT) capsule 500 mg 500 mg, Oral, 2 times daily, First dose on Wed11/02/25 at 2100, LEVEL 2 HAZARDOUS MEDICATION 0809 (Given - Provider: Bj Sy RN)2103 (Given - Provider: Anum Morales RN) 905 (Given - Provider: Veronica Winter RN)2119 (Given - Provider: Jonathan Bazzi RN) 08 (Given - Provider: Veronica Winter RN) NIFEdipine (PROCARDIA-XL) 24 hr tablet 30 mg 30 mg, Oral, Daily, First dose on Wed11/03/25 at 0900, DO NOT CRUSH, On hold since Wed11/03/2025 at 0727 until manually unheld 0900 (Not Given - Provider: Bj Sy RN - Reason: Other - Comment: HELD BY ) 09 (Automatically Held - Provider: Keith Grimm CNP) 899 (Automatically Held - Provider: Keith Grimm CNP)2142 (Unheld by provider - Provider: Automatic Discharge Provider) pantoprazole (PROTONIX) injection 40 mg 40 mg, Intravenous, Two times a day, First dose on Wed11/05/25 at 2030, Dilute with 10 mL of 0.9% NaCl. Dilute each 40 mg vial with 10 mL of Normal Saline 0616 (Given - Provider: Erica Benjamin RN)1852 (Given - Provider: Bj Sy RN) 0558 (Given - Provider: Anum Morales RN)1811 (Given - Provider: Veronica Winter RN) 0627 (Given - Provider: Jonathan Bazzi RN) piperacillin-tazobactam (ZOSYN) 3.375 g in sodium chloride 0.9 % 100 mL [id number] IVPB(Linked Group 3) 3.375 g, Intravenous, at 25 mL/hr, Every 8 hours, First dose on Wed11/03/25 at 1900, For 16 doses, Use [id number] Adapter - Mix Thoroughly Before Administration 0212 (Stopped - Provider: Veronica Winter RN)0619 (New Bag - Provider: Erica Benjamin RN)1020 (Paused - Provider: Veronica Winter RN)1503 (New Bag - Provider: Bj Sy RN)1509 (Rate/Dose Verify - Provider: Veronica Winter RN)1909 (Stopped - Provider: Veronica Winter RN)2227 (New Bag - Provider: Anum Morales RN) 0228 (Stopped - Provider: Veronica Winter RN)0558 (New Bag - Provider: Anum Morales RN)0558 (Paused - Provider: Veronica Winter RN)0602 (Restarted - Provider: Veronica Winter RN)1001 (Stopped - Provider: Veronica Winter RN)1424 (New Bag - Provider: Veronica Winter RN)1810 (Paused - Provider: Veronica Winter RN)1815 (Restarted - Provider: Veronica Winter RN)1816 (Rate/Dose Verify - Provider: Veronica Winter RN)2308 (New Bag - Provider: Jonathan Bazzi RN) 0630 (New Bag - Provider: Jonathan Bazzi, SILVIO)1541 (New Bag - Provider: Veronica Winter RN) predniSONE (DELTASONE) tablet 60 mg 60 mg, Oral, Daily, First dose on Wed11/08/25 at 0900 0807 (Given - Provider: Veronica Winter RN) tacrolimus (PROGRAF) capsule 5 mg (CANCELED) 5 mg, Oral, Two times a day, First dose (after last modification) on Wed11/06/25 at 1900, LEVEL 2 HAZARDOUS MEDICATION 1852 (Given - Provider: Bj Sy RN) 0658 (Given - Provider: Anum Morales RN) tacrolimus (PROGRAF) capsule 6 mg (CANCELED) 6 mg, Oral, Two times a day, First dose (after last modification) on Wed11/05/25 at 1900, LEVEL 2 HAZARDOUS MEDICATION 0616 (Given - Provider: Erica Benjamin RN) tacrolimus (PROGRAF) capsule 6 mg 6 mg, Oral, Two times a day, First dose (after last modification) on Wed11/07/25 at 1900, LEVEL 2 HAZARDOUS MEDICATION 1811 (Given - Provider: Veronica Winter RN) 0631 (Given - Provider: Jonathan Bazzi RN) PRN Medication Order 11/06/2025 11/07/2025 11/08/2025 calcium carbonate (TUMS) chewable tablet 500 mg 500 mg, Oral, 3 times daily PRN, Heartburn, Indigestion, Starting on Wed11/05/25 at 0012 dextrose 10%-water (D10W) IV soln(Linked Group 4) 12.5 g, Intravenous, Every 15 min PRN, Low blood sugar, for glucose < 70 and alert but can not be corrected, orally or via feeding tube, Starting on Wed11/02/25 at 2024, Recheck blood sugar in 15 minutes and repeat treatment if glucose still < 70. For Smart Pump: Set volume to be infused; 125 ml for 12.5 grams or 250 mL for 25 grams. dextrose 10%-water (D10W) IV soln(Linked Group 4) 25 g, Intravenous, Every 15 min PRN, Low blood sugar, for glucose < 70 and not alert, Starting on Wed11/02/25 at 2024, Recheck glucose in 15 minutes and repeat treatment if glucose still < 70. For Smart Pump: Set volume to be infused; 125 ml for 12.5 grams or 250 mL for 25 grams. glucose chewable tablet 12 g 12 g, Oral, Every 15 min PRN, Low blood sugar, see admin instructions, Starting on Wed11/02/25 at 2024, TAKING PO: Patient has blood glucose between 50-70 mg/dL. o Give 15 grams of fast-acting carbohydrate (4 oz. fruit juice or 4 oz. non-diet soda or 3 glucose tablets). o Recheck blood sugar in 15 minutes and repeat if blood sugar is still between 50-70 mg/dL. Repeat as needed. Patient has blood glucose less than 50 mg/dL o Give 30 grams fast-acting carbohydrate (8 oz. fruit juice or 8 oz. of non-diet soda or 6 glucose tablets) on first attempt. o Recheck blood sugar in 15 minutes and repeat if blood sugar is still less than 50mg/dL. o If further attempts necessary, revert to 15 grams of carbohydrate. Repeat as needed. FEEDING TUBE: Patient has blood glucose between 50-70 mg/dL. o Give 15 grams of fast-acting carbohydrate (4 oz. fruit juice or 4 oz.non-diet soda). o Recheck blood sugar in 15 minutes and repeat if blood sugar is still between 50-70 mg/dL. Repeat as needed. Patient has blood glucose less than 50 mg/dL o Give 30 grams fast-acting carbohydrate (8 oz. fruit juice or 8 oz. of non-diet soda). o Recheck blood sugar in 15 minutes and repeat if blood sugar is still less than 50mg/dL. o If further attempts necessary, revert to 15 grams of carbohydrate. Repeat as needed. Labeled tablet strength may vary by business office assistant (may be expressed as grams of carbohydrates) per tablet. Each tablet = 4 grams of glucose. Do not give chewable tablets via feeding tube traMADol (ULTRAM) half tablet 25 mg(Linked Group 5) 25 mg, Oral, Every 6 hours PRN, moderate pain (NRS 4-6) or if patient is non-communicative (CPOT 3-5), Starting on Wed11/05/25 at 1431 2104 (See Alternative - Provider: Anum Morales RN) 2120 (See Alternative - Provider: Jonathan Bazzi RN) 170 (Given - Provider: Veronica Winter, SILVIO) traMADoL (ULTRAM) tablet 50 mg(Linked Group 5) 50 mg, Oral, Every 6 hours PRN, severe pain (NRS 7-10) or if patient is non-communicative (CPOT 6-8), Starting on Wed11/05/25 at 1431 2104 (Given - Provider: Anum Morales RN) 2120 (Given - Provider: Jonathan Bazzi, SILVIO) 1708 (See Alternative - Provider: Veronica Winter RN) Linked Groups Order Group 1: insulin lispro (humaLOG/ADMELOG) injection 0-10 UnitsJump to med 0-10 Units, Subcutaneous, At Bedtime (2100), First dose on Wed11/05/25 at 2100, HIGH ALERT MEDICATION Onset of action is rapid. Give dose 5-10 minutes before meal. Have meal at bedside. And Fingerstick Glucose, Overnight (If correction given) (CANCELED) Routine, Daily at 0300 PRN, Starting on Wed11/06/25 at 0300, Until Specified Group 2: methylPREDNISolone sod suc(PF) (SOLU-medrol) SolR 125 mg (COMPLETED)Jump to med 125 mg, Intravenous, Every 24 hours, First dose (after last modification) on Wed11/07/25 at 1000, For 1 dose, MIX THOROUGHLY PRIOR TO ADMINISTRATION. Followed by methylPREDNISolone sod suc(PF) (SOLU-medrol) SolR 60 mg (CANCELED) 60 mg, Intravenous, Every 24 hours, First dose (after last modification) on Wed11/08/25 at 1000, For 1 dose, MIX THOROUGHLY PRIOR TO ADMINISTRATION. Group 3: piperacillin-tazobactam (ZOSYN) 4.5 g in sodium chloride 0.9 % 100 mL [id number] (COMPLETED) 4.5 g, Intravenous, at 200 mL/hr, Once, On Wed11/03/25 at 1100, For 1 dose, Use [id number] Adapter - Mix Thoroughly Before Administration Followed by piperacillin-tazobactam (ZOSYN) 3.375 g in sodium chloride 0.9 % 100 mL [id number] IVPBJump to med 3.375 g, Intravenous, at 25 mL/hr, Every 8 hours, First dose on Wed11/03/25 at 1900, For 16 doses, Use [id number] Adapter - Mix Thoroughly Before Administration Group 4: dextrose 10%-water (D10W) IV solnJump to med 12.5 g, Intravenous, Every 15 min PRN, Low blood sugar, for glucose < 70 and alert but can not be corrected, orally or via feeding tube, Starting on Wed11/02/25 at 2024, Recheck blood sugar in 15 minutes and repeat treatment if glucose still < 70. For Smart Pump: Set volume to be infused; 125 ml for 12.5 grams or 250 mL for 25 grams. Or dextrose 10%-water (D10W) IV solnJump to med 25 g, Intravenous, Every 15 min PRN, Low blood sugar, for glucose < 70 and not alert, Starting on Wed11/02/25 at 2024, Recheck glucose in 15 minutes and repeat treatment if glucose still < 70. For Smart Pump: Set volume to be infused; 125 ml for 12.5 grams or 250 mL for 25 grams. Group 5: traMADol (ULTRAM) half tablet 25 mgJump to med 25 mg, Oral, Every 6 hours PRN, moderate pain (NRS 4-6) or if patient is non-communicative (CPOT 3-5), Starting on Wed11/05/25 at 1431 Or traMADoL (ULTRAM) tablet 50 mgJump to med 50 mg, Oral, Every 6 hours PRN, severe pain (NRS 7-10) or if patient is non-communicative (CPOT 6-8), Starting on Wed11/05/25 at 1431 documented in this encounter Additional Health Concerns Infection Onset Date Last Indicated Resolved Time Rule Out C. difficile 11/02/2025 11/03/20252024 5:50 PM EST Rule Out COVID-19 11/02/2025 11/03/2025 11/03/2025 6:09 AM EST Assessment Noted Time PHQ-9 Depression Total Score: 8 09/10/20 11:09 AM EDT documented as of this encounter Care Teams Regulatory And Compliance Technician Relationship Specialty Start Date End Date Dr. Chris Medel MD [address] [place] [id number] PCP - General Primary Care 10/25/25 documented as of this encounter
--- OUTSIDE RECORDS SUMMARY | 2025-11-04 09:00 | XMS_ITS | Encounter Summary ---
Author Organization [facility] Address [address] [place] [id number] Care Team Providers Care Holder Pile Driving Name Role Phone Dr. Chris Medel MD [...] release of HIV test results or diagnoses. [id number] Health Reason for Visit * Auth/Cert (Routine) Specialty Diagnoses / Procedures Referred By Gianna reyes Referred To Contact Transplant Diagnoses Elevated LFTs and bili [facility]CCP [address] [place] [address] Phone: tel: Referral ID Status Reason Start Date Expiration Date Visits Re quested Visits Authorized [id number] 1 1 Encounter Details Date Type Department Care Team (Late st Contact Info) Description 11/04/2025 9:00 AM EST - 11/04/2025 10:15 AM EST Surgery [facility] ENDOSCOPY [address] [place] [address] Matheus Bonilla MD [address] [place] [address] ERCP W Stent Placement Surgery Details Date/Time Status Location OR Service Patient Class Case Class Case Type Trauma Case? 11/04/2025 9:00 AM Posted ENDOSCOPY E4 Gastroenterology Inpatient ERCP Panel 1 Procedure LRB Anes Op Region Wound Class Comments ERCP W Stent Placement N/A General Clean C ontaminated Surgeon Surgeon Role Service Panel Rubio Reid MD Fellow Gastroenterology 1 Matheus Bonilla MD Primary Gastroenterology 1 documented in this encounter Social History [...] living in a retirement (including now)? No 11/02/2025 Utilities Answer Date [...] Sign Reading Time Taken Comments Blood Pressure 106/65 11/04/2025 9:27 AM EST Pulse 75 11/04/2025 9:27 AM EST Temperature 36.9 C (98.4 F) 11/04/2025 9:27 AM EST Respiratory Rate 18 11/04/2025 9:27 AM EST Oxygen Saturation 96% 11/04/2025 9:27 AM EST Inhaled Oxygen Concentration 96% 11/04/2025 9 :27 AM EST Weight 79.4 kg (175 lb) 11/04/2025 9:27 AM EST Height 170.2 cm (5' 7 ) 11/04/2025 9:27 AM EST Body Mass Index 27.41 11/05/2025 10:45 AM EST documented in this encounter Functional Status * Pain Score Answer Date of Assessment Author 5 11/08/2025 5:09 PM EST Veronica Winter RN * Discharge Planning Question Answer Date of Assessment Author Pre-Procedure Discharge Plan Patient's Escort Present (Name in Comment) 11/02/2025 12:10 AM Rekha Corrigan RN Responsible Adult Stacy ( ) [phone] in 11/02/2025 12:10 AM Rekha Corrigan RN * HEMANN Question Answer Date of Assessment Author SABINO (JANAL) X 11/08/2025 2:00 PM EST Veronica Kebede RN R Eye Intact;Impaired vision 11/08/2025 2:00 PM EST Veronica Winter RN L Eye Intact;Impaired vision 11/08/2025 2:00 PM EST Veronica Winter RN R Ear Intact 11/08/2025 2:00 PM EST Veronica Kebede RN L Ear Intact 11/08/2025 2:00 PM EST Veronica Kebede RN Nose Intact 11/07/2025 8:01 PM Jonathan Yeboah RN Nasal Drainage Color YADIRA 11/07/2025 8:[address] Jonathan Bazzi RN Nasal Drainage Consistency YADIRA 11/07/2025 8:01 PM Jonathan Candelario RN Throat Intact 11/07/2025 8:01 PM Jonathan Yeboah RN Tongue [place] & moist 11/07/2025 8:01 PM Jonathan Yeboah RN Voice Deep 11/07/2025 8:01 PM Jonathan Yeboah RN Mucous Membrane(s) Moist;[place];Intact 11/08/2025 2:00 P M ULISES ToddtorovaVeronica RN Teeth Missing teeth 11/08/2025 2:00 PM ULISES Guzman orovaVeronica RN Lips Symmetrical;Intact 11/07/2025 8:01 PM Jonathan Candelario RN * Weight in kg Answer Date of Assessment Author 79.38 11/05/2025 10:45 AM Rekha Corrigan RN * Height in cm Answer Date of Assessment Author 170.2 11/05/2025 10:45 AM Rekha Corrigan RN * Vital Signs-Intra Procedure Question Answer Date of Assessment Author ETCO2 33 11/05/2025 11:30 AM Cony Zavala RN Cardiac Rhythm NSR 11/05/2025 11:30 AM EST Cony Briscoe RN * Discharge Planning Question Answer Date [...] Removed Yes in room 11/05/2025 10:46 AM EST Rekha Servin RN * Pain Med Side Effects - Required every re-assessment Answer Date of Assessment Author None 11/07/2025 10:21 PM EST Jonathan Hector RN * Cipriano Score Answer Date of Assessment Author 10 11/05/2025 1:18 PM EST Kenna Carver RN * Cipriano Question Answer Date of Assessment Author Oxygenation 2 11/05/2025 1:18 PM EST Kenna Lennon, RN Activity 2 11/05/2025 1:18 PM EST Kenna Lennon, RN Circulation 2 11/05/2025 1:18 PM EST Kenna Lennon, SILVIO Respiration 2 11/05/2025 1:18 PM Kenna Estevez, SILVIO Consciousness 2 11/05/2025 1:18 PM EST Kenna Bradshaw, RN * Tania Coma Scale Question Answer Date of Assessment Author Eye Opening 1 11/08/2025 2:00 PM EST Veronica Kebede RN Best Motor Response 6 11/08/2025 2:00 PM Veronica Curran RN Best Verbal Response 5 11/08/2025 2:00 PM Veronica Serra RN Tania Coma Scale Score 12 11/08/2025 2:00 PM EST Veronica Winter RN * Skeletal Traction Question Answer Date of Assessment Author Skeletal Traction No 11/08/2025 2:00 PM Veronica Smith RN * Traction Question Answer Date of Assessment Author Cervical Traction No 11/08/2025 2:00 PM EST Veronica Winter RN Tomas's Traction No 11/08/2025 2:00 PM EST Veronica Portillo RN * External Fixators Question Answer Date of Assessment Author Extremity External Fixator No 11/08/2025 2:0 0 PM Veronica Smith RN * IV Assessment Information Question Answer [...] an d reviewed? No 11/02/2025 6:13 PM EST Myles Albarran RN * Case Status Question Answer Date of Assessment Author Case Status Discharge ready 11/08/2025 1:03 PM EST Maddie Kenny, STRAW HAT BRIM CUTTER OPERATOR, COUNSELING PSYCHOLOGIST * Assessment Information Question Answer Date of Assessment Author Assessment Information Shift Assessment 11/08/2025 2:0 0 PM EST Veronica Winter RN * MEWS Score Question Answer Date of Assessment Author MEWS Score 1 11/08/2025 5:00 PM EST Sophie Martínez * Total Workload Score Answer Date of Assessment Author 54.81 11/08/2025 5:15 PM EST Sophie Edge * P.O. Intake Question Answer Date of Assessment Author P.O. 500 11/08/2025 2:00 PM EST Veronica Kebede RN Percent Meals Eaten (%) 100 11/08/2025 2:00 PM Veronica Smith RN Diet Type Oral diet as ordered 11/08/2025 2:00 PM Veronica Serra RN Feeding Able to feed self 11/08/2025 2:00 PM Veronica Smith RN Appetite Good 11/06/2025 7:21 PM EST Mercy Mendoza * Sepsis Risk Score Question Answer Date of Assessment Author Sepsis Risk Score 5.5 11/08/2025 5:[address] Joseba, Iris * Post Acute Care Treatment Preferences Question Answer Date of Assessment Author Treatment Preferences Distance 11/08/2025 1:07 PM Maddie Burns, STRAW HAT BRIM CUTTER OPERATOR, COUNSELING PSYCHOLOGIST * Anthropometrics Question Answer Date of Assessment Author BMI (Calculated) 27.4 11/05/2025 10:45 AM Rekha Corrigan, SILVIO * POSS - for High Risk Patients Answer Date of Assessment Author 1 11/07/2025 10:21 PM Jonathan Marcial RN * Height Percent Change Answer Date of Assessment Author 0 11/05/2025 10:45 AM Rekha Corrigan RN * Interventions Question Answer Date of Assessment Author Date of Service 80[address] 11/07/2025 12:59 PM Citlaly Potter RN Time Spent with [...] you have Diabetes? No 11/02/2025 6:15 PM Myles Carrera RN * [facility] Fall Predictive Model (EFPM) Score Answer Date of Assessment Author 66.3 11/08/2025 4:01 PM EST Batch Job , Background User * Fall Risk Question Answer Date of Assessment Author Fall Risk Precautions In Place [place] 11/08/2025 2:45 PM Veronica Smith RN Other reasons for High Fall Precautions Clinical Judgement 11/08/2025 2:45 PM Veronica Smith RN * Urine Output/Observations Question Answer Date of Assessment Author Urine 0 11/08/2025 7:20 AM Chelsea Fuchs Urine Source Urethra 11/08/2025 12:32 PM Chelsea Guevara Urine Occurrence 1 11/08/2025 12:32 PM Chelsea Fuchs Urinary Incontinence No 11/08/2025 12:32 PM Chelsea Fuchs * Stool Output/Observations Question Answer Date of Assessment Author Stool Occurrence 1 11/08/2025 12:32 PM Chelsea Fuchs Stool 1 11/07/2025 9:11 AM EST Veronica Kebede RN Stool Source Rectum 11/08/2025 12:32 PM Chelsea Guevara Bowel Incontinence No 11/08/2025 12:32 PM Chelsea Bunn * Output Activities Question Answer Date of Assessment Author Cyndi-care No 11/03/2025 7:30 PM Mariza Avalos RN Distance Ambulated (ft) 20 11/04/2025 9:00 A M EST Jolene Bell RN * Other Output Question Answer Date [...] Elevated eCART score 11/03/2025 10:15 AM Kirk Smith RN * Risk Category Answer Date of Assessment Author Average 11/08/2025 2:42 PM EST Interface , Doc Flowsheet In * Risk Score Answer Date of Assessment Author 50 11/08/2025 2:42 PM EST Interface , Doc Flowsheet In * Disposition Answer Date of Assessment Author Stable/Expected 11/05/2025 2:11 PM Sylvia Schmidt RN * eCART Comments Answer Date of Assessment Author VSS on RA, sitting up bedsid e. BP soft, pt asymptomatic. no complaints/issues rafael. AOx4 11/03/2025 10:30 AM Kirk Smith RN * Is infection likely? Answer Date of Assessment Author Unsure 11/05/2025 2:10 PM Sylvia Schmidt RN * Worried about this patient? Answer Date of Assessment Author No 11/05/2025 2:10 PM Sylvia Schmidt RN * Vital Signs Question Answer Date [...] Type Continuous 11/05/2025 11:30 AM E Cony Lu RN * Patient Observation Question Answer Date of Assessment Author Patient Observations Pt VSS, with p t, site C/D/I 11/05/2025 1:18 PM Kenna Chu RN * Gastrointestinal Question Answer Date of Assessment Author Last BM Date [address] 11/08/2025 2:00 PM Veronica Duron RN Passing Flatus Yes 11/08/2025 2:00 PM EST Veronica Clark RN Palpation/Percussion Soft;No guarding 11/08/2025 2:00 PM Veronica Smith RN Bowel Sounds (All Quadrants) Active 11/08/2025 2 :00 PM EST Veronica Winter RN Gastrointestinal (WDL) WDL 11/08/2025 2:00 PM EST Veronica Winter RN Abdomen Inspection Soft;Rounded 11/08/2025 2:00 PM Veronica Smith RN GI Symptoms None 11/08/2025 2:00 PM EST Veronica Kebede RN * Peripheral Vascular Question Answer Date of Assessment Author Peripheral Vascular (WDL) WDL 11/08/2025 2:00 PM EST Veronica Winter RN * Musculoskeletal Question Answer Date of Assessment Author RUE Full movement 11/08/2025 2:00 PM EST Veronica Patel RN RLE Full movement 11/08/2025 2:00 PM EST Veronica Patel RN LUE Full movement 11/08/2025 2:00 PM EST Veronica Patel RN LLE Full movement 11/08/2025 2:00 PM EST Veronica Patel RN * Urine Assessment Question Answer Date of Assessment Author Urine Color Yellow/straw 11/07/2025 8:01 PM Jonathan Yeboah RN Urine Appearance Clear 11/07/2025 8:01 PM [...] RN Ambulatory Aids 0 11/08/2025 2:00 PM Veronica Ramos Sa, RN Intravenous Therapy/Heparin/ Saline Lock 20 11/08/2025 2:00 PM Veronica Smith RN Gait/Transferring 0 11/08/2025 2:00 PM Veronica Smith RN Mental Status 0 11/08/2025 2:00 PM Veronica Garcia RN Morse Fall Risk Score 35 11/08/2025 2:00 PM Veronica Smith RN * Sky Scale Question Answer Date of Assessment Author Sensory Perceptions 4 11/08/2025 2:00 PM ES Veronica Alejandro RN Moisture 4 11/08/2025 2:00 PM EST Veronica Kebede RN Activity 4 11/08/2025 2:00 PM EST Veronica Kebede RN Mobility 4 11/08/2025 2:00 PM EST Veronica Kebede RN Nutrition 4 11/08/2025 2:00 PM EST Veronica Kebede RN Friction and Shear 3 11/08/2025 2:00 PM EST Veronica Winter RN Sky Scale Score 23 11/08/2025 2:00 PM EST Veronica Winter RN * Cough Answer Date of Assessment Author None 11/06/2025 6:30 PM Bj Gutierrez RN * Cardiac Question Answer Date of Assessment Author Cardiac (WDL) WD 11/08/2025 2:00 PM EST Veronica Patel RN Telemetry/Pantry Worker No 11/08/2025 2:00 PM Veronica Smith RN [...] Chelsea Olson Temp 98.8 11/08/2025 12:32 PM Chelsea Guevara Pulse 67 11/08/2025 12:32 PM Chelsea Guevara SpO2 96 11/08/2025 12:32 PM Chelsea Guevara O2 Flow Rate (L/min) 0 11/05/2025 4:09 PM E Tamar Smith O2 Device None (Room air) 11/08/2025 12:32 PM EST Chelsea Flannery * Height and Weight Question Answer [...] has the electric, gas, oil, or water [employer] threatened to shut off services in your [...] living in a retirement (including now)? No 11/02/2025 6:18 PM Myles [...] Myles Carrera RN Unplanned Weight Gain in [facility] t Three Months 2 11/02/2025 6:19 PM Myles Carrera RN Unplanned Weight Loss in [facility] t Three Months 2 11/02/2025 6:19 PM Myles [...] Author Verbal scale (0-10) 11/05/2025 10:45 AM EST Rekha Julien ra, RN * Abuse/Trauma History Question Answer Date of Assessment Author Exploitation Denies 11/04/2025 9:32 AM EST Kenna Lennon RN Physical Abuse Denies 11/02/2025 6:00 PM EST Myles Kelley RN Verbal Abuse Denies 11/02/2025 6:00 PM EST Myles Cesar RN Sexual Abuse No 11/02/2025 6:00 PM EST Myles Cesar RN Neglect Denies 11/02/2025 6:00 PM EST Myles Cesar RN * Values / Beliefs Question Answer Date of Assessment Author Cultural Requests During Hospitalization No 11/04/2025 9:32 AM Kenna Chu RN Spiritual Requests During Hospitalization No 11/04/2025 9:32 AM Kenna Chu RN * Stool Assessment Question Answer Date of Assessment Author Stool consistency: [place] Stool Chart Type 7: Watery, no solid pieces, entirely liquid 11/04/2025 9:00 AM EST Jolene Bell RN Stool Color YADIRA 11/07/2025 8:01 PM EST Jonathan Lucia RN Stool Amount YADIRA 11/07/2025 8:01 PM Jonathan Yeboah RN Stool Appearance YADIRA 11/07/2025 8:01 PM Jonathan Grayson RN * Genitourinary Question Answer Date of Assessment Author Genitourinary (WDL) WD 11/08/2025 2:00 PM Veronica Curran RN * Neurological Question Answer Date of Assessment Author Neuro (Freddie) WD 11/08/2025 2:00 PM Veronica Duron RN Neuro Additional Assessments Tania Coma Scale 11/08/2025 2:00 PM Veronica Smith RN * Patient Belongings Question Answer Date of Assessment Author Does The Patient Have Belongings Yes 11/02/20 6:25 PM Myles Carrera RN * Safe Environment Question Answer Date of Assessment Author Patient Monitor N/A 11/05/2025 9:57 PM Erica Gallo RN Safety Equipment at Bedside None 11/04/2025 [...] Author Precautions None 11/05/2025 9:57 PM Erica Woodard RN * Family/Significant Other Communication Question Answer Date of Assessment Author Overnight Visitors Yes - Guidelines Discussed 11/05/2025 9:57 PM Erica Woodard RN Family/Support Person Visiting 11/05/2025 9:57 PM Erica Woodard, SILVIO * Continuous Passive Motion Question Answer Date of Assessment Author CPM No 11/04/2025 9:00 AM Jolene Lawson RN * Comfort and Environment Interventions Question Answer Date of Assessment Author Comfort Repositioned 11/05/2025 9:57 PM Erica Woodard RN * Entertainment Question Answer Date of Assessment Author Entertainment Activities Television 11/05/2025 9:57 PM Erica Woodard, SILVIO * Pre-Transfusion Documentation Question Answer Date of [...] mL MALE 661 11/05/2025 10:45 AM Rekha Corrigna RN IBW/kg (Calculated) FEMALE 61.6 11/05/2025 10: [...] of Assessment Author Time of last liquid 74962 11/04/2025 9:14 AM Kenna Laura RN Date of last liquid 34543 11/05/2025 10:46 AM Rekha Juarez RN Date of last solid 86882 11/05/2025 10:46 AM Rekha Cuenca RN * Cipriano Score Answer Date of Assessment Author 10 11/05/2025 1:18 PM Kenna Chu RN * Vital Signs Question Answer Date of Assessment Author Heart Rhythm SR 11/04/2025 12:00 PM Kenna Cabezas RN * Leonard-Suicide Severity Rating Scale (C-SSR) Part 1 Question Answer Date of Assessment Author In the past month, have you wished you were or wished you could go to sleep and not wake up? No 11/02/2025 6:14 PM Myles Carrera RN In the past month, have you actually had any thoughts of killing yourself? No 11/02/2025 6:14 PM Myles Carrera RN * Leonard-Suicide Severity Rating Scale (C-SSR) Part 2 Question [...] UNPLANNED READMISSION Answer Date of Assessment Author 21.86 11/08/2025 5:43 PM Wicho Restrepo * Influenza [...] Sites No 11/07/2025 9 :21 PM Jonathan Canedlario RN Pain Type Surgical pain;Acute pain 025 [...] 11/08/2025 1 :07 PM Maddie Burns MSW, COUNSELING PSYCHOLOGIST * Transportation Information Question Answer Date of Assessment Author Transfer Mode/Level of Care Family 11/08/2025 1: 07 PM Maddie Burns STRAW HAT BRIM CUTTER OPERATOR, COUNSELING PSYCHOLOGIST * Patient/Family Involvement Question Answer Date of Assessment Author Core Measure-If this is a stroke patient and Rehab Services were recommended did the patient refuse? No 11/08/2025 1:07 PM Maddie Burns STRAW HAT BRIM CUTTER OPERATOR, COUNSELING PSYCHOLOGIST SW/CM Name and phone # Maddie Jeter STRAW HAT BRIM CUTTER OPERATOR, COUNSELING PSYCHOLOGIST [phone] 11/08/2025 1:07 PM Maddie Burns STRAW HAT BRIM CUTTER OPERATOR, COUNSELING PSYCHOLOGIST Family Member Notified at Discharge Yes 11/08/2025 1:07 PM Maddie Burns, STRAW HAT BRIM CUTTER OPERATOR, COUNSELING PSYCHOLOGIST Family Member Name and Relationship Notified at Discharge Stacy Serrano-spouse 11/08/2025 1:07 PM Maddie Burns, STRAW HAT BRIM CUTTER OPERATOR, COUNSELING PSYCHOLOGIST Family Contact Number [phone] 11/08/2025 1:07 PM Maddie Bursn STRAW HAT BRIM CUTTER OPERATOR, COUNSELING PSYCHOLOGIST Role of the [employer] Explained Yes 11/08/2025 1:07 PM Maddie Burns STRAW HAT BRIM CUTTER OPERATOR, COUNSELING PSYCHOLOGIST Role of the Shim Plug Cutter Explained Yes 11/08/2025 1:07 PM Maddie Burns STRAW HAT BRIM CUTTER OPERATOR, COUNSELING PSYCHOLOGIST Patient/Family Informed of Discharge Plan Yes 11/08/2025 1:07 PM EST Steffany, Tsipporah, STRAW HAT BRIM CUTTER OPERATOR, COUNSELING PSYCHOLOGIST Plan Reviewed With Patient, Family, or Significant Other Yes 11/08/2025 1:07 PM EST Steffany, Tsipporah, STRAW HAT BRIM CUTTER OPERATOR, COUNSELING PSYCHOLOGIST Patient or family are unable or unavailable to participate in patient's discharge plan No 11/08/2025 1:07 PM EST Steffany, Tsipporah, STRAW HAT BRIM CUTTER OPERATOR, COUNSELING PSYCHOLOGIST Patient and or family are aware and in agreement with the discharge plan Yes 11/08/2025 1:07 PM EST Steffany, Tsipporah, STRAW HAT BRIM CUTTER OPERATOR, COUNSELING PSYCHOLOGIST Plan reviewed with MD and other members of the health care team Yes 11/08/2025 1:07 PM EST Steffany, Tsipporah, STRAW HAT BRIM CUTTER OPERATOR, COUNSELING PSYCHOLOGIST Care Plan Completed Yes 11/08/2025 1:07 PM ES T Steffany, Tsipporah, STRAW HAT BRIM CUTTER OPERATOR, COUNSELING PSYCHOLOGIST * LACE+ Score Answer Date of Assessment Author 79 11/08/2025 5:43 PM Wicho Restrepo * Pain Score Answer Date of Assessment Author 5 11/08/2025 5:09 PM Veronica Smith RN * P.O. Intake Question Answer Date of Assessment Author Percent Meals Eaten (%) 100 11/08/2025 2:00 P M Veronica Smith, SILVIO * Patient's Post-Discharge Goals Question Answer Date of Assessment Author Patient's Post-Discharge goals Get stronger at home 11/08/2025 1:07 PM EST Steffany, Jackieh, STRAW HAT BRIM CUTTER OPERATOR, COUNSELING PSYCHOLOGIST * Calculated Energy Needs Question Answer Date of Assessment Author [place] St Jeor Equation (RMR) 1,542.42 11/05/2025 10:45 AM Rekha Corrigan, SILVIO Fluid Requirements (mL) 2,381.37 11/05/2025 10:45 AM Rekha Corrigan, SILVIO * Anthropometrics Question Answer Date of Assessment Author BMI (Calculated) 27.4 11/05/2025 10:45 AM Rekha Corrigan, SILVIO * Community Services at Discharge Question Answer Date of Assessment Author Home Health Care Name/Phone # post discharge A Home Health Care [phone] 11/08/2025 1:07 PM ULISES LeonSteffany, Jackiemateusz, STRAW HAT BRIM CUTTER OPERATOR, COUNSELING PSYCHOLOGIST Home Health Services Types at Discharge PT/OT/CMM INSPECTOR;Residential 11/08/2025 1:07 PM ULISES LeonSteffany, Darrianrichardfrancomateusz, STRAW HAT BRIM CUTTER OPERATOR, COUNSELING PSYCHOLOGIST Community Services at Home post discharge Home Health Care 11/08/2025 1:07 PM ULISES Jeter, Darrianrichardfranco mateusz, STRAW HAT BRIM CUTTER OPERATOR, COUNSELING PSYCHOLOGIST Home Health Services agency list provided No, patient would like to continue services with previous provider 11/08/2025 1:07 PM ULISES LeonSteffany, Jackiemateusz, STRAW HAT BRIM CUTTER OPERATOR, COUNSELING PSYCHOLOGIST * Facial Expression Answer Date of Assessment Author 0 11/05/2025 3:32 PM Sylvia Schmidt RN * Compliance with the Ventilator (Intubated Patients) [...] 9:00 A M Jolene Lawson RN * AM-PAC Mobility Question Answer Date of Assessment Author Help Turning From Back to Si de While Flat in Bed Without Using Siderails 4 11/08/2025 2:00 PM Veronica Smith RN Help Moving From Lying On Ba ck [...] AM-PAC Mobility Score 24 11/08/2025 2:00 PM EST Veronica Winter RN Translation to [facility] 8 11/08/2025 2:00 PM EST Veronica Winter RN * Mobility: AM-PAC/-HL Question Answer Date of Assessment Author [facility] Score - Performed/Achieved 7 Walks 25 feet or more 11/06/2025 6:30 PM EST Bj Sy RN -[facility] Score - Performed/Achieved Goal (Y/N) No 11/04/2025 9:00 AM EST Jolene Bell RN Early Mobility/Exercise Safety Screen (Med/Surg) Proceed with mobilization - No exclusion criteria met 11/06/2025 6:30 PM Bj Gutierrez RN Goal -[facility] 8 Walks 250 feet or more 11/06/2025 6:30 PM EST Bj Sy RN * Gastrointestinal Question Answer Date of Assessment Author [place] BM Date [address] 11/08/2025 2:00 PM EST Veronica Kebede RN * Musculoskeletal Question Answer Date of Assessment Author RUE Full movement 11/08/2025 2:00 PM EST Veronica Patel RN RLE Full movement 11/08/2025 2:00 PM EST Veronica Patel RN LUE Full movement 11/08/2025 2:00 PM EST Veronica Patel RN LLE Full movement 11/08/2025 2:00 PM EST Veronica Patel RN Musculoskeletal (WDL) WDL 11/08/2025 2:00 PM [...] regulated 11/08/2025 2:00 PM Veronica Lundberg RN Heels/Feet Foot of bed elevated [...] Patient Declined 11/06/2025 7:25 AM Starla Maravilla * Adult IBW/VT Calculations Question Answer Date [...] 2 11/02/2025 6:26 PM Myles Carrera RN CMM INSPECTOR Evaluation Needed 2 11/02/2025 6:26 PM Myles Carrera RN * Assistive Devices Question Answer Date of Assessment Author Assistive Devices Eyeglasses;Walker 11/02/2025 6:12 PM Myles Carrera RN * Height and Weight Question Answer Date of Assessment Author Height 67 11/05/2025 10:45 AM Rekha Santiago ra, RN Weight 2800 11/05/2025 10:45 AM Rekha Santiago ra, RN BMI (Calculated) 27.5 11/05/2025 10:45 AM Rekha Corrigan RN * NPO Question Answer Date of Assessment Author NPO Except for Medications Yes 11/05/2025 10: 46 AM Rekha Corrigan RN * Leonard-Suicide Severity Rating Scale (C-SSR) Part 1 Question [...] Author Weight Change 0 11/05/2025 10:45 AM EST Rekha Arredondo RN * Comprehensive Pain Assessment (with every [...] Candelario RN Pain Type Surgical pain;Acute pain 9:21 PM Jonathan Candelario RN * Integumentary Question Answer Date of Assessment Author Skin Color Appropriate for ethnicity 11/08/2025 2:00 PM Veronica Smith RN Skin Condition/Temp Warm;Dry 11/08/2025 2:00 PM E Veronica Gray RN Skin Integrity Intact 11/08/2025 2:00 PM EST Veronica Clark RN Skin Location abd 11/08/2025 2:00 PM EST Veronica Patel RN documented as of this encounter Mental Status * Cody Agitation Sedation Scale Question Answer Entry Date Author Cody Agitation Sedation Scale -3 11/05/2025 11:30 AM EST Cony Lu RN * Vital Signs-Intra Procedure Question Answer Entry Date Author ETCO2 33 11/05/2025 11:30 AM EST Beverleyedmund Cony currie RN Cardiac Rhythm NSR 11/05/2025 11:30 AM EST José Luis anamariaCony RN * Tania Coma Scale Question Answer Entry Date Author Eye Opening 1 11/08/2025 2:00 PM EST Veronica Kebede RN Best Motor Response 6 11/08/2025 2:00 PM ES Veronica Alejandro RN Best Verbal Response 5 11/08/2025 2:00 PM E Veronica Gray RN Tania Coma Scale Score 12 11/08/2025 2:00 PM Veronica Smith RN * Psychosocial Question Answer Entry Date Author Patient Behaviors/Mood Calm;Cooperative 11/07/2025 8:0 1 PM EST Jonathan Bazzi RN * Vitals Question Answer Entry Date [...] Sedation Level Score 2 11/07/2025 9:21 PM Jonathan Candelario RN Pain Assessment NRS Pain Score (0-10) 11/08/2025 2:00 PM Veronica Smith RN * Integumentary Question Answer Entry Date Author Skin Condition/Temp Warm;Dry 11/08/2025 2:00 PM Veroniac Curran RN documented in this encounter Discharge Summaries * MADHAV Carlos LSW - 11/08/2025 2:11 PM EST Health Care Management Discharge Summary Patient name: David Serrano Patient : 1960 Age: 65 y.o. Gender: male Patient emergency contact: Extended Emergency Contact Information Primary Emergency Contact: Stacy Serrano [address]: [address] [place] [address] Mobile Relation: Spouse Attending provider: Vani Winkler MD Primary care physician: Dr. Chris Medel MD The MD has indicated that the patient is ready for discharge. David Serrano was referred and accepted at at . The patient will be transported by at Transfer Mode/Level of Care: Family DC Summary and Home Health orders have been faxed to facility by ALFREDA Jeter. The plan has been reviewed: Patient/Family Informed of Discharge Plan: Yes Plan Reviewed With Patient, Family, or Significant Other: Yes Patient and or family are aware and in agreement with the discharge plan: Yes Family Member Name and Relationship Notified at Discharge: Stacy Serrano-spouse Family Contact Number: [phone] Plan reviewed with and other members of the health care team: Yes Care Plan Completed: Yes No further CM/SW needs. This plan has been reviewed with the multi-disciplinary team. Treatment Preferences Treatment Preferences: Distance Post-Discharge Goals Patient's Post-Discharge goals: Get stronger at home Post Acute Care Provider Information: Community Services at Discharge Community Services at Home post discharge: Home Health [facility] Name/Phone # post discharge: [facility] [phone] Home Health Services Types at Discharge: PT/OT/CMM INSPECTOR, Residential TONYA Aguillon [phone] * Breonna Villa MD - 11/07/2025 12:52 PM EST Subspecialty Follow-up Appointment Chart Note Service: Liver Transplant Subspecialty Follow-up Disposition: The patient requires subspecialty follow-up as noted below: Note: This information is for [facility] Scheduling use only. It is not the responsibility of the primaryinpatient service to schedule this appointment. Visit type:Faculty Clinic Name of provider to schedule with: Dr. Zimmerman Timin-2 weeks of discharge Location: [facility] Ok to overbook if there are no open appointment slots?: No Reason for follow up: ACR Comments: Discharged on 60mg prednisone for Mod ACR In case of scheduling conflict, contact Pager/Cell phone number: Fellow Oncricky VILLA MD 11/07/2025 12:52 PM documented in [...] under 2 gm/day. Please discuss withyour senior marketing coordinator if you have any question about appropriate dose to take. Other Instructions: Call post-liver transplant clinic with questions [phone] or call [facility] at [phone] and ask for the liver certified wellness program coordinator vacation sales advisor if you experience any of the following: [...] Date and time as instructed by your certified wellness program coordinator in liver transplant clinic in [facility], 3rd floor or Video Visit. documented [...] 11/06/25 0616 traMADol 25 mg Q6H PRN LAISHA Ferreira Or traMADol 50 mg Q6H PRN LAISHA Ferreira 50 mg at 11/05/25 2200 Physical Exam [...] Bowen Gonzalez Jr., MD, MACP Professor & Library Circulation Assistant, Classical Hematology Arturo Penaloza MD Endowed Chair [...] Feeling better this AM PE Vitals: 11/05/25 1930 11/06/25 0300 11/06/25 0725 [...] 4.1 4.6 CL 106 106 103 CO2 BUN CREATININE 1.04 1.20 0.97 CALCIUM 7.9* 7.2* [...] BID7 Continuous Infusions: electrolyte 75 mL/hr (11/05/25 4114) PRN Meds: calcium carbonate, dextrose 10% in [...] Lane Troy MD Transplant and Hepatobiliary Surgery [phone] (cell) * Lore Nevarez CNP - 11/06/2025 7:47 AM EST GI FOLLOW UP NOTE ID: [id number] David Serrano 65 yo male S/p ERCP [...] Carbon Dioxide (CO2) 21 - 33 mmol/L 23 21 Anion Gap 3 - 16 mmol/L 7 7 8 8 BUN 7 - 25 mg/dL 19 20 21 Creatinine 0.60 - 1.30 [...] reviewed with advanced GI attending, Dr. Brian Nevarez, MICROFILM MACHINE OPERATOR Pancreas/Biliary team * Sherrie StevensLAISHA crockett - 11/05/2025 2:28 PM EST Transplant Surgery [...] 4.2 4.1 CL 105 106 106 CO2 23 23 BUN 19 20 CREATININE 1.00 1.04 1.20 CALCIUM 7.9* 7.9* [...] Lane Troy MD Transplant and Hepatobiliary Surgery [phone] (cell) * Lore Nevarez CNP - 11/05/2025 8:25 AM EST GI FOLLOW UP NOTE ID: [id number] David Serrano 65 yo male S/p ERCP [...] reviewed with advanced GI attending, Dr. Irene Nevarez CNP Pancreas/Biliary team * Keith Novak MD - 11/04/2025 9:12 AM EST Transplant Surgery Progress Note Patient: David Serrano Admit Date: 11/02/2025 Transplant date: s/p OLT 10/17/25 SUBJECTIVE KITTY DE LEONS. ERCP today OBJECTIVE Vitals: Temp: [97.8 ??F [...] 8.5* PLT 220 240 223 Recent Labs 11/02/25 2108 11/03/25 0646 11/04/25 0339 NA 132* 133 136 [...] Vani Winkler MD PhD Transplant Surgery * Kieth Grimm CNP - 11/03/2025 9:00 AM EST Transplant Surgery [...] : Voids spontaneously Labs: Recent Labs 11/01/25 0711/02/252107 WBC 13.2 12.2* HGB 7.7* 5.7* PLT 122 266 Recent Labs 11/01/25 0711/02/25 21011/03/25 0646 NA 132 132* 133 K 4.3 4.6 3.9 CL 104 103 105 CO2 27* 22 21 BUN 24 29* 25 CREATININE 0.90 1.17 1.00 CALCIUM 8.1 7.8* 7.9* MG -- 1.3* 1.6 PHOS 3.1 3.4 3.1 Recent Labs 11/01/25 0711/02/258 11/03/25 0646 AST 87 37 47* ALT 96 [...] Gomez RN - 11/02/2025 10:40 PM EST 11/02/252239 Peripheral IV 11/02/25 Anterior;Right Forearm Ultrasound Guided Placement Date/Time: 11/02/252239 Size (Gauge): 20 G Orientation: Anterior;Right Location: ForearmLocal Anesthetic: None Inserted by: SILVIO Gomezload test mechanic Insertion Method: Ultrasound Guided Insertion attempts: 1 [...] Pinzon MD - 11/05/2025 10:08 AM EST [facility] PRE-SEDATION ASSESSMENT, HISTORY & PHYSICAL Date: [...] Reid MD - 11/04/2025 8:06 AM EST [facility] PRE-SEDATION ASSESSMENT, HISTORY & PHYSICAL Date: [...] Surgeon: Vani Winkler MD; Location: [facility]; Service: Transplant; Laterality: N/A; Medications Home Medications [...] History and Physical Patient: David Serrano CSN: [id number] Requesting Physician: Dr. Winkler History CC: hyperbilirubinemia [...] Surgeon: Vani Winkler MD; Location: [facility]; Service: Transplant; Laterality: N/A; Medications: Home Medications [...] Resource Strain: Low Risk (06/15/2025) Received from [facility] Overall Financial Resource Strain (CARDIA) [...] No Physical Activity: Inactive (06/15/2025) Received from [facility] Exercise Vital Sign On average, how many days per week do you engage in moderate to strenuous exercise (like a brisk walk)?: 0 days On average, how many minutes do you engage in exercise at this level?: 0 min Stress: No Stress Concern Present (06/15/2025) Received from [facility] [employer] - Occupational Stress Questionnaire Do you feel stress - tense, restless, nervous, or anxious, or unable to sleep at night because yourmind is troubled all the time - these days?: Only a little Social Connections: Socially Integrated (06/15/2025) Received from [facility] Social Connection and Isolation Panel In a typical week, how many times do you talk on the phone with family, friends, or neighbors?: More than three times a week How often do you get together with friends or relatives?: More than three times a week How often do you attend hoahaoism or mosque services?: More than 4 times per year Do you belong to any clubs or organizations such as hoahaoism groups, unions, fraternal [...] mg daily SQH Floor ASPEN PARR MD [facility] General Surgery Cosigned by Vani Winkler MD [...] Reaves MD - 11/05/2025 11:35 AM EST [id number] Procedure Date: 11/05/2025 11:35 AM Patient Name: David Serrano Date of : 1960 Admit Type: Inpatient Age: 65 Gender: Male Note Status: Finalized Attending MD: Nigel Reaves MD, [id number] Procedure: Liver biopsy Indications: Abnormal Liver enzymes [...] by the physician, the nurse and the sugarcane research technician in the procedure room. Mental Status [...] gauge in diameter was made with the BioPince gun using ultrasound to jamie the site. [...] referring physician. Procedure Code(s): --- Professional --- 11819, GC, Biopsy of liver, needle; percutaneous 56764, GC, Ultrasonic guidance for needle placement (eg, biopsy, aspiration, injection, localization device), imaging supervision and interpretation 79764, GC, Moderate sedation services provided by the same physician or other qualified health healthcare recruiter performing the diagnostic or therapeutic service that the sedation supports, requiring the presence of an independent trained observer to assist in the monitoring of the patient's level of consciousness and physiological status; initial 15 minutes of intraservice time, patient age 5 years or older Diagnosis Code(s): --- Professional --- R74.9, Abnormal serum enzyme level, unspecified CPT copyright 2022 [employer]. All rights reserved. The codes documented in this report are preliminary and upon hydrogenation operator review may be revised to meet current compliance requirements. Attending Participation: I was present and participated during the entire procedure, including non-carcamo portions. Nigel Reaves MD Nigel Reaves MD 11/05/2025 2:47:17 PM This report has been signed electronically.MD Sherley Ross MD Pedro Pinzon MD 11/05/2025 11:40:[address] [place] [address], [facility] * Nigel Reaves MD - 11/05/2025 11:23 AM EST LIVER BIOPSY Brief Op Note David Serrano 11/02/2025 - 11/05/2025 Pre-op Diagnosis: Hyperbilirubinemia [E80.6] Post-op Diagnosis: Elevated LFTs Procedure(s): LIVER BIOPSY (percutaneous), 1 pass with 16 G needle using Ultrasound to jamie site Surgeon(s): Nigel Reaves MD Anesthesia: Moderate Sedation Staff: Fellow: Pedro Pinzon MD Endoscopy Nurse: Manohar Brown RN; Cony Lu RN Dyslexia Teacher: Jeffry Mata Estimated Blood Loss: Minimal Specimens: [...] Q8H Keith Grimm CNP 3.375 g at 11/05/25 0421 predniSONE 20 mg Daily 0900 Aspen Parr MD 20 mg at 11/05/25 0830 sodium chloride 0.9 % 20 mL/hr Continuous LAISHA Ferreira sodium chloride 0.9 % 50 mL/hr Continuous Breonna Villa MD 50 mL/hr at 11/05/25 1047 sodium chloride 0.9 % 20 mL/hr Continuous LAISHA Ferreira [Held by provider] sulfamethoxazole-trimethoprim 1 tablet Daily [...] alcohol use. He was seen in endoscopy vacation sales advisor to his procedure. 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 Matheus Bonilla MD * Viv Ashby, STRAW HAT BRIM CUTTER OPERATOR - 11/03/2025 2:08 PM EST [facility] Case Management/Social Work Department Brief Assessment Re-Admission within 30 days Planned or unplanned? Unplanned If planned: Reason? If unplanned: Reason? Hyperbilirubinemia Discuss with patient any barriers to prevent readmission? N/A Patient Information Admission diagnosis: Elevated LFTs and bili Demographic verified and updated as needed Support Systems Designated decision maker (POA or Next of Kin): Stacy Serrano Phone #: [phone] Relationship: Spouse Living Arrangements Prior to Hospitalization [...] jaundice. Patient recently discharged on 10/[address] [facility] through [facility] ([phone]) for PT/OT and SN (lab draws). Per previous assessment, Patient is a 65 year old male, and living with spouse in a home in [place], [place]. Patient reports ~2 steps into residence and 0 inside residence. Patient reports having 2 children Lan Serrano ([phone]) and Gloria Banegas ([phone]). Patient denies any concerns for safety or abuse at residence. Patient reported independencewith ADLs. Community Resources Prior to Hospitalization Home Health Care Services and Phone #: Mazree [facility] ([phone]) Home Respiratory Services: None Provider and Phone # Home O2: Baseline Liter Flow: BIPAP/CPAP: Nebulizer: Durable Medical Equipment: Cane available but does not use Discharge Plan Anticipated discharge plan: Pending clinical course Company Name(s) and Phone #: [employer] [facility] ([phone]) Anticipated discharge date: Pending clinical course Transportation [...] interest(s) are disclosed as appropriate. MADHAV VERDIN, COUNSELING PSYCHOLOGIST Inpatient President Finance Company Care Management Acute Care Surgery, Surgical Oncology, Colorectal Surgery, Thoracic, Vascular, Gynecology, Gynecology/Oncology, Breast, and Pulmonology Can be reached at [phone] or over [employer] Secure Chat * Lili Rodriguez RN - [...] Patient will remain free of falls Goal: [place] Fall Precautions Outcome: Progressing * Care Coordination - Monika Cheng - 11/08/2025 2:25 PM EST OSEAS sent pt [facility] note and d/c summary to [facility] fax [phone]. Monika Cheng Quilt Maker Charge Entry Care Management Services [phone] * Home Health Care Note - Zeferino Pyle MD - 11/08/2025 1:45 PM EST Images from the original note were not included. REFERRAL FOR HOME HEALTH SERVICES FORM Patient name: David Serrano Patient : 1960 Age: 65 y.o. Gender: male SSN: [id number] Address: [address] [place], [place] [address] Phone number: [phone] Patient emergency contact: Extended Emergency Contact Information Primary Emergency Contact: Stacy Serrano Address: [address] [place] [address] Mobile Relation: Spouse Date of admission: 11/02/2025 Date of discharge: 11/08/2025 Attending provider: Vani Winkler MD Primary care physician: Dr. Chris Medel MD Code status: Prior Allergies: Allergies[1] Insurance Information Insurance Information [employer] Phone: -- Subscriber: David Serrano Subscriber#: [id number] Group#: [id number] Precert#: -- Authorization#: [id number] Effective Date: -- Diagnoses Present on Admission Primary Diagnosis: <principal problem not specified> Discharge Diagnosis : There are no hospital problems to display for this patient. Prognosis: good Rehabilitation potential: good Diet Diet/Nutrition Orders Diet Regular(7) Frequency: Effective Now Number of Occurrences: Until Specified Order Questions: Suicide/Behavior Risk Modification? No Regular Diet Services Required Residential Physical Therapy: Occupational Therapy: Weight bearing status: [...] scale: Blood glucose 150-199 mg/dL =1units, Blood qbirsiv288-437 mg/dL =2 units, Blood glucose 250-299 mg/dL [...] Your Medications These medications were sent to [facility] [address] [place], [place] [id number] Hours: Wednesday - Wednesday: 8:00AM - 6:00PM atovaquone 750 mg/5 mL suspension Discharge Specific Orders Discharge specific orders: LAB DRAWS: Please collect CBC w/diff, renal function panel, hepatic function panel, and tacrolimus level (prior to morning dose of tacrolimus) every Wed/. Fax results to liver transplant clinic at [phone]. NURSE VISIT: Please check vitals and assess/monitor [...] 67 17 96 % Equipment/Supplies Ordering Physician: NPI [VANI WINKLER MD] Physician Certification Further, I certify that my clinical findings support that this patient is homebound (i.e. absences from home require considerable and taxing effort and are for medical reasons or mosque services or infrequently or short duration when for other reasons) due to extensive needs and high risk of infection it would be a taxing effort to receive outpatient services. My signature below is to certify that this patient is under my care and that I, or nurse practitioner, or a physician assistant corporation counsel working with me, had a [id number] encounter with this is patient on: 11/08/2025 Follow-up Appointments and Post Hospital Discharge Physician Name Future Appointments Date Time Provider Department Center 11/13/2025 8:20 AM [facility]ERY, [facility]OX 11/13/2025 11:30 AM [facility] 11/27/2025 8:00 AM LAISHA [place] [facility] No follow-up provider specified. Discharging Physician Signature and Credentials Discharging Physician: Electronically signed by ZEFERINO PYLE MD 11/08/2025, 1:42 PM Physician to follow up Information PCP: Dr. Chris Medel MD PCP address: [address] [place] [address] [place] [id number] PCP phone number: [phone] PCP fax number: [phone] Physicians to follow are liver transplant surgeons. For any questions, they and the liver transplant nurse coordinators may be contacted through the liver transplant clinic at [phone]. Fax results to [phone]. Shim Plug Cutter and Credentials Provider/Company Name and Contact Number: Community Services at Discharge Community Services at Home post discharge: Home Health [facility] Name/Phone # post discharge: [facility] [phone] Home Health Services Types at Discharge: PT/OT/CMM INSPECTOR, Residential [employer] C[employer] Name and Telephone Number: Maddie Jeter MADHAV, COUNSELING PSYCHOLOGIST [phone] [1] Allergies Allergen Reactions Lisinopril Other (See Comments) * Care Coordination - Citlaly Zimmerman RN - 11/07/2025 1:00 PM EST [facility] Case Management/Social Work Department Progress Note Patient [...] PCP: Dr. Chris Medel MD Home Pharmacy: [facility] - [place], [place] - [address] [place] [address] [facility] [address] [facility] [address] [facility] [address] Level [facility] [address] [facility] [address] [facility] [id number] Medical Insurance Coverage: Payor: NANCY / Plan: BLUE ACCESS / Product Type: PPO / Other Pertinent Information incinerator plant general supervisor met with interdisciplinary team for rounding/received report, and reviewed chart. Per team, patient is not medically ready for discharge. Report received from Transplant Team: Pt started on rejection treatment. Anticipate medical readiness over the weekend. Patient will be a resumption of care with [facility] ([phone]) [facility] able to resume care on 11/13. Teamgood with [facility] starting on 11/13. Discharge Plan Anticipated discharge plan: Home with [facility] Anticipated discharge date: 11/11/2025 CM/SW will continue to follow and remain available for discharge planning needs. CITLALY ZIMMERMAN RN/SAJAN * Plan of Care - Veronica Winter [...] Patient will remain free of falls Goal: [place] Fall Precautions Outcome: Progressing Problem: Daily Care [...] Patient will remain free of falls Goal: [place] Fall Precautions Outcome: Progressing Problem: Daily Care [...] Patient will remain free of falls Goal: [place] Fall Precautions Outcome: Progressing Problem: Daily Care Goal: Daily care needs are met Description: Assess and monitor ability to perform self care and identify potential discharge needs. Outcome: Progressing * Care Coordination - Citlaly Zimmerman RN - 11/06/2025 11:57 AM EST [facility] Case Management/Social Work Department Progress Note Patient [...] PCP: Dr. Chris Medel MD Home Pharmacy: [facility] - [place], [place] - [address] [facility] [address] [facility] [address] [facility] [address] [facility] [address] [facility] [address] [facility] [address] [facility] [address] [facility] [address] Level [facility] [address] [facility] [address] [facility] [id number] Medical Insurance Coverage: Payor: PREETIEM / Plan: BLUE ACCESS / Product Type: PPO / Other Pertinent Information RN/SAJAN received call from Carlton with [facility] ([phone]). Carlton reported [facility] if pt is discharged tomorrow will not be able to restart services until 11/13/2025. RN/SAJAN secured [facility] Transplant Team notifiy Team [facility] unable to restart services until 11/13 dueto staff constraints. UPDATE: incinerator plant general supervisor met with interdisciplinary team for rounding/received report, [...] Patient will remain free of falls Goal: [place] Fall Precautions Outcome: Progressing Problem: Daily Care [...] Fellow PGY4 * Care Coordination - Citlaly Zimmerman RN - 11/05/2025 12:40 PM EST [facility] Case Management/Social Work Department Progress Note Patient [...] PCP: Dr. Chris Medel MD Home Pharmacy: [facility] - [place], [place] - [address] [facility] [address] [facility] [address] [facility] [address] [facility] [address] [facility] [address] [facility] [address] [facility] [address] [facility] [address] [facility] [address] [facility] [address] [facility] [address] Medical Insurance Coverage: Payor: NANCY / Plan: BLUE ACCESS / Product Type: PPO / Other Pertinent Information incinerator plant general supervisor met with interdisciplinary team for rounding/received report, and reviewed chart. Per team, patient is not medically ready for discharge. Report received by Transplant Team: Liver Biopsy possible today, Hemology consulted, receiving 1 unit of blood today. Anticipate medical readiness Wednesday with resumption of HHC (SN for labs and PT/OT). Pt has [facility]([phone]) SN for labs and PT/OT. Resumption referral [...] Patient will remain free of falls Goal: [place] Fall Precautions Outcome: Progressing Problem: Daily Care [...] Patient will remain free of falls Goal: [place] Fall Precautions Outcome: Progressing Problem: Daily Care [...] Patient will remain free of falls Goal: [place] Fall Precautions Outcome: Progressing Problem: Daily Care [...] Patient will remain free of falls Goal: [place] Fall Precautions Outcome: Progressing Problem: Daily Care [...] 7:19 AM EST HEPATIC FUNCTION PANEL STAT 6:15 AM EST TACROLIMUS LEVEL Timed 11/08/2025 [...] 8:53 AM EST HEPATIC FUNCTION PANEL STAT 6:40 AM EST TACROLIMUS LEVEL Timed 11/07/2025 [...] 6:15 AM EST HEPATIC FUNCTION PANEL STAT 6:02 AM EST TACROLIMUS LEVEL Timed 11/06/2025 6:02 AM EST CBC STAT 11/06/2025 6:02 AM EST PHOSPHORUS STAT 11/06/2025 6:02 AM EST MAGNESIUM STAT 11/06/2025 6:02 AM EST LACTATE DEHYDROGENASE STAT 11/06/2025 6:02 AM EST HAPTOGLOBIN Routine 11/06/2025 6:02 AM EST BASIC METABOLIC PANEL STAT 11/06/2025 6:02 AM EST POC GLU MONITORING DEVICE Routine 11/05/2025 9:56 PM EST FRANSICO ANTI-COMPLEMENT Routine 11/05/2025 8 :22 PM EST FRANSICO ANTI-IGG Routine 11/05/2025 8:21 [...] LIVER BIOPSY Routine 11/05/2025 11:35 AM EST PREPARE RBC, LEUKOREDUCED Routine 11/05/2025 6:15 AM EST SLIDE REQUEST (MAKE SLIDE AND HOLD) Add-On 11/05/2025 6:10 AM EST HEPATIC FUNCTION PANEL STAT 6:10 AM EST TACROLIMUS LEVEL Timed 11/05/2025 [...] 5:18 AM EST HEPATIC FUNCTION PANEL STAT 3:39 AM EST CBC STAT 11/04/2025 3:39 [...] Routine 11/03/2025 11:47 AM EST US DUPLEX GAU-EMRQJK-[id number] COMPLETE STAT 11/03/2025 10:05 AM EST US ABDOMEN LIMITED STAT 11/03/2025 10 :05 AM EST HEPATIC FUNCTION PANEL STAT 6:46 AM EST TACROLIMUS LEVEL Timed 11/03/2025 6:46 AM EST CBC STAT 11/03/2025 6:46 AM EST PHOSPHORUS STAT 11/03/2025 6:46 AM EST MAGNESIUM STAT 11/03/2025 6:46 AM EST BASIC METABOLIC PANEL STAT 11/03/2025 6:46 AM EST TRANSFUSE RED BLOOD CELLS Routine 11/03/2025 6:37 AM EST POC GLU MONITORING DEVICE Routine 11/03/2025 5:45 AM EST ENTERIC PATHOGEN PANEL Routine 5:21 AM EST CLOSTRIDIUM DIFFICILE DNA AMPLIFICATION Routine 11/03/2025 5:21 AM EST HISTOPLASMA/BLASTOMYCE S AG, EIA, U Routine 11/03/2025 3:20 AM EST STREP PNEUMO-LEGIONELLA URINE ANTIGEN Routine 11/03/2025 2:51 AM EST UPPER RESPIRATORY VIRAL/BACTERIAL PANEL-TRANSITIONS MANAGER ONLY Routine 11/03/2025 2:51 AM EST URINALYSIS W/RFL TO MICROSCOPIC Routine 11/03/2025 2:51 AM EST TRANSFUSE RED BLOOD CELLS Routine 11/03/2025 2:[address] ABDOMEN AND PELVIS WITH IV CONTRAST STAT 11/03/2025 1:21 AM EST POC GLU MONITORING DEVICE Routine 11/03/2025 12:26 AM EST ABO/RH Routine 11/02/2025 11:44 PM EST ANTIBODY SCREEN Routine 11/02/2025 11:44 PM EST HISTOPLASMA/BLASTOMYCE S AG, EIA, S Routine 11/02/2025 9:13 PM EST BLOOD CULTURE-PERIPHERAL STAT 11/02/2025 9:13 PM EST FUNGITELL [id number] Routine 11/02/2025 9:08 PM EST CRYPTOCOCCUS ANTIGEN, SERUM Routine 11/02/2025 9:08 PM EST CYTOMEGALOVIRUS DNA, QUANT, RT PCR Routine 11/02/2025 9:08 PM EST HEPATIC FUNCTION PANEL STAT 9:08 PM EST RENAL FUNCTION PANEL W/EGFR STAT 11/02/2025 9:08 PM EST JOSE MIMS VIRUS DNA, QNT PCR, BLOOD Routine 11/02/2025 9:08 PM EST ADENOVIRUS, QUANTITATIVE PCR Routine 11/02/2025 9:08 PM EST ASPERGILLUS AG Routine 11/02/2025 9:08 PM EST BLOOD CULTURE-PERIPHERAL STAT 11/02/2025 9:08 PM EST CBC STAT 11/02/2025 9:08 PM EST AFB CULTURE, BLOOD Routine 11/02/2025 9: 08 PM EST FUNGUS CULTURE, BLOOD Routine 11/02/2025 9:08 PM EST MAGNESIUM STAT 11/02/2025 9:08 PM EST POC GLU MONITORING DEVICE Routine 11/02/2025 8:51 PM EST documented in this encounter Results * (ABNORMAL) POC Glucose Monitoring Device (11/08/2025 12:34 PM EST) POC Glucose Monitoring Device 304(H) 70 - 100 mg/dL 11/08/2025 12:35 PM EST [facility] Blood 11/08/2025 12:3 4 PM EST 11/08/2025 12:35 PM EST Vani Winkler MD POINT OF CARE TEST ORDERABLE S Final Result Performing Organization Address [facility] Co de Phone Number [facility] [address] [place] [address]. [address] * (ABNORMAL) POC Glucose Monitoring Device (11/08/2025 7:19 AM EST) POC Glucose Monitoring Device 143(H) 70 - 100 mg/dL 11/08/2025 7:20 AM EST [facility] Blood 11/08/2025 7:19 AM EST 11/08/2025 7:20 AM EST Vani Winkler MD POINT OF CARE TEST ORDERABLE S Final Result Performing Organization Address [facility] de Phone Number [facility] [address] [place] [address]. [address] * (ABNORMAL) Haptoglobin (11/08/2025 6:15 AM EST) Haptoglobin <30(L) 44 - 215 mg/dL 11/08/2025 8:18 AM EST [facility] Serum 11/08/2025 6:15 AM EST 11/08/2025 6:21 AM EST Keith Novak MD LAB BLOOD ORDERABLES Fi nal Result Performing Organization Address [facility] Co de Phone Number [facility] [address] [place] [address]. [address] * (ABNORMAL) Lactate Dehydrogenase (11/08/2025 6:15 AM EST) LD 344(H) 110 - 270 U/L 11/08/2025 6:56 AM EST [facility] Plasma 11/08/2025 6:15 AM EST 11/08/2025 6:20 AM EST Keith Novak MD LAB BLOOD ORDERABLES Fi nal Result Performing Organization Address City/[facility]/ZIP Co de Phone Number [facility] [address] [facility]. [address] * Tacrolimus level (11/08/2025 6:15 AM EST) Tacrolimus (LC-MS) 10.1 3.0 - 15.0 ng/mL 11/08/2025 11:07 AM EST [facility] Comment:Performed via liquid chromatography tandem mass spectrometry. Detection limit: 1 ng/mL. Individual target concentrations may vary due to target organ and time after transplant. This test has been developed and its performance characteristics determined by [facility] which is certified under the [...] ORDERABLES Final Resul t Performing Organization Address [facility] Co de Phone Number [facility] [address] [place] [address]. [address] * Phosphorus (11/08/2025 6:15 AM EST) Phosphorus 3.5 2.1 - 4.7 mg/dL 11/08/2025 6:56 AM EST [facility] Plasma 11/08/2025 6:15 AM EST 11/08/2025 6:20 AM EST Aspen Parr MD LAB BLOOD ORDERABLES Final Resul t Performing Organization Address City/[facility] Co de Phone Number [facility] [address] [place], [place] [address]ev[facility], [facility]. [address] * Magnesium (11/08/2025 6:15 AM EST) Magnesium 1.6 1.5 - 2.5 mg/dL 11/08/2025 6:56 AM EST [facility] Plasma 11/08/2025 6:15 AM EST 11/08/2025 6:20 AM EST us Aspen Parr MD LAB BLOOD ORDERABLES Final Resul t [facility] [address] * (ABNORMAL) CBC (11/08/2025 6:15 AM EST) WBC 10.0 3.8 - 10.8 10E3/uL 11/08/2025 6:27 AM EST [facility] RBC 2.48(L) 4.20 - 5.80 10E6/uL 11/08/2025 6:27 AM EST [facility] Hemoglobin 8.5(L) 13.2 - 17.1 g/dL 11/08/2025 6:27 AM EST [facility] Hematocrit 24.1(L) 38.5 - 50.0 % 11/08/2025 6:27 AM EST [facility] MCV 97.2 80.0 - 100.0 fL 11/08/2025 6:27 AM EST [facility] MCH 34.4(H) 27.0 - 33.0 pg 11/08/2025 6:27 AM EST [facility] MCHC 35.4 32.0 - 36.0 g/dL 11/08/2025 6:27 AM EST [facility] RDW 24.0(H) 11.0 - 15.0 % 11/08/2025 6:27 AM EST [facility] Platelets 153 140 - 400 10E3/uL 11/08/2025 6:27 AM EST [facility] MPV 8.0 7.5 - 11.5 fL 11/08/2025 6:27 AM EST [facility] Whole Blood 11/08/2025 6:15 AM EST 11/08/2025 6:21 AM EST us Aspen Parr MD LAB BLOOD ORDERABLES Final Resul t [facility] [address] * (ABNORMAL) Basic metabolic panel (11/08/2025 6:15 AM EST) Sodium 136 133 - 146 mmol/L 11/08/2025 6:56 AM EST [facility] Potassium 3.9 3.5 - 5.3 mmol/L 11/08/2025 6:56 AM [facility] Chloride 105 98 - 110 mmol/L 11/08/2025 6:56 AM [facility] CO2 22 21 - 33 mmol/L 11/08/2025 6:56 AM [facility] Comment:High lactate dehydro genase concentrations in patient samples may cause falsely increased bicarbonate results. If markedly elevated LDH is observed or suspected, please assess results in conjunction with patient`s clinical presentation. In cases of discrepant results, consider evaluating CO2 in with a blood gas order. Anion Gap 9 3 - 16 mmol/L 11/08/2025 6:56 AM EST [facility] BUN 21 7 - 25 mg/dL 11/08/2025 6:56 AM [facility] Creatinine 1.03 0.60 - 1.30 mg/dL 11/08/2025 6:56 AM [facility] Glucose 143(H) 70 - 100 mg/dL 11/08/2025 6:56 AM [facility] Calcium 7.9(L) 8.6 - 10.3 mg/dL 11/08/2025 6:56 AM [facility] Osmolality, Calculated 287 278 - 305 mOsm/kg 11/08/2025 6:56 AM [facility] EGFR 81 11/08/2025 6:56 AM [facility] Comment:As of 2022, the estimated [...] ORDERABLES Final Resul t Performing Organization Address [facility] Co de Phone Number [facility] [address] [facility]. [address] * (ABNORMAL) Hepatic Function Panel (11/08/2025 6:15 AM EST) Total Bilirubin 5.0(H) 0.0 - 1.5 mg/dL 11/08/2025 6:56 AM EST [facility] Bilirubin, Direct 2.51(H) 0.00 - 0.40 mg/dL 11/08/2025 6:56 AM EST [facility] AST 26 13 - 39 U/L 11/08/2025 6:56 AM EST [facility] ALT 54(H) 7 - 52 U/L 11/08/2025 6:56 AM EST [facility] Alkaline Phosphatase 364(H) 36 - 125 U/L 11/08/2025 6:56 AM EST [facility] Total Protein 5.6(L) 6.4 - 8.9 g/dL 11/08/2025 6:56 AM EST [facility] Albumin 3.0(L) 3.5 - 5.7 g/dL 11/08/2025 6:56 AM EST [facility] Bilirubin, Indirect 2.49(H) 0.00 - 1.10 mg/dL 11/08/2025 6:56 AM EST [facility] Plasma 11/08/2025 6:15 AM EST 11/08/2025 6:20 AM EST us Aspen Parr MD LAB BLOOD ORDERABLES Final Resul t Performing Organization Address City/[facility]/ZIP Co de Phone Number [facility] [address] [facility]. [address] * (ABNORMAL) POC Glucose Monitoring Device (11/07/2025 9:04 PM EST) POC Glucose Monitoring Device 253(H) 70 - 100 mg/dL 11/07/2025 9:05 PM EST [facility] Blood 11/07/2025 9:04 PM EST 11/07/2025 9:05 PM EST Vani Winkler MD POINT OF CARE TEST ORDERABLE S Final Result [facility] [address] [facility]. [address] * (ABNORMAL) POC Glucose Monitoring Device (11/07/2025 5:56 PM EST) POC Glucose Monitoring Device 216(H) 70 - 100 mg/dL 11/07/2025 5:57 PM EST [facility] Blood 11/07/2025 5:56 PM EST 11/07/2025 5:57 PM EST Vani Winkler MD POINT OF CARE TEST ORDERABLE S Final Result Performing Organization Address City/[facility] Co de Phone Number [facility] [address] [facility]. [address] * (ABNORMAL) POC Glucose Monitoring Device (11/07/2025 2:13 PM EST) POC Glucose Monitoring Device 250(H) 70 - 100 mg/dL 11/07/2025 2:14 PM EST [facility] Blood 11/07/2025 2:13 PM EST 11/07/2025 2:14 PM EST Vani Winkler MD POINT OF CARE TEST ORDERABLE S Final Result Performing Organization Address City/[facility]/ZIP Co de Phone Number [facility] [address] [facility]. [address] * (ABNORMAL) POC Glucose Monitoring Device (11/07/2025 8:53 AM EST) POC Glucose Monitoring Device 188(H) 70 - 100 mg/dL 11/07/2025 8:54 AM EST [facility] Blood 11/07/2025 8:53 AM EST 11/07/2025 8:54 AM EST Vani Winkler MD POINT OF CARE TEST ORDERABLE S Final Result [facility] [address] [place] [address]. [address] * IgG (11/07/2025 6:40 AM EST) IgG 993.0 600.0 - 1,560.0 mg/dL 11/09/2025 11:39 AM EST [facility] Comment:Please interpret the se findings in conjunction with clinical findings, protein electrophoresis, and immunotyping/immunofixation results. Serum 11/07/2025 6:40 AM EST 11/07/2025 3:26 PM EST us Vani Winkler MD LAB BLOOD ORDERABLES Final R esult [facility] [address] [facility]. [address] * (ABNORMAL) Haptoglobin (11/07/2025 6:40 AM EST) Haptoglobin <30(L) 44 - 215 mg/dL 11/07/2025 7:36 AM EST [facility] Serum 11/07/2025 6:40 AM EST 11/07/2025 7:02 AM EST us Keith Novak MD LAB BLOOD ORDERABLES Fi nal Result [facility] [address] [facility]. [address] * (ABNORMAL) Lactate Dehydrogenase (11/07/2025 6:40 AM EST) LD 334(H) 110 - 270 U/L 11/07/2025 7:30 AM EST [facility] Plasma 11/07/2025 6:40 AM EST 11/07/2025 6:59 AM EST Keith Novak MD LAB BLOOD ORDERABLES Fi nal Result Performing Organization Address [facility] Co de Phone Number [facility] [address] [place] [address] * Tacrolimus level (11/07/2025 6:40 AM EST) Tacrolimus (LC-MS) 8.9 3.0 - 15.0 ng/mL 11/07/2025 10:26 AM EST [facility] Comment:Performed via liquid chromatography tandem mass spectrometry. Detection limit: 1 ng/mL. Individual target concentrations may vary due to target organ and time after transplant. This test has been developed and its performance characteristics determined by [facility] which is certified under the [...] ORDERABLES Final Resul t Performing Organization Address [facility] de Phone Number [facility] [address] * Phosphorus (11/07/2025 6:40 AM EST) Phosphorus 2.9 2.1 - 4.7 mg/dL 11/07/2025 7:31 AM EST [facility] Plasma 11/07/2025 6:40 AM EST 11/07/2025 6:59 AM EST Aspen Parr MD LAB BLOOD ORDERABLES Final Resul t [facility] [address] * Magnesium (11/07/2025 6:40 AM EST) Magnesium 1.9 1.5 - 2.5 mg/dL 11/07/2025 7:31 AM EST [facility] Plasma 11/07/2025 6:40 AM EST 11/07/2025 6:59 AM EST us Aspen Parr MD LAB BLOOD ORDERABLES Final Resul t [facility] [address] * (ABNORMAL) CBC (11/07/2025 6:40 AM EST) WBC 12.0(H) 3.8 - 10.8 10E3/uL 11/07/2025 7:06 AM [facility] RBC 2.33(L) 4.20 - 5.80 10E6/uL 11/07/2025 7:06 AM [facility] Hemoglobin 8.0(L) 13.2 - 17.1 g/dL 11/07/2025 7:06 AM [facility] Hematocrit 22.4(L) 38.5 - 50.0 % 11/07/2025 7:06 AM [facility] MCV 96.5 80.0 - 100.0 fL 11/07/2025 7:06 AM [facility] MCH 34.4(H) 27.0 - 33.0 pg 11/07/2025 7:06 AM [facility] MCHC 35.7 32.0 - 36.0 g/dL 11/07/2025 7:06 AM EST [facility] RDW 19.9(H) 11.0 - 15.0 % 11/07/2025 7:06 AM [facility] Platelets 145 140 - 400 10E3/uL 11/07/2025 7:06 AM [facility] MPV 8.3 7.5 - 11.5 fL 11/07/2025 7:06 AM [facility] Whole Blood 11/07/2025 6:40 AM EST 11/07/2025 7:00 AM EST us Aspen Parr MD LAB BLOOD ORDERABLES Final Resul t Performing Organization Address [facility] de Phone Number [facility] [address] * (ABNORMAL) Hepatic Function Panel (11/07/2025 6:40 AM EST) Total Bilirubin 6.4(H) 0.0 - 1.5 mg/dL 11/07/2025 7:31 AM EST [facility] Bilirubin, Direct 3.39(H) 0.00 - 0.40 mg/dL 11/07/2025 7:31 AM EST [facility] AST 27 13 - 39 U/L 11/07/2025 7:31 AM EST [facility] ALT 63(H) 7 - 52 U/L 11/07/2025 7:31 AM EST [facility] Alkaline Phosphatase 370(H) 36 - 125 U/L 11/07/2025 7:31 AM EST [facility] Total Protein 5.2(L) 6.4 - 8.9 g/dL 11/07/2025 7:31 AM EST [facility] Albumin 2.8(L) 3.5 - 5.7 g/dL 11/07/2025 7:31 AM EST [facility] Bilirubin, Indirect 3.01(H) 0.00 - 1.10 mg/dL 11/07/2025 7:31 AM EST [facility] Plasma 11/07/2025 6:40 AM EST 11/07/2025 6:59 AM EST us Aspen Parr MD LAB BLOOD ORDERABLES Final Resul t Performing Organization Address [facility] Co de Phone Number [facility] [address] * (ABNORMAL) Basic metabolic panel (11/07/2025 6:40 AM EST) Sodium 135 133 - 146 mmol/L 11/07/2025 7:31 AM EST [facility] Potassium 4.2 3.5 - 5.3 mmol/L 11/07/2025 7:31 AM [facility] Chloride 104 98 - 110 mmol/L 11/07/2025 7:31 AM [facility] CO2 24 21 - 33 mmol/L 11/07/2025 7:31 AM [facility] Comment:High lactate dehydro genase concentrations in patient samples may cause falsely increased bicarbonate results. If markedly elevated LDH is observed or suspected, please assess results in conjunction with patient`s clinical presentation. In cases of discrepant results, consider evaluating CO2 in with a blood gas order. Anion Gap 7 3 - 16 mmol/L 11/07/2025 7:31 AM [facility] BUN 22 7 - 25 mg/dL 11/07/2025 7:31 AM [facility] Creatinine 0.97 0.60 - 1.30 mg/dL 11/07/2025 7:31 AM [facility] Glucose 201(H) 70 - 100 mg/dL 11/07/2025 7:31 AM [facility] Calcium 7.5(L) 8.6 - 10.3 mg/dL 11/07/2025 7:31 AM [facility] Osmolality, Calculated 289 278 - 305 mOsm/kg 11/07/2025 7:31 AM [facility] EGFR 87 11/07/2025 7:31 AM [facility] Comment:As of 2022, the estimated [...] ORDERABLES Final Resul t Performing Organization Address [facility] Co de Phone Number [facility] [address] [facility]. [address] * (ABNORMAL) POC Glucose Monitoring Device (11/06/2025 9:36 PM EST) POC Glucose Monitoring Device 273(H) 70 - 100 mg/dL 11/06/2025 9:36 PM EST [facility] Blood 11/06/2025 9:36 PM EST 11/06/2025 9:36 PM EST Vani Winkler MD POINT OF CARE TEST ORDERABLE S Final Result Performing Organization Address [facility] Co de Phone Number [facility] [address] [facility]. [address] * (ABNORMAL) POC Glucose Monitoring Device (11/06/2025 6:34 PM EST) POC Glucose Monitoring Device 347(H) 70 - 100 mg/dL 11/06/2025 8:59 PM EST [facility] Blood 11/06/2025 6:34 PM EST 11/06/2025 8:59 PM EST Vani Winkler MD POINT OF CARE TEST ORDERABLE S Final Result Performing Organization Address [facility] Co de Phone Number [facility] [address] [facility]. [address] * (ABNORMAL) CBC, STAT (11/06/2025 5:50 PM EST) WBC 10.1 3.8 - 10.8 10E3/uL 11/06/2025 6:43 PM EST [facility] RBC 2.40(L) 4.20 - 5.80 10E6/uL 11/06/2025 6:43 PM EST [facility] Hemoglobin 8.1(L) 13.2 - 17.1 g/dL 11/06/2025 6:43 PM EST [facility] Hematocrit 22.5(L) 38.5 - 50.0 % 11/06/2025 6:43 PM EST [facility] MCV 93.9 80.0 - 100.0 fL 11/06/2025 6:43 PM EST [facility] MCH 33.7(H) 27.0 - 33.0 pg 11/06/2025 6:43 PM EST [facility] MCHC 35.9 32.0 - 36.0 g/dL 11/06/2025 6:43 PM EST [facility] RDW 18.8(H) 11.0 - 15.0 % 11/06/2025 6:43 PM EST [facility] Platelets 146 140 - 400 10E3/uL 11/06/2025 6:43 PM EST [facility] Comment: _Platelet Morphology Normal _Platelets Appear Adequate MPV 8.5 7.5 - 11.5 fL 11/06/2025 6:43 PM EST [facility] Whole Blood 11/06/2025 5:50 PM EST 11/06/2025 5:58 PM EST Kassi INTERIANO LAB BLOOD ORDERABLES Final Re sult [facility] [address] * (ABNORMAL) POC Glucose Monitoring Device (11/06/2025 11:11 AM EST) POC Glucose Monitoring Device 303(H) 70 - 100 mg/dL 11/06/2025 11:12 AM EST [facility] Blood 11/06/2025 11:1 1 AM EST 11/06/2025 11:12 AM EST Vani Winkler MD POINT OF CARE TEST ORDERABLE S Final Result [facility] [address] * (ABNORMAL) POC Glucose Monitoring Device (11/06/2025 7:25 AM EST) POC Glucose Monitoring Device 320(H) 70 - 100 mg/dL 11/06/2025 7:25 AM EST [facility] Blood 11/06/2025 7:25 AM EST 11/06/2025 7:25 AM EST us Vani Winkler MD POINT OF CARE TEST ORDERABLE S Final Result [facility] [address] * Prepare RBC, leukoreduced, 1 Units (11/06/2025 6:15 AM EST) Product Code X5224P41 [facility] Unit Number [id number] [facility] Dispense Status Released from Crossmatch_RE [facility] Blood Expiration Date [facility] Coding System [id number] [facility] Product Code C2793P01 [facility] Unit Number [id number] [facility] Dispense Status Presumed Transfused_PT [facility] Blood Expiration Date [facility] Coding System [id number] [facility] Product Code S4485W49 [facility] Unit Number [id number] [facility] Dispense Status Released from Crossmatch_RE [facility] Blood Expiration Date [facility] Coding System OVTH580 [facility] Blood Bank Product us Sherrie INTERIANO BLOOD BANK PRODUCT ORDERABLES Fi nal Result [facility] * (ABNORMAL) Haptoglobin (11/06/2025 6:02 AM EST) Haptoglobin <30(L) 44 - 215 mg/dL 11/06/2025 7:00 AM EST [facility] Serum 11/06/2025 6:02 AM EST 11/06/2025 6:27 AM EST us Keith Novak MD LAB BLOOD ORDERABLES Fi nal Result [facility] [address] * (ABNORMAL) Lactate Dehydrogenase (11/06/2025 6:02 AM EST) LD 400(H) 110 - 270 U/L 11/06/2025 6:48 AM EST [facility] Plasma 11/06/2025 6:02 AM EST 11/06/2025 6:19 AM EST Keith Novak MD LAB BLOOD ORDERABLES Fi nal Result [facility] [address] * Tacrolimus level (11/06/2025 6:02 AM EST) Pathologist [facility] Tacrolimus (LC-MS) 11.2 3.0 - 15.0 ng/mL 11/06/2025 10:50 AM EST [facility] Comment:Performed via liquid chromatography tandem mass spectrometry. Detection limit: 1 ng/mL. Individual target concentrations may vary due to target organ and time after transplant. This test has been developed and its performance characteristics determined by [facility] which is certified under the [...] MD LAB BLOOD ORDERABLES Final Resul t [facility] [address] [facility]. [address] * Phosphorus (11/06/2025 6:02 AM EST) Phosphorus 2.9 2.1 - 4.7 mg/dL 11/06/2025 7:11 AM EST [facility] Plasma 11/06/2025 6:02 AM EST 11/06/2025 6:27 AM EST us Aspen Parr MD LAB BLOOD ORDERABLES Final Resul t [facility] [address] [facility]. [address] * Magnesium (11/06/2025 6:02 AM EST) Magnesium 1.9 1.5 - 2.5 mg/dL 11/06/2025 7:11 AM EST [facility] Plasma 11/06/2025 6:02 AM EST 11/06/2025 6:27 AM EST us Aspen Parr MD LAB BLOOD ORDERABLES Final Resul t Performing Organization Address City/[facility]/ZIP Co de Phone Number [facility] [address] [facility]. [address] * (ABNORMAL) CBC (11/06/2025 6:02 AM EST) WBC 8.7 3.8 - 10.8 10E3/uL 11/06/2025 7:02 AM EST [facility] RBC 2.51(L) 4.20 - 5.80 10E6/uL 11/06/2025 7:02 AM EST [facility] Hemoglobin 8.3(L) 13.2 - 17.1 g/dL 11/06/2025 7:02 AM EST [facility] Hematocrit 23.4(L) 38.5 - 50.0 % 11/06/2025 7:02 AM EST [facility] MCV 93.4 80.0 - 100.0 fL 11/06/2025 7:02 AM EST [facility] MCH 33.3(H) 27.0 - 33.0 pg 11/06/2025 7:02 AM EST [facility] MCHC 35.7 32.0 - 36.0 g/dL 11/06/2025 7:02 AM EST [facility] RDW 18.3(H) 11.0 - 15.0 % 11/06/2025 7:02 AM EST [facility] Platelets 156 140 - 400 10E3/uL 11/06/2025 7:02 AM EST [facility] Platelet Estimate ADEQ 11/06/2025 7:02 AM EST [facility] MPV 8.3 7.5 - 11.5 fL 11/06/2025 7:02 AM EST [facility] Whole Blood 11/06/2025 6:02 AM EST 11/06/2025 6:19 AM EST Narrative [facility] - 11/06/2025 7:02 AM EST Peripheral blood smear was scanned per review criteria approved by the laboratory senior medical transcriptionist. us Aspen Parr MD LAB BLOOD ORDERABLES Final Resul t [facility] [id number] [facility]. [place] [id number], [facility] * (ABNORMAL) Basic metabolic panel (11/06/2025 6:02 AM EST) Sodium 132(L) 133 - 146 mmol/L 11/06/2025 6:59 AM EST [facility] Potassium 4.6 3.5 - 5.3 mmol/L 11/06/2025 6:59 AM [facility] Chloride 103 98 - 110 mmol/L 11/06/2025 6:59 AM [facility] CO2 21 21 - 33 mmol/L 11/06/2025 6:59 AM [facility] Comment:High lactate dehydro genase concentrations in patient samples may cause falsely increased bicarbonate results. If markedly elevated LDH is observed or suspected, please assess results in conjunction with patient`s clinical presentation. In cases of discrepant results, consider evaluating CO2 in with a blood gas order. Anion Gap 8 3 - 16 mmol/L 11/06/2025 6:59 AM EST [facility] BUN 21 7 - 25 mg/dL 11/06/2025 6:59 AM EST [facility] Creatinine 0.97 0.60 - 1.30 mg/dL 11/06/2025 6:59 AM [facility] Glucose 307(H) 70 - 100 mg/dL 11/06/2025 6:59 AM [facility] Calcium 7.2(L) 8.6 - 10.3 mg/dL 11/06/2025 6:59 AM EST [facility] Osmolality, Calculated 289 278 - 305 mOsm/kg 11/06/2025 6:59 AM EST [facility] EGFR 87 11/06/2025 6:59 AM EST [facility] Comment:As of 2022, the estimated [...] MD LAB BLOOD ORDERABLES Final Resul t [facility] [address] [id number], [facility] * (ABNORMAL) Hepatic Function Panel (11/06/2025 6:02 AM EST) Total Bilirubin 17.0(H) 0.0 - 1.5 mg/dL 11/06/2025 7:11 AM EST [facility] Bilirubin, Direct 9.93(H) 0.00 - 0.40 mg/dL 11/06/2025 7:11 AM EST [facility] AST 66(H) 13 - 39 U/L 11/06/2025 7:11 AM EST [facility] ALT 78(H) 7 - 52 U/L 11/06/2025 7:11 AM EST [facility] Alkaline Phosphatase 445(H) 36 - 125 U/L 11/06/2025 7:11 AM EST [facility] Total Protein 5.2(L) 6.4 - 8.9 g/dL 11/06/2025 7:11 AM EST [facility] Albumin 2.8(L) 3.5 - 5.7 g/dL 11/06/2025 7:11 AM EST [facility] Bilirubin, Indirect 7.07(H) 0.00 - 1.10 mg/dL 11/06/2025 7:11 AM EST [facility] Plasma 11/06/2025 6:02 AM EST 11/06/2025 6:27 AM EST Aspen Parr MD LAB BLOOD ORDERABLES Final Resul t Performing Organization Address City/[facility]/ZIP Co de Phone Number [facility] [address] [facility]. [address] * (ABNORMAL) POC Glucose Monitoring Device (11/05/2025 9:56 PM EST) POC Glucose Monitoring Device 228(H) 70 - 100 mg/dL 11/05/2025 9:58 PM EST [facility] Blood 11/05/2025 9:56 PM EST 11/05/2025 9:57 PM EST Vani Winkler MD POINT OF CARE TEST ORDERABLE S Final Result Performing Organization Address [facility]/ZIP Co de Phone Number [facility] [address] * FRANSICO Anti-Complement (11/05/2025 8:22 PM EST) FRANSICO Anti-complemen t 1 Negative 11/05/2025 8:22 PM EST [facility] Blood 11/05/2025 8:22 PM EST 11/05/2025 8:22 PM EST us Sherrie INTERIANO BLOOD BANK TEST ORDERABLES Final Result Performing Organization Address City/[facility]/ZIP Co de Phone Number [facility] [address] * FRANSICO Anti-IgG (11/05/2025 8:21 PM EST) [facility] FRANSICO IgG Negative 11/05/2025 8:21 PM EST [facility] Blood 11/05/2025 8:21 PM EST 11/05/2025 8:21 PM EST Sherrie INTERIANO BLOOD BANK TEST ORDERABLES Final Result Performing Organization Address City/[facility]/ZIP Co de Phone Number [facility] [address] [facility]. [address] * Parvovirus B19 Quant PCR (11/05/2025 6:49 PM EST) [facility] Parvovirus B19 Quant PCR Negative Negative copies/mL 11/09/2025 9:34 PM EST [facility] Comment: No Parvovirus B19 DNA detected. The quantitative range of this assay is 500 to 10 million copies/mL. This test was developed and its performance characteristics determined by [email or web address]. It has not been cleared or approved by the Food and Drug Administration. The FDA has determined that such clearance or approval is not necessary. [employer] Parvo Qn PCR UPTCAL [id number] L 11/09/2025 9:34 PM EST [facility] Comment: Unable to calculate result since non-numeric result obtained for component test. Plasma Frozen 11/05/2025 6:4 9 PM EST 11/09/2025 10:06 PM EST Narrative [facility] - 11/09/2025 10:06 PM EST PERFORMED AT: [address] [id number] DEVELOPER AUTOMATIC: Kevin Holguin MD PHONE: [phone] Sherrie INTERIANO LAB BLOOD ORDERABLES Final Resul t [facility] [address] [facility]. [address] * (ABNORMAL) Hemoglobin Free, Plasma (11/05/2025 6:49 PM EST) [facility] Hgb, Plasma 80(H) 30 - 40 mg/dL 11/05/2025 7:46 PM EST [facility] Plasma 11/05/2025 6:49 PM EST 11/05/2025 6:55 PM EST Sherrie Stevensl PA LAB BLOOD ORDERABLES Final Resul t Performing Organization Address [facility]/ZIP Co de Phone Number [facility] [address] [facility]. [address] * (ABNORMAL) Parvovirus B19 Antibody, IgG And IgM (11/05/2025 6:49 PM EST) Parvovirus B19 IgG 6.4(H) 0.0 - 0.8 index 11/09/2025 12:54 PM EST [facility] Comment: Negative <0.9 Equivocal 0.9 - 1.1 Positive >1.1 Parvovirus B19 IgM 0.2 0.0 - 0.8 index 11/09/2025 12:54 PM EST [facility] Comment: Negative <0.9 Equivocal 0.9 - 1.1 Positive >1.1 Serum 11/05/2025 6:49 PM EST 11/09/2025 1:07 PM EST Narrative [facility] - 11/09/2025 1:07 PM EST PERFORMED AT: [address] [id number] DEVELOPER AUTOMATIC: Kevin Holguin MD PHONE: [phone] SherrieHBCStel PA LAB BLOOD ORDERABLES Final Resul t Performing Organization Address City/[facility]/ZIP Co de Phone Number [facility] [address] * (ABNORMAL) CBC, STAT (11/05/2025 6:49 PM EST) WBC 9.3 3.8 - 10.8 10E3/uL 11/05/2025 7:08 PM EST [facility] RBC 2.59(L) 4.20 - 5.80 10E6/uL 11/05/2025 7:08 PM EST [facility] Hemoglobin 8.4(L) 13.2 - 17.1 g/dL 11/05/2025 7:08 PM EST [facility] Hematocrit 24.2(L) 38.5 - 50.0 % 11/05/2025 7:08 PM EST [facility] MCV 93.2 80.0 - 100.0 fL 11/05/2025 7:08 PM EST [facility] MCH 32.3 27.0 - 33.0 pg 11/05/2025 7:08 PM EST [facility] MCHC 34.7 32.0 - 36.0 g/dL 11/05/2025 7:08 PM EST [facility] RDW 18.2(H) 11.0 - 15.0 % 11/05/2025 7:08 PM EST [facility] Platelets 169 140 - 400 10E3/uL 11/05/2025 7:08 PM [facility] MPV 7.6 7.5 - 11.5 fL 11/05/2025 7:08 PM EST [facility] Whole Blood 11/05/2025 6:49 PM EST 11/05/2025 6:55 PM EST [employer] LAB BLOOD ORDERABLES Final Resul t Performing Organization Address City/[facility]/ZIP Co de Phone Number [facility] [address] [place] [address] * Direct Antiglobulin Test (11/05/2025 6:49 PM EST) FRANSICO Positive 11/05/2025 7:37 PM EST [facility] Blood 11/05/2025 6:49 PM EST 11/05/2025 6:58 PM EST [employer] BLOOD BANK TEST ORDERABLES Final Result Performing Organization Address City/[facility]/ZIP Co de Phone Number [facility] [address] * (ABNORMAL) Reticulocyte Count, Auto (11/05/2025 6:49 PM EST) Retic Ct Pct 11.66(H) 0.50 - 2.00 % 11/05/2025 7:08 PM EST [facility] Retic Ct Abs 301,994(H) 25,000 - 90,000 /uL 11/05/2025 7:08 PM EST [facility] Immature Retic Fract 0.70(H) 0.09 - 0.56 11/05/2025 7:08 PM EST [facility] Whole Blood 11/05/2025 6:49 PM EST 11/05/2025 6:55 PM EST Sherrie INTERIANO LAB BLOOD ORDERABLES Final Resul t Performing Organization Address City/[facility]/ZIP Co de Phone Number [facility] [address] [facility]. [address] * Transfuse RBC Transfusion Rate: Per dept routine (11/05/2025 5:49 PM EST) Sherrie INTERIANO NURSING TREATMENT ORDERABLES - B LOOD ADMIN Final Result Performing Organization Address City/[facility] Co de Phone Number EXTERNAL * Transfuse RBC Transfusion Rate: Per dept routine, 1 Units (11/05/2025 5:49 PM EST) Sherrie INTERIANO NURSING TREATMENT ORDERABLES - B LOOD ADMIN Final Result Performing Organization Address City/[facility] Co de Phone Number EXTERNAL * (ABNORMAL) POC Glucose Monitoring Device (11/05/2025 2:10 PM EST) POC Glucose Monitoring Device 225(H) 70 - 100 mg/dL 11/05/2025 2:10 PM EST [facility] Blood 11/05/2025 2:10 PM EST 11/05/2025 2:10 PM EST Vani Winkler MD POINT OF CARE TEST ORDERABLE S Final Result Performing Organization Address [facility] Co de Phone Number [facility] [address] * LIVER BIOPSY (11/05/2025 11:35 AM EST) 11/05/2025 11:3 5 AM EST Narrative [facility] - 11/05/2025 2:47 PM EST [id number] Procedure Date: 11/05/2025 11:35 AM Patient Name: David Serrano Date of : 1960 Admit Type: Inpatient Age: 65 Gender: Male Note Status: Finalized Attending MD: Nigel Reaves MD, [id number] Procedure: Liver biopsy Indications: Abnormal Liver enzymes [...] by the physician, the nurse and the sugarcane research technician in the procedure room. Mental Status [...] gauge in diameter was made with the BioPince gun using ultrasound to jamie the site. [...] referring physician. Procedure Code(s): --- Professional --- 37993, GC, Biopsy of liver, needle; percutaneous 63979, GC, Ultrasonic guidance for needle placement (eg, biopsy, aspiration, injection, localization device), imaging supervision and interpretation 80946, GC, Moderate sedation services provided by the same physician or other qualified health healthcare recruiter performing the diagnostic or therapeutic service that the sedation supports, requiring the presence of an independent trained observer to assist in the monitoring of the patient's level of consciousness and physiological status; initial 15 minutes of intraservice time, patient age 5 years or older Diagnosis Code(s): --- Professional --- R74.9, Abnormal serum enzyme level, unspecified CPT copyright 2022 [employer]. All rights reserved. The codes documented in this report are preliminary and upon hydrogenation operator review may be revised to meet current compliance requirements. Attending Participation: I was present and participated during the entire procedure, including non-carcamo portions. Nigel Reaves MD Nigel Reaves MD 11/05/2025 2:47:17 PM This report has been signed electronically.MD Sherley Ross MD Pedro Pinzon MD 11/05/2025 11:40:[address] [place] [address], [facility] us Vani Winkler MD PROCEDURE/MINOR SURGICAL ORD ERABLES Final Result Performing Organization Address [facility] de Phone Number [facility] * Prepare RBC, leukoreduced (11/05/2025 6:15 AM EST) Product Code D8963U58 [facility] Unit Number [id number] [facility] Dispense Status Presumed Transfused_PT [facility] Blood Expiration Date [id number] [facility] Coding System [id number] [facility] Product Code G8610S15 [facility] Unit Number [id number] [facility]LL Dispense Status Presumed Transfused_PT [facility] Blood Expiration Date [id number] HCLL Coding System [id number] HCLL us Attending Provider Unknown BLOOD BANK PRODUCT OR DERABLES Final Result Performing Organization Address City/[facility]/ZIP Co de Phone Number [facility] * (ABNORMAL) Differential (11/05/2025 6:10 AM EST) Myelocytes Relative 7.0(H) 0.0 - 0.0 % 11/05/2025 7:55 AM [facility] Metamyelocytes Relative 2.0(H) 0.0 - 0.0 % 11/05/2025 7:55 AM [facility] Neutrophils Relative 71.0 40.0 - 80.0 % 11/05/2025 7:55 AM [facility] Lymphocytes Relative 10.0(L) 15.0 - 45.0 % 11/05/2025 7:55 AM [facility] Monocytes Relative 5.0 0.0 - 12.0 % 11/05/2025 7:55 AM [facility] Eosinophils Relative 4.0 0.0 - 8.0 % 11/05/2025 7:55 AM [facility] Basophils Relative 1.0 0.0 - 1.0 % 11/05/2025 7:55 AM [facility] Neutrophils Absolute 9,301(H) 1,520 - 8,640 /uL 11/05/2025 7:55 AM [facility] nRBC 10(H) 0 - 0 /100 WBC 11/05/2025 7:55 AM [facility] Metamyelocytes Absolute 262(H) 0 - 0 /uL 11/05/2025 7:55 AM [facility] Myelocytes Absolute 917(H) 0 - 0 /uL 11/05/2025 7:55 AM [facility] Lymphocytes Absolute 1,310 570 - 4,860 /uL 11/05/2025 7:55 AM [facility] Monocytes Absolute 655 0 - 1,296 /uL 11/05/2025 7:55 AM [facility] Eosinophils Absolute 524 0 - 864 /uL 11/05/2025 7:55 AM [facility] Basophils Absolute 131(H) 0 - 108 /uL 11/05/2025 7:55 AM [facility] Microcytosis PRES 11/05/2025 7:55 AM [facility] Macrocytosis PRES 11/05/2025 7:55 AM [facility] [employer] 11/05/2025 7:55 AM [facility] PLT Morphology PLATELET MORPHO 11/05/2025 7:55 AM [facility] Whole Blood 11/05/2025 6:10 AM EST 11/05/2025 7:12 AM EST Narrative [facility] - 11/05/2025 7:55 AM EST Manual WBC differential performed per review criteria approved by the senior medical transcriptionist. us Aspen Parr MD LAB BLOOD ORDERABLES Final Resul t Performing Organization Address City/[facility]/ZIP Co de Phone Number [facility] [address] [place] [address]. [address] * Slide Request (Make Slide and Hold) (11/05/2025 6:10 AM EST) Slide Request Done 11/05/2025 9:05 AM EST [facility] Whole Blood 11/05/2025 6:10 AM EST 11/05/2025 7:12 AM EST Narrative [facility] - 11/05/2025 12:29 PM EST Hold slide for review by->Pathologist Indication for Review:->Hemolysis/schistocytes us Sherrie INTERIANO LAB BLOOD ORDERABLES Final Resul t Performing Organization Address [facility] Co de Phone Number [facility] [address] [place] [address]. [address] * (ABNORMAL) Haptoglobin (11/05/2025 6:10 AM EST) Haptoglobin <30(L) 44 - 215 mg/dL 11/05/2025 7:07 AM EST [facility] Serum 11/05/2025 6:10 AM EST 11/05/2025 6:29 AM EST us Keith Novak MD LAB BLOOD ORDERABLES Fi nal Result Performing Organization Address City/[facility] Co de Phone Number [facility] [address] [place] [address]. [address] * (ABNORMAL) Lactate Dehydrogenase (11/05/2025 6:10 AM EST) LD 380(H) 110 - 270 U/L 11/05/2025 7:03 AM EST [facility] Plasma 11/05/2025 6:10 AM EST 11/05/2025 6:28 AM EST Keith Novak MD LAB BLOOD ORDERABLES Fi nal Result Performing Organization Address [facility] de Phone Number [facility] [address] [place] [address] * Tacrolimus level (11/05/2025 6:10 AM EST) Tacrolimus (LC-MS) 8.2 3.0 - 15.0 ng/mL 11/05/2025 10:00 AM EST [facility] Comment:Performed via liquid chromatography tandem mass spectrometry. Detection limit: 1 ng/mL. Individual target concentrations may vary due to target organ and time after transplant. This test has been developed and its performance characteristics determined by [facility] which is certified under the [...] ORDERABLES Final Resul t Performing Organization Address [facility] de Phone Number [facility] [address] [place] [address]. [address] * Phosphorus (11/05/2025 6:10 AM EST) Phosphorus 2.8 2.1 - 4.7 mg/dL 11/05/2025 7:07 AM EST [facility] Plasma 11/05/2025 6:10 AM EST 11/05/2025 6:28 AM EST Aspen Parr MD LAB BLOOD ORDERABLES Final Resul t Performing Organization Address [facility] Phone Number [facility] [address] [facility]. [address] * Magnesium (11/05/2025 6:10 AM EST) Magnesium 1.7 1.5 - 2.5 mg/dL 11/05/2025 7:07 AM EST [facility] Plasma 11/05/2025 6:10 AM EST 11/05/2025 6:28 AM EST us Aspen Parr MD LAB BLOOD ORDERABLES Final Resul t [facility] [address] [facility]. [address] * (ABNORMAL) CBC (11/05/2025 6:10 AM EST) WBC 13.1(H) 3.8 - 10.8 10E3/uL 11/05/2025 7:55 AM EST [facility] RBC 1.96(L) 4.20 - 5.80 10E6/uL 11/05/2025 7:55 AM EST [facility] Hemoglobin 7.0(L) 13.2 - 17.1 g/dL 11/05/2025 7:55 AM EST [facility] Hematocrit 18.5(L) 38.5 - 50.0 % 11/05/2025 7:55 AM EST [facility] MCV 94.4 80.0 - 100.0 fL 11/05/2025 7:55 AM EST [facility] MCH 35.4(H) 27.0 - 33.0 pg 11/05/2025 7:55 AM EST [facility] MCHC 37.5(H) 32.0 - 36.0 g/dL 11/05/2025 7:55 AM EST [facility] RDW 18.0(H) 11.0 - 15.0 % 11/05/2025 7:55 AM EST [facility] Platelets 162 140 - 400 10E3/uL 11/05/2025 7:55 AM EST [facility] MPV 7.7 7.5 - 11.5 fL 11/05/2025 7:55 AM EST [facility] Whole Blood 11/05/2025 6:10 AM EST 11/05/2025 6:28 AM EST us Aspen Parr MD LAB BLOOD ORDERABLES Final Resul t Performing Organization Address [facility] Co de Phone Number [facility] [address] * (ABNORMAL) Hepatic Function Panel (11/05/2025 6:10 AM EST) Total Bilirubin 14.2(H) 0.0 - 1.5 mg/dL 11/05/2025 7:07 AM EST [facility] Bilirubin, Direct 8.89(H) 0.00 - 0.40 mg/dL 11/05/2025 7:07 AM EST [facility] AST 74(H) 13 - 39 U/L 11/05/2025 7:07 AM EST [facility] ALT 65(H) 7 - 52 U/L 11/05/2025 7:07 AM EST [facility] Alkaline Phosphatase 381(H) 36 - 125 U/L 11/05/2025 7:07 AM EST [facility] Total Protein 5.0(L) 6.4 - 8.9 g/dL 11/05/2025 7:07 AM EST [facility] Albumin 2.6(L) 3.5 - 5.7 g/dL 11/05/2025 7:07 AM EST [facility] Bilirubin, Indirect 5.31(H) 0.00 - 1.10 mg/dL 11/05/2025 7:07 AM EST [facility] Plasma 11/05/2025 6:10 AM EST 11/05/2025 6:28 AM EST us Aspen Parr MD LAB BLOOD ORDERABLES Final Resul t Performing Organization Address [facility]/ZIP Co de Phone Number [facility] [address] [facility]. [address] * (ABNORMAL) Basic metabolic panel (11/05/2025 6:10 AM EST) Sodium 137 133 - 146 mmol/L 11/05/2025 7:07 AM EST [facility] Potassium 4.1 3.5 - 5.3 mmol/L 11/05/2025 7:07 AM [facility] Chloride 106 98 - 110 mmol/L 11/05/2025 7:07 AM [facility] CO2 23 21 - 33 mmol/L 11/05/2025 7:07 AM [facility] Comment:High lactate dehydro genase concentrations in patient samples may cause falsely increased bicarbonate results. If markedly elevated LDH is observed or suspected, please assess results in conjunction with patient`s clinical presentation. In cases of discrepant results, consider evaluating CO2 in with a blood gas order. Anion Gap 8 3 - 16 mmol/L 11/05/2025 7:07 AM [facility] BUN 20 7 - 25 mg/dL 11/05/2025 7:07 AM [facility] Creatinine 1.20 0.60 - 1.30 mg/dL 11/05/2025 7:07 AM [facility] Glucose 147(H) 70 - 100 mg/dL 11/05/2025 7:07 AM [facility] Calcium 7.2(L) 8.6 - 10.3 mg/dL 11/05/2025 7:07 AM [facility] Osmolality, Calculated 289 278 - 305 mOsm/kg 11/05/2025 7:07 AM [facility] EGFR 68 11/05/2025 7:07 AM [facility] Comment:As of 2022, the estimated [...] ORDERABLES Final Resul t Performing Organization Address [facility] de Phone Number [facility] [address] [facility]. [address] * (ABNORMAL) POC Glucose Monitoring Device (11/05/2025 6:00 AM EST) POC Glucose Monitoring Device 169(H) 70 - 100 mg/dL 11/05/2025 6:01 AM EST [facility] Blood 11/05/2025 6:00 AM EST 11/05/2025 6:01 AM EST us Vani Winkler MD POINT OF CARE TEST ORDERABLE S Final Result Performing Organization Address [facility] de Phone Number [facility] [address] [facility]. [address] * (ABNORMAL) POC Glucose Monitoring Device (11/05/2025 12:11 AM EST) POC Glucose Monitoring Device 207(H) 70 - 100 mg/dL 11/05/2025 12:11 AM EST [facility] Blood 11/05/2025 12:1 1 AM EST 11/05/2025 12:11 AM EST us Vani Winkler MD POINT OF CARE TEST ORDERABLE S Final Result Performing Organization Address [facility] Co de Phone Number [facility] [address] [facility]. [address] * Surgical Pathology Exam (11/05/2025 12:00 AM EST) 11/05/2025 11/06/2025 Narrative [facility] - 11/05/2025 12:00 AM EST CASE: [id number] PATIENT: DAVID SERRANO Clinical History: None Given Pre-Operative Diagnosis: None Given Post-Operative Diagnosis: None Given Specimen(s) Submitted: A. 2 Persaud Stained Peripheral Blood Smear CPT Code(s): 72110 X 1 Additional Information: FINAL DIAGNOSIS: Peripheral blood smear: - Normocytic anemia with anisocytosis and polychromasia. - Red blood cell agglutination. - No increase in schistocytes. - Mild leukocytosis with neutrophilia and few left shifted granulocytes. - No circulating blasts. Comment: Clinical correlation and follow up recommended. Complete blood count was performed at [facility] on 11/02/2025. Final Diagnosis performed by Connie Galvan MD Pathologist Electronically signed 11/07/2025 12:56:51 PM The Pathologist signing this report is located at [facility], [address] [place] [address], [facility], , CLIA ID: [id number] Sherrie INTERIANO PATHOLOGY/CYTOLOGY ORDERABLES Fi nal Result Performing Organization Address [facility] Co de Phone Number [facility] * (ABNORMAL) POC Glucose Monitoring Device (11/04/2025 6:48 PM EST) POC Glucose Monitoring Device 268(H) 70 - 100 mg/dL 11/04/2025 6:50 PM EST [facility] Blood 11/04/2025 6:48 PM EST 11/04/2025 6:49 PM EST Vani Winkler MD POINT OF CARE TEST ORDERABLE S Final Result Performing Organization Address [facility] Co de Phone Number [address] * (ABNORMAL) POC Glucose Monitoring Device (11/04/2025 1:00 PM EST) POC Glucose Monitoring Device 238(H) 70 - 100 mg/dL 11/04/2025 1:00 PM EST [facility] Blood 11/04/2025 1:00 PM EST 11/04/2025 1:00 PM EST Vani Winkler MD POINT OF CARE TEST ORDERABLE S Final Result [facility] [address] [place] [id number], [facility] * Fluoro ERCP S-I (11/04/2025 11:16 AM [...] - 100 mg/dL 11/04/2025 9:32 AM EST [facility] Blood 11/04/2025 9:32 AM EST 11/04/2025 9:32 AM EST Vani Winkler MD POINT OF CARE TEST ORDERABLE S Final Result Performing Organization Address [facility] Co de Phone Number [facility] [address] [place] [address] * Tacrolimus level (11/04/2025 6:15 AM EST) Pathologist [facility] Tacrolimus (LC-MS) 9.2 3.0 - 15.0 ng/mL 11/04/2025 11:55 AM EST [facility] Comment:Performed via liquid chromatography tandem mass spectrometry. Detection limit: 1 ng/mL. Individual target concentrations may vary due to target organ and time after transplant. This test has been developed and its performance characteristics determined by [facility] which is certified under the [...] ORDERABLES Final Resul t Performing Organization Address [facility] Co de Phone Number [facility] [address] [place] [address]. [address] * Prepare RBC, leukoreduced, 2 Units (11/04/2025 6:15 AM EST) Product Code I7060T59 HCLL Unit Number [id number] HCLL Dispense Status Presumed Transfused_PT HCLL Blood Expiration Date HCLL Coding System [id number] HCLL Product Code A9174N98 HCLL Unit Number [id number] HCLL Dispense Status Released from Crossmatch_RE HCLL Blood Expiration Date HCLL Coding System [id number] HCLL Blood Bank Product Aspen Parr MD BLOOD BANK PRODUCT ORDERABLES Fi nal Result Performing Organization Address City/[facility]/ZIP Co de Phone Number HCLL * (ABNORMAL) POC Glucose Monitoring Device (11/04/2025 5:18 AM EST) POC Glucose Monitoring Device 152(H) 70 - 100 mg/dL 11/04/2025 5:19 AM EST [facility] Blood 11/04/2025 5:18 AM EST 11/04/2025 5:19 AM EST us Vani Winkler MD POINT OF CARE TEST ORDERABLE S Final Result Performing Organization Address [facility] Co de Phone Number [facility] [address] [facility]. [address] * Phosphorus (11/04/2025 3:39 AM EST) Phosphorus 3.4 2.1 - 4.7 mg/dL 11/04/2025 4:36 AM EST [facility] Plasma 11/04/2025 3:39 AM EST 11/04/2025 3:45 AM EST Aspen Parr MD LAB BLOOD ORDERABLES Final Resul t Performing Organization Address [facility] Co de Phone Number [facility] [address] [facility]. [address] * Magnesium (11/04/2025 3:39 AM EST) Magnesium 1.7 1.5 - 2.5 mg/dL 11/04/2025 4:36 AM EST [facility] Plasma 11/04/2025 3:39 AM EST 11/04/2025 3:45 AM EST Aspen Parr MD LAB BLOOD ORDERABLES Final Resul t Performing Organization Address [facility] Co de Phone Number [facility] [address] [facility]. [address] * (ABNORMAL) CBC (11/04/2025 3:39 AM EST) WBC 14.0(H) 3.8 - 10.8 10E3/uL 11/04/2025 5:22 AM EST [facility] Comment:WBC VERIFIED RBC 2.59(L) 4.20 - 5.80 10E6/uL 11/04/2025 5:22 AM EST [facility] Hemoglobin 8.5(L) 13.2 - 17.1 g/dL 11/04/2025 5:22 AM EST [facility] Hematocrit 23.9(L) 38.5 - 50.0 % 11/04/2025 5:22 AM EST [facility] MCV 92.4 80.0 - 100.0 fL 11/04/2025 5:22 AM EST [facility] MCH 33.0 27.0 - 33.0 pg 11/04/2025 5:22 AM EST [facility] MCHC 35.7 32.0 - 36.0 g/dL 11/04/2025 5:22 AM EST [facility] Comment:Specimen warmed. RDW 17.8(H) 11.0 - 15.0 % 11/04/2025 5:22 AM EST [facility] Platelets 223 140 - 400 10E3/uL 11/04/2025 5:22 AM EST [facility] Comment:Specimen checked for clots. None detected. MPV 7.5 7.5 - 11.5 fL 11/04/2025 5:22 AM EST [facility] Whole Blood 11/04/2025 3:39 AM EST 11/04/2025 3:45 AM EST us Aspen Parr MD LAB BLOOD ORDERABLES Final Resul t [facility] [address] * (ABNORMAL) Basic metabolic panel (11/04/2025 3:39 AM EST) Sodium 136 133 - 146 mmol/L 11/04/2025 4:36 AM EST [facility] Potassium 4.2 3.5 - 5.3 mmol/L 11/04/2025 4:36 AM EST [facility] Chloride 106 98 - 110 mmol/L 11/04/2025 4:36 AM EST [facility] CO2 23 21 - 33 mmol/L 11/04/2025 4:36 AM EST [facility] Comment:High lactate dehydro genase concentrations in patient samples may cause falsely increased bicarbonate results. If markedly elevated LDH is observed or suspected, please assess results in conjunction with patient`s clinical presentation. In cases of discrepant results, consider evaluating CO2 in with a blood gas order. Anion Gap 7 3 - 16 mmol/L 11/04/2025 4:36 AM EST [facility] BUN 19 7 - 25 mg/dL 11/04/2025 4:36 AM EST [facility] Creatinine 1.04 0.60 - 1.30 mg/dL 11/04/2025 4:36 AM EST [facility] Glucose 123(H) 70 - 100 mg/dL 11/04/2025 4:36 AM EST [facility] Calcium 7.9(L) 8.6 - 10.3 mg/dL 11/04/2025 4:36 AM EST [facility] Osmolality, Calculated 286 278 - 305 mOsm/kg 11/04/2025 4:36 AM EST [facility] EGFR 80 11/04/2025 4:36 AM EST [facility] Comment:As of 2022, the estimated [...] MD LAB BLOOD ORDERABLES Final Resul t [facility] [address] * (ABNORMAL) Hepatic Function Panel (11/04/2025 3:39 AM EST) Total Bilirubin 7.1(H) 0.0 - 1.5 mg/dL 11/04/2025 4:36 AM EST [facility] Bilirubin, Direct 4.22(H) 0.00 - 0.40 mg/dL 11/04/2025 4:36 AM EST [facility] AST 40(H) 13 - 39 U/L 11/04/2025 4:36 AM EST [facility] ALT 56(H) 7 - 52 U/L 11/04/2025 4:36 AM EST [facility] Alkaline Phosphatase 325(H) 36 - 125 U/L 11/04/2025 4:36 AM EST [facility] Total Protein 5.9(L) 6.4 - 8.9 g/dL 11/04/2025 4:36 AM EST [facility] Albumin 2.9(L) 3.5 - 5.7 g/dL 11/04/2025 4:36 AM EST [facility] Bilirubin, Indirect 2.88(H) 0.00 - 1.10 mg/dL 11/04/2025 4:36 AM EST [facility] Plasma 11/04/2025 3:39 AM EST 11/04/2025 3:45 AM EST us Aspen Parr MD LAB BLOOD ORDERABLES Final Resul t Performing Organization Address City/[facility]/ZIP Co de Phone Number [facility] [address] [facility]. [address] * Transfuse RBC Transfusion Rate: Per dept routine (11/04/2025 2:10 AM EST) us Nathalie Cohen MD NURSING TREATMENT ORDERABLES - BLOOD ADMIN Final Result EXTERNAL * Transfuse RBC Transfusion Rate: Per dept routine, 1 Units (11/04/2025 2:10 AM EST) Nathalie Cohen MD NURSING TREATMENT ORDERABLES - BLOOD ADMIN Final Result EXTERNAL * (ABNORMAL) POC Glucose Monitoring Device (11/03/2025 11:38 PM EST) POC Glucose Monitoring Device 145(H) 70 - 100 mg/dL 11/03/2025 11:38 PM EST [facility] Blood 11/03/2025 11:3 8 PM EST 11/03/2025 11:38 PM EST us Vani Winkler MD POINT OF CARE TEST ORDERABLE S Final Result [facility] [address] [place] [address], [facility] * (ABNORMAL) CBC (11/03/2025 9:14 PM EST) WBC 13.2(H) 3.8 - 10.8 10E3/uL 11/03/2025 10:47 PM EST [facility] RBC 2.13(L) 4.20 - 5.80 10E6/uL 11/03/2025 10:47 PM EST [facility] Hemoglobin 7.2(L) 13.2 - 17.1 g/dL 11/03/2025 10:47 PM EST [facility] Hematocrit 20.1(L) 38.5 - 50.0 % 11/03/2025 10:47 PM EST [facility] MCV 94.3 80.0 - 100.0 fL 11/03/2025 10:47 PM EST [facility] MCH 33.6(H) 27.0 - 33.0 pg 11/03/2025 10:47 PM EST [facility] MCHC 35.6 32.0 - 36.0 g/dL 11/03/2025 10:47 PM EST [facility] RDW 17.9(H) 11.0 - 15.0 % 11/03/2025 10:47 PM EST [facility] Platelets 240 140 - 400 10E3/uL 11/03/2025 10:47 PM EST [facility] MPV 7.6 7.5 - 11.5 fL 11/03/2025 10:47 PM EST [facility] Whole Blood 11/03/2025 9:14 PM EST 11/03/2025 9:17 PM EST us Keith Grimm [facility] BLOOD ORDERABLES Final Resu lt Performing Organization Address [facility] Co de Phone Number [facility] [address] [place] [address]. [address] * (ABNORMAL) POC Glucose Monitoring Device (11/03/2025 6:00 PM EST) POC Glucose Monitoring Device 345(H) 70 - 100 mg/dL 11/03/2025 6:00 PM EST [facility] Blood 11/03/2025 6:00 PM EST 11/03/2025 6:00 PM EST Vani Winkler MD POINT OF CARE TEST ORDERABLE S Final Result Performing Organization Address [facility] Co de Phone Number [address] * (ABNORMAL) Haptoglobin (11/03/2025 1:52 PM EST) Haptoglobin <30(L) 44 - 215 mg/dL 11/03/2025 2:31 PM EST [facility] Serum 11/03/2025 1:52 PM EST 11/03/2025 1:56 PM EST us Keith Grimm [facility] BLOOD ORDERABLES Final Resu lt Performing Organization Address [facility] Co de Phone Number [facility] [address] [place] [address]. [address] * (ABNORMAL) Lactate Dehydrogenase (11/03/2025 1:52 PM EST) LD 293(H) 110 - 270 U/L 11/03/2025 2:23 PM EST [facility] Plasma 11/03/2025 1:52 PM EST 11/03/2025 1:55 PM EST us Keith Grimm [employer]CROFIL[employer] MACHINE OPERATOR LAB BLOOD ORDERABLES Final Resu lt [facility] [address] * (ABNORMAL) CBC (11/03/2025 1:52 PM EST) WBC 11.3(H) 3.8 - 10.8 10E3/uL 11/03/2025 2:55 PM EST [facility] RBC 2.01(L) 4.20 - 5.80 10E6/uL 11/03/2025 2:55 PM EST [facility] Hemoglobin 7.1(L) 13.2 - 17.1 g/dL 11/03/2025 2:55 PM EST [facility] Hematocrit 19.3(L) 38.5 - 50.0 % 11/03/2025 2:55 PM EST [facility] MCV 95.9 80.0 - 100.0 fL 11/03/2025 2:55 PM EST [facility] MCH 35.2(H) 27.0 - 33.0 pg 11/03/2025 2:55 PM EST [facility] MCHC 36.7(H) 32.0 - 36.0 g/dL 11/03/2025 2:55 PM EST [facility] RDW 17.3(H) 11.0 - 15.0 % 11/03/2025 2:55 PM EST [facility] Platelets 220 140 - 400 10E3/uL 11/03/2025 2:55 PM EST [facility] Comment:Specimen checked for clots. None detected. MPV 7.5 7.5 - 11.5 fL 11/03/2025 2:55 PM EST [facility] Whole Blood 11/03/2025 1:52 PM EST 11/03/2025 1:56 PM EST us Keith Grimm MICROFIL[employer] MACHINE OPERATOR LAB BLOOD ORDERABLES Final Resu lt [facility] [address] * (ABNORMAL) POC Glucose Monitoring Device (11/03/2025 11:47 AM EST) POC Glucose Monitoring Device 225(H) 70 - 100 mg/dL 11/03/2025 11:49 AM EST [facility] Blood 11/03/2025 11:4 7 AM EST 11/03/2025 11:49 AM EST Vani Winkler MD POINT OF CARE TEST ORDERABLE S Final Result Performing Organization Address [facility] Co de Phone Number [facility] [address] * Transfuse RBC Transfusion Rate: Per dept routine (11/03/2025 10:28 AM EST) Aspen Parr MD NURSING TREATMENT ORDERABLES - B LOOD ADMIN Final Result Performing Organization Address [facility] de Phone Number EXTERNAL * Transfuse RBC Transfusion Rate: Per dept routine, 2 Units (11/03/2025 10:28 AM EST) Aspen Parr MD NURSING TREATMENT ORDERABLES - B LOOD ADMIN Edited Result - Final Performing Organization Address [facility] de Phone Number EXTERNAL * US Abdomen [...] EXAM: US ABDOMEN LIMITED EXAM: US DUPLEX [id number] COMPLETE INDICATION: Other - Must specify in [...] EXAM: US ABDOMEN LIMITED EXAM: US DUPLEX [id number] COMPLETE INDICATION: Other - Must specify in [...] 11:24 AM EST us Aspen Parr MD IMG US ORDERABLES Final Result * US Duplex Nbq-Fuf-[id number] Comp (11/03/2025 10:05 AM EST) Anatomical Region [...] EXAM: US ABDOMEN LIMITED EXAM: US DUPLEX [id number] COMPLETE INDICATION: Other - Must specify in [...] EXAM: US ABDOMEN LIMITED EXAM: US DUPLEX [id number] COMPLETE INDICATION: Other - Must specify in [...] 11/03/2025 11:24 AM EST Aspen Parr MD [facility] ORDERABLES Final Result * Tacrolimus level (11/03/2025 6:46 AM EST) Tacrolimus (LC-MS) 9.2 3.0 - 15.0 ng/mL 11/03/2025 12:32 PM EST [facility] Comment:Performed via liquid chromatography tandem mass spectrometry. Detection limit: 1 ng/mL. Individual target concentrations may vary due to target organ and time after transplant. This test has been developed and its performance characteristics determined by [facility] which is certified under the [...] ORDERABLES Final Resul t Performing Organization Address City/[facility] Co de Phone Number [facility] [address] [place] [address]. [address] * Phosphorus (11/03/2025 6:46 AM EST) Phosphorus 3.1 2.1 - 4.7 mg/dL 11/03/2025 8:18 AM EST [facility] Plasma 11/03/2025 6:46 AM EST 11/03/2025 6:54 AM EST Aspen Parr MD LAB BLOOD ORDERABLES Final Resul t Performing Organization Address [facility] Phone Number [facility] [address] [place] [address]. [address] * Magnesium (11/03/2025 6:46 AM EST) Magnesium 1.6 1.5 - 2.5 mg/dL 11/03/2025 8:18 AM EST [facility] Plasma 11/03/2025 6:46 AM EST 11/03/2025 6:54 AM EST Aspen Parr MD LAB BLOOD ORDERABLES Final Resul t Performing Organization Address [facility] Co de Phone Number [facility] [address] [place] [address]. [address] * (ABNORMAL) CBC (11/03/2025 6:46 AM EST) WBC 12.6(H) 3.8 - 10.8 10E3/uL 11/03/2025 9:08 AM EST [facility] RBC 1.78(L) 4.20 - 5.80 10E6/uL 11/03/2025 9:08 AM EST [facility] Hemoglobin 6.2(L) 13.2 - 17.1 g/dL 11/03/2025 9:08 AM EST [facility] Hematocrit 17.2(L) 38.5 - 50.0 % 11/03/2025 9:08 AM EST [facility] MCV 96.6 80.0 - 100.0 fL 11/03/2025 9:08 AM EST [facility] MCH 34.8(H) 27.0 - 33.0 pg 11/03/2025 9:08 AM EST [facility] MCHC 36.1(H) 32.0 - 36.0 g/dL 11/03/2025 9:08 AM EST [facility] RDW 17.8(H) 11.0 - 15.0 % 11/03/2025 9:08 AM EST [facility] Platelets 228 140 - 400 10E3/uL 11/03/2025 9:08 AM EST [facility] MPV 7.4(L) 7.5 - 11.5 fL 11/03/2025 9:08 AM [facility] Whole Blood 11/03/2025 6:46 AM EST 11/03/2025 6:54 AM EST us Aspen Parr MD LAB BLOOD ORDERABLES Final Resul t [facility] [address] * (ABNORMAL) Basic metabolic panel (11/03/2025 6:46 AM EST) Pathologist [facility] Sodium 133 133 - 146 mmol/L 11/03/2025 8:18 AM EST [facility] Potassium 3.9 3.5 - 5.3 mmol/L 11/03/2025 8:18 AM EST [facility] Chloride 105 98 - 110 mmol/L 11/03/2025 8:18 AM EST [facility] CO2 21 21 - 33 mmol/L 11/03/2025 8:18 AM EST [facility] Comment:High lactate dehydro genase concentrations in patient samples may cause falsely increased bicarbonate results. If markedly elevated LDH is observed or suspected, please assess results in conjunction with patient`s clinical presentation. In cases of discrepant results, consider evaluating CO2 in with a blood gas order. Anion Gap 7 3 - 16 mmol/L 11/03/2025 8:18 AM EST [facility] BUN 25 7 - 25 mg/dL 11/03/2025 8:18 AM EST [facility] Creatinine 1.00 0.60 - 1.30 mg/dL 11/03/2025 8:18 AM EST [facility] Glucose 144(H) 70 - 100 mg/dL 11/03/2025 8:18 AM EST [facility] Calcium 7.9(L) 8.6 - 10.3 mg/dL 11/03/2025 8:18 AM EST [facility] Osmolality, Calculated 283 278 - 305 mOsm/kg 11/03/2025 8:18 AM EST [facility] EGFR 84 11/03/2025 8:18 AM EST [facility] Comment:As of 2022, the estimated [...] MD LAB BLOOD ORDERABLES Final Resul t [facility] [address] [facility]. [address] * (ABNORMAL) Hepatic Function Panel (11/03/2025 6:46 AM EST) Total Bilirubin 9.2(H) 0.0 - 1.5 mg/dL 11/03/2025 8:18 AM EST [facility] Bilirubin, Direct 5.59(H) 0.00 - 0.40 mg/dL 11/03/2025 8:18 AM EST [facility] AST 47(H) 13 - 39 U/L 11/03/2025 8:18 AM EST [facility] ALT 59(H) 7 - 52 U/L 11/03/2025 8:18 AM EST [facility] Alkaline Phosphatase 303(H) 36 - 125 U/L 11/03/2025 8:18 AM EST [facility] Total Protein 5.1(L) 6.4 - 8.9 g/dL 11/03/2025 8:18 AM EST [facility] Albumin 2.7(L) 3.5 - 5.7 g/dL 11/03/2025 8:18 AM EST [facility] Bilirubin, Indirect 3.61(H) 0.00 - 1.10 mg/dL 11/03/2025 8:18 AM EST [facility] Plasma 11/03/2025 6:46 AM EST 11/03/2025 6:54 AM EST us Aspen Parr MD LAB BLOOD ORDERABLES Final Resul t [facility] [address] [facility]. [address] * Transfuse RBC Transfusion Rate: Per dept routine (11/03/2025 6:23 AM EST) us Aspen Parr MD NURSING TREATMENT ORDERABLES - B LOOD ADMIN Final Result EXTERNAL * (ABNORMAL) POC Glucose Monitoring Device (11/03/2025 5:45 AM EST) POC Glucose Monitoring Device 173(H) 70 - 100 mg/dL 11/03/2025 5:46 AM EST [facility] Blood 11/03/2025 5:45 AM EST 11/03/2025 5:46 AM EST Vani Winkler MD POINT OF CARE TEST ORDERABLE S Final Result Performing Organization Address [facility]/ZIP Co de Phone Number [facility] [address] * Clostridium difficile DNA Amplification (11/03/2025 5:21 AM EST) Pathologist [facility] Clost. Diff DNA Amp. Negative Negative 11/03/2025 5:50 PM EST [facility] Comment:Positive indicates t oxigenic C. difficile was detected in the sample. Negative indicates that toxigenic C. difficile was not detected above the limit of the detection of the assay. The test methodology is a FDA approved DNA amplification assay. Stool, Liquid FECES / Unknown 11/03/2025 5:21 AM EST 11/03/2025 7:45 AM EST Comment:F Aspen Parr MD BODY FLUIDS AND STOOLS ORDERABLE S Final Result Performing Organization Address City/[facility] Co de Phone Number [facility] [address] * Enteric Pathogen Panel (11/03/2025 5:21 AM EST) [facility] Campylobacter Group (C. ecoli, C. jejuni, C. carie) Not Detected Not Detected 11/03/2025 11:16 AM EST [facility] Salmonella species Not Detected Not Detected 11/03/2025 11:16 AM EST [facility] Shigella species Not Detected Not Detected 11/03/2025 11:16 AM EST [facility] Vibrio Group (Vibrio cholerae, Vibrio parahaemolyticus) Not Detected Not Detected 11/03/2025 11:16 AM EST [facility] Yersinia enterocolitica Not Detected Not Detected 11/03/2025 11:16 AM EST [facility] Shiga toxin 1 Not Detected Not Detected 11/03/2025 11:16 AM EST [facility] Shiga toxin 2 Not Detected Not Detected 11/03/2025 11:16 AM EST [facility] Norovirus Not Detected Not Detected 11/03/2025 11:16 AM EST [facility] Rotavirus Not Detected Not Detected 11/03/2025 11:16 AM EST [facility] Comment: The Enteric Pathogen Panel [...] :21 AM EST 11/03/2025 7:45 AM EST Comment:Yael Rhoades [facility] - 11/03/2025 11:16 AM EST The specimen was leaking upon receipt in the laboratory.Results may be affected. us Aspen Parr MD BODY FLUIDS AND STOOLS ORDERABLE S Final Result [facility] [address] [id number], [facility] * Histoplasma/Blastomyces Ag, EIA, U (11/03/2025 3:20 AM EST) Histoplasma/Blasto myces Ag Result (Urine) Not Detected Not Detected 11/10/2025 10:50 AM EST [facility] Comment: No antigen from Histoplasma or Blastomyces detected. False negative results may occur depending on extent of disease, and/or site of infection. Repeat testing on a new specimen if clinically indicated. Histoplasma/Blasto myces Ag Value (Urine) Not Detected ng/mL 11/10/2025 10:50 AM EST [facility] Comment: ADDITIONAL INFORMATION This test was developed and its performance characteristics determined by [facility] in a manner consistent with CLIA requirements. This test has not been cleared or approved by the U.S. Food and Drug Administration. Test Performed by: [facility] [address] [place] [address] Speeder Operator: Katherin Galindo Ph.D.; CLIA# [id number] Urine URINE SPECIMEN / Unknown 11/03/2025 3:20 AM EST 11/10/2025 10:50 AM EST Aspen Parr MD URINE ORDERABLES Final Result Performing Organization Address City/State/[facility] Co de Phone Number [facility] [address] [facility]. [place] [id number], [facility] * (ABNORMAL) Respiratory viral panel (11/03/2025 2:51 AM EST) Pathologist [facility] Adenovirus Not Detected Not Detected 11/03/2025 6:09 AM EST [facility] Coronavirus (229E,HKU1,NL63,OC 43) Detected(A) Not Detected 11/03/2025 6:09 AM [facility] SARS-CoV-2 Not Detected Not Detected 11/03/2025 6:09 AM [facility] Human Metapneumovirus Not Detected Not Detected 11/03/2025 6:09 AM [facility] Human Rhinovirus/Enterov irus Not Detected Not Detected 11/03/2025 6:09 AM [facility] Influenza A Not Detected Not Detected 11/03/2025 6:09 AM [facility] Influenza A H1 Not Detected Not Detected 11/03/2025 6:09 AM [facility] Influenza A/H1-2009 Not Detected Not Detected 11/03/2025 6:09 AM [facility] Influenza A H3 Not Detected Not Detected 11/03/2025 6:09 AM [facility] Influenza B Not Detected Not Detected 11/03/2025 6:09 AM [facility] Parainfluenza 1 Not Detected Not Detected 11/03/2025 6:09 AM [facility] Parainfluenza 2 Not Detected Not Detected 11/03/2025 6:09 AM [facility] Parainfluenza 3 Not Detected Not Detected 11/03/2025 6:09 AM [facility] Parainfluenza 4 Not Detected Not Detected 11/03/2025 6:09 AM [facility] Resp. Syncycial Virus A Not Detected Not Detected 11/03/2025 6:09 AM EST [facility] Resp. Syncycial Virus B Not Detected Not Detected 11/03/2025 6:09 AM EST [place] [facility] Chlamydia pneumoniae Not Detected Not Detected 11/03/2025 6:09 AM EST [facility] Mycoplasma pneumoniae Not Detected Not Detected 11/03/2025 6:09 AM EST [facility] Comment: The Respiratory Viral-Bacterial Panel [...] Test results have been sent to the [facility] in accordance with state requirements. For a fact sheet for healthcare providers, see https://www.fda.gov/media/128946/download. For a fact sheet for patients, see https://www.fda.gov/media/388452/download. Nasopharyngeal Swab NASOPHARYNGEAL STRUCTURE / Unknown 11/03/2025 2:51 AM EST 11/03/2025 3:40 AM EST us Aspen Parr MD BODY FLUIDS AND STOOLS ORDERABLE S Final Result [facility] [address] * Strep Pneumo-Legionella Urine Antigen (11/03/2025 2:51 AM EST) Strept Pneumo Ag Negative Negative 11/03/2025 6:12 AM EST [facility] Legionella Antigen Negative Negative 11/03/2025 6:12 AM EST [facility] Urine URINE SPECIMEN / Unknown 11/03/2025 2:51 AM EST 11/03/2025 3:39 AM EST [facility] - 11/03/2025 6:12 AM EST Positive indicates detection of either Streptococcus pneumoniae antigen or Legionella pneumophila serogroup 1 antigen. Negative results do not rule out pneumococcal infection or infection with L. pneumophila serogroup 1, other serogroups of L. pneumophila, or other Legionella species. Aspen Parr MD URINE ORDERABLES Final Result [facility] [address] [place] [address], [facility] * (ABNORMAL) Urinalysis w/Rfl to Microscopic (11/03/2025 2:51 AM EST) Color, UA Yellow Yellow,Straw 11/03/2025 3:32 AM [facility] Clarity, UA Clear Clear 11/03/2025 3:32 AM [facility] Specific [place], UA >1.035(H) 1.005 - 1.035 11/03/2025 3:32 AM [facility] pH, UA 6.5 5.0 - 8.0 11/03/2025 3:32 AM [facility] Protein, UA Negative Negative mg/dL 11/03/2025 3:32 AM [facility] Glucose, UA Negative Negative mg/dL 11/03/2025 3:32 AM [facility] Ketones, UA Negative Negative mg/dL 11/03/2025 3:32 AM EST [facility] Bilirubin, UA Negative Negative 11/03/2025 3:32 AM EST [facility] Blood, UA Negative Negative 11/03/2025 3:32 AM [facility] Nitrite, UA Negative Negative 11/03/2025 3:32 AM [facility] Urobilinogen, UA <2.0 0.2 - 1.9 mg/dL 11/03/2025 3:32 AM EST [facility] Leukocyte Esterase, UA Small(A) Negative 11/03/2025 3:32 AM EST [facility] RBC, UA 3 0 - 3 /HPF 11/03/2025 3:32 AM EST [facility] WBC, UA 16(H) 0 - 5 /HPF 11/03/2025 3:32 AM EST [facility] Squam Epithel, UA <1 0 - 5 /HPF 11/03/2025 3:32 AM EST [facility] Urine 11/03/2025 2:5 1 AM EST 11/03/2025 2:59 AM EST us Aspen Parr MD URINE ORDERABLES Final Result [facility] [address] [facility] [place] [address], [facility] * CT Abdomen and Pelvis With IV [...] - 100 mg/dL 11/03/2025 12:27 AM EST [facility] Blood 11/03/2025 12:2 6 AM EST 11/03/2025 12:27 AM EST Vani Winkler MD POINT OF CARE TEST ORDERABLE S Final Result Performing Organization Address City/[facility]/ZIP Co de Phone Number [facility] [address] * Antibody Screen (11/02/2025 11:44 PM EST) Pathologist [facility] Antibody Screen Negative 11/03/2025 12:25 AM EST [facility] Blood 11/02/2025 11:4 4 PM EST 11/02/2025 11:49 PM EST Narrative [facility] - 11/03/2025 12:44 AM EST Testing performed by [facility] Transfusion Service Aspen Parr MD BLOOD BANK TEST ORDERABLES Final Result [facility] [address] * ABO/Rh (11/02/2025 11:44 PM EST) ABO Grouping A 11/03/2025 12:47 AM EST [facility] Rh Type Positive 11/03/2025 12:47 AM EST [facility] Blood 11/02/2025 11:4 4 PM EST 11/02/2025 11:49 PM EST Aspen Parr MD BLOOD BANK TEST ORDERABLES Final Result [facility] [address] * Histoplasma/Blastomyces Ag, EIA, S (11/02/2025 9:13 PM EST) Histoplasma/Blasto myces Ag Result (Serum) Not Detected Not Detected 11/09/2025 12:42 PM EST [facility] Comment: No antigen from Histoplasma or Blastomyces detected. False negative results may occur depending on extent of disease, and/or site of infection. Repeat testing on a new specimen if clinically indicated. Histoplasma/Blasto myces Ag Value (Serum) Not Detected ng/mL 11/09/2025 12:42 PM EST [facility] Comment: ADDITIONAL INFORMATION This test was developed and its performance characteristics determined by [facility] in a manner consistent with CLIA requirements. This test has not been cleared or approved by the U.S. Food and Drug Administration. Test Performed by: [facility] - [id number] [place] [address] Speeder Operator: Katherin Galindo Ph.D.; CLIA# [id number] Serum SERUM SPECIMEN / Unknown 11/02/2025 9:13 PM EST 11/09/2025 12:42 PM EST Comment:S Aspen Parr MD LAB BLOOD ORDERABLES Final Resul t [facility] [address] [facility]. [address] * Blood culture-Peripheral (Blood) (11/02/2025 9:13 PM EST) Culture Result No Growth After 5 Days [facility] Blood BLOOD SPECIMEN / Unknown 11/02/2025 9:13 PM EST 11/02/2025 9:33 PM EST Narrative [facility] - 11/07/2025 9:49 PM EST Please obtain two separate peripheral sticks us Aspen Parr MD MICROBIOLOGY - GENERAL ORDERABLE S Final Result [facility] [address] * (ABNORMAL) Hepatic Function Panel (11/02/2025 9:08 PM EST) Total Bilirubin 7.2(H) 0.0 - 1.5 mg/dL 11/02/2025 10:01 PM EST [facility] Bilirubin, Direct 4.34(H) 0.00 - 0.40 mg/dL 11/02/2025 10:01 PM EST [facility] AST 37 13 - 39 U/L 11/02/2025 10:01 PM EST [facility] ALT 62(H) 7 - 52 U/L 11/02/2025 10:01 PM EST [facility] Alkaline Phosphatase 303(H) 36 - 125 U/L 11/02/2025 10:01 PM EST [facility] Total Protein 5.4(L) 6.4 - 8.9 g/dL 11/02/2025 10:01 PM EST [facility] Albumin 2.8(L) 3.5 - 5.7 g/dL 11/02/2025 10:01 PM EST [facility] Bilirubin, Indirect 2.86(H) 0.00 - 1.10 mg/dL 11/02/2025 10:01 PM EST [facility] Plasma 11/02/2025 9:08 PM EST 11/02/2025 9:30 PM EST Aspen Parr MD LAB BLOOD ORDERABLES Final Resul t [facility] [address] * (ABNORMAL) Magnesium (11/02/2025 9:08 PM EST) Magnesium 1.3(L) 1.5 - 2.5 mg/dL 11/02/2025 10:01 PM EST [facility] Plasma 11/02/2025 9:08 PM EST 11/02/2025 9:30 PM EST Aspen Parr MD LAB BLOOD ORDERABLES Final Resul t Performing Organization Address [facility] Co de Phone Number [facility] [address] [facility]. [address] * (ABNORMAL) Renal Function Panel w/EGFR (11/02/2025 9:08 PM EST) Sodium 132(L) 133 - 146 mmol/L 11/02/2025 10:01 PM EST [facility] Potassium 4.6 3.5 - 5.3 mmol/L 11/02/2025 10:01 PM [facility] Chloride 103 98 - 110 mmol/L 11/02/2025 10:01 PM EST [facility] CO2 22 21 - 33 mmol/L 11/02/2025 10:01 PM [facility] Comment:High lactate dehydro genase concentrations in patient samples may cause falsely increased bicarbonate results. If markedly elevated LDH is observed or suspected, please assess results in conjunction with patient`s clinical presentation. In cases of discrepant results, consider evaluating CO2 in with a blood gas order. Anion Gap 7 3 - 16 mmol/L 11/02/2025 10:01 PM EST [facility] BUN 29(H) 7 - 25 mg/dL 11/02/2025 10:01 PM EST [facility] Creatinine 1.17 0.60 - 1.30 mg/dL 11/02/2025 10:01 PM [facility] Glucose 289(H) 70 - 100 mg/dL 11/02/2025 10:01 PM EST [facility] Calcium 7.8(L) 8.6 - 10.3 mg/dL 11/02/2025 10:01 PM EST [facility] Phosphorus 3.4 2.1 - 4.7 mg/dL 11/02/2025 10:01 PM EST [facility] Albumin 2.8(L) 3.5 - 5.7 g/dL 11/02/2025 10:01 PM EST [facility] Osmolality, Calculated 290 278 - 305 mOsm/kg 11/02/2025 10:01 PM EST [facility] EGFR 70 11/02/2025 10:01 PM EST [facility] Comment:As of 2022, the estimated [...] MD LAB BLOOD ORDERABLES Final Resul t [facility] [address] [place] [address], [facility] * (ABNORMAL) CBC (11/02/2025 9:08 PM EST) WBC 12.2(H) 3.8 - 10.8 10E3/uL 11/02/2025 10:19 PM EST [facility] RBC 1.61(L) 4.20 - 5.80 10E6/uL 11/02/2025 10:19 PM EST [facility] Hemoglobin 5.7(LL) 13.2 - 17.1 g/dL 11/02/2025 10:19 PM EST [facility] Comment: Results verified by repeat analysis. Critical Result HGB:5.7 Called to and read back by: ERICA BENJAMIN RN at: 11/02/2025 22:18:41 by:DEJON Hematocrit 16.0(L) 38.5 - 50.0 % 11/02/2025 10:19 PM EST [facility] MCV 98.9 80.0 - 100.0 fL 11/02/2025 10:19 PM EST [facility] MCH 35.5(H) 27.0 - 33.0 pg 11/02/2025 10:19 PM EST [facility] MCHC 35.9 32.0 - 36.0 g/dL 11/02/2025 10:19 PM EST [facility] Comment:Specimen warmed. RDW 17.6(H) 11.0 - 15.0 % 11/02/2025 10:19 PM EST [facility] Platelets 266 140 - 400 10E3/uL 11/02/2025 10:19 PM EST [facility] MPV 7.9 7.5 - 11.5 fL 11/02/2025 10:19 PM EST [facility] Whole Blood 11/02/2025 9:08 PM EST 11/02/2025 9:30 PM EST us Aspen Parr MD LAB BLOOD ORDERABLES Final Resul t Performing Organization Address City/State/[facility] Co de Phone Number [facility] [address] * Fungitell (11/02/2025 9:08 PM EST) Fungitell Value <31.25 pg/mL 4:19 PM EST [facility] Reference Value Comment 4:19 PM EST [facility] Comment:Negative: <60, Posit silverio: >/=60 Clinical Relevance Notes 2024 4:19 PM EST [facility] Comment: The Fungitell test is [...] Cryptococcus, which produce very low levels of (1,3)-glpv-O-biaist. This test will not detect the zygomycetes, such as Absidia, Blastomyces, Mucor, and Rhizopus, which are not known to produce (1,3)-acug-C-pitvcx. In addition, the yeast phase of Blastomyces dermatitidis produces little (1,3)-vojn-M-cbjgsj and may not be detected by the assay. Disclaimer: Notes 11/06/2025 4:19 PM EST [facility] Comment: This test has been cleared or approved for diagnostic use by the U.S. Food and Drug Administration. Performance characteristics were verified by [employer]. Electronically signed by: Comment 11/06/2025 4:19 PM EST [facility] Comment:Kesha Lowrytell Result Comment 11/06/20 4:19 PM EST [facility] Comment:Negative Interpretation Notes 11/06/2025 4:19 PM EST [facility] Comment: (1,3) Fixr-H-Eubmes was NOT DETECTED in the sample. Reasons for negative results could include the patient being in the early stage of infection before detectable levels of (1,3) Qrrq-W-Jnsuap are present. Clinical diagnosis should be made in the context of the patient's complete medical history. Serum 11/02/2025 9:08 PM EST 11/06/2025 5:07 PM EST Narrative [facility] - 11/06/2025 5:07 PM EST PERFORMED AT: [employer] [address] [place] [address] [address] [place], [place] [id number] DEVELOPER AUTOMATIC: Serge Anderson, PhD PHONE: [phone] us Aspen Parr MD LAB BLOOD ORDERABLES Final Resul t [facility] [address] [place], [place] [address] [place] [address] * Jose-Mims Virus (EBV) PCR (11/02/2025 9:08 PM EST) EBV DNA, Quantitative PCR <35 IU/mL 11/05/2025 2:02 PM EST [facility] EBV DNA, Log10 See Note log 10 IU/mL 11/05/2025 2:02 PM EST [facility] Comment: Beginning March 09, 2023, [facility] has transitioned EBV viral load testing to [...] MD LAB BLOOD ORDERABLES Final Resul t [facility] [address] [place] [address] * Cryptococcus Ag (11/02/2025 9:08 PM EST) Crypto Ag, Ser Negative Negative 11/02/2025 10:33 PM EST [facility] Crypto Ag Titer, Ser Not Applicable 11/02/2025 10:33 PM EST [facility] Serum SERUM SPECIMEN / Unknown 11/02/2025 9:08 PM EST 11/02/2025 9:56 PM EST Comment:S Aspen Parr MD LAB BLOOD ORDERABLES Final Resul t [facility] [address] [facility]. [address] * Cytomegalovirus (CMV) PCR (11/02/2025 9:08 PM EST) [facility] CMV DNA Qnt Not Detected IU/mL 11/05/2025 11:37 AM EST [facility] Comment:Test methodology for CMV DNA quantification is an FDA-approved nucleic acid amplification assay. The Lower Limit of Quantitation (LLOQ) and Limit of Detection (LoD) for EDTA plasma is 34.5 IU/mL. The linear range of the assay is 34.5- 10,000,000 IU/mL. The reference range is Not Detected. Log10 CMV Qn DNA PI See Note log 10 IU/mL 11/05/2025 11:37 AM EST [facility] Comment:CMV DNA not detected Plasma 11/02/2025 9:08 PM EST 11/02/2025 9:36 PM EST Aspen Parr MD LAB BLOOD ORDERABLES Final Resul t Performing Organization Address City/[facility]/ZIP Co de Phone Number [facility] [address] [facility]. [address] * Aspergillus Ag (11/02/2025 9:08 PM EST) [facility] Aspergillus Ag. 0.03 0.00 - 0.49 Index 11/07/2025 5:53 PM EST [facility] Serum SERUM SPECIMEN / Unknown 11/02/2025 9:08 PM EST 11/09/2025 12:07 PM EST Comment:S Aspen Parr MD BODY FLUIDS AND STOOLS ORDERABLE S Final Result [facility] [address] [place] [address]. [address] * Adenovirus PCR (11/02/2025 9:08 PM EST) [facility] Adenovirus, Quantitative PCR 0 0 - 0 copies/mL 11/07/2025 2:36 PM EST [facility] Comment: Testing performed by [facility], On license of [facility] [place] [place], [place]. This test(s) was developed and its performance characteristics determined and validated by the Department of Pathology and Laboratory Medicine at [facility]. It has not been cleared or approved [...] ORDERABLES Final Resul t Performing Organization Address City/[facility]/ZIP Co de Phone Number [facility] [address] [place] [address]. [address] * Blood culture-Peripheral (Blood) (11/02/2025 9:08 PM EST) Culture Result No Growth After 5 Days [facility] Blood BLOOD SPECIMEN / Unknown 11/02/2025 9:08 PM EST 11/02/2025 9:33 PM EST Narrative [facility] - 11/07/2025 9:48 PM EST Please obtain two separate peripheral sticks Aspen Parr MD MICROBIOLOGY - GENERAL ORDERABLE S Final Result [facility] [address] [place] [address]. [address] * (ABNORMAL) POC Glucose Monitoring Device (11/02/2025 8:51 PM EST) POC Glucose Monitoring Device 334(H) 70 - 100 mg/dL 11/02/2025 8:51 PM EST [facility] Blood 11/02/2025 8:51 PM EST 11/02/2025 8:51 PM EST us Vani Winkler MD POINT OF CARE TEST ORDERABLE S Final Result [facility] [address] [place] [address], [facility] documented in this encounter Visit Diagnoses Not [...] Given 11/07/2025 6:11 PM EST 975 mg acyclovir (ZOVIRAX) tablet 800 [...] needed. Labeled tablet strength may vary by statistical methods professor (may be expressed as grams of carbohydrates) per tablet. Each tablet = 4 grams of glucose. Do not give chewable tablets via feeding tube heparin (porcine) injection 5,000 Units 5,000 Units, Subcutaneous, Every 8 hours scheduled (3 times per day), First dose (after last modification) on Wed11/05/25 at 2100, On hold since Wed11/05/2025 at 1804 until manually unheld insulin lispro (humaLOG/ADMELOG) injection 0-10 Units 0-10 Units, Subcutaneous, At Bedtime (2100), First dose on Wed11/05/25 at 2100, HIGH ALERT MEDICATION Onset of action is rapid. Give dose 5-10 minutes before meal. Have meal at bedside. Given 11/07/2025 9:22 PM EST 5 Units Abdominal Tissue Given 11/06/2025 10:29 PM EST 5 [...] Ri ght Arm insulin lispro (humaLOG/ADMELOG) injection 5 Units [...] AM EST 15 Units Ri ght Arm methocarbamoL (ROBAXIN) tablet 500 mg 500 mg, Oral, 2 times daily, First dose on Wed11/02/25 at 2100 Given 11/08/2025 8:07 AM EST 500 mg Given 11/07/2025 9:21 PM EST 500 mg Given 11/07/2025 9:06 AM EST 500 mg mycophenolate (CELLCEPT) capsule 500 mg 500 mg, Oral, 2 times daily, First dose on Wed11/02/25 at 2100, LEVEL 2 HAZARDOUS MEDICATION Given 11/08/2025 8:07 AM EST 500 mg Given 11/07/2025 9:20 PM EST 500 mg Given 11/07/2025 9:06 AM EST 500 mg OMNIPAQUE 300 mg/mL (iohexol) PRN - One Step Medication Only, Starting on 11/04/25 at 1112, Intra-procedure(GI) Given 11/04/2025 11:12 AM EST 1 4 mLs pantoprazole (PROTONIX) injection 40 mg 40 mg, [...] in sodium chloride 0.9 % 100 mL [id number] IVPB 3.375 g, Intravenous, at 25 mL/hr, Every 8 hours, First dose on 11/03/25 at 1900, For 16 doses, Use [id number] Adapter - Mix Thoroughly Before Administration New Bag 11/08/2025 3:41 PM EST 3.375 g 25 mL/hr New Bag 11/08/2025 6:30 AM EST 3.375 g 25 mL/hr New Bag 11/07/2025 11:08 PM EST 3.375 g 25 mL/hr predniSONE (DELTASONE) tablet 60 mg 60 mg, Oral, Daily, First dose on Maris 11/08/25 at 0900 Given 11/08/2025 8:07 AM EST 60 mg tacrolimus (PROGRAF) capsule 6 mg 6 mg, Oral, Two times a day, First dose (after last modification) on 11/07/25 at 1900, LEVEL 2 HAZARDOUS MEDICATION Given [...] Bj Sy RN) 0907 (Given - Provider: eVronica Winter RN) 0810 (Given - Provider: Veronica [...] dose 1158 (New Bag - Provider: Veronica Winter, SILVIO) methocarbamoL (ROBAXIN) tablet 500 mg 500 mg, Oral, 2 times daily, First dose on Wed11/02/25 at 2100 0809 (Given - Provider: Bj Sy RN)2103 (Given - Provider: Anum Morales RN) 905 (Given - Provider: Veronica Winter RN)2120 (Given - Provider: Jonathan Bazzi RN) 08 (Given - Provider: Veronica Winter RN) methylPREDNISolone [...] - Reason: Other - Comment: HELD BY md) 0900 (Automatically Held - Provider: Keith Grimm CNP) 09 (Automatically Held - Provider: Keith Grimm CNP)2143 (Unheld by provider - Provider: Automatic Discharge [...] in sodium chloride 0.9 % 100 mL [id number] IVPB(Linked Group 3) 3.375 g, Intravenous, at 25 mL/hr, Every 8 hours, First dose on 11/03/25 at 1900, For 16 doses, Use [id number] Adapter - Mix Thoroughly Before Administration 0212 [...] RN) 0630 (New Bag - Provider: Jonathan Bazzi RN)1541 (New Bag - Provider: Veronica Winter RN) [...] needed. Labeled tablet strength may vary by statistical methods professor (may be expressed as grams of carbohydrates) [...] RN) 2120 (See Alternative - Provider: Jonathan Bazzi, SILVIO) 1708 (Given - Provider: Veronica Winter, SILVIO) traMADoL (ULTRAM) tablet 50 mg(Linked Group 5) 50 mg, Oral, Every 6 hours PRN, severe pain (NRS 7-10) or if patient is non-communicative (CPOT 6-8), Starting on Wed11/05/25 at 1431 2104 (Given - Provider: Anum Morales RN) 2120 (Given - Provider: Jonathan Bazzi, SILVIO) 1708 (See Alternative - Provider: Veronica Winter, SILVIO) Linked Groups Order Group 1: insulin lispro [...] in sodium chloride 0.9 % 100 mL [id number] (COMPLETED) 4.5 g, Intravenous, at 200 mL/hr, Once, On Wed11/03/25 at 1100, For 1 dose, Use [id number] Adapter - Mix Thoroughly Before Administration Followed by piperacillin-tazobactam (ZOSYN) 3.375 g in sodium chloride 0.9 % 100 mL [id number] IVPBJump to med 3.375 g, Intravenous, at 25 mL/hr, Every 8 hours, First dose on Wed11/03/25 at 1900, For 16 doses, Use [id number] Adapter - Mix Thoroughly Before Administration Group [...] documented as of this encounter Care Teams Holder Pile Driving Relationship Specialty Start Date End Date Dr. Chris Medel MD [address] [place] [address] PCP - General Primary Care 10/25/25 documented as of this encounter
--- OUTSIDE RECORDS SUMMARY | 2025-11-04 09:45 | XMS_ITS | Encounter Summary ---
Author Organization [facility] Address [address] [place] [id number] Care Team Providers Care Bean Sorter Name Role Phone Dr. Chris Medel [...] release of HIV test results or diagnoses. [id number] Health Reason for Visit * Auth/Cert (Routine) Specialty Diagnoses / Procedures Referred By Gianna t Referred To Contact Transplant Diagnoses Elevated LFTs and bili [facility] 8CCP [address] [place] [address] Phone: tel: Referral ID Status Reason Start Date Expiration Date Visits Re quested Visits Authorized [id number] 1 1 Encounter Details Date Type Department Care Team (Late st Contact Info) Description 11/04/2025 9:45 AM EST Anesthesia Event [facility] ENDOSCOPY [address] [place] [address] aBlwinder Cummings MD [address] [place] [id number] Popeye Becker MD [address] [place] [id number] Anesthesia Record Procedure Summary Procedure Name Responsible Anesthesiologist Anesthesia Start Time Anesthesia Stop Time ERCP W Stent Placement Balwinder Cummings MD 11/04/25 0945 11/04/25 1128 Events Date Time Event Comment 11/04/2025 0945 An Start 0945 An Start Data 0951 An Induction 0954 An Intubation 0955 Time Out 1109 An Emergence 1110 Extubation 1117 an stop data 1128 An Stop Meds Name Total lidocaine (XYLOCAINE) 20 mg/mL (2%) inje ction 80 mg propofol (DIPRIVAN) 10 mg/ml IV injectio n (BOLUS) 200 mg succinylcholine (QUELICIN) 20 mg/mL inje ction 100 mg ondansetron (ZOFRAN) 4 mg/2 mL injection 4 mg dexamethasone (DECADRON) injection 4 mg/ mL 4 mg glucagon,human recombinant (GLUCAGEN) 1 mg/mL injection 0.5 mg esmolol (BREVIBLOC) injection 10 mg/mL 1 0 mL 10 mg 0.9% NaCl infusion 550 mL * Agents Name N2O O2 N2O Air Sevoflurane * Blood No blood administrations on file. Lines, Drains, and Airways Type Details Placement Removal Incision 10/17/25; 2136; Abdomen; N/A; 4x8 tegaderm 10/17/252136 by Jonatan De La O RN Peripheral IV 11/03/25; 2245; 20 G ; Anterior, Distal, Right; Forearm; Tolerated well 11/03/252244 by Mariza Severino RN Peripheral IV 11/02/25; 2240; 20 G ; Anterior, Right; Forearm; None; Ultrasound Guided; Tolerated well 11/02/252239 by Starla Gomez RN 11/06/252113 by Anum Morales, SILVIO Anesthesia Airway Device I.V.; Standard; Easy Mask Ventilation; jaw thrust, chin lift, 2 person mask ventilation, 100 mm oral airway (red); Laryngoscope Handle; Mac; 4; Oral; Grade I View; ETT; 7.5 mm; Cuffed; 10 mL; 23 cm; 1; BIOSOLIDS MANAGEMENT TECHNICIAN; A Manuel BIOSOLIDS MANAGEMENT TECHNICIAN; Capnograph; Yes; 11/04/25; 1110 11/04/25 1006 by 11/04/25 1110 by Ann Jackson CRNA documented in this encounter Social History Tobacco [...] living in a snf (including now)? No 11/02/2025 Utilities Answer Date [...] BP/Pulse Question Answer Entry Date Author [id number] 1 11/04/2025 11:16 AM EST Inte rface, Datacaptor Device In documented in this encounter Progress Notes * Balwinder Cummings MD - 11/04/2025 11:44 AM EST Anesthesia Post Note Patient: David Pop Procedure(s) Performed: Procedure(s): ERCP W Stent Placement Anesthesia type: general Patient location: Endoscopy PACU Airway patency: Patent Pain management: Adequate PONV status: None Hydration status: Adequate Post assessment: No apparent anesthetic complications Level of consciousness: Awake Post vitals: Stable Last Vitals: Vitals: 11/04/25 0900 11/04/25 0927 11/04/25 1125 11/04/25 1130 BP: 99/59 106/65 130/79 128/77 BP Location: Left upper arm Left upper arm Left upper arm Patient Position: Lying Lying Sitting BP Cuff Size: Regular Pulse: 73 75 Resp: 18 18 18 18 Temp: 97.8 ??F (36.6 ??C) 98.4 ??F (36.9 ??C) 99.1 ??F (37.3 ??C) TempSrc: Oral Oral Oral SpO2: 98% 96% 96% 96% Weight: 175 lb (79.4 kg) Height: 5' 7 (1.702 m) Last Temperature: 99.1 ??F (37.3 ??C) (11/04/2025 11:25 AM) Complications: There were no known notable events for this encounter. documented in this encounter H&P Notes * Ann Jackson CRNA - 11/04/2025 7:43 AM EST [facility] DEPARTMENT OF ANESTHESIOLOGY PRE-PROCEDURAL EVALUATION David Pop is a 65 y.o. year old male presenting for: Procedure(s): ERCP EUS UPPER AND EGD Surgeon: Matheus Bonilla MD Chief Complaint Elevated LFTs and bili Review of Systems Anesthesia Evaluation Patient summary reviewed. No history of anesthetic complications I have reviewed the History and Physical Exam, any relevant changes are noted in the anesthesia pre-operative evaluation. Cardiovascular: Exercise tolerance: good Do Met score: 4 - Raking leaves. Weeding or pushing a power mower. Hypertension is. (-) past SD, CAD, cardiomyopathy, CABG/stent, dysrhythmias, angina, CHF. ROS comment: TTE ?? Left Ventricle: The left ventricle is normal [...] no regional wall motion abnormalities are seen. ?? Right Ventricle: The right ventricle is normal in size. The right ventricular systolic function is normal. The estimated right ventricular systolic pressure is >/= 38 mmHg. ?? Left Atrium: The left atrial size is mildly increased with an indexed volume of 35-41 mL/m2. Intravenous injection of agitated saline demonstrate late appearance of moderate amount of bubbles in the left heart consistent with moderate degree of intrapulmonary shunting. ?? Compared to the most recently available prior study, and allowing for differences in image quality and technique, the LV diastolic function is worse and the degree of transpulmonary shunt is increased. Neuro/Muscoloskeletal/Psych: (-) seizures, neuromuscular disease, TIA, CVA, psychiatric history, no anxiety, no depression. Pulmonary: (-) no pneumonia, COPD, asthma, recent URI, sleep apnea, no PE. GI/Hepatic/Renal: (+) hiatal hernia, liver disease and end stage liver disease (s/p OLT 10/17/25). Chronic renal disease (Nephrolithiasis). (-) GERD, PUD, hepatitis. Endo/Other: (+) anemia and bleeding disorder. (-) diabetes mellitus, hypothyroidism, hyperthyroidism, no thrombocytopenia, no HIV, no cancer, no DVT, no [...] N/A 10/17/2025 Procedure: TRANSPLANT LIVER; Surgeon: Vani Drew MD; Location: [facility]; Service: Transplant; Laterality: N/A; Family History No family history on file. [...] Strain: Low Risk (06/15/2025) Received from [facility] Overall Financial Resource Strain (CARDIA) [...] Physical Activity: Inactive (06/15/2025) Received from [facility] Exercise Vital Sign On average, how many days per week do you engage in moderate to strenuous exercise (like a brisk walk)?: 0 days On average, how many minutes do you engage in exercise at this level?: 0 min Stress: No Stress Concern Present (06/15/2025) Received from [facility] [employer] [place] [employer] - Occupational Stress Questionnaire Do you feel stress - tense, restless, nervous, or anxious, or unable to sleep at night because yourmind is troubled all the time - these days?: Only a little Social Connections: Socially Integrated (06/15/2025) Received from [facility] Social Connection and Isolation Panel In a typical week, how many times do you talk on the phone with family, friends, or neighbors?: More than three times a week How often do you get together with friends or relatives?: More than three times a week How often do you attend adventist or scientologist services?: More than 4 times per year [...] breakfast. pen needle, diabetic 32 gauge x 32 Ndle For use with insulin pen. Use [...] total) by mouth 2 times a day. Inpatient Meds: Scheduled: acetaminophen 975 mg Oral Q8H acyclovir 800 [...] Daily 0900 tacrolimus 5 mg Oral BID Continuous: electrolyte 75 mL/hr (11/04/25 0216) sodium chloride 0.9 % 20 mL/hr (11/03/25 2319) PRN: dextrose 10% in water OR dextrose 10% in water, glucose Vital Signs Wt Readings from Last 3 Encounters: 11/02/25 175 lb (79.4 kg) 10/30/25 184 lb 9.6 oz (83.7 kg) 10/17/25 220 lb (99.8 kg) Ht Readings from Last 3 Encounters: 11/02/25 5' 7 (1.702 m) 10/30/25 5' 6 (1.676 m) 10/17/25 5' 6 (1.676 m) Temp Readings from Last 3 Encounters: 11/04/25 98.4 ??F (36.9 ??C) (Oral) 10/30/25 97.4 ??F (36.3 ??C) (Oral) 10/22/25 98.3 ??F (36.8 ??C) (Oral) BP Readings from Last 3 Encounters: 11/04/25 102/68 10/30/25 109/67 10/22/25 123/86 Pulse Readings from Last 3 Encounters: 11/04/25 68 10/30/25 79 10/22/25 74 SpO2 Readings from Last 3 Encounters: 11/04/25 95% 10/30/25 100% 10/22/25 96% Physical Exam Airway: Mallampati: II Mouth Opening: >2 FB TM distance: > = 3 FB Comment: 10/17/25; 1350; I.V., Modified Rapid Sequence; Standard; Walter Video MAC; 4; Oral; GradeI View; ETT; 8 mm; Cuffed; 8 mL; 24 cm; Stylet Standard; 1; Resident; Capnograph; Yes; 10/19/25; 2248 (+) facial hair Dental: - No obvious cracked, loose, chipped, or missing teeth. Pulmonary: Breathing: unlabored (-) no wheezes and no PE. Cardiovascular: Rhythm: regular Rate: normal (-) peripheral edema and weak pulses. Neuro/Musculoskeletal/Psych: Mental status: alert and oriented to person, place and time. Abdominal: - normal exam Current OB Status: Other Findings: Laboratory Data Lab Results Component Value Date WBC 14.0 (H) 11/04/2025 HGB 8.5 (L) 11/04/2025 HCT 23.9 (L) 11/04/2025 MCV 92.4 11/04/2025 PLT 223 11/04/2025 No results found for: ABORH Lab Results Component Value Date GLUCOSE 123 (H) 11/04/2025 BUN 19 11/04/2025 CO2 23 11/04/2025 CREATININE 1.04 11/04/2025 K 4.2 11/04/2025 NA 136 11/04/2025 CL 106 11/04/2025 CALCIUM 7.9 (L) 11/04/2025 ALBUMIN 2.9 (L) 11/04/2025 PROT 5.9 (L) 11/04/2025 ALKPHOS 325 (H) 11/04/2025 ALT 56 (H) 11/04/2025 AST 40 (H) 11/04/2025 BILITOT 7.1 (H) 11/04/2025 Lab Results Component Value Date INR 1.4 (H) 10/19/2025 No results found for: PREGTESTUR , PREGSERUM , HCG , HCGQUANT Anesthesia Plan ASA 4 Anesthesia Type: general. PONV Risk Factors: current non-smoker trial extubation performed Induction: Intravenous induction. Plan, alternatives, and risks of anesthesia, including , have been explained to and discussed with patient. Use of blood products discussed with Patient. Plan discussed with BIOSOLIDS MANAGEMENT TECHNICIAN. ANESTHESIOLOGY ATTENDING ADDENDUM: I have interviewed and [...] agreed to the planabove. Slade Munoz MD, [facility] Department of Anesthesiology [1] Allergies Allergen Reactions Lisinopril Other (See Comments) [2] Patient Active Problem List Diagnosis Alcoholic cirrhosis (CMS-HCC) Ascites Hepatic encephalopathy (CMS-HCC) Esophageal varices (CMS-HCC) Pre-transplant evaluation for chronic liver disease Encounter for pre-transplant evaluation for liver transplant documented in this encounter Miscellaneous Notes * Extubation Criteria - Ann Jackson CRNA - 11/04/2025 11:27 AM EST Anesthesia Extubation Criteria: Airway Device: endotracheal tube Emergence Details: Smooth _x_ Stormy __ Prolonged __ Extubation Criteria: Motor strength intact _x_ Follows commands _x_ Good airway reflexes _x_ OP suctioned _x_ Follows commands: Yes Patient extubated: Yes documented in this encounter Plan of Treatment Not on file documented as of this encounter Visit Diagnoses * Transfer of Care - Ann Jackson CRNA - 11/04/2025 11:28 AM EST Anesthesia Transfer of Care Note Patient: David Pop Procedure(s) Performed: Procedure(s): ERCP EUS UPPER AND EGD Patient location: Endoscopy PACU Anesthesia type: general Airway Device on Arrival to PACU/ICU: Room Air IV Access: Peripheral Monitors Recommended to be Used During PACU/ICU: Standard Monitors Outstanding Issues to Address: None Level of Consciousness: awake, alert , and oriented Post vital signs: Vitals: 11/04/25 1127 BP: 130/70 Pulse: 84 Resp: 16 Temp: 99.1 ??F SpO2: 96% Complications: No notable events documented. Date 11/03/25699 - 11/04/25 0659 11/04/25 07 - 11/05/25 0659 Shift 4098-9647 3723-4503 5724-0234 24 Hour Total 8053-9560 2677-3789 5963-8653 24 Hour Total INTAKE P.O. 120 120 240 0 0 P.O. 120 120 240 0 0 I.V.(mL/kg) 550(6.9) 550(6.9) Volume (mL) (sodium chloride 0.9 % IV infusion) 550 550 Blood 463.3 311.7 775 Volume (Transfuse RBC Transfusion Rate: Per dept routine) 463.3 463.3 Volume (Transfuse RBC Transfusion Rate: Per dept routine) 311.7 311.7 Shift Total(mL/kg) 583.3(7.3) 120(1.5) 311.7(3.9) 1015(12.8) 550(6.9) 550(6.9) OUTPUT Urine(mL/kg/hr) 575(0.9) 125(0.2) 825(1.3) 1525(0.8) 0 0 Urine 575 657 516 3025 0 0 Urine Occurrence 1 x 1 x 2 x 0 x 0 x Emesis/NG output 0 0 0 0 Emesis 0 0 0 0 Emesis Occurrence 0 x 0 x 0 x 0 x Stool 0 0 Stool Occurrence 2 x 1 x 3 x 1 x 1 x Stool 0 0 Blood 0 0 0 0 Est Blood Loss 0 0 0 0 Blood 0 0 0 0 Shift Total(mL/kg) 575(7.2) 125(1.6) 825(10.4) 1525(19.2) 0(0) 0(0) Weight (kg) 79.4 79.4 79.4 79.4 79.4 79.4 79.4 79.4 documented in this encounter Administered Medications Inactive Administered Medications - up to 3 most recent administrations Medication Order MAR Action Action Date Dose Rate Site dexamethasone (DECADRON) injection Intravenous, PRN - One Step Medication Only, Starting on 11/04/25 at 0958, Anesthesia Intra-op Given 11/04/2025 9:58 AM EST 4 mg esmoloL (BREVIBLOC) injection Intravenous, PRN - One Step Medication Only, Starting on 11/04/25 at 1100, Anesthesia Intra-op Given 11/04/2025 11:00 AM EST 10 mg glucagon HCL 1 mg/mL injection Intravenous, PRN - One Step Medication Only, Starting on 11/04/25 at 1006, Anesthesia Intra-op Given 11/04/2025 10:47 AM EST 0.25 mg Given 11/04/2025 10:06 AM EST 0.25 mg lidocaine (PF) 20 mg/mL (2 %) Soln Intravenous, PRN - One Step Medication Only, Starting on 11/04/25 at 0952, Anesthesia Intra-op Given 11/04/2025 9:52 AM EST 80 mg ondansetron (ZOFRAN) injection Intravenous, PRN - One Step Medication Only, Starting on 11/04/25 at 0958, Anesthesia Intra-op Given 11/04/2025 9:58 AM EST 4 mg propofol 10 mg/ml (DIPRIVAN) injection Intravenous, PRN - One Step Medication Only, Starting on 11/04/25 at 0951, Anesthesia Intra-op Given 11/04/2025 10:06 AM EST 30 mg Given 11/04/2025 9:54 AM EST 20 mg Given 11/04/2025 9:51 AM EST 150 mg sodium chloride 0.9 % IV infusion Intravenous, Continuous - One Step Medications Only, Starting on 11/04/25 at 0948, Anesthesia Intra-op New Bag 11/04/2025 9:48 AM EST succinylcholine (QUELICIN) injection Intravenous, PRN - One Step Medication Only, Starting on 11/04/25 at 0952, Anesthesia Intra-op Given 11/04/2025 9:52 AM EST 100 mg documented in this encounter Additional Health Concerns Assessment Noted Time PHQ-9 Depression Total Score: 8 09/10/20 11:09 AM EDT documented as of this encounter Care Teams Bean Sorter Relationship Specialty Start Date End Date Dr. Chris Medel MD [address] [place] [address] PCP - General Primary Care 10/25/25 documented as of this encounter
--- OUTSIDE RECORDS SUMMARY | 2025-11-05 10:35 | XMS_ITS | Encounter Summary ---
Author Organization [facility] Address [address] [place] [address] Care Team Providers Care Apiarist Name Role Phone Dr. Chris Medel MD [...] release of HIV test results or diagnoses. [id number] Health Reason for Visit * Auth/Cert (Routine) Specialty Diagnoses / Procedures Referred By Gianna reyes Referred To Contact Transplant Diagnoses Elevated LFTs and bili [facility] [address] [place] [address] Phone: tel: Referral ID Status Reason Start Date Expiration Date Visits Re quested Visits Authorized [id number] 1 1 Encounter Details Date Type Department Care Team (Late st Contact Info) Description 11/05/2025 10:35 AM EST - 11/05/2025 11:02 AM EST Surgery [facility] ENDOSCOPY [address] [place] [address] Nigel Reaves MD [address] [place] [address] LIVER BIOPSY Surgery Details Date/Time Status Location OR Service Patient Class Case Class Case Type Trauma Case? 11/05/2025 10:35 AM Posted ENDOSCOPY E2 Gastroenterology [place] [facility] [place] Procedure Panel 1 Procedure LRB Anes Op Region Wound Class Comments LIVER BIOPSY Right Moderate Sedation N/A Surgeon Surgeon Role Service Panel Nigel Reaves MD Primary Gastroenterology 1 documented in this [...] living in a halfway (including now)? No 11/02/2025 Utilities Answer Date [...] Sign Reading Time Taken Comments Blood Pressure 102/62 11/05/2025 10:45 AM EST Pulse 74 11/05/2025 10:45 AM EST Temperature 36.7 C (98 F) 11/05/2025 10:45 AM EST Respiratory Rate 16 11/05/2025 10:45 AM EST Oxygen Saturation 96% 11/05/2025 10:45 AM EST Inhaled Oxygen Concentration 96% 11/05/2025 1 0:45 AM EST Weight 79.4 kg (175 lb) 11/05/2025 10:45 AM EST Height 170.2 cm (5' 7 ) 11/05/2025 10:45 AM EST Body Mass Index 27.41 11/05/2025 10:45 AM EST documented in this encounter Functional Status * Pain Score Answer Date of Assessment Author 5 11/08/2025 5:09 PM Veronica Smith RN * Discharge Planning Question Answer Date of Assessment Author Pre-Procedure Discharge Plan Patient's Escort Present (Name in Comment) 11/02/2025 12:10 AM Rekha Corrigan RN Responsible Adult Stacy ( ) [phone] in 11/02/2025 12:10 AM Rekha Corrigan RN * HEENT Question Answer Date of Assessment Author SABINO (WDL) X 11/08/2025 2:00 PM Veronica Duron RN R Eye Intact;Impaired vision 11/08/2025 2:00 PM Veronica Smith RN L Eye Intact;Impaired vision 11/08/2025 2:00 PM Veronica Smith RN R Ear Intact 11/08/2025 2:00 PM Veronica Duron RN L Ear Intact 11/08/2025 2:00 PM Veronica Duron RN Nose Intact 11/07/2025 8:01 PM EST Jonathan Lucia RN Nasal Drainage Color YADIRA 11/07/2025 8:[address] Jonathan Bazzi RN Nasal Drainage Consistency YADIRA 11/07/2025 8:01 PM Jonathan Candelario RN Throat Intact 11/07/2025 8:01 PM Jonathan Yeboah RN Tongue Netos & moist 11/07/2025 8:01 PM Jonathan Yeboah RN Voice Deep 11/07/2025 8:01 PM Jonathan Yeboah RN Mucous Membrane(s) Moist;Netos;Intact 11/08/2025 2:00 P M ULISES ToddtorVeronica sheppard RN Teeth Missing teeth 11/08/2025 2:00 PM EST Megan orovaVeronica RN Lips Symmetrical;Intact 11/07/2025 8:01 PM [...] RN Cardiac Rhythm NSR 11/05/2025 11:30 AM Cony Garg Si, RN * Discharge Planning Question Answer Date [...] Vital Signs Stable 11/04/2025 11 :46 AM EST Kenna Carver RN * Pre-Op Check List Question Answer Date of Assessment Author H&P Complete? Yes 11/05/2025 10:46 AM EST Rekha Arredondo, SILVIO * Patient Preparation Question Answer Date of Assessment Author Glasses or Contacts Removed Yes in room 11/05/2025 10:46 AM EST Rekha Servin, SILVIO * Pain Med Side Effects - Required [...] 11/05/2025 1:18 PM EST Kenna Lennon, RN Respiration 2 11/05/2025 1:18 PM EST Kenna Lennon, RN Consciousness 2 11/05/2025 1:18 PM EST Kenna Bradshaw, RN * Weston Coma Scale Question Answer Date of Assessment Author Eye Opening 1 11/08/2025 2:00 PM EST Veronica Kebede RN Best Motor Response 6 11/08/2025 2:00 PM Veronica Curran RN Best Verbal Response 5 11/08/2025 2:[address] Veronica Winter RN Tania Coma Scale Score 12 11/08/2025 [...] External Fixator No 11/08/2025 2:0 0 PM EST Veronica Winter RN * IV Assessment Information Question Answer Date of Assessment Author IV Assessment Information Shift Assessment 11/08/2025 2:00 PM Veronica Smith RN * Wound Assessment Information Question Answer Date of Assessment Author Wound Assessment Information Shift Assessment 11/07/2025 11:00 AM Veronica Smith RN * I&O Assessment Information Question Answer Date of Assessment Author I&O Assessment Information Shift Assessment 11/08/2025 2:00 PM EST Veronica Winter RN * Body Composition Question Answer Date of Assessment Author Weight Change (lbs) 0 11/05/2025 10:45 AM E Rekha Dover RN * Patient Admission Handbook Question Answer Date of Assessment Author Patient handbook provided an d reviewed? No 11/02/2025 6:13 PM EST Myles Albarran RN * Case Status Question Answer Date of Assessment Author Case Status Discharge ready 11/08/2025 1:03 PM EST Maddie Kenny STOCK MANAGER, MERCHANDISE DISPLAYER * Assessment Information Question Answer Date of [...] Sepsis Risk Score 5.5 11/08/2025 5:30 PM [facility] * Post Acute Care Treatment Preferences Question Answer Date of Assessment Author Treatment Preferences Distance 11/08/2025 1:07 PM EST Maddie Jeter, STOCK MANAGER, MERCHANDISE DISPLAYER * Anthropometrics Question Answer Date of Assessment Author BMI (Calculated) 27.4 11/05/2025 10:45 AM Rekha Corrigan, SILVIO * POSS - for High Risk Patients Answer Date of Assessment Author 1 11/07/2025 10:21 PM Jonathan Marcial RN * Height Percent Change Answer Date of Assessment Author 0 11/05/2025 10:45 AM Rekha Corrigan, SILVIO * Interventions Question Answer Date of Assessment Author Date of Service [address] 11/07/2025 12:59 PM Citlaly Potter RN Time [...] 11/02/2025 6:15 PM Myles Carrera RN * [facility] Fall Predictive Model (EFPM) Score Answer Date of Assessment Author 66.3 11/08/2025 4:01 PM EST Marlin Job , Background User * Fall Risk Question Answer Date of Assessment Author Fall Risk Precautions In Place [place] 11/08/2025 2:45 PM Veronica Smith RN Other [...] Dementia 0 11/08/2025 6:01 AM EST Bat Job, Background User [...] Pulse Oximetry Type Continuous 11/05/2025 11:30 AM Cony Mccann RN * Patient Observation Question Answer Date of Assessment Author Patient Observations Pt VSS, with p t, site C/D/I 11/05/2025 1:18 PM Kenna Chu RN * Gastrointestinal Question Answer Date of Assessment [place] Date [address] 11/08/2025 2:00 PM Veronica Duron RN Passing [...] movement 11/08/2025 2:00 PM Veronica Garcia RN * Urine Assessment Question Answer Date [...] RN Mental Status 0 11/08/2025 2:00 PM EST Veronica Patel RN Garcia Fall Risk Score 35 11/08/2025 2:00 PM Veronica Smith RN * Sky Scale Question Answer Date of Assessment Author Sensory Perceptions 4 11/08/2025 2:00 PM Veronica Curran RN Moisture 4 11/08/2025 2:00 PM EST Veronica Kebede RN Activity 4 11/08/2025 2:00 PM Veronica Duron RN Mobility 4 11/08/2025 2:00 PM Veronica Duron RN Nutrition 4 11/08/2025 2:00 PM Veronica Duron RN Friction and Shear 3 11/08/2025 2:00 PM Veronica Smith RN Sky Scale Score 23 11/08/2025 2:00 PM EST Veronica Winter RN * Cough Answer Date of Assessment Author None 11/06/2025 6:30 PM EST Bj Sy RN * Cardiac Question Answer Date of Assessment Author Cardiac (L) WD 11/08/2025 2:00 PM Veronica Garcia RN Telemetry/Manager Sound No 11/08/2025 2:00 PM Veronica Smith RN [...] 8:01 PM Jonathan Candelario RN * Respiratory (WD) Answer Date of Assessment Author WDL 11/08/2025 2:00 PM Veronica Smith RN * Vitals Question Answer Date of Assessment Author BP 133/59 11/08/2025 12:32 PM EST Chelsea Olson Temp 98.8 11/08/2025 12:32 PM EST Chelsea Olson Pulse 67 11/08/2025 12:32 PM EST Chelsea Olson SpO2 96 11/08/2025 12:32 PM Chelsea Guevara O2 Flow Rate (L/min) 0 11/05/2025 4:09 PM Tamar Dawn O2 Device None (Room air) 11/08/2025 12:32 PM Chelsea Sapp * Height and Weight Question Answer Date [...] In the past 12 months has the [employer], gas, oil, or water [employer] threatened to shut off services in [...] living in a halfway (including now)? No 11/02/2025 6:18 PM Myles [...] Myles Carrera RN Unplanned Weight Gain in [facility] Three Months 2 11/02/2025 6:19 PM Myles Carrera RN Unplanned Weight Loss in [facility] Three Months 2 11/02/2025 6:19 PM Myles [...] Requests During Hospitalization No 11/04/2025 9:32 AM EST Kenna Carver RN Spiritual Requests During Hospitalization No 11/04/2025 9:32 AM EST Kenna Carver RN * Stool Assessment Question Answer Date of Assessment Author Stool consistency: Braxton Stool Chart Type 7: Watery, no solid pieces, entirely liquid 11/04/2025 9:00 AM EST Jolene Bell RN Stool Color [facility] 11/07/2025 8:01 PM EST Jonathan Lucia RN Stool Amount YADIRA 11/07/2025 8:01 PM Jonathan Yeboah RN Stool Appearance [facility] 11/07/2025 8:01 PM EST Jonathan Regan RN * Genitourinary Question Answer Date of Assessment Author Genitourinary ([facility]) [facility] 11/08/2025 2:00 PM Veronica Curran RN * Neurological Question Answer Date of Assessment Author Neuro ([facility]) [facility] 11/08/2025 2:00 PM Veronica Duron RN Neuro Additional Assessments Weston Coma Scale 11/08/2025 2:00 PM Veronica Smith RN * Patient Belongings Question Answer Date of Assessment Author Does The Patient Have Belongings Yes 11/02/20 6:25 PM EST Myles Albarran RN * Safe Environment Question Answer Date of Assessment Author Patient Monitor N/A 11/05/2025 9:57 PM EST Cl ark, Kjersten, RN Safety Equipment at Bedside None 11/04/2025 [...] of Assistance Independent 11/06/2025 6:30 PM Bj Fitzpatrick RN CHG Hygiene Wipes 11/04/2025 9:00 AM Jolene [...] of Assessment Author Time of last liquid 91308 11/04/2025 9:14 AM Kenna Laura RN Date of last liquid 61818 11/05/2025 10:46 AM Rekha Juarez RN Date of last solid 90001 11/05/2025 10:46 AM Rekha Cuenca RN * Cipriano Score Answer Date of Assessment Author 10 11/05/2025 1:18 PM Kenna Chu RN * Vital Signs Question Answer Date of Assessment Author Heart Rhythm SR 11/04/2025 12:00 PM Kenna Cabezas RN * [place]-Suicide Severity Rating Scale (C-SSR) Part 1 Question Answer Date of Assessment Author In the past month, have you wished you were or wished you could go to sleep and not wake up? No 11/02/2025 6:14 PM Myles Carrera RN In the past month, have you actually had any thoughts of killing yourself? No 11/02/2025 6:14 PM Myles Carrera RN * [place]-Suicide Severity Rating Scale (C-SSR) Part 2 Question [...] of Assessment Author 37.1 11/08/2025 12:32 PM EST Enriqueta Ulloa * Comprehensive Pain Assessment (with every routine [...] 11/08/2025 1 :07 PM Maddie Burns MSW, MERCHANDISE DISPLAYER * Transportation Information Question Answer Date of Assessment Author Transfer Mode/Level of Care Family 11/08/2025 1: 07 PM Maddie Burns MSW, MERCHANDISE DISPLAYER * Patient/Family Involvement Question Answer Date of Assessment Author Core Measure-If this is a stroke patient and Rehab Services were recommended did the patient refuse? No 11/08/2025 1:07 PM Maddie Burns MSW, MERCHANDISE DISPLAYER /CM Name and phone # Maddie Leonsrael STOCK MANAGER, MERCHANDISE DISPLAYER [phone] 11/08/2025 1:07 PM Maddie Burns STOCK MANAGER, MERCHANDISE DISPLAYER Family Member Notified at Discharge Yes 11/08/2025 1:07 PM Maddie Burns STOCK MANAGER, MERCHANDISE DISPLAYER Family Member Name and Relationship Notified at Discharge Stacy Serrano-spouse 11/08/2025 1:07 PM Maddie Burns STOCK MANAGER, MERCHANDISE DISPLAYER Family Contact Number [phone] 11/08/2025 1:07 PM Maddie Burns STOCK MANAGER, MERCHANDISE DISPLAYER Role of the Physical Therapy Technician Explained Yes 11/08/2025 1:07 PM Maddie Burns MSW, MERCHANDISE DISPLAYER Role of the Life Insurance Sales Explained Yes 11/08/2025 1:07 PM Maddie Burns MSW, MERCHANDISE DISPLAYER Patient/Family Informed of Discharge Plan Yes 11/08/2025 1:07 PM Maddie Burns MSW, MERCHANDISE DISPLAYER Plan Reviewed With Patient, Family, or Significant Other Yes 11/08/2025 1:07 PM EST Steffany, Jackieh, STOCK MANAGER, MERCHANDISE DISPLAYER Patient or family are unable or unavailable to participate in patient's discharge plan No 11/08/2025 1:07 PM EST Steffany, Tsrichardorah, STOCK MANAGER, MERCHANDISE DISPLAYER Patient and or family are aware and in agreement with the discharge plan Yes 11/08/2025 1:07 PM EST Steffany, Jackieh, STOCK MANAGER, MERCHANDISE DISPLAYER Plan reviewed with MD and other members of the health care team Yes 11/08/2025 1:07 PM EST Steffany, Tstoh, STOCK MANAGER, MERCHANDISE DISPLAYER Care Plan Completed Yes 11/08/2025 1:07 PM ES Trina Jeter, Jackieh, STOCK MANAGER, MERCHANDISE DISPLAYER * LACE+ Score Answer Date of Assessment Author 79 11/08/2025 5:43 PM Wicho Restrepo * Pain Score Answer Date of Assessment Author 5 11/08/2025 5:09 PM Veronica Smith, SILVIO * P.O. Intake Question Answer Date of Assessment Author Percent Meals Eaten (%) 100 11/08/2025 2:00 P M Veronica Smith, SIVLIO * Patient's Post-Discharge Goals Question Answer Date of Assessment Author Patient's Post-Discharge goals Get stronger at home 11/08/2025 1:07 PM ULISES Steffany, Maddie, STOCK MANAGER, MERCHANDISE DISPLAYER * Calculated Energy Needs Question Answer Date of Assessment Author Marshall St Jeor Equation (RMR) 1,542.42 11/05/2025 10:45 AM Rekha Corrigan, SILVIO Fluid Requirements (mL) 2,381.37 11/05/2025 10:45 AM Rekha Corrigan, RN * Anthropometrics Question Answer Date of Assessment Author BMI (Calculated) 27.4 11/05/2025 10:45 AM Rekha Corrigan, RN * Community Services at Discharge Question Answer Date of Assessment Author Home Health Care Name/Phone # post discharge [facility] [phone] 11/08/2025 1:07 PM ULISES Jeter, Maddie, STOCK MANAGER, MERCHANDISE DISPLAYER Home Health Services Types at Discharge PT/OT/PHOTOGRAPHERS' MODEL;[facility] 11/08/2025 1:07 PM ULISES Jeter DarrianMADHAV osborn, TONYA Community Services at Home post discharge Home Health Care 11/08/2025 1:07 PM ULISES Jeter Darrianto child MSW, MERCHANDISE DISPLAYER Home Health Services agency list provided No, patient would like to continue services with previous provider 11/08/2025 1:07 PM Maddie Burns MSW, TONYA * Facial Expression Answer Date of Assessment [...] 2:00 PM Veronica Smith RN Translation to [facility] 8 11/08/2025 2:00 PM EST Veronica Winter RN * Mobility: AM-PAC/-[facility] Question Answer Date of Assessment Author [facility] Score - Performed/Achieved 7 Walks 25 feet or more 11/06/2025 6:30 PM Bj Gutierrez RN -[facility] Score - Performed/Achieved Goal (Y/N) No 11/04/2025 9:00 AM EST Jolene Bell RN Early Mobility/Exercise Safety Screen (Med/Surg) Proceed with mobilization - No exclusion criteria met 11/06/2025 6:30 PM Bj Gutierrez RN Goal -[facility] 8 Walks 250 feet or more 11/06/2025 6:30 PM EST Bj Sy RN * Gastrointestinal Question Answer Date of Assessment [place] Date [address] 11/08/2025 2:00 PM EST Veronica Kebede RN [...] members 11/02/2025 6:18 PM Myles Carrera RN * Mobility Question Answer Date of Assessment Author Activity Lying in bed 11/08/2025 2:00 PM Veronica Duron RN Ambulation Response Tolerated well 11/04/2025 11:20 PM Mairza Pastor RN Assistive Device None 11/08/2025 2:00 PM Veronica Bar RN Repositioned Turns self 11/08/2025 2:00 PM Veronica Duron RN Transport Method Wheelchair 11/05/2025 9:57 PM Erica Blanton RN Level of Assistance Independent 11/08/2025 2:00 PM Veronica Serra RN Head of Bed Self regulated 11/08/2025 2:00 PM Veronica Lundberg RN Heels/Feet Foot of bed elevated 11/08/2025 2:00 PM Veronica Serra RN Range of Motion Type Active 11/05/2025 9:57 PM E Erica Benson RN Positioning Frequency Able to turn self [...] 2 11/02/2025 6:26 PM Myles Carrera RN PHOTOGRAPHERS' MODEL Evaluation Needed 2 11/02/2025 6:26 PM Myles [...] 10: 46 AM Rekha Corrigan RN * [place]-Suicide Severity Rating Scale (C-SSR) Part 1 Question [...] ETCO2 33 11/05/2025 11:30 AM EST Beverleyedmund currieCony RN Cardiac Rhythm NSR 11/05/2025 11:30 AM EST José Luis conradCony RN * Tania Coma Scale Question Answer [...] Author Skin Condition/Temp Warm;Dry 11/08/2025 2:00 PM Veronica Curran RN documented in this encounter Discharge Summaries * MADHAV Carlos LSW - 11/08/2025 2:11 PM EST [facility] Care Management Discharge Summary Patient name: David Serrano Patient : 1960 Age: 65 y.o. Gender: male Patient emergency contact: Extended Emergency Contact Information Primary Emergency Contact: Stacy Serrano Address: [address] [place] [address] Mobile Relation: Spouse Attending provider: Vani Winkler [...] at Discharge: Stacy Serrano-spouse Family Contact Number: [phone] Plan reviewed with and other members of [...] # post discharge: [facility] [phone] Home Health Services Types at Discharge: PT/OT/PHOTOGRAPHERS' MODEL, [facility] TONYA Aguillon [phone] * Breonna Villa MD - 11/07/2025 12:52 PM EST Subspecialty Follow-up Appointment Chart Note Service: Liver Transplant Subspecialty Follow-up Disposition: The patient requires subspecialty follow-up as noted below: Note: This information is for [facility] Scheduling use only. It is not the responsibility of the primaryinpatient service to schedule this appointment. Visit type:Faculty Clinic Name of provider to schedule with: Dr. Zimmerman Timin-2 weeks of discharge Location: [facility] to overbook if there are no open [...] kept under 2 gm/day. Please discuss withyour breastfeeding program coordinator if you have any question about appropriate dose to take. Other Instructions: Call post-liver transplant clinic with questions [phone] or call [facility] at [phone] and ask for the liver accounts payable payroll coordinator station cashier if you experience any of the following: [...] Date and time as instructed by your accounts payable payroll coordinator in liver transplant clinic in [facility], 3rd floor or Video Visit. 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 Post op course [...] medrol on 11/05 and 250 mg on 12/23. LFTs down trending. Feeling better this AM [...] 11/06/25 0809 methylprednisolone 250 mg Q24H LAISHA Heranndez 250 mg at 11/06/25 1159 Followed by [...] Bowen Gonzalez Jr., MD, MACP Professor & Halfway House Counselor, Classical Hematology Arturo Penaloza MD Endowed Chair [...] 4.6 CL 106 106 103 CO2 23 21 BUN 19 20 21 CREATININE [...] BID7 Continuous Infusions: electrolyte 75 mL/hr (11/05/25 5964) PRN Meds: calcium carbonate, dextrose 10% in [...] Lane Troy MD Transplant and Hepatobiliary Surgery [phone] (cell) * Lore Nevarez CNP - 11/06/2025 7:47 AM EST GI FOLLOW UP NOTE ID: [id number] David Serrano 65 yo male S/p ERCP [...] Dioxide (CO2) 21 - 33 mmol/L 23 23 21 Anion Gap 3 - [...] with advanced GI attending, Dr. Brian Nevarez MORTGAGE ANALYST Pancreas/Biliary team * LAISHA Ferreira - 11/05/2025 [...] 4.1 CL 105 106 106 CO2 BUN 20 CREATININE 1.00 1.04 1.20 CALCIUM 7.9* [...] Lane Troy MD Transplant and Hepatobiliary Surgery [phone] (cell) * Lore Nevarez, [employer] - 11/05/2025 8:25 AM EST GI FOLLOW UP NOTE ID: [id number] David Serrano 65 yo male S/p ERCP [...] 11/02/2025 Transplant date: s/p OLT 10/17/25 SUBJECTIVE ANA DE LEON. ERCP today OBJECTIVE Vitals: Temp: [97.8 ??F [...] 8.5* PLT 220 240 223 Recent Labs 12/210711/03/25 0646 11/04/25 0339 NA 132* 133 136 K 4.6 3.9 4.2 CL 103 105 106 CO2 22 21 23 BUN 29* 25 19 CREATININE 1.17 1.00 1.04 CALCIUM 7.8* 7.9* 7.9* MG 1.3* 1.6 1.7 PHOS 3.4 3.1 3.4 Recent Labs 11/02/25210711/03/2546 11/04/25 0339 AST 37 47* 40* ALT [...] 2:07 PM EST Associated attestation - Vani Wiknler MD - 11/04/2025 2:07 PM EST I [...] Winkler MD PhD Transplant Surgery * Keith Grimm CNP - 11/03/2025 9:00 AM EST [...] PHOS 3.1 3.4 3.1 Recent Labs 11/01/25 0711/02/25 2108 11/03/25 0646 AST 87 37 47* ALT [...] Size (Gauge): 20 G Orientation: Anterior;Right Location: Forearm Local Anesthetic: None Inserted by: SILVIO Gomezrecreational vehicle repairer Insertion Method: Ultrasound Guided Insertion attempts: 1 [...] Pinzon MD - 11/05/2025 10:08 AM EST [facility] PRE-SEDATION ASSESSMENT, HISTORY & PHYSICAL Date: [...] Reid MD - 11/04/2025 8:06 AM EST [facility] PRE-SEDATION ASSESSMENT, HISTORY & PHYSICAL Date: [...] TRANSPLANT LIVER; Surgeon: Vani Winkler MD; Location: [facility]; Service: Transplant; Laterality: N/A; Medications [...] History and Physical Patient: David Serrano CSN: [id number] Requesting Physician: Dr. Winkler History CC: hyperbilirubinemia [...] TRANSPLANT LIVER; Surgeon: Vani Winkler MD; Location: [facility]; Service: Transplant; Laterality: N/A; Medications: [...] Low Risk (06/15/2025) Received from [facility] Overall Financial Resource Strain (CARDIA) How hard [...] Activity: Inactive (06/15/2025) Received from [facility] Exercise Vital Sign On average, how many days per week do you engage in moderate to strenuous exercise (like a brisk walk)?: 0 days On average, how many minutes do you engage in exercise at this level?: 0 min Stress: No Stress Concern Present (06/15/2025) Received from [facility] [employer] [place] [employer] - Occupational Stress Questionnaire Do you feel stress - tense, restless, nervous, or anxious, or unable to sleep at night because yourmind is troubled all the time - these days?: Only a little Social Connections: Socially Integrated (06/15/2025) Received from [facility] Social Connection and Isolation Panel In a typical week, how many times do you talk on the phone with family, friends, or neighbors?: More than three times a week How often do you get together with friends or relatives?: More than three times a week How often do you attend hoahaoism or mandaeism services?: More than 4 times [...] mg daily S[facility] Floor ASPEN PARR MD [facility] Surgery Cosigned by Vani Winkler MD at [...] Reaves MD - 11/05/2025 11:35 AM EST [id number] Procedure Date: 11/05/2025 11:35 AM Patient Name: David Serrano Date of : 1960 Admit Type: Inpatient Age: 65 Gender: Male Note Status: Finalized Attending MD: Nigel Reaves MD, [id number] Procedure: Liver biopsy Indications: Abnormal Liver enzymes [...] by the physician, the nurse and the plasma center technician in the procedure room. Mental Status [...] gauge in diameter was made with the Avosoftince gun using ultrasound to jamie the site. [...] referring physician. Procedure Code(s): --- Professional --- 53319, GC, Biopsy of liver, needle; percutaneous 10506, GC, Ultrasonic guidance for needle placement (eg, biopsy, aspiration, injection, localization device), imaging supervision and interpretation 02078, GC, Moderate sedation services provided by the same physician or other qualified health care director performing the diagnostic or therapeutic service that the sedation supports, requiring the presence of an independent trained observer to assist in the monitoring of the patient's level of consciousness and physiological status; initial 15 minutes of intraservice time, patient age 5 years or older Diagnosis Code(s): --- Professional --- R74.9, Abnormal serum enzyme level, unspecified CPT copyright 2022 [employer]. All rights reserved. The codes documented in this report are preliminary and upon engineering associate review may be revised to meet current compliance requirements. Attending Participation: I was present and participated during the entire procedure, including non-carcamo portions. Nigel Reaves MD Nigel Reaves MD 11/05/2025 2:47:17 PM This report has been signed electronically.MD Sherley Ross MD Pedro Pinzon MD 11/05/2025 11:40:[address] [place] [address], [facility] * Nigel Reaves MD - 11/05/2025 11:23 AM EST LIVER BIOPSY Brief Op Note David Serrano 11/02/2025 - 11/05/2025 Pre-op Diagnosis: Hyperbilirubinemia [E80.6] Post-op Diagnosis: Elevated LFTs Procedure(s): LIVER BIOPSY (percutaneous), 1 pass with 16 G needle using Ultrasound to jamie site Surgeon(s): Nigel Reaves MD Anesthesia: Moderate Sedation Staff: Fellow: Pedro Pinzon MD Endoscopy Nurse: Manohar Brown RN; Cony Lu RN Organizational Development Specialist: Jeffrydyana Mata Estimated Blood Loss: Minimal Specimens: Specimens ID Description Commments Type Source Tests Collected By Collected At A liver Tissue Liver SURGICAL PATHOLOGY EXAM Nigel Reaves MD 11/05/25 1121 Drains: There were no complications unless listed below. NIGEL REAVES MD Date: 11/05/2025 Time: 11:32 AM * uRbio Reid MD - 11/04/2025 9:55 AM EST [...] alcohol use. He was seen in endoscopy station cashier to his procedure. Physical exam is notable [...] Bowen Gonzalez Jr., MD, MACP Professor & Halfway House Counselor, Classical Hematology Arturo Penaloza MD Endowed Chair in Bleeding & Clotting * Breonna Villa MD - 11/05/2025 9:34 AM ESTAssociated Order(s): IP CONSULT TO LIVER HEPATOLOGY INITIAL CONSULT NOTE Consulted by: Vani Winkler MD Consult Question: Hyperbilirubinemia History of Present Illness: Davdi Serrano is a 65 y.o. with pmhx [...] TRANSPLANT LIVER; Surgeon: Vani Winkler MD; Location: [facility]; Service: Transplant; Laterality: N/A; No [...] status. Matheus Bonilla MD * Viv Ashby, STOCK MANAGER - 11/03/2025 2:08 PM EST [employer] Case Management/Social Work Department Brief Assessment Re-Admission within 30 days Planned or unplanned? Unplanned If planned: Reason? If unplanned: Reason? Hyperbilirubinemia Discuss with patient any barriers to prevent readmission? N/A Patient Information Admission diagnosis: Elevated LFTs and bili Demographic verified and updated as needed Support Systems Designated decision maker (POA or Next of Kin): Stacy Serrano Phone #: [phone] Relationship: Spouse Living Arrangements Prior to Hospitalization [...] Patient recently discharged on 10/22 with [facility] through [email or web address] [facility] ([phone]) for PT/OT and SN (lab draws). Per previous assessment, Patient is a 65 year old male, and living with spouse in a home in [place], [place]. Patient reports ~2 steps into residence and 0 inside residence. Patient reports having 2 children Lan Serrano ([phone]) and Gloria Banegas ([phone]). Patient denies any concerns for safety or abuse at residence. Patient reported independencewith ADLs. Community Resources Prior to Hospitalization Home Health Care Services and Phone #: [employer] [facility] ([phone]) Home Respiratory Services: None Provider and Phone # Home O2: Baseline Liter Flow: BIPAP/CPAP: Nebulizer: Durable Medical Equipment: Cane available but does not use Discharge Plan Anticipated discharge plan: Pending clinical course Company Name(s) and Phone #: [employer] [facility] ([phone]) Anticipated discharge date: Pending clinical course Transportation [...] interest(s) are disclosed as appropriate. MADHAV VERDIN, MERCHANDISE DISPLAYER Inpatient Physical Therapy Technician Care Management Acute Care Surgery, Surgical Oncology, Colorectal Surgery, Thoracic, Vascular, Gynecology, Gynecology/Oncology, Breast, and Pulmonology Can be reached at [phone] or over [employer] Secure Chat * Lili Rodriguez RN - 11/03/2025 11:19 AM ESTAssociated Order(s): IP Consult to [facility] IP Consult to [facility] Consult performed by: Llii Rodriguez RN Consult ordered by: Vani Winkler [...] Patient will remain free of falls Goal: [place] Fall Precautions Outcome: Progressing * Care Coordination - Monika Cheng - 11/08/2025 2:25 PM EST OSE[facility] sent pt [facility] and d[facility] summary to [facility] fax [phone]. Monika Cheng [employer] H[employer] Developer R And D Lab Technician Care Management Services [phone] * Home Health Care Note - Zeferino Pyle MD - 11/08/2025 1:45 PM EST Images from the original note were not included. REFERRAL FOR HOME HEALTH SERVICES FORM Patient name: David Serrano Patient : 1960 Age: 65 y.o. Gender: male SSN: [id number] Address: [address] [place] [address] [place] [address] Phone number: [phone] Patient emergency contact: Extended Emergency Contact Information Primary Emergency Contact: Stacy Serrano [address]: [address] [place], [place] [address] [address] [place] [address] Mobile Relation: Spouse Date of admission: 11/02/2025 Date of discharge: 11/08/2025 Attending provider: Vani Winkler MD Primary care physician: Dr. Chris Medel MD Code status: Prior Allergies: Allergies[1] Insurance Information Insurance Information [employer]IL[employer] Phone: -- Subscriber: David Serrano Subscriber#: [id number] Group#: [id number] Precert#: -- Authorization#: [id number] Effective Date: -- Diagnoses Present on Admission Primary Diagnosis: <principal problem not specified> Discharge Diagnosis : There are no hospital problems to display for this patient. Prognosis: good Rehabilitation potential: good Diet Diet/Nutrition Orders Diet Regular(7) Frequency: Effective Now Number of Occurrences: Until Specified Order Questions: Suicide/Behavior Risk Modification? No Regular Diet Services Required [facility] Physical Therapy: Occupational Therapy: Weight bearing status: [...] scale: Blood glucose 150-199 mg/dL =1units, Blood fangprx205-711 mg/dL =2 units, Blood glucose 250-299 mg/dL [...] Your Medications These medications were sent to [facility] [address] [place] [id number] Hours: Wednesday - Wednesday: 8:00AM - 6:00PM atovaquone 750 mg/5 mL suspension Discharge Specific Orders Discharge specific orders: LAB DRAWS: Please collect CBC w/diff, renal function panel, hepatic function panel, and tacrolimus level (prior to morning dose of tacrolimus) every Wed/. Fax results to liver transplant clinic at [phone]. NURSE VISIT: Please check vitals and assess/monitor [...] effort and are for medical reasons or mandaeism services or infrequently or short duration when for other reasons) due to extensive needs and high risk of infection it would be a taxing effort to receive outpatient services. My signature below is to certify that this patient is under my care and that I, or nurse practitioner, or a physician insurance assistant working with me, had a [id number] encounter with this is patient on: 11/08/2025 Follow-up Appointments and Post Hospital Discharge Physician Name Future Appointments Date Time Provider Department Center 11/13/2025 8:20 AM [facility] 11/13/2025 11:30 AM [facility] 11/27/2025 8:00 AM LAISHA Camarillo [facility] No follow-up provider specified. Discharging Physician Signature and Credentials Discharging Physician: Electronically signed by ZEFERINO PYLE MD 11/08/2025, 1:42 PM Physician to follow up Information PCP: Dr. Chris Medel MD PCP address: [address] [place], [place] [address] PCP phone number: [phone] PCP fax number: [phone] Physicians to follow are liver transplant surgeons. For any questions, they and the liver transplant nurse coordinators may be contacted through the liver transplant clinic at [phone]. Fax results to [phone]. Life Insurance Sales and Credentials Provider/Company Name and Contact Number: Community Services at Discharge Community Services at Home post discharge: Home Health [facility] Name/Phone # post discharge: [facility] [phone] Home Health Services Types at Discharge: PT/OT/PHOTOGRAPHERS' MODEL, [facility] Life [employer] Sales Name and Telephone Number: Maddie Jeter MADHAV, MERCHANDISE DISPLAYER [phone] [1] Allergies Allergen Reactions Lisinopril Other (See Comments) * Care Coordination - Citlaly Zimmerman RN - 11/07/2025 1:00 PM EST [facility] Case Management/Social Work Department Progress Note Patient [...] PCP: Dr. Chris Medel MD Home Pharmacy: [facility] - [place], [place] - [address] [place] [address] [facility] [address] [facility] [address] [facility] [address] [facility] [address] [facility] [address] [facility] [address] Medical Insurance Coverage: Payor: ANTHEM / Plan: BLUE ACCESS / Product Type: PPO / Other Pertinent Information innersole maker met with interdisciplinary team for rounding/received report, and reviewed chart. Per team, patient is not medically ready for discharge. Report received from Transplant Team: Pt started on rejection treatment. Anticipate medical readiness over the weekend. Patient will be a resumption of care with [facility] ([phone]) [facility] able to resume care on 11/13. [...] Patient will remain free of falls Goal: [place] Fall Precautions Outcome: Progressing Problem: Daily Care Goal: Daily care needs are met Description: Assess and monitor ability to perform self care and identify potential discharge needs. Outcome: Progressing * Plan of Care - Anum Moralse RN - 11/06/2025 10:01 PM EST Problem: [...] Patient will remain free of falls Goal: [place] Fall Precautions Outcome: Progressing Problem: Daily Care [...] Patient will remain free of falls Goal: [place] Fall Precautions Outcome: Progressing Problem: Daily Care Goal: Daily care needs are met Description: Assess and monitor ability to perform self care and identify potential discharge needs. Outcome: Progressing * Care Coordination - Citlaly Zimmerman RN - 11/06/2025 11:57 AM EST [facility] Case Management/Social Work Department Progress Note Patient [...] PCP: Dr. Chris Medel MD Home Pharmacy: [facility] - [place] [facility] [address] [facility] [address] [facility] [address] [place] [address] [facility] [address] [facility] [address] [facility] [address] [facility] [address] [facility] [address] [facility] [address] [facility] [address] Medical Insurance Coverage: Payor: ANTHEM / Plan: BLUE ACCESS / Product Type: PPO / Other Pertinent Information RN/SAJAN received call from Carlton with [facility] ([phone]). Carlton reported [facility] if pt is discharged tomorrow will not be able to restart services until 11/13/2025. RN/CM secured [facility] Transplant Team notifiy Team [facility] unable to restart services until 11/13 dueto staff constraints. UPDATE: innersole maker met with interdisciplinary team for rounding/received report, [...] Patient will remain free of falls Goal: [place] Fall Precautions Outcome: Progressing Problem: Daily Care [...] Zimmerman RN - 11/05/2025 12:40 PM EST [facility] Case Management/Social Work Department Progress Note Patient [...] PCP: Dr. Chris Medel MD Home Pharmacy: [facility] - [place], [place] - [address] [facility] [address] [place] [address] [facility] [address] [facility] [address] [facility] [address] [facility] [address] [facility] [address] [facility] [address] [facility] [address] Medical Insurance Coverage: Payor: ANTHEM / Plan: BLUE ACCESS / Product Type: PPO / Other Pertinent Information innersole maker met with interdisciplinary team for rounding/received report, and reviewed chart. Per team, patient is not medically ready for discharge. Report received by Transplant Team: Liver Biopsy possible today, Hemology consulted, receiving 1 unit of blood today. Anticipate medical readiness Wednesday with resumption of HHC (SN for labs and PT/OT). Pt has [facility]([phone]) SN for labs and PT/OT. Resumption referral sent. Discharge Plan Anticipated discharge plan: Home with [facility] Anticipated discharge date: 11/07/2025 CM/SW will continue to follow and remain available for discharge planning needs. CITLALY ZIMMERMAN RN/SAJAN * Plan of Care - Noy Torres [...] Patient will remain free of falls Goal: [place] Fall Precautions Outcome: Progressing Problem: Daily Care [...] Patient will remain free of falls Goal: [place] Fall Precautions Outcome: Progressing Problem: Daily Care [...] Patient will remain free of falls Goal: [place] Fall Precautions Outcome: Progressing Problem: Daily Care [...] Patient will remain free of falls Goal: [place] Fall Precautions Outcome: Progressing Problem: Daily Care [...] Routine 11/05/2025 11:35 AM EST LIVER BIOPSY [facility] Diagnostic Procedure 11/05/2025 11:13 [...] Encounter for pre-transplant evaluation for liver transplant POC GLU MONITORING DEVICE Routine 11/04/2025 9:32 [...] Routine 11/03/2025 11:47 AM EST US DUPLEX [id number] COMPLETE STAT 11/03/2025 10:05 AM EST US [...] 11/03/2025 2:51 AM EST UPPER RESPIRATORY VIRAL/BACTERIAL PANEL-POINTER HELPER ONLY Routine 11/03/2025 2:51 AM EST URINALYSIS [...] CULTURE-PERIPHERAL STAT 11/02/2025 9:13 PM EST FUNGITELL [id number] Routine 11/02/2025 9:08 PM EST CRYPTOCOCCUS ANTIGEN, [...] - 100 mg/dL 11/08/2025 12:35 PM EST [facility] Blood 11/08/2025 12:3 4 PM EST 11/08/2025 12:35 PM EST Vani Winkler MD POINT OF CARE TEST ORDERABLE S Final Result [facility] [address] * (ABNORMAL) POC Glucose Monitoring Device (11/08/2025 7:19 AM EST) POC Glucose Monitoring Device 143(H) 70 - 100 mg/dL 11/08/2025 7:20 AM EST [facility] Blood 11/08/2025 7:19 AM EST 11/08/2025 7:20 AM EST Vani Winkler MD POINT OF CARE TEST ORDERABLE S Final Result Performing Organization Address [facility] Co de Phone Number [facility] [address] [facility]. [address] * (ABNORMAL) Haptoglobin (11/08/2025 6:15 AM EST) Haptoglobin <30(L) 44 - 215 mg/dL 11/08/2025 8:18 AM EST [facility] Serum 11/08/2025 6:15 AM EST 11/08/2025 6:21 AM EST Keith Novak MD LAB BLOOD ORDERABLES Fi nal Result Performing Organization Address [facility] Co de Phone Number [facility] [address] * (ABNORMAL) Lactate Dehydrogenase (11/08/2025 6:15 AM EST) LD 344(H) 110 - 270 U/L 11/08/2025 6:56 AM EST [facility] Plasma 11/08/2025 6:15 AM EST 11/08/2025 6:20 AM EST Keith Novak MD LAB BLOOD ORDERABLES Fi nal Result Performing Organization Address City/[facility]/ZIP Co de Phone Number [facility] [address] * Tacrolimus level (11/08/2025 6:15 AM EST) Tacrolimus (LC-MS) 10.1 3.0 - 15.0 ng/mL 11/08/2025 11:07 AM EST [facility] Comment:Performed via liquid chromatography tandem mass spectrometry. Detection limit: 1 ng/mL. Individual target concentrations may vary due to target organ and time after transplant. This test has been developed and its performance characteristics determined by [facility] which is certified under the Clinical [...] Resul t [facility] [address] [place] [address] * Phosphorus (11/08/2025 6:15 AM EST) Phosphorus 3.5 2.1 - 4.7 mg/dL 11/08/2025 6:56 AM EST [facility] Plasma 11/08/2025 6:15 AM EST 11/08/2025 6:20 AM EST Aspen Parr MD LAB BLOOD ORDERABLES Final Resul t [facility] [address] [place] [address] * Magnesium (11/08/2025 6:15 AM EST) Magnesium 1.6 1.5 - 2.5 mg/dL 11/08/2025 6:56 AM EST [facility] Plasma 11/08/2025 6:15 AM EST 11/08/2025 6:20 AM EST us Aspen Parr MD LAB BLOOD ORDERABLES Final Resul t [facility] [address] * (ABNORMAL) CBC (11/08/2025 6:15 AM EST) WBC 10.0 3.8 - 10.8 10E3/uL 11/08/2025 6:27 AM EST [facility] RBC 2.48(L) 4.20 - 5.80 10E6/uL 11/08/2025 6:27 AM EST [facility] Hemoglobin 8.5(L) 13.2 - 17.1 g/dL 11/08/2025 6:27 AM EST [facility] Hematocrit 24.1(L) 38.5 - 50.0 % 11/08/2025 6:27 AM EST [facility] MCV 97.2 80.0 - 100.0 fL 11/08/2025 6:27 AM EST [facility] MCH 34.4(H) 27.0 - 33.0 pg 11/08/2025 6:27 AM EST [facility] MCHC 35.4 32.0 - 36.0 g/dL 11/08/2025 6:27 AM EST [facility] RDW 24.0(H) 11.0 - 15.0 % 11/08/2025 6:27 AM EST [facility] Platelets 153 140 - 400 10E3/uL 11/08/2025 6:27 AM EST [facility] MPV 8.0 7.5 - 11.5 fL 11/08/2025 6:27 AM EST [facility] Whole Blood 11/08/2025 6:15 AM EST 11/08/2025 6:21 AM EST us Aspen Parr MD LAB BLOOD ORDERABLES Final Resul t [facility] [address] * (ABNORMAL) Basic metabolic panel (11/08/2025 6:15 AM EST) Sodium 136 133 - 146 mmol/L 11/08/2025 6:56 AM [facility] Potassium 3.9 3.5 - 5.3 mmol/L 11/08/2025 6:56 AM [facility] Chloride 105 98 - 110 mmol/L 11/08/2025 6:56 AM [facility] CO2 22 21 - 33 mmol/L 11/08/2025 6:56 AM [facility] Comment:High lactate dehydro genase concentrations in patient samples may cause falsely increased bicarbonate results. If markedly elevated LDH is observed or suspected, please assess results in conjunction with patient`s clinical presentation. In cases of discrepant results, consider evaluating CO2 in with a blood gas order. Anion Gap 9 3 - 16 mmol/L 11/08/2025 6:56 AM [facility] BUN 21 7 - 25 mg/dL 11/08/2025 6:56 AM [facility] Creatinine 1.03 0.60 - 1.30 mg/dL 11/08/2025 6:56 AM [facility] Glucose 143(H) 70 - 100 mg/dL 11/08/2025 6:56 AM [facility] Calcium 7.9(L) 8.6 - 10.3 mg/dL 11/08/2025 6:56 AM [facility] Osmolality, Calculated 287 278 - 305 mOsm/kg 11/08/2025 6:56 AM [facility] EGFR 81 11/08/2025 6:56 AM [facility] Comment:As of 2022, the estimated GFR [...] ORDERABLES Final Resul t Performing Organization Address [facility] Co de Phone Number [facility] [address] [facility]. [address] * (ABNORMAL) Hepatic Function Panel (11/08/2025 6:15 AM EST) Total Bilirubin 5.0(H) 0.0 - 1.5 mg/dL 11/08/2025 6:56 AM EST [facility] Bilirubin, Direct 2.51(H) 0.00 - 0.40 mg/dL 11/08/2025 6:56 AM EST [facility] AST 26 13 - 39 U/L 11/08/2025 6:56 AM EST [facility] ALT 54(H) 7 - 52 U/L 11/08/2025 6:56 AM EST [facility] Alkaline Phosphatase 364(H) 36 - 125 U/L 11/08/2025 6:56 AM EST [facility] Total Protein 5.6(L) 6.4 - 8.9 g/dL 11/08/2025 6:56 AM EST [facility] Albumin 3.0(L) 3.5 - 5.7 g/dL 11/08/2025 6:56 AM EST [facility] Bilirubin, Indirect 2.49(H) 0.00 - 1.10 mg/dL 11/08/2025 6:56 AM EST [facility] Plasma 11/08/2025 6:15 AM EST 11/08/2025 6:20 AM EST Aspen Parr MD LAB BLOOD ORDERABLES Final Resul t Performing Organization Address City/[facility] Co de Phone Number [facility] [address] * (ABNORMAL) POC Glucose Monitoring Device (11/07/2025 9:04 PM EST) POC Glucose Monitoring Device 253(H) 70 - 100 mg/dL 11/07/2025 9:05 PM EST [facility] Blood 11/07/2025 9:04 PM EST 11/07/2025 9:05 PM EST Vani Winkler MD POINT OF CARE TEST ORDERABLE S Final Result [facility] [address] [facility]. [address] * (ABNORMAL) POC Glucose Monitoring Device (11/07/2025 5:56 PM EST) POC Glucose Monitoring Device 216(H) 70 - 100 mg/dL 11/07/2025 5:57 PM EST [facility] Blood 11/07/2025 5:56 PM EST 11/07/2025 5:57 PM EST Vani Winkler MD POINT OF CARE TEST ORDERABLE S Final Result Performing Organization Address City/[facility]/ZIP Co de Phone Number [facility] [address] [facility]. [address] * (ABNORMAL) POC Glucose Monitoring Device (11/07/2025 2:13 PM EST) POC Glucose Monitoring Device 250(H) 70 - 100 mg/dL 11/07/2025 2:14 PM EST [facility] Blood 11/07/2025 2:13 PM EST 11/07/2025 2:14 PM EST Vani Winkler MD POINT OF CARE TEST ORDERABLE S Final Result [facility] [address] [facility]. [address] * (ABNORMAL) POC Glucose Monitoring Device (11/07/2025 8:53 AM EST) POC Glucose Monitoring Device 188(H) 70 - 100 mg/dL 11/07/2025 8:54 AM EST [facility] Blood 11/07/2025 8:53 AM EST 11/07/2025 8:54 AM EST Vani Winkler MD POINT OF CARE TEST ORDERABLE S Final Result [facility] [address] * IgG (11/07/2025 6:40 AM EST) IgG 993.0 600.0 - 1,560.0 mg/dL 11/09/2025 11:39 AM EST [facility] Comment:Please interpret the se findings in conjunction with clinical findings, protein electrophoresis, and immunotyping/immunofixation results. Serum 11/07/2025 6:40 AM EST 11/07/2025 3:26 PM EST Vani Winkler MD LAB BLOOD ORDERABLES Final R esult [facility] [address] * (ABNORMAL) Haptoglobin (11/07/2025 6:40 AM EST) Haptoglobin <30(L) 44 - 215 mg/dL 11/07/2025 7:36 AM EST [facility] Serum 11/07/2025 6:40 AM EST 11/07/2025 7:02 AM EST Keith Novak MD LAB BLOOD ORDERABLES Fi nal Result [facility] [address] [facility]. [address] * (ABNORMAL) Lactate Dehydrogenase (11/07/2025 6:40 AM EST) LD 334(H) 110 - 270 U/L 11/07/2025 7:30 AM EST [facility] Plasma 11/07/2025 6:40 AM EST 11/07/2025 6:59 AM EST Keith Novak MD LAB BLOOD ORDERABLES Fi nal Result Performing Organization Address [facility] Co de Phone Number [facility] [address] [facility]. [address] * Tacrolimus level (11/07/2025 6:40 AM EST) Tacrolimus (LC-MS) 8.9 3.0 - 15.0 ng/mL 11/07/2025 10:26 AM EST [facility] Comment:Performed via liquid chromatography tandem mass spectrometry. Detection limit: 1 ng/mL. Individual target concentrations may vary due to target organ and time after transplant. This test has been developed and its performance characteristics determined by [facility] which is certified under the Clinical [...] ORDERABLES Final Resul t Performing Organization Address [facility] Co de Phone Number [facility] [address] [facility]. [address] * Phosphorus (11/07/2025 6:40 AM EST) Phosphorus 2.9 2.1 - 4.7 mg/dL 11/07/2025 7:31 AM EST [facility] Plasma 11/07/2025 6:40 AM EST 11/07/2025 6:59 AM EST Aspen Parr MD LAB BLOOD ORDERABLES Final Resul t Performing Organization Address City/[facility] Co de Phone Number [facility] [address] [facility]. [address] * Magnesium (11/07/2025 6:40 AM EST) Magnesium 1.9 1.5 - 2.5 mg/dL 11/07/2025 7:31 AM EST [facility] Plasma 11/07/2025 6:40 AM EST 11/07/2025 6:59 AM EST us Aspen Parr MD LAB BLOOD ORDERABLES Final Resul t [facility] [address] [facility]. [address] * (ABNORMAL) CBC (11/07/2025 6:40 AM EST) WBC 12.0(H) 3.8 - 10.8 10E3/uL 11/07/2025 7:06 AM [facility] RBC 2.33(L) 4.20 - 5.80 10E6/uL 11/07/2025 7:06 AM [facility] Hemoglobin 8.0(L) 13.2 - 17.1 g/dL 11/07/2025 7:06 AM [facility] Hematocrit 22.4(L) 38.5 - 50.0 % 11/07/2025 7:06 AM [facility] MCV 96.5 80.0 - 100.0 fL 11/07/2025 7:06 AM [facility] MCH 34.4(H) 27.0 - 33.0 pg 11/07/2025 7:06 AM [facility] MCHC 35.7 32.0 - 36.0 g/dL 11/07/2025 7:06 AM [facility] RDW 19.9(H) 11.0 - 15.0 % 11/07/2025 7:06 AM [facility] Platelets 145 140 - 400 10E3/uL 11/07/2025 7:06 AM [facility] MPV 8.3 7.5 - 11.5 fL 11/07/2025 7:06 AM [facility] Whole Blood 11/07/2025 6:40 AM EST 11/07/2025 7:00 AM EST us Aspen Parr MD LAB BLOOD ORDERABLES Final Resul t Performing Organization Address [facility] Co de Phone Number [facility] [address] [facility]. [address] * (ABNORMAL) Hepatic Function Panel (11/07/2025 6:40 AM EST) Total Bilirubin 6.4(H) 0.0 - 1.5 mg/dL 11/07/2025 7:31 AM EST [facility] Bilirubin, Direct 3.39(H) 0.00 - 0.40 mg/dL 11/07/2025 7:31 AM EST [facility] AST 27 13 - 39 U/L 11/07/2025 7:31 AM EST [facility] ALT 63(H) 7 - 52 U/L 11/07/2025 7:31 AM EST [facility] Alkaline Phosphatase 370(H) 36 - 125 U/L 11/07/2025 7:31 AM EST [facility] Total Protein 5.2(L) 6.4 - 8.9 g/dL 11/07/2025 7:31 AM EST [facility] Albumin 2.8(L) 3.5 - 5.7 g/dL 11/07/2025 7:31 AM EST [facility] Bilirubin, Indirect 3.01(H) 0.00 - 1.10 mg/dL 11/07/2025 7:31 AM EST [facility] Plasma 11/07/2025 6:40 AM EST 11/07/2025 6:59 AM EST us Aspen Parr MD LAB BLOOD ORDERABLES Final Resul t [facility] [address] [facility]. [address] * (ABNORMAL) Basic metabolic panel (11/07/2025 6:40 AM EST) Sodium 135 133 - 146 mmol/L 11/07/2025 7:31 AM EST [facility] Potassium 4.2 3.5 - 5.3 mmol/L 11/07/2025 7:31 AM EST [facility] Chloride 104 98 - 110 mmol/L 11/07/2025 7:31 AM EST [facility] CO2 24 21 - 33 mmol/L 11/07/2025 7:31 AM EST [facility] Comment:High lactate dehydro genase concentrations in patient samples may cause falsely increased bicarbonate results. If markedly elevated LDH is observed or suspected, please assess results in conjunction with patient`s clinical presentation. In cases of discrepant results, consider evaluating CO2 in with a blood gas order. Anion Gap 7 3 - 16 mmol/L 11/07/2025 7:31 AM EST [facility] BUN 22 7 - 25 mg/dL 11/07/2025 7:31 AM EST [facility] Creatinine 0.97 0.60 - 1.30 mg/dL 11/07/2025 7:31 AM [facility] Glucose 201(H) 70 - 100 mg/dL 11/07/2025 7:31 AM [facility] Calcium 7.5(L) 8.6 - 10.3 mg/dL 11/07/2025 7:31 AM [facility] Osmolality, Calculated 289 278 - 305 mOsm/kg 11/07/2025 7:31 AM [facility] EGFR 87 11/07/2025 7:31 AM [facility] Comment:As of 2022, the estimated GFR [...] MD LAB BLOOD ORDERABLES Final Resul t [facility] [address] [facility]. [address] * (ABNORMAL) POC Glucose Monitoring Device (11/06/2025 9:36 PM EST) POC Glucose Monitoring Device 273(H) 70 - 100 mg/dL 11/06/2025 9:36 PM EST [facility] Blood 11/06/2025 9:36 PM EST 11/06/2025 9:36 PM EST us Vani Winkler MD POINT OF CARE TEST ORDERABLE S Final Result Performing Organization Address City/[facility]/ZIP Co de Phone Number [facility] [address] [facility]. [address] * (ABNORMAL) POC Glucose Monitoring Device (11/06/2025 6:34 PM EST) POC Glucose Monitoring Device 347(H) 70 - 100 mg/dL 11/06/2025 8:59 PM EST [facility] Blood 11/06/2025 6:34 PM EST 11/06/2025 8:59 PM EST us Vani Winkler MD POINT OF CARE TEST ORDERABLE S Final Result Performing Organization Address City/[facility]/ZIP Co de Phone Number [facility] [address] [facility]. [address] * (ABNORMAL) CBC, STAT (11/06/2025 5:50 PM EST) WBC 10.1 3.8 - 10.8 10E3/uL 11/06/2025 6:43 PM EST [facility] RBC 2.40(L) 4.20 - 5.80 10E6/uL 11/06/2025 6:43 PM EST [facility] Hemoglobin 8.1(L) 13.2 - 17.1 g/dL 11/06/2025 6:43 PM EST [facility] Hematocrit 22.5(L) 38.5 - 50.0 % 11/06/2025 6:43 PM EST [facility] MCV 93.9 80.0 - 100.0 fL 11/06/2025 6:43 PM EST [facility] MCH 33.7(H) 27.0 - 33.0 pg 11/06/2025 6:43 PM EST [facility] MCHC 35.9 32.0 - 36.0 g/dL 11/06/2025 6:43 PM EST [facility] RDW 18.8(H) 11.0 - 15.0 % 11/06/2025 6:43 PM EST [facility] Platelets 146 140 - 400 10E3/uL 11/06/2025 6:43 PM EST [facility] Comment: _Platelet Morphology Normal _Platelets Appear Adequate MPV 8.5 7.5 - 11.5 fL 11/06/2025 6:43 PM EST [facility] Whole Blood 11/06/2025 5:50 PM EST 11/06/2025 5:58 PM EST Kassi INTERIANO LAB BLOOD ORDERABLES Final Re sult [facility] [address] * (ABNORMAL) POC Glucose Monitoring Device (11/06/2025 11:11 AM EST) POC Glucose Monitoring Device 303(H) 70 - 100 mg/dL 11/06/2025 11:12 AM EST [facility] Blood 11/06/2025 11:1 1 AM EST 11/06/2025 11:12 AM EST Vani Winkler MD POINT OF CARE TEST ORDERABLE S Final Result [facility] [address] * (ABNORMAL) POC Glucose Monitoring Device (11/06/2025 7:25 AM EST) POC Glucose Monitoring Device 320(H) 70 - 100 mg/dL 11/06/2025 7:25 AM EST [facility] Blood 11/06/2025 7:25 AM EST 11/06/2025 7:25 AM EST us Vani Winkler MD POINT OF CARE TEST ORDERABLE S Final Result [facility] [address] * Prepare RBC, leukoreduced, 1 Units (11/06/2025 6:15 AM EST) Product Code Q2315Y76 [facility]LL Unit Number [id number] HCLL Dispense Status Released from Crossmatch_RE HCLL Blood Expiration Date HCLL Coding System [id number] HCLL Product Code G6763M44 [facility]LL Unit Number [id number] HCLL Dispense Status Presumed Transfused_PT HCLL Blood Expiration Date HCLL Coding System [id number] HCLL Product Code R8247M68 HCLL Unit Number [id number] HCLL Dispense Status Released from Crossmatch_RE HCLL Blood Expiration Date HCLL Coding System [id number] HCLL Blood Bank Product us Sherrie INTERIANO BLOOD BANK PRODUCT ORDERABLES Fi nal Result Performing Organization Address City/[facility]/ZIP Co de Phone Number HCLL * (ABNORMAL) Haptoglobin (11/06/2025 6:02 AM EST) Haptoglobin <30(L) 44 - 215 mg/dL 11/06/2025 7:00 AM EST [facility] Serum 11/06/2025 6:02 AM EST 11/06/2025 6:27 AM EST us Keith Novak MD LAB BLOOD ORDERABLES Fi nal Result Performing Organization Address City/[facility]/ZIP Co de Phone Number [facility] [address] [facility]. [address] * (ABNORMAL) Lactate Dehydrogenase (11/06/2025 6:02 AM EST) LD 400(H) 110 - 270 U/L 11/06/2025 6:48 AM EST [facility] Plasma 11/06/2025 6:02 AM EST 11/06/2025 6:19 AM EST Keith Novak MD LAB BLOOD ORDERABLES Fi nal Result Performing Organization Address City/[facility]/ZIP Co de Phone Number [facility] [address] * Tacrolimus level (11/06/2025 6:02 AM EST) [facility] Tacrolimus (LC-MS) 11.2 3.0 - 15.0 ng/mL 11/06/2025 10:50 AM EST [facility] Comment:Performed via liquid chromatography tandem mass spectrometry. Detection limit: 1 ng/mL. Individual target concentrations may vary due to target organ and time after transplant. This test has been developed and its performance characteristics determined by [facility] which is certified under the Clinical [...] MD LAB BLOOD ORDERABLES Final Resul t [facility] [address] [facility]. [address] * Phosphorus (11/06/2025 6:02 AM EST) Pathologist [facility] Phosphorus 2.9 2.1 - 4.7 mg/dL 11/06/2025 7:11 AM EST [facility] Plasma 11/06/2025 6:02 AM EST 11/06/2025 6:27 AM EST us Aspen Parr MD LAB BLOOD ORDERABLES Final Resul t [facility] [address] [facility]. [address] * Magnesium (11/06/2025 6:02 AM EST) Magnesium 1.9 1.5 - 2.5 mg/dL 11/06/2025 7:11 AM EST [facility] Plasma 11/06/2025 6:02 AM EST 11/06/2025 6:27 AM EST us Aspen Parr MD LAB BLOOD ORDERABLES Final Resul t Performing Organization Address [facility] Co de Phone Number [facility] [address] [facility]. [address] * (ABNORMAL) CBC (11/06/2025 6:02 AM EST) WBC 8.7 3.8 - 10.8 10E3/uL 11/06/2025 7:02 AM EST [facility] RBC 2.51(L) 4.20 - 5.80 10E6/uL 11/06/2025 7:02 AM EST [facility] Hemoglobin 8.3(L) 13.2 - 17.1 g/dL 11/06/2025 7:02 AM EST [facility] Hematocrit 23.4(L) 38.5 - 50.0 % 11/06/2025 7:02 AM EST [facility] MCV 93.4 80.0 - 100.0 fL 11/06/2025 7:02 AM EST [facility] MCH 33.3(H) 27.0 - 33.0 pg 11/06/2025 7:02 AM EST [facility] MCHC 35.7 32.0 - 36.0 g/dL 11/06/2025 7:02 AM EST [facility] RDW 18.3(H) 11.0 - 15.0 % 11/06/2025 7:02 AM EST [facility] Platelets 156 140 - 400 10E3/uL 11/06/2025 7:02 AM EST [facility] Platelet Estimate ADEQ 11/06/2025 7:02 AM EST [facility] MPV 8.3 7.5 - 11.5 fL 11/06/2025 7:02 AM EST [facility] Whole Blood 11/06/2025 6:02 AM EST 11/06/2025 6:19 AM EST Narrative [facility] - 11/06/2025 7:02 AM EST Peripheral blood smear was scanned per review criteria approved by the laboratory senior medical billing specialist. us Aspen Parr MD LAB BLOOD ORDERABLES Final Resul t [facility] [address] [place] [address], [facility] * (ABNORMAL) Basic metabolic panel (11/06/2025 6:02 AM EST) Sodium 132(L) 133 - 146 mmol/L 11/06/2025 6:59 AM EST [facility] Potassium 4.6 3.5 - 5.3 mmol/L 11/06/2025 6:59 AM [facility] Chloride 103 98 - 110 mmol/L 11/06/2025 6:59 AM [facility] CO2 21 21 - 33 mmol/L 11/06/2025 6:59 AM [facility] Comment:High lactate dehydro genase concentrations in patient samples may cause falsely increased bicarbonate results. If markedly elevated LDH is observed or suspected, please assess results in conjunction with patient`s clinical presentation. In cases of discrepant results, consider evaluating CO2 in with a blood gas order. Anion Gap 8 3 - 16 mmol/L 11/06/2025 6:59 AM EST [facility] BUN 21 7 - 25 mg/dL 11/06/2025 6:59 AM [facility] Creatinine 0.97 0.60 - 1.30 mg/dL 11/06/2025 6:59 AM [facility] Glucose 307(H) 70 - 100 mg/dL 11/06/2025 6:59 AM [facility] Calcium 7.2(L) 8.6 - 10.3 mg/dL 11/06/2025 6:59 AM EST [facility] Osmolality, Calculated 289 278 - 305 mOsm/kg 11/06/2025 6:59 AM EST [facility] EGFR 87 11/06/2025 6:59 AM EST [facility] Comment:As of 2022, the [...] MD LAB BLOOD ORDERABLES Final Resul t [facility] [address] [id number] * (ABNORMAL) Hepatic Function Panel (11/06/2025 6:02 AM EST) Total Bilirubin 17.0(H) 0.0 - 1.5 mg/dL 11/06/2025 7:11 AM EST [facility] Bilirubin, Direct 9.93(H) 0.00 - 0.40 mg/dL 11/06/2025 7:11 AM EST [facility] AST 66(H) 13 - 39 U/L 11/06/2025 7:11 AM EST [facility] ALT 78(H) 7 - 52 U/L 11/06/2025 7:11 AM EST [facility] Alkaline Phosphatase 445(H) 36 - 125 U/L 11/06/2025 7:11 AM EST [facility] Total Protein 5.2(L) 6.4 - 8.9 g/dL 11/06/2025 7:11 AM EST [facility] Albumin 2.8(L) 3.5 - 5.7 g/dL 11/06/2025 7:11 AM EST [facility] Bilirubin, Indirect 7.07(H) 0.00 - 1.10 mg/dL 11/06/2025 7:11 AM EST [facility] Plasma 11/06/2025 6:02 AM EST 11/06/2025 6:27 AM EST us Aspen Parr MD LAB BLOOD ORDERABLES Final Resul t [facility] [address] [facility]. [address] * (ABNORMAL) POC Glucose Monitoring Device (11/05/2025 9:56 PM EST) POC Glucose Monitoring Device 228(H) 70 - 100 mg/dL 11/05/2025 9:58 PM EST [facility] Blood 11/05/2025 9:56 PM EST 11/05/2025 9:57 PM EST us Vani Winkler MD POINT OF CARE TEST ORDERABLE S Final Result Performing Organization Address [facility]/ZIP Co de Phone Number [facility] [address] [facility]. [address] * FRANSICO Anti-Complement (11/05/2025 8:22 PM EST) FRANSICO Anti-complemen t 1 Negative 11/05/2025 8:22 PM EST [facility] Blood 11/05/2025 8:22 PM EST 11/05/2025 8:22 PM EST us Sherrie INTERIANO BLOOD BANK TEST ORDERABLES Final Result Performing Organization Address City/[facility]/ZIP Co de Phone Number [facility] [address] [facility]. [address] * FRANSICO Anti-IgG (11/05/2025 8:21 PM EST) [place] IgG Negative 11/05/2025 8:21 PM EST [facility] Blood 11/05/2025 8:21 PM EST 11/05/2025 8:21 PM EST [facility] BLOOD B[facility] TEST ORDERABLES Final Result Performing Organization Address City/[facility]/ZIP Co de Phone Number [facility] [address] [facility]. [address] * Parvovirus B19 Quant PCR (11/05/2025 6:49 PM EST) [facility] Parvovirus B19 Quant PCR Negative Negative copies/mL 11/09/2025 9:34 PM EST [facility] Comment: No Parvovirus B19 DNA detected. The quantitative range of this assay is 500 to 10 million copies/mL. This test was developed and its performance characteristics determined by [employer]. It has not been cleared or approved by the Food and Drug Administration. The FDA has determined that such clearance or approval is not necessary. [employer] Parvo Qn PCR UPTCAL [id number] L 11/09/2025 9:34 PM EST [facility] Comment: Unable to calculate result since non-numeric result obtained for component test. Plasma Frozen 11/05/2025 6:4 9 PM EST 11/09/2025 10:06 PM EST Narrative [facility] - 11/09/2025 10:06 PM EST PERFORMED AT: [facility] [id number] [employer] MECHANICAL ENGINEER: Kevin Holguin MD PHONE: [phone] [facility] LAB BLOOD ORDERABLES Final Resul t Performing Organization Address City/[facility]/ZIP Co de Phone Number [facility] [address] [facility]. [address] * (ABNORMAL) Hemoglobin Free, Plasma (11/05/2025 6:49 PM EST) [facility] Hgb, Plasma 80(H) 30 - 40 mg/dL 11/05/2025 7:46 PM EST [facility] Plasma 11/05/2025 6:49 PM EST 11/05/2025 6:55 PM EST Sherrie INTERIANO LAB BLOOD ORDERABLES Final Resul t Performing Organization Address [facility] Co de Phone Number [facility] [address] * (ABNORMAL) Parvovirus B19 Antibody, IgG And IgM (11/05/2025 6:49 PM EST) Parvovirus B19 IgG 6.4(H) 0.0 - 0.8 index 11/09/2025 12:54 PM EST [facility] Comment: Negative <0.9 Equivocal 0.9 - 1.1 Positive >1.1 Parvovirus B19 IgM 0.2 0.0 - 0.8 index 11/09/2025 12:54 PM EST [facility] Comment: Negative <0.9 Equivocal 0.9 - 1.1 Positive >1.1 Serum 11/05/2025 6:49 PM EST 11/09/2025 1:07 PM EST Narrative [facility] - 11/09/2025 1:07 PM EST PERFORMED AT: [address] [id number] [employer] MECHANICAL ENGINEER: Kevin Holguin MD PHONE: [phone] Sherrie INTERIANO LAB BLOOD ORDERABLES Final Resul t Performing Organization Address City/[facility]/ZIP Co de Phone Number [facility] [address] * (ABNORMAL) CBC, STAT (11/05/2025 6:49 PM EST) WBC 9.3 3.8 - 10.8 10E3/uL 11/05/2025 7:08 PM EST [facility] RBC 2.59(L) 4.20 - 5.80 10E6/uL 11/05/2025 7:08 PM EST [facility] Hemoglobin 8.4(L) 13.2 - 17.1 g/dL 11/05/2025 7:08 PM EST [facility] Hematocrit 24.2(L) 38.5 - 50.0 % 11/05/2025 7:08 PM EST [facility] MCV 93.2 80.0 - 100.0 fL 11/05/2025 7:08 PM EST [facility] MCH 32.3 27.0 - 33.0 pg 11/05/2025 7:08 PM EST [facility] MCHC 34.7 32.0 - 36.0 g/dL 11/05/2025 7:08 PM EST [facility] RDW 18.2(H) 11.0 - 15.0 % 11/05/2025 7:08 PM EST [facility] Platelets 169 140 - 400 10E3/uL 11/05/2025 7:08 PM EST [facility] MPV 7.6 7.5 - 11.5 fL 11/05/2025 7:08 PM EST [facility] Whole Blood 11/05/2025 6:49 PM EST 11/05/2025 6:55 PM EST [facility] LAB BLOOD ORDERABLES Final Resul t [facility] [address] * Direct Antiglobulin Test (11/05/2025 6:49 PM EST) [place] Positive 11/05/2025 7:37 PM EST [facility] Blood 11/05/2025 6:49 PM EST 11/05/2025 6:58 PM EST [employer] BLOOD BANK TEST ORDERABLES Final Result Performing Organization Address City/[facility]/ZIP Co de Phone Number [facility] [address] * (ABNORMAL) Reticulocyte Count, Auto (11/05/2025 6:49 PM EST) Retic Ct Pct 11.66(H) 0.50 - 2.00 % 11/05/2025 7:08 PM EST [facility] Retic Ct Abs 301,994(H) 25,000 - 90,000 /uL 11/05/2025 7:08 PM EST [facility] Immature Retic Fract 0.70(H) 0.09 - 0.56 11/05/2025 7:08 PM EST [facility] Whole Blood 11/05/2025 6:49 PM EST 11/05/2025 6:55 PM EST Sherrie Stevensl LAISHA LAB BLOOD ORDERABLES Final Resul t [facility] [address] [facility]. [address] * Transfuse RBC Transfusion Rate: Per dept routine (11/05/2025 5:49 PM EST) Sherrie Mathistel PA NURSING TREATMENT ORDERABLES - B LOOD ADMIN Final Result Performing Organization Address City/[facility] Co de Phone Number EXTERNAL * Transfuse RBC Transfusion Rate: Per dept routine, 1 Units (11/05/2025 5:49 PM EST) Sherrie Mathistel PA NURSING TREATMENT ORDERABLES - B LOOD ADMIN Final Result Performing Organization Address City/[facility]/ZIP Co de Phone Number EXTERNAL * (ABNORMAL) POC Glucose Monitoring Device (11/05/2025 2:10 PM EST) POC Glucose Monitoring Device 225(H) 70 - 100 mg/dL 11/05/2025 2:10 PM EST [facility] Blood 11/05/2025 2:10 PM EST 11/05/2025 2:10 PM EST Vani Winkler MD POINT OF CARE TEST ORDERABLE S Final Result Performing Organization Address City/[facility]/ZIP Co de Phone Number [facility] [address] * LIVER BIOPSY (11/05/2025 11:35 AM EST) 11/05/2025 11:3 5 AM EST Narrative [facility] - 11/05/2025 2:47 PM EST [id number] Procedure Date: 11/05/2025 11:35 AM Patient Name: David Serrano Date of : 1960 Admit Type: Inpatient Age: 65 Gender: Male Note Status: Finalized Attending MD: Nigel Reaves MD, [id number] Procedure: Liver biopsy Indications: Abnormal Liver enzymes [...] by the physician, the nurse and the plasma center technician in the procedure room. Mental Status [...] gauge in diameter was made with the Avosoftince gun using ultrasound to jamie the site. [...] referring physician. Procedure Code(s): --- Professional --- 97778, GC, Biopsy of liver, needle; percutaneous 43792, GC, Ultrasonic guidance for needle placement (eg, biopsy, aspiration, injection, localization device), imaging supervision and interpretation 60550, GC, Moderate sedation services provided by the same physician or other qualified health care director performing the diagnostic or therapeutic service that the sedation supports, requiring the presence of an independent trained observer to assist in the monitoring of the patient's level of consciousness and physiological status; initial 15 minutes of intraservice time, patient age 5 years or older Diagnosis Code(s): --- Professional --- R74.9, Abnormal serum enzyme level, unspecified CPT copyright 2022 [employer]. All rights reserved. The codes documented in this report are preliminary and upon engineering associate review may be revised to meet current compliance requirements. Attending Participation: I was present and participated during the entire procedure, including non-carcamo portions. Nigel Reaves MD Nigel Reaves MD 11/05/2025 2:47:17 PM This report has been signed electronically.MD Sherley Ross MD Pedro Pinzon MD 11/05/2025 11:40:[address] [place] [address], [facility] us Vani Winkler MD PROCEDURE/MINOR SURGICAL ORD ERABLES Final Result Performing Organization Address [facility] de Phone Number PROVATION * Prepare RBC, leukoreduced (11/05/2025 6:15 AM EST) Product Code [id number] [facility] Unit Number [id number] [facility] Dispense Status Presumed Transfused_PT [facility]LL Blood Expiration Date HCLL Coding System [id number] HCLL Product Code E6716G04 HCLL Unit Number [id number] HCLL Dispense Status Presumed Transfused_PT HCLL Blood Expiration Date [id number] HCLL Coding System [id number] HCLL us Attending Provider Unknown BLOOD BANK PRODUCT OR DERABLES Final Result Performing Organization Address [facility] Co de Phone Number HCLL * (ABNORMAL) Differential (11/05/2025 6:10 AM EST) Myelocytes Relative 7.0(H) 0.0 - 0.0 % 11/05/2025 7:55 AM [facility] Metamyelocytes Relative 2.0(H) 0.0 - 0.0 % 11/05/2025 7:55 AM [facility] Neutrophils Relative 71.0 40.0 - 80.0 % 11/05/2025 7:55 AM [facility] Lymphocytes Relative 10.0(L) 15.0 - 45.0 % 11/05/2025 7:55 AM [facility] Monocytes Relative 5.0 0.0 - 12.0 % 11/05/2025 7:55 AM [facility] Eosinophils Relative 4.0 0.0 - 8.0 % 11/05/2025 7:55 AM [facility] Basophils Relative 1.0 0.0 - 1.0 % 11/05/2025 7:55 AM [facility] Neutrophils Absolute 9,301(H) 1,520 - 8,640 /uL 11/05/2025 7:55 AM [facility] nRBC 10(H) 0 - 0 /100 WBC 11/05/2025 7:55 AM [facility] Metamyelocytes Absolute 262(H) 0 - 0 /uL 11/05/2025 7:55 AM [facility] Myelocytes Absolute 917(H) 0 - 0 /uL 11/05/2025 7:55 AM [facility] Lymphocytes Absolute 1,310 570 - 4,860 /uL 11/05/2025 7:55 AM [facility] Monocytes Absolute 655 0 - 1,296 /uL 11/05/2025 7:55 AM [facility] Eosinophils Absolute 524 0 - 864 /uL 11/05/2025 7:55 AM [facility] Basophils Absolute 131(H) 0 - 108 /uL 11/05/2025 7:55 AM [facility] Microcytosis PRES 11/05/2025 7:55 AM [facility] Macrocytosis PRES 11/05/2025 7:55 AM [facility] [employer] 11/05/2025 7:55 AM [facility] PLT Morphology PLATELET MORPHO 11/05/2025 7:55 AM [facility] Whole Blood 11/05/2025 6:10 AM EST 11/05/2025 7:12 AM EST Narrative [facility] - 11/05/2025 7:55 AM EST Manual WBC differential performed per review criteria approved by the senior medical billing specialist. us Aspen Parr MD LAB BLOOD ORDERABLES Final Resul t Performing Organization Address City/[facility]/ZIP Co de Phone Number [facility] [address] [facility]. [address] * Slide Request (Make Slide and Hold) (11/05/2025 6:10 AM EST) Slide Request Done 11/05/2025 9:05 AM EST [facility] Whole Blood 11/05/2025 6:10 AM EST 11/05/2025 7:12 AM EST Narrative [facility] - 11/05/2025 12:29 PM EST Hold slide for review by->Pathologist Indication for Review:->Hemolysis/schistocytes us Sherrie INTERIANO LAB BLOOD ORDERABLES Final Resul t Performing Organization Address [facility]/ZIP Co de Phone Number [facility] [address] [facility]. [address] * (ABNORMAL) Haptoglobin (11/05/2025 6:10 AM EST) Haptoglobin <30(L) 44 - 215 mg/dL 11/05/2025 7:07 AM EST [facility] Serum 11/05/2025 6:10 AM EST 11/05/2025 6:29 AM EST Keith Novak MD LAB BLOOD ORDERABLES Fi nal Result Performing Organization Address City/[facility]/ZIP Co de Phone Number [facility] [address] [facility]. [address] * (ABNORMAL) Lactate Dehydrogenase (11/05/2025 6:10 AM EST) LD 380(H) 110 - 270 U/L 11/05/2025 7:03 AM EST [facility] Plasma 11/05/2025 6:10 AM EST 11/05/2025 6:28 AM EST Keith Novak MD LAB BLOOD ORDERABLES Fi nal Result Performing Organization Address City/[facility]/ZIP Co de Phone Number [facility] [address] [facility]. [address] * Tacrolimus level (11/05/2025 6:10 AM EST) Tacrolimus (LC-MS) 8.2 3.0 - 15.0 ng/mL 11/05/2025 10:00 AM EST [facility] Comment:Performed via liquid chromatography tandem mass spectrometry. Detection limit: 1 ng/mL. Individual target concentrations may vary due to target organ and time after transplant. This test has been developed and its performance characteristics determined by [facility] which is certified under the Clinical [...] ORDERABLES Final Resul t Performing Organization Address [facility] Co de Phone Number [facility] [address] [facility]. [address] * Phosphorus (11/05/2025 6:10 AM EST) Phosphorus 2.8 2.1 - 4.7 mg/dL 11/05/2025 7:07 AM EST [facility] Plasma 11/05/2025 6:10 AM EST 11/05/2025 6:28 AM EST Aspen Parr MD LAB BLOOD ORDERABLES Final Resul t Performing Organization Address City/[facility]/ZIP Co de Phone Number [facility] [address] * Magnesium (11/05/2025 6:10 AM EST) Magnesium 1.7 1.5 - 2.5 mg/dL 11/05/2025 7:07 AM EST [facility] Plasma 11/05/2025 6:10 AM EST 11/05/2025 6:28 AM EST us Aspen Parr MD LAB BLOOD ORDERABLES Final Resul t [facility] [address] * (ABNORMAL) CBC (11/05/2025 6:10 AM EST) WBC 13.1(H) 3.8 - 10.8 10E3/uL 11/05/2025 7:55 AM [facility] RBC 1.96(L) 4.20 - 5.80 10E6/uL 11/05/2025 7:55 AM [facility] Hemoglobin 7.0(L) 13.2 - 17.1 g/dL 11/05/2025 7:55 AM [facility] Hematocrit 18.5(L) 38.5 - 50.0 % 11/05/2025 7:55 AM [facility] MCV 94.4 80.0 - 100.0 fL 11/05/2025 7:55 AM [facility] MCH 35.4(H) 27.0 - 33.0 pg 11/05/2025 7:55 AM [facility] MCHC 37.5(H) 32.0 - 36.0 g/dL 11/05/2025 7:55 AM [facility] RDW 18.0(H) 11.0 - 15.0 % 11/05/2025 7:55 AM [facility] Platelets 162 140 - 400 10E3/uL 11/05/2025 7:55 AM [facility] MPV 7.7 7.5 - 11.5 fL 11/05/2025 7:55 AM [facility] Whole Blood 11/05/2025 6:10 AM EST 11/05/2025 6:28 AM EST us Aspen Parr MD LAB BLOOD ORDERABLES Final Resul t Performing Organization Address [facility] Co de Phone Number [facility] [address] * (ABNORMAL) Hepatic Function Panel (11/05/2025 6:10 AM EST) Total Bilirubin 14.2(H) 0.0 - 1.5 mg/dL 11/05/2025 7:07 AM EST [facility] Bilirubin, Direct 8.89(H) 0.00 - 0.40 mg/dL 11/05/2025 7:07 AM EST [facility] AST 74(H) 13 - 39 U/L 11/05/2025 7:07 AM EST [facility] ALT 65(H) 7 - 52 U/L 11/05/2025 7:07 AM EST [facility] Alkaline Phosphatase 381(H) 36 - 125 U/L 11/05/2025 7:07 AM EST [facility] Total Protein 5.0(L) 6.4 - 8.9 g/dL 11/05/2025 7:07 AM EST [facility] Albumin 2.6(L) 3.5 - 5.7 g/dL 11/05/2025 7:07 AM EST [facility] Bilirubin, Indirect 5.31(H) 0.00 - 1.10 mg/dL 11/05/2025 7:07 AM EST [facility] Plasma 11/05/2025 6:10 AM EST 11/05/2025 6:28 AM EST us Aspen Parr MD LAB BLOOD ORDERABLES Final Resul t [facility] [address] [facility]. [address] * (ABNORMAL) Basic metabolic panel (11/05/2025 6:10 AM EST) Sodium 137 133 - 146 mmol/L 11/05/2025 7:07 AM EST [facility] Potassium 4.1 3.5 - 5.3 mmol/L 11/05/2025 7:07 AM [facility] Chloride 106 98 - 110 mmol/L 11/05/2025 7:07 AM [facility] CO2 23 21 - 33 mmol/L 11/05/2025 7:07 AM [facility] Comment:High lactate dehydro genase concentrations in patient samples may cause falsely increased bicarbonate results. If markedly elevated LDH is observed or suspected, please assess results in conjunction with patient`s clinical presentation. In cases of discrepant results, consider evaluating CO2 in with a blood gas order. Anion Gap 8 3 - 16 mmol/L 11/05/2025 7:07 AM [facility] BUN 20 7 - 25 mg/dL 11/05/2025 7:07 AM [facility] Creatinine 1.20 0.60 - 1.30 mg/dL 11/05/2025 7:07 AM [facility] Glucose 147(H) 70 - 100 mg/dL 11/05/2025 7:07 AM [facility] Calcium 7.2(L) 8.6 - 10.3 mg/dL 11/05/2025 7:07 AM [facility] Osmolality, Calculated 289 278 - 305 mOsm/kg 11/05/2025 7:07 AM [facility] EGFR 68 11/05/2025 7:07 AM [facility] Comment:As of 2022, the estimated GFR [...] ORDERABLES Final Resul t Performing Organization Address [facility] Co de Phone Number [facility] [address] [place] [address]. [address] * (ABNORMAL) POC Glucose Monitoring Device (11/05/2025 6:00 AM EST) POC Glucose Monitoring Device 169(H) 70 - 100 mg/dL 11/05/2025 6:01 AM EST [facility] Blood 11/05/2025 6:00 AM EST 11/05/2025 6:01 AM EST Vani Winkler MD POINT OF CARE TEST ORDERABLE S Final Result Performing Organization Address [facility] Co de Phone Number [facility] [address] [place] [address]. [address] * (ABNORMAL) POC Glucose Monitoring Device (11/05/2025 12:11 AM EST) POC Glucose Monitoring Device 207(H) 70 - 100 mg/dL 11/05/2025 12:11 AM EST [facility] Blood 11/05/2025 12:1 1 AM EST 11/05/2025 12:11 AM EST Vani Winkler MD POINT OF CARE TEST ORDERABLE S Final Result Performing Organization Address [facility] Co de Phone Number [address] * Surgical Pathology Exam (11/05/2025 12:00 AM EST) 11/05/2025 11/06/2025 Narrative [facility] - 11/05/2025 12:00 AM EST CASE: [id number] PATIENT: DAVID SERRANO Clinical History: None Given Pre-Operative Diagnosis: None Given Post-Operative Diagnosis: None Given Specimen(s) Submitted: A. 2 Persaud Stained Peripheral Blood Smear CPT Code(s): 34080 X 1 Additional Information: FINAL DIAGNOSIS: Peripheral blood smear: - Normocytic anemia with anisocytosis and polychromasia. - Red blood cell agglutination. - No increase in schistocytes. - Mild leukocytosis with neutrophilia and few left shifted granulocytes. - No circulating blasts. Comment: Clinical correlation and follow up recommended. Complete blood count was performed at [facility] on 11/02/2025. Final Diagnosis performed by Connie Galvan MD Pathologist Electronically signed 11/07/2025 12:56:51 PM The Pathologist signing this report is located at [facility], [address] [place] [address], [place], [place], [facility], , CLIA ID: [id number] Sherrie INTERIANO PATHOLOGY/CYTOLOGY ORDERABLES Fi nal Result Performing Organization Address [facility] Co de Phone Number [facility] * (ABNORMAL) POC Glucose Monitoring Device (11/04/2025 6:48 PM EST) POC Glucose Monitoring Device 268(H) 70 - 100 mg/dL 11/04/2025 6:50 PM EST [facility] Blood 11/04/2025 6:48 PM EST 11/04/2025 6:49 PM EST Vani Winkler MD POINT OF CARE TEST ORDERABLE S Final Result Performing Organization Address [facility] Co de Phone Number [address] * (ABNORMAL) POC Glucose Monitoring Device (11/04/2025 1:00 PM EST) POC Glucose Monitoring Device 238(H) 70 - 100 mg/dL 11/04/2025 1:00 PM EST [facility] Blood 11/04/2025 1:00 PM EST 11/04/2025 1:00 PM EST Vani Winkler MD POINT OF CARE TEST ORDERABLE S Final Result Performing Organization Address City/[facility]/ZIP Co de Phone Number [facility] [address] [place] [address]. [address] * Fluoro ERCP S-I (11/04/2025 11:16 [...] - 100 mg/dL 11/04/2025 9:32 AM EST [facility] Blood 11/04/2025 9:32 AM EST 11/04/2025 9:32 AM EST Vani Winkler MD POINT OF CARE TEST ORDERABLE S Final Result Performing Organization Address City/State/[facility] Co de Phone Number [facility] [address] [facility]. [address] * Tacrolimus level (11/04/2025 6:15 AM EST) Pathologist [facility] Tacrolimus (LC-MS) 9.2 3.0 - 15.0 ng/mL 11/04/2025 11:55 AM EST [facility] Comment:Performed via liquid chromatography tandem mass spectrometry. Detection limit: 1 ng/mL. Individual target concentrations may vary due to target organ and time after transplant. This test has been developed and its performance characteristics determined by [facility] which is certified under the Clinical [...] Resul t Performing Organization Address [facility] de Phone Number [facility] [address] [place] [address]. [address] * Prepare RBC, leukoreduced, 2 Units (11/04/2025 6:15 AM EST) Product Code [id number] HCLL Unit Number [id number] HCLL Dispense Status Presumed Transfused_PT HCLL Blood Expiration Date HCLL Coding System [id number] HCLL Product Code P2504P52 HCLL Unit Number [id number] HCLL Dispense Status Released from Crossmatch_RE HCLL Blood Expiration Date HCLL Coding System [id number] HCLL Blood Bank Product Aspen Parr MD BLOOD BANK PRODUCT ORDERABLES Fi nal Result Performing Organization Address [facility] Co de Phone Number HCLL * (ABNORMAL) POC Glucose Monitoring Device (11/04/2025 5:18 AM EST) POC Glucose Monitoring Device 152(H) 70 - 100 mg/dL 11/04/2025 5:19 AM EST [facility] Blood 11/04/2025 5:18 AM EST 11/04/2025 5:19 AM EST us Vani Winkler MD POINT OF CARE TEST ORDERABLE S Final Result [facility] [address] [place] [address]. [address] * Phosphorus (11/04/2025 3:39 AM EST) Pathologist [facility] Phosphorus 3.4 2.1 - 4.7 mg/dL 11/04/2025 4:36 AM EST [facility] Plasma 11/04/2025 3:39 AM EST 11/04/2025 3:45 AM EST us Aspen Parr MD LAB BLOOD ORDERABLES Final Resul t Performing Organization Address City/[facility] Co de Phone Number [facility] [address] [place] [address]. [address] * Magnesium (11/04/2025 3:39 AM EST) Magnesium 1.7 1.5 - 2.5 mg/dL 11/04/2025 4:36 AM EST [facility] Plasma 11/04/2025 3:39 AM EST 11/04/2025 3:45 AM EST Aspen Parr MD LAB BLOOD ORDERABLES Final Resul t Performing Organization Address [facility] Co de Phone Number [facility] [address] [place] [address]. [address] * (ABNORMAL) CBC (11/04/2025 3:39 AM EST) WBC 14.0(H) 3.8 - 10.8 10E3/uL 11/04/2025 5:22 AM EST [facility] Comment:WBC VERIFIED RBC 2.59(L) 4.20 - 5.80 10E6/uL 11/04/2025 5:22 AM EST [facility] Hemoglobin 8.5(L) 13.2 - 17.1 g/dL 11/04/2025 5:22 AM EST [facility] Hematocrit 23.9(L) 38.5 - 50.0 % 11/04/2025 5:22 AM EST [facility] MCV 92.4 80.0 - 100.0 fL 11/04/2025 5:22 AM EST [facility] MCH 33.0 27.0 - 33.0 pg 11/04/2025 5:22 AM EST [facility] MCHC 35.7 32.0 - 36.0 g/dL 11/04/2025 5:22 AM EST [facility] Comment:Specimen warmed. RDW 17.8(H) 11.0 - 15.0 % 11/04/2025 5:22 AM EST [facility] Platelets 223 140 - 400 10E3/uL 11/04/2025 5:22 AM [facility] Comment:Specimen checked for clots. None detected. MPV 7.5 7.5 - 11.5 fL 11/04/2025 5:22 AM EST [facility] Whole Blood 11/04/2025 3:39 AM EST 11/04/2025 3:45 AM EST us Aspen Parr MD LAB BLOOD ORDERABLES Final Resul t [facility] [address] * (ABNORMAL) Basic metabolic panel (11/04/2025 3:39 AM EST) Sodium 136 133 - 146 mmol/L 11/04/2025 4:36 AM EST [facility] Potassium 4.2 3.5 - 5.3 mmol/L 11/04/2025 4:36 AM EST [facility] Chloride 106 98 - 110 mmol/L 11/04/2025 4:36 AM EST [facility] CO2 23 21 - 33 mmol/L 11/04/2025 4:36 AM EST [facility] Comment:High lactate dehydro genase concentrations in patient samples may cause falsely increased bicarbonate results. If markedly elevated LDH is observed or suspected, please assess results in conjunction with patient`s clinical presentation. In cases of discrepant results, consider evaluating CO2 in with a blood gas order. Anion Gap 7 3 - 16 mmol/L 11/04/2025 4:36 AM EST [facility] BUN 19 7 - 25 mg/dL 11/04/2025 4:36 AM EST [facility] Creatinine 1.04 0.60 - 1.30 mg/dL 11/04/2025 4:36 AM EST [facility] Glucose 123(H) 70 - 100 mg/dL 11/04/2025 4:36 AM EST [facility] Calcium 7.9(L) 8.6 - 10.3 mg/dL 11/04/2025 4:36 AM EST [facility] Osmolality, Calculated 286 278 - 305 mOsm/kg 11/04/2025 4:36 AM EST [facility] EGFR 80 11/04/2025 4:36 AM EST [facility] Comment:As of 2022, the [...] MD LAB BLOOD ORDERABLES Final Resul t [facility] [address] [place] [address] [place] [address] * (ABNORMAL) Hepatic Function Panel (11/04/2025 3:39 AM EST) Total Bilirubin 7.1(H) 0.0 - 1.5 mg/dL 11/04/2025 4:36 AM EST [facility] Bilirubin, Direct 4.22(H) 0.00 - 0.40 mg/dL 11/04/2025 4:36 AM EST [facility] AST 40(H) 13 - 39 U/L 11/04/2025 4:36 AM EST [facility] ALT 56(H) 7 - 52 U/L 11/04/2025 4:36 AM EST [facility] Alkaline Phosphatase 325(H) 36 - 125 U/L 11/04/2025 4:36 AM EST [facility] Total Protein 5.9(L) 6.4 - 8.9 g/dL 11/04/2025 4:36 AM EST [facility] Albumin 2.9(L) 3.5 - 5.7 g/dL 11/04/2025 4:36 AM EST [facility] Bilirubin, Indirect 2.88(H) 0.00 - 1.10 mg/dL 11/04/2025 4:36 AM EST [facility] Plasma 11/04/2025 3:39 AM EST 11/04/2025 3:45 AM EST us Aspen Parr MD LAB BLOOD ORDERABLES Final Resul t Performing Organization Address [facility]/ZIP Co de Phone Number [facility] [address] * Transfuse RBC Transfusion Rate: Per dept [...] - 100 mg/dL 11/03/2025 11:38 PM EST [facility] Blood 11/03/2025 11:3 8 PM EST 11/03/2025 11:38 PM EST us Vani Winkler MD POINT OF CARE TEST ORDERABLE S Final Result [facility] [address] [place] [address], [facility] * (ABNORMAL) CBC (11/03/2025 9:14 PM EST) WBC 13.2(H) 3.8 - 10.8 10E3/uL 11/03/2025 10:47 PM EST [facility] RBC 2.13(L) 4.20 - 5.80 10E6/uL 11/03/2025 10:47 PM EST [facility] Hemoglobin 7.2(L) 13.2 - 17.1 g/dL 11/03/2025 10:47 PM EST [facility] Hematocrit 20.1(L) 38.5 - 50.0 % 11/03/2025 10:47 PM EST [facility] MCV 94.3 80.0 - 100.0 fL 11/03/2025 10:47 PM EST [facility] MCH 33.6(H) 27.0 - 33.0 pg 11/03/2025 10:47 PM EST [facility] MCHC 35.6 32.0 - 36.0 g/dL 11/03/2025 10:47 PM EST [facility] RDW 17.9(H) 11.0 - 15.0 % 11/03/2025 10:47 PM EST [facility] Platelets 240 140 - 400 10E3/uL 11/03/2025 10:47 PM EST [facility] MPV 7.6 7.5 - 11.5 fL 11/03/2025 10:47 PM EST [facility] Whole Blood 11/03/2025 9:1 4 PM EST 11/03/2025 9:17 PM EST us Keith Grimm [employer] LAB BLOOD ORDERABLES Final Resu lt Performing Organization Address City/[facility]/ZIP Co de Phone Number [facility] [address] [facility]. [address] * (ABNORMAL) POC Glucose Monitoring Device (11/03/2025 6:00 PM EST) POC Glucose Monitoring Device 345(H) 70 - 100 mg/dL 11/03/2025 6:00 PM EST [facility] Blood 11/03/2025 6:00 PM EST 11/03/2025 6:00 PM EST Vani Winkler MD POINT OF CARE TEST ORDERABLE S Final Result Performing Organization Address [facility] Co de Phone Number [facility] [address] [facility]. [address] * (ABNORMAL) Haptoglobin (11/03/2025 1:52 PM EST) Haptoglobin <30(L) 44 - 215 mg/dL 11/03/2025 2:31 PM EST [facility] Serum 11/03/2025 1:52 PM EST 11/03/2025 1:56 PM EST us Keith Grimm MORTG[employer] ANALYST LAB BLOOD ORDERABLES Final Resu lt Performing Organization Address [facility] Co de Phone Number [facility] [address] [facility]. [address] * (ABNORMAL) Lactate Dehydrogenase (11/03/2025 1:52 PM EST) LD 293(H) 110 - 270 U/L 11/03/2025 2:23 PM EST [facility] Plasma 11/03/2025 1:52 PM EST 11/03/2025 1:55 PM EST us Keith Grimm MORTG[employer] ANALYST LAB BLOOD ORDERABLES Final Resu lt [facility] [address] * (ABNORMAL) CBC (11/03/2025 1:52 PM EST) WBC 11.3(H) 3.8 - 10.8 10E3/uL 11/03/2025 2:55 PM EST [facility] RBC 2.01(L) 4.20 - 5.80 10E6/uL 11/03/2025 2:55 PM EST [facility] Hemoglobin 7.1(L) 13.2 - 17.1 g/dL 11/03/2025 2:55 PM EST [facility] Hematocrit 19.3(L) 38.5 - 50.0 % 11/03/2025 2:55 PM EST [facility] MCV 95.9 80.0 - 100.0 fL 11/03/2025 2:55 PM EST [facility] MCH 35.2(H) 27.0 - 33.0 pg 11/03/2025 2:55 PM EST [facility] MCHC 36.7(H) 32.0 - 36.0 g/dL 11/03/2025 2:55 PM EST [facility] RDW 17.3(H) 11.0 - 15.0 % 11/03/2025 2:55 PM EST [facility] Platelets 220 140 - 400 10E3/uL 11/03/2025 2:55 PM EST [facility] Comment:Specimen checked for clots. None detected. MPV 7.5 7.5 - 11.5 fL 11/03/2025 2:55 PM EST [facility] Whole Blood 11/03/2025 1:52 PM EST 11/03/2025 1:56 PM EST [facility] BLOOD ORDERABLES Final Resu lt [facility] [address] * (ABNORMAL) POC Glucose Monitoring Device (11/03/2025 11:47 AM EST) POC Glucose Monitoring Device 225(H) 70 - 100 mg/dL 11/03/2025 11:49 AM EST [facility] Blood 11/03/2025 11:4 7 AM EST 11/03/2025 11:49 AM EST Vani Winkler MD POINT OF CARE TEST ORDERABLE S Final Result Performing Organization Address [facility] [facility] Co de Phone Number [facility] [address] * Transfuse RBC Transfusion Rate: Per dept routine (11/03/2025 10:28 AM EST) Aspen Parr MD NURSING TREATMENT ORDERABLES - B LOOD ADMIN Final Result Performing Organization Address [facility] Co de Phone Number EXTERNAL * Transfuse RBC Transfusion Rate: Per dept routine, 2 Units (11/03/2025 10:28 AM EST) Aspen Parr MD NURSING TREATMENT ORDERABLES - B LOOD ADMIN Edited Result - Final Performing Organization Address [facility] de Phone Number EXTERNAL * US Abdomen Limited (11/03/2025 10:05 AM EST) Anatomical Region Laterality Modality Abdomen, Pelvis Ultrasound 11/03/2025 9:0 8 AM EST Impressions 11/03/2025 11:24 AM EST [...] EXAM: US ABDOMEN LIMITED EXAM: US DUPLEX [id number] COMPLETE INDICATION: Other - Must specify in [...] EXAM: US ABDOMEN LIMITED EXAM: US DUPLEX [id number] COMPLETE INDICATION: Other - Must specify in [...] US ORDERABLES Final Result * US Duplex Buk-Ody-Topffdp Comp (11/03/2025 10:05 AM EST) Anatomical Region [...] EXAM: US ABDOMEN LIMITED EXAM: US DUPLEX [id number] COMPLETE INDICATION: Other - Must specify in [...] Left hepatic artery: 0.59-0.61 Procedure Note Lori Nolbe MD - 11/03/2025 EXAM: US ABDOMEN LIMITED EXAM: US DUPLEX [id number] COMPLETE INDICATION: Other - Must specify in [...] 11/03/2025 11:24 AM EST Aspen Parr MD [facility] ORDERABLES Final Result * Tacrolimus level (11/03/2025 6:46 AM EST) Tacrolimus (LC-MS) 9.2 3.0 - 15.0 ng/mL 11/03/2025 12:32 PM EST [facility] Comment:Performed via liquid chromatography tandem mass spectrometry. Detection limit: 1 ng/mL. Individual target concentrations may vary due to target organ and time after transplant. This test has been developed and its performance characteristics determined by [facility] which is certified under the [...] ORDERABLES Final Resul t Performing Organization Address [facility] de Phone Number [facility] [address] [place] [address]. [address] * Phosphorus (11/03/2025 6:46 AM EST) Phosphorus 3.1 2.1 - 4.7 mg/dL 11/03/2025 8:18 AM EST [facility] Plasma 11/03/2025 6:46 AM EST 11/03/2025 6:54 AM EST Aspen Parr MD LAB BLOOD ORDERABLES Final Resul t Performing Organization Address [facility] de Phone Number [facility] [address] [place] [address]. [address] * Magnesium (11/03/2025 6:46 AM EST) Magnesium 1.6 1.5 - 2.5 mg/dL 11/03/2025 8:18 AM EST [facility] Plasma 11/03/2025 6:46 AM EST 11/03/2025 6:54 AM EST Aspen Parr MD LAB BLOOD ORDERABLES Final Resul t Performing Organization Address [facility] de Phone Number [facility] [address] [place] [address]. [address] * (ABNORMAL) CBC (11/03/2025 6:46 AM EST) WBC 12.6(H) 3.8 - 10.8 10E3/uL 11/03/2025 9:08 AM EST [facility] RBC 1.78(L) 4.20 - 5.80 10E6/uL 11/03/2025 9:08 AM EST [facility] Hemoglobin 6.2(L) 13.2 - 17.1 g/dL 11/03/2025 9:08 AM EST [facility] Hematocrit 17.2(L) 38.5 - 50.0 % 11/03/2025 9:08 AM EST [facility] MCV 96.6 80.0 - 100.0 fL 11/03/2025 9:08 AM EST [facility] MCH 34.8(H) 27.0 - 33.0 pg 11/03/2025 9:08 AM EST [facility] MCHC 36.1(H) 32.0 - 36.0 g/dL 11/03/2025 9:08 AM EST [facility] RDW 17.8(H) 11.0 - 15.0 % 11/03/2025 9:08 AM EST [facility] Platelets 228 140 - 400 10E3/uL 11/03/2025 9:08 AM [facility] MPV 7.4(L) 7.5 - 11.5 fL 11/03/2025 9:08 AM [facility] Whole Blood 11/03/2025 6:46 AM EST 11/03/2025 6:54 AM EST us Aspen Parr MD LAB BLOOD ORDERABLES Final Resul t Performing Organization Address City/State/[facility] Co de Phone Number [facility] [address] * (ABNORMAL) Basic metabolic panel (11/03/2025 6:46 AM EST) Sodium 133 133 - 146 mmol/L 11/03/2025 8:18 AM EST [facility] Potassium 3.9 3.5 - 5.3 mmol/L 11/03/2025 8:18 AM EST [facility] Chloride 105 98 - 110 mmol/L 11/03/2025 8:18 AM EST [facility] CO2 21 21 - 33 mmol/L 11/03/2025 8:18 AM EST [facility] Comment:High lactate dehydro genase concentrations in patient samples may cause falsely increased bicarbonate results. If markedly elevated LDH is observed or suspected, please assess results in conjunction with patient`s clinical presentation. In cases of discrepant results, consider evaluating CO2 in with a blood gas order. Anion Gap 7 3 - 16 mmol/L 11/03/2025 8:18 AM EST [facility] BUN 25 7 - 25 mg/dL 11/03/2025 8:18 AM EST [facility] Creatinine 1.00 0.60 - 1.30 mg/dL 11/03/2025 8:18 AM EST [facility] Glucose 144(H) 70 - 100 mg/dL 11/03/2025 8:18 AM EST [facility] Calcium 7.9(L) 8.6 - 10.3 mg/dL 11/03/2025 8:18 AM EST [facility] Osmolality, Calculated 283 278 - 305 mOsm/kg 11/03/2025 8:18 AM EST [facility] EGFR 84 11/03/2025 8:18 AM EST [facility] Comment:As of 2022, the [...] MD LAB BLOOD ORDERABLES Final Resul t [facility] [address] * (ABNORMAL) Hepatic Function Panel (11/03/2025 6:46 AM EST) Total Bilirubin 9.2(H) 0.0 - 1.5 mg/dL 11/03/2025 8:18 AM EST [facility] Bilirubin, Direct 5.59(H) 0.00 - 0.40 mg/dL 11/03/2025 8:18 AM EST [facility] AST 47(H) 13 - 39 U/L 11/03/2025 8:18 AM EST [facility] ALT 59(H) 7 - 52 U/L 11/03/2025 8:18 AM EST [facility] Alkaline Phosphatase 303(H) 36 - 125 U/L 11/03/2025 8:18 AM EST [facility] Total Protein 5.1(L) 6.4 - 8.9 g/dL 11/03/2025 8:18 AM EST [facility] Albumin 2.7(L) 3.5 - 5.7 g/dL 11/03/2025 8:18 AM EST [facility] Bilirubin, Indirect 3.61(H) 0.00 - 1.10 mg/dL 11/03/2025 8:18 AM EST [facility] Plasma 11/03/2025 6:46 AM EST 11/03/2025 6:54 AM EST us Aspen Parr MD LAB BLOOD ORDERABLES Final Resul t [facility] [address] * Transfuse RBC Transfusion Rate: Per dept routine (11/03/2025 6:23 AM EST) us Aspen Parr MD NURSING TREATMENT ORDERABLES - B LOOD ADMIN Final Result EXTERNAL * (ABNORMAL) POC Glucose Monitoring Device (11/03/2025 5:45 AM EST) POC Glucose Monitoring Device 173(H) 70 - 100 mg/dL 11/03/2025 5:46 AM EST [facility] Blood 11/03/2025 5:45 AM EST 11/03/2025 5:46 AM EST Vani Winkler MD POINT OF CARE TEST ORDERABLE S Final Result Performing Organization Address [facility] Co de Phone Number [facility] [address] * Clostridium difficile DNA Amplification (11/03/2025 5:21 AM EST) [facility] Clost. Diff DNA Amp. Negative Negative 11/03/2025 5:50 PM EST [facility] Comment:Positive indicates t oxigenic C. [...] ORDERABLE S Final Result Performing Organization Address [facility] Co de Phone Number [facility] [address] * Enteric Pathogen Panel (11/03/2025 5:21 AM EST) [facility] Campylobacter Group (C. ecoli, C. jejuni, C. carie) Not Detected Not Detected 11/03/2025 11:16 AM EST [facility] Salmonella species Not Detected Not Detected 11/03/2025 11:16 AM EST [facility] Shigella species Not Detected Not Detected 11/03/2025 11:16 AM EST [facility] Vibrio Group (Vibrio cholerae, Vibrio parahaemolyticus) Not Detected Not Detected 11/03/2025 11:16 AM EST [facility] Yersinia enterocolitica Not Detected Not Detected 11/03/2025 11:16 AM EST [facility] Shiga toxin 1 Not Detected Not Detected 11/03/2025 11:16 AM EST [facility] Shiga toxin 2 Not Detected Not Detected 11/03/2025 11:16 AM EST [facility] Norovirus Not Detected Not Detected 11/03/2025 11:16 AM EST [facility] Rotavirus Not Detected Not Detected 11/03/2025 11:16 AM EST [facility] Comment: The Enteric Pathogen Panel [...] EST 11/03/2025 7:45 AM EST Comment:Yael Rhoades [facility] - 11/03/2025 11:16 AM EST The specimen was leaking upon receipt in the laboratory.Results may be affected. Aspen Parr MD BODY FLUIDS AND STOOLS ORDERABLE S Final Result [facility] [address] * Histoplasma/Blastomyces Ag, EIA, U (11/03/2025 3:20 AM EST) Histoplasma/Blasto myces Ag Result (Urine) Not Detected Not Detected 11/10/2025 10:50 AM EST [facility] Comment: No antigen from Histoplasma or Blastomyces detected. False negative results may occur depending on extent of disease, and/or site of infection. Repeat testing on a new specimen if clinically indicated. Histoplasma/Blasto myces Ag Value (Urine) Not Detected ng/mL 11/10/2025 10:50 AM EST [facility] Comment: ADDITIONAL INFORMATION This test was developed and its performance characteristics determined by [facility] in a manner consistent with CLIA requirements. This test has not been cleared or approved by the U.S. Food and Drug Administration. Test Performed by: [facility] [address] [place] [address] [employer] Installer: Katherin Galindo Ph.D.; CLIA# [id number] Urine URINE SPECIMEN / Unknown 11/03/2025 3:20 AM EST 11/10/2025 10:50 AM EST Aspen Parr MD URINE ORDERABLES Final Result Performing Organization Address City/State/[facility] Co de Phone Number [facility] [address] * (ABNORMAL) Respiratory viral panel (11/03/2025 2:51 AM EST) Pathologist [facility] Adenovirus Not Detected Not Detected 11/03/2025 6:09 AM EST [facility] Coronavirus (229E,HKU1,NL63,OC 43) Detected(A) Not Detected 11/03/2025 6:09 AM EST [facility] SARS-CoV-2 Not Detected Not Detected 11/03/2025 6:09 AM EST [facility] Human Metapneumovirus Not Detected Not Detected 11/03/2025 6:09 AM EST [facility] Human Rhinovirus/Enterov irus Not Detected Not Detected 11/03/2025 6:09 AM EST [facility] Influenza A Not Detected Not Detected 11/03/2025 6:09 AM [facility] Influenza A H1 Not Detected Not Detected 11/03/2025 6:09 AM [facility] Influenza A/H1-2009 Not Detected Not Detected 11/03/2025 6:09 AM [facility] Influenza A H3 Not Detected Not Detected 11/03/2025 6:09 AM [facility] Influenza B Not Detected Not Detected 11/03/2025 6:09 AM EST [facility] Parainfluenza 1 Not Detected Not Detected 11/03/2025 6:09 AM EST [facility] Parainfluenza 2 Not Detected Not Detected 11/03/2025 6:09 AM [facility] Parainfluenza 3 Not Detected Not Detected 11/03/2025 6:09 AM [facility] Parainfluenza 4 Not Detected Not Detected 11/03/2025 6:09 AM [facility] Resp. Syncycial Virus A Not Detected Not Detected 11/03/2025 6:09 AM EST [facility] Resp. Syncycial Virus B Not Detected Not Detected 11/03/2025 6:09 AM EST [facility] Chlamydia pneumoniae Not Detected Not Detected 11/03/2025 6:09 AM EST [facility] Mycoplasma pneumoniae Not Detected Not Detected 11/03/2025 6:09 AM EST [facility] Comment: The Respiratory Viral-Bacterial Panel [...] Test results have been sent to the [facility] in accordance with state requirements. For a fact sheet for healthcare providers, see https://www.fda.gov/media/272988/download. For a fact sheet for patients, see https://www.fda.gov/media/515982/download. Nasopharyngeal Swab NASOPHARYNGEAL STRUCTURE / Unknown 11/03/2025 2:51 AM EST 11/03/2025 3:40 AM EST us Aspen Parr MD BODY FLUIDS AND STOOLS ORDERABLE S Final Result [facility] [address] * Strep Pneumo-Legionella Urine Antigen (11/03/2025 2:51 AM EST) Strept Pneumo Ag Negative Negative 11/03/2025 6:12 AM EST [facility] Legionella Antigen Negative Negative 11/03/2025 6:12 AM EST [facility] Urine URINE SPECIMEN / Unknown 11/03/2025 2:51 AM EST 11/03/2025 3:39 AM EST [facility] - 11/03/2025 6:12 AM EST Positive indicates detection of either Streptococcus pneumoniae antigen or Legionella pneumophila serogroup 1 antigen. Negative results do not rule out pneumococcal infection or infection with L. pneumophila serogroup 1, other serogroups of L. pneumophila, or other Legionella species. us Aspen Parr MD URINE ORDERABLES Final Result [facility] [address] [place] [address], [facility] * (ABNORMAL) Urinalysis w/Rfl to Microscopic (11/03/2025 2:51 AM EST) Color, UA Yellow Yellow,Straw 11/03/2025 3:32 AM [facility] Clarity, UA Clear Clear 11/03/2025 3:32 AM [facility] Specific Reynolds, UA >1.035(H) 1.005 - 1.035 11/03/2025 3:32 AM [facility] pH, UA 6.5 5.0 - 8.0 11/03/2025 3:32 AM [facility] Protein, UA Negative Negative mg/dL 11/03/2025 3:32 AM [facility] Glucose, UA Negative Negative mg/dL 11/03/2025 3:32 AM [facility] Ketones, UA Negative Negative mg/dL 11/03/2025 3:32 AM [facility] Bilirubin, UA Negative Negative 11/03/2025 3:32 AM [facility] Blood, UA Negative Negative 11/03/2025 3:32 AM [facility] Nitrite, UA Negative Negative 11/03/2025 3:32 AM [facility] Urobilinogen, UA <2.0 0.2 - 1.9 mg/dL 11/03/2025 3:32 AM [facility] Leukocyte Esterase, UA Small(A) Negative 11/03/2025 3:32 AM EST [facility] RBC, UA 3 0 - 3 /HPF 11/03/2025 3:32 AM EST [facility] WBC, UA 16(H) 0 - 5 /HPF 11/03/2025 3:32 AM EST [facility] Squam Epithel, UA <1 0 - 5 /HPF 11/03/2025 3:32 AM EST [facility] Urine 11/03/2025 2:51 AM EST 11/03/2025 2:59 AM EST us Aspen Parr MD URINE ORDERABLES Final Result [facility] [address] [place] [address], [facility] * CT Abdomen and Pelvis With IV [...] - 100 mg/dL 11/03/2025 12:27 AM EST [facility] Blood 11/03/2025 12:2 6 AM EST 11/03/2025 12:27 AM EST Vani Winkler MD POINT OF CARE TEST ORDERABLE S Final Result [facility] [address] [facility]. [address] * Antibody Screen (11/02/2025 11:44 PM EST) Pathologist [facility] Antibody Screen Negative 11/03/2025 12:25 AM EST [facility] Blood 11/02/2025 11:4 4 PM EST 11/02/2025 11:49 PM EST Narrative [facility] - 11/03/2025 12:44 AM EST Testing performed by [facility] Transfusion Service us Aspen Parr MD BLOOD BANK TEST ORDERABLES Final Result [facility] [address] * ABO/Rh (11/02/2025 11:44 PM EST) ABO Grouping A 11/03/2025 12:47 AM EST [facility] Rh Type Positive 11/03/2025 12:47 AM EST [facility] Blood 11/02/2025 11:4 4 PM EST 11/02/2025 11:49 PM EST Aspen Parr MD BLOOD BANK TEST ORDERABLES Final Result [facility] [address] * Histoplasma/Blastomyces Ag, EIA, S (11/02/2025 9:13 PM EST) Histoplasma/Blasto myces Ag Result (Serum) Not Detected Not Detected 11/09/2025 12:42 PM EST [facility] Comment: No antigen from Histoplasma or Blastomyces detected. False negative results may occur depending on extent of disease, and/or site of infection. Repeat testing on a new specimen if clinically indicated. Histoplasma/Blasto myces Ag Value (Serum) Not Detected ng/mL 11/09/2025 12:42 PM EST [facility] Comment: ADDITIONAL INFORMATION This test was developed and its performance characteristics determined by [facility] in a manner consistent with CLIA requirements. This test has not been cleared or approved by the U.S. Food and Drug Administration. Test Performed by: [facility] [place] [id number] [place] [address] [employer] Installer: Katherin Galindo Ph.D.; CLIA# [id number] Serum SERUM SPECIMEN / Unknown 11/02/2025 9:13 PM EST 11/09/2025 12:42 PM EST Comment:S Aspen Parr MD LAB BLOOD ORDERABLES Final Resul t [facility] [address] * Blood culture-Peripheral (Blood) (11/02/2025 9:13 PM EST) Culture Result No Growth After 5 Days [facility] Blood BLOOD SPECIMEN / Unknown 11/02/2025 9:13 PM EST 11/02/2025 9:33 PM EST Narrative [facility] - 11/07/2025 9:49 PM EST Please obtain two separate peripheral sticks us Aspen Parr MD MICROBIOLOGY - GENERAL ORDERABLE S Final Result [facility] [address] * (ABNORMAL) Hepatic Function Panel (11/02/2025 9:08 PM EST) Total Bilirubin 7.2(H) 0.0 - 1.5 mg/dL 11/02/2025 10:01 PM EST [facility] Bilirubin, Direct 4.34(H) 0.00 - 0.40 mg/dL 11/02/2025 10:01 PM EST [facility] AST 37 13 - 39 U/L 11/02/2025 10:01 PM EST [facility] ALT 62(H) 7 - 52 U/L 11/02/2025 10:01 PM EST [facility] Alkaline Phosphatase 303(H) 36 - 125 U/L 11/02/2025 10:01 PM EST [facility] Total Protein 5.4(L) 6.4 - 8.9 g/dL 11/02/2025 10:01 PM EST [facility] Albumin 2.8(L) 3.5 - 5.7 g/dL 11/02/2025 10:01 PM EST [facility] Bilirubin, Indirect 2.86(H) 0.00 - 1.10 mg/dL 11/02/2025 10:01 PM EST [facility] Plasma 11/02/2025 9:08 PM EST 11/02/2025 9:30 PM EST us Aspen Parr MD LAB BLOOD ORDERABLES Final Resul t [facility] [address] * (ABNORMAL) Magnesium (11/02/2025 9:08 PM EST) Magnesium 1.3(L) 1.5 - 2.5 mg/dL 11/02/2025 10:01 PM EST [facility] Plasma 11/02/2025 9:08 PM EST 11/02/2025 9:30 PM EST Aspen Parr MD LAB BLOOD ORDERABLES Final Resul t Performing Organization Address [facility]/ZIP Co de Phone Number [facility] [address] [facility]. [address] * (ABNORMAL) Renal Function Panel w/EGFR (11/02/2025 9:08 PM EST) Sodium 132(L) 133 - 146 mmol/L 11/02/2025 10:01 PM EST [facility] Potassium 4.6 3.5 - 5.3 mmol/L 11/02/2025 10:01 PM EST [facility] Chloride 103 98 - 110 mmol/L 11/02/2025 10:01 PM [facility] CO2 22 21 - 33 mmol/L 11/02/2025 10:01 PM EST [facility] Comment:High lactate dehydro genase concentrations in patient samples may cause falsely increased bicarbonate results. If markedly elevated LDH is observed or suspected, please assess results in conjunction with patient`s clinical presentation. In cases of discrepant results, consider evaluating CO2 in with a blood gas order. Anion Gap 7 3 - 16 mmol/L 11/02/2025 10:01 PM EST [facility] BUN 29(H) 7 - 25 mg/dL 11/02/2025 10:01 PM EST [facility] Creatinine 1.17 0.60 - 1.30 mg/dL 11/02/2025 10:01 PM [facility] Glucose 289(H) 70 - 100 mg/dL 11/02/2025 10:01 PM [facility] Calcium 7.8(L) 8.6 - 10.3 mg/dL 11/02/2025 10:01 PM EST [facility] Phosphorus 3.4 2.1 - 4.7 mg/dL 11/02/2025 10:01 PM EST [facility] Albumin 2.8(L) 3.5 - 5.7 g/dL 11/02/2025 10:01 PM EST [facility] Osmolality, Calculated 290 278 - 305 mOsm/kg 11/02/2025 10:01 PM EST [facility] EGFR 70 11/02/2025 10:01 PM EST [facility] Comment:As of 2022, the [...] MD LAB BLOOD ORDERABLES Final Resul t [facility] [address] * (ABNORMAL) CBC (11/02/2025 9:08 PM EST) WBC 12.2(H) 3.8 - 10.8 10E3/uL 11/02/2025 10:19 PM EST [facility] RBC 1.61(L) 4.20 - 5.80 10E6/uL 11/02/2025 10:19 PM EST [facility] Hemoglobin 5.7(LL) 13.2 - 17.1 g/dL 11/02/2025 10:19 PM EST [facility] Comment: Results verified by repeat analysis. Critical Result HGB:5.7 Called to and read back by: ERICA BENJAMIN RN at: 11/02/2025 22:18:41 by:DEJON Hematocrit 16.0(L) 38.5 - 50.0 % 11/02/2025 10:19 PM EST [facility] MCV 98.9 80.0 - 100.0 fL 11/02/2025 10:19 PM EST [facility] MCH 35.5(H) 27.0 - 33.0 pg 11/02/2025 10:19 PM EST [facility] MCHC 35.9 32.0 - 36.0 g/dL 11/02/2025 10:19 PM EST [facility] Comment:Specimen warmed. RDW 17.6(H) 11.0 - 15.0 % 11/02/2025 10:19 PM EST [facility] Platelets 266 140 - 400 10E3/uL 11/02/2025 10:19 PM EST [facility] MPV 7.9 7.5 - 11.5 fL 11/02/2025 10:19 PM EST [facility] Whole Blood 11/02/2025 9:08 PM EST 11/02/2025 9:30 PM EST us Aspen Parr MD LAB BLOOD ORDERABLES Final Resul t Performing Organization Address City/State/[facility] Co de Phone Number [facility] [address] * Fungitell (11/02/2025 9:08 PM EST) Fungitell Value <31.25 pg/mL 4:19 PM EST [facility] Reference Value Comment 4:19 PM EST [facility] Comment:Negative: <60, Posit silverio: >/=60 Clinical Relevance Notes 2024 4:19 PM EST [facility] Comment: The Fungitell test is [...] Cryptococcus, which produce very low levels of (1,3)-mfju-R-snhhqc. This test will not detect the zygomycetes, such as Absidia, Blastomyces, Mucor, and Rhizopus, which are not known to produce (1,3)-mdyf-I-jzbhxe. In addition, the yeast phase of Blastomyces dermatitidis produces little (1,3)-stws-H-pysikc and may not be detected by the assay. Disclaimer: Notes 11/06/2025 4:19 PM EST [facility] Comment: This test has been cleared or approved for diagnostic use by the U.[place]. Food and Drug Administration. Performance characteristics were verified by [employer]. Electronically signed by: Comment 11/06/2025 4:19 PM EST [facility] Comment:Kesha Lowrytell Result Comment 11/06/20 4:19 PM EST [facility] Comment:Negative Interpretation Notes 11/06/2025 4:19 PM EST [facility] Comment: (1,3) Kkfp-J-Hkawte was NOT DETECTED in the sample. Reasons for negative results could include the patient being in the early stage of infection before detectable levels of (1,3) Guvr-H-Fzcwra are present. Clinical diagnosis should be made in the context of the patient's complete medical history. Serum 11/02/2025 9:08 PM EST 11/06/2025 5:07 PM EST Narrative [facility] - 11/06/2025 5:07 PM EST PERFORMED AT: [employer] [address] [facility] [address] [place], [place] [id number] OPTO MECHANICAL ENGINEER: Serge Anderson, PhD PHONE: [phone] us Aspen Parr MD LAB BLOOD ORDERABLES Final Resul t [facility] [address] [place] [address], [facility] * Jose-Mims Virus (EBV) PCR (11/02/2025 9:08 PM EST) EBV DNA, Quantitative PCR <35 IU/mL 11/05/2025 2:02 PM EST [facility] EBV DNA, Log10 See Note log 10 IU/mL 11/05/2025 2:02 PM EST [facility] Comment: Beginning March 09, 2023, [facility] has transitioned EBV viral load testing to [...] ORDERABLES Final Resul t Performing Organization Address City/State/[facility] Co de Phone Number [facility] [address] [id number] * Cryptococcus Ag (11/02/2025 9:08 PM EST) Crypto Ag, Ser Negative Negative 11/02/2025 10:33 PM EST [facility] Crypto Ag Titer, Ser Not Applicable 11/02/2025 10:33 PM EST [facility] Serum SERUM SPECIMEN / Unknown 11/02/2025 9:08 PM EST 11/02/2025 9:56 PM EST Comment:S Aspen Parr MD LAB BLOOD ORDERABLES Final Resul t Performing Organization Address City/State/[facility] Co de Phone Number [facility] [address] [facility]. [address] * Cytomegalovirus (CMV) PCR (11/02/2025 9:08 PM EST) [facility] CMV DNA Qnt Not Detected IU/mL 11/05/2025 11:37 AM EST [facility] Comment:Test methodology for CMV DNA quantification is an FDA-approved nucleic acid amplification assay. The Lower Limit of Quantitation (LLOQ) and Limit of Detection (LoD) for EDTA plasma is 34.5 IU/mL. The linear range of the assay is 34.5- 10,000,000 IU/mL. The reference range is Not Detected. Log10 CMV Qn DNA PI See Note log 10 IU/mL 11/05/2025 11:37 AM EST [facility] Comment:CMV DNA not detected Plasma 11/02/2025 9:08 PM EST 11/02/2025 9:36 PM EST Aspen Parr MD LAB BLOOD ORDERABLES Final Resul t Performing Organization Address [facility] de Phone Number [facility] [address] [facility]. [address] * Aspergillus Ag (11/02/2025 9:08 PM EST) [facility] Aspergillus Ag. 0.03 0.00 - 0.49 Index 11/07/2025 5:53 PM EST [facility] Serum SERUM SPECIMEN / Unknown 11/02/2025 9:08 PM EST 11/09/2025 12:07 PM EST Comment:S Aspen Parr MD BODY FLUIDS AND STOOLS ORDERABLE S Final Result Performing Organization Address [facility] Co de Phone Number [facility] [address] [facility]. [address] * Adenovirus PCR (11/02/2025 9:08 PM EST) [facility] Adenovirus, Quantitative PCR 0 0 - 0 copies/mL 11/07/2025 2:36 PM EST [facility] Comment: Testing performed by [facility], [address] [place] [address], [place], [place]. This test(s) was developed and its performance characteristics determined and validated by the Department of Pathology and Laboratory Medicine at [facility]. It has not been cleared or [...] ORDERABLES Final Resul t Performing Organization Address City/[facility]/ZIP Co de Phone Number [address] * Blood culture-Peripheral (Blood) (11/02/2025 9:08 PM EST) Culture Result No Growth After 5 Days [facility] Blood BLOOD SPECIMEN / Unknown 11/02/2025 9:08 PM EST 11/02/2025 9:33 PM EST Narrative [facility] - 11/07/2025 9:48 PM EST Please obtain two separate peripheral sticks Aspen Parr MD MICROBIOLOGY - GENERAL ORDERABLE S Final Result Performing Organization Address City/[facility]/ZIP Co de Phone Number [address] * (ABNORMAL) POC Glucose Monitoring Device (11/02/2025 8:51 PM EST) POC Glucose Monitoring Device 334(H) 70 - 100 mg/dL 11/02/2025 8:51 PM EST [facility] Blood 11/02/2025 8:51 PM EST 11/02/2025 8:51 PM EST Vani Winkler MD POINT OF CARE TEST ORDERABLE S Final Result [facility] [address] [place] [address], [facility] documented in this encounter Visit Diagnoses Diagnosis Immunosuppression (CMS-HCC)- Primary Hepatic encephalopathy (CMS-HCC) Hepatic encephalopathy Pre-transplant evaluation for chronic liver disease Encounter for pre-transplant evaluation for liver transplant Hyperbilirubinemia Disorders of bilirubin excretion Anemia, unspecified type [D64.9] Iron overload [E83.19] Disorders of iron metabolism Positive direct antiglobulin test (FRANSICO) [R76.89] Liver transplanted (CMS-HCC) Liver replaced by transplant Hyperbilirubinemia Disorders of bilirubin excretion documented in this encounter Administered Medications Inactive [...] times daily PRN, Heartburn, Indigestion, Starting on 11/05/25 at 0012 Given 11/05/2025 12:22 AM EST [...] grams or 250 mL for 25 grams. fentaNYL (SUBLIMAZE) injection PRN - One Step Medication Only, Starting on Wed11/05/25 at 1126, Intra-procedure(GI) Given 11/05/2025 11:26 AM EST 50 mcg glucose chewable tablet 12 g 12 g, [...] needed. Labeled tablet strength may vary by automotive service consultant (may be expressed as grams of carbohydrates) [...] Given 11/07/2025 9:06 AM EST 500 mg midazolam (PF) (VERSED) injection PRN - One Step Medication Only, Starting on Wed11/05/25 at 1126, Intra-procedure(GI) Given 11/05/2025 11:26 AM EST 2 mg mycophenolate (CELLCEPT) capsule 500 mg 500 mg, Oral, 2 times daily, First dose on Wed11/02/25 at 2100, LEVEL 2 HAZARDOUS MEDICATION Given 11/08/2025 8:07 AM EST 500 mg Given 11/07/2025 9:20 PM EST 500 mg Given 11/07/2025 9:06 AM EST 500 mg pantoprazole (PROTONIX) injection 40 mg 40 [...] in sodium chloride 0.9 % 100 mL Urnd1Nbj IVPB 3.375 g, Intravenous, at 25 mL/hr, Every 8 hours, First dose on Wed11/03/25 at 1900, For 16 doses, Use Susc9Qul Adapter - Mix Thoroughly Before Administration New [...] patient is non-communicative (CPOT 3-5), Starting on 11/05/25 at 1431 Given 11/08/2025 5:09 PM EST [...] Morales RN) 0906 (Given - Provider: Veronica Winter, SILVIO)2120 (Given - Provider: Jonathan Bazzi RN) 0807 (Given - Provider: Veronica Winter RN) atovaquone (MEPRON) suspension 1,500 mg 1,500 mg, Oral, Daily, First dose on Wed11/06/25 at 0900, ADMINISTER WITH MEALS. 0808 (Given - Provider: jB Sy RN) 0907 (Given - Provider: Veronica [...] Group 1) 0-10 Units, Subcutaneous, At Bedtime (2099), First dose on Wed11/05/25 at 2100, HIGH ALERT MEDICATION Onset of action is rapid. Give dose 5-10 minutes before meal. Have meal at bedside. 2228 (Given - Provider: Anum Morales RN) 2121 [...] Bj Sy RN) 0906 (Given - Provider: Veroniac Winter RN)1419 (Given - Provider: Veronica Winter [...] 2106 (Given - Provider: Anum Morales RN) 09 (Given - Provider: Veronica Winter RN)2121 (Given - Provider: Jonathan Bazzi RN) 0808 (Given - Provider: Veronica Winter RN) magnesium sulfate in sterile water 100 mL IVPB 4 g (COMPLETED) 4 g, Intravenous, at 25 mL/hr, Once, On Wed11/08/25 at 0800, For 1 dose 1158 (New Bag - Provider: Veronica Winter RN) methocarbamoL (ROBAXIN) tablet 500 mg 500 mg, Oral, 2 times daily, First dose on Wed11/02/25 at 2100 08 (Given - Provider: Bj Sy RN)2103 (Given - Provider: Anum Morales RN) 905 (Given - Provider: Veronica Winter RN)2120 (Given - Provider: Jonathan Bazzi RN) 0807 (Given - Provider: Veronica Winter RN) methylPREDNISolone sod suc(PF) (SOLU-medrol) SolR 125 mg (COMPLETED)(Linked Group 2) 125 mg, Intravenous, Every 24 hours, First dose (after last modification) on Wed11/07/25 at 1000, For 1 dose, MIX THOROUGHLY PRIOR TO ADMINISTRATION. 1215 (Given - Provider: Veroncia Winter RN) methylPREDNISolone sodium succinate (SOLU-medrol) 250 [...] RN)2103 (Given - Provider: Anum Morales RN) 09 (Given - Provider: Veronica Winter RN)2119 (Given - Provider: Jonathan Bazzi RN) 08 (Given - Provider: Veronica Winter RN) NIFEdipine (PROCARDIA-XL) 24 hr tablet 30 mg 30 mg, Oral, Daily, First dose on 11/03/25 at 0900, DO NOT CRUSH, On hold since 11/03/2025 at 0727 until manually unheld 0900 (Not Given - Provider: Bj Sy RN - Reason: Other - Comment: HELD BY md) 0900 (Automatically Held - Provider: Keith Grimm CNP) 0900 (Automatically Held - Provider: Keith Grimm CNP)2143 [...] in sodium chloride 0.9 % 100 mL Csxo5Jnw IVPB(Linked Group 3) 3.375 g, Intravenous, at 25 mL/hr, Every 8 hours, First dose on 11/03/25 at 1900, For 16 doses, Use Qgdu6Lbq Adapter - Mix Thoroughly Before Administration 0212 [...] Veronica Winter RN)0602 (Restarted - Provider: Veronica Witner RN)1001 (Stopped - Provider: Veroniac Winter RN)1424 (New Bag - Provider: Veronica [...] needed. Labeled tablet strength may vary by automotive service consultant (may be expressed as grams of carbohydrates) [...] Morales RN) 2120 (See Alternative - Provider: Joanthan Bazzi, SILVIO) 170 (Given - Provider: Veronica Winter RN) traMADoL (ULTRAM) tablet 50 mg(Linked Group 5) 50 mg, Oral, Every 6 hours PRN, severe pain (NRS 7-10) or if patient is non-communicative (CPOT 6-8), Starting on Wed11/05/25 at 1431 2104 (Given - Provider: Anum Morales RN) 2120 (Given - Provider: Jonathan Bazzi RN) 1708 (See Alternative - Provider: Veronica Winter [...] hours, First dose (after last modification) on Maris 11/08/25 at 1000, For 1 dose, MIX THOROUGHLY PRIOR TO ADMINISTRATION. Group 3: piperacillin-tazobactam (ZOSYN) 4.5 g in sodium chloride 0.9 % 100 mL Ucsi3Gyz (COMPLETED) 4.5 g, Intravenous, at 200 mL/hr, Once, On 11/03/25 at 1100, For 1 dose, Use Ldaa5Tfs Adapter - Mix Thoroughly Before Administration Followed by piperacillin-tazobactam (ZOSYN) 3.375 g in sodium chloride 0.9 % 100 mL Qdbs1Wzf IVPBJump to med 3.375 g, Intravenous, at 25 mL/hr, Every 8 hours, First dose on 11/03/25 at 1900, For 16 doses, Use Stgj6Jkl Adapter - Mix Thoroughly Before Administration Group [...] documented as of this encounter Care Teams Apiarist Relationship Specialty Start Date End Date Dr. Chris Medel MD [address] [place] [address] PCP - General Primary Care 10/25/25 documented as of this encounter
--- OUTSIDE RECORDS SUMMARY | 2025-11-12 07:17 | XMS_ITS | Encounter Summary ---
Author Organization [facility] Address [address] [place] [address] Care Team Providers Care Creative Designer Name Role Phone System, Provider Not [...] release of HIV test results or diagnoses. [id number] Reason for Visit * Reason Comments Appointment Advice Only Encounter Details Date Type Department Care Team (Late st Contact Info) Description 10/17/2025 Telephone [facility] Kidney Transplant at [address] [address] Lore Burgos MA Appointment; Advice [...] in the hospital Please call Stacy at [phone] documented in this encounter Plan of Treatment Not on file documented as of this encounter Visit Diagnoses Not on filedocumented in this encounter Additional Health Concerns Assessment Noted Time PHQ-9 Depression Total Score: 8 09/10/20 11:09 AM EDT documented as of this encounter Care Teams Creative Designer Relationship Specialty Start Date End Date System, Provider Not In PCP - General 09/10/25 10/24/25 documented as of this encounter
--- OUTSIDE RECORDS SUMMARY | 2025-11-12 07:17 | XMS_ITS | Encounter Summary ---
Author Organization [facility] Address [address] [place] [address] Care Team Providers Care Community Aide Name Role Phone Ruma Hernández SNOWBOARDING INSTRUCTOR Unavailable [phone] Chris Medel MD Primary Care Provider [phone] Reason for Visit * Reason Onset Date Comments HCN - Patient Message 10/15/2025 Encounter Details Date Type Department Care Team ([facility] Contact Info) Description 10/15/2025 Telephone [facility], [facility] Mineral Metabolism [address], [address] [place] [address] Moustapha Katz MD [address] [place] [address] HCN - Patient Message Social [...] do you attend [facility] or jainism services? More than 4 times per year 02/19/2025 Do you belong to any clubs o r organizations such as islam groups, unions, [employer] or athletic groups, or school groups? Yes [...] week 06/15/2025 How often do you attend [facility] or jainism services? More than 4 times per year 06/15/2025 Do you belong to any clubs o r organizations such as islam groups, unions, [employer] or athletic groups, or school groups? Yes [...] and heating? Not hard at all 06/15/2025 [facility] - Occupational Stress [...] drink first t luisa in the morning (EYE-POLICE ACADEMY PROGRAM COORDINATOR) to steady your nerves or to get rid of a hangover? 0 06/14/2025 CAGE Questionnaire Score 0 025 Utilities Answer Date Recorded In the past 12 months has th e [employer], gas, oil, or water company threatened to [...] r/s his 10/18 visit. Best contact number: [phone] (mobile) Optimal time of day to reach caller: ANYTIME Additional comments/information from caller: Note: Please do not reply to this message. Follow-up communication and further actions as a result of this message need to be communicated with the patient directly, if the patient is not active onMyChart. If the patient is active on MyChart, they will receive notification of the communication/outcome via [email or web address]. documented in this encounter Plan of Treatment Upcoming Encounters Date Type Department Care Team (Late st Contact Info) Description 11/27/2025 3:45 PM EST Office Visit Medical Office Building Urology [address], [address] [place] [address] Suhail Brock MD [address] [place] [address] 01/24/2026 4:40 PM EDT Office Visit [facility] [address], [address] [place] [address] Moustapha Katz MD [address] [place] [address] documented as of this encounter [...] as of this encounter Care Teams Community Aide Relationship Specialty [place] [address] PCP - General 03/14/25 Ruma Hernández APRN [address] [facility] [address] [place] [address] Referring Physician Gastroenterology 07/30/23 documented as of this encounter
--- OUTSIDE RECORDS SUMMARY | 2025-11-12 07:17 | XMS_ITS | Encounter Summary ---
Author Organization [facility] Address [address] [place] [address] Care Team Providers Care Casing Flusher Name Role Phone System, Provider Not In [...] release of HIV test results or diagnoses. [id number] Health Encounter Details Date Type Department Care [...] as of this encounter Functional Status * Communicable Disease Screening Question Answer Date of Assessment Author Have you been in contact wit h someone who was sick? No / Unsure 10/17/2025 11:42 PM Kira Chandler RN Do you have any of the following new or worsening symptoms? None of these 10/17/2025 11:42 PM Kira Chandler, R N * Travel Screening Question Answer Date of Assessment Author Have you traveled internatio sam or domestically in the last month? No 10/17/2025 11:42 PM Kira Arevalo RN documented as of this encounter Plan of Treatment Not on file documented as of this encounter Visit Diagnoses Not on filedocumented in this encounter Additional Health Concerns Assessment Noted Time PHQ-9 Depression Total Score: 8 09/10/20 11:09 AM EDT documented as of this encounter Care Teams Casing Flusher Relationship Specialty Start Date End Date System, Provider Not In PCP - General 09/10/25 10/24/25 documented as of this encounter
--- OUTSIDE RECORDS SUMMARY | 2025-11-12 07:17 | XMS_ITS | Encounter Summary ---
Author Organization [facility] Address [address] [place] [address] Care Team Providers Care Monitoring Manager Name [...] release of HIV test results or diagnoses. [id number] Health Encounter Details Date Type Department Care Team (Late st Contact Info) Description 10/18/2025 Chart Note [facility] Liver Transplant at [address] [address] Giovanna June, RN I introduced myself as inpatient liver food and beverage coordinator, explained Social History Tobacco Use Types [...] EST I introduced myself as inpatient liver food and beverage coordinator, explained role and provided my contact [...]
--- OUTSIDE RECORDS SUMMARY | 2025-11-12 07:17 | XMS_ITS | Encounter Summary ---
Author Organization [facility] Address [address] [place] [address] Care Team Providers Care Counter Control Operator Name Role Phone Ruma Hernández MARKING ROOM SUPERVISOR Unavailable [phone] Chris Medel MD Primary Care Provider [phone] Encounter Details Date Type Department Care Team (Late st Contact Info) Description 10/16/2025 Results Follow-Up [facility] Transplant Center [address] [place] [id number] Meaghan Le, RN [facility] LIVER [id number] [address] [place] [address] Social History Tobacco Use Types Packs/Day Years [...] do you attend [facility] or jehovah's witness services? More than 4 times per year 02/19/2025 Do you belong to any clubs o r organizations such as samaritan groups, unions, [employer] or athletic groups, or school groups? [...] 06/15/2025 [facility] - Occupational Stress Questionnaire Answer Date [...] drink first t luisa in the morning (EYE-CLIENT TECHNICAL SUPPORT ASSOCIATE) to steady your nerves or to get rid of a hangover? 0 06/14/2025 CAGE Questionnaire Score 0 025 Utilities Answer Date Recorded In the past 12 months has th e [employer], gas, oil, or water [employer] threatened to shut off services in [...] [address], [address] [place] [address] Suhail Brock MD [address] [facility] [address] [place] [address] 01/24/2026 4:40 PM EDT Office Visit [facility] [address], [address] [place] [address] Moustapha Katz MD [address] [place] [address] documented as of this encounter [...] documented as of this encounter Care Teams Counter Control Operator Relationship Specialty [place] [address] PCP - General 03/14/25 Ruma Hernández APRN [address] [place] [address] Referring Physician Gastroenterology 07/30/23 documented as of this encounter
--- OUTSIDE RECORDS SUMMARY | 2025-11-12 07:17 | XMS_ITS | Encounter Summary ---
Author Organization [facility] Address [address] [place] [address] Care Team Providers Care Land Economist Name Role Phone System, Provider Not In [...] release of HIV test results or diagnoses. [id number] Health Encounter Details Date Type Department Care Team (Late st Contact Info) Description 10/17/2025 Chart Note [facility] Liver Transplant at [address] [address] Maeve Hubbard, RN Per Dr Drew, patient [...] no extra vessels on 10/17/2025. EPIC and [employer] updated. documented in this encounter Plan of Treatment Not on file documented as of this encounter Visit Diagnoses Not on filedocumented in this encounter Additional Health Concerns Assessment Noted Time PHQ-9 Depression Total Score: 8 09/10/20 11:09 AM EDT documented as of this encounter Care Teams Land Economist Relationship Specialty Start Date End Date System, Provider Not In PCP - General 09/10/25 10/24/25 documented as of this encounter
--- OUTSIDE RECORDS SUMMARY | 2025-11-12 07:17 | XMS_ITS | Encounter Summary ---
Author Organization [facility] Address [address] [place] [address] Care Team Providers Care Map And Chart Mounter Name Role Phone Ruma Hernández HIGH LIFT DRIVER Unavailable [phone] Chris Medel MD Primary Care Provider [phone] Encounter Details Date Type Department Care Team (Late st Contact Info) Description 10/09/2025 Results Follow-Up [facility] Transplant Center [address] [place] [phone] Meaghan Le, RN [facility] LIVER [id number] [address] [place] [address] Social History Tobacco Use Types Packs/Day Years [...] often do you attend [facility] or buddhist services? More than 4 times per year 02/19/2025 Do you belong to any clubs o r organizations such as presybeterian groups, unions, [employer] or athletic groups, or school groups? Yes [...] any clubs o r organizations such as presybeterian groups, unions, fraternal or athletic groups, or [...] all 06/15/2025 [facility] - Occupational Stress Questionnaire Answer [...] drink first t luisa in the morning (EYE-FIELD TRAINER) to steady your nerves or to get rid of a hangover? 0 06/14/2025 CAGE Questionnaire Score 0 025 Utilities Answer Date Recorded In the past 12 months has th e [employer], gas, oil, or water [employer] threatened to shut off services in your [...] [facility], [address] [place] [address] Suhail Brock MD [address] [place] [address] 01/24/2026 4:40 PM EDT Office Visit [facility] [address] [facility] [facility] [address] [facility], [address] [place] [address] Moustapha Katz MD [address] [facility] [address] [place] [address] documented as of this encounter [...] documented as of this encounter Care Teams Map And Chart Mounter Relationship Specialty [place] [address] PCP - General 03/14/25 Ruma Hernández APRN [address] [facility] [address] [place], [place] [id number] Referring Physician Gastroenterology 07/30/23 documented as of this encounter
--- OUTSIDE RECORDS SUMMARY | 2025-11-12 07:17 | XMS_ITS | Encounter Summary ---
Author Organization [facility] Address [address] [place] [id number] Care Team Providers Care Telehealth Director Name Role Phone System, Provider Not [...] release of HIV test results or diagnoses. [id number] Reason for Visit * Reason Comments Transitions Of Care Encounter Details Date Type Department Care Team (Late st Contact Info) Description 10/18/2025 Pharmacy Services [facility] at [address] [phone] Dory Hannah RPh Social History Tobacco Use [...] * Dory Hannah, [facility] - 10/18/2025 8:35 AM EST Transitions of Care Patient's prescriptions were sent to [facility] for a Transplant benefits review. David Pop received a Liver Transplant on 10/17/25 at [facility]. The patient's discharge medications were sent to [facility] for anticipated dischargeof 10/22/25. The patient has a [employer] commercial insurance plan to cover prescriptions. Currently, [...] in any of the prescriptions sent to [facility]. Medication Discharge Service will deliver all medications that they are able to fill to patient's bedside prior to discharge from hospital. Transplant team will provide education to the patient priorto discharge from the hospital. The patient has been referred to the [facility] Transplant Team. The patient should visit [facility] for assistance if problems arise with the prescriptions. If questions arise regarding discharge medications, please call [phone]. Rosario Hannah PharmD Transitions of Care Pharmacist [phone] documented in this encounter Plan of Treatment Not on file documented as of this encounter Visit Diagnoses Not on filedocumented in this encounter Additional Health Concerns Assessment Noted Time PHQ-9 Depression Total Score: 8 09/10/20 11:09 AM EDT documented as of this encounter Care Teams Telehealth Director Relationship Specialty Start Date End Date System, Provider Not In PCP - General 09/10/25 10/24/25 documented as of this encounter
--- OUTSIDE RECORDS SUMMARY | 2025-11-12 07:17 | XMS_ITS | Encounter Summary ---
Author Organization [facility] Address [address] [place] [id number] Care Team Providers Care Assistant Branch Manager Name Role Phone System, Provider Not [...] release of HIV test results or diagnoses. [id number] Health Encounter Details Date Type Department Care Team (Late st Contact Info) Description 10/18/2025 Chart Note [facility] Liver Transplant at [address] [phone] Rosangela Lewis, RN I have verified that the donor serologies entered in [employer] match the donor Social History Tobacco Use [...] verified that the donor serologies entered in [employer] match the donor serologies that are listed in [facility]. documented in this encounter Plan of Treatment Not on file documented as of this encounter Visit Diagnoses Not on filedocumented in this encounter Additional Health Concerns Assessment Noted Time PHQ-9 Depression Total Score: 8 09/10/20 11:09 AM EDT documented as of this encounter Care Teams Assistant Branch Manager Relationship Specialty Start Date End Date System, Provider Not In PCP - General 09/10/25 10/24/25 documented as of this encounter
--- OUTSIDE RECORDS SUMMARY | 2025-11-12 07:17 | XMS_ITS | Clinical Summary ---
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 Chris Medel MD [...] therelease of HIV test results or diagnoses. [id number] [facility] Allergies Active Allergy Reactions Criticality Noted Date [...] 3:31 PM EST 10/18/20 25 Active senna-docusate (SENNOSIDES-DOC USATE SODIUM) 8.6-50 mg per tablet Take 1 tablet by mouth at bedtime as needed for constipation. 30 tablet 5 3:31 PM EST 10/18/20 25 Active mycophenolate (CELLCEPT) 250 mg capsule Take 2 capsules (500 mg total) by mouth 2 times a day. 120 capsule 5 5 3:31 PM EST 10/18/20 25 Active calcium-vitamin D 500 mg-5 mcg (200 unit) [...] four times a day. 100 strip 11 3:31 PM EST 10/18/20 25 Active lancets Misc Use to test blood sugar four times a day. 100 each 11 5 3:31 PM EST 10/18/20 25 Active pantoprazole (PROTONIX) 40 MG tablet Take 1 tablet (40 mg total) by mouth every morning before breakfast. 30 tablet 2 3:31 PM EST 10/18/20 25 Active insulin lispro 100 unit/mL InPn [...] times a day as needed. 10/30/20 Active atovaquone (MEPRON) 750 mg/5 mL suspension Take 10 mLs (1,500 mg total) by mouth daily. 300 mL 2 5 4:34 PM EST 11/05/20 Active tacrolimus (PROGRAF) 1 MG capsule Take 6 capsules (6 mg total) by mouth 2 times a day. 11/08/20 Active traMADoL (ULTRAM) 50 mg tabletIndicatio ns:Liver transplanted (CMS-HCC) Take 1 tablet (50 mg total) by mouth every 6 hours as needed for up to 7 days. 20 tablet 5 4:34 PM EST 11/08/20 25 026 Active predniSONE (DELTASONE) 20 MG tablet Take 3 tablets (60 mg total) by mouth daily. 30 tablet 5 4:34 PM EST 11/09/20 Active XIFAXAN 550 mg Tab tablet Take 1 tablet (550 mg total) by mouth 2 times a day. 01/16/20 025 Discontinued(S top Taking at Discharge) ergocalciferol (ERGOCALCIFEROL ) 1,250 mcg (50,000 unit) capsule Take 1 capsule (50,000 Units total) by mouth once a week. 03/08/20 025 Discontinued(S top Taking at Discharge) furosemide (LASIX) 20 MG tablet Take 2 tablets (40 mg total) by mouth daily. 03/13/20 025 Discontinued omeprazole (PRILOSEC) 20 MG capsule Take 2 capsules (40 mg total) by mouth daily. 03/14/20 025 Discontinued(S top Taking at Discharge) spironolactone (ALDACTONE) 50 MG tablet Take 3 tablets (150 mg total) by mouth daily. 03/13/20 025 Discontinued(S top Taking at Discharge) calcitRIOL (ROCALTROL) 0.25 MCG capsule Take 1 capsule (0.25 mcg total) by mouth. Take 1 capsule by mouth 5 times a week. Once daily Wednesday through Wednesday08/08/20 025 Discontinued(S top Taking at Discharge) tacrolimus (PROGRAF) 1 MG capsule Take 10 capsules (10 mg total) by mouth 2 times a day. 600 capsule 5 10/18/20 25 025 Discontinued sulfamethoxazol e-trimethoprim (BACTRIM) 400-80 mg per tablet Take 1 tablet by mouth daily. 30 tablet 2 5 3:31 PM EST 10/18/20 25 025 Discontinued(T herapy Completed / No Longer Needed) predniSONE (DELTASONE) 5 MG tablet Take 4 tablets (20 mg total) by mouth daily. 120 tablet 2 10/18/20 25 025 Discontinued methocarbamoL (ROBAXIN) 500 MG tablet Take [...] 12 units 15 mL 2 10/18/20 25 025 Discontinued apixaban (ELIQUIS) 2.5 mg Tab Take 1 tablet (2.5 mg total) by mouth 2 times a day. 60 tablet 10/18/20 25 025 Discontinued(S top Taking at Discharge) predniSONE (DELTASONE) 5 MG tablet Take 6 tablets by mouth in the morning on 10/23, then take 5 tablets by mouth on 10/24, and then starting on 10/25, take 4 tablets daily 123 tablet 2 5 3:31 PM EST 10/22/20 25 025 Discontinued(S top Taking at Discharge) oxyCODONE (ROXICODONE) 5 MG immediate release tabletIndicatio ns:S/P liver transplant (CMS-HCC) Take 1 tablet (5 mg total) by mouth every 8 hours as needed for up to 3 days. 9 tablet 5 3:31 PM EST 10/22/20 25 025 potassium phosphate, monobasic, (K-PHOS) 500 mg tablet dissolve 1 tablet (500 mg total) in 6 to 8 ounces of water and drink by mouth 2 times a day. 60 tablet 10/22/20 25 025 Discontinued(S top Taking at Discharge) potassium chloride (KLOR-CON) 10 MEQ CR tablet Take 1 tablet (10 mEq total) by mouth daily. 7 tablet 5 3:31 PM EST 10/22/20 25 025 Discontinued sod phos di, mono-K phos mono (PHOSPHORUS) 250 mg Tab tablet Take 250 mg by mouth 2 times a day. 14 tablet 5 3:31 PM EST 10/22/20 25 025 Discontinued furosemide (LASIX) 40 MG tablet Take 1 tablet (40 mg total) by mouth daily. 7 tablet 5 3:31 PM EST 10/22/20 25 025 Discontinued tacrolimus (PROGRAF) 1 MG capsule Take 5 capsules (5 mg total) by mouth 2 times a day. 600 capsule 5 5 3:31 PM EST 10/22/20 25 025 [...] Encounters Date Type Department Care Team Description 11/09/2025 Orders Only [facility] Liver Transplant at [facility] [address] [facility] [address] [place] [address] Giovanna June, RN Liver replaced by transplant (CMS-HCC) (Primary Dx); Acute rejection of liver transplant (CMS-HCC) 11/08/2025 Results Follow-Up [address] [place] [phone] Nathalie Cohen MD CBC, CBC, CBC 11/06/2025 Orders Only [facility] [address] [place], [place] [id number] Lore Nevarez, ERICA Presence of pancreatic duct stent (Primary Dx) 11/05/2025 10:35 AM EST - 11/05/2025 11:02 AM EST Surgery [facility] ENDOSCOPY [address] [place] [address] Nigel Reaves MD LIVER BIOPSY 11/04/2025 9:45 AM EST Anesthesia Event [facility] ENDOSCOPY [address] [place] [address] Balwinder Cummings MD Trester, Joshua Timothy, MD 11/04/2025 9:00 AM EST - 11/04/2025 10:15 AM EST Surgery [facility] ENDOSCOPY [address] [place] [phone] Matheus Bonilla MD ERCP W Stent Placement 11/03/2025 Chart Note [facility] at [place] [address] [facility] [address] [place] [address] Rosangela Lewis, SILVIO Received a call from the moulder operator regarding critical hemoglobin. Pt is 11/02/2025 5:22 PM EST - 11/08/2025 5:43 PM EST Hospital Encounter [address] [place] [address] Vani Drew MD Immunosuppression (CMS-HCC) (Primary Dx); Hepatic encephalopathy (CMS-HCC); Pre-transplant evaluation for chronic liver disease; Encounter for pre-transplant evaluation for liver transplant; Hyperbilirubinemia; Anemia, unspecified type [D64.9]; Iron overload [E83.19]; Positive direct antiglobulin test (FRANSICO) [R76.89]; Liver transplanted (CMS-HCC) Discharge Disposition: Home or Self Care WITHOUT Home Care Services 11/02/2025 Telephone [facility] [address] [place] [address] Unknown, Attending Provider After Hours Call 11/02/2025 Travel 11/02/2025 Telephone [facility] Liver Transplant at [address] [phone] Ruma Benjamin, SILVIO Results; Critical Lab Results 11/02/2025 Chart Note [facility] Liver Transplant at [address] [phone] Pita Pike MA 11/02/2025 Telephone [facility] Liver Transplant at [address] [phone] Pita Pike MA 11/02/2025 Telephone [facility] Liver Transplant at [address] [phone] Nina Hawkins MA 11/01/2025 Orders Only [facility] Liver Transplant at [place] [address] [place] [address] Ruma Benjamin, SILVIO S/P liver transplant (CMS-HCC) (Primary Dx); Dark brown urine 10/31/2025 Telephone [facility] Liver Transplant at [place] [address] [place] [address] Ruma Benjamin, RN Results 10/30/2025 9:00 AM EST Office Visit [facility] Liver Transplant at [address] [place] [phone] Lane Troy MD Myer, Adam, MD Encounter for therapeutic drug level monitoring (Primary Dx); Liver [facility]); Immunosuppression (CMS-HCC); Immunosuppressive management encounter following liver transplant ([facility]) 10/30/2025 Social Work [facility] Liver Transplant at [address] [place] [phone] Michelle Ho, PHP [employer] DEVELOPER, REUSE TECHNICIAN 10/30/2025 Chart Note [facility] Liver Transplant at [address] [phone] Pita Pike MA FK pending [facility] 10/30/2025 Nutrition [facility] Kidney Transplant at [address] [phone] Oskar Arango, FLEX 10/25/2025 Telephone [facility] Liver Transplant at [address] [place] [phone] Giovanna June, RN 10/25/2025 Telephone [facility] Liver Transplant at [address] [place] [phone] Pita Pike MA 10/25/2025 Orders Only [facility] Liver Transplant at [address] [place] [phone] Felice Nugent III, MD 10/24/2025 Chart Note [facility] Liver Transplant at [address] [place] [phone] Pita Pike MA FK pend [facility] 10/24/2025 Telephone [facility] Liver Transplant at [address] [place] [address] Linn Tiwari MA 10/23/2025 Orders Only [facility] Liver Transplant at [address] [place] [phone] Giovanna June, RN Liver replaced by transplant ([facility]) (Primary Dx) 10/22/2025 Chart Note [facility] Liver Transplant at [address] [place] [phone] Cori Womack, JudyD Liver Transplant Pharmacy Discharge Note 10/22/2025 Orders Only [facility] Liver Transplant at [address] [place] [address] Ruma Benjamin, SILVIO S/P liver transplant ([facility]) (Primary Dx); Immunosuppression ([facility]) 10/22/2025 Orders Only [facility] Liver Transplant at [address] [place] [address] Felice Nugent III, MD Liver replaced by transplant ([facility]) (Primary Dx); Immunosuppressive management encounter following liver transplant ([facility]) 10/19/2025 Education Chart Note [facility] Liver Transplant at [address] [place] [address] Giovanna June, RN 10/18/2025 Chart Note [facility]ney Transplant at [address] [place] [address] Ailin Wells Patient Called In 10/18/2025 Pharmacy Services [facility] at [address] [place] [phone] Dory Hannah RPh 10/18/2025 Chart Note [facility] Liver Transplant at [address] [place] [phone] Giovanna June, RN I introduced myself as inpatient liver senior clinical data coordinator, explained 10/18/2025 Chart Note [facility] Liver Transplant at [address] [phone] Rosangela Lewis, RN I have verified that the donor serologies entered in Epic match the donor 10/17/2025 1:37 PM EST Anesthesia Event [facility] [address] [place] [phone] Oskar Torres MD Edwards, Anna, MD 10/17/2025 12:00 PM EST - 10/17/2025 8:[address] [facility] [address] [place] [phone] Vani Drew MD TRANSPLANT LIVER 10/17/2025 8:52 AM EST - 10/22/2025 4:06 PM EST Hospital Encounter [facility] [address] [place] [phone] Vani Drew MD S/P liver transplant ([facility]) (Primary Dx); End stage liver disease (CMS-HCC); Immunosuppression ([facility]) Discharge Disposition: Home WITH Home Health Care Services 10/17/2025 Chart Note [facility] Liver Transplant at [address] [phone] Maeve Hubbard, SILVIO Per Dr Drew, patient received whole liver with no extra vessels on 10/17/2025 Telephone [facility] Kidney Transplant at [address] [phone] Lore Burgos MA Appointment; Advice Only 10/17/2025 Travel 10/17/2025 Telephone [facility] Liver Transplant at [address] [phone] Joslyn Faulkner RN 10/03/2025 Telephone [facility] Liver Transplant at [address] [phone] Pb Sy, SILVIO 10/03/2025 Chart Note [facility] Transplant at [address] [phone] Ailin Wells Organ: Liver 10/03/2025 Telephone [facility] Liver Transplant at [address] [phone] Pb Sy, RN Appointment 09/25/2025 Telephone [facility] Liver Transplant at [address] [phone] Chapito Alcantar, SILVIO 09/25/2025 Chart Note [facility] Liver Transplant at [address] [phone] Chapito Alcantar, SILVIO UNOS VERIFICATION CHECK FORM 09/25/2025 Chart Note [facility] Transplant at [address] [phone] Ailin Wells Authorization for listing 09/24/2025 1:00 PM EST Office Visit [facility] Liver Transplant at [address] [phone] Nigel Reaves MD Esophageal varices without bleeding, unspecified esophageal varices type (CMS-HCC) (Primary Dx); Alcoholic cirrhosis of liver with ascites (CMS-HCC); Hepatic encephalopathy (CMS-HCC); Pre-transplant evaluation for chronic liver disease; Ascites due to alcoholic cirrhosis (CMS-HCC) 09/24/2025 Orders Only [facility] Liver Transplant at [address] [phone] Chapito Alcantar, SILVIO Alcoholic cirrhosis of liver with ascites (CMS-HCC) (Primary Dx); Pre-transplant evaluation for chronic liver disease 09/24/2025 Chart Note [facility] Kidney Transplant at [address] [phone] Ailin Wells Called local office again to get status of listing auth request. Spoke to 09/21/2025 Refill [facility] at [facility] [address] [phone] Arturo Gibson RN 09/20/2025 Telephone [facility] Liver Transplant at [address] [phone] Cori Dover MA 09/20/2025 Chart Note [facility] Liver Transplant at [address] [phone] Chapito Alcantar, RN Spoke with patient's spouse and updated her on current bed situation. 09/19/2025 Telephone [facility] Liver Transplant at [address] [phone] Chapito Alcantar, SILVIO 09/18/2025 Pharmacy Services [facility] [address] [place] [address] Delaney Bahena RXT 09/17/2025 Refill [facility] at [facility] [address] [phone] Johnny Dubois, SILVIO 09/17/2025 Telephone [facility] at [facility] [address] [phone] Navi Sims MD 09/13/2025 Chart Note [facility] Liver Transplant at [address] [phone] Chapito Alcantar, RN Multi-disciplinary Hepatobiliary Case Conference Review: 09/11/2025 Telephone [facility] Liver Transplant at [address] [phone] Chapito Alcantar, SILVIO 09/11/2025 Chart Note [facility] Transplant at [address] [phone] Ailin Wells Faxed Clinical for Listing/Txp Auth 09/11/2025 Telephone [facility] Liver Transplant at [address] [phone] Chapito Alcantar, SILVIO 09/10/2025 4:35 PM EDT [facility] [address] [place] [phone] Buddy Zimmerman MD Alcoholic cirrhosis of liver with ascites (CMS-HCC); Pre-transplant evaluation for chronic liver disease 09/10/2025 2:00 PM EDT Office Visit [facility] Liver Transplant at [address] [phone] Unknown, Attending Provider Navi Sims MD Pre-transplant evaluation for chronic liver disease (Primary Dx); Encounter for pre-transplant evaluation for liver transplant 09/10/2025 1:30 PM EDT Office Visit [facility] Liver Transplant at [address] [phone] Lane Troy MD Alcoholic cirrhosis of liver with ascites (CMS-HCC) (Primary Dx); Pre-transplant evaluation for chronic liver disease 09/10/2025 1:00 PM EDT Office Visit [facility] Liver Transplant at [address] [phone] Buddy Zimmerman MD Pre-transplant evaluation for chronic liver disease (Primary Dx); Alcoholic cirrhosis of liver with ascites (CMS-HCC) 09/10/2025 12:00 PM EDT Office Visit [facility] Anesthesia Transplant at [address] [place] [address] Unknown, Attending Provider Stefan Gonzalez MD Pre-transplant evaluation for chronic liver disease (Primary Dx) 09/10/2025 10:03 AM EDT - 09/10/2025 11:59 PM EDT Hospital Encounter [facility] [address] [place] [address] Nigel Reaves MD Pre-transplant evaluation for chronic liver disease Discharge Disposition: Home or Self Care WITHOUT Home Care Services 09/10/2025 Social Work [facility] Liver Transplant at [place] [address] [place] [address] Michelle Ho, PHP [employer] DEVELOPER, REUSE TECHNICIAN 09/10/2025 Nutrition [facility] Transplant at [place] [address] [place] [address] Oskar Arango, RD 09/10/2025 Chart Note [facility] Liver Transplant at [place] [address] [place] [address] Chapito Alcantar, SILVIO Alcoholic cirrhosis of liver with ascites (CMS-HCC) (Primary Dx); Pre-transplant evaluation for chronic liver disease 09/08/2025 8:34 PM EDT - 09/08/2025 11:59 PM EDT Hospital Encounter [facility] [address] [place] [address] System, Provider Not In Discharge Disposition: Home or Self Care WITHOUT Home Care Services 09/08/2025 8:34 PM EDT - 09/08/2025 11:59 PM EDT Hospital Encounter [facility] [address] [place] [address] System, Provider Not In Discharge Disposition: Home or Self Care WITHOUT Home Care Services 09/08/2025 8:31 PM EDT - 09/08/2025 8:33 PM EDT Hospital Encounter [facility] [address] [place] [address] System, Provider Not In Discharge Disposition: Home or Self Care WITHOUT Home Care Services 09/08/2025 8:31 PM EDT - 09/08/2025 8:33 PM EDT Hospital Encounter [facility] [address] [place] [address] System, Provider Not In Discharge Disposition: Home or Self Care WITHOUT Home Care Services 09/05/2025 Telephone [facility] Liver Transplant at [address] [phone] Chapito Alcantar RN 09/05/2025 Telephone [facility] Liver Transplant at [address] [phone] Cori Dover MA 09/05/2025 Abstract [facility] Liver Transplant at [address] [phone] Chapito Alcantar, RN Alcoholic cirrhosis of liver with ascites (CMS-HCC) (Primary Dx); Ascites due to alcoholic cirrhosis (CMS-HCC); Hepatic encephalopathy (CMS-HCC); Esophageal varices without bleeding, unspecified esophageal varices type (CMS-HCC); Pre-transplant evaluation for chronic liver disease 08/13/2025 Telephone [facility] Liver Transplant at [address] [phone] Cori Dover MA 08/13/2025 Telephone [facility] Liver Transplant at [address] [address] Cori Dover MA 08/13/2025 Orders Only [facility] Liver Transplant at [facility] [address] [facility] [address] [place] [phone] Chapito Alcantar RN Pre-transplant evaluation for chronic liver disease (Primary Dx) 08/13/2025 Chart Note [facility] Kidney Transplant at [facility] [address] [facility] [address] [place] [phone] Ailin Wells Patient is financially cleared for [...] living in a residential (including now)? No 11/02/2025 Utilities Answer Date Recorded In the past 12 months has Compute, gas, oil, or water [employer] threatened to shut off services in your [...] Mass Index 27.41 11/05/2025 10:45 AM EST Plan of Treatment Health Maintenance [...] Required) Completed Medical Devices Implanted Type Area Auto Glass Installer Device Identifier Shelf Expiration Date Model / Serial / Lot Stent Matt 10fr 5cm Thnwl 2 Pgtl Crv Rx Temp Tpr Tip Advanix Pls Acpt .035in Gw - [id number] Implanted:Qty: 1 on 11/04/2025 by Matheus Bonilla MD at [facility] Stent [employer] 05/21/2027 [id number] / / [id number] Stent Pancreatic Zimmon Polyethylene Pigtail Curve L5 Cm Od5 Fr Radiopaque Spiral Sidehole Retention Flap Sterile Disposable Purple - [id number] Implanted:Qty: 1 on 11/04/2025 by Matheus Bonilla MD at [facility] Stent [facility] 05/08/2028 [id number] / / [id number] Liver Implanted:Qty: 1 on 10/17/2025 by Vani Drew MD at [facility] [id number] / [id number] / [id number] Procedures Procedure Name Priority Date/Time Associated Diagnosis Comments HOX - HLA ANTIBODY REPORT Routine 11/09/2025 10:38 AM EST POC GLU MONITORING DEVICE Routine 11/08/2025 12:34 PM EST POC GLU MONITORING DEVICE Routine 11/08/2025 7:19 AM EST HAPTOGLOBIN Routine 11/08/2025 6:15 AM EST LACTATE DEHYDROGENASE STAT 11/08/2025 6:15 AM EST TACROLIMUS LEVEL Timed 11/08/2025 6:15 AM EST PHOSPHORUS STAT 11/08/2025 6:15 AM EST MAGNESIUM STAT 11/08/2025 6:15 AM EST CBC STAT 11/08/2025 6:15 AM EST BASIC METABOLIC PANEL STAT 11/08/2025 6:15 AM EST HEPATIC FUNCTION PANEL STAT 11/08/2025 6:15 AM EST POC GLU MONITORING DEVICE Routine 11/07/2025 9:04 PM EST POC GLU MONITORING DEVICE Routine 11/07/2025 5:56 PM EST POC GLU MONITORING DEVICE Routine 11/07/2025 2:13 PM EST POC GLU MONITORING DEVICE Routine 11/07/2025 8:53 AM EST IGG Add-On 11/07/2025 6:40 AM EST HAPTOGLOBIN Routine 11/07/2025 6:40 AM EST LACTATE DEHYDROGENASE STAT 11/07/2025 6:40 AM EST TACROLIMUS LEVEL Timed 11/07/2025 6:40 AM EST PHOSPHORUS STAT 11/07/2025 6:40 AM EST MAGNESIUM STAT 11/07/2025 6:40 AM EST CBC STAT 11/07/2025 6:40 AM EST HEPATIC FUNCTION PANEL STAT 11/07/2025 6:40 AM EST BASIC METABOLIC PANEL STAT 11/07/2025 6:40 AM EST POC GLU MONITORING DEVICE Routine 11/06/2025 9:36 PM EST POC GLU MONITORING DEVICE Routine 11/06/2025 6:34 PM EST CBC STAT 11/06/2025 5:50 PM EST POC GLU MONITORING DEVICE Routine 11/06/2025 11:11 AM EST POC GLU MONITORING DEVICE Routine 11/06/2025 7:25 AM EST PREPARE RBC, LEUKOREDUCED STAT 11/06/2025 6:15 AM EST HAPTOGLOBIN Routine 11/06/2025 6:02 AM EST LACTATE DEHYDROGENASE STAT 11/06/2025 6:02 AM EST TACROLIMUS LEVEL Timed 11/06/2025 6:02 AM EST PHOSPHORUS STAT 11/06/2025 6:02 AM EST MAGNESIUM STAT 11/06/2025 6:02 AM EST CBC STAT 11/06/2025 6:02 AM EST BASIC METABOLIC PANEL STAT 11/06/2025 6:02 AM EST HEPATIC FUNCTION PANEL STAT 11/06/2025 6:02 AM EST POC GLU MONITORING DEVICE Routine 11/05/2025 9:56 PM EST FRANSICO ANTI-COMPLEMENT Routine 11/05/2025 8:22 PM EST FRANSICO ANTI-IGG Routine 11/05/2025 8:21 PM EST DIRECT ANTIGLOBULIN TEST Routine 11/05/2025 6:49 PM EST PARVOVIRUS B19 QUANT PCR Routine 11/05/2025 6:49 PM EST HEMOGLOBIN FREE, PLASMA Routine 11/05/2025 6:49 PM EST PARVOVIRUS B19 ANTIBODY, IGG AND IGM STAT 11/05/2025 6:49 PM EST CBC STAT 11/05/2025 6:49 PM EST RETICULOCYTE COUNT, AUTO Routine 11/05/2025 6:49 PM EST TRANSFUSE RED BLOOD CELLS STAT 11/05/2025 2:47 PM EST POC GLU MONITORING DEVICE Routine 11/05/2025 2:10 PM EST LIVER BIOPSY Routine 11/05/2025 11:35 AM EST LIVER BIOPSY [facility] [place] 11/05/2025 11:13 AM EST Hyperbilirubinemia PREPARE RBC, LEUKOREDUCED Routine 11/05/2025 6:15 AM EST DIFFERENTIAL Add-On 11/05/2025 6:10 AM EST SLIDE REQUEST (MAKE SLIDE AND HOLD) Add-On 11/05/2025 6:10 AM EST HAPTOGLOBIN Routine 11/05/2025 6:10 AM EST LACTATE DEHYDROGENASE STAT 11/05/2025 6:10 AM EST TACROLIMUS LEVEL Timed 11/05/2025 6:10 AM EST PHOSPHORUS STAT 11/05/2025 6:10 AM EST MAGNESIUM STAT 11/05/2025 6:10 AM EST CBC STAT 11/05/2025 6:10 AM EST HEPATIC FUNCTION PANEL STAT 11/05/2025 6:10 AM EST BASIC METABOLIC PANEL [...] MONITORING DEVICE Routine 11/04/2025 9:32 AM EST PREPARE RBC, LEUKOREDUCED Routine 11/04/2025 6:15 AM EST TACROLIMUS LEVEL Timed 11/04/2025 6:15 AM EST POC GLU MONITORING DEVICE Routine 11/04/2025 5:18 AM EST PHOSPHORUS STAT 11/04/2025 3:39 AM EST MAGNESIUM STAT 11/04/2025 3:39 AM EST CBC STAT 11/04/2025 3:39 AM EST BASIC METABOLIC PANEL STAT 11/04/2025 3:39 AM EST HEPATIC FUNCTION PANEL STAT 11/04/2025 3:39 AM EST POC GLU MONITORING DEVICE Routine 11/03/2025 11:38 PM EST TRANSFUSE RED BLOOD CELLS Routine 11/03/2025 11:00 PM EST CBC Routine 11/03/2025 9:14 PM EST POC GLU MONITORING DEVICE Routine 11/03/2025 6:00 PM EST HAPTOGLOBIN Routine 11/03/2025 1:52 PM EST LACTATE DEHYDROGENASE STAT 11/03/2025 1:52 PM EST CBC Routine 11/03/2025 1:52 PM EST POC GLU MONITORING DEVICE Routine 11/03/2025 11:47 AM EST US ABDOMEN LIMITED STAT 11/03/2025 10:05 AM EST US DUPLEX [id number] COMPLETE STAT 11/03/2025 10:05 AM EST TACROLIMUS LEVEL Timed 11/03/2025 6:46 AM EST PHOSPHORUS STAT 11/03/2025 6:46 AM EST MAGNESIUM STAT 11/03/2025 6:46 AM EST CBC STAT 11/03/2025 6:46 AM EST BASIC METABOLIC PANEL STAT 11/03/2025 6:46 AM EST HEPATIC FUNCTION PANEL STAT 11/03/2025 6:46 AM EST TRANSFUSE RED BLOOD CELLS Routine 11/03/2025 6:37 AM EST POC GLU MONITORING DEVICE Routine 11/03/2025 5:45 AM EST CLOSTRIDIUM DIFFICILE DNA AMPLIFICATION Routine 11/03/2025 5:21 AM EST ENTERIC PATHOGEN PANEL Routine 11/03/2025 5:21 AM EST HISTOPLASMA/BLASTOMYC ES AG, EIA, U Routine 11/03/2025 3:20 AM EST UPPER RESPIRATORY VIRAL/BACTERIAL PANEL-SENIOR ENVIRONMENTAL ENGINEER ONLY Routine 11/03/2025 2:51 AM EST STREP PNEUMO-LEGIONELLA URINE ANTIGEN Routine 11/03/2025 2:51 AM EST URINALYSIS W/RFL TO MICROSCOPIC Routine 11/03/2025 2:51 AM EST TRANSFUSE RED BLOOD CELLS Routine 11/03/2025 2:[address] ABDOMEN AND PELVIS WITH IV CONTRAST STAT 11/03/2025 1:21 AM EST POC GLU MONITORING DEVICE Routine 11/03/2025 12:26 AM EST ANTIBODY SCREEN Routine 11/02/2025 11:44 PM EST ABO/RH Routine 11/02/2025 11:44 PM EST HISTOPLASMA/BLASTOMYC ES AG, EIA, S Routine 11/02/2025 9:13 PM EST BLOOD CULTURE-PERIPHERAL STAT 11/02/2025 9:13 PM EST HEPATIC FUNCTION PANEL STAT 11/02/2025 9:08 PM EST MAGNESIUM STAT 11/02/2025 9:08 PM EST RENAL FUNCTION PANEL W/EGFR STAT 11/02/2025 9:08 PM EST CBC STAT 11/02/2025 9:08 PM EST FUNGITELL XDOT-W-EPUBZX Routine 11/02/2025 9:08 PM EST JOSE MIMS VIRUS DNA, QNT PCR, BLOOD Routine 11/02/2025 9:08 PM EST CRYPTOCOCCUS ANTIGEN, SERUM Routine 11/02/2025 9:08 PM EST CYTOMEGALOVIRUS DNA, QUANT, RT PCR Routine 11/02/2025 9:08 PM EST ASPERGILLUS AG Routine 11/02/2025 9:08 PM EST ADENOVIRUS, QUANTITATIVE PCR Routine 11/02/2025 9:08 PM EST FUNGUS CULTURE, BLOOD Routine 11/02/2025 9:08 PM EST AFB CULTURE, BLOOD Routine 11/02/2025 9:08 PM EST BLOOD CULTURE-PERIPHERAL STAT 11/02/2025 9:08 PM EST POC GLU MONITORING DEVICE Routine 11/02/2025 8:51 PM EST RENAL FUNCTION PANEL W/O EGFR Routine 11/01/2025 7:05 AM EST CBC AND DIFFERENTIAL Routine 11/01/2025 7:05 AM EST HEPATIC FUNCTION PANEL Routine 11/01/2025 7:05 AM EST TACROLIMUS LEVEL Routine 10/30/2025 8:07 AM EST S/P liver transplant (CMS-HCC) Immunosuppression (CMS-HCC) DIFFERENTIAL Routine 10/30/2025 8:07 AM EST S/P liver transplant (CMS-HCC) Immunosuppression (CMS-HCC) CBC Routine 10/30/2025 8:07 AM EST S/P liver transplant (CMS-HCC) Immunosuppression (CMS-HCC) RENAL FUNCTION PANEL W/EGFR Routine 10/30/2025 8:07 AM EST S/P liver transplant (CMS-HCC) Immunosuppression (CMS-HCC) HEPATIC FUNCTION PANEL Routine 10/30/2025 8:07 AM EST S/P liver transplant (CMS-HCC) Immunosuppression (CMS-HCC) RENAL FUNCTION PANEL W/O EGFR Routine 10/29/2025 7:49 AM EST CBC AND DIFFERENTIAL Routine 10/29/2025 7:49 AM EST HEPATIC FUNCTION PANEL Routine 10/29/2025 7:49 AM EST HOX - HLA ANTIBODY-DETAILED REPORT Routine 10/25/2025 11:31 AM EST TACROLIMUS LEVEL Routine 10/24/2025 7:23 AM EST RENAL FUNCTION PANEL W/O EGFR Routine 10/24/2025 7:23 AM EST HEPATIC FUNCTION PANEL Routine 10/24/2025 7:23 AM EST CBC AND DIFFERENTIAL Routine 10/24/2025 7:23 AM EST CBC AND DIFFERENTIAL Routine 10/24/2025 7:23 AM EST US DUPLEX [id number] COMPLETE STAT 10/22/2025 10:24 AM EST US ABDOMEN LIMITED STAT 10/22/2025 10:24 AM EST POC GLU MONITORING DEVICE Routine 10/22/2025 10:23 AM EST TACROLIMUS LEVEL Timed 10/22/2025 9:48 AM EST PHOSPHORUS STAT 10/22/2025 5:28 AM EST MAGNESIUM STAT 10/22/2025 5:28 AM EST CBC STAT 10/22/2025 5:28 AM EST HEPATIC FUNCTION PANEL STAT 10/22/2025 5:28 AM EST BASIC METABOLIC PANEL STAT 10/22/2025 5:28 AM EST POC GLU MONITORING DEVICE Routine 10/21/2025 4:31 PM EST POC GLU MONITORING DEVICE Routine 10/21/2025 12:27 PM EST TACROLIMUS LEVEL Timed 10/21/2025 8:30 AM EST POC GLU MONITORING DEVICE Routine 10/21/2025 8:18 AM EST HEPATIC FUNCTION PANEL STAT 10/21/2025 6:35 AM EST MAGNESIUM STAT 10/21/2025 6:35 AM EST RENAL FUNCTION PANEL W/EGFR STAT 10/21/2025 6:35 AM EST CBC STAT 10/21/2025 6:35 AM EST POC GLU MONITORING DEVICE Routine 10/20/2025 5:17 PM EST POC GLU MONITORING DEVICE Routine 10/20/2025 2:24 PM EST TACROLIMUS LEVEL Timed 10/20/2025 10:31 AM EST POC GLU MONITORING DEVICE Routine 10/20/2025 9:24 AM EST MAGNESIUM Routine 10/20/2025 5:31 AM EST HEPATIC FUNCTION PANEL Routine 10/20/2025 5:31 AM EST RENAL FUNCTION PANEL W/EGFR Routine 10/20/2025 5:31 AM EST CBC Routine 10/20/2025 5:31 AM EST POC GLU MONITORING DEVICE Routine 10/20/2025 5:30 AM EST PROTIME-INR Routine 10/19/2025 11:03 PM EST MAGNESIUM Routine 10/19/2025 11:03 PM EST HEPATIC FUNCTION PANEL Routine 10/19/2025 11:03 PM EST RENAL FUNCTION PANEL W/EGFR [...] 8:29 AM EST HEPATIC FUNCTION PANEL Routine 10/19/2025 8:29 AM EST RENAL FUNCTION PANEL W/EGFR [...] 10:20 PM EST HEPATIC FUNCTION PANEL Routine 10/18/2025 10:20 PM EST RENAL FUNCTION PANEL W/EGFR Routine 10/18/2025 10:20 PM EST PROTIME-INR Routine 10/18/2025 10:20 PM EST CBC Routine 10/18/2025 10:20 PM EST POC GLU MONITORING DEVICE Routine 10/18/2025 10:07 PM EST POC GLU MONITORING DEVICE Routine 10/18/2025 8:14 PM EST LACTIC ACID Routine 10/18/2025 5:47 PM EST MAGNESIUM Routine 10/18/2025 5:47 PM EST HEPATIC FUNCTION PANEL Routine 10/18/2025 5:47 PM EST RENAL FUNCTION [...] 11:21 AM EST HEPATIC FUNCTION PANEL Routine 10/18/2025 11:21 AM EST RENAL FUNCTION PANEL W/EGFR Routine 10/18/2025 11:21 AM EST PROTIME-INR Routine 10/18/2025 11:21 AM EST CBC Routine 10/18/2025 11:21 AM EST POC GLU MONITORING DEVICE Routine 10/18/2025 11:04 AM EST POC GLU MONITORING DEVICE Routine 10/18/2025 10:29 AM EST US DUPLEX [id number] COMPLETE STAT 10/18/2025 9:35 AM EST US ABDOMEN LIMITED STAT 10/18/2025 9:35 AM EST POC GLU MONITORING DEVICE Routine 10/18/2025 9:11 AM EST POC GLU MONITORING DEVICE Routine 10/18/2025 7:56 AM EST POC GLU MONITORING DEVICE Routine 10/18/2025 6:59 AM EST XR PORTABLE CHEST Routine 10/18/2025 6:37 AM EST PREPARE PLATELETS, LEUKOREDUCED Routine 10/18/2025 [...] AM EST BLOOD GAS, ARTERIAL Routine 10/18/2025 5:19 AM EST LACTIC ACID Routine 10/18/2025 5:02 AM EST MAGNESIUM Routine 10/18/2025 5:02 AM EST HEPATIC FUNCTION PANEL Routine 10/18/2025 5:02 AM EST RENAL FUNCTION [...] PM EST XR PORTABLE CHEST STAT 10/17/2025 11:28 PM EST CALCIUM FREE, SERUM Routine 10/17/2025 10:50 PM EST TEG-STANDARD GLOBAL HEMOSTASIS (RAPID TEG WITH HEPARIN EFFECT, CONTAINS A BASELINE) STAT 10/17/2025 10:50 PM EST LACTIC ACID STAT 10/17/2025 10:50 PM EST FIBRINOGEN STAT 10/17/2025 10:50 PM EST PROTIME-INR STAT 10/17/2025 10:50 PM EST BLOOD GAS, ARTERIAL STAT 10/17/2025 10:50 PM EST MAGNESIUM STAT 10/17/2025 10:50 PM EST HEPATIC FUNCTION PANEL STAT 10/17/2025 10:50 PM EST RENAL FUNCTION [...] PM EST POCT CALCIUM, TOTAL Routine 10/17/2025 9:25 PM EST POC POTASSIUM [...] 9:15 PM EST TRANSFUSE PLATELETS Routine 10/17/2025 9:01 PM EST TRANSFUSE CRYOPRECIPITATE Routine 10/17/2025 8:49 [...] PM EST POCT CALCIUM, TOTAL Routine 10/17/2025 8:22 PM EST POC POTASSIUM [...] PM EST POCT CALCIUM, TOTAL Routine 10/17/2025 7:26 PM EST POC POTASSIUM [...] 7:25 PM EST TRANSFUSE PLATELETS Routine 10/17/2025 7:03 PM EST TEG-BYPASS/ECMO/LIVER HN (FACTOR FUNCTION, PLATELET/FIBRIN [...] PM EST POCT CALCIUM, TOTAL Routine 10/17/2025 6:23 PM EST POC POTASSIUM [...] PM EST POCT CALCIUM, TOTAL Routine 10/17/2025 5:42 PM EST POC POTASSIUM [...] PM EST POCT CALCIUM, TOTAL Routine 10/17/2025 5:00 PM EST POC POTASSIUM [...] 4:13 PM EST TRANSFUSE PLATELETS Routine 10/17/2025 4:06 PM EST POC SAMPLE TYPE Routine 10/17/2025 3:59 PM EST POC ANION GAP Routine 10/17/2025 3:59 PM EST POC CHLORIDE Routine 10/17/2025 3:59 PM EST POCT HEMOGLOBIN Routine 10/17/2025 3:59 PM EST POCT HEMATOCRIT Routine 10/17/2025 3:59 PM EST POC LACTATE Routine 10/17/2025 3:59 PM EST POCT GLUCOSE Routine 10/17/2025 3:59 PM EST POCT CALCIUM, TOTAL Routine 10/17/2025 3:59 PM EST POC POTASSIUM [...] PM EST POCT CALCIUM, TOTAL Routine 10/17/2025 2:54 PM EST POC POTASSIUM [...] 2:50 PM EST ANAEROBIC CULTURE Routine 10/17/2025 2:50 PM EST HC ANESTHESIA PULMONARY ARTERY CATHETER [...] EST MAGNESIUM STAT 10/17/2025 10:18 AM EST JOSE-MIMS VIRUS VCA IGG AB Routine 10/17/2025 10:18 AM EST CMV IGG ANTIBODY Routine 10/17/2025 10:18 AM EST HIV 1+2 [...] 10:18 AM EST HEPATIC FUNCTION PANEL Routine 10/17/2025 10:18 AM EST RENAL FUNCTION PANEL W/EGFR STAT 10/17/2025 10:18 AM EST HEMOGLOBIN A1C Routine 10/17/2025 10:18 AM EST VENOUS BLOOD GAS, LINE/SYRINGE STAT 10/17/2025 10:18 AM EST PROTIME-INR Routine 10/17/2025 10:18 AM EST DIFFERENTIAL Routine 10/17/2025 10:18 AM EST CBC Routine 10/17/2025 10:18 AM EST TOXOPLASMA GONDII ANTIBODY, IGG Routine 10/17/2025 10:18 AM EST XR PORTABLE CHEST STAT 10/17/2025 10:11 AM EST PROTIME-INR Routine 09/24/2025 2:11 PM [...] liver disease QUANTIFERON TB2 AG Routine 09/10/2025 5:03 PM EDT Pre-transplant evaluation for chronic liver disease QUANTIFERON TB1 AG Routine 09/10/2025 5:03 PM EDT Pre-transplant evaluation for chronic liver disease QUANTIFERON NIL Routine 09/10/2025 5:03 PM EDT Pre-transplant evaluation for chronic liver disease QUANTIFERON MITOGEN Routine 09/10/2025 5:03 PM EDT Pre-transplant evaluation [...] liver disease ECG 12-LEAD (MUSE) Routine 09/10/2025 12:14 PM EDT Alcoholic cirrhosis of liver with [...] 3 Months Results * Hox - HLA Antibody Report (11/09/2025 10:38 AM EST) 11/09/2025 10:3 8 AM EST us Felice Nugent III, MD LAB BLOOD ORDERABLE S Final Result [facility] [address] [place] [address] * (ABNORMAL) POC Glucose Monitoring Device (11/08/2025 12:34 PM EST) Only the most recent of62 resultswithin the time period is included. POC Glucose Monitoring Device 304(H) 70 - 100 mg/dL 11/08/2025 12:35 PM EST [facility] Blood 11/08/2025 12:3 4 PM EST 11/08/2025 12:35 PM EST Vani Drew MD POINT OF CARE TEST ORDERABLE S Final Result Performing Organization Address City/[facility]/ZIP Co de Phone Number [facility] [address] * (ABNORMAL) Hepatic Function Panel (11/08/2025 6:15 AM EST) Only the most recent of25 resultswithin the time period is included. Total Bilirubin 5.0(H) 0.0 - 1.5 mg/dL 11/08/2025 6:56 AM EST [facility] Bilirubin, Direct 2.51(H) 0.00 - 0.40 mg/dL 11/08/2025 6:56 AM EST [facility] AST 26 13 - 39 U/L 11/08/2025 6:56 AM EST [facility] ALT 54(H) 7 - 52 U/L 11/08/2025 6:56 AM EST [facility] Alkaline Phosphatase 364(H) 36 - 125 U/L 11/08/2025 6:56 AM EST [facility] Total Protein 5.6(L) 6.4 - 8.9 g/dL 11/08/2025 6:56 AM EST [facility] Albumin 3.0(L) 3.5 - 5.7 g/dL 11/08/2025 6:56 AM EST [facility] Bilirubin, Indirect 2.49(H) 0.00 - 1.10 mg/dL 11/08/2025 6:56 AM EST [facility] Plasma 11/08/2025 6:15 AM EST 11/08/2025 6:20 AM EST Aspen Parr MD LAB BLOOD ORDERABLES Final Resul t Performing Organization Address [facility] Co de Phone Number [facility] [address] * Tacrolimus level (11/08/2025 6:15 AM EST) Only the most recent of12 resultswithin the time period is included. Tacrolimus (LC-MS) 10.1 3.0 - 15.0 ng/mL 11/08/2025 11:07 AM EST [facility] Comment:Performed via liquid chromatography tandem mass spectrometry. Detection limit: 1 ng/mL. Individual target concentrations may vary due to target organ and time after transplant. This test has been developed and its performance characteristics determined by [facility] which is certified under the [...] t Performing Organization Address [facility] Co de Phone Number [facility] [address] [facility]. [address] * (ABNORMAL) CBC (11/08/2025 6:15 AM EST) Only the most recent of27 resultswithin the time period is included. WBC 10.0 3.8 - 10.8 10E3/uL 11/08/2025 6:27 AM EST [facility] RBC 2.48(L) 4.20 - 5.80 10E6/uL 11/08/2025 6:27 AM EST [facility] Hemoglobin 8.5(L) 13.2 - 17.1 g/dL 11/08/2025 6:27 AM EST [facility] Hematocrit 24.1(L) 38.5 - 50.0 % 11/08/2025 6:27 AM EST [facility] MCV 97.2 80.0 - 100.0 fL 11/08/2025 6:27 AM EST [facility] MCH 34.4(H) 27.0 - 33.0 pg 11/08/2025 6:27 AM EST [facility] MCHC 35.4 32.0 - 36.0 g/dL 11/08/2025 6:27 AM EST [facility] RDW 24.0(H) 11.0 - 15.0 % 11/08/2025 6:27 AM EST [facility] Platelets 153 140 - 400 10E3/uL 11/08/2025 6:27 AM EST [facility] MPV 8.0 7.5 - 11.5 fL 11/08/2025 6:27 AM EST [facility] Whole Blood 11/08/2025 6:15 AM EST 11/08/2025 6:21 AM EST Aspen Parr MD LAB BLOOD ORDERABLES Final Resul t Performing Organization Address City/[facility]/ZIP Co de Phone Number [facility] [address] * Phosphorus (11/08/2025 6:15 AM EST) Only the most recent of7 resultswithin the time period is included. Phosphorus 3.5 2.1 - 4.7 mg/dL 11/08/2025 6:56 AM EST [facility] Plasma 11/08/2025 6:15 AM EST 11/08/2025 6:20 AM EST Aspen Parr MD LAB BLOOD ORDERABLES Final Resul t [facility] [address] * Magnesium (11/08/2025 6:15 AM EST) Only the most recent of18 resultswithin the time period is included. Magnesium 1.6 1.5 - 2.5 mg/dL 11/08/2025 6:56 AM EST [facility] Plasma 11/08/2025 6:15 AM EST 11/08/2025 6:20 AM EST Aspen Parr MD LAB BLOOD ORDERABLES Final Resul t [facility] [address] [place] [address]. [address] * (ABNORMAL) Lactate Dehydrogenase (11/08/2025 6:15 AM EST) Only the most recent of5 resultswithin the time period is included. LD 344(H) 110 - 270 U/L 11/08/2025 6:56 AM EST [facility] Plasma 11/08/2025 6:15 AM EST 11/08/2025 6:20 AM EST Javier Jimenez MD LAB BLOOD ORDERABLES Fi nal Result Performing Organization Address [facility] Co de Phone Number [facility] [address] [place] [address]. [address] * (ABNORMAL) Haptoglobin (11/08/2025 6:15 AM EST) Only the most recent of5 resultswithin the time period is included. Pathologist [facility] Haptoglobin <30(L) 44 - 215 mg/dL 11/08/2025 8:18 AM EST [facility] Serum 11/08/2025 6:15 AM EST 11/08/2025 6:21 AM EST Javier Jimenez MD LAB BLOOD ORDERABLES Fi nal Result Performing Organization Address City/[facility] Co de Phone Number [facility] [address] [place] [address] * (ABNORMAL) Basic metabolic panel (11/08/2025 6:15 AM EST) Only the most recent of8 resultswithin the time period is included. Pathologist [facility] Sodium 136 133 - 146 mmol/L 11/08/2025 6:56 AM [facility] Potassium 3.9 3.5 - 5.3 mmol/L 11/08/2025 6:56 AM [facility] Chloride 105 98 - 110 mmol/L 11/08/2025 6:56 AM [facility] CO2 22 21 - 33 mmol/L 11/08/2025 6:56 AM [facility] Comment:High lactate dehydro genase concentrations in patient samples may cause falsely increased bicarbonate results. If markedly elevated LDH is observed or suspected, please assess results in conjunction with patient`s clinical presentation. In cases of discrepant results, consider evaluating CO2 in with a blood gas order. Anion Gap 9 3 - 16 mmol/L 11/08/2025 6:56 AM [facility] BUN 21 7 - 25 mg/dL 11/08/2025 6:56 AM [facility] Creatinine 1.03 0.60 - 1.30 mg/dL 11/08/2025 6:56 AM [facility] Glucose 143(H) 70 - 100 mg/dL 11/08/2025 6:56 AM [facility] Calcium 7.9(L) 8.6 - 10.3 mg/dL 11/08/2025 6:56 AM [facility] Osmolality, Calculated 287 278 - 305 mOsm/kg 11/08/2025 6:56 AM [facility] EGFR 81 11/08/2025 6:56 AM [facility] Comment:As of 2022, the estimated GFR [...] MD LAB BLOOD ORDERABLES Final Resul t [facility] [address] [facility]. [address] * IgG (11/07/2025 6:40 AM EST) IgG 993.0 600.0 - 1,560.0 mg/dL 11/09/2025 11:39 AM EST [facility] Comment:Please interpret the se findings in conjunction with clinical findings, protein electrophoresis, and immunotyping/immunofixation results. Serum 11/07/2025 6:40 AM EST 11/07/2025 3:26 PM EST Vani Drew MD LAB BLOOD ORDERABLES Final R esult [facility] [address] [facility]. [address] * Prepare RBC, leukoreduced, 1 Units (11/06/2025 6:15 AM EST) Only the most recent of5 resultswithin the time period is included. Product Code N0477N44 HCLL Unit Number [id number] HCLL Dispense Status Released from Crossmatch_RE HCLL Blood Expiration Date HCLL Coding System [id number] HCLL Product Code G4635Z23 HCLL Unit Number [id number] HCLL Dispense Status Presumed Transfused_PT HCLL Blood Expiration Date HCLL Coding System [id number] HCLL Product Code B9626N19 HCLL Unit Number [id number] HCLL Dispense Status Released from Crossmatch_RE HCLL Blood Expiration Date HCLL Coding System [id number] HCLL Blood Bank Product us Sherrie [employer] BLOOD BANK PRODUCT ORDERABLES Fi nal Result HCLL * FRANSICO Anti-Complement (11/05/2025 8:22 PM EST) FRANSICO Anti-complemen t 1 Negative 11/05/2025 8:22 PM EST [facility] Blood 11/05/2025 8:22 PM EST 11/05/2025 8:22 PM EST [employer] LAISHA BLOOD BANK TEST ORDERABLES Final Result [facility] [address] [facility]. [address] * FRANSICO Anti-IgG (11/05/2025 8:21 PM EST) FRANSICO IgG Negative 11/05/2025 8:21 PM EST [facility] Blood 11/05/2025 8:21 PM EST 11/05/2025 8:21 PM EST [employer] [facility]ISHA BLOOD BANK TEST ORDERABLES Final Result Performing Organization Address City/[facility] Co de Phone Number [facility] [address] [facility]. [address] * Parvovirus B19 Quant PCR (11/05/2025 6:49 PM EST) Parvovirus B19 Quant PCR Negative Negative copies/mL 11/09/2025 9:34 PM EST [facility] Comment: No Parvovirus B19 DNA detected. The quantitative range of this assay is 500 to 10 million copies/mL. This test was developed and its performance characteristics determined by [employer]. It has not been cleared or approved by the Food and Drug Administration. The FDA has determined that such clearance or approval is not necessary. [employer] Qn PCR UPTCAL [id number] 11/09/2025 9:34 PM EST [facility] Comment: Unable to calculate result since non-numeric result obtained for component test. Plasma Frozen 11/05/2025 6:4 9 PM EST 11/09/2025 10:06 PM EST Narrative [facility] - 11/09/2025 10:06 PM EST PERFORMED AT: [address] [id number] LINUX SYSTEM ADMIN: Kevin Holguin MD PHONE: [phone] Sherrie [employer] LAB BLOOD ORDERABLES Final Resul t Performing Organization Address City/[facility] Co de Phone Number [facility] [address] * (ABNORMAL) Reticulocyte Count, Auto (11/05/2025 6:49 PM EST) Retic Ct Pct 11.66(H) 0.50 - 2.00 % 11/05/2025 7:08 PM EST [facility] Retic Ct Abs 301,994(H) 25,000 - 90,000 /uL 11/05/2025 7:08 PM EST [facility] Immature Retic Fract 0.70(H) 0.09 - 0.56 11/05/2025 7:08 PM EST [facility] Whole Blood 11/05/2025 6:49 PM EST 11/05/2025 6:55 PM EST Sherrie [employer] LAB BLOOD ORDERABLES Final Resul t Performing Organization Address City/[facility]/ZIP Co de Phone Number [facility] [address] [facility]. [address] * (ABNORMAL) Parvovirus B19 Antibody, IgG And IgM (11/05/2025 6:49 PM EST) Parvovirus B19 IgG 6.4(H) 0.0 - 0.8 index 11/09/2025 12:54 PM EST [facility] Comment: Negative <0.9 Equivocal 0.9 - 1.1 Positive >1.1 Parvovirus B19 IgM 0.2 0.0 - 0.8 index 11/09/2025 12:54 PM EST [facility] Comment: Negative <0.9 Equivocal 0.9 - 1.1 Positive >1.1 Serum 11/05/2025 6:49 PM EST 11/09/2025 1:07 PM EST Narrative [facility] - 11/09/2025 1:07 PM EST PERFORMED AT: [facility] [id number] LINUX SYSTEM ADMIN: Kevin Holguin MD PHONE: [phone] [employer] LAB BLOOD ORDERABLES Final Resul t [facility] [address] * Direct Antiglobulin Test (11/05/2025 6:49 PM EST) FRANSICO Positive 11/05/2025 7:37 PM EST [facility] Blood 11/05/2025 6:49 PM EST 11/05/2025 6:58 PM EST [employer] BLOOD BANK TEST ORDERABLES Final Result Performing Organization Address City/[facility]/ZIP Co de Phone Number [facility] [address] [facility]. [address] * (ABNORMAL) Hemoglobin Free, Plasma (11/05/2025 6:49 PM EST) Hgb, Plasma 80(H) 30 - 40 mg/dL 11/05/2025 7:46 PM EST [facility] Plasma 11/05/2025 6:49 PM EST 11/05/2025 6:55 PM EST [employer] LAB BLOOD ORDERABLES Final Resul t Performing Organization Address City/[facility]/ZIP Co de Phone Number [facility] [address] [facility]. [address] * Transfuse RBC Transfusion Rate: Per dept routine (11/05/2025 5:49 PM EST) Only the most recent of9 resultswithin the time period is included. [employer] Sherrie INTERIANO NURSING TREATMENT ORDERABLES - B LOOD ADMIN Final Result EXTERNAL * LIVER BIOPSY (11/05/2025 11:35 AM EST) 11/05/2025 11:3 5 AM EST Narrative [facility] - 11/05/2025 2:47 PM EST [id number] Procedure Date: 11/05/2025 11:35 AM Patient Name: David Serrano Date of : 1960 Admit Type: Inpatient Age: 65 Gender: Male Note Status: Finalized Attending MD: Nigel Reaves MD, [id number] Procedure: Liver biopsy Indications: Abnormal Liver enzymes (no detail) Providers: Nigel Reaves MD, Pedro Pinzon MD (Fellow) Referring MD: Vani Drew Medicines: 1% Lidocaine 9 mL SubQ, Fentanyl [...] by the physician, the nurse and the technician inventory specialist in the procedure room. Mental Status Examination: [...] with the BioPince gun using ultrasound to shy the site. Verification of patient identification for [...] referring physician. Procedure Code(s): --- Professional --- 70909, GC, Biopsy of liver, needle; percutaneous 13445, GC, Ultrasonic guidance for needle placement (eg, biopsy, aspiration, injection, localization device), imaging supervision and interpretation 89681, GC, Moderate sedation services provided by the same physician or other qualified health child care teacher performing the diagnostic or therapeutic service that the sedation supports, requiring the presence of an independent trained observer to assist in the monitoring of the patient's level of consciousness and physiological status; initial 15 minutes of intraservice time, patient age 5 years or older Diagnosis Code(s): --- Professional --- R74.9, Abnormal serum enzyme level, unspecified CPT copyright 2022 [employer]. All rights reserved. The codes documented in this report are preliminary and upon crusher screen repairer review may be revised to meet current compliance requirements. Attending Participation: I was present and participated during the entire procedure, including non-carcamo portions. Nigel Reaves MD Nigel Reaves MD 11/05/2025 2:47:17 PM This report has been signed electronically.MD Sherley Ross MD Pedro Pinzon MD 11/05/2025 11:40:[address] [place] [address], [facility] Vani Drew MD PROCEDURE/MINOR SURGICAL ORD ERABLES Final Result PR[facility] * Slide Request (Make Slide and Hold) (11/05/2025 6:10 AM EST) Slide Request Done 11/05/2025 9:05 AM EST [facility] Whole Blood 11/05/2025 6:10 AM EST 11/05/2025 7:12 AM EST Narrative [facility] - 11/05/2025 12:29 PM EST Hold slide for review by->Pathologist Indication for Review:->Hemolysis/schistocytes us Sherrie INTERIANO LAB BLOOD ORDERABLES Final Resul t [facility] [address] [facility] [place] [place] [address], [facility] * (ABNORMAL) Differential (11/05/2025 6:10 AM EST) Only the most recent of3 resultswithin the time period is included. Myelocytes Relative 7.0(H) 0.0 - 0.0 % 11/05/2025 7:55 AM EST [facility] Metamyelocytes Relative 2.0(H) 0.0 - 0.0 % 11/05/2025 7:55 AM EST [facility] Neutrophils Relative 71.0 40.0 - 80.0 % 11/05/2025 7:55 AM EST [facility] Lymphocytes Relative 10.0(L) 15.0 - 45.0 % 11/05/2025 7:55 AM EST [facility] Monocytes Relative 5.0 0.0 - 12.0 % 11/05/2025 7:55 AM EST [facility] Eosinophils Relative 4.0 0.0 - 8.0 % 11/05/2025 7:55 AM EST [facility] Basophils Relative 1.0 0.0 - 1.0 % 11/05/2025 7:55 AM EST [facility] Neutrophils Absolute 9,301(H) 1,520 - 8,640 /uL 11/05/2025 7:55 AM EST [facility] nRBC 10(H) 0 - 0 /100 WBC 11/05/2025 7:55 AM EST [facility] Metamyelocytes Absolute 262(H) 0 - 0 /uL 11/05/2025 7:55 AM EST [facility] Myelocytes Absolute 917(H) 0 - 0 /uL 11/05/2025 7:55 AM EST [facility] Lymphocytes Absolute 1,310 570 - 4,860 /uL 11/05/2025 7:55 AM EST [facility] Monocytes Absolute 655 0 - 1,296 /uL 11/05/2025 7:55 AM EST [facility] Eosinophils Absolute 524 0 - 864 /uL 11/05/2025 7:55 AM EST [facility] Basophils Absolute 131(H) 0 - 108 /uL 11/05/2025 7:55 AM EST [facility] Microcytosis PRES 11/05/2025 7:55 AM EST [facility] Macrocytosis PRES 11/05/2025 7:55 AM EST [facility] [employer] 11/05/2025 7:55 AM EST [facility] PLT Morphology PLATELET MORPHO 11/05/2025 7:55 AM EST [facility] Whole Blood 11/05/2025 6:10 AM EST 11/05/2025 7:12 AM EST Narrative [facility] - 11/05/2025 7:55 AM EST Manual WBC differential performed per review criteria approved by the medical practice assistant. us Aspen Parr MD LAB BLOOD ORDERABLES Final Resul t Performing Organization Address City/State/[facility] Co de Phone Number [address] * Surgical Pathology Exam (11/05/2025 12:00 AM EST) Only the most recent of2 resultswithin the time period is included. 11/05/2025 11/06/2025 Narrative [facility] - 11/05/2025 12:00 AM EST CASE: [id number] PATIENT: DAVID SERRANO Clinical History: None Given Pre-Operative Diagnosis: None Given Post-Operative Diagnosis: None Given Specimen(s) Submitted: A. 2 Persaud Stained Peripheral Blood Smear CPT Code(s): 35981 X 1 Additional Information: FINAL DIAGNOSIS: Peripheral blood smear: - Normocytic anemia with anisocytosis and polychromasia. - Red blood cell agglutination. - No increase in schistocytes. - Mild leukocytosis with neutrophilia and few left shifted granulocytes. - No circulating blasts. Comment: Clinical correlation and follow up recommended. Complete blood count was performed at [facility] on 11/02/2025. Final Diagnosis performed by Connie Galvan MD Pathologist Electronically signed 11/07/2025 12:56:51 PM The Pathologist signing this report is located at [facility], [address] [place] [address], [place], [place], [facility], , CLIA ID: [id number] us Sherrie INTERIANO PATHOLOGY/CYTOLOGY ORDERABLES Fi nal Result [facility] * Fluoro ERCP S-I (11/04/2025 11:16 AM [...] Ernandez MD at 11/04/2025 11:25 AM EST us Matheus Bonilla MD IMG DIAGNOSTIC IMAGING ORDERABL ES Final Result * US Duplex Gcj-Abq-Iruiwhq Comp (11/03/2025 10:05 AM EST) Only the most recent of3 [...] EXAM: US ABDOMEN LIMITED EXAM: US DUPLEX [id number] COMPLETE INDICATION: Other - Must specify in [...] EXAM: US ABDOMEN LIMITED EXAM: US DUPLEX [id number] COMPLETE INDICATION: Other - Must specify in [...] ORDERABLES Final Result * US Abdomen Limited (11/03/2025 10:05 AM EST) Only the most recent of3 [...] EXAM: US ABDOMEN LIMITED EXAM: US DUPLEX [id number] COMPLETE INDICATION: Other - Must specify in [...] EXAM: US ABDOMEN LIMITED EXAM: US DUPLEX [id number] COMPLETE INDICATION: Other - Must specify in [...] 11/03/2025 11:24 AM EST Aspen Parr MD [facility] ORDERABLES Final Result * Enteric Pathogen Panel (11/03/2025 5:21 AM EST) Campylobacter Group (C. ecoli, C. jejuni, C. carie) Not Detected Not Detected 11/03/2025 11:16 AM EST [facility] Salmonella species Not Detected Not Detected 11/03/2025 11:16 AM EST [facility] Shigella species Not Detected Not Detected 11/03/2025 11:16 AM EST [facility] Vibrio Group (Vibrio cholerae, Vibrio parahaemolyticus) Not Detected Not Detected 11/03/2025 11:16 AM EST [facility] Yersinia enterocolitica Not Detected Not Detected 11/03/2025 11:16 AM EST [facility] Shiga toxin 1 Not Detected Not Detected 11/03/2025 11:16 AM EST [facility] Shiga toxin 2 Not Detected Not Detected 11/03/2025 11:16 AM EST [facility] Norovirus Not Detected Not Detected 11/03/2025 11:16 AM EST [facility] Rotavirus Not Detected Not Detected 11/03/2025 11:16 AM EST [facility] Comment: The Enteric Pathogen [...] EST 11/03/2025 7:45 AM EST Comment:[facility] - 11/03/2025 11:16 AM EST The specimen was leaking upon receipt in the laboratory.Results may be affected. Aspen Parr MD BODY FLUIDS AND STOOLS ORDERABLE S Final Result Performing Organization Address [facility] de Phone Number [facility] [address] [place] [address]. [address] * Clostridium difficile DNA Amplification (11/03/2025 5:21 AM EST) Pathologist [facility] Clost. Diff DNA Amp. Negative Negative 11/03/2025 5:50 PM EST [facility] Comment:Positive indicates t oxigenic [...] Result Performing Organization Address [facility] de Phone Number [facility] [address] [place] [address]. [address] * Histoplasma/Blastomyces Ag, EIA, U (11/03/2025 3:20 AM EST) [facility] Histoplasma/Blasto myces Ag Result (Urine) Not Detected Not Detected 11/10/2025 10:50 AM EST [facility] Comment: No antigen from Histoplasma or Blastomyces detected. False negative results may occur depending on extent of disease, and/or site of infection. Repeat testing on a new specimen if clinically indicated. Histoplasma/Blasto myces Ag Value (Urine) Not Detected ng/mL 11/10/2025 10:50 AM EST [facility] Comment: ADDITIONAL INFORMATION This test was developed and its performance characteristics determined by [facility] in a manner consistent with CLIA requirements. This test has not been cleared or approved by the U.S. Food and Drug Administration. Test Performed by: [facility] [address] [place] [address] [employer] Operator: Katherin Galindo Ph.D.; CLIA# [id number] Urine URINE SPECIMEN / Unknown 11/03/2025 3:20 AM EST 11/10/2025 10:50 AM EST Aspen Parr MD URINE ORDERABLES Final Result Performing Organization Address [facility] de Phone Number [facility] [address] [place] [address]. [address] * Strep Pneumo-Legionella Urine Antigen (11/03/2025 2:51 AM EST) Pathologist [facility] Strept Pneumo Ag Negative Negative 11/03/2025 6:12 AM EST [facility] Legionella Antigen Negative Negative 11/03/2025 6:12 AM EST [facility] Urine URINE SPECIMEN / Unknown 11/03/2025 2:51 AM EST 11/03/2025 3:39 AM EST Narrative [facility] - 11/03/2025 6:12 AM EST Positive indicates detection of either Streptococcus pneumoniae antigen or Legionella pneumophila serogroup 1 antigen. Negative results do not rule out pneumococcal infection or infection with L. pneumophila serogroup 1, other serogroups of L. pneumophila, or other Legionella species. Aspen Parr MD URINE ORDERABLES Final Result Performing Organization Address [facility] de Phone Number [facility]. [address] * (ABNORMAL) Respiratory viral panel (11/03/2025 2:51 AM EST) Adenovirus Not Detected Not Detected 11/03/2025 6:09 AM EST [facility] Coronavirus (229E,HKU1,NL63,OC 43) Detected(A) Not Detected 11/03/2025 6:09 AM EST [facility] SARS-CoV-2 Not Detected Not Detected 11/03/2025 6:09 AM EST [facility] Human Metapneumovirus Not Detected Not Detected 11/03/2025 6:09 AM EST [facility] Human Rhinovirus/Enterov irus Not Detected Not Detected 11/03/2025 6:09 AM [facility] Influenza A Not Detected Not Detected 11/03/2025 6:09 AM [facility] Influenza A H1 Not Detected Not Detected 11/03/2025 6:09 AM [facility] Influenza A/H1-2009 Not Detected Not Detected 11/03/2025 6:09 AM [facility] Influenza A H3 Not Detected Not Detected 11/03/2025 6:09 AM [facility] Influenza B Not Detected Not Detected 11/03/2025 6:09 AM [facility] Parainfluenza 1 Not Detected Not Detected 11/03/2025 6:09 AM [facility] Parainfluenza 2 Not Detected Not Detected 11/03/2025 6:09 AM [facility] Parainfluenza 3 Not Detected Not Detected 11/03/2025 6:09 AM [facility] Parainfluenza 4 Not Detected Not Detected 11/03/2025 6:09 AM [facility] Resp. Syncycial Virus A Not Detected Not Detected 11/03/2025 6:09 AM [facility] Resp. Syncycial Virus B Not Detected Not Detected 11/03/2025 6:09 AM [facility] Chlamydia pneumoniae Not Detected Not Detected 11/03/2025 6:09 AM [facility] Mycoplasma pneumoniae Not Detected Not Detected 11/03/2025 6:09 AM [facility] Comment: The Respiratory Viral-Bacterial Panel is [...] Test results have been sent to the [facility] in accordance with state requirements. For a fact sheet for healthcare providers, see https://www.fda.gov/media/298129/download. For a fact sheet for patients, see https://www.fda.gov/media/643515/download. Nasopharyngeal Swab NASOPHARYNGEAL STRUCTURE / Unknown 11/03/2025 2:51 AM EST 11/03/2025 3:40 AM EST us Aspen Parr MD BODY FLUIDS AND STOOLS ORDERABLE S Final Result [facility] [address] [place] [address], [facility] * (ABNORMAL) Urinalysis w/Rfl to Microscopic (11/03/2025 2:51 AM EST) Only the most recent of2 resultswithin the time period is included. Color, UA Yellow Yellow,Straw 11/03/2025 3:32 AM EST [facility] Clarity, UA Clear Clear 11/03/2025 3:32 AM EST [facility] Specific [place], UA >1.035(H) 1.005 - 1.035 11/03/2025 3:32 AM EST [facility] pH, UA 6.5 5.0 - 8.0 11/03/2025 3:32 AM EST [facility] Protein, UA Negative Negative mg/dL 11/03/2025 3:32 AM EST [facility] Glucose, UA Negative Negative mg/dL 11/03/2025 3:32 AM EST [facility] Ketones, UA Negative Negative mg/dL 11/03/2025 3:32 AM EST [facility] Bilirubin, UA Negative Negative 11/03/2025 3:32 AM EST [facility] Blood, UA Negative Negative 11/03/2025 3:32 AM EST [facility] Nitrite, UA Negative Negative 11/03/2025 3:32 AM EST [facility] Urobilinogen, UA <2.0 0.2 - 1.9 mg/dL 11/03/2025 3:32 AM EST [facility] Leukocyte Esterase, UA Small(A) Negative 11/03/2025 3:32 AM EST [facility] RBC, UA 3 0 - 3 /HPF 11/03/2025 3:32 AM EST [facility] WBC, UA 16(H) 0 - 5 /HPF 11/03/2025 3:32 AM EST [facility] Squam Epithel, UA <1 0 - 5 /HPF 11/03/2025 3:32 AM EST [facility] Urine 11/03/2025 2:51 AM EST 11/03/2025 2:59 AM EST us Aspen Parr MD URINE ORDERABLES Final Result [facility] [address] [facility] [place] [address], [facility] * CT Abdomen and Pelvis With [...] focus of free air were discussed with Javier Grimm CNP on 11/03/2025 11:08 AM EST [...] CT ORDERABLES Edited Result - Final * ABO/Rh (11/02/2025 11:44 PM EST) Only the most recent of3 resultswithin the time period is included. ABO Grouping A 11/03/2025 12:47 AM EST [facility] Rh Type Positive 11/03/2025 12:47 AM EST [facility] Blood 11/02/2025 11:4 4 PM EST 11/02/2025 11:49 PM EST Aspen Parr MD BLOOD BANK TEST ORDERABLES Final Result [facility] [address] * Antibody Screen (11/02/2025 11:44 PM EST) Only the most recent of2 resultswithin the time period is included. Antibody Screen Negative 11/03/2025 12:25 AM EST [facility] Blood 11/02/2025 11:4 4 PM EST 11/02/2025 11:49 PM EST Narrative [facility] - 11/03/2025 12:44 AM EST Testing performed by [facility] us Aspen Parr MD BLOOD BANK TEST ORDERABLES Final Result Performing Organization Address [facility] Co de Phone Number [facility] [address] [facility]. [address] * Histoplasma/Blastomyces Ag, EIA, S (11/02/2025 9:13 PM EST) Histoplasma/Blasto myces Ag Result (Serum) Not Detected Not Detected 11/09/2025 12:42 PM EST [facility] Comment: No antigen from Histoplasma or Blastomyces detected. False negative results may occur depending on extent of disease, and/or site of infection. Repeat testing on a new specimen if clinically indicated. Histoplasma/Blasto myces Ag Value (Serum) Not Detected ng/mL 11/09/2025 12:42 PM EST [facility] Comment: ADDITIONAL INFORMATION This test was developed and its performance characteristics determined by [facility] in a manner consistent with CLIA requirements. This test has not been cleared or approved by the U.S. Food and Drug Administration. Test Performed by: [facility] [place] [address] [employer] Machine Operator: Katherin Galindo Ph.D.; CLIA# [id number] Serum SERUM SPECIMEN / Unknown 11/02/2025 9:13 PM EST 11/09/2025 12:42 PM EST Comment:S Aspen Parr MD LAB BLOOD ORDERABLES Final Resul t [facility] [address] [facility]. [address] * Blood culture-Peripheral (Blood) (11/02/2025 9:13 PM EST) Only the most recent of2 resultswithin the time period is included. Culture Result No Growth After 5 Days [facility] Blood BLOOD SPECIMEN / Unknown 11/02/2025 9:13 PM EST 11/02/2025 9:33 PM EST Narrative [facility] - 11/07/2025 9:49 PM EST Please obtain two separate peripheral sticks us Aspen Parr MD MICROBIOLOGY - GENERAL ORDERABLE S Final Result [facility] [address] [place] [id number], [facility] * Fungitell (11/02/2025 9:08 PM EST) Fungitell Value <31.25 pg/mL 4:19 PM EST [facility] Reference Value Comment 4:19 PM EST [facility] Comment:Negative: <60, Posit silverio: >/=60 Clinical Relevance Notes 2024 4:19 PM EST [facility] Comment: The Fungitell test [...] Cryptococcus, which produce very low levels of (1,3)-kubh-G-ayqxib. This test will not detect the zygomycetes, such as Absidia, Blastomyces, Mucor, and Rhizopus, which are not known to produce (1,3)-tlqf-D-aktedu. In addition, the yeast phase of Blastomyces dermatitidis produces little (1,3)-wxgm-O-pqhxxx and may not be detected by the assay. Disclaimer: Notes 11/06/2025 4:19 PM EST [facility] Comment: This test has been cleared or approved for diagnostic use by the U.S. Food and Drug Administration. Performance characteristics were verified by [employer]. Electronically signed by: Comment 11/06/2025 4:19 PM EST [facility] Comment:Kesha Macias Fungitell Result Comment 11/06/20 4:19 PM EST [facility] Comment:Negative Interpretation Notes 11/06/2025 4:19 PM EST [facility] Comment: (1,3) Weje-S-Exfiaq was NOT DETECTED in the sample. Reasons for negative results could include the patient being in the early stage of infection before detectable levels of (1,3) Wbmi-X-Pbgvza are present. Clinical diagnosis should be made in the context of the patient's complete medical history. Serum 11/02/2025 9:08 PM EST 11/06/2025 5:07 PM EST Narrative [facility] - 11/06/2025 5:07 PM EST PERFORMED AT: [employer] [address] [place] [address] [address] [place], [place] [id number] [employer] ADMIN: Serge Anderson, PhD PHONE: [phone] Aspen Parr MD LAB BLOOD ORDERABLES Final Resul t Performing Organization Address City/[facility] Co de Phone Number [facility] [address] [facility]. [address] * Cryptococcus Ag (11/02/2025 9:08 PM EST) Pathologist [facility] Crypto Ag, Ser Negative Negative 11/02/2025 10:33 PM EST [facility] Crypto Ag Titer, Ser Not Applicable 11/02/2025 10:33 PM EST [facility] Serum SERUM SPECIMEN / Unknown 11/02/2025 9:08 PM EST 11/02/2025 9:56 PM EST Comment:S Aspen Parr MD LAB BLOOD ORDERABLES Final Resul t Performing Organization Address City/[facility]/ZIP Co de Phone Number [facility] [address] [place] [address]. [address] * Cytomegalovirus (CMV) PCR (11/02/2025 9:08 PM EST) Pathologist [facility] CMV DNA Qnt Not Detected IU/mL 11/05/2025 11:37 AM EST [facility] Comment:Test methodology for CMV DNA quantification is an FDA-approved nucleic acid amplification assay. The Lower Limit of Quantitation (LLOQ) and Limit of Detection (LoD) for EDTA plasma is 34.5 IU/mL. The linear range of the assay is 34.5- 10,000,000 IU/mL. The reference range is Not Detected. Log10 CMV Qn DNA PI See Note log 10 IU/mL 11/05/2025 11:37 AM EST [facility] Comment:CMV DNA not detected Plasma 11/02/2025 9:08 PM EST 11/02/2025 9:36 PM EST us Aspen Parr MD LAB BLOOD ORDERABLES Final Resul t [facility] [address] [facility]. [place] [id number], [facility] * (ABNORMAL) Renal Function Panel w/EGFR (11/02/2025 9:08 PM EST) Only the most recent of13 resultswithin the time period is included. Sodium 132(L) 133 - 146 mmol/L 11/02/2025 10:01 PM [facility] Potassium 4.6 3.5 - 5.3 mmol/L 11/02/2025 10:01 PM [facility] Chloride 103 98 - 110 mmol/L 11/02/2025 10:01 PM [facility] CO2 22 21 - 33 mmol/L 11/02/2025 10:01 PM [facility] Comment:High lactate dehydro genase concentrations in patient samples may cause falsely increased bicarbonate results. If markedly elevated LDH is observed or suspected, please assess results in conjunction with patient`s clinical presentation. In cases of discrepant results, consider evaluating CO2 in with a blood gas order. Anion Gap 7 3 - 16 mmol/L 11/02/2025 10:01 PM [facility] BUN 29(H) 7 - 25 mg/dL 11/02/2025 10:01 PM [facility] Creatinine 1.17 0.60 - 1.30 mg/dL 11/02/2025 10:01 PM [facility] Glucose 289(H) 70 - 100 mg/dL 11/02/2025 10:01 PM [facility] Calcium 7.8(L) 8.6 - 10.3 mg/dL 11/02/2025 10:01 PM [facility] Phosphorus 3.4 2.1 - 4.7 mg/dL 11/02/2025 10:01 PM EST [facility] Albumin 2.8(L) 3.5 - 5.7 g/dL 11/02/2025 10:01 PM EST [facility] Osmolality, Calculated 290 278 - 305 mOsm/kg 11/02/2025 10:01 PM EST [facility] EGFR 70 11/02/2025 10:01 PM EST [facility] Comment:As of 2022, the [...] MD LAB BLOOD ORDERABLES Final Resul t [facility] [address] [place] [address], [facility] * Jose-Mims Virus (EBV) PCR (11/02/2025 9:08 PM EST) EBV DNA, Quantitative PCR <35 IU/mL 11/05/2025 2:02 PM EST [facility] EBV DNA, Log10 See Note log 10 IU/mL 11/05/2025 2:02 PM EST [facility] Comment: Beginning March 09, 2023, [facility] has transitioned EBV viral load testing [...] t Performing Organization Address [facility] de Phone Number [facility] [address] [facility]. [address] * Adenovirus PCR (11/02/2025 9:08 PM EST) Adenovirus, Quantitative PCR 0 0 - 0 copies/mL 11/07/2025 2:36 PM EST [facility] Comment: Testing performed by [facility], [address] [place] [address]. This test(s) was developed and its performance characteristics determined and validated by the Department of Pathology and Laboratory Medicine at [facility]. It has not been cleared or approved [...] t Performing Organization Address [facility] Co de Phone Number [facility] [address] * Aspergillus Ag (11/02/2025 9:08 PM EST) [facility] Aspergillus Ag. 0.03 0.00 - 0.49 Index 11/07/2025 5:53 PM EST [facility] Serum SERUM SPECIMEN / Unknown 11/02/2025 9:08 PM EST 11/09/2025 12:07 PM EST Comment:S Aspen Parr MD BODY FLUIDS AND STOOLS ORDERABLE S Final Result [facility] [address] * (ABNORMAL) CBC and differential (11/01/2025 7:05 AM EST) Only the most recent of4 resultswithin the time period is included. [facility] Hemoglobin 7.7(A) 13.5 - 17.5 g/dL Hematocrit [...] ORDERABLE S Final Result Performing Organization Address City/State/[facility] Co de Phone Number [facility] [address] [place] [address] * (ABNORMAL) Protime-INR (10/19/2025 11:03 PM EST) Only the most recent of14 resultswithin the time period is included. Protime 18.2(H) 12.1 - 15.1 seconds 10/19/2025 11:27 PM EST [facility] INR 1.4(H) 0.9 - 1.1 10/19/2025 11:27 PM EST [facility] Comment: RECOMMENDED THERAPEUTIC RANGES USING INR : Stable oral anticoagulant therapy: 2.0 - 3.0 Mechanical prosthetic heart valve: 2.5 - 3.5 Recurrent acute myocardial infarction: 2.5 - 3.5 Plasma 10/19/2025 11:0 3 PM EST 10/19/2025 11:07 PM EST us Aspen Parr MD LAB BLOOD ORDERABLES Final Resul t [facility] [address] * Lactic Acid (10/18/2025 10:20 PM EST) Only the most recent of5 resultswithin the time period is included. Lactate 0.8 0.5 - 2.2 mmol/L 10/18/2025 11:03 PM EST [facility] Plasma 10/18/2025 10:2 0 PM EST 10/18/2025 10:26 PM EST us Aspen Parr MD LAB BLOOD ORDERABLES Final Resul t [facility] [address] * Prepare Fresh Frozen Plasma (10/18/2025 11:58 AM EST) Only the most recent of2 resultswithin the time period is included. Product Code D6772Q53 HCLL Unit Number [id number] HCLL Dispense Status Released from Crossmatch_RE HCLL Blood Expiration Date HCLL Coding System [id number] HCLL Product Code U1761D08 HCLL Unit Number [id number] HCLL Dispense Status Released from Crossmatch_RE HCLL Blood Expiration Date HCLL Coding System ECLV898 HCLL Product Code C4740W40 HCLL Unit Number [id number] HCLL Dispense Status Released from Crossmatch_RE HCLL Blood Expiration Date HCLL Coding System JIRI267 HCLL Product Code W4456K80 HCLL Unit Number [id number] HCLL Dispense Status Released from Crossmatch_RE HCLL Blood Expiration Date HCLL Coding System CCLE037 HCLL Product Code J7783E16 HCLL Unit Number [id number] HCLL Dispense Status Released from Crossmatch_RE HCLL Blood Expiration Date HCLL Coding System [id number] HCLL us Attending Provider Unknown BLOOD BANK [...] below level of diaphragms and outside the [id number]. Right internal jugular approach pulmonary artery catheter [...] courses below level of diaphragms andoutside the [id number]-[id number]. Right internal jugular approach pulmonaryartery catheter projects [...] 7:02 AM EST us Aspen Parr MD IMG DIAGNOSTIC IMAGING ORDERABLE S Final Result * Prepare Platelets, leukoreduced, 1 Units (10/18/2025 6:17 AM EST) Only the most recent of2 resultswithin the time period is included. Product Code R6151U77 HCLL Unit Number [id number] HCLL Dispense Status Presumed Transfused_PT HCLL Blood Expiration Date HCLL Coding System [id number] HCLL Blood Bank Product Oskar Torres MD BLOOD BANK PRODUCT ORDERABLES Final Result HCLL * Prepare Cryoprecipitate (10/18/2025 6:15 AM EST) Only the most recent of5 resultswithin the time period is included. Product Code R0403U58 HCLL Unit Number [id number] HCLL Dispense Status Presumed Transfused_PT HCLL Blood Expiration Date HCLL Coding System [id number] HCLL Attending Provider Unknown BLOOD BANK PRODUCT OR DERABLES Final Result Performing Organization Address City/[facility] Co de Phone Number HCLL * (ABNORMAL) Blood gas, arterial (10/18/2025 5:19 AM EST) Only the most recent of2 resultswithin the time period is included. O2 Sat, Arterial 97 10/18/2025 5:28 AM EST [facility] FIO2 40 10/18/2025 5:28 AM EST [facility] pH, Arterial 7.34(L) 7.35 - 7.45 10/18/2025 5:28 AM [facility] pCO2, Arterial 48(H) 35 - 45 mm Hg 10/18/2025 5:28 AM EST [facility] pO2, Arterial 84 80 - 100 mm Hg 10/18/2025 5:28 AM EST [facility] HCO3, Arterial 25 22 - 26 mmol/L 10/18/2025 5:28 AM EST [facility] CO2 Content,Arteri al 27 23 - 27 mmol/L 10/18/2025 5:28 AM EST [facility] Base Excess, Arterial -0.2 -2.0 - 3.0 mmol/L 10/18/2025 5:28 AM EST [facility] %HBO2, Arterial 94.1(L) 95.0 - 98.0 % 10/18/2025 5:28 AM EST [facility] Carboxyhemoglo bin, Arterial 2.5 % 10/18/2025 5:28 AM EST [facility] Comment: CARBOXYHEMOGLOBIN (CO) REFERENCE RANGES: Non-Smokers: <2 % Smokers: <8 % TOXIC: >20 % Methemoglobin, Arterial 0.5 0.0 - 1.5 % 10/18/2025 5:28 AM EST [facility] Blood, Arterial 10/18/2025 5 :19 AM EST 10/18/2025 5:25 AM EST us Vani Drew MD LAB BLOOD ORDERABLES Final R esult Performing Organization Address City/State/[facility] Co de Phone Number [facility] [address] * XR Portable Feeding Tube Check (10/17/2025 [...] 10/17/2025 11:50 PM EST Duarte Jackson MD [facility] DIAGNOSTIC IMAGI NG ORDERABLES Final Result * (ABNORMAL) TEG-Standard Global Hemostasis (Rapid TEG with Heparin Effect, Contains a Baseline TEG) (10/17/2025 10:50 PM EST) Only the most recent of2 resultswithin the time period is included. Citrated Kaolin Reaction Time (TEGHEPARINASE) 12.7(H) 4.6 - 9.1 minutes 10/18/2025 12:03 AM EST [facility] Citrated Rapid Teg Maximum Amplitude (TEGHEPARINASE) 47.8(L) 52.0 - 70.0 mm 10/18/2025 12:03 AM EST [facility] Citrated Functional Fibrinogen Maximum Amplitude (TEGHEPARINASE) 16.8 15.0 - 32.0 mm 10/18/2025 12:03 AM EST [facility] Citrated Kaolin W/Heparinase Reaction Time (TEGHEPARINASE) 11.0(H) 4.3 - 8.3 minutes 10/18/2025 12:03 AM EST [facility] Citrated Kaolin K-Time (TEGHEPARINASE) 4.9(H) 0.8 - 2.1 minutes 10/18/2025 12:03 AM EST [facility] Citrated Kaolin Angle (TEGHEPARINASE) 40.0(L) 63.0 - 78.0 degrees 10/18/2025 12:03 AM EST [facility] Citrated Kaolin Maximum Amplitude (TEGHEPARINASE) 45.2(L) 52.0 - 69.0 mm 10/18/2025 12:03 AM EST [facility] Citrated Functional Fibrinogen- Fibrinogen Level (TEGHEPARINASE) 306.6 278.0 - 581.0 mg/dL 10/18/2025 12:03 AM EST [facility] Whole Blood (Citrate) 10/17/2025 10:50 PM EST 10/17/2025 10:55 PM EST us Aspen Parr MD LAB BLOOD ORDERABLES Final Resul t [facility] [address] * Calcium Free, Serum (10/17/2025 10:50 PM EST) Free Calcium, Ser 4.76 4.40 - 5.40 mg/dL 10/17/2025 11:15 PM EST [facility] Comment:Free calcium levels vary inversely with pH by approximately 5% for each 0.1 unit of pH change. Assay results have been normalized to pH = 7.40. Serum 10/17/2025 10:5 0 PM EST 10/17/2025 10:55 PM EST Narrative [facility] - 10/17/2025 11:15 PM EST This test has been developed and its performance characteristics determined by [facility] which is certified under the [...] BLOOD ORDERABLES Final Result Performing Organization Address City/[facility]/ZIP Co de Phone Number [address] * Fibrinogen (10/17/2025 10:50 PM EST) Only the most recent of6 resultswithin the time period is included. Fibrinogen 253 218 - 406 mg/dL 10/17/2025 11:06 PM EST [facility] Plasma 10/17/2025 10:5 0 PM EST 10/17/2025 10:55 PM EST Aspen Parr MD LAB BLOOD ORDERABLES Final Resul t Performing Organization Address [facility] Co de Phone Number [facility] [address] [place] [address]. [address] * POC Lactate (10/17/2025 9:25 PM EST) Only the most recent of8 resultswithin the time period is included. POC Lactate 1.50 0.50 - 2.20 mmol/L 10/17/2025 9:51 PM EST [facility] Blood, Arterial 10/17/2025 9 :25 PM EST 10/17/2025 9:51 PM EST Vani Drew MD POINT OF CARE TEST ORDERABLE S Final Result Performing Organization Address City/[facility] Co de Phone Number [facility] [address] [place] [address]. [address] * POC TCO2 (10/17/2025 9:25 PM EST) Only the most recent of8 resultswithin the time period is included. POC TCO2, Arterial 23 23 - 27 mmol/L 10/17/2025 9:51 PM EST [facility] Blood, Arterial 10/17/2025 9 :25 PM EST 10/17/2025 9:51 PM EST Vani Drew MD POINT OF CARE TEST ORDERABLE S Final Result Performing Organization Address City/[facility]/ZIP Co de Phone Number [facility] [address] * POC Sodium (10/17/2025 9:25 PM EST) Only the most recent of8 resultswithin the time period is included. POC Sodium 142 136 - 146 mmol/L 10/17/2025 9:51 PM EST [facility] Blood, Arterial 10/17/2025 9 :25 PM EST 10/17/2025 9:51 PM EST Vani Drew MD POINT OF CARE TEST ORDERABLE S Final Result Performing Organization Address [facility] Co de Phone Number [facility] [address] [facility]. [address] * POC Potassium (10/17/2025 9:25 PM EST) Only the most recent of8 resultswithin the time period is included. POC Potassium 3.7 3.5 - 5.3 mmol/L 10/17/2025 9:51 PM EST [facility] Blood, Arterial 10/17/2025 9 :25 PM EST 10/17/2025 9:51 PM EST Vani Drew MD POINT OF CARE TEST ORDERABLE S Final Result Performing Organization Address City/[facility] Co de Phone Number [facility] [address] [facility]. [address] * (ABNORMAL) POC PO2 (10/17/2025 9:25 PM EST) Only the most recent of8 resultswithin the time period is included. POC pO2, Arterial 161(H) 80 - 100 mm Hg 10/17/2025 9:51 PM EST [facility] Blood, Arterial 10/17/2025 9 :25 PM EST 10/17/2025 9:51 PM EST us Vani Drew MD POINT OF CARE TEST ORDERABLE S Final Result Performing Organization Address City/[facility]/ZIP Co de Phone Number [facility] [address] * POC PCO2 (10/17/2025 9:25 PM EST) Only the most recent of8 resultswithin the time period is included. POC pCO2, Arterial 38 35 - 45 mm Hg 10/17/2025 9:51 PM EST [facility] Blood, Arterial 10/17/2025 9 :25 PM EST 10/17/2025 9:51 PM EST Vani Drew MD POINT OF CARE TEST ORDERABLE S Final Result Performing Organization Address [facility] Co de Phone Number [facility] [address] * (ABNORMAL) POC O2 SAT (10/17/2025 9:25 PM EST) Only the most recent of8 resultswithin the time period is included. POC O2 Saturation, Arterial 99(H) 95 - 98 % 10/17/2025 9:51 PM EST [facility] Blood, Arterial 10/17/2025 9 :25 PM EST 10/17/2025 9:51 PM EST Vani Drew MD POINT OF CARE TEST ORDERABLE S Final Result Performing Organization Address City/[facility] Co de Phone Number [facility] [address] [facility]. [address] * POC HCO3 (10/17/2025 9:25 PM EST) Only the most recent of8 resultswithin the time period is included. POC HCO3, Arterial 22 22 - 26 mmol/L 10/17/2025 9:51 PM EST [facility] Blood, Arterial 10/17/2025 9 :25 PM EST 10/17/2025 9:51 PM EST Vani Drew MD POINT OF CARE TEST ORDERABLE S Final Result [facility] [address] * (ABNORMAL) POC Chloride (10/17/2025 9:25 PM EST) Only the most recent of8 resultswithin the time period is included. POC Chloride 111(H) 98 - 110 mmol/L 10/17/2025 9:51 PM EST [facility] Blood, Arterial 10/17/2025 9 :25 PM EST 10/17/2025 9:51 PM EST Vani Drew MD POINT OF CARE TEST ORDERABLE S Final Result Performing Organization Address [facility] Co de Phone Number [facility] [address] [facility]. [address] * (ABNORMAL) POC Base Excess (10/17/2025 9:25 PM EST) Only the most recent of8 resultswithin the time period is included. POC Base Excess, Arterial -3(L) -2 - 3 mmol/L 10/17/2025 9:51 PM EST [facility] Blood, Arterial 10/17/2025 9 :25 PM EST 10/17/2025 9:51 PM EST Vani Drew MD POINT OF CARE TEST ORDERABLE S Final Result [facility] [address] * POC Anion Gap (10/17/2025 9:25 PM EST) Only the most recent of8 resultswithin the time period is included. POC Anion Gap, Arterial 9 3 - 16 mmol/L 10/17/2025 9:51 PM EST [facility] Blood, Arterial 10/17/2025 9 :25 PM EST 10/17/2025 9:51 PM EST Vani Drew MD POINT OF CARE TEST ORDERABLE S Final Result [facility] [address] [facility]. [address] * POC Sample Type (10/17/2025 9:25 PM EST) Only the most recent of8 resultswithin the time period is included. POC Sample Type Arterial 10/17/2025 9:51 PM EST [facility] Blood, Arterial 10/17/2025 9 :25 PM EST 10/17/2025 9:51 PM EST Vani Drew MD POINT OF CARE TEST ORDERABLE S Final Result Performing Organization Address [facility] Co de Phone Number [facility] [address] [facility]. [address] * POC pH (10/17/2025 9:25 PM EST) Only the most recent of8 resultswithin the time period is included. POC pH, Arterial 7.37 7.35 - 7.45 10/17/2025 9:51 PM EST [facility] Blood, Arterial 10/17/2025 9 :25 PM EST 10/17/2025 9:51 PM EST us Vani Drew MD POINT OF CARE TEST ORDERABLE S Final Result Performing Organization Address City/[facility] Co de Phone Number [facility] [address] [facility]. [address] * (ABNORMAL) POC hematocrit (10/17/2025 9:25 PM EST) Only the most recent of8 resultswithin the time period is included. POC Hematocrit 26.0(L) 40 - 52 % 10/17/2025 9:51 PM EST [facility] Blood, Arterial 10/17/2025 9 :25 PM EST 10/17/2025 9:51 PM EST Vani Drew MD POINT OF CARE TEST ORDERABLE S Final Result Performing Organization Address City/[facility]/ZIP Co de Phone Number [facility] [address] [place] [address]. [address] * POC Ionized Calcium (10/17/2025 9:25 PM EST) Only the most recent of8 resultswithin the time period is included. POC Ionized Calcium 4.90 4.50 - 5.30 mg/dL 10/17/2025 9:51 PM EST [facility] Blood, Arterial 10/17/2025 9 :25 PM EST 10/17/2025 9:51 PM EST Vani Drew MD POINT OF CARE TEST ORDERABLE S Final Result Performing Organization Address [facility] de Phone Number [facility] [address] [place] [address]. [address] * (ABNORMAL) POC Glucose (10/17/2025 9:25 PM EST) Only the most recent of8 resultswithin the time period is included. POC Glucose, Arterial 227(H) 70 - 100 mg/dL 10/17/2025 9:51 PM EST [facility] Blood, Arterial 10/17/2025 9 :25 PM EST 10/17/2025 9:51 PM EST Vani Drew MD POINT OF CARE TEST ORDERABLE S Final Result Performing Organization Address City/[facility] Co de Phone Number [facility] [address] [place] [address]. [address] * (ABNORMAL) POC Hemoglobin (10/17/2025 9:25 PM EST) Only the most recent of8 resultswithin the time period is included. POC Hemoglobin 9.0(L) 14.0 - 18.0 g/dL 10/17/2025 9:51 PM EST [facility] Blood, Arterial 10/17/2025 9 :25 PM EST 10/17/2025 9:51 PM EST Result [facility] Vani Drew MD POINT OF CARE TEST ORDERABLE S Final Result Performing Organization Address [facility] Co de Phone Number [facility] [address] [facility]. [address] * (ABNORMAL) POC INR (10/17/2025 9:24 PM EST) Only the most recent of8 resultswithin the time period is included. Prothrombin Time INR, POC 2.3(H) 0.8 - 1.4 10/18/2025 12:08 AM EST [facility] Comment: Test results may [...] ORDERABLE S Final Result Performing Organization Address City/[facility] Co de Phone Number [facility] [address] [facility]. [address] * Transfuse Fresh Frozen Plasma (10/17/2025 9:17 PM EST) Only the most recent of5 resultswithin the time period is included. Result [facility] Shannan Salas MD NURSING TREATMENT ORDERABLES - [...] of4 resultswithin the time period is included. [facility] Citrated Kaolin Reaction Time (TEGECMOLIVER) 9.7(H) 4.6 - 9.1 minutes 10/17/2025 10:13 PM EST [facility] Citrated Kaolin W/Heparinase Reaction Time (TEGECMOLIVER) 3.4(L) 4.3 - 8.3 minutes 10/17/2025 10:13 PM EST [facility] Citrated Kaolin Maximum Amplitude (TEGECMOLIVER) 45.4(L) 52.0 - 69.0 mm 10/17/2025 10:13 PM EST [facility] Citrated Functional Fibrinogen W/Heparinase Maximum Amplitude(TEGEC MOLIVER) 18.0 15.0 - 34.0 mm 10/17/2025 10:13 PM EST [facility] Citrated Rapid Teg W/Heparinase Maximum Amplitude (TEGECMOLIVER) 40.5(L) 53.0 - 69.0 mm 10/17/2025 10:13 PM EST [facility] Citrated Kaolin w/Heparinase Percent Lysis (TEGECMOLIVER) 0.0 0.0 - 3.2 % 10/17/2025 10:13 PM EST [facility] Whole Blood (Citrate) 10/17/2025 8:31 PM EST 10/17/2025 8:40 PM EST Oskar Torres MD LAB BLOOD ORDERABLES Final Re sult [facility] [address] [place] [address], [facility] * (ABNORMAL) APTT, No Anticoagulant (10/17/2025 4:56 PM EST) Only the most recent of2 resultswithin the time period is included. aPTT 55.7(H) 25.5 - 35.0 seconds 10/17/2025 5:32 PM EST [facility] Plasma 10/17/2025 4:56 PM EST 10/17/2025 5:06 PM EST Slade Munoz MD LAB BLOOD ORDERABLES Final Resul t Performing Organization Address City/[facility]/ZIP Co de Phone Number [facility] [address] [facility]. [address] * Routine Culture plus Stain (Surgical Swab) (10/17/2025 2:50 PM EST) Gram Stain Result Rare Polymorphonuclear Leukocytes Seen [facility] Gram Stain Result No Organisms Seen; [facility] Culture Result No Growth After 3 Days [facility] Surgical Swab PERITONEAL FLUID / Unknown 10/17/2025 2:50 PM EST Comment:1. Ascites-anaerobic , aerobic, and fungal Narrative [facility] - 10/20/2025 11:09 AM EST 1. Ascites-anaerobic, aerobic, and fungal 1. Ascites-anaerobic, aerobic, and fungal Vani Drew MD MICROBIOLOGY - GENERAL ORDER MARYA Final Result Performing Organization Address City/[facility]/ZIP Co de Phone Number [facility] [address] [facility]. [address] * Anaerobic culture (Surgical Swab) (10/17/2025 2:50 PM EST) Culture Result No Anaerobes Isolated in 5 Days [facility] Surgical Swab PERITONEAL FLUID / Unknown 10/17/2025 2:50 PM EST Comment:1. Ascites-anaerobic , aerobic, and fungal Narrative [facility] - 10/22/2025 11:32 AM EST 1. Ascites-anaerobic, aerobic, and fungal 1. Ascites-anaerobic, aerobic, and fungal us Vani Drew MD MICROBIOLOGY - GENERAL ORDER MARYA Final Result [facility] [address] [place] [address], [facility] * CENTRAL LINE SINGLE LUMEN PERFORMABLE, HC [...] PULMONARY ARTERY CATHETER (10/17/2025 2:36 PM EST) Salde Sheehan DO - 10/17/2025 2:36 PM EST [...] post op PA catheter complications: None Result [facility] Slade Munoz MD IV THERAPY ORDERABLES Final Resu lt * Insert Arterial Line (10/17/2025 2:15 PM EST) Narrative Slade Munoz MD - 10/17/2025 2:15 PM EST Slade [...] tape, sterile dressing applied and sutured Result [facility] Slade Munoz MD IV THERAPY ORDERABLES Final Resu lt * Hepatitis C RNA, Quant Reflex to Genotyp (10/17/2025 10:19 AM EST) International Units Not Detected IU/mL 10/19/2025 2:12 PM EST [facility] Comment:Test methodology for HCV RNA quantification is an FDA-approved nucleic acid amplification assay. The Lower Limit of Quantitation (LLOQ) is 15 IU/mL. The linear range of the assay is 15-100,000,000 IU/mL. The Limit of Detection (LoD) is 12.0 IU/mL for EDTA plasma. The reference range is Not Detected. IU log10 See Note log 10 IU/mL 10/19/2025 2:12 PM EST [facility] Comment:HCV RNA not detected . Plasma 10/17/2025 10:1 9 AM EST 10/17/2025 11:09 AM EST [facility] BLOOD ORDERABLES Final Re sult [facility] [address] [facility]. [address] * Hepatitis A Antibody Total (10/17/2025 10:18 AM EST) Anti-HAV Total (IgG + IgM) Reactive 10/17/2025 12:22 PM EST [facility] Serum 10/17/2025 10:1 8 AM EST 10/17/2025 10:46 AM EST Narrative [facility] - 10/17/2025 12:22 PM EST HAV antibodies detected [facility] BLOOD ORDERABLES Final Re sult Performing Organization Address City/[facility] Co de Phone Number [facility] [address] [facility]. [address] * (ABNORMAL) Venous Blood Gas, Line/Syringe, STAT (10/17/2025 10:18 AM EST) PH-Line Draw 7.37 7.32 - 7.42 10/17/2025 10:27 AM [facility] PCO2-Line Draw 46 41 - 51 mm Hg 10/17/2025 10:27 AM [facility] PO2-Line Draw 29 25 - 40 mm Hg 10/17/2025 10:27 AM [facility] HCO3-Line Draw 24 24 - 28 mmol/L 10/17/2025 10:27 AM [facility] CO2 Content-Line Draw 28 25 - 29 mmol/L 10/17/2025 10:27 AM [facility] Base Excess-Line Draw 0.9 -2.0 - 3.0 mmol/L 10/17/2025 10:27 AM [facility] %HBO2-Line Draw 38.5(L) 40.0 - 70.0 % 10/17/2025 10:27 AM [facility] Carboxyhgb-Rebecca e Draw 1.4 0.0 - 2.0 % 10/17/2025 10:27 AM [facility] Comment: CARBOXYHEMOGLOBIN (CO) REFERENCE RANGES: Non-Smokers: <2 % Smokers: <8 % TOXIC: >20 % Methemoglobin- Line Draw 0.6 0.0 - 1.5 % 10/17/2025 10:27 AM EST [facility] Blood, Venous 10/17/2025 10: 18 AM EST 10/17/2025 10:24 AM EST [facility] BLOOD ORDERABLES Final Re sult Performing Organization Address [facility] Co de Phone Number [facility] [address] [place] [address]. [address] * CMV IgG Antibody (10/17/2025 10:18 AM EST) CMV IgG Negative Negative 10/17/2025 12:16 PM EST [facility] CMV IGG NUM <0.20 0.00 - 0.59 U/mL 10/17/2025 12:16 PM EST [facility] Serum 10/17/2025 10:1 8 AM EST 10/17/2025 10:46 AM EST [facility] BLOOD ORDERABLES Final Re sult Performing Organization Address [facility] de Phone Number [facility] [address] [place] [address]. [address] * Hepatitis B Core Antibody (10/17/2025 10:18 AM EST) Hep B Core Total Ab Nonreactive Nonreactive 10/17/2025 12:17 PM EST [facility] Comment:Health Department no tified in accordance with reportable infectious disease guidelines. Serum 10/17/2025 10:1 8 AM EST 10/17/2025 10:46 AM EST Narrative [facility] - 10/17/2025 12:17 PM EST A nonreactive final interpretation indicates that anti-HBc antibodies were not detected in the sample; it is possible that the individual is not infected with HBV. [facility] BLOOD ORDERABLES Final Re sult Performing Organization Address City/[facility]/ZIP Co de Phone Number [facility] [address] * Hepatitis C Antibody (10/17/2025 10:18 AM EST) Pathologist [facility] HCV Ab Nonreactive Nonreactive 10/17/2025 12:25 PM EST [facility] Comment:Health Department no tified in accordance with reportable infectious disease guidelines. Serum 10/17/2025 10:1 8 AM EST 10/17/2025 10:46 AM EST Narrative [facility] - 10/17/2025 12:25 PM EST Antibodies to HCV not detected; does not exclude the possibility of exposure to HCV. [facility] BLOOD ORDERABLES Final Re sult Performing Organization Address [facility] Co de Phone Number [facility] [address] * (ABNORMAL) Jose-Mims Virus VCA IgG Ab (10/17/2025 10:18 AM EST) Pathologist [facility] EBV VCA IgG Positive( A) Negative 10/17/2025 12:18 PM EST [facility] Comment:Presence of detectab le VCA IgG antibodies. A positive result indicates current or past exposure to Jose-Mims virus. EBV IGG NUM >750.00(H ) 0.00 - 17.99 U/mL 10/17/2025 12:18 PM EST [facility] Serum 10/17/2025 10:1 8 AM EST 10/17/2025 10:46 AM EST Kassi INTERIANO LAB BLOOD ORDERABLES Final Re sult Performing Organization Address City/[facility]/ZIP Co de Phone Number [facility] [address] * Vitamin D 25 Hydroxy (10/17/2025 10:18 AM EST) Pathologist [facility] Vit D, 25-Hydroxy 39.3 30.0 - 100.0 ng/mL 10/17/2025 12:15 PM EST [facility] Comment: Vitamin D deficiency has been defined by the [place] of Medicine (IOM) and an Endocrine Society [...] sult Performing Organization Address [facility] Co de Phone Number [facility] [address] * Toxoplasma gondii Antibody, IgG (10/17/2025 10:18 AM EST) Only the most recent of2 resultswithin the time period is included. Toxoplasma Gondii IgG <3.0 0.0 - 7.1 IU/mL 10/18/2025 4:54 AM EST [facility] Comment: Negative <7.2 Equivocal 7.2 - 8.7 Positive >8.7 Serum 10/17/2025 10:1 8 AM EST 10/18/2025 5:06 AM EST Narrative [facility] - 10/18/2025 5:06 AM EST PERFORMED AT: [facility] [id number] LINUX SYSTEM ADMIN: Mateo Miller, PhD PHONE: [phone] Kassi INTERIANO LAB BLOOD ORDERABLES Final Re sult Performing Organization Address [facility] Co de Phone Number [facility] [address] * HIV 1+2 Antibody/Antigen with Reflex (10/17/2025 10:18 AM EST) HIV 1+2 AB/AGN Nonreactive Nonreactive 10/17/2025 12:16 PM EST [facility] Serum 10/17/2025 10:1 8 AM EST 10/17/2025 10:46 AM EST [facility] - 10/17/2025 12:16 PM EST \HIVRNR Kassi INTERIANO LAB BLOOD ORDERABLES Final Re sult [facility] [address] [facility]. [address] * (ABNORMAL) Hepatitis B Surface Antibody, Quantitati (10/17/2025 10:18 AM EST) Hep B S Ab Reactive( A) Nonreactive 10/17/2025 12:29 PM EST [facility] HBSAB NUMBER 260.00(H) 0.00 - 7.99 mIU/mL 10/17/2025 12:29 PM EST [facility] Serum 10/17/2025 10:1 8 AM EST 10/17/2025 10:46 AM EST [facility] - 10/17/2025 12:29 PM EST Individual is considered immune to HBV infection. Kassi INTERIANO LAB BLOOD ORDERABLES Final Re sult Performing Organization Address City/[facility]/ZIP Co de Phone Number [facility] [address] [place] [address]. [address] * Hepatitis B surface antigen (10/17/2025 10:18 AM EST) Hep B Surface Ag Nonreactive Nonreactive 10/17/2025 12:21 PM EST [facility] Comment:Health Department no tified in accordance with reportable infectious disease guidelines. Serum 10/17/2025 10:1 8 AM EST 10/17/2025 10:46 AM EST [facility] - 10/17/2025 12:21 PM EST Specimen is considered negative for HBsAg. Kassi INTERIANO LAB BLOOD ORDERABLES Final Re sult [facility] [address] [facility]. [address] * Hemoglobin A1C (10/17/2025 10:18 AM EST) Only the most recent of2 resultswithin the time period is included. Hemoglobin A1C 4.0 4.0 - 5.6 % 10/17/2025 1:42 PM EST [facility] Comment: Hemoglobin A1c Interpretation Guidelines: [...] sult Performing Organization Address [facility] Co de Phone Number [facility] [address] [facility]. [address] * Urine culture (09/24/2025 2:11 PM EST) Culture Result No Growth [facility] Midstream Urine URINE SPECIMEN / Unknown 09/24/2025 2:11 PM EST 09/24/2025 3:25 PM EST Nigel Reaves MD MICROBIOLOGY - GENERAL ORDERABLE S Final Result Performing Organization Address City/[facility]/ZIP Co de Phone Number [facility] [address] * (ABNORMAL) MMR(IgG) Panel (Measles, Mumps, Rubella) (09/10/2025 5:03 PM EDT) Mumps IgG Positive 09/10/2025 11:51 PM EDT [facility] MUMPS IGG NUM >300.00(H) 0.0 - 8.9 U/mL 09/10/2025 11:51 PM EDT [facility] Rubella IgG Scr Positive 09/10/2025 11:51 PM EDT [facility] RUB NUM 30.20(H) 0.0 - 0.8 INDEX 09/10/2025 11:51 PM EDT [facility] Rubeola Ab, IgG Positive 09/10/2025 11:50 PM EDT [facility] RUB IGG NUM >300.00(H) 0.00 - 13.40 U/mL 09/10/2025 11:50 PM EDT [facility] Serum 09/10/2025 5:03 PM EDT 09/10/2025 10:26 PM EDT Narrative [facility] - 09/10/2025 11:51 PM EDT [...] MD LAB BLOOD ORDERABLES Final Resu lt [facility] [address] * Syphilis Screening (Trepia) (09/10/2025 5:03 PM EDT) Treponema Pallidum Negative Negative 09/10/2025 11:55 PM EDT [facility] Comment: No serological evidence of infection with Treponema pallidum (incubating or early primary syphilis cannot be excluded). Serum 09/10/2025 5:03 PM EDT 09/10/2025 10:26 PM EDT Navi Sims MD LAB BLOOD ORDERABLES Final Resu lt [facility] [address] * QuantiFERON TB2 Ag (09/10/2025 5:03 PM EDT) QuantiFERON TB2 Ag Value 0.09 09/12/2025 1:19 PM EDT [facility] Plasma 09/10/2025 5:03 PM EDT 09/10/2025 6:29 PM EDT us Navi Sims MD LAB BLOOD ORDERABLES Final Resu lt Performing Organization Address [facility]/ZIP Co de Phone Number [facility] [address] * QuantiFERON TB1 Ag (09/10/2025 5:03 PM EDT) QuantiFERON TB1 Ag Value 0.08 09/12/2025 1:19 PM EDT [facility] Plasma 09/10/2025 5:03 PM EDT 09/10/2025 6:29 PM EDT us Navi Sims MD LAB BLOOD ORDERABLES Final Resu lt [facility] [address] * QuantiFERON Nil (09/10/2025 5:03 PM EDT) QuantiFERON Nil 0.02 1:19 PM EDT [facility] Plasma 09/10/2025 5:03 PM EDT 09/10/2025 6:29 PM EDT us Navi Sims MD LAB BLOOD ORDERABLES Final Resu lt [facility] [address] [place] [id number] * QuantiFERON Mitogen (09/10/2025 5:03 PM EDT) QuantiFERON Interpretation Negative Negative 09/12/2025 1:19 PM EDT [facility] Comment:Negative result pilar cates M. tuberculosis infection is NOT likely. Negative results do not preclude tuberculosis infection (especially in immunosuppressed patients). Negative results have a TB antigen minus Nil value less than 0.35 IU/mL. In cases with high suspicion of disease, retesting or additional testing with medical evaluation may be useful. QuantiFERON Mitogen 8.77 09/12 1:19 PM EDT [facility] Plasma 09/10/2025 5:03 PM EDT 09/10/2025 6:29 PM EDT Narrative [facility] - 09/12/2025 1:19 PM EDT [...] MD LAB BLOOD ORDERABLES Final Resu lt [facility] [address] [facility] [place] [address], [facility] * (ABNORMAL) Strongyloides Ab (09/10/2025 5:03 PM EDT) Strongyloides Ab Positive( A) Negative 09/17/2025 2:56 PM EST [facility] Serum 09/10/2025 5:03 PM EDT 09/17/2025 3:07 PM EST Narrative [facility] - 09/17/2025 3:07 PM EST PERFORMED AT: [facility] [place] [id number] [place], [place] [id number] LINUX SYSTEM ADMIN: Kevin Holguin MD PHONE: [phone] Navi Sims MD LAB BLOOD ORDERABLES Final Resu lt Performing Organization Address [facility] Co de Phone Number [facility] [address] [facility]. [address] * AFP tumor marker (09/10/2025 5:03 PM EDT) [facility] AFP-Tumor Marker 2.0 0.0 - 9.0 ng/mL 09/10/2025 8:52 PM EDT [facility] Serum 09/10/2025 5:03 PM EDT 09/10/2025 6:42 PM EDT Narrative [facility] - 09/10/2025 8:52 PM EDT The testing method for AFP is a chemiluminescent immunoassay manufactured by [employer] Concentrations of AFP obtained by different assay methods or kits may vary and cannot be used interchangeably. AFP results cannot be interpreted as absolute evidence of the presence or absence of malignant disease. Buddy Zimmerman MD LAB BLOOD ORDERABLES Final Resul t Performing Organization Address [facility] Co de Phone Number [facility] [address] * (ABNORMAL) Varicella zoster antibody, IgG (09/10/2025 5:03 PM EDT) Pathologist [facility] Varicella IgG Positive( A) Negative S/CO 09/10/2025 11:49 PM EDT [facility] Comment:Result indicates the presence of detectable VZV IgG antibodies. A positive result is generally indicative of exposure to the pathogen or administration of specific immunoglobulins, but it is no indication of active infection or stage of disease. This test is not approved for determining vaccine-induced immunity to varicella zoster virus. VZV NUM 15.50(H) 0.00 - 0.99 S/CO 09/10/2025 11:49 PM EDT [facility] Serum 09/10/2025 5:03 PM EDT 09/10/2025 10:26 PM EDT us Navi Sims MD LAB BLOOD ORDERABLES Final Resu lt Performing Organization Address City/[facility]/ZIP Co de Phone Number [facility] [address] [facility]. [address] * TSH (Thyroid Stimulating Hormone) (09/10/2025 5:03 PM EDT) TSH 2.85 0.45 - 4.12 uIU/mL 09/11/2025 12:13 AM EDT [facility] Serum 09/10/2025 5:03 PM EDT 09/10/2025 6:42 PM EDT us Buddy Zimmerman MD LAB BLOOD ORDERABLES Final Resul t Performing Organization Address [facility] Co de Phone Number [facility] [address] [facility]. [address] * (ABNORMAL) Lipid Profile (09/10/2025 5:03 PM EDT) Non-HDL Cholesterol, Calculated 109 0 - 129 mg/dL 09/10/2025 8:21 PM EDT [facility] Comment: Desirable: < 130 mg/dL Above Desirable: 130-159 mg/dL Borderline High: 160-189 mg/dL High: 190-219 mg/dL Very High: > 219 mg/dL Cholesterol, Total 135 0 - 200 mg/dL 09/10/2025 8:21 PM EDT [facility] Triglycerides 60 10 - 149 mg/dL 09/10/2025 8:21 PM EDT [facility] HDL 26(L) 60 - 92 mg/dL 09/10/2025 8:21 PM EDT [facility] Comment: LIPID PROFILE INTERPRETATION CHOLESTEROL,TOTAL(mg/dL) [...] LDL Cholesterol 97 mg/dL 8:21 PM EDT [facility] Plasma 09/10/2025 5:03 PM EDT 09/10/2025 5:52 PM EDT Narrative [facility] - 09/10/2025 8:21 PM EDT Must the patient be fasting for this test?->No LDL cholesterol calculated using the Friedewald equation. us Buddy Zimmerman MD LAB BLOOD ORDERABLES Final Resul t Performing Organization Address City/[facility] Co de Phone Number [facility] [address] * ECG 12-Lead (MUSE) (09/10/2025 12:14 PM EDT) 09/10/2025 12:1 4 PM EDT Narrative MUSE - 09/10/2025 3:28 PM EDT Ventricular Rate: 64 BPM Atrial Rate: 64 BPM P-R Interval: 190 ms QRS Duration: 84 ms QT: 464 ms QTc: 478 ms P [place]: 27 degrees R [place]: 58 degrees T [place]: 22 degrees Diagnosis Line: NORMAL SINUS RHYTHM ^ NORMAL ECG ^ No previous ECGs available ^ Confirmed by MD TIP, [facility] ([id number]) on 09/10/2025 3:28:36 PM [...] within the right upper lobe with downstream [id number] within the paramedian right upper lobe apex. [...] 09/12/2025 9:07 AM EDT Nigel Reaves MD [facility] CT ORDERABLES Final Result * CT Abdomen [...] performed here. us Provider Not In System [facility] US ORDERABLES Final R esult from Last 3 Months Insurance [employer] TRANSPLANT GLOBAL Member Subscriber Plan / Payer (Ef fective 2025-2025) Name:David Serrano Relation to Subscriber:Self Name:Kiesha David Payer ID:[id number] Group ID:Not on file Type:Transplant Address: [address] [place] [id number] Advance Directives For more information, please contact: [phone] Documents on File Type Date Recorded Patient Medical Laboratory Scientist Elvira morrison Living Will Testament - scan 10/23/2025 Durable Power of Resource Analyst - scan 10/23/2025 * Full Code (Latest Code Status on File) Date Activated Date Inactivated Comments 10/17/2025 9:46 AM 10/22/2025 9:30 PM Care Teams Tool And Die Machinist Relationship Specialty Start Date End Date Dr. Chris Medel MD [address] [place] [address] PCP - General Primary Care 10/25/25
--- OUTSIDE RECORDS SUMMARY | 2025-11-12 07:19 | XMS_ITS | Encounter Summary ---
Author Organization [facility] Address [address] [place] [address] Care Team Providers Care Datapower Consultant Name Role Phone System, Provider Not [...] release of HIV test results or diagnoses. [id number] Health Encounter Details Date Type Department Care Team (Late st Contact Info) Description 10/17/2025 Telephone [facility] Liver Transplant at [address] [address] Joslyn Faulkner, RN Social History [...] the past 12 months has th e [employer], gas, oil, or water company threatened to [...] [] No Pt instructed for admission Location: [facility] Estimated arrival time: 10/17 @ [...] Notifications: Department Phone Comments Time/Name Capacity Management [phone] Notified of patient's pending TXP ORGANS:Liver Time: Spoke to: n/a OR [phone] OR scheduled for: per Dr. Drew Recipient in the OR time 10/17 @ 1200 Acute donor Risk (according to OPTN policy)No (HCV, HBV, HIV, COVID) Notified Donor is DBD Time:29 spoke to Carlos OR mandolin repair person: Blanca Cooper CREATED ORGAN Time: 26 BLOOD BANK [phone] For Liver and Heart only 33 spoke juve Fernández Nursing Ship[place] [phone] For delayed call in 26 spoke with Abby PACU or [facility] [phone] Delayed call in: If recipient OR is 2 hrs or less from admission, call PACU/[facility] (basedon where nursing supervisor component assembler assigns patient) 0730-spoke with Tejas Abdominal Transplant 8CCP [phone] Transfer of care reported for abdominal txp Notified of dialysis type and last session if applicable Time: 36 8CCP mandolin repair person: Vasquez SICU [phone] Notify about abdominal txp admissions Time:37 SICU mandolin repair person:Marisela Transplant Surgery Resident/PA QGenda Time: 809 Spoke to: Erikan Transplant Surgery Fellow QGenda Time: 29 Spoke to: Dr Haley Transplant Research Team [phone] Time: 809 Spoke to: [facility] [phone] Liver Only Contact pharmacy to alert that HBIG will be needed when all the following are present: Donor: *HBsAg negative *HBV DNA/NII negative Recipient: *HBsAg positive *HBV DNA is detectable on most recent check Time: Spoke to: N/A Email notification to Transplant Team(s) and OR mandolin repair person. [Send the following information below to the [...] Venoveno bypass: no Donor info: Donor ID: [id number] Match ID: [id number] Anti-HBc: Negative HBV NII: Negative HBsAg: Negative [...] documented as of this encounter Care Teams Datapower Consultant Relationship Specialty Start Date End Date System, Provider Not In PCP - General 09/10/25 10/24/25 documented as of this encounter
--- OUTSIDE RECORDS SUMMARY | 2025-11-12 07:19 | XMS_ITS | Encounter Summary ---
Author Organization Healthcare Address [address] [place] [address] Care Team Providers Care Equipment Operat0R Name Role Phone Ruma Hernández LABELING MACHINE OPERATOR Unavailable [phone] Chris Medel MD Primary Care Provider [phone] Encounter Details Date Type Department Care Team (Late st Contact Info) Description 10/08/2025 Orders Only [facility] Medicine Specialties [address] [place] [id number] Provider, [place] [address] [address] [place] [id number] Social History Tobacco Use Types Packs/Day Years [...] [facility] or hoahaoism services? More than 4 times per year 02/19/2025 Do you belong to any clubs o r organizations such as druze groups, unions, [employer] Mediaternal or athletic groups, or school groups? Yes [...] and heating? Not hard at all 06/15/2025 [facility] - Occupational Stress Questionnaire [...] drink first t luisa in the morning (EYE-MUSIC CRITIC) to steady your nerves or to get rid of a hangover? 0 06/14/2025 CAGE Questionnaire Score 0 025 Utilities Answer Date Recorded In the past 12 months has th e [employer], gas, oil, or water [employer] threatened to shut off services in [...] [address] [facility], [address] [place] [address] Suhail Brock MD [address] [facility] [address] [place] [address] 01/24/2026 4:40 PM EDT Office Visit [facility] [address] [facility], [address] [place] [address] Moustapha Katz MD [address] [facility] [address] [place] [address] documented as of this encounter Procedures Procedure Name Priority Date/Time Associated Diagnosis Comments COMPLETE METABOLIC PROFILE (CMP) Routine 10/08/2025 10:14 AM EST APTT Routine 10/08/2025 10:14 AM EST PROTHROMBIN TIME(PT) / INR Routine 10/08/2025 10:14 AM EST CBC WITH AUTO DIFFERENTIAL Routine 10/08/2025 10:14 AM EST documented in this encounter Results * COMPLETE METABOLIC PROFILE (CMP) (10/08/2025 10:14 AM EST) [facility] Provider LAB BLOOD ORDERABLES Final R esult * Prothrombin Time/INR (10/08/2025 10:14 AM EST) Blood Venous blood specimen / Unknown Result [facility] Provider LAB BLOOD ORDERABLES Final R esult * APTT (10/08/2025 10:14 AM EST) Blood Venous blood specimen / Unknown Result [facility] Provider LAB BLOOD ORDERABLES Final R esult * CBC and Differential (10/08/2025 10:14 AM EST) Blood Venous blood specimen / Unknown Result [facility] Provider LAB BLOOD ORDERABLES Final R [...] documented as of this encounter Care Teams Equipment Operat0R Relationship Specialty [place] [address] PCP - General 03/14/25 Ruma Hernández APRN [address] [address] Referring Physician Gastroenterology 07/30/23 documented as of this encounter
--- OUTSIDE RECORDS SUMMARY | 2025-11-12 07:19 | XMS_ITS | Encounter Summary ---
Author Organization Healthcare Address [address] [place] [address] Care Team Providers Care Photovoltaic Installer Name Role Phone Ruma Hernández GOVERNMENT AUDITOR Unavailable [phone] Chris Medel MD Primary Care Provider [phone] Reason for Visit * Reason Comments Med Refill Encounter Details Date Type Department Care Team (Late st Contact Info) Description 10/02/2025 [facility] [address] [place] [address] Portia Maguire MD [address] [place] [address] Pre-liver transplant, listed (Primary Dx); [...] r organizations such as religion groups, unions, [place] or athletic groups, or school groups? Yes [...] r organizations such as religion groups, unions, [place] or athletic groups, or school groups? Yes [...] and heating? Not hard at all 06/15/2025 [facility]at ional [facility] - Occupational Stress [...] drink first t luisa in the morning (EYE-CLOTH TEARER) to steady your nerves or to get [...] [facility], [address] [place] [address] Suhail Brock MD [address] [place] [address] 01/24/2026 4:40 PM EDT Office Visit [facility] [address] [facility], [address] [place] [address] Moustapha Katz MD [address] [facility] [address] [place] [address] documented as of this encounter [...] documented as of this encounter Care Teams Photovoltaic Installer Relationship Specialty [place] [address] PCP - General 03/14/25 Ruma Hernández APRN [address] [place] [address] Referring Physician Gastroenterology 07/30/23 documented as of this encounter
--- OUTSIDE RECORDS SUMMARY | 2025-11-12 07:20 | XMS_ITS | Encounter Summary ---
Author Organization [facility] Address [address] [place] [address] Care Team Providers Care Car Repairman Name Role Phone Dr. Chris Medel MD [...] release of HIV test results or diagnoses. [id number] Health Encounter Details Date Type Department Care Team (Late st Contact Info) Description 10/30/2025 Chart Note [facility] Liver Transplant at [address] [place] [phone] Pita Pike [place] FK pending [facility] Social [...] 2.8(A) 3.5 - 5.0 g/dL Blood Result [facility] Provider LAB BLOOD ORDERABLES Nadia l [...] 10^6/ L WBC 10.3 10^3/mL Blood Result [facility] Provider LAB BLOOD ORDERABLES Andia l Result * Hepatic Function Panel (10/29/2025 7:49 AM EST) Bilirubin, Direct 0.7 Bilirubin, Indirect 0.7 Alkaline Phosphatase 319 ALT 138 AST 55 Total Bilirubin 1.4 Total Protein 5.5 Plasma Result [facility] Provider LAB BLOOD ORDERABLES Nadia l [...] as of this encounter Care Teams Car Repairman Relationship Specialty Start Date End Date Dr. Chris Medel MD [address] [place] [address] PCP - General Primary Care 10/25/25 documented as of this encounter
--- OUTSIDE RECORDS SUMMARY | 2025-11-12 07:20 | XMS_ITS | Encounter Summary ---
Author Organization [facility] Address [address] [place] [address] Care Team Providers Care Radio Engineer Name Role Phone Dr. Chris Medel [...] release of HIV test results or diagnoses. [id number] Health Encounter Details Date Type Department Care Team (Latest Contact Info) Description 11/02/2025 Travel Social History Tobacco Use Types Packs/Day [...] living in a prison (including now)? No 11/02/2025 Utilities Answer Date [...] Assessment Author Have you been in contact with someone who was sick? No / Unsure 11/02/2025 6:[address] maicol Carrera RN Do you have any of the following new or worsening symptoms? None of these 11/02/2025 6:24 PM EST Myles Albarran RN * Travel Screening Question Answer Date of Assessment Author Have you traveled internatio sam or domestically in the last month? No 11/02/2025 6:24 PM EST Myles Hinson, RN documented as of this encounter Plan [...] documented as of this encounter Care Teams Radio Engineer Relationship Specialty Start Date End Date Dr. Chris Medel MD [address] [place] [address] PCP - General Primary Care 10/25/25 documented as of this encounter
--- OUTSIDE RECORDS SUMMARY | 2025-11-12 07:20 | XMS_ITS | Clinical Summary ---
Author Organization [facility] Address [address] [place] [address] Care Team Providers Care Fagot Heater Helper Name Role Phone ToniUrban morataya DO Primary Care Provider [phone] Allergies Active Allergy Reactions Criticality Noted Date [...] Recently Relevant to Health Maintenance Insurance [facility] PPO Care Teams Fagot Heater Helper Relationship Specialty Start Date End Date Urban Brantley DO [address] [place], [place] [id number] PCP - General Internal Medicine 03/22/23
--- OUTSIDE RECORDS SUMMARY | 2025-11-12 07:20 | XMS_ITS | Encounter Summary ---
Author Organization [facility] Address [address] [place] [address] Care Team Providers Care Structures Assembler Name Role Phone Dr. Chris Medel MD [...] release of HIV test results or diagnoses. [id number] Health Encounter Details Date Type Department Care Team (Late st Contact Info) Description 10/30/[address] [facility] Kidney Transplant at [address] [phone] Oskar Arango, FLEX Social History Tobacco Use [...] money to buy more. Never true 11/02/20 Within the past 12 months, t he [...] in a group home (including now)? No 11/02/2025 Utilities Answer Date [...] documented as of this encounter Care Teams Structures Assembler Relationship Specialty Start Date End Date Dr. Chris Medel MD 809 [employer] [facility] [facility] [place] [address] PCP - General Primary Care 10/25/25 documented as of this encounter
--- OUTSIDE RECORDS SUMMARY | 2025-11-12 07:20 | XMS_ITS | Encounter Summary ---
Author Organization [facility] Address [address] [place] [address] Care Team Providers Care Bottling Attendant Name Role Phone Dr. Chris Medel [...] release of HIV test results or diagnoses. [id number] Reason for Visit * Reason Comments Results Encounter Details Date Type Department Care Team ([facility] Contact Info) Description 10/31/2025 Telephone [facility] Liver Transplant at [address] [address] Ruma Benjamin, SILVIO Results Social [...] in a skilled nursing (including now)? No 11/02/2025 Utilities Answer Date [...] documented as of this encounter Care Teams Bottling Attendant Relationship Specialty Start Date End Date Dr. Chris Medel MD [address] [place] [address] PCP - General Primary Care 10/25/25 documented as of this encounter
--- OUTSIDE RECORDS SUMMARY | 2025-11-12 07:20 | XMS_ITS | Encounter Summary ---
Author Organization [facility] Address [address] [place] [address] Care Team Providers Care Software Performance Engineer Name Role Phone Dr. Chris Medel [...] release of HIV test results or diagnoses. [id number] Reason for Visit * Reason Comments After Hours Call Encounter Details Date Type Department Care Team ([facility] Contact Info) Description 11/02/2025 Telephone [facility] PATIENT SERVICES [address] [place] [address] Unknown, Attending Provider After Hours Call Social History Tobacco Use Types Packs/Day Years [...] living in a longterm (including now)? No 11/02/2025 Utilities Answer Date [...] encounter Miscellaneous Notes * Telephone Encounter - Irvingeduardo Bell - 11/02/2025 10:24 PM EST Specialty: LIVER TXP Patient Name: David Pop Patient Date of : 1960 Relationship of Caller to Patient and Callback: [phone] Patient of: DR WINKLER Nature of Call: CRITICAL LAB Chief Media Officer Provider Contacted: Rosangela Lewis Time and Method of Contact: 10:27PM Advise Caller: If provider does not call back within 30 minutes, please call us back. ROUTE TELEPHONE NOTE - Follow Qgenda and/or Route Directly to Provider. COPY this note into Associated ContentPARKLAND HEALTH CENTERPllop.it chat. documented in this encounter Plan of Treatment [...] as of this encounter Care Teams Software Performance Engineer Relationship Specialty Start Date End Date Dr. Chris Medel MD [address] [place] [address] PCP - General Primary Care 10/25/25 documented as of this encounter
--- OUTSIDE RECORDS SUMMARY | 2025-11-12 07:20 | XMS_ITS | Encounter Summary ---
Author Organization [facility] Address [address] [place] [address] Care Team Providers Care Weather Anchor Name Role Phone Dr. Chris Medel MD [...] release of HIV test results or diagnoses. [id number] Health Encounter Details Date Type Department Care Team (Late st Contact Info) Description 11/03/2025 Chart Note [facility] Liver Transplant at [address] [place] [phone] Rosangela Lewis RN Received a call from the hot billet shear operator regarding critical hemoglobin. Pt is Social History Tobacco Use Types Packs/Day Years [...] Progress Notes * Rosangela Lewis RN - 11/03/2025 1:39 AM EST Received a call from the hot billet shear operator regarding critical hemoglobin. Pt is currently admitted on 8ccp. I was connected to [facility] lab, lab reports they just talked to the inpatient team about this and the team is handling this. documented in this encounter Plan of Treatment [...] documented as of this encounter Care Teams Weather Anchor Relationship Specialty Start Date End Date Dr. Chris Medel MD [address] [place] [address] PCP - General Primary Care 10/25/25 documented as of this encounter
--- OUTSIDE RECORDS SUMMARY | 2025-11-12 07:20 | XMS_ITS | Encounter Summary ---
Author Organization [facility] Address [address] [place] [address] Care Team Providers Care Grid Caster Name Role Phone Dr. Chris Medel MD [...] release of HIV test results or diagnoses. [id number] Health Encounter Details Date Type Department Care Team (Late st Contact Info) Description 10/30/2025 Social Work [facility] Liver Transplant at [address] [place] [phone] Michelle Ho, CAR ATTENDANT, MUSICIAN INSTRUMENTAL Social History Tobacco Use Types Packs/Day Years [...] this encounter Progress Notes * MADHAV Arias, MUSICIAN INSTRUMENTAL - 10/30/2025 10:29 AM EST Social Work [...] reports that they have not yet received [facility] services. OSCAR to call [facility] ([phone]) to obtain a status update. Hope Stone given on this date. No additional SW needs identified at this time. SW will continue to follow. MADHAV Arias, MUSICIAN INSTRUMENTAL [phone] documented in this encounter Plan of Treatment Not on file documented as of this encounter Visit Diagnoses Not on filedocumented in this encounter Additional Health Concerns Assessment Noted Time PHQ-9 Depression Total Score: 8 09/10/20 11:09 AM EDT documented as of this encounter Care Teams Grid Caster Relationship Specialty Start Date End Date Dr. Chris Medel MD [address] [facility] [address] PCP - General Primary Care 10/25/25 documented as of this encounter
--- OUTSIDE RECORDS SUMMARY | 2025-11-12 07:20 | XMS_ITS | Encounter Summary ---
Author Organization [facility] Address [address] [place] [address] Care Team Providers Care Digital Media Planner Name Role Phone Dr. Chris Medel MD [...] release of HIV test results or diagnoses. [id number] Health Encounter Details Date Type Department Care Team (Late st Contact Info) Description 11/06/2025 Orders Only [facility] [address] [place] [address] Lore Nevarez, SUBSTITUTE TEACHER [address] [place] [address] Presence of pancreatic duct stent (Primary Dx) Social History Tobacco Use Types [...] living in a half-way (including now)? No 11/02/2025 Utilities Answer Date [...] Type Priority Associated Diagnoses Orde r Schedule X-ray Abdomen AP view Imaging Routine Presence of pancreatic duct stent 1 Occurrences starting 11/06/2025 until 05/21/2026 documented as of this encounter Visit Diagnoses Diagnosis Presence of pancreatic duct stent- Primary documented in this encounter Additional Health Concerns Assessment Noted Time PHQ-9 Depression Total Score: 8 09/10/20 25 11:09 AM EDT documented as of this encounter Care Teams Digital Media Planner Relationship Specialty Start Date End Date Dr. Chris Medel MD 809 [facility] [address] [place] [address] PCP - General Primary Care 10/25/25 documented as of this encounter
--- OUTSIDE RECORDS SUMMARY | 2025-11-12 07:21 | XMS_ITS | Encounter Summary ---
Author Organization [facility] Address [address] [place] [address] Care Team Providers Care Tennis Court Attendant Name Role Phone Dr. Chris Medel [...] release of HIV test results or diagnoses. [id number] Health Encounter Details Date Type Department Care Team (Late st Contact Info) Description 11/08/2025 Results Follow-Up [facility] [address]C [address] [place] [address] Nathalie Cohen MD [address] [place], [place] [id number] CBC, CBC, CBC Social History Tobacco Use Types Packs/Day Years [...] documented as of this encounter Care Teams Tennis Court Attendant Relationship Specialty Start Date End Date Dr. Chris Medel MD 809 [facility] [place] [address] PCP - General Primary Care 10/25/25 documented as of this encounter
--- OUTSIDE RECORDS SUMMARY | 2025-11-12 07:22 | XMS_ITS | Encounter Summary ---
Author Organization [facility] Address [address] [place] [address] Care Team Providers Care Mud Engineer Name Role Phone System, Provider Not [...] release of HIV test results or diagnoses. [id number] Health Encounter Details Date Type Department Care Team (Late st Contact Info) Description 10/18/2025 Chart Note [facility] [place] Kidney Transplant at [address] [phone] Ailin Wells Txp Patient Called In Social [...] Txp Date:10/17/2025 Organ: Liver Primary Ins: Jayy [facility] Plant Operator: Serena Carter ext [phone] Txp Auth:[id number] Dates:09/24/2025-09/23/2026 Admit Auth: IV to obtain RX:Jayy documented in this encounter Plan of Treatment Not on file documented as of this encounter Visit Diagnoses Not on filedocumented in this encounter Additional Health Concerns Assessment Noted Time PHQ-9 Depression Total Score: 8 10/27/20 25 11:09 AM EDT documented as of this encounter Care Teams Mud Engineer Relationship Specialty Start Date End Date System, Provider Not In PCP - General 09/10/25 10/24/25 documented as of this encounter
--- OUTSIDE RECORDS SUMMARY | 2025-11-12 07:22 | XMS_ITS | Encounter Summary ---
Author Organization [facility] Address [address] [place] [address] Care Team Providers Care Coding Support Specialist Name Role Phone System, Provider Not [...] release of HIV test results or diagnoses. [id number] Health Encounter Details Date Type Department Care Team (Late st Contact Info) Description 09/21/2025 Refill [facility] at [facility] [address] [place] [phone] Arturo Gibson, RN Social History Tobacco Use [...] documented as of this encounter Care Teams Coding Support Specialist Relationship Specialty Start Date End Date System, Provider Not In PCP - General 09/10/25 10/24/25 documented as of this encounter
--- OUTSIDE RECORDS SUMMARY | 2025-11-12 07:22 | XMS_ITS | Encounter Summary ---
Author Organization [facility] Address [address] [place] [address] Care Team Providers Care Hollow Handle Knife Assembler Name Role Phone System, Provider Not [...] release of HIV test results or diagnoses. [id number] Health Encounter Details Date Type Department Care Team (Late st Contact Info) Description 10/22/[address] [facility] Liver Transplant at [address] [phone] Felice Nugent III, MD [address] [place] [phone] Liver replaced by transplant ([facility]) (Primary Dx); Immunosuppressive management encounter following liver transplant ([facility]) Social History Tobacco Use Types Packs/Day Years [...] living in a fci (including now)? No 11/02/2025 Utilities Answer Date [...] documented as of this encounter Care Teams Hollow Handle Knife Assembler Relationship Specialty Start Date End Date System, Provider Not In PCP - General 09/10/25 10/24/25 Dr. Chris Medel MD [address] [place] [address] PCP - General Primary Care 10/25/25 documented as of this encounter
--- OUTSIDE RECORDS SUMMARY | 2025-11-12 07:22 | XMS_ITS | Encounter Summary ---
Author Organization [facility] Address [address] [place] [address] Care Team Providers Care Adolescent Specialist Name Role Phone Dr. Chris Medel MD [...] release of HIV test results or diagnoses. 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 Ordered for 11/20/25. Called Central Scheduling confirmed it can be done on a walk in basis. Called and spoke with Stacy and he just took both Bactrim and Mepron already for today, discussed going forward to just take the Mepron. Bactrim removed from med list. Discussed the ABD x-ray on 11/20/25, ground floor radiology, walk in status. Questions regarding BP: 11/08/25 after getting home was 155/95 but this AM was 143/86, will continue to monitor but feel it was just all the hustle and bustle of discharging and driving home. Additionally Stacy stated in the hospital because of the steroids the insulin regimen was 5 units with mealsPlus sliding scale. PM BS 222, FBS today 129. Reviewed with the team and will continue with Slidingscale only with reassessment in clinic on 11/13/25. documented in this encounter Plan of Treatment Scheduled Orders Name Type Priority Associated Diagnoses Orde r Schedule X-ray Portable Abdomen AP view Imaging Routine Liver replaced by transplant (CMS-HCC) Acute rejection of liver transplant (CMS-HCC) Expected: 11/20/2025, Expires: 02/18/2026 X-ray Pelvis 1 or 2-views Imaging Routine Liver replaced by transplant (CMS-HCC) Acute rejection of liver transplant (CMS-HCC) Expected: 11/20/2025, Expires: 02/18/2026 documented as of this encounter Procedures Procedure Name Priority Date/Time Associated Diagnosis Comments HOX - HLA ANTIBODY REPORT Routine 11/09/2025 10:38 AM EST documented in this encounter Results * Hox - HLA Antibody Report (11/09/2025 10:38 AM EST) 11/09/2025 10:3 8 AM EST Felice Nugent III, MD LAB BLOOD ORDERABLE S Final Result [facility] [address] [place] [address] documented in this encounter Visit Diagnoses Diagnosis Liver replaced by transplant (CMS-HCC)- Primary Liver replaced by transplant Acute rejection of liver transplant (CMS-HCC) Complications of transplanted liver documented in this encounter Additional Health Concerns Assessment Noted Time PHQ-9 Depression Total Score: 8 09/10/20 25 11:09 AM EDT documented as of this encounter Care Teams Adolescent Specialist Relationship Specialty Start Date End Date Dr. Chris Medel MD [address] [place] [address] [place] [address] PCP - General Primary Care 10/25/25 documented as of this encounter
--- OUTSIDE RECORDS SUMMARY | 2025-11-12 07:22 | XMS_ITS | Encounter Summary ---
Author Organization [facility] Address [address] [place] [address] Care Team Providers Care Spinning Frame Fixer Name Role Phone System, Provider Not In [...] release of HIV test results or diagnoses. [id number] Health Encounter Details Date Type Department Care Team (Late st Contact Info) Description 09/24/2025 Orders [address] [facility] Liver Transplant at [address] [address] Chapito Alcantar, SILVIO Alcoholic cirrhosis of liver [...] - 15.1 seconds 09/24/2025 3:06 PM EST [facility] INR 1.9(H) 0.9 - 1.1 09/24/2025 3:06 PM EST [facility] Comment: RECOMMENDED THERAPEUTIC RANGES USING INR : Stable oral anticoagulant therapy: 2.0 - 3.0 Mechanical prosthetic heart valve: 2.5 - 3.5 Recurrent acute myocardial infarction: 2.5 - 3.5 Plasma 09/24/2025 2:11 PM EST 09/24/2025 2:43 PM EST Nigel Reaves MD LAB BLOOD ORDERABLES Final Resul t [facility] [address] * (ABNORMAL) Renal Function Panel w/EGFR (09/24/2025 2:11 PM EST) Pathologist [facility] Sodium 137 133 - 146 mmol/L 09/24/2025 6:36 PM EST [facility] Potassium 3.9 3.5 - 5.3 mmol/L 09/24/2025 6:36 PM EST [facility] Chloride 104 98 - 110 mmol/L 09/24/2025 6:36 PM EST [facility] CO2 29 21 - 33 mmol/L 09/24/2025 6:36 PM EST [facility] Comment:High lactate dehydro genase concentrations in patient samples may cause falsely increased bicarbonate results. If markedly elevated LDH is observed or suspected, please assess results in conjunction with patient`s clinical presentation. In cases of discrepant results, consider evaluating CO2 in with a blood gas order. Anion Gap 4 3 - 16 mmol/L 09/24/2025 6:36 PM EST [facility] BUN 13 7 - 25 mg/dL 09/24/2025 6:36 PM EST [facility] Creatinine 0.84 0.60 - 1.30 mg/dL 09/24/2025 6:36 PM EST [facility] Glucose 98 70 - 100 mg/dL 09/24/2025 6:36 PM EST [facility] Calcium 8.1(L) 8.6 - 10.3 mg/dL 09/24/2025 6:36 PM EST [facility] Phosphorus 3.5 2.1 - 4.7 mg/dL 09/24/2025 6:36 PM EST [facility] Albumin 2.0(L) 3.5 - 5.7 g/dL 09/24/2025 6:36 PM EST [facility] Osmolality, Calculated 284 278 - 305 mOsm/kg 09/24/2025 6:36 PM EST [facility] EGFR >90 09/24/2025 6:36 PM EST [facility] Comment: As of 2022, the [...] LAB BLOOD ORDERABLES Final Resul t [facility] [address] [place] [address], [facility] * (ABNORMAL) Hepatic Function Panel (09/24/2025 2:11 PM EST) Total Bilirubin 3.4(H) 0.0 - 1.5 mg/dL 09/24/2025 6:36 PM EST [facility] Bilirubin, Direct 1.07(H) 0.00 - 0.40 mg/dL 09/24/2025 6:36 PM EST [facility] AST 37 13 - 39 U/L 09/24/2025 6:36 PM EST [facility] ALT 22 7 - 52 U/L 09/24/2025 6:36 PM EST [facility] Alkaline Phosphatase 142(H) 36 - 125 U/L 09/24/2025 6:36 PM EST [facility] Total Protein 5.8(L) 6.4 - 8.9 g/dL 09/24/2025 6:36 PM EST [facility] Albumin 2.0(L) 3.5 - 5.7 g/dL 09/24/2025 6:36 PM EST [facility] Bilirubin, Indirect 2.33(H) 0.00 - 1.10 mg/dL 09/24/2025 6:36 PM EST [facility] Plasma 09/24/2025 2:11 PM EST 09/24/2025 5:52 PM EST us Nigel Reaves MD LAB BLOOD ORDERABLES Final Resul t [facility] [address] [place] [address], [facility] documented in this encounter Visit Diagnoses Diagnosis Alcoholic cirrhosis of liver with ascites (CMS-HCC)- Primary Pre-transplant evaluation for chronic liver disease documented in this encounter Additional Health Concerns Assessment Noted Time PHQ-9 Depression Total Score: 8 09/10/20 25 11:09 AM EDT documented as of this encounter Care Teams Spinning Frame Fixer Relationship Specialty Start Date End Date System, Provider Not In PCP - General 09/10/25 10/24/25 documented as of this encounter
--- OUTSIDE RECORDS SUMMARY | 2025-11-12 07:22 | XMS_ITS | Encounter Summary ---
Author Organization [facility] Address [address] [place] [address] Care Team Providers Care Cabana Attendant Name Role Phone System, Provider Not [...] release of HIV test results or diagnoses. [id number] Health Encounter Details Date Type Department Care Team (Late st Contact Info) Description 09/24/2025 Chart Note [facility] Kidney Transplant at [address] [phone] Ailin Wells Called local office again to [...] documented as of this encounter Care Teams Cabana Attendant Relationship Specialty Start Date End Date System, Provider Not In PCP - General 09/10/25 10/24/25 documented as of this encounter
--- OUTSIDE RECORDS SUMMARY | 2025-11-12 07:22 | XMS_ITS | Encounter Summary ---
Author Organization [facility] Address [address] [place] [address] Care Team Providers Care Piece Cutter Name Role Phone System, Provider Not [...] release of HIV test results or diagnoses. [id number] Health Encounter Details Date Type Department Care Team (Late st Contact Info) Description 09/20/2025 Telephone [facility] Liver Transplant at [address] [phone] Cori Dover MA Social History Tobacco Use [...] Dover MA - 09/20/2025 10:29 AM EST [facility] called to get patient scheduled for a follow up visit with Dr. Reaves. documented in this encounter Plan of Treatment Not on file documented as of this encounter Visit Diagnoses Not on filedocumented in this encounter Additional Health Concerns Assessment Noted Time PHQ-9 Depression Total Score: 8 09/10/20 11:09 AM EDT documented as of this encounter Care Teams Piece Cutter Relationship Specialty Start Date End Date System, Provider Not In PCP - General 09/10/25 10/24/25 documented as of this encounter
--- OUTSIDE RECORDS SUMMARY | 2025-11-12 07:22 | XMS_ITS | Encounter Summary ---
Author Organization [facility] Address [address] [place] [address] Care Team Providers Care One Piece Expansion Maker Hand Name Role Phone System, Provider Not [...] release of HIV test results or diagnoses. [id number] Reason for Visit * Reason Comments Appointment Encounter Details Date Type Department Care Team (Late st Contact Info) Description 10/03/2025 Telephone [facility] Liver Transplant at [address] [address] Pb Sy, RN Appointment Social History Tobacco [...] Time granted: 1041 Who granted: OPO OPO: [facility] OPO Contact: Recent illnesses [] Yes [...] Notifications: Department Phone Comments Time/Name Capacity Management [phone] Notified of patient's pending TXP ORGANS:LIVER Time:1130 Spoke to:ANASTASIIA HERNANDEZ [phone] OR scheduled for: per Dr. WINKLER Recipient in the OR time 10/03 Acute donor Risk (according to OPTN policy)NO (HCV, HBV, HIV, COVID) Notified Donor is DCD Heart using [employer] N/A Time:113 OR contracting manager:AVANI LUGO ORGAN Time:104 BLOOD BANK [phone] For Liver and Heart only 113 [facility] Nursing Blow Pit Helper [phone] For delayed call in [email or web address] PACU or Sameday [phone] Delayed call in: If recipient OR is 2 hrs or less from admission, call PACU/Sameday (basedon where nursing building cleaning supervisor assigns patient) DELAYED CALL IN Abdominal Transplant 8CCP [phone] Transfer of care reported for abdominal txp Notified of dialysis type and last session if applicable Time:DELAYED CALL IN 8CCP contracting manager: SICU [phone] Notify about abdominal txp admissions Time:1150 SICU contracting manager:SHILOH Transplant Surgery Resident/LAISHA Wyatt PAGED@[phone] Time:1156 Spoke to:DR CHRISTIANSON Transplant Surgery Fellow QKhoa Time:1156 Spoke to:DR RUSSELL Transplant Research Team [phone] LEFT MESSAGE @[phone] Time:1157 Spoke to: If applicable, Dialysis Unit EMR Time:N/A Spoke to: Pharmacy IV Room [phone] Liver Only Contact pharmacy to alert that HBIG will be needed when all the following are present: Donor: *HBsAg negative *HBV DNA/NII negative Recipient: *HBsAg positive *HBV DNA is detectable on most recent check Time:N/A Spoke to: Heart Transplant CVICU [phone] Transfer of care reported for heart txp Time:N/A CVICU contracting manager: Email notification to Transplant Team(s) and OR contracting manager. Received notification for potential Liver transplant for David Pop, 1960. Recipient Info: David Pop 1960 ABO: A CMV: NEGATIVE EBV: POSITIVE HepBsAb: POSITIVE Referring MD: Dr. Portia Maguire. Surgeon: Dr. PETERSON Dai ETA: DELAYED CALL IN OR time and date: 10/03 CRRT needed in OR: NO Venoveno bypass: NO Donor info: Donor ID: [id number] Match ID: [id number] Anti-HBc: Negative HBV NII: Negative HBsAg: Negative [...] documented as of this encounter Care Teams One Piece Expansion Maker Hand Relationship Specialty Start Date End Date System, Provider Not In PCP - General 09/10/25 10/24/25 documented as of this encounter
--- OUTSIDE RECORDS SUMMARY | 2025-11-12 07:22 | XMS_ITS | Encounter Summary ---
Author Organization [facility] Address [address] [place] [address] Care Team Providers Care Store Receiving Specialist Name Role Phone System, Provider Not [...] release of HIV test results or diagnoses. [id number] Health Encounter Details Date Type Department Care Team (Late st Contact Info) Description 10/22/2025 Orders Only Liver Transplant at [address] [address] Ruma Benjamin, SILVIO S/P liver transplant ([facility]) (Primary Dx); Immunosuppression ([facility]) Social History Tobacco Use Types Packs/Day Years [...] Tacrolimus level Lab Routine S/P liver transplant ([facility]) Immunosuppression ([facility]) twice weekly for 120 Occurrences starting 10/22/2025 until 04/22/2027, 1 completed documented as of this encounter Results * Tacrolimus level (10/30/2025 8:07 AM EST) Tacrolimus (LC-MS) 13.0 3.0 - 15.0 ng/mL 10/30/2025 3:02 PM EST [facility] Comment:Performed via liquid chromatography tandem mass spectrometry. Detection limit: 1 ng/mL. Individual target concentrations may vary due to target organ and time after transplant. This test has been developed and its performance characteristics determined by [facility] which is certified under the [...] AM EST 10/30/2025 9:12 AM EST Narrative [facility] - 10/30/2025 3:02 PM EST Standing liver transplant labs. Please fax results to [phone]. Call critical results to [phone]. us Felice Nugent III, MD LAB BLOOD ORDERABLE S Final Result [facility] [address] [place], [place] [address] * (ABNORMAL) Differential (10/30/2025 8:07 AM EST) Neutrophils Relative 79.6 40.0 - 80.0 % 10/30/2025 9:26 AM EST [facility] Lymphocytes Relative 6.3(L) 15.0 - 45.0 % 10/30/2025 9:26 AM EST [facility] Monocytes Relative 9.8 0.0 - 12.0 % 10/30/2025 9:26 AM EST [facility] Eosinophils Relative 3.4 0.0 - 8.0 % 10/30/2025 9:26 AM EST [facility] Basophils Relative 0.9 0.0 - 1.0 % 10/30/2025 9:26 AM EST [facility] nRBC 0 0 - 0 /100 WBC 10/30/2025 9:26 AM EST [facility] Neutrophils Absolute 6,209 1,520 - 8,640 /uL 10/30/2025 9:26 AM EST [facility] Lymphocytes Absolute 491(L) 570 - 4,860 /uL 10/30/2025 9:26 AM EST [facility] Monocytes Absolute 764 0 - 1,296 /uL 10/30/2025 9:26 AM EST [facility] Eosinophils Absolute 265 0 - 864 /uL 10/30/2025 9:26 AM EST [facility] Basophils Absolute 70 0 - 108 /uL 10/30/2025 9:26 AM EST [facility] Whole Blood 10/30/2025 8:07 AM EST 10/30/2025 9:11 AM EST [facility] - 10/30/2025 9:26 AM EST [facility] liver transplant labs. Please fax results to [phone]. Call critical results to [phone]. us Felice Nugent III, MD LAB BLOOD ORDERABLE S Final Result [facility] [address] [place] [address], [facility] * (ABNORMAL) CBC (10/30/2025 8:07 AM EST) WBC 7.8 3.8 - 10.8 10E3/uL 10/30/2025 9:26 AM EST [facility] RBC 2.67(L) 4.20 - 5.80 10E6/uL 10/30/2025 9:26 AM EST [facility] Hemoglobin 10.1(L) 13.2 - 17.1 g/dL 10/30/2025 9:26 AM EST [facility] Hematocrit 27.2(L) 38.5 - 50.0 % 10/30/2025 9:26 AM EST [facility] MCV 101.7(H) 80.0 - 100.0 fL 10/30/2025 9:26 AM EST [facility] MCH 37.8(H) 27.0 - 33.0 pg 10/30/2025 9:26 AM EST [facility] MCHC 37.1(H) 32.0 - 36.0 g/dL 10/30/2025 9:26 AM EST [facility] RDW 17.4(H) 11.0 - 15.0 % 10/30/2025 9:26 AM EST [facility] Platelets 159 140 - 400 10E3/uL 10/30/2025 9:26 AM EST [facility] MPV 8.5 7.5 - 11.5 fL 10/30/2025 9:26 AM EST [facility] Whole Blood 10/30/2025 8:07 AM EST 10/30/2025 9:11 AM EST Narrative [facility] - 10/30/2025 9:26 AM EST [facility] liver transplant labs. Please fax results to [phone]. Call critical results to [phone]. us Felice Nugent III, MD LAB BLOOD ORDERABLE S Final Result [facility] [address] [place] [address], [facility] * (ABNORMAL) Renal Function Panel w/EGFR (10/30/2025 8:07 AM EST) Sodium 138 133 - 146 mmol/L 10/30/2025 10:12 AM EST [facility] Potassium 4.5 3.5 - 5.3 mmol/L 10/30/2025 10:12 AM EST [facility] Chloride 101 98 - 110 mmol/L 10/30/2025 10:12 AM EST [facility] CO2 29 21 - 33 mmol/L 10/30/2025 10:12 AM EST [facility] Comment:High lactate dehydro genase concentrations in patient samples may cause falsely increased bicarbonate results. If markedly elevated LDH is observed or suspected, please assess results in conjunction with patient`s clinical presentation. In cases of discrepant results, consider evaluating CO2 in with a blood gas order. Anion Gap 8 3 - 16 mmol/L 10/30/2025 10:12 AM [facility] BUN 17 7 - 25 mg/dL 10/30/2025 10:12 AM [facility] Creatinine 0.90 0.60 - 1.30 mg/dL 10/30/2025 10:12 AM [facility] Glucose 124(H) 70 - 100 mg/dL 10/30/2025 10:12 AM [facility] Calcium 7.9(L) 8.6 - 10.3 mg/dL 10/30/2025 10:12 AM [facility] Phosphorus 3.9 2.1 - 4.7 mg/dL 10/30/2025 10:12 AM [facility] Albumin 2.9(L) 3.5 - 5.7 g/dL 10/30/2025 10:12 AM [facility] Osmolality, Calculated 289 278 - 305 mOsm/kg 10/30/2025 10:12 AM [facility] EGFR >90 10/30/2025 10:12 AM [facility] Comment: As [...] 8:07 AM EST 10/30/2025 9:12 AM EST [facility] - 10/30/2025 10:12 AM EST Standing liver transplant labs. Please fax results to [phone]. Call critical results to [phone]. Felice Nugent III, MD LAB BLOOD ORDERABLE S Final Result [facility] [address] [employer] [facility]. [address] * (ABNORMAL) Hepatic Function Panel (10/30/2025 8:07 AM EST) Total Bilirubin 2.4(H) 0.0 - 1.5 mg/dL 10/30/2025 10:12 AM EST [facility] Bilirubin, Direct 1.36(H) 0.00 - 0.40 mg/dL 10/30/2025 10:12 AM EST [facility] AST 39 13 - 39 U/L 10/30/2025 10:12 AM EST [facility] ALT 88(H) 7 - 52 U/L 10/30/2025 10:12 AM EST [facility] Alkaline Phosphatase 281(H) 36 - 125 U/L 10/30/2025 10:12 AM EST [facility] Total Protein 5.9(L) 6.4 - 8.9 g/dL 10/30/2025 10:12 AM EST [facility] Albumin 2.9(L) 3.5 - 5.7 g/dL 10/30/2025 10:12 AM EST [facility] Bilirubin, Indirect 1.04 0.00 - 1.10 mg/dL 10/30/2025 10:12 AM EST [facility] Plasma 10/30/2025 8:07 AM EST 10/30/2025 9:12 AM EST Narrative [facility] - 10/30/2025 10:12 AM EST Standing liver transplant labs. Please fax results to [phone]. Call critical results to [phone]. Felice Nugent III, MD LAB BLOOD ORDERABLE S Final Result [facility] [address] [place] [id number], [facility] documented in this encounter Visit Diagnoses Diagnosis S/P liver transplant ([facility])- Primary Immunosuppression ([facility]) documented in this encounter Additional Health Concerns Assessment Noted Time PHQ-9 Depression Total Score: 8 09/10/20 11:09 AM EDT documented as of this encounter Care Teams Store Receiving Specialist Relationship Specialty Start Date End Date System, Provider Not In PCP - General 09/10/25 10/24/25 documented as of this encounter
--- OUTSIDE RECORDS SUMMARY | 2025-11-12 07:22 | XMS_ITS | Encounter Summary ---
Author Organization [facility] Address [address] [place] [address] Care Team Providers Care Retail Receiving Clerk Name Role Phone KaronUrban Hosea CAMARA Primary Care Provider [phone] Encounter Details Date Type Department Care Team (Late st Contact Info) Description 10/14/2023 Telephone [facility] GASTROENTEROLOGY [address] [facility] [address] [place] [address] Ruma Hernández, ABSORPTION AND ADSORPTION ENGINEER [address] [facility] [address] [place], [place] [id number] Social History Tobacco Use Types Packs/Day Years [...] filedocumented in this encounter Care Teams Retail Receiving Clerk Relationship Specialty Start Date End Date Urban Brantley DO [address] [place] [address] PCP - General Internal Medicine 03/22/23 documented as of this encounter
--- OUTSIDE RECORDS SUMMARY | 2025-11-12 07:22 | XMS_ITS | Encounter Summary ---
Author Organization [facility] Address [address] [place] [address] Care Team Providers Care Case Aide Name Role Phone System, Provider Not In [...] release of HIV test results or diagnoses. [id number] Health Encounter Details Date Type Department Care Team (Late st Contact Info) Description 10/03/2025 Chart Note [facility] Kidney Transplant at [address] [address] Ailin Wells Organ: Liver Social History Tobacco [...] Organ: Liver Patient [place] Citizen: Yes Patient [place]: No Patient is Minor Children in the home: no Patient is retired, spouse works FT Income:$11k/mnth combined Primary Ins: [employer] Insured:self Secondary Ins: N/A COBRA: No- insurance plan is paid by previous employer as part of jail package Eligible for short/nursing home disability: N/A Disability due to: n/A Travel/Lodging: no No Medicare: Will be eligible in January of 2026. Provided Ret[employer] info Discussed Medication List and Coverage: Yes Patient will need medications from [facility] post txp:unknown Recipient needs cleared prior to donor being evaluated:no Evaluation for patients/donors need to be done at [facility] Obtained signature on benefits sheets and financial consent: mailed to patient documented in this encounter Plan of Treatment Not on file documented as of this encounter Visit Diagnoses Not on filedocumented in this encounter Additional Health Concerns Assessment Noted Time PHQ-9 Depression Total Score: 8 09/10/20 11:09 AM EDT documented as of this encounter Care Teams Case Aide Relationship Specialty Start Date End Date System, Provider Not In PCP - General 09/10/25 10/24/25 documented as of this encounter
--- OUTSIDE RECORDS SUMMARY | 2025-11-12 07:22 | XMS_ITS | Encounter Summary ---
Author Organization [facility] Address [address] [place] [address] Care Team Providers Care Sheet Rock Nailer Name Role Phone System, Provider Not In [...] release of HIV test results or diagnoses. [id number] Health Encounter Details Date Type Department Care Team (Late st Contact Info) Description 10/19/2025 Education Chart Note [facility] Liver Transplant at [address] [address] Giovanna June, RN Social History Tobacco Use [...] the past 12 months has th e [employer], gas, oil, or water [employer] threatened to shut off services in your [...] of Infection/Rejection [x] 5. When to call customer solutions coordinator [x] 6. Outpatient follow up including [...] as of this encounter Care Teams Sheet Rock Nailer Relationship Specialty Start Date End Date System, Provider Not In PCP - General 09/10/25 10/24/25 documented as of this encounter
--- OUTSIDE RECORDS SUMMARY | 2025-11-12 07:22 | XMS_ITS | Encounter Summary ---
Author Organization [facility] Address [address] [place] [address] Care Team Providers Care Dining Room Manager Name Role Phone System, Provider Not [...] release of HIV test results or diagnoses. [id number] Health Encounter Details Date Type Department Care Team (Late st Contact Info) Description 09/20/2025 Chart Note [facility] Liver Transplant at [address] [address] Chapito Alcantar RN Spoke with patient's spouse [...] documented as of this encounter Care Teams Dining Room Manager Relationship Specialty Start Date End Date System, Provider Not In PCP - General 09/10/25 10/24/25 documented as of this encounter
--- OUTSIDE RECORDS SUMMARY | 2025-11-12 07:22 | XMS_ITS | Encounter Summary ---
Author Organization [facility] Address [address] [place] [address] Care Team Providers Care Explosives Operator Name Role Phone System, Provider Not [...] release of HIV test results or diagnoses. [id number] Health Encounter Details Date Type Department Care Team (Late st Contact Info) Description 10/23/2025 Orders Only [facility] Liver Transplant at [address] [address] Giovanna June, RN Liver replaced by transplant ([facility]) (Primary Dx) Social History Tobacco Use Types [...] Associated Diagnoses Orde r Schedule US Duplex Qii-Sln-Iqxpnah Comp Imaging Routine Liver replaced by transplant [...] documented as of this encounter Care Teams Explosives Operator Relationship Specialty Start Date End Date System, Provider Not In PCP - General 09/10/25 10/24/25 documented as of this encounter
--- OUTSIDE RECORDS SUMMARY | 2025-11-12 07:22 | XMS_ITS | Encounter Summary ---
Author Organization [facility] Address [address] [place] [address] Care Team Providers Care Elementary Librarian Name Role Phone System, Provider Not [...] release of HIV test results or diagnoses. [id number] Health Encounter Details Date Type Department Care Team (Late st Contact Info) Description 09/25/2025 Telephone [facility] Liver Transplant at [address] [address] Chapito Alcantar, SILVIO Social History Tobacco Use [...] is agreeable to be listed on the [facility] transplant wait list. Reviewed HBV/HCV/acute risk organs with patient. They are agreeable toall offers. Patient lives 1.5-2 hours from [facility]. documented in this encounter Plan of Treatment Not on file documented as of this encounter Visit Diagnoses Not on filedocumented in this encounter Additional Health Concerns Assessment Noted Time PHQ-9 Depression Total Score: 8 09/10/20 11:09 AM EDT documented as of this encounter Care Teams Elementary Librarian Relationship Specialty Start Date End Date System, Provider Not In PCP - General 09/10/25 10/24/25 documented as of this encounter
--- OUTSIDE RECORDS SUMMARY | 2025-11-12 07:22 | XMS_ITS | Encounter Summary ---
Author Organization [facility] Address [address] [place] [address] Care Team Providers Care Mortgage Operations Manager Name Role Phone System, Provider Not [...] release of HIV test results or diagnoses. [id number] Health Encounter Details Date Type Department Care Team (Late st Contact Info) Description 10/03/2025 Telephone [facility] Liver Transplant at [address] [address] Pb Sy, RN Social History Tobacco Use [...] well as Bed Board, OR Charge, Nursing Pin Inserter, blood bank and Sicu charge. documented in this encounter Plan of Treatment Not on file documented as of this encounter Visit Diagnoses Not on filedocumented in this encounter Additional Health Concerns Assessment Noted Time PHQ-9 Depression Total Score: 8 09/10/20 11:09 AM EDT documented as of this encounter Care Teams Mortgage Operations Manager Relationship Specialty Start Date End Date System, Provider Not In PCP - General 09/10/25 10/24/25 documented as of this encounter
--- OUTSIDE RECORDS SUMMARY | 2025-11-12 07:22 | XMS_ITS | Encounter Summary ---
Author Organization [facility] Address [address] [place] [address] Care Team Providers Care County Sheriff Name Role Phone KaronUrban Hosea CAMARA Primary Care Provider [phone] Encounter Details Date Type Department Care Team (Late st Contact Info) Description 10/14/2023 Telephone [facility] GASTROENTEROLOGY [address] [facility] [address] [place] [address] Ruma Hernández, RESEARCH LABORATORY SPECIALIST [address] [facility] [address] [place], [place] [id number] Social History Tobacco Use Types Packs/Day Years [...] on filedocumented in this encounter Care Teams County Sheriff Relationship Specialty Start Date End Date Urban Brantley DO [address] [place] [address] PCP - General Internal Medicine 03/22/23 documented as of this encounter
--- OUTSIDE RECORDS SUMMARY | 2025-11-12 07:22 | XMS_ITS | Encounter Summary ---
Author Organization [facility] Address [address] [place] [address] Care Team Providers Care Substation Operator Conversion Name Role Phone System, Provider Not In [...] release of HIV test results or diagnoses. [id number] Health Encounter Details Date Type Department Care Team (Late st Contact Info) Description 10/22/2025 Chart Note [facility] Liver Transplant at [address] [address] Cori Womack, PharmD Liver Transplant Pharmacy Discharge [...] been consistently below 30 since transplant and [facility] was held inpatient, the team decided on [...] a day with meals. Was on ergocalciferol YIELD ANALYST but vitamin D level inpatient >20 furosemide [...] mouth every morning before breakfast. 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
--- OUTSIDE RECORDS SUMMARY | 2025-11-12 07:22 | XMS_ITS | Clinical Summary ---
Author Organization [facility] Address [address] [place] [address] Care Team Providers Care Envelope Folding Machine Operator Name Role Phone Ruma Hernández IMAGER Unavailable [phone] Chris Medel MD Primary Care Provider [phone] Allergies Active Allergy Reactions Criticality Noted Date Comments Lisinopril Cough Low 09/15/2021 Medications carvedilol (Coreg) 3.125 MG tabletIndication s:Cirrhosis of liver with ascites, unspecified hepatic cirrhosis type Take 1 tablet (3.125 mg) by mouth 2 (two) times a day with meals. 60 tablet 11 4 Active ergocalciferol (Vitamin D-2) 1.25 MG (45723 UT) capsule Take 1 capsule by mouth [...] Department Care Team Description 10/16/2025 Results Follow-Up [facility] [address] [place] [address] Meaghan Le RN 10/15/2025 Telephone [facility] [employer] [facility] [address] [facility] [address], [address] [place] [address] Moustapha Katz MD HCN - Patient Message 10/09/2025 Results Follow-Up [facility] [address] [place] [address] Meaghan Le RN 10/08/2025 Orders Only [facility] [address] [place] [phone] Provider, Historical 10/02/2025 Refill [facility] [address] [phone] Portia Maguire MD Pre-liver transplant, listed (Primary Dx); End-stage liver disease (CMS/HCC) 09/12/2025 10:00 AM EDT Office Visit [facility] [address] [place] [address] Portia Maguire MD Pre-liver transplant, listed [...] S Radiology [address], 1[address] [place] [address] Pre-liver transplant, listed Discharge Disposition: Home or Self Care 09/12/2025 Results Follow-Up [facility] [address] [place] [phone] Meaghan Le RN 09/12/2025 Travel 09/11/2025 Travel 09/05/2025 Orders Only [facility] [address] [place] [phone] Meaghan Le RN Pre-liver transplant, listed (Primary Dx) 08/31/2025 Results Follow-Up [facility] [address] [place] [phone] Meaghan Le, RN 08/29/2025 Orders Only [facility] [address], [address] [place] [phone] Provider, Historical 08/20/2025 Results Follow-Up [facility] [address] [place] [address] Meaghan Le RN from Last [...] often do you attend chur ch or roman catholic services? More than 4 [...] attend [facility] or roman catholic services? More than 4 [...] drink first t luisa in the morning (EYE-CABLE REELER) to steady your nerves or to get [...] [facility], [address] [place] [address] Suhail Brock MD [address] [place] [address] 01/24/2026 4:40 PM EDT Office Visit [facility] [employer] [facility] [address] [facility] [address], [address] [place] [address] Moustapha Katz MD [address] [facility] [address] [place] [address] Health Maintenance Due Date Last Done Comments [facility]-Infant/Child/Adol SDOH Screenings 1960 [id number] Vaccine (#1) 1960 [facility]-Hepatitis A Vaccines (1 [...] EST) Blood Venous blood specimen / Unknown [facility] Provider LAB BLOOD ORDERABLES Final R [...] included. Blood Venous blood specimen / Unknown [facility] Provider LAB BLOOD ORDERABLES Final R esult * CBC W/O Differential (10/08/2025) Only the most recent of5 resultswithin the time period is included. External WBC 3.3 External Red Blood Cell (RBC) 3.23 External Hemoglobin (Hgb) 10.80 External Hematocrit (Hct) 32.6 External Platelet Count (Plt) 71 Blood Venous blood specimen / Unknown 10/08/2025 [facility] LAB BLOOD ORDERABLES Final R esult * [...] Blood Venous blood specimen / Unknown 10/08/2025 [facility] Provider LAB BLOOD ORDERABLES Final R [...] are consistent with and integrated into the [employer] Liver Diseases [...] using the following sequences: coronal single shot [id number] fast spin echo, axial T2 weighted sequences [...] are consistent with and integrated into the [employer] Associationfor the Study of Liver Diseases (AASLD) [...] <20 <20 ng/mL 09/14 7:16 AM EDT [facility] Alpha OH Midazolam <20 <20 ng/mL 2024 7:16 AM EDT [facility] Alpha OH Triazolam <20 <20 ng/mL 2024 7:16 AM EDT [facility] Alprazolam <10 <10 ng/mL 09/14/2025 7:16 AM EDT [facility] Aminoclonazepam <20 <20 ng/mL 7:16 AM EDT [facility] Amphetamine <50 <50 ng/mL 09/14/2025 7:16 AM EDT [facility] Benzoylecgonine <50 <50 ng/mL 7:16 AM EDT [facility] Buprenorphine <10 <10 ng/mL 09/14/2025 7:16 AM EDT [facility] Buprenorphine Glucuronide <50 <50 ng/mL 09/14/2025 7:16 AM EDT [facility] Butalbital <50 <50 ng/mL 09/14/2025 7:16 AM EDT [facility] 9 Carboxy THC <10 <10 ng/mL 09/14/2025 7:16 AM EDT [facility] 9 Carboxy THC Glucuronide <25 <25 ng/mL 09/14/2025 7:16 AM EDT [facility] Clonazepam <10 <10 ng/mL 09/14/2025 7:16 AM EDT [facility] Codeine <50 <50 ng/mL 09/14/2025 7:16 AM EDT [facility] Codeine Glucuronide <50 <50 ng/mL 09/14 7:16 AM EDT [facility] Cyclobenzaprine <50 <50 ng/mL 7:16 AM EDT [facility] Desmethyl Tramadol <50 <50 ng/mL 2024 7:16 AM EDT [facility] Diazepam <10 <10 ng/mL 09/14/2025 7:16 AM EDT [facility] EDDP - Methadone Metabolite <50 <50 ng/mL 09/14/2025 7:16 AM EDT [facility] Fentanyl <1 <1 ng/mL 09/14/2025 7:16 AM EDT [facility] Hydrocodone <50 <50 ng/mL 09/14/2025 7:16 AM EDT [facility] Hydromorphone <50 <50 ng/mL 09/14/2025 7:16 AM EDT [facility] Hydromorphone Glucuronide <50 <50 ng/mL 09/14/2025 7:16 AM EDT [facility] Lorazepam <20 <20 ng/mL 09/14/2025 7:16 AM EDT [facility] Lorazepam Glucuronide <50 <50 ng/mL 09/14/2025 7:16 AM EDT [facility] MDA <50 <50 ng/mL 09/14/2025 7:16 AM EDT [facility] MDMA <50 <50 ng/mL 09/14/2025 7:16 AM EDT [facility] Meperidine <50 <50 ng/mL 09/14/2025 7:16 AM EDT [facility] Methadone <50 <50 ng/mL 09/14/2025 7:16 AM EDT [facility] Methamphetamine <50 <50 ng/mL 7:16 AM EDT [facility] Methylphenidate <50 <50 ng/mL 7:16 AM EDT [facility] 6 Monoacetyl morphine <10 <10 ng/mL 09/14/2025 7:16 AM EDT [facility] Morphine <50 <50 ng/mL 09/14/2025 7:16 AM EDT [facility] Morphine Glucuronide <50 <50 ng/mL 08/17 7:16 AM EDT [facility] Naloxone <50 <50 ng/mL 09/14/2025 7:16 AM EDT [facility] Naloxone Glucuronide <50 <50 ng/mL 08/17 7:16 AM EDT [facility] Norbuprenorphine <10 <10 ng/mL 09/14/20 7:16 AM EDT [facility] Norbuprenorphine Glucuronide <50 <50 ng/mL 09/14/2025 7:16 AM EDT [facility] Nordiazepam <20 <20 ng/mL 09/14/2025 7:16 AM EDT [facility] Norfentanyl <2 <2 ng/mL 09/14/2025 7:16 AM EDT [facility] Normeperidine <50 <50 ng/mL 09/14/2025 7:16 AM EDT [facility] PCP Quant, Ur <50 <50 ng/mL 09/14/2025 7:16 AM EDT [facility] Phenobarbital <50 <50 ng/mL 09/14/2025 7:16 AM EDT [facility] Oxazepam <20 <20 ng/mL 09/14/2025 7:16 AM EDT [facility] Oxazepam Glucuronide <50 <50 ng/mL 08/17 7:16 AM EDT [facility] Oxycodone <50 <50 ng/mL 09/14/2025 7:16 AM EDT [facility] Oxymorphone <50 <50 ng/mL 09/14/2025 7:16 AM EDT [facility] Oxymorphone Glucuronide <50 <50 ng/mL 09/14/2025 7:16 AM EDT [facility] Secobarbital <50 <50 ng/mL 09/14/2025 7:16 AM EDT [facility] Tramadol <50 <50 ng/mL 09/14/2025 7:16 AM EDT [facility] Temazepam <20 <20 ng/mL 09/14/2025 7:16 AM EDT [facility] Temazepam Glucuronide <50 <50 ng/mL 09/14/2025 7:16 AM EDT [facility] Urine Urine specimen obtained by clean catch procedure / Unknown Non-blood Collection / Unknown 09/12/2025 7:55 AM EDT 09/12/2025 8:51 AM EDT Narrative [facility] - 09/14/2025 7:16 AM [...] laboratory. Test performed by LC-MS/MS at the [facility]. This test was developed and its performance characteristics determined by [facility]. It has not been cleared or approved by the FDA. The laboratory is regulated under CLIA as qualified to perform high-complexity testing. This test is used for clinical purposes. us Pearce M Alzubaidi MD LAB URINE ORDERABLES Nadia l Result Performing Organization Address City/[facility]/ZIP Co de Phone Number [facility] [address] [place] [address] * Alpha Fetoprotein, Serum (09/12/2025 7:55 AM EDT) Alpha Fetoprotein, Serum <2.3 <10.0 ng/mL 09/12/2025 10:18 AM EDT [facility] Blood Venous blood specimen / Unknown Venipuncture / Unknown 09/12/2025 7:55 AM EDT 09/12/2025 8:46 AM EDT Narrative [facility] - 09/12/2025 10:18 AM EDT Performed by Stacey electrochemiluminescent immunoassay which is traceable to the [address] [place] [address] IRP WHO Reference standard 72/255. Results obtained with different test methods or kits cannot be used interchangeably. Portia Maguire MD LAB BLOOD ORDERABLES Nadia l Result Performing Organization Address City/[facility] Co de Phone Number [facility] [address] [place] [address] * Nicotine Cotinine Metabolite (09/12/2025 7:55 AM EDT) NICOTINE <5 <5 ng/mL 09/14/2025 10:24 AM EDT [facility] Cotinine <5 <5 ng/mL 09/14/2025 10:24 AM EDT [facility] Blood Venous blood specimen / Unknown Venipuncture / Unknown 09/12/2025 7:55 AM EDT 09/12/2025 8:46 AM EDT Narrative [facility] - 09/14/2025 10:24 AM EDT Testing performed by LC-MS/MS at the [facility]/Toxicology Laboratory. This test was developed and its performance characteristics determined by [facility]. This assay has not been cleared by the FDA. The laboratory is regulated under CLIA as qualified to perform high-complexity testing. This test is used for clinical purposes. Portia Maguire MD LAB BLOOD ORDERABLES Nadia l Result Performing Organization Address [facility] Co de Phone Number [facility] [address] [place] [address] * Alcohol Urine (09/12/2025 7:55 AM EDT) Alcohol Urine Negative Negative 09/12/2025 1:41 PM EDT [facility] Urine Urine specimen obtained by clean catch procedure / Unknown Non-blood Collection / Unknown 09/12/2025 7:55 AM EDT 09/12/2025 8:51 AM EDT Narrative [facility] - 09/12/2025 1:41 PM EDT The correlation between urine and serum ethanol concentration is highly variable. Test performed by Gas Chromatography at the [facility]. This test was developed and its performance characteristics determined by [facility]. It has not been cleared or approved by the FDA.The laboratory is regulated under CLIA as qualified to perform high-complexity testing. This test is used for clinical purposes only. The correlation between urine and serum ethanol concentration is highly variable. Test performed by Gas Chromatography at the [facility]. This test was developed and its performance characteristics determined by [facility]. It has not been cleared or approved by the FDA.The laboratory is regulated under CLIA as qualified to perform high-complexity testing. This test is used for clinical purposes only. Portia Maguire MD LAB URINE ORDERABLES Nadia l Result Performing Organization Address [facility] Co de Phone Number [facility] [address] [place] [address] * Comprehensive Urine Drug Screening, Qualitative Assay, >= 27 Drug Classes (09/12/2025 7:55 AM EDT) Acetaminophen Negative Negative 09/16/2025 3:50 AM EST [facility] Alprazolam Negative Negative 09/16/2025 3:50 AM EST [facility] Amantadine Negative Negative 09/16/2025 3:50 AM EST [facility] Amitriptyline Negative Negative 09/16/2025 3:50 AM EST [facility] Amphetamine Negative Negative 09/16/2025 3:50 AM EST [facility] Atenolol Negative Negative 09/16/2025 3:50 AM EST [facility] Benzoylecgonine Negative Negative 3:50 AM EST [facility] Bisoprolol Negative Negative 09/16/2025 3:50 AM EST [facility] Bupropion Negative Negative 09/16/2025 3:50 AM EST [facility] Butalbital Negative Negative 09/16/2025 3:50 AM EST [facility] Carbamazepine Negative Negative 09/16/2025 3:50 AM EST [facility] Carisoprodol Negative Negative 09/16/2025 3:50 AM EST [facility] Chlorpheniramine Negative Negative 09/16/20 3:50 AM EST [facility] Citalopram Negative Negative 09/16/2025 3:50 AM EST [facility] Clindamycin Negative Negative 09/16/2025 3:50 AM EST [facility] Clonidine Negative Negative 09/16/2025 3:50 AM EST [facility] Clopidogrel / Ticlopidine Negative Negative 09/16/2025 3:50 AM EST [facility] Cocaethylene Negative Negative 09/16/2025 3:50 AM EST [facility] Cocaine Negative Negative 09/16/2025 3:50 AM EST [facility] Codeine Negative Negative 09/16/2025 3:50 AM EST [facility] Cyclobenzaprine Negative Negative 3:50 AM EST [facility] Desvenlafaxine Negative Negative 09/16/2025 3:50 AM EST [facility] Dextromethorphan Negative Negative 09/16/20 3:50 AM EST [facility] Diazepam Negative Negative 09/16/2025 3:50 AM EST [facility] Diltiazem Negative Negative 09/16/2025 3:50 AM EST [facility] Diphenhydramine Negative Negative 3:50 AM EST [facility] Doxepine Negative Negative 09/16/2025 3:50 AM EST [facility] Doxylamine Negative Negative 09/16/2025 3:50 AM EST [facility] EDDP-Methadone metabolite Negative Negative 09/16/2025 3:50 AM EST [facility] Fentanyl Negative Negative 09/16/2025 3:50 AM EST [facility] Fluconazole Negative Negative 09/16/2025 3:50 AM EST [facility] Fluoxetine Negative Negative 09/16/2025 3:50 AM EST [facility] Guaifenesin Negative Negative 09/16/2025 3:50 AM EST [facility] Haloperidol Negative Negative 09/16/2025 3:50 AM EST [facility] Heroin/6-MARY Negative Negative 09/16/2025 3:50 AM EST [facility] Hydrocodone Negative Negative 09/16/2025 3:50 AM EST [facility] Hydroxyzine / Cetirizine metabolite Negative Negative 09/16/2025 3:50 AM EST [facility] Ibuprofen Negative Negative 09/16/2025 3:50 AM EST [facility] Imipramine Negative Negative 09/16/2025 3:50 AM EST [facility] Ketamine Negative Negative 09/16/2025 3:50 AM EST [facility] Labetolol Negative Negative 09/16/2025 3:50 AM EST [facility] Lamotrigine Negative Negative 09/16/2025 3:50 AM EST [facility] Levetiracetam Negative Negative 09/16/2025 3:50 AM EST [facility] Lidocaine Negative Negative 09/16/2025 3:50 AM EST [facility] MDA Negative Negative 09/16/2025 3:50 AM EST [facility] MDMA Negative Negative 09/16/2025 3:50 AM EST [facility] Memantine Negative Negative 09/16/2025 3:50 AM EST [facility] Meperidine Negative Negative 09/16/2025 3:50 AM EST [facility] Meprobamate Negative Negative 09/16/2025 3:50 AM EST [facility] Metaxalone Negative Negative 09/16/2025 3:50 AM EST [facility] Methamphetamine Negative Negative 3:50 AM EST [facility] Methocarbamol Negative Negative 09/16/2025 3:50 AM EST [facility] Methylecgonine Negative Negative 09/16/2025 3:50 AM EST [facility] Metoclopramide Negative Negative 09/16/2025 3:50 AM EST [facility] Metoprolol Negative Negative 09/16/2025 3:50 AM EST [facility] Metronidazole Negative Negative 09/16/2025 3:50 AM EST [facility] Midazolam Negative Negative 09/16/2025 3:50 AM EST [facility] Midazolam Metabolite Negative Negative 12/2024 3:50 AM EST [facility] Mirtazapine Negative Negative 09/16/2025 3:50 AM EST [facility] Misc Test Result Negative Negative 09/16/20 3:50 AM EST [facility] Naproxen Negative Negative 09/16/2025 3:50 AM EST [facility] Nefazodone Negative Negative 09/16/2025 3:50 AM EST [facility] Norfentanyl Negative Negative 09/16/2025 3:50 AM EST [facility] Nortriptyline Negative Negative 09/16/2025 3:50 AM EST [facility] Ordanstron Negative Negative 09/16/2025 3:50 AM EST [facility] Oxcarbazepine Negative Negative 09/16/2025 3:50 AM EST [facility] Oxycodone Negative Negative 09/16/2025 3:50 AM EST [facility] Paroxethine Negative Negative 09/16/2025 3:50 AM EST [facility] Phenobarbital Negative Negative 09/16/2025 3:50 AM EST [facility] Phentermine Negative Negative 09/16/2025 3:50 AM EST [facility] Phenytoin Negative Negative 09/16/2025 3:50 AM EST [facility] Primidone Negative Negative 09/16/2025 3:50 AM EST [facility] Promethazine Negative Negative 09/16/2025 3:50 AM EST [facility] Propofol Negative Negative 09/16/2025 3:50 AM EST [facility] Propranolol Negative Negative 09/16/2025 3:50 AM EST [facility] Quetiapine Negative Negative 09/16/2025 3:50 AM EST [facility] Quinine Negative Negative 09/16/2025 3:50 AM EST [facility] Rantidine Negative Negative 09/16/2025 3:50 AM EST [facility] Sertraline Negative Negative 09/16/2025 3:50 AM EST [facility] Spironolactone Negative Negative 09/16/2025 3:50 AM EST [facility] Tizanidine Negative Negative 09/16/2025 3:50 AM EST [facility] Topiramate Negative Negative 09/16/2025 3:50 AM EST [facility] Tramadol Negative Negative 09/16/2025 3:50 AM EST [facility] Trazadone/ Trazadone metabolite Negative Negative 09/16/2025 3:50 AM EST [facility] Trimethoprim Negative Negative 09/16/2025 3:50 AM EST [facility] Valproic Acid Negative Negative 09/16/2025 3:50 AM EST [facility] Venlafaxine Negative Negative 09/16/2025 3:50 AM EST [facility] Verapamil Negative Negative 09/16/2025 3:50 AM EST [facility] Zolpidem Negative Negative 09/16/2025 3:50 AM EST [facility] Xylazine Negative Negative 09/16/2025 3:50 AM EST [facility] Urine Urine specimen obtained by clean catch procedure / Unknown Non-blood Collection / Unknown 09/12/2025 7:55 AM EDT 09/12/2025 8:51 AM EDT us Portia Maguire MD LAB URINE ORDERABLES Nadia l Result [facility] [address] [place] [address] * HIV 1 & 2 Antibody/Antigen Screen [...] ORDERABLES Nadia l Result Performing Organization Address [facility] Co de Phone Number [facility] [address] [place] [address] * Hepatitis C Antibody (06/14/2025 6:31 PM EDT) Hepatitis C Antibody Negative Negative 06/14/2025 7:45 PM EDT [facility] Blood Venous blood specimen / Unknown Venipuncture / Unknown 06/14/2025 6:31 PM EDT 06/14/2025 7:05 PM EDT us Luis Angel Bee MD LAB BLOOD ORDERABLES Nadia l Result Performing Organization Address [facility] Co de Phone Number [facility] [address] [place] [address] * Dexa Bone Density (06/08/2025 8:35 AM EDT) Anatomical Region Laterality Modality L-spine Radiographic Liseth ging Narrative 06/17/2025 10:[address] [facility] [address] [place] [address] DXA Bone Densitometry Report: [06/08/2025] BMD test performed using the Workbooks DXA System (analysis version: 14.10) manufactured by [employer]. REFERRING PROVIDER: Dr. Moustapha Katz MD CLINICAL [...] of change in BMD). Moustapha Katz MD [facility] [place] PROCEDURES Final Resul t from Last 3 Months or Most Recently Relevant to Health Maintenance Insurance [place] [id number] ANTHEM Advance Directives Documents on File Type Date Recorded Patient Mixologist Expl anation Power of Bistro Server 07/11/2025 POA / Trudy ng Will Care Teams Envelope Folding Machine Operator Relationship Specialty Start Date End Date Chris Medel MD [id number] PCP - General 03/14/25 Ruma Hernández APRN [address] [place] [address] Referring Physician Gastroenterology 07/30/23
--- OUTSIDE RECORDS SUMMARY | 2025-11-12 07:22 | XMS_ITS | Encounter Summary ---
Author Organization [facility] Address [address] [place] [id number] Care Team Providers Care News Intern Name Role Phone System, Provider Not In [...] release of HIV test results or diagnoses. [id number] Health Encounter Details Date Type Department Care Team (Late st Contact Info) Description 09/25/2025 Chart Note [facility] at [address] [phone] Ailin Wells Authorization for listing Social History [...] for listing Organ: Liver Insurance Co: Jay[employer] [facility] Hazard[employer] Materials Waste Technician: Serena Carter ext [phone] Authorization # [id number] Dates of Service: 09/24/2025-09/23/2026 Additional Information: Scanned to PFS documented in this encounter Plan of Treatment Not on file documented as of this encounter Visit Diagnoses Not on filedocumented in this encounter Additional Health Concerns Assessment Noted Time PHQ-9 Depression Total Score: 8 09/10/20 11:09 AM EDT documented as of this encounter Care Teams News Intern Relationship Specialty Start Date End Date System, Provider Not In PCP - General 09/10/25 10/24/25 documented as of this encounter
--- OUTSIDE RECORDS SUMMARY | 2025-11-12 07:22 | XMS_ITS | Encounter Summary ---
Author Organization Healthcare Address [address] [place] [address] Care Team Providers Care Hearing Specialist Name Role Phone Ruma Hernández EMBEDDED DEVELOPER Unavailable [phone] Chris Medel MD Primary Care Provider [phone] Encounter Details Date Type Department Care Team (Late st Contact Info) Description 08/01/2025 Results Follow-Up [facility] [address] [place] [phone] Meaghan Le, RN [facility] LIVER [id number] [address] [place] [address] Social History Tobacco Use Types Packs/Day Years [...] 02/19/2025 How often do you attend [facility] or hindu services? More than 4 times per year 02/19/2025 Do you belong to any clubs o r organizations such as restorationist groups, unions, Medivoternal or athletic groups, or school groups? Yes [...] all 06/15/2025 [facility] - Occupational Stress Questionnaire Answer [...] drink first t luisa in the morning (EYE-PLUG PASTER) to steady your nerves or to get rid of a hangover? 0 06/14/2025 CAGE Questionnaire Score 0 025 Utilities Answer Date Recorded In the past 12 months has e [employer], gas, oil, or water [employer] threatened to shut off services in your [...] [address], [address] [place] [address] Suhail Brock MD [address] [place] [address] 01/24/2026 4:40 PM EDT Office Visit Professional [facility] Bone & Mineral Metabolism [address], [address] [place] [address] Moustapha Katz MD [address] [facility] [address] [place] [address] documented as of this encounter [...] documented as of this encounter Care Teams Hearing Specialist Relationship Specialty [place] [address] PCP - General 03/14/25 Ruma Hernández APRN [address] [place] [address] Referring Physician Gastroenterology 07/30/23 documented as of this encounter
--- OUTSIDE RECORDS SUMMARY | 2025-11-12 07:22 | XMS_ITS | Encounter Summary ---
Author Organization [facility] Address [address] [place] [address] Care Team Providers Care Plant Mechanic Name Role Phone System, Provider Not [...] release of HIV test results or diagnoses. [id number] Health Encounter Details Date Type Department Care Team (Late st Contact Info) Description 09/25/2025 Chart Note [facility] Liver Transplant at [address] [address] Chapito Alcantar RN UNOS VERIFICATION CHECK FORM [...] Multidisciplinary Team documentation Initial Hepatology assessment aw log chain worker within the last year aw Dietitian [...] nlc Physical Capacity nlc Working for Income [facility] Multidisciplinary Team documentation Initial Hepatology assessment nlc log chain worker within the last year nlc Dietitian within the last year nlc Finance within the last year nlc Pharmacy within the last year nl Initial surgery assessment nlc RN coordinator EDU documentation nlc Book marked labs/pertinent data (Regulatory) [facility] documented in this encounter Plan of Treatment [...] documented as of this encounter Care Teams Plant Mechanic Relationship Specialty Start Date End Date System, Provider Not In PCP - General 09/10/25 10/24/25 documented as of this encounter
--- OUTSIDE RECORDS SUMMARY | 2025-11-12 07:22 | XMS_ITS | Encounter Summary ---
Author Organization Healthcare Address [address] [place] [address] Care Team Providers Care Backing In Machine Tender Name Role Phone Ruma Hernández LIFE GUARD Unavailable [phone] Chris Medel MD Primary Care Provider [phone] Encounter Details Date Type Department Care Team (Late st Contact Info) Description 08/20/2025 Results Follow-Up [facility] [address] [place] [phone] Meaghan Le, RN [place] [facility] LIVER [id number] [address] [place] [address] Social History Tobacco Use Types Packs/Day Years [...] do you attend [facility] or samaritan services? More than 4 times per year 02/19/2025 Do you belong to any clubs o r organizations such as druze groups, unions, [employer] or athletic groups, or school groups? Yes [...] at all 06/15/2025 [facility] - Occupational Stress [...] drink first t luisa in the morning (EYE-SWATCH PASTER) to steady your nerves or to get rid of a hangover? 0 06/14/2025 CAGE Questionnaire Score 0 025 Utilities Answer Date Recorded In the past 12 months has th e [employer], gas, oil, or water [employer] threatened to shut off services in your [...] [address], [address] [place] [address] Suhail Brock MD [address] [facility] [address] [place] [address] 01/24/2026 4:40 PM EDT Office Visit Professional [employer] [facility] Bone & Mineral Metabolism [address], [address] [place] [address] Moustapha Katz MD [address] [facility] [address] [place] [address] documented as of this encounter [...] documented as of this encounter Care Teams Backing In Machine Tender Relationship Specialty [place] [address] PCP - General 03/14/25 Ruma Hernández APRN [address] [place] [address] Referring Physician Gastroenterology 07/30/23 documented as of this encounter
--- OUTSIDE RECORDS SUMMARY | 2025-11-12 07:24 | XMS_ITS | Encounter Summary ---
Author Organization [facility] Address [address] [place] [address] Care Team Providers Care Hose Coupling Joiner Name Role Phone System, Provider Not In [...] release of HIV test results or diagnoses. [id number] Health Encounter Details Date Type Department Care Team (Late st Contact Info) Description 09/19/2025 Telephone [facility] Transplant at [address] [address] Chapito Alcantar RN Social History Tobacco Use [...] an OSH with a transfer pending [facility]. Updated family that no bed is [...] documented as of this encounter Care Teams Hose Coupling Joiner Relationship Specialty Start Date End Date System, Provider Not In PCP - General 09/10/25 10/24/25 documented as of this encounter
--- OUTSIDE RECORDS SUMMARY | 2025-11-12 07:24 | XMS_ITS | Encounter Summary ---
Author Organization [facility] Address [address] [place] [address] Care Team Providers Care Fat Pressroom Worker Name Role Phone System, Provider Not [...] release of HIV test results or diagnoses. [id number] Health Encounter Details Date Type Department Care Team (Late st Contact Info) Description 10/24/2025 Telephone [facility] Liver Transplant at [address] [address] Linn Andres MA Social History [...] - 10/24/2025 8:23 AM EST Gisela from [facility] lab called to report critical lab value [...] documented as of this encounter Care Teams Fat Pressroom Worker Relationship Specialty Start Date End Date System, Provider Not In PCP - General 09/10/25 10/24/25 documented as of this encounter
--- OUTSIDE RECORDS SUMMARY | 2025-11-12 07:24 | XMS_ITS | Encounter Summary ---
Author Organization [facility] Address [address] [place] [address] Care Team Providers Care Laboratory Associate Name Role Phone System, Provider Not [...] release of HIV test results or diagnoses. [id number] Health Encounter Details Date Type Department Care Team (Late st Contact Info) Description 09/17/2025 Telephone [facility] Center [facility] at [facility] [address] [place] [address] Navi Sims MD [address] [facility] [address] [place] [address] Social History Tobacco Use Types Packs/Day [...] as of this encounter Care Teams Laboratory Associate Relationship Specialty Start Date End Date System, Provider Not In PCP - General 09/10/25 10/24/25 documented as of this encounter
--- OUTSIDE RECORDS SUMMARY | 2025-11-12 07:24 | XMS_ITS | Encounter Summary ---
Author Organization [facility] Address [address] [place] [address] Care Team Providers Care Global Position System Technician Name Role Phone Dr. Chris Medel [...] release of HIV test results or diagnoses. [id number] Health Encounter Details Date Type Department Care Team (Late st Contact Info) Description 10/25/2025 Orders Only [facility] Liver Transplant at [address] [address] Felice Nugent III, MD [address] [place] [address] Social History Tobacco Use Types Packs/Day [...] the past 12 months has th e [employer], gas, oil, or water company threatened to [...] S Final Result [facility] [address] [place] [address] documented in this encounter Visit Diagnoses Not on filedocumented in this encounter Additional Health Concerns Assessment Noted Time PHQ-9 Depression Total Score: 8 09/10/20 11:09 AM EDT documented as of this encounter Care Teams Global Position System Technician Relationship Specialty Start Date End Date Dr. Chris Medel MD [address] [place] [address] PCP - General Primary Care 10/25/25 documented as of this encounter
--- OUTSIDE RECORDS SUMMARY | 2025-11-12 07:24 | XMS_ITS | Encounter Summary ---
Author Organization [facility] Address [address] [place] [address] Care Team Providers Care Welfare Case Worker Name Role Phone System, Provider Not [...] release of HIV test results or diagnoses. [id number] Health Encounter Details Date Type Department Care Team (Late st Contact Info) Description 10/24/2025 Chart Note [facility] Liver Transplant at [address] [place] [address] Pita Pike MA FK pend [facility] Social [...] Tacrolimus level (10/24/2025 7:23 AM EST) Pathologist [facility] Tacrolimus Lvl 6.4 6 - 15 ng/mL Whole Blood Result [facility] MD LAB BLOOD ORDERABLES Nadia l Result * (ABNORMAL) Renal Function Panel w/o EGFR (10/24/2025 7:23 AM EST) [facility] Glucose 100 BUN 16 CO2 28(A) 13 - 22 mmol/L Creatinine 0.90 Potassium 3.4 Sodium 136 Chloride 105 Phosphorus 3 2.5 - 4.9 mg/dL Calcium 7.7 EGFR 85 mg/dL Albumin 2.3(A) 3.5 - 5.0 g/dL Blood Result [facility] MD LAB BLOOD ORDERABLES Nadia l Result * Hepatic Function Panel (10/24/2025 7:23 AM EST) [facility] Bilirubin, Direct 0.4 Bilirubin, Indirect 0.6 Alkaline Phosphatase 149 ALT 210 AST 41 Total Bilirubin 1 Total Protein 4.8 Plasma Result [facility] MD LAB BLOOD ORDERABLES Nadia l Result * (ABNORMAL) CBC and differential (10/24/2025 7:23 AM EST) Pathologist [facility] Lymphocytes Absolute 0.8 / L Monocytes Absolute [...] documented as of this encounter Care Teams Welfare Case Worker Relationship Specialty Start Date End Date System, Provider Not In PCP - General 09/10/25 10/24/25 Dr. Chris Medel MD [address] [address] [place] [address] PCP - General Primary Care 10/25/25 documented as of this encounter
--- OUTSIDE RECORDS SUMMARY | 2025-11-12 07:24 | XMS_ITS | Encounter Summary ---
Author Organization [facility] Address [address] [place] [address] Care Team Providers Care Buyer Assistant Name Role Phone Dr. Chris Medel MD [...] release of HIV test results or diagnoses. [id number] Health Encounter Details Date Type Department Care Team (Late st Contact Info) Description 10/25/2025 Telephone [facility] Liver Transplant at [address] [place] [address] Pita Pike MA Social History Tobacco [...] Pike MA - 10/25/2025 11:46 AM EST [facility] called to say that they would not [...] his clinic appt and then relayed to [facility] that they would have to still pt on 11/01 for labs and incisional check. documented in this encounter Plan of Treatment Not on file documented as of this encounter Visit Diagnoses Not on filedocumented in this encounter Additional Health Concerns Assessment Noted Time PHQ-9 Depression Total Score: 8 09/10/20 25 11:09 AM EDT documented as of this encounter Care Teams Buyer Assistant Relationship Specialty Start Date End Date Dr. Chris Medel MD [address] [place] [address] PCP - General Primary Care 10/25/25 documented as of this encounter
--- OUTSIDE RECORDS SUMMARY | 2025-11-12 07:24 | XMS_ITS | Encounter Summary ---
Author Organization [facility] Address [address] [place] [address] Care Team Providers Care Machine Sorter Name Role Phone Unknown, Attending Provider Primary [...] release of HIV test results or diagnoses. [id number] Reason for Referral * Imaging/Cardiovascular Scan (Routine) - New Request Specialty Diagnoses / Procedures Referred By Contac t Referred To Contact Radiology Procedures CT Abdomen and or Pelvis Outside Exam System, Provider Not In [address] [address] Referral ID Status Reason Start Date Expiration Date V isits Requested Visits Authorized [id number] New Request 09/08/2025 03/07/2026 1 1 Encounter Details Date Type Department Care Team (Late st Contact Info) Description 04/21/2024 Orders Only EXTERNAL PROV RESULTS [address] [place] [address] System, Provider Not In Social History Tobacco [...] COVID-19 11/02/2025 11/03/2025 11/03/2025 6:09 AM EST documented as of this encounter Care Teams Machine Sorter Relationship Specialty Start Date End Date Unknown, Attending Provider PCP - General 08/29/2508/16 System, Provider Not In PCP - General 09/10/25 10/24/25 Dr. Chris Medel MD [address] [address] [place] [address] PCP - General Primary Care 10/25/25 documented as of this encounter
--- OUTSIDE RECORDS SUMMARY | 2025-11-12 07:24 | XMS_ITS | Encounter Summary ---
Author Organization [facility] [place] [facility] Address [address] [place] [address] Care Team Providers Care Mud Trucker Name Role Phone Unknown, Attending Provider Primary [...] release of HIV test results or diagnoses. [id number] Health Encounter Details Date Type Department Care Team (Late st Contact Info) Description 09/13/2024 Orders Only EXTERNAL PROV RESULTS [address] [place] [address] System, Provider Not In Social History Tobacco [...] as of this encounter Care Teams Mud Trucker Relationship Specialty Start Date End Date Unknown, Attending Provider PCP - General 08/29/2508/16 System, Provider Not In PCP - General 09/10/25 10/24/25 Dr. Chris Medel MD [address] [address] [address] [place] [address] PCP - General Primary Care 10/25/25 documented as of this encounter
--- OUTSIDE RECORDS SUMMARY | 2025-11-12 07:24 | XMS_ITS ---
Author Organization Unknown ENCOUNTERS Encounter Performer Location Date Diagnosis Diagnosis Status Inpatient [address] [place] [id number] [facility] [address] [place] [id number] Emergency [address] [place] [id number] A Pre Admit [address] [place] [id number] Pre Admit [address] [place] [phone] Emergency [address] [address] [place] [address] [id number] [facility] *Note: Encounters from your own facility or health system may be excluded. Allergies, Adverse Reactions, Alerts Allergen Type Severity Identification Date lisinopril drug allergy 1 [id number] atorvastatin drug allergy 3 [id number] Medications Name Date Quantity Days Supplied GPI Number
--- OUTSIDE RECORDS SUMMARY | 2025-11-12 07:24 | XMS_ITS | Encounter Summary ---
Author Organization [facility] Address [address] [place] [address] Care Team Providers Care Script Editor Name Role Phone Unknown, Attending Provider Primary [...] release of HIV test results or diagnoses. [id number] Reason for Referral * Imaging/Cardiovascular Scan (Routine) - New Request Specialty Diagnoses / Procedures Referred By Contac t Referred To Contact Radiology Procedures CT Abdomen and or Pelvis Outside Exam System, Provider Not In [address] [address] Referral ID Status Reason Start Date Expiration Date V isits Requested Visits Authorized [id number] New Request 09/08/2025 03/07/2026 1 1 Encounter Details Date Type Department Care Team (Late st Contact Info) Description 03/14/2025 Orders Only EXTERNAL PROV RESULTS [address] [place] [address] System, Provider Not In Social History Tobacco [...] documented as of this encounter Care Teams Script Editor Relationship Specialty Start Date End Date Unknown, Attending Provider PCP - General 08/29/2508/16 System, Provider Not In PCP - General 09/10/25 10/24/25 Dr. Chris Medel MD [address] [address] [place] [address] PCP - General Primary Care 10/25/25 documented as of this encounter
--- OUTSIDE RECORDS SUMMARY | 2025-11-12 07:24 | XMS_ITS | Encounter Summary ---
Author Organization Healthcare Address [address] [place] [address] Care Team Providers Care Radiation Protection Specialist Name Role Phone Ruma Heránndez CURATORIAL SPECIALIST Unavailable [phone] Chris Medel MD Primary Care Provider [phone] Encounter Details Date Type Department Care Team (Late st Contact Info) Description 08/31/2025 Results Follow-Up [facility] [address] [place] [address] Meaghan Le, RN [facility] LIVER [id number] [address] [place] [address] Social History Tobacco Use Types Packs/Day Years [...] health [facility] or episcopal services? More than 4 times per year 02/19/2025 Do you belong to any clubs o r organizations such as nondenominational groups, unions, [employer] or athletic groups, or school groups? Yes [...] hard at all 06/15/2025 [facility] - Occupational Stress Questionnaire [...] time in the past 12 m [facility], were you homeless or living in a [...] the past 12 months has th e [employer] gas, oil, or water [employer] threatened to shut off services in your [...] [address], [address] [place] [address] Suhail Brock MD [address] [place] [address] 01/24/2026 4:40 PM EDT Office Visit Professional [email or web address] [place] [facility] Mineral Metabolism [address], [address] [place] [address] Moustapha Katz MD [address] [facility] [address] [place] [address] documented as of this encounter [...] documented as of this encounter Care Teams Radiation Protection Specialist Relationship Specialty [place] [address] PCP - General 03/14/25 Ruma Hernández APRN [address] [place] [address] Referring Physician Gastroenterology 07/30/23 documented as of this encounter
--- OUTSIDE RECORDS SUMMARY | 2025-11-12 07:24 | XMS_ITS | Encounter Summary ---
Author Organization [facility] Address [address] [place] [address] Care Team Providers Care Cut Out Press Operator Name Role Phone Unknown, Attending Provider [...] release of HIV test results or diagnoses. [id number] Health Encounter Details Date Type Department Care Team (Late st Contact Info) Description 06/13/2025 Orders Only EXTERNAL PROV RESULTS [address] [place] [address] System, Provider Not In Social History Tobacco [...] of this encounter Care Teams Cut Out Press Operator Relationship Specialty Start Date End Date Unknown, Attending Provider PCP - General 08/29/2508/16 System, Provider Not In PCP - General 09/10/25 10/24/25 Dr. Chris Medel MD [address] [address] [address] [place] [address] PCP - General Primary Care 10/25/25 documented as of this encounter
--- OUTSIDE RECORDS SUMMARY | 2025-11-12 07:24 | XMS_ITS | Encounter Summary ---
Author Organization Healthcare Address [address] [place] [address] Care Team Providers Care Lockstitch Sleeve Setter Name Role Phone Ruma Hernándze WIGS SALESPERSON Unavailable [phone] Chris Medel MD Primary Care Provider [phone] Encounter Details Date Type Department Care Team (Late st Contact Info) Description 07/19/2025 Results Follow-Up [facility] [address] [place] [address] Meaghan Le, RN [facility] LIVER [id number] [address] [place] [address] Social History Tobacco Use Types Packs/Day Years [...] r organizations such as confucianism groups, unions, [employer] or athletic groups, or school groups? Yes [...] at all 06/15/[address] [facility] - Occupational Stress Questionnaire [...] drink first t luisa in the morning (EYE-CONTOUR STITCHER) to steady your nerves or to get rid of a hangover? 0 06/14/2025 CAGE Questionnaire Score 0 025 Utilities Answer Date Recorded In the past 12 months has e [employer], gas, oil, or water [employer] threatened to shut off services in [...] [facility] [place], [address] [place] [address] Suhail Brock MD [address] [place] [address] 01/24/2026 4:40 PM EDT Office Visit [facility] Mineral Met[facility] [address] [facility] [place] [place] [address] Moustapha Katz MD [address] [facility] [place] [address] [place] [address] documented as of this [...] documented as of this encounter Care Teams Lockstitch Sleeve Setter Relationship Specialty [place] [address] PCP - General 03/14/25 Ruma Hernández APRN [address] [place] [address] Referring Physician Gastroenterology 07/30/23 documented as of this encounter
--- OUTSIDE RECORDS SUMMARY | 2025-11-12 07:25 | XMS_ITS | Encounter Summary ---
Author Organization Healthcare Address [address] [place] [address] Care Team Providers Care Change Consultant Name Role Phone Urban Brantley DO Primary Care Provider [phone] Ruma Hernández MECHANICAL CAR CHECKER Unavailable [phone] Chris Medel MD Primary Care Provider [phone] Encounter Details Date Type Department Care Team (Late Contact Info) Description 03/22/2023 Orders Only External Location [address] [place] [address] Provider, External Social History Tobacco Use Types [...] Upcoming Encounters Date Type Department Care Team ([facility] Contact Info) Description 11/27/2025 3:45 PM EST Office Visit Medical Office Building Urology [address] [facility] [place] [address] Suhail Brock MD [address] [place] [address] 01/24/2026 4:40 PM EDT Office Visit Professional [employer] [facility] Min[facility] Met[facility] [address] [facility], [address] [place] [address] Moustapha Katz MD [address] [facility] [address] [place] [address] documented as of this encounter [...] documented as of this encounter Care Teams Change Consultant Relationship Specialty Start Date End Date Urban Brantley DO [address] [place], [place] [id number] PCP - General 07/30/23 03/13/25 [place] [address] PCP - General 03/14/25 Ruma Hernández APRN [address] [facility] [address] [place], [place] [phone] Referring Physician Gastroenterology 07/30/23 documented as of this encounter
--- OUTSIDE RECORDS SUMMARY | 2025-11-12 07:25 | XMS_ITS | Encounter Summary ---
Author Organization Healthcare Address [address] [place] [address] Care Team Providers Care Land Use Planner Name Role Phone Urban Brantley DO Primary Care Provider [phone] Ruma Hernández LINEN ROOM WORKER Unavailable [phone] Chris Medel MD Primary Care Provider [phone] Encounter Details Date Type Department Care Team (Late st Contact Info) Description 12/30/2023 Orders Only External Location [address] [place] [address] Urban Stafford MD 12[address] [facility] [address] [place] [address] Social History Tobacco Use Types [...] [facility], [address] [place] [address] Suhail Brock MD [address] [place] [address] 01/24/2026 4:40 PM EDT Office Visit [facility] [address] [facility], [address] [place] [address] Moustapha Katz MD [address] [facility] [address] [place] [address] documented as of this encounter [...] as of this encounter Care Teams Land Use Planner Relationship Specialty Start Date End Date Urban Brantley DO [address] [place] [address] PCP - General 07/30/23 03/13/25 [place] [address] PCP - General 03/14/25 Ruma Hernández APRN [address] [place] [address] Referring Physician Gastroenterology 07/30/23 documented as of this encounter
--- OUTSIDE RECORDS SUMMARY | 2025-11-12 07:25 | XMS_ITS | Encounter Summary ---
Author Organization [facility] Address [address] [place] [address] Care Team Providers Care Idea Man Name Role Phone Dr. Chris Medel MD [...] release of HIV test results or diagnoses. [id number] Reason for Visit * Reason Comments Results Critical Lab Results Encounter Details Date Type Department Care Team ([facility] Contact Info) Description 11/02/2025 Telephone [facility] Liver Transplant at [address] [address] Ruma Benjamin RN Results; Critical [...] in a care home (including now)? No 11/02/2025 Utilities Answer [...] Encounter - Ruma Benjamin RN - 11/02/2025 1:40 PM EST RN contacted Dr Drew by phone to discuss labs. Per Dr Drew: Direct Admit to 8CCP Referring & Accepting: Viki Dx Elevated LFTs & Bili LOC Med surg Safe to wait at home for room RN called CM and facilitated DA for today. RN called and spoke to SO and explained situation and need for readmission. RN answered SO's questions and SO denies further needs at this time. * Telephone Encounter - Ruma Benjamin RN [...] documented as of this encounter Care Teams Idea Man Relationship Specialty Start Date End Date Dr. Chris Medel MD [address] [place] [address] PCP - General Primary Care 10/25/25 documented as of this encounter
--- OUTSIDE RECORDS SUMMARY | 2025-11-12 07:25 | XMS_ITS | Encounter Summary ---
Author Organization [facility] Address [address] [place] [address] Care Team Providers Care Thermal Engineer Name Role Phone Dr. Chris Medel [...] release of HIV test results or diagnoses. [id number] Health Encounter Details Date Type Department Care Team (Late st Contact Info) Description 11/02/2025 Telephone [facility] Liver Transplant at [address] [place] [address] Pita Pike MA Social History Tobacco [...] documented as of this encounter Care Teams Thermal Engineer Relationship Specialty Start Date End Date Dr. Chris Medel MD [address] [facility] [place] [address] PCP - General Primary Care 10/25/25 documented as of this encounter
--- OUTSIDE RECORDS SUMMARY | 2025-11-12 07:25 | XMS_ITS | Encounter Summary ---
Author Organization Healthcare Address [address] [place] [address] Care Team Providers Care Thread Roller Name Role Phone Ruma Hernández LAUNDERETTE ATTENDANT Unavailable [phone] Chris Medel MD Primary Care Provider [phone] Encounter Details Date Type Department Care Team (Late st Contact Info) Description 09/12/2025 Results Follow-Up [facility] [address] [place] [phone] Meaghan Le, RN [facility] LIVER [id number] [address] [place] [address] Social History Tobacco Use Types Packs/Day Years [...] do you attend [facility] or bahai services? More than 4 times per year 02/19/2025 Do you belong to any clubs o r organizations such as hoahaoism groups, unions, [employer] or athletic groups, or school groups? Yes [...] all 06/15/2025 [facility] - Occupational Stress Questionnaire [...] drink first t luisa in the morning (EYE-SOFT METALS ENGRAVER HAND) to steady your nerves or to get rid of a hangover? 0 06/14/2025 CAGE Questionnaire Score 0 025 Utilities Answer Date Recorded In the past 12 months has th e [employer], gas, oil, or water [employer] threatened to shut off services in [...] [address] [facility], [address] [place] [address] Suhail Brock MD [address] [facility] [address] [place] [address] 01/24/2026 4:40 PM EDT Office Visit [facility] [address] [facility], [address] [place] [address] Moustapha Katz MD [address] [facility] [address] [place] [address] documented as of this encounter [...] documented as of this encounter Care Teams Thread Roller Relationship Specialty [place] [address] PCP - General 03/14/25 Ruma Hernández APRN 17[address] [facility] [address] [place] [address] Referring Physician Gastroenterology 07/30/23 documented as of this encounter
--- OUTSIDE RECORDS SUMMARY | 2025-11-12 07:25 | XMS_ITS | Encounter Summary ---
Author Organization [facility] Address [address] [place] [address] Care Team Providers Care Automotive Electrical Helper Name Role Phone Dr. Chris Medel MD [...] release of HIV test results or diagnoses. [id number] Reason for Referral * Physician/ELÍAS (Emergency) - No Authorization Required Specialty Diagnoses / Procedures Referred By Contac t Referred To Contact Urology Diagnoses S/P liver transplant ([facility]) Dark brown urine [facility] Liver Transplant at [address] [address] Phone: tel: fax: Referral ID Status Reason Start Date Expiration Date Visits Requested Visits Authorized [id number] No Authorization Required 05/01/2026 1 1 Scheduling Instructions For appointments, please call [phone]. Encounter Details Date Type Department Care Team (Late st Contact Info) Description 11/01/2025 Orders Only [facility] Liver Transplant at [address] [address] Ruma Benjamin RN S/P liver transplant (CMS-HCC) [...] living in a long-term (including now)? No 11/02/2025 Utilities Answer Date [...] as of this encounter Care Teams Automotive Electrical Helper Relationship Specialty Start Date End Date Dr. Chris Medel MD [address] [place] [address] PCP - General Primary Care 10/25/25 documented as of this encounter
--- OUTSIDE RECORDS SUMMARY | 2025-11-12 07:25 | XMS_ITS | Encounter Summary ---
Author Organization [facility] Address [address] [place] [address] Care Team Providers Care Mobile Electronics Installer Name Role Phone Dr. Chris Medel MD [...] release of HIV test results or diagnoses. [id number] Health Encounter Details Date Type Department Care Team (Late st Contact Info) Description 11/02/2025 Telephone [facility] Liver Transplant at [address] [address] Nina Hawkins MA Social History [...] in a senior care (including now)? No 11/02/2025 Utilities Answer Date Recorded In the past 12 months has th e [employer], gas, oil, or water [employer] threatened to shut off services in your [...] urine collection. Coordinated with CC SILVIO Iglesias. Kelsie has placed urine orders and would like [...] as of this encounter Care Teams Mobile Electronics Installer Relationship Specialty Start Date End Date Dr. Chris Medel MD [address] [place] [address] PCP - General Primary Care 10/25/25 documented as of this encounter
--- OUTSIDE RECORDS SUMMARY | 2025-11-12 07:25 | XMS_ITS | Encounter Summary ---
Author Organization Healthcare Address [address] [place] [address] Care Team Providers Care Machine Welder Name Role Phone Urban Brantley DO Primary Care Provider [phone] Ruma Hernández WELL DRILLER HELPER Unavailable [phone] Chris Medel MD Primary Care Provider [phone] Encounter Details Date Type Department Care Team (Late Contact Info) Description 05/09/2023 Orders Only External Location [address] [place] [address] Provider, External Social History Tobacco Use Types [...] [facility], [address] [place] [address] Suhail Brock MD [address] [place] [address] 01/24/2026 4:40 PM EDT Office Visit [employer] [facility] [address] [facility], [address] [place] [address] Moustapha Katz MD [address] [facility] [address] [place] [address] documented as [...] as of this encounter Care Teams Machine Welder Relationship Specialty Start Date End Date Urban Brantley DO [address] [place] [address] PCP - General 07/30/23 03/13/25 [place] [address] PCP - General 03/14/25 Ruma Hernández APRN 1780 [facility] [address] [place], [place] [id number] Referring Physician Gastroenterology 07/30/23 documented as of this encounter
--- OUTSIDE RECORDS SUMMARY | 2025-11-12 07:25 | XMS_ITS | Encounter Summary ---
Author Organization [facility] Address [address] [place] [address] Care Team Providers Care Polystyrene Molding Machine Tender Name Role Phone Dr. Chris Medel MD [...] release of HIV test results or diagnoses. [id number] Health Encounter Details Date Type Department Care Team (Late st Contact Info) Description 11/02/2025 Chart Note [facility] Liver Transplant at [address] [place] [address] Pita Pike MA Social History Tobacco Use [...] living in a mcc (including now)? No 11/02/2025 Utilities Answer Date Recorded In the past 12 months has th e [employer], gas, oil, or water [employer] threatened to shut off services in your [...] 2.9(A) 3.5 - 5.0 g/dL Blood Result [facility] Provider LAB BLOOD ORDERABLES Nadia l [...] 10^6/ L WBC 13.2 10^3/mL Blood Result [facility] Provider LAB BLOOD ORDERABLES Nadia l Result * Hepatic Function Panel (11/01/2025 7:05 AM EST) Bilirubin, Direct 4.8 Alkaline Phosphatase 335 ALT 96 AST 87 Total Bilirubin 7.4 Total Protein 5.7 Plasma Result [facility] Historical Provider LAB BLOOD ORDERABLES Nadia l [...] documented as of this encounter Care Teams Polystyrene Molding Machine Tender Relationship Specialty Start Date End Date Dr. Chris Medel MD [address] [place] [address] PCP - General Primary Care 10/25/25 documented as of this encounter
--- OUTSIDE RECORDS SUMMARY | 2025-11-12 07:25 | XMS_ITS | Encounter Summary ---
Author Organization [facility] Address [address] [place] [address] Care Team Providers Care Rock Contractor Name Role Phone Dr. Chris Medel MD [...] release of HIV test results or diagnoses. [id number] Health Encounter Details Date Type Department Care Team (Late st Contact Info) Description 10/25/2025 Telephone [facility] Liver Transplant at [address] [address] Giovanna June RN Social History [...] the past 12 months has th e [employer], gas, oil, or water [employer] threatened to shut off services in your [...] documented as of this encounter Care Teams Rock Contractor Relationship Specialty Start Date End Date Dr. Chris Medel MD [address] [place] [address] PCP - General Primary Care 10/25/25 documented as of this encounter
--- OUTSIDE RECORDS SUMMARY | 2025-11-12 07:25 | XMS_ITS | Encounter Summary ---
Author Organization [facility] Address [address] [place] [address] Care Team Providers Care Plater Supervisor Name Role Phone System, Provider Not [...] release of HIV test results or diagnoses. [id number] Reason for Visit * Reason Comments Prior Authorization Encounter Details Date Type Department Care Team (Late st Contact Info) Description 09/18/2025 Pharmacy Services [facility] [address] [place] [address] Delaney Bahena RXT Social History Tobacco Use [...] 6 or 8 digit gomez, if available) [id number] 09/18/2025 11:18 AM Delaney Henderson RXT Medication [...] 11:18 AM Delaney Henderson RXT Dispensing Pharmacy [facility] 11:18 AM Delaney Henderson RXT Prior Authorization Status Submitted via [employer] [facility] 09/18/2025 11:18 AM Delaney Henderson RXT Prior Authorization Determination Approved 09/18/2025 11:18 AM Delaney Henderson RXT Approval Number [place] Case: [id number] 09/18/2025 11 :18 AM Delaney Henderson, RXT [...] documented as of this encounter Care Teams Plater Supervisor Relationship Specialty Start Date End Date System, Provider Not In PCP - General 09/10/25 10/24/25 documented as of this encounter
--- OUTSIDE RECORDS SUMMARY | 2025-11-12 07:25 | XMS_ITS ---
Author Organization [facility] Address [address] [place] [address] Care Team Providers Care Jukebox Routeman Name Role Phone Dr. Chris Medel MD Primary Care Provider + Transplant Episode Liver Recipient [facility] ([place] [place] Organ Received: Liver Transplanted on 10/17/2025 Marked as Active Follow-up on 10/17/2025 Liver CoordinatorRuma Benjamin RN Phone: N/A Fax: N/A Email: N/A Qagan Tay[place]ungin Organ Diagnosis Organ Primary Contributory Liver Acute [...] N/A N/A Vani Drew MD Txp Surgeon [phone] N/A Portia Maguire Referring Physician [phone] N/A Michelle Ho MSW, FIREWORKS MAKER Txp Science Faculty Member N/A N/A N/A Ruma Benjamin RN Txp Post Coordinator N/A N/A N/A Events Post-Transplant Pre-Transplant Admitted: 10/17/2025 Referred: 08/02/2025 Transplanted: 10/17/2025 Evaluation began: 5 Discharged: 10/22/2025 Committee: 09/11/2025 Center waitlisted: 5 Appointments (10/13/2025 - 12/13/2025) When With Visit Type Description 10/30/2025 Txp Hep - Erasmo, A Established Patient Enc ounter for therapeutic drug level monitoring (Primary Dx); Liver replaced by transplant (CMS-HCC); Immunosuppression (CMS-HCC); Immunosuppressive management encounter following liver transplant (CMS-HCC)
--- OUTSIDE RECORDS SUMMARY | 2025-11-12 07:25 | XMS_ITS | Encounter Summary ---
Author Organization [facility] Address [address] [place] [address] Care Team Providers Care Uniforms Sales Representative Name Role Phone System, Provider [...] release of HIV test results or diagnoses. [id number] Health Encounter Details Date Type Department Care Team (Late st Contact Info) Description 09/17/2025 Refill [facility] at [facility] [address] [address] [place] [phone] Johnny Dubois RN Social History Tobacco Use [...] medication will need to be sent to [facility] pharmacy to be filled. Gave [facility] pharmacy phonenumber to call about getting medication mailed to their house possibly. documented in this encounter Plan of Treatment Not on file documented as of this encounter Visit Diagnoses Not on filedocumented in this encounter Additional Health Concerns Assessment Noted Time PHQ-9 Depression Total Score: 8 09/10/20 25 11:09 AM EDT documented as of this encounter Care Teams Uniforms Sales Representative Relationship Specialty Start Date End Date System, Provider Not In PCP - General 09/10/25 10/24/25 documented as of this encounter
--- OUTSIDE RECORDS SUMMARY | 2025-11-12 07:25 | XMS_ITS | Encounter Summary ---
Author Organization Healthcare Address [address] [place] [address] Care Team Providers Care Black And White Printer Operator Name Role Phone Urban Brantley DO Primary Care Provider [phone] Ruma Hernández SOILS ANALYST Unavailable [phone] Chris Medel MD Primary Care Provider [phone] Encounter Details Date Type Department Care Team (Late Contact Info) Description 03/22/2023 Orders Only External Location [address] [place] [address] Provider, External Social History Tobacco Use Types [...] Upcoming Encounters Date Type Department Care Team ([facility] Contact Info) Description 11/27/2025 3:45 PM EST Office Visit Medical Office Building Urology [address] [facility], [address] [place] [address] Suhail Brock MD [address] [place] [address] 01/24/2026 4:40 PM EDT Office Visit [facility] [employer] [facility] [address] [facility], [address] [place] [address] Moustapha Katz MD [address] [facility] [address] [place] [address] documented as of this [...] as of this encounter Care Teams Black And White Printer Operator Relationship Specialty Start Date End Date Urban Brantley DO [address] [place] [address] PCP - General 07/30/23 03/13/25 [place] [address] PCP - General 03/14/25 Ruma Hernández APRN [address] [facility] [address] [place], [place] [address] Referring Physician Gastroenterology 07/30/23 documented as of this encounter
--- OUTSIDE RECORDS SUMMARY | 2025-11-12 07:25 | XMS_ITS ---
Author Organization [facility] Address [address] [place] [address] Care Team Providers Care Web Press Operator Assistant Name Role Phone Ruma Hernández APRN Unavailable [phone] Chris Medel MD Primary Care Provider [phone] Transplant Episode Liver Candidate [facility] ([place], [place]) - 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
--- OUTSIDE RECORDS SUMMARY | 2025-11-12 07:25 | XMS_ITS | Encounter Summary ---
Author Organization [facility] Address [address] [place] [id number] Care Team Providers Care Healthcare Or Medical Name Role Phone System, Provider Not In [...] release of HIV test results or diagnoses. [id number] Health Encounter Details Date Type Department Care Team (Late st Contact Info) Description 09/10/2025 Social Work [facility] Liver Transplant at [address] [address] Michelle Ho MSW, RESAW TAILER Social History Tobacco Use Types Packs/Day Years [...] this encounter Functional Status * Over the last 2 weeks, how often have you been bothered by the following problems? Question Answer Date of Assessment Author Feeling nervous, anxious or on edge: 0 09/10/2025 11:09 AM EDT Szarka, Michelle , CIVIL CLERK, RESAW TAILER Not being able to stop or control worryin 09/10/2025 11:09 AM EDT Samantha Ho CIVIL CLERK, RESAW TAILER Worrying too much about different things: 0 09/10/2025 11:09 AM EDT Michelle Ho , CIVIL CLERK, RESAW TAILER Trouble relaxin 09/10/2025 11:09 AM EDT Michelle Ho CIVIL CLERK, RESAW TAILER Being so restless that it is hard to sit still: 0 09/10/2025 11:09 AM EDT Michelle Ho , CIVIL CLERK, RESAW TAILER Becoming easily annoyed or irritable: 0 09/10/2025 11:09 AM EDT Mil Ho, CIVIL CLERK, RESAW TAILER Feeling afraid as if something awful might happen: 0 09/10/2025 11:09 AM EDT Michelle Ho CIVIL CLERK, RESAW TAILER CLAUDIA-7 Total Score 1 09/10/2025 11:09 AM EDT Michelle Ho CIVIL CLERK, RESAW TAILER If you checked off any problems, how difficult have these problems made it for you to do your work, take care of things at home, or get along with other people? Not difficult at all 09/10/2025 11:09 AM EDT Michelle Ho CIVIL CLERK, RESAW TAILER * PHQ-9 Total Score Answer Date of Assessment Author 8 09/10/2025 11:09 AM EDT Michelle Ho CIVIL CLERK, RESAW TAILER * Please rate how confident you are that you can do the following things at present, despite the pain Question Answer Date of Assessment Author 1. I can enjoy things, despite the pain 6 09/10/2025 11:10 AM EDT Michelle Ho MSW, RESAW TAILER 2. 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 I can socialise with my friends or family members as often as I used to do, despite the pain 6 09/10/2025 11:10 AM EDT Michelle Ho MSW, RESAW TAILER 4. I can cope with my pain i n most situations 6 09/10/2025 11:10 AM EDT Michelle Ho MSW, LSW 5. I can do some form of work, despite the pain 6 09/10/2025 11:10 AM EDT Kathia Ho MSW RESAW TAILER 6. I can still do many of th e things I enjoy doing, such as hobbies or leisure activity, despite pain 6 09/10/2025 11:10 AM EDT Michelle Ho MSW, LSW 7. I can cope with my pain without medication 6 09/10/2025 11:10 AM EDT Michelle Ho MSW, LSW 8. I can still accomplish most of my goals in life, despite the pain 6 09/10/2025 11:10 AM EDT Michelle Ho MSW, LSW 9. I can live a normal lifestyle, despite the pain 6 09/10/2025 11:10 AM EDT Michelle Ho MSW, LSW 10. I can gradually become more active, despite the pain 6 09/10/2025 11:10 AM EDT Michelle Ho MSW, LSW * CLAUDIA-2 Total Score Answer Date of Assessment Author 0 09/10/2025 11:09 AM Michelle Kowalski MSW, LSW * Interventions Question Answer Date of Assessment Author Intervention Type Case Management/Care Coordination 09/19/2025 12:24 PM Michelle Frias MSW, LSW Date of Service [id number] 09/19/2025 12:24 PM Michelle Frias MSW, LSW Time Spent with Patient(minutes) 60 09/19/2025 12:24 PM Michelle Frias MSW, LSW Outcomes Patient Need Met - N o further needs at this time 09/19/2025 12:24 PM Michelle Frias MSW, LSW Referral Source Family Member 09/19/2025 12:24 PM Michelle rFias MSW, LSW Comments: chart review, eval, documentation, case collaboration 09/19/2025 12:23 PM EST Michelle Ho MSW, RESAW TAILER Role Liver Transplant 09/19/2025 12:2 4 PM EST Michelle Ho MSW, RESAW TAILER * Over the last 2 weeks, how often have you been bothered by any of the following problems? Question Answer Date of Assessment Author Little interest or pleasure in doing things 0 09/10/2025 11:09 AM EDT Michelle Ho MSW, RESAW TAILER Feeling down, depressed, or hopeless 0 09/10/2025 11:09 AM EDT Michelle Ho MSW, RESAW TAILER Trouble falling or staying asleep, or sleeping too much 2 09/10/2025 11:09 AM EDT Michelle Ho MSW, RESAW TAILER Feeling tired or having little energy 2 09/10/2025 11:09 AM EDT Michelle Ho MSW, RESAW TAILER Poor appetite or overeating 2 09/10/2025 11:09 AM EDT Michelle Ho MSW, RESAW TAILER Feeling bad about yourself - or that you are a failure or have let yourself or your family down 0 09/10/2025 11:09 AM EDT Michelle Ho MSW, RESAW TAILER Trouble concentrating on things, such as reading the newspaper or watching television 1 09/10/2025 11:09 AM EDT Michelle Ho MSW, RESAW TAILER Moving or speaking so slowly that other people could have noticed. Or the opposite - being so fidgety or restless that you have been moving around a lot more than usual 1 09/10/2025 11:09 AM EDT Michelle Ho MSW, RESAW TAILER Thoughts that you would be better off , or of hurting yourself in some way 0 09/10/2025 11:09 AM EDT Michelle Ho MSW, RESAW TAILER PHQ-9 Total Score 8 09/10/2025 11: 09 AM EDT Michelle Ho MSW, RESAW TAILER If you checked off any problems, how difficult have these problems made it for you to do your work, take care of things at home, or get along with other people? Somewhat difficult 09/10/2025 11:09 AM EDT Michelle Ho MSW, RESAW TAILER * PHQ-2 Total Score Answer Date of Assessment Author 0 09/10/2025 11:09 AM EDT Michelle Ho MSW, RESAW TAILER * PHQ-9 Total Score Answer Date of Assessment Author 8 09/10/2025 11:09 AM EDT Michelle Ho MSW, RESAW TAILER * Please rate how confident you are that you can do the following things at present, despite the pain Question Answer Date of Assessment Author 1. I can enjoy things, despite the pain 6 09/10/2025 11:10 AM EDT Michelle Ho MSW, LSW 2. 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 I can socialise with my friends or family members as often as I used to do, despite the pain 6 09/10/2025 11:10 AM EDT Michelle Ho MSW, LSW 4. I can cope with my pain i n most situations 6 09/10/2025 11:10 AM NURYST Michelle Ho MSW, LSW 5. I can do some form of work, despite the pain 6 09/10/2025 11:10 AM NURYST Kathia Ho MSW RESAW TAILER 6. I can still do many of th e things I enjoy doing, such as hobbies or leisure activity, despite pain 6 09/10/2025 11:10 AM NURYST Michelle Ho MSW RESAW TAILER 7. I can cope with my pain without medication 6 09/10/2025 11:10 AM NURYST Michelle Ho MSW, LSW 8. I can still accomplish most of my goals in life, despite the pain 6 09/10/2025 11:10 AM NURYST Michelle Ho MSW, LSW 9. I can live a normal lifestyle, despite the pain 6 09/10/2025 11:10 AM EDT Michelle Ho MSW, RESAW TAILER 10. I can gradually become more active, despite the pain 6 09/10/2025 11:10 AM EDT Michelle Ho MSW, RESAW TAILER * Over the last 2 weeks, how often have you been bothered by any of the following problems? Question Answer Date of Assessment Author Little interest or pleasure in doing things 0 09/10/2025 11:09 AM EDT Michelle Ho MSW, RESAW TAILER Feeling down, depressed, or hopeless 0 09/10/2025 11:09 AM EDT Michelle Ho MSW, RESAW TAILER Trouble falling or staying asleep, or sleeping too much 2 09/10/2025 11:09 AM EDT Michelle Ho MSW, RESAW TAILER Feeling tired or having little energy 2 09/10/2025 11:09 AM EDT Michelle Ho MSW, RESAW TAILER Poor appetite or overeating 2 09/10/2025 11:09 AM EDT Michelle Ho MSW, RESAW TAILER Feeling bad about yourself - or that you are a failure or have let yourself or your family down 0 09/10/2025 11:09 AM EDT Michelle Ho MSW, RESAW TAILER Trouble concentrating on things, such as reading the newspaper or watching television 1 09/10/2025 11:09 AM EDT Michelle Ho MSW, RESAW TAILER Moving or speaking so slowly that other people could have noticed. Or the opposite - being so fidgety or restless that you have been moving around a lot more than usual 1 09/10/2025 11:09 AM EDT Michelle Ho MSW, RESAW TAILER Thoughts that you would be better off , or of hurting yourself in some way 0 09/10/2025 11:09 AM EDT Michelle Ho MSW, RESAW TAILER If you checked off any problems, how difficult have these problems made it for you to do your work, take care of things at home, or get along with other people? Somewhat difficult 09/10/2025 11:09 AM EDScott Ruanofanie, CIVIL CLERK, RESAW TAILER * PHQ-2 Total Score Answer Date of Assessment Author 0 09/10/2025 11:09 AM EDT PriscillaaMilie, CIVIL CLERK, RESAW TAILER * PHQ-9 Total Score Answer Date of Assessment Author 8 09/10/2025 11:09 AM EDT PriscillaaScottMichelle, CIVIL CLERK, RESAW TAILER documented as of this encounter Mental Status * Over the last 2 weeks, how often have you been bothered by the following problems? Question Answer Entry Date Author Feeling nervous, anxious or on edge: 0 09/10/2025 11:09 AM EDT Priscillaa, Michelle, CIVIL CLERK, RESAW TAILER Not being able to stop or control worryin 09/10/2025 11:09 AM EDT PriscillaaMichelle, CIVIL CLERK, RESAW TAILER Worrying too much about different things: 0 09/10/2025 11:09 AM EDT PriscillaaMichelle, CIVIL CLERK, RESAW TAILER Trouble relaxin 09/10/2025 11: 09 AM EDT PriscillaaMichelle, CIVIL CLERK, RESAW TAILER Being so restless that it is hard to sit still: 0 09/10/2025 11:09 AM EDT Priscillaa, Michelle, CIVIL CLERK, RESAW TAILER Becoming easily annoyed or irritable: 0 09/10/2025 11:09 AM EDT Priscillaa, Michelle, CIVIL CLERK, RESAW TAILER Feeling afraid as if something awful might happen: 0 09/10/2025 11:09 AM EDT PriscillaaMichelle, CIVIL CLERK, RESAW TAILER CLAUDIA-7 Total Score 1 09/10/2025 11: 09 AM EDT PriscillaaMichelle, CIVIL CLERK, RESAW TAILER If you checked off any problems, how difficult have these problems made it for you to do your work, take care of things at home, or get along with other people? Not difficult at all 09/10/2025 11:09 AM EDT PriscillaaMichelle, CIVIL CLERK, RESAW TAILER * Over the last 2 weeks, how often have you been bothered by any of the following problems? Question Answer Entry Date Author Little interest or pleasure in doing things 0 09/10/2025 11:09 AM EDT Michelle Ho MSW, RESAW TAILER Feeling down, depressed, or hopeless 0 09/10/2025 11:09 AM EDT Michelle Ho MSW, RESAW TAILER Trouble falling or staying asleep, or sleeping too much 2 09/10/2025 11:09 AM EDT Michelle Ho MSW, RESAW TAILER Feeling tired or having little energy 2 09/10/2025 11:09 AM EDT Michelle Ho MSW, RESAW TAILER Poor appetite or overeating 2 08/16 11:09 AM EDT Michelle Ho MSW, RESAW TAILER Feeling bad about yourself - or that you are a failure or have let yourself or your family down 0 09/10/2025 11:09 AM EDT Michelle Ho MSW, RESAW TAILER Trouble concentrating on things, such as reading the newspaper or watching television 1 09/10/2025 11:09 AM EDT Michelle Ho CIVIL CLERK, RESAW TAILER Moving or speaking so slowly that other people could have noticed. Or the opposite - being so fidgety or restless that you have been moving around a lot more than usual 1 09/10/2025 11:09 AM EDT Michelle Ho MSW, RESAW TAILER Thoughts that you would be better off , or of hurting yourself in some way 0 09/10/2025 11:09 AM EDT Michelle Ho MSW, RESAW TAILER PHQ-9 Total Score 8 09/10/2025 11: 09 AM EDT Michelle Ho MSW, RESAW TAILER If you checked off any problems, how difficult have these problems made it for you to do your work, take care of things at home, or get along with other people? Somewhat difficult 09/10/2025 11:09 AM EDT Michelle Ho MSW, RESAW TAILER documented in this encounter Progress Notes * MADHAV Arias LSW - 09/10/2025 11:59 PM EDT TRANSPLANT PSYCHOSOCIAL ASSESSMENT Support Persons: Stacy Pop (): [phone] Daniel (brother) Gloria (daughter) Urban Patterson (neighbor) Lan (son): [phone] Past and Current Life / Social Situation: [...] at [employer]. He does not have any hoahaoism, ethnic, or personal objections to accepting blood [...] Score 8 GAD7 Scores: 09/10/2025 11:09 AM [id number] Score CLAUDIA-7 Total Score 1 Reviewed results [...] discussed the patient's psychosocial evaluation with the health safety coordinator (Ezekiel Alcantar). The patient participated in [...] and phone number for additional needs. MADHAV Arias LSW [phone] TRANSPLANT PSYCH NOTEWRITER: [facility] Entry Point: [facility] Social Work Assessment: 01 New Patient SW Evaluation Location: 02 [facility] Patient Barriers & Recommendations: 01 No Barriers documented in this encounter Plan of Treatment Not on file documented as of this encounter Visit Diagnoses Not on filedocumented in this encounter Additional Health Concerns Assessment Noted Time PHQ-9 Depression Total Score: 8 09/10/20 11:09 AM EDT documented as of this encounter Care Teams Healthcare Or Medical Relationship Specialty Start Date End Date System, Provider Not In PCP - General 09/10/25 10/24/25 documented as of this encounter
--- OUTSIDE RECORDS SUMMARY | 2025-11-12 07:25 | XMS_ITS | Encounter Summary ---
Author Organization [facility] Address [address] [place] [id number] Care Team Providers Care Tube Wrapper Name Role Phone System, Provider Not In [...] release of HIV test results or diagnoses. [id number] Health Encounter Details Date Type Department Care Team (Late st Contact Info) Description 09/13/2025 Chart Note [facility] Liver Transplant at [address] [phone] Chapito Alcantar RN Multi-disciplinary Hepatobiliary Case Conference [...] as of this encounter Care Teams Tube Wrapper Relationship Specialty Start Date End Date System, Provider Not In PCP - General 09/10/25 10/24/25 documented as of this encounter
[2025-11-12 07:55] LABS: Hematocrit 25.0 % (42.0-52.0); Hemoglobin 8.5 g/dL (14.1-18.0); Immature Granulocytes % 6.0 %; Mean Corpuscular HGB Conc 34.0 g/dL (31.8-35.4); Mean Corpuscular Hemoglobin 35.4 pg (27.0-31.2); Mean Corpuscular Volume 104.2 fl (80-94); Nucleated Red Blood Cells % 0.9 %; Platelet Count 140 K/mm3 (142-424); Red Blood Count 2.40 M/mm3 (4.60-6.20); Red Cell Distribution Width-SD 90.1 fL; White Blood Count 5.7 K/mm3 (4.8-10.8)
[2025-11-12 10:26] LABS: Macrocytosis 1+; Total Cells Counted 100
[2025-11-12 11:14] LABS: Albumin Level 3.2 g/dl (3.5-5.0); Chloride 104 mmol/L (98-107); Sodium 137 mmol/L (136-145)
[2025-11-12 11:15] LABS: Potassium 4.0 mmoL/L (3.5-5.1)
[2025-11-12 11:17] LABS: Alanine Aminotransferase 46 U/L (12-78); Alkaline Phosphatase 316 U/L (38-126); Anion Gap 8.0 mEq/L (5-15); Aspartate Amino Transferase 30 U/L (17-59); Bilirubin,Direct 1.9 mg/dl (0.0-0.4); Bilirubin,Indirect 1.0 mg/dL (0.0-0.9); Bilirubin,Total 2.9 mg/dl (0.2-1.3); Bilirubin,Unconjugated 1.0 mg/dL (0.0-1.1); Blood Urea Nitrogen 20 mg/dl (9-20); Calcium 9.1 mg/dl (8.4-10.2); Carbon Dioxide 29 mmol/L (22.0-30.0); Creatinine,Serum 0.90 mg/dl (0.66-1.25); Estimated Glomerular Filt Rate 85 ml/min (>60); GFR (African American) 103 ML/MIN (>60); Glucose 127 mg/dl (74-100); Phosphorous 3.0 mg/dl (2.5-4.5); Total Protein,Serum 6.2 g/dl (6.3-8.2)
[2025-11-14 16:35] LABS: Tacrolimus (FK506), Blood 11.4 ng/mL (5.0-20.0)
== END 2025-11-12 23:59 | disposition home or self-care (01) ==
LOC: LAB 07:14
PROVIDERS: PCP Family Medicine; Visit Provider Surgery
DX: D84.9 Immunodeficiency, unspecified (principal); Z94.4 Liver transplant status; M81.8 Other osteoporosis without current pathological fracture
CPT/HCPCS: 36415; 80069; 80076; 80197; 85007; 85025